=== PATIENT | female | born 1990 | race Caucasian/White ===

== ENCOUNTER 2022-09-14 16:10 | Outpatient (RCR) | payer OTHER, SELFPAY | END 2022-11-04 12:27 | disposition home or self-care (01) | LOC: PT 16:10 | PROVIDERS: PCP Nurse Practitioner; Visit Provider Personal Emergency Response Attendant | DX: M25.511 Pain in right shoulder (principal); Z98.890 Other specified postprocedural states | CPT/HCPCS: 97110; 97161 ==

== ENCOUNTER 2022-09-17 13:29 | Outpatient (OUT) | payer OTHER, SELFPAY | END 2022-09-17 13:30 | disposition home or self-care (01) | PROVIDERS: PCP Nurse Practitioner; Visit Provider Obstetrics & Gynecology | DX: Z01.818 Encounter for other preprocedural examination (principal); N83.209 Unspecified ovarian cyst, unspecified side; R10.2 Pelvic and perineal pain; N94.10 Unspecified dyspareunia ==

== ENCOUNTER 2022-09-25 08:33 | Day surgery (SDC) | payer OTHER, SELFPAY ==
[2022-09-17 14:04] VITALS: BP 115/75; PULSE 69; RESP 14; TEMP 36.8; O2SAT 98; BMI 29.7
[2022-09-25] VITALS (11 sets, daily range): BP systolic 111–135; BP diastolic 73–90; PULSE 68–102; RESP 15–23; TEMP 36.2–36.3; O2SAT 96–100; BMI 29.9
[2022-09-25 06:18] LABS: Basophils Percent Auto 0.8 % (0.2-2.0); Eosinophils Absolute Auto 0.1 10^3/uL (0.0-0.7); Eosinophils Percent Auto 1.8 % (0.9-7.0); Hematocrit 40.6 % (36.0-48.0); Hemoglobin 13.9 g/dL (12.0-16.0); Lymphocytes Absolute Auto 1.4 10^3/uL (1.2-3.8); Mean Corpuscular HGB Conc 34.2 g/dL (29.9-35.2); Mean Corpuscular Hemoglobin 30.7 pg (26.7-34.0); Mean Corpuscular Volume 89.6 fL (81.0-99.0); Mean Platelet Volume 11.3 fL (9.5-13.5); Monocytes Absolute Auto 0.2 10^3/uL (0.3-0.8); Monocytes Percent Auto 5.8 % (1.7-12.0); Neutrophils Percent Auto 53.6 % (43.0-75.0); Platelet Count 273 10^3/uL (150-450); Red Blood Count 4.53 10^6/uL (4.20-5.40); Red Cell Distribution Width 12.9 % (11.0-15.0); White Blood Count 3.8 10^3/uL (4.0-11.0)
[2022-09-25] MEDS: LACTATED RINGER'S SOLUTION 1,000 ML 50 ML IV ×2 (07:30→08:34)
[2022-09-25] MEDS: SCOPOLAMINE 1 EACH PATCH.TD.3 1 PATCH TD (07:30)
--- NOTE | 2022-09-25 08:40 | P.ON_ITS ---
Brief Operative Note Date of procedure: 09/25/22 Pre-op diagnosis: pelvic pain Post-op diagnosis: same as pre-op Procedure: NAME OF PROCEDURE: [diagnostic laparoscopy with lt ovarian cystotomy ] PROCEDURE: The patient was taken back to the Operating Room where she was placed in dorsal lithotomy position after given general anesthesia. The patient was prepped and draped in normal sterile fashion. A sponge stick was placed into the patient's vagina. Attention was turned to the patient's abdomen, where a small umbilical incision was made. The fascia was tented using Julia clamps and the fascia was entered sharply. Confirmation of intraabdominal placement of the 10 mm port was confirmed under direct visualization using a laparoscope. The patient's abdomen was then insufflated using CO2 gas with approximately 4 liters. A second port was placed left laterally, this was done under direct visualization with a 5 mm port. Survey of the patient's abdomen demonstrated normal liver and gallbladder. Survey of the patient's pelvic anatomy demonstrated abscent rt ovary and lt and rt and uterus. sm lt ovarian cyst No endometrial implants could be noted, no evidence of any pelvic disease was seen, normal appearing pelvic cavity. All instruments were removed from the patient's abdomen. Lt ovarian cystotomy performed using monopolar scissors. The patient's abdomen was deinsufflated of CO2 gas. The patient tolerated the procedure well. Sponge stick was removed from the patient's vagina. The patient's infraumbilical fascia was closed using #0 Vicryl on a GI needle. The patient's skin was closed laterally and infraumbilically using 4-0 Vicryl. The patient tolerated the procedure well. Sponge, lap and needle counts were correct x 2. The patient was taken to Recovery Room in stable condition.Clips from prior surgery noted adhered to bladder, the clips were grasped and gently removed Anesthesia: [facility] Surgeon: Marcos Moreno Photographs Curator: Malka Carbajal Estimated blood loss (mL): 5 Pathology: none sent Condition: stable Disposition: PACU
[2022-09-25] MEDS: HYDROMORPHONE HCL 0.5 MG/0.5 ML SYRINGE IV (09:02)
[2022-09-25] MEDS: HYDROCODONE/ACETAMINOPHEN 5-325 MG TABLET 1 TAB PO (09:22)
== END 2022-09-25 11:35 | disposition home or self-care (01) ==
LOC: SURGOUT 09-28 08:33
PROVIDERS: PCP Nurse Practitioner; Visit Provider Obstetrics & Gynecology
PROC: (CPT 58662; principal; 2022-09-25 07:30)
DX: N83.202 Unspecified ovarian cyst, left side (principal); R10.2 Pelvic and perineal pain; G47.33 Obstructive sleep apnea (adult) (pediatric); I10 Essential (primary) hypertension; Z98.84 Bariatric surgery status; K21.9 Gastro-esophageal reflux disease without esophagitis; M19.90 Unspecified osteoarthritis, unspecified site; E61.1 Iron deficiency; Z87.442 Personal history of urinary calculi; Z90.49 Acquired absence of other specified parts of digestive tract; Z90.710 Acquired absence of both cervix and uterus; E07.9 Disorder of thyroid, unspecified; Z79.899 Other long term (current) 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; Z79.890 Hormone replacement therapy
CPT/HCPCS: 58662; 36415; 85025; J1170

== ENCOUNTER 2022-11-16 10:49 | Outpatient (OUT) | payer OTHER, SELFPAY ==
--- NOTE | 2022-11-16 12:02 | PM.CN ---
Consult Note: HPI Data of Consult Patient: new to practice Consult date: 11/16/22 Requesting Physician: Michelle Minor MD Primary Care Provider: JAQUAN MORROW Consult Narrative Reason for consult: low back pain Narrative: 32yof who presents for evaluation. worsening axial low back pain, worsened with standing and ambulation. imaging reviewed, which is significant for spondylosis of the lumbar spine. engaged in >6 weeks of provider directed home exercises, with limited relief. utilizes topamax. denies adverse med side effects. cc:: CC: Michelle Minor MD Review of Systems ROS Status of ROS 10 or more systems reviewed and unremarkable except as noted in history and below [facility] Medical History Anemia ?D64.9 - Anemia, unspecified (ICD-10) Anxiety ?F41.9 - Anxiety disorder, unspecified (ICD-10) Asthma ?J45.909 - Unspecified asthma, uncomplicated (ICD-10) COVID-19 (~02/2020) ?U07.1 - COVID-19 (ICD-10) Depression ?F32.A - Depression, unspecified (ICD-10) Dyspareunia Fibromyalgia ?M79.7 - Fibromyalgia (ICD-10) GERD (gastroesophageal reflux disease) ?K21.9 - Gastro-esophageal reflux disease without esophagitis (ICD-10) Headache ?R51.9 - Headache, unspecified (ICD-10) Hypothyroidism (acquired) ?E03.9 - Hypothyroidism, unspecified (ICD-10) Kidney stones ?N20.0 - Calculus of kidney (ICD-10) Mechanical ileus (01/31/20) ?K56.609 - Unspecified intestinal obstruction, unspecified as to partial versus complete obstruction (ICD-10) Migraine ?G43.909 - Migraine, unspecified, not intractable, without status migrainosus (ICD-10) Ovarian cyst ?N83.209 - Unspecified ovarian cyst, unspecified side (ICD-10) PCOS (polycystic ovarian syndrome) ?E28.2 - Polycystic ovarian syndrome (ICD-10) Pelvic pain ?R10.2 - Pelvic and perineal pain (ICD-10) PONV (postoperative nausea and vomiting) ?R11.2 - Nausea with vomiting, unspecified (ICD-10) ?Z98.890 - Other specified postprocedural states (ICD-10) Shingles ?B02.9 - Zoster without complications (ICD-10) Sleep apnea ?G47.30 - Sleep apnea, unspecified (ICD-10) Syncope (07/07/13) ?R55 - Syncope and collapse (ICD-10) Surgical History Delivery by section (06/19/19) Delivery by section (01/17/18) Delivery by section (~2016) H/O arthroscopy of right knee (08/07/20) ?Z98.890 - Other specified postprocedural states (ICD-10) H/O colonoscopy (~2018) ?Z98.890 - Other specified postprocedural states (ICD-10) H/O laparoscopy (07/18/20) ?Z98.890 - Other specified postprocedural states (ICD-10) H/O laparoscopy (11/10/19) ?Z98.890 - Other specified postprocedural states (ICD-10) H/O shoulder surgery (2022) ?Z98.890 - Other specified postprocedural states (ICD-10) H/O: hysterectomy (11/12/20) ?Z90.710 - Acquired absence of both cervix and uterus (ICD-10) History of appendectomy (09/25/19) ?Z90.49 - Acquired absence of other specified parts of digestive tract (ICD-10) History of cholecystectomy (10/06/13) ?Z90.49 - Acquired absence of other specified parts of digestive tract (ICD-10) History of esophagogastroduodenoscopy (EGD) (10/04/13) ?Z98.890 - Other specified postprocedural states (ICD-10) History of hernia repair (03/20/21) ?Z98.890 - Other specified postprocedural states (ICD-10) ?Z87.19 - Personal history of other diseases of the digestive system (ICD-10) History of hip surgery ?Z98.890 - Other specified postprocedural states (ICD-10) History of liver biopsy (~04/2020) ?Z98.890 - Other specified postprocedural states (ICD-10) History of thoracic surgery (~2021) ?Z98.890 - Other specified postprocedural states (ICD-10) Hx of tonsillectomy ?Z90.89 - Acquired absence of other organs (ICD-10) S/P laparoscopic sleeve gastrectomy (09/03/20) ?Z98.84 - Bariatric surgery status (ICD-10) S/P left knee arthroscopy ?Z98.890 - Other specified postprocedural states (ICD-10) S/P right knee arthroscopy (07/21/18) ?Z98.890 - Other specified postprocedural states (ICD-10) S/P right knee arthroscopy ?Z98.890 - Other specified postprocedural states (ICD-10) Family History Other Family history of cancer Family history of diabetes mellitus Family history of hypertension Family history of myocardial infarction PONV (postoperative nausea and vomiting) Social History Within the past year, how often did you have a drink containing alcohol: never Score interpretation: A score less than 3 is consistent with normal alcohol consumption. Smoking status: Never smoker Highest level of school completed/degree received: Master's degree Meds Home Medications and Allergies Home Medications Medication Instructions Recorded Confirmed Type escitalopram oxalate 10 mg tablet 20 mg PO QDAY 09/17/22 09/25/22 History estradiol 1 mg tablet 0.5 mg PO QDAY 09/17/22 09/25/22 History hydroxyzine HCl 25 mg tablet 25 mg PO Q6H PRN anxiety 09/17/22 09/25/22 History levothyroxine 125 mcg tablet 125 mcg PO QDAY 09/17/22 09/25/22 History linaclotide 145 mcg capsule 145 mcg PO QDAY 09/17/22 09/25/22 History (Linzess) liothyronine 5 mcg tablet 5 mcg PO QDAY 09/17/22 09/25/22 History mirtazapine 15 mg tablet 15 mg PO Q12H 09/17/22 09/25/22 History topiramate 100 mg tablet 100 mg PO QDAY 09/17/22 09/25/22 History hydrocodone 5 mg-acetaminophen 325 1 tab PO Q4H PRN pain 4 days #16 09/25/22 Rx mg tablet tabs Allergies Allergy/AdvReac Type Severity Reaction Status Date / Time adhesive Allergy Rash Verified 09/17/22 13:49 codeine Allergy Vomiting Verified 09/17/22 13:19 NSAIDS (Non-Steroidal Allergy intolerance Verified 09/17/22 13:49 Anti-Inflamma Exam Narrative Exam Narrative: Psych-alert and oriented x 3. Attentive and appropriate, constitutionally normal, displays normal mood and affect per situation.? There are no obvious deficits in memory, reasoning, or intellect.? Skin-no obvious rashes, bruising, erythema noted to the patient's area of pain. Extremities- extremities are warm with minimal edema and palpable pulses. Lumbar-no significant tenderness to palpation noted in the lumbar spine and paraspinal musculature.? Pain is elicited with extension, and lateral rotation of the lumbar spine. Range of motion is slightly diminished with these motions due to pain. Facet loading maneuvers are positive bilaterally and do appear to be concordant with the patient's normal complaints of pain.? Coordination remains intact.? Gait remains non-antalgic. Assessment and Plan Assessment and Plan (1) Lumbar spondylosis: Plan 32yof who presents for evaluation. failed conservative measures, as noted. imaging reviewed. given symptoms and imaging, prudent to attempt diagnostic bilateral l4-5, l5-s1 medial branch block under fluoroscopic guidance with intention of proceeding to radiofrequency ablation. she is in agreement. medications reviewed, no changes at this time. follow up after procedure
== END 2022-11-16 10:50 | disposition home or self-care (01) ==
LOC: PM 10:50
PROVIDERS: PCP Nurse Practitioner; Visit Provider Anesthesiology
DX: M47.816 Spondylosis without myelopathy or radiculopathy, lumbar region (principal)
CPT/HCPCS: G0463

== ENCOUNTER 2022-12-05 12:24 | Outpatient (REF) | payer OTHER, SELFPAY ==
[2022-12-05 12:54] LABS: Basophils Percent Auto 1.1 % (0.2-2.0); Eosinophils Absolute Auto 0.1 10^3/uL (0.0-0.7); Eosinophils Percent Auto 3.4 % (0.9-7.0); Hematocrit 33.1 % (36.0-48.0); Hemoglobin 11.3 g/dL (12.0-16.0); Immature Granulocytes Abs Auto 0.01 10^3/uL (0.00-0.03); Immature Granulocytes Pct Auto 0.3 % (0.0-0.5); Lymphocytes Absolute Auto 1.4 10^3/uL (1.2-3.8); Lymphocytes Percent Auto 38.5 % (20.5-60.0); Mean Corpuscular HGB Conc 34.1 g/dL (29.9-35.2); Mean Corpuscular Volume 90.9 fL (81.0-99.0); Mean Platelet Volume 13.1 fL (9.5-13.5); Monocytes Absolute Auto 0.3 10^3/uL (0.3-0.8); Monocytes Percent Auto 9.3 % (1.7-12.0); Neutrophils Absolute Auto 1.7 10^3/uL (1.4-6.5); Neutrophils Percent Auto 47.4 % (43.0-75.0); Platelet Count 190 10^3/uL (150-450); Red Blood Count 3.64 10^6/uL (4.20-5.40); Red Cell Distribution Width 13.2 % (11.0-15.0); White Blood Count 3.6 10^3/uL (4.0-11.0)
[2022-12-05 13:05] LABS: Alanine Aminotransferase 23 U/L (14-59); Albumin Globulin Ratio 1.4; Albumin Level 3.4 g/dL (3.4-5.0); Alkaline Phosphatase 66 U/L (46-116); Anion Gap 12.9; Aspartate Amino Transferase 24 U/L (15-37); BUN Creatinine Ratio 29.2; Bilirubin Total 0.3 mg/dL (0.2-1.0); Carbon Dioxide 25.9 mmol/L (21.0-32.0); Chloride 106 mmol/L (98-107); Estimated GFR (African America >60 (>=60); Estimated GFR (Non-African Ame >60 (>=60); Globulin 2.5 g/dL; Glucose 82 mg/dL (74-106); Magnesium 1.6 mg/dL (1.8-2.4); Phosphorus 3.9 mg/dL (2.6-4.7); Potassium 3.8 mmol/L (3.5-5.1); Sodium 141 mmol/L (136-145); Total Protein 5.9 g/dL (6.4-8.2); Triglycerides 70 mg/dL (<=150)
== END 2022-12-05 12:25 | disposition home or self-care (01) ==
LOC: LAB 12:24
PROVIDERS: PCP Nurse Practitioner
DX: Z79.899 Other long term (current) 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 (principal)
CPT/HCPCS: 36415; 80053; 83735; 84100; 84478; 85025

== ENCOUNTER 2022-12-22 15:26 | Outpatient (REF) | payer OTHER, SELFPAY ==
[2022-12-22 15:55] LABS: Basophils Absolute Auto 0.1 10^3/uL (0.0-0.1); Basophils Percent Auto 1.1 % (0.2-2.0); Eosinophils Absolute Auto 0.2 10^3/uL (0.0-0.7); Eosinophils Percent Auto 3.3 % (0.9-7.0); Hematocrit 34.1 % (36.0-48.0); Hemoglobin 11.6 g/dL (12.0-16.0); Immature Granulocytes Abs Auto 0.01 10^3/uL (0.00-0.03); Immature Granulocytes Pct Auto 0.2 % (0.0-0.5); Lymphocytes Absolute Auto 1.9 10^3/uL (1.2-3.8); Lymphocytes Percent Auto 41.6 % (20.5-60.0); Mean Corpuscular Hemoglobin 31.1 pg (26.7-34.0); Mean Corpuscular Volume 91.4 fL (81.0-99.0); Mean Platelet Volume 13.1 fL (9.5-13.5); Monocytes Absolute Auto 0.4 10^3/uL (0.3-0.8); Monocytes Percent Auto 9.4 % (1.7-12.0); Neutrophils Percent Auto 44.4 % (43.0-75.0); Platelet Count 187 10^3/uL (150-450); Red Blood Count 3.73 10^6/uL (4.20-5.40); Red Cell Distribution Width 13.1 % (11.0-15.0); White Blood Count 4.6 10^3/uL (4.0-11.0)
[2022-12-22 16:17] LABS: Alanine Aminotransferase 24 U/L (14-59); Albumin Globulin Ratio 1.1; Albumin Level 3.3 g/dL (3.4-5.0); Alkaline Phosphatase 61 U/L (46-116); Anion Gap 9.6; Aspartate Amino Transferase 31 U/L (15-37); BUN Creatinine Ratio 19.3; Bilirubin Total 0.3 mg/dL (0.2-1.0); Calcium 8.6 mg/dL (8.5-10.1); Carbon Dioxide 29.2 mmol/L (21.0-32.0); Chloride 103 mmol/L (98-107); Estimated GFR (African America >60 (>=60); Estimated GFR (Non-African Ame >60 (>=60); Glucose 78 mg/dL (74-106); Magnesium 1.9 mg/dL (1.8-2.4); Phosphorus 4.9 mg/dL (2.6-4.7); Potassium 3.8 mmol/L (3.5-5.1); Sodium 138 mmol/L (136-145); Total Protein 6.3 g/dL (6.4-8.2); Triglycerides 47 mg/dL (<=150)
== END 2022-12-22 15:27 | disposition home or self-care (01) ==
LOC: LAB 15:26
PROVIDERS: PCP Nurse Practitioner
DX: Z79.899 Other long term (current) 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 (principal)
CPT/HCPCS: 36415; 80053; 83735; 84100; 84478; 85025

== ENCOUNTER 2022-12-29 10:15 | Outpatient (REF) | payer OTHER, SELFPAY ==
[2022-12-29 10:39] LABS: Basophils Percent Auto 1.1 % (0.2-2.0); Eosinophils Percent Auto 0.8 % (0.9-7.0); Hematocrit 34.3 % (36.0-48.0); Hemoglobin 11.9 g/dL (12.0-16.0); Lymphocytes Absolute Auto 1.3 10^3/uL (1.2-3.8); Mean Corpuscular HGB Conc 34.7 g/dL (29.9-35.2); Mean Corpuscular Hemoglobin 31.7 pg (26.7-34.0); Mean Corpuscular Volume 91.5 fL (81.0-99.0); Mean Platelet Volume 12.8 fL (9.5-13.5); Monocytes Absolute Auto 0.5 10^3/uL (0.3-0.8); Monocytes Percent Auto 13.5 % (1.7-12.0); Neutrophils Absolute Auto 1.8 10^3/uL (1.4-6.5); Neutrophils Percent Auto 48.6 % (43.0-75.0); Platelet Count 169 10^3/uL (150-450); Red Blood Count 3.75 10^6/uL (4.20-5.40); White Blood Count 3.6 10^3/uL (4.0-11.0)
[2022-12-29 11:05] LABS: Calcium 8.5 mg/dL (8.5-10.1); Carbon Dioxide 23.6 mmol/L (21.0-32.0); Chloride 105 mmol/L (98-107); Estimated GFR (African America >60 (>=60); Estimated GFR (Non-African Ame >60 (>=60); Glucose 78 mg/dL (74-106); Potassium 3.6 mmol/L (3.5-5.1); Sodium 137 mmol/L (136-145)
[2022-12-29 11:06] LABS: Magnesium 1.8 mg/dL (1.8-2.4); Phosphorus 4.1 mg/dL (2.6-4.7); Triglycerides 70 mg/dL (<=150)
== END 2022-12-29 10:16 | disposition home or self-care (01) ==
LOC: LAB 10:15
PROVIDERS: PCP Nurse Practitioner
DX: I77.4 Celiac artery compression syndrome (principal)
CPT/HCPCS: 36415; 80048; 83735; 84100; 84478; 85025

== ENCOUNTER 2023-01-05 09:49 | Outpatient (REF) | payer OTHER, SELFPAY ==
[2023-01-05 10:20] LABS: Basophils Percent Auto 0.6 % (0.2-2.0); Eosinophils Absolute Auto 0.1 10^3/uL (0.0-0.7); Eosinophils Percent Auto 1.9 % (0.9-7.0); Hematocrit 35.1 % (36.0-48.0); Immature Granulocytes Abs Auto 0.01 10^3/uL (0.00-0.03); Immature Granulocytes Pct Auto 0.2 % (0.0-0.5); Lymphocytes Absolute Auto 1.3 10^3/uL (1.2-3.8); Lymphocytes Percent Auto 27.9 % (20.5-60.0); Mean Corpuscular HGB Conc 34.2 g/dL (29.9-35.2); Mean Corpuscular Hemoglobin 31.5 pg (26.7-34.0); Mean Corpuscular Volume 92.1 fL (81.0-99.0); Mean Platelet Volume 12.2 fL (9.5-13.5); Monocytes Absolute Auto 0.3 10^3/uL (0.3-0.8); Monocytes Percent Auto 6.3 % (1.7-12.0); Neutrophils Percent Auto 63.1 % (43.0-75.0); Platelet Count 198 10^3/uL (150-450); Red Blood Count 3.81 10^6/uL (4.20-5.40); Red Cell Distribution Width 12.8 % (11.0-15.0); White Blood Count 4.8 10^3/uL (4.0-11.0)
[2023-01-05 12:01] LABS: Anion Gap 13.8; BUN Creatinine Ratio 12.5; Calcium 8.5 mg/dL (8.5-10.1); Carbon Dioxide 23.5 mmol/L (21.0-32.0); Chloride 107 mmol/L (98-107); Estimated GFR (African America >60 (>=60); Estimated GFR (Non-African Ame >60 (>=60); Glucose 99 mg/dL (74-106); Phosphorus 3.7 mg/dL (2.6-4.7); Potassium 3.3 mmol/L (3.5-5.1); Sodium 141 mmol/L (136-145); Triglycerides 80 mg/dL (<=150)
== END 2023-01-05 09:50 | disposition home or self-care (01) ==
LOC: LAB 09:49
PROVIDERS: PCP Nurse Practitioner
DX: Z79.899 Other long term (current) 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 (principal)
CPT/HCPCS: 36415; 80048; 83735; 84100; 84478; 85025

== ENCOUNTER 2023-01-12 18:09 | Outpatient (REF) | payer OTHER, SELFPAY ==
[2023-01-12 19:17] LABS: Alanine Aminotransferase 18 U/L (14-59); Albumin Globulin Ratio 1.2; Albumin Level 2.7 g/dL (3.4-5.0); Alkaline Phosphatase 54 U/L (46-116); Aspartate Amino Transferase 14 U/L (15-37); BUN Creatinine Ratio 15.4; Basophils Percent Auto 0.6 % (0.2-2.0); Bilirubin Total 0.5 mg/dL (0.2-1.0); Calcium 6.7 mg/dL (8.5-10.1); Carbon Dioxide 20.8 mmol/L (21.0-32.0); Chloride 113 mmol/L (98-107); Eosinophils Absolute Auto 0.1 10^3/uL (0.0-0.7); Eosinophils Percent Auto 0.8 % (0.9-7.0); Estimated GFR (African America >60 (>=60); Estimated GFR (Non-African Ame >60 (>=60); Globulin 2.2 g/dL; Glucose 68 mg/dL (74-106); Hematocrit 32.2 % (36.0-48.0); Hemoglobin 11.3 g/dL (12.0-16.0); Immature Granulocytes Abs Auto 0.01 10^3/uL (0.00-0.03); Immature Granulocytes Pct Auto 0.2 % (0.0-0.5); Lymphocytes Absolute Auto 2.2 10^3/uL (1.2-3.8); Lymphocytes Percent Auto 34.7 % (20.5-60.0); Magnesium 1.4 mg/dL (1.8-2.4); Mean Corpuscular HGB Conc 35.1 g/dL (29.9-35.2); Mean Corpuscular Hemoglobin 31.6 pg (26.7-34.0); Mean Corpuscular Volume 89.9 fL (81.0-99.0); Monocytes Absolute Auto 0.4 10^3/uL (0.3-0.8); Monocytes Percent Auto 6.6 % (1.7-12.0); Neutrophils Absolute Auto 3.6 10^3/uL (1.4-6.5); Neutrophils Percent Auto 57.1 % (43.0-75.0); Phosphorus 3.3 mg/dL (2.6-4.7); Platelet Count 200 10^3/uL (150-450); Red Blood Count 3.58 10^6/uL (4.20-5.40); Red Cell Distribution Width 12.1 % (11.0-15.0); Sodium 145 mmol/L (136-145); Total Protein 4.9 g/dL (6.4-8.2); Triglycerides 48 mg/dL (<=150); White Blood Count 6.4 10^3/uL (4.0-11.0)
[2023-01-12 19:25] LABS: Potassium 2.8 mmol/L (3.5-5.1)
== END 2023-01-12 18:10 | disposition home or self-care (01) ==
LOC: LAB 18:09
PROVIDERS: PCP Nurse Practitioner
DX: I77.4 Celiac artery compression syndrome (principal)
CPT/HCPCS: 36415; 80053; 83735; 84100; 84478; 85025

== ENCOUNTER 2023-01-19 17:35 | Outpatient (REF) | payer OTHER, SELFPAY ==
[2023-01-19 19:06] LABS: Basophils Percent Auto 0.6 % (0.2-2.0); Eosinophils Absolute Auto 0.1 10^3/uL (0.0-0.7); Eosinophils Percent Auto 1.4 % (0.9-7.0); Hematocrit 32.2 % (36.0-48.0); Hemoglobin 11.1 g/dL (12.0-16.0); Immature Granulocytes Abs Auto 0.01 10^3/uL (0.00-0.03); Immature Granulocytes Pct Auto 0.2 % (0.0-0.5); Lymphocytes Absolute Auto 2.1 10^3/uL (1.2-3.8); Lymphocytes Percent Auto 42.1 % (20.5-60.0); Mean Corpuscular HGB Conc 34.5 g/dL (29.9-35.2); Mean Corpuscular Hemoglobin 31.4 pg (26.7-34.0); Mean Platelet Volume 12.2 fL (9.5-13.5); Monocytes Absolute Auto 0.4 10^3/uL (0.3-0.8); Monocytes Percent Auto 8.9 % (1.7-12.0); Neutrophils Absolute Auto 2.3 10^3/uL (1.4-6.5); Neutrophils Percent Auto 46.8 % (43.0-75.0); Platelet Count 255 10^3/uL (150-450); Red Blood Count 3.54 10^6/uL (4.20-5.40)
[2023-01-19 19:53] LABS: Alanine Aminotransferase 18 U/L (14-59); Albumin Globulin Ratio 1.3; Albumin Level 3.6 g/dL (3.4-5.0); Alkaline Phosphatase 67 U/L (46-116); Anion Gap 12.7; Aspartate Amino Transferase 21 U/L (15-37); Bilirubin Total 0.4 mg/dL (0.2-1.0); Calcium 8.7 mg/dL (8.5-10.1); Carbon Dioxide 26.7 mmol/L (21.0-32.0); Chloride 104 mmol/L (98-107); Estimated GFR (African America >60 (>=60); Estimated GFR (Non-African Ame >60 (>=60); Globulin 2.8 g/dL; Glucose 99 mg/dL (74-106); Magnesium 1.7 mg/dL (1.8-2.4); Phosphorus 3.9 mg/dL (2.6-4.7); Potassium 3.4 mmol/L (3.5-5.1); Sodium 140 mmol/L (136-145); Total Protein 6.4 g/dL (6.4-8.2); Triglycerides 43 mg/dL (<=150)
== END 2023-01-19 17:36 | disposition home or self-care (01) ==
LOC: LAB 17:35
PROVIDERS: PCP Nurse Practitioner
DX: I77.4 Celiac artery compression syndrome (principal)
CPT/HCPCS: 36415; 80053; 83735; 84100; 84478; 85025

== ENCOUNTER 2023-01-26 17:41 | Outpatient (REF) | payer OTHER, SELFPAY ==
[2023-01-26 18:45] LABS: Basophils Percent Auto 0.8 % (0.2-2.0); Eosinophils Percent Auto 0.8 % (0.9-7.0); Hematocrit 30.6 % (36.0-48.0); Hemoglobin 10.4 g/dL (12.0-16.0); Immature Granulocytes Abs Auto 0.01 10^3/uL (0.00-0.03); Immature Granulocytes Pct Auto 0.3 % (0.0-0.5); Lymphocytes Absolute Auto 1.4 10^3/uL (1.2-3.8); Lymphocytes Percent Auto 35.1 % (20.5-60.0); Mean Corpuscular Hemoglobin 31.1 pg (26.7-34.0); Mean Corpuscular Volume 91.6 fL (81.0-99.0); Mean Platelet Volume 12.2 fL (9.5-13.5); Monocytes Absolute Auto 0.2 10^3/uL (0.3-0.8); Monocytes Percent Auto 6.2 % (1.7-12.0); Neutrophils Absolute Auto 2.2 10^3/uL (1.4-6.5); Neutrophils Percent Auto 56.8 % (43.0-75.0); Platelet Count 179 10^3/uL (150-450); Red Blood Count 3.34 10^6/uL (4.20-5.40); Red Cell Distribution Width 12.6 % (11.0-15.0); White Blood Count 3.9 10^3/uL (4.0-11.0)
[2023-01-26 18:56] LABS: Alanine Aminotransferase 19 U/L (14-59); Albumin Globulin Ratio 1.2; Albumin Level 3.3 g/dL (3.4-5.0); Alkaline Phosphatase 61 U/L (46-116); Anion Gap 9.4; Aspartate Amino Transferase 26 U/L (15-37); BUN Creatinine Ratio 9.8; Bilirubin Total 0.6 mg/dL (0.2-1.0); Calcium 8.3 mg/dL (8.5-10.1); Carbon Dioxide 26.7 mmol/L (21.0-32.0); Chloride 106 mmol/L (98-107); Estimated GFR (African America >60 (>=60); Estimated GFR (Non-African Ame >60 (>=60); Globulin 2.8 g/dL; Glucose 117 mg/dL (74-106); Magnesium 1.9 mg/dL (1.8-2.4); Phosphorus 3.5 mg/dL (2.6-4.7); Potassium 3.1 mmol/L (3.5-5.1); Sodium 139 mmol/L (136-145); Total Protein 6.1 g/dL (6.4-8.2); Triglycerides 33 mg/dL (<=150)
== END 2023-01-26 17:42 | disposition home or self-care (01) ==
LOC: LAB 17:41
PROVIDERS: PCP Nurse Practitioner
DX: I77.4 Celiac artery compression syndrome (principal)
CPT/HCPCS: 36415; 80053; 83735; 84100; 84478; 85025

== ENCOUNTER 2023-02-01 20:26 | Outpatient (REF) | payer OTHER, SELFPAY ==
[2023-02-01 21:17] LABS: Basophils Percent Auto 0.7 % (0.2-2.0); Eosinophils Percent Auto 0.4 % (0.9-7.0); Hematocrit 31.1 % (36.0-48.0); Hemoglobin 10.5 g/dL (12.0-16.0); Lymphocytes Absolute Auto 0.5 10^3/uL (1.2-3.8); Lymphocytes Percent Auto 18.6 % (20.5-60.0); Mean Corpuscular HGB Conc 33.8 g/dL (29.9-35.2); Mean Corpuscular Hemoglobin 31.4 pg (26.7-34.0); Mean Corpuscular Volume 93.1 fL (81.0-99.0); Mean Platelet Volume 12.2 fL (9.5-13.5); Monocytes Absolute Auto 0.3 10^3/uL (0.3-0.8); Monocytes Percent Auto 9.3 % (1.7-12.0); Platelet Count 178 10^3/uL (150-450); Red Blood Count 3.34 10^6/uL (4.20-5.40); Red Cell Distribution Width 12.8 % (11.0-15.0); White Blood Count 2.8 10^3/uL (4.0-11.0)
[2023-02-01 21:21] LABS: Alanine Aminotransferase 12 U/L (14-59); Albumin Level 3.2 g/dL (3.4-5.0); Alkaline Phosphatase 59 U/L (46-116); Aspartate Amino Transferase 23 U/L (15-37); BUN Creatinine Ratio 12.5; Bilirubin Total 0.4 mg/dL (0.2-1.0); Calcium 8.5 mg/dL (8.5-10.1); Carbon Dioxide 27.5 mmol/L (21.0-32.0); Chloride 102 mmol/L (98-107); Estimated GFR (African America >60 (>=60); Estimated GFR (Non-African Ame >60 (>=60); Globulin 3.1 g/dL; Glucose 75 mg/dL (74-106); Magnesium 1.8 mg/dL (1.8-2.4); Potassium 3.5 mmol/L (3.5-5.1); Sodium 137 mmol/L (136-145); Total Protein 6.3 g/dL (6.4-8.2); Triglycerides 41 mg/dL (<=150)
== END 2023-02-01 20:27 | disposition home or self-care (01) ==
LOC: LAB 20:26
PROVIDERS: PCP Nurse Practitioner
DX: I77.4 Celiac artery compression syndrome (principal)
CPT/HCPCS: 36415; 80053; 83735; 84100; 84478; 85025

== ENCOUNTER 2023-02-10 09:40 | Outpatient (REF) | payer OTHER, SELFPAY ==
[2023-02-10 10:22] LABS: Eosinophils Absolute Auto 0.1 10^3/uL (0.0-0.7); Eosinophils Percent Auto 2.4 % (0.9-7.0); Hematocrit 37.3 % (36.0-48.0); Hemoglobin 12.6 g/dL (12.0-16.0); Immature Granulocytes Abs Auto 0.01 10^3/uL (0.00-0.03); Immature Granulocytes Pct Auto 0.2 % (0.0-0.5); Lymphocytes Absolute Auto 1.3 10^3/uL (1.2-3.8); Lymphocytes Percent Auto 31.5 % (20.5-60.0); Mean Corpuscular HGB Conc 33.8 g/dL (29.9-35.2); Mean Corpuscular Hemoglobin 31.1 pg (26.7-34.0); Mean Corpuscular Volume 92.1 fL (81.0-99.0); Mean Platelet Volume 11.7 fL (9.5-13.5); Monocytes Absolute Auto 0.3 10^3/uL (0.3-0.8); Monocytes Percent Auto 7.6 % (1.7-12.0); Neutrophils Absolute Auto 2.4 10^3/uL (1.4-6.5); Neutrophils Percent Auto 57.3 % (43.0-75.0); Platelet Count 313 10^3/uL (150-450); Red Blood Count 4.05 10^6/uL (4.20-5.40); Red Cell Distribution Width 12.2 % (11.0-15.0); White Blood Count 4.1 10^3/uL (4.0-11.0)
[2023-02-10 10:57] LABS: Alanine Aminotransferase 23 U/L (14-59); Albumin Level 3.6 g/dL (3.4-5.0); Alkaline Phosphatase 70 U/L (46-116); Anion Gap 15.4; Aspartate Amino Transferase 19 U/L (15-37); BUN Creatinine Ratio 11.8; Bilirubin Total 0.4 mg/dL (0.2-1.0); Calcium 8.8 mg/dL (8.5-10.1); Carbon Dioxide 23.7 mmol/L (21.0-32.0); Chloride 107 mmol/L (98-107); Estimated GFR (African America >60 (>=60); Estimated GFR (Non-African Ame >60 (>=60); Globulin 0.3 g/dL; Glucose 72 mg/dL (74-106); Phosphorus 3.7 mg/dL (2.6-4.7); Potassium 4.1 mmol/L (3.5-5.1); Sodium 142 mmol/L (136-145); Total Protein 3.9 g/dL (6.4-8.2); Triglycerides 105 mg/dL (<=150)
== END 2023-02-10 09:41 | disposition home or self-care (01) ==
LOC: LAB 09:40
PROVIDERS: PCP Nurse Practitioner
DX: I77.4 Celiac artery compression syndrome (principal)
CPT/HCPCS: 36415; 80053; 83735; 84100; 84478; 85025

== ENCOUNTER 2023-02-23 17:22 | Outpatient (REF) | payer OTHER, SELFPAY ==
--- OUTSIDE RECORDS SUMMARY | 2023-02-23 17:36 | XMS_ITS | CCD ---
Author Name Unknown Address [address] [place] [address] Organization [facility] Care Team Providers Care Chocolate Molder Name Role Phone PHYSICIAN, DEFAULT Unavailable Unavailable PHYSICIAN, DEFAULT Unavailable Unavailable Shanna June Primary Care Provider Unavail able Slade MONTESSORI PROGRAM DIRECTOR, Shanna Primary Care Provider Mona vailable Slade ROVING WEIGHT GAUGER - TACTICAL DECEPTION PLANS OFFICER, Shanna Primary Care Provid er LUCIE MORA Attending Unavailable SHANNA JUNE Primary Care Unavailable SHANNA JUNE Referring Unavailable LUCIE MORA Attending Unavailable SHANNA JUNE Primary Care Unavailable SELF, SELF Referring Unavailable Antelmo Davey Unavailable [phone] Deacon Kat MD Unavailable Shanna June CNP Unavailable Shanna June CNP Primary Care Provider Antelmo Davey MD Unavailable Wally Foley Primary Care Provider Shanna June Unavailable Wally Foley Primary Care Provider [phone] Antelmo Davey MD Unavailable Deacon Kat MD Unavailable Shanna June CNP Unavailable [phone] Shanna June CNP Primary Care Provider Antelmo Davey MD Unavailable Deacon Kat MD Unavailable [phone] Shanna June CNP Unavailable Shanna June CNP Primary Care Provider Slade OBGYN HOSPITALIST PHYSICIAN, Shanna Unavailable [phone] Slade OBGYN HOSPITALIST PHYSICIAN, Shanna Primary Care Provider Tamica JOHNSON Edcharles nUger Unavailable Jacquelyn JOHNSON Deacon Gregory Unavailable Slade OBGYN HOSPITALIST PHYSICIAN, Shanna Unavailable Slade OBGYN HOSPITALIST PHYSICIAN, Shanna Primary Care Provider Wally Foley MD Primary Care Provider Jaquan Morrow Primary Care Physician [phone] Agustin Valentino Unavailable Jaquan Morrow Primary Care Provider [phone] FOLEY ., DR WALLY Graf Primary Care Unavailable FOLEY ., DR WALLY Graf Consulting Unavailable FOLEY ., DR WALLY Graf Attending Unavailable FOLEY ., DR WALLY Graf Admitting Unavailable ZIEBER, DR ALVERTO [place] Consulting Unavailable FOLEY ., DR WALLY Graf Primary Care Unavailable FOLEY ., DR WALLY Graf Consulting Unavailable FOLEY ., DR WALLY Graf Attending Unavailable FOLEY ., DR WALLY Graf Admitting Unavailable ZIEBER, DR ALVERTO [place] Consulting Unavailable FOLEY ., DR WALLY Graf Primary Care Unavailable SLADE, SHANNA Attending Unavailable SLADE, SHANNA Admitting Unavailable ZURDO ., DR BURCH Consulting Unavailable ZURDO ., DR BURCH Attending Unavailable ZURDO ., DR BURCH Admitting Unavailable FOLEY ., DR WALLY Graf Primary Care Unavailable FOLEY ., DR WALLY Graf Primary Care Unavailable VALENTINO ., MR AGUSTIN Consulting Unavailable VALENTINO ., MR AGUSTIN Attending Unavailable VALENTINO ., MR AGUSTIN Admitting Unavailable FOLEY ., DR WALLY Graf Primary Care Unavailable ZURDO ., DR BURCH Attending Unavailable ZURDO ., DR BURCH Admitting Unavailable HENDRICKS, DR BALDOMERO Campos Consulting Unavailable ZURDO ., DR BURCH Consulting Unavailable FOLEY ., DR WALLY Graf Primary Care Unavailable FOLEY ., DR WALLY Graf Consulting Unavailable FOLEY ., DR WALLY Graf Attending Unavailable FOLEY ., DR WALLY Graf Admitting Unavailable FOLEY ., DR WALLY Graf Primary Care Unavailable FOLEY ., DR WALLY Graf Consulting Unavailable FOLEY ., DR WALLY Graf Attending Unavailable FOLEY ., DR WALLY Graf Admitting Unavailable FOLEY ., DR WALLY Graf Primary Care Unavailable FOLEY ., DR WALLY Graf Consulting Unavailable FOLEY ., DR WALLY Graf Attending Unavailable FOLEY ., DR WALLY Graf Admitting Unavailable ZIEBER, DR ALVERTO [place] Consulting Unavailable MISC, DR CONTRERAS Attending Unavailable FOLEY ., DR WALLY Graf Primary Care Unavailable MISC, DR CONTRERAS Admitting Unavailable MISC, DR CONTRERAS Primary Care Unavailable DAREK ., BRUNA Attending Unavailable DAREK ., BRUNA Admitting Unavailable ZIEBER, DR ALVERTO [place] Consulting Unavailable DAREK ., BRUNA Consulting Unavailable FOLEY ., DR WALLY Graf Primary Care Unavailable ZURDO ., DR BURCH Referring Unavailable GIEDRAITIS, MILI Attending Unavailable GIEDRAITIS, ANDRIUS Admitting Unavailable Agustin Valentino Unavailable Agustin Bautista Unavailable Wally Foley Primary Care Provider WALLY FOLEY Primary Care Unavailable EMMY WATSON~[id number] Attending Unavailable WALLY FOLEY Primary Care Unavailable JD RAINEY Attending Unavailable WALLY FOLEY Primary Care Unavailable Shanna Roberts Primary Care Provider Mona DIMITRI Ace Attending Unavailable SLADE SHANNA Primary Care Unavailable CRISTHIAN, JAQUAN Primary Care Unavailable PABLO LEBRON Attending Unavailable PABLO LEBRON Attending Unavailable CRISTHIAN, JAQUAN Primary Care Unavailable PABLO LEBRON Referring Unavailable PABLO LEBRON Attending Unavailable CRISTHIAN, JAQUAN Primary Care Unavailable Mili Minor MD Attending Unavailable DEACON KAT Referring Unavailable CRISTHIAN, JAQUAN Primary Care Unavailable IOANA HOGAN Referring Unavailable WALLY FOLEY Primary Care Unavailable DEACON KAT Referring Unavailable WALLY FOLEY Primary Care Unavailable KEESHA SNIDER Attending Unavailable CRISTHIAN, JAQUAN Primary Care Unavailable ANN ANDERSON Referring Unavailab le CRISTHIAN, JAQUAN Primary Care Unavailable ALIDA GALORAN Attending Unavailable MOIRA FAIR Consulting Unavailable BEATRICE, RASHMI Admitting Unavailable STEVE GALO Admitting Unavailable CRISTHIAN, JAQUAN Primary Care Unavailable XOCHILT MURILLO Attending Unavailable ALBERT HUBBARD Consulting Unavailable GONZALEZ, CORIE H Attending Unavailable CRISTHIAN, JAQUAN Primary Care Unavailable RAYNA COYLE Attending Unavailable CRISTHIAN, JAQUAN Primary Care Unavailable SIMA ROBINS Consulting Unavailable JOHANA GARRIDO Admitting Unavailable WALLY FOLEY EDCHARLES Primary Care Unavailable GUTNICK, DEACON R Attending Unavailable BREANNA STERN Referring Unavailable GUTNICK, DEACON R Referring Unavailable CRISTHIAN, JAQUAN Primary Care Unavailable CRISTHIAN, JAQUAN Primary Care Unavailable SHANNA JUNE Primary Care Unavailable GUTNICK, DEACON R Admitting Unavailable GUTNICK, DEACON R Attending Unavailable GUTNICK, DEACON R Admitting Unavailable GUTNICK, DEACON R Attending Unavailable CRISTHIAN, JAQUAN Primary Care Unavailable CRISTHIAN, JAQUAN Primary Care Unavailable CRISTHIAN, JAQUAN Primary Care Unavailable CRISTHIAN, JAQUAN Primary Care Unavailable RODRIGUEZ Attending Unavailable CAMDEN GOODRICH Admitting Unavailable CRISTHIAN, JAQUAN Primary Care Unavailable JAMI WHEAT Consulting Unavailable CORIE HENDRICKSON Attending Unavailable Cristhian ROVING WEIGHT GAUGER.BETH, Jaquan Johnson Primary Care Provider [phone] Cristhian, MONTESSORI PROGRAM DIRECTOR Jaquan L Attending Unavailable Cristhian, MONTESSORI PROGRAM DIRECTOR Jaquan L Attending Unavailable Cristhian, MONTESSORI PROGRAM DIRECTOR Jaquan L Attending Unavailable Cristhian, MONTESSORI PROGRAM DIRECTOR Jaquan L Attending Unavailable Cristhian, MONTESSORI PROGRAM DIRECTOR Jaquan L Admitting Unavailable Cristhian, MONTESSORI PROGRAM DIRECTOR Jaquan L Attending Unavailable Cristhian, MONTESSORI PROGRAM DIRECTOR Jaquan L Admitting Unavailable Cristhian, MONTESSORI PROGRAM DIRECTOR Jaquan L Attending Unavailable Cristhian, MONTESSORI PROGRAM DIRECTOR Jaquan L Attending Unavailable Cristhian, MONTESSORI PROGRAM DIRECTOR Jaquan L Attending Unavailable Cristhian, MONTESSORI PROGRAM DIRECTOR Jaquan L Attending Unavailable Cristhian, MONTESSORI PROGRAM DIRECTOR Jaquan L Attending Unavailable Cristhian, MONTESSORI PROGRAM DIRECTOR Jaquan L Attending Unavailable Cristhian, MONTESSORI PROGRAM DIRECTOR Jaquan L Attending Unavailable Rajni Rouse Attending Unavailable Cristhian, MONTESSORI PROGRAM DIRECTOR Jaquan L Referring Unavailable Rajni Rouse Attending Unavailable Hajdari, Astrit H Attending Unavailable Cristhian, MONTESSORI PROGRAM DIRECTOR Jaquan L Attending Unavailable Cristhian, MONTESSORI PROGRAM DIRECTOR Jaquan L Attending Unavailable Cristhian, MONTESSORI PROGRAM DIRECTOR Jaquan L Attending Unavailable Cristhian, MONTESSORI PROGRAM DIRECTOR Jaquan L Attending Unavailable MD Lokesh Terry Attending Unavailable Mateusz Garcia Attending Unavailable Earnest Jett Attending Unavailable Earnest Jett Attending Unavailable Hajdari, Astrit H Attending Unavailable Cristhian, MONTESSORI PROGRAM DIRECTOR Jaquan L Admitting Unavailable Cristhian, MONTESSORI PROGRAM DIRECTOR Jaquan L Attending Unavailable Cristhian, MONTESSORI PROGRAM DIRECTOR Jaquan L Attending Unavailable Cristhian, MONTESSORI PROGRAM DIRECTOR Jaquan L Attending Unavailable CRISTHIAN, JAQUAN L Primary Care Unavailable VIC RAMOS Attending Unavailable VIC RAMOS Admitting Unavailable Cristhian, TACTICAL DECEPTION PLANS OFFICER-C Jaquan Ortega Primary Care Provider DO Claus Obrien Emergency Provider Claus Obrien Attending Unavailable Claus Obrien Admitting Unavailable Cristhian, Jaquan Ortega Primary Care Unavailable GENERIC PROVIDER, NO ASSIGNED PCP Primary Care Unavailable KASIE AVALOS Attending Unavailable CRISTHIAN, JAQUAN L Primary Care Unavailable DEACON KAT Referring Unavailable DEACON KAT Attending Unavailable CRISTHIAN, JAQUAN L Primary Care Unavailable CRISTHIAN, JAQUAN L Primary Care Unavailable CRISTHIAN, JAQUAN L Primary Care Unavailable BREANNA STERN Referring Unavailable ELIAS MUNOZ Attending Mona vailable CRISTHIAN, JAQUAN L Primary Care Unavailable MARCEL HARRY Admitting Unavailable CRISTHIAN, JAQUAN L Primary Care Unavailable CIARA BELLO Attending Unavailable CRISTHIAN, JAQUAN L Primary Care Unavailable RYLEE THACKER Attending Unavailable XIOMARA MARTINEZ Attending Unavailable CRISTHIAN, JAQUAN L Primary Care Unavailable JOSEDYELIAS Referring Mona vailable CRISTHIAN, JAQUAN L Primary Care Unavailable MARICRUZ GARCIA Attending Unavailable RYLEE THACKER Attending Unavailable WALLY FOLEY Primary Care Unavailable CRISTHIAN, JAQUAN L Primary Care Unavailable RYLEE THACKER Referring Unavailable RYLEE THACKER Attending Unavailable DEACON KAT Referring Unavailable BREANNA STERN Attending Unavailable WALLY FOLEY Primary Care Unavailable SERENA BREEN Attending Unavailable CRISTHIAN, JAQUAN L Primary Care Unavailable CIARA BELLO Referring Unavailable WALLY FOLEY Primary Care Unavailable CRISTHIAN, JAQUAN L Primary Care Unavailable CRISTHIAN, JAQUAN L Primary Care Unavailable BERNARDO BRENNER Attending Unava ilable CRISTHIAN, JAQUAN L Primary Care Unavailable BREANNA STERN Attending Unavailable WALLY FOLEY Referring Unavailable CIARA BELLO Attending Unavailable WALLY FOLEY Primary Care Unavailable AGUSTIN VALENTINO Referring Unavailable AGUSTIN ZAMORANO Attending Unavailable CRISTHIAN, JAQUAN Johnson Primary Care Unavailable DEACON KAT Attending Unavailable CRISTHIAN, JAQUAN Johnson Primary Care Unavailable CRISTHIAN, JAQUAN L Primary Care Unavailable VIC RAMOS Attending Unavailable CRISTHIAN, JAQUAN L Primary Care Unavailable SHANNA WOODS Attending Unavailable ROMIE HAIRSTON Admitting Unavailable PARK, WOOSUP M Attending Unavailable GENERIC PROVIDER, NO ASSIGNED PCP Primary Care Unavailable FENOFF, XIOMARA N Attending Unavailable PARK, WOOSUP M Referring Unavailable GENERIC PROVIDER, NO ASSIGNED PCP Primary Care Unavailable PARK, WOOSUP M Attending Unavailable GENERIC PROVIDER, NO ASSIGNED PCP Primary Care Unavailable FENOFF, XIOMARA N Referring Unavailable GENERIC PROVIDER, NO ASSIGNED PCP Primary Care Unavailable PARK, WOOSUP M Admitting Unavailable PARK, WOOSUP M Attending Unavailable GENERIC PROVIDER, NO ASSIGNED PCP Primary Care Unavailable Allergies Allergy Classification Reported Allergen(s) Allergy Type Date of Onset Reaction(s) Facility (5 sources) Codeine And Related Propensity to adverse reactions to drug 07-08-19 14 Other (See Comments), Nausea And Vomiting [facility] (20 sources) Codeine; Translations: [codeine] Drug Allergy 10-04-19 20 GI Upset [facility] (3 sources) Propofol Drug Allergy 06-19-19 Other: See Comments [facility] (20 sources) Adhesive Tape-Silicones; Translations: [ADHESIVE TAPE-SILICONES] Drug Intolerance 02-07-20 20 Intolerance [facility] (2 sources) Morphine And Related Propensity to adverse reactions to drug 07-08-19 14 Other (See Comments), Nausea And Vomiting [facility] (7 sources) Codeine Drug Allergy vomiting [facility] Other (4 sources) Acetaminophen / oxyCODONE Drug Allergy anaphylaxis [employer] Other (20 sources) Non-steroidal anti-inflammator y agent; Translations: [NSAIDS (NON-STEROIDAL ANTI-INFLAMMATOR Y DRUG)] Propensity to adverse reactions to drug 01-30-20 22 Contraindicati on-Medical Surgical [facility] Work Phone: (1 source) Codeine Drug Allergy 07-08-19 14 [facility] (1 source) Anastia Drug allergy (disorder) [facility] (6 sources) Non-steroidal anti-inflammator y agent; Translations: [NSAIDs] Drug allergy Unknown (qualifier value) [facility] (1 source) Codeine Drug Allergy 02-14-20 [facility] Medications Current Medications Medication Drug Class(es) Dates Sig (Normalized) Sig (Original) minipill Birthcontrol (2 sources) Start: 03-07-2018 minipill Birthcontrol minipill Birthcontrol, Daily Start Date: 03/07/18 Status: Ordered acetaminophen 300 mg / codeine phosphate 15 mg oral tablet (5 sources) Opioid Agonist Start: 05-05-2022 acetaminophen-codei ne 300 mg-15 mg oral tablet 1 tab(s), Oral, BID, 30 tab(s), Refill(s) 0, [id number], 167.2, cm, 05/05/22 13:30:00 EDT, Height/Length Dosing, 84.5, kg, 05/05/22 13:30:00 EDT, Weight Dosing Start Date: 05/05/22 Status: Ordered Start: 2021 take 1 tablet by robinson th every six hours Acetaminophen-Codeine #3 300-30 MG 1 tablet as needed Orally every 6 hrs for 4 days Mar, Active acetaminophen 325 mg / HYDROcodone bitartrate 5 mg oral tablet (7 sources) Opioid Agonist Start: 07-02-2020 hydroCODone-ac etaminophen (NORCO) 5-325 MG per tablet 2 tablet Start: 07-02-2020 End: 06-02-2021 take 1 tablet by mouth every six hours as needed hydroCODone-acetaminophen 5-325 MG table t Indications: Complex ovarian cyst , Uterine leiomyoma, unspecified location Take 1 tablet by mouth every 6 hours as needed for up to 4 days. 12 tablet 0 07/02/2020 06/02/2021 Discontinued (Therapy completed) Start: 04-10-2020 End: 02-13-2023 take 1 tablet by mouth every four to six hours Hydrocodone-Acetaminophen Discontinued 1 TAB PO EVERY 4-6 HOURS 12 3 April 10, 2020 February 13, 2023 1:59pm Start: 01-30-2020 End: 07-02-2020 take 1 tablet by mouth every four hours as needed hydroCODone-acetaminophen 5-325 MG table t Indications: Complex ovarian cyst , Uterine leiomyoma, unspecified location Take 1 tablet by mouth every 4 hours as needed for up to 4 days. 12 tablet 0 07/02/2020 07/02/2020 Discontinued (Reorder) acetaminophen 325 mg / oxyCODONE hydrochloride 5 mg oral tablet (8 sources) Opioid Agonist Start: 02-13-2023 take 1 tablet by mouth once daily Oxycodone-Acetaminophen (Percocet) 5-325 mg tablet Active 1 TAB PO Daily 2 February 13, 2023 Start: 10-19-2022 End: 10-22-2022 Percocet 5 mg-325 mg oral ta blet 1 tab(s), Oral, q6hr for 3 day(s), 10 tab(s), Refill(s) 0, [id number], 168, cm, 10/19/22 8:44:00 EDT, Height/Length Dosing, 85.6, kg, 10/19/22 8:44:00 EDT, Weight Dosing Start Date: 10/19/22 Stop Date: 10/22/22 Status: Ordered Start: 06-07-2022 acetaminophen- oxycodone 325 mg-5 mg Tab 1 tab(s), Oral, q4hr for pain, 12 tab(s), Refill(s) 0, [id number], 168, cm, 06/07/22 10:23:00 EDT, Height/Length Dosing, 83, kg, 06/07/22 10:23:00 EDT, Weight Dosing Start Date: 06/07/22 Status: Ordered acyclovir 400 mg oral tablet (2 sources) Herpesvirus Nucleoside Analog DNA Polymerase Inhibitor, Herpes Simplex Virus Nucleoside Analog DNA Polymerase Inhibitor, Herpes Zoster Virus Nucleoside Analog DNA Polymerase Inhibitor Start: 06-17-2022 End: 07-01-2022 take 1 tablet by mouth twice daily acyclovir 400 mg Tab 400 mg = 1 tab(s), Oral, BID, X 14 day(s), # 28 tab(s), Refills(s) 0, Pharmacy: [id number], 168, cm, 06/17/22 10:54:00 EDT, Height/Length Dosing, 83.1, kg, 06/17/22 10:54:00 EDT, Weight Dosing Start Date: 06/17/22 Stop Date: 07/01/22 Status: Ordered Start: 06-16-2022 End: 06-23-2022 take 1 tablet by mouth five times daily acyclovir (ZOVIRAX) 800 mg tablet Take 1 tablet by mouth five times daily for 7 days. 35 tablet 0 06/16/2022 06/23/2022 Active Comment on above: Take 1 tablet by robinson five times daily for 7 days. [id number] 200 actuat albuterol 0.09 mg/actuat metered dose inhaler (20 sources) beta2-Adrenergic Agonist Start: 02-13-2023 take 1 puff(s) by inhalation every six hours Albuterol Sulfate Active 2 PUFF INHALATION Q6H February 13, 2023 12:00am Start: 03-31-2021 take 2 puff(s) by in halation every four hours as needed Albuterol Sulfate HFA 108 (90 Base) MCG/ACT 2 puffs as needed Inhalation every 4 hrs Mar, Active Start: 03-31-2021 take 2 puff(s) by in halation every four hours as needed Albuterol Sulfate HFA 108 (90 Base) MCG/ACT 2 puffs as needed Inhalation every 4 hrs Mar, Active take 2 puff(s) by in halation every four hours as needed for wheezing albuterol HFA (PROVENTIL HFA, VENTOLIN HFA) 90 mcg/actuation inhaler Inhale 2 Puffs as instructed every 4 hours as needed for wheezing/shortness of breath. 0 Active End: 12-08-2022 ALBUTEROL INHALATION Inhale as instructed. 0 12/08/2022 Discontinued (Erroneous entry) ALBUTEROL INHALA TION Inhale as instructed. 0 Suspended ALBUTEROL INHALA TION Inhale as instructed. 0 Active Comment on above: Inhale as instructed . Inhale 2 Puffs as in structed every 4 hours as needed for wheezing/shortness of breath. Albuterol (Eqv-Ventolin HFA) 90 mcg/inh inhalation aerosol (1 source) Start: take 2 puff(s) by inhalation every six hours Albuterol (Eqv-Ventolin HFA) 90 mcg/inh inhalation aerosol 2 puff(s), Inhalation, q6hr, 18 gm, Refill(s) 0, [id number], 168, cm, 12/29/22 15:01:00 EST, Height/Length Dosing, 83.8, kg, 12/29/22 15:01:00 EST, Weight Dosing Start Date: 12/30/22 Status: Ordered amitriptyline hydrochloride 10 mg oral tablet (1 source) Tricyclic Antidepressant Start: End: take 1 tablet by mouth once daily at bedtime amitriptyline (ELAVIL) 10 mg tablet Take 1 tablet by mouth daily at bedtime. 30 tablet 0 11/08/2022 12/08/2022 Active Comment on above: Take 1 tablet by robinson daily at bedtime. azithromycin 250 mg oral tablet (1 source) Macrolide Antimicrobial Start: End: azithromycin 250 mg Tab = 1 packet(s), Oral, As Directed, as directed on package labeling, X 5 day(s), # 6 tab(s), Refills(s) 0, Pharmacy: [id number], 168, cm, 12/29/22 15:01:00 EST, Height/Length Dosing, 83.8, kg, 12/29/22 15:01:00 EST, Weight Dosing Start Date: 12/29/22 Stop Date: 01/03/23 Status: Ordered baclofen 5 mg oral tablet (8 sources) gamma-Aminobutyric Acid-ergic Agonist Start: End: take 2 tablets by mouth three times daily as needed, then take 1 tablet by mouth three times daily as needed, then take 1 tablet by mouth twice daily as needed, then take 1 tablet by mouth once daily as needed baclofen 5 mg tablet Take 2 tablets by mouth three times a day as needed for 14 days, THEN 1 tablet three times a day as needed for 7 days, THEN 1 tablet two times a day as needed for 7 days, THEN 1 tablet once daily as needed for up to 7 days. 126 tablet 0 12/09/2022 01/13/2023 Active Comment on above: Take 2 tablets by mo [facility] three times a day as needed for 14 days, THEN 1 tablet three times a day as needed for 7 days, THEN 1 tablet two times a day as needed for 7 days, THEN 1 tablet once daily as needed for up to 7 days. benzonatate 200 mg oral capsule (1 source) Non-narcotic Antitussive Start: End: take 1 capsule by mouth three times daily benzonatate 200 mg oral capsule 200 mg = 1 cap(s), Oral, TID, X 7 day(s), # 21 cap(s), Refills(s) 0, Pharmacy: [id number], 168, cm, 12/29/22 15:01:00 EST, Height/Length Dosing, 83.8, kg, 12/29/22 15:01:00 EST, Weight Dosing Start Date: 12/29/22 Stop Date: 01/05/23 Status: Ordered Blood Glucose Monitoring Suppl Supplies (2 sources) Start: Blood Glucose Monitoring Suppl Supplies as directed SQ bid for 30 day(s) Aug, Active Blood Glucose Monitoring Suppl w/Device (2 sources) Blood Glucose Monitoring Suppl w/Device as directed for 30 day(s) Active busPIRone hydrochloride 15 mg oral tablet (20 sources) Start: take 1 tablet by mouth twice daily Buspirone (Buspar) 15 mg Tablet Active 15 MG PO Twice daily February 13, 2023 12:00am Start: 11-03-2022 End: 05-09-2023 take 1 tablet by mouth twice daily busPIRone (BUSPAR) 10 mg tablet Indications: Generalized anxiety disorder Take 1 tablet by mouth twice daily. 180 tablet 1 11/10/2022 05/09/2023 Active Start: 10-29-2022 busPIRone (BUS PAR) 10 mg tablet Indications: Generalized anxiety disorder Take 5 mg (half tablet) twice daily for three days, then increase to 10 mg (full tablet) in the morning and 5 mg in the afternoon, then increase to 10 mg twice daily from there on 60 tablet 2 10/29/2022 Suspended Comment on above: Take 5 mg (half tabl et) twice daily for three days, then increase to 10 mg (full tablet) in the morning and 5 mg in the afternoon, then increase to 10 mg twice daily from there on Take 1 tablet by robinson th twice daily. Calcium (7 sources) Phosphate Binder, Calcium Calciu m Active ciprofloxacin 500 mg oral tablet (1 source) Quinolone Antimicrobial Start: 06-17-2022 End: 06-27-2022 take 1 tablet by mouth every twelve hours ciprofloxacin 500 mg Tab 500 mg = 1 tab(s), Oral, q12hr, X 10 day(s), # 20 tab(s), Refills(s) 0, Pharmacy: [id number], 168, cm, 06/17/22 10:54:00 EDT, Height/Length Dosing, 83.1, kg, 06/17/22 10:54:00 EDT, Weight Dosing Start Date: 06/17/22 Stop Date: 06/27/22 Status: Ordered clindamycin 150 mg oral capsule (2 sources) Lincosamide Antibacterial Start: 08-30-2021 End: 09-06-2021 clindamycin (CLEOCIN) 150 MG capsule Take 3 capsules by mouth in the morning and 3 capsules at noon and 3 capsules before bedtime. Do all this for 7 days. 63 capsule 0 08/30/2021 09/06/2021 Active Start: 08-30-2021 End: 08-30-2021 clindamycin (CLEOCIN) capsul e 450 mg cyclobenzaprine hydrochloride 10 mg oral tablet (1 source) Muscle Relaxant Start: 10-31-2022 End: 11-07-2022 take 1 tablet by mouth three times daily as needed for muscle spasms cyclobenzaprine (FLEXERIL) 10 MG tablet Take 1 tablet by mouth 3 times daily as needed for Muscle spasms 21 tablet 0 10/31/2022 11/07/2022 Active dicyclomine hydrochloride 10 mg oral capsule (7 sources) Anticholinergic Start: 06-05-2022 End: 06-15-2022 take 1 capsule by mouth four times daily Bentyl 10 mg Cap 10 mg = 1 cap(s), Oral, QID, X 10 day(s), # 40 cap(s), Refills(s) 0, Pharmacy: [id number], 167.2, cm, 05/05/22 13:30:00 EDT, Height/Length Dosing, 84.5, kg, 05/05/22 13:30:00 EDT, Weight Dosing Start Date: 06/05/22 Stop Date: 06/15/22 Status: Ordered Start: 12-20-[address] [facility] four times daily Bentyl 10 mg Cap 20 mg = 2 cap(s), Oral, QID, # 20 cap(s), Refills(s) 0, Pharmacy: [id number], 167, cm, 12/20/20 9:30:00 EDT, Height/Length Dosing, 90, kg, 12/20/20 9:30:00 EDT, Weight Dosing Start Date: 12/20/20 Status: Ordered Start: 07-02-2020 End: 07-02-2020 dicyclomine (BENTYL) injecti on 20 mg doxycycline hyclate 100 mg oral capsule (9 sources) Tetracycline-class Drug Start: 05-29-2022 take 1 capsule by mouth twice daily doxycycline hyclate 100 mg Cap 100 mg = 1 cap(s), Oral, BID, # 20 cap(s), Refills(s) 0, [id number], 167.2, cm, 05/05/22 13:30:00 EDT, Height/Length Dosing, 84.5, kg, 05/05/22 13:30:00 EDT, Weight Dosing Start Date: 05/29/22 Status: Ordered Start: 03-31-2021 take 1 capsule by [facility] every twelve hours Doxycycline Monohydrate 100 MG 1 capsule Orally every 12 hrs for 7 days Mar, Active DULoxetine 60 mg oral capsule (15 sources) Serotonin and Norepinephrine Reuptake Inhibitor Start: 01-16-2021 take 60 mg by mouth twice daily Cymbalta 60 mg, Oral, BID, Refills(s) 0 Start Date: 01/16/21 Status: Ordered Start: 10-14-2019 take 1 capsule by [facility] every twelve hours DULoxetine HCl 60 MG 1 capsule Orally Twice a day for 90 days Sep, Active take 1 capsule by [facility] twice daily DULoxetine (CYMBALTA) 30 MG extended release capsule Take 30 mg by mouth 2 times daily 0 Active End: 06-02-2021 DULoxetine (Cymbalta) [address] Particles capsule DR 2 capsules 0 06/02/2021 Discontinued (Therapy completed) escitalopram 20 mg oral tablet (20 sources) Serotonin Reuptake Inhibitor Start: 09-16-2022 End: 04-11-2023 take 20 mg by mouth once daily Escitalopram Oxalate Active 20 MG PO Daily February 13, 2023 12:00am Start: 05-05-2022 End: 09-12-2022 take 1 tablet by mouth once daily escitalopram oxalate (LEXAPRO) 10 mg tablet Indications: Generalized anxiety disorder , Major depressive disorder, recurrent episode, moderate (HCC) Take 1 tablet by mouth once daily. 90 tablet 0 06/14/2022 09/12/2022 Active Start: 05-05-2022 End: 09-12-2022 take 1 tablet by mouth once daily escitalopram oxalate (LEXAPRO) 5 mg tablet Indications: Generalized anxiety disorder , Major depressive disorder, recurrent episode, moderate (HCC) Take 1 tablet by mouth once daily. Take with 10 mg tablet. 90 tablet 0 06/14/2022 09/12/2022 Active Start: 12-17-2021 take 1 tablet by [facility] once daily escitalopram oxalate (LEXAPRO) 10 mg tablet Indications: Generalized anxiety disorder , Major depressive disorder, recurrent episode, moderate (HCC) TAKE 1 TABLET BY MOUTH EVERY DAY 90 tablet 1 12/17/2021 Active Start: 09-09-2021 End: 04-04-2022 take 1 tablet by mouth once daily Lexapro 5 mg oral tablet 5 mg = 1 tab(s), Oral, Daily, Refills(s) 0 Start Date: 05/05/22 Status: Ordered Start: 09-09-2021 take 1 tablet by [facility] once daily escitalopram oxalate (LEXAPRO) 10 mg tablet Indications: Generalized anxiety disorder , Major depressive disorder, recurrent episode, moderate (HCC) Take 1 tablet by mouth once daily. 30 tablet 3 09/09/2021 Active Start: 07-04-2021 take 1 tablet by [facility] once daily escitalopram oxalate (LEXAPRO) 10 mg tablet Indications: Generalized anxiety disorder , Major depressive disorder, recurrent episode, moderate (HCC) Take 1 tablet by mouth once daily. 30 tablet 3 07/04/2021 Active Start: 06-04-2021 take 1 tablet by [facility] once daily escitalopram oxalate (LEXAPRO) 10 mg tablet Indications: Generalized anxiety disorder , Major depressive disorder, recurrent episode, moderate (HCC) Take 1 tablet by mouth once daily. 30 tablet 3 06/04/2021 Active Comment on above: Take 1 tablet by [facility] once daily. Take 1 tablet by [facility] once daily. Take with 10 mg tablet. TAKE 1 TABLET BY [facility] EVERY DAY Etonogestrel (7 sources) Progestin Nexplanon Active Fluticasone-Salmeterol 100-50 MCG/DOSE (2 sources) Start: 03-31-2021 take 1 puff(s) by inhalation twice daily Fluticasone-Salmeterol 100-50 MCG/DOSE 1 puff Inhalation Twice a day for 30 day(s) Mar, Active gabapentin 100 mg oral capsule (17 sources) Anti-epi leptic Agent Start: 01-08-2023 End: 01-05-2024 take 1 tablet by mouth twice daily, then take 2 tablets by mouth twice daily, then take 2 tablets by mouth three times daily gabapentin (NEURONTIN) 100 mg capsule Indications: Median arcuate ligament syndrome (HCC) , Neuralgia and neuritis take 1 tab PO BID x 7 days, then increase to 2 tabs PO BID x 7 days, then increase to 2 tabs PO TID if tolerated. 180 capsule 5 01/08/2023 01/05/2024 Active Start: 01-20-2021 take 1 capsule by [facility] once daily, then take 1 capsule by mouth twice daily, then take 1 capsule by mouth three times daily gabapentin 300 mg Cap See Instructions, 1 cap(s) Oral daily x 1 day, 1 tab BID x 1 day, then 1 tab TID thereafter., # 90 cap(s), Refills(s) 0, Pharmacy: [facility]/pharmacy #[id number], 167, cm, 01/16/21 13:32:00 EST, Height/Length Dosing, 91.9, kg, 01/16/21 13:32:00 EST, Weight Dosing Start Date: 01/20/21 Status: Ordered Gabapentin Activ e Comment on above: take 1 tab PO BID x 7 days, then increase to 2 tabs PO BID x 7 days, then increase to 2 tabs PO TID if tolerated. levothyroxine sodium 0.1 mg oral tablet (20 sources) l-Thyroxine Start: take 100 ug by mouth once daily Levothyroxine Active 100 MCG PO Daily February 13, 2023 12:00am Start: 10-05-2022 take 1 tablet by [facility] once daily levothyroxine 100 mcg (0.1 mg) Tab 100 mcg = 1 tab(s), Oral, Daily, # 30 tab(s), Refills(s) 1, Pharmacy: [id number], 168, cm, 07/29/22 8:44:00 EDT, Height/Length Dosing, 81, kg, 07/29/22 8:44:00 EDT, Weight Dosing Start Date: 10/05/22 Status: Ordered Start: 07-22-2022 take 1 tablet by [facility] once daily levothyroxine 125 mcg (0.125 mg) Tab See Instructions, TAKE 1 TABLET BY MOUTH EVERY DAY, # 30 tab(s), Refills(s) 2, Pharmacy: [facility] [id number], 168, cm, 07/20/22 10:48:00 EDT, Height/Length Dosing, 81.1, kg, 07/20/22 10:48:00 EDT, Weight Dosing Start Date: 07/22/22 Status: Ordered Start: 04-23-2022 take 1 tablet by [facility] once daily levothyroxine 125 mcg (0.125 mg) Tab 125 mcg = 1 tab(s), Oral, Daily, # 90 tab(s), Refills(s) 0, Pharmacy: [id number], 167.6, cm, 04/15/21 22:31:00 EST, Height/Length Dosing, 93.2, kg, 04/15/21 22:31:00 EST, Weight Dosing Start Date: 04/23/22 Status: Ordered Start: 04-07-2021 take 1 tablet by [facility] once daily levothyroxine (SYNTHROID) 100 mcg tablet Indications: Hypothyroidism, unspecified type Take 1 tablet by mouth once daily. 90 tablet 3 04/07/2021 Active Start: 03-04-2018 take 75 ug by mouth once daily levothyroxine 75 mcg, Oral, Daily, Refills(s) 0, Thyroid Start Date: 03/04/18 Status: Ordered take 1 tablet by [facility] once daily levothyroxine (SYNTHROID) 75 MCG tablet Take 1 tablet by mouth Daily 0 Active Levothyroxine So dium Active Comment on above: Take 1 tablet by [facility] once daily. linaclotide 0.145 mg oral capsule (20 sources) Guanylate Cyclase-C Agonist Start: 3 End: 3 take 1 capsule by mouth once daily Linaclotide (Linzess) 145 mcg capsule Active 145 MCG PO Daily February 13, 2023 12:00am Comment on above: Take 1 capsule by [facility] DAILY (6 AM). Take 1 capsule by [facility] daily at 6 am. liothyronine sodium 0.005 mg oral tablet (20 sources) l-Triiodothyronine Start: 3 take 5 ug by mouth once daily Liothyronine Active 5 MCG PO Daily February 13, 2023 12:00am Start: 11-25-2022 take 1 tablet by [facility] once daily liothyronine 5 mcg Tab 5 mcg, Oral, Daily, # 90 tab(s), Refills(s) 3, Pharmacy: [facility]/pharmacy #[id number], 168, cm, 11/25/22 11:03:00 EDT, Height/Length Dosing, 82.5, kg, 11/25/22 11:03:00 EDT, Weight Dosing Start Date: 11/25/22 Status: Ordered Start: 05-21-2022 take 1 tablet by [facility] once daily liothyronine 5 mcg Tab 5 mcg, Oral, Daily, # 90 tab(s), Refills(s) 1, Pharmacy: [facility]/pharmacy #[id number], 167.2, cm, 05/05/22 13:30:00 EDT, Height/Length Dosing, 84.5, kg, 05/05/22 13:30:00 EDT, Weight Dosing Start Date: 05/21/22 Status: Ordered Start: 09-11-2019 take 1 tablet by [facility] once daily liothyronine (CYTOMEL) 5 mcg tablet Take 5 mcg by mouth once daily. 0 09/11/2019 Active take 1 tablet by [facility] every twenty-four hours Liothyronine Sodium 5 MCG 1 tablet on an empty stomach Orally Once a day for 90 day(s) Active Liothyronine Sod ium (CYTOMEL PO) Take by mouth. 0 Active Comment on above: Take 5 mcg by mouth once daily. Magnesium (7 sources) Magnesium Active meclizine hydrochloride 12.5 mg oral tablet (7 sources) Antiemetic Start: 06-10-2022 take 1 tablet by mouth three times daily as needed for dizziness Antivert 12.5 mg Tab 12.5 mg = 1 tab(s), Oral, TID, PRN for dizziness, # 30 tab(s), Refills(s) 0, Pharmacy: [facility]/pharmacy #[id number], 168, cm, 06/10/22 10:57:00 EDT, Height/Length Dosing, 83.7, kg, 06/10/22 10:57:00 EDT, Weight Dosing Start Date: 06/10/22 Status: Ordered metFORMIN hydrochloride 1000 mg oral tablet (6 sources) Biguanide Start: 03-04-2018 take 1000 mg by mouth twice daily metformin 1,000 mg, Oral, BID, Refills(s) 0, Blood glucose Start Date: 03/04/18 Status: Ordered take 2 tablets by mo ut twice daily at mealtime metformin 500 MG Tab tablet Take 1,000 m g by mouth 2 times daily with meals. 0 Active methylPREDNISolone 4 mg oral tablet (5 sources) Corticosteroid Start: 12-29-2022 End: 01-04-2023 Medrol 4 mg Tab = 1 packet(s), Oral, As Directed, as directed on package labeling, X 6 day(s), # 21 tab(s), Refills(s) 0, Pharmacy: [id number], 168, cm, 12/29/22 15:01:00 EST, Height/Length Dosing, 83.8, kg, 12/29/22 15:01:00 EST, Weight Dosing Start Date: 12/29/22 Stop Date: 01/04/23 Status: Ordered Start: 07-20-2022 End: 07-26-2022 Medrol 4 mg Tab = 1 packet(s ), Oral, As Directed, as directed on package labeling, X 6 day(s), # 21 tab(s), Refills(s) 0, Pharmacy: [facility]/pharmacy #[id number], 168, cm, 07/20/22 10:48:00 EDT, Height/Length Dosing, 81.1, kg, 07/20/22 10:48:00 EDT, Weight Dosing Start Date: 07/20/22 Stop Date: 07/26/22 Status: Ordered Start: 08-17-2021 methylPREDNISo lone 4 MG as directed Orally Once a day for 6 days Aug, Active metoclopramide 5 mg oral tablet (20 sources) Dopamine-2 Receptor Antagonist Start: 11-02-2022 End: 11-02-2022 Metoclopramide (REGLAN) injection 10 mg Start: 10-28-2022 End: 11-27-2022 take 1 tablet by mouth at bedtime metoclopramide HCl (REGLAN) 5 mg tablet Take 1 tablet by mouth before meals and at bedtime. 120 tablet 0 10/28/2022 11/27/2022 Active Comment on above: Take 1 tablet by [facility] before meals and at bedtime. Take 5 mg by mouth b efore meals and at bedtime. Metoprolol & Diet Manage Prod (7 sources) Metoprolol & t Manage Prod Active metroNIDAZOLE 500 mg oral tablet (1 source) Nitroimidazole Antimicrobial Start: 06-17-2022 End: 06-27-2022 take 1 tablet by mouth every eight hours MetroNIDAZOLE 500 mg Tab 500 mg = 1 tab(s), Oral, q8hr, X 10 day(s), # 30 tab(s), Refills(s) 0, Pharmacy: [facility]/pharmacy #[id number], 168, cm, 06/17/22 10:54:00 EDT, Height/Length Dosing, 83.1, kg, 06/17/22 10:54:00 EDT, Weight Dosing Start Date: 06/17/22 Stop Date: 06/27/22 Status: Ordered mirtazapine 15 mg oral tablet (20 sources) Start: 09-09-2021 End: 05-09-2023 take 15 mg by mouth once daily Mirtazapine Active 15 MG PO Daily February 13, 2023 12:00am Start: 06-27-2021 take 1 tablet by [facility] once daily at bedtime mirtazapine (REMERON) 30 mg tablet Indications: Generalized anxiety disorder TAKE 1 TABLET BY MOUTH DAILY AT BEDTIME 30 tablet 2 06/27/2021 Active Start: 03-24-2021 take 1 tablet by [facility] once daily at bedtime mirtazapine (REMERON) 30 mg tablet Indications: Generalized anxiety disorder Take 1 tablet by mouth daily at bedtime. 30 tablet 2 03/24/2021 Active Remeron Active Comment on above: Take 1 tablet by [facility] daily at bedtime. TAKE 1 TABLET BY [facility] DAILY AT BEDTIME Multi Vitamins oral tablet (4 sources) Start: 05-05-2022 Multi Vitamins oral tablet 1 tab(s), Oral, Daily, 30 tab(s), Refill(s) 0 Start Date: 05/05/22 Status: Ordered ondansetron 4 mg oral tablet (20 sources) Serotonin-3 Receptor Antagonist Start: 02-13-2023 take 4 mg by mouth every eight hours Ondansetron Hcl Active 4 MG PO Q8H February 13, 2023 12:00am Start: 11-19-2022 End: 12-19-2022 take 1 tablet by mouth every eight hours as needed ondansetron (ZOFRAN) 4 mg tablet Take 1 tablet by mouth every 8 hours as needed for nausea/vomiting. 40 tablet 1 11/19/2022 12/19/2022 Active Start: 11-02-2022 take 1 tablet by [facility] every eight hours as needed Ondansetron 4 MG Tab Dispersible tablet Take 1 tablet by mouth every 8 hours as needed for Nausea. Place on tongue 10 tablet 0 11/02/2022 Active Start: 11-02-2022 End: 11-02-2022 Ondansetron 4mg/2ml (ZOFRAN) injection 4 mg Start: 10-23-2022 take 1 tablet by [facility] every eight hours as needed for nausea ondansetron (ZOFRAN) 4 MG tablet Take 1 tablet by mouth every 8 hours as needed for Nausea 20 tablet 0 10/23/2022 Active Start: 10-19-2022 take 1 tablet by [facility] every six hours as needed for nausea Zofran 4 mg Tab 4 mg = 1 tab(s), Oral, q6hr, PRN Nausea, Take one tab by mouth every six hours as needed for nausea, # 10 tab(s), Refills(s) 0, Pharmacy: [facility]/pharmacy #[id number], 168, cm, 10/19/22 8:44:00 EDT, Height/Length Dosing, 85.6, kg, 10/19/22 8:44:00 EDT, Weight Dosing Start Date: 10/19/22 Status: Ordered Start: 06-07-2022 take 1 tablet by [facility] every six hours ondansetron 4 mg Dis Tab 4 mg = 1 tab(s), Oral, q6hr, # 12 tab(s), Refills(s) 0, Pharmacy: [facility]/pharmacy #[id number], 168, cm, 06/07/22 10:23:00 EDT, Height/Length Dosing, 83, kg, 06/07/22 10:23:00 EDT, Weight Dosing Start Date: 06/07/22 Status: Ordered Start: 07-27-2021 End: 07-27-2021 ondansetron (ZOFRAN) injecti on 4 mg Start: 12-28-2020 take 1 tablet by [facility] three times daily Zofran ODT 4 mg Tab 4 mg = 1 tab(s), Oral, TID, # 10 tab(s), Refills(s) 0, Pharmacy: [id number], 167, cm, 12/20/20 9:30:00 EDT, Height/Length Dosing, 91.6, kg, 12/28/20 3:26:00 EST, Weight Dosing Start Date: 12/28/20 Status: Ordered Start: 07-02-2020 End: 07-02-2020 ondansetron 4mg/2ml (ZOFRAN) injection 4 mg Start: 07-02-2020 End: 06-02-2021 take 1 tablet by mouth every four hours as needed ondansetron 4 MG Tab Dispersible tablet Take 1 tablet by mouth every [address] on tongue 15 tablet 0 07/02/2020 06/02/2021 Discontinued (Therapy completed) Start: 07-02-2020 End: 07-02-2020 ondansetron 4mg/2ml (ZOFRAN) injection 4 mg Start: 01-30-2020 End: 01-30-2020 ondansetron 4mg/2ml (ZOFRAN) injection 4 mg Start: 01-30-2020 End: 01-30-2020 ondansetron 4mg/2ml (ZOFRAN) injection 4 mg Start: 01-30-2020 End: 06-02-2021 take 1 tablet by mouth every eight hours as needed ondansetron 4 MG Tab Dispersible tablet Take 1 tablet by mouth every 8 hours as needed for Nausea for up to [address] on tongue 12 tablet 0 01/30/2020 06/02/2021 Discontinued (Therapy completed) Comment on above: Take 1 tablet by [facility] every 8 hours as needed for nausea/vomiting. pantoprazole 40 mg delayed release oral tablet (14 sources) Proton Pump Inhibitor Start: take 1 tablet by mouth twice daily Protonix 40 mg Tab-DR 40 mg = 1 tab(s), Oral, BID, # 30 tab(s), Refills(s) 0 Start Date: 01/16/21 Status: Ordered take 40 mg by mouth once daily before breakfast pantoprazole (PROTONIX) 40 mg grps Take 40 mg by mouth daily before breakfast. 0 Active Comment on above: Take 40 mg by mouth daily before breakfast. potassium bicarbonate 25 meq effervescent oral tablet (1 source) Start: 10-24-19 take 1 tablet by mouth once daily potassium bicarbonate (EFFER-K) 25 MEQ disintegrating tablet Take 1 tablet by mouth daily 3 tablet 0 10/23/2022 Active predniSONE 20 mg oral tablet (1 source) Start: 11-01-19 End: 11-06-19 take 2 tablets by mouth once daily predniSONE (DELTASONE) 20 MG tablet Take 2 tablets by mouth daily for 5 days 10 tablet 0 10/31/2022 11/05/2022 Active ProFe (4 sources) Start: 03-04-19 take 180 mg by mouth once daily ProFe 180 mg, Oral, Daily, Refills(s) 0, Prophylaxis Start Date: 03/04/18 Status: Ordered prucalopride 2 mg oral tablet (7 sources) Start: 07-23-19 End: 08-22-19 take 1 tablet by mouth once daily prucalopride (MOTEGRITY) 2 mg tab tablet Take 1 tablet (2 mg) by mouth once daily. 30 tablet 0 07/22/2022 08/21/2022 Active Comment on above: Take 1 tablet (2 mg) by mouth once daily. sertraline 100 mg oral tablet (2 sources) Serotonin Reuptake Inhibitor Start: 03-04-19 take 100 mg by mouth once daily sertraline 100 mg, Oral, Daily, Refills(s) 0, Depression Start Date: 03/04/18 Status: Ordered 1000 ml sodium chloride 9 mg/ml injection (10 sources) Start: 11-27-19 End: 11-27-19 NaCl 0.9% 2,000 mL iv bolus Start: 11-19-2022 End: 11-19-2022 NaCl 0.9% 2,000 mL iv bolus Start: 11-04-2022 End: 11-04-2022 NaCl 0.9% 2,000 mL iv bolus Start: 11-02-2022 End: 11-02-2022 Sodium chloride 0.9% IV solu tion 2,000 mL Start: 07-27-2021 End: 07-27-2021 0.9 % sodium chloride bolus Start: 07-02-2020 End: 07-02-2020 sodium chloride 0.9% IV solu tion 1,000 mL Start: 01-30-2020 End: 01-30-2020 sodium chloride 0.9% IV solu tion 75 mL Start: 01-30-2020 End: 01-30-2020 sodium chloride 0.9% IV solu tion 1,000 mL tamsulosin hydrochloride 0.4 mg oral capsule (1 source) alpha-Adrenergic Blanka Start: 06-17-2022 take 1 capsule by mouth once daily Flomax 0.4 mg Cap 0.4 mg = 1 cap(s), Oral, Daily, # 10 cap(s), Refills(s) 0, Pharmacy: [facility]/pharmacy #[id number], 168, cm, 06/17/22 10:54:00 EDT, Height/Length Dosing, 83.1, kg, 06/17/22 10:54:00 EDT, Weight Dosing Start Date: 06/17/22 Status: Ordered topiramate 100 mg oral tablet (20 sources) Start: 02-13-2023 take 100 mg by mouth twice daily Topiramate Active 100 MG PO Twice daily February 13, 2023 12:00am Start: 07-29-2022 take 1 mg by mouth twice daily Topamax 100 mg Tab mg tab(s), Oral, BID, Refills(s) 0 Start Date: 07/29/22 Status: Ordered Start: 10-14-2019 End: 01-02-2022 take 1 tablet by mouth every twelve hours Topiramate 100 MG 1 tablet Orally twice a day for 90 days Sep, Active Start: 10-14-2019 topiramate 50 MG tablet take 1 tablet by [facility] twice daily topiramate 25 MG tablet Take 25 mg by mouth 2 times daily. 0 Active take 0.5 tablet by m out twice daily topiramate (TOPAMAX) 100 MG tablet Take 0.5 tablets by mouth 2 times daily 0 Active topiramate (TOPA MAX) 100 MG tablet Take 50 mg by mouth 2 times daily 0 Active Comment on above: Take 100 mg by mouth twice daily. traMADol hydrochloride 50 mg oral tablet (18 sources) Opioid Agonist Start: 12-09-2022 End: 12-16-2022 take 1 tablet by mouth every six hours as needed for pain traMADol (ULTRAM) 50 mg tablet Indications: Pain of upper abdomen Take 1 tablet by mouth every 6 hours as needed for pain for up to 7 days. 28 tablet 0 12/09/2022 12/16/2022 Active Start: 11-23-2022 End: 11-26-2022 take 1 tablet by mouth every twelve hours as needed traMADol (ULTRAM) 50 mg tablet Indications: Intractable abdominal pain , Epigastric pain Take 1 tablet by mouth every 12 hours as needed for up to 3 days. 6 tablet 0 11/23/2022 11/26/2022 Active Start: 11-16-2022 take 1 tablet by [facility] every eight hours as needed for pain traMADol (ULTRAM) 50 mg tablet Indications: Post-operative pain Take 1 tablet by mouth every 8 hours as needed for pain. 10 tablet 0 11/16/2022 Suspended Start: 11-08-2022 End: 11-11-2022 take 1 tablet by mouth every six hours as needed for pain traMADol (ULTRAM) 50 mg tablet Indications: Dysfunction of sphincter of Oddi , Pain of upper abdomen Take 1 tablet by mouth every 6 hours as needed for pain for up to 3 days. 10 tablet 0 11/08/2022 11/11/2022 Active Start: 06-26-2022 take 1 tablet by [facility] every twelve hours as needed for pain traMADOL 50 mg Tab 50 mg = 1 tab(s), Oral, q12hr, PRN for pain, # 30 tab(s), Refills(s) 0, Pharmacy: [facility]/pharmacy #[id number], 168, cm, 06/26/22 14:12:00 EDT, Height/Length Dosing, 82.5, kg, 06/26/22 14:12:00 EDT, Weight Dosing Start Date: 06/26/22 Status: Ordered Start: 06-23-2022 End: 09-18-2022 take 1 tablet by mouth every eight hours as needed for pain traMADol (ULTRAM) 50 mg tablet Indications: Chronic bilateral low back pain without sciatica Take 1 tablet by mouth every 8 hours as needed for pain (if pain is there after useage of tylenol/ gabapentin and robaxin). 10 tablet 0 06/23/2022 09/18/2022 Discontinued (Course of therapy completed) Comment on above: Take 1 tablet by [facility] every 8 hours as needed for pain (if pain is there after useage of tylenol/ gabapentin and robaxin). Take 1 tablet by [facility] every 6 hours as needed for pain for up to 3 days. Take 1 tablet by [facility] every 8 hours as needed for pain. Take 1 tablet by [facility] every 12 hours as needed for up to 3 days. Take 1 tablet by [facility] every 6 hours as needed for pain for up to 7 days. Vitamin D (7 sources) Vitamin D Active Completed/Discontinued Medications Medication Drug Class(es) Dates Sig (Normalized) Sig (Original) acetaminophen 500 mg oral tablet (20 sources) Start: 06-23-2022 take 2 tablets by mouth every six hours as needed acetaminophen (TYLENOL) 500 mg tablet Take 2 tablets by mouth every 6 hours as needed for pain or fever (specify). 0 06/23/2022 Active Start: 01-30-2022 End: 02-06-2022 take 2 tablets by mouth every six hours as needed acetaminophen (TYLENOL) 325 mg tablet Take 2 tablets by mouth every 6 hours as needed for headache for up to 7 days. 28 tablet 0 01/30/2022 02/06/2022 Start: 07-09-2021 End: 08-01-2021 take 1 tablet by mouth every six hours as needed acetaminophen (ACETAMINOPHEN EXTRA STRENGTH) 500 mg tablet Take 1 tablet by mouth every 6 hours as needed for pain. 40 tablet 0 07/09/2021 08/01/2021 Discontinued (Course of therapy completed) Comment on above: Take 1 tablet by [facility] every 6 hours as needed for pain. Take 2 tablets by mo uth every 6 hours as needed for headache for up to 7 days. Take 2 tablets by [facility] every 6 hours as needed for pain or fever (specify). 3 ml bupivacaine hydrochloride 5 mg/ml / EPINEPHrine 0.005 mg/ml injection (1 source) alpha-Adrenergic Agonist, beta-Adrenergic Agonist, Catecholamine, Amide Local Anesthetic Start: End: bupivacaine-EPINEPHrin e PF (MARCAINE-w/EPINEPHRIN E) 0.5% [id number] injection 10 mL cholecalciferol 0.05 mg oral tablet (9 sources) Vitamin D Start: End: take 1 tablet by mouth once daily cholecalciferol (VITAMIN D-3) 50 mcg (2,000 unit) tablet Indications: Vitamin D deficiency Take 1 tablet by mouth once daily. 0 11/10/2022 12/08/2022 Discontinued (Erroneous entry) Comment on above: Take 1 tablet by [facility] once daily. 1 ml diphenhydrAMINE hydrochloride 50 mg/ml cartridge (1 source) Histamine-1 Receptor Antagonist Start: End: diphenhydrAMINE (BENADRYL) injection 50 mg docusate sodium 100 mg oral capsule (20 sources) Start: take 1 capsule by mouth three times daily for diarrhea docusate sodium (COLACE) 100 mg capsule Take 1 capsule by mouth three times daily. decrease the dose or stop for diarrhea 90 capsule 0 06/23/2022 Active Comment on above: Take 1 capsule by [facility] three times daily. decrease the dose or stop for diarrhea famotidine 40 mg oral tablet (20 sources) Histamine-2 Receptor Antagonist Start: take 1 tablet by mouth once daily famotidine (PEPCID) 40 mg tablet Take 1 tablet by mouth once daily. 90 tablet 1 04/02/2021 Active Comment on above: Take 1 tablet by [facility] once daily. famotidine (PEPCID) 20 mg in sodium chloride (PF) 10 mL injection (1 source) Start: End: famotidine (PEPCID) 20 mg in sodium chloride (PF) 10 mL injection 2 ml fentaNYL 0.05 mg/ml injection (3 sources) Opioid Agonist Start: 022 End: 022 fentaNYL (SUBLIMAZE) injection 25 mcg Start: 01-30-2020 End: 01-30-2020 fentaNYL (SUBLIMAZE) injecti on 50 mcg fluticasone / salmeterol (13 sources) Corticosteroid, beta2-Adrenergic Agonist Start: 12-30-2022 take 1 puff(s) by inhalation once daily Advair Diskus 100 mcg-50 mcg inhalation powder See Instructions, 60 blister(s), Refill(s) 0, Take 1 puff 2x daily., [facility]/pharmacy #[id number], 168, cm, 12/29/22 15:01:00 EST, Height/Length Dosing, 83.8, kg, 12/29/22 15:01:00 EST, Weight Dosing Start Date: 12/30/22 Status: Ordered Start: 03-31-2021 take 1 puff(s) by in halation every twelve hours fluticasone-salmeterol (ADVAIR DISKUS) 100-50 mcg/dose inhaler Inhale 1 Puff as instructed every 12 hours. 0 03/31/2021 Active Start: 03-31-2021 take 1 puff(s) by in halation twice daily Fluticasone-Salmeterol 100-50 MCG/DOSE 1 puff Inhalation Twice a day for 30 day(s) Mar, Active Comment on above: Inhale 1 Puff as ins tructed every 12 hours. fluticasone propion/salmeterol (ADVAIR HFA INHALATION) (20 sources) End: 12-08-2022 fluticasone propion/salmeterol (ADVAIR HFA INHALATION) Inhale as instructed. 0 12/08/2022 Discontinued fluticasone prop ion/salmeterol (ADVAIR HFA INHALATION) Inhale as instructed. 0 Suspended fluticasone prop ion/salmeterol (ADVAIR HFA INHALATION) Inhale as instructed. 0 Active Comment on above: Inhale as instructed . hydrocortisone 25 mg/ml topical cream (1 source) Corticosteroid Start: 023 End: 023 hydrocortisone 2.5 % cream Apply on affected areas (face and ear only) twice a day. Wednesday through Wednesday until clear. Take a break on the weekends. Avoid armpits, face an groin. Overuse can lead to skin thinning, dyspigmentation, and stretch aguilar. 28 g 3 07/28/2022 07/28/2022 Comment on above: Apply on affected ar eas (face and ear only) twice a day. Wednesday through Wednesday until clear. Take a break on the weekends. Avoid armpits, face an groin. Overuse can lead to skin thinning, dyspigmentation, and stretch aguilar. hydrOXYzine hydrochloride 25 mg oral tablet (20 sources) Antihistamine Start: 023 End: 023 take 1 tablet by mouth twice daily as needed for anxiety hydrOXYzine HCl (ATARAX) 25 mg tablet Indications: Generalized anxiety disorder , Major depressive disorder, recurrent episode, moderate (HCC) TAKE 1 TABLET BY MOUTH TWICE A DAY NEEDED FOR ANXIETY /INSOMNIA 60 tablet 2 09/15/2022 12/08/2022 Discontinued (Erroneous entry) Start: 06-08-2022 take 1 tablet by robinson th twice daily as needed for anxiety hydrOXYzine HCl (ATARAX) 25 mg tablet Indications: Generalized anxiety disorder , Major depressive disorder, recurrent episode, moderate (HCC) TAKE 1 TABLET BY MOUTH TWICE A DAY NEEDED FOR ANXIETY/INSOMNIA 180 tablet 0 06/08/2022 Active Start: 09-09-2021 End: 12-08-2021 take 1 tablet by mouth twice daily as needed for anxiety hydrOXYzine HCl (ATARAX) 25 mg tablet Indications: Generalized anxiety disorder , Major depressive disorder, recurrent episode, moderate (HCC) TAKE 1 TABLET BY MOUTH TWICE A DAY NEEDED FOR ANXIETY/INSOMNIA 180 tablet 0 11/17/2021 Active hydrOXYzine HCl 10 MG 1 tablet as needed Orally at bedtime for 90 days Active Comment on above: Take 1 tablet by robinson th twice daily as needed for anxiety (or insomnia). TAKE 1 TABLET BY ROBINSON TH TWICE A DAY NEEDED FOR ANXIETY/INSOMNIA TAKE 1 TABLET BY ROBINSON TH TWICE A DAY NEEDED FOR ANXIETY /INSOMNIA iohexol (OMNIPAQUE) 350 MG/ML injection 75 mL (1 source) Start: 2019 End: 2019 iohexol (OMNIPAQUE) 350 MG/ML injection 75 mL iopamidol (ISOVUE-370) 76 % injection 75 mL (1 source) Start: 2021 End: 2021 iopamidol (ISOVUE-370) 76 % injection 75 mL iv contrast (will be provided with radiology test) (1 source) Start: 2022 End: 2022 inject 1 dose intravenously once iv contrast (will be provided with radiology test) CTA ABD/PEL - No IV access, insert saline lock prior to the sedation, infusion, injection for imaging exam. Discontinue saline lock post exam. If Pt. has a central line or IVAD, may access for administration according to line specific nursing protocol. Once exam is complete flush line and de-access according to line specific nursing protocol in the CT contrast administration guidelines link. 1 Each 0 12/04/2022 12/05/2022 Comment on above: CTA ABD/PEL - No IV access, insert saline lock prior to the sedation, infusion, injection for imaging exam. Discontinue saline lock post exam. If Pt. has a central line or IVAD, may access for administration according to line specific nursing protocol. Once exam is complete flush line and de-access according to line specific nursing protocol in the CT contrast administration guidelines link. 1 ml ketorolac tromethamine 30 mg/ml cartridge (5 sources) Nonsteroidal Anti-inflammatory Drug, Cyclooxygenase Inhibitor Start: 2022 End: 2022 ketorolac (TORADOL) injection 30 mg Start: 08-30-2021 End: 08-30-2021 ketorolac (TORADOL) injectio n 30 mg Start: 07-02-2020 End: 07-02-2020 ketorolac (TORADOL) injectio n 15 mg Start: 09-07-2019 Toradol per 15 mg Aug, 60 mg labetalol hydrochloride 100 mg oral tablet (3 sources) beta-Adrenergic Blanka End: 06-02-2021 take 1 tablet by mouth twice daily labetalol 100 MG Tab tablet Take 100 mg by mouth 2 times daily. 0 06/02/2021 Discontinued (Therapy completed) magnesium gluconate 500 mg oral tablet (20 sources) magnesium gluconate (MAGONATE) 27 mg (500 mg) tab Take 500 mg by mouth once daily. 0 Active Comment on above: Take 500 mg by mouth once daily. Methocarbamol (20 sources) Muscle Relaxant Start: 11-19-2022 End: 12-06-2022 take 1 tablet by mouth every eight hours as needed methocarbamol 1,000 mg tablet Take 1 tablet by mouth three times a day as needed. 15 tablet 0 11/19/2022 12/06/2022 Discontinued Start: 11-19-2022 take 1 tablet by robinson th every eight hours as needed methocarbamol 1,000 mg tablet Take 1 tablet by mouth three times a day as needed. 15 tablet 0 11/19/2022 Active Start: 02-02-2022 take 1 tablet by robinson th every six hours as needed methocarbamol (ROBAXIN) 500 mg tablet Take 1 tablet by mouth four times daily as needed. 100 tablet 0 02/02/2022 Active Start: 08-01-2021 End: 01-02-2022 take 500-1000 mg by mouth every eight hours as needed methocarbamol (ROBAXIN) 500 mg tablet Take 1-2 tablets by mouth three times daily as needed (for muscle spasms or pain). 40 tablet 0 08/01/2021 01/02/2022 Discontinued (Discontinued by Patient) Start: 07-09-2021 End: 08-01-2021 take 500-1000 mg by mouth every six hours as needed methocarbamol (ROBAXIN) 500 mg tablet Take 1-2 tablets by mouth four times daily as needed (for muscle spasms or pain). 50 tablet 0 07/09/2021 08/01/2021 Discontinued Comment on above: Take 1-2 tablets by mouth four times daily as needed (for muscle spasms or pain). Take 1-2 tablets by mouth three times daily as needed (for muscle spasms or pain). Take 1 tablet by robinson th four times daily as needed. Take 1 tablet by robinson th three times a day as needed. multivitamin tablet (20 sources) End: 12-08-2022 take 1 tablet by mouth once daily multivitamin tablet Take 1 tablet by mouth. Bariatric chewable 2 a day 0 12/08/2022 Discontinued (Erroneous entry) take 1 tablet by mouth once jerome y multivitamin tablet Take 1 tablet by mouth. Bariatric chewable 2 a day 0 Suspended take 1 tablet by mouth once jerome y multivitamin tablet Take 1 tablet by mouth. Bariatric chewable 2 a day 0 Active Comment on above: Take 1 tablet by robinson th. Bariatric chewable 2 a day naproxen 500 mg oral tablet (20 sources) Nonsteroidal Anti-inflammatory Drug Start: 08-02-19 End: 01-03-20 take 1 tablet by mouth every twelve hours as needed naproxen (NAPROSYN) 500 mg tablet Take 1 tablet by mouth twice daily as needed for pain. for pain. Take with food. 60 tablet 0 08/01/2021 01/02/2022 Discontinued (Discontinued by Patient) Comment on above: Take 1 tablet by robinson twice daily as needed for pain. for pain. Take with food. 24 hr NIFEdipine 30 mg extended release oral tablet (10 sources) Dihydropyridine Calcium Channel Blanka Start: 11-10-19 End: 12-10-19 take 1 tablet by mouth once daily NIFEdipine XL (ADALAT CC) 30 mg 24 hr tablet Take 1 tablet by mouth once daily. 30 tablet 0 11/09/2022 12/06/2022 Discontinued (Erroneous entry) Comment on above: Take 1 tablet by robinson once daily. omeprazole 40 mg delayed release oral capsule (20 sources) Proton Pump Inhibitor Start: 11-03-19 End: 12-09-19 omeprazole (PRILOSEC) 40 mg capsule Indications: Gastroesophageal reflux disease, unspecified whether esophagitis present TAKE 1 CAPSULE BY MOUTH NEEDED 30 capsule 0 11/02/2022 12/08/2022 Discontinued (Erroneous entry) Start: 10-19-2022 End: 09-22-2022 take 1 capsule by mouth once daily omeprazole (PRILOSEC) 20 mg capsule Indications: Gastroesophageal reflux disease, unspecified whether esophagitis present Take 1 capsule by mouth once daily. 30 capsule 4 10/19/2022 09/22/2022 Discontinued Start: 10-19-2022 take 1 capsule by mo [facility] once daily omeprazole (PRILOSEC) 20 mg capsule Indications: Gastroesophageal reflux disease, unspecified whether esophagitis present Take 1 capsule by mouth once daily. 30 capsule 4 10/19/2022 Active Start: 06-23-2022 End: 10-18-2022 omeprazole (PRILOSEC) 40 mg capsule Indications: Gastroesophageal reflux disease, unspecified whether esophagitis present Take 1 capsule by mouth as needed. 30 capsule 0 09/18/2022 Active Start: 03-06-2022 End: 06-04-2022 take 1 capsule by mouth twice daily omeprazole (PRILOSEC) 40 mg capsule Indications: S/P bariatric surgery Take 1 capsule by mouth twice daily. 60 capsule 2 03/06/2022 Active Start: 02-03-2022 End: 05-04-2022 take 1 capsule by mouth once daily omeprazole (PRILOSEC) 40 mg capsule Indications: S/P bariatric surgery Take 1 capsule by mouth once daily. 30 capsule 2 02/03/2022 03/06/2022 Discontinued Start: 07-27-2021 take 1 capsule by mo ut twice daily before mealtime omeprazole (PRILOSEC) 20 MG delayed release capsule Take 1 capsule by mouth 2 times daily (before meals) 60 capsule 0 07/27/2021 Active Start: 07-21-2021 End: 08-29-2021 take 1 capsule by mouth twice daily omeprazole (PRILOSEC) 40 mg capsule Take 1 capsule by mouth twice daily. 60 capsule 0 08/22/2021 08/29/2021 Discontinued Start: 01-15-2021 take 1 capsule by mo [facility] twice daily omeprazole (PRILOSEC) 40 mg capsule Take 1 capsule by mouth twice daily. 60 capsule 0 01/15/2021 Active Comment on above: Take 1 capsule by mo ut twice daily. Take 1 capsule by mo [facility] once daily. Take 1 capsule by mo [facility] as needed. TAKE 1 CAPSULE BY MO UT NEEDED oxyCODONE hydrochloride 5 mg oral tablet (12 sources) Opioid Agonist Start: 01-30-2022 End: 03-05-2022 oxyCODONE IR (ROXICODONE) 5 mg immediate release tablet Indications: Postoperative pain Take 1 tablet by mouth every 6 hours as needed for pain for up to 5 doses. 15 tablet 0 02/05/2022 03/05/2022 Discontinued (Course of therapy completed) Start: 03-20-2021 oxyCODONE IR ( ROXICODONE) 5 mg immediate release tablet Indications: Acute post-operative pain Take 1 tablet by mouth every 6 hours as needed for pain for up to 5 doses. 5 tablet 0 03/20/2021 Active Comment on above: [facility] needed for pain for up to 5 doses. polyethylene glycol 3350 42191 mg powder for oral solution (20 sources) Osmotic Laxative Start: 06-23-2022 polyethylene glycol 3350 (MIRALAX) 17 gram/dose powder Take 17 g by mouth twice daily. reduced the dose or stop if you get diarrhea and restart after 48 hours to maintain 'at least' once a day bowel movement. Dissolve dose in 4 - 8 ounces of liquid and take as directed. 507 g 1 06/23/2022 Active Start: 01-30-2022 polyethylene g lycol 3350 (MIRALAX) 17 gram/dose powder Take 17 g by mouth once daily as needed for constipation. Dissolve dose in 4 - 8 ounces of liquid and take as directed. 0 01/30/2022 Active Comment on above: Take 17 g by mouth o nce daily as needed for constipation. Dissolve dose in 4 - 8 ounces of liquid and take as directed. Take 17 g by mouth t wice daily. reduced the dose or stop if you get diarrhea and restart after 48 hours to maintain 'at least' once a day bowel movement. Dissolve dose in 4 - 8 ounces of liquid and take as directed. prochlorperazine 5 mg/ml injectable solution (16 sources) Phenothiazine Start: 3 End: 3 prochlorperazine (COMPAZINE) injection 10 mg Start: 01-30-2022 take 2 tablets by mo [facility] every six hours as needed prochlorperazine (COMPAZINE) 5 mg tablet Take 2 tablets by mouth every 6 hours as needed. 28 tablet 1 01/30/2022 Active Start: 04-10-2020 End: 02-13-2023 take 1 tablet by mouth three times daily Prochlorperazine Maleate (Compazine) 10 mg tablet Discontinued 10 MG PO Three times daily 15 April 10, 2020 12:00am February 13, 2023 1:59pm Comment on above: Take 2 tablets by mo [facility] every 6 hours as needed. promethazine hydrochloride 25 mg oral tablet (20 sources) Phenothiazine Start: 12-10-19 take 1 tablet by mouth every six hours as needed promethazine (PHENERGAN) 25 mg tablet Take 1 tablet by mouth every 6 hours as needed. 45 tablet 0 12/09/2022 Active Start: 11-02-2022 take 1 tablet by robinson th every four hours as needed Promethazine 25 MG tablet Take 1 tablet by mouth every 4 hours as needed (Nausea/Vomiting). 15 tablet 0 11/02/2022 Active Start: 10-20-2022 take 1 tablet by robinson th three times daily promethazine 25 mg Tab 25 mg = 1 tab(s), Oral, TID, # 15 tab(s), Refills(s) 0, Pharmacy: [facility]/pharmacy #[id number], 168, cm, 10/20/22 8:21:00 EDT, Height/Length Dosing, 85.6, kg, 10/20/22 8:21:00 EDT, Weight Dosing Start Date: 10/20/22 Status: Ordered Start: 06-10-2022 take 1 tablet by robinson every four hours promethazine 12.5 mg oral tablet 12.5 mg = 1 tab(s), Oral, q4hr, # 60 tab(s), Refills(s) 0, Pharmacy: [facility]/pharmacy #[id number], 168, cm, 06/10/22 12:37:00 EDT, Height/Length Dosing, 83.7, kg, 06/10/22 12:37:00 EDT, Weight Dosing Start Date: 06/10/22 Status: Ordered Start: 12-20-2020 take 1 tablet by robinson every six hours as needed for nausea promethazine 25 mg Tab 25 mg = 1 tab(s), Oral, q6hr, PRN as needed for nausea/vomiting, # 12 tab(s), Refills(s) 0, Pharmacy: [facility]/pharmacy #[id number], 167, cm, 12/20/20 9:30:00 EDT, Height/Length Dosing, 90, kg, 12/20/20 9:30:00 EDT, Weight Dosing Start Date: 12/20/20 Status: Ordered Comment on above: Take 1 tablet by robinson every 6 hours as needed. 72 hr scopolamine 0.0139 mg/hr transdermal system (9 sources) Anticholinergic Start: 01-31-20 End: 03-05-19 scopolamine (TRANSDERM-SCOP) patch 1.5 mg/72 hr (delivers 1 mg over 3 days) Apply one patch behind the ear at least 4 hours prior to exposure and every 3 days as needed. 3 Patch 0 01/30/2022 03/05/2022 Discontinued (Course of therapy completed) Comment on above: Apply one patch behi nd the ear at least 4 hours prior to exposure and every 3 days as needed. sennosides, longterm 8.6 mg oral tablet (9 sources) Start: 06-24-19 End: 09-23-19 take 2 tablets by mouth once daily at bedtime for diarrhea Senna 8.6 mg tab Take 2 tablets by mouth daily at bedtime. decrease the dose or stop for diarrhea 60 tablet 0 06/23/2022 09/22/2022 Discontinued Comment on above: Take 2 tablets by mo uth daily at bedtime. decrease the dose or stop for diarrhea simethicone 80 mg chewable tablet (9 sources) Start: 06-24-19 End: 09-23-19 take 2 tablets by mouth every six hours as needed simethicone, chewable (MYLICON) 80 mg chewable tablet Take 2 tablets by mouth four times daily as needed. 120 tablet 1 06/23/2022 09/22/2022 Discontinued Comment on above: Take 2 tablets by mo uth four times daily as needed. sucralfate 1000 mg oral tablet (20 sources) Aluminum Complex Start: 10-21-19 End: 01-19-20 take 1 tablet by mouth four times daily sucralfate (CARAFATE) 1 gram tablet Take 1 tablet by mouth four times daily. 120 tablet 2 10/20/2022 12/06/2022 Discontinued (Erroneous entry) Start: 10-19-2022 take 1 g by mouth fo ur times daily Carafate 1 g/10 mL Susp-Oral 1 gram = 10 mL, Oral, QID, # 280 mL, Refills(s) 0, Pharmacy: [facility]/pharmacy #[id number], 168, cm, 10/19/22 8:44:00 EDT, Height/Length Dosing, 85.6, kg, 10/19/22 8:44:00 EDT, Weight Dosing Start Date: 10/19/22 Status: Ordered Start: 01-16-2021 take 1 tablet by robinson four times daily Carafate Tab 1 gm = 1 tab(s), Oral, QID, # 120 tab(s), Refills(s) 0 Start Date: 01/16/21 Status: Ordered Start: 12-25-2020 End: 06-23-2021 take 1 tablet by mouth four times daily sucralfate (CARAFATE) 1 gram tablet Take 1 tablet by mouth four times daily. 360 tablet 1 12/25/2020 06/23/2021 Active Carafate Active Comment on above: Take 1 tablet by robinson th four times daily. triamcinolone acetonide 0.001 mg/mg topical ointment (4 sources) Corticosteroid Start: 07-29-19 End: 08-04-19 triamcinolone acetonide (KENALOG) 0.1 % ointment Apply on affected areas twice a day. Wednesday through Wednesday until clear. Take a break on the weekends. Avoid armpits, face and groin. Overuse can lead to skin thinning, dyspigmentation, and stretch aguilar. 80 g 5 07/28/2022 09/22/2022 Discontinued Comment on above: Apply on affected ar eas twice a day. Wednesday through Wednesday until clear. Take a break on the weekends. Avoid armpits, face and groin. Overuse can lead to skin thinning, dyspigmentation, and stretch aguilar. zinc gluconate 50 mg oral tablet (9 sources) Start: 11-11-19 End: 12-07-19 take 1 tablet by mouth once daily Zinc Gluconate 50 mg tablet Indications: Dietary zinc deficiency Take 1 tablet by mouth once daily. 0 11/10/2022 12/06/2022 Discontinued (Erroneous entry) Comment on above: Take 1 tablet by robinson once daily. Problems Active Problems Problem Classification Problem Date Documented Da te Episodic/Chronic Abdominal pain (20 sources) Lower abdominal pain; Translations: [Right upper quadrant pain] Onset: 0 Resolved: 2 01-31-2020 Episodic Administrative/social admission (16 sources) Patient encounter status; Translations: [Dietary counseling and surveillance] Onset: 3 Episodic Anxiety disorders (20 sources) Posttraumatic stress disorder; Translations: [Reaction to severe stress, unspecified] Onset: 0 11-21-2019 Chronic Anxiety disorders (20 sources) Panic disorder without agoraphobia; Translations: [Panic disorder [episodic paroxysmal anxiety]] Onset: 0 Resolved: 2 04-08-2020 Chronic Asthma (20 sources) Asthma; Translations: [Unspecified asthma, uncomplicated] Onset: 1 Resolved: 2 08-21-2020 Chronic Benign neoplasm of uterus (1 source) Uterine leiomyoma; Translations: [Leiomyoma of uterus, unspecified] Episodic Biliary tract disease (20 sources) Dysfunction of sphincter of Oddi; Translations: [Spasm of sphincter of Oddi] Onset: 3 11-06-2022 Chronic Biliary tract disease (5 sources) Gallstone 07-29-2022 Episodic Chronic obstructive pulmonary disease and bronchiectasis (1 source) Bronchitis 12-29-2022 Episodic Complications of surgical procedures or medical care (2 sources) Post-surgical malabsorption; Translations: [Postsurgical malabsorption, not elsewhere classified] Chronic Conditions associated with dizziness or vertigo (20 sources) Vertigo; Translations: [Dizziness and giddiness] Onset: 0 10-06-2019 Episodic Deficiency and other anemia (20 sources) Anemia; Translations: [Anemia, unspecified] 10-06-2019 Episodic Deficiency and other anemia (7 sources) Iron deficiency anemia; Translations: [Iron deficiency anemia, unspecified] Episodic Disorders of teeth and jaw (1 source) Infection of tooth; Translations: [Periapical abscess without sinus] Episodic Diverticulosis and diverticulitis (1 source) Diverticulosis of intestine, part unspecified, without perforation or abscess without bleeding; Translations: [Diverticulosis] Onset: 3 Chronic Esophageal disorders (20 sources) Gastroesophageal reflux disease; Translations: [Gastro-esophageal reflux disease without esophagitis] Onset: 0 10-06-2019 Chronic Essential hypertension (20 sources) Benign essential hypertension; Translations: [Essential (primary) hypertension] Onset: 0 03-13-2021 Chronic Fluid and electrolyte disorders (19 sources) Hypokalemia; Translations: [Dehydration] Onset: 3 11-04-2022 Episodic Gastritis and duodenitis (1 source) Gastritis; Translations: [Gastritis, unspecified, without bleeding] Onset: 3 Episodic Gastroduodenal ulcer (except hemorrhage) (20 sources) Gastric ulcer; Translations: [Gastric ulcer, unspecified as acute or chronic, without hemorrhage or perforation] Onset: 4 03-13-2021 Chronic Genitourinary symptoms and ill-defined conditions (6 sources) Mixed incontinence; Translations: [Incontinence] Onset: 3 Chronic Headache; including migraine (7 sources) Migraine with aura; Translations: [Migraine with aura, not intractable, without status migrainosus] Chronic Headache; including migraine (1 source) Headache; Translations: [Headache] 01-27-2023 Episodic Inflammation; infection of eye (except that caused by tuberculosis or sexually transmitteddisease) (1 source) Vernal conjunctivitis of bilateral eyes; Translations: [Vernal conjunctivitis] Chronic Joint disorders and dislocations; trauma-related (1 source) Articular cartilage disorder of knee; Translations: [Unspecified internal derangement of right knee] Chronic Malaise and fatigue (7 sources) Fatigue; Translations: [Chronic fatigue, unspecified] Chronic Miscellaneous mental health disorders (15 sources) Primary insomnia; Translations: [Primary insomnia] Onset: 1 Resolved: 1 Chronic Mood disorders (20 sources) Depressive disorder; Translations: [Depression, controlled] Onset: 0 01-03-2020 Chronic Nausea and vomiting (20 sources) Nausea; Translations: [Nausea] Onset: 0 09-25-2019 Episodic Nonspecific chest pain (1 source) Chest pain; Translations: [Chest pain, unspecified] Onset: 3 Episodic Nutritional deficiencies (20 sources) Deficiency of macronutrients; Translations: [Mild protein-calorie malnutrition] Onset: 1 04-08-2020 Chronic Osteoarthritis (6 sources) Degenerative joint disease involving multiple joints; Translations: [Polyosteoarthritis, unspecified] Chronic Other aftercare (1 source) 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; Translations: [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] Onset: 3 Episodic Other aftercare (1 source) Surgical follow-up; Translations: [Encounter for surgical aftercare following surgery on the digestive system] 09-18-2022 Episodic Other circulatory disease (3 sources) Celiac artery compression syndrome; 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] 11-25-2022 Chronic Other circulatory disease (3 sources) Celiac artery compression syndrome; 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)] Onset: 3 Chronic Other connective tissue disease (1 source) Neuropathy; Translations: [Neuralgia and neuritis, unspecified] 01-08-2023 Episodic Other diseases of kidney and ureters (1 source) Acquired renal cyst without neoplastic change; Translations: [Cyst of kidney, acquired] Onset: 3 Episodic Other diseases of kidney and ureters (10 sources) Cyst of kidney 07-29-2022 Episodic Other endocrine disorders (20 sources) Polycystic ovary syndrome; Translations: [Polycystic ovarian syndrome] 01-31-2020 Chronic Other endocrine disorders (8 sources) Polycystic ovaries; Translations: [Polycystic ovarian syndrome] Chronic Other endocrine disorders (2 sources) Reactive hypoglycemia; Translations: [Other hypoglycemia] Chronic Other endocrine disorders (1 source) Other hypoglycemia Onset: 2 Resolved: 2 Chronic Other endocrine disorders (2 sources) Polycystic ovarian syndrome; Translations: [POLYCYSTIC OVARIAN SYNDROME] Onset: 0 Chronic Other eye disorders (1 source) Pain in eye; Translations: [Ocular pain, unspecified eye] Episodic Other gastrointestinal disorders (1 source) Abnormal intestinal absorption; Translations: [Intestinal malabsorption, unspecified] 09-18-2022 Chronic Other gastrointestinal disorders (1 source) Intestinal malabsorption, unspecified; Translations: [Impaired intestinal absorption] Onset: 3 Chronic Other gastrointestinal disorders (16 sources) History of bariatric surgical procedure; Translations: [Bariatric surgery status] Onset: 3 Episodic Other gastrointestinal disorders (3 sources) Esophageal dysphagia; Translations: [Other dysphagia] Episodic Other gastrointestinal disorders (20 sources) History of bypass of stomach; Translations: [Bariatric surgery status] Onset: 3 Episodic Other gastrointestinal disorders (5 sources) Diarrhea, unspecified; Translations: [DIARRHEA UNSPECIFIED] Onset: 3 Episodic Other gastrointestinal disorders (1 source) Diarrhea; Translations: [Diarrhea, unspecified] Onset: 3 Episodic Other liver diseases (1 source) Enzyme level - finding; Translations: [Abnormal levels of other serum enzymes] Onset: 3 Episodic Other nervous system disorders (1 source) Chronic pain syndrome; Translations: [Chronic pain syndrome] 01-11-2023 Chronic Other nervous system disorders (1 source) Other chronic pain; Translations: [Chronic bilateral low back pain without sciatica] Onset: 0 Chronic Other nervous system disorders (3 sources) Postoperative pain ; Translations: [Other acute postprocedural pain] Episodic Other nervous system disorders (2 sources) Other acute postprocedural pain; Translations: [Post-op pain] Onset: 2 Episodic Other non-traumatic joint disorders (1 source) Multiple joint pain; Translations: [Pain in unspecified joint] Episodic Other non-traumatic joint disorders (1 source) Pain in right knee; Translations: [Pain in joint, lower leg] 11-04-2022 Episodic Other nutritional; endocrine; and metabolic disorders (2 sources) Obese class II; Translations: [Obesity, unspecified] Onset: 1 12-09-2020 Chronic Other nutritional; endocrine; and metabolic disorders (20 sources) Obesity; Translations: [Obesity, unspecified] Onset: 0 11-29-2020 Chronic Other nutritional; endocrine; and metabolic disorders (1 source) Obese class I; Translations: [Obesity, unspecified] Chronic Other nutritional; endocrine; and metabolic disorders (9 sources) Body mass index 30+ - obesity 05-05-2022 Chronic Other nutritional; endocrine; and metabolic disorders (9 sources) Metabolic syndrome X 04-22-2022 Chronic Other nutritional; endocrine; and metabolic disorders (1 source) Metabolic syndrome; Translations: [METABOLIC SYNDROME] Onset: 3 Chronic Other nutritional; endocrine; and metabolic disorders (1 source) Hypomagnesemia; Translations: [HYPOMAGNESEMIA] Onset: 3 Chronic Other nutritional; endocrine; and metabolic disorders (2 sources) Obesity, unspecified; Translations: [Class 1 obesity without serious comorbidity with body mass index (BMI) of 33.0 to 33.9 in adult, unspecified obesity type] Onset: 1 Chronic Other nutritional; endocrine; and metabolic disorders (2 sources) Body mass index (BMI) 33.0-33.9, adult; Translations: [Class 1 obesity without serious comorbidity with body mass index (BMI) of 33.0 to 33.9 in adult, unspecified obesity type] Onset: 1 Chronic Other nutritional; endocrine; and metabolic disorders (2 sources) Body weight problem; Translations: [Other symptoms and signs concerning food and fluid intake] Episodic Other nutritional; endocrine; and metabolic disorders (1 source) H/O: endocrine disorder; Translations: [Personal history of other endocrine, nutritional and metabolic disease] Episodic Other nutritional; endocrine; and metabolic disorders (1 source) Body mass index 25-29 - overweight; Translations: [Overweight] 09-28-2022 Episodic Other nutritional; endocrine; and metabolic disorders (20 sources) Feeding problem; Translations: [Feeding difficulties] Onset: 3 12-09-2022 Episodic Other nutritional; endocrine; and metabolic disorders (1 source) Abnormal weight loss; Translations: [Weight loss] Onset: 3 Episodic Other skin disorders (4 sources) Hirsutism; Translations: [Hirsutism] Episodic Other upper respiratory disease (9 sources) Allergic rhinitis 04-22-2022 Chronic Other upper respiratory infections (5 sources) Other chronic sinusitis; Translations: [Chronic sinusitis, unspecified] Onset: 2 Chronic Residual codes; unclassified (20 sources) Obstructive sleep apnea syndrome; Translations: [Obstructive sleep apnea (adult) (pediatric)] 10-06-2019 Chronic Residual codes; unclassified (2 sources) Obstructive sleep apnea (adult) (pediatric); Translations: [RICHAR on CPAP] Onset: 0 Chronic Residual codes; unclassified (2 sources) Dependence on other enabling machines and devices; Translations: [RICHAR on CPAP] Onset: 0 Chronic Residual codes; unclassified (1 source) History of syncope; Translations: [Personal history of other specified conditions] Episodic Residual codes; unclassified (1 source) Edema of face ; Translations: [Localized edema] Episodic Sprains and strains (12 sources) Acetabular labrum tear; Translations: [Other sprain of right hip, initial encounter] Onset: 2 Episodic Superficial injury; contusion (1 source) Contusion of right thumb; Translations: [Contusion of right thumb without damage to nail, initial encounter] Episodic Syncope (2 sources) Syncope and collapse; Translations: [Syncope and collapse] Onset: 3 Episodic Thyroid disorders (20 sources) Hypothyroidism; Translations: [Hypothyroidism, unspecified] Onset: 1 Resolved: 1 04-08-2020 Chronic Unclassified (1 source) NO SHOW Unclassified (1 source) Chronic bilateral low back pain without sciatica; Translations: [Chronic bilateral low back pain without sciatica] Onset: 0 Unclassified (2 sources) refferal Onset: 3 Past or Other Problems Problem Classification Problem Date Documented Da te Episodic/Chronic Abdominal hernia (20 sources) Hernia of anterior abdominal wall; Translations: [Ventral hernia without obstruction or gangrene] Onset: 01-28-2021 Resolved: 01-28-2021 03-13-2021 Episodic Allergic reactions (1 source) Allergic contact dermatitis, unspecified cause Onset: 08-17-2021 Resolved: 08-17-2021 Episodic Calculus of urinary tract (20 sources) Kidney stone; Translations: [Calculus of kidney] Onset: 06-20-2022 06-24-2022 Episodic Deficiency and other anemia (1 source) Other iron deficiency anemias; Translations: [OTHER IRON DEFICIENCY ANEMIAS] Onset: 11-01-2021 Episodic Deficiency and other anemia (1 source) Anemia, unspecified; Translations: [Anemia, unspecified type] Onset: 10-06-2019 Episodic Fever of unknown origin (6 sources) Feeling feverish; Translations: [Fever, unspecified] Onset: 10-04-2021 Episodic Immunizations and screening for infectious disease (4 sources) Encounter for screening for infections with a predominantly sexual mode of transmission; Translations: [ENC SCREEN INFECTIONS SEXL TRANSMS] Onset: 07-30-2021 Episodic Lymphadenitis (3 sources) Lymphadenopathy; Translations: [Enlarged lymph nodes, unspecified] Onset: 07-22-2022 Episodic Malaise and fatigue (20 sources) Malaise and fatigue; Translations: [Other malaise] Onset: 10-06-2019 10-06-2019 Episodic Other connective tissue disease (1 source) Myalgia, unspecified site; Translations: [MYALGIA UNSPECIFIED SITE] Onset: 02-20-2022 Episodic Other eye disorders (1 source) Ocular pain, unspecified eye; Translations: [Pain in eye, unspecified laterality] Onset: 07-28-2022 Episodic Other eye disorders (1 source) Other specified disorders of eye and adnexa; Translations: [Eye irritation] Onset: 07-22-2022 Episodic Other female genital disorders (1 source) Other specified noninflammatory disorders of vagina; Translations: [OTH SPEC NONINFLAMMATORY D/O VAGINA] Onset: 07-31-2021 Episodic Other female genital disorders (20 sources) History of gynecological disorder; Translations: [Personal history of other diseases of the female genital tract] Onset: 06-24-2022 06-24-2022 Episodic Other gastrointestinal disorders (20 sources) Heartburn; Translations: [Heartburn] Onset: 09-25-2019 09-25-2019 Episodic Other gastrointestinal disorders (20 sources) History of sleeve gastrectomy; Translations: [Bariatric surgery status] Onset: 09-05-2020 11-29-2020 Episodic Other gastrointestinal disorders (20 sources) Slow transit constipation; Translations: [Slow transit constipation] Onset: 06-21-2022 06-23-2022 Episodic Other gastrointestinal disorders (7 sources) Bariatric surgery status; Translations: [BARIATRIC SURGERY STATUS] Onset: 03-06-2022 Episodic Other gastrointestinal disorders (20 sources) Constipation; Translations: [Constipation, unspecified] Onset: 06-21-2022 Episodic Other gastrointestinal disorders (20 sources) H/O: GIT by-pass; Translations: [Bariatric surgery status] Onset: 06-24-2022 06-24-2022 Episodic Other gastrointestinal disorders (1 source) Other dysphagia; Translations: [Esophageal dysphagia] Onset: 03-06-2022 Episodic Other gastrointestinal disorders (1 source) Constipation, unspecified; Translations: [Constipation, unspecified constipation type] Onset: 07-22-2022 Episodic Other inflammatory condition of skin (1 source) Pruritus, unspecified; Translations: [Pruritus] Onset: 07-22-2022 Episodic Other lower respiratory disease (1 source) Shortness of breath Onset: 03-31-2021 Resolved: 03-31-2021 Episodic Other nervous system disorders (1 source) Tremor, unspecified Onset: 08-17-2021 Resolved: 08-17-2021 Episodic Other nervous system disorders (20 sources) H/O: respiratory disease; Translations: [Personal history of other diseases of the nervous system and sense organs] Onset: 06-24-2022 06-24-2022 Episodic Other non-traumatic joint disorders (5 sources) Pain in unspecified joint; Translations: [PAIN IN UNSPECIFIED JOINT] Onset: 05-22-2022 Episodic Other nutritional; endocrine; and metabolic disorders (1 source) Personal history of other endocrine, nutritional and metabolic disease; Translations: [History of adrenal insufficiency] Onset: 06-12-2022 Episodic Other screening for suspected conditions (not mental disorders or infectious disease) (20 sources) Imaging of liver abnormal; Translations: [Abnormal findings on diagnostic imaging of liver and biliary tract] Onset: 04-07-2020 04-08-2020 Episodic Other skin disorders (20 sources) Eruption; Translations: [Rash and other nonspecific skin eruption] Onset: 07-22-2022 Episodic Other skin disorders (3 sources) Rash and other nonspecific skin eruption; Translations: [Rash and nonspecific skin eruption] Onset: 07-22-2022 Episodic Ovarian cyst (5 sources) Complex ovarian cyst; Translations: [Other ovarian cyst, unspecified side] Onset: 03-02-2022 Episodic Pneumonia (except that caused by tuberculosis or sexually transmitted disease) (1 source) Pneumonia, unspecified organism Onset: 03-31-2021 Resolved: 03-31-2021 Episodic Residual codes; unclassified (1 source) Other specified postprocedural states; Translations: [OTH SPECIFIED POSTPROCEDURAL STATES] Onset: 07-15-2021 Episodic Residual codes; unclassified (2 sources) Acquired absence of other specified parts of digestive tract; Translations: [History of cholecystectomy] Onset: 11-04-2022 Episodic Residual codes; unclassified (1 source) Localized edema; Translations: [Facial edema] Onset: 07-28-2022 Episodic Residual codes; unclassified (1 source) Personal history of other specified conditions; Translations: [History of syncope] Onset: 06-12-2022 Episodic Spondylosis; intervertebral disc disorders; other back problems (20 sources) Chronic low back pain; Translations: [Chronic bilateral low back pain without sciatica] Onset: 10-06-2019 10-06-2019 Episodic Results Test Name Value Interpretation Reference Range Facility Alanine aminotransferase [En zymatic activity/volume] in Serum or PlasmaOrdered By: Roseline Mejia on 02-13-2023 ALT [Catalytic activity/Vol] 11 U/L 7-52 [facility] Albumin [Mass/volume] in Ser um or Plasma by Bromocresol green (BCG) dye binding methoOrdered By: Roseline Mejia on 02-13-2023 Albumin BCG dye [Mass/Vol] 4.0 g/dL 3.5-5.7 [facility] Alkaline phosphatase [Enzyma tic activity/volume] in Serum or PlasmaOrdered By: Roseline Mejia on 02-13-2023 ALP [Catalytic activity/Vol] 55 U/L 34-104 [facility] Aspartate aminotransferase [ Enzymatic activity/volume] in Serum or PlasmaOrdered By: Roseline Mejia on 02-13-2023 AST [Catalytic activity/Vol] 20 U/L 13-39 [facility] Basic Metabolic Panelon 01-17 Anion gap [Moles/Vol] 10.5 mmol/L Normal 6.0-15.0 [facility] Comment on above: Performed By: #### H EPATIC, BMP, LIPASE, CBC #### [facility] [address] [place] [address] [place] Calcium [Mass/Vol] 8.8 mg/dL Normal 8.6-10.3 [facility] Comment on above: Performed By: #### H EPATIC, BMP, LIPASE, CBC #### [facility] [address] [place] [address] [place] Chloride [Moles/Vol] 109 mmol/L High 98-107 [facility] Comment on above: Performed By: #### H EPATIC, BMP, LIPASE, CBC #### [facility] [address] [place] [id number] [place] CO2 [Moles/Vol] 21.2 mmol/L Normal 21.0-31.0 [facility] Comment on above: Performed By: #### H EPATIC, BMP, LIPASE, CBC #### [facility] [address] [place] [id number] [place] Creatinine [Mass/Vol] 0.73 mg/dL Normal 0.60-1.20 [facility] Comment on above: Performed By: #### H EPATIC, BMP, LIPASE, CBC #### [facility] [address] Creatinine Clr Calc Pharmacy 119.02 [facility] Comment on above: Performed By: #### H EPATIC, BMP, LIPASE, CBC #### [facility] [address] [place] [address] [place] GFR/1.73 sq M.predicted MDRD (S/P/Bld) [Vol rate/Area] mL/min/{1.73_m2} [facility] Comment on above: Performed By: #### H EPATIC, BMP, LIPASE, CBC #### [facility] [address] Glucose [Mass/Vol] 85 mg/dL Normal 70-100 [facility] Comment on above: Result Comment: [facility] Glucose Reference Range is dependent on time and content of last meal. Glucose of more than 200 mg/dL in a nonstressed, ambulatory subject supports the diagnosis of Diabetes Mellitus. ADA recommended reference range Performed By: #### H EPATIC, BMP, LIPASE, CBC #### [facility] [address] Potassium [Moles/Vol] 3.7 mmol/L Normal 3.5-5.1 [facility] Comment on above: Performed By: #### H EPATIC, BMP, LIPASE, CBC #### [facility] [address] Sodium [Moles/Vol] 137 mmol/L Normal 136-145 [facility] Comment on above: Performed By: #### H EPATIC, BMP, LIPASE, CBC #### [facility] [address] Urea nitrogen [Mass/Vol] 10 mg/dL Normal 7-25 [facility] Comment on above: Performed By: #### H EPATIC, BMP, LIPASE, CBC #### [facility] [address] Basophils Auto (Bld) [#/Vol] Ordered By: Roseline Mejia on 02-13-2023 Basophils (Bld) [#/Vol] 0.1 10*3/uL 0.0-0.2 [facility] Basophils/100 WBC Auto (Bld) Ordered By: Roseline Mejia on 02-13-2023 Basophils/100 WBC (Bld) 1.2 % . [facility] Bilirubin Test strip Ql (U)O rdered By: Roseline Mejia on 02-13-2023 Bilirubin Ql (U) Negative Negative [facility] Bilirubin.direct [Mass/volum e] in Serum or PlasmaOrdered By: Roseline Mejia on 02-13-2023 Bilirubin.direct [Mass/Vol] 0.10 mg/dL 0.03-0.18 [facility] Bilirubin.total [Mass/volume ] in Serum or PlasmaOrdered By: Roseline Mejia on 02-13-2023 Bilirubin [Mass/Vol] 0.5 mg/dL 0.3-1.[address] [facility] [address] abdomen pelvis w conon CT abdomen pelvis w con [facility] [place] [address] CT Scan Report Signed Patient: Abbey Garcia MR#: [id number] : 1990 Acct:[id number] Age/Sex: 32 / F ADM Date: 02/13/23 Loc: ER Room: Type: [facility] ER Attending Dr: Copies to: DO Roseline Forman DO, RES Ordering Provider: Roseline Mejia DO, RES Date of Service: 02/13/23 CT/CT abdomen pelvis w con: Abdominal Pain CT Abdomen and Pelvis withcontrast TECHNIQUE: Axial imaging with 2-D reconstruction.90 cc of Isovue-300. The CT exam was performed using one or more the following dose reduction techniques: Automated exposure control, adjustment of the MA and/or Kv according to patient size, or use of the iterative reconstruction technique. COMPARISON: 04/10/2020 History: Epigastric pain. Nausea and vomiting. Diarrhea. LIMITATIONS: None LOWER THORAX Unremarkable LIVER: Redemonstration of multiple hepatic cysts. GALLBLADDER: Cholecystectomy clips identified. BILE DUCTS: No dilatation SPLEEN: Similar splenomegaly. PANCREAS: Unremarkable ADRENAL GLANDS: Unremarkable KIDNEYS:Unremarkable AORTA: No abdominal aortic aneurysm identified. RETROPERITONEUM: No significant retroperitoneal abnormalities identified. MESENTERY:Unremarkable SMALL BOWEL: The small bowel loops are nondistended. The gastric bypass changes APPENDIX: Appendectomy changes identified. COLON: Unremarkable URINARY BLADDER: Urinary bladder is unremarkable. REPRODUCTIVE SYSTEM: Uterus not well seen. PNEUMOPERITONEUM: None PERITONEAL FLUID:None BONY STRUCTURES: Unremarkable ABDOMINAL WALL: Unremarkable CT/CT abdomen pelvis w con IMPRESSION: No acute findings. Nondistended small bowel. Impression dictated by: Jason Soto M.D.02/13/2023 3:42 PM Dictation Location: [place] [address] Transcribed By: [facility] 02/13/23 1542 Dictated By: Jason Soto DO 02/13/23 1537 Signed By: 02/13/23 1542 Normal [facility] Calcium [Mass/volume] in Ser um or PlasmaOrdered By: Roseline Mejia on 02-13-2023 Calcium [Mass/Vol] 8.8 mg/dL 8.6-10.3 [facility] Carbon dioxide, total [Moles /volume] in Serum or PlasmaOrdered By: Roseline Mejia on 02-13-2023 CO2 [Moles/Vol] 21.2 mmol/L 21.0-31.0 [facility] Chloride [Moles/volume] in S elder or PlasmaOrdered By: Roseline Mejia on 02-13-2023 Chloride [Moles/Vol] 109 mmol/L 98-107 [facility] Color Auto (U)Ordered By: Harry Mejia on 02-13-2023 Color (U) Yellow Yellow [facility] Complete Blood Count Auto Di ffon 02-13-2023 Basophils (Bld) [#/Vol] 0.1 10*3/uL Normal 0.0-0.2 [facility] Comment on above: Result Comment: PERF ORMED BY: [facility] [address] [place] [address] PATHOLOGIST [employer] TECHNICIAN BAUTISTA BAKER M.D. Performed By: #### H EPATIC, BMP, LIPASE, CBC #### [address] Basophils/100 WBC (Bld) 1.2 % Normal . [facility] Comment on above: Performed By: #### H EPATIC, BMP, LIPASE, CBC #### [address] Eosinophils (Bld) [#/Vol] 0.1 10*3/uL Normal 0.0-0.45 [facility] Comment on above: Performed By: #### H EPATIC, BMP, LIPASE, CBC #### [address] Eosinophils/100 WBC (Bld) 1.7 % Normal . [facility] Comment on above: Performed By: #### H EPATIC, BMP, LIPASE, CBC #### [address] Erythrocyte distribution width (RBC) [Ratio] 13.0 % Normal 11.9-15.3 [facility] Comment on above: Performed By: #### H EPATIC, BMP, LIPASE, CBC #### [address] Hematocrit (Bld) [Volume fraction] 36.3 % Normal 34.0-46.4 [facility] Comment on above: Performed By: #### H EPATIC, BMP, LIPASE, CBC #### [address] Hemoglobin (Bld) [Mass/Vol] 12.7 g/dL Normal 11.8-15.4 [facility] Comment on above: Performed By: #### H EPATIC, BMP, LIPASE, CBC #### [place] [address] [place] Lymphocytes (Bld) [#/Vol] 1.7 10*3/uL Normal 1.00-4.8 [facility] Comment on above: Performed By: #### H EPATIC, BMP, LIPASE, CBC #### [address] Lymphocytes/100 WBC (Bld) 40.8 % Normal . [facility] Comment on above: Performed By: #### H EPATIC, BMP, LIPASE, CBC #### [address] MCH (RBC) [Entitic mass] 31.1 pg Normal 24.7-34.3 [facility] Comment on above: Performed By: #### H EPATIC, BMP, LIPASE, CBC #### [address] MCV (RBC) [Entitic vol] 89.2 fL Normal 80-100 [facility] Comment on above: Performed By: #### H EPATIC, BMP, LIPASE, CBC #### [address] Mean Corpuscular HGB Conc 34.9 g/dL Normal 32.0-35.0 [facility] Comment on above: Performed By: #### H EPATIC, BMP, LIPASE, CBC #### [address] Monocytes (Bld) [#/Vol] 0.3 10*3/uL Normal 0.0-0.8 [facility] Comment on above: Performed By: #### H EPATIC, BMP, LIPASE, CBC #### [address] Monocytes/100 WBC (Bld) 17.39 % Normal 0.00-20.00 [facility] Comment on above: Performed By: #### H EPATIC, BMP, LIPASE, CBC #### [address] Monocytes/100 WBC (Bld) 7.3 % Normal . [facility] Comment on above: Performed By: #### H EPATIC, BMP, LIPASE, CBC #### [address] Neutrophils (Bld) [#/Vol] 2.0 10*3/uL Normal 1.8-7.7 [facility] Comment on above: Performed By: #### H EPATIC, BMP, LIPASE, CBC #### [address] Neutrophils/100 WBC (Bld) 49.0 % Normal . [facility] Comment on above: Performed By: #### H EPATIC, BMP, LIPASE, CBC #### [address] NRBC% 0.2 /100{WBC} Normal 0-0.5 [facility] Comment on above: Performed By: #### H EPATIC, BMP, LIPASE, CBC #### [address] Platelet mean volume (Bld) [Entitic vol] 8.8 fL Normal 6.3-10.7 [facility] Comment on above: Performed By: #### H EPATIC, BMP, LIPASE, CBC #### [address] Platelets (Bld) [#/Vol] 288 10*3/uL Normal 150-450 [facility] Comment on above: Performed By: #### H EPATIC, BMP, LIPASE, CBC #### [address] RBC (Bld) [#/Vol] 4.07 10*6/uL Normal 3.60-5.00 [facility] Comment on above: Performed By: #### H EPATIC, BMP, LIPASE, CBC #### [address] WBC (Bld) [#/Vol] 4.2 10*3/uL Normal 3.8-11.6 [facility] Comment on above: Performed By: #### H EPATIC, BMP, LIPASE, CBC #### [address] Creatinine [Mass/volume] in Serum or PlasmaOrdered By: Roseline Mejia on 02-13-2023 Creatinine [Mass/Vol] 0.73 mg/dL 0.60-1.20 [facility] Eosinophils Auto (Bld) [#/Vo l]Ordered By: Roseline Mejia on 02-13-2023 Eosinophils (Bld) [#/Vol] 0.1 10*3/uL 0.0-0.45 [facility] Eosinophils/100 WBC Auto (Bl d)Ordered By: Roseline Mejia on 02-13-2023 Eosinophils/100 WBC (Bld) 1.7 % . [facility] Erythrocyte distribution wid th Auto (RBC) [Ratio]Ordered By: Roseline Mejia on 02-13-2023 Erythrocyte distribution width (RBC) [Ratio] 13.0 % 11.9-15.3 [facility] Globulin Calc (S) [Mass/Vol] Ordered By: Roseline Mejia on 02-13-2023 Globulin (S) [Mass/Vol] 2.9 g/dL [facility] Glucose [Mass/volume] in Ser um or PlasmaOrdered By: Roseline Mejia on 02-13-2023 Glucose [Mass/Vol] 85 mg/dL 70-100 [facility] Comment on above: ADA recommended refe rence rangeRandom Glucose Reference Range is dependent on time and content of last meal. Glucose of more than 200 mg/dL in a nonstressed, ambulatory subject supports the diagnosis of Diabetes Mellitus. HCG ( test) IA.rapi d Ql (U)Ordered By: Roseline Mejia on 02-13-2023 HCG ( test) Ql (U) Negative [facility] HCG,Urineon 02-13-2023 Beta HCG ( test) Ql (U) Negative Normal [facility] Comment on above: Order Comment: Name Collection Type:: Clean-Voided Midstream Result Comment: PERF ORMED BY: [place] [address] PATHOLOGIST W[employer]LL[employer] CONTROL TECHNICIAN BAUTISTA BAKER M.D. Performed By: #### [facility], [facility] #### [address] Hematocrit Auto (Bld) [Volum e fraction]Ordered By: Roseline Mejia on 02-13-2023 Hematocrit (Bld) [Volume fraction] 36.3 % 34.0-46.4 [facility] Hemoglobin [Mass/volume] in BloodOrdered By: Roseline Mejia on 02-13-2023 Hemoglobin (Bld) [Mass/Vol] 12.7 g/dL 11.8-15.4 [facility] Hepatic Panelon 02-13-2023 Albumin [Mass/Vol] 4.0 g/dL Normal 3.5-5.7 [facility] Comment on above: Performed By: #### H EPATIC, BMP, LIPASE, CBC #### [facility] [address] Albumin/Globulin [Mass ratio] 1.4 {ratio} Normal [facility] Comment on above: Performed By: #### H EPATIC, BMP, LIPASE, CBC #### [facility] [address] ALP [Catalytic activity/Vol] 55 U/L Normal 34-104 [facility] Comment on above: Performed By: #### H EPATIC, BMP, LIPASE, CBC #### [facility] [address] [place] [address] ALT [Catalytic activity/Vol] 11 U/L Normal 7-52 [facility] Comment on above: Performed By: #### H EPATIC, BMP, LIPASE, CBC #### [facility] [address] [place] [address] AST [Catalytic activity/Vol] 20 U/L Normal 13-39 [facility] Comment on above: Performed By: #### H EPATIC, BMP, LIPASE, CBC #### [facility] [address] [place] [address] Bilirubin [Mass/Vol] 0.5 mg/dL Normal 0.3-1.0 [facility] Comment on above: Performed By: #### H EPATIC, BMP, LIPASE, CBC #### [facility] [address] [place] [address] Bilirubin,Indirect 0.4 mg/dL Normal [facility] Comment on above: Performed By: #### H EPATIC, BMP, LIPASE, CBC #### [facility] [address] [place] [address] Bilirubin.indirect [Mass/Vol] 0.10 mg/dL Normal 0.03-0.18 [facility] Comment on above: Performed By: #### H EPATIC, BMP, LIPASE, CBC #### [facility] [address] [place] [address] Globulin (S) [Mass/Vol] 2.9 g/dL Normal [facility] Comment on above: Performed By: #### H EPATIC, BMP, LIPASE, CBC #### [facility] [address] [place] [address] Protein [Mass/Vol] 6.9 g/dL Normal 6.4-8.9 [facility] Comment on above: Performed By: #### H EPATIC, BMP, LIPASE, CBC #### [address] Ketones Auto test strip (U) [Mass/Vol]Ordered By: Roseline Mejia on 02-13-2023 Ketones (U) [Mass/Vol] Trace Negative [facility] Leukocytes [#/volume] correc darvin for nucleated erythrocytes in Blood by Automated counOrdered By: Roseline Mejia on 02-13-2023 WBC corrected for nucl RBC Auto (Bld) [#/Vol] 4.2 10*3/uL 3.8-11.6 [facility] Lipaseon 02-13-2023 Lipase [Catalytic activity/Vol] 42.0 U/L Normal 11.0-82.0 [facility] Comment on above: Result Comment: PERF ORMED BY: [address] [place] [address] PATHOLOGIST WATER [employer]LL[employer] CONTROL TECHNICIAN BAUTISTA BAKER M.D. Performed By: #### H EPATIC, BMP, LIPASE, CBC #### [facility] [address] [place] [address] Lipase [Enzymatic activity/v olume] in Serum or PlasmaOrdered By: Roseline Mejia on 02-13-2023 Lipase [Catalytic activity/Vol] 42.0 U/L 11.0-82.0 [facility] Lymphocytes Auto (Bld) [#/Vo l]Ordered By: Roseline Mejia on 02-13-2023 Lymphocytes (Bld) [#/Vol] 1.7 10*3/uL 1.00-4.8 [facility] Lymphocytes/100 WBC Auto (Bl d)Ordered By: Roseline Mejia on 02-13-2023 Lymphocytes/100 WBC (Bld) 40.8 % . [facility] MCH Auto (RBC) [Entitic mass ]Ordered By: Roseline Mejia on 02-13-2023 MCH (RBC) [Entitic mass] 31.1 pg 24.7-34.3 [facility] MCHC Auto (RBC) [Mass/Vol]Or dered By: Roseline Mejia on 02-13-2023 MCHC (RBC) [Mass/Vol] 34.9 g/dL 32.0-35.0 [facility] MCV Auto (RBC) [Entitic vol] Ordered By: Roseline Mejia on 02-13-2023 MCV (RBC) [Entitic vol] 89.2 fL 80-100 [facility] Monocyte distribution width [Entitic volume] in Blood by AutomatedOrdered By: Roseline Mejia on 02-13-2023 Monocyte distribution width Auto (Bld) [Entitic vol] 17.39 % 0.00-20.00 [facility] Monocytes Auto (Bld) [#/Vol] Ordered By: Roseline Mejia on 02-13-2023 Monocytes (Bld) [#/Vol] 0.3 10*3/uL 0.0-0.8 [facility] Monocytes/100 WBC Auto (Bld) Ordered By: Roseline Mejia on 02-13-2023 Monocytes/100 WBC (Bld) 7.3 % . [facility] Neutrophils Auto (Bld) [#/Vo l]Ordered By: Roseline Mejia on 02-13-2023 Neutrophils (Bld) [#/Vol] 2.0 10*3/uL 1.8-7.7 [facility] Neutrophils/100 WBC Auto (Bl d)Ordered By: oRseline Mejia on 02-13-2023 Neutrophils/100 WBC (Bld) 49.0 % . [facility] Nitrite Test strip Ql (U)Ord ered By: Roseline Mejia on 02-13-2023 Nitrite Ql (U) Negative Negative [facility] No Panel InformationOrdered By: Roseline Mejia on 02-13-2023 Estimated GFR (CKD-EPI) > 60.0 mL/Min [facility] Creatinine Clearance (Chem 119.02 [facility] Nucleated erythrocytes [Pres ence] in Blood by Automated countOrdered By: Roseline Mejia on 02-13-2023 Nucleated RBC Auto Ql (Bld) 0.2 /100{WBC} 0-0.5 [facility] Platelet mean volume Auto (B ld) [Entitic vol]Ordered By: Roseline Mejia on 02-13-2023 Platelet mean volume (Bld) [Entitic vol] 8.8 fL 6.3-10.7 [facility] Platelets Auto (Bld) [#/Vol] Ordered By: Roseline Mejia on 02-13-2023 Platelets (Bld) [#/Vol] 288 10*3/uL 150-450 [facility] Potassium [Moles/volume] in Serum or PlasmaOrdered By: Roseline Mejia on 02-13-2023 Potassium [Moles/Vol] 3.7 mmol/L 3.5-5.1 [facility] Protein Auto test strip (U) [Mass/Vol]Ordered By: Roseline Mejia on 02-13-2023 Protein (U) [Mass/Vol] Negative Negative [facility] Protein [Mass/volume] in Ser um or PlasmaOrdered By: Roseline Mejia on 02-13-2023 Protein [Mass/Vol] 6.9 g/dL 6.4-8.9 [facility] RBC Auto (Bld) [#/Vol]Ordere d By: Roseline Mejia on 02-13-2023 RBC (Bld) [#/Vol] 4.07 10*6/uL 3.60-5.00 [facility] Serum or plasma albumin/glob ulin mass ratioOrdered By: Roseline Mejia on 02-13-2023 Albumin/Globulin [Mass ratio] 1.4 {ratio} [facility] Serum or plasma anion gap de terminationOrdered By: Roseline Mejia on 02-13-2023 Anion gap [Moles/Vol] 10.5 mmol/L 6.0-15.0 [facility] Serum or plasma non-glucuron idated bilirubin measurement (mass/volume)Ordered By: Roseline Mejia on 02-13-2023 Bilirubin.indirect [Mass/Vol] 0.4 mg/dL [facility] Sodium [Moles/volume] in Ser um or PlasmaOrdered By: Roseline Mejia on 02-13-2023 Sodium [Moles/Vol] 137 mmol/L 136-145 [facility] Specific gravity Auto test s trip (U) [Rel density]Ordered By: Roseline Mejia on 02-13-2023 Specific gravity (U) [Rel density] 1.017 1.001-1.030 [facility] Urea nitrogen [Mass/volume] in Serum or PlasmaOrdered By: Roseline Mejia on 02-13-2023 Urea nitrogen [Mass/Vol] 10 mg/dL 7-25 [facility] Urinalysison 02-13-2023 Appearance (U) Clear Normal Clear [facility] Comment on above: Order Comment: Name Collection Type:: Clean-Voided Midstream Performed By: #### U A, UHCG #### [facility] [address] [place] [address] [place] Bilirubin,Urine Negative Normal Negative [facility] Comment on above: Order Comment: Name Collection Type:: Clean-Voided Midstream Performed By: #### U A, UHCG #### [facility] [address] [place] [id number] [place] Color (U) Yellow Normal Yellow [facility] Comment on above: Order Comment: Name Collection Type:: Clean-Voided Midstream Performed By: #### U A, UHCG #### [facility] [address] [place] [id number] [place] Glucose Ql (U) Normal Normal Normal [facility] Comment on above: Order Comment: Name Collection Type:: Clean-Voided Midstream Performed By: #### U A, UHCG #### [address] Ketones Ql (U) Trace High Negative [facility] Comment on above: Order Comment: Name Collection Type:: Clean-Voided Midstream Performed By: #### U A, UHCG #### [address] Leukocyte esterase Test strip Ql (U) Negative Normal Negative [facility] Comment on above: Order Comment: Name Collection Type:: Clean-Voided Midstream Performed By: #### U A, UHCG #### [address] Nitrite,Urine Negative Normal Negative [facility] Comment on above: Order Comment: Name Collection Type:: Clean-Voided Midstream Performed By: #### U A, UHCG #### [address] Occult Blood,Urine Negative Normal Negative [facility] Comment on above: Order Comment: Name Collection Type:: Clean-Voided Midstream Performed By: #### U A, UHCG #### [address] pH (U) 5.5 [pH] Normal 5.0-9.0 [facility] Comment on above: Order Comment: Name Collection Type:: Clean-Voided Midstream Performed By: #### U A, UHCG #### [place] [address] [place] Protein,Urine Negative Normal Negative [facility] Comment on above: Order Comment: Name Collection Type:: Clean-Voided Midstream Performed By: #### U A, UHCG #### [address] Specificy [place],Urine 1.017 Normal 1.001-1.030 [facility] Comment on above: Order Comment: Name Collection Type:: Clean-Voided Midstream Performed By: #### U A, UHCG #### [facility] [address] Urobilinogen,Urine Normal Normal Normal [facility] Comment on above: Order Comment: Name Collection Type:: Clean-Voided Midstream Performed By: #### U A [facility] #### [facility] [address] Urine clarity by refractomet ry automatedOrdered By: Roseline Mejia on 02-13-2023 Clarity Refractometry automated (U) Clear Clear [facility] Urine glucose measurement by automated test strip (mass/volume)Ordered By: Roseline Mejia on 02-13-2023 Glucose Auto test strip (U) [Mass/Vol] Normal mg/dL Normal [facility] Urine hemoglobin detection b y automated test stripOrdered By: Roseline Mejia on 02-13-2023 Hemoglobin Auto test strip Ql (U) Negative Negative [facility] Urine leukocyte esterase det ection by automated test stripOrdered By: Roseline Mejia on 02-13-2023 Leukocyte esterase Auto test strip Ql (U) Negative Negative [facility] Urobilinogen Auto test strip (U) [Mass/Vol]Ordered By: Roseline Mejia on 02-13-2023 Urobilinogen (U) [Mass/Vol] Normal mg/dL Normal [facility] WBC Auto (Bld) [#/Vol]Ordere d By: Roseline Mejia on 02-13-2023 WBC (Bld) [#/Vol] 4.2 10*3/uL 3.8-11.6 [facility] pH Auto test strip (U)Ordere d By: Roseline Mejia on 02-13-2023 pH (U) 5.5 [pH] 5.0-9.0 [facility] CBC W Auto Differential pane l (Bld)on 02-12-2023 Basophils (Bld) [#/Vol] 0.02 x10*3/uL Normal 0.00-0.10 [facility] Comment on above: Performed By: #### 5 7021-8 #### OUMAR BRICEÑO ([id number]) [facility] ([facility] [address] [place] [address] Basophils/100 WBC (Bld) 0.5 % Normal 0.0-2.0 [facility] Comment on above: Performed By: #### 5 7021-8 #### OUMAR BRICEÑO ([id number]) [facility] ([facility]) [address] [place] [address] Eosinophils (Bld) [#/Vol] 0.06 x10*3/uL Normal 0.00-0.70 [facility] Comment on above: Performed By: #### 5 7021-8 #### OUMAR BRICEÑO ([id number]) [facility] ([facility]) [address] [place] [address] Eosinophils/100 WBC (Bld) 1.4 % Normal 0.0-6.0 [facility] Comment on above: Performed By: #### 5 7021-8 #### OUMAR BRICEÑO ([id number]) [facility] ([facility]) [address] [place] [address] Erythrocyte distribution width (RBC) [Ratio] 12.1 % Normal 11.5-14.5 [facility] Comment on above: Performed By: #### 5 7021-8 #### OUMAR BRICEÑO ([id number]) [facility] ([facility]) [address] [place] [address] Hematocrit (Bld) [Volume fraction] 37.9 % Normal 36.0-46.0 [facility] Comment on above: Performed By: #### 5 7021-8 #### OUMAR BRICEÑO ([id number]) [facility] ([facility]) [address] [place] [address] Hemoglobin (Bld) [Mass/Vol] 12.8 g/dL Normal 12.0-16.0 [facility] Comment on above: Performed By: #### 5 7021-8 #### OUMAR BRICEÑO ([id number]) [facility] ([facility]) [address] [place] [address] Immature granulocytes (Bld) [#/Vol] 0.01 x10*3/uL Normal 0.00-0.70 [facility] Comment on above: Performed By: #### 5 7021-8 #### OUMAR BRICEÑO ([id number]) [facility] ([facility]) [address] [place] [address] Immature granulocytes/100 WBC (Bld) 0.2 % Normal 0.0-0.9 [facility] Comment on above: Result Comment: Janny ture Granulocyte Count (IG) includes promyelocytes, myelocytes and metamyelocytes but does not include bands. Percent differential counts (%) should be interpreted in the context of the absolute cell counts (cells/UL). Performed By: #### 5 7021-8 #### OUMAR BRICEÑO ([id number]) [facility] ([facility]) [address] [place] [address] Lymphocytes (Bld) [#/Vol] 1.63 x10*3/uL Normal 1.20-4.80 [facility] Comment on above: Performed By: #### 5 7021-8 #### OUMAR BRICEÑO ([id number]) [facility] ([facility]) [address] [place] [address] Lymphocytes/100 WBC (Bld) 38.9 % Normal 13.0-44.0 [facility] Comment on above: Performed By: #### 5 7021-8 #### OUMAR BRICEÑO ([id number]) [facility] ([facility]) [address] [place] [address] MCH (RBC) [Entitic mass] 30.5 pg Normal 26.0-34.0 [facility] Comment on above: Performed By: #### 5 7021-8 #### OUMAR BRICEÑO ([id number]) [facility] ([facility]) [address] [place] [address] MCHC (RBC) [Mass/Vol] 33.8 g/dL Normal 32.0-36.0 [facility] Comment on above: Performed By: #### 5 7021-8 #### OUMAR BRICEÑO ([id number]) [facility] ([facility]) [address] [place] [address] MCV (RBC) [Entitic vol] 91 fL Normal 80-100 [facility] Comment on above: Performed By: #### 5 7021-8 #### OUMAR BRICEÑO ([id number]) [facility] ([facility]) [address] [place] [address] Monocytes (Bld) [#/Vol] 0.26 x10*3/uL Normal 0.10-1.00 [facility] Comment on above: Performed By: #### 5 7021-8 #### OUMAR BRICEÑO ([id number]) [facility] ([facility]) [address] [place] [address] Monocytes/100 WBC (Bld) 6.2 % Normal 2.0-10.0 [facility] Comment on above: Performed By: #### 5 7021-8 #### OUMAR BRICEÑO ([id number]) [facility] ([facility]) [address] [place] [address] Neutrophils (Bld) [#/Vol] 2.21 x10*3/uL Normal 1.20-7.70 [facility] Comment on above: Result Comment: Perc ent differential counts (%) should be interpreted in the context of the absolute cell counts (cells/uL). Performed By: #### 5 7021-8 #### OUMAR BRICEÑO ([id number]) [facility] ([facility]) [address] [place] [address] Neutrophils/100 WBC (Bld) 52.8 % Normal 40.0-80.0 [facility] Comment on above: Performed By: #### 5 7021-8 #### OUMAR BRICEÑO ([id number]) [facility] ([facility]) [address] [place] [address] Nucleated RBC/100 WBC (Bld) [Ratio] 0.0 /100 WBCs Normal 0.0-0.0 [facility] Comment on above: Performed By: #### 5 7021-8 #### OUMAR BRICEÑO ([id number]) [facility] ([facility]) [address] [place] [address] Platelets (Bld) [#/Vol] 291 x10*3/uL Normal 150-450 [facility] Comment on above: Performed By: #### 5 7021-8 #### OUMAR BRICEÑO ([id number]) [facility] ([facility]) [address] [place] [address] RBC (Bld) [#/Vol] 4.19 x10*6/uL Normal 4.00-5.20 [facility] Comment on above: Performed By: #### 5 7021-8 #### OUMAR BRICEÑO ([id number]) [facility] ([facility]) [address] [place] [address] WBC (Bld) [#/Vol] 4.2 x10*3/uL Low 4.4-11.3 [facility] Comment on above: Performed By: #### 5 7021-8 #### OUMAR BRICEÑO ([id number]) [facility] ([facility]) [address] [place] [address] Comprehensive metabolic 2000 panelon 02-12-2023 Albumin BCP dye [Mass/Vol] 4.2 g/dL Normal 3.4-5.0 [facility] Comment on above: Performed By: #### 2 4323-8 #### OUMAR BRICEÑO ([id number]) [facility] ([facility]) [address] [place] [address] ALP [Catalytic activity/Vol] 55 U/L Normal 33-110 [facility] Comment on above: Performed By: #### 2 4323-8 #### OUMAR BRICEÑO ([id number]) [facility] ([facility]) [address] [place] [address] ALT With P-5'-P [Catalytic activity/Vol] 13 U/L Normal 7-45 [facility] Comment on above: Result Comment: Umm ents treated with Sulfasalazine may generate falsely decreased results for ALT. Performed By: #### 2 4323-8 #### OUMAR BRICEÑO ([id number]) [facility] ([facility]) [address] [place] [address] Anion gap [Moles/Vol] 13 mmol/L Normal 10-20 [facility] Comment on above: Performed By: #### 2 4323-8 #### OUMAR BRICEÑO ([id number]) [facility] ([facility]) [address] [place] [address] AST With P-5'-P [Catalytic activity/Vol] 21 U/L Normal 9-39 [facility] Comment on above: Performed By: #### 2 4323-8 #### OUMAR BRICEÑO ([id number]) [facility] ([facility]) [address] [place] [address] Bilirubin [Mass/Vol] 0.5 mg/dL Normal 0.0-1.2 [facility] Comment on above: Performed By: #### 2 4323-8 #### OUMAR BRICEÑO (60525) [facility] ([facility]) [address] [place] [address] Calcium [Mass/Vol] 8.9 mg/dL Normal 8.6-10.3 [facility] Comment on above: Performed By: #### 2 4323-8 #### OUMAR BRICEÑO ([id number]) [facility] ([facility]) [address] [place] [address] Chloride [Moles/Vol] 107 mmol/L Normal 98-107 [facility] Comment on above: Performed By: #### 2 4323-8 #### OUMAR BRICEÑO ([id number]) [facility] ([facility]) [address] [place] [address] CO2 [Moles/Vol] 23 mmol/L Normal 21-32 [facility] Comment on above: Performed By: #### 2 4323-8 #### OUMAR BRICEÑO ([id number]) [facility] ([facility]) [address] [place] [address] Creatinine [Mass/Vol] 0.73 mg/dL Normal 0.50-1.05 [facility] Comment on above: Performed By: #### 2 4323-8 #### OUMAR BRICEÑO ([id number]) [facility] ([facility]) [address] [place] [address] GFR/1.73 sq M.predicted MDRD (S/P/Bld) [Vol rate/Area] mL/min/{1.73_m2} Normal >60 [facility] Comment on above: Result Comment: Calc ulations of estimated GFR are performed using the 2020 CKD-EPI Study Refit equation without the race variable for the IDMS-Traceable creatinine methods. https://jasn.asnjournals.org/content/early/ASN.888616 1333 Performed By: #### 2 4323-8 #### OUMAR BRICEÑO ([id number]) [facility] ([facility]) [address] [place] [address] Glucose [Mass/Vol] 84 mg/dL Normal 74-99 [facility] Comment on above: Performed By: #### 2 4323-8 #### OUMAR BRICEÑO ([id number]) [facility] ([facility]) [address] [place] [address] Potassium [Moles/Vol] 3.6 mmol/L Normal 3.5-5.3 [facility] Comment on above: Performed By: #### 2 4323-8 #### OUMAR BRICEÑO ([id number]) [facility] ([facility]) [address] [place] [address] Protein [Mass/Vol] 7.0 g/dL Normal 6.4-8.2 [facility] Comment on above: Performed By: #### 2 4323-8 #### OUMAR BRICEÑO ([id number]) [facility] ([facility]) [address] [place] [address] Sodium [Moles/Vol] 139 mmol/L Normal 136-145 [facility] Comment on above: Performed By: #### 2 4323-8 #### OUMAR BRICEÑO ([id number]) [facility] ([facility]) [address] [place] [address] Urea nitrogen [Mass/Vol] 9 mg/dL Normal 6-23 [facility] Comment on above: Performed By: #### 2 4323-8 #### OUMAR BRICEÑO ([id number]) [facility] ([facility]) [address] [place] [address] Lactateon 02-12-2023 Lactate [Moles/Vol] 0.6 mmol/L Normal 0.4-2.0 [facility] Comment on above: Order Comment: Venip uncture immediately after or during the administration of Metamizole may lead to falsely low results. Testing should be performed immediately prior to Metamizole dosing. Performed By: #### 2 524-7 #### OUMAR BRICEÑO ([id number]) [facility] ([facility]) [address] [place] [address] Triacylglycerol lipaseon Lipase [Catalytic activity/Vol] 43 U/L Normal 9-82 [facility] Comment on above: Order Comment: Venip uncture immediately after or during the administration of Metamizole may lead to falsely low results. Testing should be performed immediately prior to Metamizole dosing. Performed By: #### 3 040-3 #### OUMAR BRICEÑO ([id number]) [facility] ([facility]) [address] [place] [address] Urinalysis complete panel (U )on 02-12-2023 Appearance (U) Clear Normal Clear [facility] Comment on above: Performed By: #### 2 4356-8 #### OUMAR BRICEÑO ([id number]) [facility] ([facility]) [address] [place] [address] Bilirubin (U) [Mass/Vol] Negative Normal NEGATIVE [facility] Comment on above: Performed By: #### 2 4356-8 #### OUMAR BRICEÑO ([id number]) [facility] ([facility]) [address] [place] [address] Color (U) Yellow Normal Straw, Yellow [facility] Comment on above: Performed By: #### 2 4356-8 #### OUMAR BRICEÑO ([id number]) [facility] ([facility]) [address] [place] [address] Glucose Auto test strip (U) [Mass/Vol] Negative Normal NEGATIVE [facility] Comment on above: Performed By: #### 2 4356-8 #### OUMAR BRICEÑO ([id number]) [facility] ([facility]) [address] [place] [address], [place] [address] Ketones (U) [Mass/Vol] Negative Normal NEGATIVE [facility] Comment on above: Performed By: #### 2 4356-8 #### OUMAR BRICEÑO ([id number]) [facility] ([facility]) [address] [place] [address] Leukocyte esterase Auto test strip Ql (U) Negative Normal NEGATIVE [facility] Comment on above: Performed By: #### 2 4356-8 #### OUMAR BRICEÑO ([id number]) [facility] ([facility]) [address] [place] [address] Nitrite Auto test strip Ql (U) Negative Normal NEGATIVE [facility] Comment on above: Performed By: #### 2 4356-8 #### OUMAR BRICEÑO ([id number]) [facility] ([facility]) [address] [place] [address] pH (U) 6.0 [pH] Normal 5.0, 5.5, 6.0, 6.5, 7.0, 7.5, 8.0 [facility] Comment on above: Performed By: #### 2 4356-8 #### OUMAR BRICEÑO ([id number]) [facility] ([facility]) [address] [place] [address] Protein (U) [Mass/Vol] Negative Normal NEGATIVE [facility] Comment on above: Performed By: #### 2 4356-8 #### OUMAR BRICEÑO ([id number]) [facility] ([facility]) [address] [place] [address] RBC (U) [#/Vol] Negative Normal NEGATIVE [facility] Comment on above: Performed By: #### 2 4356-8 #### OUMAR BRICEÑO ([id number]) [facility] ([facility]) [address] [place] [address] Specific gravity (U) [Rel density] 1.021 Normal 1.005-1.035 [facility] Comment on above: Performed By: #### 2 4356-8 #### OUMAR BRICEÑO ([id number]) [facility] ([facility]) [address] [place] [address] Urobilinogen (U) [Mass/Vol] mg/dL Normal <2.0 [facility] Comment on above: Performed By: #### 2 4356-8 #### OUMAR BRICEÑO ([id number]) [facility] ([facility]) [address] [place] [address] CNPNon 02-11-2023 CNPN Normal [facility] HISTORY PHYSICALon HISTORY PHYSICAL HNO ID: [id number] Author: Vic Ramos MD Service: Pain Management Author Type: Anesthesiologist Type: HANDP Filed: 02/10/2023 2:42 PM Note Text: UPDATED HISTORY AND PHYSICAL EXAMINATION PATIENT NAME: Abbey Garcia SERVICE DATE: February 10, 2023 SERVICE TIME: 2:00 PM PHYSICAL EXAM MUST BE COMPLETED ON ADMISSION The History and Physical (completed in the past 30 days) has been reviewed and the patient has been examined. The contents accurately reflect the patient's condition with the following additions or revisions since the HANDP was completed: Examination indicates no changes from previous. This previous HANDP can be found in the Electronic Medical Record. No current facility-administered medications on file prior to encounter. Current Outpatient Medications on File Prior to Encounter Medication Sig gabapentin (NEURONTIN) 100 mg capsule take 1 tab PO BID x 7 days, then increase to 2 tabs PO BID x 7 days, then increase to 2 tabs PO TID if tolerated. escitalopram oxalate (LEXAPRO) 20 mg tablet Take 1 tablet by mouth once daily. promethazine (PHENERGAN) 25 mg tablet Take 1 tablet by mouth every 6 hours as needed. pantoprazole (PROTONIX) 40 mg grps Take 40 mg by mouth daily before breakfast. mirtazapine (REMERON) 15 mg tablet Take 1 tablet by mouth daily at bedtime. busPIRone (BUSPAR) 10 mg tablet Take 1 tablet by mouth twice daily. docusate sodium (COLACE) 100 mg capsule Take 1 capsule by mouth three times daily. decrease the dose or stop for diarrhea polyethylene glycol 3350 (MIRALAX) 17 gram/dose powder Take 17 g by mouth twice daily. reduced the dose or stop if you get diarrhea and restart after 48 hours to maintain 'at least' once a day bowel movement. Dissolve dose in 4 - 8 ounces of liquid and take as directed. levothyroxine (SYNTHROID) 100 mcg tablet Take 1 tablet by mouth once daily. liothyronine (CYTOMEL) 5 mcg tablet Take 5 mcg by mouth once daily. linaclotide (LINZESS) 145 mcg capsule Take 1 capsule by mouth daily at 6 am. albuterol HFA (PROVENTIL HFA, VENTOLIN HFA) 90 mcg/actuation inhaler Inhale 2 Puffs as instructed every 4 hours as needed for wheezing/shortness of breath. fluticasone-salmeterol (ADVAIR DISKUS) 100-50 mcg/dose inhaler Inhale 1 Puff as instructed every 12 hours. metoclopramide HCl (REGLAN) 5 mg tablet Take 5 mg by mouth before meals and at bedtime. acetaminophen (TYLENOL) 500 mg tablet Take 2 tablets by mouth every 6 hours as needed for pain or fever (specify). topiramate (TOPAMAX) 100 mg tablet Take 100 mg by mouth twice daily. ASA Class: III AIRWAY: Airway Visualization of Uvula: Yes Mouth opening greater than 2 fingerbreadths: Yes Neck Full Range of Motion: Yes LUNGS: Lungs clear to auscultation. CARDIAC: regular When using SEDATION, goal is moderate As detailed in the consent form, I have personally reviewed the risks, benefits, alternatives, expectations and personnel with the patient and have answered their questions. We are ready to proceed with the procedure as planned. SIGNATURE: Vic Ramos MD DATE: February 10, 2023 TIME: 2:00 PM [facility] HISTORY PHYSICAL HNO ID: [id number] Author: Aisha Carter APRN.OBGYN HOSPITALIST PHYSICIAN Service: General Internal Medicine Author Type: Nurse Practitioner Type: HANDP Filed: 02/10/2023 2:04 PM Note Text: Abbey Garcia returns to [facility] for the treatment of her abdominal pain. States having abdominal pain all the time but pain is worse after eating and drinking. Cannot sleep flat due to pain, has to be upright in a recliner. Has constant nausea and gets intermittent vomiting after eating. Has lost 10-15#. Receives TPN daily. PAIN LOCATION: as above PAIN SCALE: 6 on a scale of 0-10 PAIN CHARACTER: sharp DURATION: 4 months FREQUENCY: occurs constantly, intensity varies NOTHING TO EAT OR DRINK: Yes. Last meal was 02/08/23. Had sips of water this AM with meds. ANTICOAGULATION: no Allergies: Adhesive Tape-Silicones, Codeine, and Nsaids (Non-Steroidal Anti-Inflammatory Drug) Current Outpatient Medications: gabapentin (NEURONTIN) 100 mg capsuletake 1 tab PO BID x 7 days, then increase to 2 tabs PO BID x 7 days, then increase to 2 tabs PO TID if tolerated.Disp: 180 capsuleRfl: 5 escitalopram oxalate (LEXAPRO) 20 mg tabletTake 1 tablet by mouth once daily.Disp: 90 tabletRfl: 0 linaclotide (LINZESS) 145 mcg capsuleTake 1 capsule by mouth daily at 6 am.Disp: 30 capsuleRfl: 1 promethazine (PHENERGAN) 25 mg tabletTake 1 tablet by mouth every 6 hours as needed.Disp: 45 tabletRfl: 0 albuterol HFA (PROVENTIL HFA, VENTOLIN HFA) 90 mcg/actuation inhalerInhale 2 Puffs as instructed every 4 hours as needed for wheezing/shortness of breath.Disp: Rfl: fluticasone-salmeterol (ADVAIR DISKUS) 100-50 mcg/dose inhalerInhale 1 Puff as instructed every 12 hours.Disp: Rfl: pantoprazole (PROTONIX) 40 mg grpsTake 40 mg by mouth daily before breakfast.Disp: Rfl: metoclopramide HCl (REGLAN) 5 mg tabletTake 5 mg by mouth before meals and at bedtime.Disp: Rfl: mirtazapine (REMERON) 15 mg tabletTake 1 tablet by mouth daily at bedtime.Disp: 90 tabletRfl: 1 busPIRone (BUSPAR) 10 mg tabletTake 1 tablet by mouth twice daily.Disp: 180 tabletRfl: 1 acetaminophen (TYLENOL) 500 mg tabletTake 2 tablets by mouth every 6 hours as needed for pain or fever (specify).Disp: Rfl: docusate sodium (COLACE) 100 mg capsuleTake 1 capsule by mouth three times daily. decrease the dose or stop for diarrheaDisp: 90 capsuleRfl: 0 polyethylene glycol 3350 (MIRALAX) 17 gram/dose powderTake 17 g by mouth twice daily. reduced the dose or stop if you get diarrhea and restart after 48 hours to maintain 'at least' once a day bowel movement. Dissolve dose in 4 - 8 ounces of liquid and take as directed.Disp: 507 gRfl: 1 topiramate (TOPAMAX) 100 mg tabletTake 100 mg by mouth twice daily.Disp: Rfl: levothyroxine (SYNTHROID) 100 mcg tabletTake 1 tablet by mouth once daily.Disp: 90 tabletRfl: 3 liothyronine (CYTOMEL) 5 mcg tabletTake 5 mcg by mouth once daily.Disp: Rfl: VITAL SIGNS: BP 120/86 Pulse 71 Temp (Src) 97 (Temporal) Resp 18 SpO2 99% LMP 08/19/2020 LAST COAG: PT INR 1.0 04/05/2020 PT Sec 11.0 04/05/2020 PAST MEDICAL HISTORY Diagnosis Date Anemia Takes Pro FE daily. Arthritis Asthma Class 1 obesity without serious comorbidity with body mass index (BMI) of 33.0 to 33.9 in adult 09/25/2019 Gastric ulcer 2014 GERD (gastroesophageal reflux disease) History of IBS Hypertension Hypothyroid RICHAR on CPAP wears mask every night PCOS (polycystic ovarian syndrome) PONV (postoperative nausea and vomiting) 01/29/2022 Ventral hernia without obstruction or gangrene PHYSICAL EXAMINATION General appearance: Well appearing, alert, in no acute distress, well-hydrated, well nourished. Airway: uvula partially visualized Neck: good ROM. Lungs: Lungs clear to auscultation Heart: Regular rate and rhythm Abdomen: soft, +BS, tenderness noted in epigastric area Assessment I77.4 median arcuate ligament syndrome Plan: Block celiac plexus Aisha Carter APRN.[facility] OPERATIVE NOon 02-10-2023 OPERATIVE NO HNO ID: [id number] Author: Vic Ramos MD Service: Pain Management Author Type: Anesthesiologist Type: Operative Report Filed: 02/10/2023 2:41 PM Note Text: [facility] Pre-Procedure Note Patient Name: Abbey Garcia SUBJECTIVE: Abbey Garcia is a 32 year old female who presents to [facility]. This is her 1st. Patient denies any contraindications to the procedure including . 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 OBJECTIVE: BP 121/74 Pulse 75 Temp 36.1 ?C (97 ?F) (Temporal) Resp 16 LMP 08/19/2020 SpO2 99% Significant changes in the patients condition since the History and Physical: No INFORMED CONSENT: The procedure, risks, benefits and options were discussed with patient. There are no contraindications to the procedure. The patient expressed understanding and agreed to proceed. The personnel performing the procedure was discussed. I verify that I personally obtained Abbey Garcia's consent prior to the start of the procedure and the signed consent can be found on the patient's chart. Vic Ramos MD February 10, 2023 PROCEDURE: CELIAC PLEXUS BLOCKADE: diagnostic DESCRIPTION OF PROCEDURE: The patient was brought to the fluoroscopy suite. IV access was obtained prior to the procedure. The patient was positioned prone on the fluoroscopy table. Continuous hemodynamic monitoring was initiated including blood pressure, EKG, and pulse oximetry. IV sedation was administered incrementally to allow the patient to remain comfortable and conversant throughout the procedure. The skin was prepped with duraprep and draped in a sterile fashion. The L1 vertebral body was identified by fluoroscopy. The skin and subcutaneous tissues overlying the left L1 transverse process was anesthetized using 5 cc of Lidocaine 0.5%. Using an air-free system, under fluoroscopic guidance, a 22 gauge 7 spinal needle was slowly advanced to the anterolateral border of the L1 vertebral body. The needle was then advanced further anterior to the L1 vertebral body using continuous aspiration until beginning to aspirate heme, suggesting intra-aortic needle position. The needle was advanced until a change in resistance of the needle was felt and aspiration of heme was no longer possible. 2 cc of Omnipaque 300 contrast was injected through the needle, confirming contrast spread anterior to and along the aorta. There was no evidence of vascular uptake. The position of the needle and contrast was confirmed using oblique, AP and lateral fluoroscopic imaging. Negative aspiration for blood was confirmed. A solution of 5 mL of Ropivacaine 0.5% was injected incrementally in aliquots through the needle. The needle was removed and bleeding was nil. A sterile dressing was applied. Abbey Garcia was taken to the Post-block Recovery Area for further observation. Sedation: see nsg notes. mild sedation anxiolysis. Dr. Ramos was present during the entire procedure. Vic Ramos MD February 10, 2023 [facility] Post-Procedure Note Patient name: Abbey Garcia ASSESSMENT: Pre Procedure diagnosis: R10.9 abdominal pain I77.4 median arcuate ligament syndrome Post-Procedure diagnosis: same Post Procedure Pain Level: 1 on a scale of 0-10. Postoperative Nausea/Vomiting (PONV): absent Postoperative hydration status: adequate no specimen, no ebl Incision/Procedure Start Time: 2:24 PM Incision Close/Procedure End Time: 2:34 PM PLAN: -Call with % relief x #hrs - RTC prn - The treatment plan was discussed with the patient. Post procedure instructions were reviewed and the patient voiced understanding. Abbey Garcia was discharged to Home. Condition at the time of discharge was Good Vic Ramos MD February 10, 2023 day of surgery [facility] Family Medicine Office/Clini c Noteon 02-03-2023 Family Medicine Office/Clinic Note HPI Staff Abbey is a 32 year old female presenting for acute visit onset: 2-3 days ago Fevers: no Sinus congestion: yes left side Sneezing: Ear pain: left side Ear itching, popping, fullness, ringing, muffled hearing: pressure Ear drainage: yes, yellow/brown Swollen nodes: no Sore throat: yes started today Ear pain worse with chewing: Difficulty hearing: yes History of Present Illness pt presents today with ear pain and left sided sinus pressure Review of Systems PHQ Score Initial Depression Screen Score: 0 SCORE ROS - Provider Constitutional: no fever, no chills, no sweats, no fatigue Respiratory: no shortness of breath, no cough, no orthopnea, no wheezing., ear pain left sided sinus pressure Cardiovascular: no chest pain, no palpitations, no edema. Neurologic: no headache, no dizziness, no numbness, no weakness. Physical Exam Vitals & Measurements T: 36.5 ?C(Tympanic) HR: 60(Peripheral) RR: 16 BP: 118/84 SpO2: 97% HT: 66 in HT: 168 cm WT: 85.45 kg WT: 187.99 lb BMI: 30.28 General: alert, no acute distress ENMT: oral mucosa moist, no pharyngeal erythema or exudate, left TM and canal red and bulging with clear fluid, left sinus tenderness Cardiovascular: regular rate and rhythm, normal peripheral perfusion Respiratory: Lungs CTA, respirations non labored Extremities: no deformity, no trauma Neurological: oriented x 4, LOC appropriate for age, CN II-XII intact, motor strength equal & normal bilaterally, speech normal Assessment/Plan 1. Otitis media of left ear (H66.92: Otitis media, unspecified, left ear) pt presents today with ear pain and left sided sinus pressure. Left OM noted on exam. will treat with augmenting. all questions answered. Pt is scheduled for MAL block in 2 days. then will proceed to surgery to fix it. Ordered: amoxicillin-clavulanat e, = 1 tab(s), Oral, q12hr, X 7 day(s), # 14 tab(s), Refills(s) 0, Pharmacy: [facility]/pharmacy #[id number], 168, cm, 02/03/23 14:52:00 EST, Height/Length Dosing, 85.5, kg, 02/03/23 14:52:00 EST, Weight Dosing 2. BMI 30.0-30.9,adult (Z68.30: Body mass index [BMI] 30.0-30.9, adult) bmi education complete Ordered: amoxicillin-clavulanat e, = 1 tab(s), Oral, q12hr, X 7 day(s), # 14 tab(s), Refills(s) 0, Pharmacy: [facility]/pharmacy #[id number], 168, cm, 02/03/23 14:52:00 EST, Height/Length Dosing, 85.5, kg, 02/03/23 14:52:00 EST, Weight Dosing 3. Non-smoker (Z78.9: Other specified health status) continue not smoking Ordered: amoxicillin-clavulanat e, = 1 tab(s), Oral, q12hr, X 7 day(s), # 14 tab(s), Refills(s) 0, [id number] 168, cm, 02/03/23 14:52:00 EST, Height/Length Dosing, 85.5, kg, 02/03/23 14:52:00 EST, Weight Dosing Follow-up No qualifying data available Problem List/Past Medical History Ongoing Abnormal thyroid blood test Arthritis Asthma BMI 30.0-30.9,adult Bronchitis Depression Dysfunction of sphincter of Oddi Fatigue Gall stone Hyperthyroidism Hypothyroid Kidney cysts Kidney stone LUQ pain Malnourished Median arcuate ligament syndrome Mixed incontinence urge and stress Nausea Otitis media of left ear Rash of body Renal cyst Right flank pain Status post surgery Historical Allergic rhinitis Anemia Hypothyroidism Metabolic syndrome PCOS- polycystic ovary syndrome Procedure/Surgical History Endoscopic retrograde cholangiopancreatograp hy (ERCP); diagnostic, including collection of specimen(s) by brushing or washing, when performed (separate procedure) (11/11/2022), Laparoscopy, abdomen, peritoneum, and omentum, diagnostic, with or without collection of specimen(s) by brushing or washing (separate procedure) (11/11/2022), Esophagogastroduodenos copy, flexible, transoral; diagnostic, including collection of specimen(s) by brushing or washing, when performed (separate procedure) (10/27/2022), Revision (01/29/2022), Gastric sleeve (02/15/2021), Esophagogastroduodenos copy (01/20/2021), Hysterectomy (11/04/2020), Appendectomy, Cholecystectomy, Colonoscopy. Medications Advair Diskus 100 mcg-50 mcg inhalation powder, See Instructions Albuterol (Eqv-Ventolin HFA) 90 mcg/inh inhalation aerosol, 2 puff(s), Inhalation, q6hr Augmentin 875 mg oral tablet, 1 tab(s), Oral, q12hr busPIRone 10 mg Tab, 10 mg= 1 tab(s), Oral, BID escitalopram 20 mg Tab, 20 mg= 1 tab(s), Oral, Daily levothyroxine 100 mcg (0.1 mg) Tab, 100 mcg= 1 tab(s), Oral, Daily, 1 refills liothyronine 5 mcg Tab, 5 mcg, Oral, Daily, 3 refills mirtazapine 15 mg Tab, 15 mg= 1 tab(s), Oral, Once a day (at bedtime) promethazine 25 mg Tab, 25 mg= 1 tab(s), Oral, TID topiramate 100 mg Tab, See Instructions, 3 refills Zofran 4 mg Tab, 4 mg= 1 tab(s), Oral, q6hr, PRN Allergies NSAIDs (Unknown) codeine (unknown) Social History Alcohol - Denies Alcohol Use, 12/20/2020 Substance Abuse - Denies Substance Abuse, 12/20/2020 Tobacco - Denies Tobacco Use, 12/20/2020 Never (less than 100 in lifetime) Tobacco Use:. Never Smokeless (more content not included)... Normal [facility] Comment on above: Result Comment: Elec tronically Signed By: Jaquan Paula\.rene\Date and Time Signed: 02/03/23 15:18 EST Reminderson 01-18-2023 Reminders - From: Debbie Peacock To: JENNIFER - Recallnancy Rouse; Sent: 07/29/2022 09:17:48 EDT Show up: 12/29/2022 08:17:00 EST Subject: Schedule GREY Due Date/Time: 01/28/2023 08:17:00 EST Please schedule 6 mos GREY for pt. She will also need KUB for her appt. Called pt and left VM to see where she would like imaging for upcoming appointment Called pt and left VM to return our call and let us know where she would like imaging Called pt and left VM to return our call unable to know where she would like imaging done and appointment is on 01/20/23. Patient is having other health issues and has to have surgery at [facility]. Patient asked to push appointment out to July and is now scheduled for 08/04/[address] Rouse in [place]. Normal [facility] CNPNon 01-15-2023 CNPN Normal [facility] US MESENTERIC ARTERY DU PLEX COMPLETEon 01-14-2023 VAS US [place]ENTER[place] [address] Vascular Lab Report [facility] US MESENTERIC ARTERY DUPLEX COMPLETE Patient Name: ABBEY FLORES Reading Physician: [id number] Jaquelin Boggs MD, RPVI Study Date: 01/14/2023 Ordering Provider: [id number] JERAD MAGAÑA MRN/PID: [id number] Fellow: Technologist: Aisha Du RVT Date of /Age: 2 1990 / years Technologist 2: Gender: F Admission Status: Outpatient Location Performed: [facility] 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 History of gastric bypass with revision. CONCLUSIONS: Mesenteric: SMA demonstrates no evidence of hemodynamically significant stenosis and Splenic artery appears widely patent. Celiac artery velocities increase from 154 cm/s to 223 cm/s with expiration; cannot rule out possible element of median arcuate ligament compression physiology. Visualization is difficult due to color aliasing from overlying bowel gas; unable to adequately evaluate mid to distal celiac artery, hepatic or inferior mesenteric arteries. Additional Findings: Technically difficult exam due to body habitus and significant overlying bowel gas. Imaging & Doppler Findings: Aorta PSV 93 cm/s Celiac Origin PSV 71 cm/s Celiac Prox PSV 223 cm/s SMA Origin PSV 163 cm/s SMA Prox PSV 202 cm/s SMA Mid PSV 70 cm/s SMA Dist PSV 77 cm/s KEELY PSV 116 cm/s Splenic PSV 77 cm/s [id number] Jaquelin Boggs MD, RPBENNETT Final Normal [facility] CBC W Auto Differential pane l (Bld)on 01-13-2023 Basophils (Bld) [#/Vol] 0.04 x10*3/uL Normal 0.00-0.10 [facility] Comment on above: Performed By: #### 5 7021-8 #### MELISA Galvan ([id number]) [facility] () [address] [place] [address] Basophils/100 WBC (Bld) 0.7 % Normal 0.0-2.0 [facility] Comment on above: Performed By: #### 5 7021-8 #### MELISA Galvan ([id number]) [facility] () [address] [place] [address] Eosinophils (Bld) [#/Vol] 0.13 x10*3/uL Normal 0.00-0.70 [facility] Comment on above: Performed By: #### 5 7021-8 #### MELISA Galvan ([id number]) [facility] () [address] [place] [address] Eosinophils/100 WBC (Bld) 2.2 % Normal 0.0-6.0 [facility] Comment on above: Performed By: #### 5 7021-8 #### MELISA Galvan ([id number]) [facility] () [address] [place] [address] Erythrocyte distribution width (RBC) [Ratio] 12.4 % Normal 11.5-14.5 [facility] Comment on above: Performed By: #### 5 7021-8 #### MELISA Galvan ([id number]) [facility] () [address] [place] [address] Hematocrit (Bld) [Volume fraction] 36.6 % Normal 36.0-46.0 [facility] Comment on above: Performed By: #### 5 7021-8 #### MELISA Galvan (94035) [facility] () [address] [place] [address] Hemoglobin (Bld) [Mass/Vol] 12.6 g/dL Normal 12.0-16.0 [facility] Comment on above: Performed By: #### 5 7021-8 #### MELISA Galvan ([id number]) [facility] () [address] [place] [address] Immature granulocytes (Bld) [#/Vol] 0.01 x10*3/uL Normal 0.00-0.70 [facility] Comment on above: Performed By: #### 5 7021-8 #### MELISA Galvan ([id number]) [facility] () [address] [place] [address] Immature granulocytes/100 WBC (Bld) 0.2 % Normal 0.0-0.9 [facility] Comment on above: Result Comment: Janny ture Granulocyte Count (IG) includes promyelocytes, myelocytes and metamyelocytes but does not include bands. Percent differential counts (%) should be interpreted in the context of the absolute cell counts (cells/UL). Performed By: #### 5 7021-8 #### MELISA Galvan ([id number]) [facility] () [address] [place] [address] Lymphocytes (Bld) [#/Vol] 2.26 x10*3/uL Normal 1.20-4.80 [facility] Comment on above: Performed By: #### 5 7021-8 #### MELISA Galvan (53852) [facility] () [address] [place] [address] Lymphocytes/100 WBC (Bld) 39.0 % Normal 13.0-44.0 [facility] Comment on above: Performed By: #### 5 7021-8 #### MELISA Galvan (08067) [facility] () [address] [place] [address] MCH (RBC) [Entitic mass] 30.7 pg Normal 26.0-34.0 [facility] Comment on above: Performed By: #### 5 7021-8 #### MELISA Galvan ([id number]) [facility] () [address] [place] [address] MCHC (RBC) [Mass/Vol] 34.4 g/dL Normal 32.0-36.0 [facility] Comment on above: Performed By: #### 5 7021-8 #### MELISA Galvan ([id number]) [facility] () [address] [place] [address] MCV (RBC) [Entitic vol] 89 fL Normal 80-100 [facility] Comment on above: Performed By: #### 5 7021-8 #### MELISA Galvan (68000) [facility] () [address] [place] [address] Monocytes (Bld) [#/Vol] 0.41 x10*3/uL Normal 0.10-1.00 [facility] Comment on above: Performed By: #### 5 7021-8 #### MELISA Galvan (48554) [facility] () [address] [place] [address] Monocytes/100 WBC (Bld) 7.1 % Normal 2.0-10.0 [facility] Comment on above: Performed By: #### 5 7021-8 #### MELISA Galvan (69361) [facility] () [address] [place] [address] Neutrophils (Bld) [#/Vol] 2.95 x10*3/uL Normal 1.20-7.70 [facility] Comment on above: Result Comment: Perc ent differential counts (%) should be interpreted in the context of the absolute cell counts (cells/uL). Performed By: #### 5 7021-8 #### MELISA Galvan ([id number]) [facility] () [address] [place] [address] Neutrophils/100 WBC (Bld) 50.8 % Normal 40.0-80.0 [facility] Comment on above: Performed By: #### 5 7021-8 #### MELISA Galvan (74887) [facility] () [address] [place] [address] Nucleated RBC/100 WBC (Bld) [Ratio] 0.0 /100 WBCs Normal 0.0-0.0 [facility] Comment on above: Performed By: #### 5 7021-8 #### MELISA Galvan (26927) [facility] () [address] [place] [address] Platelets (Bld) [#/Vol] 222 x10*3/uL Normal 150-450 [facility] Comment on above: Performed By: #### 5 7021-8 #### MELISA Galvan (62719) [facility] () [address] [place] [address] RBC (Bld) [#/Vol] 4.11 x10*6/uL Normal 4.00-5.20 [facility] Comment on above: Performed By: #### 5 7021-8 #### MELISA Galvan ([id number]) [facility] () [address] [place] [address] WBC (Bld) [#/Vol] 5.8 x10*3/uL Normal 4.4-11.3 [facility] Comment on above: Performed By: #### 5 7021-8 #### MELISA Galvan (69866) [facility] () [address] [place] [address] Comprehensive metabolic 2000 panelon 01-13-2023 Albumin [Mass/Vol] 4.2 g/dL Normal 3.5-5.0 [facility] Comment on above: Performed By: #### 2 4323-8 #### MELISA Galvan (58852) [facility] () [address] [place] [address] ALP (Bld) [Catalytic activity/Vol] 74 U/L Normal 35-125 [facility] Comment on above: Performed By: #### 2 4323-8 #### MELISA Galvan (34756) [facility] () [address] [place] [address] ALT [Catalytic activity/Vol] 15 U/L Normal 5-40 [facility] Comment on above: Performed By: #### 2 432-8 #### MELISA Galvan (41100) [facility] () [address] [place] [address] Anion gap [Moles/Vol] 10 mmol/L Normal <=19 [facility] Comment on above: Performed By: #### 2 432-8 #### MELISA Galvan (04507) [facility] () [address] [place] [address] AST [Catalytic activity/Vol] 26 U/L Normal 5-40 [facility] Comment on above: Performed By: #### 2 4323-8 #### MELISA Galvan ([id number]) [facility] () [address] [place] [address] Bilirubin [Mass/Vol] 0.5 mg/dL Normal 0.1-1.2 [facility] Comment on above: Performed By: #### 2 4323-8 #### MELISA Galvan (35749) [facility] () [address] [place] [address] Calcium [Mass/Vol] 9.1 mg/dL Normal 8.5-10.4 [facility] Comment on above: Performed By: #### 2 4323-8 #### MELISA Galvan (22637) [facility] () [address] [place] [address] Chloride [Moles/Vol] 103 mmol/L Normal 97-107 [facility] Comment on above: Performed By: #### 2 4323-8 #### MELISA Galvan (41595) [facility] () [address] [place] [address] CO2 [Moles/Vol] 23 mmol/L Low 24-31 [facility] Comment on above: Performed By: #### 2 432-8 #### MELISA Galvan (82787) [facility] () [address] [place] [address] Creatinine [Mass/Vol] 0.70 mg/dL Normal 0.40-1.60 [facility] Comment on above: Performed By: #### 2 4323-8 #### MELISA Galvan (33652) [facility] () [address] [place] [address] GFR/1.73 sq M.predicted MDRD (S/P/Bld) [Vol rate/Area] mL/min/{1.73_m2} Normal >60 [facility] Comment on above: Result Comment: Calc ulations of estimated GFR are performed using the 2020 CKD-EPI Study Refit equation without the race variable for the IDMS-Traceable creatinine methods. https://jasn.asnjournals.org/content/early//ASN.851076 2905 Performed By: #### 2 4323-8 #### MELISA Galvan ([id number]) [facility] () [address] [place] [address] Glucose [Mass/Vol] 89 mg/dL Normal 65-99 [facility] Comment on above: Performed By: #### 2 4323-8 #### MELISA Galvan ([id number]) [facility] () [address] [place] [address] Potassium [Moles/Vol] 3.5 mmol/L Normal 3.4-5.1 [facility] Comment on above: Performed By: #### 2 4323-8 #### MELISA Galvan ([id number]) [facility] () [address] [place] [address] Protein [Mass/Vol] 6.9 g/dL Normal 5.9-7.9 [facility] Comment on above: Performed By: #### 2 4323-8 #### MELISA Galvan () [facility] () [address] [place] [address] Sodium [Moles/Vol] 136 mmol/L Normal 133-145 [facility] Comment on above: Performed By: #### 2 4323-8 #### MELISA Galvan () [facility] () [address] [place] [address] Urea nitrogen [Mass/Vol] 13 mg/dL Normal 8-25 [facility] Comment on above: Performed By: #### 2 4323-8 #### MELISA Galvan () [facility] () [address] [place] [address] HCG ( test) IA.rapi d Ql (U)on 01-13-2023 HCG ( test) Ql (U) Negative Normal NEGATIVE [facility] Comment on above: Performed By: #### 8 0384-1 #### MELISA Galvan () [facility] () [address] [place] [address] Urinalysis complete panel (U )on 01-13-2023 Appearance (U) Clear Normal Clear [facility] Comment on above: Performed By: #### 2 4356-8 #### MELISA Galvan () [facility] () [address] [place] [address] Bilirubin (U) [Mass/Vol] Negative Normal NEGATIVE [facility] Comment on above: Performed By: #### 2 4356-8 #### MELISA Galvan () [facility] () [address] [place] [address] Color (U) Light-Yellow Normal Light-Yellow, Yellow, Dark-Yellow [facility] Comment on above: Performed By: #### 2 4356-8 #### MELISA Galvan ([id number]) [facility] () [address] [place] [address] Glucose Auto test strip (U) [Mass/Vol] Normal Normal Normal [facility] Comment on above: Performed By: #### 2 4356-8 #### MELISA Galvan ([id number]) [facility] () [address] [place] [address] Ketones (U) [Mass/Vol] Negative Normal NEGATIVE [facility] Comment on above: Performed By: #### 2 4356-8 #### MELISA Galvan ([id number]) [facility] () [address] [place] [address] Leukocyte esterase Auto test strip Ql (U) Negative Normal NEGATIVE [facility] Comment on above: Performed By: #### 2 4356-8 #### MELISA Galvan ([id number]) [facility] () [address] [place] [address] Nitrite Auto test strip Ql (U) Negative Normal NEGATIVE [facility] Comment on above: Performed By: #### 2 4356-8 #### MELISA Galvan ([id number]) [facility] () [address] [place] [address] pH (U) 7.0 [pH] Normal 5.0, 5.5, 6.0, 6.5, 7.0, 7.5, 8.0 [facility] Comment on above: Performed By: #### 2 4356-8 #### MELISA Galvan ([id number]) [facility] () [address] [place] [address] Protein (U) [Mass/Vol] Negative Normal NEGATIVE, 10 (TRACE), 20 (TRACE) [facility] Comment on above: Performed By: #### 2 4356-8 #### MELISA Galvan ([id number]) [facility] () [address] [place] [address] RBC (U) [#/Vol] Negative Normal NEGATIVE [facility] Comment on above: Performed By: #### 2 4356-8 #### MELISA Galvan ([id number]) [facility] () [address] [place] [address] Specific gravity (U) [Rel density] 1.010 Normal 1.005-1.035 [facility] Comment on above: Performed By: #### 2 4356-8 #### MELISA Galvan ([id number]) [facility] () [address] [place] [address] Urobilinogen (U) [Mass/Vol] Normal Normal Normal [facility] Comment on above: Performed By: #### 2 4356-8 #### MELISA Galvan ([id number]) [facility] () [address] [place] [address] CNPNon 01-11-2023 CNPN Normal [facility] Heart and Vascular Office/Cl inic Noteon 01-09-2023 Heart and Vascular Office/Clinic Note Review of Systems Constitutional: no fever, no sweats, no weakness Skin: no rash, no lesions, nobruising/petechiae ENMT: no sore throat, no congestion, no hoarseness Respiratory: no shortness of breath, no cough, no orthopnea, no wheezing Cardiovascular: no chest pain, no palpitations, no edema Gastrointestinal: no nausea, no vomiting, no diarrhea, no GI bleeding Genitourinary: no anuria/oliguria no hematuria Musculoskeletal: no back pain, no trauma Neurologic: no headache, no dizziness, no numbness, no weakness Psychiatric: no sleeping problems, no irritability, no anxiety/depression. Heme/Lymph: no bleeding tendency, no bruising tendency Allergy/Immunologic: no recurrent infections, no impaired immunity Additional ROS info: Except as noted in the above Review of Systems and in the History of Present Illness all other systems have been reviewed and are negative or noncontributory. Physical Exam General: alert, no acute distress Skin: warm, dry intact Head: atraumatic, normocephalic Neck: Trachea midline, no JVD, no bruit Eye: normal conjunctiva, sclera clear ENMT: oral mucosa moist Cardiovascular: regular rate and rhythm, nomurmur normal peripheral perfusion Respiratory: Lungs CTA, respirations non labored Chest wall: no deformity. Gastrointestinal: soft, non distended, no tenderness, no guarding. Back: No tenderness, Normal ROM, Normal alignment. Extremities: no edema, no deformity, no trauma Neurological: oriented x 4, LOC appropriate for agesensation equal & normal bilaterally, speech normal Psychiatric: cooperative, affect appropriate for age, normal judgement, normal psychiatric thoughts. Follow-up No qualifying data available Problem List/Past Medical History Ongoing BMI 30.0-30.9,adult LUQ pain Nausea Historical Allergic rhinitis Anemia Hypothyroidism Metabolic syndrome PCOS- polycystic ovary syndrome Procedure/Surgical History Revision (01/29/2022), Gastric sleeve (02/15/2021), Esophagogastroduodenos copy (01/20/2021), Hysterectomy (11/04/2020). Medications minipill Birthcontrol, 0, Daily, Not taking acetaminophen-codeine 300 mg-15 mg oral tablet, 1 tab(s), Oral, BID, Not taking acetaminophen-oxycodon e 325 mg-5 mg Tab, 1 tab(s), Oral, q4hr, PRN, Not taking Antivert 12.5 mg Tab, 12.5 mg= 1 tab(s), Oral, TID, PRN Bentyl 10 mg Cap, 10 mg= 1 cap(s), Oral, QID, Not taking Bentyl 10 mg Cap, 20 mg= 2 cap(s), Oral, QID, Not taking Carafate Tab, 1 gm= 1 tab(s), Oral, QID, Not taking Cymbalta, 60 mg, Oral, BID, Not taking doxycycline hyclate 100 mg Cap, 100 mg= 1 cap(s), Oral, BID, Not taking gabapentin 300 mg Cap, See Instructions, Not taking levothyroxine, 75 mcg, Oral, Daily, Not taking levothyroxine 125 mcg (0.125 mg) Tab, 125 mcg= 1 tab(s), Oral, Daily Lexapro 10 mg Tab, 10 mg= 1 tab(s), Oral, Daily Lexapro 5 mg oral tablet, 5 mg= 1 tab(s), Oral, Daily liothyronine 5 mcg Tab, 5 mcg, Oral, Daily, 1 refills metformin, 1000 mg, Oral, BID, Not taking mirtazapine 15 mg Tab, Not taking mirtazapine 15 mg Tab, 15 mg= 1 tab(s), Oral, Once a day (at bedtime) Multi Vitamins oral tablet, 1 tab(s), Oral, Daily ondansetron 4 mg Dis Tab, 4 mg= 1 tab(s), Oral, q6hr ProFe, 180 mg, Oral, Daily, Not taking promethazine 12.5 mg oral tablet, 12.5 mg= 1 tab(s), Oral, q4hr promethazine 25 mg Tab, 25 mg= 1 tab(s), Oral, q6hr, PRN, Not taking promethazine 25 mg Tab, 25 mg= 1 tab(s), Oral, q6hr, PRN, Not taking Protonix 40 mg Tab-DR, 40 mg= 1 tab(s), Oral, BID, Not taking sertraline, 100 mg, Oral, Daily, Not taking Zofran ODT 4 mg Tab, 4 mg= 1 tab(s), Oral, TID, Not taking Allergies codeine (unknown) Social History Alcohol - Denies Alcohol Use, 12/20/2020 Substance Abuse - Denies Substance Abuse, 12/20/2020 Tobacco - Denies Tobacco Use, 12/20/2020 Never (less than 100 in lifetime) Tobacco Use:. Never Smokeless Tobacco Use:. Ready to change: No. Household tobacco concerns: No., 06/10/2022 Family History Family history is unknown Immunizations Vaccine Date Status Comments influenza virus vaccine, inactivated 11/16/2021 Recorded SARS-CoV-2 (COVID-19) mRNA BNT-162b2 vax 02/18/2021 Recorded 2022-05-05: TPVALL influenza virus vaccine, inactivated 01/01/2021 Recorded influenza virus vaccine, inactivated 12/25/2020 Recorded SARS-CoV-2 (COVID-19) Ad26 vaccine 06/23/2020 Recorded 2022-05-05: TPVAL influenza virus vaccine, inactivated 11/28/2018 Recorded Normal [facility] Comment on above: Result Comment: Elec tronically Signed By: Guero JOHNSON, Raulito Galvan Other Comment: Proba breann no-show. CNPNon 01-06-2023 CNPN Normal [facility] Kim Auto Diffon 12-31-2022 Basophils/100 WBC (Bld) 0.6 % Normal 0.0-2.0 [facility] Comment on above: Order Comment: Order Added by Discern Expert. Performed By: #### 2 997882, 5109303, 97605113, 0079595, 87840685, 2558128, 8666702 ####[address] [place] [address] Basophils/Leukocytes Auto (Bld) [Pure # fraction] 0.0 E9/L Normal 0.0-0.2 [facility] Comment on above: Order Comment: Order Added by Discern Expert. Performed By: #### 2 136839, 1990616, 96931197, 9757192, 76753064, 3254968, 5754194 ####[address] [address] Eosinophils/100 WBC (Bld) 0.4 % Normal 0.0-8.0 [facility] Comment on above: Order Comment: Order Added by Discern Expert. Performed By: #### 2 048393, 0650619, 41653430, 4299720, 73154635, 4870187, 1038685 ####[address] [place] [address] Eosinophils/Leukocyte s Auto (Bld) [Pure # fraction] 0.0 E9/L Normal 0.0-0.5 [facility] Comment on above: Order Comment: Order Added by Discern Expert. Performed By: #### 2 436428, 9108890, 98995388, 0966758, 07647530, 9701237, 5972400 ####[address] [place] [address] Lymphocytes/100 WBC (Bld) 42.3 % Normal 14.0-50.0 [facility] Comment on above: Order Comment: Order Added by Discern Expert. Performed By: #### 2 464038, 6157643, 04136673, 0797554, 39383927, 7548797, 3415669 ####[address] [place] [address] Lymphocytes/Leukocyte s Auto (Bld) [Pure # fraction] 1.9 E9/L Normal 1.0-4.0 [facility] Comment on above: Order Comment: Order Added by Discern Expert. Performed By: #### 2 797573, 2318986, 08091057, 8522964, 83810293, 7333393, 3714696 ####[address] [place] [address] Monocytes/100 WBC (Bld) 7.9 % Normal 4.0-14.0 [facility] Comment on above: Order Comment: Order Added by Discern Expert. Performed By: #### 2 398655, 9854135, 60473974, 2404690, 03884021, 3980537, 8564279 ####[address] [address] Monocytes/Leukocytes Auto (Bld) [Pure # fraction] 0.4 E9/L Normal 0.2-1.0 [facility] Comment on above: Order Comment: Order Added by Discern Expert. Performed By: #### 2 196517, 3279448, 76182471, 9938168, 64886803, 9908864, 8949442 ####[address] [place] [address] Neutrophils/100 WBC (Bld) 48.8 % Normal 36.0-75.0 [facility] Comment on above: Order Comment: Order Added by Discern Expert. Performed By: #### 2 906637, 1319110, 54696005, 6346645, 69593495, 1319727, 7236096 ####[address] [place] [address] Neutrophils/Leukocyte s Auto (Bld) [Pure # fraction] 2.2 E9/L Normal 2.0-7.5 [facility] Comment on above: Order Comment: Order Added by Discern Expert. Performed By: #### 2 452018, 0759824, 77129610, 9332976, 62687450, 0813288, 1391800 ####[facility] [address] [place] [address] B hCG Qualon 12-31-2022 Beta HCG ( test) Ql Negative Normal [facility] Comment on above: Performed By: #### 2 374511, 3634342, 83840823, 3503995, 72787952, 3210882, 3616320 ####[facility] [address] [place] [address] BMPon 12-31-2022 Creatinine [Mass/Vol] 0.8 mg/dL Normal 0.5-1.3 [facility] Comment on above: Performed By: #### 2 829194, 2519330, 68396628, 2234105, 54186004, 7173715, 7901483 ####[facility] [address] [place] [address] Urea nitrogen [Mass/Vol] 16 mg/dL Normal 5-21 [facility] Comment on above: Performed By: #### 2 401036, 8488437, 78046167, 5707333, 59239736, 6049442, 7728778 ####[facility] [address] [place] [address] Urea nitrogen/Creatinine [Mass ratio] 20 No Units Normal 10-20 [facility] Comment on above: Performed By: #### 2 256648, 3592809, 02496355, 5520046, 51950135, 1013195, 3565161 ####[facility] [address] [place] [address] Anion gap [Moles/Vol] 10 mmol/L Normal 6-16 [facility] Comment on above: Performed By: #### 2 171444, 1921133, 46983119, 9241288, 38644232, 5845773, 6868712 ####[facility] [address] [place] [address] Calcium [Mass/Vol] 8.6 mg/dL Low 8.9-11.1 [facility] Comment on above: Performed By: #### 2 070827, 6612315, 68533871, 5744154, 97381463, 1642111, 0152314 ####[facility] [address] [place] [address] Chloride [Moles/Vol] 110 mmol/L Normal 101-111 [facility] Comment on above: Performed By: #### 2 524331, 8086925, 93318549, 3268203, 29187392, 1771580, 9233838 ####[facility] [address] [place] [address] CO2 [Moles/Vol] 20 mmol/L Low 21-31 [facility] Comment on above: Performed By: #### 2 209555, 0609171, 70969559, 8265205, 40517023, 9857373, 2893163 ####[facility] [address] [place] [address] Glucose [Mass/Vol] 87 mg/dL Normal 55-199 [facility] Comment on above: Result Comment: If t his glucose result represents a fasting glucose, interpretation should refer to the following reference range: 55-99 mg/dL Performed By: #### 2 820159, 8034656, 69905460, 4295839, 37874729, 3652835, 0362366 ####[facility] [address] [place] [address] Potassium [Moles/Vol] 3.2 mmol/L Low 3.5-5.3 [facility] Comment on above: Performed By: #### 2 931585, 2100125, 86514846, 4337096, 43202424, 2107352, 4468624 ####[facility] [address] [place] [address] Sodium [Moles/Vol] 137 mmol/L Normal 135-145 [facility] Comment on above: Performed By: #### 2 833715, 8745145, 58145850, 4252968, 59765564, 8481195, 8113120 ####[address] [place] [address] CBC w/ Auto Diffon 3 Erythrocyte distribution width (RBC) [Ratio] 13.9 % Normal 10.9-14.2 [facility] Comment on above: Performed By: #### 2 654537, 7012176, 45252919, 1620615, 76318676, 9395238, 9375323 ####[address] [address] Hematocrit (Bld) [Volume fraction] 35.5 % Normal 34.0-46.0 [facility] Comment on above: Performed By: #### 2 020936, 1864255, 59331818, 6852140, 01821001, 2101431, 2640119 ####[address] [address] Hemoglobin (Bld) [Mass/Vol] 12.2 g/dL Normal 12.0-16.0 [facility] Comment on above: Performed By: #### 2 452456, 3819234, 50868788, 8937974, 35565341, 8624025, 6609432 ####[address] [address] MCH (RBC) [Entitic mass] 30.8 pg Normal 27.0-34.0 [facility] Comment on above: Performed By: #### 2 666465, 4160777, 33530825, 5443521, 43225319, 0215813, 4810214 ####[address] [address] MCHC (RBC) [Mass/Vol] 34.4 g/dL Normal 31.4-36.0 [facility] Comment on above: Performed By: #### 2 153372, 4711609, 86013937, 5189606, 44773228, 6981487, 1862422 ####[address] [address] MCV (RBC) [Entitic vol] 89.5 fL Normal 80.0-100.0 [facility] Comment on above: Performed By: #### 2 874022, 7692092, 66914818, 3069561, 36191452, 8636006, 9274118 ####[facility] [address] [place] [address] Platelet mean volume (Bld) [Entitic vol] 9.5 fL Normal 6.4-10.8 [facility] Comment on above: Performed By: #### 2 509930, 1006968, 67794764, 2908267, 62227021, 2757182, 4153437 ####[facility] [address] [place] [address] Platelets (Bld) [#/Vol] 177.0 E9/L Normal 150.0-500.0 [facility] Comment on above: Performed By: #### 2 056471, 5371790, 04300112, 8559051, 79430107, 1588241, 6180669 ####[address] [address] RBC (Bld) [#/Vol] 4.0 E12/L Low 4.3-5.9 [facility] Comment on above: Performed By: #### 2 244011, 0025076, 99243990, 9492617, 12082301, 1599340, 7462087 ####[address] [place] [address] WBC corrected for nucl RBC Auto (Bld) [#/Vol] 4.4 E9/L Normal 4.0-11.0 [facility] Comment on above: Performed By: #### 2 964951, 2799055, 78760525, 8933938, 21450511, 4977947, 9998193 ####[address] [address] CHEMISTRYOrdered By: SYSTEM SYSTEM on 12-31-2022 Albumin [Mass/Vol] 3.9 g/dL Normal 3.3 - 5.0 gm/dL [facility] Remisol Albumin/Globulin [Mass ratio] 1.3 {ratio} Normal 1.1 - 2.2 [facility] Remisol ALP [Catalytic activity/Vol] 51 [iU]/d Normal 21 - 98 Int._Unit/L [facility] Remisol ALT No additional P-5'-P [Catalytic activity/Vol] 21 [iU]/d Normal 6 - 46 Int._Unit/L [facility] Remisol Anion gap [Moles/Vol] 10 mmol/L Normal 6 - 16 mEq/L [facility] Remisol AST [Catalytic activity/Vol] 32 [iU]/d Normal 5 - 43 Int._Unit/L [facility] Bilirubin [Mass/Vol] 0.5 mg/dL Normal 0.0 - 1 .1 mg/dL [facility] Bilirubin.direct [Mass/Vol] 0.1 mg/dL Normal 0.1 - 0.4 mg/dL [facility] Bilirubin.indirect [Mass or moles/Vol] 0.4 mg/dL Normal 0.1 - 0.9 mg/dL [facility] Calcium [Mass/Vol] 8.6 mg/dL Low 8.9 - 11. 1 mg/dL [facility] Chloride [Moles/Vol] 110 mmol/L Normal 101 - 1 11 mmol/L [facility] CO2 [Moles/Vol] 20 mmol/L Low 21 - 31 mmol/L [facility] Creatinine [Mass/Vol] 0.8 mg/dL Normal 0.5 - 1.3 mg/dL [facility] GFR/1.73 sq M.predicted among non-blacks MDRD (S/P/Bld) [Vol rate/Area] 100 mL/min/1.73 m2 Normal >=59mL/min/1.7 3 m2 [facility] Chem S Comment on above: Interpretive Data: C hronic kidney disease could be indicated at eGFR's of less than 60 mL/min/1.73m2. Kidney failure is indicated at less than 15 mL/min/1.73m2. Globulin (S) [Mass/Vol] 2.9 g/dL Normal 1.4 - 4.0 gm/dL [facility] Glucose [Mass/Vol] 87 mg/dL Normal 55 - 199 mg/dL [facility] Comment on above: Interpretive Data: I f this glucose result represents a fasting glucose, interpretation should refer to the following reference range: 55-99 mg/dL Lipase [Catalytic activity/Vol] 49 U/L Normal 13 - 58 unit/L [facility] Potassium [Moles/Vol] 3.2 mmol/L Low 3.5 - 5.3 mmol/L [facility] Protein [Mass/Vol] 6.8 g/dL Normal 6.0 - 7.8 gm/dL [facility] Sodium [Moles/Vol] 137 mmol/L Normal 135 - 145 mmol/L [facility] Urea nitrogen [Mass/Vol] 16 mg/dL Normal 5 - 21 mg/dL [facility] Remisol Urea nitrogen/Creatinine [Mass ratio] 20 mg/mg Normal 10 - 20 [facility] Remisol Consent for Treatmenton 12-16 Consent for Treatment [id number] [facility] Discharge Instructionson Discharge Instructions [id number] [facility] ED Clinical Summaryon 2022 ED Clinical Summary [id number] ED Clinical Summary Person Information Name: ABBEY GARCIA Terrell/[facility] Age: 32 Years : 1990 Sex: Female Language: Burmese PCP: Jaquan Paula Marital Status: Visit Id: Visit Reason: Blood in stool; Abdominal pain; DR SENT OVER, BLOODY STOOL, NAUSOUS, PAIN IN STOMACH Speciality: Acuity: 3 Enc Type: Emergency Med Service: Emergency Arrival: 12/31/2022 12:30:51 Discharge: 12/31/2022 16:02:52 LOS: 000 03:32 Checkin: 12/31/2022 12:30:51 Checkout: 12/31/2022 16:02:52 Dispo Type: Home (Routine DC) EVENTS: Event Name Event Status Request Date/Time Start Date/Time Complete Date/Time Arrive Complete 12/31/2022 12:30:51 12/31/2022 12:30:51 12/31/2022 12:30:51 Document Home Meds Request 12/31/2022 12:30:51 Triage Complete 12/31/2022 12:30:51 12/31/2022 12:44:32 12/31/2022 12:44:32 Bed Assign Complete 12/31/2022 12:45:16 12/31/2022 12:45:16 12/31/2022 12:45:16 Dr Exam Complete 12/31/2022 12:45:16 12/31/2022 12:50:23 12/31/2022 12:50:23 RN Exam Complete 12/31/2022 12:45:16 12/31/2022 13:29:32 12/31/2022 13:29:32 Registration Complete 12/31/2022 12:50:23 12/31/2022 12:59:39 12/31/2022 12:59:39 Dr Exam Complete 12/31/2022 12:51:25 12/31/2022 12:51:25 12/31/2022 12:51:25 Meds Admin Complete 12/31/2022 12:56:39 12/31/2022 13:04:31 Pending Labs Complete 12/31/2022 12:56:39 12/31/2022 13:52:27 Lab Complete 12/31/2022 12:56:39 12/31/2022 13:42:44 Urine Collect Complete 12/31/2022 12:56:39 12/31/2022 13:42:41 Reg Complete Request 12/31/2022 12:59:39 Reg Bed Request Complete 12/31/2022 12:59:39 12/31/2022 12:59:39 12/31/2022 12:59:39 Pending Labs Complete 12/31/2022 13:21:41 12/31/2022 13:21:41 12/31/2022 13:42:45 Lab Complete 12/31/2022 13:21:41 12/31/2022 13:21:41 12/31/2022 13:42:45 Pending Labs Complete 12/31/2022 13:25:57 12/31/2022 13:25:57 12/31/2022 13:26:05 Lab Complete 12/31/2022 13:25:57 12/31/2022 13:25:57 12/31/2022 13:26:05 Meds Admin Complete 12/31/2022 13:43:52 12/31/2022 14:24:09 Meds Admin Complete 12/31/2022 14:54:18 12/31/2022 15:25:49 Meds Admin Complete 12/31/2022 15:23:34 12/31/2022 15:32:56 Meds Admin Complete 12/31/2022 15:27:27 12/31/2022 15:32:56 Discharge Complete 12/31/2022 15:35:20 12/31/2022 16:02:59 12/31/2022 16:02:59 Meds Admin Complete 12/31/2022 15:44:10 12/31/2022 15:53:36 Meds Admin Complete 12/31/2022 15:45:02 12/31/2022 15:53:37 Transfer Complete 12/31/2022 16:02:59 12/31/2022 16:02:59 12/31/2022 16:02:59 ADDRESS: [address] [place] [id number] PHYS DOC NOTES: MEDICAL INFORMATION: Prescriptions Given: Medications to Continue with No Changes Other Medications ondansetron (Zofran 4 mg Tab) 1 Tablets By Mouth every 6 hours as needed Nausea. Take one tab by mouth every six hours as needed for nausea. Refills: 0. promethazine (promethazine 25 mg Tab) 1 Tablets By Mouth 3 times a day. Refills: 0. PATIENT EDUCATION INFORMATION: Instructions: Diarrhea, Adult; Abdominal Pain, Adult Follow up: With: Address: When: Jaquan Morrow [address] [place] [id number] Business (1) In 3 days 01/03/2023 DIAGNOSIS: Abdominal pain; Diarrhea Normal [facility] ED Note-Physicianon 01-01-20 ED Note-Physician Basic Information Time Seen: Lonnie Rios PA-C 12/31/2022 12:50 Chief Complaint pt c\o abd pain and dark\red stools since last night History of Present Illness 32-year-old female comes to the ED for evaluation abdominal pain. For the last few days she has had diarrhea. She now has noted some red streaking in her stool. Associate abdominal cramping, left greater than right. No fever, chills, nausea or vomiting. She does have an extensive abdominal history with multiple abdominal surgeries including hysterectomy, appendectomy and gastric sleeve. She receives majority of her nutrition via right PICC line and TPN. She does state that she was recently started on antibiotics for sinus infection and is questioning if that is contributory to her diarrhea. Review of Systems A 10 point review of systems is negative except as noted above. Medical and Surgical History: Reviewed and noted Social history: Lives at home Tobacco: Denies Physical Exam Vitals & Measurements T: 36.5 ?C(Oral) HR: 81(Monitored) RR: 16 BP: 124/82 SpO2: 100% HT: 168 cm WT: 83.1 kg BMI: 29.44 Nurses notes and vital signs reviewed and patient is not hypoxic. General: The patient appears well, resting comfortably. Skin: Warm, dry. Head: Atraumatic. Neck: No JVD. Eye: Normal conjunctiva. Ears, Nose, Mouth, and Throat: Moist mucous membranes. Cardiovascular: Strong distal pulses. Chest wall: Respiratory: Respirations are nonlabored. Back: Normal range of motion. Musculoskeletal: Normal ROM with no gross deformity. Gastrointestinal: Mild lower abdominal tenderness, left greater than right. No guarding, rebound or rigidity. No distention Urological: Neurological: Awake and alert. No focal deficits. Follows commands. Psychiatric: Cooperative. Medical Decision Making Laboratory studies reviewed and noted. No leukocytosis. Renal function is preserved. There is a slight hypokalemia that was replaced orally. She is given IV fluids as well. On serial examination she is feeling much improved. Remains afebrile. No vomiting. No diarrhea here in the ED. She is discharged home to follow-up with her PCP. Patient was encouraged to return to the ED if symptoms worsen or change. Assessment/Plan Abdominal pain (R10.9: Unspecified abdominal pain) Diarrhea (R19.7: Diarrhea, unspecified) Orders: atropine-diphenoxylate , 1 tab(s), Tab, Oral, Once, Stop date 12/31/22 14:54:00 EST, STAT, Start date 12/31/22 14:54:00 EST heparin flush, 500 unit(s) = 5 mL, Soln-IV, IV Push, Once, Stop date 12/31/22 15:44:00 EST, STAT, Start date 12/31/22 15:44:00 EST, 12/31/22 15:44:00 EST heparin flush, 500 unit(s) = 5 mL, Soln-IV, IV Push, Once, Stop date 12/31/22 15:43:00 EST, STAT, Start date 12/31/22 15:43:00 EST, 12/31/22 15:43:00 EST morphine, 4 mg = 1 mL, Injection, IV Push, Once, Stop date 12/31/22 13:43:00 EST, STAT, Start date 12/31/22 13:43:00 EST, 12/31/22 13:43:00 EST ondansetron, 4 mg = 2 mL, Injection, IV Push, Once, Stop date 12/31/22 13:43:00 EST, STAT, Start date 12/31/22 13:43:00 EST, 12/31/22 13:43:00 EST potassium bicarbonate, 50 mEq = 2 tab(s), Tab-Eff, Oral, Once, Stop date 12/31/22 15:27:00 EST, STAT, Start date 12/31/22 15:27:00 EST, 12/31/22 15:27:00 EST potassium chloride, 40 mEq = 2 tab(s), Tab-ER, Oral, Once, Stop date 12/31/22 15:23:00 EST, STAT, Start date 12/31/22 15:23:00 EST, 12/31/22 15:23:00 EST Sodium Chloride 0.9% intravenous solution, 1,000 mL, Soln-IV, IV, Once, Stop date 12/31/22 12:56:00 EST, STAT, Start date 12/31/22 12:56:00 EST, Infuse over 61, minute(s) Automated Diff Basic Metabolic Panel Beta hCG Qual CBC w/ Auto Diff eGFR Hepatic Function Panel Lipase Level UA With Cult Reflex Medications Administered Given heparin flush 100 units/mL Soln 5 mL, 500 unit(s), IV Push heparin flush 100 units/mL Soln 5 mL, 500 unit(s), IV Push Lomotil 0.025 mg-2.5 mg Tab, 1 tab(s), Oral morphine 4 mg/mL Inj, 4 mg, IV Push NS 1000 ml Bolus, 1000 mL, IV potassium bicarbonate 25 mEq Tab (K-LYTE), 50 mEq, Oral Zofran 4 mg/2 mL Injection, 4 mg, IV Push Disposition Plan Patient Discharge Condition Disposition: Discharged home Condition: Improved and stable Counseled: Patient and/or family were counseled to workup, results, treatment plan and follow-up recommendations Discharge Prescription List Prescriptions No active prescription medications Follow-up With When Contact Information Jaquan Morrow In 3 days 01/03/[address] [facility] (1) Additional Instructions: Patient Education Diarrhea, Adult Abdominal Pain, Adult Attestation Patient seen and evaluated by the physician phlebotomy lab assistant. Attending physician was present in the emergency department and supervised care. This visit was performed by both the physician and an APC. I performed all aspects of the MDM as documented. This report was transcribed using voice recognition software. Every effort was made to ens (more content not included)... Normal [facility] Comment on above: Result Comment: Elec tronically Signed By: Lonnie Rios PA-C\.br\Date and Time Signed: 12/31/22 19:15 EST\.br\Electronically Co-Signed By: Mateusz Garcia DO\.br\Date and Time Co-Signed: 12/31/22 19:25 EST ED Patient Education Noteon 12-31-2022 ED Patient Education Note Gastroenterology Abdominal Pain, Adult Pain in the abdomen (abdominal pain) can be caused by many things. Often, abdominal pain is not serious and it gets better with no treatment or by being treated at home. However, sometimes abdominal pain is serious. Your health care provider will ask questions about your medical history and do a physical exam to try to determine the cause of your abdominal pain. Follow these instructions at home: Medicines ? Take lrsw-xpz-gzqidup and prescription medicines only as told by your health care provider. ? Do not take a laxative unless told by your health care provider. General instructions ? Watch your condition for any changes. ? Drink enough fluid to keep your urine pale yellow. ? Keep all follow-up visits as told by your health care provider. This is important. Contact a health care provider if: ? Your abdominal pain changes or gets worse. ? You are not hungry or you lose weight without trying. ? You are constipated or have diarrhea for more than 2?3 days. ? You have pain when you urinate or have a bowel movement. ? Your abdominal pain wakes you up at night. ? Your pain gets worse with meals, after eating, or with certain foods. ? You are vomiting and cannot keep anything down. ? You have a fever. ? You have blood in your urine. Get help right away if: ? Your pain does not go away as soon as your health care provider told you to expect. ? You cannot stop vomiting. ? Your pain is only in areas of the abdomen, such as the right side or the left lower portion of the abdomen. Pain on the right side could be caused by appendicitis. ? You have bloody or black stools, or stools that look like tar. ? You have severe pain, cramping, or bloating in your abdomen. ? You have signs of dehydration, such as: ? Dark urine, very little urine, or no urine. ? Cracked lips. ? Dry mouth. ? Sunken eyes. ? Sleepiness. ? Weakness. ? You have trouble breathing or chest pain. Summary ? Often, abdominal pain is not serious and it gets better with no treatment or by being treated at home. However, sometimes abdominal pain is serious. ? Watch your condition for any changes. ? Take tazs-nhf-asrnkci and prescription medicines only as told by your health care provider. ? Contact a health care provider if your abdominal pain changes or gets worse. ? Get help right away if you have severe pain, cramping, or bloating in your abdomen. This information is not intended to replace advice given to you by your health care provider. Make sure you discuss any questions you have with your health care provider. Document Revised: 03/22/2020 Document Reviewed: 06/12/2019 [employer] Patient Education ? 2022 [employer] Infectious Disease Diarrhea, Adult Diarrhea is frequent loose and watery bowel movements. Diarrhea can make you feel weak and cause you to become dehydrated. Dehydration can make you tired and thirsty, cause you to have a dry mouth, and decrease how often you urinate. Diarrhea typically lasts 2?3 days. However, it can last longer if it is a sign of something more serious. It is important to treat your diarrhea as told by your health care provider. Follow these instructions at home: Eating and drinking Follow these recommendations as told by your health care provider: ? Take an oral rehydration solution (ORS). This is an lbcf-mtw-wtnvtib medicine that helps return your body to its normal balance of nutrients and water. It is found at pharmacies and retail stores. ? Drink plenty of fluids, such as water, ice chips, diluted fruit juice, and low-calorie sports drinks. You can drink milk also, if desired. ? Avoid drinking fluids that contain a lot of sugar or caffeine, such as energy drinks, sports drinks, and soda. ? Eat bland, teth-ci-infgge foods in small amounts as you are able. These foods include bananas, applesauce, rice, lean meats, toast, and crackers. ? Avoid alcohol. ? Avoid spicy or fatty foods. Medicines ? Take ziiu-pwd-lcrgnps and prescription medicines only as told by your health care provider. ? If you were prescribed an antibiotic medicine, take it as told by your health care provider. Do not stop using the antibiotic even if you start to feel better. General instructions ? Wash your hands often using soap and water. If soap and water are not available, use a hand amplifier mechanic. Others in the household should wash their hands as well. Hands should be washed: ? After using the toilet or changing a diaper. ? Before preparing, cooking, or serving food. ? While caring for a sick person or while visiting someone in a hospital. ? Drink enough fluid to keep your urine pale yellow. ? Rest at home while you recover. ? Watch your condition for any changes. ? Take a warm bath to relieve any burning or pain from frequent prashant (more content not included)... Normal [facility] ED Patient Summaryon 023 ED Patient Summary [place] [id number] Patient Discharge Instructions Person Information Name: ABBEY GARCIA Age: 32 Years Arrival Date: 12/31/2022 12:30:51 Discharge Diagnosis: Abdominal pain; Diarrhea Primary Care Physician: Jaquan Paula Provider Information Primary Provider: Mateusz Garcia DO Advanced Casting Director:Lonnie Rios PA-C The exam and treatment you received in the Emergency Department were for an urgent problem and are not intended as complete care. It is important that you follow up with a doctor, nurse practitioner, or physician?s phlebotomy lab assistant for ongoing care. If your symptoms become worse or you do not improve as expected and you are unable to reach your usual health care provider, you should return to the Emergency Department. We are available 24 hours a day. ABBEY GARCIA has been given the following list of patient education materials, prescriptions and follow-up instructions: Follow-up Instructions: With: Address: When: Jaquan Morrow [address] [place] [address] [facility] () In 3 days 01/03/2023 In the event that this physician does not participate in your insurance network, please consult with your insurance company to find a nearby participating provider. Patient Education Materials: Diarrhea, Adult; Abdominal Pain, Adult A MESSAGE TO ALL PATIENTS REGARDING OPIOIDS PRESCRIPTION OPIOIDS: WHAT YOU NEED TO KNOW Prescription opioids can be used to help relieve clymixug-om-mlmubu pain and are often prescribed following a surgery or injury, or for certain health conditions. These medications can be an important part of the treatment but also come with serious risks. It is important to work with your healthcare provider to make sure you are getting the safest, most effective care. WHAT ARE THE RISKS AND SIDE EFFECTS OF OPIOID USE? Prescription opioids carry serious risks of addiction and overdose, especially with prolonged use. An opioid overdose, often marked by slowed breathing, can cause sudden . The use of prescription opioids can have a number of side effects as well, even when taken as directed: ? Tolerance?meaning you might need to take more of the medication for the same pain relief ? Physical dependence?meaning you have symptoms of withdrawal when a medication is stopped ? Increased sensitivity to pain ? Constipation ? Nausea, vomiting, and dry mouth ? Sleepiness and dizziness ? Confusion ? Depression ? Low levels of testosterone that can result in lower sex drive, energy, and strength ? Itching and sweating RISKS ARE GREATER WITH: ? History of drug misuse, substance use disorder, or overdose ? Mental health conditions (such as depression or anxiety) ? Sleep apnea ? Older age (65 years and older) ? Avoid alcohol while taking prescription opioids. Also, unless specifically advised by your health care provider, medications to avoid include: ? Benzodiazepines (such as Xanax or Valium) ? Muscle relaxants (such as Soma or Flexeril) ? Hypnotics (such as Ambien or Lunesta) ? Other prescription opioids KNOW YOUR OPTIONS Talk to your health care provider about ways to manage your pain that don?t involve prescription opioids. Some of these options may actually work better and have fewer risks and side effects. Options may include: ? Pain relievers such as acetaminophen, ibuprofen, and naproxen ? Some medication that are also used for depression or seizures ? Physical therapy and exercise ? Cognitive behavioral therapy, a psychological, goal-directed approach, in which patients learn how to modify physical, behavioral, and emotional triggers of pain and stress. IF YOU ARE PRESCRIBED OPIOIDS FOR PAIN: ? Never take opioids in greater amounts or more often than prescribed. ? Follow up with your primary health care provider. o Work together to create a plan on how to manage your pain. o Talk about ways to help manage your pain that don?t involve prescription opioids. o Talk about any and all concerns and side effects. ? Help prevent misuse and abuse o Never sell or share prescription opioids. o Never use another person?s prescription opioids. ? Store prescription opioids in a secure place and out of reach of others (this may include visitors, children, friends, and family). ? Safely dispose of unused prescription opioids: Find your community drug take-back program or your pharmacy mail-back program, or flush them down the toilet, following guidance from the Food and Drug Administration (www.fda.gov/Drugs/Res ourcesForYou). ? Visit www.cdc.gov/drugoverdo se to learn about the risks of opioids abuse and overdose. ? If you believe you may be struggling with addiction, tell your health healthcare associate and ask for guidance or call SAMHSA?S National Helpline at 7-620-345-EEDA. (more content not included)... Normal [facility] HEMATOLOGYOrdered By: SYSTEM SYSTEM on 12-31-2022 Basophils/100 WBC (Bld) 0.6 % Normal 0.0 - 2.0 % [facility] HemeAutoSS Basophils/Leukocytes Auto (Bld) [Pure # fraction] 0.0 E9/L Normal 0.0 - 0.2 E9/L [facility] HemeAutoSS Eosinophils/100 WBC (Bld) 0.4 % Normal 0.0 - 8.0 % [facility] HemeAutoSS Eosinophils/Leukocyte s Auto (Bld) [Pure # fraction] 0.0 E9/L Normal 0.0 - 0.5 E9/L [facility] HemeAutoSS Lymphocytes/100 WBC (Bld) 42.3 % Normal 14.0 - 50.0 % [facility] HemeAutoSS Lymphocytes/Leukocyte s Auto (Bld) [Pure # fraction] 1.9 E9/L Normal 1.0 - 4.0 E9/L [facility] HemeAutoSS Monocytes/100 WBC (Bld) 7.9 % Normal 4.0 - 14.0 % [facility] HemeAutoSS Monocytes/Leukocytes Auto (Bld) [Pure # fraction] 0.4 E9/L Normal 0.2 - 1.0 E9/L [facility] HemeAutoSS Neutrophils/100 WBC (Bld) 48.8 % Normal 36.0 - 75.0 % [facility] HemeAutoSS Neutrophils/Leukocyte s Auto (Bld) [Pure # fraction] 2.2 E9/L Normal 2.0 - 7.5 E9/L [facility] HemeAutoSS HEMATOLOGYOrdered By: Shannon osei on 12-31-2022 Erythrocyte distribution width (RBC) [Ratio] 13.9 % Normal 10.9 - 14.2 % [facility] HemeAutoSS Hematocrit (Bld) [Volume fraction] 35.5 % Normal 34.0 - 46.0 % [facility] HemeAutoSS Hemoglobin (Bld) [Mass/Vol] 12.2 g/dL Normal 12.0 - 16.0 gm/dL [facility] HemeAutoSS MCH (RBC) [Entitic mass] 30.8 pg Normal 27.0 - 34.0 pg [facility] HemeAutoSS MCHC (RBC) [Mass/Vol] 34.4 g/dL Normal 31.4 - 36.0 gm/dL [facility] HemeAutoSS MCV (RBC) [Entitic vol] 89.5 fL Normal 80.0 - 100.0 fL [facility] HemeAutoSS Platelet mean volume (Bld) [Entitic vol] 9.5 fL Normal 6.4 - 10.8 fL [facility] HemeAutoSS Platelets (Bld) [#/Vol] 177.0 E9/L Normal 150.0 - 500.0 E9/L [facility] HemeAutoSS RBC (Bld) [#/Vol] 4.0 E12/L Low 4.3 - 5.9 E12/L [facility] HemeAutoSS WBC corrected for nucl RBC Auto (Bld) [#/Vol] 4.4 E9/L Normal 4.0 - 11.0 E9/L [facility] HemeAutoSS Hep Func Panelon 12-31-2022 Albumin [Mass/Vol] 3.9 g/dL Normal 3.3-5.0 [facility] Comment on above: Performed By: #### 2 308639, 5779620, 72146338, 9457551, 19985122, 2508382, 0783894 ####[facility] [address] [place] [address] Albumin/Globulin (S) [Mass conc ratio] 1.3 Normal 1.1-2.2 [facility] Comment on above: Performed By: #### 2 066252, 4168590, 50520224, 1543041, 30920582, 4213753, 2682752 ####[facility] [address] [place] [address] ALP [Catalytic activity/Vol] 51 Int._Unit/L Normal 21-98 [facility] Comment on above: Performed By: #### 2 721456, 8315902, 39310895, 1093491, 30494514, 1045709, 5147629 ####[facility] [address] [place] [address] ALT No additional P-5'-P [Catalytic activity/Vol] 21 Int._Unit/L Normal 6-46 [facility] Comment on above: Performed By: #### 2 814984, 5553491, 32504332, 8895177, 14829643, 4180841, 3584149 ####[facility] [address] [place] [address] AST [Catalytic activity/Vol] 32 Int._Unit/L Normal 5-43 [facility] Comment on above: Performed By: #### 2 530951, 7116166, 49499395, 2376874, 99780497, 3639934, 1319566 ####[facility] [address] [place] [address] Bilirubin [Mass/Vol] 0.5 mg/dL Normal 0.0-1.1 [facility] Comment on above: Performed By: #### 2 827860, 0414850, 06913051, 7410459, 09618691, 0720760, 1946929 ####[facility] [address] [place] [address] Bilirubin.direct [Mass/Vol] 0.1 mg/dL Normal 0.1-0.4 [facility] Comment on above: Performed By: #### 2 942812, 4864496, 39315717, 0748497, 02079230, 3235291, 8515802 ####[address] [address] Bilirubin.indirect [Mass or moles/Vol] 0.4 mg/dL Normal 0.1-0.9 [facility] Comment on above: Performed By: #### 2 691033, 1548399, 79757500, 8851012, 22394974, 9847862, 8266475 ####[address] [address] Globulin (S) [Mass/Vol] 2.9 g/dL Normal 1.4-4.0 [facility] Comment on above: Performed By: #### 2 265440, 8430389, 14564717, 8928548, 51142669, 3731177, 6145101 ####[facility] [address] [place] [address] Protein [Mass/Vol] 6.8 g/dL Normal 6.0-7.8 [facility] Comment on above: Performed By: #### 2 082520, 6458233, 34518611, 5309505, 35949938, 7854023, 2154386 ####[facility] [address] [place] [address] Lipase Levelon 12-31-2022 Lipase [Catalytic activity/Vol] 49 U/L Normal 13-58 [facility] Comment on above: Performed By: #### 2 878121, 7125544, 96561958, 7451179, 34703149, 5722555, 0031070 ####[facility] [address] [place] [address] SEROLOGYOrdered By: Stacia Blair on 12-31-2022 Beta HCG ( test) Ql Negative (12/31/22 1:16 PM) Normal [facility] Man Sero UA With Cult Reflexon 2022 Bilirubin Ql (U) Negative Normal Negative [facility] Comment on above: Performed By: #### 1 3557415 ####[address] [address] Clarity (U) CLEAR Normal Clear [facility] Comment on above: Performed By: #### 1 [id number] ####[facility] [address] [place] [address] Color (U) YELLOW Normal Yellow [facility] Comment on above: Performed By: #### 1 6886616 ####[address] [address] Epithelial cells.squamous LM.HPF (Urine sed) [#/Area] 0-2 Normal 0-2 [facility] Comment on above: Performed By: #### 1 3059015 ####[facility] [address] [place] [address] Glucose Test strip (U) [Mass/Vol] Negative Normal Negative [facility] Comment on above: Performed By: #### 1 1972121 ####[address] [address] Hemoglobin Ql (U) Negative Normal Negative [facility] Comment on above: Performed By: #### 1 4813814 ####[facility] [address] [place] [address] [place] [address] Ketones (U) [Mass/Vol] Negative Normal Negative [facility] Comment on above: Performed By: #### 1 3161015 ####[address] [address] Aneth.plasma/Lithiu m.RBC (Bld) [Mass ratio] 0-3 Normal 0-3 [facility] Comment on above: Performed By: #### 1 1504725 ####[address] [address] Mucus Ql (Urine sed) TRACE Normal [facility] Comment on above: Performed By: #### 1 0725135 ####[address] [address] Nitrite Ql (U) Negative Normal Negative [facility] Comment on above: Performed By: #### 1 7878187 ####[address] [address] pH (U) 6.0 [pH] Invalid Interpretation Code 5.0-9.0 [facility] Comment on above: Performed By: #### 1 2903754 ####[address] [address] Protein (U) [Mass/Vol] Negative Normal Negative [facility] Comment on above: Performed By: #### 1 9298709 ####[address] [address] Specific gravity (U) [Rel density] 1.015 Invalid Interpretation Code 1.005-1.030 [facility] Comment on above: Performed By: #### 1 1428450 ####[address] [address] Type of Urine collection method Clean Catch Normal [facility] Comment on above: Performed By: #### 1 6763998 ####[address] [address] Urobilinogen Qn (U) 0.2 {Munir'U}/dL Normal 0.0-1.0 [facility] Comment on above: Performed By: #### 1 0384834 ####[facility] [address] [place] [address] WBC Auto Ql (U) Negative Normal Negative [facility] Comment on above: Performed By: #### 1 8659740 ####[facility] [address] [place] [address] WBC LM.HPF (Urine sed) [#/Area] 0-5 Normal 0-5 [facility] Comment on above: Performed By: #### 1 1066617 ####[facility] [address] [place] [address] URINALYSISOrdered By: Marlene Blair on 12-31-2022 Bilirubin Ql (U) Negative (12/31/22 1:16 PM) Normal Negative [facility] UA Auto SS Clarity (U) Clear (12/31/22 1:16 PM) Normal Clear [facility] UA Auto SS Color (U) Yellow (12/31/22 1:16 PM) Normal Yellow [facility] UA Auto SS Epithelial cells.squamous LM.HPF (Urine sed) [#/Area] 0-2 /HPF Normal 0-2/HPF [facility] UA Aut o SS Glucose Test strip (U) [Mass/Vol] Negative (12/31/22 1:16 PM) Normal Negative [facility] UA Auto SS Hemoglobin Ql (U) Negative (12/31/22 1:16 PM) Normal Negative [facility] UA Auto SS Ketones (U) [Mass/Vol] Negative (12/31/22 1:16 PM) Normal Negative [facility] UA Auto SS Aneth.plasma/Lithiu m.RBC (Bld) [Mass ratio] 0-3 /HPF Normal 0-3/HPF [facility] UA Auto SS Mucus Ql (Urine sed) Trace (12/31/22 1:16 PM) Normal [facility] UA Auto SS Nitrite Ql (U) Negative (12/31/22 1:16 PM) Normal Negative [facility] UA Auto SS pH (U) 6.0 *NA* (12/31/22 1:16 PM) Invalid Interpretation Code 5.0 - 9.0 [facility] UA Auto SS Protein (U) [Mass/Vol] Negative (12/31/22 1:16 PM) Normal Negative [facility] UA Auto SS Specific gravity (U) [Rel density] 1.015 *NA* (12/31/22 1:16 PM) Invalid Interpretation Code 1.005 - 1.030 [facility] UA Auto SS UA Spec Desc Clean Catch (12/31/22 1:16 PM) Normal [facility] UA Auto SS Urobilinogen Qn (U) 0.2371340 {Munir'U}/dL Normal 0.0 - 1.0 EU/dL [facility] UA Auto SS WBC Auto Ql (U) Negative (12/31/22 1:16 PM) Normal Negative [facility] UA Auto SS WBC LM.HPF (Urine sed) [#/Area] 0-5 /HPF Normal 0-5/HPF [facility] UA Auto SS eGFRon 12-31-2022 GFR/1.73 sq M.predicted among non-blacks MDRD (S/P/Bld) [Vol rate/Area] 100 mL/min/1.73 m2 Normal >=59 [facility] Comment on above: Order Comment: Order added by Discern Expert. Result Comment: Electromechanical Inspector yrn kidney disease could be indicated at eGFR's of less than 60 mL/min/1.73m2. Kidney failure is indicated at less than 15 mL/min/1.73m2. Performed By: #### 2 957347, 7335241, 70679580, 1738180, 23897911, 3974218, 6541357 ####[facility] [address] [place] [address] Family Medicine Office/Clini c Noteon 12-29-2022 Family Medicine Office/Clinic Note HPI Staff Abbey is a 32 year old female presenting for acute visit Respiratory C/O: Onset: 4 days Body aches: no Chest congestion: yes Chills: no Cough: yes Sputum production: yes thick white Sore throat: no Ear complaints: no pressure Eye itching/watering: no Fever: no Headache: no Nasal congestion: yes Nasal discharge: no Poor appetite: no Reduced activity: no Sinus pain/pressure: no Sneezing: no Wheezing: no Ill contacts: no Remedies tried: Completed Tramadol no longer taking Questions/Concerns: had body aches Wednesday/Wednesday History of Present Illness pt presents today with cough and congestion. Review of Systems PHQ Score Initial Depression Screen Score: 0 SCORE ROS - Provider Constitutional: no fever, no chills, no sweats, no fatigue Respiratory: no shortness of breath, yes cough, no orthopnea, no wheezing. Cardiovascular: no chest pain, no palpitations, no edema. Neurologic: no headache, no dizziness, no numbness, no weakness. Physical Exam Vitals & Measurements T: 37.3 ?C(Tympanic) HR: 88(Peripheral) RR: 18 BP: 140/98 HT: 66 in HT: 168 cm WT: 83.8 kg WT: 184.36 lb BMI: 29.69 General: alert, no acute distress ENMT: oral mucosa moist, no pharyngeal erythema or exudate Cardiovascular: regular rate and rhythm, normal peripheral perfusion Respiratory: Lungs CTA, respirations non labored Extremities: no deformity, no trauma Neurological: oriented x 4, LOC appropriate for age, CN II-XII intact, motor strength equal & normal bilaterally, speech normal Assessment/Plan 1. Bronchitis (J40: Bronchitis, not specified as acute or chronic) pt presents today with c/o worsening cough. pt states she gets this once a year. nasal congestion. fatigue. will treat with medrol dose pack, z lalito and tessalon pearls. right ear is also red in office today. all questions answered. pt is scheduled for nerve block for MAL in January. 2. BMI 29.0-29.9,adult (Z68.29: Body mass index [BMI] 29.0-29.9, adult) bmi education complete Ordered: azithromycin, = 1 packet(s), Oral, As Directed, as directed on package labeling, X 5 day(s), # 6 tab(s), Refills(s) 0, Pharmacy: [facility]/pharmacy #[id number], 168, cm, 12/29/22 15:01:00 EST, Height/Length Dosing, 83.8, kg, 12/29/22 15:01:00 EST, Weight Dosing benzonatate, 200 mg = 1 cap(s), Oral, TID, X 7 day(s), # 21 cap(s), Refills(s) 0, Pharmacy: [facility]/pharmacy #[id number], 168, cm, 12/29/22 15:01:00 EST, Height/Length Dosing, 83.8, kg, 12/29/22 15:01:00 EST, Weight Dosing methylPREDNISolone, = 1 packet(s), Oral, As Directed, as directed on package labeling, X 6 day(s), # 21 tab(s), Refills(s) 0, [id number], 168, cm, 12/29/22 15:01:00 EST, Height/Length Dosing, 83.8, kg, 12/29/22 15:01:00 EST, Weight Dosing 3. Non-smoker (Z78.9: Other specified health status) continue not smoking Ordered: azithromycin, = 1 packet(s), Oral, As Directed, as directed on package labeling, X 5 day(s), # 6 tab(s), Refills(s) 0, [id number], 168, cm, 12/29/22 15:01:00 EST, Height/Length Dosing, 83.8, kg, 12/29/22 15:01:00 EST, Weight Dosing benzonatate, 200 mg = 1 cap(s), Oral, TID, X 7 day(s), # 21 cap(s), Refills(s) 0, [id number], 168, cm, 12/29/22 15:01:00 EST, Height/Length Dosing, 83.8, kg, 12/29/22 15:01:00 EST, Weight Dosing methylPREDNISolone, = 1 packet(s), Oral, As Directed, as directed on package labeling, X 6 day(s), # 21 tab(s), Refills(s) 0, [id number], 168, cm, 12/29/22 15:01:00 EST, Height/Length Dosing, 83.8, kg, 12/29/22 15:01:00 EST, Weight Dosing Orders: tramadol, 50 mg = 1 tab(s), Oral, q8hr, PRN Pain, # 30 tab(s), Refills(s) 0, [id number], 168, cm, 11/25/22 11:03:00 EDT, Height/Length Dosing, 82.5, kg, 11/25/22 11:03:00 EDT, Weight Dosing Follow-up No qualifying data available Problem List/Past Medical History Ongoing Abnormal thyroid blood test Arthritis Asthma BMI 30.0-30.9,adult Bronchitis Depression Dysfunction of sphincter of Oddi Fatigue Gall stone Hyperthyroidism Hypothyroid Kidney cysts Kidney stone LUQ pain Malnourished Median arcuate ligament syndrome Mixed incontinence urge and stress Nausea Rash of body Renal cyst Right flank pain Status post surgery Historical Allergic rhinitis Anemia Hypothyroidism Metabolic syndrome PCOS- polycystic ovary syndrome Procedure/Surgical History Endoscopic retrograde cholangiopancreatograp hy (ERCP); diagnostic, including collection of specimen(s) by brushing or washing, when performed (separate procedure) (11/11/2022), Laparoscopy, abdomen, peritoneum, and omentum, diagnostic, with or without collection of specimen(s) by brushing or washing (separate procedure) (11/11/2022), Esophagogastroduodenos copy, flexible, transoral; diagnostic, including collection of specimen(s) by brushing or washing, when performed (separate procedure) (10/27/2022), Revision (01/29/2022), Gastric sleeve ( (more content not included)... [facility] Comment on above: Result Comment: Elec tronically Signed By: Jaquan Paula\.br\Date and Time Signed: 12/29/22 15:35 EST Provider Letteron 12-29-2022 Provider Letter December 29, 2022 [address] [place] [phone] : 1990 To Whom It May Concern, Please excuse above patient from work due to doctors appt. with AGA Diehl @ 2:40 p.m. Date of Illness: From: _ To: _ May Return to Work On:12-30-22 Restrictions: _ Comments: _ Sincerely, [place] [address] [facility] CNCOon 12-28-2022 CNCO Letter Text [facility] CNPNon 12-28-2022 CNPN [facility] CNCOon 12-25-2022 CNCO Letter Text [facility] CNPNon 11-08-2023 CNPN [facility] CBC With Platelet and Differ entialon 12-14-2022 Basophils (Bld) [#/Vol] 0.0 10*3/uL Normal 0.0-0.2 [facility] Comment on above: Performed By: #### L IPAS #### [facility] [address] [place] [address] Basophils/100 WBC (Bld) 0.9 % Normal [facility] Comment on above: Performed By: #### L IPAS #### [facility] [address] [place] [address] Eosinophils (Bld) [#/Vol] 0.2 10*3/uL Normal 0.0-0.7 [facility] Comment on above: Performed By: #### L IPAS #### [facility] [address] [place] [address] Eosinophils/100 WBC (Bld) 4.0 % Normal [facility] Comment on above: Performed By: #### L IPAS #### [facility] [address] [place] [address] Erythrocyte distribution width (RBC) [Ratio] 13.2 % Normal 11.5-14.5 [facility] Comment on above: Performed By: #### L IPAS #### [facility] [address] [place] [address] Hematocrit (Bld) [Volume fraction] 36.5 % Low 37.0-47.0 [facility] Comment on above: Performed By: #### L IPAS #### [facility] [address] [place] [address] Hemoglobin (Bld) [Mass/Vol] 12.4 g/dL Normal 12.0-16.0 [facility] Comment on above: Performed By: #### L IPAS #### [facility] [address] [place] [address] Lymphocytes (Bld) [#/Vol] 1.7 10*3/uL Normal 1.0-4.8 [facility] Comment on above: Performed By: #### L IPAS #### [facility] [address] [place] [address] Lymphocytes/100 WBC (Bld) 40.7 % Normal [facility] Comment on above: Performed By: #### L IPAS #### [facility] [address] [place] [address] MCH (RBC) [Entitic mass] 31.0 pg Normal 27.0-31.3 [facility] Comment on above: Performed By: #### L IPAS #### [facility] [address] [place] [address] MCHC 34.0 % Normal 33.0-37.0 [facility] Comment on above: Performed By: #### L IPAS #### [facility] [address] [place] [address] MCV (RBC) [Entitic vol] 91.3 fL Normal 79.4-94.8 [facility] Comment on above: Performed By: #### L IPAS #### [facility] [address] [place] [address] Monocytes (Bld) [#/Vol] 0.3 10*3/uL Normal 0.2-0.8 [facility] Comment on above: Performed By: #### L IPAS #### [facility] [address] [place] [address] Monocytes/100 WBC (Bld) 7.7 % Normal [facility] Comment on above: Performed By: #### L IPAS #### [facility] [address] [place] [address] Neutrophils (Bld) [#/Vol] 2.0 10*3/uL Normal 1.4-6.5 [facility] Comment on above: Performed By: #### L IPAS #### [facility] [address] [place] [address] Neutrophils/100 WBC (Bld) 46.5 % Normal [facility] Comment on above: Performed By: #### L IPAS #### [facility] [address] [place] [address] Platelets (Bld) [#/Vol] 187 10*3/uL Normal 130-400 [facility] Comment on above: Performed By: #### L IPAS #### [facility] [address] [place] [address] RBC (Bld) [#/Vol] 4.00 10*6/uL Low 4.20-5.40 [facility] Comment on above: Performed By: #### L IPAS #### [facility] [address] [place] [address] WBC (Bld) [#/Vol] 4.3 10*3/uL Low 4.8-10.8 [facility] Comment on above: Performed By: #### L IPAS #### [facility] [address] [place] [address] CTA ABDOMEN PELVIS W WO CONT RASTon 12-14-2022 CTA ABDOMEN PELVIS W WO CONTRAST EXAMINATION: CTA OF THE ABDOMEN AND PELVIS WITH AND WITHOUT CONTRAST 12/14/2022 1:08 pm: TECHNIQUE: CTA of the abdomen and pelvis was performed without and with the administration of intravenous contrast. Multiplanar reformatted images are provided for review. MIP images are provided for review. Automated exposure control, iterative reconstruction, and/or weight based adjustment of the mA/kV was utilized to reduce the radiation dose to as low as reasonably achievable. COMPARISON: 11/27/2022 HISTORY: ORDERING SYSTEM PROVIDED HISTORY: intractable vomoting, celiac artery hx? TECHNOLOGIST PROVIDED HISTORY: Reason for exam:->intractable vomoting, celiac artery hx? Decision Support Exception - unselect if not a suspected or confirmed emergency medical condition->Emergency Medical Condition (MA) What reading provider will be dictating this exam?->CRC FINDINGS: No acute or concerning findings in the lower chest. No pneumoperitoneum. Few scattered small hypodensities in the liver too small to further characterize but statistically benign in the absence of a known malignancy. Fatty liver suspected. Cholecystectomy. Spleen, pancreas, adrenal glands, kidneys unremarkable. Nonobstructive bowel gas pattern. Appendix not definitively seen but no evidence of appendicitis. Previous bariatric procedure. Nonaneurysmal aorta. Major visceral arterial structures widely patent and unremarkable. Hysterectomy. Pelvis otherwise unremarkable. No acute osseous findings or destructive bone lesions. IMPRESSION: No acute process identified. Interpreted by: Addison Lorenzo MD Signed by: Addison Lorenzo MD 12/14/22 Final result Normal [facility] Comprehensive Metabolic Pane nestor 12-14-2022 Albumin [Mass/Vol] 4.0 g/dL Normal 3.5-4.6 [facility] Comment on above: Performed By: #### L IPAS #### [facility] [address] [place] [address] ALP [Catalytic activity/Vol] 70 U/L Normal 40-130 [facility] Comment on above: Performed By: #### L IPAS #### [facility] [address] [place] [address] ALT [Catalytic activity/Vol] 20 U/L Normal 0-33 [facility] Comment on above: Performed By: #### L IPAS #### [facility] [address] [place] [address] Anion gap [Moles/Vol] 16 mmol/L Critically high 9-15 [facility] Comment on above: Performed By: #### L IPAS #### [facility] [address] [place] [address] AST [Catalytic activity/Vol] 33 U/L Normal 0-35 [facility] Comment on above: Performed By: #### L IPAS #### [facility] [address] [place] [address] Bilirubin [Mass/Vol] 0.3 mg/dL Normal 0.2-0.7 [facility] Comment on above: Performed By: #### L IPAS #### [facility] [address] [place] [address] Calcium [Mass/Vol] 8.8 mg/dL Normal 8.5-9.9 [facility] Comment on above: Performed By: #### L IPAS #### [facility] [address] [place] [address] Chloride [Moles/Vol] 107 mmol/L Normal 95-107 [facility] Comment on above: Performed By: #### L IPAS #### [facility] [address] [place] [address] CO2 [Moles/Vol] 20 mmol/L Normal 20-31 [facility] Comment on above: Performed By: #### L IPAS #### [facility] [address] [place] [address] Creatinine [Mass/Vol] 0.75 mg/dL Normal 0.50-0.90 [facility] Comment on above: Performed By: #### L IPAS #### [facility] [address] [place] [address] GFR >60.0 Normal >60 [facility] Comment on above: Result Comment: Pedi atric calculator link https://www.kidney.org/professionals/kdoqi/gfr_calculatorped Effective Nov 17, 2021 These results are not intended for use in patients <18 years of age. eGFR results are calculated without a race factor using the 2020 CKD-EPI equation. Careful clinical correlation is recommended, particularly when comparing to results calculated using previous equations. The CKD-EPI equation is less accurate in patients with extremes of muscle mass, extra-renal metabolism of creatinine, excessive creatinine ingestion, or following therapy that affects renal tubular secretion. Performed By: #### L IPAS #### [facility] [address] [place] [address] Globulin (S) [Mass/Vol] 2.5 g/dL Normal 2.3-3.5 [facility] Comment on above: Performed By: #### L IPAS #### [facility] [address] [place] [address] Glucose [Mass/Vol] 88 mg/dL Normal 70-99 [facility] Comment on above: Performed By: #### L IPAS #### [facility] [address] [place] [address] Potassium [Moles/Vol] 3.8 mmol/L Normal 3.4-4.9 [facility] Comment on above: Performed By: #### L IPAS #### [facility] [address] [place] [address] Protein [Mass/Vol] 6.5 g/dL Normal 6.3-8.0 [facility] Comment on above: Performed By: #### L IPAS #### [facility] [address] [place] [address] Sodium [Moles/Vol] 143 mmol/L Normal 135-144 [facility] Comment on above: Performed By: #### L IPAS #### [facility] [address] [place] [address] Urea nitrogen [Mass/Vol] 11 mg/dL Normal 6-20 [facility] Comment on above: Performed By: #### L IPAS #### [facility] [address] [place] [address] Lipaseon 12-14-2022 Lipase [Catalytic activity/Vol] 39 U/L Normal 12-95 [facility] Comment on above: Performed By: #### L IPAS #### [facility] [address] [place] [address] POCT Venouson 12-14-2022 Creatinine [Mass/Vol] 0.8 mg/dL Normal 0.6-1.2 [facility] Comment on above: Performed By: #### P GLU #### [facility] [address] [place] [address] GFR >60 Normal >60 [facility] Comment on above: Result Comment: Adán atric calculator link https://www.kidney.org/professionals/kdoqi/gfr_calculatorped Effective Nov 17, 2021 These results are not intended for use in patients <18 years of age. eGFR results are calculated without a race factor using the 2020 CKD-EPI equation. Careful clinical correlation is recommended, particularly when comparing to results calculated using previous equations. The CKD-EPI equation is less accurate in patients with extremes of muscle mass, extra-renal metabolism of creatinine, excessive creatinine ingestion, or following therapy that affects renal tubular secretion. Performed By: #### P GLU #### [facility] [address] [place] [address] POC Performed on SEE BELOW Normal [facility] Comment on above: Result Comment: Perf ormed on POC Performed By: #### P GLU #### [facility] [address] [place] [address] POC Sample Type KIRA Normal [facility] Comment on above: Performed By: #### P GLU #### [facility] [address] [place] [address] CNCOon 12-10-2022 CNCO Letter Text Normal [facility] ALLIED HEALTHon 12-09-2022 ALLIED HEALTH Normal [facility] CASE MANAGEMon 12-09-2022 CASE MANAGEM Normal [facility] CBC panel Auto (Bld)on 12-09 Erythrocyte distribution width (RBC) [Ratio] 13.5 % Normal 11.5-15.0 [facility] Comment on above: Order Comment: Speci men Type: BLOOD SPECIMENOrdering Facility: [facility] Address: [address] [place] [address] Performed By: #### 5 8410-2 ####[facility] LABCLIA [id number] [place] [address] [place] Hematocrit (Bld) [Volume fraction] 34.9 % Low 36.0-46.0 [facility] Comment on above: Order Comment: Speci men Type: BLOOD SPECIMENOrdering Facility: [facility] Address: [address] [place] [address] Performed By: #### 5 8410-2 ####[facility] LABCLIA [id number] [place] [address] [place] Hemoglobin (Bld) [Mass/Vol] 11.7 g/dL Normal 11.5-15.5 [facility] Comment on above: Order Comment: Speci men Type: BLOOD SPECIMENOrdering Facility: [facility] Address: [address] [place] [address] Performed By: #### 5 8410-2 ####[facility] LABCLIA [id number] [place] [address] [place] MCH (RBC) [Entitic mass] 31.0 pg Normal 26.0-34.0 [facility] Comment on above: Order Comment: Speci men Type: BLOOD SPECIMENOrdering Facility: [facility] Address: [address] [place] [address] Performed By: #### 5 8410-2 ####[facility] LABIA [id number] [place] [address] [place] MCHC (RBC) [Mass/Vol] 33.5 g/dL Normal 30.5-36.0 [facility] Comment on above: Order Comment: Speci men Type: BLOOD SPECIMENOrdering Facility: [facility] Address: [address] [place] [address] Performed By: #### 5 8410-2 ####[facility] LABIA [id number] [place] [address] [place] MCV (RBC) [Entitic vol] 92.3 fL Normal 80.0-100.0 [facility] Comment on above: Order Comment: Speci men Type: BLOOD SPECIMENOrdering Facility: [facility] Address: [address] [place] [address] Performed By: #### 5 8410-2 ####[facility] LABIA [id number] [place] [address] [place] Nucleated RBC (Bld) [#/Vol] 10*3/uL Normal <0.01 [facility] Comment on above: Order Comment: Speci men Type: BLOOD SPECIMENOrdering Facility: [facility] Address: [address] [place] [address] Performed By: #### 5 8410-2 ####[facility] LABCLIA [id number] [place] [address] [place] Platelet mean volume (Bld) [Entitic vol] 12.6 fL Normal 9.0-12.7 [facility] Comment on above: Order Comment: Speci men Type: BLOOD SPECIMENOrdering Facility: [facility] Address: [address] [place] [address] Performed By: #### 5 8410-2 ####[facility] LABIA [id number] [place] [address] [place] Platelets (Bld) [#/Vol] 172 10*3/uL Normal 150-400 [facility] Comment on above: Order Comment: Speci men Type: BLOOD SPECIMENOrdering Facility: [facility] Address: [address] [place] [address] Performed By: #### 5 8410-2 ####[facility] LABIA [id number] [place] [address] [place] RBC (Bld) [#/Vol] 3.78 10*6/uL Low 3.90-5.20 [facility] Comment on above: Order Comment: Speci men Type: BLOOD SPECIMENOrdering Facility: [facility] Address: [address] [place] [address] Performed By: #### 5 8410-2 ####[facility] LABIA [id number] [place] [address] [place] WBC (Bld) [#/Vol] 3.25 10*3/uL Low 3.70-11.00 [facility] Comment on above: Order Comment: Speci men Type: BLOOD SPECIMENOrdering Facility: [facility] Address: [address] [place] [address] Performed By: #### 5 8410-2 ####[facility] LABIA [id number] [place] [address] [place] CNDSon 12-09-2022 CNDS Normal [facility] CNPNon 12-09-2022 CNPN Normal [facility] CONSULT PROGon 12-09-2022 CONSULT PROG Normal [facility] Comprehensive metabolic 2000 panelon 12-09-2022 Albumin [Mass/Vol] 3.6 g/dL Low 3.9-4.9 [facility] Comment on above: Order Comment: Speci men Type: BLOOD SPECIMENOrdering Facility: [facility] Address: [address] [place] [address] Performed By: #### 2 4323-8, , 2776-02 ####[facility] LABCLIA [id number] [place] [address] [place] ALP [Catalytic activity/Vol] 59 U/L Normal 34-123 [facility] Comment on above: Order Comment: Speci men Type: BLOOD SPECIMENOrdering Facility: [facility] Address: [address] [place] [address] Performed By: #### 2 4323-8, , 2776-02 ####[facility] LABCLIA [id number] [place] [address] [place] ALT [Catalytic activity/Vol] 13 U/L Normal 7-38 [facility] Comment on above: Order Comment: Speci men Type: BLOOD SPECIMENOrdering Facility: [facility] Address: [address] [place] [address] Performed By: #### 2 4323-8, , 2776-02 ####[facility] LABCLIA [id number] [address] [address] [place] Anion gap [Moles/Vol] 9 mmol/L Normal 9-18 [facility] Comment on above: Order Comment: Speci men Type: BLOOD SPECIMENOrdering Facility: [facility] Address: [address] [place] [address] Performed By: #### 2 4323-8, , 2776- ####[facility] LABCLIA [id number] [address] [address] [place] AST [Catalytic activity/Vol] 22 U/L Normal 13-35 [facility] Comment on above: Order Comment: Speci men Type: BLOOD SPECIMENOrdering Facility: [facility] Address: [address] [place] [address] Performed By: #### 2 4323-8, , 2776-02 ####[facility] LABCLIA [id number] [place] [address] [place] Bilirubin [Mass/Vol] 0.2 mg/dL Normal 0.2-1.3 [facility] Comment on above: Order Comment: Speci men Type: BLOOD SPECIMENOrdering Facility: [facility] Address: [address] [place] [address] Performed By: #### 2 4323-8, , 2776-02 ####[facility] LABIA [id number] [place] [address] [place] Calcium [Mass/Vol] 8.7 mg/dL Normal 8.5-10.2 [facility] Comment on above: Order Comment: Speci men Type: BLOOD SPECIMENOrdering Facility: [facility] Address: [address] [place] [address] Performed By: #### 2 4323-8, , 2776-02 ####[facility] LABCLIA [id number] [place] [id number] [place] Chloride [Moles/Vol] 108 mmol/L High 97-105 [facility] Comment on above: Order Comment: Speci men Type: BLOOD SPECIMENOrdering Facility: [facility] Address: [address] [place] [address] Performed By: #### 2 4323-8, , 2776-02 ####[facility] LABCLIA [id number] [place] [address] [place] CO2 [Moles/Vol] 23 mmol/L Normal 22-30 [facility] Comment on above: Order Comment: Speci men Type: BLOOD SPECIMENOrdering Facility: [facility] Address: [address] [place] [address] Performed By: #### 2 4323-8, , 2776-02 ####[facility] LABCLIA [id number] [place] [address] [place] Creatinine [Mass/Vol] 0.61 mg/dL Normal 0.58-0.96 [facility] Comment on above: Order Comment: Speci men Type: BLOOD SPECIMENOrdering Facility: [facility] Address: [address] [place] [address] Performed By: #### 2 4323-8, , 2776-02 ####[facility] LABIA [id number] [place] [address] [place] Creatinine and Glomerular filtration rate.predicted panel (S/P/Bld) 121 mL/min/1.73m??? Normal >=60 [facility] Comment on above: Order Comment: Geraldo marrero Type: BLOOD SPECIMENOrdering Facility: [facility] Address: [address] [place] [address] Result Comment: Rashmi mated Glomerular Filtration Rate (eGFR) is calculated using the 2020 CKD-EPI creatinine equation. This equation utilizes serum creatinine, sex, and age as parameters. The creatinine assay has traceable calibration to isotope dilution-mass spectrometry. Refer to KDIGO guidelines for clinical interpretation. In patients with unstable renal function, e.g. those with acute kidney injury, the eGFR may not accurately reflect actual GFR. Performed By: #### 2 4323-8, , 2776-02 ####[facility] LABCLIA [id number] [place] [id number] [place] Glucose [Mass/Vol] 79 mg/dL Normal 74-99 [facility] Comment on above: Order Comment: Speci men Type: BLOOD SPECIMENOrdering Facility: [facility] Address: [address] [facility] [place] [id number] Result Comment: The [place] [employer] (ADA) provides guidance for cutoff values for fasting glucose and random glucose. The ADA defines fasting as no caloric intake for at least 8 hours. Fasting plasma glucose results between 100 to 125 mg/dL indicate increased risk for diabetes (prediabetes).Fasting plasma glucose results greater than or equal to 126 mg/dL meet the criteria for diagnosis of diabetes. In the absence of unequivocal hyperglycemia, results should be confirmed by repeat testing. In a patient with classic symptoms of hyperglycemia or hyperglycemic crisis, random plasma glucose results greater than or equal to 200 mg/dL meet the criteria for diagnosis of diabetes.Reference: Standards of Medical Care in Diabetes 2016, [place] [employer]. Diabetes Care. 2016.39(Suppl 1). Performed By: #### 2 4323-8, , 2776-02 ####[facility] LABCLIA [id number] [place] [address] [place] Potassium [Moles/Vol] 4.2 mmol/L Normal 3.7-5.1 [facility] Comment on above: Order Comment: Speci men Type: BLOOD SPECIMENOrdering Facility: [facility] Address: [place] [id number] Performed By: #### 2 4323-8, , 2776-02 ####[facility] LABCLIA [id number] [place] [address] [place] Protein [Mass/Vol] 5.8 g/dL Low 6.3-8.0 [facility] Comment on above: Order Comment: Speci men Type: BLOOD SPECIMENOrdering Facility: [facility] Address: [address] [place] [phone] Performed By: #### 2 4323-8, , 2776-02 ####[facility] LABCLIA [id number] [address] [address] [place] Sodium [Moles/Vol] 140 mmol/L Normal 136-144 [facility] Comment on above: Order Comment: Speci men Type: BLOOD SPECIMENOrdering Facility: [facility] Address: [address] [place] [address] Performed By: #### 2 4323-8, , 2776-02 ####[facility] LABCLIA [id number] [address] [address] [place] Urea nitrogen [Mass/Vol] 16 mg/dL Normal 7-21 [facility] Comment on above: Order Comment: Speci men Type: BLOOD SPECIMENOrdering Facility: [facility] Address: [address] [place] [address] Performed By: #### 2 4323-8, , 2776-02 ####[facility] LABCLIA [id number] [place] [address] [place] Magnesium SerPl-ncon 12-09 Magnesium [Mass/Vol] 2.0 mg/dL Normal 1.7-2.3 [facility] Comment on above: Order Comment: Speci men Type: BLOOD SPECIMENOrdering Facility: [facility] Address: [address] [place] [address] Performed By: #### 2 4323-8, , 2776-02 ####[facility] LABCLIA [id number] [place] [id number] [place] NURSING PROGon 12-09-2022 NURSING PROG Normal [facility] PT EDon 12-09-2022 PT ED Normal [facility] Phosphate SerPl-mCncon 12-09 Phosphate [Mass/Vol] 1.8 mg/dL Low 2.7-4.8 [facility] Comment on above: Order Comment: Speci men Type: BLOOD SPECIMENOrdering Facility: [facility] Address: [address] [place] [phone] Result Comment: Resu lt rechecked. Performed By: #### 2 4323-8, , 2776-02 ####[facility] LABCLIA [id number] [place] [address] [place] ALLIED HEALTHon 12-08-2022 ALLIED HEALTH Normal [facility] CBC panel Auto (Bld)on 12-08 Erythrocyte distribution width (RBC) [Ratio] 13.4 % Normal 11.5-15.0 [facility] Comment on above: Order Comment: Speci men Type: BLOOD SPECIMENOrdering Facility: [facility] Address: [address] [place] [address] Performed By: #### 5 8410-2 ####[facility] LABIA [id number] [place] [address] [place] Hematocrit (Bld) [Volume fraction] 32.5 % Low 36.0-46.0 [facility] Comment on above: Order Comment: Speci men Type: BLOOD SPECIMENOrdering Facility: [facility] Address: [address] [place] [address] Performed By: #### 5 8410-2 ####[facility] LABIA [id number] [place] [address] [place] Hemoglobin (Bld) [Mass/Vol] 11.1 g/dL Low 11.5-15.5 [facility] Comment on above: Order Comment: Speci men Type: BLOOD SPECIMENOrdering Facility: [facility] Address: [address] [place] [address] Performed By: #### 5 8410-2 ####[facility] LABIA [id number] [place] [address] [place] MCH (RBC) [Entitic mass] 31.2 pg Normal 26.0-34.0 [facility] Comment on above: Order Comment: Speci men Type: BLOOD SPECIMENOrdering Facility: [facility] Address: [address] [place] [address] Performed By: #### 5 8410-2 ####[facility] LABIA [id number] [place] [address] [place] MCHC (RBC) [Mass/Vol] 34.2 g/dL Normal 30.5-36.0 [facility] Comment on above: Order Comment: Speci men Type: BLOOD SPECIMENOrdering Facility: [facility] Address: [address] [place] [address] Performed By: #### 5 8410-2 ####[facility] LABCLIA [id number] [place] [address] [place] MCV (RBC) [Entitic vol] 91.3 fL Normal 80.0-100.0 [facility] Comment on above: Order Comment: Speci men Type: BLOOD SPECIMENOrdering Facility: [facility] Address: [address] [place] [address] Performed By: #### 5 8410-2 ####[facility] LABCLIA [id number] [place] [address] [place] Nucleated RBC (Bld) [#/Vol] 10*3/uL Normal <0.01 [facility] Comment on above: Order Comment: Speci men Type: BLOOD SPECIMENOrdering Facility: [facility] Address: [address] [place] [address] Performed By: #### 5 8410-2 ####[facility] LABCLIA [id number] [place] [address] [place] Platelet mean volume (Bld) [Entitic vol] 12.4 fL Normal 9.0-12.7 [facility] Comment on above: Order Comment: Speci men Type: BLOOD SPECIMENOrdering Facility: [facility] Address: [address] [place] [address] Performed By: #### 5 8410-2 ####[facility] LABCLIA [id number] [place] [address] [place] Platelets (Bld) [#/Vol] 161 10*3/uL Normal 150-400 [facility] Comment on above: Order Comment: Speci men Type: BLOOD SPECIMENOrdering Facility: [facility] Address: [address] [place] [address] Performed By: #### 5 8410-2 ####[facility] LABCLIA [id number] [place] [address] [place] RBC (Bld) [#/Vol] 3.56 10*6/uL Low 3.90-5.20 [facility] Comment on above: Order Comment: Speci men Type: BLOOD SPECIMENOrdering Facility: [facility] Address: [address] [place] [address] Performed By: #### 5 8410-2 ####[facility] LABCLIA [id number] [place] [address] [place] WBC (Bld) [#/Vol] 2.94 10*3/uL Low 3.70-11.00 [facility] Comment on above: Order Comment: Speci men Type: BLOOD SPECIMENOrdering Facility: [facility] Address: [address] [place] [address] Performed By: #### 5 8410-2 ####[facility] LABIA [id number] [place] [address] [place] CNPNon 12-08-2022 CNPN Normal [facility] CONSULT PROGon 12-08-2022 CONSULT PROG Normal [facility] Comprehensive metabolic 2000 panelon 12-08-2022 Albumin [Mass/Vol] 3.1 g/dL Low 3.9-4.9 [facility] Comment on above: Order Comment: Speci men Type: BLOOD SPECIMENOrdering Facility: [facility] Address: [address] [place] [address] Performed By: #### 2 4323-8, 2777-1, 41722-4 ####[facility] LABCLIA [id number] [place] [address] [place] ALP [Catalytic activity/Vol] 57 U/L Normal 34-123 [facility] Comment on above: Order Comment: Speci men Type: BLOOD SPECIMENOrdering Facility: [facility] Address: [address] [place] [address] Performed By: #### 2 4323-8, 2776-02, ####[facility] LABCLIA [id number] [place] [address] [place] ALT [Catalytic activity/Vol] 16 U/L Normal 7-38 [facility] Comment on above: Order Comment: Speci men Type: BLOOD SPECIMENOrdering Facility: [facility] Address: [address] [place] [address] Performed By: #### 2 4323-8, 2776-02, ####[facility] LABCLIA [id number] [place] [address] [place] Anion gap [Moles/Vol] 9 mmol/L Normal 9-18 [facility] Comment on above: Order Comment: Speci men Type: BLOOD SPECIMENOrdering Facility: [facility] Address: [address] [place] [address] Performed By: #### 2 4323-8, 2776-02, ####[facility] LABIA [id number] [place] [address] [place] AST [Catalytic activity/Vol] 26 U/L Normal 13-35 [facility] Comment on above: Order Comment: Speci men Type: BLOOD SPECIMENOrdering Facility: [facility] Address: [address] [place] [address] Performed By: #### 2 4323-8, 2776-02, ####[facility] LABCLIA [id number] [place] [address] [place] Bilirubin [Mass/Vol] 0.2 mg/dL Normal 0.2-1.3 [facility] Comment on above: Order Comment: Speci men Type: BLOOD SPECIMENOrdering Facility: [facility] Address: [address] [place] [address] Performed By: #### 2 4323-8, 2777, ####[facility] LABCLIA [id number] [place] [address] [place] Calcium [Mass/Vol] 8.2 mg/dL Low 8.5-10.2 [facility] Comment on above: Order Comment: Speci men Type: BLOOD SPECIMENOrdering Facility: [facility] Address: [address] [place] [address] Performed By: #### 2 4323-8, 27708-15, ####[facility] LABCLIA [id number] [place] [address] [place] Chloride [Moles/Vol] 109 mmol/L High 97-105 [facility] Comment on above: Order Comment: Speci men Type: BLOOD SPECIMENOrdering Facility: [facility] Address: [address] [place] [address] Performed By: #### 2 4323-8, 27708-15, ####[facility] LABIA [id number] [place] [address] [place] CO2 [Moles/Vol] 23 mmol/L Normal 22-30 [facility] Comment on above: Order Comment: Speci men Type: BLOOD SPECIMENOrdering Facility: [facility] Address: [address] [place] [address] Performed By: #### 2 4323-8, 27708-15, ####[facility] LABCLIA [id number] [place] [id number] [place] Creatinine [Mass/Vol] 0.73 mg/dL Normal 0.58-0.96 [facility] Comment on above: Order Comment: Speci men Type: BLOOD SPECIMENOrdering Facility: [facility] Address: [address] [place] [address] Performed By: #### 2 4323-8, 277-1, 95788-8 ####[facility] LABIA [id number] [place] [address] [place] Creatinine and Glomerular filtration rate.predicted panel (S/P/Bld) 112 mL/min/1.73m??? Normal >=60 [facility] Comment on above: Order Comment: Geraldo marrero Type: BLOOD SPECIMENOrdering Facility: [facility] Address: [address] [place] [address] Result Comment: Rashmi mated Glomerular Filtration Rate (eGFR) is calculated using the 2020 CKD-EPI creatinine equation. This equation utilizes serum creatinine, sex, and age as parameters. The creatinine assay has traceable calibration to isotope dilution-mass spectrometry. Refer to KDIGO guidelines for clinical interpretation. In patients with unstable renal function, e.g. those with acute kidney injury, the eGFR may not accurately reflect actual GFR. Performed By: #### 2 4323-8, 2777-, 96127-4 ####[facility] LABIA [id number] [place] [address] [place] Glucose [Mass/Vol] 119 mg/dL High 74-99 [facility] Comment on above: Order Comment: Geraldo marrero Type: BLOOD SPECIMENOrdering Facility: [facility] Address: [address] [place] [address] Result Comment: The [place] [employer] (ADA) provides guidance for cutoff values for fasting glucose and random glucose. The ADA defines fasting as no caloric intake for at least 8 hours. Fasting plasma glucose results between 100 to 125 mg/dL indicate increased risk for diabetes (prediabetes).Fasting plasma glucose results greater than or equal to 126 mg/dL meet the criteria for diagnosis of diabetes. In the absence of unequivocal hyperglycemia, results should be confirmed by repeat testing. In a patient with classic symptoms of hyperglycemia or hyperglycemic crisis, random plasma glucose results greater than or equal to 200 mg/dL meet the criteria for diagnosis of diabetes.Reference: Standards of Medical Care in Diabetes 2016, [place] [employer]. Diabetes Care. 2016.39(Suppl 1). Performed By: #### 2 4323-8, 2777-, ####[facility] LABCLIA [id number] [address] [address] [place] Potassium [Moles/Vol] 3.5 mmol/L Low 3.7-5.1 [facility] Comment on above: Order Comment: Speci men Type: BLOOD SPECIMENOrdering Facility: [facility] Address: [address] [place] [address] Performed By: #### 2 4323-8, 2776-02, ####[facility] LABCLIA [id number] [address] [address] [place] Protein [Mass/Vol] 5.2 g/dL Low 6.3-8.0 [facility] Comment on above: Order Comment: Speci men Type: BLOOD SPECIMENOrdering Facility: [facility] Address: [address] [place] [address] Performed By: #### 2 4323-8, 2776-02, ####[facility] LABCLIA [id number] [address] [address] [place] Sodium [Moles/Vol] 141 mmol/L Normal 136-144 [facility] Comment on above: Order Comment: Speci men Type: BLOOD SPECIMENOrdering Facility: [facility] Address: [address] [place] [phone] Performed By: #### 2 4323-8, 2776-02, ####[facility] LABCLIA [id number] [facility] [address] [address] [place] Urea nitrogen [Mass/Vol] 10 mg/dL Normal 7-21 [facility] Comment on above: Order Comment: Speci men Type: BLOOD SPECIMENOrdering Facility: [facility] Address: [address] [place] [phone] Performed By: #### 2 4323-8, 2776-02, ####[facility] LABCLIA [id number] [place] [id number] [place] Magnesium SerPl-mCncon 12-08 Magnesium [Mass/Vol] 2.1 mg/dL Normal 1.7-2.3 [facility] Comment on above: Order Comment: Speci men Type: BLOOD SPECIMENOrdering Facility: [facility] Address: [address] [place] [address] Performed By: #### 2 4323-8, 2777-, ####[facility] LABCLIA [id number] [place] [id number] [place] Phosphate SerPl-mCncon 12-08 Phosphate [Mass/Vol] 4.7 mg/dL Normal 2.7-4.8 [facility] Comment on above: Order Comment: Speci men Type: BLOOD SPECIMENOrdering Facility: [facility] Address: [address] [place] [address] Performed By: #### 2 4323-8, 2777, ####[facility] LABCLIA [id number] [place] [address] [place] CBC panel Auto (Bld)on 12-07 Erythrocyte distribution width (RBC) [Ratio] 13.2 % Normal 11.5-15.0 [facility] Comment on above: Order Comment: Speci men Type: BLOOD SPECIMENOrdering Facility: [facility] Address: [address] [place] [address] Performed By: #### 5 8410-2 ####[facility] LABCLIA [id number] [place] [id number] [place] Hematocrit (Bld) [Volume fraction] 33.9 % Low 36.0-46.0 [facility] Comment on above: Order Comment: Speci men Type: BLOOD SPECIMENOrdering Facility: [facility] Address: [address] [place] [address] Performed By: #### 5 8410-2 ####[facility] LABCLIA [id number] [place] [address] [place] Hemoglobin (Bld) [Mass/Vol] 11.6 g/dL Normal 11.5-15.5 [facility] Comment on above: Order Comment: Speci men Type: BLOOD SPECIMENOrdering Facility: [facility] Address: [address] [place] [address] Performed By: #### 5 8410-2 ####[facility] [id number] [place] [address] [place] MCH (RBC) [Entitic mass] 30.9 pg Normal 26.0-34.0 [facility] Comment on above: Order Comment: Speci men Type: BLOOD SPECIMENOrdering Facility: [facility] Address: [address] [place] [address] Performed By: #### 5 8410-2 ####[facility] [id number] [place] [address] [place] MCHC (RBC) [Mass/Vol] 34.2 g/dL Normal 30.5-36.0 [facility] Comment on above: Order Comment: Speci men Type: BLOOD SPECIMENOrdering Facility: [facility] Address: [address] [place] [address] Performed By: #### 5 8410-2 ####[facility] [id number] [place] [address] [place] MCV (RBC) [Entitic vol] 90.4 fL Normal 80.0-100.0 [facility] Comment on above: Order Comment: Speci men Type: BLOOD SPECIMENOrdering Facility: [facility] Address: [address] [place] [address] Performed By: #### 5 8410-2 ####[facility] [id number] [place] [address] [place] Nucleated RBC (Bld) [#/Vol] 10*3/uL Normal <0.01 [facility] Comment on above: Order Comment: Speci men Type: BLOOD SPECIMENOrdering Facility: [facility] Address: [address] [place] [address] Performed By: #### 5 8410-2 ####[facility] LABCLIA [id number] [place] [address] [place] Platelet mean volume (Bld) [Entitic vol] 12.5 fL Normal 9.0-12.7 [facility] Comment on above: Order Comment: Speci men Type: BLOOD SPECIMENOrdering Facility: [facility] Address: [address] [place] [address] Performed By: #### 5 8410-2 ####[facility] LABIA [id number] [place] [address] [place] Platelets (Bld) [#/Vol] 175 10*3/uL Normal 150-400 [facility] Comment on above: Order Comment: Speci men Type: BLOOD SPECIMENOrdering Facility: [facility] Address: [address] [place] [address] Performed By: #### 5 8410-2 ####[facility] LABIA [id number] [place] [address] [place] RBC (Bld) [#/Vol] 3.75 10*6/uL Low 3.90-5.20 [facility] Comment on above: Order Comment: Speci men Type: BLOOD SPECIMENOrdering Facility: [facility] Address: [address] [place] [address] Performed By: #### 5 8410-2 ####[facility] LABIA [id number] [place] [address] [place] WBC (Bld) [#/Vol] 2.61 10*3/uL Low 3.70-11.00 [facility] Comment on above: Order Comment: Speci men Type: BLOOD SPECIMENOrdering Facility: [facility] Address: [address] [place] [address] Performed By: #### 5 8410-2 ####[facility] LABCLIA [id number] [place] [address] [place] CONSULTon 12-07-2022 CONSULT Normal [facility] CONSULT PROGon 12-07-2022 CONSULT PROG Normal [facility] Comprehensive metabolic 2000 panelon 12-07-2022 Albumin [Mass/Vol] 3.4 g/dL Low 3.9-4.9 [facility] Comment on above: Order Comment: Speci men Type: BLOOD SPECIMENOrdering Facility: [facility] Address: [address] [place] [address] Performed By: #### 2 4323-8 ####[facility] LABCLIA [id number] [place] [address] [place] ALP [Catalytic activity/Vol] 62 U/L Normal 34-123 [facility] Comment on above: Order Comment: Speci men Type: BLOOD SPECIMENOrdering Facility: [facility] Address: [address] [place] [address] Performed By: #### 2 4323-8 ####[facility] LABCLIA [id number] [place] [address] [place] ALT [Catalytic activity/Vol] 19 U/L Normal 7-38 [facility] [facility] Comment on above: Order Comment: Speci men Type: BLOOD SPECIMENOrdering Facility: [facility] Address: [address] [place] [address] Performed By: #### 2 4323-8 ####[facility] LABCLIA [id number] [place] [address] [place] Anion gap [Moles/Vol] 9 mmol/L Normal 9-18 [facility] Comment on above: Order Comment: Speci men Type: BLOOD SPECIMENOrdering Facility: [facility] Address: [address] [place] [address] Performed By: #### 2 4323-8 ####[facility] LABCLIA [id number] [place] [address] [place] AST [Catalytic activity/Vol] 31 U/L Normal 13-35 [facility] Comment on above: Order Comment: Speci men Type: BLOOD SPECIMENOrdering Facility: [facility] Address: [address] [place] [address] Performed By: #### 2 4323-8 ####[facility] LABCLIA [id number] [place] [address] [place] Bilirubin [Mass/Vol] 0.3 mg/dL Normal 0.2-1.3 [facility] Comment on above: Order Comment: Speci men Type: BLOOD SPECIMENOrdering Facility: [facility] Address: [address] [place] [address] Performed By: #### 2 4323-8 ####[facility] LABCLIA [id number] [place] [address] [place] Calcium [Mass/Vol] 8.6 mg/dL Normal 8.5-10.2 [facility] Comment on above: Order Comment: Speci men Type: BLOOD SPECIMENOrdering Facility: [facility] Address: [address] [place] [address] Performed By: #### 2 4323-8 ####[facility] LABCLIA [id number] [place] [address] [place] Chloride [Moles/Vol] 108 mmol/L High 97-105 [facility] Comment on above: Order Comment: Speci men Type: BLOOD SPECIMENOrdering Facility: [facility] Address: [address] [place] [address] Performed By: #### 2 4323-8 ####[facility] LABCLIA [id number] [place] [address] [place] CO2 [Moles/Vol] 22 mmol/L Normal 22-30 [facility] Comment on above: Order Comment: Speci men Type: BLOOD SPECIMENOrdering Facility: [facility] Address: [address] [place] [address] Performed By: #### 2 4323-8 ####[facility] [id number] [place] [address] [place] Creatinine [Mass/Vol] 0.85 mg/dL Normal 0.58-0.96 [facility] Comment on above: Order Comment: Speci men Type: BLOOD SPECIMENOrdering Facility: [facility] Address: [address] [place] [address] Performed By: #### 2 4323-8 ####[facility] [id number] [place] [address] [place] Creatinine and Glomerular filtration rate.predicted panel (S/P/Bld) 93 mL/min/1.73m??? Normal >=60 [facility] Comment on above: Order Comment: Geraldo men Type: BLOOD SPECIMENOrdering Facility: [facility] Address: [address] [place] [address] Result Comment: Rashmi mated Glomerular Filtration Rate (eGFR) is calculated using the 2020 CKD-EPI creatinine equation. This equation utilizes serum creatinine, sex, and age as parameters. The creatinine assay has traceable calibration to isotope dilution-mass spectrometry. Refer to KDIGO guidelines for clinical interpretation. In patients with unstable renal function, e.g. those with acute kidney injury, the eGFR may not accurately reflect actual GFR. Performed By: #### 2 4323-8 ####[facility] LABIA [id number] [place] [address] [place] Glucose [Mass/Vol] 80 mg/dL Normal 74-99 [facility] Comment on above: Order Comment: Speci men Type: BLOOD SPECIMENOrdering Facility: [facility] Address: [address] [place] [address] Result Comment: The [place] [employer] (ADA) provides guidance for cutoff values for fasting glucose and random glucose. The ADA defines fasting as no caloric intake for at least 8 hours. Fasting plasma glucose results between 100 to 125 mg/dL indicate increased risk for diabetes (prediabetes).Fasting plasma glucose results greater than or equal to 126 mg/dL meet the criteria for diagnosis of diabetes. In the absence of unequivocal hyperglycemia, results should be confirmed by repeat testing. In a patient with classic symptoms of hyperglycemia or hyperglycemic crisis, random plasma glucose results greater than or equal to 200 mg/dL meet the criteria for diagnosis of diabetes.Reference: Standards of Medical Care in Diabetes 2016, [place] [employer]. Diabetes Care. 2016.39(Suppl 1). Performed By: #### 2 4323-8 ####[facility] LABCLIA [id number] [place] [address] [place] Potassium [Moles/Vol] 3.7 mmol/L Normal 3.7-5.1 [facility] Comment on above: Order Comment: Speci men Type: BLOOD SPECIMENOrdering Facility: [facility] Address: [address] [place] [address] Performed By: #### 2 4323-8 ####[facility] LABCLIA [id number] [place] [address] [place] Protein [Mass/Vol] 5.5 g/dL Low 6.3-8.0 [facility] Comment on above: Order Comment: Lyssai men Type: BLOOD SPECIMENOrdering Facility: [facility] Address: [address] [place] [address] Performed By: #### 2 4323-8 ####[facility] LABCLIA [id number] [place] [address] [place] Sodium [Moles/Vol] 139 mmol/L Normal 136-144 [facility] Comment on above: Order Comment: Speci men Type: BLOOD SPECIMENOrdering Facility: [facility] Address: [address] [place] [address] Performed By: #### 2 4323-8 ####[facility] LABCLIA [id number] [place] [address] [place] Urea nitrogen [Mass/Vol] 12 mg/dL Normal 7-21 [facility] Comment on above: Order Comment: Speci men Type: BLOOD SPECIMENOrdering Facility: [facility] Address: [address] [place] [address] Performed By: #### 2 4323-8 ####[facility] LABCLIA [id number] [place] [address] [place] ED NOTEon 12-07-2022 ED NOTE HNO ID: [id number] Author: Michelle Regalado RN Service: Emergency Medicine Author Type: Registered Nurse Type: ED Notes Filed: 12/06/2022 10:09 PM Note Text: Report called to DEE Argueta. Normal [facility] NURSING PROGon 12-07-2022 NURSING PROG Normal [facility] XR CHEST 1V PORT POST PICC - NBon 12-07-2022 XR CHEST 1V PORT POST PICC -NB Normal [facility] CASE MGT INIT ASSESon 2022 CASE MGT INIT ASSES Normal [facility] CBC W Auto Differential pane l (Bld)on 12-06-2022 Basophils (Bld) [#/Vol] 10*3/uL Normal <0.11 [facility] Comment on above: Order Comment: Speci men Type: BLOOD SPECIMENOrdering Facility: [facility] Address: [address] [place] [address] Performed By: #### 5 7021-8 ####[facility] LABCLIA [id number] [place] [address] [place] Basophils/100 WBC (Bld) 0.7 % Normal [facility] Comment on above: Order Comment: Speci men Type: BLOOD SPECIMENOrdering Facility: [facility] Address: [address] [place] [address] Performed By: #### 5 7021-8 ####[facility] LABCLIA [id number] [place] [address] [place] Differential cell count method Nom (Bld) Auto Normal [facility] Comment on above: Order Comment: Speci men Type: BLOOD SPECIMENOrdering Facility: [facility] Address: [address] [place] [address] Performed By: #### 5 7021-8 ####[facility] LABCLIA [id number] [place] [address] [place] Eosinophils (Bld) [#/Vol] 0.09 10*3/uL Normal <0.46 [facility] Comment on above: Order Comment: Speci men Type: BLOOD SPECIMENOrdering Facility: [facility] Address: [address] [place] [address] Performed By: #### 5 7021-8 ####[facility] LABCLIA [id number] [place] [address] [place] Eosinophils/100 WBC (Bld) 2.9 % Normal [facility] Comment on above: Order Comment: Speci men Type: BLOOD SPECIMENOrdering Facility: [facility] Address: [address] [place] [address] Performed By: #### 5 7021-8 ####[facility] LABCLIA [id number] [place] [address] [place] Erythrocyte distribution width (RBC) [Ratio] 13.2 % Normal 11.5-15.0 [facility] Comment on above: Order Comment: Speci men Type: BLOOD SPECIMENOrdering Facility: [facility] Address: [address] [place] [address] Performed By: #### 5 7021-8 ####[facility] LABCLIA [id number] [place] [address] [place] Hematocrit (Bld) [Volume fraction] 33.7 % Low 36.0-46.0 [facility] Comment on above: Order Comment: Speci men Type: BLOOD SPECIMENOrdering Facility: [facility] Address: [address] [place] [address] Performed By: #### 5 7021-8 ####[facility] LABCLIA [id number] [place] [address] [place] Hemoglobin (Bld) [Mass/Vol] 11.6 g/dL Normal 11.5-15.5 [facility] Comment on above: Order Comment: Speci men Type: BLOOD SPECIMENOrdering Facility: [facility] Address: [address] [place] [address] Performed By: #### 5 7021-8 ####[facility] LABCLIA [id number] [place] [address] [place] Immature granulocytes (Bld) [#/Vol] 10*3/uL Normal <0.10 [facility] Comment on above: Order Comment: Speci men Type: BLOOD SPECIMENOrdering Facility: [facility] Address: [address] [place] [address] Performed By: #### 5 7021-8 ####[facility] LABCLIA [id number] [place] [address] [place] Immature granulocytes/100 WBC (Bld) 0.3 % Normal [facility] Comment on above: Order Comment: Speci men Type: BLOOD SPECIMENOrdering Facility: [facility] Address: [address] [place] [address] Performed By: #### 5 7021-8 ####[facility] LABCLIA [id number] [place] [address] [place] Lymphocytes (Bld) [#/Vol] 1.31 10*3/uL Normal 1.00-4.00 [facility] Comment on above: Order Comment: Speci men Type: BLOOD SPECIMENOrdering Facility: [facility] Address: [address] [place] [address] Performed By: #### 5 7021-8 ####[facility] LABCLIA [id number] [place] [address] [place] Lymphocytes/100 WBC (Bld) 42.8 % Normal [facility] Comment on above: Order Comment: Speci men Type: BLOOD SPECIMENOrdering Facility: [facility] Address: [address] [place] [address] Performed By: #### 5 7021-8 ####[facility] LABIA [id number] [place] [address] [place] MCH (RBC) [Entitic mass] 30.8 pg Normal 26.0-34.0 [facility] Comment on above: Order Comment: Speci men Type: BLOOD SPECIMENOrdering Facility: [facility] Address: [address] [place] [address] Performed By: #### 5 7021-8 ####[facility] [id number] [place] [address] [place] MCHC (RBC) [Mass/Vol] 34.4 g/dL Normal 30.5-36.0 [facility] Comment on above: Order Comment: Speci men Type: BLOOD SPECIMENOrdering Facility: [facility] Address: [address] [place] [address] Performed By: #### 5 7021-8 ####[facility] LABIA [id number] [place] [address] [place] MCV (RBC) [Entitic vol] 89.4 fL Normal 80.0-100.0 [facility] Comment on above: Order Comment: Speci men Type: BLOOD SPECIMENOrdering Facility: [facility] Address: [address] [place] [address] Performed By: #### 5 7021-8 ####[facility] LABS[facility] [id number] [place] [address] [place] Monocytes (Bld) [#/Vol] 0.24 10*3/uL Normal <0.87 [facility] Comment on above: Order Comment: Speci men Type: BLOOD SPECIMENOrdering Facility: [facility] Address: [address] [place] [address] Performed By: #### 5 7021-8 ####[facility] LABCLIA [id number] [place] [address] [place] Monocytes/100 WBC (Bld) 7.8 % Normal [facility] Comment on above: Order Comment: Speci men Type: BLOOD SPECIMENOrdering Facility: [facility] Address: [address] [place] [address] Performed By: #### 5 7021-8 ####[facility] LABCLIA [id number] [place] [address] [place] Neutrophils (Bld) [#/Vol] 1.39 10*3/uL Low 1.45-7.50 [facility] Comment on above: Order Comment: Speci men Type: BLOOD SPECIMENOrdering Facility: [facility] Address: [address] [place] [address] Performed By: #### 5 7021-8 ####[facility] LABCLIA [id number] [place] [address] [place] Neutrophils/100 WBC (Bld) 45.5 % Normal [facility] Comment on above: Order Comment: Speci men Type: BLOOD SPECIMENOrdering Facility: [facility] Address: [address] [place] [address] Performed By: #### 5 7021-8 ####[facility] LABCLIA [id number] [place] [address] [place] Nucleated RBC (Bld) [#/Vol] 10*3/uL Normal <0.01 [facility] Comment on above: Order Comment: Speci men Type: BLOOD SPECIMENOrdering Facility: [facility] Address: [address] [place] [address] Performed By: #### 5 7021-8 ####[facility] LABCLIA [id number] [place] [address] [place] Nucleated RBC/100 WBC (Bld) [Ratio] 0.0 /100 WBC Normal [facility] Comment on above: Order Comment: Speci men Type: BLOOD SPECIMENOrdering Facility: [facility] Address: [address] [place] [address] Performed By: #### 5 7021-8 ####[facility] LABIA [id number] [place] [address] [place] Platelet mean volume (Bld) [Entitic vol] 11.9 fL Normal 9.0-12.7 [facility] Comment on above: Order Comment: Speci men Type: BLOOD SPECIMENOrdering Facility: [facility] Address: [address] [place] [address] Performed By: #### 5 7021-8 ####[facility] LABIA [id number] [place] [address] [place] Platelets (Bld) [#/Vol] 163 10*3/uL Normal 150-400 [facility] Comment on above: Order Comment: Speci men Type: BLOOD SPECIMENOrdering Facility: [facility] Address: [address] [place] [address] Performed By: #### 5 7021-8 ####[facility] LABIA [id number] [place] [address] [place] RBC (Bld) [#/Vol] 3.77 10*6/uL Low 3.90-5.20 [facility] Comment on above: Order Comment: Speci men Type: BLOOD SPECIMENOrdering Facility: [facility] Address: [address] [place] [address] Performed By: #### 5 7021-8 ####[facility] LABCLIA [id number] [place] [address] [place] WBC (Bld) [#/Vol] 3.06 10*3/uL Low 3.70-11.00 [facility] Comment on above: Order Comment: Speci men Type: BLOOD SPECIMENOrdering Facility: [facility] Address: [address] [place] [address] Performed By: #### 5 7021-8 ####[facility] LABCLIA [id number] [place] [address] [place] CTA ABD/PELV W IVCONon 12-06 CTA ABD/PELV W IVCON Normal [facility] metabolic 2000 panelon 12-06-2022 Albumin [Mass/Vol] 3.6 g/dL Low 3.9-4.9 [facility] Comment on above: Order Comment: Speci men Type: BLOOD SPECIMENOrdering Facility: [facility] Address: [address] [place] [address] Performed By: #### 3 040-3, 24908-5, 86842-8, 2777-1 ####[facility] LABCLIA [id number] [place] [address] [place] ALP [Catalytic activity/Vol] 61 U/L Normal 34-123 [facility] Comment on above: Order Comment: Speci men Type: BLOOD SPECIMENOrdering Facility: [facility] Address: [address] [place] [address] Performed By: #### 3 040-3, 28735-0, 92030-4, 2777-1 ####[facility] LABCLIA [id number] [place] [address] [place] ALT [Catalytic activity/Vol] 16 U/L Normal 7-38 [facility] Comment on above: Order Comment: Speci men Type: BLOOD SPECIMENOrdering Facility: [facility] Address: [address] [place] [address] Performed By: #### 3 040-3, 67855-7, 91578-9, 2777-1 ####[facility] LABCLIA [id number] [place] [address] [place] Anion gap [Moles/Vol] 10 mmol/L Normal 9-18 [facility] Comment on above: Order Comment: Speci men Type: BLOOD SPECIMENOrdering Facility: [facility] Address: [address] [place] [address] Performed By: #### 3 040-3, 67001-6, 74467-1, 2777-1 ####[facility] LABCLIA [id number] [place] [address] [place] AST [Catalytic activity/Vol] 29 U/L Normal 13-35 [facility] Comment on above: Order Comment: Speci men Type: BLOOD SPECIMENOrdering Facility: [facility] Address: [address] [place] [address] Performed By: #### 3 040-3, 04667-4, 82386-3, 2777- ####[facility] LABIA [id number] [place] [address] [place] Bilirubin [Mass/Vol] 0.2 mg/dL Normal 0.2-1.3 [facility] Comment on above: Order Comment: Speci men Type: BLOOD SPECIMENOrdering Facility: [facility] Address: [address] [place] [address] Performed By: #### 3 040-3, 84472-4, 53722-8, 2777-1 ####[facility] LABCLIA [id number] [place] [address] [place] Calcium [Mass/Vol] 8.2 mg/dL Low 8.5-10.2 [facility] Comment on above: Order Comment: Speci men Type: BLOOD SPECIMENOrdering Facility: [facility] Address: [address] [place] [address] Performed By: #### 3 040-3, 06444-8, 51694-0, 2777-1 ####[facility] LABIA [id number] [place] [address] [place] Chloride [Moles/Vol] 109 mmol/L High 97-105 [facility] Comment on above: Order Comment: Speci men Type: BLOOD SPECIMENOrdering Facility: [facility] Address: [address] [place] [address] Performed By: #### 3 040-3, 38743-3, 26609-6, 2777- ####[facility] [id number] [place] [address] [place] CO2 [Moles/Vol] 21 mmol/L Low 22-30 [facility] Comment on above: Order Comment: Speci men Type: BLOOD SPECIMENOrdering Facility: [facility] Address: [address] [place] [address] Performed By: #### 3 040-3, 25596-7, 37703-0, 2776- ####[facility] [id number] [place] [address] [place] Creatinine [Mass/Vol] 0.66 mg/dL Normal 0.58-0.96 [facility] Comment on above: Order Comment: Speci men Type: BLOOD SPECIMENOrdering Facility: [facility] Address: [address] [place] [address] Performed By: #### 3 040-3, 21911-4, 42242-8, 27708-15 ####[facility] [id number] [place] [address] [place] Creatinine and Glomerular filtration rate.predicted panel (S/P/Bld) 119 mL/min/1.73m??? Normal >=60 [facility] Comment on above: Order Comment: Speci men Type: BLOOD SPECIMENOrdering Facility: [facility] Address: [address] [place] [address] Result Comment: Rashmi mated Glomerular Filtration Rate (eGFR) is calculated using the 2020 CKD-EPI creatinine equation. This equation utilizes serum creatinine, sex, and age as parameters. The creatinine assay has traceable calibration to isotope dilution-mass spectrometry. Refer to KDIGO guidelines for clinical interpretation. In patients with unstable renal function, e.g. those with acute kidney injury, the eGFR may not accurately reflect actual GFR. Performed By: #### 3 040-3, 00835-3, 82761-5, 277-1 ####[facility] LABCLIA [id number] [place] [id number] [place] Glucose [Mass/Vol] 83 mg/dL Normal 74-99 [facility] Comment on above: Order Comment: Speci men Type: BLOOD SPECIMENOrdering Facility: [facility] Address: [address] [place] [address] Result Comment: The [place] [employer] (ADA) provides guidance for cutoff values for fasting glucose and random glucose. The ADA defines fasting as no caloric intake for at least 8 hours. Fasting plasma glucose results between 100 to 125 mg/dL indicate increased risk for diabetes (prediabetes).Fasting plasma glucose results greater than or equal to 126 mg/dL meet the criteria for diagnosis of diabetes. In the absence of unequivocal hyperglycemia, results should be confirmed by repeat testing. In a patient with classic symptoms of hyperglycemia or hyperglycemic crisis, random plasma glucose results greater than or equal to 200 mg/dL meet the criteria for diagnosis of diabetes.Reference: Standards of Medical Care in Diabetes 2016, [place] [employer]. Diabetes Care. 2016.39(Suppl 1). Performed By: #### 3 040-3, 46255-1, 49475-3, 2777-1 ####[facility] LABIA [id number] [place] [address] [place] Potassium [Moles/Vol] 3.7 mmol/L Normal 3.7-5.1 [facility] Comment on above: Order Comment: Speci men Type: BLOOD SPECIMENOrdering Facility: [facility] Address: [address] [place] [address] Performed By: #### 3 040-3, 13548-2, 16547-2, 2777-1 ####[facility] LABIA [id number] [place] [address] [place] Protein [Mass/Vol] 5.9 g/dL Low 6.3-8.0 [facility] Comment on above: Order Comment: Speci men Type: BLOOD SPECIMENOrdering Facility: [facility] Address: [address] [place] [address] Performed By: #### 3 040-3, 36170-8, 63101-8, 2777- ####[facility] LABCLIA [id number] [address] [address] [place] Sodium [Moles/Vol] 140 mmol/L Normal 136-144 [facility] Comment on above: Order Comment: Speci men Type: BLOOD SPECIMENOrdering Facility: [facility] Address: [address] [place] [address] Performed By: #### 3 040-3, 18999-7, 44146-2, 277- ####[facility] LABIA [id number] [address] [address] [place] Urea nitrogen [Mass/Vol] 13 mg/dL Normal 7-21 [facility] Comment on above: Order Comment: Speci men Type: BLOOD SPECIMENOrdering Facility: [facility] Address: [address] [address] Performed By: #### 3 040-3, 09136-5, 85376-3, 2777 ####[facility] LABIA [id number] [address] [address] [place] ED NOTEon 12-06-2022 ED NOTE HNO ID: [id number] Author: Maia Mosher RN Service: Emergency Medicine Author Type: Registered Nurse Type: ED Notes Filed: 12/06/2022 3:19 PM Note Text: Nurse handoff given to DEE Carreon Normal [facility] ED PROV NOTEon 12-06-2022 ED PROV NOTE Normal [facility] HISTORY PHYSICALon HISTORY PHYSICAL Normal [facility] Lipase SerPl-cCncon 12-07-19 23 Lipase [Catalytic activity/Vol] 40 U/L Normal 16-61 [facility] Comment on above: Order Comment: Speci men Type: BLOOD SPECIMENOrdering Facility: [facility] Address: [address] [place] [address] Performed By: #### 3 040-3, , , 2776-02 ####[facility] LABCLIA [id number] [place] [address] [place] Magnesium SerPl-nc 12-06 Magnesium [Mass/Vol] 2.0 mg/dL Normal 1.7-2.3 [facility] Comment on above: Order Comment: Speci men Type: BLOOD SPECIMENOrdering Facility: [facility] Address: [address] [place] [address] Performed By: #### 3 040-3, , , 2776-02 ####[facility] LABIA [id number] [place] [address] [place] Phosphate SerPl-mCncon 12-06 Phosphate [Mass/Vol] 2.7 mg/dL Normal 2.7-4.8 [facility] Comment on above: Order Comment: Speci men Type: BLOOD SPECIMENOrdering Facility: [facility] Address: [address] [place] [address] Performed By: #### 3 040-3, , , 2776-02 ####[facility] LABIA [id number] [place] [address] [place] Urinalysis complete panel (U )on 12-06-2022 Bacteria LM.HPF (Urine sed) [#/Area] Negative Normal Negative [facility] Comment on above: Order Comment: Speci men Type: URINE SPECIMENOrdering Facility: [facility] Address: [address] [place] [address] Performed By: #### 2 4356-8 ####[facility] LABIA [id number] [place] [address] [place] Bilirubin Ql (U) Negative Normal Negative [facility] Comment on above: Order Comment: Speci men Type: URINE SPECIMENOrdering Facility: [facility] Address: [address] [place] [address] Performed By: #### 2 4356-8 ####[facility] LABCLIA [id number] [place] [address] [place] Clarity (Unsp spec) Clear Normal [facility] Comment on above: Order Comment: Speci men Type: URINE SPECIMENOrdering Facility: [facility] Address: [address] [place] [address] Performed By: #### 2 4356-8 ####[facility] LABCLIA [id number] [place] [address] [place] Color (U) Yellow Normal Yellow [facility] Comment on above: Order Comment: Speci men Type: URINE SPECIMENOrdering Facility: [facility] Address: [address] [place] [address] Performed By: #### 2 4356-8 ####[facility] LABIA [id number] [place] [address] [place] Epithelial cells LM.HPF (Urine sed) [#/Area] Moderate Normal [facility] Comment on above: Order Comment: Speci men Type: URINE SPECIMENOrdering Facility: [facility] Address: [address] [place] [address] Performed By: #### 2 4356-8 ####[facility] LABIA [id number] [place] [address] [place] Glucose Test strip (U) [Mass/Vol] Negative Normal Negative [facility] Comment on above: Order Comment: Speci men Type: URINE SPECIMENOrdering Facility: [facility] Address: [address] [place] [address] Performed By: #### 2 4356-8 ####[facility] LABIA [id number] [place] [address] [place] Hemoglobin Ql (U) Negative Normal Negative [facility] Comment on above: Order Comment: Speci men Type: URINE SPECIMENOrdering Facility: [facility] Address: [address] [place] [address] Performed By: #### 2 4356-8 ####[facility] LABCLIA [id number] [place] [address] [place] Hyaline casts (Urine sed) [#/Area] 0 /[LPF] Normal 0 /LPF [facility] Comment on above: Order Comment: Speci men Type: URINE SPECIMENOrdering Facility: [facility] Address: [address] [place] [address] Performed By: #### 2 4356-8 ####[facility] LABCLIA [id number] [place] [address] [place] Ketones Ql (U) Negative Normal Negative [facility] Comment on above: Order Comment: Speci men Type: URINE SPECIMENOrdering Facility: [facility] Address: [address] [place] [address] Performed By: #### 2 4356-8 ####[facility] LABCLIA [id number] [place] [address] [place] Leukocyte esterase Test strip Ql (U) Negative Normal Negative [facility] Comment on above: Order Comment: Speci men Type: URINE SPECIMENOrdering Facility: [facility] Address: [address] [place] [address] Performed By: #### 2 4356-8 ####[facility] LABCLIA [id number] [place] [address] [place] Nitrite Ql (U) Negative Normal Negative [facility] Comment on above: Order Comment: Speci men Type: URINE SPECIMENOrdering Facility: [facility] Address: [address] [place] [address] Performed By: #### 2 4356-8 ####[facility] LABCLIA [id number] [place] [address] [place] pH (U) 7.0 [pH] Normal <8.5 [facility] Comment on above: Order Comment: Speci men Type: URINE SPECIMENOrdering Facility: [facility] Address: [address] [place] [address] Performed By: #### 2 4356-8 ####[facility] LABCLIA [id number] [place] [address] [place] Protein (U) [Mass/Vol] Negative Normal Negative [facility] Comment on above: Order Comment: Speci men Type: URINE SPECIMENOrdering Facility: [facility] Address: [address] [place] [address] Performed By: #### 2 4356-8 ####[facility] LABIA [id number] [place] [address] [place] RBC LM.HPF (Urine sed) [#/Area] 0-2 /HPF Normal 0-2 /HPF [facility] Comment on above: Order Comment: Speci men Type: URINE SPECIMENOrdering Facility: [facility] Address: [address] [place] [address] Performed By: #### 2 4356-8 ####[facility] LABIA [id number] [place] [address] [place] Specific gravity (U) [Rel density] 1.014 Normal 1.005-1.030 [facility] Comment on above: Order Comment: Speci men Type: URINE SPECIMENOrdering Facility: [facility] Address: [address] [place] [address] Performed By: #### 2 4356-8 ####[facility] LABCLIA [id number] [place] [address] [place] Urobilinogen Ql (U) 0.2 EU/dL Normal 0.2-1.0 EU/dL [facility] Comment on above: Order Comment: Speci men Type: URINE SPECIMENOrdering Facility: [facility] Address: [address] [place] [address] Performed By: #### 2 4356-8 ####[facility] LABCLIA [id number] [address] [address] [place] WBC LM.HPF (Urine sed) [#/Area] 0-5 /HPF Normal 0-5 /HPF [facility] Comment on above: Order Comment: Speci men Type: URINE SPECIMENOrdering Facility: [facility] Address: [address] [place] [address] Performed By: #### 2 4356-8 ####[facility] LABCLIA [id number] [place] [id number] [place] CNOVon 12-04-2022 CNOV Normal [facility] HISTORY PHYSICALon HISTORY PHYSICAL Normal [facility] Basic Metabolic Panelon 11-15 Anion gap [Moles/Vol] 10 mmol/L Normal 9-15 [facility] Comment on above: Performed By: #### L IPAS #### [facility] [address] [place] [address] Calcium [Mass/Vol] 8.4 mg/dL Low 8.5-9.9 [facility] Comment on above: Performed By: #### L IPAS #### [facility] [address] [place] [address] Chloride [Moles/Vol] 108 mmol/L Critically high 95-107 [facility] Comment on above: Performed By: #### L IPAS #### [facility] [address] [place] [address] CO2 [Moles/Vol] 23 mmol/L Normal 20-31 [facility] Comment on above: Performed By: #### L IPAS #### [facility] [address] [place] [address] Creatinine [Mass/Vol] 0.64 mg/dL Normal 0.50-0.90 [facility] Comment on above: Performed By: #### L IPAS #### [facility] [address] [place] [address] GFR >60.0 Normal >60 [facility] Comment on above: Result Comment: Adán atric calculator link https://www.kidney.org/professionals/kdoqi/gfr_calculatorped Effective Nov 17, 2021 These results are not intended for use in patients <18 years of age. eGFR results are calculated without a race factor using the 2020 CKD-EPI equation. Careful clinical correlation is recommended, particularly when comparing to results calculated using previous equations. The CKD-EPI equation is less accurate in patients with extremes of muscle mass, extra-renal metabolism of creatinine, excessive creatinine ingestion, or following therapy that affects renal tubular secretion. Performed By: #### L IPAS #### [facility] [address] [place] [address] Glucose [Mass/Vol] 86 mg/dL Normal 70-99 [facility] Comment on above: Performed By: #### L IPAS #### [facility] [address] [place] [address] Potassium [Moles/Vol] 3.9 mmol/L Normal 3.4-4.9 [facility] Comment on above: Performed By: #### L IPAS #### [facility] [address] [place] [address] Sodium [Moles/Vol] 141 mmol/L Normal 135-144 [facility] Comment on above: Performed By: #### L IPAS #### [facility] [address] [place] [address] Urea nitrogen [Mass/Vol] 14 mg/dL Normal 6-20 [facility] Comment on above: Performed By: #### L IPAS #### [facility] [address] [place] [address] CBC With Platelet and Differ entialon 12-03-2022 Basophils (Bld) [#/Vol] 0.0 10*3/uL Normal 0.0-0.2 [facility] Comment on above: Performed By: #### C BCWD #### [facility] [address] [place] [address] Basophils/100 WBC (Bld) 0.9 % Normal [facility] Comment on above: Performed By: #### C BCWD #### [facility] [address] [place] [address] Eosinophils (Bld) [#/Vol] 0.2 10*3/uL Normal 0.0-0.7 [facility] Comment on above: Performed By: #### C BCWD #### [facility] [address] [place] [address] Eosinophils/100 WBC (Bld) 5.2 % Normal [facility] Comment on above: Performed By: #### C BCWD #### [facility] [address] [place] [address] Erythrocyte distribution width (RBC) [Ratio] 13.2 % Normal 11.5-14.5 [facility] Comment on above: Performed By: #### C BCWD #### [facility] [address] [place] [address] Hematocrit (Bld) [Volume fraction] 35.9 % Low 37.0-47.0 [facility] Comment on above: Performed By: #### C BCWD #### [facility] [address] [place] [address] Hemoglobin (Bld) [Mass/Vol] 12.3 g/dL Normal 12.0-16.0 [facility] Comment on above: Performed By: #### C BCWD #### [facility] [address] [place] [address] Lymphocytes (Bld) [#/Vol] 1.3 10*3/uL Normal 1.0-4.8 [facility] Comment on above: Performed By: #### C BCWD #### [facility] [address] [place] [address] Lymphocytes/100 WBC (Bld) 38.2 % Normal [facility] Comment on above: Performed By: #### C BCWD #### [facility] [address] [place] [address] MCH (RBC) [Entitic mass] 30.8 pg Normal 27.0-31.3 [facility] Comment on above: Performed By: #### C BCWD #### [facility] [address] [place] [address] MCHC 34.3 % Normal 33.0-37.0 [facility] Comment on above: Performed By: #### C BCWD #### [facility] [address] [place] [address] MCV (RBC) [Entitic vol] 89.8 fL Normal 79.4-94.8 [facility] Comment on above: Performed By: #### C BCWD #### [facility] [address] [place] [address] Monocytes (Bld) [#/Vol] 0.4 10*3/uL Normal 0.2-0.8 [facility] Comment on above: Performed By: #### C BCWD #### [facility] [address] [place] [address] Monocytes/100 WBC (Bld) 10.9 % Normal [facility] Comment on above: Performed By: #### C BCWD #### [facility] [address] [place] [address] Neutrophils (Bld) [#/Vol] 1.5 10*3/uL Normal 1.4-6.5 [facility] Comment on above: Performed By: #### C BCWD #### [facility] [address] [place] [address] Neutrophils/100 WBC (Bld) 44.5 % Normal [facility] Comment on above: Performed By: #### C BCWD #### [facility] [address] [place] [address] Platelets (Bld) [#/Vol] 204 10*3/uL Normal 130-400 [facility] Comment on above: Performed By: #### C BCWD #### [facility] [address] [place] [address] RBC (Bld) [#/Vol] 4.00 10*6/uL Low 4.20-5.40 [facility] Comment on above: Performed By: #### C BCWD #### [facility] [address] [place] [address] WBC (Bld) [#/Vol] 3.3 10*3/uL Low 4.8-10.8 [facility] Comment on above: Performed By: #### C BCWD #### [facility] [address] [place] [address] Basophils (Bld) [#/Vol] 0.0 10*3/uL Normal 0.0-0.2 [facility] Comment on above: Performed By: #### P GLU #### [facility] [address] [place] [address] Basophils/100 WBC (Bld) 0.7 % Normal [facility] Comment on above: Performed By: #### P GLU #### [facility] [address] [place] [address] Eosinophils (Bld) [#/Vol] 0.2 10*3/uL Normal 0.0-0.7 [facility] Comment on above: Performed By: #### P GLU #### [facility] [address] [place] [address] Eosinophils/100 WBC (Bld) 5.9 % Normal [facility] Comment on above: Performed By: #### P GLU #### [facility] [address] [place] [address] Erythrocyte distribution width (RBC) [Ratio] 13.5 % Normal 11.5-14.5 [facility] Comment on above: Performed By: #### P GLU #### [facility] [address] [place] [address] Hematocrit (Bld) [Volume fraction] 33.2 % Low 37.0-47.0 [facility] Comment on above: Performed By: #### P GLU #### [facility] [address] [place] [address] Hemoglobin (Bld) [Mass/Vol] 11.8 g/dL Low 12.0-16.0 [facility] Comment on above: Performed By: #### P GLU #### [facility] [address] [place] [address] Lymphocytes (Bld) [#/Vol] 1.1 10*3/uL Normal 1.0-4.8 [facility] Comment on above: Performed By: #### P GLU #### [facility] [address] [place] [address] Lymphocytes/100 WBC (Bld) 39.5 % Normal [facility] Comment on above: Performed By: #### P GLU #### [facility] [address] [place] [address] MCH (RBC) [Entitic mass] 34.0 pg Critically high 27.0-31.3 [facility] Comment on above: Performed By: #### P GLU #### [facility] [address] [place] [address] MCHC 35.5 % Normal 33.0-37.0 [facility] Comment on above: Performed By: #### P GLU #### [facility] [address] [place] [address] MCV (RBC) [Entitic vol] 95.7 fL Critically high 79.4-94.8 [facility] Comment on above: Performed By: #### P GLU #### [facility] [address] [place] [address] Monocytes (Bld) [#/Vol] 0.3 10*3/uL Normal 0.2-0.8 [facility] Comment on above: Performed By: #### P GLU #### [facility] [address] [place] [address] Monocytes/100 WBC (Bld) 9.1 % Normal [facility] Comment on above: Performed By: #### P GLU #### [facility] [address] [place] [address] Neutrophils (Bld) [#/Vol] 1.3 10*3/uL Low 1.4-6.5 [facility] Comment on above: Performed By: #### P GLU #### [facility] [address] [place] [address] Neutrophils/100 WBC (Bld) 44.5 % Normal [facility] Comment on above: Performed By: #### P GLU #### [facility] [address] [place] [address] Platelets (Bld) [#/Vol] 186 10*3/uL Normal 130-400 [facility] Comment on above: Performed By: #### P GLU #### [facility] [address] [place] [address] RBC (Bld) [#/Vol] 3.47 10*6/uL Low 4.20-5.40 [facility] Comment on above: Performed By: #### P GLU #### [facility] [address] [place] [address] WBC (Bld) [#/Vol] 2.9 10*3/uL Low 4.8-10.8 [facility] Comment on above: Performed By: #### P GLU #### [facility] [address] [place] [address] CNPNon 12-03-2022 [facility]N [facility] Magn[facility]on 12-03-2022 Magnesium [Mass/Vol] 1.8 mg/dL Normal 1.7-2.4 [facility] Comment on above: Performed By: #### L IPAS #### [facility] [address] [place] [address] POCT Glucoseon 12-03-2022 Glucose [Mass/Vol] 90 mg/dL Normal 70-99 [facility] Comment on above: Performed By: #### P GLU #### [facility] [address] [place] [address] POC Performed on ACCU-CHEK Normal [facility] Comment on above: Performed By: #### P GLU #### [facility] [address] [place] [address] Glucose [Mass/Vol] 101 mg/dL Critically high 70-99 [facility] Comment on above: Performed By: #### L IPAS #### [facility] [address] [place] [address] POC Performed on ACCU-CHEK Normal [facility] Comment on above: Performed By: #### L IPAS #### [facility] [address] [place] [address] Phosphoruson 12-03-2022 Phosphate [Mass/Vol] 3.6 mg/dL Normal 2.3-4.8 [facility] Comment on above: Performed By: #### L IPAS #### [facility] [address] [place] [address] Basic Metabolic Panelon 10- Anion gap [Moles/Vol] 6 mmol/L Low 9-15 [facility] Comment on above: Performed By: #### C BCWD #### [facility] [address] [place] [address] Calcium [Mass/Vol] 8.4 mg/dL Low 8.5-9.9 [facility] Comment on above: Performed By: #### C BCWD #### [facility] [address] [place] [address] Chloride [Moles/Vol] 107 mmol/L Normal 95-107 [facility] Comment on above: Performed By: #### C BCWD #### [facility] [address] [place] [address] CO2 [Moles/Vol] 25 mmol/L Normal 20-31 [facility] Comment on above: Performed By: #### C BCWD #### [facility] [address] [place] [address] Creatinine [Mass/Vol] 0.57 mg/dL Normal 0.50-0.90 [facility] Comment on above: Performed By: #### C BCWD #### [facility] [address] [place] [address] GFR >60.0 Normal >60 [facility] Comment on above: Result Comment: Adán atric calculator link https://www.kidney.org/professionals/kdoqi/gfr_calculatorped Effective Nov 17, 2021 These results are not intended for use in patients <18 years of age. eGFR results are calculated without a race factor using the 2020 CKD-EPI equation. Careful clinical correlation is recommended, particularly when comparing to results calculated using previous equations. The CKD-EPI equation is less accurate in patients with extremes of muscle mass, extra-renal metabolism of creatinine, excessive creatinine ingestion, or following therapy that affects renal tubular secretion. Performed By: #### C BCWD #### [facility] [address] [place] [address] Glucose [Mass/Vol] 104 mg/dL Critically high 70-99 [facility] Comment on above: Performed By: #### C BCWD #### [facility] [address] [place] [address] Potassium [Moles/Vol] 4.0 mmol/L Normal 3.4-4.9 [facility] Comment on above: Performed By: #### C BCWD #### [facility] [address] [place] [address] Sodium [Moles/Vol] 138 mmol/L Normal 135-144 [facility] Comment on above: Performed By: #### C BCWD #### [facility] [address] [place] [address] Urea nitrogen [Mass/Vol] 12 mg/dL Normal 6-20 [facility] Comment on above: Performed By: #### C BCWD #### [facility] [address] [place] [address] CBC With Platelet and Differ entialon 12-02-2022 Anisocytosis Ql (Bld) 1+ Normal [facility] Comment on above: Performed By: #### C BCWD #### [facility] [address] [place] [address] Basophils (Bld) [#/Vol] 0.0 10*3/uL Normal 0.0-0.2 [facility] Comment on above: Performed By: #### C BCWD #### [facility] [address] [place] [address] Basophils/100 WBC (Bld) 1.0 % Normal [facility] Comment on above: Performed By: #### C BCWD #### [facility] [address] [place] [address] Eosinophils (Bld) [#/Vol] 0.2 10*3/uL Normal 0.0-0.7 [facility] Comment on above: Performed By: #### C BCWD #### [facility] [address] [place] [address] Eosinophils/100 WBC (Bld) 9.0 % Normal [facility] Comment on above: Performed By: #### C BCWD #### [facility] [address] [place] [address] Lymphocytes (Bld) [#/Vol] 0.9 10*3/uL Low 1.0-4.8 [facility] Comment on above: Performed By: #### C BCWD #### [facility] [address] [place] [address] Lymphocytes/100 WBC (Bld) 35.0 % Normal [facility] Comment on above: Performed By: #### C BCWD #### [facility] [address] [place] [address] Monocytes (Bld) [#/Vol] 0.1 10*3/uL Low 0.2-0.8 [facility] Comment on above: Performed By: #### C BCWD #### [facility] [address] [place] [address] Monocytes/100 WBC (Bld) 4.6 % Normal [facility] Comment on above: Performed By: #### C BCWD #### [facility] [address] [place] [address] Neutrophils (Bld) [#/Vol] 1.4 10*3/uL Normal 1.4-6.5 [facility] Comment on above: Performed By: #### C BCWD #### [facility] [address] [place] [address] Neutrophils/100 WBC (Bld) 50.0 % Normal [facility] Comment on above: Performed By: #### C BCWD #### [facility] [address] [place] [address] Ovalocytes 1+ Normal [facility] Comment on above: Performed By: #### C BCWD #### [facility] [address] [place] [address] Poikilocytosis 1+ Normal [facility] Comment on above: Performed By: #### C BCWD #### [facility] [address] [place] [address] Erythrocyte distribution width (RBC) [Ratio] 13.3 % Normal 11.5-14.5 [facility] Comment on above: Performed By: #### C BCWD #### [facility] [address] [place] [address] Hematocrit (Bld) [Volume fraction] 34.0 % Low 37.0-47.0 [facility] Comment on above: Performed By: #### C BCWD #### [facility] [address] [place] [address] Hemoglobin (Bld) [Mass/Vol] 11.8 g/dL Low 12.0-16.0 [facility] Comment on above: Performed By: #### C BCWD #### [facility] [address] [place] [address] MCH (RBC) [Entitic mass] 31.3 pg Normal 27.0-31.3 [facility] Comment on above: Performed By: #### C BCWD #### [facility] [address] [place] [address] MCHC 34.7 % Normal 33.0-37.0 [facility] Comment on above: Performed By: #### C BCWD #### [facility] [address] [place] [address] MCV (RBC) [Entitic vol] 90.2 fL Normal 79.4-94.8 [facility] Comment on above: Performed By: #### C BCWD #### [facility] [address] [place] [address] Platelets (Bld) [#/Vol] 201 10*3/uL Normal 130-400 [facility] Comment on above: Performed By: #### C BCWD #### [facility] [address] [place] [address] RBC (Bld) [#/Vol] 3.77 10*6/uL Low 4.20-5.40 [facility] Comment on above: Performed By: #### C BCWD #### [facility] [address] [place] [address] WBC (Bld) [#/Vol] 2.7 10*3/uL Low 4.8-10.8 [facility] Comment on above: Performed By: #### C BCWD #### [facility] [address] [place] [address] Magnesiumon 12-02-2022 Magnesium [Mass/Vol] 1.9 mg/dL Normal 1.7-2.4 [facility] Comment on above: Performed By: #### C BCWD #### [facility] [address] [place] [address] POCT Glucoseon 12-02-2022 Glucose [Mass/Vol] 115 mg/dL Critically high 70-99 [facility] Comment on above: Performed By: #### P GLU #### [facility] [address] [place] [address] POC Performed on ACCU-CHEK Normal [facility] Comment on above: Performed By: #### P GLU #### [facility] [address] [place] [address] Glucose [Mass/Vol] 94 mg/dL Normal 70-99 [facility] Comment on above: Performed By: #### P GLU #### [facility] [address] [place] [address] POC Performed on ACCU-CHEK Normal [facility] Comment on above: Performed By: #### P GLU #### [facility] [address] [place] [address] Glucose [Mass/Vol] 94 mg/dL Normal 70-99 [facility] Comment on above: Performed By: #### P GLU #### [facility] [address] [place] [address] POC Performed on ACCU-CHEK Normal [facility] Comment on above: Performed By: #### P GLU #### [facility] [address] [place] [address] Phosphoruson 12-02-2022 Phosphate [Mass/Vol] 3.7 mg/dL Normal 2.3-4.8 [facility] Comment on above: Performed By: #### P GLU #### [facility] [address] [place] [address] CNPNon 12-01-2022 CNPN Normal [facility] Metabolic Pane nestor 12-01-2022 Albumin [Mass/Vol] 3.7 g/dL Normal 3.5-4.6 [facility] Comment on above: Performed By: #### C BCWD #### [facility] [address] [place] [address] ALP [Catalytic activity/Vol] 62 U/L Normal 40-130 [facility] Comment on above: Performed By: #### C BCWD #### [facility] [address] [place] [address] ALT [Catalytic activity/Vol] 16 U/L Normal 0-33 [facility] Comment on above: Performed By: #### C BCWD #### [facility] [address] [place] [address] Anion gap [Moles/Vol] 7 mmol/L Low 9-15 [facility] Comment on above: Performed By: #### C BCWD #### [facility] [address] [place] [address] AST [Catalytic activity/Vol] 30 U/L Normal 0-35 [facility] Comment on above: Performed By: #### C BCWD #### [facility] [address] [place] [address] Bilirubin [Mass/Vol] 0.3 mg/dL Normal 0.2-0.7 [facility] Comment on above: Performed By: #### C BCWD #### [facility] [address] [place] [address] Calcium [Mass/Vol] 8.3 mg/dL Low 8.5-9.9 [facility] Comment on above: Performed By: #### C BCWD #### [facility] [address] [place] [address] Chloride [Moles/Vol] 106 mmol/L Normal 95-107 [facility] Comment on above: Performed By: #### C BCWD #### [facility] [address] [place] [address] CO2 [Moles/Vol] 23 mmol/L Normal 20-31 [facility] Comment on above: Performed By: #### C BCWD #### [facility] [address] [place] [address] Creatinine [Mass/Vol] 0.66 mg/dL Normal 0.50-0.90 [facility] Comment on above: Performed By: #### C BCWD #### [facility] [address] [place] [address] GFR >60.0 Normal >60 [facility] Comment on above: Result Comment: Adán atric calculator link https://www.kidney.org/professionals/kdoqi/gfr_calculatorped Effective Nov 17, 2021 These results are not intended for use in patients <18 years of age. eGFR results are calculated without a race factor using the 2020 CKD-EPI equation. Careful clinical correlation is recommended, particularly when comparing to results calculated using previous equations. The CKD-EPI equation is less accurate in patients with extremes of muscle mass, extra-renal metabolism of creatinine, excessive creatinine ingestion, or following therapy that affects renal tubular secretion. Performed By: #### C BCWD #### [facility] [address] [place] [address] Globulin (S) [Mass/Vol] 2.1 g/dL Low 2.3-3.5 [facility] Comment on above: Performed By: #### C BCWD #### [facility] [address] [place] [address] Glucose [Mass/Vol] 104 mg/dL Critically high 70-99 M [facility] Comment on above: Performed By: #### C BCWD #### [facility] [address] [place] [address] Potassium [Moles/Vol] 3.9 mmol/L Normal 3.4-4.9 [facility] Comment on above: Performed By: #### C BCWD #### [facility] [address] [place] [address] Protein [Mass/Vol] 5.8 g/dL Low 6.3-8.0 [facility] Comment on above: Performed By: #### C BCWD #### [facility] [address] [place] [address] Sodium [Moles/Vol] 136 mmol/L Normal 135-144 [facility] Comment on above: Performed By: #### C BCWD #### [facility] [address] [place] [address] Urea nitrogen [Mass/Vol] 6 mg/dL Normal 6-20 [facility] Comment on above: Performed By: #### C BCWD #### [facility] [address] [place] [address] Magnesiumon 12-01-2022 Magnesium [Mass/Vol] 2.0 mg/dL Normal 1.7-2.4 [facility] Comment on above: Performed By: #### C BCWD #### [facility] [address] [place] [address] POCT Glucoseon 12-01-2022 Glucose [Mass/Vol] 113 mg/dL Critically high 70-99 M [facility] Comment on above: Performed By: #### P GLU #### [facility] [address] [place] [address] POC Performed on ACCU-CHEK Normal [facility] Comment on above: Result Comment: Robby meneses RN or MD Performed By: #### P GLU #### [facility] [address] [place] [address] Phosphoruson 12-01-2022 Phosphate [Mass/Vol] 3.7 mg/dL Normal 2.3-4.8 [facility] Comment on above: Performed By: #### P GLU #### [facility] [address] [place] [address] Triglycerideson 12-01-2022 Triglyceride [Mass/Vol] 111 mg/dL Normal 0-150 [facility] Comment on above: Result Comment: ATP III Triglycerides Classification is Normal. Performed By: #### T RIG #### [facility] [address] [place] [address] Comprehensive Metabolic Pane nestor 11-30-2022 Albumin [Mass/Vol] 3.5 g/dL Normal 3.5-4.6 [facility] Comment on above: Performed By: #### C BCWD #### [facility] [address] [place] [address] ALP [Catalytic activity/Vol] 45 U/L Normal 40-130 [facility] Comment on above: Performed By: #### C BCWD #### [facility] [address] [place] [address] ALT [Catalytic activity/Vol] 15 U/L Normal 0-33 [facility] Comment on above: Result Comment: Spec imen hemolysis has exceeded the interference as defined by Kamran. Result may be affected. Suggest recollection if clinically indicated. Performed By: #### C BCWD #### [facility] [address] [place] [address] Anion gap [Moles/Vol] 6 mmol/L Low 9-15 [facility] Comment on above: Performed By: #### C BCWD #### [facility] [address] [place] [address] AST [Catalytic activity/Vol] 40 U/L Critically high 0-35 [facility] Comment on above: Result Comment: Spec imen hemolysis has exceeded the interference as defined by Kamran. Value may be falsely increased. Suggest recollection if clinically indicated. Performed By: #### C BCWD #### [facility] [address] [place] [address] Bilirubin [Mass/Vol] 0.3 mg/dL Normal 0.2-0.7 [facility] Comment on above: Performed By: #### C BCWD #### [facility] [address] [place] [address] Calcium [Mass/Vol] 8.3 mg/dL Low 8.5-9.9 [facility] Comment on above: Performed By: #### C BCWD #### [facility] [address] [place] [address] Chloride [Moles/Vol] 107 mmol/L Normal 95-107 [facility] Comment on above: Performed By: #### C BCWD #### [facility] [address] [place] [address] CO2 [Moles/Vol] 23 mmol/L Normal 20-31 [facility] Comment on above: Performed By: #### C BCWD #### [facility] [address] [place] [address] Creatinine [Mass/Vol] 0.69 mg/dL Normal 0.50-0.90 [facility] Comment on above: Performed By: #### C BCWD #### [facility] [address] [place] [address] GFR >60.0 Normal >60 [facility] Comment on above: Result Comment: Adán atric calculator link https://www.kidney.org/professionals/kdoqi/gfr_calculatorped Effective Nov 17, 2021 These results are not intended for use in patients <18 years of age. eGFR results are calculated without a race factor using the 2020 CKD-EPI equation. Careful clinical correlation is recommended, particularly when comparing to results calculated using previous equations. The CKD-EPI equation is less accurate in patients with extremes of muscle mass, extra-renal metabolism of creatinine, excessive creatinine ingestion, or following therapy that affects renal tubular secretion. Performed By: #### C BCWD #### [facility] [address] [place] [address] Globulin (S) [Mass/Vol] 1.9 g/dL Low 2.3-3.5 [facility] Comment on above: Performed By: #### C BCWD #### [facility] [address] [place] [address] Glucose [Mass/Vol] 86 mg/dL Normal 70-99 [facility] Comment on above: Performed By: #### C BCWD #### [facility] [address] [place] [address] Potassium [Moles/Vol] 4.6 mmol/L Normal 3.4-4.9 [facility] Comment on above: Result Comment: Spec imen hemolysis has exceeded the interference as defined by Kamran. Value may be falsely increased. Suggest recollection if clinically indicated. Performed By: #### C BCWD #### [facility] [address] [place] [address] Protein [Mass/Vol] 5.4 g/dL Low 6.3-8.0 [facility] Comment on above: Performed By: #### C BCWD #### [facility] [address] [place] [address] Sodium [Moles/Vol] 136 mmol/L Normal 135-144 [facility] Comment on above: Performed By: #### C BCWD #### [facility] [address] [place] [address] Urea nitrogen [Mass/Vol] 4 mg/dL Low 6-20 [facility] Comment on above: Performed By: #### C BCWD #### [facility] [address] [place] [address] IR PICC WO SQ PORT/PUMP > 5 YEARSon 11-30-2022 IR PICC WO SQ PORT/PUMP > 5 YEARS EXAMINATION: IR PICC WO SQ PORT/PUMP > 5 YEARS DATE AND TIME:11/30/2022 8:13 AM CLINICAL HISTORY: R10.9 Intractable abdominal pain ICD10 home iv nutrition COMPARISON: None available. Radiation dose: 2.73 mGy. After discussing the procedure and possible complications with the patient, informed consent was obtained. The patient was placed on the Special Procedures table. The right upper extremity was sterilely prepared using 2% chlorhexidine and then draped with sterile towels and a body-sized sterile drape. All personnel in the Special Procedures Room donned caps and surgical masks. In addition, the divider operator and cutting table operator first donned sterile gowns and gloves after proper hand cleansing. A pre-procedure time out was performed in order to assure the correct patient and procedure. Local anesthetic was administered. A peripheral vein was accessed with sonographic guidance. A sonographic spot image was obtained for documentation. A guidewire was advanced into the vein with fluoroscopic guidance and a sheath was placed over the guidewire. A 5-Nigerien dual-lumen PICC was advanced through the sheath, into the basilic vein, up the arm and into the central vasculature. It was positioned appropriately. The sheath was removed. The catheter was shown to aspirate and infuse properly. The flange of the catheter was affixed to the arm using a PICC securement device. A spot image of the chest showed the tip of the PICC line to lie in the right atrium. The patient tolerated the procedure well and without complications. CONCLUSION: SUCCESSFUL PICC PLACEMENT WITHOUT IMMEDIATE COMPLICATIONS. Interpreted by: Cedrick Billings MD Signed by: Cedrick Billings MD 11/30/22 Final result Normal [facility] Magnesiumon 11-30-2022 Magnesium [Mass/Vol] 1.9 mg/dL Normal 1.7-2.4 [facility] Comment on above: Performed By: #### P GLU #### [facility] [address] [place] [address] Phosphoruson 11-30-2022 Phosphate [Mass/Vol] 3.2 mg/dL Normal 2.3-4.8 [facility] Comment on above: Performed By: #### C BCWD #### [facility] [address] [place] [address] CBC With Platelet and Differ entialon 11-29-2022 Basophils (Bld) [#/Vol] 0.0 10*3/uL Normal 0.0-0.2 [facility] Comment on above: Performed By: #### P GLU #### [facility] [address] [place] [address] Basophils/100 WBC (Bld) 0.6 % Normal [facility] Comment on above: Performed By: #### P GLU #### [facility] [address] [place] [address] Eosinophils (Bld) [#/Vol] 0.1 10*3/uL Normal 0.0-0.7 [facility] Comment on above: Performed By: #### P GLU #### [facility] [address] [place] [address] Eosinophils/100 WBC (Bld) 4.4 % Normal [facility] Comment on above: Performed By: #### P GLU #### [facility] [address] [place] [address] Erythrocyte distribution width (RBC) [Ratio] 13.6 % Normal 11.5-14.5 [facility] Comment on above: Performed By: #### P GLU #### [facility] [address] [place] [address] Hematocrit (Bld) [Volume fraction] 36.4 % Low 37.0-47.0 [facility] Comment on above: Performed By: #### P GLU #### [facility] [address] [place] [address] Hemoglobin (Bld) [Mass/Vol] 12.2 g/dL Normal 12.0-16.0 [facility] Comment on above: Performed By: #### P GLU #### [facility] [address] [place] [address] Lymphocytes (Bld) [#/Vol] 1.3 10*3/uL Normal 1.0-4.8 [facility] Comment on above: Performed By: #### P GLU #### [facility] [address] [place] [address] Lymphocytes/100 WBC (Bld) 41.0 % Normal [facility] Comment on above: Performed By: #### P GLU #### [facility] [address] [place] [address] MCH (RBC) [Entitic mass] 30.9 pg Normal 27.0-31.3 [facility] Comment on above: Performed By: #### P GLU #### [facility] [address] [place] [address] MCHC 33.5 % Normal 33.0-37.0 [facility] Comment on above: Performed By: #### P GLU #### [facility] [address] [place] [address] MCV (RBC) [Entitic vol] 92.2 fL Normal 79.4-94.8 [facility] Comment on above: Performed By: #### P GLU #### [facility] [address] [place] [address] Monocytes (Bld) [#/Vol] 0.3 10*3/uL Normal 0.2-0.8 [facility] Comment on above: Performed By: #### P GLU #### [facility] [address] [place] [address] Monocytes/100 WBC (Bld) 9.8 % Normal [facility] Comment on above: Performed By: #### P GLU #### [facility] [address] [place] [address] Neutrophils (Bld) [#/Vol] 1.4 10*3/uL Normal 1.4-6.5 [facility] Comment on above: Performed By: #### P GLU #### [facility] [address] [place] [address] Neutrophils/100 WBC (Bld) 44.2 % Normal [facility] Comment on above: Performed By: #### P GLU #### [facility] [address] [place] [address] Platelets (Bld) [#/Vol] 242 10*3/uL Normal 130-400 [facility] Comment on above: Performed By: #### P GLU #### [facility] [address] [place] [address] RBC (Bld) [#/Vol] 3.95 10*6/uL Low 4.20-5.40 [facility] Comment on above: Performed By: #### P GLU #### [facility] [address] [place] [address] WBC (Bld) [#/Vol] 3.2 10*3/uL Low 4.8-10.8 [facility] Comment on above: Performed By: #### P GLU #### [facility] [address] [place] [address] Comprehensive Metabolic Pane nestor 11-29-2022 Albumin [Mass/Vol] 3.5 g/dL Normal 3.5-4.6 [facility] Comment on above: Performed By: #### P GLU #### [facility] [address] [place] [address] ALP [Catalytic activity/Vol] 60 U/L Normal 40-130 [facility] Comment on above: Performed By: #### P GLU #### [facility] [address] [place] [address] ALT [Catalytic activity/Vol] 15 U/L Normal 0-33 [facility] Comment on above: Performed By: #### P GLU #### [facility] [address] [place] [address] Anion gap [Moles/Vol] 8 mmol/L Low 9-15 [facility] Comment on above: Performed By: #### P GLU #### [facility] [address] [place] [address] AST [Catalytic activity/Vol] 28 U/L Normal 0-35 [facility] Comment on above: Performed By: #### P GLU #### [facility] [address] [place] [address] Bilirubin [Mass/Vol] mg/dL Normal 0.2-0.7 [facility] Comment on above: Performed By: #### P GLU #### [facility] [address] [place] [address] Calcium [Mass/Vol] 8.4 mg/dL Low 8.5-9.9 [facility] Comment on above: Performed By: #### P GLU #### [facility] [address] [place] [address] Chloride [Moles/Vol] 113 mmol/L Critically high 95-107 [facility] Comment on above: Performed By: #### P GLU #### [facility] [address] [place] [address] CO2 [Moles/Vol] 23 mmol/L Normal 20-31 [facility] Comment on above: Performed By: #### P GLU #### [facility] [address] [place] [address] Creatinine [Mass/Vol] 0.71 mg/dL Normal 0.50-0.90 [facility] Comment on above: Performed By: #### P GLU #### [facility] [address] [place] [address] GFR >60.0 Normal >60 [facility] Comment on above: Result Comment: Adán kennyelroy calculator link https://www.kidney.org/professionals/kdoqi/gfr_calculatorped Effective Nov 17, 2021 These results are not intended for use in patients <18 years of age. eGFR results are calculated without a race factor using the 2020 CKD-EPI equation. Careful clinical correlation is recommended, particularly when comparing to results calculated using previous equations. The CKD-EPI equation is less accurate in patients with extremes of muscle mass, extra-renal metabolism of creatinine, excessive creatinine ingestion, or following therapy that affects renal tubular secretion. Performed By: #### P GLU #### [facility] [address] [place] [address] Globulin (S) [Mass/Vol] 2.2 g/dL Low 2.3-3.5 [facility] Comment on above: Performed By: #### P GLU #### [facility] [address] [place] [address] Glucose [Mass/Vol] 85 mg/dL Normal 70-99 [facility] Comment on above: Performed By: #### P GLU #### [facility] [address] [place] [address] Potassium [Moles/Vol] 4.2 mmol/L Normal 3.4-4.9 [facility] Comment on above: Performed By: #### P GLU #### [facility] [address] [place] [address] Protein [Mass/Vol] 5.7 g/dL Low 6.3-8.0 [facility] Comment on above: Performed By: #### P GLU #### [facility] [address] [place] [address] Sodium [Moles/Vol] 144 mmol/L Normal 135-144 [facility] Comment on above: Performed By: #### P GLU #### [facility] [address] [place] [address] Urea nitrogen [Mass/Vol] 5 mg/dL Low 6-20 [facility] Comment on above: Performed By: #### P GLU #### [facility] [address] [place] [address] Lactic Acidon 11-29-2022 Lactate [Moles/Vol] 0.9 mmol/L Normal 0.5-2.2 [facility] Comment on above: Performed By: #### L IPAS #### [facility] [address] [place] [address] Lipaseon 11-29-2022 Lipase [Catalytic activity/Vol] 48 U/L Normal 12-95 [facility] Comment on above: Performed By: #### L IPAS #### [facility] [address] [place] [address] Magnesiumon 11-29-2022 Magnesium [Mass/Vol] 1.9 mg/dL Normal 1.7-2.4 [facility] Comment on above: Performed By: #### P GLU #### [facility] [address] [place] [address] Partial Thromboplastin Timeo n 11-29-2022 aPTT Coag (Bld) [Time] 33.0 s Normal 24.4-36.8 [facility] Comment on above: Result Comment: Effe ctive 12/20/2019: Heparin Therapeutic Range: 64.0 ? 98.0 seconds. Performed By: #### C BCWD #### [facility] [address] [place] [address] Phosphoruson 11-29-2022 Phosphate [Mass/Vol] 3.3 mg/dL Normal 2.3-4.8 [facility] Comment on above: Performed By: #### C BCWD #### [facility] [address] [place] [address] Prothrombin Timeon INR Coag (PPP) [Relative time] 1.2 {INR} Normal [facility] Comment on above: Performed By: #### P T #### [facility] [address] [place] [address] PT Coag (PPP) [Time] 15.6 s Critically high 12.3-14.9 [facility] Comment on above: Performed By: #### P T #### [facility] [address] [place] [address] Prealbuminon 11-28-2022 Prealbumin [Mass/Vol] 15.0 mg/dL Low 20.0-40.0 [facility] Comment on above: Order Comment: Colle ction has been rescheduled by DUEAS at 11/28/2022 18:15 Reason:Failed attempt at venipuncture Performed By: #### L IPAS #### [facility] [address] [place] [address] Amylaseon 11-27-2022 Amylase [Catalytic activity/Vol] 44 U/L Normal 22-93 [facility] Comment on above: Performed By: #### P GLU #### [facility] [address] [place] [address] CBC With Platelet and Differ entialon 11-27-2022 Basophils (Bld) [#/Vol] 0.0 10*3/uL Normal 0.0-0.2 [facility] Comment on above: Performed By: #### P GLU #### [facility] [address] [place] [address] Basophils/100 WBC (Bld) 0.7 % Normal [facility] Comment on above: Performed By: #### P GLU #### [facility] [address] [place] [address] Eosinophils (Bld) [#/Vol] 0.1 10*3/uL Normal 0.0-0.7 [facility] Comment on above: Performed By: #### P GLU #### [facility] [address] [place] [address] Eosinophils/100 WBC (Bld) 1.4 % Normal [facility] Comment on above: Performed By: #### P GLU #### [facility] [address] [place] [address] Erythrocyte distribution width (RBC) [Ratio] 13.3 % Normal 11.5-14.5 [facility] Comment on above: Performed By: #### P GLU #### [facility] [address] [place] [address] Hematocrit (Bld) [Volume fraction] 38.0 % Normal 37.0-47.0 [facility] Comment on above: Performed By: #### P GLU #### [facility] [address] [place] [address] Hemoglobin (Bld) [Mass/Vol] 12.7 g/dL Normal 12.0-16.0 [facility] Comment on above: Performed By: #### P GLU #### [facility] [address] [place] [address] Lymphocytes (Bld) [#/Vol] 1.4 10*3/uL Normal 1.0-4.8 [facility] Comment on above: Performed By: #### P GLU #### [facility] [address] [place] [address] Lymphocytes/100 WBC (Bld) 32.1 % Normal [facility] Comment on above: Performed By: #### P GLU #### [facility] [address] [place] [address] MCH (RBC) [Entitic mass] 30.6 pg Normal 27.0-31.3 [facility] Comment on above: Performed By: #### P GLU #### [facility] [address] [place] [address] MCHC 33.4 % Normal 33.0-37.0 [facility] Comment on above: Performed By: #### P GLU #### [facility] [address] [place] [address] MCV (RBC) [Entitic vol] 91.6 fL Normal 79.4-94.8 [facility] Comment on above: Performed By: #### P GLU #### [facility] [address] [place] [address] Monocytes (Bld) [#/Vol] 0.3 10*3/uL Normal 0.2-0.8 [facility] Comment on above: Performed By: #### P GLU #### [facility] [address] [place] [address] Monocytes/100 WBC (Bld) 6.0 % Normal [facility] Comment on above: Performed By: #### P GLU #### [facility] [address] [place] [address] Neutrophils (Bld) [#/Vol] 2.6 10*3/uL Normal 1.4-6.5 [facility] Comment on above: Performed By: #### P GLU #### [facility] [address] [place] [address] Neutrophils/100 WBC (Bld) 59.6 % Normal [facility] Comment on above: Performed By: #### P GLU #### [facility] [address] [place] [address] Platelets (Bld) [#/Vol] 238 10*3/uL Normal 130-400 [facility] Comment on above: Performed By: #### P GLU #### [facility] [address] [place] [address] RBC (Bld) [#/Vol] 4.15 10*6/uL Low 4.20-5.40 [facility] Comment on above: Performed By: #### P GLU #### [facility] [address] [place] [address] WBC (Bld) [#/Vol] 4.4 10*3/uL Low 4.8-10.8 [facility] Comment on above: Performed By: #### P GLU #### [facility] [address] [place] [address] CT ABDOMEN PELVIS W IV CONTR Daljit 11-27-2022 CT ABDOMEN PELVIS W IV CONTRAST EXAMINATION: CT OF THE ABDOMEN AND PELVIS WITH CONTRAST 11/27/2022 11:35 am TECHNIQUE: CT of the abdomen and pelvis was performed with the administration of intravenous contrast. Multiplanar reformatted images are provided for review. Automated exposure control, iterative reconstruction, and/or weight based adjustment of the mA/kV was utilized to reduce the radiation dose to as low as reasonably achievable. COMPARISON: None. HISTORY: ORDERING SYSTEM PROVIDED HISTORY: gastric bypass history. recent surgery epi/luq pain TECHNOLOGIST PROVIDED HISTORY: Additional Contrast?->Oral Reason for exam:->gastric bypass history. recent surgery epi/luq pain Decision Support Exception - unselect if not a suspected or confirmed emergency medical condition->Emergency Medical Condition (MA) What reading provider will be dictating this exam?->CRC FINDINGS: Clinical informed: Previous gastric bypass procedure in January 2022. Also had previous cholecystectomy, appendectomy, hysterectomy previous gastric sleeve partial gastrectomy. Status post gastric bypass procedure. The gastrojejunal anastomosis is patent. The secluded segment of the stomach appears unremarkable. Oral contrast was given and has reached the proximal/mid jejunum. The oral contrast not head reached the ileum or of the. There are no acute inflammatory changes in the omental/mesenteric free intraperitoneal air ascites or indication for bowel obstruction. Some fluid contents seen in the right-sided colon and in the transverse colon and semi solid fecal contents seen in the left-sided colon can indicate a impending or mild diarrhea condition to be correlated clinically. The sigmoid colon/rectum is most decompressed the time present study. There normal size and portal venous contrast enhancement for the liver. Multifocal hypodense/no enhancing/hypoenhancin g lesions are present in the liver, they are scattered throughout liver parenchyma, they have variable size, the largest lesion measures up to 1.8 cm. They are simple density cysts. These more lesions cannot be proper evaluate due partial volume of relation but most likely the also represent simple cysts. There is no previous studies available for comparison to determine baseline Patient had previous cholecystectomy. The intrahepatic biliary radicles are mildly distended. The common hepatic duct is mild dilated but the common bile duct has normal diameter and appearance in the head of the pancreas to the level of the papilla. There are normal size and uniform contrast enhancement for the pancreas. Peripancreatic fat planes are preserved. The pancreatic duct is not dilated. The spleen has unremarkable appearance. Adrenal glands are not enlarged. Kidneys are preserved size and cortical thickness. There is no renal calculus. There is normal cortical/parenchymal enhancement for the kidneys. The bladder is moderate distended, it appears unremarkable. Patient had previous hysterectomy. There appears to be minimal fluid accumulation in the cul-de-sac. Cannot conspicuously identified the ovaries on this study or separate the ovaries from adjacent bowel segments. Aorta and IVC appear unremarkable. There is no midline retro peritoneal adenopathy. Lower lung bases appear unremarkable. Visualized bone structures have unremarkable appearance. IMPRESSION: 1. Status post gastric bypass procedure. Patent gastrojejunal anastomosis. 2. Semi solid fluid contents in the left-sided colon and fluid contents in the right-sided colon and transverse colon can impending diarrhea like condition to be correlate clinically. No pericolonic inflammatory process or signs of colitis are seen. 3. No free intraperitoneal air. 4. Status post cholecystectomy, no dilatation the distal bile or of the ductal system. 5. No obstructive uropathy. Interpreted by: Iker Ayala MD Signed by: Iker Ayala MD 11/27/22 Final result Normal [facility] CTA CHEST W WO CONTRASTon CTA CHEST W WO CONTRAST EXAMINATION: CTA OF THE CHEST WITH AND WITHOUT CONTRAST 11/27/2022 11:35 am TECHNIQUE: CTA of the chest was performed before and after the administration of intravenous contrast. Multiplanar reformatted images are provided for review. MIP images are provided for review. Automated exposure control, iterative reconstruction, and/or weight based adjustment of the mA/kV was utilized to reduce the radiation dose to as low as reasonably achievable. COMPARISON: None. HISTORY: ORDERING SYSTEM PROVIDED HISTORY: PE TECHNOLOGIST PROVIDED HISTORY: Reason for exam:->PE Decision Support Exception - unselect if not a suspected or confirmed emergency medical condition->Emergency Medical Condition ([place]) What reading provider will be dictating this exam?->CRC FINDINGS: The right lung parenchyma shows no focal parenchymal abnormalities no pleural effusions. No pneumothoraces. The left lung parenchyma shows no focal parenchymal abnormalities no pleural. No pneumothoraces The heart great vessels are intact. No aortic dissection. No significant periaortic, pretracheal, parahilar or subcarinal adenopathy. No gross central, proximal or proximal-subsegmental pulmonary emboli. In the field of view the abdomen there are multiple areas of low attenuation within the right left lobes of liver. The largest measures approximately 1.7 cm. The gallbladder surgically absent. Prior bariatric surgery noted. Correlate with patient's surgical history. Visualized osseous structures are intact IMPRESSION: NO FINDINGS OF CENTRAL, PROXIMAL PROXIMAL-SEGMENTAL PULMONARY EMBOLI. MULTIPLE AREAS OF LOW ATTENUATION IN THE LIVER LIVER. LIKELY HEPATIC CYSTS. CLINICALLY INDICATED CONSIDER FOLLOW-UP ULTRASOUND TO FURTHER EVALUATE Interpreted by: Jason Mcrae MD Signed by: Jason Mcrae MD 11/27/22 Final result Normal [facility] Comprehensive Metabolic Pane nestor 11-27-2022 Albumin [Mass/Vol] 4.0 g/dL Normal 3.5-4.6 [facility] Comment on above: Performed By: #### P GLU #### [facility] [address] [place] [address] ALP [Catalytic activity/Vol] 60 U/L Normal 40-130 [facility] Comment on above: Performed By: #### P GLU #### [facility] [address] [place] [address] ALT [Catalytic activity/Vol] 20 U/L Normal 0-33 [facility] Comment on above: Performed By: #### P GLU #### [facility] [address] [place] [address] Anion gap [Moles/Vol] 10 mmol/L Normal 9-15 [facility] Comment on above: Performed By: #### P GLU #### [facility] [address] [place] [address] AST [Catalytic activity/Vol] 34 U/L Normal 0-35 [facility] Comment on above: Performed By: #### P GLU #### [facility] [address] [place] [address] Bilirubin [Mass/Vol] 0.4 mg/dL Normal 0.2-0.7 [facility] Comment on above: Performed By: #### P GLU #### [facility] [address] [place] [address] Calcium [Mass/Vol] 8.4 mg/dL Low 8.5-9.9 [facility] Comment on above: Performed By: #### P GLU #### [facility] [address] [place] [address] Chloride [Moles/Vol] 108 mmol/L Critically high 95-107 [facility] Comment on above: Performed By: #### P GLU #### [facility] [address] [place] [address] CO2 [Moles/Vol] 20 mmol/L Normal 20-31 [facility] Comment on above: Performed By: #### P GLU #### [facility] [address] [place] [address] Creatinine [Mass/Vol] 0.68 mg/dL Normal 0.50-0.90 [facility] Comment on above: Performed By: #### P GLU #### [facility] [address] [place] [address] GFR >60.0 Normal >60 [facility] Comment on above: Result Comment: Pedi atric calculator link https://www.kidney.org/professionals/kdoqi/gfr_calculatorped Effective Nov 17, 2021 These results are not intended for use in patients <18 years of age. eGFR results are calculated without a race factor using the 2020 CKD-EPI equation. Careful clinical correlation is recommended, particularly when comparing to results calculated using previous equations. The CKD-EPI equation is less accurate in patients with extremes of muscle mass, extra-renal metabolism of creatinine, excessive creatinine ingestion, or following therapy that affects renal tubular secretion. Performed By: #### P GLU #### [facility] [address] [place] [address] Globulin (S) [Mass/Vol] 2.3 g/dL Normal 2.3-3.5 [facility] Comment on above: Performed By: #### P GLU #### [facility] [address] [place] [address] Glucose [Mass/Vol] 82 mg/dL Normal 70-99 [facility] Comment on above: Performed By: #### P GLU #### [facility] [address] [place] [address] Potassium [Moles/Vol] 3.7 mmol/L Normal 3.4-4.9 [facility] Comment on above: Performed By: #### P GLU #### [facility] [address] [place] [address] Protein [Mass/Vol] 6.3 g/dL Normal 6.3-8.0 [facility] Comment on above: Performed By: #### P GLU #### [facility] [address] [place] [address] Sodium [Moles/Vol] 138 mmol/L Normal 135-144 [facility] Comment on above: Performed By: #### P GLU #### [facility] [address] [place] [address] Urea nitrogen [Mass/Vol] 8 mg/dL Normal 6-20 [facility] Comment on above: Performed By: #### P GLU #### [facility] [address] [place] [address] High Sensitivity Troponin To n 11-27-2022 High Sensitivity Troponin T <6 Normal 0-19 [facility] Comment on above: Result Comment: High Sensitivity Troponin values cannot be compared with other Troponin methodologies. Performed By: #### T RP5 #### [facility] [address] [place] [address] High Sensitivity Troponin T <6 Normal 0-19 [facility] Comment on above: Result Comment: High Sensitivity Troponin values cannot be compared with other Troponin methodologies. Performed By: #### P GLU #### [facility] [address] [place] [address] Lactic Acidon 11-27-2022 Lactate [Moles/Vol] 1.0 mmol/L Normal 0.5-2.2 [facility] Comment on above: Performed By: #### P GLU #### [facility] [address] [place] [address] Lipaseon 11-27-2022 Lipase [Catalytic activity/Vol] 37 U/L Normal 12-95 [facility] Comment on above: Performed By: #### P GLU #### [facility] [address] [place] [address] Magnesiumon 11-27-2022 Magnesium [Mass/Vol] 1.9 mg/dL Normal 1.7-2.4 [facility] Comment on above: Performed By: #### P GLU #### [facility] [address] [place] [address] POCT Venouson 11-27-2022 Creatinine [Mass/Vol] 0.9 mg/dL Normal 0.6-1.2 [facility] Comment on above: Performed By: #### L IPAS #### [facility] [address] [place] [address] GFR >60 Normal >60 [facility] Comment on above: Result Comment: Huberi atric calculator link https://www.kidney.org/professionals/kdoqi/gfr_calculatorped Effective Nov 17, 2021 These results are not intended for use in patients <18 years of age. eGFR results are calculated without a race factor using the 2020 CKD-EPI equation. Careful clinical correlation is recommended, particularly when comparing to results calculated using previous equations. The CKD-EPI equation is less accurate in patients with extremes of muscle mass, extra-renal metabolism of creatinine, excessive creatinine ingestion, or following therapy that affects renal tubular secretion. Performed By: #### L IPAS #### [facility] [address] [place] [address] POC Performed on SEE BELOW Normal [facility] Comment on above: Result Comment: Perf ormed on POC Performed By: #### L IPAS #### [facility] [address] [place] [address] POC Sample Type KIRA Normal [facility] Comment on above: Performed By: #### L IPAS #### [facility] [address] [place] [address] Urinalysis, reflex to cultur ryder 11-27-2022 Bilirubin Ql (U) Negative Normal Negative [facility] Comment on above: Performed By: #### P GLU #### [facility] [address] [place] [address] Clarity (U) Clear Normal Clear [facility] Comment on above: Performed By: #### P GLU #### [facility] [address] [place] [address] Color (U) Yellow Normal Straw/Major [facility] Comment on above: Performed By: #### P GLU #### [facility] [address] [place] [address] Glucose Ql (U) Negative Normal Negative [facility] Comment on above: Performed By: #### P GLU #### [facility] [address] [place] [address] Hemoglobin Ql (U) Negative Normal Negative [facility] Comment on above: Performed By: #### P GLU #### [facility] [address] [place] [address] Ketones Ql (U) Negative Normal Negative [facility] Comment on above: Performed By: #### P GLU #### [facility] [address] [place] [address] Leukocyte esterase Test strip Ql (U) Negative Normal Negative [facility] Comment on above: Performed By: #### P GLU #### [facility] [address] [place] [address] Nitrite Ql (U) Negative Normal Negative [facility] Comment on above: Performed By: #### P GLU #### [facility] [address] [place] [address] pH (U) 7.5 [pH] Normal 5.0-9.0 [facility] Comment on above: Performed By: #### P GLU #### [facility] [address] [place] [address] Protein Ql (U) Negative Normal Negative [facility] Comment on above: Performed By: #### P GLU #### [facility] [address] [place] [address] Specific gravity (U) [Rel density] 1.026 Normal 1.005-1.03 [facility] Comment on above: Performed By: #### P GLU #### [facility] [address] [place] [address] Urine Reflexed to Culture Not Indicated Normal [facility] Comment on above: Performed By: #### P GLU #### [facility] [address] [place] [address] Urobilinogen Qn (U) 0.2 {Munir'U}/dL Normal < 2.0 [facility] Comment on above: Performed By: #### P GLU #### [facility] [address] [place] [address] CNNURSEon 11-26-2022 CNNURSE Nurse Visit ([facility]) ABBEY GARCIA ([id number]) 1990 Jania SMALLS Date Time Provider Department 11/26/22 7:00 AM JENNIFER GILLESPIE [facility] During your visit today, we recorded the following information about you: Temperature Pulse Blood pressure 96.1 degrees 60/minute 126/72 Jennifer Gillespie RN 11/26/2022 10:37 AM Signed Patient in office for hydration infusion. Patient tolerated infusion well. Allergies As of Date: 11/26/2022 Noted Allergy Reaction ADHESIVE TAPE-SILICONES 02/07/2020 5 - Intolerance Comments: Sensitive to certain adhesive tapes. Redness and itchy. CODEINE 10/04/2019 8 - GI Upset NSAIDS (NON-STEROIDAL ANTI-INFLAM*01/29/2022 15 - Contraindication-Medic al Nance* Comments: S/p RYGB Date Reviewed: 11/26/2022 Reviewed by: Jennifer Gillespie, DEE - Fully Assessed Reason for Visit: Dehydration [812] Primary Visit Diagnosis:Dehydration [E86.0] Prescriptions as of 11/26/2022 - acetaminophen (TYLENOL) 500 mg tablet Take 2 tablets by mouth every 6 hours as needed for pain or fever (specify). - ALBUTEROL INHALATION Inhale as instructed. - busPIRone (BUSPAR) 10 mg tablet Take 1 tablet by mouth twice daily. - cholecalciferol (VITAMIN D-3) 50 mcg (2,000 unit) tablet Take 1 tablet by mouth once daily. - docusate sodium (COLACE) 100 mg capsule Take 1 capsule by mouth three times daily. decrease the dose or stop for diarrhea - escitalopram oxalate (LEXAPRO) 20 mg tablet Take 1 tablet by mouth once daily. - fluticasone propion/salmeterol (ADVAIR HFA INHALATION) Inhale as instructed. - hydrOXYzine HCl (ATARAX) 25 mg tablet TAKE 1 TABLET BY MOUTH TWICE A DAY NEEDED FOR ANXIETY /INSOMNIA - levothyroxine (SYNTHROID) 100 mcg tablet Take 1 tablet by mouth once daily. - linaclotide (LINZESS) 145 mcg capsule Take 1 capsule by mouth DAILY (6 AM). - liothyronine (CYTOMEL) 5 mcg tablet Take 5 mcg by mouth once daily. - methocarbamol 1,000 mg tablet Take 1 tablet by mouth three times a day as needed. - metoclopramide HCl (REGLAN) 5 mg tablet Take 1 tablet by mouth before meals and at bedtime. - mirtazapine (REMERON) 15 mg tablet Take 1 tablet by mouth daily at bedtime. - multivitamin tablet Take 1 tablet by mouth. Bariatric chewable 2 a day - NIFEdipine XL (ADALAT CC) 30 mg 24 hr tablet Take 1 tablet by mouth once daily. - omeprazole (PRILOSEC) 40 mg capsule TAKE 1 CAPSULE BY MOUTH NEEDED - ondansetron (ZOFRAN) 4 mg tablet Take 1 tablet by mouth every 8 hours as needed for nausea/vomiting. - polyethylene glycol 3350 (MIRALAX) 17 gram/dose powder Take 17 g by mouth twice daily. reduced the dose or stop if you get diarrhea and restart after 48 hours to maintain 'at least' once a day bowel movement. Dissolve dose in 4 - 8 ounces of liquid and take as directed. - sucralfate (CARAFATE) 1 gram tablet Take 1 tablet by mouth four times daily. - topiramate (TOPAMAX) 100 mg tablet Take 100 mg by mouth twice daily. - traMADol (ULTRAM) 50 mg tablet Take 1 tablet by mouth every 12 hours as needed for up to 3 days. - Zinc Gluconate 50 mg tablet Take 1 tablet by mouth once daily. Problem List As Of Date 11/26/2022 Noted Resolved Chronic nausea [R11.0] 09/25/2019 Regurgitation of food [R11.10] 09/25/2019 Heartburn [R12] 09/25/2019 Preoperative examination [Z01.818] 09/25/2019 Class 1 obesity without serious comorbidity wit*09/25/2019 Benign essential HTN [I10] 09/25/2019 GERD (gastroesophageal reflux disease) [K21.9] Hypothyroid [E03.9] RICHAR on CPAP [G47.33] PCOS (polycystic ovarian syndrome) [E28.2] Anemia [D64.9] Malaise and fatigue [R53.81, R53.83] 10/06/2019 Chronic bilateral low back pain without sciatic*10/06/2019 Vertigo [R42] 10/06/2019 Obesity, Class II, BMI 35-39.9 [E66.9] 10/13/2019 11/29/2020 Back pain [M54.9] 10/15/2019 Duodenogastric reflux of bile [K21.9] 11/16/2019 Moderate episode of recurrent major depressive *11/21/2019 01/03/2020 Panic disorder without agoraphobia [F41.0] 11/21/2019 Trauma and stressor-related disorder [F43.9] 11/21/2019 ARSALAN (generalized anxiety disorder) [F41.1] 01/03/2020 Moderate recurrent major depression (HCC) [F33.*01/03/2020 Situational stress [F43.9] 01/03/2020 Right upper quadrant abdominal pain [R10.11] 01/31/2020 Abdominal pain [R10.9] 02/01/2020 04/08/2020 Intractable upper abdominal pain [R10.10] 04/05/2020 Malnutrition of mild degree (HCC) [E44.1] 04/06/2020 Abnormal finding on imaging of liver [R93.2] 04/07/2020 Asthma [J45.909] 08/21/2020 Obesity [E66.9] 09/03/2020 11/29/2020 History of sleeve gastrectomy [Z90.3] 09/05/2020 Acute abdominal pain [R10.9] 12/21/2020 06/23/2022 Gastric ulcer [K25.9] 2014 Ventral hernia without obstruction or gangrene *03/13/2021 Gastric reflux [K21.9] 01/29/2022 PONV (postoperative nausea and vomiting) [R11.2*01/29/2022 Intractable nausea and vomiting [R11.2] 06/20/2022 06/23/2022 Cons (more content not included)... Normal [facility] US MESENTERIC ARTERY CMPLT V LABon 11-26-2022 US MESENTERIC ARTERY CMPLT VAS LAB Non-Invasive Vascular Laboratory [facility] Renal or Mesenteric Duplex Bilateral/Complete Date of service/time: 11/26/2022 9:56:51 AM Name: MRS. ABBEY GARCIA Date of : 1990 Age: 32 years Gender: F Clinical Indication Abdominal pain. TECHNIQUE -------- A visceral duplex ultrasound examination was performed, including grayscale imaging and color Doppler and spectral Doppler examination of the below mentioned arteries and veins. FINDINGS -------- Celiac origin PSV: 308 cm/s. EDV: 115 cm/s. Celiac proximal PSV: 229 cm/s. EDV: 52 cm/s. Celiac mid PSV: 225 cm/s. EDV: 65 cm/s. Hepatic proximal PSV: 96 cm/s. EDV: 26 cm/s. Superior mesenteric artery origin PSV: 145 cm/s. EDV: 18 cm/s. Superior mesenteric artery proximal PSV: 201 cm/s. EDV: 21 cm/s. Superior mesenteric artery mid PSV: 239 cm/s. EDV: 36 cm/s. Superior mesenteric artery distal PSV: 129 cm/s. EDV: 22 cm/s. Inferior mesenteric artery origin PSV: 122 cm/s. EDV: 22 cm/s. Inferior mesenteric artery proximal PSV: 120 cm/s. EDV: 25 cm/s. Inferior mesenteric artery mid PSV: 149 cm/s. EDV: 34 cm/s. IMPRESSION MESENTERIC VESSELS Celiac: 70-99% stenosis. Splenic: Unable to visualize. Superior mesenteric artery: 0-69% stenosis. No evidence of hemodynamically significant stenosis. Inferior mesenteric artery: 0-69% stenosis. No evidence of hemodynamically significant stenosis. Technologist: Edilia Lerner RVS Ordering physician: DEACON KAT Interpreting physician: Emmy Martinez MD, RPBENNETT Final CC [employer] [facility] Image : [id number] [id number] See Link below for Image Normal [facility] Ambulatory Visit Summaryon 1 Ambulatory Visit Summary ABBEY GARCIA :1990 Visit Date:11/25/2022 Ambulatory Visit Instructions Your Diagnosis BMI 29.0-29.9,adult Non-smoker Your Care Team Attending Physician - Jaquan Paula Primary Care Physician - Jaquan Paula This Is Your Medications List busPIRone (busPIRone 10 mg Tab) escitalopram (escitalopram 20 mg Tab) levothyroxine (levothyroxine 100 mcg (0.1 mg) Tab) liothyronine (liothyronine 5 mcg Tab) mirtazapine (mirtazapine 15 mg Tab) ondansetron (Zofran 4 mg Tab) promethazine (promethazine 25 mg Tab) topiramate (Topamax 100 mg Tab) tramadol (traMADOL 50 mg Tab) Procedures Performed Endoscopic retrograde cholangiopancreatograp hy (ERCP); diagnostic, including collection of specimen(s) by brushing or washing, when performed (separate procedure) (11/11/2022), Laparoscopy, abdomen, peritoneum, and omentum, diagnostic, with or without collection of specimen(s) by brushing or washing (separate procedure) (11/11/2022), Esophagogastroduodenos copy, flexible, transoral; diagnostic, including collection of specimen(s) by brushing or washing, when performed (separate procedure) (10/27/2022), Revision (01/29/2022), Gastric sleeve (02/15/2021), Esophagogastroduodenos copy (01/20/2021), Hysterectomy (11/04/2020), Appendectomy, Cholecystectomy, Colonoscopy. Discharge Vitals Heart Rate (Peripheral) 76 Respiratory Rate 18 Blood Pressure 124/80 Height 168 cm Height 66 in Weight 82.55 kg Weight 181.61 lb BMI 29.25 What to do next Scheduled Follow-Up Appointments Wednesday 1:40 PM EDT With: Harrison JOHNSON, [place] [address] Where: [facility] Normal [address] [place] [address]- \.br\ Medications\.b r\ What How Much When Why Instructions\. br\ Unchanged busPIRone (busPIRone 10 mg Tab) 1 Tablets By Mouth 2 times a day\.br\ Unchanged escitalopram (escitalopram 20 mg Tab) 1 Tablets By Mouth Every day\.br\ Unchanged levothyroxine (levothyroxine 100 mcg (0.1 mg) Tab) 1 Tablets By Mouth Every day Thyroid disorder\.br\ Unchanged liothyronine (liothyronine 5 mcg Tab) 5 Microgram By Mouth Every day\.br\ Unchanged mirtazapine (mirtazapine 15 mg Tab) 1 Tablets By Mouth Once a day (at bedtime)\.br\ Unchanged ondansetron (Zofran 4 mg Tab) 1 Tablets By Mouth Every 6 hours as needed for Nausea Take one tab by mouth every six hours as needed for nausea \.br\ Unchanged promethazine (promethazine 25 mg Tab) 1 Tablets By Mouth 3 times a day\.br\ Unchanged topiramate (Topamax 100 mg Tab) By Mouth 2 times a day\.br\ Unchanged tramadol (traMADOL 50 mg Tab) 1 Tablets By Mouth Every 8 hours as needed for Pain Pickup at [id number]\.br\ Pharmacy Information\.b r\ [id number]: [address], [place] [phone]\.br\ Allergies\.br\ NSAIDs (Unknown)\.br\ codeine (unknown)\.br\ Problems\.br\ Ongoing - Any problem that you are currently receiving treatment for.\.br\ Abnormal thyroid blood test\.br\ Arthritis\.br\ Asthma\.br\ BMI 30.0-30.9,adul t\.br\ Depression\.br \ Dysfunction of sphincter of Oddi\.br\ Fatigue\.br\ Gall stone\.br\ Hyperthyroidis m\.br\ Hypothyroid\.b r\ Kidney cysts\.br\ Kidney stone\.br\ LUQ pain\.br\ Malnourished\. br\ Mixed incontinence urge and stress\.br\ Nausea\.br\ Rash of body\.br\ Renal cyst\.br\ Right flank pain\.br\ Status post surgery\.br\ Historical - Any problem that you are no longer receiving treatment for.\.br\ Allergic rhinitis\.br\ Anemia\.br\ Hypothyroidism \.br\ Metabolic syndrome\.br\ PCOS- polycystic ovary syndrome\.br\ \.br\ Salvador [facility] CNPRadha 11-25-2022 CNPN Telephone (CCFVO) ABBEY GARCIA ([id number]) 1990 F CHT Date Time Provider Department 11/25/22 [facility] During your visit today, we recorded the following information about you: Kristin Hu RN 11/25/2022 12:56 PM Signed Left message confirming pts appt tomorrow in the chronic care clinic for hydration. Allergies As of Date: 11/25/2022 Noted Allergy Reaction ADHESIVE TAPE-SILICONES 02/07/2020 5 - Intolerance Comments: Sensitive to certain adhesive tapes. Redness and itchy. CODEINE 10/04/2019 8 - GI Upset NSAIDS (NON-STEROIDAL ANTI-INFLAM*01/29/2022 15 - Contraindication-Medic al Nance* Comments: S/p RYGB Date Reviewed: 11/23/2022 Reviewed by: Steve Galo MD - Fully Assessed Prescriptions as of 11/25/2022 - acetaminophen (TYLENOL) 500 mg tablet Take 2 tablets by mouth every 6 hours as needed for pain or fever (specify). - ALBUTEROL INHALATION Inhale as instructed. - busPIRone (BUSPAR) 10 mg tablet Take 1 tablet by mouth twice daily. - cholecalciferol (VITAMIN D-3) 50 mcg (2,000 unit) tablet Take 1 tablet by mouth once daily. - docusate sodium (COLACE) 100 mg capsule Take 1 capsule by mouth three times daily. decrease the dose or stop for diarrhea - escitalopram oxalate (LEXAPRO) 20 mg tablet Take 1 tablet by mouth once daily. - fluticasone propion/salmeterol (ADVAIR HFA INHALATION) Inhale as instructed. - hydrOXYzine HCl (ATARAX) 25 mg tablet TAKE 1 TABLET BY MOUTH TWICE A DAY NEEDED FOR ANXIETY /INSOMNIA - levothyroxine (SYNTHROID) 100 mcg tablet Take 1 tablet by mouth once daily. - linaclotide (LINZESS) 145 mcg capsule Take 1 capsule by mouth DAILY (6 AM). - liothyronine (CYTOMEL) 5 mcg tablet Take 5 mcg by mouth once daily. - methocarbamol 1,000 mg tablet Take 1 tablet by mouth three times a day as needed. - metoclopramide HCl (REGLAN) 5 mg tablet Take 1 tablet by mouth before meals and at bedtime. - mirtazapine (REMERON) 15 mg tablet Take 1 tablet by mouth daily at bedtime. - multivitamin tablet Take 1 tablet by mouth. Bariatric chewable 2 a day - NIFEdipine XL (ADALAT CC) 30 mg 24 hr tablet Take 1 tablet by mouth once daily. - omeprazole (PRILOSEC) 40 mg capsule TAKE 1 CAPSULE BY MOUTH NEEDED - ondansetron (ZOFRAN) 4 mg tablet Take 1 tablet by mouth every 8 hours as needed for nausea/vomiting. - polyethylene glycol 3350 (MIRALAX) 17 gram/dose powder Take 17 g by mouth twice daily. reduced the dose or stop if you get diarrhea and restart after 48 hours to maintain 'at least' once a day bowel movement. Dissolve dose in 4 - 8 ounces of liquid and take as directed. - sucralfate (CARAFATE) 1 gram tablet Take 1 tablet by mouth four times daily. - topiramate (TOPAMAX) 100 mg tablet Take 100 mg by mouth twice daily. - traMADol (ULTRAM) 50 mg tablet Take 1 tablet by mouth every 12 hours as needed for up to 3 days. - Zinc Gluconate 50 mg tablet Take 1 tablet by mouth once daily. Facility-Administered Medications as of 11/25/2022 - NaCl 0.9% 2,000 mL iv bolus Problem List As Of Date 11/25/2022 Noted Resolved Chronic nausea [R11.0] 09/25/2019 Regurgitation of food [R11.10] 09/25/2019 Heartburn [R12] 09/25/2019 Preoperative examination [Z01.818] 09/25/2019 Class 1 obesity without serious comorbidity wit*09/25/2019 Benign essential HTN [I10] 09/25/2019 GERD (gastroesophageal reflux disease) [K21.9] Hypothyroid [E03.9] RICHAR on CPAP [G47.33] PCOS (polycystic ovarian syndrome) [E28.2] Anemia [D64.9] Malaise and fatigue [R53.81, R53.83] 10/06/2019 Chronic bilateral low back pain without sciatic*10/06/2019 Vertigo [R42] 10/06/2019 Obesity, Class II, BMI 35-39.9 [E66.9] 10/13/2019 11/29/2020 Back pain [M54.9] 10/15/2019 Duodenogastric reflux of bile [K21.9] 11/16/2019 Moderate episode of recurrent major depressive *11/21/2019 01/03/2020 Panic disorder without agoraphobia [F41.0] 11/21/2019 Trauma and stressor-related disorder [F43.9] 11/21/2019 ARSALAN (generalized anxiety disorder) [F41.1] 01/03/2020 Moderate recurrent major depression (HCC) [F33.*01/03/2020 Situational stress [F43.9] 01/03/2020 Right upper quadrant abdominal pain [R10.11] 01/31/2020 Abdominal pain [R10.9] 02/01/2020 04/08/2020 Intractable upper abdominal pain [R10.10] 04/05/2020 Malnutrition of mild degree (HCC) [E44.1] 04/06/2020 Abnormal finding on imaging of liver [R93.2] 04/07/2020 Asthma [J45.909] 08/21/2020 Obesity [E66.9] 09/03/2020 11/29/2020 History of sleeve gastrectomy [Z90.3] 09/05/2020 Acute abdominal pain [R10.9] 12/21/2020 06/23/2022 Gastric ulcer [K25.9] 2014 Ventral hernia without obstruction or gangrene *03/13/2021 Gastric reflux [K21.9] 01/29/2022 PONV (postoperative nausea and vomiting) [R11.2*01/29/2022 Intractable nausea and vomiting [R11.2] 06/20/2022 06/23/2022 Constipation [K59.00] 06/21/2022 Bipolar disor (more content not included)... 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 They are hoping for her to have surgery tomorrow. Surgeon has advised her to come today to get refill on tramadol and once she has surgery he will take back over the rx for tramadol. pt is only eating Jello and pudding. Going for infusion tomorrow before procedure. History of Present Illness pt is scheduled with surgeon tomorrow for diagnostic testing for MAL syndrome. Review of Systems PHQ Score Initial Depression Screen Score: 0 ROS - Provider Constitutional: no fever, no chills, no sweats, no fatigue Respiratory: no shortness of breath, no cough, no orthopnea, no wheezing. Cardiovascular: no chest pain, no palpitations, no edema. Neurologic: no headache, no dizziness, no numbness, no weakness. abdominal pain, bloating, nausea, Physical Exam Vitals & Measurements HR: 76(Peripheral) RR: 18 BP: 124/80 SpO2: 98% HT: 66 in HT: 168 cm WT: 82.55 kg WT: 181.61 lb BMI: 29.25 General: alert, no acute distress ENMT: oral mucosa moist, no pharyngeal erythema or exudate Cardiovascular: regular rate and rhythm, normal peripheral perfusion Respiratory: Lungs CTA, respirations non labored Extremities: no deformity, no trauma Neurological: oriented x 4, LOC appropriate for age, CN II-XII intact, motor strength equal & normal bilaterally, speech normal pt is pale and weak Assessment/Plan 1. 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 pt will get more information tomorrow. will send trazadone. surgeon states he will take over pain management after surgery. all questions answered. RTC as needed 2. BMI 29.0-29.9,adult (Z68.29: Body mass index [BMI] 29.0-29.9, adult) bmi education complete 3. Non-smoker (Z78.9: Other specified health status) continue not smoking Orders: tramadol, 50 mg = 1 tab(s), Oral, q8hr, PRN Pain, # 30 tab(s), Refills(s) 0, [id number], 168, cm, 11/25/22 11:03:00 EDT, Height/Length Dosing, 82.5, kg, 11/25/22 11:03:00 EDT, Weight Dosing Follow-up No qualifying data available Problem List/Past Medical History Ongoing Abnormal thyroid blood test Arthritis Asthma BMI 30.0-30.9,adult Depression Dysfunction of sphincter of Oddi Fatigue Gall stone Hyperthyroidism Hypothyroid Kidney cysts Kidney stone LUQ pain Malnourished Median arcuate ligament syndrome Mixed incontinence urge and stress Nausea Rash of body Renal cyst Right flank pain Status post surgery Historical Allergic rhinitis Anemia Hypothyroidism Metabolic syndrome PCOS- polycystic ovary syndrome Procedure/Surgical History Endoscopic retrograde cholangiopancreatograp hy (ERCP); diagnostic, including collection of specimen(s) by brushing or washing, when performed (separate procedure) (11/11/2022), Laparoscopy, abdomen, peritoneum, and omentum, diagnostic, with or without collection of specimen(s) by brushing or washing (separate procedure) (11/11/2022), Esophagogastroduodenos copy, flexible, transoral; diagnostic, including collection of specimen(s) by brushing or washing, when performed (separate procedure) (10/27/2022), Revision (01/29/2022), Gastric sleeve (02/15/2021), Esophagogastroduodenos copy (01/20/2021), Hysterectomy (11/04/2020), Appendectomy, Cholecystectomy, Colonoscopy. Medications busPIRone 10 mg Tab, 10 mg= 1 tab(s), Oral, BID escitalopram 20 mg Tab, 20 mg= 1 tab(s), Oral, Daily levothyroxine 100 mcg (0.1 mg) Tab, 100 mcg= 1 tab(s), Oral, Daily, 1 refills liothyronine 5 mcg Tab, 5 mcg, Oral, Daily, 1 refills mirtazapine 15 mg Tab, 15 mg= 1 tab(s), Oral, Once a day (at bedtime) promethazine 25 mg Tab, 25 mg= 1 tab(s), Oral, TID Topamax 100 mg Tab, Oral, BID traMADOL 50 mg Tab, 50 mg= 1 tab(s), Oral, q8hr, PRN Zofran 4 mg Tab, 4 mg= 1 tab(s), Oral, q6hr, PRN Allergies NSAIDs (Unknown) codeine (unknown) Social History Alcohol - Denies Alcohol Use, 12/20/2020 Substance Abuse - Denies Substance Abuse, 12/20/2020 Tobacco - Denies Tobacco Use, 12/20/2020 Never (less than 100 in lifetime) Tobacco Use:. Never Smokeless Tobacco Use:. Ready to change: No. Household tobacco concerns: No., 11/25/2022 Family History Alcoholism: Brother. Asthma: Brother. Diabetes clinic: Father. Diabetes mellitus type 2: Mother. High cholesterol: Mother. Hypertension: Mother, F (more content not included)... Normal [facility] Comment on above: Result Comment: Elec tronically Signed By: Jaquan Paula\.br\Date and Time Signed: 11/25/22 13:56 EDT [facility] 11-25-19 [facility] Case Information Case Priority: None Programs: -- Referral Source: [facility] [place] Referral Reason: Care coordination Case Type: Transition Care Management Risk Score: -- Case Status: Enrolled (October 29, 2022) Date Assigned: October 29, 2022 Assigned By: Raegan Felder Date Enrolled: October 29, 2022 Assigned Primary Personnel: Raegan Felder Assigned Secondary Personnel: Robin Dunn RN, Gita Case Physician: Jaquan Paula Problems Ongoing Abnormal thyroid blood test Arthritis Asthma BMI 30.0-30.9,adult Depression Dysfunction of sphincter of Oddi Fatigue Gall stone Hyperthyroidism Hypothyroid Kidney cysts Kidney stone LUQ pain Malnourished Mixed incontinence urge and stress Nausea Rash of body Renal cyst Right flank pain Status post surgery Historical Allergic rhinitis Anemia Hypothyroidism Metabolic syndrome PCOS- polycystic ovary syndrome Procedure/Surgical History Endoscopic retrograde cholangiopancreatograp hy (ERCP); diagnostic, including collection of specimen(s) by brushing or washing, when performed (separate procedure) (11/11/2022), Laparoscopy, abdomen, peritoneum, and omentum, diagnostic, with or without collection of specimen(s) by brushing or washing (separate procedure) (11/11/2022), Esophagogastroduodenos copy, flexible, transoral; diagnostic, including collection of specimen(s) by brushing or washing, when performed (separate procedure) (10/27/2022), Revision (01/29/2022), Gastric sleeve (02/15/2021), Esophagogastroduodenos copy (01/20/2021), Hysterectomy (11/04/2020), Appendectomy, Cholecystectomy, Colonoscopy. Home Medications busPIRone 10 mg Tab, 10 mg= 1 tab(s), Oral, BID escitalopram 20 mg Tab, 20 mg= 1 tab(s), Oral, Daily levothyroxine 100 mcg (0.1 mg) Tab, 100 mcg= 1 tab(s), Oral, Daily, 1 refills liothyronine 5 mcg Tab, 5 mcg, Oral, Daily, 1 refills mirtazapine 15 mg Tab, 15 mg= 1 tab(s), Oral, Once a day (at bedtime) promethazine 25 mg Tab, 25 mg= 1 tab(s), Oral, TID Topamax 100 mg Tab, Oral, BID Zofran 4 mg Tab, 4 mg= 1 tab(s), Oral, q6hr, PRN Allergies NSAIDs (Unknown) codeine (unknown) Social History Alcohol - Denies Alcohol Use, 12/20/2020 Substance Abuse - Denies Substance Abuse, 12/20/2020 Tobacco - Denies Tobacco Use, 12/20/2020 Never (less than 100 in lifetime) Tobacco Use:. Never Smokeless Tobacco Use:. Ready to change: No. Household tobacco concerns: No., 11/16/2022 Family History Alcoholism: Brother. Asthma: Brother. Diabetes clinic: Father. Diabetes mellitus type 2: Mother. High cholesterol: Mother. Hypertension: Mother, Father and Brother. Hypothyroidism: Father. Kidney stone: Brother. Mitral valve disorder: Negative: Father. Screenings and Assessments 10/29/22 10:40:00 Result Name Value Comment Phone Call Monitoring Consent Agreed to continue call Phone Verification Patient Information Full name, street address and date of verified CM Program Enrollment Provides verbal consent for enrollment Goals and Interventions Care Plan Progress Note TCM#3- Patient states she has been having kind of a tough week. 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 She has follow up US on to confirm, if positive she may proceed with surgery ([facility]). Patient continues to receive fluids/vitamins via IV on weekly at [place]. Notes she is trying to eat smaller more frequent meals, 5-6 through out the day, noted so far so good today. Notes she is sleeping okay. No issues or concerns with bowels or urinary system. Surgeon instructed pt to follow up with PCP for pain medication management. She has an ER visits f/u with PCP on 12/01, she is requesting s sooner appointment with Jaquan. Appt. made for 11/25. Patient denies further questions or concerns at this time. Communication Events Date: November 24, 2022 Method: Phone call Type: Outbound Duration (min): 7 Outcome: Case discussion Contact Type: care transition coordinator Contact Name: Robin Dunn Notes: TCM#3- Spoke with patient for tcm program call status update, see case summary note. Created By: Robin Dunn Date: November 09, 2022 Method: Phone call Type: Inbound Duration (min): 5 Outcome: Case discussion Contact Type: Patient Contact Name: JOSEABBEY Bray Notes: TCM#2- Spoke with patient for TCM program call status update, see case summary note. Created By: Robin Dunn Date: November 09, 2022 Method: Phone call Type: Outbound Duration (min): 1 Outcome: Left message-voicemail Contact Type: care transition coordinator Contact Name: -- Notes: TCM#2- Attemtped to reach patient for TCM program call status update, left VM for return call. Created By: Robin Dunn Date: October 29, 2022 Method: Phone call Type: Outbound Duration (min): 11 Outcome: Case discussion Contact Type: care transition coordinator Contact Name: Myesha Felder (more content not included)... Normal [facility] Basic metabolic 2000 panelon 11-23-2022 Anion gap [Moles/Vol] 12 mmol/L Normal 9-18 [facility] Comment on above: Order Comment: Speci men Type: BLOOD SPECIMENOrdering Facility: [facility] Address: [address] [place] [address] Performed By: #### 2 4321-2, , 80221-8 ####[facility] LABORATORYCLIA [id number] [facility] [place] [address] [place] Calcium [Mass/Vol] 8.4 mg/dL Low 8.5-10.2 [facility] Comment on above: Order Comment: Speci men Type: BLOOD SPECIMENOrdering Facility: [facility] Address: [address] [address] Performed By: #### 2 4321-2, , 93552-8 ####[facility] LABORATORYCLIA [id number] [place] [address] [place] Chloride [Moles/Vol] 107 mmol/L High 97-105 [facility] Comment on above: Order Comment: Speci men Type: BLOOD SPECIMENOrdering Facility: [facility] Address: [address] [place] [address] Performed By: #### 2 4321-2, 20150-7, 42987-6 ####[facility] LABORATORYCLIA [id number] [place] [address] [place] CO2 [Moles/Vol] 19 mmol/L Low 22-30 [facility] Comment on above: Order Comment: Speci men Type: BLOOD SPECIMENOrdering Facility: [facility] Address: [address] [place] [address] Performed By: #### 2 4321-2, , 37286-5 ####[facility] LABORATORYSOUTHWEST[facility] [id number] [place] [id number] [place] Creatinine [Mass/Vol] 0.71 mg/dL Normal 0.58-0.96 [facility] Comment on above: Order Comment: Speci men Type: BLOOD SPECIMENOrdering Facility: [facility] Address: [address] [place] [address] Performed By: #### 2 4321-2, , 41722-2 ####[facility] LABORATORYIA [id number] [place] [address] [facility] [facility] Creatinine and Glomerular filtration rate.predicted panel (S/P/Bld) 115 mL/min/1.73m??? Normal >=60 [facility] l Comment on above: Order Comment: Speci men Type: BLOOD SPECIMENOrdering Facility: [facility] Address: [address] [place] [address] Result Comment: Rashmi mated Glomerular Filtration Rate (eGFR) is calculated using the 2020 CKD-EPI creatinine equation. This equation utilizes serum creatinine, sex, and age as parameters. The creatinine assay has traceable calibration to isotope dilution-mass spectrometry. Refer to KDIGO guidelines for clinical interpretation. In patients with unstable renal function, e.g. those with acute kidney injury, the eGFR may not accurately reflect actual GFR. Performed By: #### 2 4321-2, , 17922-3 ####[facility]ENTERIA [id number] [place] [address] [place] Glucose [Mass/Vol] 105 mg/dL High 74-99 [facility] Comment on above: Order Comment: Geraldo marrero Type: BLOOD SPECIMENOrdering Facility: [facility] Address: [address] [place] [address] Result Comment: The [place] Diabetes Association (ADA) provides guidance for cutoff values for fasting glucose and random glucose. The ADA defines fasting as no caloric intake for at least 8 hours. Fasting plasma glucose results between 100 to 125 mg/dL indicate increased risk for diabetes (prediabetes). Fasting plasma glucose results greater than or equal to 126 mg/dL meet the criteria for diagnosis of diabetes. In the absence of unequivocal hyperglycemia, results should be confirmed by repeat testing. In a patient with classic symptoms of hyperglycemia or hyperglycemic crisis, random plasma glucose results greater than or equal to 200 mg/dL meet the criteria for diagnosis of diabetes. Reference: Standards of Medical Care in Diabetes 2016, [place] Diabetes Association. Diabetes Care. 2016.39(Suppl 1). Performed By: #### 2 4321-2, , 31106-4 ####[facility]ENTERIA [id number] [place] [address] [place] Potassium [Moles/Vol] 3.8 mmol/L Normal 3.7-5.1 [facility] Comment on above: Order Comment: Geraldo [facility] Type: BLOOD SPECIMENOrdering Facility: [facility] Address: [address] [place] [address] Performed By: #### 2 4321-2, , 08781-3 ####[facility]IA [id number] [place] [address] [place] Sodium [Moles/Vol] 138 mmol/L Normal 136-144 [facility] Comment on above: Order Comment: Geraldo [facility] Type: BLOOD SPECIMENOrdering Facility: [facility] Address: [address] [place], [place] [address] [address] Performed By: #### 2 4321-2, 99786-6, 16409-3 ####[facility] LABORATORYCLIA [id number] [place] [address] [facility] Urea nitrogen [Mass/Vol] 7 mg/dL Normal 7-21 [facility] Comment on above: Order Comment: Speci men Type: BLOOD SPECIMENOrdering Facility: [facility] Address: [address] [place] [address] Performed By: #### 2 4321-2, , 99676-4 ####[facility] LABORATORYCLIA [id number] [place] [address] [facility] CASE MGT INIT ASSESon 2022 CASE MGT INIT ASSES HNO ID: [id number] Author: Alina Cueva RN Service: ? Author Type: Registered Nurse Type: Care Mgt Initial Assessment Filed: 11/23/2022 9:34 AM Note Text: CARE MANAGEMENT: ASSESSMENT AND DISCHARGE PLAN SERVICE DATE: November 23, 2022 SERVICE TIME: 9:00 am PCP: Jaquan Morrow Primary Contact: Extended Emergency Contact Information Primary Emergency Contact: JoseMelisa bray Address: [address] [place] Relation: Spouse Admission Status: Observation Insurance Provider: [employer] SUPER[employer] PPO Discharge Planning requested by: Per Department Practice Potential Transition Plans Home;No Services Indicated Advance Directives Current Advance Directive: Health Care Power of Supervisor Title In Chart: Yes Up To Date and Valid: Yes Current Living Arrangements and Support Lives with: Spouse/significant other Type of Residence: Private Residence (House) Does the patient have to climb stairs at home?: Yes Support: Spouse/significant other How do you manage to accomplish the following: Independent: Ambulation;Bathe/Showe r;Dress;Meals/Meal Prep;Going to the bathroom;Medication Management;Transportat ion to appointments/community Current Services/Equipment Current Post-Acute Service(s): None Discharge Planning Patient Goal(s): General wellness Jackson of Choice Explained: Jackson of Choice Given: No Reason Not Given: No placements necessary Are you interested in bedside delivery of your medications? Yes Discharge Planning Participant(s): Patient Patient/Family Comments: I've been having a really hard time lately Caregiver Assessment: Caregiver is ready, willing and able to meet the patient's needs as recommended by the inter-professional team: No Caregiver needed Transport at Discharge: Transportation Arrangements: Car Destination: home Needs Prior to Discharge: Needs Prior to Discharge: None Post-Acute Discharge Plan: Introduced self to pt and explained CM role. Pt states she has had quite a difficult time recently and been in and out of the hospital with abdominal pain. Pt lives with her who she states is supportive. Pt shared with this CM she has not been able to work due to her medical issues and they have been experiencing financial strain stating they could not make their house payment this past month. Pt agreeable to receiving resources for assistance, SW has been notified and will provide pt with financial resources. Pt denies any other needs at this time, is independent with ADL's. CM/SW will continue to follow. SIGNATURE: Alina Cueva RN PATIENT NAME: Abbey Garcia DATE: November 23, 2022 TIME: 9:32 AM CONTACT #: [phone] Normal [facility] CBC panel Auto (Bld)on 11-23 Erythrocyte distribution width (RBC) [Ratio] 13.6 % Normal 11.5-15.0 [facility] Comment on above: Order Comment: Geraldo marrero Type: BLOOD SPECIMENOrdering Facility: [facility] Address: [address] [place] [address] Performed By: #### 5 8410-2 ####[facility] LABORATORYCLIA [id number] [place] [address] [place] Hematocrit (Bld) [Volume fraction] 36.4 % Normal 36.0-46.0 [facility] Comment on above: Order Comment: Geraldo marrero Type: BLOOD SPECIMENOrdering Facility: [facility] Address: [address] [place] [address] Performed By: #### 5 8410-2 ####[facility] LABORATORYCLIA [id number] [place] [address] [place] Hemoglobin (Bld) [Mass/Vol] 11.8 g/dL Normal 11.5-15.5 [facility] Comment on above: Order Comment: Speci men Type: BLOOD SPECIMENOrdering Facility: [facility] Address: [address] [place] [address] Performed By: #### 5 8410-2 ####[facility] LABORATORYIA [id number] [address] [place] MCH (RBC) [Entitic mass] 30.4 pg Normal 26.0-34.0 [facility] Comment on above: Order Comment: Speci men Type: BLOOD SPECIMENOrdering Facility: [facility] Address: [address] [place] [address] Performed By: #### 5 8410-2 ####[facility]IA [id number] [address] [place] MCHC (RBC) [Mass/Vol] 32.4 g/dL Normal 30.5-36.0 [facility] Comment on above: Order Comment: Speci men Type: BLOOD SPECIMENOrdering Facility: [facility] Address: [address] [place] [address] Performed By: #### 5 8410-2 ####[facility] [id number] [address] [place] MCV (RBC) [Entitic vol] 93.8 fL Normal 80.0-100.0 [facility] Comment on above: Order Comment: Speci men Type: BLOOD SPECIMENOrdering Facility: [facility] Address: [address] [place] [address] Performed By: #### 5 8410-2 ####[facility] [id number] [address] [place] Nucleated RBC (Bld) [#/Vol] 10*3/uL Normal <0.01 [facility] Comment on above: Order Comment: Speci men Type: BLOOD SPECIMENOrdering Facility: [facility] Address: [address] [place] [address] Performed By: #### 5 8410-2 ####[facility] LABORATORYIA [id number] [place] [address] [place] Platelet mean volume (Bld) [Entitic vol] 10.9 fL Normal 9.0-12.7 [facility] Comment on above: Order Comment: Speci men Type: BLOOD SPECIMENOrdering Facility: [facility] Address: [address] [place] [address] Performed By: #### 5 8410-2 ####[facility] [id number] [place] [address] [place] Platelets (Bld) [#/Vol] 217 10*3/uL Normal 150-400 [facility] Comment on above: Order Comment: Speci men Type: BLOOD SPECIMENOrdering Facility: [facility] Address: [address] [place] [address] Performed By: #### 5 8410-2 ####[facility] [id number] [place] [address] [place] RBC (Bld) [#/Vol] 3.88 10*6/uL Low 3.90-5.20 [facility] Comment on above: Order Comment: Speci men Type: BLOOD SPECIMENOrdering Facility: [facility] Address: [address] [place] [address] Performed By: #### 5 8410-2 ####[facility]ENTERIA [id number] [place] [address] [place] WBC (Bld) [#/Vol] 3.45 10*3/uL Low 3.70-11.00 [facility] Comment on above: Order Comment: Speci men Type: BLOOD SPECIMENOrdering Facility: [facility] Address: [address] [place] [address] Performed By: #### 5 8410-2 ####[facility]ENTERIA [id number] [place] [address] [facility] [place] CNDSon 11-23-2022 CNDS HNO ID: [id number] Author: Steve Galo MD Service: Hospital Medicine Author Type: Physician Type: Discharge Summary Filed: 11/23/2022 11:50 AM Note Text: DISCHARGE SUMMARY PATIENT NAME: Abbey Garcia ADMISSION DATE: 11/22/2022 DISCHARGE DATE: 11/23/2022 ATTENDING PHYSICIAN: Steve Galo MD Code Status: Full Code PCP: Jaquan Morrow Highest Readmission Risk Score: 20 The 30 day readmissions risk score is derived from an internally validated risk model which evaluates patient level characteristics, utilization history, medication orders and lab results up until the day of discharge. Patients with a score of 40 or above are considered highest risk for readmission. Specific patient level drivers will be listed at the bottom of the summary. TRANSITIONS OF CARE CRITICAL ISSUES: PAULA MEDICATION CHANGES: N/A LAB MONITORING NEEDED: Not applicable IMAGING FOLLOW-UP: Not applicable LABS AND PROCEDURES PENDING AT DISCHARGE: No pending results. FOLLOW UP: Primary care physician and pain management REASON FOR HOSPITALIZATION: Right upper quadrant pain PRINCIPAL DIAGNOSIS: Right upper quadrant pain SECONDARY DIAGNOSIS: Principal Problem: Intractable upper abdominal pain (POA: Yes) Active Problems: Chronic nausea (POA: Yes) GERD (gastroesophageal reflux disease) (POA: Yes) RICHAR on CPAP (POA: Yes) Duodenogastric reflux of bile (POA: Yes) ARSALAN (generalized anxiety disorder) (POA: Yes) Moderate recurrent major depression (HCC) (POA: Yes) History of sleeve gastrectomy (POA: Yes) Gastric ulcer (POA: Yes) Ventral hernia without obstruction or gangrene (POA: Yes) Constipation (POA: Yes) 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 * HOSPITAL COURSE: Abbey Garcia is a 32 year old female presented with past medical history of HTN, BMI > 30 s/p gastric sleeve, 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 She represented at on 11/17-07/07 with uncontrolled epigastric pain and nausea, labs and CT overall not significant for an acute process and was admitted for pain controlled, pt was Rx with IVF and seen by [facility] and thought to be MSK related. Pt presents at [place] today for similar symptoms of intermittent upper abd pain (RUQ and epigastric) with mild nausea and decrease appetite for the last 3-4 days, and worsen with sharp pain after eating, describes as pressure sensation, associated with N/V and unable to eat. Patient was placed on pain medication and GI consulted. GI evaluated the patient and stated that all of her work-up is already done and there is no new finding. GI cleared patient for discharge and signed off. Patient discharged home to follow-up with her primary care physician and pain management patient basis. OPERATIONS/PROCEDURE DURING THIS HOSPITALIZATION: * No surgery found * No other procedures CONSULTS DURING HOSPITALIZATION: Treatment Team: Attending Provider: Steve Galo MD Consulting: Moira Fair MD Orders Placed This Encounter Smoking Cessation Education Physician Consult MU FOLLOW UP PROVIDER FOR SUMMARY OF CARE - MU MEASURE PATIENT CONDITION AT DISCHARGE: Stable ADVANCE CARE PLANNING DISCUSSION (if applicable): N/A DISCHARGE DISPOSITION: Home with Self Care Discharge Physical Exam: VITAL SIGNS: BP 110/61 Pulse 63 Temp 36.5 ?C (97.7 ?F) (Oral) Resp 19 Ht 167.6 cm (5' 6 ) Wt 82.4 kg (181 lb 10.5 oz) LMP 08/19/2020 SpO2 100% BMI 29.32 kg/m? Physical Exam Performed: General appearance: Well appearing, alert and orientedx3, in no acute distress. Skin: color, texture, turgor normal Head: Normocephalic, no masses, lesions Eyes: PERRLA. Neck: Supple, no bruits Lungs: Clear to auscultation. No wheezing, rhonchi, rales. Cardiac: RRR, no murmur, gallop, or rubs Abdomen: Healed surgical scars present. Mild right upper quadrant tenderness, no rebound tenderness. Bowel sounds normal Extremities: No deformities, edema, skin discoloration Musculoskeletal: No joint swelling, deformity, or tenderness Neuro: No focal neurologic deficit WOUND/SURGICAL SITE CARE: None SUPPLIES OR EQUIPMENT: None DIET: Resume pre-hospital diet Low-fat diet ACTIVITY AND EXERCISE: Resume pre-hospital activity as tolerated ADDITIONAL INFORMATION: FOLLOW UP APPOINTMENTS: Future Appointments Date Time Provider Department Center 11/24/2022 11:00 AM [facility]Marie Mitchell [facility]/30/[facility]22 11:30 AM [facility] 12/22/2022 1:30 PM Miguel Young MD [facility] 01/01/2023 3:00 PM Rylee Thacker APRN.OBGYN HOSPITALIST PHYSICIAN [facility] 02/05/2023 8:30 AM Deacon Kat MD [facility] 02/09/2023 10:00 AM [facility] 02/22/2023 7:00 AM Ronaldo Nichole MD [facility] ALLERGIES Allergen Reactions Adhesive Tape-Silic* Intolerance Sen (more content not included)... Normal [facility] CNPNon 11-23-2022 CNPN Normal [facility] CONSULTon 11-23-2022 CONSULT HNO ID: [id number] Author: Ann Anderson APRN.BETH Service: Gastroenterology Author Type: Nurse Practitioner Type: Consults Filed: 11/23/2022 11:47 AM Note Text: GI INITIAL CONSULT NOTE SERVICE DATE: 11/23/2022 SERVICE TIME: 1059 REASON FOR CONSULT: intractable upper abd pain REQUESTING PHYSICIAN: Suellen Lamb CNP PRIMARY CARE PHYSICIAN: Jaquan Morrow ASSESSMENT/PLAN 1.) Right upper quadrant abdominal pain (POA: Yes) 2.) N/V - nothing since admission 3.) Chronic issues with constipation - on linzess Assessment AND Plan: 32 year old female with h/o MDD, ARSALAN, PTSD, obesity s/p gastric bypass, GERD, PCOS, RICHAR who presented for ongoing right sided abdominal pain along with N/V. Please see detailed report per HPI No leukocytosis Hgb 11.8 LFTs/Lipase wnl Multiple abdominal imagining, CT yesterday no acute process - Stool burden noted on CT Abd exam exam benign - as long as talking throughout assessment Of note, patient has had 8+ ER visits over the past month at multiple hospitals including [facility], [place], [place] ED, and [facility] PDMP/Narx score 460: 31 prescriptions for narcotics filled over the past 9-10 months with 19 different prescribers at 3 different pharmacies Plan: -colon flush (can be done at home), narcotics likely contributing to symptoms. Discussed with pt - continue PPI, Reglan, anti-emetics - can consider GES as OP, normal 2020 but with recent EGD findings would repeat No urgent GI needs, has had extensive GI workup. OP follow up with Dr. Kat 11/[address] Hu Active Problems: Nausea (POA: Yes) GERD (gastroesophageal reflux disease) (POA: Yes) Hypothyroid (POA: Yes) ARSALAN (generalized anxiety disorder) (POA: Yes) Moderate recurrent major depression (HCC) (POA: Yes) H/O gastric bypass (POA: Yes) Subjective Ms. Garcia is a 32 year old female with PMHx of MDD, ARSALAN, PTSD, obesity s/p gastric bypass, GERD, PCOS, RICHAR, reports biceps tear s/p repair 08/25/22 who presented with abdominal pain for which GI is being consulted. Pt well known to our service from recently. Hx of gastric bypass, follows with Dr. Kat. EGD 10/27 unremarkable with some ?hypomotility. ERCP 11/[address] Santiago - felt good for short period after and then stated started to advance diet and RUQ pain returned. States some N/V prior to admission but nothing since. Chronic issues with constipation, on linzess stopped taking Wednesday or Wednesday because she was starting to have pain. Anytime she tries to advance diet she starts having this pain. Denies black or blood stools. Denies hematemesis or coffee ground emesis. OV 11/04/22 Dr. Kat, bariatric surgery Abbey Garcia is a 32 year old female with RUQ pain INTERVAL HPI: Multiple ED visits for nausea, vomiting, back pain Admitted 10/25/2022-10/28/2022 for possible hypomotility . In my discussion with her she describes abdominal pain that is on the right-hand side only with a slight extension to the epigastrium. It is severe and spasmodic and is mostly occurring after she eats although there is some persistence when she is not eating. It has not been caused by or relieved by bowel function. It does radiate to the tip of her shoulder blade on the right-hand side. For the most part her bowel functions been normal over the last day she has had slightly looser bowel movements. She does feel dehydrated with decreased frequency of urination and severe fatigue from her nausea and vomiting. She had an upper endoscopy as described below which was normal as well as a CT abdomen pelvis which demonstrated some mild biliary dilation status post cholecystectomy. She has a remote cholecystectomy more than 5 years ago. On my personal review of her CT abdomen pelvis from oct 25 images her JJ anastomosis in the normal location I do not see any inflammation around the GJ or around the right upper quadrant there are clips and evidence of prior cholecystectomy and there is mild CBD dilation, not a typical postcholecystectomy. IMAGING UPDATE: 10/25/2022 CT ABD/PEL W IVCON IMPRESSION: No acute abdominal or pelvic process is identified. Multiple hepatic cysts. Subcentimeter, low-attenuation lesion seen within liver are too small to characterize but statistically relate to subcentimeter cysts. Evidence of prior gastric bypass surgery. No bowel obstruction. Moderate stool burden. Incidentally noted is a 3.4 cm left adnexal cyst RESULT: Liver: There are multiple hepatic cysts again seen. Additionally, there are subcentimeter, low-attenuation lesions again seen within the liver, which are too small to characterize but statistically relate to subcentimeter cysts. Biliary: The patient is status post cholecystectomy. Again seen is mild biliary dilation, likely related to the cholecystectomy. Spleen: No mass. No splenomegaly. Pancreas: There is no obvious foc (more content not included)... Normal [facility] Hepatic function 2000 panelo n 11-23-2022 Albumin [Mass/Vol] 3.5 g/dL Low 3.9-4.9 [facility] osfaisal Comment on above: Order Comment: Geraldo marrero Type: BLOOD SPECIMENOrdering Facility: [facility] Address: [address] [place] [address] Performed By: #### 2 4321-2, , 73274-5 ####[facility] LABORATORYCLIA [id number] [place] [address] [place] ALP [Catalytic activity/Vol] 58 U/L Normal 34-123 [facility] Comment on above: Order Comment: Geraldo marrero Type: BLOOD SPECIMENOrdering Facility: [facility] Address: [address] [place] [address] Performed By: #### 2 4321-2, , 03842-4 ####[facility] LABORATORYCLIA [id number] [place] [address] [place] ALT [Catalytic activity/Vol] 17 U/L Normal 7-38 [facility] Comment on above: Order Comment: Speci men Type: BLOOD SPECIMENOrdering Facility: [facility] Address: [address] [place] [address] Performed By: #### 2 4321-2, , 68536-4 ####[facility] LABORATORYCLIA [id number] [place] [address] [place] AST [Catalytic activity/Vol] 34 U/L Normal 13-35 [facility] Comment on above: Order Comment: Speci men Type: BLOOD SPECIMENOrdering Facility: [facility] Address: [address] [place] [address] Performed By: #### 2 4321-2, , ####[facility] [id number] [place] [address] [place] Bilirubin [Mass/Vol] 0.4 mg/dL Normal 0.2-1.3 [facility] Comment on above: Order Comment: Speci men Type: BLOOD SPECIMENOrdering Facility: [facility] Address: [address] [place] [address] Performed By: #### 2 4321-2, , ####[facility] LABORATORYIA [id number] [place] [address] [place] Bilirubin.conjugated [Mass/Vol] mg/dL Normal <0.2 [facility] Comment on above: Order Comment: Speci men Type: BLOOD SPECIMENOrdering Facility: [facility] Address: [address] [place] [address] Performed By: #### 2 4321-2, , 73222-3 ####[facility] LABORATORYIA [id number] [place] [address] [place] Protein [Mass/Vol] 5.9 g/dL Low 6.3-8.0 [facility] ospital Comment on above: Order Comment: Speci men Type: BLOOD SPECIMENOrdering Facility: [facility] Address: [address] [place] [address] Performed By: #### 2 4321-2, , 70646-1 ####[facility]ENTERIA [id number] [place] [address] [place] Magnesium SerPl-mCncon 11-23 Magnesium [Mass/Vol] 1.8 mg/dL Normal 1.7-2.3 [facility] Comment on above: Order Comment: Speci men Type: BLOOD SPECIMENOrdering Facility: [facility] Address: [address] [place] [address] Performed By: #### 2 4321-2, , ####[facility]ENTERIA [id number] [place] [address] [place] CBC W Auto Differential pane l (Bld)on 11-22-2022 Basophils (Bld) [#/Vol] 0.03 10*3/uL Normal <0.11 [facility] Comment on above: Order Comment: Speci men Type: BLOOD SPECIMENOrdering Facility: [facility] Address: [address] [place] [address] Performed By: #### 5 7021-8 ####[facility]ENTERIA [id number] [place] [address] [place] Basophils/100 WBC (Bld) 0.6 % Normal [facility] Comment on above: Order Comment: Speci men Type: BLOOD SPECIMENOrdering Facility: [facility] Address: [address] [place] [address] Performed By: #### 5 7021-8 ####[facility]ENTERIA [id number] [place] [address] [place] Differential cell count method Nom (Bld) Auto Normal [facility] Comment on above: Order Comment: Speci men Type: BLOOD SPECIMENOrdering Facility: [facility] [facility] Address: [address] [place] [address] Performed By: #### 5 7021-8 ####[facility] LABORATORYCLIA [id number] [facility] [place] [address] [place] Eosinophils (Bld) [#/Vol] 0.08 10*3/uL Normal <0.46 [facility] Comment on above: Order Comment: Speci men Type: BLOOD SPECIMENOrdering Facility: [facility] Address: [address] [place] [address] Performed By: #### 5 7021-8 ####[facility] LABORATORYIA [id number] [facility] [place] [address] [place] Eosinophils/100 WBC (Bld) 1.7 % Normal [facility] Comment on above: Order Comment: Speci men Type: BLOOD SPECIMENOrdering Facility: [facility] Address: [address] [place] [address] Performed By: #### 5 7021-8 ####[facility]ENTERIA [id number] [place] [address] [place] Erythrocyte distribution width (RBC) [Ratio] 13.4 % Normal 11.5-15.0 [facility] Comment on above: Order Comment: Speci men Type: BLOOD SPECIMENOrdering Facility: [facility] Address: [address] [place] [address] Performed By: #### 5 7021-8 ####[facility] CENTERIA [id number] [place] [address] [place] Hematocrit (Bld) [Volume fraction] 40.4 % Normal 36.0-46.0 [facility] Comment on above: Order Comment: Speci men Type: BLOOD SPECIMENOrdering Facility: [facility] Address: [address] [place] [address] Performed By: #### 5 7021-8 ####[facility] LABORATORYIA [id number] [place] [address] [place] Hemoglobin (Bld) [Mass/Vol] 13.8 g/dL Normal 11.5-15.5 [facility] Comment on above: Order Comment: Speci men Type: BLOOD SPECIMENOrdering Facility: [facility] Address: [address] [place] [address] Performed By: #### 5 7021-8 ####[facility] LABORATORYCLIA [id number] [place] [address] [place] Immature granulocytes (Bld) [#/Vol] 10*3/uL Normal <0.10 [facility] Comment on above: Order Comment: Speci men Type: BLOOD SPECIMENOrdering Facility: [facility] Address: [address] [place] [address] Performed By: #### 5 7021-8 ####[facility] LABORATORYCLIA [id number] [place] [id number] [place] Immature granulocytes/100 WBC (Bld) 0.2 % Normal [facility] Comment on above: Order Comment: Speci men Type: BLOOD SPECIMENOrdering Facility: [facility] Address: [address] [place] [address] Performed By: #### 5 7021-8 ####[facility]ENTERIA [id number] [place] [address] [place] Lymphocytes (Bld) [#/Vol] 2.01 10*3/uL Normal 1.00-4.00 [facility] Comment on above: Order Comment: Speci men Type: BLOOD SPECIMENOrdering Facility: [facility] Address: [address] [place] [address] Performed By: #### 5 7021-8 ####[facility] LABORATORYIA [id number] [place] [address] [place] Lymphocytes/100 WBC (Bld) 42.2 % Normal [facility] Comment on above: Order Comment: Speci men Type: BLOOD SPECIMENOrdering Facility: [facility] Address: [address] [place] [address] Performed By: #### 5 7021-8 ####[facility] LABORATORYIA [id number] [place] [address] [place] MCH (RBC) [Entitic mass] 31.2 pg Normal 26.0-34.0 [facility] Comment on above: Order Comment: Speci men Type: BLOOD SPECIMENOrdering Facility: [facility] Address: [address] [place] [address] Performed By: #### 5 7021-8 ####[facility]ENTERIA [id number] [place] [address] [place] MCHC (RBC) [Mass/Vol] 34.2 g/dL Normal 30.5-36.0 [facility] Comment on above: Order Comment: Speci men Type: BLOOD SPECIMENOrdering Facility: [facility] Address: [address] [place] [address] Performed By: #### 5 7021-8 ####[facility]ENTERIA [id number] [address] [place] MCV (RBC) [Entitic vol] 91.4 fL Normal 80.0-100.0 [facility] Comment on above: Order Comment: Speci men Type: BLOOD SPECIMENOrdering Facility: [facility] Address: [address] [place] [address] Performed By: #### 5 7021-8 ####[facility] [id number] [place] [address] [place] Monocytes (Bld) [#/Vol] 0.25 10*3/uL Normal <0.87 [facility] Comment on above: Order Comment: Speci men Type: BLOOD SPECIMENOrdering Facility: [facility] Address: [address] [place] [address] Performed By: #### 5 7021-8 ####[facility] LABORATORYIA [id number] [place], [place] [id number] [place] [address] [place] Monocytes/100 WBC (Bld) 5.3 % Normal [facility] Comment on above: Order Comment: Speci men Type: BLOOD SPECIMENOrdering Facility: [facility] Address: [address] [place] [address] Performed By: #### 5 7021-8 ####[facility] LABORATORYIA [id number] [place] [address] [place] Neutrophils (Bld) [#/Vol] 2.38 10*3/uL Normal 1.45-7.50 [facility] Comment on above: Order Comment: Speci men Type: BLOOD SPECIMENOrdering Facility: [facility] Address: [address] [place] [address] Performed By: #### 5 7021-8 ####[facility] LABORATORYIA [id number] [place] [address] [place] Neutrophils/100 WBC (Bld) 50.0 % Normal [facility] Comment on above: Order Comment: Speci men Type: BLOOD SPECIMENOrdering Facility: [facility] Address: [address] [place] [address] Performed By: #### 5 7021-8 ####[facility]ENTERIA [id number] [place] [address] [place] Nucleated RBC (Bld) [#/Vol] 10*3/uL Normal <0.01 [facility] Comment on above: Order Comment: Speci men Type: BLOOD SPECIMENOrdering Facility: [facility] Address: [address] [place] [address] Performed By: #### 5 7021-8 ####[facility]ENTERIA [id number] [place] [id number] [place] Nucleated RBC/100 WBC (Bld) [Ratio] 0.0 /100 WBC Normal [facility] Comment on above: Order Comment: Speci men Type: BLOOD SPECIMENOrdering Facility: [facility] Address: [address] [place] [address] Performed By: #### 5 7021-8 ####[facility]ENTERIA [id number] [place] [id number] [place] Platelet mean volume (Bld) [Entitic vol] 11.1 fL Normal 9.0-12.7 [facility] Comment on above: Order Comment: Speci men Type: BLOOD SPECIMENOrdering Facility: [facility] Address: [address] [place] [address] Performed By: #### 5 7021-8 ####[facility] LABORATORYCLIA [id number] [place] [address] [place] Platelets (Bld) [#/Vol] 282 10*3/uL Normal 150-400 [facility] Comment on above: Order Comment: Speci men Type: BLOOD SPECIMENOrdering Facility: [facility] Address: [address] [place] [address] Performed By: #### 5 7021-8 ####[facility]ENTERIA [id number] [place] [address] [place] RBC (Bld) [#/Vol] 4.42 10*6/uL Normal 3.90-5.20 [facility] Comment on above: Order Comment: Speci men Type: BLOOD SPECIMENOrdering Facility: [facility] Address: [address] [place] [address] Performed By: #### 5 7021-8 ####[facility]ENTERIA [id number] [place] [address] [place] WBC (Bld) [#/Vol] 4.76 10*3/uL Normal 3.70-11.00 [facility] Comment on above: Order Comment: Speci men Type: BLOOD SPECIMENOrdering Facility: [facility] Address: [address] [place] [address] Performed By: #### 5 7021-8 ####[facility]ENTERIA [id number] [place] [address] [place] [address] ABD/PEL W IVCONon 023 CT ABD/PEL W IVCON * * *Final Report* * * DATE OF EXAM: Nov 22 2022 4:50PM [facility] 0530 - CT ABD/PEL W IVCON / PROCEDURE REASON: Nausea/vomiting * * * * Physician Interpretation * * * * EXAMINATION: CT ABD/PEL W IVCON Exam Date/Time: 11/22/2022 4:50 PM CLINICAL HISTORY: Nausea/vomiting Ruq pain TECHNIQUE: CT of the abdomen and pelvis was performed using standard technique, scanning from just above the dome of the diaphragm to the symphysis pubis. Contrast: IV: 100 ml of Omnipaque 350 : ml of Dose-Length Product (DLP): 268 mGy*cm CT Dose Reduction Employed: Automated exposure control(AEC) and iterative recon COMPARISON: 11/17/2022 RESULT: Lower thorax: Unremarkable. Liver: Small stable hepatic hypodensities, likely cysts. Biliary: Normal caliber postcholecystectomy biliary tree. Spleen: Unremarkable. Pancreas: Unremarkable. Adrenal glands: Unremarkable. Kidneys: No solid, enhancing mass or hydronephrosis in either kidney. Vascular: Normal caliber abdominal aorta . GI tract: Surgical changes of gastric bypass. No dilation or wall thickening. No right lower quadrant or pericolonic inflammatory changes. Pelvis: Small amount of free fluid, likely physiologic.. Unremarkable urinary bladder . The uterus is surgically absent. Lymph nodes: No abdominal or pelvic lymphadenopathy, by size criteria. Mesentery/Peritoneum/R etroperitoneum: No ascites, pneumoperitoneum or suspicious mass. Soft Tissues/Bones: No acute finding.. Improving soft tissue emphysema in the periumbilical ventral body wall. IMPRESSION: No acute abnormality. Resolution of previously seen pneumoperitoneum. Resolution of mild stranding of the bypassed stomach. Minimal subcutaneous emphysema in the periumbilical ventral body wall, improving Special Investigator: PSCB Transcribe Date/Time: Nov 22 2022 5:14P Dictated by : KADEEM BERRIOS MD This examination was interpreted and the report reviewed and electronically signed by: KADEEM BERRIOS MD on Nov 22 2022 5:18PM EST [id number] Normal [facility] Comprehensive metabolic 2000 panelon 11-22-2022 Albumin [Mass/Vol] 4.4 g/dL Normal 3.9-4.9 [facility] Comment on above: Order Comment: Speci men Type: BLOOD SPECIMENOrdering Facility: [facility] Address: [address] [place] [address] Performed By: #### 2 4323-8, 3040-3, 41476-1 ####[facility] LABORATORYCLIA [id number] [place] [address] [place] ALP [Catalytic activity/Vol] 73 U/L Normal 34-123 [facility] Comment on above: Order Comment: Speci men Type: BLOOD SPECIMENOrdering Facility: [facility] Address: [address] [place] [address] Performed By: #### 2 4323-8, 3, ####[facility] LABORATORYCLIA [id number] [place] [address] [place] ALT [Catalytic activity/Vol] 21 U/L Normal 7-38 [facility] Comment on above: Order Comment: Speci men Type: BLOOD SPECIMENOrdering Facility: [facility] Address: [address] [place] [address] Performed By: #### 2 4323-8, 3, ####[facility] LABORATORYCLIA [id number] [place] [address] [place] Anion gap [Moles/Vol] 11 mmol/L Normal 9-18 [facility] Comment on above: Order Comment: Speci men Type: BLOOD SPECIMENOrdering Facility: [facility] Address: [address] [place] [address] Performed By: #### 2 4323-8, 3, ####[facility] LABORATORYCLIA [id number] [place] [address] [place] AST [Catalytic activity/Vol] 39 U/L High 13-35 [facility] Comment on above: Order Comment: Speci men Type: BLOOD SPECIMENOrdering Facility: [facility] Address: [address] [place] [address] Performed By: #### 2 4323-8, 3, ####[facility] LABORATORYCLIA [id number] [place] [address] [place] Bilirubin [Mass/Vol] 0.3 mg/dL Normal 0.2-1.3 [facility] Comment on above: Order Comment: Speci men Type: BLOOD SPECIMENOrdering Facility: [facility] Address: [address] [place] [address] Performed By: #### 2 4323-8, 3, ####[facility] LABORATORYIA [id number] [place] [address] [place] Calcium [Mass/Vol] 8.7 mg/dL Normal 8.5-10.2 [facility] Comment on above: Order Comment: Speci men Type: BLOOD SPECIMENOrdering Facility: [facility] Address: [address] [place] [address] Performed By: #### 2 4323-8, 3, ####[facility]ENTERIA [id number] [place] [address] [place] Chloride [Moles/Vol] 106 mmol/L High 97-105 [facility] Comment on above: Order Comment: Speci men Type: BLOOD SPECIMENOrdering Facility: [facility] Address: [address] [place] [address] Performed By: #### 2 4323-8, 3039-04, ####[facility]ENTERIA [id number] [place] [address] [place] CO2 [Moles/Vol] 22 mmol/L Normal 22-30 [facility] Comment on above: Order Comment: Speci men Type: BLOOD SPECIMENOrdering Facility: [facility] Address: [address] [place] [address] Performed By: #### 2 4323-8, 3, ####[facility] LABORATORYIA [id number] [place] [address] [place] Creatinine [Mass/Vol] 0.80 mg/dL Normal 0.58-0.96 [facility] Comment on above: Order Comment: Speci men Type: BLOOD SPECIMENOrdering Facility: [facility] Address: [address] [place] [address] Performed By: #### 2 4323-8, 0-3, ####[facility] LABORATORYIA [id number] [place] [address] [place] Creatinine and Glomerular filtration rate.predicted panel (S/P/Bld) 100 mL/min/1.73m??? Normal >=60 [facility] Comment on above: Order Comment: Geraldo marrero Type: BLOOD SPECIMENOrdering Facility: [facility] Address: [address] [place] [address] Result Comment: Rashmi mated Glomerular Filtration Rate (eGFR) is calculated using the 2020 CKD-EPI creatinine equation. This equation utilizes serum creatinine, sex, and age as parameters. The creatinine assay has traceable calibration to isotope dilution-mass spectrometry. Refer to KDIGO guidelines for clinical interpretation. In patients with unstable renal function, e.g. those with acute kidney injury, the eGFR may not accurately reflect actual GFR. Performed By: #### 2 4323-8, 3040-3, ####[facility] LABORATORYCLIA [id number] [place] [address] [place] Glucose [Mass/Vol] 88 mg/dL Normal 74-99 [facility] Comment on above: Order Comment: Geraldo marrero Type: BLOOD SPECIMENOrdering Facility: [facility] Address: [address] [place] [address] Result Comment: The [place] Diabetes Association (ADA) provides guidance for cutoff values for fasting glucose and random glucose. The ADA defines fasting as no caloric intake for at least 8 hours. Fasting plasma glucose results between 100 to 125 mg/dL indicate increased risk for diabetes (prediabetes). Fasting plasma glucose results greater than or equal to 126 mg/dL meet the criteria for diagnosis of diabetes. In the absence of unequivocal hyperglycemia, results should be confirmed by repeat testing. In a patient with classic symptoms of hyperglycemia or hyperglycemic crisis, random plasma glucose results greater than or equal to 200 mg/dL meet the criteria for diagnosis of diabetes. Reference: Standards of Medical Care in Diabetes 2016, [place] [employer] Association. Diabetes Care. 2016.39(Suppl 1). Performed By: #### 2 4323-8, 3040-3, 79980-6 ####[facility] LABORATORYCLIA [id number] [place] [address] [place] Potassium [Moles/Vol] 3.9 mmol/L Normal 3.7-5.1 [facility] Comment on above: Order Comment: Speci men Type: BLOOD SPECIMENOrdering Facility: [facility] Address: [address] [place] [id number] Performed By: #### 2 4323-8, 0-3, ####[facility] LABORATORYCLIA [id number] [place] [address] [place] Protein [Mass/Vol] 7.1 g/dL Normal 6.3-8.0 [facility] Comment on above: Order Comment: Speci men Type: BLOOD SPECIMENOrdering Facility: [facility] Address: [address] [place] [id number] Performed By: #### 2 4323-8, 3, ####[facility]ENTERIA [id number] [place] [address] [place] Sodium [Moles/Vol] 139 mmol/L Normal 136-144 [facility] Comment on above: Order Comment: Speci men Type: BLOOD SPECIMENOrdering Facility: [facility] Address: [address] [place] [id number] Performed By: #### 2 4323-8, 3, ####[facility]ENTERIA [id number] [place] [address] [place] Urea nitrogen [Mass/Vol] 8 mg/dL Normal 7-21 [facility] Comment on above: Order Comment: Speci men Type: BLOOD SPECIMENOrdering Facility: [facility] Address: [address] [place] [address] Performed By: #### 2 4323-8, 3, ####[facility] LABORATORYCLIA [id number] [place] [address] [place] ECG COMPLETEon 11-22-2022 ECG COMPLETE Ventricular Rate : 6 7 BPM Atrial Rate : 67 BPM P-R Interval : 149 ms QRS Duration : 88 ms Q-T Interval : 424 ms QTC Calculation(Bazett) : 448 ms Calculated P [place] : 79 degrees Calculated R [place] : 55 degrees Calculated T [place] : 30 degrees Sinus rhythm Ventricular premature complex Otherwise Normal ECG Confirmed by PATTISAPU, MD, JOSÉ MIGUEL ([id number]) on 11/23/2022 10:01:52 AM NAME : ABBEY GARCIA PID : [id number] : 1990 Gender : Female Race : ORD : [id number] Procedure Date : Nov 22 2022 21:38:35 Edit Date : Nov 23 2022 10:01:59 Diagnosis: Sinus rhythm Ventricular premature complex Otherwise Normal ECG Confirmed by MD HWANG ANISH ([id number]) on 11/23/2022 10:01:52 AM Test Reason : Check QT Location : 300 : EKG 404 Overread By : MD HWANG ANISH Edited By : MD HWANG ANISH Referred By : , Acquired by : [id number], [facility] ED NOTEon 11-22-2022 ED NOTE HNO ID: [id number] Author: Lady Garza RN Service: Emergency Medicine Author Type: Registered Nurse Type: ED Notes Filed: 11/22/2022 3:21 PM Note Text: Report to [facility] PRICE [facility] ED PROV NOTEon 11-22-2022 ED PROV NOTE HNO ID: [id number] Author: Jami Patel DO Service: Emergency Medicine Author Type: Physician Type: ED Provider Notes Filed: 11/22/2022 10:06 PM Note Text: ED Provider Note Patient Name: Abbey Garcia : 1990 SERVICE DATE: 11/22/22 History Patient presents with: Abdominal Pain: Bile duct repair on 11/11, pt woke up this AM with n/v and abd pain (RUQ, radiates to right flank). Symptoms unrelieved with meds at home. The patient is a 32-year-old female who presents to the ED for abdominal pain and vomiting. 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 She subsequently was admitted on November 16 to the hospital for intractable nausea and vomiting, as well as pain. She was treated with muscle relaxers, pain control and antiemetics and felt improved was able to tolerate p.o. She states that she started to not really feel well last night. Started having right upper quadrant abdominal pain. She states that it significantly worsened this morning after she took a drink of water. She states she has been vomiting throughout the day and has not been able to keep anything down including oral medications. She describes pain in her right upper quadrant that feels like a pressure sensation. It is also pleuritic in nature and radiates to her right arm. She denies actual chest pain or shortness of breath. She denies fevers but has had body aches and chills. She denies hematuria or dysuria. PAST MEDICAL HISTORY Diagnosis Date Anemia Takes Pro FE daily. Arthritis Asthma Class 1 obesity without serious comorbidity with body mass index (BMI) of 33.0 to 33.9 in adult 09/25/2019 Gastric ulcer 2013 GERD (gastroesophageal reflux disease) History of IBS Hypertension Hypothyroid RICHAR on CPAP wears mask every night PCOS (polycystic ovarian syndrome) PONV (postoperative nausea and vomiting) 01/29/2022 Ventral hernia without obstruction or gangrene PAST SURGICAL HISTORY Procedure Laterality Date APPENDECTOMY 08/2019 ARTHROSCOPY, SHOULDER, SURGI Right 08/2022 SLAP REPAIR and Subacromial Decompression CHOLECYSTECTOMY COLONOSCOPY GEN ANES EGD F TOTAL ABDOMINAL HYSTERECTOMY PAST SURGICAL HISTORY OF Bilateral arthroscopic knee surgery- was catcher in college PAST SURGICAL HISTORY OF 08/2020 gastric sleeve PICC LINE INSERT/CONSULT 12/24/2020 VAGINAL DELIVERY AFTER DELIVERY Three C-sections FAMILY HISTORY Problem Relation Age of Onset Diabetes Mother Hypertension Mother Obesity Mother Hypertension Father Hypertension Brother Obesity Brother Hypertension Brother Obesity Brother Social History Tobacco Use Smoking status: Never Smokeless tobacco: Never Substance and Sexual Activity Alcohol use: Not Currently Drug use: Never Comment: denies tx for drug/alcohol abuse in the past. Sexual activity: Yes Partners: Male Comment: Nexplanon impact ALLERGIES Allergen Reactions Adhesive Tape-Silic* Intolerance Sensitive to certain adhesive tapes. Redness and itchy. Codeine GI Upset Nsaids (Non-Steroid* Contraindication-Medic al Surgical S/p RYGB Review of Systems Constitutional: Positive for activity change and fatigue. Negative for fever. Eyes: Negative for redness and visual disturbance. Respiratory: Negative for shortness of breath and stridor. Cardiovascular: Negative for chest pain and palpitations. Gastrointestinal: Positive for abdominal pain, nausea and vomiting. Negative for diarrhea. Skin: Negative for pallor and rash. Neurological: Negative for speech difficulty, weakness, light-headedness and numbness. Psychiatric/Behavioral : Negative for agitation and suicidal ideas. Physical Exam Vitals [11/22/22 1211] BP Pulse Temp Temp src Resp SpO2 Weight Height 138/62 (!) 101 36.7 ?C (98.1 ?F) Oral 18 100 % -- -- Physical Exam Vitals and nursing note reviewed. Constitutional: General: She is not in acute distress. Appearance: She is well-developed. She is ill-appearing. She is not diaphoretic. HENT: Head: Normocephalic and atraumatic. No Lakhani's sign. Right Ear: External ear normal. No hemotympanum. Left Ear: External ear normal. No hemotympanum. Nose: Nose normal. Mouth/Throat: Pharynx: No oropharyngeal exudate. Comments: Dry mucous membranes Eyes: General: No scleral icterus. Right eye: No discharge. Left eye: No discharge. Conjunctiva/sclera: Conjunctivae normal. Pupils: Pupils are equal, round, and reactive to light. Neck: Vascular: No JVD. Trachea: No tracheal deviation. Cardiovascular: Rate and Rhythm: Normal rate and regular rhythm. Heart sounds: Normal heart sounds. No murmur heard. No friction rub. No gallop. Pulmonary: Effort: Pulmonary effort is normal. No respiratory distress. (more content not included)... Normal [facility] HISTORY PHYSICALon HISTORY PHYSICAL HNO ID: [id number] Author: Suellen Lamb APRN.CNP Service: Hospital Medicine Author Type: Nurse Practitioner Type: HANDP Filed: 11/22/2022 11:17 PM Note Text: DEPARTMENT OF HOSPITAL MEDICINE HISTORY AND PHYSICAL EXAM SERVICE DATE: 11/22/2022 Code Status: Not on file SERVICE TIME: 7:29 PM Primary Care Physician: Jaquan Morrow NIGHT AND WEEKEND COVERAGE: [employer] COVERAGE: Days: [phone], please contact via [facility] Nights: [phone] - 3rd floor: please page Hospitalist night cover [phone] - 4th floor: please page Hospitalist night cover [phone] - 5th floor: please page CC Hospitalist night cover [phone] Subjective CHIEF COMPLAINT: worsen abd pain AND N/D and not able to eat HPI: This is a 32 year old female w PMH of HTN, BMI > 30 s/p gastric sleeve, 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 She represented at on 11/17-07/07 with uncontrolled epigastric pain and nausea, labs and CT overall not significant for an acute process and was admitted for pain controlled, pt was Rx with IVF and seen by GenSurg and thought to be MSK related. Pt presents at [place] today for similar symptoms of intermittent upper abd pain (RUQ and epigastric) with mild nausea and decrease appetite for the last 3-4 days, and worsen with sharp pain after eating, describes as pressure sensation, associated with N/V and unable to eat (fullness fleeing) since last night. Also, noted of some lightheaded and palpitation and feeling dry dehydrated with vomiting all day and decreased void today. Denies fever, chills, or other physical abnormal complaints. ED work up: Lab CBC HANDh 13.8AND 40.4/WBC 4.76 CMP: bunANDcr 8AND0.80 Na 139 k 3.9 BS 88 Mg 1.9 LFTs wnl Lipase 45 UA: neg EKG: pending CXR: NO ACUTE RADIOGRAPHIC ABNORMALITY. CT abd/pel: No acute abnormality. Resolution of previously seen pneumoperitoneum. Resolution of mild stranding of the bypassed stomach. Minimal subcutaneous emphysema in the periumbilical ventral body wall, improving Pt received IVF NSS 1L bolus, and multiple pain control ( Inapsine, compazine, IV Fentanyl and Toradol) in ED PAST MEDICAL HISTORY Diagnosis Date Anemia Takes Pro FE daily. Arthritis Asthma Class 1 obesity without serious comorbidity with body mass index (BMI) of 33.0 to 33.9 in adult 09/25/2019 Gastric ulcer 2013 GERD (gastroesophageal reflux disease) History of IBS Hypertension Hypothyroid RICHAR on CPAP wears mask every night PCOS (polycystic ovarian syndrome) PONV (postoperative nausea and vomiting) 01/29/2022 Ventral hernia without obstruction or gangrene PAST SURGICAL HISTORY Procedure Laterality Date APPENDECTOMY 08/2019 ARTHROSCOPY, SHOULDER, SURGI Right 08/2022 SLAP REPAIR and Subacromial Decompression CHOLECYSTECTOMY COLONOSCOPY GEN ANES EGD F TOTAL ABDOMINAL HYSTERECTOMY PAST SURGICAL HISTORY OF Bilateral arthroscopic knee surgery- was catcher in [employer] PAST SURGICAL HISTORY OF 08/2020 gastric sleeve PICC LINE INSERT/CONSULT 12/24/2020 VAGINAL DELIVERY AFTER DELIVERY Three C-sections FAMILY HISTORY Problem Relation Age of Onset Diabetes Mother Hypertension Mother Obesity Mother Hypertension Father Hypertension Brother Obesity Brother Hypertension Brother Obesity Brother Social History Tobacco Use Smoking status: Never Smokeless tobacco: Never Substance Use Topics Alcohol use: Not Currently Drug use: Never Comment: denies tx for drug/alcohol abuse in the past. PRIOR TO ADMISSION MEDICATIONS: Current Facility-Administered Medications: [COMPLETED] CT ABD/PEL W IVCON AND iv contrast (radiology procedure) sucralfate 1 g tab(s) (CARAFATE) mirtazapine 15 mg (REMERON) busPIRone 10 mg tab(s) (BUSPAR) metoclopramide HCl 10 mg tab(s) (REGLAN) docusate sodium 100 mg cap(s) (COLACE) traMADol 50 mg tab(s) (ULTRAM) escitalopram oxalate 20 mg tab(s) (LEXAPRO) [START ON 11/23/2022] levothyroxine (SYNTHROID) tab(s) 100 mcg [START ON 11/23/2022] liothyronine 5 mcg tab(s) (CYTOMEL) dextrose 15 gram/32 mL 15 g (TRUEPLUS) OR glucagon 1 mg injection OR dextrose 10% iv bolus NaCl 0.9% iv flush bag dextrose 5% in NaCl 0.45% iv infusion ondansetron 4 mg tab(s) (ZOFRAN) OR ondansetron (PF) 4 mg injection (ZOFRAN) polyethylene glycol 3350 17 g packet acetaminophen 500-1,000 mg tab(s) (TYLENOL) hyoscyamine sublingual 0.25 mg tab(s) (LEVSIN SL) prochlorperazine 10 mg injection (COMPAZINE) [START ON 11/23/2022] pantoprazole 40 mg injection (PROTONIX) [START ON 11/24/2022] pantoprazole DR 40 mg tab(s) (PROTONIX) keTORolac 15 mg injection (Toradol) Current Outpatient Medications: ondansetron (ZOFRAN) 4 mg tablet traMADol (ULTRAM) 50 mg tablet methocarbamol 1,000 mg tablet cholecalciferol (VITAMIN D-3) 50 mcg (2,000 unit) tablet Zinc Gluconate 50 mg tablet mirtazapine (REMERON) (more content not included)... Normal [facility] Lipase SerPl-cCncon 11-23-19 23 Lipase [Catalytic activity/Vol] 45 U/L Normal 16-61 [facility] Comment on above: Order Comment: Speci men Type: BLOOD SPECIMENOrdering Facility: [facility] Address: [address] [place] [address] Performed By: #### 2 4323-8, 3040-3, 71164-9 ####[facility] LABORATORYCLIA [id number] [place] [address] [facility] Magnesium [facility] 11-22 Magnesium [Mass/Vol] 1.9 mg/dL Normal 1.7-2.3 [facility] Comment on above: Order Comment: Speci men Type: BLOOD SPECIMENOrdering Facility: [facility] Address: [address] [place] [address] Performed By: #### 2 4323-8, 3040-3, ####[facility] LABORATORYCLIA [id number] [place] [address] [place] NURSING PROGon 11-22-2022 NURSING PROG HNO ID: [id number] Author: Monica Maldonado RN Service: ? Author Type: Registered Nurse Type: Nursing Progress Note Filed: 11/22/2022 8:37 PM Note Text: Transfer Note: PATIENT NAME: Abbey Garcia [facility] in stable condition. Patient oriented to unit, room, and call light. Bed low and locked, call light within reach. Actions taken: No futher actions taken at this time. Normal [facility] Urinalysis complete panel (U )on 11-22-2022 Bilirubin Ql (U) Negative Normal Negative [facility] Comment on above: Order Comment: Speci men Type: URINE SPECIMENOrdering Facility: [facility] Address: [address] [place] [address] Performed By: #### 2 4356-8 ####[facility] [id number] [place] [address] [place] Clarity (Unsp spec) Clear Normal Clear [facility] Comment on above: Order Comment: Speci men Type: URINE SPECIMENOrdering Facility: [facility] Address: [address] [place] [address] Performed By: #### 2 4356-8 ####[facility] [id number] [place] [address] [place] Color (U) Light Yellow Normal yellow [facility] l Comment on above: Order Comment: Speci men Type: URINE SPECIMENOrdering Facility: [facility] Address: [address] [place] [address] Performed By: #### 2 4356-8 ####[facility] [id number] [place] [address] [place] Epithelial cells LM.HPF (Urine sed) [#/Area] Few Normal [facility] Comment on above: Order Comment: Speci men Type: URINE SPECIMENOrdering Facility: [facility] Address: [address] [place] [address] Performed By: #### 2 4356-8 ####[facility] [id number] [place] [address] [place] Glucose Test strip (U) [Mass/Vol] Negative Normal Trace, Negative [facility] Comment on above: Order Comment: Speci men Type: URINE SPECIMENOrdering Facility: [facility] Address: [address] [place] [address] Performed By: #### 2 4356-8 ####[facility] [id number] [place] [address] [place] Hemoglobin Ql (U) Negative Normal Negative, Trace [facility] Comment on above: Order Comment: Speci men Type: URINE SPECIMENOrdering Facility: [facility] Address: [address] [place] [address] Performed By: #### 2 4356-8 ####[facility] [id number] [place] [address] [place] Ketones Ql (U) Negative Normal Negative, Trace [facility] Comment on above: Order Comment: Speci men Type: URINE SPECIMENOrdering Facility: [facility] Address: [address] [place] [address] Performed By: #### 2 4356-8 ####[facility] [id number] [place] [address] [place] Leukocyte esterase Test strip Ql (U) Negative Normal Negative, 25 Patito/uL [facility] Comment on above: Order Comment: Speci men Type: URINE SPECIMENOrdering Facility: [facility] Address: [address] [place] [address] Performed By: #### 2 4356-8 ####[facility] [id number] [place] [address] [place] Nitrite Ql (U) Negative Normal Negative [facility] Comment on above: Order Comment: Speci men Type: URINE SPECIMENOrdering Facility: [facility] Address: [address] [place] [address] Performed By: #### 2 4356-8 ####[facility] [id number] [place] [address] [place] pH (U) 7.0 [pH] Normal 5.0-8.0 [facility] Comment on above: Order Comment: Speci men Type: URINE SPECIMENOrdering Facility: [facility] Address: [address] [place] [address] Performed By: #### 2 4356-8 ####[facility]ENTER[facility] [id number] [place] [address] [place] Protein (U) [Mass/Vol] Negative Normal Trace, Negative [facility] Comment on above: Order Comment: Speci men Type: URINE SPECIMENOrdering Facility: [facility] Address: [address] [place] [address] Performed By: #### 2 4356-8 ####[facility] [id number] [place] [id number] [place] RBC LM.HPF (Urine sed) [#/Area] 0-3 /HPF Normal 0-3 /HPF [facility] Comment on above: Order Comment: Speci men Type: URINE SPECIMENOrdering Facility: [facility] Address: [address] [place] [address] Performed By: #### 2 4356-8 ####[facility] [id number] [place] [id number] [place] Specific gravity (U) [Rel density] 1.020 Normal 1.005-1.030 [facility] Comment on above: Order Comment: Speci men Type: URINE SPECIMENOrdering Facility: [facility] Address: [address] [place] [address] Performed By: #### 2 4356-8 ####[facility] [id number] [place] [id number] [place] Urobilinogen Ql (U) Normal Normal Negative [facility] Comment on above: Order Comment: Speci men Type: URINE SPECIMENOrdering Facility: [facility] Address: [address] [place] [address] Performed By: #### 2 4356-8 ####[facility] [id number] [place] [id number] [place] WBC LM.HPF (Urine sed) [#/Area] 0-5 /HPF Normal 0-5 /HPF [facility] Comment on above: Order Comment: Speci men Type: URINE SPECIMENOrdering Facility: [facility] Address: [address] [place] [address] Performed By: #### 2 4356-8 ####[facility] [id number] [place] [address] [place] XR CHEST 2V FRONTAL/LATon XR CHEST 2V FRONTAL/LAT * * *Final Report* * * DATE OF EXAM: Nov 22 2022 4:10PM VHX [id number] - XR CHEST 2V FRONTAL/LAT / PROCEDURE REASON: Shortness of breath * * * * Physician Interpretation * * * * EXAMINATION: CHEST RADIOGRAPH (2 VIEW FRONTAL and LATERAL) CLINICAL HISTORY: Shortness of breath MQ: XC2_6 EXAM DATE/TIME: 11/22/2022 4:10 PM COMPARISON: Chest x-rays dated 07/22/2022, 12/31/2020, 07/2020 RESULT: Lines, tubes, and devices: None. Lungs and pleura: No consolidation. No lung mass. No pleural effusion. No pneumothorax. Cardiomediastinal silhouette: Normal cardiomediastinal silhouette. Bones and soft tissues: Unremarkable. IMPRESSION: NO ACUTE RADIOGRAPHIC ABNORMALITY. NO SIGNIFICANT INTERVAL CHANGE SINCE 07/22/2022. Special Investigator: JUANCARLOS Transcribe Date/Time: Nov 22 2022 4:12P Dictated by : SOUMYA PADILLA MD This examination was interpreted and the report reviewed and electronically signed by: SOUMYA PADILLA MD on Nov 22 2022 4:12PM EST [id number] Normal [facility] 11-20-2022 CNPN Normal [facility] Basic metabolic 2000 panelon 11-19-2022 Anion gap [Moles/Vol] 11 mmol/L Normal 9-18 [facility] Comment on above: Order Comment: Speci men Type: BLOOD SPECIMENOrdering Facility: [facility] Address: [address] [place] [address] Performed By: #### 2 4321-2, , 2776-02 ####[facility] LABORATORYCLIA [id number] [place] [address] [place] Calcium [Mass/Vol] 8.9 mg/dL Normal 8.5-10.2 [facility] Comment on above: Order Comment: Speci men Type: BLOOD SPECIMENOrdering Facility: [facility] Address: [address] [place] [address] Performed By: #### 2 4321-2, , 2776-02 ####[facility] LABORATORYCLIA [id number] [place] [address] [place] Chloride [Moles/Vol] 104 mmol/L Normal 97-105 [facility] Comment on above: Order Comment: Speci men Type: BLOOD SPECIMENOrdering Facility: [facility] Address: [address] [place] [address] Performed By: #### 2 4321-2, , 2776-02 ####[facility] LABORATORYCLIA [id number] [place] [id number] [place] CO2 [Moles/Vol] 25 mmol/L Normal 22-30 [facility] Comment on above: Order Comment: Speci men Type: BLOOD SPECIMENOrdering Facility: [facility] Address: [address] [place] [address] Performed By: #### 2 4321-2, , 2776-02 ####[facility] LABORATORYCLIA [id number] [place] [id number] [place] Creatinine [Mass/Vol] 0.82 mg/dL Normal 0.58-0.96 [facility] Comment on above: Order Comment: Speci men Type: BLOOD SPECIMENOrdering Facility: [facility] Address: [address] [place] [address] Performed By: #### 2 4321-2, , 2776-02 ####[facility] LABORATORYCLIA [id number] [place] [id number] [place] [facility] Creatinine and Glomerular filtration rate.predicted panel (S/P/Bld) 97 mL/min/1.73m??? Normal >=60 [facility] Comment on above: Order Comment: Speci men Type: BLOOD SPECIMENOrdering Facility: [facility] Address: [address] [place] [address] Result Comment: Rashmi mated Glomerular Filtration Rate (eGFR) is calculated using the 2020 CKD-EPI creatinine equation. This equation utilizes serum creatinine, sex, and age as parameters. The creatinine assay has traceable calibration to isotope dilution-mass spectrometry. Refer to KDIGO guidelines for clinical interpretation. In patients with unstable renal function, e.g. those with acute kidney injury, the eGFR may not accurately reflect actual GFR. Performed By: #### 2 4321-2, , 2776-02 ####[facility] LABORATORYCLIA [id number] [place] [id number] [place] Glucose [Mass/Vol] 80 mg/dL Normal 74-99 [facility] Comment on above: Order Comment: Speci men Type: BLOOD SPECIMENOrdering Facility: [facility] Address: [address] [place] [address] Result Comment: The [place] Diabetes Association (ADA) provides guidance for cutoff values for fasting glucose and random glucose. The ADA defines fasting as no caloric intake for at least 8 hours. Fasting plasma glucose results between 100 to 125 mg/dL indicate increased risk for diabetes (prediabetes). Fasting plasma glucose results greater than or equal to 126 mg/dL meet the criteria for diagnosis of diabetes. In the absence of unequivocal hyperglycemia, results should be confirmed by repeat testing. In a patient with classic symptoms of hyperglycemia or hyperglycemic crisis, random plasma glucose results greater than or equal to 200 mg/dL meet the criteria for diagnosis of diabetes. Reference: Standards of Medical Care in Diabetes 2016, [place] [employer] Association. Diabetes Care. 2016.39(Suppl 1). Performed By: #### 2 4321-2, , 2776-02 ####[facility] LABORATORYCLIA [id number] [place] [id number] [place] Potassium [Moles/Vol] 4.2 mmol/L Normal 3.7-5.1 [facility] Comment on above: Order Comment: Speci men Type: BLOOD SPECIMENOrdering Facility: [facility] Address: [address] [place] [address] Performed By: #### 2 4321-2, , 2776-02 ####[facility] LABORATORYCLIA [id number] [place] [id number] [place] Sodium [Moles/Vol] 140 mmol/L Normal 136-144 [facility] Comment on above: Order Comment: Speci men Type: BLOOD SPECIMENOrdering Facility: [facility] Address: [address] [place] [address] Performed By: #### 2 4321-2, 73314-0, 2776-02 ####[facility] LABORATORYCLIA [id number] [place] [id number] [place] Urea nitrogen [Mass/Vol] 6 mg/dL Low 7-21 [facility] Comment on above: Order Comment: Speci men Type: BLOOD SPECIMENOrdering Facility: [facility] Address: [address] [place] [address] Performed By: #### 2 4321-2, , 2776-02 ####[facility] LABORATORYCLIA [id number] [place] [id number] [place] CBC panel Auto (Bld)on 11-19 Erythrocyte distribution width (RBC) [Ratio] 13.2 % Normal 11.5-15.0 [facility] Comment on above: Order Comment: Speci men Type: BLOOD SPECIMENOrdering Facility: [facility] Address: [address] [place] [address] Performed By: #### 5 8410-2 ####[facility] LABORATORYCLIA [id number] [address] [place] Hematocrit (Bld) [Volume fraction] 36.3 % Normal 36.0-46.0 [facility] Comment on above: Order Comment: Speci men Type: BLOOD SPECIMENOrdering Facility: [facility] Address: [address] [place] [address] Performed By: #### 5 8410-2 ####[facility] LABORATORYCLIA [id number] [place] [id number] [place] Hemoglobin (Bld) [Mass/Vol] 12.4 g/dL Normal 11.5-15.5 [facility] Comment on above: Order Comment: Speci men Type: BLOOD SPECIMENOrdering Facility: [facility] Address: [address] [place] [address] Performed By: #### 5 8410-2 ####[facility] LABORATORYCLIA [id number] [place] [id number] [place] MCH (RBC) [Entitic mass] 30.4 pg Normal 26.0-34.0 [facility] Comment on above: Order Comment: Speci men Type: BLOOD SPECIMENOrdering Facility: [facility] Address: [address] [place] [address] Performed By: #### 5 8410-2 ####[facility] LABORATORYCLIA [id number] [place] [address] [place] MCHC (RBC) [Mass/Vol] 34.2 g/dL Normal 30.5-36.0 [facility] Comment on above: Order Comment: Speci men Type: BLOOD SPECIMENOrdering Facility: [facility] Address: [address] [place] [address] Performed By: #### 5 8410-2 ####[facility] LABORATORYCLIA [id number] [place] [address] [place] MCV (RBC) [Entitic vol] 89.0 fL Normal 80.0-100.0 [facility] Comment on above: Order Comment: Speci men Type: BLOOD SPECIMENOrdering Facility: [facility] Address: [address] [place] [address] Performed By: #### 5 8410-2 ####[facility]ORATORYCLIA [id number] [place] [address] [place] Nucleated RBC (Bld) [#/Vol] 10*3/uL Normal <0.01 [facility] Comment on above: Order Comment: Speci men Type: BLOOD SPECIMENOrdering Facility: [facility] Address: [address] [place] [address] Performed By: #### 5 8410-2 ####[facility] LABORATORYCLIA [id number] [address] [place] Platelet mean volume (Bld) [Entitic vol] 11.3 fL Normal 9.0-12.7 [facility] Comment on above: Order Comment: Speci men Type: BLOOD SPECIMENOrdering Facility: [facility] Address: [address] [place] [address] Performed By: #### 5 8410-2 ####[facility] LABORATORYCLIA [id number] [place] [address] [place] Platelets (Bld) [#/Vol] 239 10*3/uL Normal 150-400 [facility] Comment on above: Order Comment: Speci men Type: BLOOD SPECIMENOrdering Facility: [facility] Address: [address] [place] [address] Performed By: #### 5 8410-2 ####[facility]ORATORYCLIA [id number] [place] [id number] [place] RBC (Bld) [#/Vol] 4.08 10*6/uL Normal 3.90-5.20 [facility] Comment on above: Order Comment: Speci men Type: BLOOD SPECIMENOrdering Facility: [facility] Address: [place] [address] Performed By: #### 5 8410-2 ####[facility]ORATORYCLIA [id number] [place] [address] [place] WBC (Bld) [#/Vol] 2.99 10*3/uL Low 3.70-11.00 [facility] Comment on above: Order Comment: Speci men Type: BLOOD SPECIMENOrdering Facility: [facility] Address: [address] [place] [address] Performed By: #### 5 8410-2 ####[facility]ORATORYCLIA [id number] [place] [id number] [facility] [place] CNDSon 11-19-2022 CNDS HNO ID: [id number] Author: Pallavi Harris MD Service: General Surgery Author Type: Resident Type: Discharge Summary Filed: 11/19/2022 11:37 AM Note Text: Attestation signed by Deacon Kat MD at 11/26/2022 4:29 PM I saw and evaluated the patient. Discussed with the resident and agree with resident's findings and plan as documented in the resident's note. Deacon Kat MD GENERAL SURGERY DISCHARGE SUMMARY PATIENT NAME: Abbey Garcia ADMISSION DATE: 11/17/2022 DISCHARGE DATE: 11/19/2022 ATTENDING PHYSICIAN: Deacon Kat MD Code Status: Not on file Highest Readmission Risk Score: 21 The 30 day readmissions risk score is derived from an internally validated risk model which evaluates patient level characteristics, utilization history, medication orders and lab results up until the day of discharge. Patients with a score of 40 or above are considered highest risk for readmission. Specific patient level drivers will be listed at the bottom of the summary. 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 She represented on 11/17 with uncontrolled epigastric pain and nausea, labs and CT overall not significant for an acute process. She was admitted to [facility] for symptomatic control. Nausea improved with IV hydration and zofran. She tolerated diet advancement to full liquids. Pain control was improved with addition of scheduled robaxin and PRN tramadol for breakthrough pain. She was stable for discharge on 11/19 and discharged home on Full liquid diet. Follow up in office is scheduled for 11/30/[address] Kat. Active Hospital Problems Diagnosis Date Noted Pain, abdominal 11/17/2022 Resolved Hospital Problems No resolved problems to display. Transitions of Care Critical Issues: SPECIALIST FOLLOW-UP: General Surgery LABS AND PROCEDURES PENDING AT DISCHARGE: No pending results. CONSULTING TEAMS DURING HOSPITALIZATION: None Treatment Team: Attending Provider: Deacon Kat MD PATIENT CONDITION AT DISCHARGE: Stable DISCHARGE DISPOSITION: Home with Self Care INFORMATION PROVIDED TO PATIENT: see discharge instructions DIET: Resume pre-hospital diet Full Liquid Diet: Includes clear liquids plus cream soup, puddings, and milk ACTIVITY: Resume pre-hospital activity WOUND/SURGICAL SITE CARE: Leave open to air ALLERGIES Allergen Reactions Adhesive Tape-Silic* Intolerance Sensitive to certain adhesive tapes. Redness and itchy. Codeine GI Upset Nsaids (Non-Steroid* Contraindication-Medic al Surgical S/p RYGB DISCHARGE MEDICATION: Medication List START taking these medications methocarbamol 1,000 mg tablet Take 1 tablet by mouth three times a day as needed. ondansetron 4 mg tablet Commonly known as: ZOFRAN Take 1 tablet by mouth every 8 hours as needed for nausea/vomiting. CHANGE how you take these medications traMADol 50 mg tablet Commonly known as: ULTRAM Take 1 tablet by mouth every 8 hours as needed. What changed: reasons to take this CONTINUE taking these medications acetaminophen 500 mg tablet Commonly known as: TYLENOL Take 2 tablets by mouth every 6 hours as needed for pain or fever (specify). ADVAIR HFA INHALATION ALBUTEROL INHALATION busPIRone 10 mg tablet Commonly known as: BUSPAR Take 1 tablet by mouth twice daily. cholecalciferol 50 mcg (2,000 unit) tablet Commonly known as: Vitamin D-3 Take 1 tablet by mouth once daily. docusate sodium 100 mg capsule Commonly known as: COLACE Take 1 capsule by mouth three times daily. decrease the dose or stop for diarrhea escitalopram oxalate 20 mg tablet Commonly known as: LEXAPRO Take 1 tablet by mouth once daily. hydrOXYzine HCl 25 mg tablet Commonly known as: ATARAX TAKE 1 TABLET BY MOUTH TWICE A DAY NEEDED FOR ANXIETY /INSOMNIA levothyroxine 100 mcg tablet Commonly known as: SYNTHROID Take 1 tablet by mouth once daily. linaclotide 145 mcg capsule Commonly known as: LINZESS Take 1 capsule by mouth DAILY (6 AM). liothyronine 5 mcg tablet Commonly known as: CYTOMEL metoclopramide HCl 5 mg tablet Commonly known as: REGLAN Take 1 tablet by mouth before meals and at bedtime. mirtazapine 1 (more content not included)... Normal [facility] Magnesium [Mass/Vol] 1.9 mg/dL Normal 1.7-2.3 [facility] Comment on above: Order Comment: Speci men Type: BLOOD SPECIMENOrdering Facility: [facility] Address: [address] [place] [address] Performed By: #### 2 4321-2, , 2776-02 ####[facility] LABORATORYCLIA [id number] [place] [address] [facility] [place] NURSING PROGon 11-19-2022 NURSING PROG HNO ID: [id number] Author: Vicky Lincoln RN Service: Nursing Author Type: Registered Nurse Type: Nursing Progress Note Filed: 11/19/2022 11:29 AM Note Text: Other: 1047- page to orange team- pt wanting meds filled at [facility]. also pt's will be here at noon if being discharged today. making aware. 1129- second page to surgery Normal [facility] Phosphate [facility] 11-19 Phosphate [Mass/Vol] 4.1 mg/dL Normal 2.7-4.8 [facility] Comment on above: Order Comment: Speci men Type: BLOOD SPECIMENOrdering Facility: [facility] Address: [address] [place] [address] Performed By: #### 2 4321-2, , 2776-02 ####[facility] LABORATORYCLIA [id number] [place] [address] [place] Basic metabolic 2000 panelon 11-18-2022 Anion gap [Moles/Vol] 10 mmol/L Normal 9-18 [facility] Comment on above: Order Comment: Speci men Type: BLOOD SPECIMENOrdering Facility: [facility] Address: [address] [place] [phone] Performed By: #### 2 4321-2 ####[facility] LABORATORYCLIA [id number] [place] [address] [place] Calcium [Mass/Vol] 8.8 mg/dL Normal 8.5-10.2 [facility] Comment on above: Order Comment: Speci men Type: BLOOD SPECIMENOrdering Facility: [facility] Address: [address] [address] Performed By: #### 2 4321-2 ####[facility] LABORATORYCLIA [id number] [place] [address] [place] Chloride [Moles/Vol] 105 mmol/L Normal 97-105 [facility] Comment on above: Order Comment: Speci men Type: BLOOD SPECIMENOrdering Facility: [facility] Address: [address] [address] Performed By: #### 2 4321-2 ####[facility] LABORATORYCLIA [id number] [place] [address] [place] CO2 [Moles/Vol] 22 mmol/L Normal 22-30 [facility] Comment on above: Order Comment: Speci men Type: BLOOD SPECIMENOrdering Facility: [facility] Address: [address] [address] Performed By: #### 2 4321-2 ####[facility] LABORATORYCLIA [id number] [place] [address] [place] Creatinine [Mass/Vol] 0.61 mg/dL Normal 0.58-0.96 [facility] Comment on above: Order Comment: Speci men Type: BLOOD SPECIMENOrdering Facility: [facility] Address: [address] [address] Performed By: #### 2 4321-2 ####[facility] LABORATORYCLIA [id number] [place] [address] [place] Creatinine and Glomerular filtration rate.predicted panel (S/P/Bld) 121 mL/min/1.73m??? Normal >=60 [facility] Comment on above: Order Comment: Speci men Type: BLOOD SPECIMENOrdering Facility: [facility] Address: [address] [address] Result Comment: Rashmi mated Glomerular Filtration Rate (eGFR) is calculated using the 2020 CKD-EPI creatinine equation. This equation utilizes serum creatinine, sex, and age as parameters. The creatinine assay has traceable calibration to isotope dilution-mass spectrometry. Refer to KDIGO guidelines for clinical interpretation. In patients with unstable renal function, e.g. those with acute kidney injury, the eGFR may not accurately reflect actual GFR. Performed By: #### 2 4321-2 ####[facility] LABORATORYCLIA [id number] [place] [id number] [place] Glucose [Mass/Vol] 115 mg/dL High 74-99 [facility] Comment on above: Order Comment: Specmichael marrero Type: BLOOD SPECIMENOrdering Facility: [facility] Address: [address] [address] Result Comment: The [place] [employer] (ADA) provides guidance for cutoff values for fasting glucose and random glucose. The ADA defines fasting as no caloric intake for at least 8 hours. Fasting plasma glucose results between 100 to 125 mg/dL indicate increased risk for diabetes (prediabetes). Fasting plasma glucose results greater than or equal to 126 mg/dL meet the criteria for diagnosis of diabetes. In the absence of unequivocal hyperglycemia, results should be confirmed by repeat testing. In a patient with classic symptoms of hyperglycemia or hyperglycemic crisis, random plasma glucose results greater than or equal to 200 mg/dL meet the criteria for diagnosis of diabetes. Reference: Standards of Medical Care in Diabetes 2016, [place] [employer]. Diabetes Care. 2016.39(Suppl 1). Performed By: #### 2 4321-2 ####[facility] LABORATORYCLIA [id number] [place] [id number] [place] Potassium [Moles/Vol] 4.2 mmol/L Normal 3.7-5.1 [facility] Comment on above: Order Comment: Geradlo marrero Type: BLOOD SPECIMENOrdering Facility: [facility] Address: [address] [phone] Performed By: #### 2 4321-2 ####[facility] LABORATORYCLIA [id number] [place] [id number] [place] Sodium [Moles/Vol] 137 mmol/L Normal 136-144 [facility] Comment on above: Order Comment: Speci men Type: BLOOD SPECIMENOrdering Facility: [facility] Address: [address] [address] Performed By: #### 2 4321-2 ####[facility] LABORATORYCLIA [id number] [place] [address] [place] Urea nitrogen [Mass/Vol] 6 mg/dL Low 7-21 [facility] Comment on above: Order Comment: Speci men Type: BLOOD SPECIMENOrdering Facility: [facility] Address: [address] [address] Performed By: #### 2 4321-2 ####[facility] LABORATORYCLIA [id number] [place] [address] [place] CBC panel Auto (Bld)on 11-18 Erythrocyte distribution width (RBC) [Ratio] 13.0 % Normal 11.5-15.0 [facility] Comment on above: Order Comment: Speci men Type: BLOOD SPECIMENOrdering Facility: [facility] Address: [address] [address] Performed By: #### 5 8410-2 ####[facility] LABORATORYCLIA [id number] [address] [place] Hematocrit (Bld) [Volume fraction] 35.7 % Low 36.0-46.0 [facility] Comment on above: Order Comment: Speci men Type: BLOOD SPECIMENOrdering Facility: [facility] Address: [address] [address] Performed By: #### 5 8410-2 ####[facility] LABORATORYCLIA [id number] [place] [address] [place] Hemoglobin (Bld) [Mass/Vol] 12.3 g/dL Normal 11.5-15.5 [facility] Comment on above: Order Comment: Speci men Type: BLOOD SPECIMENOrdering Facility: [facility] Address: [address] [address] Performed By: #### 5 8410-2 ####[facility] LABORATORYCLIA [id number] [address] [place] [facility] MCH (RBC) [Entitic mass] 31.1 pg Normal 26.0-34.0 [facility] Comment on above: Order Comment: Speci men Type: BLOOD SPECIMENOrdering Facility: [facility] Address: [address] [place] [address] Performed By: #### 5 8410-2 ####[facility] LABORATORYCLIA [id number] [place] [address] [place] MCHC (RBC) [Mass/Vol] 34.5 g/dL Normal 30.5-36.0 [facility] Comment on above: Order Comment: Speci men Type: BLOOD SPECIMENOrdering Facility: [facility] Address: [address] [place] [address] Performed By: #### 5 8410-2 ####[facility] LABORATORYCLIA [id number] [address] [place] MCV (RBC) [Entitic vol] 90.2 fL Normal 80.0-100.0 [facility] Comment on above: Order Comment: Speci men Type: BLOOD SPECIMENOrdering Facility: [facility] Address: [address] [place] [address] Performed By: #### 5 8410-2 ####[facility] LABORATORYCLIA [id number] [address] [place] Nucleated RBC (Bld) [#/Vol] 10*3/uL Normal <0.01 [facility] Comment on above: Order Comment: Speci men Type: BLOOD SPECIMENOrdering Facility: [facility] Address: [address] [place] [address] Performed By: #### 5 8410-2 ####[facility] LABORATORYCLIA [id number] [address] Platelet mean volume (Bld) [Entitic vol] 11.2 fL Normal 9.0-12.7 [facility] Comment on above: Order Comment: Speci men Type: BLOOD SPECIMENOrdering Facility: [facility] Address: [address] [place] [address] Performed By: #### 5 8410-2 ####[facility] LABORATORYCLIA [id number] [place] [id number] [facility] Platelets (Bld) [#/Vol] 214 10*3/uL Normal 150-400 [facility] Comment on above: Order Comment: Speci men Type: BLOOD SPECIMENOrdering Facility: [facility] Address: [address] [place] [address] Performed By: #### 5 8410-2 ####[facility] LABORATORYCLIA [id number] [place] [address] [facility] [place] RBC (Bld) [#/Vol] 3.96 10*6/uL Normal 3.90-5.20 [facility] Comment on above: Order Comment: Speci men Type: BLOOD SPECIMENOrdering Facility: [facility] Address: [address] [place] [address] Performed By: #### 5 8410-2 ####[facility] LABORATORYCLIA [id number] [place] [id number] [facility] WBC (Bld) [#/Vol] 3.48 10*3/uL Low 3.70-11.00 [facility] Comment on above: Order Comment: Speci men Type: BLOOD SPECIMENOrdering Facility: [facility] Address: [address] [place] [address] Performed By: #### 5 8410-2 ####[facility] LABORATORYCLIA [id number] [place] [id number] [facility] NURSING PROGon 11-18-2022 NURSING PROG HNO ID: [id number] Author: Rajni Walsh RN Service: ? Author Type: Registered Nurse Type: Nursing Progress Note Filed: 11/18/2022 10:12 AM Note Text: Other: IV infusing as ordered.Remains NPO.Took oral medications without any difficulties.C/o nausea-zofran was given as ordered.Also,having some pain-ultram given Normal [facility] Urinalysis complete panel (U )on 11-18-2022 Bacteria LM.HPF (Urine sed) [#/Area] Rare Abnormal None Seen [facility] Comment on above: Order Comment: Speci men Type: URINE SPECIMENOrdering Facility: [facility] Address: [address] [place] [address] Performed By: #### 2 4356-8 ####[facility] LABORATORYCLIA [id number] [place] [address] [place] Bilirubin Ql (U) Negative Normal Negative [facility] Comment on above: Order Comment: Speci men Type: URINE SPECIMENOrdering Facility: [facility] Address: [address] [place] [address] Performed By: #### 2 4355-8 ####[facility] LABORATORYCLIA [id number] [place] [address] [place] Clarity (Unsp spec) Clear Normal Clear [facility] Comment on above: Order Comment: Speci men Type: URINE SPECIMENOrdering Facility: [facility] Address: [address] [place] [address] Performed By: #### 2 6-8 ####[facility] LABORATORYCLIA [id number] [place] [address] [place] Color (U) Colorless Normal Yellow [facility] Comment on above: Order Comment: Speci men Type: URINE SPECIMENOrdering Facility: [facility] Address: [address] [place] [address] Performed By: #### 2 6-8 ####[facility] LABORATORYCLIA [id number] [address] [place] Epithelial cells LM.HPF (Urine sed) [#/Area] Few Normal [facility] Comment on above: Order Comment: Speci men Type: URINE SPECIMENOrdering Facility: [facility] Address: [address] [place] [address] Performed By: #### 2 4356-8 ####[facility] LABORATORYCLIA [id number] [address] [place] Glucose Test strip (U) [Mass/Vol] Negative Normal Trace, Negative [facility] Comment on above: Order Comment: Speci men Type: URINE SPECIMENOrdering Facility: [facility] Address: [address] [address] Performed By: #### 2 4356-8 ####[facility] LABORATORYCLIA [id number] [place] [address] [place] Hemoglobin Ql (U) Negative Normal Negative, Trace [facility] Comment on above: Order Comment: Speci men Type: URINE SPECIMENOrdering Facility: [facility] Address: [address] [address] Performed By: #### 2 4356-8 ####[facility] LABORATORYCLIA [id number] [place] [address] [place] Ketones Ql (U) Negative Normal Negative, Trace [facility] Comment on above: Order Comment: Speci men Type: URINE SPECIMENOrdering Facility: [facility] Address: [address] [place] [address] Performed By: #### 2 4356-8 ####[facility] LABORATORYCLIA [id number] [place] [address] [place] Leukocyte esterase Test strip Ql (U) Negative Normal Negative, 25 Patito/uL [facility] Comment on above: Order Comment: Speci men Type: URINE SPECIMENOrdering Facility: [facility] Address: [address] [place] [address] Performed By: #### 2 4356-8 ####[facility] LABORATORYCLIA [id number] [place] [address] [place] Nitrite Ql (U) Negative Normal Negative [facility] Comment on above: Order Comment: Speci men Type: URINE SPECIMENOrdering Facility: [facility] Address: [address] [place] [address] Performed By: #### 2 4356-8 ####[facility] LABORATORYCLIA [id number] [address] [place] pH (U) 7.5 [pH] Normal 5.0-8.0 [facility] Comment on above: Order Comment: Speci men Type: URINE SPECIMENOrdering Facility: [facility] Address: [address] [address] Performed By: #### 2 4356-8 ####[facility] LABORATORYCLIA [id number] [place] [address] [place] Protein (U) [Mass/Vol] Negative Normal Trace, Negative [facility] Comment on above: Order Comment: Speci men Type: URINE SPECIMENOrdering Facility: [facility] Address: [address] [place] [address] Performed By: #### 2 4356-8 ####[facility] LABORATORYCLIA [id number] [place] [address] [place] RBC LM.HPF (Urine sed) [#/Area] 0-3 /HPF Normal 0-3 /HPF [facility] Comment on above: Order Comment: Speci men Type: URINE SPECIMENOrdering Facility: [facility] Address: [address] [place] [address] Performed By: #### 2 4356-8 ####[facility] LABORATORYCLIA [id number] [place] [address] [place] Specific gravity (U) [Rel density] 1.007 Normal 1.005-1.030 [facility] Comment on above: Order Comment: Speci men Type: URINE SPECIMENOrdering Facility: [facility] Address: [address] [place] [address] Performed By: #### 2 4356-8 ####[facility] LABORATORYCLIA [id number] [place] [address] [place] Urobilinogen Ql (U) Negative Normal Negative [facility] Comment on above: Order Comment: Speci men Type: URINE SPECIMENOrdering Facility: [facility] Address: [address] [place] [address] Performed By: #### 2 4356-8 ####[facility] LABORATORYCLIA [id number] [place] [address] [place] WBC LM.HPF (Urine sed) [#/Area] 0-5 /HPF Normal 0-5 /HPF [facility] Comment on above: Order Comment: Speci men Type: URINE SPECIMENOrdering Facility: [facility] Address: [address] [place] [address] Performed By: #### 2 4356-8 ####[facility] LABORATORYCLIA [id number] [place] [address] [place] Bilirubin Ql (U) Negative Normal Negative [facility] Comment on above: Order Comment: Speci men Type: URINE SPECIMENOrdering Facility: [facility] Address: [address] [address] Performed By: #### 2 4356-8 ####[facility] LABORATORYCLIA [id number] [place] [address] [place] Clarity (Unsp spec) Clear Normal Clear [facility] Comment on above: Order Comment: Speci men Type: URINE SPECIMENOrdering Facility: [facility] Address: [address] [place] [address] Performed By: #### 2 4356-8 ####[facility] LABORATORYCLIA [id number] [place] [address] [place] Color (U) Colorless Normal Yellow [facility] Comment on above: Order Comment: Speci men Type: URINE SPECIMENOrdering Facility: [facility] Address: [address] [place] [address] Performed By: #### 2 4356-8 ####[facility] LABORATORYCLIA [id number] [place] [address] [place] Epithelial cells LM.HPF (Urine sed) [#/Area] Few Normal [facility] Comment on above: Order Comment: Speci men Type: URINE SPECIMENOrdering Facility: [facility] Address: [address] [place] [address] Performed By: #### 2 4356-8 ####[facility] LABORATORYCLIA [id number] [address] [place] Glucose Test strip (U) [Mass/Vol] Negative Normal Trace, Negative [facility] Comment on above: Order Comment: Speci men Type: URINE SPECIMENOrdering Facility: [facility] Address: [address] [place], [place] [id number] Performed By: #### 2 4356-8 ####[facility] LABORATORYCLIA [id number] [address] [place] Hemoglobin Ql (U) Negative Normal Negative, Trace [facility] Comment on above: Order Comment: Speci men Type: URINE SPECIMENOrdering Facility: [facility] Address: [address] [address] Performed By: #### 2 4356-8 ####[facility] LABORATORYCLIA [id number] [place] [address] [place] Ketones Ql (U) Negative Normal Negative, Trace [facility] Comment on above: Order Comment: Speci men Type: URINE SPECIMENOrdering Facility: [facility] Address: [address] [address] Performed By: #### 2 4356-8 ####[facility] LABORATORYCLIA [id number] [address] [place] Leukocyte esterase Test strip Ql (U) Negative Normal Negative, 25 Patito/uL [facility] Comment on above: Order Comment: Speci men Type: URINE SPECIMENOrdering Facility: [facility] Address: [address] [address] Performed By: #### 2 4356-8 ####[facility] LABORATORYCLIA [id number] [address] [place] Nitrite Ql (U) Negative Normal Negative [facility] Comment on above: Order Comment: Speci men Type: URINE SPECIMENOrdering Facility: [facility] Address: [address] [address] Performed By: #### 2 4356-8 ####[facility] LABORATORYCLIA [id number] [address] [place] pH (U) 7.5 [pH] Normal 5.0-8.0 [facility] Comment on above: Order Comment: Speci men Type: URINE SPECIMENOrdering Facility: [facility] Address: [address] [address] Performed By: #### 2 4356-8 ####[facility] LABORATORYCLIA [id number] [place] [address] [place] Protein (U) [Mass/Vol] Negative Normal Trace, Negative [facility] Comment on above: Order Comment: Speci men Type: URINE SPECIMENOrdering Facility: [facility] Address: [address] [place] [address] Performed By: #### 2 4356-8 ####[facility] LABORATORYCLIA [id number] [place] [address] [place] RBC LM.HPF (Urine sed) [#/Area] 0-3 /HPF Normal 0-3 /HPF [facility] Comment on above: Order Comment: Speci men Type: URINE SPECIMENOrdering Facility: [facility] Address: [address] [place] [address] Performed By: #### 2 4356-8 ####[facility] LABORATORYCLIA [id number] [address] [place] Specific gravity (U) [Rel density] 1.006 Normal 1.005-1.030 [facility] Comment on above: Order Comment: Speci men Type: URINE SPECIMENOrdering Facility: [facility] Address: [address] [place] [address] Performed By: #### 2 4356-8 ####[facility] LABORATORYCLIA [id number] [address] [place] Urobilinogen Ql (U) Negative Normal Negative [facility] Comment on above: Order Comment: Speci men Type: URINE SPECIMENOrdering Facility: [facility] Address: [address] [place] [address] Performed By: #### 2 4356-8 ####[facility] LABORATORYCLIA [id number] [place] [address] [place] WBC LM.HPF (Urine sed) [#/Area] 0-5 /HPF Normal 0-5 /HPF [facility] Comment on above: Order Comment: Speci men Type: URINE SPECIMENOrdering Facility: [facility] Address: [address] [place], [place] [address] Performed By: #### 2 4356-8 ####OSVALDO LABORATORYCLIA [id number] [place] [id number] [place] ALLIED HEALTHon 11-17-2022 ALLIED HEALTH HNO ID: [id number] Author: Keesha Nice RT(R) Service: ? Author Type: Technologist Type: Allied Health Filed: 11/17/2022 4:44 PM Note Text: Radiology Service Progress Note PATIENT NAME: Abbey Garcia DATE OF SERVICE: November 17, 2022 TIME: 4:44 PM PATIENT IDENTITY VERIFICATION COMPLETED USING TWO (2) IDENTIFIERS: Name and Date of confirmed by patient verbally and Name and Date of confirmed by identification band. FALL SCREENING: Has the patient had 2 falls in the last year or 1 fall with injury or currently using an Ambulatory Assistive Device (Walker, Cane, Wheelchair, Crutches, etc.)? Emergency Room Patient: Screened in ED PATIENT GENDER DATA: Female. status: : No status: NO. PATIENT RELEVANT IMPLANT DATA REVIEWED: Not Applicable RADIOLOGY DEPARTMENT: CT; Exam(s) Completed: Abdomen/Pelvis PERIPHERAL IV DATA: Inpatient: see LDA documentation SIGNED BY: RT Tena(R) November 17, 2022 4:44 PM Normal [facility] CBC W Auto Differential pane l (Bld)on 11-17-2022 Basophils (Bld) [#/Vol] 0.03 10*3/uL Normal <0.11 [facility] Comment on above: Order Comment: Speci men Type: BLOOD SPECIMENOrdering Facility: [facility] Address: [address] [address] Performed By: #### 5 7021-8 ####OSVALDO LABORATORYCLIA [id number] [address] [place] Basophils/100 WBC (Bld) 0.7 % Normal [facility] Comment on above: Order Comment: Speci men Type: BLOOD SPECIMENOrdering Facility: [facility] Address: [address] [address] Performed By: #### 5 7021-8 ####OSVALDO LABORATORYCLIA [id number] [address] [place] Differential cell count method Nom (Bld) Auto Normal [facility] Comment on above: Order Comment: Speci men Type: BLOOD SPECIMENOrdering Facility: [facility] Address: [address] [address] Performed By: #### 5 7021-8 ####OSVALDO LABORATORYCLIA [id number] [place] [address] [place] Eosinophils (Bld) [#/Vol] 0.07 10*3/uL Normal <0.46 [facility] Comment on above: Order Comment: Speci men Type: BLOOD SPECIMENOrdering Facility: [facility] Address: [address] [place] [address] Performed By: #### 5 7021-8 ####[facility] LABORATORYCLIA [id number] [address] [place] Eosinophils/100 WBC (Bld) 1.7 % Normal [facility] Comment on above: Order Comment: Speci men Type: BLOOD SPECIMENOrdering Facility: [facility] Address: [address] [place] [address] Performed By: #### 5 7021-8 ####OSVALDO LABORATORYCLIA [id number] [address] [place] Erythrocyte distribution width (RBC) [Ratio] 13.2 % Normal 11.5-15.0 [facility] Comment on above: Order Comment: Speci men Type: BLOOD SPECIMENOrdering Facility: [facility] Address: [address] [place] [address] Performed By: #### 5 7021-8 ####[facility] LABORATORYCLIA [id number] [address] [place] Hematocrit (Bld) [Volume fraction] 37.2 % Normal 36.0-46.0 [facility] Comment on above: Order Comment: Speci men Type: BLOOD SPECIMENOrdering Facility: [facility] Address: [address] [place] [address] Performed By: #### 5 7021-8 ####[facility] LABORATORYCLIA [id number] [place] [address] [place] Hemoglobin (Bld) [Mass/Vol] 12.9 g/dL Normal 11.5-15.5 [facility] Comment on above: Order Comment: Speci men Type: BLOOD SPECIMENOrdering Facility: [facility] Address: [address] [address] Performed By: #### 5 7021-8 ####[facility] LABORATORYCLIA [id number] [place] [address] [place] Immature granulocytes (Bld) [#/Vol] 10*3/uL Normal <0.10 [facility] Comment on above: Order Comment: Speci men Type: BLOOD SPECIMENOrdering Facility: [facility] Address: [address] [place] [address] Performed By: #### 5 7021-8 ####OSVALDO LABORATORYCLIA [id number] [place] [address] [place] Immature granulocytes/100 WBC (Bld) 0.2 % Normal [facility] Comment on above: Order Comment: Speci men Type: BLOOD SPECIMENOrdering Facility: [facility] Address: [address] [place] [address] Performed By: #### 5 7021-8 ####[facility] LABORATORYCLIA [id number] [place] [address] [place] Lymphocytes (Bld) [#/Vol] 1.81 10*3/uL Normal 1.00-4.00 [facility] Comment on above: Order Comment: Speci men Type: BLOOD SPECIMENOrdering Facility: [facility] Address: [address] [address] Performed By: #### 5 7021-8 ####[facility] LABORATORYCLIA [id number] [place] [address] [place] Lymphocytes/100 WBC (Bld) 44.6 % Normal [facility] Comment on above: Order Comment: Speci men Type: BLOOD SPECIMENOrdering Facility: [facility] Address: [address] [address] Performed By: #### 5 7021-8 ####[facility] LABORATORYCLIA [id number] [address] [facility] MCH (RBC) [Entitic mass] 31.1 pg Normal 26.0-34.0 [facility] Comment on above: Order Comment: Speci men Type: BLOOD SPECIMENOrdering Facility: [facility] Address: [address] [place] [address] Performed By: #### 5 7021-8 ####[facility] LABORATORYCLIA [id number] [address] [place] MCHC (RBC) [Mass/Vol] 34.7 g/dL Normal 30.5-36.0 [facility] Comment on above: Order Comment: Speci men Type: BLOOD SPECIMENOrdering Facility: [facility] Address: [address] [place] [address] Performed By: #### 5 7021-8 ####[facility] LABORATORYCLIA [id number] [address] STATES OF [facility] MCV (RBC) [Entitic vol] 89.6 fL Normal 80.0-100.0 [facility] Comment on above: Order Comment: Speci men Type: BLOOD SPECIMENOrdering Facility: [facility] Address: [address] [place] [address] Performed By: #### 5 7021-8 ####[facility] LABORATORYCLIA [id number] [address] [place] Monocytes (Bld) [#/Vol] 0.21 10*3/uL Normal <0.87 [facility] Comment on above: Order Comment: Speci men Type: BLOOD SPECIMENOrdering Facility: [facility] Address: [address] [place] [address] Performed By: #### 5 7021-8 ####[facility] LABORATORYCLIA [id number] [address] Monocytes/100 WBC (Bld) 5.2 % Normal [facility] Comment on above: Order Comment: Speci men Type: BLOOD SPECIMENOrdering Facility: [facility] Address: [address] [address] Performed By: #### 5 7021-8 ####OSVALDO LABORATORYCLIA [id number] [place] [id number] [place] Neutrophils (Bld) [#/Vol] 1.93 10*3/uL Normal 1.45-7.50 [facility] Comment on above: Order Comment: Speci men Type: BLOOD SPECIMENOrdering Facility: [facility] Address: [address] [address] Performed By: #### 5 7021-8 ####OSVALDO LABORATORYCLIA [id number] [place] [address] [place] Neutrophils/100 WBC (Bld) 47.6 % Normal [facility] Comment on above: Order Comment: Speci men Type: BLOOD SPECIMENOrdering Facility: [facility] Address: [address] [address] Performed By: #### 5 7021-8 ####OSVALDO LABORATORYCLIA [id number] [place] [address] [place] Nucleated RBC (Bld) [#/Vol] 10*3/uL Normal <0.01 [facility] Comment on above: Order Comment: Speci men Type: BLOOD SPECIMENOrdering Facility: [facility] Address: [address] [address] Performed By: #### 5 7021-8 ####OSVALDO LABORATORYCLIA [id number] [place] [id number] [place] Nucleated RBC/100 WBC (Bld) [Ratio] 0.0 /100 WBC Normal [facility] Comment on above: Order Comment: Speci men Type: BLOOD SPECIMENOrdering Facility: [facility] Address: [address] [place] [address] Performed By: #### 5 7021-8 ####OSVALDO LABORATORYCLIA [id number] [place] [address] [place] Platelet mean volume (Bld) [Entitic vol] 11.9 fL Normal 9.0-12.7 [facility] Comment on above: Order Comment: Speci men Type: BLOOD SPECIMENOrdering Facility: [facility] Address: [address] [place] [address] Performed By: #### 5 7021-8 ####[facility] LABORATORYCLIA [id number] [place] [address] [place] Platelets (Bld) [#/Vol] 85 10*3/uL Low 150-400 [facility] Comment on above: Order Comment: Speci men Type: BLOOD SPECIMENOrdering Facility: [facility] Address: [address] [place] [address] Result Comment: Resu lts may be inaccurate due to the presence of microclots. Performed By: #### 5 7021-8 ####[facility] LABORATORYCLIA [id number] [place] [address] [place] RBC (Bld) [#/Vol] 4.15 10*6/uL Normal 3.90-5.20 [facility] Comment on above: Order Comment: Speci men Type: BLOOD SPECIMENOrdering Facility: [facility] Address: [address] [place] [address] Performed By: #### 5 7021-8 ####[facility] LABORATORYCLIA [id number] [place] [address] [place] WBC (Bld) [#/Vol] 4.06 10*3/uL Normal 3.70-11.00 [facility] Comment on above: Order Comment: Speci men Type: BLOOD SPECIMENOrdering Facility: [facility] Address: [address] [place] [address] Result Comment: Resu lts may be inaccurate due to the presence of microclots. Performed By: #### 5 7021-8 ####[facility] LABORATORYCLIA [id number] [place] [id number] [facility] CONSULTon 11-17-2022 CONSULT HNO ID: [id number] Author: Adenike Rendon MD Service: General Surgery Author Type: Resident Type: Consults Filed: 11/17/2022 7:53 PM Note Text: Attestation signed by Jonelle Santizo MD at 11/18/2022 6:13 AM Attending Note I evaluated the patient and personally participated in the paula components. I agree with the resident's findings and plan as documented and have discussed the case and management of the patient's care with the resident. Signature: Jonelle Santizo MD Date: 11/18/2022 Time: 6:13 AM GENERAL SURGERY NOTE Abbey Garcia [id number] Subjective CHIEF COMPLAINT: Abdominal pain HISTORY OF PRESENT ILLNESS: Ms. Garcia is a 32 year old female with history of HTN, HTN, BMI > 30 s/p gastric sleeve, 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 Presenting to the ED today with one day history of epigastric pain with dry heaves. She has been on a full diet since discharge and had been tolerating till yesterday. Reports diarrhea, has subjective chills, no fevers. Lab work today is unremarkable, CT scan revealed non-specific perigastric fat stranding that is likely expected post-op finding. General surgery was consulted for further evaluation PAST MEDICAL HISTORY Diagnosis Date Anemia Takes Pro FE daily. Arthritis Asthma Class 1 obesity without serious comorbidity with body mass index (BMI) of 33.0 to 33.9 in adult 09/25/2019 Gastric ulcer 2014 GERD (gastroesophageal reflux disease) History of IBS Hypertension Hypothyroid RICHAR on CPAP wears mask every night PCOS (polycystic ovarian syndrome) PONV (postoperative nausea and vomiting) 01/29/2022 Ventral hernia without obstruction or gangrene PAST SURGICAL HISTORY Procedure Laterality Date APPENDECTOMY 08/2019 ARTHROSCOPY, SHOULDER, SURGI Right 08/2022 SLAP REPAIR and Subacromial Decompression CHOLECYSTECTOMY COLONOSCOPY GEN ANES EGD F TOTAL ABDOMINAL HYSTERECTOMY PAST SURGICAL HISTORY OF Bilateral arthroscopic knee surgery- was catcher in college PAST SURGICAL HISTORY OF 08/2020 gastric sleeve PICC LINE INSERT/CONSULT 12/24/2020 VAGINAL DELIVERY AFTER DELIVERY Three C-sections FAMILY HISTORY Problem Relation Age of Onset Diabetes Mother Hypertension Mother Obesity Mother Hypertension Father Hypertension Brother Obesity Brother Hypertension Brother Obesity Brother Social History Tobacco Use Smoking status: Never Smokeless tobacco: Never Substance Use Topics Alcohol use: Not Currently Drug use: Never Comment: denies tx for drug/alcohol abuse in the past. (Not in a hospital admission) Current Facility-Administered Medications Medication Dose Route Frequency [START ON 11/19/2022] NaCl 0.9% 2,000 mL iv bolus 2,000 mL INTRAVENOUS ONCE iv contrast (radiology procedure) INTRAVENOUS DIRECTED PRN ALLERGIES Allergen Reactions Adhesive Tape-Silic* Intolerance Sensitive to certain adhesive tapes. Redness and itchy. Codeine GI Upset Nsaids (Non-Steroid* Contraindication-Medic al Surgical S/p RYGB Medication and Non-Pharmacologic VTE Prophylaxis/Anticoagul ants VTE Prophylaxis: VTE prophylaxis appropriate COMPLETE REVIEW OF SYSTEMS: CONSTITUTIONAL: No weight loss, malaise or fevers. HEENT: No changes in hearing or vision, no nose bleeds or other nasal problems. RESPIRATORY: Negative for cough, wheezing, or shortness of breath CARDIOVASCULAR: Negative for chest pain, leg swelling or palpitations GI: + abdominal pain and dry heaves, diarrhea, no melena, hematochezia : No history of dysuria, frequency, or hematuria MUSCULOSKELETAL: Negative for joint pain or swelling ENDOCRINE: Negative for cold or heat intolerance HEMATOLOGIC/LYMPHATIC: Negative for prolonged bleeding, or bruising easily. NEUROLOGIC: No history of syncope, paralysis, seizures or tremors. INTEGUMENTARY: Negative for lesions, rash, and itching. Objective PHYSICAL EXAM: Patient Vitals for the past 24 hrs: BP Temp Temp src Pulse Resp SpO2 11/17/22 1931 119/101 -- -- 81 16 97 % 11/17/22 1800 118/72 -- -- 90 16 98 % 11/17/22 1700 113/76 -- -- 86 16 100 % 11/17/22 1401 138/95 -- -- 85 -- 100 % 11/17/22 0708 152/101 36.4 ?C (97.6 ?F) Oral 89 20 100 % No intake or output data in the 24 hours ending 11/17/221942 CONSTITUTIONAL: Laying in bed in no acute distress NEUROLOGIC/PSYCHIATRIC : Alert, Oriented x3 HEENT: Sclera non-icteric LUNGS: Clear to auscultation bilaterally, no increased work of breathing on room air HEART: Regular rate and rhythm ABDOMEN: Soft, not distended, moderate epigastric tenderness to palpation, no rebound tenderness INTEGUMENTARY: No appreciable rashes or lesions MUSCULOSKELETAL: No deformities DATA: Diagnos (more content not included)... Normal [facility] CT ABD/PEL W IVCONon 023 CT ABD/PEL W IVCON * * *Final Report* * * DATE OF EXAM: Nov 17 2022 4:46PM FVC 0530 - CT ABD/PEL W IVCON / PROCEDURE REASON: Nausea/vomiting * * * * Physician Interpretation * * * * EXAMINATION: CT ABDOMEN AND PELVIS WITH IV CONTRAST CLINICAL HISTORY: Nausea and vomiting, endoscopic biliary sphincterotomy repair of jejunal jejunal mesenteric defect closed with suture TECHNIQUE: CT of the abdomen and pelvis was performed using standard technique, scanning from just above the dome of the diaphragm to the symphysis pubis. MQ: CTAP_3 Contrast: IV: 100 ml of Omnipaque 350 : ml of CT Radiation dose: Integrated Dose-length product (DLP) for this visit = 850 mGy*cm. CT Dose Reduction Employed: Automated exposure control (AEC) COMPARISON: 10/25/2022. RESULT: Liver: Multiple hepatic cysts again noted, similar to prior. Subcentimeter hypodensities are too small to characterize. Biliary: No bile duct dilation. Gallbladder is absent. Spleen: No mass. No splenomegaly. Pancreas: No mass or duct dilation. Adrenals: No mass. Kidneys: No mass, calculus or hydronephrosis. GI tract: No dilation or wall thickening. Postsurgical changes of Tan-en-Y gastric bypass surgery. There is some stranding located in the upper abdomen near the proximal aspect of the bypassed stomach. Lymph nodes: No abdominal or pelvic lymphadenopathy. Mesentery/Peritoneum: Small volume of ascites. Small volume of pneumoperitoneum. There is some fat stranding in the right lower quadrant. Retroperitoneum: No mass. Vasculature: - Abdominal aorta and iliac arteries: No aneurysm. - Celiac and SMA: Patent without stenosis. - Portal venous system (SMV, splenic vein, portal vein and branches): Patent. - Hepatic veins: Patent. Pelvis: Left adnexal cyst measuring up to 4 cm. Hysterectomy. Small volume of free fluid. Bones/Soft Tissues: Postsurgical changes noted in the ventral abdominal wall related to recent laparoscopic surgery including soft tissue stranding and gas. Lower thorax: Unremarkable. Crop Scout (topogram) images: No additional findings. IMPRESSION: 1. Inflammatory stranding noted in the upper abdomen, predominantly located along the proximal aspect of the bypassed stomach. There is also some mild fat stranding in the right lower quadrant. Findings are somewhat nonspecific, but may be postoperative in nature. 2. There is a small volume of pneumoperitoneum and ascites, findings which may be related to recent surgery. Bowel perforation is also a consideration, but considered less likely. Special Investigator: JUANCARLOS Transcribe Date/Time: Nov 17 2022 4:50P Dictated by : AINSLEY العراقي MD This examination was interpreted and the report reviewed and electronically signed by: AINSLEY العراقي MD on Nov 17 2022 5:09PM EST [id number] Normal [facility] Comprehensive metabolic 2000 panelon 11-17-2022 Albumin [Mass/Vol] 4.2 g/dL Normal 3.9-4.9 [facility] Comment on above: Order Comment: Speci men Type: BLOOD SPECIMENOrdering Facility: [facility] Address: [address] [address] Performed By: #### 3 040-3, 19360-5 ####[facility] LABORATORYCLIA [id number] [place] [address] [place] ALP [Catalytic activity/Vol] 69 U/L Normal 34-123 [facility] Comment on above: Order Comment: Speci men Type: BLOOD SPECIMENOrdering Facility: [facility] Address: [address] [place] [address] Performed By: #### 3 -3, ####OSVALDO LABORATORYCLIA [id number] [place] [address] [place] ALT [Catalytic activity/Vol] 22 U/L Normal 7-38 [facility] Comment on above: Order Comment: Speci men Type: BLOOD SPECIMENOrdering Facility: [facility] Address: [address] [address] Performed By: #### 3 -3, ####OSVAL[facility] LABORATORYCLIA [id number] [place] [address] [place] Anion gap [Moles/Vol] 9 mmol/L Normal 9-18 [facility] Comment on above: Order Comment: Speci men Type: BLOOD SPECIMENOrdering Facility: [facility] Address: [address] [address] Performed By: #### 3 -3, ####OS[facility] LABORATORYCLIA [id number] [place] [address] [place] AST [Catalytic activity/Vol] 40 U/L High 13-35 [facility] Comment on above: Order Comment: Speci men Type: BLOOD SPECIMENOrdering Facility: [facility] Address: [address] [place] [place] [address] Performed By: #### 3 -3, ####OSVAL[facility] LABORATORYCLIA [id number] [place] [address] [place] Bilirubin [Mass/Vol] 0.4 mg/dL Normal 0.2-1.3 [facility] Comment on above: Order Comment: Speci men Type: BLOOD SPECIMENOrdering Facility: [facility] Address: [address] [address] Performed By: #### 3 040-3, ####OSVAL[facility] LABORATORYCLIA [id number] [place] [id number] [place] Calcium [Mass/Vol] 8.8 mg/dL Normal 8.5-10.2 [facility] Comment on above: Order Comment: Speci men Type: BLOOD SPECIMENOrdering Facility: [facility] Address: [address] Performed By: #### 3 040-3, 57711-2 ####OSVAL[facility] LABORATORYCLIA [id number] [place] [address] [place] Chloride [Moles/Vol] 107 mmol/L High 97-105 [facility] Comment on above: Order Comment: Speci men Type: BLOOD SPECIMENOrdering Facility: [facility] Address: [address] [address] Performed By: #### 3 040-3, ####[facility] LABORATORYCLIA [id number] [place] [address] [place] CO2 [Moles/Vol] 23 mmol/L Normal 22-30 [facility] Comment on above: Order Comment: Speci men Type: BLOOD SPECIMENOrdering Facility: [facility] Address: [address] Performed By: #### 3 040-3, ####[facility] LABORATORYCLIA [id number] [place] [address] [place] Creatinine [Mass/Vol] 0.75 mg/dL Normal 0.58-0.96 [facility] Comment on above: Order Comment: Speci men Type: BLOOD SPECIMENOrdering Facility: [facility] Address: [address] Performed By: #### 3 040-3, 62278-5 ####[facility] LABORATORYCLIA [id number] [place] [address] [place] Creatinine and Glomerular filtration rate.predicted panel (S/P/Bld) 108 mL/min/1.73m??? Normal >=60 [facility] Comment on above: Order Comment: Speci men Type: BLOOD SPECIMENOrdering Facility: [facility] Address: [address] [place] [address] Result Comment: Rashmi mated Glomerular Filtration Rate (eGFR) is calculated using the 2020 CKD-EPI creatinine equation. This equation utilizes serum creatinine, sex, and age as parameters. The creatinine assay has traceable calibration to isotope dilution-mass spectrometry. Refer to KDIGO guidelines for clinical interpretation. In patients with unstable renal function, e.g. those with acute kidney injury, the eGFR may not accurately reflect actual GFR. Performed By: #### 3 040-3, 03020-2 ####OS[facility] LABORATORYCLIA [id number] [place] [address] [place] Glucose [Mass/Vol] 80 mg/dL Normal 74-99 [facility] Comment on above: Order Comment: [facility] Type: BLOOD SPECIMENOrdering Facility: [facility] Address: [place] [address] Result Comment: The [place] Diabetes [employer] (ADA) provides guidance for cutoff values for fasting glucose and random glucose. The ADA defines fasting as no caloric intake for at least 8 hours. Fasting plasma glucose results between 100 to 125 mg/dL indicate increased risk for diabetes (prediabetes). Fasting plasma glucose results greater than or equal to 126 mg/dL meet the criteria for diagnosis of diabetes. In the absence of unequivocal hyperglycemia, results should be confirmed by repeat testing. In a patient with classic symptoms of hyperglycemia or hyperglycemic crisis, random plasma glucose results greater than or equal to 200 mg/dL meet the criteria for diagnosis of diabetes. Reference: Standards of Medical Care in Diabetes 2016, [place] [employer]. Diabetes Care. 2016.39(Suppl 1). Performed By: #### 3 040-3, 06604-0 ####[facility] LABORATORYCLIA [id number] [place] [id number] [place] Potassium [Moles/Vol] 4.3 mmol/L Normal 3.7-5.1 [facility] Comment on above: Order Comment: Lyssa elida Type: BLOOD SPECIMENOrdering Facility: [facility] Address: [address] [place] [address] Performed By: #### 3 040-3, 31792-9 ####[facility] LABORATORYCLIA [id number] [place] [address] [place] Protein [Mass/Vol] 6.9 g/dL Normal 6.3-8.0 [facility] Comment on above: Order Comment: Speci men Type: BLOOD SPECIMENOrdering Facility: [facility] Address: [address] [address] Performed By: #### 3 040-3, ####[facility] LABORATORYCLIA [id number] [address] [place] Sodium [Moles/Vol] 139 mmol/L Normal 136-144 [facility] Comment on above: Order Comment: Speci men Type: BLOOD SPECIMENOrdering Facility: [facility] Address: [address] [address] Performed By: #### 3 040-3, ####[facility] LABORATORYCLIA [id number] [address] [place] Urea nitrogen [Mass/Vol] 8 mg/dL Normal 7-21 [facility] Comment on above: Order Comment: Speci men Type: BLOOD SPECIMENOrdering Facility: [facility] Address: [address] [place] [address] Performed By: #### 3 040-3, ####[facility] LABORATORYCLIA [id number] [address] OF [facility] ED NOTEon 11-17-2022 ED NOTE HNO ID: [id number] Author: Jayla Jean RN Service: ? Author Type: Registered Nurse Type: ED Notes Filed: 11/17/2022 2:00 PM Note Text: Pt sts symptoms she feels like she is going to pass out in WR. Vitals rechecked and DS done Normal [facility] ED PROV NOTEon 11-17-2022 ED PROV NOTE HNO ID: [id number] Author: Xiomara Waters MD Service: ? Author Type: Physician Type: ED Provider Notes Filed: 11/17/2022 6:48 PM Note Text: ED CONTINUATION OF CARE NOTE Code Status: Full Code Assumed care from: Dr. Hamm Presentation / Findings / Interventions / Plan / Items to Follow Up: General surgery consult Patient was evaluated in ED and plan will be admission under Dr. Kat for IV hydration and symptom management. Ok to eat - NPO after midnight. ED Course as of 11/17/221846 Others' Documentation Tue Nov 17, 2022 1600 On reevaluation, reporting improvement in her abdominal pain though persistent nausea. We will administer droperidol and reevaluate [MB] 9624 Attending Note I have personally performed a face to face assessment of the patient and have reviewed the PA/RADIO ELECTRICIAN note. I performed a substantive portion of the visit including all aspects of the following. My paula findings include: History: Left upper quadrant abdominal pain. Recent abdominal surgery and ERCP. Exam: Tenderness in epigastric and left upper quadrant area. Assessment/Plan: Intractable abdominal pain and nausea. General surgery consult pending. Other additions or changes: As edited Signature: Serena Hamm DO Date: 11/17/2022 Time: 5:59 PM [CM] ED Course User Index [CM] Serena Hamm DO [MB] Elizabeth Kaplan PA-C Clinical Impressions as of 11/17/221846 Left upper quadrant abdominal pain Sphincter of Oddi dysfunction Intractable pain Intractable nausea and vomiting Medical Decision Making SIGNATURE: Xiomara Waters MD PATIENT NAME: Abbey Garcia DATE: November 17, 2022 TIME: 6:47 PM PAGER/CONTACT #: XIOMARA WATERS 11/17/221847 [facility] ED PROV NOTE HNO ID: [id number] Author: Serena Hamm DO Service: Emergency Medicine Author Type: Physician Type: ED Provider Notes Filed: 11/20/2022 8:16 AM Note Text: ED Provider Note Patient Name: Abbey Garcia : 1990 SERVICE DATE: 11/17/22 History Patient presents with: Abdominal Pain: LUQ abdominal pain that radiates towards patient's belly button and to her back, pt states she had abdominal surgery last Wednesday Dizziness: Pt states that she has had worsening dizziness this morning, nausea and vomiting, pt hasn't been able to keep anything down in 8 hours Patient is a 32-year-old female with a history of GERD, PCOS, RICHAR, sphincter of Oddi dysfunction, history of Tan-en-Y gastric bypass who presents emergency department with left-sided abdominal pain onset yesterday. States that she is status post a laparoscopic procedure with repair of jejunal mesenteric defect, endoscopic biliary sphincterotomy for sphincter of Oddi dysfunction on 11/11. Reports that starting yesterday, she began to have a sharp and stabbing pain in the mid abdomen. She called her surgeon who advised her to take tramadol and to call the on-call surgeon should her symptoms worsen. Then last night, the pain became significantly worse and she was unable to eat or drink anything due to the pain. States that anytime she would try to eat or drink anything, she would have an episode of emesis. Denies any hematemesis. Did have diarrhea yesterday but no hematochezia. No constipation. Reports that the pain is a constant dull sensation though there is sharp and stabbing and more severe every few minutes. Denies any alleviating factors. Reports chills though no fevers. No dysuria or hematuria. PAST MEDICAL HISTORY Diagnosis Date Anemia Takes Pro FE daily. Arthritis Asthma Class 1 obesity without serious comorbidity with body mass index (BMI) of 33.0 to 33.9 in adult 09/25/2019 Gastric ulcer 2013 GERD (gastroesophageal reflux disease) History of IBS Hypertension Hypothyroid RICHAR on CPAP wears mask every night PCOS (polycystic ovarian syndrome) PONV (postoperative nausea and vomiting) 01/29/2022 Ventral hernia without obstruction or gangrene PAST SURGICAL HISTORY Procedure Laterality Date APPENDECTOMY 08/2019 ARTHROSCOPY, SHOULDER, SURGI Right 08/2022 SLAP REPAIR and Subacromial Decompression CHOLECYSTECTOMY COLONOSCOPY GEN ANES EGD F TOTAL ABDOMINAL HYSTERECTOMY PAST SURGICAL HISTORY OF Bilateral arthroscopic knee surgery- was catcher in college PAST SURGICAL HISTORY OF 08/2020 gastric sleeve PICC LINE INSERT/CONSULT 12/24/2020 VAGINAL DELIVERY AFTER DELIVERY Three C-sections FAMILY HISTORY Problem Relation Age of Onset Diabetes Mother Hypertension Mother Obesity Mother Hypertension Father Hypertension Brother Obesity Brother Hypertension Brother Obesity Brother Social History Tobacco Use Smoking status: Never Smokeless tobacco: Never Substance and Sexual Activity Alcohol use: Not Currently Drug use: Never Comment: denies tx for drug/alcohol abuse in the past. Sexual activity: Yes Partners: Male Comment: Nexplanon impact ALLERGIES Allergen Reactions Adhesive Tape-Silic* Intolerance Sensitive to certain adhesive tapes. Redness and itchy. Codeine GI Upset Nsaids (Non-Steroid* Contraindication-Medic al Surgical S/p RYGB Review of Systems Constitutional: Positive for chills. Respiratory: Negative for shortness of breath. Cardiovascular: Negative for chest pain. Gastrointestinal: Positive for abdominal pain, diarrhea, nausea and vomiting. Negative for blood in stool and constipation. Genitourinary: Negative for dysuria and hematuria. Skin: Negative for color change. Allergic/Immunologic: Negative for immunocompromised state. Hematological: Does not bruise/bleed easily. Physical Exam Vitals BP Pulse Temp Temp src Resp SpO2 Weight Height 11/17/22 0708 11/17/22 0708 11/17/22 0708 11/17/22 0708 11/17/22 0708 11/17/22 0708 11/17/22211311/17/222113 152/101 89 36.4 ?C (97.6 ?F) Oral 20 100 % 84.3 kg (185 lb 14.4 oz) 1.676 m (5' 6 ) Physical Exam Constitutional: General: She is not in acute distress. Appearance: She is not ill-appearing or toxic-appearing. HENT: Head: Normocephalic and atraumatic. Eyes: General: No scleral icterus. Cardiovascular: Rate and Rhythm: Normal rate and regular rhythm. Heart sounds: No murmur heard. No friction rub. No gallop. Pulmonary: Effort: Pulmonary effort is normal. Breath sounds: No wheezing, rhonchi or rales. Abdominal: General: Abdomen is flat. Bowel sounds are normal. There is no distension. Palpations: Abdomen is soft. Tenderness: There is abdominal tenderness (There is tenderness to palpation in the left upper to mid abdomen just above the level of the umbilicus) in the left upper quadrant. There is no right CVA tenderness, left (more content not included)... Normal [facility] ED Triage Noteon 11-17-2022 ED Triage Note HNO ID: [id number] Author: Kuldip Pereyra MD Service: ? Author Type: Physician Type: ED Triage Notes Filed: 11/17/2022 11:49 AM Note Text: ED INTAKE NOTE Patient Name: Abbey Garcia Service Date: 11/17/22 BRIEF HPI: Patient is a 32-year-old female 1 week post surgery who presents complaining of abdominal cramping and pain primarily in the left upper quadrant. No fever at home but did have chills. Patient did communicate with her surgeon who advised that she come in for work-up. BRIEF EXAM: Awake and Alert RRR CTAB Abd soft/ND; no rebound/guarding, mild tenderness in the left upper quadrant INTAKE WORKUP: Bloodwork: CBC, CMP, UA Diagnosis: Abdominal pain post surgery SIGNATURE: Kuldip Pereyra MD Normal [facility] Lipase SerPl-cCncon 11-18-19 Lipase [Catalytic activity/Vol] 26 U/L Normal [facility] Comment on above: Order Comment: Speci men Type: BLOOD SPECIMENOrdering Facility: [facility] Address: [address] [place] [address] Performed By: #### 3 040-3, 42961-7 ####[facility] LABORATORYCLIA [id number] [address] NURSING PROGon 11-17-2022 NURSING PROG HNO ID: [id number] Author: Thuy Branch RN Service: ? Author Type: Registered Nurse Type: Nursing Progress Note Filed: 11/17/2022 9:27 PM Note Text: Transfer Note: PATIENT NAME: Abbey Garcia Patient Location: [address] [place] [address] [address] Room: [place] [address] Patient transferred into room/unit PK3 C35 in stable condition. Actions taken: No futher actions taken at this time. Will continue to monitor and check with patient. Normal [facility] NURSING PROG HNO ID: [id number] Author: Michaela Anguiano RN Service: Nursing Author Type: Registered Nurse Type: Nursing Progress Note Filed: 11/17/2022 9:21 PM Note Text: Transfer Note: PATIENT NAME: Abbey Garcia Patient Location: [address] [place] [address] [address] Room: [place] [address] Patient transferred into room/unit PK335 in stable condition. Actions taken: No futher actions taken at this time. Will continue to monitor and check with patient. Normal [facility] Ambulatory Visit Summaryon 1 Ambulatory Visit Summary ABBEY GARCIA :1990 Visit Date:11/16/2022 Ambulatory Visit Instructions Your Diagnosis Hypothyroid Status post surgery Fatigue Malnourished BMI 29.0-29.9,adult Non-smoker Your Care Team Attending Physician - Jaquan Paula Primary Care Physician - Jaquan Paula This Is Your Medications List busPIRone (busPIRone 10 mg Tab) escitalopram (escitalopram 20 mg Tab) levothyroxine (levothyroxine 100 mcg (0.1 mg) Tab) liothyronine (liothyronine 5 mcg Tab) mirtazapine (mirtazapine 15 mg Tab) ondansetron (Zofran 4 mg Tab) promethazine (promethazine 25 mg Tab) topiramate (Topamax 100 mg Tab) Procedures Performed Endoscopic retrograde cholangiopancreatograp hy (ERCP); diagnostic, including collection of specimen(s) by brushing or washing, when performed (separate procedure) (11/11/2022), Laparoscopy, abdomen, peritoneum, and omentum, diagnostic, with or without collection of specimen(s) by brushing or washing (separate procedure) (11/11/2022), Esophagogastroduodenos copy, flexible, transoral; diagnostic, including collection of specimen(s) by brushing or washing, when performed (separate procedure) (10/27/2022), Revision (01/29/2022), Gastric sleeve (02/15/2021), Esophagogastroduodenos copy (01/20/2021), Hysterectomy (11/04/2020), Appendectomy, Cholecystectomy, Colonoscopy. Discharge Vitals Heart Rate (Peripheral) 76 Respiratory Rate 18 Blood Pressure 110/82 Height 168.0 cm Height 66 in Weight 83.73 kg Weight 184.206 lb BMI 29.67 What to do next Scheduled Follow-Up Appointments 2022 2:30 PM EDT With: Alie JOHNSON, Odilon Rosario Where: [facility] [place] Wednesday 10:00 AM EST With: Nasim JOHNSON, Rajni Ballesteros Where: [facility] Family Medicine Office/Clini c Noteon 11-16-2022 [facility] Medicine Office/Clinic Note HPI Staff Abbey is a 32 year old female presenting for visit Pain characteristics: Pain location: 6/10 Intensity:_ Onset: Medication used: no Pt had surgery on 11/11/22 [facility] found whole bottom of stomach and bile duct was closing Questions/Concerns: pt continues to have nausea, no vomiting feels very weak still, pt states going back to [facility] for IV fluids/vitamins History of Present Illness pt presents today for post op follow up Review of Systems PHQ Score Initial Depression Screen Score: 0 ROS - Provider Constitutional: no fever, no chills, no sweats, no fatigue Respiratory: no shortness of breath, no cough, no orthopnea, no wheezing. Cardiovascular: no chest pain, no palpitations, no edema. Neurologic: no headache, no dizziness, no numbness, no weakness. nausea, no desire to eat solid food. healing surgical incisions Physical Exam Vitals & Measurements HR: 76(Peripheral) RR: 18 BP: 110/82 SpO2: 98% HT: 66 in HT: 168.0 cm WT: 83.73 kg WT: 184.206 lb BMI: 29.67 General: alert, no acute distress ENMT: oral mucosa moist, no pharyngeal erythema or exudate Cardiovascular: regular rate and rhythm, normal peripheral perfusion Respiratory: Lungs CTA, respirations non labored Extremities: no deformity, no trauma Neurological: oriented x 4, LOC appropriate for age, CN II-XII intact, motor strength equal & normal bilaterally, speech normal abdominal surgical incisions are healing well. no redness or drainage noted Assessment/Plan 1. Hypothyroid (E03.9: Hypothyroidism, unspecified) TSH drawn in office today. will adjust dose if needed. pt sates she feels it is off because she is always cold. had difficulty drawing labs in office today. pt was given paper order to have labs drawn tomorrow when she goes for IV hydration. Ordered: CBC w/ Auto Diff Comprehensive Metabolic Panel Thyroid Stimulating Hormone 2. Status post surgery (Z98.890: Other specified postprocedural states) pt had surgery 11/11. She had a hole in stomach (from bariatric surgery) that was leaking and also had issue with bile duct that was also fixed. all incision are healing well. bruising is also starting to heal Ordered: CBC w/ Auto Diff Comprehensive Metabolic Panel Thyroid Stimulating Hormone 3. Fatigue (R53.83: Other fatigue) will check labs today. pt is scheduled in [place] for IV hydration tomorrow Ordered: CBC w/ Auto Diff Comprehensive Metabolic Panel Thyroid Stimulating Hormone 4. Malnourished (E46: Unspecified protein-calorie malnutrition) pt is working on increasing food intake but is still having nausea Ordered: CBC w/ Auto Diff Comprehensive Metabolic Panel Thyroid Stimulating Hormone 5. BMI 29.0-29.9,adult (Z68.29: Body mass index [BMI] 29.0-29.9, adult) BMI education complete Ordered: CBC w/ Auto Diff Comprehensive Metabolic Panel Thyroid Stimulating Hormone 6. Non-smoker (Z78.9: Other specified health status) continue not smoking Ordered: CBC w/ Auto Diff Comprehensive Metabolic Panel Thyroid Stimulating Hormone Follow-up No qualifying data available Problem List/Past Medical History Ongoing Abnormal thyroid blood test Arthritis Asthma BMI 30.0-30.9,adult Depression Dysfunction of sphincter of Oddi Fatigue Gall stone Hyperthyroidism Hypothyroid Kidney cysts Kidney stone LUQ pain Malnourished Mixed incontinence urge and stress Nausea Rash of body Renal cyst Right flank pain Status post surgery Historical Allergic rhinitis Anemia Hypothyroidism Metabolic syndrome PCOS- polycystic ovary syndrome Procedure/Surgical History Endoscopic retrograde cholangiopancreatograp hy (ERCP); diagnostic, including collection of specimen(s) by brushing or washing, when performed (separate procedure) (11/11/2022), Laparoscopy, abdomen, peritoneum, and omentum, diagnostic, with or without collection of specimen(s) by brushing or washing (separate procedure) (11/11/2022), Esophagogastroduodenos copy, flexible, transoral; diagnostic, including collection of specimen(s) by brushing or washing, when performed (separate procedure) (10/27/2022), Revision (01/29/2022), Gastric sleeve (02/15/2021), Esophagogastroduodenos copy (01/20/2021), Hysterectomy (11/04/2020), Appendectomy, Cholecystectomy, Colonoscopy. Medications busPIRone 10 mg Tab, 10 mg= 1 tab(s), Oral, BID escitalopram 20 mg Tab, 20 mg= 1 tab(s), Oral, Daily levothyroxine 100 mcg (0.1 mg) Tab, 100 mcg= 1 tab(s), Oral, Daily, 1 refills liothyronine 5 mcg Tab, 5 mcg, Oral, Daily, 1 refills mirtazapine 15 mg Tab, 15 mg= 1 tab(s), Oral, Once a day (at bedtime) promethazine 25 mg Tab, 25 mg= 1 tab(s), Oral, TID Topamax 100 mg Tab, Oral, BID Zofran 4 mg Tab, 4 mg= 1 tab(s), Oral, q6hr, PRN Allergies NSAIDs (Unknown) codeine (unknown) Social History Alcohol - Denies Alcohol Use, 12/20/2020 Substance Abuse - Denies Substance Abuse, 12/20/2020 Tobacco - Denies Tobac (more content not included)... Normal [facility] Comment on above: Result Comment: Elec tronically Signed By: Jaquan Paula\.br\Date and Time Signed: 11/16/22 10:42 EDT Basic metabolic 2000 panelon 11-12-2022 Anion gap [Moles/Vol] 12 mmol/L Normal 9-18 [facility] Comment on above: Order Comment: Speci men Type: BLOOD SPECIMENOrdering Facility: [facility] Address: [address] [address] Performed By: #### 2 4321-2 ####[facility] LABORATORYCLIA [id number] [place] [address] [place] Calcium [Mass/Vol] 8.8 mg/dL Normal 8.5-10.2 [facility] Comment on above: Order Comment: Speci men Type: BLOOD SPECIMENOrdering Facility: [facility] Address: [address] [address] Performed By: #### 2 4321-2 ####[facility] LABORATORYCLIA [id number] [place] [address] [place] Chloride [Moles/Vol] 104 mmol/L Normal 97-105 [facility] Comment on above: Order Comment: Speci men Type: BLOOD SPECIMENOrdering Facility: [facility] Address: [address] [address] Performed By: #### 2 4321-2 ####[facility] LABORATORYCLIA [id number] [place] [address] [place] CO2 [Moles/Vol] 20 mmol/L Low 22-30 [facility] Comment on above: Order Comment: Speci men Type: BLOOD SPECIMENOrdering Facility: [facility] Address: [address] [address] Performed By: #### 2 4321-2 ####[facility] LABORATORYCLIA [id number] [address] Creatinine [Mass/Vol] 0.62 mg/dL Normal 0.58-0.96 [facility] Comment on above: Order Comment: Speci men Type: BLOOD SPECIMENOrdering Facility: [facility] Address: [address] [place] [address] Performed By: #### 2 4321-2 ####[facility] LABORATORYCLIA [id number] [address] Creatinine and Glomerular filtration rate.predicted panel (S/P/Bld) 121 mL/min/1.73m??? Normal >=60 [facility] Comment on above: Order Comment: Speci men Type: BLOOD SPECIMENOrdering Facility: [facility] Address: [address] [place] [address] Result Comment: Rashmi mated Glomerular Filtration Rate (eGFR) is calculated using the 2020 CKD-EPI creatinine equation. This equation utilizes serum creatinine, sex, and age as parameters. The creatinine assay has traceable calibration to isotope dilution-mass spectrometry. Refer to KDIGO guidelines for clinical interpretation. In patients with unstable renal function, e.g. those with acute kidney injury, the eGFR may not accurately reflect actual GFR. Performed By: #### 2 4321-2 ####[facility] LABORATORYCLIA [id number] [address] [place] Glucose [Mass/Vol] 102 mg/dL High 74-99 [facility] Comment on above: Order Comment: Speci men Type: BLOOD SPECIMENOrdering Facility: [facility] Address: [address] [address] Result Comment: The [place] Diabetes [employer] (ADA) provides guidance for cutoff values for fasting glucose and random glucose. The ADA defines fasting as no caloric intake for at least 8 hours. Fasting plasma glucose results between 100 to 125 mg/dL indicate increased risk for diabetes (prediabetes). Fasting plasma glucose results greater than or equal to 126 mg/dL meet the criteria for diagnosis of diabetes. In the absence of unequivocal hyperglycemia, results should be confirmed by repeat testing. In a patient with classic symptoms of hyperglycemia or hyperglycemic crisis, random plasma glucose results greater than or equal to 200 mg/dL meet the criteria for diagnosis of diabetes. Reference: Standards of Medical Care in Diabetes 2016, [place] [employer]. Diabetes Care. 2016.39(Suppl 1). Performed By: #### 2 4321-2 ####[facility] LABORATORYCLIA [id number] [place] [address] [place] Potassium [Moles/Vol] 4.2 mmol/L Normal 3.7-5.1 [facility] Comment on above: Order Comment: Speci men Type: BLOOD SPECIMENOrdering Facility: [facility] Address: [address] [address] Performed By: #### 2 4321-2 ####[facility] LABORATORYCLIA [id number] [place] [address] [place] Sodium [Moles/Vol] 136 mmol/L Normal 136-144 [facility] Comment on above: Order Comment: Speci men Type: BLOOD SPECIMENOrdering Facility: [facility] Address: [address] [address] Performed By: #### 2 4321-2 ####[facility] LABORATORYCLIA [id number] [place] [address] [place] Urea nitrogen [Mass/Vol] 8 mg/dL Normal 7-21 [facility] Comment on above: Order Comment: Speci men Type: BLOOD SPECIMENOrdering Facility: [facility] Address: [address] [address] Performed By: #### 2 4321-2 ####[facility] LABORATORYCLIA [id number] [place] [address] [place] CBC W Auto Differential pane l (Bld)on 11-12-2022 Basophils (Bld) [#/Vol] 10*3/uL Normal <0.11 [facility] Comment on above: Order Comment: Speci men Type: BLOOD SPECIMENOrdering Facility: [facility] Address: [address] [address] Performed By: #### 5 7021-8 ####[facility] LABORATORYCLIA [id number] [place] [address] [place] Basophils/100 WBC (Bld) 0.2 % Normal [facility] Comment on above: Order Comment: Speci men Type: BLOOD SPECIMENOrdering Facility: [facility] Address: [address] [place] [address] Performed By: #### 5 7021-8 ####[facility] LABORATORYCLIA [id number] [address] [place] Differential cell count method Nom (Bld) Auto Normal [facility] Comment on above: Order Comment: Speci men Type: BLOOD SPECIMENOrdering Facility: [facility] Address: [address] [place] [address] Performed By: #### 5 7021-8 ####[facility] LABORATORYCLIA [id number] [address] [place] Eosinophils (Bld) [#/Vol] 10*3/uL Normal <0.46 [facility] Comment on above: Order Comment: Speci men Type: BLOOD SPECIMENOrdering Facility: [facility] Address: [address] [place] [address] Performed By: #### 5 7021-8 ####[facility] LABORATORYCLIA [id number] [address] [place] Eosinophils/100 WBC (Bld) 0.0 % Normal [facility] Comment on above: Order Comment: Speci men Type: BLOOD SPECIMENOrdering Facility: [facility] Address: [address] [place] [address] Performed By: #### 5 7021-8 ####[facility] LABORATORYCLIA [id number] [place] [address] [place] Erythrocyte distribution width (RBC) [Ratio] 12.6 % Normal 11.5-15.0 [facility] Comment on above: Order Comment: Speci men Type: BLOOD SPECIMENOrdering Facility: [facility] Address: [address] [address] Performed By: #### 5 7021-8 ####[facility] LABORATORYCLIA [id number] [place] [address] [place] Hematocrit (Bld) [Volume fraction] 36.9 % Normal 36.0-46.0 [facility] Comment on above: Order Comment: Speci men Type: BLOOD SPECIMENOrdering Facility: [facility] Address: [address] [place] [address] Performed By: #### 5 7021-8 ####[facility] LABORATORYCLIA [id number] [place] [address] [place] Hemoglobin (Bld) [Mass/Vol] 12.8 g/dL Normal 11.5-15.5 [facility] Comment on above: Order Comment: Speci men Type: BLOOD SPECIMENOrdering Facility: [facility] Address: [address] [place] [address] Performed By: #### 5 7021-8 ####[facility] LABORATORYCLIA [id number] [address] [place] Immature granulocytes (Bld) [#/Vol] 0.08 10*3/uL Normal <0.10 [facility] Comment on above: Order Comment: Speci men Type: BLOOD SPECIMENOrdering Facility: [facility] Address: [address] [place] [address] Performed By: #### 5 7021-8 ####[facility] LABORATORYCLIA [id number] [address] [place] Immature granulocytes/100 WBC (Bld) 0.8 % Normal [facility] Comment on above: Order Comment: Speci men Type: BLOOD SPECIMENOrdering Facility: [facility] Address: [address] [place] [address] Performed By: #### 5 7021-8 ####[place] LABORATORYCLIA [id number] [address] [place] [facility] Lymphocytes (Bld) [#/Vol] 1.23 10*3/uL Normal 1.00-4.00 [facility] Comment on above: Order Comment: Speci men Type: BLOOD SPECIMENOrdering Facility: [facility] Address: [address] [place] [address] Performed By: #### 5 7021-8 ####[place] LABORATORYCLIA [id number] [address] Lymphocytes/100 WBC (Bld) 12.8 % Normal [facility] Comment on above: Order Comment: Speci men Type: BLOOD SPECIMENOrdering Facility: [facility] Address: [address] [place] [address] Performed By: #### 5 7021-8 ####[facility] LABORATORYCLIA [id number] [address] [facility] MCH (RBC) [Entitic mass] 30.4 pg Normal 26.0-34.0 [facility] Comment on above: Order Comment: Speci men Type: BLOOD SPECIMENOrdering Facility: [facility] Address: [address] [place] [address] Performed By: #### 5 7021-8 ####[facility] LABORATORYCLIA [id number] [address] [place] MCHC (RBC) [Mass/Vol] 34.7 g/dL Normal 30.5-36.0 [facility] Comment on above: Order Comment: Speci men Type: BLOOD SPECIMENOrdering Facility: [facility] Address: [address] [place] [address] Performed By: #### 5 7021-8 ####[facility] LABORATORYCLIA [id number] [address] STATES OF [facility] MCV (RBC) [Entitic vol] 87.6 fL Normal 80.0-100.0 [facility] Comment on above: Order Comment: Speci men Type: BLOOD SPECIMENOrdering Facility: [facility] Address: [address] [address] Performed By: #### 5 7021-8 ####[facility] LABORATORYCLIA [id number] [place] [address] [place] Monocytes (Bld) [#/Vol] 0.42 10*3/uL Normal <0.87 [facility] Comment on above: Order Comment: Speci men Type: BLOOD SPECIMENOrdering Facility: [facility] Address: [address] [address] Performed By: #### 5 7021-8 ####[facility] LABORATORYCLIA [id number] [place] [address] [place] Monocytes/100 WBC (Bld) 4.4 % Normal [facility] Comment on above: Order Comment: Speci men Type: BLOOD SPECIMENOrdering Facility: [facility] Address: [address] [address] Performed By: #### 5 7021-8 ####[facility] LABORATORYCLIA [id number] [place] [address] [place] Neutrophils (Bld) [#/Vol] 7.84 10*3/uL High 1.45-7.50 [facility] Comment on above: Order Comment: Speci men Type: BLOOD SPECIMENOrdering Facility: [facility] Address: [address] [place] [address] Performed By: #### 5 7021-8 ####[facility] LABORATORYCLIA [id number] [place] [address] [place] Neutrophils/100 WBC (Bld) 81.8 % Normal [facility] Comment on above: Order Comment: Speci men Type: BLOOD SPECIMENOrdering Facility: [facility] Address: [address] [place] [address] Performed By: #### 5 7021-8 ####[facility] LABORATORYCLIA [id number] [place] [address] [place] Nucleated RBC (Bld) [#/Vol] 10*3/uL Normal <0.01 [facility] Comment on above: Order Comment: Speci men Type: BLOOD SPECIMENOrdering Facility: [facility] Address: [address] [address] Performed By: #### 5 7021-8 ####[facility] LABORATORYCLIA [id number] [place] [address] [place] Nucleated RBC/100 WBC (Bld) [Ratio] 0.0 /100 WBC Normal [facility] Comment on above: Order Comment: Speci men Type: BLOOD SPECIMENOrdering Facility: [facility] Address: [address] [address] Performed By: #### 5 7021-8 ####[facility] LABORATORYCLIA [id number] [place] [address] [place] Platelet mean volume (Bld) [Entitic vol] 11.3 fL Normal 9.0-12.7 [facility] Comment on above: Order Comment: Speci men Type: BLOOD SPECIMENOrdering Facility: [facility] Address: [address] [address] Performed By: #### 5 7021-8 ####[facility] LABORATORYCLIA [id number] [place] [address] [place] Platelets (Bld) [#/Vol] 253 10*3/uL Normal 150-400 [facility] Comment on above: Order Comment: Speci men Type: BLOOD SPECIMENOrdering Facility: [facility] Address: [address] [address] Performed By: #### 5 7021-8 ####[facility] LABORATORYCLIA [id number] [place] [address] [place] RBC (Bld) [#/Vol] 4.21 10*6/uL Normal 3.90-5.20 [facility] Comment on above: Order Comment: Speci men Type: BLOOD SPECIMENOrdering Facility: [facility] Address: [address] [place] [address] Performed By: #### 5 7021-8 ####[facility] LABORATORYCLIA [id number] [place] [address] [place] WBC (Bld) [#/Vol] 9.59 10*3/uL Normal 3.70-11.00 [facility] Comment on above: Order Comment: Geraldo marrero Type: BLOOD SPECIMENOrdering Facility: [facility] Address: [facility] [address] [id number] Performed By: #### 5 7021-8 ####[facility] LABORATORYCLIA [id number] [address] [place] [id number] [facility] [place] CNDSon 11-12-2022 CNDS HNO ID: [id number] Author: Vicky Miranda PA-C Service: General Surgery Author Type: Physician Enrollment Representative Type: Discharge Summary Filed: 11/12/2022 4:27 PM Note Text: Attestation signed by Deacon Kat MD at 11/13/2022 11:38 AM I saw and evaluated the patient. Discussed with the resident and agree with resident's findings and plan as documented in the resident's note. Deacon Kat MD DISCHARGE SUMMARY PATIENT NAME: Abbey Garcia ADMISSION DATE: 11/11/2022 DISCHARGE DATE: 11/12/2022 ATTENDING PHYSICIAN: Deacon Kat MD Code Status: Not on file Highest Readmission Risk Score: 18 The 30 day readmissions risk score is derived from an internally validated risk model which evaluates patient level characteristics, utilization history, medication orders and lab results up until the day of discharge. Patients with a score of 40 or above are considered highest risk for readmission. Specific patient level drivers will be listed at the bottom of the summary. CONSULTING TEAMS DURING HOSPITALIZATION: None Treatment Team: Attending Provider: Deacon Kat MD REASON FOR HOSPITALIZATION: Sphincter of Oddi Dysfunction DIAGNOSIS: -Malnutrition of mild degree (HCC) (POA: Yes), diet advancement with the return of bowel function OPERATIONS DURING HOSPITALIZATION: 1. Laparoscopic gastric exploration (to facilitate ERCP with sphincterotomy). 2. Diagnostic laparoscopy with closure of jejunojejunostomy defect. PROCEDURES DURING HOSPITALIZATION: Intubation HOSPITAL COURSE: Ms. Garcia was admitted following the above described operation, which was performed without complication. Post operatively she was admitted to a regular nursing floor for further recovery. She was encouraged to ambulate to minimize her risk for developing a DVT, and to promote bowel function. Her diet was advanced, and her medications were converted to oral and tolerated. On November 12, 2022 her vital signs were normal, she had satisfactory toleration of a PO diet, and adequate pain control on oral medications. She was given instructions to follow up in the clinic on an outpatient basis. PATIENT CONDITION AT DISCHARGE: Stable DISCHARGE DISPOSITION: Home with Self Care INFORMATION PROVIDED TO PATIENT: Home Going Instructions After an Abdominal Operation Symptoms or health problems to watch for after I leave the hospital: -Increasing abdominal pain or swelling -Vomiting -Dark or no urine -Fever greater than 101.5?F (38.6?C) or chills -Unable to take in liquids or solid foods for greater than 24 hours -Shortness of breath -Chest pain -Racing heartbeat -Difficulty urinating -Bloody, dark, or tarry stool from rectum For these or any other concerning symptom, please call immediately for advice A restricted diet should be followed for the next 2 weeks (please refer below for recommendations). After 2 weeks of diet restrictions, you may resume a normal diet by adding one new food at a time. A GI soft diet is soft in texture, low in fiber and easy to digest. When eating a GI soft diet it is important to chew all foods slowly and thoroughly. Try to drink at least 8 cups of fluid every day. Fluids could be in the form of liquid, pudding, ice cream, sherbet, popsicles, soups, gelatin, or yogurt. Don?t try to eat the following foods: Tough, fibrous meats with casings, such as sausage or kielbasa. Potter peanut butter. Nuts. Beans. Dried fruits. Fresh fruits with peals Raw vegetables. Potato skins. Popcorn. The following foods are good for your GI diet: Chicken, turkey, fish and tender beef or pork. Eggs. Creamy nut butters. Avocado. Applesauce. Canned peaches and pears. Well-cooked vegetables. Cereals with less than 2 grams fiber per serving. White rice, pasta, or bread. Milk, cheese, yogurt, milkshakes, pudding, cottage cheese, ice cream, sherbet. Marshmallows. Soft cookies or pretzels. 2 Activity: Walking is encouraged, and climbing stairs is acceptable, but strenuous activity (e.g., lifting objects weighing over 15 lbs, sit-ups, press-ups) should be avoided for 2-4 weeks after laparoscopic surgery. Avoid sitting or lying in bed for more than 2 hours at a time while you are awake to reduce your risk of blood clots. 3. Pain Medication: - It is recommended that you take scheduled Tylenol for the first several days you are home. If you are given a narcotic medication take this for severe breakthrough pain only. -You may use an ice pack for 20 minute three times a day for pain relief -Do not drive a motor vehicle, or operate power tools and machinery while taking narcotic pain reliever. It is important to keep stronger pain medication safely stored, as it is at great ris (more content not included)... Normal [facility] Zachary 11-12-2022 [facility] NURSING PROGon 11-12-2022 NURSING PROG HNO ID: [id number] Author: Crystal Atwood, RN Service: ? Author Type: Registered Nurse Type: Nursing Progress Note Filed: 11/12/2022 12:25 PM Note Text: Daily Note: 0834-Pt sitting up in chair at this time. Reports abdominal cramping and tightness. Reports mild nausea as well, currently eating breakfast. Medicated with prn zofran. Abdomen is soft, bowel sounds hypoactive. Lap sites HOSPITAL WELLNESS COORDINATOR with glue, no drainage present. Gauze dressing over pack lap site CDI. Denies flatus. Lungs are clear. Equal push/pulls bilaterally. Safety maintained. Will continue to monitor. 0900-Pt requesting gas-x. Encouraged to ambulate, pt ambulated POD with RN. Text page sent to orange team pager for gas-x request. 1015-Pt reports feeling tightness in chest, like with my asthma when I need a breathing treatment. All vitals stable, pt not in any respiratory distress. Text page sent to orange team pager requesting order for breathing treatment. 1047-Pt reports feeling nauseated, appears flushed. Cool washcloth placed on forehead. Medicated with prn compazine. 1210-Pt observed sleeping in bed. Safety maintained. [facility] NUTRITIONon 11-12-2022 NUTRITION HNO ID: [id number] Author: Tomasa Franklin RD Service: NST-Nutrition Support Team Author Type: Registered Dietitian Type: Nutrition Filed: 11/12/2022 2:41 PM Note Text: NUTRITION THERAPY INITIAL ASSESSMENT SERVICE DATE: 11/12/2022 SERVICE TIME: 2:39 PM Nutrition Assessment: Recommended Malnutrition Diagnosis: Mild Protein-Calorie Malnutrition In the context of: Acute Illness or Injury Based on: Insufficient Energy Intake Nutrition Diagnosis: Problem: Suboptimal oral intake Related to: Inability to consume sufficient nutrients As evidenced by: Anorexia, Patient/family self-report, Medical condition, Procedure/surgery, Intake records, Nausea, Pain, Food/nutrition related history, Imaging studies Estimated kilocalorie needs: 1256-9696 Calorie Calculation Method: 15-20 kcals/kg Estimated protein needs (grams): 85-102 Grams protein determined by: 1.0 - 1.2 g/kg Care Plan: Continue current diet Supplements: Ensure Max Vitamins and Minerals: Vitamin D, Zinc (Need for increase in Vitamin D - vit D level 29 and zinc 51 - Pt taking her bariatric vitamins at home) Medications: Appetite stimulants, Pro-motility agents, Anti-emetics Monitor and Evaluation: Meet greater than 75% of estimated needs, Monitor fluid/electrolyte balance, Monitor labs, I/Os, vital signs, weight, Monitor bowel function HPI: per note 11/12 Pallavi Harris MD 32 year old female with PMH of IBS, generalized anxiety disorder, hypothyroidism and past surgical history of cholecystectomy, appendectomy, Tan-en-Y bariatric surgery in 01/2022 s/p lap assisted ERCP Intake History: Nutrition Intake Prior to Admission: Less than 75% estimated energy needs greater than or equal to 5 days Current Nutrition Intake: Less than 50% estimated energy needs (x 1 day) Current Intake Over time: (x 1 day) Pt with poor po intakes Supplements to be provided and discussed recent labs of Low vitamin D and ZInc - MD aware and Vitamin D to be increased Takes her mvi and minerals at home Diet Orders (From admission, onward) Start Ordered 11/11/222029 DIET GASTRO INTESTINAL START NOW Question: Gastro Intestinal Answer: FIBER CONTROLLED 11/11/222021 Anthropometrics: Height: 167.6 cm (5' 6 ) Weight: 85.8 kg (189 lb 3.2 oz) Dosing Weight: 85 kg (187 lb 6.3 oz) Usual Weight: 81.6 kg (180 lb) 10/18/22 Usual Weight Obtained From: Patient Body mass index is 30.54 kg/m?. Weight change percentage over time: Pt now at 180# and goal to lose 20# more - Pt sees RD for outpatient follow up - Pt had Bariatric surgery 2021 Physical Exam: Subcutaneous fat loss: No fat loss Muscle loss: No muscle loss Potential micronutrient deficiency: No deficiency identified Edema/Ascites: No edema GI Symptoms: Anorexia, Nausea Functional Status: Unable to assess Potential Signs of Inflammation: Acute post-operative, Chronic condition, Imaging studies IBS, generalized anxiety disorder, hypothyroidism and past surgical history of cholecystectomy, appendectomy, Tan-en-Y bariatric surgery MNT Billing: $ Initial Assessment: 1-15 minutes SIGNATURE: Tomasa Franklin RD PATIENT NAME: Abbey Garcia DATE: November 12, 2022 TIME: 2:38 PM [facility] ANES POSTPROC EVALon 023 ANES POSTPROC EVAL HNO ID: [id number] Author: Earnest Garcia DO Service: Anesthesiology Author Type: Anesthesiologist Type: Anesthesia Postprocedure Evaluation Filed: 11/11/2022 6:51 PM Note Text: POST ANESTHESIA EVALUATION NOTE : 1990 Procedure Summary Date: 11/11/22 Room / Location: [facility]04 / [facility] Anesthesia Start: 1508 Anesthesia Stop: 175 Procedures: LAPAROSCOPY DIAGNOSTIC (Abdomen) ERCP WITH SPHINCTEROTOMY Diagnosis: Sphincter of Oddi dysfunction RUQ pain (Sphincter of Oddi dysfunction [K83.4]) (RUQ pain [R10.11]) Surgeons: Deacon Kat MD; Liat Santiago MD Responsible Provider: Earnest Garcia DO Anesthesia Type: general ASA Status: 3 Anesthesia Type: general Airway Type: ETT Last Vitals Vitals Value Taken Time BP 127/72 11/11/22 1845 Temp 36.5 ?C (97.7 ?F) 11/11/22 1751 Pulse 79 11/11/22 1851 Resp 13 11/11/22 1851 SpO2 100 % 11/11/22 1851 Vitals shown include unvalidated device data. Post Anesthesia Patient Status Patient Evaluation: PACU. PACU/ICU Patient Condition: stable. Anticipated Disposition: inpatient floor planned admission. Neurological Status: aware and responsive. Pulmonary Status: breathing comfortably on supplemental oxygen Airway Control: returned to baseline unsupported. Cardiovascular Status: stable. Pain Management: clinically adequate - multimodal analgesia pain management approach Postoperative Hydration: acceptable. Intraoperative Events: no significant anesthesia events Post Operative Nausea/Vomiting Status: no significant post operative nausea or vomiting Recommendation: continue current plan of care. Anesthesia Observations No Documentation SIGNATURE: Earnest Garcia DO PATIENT NAME: Abbey Garcia DATE: November 11, 2022 TIME: 6:51 PM CSN: [id number] [facility] ANES PRE-OPon 11-11-2022 ANES PRE-OP HNO ID: [id number] Author: Natalie Blanco MD Service: ? Author Type: Physician Type: Anesthesia Preprocedure Evaluation Filed: 11/11/2022 1:21 PM Note Text: ANESTHESIOLOGY DAY OF SURGERY NOTE : 1990 Procedure Information Date/Time: 11/11/22 1345 Procedures: LAPAROSCOPY DIAGNOSTIC (Abdomen) ERCP WITH SPHINCTEROTOMY - with Endo staff Location: OR / OR Surgeons: Deacon Kat MD; Liat Santiago MD Estimated body mass index is 30.39 kg/m? as calculated from the following: Height as of 11/05/22: 167.6 cm (5' 6 ). Weight as of 11/05/22: 85.4 kg (188 lb 4.4 oz). Most recent hematocrit and potassium results: Hematocrit 34.5 11/06/2022 Hematocrit (POCT) 36 02/03/2020 Potassium 3.9 11/06/2022 Potassium (POCT) 3.6 02/03/2020 RICHAR on CPAP Asthma -- well controlled GERD -- well controlled Difficult IV access Relevant Problems ANESTHESIA (+) RICHAR on CPAP (+) PONV (postoperative nausea and vomiting) CARDIO (+) Benign essential HTN ENDO (+) Acquired hypothyroidism (+) Hypothyroid GI (+) GERD (gastroesophageal reflux disease) (+) Gastric ulcer (+) Peptic ulcer disease -RENAL (+) Renal stone NEURO-PSYCH (+) History of PCOS (+) History of sleep apnea PULMONARY (+) Asthma (+) RICHAR on CPAP I - PHYSICAL EVALUATION AIRWAY Patient intubated: No. Tracheostomy tube not present Mallampati: III. TM distance: >3 FB. Neck ROM: full ROM without neurological symptoms. Mouth opening: adequate. Short neck: no. Thick neck: no DENTAL Dental findings: teeth intact. II - ANESTHESIA PLAN ASA Score: 3 Anesthetic Plan: general Airway type: ETT The patient is not a current smoker. NPO Status: adequate Beta Blanka Monitoring Plan Monitoring plan: standard ASA. Post Procedure Analgesic Plan Postoperative analgesic plan: multimodal analgesia. Informed Consent Anesthetic risks, benefits, alternatives, personnel and consent discussed: yes. Patient / Responsible Alliance Party agrees to proceed: yes Patient / Surrogate agrees to blood products: Yes DNR status not reviewed with patient and/or family prior to surgery. Potential Anesthesia issues that may suggest increased risk of complications or contraindication to planned procedure: none. Vitals Value Taken Time BP 124/77 11/11/22 1252 Pulse 76 11/11/22 1252 Resp 20 11/11/22 1252 Temp 36.4 ?C (97.5 ?F) 11/11/22 1252 SpO2 99 % 11/11/22 1252 Facility-Administered Medications as of 11/11/2022 Medication Dose Route Frequency - lidocaine (PF) 10 mg/mL (1 %) 1-2 mg injection (XYLOCAINE) 0.1-0.2 mL INTRADERMAL PRN - lactated ringers iv infusion 5-30 mL/hr INTRAVENOUS CONTINUOUS - NaCl 0.9% iv flush bag 20 mL INTRAVENOUS PRN - heparin 5,000 Units injection 5,000 Units SUBCUTANEOUS ONCE - ceFAZolin iv piggyback 2 g in D5W (iso-osmotic) 100 mL (ANCEF) 2 g INTRAVENOUS Pre-Op Once - pantoprazole DR 40 mg tab(s) (PROTONIX) 40 mg ORAL Pre-Op Once - acetaminophen 1,000 mg tab(s) (TYLENOL) 1,000 mg ORAL Pre-Op Once - lactated ringers iv infusion 30 mL/hr INTRAVENOUS CONTINUOUS - lidocaine (PF) 10 mg/mL (1 %) 1-2 mg injection (XYLOCAINE) 0.1-0.2 mL INTRADERMAL ONCE - [COMPLETED] ondansetron 4 mg tab(s) (ZOFRAN) 4 mg ORAL ONCE - [] lactated ringers iv infusion 75 mL/hr INTRAVENOUS CONTINUOUS - [COMPLETED] scopolamine 1 mg over 3 days 1 Patch (TRANSDERM-SCOP) 1 Patch TRANSDERMAL ONCE And - [] scopolamine - REMOVE PATCH OTHER ONCE And - [] scopolamine - VERIFY patch OTHER q 8 H - [COMPLETED] traMADol 50 mg tab(s) (ULTRAM) 50 mg ORAL ONCE Outpatient Medications as of 11/11/2022 Medication Sig - NIFEdipine XL (ADALAT CC) 30 mg 24 hr tablet Take 1 tablet by mouth once daily. - traMADol (ULTRAM) 50 mg tablet Take 1 tablet by mouth every 6 hours as needed for pain for up to 3 days. I have interviewed and examined the patient. I have reviewed the medical record and/or the pre-anesthesia evaluation, pertinent labs, and test results. This contains updated information obtained within 48 hours of Surgery/Procedure. SIGNATURE: Natalie Blanco MD PATIENT NAME: Abbey Garcia DATE: November 11, 2022 TIME: 1:19 PM CSN: [id number] [facility] BRIEF OP NOTon 11-11-2022 BRIEF OP NOT HNO ID: [id number] Author: Deacon Kat MD Service: General Surgery Author Type: Physician Type: Brief Op Note Filed: 11/11/2022 5:49 PM Note Text: GENERAL SURGERY BRIEF OP NOTE LOG ID: [id number] Surgery/Procedure Date: 11/11/2022 Incision/Procedure Start Time: 3:48 PM Incision Close/Procedure End Time: 5:45 PM Surgeon(s) and Enrollment Representative(s): Surgeon(s) and Role: Panel 1: * Deacon Kat MD - Primary * Deacon Hummel MD - Resident - Assisting Panel 2: * Liat Santiago MD - Primary No Additional Staff Procedure(s): Laparoscopic-assisted ERCP Closure of JJ-mesenteric defect Wedge gastrectomy Anesthesia: Choice - Anesthesia Consult Findings: ERCP performed by GI (Pamela) gastrotomy, mesenteric defect at JJ-closed with silk; gastrotomies closed via wedge gastrectomy; please see operative report for full details Tubes/Drains: None Estimated Blood Loss: 30 cc Specimens: * No specimens in log * Implant: * No implants in log * Wound Classification: Class 3, operative wound contaminated with gross spillage from the gastrointestinal tract and entrance into the biliary tract Complications: None Pre-Op/Pre-Procedure Diagnosis: Pre-Op Diagnosis Codes: * Sphincter of Oddi dysfunction [K83.4] * RUQ pain [R10.11] Post-Op/Post-Procedure Diagnosis: Same SIGNATURE: Deacon Hummel MD PATIENT NAME: Abbey Garcia DATE: November 11, 2022 TIME: 5:46 PM PAGER/CONTACT #: [phone] [id number] Deacon Kat MD Normal [facility] ERCPon 11-11-2022 ERCP [facility] Gastrointestinal Endoscopy Patient Name: Abbey Garcia Procedure Date: 11/11/2022 4:31 PM Date of : 1990 Admit Type: Inpatient Age: 32 Room: [facility] OR-Travel Gender: Female Note Status: Hospital Cleaning Specialist Override Attending MD: Liat Santiago MD Procedure: ERCP Indications: Bile duct stricture Providers: Liat Santiago MD, Marsha Hope RN (Assisting Nurse) Referring Physician: Medicines: General Anesthesia Complications: No immediate complications. Procedure: Pre-Anesthesia Assessment: - ASA Grade Assessment: I - A normal, healthy patient. After obtaining informed consent, the scope was passed under direct vision. Throughout the procedure, the patient's blood pressure, pulse, and oxygen saturations were monitored continuously. The Duodenoscope was introduced through the mouth, and advanced to the duodenum and used to inject contrast into the bile duct. The Endoscope was introduced through the mouth, and advanced to the duodenum and used to inject contrast into the bile duct. The ERCP was accomplished without difficulty. The patient tolerated the procedure well. Moderate Sedation: Gen Anesthesia Total Procedure Duration: 0 hours 16 minutes 55 seconds Findings: The major papilla was normal. The bile duct was deeply cannulated with the short-nosed traction sphincterotome and guidewire. Contrast was injected. I personally interpreted the bile duct images. There was brisk flow of contrast through the ducts. Image quality was excellent. Contrast extended to the main bile duct. Contrast extended to the bifurcation. Contrast extended to the hepatic ducts. The biliary orifice was stenotic. This appeared benign. A 5 mm biliary sphincterotomy was made with a monofilament traction (standard) sphincterotome using ERBE electrocautery. There was no post-sphincterotomy bleeding. To discover objects, the biliary tree was swept with an 11.5 mm balloon starting at the bifurcation. Nothing was found. Impression: - The major papilla appeared normal. - Biliary papillary stenosis, benign. - A biliary sphincterotomy was performed. - The biliary tree was swept and nothing was found. Recommendation: - Patient has a contact number available for emergencies. The signs and symptoms of potential delayed complications were discussed with the patient. Return to normal activities tomorrow. Written discharge instructions were provided to the patient. - Resume previous diet. - Continue present medications. Procedure Code(s): --- Professional --- 25643 35340 Diagnosis Code(s): --- Professional --- K83.1 CPT copyright 2020 [employer]. All rights reserved. The codes documented in this report are preliminary and upon certified professional coder review may be revised to meet current compliance requirements. Attending Participation: I personally performed the entire procedure. Scope In: 4:46:30 PM Scope Out: 5:03:25 PM MD Liat Carter MD 11/11/2022 5:07:46 PM This report has been signed electronically by Liat Santiago MD Number of Addenda: 0 Note Initiated On: 11/11/2022 4:31 PM Estimated Blood Loss: Estimated blood loss: none. Normal [facility] NURSING PROGon 11-11-2022 NURSING PROG HNO ID: [id number] Author: Summer Bowen RN Service: ? Author Type: Registered Nurse Type: Nursing Progress Note Filed: 11/11/2022 8:23 PM Note Text: Transfer Note: PATIENT NAME: Abbey Garcia Patient Location: [place] [address]/[id number] Room: [place] [address] Patient transferred into room/unit PK321 in stable condition. Actions taken: No futher actions taken at this time. Will continue to monitor and check with patient. Normal [facility] OPERATIVE NOon 11-11-2022 OPERATIVE NO HNO ID: [id number] Author: Deacon Kat MD Service: General Surgery Author Type: Physician Type: Operative Report Filed: 11/12/2022 8:00 AM Note Text: [facility] - Operative Report ABBEY GARCIA : 1990 AGE: 32. SEX: F PATIENT TYPE: I HOSP SVC: Surgical LOCATION: [facility] ATTENDING PHYSICIAN: Deacon Kat M.D. CSN NUMBER: [id number] DATE OF SURGERY/PROCEDURE: 11/11/2022 INCISION/PROCEDURE START TIME: 3:48 PM INCISION CLOSE/PROCEDURE END TIME: 5:45 PM PREOPERATIVE DIAGNOSIS: 1. Sphincter of Oddi dysfunction. 2. History of bypass gastrojejunostomy. POSTOPERATIVE DIAGNOSIS: 1. Sphincter of Oddi dysfunction. 2. History of bypass gastrojejunostomy. SURGEON: Deacon Kat M.D. ANCILLARY SERVICES MANAGER THERAPY: Daecon Hummel M.D. SURGERY/PROCEDURE: 1. Laparoscopic gastric exploration (to facilitate ERCP with sphincterotomy). 2. Diagnostic laparoscopy with closure of jejunojejunostomy defect. ANESTHESIA: General OPERATIVE INDICATIONS: This 32-year-old woman with a history of cholecystectomy and history of bypass gastrojejunostomy, presented with right upper quadrant symptoms postprandially that were identical to her symptoms prior to her cholecystectomy many years ago. Right upper quadrant ultrasound showed a mildly dilated common bile duct and HIDA scan was consistent with sphincter of Oddi dysfunction. The operative plan was for a laparoscopic gastrotomy for exploring the stomach, providing accessed for the duodenoscope. OPERATIVE FINDINGS: She had an open jejunojejunal mesenteric defect without any bowel herniated through it. This was closed with silk suture. Her Tan limb and transverse mesocolic defect was not open. Successful gastric access was obtained and Dr. Santiago of Gastroenterology was able to perform an endoscopic sphincterotomy via this access. DESCRIPTION OF PROCEDURE: The patient was positioned supine with her arms out. Her abdomen was prepped and draped. Her abdomen was insufflated with a Veress needle in the left subcostal space. The abdomen was entered with a 5 mm laparoscope with a 5 mm optical trocar in the supraumbilical space. There was no trauma from the Veress needle and it was removed. After pre-injection with local anesthesia, additional 5 mm ports were placed in the right upper quadrant, right mid abdomen. The initial entry port was changed out for a 12 mm port and the 5 mm port was placed in the left abdomen. The Tan limb was traced downwards and the pseudo-Gama space was inspected. Then the jejunojejunal space was inspected and since it was open, it was closed with a 3-0 silk suture in a running fashion. The prior gastric antrum remnant was inspected and adhesions were mobilized off the staple line. Two stay sutures were placed along the staple line of the gastric remnant and these were grasped percutaneously and brought up to the anterior abdominal wall. The ideal location for the gastric access was then obtained with a 15 mm VersaStep port first inserting the sheath in the stomach transfacially and then the 15 mm port. The laparoscope was then advanced through the 15 mm port into the stomach showing normal mucosa, a small amount of blood from the port entry without mucosal injury, and excellent trajectory directly toward the pylorus from the site of entry. The laparoscopic bowel clamp was then placed across the biliopancreatic limb. I created a new sterile field on top of the prior sterile field and the case was turned over to Dr. Santiago of Gastroenterology. He successfully performed an endoscopic biliary sphincterotomy, which is documented separately by him. Once he had completed this procedure, I removed the new extra sterile field. The bowel clamp was removed. The 15 mm port was withdrawn from the gastrotomy. The gastrotomy was closed with two 60 mm firings of reinforced purple staple loads. Inspection was made for hemostasis, which was complete. The 15 mm port was removed. That operative site was irrigated. The fascia was closed with a 0 Vicryl suture. Final inspection was made. The abdomen was desufflated. The remaining ports were removed. The skin was injected with local anesthesia. The skin was closed with 4-0 Monocryl, except the 15 mm port site which was packed. Dressing of Exofin was applied. DRAINS: None. COMPLICATIONS: None. SPECIMEN: None. ESTIMATED BLOOD LOSS: 30 mL. ATTESTATION: I performed the procedure with assistance. Deacon Kat M.D. G:[id number] /[id number] [facility] PT EDon 11-11-2022 PT ED HNO ID: [id number] Author: Doris Chowdhury, RN Service: Nursing Author Type: Registered Nurse Type: Patient Education Filed: 11/11/2022 1:01 PM Note Text: PATIENT EDUCATION TOPIC: PROCEDURE / SURGERY: Pre-op Teaching: Surgical Safety Principles PATIENT NAME: Abbey Garcia PATIENT LOCATION: [facility] OR POOL/[facility] OR POOL READINESS TO LEARN COGNITIVE ABILITY: Alert and oriented MOTIVATION TO LEARN: Eager FAMILY SUPPORT: None - Unavailable/disinteres darvin INSTRUCTION PROVIDED TO: Patient PATIENT LEARNS BEST BY: Individual Instruction FACTORS AFFECTING LEARNING: None PHYSICAL LIMITATIONS AFFECTING LEARNING: None LEARNING RESPONSE DIAGNOSIS: PATIENT/FAMILY RESPONSE: Verbalizes understanding of: PRE-OPERATIVE INSTRUCTIONS-Correct action to take to follow pre-operative instructions Information received as demonstrated by interest and questions METHOD OF INSTRUCTION: Verbal instruction FOLLOW-UP PLAN: Complete - No need for follow-up INSTRUCTIONAL AIDS USED: NA SUPPLEMENTAL MATERIAL PROVIDED TO PATIENT: None REFERRAL (RECOMMENDATION): None Electronically Signed By: Doris Chowdhury [facility] TYPE + SCREENon 11-11-2022 ABO O [facility] Comment on above: Order Comment: Geraldo marrero Type: BLOOD SPECIMENOrdering Facility: [facility] Address: [address] [phone] Performed By: #### T SCR ####[facility]ANKCL[facility] [id number] [address] HISTORICAL AB SCR STATUS Negative [facility] Comment on above: Order Comment: Speci men Type: BLOOD SPECIMENOrdering Facility: [facility] Address: [address] [address] Performed By: #### T SCR ####[facility] BANKCLIA [id number] [place] [id number] [facility] Rh Nom (Bld) Positive Normal [facility] Comment on above: Order Comment: Speci men Type: BLOOD SPECIMENOrdering Facility: [facility] Address: [address] Performed By: #### T SCR ####[facility] BANKCLIA [id number] [place] [id number] [facility] TYPE AND SCREEN EXPIRATION 11/14/2022 23:59 Normal [facility] Comment on above: Order Comment: Speci men Type: BLOOD SPECIMENOrdering Facility: [facility] Address: [address] [place] [place] [address] Performed By: #### T SCR ####[facility] [facility] BANKCLIA [id number] [place] [id number] [facility] XR ERCP READ ONLYon 11-12-19 XR ERCP READ ONLY * * *Final Report* * * DATE OF EXAM: Nov 11 2022 5:00PM FVO [id number] - XR ERCP READ ONLY / PROCEDURE REASON: abd pain- intra op ercp * * * * Physician Interpretation * * * * XR ERCP READ ONLY PROVIDED HISTORY: abd pain- intra op ercp COMPARISON: No previous similar exams are available for comparison TECHNIQUE: Fluoroscopic Radiation Summary: Plane A, Air Kerma: 16.1 mGy Dose Area Product (DAP): Fluoro time: 1:42 min:sec RESULT: 7 spot images were obtained of the abdomen. Images demonstrate cannulation of the common bile duct with retrograde administration contrast in the common bile duct. A balloon was inflated in the common bile duct. IMPRESSION: Fluoroscopic assistance for ERCP procedure Special Investigator: JUANCARLOS Transcribe Date/Time: Nov 12 2022 7:12A Dictated by : DEENA ALSTON MD This examination was interpreted and the report reviewed and electronically signed by: DEENA ALSTON MD on Nov 12 2022 7:13AM EST [id number] Normal [facility] CNCOon 11-10-2022 CNCO Letter Text Normal [facility] CNPNon 11-10-2022 CNPN Normal [facility] CNPNon 11-09-2022 CNPN Normal [facility] Population Health 11-10-19 Population Health Case Information Case Priority: None Programs: -- Referral Source: [facility] [place]ker Referral Reason: Care coordination Case Type: Transition Care Management Risk Score: -- Case Status: Enrolled (October 29, 2022) Date Assigned: October 29, 2022 Assigned By: Raegan Felder Date Enrolled: October 29, 2022 Assigned Primary Personnel: Raegan Felder Assigned Secondary Personnel: Araceli PRICE, Gita Das Physician: Jaquan Paula Problems Ongoing Abnormal thyroid blood test Arthritis Asthma BMI 30.0-30.9,adult Depression Gall stone Hyperthyroidism Kidney cysts Kidney stone LUQ pain Mixed incontinence urge and stress Nausea Rash of body Renal cyst Right flank pain Historical Allergic rhinitis Anemia Hypothyroidism Metabolic syndrome PCOS- polycystic ovary syndrome Procedure/Surgical History Esophagogastroduodenos copy, flexible, transoral; diagnostic, including collection of specimen(s) by brushing or washing, when performed (separate procedure) (10/27/2022), Revision (01/29/2022), Gastric sleeve (02/15/2021), Esophagogastroduodenos copy (01/20/2021), Hysterectomy (11/04/2020), Appendectomy, Cholecystectomy, Colonoscopy. Home Medications busPIRone 10 mg Tab, 10 mg= 1 tab(s), Oral, BID Carafate 1 g/10 mL Susp-Oral, 1 gm= 10 mL, Oral, QID escitalopram 20 mg Tab, 20 mg= 1 tab(s), Oral, Daily levothyroxine 100 mcg (0.1 mg) Tab, 100 mcg= 1 tab(s), Oral, Daily, 1 refills liothyronine 5 mcg Tab, 5 mcg, Oral, Daily, 1 refills mirtazapine 15 mg Tab, 15 mg= 1 tab(s), Oral, Once a day (at bedtime) predniSONE 20 mg Tab, See Instructions promethazine 25 mg Tab, 25 mg= 1 tab(s), Oral, TID Topamax 100 mg Tab, Oral, BID Zofran 4 mg Tab, 4 mg= 1 tab(s), Oral, q6hr, PRN Allergies NSAIDs (Unknown) codeine (unknown) Social History Alcohol - Denies Alcohol Use, 12/20/2020 Substance Abuse - Denies Substance Abuse, 12/20/2020 Tobacco - Denies Tobacco Use, 12/20/2020 Never (less than 100 in lifetime) Tobacco Use:. Never Smokeless Tobacco Use:. Ready to change: No. Household tobacco concerns: No., 11/03/2022 Family History Alcoholism: Brother. Asthma: Brother. Diabetes clinic: Father. Diabetes mellitus type 2: Mother. High cholesterol: Mother. Hypertension: Mother, Father and Brother. Hypothyroidism: Father. Kidney stone: Brother. Mitral valve disorder: Negative: Father. Screenings and Assessments 10/29/22 10:40:00 Result Name Value Comment Phone Call Monitoring Consent Agreed to continue call Phone Verification Patient Information Full name, street address and date of verified CM Program Enrollment Provides verbal consent for enrollment Goals and Interventions Care Plan Progress Note TCM#2- Patient states she is doing 'lolita rough.' States she is having sx tomorrow, 11/10 at [facility] for, she believes, Sphincter of Oddi Dysfunction. She thinks they may be placing a stent. Patient had a follow up appointment with her surgeon last week, 11/04, and was ordered IV nutrition. Upon getting home she she declined and headed to [facility] ER, she was admitted 11/05 and d/c 11/08. States she has been doing clear liquid diet today. Notes loose stools. Notes the best thing for her at this point is to do nothing and await sx. She states nothing has helped with nausea. States she remains weak and would like to get through tomorrow. Patient denies any further questions or concerns at this time. Communication Events Date: November 09, 2022 Method: Phone call Type: Inbound Duration (min): 5 Outcome: Case discussion Contact Type: Patient Contact Name: TIFF GARCIAHECTOR Flores Notes: TCM#2- Spoke with patient for TCM program call status update, see case summary note. Created By: Robin Dunn Date: November 09, 2022 Method: Phone call Type: Outbound Duration (min): 1 Outcome: Left message-voicemail Contact Type: care transition coordinator Contact Name: -- Notes: TCM#2- Attemtped to reach patient for TCM program call status update, left VM for return call. Created By: Robin Dunn Date: October 29, 2022 Method: Phone call Type: Outbound Duration (min): 11 Outcome: Case discussion Contact Type: care transition coordinator Contact Name: Raegan Felder Notes: TCM-#1. see FT summary Created By: Raegan Felder Date: October 29, 2022 Method: Phone call Type: Outbound Duration (min): 1 Outcome: Left message-voicemail Contact Type: care transition coordinator Contact Name: Raegan Felder Notes: TCM #1 Left message with instructions to call cack. Created By: Raegan Felder [facility] 11-08-2022 [facility] HNO ID: [id number] Author: Dina Pablo APRN.OBGYN HOSPITALIST PHYSICIAN Service: Hospital Medicine Author Type: Nurse Practitioner Type: Discharge Summary Filed: 11/08/2022 11:42 AM Note Text: Attestation signed by Xochilt Murillo MD at 11/08/2022 4:48 PM Seen by on 11/06/2022 Did not personally see the patient during this admission but discussed the case with BRE Agree with documentation provided by Ms. Jayrhys GI team has recommended following up with Dr. Kat to discuss plan of care moving forward, i.e. lap-assisted ERCP given h/o Ruex-en-Y if he feels appropriate Xochilt Murillo MD 11/08/2022 4:47 PM DISCHARGE SUMMARY PATIENT NAME: Abbey Garcia ADMISSION DATE: 11/05/2022 DISCHARGE DATE: 11/08/2022 ATTENDING PHYSICIAN: Xochilt Murillo MD Code Status: Not on file PCP: Jaquan Morrow Highest Readmission Risk Score: 12 The 30 day readmissions risk score is derived from an internally validated risk model which evaluates patient level characteristics, utilization history, medication orders and lab results up until the day of discharge. Patients with a score of 40 or above are considered highest risk for readmission. Specific patient level drivers will be listed at the bottom of the summary. TRANSITIONS OF CARE CRITICAL ISSUES: PAULA MEDICATION CHANGES: Stop remeron, start amitriptyline Start nifedipine PRN tramadol for breakthrough pain #10 tablets LAB MONITORING NEEDED: Not applicable IMAGING FOLLOW-UP: Not applicable LABS AND PROCEDURES PENDING AT DISCHARGE: No pending results. FOLLOW UP: PCP, General surgery 11/11 REASON FOR HOSPITALIZATION: abdominal pain PRINCIPAL DIAGNOSIS: Dysfunction of sphincter of Oddi SECONDARY DIAGNOSIS: Principal Problem: Dysfunction of sphincter of Oddi (POA: Yes) Active Problems: Nausea (POA: Yes) GERD (gastroesophageal reflux disease) (POA: Yes) Hypothyroid (POA: Yes) ARSALAN (generalized anxiety disorder) (POA: Yes) Moderate recurrent major depression (HCC) (POA: Yes) Right upper quadrant abdominal pain (POA: Yes) H/O gastric bypass (POA: Yes) Resolved Problems: * No resolved hospital problems. * HOSPITAL COURSE: Abbey Garcia is a 32 year old female with past medical history of IBS, generalized anxiety disorder, hypothyroidism and past surgical history of cholecystectomy, appendectomy, and Tan-en-Y bariatric surgery in January 2022 who presented to the ED with intractable right upper quadrant pain, nausea, and vomiting. GI consulted. Labs unremarkable. HIDA found to have Oddi sphincter dysfunction. Pain management was consulted and started on tramadol with improvement. Discussed discharge plan with patient and tentative surgery 11/11 for further evaluation with Dr. Kat. Educated on s/s of when to return. Stable for discharge. PCP follow up requested. Researched EBP-- to Remeron was switched to elavil and nifedipine added to help relax the sphincter of oddi. OPERATIONS/PROCEDURE DURING THIS HOSPITALIZATION: * No surgery found * CONSULTS DURING HOSPITALIZATION: Treatment Team: Attending Provider: Xochilt Murillo MD Primary Service: Ramona Stoddard APRN.BETH Primary Service: Dina Pablo APRN.BETH Orders Placed This Encounter Smoking Cessation Education Consult GI (PHYSICIAN CONSULT) CONSULT TO PAIN MANAGEMENT (AK,AV,EU,FV,STEPAN,MM,MR, SP) MU FOLLOW UP PROVIDER FOR SUMMARY OF CARE - MU MEASURE PATIENT CONDITION AT DISCHARGE: Stable ADVANCE CARE PLANNING DISCUSSION (if applicable): N/A DISCHARGE DISPOSITION: Home with Self Care Discharge Physical Exam: VITAL SIGNS: BP 119/79 Pulse 77 Temp 36.3 ?C (97.3 ?F) (Oral) Resp 14 Ht 167.6 cm (5' 6 ) Wt 85.4 kg (188 lb 4.4 oz) LMP 08/19/2020 SpO2 100% BMI 30.39 kg/m? GENERAL: Alert and oriented x 3, no acute distress, cooperative. SKIN: Skin color, texture, turgor normal. No rashes or lesions. HEENT: Normocephalic, atraumatic. EOMI, mucus membranes moist, tongue is pink and midline. NECK: No jugulovenous distention, no carotid bruits, carotid pulses normal, supple. LUNGS: Lungs clear to auscultation, good diaphragmatic excursion. CARDIAC: Normal S1 and S2; no rubs, murmurs, or gallops ABDOMEN: Abdomen soft, TTP RUQ without guarding, BS active EXTREMITIES: No deformities, edema, clubbing or skin discoloration. Good capillary refill. No ulcers. NEURO: A AND O x 3. Moves all extremities, no tremors, no gross motor deficit, normal speech. Sensation grossly intact. PULSES: 2+ radial, 2+ dorsalis pedis. WOUND/SURGICAL SITE CARE: None SUPPLIES OR EQUIPMENT: None DIET: Clear Liquid Diet: Includes tea, black coffee, juice, gelatin, and broth Full Liquid Diet: Includes clear liquids plus cream soup, puddings, and milk ACTIVITY AND EXERCISE: Resume pre-hosp (more content not included)... Normal [facility] Basic metabolic 2000 panelon 11-06-2022 Anion gap [Moles/Vol] 8 mmol/L Low 9-18 [facility] Comment on above: Order Comment: Speci men Type: BLOOD SPECIMENOrdering Facility: [facility] Address: [address] [address] Performed By: #### 2 4321-2 ####[facility] [id number] [place] [address] [place] Calcium [Mass/Vol] 8.6 mg/dL Normal 8.5-10.2 [facility] Comment on above: Order Comment: Speci men Type: BLOOD SPECIMENOrdering Facility: [facility] Address: [address] [address] Performed By: #### 2 4321-2 ####[facility] [id number] [place] [id number] [place] Chloride [Moles/Vol] 108 mmol/L High 97-105 [facility] Comment on above: Order Comment: Speci men Type: BLOOD SPECIMENOrdering Facility: [facility] Address: [address] [place] [address] Performed By: #### 2 4321-2 ####[facility] [id number] [place] [address] [place] CO2 [Moles/Vol] 24 mmol/L Normal 22-30 [facility] Comment on above: Order Comment: Speci men Type: BLOOD SPECIMENOrdering Facility: [facility] Address: [address] [address] Performed By: #### 2 4321-2 ####[facility] [id number] [place] [address] [place] Creatinine [Mass/Vol] 0.74 mg/dL Normal 0.58-0.96 [facility] Comment on above: Order Comment: Speci men Type: BLOOD SPECIMENOrdering Facility: [facility] Address: [address] [place] [address] Performed By: #### 2 4321-2 ####[facility] LABORATORYIA [id number] [place] [address] [place] Creatinine and Glomerular filtration rate.predicted panel (S/P/Bld) 110 mL/min/1.73m??? Normal >=60 [facility] Comment on above: Order Comment: Geraldo marrero Type: BLOOD SPECIMENOrdering Facility: [facility] Address: [address] [place] [address] Result Comment: Rashmi mated Glomerular Filtration Rate (eGFR) is calculated using the 2020 CKD-EPI creatinine equation. This equation utilizes serum creatinine, sex, and age as parameters. The creatinine assay has traceable calibration to isotope dilution-mass spectrometry. Refer to KDIGO guidelines for clinical interpretation. In patients with unstable renal function, e.g. those with acute kidney injury, the eGFR may not accurately reflect actual GFR. Performed By: #### 2 4321-2 ####[facility] LABORATORYCLIA [id number] [place] [address] [place] Glucose [Mass/Vol] 82 mg/dL Normal 74-99 [facility] Comment on above: Order Comment: Geraldo marrero Type: BLOOD SPECIMENOrdering Facility: [facility] Address: [address] [place] [address] Result Comment: The [place] [employer] (ADA) provides guidance for cutoff values for fasting glucose and random glucose. The ADA defines fasting as no caloric intake for at least 8 hours. Fasting plasma glucose results between 100 to 125 mg/dL indicate increased risk for diabetes (prediabetes). Fasting plasma glucose results greater than or equal to 126 mg/dL meet the criteria for diagnosis of diabetes. In the absence of unequivocal hyperglycemia, results should be confirmed by repeat testing. In a patient with classic symptoms of hyperglycemia or hyperglycemic crisis, random plasma glucose results greater than or equal to 200 mg/dL meet the criteria for diagnosis of diabetes. Reference: Standards of Medical Care in Diabetes 2016, [place] [employer]. Diabetes Care. 2016.39(Suppl 1). Performed By: #### 2 4321-2 ####[facility] LABORATORYCLIA [id number] [place] [address] [place] Potassium [Moles/Vol] 3.9 mmol/L Normal 3.7-5.1 [facility] Comment on above: Order Comment: Geraldo marrero Type: BLOOD SPECIMENOrdering Facility: [facility] Address: [address] [id number] Performed By: #### 2 4321-2 ####[facility] LABORATORYCLIA [id number] [place] [address] [facility] Sodium [Moles/Vol] 140 mmol/L Normal 136-144 [facility] ospital Comment on above: Order Comment: Speci men Type: BLOOD SPECIMENOrdering Facility: [facility] Address: [address] [place] [address] Performed By: #### 2 4321-2 ####[facility] LABORATORYCLIA [id number] [place] [address] [place] Urea nitrogen [Mass/Vol] 8 mg/dL Normal 7-21 [facility] Comment on above: Order Comment: Speci men Type: BLOOD SPECIMENOrdering Facility: [facility] Address: [address] [place] [address] Performed By: #### 2 4321-2 ####[facility] LABORATORYCLIA [id number] [place] [address] [place] CASE MGT INIT ASSESon 2022 CASE MGT INIT ASSES HNO ID: [id number] Author: Alina Cueva, RN Service: ? Author Type: Registered Nurse Type: Care Mgt Initial Assessment Filed: 11/06/2022 9:29 AM Note Text: CARE MANAGEMENT: ASSESSMENT AND DISCHARGE PLAN SERVICE DATE: November 06, 2022 SERVICE TIME: 9:20 am PCP: Jaquan Morrow Primary Contact: Extended Emergency Contact Information Primary Emergency Contact: Melisa Garcia Address: [address] OF [facility] Mobile Relation: Spouse Admission Status: Observation Insurance Provider: MMO SUPERMED PPO Discharge Planning requested by: Per Department Practice Potential Transition Plans Advance Directives Current Advance Directive: Health Care Power of Supervisor Title In Chart: Yes Up To Date and Valid: Yes Current Living Arrangements and Support Lives with: Spouse/significant other Type of Residence: Private Residence (House) Does the patient have to climb stairs at home?: Yes Support: Spouse/significant other, Family members How do you manage to accomplish the following: Independent: Ambulation;Bathe/Showe r;Dress;Meals/Meal Prep;Medication Management;Going to the bathroom;Transportatio n to appointments/community Current Services/Equipment Current Post-Acute Service(s): None Discharge Planning Patient Goal(s): Less pain, General wellness, Be able to go home Jackson of Choice Explained: Jackson of Choice Given: No Reason Not Given: No placements necessary Are you interested in bedside delivery of your medications? No Discharge Planning Participant(s): Patient Patient/Family Comments: I haven't been able to eat or drink Caregiver Assessment: Caregiver is ready, willing and able to meet the patient's needs as recommended by the inter-professional team: No Caregiver needed Transport at Discharge: Transportation Arrangements: Car Destination: home Needs Prior to Discharge: Needs Prior to Discharge: None Post-Acute Discharge Plan: Introduced self to pt and explained CM role. Pt readmitted with abdominal pain and inability to eat or drink. 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 She would like a return to work note at time of discharge otherwise she denies any home going needs. Family will provide transportation home. SIGNATURE: Alina Cueva RN PATIENT NAME: Abbey Garcia DATE: November 06, 2022 TIME: 9:27 AM CONTACT #: [phone] Normal [facility] CBC panel Auto (Bld)on 11-06 Erythrocyte distribution width (RBC) [Ratio] 13.3 % Normal 11.5-15.0 [facility] Comment on above: Order Comment: Geraldo marrero Type: BLOOD SPECIMENOrdering Facility: [facility] Address: [address] [place] [address] Performed By: #### 5 8410-2 ####[facility] LABORATORYCLIA [id number] [place] [address] [place] Hematocrit (Bld) [Volume fraction] 34.5 % Low 36.0-46.0 [facility] Comment on above: Order Comment: Geraldo marrero Type: BLOOD SPECIMENOrdering Facility: [facility] Address: [address] Performed By: #### 5 8410-2 ####[facility] [id number] [place] [address] [place] Hemoglobin (Bld) [Mass/Vol] 11.4 g/dL Low 11.5-15.5 [facility] Comment on above: Order Comment: Speci men Type: BLOOD SPECIMENOrdering Facility: [facility] Address: [address] [address] Performed By: #### 5 8410-2 ####[facility]ENTERIA [id number] [place] [address] [place] MCH (RBC) [Entitic mass] 30.8 pg Normal 26.0-34.0 [facility] Comment on above: Order Comment: Speci men Type: BLOOD SPECIMENOrdering Facility: [facility] Address: [address] [address] Performed By: #### 5 8410-2 ####[facility]ENTERIA [id number] [address] [place] MCHC (RBC) [Mass/Vol] 33.0 g/dL Normal 30.5-36.0 [facility] Comment on above: Order Comment: Speci men Type: BLOOD SPECIMENOrdering Facility: [facility] Address: [address] [address] Performed By: #### 5 8410-2 ####[facility] [id number] [address] [place] MCV (RBC) [Entitic vol] 93.2 fL Normal 80.0-100.0 [facility] Comment on above: Order Comment: Speci men Type: BLOOD SPECIMENOrdering Facility: [facility] Address: [address] [place] [address] Performed By: #### 5 8410-2 ####[facility]ENTERIA [id number] [place] [address] [place] Nucleated RBC (Bld) [#/Vol] 10*3/uL Normal <0.01 [facility] Comment on above: Order Comment: Speci men Type: BLOOD SPECIMENOrdering Facility: [facility] Address: [address] Performed By: #### 5 8410-2 ####[facility] LABORATORYCLIA [id number] [place] [address] [place] Platelet mean volume (Bld) [Entitic vol] 11.3 fL Normal 9.0-12.7 [facility] Comment on above: Order Comment: Speci men Type: BLOOD SPECIMENOrdering Facility: [facility] Address: [address] Performed By: #### 5 8410-2 ####[facility]ENTERIA [id number] [place] [address] [place] Platelets (Bld) [#/Vol] 225 10*3/uL Normal 150-400 [facility] Comment on above: Order Comment: Speci men Type: BLOOD SPECIMENOrdering Facility: [facility] Address: [address] Performed By: #### 5 8410-2 ####[facility]ENTERIA [id number] [place] [address] [place] RBC (Bld) [#/Vol] 3.70 10*6/uL Low 3.90-5.20 [facility] Comment on above: Order Comment: Speci men Type: BLOOD SPECIMENOrdering Facility: [facility] Address: [address] Performed By: #### 5 8410-2 ####[facility] LABORATORYIA [id number] [place] [address] [place] WBC (Bld) [#/Vol] 3.98 10*3/uL Normal 3.70-11.00 [facility] Comment on above: Order Comment: Speci men Type: BLOOD SPECIMENOrdering Facility: [facility] Address: [address] Performed By: #### 5 8410-2 ####[facility] LABORATORYCLIA [id number] [place] [address] [place] CNPNon 11-06-2022 CNPN Normal [facility] CONSULT PROGon 11-06-2022 CONSULT PROG HNO ID: [id number] Author: Lisa Wright APRN.OBGYN HOSPITALIST PHYSICIAN Service: Gastroenterology Author Type: Nurse Practitioner Type: Consult Progress Note Filed: 11/06/2022 12:55 PM Note Text: Brief GI consult note: HIDA scanned obtain this am showed: IMPRESSION: ABNORMAL STUDY, EVIDENCE OF SPHINCTER OF ODDI DYSFUNCTION. Patient requested food per primary team and diet was advanced. Advised for follow up with Dr. Kat to discuss plan of care moving forward, i.e. lap-assisted ERCP given h/o Ruex-en-Y if he deems appropriate. Will send staff message to notify him of the results. Patient suitable for discharge from GI standpoint today if tolerates diet. Case discussed with Dr. Hu. [facility] CONSULT PROG HNO ID: [id number] Author: Saad Gama PA-C Service: Pain Management Author Type: Physician Enrollment Representative Type: Consult Progress Note Filed: 11/09/2022 9:09 AM Note Text: Pain Management - Progress Note Name: Abbey Garcia Date: November 06, 2022 Time: 11:05 AM Attempted to see patient at time above -- patient off floor for HIDA scan. KVNG Landry PA-C November 06, 2022 11:07 AM [facility] [place] HEPATOBILI[facility] W EF AND/OR RXon 11-06-2022 [facility] EF AND/OR RX * * *Final Report* * * DATE OF EXAM: Nov 06 2022 11:57AM [facility]21 - [facility] EF AND/OR RX / PROCEDURE REASON: Nausea/vomiting * * * * Physician Interpretation * * * * SPHINCTER OF ODDI DYSFUNCTION TEST CLINICAL INDICATION: Persistent abdominal pain after cholecystectomy. TECHNIQUE: 1.71 ml Kinevac IV followed by 5.6 mCi Tc 99m Choletec IV. Imaging at 60 sec intervals. The patient's medications and allergies were reviewed in electronic medical record and reconciled to the proposed procedure/treatment. RESULTS: There is prompt uptake of tracer by the liver. Time to peak for hepatic tracer uptake is more than 10 minutes (1 point). Time of biliary visualization is less than 15 minutes (0 points). The biliary tree is not prominent (0 point). The small bowel is visualized between 15 to 30 minutes (1 point). The common bile duct emptied by less than 50 percent (1 point). The EIW-ui-Bzehn ratio: CBD60 > Liver60, but =Liver15 (2 points). Total Points: 6 (Normal: <4 points) IMPRESSION: ABNORMAL STUDY, EVIDENCE OF SPHINCTER OF ODDI DYSFUNCTION. Special Investigator: JUANCARLOS Transcribe Date/Time: Nov 06 2022 11:59A Dictated by : TATUM LUNA MD This examination was interpreted and the report reviewed and electronically signed by: TATUM LUNA MD on Nov 06 2022 12:04PM EST [id number] Normal [facility] NURSING PROGon 11-06-2022 NURSING PROG HNO ID: [id number] Author: Fern Ponce RN Service: ? Author Type: Registered Nurse Type: Nursing Progress Note Filed: 11/05/2022 11:44 PM Note Text: Assumed care of this pt at 2300 from Danielle Marcelo RN. Pt sleeping, no distress at bedside. Call light within reach. Normal [facility] CBC W Auto Differential pane l (Bld)on 11-05-2022 Basophils (Bld) [#/Vol] 0.03 10*3/uL Normal <0.11 [facility] Comment on above: Order Comment: Speci men Type: BLOOD SPECIMENOrdering Facility: [facility] Address: [address] [address] Performed By: #### 5 7021-8 ####[facility] LABORATORYCLIA [id number] [place] [address] [place] Basophils/100 WBC (Bld) 0.6 % Normal [facility] Comment on above: Order Comment: Speci men Type: BLOOD SPECIMENOrdering Facility: [facility] Address: [address] [address] Performed By: #### 5 7021-8 ####[facility] LABORATORYCLIA [id number] [facility] [place] Differential cell count method Nom (Bld) Auto Normal [facility] Comment on above: Order Comment: Speci men Type: BLOOD SPECIMENOrdering Facility: [facility] Address: [address] [address] Performed By: #### 5 7021-8 ####[facility] LABORATORYIA [id number] [place] [address] [place] Eosinophils (Bld) [#/Vol] 0.08 10*3/uL Normal <0.46 [facility] Comment on above: Order Comment: Speci men Type: BLOOD SPECIMENOrdering Facility: [facility] Address: [address] [address] Performed By: #### 5 7021-8 ####[facility] LABORATORYIA [id number] [address] [place] Eosinophils/100 WBC (Bld) 1.5 % Normal [facility] Comment on above: Order Comment: Speci men Type: BLOOD SPECIMENOrdering Facility: [facility] Address: [address] [place] [address] Performed By: #### 5 7021-8 ####[facility] LABORATORYIA [id number] [address] [place] Erythrocyte distribution width (RBC) [Ratio] 13.3 % Normal 11.5-15.0 [facility] Comment on above: Order Comment: Speci men Type: BLOOD SPECIMENOrdering Facility: [facility] Address: [address] [place] [address] Performed By: #### 5 7021-8 ####[facility] LABORATORYIA [id number] [address] [place] Hematocrit (Bld) [Volume fraction] 40.5 % Normal 36.0-46.0 [facility] Comment on above: Order Comment: Speci men Type: BLOOD SPECIMENOrdering Facility: [facility] Address: [address] [address] Performed By: #### 5 7021-8 ####[facility]IA [id number] [place] [address] [place] Hemoglobin (Bld) [Mass/Vol] 13.3 g/dL Normal 11.5-15.5 [facility] Comment on above: Order Comment: Speci men Type: BLOOD SPECIMENOrdering Facility: [facility] Address: [address] [address] Performed By: #### 5 7021-8 ####[facility] LABORATORYIA [id number] [place] [address] [place] Immature granulocytes (Bld) [#/Vol] 10*3/uL Normal <0.10 [facility] Comment on above: Order Comment: Speci men Type: BLOOD SPECIMENOrdering Facility: [facility] Address: [address] [address] Performed By: #### 5 7021-8 ####[facility] LABORATORYIA [id number] [place] [address] [place] Immature granulocytes/100 WBC (Bld) 0.4 % Normal [facility] Comment on above: Order Comment: Speci men Type: BLOOD SPECIMENOrdering Facility: [facility] Address: [address] [address] Performed By: #### 5 7021-8 ####[facility] LABORATORYIA [id number] [place] [address] [place] Lymphocytes (Bld) [#/Vol] 2.53 10*3/uL Normal 1.00-4.00 [facility] Comment on above: Order Comment: Speci men Type: BLOOD SPECIMENOrdering Facility: [facility] Address: [address] [address] Performed By: #### 5 7021-8 ####[facility] LABORATORYIA [id number] [place] [address] [place] Lymphocytes/100 WBC (Bld) 48.5 % Normal [facility] Comment on above: Order Comment: Speci men Type: BLOOD SPECIMENOrdering Facility: [facility] Address: [address] [address] Performed By: #### 5 7021-8 ####[facility] LABORATORYIA [id number] [address] [place] MCH (RBC) [Entitic mass] 30.4 pg Normal 26.0-34.0 [facility] Comment on above: Order Comment: Speci men Type: BLOOD SPECIMENOrdering Facility: [facility] Address: [address] [address] Performed By: #### 5 7021-8 ####[facility]ENTERIA [id number] [address] [place] MCHC (RBC) [Mass/Vol] 32.8 g/dL Normal 30.5-36.0 [facility] Comment on above: Order Comment: Speci men Type: BLOOD SPECIMENOrdering Facility: [facility] Address: [address] [address] Performed By: #### 5 7021-8 ####[facility] [id number] [address] [place] MCV (RBC) [Entitic vol] 92.7 fL Normal 80.0-100.0 [facility] Comment on above: Order Comment: Speci men Type: BLOOD SPECIMENOrdering Facility: [facility] Address: [address] Performed By: #### 5 7021-8 ####[facility]ENTERIA [id number] [address] [place] Monocytes (Bld) [#/Vol] 0.30 10*3/uL Normal <0.87 [facility] Comment on above: Order Comment: Speci men Type: BLOOD SPECIMENOrdering Facility: [facility] Address: [address] Performed By: #### 5 7021-8 ####[facility] LABORATORYIA [id number] [place] [address] [place] Monocytes/100 WBC (Bld) 5.7 % Normal [facility] Comment on above: Order Comment: Speci men Type: BLOOD SPECIMENOrdering Facility: [facility] Address: [address] [address] Performed By: #### 5 7021-8 ####[facility]ENTERIA [id number] [place] [address] [place] Neutrophils (Bld) [#/Vol] 2.26 10*3/uL Normal 1.45-7.50 [facility] Comment on above: Order Comment: Speci men Type: BLOOD SPECIMENOrdering Facility: [facility] Address: [address] [place] [address] Performed By: #### 5 7021-8 ####[facility]ENTERIA [id number] [place] [address] [place] Neutrophils/100 WBC (Bld) 43.3 % Normal [facility] Comment on above: Order Comment: Speci men Type: BLOOD SPECIMENOrdering Facility: [facility] Address: [address] [place] [address] Performed By: #### 5 7021-8 ####[facility]ENTERIA [id number] [place] [address] [place] Nucleated RBC (Bld) [#/Vol] 10*3/uL Normal <0.01 [facility] Comment on above: Order Comment: Speci men Type: BLOOD SPECIMENOrdering Facility: [facility] Address: [address] [place] [address] Performed By: #### 5 7021-8 ####[facility]ENTERIA [id number] [place] [address] [place] Nucleated RBC/100 WBC (Bld) [Ratio] 0.0 /100 WBC Normal [facility] Comment on above: Order Comment: Speci men Type: BLOOD SPECIMENOrdering Facility: [facility] Address: [address] Performed By: #### 5 7021-8 ####[facility] LABORATORYCLIA [id number] [place] [address] [place] Platelet mean volume (Bld) [Entitic vol] 11.4 fL Normal 9.0-12.7 [facility] Comment on above: Order Comment: Speci men Type: BLOOD SPECIMENOrdering Facility: [facility] Address: [address] Performed By: #### 5 7021-8 ####[facility]ENTERIA [id number] [place] [address] [place] Platelets (Bld) [#/Vol] 207 10*3/uL Normal 150-400 [facility] Comment on above: Order Comment: Speci men Type: BLOOD SPECIMENOrdering Facility: [facility] Address: [address] Performed By: #### 5 7021-8 ####[facility]ENTERIA [id number] [place] [address] [place] RBC (Bld) [#/Vol] 4.37 10*6/uL Normal 3.90-5.20 [facility] Comment on above: Order Comment: Speci men Type: BLOOD SPECIMENOrdering Facility: [facility] Address: [address] Performed By: #### 5 7021-8 ####[facility] LABORATORYCLIA [id number] [place] [address] [place] WBC (Bld) [#/Vol] 5.22 10*3/uL Normal 3.70-11.00 [facility] Comment on above: Order Comment: Speci men Type: BLOOD SPECIMENOrdering Facility: [facility] Address: [address] Performed By: #### 5 7021-8 ####[facility] LABORATORYCLIA [id number] [place] [address] [place] CNPNon 11-05-2022 CNPN Normal [facility] CONSULTon 11-05-2022 CONSULT HNO ID: [id number] Author: Saad Gama PA-C Service: Pain Management Author Type: Physician Enrollment Representative Type: Consults Filed: 11/05/2022 4:25 PM Note Text: PAIN MANAGEMENT CONSULT -- [facility] PATIENT NAME: Abbey Garcia DATE of SERVICE: November 05, 2022 TIME of SERVICE:3:21 PM ATTENDING PROVIDER: Steve Galo MD PAIN MANAGEMENT SUMMARY: Mrs. Garcia is a 32 year old female with recurrent right upper quadrant pain radiating to the right shoulder for the past 2 months. She complains of sharp, spasming pain in the RUQ, especially with eating acidic foods. Plan is as follows: No acute findings on imaging necessitating IV Dilaudid. Continued use of IV Dilaudid may exacerbate symptoms. D/C IV Dilaudid. Tramadol 50 mg PO q4h PRN moderate-severe pain. Will follow as inpatient. DIAGNOSES: Right upper quadrant abdominal pain. Active Hospital Problems Diagnosis Date Noted Right upper quadrant abdominal pain 01/31/2020 H/O gastric bypass 10/26/2022 ARSALAN (generalized anxiety disorder) 01/03/2020 Moderate recurrent major depression (HCC) 01/03/2020 GERD (gastroesophageal reflux disease) Hypothyroid Nausea 09/25/2019 CHIEF COMPLAINT: RUQ pain radiating to the right shoulder x 2 months. HPI: Abbey Garcia is a 32 year old year old female admitted on 11/05/2022 with RUQ pain. Consultation requested by Dr. Steve Galo for an opinion regarding RUQ pain. My final recommendations will be communicated back to the requesting provider by way of shared medical record. Mrs. Garcia reports the onset of this pain approximately 2 months ago. No particular inciting event is identified. She initially suspected that might of been a kidney stone. She describes a sharp, spasming pain in the right upper quadrant that radiates to the right shoulder. It is exacerbated with eating, especially acidic foods. She has tried stretching in the past to see if that would alleviate her symptoms without much success. No other particular aggravating or alleviating factors are identified. She reports that, at rest, her pain is approximately 5/10. It becomes 7-8/10 when exacerbated. Accompanying symptoms include nausea and vomiting that often accompany these exacerbations of pain. She has a history of her previous gastric bypass in January 2022 and reports a history of issues with alternating diarrhea and constipation. The patient's current inpatient analgesic regimen includes Tylenol 650 mg PO q6h PRN mild-moderate pain, Dilaudid 0.2 mg IV q4h PRN severe/breakthrough pain. OARRS Report was reviewed. The patient has received 28 controlled substance prescriptions from 17 different providers in the past 2 years. The patient's most recent prescription was dispensed on 10/23/22 (tramadol 50 mg, 30 tabs/15 days). Overdose Risk Score: 450. Current outpatient MME/day: 20 mg. PAST MEDICAL HISTORY: PAST MEDICAL HISTORY Diagnosis Date Anemia Takes Pro FE daily. Arthritis Asthma Class 1 obesity without serious comorbidity with body mass index (BMI) of 33.0 to 33.9 in adult 09/25/2019 Gastric ulcer 2013 GERD (gastroesophageal reflux disease) History of IBS Hypertension Hypothyroid RICHAR on CPAP wears mask every night PCOS (polycystic ovarian syndrome) PONV (postoperative nausea and vomiting) 01/29/2022 Ventral hernia without obstruction or gangrene PAST SURGICAL HISTORY: PAST SURGICAL HISTORY Procedure Laterality Date APPENDECTOMY 08/2019 ARTHROSCOPY, SHOULDER, SURGI Right 08/2022 SLAP REPAIR and Subacromial Decompression CHOLECYSTECTOMY COLONOSCOPY GEN ANES EGD F TOTAL ABDOMINAL HYSTERECTOMY PAST SURGICAL HISTORY OF Bilateral arthroscopic knee surgery- 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 Redness and itchy. Codeine GI Upset Nsaids (Non-Steroid* Contraindication-Medic al Surgical S/p RYGB CURRENT MEDICATIONS: Current Facility-Administered Medications: mirtazapine 15 mg (REMERON) sucralfate 1 g tab(s) (CARAFATE) metoclopramide HCl 5 mg (REGLAN) [START ON 11/06/2022] pantoprazole DR 40 mg tab(s) (PROTONIX) levothyroxine 100 mcg tab(s) (SYNTHROID) escitalopram oxalate 20 mg tab(s) (LEXAPRO) NaCl 0.9% iv flush bag lactated ringers iv infusion ondansetron 4 mg tab(s) (ZOFRAN) OR ondansetron (PF) 4 mg injection (ZOFRAN) acetaminophen 650 mg tab(s) (TYLENOL) HYDROmorphone 0.2 mg injection (DILAUDID) busPIRone 10 mg tab(s) (BUSPAR) [START ON 11/06/2022] liothyronine 5 mcg tab(s) (CYTOMEL) FAMILY HISTORY: FAMILY HISTORY Problem Relation Age of Onset Diabetes Mother Hypertension Mother Obesity Mother Hypertension Father Hypertension Brother Obesity Brother Hypertension Brother Obesi (more content not included)... [facility] CONSULT HNO ID: [id number] Author: Lisa Wright APRN.BETH Service: Gastroenterology Author Type: Nurse Practitioner Type: Consults Filed: 11/05/2022 4:00 PM Note Text: CONSULT: GI SERVICE SERVICE DATE: 11/05/2022 SERVICE TIME: 1:53 PM REASON FOR CONSULT: intractable RUQ pain, status post cholecystectomy and gastric bypass surgery REQUESTING PHYSICIAN: Dr. Galo PRIMARY CARE PHYSICIAN: Jaquan Ayala Ms. Garcia is a 32 year old female with h/o MDD, ARSALAN, PTSD, obesity s/p gastric bypass, GERD, PCOS, RICHAR, reports biceps tear s/p repair 08/25/22 who presents for ongoing right sided abdominal pain along with N/V. Admits she initially started to notice symptoms getting worse (predominately GERD) when she started taking oral pain meds post op. Saw ortho and started taking PPI which helped somewhat initially but no longer appears to help her. Last seen by our GI service 10 days ago and underwent EGD with small amount of residual food (? Hypomotility) found in stomach and was referred to bariatric surgery whom patient saw yesterday (see below). She was also treated for constipation last admission with colon flush which remains an issue for her despite taking miralax TID, senna at home. Previously on linzess, can no longer afford and not covered by insurance. Last BM was diarrhea this morning. Denies any black or bloody stools. Patient pain got worse and she could not keep any food or liquids down over the past 3 days and decided to come to the ED for further evaluation and management. She last tried to eat a piece of bread yesterday and states she was unable to tolerate.Her bariatric surgeon prescribed supplemental IVFs and she states she received 2L yesterday. Anytime she attempts po intake she says she feels RUQ pain and At ED no imaging was done due to multiple imaging already done in the past. Labs overall unremarkable except for mild hypokalemia of 3.5. Patient admitted for further evaluation and pain management. OV 11/04/22 Dr. Kat, bariatric surgery Abbey Garcia is a 32 year old female with RUQ pain INTERVAL HPI: Multiple ED visits for nausea, vomiting, back pain Admitted 10/25/2022-10/28/2022 for possible hypomotility . In my discussion with her she describes abdominal pain that is on the right-hand side only with a slight extension to the epigastrium. It is severe and spasmodic and is mostly occurring after she eats although there is some persistence when she is not eating. It has not been caused by or relieved by bowel function. It does radiate to the tip of her shoulder blade on the right-hand side. For the most part her bowel functions been normal over the last day she has had slightly looser bowel movements. She does feel dehydrated with decreased frequency of urination and severe fatigue from her nausea and vomiting. She had an upper endoscopy as described below which was normal as well as a CT abdomen pelvis which demonstrated some mild biliary dilation status post cholecystectomy. She has a remote cholecystectomy more than 5 years ago. On my personal review of her CT abdomen pelvis from oct 25 images her JJ anastomosis in the normal location I do not see any inflammation around the GJ or around the right upper quadrant there are clips and evidence of prior cholecystectomy and there is mild CBD dilation, not a typical postcholecystectomy. IMAGING UPDATE: 10/25/2022 CT ABD/PEL W IVCON IMPRESSION: No acute abdominal or pelvic process is identified. Multiple hepatic cysts. Subcentimeter, low-attenuation lesion seen within liver are too small to characterize but statistically relate to subcentimeter cysts. Evidence of prior gastric bypass surgery. No bowel obstruction. Moderate stool burden. Incidentally noted is a 3.4 cm left adnexal cyst RESULT: Liver: There are multiple hepatic cysts again seen. Additionally, there are subcentimeter, low-attenuation lesions again seen within the liver, which are too small to characterize but statistically relate to subcentimeter cysts. Biliary: The patient is status post cholecystectomy. Again seen is mild biliary dilation, likely related to the cholecystectomy. Spleen: No mass. No splenomegaly. Pancreas: There is no obvious focal discrete pancreatic mass or pancreatic ductal dilation. Adrenals: No mass. Kidneys: There is no hydronephrosis or perinephric fluid collection. GI tract: The patient is status post gastric bypass surgery. There are no dilated loops of bowel to suggest obstruction. Status post appendectomy. Moderate stool burden. Lymph nodes: There is no abdominal lymphadenopathy. Mesentery/Peritoneum: No abdominal ascites. Retroperitoneum: No mass. Vasculature: There is no abdominal aortic aneurysm. Pelvis: Urinary bladder is distended. Multiple phleboliths are seen within the pelvis. Patient is status post hysterectomy. There is an approximately 3.4 x 2.9 cm left adnexal (more content not included)... Normal [facility] Comprehensive metabolic 2000 panelon 11-05-2022 Albumin [Mass/Vol] 4.2 g/dL Normal 3.9-4.9 [facility] ospital Comment on above: Order Comment: Speci men Type: BLOOD SPECIMENOrdering Facility: [facility] Address: [address] [address] Performed By: #### 2 4323-8, 0-3 ####[facility] LABORATORYCLIA [id number] [place] [address] [place] ALP [Catalytic activity/Vol] 71 U/L Normal 34-123 [facility] Comment on above: Order Comment: Speci men Type: BLOOD SPECIMENOrdering Facility: [facility] Address: [address] [address] Performed By: #### 2 4323-8, 3040-3 ####[facility] LABORATORYCLIA [id number] [address] STATES OF [facility] ALT [Catalytic activity/Vol] 15 U/L Normal 7-38 [facility] Comment on above: Order Comment: Speci men Type: BLOOD SPECIMENOrdering Facility: [facility] Address: [address] [address] Performed By: #### 2 4323-8, 3039-3 ####[facility] LABORATORYCLIA [id number] [place] [address] [place] Anion gap [Moles/Vol] 12 mmol/L Normal 9-18 [facility] Comment on above: Order Comment: Speci men Type: BLOOD SPECIMENOrdering Facility: [facility] Address: [address] [place] [address] Performed By: #### 2 4323-8, 3039-3 ####[facility] LABORATORYCLIA [id number] [place] [address] [place] AST [Catalytic activity/Vol] 26 U/L Normal 13-35 [facility] Comment on above: Order Comment: Speci men Type: BLOOD SPECIMENOrdering Facility: [facility] Address: [address] [place] [address] Performed By: #### 2 4323-8, 3039-3 ####[facility]ENTER[facility] [id number] [place] [address] [place] Bilirubin [Mass/Vol] 0.4 mg/dL Normal 0.2-1.3 [facility] Comment on above: Order Comment: Speci men Type: BLOOD SPECIMENOrdering Facility: [facility] Address: [address] [place] [address] Performed By: #### 2 4323-8, 3039-3 ####[facility] LABORATORYCLIA [id number] [place] [address] [place] Calcium [Mass/Vol] 8.6 mg/dL Normal 8.5-10.2 [facility] Comment on above: Order Comment: Speci men Type: BLOOD SPECIMENOrdering Facility: [facility] Address: [address] [place] [address] Performed By: #### 2 4323-8, 3039-3 ####[facility] LABORATORYCLIA [id number] [place] [address] [place] Chloride [Moles/Vol] 107 mmol/L High 97-105 [facility] Comment on above: Order Comment: Speci men Type: BLOOD SPECIMENOrdering Facility: [facility] Address: [address] Performed By: #### 2 4323-8, 3039-3 ####[facility] LABORATORYCLIA [id number] [place] [address] [place] CO2 [Moles/Vol] 22 mmol/L Normal 22-30 [facility] Comment on above: Order Comment: Speci men Type: BLOOD SPECIMENOrdering Facility: [facility] Address: [address] Performed By: #### 2 [address], 3 ####[facility] LABORATORYIA [id number] [place] [address] [place] Creatinine [Mass/Vol] 0.87 mg/dL Normal 0.58-0.96 [facility] Comment on above: Order Comment: Speci men Type: BLOOD SPECIMENOrdering Facility: [facility] Address: [address] Performed By: #### 2 4323-8, 3 ####[facility] LABORATORYIA [id number] [place] [address] [place] [facility] Creatinine and Glomerular filtration rate.predicted panel (S/P/Bld) 90 mL/min/1.73m??? Normal >=60 [facility] Comment on above: Order Comment: Speci [facility] Type: BLOOD SPECIMENOrdering Facility: [facility] Address: [address] [address] Result Comment: Rashmi mated Glomerular Filtration Rate (eGFR) is calculated using the 2020 CKD-EPI creatinine equation. This equation utilizes serum creatinine, sex, and age as parameters. The creatinine assay has traceable calibration to isotope dilution-mass spectrometry. Refer to KDIGO guidelines for clinical interpretation. In patients with unstable renal function, e.g. those with acute kidney injury, the eGFR may not accurately reflect actual GFR. Performed By: #### 2 4323-8, 3039-3 ####[facility]ENTERIA [id number] [place] [address] [place] Glucose [Mass/Vol] 87 mg/dL Normal 74-99 [facility] Comment on above: Order Comment: Speci men Type: BLOOD SPECIMENOrdering Facility: [facility] Address: [address] [place] [address] Result Comment: The [place] Diabetes Association (ADA) provides guidance for cutoff values for fasting glucose and random glucose. The ADA defines fasting as no caloric intake for at least 8 hours. Fasting plasma glucose results between 100 to 125 mg/dL indicate increased risk for diabetes (prediabetes). Fasting plasma glucose results greater than or equal to 126 mg/dL meet the criteria for diagnosis of diabetes. In the absence of unequivocal hyperglycemia, results should be confirmed by repeat testing. In a patient with classic symptoms of hyperglycemia or hyperglycemic crisis, random plasma glucose results greater than or equal to 200 mg/dL meet the criteria for diagnosis of diabetes. Reference: Standards of Medical Care in Diabetes 2016, [place] Diabetes Association. Diabetes Care. 2016.39(Suppl 1). Performed By: #### 2 4323-8, 3 ####[facility]ENTERIA [id number] [place] [address] [place] Potassium [Moles/Vol] 3.5 mmol/L Low 3.7-5.1 [facility] Comment on above: Order Comment: Speci men Type: BLOOD SPECIMENOrdering Facility: [facility] Address: [address] [address] Performed By: #### 2 4323-8, 3039-3 ####[facility]ENTERIA [id number] [place] [address] [place] Protein [Mass/Vol] 6.6 g/dL Normal 6.3-8.0 [facility] Comment on above: Order Comment: Speci men Type: BLOOD SPECIMENOrdering Facility: [facility] Address: [address] [place] [address] Performed By: #### 2 4323-8, 3039-3 ####[facility]ENTERIA [id number] [place] [address] [place] Sodium [Moles/Vol] 141 mmol/L Normal 136-144 [facility] Comment on above: Order Comment: Speci men Type: BLOOD SPECIMENOrdering Facility: [facility] Address: [address] [id number] Performed By: #### 2 4323-8, 3040-3 ####[facility] LABORATORYIA [id number] [place] [address] [place] Urea nitrogen [Mass/Vol] 9 mg/dL Normal 7-21 [facility] Comment on above: Order Comment: Speci men Type: BLOOD SPECIMENOrdering Facility: [facility] Address: [address] [address] Performed By: #### 2 4323-8, 3040-3 ####[facility] LABORATORYIA [id number] [place] [address] [place] ECG COMPLETEon 11-05-2022 ECG COMPLETE Ventricular Rate : 6 9 BPM Atrial Rate : 69 BPM P-R Interval : 147 ms QRS Duration : 87 ms Q-T Interval : 396 ms QTC Calculation(Bazett) : 425 ms Calculated P [place] : 67 degrees Calculated R [place] : 60 degrees Calculated T [place] : 41 degrees Sinus rhythm Normal ECG no stemi 1409 Confirmed by CRISELDA QUILES M.D. ([id number]), scientific publications editor Beatrice Valladares ([id number]) on 11/06/2022 10:50:37 AM NAME : ABBEY GARCIA PID : [id number] : 1990 Gender : Female Race : ORD : [id number] Procedure Date : Nov 05 2022 14:03:59 Edit Date : Nov 06 2022 10:50:37 Diagnosis: Sinus rhythm Normal ECG no stemi 1409 Confirmed by CRISELDA QUILES M.D. ([id number]), scientific publications editor Beatrice Valladares ([id number]) on 11/06/2022 10:50:37 AM Test Reason : Chest Pain Location : 302 : ED AVED-3 Overread By : CRISELDA QUILES M.D. Edited By : Beatrice Valladares Referred By : , Acquired by : , [facility] ED NOTEon 11-05-2022 ED NOTE HNO ID: [id number] Author: Joanne Mario RN Service: ? Author Type: Registered Nurse Type: ED Notes Filed: 11/05/2022 1:56 PM Note Text: Attempt to call report, Nurse taking patient is ROHIT. Will return call when nurse available. [facility] ED NOTE HNO ID: [id number] Author: Joanne Mario RN Service: ? Author Type: Registered Nurse Type: ED Notes Filed: 11/05/2022 1:28 PM Note Text: Patient refused all daily meds but reglan due to nausea. [facility] ED PROV NOTEon 11-05-2022 ED PROV NOTE HNO ID: [id number] Author: Criselda Quiles MD Service: Emergency Medicine Author Type: Physician Type: ED Provider Notes Filed: 11/05/2022 12:47 PM Note Text: ED Provider Note Patient Name: Abbey Garcia : 1990 SERVICE DATE: 11/05/22 History Patient presents with: Abdominal Pain: URQ abd pain x2.5 weeks hx of gallstones. NANDV worsening x1 week along with diarrhea. Cough: Dry cough and wheezing since this AM. Hx of Asthma Nausea AND Vomiting Diarrhea HPI 32-year-old female here with right upper quadrant pain for the past 2 and half weeks. Has been continuous over the last several days, radiating to right shoulder. Nauseous and occasional emesis that is nonbloody and nonbilious. Patient reports diarrhea that is hospital wellness coordinator in color than normal. No dysuria or frequency. Past surgical history significant for prior cholecystectomy, appendectomy, hysterectomy, gastric bypass. Patient also reports a history of asthma complains of shortness of breath today with nonproductive cough. Use albuterol MDI with minimal improvement. PAST MEDICAL HISTORY Diagnosis Date Anemia Takes Pro FE daily. Arthritis Asthma Class 1 obesity without serious comorbidity with body mass index (BMI) of 33.0 to 33.9 in adult 09/25/2019 Gastric ulcer 2013 GERD (gastroesophageal reflux disease) History of IBS Hypertension Hypothyroid RICHAR on CPAP wears mask every night PCOS (polycystic ovarian syndrome) PONV (postoperative nausea and vomiting) 01/29/2022 Ventral hernia without obstruction or gangrene PAST SURGICAL HISTORY Procedure Laterality Date APPENDECTOMY 08/2019 ARTHROSCOPY, SHOULDER, SURGI Right 08/2022 SLAP REPAIR and Subacromial Decompression CHOLECYSTECTOMY COLONOSCOPY GEN ANES EGD F TOTAL ABDOMINAL HYSTERECTOMY PAST SURGICAL HISTORY OF Bilateral arthroscopic knee surgery- was catcher in [employer] PAST SURGICAL HISTORY OF 08/2020 gastric sleeve PICC LINE INSERT/CONSULT 12/24/2020 VAGINAL DELIVERY AFTER DELIVERY Three C-sections FAMILY HISTORY Problem Relation Age of Onset Diabetes Mother Hypertension Mother Obesity Mother Hypertension Father Hypertension Brother Obesity Brother Hypertension Brother Obesity Brother Social History Tobacco Use Smoking status: Never Smokeless tobacco: Never Substance and Sexual Activity Alcohol use: Not Currently Drug use: Never Comment: denies tx for drug/alcohol abuse in the past. Sexual activity: Yes Partners: Male Comment: Nexplanon impact ALLERGIES Allergen Reactions Adhesive Tape-Silic* Intolerance Sensitive to certain adhesive tapes. Redness and itchy. Codeine GI Upset Nsaids (Non-Steroid* Contraindication-Medic al Surgical S/p RYGB Review of Systems Constitutional: Negative for chills and fever. HENT: Negative for congestion. Respiratory: Positive for cough, shortness of breath and wheezing. Cardiovascular: Negative for chest pain. Gastrointestinal: Positive for abdominal pain, diarrhea, nausea and vomiting. Genitourinary: Negative for dysuria and frequency. All other systems reviewed and are negative. Physical Exam Vitals BP Pulse Temp Temp src Resp SpO2 Weight Height 11/05/22 0938 11/05/22 0938 11/05/22 0938 11/05/22 0938 11/05/22 0938 11/05/22 0938 11/05/22 0938 -- 131/76 89 36.6 ?C (97.9 ?F) Oral 20 100 % 83.9 kg (185 lb) Physical Exam Vitals and nursing note reviewed. Constitutional: General: She is in acute distress. Comments: Appears in pain. HENT: Head: Normocephalic and atraumatic. Nose: Nose normal. Mouth/Throat: Mouth: Mucous membranes are dry. Pharynx: Oropharynx is clear. No oropharyngeal exudate or posterior oropharyngeal erythema. Eyes: Extraocular Movements: Extraocular movements intact. Pupils: Pupils are equal, round, and reactive to light. Cardiovascular: Rate and Rhythm: Normal rate. Pulses: Normal pulses. Heart sounds: Normal heart sounds. Pulmonary: Effort: Pulmonary effort is normal. No respiratory distress. Breath sounds: Normal breath sounds. No stridor. No wheezing, rhonchi or rales. Abdominal: Comments: Abdomen is soft. There is right upper quadrant and epigastric tenderness to palpation. No rebound or guarding. Musculoskeletal: General: Normal range of motion. Cervical back: Normal range of motion and neck supple. Skin: General: Skin is warm. Neurological: General: No focal deficit present. Mental Status: She is alert and oriented to person, place, and time. Psychiatric: Mood and Affect: Mood normal. Behavior: Behavior normal. Diagnostic Testing ED Labs Ordered and Reviewed - No data to display Procedures ED Course / Clinical Impression Clinical Impressions as of 11/05/22 1008 RUQ pain Nausea and vomiting, unspecified vomiting type Diarrhea, unspecified type Mild intermittent asthma without complication Dehydration MDM / Disposition / Plan CT abd (more content not included)... Normal [facility] HISTORY PHYSICALon HISTORY PHYSICAL HNO ID: [id number] Author: Steve Galo MD Service: Hospital Medicine Author Type: Physician Type: HANDP Filed: 11/05/2022 1:28 PM Note Text: DEPARTMENT OF HOSPITAL MEDICINE HISTORY AND PHYSICAL EXAM SERVICE DATE: 11/05/2022 Code Status: Not on file SERVICE TIME: 1:03 PM Primary Care Physician: Jaquan Morrow NIGHT AND WEEKEND COVERAGE: GALLATIN COVERAGE: Days: [phone], please contact via Can[employer] Nights: - floor: please page Hospitalist night cover [phone] - 4th floor: please page Hospitalist night cover [phone] - 5th floor: please page Hospitalist night cover [phone] Subjective CHIEF COMPLAINT: Intractable right upper quadrant pain, nausea/vomiting HPI: This is a 32 year old female with past medical history of IBS, generalized anxiety disorder, hypothyroidism and past surgical history of cholecystectomy, appendectomy, Tan-en-Y bariatric surgery in January 2022 who presented to the ED with intractable right upper quadrant pain, nausea/vomiting. Patient states that her symptoms started about 2 weeks ago when she was getting right upper quadrant pain radiating to right shoulder after food which gradually gets worse to the point that right now the pain is constant and whenever she eats or drinks it gets much worse. Patient presented to her bariatric surgeon and CT abdomen pelvis was done on 10/25/2022 which did not show any significant finding. She again presented to them and an ultrasound of right upper quadrant was done which was unremarkable. HIDA scan was ordered for future which is not done yet. Patient pain got worse and she could not keep any food or liquids down and decided to come to the ED for further evaluation and management. At ED no imaging was done due to multiple imaging already done in the past. Labs overall unremarkable except for mild hypokalemia of 3.5. Patient admitted for further evaluation and pain management. PAST MEDICAL HISTORY Diagnosis Date Anemia Takes Pro FE daily. Arthritis Asthma Class 1 obesity without serious comorbidity with body mass index (BMI) of 33.0 to 33.9 in adult 09/25/2019 Gastric ulcer 2013 GERD (gastroesophageal reflux disease) History of IBS Hypertension Hypothyroid RICHAR on CPAP wears mask every night PCOS (polycystic ovarian syndrome) PONV (postoperative nausea and vomiting) 01/29/2022 Ventral hernia without obstruction or gangrene PAST SURGICAL HISTORY Procedure Laterality Date APPENDECTOMY 08/2019 ARTHROSCOPY, SHOULDER, SURGI Right 08/2022 SLAP REPAIR and Subacromial Decompression CHOLECYSTECTOMY COLONOSCOPY GEN ANES EGD F TOTAL ABDOMINAL HYSTERECTOMY PAST SURGICAL HISTORY OF Bilateral arthroscopic knee surgery- was catcher in college PAST SURGICAL HISTORY OF 08/2020 gastric sleeve PICC LINE INSERT/CONSULT 12/24/2020 VAGINAL DELIVERY AFTER DELIVERY Three C-sections FAMILY HISTORY Problem Relation Age of Onset Diabetes Mother Hypertension Mother Obesity Mother Hypertension Father Hypertension Brother Obesity Brother Hypertension Brother Obesity Brother Social History Tobacco Use Smoking status: Never Smokeless tobacco: Never Substance Use Topics Alcohol use: Not Currently Drug use: Never Comment: denies tx for drug/alcohol abuse in the past. PRIOR TO ADMISSION MEDICATIONS: No current facility-administered medications on file prior to encounter. Current Outpatient Medications on File Prior to Encounter Medication Sig omeprazole (PRILOSEC) 40 mg capsule TAKE 1 CAPSULE BY MOUTH NEEDED escitalopram oxalate (LEXAPRO) 20 mg tablet Take 1 tablet by mouth once daily. mirtazapine (REMERON) 15 mg tablet Take 1 tablet by mouth daily at bedtime. busPIRone (BUSPAR) 10 mg tablet Take 5 mg (half tablet) twice daily for three days, then increase to 10 mg (full tablet) in the morning and 5 mg in the afternoon, then increase to 10 mg twice daily from there on metoclopramide HCl (REGLAN) 5 mg tablet Take 1 tablet by mouth before meals and at bedtime. sucralfate (CARAFATE) 1 gram tablet Take 1 tablet by mouth four times daily. linaclotide (LINZESS) 145 mcg capsule Take 1 capsule by mouth DAILY (6 AM). hydrOXYzine HCl (ATARAX) 25 mg tablet TAKE 1 TABLET BY MOUTH TWICE A DAY NEEDED FOR ANXIETY /INSOMNIA acetaminophen (TYLENOL) 500 mg tablet Take 2 tablets by mouth every 6 hours as needed for pain or fever (specify). docusate sodium (COLACE) 100 mg capsule Take 1 capsule by mouth three times daily. decrease the dose or stop for diarrhea polyethylene glycol 3350 (MIRALAX) 17 gram/dose powder Take 17 g by mouth twice daily. reduced the dose or stop if you get diarrhea and restart after 48 hours to maintain 'at least' once a day bowel movement. Dissolve dose in 4 - 8 ounces of liquid and take as directed. topiramate (TOPAMAX) 100 mg tablet Take 100 mg by mouth twice daily. multivitamin tablet Take 1 tablet by mouth. Bar (more content not included)... Normal [facility] Lipase SerPl-cCncon 11-06-19 23 Lipase [Catalytic activity/Vol] 38 U/L Normal [facility] Comment on above: Order Comment: Speci men Type: BLOOD SPECIMENOrdering Facility: [facility] Address: [address] [place], [place] [address] Performed By: #### 2 4323-8, 3040-3 ####[facility] LABORATORYCLIA [id number] [place] [address] [place] NURSING PROGon 11-05-2022 NURSING PROG HNO ID: [id number] Author: Sabina Marcelo RN Service: Nursing Author Type: Registered Nurse Type: Nursing Progress Note Filed: 11/05/2022 11:02 PM Note Text: Other: Pt declining enema at this time. States she is too nauseous . Scheduled Reglan given. Per pt she will notify RN when she is ready for enema. Normal [facility] NURSING PROG HNO ID: [id number] Author: Diamond Ragland, DEE Service: Nursing Author Type: Registered Nurse Type: Nursing Progress Note Filed: 11/05/2022 5:56 PM Note Text: Cross coverage returned page and stated based on HANDP, patient should remain NPO overnight. Educated patient on NPO diet for procedure at 10:30 AM tomorrow. Patient verbalized understanding. [facility] NURSING PROG HNO ID: [id number] Author: Diamond Ragland RN Service: Nursing Author Type: Registered Nurse Type: Nursing Progress Note Filed: 11/05/2022 7:24 PM Note Text: Patient was due for enema 1 hour post suppository. Patient stated that she was too nauseous and would like to attempt later. Multiple attempts were made after. Patient stated that she is now in too much pain and would like to wait. power and recovery shift engineer RN aware. [facility] NURSING PROG HNO ID: [id number] Author: Barbie Noel RN Service: Nursing Author Type: Registered Nurse Type: Nursing Progress Note Filed: 11/05/2022 5:27 PM Note Text: Other: Message to cross coverage, per request from Denise Moore that patient be able to drink ensure this evening, to change diet to clear liquids until midnight as patient needs to be NPO after midnight for HIDA tomorrow. [facility] NURSING PROG HNO ID: [id number] Author: Diamond Ragland RN Service: Nursing Author Type: Registered Nurse Type: Nursing Progress Note Filed: 11/05/2022 2:27 PM Note Text: Transfer Note: PATIENT NAME: Abbey Garcia Patient Location: [place] [address] [address] Room: [place] [address] Patient transferred into room/unit 408 in stable condition. Actions taken: Patient oriented to room. Call light within reach. No futher actions taken at this time. Will continue to monitor and check with patient. [facility] XR ABD 2V SUPINE W UPR/DECUB /CTLon 11-05-2022 XR ABD 2V SUPINE W UPR/DECUB/CTL * * *Final Report* * * DATE OF EXAM: Nov 05 2022 1:24PM VHX [id number] - XR ABD 2V SUPINE W UPR/DECUB/CTL / PROCEDURE REASON: Abdominal pain, acute * * * * Physician Interpretation * * * * XR ABD 2V SUPINE W UPR/DECUB/CTL PROVIDED HISTORY: Abdominal pain, acute COMPARISON: 06/22/2022 TECHNIQUE: Supine and upright abdomen RESULT: Mild gaseous distention of small and large intestinal loops without free air seen. No renal stones are visualized. Osseous structures appear grossly unremarkable IMPRESSION: Nonspecific bowel gas pattern. Special Investigator: JUANCARLOS Transcribe Date/Time: Nov 05 2022 1:35P Dictated by : DEENA ALSTON MD This examination was interpreted and the report reviewed and electronically signed by: DEENA ALSTON MD on Nov 05 2022 1:35PM EST [id number] Normal [facility] 25([place])D3 SerPl-mCncon 2022 25-hydroxyvitamin D3 [Mass/Vol] 29.0 ng/mL Low 31.0-80.0 [facility] Comment on above: Order Comment: Specmichael marrero Type: BLOOD SPECIMENOrdering Facility: [facility] Address: [address] [address] Result Comment: Clas sification of 25 [place] Vitamin D status:Deficiency/Insufficiency: < or = 30 ng/ml.Sufficiency/Optimal Levels: 31-80 ng/mLToxicity: > 100 ng/mL.Test performed by chemiluminescent immunoassay. Performed By: #### 1 989-3 ####[facility] LABCLIA [id number] [place] [address] [place] Amylase SerPl-cCncon 023 Amylase [Catalytic activity/Vol] 40 U/L Normal 30-104 [facility] Comment on above: Order Comment: Geraldo marrero Type: BLOOD SPECIMENOrdering Facility: [facility] Address: [address] [place] [address] Performed By: #### 2 731-8, 1798-8, 2284-8, 2132-9 ####[facility] LABCLIA [id number] [place] [address] [place] CBC panel Auto (Bld)on 11-04 Erythrocyte distribution width (RBC) [Ratio] 13.2 % Normal 11.5-15.0 [facility] Comment on above: Order Comment: Speci men Type: BLOOD SPECIMENOrdering Facility: [facility] Address: [address] [place] [address] Performed By: #### 5 8410-2 ####[facility] LABCLIA [id number] [place] [address] [place] [facility] Hematocrit (Bld) [Volume fraction] 40.5 % Normal 36.0-46.0 [facility] Comment on above: Order Comment: Speci men Type: BLOOD SPECIMENOrdering Facility: [facility] Address: [address] [place] [address] Performed By: #### 5 8410-2 ####[facility] LABIA [id number] [address] [place] Hemoglobin (Bld) [Mass/Vol] 13.6 g/dL Normal 11.5-15.5 [facility] Comment on above: Order Comment: Speci men Type: BLOOD SPECIMENOrdering Facility: [facility] Address: [address] [place] [address] Performed By: #### 5 8410-2 ####[facility] LABIA [id number] [place] [address] [place] MCH (RBC) [Entitic mass] 30.7 pg Normal 26.0-34.0 [facility] Comment on above: Order Comment: Speci men Type: BLOOD SPECIMENOrdering Facility: [facility] Address: [address] [place], [place] [address] Performed By: #### 5 8410-2 ####[facility] LABCLIA [id number] [place] [address] [place] MCHC (RBC) [Mass/Vol] 33.6 g/dL Normal 30.5-36.0 [facility] Comment on above: Order Comment: Speci men Type: BLOOD SPECIMENOrdering Facility: [facility] Address: [address] Performed By: #### 5 8410-2 ####[facility] LABSOU[facility] [id number] [address] [place] MCV (RBC) [Entitic vol] 91.4 fL Normal 80.0-100.0 [facility] Comment on above: Order Comment: Speci men Type: BLOOD SPECIMENOrdering Facility: [facility] Address: [address] Performed By: #### 5 8410-2 ####[facility] LABSOUTHWE[facility] [id number] [place] [address] [place] Nucleated RBC (Bld) [#/Vol] 10*3/uL Normal <0.01 [facility] Comment on above: Order Comment: Speci men Type: BLOOD SPECIMENOrdering Facility: [facility] Address: [address] Performed By: #### 5 8410-2 ####[facility] [id number] [place] [address] [place] Platelet mean volume (Bld) [Entitic vol] 12.1 fL Normal 9.0-12.7 [facility] Comment on above: Order Comment: Speci men Type: BLOOD SPECIMENOrdering Facility: [facility] Address: [address] [place] [address] Performed By: #### 5 8410-2 ####[facility] LABIA [id number] [place] [address] [place] Platelets (Bld) [#/Vol] 313 10*3/uL Normal 150-400 [facility] Comment on above: Order Comment: Speci men Type: BLOOD SPECIMENOrdering Facility: [facility] Address: [address] [place] [address] Performed By: #### 5 8410-2 ####[facility] LABIA [id number] [place] [address] [place] RBC (Bld) [#/Vol] 4.43 10*6/uL Normal 3.90-5.20 [facility] Comment on above: Order Comment: Speci men Type: BLOOD SPECIMENOrdering Facility: [facility] Address: [address] [place] [address] Performed By: #### 5 8410-2 ####[facility] SYSTEM[facility] [id number] [place] [address] [place] WBC (Bld) [#/Vol] 6.69 10*3/uL Normal 3.70-11.00 [facility] Comment on above: Order Comment: Speci men Type: BLOOD SPECIMENOrdering Facility: [facility] Address: [address] [place] [address] Performed By: #### 5 8410-2 ####[facility] [id number] [place] [address] [place] CNCOon 11-04-2022 CNCO Letter Text Normal [facility] CNOVon 11-04-2022 CNOV Normal [facility] Comprehensive metabolic 2000 panelon 11-04-2022 Albumin [Mass/Vol] 4.3 g/dL Normal 3.9-4.9 [facility] Comment on above: Order Comment: Speci men Type: BLOOD SPECIMENOrdering Facility: [facility] Address: [address] [place], [place] [address] Performed By: #### 2 4323-8, 42940-9, 3040-3, 2276-4 ####[facility] LABSOU[facility]WE[facility] [id number] [place] [address] [place] ALP [Catalytic activity/Vol] 69 U/L Normal 34-123 [facility] Comment on above: Order Comment: Speci men Type: BLOOD SPECIMENOrdering Facility: [facility] Address: [address] [place] [address] Performed By: #### 2 4323-8, 90403-5, 3040-3, 6-4 ####[facility] LABCLIA [id number] [place] [address] [place] ALT [Catalytic activity/Vol] 16 U/L Normal 7-38 [facility] Comment on above: Order Comment: Speci men Type: BLOOD SPECIMENOrdering Facility: [facility] Address: [address] [place] [address] Performed By: #### 2 4323-8, 71258-5, 0-3, 2275-4 ####[facility] LABCLIA [id number] [place] [address] [place] Anion gap [Moles/Vol] 13 mmol/L Normal 9-18 [facility] Comment on above: Order Comment: Speci men Type: BLOOD SPECIMENOrdering Facility: [facility] Address: [address] [place] [address] Performed By: #### 2 4323-8, 03147-6, 0-3, 2275-4 ####[facility] LABIA [id number] [place] [address] [place] AST [Catalytic activity/Vol] 25 U/L Normal 13-35 [facility] Comment on above: Order Comment: Speci men Type: BLOOD SPECIMENOrdering Facility: [facility] Address: [address] [place], [place] [address] Performed By: #### 2 4323-8, 12229-0, 3040-3, 2275-4 ####[facility] LABCLIA [id number] [place] [address] [place] Bilirubin [Mass/Vol] 0.3 mg/dL Normal 0.2-1.3 [facility] Comment on above: Order Comment: Speci men Type: BLOOD SPECIMENOrdering Facility: [facility] Address: [address] [place], [place] [address] Performed By: #### 2 4323-8, 91253-5, 3040-3, 2275-4 ####[facility] LABCLIA [id number] [place] [address] [place] Calcium [Mass/Vol] 9.1 mg/dL Normal 8.5-10.2 [facility] Comment on above: Order Comment: Speci men Type: BLOOD SPECIMENOrdering Facility: [facility] Address: [address] [place], [place] [address] Performed By: #### 2 4323-8, 60315-0, 0-3, 2275-4 ####[facility] LABIA [id number] [place] [address] [place] Chloride [Moles/Vol] 105 mmol/L Normal 97-105 [facility] Comment on above: Order Comment: Speci men Type: BLOOD SPECIMENOrdering Facility: [facility] Address: [address] [place] [address] Performed By: #### 2 4323-8, 32252-6, 304-3, 2275-4 ####[facility] LABIA [id number] [place] [address] [place] CO2 [Moles/Vol] 19 mmol/L Low 22-30 [facility] Comment on above: Order Comment: Speci men Type: BLOOD SPECIMENOrdering Facility: [facility] Address: [address] [place], [place] [address] Performed By: #### 2 4323-8, 24922-5, 3040-3, 2275-4 ####[facility] LABCLIA [id number] [place] [address] [place] Creatinine [Mass/Vol] 0.77 mg/dL Normal 0.58-0.96 [facility] Comment on above: Order Comment: Speci men Type: BLOOD SPECIMENOrdering Facility: [facility] Address: [address] [address] Performed By: #### 2 4323-8, 58635-3, 3040-3, 2276-4 ####[facility] LABCLIA [id number] [address] Creatinine and Glomerular filtration rate.predicted panel (S/P/Bld) 105 mL/min/1.73m??? Normal >=60 [facility] Comment on above: Order Comment: Geraldo marrero Type: BLOOD SPECIMENOrdering Facility: [facility] Address: [address] Result Comment: Rashmi mated Glomerular Filtration Rate (eGFR) is calculated using the 2020 CKD-EPI creatinine equation. This equation utilizes serum creatinine, sex, and age as parameters. The creatinine assay has traceable calibration to isotope dilution-mass spectrometry. Refer to KDIGO guidelines for clinical interpretation. In patients with unstable renal function, e.g. those with acute kidney injury, the eGFR may not accurately reflect actual GFR. Performed By: #### 2 4323-8, 93522-7, 3040-3, 2276-4 ####[facility] LABIA [id number] [place] [address] [place] Glucose [Mass/Vol] 224 mg/dL High 74-99 [facility] Comment on above: Order Comment: Geraldo marrero Type: BLOOD SPECIMENOrdering Facility: [facility] Address: [address] [place], [place] [address] Result Comment: The [place] Diabetes Association (ADA) provides guidance for cutoff values for fasting glucose and random glucose. The ADA defines fasting as no caloric intake for at least 8 hours. Fasting plasma glucose results between 100 to 125 mg/dL indicate increased risk for diabetes (prediabetes).Fasting plasma glucose results greater than or equal to 126 mg/dL meet the criteria for diagnosis of diabetes. In the absence of unequivocal hyperglycemia, results should be confirmed by repeat testing. In a patient with classic symptoms of hyperglycemia or hyperglycemic crisis, random plasma glucose results greater than or equal to 200 mg/dL meet the criteria for diagnosis of diabetes.Reference: Standards of Medical Care in Diabetes 2016, [place] [employer] Association. Diabetes Care. 2016.39(Suppl 1). Performed By: #### 2 4323-8, 91126-3, 0-3, 2275-4 ####[facility] LABCLIA [id number] [address] [address] [place] Potassium [Moles/Vol] 3.7 mmol/L Normal 3.7-5.1 [facility] Comment on above: Order Comment: Speci men Type: BLOOD SPECIMENOrdering Facility: [facility] Address: [address] [place] [address] Performed By: #### 2 4323-8, 59325-7, 0-3, 2275-4 ####[facility] LABIA [id number] [place] [address] [place] Protein [Mass/Vol] 6.9 g/dL Normal 6.3-8.0 [facility] Comment on above: Order Comment: Speci men Type: BLOOD SPECIMENOrdering Facility: [facility] Address: [address] [place] [address] Performed By: #### 2 4323-8, 87570-3, 3039-3, 2275-4 ####[facility] LABIA [id number] [place] [id number] [place] Sodium [Moles/Vol] 137 mmol/L Normal 136-144 [facility] Comment on above: Order Comment: Speci men Type: BLOOD SPECIMENOrdering Facility: [facility] Address: [address] Performed By: #### 2 4323-8, 77421-0, 3040-3, 2275-4 ####[facility] LABCLIA [id number] [address] [address] [place] Urea nitrogen [Mass/Vol] 9 mg/dL Normal 7-21 [facility] Comment on above: Order Comment: Speci men Type: BLOOD SPECIMENOrdering Facility: [facility] Address: [address] [place] [address] Performed By: #### 2 4323-8, 54852-4, 3040-3, 2275-4 ####[facility] LABCLIA [id number] [place] [address] [place] Fer[facility] Ferritin [Mass/Vol] 13.2 ng/mL Low 14.7-205.1 [facility] Comment on above: Order Comment: Speci men Type: BLOOD SPECIMENOrdering Facility: [facility] Address: [address] [place] [address] Performed By: #### 2 4323-8, 93775-7, 0-3, 2275-4 ####[facility] LABCLIA [id number] [place] [address] [place] Folate SerPl-ncon 11-05-19 Folate [Mass/Vol] 9.3 ng/mL Normal >4.7 [facility] Comment on above: Order Comment: Speci men Type: BLOOD SPECIMENOrdering Facility: [facility] Address: [address] [place] [address] Performed By: #### 2 731-8, 1798-8, 2284-8, 2132-9 ####[facility] LABCLIA [id number] [place] [address] [place] Iron and Iron binding capaci ty panelon 11-04-2022 Iron [Mass/Vol] 52 ug/dL Normal 41-186 [facility] Comment on above: Order Comment: Speci men Type: BLOOD SPECIMENOrdering Facility: [facility] Address: [address] [place] [address] Performed By: #### 2 4323-8, 89936-0, 0-3, 6-4 ####[facility] LABCLIA [id number] [place] Iron binding capacity [Mass/Vol] 348 ug/dL Normal 232-386 [facility] Comment on above: Order Comment: Speci men Type: BLOOD SPECIMENOrdering Facility: [facility] Address: [address] [place] [address] Performed By: #### 2 4323-8, 55511-2, 3040-3, 6-4 ####[facility] LABIA [id number] [place] [address] [place] Iron/TIBC [Molar ratio] 14.9 % Low 15.0-57.0 [facility] Comment on above: Order Comment: Speci men Type: BLOOD SPECIMENOrdering Facility: [facility] Address: [address] [place] [address] Performed By: #### 2 4323-8, 36316-3, 3040-3, 6-4 ####[facility] LABIA [id number] [place] [address] [place] Lipase SerPl-cCncon 11-05-19 23 Lipase [Catalytic activity/Vol] 35 U/L Normal 16-61 [facility] Comment on above: Order Comment: Speci men Type: BLOOD SPECIMENOrdering Facility: [facility] Address: [address] [place] [address] Performed By: #### 2 4323-8, 49201-0, 3040-3, 6-4 ####[facility] LABIA [id number] [place] [address] [place] PTH-Intact SerPl-mCncon 09-2 0-2022 Parathyrin.intact [Mass/Vol] 27 pg/mL Normal 15-65 [facility] Comment on above: Order Comment: Speci men Type: BLOOD SPECIMENOrdering Facility: [facility] Address: [address] [place] [address] Performed By: #### 2 731-8, 1798-8, 2284-8, 2132-9 ####[facility] LABCLIA [id number] [place] [address] [place] US ABD RIGHT UPPER QUADRANTo n 11-04-2022 US ABD RIGHT UPPER QUADRANT * * *Final Report* * * DATE OF EXAM: Nov 04 2022 11:15AM VHU 1032 - US ABD RIGHT UPPER QUADRANT / PROCEDURE REASON: multiple diagnoses * * * * Physician Interpretation * * * * EXAMINATION: RIGHT UPPER QUADRANT ULTRASOUND CLINICAL HISTORY: Nausea. Right upper quadrant pain TECHNIQUE: Sonography of the right upper quadrant was performed. Images were obtained and stored in a permanent archive. MQ: [id number] COMPARISON: 10/25/2022 RESULT: Pancreas: Obscured by bowel gas Liver: Echotexture: Normal, homogeneous. Echogenicity: Normal Surface contour: Smooth Lesions: Multiple hepatic cysts are seen. These measure up to 2.1 cm and 1.3 cm in size. Biliary: No intrahepatic biliary duct dilation. CBD: 0.5 cm at the hilum. Gallbladder: Prior cholecystectomy Right Kidney: No hydronephrosis. The right kidney measures approximately 11.8 cm in length Ascites: None. IMPRESSION: Hepatic cysts are noted with no biliary dilatation seen Special Investigator: [facility] FLORENCEOfelia Transcribe Date/Time: Nov 04 2022 11:05P Dictated by : DEENA ALSTON MD This examination was interpreted and the report reviewed and electronically signed by: DEENA ALSTON MD on Nov 04 2022 11:07PM EST [id number] Normal [facility] VITAMIN B1 (THIAMINE), WHOLE BLOODon 11-04-2022 Thiamine (Bld) [Moles/Vol] 165.0 nmol/L Normal 84.3-213.3 [facility] Comment on above: Order Comment: Speci men Type: BLOOD SPECIMENOrdering Facility: [facility] Address: [address] [place] [address] Result Comment: This assay measures the concentration of thiamine diphosphate (TDP), the primary active form of vitamin B1. Approximately 90 percent of vitamin B1 present in whole blood is TDP. Thiamine and thiamine monophosphate, which comprise the remaining 10 percent, are not measured.This test was developed and its performance characteristics determined by [facility] [place] ([facility] It has not been cleared or approved by the FDA. [facility] is regulated under CLIA as qualified to perform high-complexity testing. This test is used for clinical purposes. It should not be regarded as investigational or for research. Performed By: #### B 1WB ####[facility] LABIA [id number] [place] [address] [place] Vit A SerPl-mCncon 3 Retinol [Mass/Vol] 0.44 mg/L Normal 0.30-1.20 [facility] Comment on above: Order Comment: Speci men Type: BLOOD SPECIMENOrdering Facility: [facility] Address: [address] [place] [address] Result Comment: This test was developed and its performance characteristics determined by [facility] [place] ([facility]). It has not been cleared or approved by the FDA. [facility] is regulated under CLIA as qualified to perform high-complexity testing. This test is used for clinical purposes. It should not be regarded as investigational or for research. Performed By: #### 2 923-1 ####[facility] [id number] [address] [place] Vit B12 SerPl-mCncon 023 Cobalamin (Vitamin B12) [Mass/Vol] 1018 pg/mL Normal 232-1245 [facility] Comment on above: Order Comment: Speci men Type: BLOOD SPECIMENOrdering Facility: [facility] Address: [address] [place], [place] [id number] Performed By: #### 2 731-8, 1798-8, 2284-8, 2132-9 ####[facility] LABIA [id number] [place] [address] [place] Zinc SerPl-mCncon 11-04-2022 Zinc [Mass/Vol] 51 ug/dL Low 60-120 [facility] Comment on above: Order Comment: Speci men Type: BLOOD SPECIMENOrdering Facility: [facility] Address: [address] [facility] [place] [address] Result Comment: This test was developed and its performance characteristics determined by [facility]'s [facility] [place] ([facility]). It has not been cleared or approved by the FDA. -[facility] is regulated under CLIA as qualified to perform high-complexity testing. This test is used for clinical purposes. It should not be regarded as investigational or for research. Performed By: #### 5 763-8 ####[facility] LABCLIA [id number] [facility] [id number] [place] Ambulatory Visit Summaryon 0 11-03-2022 Ambulatory Visit Summary ABBEY GARCIA :1990 Visit Date:11/03/2022 Ambulatory Visit Instructions Your Diagnosis BMI 30.0-30.9,adult Non-smoker Your Care Team Attending Physician - Jaquan Paula Primary Care Physician - Jaquan Paula This Is Your Medications List busPIRone (busPIRone 10 mg Tab) escitalopram (escitalopram 20 mg Tab) levothyroxine (levothyroxine 100 mcg (0.1 mg) Tab) liothyronine (liothyronine 5 mcg Tab) mirtazapine (mirtazapine 15 mg Tab) ondansetron (Zofran 4 mg Tab) predniSONE (predniSONE 20 mg Tab) promethazine (promethazine 25 mg Tab) sucralfate (Carafate 1 g/10 mL Susp-Oral) topiramate (Topamax 100 mg Tab) Procedures Performed Esophagogastroduodenos copy, flexible, transoral; diagnostic, including collection of specimen(s) by brushing or washing, when performed (separate procedure) (10/27/2022), Revision (01/29/2022), Gastric sleeve (02/15/2021), Esophagogastroduodenos copy (01/20/2021), Hysterectomy (11/04/2020), Appendectomy, Cholecystectomy, Colonoscopy. Discharge Vitals Heart Rate (Peripheral) 70 Respiratory Rate 18 Blood Pressure 122/84 Height 168 cm Height 66 in Weight 85.5 kg Weight 188.1 lb BMI 30.29 What to do next Scheduled Follow-Up Appointments Wednesday 2:40 PM EDT [facility]: [facility] [address] [place] [address]- \.br\ Medications\.b r\ What How Much When Why Instructions\. br\ Unchanged busPIRone (busPIRone 10 mg Tab) 1 Tablets By Mouth 2 times a day\.br\ Unchanged escitalopram (escitalopram 20 mg Tab) 1 Tablets By Mouth Every day\.br\ Unchanged levothyroxine (levothyroxine 100 mcg (0.1 mg) Tab) 1 Tablets By Mouth Every day Thyroid disorder\.br\ Unchanged liothyronine (liothyronine 5 mcg Tab) 5 Microgram By Mouth Every day\.br\ Unchanged mirtazapine (mirtazapine 15 mg Tab) 1 Tablets By Mouth Once a day (at bedtime)\.br\ Unchanged ondansetron (Zofran 4 mg Tab) 1 Tablets By Mouth Every 6 hours as needed for Nausea Take one tab by mouth every six hours as needed for nausea \.br\ Unchanged predniSONE (predniSONE 20 mg Tab) See instructions pt has one dose left \.br\ Unchanged promethazine (promethazine 25 mg Tab) 1 Tablets By Mouth 3 times a day\.br\ Unchanged sucralfate (Carafate 1 g/ 10 mL Susp-Oral) 10 Milliliter By Mouth 4 times a day\.br\ Unchanged topiramate (Topamax 100 mg Tab) By Mouth 2 times a day\.br\ Allergies\.br\ NSAIDs (Unknown)\.br\ codeine (unknown)\.br\ Problems\.br\ Ongoing - Any problem that you are currently receiving treatment for.\.br\ Abnormal thyroid blood test\.br\ Arthritis\.br\ Asthma\.br\ BMI 30.0-30.9,adul t\.br\ Depression\.br \ Gall stone\.br\ Hyperthyroidis m\.br\ Kidney cysts\.br\ Kidney stone\.br\ LUQ pain\.br\ Mixed incontinence urge and stress\.br\ Nausea\.br\ Rash of body\.br\ Renal cyst\.br\ Right flank pain\.br\ Historical - Any problem that you are no longer receiving treatment for.\.br\ Allergic rhinitis\.br\ Anemia\.br\ Hypothyroidism \.br\ Metabolic syndrome\.br\ PCOS- polycystic ovary syndrome\.br\ \.br\ [facility] Medicine Office/Clini c Noteon 11-03-2022 Family Medicine Office/Clinic Note HPI Staff Abbey is a 32 year old female presenting TCM follow up TCM followup: Hospital: [facility](records requested 10/28/22) Admit date: 10/25/22 Discharge Date: 10/28/22 Symptoms the patient presented with: Abdominal pain/Kidney pain Symptom onset/injury onset: Testing Performed: New medications: Reglan 5mg TID and AC/HS New specialist involved Therapy ordered: Next appointment date: Current concerns: Pt has [employer] appointment 11/19/22 Pt states seeing Ingrid Kat tomorrow did pt sleeve and Gastric bypass unable to keep anything down. Feeling weak, unable to eat or drink anything for past 1.5 weeks History of Present Illness pt presents today for follow up on admission Review of Systems PHQ Score Initial Depression Screen Score: 0 ROS - Provider Constitutional: no fever, no chills, no sweats, no fatigue Respiratory: no shortness of breath, no cough, no orthopnea, no wheezing. Cardiovascular: no chest pain, no palpitations, no edema. Neurologic: no headache, no dizziness, no numbness, no weakness. nausea, abdominal pain Physical Exam Vitals & Measurements HR: 70(Peripheral) RR: 18 BP: 122/84 SpO2: 96% HT: 66 in HT: 168 cm WT: 85.5 kg WT: 188.1 lb BMI: 30.29 General: alert, no acute distress ENMT: oral mucosa moist, no pharyngeal erythema or exudate Cardiovascular: regular rate and rhythm, normal peripheral perfusion Respiratory: Lungs CTA, respirations non labored Extremities: no deformity, no trauma Neurological: oriented x 4, LOC appropriate for age, CN II-XII intact, motor strength equal & normal bilaterally, speech normal Assessment/Plan 1. Nausea (R11.0: Nausea) pt presents today for follow up from Admission to [facility] for abdominal pain, dehydration and severe nausea. pt is still very nauseated and unable to keep even ice chips down. she has an appointment with bariatric surgeon tomorrow. They are going to decide what next steps are. possibly going back into surgery. pt will update provider. all questions answered. RTC as needed 3. BMI 30.0-30.9,adult (Z68.30: Body mass index [BMI] 30.0-30.9, adult) BMI eduction complete 4. Non-smoker (Z78.9: Other specified health status) continue not smoking Orders: meclizine, 12.5 mg = 1 tab(s), Oral, TID, PRN for dizziness, # 30 tab(s), Refills(s) 0, [id number], 168, cm, 06/10/22 10:57:00 EDT, Height/Length Dosing, 83.7, kg, 06/10/22 10:57:00 EDT, Weight Dosing nitrofurantoin, 100 mg = 1 cap(s), Oral, BID, X 10 day(s), # 20 cap(s), Refills(s) 0, Pharmacy: [facility]/pharmacy #[id number], 168, cm, 10/20/22 8:21:00 EDT, Height/Length Dosing, 85.6, kg, 10/20/22 8:21:00 EDT, Weight Dosing tamsulosin, 0.4 mg = 1 cap(s), Oral, Daily, # 30 cap(s), Refills(s) 0, Pharmacy: [facility]/pharmacy #[id number], 168, cm, 10/20/22 8:21:00 EDT, Height/Length Dosing, 85.6, kg, 10/20/22 8:21:00 EDT, Weight Dosing tramadol, 50 mg = 1 tab(s), Oral, q12hr, PRN for pain, # 30 tab(s), Refills(s) 0, Pharmacy: [facility]/pharmacy #[id number], 168, cm, 10/20/22 8:21:00 EDT, Height/Length Dosing, 85.6, kg, 10/20/22 8:21:00 EDT, Weight Dosing Follow-up No qualifying data available Problem List/Past Medical History Ongoing Abnormal thyroid blood test Arthritis Asthma BMI 30.0-30.9,adult Depression Gall stone Hyperthyroidism Kidney cysts Kidney stone LUQ pain Mixed incontinence urge and stress Nausea Rash of body Renal cyst Right flank pain Historical Allergic rhinitis Anemia Hypothyroidism Metabolic syndrome PCOS- polycystic ovary syndrome Procedure/Surgical History Esophagogastroduodenos copy, flexible, transoral; diagnostic, including collection of specimen(s) by brushing or washing, when performed (separate procedure) (10/27/2022), Revision (01/29/2022), Gastric sleeve (02/15/2021), Esophagogastroduodenos copy (01/20/2021), Hysterectomy (11/04/2020), Appendectomy, Cholecystectomy, Colonoscopy. Medications busPIRone 10 mg Tab, 10 mg= 1 tab(s), Oral, BID Carafate 1 g/10 mL Susp-Oral, 1 gm= 10 mL, Oral, QID escitalopram 20 mg Tab, 20 mg= 1 tab(s), Oral, Daily levothyroxine 100 mcg (0.1 mg) Tab, 100 mcg= 1 tab(s), Oral, Daily, 1 refills liothyronine 5 mcg Tab, 5 mcg, Oral, Daily, 1 refills mirtazapine 15 mg Tab, 15 mg= 1 tab(s), Oral, Once a day (at bedtime) predniSONE 20 mg Tab, See Instructions promethazine 25 mg Tab, 25 mg= 1 tab(s), Oral, TID Topamax 100 mg Tab, Oral, BID Zofran 4 mg Tab, 4 mg= 1 tab(s), Oral, q6hr, PRN Allergies NSAIDs (Unknown) codeine (unknown) Social History Alcohol - Denies Alcohol Use, 12/20/2020 Substance Abuse - Denies Substance Abuse, 12/20/2020 Tobacco - Denies Tobacco Use, 12/20/2020 Never (less than 100 in lifetime) Tobacco Use:. Never Smokeless Tobacco Use:. Ready to change: No. Household tobacco concerns: No., 11/03/2022 Family History Alcoholism: Brother. Asthma: Brother. Diabetes clinic: Father. Diabetes mellitus type 2: Mother. High cholesterol: Mother. (more content not included)... Normal [facility] Comment on above: Result Comment: Elec tronically Signed By: Jaquan Paula\Date and Time Signed: 11/03/22 11:43 EDT Provider Letteron 11-03-2022 Provider Letter November 03, 2022 ABBEY GARCIA [id number] [place] [id number] : 1990 To Whom It May Concern, Please excuse above patient from work Oct 26 through Nov 04, 2022 Date of Illness: From: _ 10-26-22 To: _ 11-04-22 May Return to Work On: 11-05-22 Restrictions: _ none Comments: _ Sincerely, [address] [facility] CBCon 11-02-2022 ABSOLUTE BAS 0.0 10*3/uL Normal 0.0-0.2 [facility] Comment on above: Performed By: #### A CBC, LIPA2, CMPF #### Testing performed at [address] [address] ABSOLUTE EOS 0.0 10*3/uL Normal 0.0-0.7 [facility] Comment on above: Performed By: #### A CBC, LIPA2, CMPF #### Testing performed at [address] [address] ABSOLUTE NEUTROPHIL COUNT 3.6 10*3/uL Normal 1.4-6.5 [facility] Comment on above: Performed By: #### A CBC, LIPA2, CMPF #### Testing performed at [address] [address] Basophils/100 WBC (Bld) 0.3 % Normal 0.0-2.0 [facility] Comment on above: Performed By: #### A CBC, LIPA2, CMPF #### Testing performed at [address] [address] DTYPE AUTO DIFF Normal [facility] Comment on above: Performed By: #### A CBC, LIPA2, CMPF #### Testing performed at [address] [address] Eosinophils/100 WBC (Bld) 0.1 % Normal 0.0-11.0 [facility] Comment on above: Performed By: #### A CBC, LIPA2, CMPF #### Testing performed at [address] [address] Lymphocytes (Bld) [#/Vol] 0.8 10*3/uL Low 1.2-3.4 [facility] Comment on above: Performed By: #### A CBC, LIPA2, CMPF #### Testing performed at [address] [address] Lymphocytes/100 WBC (Bld) 17.9 % Low 20.0-55.0 [facility] Comment on above: Performed By: #### A CBC, LIPA2, CMPF #### Testing performed at [address] [address] Monocytes (Bld) [#/Vol] 0.1 10*3/uL Normal 0.0-0.7 [facility] Comment on above: Performed By: #### A CBC, LIPA2, CMPF #### Testing performed at [address] [address] Monocytes/100 WBC (Bld) 2.3 % Normal 0.0-10.0 [facility] Comment on above: Performed By: #### A CBC, LIPA2, CMPF #### Testing performed at [address] [address] Neutrophils/100 WBC (Bld) 79.4 % High 37.0-75.0 [facility] Comment on above: Performed By: #### A CBC, LIPA2, CMPF #### Testing performed at [address] [address] Erythrocyte distribution width (RBC) [Ratio] 14.8 % High 11.5-14.5 [facility] Comment on above: Performed By: #### A CBC, LIPA2, CMPF #### Testing performed at [address] [address] Hematocrit (Bld) [Volume fraction] 38.8 % Normal 36.0-48.0 [facility] Comment on above: Performed By: #### A CBC, LIPA2, CMPF #### Testing performed at [address] [address] Hemoglobin (Bld) [Mass/Vol] 13.0 g/dL Normal 12.0-16.0 [facility] Comment on above: Performed By: #### A CBC, LIPA2, CMPF #### Testing performed at [address] [address] MCH (RBC) [Entitic mass] 30.6 pg Normal 26.0-35.0 [facility] Comment on above: Performed By: #### A CBC, LIPA2, CMPF #### Testing performed at [address] [address] MCHC (RBC) [Mass/Vol] 33.5 g/dL Normal 27.0-37.0 [facility] Comment on above: Performed By: #### A CBC, LIPA2, CMPF #### Testing performed at [address] [address] MCV (RBC) [Entitic vol] 91.2 fL Normal 80.0-100.0 [facility] Comment on above: Performed By: #### A CBC, LIPA2, CMPF #### Testing performed at [address] [address] Platelet mean volume (Bld) [Entitic vol] 9.9 fL Normal 7.4-11.0 [facility] Comment on above: Performed By: #### A CBC, LIPA2, CMPF #### Testing performed at [address] [address] Platelets (Bld) [#/Vol] 234 10*3/uL Normal 130-400 [facility] Comment on above: Performed By: #### A CBC, LIPA2, CMPF #### Testing performed at [address] [address] RBC (Bld) [#/Vol] 4.25 10*6/uL Normal 4.0-5.4 [facility] Comment on above: Performed By: #### A CBC, LIPA2, CMPF #### Testing performed at [address] [address] WBC (Bld) [#/Vol] 4.5 10*3/uL Normal 3.6-11.0 [facility] Comment on above: Performed By: #### A CBC, LIPA2, CMPF #### Testing performed at [facility] [address] [facility] [place] [address] CBC, EDIF, PLATELETon 2022 ABSOLUTE BASOPHIL COUNT 0.0 10*3/uL 0.0 - 0.2 10*3/uL [facility] Basophils/100 WBC (Bld) 0.3 % 0.0 - 2.0 % [facility] Differential cell count method Nom (Bld) AUTO DIFF % [facility] Eosinophils (Bld) [#/Vol] 0.0 10*3/uL 0.0 - 0.7 10*3/uL [facility] Eosinophils/100 WBC (Bld) 0.1 % 0.0 - 11.0 % [facility] Erythrocyte distribution width (RBC) [Ratio] 14.8 % High 11.5 - 14.5 % [facility] Hematocrit (Bld) [Volume fraction] 38.8 % 36.0 - 48.0 % [facility] Hemoglobin (Bld) [Mass/Vol] 13.0 g/dL [facility] Interpretation and review of laboratory results Abnormal [facility] Lymphocytes (Bld) [#/Vol] 0.8 10*3/uL Low 1.2 - 3.4 10*3/uL [facility] Lymphocytes/100 WBC (Bld) 17.9 % Low 20.0 - 55.0 % [facility] MCH (RBC) [Entitic mass] 30.6 pg 26.0 - 35.0 PG [facility] MCHC (RBC) [Mass/Vol] 33.5 g/dL [facility] MCV (RBC) [Entitic vol] 91.2 fL [facility] Monocytes (Bld) [#/Vol] 0.1 10*3/uL 0.0 - 0.7 10*3/uL [facility] Monocytes/100 WBC (Bld) 2.3 % 0.0 - 10.0 % [facility] Neutrophils (Bld) [#/Vol] 3.6 10*3/uL 1.4 - 6.5 10*3/uL [facility] Neutrophils/100 WBC (Bld) 79.4 % High 37.0 - 75.0 % [facility] Platelet mean volume (Bld) [Entitic vol] 9.9 fL [facility] Platelets (Bld) [#/Vol] 234 10*3/uL 130 - 400 10*3/uL [facility] RBC (Bld) [#/Vol] 4.25 10*6/uL 4.0 - 5.4 10*6/uL [facility] WBC (Bld) [#/Vol] 4.5 10*3/uL 3.6 - 11.0 10*3/uL [facility] CMP FASTINGon 11-02-2022 A:G RATIO 1.5 RATIO Normal [facility] Comment on above: Performed By: #### A CBC, LIPA2, CMPF #### Testing performed at [address] [address] ALBUMIN 4.4 G/dl Normal 3.5-5.0 [facility] Comment on above: Performed By: #### A CBC, LIPA2, CMPF #### Testing performed at [address] [address] ALP [Catalytic activity/Vol] 87 U/L Normal 38-126 [facility] Comment on above: Performed By: #### A CBC, LIPA2, CMPF #### Testing performed at [address] [address] ALT [Catalytic activity/Vol] 22 U/L Normal <35 [facility] Comment on above: Performed By: #### A CBC, LIPA2, CMPF #### Testing performed at [address] [address] AST [Catalytic activity/Vol] 34 U/L Normal 14-36 [facility] Comment on above: Performed By: #### A CBC, LIPA2, CMPF #### Testing performed at [address] [address] Bilirubin [Mass/Vol] 0.4 mg/dL Normal 0.2-1.3 [facility] Comment on above: Performed By: #### A CBC, LIPA2, CMPF #### Testing performed at [address] [address] Calcium [Mass/Vol] 9.0 mg/dL Normal 8.4-10.2 [facility] Comment on above: Performed By: #### A CBC, LIPA2, CMPF #### Testing performed at [address] [address] Chloride [Moles/Vol] 106 mmol/L Normal 98-107 [facility] Comment on above: Result Comment: Yessy plascencia note: Triglyceride levels of 600mg/dL or higher may positively bias chloride results by approximately 2.1 mmol Performed By: #### A CBC, LIPA2, CMPF #### Testing performed at [address] [address] CO2 [Moles/Vol] 22 mmol/L Normal 22-30 [facility] Comment on above: Performed By: #### A CBC, LIPA2, CMPF #### Testing performed at [address] [address] Creatinine [Mass/Vol] 0.80 mg/dL Normal 0.70-1.20 [facility] Comment on above: Performed By: #### A CBC, LIPA2, CMPF #### Testing performed at [address] [address] EST. GFR, 106 ml/min/1.73sq.m [facility] Comment on above: Performed By: #### A CBC, LIPA2, CMPF #### Testing performed at [address] [address] EST. GFR,Non 88 ml/min/1.73sq.m [facility] Comment on above: Performed By: #### A CBC, LIPA2, CMPF #### Testing performed at [address] [address] GFR Information Average GFR for 30-3 9 years old = 107. Normal [facility] Comment on above: Result Comment: Electromechanical Inspector yrn Kidney disease, GFR = <60. Kidney failure, GFR = <15. The GFR estimate is not adjusted for extreme body surface area or acute process, nor has it been validated for women or ethnic groups other than and . Performed By: #### A CBC, LIPA2, CMPF #### Testing performed at [address] [address] Glucose [Mass/Vol] 119 mg/dL High 70-100 [facility] Comment on above: Result Comment: NORMAL <100 mg/dL PREDIABETES 101-126 mg/dL DIABETES 126 mg/dL or higher Performed By: #### A CBC, LIPA2, CMPF #### Testing performed at [address] [address] Potassium [Moles/Vol] 4.2 mmol/L Normal 3.5-5.1 [facility] Comment on above: Performed By: #### A CBC, LIPA2, CMPF #### Testing performed at [address] [address] Protein [Mass/Vol] 7.3 g/dL Normal 6.3-8.2 [facility] Comment on above: Performed By: #### A CBC, LIPA2, CMPF #### Testing performed at [address] [address] Sodium [Moles/Vol] 138 mmol/L Normal 137-145 [facility] Comment on above: Performed By: #### A CBC, LIPA2, CMPF #### Testing performed at [address] [address] Urea nitrogen [Mass/Vol] 8 mg/dL Normal 7-20 [facility] Comment on above: Performed By: #### A CBC, LIPA2, CMPF #### Testing performed at [address] [address] CNPNon 11-02-2022 CNPN Normal [facility] METABOLIC PANE Nestor 11-02-2022 Albumin [Mass/Vol] 4.4 G/dl 3.5 - 5.0 G/dl [facility] Albumin/Globulin [Mass ratio] 1.5 {ratio} RATIO [facility] ALP [Catalytic activity/Vol] 87 U/L [facility] ALT [Catalytic activity/Vol] 22 U/L NINF [facility] AST [Catalytic activity/Vol] 34 U/L [facility] Bilirubin [Mass/Vol] 0.4 mg/dL [facility] Calcium [Mass/Vol] 9.0 mg/dL [facility] Chloride [Moles/Vol] 106 mmol/L [facility] Comment on above: Please note: Triglyc eride levels of 600mg/dL or higher may positively bias chloride results by approximately 2.1 mmol CO2 [Moles/Vol] 22 mmol/L [facility] Creatinine [Mass/Vol] 0.80 mg/dL [facility] GFR COMMENT Average GFR for 30-3 9 years old = 107. [facility] Comment on above: Chronic Kidney disea se, GFR = <60. Kidney failure, GFR = <15. The GFR estimate is not adjusted for extreme body surface area or acute process, nor has it been validated for women or ethnic groups other than and . GFR/1.73 sq M.predicted among blacks MDRD (S/P/Bld) [Vol rate/Area] 106 mL/min/{1.73_m2} ml/min/1.73sq. m [facility] GFR/1.73 sq M.predicted among non-blacks MDRD (S/P/Bld) [Vol rate/Area] 88 mL/min/{1.73_m2} ml/min/1.73sq. m [facility] Glucose post fast [Mass/Vol] 119 mg/dL High [facility] Comment on above: NORMAL <100 mg/dL PREDIABETES 101-126 mg/dL DIABETES 126 mg/dL or higher Interpretation and review of laboratory results Abnormal [facility] Potassium [Moles/Vol] 4.2 mmol/L [facility] Protein [Mass/Vol] 7.3 g/dL [facility] Sodium [Moles/Vol] 138 mmol/L [facility] Urea nitrogen [Mass/Vol] 8 mg/dL [facility] HCG ( test) Ql (U)o n 11-02-2022 [facility] HCG QUALITATIVE, URINEon HCG ( test) Ql (U) Negative NEGATIVE [facility] LACTATE, BLOODon 11-02-2022 Lactate [Moles/Vol] 1.3 mmol/L 0.7 - 2. 0 mmol/L [facility] LACTATE,BLOODon 11-02-2022 Lactate [Moles/Vol] 1.3 mmol/L Normal 0.7-2.0 [facility] Comment on above: Performed By: #### L ACTAC #### Testing performed at [address] [address] LIPASEon 11-02-2022 Lipase [Catalytic activity/Vol] 105 U/L 23 - 300 U/L [facility] LIPASE,SERUMon 11-02-2022 LIPASE,SERUM 105 U/L Normal 23-300 [facility] Comment on above: Performed By: #### A CBC, LIPA2, CMPF #### Testing performed at [address] [address] No Panel Informationon 11-02 [facility] RAD - MISCon 11-02-2022 RAD - MISC [id number] [facility] URINALYSIS, MACROon 11-03-19 23 Bilirubin Ql (U) Negative NEGATIVE [facility] Clarity (U) CLEAR CLEAR [facility] Color (U) YELLOW YELLOW [facility] Glucose Test strip (U) [Mass/Vol] Negative NEGATIVE mg/dl [facility] Hemoglobin Ql (U) Negative NEGATIVE [facility] Interpretation and review of laboratory results Abnormal [facility] Ketones (U) [Mass/Vol] Negative NEGATIVE mg/dl [facility] Leukocyte esterase Test strip Ql (U) Negative NEGATIVE [facility] Nitrite Ql (U) Negative NEGATIVE [facility] pH (U) 8.5 [pH] High 5.0 - 7.0 [facility] Protein Ql (U) Negative NEGATIVE mg/dl [facility] Specific gravity (U) [Rel density] 1.020 1.010 - 1.025 [facility] Urobilinogen (U) [Mass/Vol] 1.0 mg/dL [facility] URINE HCG QUALon 11-02-2022 Beta HCG ( test) Ql (U) Negative Normal NEGATIVE [facility] Comment on above: Performed By: #### U HCGT, UMAC #### Testing performed at [address] [address] URINE MACROSCOPICon 11-03-19 23 Bilirubin Ql (U) Negative Normal NEGATIVE [facility] Comment on above: Performed By: #### U HCGT, UMAC #### Testing performed at [address] [address] Clarity (U) CLEAR Normal CLEAR [facility] Comment on above: Performed By: #### U HCGT, UMAC #### Testing performed at [address] [place] [address] Color (U) YELLOW Normal YELLOW [facility] [facility] Comment on above: Performed By: #### U HCGT, UMAC #### Testing performed at [address] [place] [address] Glucose Ql (U) Negative Normal NEGATIVE [facility] Comment on above: Performed By: #### U HCGT, UMAC #### Testing performed at [address] [place] [address] pH (U) 8.5 [pH] High 5.0-7.0 [facility] Comment on above: Performed By: #### U HCGT, UMAC #### Testing performed at [address] [place] [address] URINE HEMOGLOBIN Negative Normal NEGATIVE [facility] Comment on above: Performed By: #### U HCGT, UMAC #### Testing performed at [address] [place] [address] URINE KETONE Negative Normal NEGATIVE [facility] Comment on above: Performed By: #### U HCGT, UMAC #### Testing performed at [address] [place] [address] URINE LEUKOTEST Negative Normal NEGATIVE [facility] Comment on above: Performed By: #### U HCGT, UMAC #### Testing performed at [address] [address] URINE NITRATES Negative Normal NEGATIVE [facility] Comment on above: Performed By: #### U HCGT, UMAC #### Testing performed at [address] [place] [address] URINE SPEC GRAVITY 1.020 Normal 1.010-1.025 [facility] Comment on above: Performed By: #### U HCGT, UMAC #### Testing performed at [address] [address] URINE TOTAL PROTEIN Negative Normal NEGATIVE [facility] Comment on above: Performed By: #### U HCGT, UMAC #### Testing performed at [address] [address] Urobilinogen Qn (U) 1.0 {Munir'U}/dL Normal 0.2-1.0 [facility] Comment on above: Performed By: #### U HCGT, UMAC #### Testing performed at [address] [address] CBC with Auto Differentialon 10-31-2022 Basophils (Bld) [#/Vol] [facility] Basophils/100 WBC (Bld) 0 % 0 - 2 % [facility] Eosinophils (Bld) [#/Vol] 0.03 10*3/uL [facility] Eosinophils/100 WBC (Bld) 0 % Low 1 - 4 % [facility] Erythrocyte distribution width (RBC) [Ratio] 12.8 % 11.8 - 14.4 % [facility] Hematocrit (Bld) [Volume fraction] 38.9 % 36.3 - 47.1 % [facility] Hemoglobin (Bld) [Mass/Vol] 13.3 g/dL 11.9 - 15.1 g/dL [facility] Immature granulocytes (Bld) [#/Vol] [facility] Immature granulocytes/100 WBC (Bld) 0 % 0 [facility] Interpretation and review of laboratory results Abnormal [facility] Lymphocytes/100 WBC (Bld) 19 % Low 24 - 43 % [facility] Lymphocytes/100 WBC (Bld) 1.46 % [facility] MCH (RBC) [Entitic mass] 30.6 pg 25.2 - 33.5 pg [facility] MCHC (RBC) [Mass/Vol] 34.2 g/dL 28.4 - 34.8 g/dL [facility] MCV (RBC) [Entitic vol] 89.4 fL 82.6 - 102.9 fL [facility] Monocytes/100 WBC (Bld) 5 % 3 - 12 % [facility] Monocytes/100 WBC (Bld) 0.41 % [facility] Neutrophils/100 WBC (Bld) 76 % High 36 - 65 % [facility] Nucleated RBC/100 WBC (Bld) [Ratio] 0.0 % 0.0 per 100 WBC [facility] Platelet mean volume (Bld) [Entitic vol] 12.0 fL 8.1 - 13.5 fL [facility] Platelets (Bld) [#/Vol] 246 10*3/uL [facility] RBC (Bld) [#/Vol] 4.35 10*6/uL 3.95 - 5.1 1 m/uL [facility] Segmented neutrophils/100 WBC (Bld) 5.66 % [facility] WBC other (Bld) [#/Vol] 7.6 [facility] CBC with Diffon 10-31-2022 Abs. Basophil <0.03 Normal 0.00-0.20 [facility] Comment on above: Performed By: #### L JUDITH BROWN, CDP #### [facility] [address] [place] [address] [place] [address] Otr Driver: Baldomero Espinoza MD Abs.Imm.Granulocyte <0.03 Normal 0.00-0.30 [facility] Comment on above: Performed By: #### L KEVIN CP, CDP #### [address] [place] [phone] Otr Driver: Baldomero Espinoza MD Abs.Neutrophil (Seg) 5.66 k/uL Normal 1.50-8.10 [facility] Comment on above: Performed By: #### L KEVIN CP, CDP #### [address] [place] [phone] Otr Driver: Baldomero Espinoza MD Basophils/100 WBC (Bld) 0 % Normal 0-2 [facility] Comment on above: Performed By: #### L KEVIN CP, CDP #### [address] [place], [facility]83 Otr Driver: Baldomero Espinoza MD Eosinophils (Bld) [#/Vol] 0.03 10*3/uL Normal 0.00-0.44 [facility] Comment on above: Performed By: #### L IP, CP, CDP #### [facility] [address] [place] [address] Dr. [place], [facility]83 Otr Driver: Baldomero Espinoza MD Eosinophils/100 WBC (Bld) 0 % Low 1-4 [facility] Comment on above: Performed By: #### L IP, CP, CDP #### [address] [place] [address] Otr Driver: Baldomero Espinoza MD Erythrocyte distribution width (RBC) [Ratio] 12.8 % Normal 11.8-14.4 [facility] Comment on above: Performed By: #### L IP, CP, CDP #### [address] [place], [place] [address] Otr Driver: Baldomero Espinoza MD Hematocrit (Bld) [Volume fraction] 38.9 % Normal 36.3-47.1 [facility] Comment on above: Performed By: #### L IP, CP, CDP #### [address] [place], [facility]83 Otr Driver: Baldomero Espinoza MD Hemoglobin (Bld) [Mass/Vol] 13.3 g/dL Normal 11.9-15.1 [facility] Comment on above: Performed By: #### L IP, CP, CDP #### [address] [place], [facility]83 Otr Driver: Baldomero Espinoza MD Immature granulocytes/100 WBC (Bld) 0 % Normal 0 [facility] Comment on above: Performed By: #### L IP, CP, CDP #### [address] [place] [phone] Otr Driver: Baldomero Espinoza MD Lymphocytes (Bld) [#/Vol] 1.46 10*3/uL Normal 1.10-3.70 [facility] Comment on above: Performed By: #### L IP, CP, CDP #### [facility] [address] [place], [place] [phone] Otr Driver: Baldomero Espinoza MD Lymphocytes/100 WBC (Bld) 19 % Low 24-43 [facility] Comment on above: Performed By: #### L IP, CP, CDP #### [facility] [address] [place] [address] Otr Driver: Baldomero Espinoza MD MCH (RBC) [Entitic mass] 30.6 pg Normal 25.2-33.5 [facility] Comment on above: Performed By: #### L IP, CP, CDP #### [address] [place], [facility]73 ( Otr Driver: Baldomero Espinoza MD MCHC (RBC) [Mass/Vol] 34.2 g/dL Normal 28.4-34.8 [facility] Comment on above: Performed By: #### L IP, CP, CDP #### [address] [place], [place] [phone] Otr Driver: Baldomero Espinoza MD MCV (RBC) [Entitic vol] 89.4 fL Normal 82.6-102.9 [facility] Comment on above: Performed By: #### L IP, CP, CDP #### [facility] [address] [place] [address] [place] [address] Otr Driver: Baldomero Espinoza MD Monocytes (Bld) [#/Vol] 0.41 10*3/uL Normal 0.10-1.20 [facility] Comment on above: Performed By: #### L IP, CP, CDP #### [facility] [address] [place] [address] [place], [place] [phone] Otr Driver: Baldomero Espinoza MD Monocytes/100 WBC (Bld) 5 % Normal 3-12 [facility] Comment on above: Performed By: #### L KEVIN CP, CDP #### [facility] [address] [place], [place] [phone] Otr Driver: Baldomero Espinoza MD Neutrophil (Seg) 76 % High 36-65 [facility] Comment on above: Performed By: #### L KEVIN CP, CDP #### [facility] [address] [place], [place] [phone] Otr Driver: Baldomero Espinoza MD NRBC Automated 0.0 per 100 WBC Normal 0.0 [facility] Comment on above: Performed By: #### L KEVIN CP, CDP #### [facility] [address] [place], [place] [phone] Otr Driver: Baldomero Espinoza MD Platelet mean volume (Bld) [Entitic vol] 12.0 fL Normal 8.1-13.5 [facility] Comment on above: Performed By: #### L JUDITH BROWN, CDP #### [address] [place], [place] [phone] Otr Driver: Baldomero Espinoza MD Platelets (Bld) [#/Vol] 246 10*3/uL Normal 138-453 [facility] Comment on above: Performed By: #### L KEVIN CP, CDP #### [facility] [address] [place] [address] [place] [address] Otr Driver: Baldomero Espinoza MD RBC (Bld) [#/Vol] 4.35 10*6/uL Normal 3.95-5.11 [facility] Comment on above: Performed By: #### L KEVIN CP, CDP #### [facility] [address] [place] [address] Otr Driver: Baldomero Espinoza MD WBC (Bld) [#/Vol] 7.6 10*3/uL Normal 3.5-11.3 [facility] Comment on above: Performed By: #### L IP, CP, CDP #### [facility] [address] [place] [address] Otr Driver: Baldomero Espinoza MD [facility] 10-31-2022 Albumin [Mass/Vol] 4.5 g/dL 3.5 - 5.2 g/dL [facility] Albumin/Globulin [Mass ratio] 1.7 {ratio} 1.0 - 2.5 [facility] ALP [Catalytic activity/Vol] 76 U/L 35 - 104 U/L [facility] ALT [Catalytic activity/Vol] 14 U/L 5 - 33 U/L [facility] Anion gap [Moles/Vol] 12 mmol/L 9 - 17 mmol/L [facility] AST [Catalytic activity/Vol] 24 U/L NINF - 32 U/L [facility] Bilirubin [Mass/Vol] 0.3 mg/dL 0.3 - 1 .2 mg/dL [facility] Calcium [Mass/Vol] 9.1 mg/dL 8.6 - 10. 4 mg/dL [facility] Chloride [Moles/Vol] 106 mmol/L 98 - 10 7 mmol/L [facility] CO2 [Moles/Vol] 18 mmol/L Low 20 - 31 mmol/L [facility] Creatinine [Mass/Vol] 0.7 mg/dL 0.5 - 0.9 mg/dL [facility] GFR/1.73 sq M.predicted MDRD (S/P/Bld) [Vol rate/Area] - PINF [facility] Comment on above: These results are not intended for use in patients <18 years of age. eGFR results are calculated without a race factor using the 2020 CKD-EPI equation. Careful clinical correlation is recommended, particularly when comparing to results calculated using previous equations. The CKD-EPI equation is less accurate in patients with extremes of muscle mass, extra-renal metabolism of creatine, excessive creatine ingestion, or following therapy that affects renal tubular secretion. Glucose [Mass/Vol] 87 mg/dL 70 - 99 mg/dL [facility] Interpretation and review of laboratory results Abnormal [facility] Potassium [Moles/Vol] 3.8 mmol/L 3.7 - 5.3 mmol/L [facility] Protein [Mass/Vol] 7.2 g/dL 6.4 - 8.3 g/dL [facility] Sodium [Moles/Vol] 136 mmol/L 135 - 144 mmol/L [facility] Urea nitrogen [Mass/Vol] 7 mg/dL 6 - 20 mg/dL [facility] Urea nitrogen/Creatinine [Mass ratio] 10 mg/mg 9 - 20 [facility] Comp Metabolic Profon 2022 Albumin [Mass/Vol] 4.5 g/dL Normal 3.5-5.2 [facility] Comment on above: Performed By: #### L IP CP, CDP #### [facility] [address] [place] [address] [place] [address] Otr Driver: Baldomero Espinoza MD Albumin/Glob Ratio 1.7 Normal 1.0-2.5 [facility] Comment on above: Performed By: #### L KEVIN CP, CDP #### [address] [place] [address] Otr Driver: Baldomero Espinoza MD Alkaline Phos 76 U/L Normal 35-104 [facility] Comment on above: Performed By: #### L KEVIN CP, CDP #### [facility] [address] [place] [address] [place] [address] Otr Driver: Baldomero Espinoza MD ALT [Catalytic activity/Vol] 14 U/L Normal 5-33 [facility] Comment on above: Performed By: #### L KEVIN CP, CDP #### [address] [place] [address] Otr Driver: Baldomero Espinoza MD Anion gap [Moles/Vol] 12 mmol/L Normal 9-17 [facility] Comment on above: Performed By: #### L IP CP, CDP #### [facility] [address] [place], [place] [phone] Otr Driver: Baldomero Espinoza MD AST [Catalytic activity/Vol] 24 U/L Normal <32 [facility] Comment on above: Performed By: #### L IP, CP, CDP #### [facility] [address] [place] [address] [place], [place] [phone] Otr Driver: Baldomero Espinoza MD Bilirubin [Mass/Vol] 0.3 mg/dL Normal 0.3-1.2 [facility] Comment on above: Performed By: #### L IP, CP, CDP #### [address] [place], [place] [phone] Otr Driver: Baldomero Espinoza MD BUN/CRE Ratio 10 Normal 9-20 [facility] Comment on above: Performed By: #### L IP, CP, CDP #### [facility] [address] [place] [address] [place], [place] [phone] Otr Driver: Baldomero Espinoza MD Calcium [Mass/Vol] 9.1 mg/dL Normal 8.6-10.4 [facility] Comment on above: Performed By: #### L IP, CP, CDP #### [address] [place], [place] [phone] Otr Driver: Baldomero Espinoza MD Chloride [Moles/Vol] 106 mmol/L Normal 98-107 [facility] Comment on above: Performed By: #### L IP, CP, CDP #### [facility] [address] [place] [address] [place], [place] [phone] Otr Driver: Baldomero Espinoza MD CO2 [Moles/Vol] 18 mmol/L Low 20-31 [facility] Comment on above: Performed By: #### L IP, CP, CDP #### [facility] [address] [place] [address] [place], [place] [phone] Otr Driver: Baldomero Espinoza MD Creatinine [Mass/Vol] 0.7 mg/dL Normal 0.5-0.9 [facility] Comment on above: Performed By: #### L IP CP, CDP #### [address] [place] [address] Otr Driver: Baldomero Espinoza MD GFR/1.73 sq M.predicted among non-blacks MDRD (S/P/Bld) [Vol rate/Area] mL/min/{1.73_m2} Normal >60 [facility] Comment on above: Result Comment: These results are not intended for use in patients <18 years of age. eGFR results are calculated without a race factor using the 2020 CKD-EPI equation. Careful clinical correlation is recommended, particularly when comparing to results calculated using previous equations. The CKD-EPI equation is less accurate in patients with extremes of muscle mass, extra-renal metabolism of creatine, excessive creatine ingestion, or following therapy that affects renal tubular secretion. Performed By: #### L KEVIN CP, CDP #### [address] [place] [address] Otr Driver: Baldomero Espinoza MD Glucose [Mass/Vol] 87 mg/dL Normal 70-99 [facility] Comment on above: Performed By: #### L KEVIN CP, CDP #### [address] [place] [address] Otr Driver: Baldomero Espinoza MD Potassium [Moles/Vol] 3.8 mmol/L Normal 3.7-5.3 [facility] Comment on above: Performed By: #### L IP CP, CDP #### [address] [place] [address] Otr Driver: Baldomero Espinoza MD Protein [Mass/Vol] 7.2 g/dL Normal 6.4-8.3 [facility] Comment on above: Performed By: #### L IP CP, CDP #### [address] [place] [address] Otr Driver: Baldomero Espinoza MD Sodium [Moles/Vol] 136 mmol/L Normal 135-144 [facility] Comment on above: Performed By: #### L JUDITH BROWN, CDP #### [facility] [address] [place] [address] Otr Driver: Baldomero Espinoza MD Urea nitrogen [Mass/Vol] 7 mg/dL Normal 6-20 [facility] Comment on above: Performed By: #### L JUDITH BRONW, CDP #### [facility] [address] [place] [address] Otr Driver: Baldomero Espinoza MD Lipaseon 10-31-2022 Lipase [Catalytic activity/Vol] 43 U/L Normal 13-60 [facility] Comment on above: Performed By: #### L JUDITH BROWN, CDP #### [facility] [address] [place] [address] Otr Driver: Baldomero Espinoza MD Lipase [Catalytic activity/Vol] 43 U/L 13 - 60 U/L [facility] Microscopic Urinalysison Bacteria LM Ql (Urine sed) 1+ Abnormal None [facility] Epithelial cells LM.HPF (Urine sed) [#/Area] 2 TO 5 [facility] Interpretation and review of laboratory results Abnormal [facility] RBC LM.HPF (Urine sed) [#/Area] None [facility] WBC LM.HPF (Urine sed) [#/Area] None [facility] No Panel Informationon 10-31 [facility] UA w/Reflex Cultureon 2022 Bilirubin, SemiQt,Ur Negative Normal NEG [facility] Comment on above: Performed By: #### U LAURENO UAX ####[facility] [place] [address] Lab Director: Baldomero Espinoza MD Blood, Urine Negative Normal NEG [facility] Comment on above: Performed By: #### U LAURENO UAX ####[address] [place] [address] Lab Director: Baldomero Espinoza MD Clarity (U) Clear Normal CLEAR [facility] Comment on above: Performed By: #### U MICAO, UAX ####[address] [place] [address] Lab Director: Baldomero Espinoza MD Color (U) Yellow Normal YEL [facility] Comment on above: Performed By: #### U MICAO, UAX ####[address] [place] [address] Lab Director: Baldomero Espinoza MD Glucose Ql (U) Negative Normal NEG [facility] Hospital Comment on above: Performed By: #### U MICAO, UAX ####[address] [place] [address] Lab Director: Baldomero Espinoza MD Ketones Ql (U) Negative Normal NEG [facility] Comment on above: Performed By: #### U MICAO, UAX ####[address] [place] [address] Lab Director: Baldomero Espinoza MD Leukocyte esterase Test strip Ql (U) Negative Normal NEG [facility] Comment on above: Performed By: #### U MICAO, UAX ####[address] [place] [address] Lab Director: Baldomero Espinoza MD Nitrite,Ur Negative Normal NEG [facility] Comment on above: Performed By: #### U MICAO, UAX ####[address] , [place] [id number] Lab Director: Baldomero Espinoza MD PH,Ur 7.0 Normal 5.0-9.0 [facility] Comment on above: Performed By: #### U MICAO, UAX ####[address] , [place] [phone] [facility] Director: Baldomero Espinoza MD Protein Ql (U) Negative Normal NEG [facility] Comment on above: Performed By: #### U MICAO, UAX ####[facility] , [place] [phone] lab Director: Baldomero Espinoza MD Spec. [place],Ur 1.015 Normal 1.010-1.020 [facility] Comment on above: Performed By: #### U MICAO, UAX ####[address] , [place] [phone] lab Director: Baldomero Espinoza MD Urobilinogen,Ur Normal Normal 0.0-1.0 [facility] Comment on above: Performed By: #### U MICAO, UAX ####[address] , [place] [id number] lab Director: Baldomero Espinoza MD Urinalysis with Reflex to Cu ltureon 10-31-2022 Bilirubin Ql (U) Negative NEGATIVE [facility] Clarity (U) Clear Clear [facility] Color (U) Yellow Yellow [facility] Glucose Test strip (U) [Mass/Vol] Negative NEGATIVE mg/dL [facility] Hemoglobin Auto test strip Ql (U) Negative NEGATIVE [facility] Ketones (U) [Mass/Vol] Negative NEGATIVE mg/dL [facility] Leukocyte esterase Test strip Ql (U) Negative NEGATIVE [facility] Nitrite Ql (U) Negative NEGATIVE [facility] pH (U) 7.0 [pH] 5.0 - 9.0 [facility] Protein (U) [Mass/Vol] Negative NEGATIVE mg/dL [facility] Specific gravity (U) [Rel density] 1.015 1.010 - 1.020 [facility] Urobilinogen Qn (U) Normal 0.0 - 1. 0 EU/dL [facility] Urinalysis,Microon 3 Bacteria 1+ Abnormal NONE [facility] Comment on above: Performed By: #### U MICAO, UAX ####[facility] [place] [address] Lab Director: Baldomero Espinoza MD Epithelial cells LM Ql (Urine sed) 2 TO 5 Normal 0-25 [facility] Comment on above: Performed By: #### U MICAO, UAX ####[facility] [place] [address] lab Director: Baldomero Espinoza MD Urine RBC's None Normal 0-2 [facility] Comment on above: Performed By: #### U MICAO, UAX ####[address] [place] [address] lab Director: Baldomero Espinoza MD Urine WBC's None Normal 0-5 [facility] Comment on above: Performed By: #### U MICAO, UAX ####[address] [place] [address] lab Director: Baldomero Espinoza MD XR LUMBAR SPINE (MIN 4 VIEWS )on 10-31-2022 XR LUMBAR SPINE (MIN 4 VIEWS) EXAMINATION: 5 XRAY VIEWS OF THE LUMBAR SPINE 10/31/2022 7:36 am COMPARISON: CT abdomen pelvis from 07/27/2021 HISTORY: ORDERING SYSTEM PROVIDED HISTORY: Back pain TECHNOLOGIST PROVIDED HISTORY: Back pain 32-year-old female with lower back pain FINDINGS: Lumbar spine is imaged from superior endplate of T9 to the lower coccyx on the lateral views. Mild anterior wedging of lower thoracic vertebral bodies, similar to the previous study. No acute vertebral body height loss or malalignment. Prior cholecystectomy. Moderate stool burden. No obvious pars defects. No obvious coccygeal deformity. Pedicles symmetric in appearance. Bilateral SI joints appear patent. Visualized sacral arcuate lines appear intact. Pelvic phleboliths. IMPRESSION: 1. No acute vertebral body height loss or malalignment within the lumbar spine. 2. Mild anterior wedging of lower thoracic vertebral bodies, similar to the prior CT of 07/27/2021. 3. Prior cholecystectomy. Moderate stool burden. Interpreted by: Luis E Regalado MD Signed by: Luis E Regalado MD 10/31/22 Final result Normal [facility] 1. No acute vertebra l body height loss or malalignment within the lumbar spine. 2. Mild anterior wedging of lower thoracic vertebral bodies, similar to the prior CT of 07/27/2021. 3. Prior cholecystectomy. Moderate stool burden. [facility] EXAMINATION: 5 XRAY VIEWS OF THE LUMBAR SPINE 10/31/2022 7:36 am COMPARISON: CT abdomen pelvis from 07/27/2021 HISTORY: ORDERING SYSTEM PROVIDED HISTORY: Back pain TECHNOLOGIST PROVIDED HISTORY: Back pain 32-year-old female with lower back pain FINDINGS: Lumbar spine is imaged from superior endplate of T9 to the lower coccyx on the lateral views. Mild anterior wedging of lower thoracic vertebral bodies, similar to the previous study. No acute vertebral body height loss or malalignment. Prior cholecystectomy. Moderate stool burden. No obvious pars defects. No obvious coccygeal deformity. Pedicles symmetric in appearance. Bilateral SI joints appear patent. Visualized sacral arcuate lines appear intact. Pelvic phleboliths. [facility] Luis E Regalado MD - 10/31/2022 EXAMINATION: 5 XRAY VIEWS OF THE LUMBAR SPINE 10/31/2022 7:36 am COMPARISON: CT abdomen pelvis from 07/27/2021 HISTORY: ORDERING SYSTEM PROVIDED HISTORY: Back pain TECHNOLOGIST PROVIDED HISTORY: Back pain 32-year-old female with lower back pain FINDINGS: Lumbar spine is imaged from superior endplate of T9 to the lower coccyx on the lateral views. Mild anterior wedging of lower thoracic vertebral bodies, similar to the previous study. No acute vertebral body height loss or malalignment. Prior cholecystectomy. Moderate stool burden. No obvious pars defects. No obvious coccygeal deformity. Pedicles symmetric in appearance. Bilateral SI joints appear patent. Visualized sacral arcuate lines appear intact. Pelvic phleboliths. IMPRESSION: 1. No acute vertebral body height loss or malalignment within the lumbar spine. 2. Mild anterior wedging of lower thoracic vertebral bodies, similar to the prior CT of 07/27/2021. 3. Prior cholecystectomy. Moderate stool burden. [facility] Radiology Study observation (narrative) [facility] XR LUMBAR SPINE (MIN 4 VIEWS )Ordered By: Luis E Regalado on 10-31-2022 [facility] Work Phone: Transfer Inon 10-30-2022 Transfer In [id number] CD:127 [address] [facility] Discharge Instructionson Discharge Instructions [id number]#1. 00CD:[address] [facility] Comment on above: Other Comment: wrong folder Population Healthon 10-30-19 Population Health Case Information Case Priority: None Programs: -- Referral Source: [place] Referral Reason: Care coordination Case Type: Transition Care Management Risk Score: -- Case Status: Enrolled (October 29, 2022) Date Assigned: October 29, 2022 Assigned By: Raegan Felder Date Enrolled: October 29, 2022 Assigned Primary Personnel: Raegan Felder Assigned Secondary Personnel: Araceli PRICE, Gita Case Physician: Jaquan Paula Problems Ongoing Abnormal thyroid blood test Arthritis Asthma BMI 30.0-30.9,adult Depression Gall stone Hyperthyroidism Kidney cysts Kidney stone LUQ pain Mixed incontinence urge and stress Nausea Rash of body Renal cyst Right flank pain Historical Allergic rhinitis Anemia Hypothyroidism Metabolic syndrome PCOS- polycystic ovary syndrome Procedure/Surgical History Revision (01/29/2022), Gastric sleeve (02/15/2021), Esophagogastroduodenos copy (01/20/2021), Hysterectomy (11/04/2020), Appendectomy, Cholecystectomy, Colonoscopy. Home Medications Antivert 12.5 mg Tab, 12.5 mg= 1 tab(s), Oral, TID, PRN Carafate 1 g/10 mL Susp-Oral, 1 gm= 10 mL, Oral, QID escitalopram 20 mg Tab, 20 mg= 1 tab(s), Oral, Daily levothyroxine 100 mcg (0.1 mg) Tab, 100 mcg= 1 tab(s), Oral, Daily, 1 refills liothyronine 5 mcg Tab, 5 mcg, Oral, Daily, 1 refills mirtazapine 15 mg Tab, 15 mg= 1 tab(s), Oral, Once a day (at bedtime) nitrofurantoin macrocrystals-monohydr ate 100 mg Cap, 100 mg= 1 cap(s), Oral, BID ondansetron 4 mg Dis Tab, 4 mg= 1 tab(s), Oral, q6hr promethazine 25 mg Tab, 25 mg= 1 tab(s), Oral, TID tamsulosin 0.4 mg Cap, 0.4 mg= 1 cap(s), Oral, Daily Topamax 100 mg Tab, Oral, BID traMADOL 50 mg Tab, 50 mg= 1 tab(s), Oral, q12hr, PRN Zofran 4 mg Tab, 4 mg= 1 tab(s), Oral, q6hr, PRN Allergies NSAIDs (Unknown) codeine (unknown) Social History Alcohol - Denies Alcohol Use, 12/20/2020 Substance Abuse - Denies Substance Abuse, 12/20/2020 Tobacco - Denies Tobacco Use, 12/20/2020 Never (less than 100 in lifetime) Tobacco Use:. Never Smokeless Tobacco Use:. Ready to change: No. Household tobacco concerns: No., 10/07/2022 Family History Alcoholism: Brother. Asthma: Brother. Diabetes clinic: Father. Diabetes mellitus type 2: Mother. High cholesterol: Mother. Hypertension: Mother, Father and Brother. Hypothyroidism: Father. Kidney stone: Brother. Mitral valve disorder: Negative: Father. Screenings and Assessments 10/29/22 10:40:00 Result Name Value Comment Phone Call Monitoring Consent Agreed to continue call Phone Verification Patient Information Full name, street address and date of verified CM Program Enrollment Provides verbal consent for enrollment Goals and Interventions Care Plan Progress Note Admit Date: 10/25/2022 Date of Discharge: 10/28/2022 Follow-up appointment scheduled? 11/03/2022 @1100 Did you understand your discharge instructions? yes Are you able to follow them? yes Did you receive new medications? Reglan 5mg TID AC/, QHS Have you filled the Rx's? yes Are you taking them as prescribed? yes Are you having difficulty eating or swallowing your pills? no Are you having any stomach upset, diarrhea or constipation? no How are you sleeping? no Are you having any pain? 7/10 kidney stones Do you have everything you need at home to care for yourself? yes Do you have Home Health? no Called patient for Transitional Care Management following hospitalization for kidney/abdominal pain, N/V . Patient is risk for readmission. Reviewed discharge instructions and medications reconciled with patient, discharge list and EHR. Reviewed purpose and side effects of new medications. Patient states that she is doing alright.' is currently having heart palpations. States that activity makes these worse and that the only time she experiences any relief is by sitting n a chair with legs drawn up yo chest. States has a follow up with Dr. Strange on 11/19 but is going to get that moved up after appt. with Olinda Morrow. Patient also has a kidney stone which is causing her pain 08/24. Currently taking Tramadol and Flomax as directed to relieve symptom. Denies problems eating, drinking, or with bowels or bladder. endorses difficulty sleeping d/t heart palpitations which wake her up. Pt has the following f/u appts. scheduled: 11/03/2022 @ 11Albert Morrow, 11/04/2022 @ [address] @1420, estela Thacker @0830, Carito Revelesian 1030, [facility] [place] 0830, Wong Duran @ 0700. Denes other needs or concerns at this time. TCM services explained and direct phone number given. Communication Events Date: October 29, 2022 Method: Phone call Type: Outbound Duration (min): 11 Outcome: Case discussion Contact Type: care transition coordinator Contact Name: Raegan Felder Notes: TCM-#1. see FT summary Created By: Raegan Felder Date: October 29, 2022 Method: Phone call Type: Outbound Duration (min): 1 (more content not included)... Normal [facility] Auth for Release of Medical Recordson 10-28-2022 Auth for Release of Medical Records [id number]#1.00 CD:[address] [facility] CBC panel Auto (Bld)on 10-28 Erythrocyte distribution width (RBC) [Ratio] 13.2 % Normal 11.5-15.0 [facility] Comment on above: Order Comment: Speci men Type: BLOOD SPECIMENOrdering Facility: [facility] Address: [address] [address] Performed By: #### 5 8410-2 ####[facility] [id number] [place] [address] [place] Hematocrit (Bld) [Volume fraction] 33.4 % Low 36.0-46.0 [facility] Comment on above: Order Comment: Speci men Type: BLOOD SPECIMENOrdering Facility: [facility] Address: [address] [address] Performed By: #### 5 8410-2 ####[facility] [id number] [address] [place] Hemoglobin (Bld) [Mass/Vol] 10.9 g/dL Low 11.5-15.5 [facility] Comment on above: Order Comment: Speci men Type: BLOOD SPECIMENOrdering Facility: [facility] Address: [address] [address] Performed By: #### 5 8410-2 ####[facility] [id number] [address] [place] MCH (RBC) [Entitic mass] 30.4 pg Normal 26.0-34.0 [facility] Comment on above: Order Comment: Speci men Type: BLOOD SPECIMENOrdering Facility: [facility] Address: [address] [address] Performed By: #### 5 8410-2 ####[facility] [id number] [place] [address] [place] MCHC (RBC) [Mass/Vol] 32.6 g/dL Normal 30.5-36.0 [facility] Comment on above: Order Comment: Speci men Type: BLOOD SPECIMENOrdering Facility: [facility] Address: [address] [address] Performed By: #### 5 8410-2 ####[facility] [id number] [place] [address] [place] MCV (RBC) [Entitic vol] 93.3 fL Normal 80.0-100.0 [facility] Comment on above: Order Comment: Speci men Type: BLOOD SPECIMENOrdering Facility: [facility] Address: [address] Performed By: #### 5 8410-2 ####[facility] LABORATORYIA [id number] [place] [address] [place] Nucleated RBC (Bld) [#/Vol] 10*3/uL Normal <0.01 [facility] Comment on above: Order Comment: Speci men Type: BLOOD SPECIMENOrdering Facility: [facility] Address: [address] Performed By: #### 5 8410-2 ####[facility] [id number] [place] [address] [place] Platelet mean volume (Bld) [Entitic vol] 11.7 fL Normal 9.0-12.7 [facility] Comment on above: Order Comment: Speci men Type: BLOOD SPECIMENOrdering Facility: [facility] Address: [address] [address] Performed By: #### 5 8410-2 ####[facility] [id number] [address] [place] Platelets (Bld) [#/Vol] 174 10*3/uL Normal 150-400 [facility] Comment on above: Order Comment: Speci men Type: BLOOD SPECIMENOrdering Facility: [facility] Address: [address] Performed By: #### 5 8410-2 ####[facility] [id number] [place] [address] [place] RBC (Bld) [#/Vol] 3.58 10*6/uL Low 3.90-5.20 [facility] Comment on above: Order Comment: Speci men Type: BLOOD SPECIMENOrdering Facility: [facility] Address: [address] Performed By: #### 5 8410-2 ####[facility] LABORATORYCLIA [id number] [place] [address] [facility] WBC (Bld) [#/Vol] 4.62 10*3/uL Normal 3.70-11.00 [facility] Comment on above: Order Comment: Speci men Type: BLOOD SPECIMENOrdering Facility: [facility] Address: [address] [place] [address] Performed By: #### 5 8410-2 ####[facility] LABORATORYCLIA [id number] [place] [address] [facility] CNDSon 10-28-2022 CNDS HNO ID: [id number] Author: Rayna Coyle MD Service: Hospital Medicine Author Type: Physician Type: Discharge Summary Filed: 10/28/2022 4:45 PM Note Text: DISCHARGE SUMMARY PATIENT NAME: Abbey Garcia ADMISSION DATE: 10/25/2022 DISCHARGE DATE: 10/28/2022 ATTENDING PHYSICIAN: No att. providers found Code Status: Not on file PCP: Jaquan Morrow Highest Readmission Risk Score: 17 The 30 day readmissions risk score is derived from an internally validated risk model which evaluates patient level characteristics, utilization history, medication orders and lab results up until the day of discharge. Patients with a score of 40 or above are considered highest risk for readmission. Specific patient level drivers will be listed at the bottom of the summary. TRANSITIONS OF CARE CRITICAL ISSUES: PAULA MEDICATION CHANGES: start reglan LAB MONITORING NEEDED: Not applicable IMAGING FOLLOW-UP: Not applicable LABS AND PROCEDURES PENDING AT DISCHARGE: No pending results. FOLLOW UP: PCP and bariatric surgery f/u to be scheduled REASON FOR HOSPITALIZATION: abdominal pain PRINCIPAL DIAGNOSIS: possible hypomotility SECONDARY DIAGNOSIS: Principal Problem: Abdominal pain (POA: Yes) Active Problems: GERD (gastroesophageal reflux disease) (POA: Yes) PCOS (polycystic ovarian syndrome) (POA: Yes) Asthma (POA: Yes) Constipation (POA: Yes) Acquired hypothyroidism (POA: Unknown) Essential hypertension (POA: Unknown) Peptic ulcer disease (POA: Unknown) H/O gastric bypass (POA: Unknown) Resolved Problems: Nausea and vomiting (POA: Unknown) HOSPITAL COURSE: You were admitted to the hospital for worsening abdominal pain as well as nausea and vomiting. You were seen by GI who recommended several medications as well as performing an EGD which showed some retained food products but otherwise normal results. They recommended starting Reglan due to possible hypomotility as well as follow-up with bariatric surgery. The Reglan was started with significant improvement in your symptoms. You are being discharged on October 28 with follow-up with your PCP as well as bariatric surgery to be scheduled. OPERATIONS/PROCEDURE DURING THIS HOSPITALIZATION: * No surgery found * EGD CONSULTS DURING HOSPITALIZATION: Orders Placed This Encounter Smoking Cessation Education Consult GI (PHYSICIAN CONSULT) MU FOLLOW UP PROVIDER FOR SUMMARY OF CARE - MU MEASURE PATIENT CONDITION AT DISCHARGE: Stable ADVANCE CARE PLANNING DISCUSSION (if applicable): N/A DISCHARGE DISPOSITION: Home with Self Care Discharge Physical Exam: VITAL SIGNS: BP 124/59 Pulse 84 Temp 36.5 ?C (97.7 ?F) (Oral) Resp 18 Ht 167.6 cm (5' 6 ) Wt 86.5 kg (190 lb 11.2 oz) LMP 08/19/2020 SpO2 100% BMI 30.78 kg/m? GENERAL: Alert, no distress, cooperative SKIN: Skin color, texture, turgor normal. No rashes or lesions. HEAD/SINUSES: No significant findings EYES: PERRLA, EOMI LUNGS: Lungs clear to auscultation, Good diaphragmatic excursion CARDIAC: Normal S1 and S2; no rubs, murmurs, or gallops ABDOMEN: Abdomen soft, non-tender, BS normal, No masses or organomegaly EXTREMITIES: Extremities normal, no deformities, edema, clubbing or skin discoloration. Good capillary refill., No ulcers WOUND/SURGICAL SITE CARE: None SUPPLIES OR EQUIPMENT: None DIET: Resume pre-hospital diet ACTIVITY AND EXERCISE: Resume pre-hospital activity ADDITIONAL INFORMATION: Hospital Course You were admitted to the hospital for worsening abdominal pain as well as nausea and vomiting. You were seen by GI who recommended several medications as well as performing an EGD which showed some retained food products but otherwise normal results. They recommended starting Reglan due to possible hypomotility as well as follow-up with bariatric surgery. The Reglan was started with significant improvement in your symptoms. You are being discharged on October 28 with follow-up with your PCP as well as bariatric surgery to be scheduled. FOLLOW UP APPOINTMENTS: Future Appointments Date Time Provider Department Center 10/30/2022 10:30 AM Sima Robins MD AVPROC [facility] 11/04/2022 2:20 PM Aminata Gandara MD INMAVN [facility] 11/10/2022 8:30 PM Rylee Thacker APRN.OBGYN HOSPITALIST PHYSICIAN [facility] 11/18/2022 10:30 AM Braxton Noel MD GENBMI [facility] 11/27/2022 9:30 AM [facility] [place] [facility] 02/22/2023 7:00 AM Ronaldo Nichole MD ENDOSO [facility] Solo ALLERGIES Allergen Reactions Adhesive Tape-Silic* Intolerance Sensitive to certain adhesive tapes. Redness and itchy. Codeine GI Upset Nsaids (Non-Steroid* Contraindication-Medic al Surgical S/p RYGB DISCHARGE MEDICATION: Medication List START taking these medications metoclopramide HCl 5 mg tablet Commonly known as: REGLAN Take 1 tablet by mouth before meals and at bedtime. CONTINUE taking these medications acetaminophen 500 mg tablet Commonly known as: TYLENOL Take 2 (more content not included)... Normal [facility] Comprehensive metabolic 2000 panelon 10-28-2022 Albumin [Mass/Vol] 3.2 g/dL Low 3.9-4.9 [facility] Comment on above: Order Comment: Speci men Type: BLOOD SPECIMENOrdering Facility: [facility] Address: [address] [place] [address] Performed By: #### 1 9123-9, 2777, ####[facility] LABORATORYCLIA [id number] [place] [address] [place] ALP [Catalytic activity/Vol] 54 U/L Normal 34-123 [facility] Comment on above: Order Comment: Speci men Type: BLOOD SPECIMENOrdering Facility: [facility] Address: [address] [place] [address] Performed By: #### 1 9123-9, 2777-, 92160-6 ####[facility] LABORATORYCLIA [id number] [place] [address] [place] ALT [Catalytic activity/Vol] 11 U/L Normal 7-38 [facility] Comment on above: Order Comment: Speci men Type: BLOOD SPECIMENOrdering Facility: [facility] Address: [address] [place] [address] Performed By: #### 1 9123-9, 27708-15, 45184-4 ####[facility] LABORATORYCLIA [id number] [place] [address] [place] Anion gap [Moles/Vol] 9 mmol/L Normal 9-18 [facility] Comment on above: Order Comment: Speci men Type: BLOOD SPECIMENOrdering Facility: [facility] Address: [address] [place] [address] Performed By: #### 1 9123-9, 27708-15, 40220-2 ####[facility] [id number] [place] [address] [place] AST [Catalytic activity/Vol] 23 U/L Normal 13-35 [facility] Comment on above: Order Comment: Speci men Type: BLOOD SPECIMENOrdering Facility: [facility] Address: [address] [place] [address] Performed By: #### 1 9123-9, 27708-15, 37062-3 ####[facility] [id number] [place] [address] [place] Bilirubin [Mass/Vol] 0.3 mg/dL Normal 0.2-1.3 [facility] Comment on above: Order Comment: Speci men Type: BLOOD SPECIMENOrdering Facility: [facility] Address: [address] [place] [address] Performed By: #### 1 9123-9, 27708-15, 65563-9 ####[facility] LABORATORYIA [id number] [place] [address] [place] Calcium [Mass/Vol] 8.3 mg/dL Low 8.5-10.2 [facility] ospital Comment on above: Order Comment: Speci men Type: BLOOD SPECIMENOrdering Facility: [facility] Address: [address] Performed By: #### 1 9123-9, 2776-02, ####[facility] [id number] [place] [address] [place] Chloride [Moles/Vol] 108 mmol/L High 97-105 [facility] Comment on above: Order Comment: Speci men Type: BLOOD SPECIMENOrdering Facility: [facility] Address: [address] Performed By: #### 1 9123-9, 2776-02, ####[facility] [id number] [place] [address] [place] CO2 [Moles/Vol] 21 mmol/L Low 22-[address] Comment on above: Order Comment: Speci men Type: BLOOD SPECIMENOrdering Facility: [facility] Address: [address] [place], [place] [address] Performed By: #### 1 9123-9, 2776-02, ####[facility] [id number] [place] [address] [place] Creatinine [Mass/Vol] 0.76 mg/dL Normal 0.58-0.96 [facility] Comment on above: Order Comment: Speci men Type: BLOOD SPECIMENOrdering Facility: [facility] Address: [address] Performed By: #### 1 9123-9, 2776-02, ####[facility] [id number] [place] [address] [place] Creatinine and Glomerular filtration rate.predicted panel (S/P/Bld) 106 mL/min/1.73m??? Normal >=60 [facility] Comment on above: Order Comment: Speci men Type: BLOOD SPECIMENOrdering Facility: [facility] Address: [address] [place] [address] Result Comment: Rashmi mated Glomerular Filtration Rate (eGFR) is calculated using the 2020 CKD-EPI creatinine equation. This equation utilizes serum creatinine, sex, and age as parameters. The creatinine assay has traceable calibration to isotope dilution-mass spectrometry. Refer to KDIGO guidelines for clinical interpretation. In patients with unstable renal function, e.g. those with acute kidney injury, the eGFR may not accurately reflect actual GFR. Performed By: #### 1 9123-9, 2777, ####[facility] LABORATORYCLIA [id number] [place] [address] [place] Glucose [Mass/Vol] 84 mg/dL Normal 74-99 [facility] Comment on above: Order Comment: Geraldo marrero Type: BLOOD SPECIMENOrdering Facility: [facility] Address: [address] Result Comment: The [place] Diabetes Association (ADA) provides guidance for cutoff values for fasting glucose and random glucose. The ADA defines fasting as no caloric intake for at least 8 hours. Fasting plasma glucose results between 100 to 125 mg/dL indicate increased risk for diabetes (prediabetes). Fasting plasma glucose results greater than or equal to 126 mg/dL meet the criteria for diagnosis of diabetes. In the absence of unequivocal hyperglycemia, results should be confirmed by repeat testing. In a patient with classic symptoms of hyperglycemia or hyperglycemic crisis, random plasma glucose results greater than or equal to 200 mg/dL meet the criteria for diagnosis of diabetes. Reference: Standards of Medical Care in Diabetes 2016, [place] [employer] Association. Diabetes Care. 2016.39(Suppl 1). Performed By: #### 1 9123-9, 27708-15, ####[facility] LABORATORYCLIA [id number] [place] [address] [place] Potassium [Moles/Vol] 4.1 mmol/L Normal 3.7-5.1 [facility] Comment on above: Order Comment: Specmichael men Type: BLOOD SPECIMENOrdering Facility: [facility] Address: [address] [id number] Performed By: #### 1 9123-9, 27708-15, 59323-9 ####[facility] [id number] [place] [address] [place] Protein [Mass/Vol] 5.2 g/dL Low 6.3-8.0 [facility] Comment on above: Order Comment: Speci men Type: BLOOD SPECIMENOrdering Facility: [facility] Address: [address] [place] [address] Performed By: #### 1 9123-9, 2777, ####[facility] [id number] [place] [address] [place] Sodium [Moles/Vol] 138 mmol/L Normal 136-144 [facility] Comment on above: Order Comment: Speci men Type: BLOOD SPECIMENOrdering Facility: [facility] Address: [address] [place] [address] Performed By: #### 1 9123-9, 2777, ####[facility] [id number] [place] [address] [place] Urea nitrogen [Mass/Vol] 7 mg/dL Normal 7-21 [facility] Comment on above: Order Comment: Speci men Type: BLOOD SPECIMENOrdering Facility: [facility] Address: [address] [place] [address] Performed By: #### 1 9123-9, 277, 43769-0 ####[facility] [id number] [place] [address] [place] Formson 10-28-2022 Forms [id number] 0CD:[address] [facility] Magnesium [facility] 10[facility]28 Magnesium [Mass/Vol] 1.9 mg/dL Normal 1.7-2.3 [facility] Comment on above: Order Comment: Speci men Type: BLOOD SPECIMENOrdering Facility: [facility] Address: [address] [place], [place] [address] Performed By: #### 1 9123-9, 2777-1, 63993-2 ####[facility] [id number] [place] [address] [facility] Phosphate SerPl-mCncon 10-28 Phosphate [Mass/Vol] 3.2 mg/dL Normal 2.7-4.8 [facility] Comment on above: Order Comment: Speci men Type: BLOOD SPECIMENOrdering Facility: [facility] Address: [address] [place] [address] Performed By: #### 1 9123-9, 2777-1, 79364-5 ####[facility]ENTER[facility] [id number] [place] [address] [facility] ANES POSTPROC EVALon 023 ANES POSTPROC EVAL HNO ID: [id number] Author: Jade Simental MD Service: Critical Care Author Type: Anesthesiologist Type: Anesthesia Postprocedure Evaluation Filed: 10/27/2022 1:07 PM Note Text: POST ANESTHESIA EVALUATION NOTE : 1990 Procedure Summary Date: 10/27/22 Room / Location: Procedures Anesthesia Start: 1143 Anesthesia Stop: 1157 Procedure: EGD DIAGNOSTIC Diagnosis: (Abdominal pain) Scheduled Providers: Raulito Hu MD; Jade Simental MD; Keesha Snider APRN.[employer]ION EXAMINER; Roseline Alonzo RN Responsible Provider: Jade Simental MD Anesthesia Type: MAC ASA Status: 3 Anesthesia Type: MAC Last Vitals Vitals Value Taken Time BP 101/61 10/27/22 1220 Temp 37.2 ?C (98.9 ?F) 10/27/22 1200 Pulse 60 10/27/22 1220 Resp 16 10/27/22 1220 SpO2 96 % 10/27/22 1220 Post Anesthesia Patient Status Patient Evaluation: PACU. PACU/ICU Patient Condition: stable. Anticipated Disposition: inpatient floor planned admission. Neurological Status: aware and responsive. Pulmonary Status: breathing comfortably on room air Airway Control: returned to baseline unsupported. Cardiovascular Status: stable. Pain Management: clinically adequate Postoperative Hydration: acceptable. Intraoperative Events: no significant anesthesia events Post Operative Nausea/Vomiting Status: no significant post operative nausea or vomiting Recommendation: continue current plan of care. Anesthesia Observations No Documentation SIGNATURE: Jade Simental MD PATIENT NAME: Abbey Garcia DATE: October 27, 2022 TIME: 1:07 PM CSN: [id number] [facility] ANES PRE-OPon 10-27-2022 ANES PRE-OP HNO ID: [id number] Author: Jade Simental MD Service: Critical Care Author Type: Anesthesiologist Type: Anesthesia Preprocedure Evaluation Filed: 10/27/2022 11:43 AM Note Text: ANESTHESIOLOGY DAY OF SURGERY NOTE : 1990 Procedure Information Date/Time: 10/27/22 1145 Scheduled providers: Raulito Hu MD; Jade Simental MD; Keesha Snider APRN.CREDIT UNION EXAMINER; Roseline Alonzo RN Procedure: EGD DIAGNOSTIC Location: Procedures Estimated body mass index is 31.38 kg/m? as calculated from the following: Height as of this encounter: 167.6 cm (5' 6 ). Weight as of this encounter: 88.2 kg (194 lb 7.1 oz). Most recent hematocrit and potassium results: Hematocrit 33.6 10/27/2022 Hematocrit (POCT) 36 02/03/2020 Potassium 4.1 10/27/2022 Potassium (POCT) 3.6 02/03/2020 Relevant Problems ANESTHESIA (+) RICHAR on CPAP (+) PONV (postoperative nausea and vomiting) CARDIO (+) Benign essential HTN (+) Essential hypertension ENDO (+) Acquired hypothyroidism (+) Hypothyroid GI (+) GERD (gastroesophageal reflux disease) (+) Gastric ulcer (+) Peptic ulcer disease -RENAL (+) Renal stone NEURO-PSYCH (+) History of PCOS (+) History of sleep apnea PULMONARY (+) Asthma (+) RICHAR on CPAP I - PHYSICAL EVALUATION AIRWAY Patient intubated: No. Tracheostomy tube not present Mallampati: III. TM distance: >3 FB. Neck ROM: full ROM without neurological symptoms. Mouth opening: adequate. Short neck: no. Thick neck: no DENTAL Dental findings: teeth intact. Additional exam findings: no II - ANESTHESIA PLAN ASA Score: 3 Anesthetic Plan: MAC The patient is not a current smoker. NPO Status: adequate Beta Blanka Monitoring Plan Monitoring plan: standard ASA. Post Procedure Analgesic Plan Postoperative analgesic plan: multimodal analgesia. Informed Consent Anesthetic risks, benefits, alternatives, personnel and consent discussed: yes. Patient / Responsible Alliance Party agrees to proceed: yes Patient / Surrogate agrees to blood products: blood products not planned Significant changes in the patient condition since the History and Physical, not otherwise documented in primary service progress note: no. Potential Anesthesia issues that may suggest increased risk of complications or contraindication to planned procedure: other. Risk of aspiration with current N/V Discussed the possibility of lip / dental damage: yes Vitals Value Taken Time BP 133/82 10/27/22 1140 Pulse 74 10/27/22 1140 Resp 16 10/27/22 1140 Temp 36.2 ?C (97.1 ?F) 10/27/22 1140 SpO2 100 % 10/27/22 1140 Facility-Administered Medications as of 10/27/2022 Medication Dose Route Frequency - [Held on Transfer] pantoprazole 40 mg injection (PROTONIX) 40 mg INTRAVENOUS BID AC (0600/1600) - [Held on Transfer] polyethylene glycol 3350 34 g packet 34 g ORAL BID - [Held on Transfer] senna-docusate 8.6-50 mg 1 tablet (SENNA-S) 1 tablet ORAL BID - [COMPLETED] aluminum-magnesium hydroxide-simethicone 200-200-20 mg/5 mL 30 mL 30 mL ORAL ONCE - [Held on Transfer] ondansetron (PF) 4 mg injection (ZOFRAN) 4 mg INTRAVENOUS q 6 H PRN - [Held on Transfer] morphine 1 mg injection 1 mg INTRAVENOUS q 4 H PRN - [COMPLETED] NaCl 0.9% 1,000 mL iv bolus 1,000 mL INTRAVENOUS ONCE - [COMPLETED] famotidine 20 mg injection (PEPCID) 20 mg INTRAVENOUS ONCE - [COMPLETED] aluminum-magnesium hydroxide-simethicone 200-200-20 mg/5 mL 30 mL 30 mL ORAL ONCE - [COMPLETED] ondansetron (PF) 4 mg injection (ZOFRAN) 4 mg INTRAVENOUS ONCE - [COMPLETED] morphine 4 mg injection 4 mg INTRAVENOUS ONCE - [COMPLETED] prochlorperazine 10 mg injection (COMPAZINE) 10 mg INTRAVENOUS ONCE - [Held on Transfer] liothyronine 5 mcg tab(s) (CYTOMEL) 5 mcg ORAL DAILY - [Held on Transfer] levothyroxine 100 mcg tab(s) (SYNTHROID) 100 mcg ORAL DAILY - [Held on Transfer] topiramate 100 mg tab(s) (TOPAMAX) 100 mg ORAL BID - [Held on Transfer] mirtazapine 15 mg (REMERON) 15 mg ORAL AT BEDTIME - [Held on Transfer] escitalopram oxalate 20 mg tab(s) (LEXAPRO) 20 mg ORAL DAILY - [Held on Transfer] sucralfate 1 g tab(s) (CARAFATE) 1 g ORAL QID - [Held on Transfer] acetaminophen 1,000 mg tab(s) (TYLENOL) 1,000 mg ORAL q 8 H - [Held on Transfer] hydrOXYzine HCl 25 mg tab(s) (ATARAX) 25 mg ORAL BID PRN - [Held on Transfer] ipratropium-albuterol 3 mL nebulizer solution (DUONEB) 3 mL INHALATION q 4 H PRN - [Held on Transfer] therapeutic multivitamin-minerals tablet (THERA-M PLUS) 1 tablet ORAL DAILY - [Held on Transfer] aluminum-magnesium hydroxide-simethicone 200-200-20 mg/5 mL 30 mL 30 mL ORAL q 6 H PRN - [Held on Transfer] NaCl 0.9% iv flush bag 20 mL INTRAVENOUS PRN - [Held on Transfer] NaCl 0.9% iv infusion 125 mL/hr INTRAVENOUS CONTINUOUS - [Held on Transfer] prochlorperazine 10 mg injection (COMPAZINE) 10 mg INTRAVENOUS q 6 H PRN - [Held on Transfer] albuterol 2.5 mg /3 mL (0.083 %) 2.5 mg (PROVENTIL) 2.5 mg INHALATION (more content not included)... Normal [facility] CBC panel Auto (Bld)on 10-27 Erythrocyte distribution width (RBC) [Ratio] 13.3 % Normal 11.5-15.0 [facility] Comment on above: Order Comment: Speci men Type: BLOOD SPECIMENOrdering Facility: [facility] Address: [address] [place] [address] [place] [address] Performed By: #### 5 8410-2 ####[facility] LABORATORYCLIA [id number] [address] [place] Hematocrit (Bld) [Volume fraction] 33.6 % Low 36.0-46.0 [facility] Comment on above: Order Comment: Speci men Type: BLOOD SPECIMENOrdering Facility: [facility] Address: [address] [place] [address] Performed By: #### 5 8410-2 ####[facility] [id number] [address] [place] Hemoglobin (Bld) [Mass/Vol] 10.9 g/dL Low 11.5-15.5 [facility] Comment on above: Order Comment: Speci men Type: BLOOD SPECIMENOrdering Facility: [facility] Address: [address] [place] [address] Performed By: #### 5 8410-2 ####[facility] [id number] [address] STATES OF [facility] MCH (RBC) [Entitic mass] 30.5 pg Normal 26.0-34.0 [facility] Comment on above: Order Comment: Speci men Type: BLOOD SPECIMENOrdering Facility: [facility] Address: [address] [place] [address] Performed By: #### 5 8410-2 ####[facility] [id number] [address] [place] MCHC (RBC) [Mass/Vol] 32.4 g/dL Normal 30.5-36.0 [facility] Comment on above: Order Comment: Speci men Type: BLOOD SPECIMENOrdering Facility: [facility] Address: [address] [place] [address] Performed By: #### 5 8410-2 ####[facility] [id number] [address] [place] MCV (RBC) [Entitic vol] 94.1 fL Normal 80.0-100.0 [facility] Comment on above: Order Comment: Speci men Type: BLOOD SPECIMENOrdering Facility: [facility] Address: [address] [address] Performed By: #### 5 8410-2 ####[facility]ENTERIA [id number] [place] [address] [place] Nucleated RBC (Bld) [#/Vol] 10*3/uL Normal <0.01 [facility] Comment on above: Order Comment: Speci men Type: BLOOD SPECIMENOrdering Facility: [facility] Address: [address] [address] Performed By: #### 5 8410-2 ####[facility] [id number] [place] [address] [place] Platelet mean volume (Bld) [Entitic vol] 11.7 fL Normal 9.0-12.7 [facility] Comment on above: Order Comment: Speci men Type: BLOOD SPECIMENOrdering Facility: [facility] Address: [address] [address] Performed By: #### 5 8410-2 ####[facility]ENTERIA [id number] [place] [address] [place] Platelets (Bld) [#/Vol] 160 10*3/uL Normal 150-400 [facility] Comment on above: Order Comment: Speci men Type: BLOOD SPECIMENOrdering Facility: [facility] Address: [address] Performed By: #### 5 8410-2 ####[facility] LABORATORYIA [id number] [place] [address] [place] RBC (Bld) [#/Vol] 3.57 10*6/uL Low 3.90-5.20 [facility] Comment on above: Order Comment: Speci men Type: BLOOD SPECIMENOrdering Facility: [facility] Address: [address] [address] Performed By: #### 5 8410-2 ####[facility] LABORATORYIA [id number] [place] [address] [facility] WBC (Bld) [#/Vol] 3.53 10*3/uL Low 3.70-11.00 [facility] Comment on above: Order Comment: Speci men Type: BLOOD SPECIMENOrdering Facility: [facility] Address: [address] [place] [address] Performed By: #### 5 8410-2 ####[facility] LABORATORYCLIA [id number] [facility] [address] [facility] CONSULT PROGon 10-27-2022 CONSULT PROG HNO ID: [id number] Author: Raulito Hu MD Service: Gastroenterology Author Type: Physician Type: Consult Progress Note Filed: 10/27/2022 3:55 PM Note Text: GI Update EGD 10/27/22 Impression: - Normal examined jejunum. - Tan-en-Y gastrojejunostomy with gastrojejunal anastomosis characterized by healthy appearing mucosa. - A small amount of food (residue) in the stomach. - Z-line regular, 36 cm from the incisors. - Normal esophagus. - No specimens collected. - Consider hypomotility due to finding of food residue in stomach and jejunum. Otherwise, no findings to explain symptoms Recommendation: - Return patient to hospital [facility] for ongoing care. - Resume previous diet. - Continue present medications. - The patient is not currently taking anticoagulant or antiplatelet agents. Assessment and Plan Abbey Garcia is a 32 F with a PMH significant for HTN, asthma, GERD, PUD, hypothyroidism, PCOS, obesity s/p Tan-en-Y surgery 01/2022, presenting for intractable abdominal pain, N/V, poor PO intake. -OK to continue prior meds, though carafate often has minimal benefit. -Food residue in gastric pouch raises possibility of gastric hypomotility (potentially due to post-surgical vagal nerve injury) -DC prochlorperazine and initiate Reglan 5mg PO TID and HS. The risks of extrapyramidal symptoms were discussed with the patient and she accepts these risks -At this time, would defer further inquiries to bariatric surgery team -GI will sign off Normal [facility] CONSULT PROG HNO ID: [id number] Author: Ann Anderson APRN.CNP Service: Gastroenterology Author Type: Nurse Practitioner Type: Consult Progress Note Filed: 10/27/2022 9:24 AM Note Text: Brief GI progress note Interval HPI: Pt had 4 stools yesterday, initially with some relief of symptoms but then tried piece chicken and bite of rice and felt nauseated. Some improvement with PPI and GI cocktail as well. Denies black or bloody stools 1.) Upper abdominal pain 2.) N/V 3.) Gastric bypass 4.) GERD 5.) Constipation Symptoms persist Hgb stable - no visible bleeding LFTs continue to be normal Continue PPI and carafate along with bowel regimen. NPO at this time for procedure Plan for EGD today for further evaluation, if unremarkable may consider GES Discussed case with Dr. Mayte Radford [facility] Comprehensive metabolic 2000 panelon 10-27-2022 Albumin [Mass/Vol] 3.3 g/dL Low 3.9-4.9 [facility] ospital Comment on above: Order Comment: Geraldo marrero Type: BLOOD SPECIMENOrdering Facility: [facility] Address: [address] [place] [address] Performed By: #### 2 4323-8, , 2776-02 ####[facility]ITALCLIA [id number] [place] [address] [place] ALP [Catalytic activity/Vol] 52 U/L Normal 34-123 [facility] Comment on above: Order Comment: Geraldo marrero Type: BLOOD SPECIMENOrdering Facility: [facility] Address: [address] [address] Performed By: #### 2 4323-8, , 2776-02 ####[facility] LABORATORYCLIA [id number] [place] [address] [place] ALT [Catalytic activity/Vol] 14 U/L Normal 7-38 [facility] Comment on above: Order Comment: Geraldo marrero Type: BLOOD SPECIMENOrdering Facility: [facility] Address: [address] [address] Performed By: #### 2 4323-8, , 2776-02 ####[facility] LABORATORYCLIA [id number] [place] [address] [place] Anion gap [Moles/Vol] 8 mmol/L Low 9-18 [facility] Comment on above: Order Comment: Speci men Type: BLOOD SPECIMENOrdering Facility: [facility] Address: [address] [place] [address] Performed By: #### 2 4323-8, , 2776-02 ####[facility] LABORATORYCLIA [id number] [place] [address] [place] AST [Catalytic activity/Vol] 28 U/L Normal 13-35 [facility] Comment on above: Order Comment: Speci men Type: BLOOD SPECIMENOrdering Facility: [facility] Address: [address] [place] [address] Performed By: #### 2 4323-8, , 2776-02 ####[facility]ENTERIA [id number] [place] [address] [place] Bilirubin [Mass/Vol] 0.2 mg/dL Normal 0.2-1.3 [facility] Comment on above: Order Comment: Speci men Type: BLOOD SPECIMENOrdering Facility: [facility] Address: [address] [place] [address] Performed By: #### 2 4323-8, , 2776-02 ####[facility] LABORATORYIA [id number] [place] [address] [place] Calcium [Mass/Vol] 8.1 mg/dL Low 8.5-10.2 [facility] Comment on above: Order Comment: Speci men Type: BLOOD SPECIMENOrdering Facility: [facility] Address: [address] [place] [address] Performed By: #### 2 4323-8, , 2776-02 ####[facility] LABORATORYCLIA [id number] [place] [address] [place] Chloride [Moles/Vol] 110 mmol/L High 97-105 [facility] Comment on above: Order Comment: Speci men Type: BLOOD SPECIMENOrdering Facility: [facility] Address: [address] [id number] Performed By: #### 2 4323-8, , 2776-02 ####[facility] LABORATORYCLIA [id number] [place] [address] [place] CO2 [Moles/Vol] 22 mmol/L Normal 22-30 [facility] Comment on above: Order Comment: Speci men Type: BLOOD SPECIMENOrdering Facility: [facility] Address: [address] [id number] Performed By: #### 2 4323-8, , 2776-02 ####[facility] LABORATORYCLIA [id number] [place] [address] [place] Creatinine [Mass/Vol] 0.70 mg/dL Normal 0.58-0.96 [facility] Comment on above: Order Comment: Speci men Type: BLOOD SPECIMENOrdering Facility: [facility] Address: [address] [id number] Performed By: #### 2 4323-8, , 2776-02 ####[facility] LABORATORYCLIA [id number] [place] [address] [place] Creatinine and Glomerular filtration rate.predicted panel (S/P/Bld) 117 mL/min/1.73m??? Normal >=60 [facility] l Comment on above: Order Comment: Speci men Type: BLOOD SPECIMENOrdering Facility: [facility] Address: [address] [id number] Result Comment: Rashmi mated Glomerular Filtration Rate (eGFR) is calculated using the 2020 CKD-EPI creatinine equation. This equation utilizes serum creatinine, sex, and age as parameters. The creatinine assay has traceable calibration to isotope dilution-mass spectrometry. Refer to KDIGO guidelines for clinical interpretation. In patients with unstable renal function, e.g. those with acute kidney injury, the eGFR may not accurately reflect actual GFR. Performed By: #### 2 4323-8, 29770-0, 2776-02 ####[facility] CENTERIA [id number] [place] [address] [place] Glucose [Mass/Vol] 89 mg/dL Normal 74-99 [facility] Comment on above: Order Comment: Speci men Type: BLOOD SPECIMENOrdering Facility: [facility] Address: [address] [place], [place] [phone] Result Comment: The [place] Diabetes Association (ADA) provides guidance for cutoff values for fasting glucose and random glucose. The ADA defines fasting as no caloric intake for at least 8 hours. Fasting plasma glucose results between 100 to 125 mg/dL indicate increased risk for diabetes (prediabetes). Fasting plasma glucose results greater than or equal to 126 mg/dL meet the criteria for diagnosis of diabetes. In the absence of unequivocal hyperglycemia, results should be confirmed by repeat testing. In a patient with classic symptoms of hyperglycemia or hyperglycemic crisis, random plasma glucose results greater than or equal to 200 mg/dL meet the criteria for diagnosis of diabetes. Reference: Standards of Medical Care in Diabetes 2016, [place] [employer] Association. Diabetes Care. 2016.39(Suppl 1). Performed By: #### 2 4323-8, , 2776-02 ####[facility] CENTERIA [id number] [place] [address] [place] Potassium [Moles/Vol] 4.1 mmol/L Normal 3.7-5.1 [facility] Comment on above: Order Comment: Speci men Type: BLOOD SPECIMENOrdering Facility: [facility] Address: [address] [id number] Performed By: #### 2 4323-8, , 2776-02 ####[facility]ENTERIA [id number] [place] [address] [place] Protein [Mass/Vol] 5.0 g/dL Low 6.3-8.0 [facility] Comment on above: Order Comment: Speci men Type: BLOOD SPECIMENOrdering Facility: [facility] Address: [address] [place], [place] [phone] Performed By: #### 2 4323-8, 65937-5, 277- ####[facility] CENTERIA [id number] [place] [address] [place] Sodium [Moles/Vol] 140 mmol/L Normal 136-144 [facility] Comment on above: Order Comment: Speci men Type: BLOOD SPECIMENOrdering Facility: [facility] Address: [place] [address] Performed By: #### 2 4323-8, , 2776- ####[facility] CENTERIA [id number] [place] [address] [place] Urea nitrogen [Mass/Vol] 5 mg/dL Low 7-21 [facility] Comment on above: Order Comment: Speci men Type: BLOOD SPECIMENOrdering Facility: [facility] Address: [place] [address] Performed By: #### 2 4323-8, , 2776-02 ####[facility] CENTERIA [id number] [place] [address] [place] Magnesium SerPl-ncon 10-27 Magnesium [Mass/Vol] 1.9 mg/dL Normal 1.7-2.3 [facility] Comment on above: Order Comment: Speci [facility] Type: BLOOD SPECIMENOrdering Facility: [facility] Address: [place] [address] Performed By: #### 2 4323-8, , 27708-15 ####[facility]ENTERIA [id number] [place] [address] [place] NUTRITIONon 10-27-2022 NUTRITION HNO ID: [id number] Author: Ana Cristina Maza RD Service: Nutrition Therapy Author Type: Registered Dietitian Type: Nutrition Filed: 10/27/2022 11:48 AM Note Text: NUTRITION THERAPY INITIAL ASSESSMENT SERVICE DATE: 10/27/2022 SERVICE TIME: 922 Nutrition Assessment: Recommended Malnutrition Diagnosis: No Malnutrition Identified Nutrition Diagnosis: Problem: Suboptimal protein/energy intake Related to: Altered GI function As evidenced by: Food/nutrition related history, Patient/family self-report Estimated kilocalorie needs: 2382-3803 Calorie Calculation Method: (per OP bariatric) Estimated protein needs (grams): 75-100 Grams protein determined by: (per bariatric outpatient RD) Care Plan: Continue current diet Supplements: Ensure Max Vitamins and Minerals: Multivitamin with minerals, Vitamin D, Thiamine Monitor and Evaluation: Meet greater than 75% of estimated needs, Monitor fluid/electrolyte balance, Monitor labs, I/Os, vital signs, weight, Monitor bowel function Discharge Recommendations: Diet;Oral Supplements Diet: Phase V Bariatric Oral Supplements: Premier HPI: I have confirmed and edited as necessary the HPI obtained by Johana Garrido MD on 10/25 and all reflect current status. This is a 32 F with a PMH significant for HTN, asthma, GERD, PUD, hypothyroidism, PCOS, obesity s/p Tan-en-Y surgery 01/2022, presenting for intractable abdominal pain, N/V, poor PO intake. Patient has had these symptoms on an ongoing basis ever since she had her gallbladder removed years ago, but it was intermittent and she could go for many months symptom free. Over the past 2 weeks the symptoms have gotten acutely worse and more persistent. She has been evaluated the emergency department at least 5 times for the same complaint within the last 10 days, undergoing multiple laboratory evaluations and CT scanning without acute abnormality. No diarrhea but does state that she has been constipated. She has not had a fever. No urinary complaints. No falls or trauma. No chest pain or shortness of breath. In the ED, she was HDS on RA. No major concerning findings on blood work. UA negative. CT abdomen and pelvis: No acute abdominal or pelvic process is identified. Multiple hepatic cysts. Subcentimeter, low-attenuation lesion seen within liver are too small to characterize but statistically relate to subcentimeter cysts. Evidence of prior gastric bypass surgery. No bowel obstruction. Moderate stool burden. Incidentally noted is a 3.4 cm left adnexal cyst. Given IVF, maalox, pepcid, zofran, compazine, morphine with some relief. Admitted to medicine RNF for further evaluation and management. Clinically stable on arrival. PAST MEDICAL HISTORY Diagnosis Date Anemia Takes Pro FE daily. Arthritis Asthma Class 1 obesity without serious comorbidity with body mass index (BMI) of 33.0 to 33.9 in adult 09/25/2019 Gastric ulcer 2013 GERD (gastroesophageal reflux disease) History of IBS Hypertension Hypothyroid RICHAR on CPAP wears mask every night PCOS (polycystic ovarian syndrome) PONV (postoperative nausea and vomiting) 01/29/2022 Ventral hernia without obstruction or gangrene Patient seen this morning for consult. Patient had bariatric surgery 01/2022. She has been overall tolerating diet until recently with increased N/V over the past week with constipation. Feels dizzy and flushed when she eats and has identified that it happens with more complex carb foods, sweet potatoes. Discussed dumping syndrome and avoiding added sugars, fats, complex carbs. Discussed potentially cutting out sweet potatoes and other complex foods for now and reviewing again with bariatric RD. Intake History: Nutrition Intake Prior to Admission: Less than 75% estimated energy needs greater than 7 days Current Nutrition Intake: Unable to determine Current Intake Over time: (1 day) Diet Orders (From admission, onward) Start Ordered 10/27/22914 DIET NPO START NOW 10/27/22 0914 Anthropometrics: Height: 167.6 cm (5' 6 ) Weight: 88.2 kg (194 lb 7.1 oz) Dosing Weight: 88.2 kg (194 lb 7.1 oz) Usual Weight: (185-190lb) [employer], fluctuates Usual Weight Obtained From: Patient Body mass index is 31.38 kg/m?. Weight change percentage over time: -7.2% over 9 mos Physical Exam: Subcutaneous fat loss: No fat loss Muscle loss: No muscle loss Potential micronutrient deficiency: Hair Edema/Ascites: No edema, No ascites GI Symptoms: Constipation, Nausea, Early satiety (symptoms of dumping) Stool Amount: Decreased Functional Status: Regressed Potential Signs of Inflammation: Chronic condition s/p tan en y 01/2022 MNT Billing: $ Initial Assessment: 1-15 minutes SIGNATURE: Ana Cristina Maza RD, LD PATIENT NAME: Abbey Garcia DATE: October 27, 2022 TIME: 11:34 AM Normal [facility] Phosphate SerPl-mCncon 10-27 Phosphate [Mass/Vol] 3.1 mg/dL Normal 2.7-4.8 [facility] Comment on above: Order Comment: Speci men Type: BLOOD SPECIMENOrdering Facility: [facility] Address: [address] [place] [address] Performed By: #### 2 4323-8, 61221-0, 2777-1 ####[facility] LABORATORYCLIA [id number] [place] [address] [place] Upper GI endoscopyon 023 Upper GI endoscopy [facility] Gastrointestinal Endoscopy Patient Name: Abbey Garcia Procedure Date: 10/27/2022 11:32 AM Date of : 1990 Admit Type: Inpatient Age: 32 Room: Endo 2 Gender: Female Note Status: Finalized Attending MD: Raulito Hu MD Procedure: Upper GI endoscopy Indications: Abdominal pain Providers: Raulito Hu MD Patient Profile: This is a 32 year old female with PMHx of HTN, asthma, GERD, PUD, hypothyroidism, PCOS, obesity s/p Tan-en-Y surgery 01/2022 who presented with abdominal pain. Refer to note in patient chart for documentation of history and physical. Referring Physician: Medicines: Monitored Anesthesia Care Complications: No immediate complications. Requesting Provider: Procedure: Pre-Anesthesia Assessment: - Prior to the procedure, a History and Physical was performed, and patient medications and allergies were reviewed. The patient's tolerance of previous anesthesia was also reviewed. The risks and benefits of the procedure and the sedation options and risks were discussed with the patient. All questions were answered, and informed consent was obtained. Prior Anticoagulants: The patient has taken no anticoagulant or antiplatelet agents. ASA Grade Assessment: II - A patient with mild systemic disease. After reviewing the risks and benefits, the patient was deemed in satisfactory condition to undergo the procedure. After obtaining informed consent, the endoscope was passed under direct vision. Throughout the procedure, the patient's blood pressure, pulse, and oxygen saturations were monitored continuously. The 3031 was introduced through the mouth, and advanced to the jejunum. The upper GI endoscopy was accomplished without difficulty. The patient tolerated the procedure well. Moderate Sedation: MAC anesthesia was administered by the anesthesia team. Total Procedure Duration: 0 hours 3 minutes 17 seconds Findings: The examined jejunum was normal. 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 The gastrojejunal anastomosis was characterized by healthy appearing mucosa. This was traversed. The tmaoh-st-beykykf limb was characterized by healthy appearing mucosa. A small amount of food (residue) was found in the stomach and jejunum. The exam of the stomach was otherwise normal. The Z-line was regular and was found 36 cm from the incisors. The examined esophagus was normal. Impression: - Normal examined jejunum. - Tan-en-Y gastrojejunostomy with gastrojejunal anastomosis characterized by healthy appearing mucosa. - A small amount of food (residue) in the stomach. - Z-line regular, 36 cm from the incisors. - Normal esophagus. - No specimens collected. - Consider hypomotility due to finding of food residue in stomach adn jejunum. Otherwise, no findings to explain symptoms Recommendation: - Return patient to hospital [facility] for ongoing care. - Resume previous diet. - Continue present medications. - The patient is not currently taking anticoagulant or antiplatelet agents. Procedure Code(s): --- Professional --- 84041, Esophagogastroduodenos copy, flexible, transoral; diagnostic, including collection of specimen(s) by brushing or washing, when performed (separate procedure) Diagnosis Code(s): --- Professional --- Z98.0, Intestinal bypass and anastomosis status R10.9, Unspecified abdominal pain CPT copyright 2020 [employer]. All rights reserved. The codes documented in this report are preliminary and upon certified professional coder review may be revised to meet current compliance requirements. Attending Participation: I personally performed the entire procedure. Scope In: 11:52:08 AM Scope Out: 11:55:25 AM MD Raulito Fong MD 10/27/2022 12:04:57 PM This report has been signed electronically by Raulito Hu MD Number of Addenda: 0 Note Initiated On: 10/27/2022 11:32 AM Estimated Blood Loss: Estimated blood loss: none. Normal [facility] CBC panel Auto (Bld)on 10-26 Erythrocyte distribution width (RBC) [Ratio] 13.2 % Normal 11.5-15.0 [facility] Comment on above: Order Comment: Speci men Type: BLOOD SPECIMENOrdering Facility: [facility] Address: [address] [address] Performed By: #### 5 8410-2 ####[facility] [id number] [address] [place] Hematocrit (Bld) [Volume fraction] 34.9 % Low 36.0-46.0 [facility] Comment on above: Order Comment: Speci men Type: BLOOD SPECIMENOrdering Facility: [facility] Address: [address] [address] Performed By: #### 5 8410-2 ####[facility]ENTERIA [id number] [place] [address] [place] Hemoglobin (Bld) [Mass/Vol] 11.1 g/dL Low 11.5-15.5 [facility] Comment on above: Order Comment: Speci men Type: BLOOD SPECIMENOrdering Facility: [facility] Address: [address] [address] Performed By: #### 5 8410-2 ####[facility]ENTERIA [id number] [address] [place] MCH (RBC) [Entitic mass] 30.9 pg Normal 26.0-34.0 [facility] Comment on above: Order Comment: Speci men Type: BLOOD SPECIMENOrdering Facility: [facility] Address: [address] [address] Performed By: #### 5 8410-2 ####[facility]IA [id number] [address] [place] MCHC (RBC) [Mass/Vol] 31.8 g/dL Normal 30.5-36.0 [facility] Comment on above: Order Comment: Speci men Type: BLOOD SPECIMENOrdering Facility: [facility] Address: [address] [address] Performed By: #### 5 8410-2 ####[facility] LABORATORYIA [id number] [place] [address] [place] MCV (RBC) [Entitic vol] 97.2 fL Normal 80.0-100.0 [facility] Comment on above: Order Comment: Speci men Type: BLOOD SPECIMENOrdering Facility: [facility] Address: [address] Performed By: #### 5 8410-2 ####[facility] LABORATORYIA [id number] [place] [address] [place] Nucleated RBC (Bld) [#/Vol] 10*3/uL Normal <0.01 [facility] Comment on above: Order Comment: Speci men Type: BLOOD SPECIMENOrdering Facility: [facility] Address: [address] Performed By: #### 5 8410-2 ####[facility]IA [id number] [place] [address] [place] Platelet mean volume (Bld) [Entitic vol] 11.9 fL Normal 9.0-12.7 [facility] Comment on above: Order Comment: Speci men Type: BLOOD SPECIMENOrdering Facility: [facility] Address: [address] Performed By: #### 5 8410-2 ####[facility] [id number] [place] [address] [place] Platelets (Bld) [#/Vol] 181 10*3/uL Normal 150-400 [facility] Comment on above: Order Comment: Speci men Type: BLOOD SPECIMENOrdering Facility: [facility] Address: [address] Performed By: #### 5 8410-2 ####[facility]IA [id number] [place] [id number] [place] RBC (Bld) [#/Vol] 3.59 10*6/uL Low 3.90-5.20 [facility] Comment on above: Order Comment: Speci men Type: BLOOD SPECIMENOrdering Facility: [facility] Address: [address] Performed By: #### 5 8410-2 ####[facility] LABORATORYCLIA [id number] [facility] [place] [address] [facility] WBC (Bld) [#/Vol] 3.44 10*3/uL Low 3.70-11.00 [facility] Comment on above: Order Comment: Speci men Type: BLOOD SPECIMENOrdering Facility: [facility] Address: [address] [place] [address] Performed By: #### 5 8410-2 ####[facility] LABORATORYCLIA [id number] [facility] [place] [address] [facility] CONSULTon 10-26-2022 CONSULT HNO ID: [id number] Author: Ann Anderson APRN.CNP Service: Gastroenterology Author Type: Nurse Practitioner Type: Consults Filed: 10/26/2022 4:27 PM Note Text: GI INITIAL CONSULT NOTE SERVICE DATE: 10/26/2022 SERVICE TIME: 909 REASON FOR CONSULT: abdominal pain REQUESTING PHYSICIAN: Dr. Garrido PRIMARY CARE PHYSICIAN: Jaquan Morrow ASSESSMENT/PLAN 1.) Upper abdominal pain 2.) N/V 3.) Gastric bypass 4.) GERD 5.) Constipation Labs unremarkable Abd exam: soft, non-distended, mild-moderate upper abdominal tenderness on palpation, hypoactive bowel sounds CTAP yesterday with no acute process. Multiple hepatic cysts. Sub centimeter, low attenuation lesion seen within liver too small to characterize but statistically relate to sub centimeter cysts. Evidence of prior gastric bypass. No bowel obstruction. Moderate stool burden. Incidentally noted is a 3.4 cm left adnexal cyst. EGD 06/23/22 showed tan-en-Y with healthy appearing mucosa. No ulceration or stenosis. Normal Jejunum EGD 03/06/22 with anastomosis characterized by congestion, edema, erosion, erythema, friable mucosa and no stomal ulceration. Dilated. - Flush colon. On linzess at home (issues with insurance covering recently) start with enema, increased miralax 34g BM and added senna/colace BID - PPI IV BID, will give one time GI cocktail for pain. Educated on limiting narcotics as much as possible given constipation which will likely worsen symptoms Will decide on Upper GI series vs EGD pending clinical course and discussion with Dr. Hu Will continue to monitor ADDENDUM 1600: Discussed case with Dr. Hu - agrees with above POC. Per RN has had 2 BMs since enema, still with some pain but better. Will order GI series for tomorrow, no urgent need for EGD. Subjective Ms. Garcia is a 32 year old female with PMHx of HTN, asthma, GERD, PUD, hypothyroidism, PCOS, obesity s/p Tan-en-Y surgery 01/2022 who presented with abdominal pain for which GI is being consulted for. Pt states pain has been going on for about 10 days now. Started with upper abdominal pain and then N/V. She vomited food initially she ate but recently just bile. Denies hematemesis or coffee ground emesis. Has been having thin stools and constipation. Last emesis yesterday morning. Last stool Wednesday. Has been on linzess for 3 months was feeling better, issues with insurance covering now states will cost her 500 dollars. Denies heavy/daily NSAID use. Denies heavy alcohol use. Labs: WBC 3.44, Hgb 11.1, Hct 34.9, Plt 181, MCV 97.2, BUN 5, Cr 0.73, tbili 0.4, ALP 52, ALT 15, AST 30, Lipase 29 Follows with GI at [facility] main, recent OV 07/22/22 Interval Events: - She underwent SG to RYGB conversion in 01/2022, and that helped with the hearburn and the nausea. No longer using Omeprazole. Overall she has been doing pretty well and quality of life has been much better. Has lost more weight. - She has a rash on her face and upper extremities. Also feels tired, nauseated, has a sore throat, a dry cough and pain upon swallowing --> advised urgent care visit vs ER for eval ---> parvovirus? EBV? - She is now having issues with constipation. She has always had constipation but it got much worse the past 2 months. She is on Miralax daily and on that she has a BM once every 2-3 days and her BM is hard and lumpy and difficult to pass with associated pain on the left side. He also tried senna with no excellent outcomes. Colace also does not help. She tried Mg without much help. She does have trouble emptying her rectum. - She was admitted in June 2022 for intractable nausea and vomiting. CT scan with some constipation. EGD in June 2022 with healthy appearing anastomoses and normal gastric remnant. She was treated for constipation and felt better. Currently, no longer having nausea but has it here and there. - Previously tried to get off the Topamax and this did not help much with the nausea, now back on it.No abdominal pain. - She had an empiric dilation of her GJ anastomosis in Feb [address] Kat for nausea and vomiting right after eating. She tells me the dilaiton helped TEST RESULTS SINCE LAST VISIT XR ABD 06/22/22 Findings: GAS CONTAINING LOOPS OF NORMAL CALIBER LARGE AND SMALL BOWEL ARE SEEN. RIGHT UPPER QUADRANT SURGICAL CLIPS. CT ABD/PEL 06/20/22 Results: Liver: Bilobar hepatic cysts and subcentimeter hypoattenuating lesions which are too small to characterize. Biliary: Mild intrahepatic and extrahepatic biliary dilation, likely postcholecystectomy change. Spleen: No mass. No splenomegaly. Pancreas: No mass or duct dilation. Adrenals: No mass. Kidneys: Punctate 2 mm right lower pole nonobstructive calculus (2:55). No hydronephrosis. Bilateral subcentimeter hypoattenuating lesions are present that are too small to characterize. GI tract: Status post gastric bypass. No bowel dilation or wall thickening. Lymph nodes: (more content not included)... Normal [facility] Comprehensive metabolic 2000 panelon 10-26-2022 Albumin [Mass/Vol] 3.3 g/dL Low 3.9-4.9 [facility]ital Comment on above: Order Comment: Geraldo marrero Type: BLOOD SPECIMENOrdering Facility: [facility] Address: [address] [place] [address] Performed By: #### 3 016-3, 51638-4, 69806-7, 2777-1 ####[facility] LABORATORYCLIA [id number] [place] [address] [place] ALP [Catalytic activity/Vol] 52 U/L Normal 34-123 [facility] Comment on above: Order Comment: Geraldo marrero Type: BLOOD SPECIMENOrdering Facility: [facility] Address: [address] [address] Performed By: #### 3 016-3, 06811-1, 36096-9, 2776- ####[facility] [id number] [place] [address] [place] ALT [Catalytic activity/Vol] 15 U/L Normal 7-38 [facility] Comment on above: Order Comment: Speci men Type: BLOOD SPECIMENOrdering Facility: [facility] Address: [address] [address] Performed By: #### 3 016-3, 36751-1, 28216-9, 2776-02 ####[facility] [id number] [place] [address] [place] Anion gap [Moles/Vol] 9 mmol/L Normal 9-18 [facility] Comment on above: Order Comment: Speci men Type: BLOOD SPECIMENOrdering Facility: [facility] Address: [address] [place] [address] Performed By: #### 3 016-3, 04581-5, 63333-1, 2776-02 ####[facility]ENTERIA [id number] [place] [address] [place] AST [Catalytic activity/Vol] 30 U/L Normal 13-35 [facility] Comment on above: Order Comment: Speci men Type: BLOOD SPECIMENOrdering Facility: [facility] Address: [address] [address] Performed By: #### 3 016-3, 00168-6, 20080-2, 2776-02 ####[facility]ENTERIA [id number] [place] [address] [place] Bilirubin [Mass/Vol] 0.4 mg/dL Normal 0.2-1.3 [facility] Comment on above: Order Comment: Speci men Type: BLOOD SPECIMENOrdering Facility: [facility] Address: [address] [address] Performed By: #### 3 016-3, 27822-0, , 2776-02 ####[facility] LABORATORYCLIA [id number] [place] [address] [place] Calcium [Mass/Vol] 8.3 mg/dL Low 8.5-10.2 [facility] Comment on above: Order Comment: Speci men Type: BLOOD SPECIMENOrdering Facility: [facility] Address: [address] [place] [address] Performed By: #### 3 016-3, 35303-6, , 2776-02 ####[facility] LABORATORYCLIA [id number] [place] [address] [place] Chloride [Moles/Vol] 110 mmol/L High 97-105 [facility] Comment on above: Order Comment: Speci men Type: BLOOD SPECIMENOrdering Facility: [facility] Address: [address] [place] [address] Performed By: #### 3 016-3, 62407-7, , 2776-02 ####[facility] [id number] [place] [address] [place] CO2 [Moles/Vol] 20 mmol/L Low 22-30 [facility] Comment on above: Order Comment: Speci men Type: BLOOD SPECIMENOrdering Facility: [facility] Address: [address] [place] [address] Performed By: #### 3 016-3, 05682-9, , 2776-02 ####[facility]ENTERIA [id number] [place] [address] [place] Creatinine [Mass/Vol] 0.73 mg/dL Normal 0.58-0.96 [facility] Comment on above: Order Comment: Speci men Type: BLOOD SPECIMENOrdering Facility: [facility] Address: [address] [place] [address] Performed By: #### 3 016-3, 96279-6, , 2776-02 ####[facility] LABORATORYCLIA [id number] [place] [address] [place] Creatinine and Glomerular filtration rate.predicted panel (S/P/Bld) 112 mL/min/1.73m??? Normal >=60 [facility] Comment on above: Order Comment: Geraldo marrero Type: BLOOD SPECIMENOrdering Facility: [facility] Address: [address] [place] [address] Result Comment: Rashmi mated Glomerular Filtration Rate (eGFR) is calculated using the 2020 CKD-EPI creatinine equation. This equation utilizes serum creatinine, sex, and age as parameters. The creatinine assay has traceable calibration to isotope dilution-mass spectrometry. Refer to KDIGO guidelines for clinical interpretation. In patients with unstable renal function, e.g. those with acute kidney injury, the eGFR may not accurately reflect actual GFR. Performed By: #### 3 016-3, 25595-9, , 2776- ####[facility]IA [id number] [place] [address] [place] Glucose [Mass/Vol] 83 mg/dL Normal 74-99 [facility] Comment on above: Order Comment: Geraldo marrero Type: BLOOD SPECIMENOrdering Facility: [facility] Address: [address] [place] [address] Result Comment: The [place] [employer] (ADA) provides guidance for cutoff values for fasting glucose and random glucose. The ADA defines fasting as no caloric intake for at least 8 hours. Fasting plasma glucose results between 100 to 125 mg/dL indicate increased risk for diabetes (prediabetes). Fasting plasma glucose results greater than or equal to 126 mg/dL meet the criteria for diagnosis of diabetes. In the absence of unequivocal hyperglycemia, results should be confirmed by repeat testing. In a patient with classic symptoms of hyperglycemia or hyperglycemic crisis, random plasma glucose results greater than or equal to 200 mg/dL meet the criteria for diagnosis of diabetes. Reference: Standards of Medical Care in Diabetes 2016, [place] [employer]. Diabetes Care. 2016.39(Suppl 1). Performed By: #### 3 016-3, 16277-8, 47515-2, 2776- ####[facility] LABORATORYIA [id number] [place] [address] [place] Potassium [Moles/Vol] 4.2 mmol/L Normal 3.7-5.1 [facility] Comment on above: Order Comment: Speci men Type: BLOOD SPECIMENOrdering Facility: [facility] Address: [address] [address] Performed By: #### 3 016-3, 71164-1, 51325-6, 2776- ####[facility] LABORATORYCLIA [id number] [place] [address] [place] Protein [Mass/Vol] 5.0 g/dL Low 6.3-8.0 [facility] Comment on above: Order Comment: Speci men Type: BLOOD SPECIMENOrdering Facility: [facility] Address: [address] [place] [address] Performed By: #### 3 016-3, 89785-0, , 2776-02 ####[facility] LABORATORYCLIA [id number] [place] [address] [place] Sodium [Moles/Vol] 139 mmol/L Normal 136-144 [facility] Comment on above: Order Comment: Speci men Type: BLOOD SPECIMENOrdering Facility: [facility] Address: [address] [place] [address] Performed By: #### 3 016-3, 31624-4, 18845-2, 2776-02 ####[facility] LABORATORYCLIA [id number] [place] [address] [place] Urea nitrogen [Mass/Vol] 5 mg/dL Low 7-21 [facility] Comment on above: Order Comment: Speci men Type: BLOOD SPECIMENOrdering Facility: [facility] Address: [address] [place] [address] Performed By: #### 3 016-3, 72705-5, 61488-4, 2776- ####[facility] LABORATORYCLIA [id number] [place] [address] [place] ED Note-Physicianon 10-27-19 23 ED Note-Physician Basic Information Time Seen: Earnest Jett DO 10/20/2022 08:08 Chief Complaint pt reports to ed for worsening abd and back pain. pt was seen here yesterday. pain associated with n/v. pt reports no bowel movement in three days. History of Present Illness 32-year-old female comes to the ED for evaluation of abdominal pain. This has been a waxing waning issue for the last several days. She was initially seen in outside ED with negative work-up. She was then seen in this ED yesterday and again had negative work-up. She states that she was told was probably gastritis. She does have a history of gastritis as well as peptic ulcer disease. She has had multiple previous abdominal surgery including cholecystectomy, hysterectomy, appendectomy and gastric sleeve. She complains of nausea vomiting and diarrhea. No fever or chills. No cough, chest pain or shortness of breath. She is very tearful. She states she is taking the medications that were prescribed without any relief. Review of Systems A 10 point review of systems is negative except as noted above. Medical and Surgical History: Reviewed and noted Social history: Lives at home Tobacco: Denies Physical Exam Vitals & Measurements T: 36.6 ?C(Oral) HR: 75(Peripheral) RR: 15 BP: 141/86 SpO2: 99% HT: 168 cm WT: 85.6 kg BMI: 30.33 Nurses notes and vital signs reviewed and patient is not hypoxic. General: Awake and alert, appears uncomfortable Skin: Warm, dry, no pallor noted. Head: Atraumatic. Neck: No JVD. Eye: Normal conjunctiva. Ears, Nose, Mouth, and Throat: Moist mucous membranes Cardiovascular: Strong distal pulses. Chest wall: Respiratory: Respirations are nonlabored. Back: Normal range of motion, no CVA tenderness. Musculoskeletal: Normal ROM with no gross deformity. Gastrointestinal: Abdomen is soft throughout. There is mild tenderness of the epigastric area. No guarding, rebound or rigidity. No distention Urological: Neurological: Awake and alert. No focal deficits. Follows commands. GCS 15. Psychiatric: Cooperative. Medical Decision Making Patient presents with epigastric abdominal pain. This has been a waxing waning issue for quite some time. Her previous ED and hospital notes have been reviewed. She had negative EGD in the past. Reportedly she had negative CT scan several days ago in outside facility. She was seen in this ED yesterday where she had stable blood work with the exception of a mildly elevated lipase. Her exam today is relatively stable. She does have some abdominal tenderness but no peritoneal signs. She is stable vital signs. Repeat laboratory studies were reviewed and are improved from previous. However, she has required multiple doses of medications for symptom control. Given the need for both medications and multiple ED visits, CT scans were obtained today. Initially the scans were to be obtained with IV contrast, however there are significant difficulty establishing IV access in this patient, and her IV blew when they attempted to give IV contrast. Therefore scans were obtained without contrast, reviewed by radiologist, and there is no acute intra-abdominal findings. She is now feeling improved after multiple medications and is taking oral hydration. She is discharged home to continue with her multiple medications prescribed yesterday to follow-up with her PCP and GI. Patient was encouraged to return to the ED if symptoms worsen or change. Assessment/Plan Abdominal pain (R10.9: Unspecified abdominal pain) Nausea and vomiting (R11.2: Nausea with vomiting, unspecified) Orders: chlorproMAZINE, 25 mg = 1 mL, Injection, IntraMuscular, Once, Stop date 10/20/22 8:20:00 EDT, STAT, Start date 10/20/22 8:20:00 EDT, 10/20/22 8:20:00 EDT morphine, 8 mg = 4 mL, Injection, IntraMuscular, Once, Stop date 10/20/22 11:22:00 EDT, STAT, Start date 10/20/22 11:22:00 EDT, 10/20/22 11:22:00 EDT promethazine, 25 mg = 1 tab(s), Oral, TID, # 15 tab(s), Refills(s) 0, Pharmacy: [facility]/pharmacy #[id number], 168, cm, 10/20/22 8:21:00 EDT, Height/Length Dosing, 85.6, kg, 10/20/22 8:21:00 EDT, Weight Dosing CT Abdomen/Pelvis w/o Contrast CT Chest w/o Contrast UA With Cult Reflex Medications Administered Given chlorproMAZINE 25 mg/mL Inj, 25 mg, IntraMuscular morphine 2 mg/mL Inj, 8 mg, IntraMuscular Disposition Plan Patient Discharge Condition Disposition: Discharged home Condition: Improved and stable Counseled: Patient and/or family were counseled to workup, results, treatment plan and follow-up recommendations Discharge Prescription List Prescriptions promethazine 25 mg Tab, 25 mg= 1 tab(s), Oral, TID Follow-up With When Contact Information Jaquan Morrow In 3 days 10/23/[address] [place] [address] Business (1) Additional Instructions: Patient Education Gastritis, Adult Abdominal Pain, Adult Attestation Patient seen and evaluated by the physician phlebotomy lab assistant. Attending physician was present in the emergency department (more content not included)... Normal [facility] Comment on above: Result Comment: Elec tronically Signed By: Lonnie Rios PA-C\.br\Date and Time Signed: 10/20/22 13:50 EDT\.br\Electronically Co-Signed By: Earnest Jett DO\.br\Date and Time Co-Signed: 10/26/22 07:01 EDT Magnesium SerPl-mCncon 10-26 Magnesium [Mass/Vol] 1.9 mg/dL Normal 1.7-2.3 [facility] Comment on above: Order Comment: Speci men Type: BLOOD SPECIMENOrdering Facility: [facility] Address: [address] [place], [place] [address] Performed By: #### 3 016-3, 78265-3, 50578-1, 2776-02 ####[facility] LABORATORYCLIA [id number] [place] [address] [place] Phosphate SerPl-mCncon 10-26 Phosphate [Mass/Vol] 4.3 mg/dL Normal 2.7-4.8 [facility] Comment on above: Order Comment: Speci men Type: BLOOD SPECIMENOrdering Facility: [facility] Address: [address] [phone] Performed By: #### 3 016-3, 86182-0, 47210-8, 27708-15 ####[facility] LABORATORYCLIA [id number] [place] [address] [place] TSH SerPl-aCncon 10-26-2022 TSH Qn 0.712 m[IU]/L Normal 0.270-4.200 [place] [facility] Comment on above: Order Comment: Geraldo marrero Type: BLOOD SPECIMENOrdering Facility: [facility] Address: [address] [place] [address] Result Comment: If t he patient is , TSH reference range varies by gestational period: First Trimester (weeks 9-12): 0.180-2.990 mIU/L Second Trimester: 0.110-3.980 mIU/L Third Trimester: 0.480-4.710 mIU/L Robby Johnson et al. A Practical Approach for the Verifications and Determination of Site- and Trimester-Specific Reference Intervals for Thyroid Function tests in . Thyroid, 2019:29:3:412-420. Claus Graf, et al. 2017 Guidelines of the [place] Thyroid Association for the Diagnosis and Management of Thyroid Disease during and the . Thyroid, 2017:27:3:315-389. Performed By: #### 3 016-3, 00373-4, 74541-8, 2777-1 ####[facility] LABORATORYCLIA [id number] [facility] [place] CBC W Auto Differential pane l (Bld)on 10-25-2022 Basophils (Bld) [#/Vol] 0.04 10*3/uL Normal <0.11 [facility] Comment on above: Order Comment: Geraldo marrero Type: BLOOD SPECIMENOrdering Facility: [facility] Address: [address] [place] [address] Performed By: #### 5 7021-8 ####[facility] LABORATORYCLIA [id number] [facility] STATES OF [facility] Basophils/100 WBC (Bld) 1.1 % Normal [facility] Comment on above: Order Comment: Geraldo marrero Type: BLOOD SPECIMENOrdering Facility: [facility] Address: [address] [place] [address] Performed By: #### 5 7021-8 ####[facility] LABORATORYCLIA [id number] [facility].[address] [place] Differential cell count method Nom (Bld) Auto Normal [facility] Comment on above: Order Comment: Speci men Type: BLOOD SPECIMENOrdering Facility: [facility] Address: [address] [address] Performed By: #### 5 7021-8 ####[facility] LABORATORYCLIA [id number] [place] [address] [place] Eosinophils (Bld) [#/Vol] 0.07 10*3/uL Normal <0.46 [facility] Comment on above: Order Comment: Speci men Type: BLOOD SPECIMENOrdering Facility: [facility] Address: [address] [place] [address] Performed By: #### 5 7021-8 ####[facility] LABORATORYCLIA [id number] [place] [address] [place] Eosinophils/100 WBC (Bld) 1.9 % Normal [facility] Comment on above: Order Comment: Speci men Type: BLOOD SPECIMENOrdering Facility: [facility] Address: [address] [place] [address] Performed By: #### 5 7021-8 ####[facility] LABORATORYIA [id number] [address] [place] Erythrocyte distribution width (RBC) [Ratio] 13.0 % Normal 11.5-15.0 [facility] Comment on above: Order Comment: Speci men Type: BLOOD SPECIMENOrdering Facility: [facility] Address: [address] [address] Performed By: #### 5 7021-8 ####[facility] LABORATORYIA [id number] [address] [place] Hematocrit (Bld) [Volume fraction] 39.5 % Normal 36.0-46.0 [facility] Comment on above: Order Comment: Speci men Type: BLOOD SPECIMENOrdering Facility: [facility] Address: [address] [place] [address] Performed By: #### 5 7021-8 ####[facility] LABORATORYCLIA [id number] [place] [address] [place] Hemoglobin (Bld) [Mass/Vol] 13.1 g/dL Normal 11.5-15.5 [facility] Comment on above: Order Comment: Speci men Type: BLOOD SPECIMENOrdering Facility: [facility] Address: [address] [place] [address] Performed By: #### 5 7021-8 ####[facility] LABORATORYCLIA [id number] [place] [address] [place] Immature granulocytes (Bld) [#/Vol] 10*3/uL Normal <0.10 [facility] Comment on above: Order Comment: Speci men Type: BLOOD SPECIMENOrdering Facility: [facility] Address: [address] [place] [address] Performed By: #### 5 7021-8 ####[facility] CENTERIA [id number] [place] [address] [place] Immature granulocytes/100 WBC (Bld) 0.3 % Normal [facility] Comment on above: Order Comment: Speci men Type: BLOOD SPECIMENOrdering Facility: [facility] Address: [address] [place] [address] Performed By: #### 5 7021-8 ####[facility] LABORATORYIA [id number] [place] [address] [place] Lymphocytes (Bld) [#/Vol] 1.11 10*3/uL Normal 1.00-4.00 [facility] Comment on above: Order Comment: Speci men Type: BLOOD SPECIMENOrdering Facility: [facility] Address: [address] [place], [place] [address] Performed By: #### 5 7021-8 ####[facility] LABORATORYIA [id number] [place] [address] [place] Lymphocytes/100 WBC (Bld) 29.4 % Normal [facility] Comment on above: Order Comment: Speci men Type: BLOOD SPECIMENOrdering Facility: [facility] Address: [address] [address] Performed By: #### 5 7021-8 ####[facility] [id number] [address] [place] MCH (RBC) [Entitic mass] 30.5 pg Normal 26.0-34.0 [facility] Comment on above: Order Comment: Speci men Type: BLOOD SPECIMENOrdering Facility: [facility] Address: [address] [address] Performed By: #### 5 7021-8 ####[facility] [id number] [place] [address] [place] MCHC (RBC) [Mass/Vol] 33.2 g/dL Normal 30.5-36.0 [facility] Comment on above: Order Comment: Speci men Type: BLOOD SPECIMENOrdering Facility: [facility] Address: [address] [address] Performed By: #### 5 7021-8 ####[facility] [id number] [place] [address] [place] MCV (RBC) [Entitic vol] 92.1 fL Normal 80.0-100.0 [facility] Comment on above: Order Comment: Speci men Type: BLOOD SPECIMENOrdering Facility: [facility] Address: [address] [address] Performed By: #### 5 7021-8 ####[facility] CENTERIA [id number] [address] [place] Monocytes (Bld) [#/Vol] 0.27 10*3/uL Normal <0.87 [facility] Comment on above: Order Comment: Speci men Type: BLOOD SPECIMENOrdering Facility: [facility] Address: [address] [address] Performed By: #### 5 7021-8 ####[facility] LABORATORYIA [id number] [place] [address] [place] Monocytes/100 WBC (Bld) 7.1 % Normal [facility] Comment on above: Order Comment: Speci men Type: BLOOD SPECIMENOrdering Facility: [facility] Address: [address] [address] Performed By: #### 5 7021-8 ####[facility] LABORATORYCLIA [id number] [place] [address] [place] Neutrophils (Bld) [#/Vol] 2.28 10*3/uL Normal 1.45-7.50 [facility] Comment on above: Order Comment: Speci men Type: BLOOD SPECIMENOrdering Facility: [facility] Address: [address] [address] Performed By: #### 5 7021-8 ####[facility] LABORATORYCLIA [id number] [place] [address] [place] Neutrophils/100 WBC (Bld) 60.2 % Normal [facility] Comment on above: Order Comment: Speci men Type: BLOOD SPECIMENOrdering Facility: [facility] Address: [address] [address] Performed By: #### 5 7021-8 ####[facility] LABORATORYCLIA [id number] [place] [address] [place] Nucleated RBC (Bld) [#/Vol] 10*3/uL Normal <0.01 [facility] Comment on above: Order Comment: Speci men Type: BLOOD SPECIMENOrdering Facility: [facility] Address: [address] [address] Performed By: #### 5 7021-8 ####[facility] LABORATORYCLIA [id number] [place] [address] [place] Nucleated RBC/100 WBC (Bld) [Ratio] 0.0 /100 WBC Normal [facility] Comment on above: Order Comment: Speci men Type: BLOOD SPECIMENOrdering Facility: [facility] Address: [address] Performed By: #### 5 7021-8 ####[facility] CENTERIA [id number] [place] [address] [place] Platelet mean volume (Bld) [Entitic vol] 11.4 fL Normal 9.0-12.7 [facility] Comment on above: Order Comment: Speci men Type: BLOOD SPECIMENOrdering Facility: [facility] Address: [address] [place] [address] Performed By: #### 5 7021-8 ####[facility] CENTERIA [id number] [place] [id number] [place] Platelets (Bld) [#/Vol] 208 10*3/uL Normal 150-400 [facility] Comment on above: Order Comment: Speci men Type: BLOOD SPECIMENOrdering Facility: [facility] Address: [address] [place] [address] Performed By: #### 5 7021-8 ####[facility] [id number] [place] [address] [place] RBC (Bld) [#/Vol] 4.29 10*6/uL Normal 3.90-5.20 [facility] Comment on above: Order Comment: Speci men Type: BLOOD SPECIMENOrdering Facility: [facility] Address: [address] [place] [address] Performed By: #### 5 7021-8 ####[facility] [id number] [facility] [id number] [place] WBC (Bld) [#/Vol] 3.78 10*3/uL Normal 3.70-11.00 [facility] Comment on above: Order Comment: Speci men Type: BLOOD SPECIMENOrdering Facility: [facility] Address: [address] [place] [address] Performed By: #### 5 7021-8 ####[facility] [id number] [place] [address] [place] CT ABD/PEL W IVCONon 023 CT ABD/PEL W IVCON * * *Final Report* * * DATE OF EXAM: Oct 25 2022 9:40AM [facility] 0530 - CT ABD/PEL W IVCON / PROCEDURE REASON: Abdominal pain, acute, nonlocalized * * * * Physician Interpretation * * * * EXAMINATION: CT ABDOMEN AND PELVIS WITH IV CONTRAST CLINICAL HISTORY: Right-sided flank pain, nausea, and vomiting. TECHNIQUE: CT of the abdomen and pelvis was performed using standard technique, scanning from just above the dome of the diaphragm to the symphysis pubis. MQ: CTAP_3 Contrast: IV: 100 ml of Omnipaque 350 Oral: None CT Radiation dose: Integrated Dose-length product (DLP) for this visit = 269 mGy*cm. CT Dose Reduction Employed: Automated exposure control(AEC) and iterative recon COMPARISON: 10/18/2022. RESULT: Liver: There are multiple hepatic cysts again seen. Additionally, there are subcentimeter, low-attenuation lesions again seen within the liver, which are too small to characterize but statistically relate to subcentimeter cysts. Biliary: The patient is status post cholecystectomy. Again seen is mild biliary dilation, likely related to the cholecystectomy. Spleen: No mass. No splenomegaly. Pancreas: There is no obvious focal discrete pancreatic mass or pancreatic ductal dilation. Adrenals: No mass. Kidneys: There is no hydronephrosis or perinephric fluid collection. GI tract: The patient is status post gastric bypass surgery. There are no dilated loops of bowel to suggest obstruction. Status post appendectomy. Moderate stool burden. Lymph nodes: There is no abdominal lymphadenopathy. Mesentery/Peritoneum: No abdominal ascites. Retroperitoneum: No mass. Vasculature: There is no abdominal aortic aneurysm. Pelvis: Urinary bladder is distended. Multiple phleboliths are seen within the pelvis. Patient is status post hysterectomy. There is an approximately 3.4 x 2.9 cm left adnexal cyst (series 301, image #86). Prominent, less than 1 cm pelvic lymph nodes are likely reactive. Bones/Soft Tissues: There is no destructive bony lesion. Lower thorax: Mild dependent atelectasis. IMPRESSION: No acute abdominal or pelvic process is identified. Multiple hepatic cysts. Subcentimeter, low-attenuation lesion seen within liver are too small to characterize but statistically relate to subcentimeter cysts. Evidence of prior gastric bypass surgery. No bowel obstruction. Moderate stool burden. Incidentally noted is a 3.4 cm left adnexal cyst. Special Investigator: PSCB Transcribe Date/Time: Oct 25 2022 9:41A Dictated by : ANABELLE JAFFE MD This examination was interpreted and the report reviewed and electronically signed by: ANABELLE JAFFE MD on Oct 25 2022 9:48AM EST [id number] Normal [facility] Comprehensive metabolic 2000 panelon 10-25-2022 Albumin [Mass/Vol] 4.2 g/dL Normal 3.9-4.9 [facility] Comment on above: Order Comment: Speci men Type: BLOOD SPECIMENOrdering Facility: [facility] Address: [address] [address] Performed By: #### 2 4323-8, 3039-3, ####[facility] LABORATORYCLIA [id number] [place] [address] [place] ALP [Catalytic activity/Vol] 70 U/L Normal 34-123 [facility] Comment on above: Order Comment: Speci men Type: BLOOD SPECIMENOrdering Facility: [facility] Address: [address] [address] Performed By: #### 2 4323-8, 3, ####[facility] LABORATORYCLIA [id number] [place] [address] [place] [facility] ALT [Catalytic activity/Vol] 21 U/L Normal 7-38 [facility] Comment on above: Order Comment: Speci men Type: BLOOD SPECIMENOrdering Facility: [facility] Address: [address] [address] Performed By: #### 2 4323-8, 3, ####[facility] LABORATORYCLIA [id number] [place] [address] [place] Anion gap [Moles/Vol] 10 mmol/L Normal 9-18 [facility] Comment on above: Order Comment: Speci men Type: BLOOD SPECIMENOrdering Facility: [facility] Address: [address] [address] Performed By: #### 2 4323-8, 0-3, ####[facility]ENTERIA [id number] [place] [address] [place] AST [Catalytic activity/Vol] 38 U/L High 13-35 [facility] Comment on above: Order Comment: Speci men Type: BLOOD SPECIMENOrdering Facility: [facility] Address: [address] [address] Performed By: #### 2 4323-8, 3, ####[facility] CENTERIA [id number] [place] [id number] [place] Bilirubin [Mass/Vol] 0.3 mg/dL Normal 0.2-1.3 [facility] Comment on above: Order Comment: Speci men Type: BLOOD SPECIMENOrdering Facility: [facility] Address: [address] [place] [address] Performed By: #### 2 4323-8, 3, ####[facility] [id number] [place] [address] [place] Calcium [Mass/Vol] 8.8 mg/dL Normal 8.5-10.2 [facility] Comment on above: Order Comment: Speci men Type: BLOOD SPECIMENOrdering Facility: [facility] Address: [address] [address] Performed By: #### 2 4323-8, 3, ####[facility]ENTERIA [id number] [place] [address] [place] Chloride [Moles/Vol] 106 mmol/L High 97-105 [facility] Comment on above: Order Comment: Speci men Type: BLOOD SPECIMENOrdering Facility: [facility] Address: [address] [address] Performed By: #### 2 4323-8, ####[facility] LABORATORYIA [id number] [place] [address] [place] CO2 [Moles/Vol] 22 mmol/L Normal 22-30 [facility] Comment on above: Order Comment: Speci men Type: BLOOD SPECIMENOrdering Facility: [facility] Address: [address] [place] [address] Performed By: #### 2 4323-8, 3039-3, ####[facility] LABORATORYIA [id number] [place] [address] [place] Creatinine [Mass/Vol] 0.82 mg/dL Normal 0.58-0.96 [facility] Comment on above: Order Comment: Speci men Type: BLOOD SPECIMENOrdering Facility: [facility] Address: [address] [place] [address] Performed By: #### 2 4323-8, 3039-04, ####[facility]ENTERIA [id number] [place] [address] [place] Creatinine and Glomerular filtration rate.predicted panel (S/P/Bld) 97 mL/min/1.73m??? Normal >=60 [facility] Comment on above: Order Comment: Speci men Type: BLOOD SPECIMENOrdering Facility: [facility] Address: [address] [place] [address] Result Comment: Rashmi mated Glomerular Filtration Rate (eGFR) is calculated using the 2020 CKD-EPI creatinine equation. This equation utilizes serum creatinine, sex, and age as parameters. The creatinine assay has traceable calibration to isotope dilution-mass spectrometry. Refer to KDIGO guidelines for clinical interpretation. In patients with unstable renal function, e.g. those with acute kidney injury, the eGFR may not accurately reflect actual GFR. Performed By: #### 2 4323-8, 3039-3, ####[facility] LABORATORYIA [id number] [place] [address] [place] Glucose [Mass/Vol] 85 mg/dL Normal 74-99 [facility] Comment on above: Order Comment: Geraldo marrero Type: BLOOD SPECIMENOrdering Facility: [facility] Address: [address] [id number] Result Comment: The [place] Diabetes Association (ADA) provides guidance for cutoff values for fasting glucose and random glucose. The ADA defines fasting as no caloric intake for at least 8 hours. Fasting plasma glucose results between 100 to 125 mg/dL indicate increased risk for diabetes (prediabetes). Fasting plasma glucose results greater than or equal to 126 mg/dL meet the criteria for diagnosis of diabetes. In the absence of unequivocal hyperglycemia, results should be confirmed by repeat testing. In a patient with classic symptoms of hyperglycemia or hyperglycemic crisis, random plasma glucose results greater than or equal to 200 mg/dL meet the criteria for diagnosis of diabetes. Reference: Standards of Medical Care in Diabetes 2016, [place] Diabetes Association. Diabetes Care. 2016.39(Suppl 1). Performed By: #### 2 4323-8, 0-3, ####[facility] LABORATORYCLIA [id number] [place] [address] [place] Potassium [Moles/Vol] 3.8 mmol/L Normal 3.7-5.1 [facility] Comment on above: Order Comment: Geraldo marrero Type: BLOOD SPECIMENOrdering Facility: [facility] Address: [address] [address] Performed By: #### 2 4323-8, 0-3, ####[facility]ENTERIA [id number] [place] [address] [place] Protein [Mass/Vol] 6.5 g/dL Normal 6.3-8.0 [facility] Comment on above: Order Comment: Geraldo marrero Type: BLOOD SPECIMENOrdering Facility: [facility] Address: [address] Performed By: #### 2 4323-8, 0-3, ####[facility] LABORATORYIA [id number] [place] [address] [place] Sodium [Moles/Vol] 138 mmol/L Normal 136-144 [facility] Comment on above: Order Comment: Speci men Type: BLOOD SPECIMENOrdering Facility: [facility] Address: [address] [place] [address] Performed By: #### 2 4323-8, 3040-3, 26763-5 ####[facility] LABORATORYIA [id number] [place] [address] [place] [facility] Urea nitrogen [Mass/Vol] 7 mg/dL Normal 7-21 [facility] Comment on above: Order Comment: Speci men Type: BLOOD SPECIMENOrdering Facility: [facility] Address: [address] Performed By: #### 2 4323-8, 3040-3, ####[facility] LABORATORYIA [id number] [place] [address] [place] D dimer FEU PPP-mCncon 10-25 Fibrin D-dimer FEU (PPP) [Mass/Vol] <190 Normal <500 [facility] Comment on above: Order Comment: Speci men Type: BLOOD SPECIMENOrdering Facility: [facility] Address: [address] [place] [address] Performed By: #### 4 8065-7 ####[facility]ENTERIA [id number] [place] [address] [place] ECG COMPLETEon 10-25-2022 ECG COMPLETE Ventricular Rate : 9 3 BPM Atrial Rate : 93 BPM P-R Interval : 142 ms QRS Duration : 80 ms Q-T Interval : 384 ms QTC Calculation(Bazett) : 477 ms Calculated P [place] : 87 degrees Calculated R [place] : 86 degrees Calculated T [place] : 53 degrees Normal sinus rhythm Normal ECG 0632 no STEMI Confirmed by DO YANG CATHERINE ANNA ([id number]), scientific publications editor JAMI RIBEIRO ([id number]) on 10/25/2022 4:24:51 PM NAME : ABBEY GARCIA PID : [id number] : 1990 Gender : Female Race : ORD : [id number] Procedure Date : Oct 25 2022 06:14:30 Edit Date : Oct 25 2022 16:24:52 Diagnosis: Normal sinus rhythm Normal ECG 0632 no STEMI Confirmed by DO YANG CATHERINE ANNA ([id number]), scientific publications editor JAMI RIBEIRO ([id number]) on 10/25/2022 4:24:51 PM Test Reason : Chest Pain Location : 302 : ED ED Overread By : DO YANG CATHERINE ANNA Edited By : JAMI RIBEIRO Referred By : , Acquired by : [id number], [facility] ED NOTEon 10-25-2022 ED NOTE HNO ID: [id number] Author: Aisha Myers, DEE Service: ? Author Type: Registered Nurse Type: ED Notes Filed: 10/25/2022 8:19 AM Note Text: Pt unable to urinate sat this time. Aware urine sample is needed. [facility] ED NOTE HNO ID: [id number] Author: Hilario Medellin, CT Service: ? 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 Reports kidney stone in right kidney. Reports complications with gastric bypass in January 2022. No other physical complaints at this time. [facility] ED PROV NOTEon 10-25-2022 ED PROV NOTE HNO ID: [id number] Author: Earnest Morales PA-C Service: Emergency Medicine Author Type: Physician Enrollment Representative Type: ED Provider Notes Filed: 10/25/2022 12:02 PM Note Text: Attestation signed by Tino Noel DO at 10/25/2022 12:12 PM Attending Note I have personally performed a face to face assessment of the patient and have reviewed the BRE note. I performed a substantive portion of the visit including all aspects of the following. My paula findings include: 0906 Patient seen and examined. Presents to the ER for evaluation of nausea vomiting and upper abdominal pain. Has been to 6 EGDs in the last 10 days. Is on pain medications. Complaining of nausea vomiting. Feels dizzy lightheaded with getting up and activity. Has not had a bowel movement in 3 days. Does not feel the pain is secondary to constipation. History of gastric bypass and hysterectomy in the past. History of cholecystectomy as well. On my exam she appears uncomfortable, nontoxic, no acute distress. Heart is regular rate rhythm, lungs are clear to auscultation, abdomen is soft nondistended but tender in the right upper quadrant with voluntary guarding and no rebound. ED work-up reviewed. No evidence of sepsis or anemia. No significant dehydration. D-dimer obtained because she had some flank discomfort and this was normal. I reviewed her EKG and it is nonischemic. Lipase is normal, magnesium levels normal. Given fluids antiemetic, Pepcid. Will obtain a CT of the abdomen pelvis with IV contrast. Disposition pending CT and reassessment, will also provide with pain medications. [GA] 0952 CT abdomen and pelvis shows no acute intra-abdominal pathology. Adnexal cyst on the left noted, unlikely to be related to right-sided upper quadrant pain. Stool burden noted with no bowel obstruction. [GA] 1050 Patient continues to have pain so we will admit her for observation, pain control, further evaluation or treatment. [GA] Signature: Tino Noel, Date: 10/25/2022 Time: 12:12 PM ED Provider Note Patient Name: Abbey Garcia : 1990 SERVICE DATE: 10/25/22 History Patient presents with: Palpitations Flank Pain HPI: 32-year-old female history of gastric bypass surgery, gastritis, gastric ulcers, asthma, hypertension, PCOS, presents emergency department with concern for right-sided abdominal pain. States that this abdominal pain has been an ongoing thing ever since she had her gallbladder removed years ago. States she can go 6 to 12 months to feel fine and she has recurrent pain on the right side of the abdomen. She has been evaluated the emergency department at least 5 times for the same complaint within the last 10 days, undergoing multiple laboratory evaluations and CT scanning without acute abnormality. Admits to nausea and vomiting and difficulty tolerating p.o. No diarrhea but does state that she has been constipated. She has not had a fever. No urinary complaints. No falls or trauma. No chest pain or shortness of breath. Past Medical History: Reviewed in hpi Past Surgical History: Appendectomy, cholecystectomy, gastric bypass Social History: No alcohol use Allergies: Reviewed PAST MEDICAL HISTORY Diagnosis Date Anemia Takes Pro FE daily. Arthritis Asthma Class 1 obesity without serious comorbidity with body mass index (BMI) of 33.0 to 33.9 in adult 09/25/2019 Gastric ulcer 2013 GERD (gastroesophageal reflux disease) History of IBS Hypertension Hypothyroid RICHAR on CPAP wears mask every night PCOS (polycystic ovarian syndrome) PONV (postoperative nausea and vomiting) 01/29/2022 Ventral hernia without obstruction or gangrene PAST SURGICAL HISTORY Procedure Laterality Date APPENDECTOMY 08/2019 ARTHROSCOPY, SHOULDER, SURGI Right 08/2022 SLAP REPAIR and Subacromial Decompression CHOLECYSTECTOMY COLONOSCOPY GEN ANES EGD F TOTAL ABDOMINAL HYSTERECTOMY PAST SURGICAL HISTORY OF Bilateral arthroscopic knee surgery- was catcher in college PAST SURGICAL HISTORY OF 08/2020 gastric sleeve PICC LINE INSERT/CONSULT 12/24/2020 VAGINAL DELIVERY AFTER DELIVERY Three C-sections FAMILY HISTORY Problem Relation Age of Onset Diabetes Mother Hypertension Mother Obesity Mother Hypertension Father Hypertension Brother Obesity Brother Hypertension Brother Obesity Brother Social History Tobacco Use Smoking status: Never Smokeless tobacco: Never Substance and Sexual Activity Alcohol use: Not Currently Drug use: Never Comment: denies tx for drug/alcohol abuse in the past. Sexual activity: Yes Partners: Male Comment: Nexplanon impact ALLERGIES Allergen Reactions Adhesive Tape-Silic* Intolerance Sensitive to certain adhesive tapes. Redness and itchy. Codeine GI Ups (more content not included)... Normal [facility] HISTORY PHYSICALon 3 HISTORY PHYSICAL HNO ID: [id number] Author: Johana Garrido MD Service: Hospital Medicine Author Type: Physician Type: HANDP Filed: 10/25/2022 3:25 PM Note Text: SERVICE DATE: 10/25/2022 SERVICE TIME: 3:25 PM HOSPITAL MEDICINE HISTORY AND PHYSICAL PCP: Jaquan Morrow NIGHT AND WEEKEND COVERAGE: EMILIA COVERAGE: Days: [phone], please contact via Can'tWait [employer] Nights: [phone] - 3rd floor: please page CC Hospitalist night cover [phone] - 4th floor: please page CC Hospitalist night cover [phone] - 5th floor: please page CC Hospitalist night cover [phone] SUBJECTIVE Chief Complaint: Abdominal pain HPI: This is a 32 F with a PMH significant for HTN, asthma, GERD, PUD, hypothyroidism, PCOS, obesity s/p Tan-en-Y surgery 01/2022, presenting for intractable abdominal pain, N/V, poor PO intake. Patient has had these symptoms on an ongoing basis ever since she had her gallbladder removed years ago, but it was intermittent and she could go for many months symptom free. Over the past 2 weeks the symptoms have gotten acutely worse and more persistent. She has been evaluated the emergency department at least 5 times for the same complaint within the last 10 days, undergoing multiple laboratory evaluations and CT scanning without acute abnormality. No diarrhea but does state that she has been constipated. She has not had a fever. No urinary complaints. No falls or trauma. No chest pain or shortness of breath. In the ED, she was HDS on RA. No major concerning findings on blood work. UA negative. CT abdomen and pelvis: No acute abdominal or pelvic process is identified. Multiple hepatic cysts. Subcentimeter, low-attenuation lesion seen within liver are too small to characterize but statistically relate to subcentimeter cysts. Evidence of prior gastric bypass surgery. No bowel obstruction. Moderate stool burden. Incidentally noted is a 3.4 cm left adnexal cyst. Given IVF, maalox, pepcid, zofran, compazine, morphine with some relief. Admitted to medicine RNF for further evaluation and management. Clinically stable on arrival. PAST MEDICAL HISTORY Diagnosis Date - Anemia Takes Pro FE daily. - Arthritis - Asthma - Class 1 obesity without serious comorbidity with body mass index (BMI) of 33.0 to 33.9 in adult 09/25/2019 - Gastric ulcer 2013 - GERD (gastroesophageal reflux disease) - History of IBS - Hypertension - Hypothyroid - RICHAR on CPAP wears mask every night - PCOS (polycystic ovarian syndrome) - PONV (postoperative nausea and vomiting) 01/29/2022 - Ventral hernia without obstruction or gangrene PAST SURGICAL HISTORY Procedure Laterality Date - APPENDECTOMY 08/2019 - ARTHROSCOPY, SHOULDER, SURGI Right 08/2022 SLAP REPAIR and Subacromial Decompression - CHOLECYSTECTOMY - COLONOSCOPY GEN ANES - EGD - F TOTAL ABDOMINAL HYSTERECTOMY - PAST SURGICAL HISTORY OF Bilateral arthroscopic knee surgery- was catcher in college - PAST SURGICAL HISTORY OF 08/2020 gastric sleeve - PICC LINE INSERT/CONSULT 12/24/2020 - VAGINAL DELIVERY AFTER DELIVERY Three C-sections FAMILY HISTORY Problem Relation Age of Onset - Diabetes Mother - Hypertension Mother - Obesity Mother - Hypertension Father - Hypertension Brother - Obesity Brother - Hypertension Brother - Obesity Brother Social History Tobacco Use - Smoking status: Never - Smokeless tobacco: Never Substance Use Topics - Alcohol use: Not Currently - Drug use: Never Comment: denies tx for drug/alcohol abuse in the past. Medications: Reviewed Allergies: ALLERGIES Allergen Reactions - Adhesive Tape-Silic* Intolerance Sensitive to certain adhesive tapes. Redness and itchy. - Codeine GI Upset - Nsaids (Non-Steroid* Contraindication-Medic al Surgical S/p RYGB Review of Systems: Constitutional: Positive for appetite change and fatigue. Negative for chills and fever. Respiratory: Negative for cough and shortness of breath. Cardiovascular: Negative for chest pain. Gastrointestinal: Positive for abdominal pain, constipation, nausea and vomiting. Negative for blood in stool and diarrhea. Genitourinary: Negative for difficulty urinating and dysuria. Musculoskeletal: Negative for back pain. Neurological: Positive for dizziness. OBJECTIVE: PHYSICAL EXAM BP 111/76 Pulse 62 Temp (Src) 98.6 (Oral) Resp 16 Ht 5' 6 (1.68m) Wt 178 lb (80.7kg) SpO2 100% LMP 08/19/2020 BMI 28.74 kg/(m2). O2 Therapy: Room Air Physical Exam Performed: General: Alert and oriented, no distress, pleasant and cooperative HEENT: Normocephalic, atraumatic, MMM Neck: No goiter, lymphadenopathy or JVD. Heart: Regular, normal S1 and S2; no murmurs, rubs, or gallops Lungs: Clear to auscultation bilaterally, not using accessory muscles at this time Abdomen: Soft, diffuse right-sided tenderness without guarding or rebound, bowel sounds present Skin: No suspicious lesions Extremities: (more content not included)... Normal [facility] Lipase SerPl-cCncon 10-26-19 23 Lipase [Catalytic activity/Vol] 29 U/L Normal 16-61 [facility] Comment on above: Order Comment: Speci men Type: BLOOD SPECIMENOrdering Facility: [facility] Address: [address] [place], [place] [id number] Performed By: #### 2 4323-8, 3040-3, ####[facility] LABORATORYCLIA [id number] [place] [address] [facility] Magnesium [facility] Magnesium [Mass/Vol] 1.9 mg/dL Normal 1.7-2.3 [facility] Comment on above: [facility] Comment: [facility] Type: BLOOD SPECIMENOrdering Facility: [facility] Address: [address] [place], [place] [id number] Performed By: #### 2 4323-8, 3040-3, ####[facility] LABORATORYCLIA [id number] [place] [id number] [facility] NURSING PROGon 10-25-2022 NURSING PROG HNO ID: [id number] Author: Itzel Mina, DEE Service: Nursing Author Type: Registered Nurse Type: Nursing Progress Note Filed: 10/25/2022 3:34 PM Note Text: Transfer Note: PATIENT NAME: Abbey Garcia [facility] [place] [address] [place] [address] Patient transferred into room/unit 341 in stable condition. Actions taken: Pt oriented to room. Belongings with pt. Normal [facility] Urinalysis complete panel (U )on 10-25-2022 Bilirubin Ql (U) Negative Normal Negative [facility]al Comment on above: Order Comment: Speci men Type: URINE SPECIMENOrdering Facility: [facility] Address: [address] [place], [place] [address] Performed By: #### 2 4356-8 ####[facility] [id number] [place] [address] [place] Clarity (Unsp spec) Clear Normal Clear [facility] Comment on above: Order Comment: Speci men Type: URINE SPECIMENOrdering Facility: [facility] Address: [address] [address] Performed By: #### 2 4356-8 ####[facility] [id number] [place] [address] [place] Color (U) Colorless Normal yellow [facility] Comment on above: Order Comment: Speci men Type: URINE SPECIMENOrdering Facility: [facility] Address: [address] [address] Performed By: #### 2 4356-8 ####[facility] [id number] [place] [address] [place] Epithelial cells LM.HPF (Urine sed) [#/Area] Few Normal [facility] Comment on above: Order Comment: Speci men Type: URINE SPECIMENOrdering Facility: [facility] Address: [address] [address] Performed By: #### 2 4356-8 ####[facility] [id number] [place] [address] [place] Glucose Test strip (U) [Mass/Vol] Negative Normal Trace, Negative [facility] Comment on above: Order Comment: Speci men Type: URINE SPECIMENOrdering Facility: [facility] Address: [address] [address] Performed By: #### 2 4356-8 ####[facility] [id number] [place] [address] [place] Hemoglobin Ql (U) Negative Normal Negative, Trace [facility] Comment on above: Order Comment: Speci men Type: URINE SPECIMENOrdering Facility: [facility] Address: [address] [address] Performed By: #### 2 4356-8 ####[facility] [id number] [place] [address] [place] Ketones Ql (U) Negative Normal Negative, Trace [facility] Comment on above: Order Comment: Speci men Type: URINE SPECIMENOrdering Facility: [facility] Address: [address] [address] Performed By: #### 2 4356-8 ####[facility] [id number] [place] [address] [place] Leukocyte esterase Test strip Ql (U) Negative Normal Negative, 25 Patito/uL [facility] Comment on above: Order Comment: Speci men Type: URINE SPECIMENOrdering Facility: [facility] Address: [address] [place] [address] Performed By: #### 2 4356-8 ####[facility] [id number] [place] [address] [place] Nitrite Ql (U) Negative Normal Negative [facility] Comment on above: Order Comment: Speci men Type: URINE SPECIMENOrdering Facility: [facility] Address: [address] [place] [address] Performed By: #### 2 4356-8 ####[facility] [id number] [place] [address] [place] pH (U) 6.5 [pH] Normal 5.0-8.0 [facility] Comment on above: Order Comment: Speci men Type: URINE SPECIMENOrdering Facility: [facility] Address: [address] [address] Performed By: #### 2 4356-8 ####[facility] [id number] [place] [address] [place] Protein (U) [Mass/Vol] Negative Normal Trace, Negative [facility] Comment on above: Order Comment: Speci men Type: URINE SPECIMENOrdering Facility: [facility] Address: [address] [place] [address] Performed By: #### 2 4356-8 ####[facility] [id number] [place] [address] [place] RBC LM.HPF (Urine sed) [#/Area] 0-3 /HPF Normal 0-3 /HPF [facility] Comment on above: Order Comment: Speci men Type: URINE SPECIMENOrdering Facility: [facility] Address: [address] [place] [address] Performed By: #### 2 4356-8 ####[facility] [id number] [address] [place] Specific gravity (U) [Rel density] 1.041 High 1.005-1.030 [facility] Comment on above: Order Comment: Speci men Type: URINE SPECIMENOrdering Facility: [facility] Address: [address] [place] [address] Performed By: #### 2 4356-8 ####[facility] [id number] [place] [id number] [facility] Urobilinogen Ql (U) Normal Normal Negative [facility] Comment on above: Order Comment: Speci men Type: URINE SPECIMENOrdering Facility: [facility] Address: [address] [place] [address] Performed By: #### 2 4356-8 ####[facility] [id number] [place] [address] [place] WBC LM.HPF (Urine sed) [#/Area] 0-5 /HPF Normal 0-5 /HPF [facility] Comment on above: Order Comment: Speci men Type: URINE SPECIMENOrdering Facility: [facility] Address: [address] [place] [address] Performed By: #### 2 4356-8 ####[facility] [id number] [place] [id number] [place] XR ABDOMEN (2 VIEWS)on 10-24 XR ABDOMEN (2 VIEWS) EXAMINATION: TWO XRAY VIEWS OF THE ABDOMEN 10/23/2022 7:49 pm COMPARISON: CT 07/27/2021. HISTORY: ORDERING SYSTEM PROVIDED HISTORY: abd pain and n/v TECHNOLOGIST PROVIDED HISTORY: abd pain and n/v FINDINGS: There is no free air. No significant air-fluid levels are noted there is no dilated bowel. No radiopaque renal stone is identified. Multiple phleboliths overlie the pelvis. There has been a cholecystectomy. IMPRESSION: No acute findings with no free air or evidence of bowel obstruction. Interpreted by: Kuldip Laughlin MD Signed by: Kuldip Laughlin MD 10/23/22 Final result Normal [facility] CBC with Diffon 10-23-2022 Abs. Basophil 0.03 k/uL Normal 0.00-0.20 [facility] Comment on above: Performed By: #### L JUDITH BROWN, CDP #### [address] [place] [id number] Otr Driver: Baldomero Espinoza MD Abs.Imm.Granulocyte <0.03 Normal 0.00-0.30 [facility] Comment on above: Performed By: #### L JUDITH BROWN, CDP #### [address] [place], [facility]83 Otr Driver: Baldmoero Espinoza MD Abs.Neutrophil (Seg) 3.51 k/uL Normal 1.50-8.10 [facility] Comment on above: Performed By: #### L JUDITH BROWN, CDP #### [address] [place], [facility]83 Otr Driver: Baldomero Espinoza MD Basophils/100 WBC (Bld) 1 % Normal 0-2 [facility] Comment on above: Performed By: #### L JUDITH BROWN, CDP #### [address] [place], [facility]83 Otr Driver: Baldomero Espinoza MD Eosinophils (Bld) [#/Vol] 0.07 10*3/uL Normal 0.00-0.44 [facility] Comment on above: Performed By: #### L JUDITH BROWN, CDP #### [address] [place], [facility]83 Otr Driver: Baldomero Espinoza MD Eosinophils/100 WBC (Bld) 1 % Normal 1-4 [facility] Comment on above: Performed By: #### L IP, CP, CDP #### [address] [place], [place] [address] Otr Driver: Baldomero Espinoza MD Erythrocyte distribution width (RBC) [Ratio] 12.7 % Normal 11.8-14.4 [facility] Comment on above: Performed By: #### L IP, CP, CDP #### [address] [place] [id number] Otr Driver: Baldomero Espinoza MD Hematocrit (Bld) [Volume fraction] 36.0 % Low 36.3-47.1 [facility] Comment on above: Performed By: #### L IP, CP, CDP #### [address] [place], [facility]83 Otr Driver: Baldomero Espinoza MD Hemoglobin (Bld) [Mass/Vol] 12.2 g/dL Normal 11.9-15.1 [facility] Comment on above: Performed By: #### L IP, CP, CDP #### [address] [place], [facility]83 Otr Driver: Baldomero Espinoza MD Immature granulocytes/100 WBC (Bld) 0 % Normal 0 [facility] Comment on above: Performed By: #### L IP, CP, CDP #### [address] [place], [place] [id number] Otr Driver: Baldomero Espinoza MD Lymphocytes (Bld) [#/Vol] 2.05 10*3/uL Normal 1.10-3.70 [facility] Comment on above: Performed By: #### L IP, CP, CDP #### [address] [place], [facility]83 Otr Driver: Baldomero Espinoza MD Lymphocytes/100 WBC (Bld) 34 % Normal 24-43 [facility] Comment on above: Performed By: #### L IP, CP, CDP #### [facility] [address] [place] [address] Otr Driver: Baldomero Espinoza MD MCH (RBC) [Entitic mass] 30.8 pg Normal 25.2-33.5 [facility] Comment on above: Performed By: #### L IP, CP, CDP #### [facility] [address] [place], [place] [address] Otr Driver: Baldomero Espinoza MD MCHC (RBC) [Mass/Vol] 33.9 g/dL Normal 28.4-34.8 [facility] Comment on above: Performed By: #### L IP, CP, CDP #### [address] [place], [place] [address] Otr Driver: Baldomero Espinoza MD MCV (RBC) [Entitic vol] 90.9 fL Normal 82.6-102.9 [facility] Comment on above: Performed By: #### L IP, CP, CDP #### [address] [place], [place] [address] Otr Driver: Baldomero Espinoza MD Monocytes (Bld) [#/Vol] 0.44 10*3/uL Normal 0.10-1.20 [facility] Comment on above: Performed By: #### L IP, CP, CDP #### [facility] [address] [place], [place] [address] Otr Driver: Baldomero Espinoza MD Monocytes/100 WBC (Bld) 7 % Normal 3-12 [facility] Comment on above: Performed By: #### L IP, CP, CDP #### [facility] [address] [place] [address] Otr Driver: Baldomero Espinoza MD Neutrophil (Seg) 57 % Normal 36-65 [facility] Comment on above: Performed By: #### L IP CP, CDP #### [facility] [address] [place], [place] [address] Otr Driver: Baldomero Espinoza MD NRBC Automated 0.0 per 100 WBC Normal 0.0 [facility] Comment on above: Performed By: #### L IP CP, CDP #### [facility] [address] [place] [id number] Otr Driver: Baldomero Espinoza MD Platelet mean volume (Bld) [Entitic vol] 11.1 fL Normal 8.1-13.5 [facility] Comment on above: Performed By: #### L KEVIN CP, CDP #### [address] [place], [place] [address] Otr Driver: Baldomero Espinoza MD Platelets (Bld) [#/Vol] 226 10*3/uL Normal 138-453 [facility] Comment on above: Performed By: #### L KEVIN CP, CDP #### [address] [place], [place] [id number] Otr Driver: Baldomero Espinoza MD RBC (Bld) [#/Vol] 3.96 10*6/uL Normal 3.95-5.11 [facility] Comment on above: Performed By: #### L KEVIN CP, CDP #### [address] [place], [place] [address] Otr Driver: Baldomero Espinoza MD WBC (Bld) [#/Vol] 6.1 10*3/uL Normal 3.5-11.3 [facility] Comment on above: Performed By: #### L IP, CP, CDP #### [address] [place], [place] [address] Otr Driver: Baldomero Espinoza MD CNPNon 10-23-2022 CNPN Normal [facility] Metabolic Profon 2022 Albumin [Mass/Vol] 4.1 g/dL Normal 3.5-5.2 [facility] Comment on above: Performed By: #### L IP, CP, CDP #### [facility] [address] [place] [address] Otr Driver: Baldomero Espinoza MD Albumin/Glob Ratio 1.7 Normal 1.0-2.5 [facility] Comment on above: Performed By: #### L IP, CP, CDP #### [facility] [address] [place], [place] [id number] Otr Driver: Baldomero Espinoza MD Alkaline Phos 64 U/L Normal 35-104 [facility] Comment on above: Performed By: #### L IP, CP, CDP #### [facility] [address] [place], [place] [id number] Otr Driver: Baldomero Espinoza MD ALT [Catalytic activity/Vol] 19 U/L Normal 5-33 [facility] Comment on above: Performed By: #### L IP CP, CDP #### [facility] [address] [place], [place] [id number] Otr Driver: Baldomero Espinoza MD Anion gap [Moles/Vol] 11 mmol/L Normal 9-17 [facility] Comment on above: Performed By: #### L IP CP, CDP #### [facility] [address] [place], [place] 6951083 Otr Driver: Baldomero Espinoza MD AST [Catalytic activity/Vol] 33 U/L High <32 [facility] Comment on above: Performed By: #### L IP, CP, CDP #### [facility] [address] [place] [address] Otr Driver: Baldomero Espinoza MD Bilirubin [Mass/Vol] 0.5 mg/dL Normal 0.3-1.2 [facility] Comment on above: Performed By: #### L IP, CP, CDP #### [facility] [address] [place], [place] [id number] Otr Driver: Baldomero Espinoza MD BUN/CRE Ratio 14 Normal 9-20 [facility] Comment on above: Performed By: #### L IP, CP, CDP #### [facility] [address] [place], [place] 1972483 Otr Driver: Baldomero Espinoza MD Calcium [Mass/Vol] 9.0 mg/dL Normal 8.6-10.4 [facility] Comment on above: Performed By: #### L IP, CP, CDP #### [facility] [address] [place], [place] 587[address]83 Otr Driver: Baldomero Espinoza MD Chloride [Moles/Vol] 103 mmol/L Normal 98-107 [facility] Comment on above: Performed By: #### L IP, CP, CDP #### [facility] [address] [place], [place] 85[address]83 Otr Driver: Baldomero Espinoza MD CO2 [Moles/Vol] 22 mmol/L Normal 20-31 [facility] Comment on above: Performed By: #### L IP, CP, CDP #### [facility] [address] [place], [place] 9318483 Otr Driver: Baldomero Espinoza MD Creatinine [Mass/Vol] 0.7 mg/dL Normal 0.5-0.9 [facility] Comment on above: Performed By: #### L IP, CP, CDP #### [facility] [address] [place] [address] Otr Driver: Baldomero Espinoza MD GFR/1.73 sq M.predicted among non-blacks MDRD (S/P/Bld) [Vol rate/Area] mL/min/{1.73_m2} Normal >60 [facility] Comment on above: Result Comment: These results are not intended for use in patients <18 years of age. eGFR results are calculated without a race factor using the 2020 CKD-EPI equation. Careful clinical correlation is recommended, particularly when comparing to results calculated using previous equations. The CKD-EPI equation is less accurate in patients with extremes of muscle mass, extra-renal metabolism of creatine, excessive creatine ingestion, or following therapy that affects renal tubular secretion. Performed By: #### L IP, CP, CDP #### [facility] [address] [place] [address] Dr[address] [place], [facility] Otr Driver: Baldomero Espinoza MD Glucose [Mass/Vol] 86 mg/dL Normal 70-99 [facility] Comment on above: Performed By: #### L IP, CP, CDP #### [address] [place], [place] 1358483 Otr Driver: Baldomero Espinoza MD Potassium [Moles/Vol] 3.4 mmol/L Low 3.7-5.3 [facility] Comment on above: Performed By: #### L IP, CP, CDP #### [address] [place] [address] Otr Driver: Baldomero Espinoza MD Protein [Mass/Vol] 6.5 g/dL Normal 6.4-8.3 [facility] Comment on above: Performed By: #### L IP, CP, CDP #### [address] [place], [place] 6672283 Otr Driver: Baldomero Espinoza MD Sodium [Moles/Vol] 136 mmol/L Normal 135-144 [facility] Comment on above: Performed By: #### L IP, CP, CDP #### [facility] [address] [place] [address] [place] [address] Otr Driver: Baldomero Espinoza MD Urea nitrogen [Mass/Vol] 10 mg/dL Normal 6-20 [facility] Comment on above: Performed By: #### L IP, CP, CDP #### [address] [place] [address] Otr Driver: Baldomero Espinoza MD HCG, ,Urineon 10-23 Beta HCG ( test) Ql (U) Negative Normal NEG [facility] Comment on above: Result Comment: Spec imens with hCG levels near the threshold of the test (25 mIU/mL) may give a negative or indeterminate result. In such cases, another test should be performed with a new specimen in 48-72 hours. If early is suspected clinically in this setting, correlation with quantitative serum b-hCG level is suggested. [facility] has confirmed the use of plasma for this test. This has not been cleared or approved by the U.S. Food and Drug Administration. The FDA has determined that such clearance is not necessary. Performed By: #### U HCG, UAMIC #### [facility] [address] [place] [address] Otr Driver: Baldomero Espinoza MD Lactic Acidon 10-23-2022 Lactate [Moles/Vol] 0.8 mmol/L Normal 0.5-2.2 [facility] Comment on above: Performed By: #### L ACTIC #### [facility] [address] [place] [address] Otr Driver: Baldomero Espinoza MD Lipaseon 0 Lipase [Catalytic activity/Vol] 32 U/L Normal 13-60 [facility] Comment on above: Performed By: #### L IP, CP, CDP #### [facility] [address] [place] [address] Otr Driver: Baldomero Espinoza MD Urinalysis w/ Microon 2022 Bacteria 1+ Abnormal NONE [facility] Comment on above: Performed By: #### U HCG, UAMIC ####[facility] [place] [address] Lab Director: Baldomero Espinoza MD Bilirubin, SemiQt,Ur Negative Normal NEG [facility] Comment on above: Performed By: #### U HCG, UAMIC ####[address] , [place] [id number] Lab Director: Baldomero Espinoza MD Blood, Urine Negative Normal NEG [facility] Comment on above: Performed By: #### U HCG, UAMIC ####[address] , [place] [id number] lab Director: Baldomero Espinoza MD Clarity (U) Clear Normal CLEAR [facility] Comment on above: Performed By: #### U HCG, UAMIC ####[address] , [place] 7186583 lab Director: Baldomero Espinoza MD Color (U) Yellow Normal YEL [facility] Comment on above: Performed By: #### U HCG, UAMIC ####[address] , [place] [id number] lab Director: Baldomero Espinoza MD Epithelial cells LM Ql (Urine sed) 2 TO 5 Normal 0-25 [facility] Comment on above: Performed By: #### U HCG, UAMIC ####[address] [place] [address] lab Director: Baldomero Espinoza MD Glucose Ql (U) Negative Normal NEG [facility] Comment on above: Performed By: #### U HCG, UAMIC ####[address] , [place] 539[address]83 lab Director: Baldomero Espinoza MD Ketones Ql (U) Negative Normal NEG [facility] Comment on above: Performed By: #### U HCG, UAMIC ####[address] , [place] 5616683 lab Director: Baldomero Espinoza MD Leukocyte esterase Test strip Ql (U) Negative Normal NEG [facility] Comment on above: Performed By: #### U HCG, UAMIC ####[address] [place] [address] lab Director: Baldomero Espinoza MD Mucus Strands TRACE Abnormal NONE [facility] Comment on above: Performed By: #### U HCG, UAMIC ####[address] [place] [address] lab Director: Baldomero Espinoza MD Nitrite,Ur Negative Normal NEG [facility] Comment on above: Performed By: #### U HCG, UAMIC ####[address] [place] [address] lab Director: Baldomero Espinoza MD PH,Ur 6.5 Normal 5.0-9.0 [facility] Comment on above: Performed By: #### U HCG, UAMIC ####[address] [place] [address] lab Director: Baldomero Espinoza MD Protein Ql (U) Negative Normal NEG [facility] Comment on above: Performed By: #### U HCG, UAMIC ####[address] , [place] 8122983 lab Director: Baldomero Espinoza MD Spec. [place],Ur 1.010 Normal 1.010-1.020 [facility] Comment on above: Performed By: #### U HCG, UAMIC ####[address] [place] [address] lab Director: Baldomero Espinoza MD Urine RBC's 0 TO 2 Normal 0-2 [facility] Comment on above: Performed By: #### U HCG, UAMIC ####[address] [place] [address] lab Director: Baldomero Espinoza MD Urine WBC's 0 TO 2 Normal 0-5 [facility] Comment on above: Performed By: #### U HCG, UAMIC ####[address] , [place] 6980383 lab Director: Baldomero Espinoza MD Urobilinogen,Ur Normal Normal 0.0-1.0 [facility] Comment on above: Performed By: #### U HCG, UAMIC ####[facility] [place] [address] lab Director: Baldomero Espinoza MD Auto Diffon 10-20-2022 Basophils/100 WBC (Bld) 1.0 % Normal 0.0-2.0 [facility] Comment on above: Order Comment: Order Added by Discern Expert. Performed By: #### 2 064800, 21963677, 7686132, 3394483, 45260388, 37647077, 19582696, 2993308 #### [facility] [address] [place] [address] Basophils/Leukocytes Auto (Bld) [Pure # fraction] 0.0 E9/L Normal 0.0-0.2 [facility] Comment on above: Order Comment: Order Added by Discern Expert. Performed By: #### 2 389648, 18175229, 1582187, 8051880, 18024782, 17879997, 47084297, 0176821 #### [facility] [address] [place] [address] Eosinophils/100 WBC (Bld) 2.2 % Normal 0.0-8.0 [facility] Comment on above: Order Comment: Order Added by Discern Expert. Performed By: #### 2 352580, 49906873, 5405846, 9699535, 46234746, 27431413, 62246001, 5042266 #### [facility] [address] [place] [address] Eosinophils/Leukocyte s Auto (Bld) [Pure # fraction] 0.1 E9/L Normal 0.0-0.5 [facility] Comment on above: Order Comment: Order Added by Discern Expert. Performed By: #### 2 491172, 31681006, 5728693, 8114491, 59550587, 43857994, 21128092, 9525461 #### [facility] [address] [place] [address] Lymphocytes/100 WBC (Bld) 35.9 % Normal 14.0-50.0 [facility] Comment on above: Order Comment: Order Added by Discern Expert. Performed By: #### 2 712567, 05651285, 2941176, 0245163, 74793115, 01135368, 26669418, 2352419 #### [facility] [address] [place] [address] Lymphocytes/Leukocyte s Auto (Bld) [Pure # fraction] 1.6 E9/L Normal 1.0-4.0 [facility] Comment on above: Order Comment: Order Added by Discern Expert. Performed By: #### 2 871302, 71741670, 6436633, 4815585, 85059302, 84244151, 16684432, 7846435 #### [facility] [address] [place] [address] Monocytes/100 WBC (Bld) 5.9 % Normal 4.0-14.0 [facility] Comment on above: Order Comment: Order Added by Discern Expert. Performed By: #### 2 748359, 30874996, 0263474, 7274433, 91392616, 54153421, 01078727, 6326501 #### [facility] [address] [place] [address] Monocytes/Leukocytes Auto (Bld) [Pure # fraction] 0.3 E9/L Normal 0.2-1.0 [facility] Comment on above: Order Comment: Order Added by Discern Expert. Performed By: #### 2 958700, 53268019, 1700998, 2160395, 07486804, 62613490, 23550011, 0104964 #### [facility] [address] [place] [address] Neutrophils/100 WBC (Bld) 55.0 % Normal 36.0-75.0 [facility] Comment on above: Order Comment: Order Added by Discern Expert. Performed By: #### 2 055596, 57525084, 8620433, 1965623, 31697221, 26470200, 68723477, 7445092 #### [facility] [address] [place] [address] Neutrophils/Leukocyte s Auto (Bld) [Pure # fraction] 2.5 E9/L Normal 2.0-7.5 [facility] Comment on above: Order Comment: Order Added by Discern Expert. Performed By: #### 2 648240, 11122973, 9497150, 0259835, 78506174, 05344735, 20233997, 4351173 #### [facility] [address] [place] [address] CBC w/ Auto Diffon 3 Erythrocyte distribution width (RBC) [Ratio] 14.0 % Normal 10.9-14.2 [facility] Comment on above: Performed By: #### 2 426134, 95763054, 6929310, 2144267, 22259729, 05036164, 19127534, 4022921 #### [facility] [address] [place] [address] Hematocrit (Bld) [Volume fraction] 40.1 % Normal 34.0-46.0 [facility] Comment on above: Performed By: #### 2 324660, 96450095, 7522175, 1051297, 46032811, 13246985, 97471890, 5887754 #### [facility] [address] [place] [address] Hemoglobin (Bld) [Mass/Vol] 13.7 g/dL Normal 12.0-16.0 [facility] Comment on above: Performed By: #### 2 285446, 21028898, 8602031, 8772544, 55991783, 06048371, 90418567, 1895670 #### [facility] [address] [place] [address] MCH (RBC) [Entitic mass] 30.7 pg Normal 27.0-34.0 [facility] Comment on above: Performed By: #### 2 822150, 32418313, 8337165, 1210851, 20049077, 48334256, 64751007, 5089888 #### [facility] [address] [place] [address] MCHC (RBC) [Mass/Vol] 34.2 g/dL Normal 31.4-36.0 [facility] Comment on above: Performed By: #### 2 038065, 49768997, 7844587, 6656443, 99666422, 23720506, 69760807, 9912409 #### [facility] [address] [place] [address] MCV (RBC) [Entitic vol] 89.9 fL Normal 80.0-100.0 [facility] Comment on above: Performed By: #### 2 409776, 54040740, 2966856, 5878362, 00982206, 45524025, 48197298, 3567863 #### [facility] [address] [place] [address] Platelet mean volume (Bld) [Entitic vol] 9.7 fL Normal 6.4-10.8 [facility] Comment on above: Performed By: #### 2 987464, 16065739, 3011162, 2286529, 35079724, 84114173, 46360608, 6113695 #### [facility] [address] [place] [address] Platelets (Bld) [#/Vol] 258.0 E9/L Normal 150.0-500.0 [facility] Comment on above: Performed By: #### 2 843696, 77269007, 6734602, 0469389, 57807026, 44240145, 14801979, 3570412 #### [facility] [address] [place] [address] RBC (Bld) [#/Vol] 4.5 E12/L Normal 4.3-5.9 [facility] Comment on above: Performed By: #### 2 940666, 18830578, 6592297, 7950053, 78661776, 45151947, 55646287, 2116389 #### [facility] [address] [place] [address] WBC corrected for nucl RBC Auto (Bld) [#/Vol] 4.5 E9/L Normal 4.0-11.0 [facility] Comment on above: Performed By: #### 2 351949, 64127600, 8999612, 0735837, 84336692, 06780325, 68632925, 6780585 #### [facility] [address] [place] [address] CHEMISTRYOrdered By: SYSTEM SYSTEM on 10-20-2022 Albumin [Mass/Vol] 4.2 g/dL Normal 3.3 - 5.0 gm/dL FT Remisol ALP [Catalytic activity/Vol] 55 [iU]/d Normal 21 - 98 Int._Unit/L [facility] Remisol ALT No additional P-5'-P [Catalytic activity/Vol] 27 [iU]/d Normal 6 - 46 Int._Unit/L [facility] Remisol AST [Catalytic activity/Vol] 42 [iU]/d Normal 5 - 43 Int._Unit/L [facility] Bilirubin [Mass/Vol] 0.4 mg/dL Normal 0.0 - 1 .1 mg/dL [facility] Calcium [Mass/Vol] 9.0 mg/dL Normal 8.9 - 11. 1 mg/dL [facility] Chloride [Moles/Vol] 108 mmol/L Normal 101 - 1 11 mmol/L [facility] CO2 [Moles/Vol] 24 mmol/L Normal 21 - 31 mmol/L [facility] Creatinine [Mass/Vol] 0.9 mg/dL Normal 0.5 - 1.3 mg/dL [facility] GFR/1.73 sq M.predicted among non-blacks MDRD (S/P/Bld) [Vol rate/Area] 87 mL/min/1.73 m2 Normal >=59mL/min/1.7 3 m2 [facility] Chem S Lipase [Catalytic activity/Vol] 35 U/L Normal 13 - 58 unit/L [facility] Remisol Potassium [Moles/Vol] 3.8 mmol/L Normal 3.5 - 5.3 mmol/L [facility] Remisol Protein [Mass/Vol] 7.2 g/dL Normal 6.0 - 7.8 gm/dL [facility] Remisol Sodium [Moles/Vol] 139 mmol/L Normal 135 - 145 mmol/L [facility] Remisol Urea nitrogen [Mass/Vol] 11 mg/dL Normal 5 - 21 mg/dL [facility] Remisol CHEMISTRYOrdered By: Pranav Meng on 10-20-2022 Albumin/Globulin [Mass ratio] 1.4 {ratio} Normal 1.1 - 2.2 [facility] Chem S Anion gap [Moles/Vol] 11 mmol/L Normal 6 - 16 mEq/L [facility] Chem S Globulin (S) [Mass/Vol] 3.0 g/dL Normal 1.4 - 4.0 gm/dL [facility] Chem S Glucose [Mass/Vol] 86 mg/dL Normal 55 - 199 mg/dL [facility] Chem S Urea nitrogen/Creatinine [Mass ratio] 12 mg/mg Normal 10 - 20 [facility] Chem S CMPon 10-20-2022 Albumin/Globulin (S) [Mass conc ratio] 1.4 Normal 1.1-2.2 [facility] Comment on above: Performed By: #### 2 400701, 55111653, 8169609, 1902795, 66330068, 24112157, 46726818, 5516760 #### [facility] [address] [place] [address] Anion gap [Moles/Vol] 11 mmol/L Normal 6-16 [facility] Comment on above: Performed By: #### 2 973695, 24042801, 2097307, 1255411, 54959735, 64101663, 25355352, 1386340 #### [facility] [address] [place] [address] Globulin (S) [Mass/Vol] 3.0 g/dL Normal 1.4-4.0 [facility] Comment on above: Performed By: #### 2 394646, 99394754, 6395247, 3281378, 28533522, 01433386, 48043771, 9825175 #### [facility] [address] [place] [address] Glucose [Mass/Vol] 86 mg/dL Normal 55-199 [facility] Comment on above: Result Comment: If t his glucose result represents a fasting glucose, interpretation should refer to the following reference range: 55-99 mg/dL Performed By: #### 2 701903, 84619198, 6268422, 4739156, 98451349, 93004904, 48446589, 3307209 #### [facility] [address] [place] [address] Urea nitrogen/Creatinine [Mass ratio] 12 No Units Normal 10-20 [facility] Comment on above: Performed By: #### 2 714956, 18799910, 0756862, 4024802, 58839378, 85381036, 36037398, 0390740 #### [facility] [address] [place] [address] Albumin [Mass/Vol] 4.2 g/dL Normal 3.3-5.0 [facility] Comment on above: Performed By: #### 2 904759, 01953419, 0518736, 8520340, 85591760, 24182228, 98568310, 1171392 #### [facility] [address] [place] [address] ALP [Catalytic activity/Vol] 55 Int._Unit/L Normal 21-98 [facility] Comment on above: Performed By: #### 2 371944, 97938455, 5071385, 4068681, 29246168, 82835006, 79030038, 8219241 #### [facility] [address] [place] [address] ALT No additional P-5'-P [Catalytic activity/Vol] 27 Int._Unit/L Normal 6-46 [facility] Comment on above: Performed By: #### 2 689642, 89925112, 3183457, 8618270, 80995065, 72250984, 26178034, 4423696 #### [facility] [address] [place] [address] AST [Catalytic activity/Vol] 42 Int._Unit/L Normal 5-43 [facility] Comment on above: Performed By: #### 2 506302, 95426311, 0514261, 4930803, 68382297, 24910806, 88499287, 2042979 #### [facility] [address] [place] [address] Bilirubin [Mass/Vol] 0.4 mg/dL Normal 0.0-1.1 [facility] Comment on above: Performed By: #### 2 411529, 79862636, 4600096, 2308826, 28650401, 52877636, 05395830, 4359896 #### [facility] [address] [place] [address] Calcium [Mass/Vol] 9.0 mg/dL Normal 8.9-11.1 [facility] Comment on above: Performed By: #### 2 007541, 59526469, 8590685, 4645783, 10861944, 41931835, 24060336, 8895263 #### [facility] [address] [place] [address] Chloride [Moles/Vol] 108 mmol/L Normal 101-111 [facility] Comment on above: Performed By: #### 2 969092, 05434382, 5517805, 6147648, 57882588, 05486877, 84506388, 4658625 #### [facility] [address] [place] [address] CO2 [Moles/Vol] 24 mmol/L Normal 21-31 [facility] Comment on above: Performed By: #### 2 922175, 94564894, 7245227, 6305879, 65678661, 98653469, 46901159, 4432932 #### [facility] [address] [place] [address] Creatinine [Mass/Vol] 0.9 mg/dL Normal 0.5-1.3 [facility] Comment on above: Performed By: #### 2 642584, 93754037, 9663052, 5527052, 72759618, 66004152, 61196780, 8755340 #### [facility] [address] [place] [address] Potassium [Moles/Vol] 3.8 mmol/L Normal 3.5-5.3 [facility] Comment on above: Performed By: #### 2 468903, 21908842, 1434962, 6730301, 24501445, 44940819, 47472005, 1771780 #### [facility] [address] [place] [address] Protein [Mass/Vol] 7.2 g/dL Normal 6.0-7.8 [facility] Comment on above: Performed By: #### 2 388675, 98821612, 9790761, 0681992, 17042115, 33981378, 23300770, 3858787 #### [facility] [address] [place] [address] Sodium [Moles/Vol] 139 mmol/L Normal 135-145 [facility] Comment on above: Performed By: #### 2 586160, 02077059, 3221951, 7753261, 37954276, 29330040, 34209068, 2191848 #### [facility] [address] [place] [address] Urea nitrogen [Mass/Vol] 11 mg/dL Normal 5-21 [facility] Comment on above: Performed By: #### 2 473215, 86588953, 8258811, 4953482, 98917072, 28343212, 26918700, 5749849 #### [facility] [address] [place] [address] CNPNon 10-20-2022 CNPN Normal [facility] Abdomen/Pelvis w/o Contrcarito french 10-20-2022 CT Abdomen/Pelvis w/o Contrast Exam Date/Time: 10/20/2022 11:03 EDT Reason for Exam: Pain Report IMPRESSION: No acute process in the unenhanced abdomen/pelvis. Punctate nonobstructing right lower pole calculus. EXAMINATION: CT Abdomen/Pelvis w/o Contrast HISTORY: Pain. Worsening abdominal pain. Back pain. History of appendectomy, cholecystectomy, hysterectomy, and gastric sleeve TECHNIQUE: Non-IV contrast imaging of the abdomen and pelvis was performed using standard technique, scanning from just above the dome of the diaphragm to the symphysis pubis. Unenhanced imaging is limited for the evaluation of some intra-abdominal and pelvic pathology. All CT scans at this facility use dose modulation, iterative reconstruction, and/or weight based dosing when appropriate to reduce radiation dose to as low as reasonably achievable. COMPARISON: CT 12/20/2020. MRI 01/17/2021. RESULT: Abdomen / Pelvis: Liver: Multiple low-attenuation lesions throughout the liver with the largest measuring around 2.0 cm, consistent with benign cysts and unchanged from prior studies. Biliary: Cholecystectomy. No bile duct dilation. Pancreas: Unremarkable. Spleen: No splenomegaly. Adrenals: No mass. Kidneys: Punctate calculus right lower pole. Otherwise no distinct calculi. No hydronephrosis. Subcentimeter hyperdense lesion right lower kidney, probably small hyperdense cyst. GI Tract: Postsurgical changes involving the stomach. Appendectomy. No bowel dilation. Scattered colonic feces. Report Lymph Nodes: No lymphadenopathy. Mesentery/peritoneum/r etroperitoneum: No ascites or mass. Vasculature: No abdominal aortic or iliac artery aneurysm. Pelvis: No significant free fluid. Bladder unremarkable. Bones/Soft Tissues: No acute osseous findings. Areas of stranding of the ventral wall likely postsurgical. Lower thorax: A chest CT performed will be reported separately. Ordering Provider: Lonnie Rios FINAL REPORT Dictated: 10/20/2022 11:26 am Raulito Sims MD Signed (Electronic Signature): 10/20/2022 11:26 am Signed by: Raulito Sims MD Transcribed by: CHANEL Technologist: BAM Technical Comments GFR (mL/min/1/73m2) >60 Contrast: None Contrast amount in ml's: 0 Rectal Contrast Given? No Normal [facility] CT Chest w/o Contraston CT Chest w/o Contrast Exam Date/Time: 10/20/2022 11:03 EDT Reason for Exam: Pneumonia Report IMPRESSION: No acute process in the thorax. EXAMINATION: CT Chest w/o Contrast HISTORY: Worsening abdominal pain. Back pain. Nausea and vomiting. TECHNIQUE: Spiral CT acquisition of the chest from the thoracic inlet to the upper abdomen. Dedicated sagittal and coronal reconstructions. Contrast: None. Unable to obtain IV access. All CT scans at this facility use dose modulation, iterative reconstruction, and/or weight based dosing when appropriate to reduce radiation dose to as low as reasonably achievable. COMPARISON: CT chest 12/28/2020. RESULT: Lung parenchyma and pleura: Central airways grossly patent. No focal consolidation. No pleural effusion. No pneumothorax. Dependent atelectasis. Thoracic inlet, heart, and mediastinum: Visualized thyroid unremarkable. No axillary, mediastinal, or hilar lymphadenopathy. Normal thoracic aorta. Normal pulmonary artery size. Normal heart size. No coronary artery calcifications. No pericardial effusion or thickening. Esophagus nondilated. Bones: No acute osseous findings. No destructive osseous lesions. Soft tissues: Unremarkable. Upper abdomen: See concurrently performed and separately dictated CT. Ordering Provider: Lonnie Rios FINAL REPORT Dictated: 10/20/2022 11:20 am Raulito Sims MD Signed (Electronic Signature): 10/20/2022 11:20 am Signed by: Raulito Sims MD Transcribed by: CHANEL Technologist: BAM Technical Comments GFR (mL/min/1/73m2) >60 Contrast: None Contrast amount in ml's: [address] [facility] Consent for Treatmenton Consent for Treatment [id number]#1.0 0CD:[address] [facility] Discharge Instructionson Discharge Instructions [id number]#1. 00CD:[address] [facility] ED Clinical Summaryon 2022 ED Clinical Summary [address] [address] ED Clinical Summary Person Information Name: ABBEY GARCIA[place] Age: 32 Years : 1990 Sex: Female Language: Burmese PCP: Jaquan Paula Marital Status: Visit Id: Visit Reason: Vomiting; Back pain; Abdominal pain; ABDOMINAL PAIN, BACK PAIN, N/V Speciality: Acuity: 3 Enc Type: Emergency Med Service: Emergency Arrival: 10/20/2022 08:05:03 Discharge: 10/20/2022 12:39:57 LOS: 000 04:34 Checkin: 10/20/2022 08:05:03 Checkout: 10/20/2022 12:39:57 Dispo Type: Home (Routine DC) EVENTS: Event Name Event Status Request Date/Time Start Date/Time Complete Date/Time Arrive Complete 10/20/2022 08:05:03 10/20/2022 08:05:03 10/20/2022 08:05:03 Document Home Meds Request 10/20/2022 08:05:03 Triage Complete 10/20/2022 08:05:03 10/20/2022 08:21:52 10/20/2022 08:21:52 Bed Assign Complete 10/20/2022 08:07:27 10/20/2022 08:07:27 10/20/2022 08:07:27 Dr Exam Complete 10/20/2022 08:07:27 10/20/2022 08:08:48 10/20/2022 08:08:48 RN Exam Complete 10/20/2022 08:07:27 10/20/2022 09:20:42 10/20/2022 09:20:42 Registration Complete 10/20/2022 08:08:48 10/20/2022 08:08:55 10/20/2022 08:08:55 Reg Complete Request 10/20/2022 08:08:55 Reg Bed Request Complete 10/20/2022 08:08:55 10/20/2022 08:08:55 10/20/2022 08:08:55 Dr Exam Complete 10/20/2022 08:09:07 10/20/2022 08:09:07 10/20/2022 08:09:07 Registration Request 10/20/2022 08:09:07 Pending Labs Complete 10/20/2022 08:13:57 10/20/2022 09:10:07 Lab Complete 10/20/2022 08:13:57 10/20/2022 09:10:07 Patient Care Request 10/20/2022 08:13:57 Meds Admin Complete 10/20/2022 08:20:44 10/20/2022 08:38:49 Pending Labs Complete 10/20/2022 08:29:05 10/20/2022 08:29:05 10/20/2022 09:02:13 Lab Complete 10/20/2022 08:29:05 10/20/2022 08:29:05 10/20/2022 09:02:13 Pending Labs Complete 10/20/2022 08:37:54 10/20/2022 08:37:54 10/20/2022 08:38:02 Lab Complete 10/20/2022 08:37:54 10/20/2022 08:37:54 10/20/2022 08:38:02 Pending Labs Complete 10/20/2022 08:39:14 10/20/2022 08:39:14 10/20/2022 08:39:14 Pending Labs Complete 10/20/2022 08:39:23 10/20/2022 08:39:23 10/20/2022 08:39:24 CT Cancel 10/20/2022 09:11:16 10/20/2022 09:30:26 10/20/2022 10:58:45 Pending Labs Complete 10/20/2022 10:23:24 10/20/2022 10:46:54 Lab Complete 10/20/2022 10:23:25 10/20/2022 10:46:54 Urine Collect Complete 10/20/2022 10:23:25 10/20/2022 10:46:54 CT Complete 10/20/2022 10:54:03 10/20/2022 10:54:04 10/20/2022 11:03:55 CT Complete 10/20/2022 10:54:24 10/20/2022 10:54:24 10/20/2022 11:03:55 Meds Admin Complete 10/20/2022 11:22:42 10/20/2022 11:35:04 Discharge Complete 10/20/2022 12:04:39 10/20/2022 12:40:06 10/20/2022 12:40:06 Transfer Complete 10/20/2022 12:40:06 10/20/2022 12:40:06 10/20/2022 12:40:06 AD[address]: [id number] [place] [id number] PHYS DOC NOTES: MEDICAL INFORMATION: Prescriptions Given: New Medications [id number], [address], [place] [id number], [phone] promethazine (promethazine 25 mg Tab) 1 Tablets By Mouth 3 times a day. Refills: 0. Medications to Continue with No Changes Other Medications acetaminophen-oxycodon e (Percocet 5 mg-325 mg oral tablet) 1 Tablets By Mouth every 6 hours for 3 Days. Refills: 0. escitalopram (escitalopram 20 mg Tab) 1 Tablets By Mouth every day. levothyroxine (levothyroxine 100 mcg (0.1 mg) Tab) 1 Tablets By Mouth every day. Refills: 1. liothyronine (liothyronine 5 mcg Tab) 5 Microgram By Mouth every day. Refills: 1. meclizine (Antivert 12.5 mg Tab) 1 Tablets By Mouth 3 times a day as needed for dizziness. Refills: 0. mirtazapine (mirtazapine 15 mg Tab) 1 Tablets By Mouth once a day (at bedtime). ondansetron (ondansetron 4 mg Dis Tab) 1 Tablets By Mouth every 6 hours. Refills: 0. ondansetron (Zofran 4 mg Tab) 1 Tablets By Mouth every 6 hours as needed Nausea. Take one tab by mouth every six hours as needed for nausea. Refills: 0. sucralfate (Carafate 1 g/10 mL Susp-Oral) 10 Milliliter By Mouth 4 times a day. Refills: 0. topiramate (Topamax 100 mg Tab) By Mouth 2 times a day. PATIENT EDUCATION INFORMATION: Instructions: Gastritis, Adult; Abdominal Pain, Adult Follow up: With: Address: When: Jaquan Morrow [address] [place], [place] [id number] Business (1) In 3 days 10/23/2022 DIAGNOSIS: Abdominal pain; Nausea and vomiting Normal [facility] ED Patient Education Noteon 10-20-2022 ED Patient Education Note Gastroenterology Abdominal Pain, Adult Pain in the abdomen (abdominal pain) can be caused by many things. Often, abdominal pain is not serious and it gets better with no treatment or by being treated at home. However, sometimes abdominal pain is serious. Your health care provider will ask questions about your medical history and do a physical exam to try to determine the cause of your abdominal pain. Follow these instructions at home: Medicines ? Take xcap-bfw-pimkdxr and prescription medicines only as told by your health care provider. ? Do not take a laxative unless told by your health care provider. General instructions ? Watch your condition for any changes. ? Drink enough fluid to keep your urine pale yellow. ? Keep all follow-up visits as told by your health care provider. This is important. Contact a health care provider if: ? Your abdominal pain changes or gets worse. ? You are not hungry or you lose weight without trying. ? You are constipated or have diarrhea for more than 2?3 days. ? You have pain when you urinate or have a bowel movement. ? Your abdominal pain wakes you up at night. ? Your pain gets worse with meals, after eating, or with certain foods. ? You are vomiting and cannot keep anything down. ? You have a fever. ? You have blood in your urine. Get help right away if: ? Your pain does not go away as soon as your health care provider told you to expect. ? You cannot stop vomiting. ? Your pain is only in areas of the abdomen, such as the right side or the left lower portion of the abdomen. Pain on the right side could be caused by appendicitis. ? You have bloody or black stools, or stools that look like tar. ? You have severe pain, cramping, or bloating in your abdomen. ? You have signs of dehydration, such as: ? Dark urine, very little urine, or no urine. ? Cracked lips. ? Dry mouth. ? Sunken eyes. ? Sleepiness. ? Weakness. ? You have trouble breathing or chest pain. Summary ? Often, abdominal pain is not serious and it gets better with no treatment or by being treated at home. However, sometimes abdominal pain is serious. ? Watch your condition for any changes. ? Take brwm-gig-fkqfswl and prescription medicines only as told by your health care provider. ? Contact a health care provider if your abdominal pain changes or gets worse. ? Get help right away if you have severe pain, cramping, or bloating in your abdomen. This information is not intended to replace advice given to you by your health care provider. Make sure you discuss any questions you have with your health care provider. Document Revised: 03/22/2020 Document Reviewed: 06/12/2019 [employer] Patient Education ? 2022 [employer] Infectious Disease Gastritis, Adult Gastritis is inflammation of the stomach. There are two kinds of gastritis: ? Acute gastritis. This kind develops suddenly. ? Chronic gastritis. This kind is much more common. It develops slowly and lasts for a long time. Gastritis happens when the lining of the stomach becomes weak or gets damaged. Without treatment, gastritis can lead to stomach bleeding and ulcers. What are the causes? This condition may be caused by: ? An infection. ? Drinking too much alcohol. ? Certain medicines. These include steroids, antibiotics, and some buya-fjr-mnxtqan medicines, such as aspirin or ibuprofen. ? Having too much acid in the stomach. ? Having a disease of the stomach. Other causes may include: ? An allergic reaction. ? Some cancer treatments (radiation). ? Smoking cigarettes or the use of products that contain nicotine or tobacco. In some cases, the cause of this condition is not known. What increases the risk? ? Having a disease of the intestines. ? Having a disease in which the body's immune system attacks the body (autoimmune disease), such as Crohn's disease. ? Using aspirin or ibuprofen and other NSAIDs to treat other conditions, such as heart disease or chronic pain. ? Stress. What are the signs or symptoms? Symptoms of this condition include: ? Pain or a burning sensation in the upper abdomen. ? Nausea. ? Vomiting. ? An uncomfortable feeling of fullness after eating. ? Weight loss. ? Bad breath. ? Blood in your vomit or stool (feces). In some cases, there are no symptoms. How is this diagnosed? This condition may be diagnosed based on your medical history, a physical exam, and tests. Tests may include: ? Your medical history and a description of your symptoms. ? A physical exam. ? Tests. These can include: ? Blood tests. ? Stool tests. ? A test in which a thin, flexible instrument with a light and a camera is passed down the esophagus and into the stomach (upper endoscopy). ? A test in which a tissue sample is removed to look at it under a microscope (biopsy). How is this treated? This condition may be treated with medicine (more content not included)... Normal [facility] ED Patient Summaryon 023 ED Patient Summary [address] [address] Patient Discharge Instructions Person Information Name: ABBEY GARCIA Age: 32 Years Arrival Date: 10/20/2022 08:05:03 Discharge Diagnosis: Abdominal pain; Nausea and vomiting Primary Care Physician: Jaquan Paula Provider Information Primary Provider: Earnest Jett DO Advanced Casting Director:Lonnie Rios PA-C The exam and treatment you received in the Emergency Department were for an urgent problem and are not intended as complete care. It is important that you follow up with a doctor, nurse practitioner, or physician?s phlebotomy lab assistant for ongoing care. If your symptoms become worse or you do not improve as expected and you are unable to reach your usual health care provider, you should return to the Emergency Department. We are available 24 hours a day. ABBEY GARCIA has been given the following list of patient education materials, prescriptions and follow-up instructions: Follow-up Instructions: With: Address: When: Jaquan Morrow [address] [place], [place] [address] [facility] (1) In 3 days 10/23/2022 In the event that this physician does not participate in your insurance network, please consult with your insurance company to find a nearby participating provider. Patient Education Materials: Gastritis, Adult; Abdominal Pain, Adult A MESSAGE TO ALL PATIENTS REGARDING OPIOIDS PRESCRIPTION OPIOIDS: WHAT YOU NEED TO KNOW Prescription opioids can be used to help relieve zckqaqpb-qx-pknrew pain and are often prescribed following a surgery or injury, or for certain health conditions. These medications can be an important part of the treatment but also come with serious risks. It is important to work with your healthcare provider to make sure you are getting the safest, most effective care. WHAT ARE THE RISKS AND SIDE EFFECTS OF OPIOID USE? Prescription opioids carry serious risks of addiction and overdose, especially with prolonged use. An opioid overdose, often marked by slowed breathing, can cause sudden . The use of prescription opioids can have a number of side effects as well, even when taken as directed: ? Tolerance?meaning you might need to take more of the medication for the same pain relief ? Physical dependence?meaning you have symptoms of withdrawal when a medication is stopped ? Increased sensitivity to pain ? Constipation ? Nausea, vomiting, and dry mouth ? Sleepiness and dizziness ? Confusion ? Depression ? Low levels of testosterone that can result in lower sex drive, energy, and strength ? Itching and sweating RISKS ARE GREATER WITH: ? History of drug misuse, substance use disorder, or overdose ? Mental health conditions (such as depression or anxiety) ? Sleep apnea ? Older age (65 years and older) ? Avoid alcohol while taking prescription opioids. Also, unless specifically advised by your health care provider, medications to avoid include: ? Benzodiazepines (such as Xanax or Valium) ? Muscle relaxants (such as Soma or Flexeril) ? Hypnotics (such as Ambien or Lunesta) ? Other prescription opioids KNOW YOUR OPTIONS Talk to your health care provider about ways to manage your pain that don?t involve prescription opioids. Some of these options may actually work better and have fewer risks and side effects. Options may include: ? Pain relievers such as acetaminophen, ibuprofen, and naproxen ? Some medication that are also used for depression or seizures ? Physical therapy and exercise ? Cognitive behavioral therapy, a psychological, goal-directed approach, in which patients learn how to modify physical, behavioral, and emotional triggers of pain and stress. IF YOU ARE PRESCRIBED OPIOIDS FOR PAIN: ? Never take opioids in greater amounts or more often than prescribed. ? Follow up with your primary health care provider. o Work together to create a plan on how to manage your pain. o Talk about ways to help manage your pain that don?t involve prescription opioids. o Talk about any and all concerns and side effects. ? Help prevent misuse and abuse o Never sell or share prescription opioids. o Never use another person?s prescription opioids. ? Store prescription opioids in a secure place and out of reach of others (this may include visitors, children, friends, and family). ? Safely dispose of unused prescription opioids: Find your community drug take-back program or your pharmacy mail-back program, or flush them down the toilet, following guidance from the Food and Drug Administration (www.fda.gov/Drugs/Res ourcesForYou). ? Visit www.cdc.gov/drugoverdo se to learn about the risks of opioids abuse and overdose. ? If you believe you may be struggling with addiction, tell your health healthcare associate and ask for guidance or call [facility]?S National Helpline at 3-946-117-MG (more content not included)... Normal [facility] HEMATOLOGYOrdered By: SYSTEM SYSTEM on 10-20-2022 Basophils/100 WBC (Bld) 1.0 % Normal 0.0 - 2.0 % [facility] Basophils/Leukocytes Auto (Bld) [Pure # fraction] 0.0 E9/L Normal 0.0 - 0.2 E9/L [facility] Eosinophils/100 WBC (Bld) 2.2 % Normal 0.0 - 8.0 % [facility] Eosinophils/Leukocyte s Auto (Bld) [Pure # fraction] 0.1 E9/L Normal 0.0 - 0.5 E9/L [facility] Lymphocytes/100 WBC (Bld) 35.9 % Normal 14.0 - 50.0 % [facility] Lymphocytes/Leukocyte s Auto (Bld) [Pure # fraction] 1.6 E9/L Normal 1.0 - 4.0 E9/L [facility] Monocytes/100 WBC (Bld) 5.9 % Normal 4.0 - 14.0 % [facility] Monocytes/Leukocytes Auto (Bld) [Pure # fraction] 0.3 E9/L Normal 0.2 - 1.0 E9/L [facility] Neutrophils/100 WBC (Bld) 55.0 % Normal 36.0 - 75.0 % [facility] Neutrophils/Leukocyte s Auto (Bld) [Pure # fraction] 2.5 E9/L Normal 2.0 - 7.5 E9/L [facility] HEMATOLOGYOrdered By: Ciara Renteria on 10-20-2022 Erythrocyte distribution width (RBC) [Ratio] 14.0 % Normal 10.9 - 14.2 % [facility] Hematocrit (Bld) [Volume fraction] 40.1 % Normal 34.0 - 46.0 % [facility] Hemoglobin (Bld) [Mass/Vol] 13.7 g/dL Normal 12.0 - 16.0 gm/dL [facility] MCH (RBC) [Entitic mass] 30.7 pg Normal 27.0 - 34.0 pg [facility] MCHC (RBC) [Mass/Vol] 34.2 g/dL Normal 31.4 - 36.0 gm/dL [facility] MCV (RBC) [Entitic vol] 89.9 fL Normal 80.0 - 100.0 fL [facility] Platelet mean volume (Bld) [Entitic vol] 9.7 fL Normal 6.4 - 10.8 fL [facility] Platelets (Bld) [#/Vol] 258.0 E9/L Normal 150.0 - 500.0 E9/L [facility] RBC (Bld) [#/Vol] 4.5 E12/L Normal 4.3 - 5.9 E12/L [facility] WBC corrected for nucl RBC Auto (Bld) [#/Vol] 4.5 E9/L Normal 4.0 - 11.0 E9/L [facility] Lipase Levelon 10-20-2022 Lipase [Catalytic activity/Vol] 35 U/L Normal 13-58 [facility] Comment on above: Performed By: #### 2 980413, 02690561, 6792142, 1295935, 96903858, 13582339, 12174218, 0061014 #### [facility] [address] [place] [address] Prescriptions/Work Noteson 0 10-20-2022 Prescriptions/Work Notes [id number]#1. 00CD:[address] [facility] Prescriptions/Work Notes [id number]#1. 00CD:[address] [facility] Comment on above: Other Comment: scann ed in error UA With Cult Reflexon 2022 Bilirubin Ql (U) Negative Normal Negative [facility] Comment on above: Performed By: #### 2 747732, 32115520, 9210943, 8658246, 38937413, 72701316, 92900455, 0809461 #### [facility] [address] [place] [address] Clarity (U) CLEAR Normal Clear [facility] Comment on above: Performed By: #### 2 725402, 42955777, 7592615, 3177318, 04359816, 95975060, 83755059, 2396599 #### [facility] [address] [place] [address] Color (U) YELLOW Normal Yellow [facility] Comment on above: Performed By: #### 2 937905, 27029250, 8783391, 5242899, 41209238, 41562465, 39198910, 2007072 #### [facility] [address] [place] [address] Epithelial cells.squamous LM.HPF (Urine sed) [#/Area] 3-4 Normal 0-2 [facility] Comment on above: Performed By: #### 2 669590, 78113867, 7642896, 5082557, 01657798, 25457014, 16286150, 1710855 #### [facility] [address] [place] [address] Glucose Test strip (U) [Mass/Vol] Negative Normal Negative [facility] Comment on above: Performed By: #### 2 117865, 64652600, 7796902, 9825415, 71458896, 87042377, 88368715, 5288692 #### [facility] [address] [place] [address] Hemoglobin Ql (U) Negative Normal Negative [facility] Comment on above: Performed By: #### 2 375543, 50768773, 0307641, 2940039, 42526239, 46744638, 40352496, 1471053 #### [facility] [address] [place] [address] Ketones (U) [Mass/Vol] Negative Normal Negative [facility] Comment on above: Performed By: #### 2 976487, 05603285, 6897636, 9334772, 80206087, 82517480, 51520751, 5290471 #### [facility] [address] [place] [address] Aneth.plasma/Lithiu m.RBC (Bld) [Mass ratio] 0-3 Normal 0-3 [facility] Comment on above: Performed By: #### 2 604353, 41660286, 2094018, 8539079, 23110490, 35138334, 41768323, 1741922 #### [facility] [address] [place] [address] Nitrite Ql (U) Negative Normal Negative [facility] Comment on above: Performed By: #### 2 273268, 79057932, 0554155, 5840719, 02521742, 77822139, 04832096, 9026239 #### [facility] [address] [place] [address] pH (U) 7.5 [pH] Invalid Interpretation Code 5.0-9.0 [facility] Comment on above: Performed By: #### 2 389856, 97612238, 5041645, 1939664, 75130341, 14231216, 42084589, 5169386 #### [facility] [address] [place] [address] Protein (U) [Mass/Vol] Negative Normal Negative [facility] Comment on above: Performed By: #### 2 556753, 06789981, 5356378, 8917860, 88559002, 14382713, 57147185, 9930028 #### [facility] [address] [place] [address] Specific gravity (U) [Rel density] 1.015 Invalid Interpretation Code 1.005-1.030 [facility] Comment on above: Performed By: #### 2 325386, 03558424, 2230233, 7828595, 45366090, 55811271, 29979727, 2179329 #### [facility] [address] [place] [address] Type of Urine collection method Clean Catch Normal [facility] Comment on above: Performed By: #### 2 193455, 99531540, 3257532, 9358366, 22210568, 39701083, 10315139, 5126854 #### [facility] [address] [address] Urobilinogen Qn (U) 0.2 {Munir'U}/dL Normal 0.0-1.0 [facility] Comment on above: Performed By: #### 2 645768, 99592584, 9802031, 6335871, 86190144, 33997615, 68980767, 0219629 #### [facility] [address] [place] [address] WBC Auto Ql (U) Negative Normal Negative [facility] Comment on above: Performed By: #### 2 480857, 54401900, 4522108, 6020056, 31669562, 11630894, 03348919, 4477528 #### [facility] [address] [place] [address] WBC LM.HPF (Urine sed) [#/Area] 0-5 Normal 0-5 [facility] Comment on above: Performed By: #### 2 866196, 05950840, 8826424, 9657552, 56164456, 92671526, 30339749, 6766197 #### [facility] [address] [place] [address] URINALYSISOrdered By: Edilberto Meng on 10-20-2022 Bilirubin Ql (U) Negative (10/20/22 10:25 AM) Normal Negative [facility] UA Auto SS Clarity (U) Clear (10/20/22 10:25 AM) Normal Clear [facility] UA Auto SS Color (U) Yellow (10/20/22 10:25 AM) Normal Yellow [facility] UA Auto SS Epithelial cells.squamous LM.HPF (Urine sed) [#/Area] 3-4 /HPF Normal 0-2/HPF [facility] UA Aut o SS Glucose Test strip (U) [Mass/Vol] Negative (10/20/22 10:25 AM) Normal Negative [facility] UA Auto SS Hemoglobin Ql (U) Negative (10/20/22 10:25 AM) Normal Negative [facility]A Auto SS Ketones (U) [Mass/Vol] Negative (10/20/22 10:25 AM) Normal Negative [facility] UA Auto SS Aneth.plasma/Lithiu m.RBC (Bld) [Mass ratio] 0-3 /HPF Normal 0-3/HPF [facility] UA Auto SS Nitrite Ql (U) Negative (10/20/22 10:25 AM) Normal Negative [facility] UA Auto SS pH (U) 7.5 *NA* (10/20/22 10:25 AM) Invalid Interpretation Code 5.0 - 9.0 [facility] UA Auto SS Protein (U) [Mass/Vol] Negative (10/20/22 10:25 AM) Normal Negative [facility] UA Auto SS Specific gravity (U) [Rel density] 1.015 *NA* (10/20/22 10:25 AM) Invalid Interpretation Code 1.005 - 1.030 [facility] UA Auto SS UA Spec Desc Clean Catch (10/20/22 10:25 AM) Normal [facility] UA Auto SS Urobilinogen Qn (U) 0.6074949 {Munir'U}/dL Normal 0.0 - 1.0 EU/dL [facility] UA Auto SS WBC Auto Ql (U) Negative (10/20/22 10:25 AM) Normal Negative [facility] UA Auto SS WBC LM.HPF (Urine sed) [#/Area] 0-5 /HPF Normal 0-5/HPF [facility] UA Auto SS eGFRon 10-20-2022 GFR/1.73 sq M.predicted among non-blacks MDRD (S/P/Bld) [Vol rate/Area] 87 mL/min/1.73 m2 Normal >=59 [facility] Comment on above: Order Comment: Order added by Discern Expert. Result Comment: Electromechanical Inspector yrn kidney disease could be indicated at eGFR's of less than 60 mL/min/1.73m2. Kidney failure is indicated at less than 15 mL/min/1.73m2. Performed By: #### 2 697737, 87552584, 2983400, 3722461, 06819692, 12892966, 01081493, 4406343 #### [facility] [address] [place] [address] Auto DiffOrdered By: SYSTEM SYSTEM on 10-19-2022 Basophils/100 WBC (Bld) 0.8 % Normal 0.0-2.0 [facility] Comment on above: Order Comment: Order Added by Discern Expert. Performed By: #### 2 477978, 67936284, 5736115, 8902693, 99830453, 44216588, 26096792, 9744773 #### [facility] [address] [place] [address] Basophils/Leukocytes Auto (Bld) [Pure # fraction] 0.0 E9/L Normal 0.0-0.2 [facility] Comment on above: Order Comment: Order Added by Discern Expert. Performed By: #### 2 502850, 06000876, 0421299, 5191691, 55324661, 80468152, 16582096, 8337447 #### [facility] [address] [place] [address] Eosinophils/100 WBC (Bld) 3.5 % Normal 0.0-8.0 [facility] Comment on above: Order Comment: Order Added by Discern Expert. Performed By: #### 2 831174, 65895297, 5570985, 1597724, 80062613, 33118691, 52320986, 3576139 #### [facility] [address] [place] [address] Eosinophils/Leukocyte s Auto (Bld) [Pure # fraction] 0.2 E9/L Normal 0.0-0.5 [facility] Comment on above: Order Comment: Order Added by Mariela Expert. Performed By: #### 2 889981, 03613863, 0686166, 5919295, 29133575, 64731958, 59335585, 1639765 #### [facility] [address] [place] [address] Lymphocytes/100 WBC (Bld) 47.3 % Normal 14.0-50.0 [facility] Comment on above: Order Comment: Order Added by Discern Expert. Performed By: #### 2 785835, 98552556, 7656164, 4886472, 76535236, 50962134, 66466972, 8567102 #### [facility] [address] [place] [address] Lymphocytes/Leukocyte s Auto (Bld) [Pure # fraction] 2.1 E9/L Normal 1.0-4.0 [facility] Comment on above: Order Comment: Order Added by Mariela Expert. Performed By: #### 2 784414, 50597356, 3792356, 0828020, 51199227, 60007117, 94121440, 4023884 #### [facility] [address] [place] [address] Monocytes/100 WBC (Bld) 6.6 % Normal 4.0-14.0 [facility] Comment on above: Order Comment: Order Added by Mariela Expert. Performed By: #### 2 281456, 01239506, 5333252, 8984740, 70862905, 38296718, 78967864, 2466390 #### [facility] [address] [place] [address] Monocytes/Leukocytes Auto (Bld) [Pure # fraction] 0.3 E9/L Normal 0.2-1.0 [facility] Comment on above: Order Comment: Order Added by Mariela Expert. Performed By: #### 2 513287, 03281575, 2862669, 2143525, 18231657, 45455933, 63712695, 8999619 #### [facility] [address] [place] [address] Neutrophils/100 WBC (Bld) 41.8 % Normal 36.0-75.0 [facility] Comment on above: Order Comment: Order Added by Discern Expert. Performed By: #### 2 806035, 75185115, 2684192, 8597007, 60323977, 42349911, 36835520, 6989504 #### [facility] [address] [place] [address] Neutrophils/Leukocyte s Auto (Bld) [Pure # fraction] 1.8 E9/L Low 2.0-7.5 [facility] Comment on above: Order Comment: Order Added by Discern Expert. Performed By: #### 2 778058, 85288526, 9904552, 7578432, 57153253, 08138665, 87364159, 9562541 #### [facility] [address] [place] [address] BMPOrdered By: SYSTEM SYSTEM on 10-19-2022 Creatinine [Mass/Vol] 0.8 mg/dL Normal 0.5-1.3 [facility] C Remisol Comment on above: Performed By: #### 2 665916, 90800707, 4505922, 0175118, 97168929, 61605426, 33741423, 3382291 #### [facility] [address] [place] [address] Urea nitrogen [Mass/Vol] 9 mg/dL Normal 5-21 [facility] Comment on above: Performed By: #### 2 968278, 57496388, 1676430, 6476864, 42609516, 78670576, 19812196, 9235742 #### [facility] [address] [place] [address] Anion gap [Moles/Vol] 10 mmol/L Normal 6-16 [facility] Remisol Comment on above: Performed By: #### 2 041586, 58213239, 5335632, 9239978, 97081298, 93648343, 52544241, 8186935 #### [facility] [address] [place] [address] Calcium [Mass/Vol] 9.3 mg/dL Normal 8.9-11.1 [facility] R emisol Comment on above: Performed By: #### 2 086017, 11762874, 6715413, 7044562, 66088625, 92388733, 59396989, 4643789 #### [facility] [address] [place] [address] Chloride [Moles/Vol] 108 mmol/L Normal 101-111 [facility] Remisol Comment on above: Performed By: #### 2 852811, 87552105, 3028346, 4152912, 55395924, 62972971, 59440282, 8018942 #### [facility] [address] [place] [address] CO2 [Moles/Vol] 25 mmol/L Normal 21-31 [facility] Jonathan blade Comment on above: Performed By: #### 2 074680, 16965920, 7197940, 2418000, 18706774, 73354564, 23523564, 4311819 #### [facility] [address] [place] [address] Glucose [Mass/Vol] 83 mg/dL Normal 55-199 [facility] R emisol Comment on above: Result Comment: If t his glucose result represents a fasting glucose, interpretation should refer to the following reference range: 55-99 mg/dL Performed By: #### 2 278193, 55837586, 3508578, 9623954, 90219917, 08299546, 47982083, 8339407 #### [facility] [address] [place] [address] Potassium [Moles/Vol] 4.1 mmol/L Normal 3.5-5.3 [facility] C Remisol Comment on above: Performed By: #### 2 308538, 57961834, 7521304, 0440645, 50397852, 39065699, 44329590, 3381357 #### [facility] [address] [place] [address] Sodium [Moles/Vol] 139 mmol/L Normal 135-145 [facility] R emisol Comment on above: Performed By: #### 2 670398, 99005272, 5467315, 7984554, 28274578, 13995732, 20898264, 1498309 #### [facility] [address] [place] [address] BMPon 10-19-2022 Urea nitrogen/Creatinine [Mass ratio] 11 No Units Normal 10-20 [facility] Comment on above: Performed By: #### 2 218520, 34744322, 4255718, 3659266, 35861205, 28927349, 58609960, 3343293 #### [facility] [address] [place] [address] CBC w/ Auto DiffOrdered By: Kaye Das on 10-19-2022 Erythrocyte distribution width (RBC) [Ratio] 13.7 % Normal 10.9-14.2 [facility] Comment on above: Performed By: #### 2 047174, 92603942, 0654180, 2775239, 39200734, 82065428, 12331120, 8715442 #### [facility] [address] [place] [address] Hematocrit (Bld) [Volume fraction] 40.7 % Normal 34.0-46.0 [facility] Comment on above: Performed By: #### 2 080949, 18202845, 0060758, 2327124, 19472856, 55297418, 25005155, 6038680 #### [facility] [address] [place] [address] Hemoglobin (Bld) [Mass/Vol] 14.1 g/dL Normal 12.0-16.0 [facility] Comment on above: Performed By: #### 2 069077, 73780851, 1762723, 2152256, 65433047, 02919581, 24220086, 2765984 #### [facility] [address] [place] [address] MCH (RBC) [Entitic mass] 31.0 pg Normal 27.0-34.0 [facility] Comment on above: Performed By: #### 2 017773, 66198400, 5676388, 3736567, 05222967, 05485422, 72131770, 3801075 #### [facility] [address] [place] [address] MCHC (RBC) [Mass/Vol] 34.5 g/dL Normal 31.4-36.0 [facility] Comment on above: Performed By: #### 2 151871, 72139431, 4043360, 9628996, 74132741, 21875647, 84882219, 9754784 #### [facility] [address] [place] [address] MCV (RBC) [Entitic vol] 89.8 fL Normal 80.0-100.0 [facility] Comment on above: Performed By: #### 2 045972, 38690812, 3720062, 7692886, 29325197, 42940237, 73633640, 4166654 #### [facility] [address] [place] [address] Platelet mean volume (Bld) [Entitic vol] 10.3 fL Normal 6.4-10.8 [facility] Comment on above: Performed By: #### 2 303600, 19232352, 8299744, 3125669, 16512695, 97170773, 84923101, 6687946 #### [facility] [address] [place] [address] Platelets (Bld) [#/Vol] 245.0 E9/L Normal 150.0-500.0 [facility] Comment on above: Performed By: #### 2 917711, 99098853, 0014248, 0525625, 89693501, 16004128, 45184701, 8734902 #### [facility] [address] [place] [address] RBC (Bld) [#/Vol] 4.5 E12/L Normal 4.3-5.9 [facility] Comment on above: Performed By: #### 2 142106, 91770885, 9913072, 0401276, 96884956, 47947188, 53430944, 3759395 #### [facility] [address] [place] [address] WBC corrected for nucl RBC Auto (Bld) [#/Vol] 4.4 E9/L Normal 4.0-11.0 [facility] Comment on above: Performed By: #### 2 920721, 73415139, 5178308, 8637774, 80639564, 91964115, 69224398, 0402724 #### [facility] [address] [place] [address] CHEMISTRYOrdered By: SYSTEM SYSTEM on 10-19-2022 Albumin/Globulin [Mass ratio] 1.5 {ratio} Normal 1.1 - 2.2 [facility] ALP [Catalytic activity/Vol] 63 [iU]/d Normal 21 - 98 Int._Unit/L [facility] ALT No additional P-5'-P [Catalytic activity/Vol] 30 [iU]/d Normal 6 - 46 Int._Unit/L [facility] AST [Catalytic activity/Vol] 47 [iU]/d High 5 - 43 Int._Unit/L [facility] Bilirubin.indirect [Mass or moles/Vol] Unable to Calculate mg/dL Invalid Interpretation Code 0.1 - 0.9 mg/dL [facility] Urea nitrogen/Creatinine [Mass ratio] 11 mg/mg Normal 10 - 20 [facility] Consent for Treatmenton Consent for Treatment [id number] 0CD:[address] [facility] Discharge Instructionson Discharge Instructions [id number] CD:[address] [facility] ED Clinical Summaryon 2022 ED Clinical Summary [address] [address] ED Clinical Summary Person Information Name: ABBEY GARCIA[place] Age: 32 Years : 1990 Sex: Female Language: Burmese PCP: Jaquan Paula Marital Status: Visit Id: Visit Reason: Nausea; Constipation; Flank pain; LOWER BACK AND RIGHT FLANK PAIN, BOWEL ISSUES Speciality: Acuity: 3 Enc Type: Emergency Med Service: Emergency Arrival: 10/19/2022 08:29:35 Discharge: 10/19/2022 14:09:00 LOS: 000 05:40 Checkin: 10/19/2022 08:29:35 Checkout: 10/19/2022 14:09:00 Dispo Type: Home (Routine DC) EVENTS: Event Name Event Status Request Date/Time Start Date/Time Complete Date/Time Arrive Complete 10/19/2022 08:29:35 10/19/2022 08:29:35 10/19/2022 08:29:35 Document Home Meds Request 10/19/2022 08:29:35 Triage Complete 10/19/2022 08:29:35 10/19/2022 08:44:18 10/19/2022 08:44:18 Registration Complete 10/19/2022 08:32:50 10/19/2022 08:32:50 10/19/2022 08:32:50 Reg Complete Request 10/19/2022 08:32:50 Reg Bed Request Complete 10/19/2022 08:32:50 10/19/2022 08:32:50 10/19/2022 08:32:50 Bed Assign Complete 10/19/2022 08:33:40 10/19/2022 08:33:40 10/19/2022 08:33:40 Dr Exam Complete 10/19/2022 08:33:40 10/19/2022 08:35:14 10/19/2022 08:35:14 RN Exam Complete 10/19/2022 08:33:40 10/19/2022 09:41:53 10/19/2022 09:41:53 Registration Request 10/19/2022 08:35:14 Meds Admin Complete 10/19/2022 08:50:32 10/19/2022 09:18:22 Pending Labs Complete 10/19/2022 08:50:32 10/19/2022 09:47:48 Lab Complete 10/19/2022 08:50:32 10/19/2022 09:47:48 Urine Collect Complete 10/19/2022 08:50:32 10/19/2022 09:46:08 Pending Labs Complete 10/19/2022 09:06:33 10/19/2022 09:06:33 10/19/2022 09:37:09 Lab Complete 10/19/2022 09:06:33 10/19/2022 09:06:33 10/19/2022 09:37:09 Pending Labs Complete 10/19/2022 09:28:59 10/19/2022 09:28:59 10/19/2022 09:29:00 Pending Labs Complete 10/19/2022 09:47:48 10/19/2022 09:47:48 10/19/2022 09:47:56 Lab Complete 10/19/2022 09:47:48 10/19/2022 09:47:48 10/19/2022 09:47:56 Meds Admin Complete 10/19/2022 10:13:38 10/19/2022 10:21:43 Pending Labs Complete 10/19/2022 11:01:41 10/19/2022 11:01:41 10/19/2022 11:01:42 X-Ray Complete 10/19/2022 11:19:39 10/19/2022 11:35:55 10/19/2022 12:14:34 Wet Read Complete 10/19/2022 12:14:34 10/19/2022 12:15:10 10/19/2022 12:15:10 Meds Admin Complete 10/19/2022 12:18:18 10/19/2022 12:26:17 Meds Admin Complete 10/19/2022 12:18:38 10/19/2022 12:26:17 Pending Labs Cancel 10/19/2022 12:28:33 10/19/2022 12:30:38 Pending Labs Complete 10/19/2022 12:31:04 10/19/2022 12:31:04 10/19/2022 12:59:39 Meds Admin Complete 10/19/2022 12:34:53 10/19/2022 13:03:19 Meds Admin Complete 10/19/2022 12:36:27 10/19/2022 12:39:23 Discharge Complete 10/19/2022 13:39:48 10/19/2022 14:09:10 10/19/2022 14:09:10 Transfer Complete 10/19/2022 14:09:10 10/19/2022 14:09:10 10/19/2022 14:09:10 ADDRESS: [address] [place] [id number] PHYS DOC NOTES: MEDICAL INFORMATION: Prescriptions Given: New Medications [facility] #[id number], [address] [place] [address] [phone], [phone] acetaminophen-oxycodon e (Percocet 5 mg-325 mg oral tablet) 1 Tablets By Mouth every 6 hours for 3 Days. Refills: 0. sucralfate (Carafate 1 g/10 mL Susp-Oral) 10 Milliliter By Mouth 4 times a day. Refills: 0. Medications to Continue Taking That Have Changed [facility]/pharmacy #[id number], [address] [place] [address] [phone], [phone] START: ondansetron (Zofran 4 mg Tab) 1 Tablets By Mouth every 6 hours as needed Nausea. Take one tab by mouth every six hours as needed for nausea. Refills: 0. Other Medications START: ondansetron (ondansetron 4 mg Dis Tab) 1 Tablets By Mouth every 6 hours. Refills: 0. Medications to Continue with No Changes Other Medications escitalopram (escitalopram 20 mg Tab) 1 Tablets By Mouth every day. levothyroxine (levothyroxine 100 mcg (0.1 mg) Tab) 1 Tablets By Mouth every day. Refills: 1. liothyronine (liothyronine 5 mcg Tab) 5 Microgram By Mouth every day. Refills: 1. meclizine (Antivert 12.5 mg Tab) 1 Tablets By Mouth 3 times a day as needed for dizziness. Refills: 0. mirtazapine (mirtazapine 15 mg Tab) 1 Tablets By Mouth once a day (at bedtime). topiramate (Topamax 100 mg Tab) By Mouth 2 times a day. PATIENT EDUCATION INFORMATION: Instructions: Follow up: With: Address: When: Jon Kishanmicaela La [facility], [address], [address] [address] [phone] Business (1) In 3 days 10/22/2022 With: Address: When: Your GI physician In 3 days 10/22/2022 With: Address: When: Jaquan Morrow [address] [place], [place] [id number] Business (1) In 3 days DIAGNOSIS: Abdominal pain; Abnormal serum lipase level; Gastritis; Vomiting Normal [facility] ED Note-Physicianon 10-20-19 ED Note-Physician Basic Information Time Seen: Earnest Jett DO 10/19/2022 08:35 Chief Complaint Pt states that since wednesday that she has pain in her back. Pt states that she has a known kidney stone. States that she had a scan done at other hospital and states she passed one kidney stone. Pt states that her pain is worse with activity History of Present Illness 32 female presents to the emergency department with right-sided flank pain. Patient states that she had this pain in her back since Wednesday or Wednesday. She was out of town at a wedding in [place] when she went to the emergency department there she believes that she had blood work and a CT scan done at that time. They were concerned that she either passed a stone or she did have a kidney stone but not necessarily ureterolithiasis. Patient states that her pain is now worse and she has intractable nausea and vomiting with this as well. She has had multiple abdominal surgeries including hysterectomy appendectomy cholecystectomy and gastric bypass surgery with revision. Patient did state that she believes that she still has her left ovary but does not have her right ovary and her pain is on the right side. She is also noticed that her stools seem to be long and thin and this was concerning to her as well. She reports no urinary symptoms she just states there is a pressure in her right flank region. No other aggravating or relieving factors no other associated symptoms no other prior treatments or complaints. Family: Reviewed and noncontributory Social: lives at home Review of systems negative unless otherwise specified in the HPI. Physical Exam Vitals & Measurements T: 35.9 ?C(Oral) HR: 73(Peripheral) RR: 20 BP: 149/101 SpO2: 100% HT: 168 cm WT: 85.6 kg BMI: 30.33 General: The patient appears well and in no apparent distress. Patient is resting comfortably on cart. Skin: Warm, dry, mild pallor noted. Head: Normocephalic, atraumatic Neck: No JVD Eye: PERRLA, EOMI ENT: Moist mucus membranes Cardiovascular: Regular rate normal peripheral perfusion Respiratory: No respiratory distress no accessory muscle use no obvious audible wheezing Chest Wall: no deformity Musculoskeletal: normal ROM, no deformity, no swelling GI: Soft no obvious distention. No rebound or rigidity. No guarding. Mild right-sided CVA and right-sided abdominal tenderness. Neurological: A&O moves all extremities equal strength and symmetry Psychiatric: Cooperative and appropriate Medical Decision Making MEDICAL DECISION MAKING Number and Complexity of Problems Differential Diagnosis: MDM Data External documents reviewed: I did review urinalysis labs and CT which were performed yesterday. CT scan did reveal punctate renal calculus but no evidence of ureterolithiasis. There is also a renal cyst identified on this. Urinalysis and labs are otherwise benign. My EKG interpretation: in chart if applicable My CT interpretation: in chart if applicable My X-ray interpretation: in chart if applicable My Ultrasound interpretation: Decision rules/scores evaluated: Discussed with: Treatment and Disposition ED Course: Work-up in the ER has been reviewed and noted. CT scan was not repeated today as she just had one done less than 24 hours ago. I did review records as above. Did have minor elevation of lipase and we did speak about this. Patient may have underlying peptic ulcer disease and she should follow-up with her GI physician. She did experience some relief with the Maalox in addition to the other medications for pain and nausea. Ultimately she will be discharged home to follow-up with GI in the outpatient setting. She is already taking PPI we will add Carafate Zofran as needed for nausea and she is given Percocet for pain and provided with a note for work. She is comfortable being discharged home now. Shared decision making: Code status: Assessment/Plan Abdominal pain (R10.9: Unspecified abdominal pain) Ordered: acetaminophen-oxycodon e, 1 tab(s), Oral, q6hr for 3 day(s), 10 tab(s), Refill(s) 0, [facility]/pharmacy #[id number], 168, cm, 10/19/22 8:44:00 EDT, Height/Length Dosing, 85.6, kg, 10/19/22 8:44:00 EDT, Weight Dosing Abnormal serum lipase level (R74.8: Abnormal levels of other serum enzymes) Gastritis (K29.70: Gastritis, unspecified, without bleeding) Vomiting (R11.10: Vomiting, unspecified) Orders: Al hydroxide/Mg hydroxide/simethicone, 30 mL, Susp-Oral, Oral, Once, Stop date 10/19/22 12:34:00 EDT, STAT, Start date 10/19/22 12:34:00 EDT atropine/hyoscyamine/P B/scopolamine, 10 mL, Elixir, Oral, Once, Stop date 10/19/22 12:34:00 EDT, STAT, Start date 10/19/22 12:34:00 EDT diazepam, 5 mg = 1 mL, Injection, IV Push, Once, Stop date 10/19/22 10:13:00 EDT, STAT, Start date 10/19/22 10:13:00 EDT, 10/19/22 10:13:00 EDT ketorolac, 15 mg = 1 mL, Injection, IV Push, Once, Stop date 10/19/22 12:18:00 EDT, STAT, Start date 10/19/22 12:18:00 EDT, 10/19/22 12:18:00 EDT morphine, 4 mg = 2 mL, Injection, IV Push, Once, (more content not included)... Normal [facility] Comment on above: Result Comment: Elec tronically Signed By: Earnest Jett DO\.br\Date and Time Signed: 10/19/22 13:41 EDT ED Patient Education Noteon 10-19-2022 ED Patient Education Note Normal [facility] ED Patient Summaryon 023 ED Patient Summary [place] [address] Patient Discharge Instructions Person Information Name: ABBEY GARCIA Age: 32 Years [facility]: [id number] Arrival Date: 10/19/2022 08:29:35 Discharge Diagnosis: Abdominal pain; Abnormal serum lipase level; Gastritis; Vomiting Primary Care Physician: Jaquan Paula Provider Information Primary Provider: Earnest Jett DO Advanced Casting Director:None The exam and treatment you received in the Emergency Department were for an urgent problem and are not intended as complete care. It is important that you follow up with a doctor, nurse practitioner, or physician?s phlebotomy lab assistant for ongoing care. If your symptoms become worse or you do not improve as expected and you are unable to reach your usual health care provider, you should return to the Emergency Department. We are available 24 hours a day. ABBEY GARCIA has been given the following list of patient education materials, prescriptions and follow-up instructions: Follow-up Instructions: With: Address: When: Jon Rivera [address] [place] [address] [address] [place] [id number] [phone] [employer] (1) In 3 days 10/22/2022 With: Address: When: Your GI physician In 3 days 10/22/2022 With: Address: When: Jaquan Morrow [address] [place], [place] [id number] [employer] (1) In 3 days In the event that this physician does not participate in your insurance network, please consult with your insurance company to find a nearby participating provider. Patient Education Materials: A MESSAGE TO ALL PATIENTS REGARDING OPIOIDS PRESCRIPTION OPIOIDS: WHAT YOU NEED TO KNOW Prescription opioids can be used to help relieve ynwjrhxk-xx-pnkopr pain and are often prescribed following a surgery or injury, or for certain health conditions. These medications can be an important part of the treatment but also come with serious risks. It is important to work with your healthcare provider to make sure you are getting the safest, most effective care. WHAT ARE THE RISKS AND SIDE EFFECTS OF OPIOID USE? Prescription opioids carry serious risks of addiction and overdose, especially with prolonged use. An opioid overdose, often marked by slowed breathing, can cause sudden . The use of prescription opioids can have a number of side effects as well, even when taken as directed: ? Tolerance?meaning you might need to take more of the medication for the same pain relief ? Physical dependence?meaning you have symptoms of withdrawal when a medication is stopped ? Increased sensitivity to pain ? Constipation ? Nausea, vomiting, and dry mouth ? Sleepiness and dizziness ? Confusion ? Depression ? Low levels of testosterone that can result in lower sex drive, energy, and strength ? Itching and sweating RISKS ARE GREATER WITH: ? History of drug misuse, substance use disorder, or overdose ? Mental health conditions (such as depression or anxiety) ? Sleep apnea ? Older age (65 years and older) ? Avoid alcohol while taking prescription opioids. Also, unless specifically advised by your health care provider, medications to avoid include: ? Benzodiazepines (such as Xanax or Valium) ? Muscle relaxants (such as Soma or Flexeril) ? Hypnotics (such as Ambien or Lunesta) ? Other prescription opioids KNOW YOUR OPTIONS Talk to your health care provider about ways to manage your pain that don?t involve prescription opioids. Some of these options may actually work better and have fewer risks and side effects. Options may include: ? Pain relievers such as acetaminophen, ibuprofen, and naproxen ? Some medication that are also used for depression or seizures ? Physical therapy and exercise ? Cognitive behavioral therapy, a psychological, goal-directed approach, in which patients learn how to modify physical, behavioral, and emotional triggers of pain and stress. IF YOU ARE PRESCRIBED OPIOIDS FOR PAIN: ? Never take opioids in greater amounts or more often than prescribed. ? Follow up with your primary health care provider. o Work together to create a plan on how to manage your pain. o Talk about ways to help manage your pain that don?t involve prescription opioids. o Talk about any and all concerns and side effects. ? Help prevent misuse and abuse o Never sell or share prescription opioids. o Never use another person?s prescription opioids. ? Store prescription opioids in a secure place and out of reach of others (this may include visitors, children, friends, and family). ? Safely dispose of unused prescription opioids: Find your community drug take-back program or your pharmacy mail-back program, or flush them down the toilet, following guidance from the Food and Drug Administration (www.fda.gov/Drugs/Res ourcesForYou). ? Visit www.cdc.gov/drugoverdo se to learn about the risks of opioids abuse and overdo (more content not included)... Normal [facility] Hep Func Panelon 10-19-2022 Bilirubin.indirect [Mass or moles/Vol] UTC Abnormal 0.1-0.9 [facility] Comment on above: Result Comment: Resu lt verified by Discern Rule. Performed result UT (Unable to Calculate) was sent as an Alpha code due the inability to calculate a valid numeric value. Performed By: #### 2 082376, [id number], 4992156, 0105876, 66518331, 84874950, 77924995, 7543642 #### [facility] [address] [place] [address] Albumin/Globulin (S) [Mass conc ratio] 1.5 Normal 1.1-2.2 [facility] Comment on above: Performed By: #### 2 394056, 69261848, 1734491, 5532757, 53236324, 77519658, 96803475, 8030848 #### [facility] [address] [place] [address] ALP [Catalytic activity/Vol] 63 Int._Unit/L Normal 21-98 [facility] Comment on above: Performed By: #### 2 072334, 68889672, 3606749, 9508190, 43297080, 66544681, 10142956, 4758115 #### [facility] [address] [place] [address] ALT No additional P-5'-P [Catalytic activity/Vol] 30 Int._Unit/L Normal 6-46 [facility] Comment on above: Performed By: #### 2 180402, 83439377, 8878003, 6572808, 59234202, 35201326, 15774162, 2840960 #### [facility] [address] [place] [address] AST [Catalytic activity/Vol] 47 Int._Unit/L High 5-43 [facility] Comment on above: Performed By: #### 2 409675, 93551370, 5398821, 9983458, 47851070, 76702838, 67639915, 2052031 #### [facility] [address] [place] [address] Hep Func PanelOrdered By: [employer] SYSTEM on 10-19-2022 Albumin [Mass/Vol] 4.4 g/dL Normal 3.3-5.0 [facility] Comment on above: Performed By: #### 2 963854, 91772414, 9491504, 5045320, 55753297, 60363134, 72634244, 0801758 #### [facility] [address] [place] [address] Bilirubin [Mass/Vol] 0.5 mg/dL Normal 0.0-1.1 [facility] Comment on above: Performed By: #### 2 273761, 71233322, 5956782, 6509771, 08210773, 83036353, 32143111, 8893729 #### [facility] [address] [place] [address] Globulin (S) [Mass/Vol] 3.0 g/dL Normal 1.4-4.0 [facility] Comment on above: Performed By: #### 2 572821, 30990450, 8989479, 6055261, 79885831, 15800301, 63705556, 3682852 #### [facility] [address] [place] [address] Protein [Mass/Vol] 7.4 g/dL Normal 6.0-7.8 [facility] Comment on above: Performed By: #### 2 886192, 36646272, 6120746, 5584877, 94905211, 44092363, 45151008, 1226428 #### [facility] [address] [place] [address] Bilirubin.direct [Mass/Vol] mg/dL Normal 0.1-0.4 [facility] Comment on above: Performed By: #### 2 088388, 12675388, 6558283, 1844048, 53797193, 42920289, 88208359, 9644521 #### [facility] [address] [place] [address] Lipase LevelOrdered By: SYST EM SYSTEM on 10-19-2022 Lipase [Catalytic activity/Vol] 89 U/L High 13-58 [facility] Comment on above: Performed By: #### 2 960594, 15488328, 8779871, 3602746, 37107264, 04898809, 92061188, 4575231 #### [facility] [address] [place] [address] Prescriptions/Work Noteson 0 10-19-2022 Prescriptions/Work Notes [id number]#1.00 CD:[address] [facility] TSH With T4fr ReflexOrdered By: SYSTEM SYSTEM on 10-19-2022 TSH Qn 0.68 m[IU]/L Normal 0.34-5.60 [facility] Comment on above: Performed By: #### 2 033132, 62608880, 1381224, 1276772, 63386590, 32788378, 90053163, 9858675 #### [facility] [address] [place] [address] UA With Cult Reflexon 2022 Bilirubin Ql (U) Negative Normal Negative [facility] Comment on above: Performed By: #### 2 146500, 12100932, 2660831, 1514680, 24075613, 77789647, 42862279, 7405349 #### [facility] [address] [place] [address] Clarity (U) CLEAR Normal Clear [facility] Comment on above: Performed By: #### 2 677571, 92384226, 6012987, 7485888, 09609718, 62974217, 84468536, 9476187 #### [facility] [address] [place] [address] Color (U) YELLOW Normal Yellow [facility] Comment on above: Performed By: #### 2 669064, 71232481, 9056115, 6128756, 99491387, 52816828, 00404588, 1927150 #### [facility] [address] [place] [address] Epithelial cells.squamous LM.HPF (Urine sed) [#/Area] 0-2 Normal 0-2 [facility] Comment on above: Performed By: #### 2 469160, 49356375, 9013152, 3199393, 08212420, 83777301, 16726444, 2515137 #### [facility] [address] [place] [address] Glucose Test strip (U) [Mass/Vol] Negative Normal Negative [facility] Comment on above: Performed By: #### 2 267620, 00056546, 8536043, 1407636, 98577553, 24025578, 41537118, 8620428 #### [facility] [address] [place] [address] Hemoglobin Ql (U) Negative Normal Negative [facility] Comment on above: Performed By: #### 2 945856, 13049178, 2398696, 0899252, 06682995, 86441002, 23382898, 5554636 #### [facility] [address] [place] [address] Ketones (U) [Mass/Vol] Negative Normal Negative [facility] Comment on above: Performed By: #### 2 454274, 42809454, 0103743, 8406698, 88435473, 07659804, 03096283, 8550536 #### [facility] [address] [place] [address] Aneth.plasma/Lithiu m.RBC (Bld) [Mass ratio] 0-3 Normal 0-3 [facility] Comment on above: Performed By: #### 2 279332, 12266092, 6156683, 9965584, 01741403, 28202232, 95788564, 7231859 #### [facility] [address] [place] [address] Nitrite Ql (U) Negative Normal Negative [facility] Comment on above: Performed By: #### 2 795065, 06659776, 8706719, 8145488, 72181903, 72999691, 71403472, 3075178 #### [facility] [address] [place] [address] pH (U) 7.5 [pH] Invalid Interpretation Code 5.0-9.0 [facility] Comment on above: Performed By: #### 2 613192, 21064751, 3861918, 6502885, 37441426, 46684215, 24095584, 8251625 #### [facility] [address] [place] [address] Protein (U) [Mass/Vol] Negative Normal Negative [facility] Comment on above: Performed By: #### 2 324593, 37707767, 0697237, 0689191, 01366297, 70260928, 52735763, 0500040 #### [facility] [address] [place] [address] Specific gravity (U) [Rel density] 1.010 Invalid Interpretation Code 1.005-1.030 [facility] Comment on above: Performed By: #### 2 534460, 19274027, 5189974, 1125889, 22289681, 30582083, 81205854, 5871396 #### [facility] [address] [place] [address] Type of Urine collection method Clean Catch Normal [facility] Comment on above: Performed By: #### 2 560243, 17111274, 5888164, 2608134, 98398825, 11653907, 83328154, 8273817 #### [facility] [address] [place] [address] Urobilinogen Qn (U) 0.2 {Munir'U}/dL Normal 0.0-1.0 [facility] Comment on above: Performed By: #### 2 177622, 32529603, 1271502, 4789652, 25329684, 47799832, 77338372, 0427052 #### [facility] [address] [place] [address] WBC Auto Ql (U) Negative Normal Negative [facility] Comment on above: Performed By: #### 2 875945, 07831141, 5476225, 2393596, 56369931, 53385781, 81358829, 6929265 #### [facility] [address] [place] [address] WBC LM.HPF (Urine sed) [#/Area] 0-5 Normal 0-5 [facility] Comment on above: Performed By: #### 2 523158, 10703058, 4464347, 6521062, 58311256, 44372450, 86160541, 9083302 #### [facility] [address] [place] [address] URINALYSISOrdered By: Kaye brito on 10-19-2022 Bilirubin Ql (U) Negative (10/19/22 9:18 AM) Normal Negative [facility] UA Auto SS Clarity (U) Clear (10/19/22 9:18 AM) Normal Clear [facility] UA Auto SS Color (U) Yellow (10/19/22 9:18 AM) Normal Yellow [facility] UA Auto SS Epithelial cells.squamous LM.HPF (Urine sed) [#/Area] 0-2 /HPF Normal 0-2/HPF [facility] UA Aut o SS Glucose Test strip (U) [Mass/Vol] Negative (10/19/22 9:18 AM) Normal Negative [facility] UA Auto SS Hemoglobin Ql (U) Negative (10/19/22 9:18 AM) Normal Negative [facility] UA Auto SS Ketones (U) [Mass/Vol] Negative (10/19/22 9:18 AM) Normal Negative [facility] UA Auto SS Aneth.plasma/Lithiu m.RBC (Bld) [Mass ratio] 0-3 /HPF Normal 0-3/HPF [facility] UA Auto SS Nitrite Ql (U) Negative (10/19/22 9:18 AM) Normal Negative [facility] UA Auto SS pH (U) 7.5 *NA* (10/19/22 9:18 AM) Invalid Interpretation Code 5.0 - 9.0 [facility] UA Auto SS Protein (U) [Mass/Vol] Negative (10/19/22 9:18 AM) Normal Negative [facility] UA Auto SS Specific gravity (U) [Rel density] 1.010 *NA* (10/19/22 9:18 AM) Invalid Interpretation Code 1.005 - 1.030 [facility] UA Auto SS UA Spec Desc Clean Catch (10/19/22 9:18 AM) Normal [facility] UA Auto SS Urobilinogen Qn (U) 0.4820265 {Munir'U}/dL Normal 0.0 - 1.0 EU/dL [facility] UA Auto SS WBC Auto Ql (U) Negative (10/19/22 9:18 AM) Normal Negative [facility] UA Auto SS WBC LM.HPF (Urine sed) [#/Area] 0-5 /HPF Normal 0-5/HPF [facility] UA Auto SS XR Chest 2 Viewson XR Chest 2 Views Exam Date/Time: 10/19/2022 12:14 EDT Reason for Exam: Difficulty breathing Report IMPRESSION: NO EVIDENCE OF ACTIVE CHEST DISEASE. CLINICAL HISTORY: Difficulty breathing. COMPARISON: 06/10/2022. COMMENT: The heart is normal in size. The mediastinum is unremarkable. The lungs appear clear. No infiltration nor pleural effusion is evident. No significant change is noted when compared to the prior exam. Ordering Provider: Earnest Jett FINAL REPORT Dictated: 10/19/2022 4:35 pm Moncho Pascual M.D. Signed (Electronic Signature): 10/19/2022 4:35 pm Signed by: Moncho Pascual M.D. Transcribed by: CHANEL Technologist: JAYA Technical Comments Radiation Dose: Ka,r in mGy = na DAP = na Normal [facility] eGFROrdered By: PIOTR Flores on 10-19-2022 GFR/1.73 sq M.predicted among non-blacks MDRD (S/P/Bld) [Vol rate/Area] 100 mL/min/1.73 m2 Normal >=59 [facility] Comment on above: Order Comment: Order added by Discern Expert. Result Comment: Electromechanical Inspector yrn kidney disease could be indicated at eGFR's of less than 60 mL/min/1.73m2. Kidney failure is indicated at less than 15 mL/min/1.73m2. Performed By: #### 2 131929, 90256969, 2542256, 2967997, 97589065, 22357695, 22761384, 4036228 #### [facility] [address] [place] [address] ALLIED HEALTHon 10-18-2022 ALLIED HEALTH HNO ID: [id number] Author: Gail Gonzales Tech Service: ? Author Type: Technologist Type: Allied Health Filed: 10/18/2022 10:08 AM Note Text: Radiology Service Progress Note DATE OF SERVICE: October 18, 2022 TIME: 10:07 AM PATIENT IDENTITY VERIFICATION COMPLETED USING TWO (2) STANDARD IDENTIFIERS: Name and Date of confirmed by patient verbally. FALL SCREENING: Has the patient had 2 falls in the last year or 1 fall with injury or currently using an Ambulatory Assistive Device (Walker, Cane, Wheelchair, Crutches, etc.)? Emergency Room Patient: Screened in ED PATIENT GENDER DATA: Female. status: : No status: NO. PATIENT RELEVANT IMPLANT DATA REVIEWED: Not Applicable ALLERGIES: Reviewed and unchanged CONTRAST ALLERGY: NO. EXAM: CT -CONTRAST INDUCED NEPHROPATHY RISK FACTORS: Not applicable CREATININE: Creatinine Date Value Ref Range Status 10/18/2022 0.81 0.58 - 0.96 mg/dL Final 07/22/2022 0.83 0.58 - 0.96 mg/dL Final 06/24/2022 0.85 0.58 - 0.96 mg/dL Final Estimated Glomerular Filtration Rate Date Value Ref Range Status 10/18/2022 98 >=60 mL/min/1.73m? Final Comment: Estimated Glomerular Filtration Rate (eGFR) is calculated using the 2020 CKD-EPI creatinine equation. This equation utilizes serum creatinine, sex, and age as parameters. The creatinine assay has traceable calibration to isotope dilution-mass spectrometry. Refer to KDIGO guidelines for clinical interpretation. In patients with unstable renal function, e.g. those with acute kidney injury, the eGFR may not accurately reflect actual GFR. eGFR- Date Value Ref Range Status 03/18/2021 >60 Final P.O.C.T. RESULTS: POC done: Yes, See Lab Tab October 18, 2022 TREATMENT: N/A PERIPHERAL IV DATA: Inpatient - refer to LDA documentation RADIOLOGY DEPARTMENT: CT; Exam(s) Completed: Abdomen/Pelvis SIGNATURE: Tessa Griffin PATIENT NAME: Abbey Garcia DATE: October 18, 2022 TIME: 10:07 AM Normal [facility] CBC W Auto Differential pane l (Bld)on 10-18-2022 Basophils (Bld) [#/Vol] 0.03 10*3/uL Normal <0.11 [facility] Comment on above: Order Comment: Speci men Type: BLOOD SPECIMEN Ordering Facility: [facility] Address: [address] [place] [address] Performed By: #### 5 7021-8 #### [facility] CLIA [id number] [address] [place] Basophils/100 WBC (Bld) 0.8 % Normal [facility] Comment on above: Order Comment: Speci men Type: BLOOD SPECIMEN Ordering Facility: [facility] Address: [address] [place] [address] Performed By: #### 5 7021-8 #### [facility] CLIA [id number] [address] [place] Differential cell count method Nom (Bld) Auto Normal [facility] Comment on above: Order Comment: Speci men Type: BLOOD SPECIMEN Ordering Facility: [facility] Address: [address] [place] [address] Performed By: #### 5 7021-8 #### [facility] CLIA [id number] [address] [place] Eosinophils (Bld) [#/Vol] 0.14 10*3/uL Normal <0.46 [facility] Comment on above: Order Comment: Speci men Type: BLOOD SPECIMEN Ordering Facility: [facility] Address: [address] [place] [address] Performed By: #### 5 7021-8 #### [facility] CLIA [id number] [address] Eosinophils/100 WBC (Bld) 3.7 % Normal [facility] Comment on above: Order Comment: Speci men Type: BLOOD SPECIMEN Ordering Facility: [facility] Address: [address] [place] [address] Performed By: #### 5 7021-8 #### [facility] CLIA [id number] [address] [facility] Erythrocyte distribution width (RBC) [Ratio] 12.7 % Normal 11.5-15.0 [facility] Comment on above: Order Comment: Speci men Type: BLOOD SPECIMEN Ordering Facility: [facility] Address: [address] [place] [address] Performed By: #### 5 7021-8 #### [facility] CLIA [id number] [address] Hematocrit (Bld) [Volume fraction] 38.5 % Normal 36.0-46.0 [facility] Comment on above: Order Comment: Speci men Type: BLOOD SPECIMEN Ordering Facility: [facility] Address: [address] [place] [address] Performed By: #### 5 7021-8 #### [facility] CLIA [id number] [address] [place] Hemoglobin (Bld) [Mass/Vol] 12.9 g/dL Normal 11.5-15.5 [facility] Comment on above: Order Comment: Speci men Type: BLOOD SPECIMEN Ordering Facility: [facility] Address: [address] [place] [address] Performed By: #### 5 7021-8 #### [facility] CLIA [id number] [address] Immature granulocytes (Bld) [#/Vol] 10*3/uL Normal <0.10 [facility] Comment on above: Order Comment: Speci men Type: BLOOD SPECIMEN Ordering Facility: [facility] Address: [address] [address] Performed By: #### 5 7021-8 #### [facility] CLIA [id number] [address] Immature granulocytes/100 WBC (Bld) 0.3 % Normal [facility] Comment on above: Order Comment: Speci men Type: BLOOD SPECIMEN Ordering Facility: [facility] Address: [address] [place] [address] Performed By: #### 5 7021-8 #### [facility] CLIA [id number] [address] Lymphocytes (Bld) [#/Vol] 1.66 10*3/uL Normal 1.00-4.00 [facility] Comment on above: Order Comment: Speci men Type: BLOOD SPECIMEN Ordering Facility: [facility] Address: [address] [place] [address] Performed By: #### 5 7021-8 #### [facility] CLIA [id number] [address] Lymphocytes/100 WBC (Bld) 43.7 % Normal [facility] Comment on above: Order Comment: Speci men Type: BLOOD SPECIMEN Ordering Facility: [facility] Address: [address] [place] [address] Performed By: #### 5 7021-8 #### [facility] CLIA [id number] [address] MCH (RBC) [Entitic mass] 30.2 pg Normal 26.0-34.0 [facility] Comment on above: Order Comment: Speci men Type: BLOOD SPECIMEN Ordering Facility: [facility] Address: [address] [place] [address] Performed By: #### 5 7021-8 #### [facility] CLIA [id number] [address] MCHC (RBC) [Mass/Vol] 33.5 g/dL Normal 30.5-36.0 [facility] Comment on above: Order Comment: Speci men Type: BLOOD SPECIMEN Ordering Facility: [facility] Address: [address] [place] [address] Performed By: #### 5 7021-8 #### [facility] CLIA [id number] [address] [place] MCV (RBC) [Entitic vol] 90.2 fL Normal 80.0-100.0 [facility] Comment on above: Order Comment: Speci men Type: BLOOD SPECIMEN Ordering Facility: [facility] Address: [address] [address] Performed By: #### 5 7021-8 #### [facility] CLIA [id number] [address] [place] Monocytes (Bld) [#/Vol] 0.28 10*3/uL Normal <0.87 [facility] Comment on above: Order Comment: Speci men Type: BLOOD SPECIMEN Ordering Facility: [facility] Address: [address] [address] Performed By: #### 5 7021-8 #### [facility] CLIA [id number] [address] Monocytes/100 WBC (Bld) 7.4 % Normal [facility] Comment on above: Order Comment: Speci men Type: BLOOD SPECIMEN Ordering Facility: [facility] Address: [address] [address] Performed By: #### 5 7021-8 #### [facility] CLIA [id number] [address] [place] Neutrophils (Bld) [#/Vol] 1.68 10*3/uL Normal 1.45-7.50 [facility] Comment on above: Order Comment: Speci men Type: BLOOD SPECIMEN Ordering Facility: [facility] Address: [address] [place] [address] Performed By: #### 5 7021-8 #### [facility] CLIA [id number] [address] [place] Neutrophils/100 WBC (Bld) 44.1 % Normal [facility] Comment on above: Order Comment: Speci men Type: BLOOD SPECIMEN Ordering Facility: [facility] Address: [address] [address] Performed By: #### 5 7021-8 #### [facility] CLIA [id number] [address] [place] Nucleated RBC (Bld) [#/Vol] 10*3/uL Normal <0.01 [facility] Comment on above: Order Comment: Speci men Type: BLOOD SPECIMEN Ordering Facility: [facility] Address: [address] [place] [address] Performed By: #### 5 7021-8 #### [facility] CLIA [id number] [address] Nucleated RBC/100 WBC (Bld) [Ratio] 0.0 /100 WBC Normal [facility] Comment on above: Order Comment: Speci men Type: BLOOD SPECIMEN Ordering Facility: [facility] Address: [address] [address] Performed By: #### 5 7021-8 #### [facility] CLIA [id number] [address] [place] Platelet mean volume (Bld) [Entitic vol] 11.1 fL Normal 9.0-12.7 [facility] Comment on above: Order Comment: Speci men Type: BLOOD SPECIMEN Ordering Facility: [facility] Address: [address] [address] Performed By: #### 5 7021-8 #### [facility] CLIA [id number] [address] [place] Platelets (Bld) [#/Vol] 231 10*3/uL Normal 150-400 [facility] Comment on above: Order Comment: Speci men Type: BLOOD SPECIMEN Ordering Facility: [facility] Address: [address] [address] Performed By: #### 5 7021-8 #### [facility] CLIA [id number] [address] OF [facility] RBC (Bld) [#/Vol] 4.27 10*6/uL Normal 3.90-5.20 [facility] Comment on above: Order Comment: Speci men Type: BLOOD SPECIMEN Ordering Facility: [facility] Address: [address] [place] [address] Performed By: #### 5 7021-8 #### [facility] CLIA [id number] [address] WBC (Bld) [#/Vol] 3.80 10*3/uL Normal 3.70-11.00 [facility] Comment on above: Order Comment: Speci men Type: BLOOD SPECIMEN Ordering Facility: [facility] Address: [address] [place] [address] Performed By: #### 5 7021-8 #### [facility] CLIA [id number] [address] ABD/PEL WO IVCONon 2022 CT ABD/PEL WO IVCON * * *Final Report* * * DATE OF EXAM: Oct 18 2022 10:07AM [facility] 0531 - CT ABD/PEL WO IVCON / PROCEDURE REASON: Nephrolithiasis, uncomplicated * * * * Physician Interpretation * * * * EXAMINATION: CT ABDOMEN AND PELVIS WITHOUT IV CONTRAST CLINICAL HISTORY: Nephrolithiasis TECHNIQUE: Non-IV contrast imaging of the abdomen and pelvis was performed using standard technique, scanning from just above the dome of the diaphragm to the symphysis pubis. Unenhanced imaging is limited for the evaluation of some intra-abdominal and pelvic pathology. MQ: CTAPWO_3 Contrast: IV: None : ml of CT Radiation dose: Integrated Dose-length product (DLP) for this visit = 610 mGy*cm. CT Dose Reduction Employed: Automated exposure control(AEC) and iterative recon COMPARISON: CT of 06/20/2022. RESULT: Abdomen / Pelvis: Liver: Multiple low-attenuation lesions scattered throughout the liver, too small to fully characterize likely representing small cysts, stable. Biliary: Stable intra and extrahepatic biliary dilatation, likely related to prior cholecystectomy. Spleen: No splenomegaly. Pancreas: Unremarkable. Adrenals: No mass. Kidneys: Punctate nonobstructing calculus within the lower pole the right kidney, 3:53. On the same level there is a hyperechoic density subcentimeter lesion within the lower pole peripherally, likely small hemorrhagic or proteinaceous cyst. No hydronephrosis or further focal lesion.. GI Tract: Prior gastric bypass. No evidence of obstruction or wall thickening.. Lymph Nodes: No lymphadenopathy. Mesentery/peritoneum: No ascites. Retroperitoneum: No mass. Vasculature: No abdominal aortic or iliac artery aneurysm. Pelvis: No mass or ascites. Bones/Soft Tissues: No acute abnormality. Lower thorax: Unremarkable. Crop Scout (topogram) images: No additional findings. IMPRESSION: Stable findings as detailed above. No acute intra-abdominal or pelvic process seen. Special Investigator: JUANCARLOS Transcribe Date/Time: Oct 18 2022 10:14A Dictated by : ADELA FISHER MD This examination was interpreted and the report reviewed and electronically signed by: ADELA FISHER MD on Oct 18 2022 10:21AM EST [id number] Normal [facility] Comprehensive metabolic 2000 panelon 10-18-2022 Albumin [Mass/Vol] 4.3 g/dL Normal 3.9-4.9 [facility] Comment on above: Order Comment: Speci men Type: BLOOD SPECIMEN Ordering Facility: [facility] Address: [address] [place] [address] Performed By: #### 2 4323-8, 0-3 #### [facility] CLIA [id number] [address] [place] [facility] ALP [Catalytic activity/Vol] 73 U/L Normal 34-123 [facility] Comment on above: Order Comment: Speci men Type: BLOOD SPECIMEN Ordering Facility: [facility] Address: [address] [address] Performed By: #### 2 4323-8, 0-3 #### [facility] CLIA [id number] [address] [place] ALT With P-5'-P [Catalytic activity/Vol] 24 U/L Normal 7-38 [facility] Comment on above: Order Comment: Speci men Type: BLOOD SPECIMEN Ordering Facility: [facility] Address: [address] [address] Performed By: #### 2 4323-8, 3040-3 #### [facility] CLIA [id number] [address] Anion gap [Moles/Vol] 8 mmol/L Low 9-18 [facility] [facility] Comment on above: Order Comment: Speci men Type: BLOOD SPECIMEN Ordering Facility: [facility] Address: [address] [address] Performed By: #### 2 4323-8, 0-3 #### [facility] CLIA [id number] [address] STATES OF [facility] AST With P-5'-P [Catalytic activity/Vol] 36 U/L High 13-35 [facility] Comment on above: Order Comment: Speci men Type: BLOOD SPECIMEN Ordering Facility: [facility] Address: [address] [address] Performed By: #### 2 4323-8, 0-3 #### [facility] CLIA [id number] [address] STATES OF [facility] Bilirubin [Mass/Vol] 0.4 mg/dL Normal 0.2-1.3 [facility] Comment on above: Order Comment: Speci men Type: BLOOD SPECIMEN Ordering Facility: [facility] Address: [address] [address] Performed By: #### 2 4323-8, 3040-3 #### [facility] CLIA [id number] [address] OF [facility] Calcium [Mass/Vol] 8.9 mg/dL Normal 8.5-10.2 [facility] Comment on above: Order Comment: Speci men Type: BLOOD SPECIMEN Ordering Facility: [facility] Address: [address] [address] Performed By: #### 2 4323-8, 3040-3 #### [facility] CLIA [id number] [address] Chloride [Moles/Vol] 108 mmol/L High 97-105 [facility] Comment on above: Order Comment: Speci men Type: BLOOD SPECIMEN Ordering Facility: [facility] Address: [address] [place] [address] Performed By: #### 2 4323-8, 3040-3 #### [facility] CLIA [id number] [address] OF [facility] CO2 [Moles/Vol] 26 mmol/L Normal 22-30 [facility] Comment on above: Order Comment: Speci men Type: BLOOD SPECIMEN Ordering Facility: [facility] Address: [address] [place] [address] Performed By: #### 2 4323-8, 0-3 #### [facility] CLIA [id number] [address] Creatinine [Mass/Vol] 0.81 mg/dL Normal 0.58-0.96 [facility] Comment on above: Order Comment: Speci men Type: BLOOD SPECIMEN Ordering Facility: [facility] Address: [address] [place] [address] Performed By: #### 2 4323-8, 3040-3 #### [facility] CLIA [id number] [address] Creatinine and Glomerular filtration rate.predicted panel (S/P/Bld) 98 mL/min/1.73m??? Normal >=60 [facility] Comment on above: Order Comment: Speci men Type: BLOOD SPECIMEN Ordering Facility: [facility] Address: [address] [place] [address] Result Comment: Rashmi mated Glomerular Filtration Rate (eGFR) is calculated using the 2020 CKD-EPI creatinine equation. This equation utilizes serum creatinine, sex, and age as parameters. The creatinine assay has traceable calibration to isotope dilution-mass spectrometry. Refer to KDIGO guidelines for clinical interpretation. In patients with unstable renal function, e.g. those with acute kidney injury, the eGFR may not accurately reflect actual GFR. Performed By: #### 2 4323-8, 3039-3 #### [facility] CLIA [id number] 1 [place] [address] [place] Glucose [Mass/Vol] 85 mg/dL Normal 74-99 [facility] Comment on above: Order Comment: Geraldo marrero Type: BLOOD SPECIMEN Ordering Facility: [facility] Address: [address] [place] [address] Result Comment: The [place] Diabetes Association (ADA) provides guidance for cutoff values for fasting glucose and random glucose. The ADA defines fasting as no caloric intake for at least 8 hours. Fasting plasma glucose results between 100 to 125 mg/dL indicate increased risk for diabetes (prediabetes). Fasting plasma glucose results greater than or equal to 126 mg/dL meet the criteria for diagnosis of diabetes. In the absence of unequivocal hyperglycemia, results should be confirmed by repeat testing. In a patient with classic symptoms of hyperglycemia or hyperglycemic crisis, random plasma glucose results greater than or equal to 200 mg/dL meet the criteria for diagnosis of diabetes. Reference: Standards of Medical Care in Diabetes 2016, [place] [employer] Association. Diabetes Care. 2016.39(Suppl 1). Performed By: #### 2 4323-8, 3039-3 #### [facility] CLIA [id number] [address] [place] Potassium [Moles/Vol] 4.3 mmol/L Normal 3.7-5.1 [facility] Comment on above: Order Comment: Geraldo marrero Type: BLOOD SPECIMEN Ordering Facility: [facility] Address: [address] [address] Performed By: #### 2 4323-8, 0-3 #### [facility] CLIA [id number] 1 [place] [address] [place] Protein [Mass/Vol] 6.4 g/dL Normal 6.3-8.0 [facility] Comment on above: Order Comment: Geraldo marrero Type: BLOOD SPECIMEN Ordering Facility: [facility] Address: [address] [place] [address] Performed By: #### 2 4323-8, 3040-3 #### [facility] CLIA [id number] [address] Sodium [Moles/Vol] 142 mmol/L Normal 136-144 [facility] Comment on above: Order Comment: Speci men Type: BLOOD SPECIMEN Ordering Facility: [facility] Address: [address] [address] Performed By: #### 2 4323-8, 3040-3 #### [facility] CLIA [id number] [address] [place] Urea nitrogen [Mass/Vol] 8 mg/dL Normal 7-21 [facility] Comment on above: Order Comment: Speci men Type: BLOOD SPECIMEN Ordering Facility: [facility] Address: [facility] [address] [place] [address] Performed By: #### 2 4323-8, 0-3 #### [facility] CLIA [id number] [address] ED NOTEon 10-18-2022 ED NOTE HNO ID: [id number] Author: Serafin Curiel RN Service: ? Author Type: Registered Nurse Type: ED Notes Filed: 10/18/2022 10:46 AM Note Text: Provider previously at bedside discussing results/findings. Discharge instructions, follow up recommendations and medications reviewed with patient. Pt advised to return to ED with worsening symptoms. Pt verbalizes understanding. Stable and ambulatory upon d/c Normal [facility] ED NOTE HNO ID: [id number] Author: Alannah Carter RN Service: ? Author Type: Registered Nurse Type: ED Notes Filed: 10/18/2022 7:53 AM Note Text: Bed: 26-ED Expected date: Expected time: Means of arrival: Comments: TRIAGE Normal [facility] ED PROV NOTEon 10-18-2022 ED PROV NOTE HNO ID: [id number] Author: Alverto Barrett MD Service: Emergency Medicine Author Type: Physician Type: ED Provider Notes Filed: 10/30/2022 9:22 AM Note Text: ED Provider Note Patient Name: Abbey Garcia : 1990 SERVICE DATE: 10/18/22 History Patient presents with: Kidney Stones: Pt states she is in town for a wedding and has a known kidney stone. Pt states she's had the kidney stone since june and has not been able to pass it. Pt was up all night in pain. +nausea and Right side flank pain Patient is a 32-year-old female with past medical history of hypertension and gastric bypass that presents today with worsening right-sided abdominal pain. She states that she has been diagnosed with nephrolithiasis in the past and had a 4 mm stone. She states that she thinks that it is moving down the ureter and causing her more pain. She says that the pain has been intermittent in the right flank however over the past couple of days has been more severe causing her nausea as well. She is from out of town and was seen in the emergency department yesterday and given some Vicodin for pain however it is not working. She declined a CAT scan of her abdomen pelvis at that time. PAST MEDICAL HISTORY Diagnosis Date Anemia Takes Pro FE daily. Arthritis Asthma Class 1 obesity without serious comorbidity with body mass index (BMI) of 33.0 to 33.9 in adult 09/25/2019 Gastric ulcer 2013 GERD (gastroesophageal reflux disease) History of IBS Hypertension Hypothyroid RICHAR on CPAP wears mask every night PCOS (polycystic ovarian syndrome) PONV (postoperative nausea and vomiting) 01/29/2022 Ventral hernia without obstruction or gangrene PAST SURGICAL HISTORY Procedure Laterality Date APPENDECTOMY 08/2019 ARTHROSCOPY, SHOULDER, SURGI Right 08/2022 SLAP REPAIR and Subacromial Decompression CHOLECYSTECTOMY COLONOSCOPY GEN ANES EGD F TOTAL ABDOMINAL HYSTERECTOMY PAST SURGICAL HISTORY OF Bilateral arthroscopic knee surgery- was catcher in [employer] PAST SURGICAL HISTORY OF 08/2020 gastric sleeve PICC LINE INSERT/CONSULT 12/24/2020 VAGINAL DELIVERY AFTER DELIVERY Three C-sections FAMILY HISTORY Problem Relation Age of Onset Diabetes Mother Hypertension Mother Obesity Mother Hypertension Father Hypertension Brother Obesity Brother Hypertension Brother Obesity Brother Social History Tobacco Use Smoking status: Never Smokeless tobacco: Never Substance and Sexual Activity Alcohol use: Not Currently Drug use: Never Comment: denies tx for drug/alcohol abuse in the past. Sexual activity: Yes Partners: Male Comment: Nexplanon impact ALLERGIES Allergen Reactions Adhesive Tape-Silic* Intolerance Sensitive to certain adhesive tapes. Redness and itchy. Codeine GI Upset Nsaids (Non-Steroid* Contraindication-Medic al Surgical S/p RYGB Review of Systems Constitutional: Negative for activity change, fatigue and fever. HENT: Negative for congestion and rhinorrhea. Eyes: Negative for pain and visual disturbance. Respiratory: Negative for cough, chest tightness and shortness of breath. Cardiovascular: Negative for chest pain and leg swelling. Gastrointestinal: Positive for abdominal pain, constipation and nausea. Negative for diarrhea and vomiting. Endocrine: Negative. Genitourinary: Positive for flank pain. Negative for difficulty urinating, dysuria, frequency, hematuria and urgency. Skin: Negative for color change and rash. Neurological: Negative for dizziness, numbness and headaches. Psychiatric/Behavioral : Negative for behavioral problems. The patient is not nervous/anxious. Physical Exam Vitals [10/18/22 0752] BP Pulse Temp Temp src Resp SpO2 Weight Height 173/94 64 36.4 ?C (97.5 ?F) Oral 16 100 % 81.6 kg (180 lb) 1.676 m (5' 6 ) Physical Exam Constitutional: General: She is not in acute distress. Appearance: Normal appearance. She is not ill-appearing or diaphoretic. HENT: Head: Normocephalic and atraumatic. Nose: Nose normal. Mouth/Throat: Mouth: Mucous membranes are moist. Pharynx: Oropharynx is clear. No oropharyngeal exudate. Eyes: General: Right eye: No discharge. Left eye: No discharge. Extraocular Movements: Extraocular movements intact. Conjunctiva/sclera: Conjunctivae normal. Cardiovascular: Rate and Rhythm: Normal rate and regular rhythm. Pulses: Normal pulses. Heart sounds: Normal heart sounds. Pulmonary: Effort: Pulmonary effort is normal. No respiratory distress. Breath sounds: Normal breath sounds. No wheezing. Abdominal: General: Abdomen is flat. There is no distension. Palpations: Abdomen is soft. Tenderness: There is abdominal tenderness. There is right CVA tenderness. There is no left CVA tenderness, guarding or rebound. Comments: Right-sided tenderness in upper and lower quadrants, right CVA tenderness. No peritoneal signs Musculoskeletal: Gen (more content not included)... Normal [facility] Lipase SerPl-cCncon 10-19-19 23 Lipase [Catalytic activity/Vol] 34 U/L Normal 16-61 [facility] Comment on above: Order Comment: Speci men Type: BLOOD SPECIMEN Ordering Facility: [facility] Address: [address] [address] Performed By: #### 2 4323-8, 3040-3 #### [facility] CLIA [id number] [address] Urinalysis complete panel (U )on 10-18-2022 Bilirubin Ql (U) Negative Normal Negative [facility] Comment on above: Order Comment: Speci men Type: URINE SPECIMEN Ordering Facility: [facility] Address: [address] [place] [address] Performed By: #### 2 4356-8 #### [facility] CLIA [id number] [address] Clarity (Unsp spec) Clear Normal Clear [facility] Comment on above: Order Comment: Speci men Type: URINE SPECIMEN Ordering Facility: [facility] Address: [address] [place] [address] Performed By: #### 2 4356-8 #### [facility] CLIA [id number] [address] Color (U) Light Yellow Normal yellow [facility] Comment on above: Order Comment: Speci men Type: URINE SPECIMEN Ordering Facility: [facility] Address: [address] [place] [address] Performed By: #### 2 4356-8 #### [facility] CLIA [id number] [address] Epithelial cells LM.HPF (Urine sed) [#/Area] Few Normal [facility] Comment on above: Order Comment: Speci men Type: URINE SPECIMEN Ordering Facility: [facility] Address: [address] [place] [address] Performed By: #### 2 4356-8 #### [facility] CLIA [id number] [address] Glucose Test strip (U) [Mass/Vol] Negative Normal Trace, Negative [facility] Comment on above: Order Comment: Speci men Type: URINE SPECIMEN Ordering Facility: [facility] Address: [address] [place] [address] Performed By: #### 2 4356-8 #### [facility] CLIA [id number] [address] Hemoglobin Ql (U) Negative Normal Negative, Trace [facility] Comment on above: Order Comment: Speci men Type: URINE SPECIMEN Ordering Facility: [facility] Address: [address] [place] [address] Performed By: #### 2 4356-8 #### [facility] CLIA [id number] [address] Ketones Ql (U) Negative Normal Negative, Trace [facility] Comment on above: Order Comment: Speci men Type: URINE SPECIMEN Ordering Facility: [facility] Address: [address] [place] [address] Performed By: #### 2 4356-8 #### [facility] CLIA [id number] [address] Leukocyte esterase Test strip Ql (U) Negative Normal Negative, 25 Patito/uL [facility] Comment on above: Order Comment: Speci men Type: URINE SPECIMEN Ordering Facility: [facility] Address: [address] [place] [address] Performed By: #### 2 4356-8 #### [facility] CLIA [id number] [address] OF [facility] Nitrite Ql (U) Negative Normal Negative [facility] Comment on above: Order Comment: Speci men Type: URINE SPECIMEN Ordering Facility: [facility] Address: [address] [place] [address] Performed By: #### 2 4356-8 #### [facility] CLIA [id number] [address] [place] pH (U) 7.5 [pH] Normal 5.0-8.0 [facility] Comment on above: Order Comment: Speci men Type: URINE SPECIMEN Ordering Facility: [facility] Address: [address] [place] [address] Performed By: #### 2 4356-8 #### [facility] CLIA [id number] [address] Protein (U) [Mass/Vol] Negative Normal Trace, Negative [facility] Comment on above: Order Comment: Speci men Type: URINE SPECIMEN Ordering Facility: [facility] Address: [address] [place] [address] Performed By: #### 2 4356-8 #### [facility] CLIA [id number] [address] RBC LM.HPF (Urine sed) [#/Area] 0-3 /HPF Normal 0-3 /HPF [facility] Comment on above: Order Comment: Speci men Type: URINE SPECIMEN Ordering Facility: [facility] Address: [address] [place] [address] Performed By: #### 2 4356-8 #### [facility] CLIA [id number] [address] Specific gravity (U) [Rel density] 1.008 Normal 1.005-1.030 [facility] Comment on above: Order Comment: Speci men Type: URINE SPECIMEN Ordering Facility: [facility] Address: [address] [place] [address] Performed By: #### 2 4356-8 #### [facility] CLIA [id number] [address] Urobilinogen Ql (U) Normal Normal Negative [facility] Comment on above: Order Comment: Speci men Type: URINE SPECIMEN Ordering Facility: [facility] Address: [address] [place] [address] Performed By: #### 2 4356-8 #### [facility] CLIA [id number] [address] [place] WBC LM.HPF (Urine sed) [#/Area] 0-5 /HPF Normal 0-5 /HPF [facility] Comment on above: Order Comment: Speci men Type: URINE SPECIMEN Ordering Facility: [facility] Address: [place] [address] Performed By: #### 2 4356-8 #### [facility] CLIA [id number] 1 [place], [place] [address] [place] [address] Urinalysis w/ Microon 2022 Bilirubin, SemiQt,Ur Negative Normal NEG [facility] Comment on above: Performed By: #### U AMIC #### [facility] [address] [place] [address] Otr Driver: Baldomero Espinoza MD Blood, Urine Negative Normal NEG [facility] Comment on above: Performed By: #### U AMIC #### [facility] [address] [place] [address] Otr Driver: Baldomero Espinoza MD Clarity (U) Clear Normal CLEAR [facility] Comment on above: Performed By: #### U AMIC #### [facility] [address] [place] [address] Otr Driver: Baldomero Espinoza MD Color (U) Yellow Normal YEL [facility] Comment on above: Performed By: #### U AMIC #### [facility] [address] [place] [id number] Otr Driver: Baldomero Espinoza MD Epithelial cells LM Ql (Urine sed) None Normal 0-25 [facility] Comment on above: Performed By: #### U AMIC #### [facility] [address] [place] [address] Otr Driver: Baldomero Espinoza MD Glucose Ql (U) Negative Normal NEG [facility] Comment on above: Performed By: #### U AMIC #### [facility] [address] [place] [address] [place], [place] [id number] Otr Driver: Baldomero Espinoza MD Ketones Ql (U) Negative Normal NEG [facility] Comment on above: Performed By: #### U AMIC #### [facility] [address] [place], [place] [phone] Otr Driver: Baldomero Espinoza MD Leukocyte esterase Test strip Ql (U) Negative Normal NEG [facility] Comment on above: Performed By: #### U AMIC #### [facility] [address] [place] [address] Otr Driver: Baldomero Espinoza MD Nitrite,Ur Negative Normal NEG [facility] Comment on above: Performed By: #### U AMIC #### [facility] [address] [place] [address] [place], [place] [phone] Otr Driver: Baldomero Espinoza MD PH,Ur 6.5 Normal 5.0-9.0 [facility] Comment on above: Performed By: #### U AMIC #### [facility] [address] [place] [address] [place], [place] [id number] Otr Driver: Baldomero Espinoza MD Protein Ql (U) Negative Normal NEG [facility] Comment on above: Performed By: #### U AMIC #### [facility] [address] [place] [address] [place], [place] [phone] Otr Driver: Baldomero Espinoza MD Spec. [place],Ur 1.020 Normal 1.010-1.020 [facility] Comment on above: Performed By: #### U AMIC #### [facility] [address] [place] [address] [place], [place] [phone] Otr Driver: Baldomero Espinoza MD Urine RBC's None Normal 0-2 [facility] Comment on above: Performed By: #### U AMIC #### [facility] [address] [place], [place] [phone] Otr Driver: Baldomero Espinoza MD Urine WBC's None Normal 0-5 [facility] Comment on above: Performed By: #### U AMIC #### [facility] [address] [place] [address] Otr Driver: Baldomero Espinoza MD Urobilinogen,Ur Normal Normal 0.0-1.0 [facility] Comment on above: Performed By: #### U AMIC #### [facility] [address] [place] [address] Otr Driver: Baldomero Espinoza MD [employer] 10-08-2022 Forms [id number]#[id number] 0CD:[address] [facility] Ambulatory Visit Summaryon 0 10-07-2022 Ambulatory Visit Summary ABBEY GARCIA Estela :1990 Visit Date:10/07/2022 Ambulatory Visit Instructions Your Diagnosis BMI 28.0-28.9,adult Non-smoker Your Care Team Attending Physician - Jaquan Paula Primary Care Physician - Jaquan Paula This Is Your Medications List escitalopram (escitalopram 20 mg Tab) levothyroxine (levothyroxine 100 mcg (0.1 mg) Tab) liothyronine (liothyronine 5 mcg Tab) meclizine (Antivert 12.5 mg Tab) mirtazapine (mirtazapine 15 mg Tab) ondansetron (ondansetron 4 mg Dis Tab) topiramate (Topamax 100 mg Tab) Procedures Performed Revision (01/29/2022), Gastric sleeve (02/15/2021), Esophagogastroduodenos copy (01/20/2021), Hysterectomy (11/04/2020), Appendectomy, Cholecystectomy, Colonoscopy. Discharge Vitals Heart Rate (Peripheral) 76 Respiratory Rate 18 Blood Pressure 126/74 Height 168 cm Height 66 in Weight 84.9 kg Weight 186.78 lb BMI 30.08 What to do next Scheduled Follow-Up Appointments Wednesday 2:40 PM EDT With: Where: [facility] Normal [address] [place] [address]- \.br\ Medications\.b r\ What How Much When Why Instructions\. br\ Unchanged escitalopram (escitalopram 20 mg Tab) 1 Tablets By Mouth Every day\.br\ Unchanged levothyroxine (levothyroxine 100 mcg (0.1 mg) Tab) 1 Tablets By Mouth Every day Thyroid disorder\.br\ Unchanged liothyronine (liothyronine 5 mcg Tab) 5 Microgram By Mouth Every day\.br\ Unchanged meclizine (Antivert 12.5 mg Tab) 1 Tablets By Mouth 3 times a day as needed for for dizziness BMI 29.0-29.9,adul t\.br\ Unchanged mirtazapine (mirtazapine 15 mg Tab) 1 Tablets By Mouth Once a day (at bedtime)\.br\ Unchanged ondansetron (ondansetron 4 mg Dis Tab) 1 Tablets By Mouth Every 6 hours\.br\ Unchanged topiramate (Topamax 100 mg Tab) By Mouth 2 times a day\.br\ Allergies\.br\ NSAIDs (Unknown)\.br\ codeine (unknown)\.br\ Problems\.br\ Ongoing - Any problem that you are currently receiving treatment for.\.br\ Arthritis\.br\ Asthma\.br\ BMI 30.0-30.9,adul t\.br\ Depression\.br \ Gall stone\.br\ Hyperthyroidis m\.br\ Kidney cysts\.br\ Kidney stone\.br\ LUQ pain\.br\ Mixed incontinence urge and stress\.br\ Nausea\.br\ Rash of body\.br\ Renal cyst\.br\ Right flank pain\.br\ Historical - Any problem that you are no longer receiving treatment for.\.br\ Allergic rhinitis\.br\ Anemia\.br\ Hypothyroidism \.br\ Metabolic syndrome\.br\ PCOS- polycystic ovary syndrome\.br\ \.br\ [facility] Medicine Office/Clini c Noteon 10-07-2022 [facility] Medicine Office/Clinic Note HPI Staff Abbey is a 32 years old female presenting to discuss thyroid labs Patient is here for follow up on Thyroid Disease. Do you have any of the following symptoms? Change in energy level? no Weight change? no Heat/cold intolerance? no Hair/skin/nail changes? no Change in bowels? no Last TSH: 10/02/22 0.026 Questions/Concerns: History of Present Illness The patient is a 32-year-old female who is here to discuss her thyroid results. She had her labs done for school. She was having severe anxiety and panic. She thought something was wrong with her. She put in a message to her psychiatrist and told her that something was wrong with her. She was having heart palpitations. Her psychiatrist increased her Lexapro. She was not sure what was triggering her symptoms. She feels better now since the dose was changed. She had diarrhea. She has been going to Dr. Sosa for a long time. She has had 6 surgeries on her knees. Her knee needs to be replaced. She went to Dr. Sosa for her hip. Her hips have been bothering her for a while. They thought it was a cyst on her ovary. Six months later, she went back. She was in tears. She can not walk. She was told the back labrum was a possible tear. She was referred to [facility]. They had to shave the hip bone and re-place it. Her bicep tendon was dangling. She can not lift her arm up. pt is now having right knee pain. she has been told she will need it replaced. Dr. Pennington does not want to replace it at this time. The pain is getting worse It is affecting her everyday life. Looking for second opinion for ortho Review of Systems PHQ Score Initial Depression Screen Score: 0 ROS - Provider Constitutional: no fever, no chills, no sweats, no fatigue Respiratory: no shortness of breath, no cough, no orthopnea, no wheezing. Cardiovascular: no chest pain, no palpitations, no edema. Neurologic: no headache, no dizziness, no numbness, no weakness. right knee pain, low back pain Physical Exam Vitals & Measurements HR: 76(Peripheral) RR: 18 BP: 126/74 SpO2: 98% HT: 66 in HT: 168 cm WT: 84.9 kg WT: 186.78 lb BMI: 30.08 General: alert, no acute distress ENMT: oral mucosa moist, no pharyngeal erythema or exudate Cardiovascular: regular rate and rhythm, normal peripheral perfusion Respiratory: Lungs CTA, respirations non labored Extremities: no deformity, no trauma Neurological: oriented x 4, LOC appropriate for age, CN II-XII intact, motor strength equal & normal bilaterally, speech normal Assessment/Plan 1. Abnormal thyroid blood test (R79.89: Other specified abnormal findings of blood chemistry) Pt presents today to go over lab results. Her TSH was low at 0.026. We will recheck her TSH, T3, and T4 in 6 weeks. pt was having anxiety, diarrhea, increase heart rate. Feeling better now. will recheck labs in 6 weeks Ordered: Free T4 T3 Free Thyroid Stimulating Hormone 2. Arthritis (M19.90: Unspecified osteoarthritis, unspecified site) Pt c/o right knee pain. needs a total knee replacement. We will refer her to Dr. Hurd for a second opinion. Ordered: Free T4 T3 Free Thyroid Stimulating Hormone 3. BMI 28.0-28.9,adult (Z68.28: Body mass index [BMI] 28.0-28.9, adult) BMI education complete Ordered: Free T4 T3 Free Thyroid Stimulating Hormone 4. Non-smoker (Z78.9: Other specified health status) Continue not smoking Ordered: Free T4 T3 Free Thyroid Stimulating Hormone Orders: doxycycline, 100 mg = 1 cap(s), Oral, BID, # 20 cap(s), Refills(s) 0, [facility]acy: [id number], 167.2, cm, 05/05/22 13:30:00 EDT, Height/Length Dosing, 84.5, kg, 05/05/22 13:30:00 EDT, Weight Dosing tramadol, 50 mg = 1 tab(s), Oral, q12hr, PRN for pain, # 30 tab(s), Refills(s) 0, Pharmacy: [id number], 168, cm, 06/26/22 14:12:00 EDT, Height/Length Dosing, 82.5, kg, 06/26/22 14:12:00 EDT, Weight Dosing Follow-up No qualifying data available Problem List/Past Medical History Ongoing Abnormal thyroid blood test Arthritis Asthma BMI 30.0-30.9,adult Depression Gall stone Hyperthyroidism Kidney cysts Kidney stone LUQ pain Mixed incontinence urge and stress Nausea Rash of body Renal cyst Right flank pain Historical Allergic rhinitis Anemia Hypothyroidism Metabolic syndrome PCOS- polycystic ovary syndrome Procedure/Surgical History Revision (01/29/2022), Gastric sleeve (02/15/2021), Esophagogastroduodenos copy (01/20/2021), Hysterectomy (11/04/2020), Appendectomy, Cholecystectomy, Colonoscopy. Medications Antivert 12.5 mg Tab, 12.5 mg= 1 tab(s), Oral, TID, PRN escitalopram 20 mg Tab, 20 mg= 1 tab(s), Oral, Daily levothyroxine 100 mcg (0.1 mg) Tab, 100 mcg= 1 tab(s), Oral, Daily, 1 refills liothyronine 5 mcg Tab, 5 mcg, Oral, Daily, 1 refills mirtazapine 15 mg Tab, 15 mg= 1 tab(s), Oral, Once a day (at bedtime) ondansetron 4 mg Dis Tab, 4 mg= 1 tab(s), Oral, q6hr Topamax 100 mg Tab, Oral, BID Allergies NSAIDs ( (more content not included)... Normal [facility] Comment on above: Result Comment: Elec tronically Signed By: Jaquan Paula\.br\Date and Time Signed: 10/07/22 16:37 EDT Operative Reporton 3 Operative Report [id number] 0CD:127 [facility] CNOVon 09-18-2022 CNOV [facility] CNPNon 09-04-2022 CNPN [facility] Formson 07-29-2022 Forms [id number] 0CD:127 [facility] Patient Educationon 07-30-19 Patient Education Nephrology Dietary Guidelines to Help Prevent Kidney Stones Kidney stones are deposits of minerals and salts that form inside your kidneys. Your risk of developing kidney stones may be greater depending on your diet, your lifestyle, the medicines you take, and whether you have certain medical conditions. Most people can lower their chances of developing kidney stones by following the instructions below. Your dietitian may give you more specific instructions depending on your overall health and the type of kidney stones you tend to develop. What are tips for following this plan? Reading food labels ? Choose foods with no salt added or low-salt labels. Limit your salt (sodium) intake to less than 1,500 mg a day. ? Choose foods with calcium for each meal and snack. Try to eat about 300 mg of calcium at each meal. Foods that contain 200?500 mg of calcium a serving include: ? 8 oz (237 mL) of milk, ibzzyxe-lseiurxxylgx-l airy milk, and calcium-fortifiedfruit juice. Calcium-fortified means that calcium has been added to these drinks. ? 8 oz (237 mL) of kefir, yogurt, and soy yogurt. ? 4 oz (114 g) of tofu. ? 1 oz (28 g) of cheese. ? 1 cup (150 g) of dried figs. ? 1 cup (91 g) of cooked broccoli. ? One 3 oz (85 g) can of sardines or mackerel. Most people need 1,000?1,500 mg of calcium a day. Talk to your dietitian about how much calcium is recommended for you. Shopping ? Buy plenty of fresh fruits and vegetables. Most people do not need to avoid fruits and vegetables, even if these foods contain nutrients that may contribute to kidney stones. ? When shopping for convenience foods, choose: ? Whole pieces of fruit. ? Pre-made salads with dressing on the side. ? Low-fat fruit and yogurt smoothies. ? Avoid buying frozen meals or prepared deli foods. These can be high in sodium. ? Look for foods with live cultures, such as yogurt and kefir. ? Choose high-fiber grains, such as whole-wheat breads, oat bran, and wheat cereals. Cooking ? Do not add salt to food when cooking. Place a salt shaker on the table and allow each person to add his or her own salt to taste. ? Use vegetable protein, such as beans, textured vegetable protein (TVP), or tofu, instead of meat in pasta, casseroles, and soups. Meal planning ? Eat less salt, if told by your dietitian. To do this: ? Avoid eating processed or pre-made food. ? Avoid eating fast food. ? Eat less animal protein, including cheese, meat, poultry, or fish, if told by your dietitian. To do this: ? Limit the number of times you have meat, poultry, fish, or cheese each week. Eat a diet free of meat at least 2 days a week. ? Eat only one serving each day of meat, poultry, fish, or seafood. ? When you prepare animal protein, cut pieces into small portion sizes. For most meat and fish, one serving is about the size of the palm of your hand. ? Eat at least five servings of fresh fruits and vegetables each day. To do this: ? Keep fruits and vegetables on hand for snacks. ? Eat one piece of fruit or a handful of berries with breakfast. ? Have a salad and fruit at lunch. ? Have two kinds of vegetables at dinner. ? Limit foods that are high in a substance called oxalate. These include: ? Spinach (cooked), rhubarb, beets, sweet potatoes, and [place] chard. ? Peanuts. ? Potato chips, macedonian fries, and baked potatoes with skin on. ? Nuts and nut products. ? Chocolate. ? If you regularly take a diuretic medicine, make sure to eat at least 1 or 2 servings of fruits or vegetables that are high in potassium each day. These include: ? Avocado. ? Banana. ? [place], prune, carrot, or tomato juice. ? Baked potato. ? Cabbage. ? Beans and split peas. Lifestyle ? Drink enough fluid to keep your urine pale yellow. This is the most important thing you can do. Spread your fluid intake throughout the day. ? If you drink alcohol: ? Limit how much you use to: ? 0?1 drink a day for women who are not . ? 0?2 drinks a day for men. ? Be aware of how much alcohol is in your drink. In the [place] one drink equals one 12 oz bottle of beer (355 mL), one 5 oz glass of wine (148 mL), or one 1? oz glass of hard liquor (44 mL). ? Lose weight if told by your health care provider. Work with your dietitian to find an eating plan and weight loss strategies that work best for you. General information ? Talk to your health care provider and dietitian about taking daily supplements. You may be told the following depending on your health and the cause of your kidney stones: ? Not to take supplements with vitamin C. ? To take a calcium supplement. ? To take a daily probiotic supplement. ? To take other supplements such as magnesium, fish oil, or vitamin B6. ? Take xyfy-zlq-mnwqewq and prescription medicines only as told by your health care provider. These include supplements. What foods should I limit? Limit your in (more content not included)... Normal [facility] Physician Referralon 023 Physician Referral [id number]:[address] [facility] Urology Office/Clinic Noteon 07-29-2022 Urology Office/Clinic Note Chief Complaint Pt is here for kidney stones HPI Staff Abbey is a 32 y.o. female new patient here for kidney stones. Referred by Jaquan Morrow. Pt stated in June she was admitted to [facility] ER for kidney stones. CT a/p w/o con done on 06/16/22 showed 2mm RT lower pole renal calculus, tiny rt renal cortical hyperdense cyst. UA done 06/24/22 was negative for blood or infection. KUB done on 06/24/22 showed nothing urological. BMP done on 06/22/22 & 07/22/22. CMP done on 06/24/22. Pt states she passed kidney stone a couple years ago. Dysuria: pressure Incomplete bladder emptying: denies Hematuria: denies Frequency: yes Urgency: denies Nocturia: denies Stream: steady stream Leaking: denies Post void dripping: mild Wearing pads/ Depends: yes wears panty liner Urge incontinence: denies Stress incontinence: yes cough sneeze Incontinence without Sensory Awareness: denies Abdominal pain: suprapubic pain Flank pain: RT side flank pain Sexual complaints: _ History of Present Illness Tests reviewed: reviewed UA, referral records including external CT scan, labs and notes I have reviewed the previous health record information and history for this patient from external providers I have reviewed and verified the staff HPI to be accurate for this encounter. There have been no associated fever, chills, or blood in the urine. Denies any urinary infections since last encounter. Review of Systems PHQ Score Initial Depression Screen Score: 0 ROS - Provider Constitutional: denies weight loss, denies hot flashes. Eyes: denies eye problems. Gastrointestinal: denies nausea, denies vomiting. Cardiovascular: denies chest pain or angina. Integumentary: no dryness Musculoskeletal: denies musculoskeletal symptoms. ENMT: denies otolaryngeal symptoms. Respiratory: no shortness of breath. Heme/Lymph: denies easy bleeding tendency, denies easy bruising tendency. Psychiatric: no confusion, no anxiety. Genitourinary: See HPI. Physical Exam Vitals & Measurements HR: 71(Peripheral) BP: 127/86 HT: 66 in HT: 168 cm WT: 81 kg WT: 178.2 lb BMI: 28.7 General Appearance: alert , no acute distress, well nourished, well developed female. Head: normocephalic . Eyes: normal orbit and globe. ENMT: normal examination of external ears. Chest: symmetric chest rise, respirations non labored . Cardiovascular: regular rate and rhythm. Abdomen: soft, non distended, no tenderness Genitourinary: bladder nonpalpable, no flank tenderness. Skin: warm, dry, no bruising. Psychiatric: cooperative, affect appropriate for age, normal judgement, euthymic mood. Rash on right arm. Assessment/Plan Abbey is a 32 y.o. female new patient here for kidney stones. Pt stated in June Hx of 3 c-sections, adhesions. Cholecystectomy. Ovarian cysts. Gastric bypass. 1. Kidney stone (N20.0: Calculus of kidney) CT AP wo con 06/16/22 - punctate 2 mm RT lower pole renal calculus, no hydro KUB 06/24/22 - Nothing urological. UA today negative for blood and infection. Passed kidney stone a couple years ago. Was admitted to [facility] ER for kidney stones. Brother and grandfather have had stones. Pt aware she is at higher stone risk due to hx of gastric bypass. Educated pt on dietary modifications for stone prevention. Discussed metabolic workup including 24 hour urine and blood work for stone prevention. Unlikely source of her R flank pain Follow up 6 mos KUB, GREY or sooner if needed. Pt understands and agrees with plan. -Pt to call if she would like to proceed with met workup. 2. Mixed incontinence urge and stress (N39.46: Mixed incontinence) Has urgency. UUI > EL. EL with coughing/sneezing. 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 Educated pt on Kegels, bladder irritants, timed voids. Discussed options for UUI including Botox vs oral medication. Declined medical tx at this time -Started timed voids q2-3hr. -Kegels for strengthening PF and urgency episodes. -Bowel regimen. 3. Right flank pain (R10.9: Unspecified abdominal pain) Intermittent. R sided. Deep. Radiates to front. Occasionally sharp. Night is worst. Unsure if pain worsens with urination. Pain worsens with movement, pt attributes to adhesions, which she had similar pain for previously. Worsens with constipation. Likely from adhesions due to pt's hx not stone. -Recommend bowel regimen, follow up with General Surgeon if she desires diagnostic laparoscopy, lysis of adhesions. She knows the risk of recurrence and pain, along with intraop complications given complex surgical hx. 4. Renal cyst (N28.1: Cyst of kidney, acquired) CT AP wo con 06/16/22 - Tiny rt renal cortical hyperdense cyst. Simple cysts do not require monitoring. 5. Rash of body (R21: Rash and other nonspecific skin eruption) Two weeks ago, R side of face was swollen/numbness. Went to PCP was given prednisone. Spread towards arm/abdomen, saw supervisor heat treating. Was given Kenalog shot and steroid cream. Neither improved rash. Pt/current workup un (more content not included)... Normal [facility] Comment on above: Result Comment: Elec tronically Signed By: Rajni Rouse MD\.br\Date and Time Signed: 07/29/22 12:09 EDT\.br\Electronically Co-Signed By: Debbie Peacock\.br\Date and Time Co-Signed: 07/29/22 09:20 EDT CNOVon 07-28-2022 CNOV Normal [facility] Heart and Vascular Office/Cl inic Noteon 07-25-2022 Heart and Vascular Office/Clinic Note History of Present Illness Patient is a very pleasant 32-year-old female referred to our office from the emergency room on 06/10/2022 where she presented with lightheadedness, dizziness, and a syncopal episode. She had been diagnosed with Lyme disease 2 weeks prior to her ER visit. Troponins were negative, so possibility of Lyme carditis was low. Patient was referred to our office from the emergency room. Review of Systems Constitutional: no fever, no sweats, no weakness Skin: no rash, no lesions, nobruising/petechiae ENMT: no sore throat, no congestion, no hoarseness Respiratory: no shortness of breath, no cough, no orthopnea, no wheezing Cardiovascular: no chest pain, no palpitations, no edema Gastrointestinal: no nausea, no vomiting, no diarrhea, no GI bleeding Genitourinary: no anuria/oliguria no hematuria Musculoskeletal: no back pain, no trauma Neurologic: no headache, no dizziness, no numbness, no weakness Psychiatric: no sleeping problems, no irritability, no anxiety/depression. Heme/Lymph: no bleeding tendency, no bruising tendency Allergy/Immunologic: no recurrent infections, no impaired immunity Additional ROS info: Except as noted in the above Review of Systems and in the History of Present Illness all other systems have been reviewed and are negative or noncontributory. Physical Exam General: alert, no acute distress Skin: warm, dry intact Head: atraumatic, normocephalic Neck: Trachea midline, no JVD, no bruit Eye: normal conjunctiva, sclera clear ENMT: oral mucosa moist Cardiovascular: regular rate and rhythm, nomurmur normal peripheral perfusion Respiratory: Lungs CTA, respirations non labored Chest wall: no deformity. Gastrointestinal: soft, non distended, no tenderness, no guarding. Back: No tenderness, Normal ROM, Normal alignment. Extremities: no edema, no deformity, no trauma Neurological: oriented x 4, LOC appropriate for agesensation equal & normal bilaterally, speech normal Psychiatric: cooperative, affect appropriate for age, normal judgement, normal psychiatric thoughts. Follow-up No qualifying data available Problem List/Past Medical History Ongoing BMI 30.0-30.9,adult LUQ pain Nausea Historical Allergic rhinitis Anemia Hypothyroidism Metabolic syndrome PCOS- polycystic ovary syndrome Procedure/Surgical History Revision (01/29/2022), Gastric sleeve (02/15/2021), Esophagogastroduodenos copy (01/20/2021), Hysterectomy (11/04/2020). Medications acetaminophen-oxycodon e 325 mg-5 mg Tab, 1 tab(s), Oral, q4hr, PRN, Not taking Antivert 12.5 mg Tab, 12.5 mg= 1 tab(s), Oral, TID, PRN Bentyl 10 mg Cap, 20 mg= 2 cap(s), Oral, QID Carafate Tab, 1 gm= 1 tab(s), Oral, QID, Not taking doxycycline hyclate 100 mg Cap, 100 mg= 1 cap(s), Oral, BID, Not taking Flomax 0.4 mg Cap, 0.4 mg= 1 cap(s), Oral, Daily, Not taking gabapentin 300 mg Cap, See Instructions, Not taking levothyroxine 125 mcg (0.125 mg) Tab, 125 mcg= 1 tab(s), Oral, Daily Lexapro 10 mg Tab, 10 mg= 1 tab(s), Oral, Daily Lexapro 5 mg oral tablet, 5 mg= 1 tab(s), Oral, Daily liothyronine 5 mcg Tab, 5 mcg, Oral, Daily, 1 refills mirtazapine 15 mg Tab, Not taking mirtazapine 15 mg Tab, 15 mg= 1 tab(s), Oral, Once a day (at bedtime) Multi Vitamins oral tablet, 1 tab(s), Oral, Daily ondansetron 4 mg Dis Tab, 4 mg= 1 tab(s), Oral, q6hr ProFe, 180 mg, Oral, Daily, Not taking promethazine 12.5 mg oral tablet, 12.5 mg= 1 tab(s), Oral, q4hr, Not taking promethazine 25 mg Tab, 25 mg= 1 tab(s), Oral, q6hr, PRN, Not taking promethazine 25 mg Tab, 25 mg= 1 tab(s), Oral, q6hr, PRN, Not taking Protonix 40 mg Tab-DR, 40 mg= 1 tab(s), Oral, BID traMADOL 50 mg Tab, 50 mg= 1 tab(s), Oral, q12hr, PRN Zofran ODT 4 mg Tab, 4 mg= 1 tab(s), Oral, TID, Not taking Allergies codeine (unknown) Social History Alcohol - Denies Alcohol Use, 12/20/2020 Substance Abuse - Denies Substance Abuse, 12/20/2020 Tobacco - Denies Tobacco Use, 12/20/2020 Never (less than 100 in lifetime) Tobacco Use:. Never Smokeless Tobacco Use:. Ready to change: No. Household tobacco concerns: No., 06/26/2022 Family History Diabetes mellitus type 2: Mother. Hypertension: Mother and Father. Hypothyroidism: Father. Mitral valve disorder: Negative: Father. Immunizations Vaccine Date Status Comments influenza virus vaccine, inactivated 11/16/2021 Recorded SARS-CoV-2 (COVID-19) mRNA BNT-162b2 vax 02/18/2021 Recorded 2022-05-05: TPVALL influenza virus vaccine, inactivated 01/01/2021 Recorded influenza virus vaccine, inactivated 12/25/2020 Recorded SARS-CoV-2 (COVID-19) Ad26 vaccine 06/23/2020 Recorded 2022-05-05: TPVAL influenza virus vaccine, inactivated 11/28/[address] [facility] Comment on above: Result Comment: Elec tronically Signed By: Guero JOHNSON, Raulito Galvan Other Comment: Proba ble no-show. CNPNon 07-23-2022 CNPN Normal [facility] Basic metabolic 2000 panelon 07-22-2022 Anion gap [Moles/Vol] 13 mmol/L Normal 9-18 [facility] Comment on above: Order Comment: Speci men Type: BLOOD SPECIMENOrdering Facility: [facility] Address: [address] [address] Performed By: #### 2 4321-2 ####[facility] LABCLIA [id number] [place] [address] [place] Calcium [Mass/Vol] 9.3 mg/dL Normal 8.5-10.2 [facility] Comment on above: Order Comment: Speci men Type: BLOOD SPECIMENOrdering Facility: [facility] Address: [address] [address] Performed By: #### 2 4321-2 ####[facility] LABCLIA [id number] [place] [address] [place] Chloride [Moles/Vol] 105 mmol/L Normal 97-105 [facility] Comment on above: Order Comment: Speci men Type: BLOOD SPECIMENOrdering Facility: [facility] Address: [address] [address] Performed By: #### 2 4321-2 ####[facility] LABCLIA [id number] [place] [address] [place] CO2 [Moles/Vol] 22 mmol/L Normal 22-30 [facility] Comment on above: Order Comment: Speci men Type: BLOOD SPECIMENOrdering Facility: [facility] Address: [address] [address] Performed By: #### 2 4321-2 ####[facility] LABIA [id number] [place] [address] [place] Creatinine [Mass/Vol] 0.83 mg/dL Normal 0.58-0.96 [facility] Comment on above: Order Comment: Speci men Type: BLOOD SPECIMENOrdering Facility: [facility] Address: [address] [place] [address] Performed By: #### 2 4321-2 ####[facility] LABIA [id number] [address] [place] ESTIMATED GLOMERULAR FILTRATION RATE 96 mL/min/1.73m??? Normal >=60 [facility] Comment on above: Order Comment: Speci men Type: BLOOD SPECIMENOrdering Facility: [facility] Address: [address] [place] [address] Result Comment: Rashmi mated Glomerular Filtration Rate (eGFR) is calculated using the 2020 CKD-EPI creatinine equation. This equation utilizes serum creatinine, sex, and age as parameters. The creatinine assay has traceable calibration to isotope dilution-mass spectrometry. Refer to KDIGO guidelines for clinical interpretation. In patients with unstable renal function, e.g. those with acute kidney injury, the eGFR may not accurately reflect actual GFR. Performed By: #### 2 4321-2 ####[facility] LABCLIA [id number] [place] [address] [place] Glucose [Mass/Vol] 87 mg/dL Normal 74-99 [facility] Comment on above: Order Comment: Speci men Type: BLOOD SPECIMENOrdering Facility: [facility] Address: [address] [place] [address] Result Comment: The [place] Diabetes Association (ADA) provides guidance for cutoff values for fasting glucose and random glucose. The ADA defines fasting as no caloric intake for at least 8 hours. Fasting plasma glucose results between 100 to 125 mg/dL indicate increased risk for diabetes (prediabetes).Fasting plasma glucose results greater than or equal to 126 mg/dL meet the criteria for diagnosis of diabetes. In the absence of unequivocal hyperglycemia, results should be confirmed by repeat testing. In a patient with classic symptoms of hyperglycemia or hyperglycemic crisis, random plasma glucose results greater than or equal to 200 mg/dL meet the criteria for diagnosis of diabetes.Reference: Standards of Medical Care in Diabetes 2016, [place] [employer] Association. Diabetes Care. 2016.39(Suppl 1). Performed By: #### 2 4321-2 ####[facility] LABCLIA [id number] [place] [address] [place] Potassium [Moles/Vol] 3.4 mmol/L Low 3.7-5.1 [facility] Comment on above: Order Comment: Speci men Type: BLOOD SPECIMENOrdering Facility: [facility] Address: [address] [place] [address] Performed By: #### 2 4321-2 ####[facility] LABCLIA [id number] [place] [address] [place] Sodium [Moles/Vol] 140 mmol/L Normal 136-144 [facility] Comment on above: Order Comment: Speci men Type: BLOOD SPECIMENOrdering Facility: [facility] Address: [address] [address] Performed By: #### 2 4321-2 ####[facility] LABCLIA [id number] [place] [address] [place] Urea nitrogen [Mass/Vol] 12 mg/dL Normal 7-21 [facility] Comment on above: Order Comment: Speci men Type: BLOOD SPECIMENOrdering Facility: [facility] Address: [address] [address] Performed By: #### 2 4321-2 ####[facility] LABCLIA [id number] [place] [address] [place] CBC W Auto Differential pane l (Bld)on 07-22-2022 Basophils (Bld) [#/Vol] 0.04 10*3/uL Normal <0.11 [facility] Comment on above: Order Comment: Speci men Type: BLOOD SPECIMENOrdering Facility: [facility] Address: [address] [place] [address] Performed By: #### 5 7021-8 ####[facility] LABCLIA [id number] [place] [address] [place] Basophils/100 WBC (Bld) 0.6 % Normal [facility] Comment on above: Order Comment: Speci men Type: BLOOD SPECIMENOrdering Facility: [facility] Address: [address] [place] [address] Performed By: #### 5 7021-8 ####[facility] LABCLIA [id number] [place] [address] [place] Differential cell count method Nom (Bld) Auto Normal [facility] Comment on above: Order Comment: Speci men Type: BLOOD SPECIMENOrdering Facility: [facility] Address: [address] Performed By: #### 5 7021-8 ####[facility] LABCLIA [id number] [place] [address] [place] Eosinophils (Bld) [#/Vol] 0.04 10*3/uL Normal <0.46 [facility] Comment on above: Order Comment: Speci men Type: BLOOD SPECIMENOrdering Facility: [facility] Address: [address] Performed By: #### 5 7021-8 ####[facility] LABCLIA [id number] [place] [address] [place] Eosinophils/100 WBC (Bld) 0.6 % Normal [facility] Comment on above: Order Comment: Speci men Type: BLOOD SPECIMENOrdering Facility: [facility] Address: [address] [place] [address] Performed By: #### 5 7021-8 ####[facility] LABIA [id number] [place] [address] [place] Erythrocyte distribution width (RBC) [Ratio] 12.4 % Normal 11.5-15.0 [facility] Comment on above: Order Comment: Speci men Type: BLOOD SPECIMENOrdering Facility: [facility] Address: [address] [place] [address] Performed By: #### 5 7021-8 ####[facility] LABIA [id number] [address] [place] Hematocrit (Bld) [Volume fraction] 39.6 % Normal 36.0-46.0 [facility] Comment on above: Order Comment: Speci men Type: BLOOD SPECIMENOrdering Facility: [facility] Address: [address] [place] [address] Performed By: #### 5 7021-8 ####[facility] LABIA [id number] [place] [address] [place] Hemoglobin (Bld) [Mass/Vol] 13.6 g/dL Normal 11.5-15.5 [facility] Comment on above: Order Comment: Speci men Type: BLOOD SPECIMENOrdering Facility: [facility] Address: [address] [place] [address] Performed By: #### 5 7021-8 ####[facility] LABIA [id number] [place] [address] [place] Immature granulocytes (Bld) [#/Vol] 10*3/uL Normal <0.10 [facility] Comment on above: Order Comment: Speci men Type: BLOOD SPECIMENOrdering Facility: [facility] Address: [address] Performed By: #### 5 7021-8 ####[facility] LABCLIA [id number] [address] [place] Immature granulocytes/100 WBC (Bld) 0.1 % Normal [facility] Comment on above: Order Comment: Speci men Type: BLOOD SPECIMENOrdering Facility: [facility] Address: [address] Performed By: #### 5 7021-8 ####[facility] LABIA [id number] [place] [address] [place] Lymphocytes (Bld) [#/Vol] 1.94 10*3/uL Normal 1.00-4.00 [facility] Comment on above: Order Comment: Speci men Type: BLOOD SPECIMENOrdering Facility: [facility] Address: [address] [place], [place] [address] Performed By: #### 5 7021-8 ####[facility] LABIA [id number] [address] [place] Lymphocytes/100 WBC (Bld) 28.6 % Normal [facility] Comment on above: Order Comment: Speci men Type: BLOOD SPECIMENOrdering Facility: [facility] Address: [address] Performed By: #### 5 7021-8 ####[facility] LABIA [id number] [place] [address] [place] MCH (RBC) [Entitic mass] 31.1 pg Normal 26.0-34.0 [facility] Comment on above: Order Comment: Speci men Type: BLOOD SPECIMENOrdering Facility: [facility] Address: [address] [place], [place] [address] Performed By: #### 5 7021-8 ####[facility] LABCLIA [id number] [place] [address] [place] MCHC (RBC) [Mass/Vol] 34.3 g/dL Normal 30.5-36.0 [facility] Comment on above: Order Comment: Speci men Type: BLOOD SPECIMENOrdering Facility: [facility] Address: [address] Performed By: #### 5 7021-8 ####[facility] LABIA [id number] [place] [address] [place] MCV (RBC) [Entitic vol] 90.6 fL Normal 80.0-100.0 [facility] Comment on above: Order Comment: Speci men Type: BLOOD SPECIMENOrdering Facility: [facility] Address: [address] [place], [place] [address] Performed By: #### 5 7021-8 ####[facility] LABIA [id number] [place] [address] [place] Monocytes (Bld) [#/Vol] 0.40 10*3/uL Normal <0.87 [facility] Comment on above: Order Comment: Speci men Type: BLOOD SPECIMENOrdering Facility: [facility] Address: [address] Performed By: #### 5 7021-8 ####[facility] LABIA [id number] [address] [place] Monocytes/100 WBC (Bld) 5.9 % Normal [facility] Comment on above: Order Comment: Speci men Type: BLOOD SPECIMENOrdering Facility: [facility] Address: [address] Performed By: #### 5 7021-8 ####[facility] LABIA [id number] [place] [address] [place] Neutrophils (Bld) [#/Vol] 4.36 10*3/uL Normal 1.45-7.50 [facility] Comment on above: Order Comment: Speci men Type: BLOOD SPECIMENOrdering Facility: [facility] Address: [address] [place] [address] Performed By: #### 5 7021-8 ####[facility] LABCLIA [id number] [place] [address] [place] Neutrophils/100 WBC (Bld) 64.2 % Normal [facility] Comment on above: Order Comment: Speci men Type: BLOOD SPECIMENOrdering Facility: [facility] Address: [address] [place] [address] Performed By: #### 5 7021-8 ####[facility] LABCLIA [id number] [place] [address] [place] Nucleated RBC (Bld) [#/Vol] 10*3/uL Normal <0.01 [facility] Comment on above: Order Comment: Speci men Type: BLOOD SPECIMENOrdering Facility: [facility] Address: [address] [place], [place] [address] Performed By: #### 5 7021-8 ####[facility] LABIA [id number] [place] [address] [place] Nucleated RBC/100 WBC (Bld) [Ratio] 0.0 /100 WBC Normal [facility] Comment on above: Order Comment: Speci men Type: BLOOD SPECIMENOrdering Facility: [facility] Address: [address] [place], [place] [address] Performed By: #### 5 7021-8 ####[facility] LABCLIA [id number] [place] [address] [place] Platelet mean volume (Bld) [Entitic vol] 11.6 fL Normal 9.0-12.7 [facility] Comment on above: Order Comment: Speci men Type: BLOOD SPECIMENOrdering Facility: [facility] Address: [address] Performed By: #### 5 7021-8 ####[facility] LABIA [id number] [place] [address] [place] Platelets (Bld) [#/Vol] 249 10*3/uL Normal 150-400 [facility] Comment on above: Order Comment: Speci men Type: BLOOD SPECIMENOrdering Facility: [facility] Address: [address] [place], [place] [address] Performed By: #### 5 7021-8 ####[facility] LABIA [id number] [place] [address] [place] RBC (Bld) [#/Vol] 4.37 10*6/uL Normal 3.90-5.20 [facility] Comment on above: Order Comment: Speci men Type: BLOOD SPECIMENOrdering Facility: [facility] Address: [address] [place], [place] [address] Performed By: #### 5 7021-8 ####[facility] LABIA [id number] [place] [address] [place] WBC (Bld) [#/Vol] 6.79 10*3/uL Normal 3.70-11.00 [facility] Comment on above: Order Comment: Speci men Type: BLOOD SPECIMENOrdering Facility: [facility] Address: [address] [place], [place] [address] Performed By: #### 5 7021-8 ####[facility] LABIA [id number] [place] [address] [place] CONSULTon 07-22-2022 CONSULT Normal [facility] ED NOTEon 07-22-2022 ED NOTE Normal [facility] ED NOTE Normal [facility] ED PROV NOTEon 07-22-2022 ED PROV NOTE Normal [facility] Heteroph Ab Ser Ql LAon 06-0 Heterophile Ab LA Ql (S) Negative Normal Negative [facility] Comment on above: Order Comment: Speci men Type: BLOOD SPECIMENOrdering Facility: [facility] Address: [address] [place] [address] Result Comment: Infe ctious Mononucleosis rapid test is used as an aid in diagnosis of acute infection with Prabhakar-Rangel virus (EBV). The antibody levels may occasionally remain elevated up to several months after a primary EBV infection. Final interpretation should be done in conjunction with EBV-specific serology and clinical correlation. False positive results may occasionally be seen with other infectious agents such as Cytomegalovirus, Toxoplasma, and HIV among others as well as non-infectious conditions such as lymphoma. Clinical correlation is required. Performed By: #### 5 213-4 ####[facility] LABCLIA [id number] [facility] [place] [address] [place] XR CHEST 1V FRONTAL PORTon 0 07-22-2022 XR CHEST 1V FRONTAL PORT Normal [facility] Ambulatory Visit Summaryon 0 07-20-2022 Ambulatory Visit Summary ABBEY GARCIA :1990 Visit Date:07/20/2022 Ambulatory Visit Instructions Your Diagnosis Rash of face, Rash of body Fatigue Adult BMI 28.0-28.9 kg/sq m Non-smoker Your Care Team Attending Physician - Jaquan Paula Primary Care Physician - Jaquan Paula This Is Your Medications List acetaminophen-oxycodon e (acetaminophen-oxycodo ne 325 mg-5 mg Tab) dicyclomine (Bentyl 10 mg Cap) doxycycline (doxycycline hyclate 100 mg Cap) escitalopram (Lexapro 10 mg Tab) escitalopram (Lexapro 5 mg oral tablet) gabapentin (gabapentin 300 mg Cap) iron polysaccharide (ProFe) levothyroxine (levothyroxine 125 mcg (0.125 mg) Tab) liothyronine (liothyronine 5 mcg Tab) meclizine (Antivert 12.5 mg Tab) methylPREDNISolone (Medrol 4 mg Tab) mirtazapine (mirtazapine 15 mg Tab) mirtazapine (mirtazapine 15 mg Tab) multivitamin (Multi Vitamins oral tablet) ondansetron (Zofran ODT 4 mg Tab) ondansetron (ondansetron 4 mg Dis Tab) pantoprazole (Protonix 40 mg Tab-DR) promethazine (promethazine 12.5 mg oral tablet) promethazine (promethazine 25 mg Tab) promethazine (promethazine 25 mg Tab) sucralfate (Carafate Tab) tamsulosin (Flomax 0.4 mg Cap) tramadol (traMADOL 50 mg Tab) Procedures Performed Revision (01/29/2022), Gastric sleeve (02/15/2021), Esophagogastroduodenos copy (01/20/2021), Hysterectomy (11/04/2020). Discharge Vitals Heart Rate (Peripheral) 73 Blood Pressure 122/74 Height 168 cm Height 66 in Weight 81.1 kg Weight 178.42 lb BMI 28.73 What to do next Scheduled Follow-Up Appointments 2022 1:00 PM EDT With: Where: [facility] Services Wednesday 11:00 AM EDT With: Nate PRICE MD Where: [facility] Consenton 07-20-2022 Consent [id number]. 00CD:127 [facility] Family Medicine Office/Clini c Noteon 07-20-2022 Family Medicine Office/Clinic Note Chief Complaint pt here today for Rash over face and right arm HPI Staff 32 year old presents with a rash all over right side, ? shingles Onset: started 1 day ago and is getting worse rates pain 6 out of 10 right right side of jaw, Rash to right side of face and right arm characteristics: red, dry, itches, feeling like she has something stuck in her throat on the right side when she swallows what have you tried? Benadryl Q4hrs with no improvement pt is nauseated and intermittent feeling of SOB unknown cause nothing new has been tired Questions or Concerns: none History of Present Illness pt presents today for rash on face, neck arms Review of Systems PHQ Score Initial Depression Screen Score: 0 ROS - Provider Constitutional: no fever, no chills, no sweats, no fatigue Respiratory: no shortness of breath, no cough, no orthopnea, no wheezing. Cardiovascular: no chest pain, no palpitations, no edema. Neurologic: no headache, no dizziness, no numbness, no weakness. skin: red raished ithchy rash on face, neck arms Physical Exam Vitals & Measurements HR: 73(Peripheral) BP: 122/74 SpO2: 99% HT: 66 in HT: 168 cm WT: 81.1 kg WT: 178.42 lb BMI: 28.73 General: alert, no acute distress ENMT: oral mucosa moist, no pharyngeal erythema or exudate Cardiovascular: regular rate and rhythm, normal peripheral perfusion Respiratory: Lungs CTA, respirations non labored Extremities: no deformity, no trauma Neurological: oriented x 4, LOC appropriate for age, CN II-XII intact, motor strength equal & normal bilaterally, speech normal Skin: red raised itchy rash, right upper eye lid swollen Assessment/Plan 1. Rash of face, (R21: Rash and other nonspecific skin eruption)Rash of body pt presents for itchy red raised rash on face, neck arms. started yesterday she took benadryl and woke up with it worse today. right upper eye lid is swollen. kenalog injection given in office today. Ordered: methylPREDNISolone, = 1 packet(s), Oral, As Directed, as directed on package labeling, X 6 day(s), # 21 tab(s), Refills(s) 0, Pharmacy: [facility]/pharmacy #[id number], 168, cm, 07/20/22 10:48:00 EDT, Height/Length Dosing, 81.1, kg, 07/20/22 10:48:00 EDT, Weight Dosing triamcinolone, 40 mg = 1 mL, Injection, IntraMuscular, Once, Stop date 07/20/22 11:10:00 EDT, Routine, Start date 07/20/22 11:10:00 EDT, 07/20/22 11:10:00 EDT Free T4 T3 Free Thyroid Stimulating Hormone 3. Fatigue (R53.83: Other fatigue) will check thyroid levels. 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 Adult BMI 28.0-28.9 kg/sq m (Z68.28: Body mass index [BMI] 28.0-28.9, adult) bmi education complete Ordered: methylPREDNISolone, = 1 packet(s), Oral, As Directed, as directed on package labeling, X 6 day(s), # 21 tab(s), Refills(s) 0, [id number], 168, cm, 07/20/22 10:48:00 EDT, Height/Length Dosing, 81.1, kg, 07/20/22 10:48:00 EDT, Weight Dosing triamcinolone, 40 mg = 1 mL, Injection, IntraMuscular, Once, Stop date 07/20/22 11:10:00 EDT, Routine, Start date 07/20/22 11:10:00 EDT, 07/20/22 11:10:00 EDT Free T4 T3 Free Thyroid Stimulating Hormone 5. Non-smoker (Z78.9: Other specified health status) continue not smoking Ordered: methylPREDNISolone, = 1 packet(s), Oral, As Directed, as directed on package labeling, X 6 day(s), # 21 tab(s), Refills(s) 0, Pharmacy: [facility]/pharmacy #[id number], 168, cm, 07/20/22 10:48:00 EDT, Height/Length Dosing, 81.1, kg, 07/20/22 10:48:00 EDT, Weight Dosing triamcinolone, 40 mg = 1 mL, Injection, IntraMuscular, Once, Stop date 07/20/22 11:10:00 EDT, Routine, Start date 07/20/22 11:10:00 EDT, 07/20/22 11:10:00 EDT Free T4 T3 Free Thyroid Stimulating Hormone Follow-up No qualifying data available Problem List/Past Medical History Ongoing BMI 30.0-30.9,adult LUQ pain Nausea Historical Allergic rhinitis Anemia Hypothyroidism Metabolic syndrome PCOS- polycystic ovary syndrome Procedure/Surgical History Revision (01/29/2022), Gastric sleeve (02/15/2021), Esophagogastroduodenos copy (01/20/2021), Hysterectomy (11/04/2020). Medications acetaminophen-oxycodon e 325 mg-5 mg Tab, 1 tab(s), Oral, q4hr, PRN, Not taking Antivert 12.5 mg Tab, 12.5 mg= 1 tab(s), Oral, TID, PRN Bentyl 10 mg Cap, 20 mg= 2 cap(s), Oral, QID Carafate Tab, 1 gm= 1 tab(s), Oral, QID, Not taking doxycycline hyclate 100 mg Cap, 100 mg= 1 cap(s), Oral, BID, Not taking Flomax 0.4 mg Cap, 0.4 mg= 1 cap(s), Oral, Daily, Not (more content not included)... Normal [facility] Comment on above: Result Comment: Elec tronically Signed By: Jaquan Paula\.br\Date and Time Signed: 07/20/22 11:58 EDT Physician Orderon 07-20-2022 Physician Order [id number] 0CD:127 [facility] CNPNon 07-01-2022 CNPN Normal [facility] CNCOon 06-29-2022 CNCO Letter Text Normal [facility] Physician Referralon 023 Physician Referral [id number]. 00CD:127 [facility] Ambulatory Visit Summaryon 0 06-26-2022 Ambulatory Visit Summary ABBEY GARCIA :1990 Visit Date:06/26/2022 Ambulatory Visit Instructions Your Diagnosis Kidney stones BMI 29.0-29.9,adult Overweight Your Care Team Attending Physician - Jaquan Paula Primary Care Physician - Jaquan Paula This Is Your Medications List acetaminophen-oxycodon e (acetaminophen-oxycodo ne 325 mg-5 mg Tab) acyclovir (acyclovir 400 mg Tab) ciprofloxacin (ciprofloxacin 500 mg Tab) dicyclomine (Bentyl 10 mg Cap) doxycycline (doxycycline hyclate 100 mg Cap) escitalopram (Lexapro 10 mg Tab) escitalopram (Lexapro 5 mg oral tablet) gabapentin (gabapentin 300 mg Cap) iron polysaccharide (ProFe) levothyroxine (levothyroxine 125 mcg (0.125 mg) Tab) liothyronine (liothyronine 5 mcg Tab) meclizine (Antivert 12.5 mg Tab) metronidazole (MetroNIDAZOLE 500 mg Tab) mirtazapine (mirtazapine 15 mg Tab) mirtazapine (mirtazapine 15 mg Tab) multivitamin (Multi Vitamins oral tablet) ondansetron (Zofran ODT 4 mg Tab) ondansetron (ondansetron 4 mg Dis Tab) pantoprazole (Protonix 40 mg Tab-DR) promethazine (promethazine 12.5 mg oral tablet) promethazine (promethazine 25 mg Tab) promethazine (promethazine 25 mg Tab) sucralfate (Carafate Tab) tamsulosin (Flomax 0.4 mg Cap) tramadol (traMADOL 50 mg Tab) [Image Removed: STOP]Stop taking these medications Misc Prescription ( minipill Birthcontrol) acetaminophen-codeine (acetaminophen-codeine 300 mg-15 mg oral tablet) duloxetine (Cymbalta) metformin sertraline Procedures Performed Revision (01/29/2022), Gastric sleeve (02/15/2021), Esophagogastroduodenos copy (01/20/2021), Hysterectomy (11/04/2020). Discharge Vitals Heart Rate (Peripheral) 70 Respiratory Rate 16 Blood Pressure 124/76 Height 168.0 cm Height 66 in Weight 82.55 kg Weight 181.61 lb BMI 29.25 What to do next Scheduled Follow-Up Appointments Wednesday 11:00 AM EDT With: Where: [facility] Wednesday 1:00 PM EDT With: Guero JOHNSON, Raulito Galvan Where: [facility] Medications What How Much When Why Instructions Changed levothyroxine (levothyroxine 125 mcg (0.125 mg) Tab) 1 Tablets By Mouth Every day Unchanged acetaminophen-oxycodon e (acetaminophen-oxycodo ne 325 mg-5 mg Tab) 1 Tablets By Mouth Every 4 hours as needed for for pain Unchanged acyclovir (acyclovir 400 mg Tab) 1 Tablets By Mouth 2 times a day Duration: 14 Days Unchanged ciprofloxacin (ciprofloxacin 500 mg Tab) 1 Tablets By Mouth Every 12 hours Duration: 10 Days Unchanged dicyclomine (Bentyl 10 mg Cap) 2 Capsules By Mouth 4 times a day Unchanged doxycycline (doxycycline hyclate 100 mg Cap) 1 Capsules By Mouth 2 times a day Positive Lyme disease serology Unchanged escitalopram (Lexapro 10 mg Tab) 1 Tablets By Mouth Every day Unchanged escitalopram (Lexapro 5 mg oral tablet) 1 Tablets By Mouth Every day Unchanged gabapentin (gabapentin 300 mg Cap) See instructions Neuropathy 1 cap(s) Oral daily x 1 day, 1 tab BID x 1 day, then 1 tab TID thereafter. Unchanged iron polysaccharide (ProFe) 180 Milligram By Mouth Every day Unchanged liothyronine (liothyronine 5 mcg Tab) 5 Microgram By Mouth Every day Unchanged meclizine (Antivert 12.5 mg Tab) 1 Tablets By Mouth 3 times a day as needed for for dizziness BMI 29.0-29.9,adult Unchanged metronidazole (MetroNIDAZOLE 500 mg Tab) 1 Tablets By Mouth Every 8 hours Duration: 10 Days Unchanged mirtazapine (mirtazapine 15 mg Tab) 1 Tablets By Mouth Once a day (at bedtime) Unchanged mirtazapine (mirtazapine 15 mg Tab) Unchanged multivitamin (Multi Vitamins oral tablet) 1 Tablets By Mouth Every day Unchanged ondansetron (ondansetron 4 mg Dis Tab) 1 Tablets By Mouth Every 6 hours Unchanged ondansetron (Zofran ODT 4 mg Tab) 1 Tablets By Mouth 3 times a day Unchanged pantoprazole (Protonix 40 mg Tab-DR) 1 Tablets By Mouth 2 times a day Unchanged promethazine (promethazine 12.5 mg oral tablet) 1 Tablets By Mouth Every 4 hours Unchanged promethazine (promethazine 25 mg Tab) 1 Tablets By Mouth Every 6 hours as needed for as needed for nausea/vomiting Unchanged promethazine (promethazine 25 mg Tab) 1 Tablets By Mouth Every 6 hours as needed for as needed for nausea/vomiting Unchanged sucralfate (Carafate Tab) 1 Tablets By Mouth 4 times a day Unchanged tamsulosin (Flomax 0.4 mg Cap) 1 Capsules By Mouth Every day Unchanged tramadol (traMADOL 50 mg Tab) 1 Tablets By Mouth Every 12 hours as needed for for pain Pickup at [id number] Pharmacy Information [id number]: [address], [place] [id number] [phone] What How Much When Why Comments Stop Taking acetaminophen-codeine (acetaminophen-codeine 300 mg-15 mg oral tablet) 1 Tablets By Mouth 2 times a day Right shoulder pain Stop Taking duloxetine (Cymbalta) 60 Milligram By Mouth 2 times a day Stop Taking metformin 1,000 Milligram By Mouth 2 times a day Stop Taking Misc (more content not included)... Normal [facility] Family Medicine Office/Clini c Noteon 06-26-2022 Family Medicine Office/Clinic Note Chief Complaint follow up hospital [facility] for bowel obstruction and kidney pain [facility] Staff hospital follow up [facility] for kidney pain and bowel blockage questions/concerns: have her on a regimen for the bowels, senna bid and mirilax tid and another to fill only if things get really bad been okay so far and then the kidney pain is bad, had to go to work today and it was rough getting through History of Present Illness pt presents today for follow up on ER visit at [facility]. She is having kidney pain still. Review of Systems PHQ Score Initial Depression Screen Score: 1 ROS - Provider Constitutional: no fever, no chills, no sweats, no fatigue Respiratory: no shortness of breath, no cough, no orthopnea, no wheezing. Cardiovascular: no chest pain, no palpitations, no edema. Neurologic: no headache, no dizziness, no numbness, no weakness. Physical Exam Vitals & Measurements HR: 70(Peripheral) RR: 16 BP: 124/76 SpO2: 99% HT: 66 in HT: 168.0 cm WT: 82.55 kg WT: 181.61 lb BMI: 29.25 General: alert, no acute distress ENMT: oral mucosa moist, no pharyngeal erythema or exudate Cardiovascular: regular rate and rhythm, normal peripheral perfusion Respiratory: Lungs CTA, respirations non labored Extremities: no deformity, no trauma Neurological: oriented x 4, LOC appropriate for age, CN II-XII intact, motor strength equal & normal bilaterally, speech normal Assessment/Plan 1. Kidney stones (N20.0: Calculus of kidney) pt presents today with kidney stone pain. she was admitted to for 6 days due to bowel blockage. she is now on a regimen to help keep her bowels moving. pt is in need of something for pain. discussed pros and cons of prescribing narcotics. informed her that the narcotic use could be what is causing the constipation to be so bad. offered toradol. but she is afraid to do that again due to have gastric bypass. ER gave her tramadol that she said does take the edge off a little. informed her I am unable to prescribe anymore narcotics to her. Will send tramadol. she has appointment with Dr. Moreno on Wednesday. He is going to figure out if she has adhesions causing this pain. 2. BMI 29.0-29.9,adult (Z68.29: Body mass index [BMI] 29.0-29.9, adult) BMI education complete 3. Overweight (E66.3: Overweight) see above Orders: tramadol, 50 mg = 1 tab(s), Oral, q12hr, PRN for pain, # 30 tab(s), Refills(s) 0, Pharmacy: [id number], 168, cm, 06/26/22 14:12:00 EDT, Height/Length Dosing, 82.5, kg, 06/26/22 14:12:00 EDT, Weight Dosing Follow-up No qualifying data available Problem List/Past Medical History Ongoing BMI 30.0-30.9,adult LUQ pain Nausea Historical Allergic rhinitis Anemia Hypothyroidism Metabolic syndrome PCOS- polycystic ovary syndrome Procedure/Surgical History Revision (01/29/2022), Gastric sleeve (02/15/2021), Esophagogastroduodenos copy (01/20/2021), Hysterectomy (11/04/2020). Medications acetaminophen-oxycodon e 325 mg-5 mg Tab, 1 tab(s), Oral, q4hr, PRN, Not taking acyclovir 400 mg Tab, 400 mg= 1 tab(s), Oral, BID, Not taking Antivert 12.5 mg Tab, 12.5 mg= 1 tab(s), Oral, TID, PRN Bentyl 10 mg Cap, 20 mg= 2 cap(s), Oral, QID Carafate Tab, 1 gm= 1 tab(s), Oral, QID, Not taking ciprofloxacin 500 mg Tab, 500 mg= 1 tab(s), Oral, q12hr, Not taking doxycycline hyclate 100 mg Cap, 100 mg= 1 cap(s), Oral, BID, Not taking Flomax 0.4 mg Cap, 0.4 mg= 1 cap(s), Oral, Daily, Not taking gabapentin 300 mg Cap, See Instructions, Not taking levothyroxine 125 mcg (0.125 mg) Tab, 125 mcg= 1 tab(s), Oral, Daily Lexapro 10 mg Tab, 10 mg= 1 tab(s), Oral, Daily Lexapro 5 mg oral tablet, 5 mg= 1 tab(s), Oral, Daily liothyronine 5 mcg Tab, 5 mcg, Oral, Daily, 1 refills MetroNIDAZOLE 500 mg Tab, 500 mg= 1 tab(s), Oral, q8hr, Not taking mirtazapine 15 mg Tab, Not taking mirtazapine 15 mg Tab, 15 mg= 1 tab(s), Oral, Once a day (at bedtime) Multi Vitamins oral tablet, 1 tab(s), Oral, Daily ondansetron 4 mg Dis Tab, 4 mg= 1 tab(s), Oral, q6hr ProFe, 180 mg, Oral, Daily, Not taking promethazine 12.5 mg oral tablet, 12.5 mg= 1 tab(s), Oral, q4hr, Not taking promethazine 25 mg Tab, 25 mg= 1 tab(s), Oral, q6hr, PRN, Not taking promethazine 25 mg Tab, 25 mg= 1 tab(s), Oral, q6hr, PRN, Not taking Protonix 40 mg Tab-DR, 40 mg= 1 tab(s), Oral, BID traMADOL 50 mg Tab, 50 mg= 1 tab(s), Oral, q12hr, PRN Zofran ODT 4 mg Tab, 4 mg= 1 tab(s), Oral, TID, Not taking Allergies codeine (unknown) Social History Alcohol - Denies Alcohol Use, 12/20/2020 Substance Abuse - Denies Substance Abuse, 12/20/2020 Tobacco - Denies Tobacco Use, 12/20/2020 Never (less than 100 in lifetime) Tobacco Use:. Never Smokeless Tobacco Use:. Ready to change: No. Household tobacco concerns: No., 06/26/2022 Family History Diabetes mellitus type 2: Mother. Hypertension: Mother and Father. Hypothyroidism: Father. Mitral valve disorder: Negative: Father. Immunizations Vaccine Date Status Comments (more content not included)... Normal [facility] Comment on above: Result Comment: Elec tronically Signed By: Jaquan Paula\.br\Date and Time Signed: 06/26/22 15:04 EDT Comprehensive metabolic 2000 panelon 06-24-2022 Albumin [Mass/Vol] 3.8 g/dL Low 3.9-4.9 [facility] Comment on above: Order Comment: Speci men Type: BLOOD SPECIMENOrdering Facility: [facility] Address: [address] [place] [address] Performed By: #### 2 43204-22, ####[facility] LABCLIA [id number] [place] [address] [place] ALP [Catalytic activity/Vol] 59 U/L Normal 34-123 [facility] Comment on above: Order Comment: Speci men Type: BLOOD SPECIMENOrdering Facility: [facility] Address: [address] [place], [place] [address] Performed By: #### 2 43204-22, ####[facility] LABCLIA [id number] [place] [address] [place] ALT [Catalytic activity/Vol] 21 U/L Normal 7-38 [facility] Comment on above: Order Comment: Speci men Type: BLOOD SPECIMENOrdering Facility: [facility] Address: [address] [place] [address] Performed By: #### 2 43204-22, ####[facility] LABCLIA [id number] [place] [address] [place] Anion gap [Moles/Vol] 9 mmol/L Normal 9-18 [facility] Comment on above: Order Comment: Speci men Type: BLOOD SPECIMENOrdering Facility: [facility] Address: [address] [place] [address] Performed By: #### 2 4323-8, ####[facility] LABIA [id number] [place] [address] [place] AST [Catalytic activity/Vol] 35 U/L Normal 13-35 [facility] Comment on above: Order Comment: Speci men Type: BLOOD SPECIMENOrdering Facility: [facility] Address: [address] [place] [address] Result Comment: Resu lts may be falsely increased due to interference from hemolysis. Suggest reorder as clinically indicated. Performed By: #### 2 432-8, ####[facility] LABIA [id number] [place] [address] [place] Bilirubin [Mass/Vol] 0.4 mg/dL Normal 0.2-1.3 [facility] Comment on above: Order Comment: Speci men Type: BLOOD SPECIMENOrdering Facility: [facility] Address: [address] [place] [address] Performed By: #### 2 4323-8, ####[facility] LABIA [id number] [place] [address] [place] Calcium [Mass/Vol] 8.5 mg/dL Normal 8.5-10.2 [facility] Comment on above: Order Comment: Speci men Type: BLOOD SPECIMENOrdering Facility: [facility] Address: [address] [place] [address] Performed By: #### 2 4323-8, ####[facility] LABCLIA [id number] [address] STATES OF [facility] Chloride [Moles/Vol] 108 mmol/L High 97-105 [facility] Comment on above: Order Comment: Speci men Type: BLOOD SPECIMENOrdering Facility: [facility] Address: [address] [place] [address] Performed By: #### 2 4323-8, 38982-5 ####[facility] LABCLIA [id number] [address] [place] CO2 [Moles/Vol] 24 mmol/L Normal 22-30 [facility] Comment on above: Order Comment: Speci men Type: BLOOD SPECIMENOrdering Facility: [facility] Address: [address] [place] [address] Performed By: #### 2 4323-8, 76424-4 ####[facility] LABCLIA [id number] [address] OF [facility] Creatinine [Mass/Vol] 0.85 mg/dL Normal 0.58-0.96 [facility] Comment on above: Order Comment: Speci men Type: BLOOD SPECIMENOrdering Facility: [facility] Address: [address] [place] [address] Performed By: #### 2 4323-8, ####[facility] LABIA [id number] [address] OF [facility] ESTIMATED GLOMERULAR FILTRATION RATE 93 mL/min/1.73m??? Normal >=60 [facility] Comment on above: Order Comment: Speci men Type: BLOOD SPECIMENOrdering Facility: [facility] Address: [address] [place] [address] Result Comment: Rashmi mated Glomerular Filtration Rate (eGFR) is calculated using the 2020 CKD-EPI creatinine equation. This equation utilizes serum creatinine, sex, and age as parameters. The creatinine assay has traceable calibration to isotope dilution-mass spectrometry. Refer to KDIGO guidelines for clinical interpretation. In patients with unstable renal function, e.g. those with acute kidney injury, the eGFR may not accurately reflect actual GFR. Performed By: #### 2 4323-8, ####[facility] LABIA [id number] [place] [address] [place] Glucose [Mass/Vol] 92 mg/dL Normal 74-99 [facility] Comment on above: Order Comment: Geraldo marrero Type: BLOOD SPECIMENOrdering Facility: [facility] Address: [address] [place] [address] Result Comment: The [place] [employer] (ADA) provides guidance for cutoff values for fasting glucose and random glucose. The ADA defines fasting as no caloric intake for at least 8 hours. Fasting plasma glucose results between 100 to 125 mg/dL indicate increased risk for diabetes (prediabetes).Fasting plasma glucose results greater than or equal to 126 mg/dL meet the criteria for diagnosis of diabetes. In the absence of unequivocal hyperglycemia, results should be confirmed by repeat testing. In a patient with classic symptoms of hyperglycemia or hyperglycemic crisis, random plasma glucose results greater than or equal to 200 mg/dL meet the criteria for diagnosis of diabetes.Reference: Standards of Medical Care in Diabetes 2016, [place] [employer]. Diabetes Care. 2016.39(Suppl 1). Performed By: #### 2 4323-8, ####[facility] LABIA [id number] [place] [address] [place] Potassium [Moles/Vol] 4.0 mmol/L Normal 3.7-5.1 [facility] Comment on above: Order Comment: Geraldo marrero Type: BLOOD SPECIMENOrdering Facility: [facility] Address: [address] [place] [address] Performed By: #### 2 4323-8, ####[facility] LABIA [id number] [place] [address] [place] Protein [Mass/Vol] 5.8 g/dL Low 6.3-8.0 [facility] Comment on above: Order Comment: Geraldo marrero Type: BLOOD SPECIMENOrdering Facility: [facility] Address: [address] [id number] Performed By: #### 2 4323-8, ####[facility] LABCLIA [id number] [place] [address] [place] Sodium [Moles/Vol] 141 mmol/L Normal 136-144 [facility] Comment on above: Order Comment: Speci men Type: BLOOD SPECIMENOrdering Facility: [facility] Address: [address] [place] [address] Performed By: #### 2 4323-8, ####[facility] LABCLIA [id number] [place] [address] [place] Urea nitrogen [Mass/Vol] 9 mg/dL Normal 7-21 [facility] Comment on above: Order Comment: Speci men Type: BLOOD SPECIMENOrdering Facility: [facility] Address: [address] [place] [address] Performed By: #### 2 4323-8, ####[facility] LABIA [id number] [place] [address] [place] Magnesium SerPl-mCncon 06-24 Magnesium [Mass/Vol] 1.9 mg/dL Normal 1.7-2.3 [facility] Comment on above: Order Comment: Speci men Type: BLOOD SPECIMENOrdering Facility: [facility] Address: [address] [place] [address] Performed By: #### 2 4323-8, ####[facility] LABCLIA [id number] [place] [address] [place] ANES POSTPROC EVALon 023 ANES POSTPROC EVAL Normal [facility] ANES PRE-OPon 06-23-2022 ANES PRE-OP Normal [facility] CASE MANAGEMon 06-23-2022 CASE MANAGEM Normal [facility] CNDSon 06-23-2022 CNDS Normal [facility] NURSING PROGon 06-23-2022 NURSING PROG Normal [facility] Upper GI endoscopyon 023 Upper GI endoscopy Normal [facility] Basic metabolic 2000 panelon 06-22-2022 Anion gap [Moles/Vol] 12 mmol/L Normal 9-18 [facility] Comment on above: Order Comment: Speci men Type: BLOOD SPECIMENOrdering Facility: [facility] Address: [address] [address] Performed By: #### 1 988-5, 25915-9 ####[facility] LABCLIA [id number] [place] [address] [place] Calcium [Mass/Vol] 9.1 mg/dL Normal 8.5-10.2 [facility] Comment on above: Order Comment: Speci men Type: BLOOD SPECIMENOrdering Facility: [facility] Address: [address] [place] [address] Performed By: #### 1 988-5, 60803-6 ####[facility] LABCLIA [id number] [place] [address] [place] Chloride [Moles/Vol] 106 mmol/L High 97-105 [facility] Comment on above: Order Comment: Speci men Type: BLOOD SPECIMENOrdering Facility: [facility] Address: [address] [place], [place] [address] Performed By: #### 1 988-5, 31585-1 ####[facility] LABCLIA [id number] [place] [address] [place] CO2 [Moles/Vol] 20 mmol/L Low 22-30 [facility] Comment on above: Order Comment: Speci men Type: BLOOD SPECIMENOrdering Facility: [facility] Address: [address] [place] [address] Performed By: #### 1 988-5, 85891-9 ####[facility] LABCLIA [id number] [place] [address] [place] Creatinine [Mass/Vol] 0.87 mg/dL Normal 0.58-0.96 [facility] Comment on above: Order Comment: Geraldo marrero Type: BLOOD SPECIMENOrdering Facility: [facility] Address: [address] [place] [address] Performed By: #### 1 988-5, 42529-5 ####[facility] LABIA [id number] [address] [place] ESTIMATED GLOMERULAR FILTRATION RATE 90 mL/min/1.73m??? Normal >=60 [facility] Comment on above: Order Comment: Geraldo marrero Type: BLOOD SPECIMENOrdering Facility: [facility] Address: [address] [place] [address] Result Comment: Rashmi mated Glomerular Filtration Rate (eGFR) is calculated using the 2020 CKD-EPI creatinine equation. This equation utilizes serum creatinine, sex, and age as parameters. The creatinine assay has traceable calibration to isotope dilution-mass spectrometry. Refer to KDIGO guidelines for clinical interpretation. In patients with unstable renal function, e.g. those with acute kidney injury, the eGFR may not accurately reflect actual GFR. Performed By: #### 1 988-5, 15745-4 ####[facility] LABIA [id number] [place] [address] [place] Glucose [Mass/Vol] 76 mg/dL Normal 74-99 [facility] Comment on above: Order Comment: Geraldo marrero Type: BLOOD SPECIMENOrdering Facility: [facility] Address: [address] [place] [address] Result Comment: The [place] Diabetes [employer] (ADA) provides guidance for cutoff values for fasting glucose and random glucose. The ADA defines fasting as no caloric intake for at least 8 hours. Fasting plasma glucose results between 100 to 125 mg/dL indicate increased risk for diabetes (prediabetes).Fasting plasma glucose results greater than or equal to 126 mg/dL meet the criteria for diagnosis of diabetes. In the absence of unequivocal hyperglycemia, results should be confirmed by repeat testing. In a patient with classic symptoms of hyperglycemia or hyperglycemic crisis, random plasma glucose results greater than or equal to 200 mg/dL meet the criteria for diagnosis of diabetes.Reference: Standards of Medical Care in Diabetes 2016, [place] [employer]. Diabetes Care. 2016.39(Suppl 1). Performed By: #### 1 988-5, 13759-6 ####[facility] LABCLIA [id number] [place] [address] [place] Potassium [Moles/Vol] 3.8 mmol/L Normal 3.7-5.1 [facility] Comment on above: Order Comment: Speci men Type: BLOOD SPECIMENOrdering Facility: [facility] Address: [address] [address] Performed By: #### 1 988-5, 37309-7 ####[facility] LABCLIA [id number] [place] [address] [place] Sodium [Moles/Vol] 138 mmol/L Normal 136-144 [facility] Comment on above: Order Comment: Speci men Type: BLOOD SPECIMENOrdering Facility: [facility] Address: [address] Performed By: #### 1 988-5, 95663-9 ####[facility] LABCLIA [id number] [place] [address] [place] Urea nitrogen [Mass/Vol] 10 mg/dL Normal 7-21 [facility] Comment on above: Order Comment: Speci men Type: BLOOD SPECIMENOrdering Facility: [facility] Address: [address] [place] [address] Performed By: #### 1 988-5, 98220-7 ####[facility] LABCLIA [id number] [place] [address] [place] CBC panel Auto (Bld)on 06-22 Erythrocyte distribution width (RBC) [Ratio] 12.8 % Normal 11.5-15.0 [facility] Comment on above: Order Comment: Speci men Type: BLOOD SPECIMENOrdering Facility: [facility] Address: [address] Performed By: #### 5 8410-2 ####[facility] LABIA [id number] [place] [address] [place] Hematocrit (Bld) [Volume fraction] 38.4 % Normal 36.0-46.0 [facility] Comment on above: Order Comment: Speci men Type: BLOOD SPECIMENOrdering Facility: [facility] Address: [address] Performed By: #### 5 8410-2 ####[facility] LABIA [id number] [address] [place] Hemoglobin (Bld) [Mass/Vol] 13.4 g/dL Normal 11.5-15.5 [facility] Comment on above: Order Comment: Speci men Type: BLOOD SPECIMENOrdering Facility: [facility] Address: [address] [place], [place] [address] Performed By: #### 5 8410-2 ####[facility] LABIA [id number] [place] [address] [place] MCH (RBC) [Entitic mass] 31.2 pg Normal 26.0-34.0 [facility] Comment on above: Order Comment: Speci men Type: BLOOD SPECIMENOrdering Facility: [facility] Address: [address] Performed By: #### 5 8410-2 ####[facility] LABIA [id number] [place] [address] [place] MCHC (RBC) [Mass/Vol] 34.9 g/dL Normal 30.5-36.0 [facility] Comment on above: Order Comment: Speci men Type: BLOOD SPECIMENOrdering Facility: [facility] Address: [address] [place], [place] [phone] Performed By: #### 5 8410-2 ####[facility] LABCLIA [id number] [place] [address] [place] MCV (RBC) [Entitic vol] 89.3 fL Normal 80.0-100.0 [facility] Comment on above: Order Comment: Speci men Type: BLOOD SPECIMENOrdering Facility: [facility] Address: [address] [place] [address] Performed By: #### 5 8410-2 ####[facility] LABIA [id number] [place] [address] [place] Nucleated RBC (Bld) [#/Vol] 10*3/uL Normal <0.01 [facility] Comment on above: Order Comment: Speci men Type: BLOOD SPECIMENOrdering Facility: [facility] Address: [address] Performed By: #### 5 8410-2 ####[facility] LABIA [id number] [place] [address] [place] Platelet mean volume (Bld) [Entitic vol] 11.7 fL Normal 9.0-12.7 [facility] Comment on above: Order Comment: Speci men Type: BLOOD SPECIMENOrdering Facility: [facility] Address: [address] [place] [address] Performed By: #### 5 8410-2 ####[facility] LABIA [id number] [place] [address] [place] Platelets (Bld) [#/Vol] 217 10*3/uL Normal 150-400 [facility] Comment on above: Order Comment: Speci men Type: BLOOD SPECIMENOrdering Facility: [facility] Address: [address] [place] [address] Performed By: #### 5 8410-2 ####[facility] LABCLIA [id number] [place] [address] [place] RBC (Bld) [#/Vol] 4.30 10*6/uL Normal 3.90-5.20 [facility] Comment on above: Order Comment: Speci men Type: BLOOD SPECIMENOrdering Facility: [facility] Address: [address] [place] [address] Performed By: #### 5 8410-2 ####[facility] [facility] LABCLIA [id number] [place] [address] [place] WBC (Bld) [#/Vol] 4.20 10*3/uL Normal 3.70-11.00 [facility] Comment on above: Order Comment: Speci men Type: BLOOD SPECIMENOrdering Facility: [facility] Address: [address] [place] [address] Performed By: #### 5 8410-2 ####[facility] LABCLIA [id number] [place] [address] [place] CRP SerPl-mCncon 06-22-2022 CRP [Mass/Vol] mg/L Normal <0.9 [facility] Comment on above: Order Comment: Speci men Type: BLOOD SPECIMENOrdering Facility: [facility] Address: [address] [place] [address] Performed By: #### 1 988-5, 33876-4 ####[facility] LABCLIA [id number] [place] [address] [place] NURSING PROGon 06-22-2022 NURSING PROG Normal [facility] NUTRITIONon 06-22-2022 NUTRITION Normal [facility] XR ABDOMEN 1V SUPINEon 06-22 XR ABDOMEN 1V SUPINE Normal [facility] Basic metabolic 2000 panelon 06-21-2022 Anion gap [Moles/Vol] 11 mmol/L Normal 9-18 [facility] Comment on above: Order Comment: Speci men Type: BLOOD SPECIMENOrdering Facility: [facility] Address: [address] [place] [address], [place] Performed By: #### 2 4321-2 ####[facility] LABCLIA [id number] [place] [address] [place] Calcium [Mass/Vol] 8.9 mg/dL Normal 8.5-10.2 [facility] Comment on above: Order Comment: Speci men Type: BLOOD SPECIMENOrdering Facility: [facility] Address: [address] Performed By: #### 2 4321-2 ####[facility] LABCLIA [id number] [place] [address] [place] Chloride [Moles/Vol] 107 mmol/L High 97-105 [facility] Comment on above: Order Comment: Speci men Type: BLOOD SPECIMENOrdering Facility: [facility] Address: [address] Performed By: #### 2 4321-2 ####[facility] LABCLIA [id number] [place] [address] [place] CO2 [Moles/Vol] 22 mmol/L Normal 22-30 [facility] Comment on above: Order Comment: Speci men Type: BLOOD SPECIMENOrdering Facility: [facility] Address: [address] Performed By: #### 2 4321-2 ####[facility] LABCLIA [id number] [place] [address] [place] Creatinine [Mass/Vol] 0.93 mg/dL Normal 0.58-0.96 [facility] Comment on above: Order Comment: Speci men Type: BLOOD SPECIMENOrdering Facility: [facility] Address: [address] Performed By: #### 2 4321-2 ####[facility] LABCLIA [id number] [id number] [address] [place] ESTIMATED GLOMERULAR FILTRATION RATE 83 mL/min/1.73m??? Normal >=60 [facility] Comment on above: Order Comment: Geraldo marrero Type: BLOOD SPECIMENOrdering Facility: [facility] Address: [address] [place] [address] Result Comment: Rashmi mated Glomerular Filtration Rate (eGFR) is calculated using the 2020 CKD-EPI creatinine equation. This equation utilizes serum creatinine, sex, and age as parameters. The creatinine assay has traceable calibration to isotope dilution-mass spectrometry. Refer to KDIGO guidelines for clinical interpretation. In patients with unstable renal function, e.g. those with acute kidney injury, the eGFR may not accurately reflect actual GFR. Performed By: #### 2 4321-2 ####[facility] LABCLIA [id number] [place] [address] [place] Glucose [Mass/Vol] 75 mg/dL Normal 74-99 [facility] Comment on above: Order Comment: Geraldo marrero Type: BLOOD SPECIMENOrdering Facility: [facility] Address: [address] [place] [address] Result Comment: The [place] [employer] (ADA) provides guidance for cutoff values for fasting glucose and random glucose. The ADA defines fasting as no caloric intake for at least 8 hours. Fasting plasma glucose results between 100 to 125 mg/dL indicate increased risk for diabetes (prediabetes).Fasting plasma glucose results greater than or equal to 126 mg/dL meet the criteria for diagnosis of diabetes. In the absence of unequivocal hyperglycemia, results should be confirmed by repeat testing. In a patient with classic symptoms of hyperglycemia or hyperglycemic crisis, random plasma glucose results greater than or equal to 200 mg/dL meet the criteria for diagnosis of diabetes.Reference: Standards of Medical Care in Diabetes 2016, [place] [employer]. Diabetes Care. 2016.39(Suppl 1). Performed By: #### 2 4321-2 ####[facility] LABIA [id number] [place] [address] [place] Potassium [Moles/Vol] 3.9 mmol/L Normal 3.7-5.1 [facility] Comment on above: Order Comment: Speci men Type: BLOOD SPECIMENOrdering Facility: [facility] Address: [address] [address] Performed By: #### 2 4321-2 ####[facility] LABIA [id number] [place] [address] [place] Sodium [Moles/Vol] 140 mmol/L Normal 136-144 [facility] Comment on above: Order Comment: Speci men Type: BLOOD SPECIMENOrdering Facility: [facility] Address: [address] [address] Performed By: #### 2 4321-2 ####[facility] LABIA [id number] [place] [address] [place] Urea nitrogen [Mass/Vol] 10 mg/dL Normal 7-21 [facility] Comment on above: Order Comment: Speci men Type: BLOOD SPECIMENOrdering Facility: [facility] Address: [address] [address] Performed By: #### 2 4321-2 ####[facility] LABIA [id number] [place] [address] [place] CBC panel Auto (Bld)on 06-21 Erythrocyte distribution width (RBC) [Ratio] 13.0 % Normal 11.5-15.0 [facility] Comment on above: Order Comment: Speci men Type: BLOOD SPECIMENOrdering Facility: [facility] Address: [address] Performed By: #### 5 8410-2 ####[facility] LABIA [id number] [address] [place] Hematocrit (Bld) [Volume fraction] 37.5 % Normal 36.0-46.0 [facility] Comment on above: Order Comment: Speci men Type: BLOOD SPECIMENOrdering Facility: [facility] Address: [address] [place], [place] [address] Performed By: #### 5 8410-2 ####[facility] LABIA [id number] [place] [address] [place] Hemoglobin (Bld) [Mass/Vol] 12.8 g/dL Normal 11.5-15.5 [facility] Comment on above: Order Comment: Speci men Type: BLOOD SPECIMENOrdering Facility: [facility] Address: [address] [place] [address] Performed By: #### 5 8410-2 ####[facility] [id number] [place] [address] [place] MCH (RBC) [Entitic mass] 31.1 pg Normal 26.0-34.0 [facility] Comment on above: Order Comment: Speci men Type: BLOOD SPECIMENOrdering Facility: [facility] Address: [address] [place] [address] Performed By: #### 5 8410-2 ####[facility] [id number] [address] [place] MCHC (RBC) [Mass/Vol] 34.1 g/dL Normal 30.5-36.0 [facility] Comment on above: Order Comment: Speci men Type: BLOOD SPECIMENOrdering Facility: [facility] Address: [address] [place] [address] Performed By: #### 5 8410-2 ####[facility] [id number] [place] [address] [place] MCV (RBC) [Entitic vol] 91.0 fL Normal 80.0-100.0 [facility] Comment on above: Order Comment: Speci men Type: BLOOD SPECIMENOrdering Facility: [facility] Address: [address] [place] [address] Performed By: #### 5 8410-2 ####[facility] [id number] [address] [id number] [address] [place] Nucleated RBC (Bld) [#/Vol] 10*3/uL Normal <0.01 [facility] Comment on above: Order Comment: Speci men Type: BLOOD SPECIMENOrdering Facility: [facility] Address: [address] [place], [place] [address] Performed By: #### 5 8410-2 ####[facility] LABCLIA [id number] [place] [address] [place] Platelet mean volume (Bld) [Entitic vol] 11.8 fL Normal 9.0-12.7 [facility] Comment on above: Order Comment: Speci men Type: BLOOD SPECIMENOrdering Facility: [facility] Address: [address] [place], [place] [address] Performed By: #### 5 8410-2 ####[facility] LABCLIA [id number] [place] [address] [place] Platelets (Bld) [#/Vol] 212 10*3/uL Normal 150-400 [facility] Comment on above: Order Comment: Speci men Type: BLOOD SPECIMENOrdering Facility: [facility] Address: [address] [place], [place] [address] Performed By: #### 5 8410-2 ####[facility] LABCLIA [id number] [place] [address] [place] RBC (Bld) [#/Vol] 4.12 10*6/uL Normal 3.90-5.20 [facility] Comment on above: Order Comment: Speci men Type: BLOOD SPECIMENOrdering Facility: [facility] Address: [address] [place], [place] [address] Performed By: #### 5 8410-2 ####[facility] LABCLIA [id number] [place] [address] [place] WBC (Bld) [#/Vol] 2.90 10*3/uL Low 3.70-11.00 [facility] Comment on above: Order Comment: Speci men Type: BLOOD SPECIMENOrdering Facility: [facility] Address: [address] [place] [address] Performed By: #### 5 8410-2 ####[facility] LABCLIA [id number] [place] [address] [place] CASE MGT INIT ASSESon 2022 CASE MGT INIT ASSES Normal [facility] CBC W Auto Differential pane l (Bld)on 06-20-2022 Basophils (Bld) [#/Vol] 0.03 10*3/uL Normal <0.11 [facility] Comment on above: Order Comment: Speci men Type: BLOOD SPECIMENOrdering Facility: [facility] Address: [address] [place] [address] Performed By: #### 5 7021-8 ####[facility] LABCLIA [id number] [place] [address] [place] Basophils/100 WBC (Bld) 0.7 % Normal [facility] Comment on above: Order Comment: Speci men Type: BLOOD SPECIMENOrdering Facility: [facility] Address: [address] [place] [address] Performed By: #### 5 7021-8 ####[facility] LABCLIA [id number] [place] [address] [place] Differential cell count method Nom (Bld) Auto Normal [facility] Comment on above: Order Comment: Speci men Type: BLOOD SPECIMENOrdering Facility: [facility] Address: [address] [place] [address] Performed By: #### 5 7021-8 ####[facility] LABCLIA [id number] [place] [address] [place] Eosinophils (Bld) [#/Vol] 0.13 10*3/uL Normal <0.46 [facility] Comment on above: Order Comment: Speci men Type: BLOOD SPECIMENOrdering Facility: [facility] Address: [address] Performed By: #### 5 7021-8 ####[facility] LABCLIA [id number] [place] [address] [place] Eosinophils/100 WBC (Bld) 2.9 % Normal [facility] Comment on above: Order Comment: Speci men Type: BLOOD SPECIMENOrdering Facility: [facility] Address: [address] Performed By: #### 5 7021-8 ####[facility] LABCLIA [id number] [place] [address] [place] Erythrocyte distribution width (RBC) [Ratio] 13.0 % Normal 11.5-15.0 [facility] Comment on above: Order Comment: Speci men Type: BLOOD SPECIMENOrdering Facility: [facility] Address: [address] Performed By: #### 5 7021-8 ####[facility] LABCLIA [id number] [place] [address] [place] Hematocrit (Bld) [Volume fraction] 41.3 % Normal 36.0-46.0 [facility] Comment on above: Order Comment: Speci men Type: BLOOD SPECIMENOrdering Facility: [facility] Address: [address] Performed By: #### 5 7021-8 ####[facility] LABCLIA [id number] [place] [address] [place] Hemoglobin (Bld) [Mass/Vol] 13.8 g/dL Normal 11.5-15.5 [facility] Comment on above: Order Comment: Speci men Type: BLOOD SPECIMENOrdering Facility: [facility] Address: [address] Performed By: #### 5 7021-8 ####[facility] LABCLIA [id number] [place] [address] [place] Immature granulocytes (Bld) [#/Vol] 10*3/uL Normal <0.10 [facility] Comment on above: Order Comment: Speci men Type: BLOOD SPECIMENOrdering Facility: [facility] Address: [address] [place] [address] Performed By: #### 5 7021-8 ####[facility] LABCLIA [id number] [address] [place] Immature granulocytes/100 WBC (Bld) 0.0 % Normal [facility] Comment on above: Order Comment: Speci men Type: BLOOD SPECIMENOrdering Facility: [facility] Address: [address] [place] [address] Performed By: #### 5 7021-8 ####[facility] LABIA [id number] [place] [address] [place] Lymphocytes (Bld) [#/Vol] 1.62 10*3/uL Normal 1.00-4.00 [facility] Comment on above: Order Comment: Speci men Type: BLOOD SPECIMENOrdering Facility: [facility] Address: [address] [place], [place] [address] Performed By: #### 5 7021-8 ####[facility] LABCLIA [id number] [place] [address] [place] Lymphocytes/100 WBC (Bld) 36.5 % Normal [facility] Comment on above: Order Comment: Speci men Type: BLOOD SPECIMENOrdering Facility: [facility] Address: [address] [place], [place] [address] Performed By: #### 5 7021-8 ####[facility] LABCLIA [id number] [place] [address] [place] MCH (RBC) [Entitic mass] 30.8 pg Normal 26.0-34.0 [facility] Comment on above: Order Comment: Speci men Type: BLOOD SPECIMENOrdering Facility: [facility] Address: [address] Performed By: #### 5 7021-8 ####[facility] LABCLIA [id number] [place] [address] [place] MCHC (RBC) [Mass/Vol] 33.4 g/dL Normal 30.5-36.0 [facility] Comment on above: Order Comment: Speci men Type: BLOOD SPECIMENOrdering Facility: [facility] Address: [address] Performed By: #### 5 7021-8 ####[facility] LABIA [id number] [place] [address] [place] MCV (RBC) [Entitic vol] 92.2 fL Normal 80.0-100.0 [facility] Comment on above: Order Comment: Speci men Type: BLOOD SPECIMENOrdering Facility: [facility] Address: [address] Performed By: #### 5 7021-8 ####[facility] LABIA [id number] [place] [address] [place] Monocytes (Bld) [#/Vol] 0.29 10*3/uL Normal <0.87 [facility] Comment on above: Order Comment: Speci men Type: BLOOD SPECIMENOrdering Facility: [facility] Address: [address] Performed By: #### 5 7021-8 ####[facility] LABCLIA [id number] [address] [place] Monocytes/100 WBC (Bld) 6.5 % Normal [facility] Comment on above: Order Comment: Speci men Type: BLOOD SPECIMENOrdering Facility: [facility] Address: [address] Performed By: #### 5 7021-8 ####[facility] LABCLIA [id number] [place] [address] [place] Neutrophils (Bld) [#/Vol] 2.37 10*3/uL Normal 1.45-7.50 [facility] Comment on above: Order Comment: Speci men Type: BLOOD SPECIMENOrdering Facility: [facility] Address: [address] [place] [address] Performed By: #### 5 7021-8 ####[facility] LABCLIA [id number] [place] [address] [place] Neutrophils/100 WBC (Bld) 53.4 % Normal [facility] Comment on above: Order Comment: Speci men Type: BLOOD SPECIMENOrdering Facility: [facility] Address: [address] [place] [address] Performed By: #### 5 7021-8 ####[facility] LABCLIA [id number] [place] [address] [place] Nucleated RBC (Bld) [#/Vol] 10*3/uL Normal <0.01 [facility] Comment on above: Order Comment: Speci men Type: BLOOD SPECIMENOrdering Facility: [facility] Address: [address] [place] [address] Performed By: #### 5 7021-8 ####[facility] LABCLIA [id number] [place] [address] [place] Nucleated RBC/100 WBC (Bld) [Ratio] 0.0 /100 WBC Normal [facility] Comment on above: Order Comment: Speci men Type: BLOOD SPECIMENOrdering Facility: [facility] Address: [address] [place] [address] Performed By: #### 5 7021-8 ####[facility] LABCLIA [id number] [place] [address] [place] Platelet mean volume (Bld) [Entitic vol] 11.4 fL Normal 9.0-12.7 [facility] Comment on above: Order Comment: Speci men Type: BLOOD SPECIMENOrdering Facility: [facility] Address: [address] [place] [phone] Performed By: #### 5 7021-8 ####[facility] LABCLIA [id number] [place] [address] [place] Platelets (Bld) [#/Vol] 252 10*3/uL Normal 150-400 [facility] Comment on above: Order Comment: Speci men Type: BLOOD SPECIMENOrdering Facility: [facility] Address: [address] [place], [place] [address] Performed By: #### 5 7021-8 ####[facility] LABCLIA [id number] [place] [address] [place] RBC (Bld) [#/Vol] 4.48 10*6/uL Normal 3.90-5.20 [facility] Comment on above: Order Comment: Speci men Type: BLOOD SPECIMENOrdering Facility: [facility] Address: [address] [place], [place] [address] Performed By: #### 5 7021-8 ####[facility] LABCLIA [id number] [place] [address] [place] WBC (Bld) [#/Vol] 4.44 10*3/uL Normal 3.70-11.00 [facility] Comment on above: Order Comment: Speci men Type: BLOOD SPECIMENOrdering Facility: [facility] Address: [address] [place] [phone] Performed By: #### 5 7021-8 ####[facility] LABCLIA [id number] [place] [address] [place] CRP SerPl-mCncon 06-20-2022 CRP [Mass/Vol] mg/L Normal <0.9 [facility] Comment on above: Order Comment: Speci men Type: BLOOD SPECIMENOrdering Facility: [facility] Address: [address] [place] [address] Performed By: #### 3 3959-8, 66544-1, 23789-7, 3039-04, 1987-06 ####[facility] LABCLIA [id number] [place] [address] [place] ABD/PEL W IVCONon 023 CT ABD/PEL W IVCON Normal [facility] Comprehensive metabolic 2000 panelon 06-20-2022 Albumin [Mass/Vol] 4.5 g/dL Normal 3.9-4.9 [facility] Comment on above: Order Comment: Speci men Type: BLOOD SPECIMENOrdering Facility: [facility] Address: [address] [place] [address] Performed By: #### 3 3959-8, 55890-0, 95187-6, 3039-04, 1987-06 ####[facility] LABCLIA [id number] [place] [address] [place] ALP [Catalytic activity/Vol] 72 U/L Normal 34-123 [facility] Comment on above: Order Comment: Speci men Type: BLOOD SPECIMENOrdering Facility: [facility] Address: [address] [place] [address] Performed By: #### 3 3959-8, 92926-3, 15787-9, 3039-04, 1987-06 ####[facility] LABCLIA [id number] [place] [address] [place] ALT [Catalytic activity/Vol] 25 U/L Normal 7-38 [facility] Comment on above: Order Comment: Speci men Type: BLOOD SPECIMENOrdering Facility: [facility] Address: [address] [place] [address] Performed By: #### 3 3959-8, 74135-5, 25885-9, 3039-04, 1987-06 ####[facility] LABCLIA [id number] [place] [address] [place] Anion gap [Moles/Vol] 11 mmol/L Normal 9-18 [facility] Comment on above: Order Comment: Speci men Type: BLOOD SPECIMENOrdering Facility: [facility] Address: [address] [place] [address] Performed By: #### 3 3959-8, 93114-2, 90103-6, 3, 1987-06 ####[facility] LABCLIA [id number] [place] [address] [place] AST [Catalytic activity/Vol] 38 U/L High 13-35 [facility] Comment on above: Order Comment: Speci men Type: BLOOD SPECIMENOrdering Facility: [facility] Address: [address] [place] [address] Performed By: #### 3 3959-8, 15819-7, 10346-0, 3039-04, 1987-06 ####[facility] LABIA [id number] [place] [address] [place] Bilirubin [Mass/Vol] 0.4 mg/dL Normal 0.2-1.3 [facility] Comment on above: Order Comment: Speci men Type: BLOOD SPECIMENOrdering Facility: [facility] Address: [address] [place] [address] Performed By: #### 3 3959-8, 11043-2, 52226-8, 3, 1987-06 ####[facility] LABIA [id number] [place] [id number] [place] Calcium [Mass/Vol] 9.2 mg/dL Normal 8.5-10.2 [facility] Comment on above: Order Comment: Speci men Type: BLOOD SPECIMENOrdering Facility: [facility] Address: [address] [place] [address] Performed By: #### 3 3959-8, 96666-8, 84194-8, 3, 1987-06 ####[facility] LABCLIA [id number] [place] [id number] [place] Chloride [Moles/Vol] 107 mmol/L High 97-105 [facility] Comment on above: Order Comment: Speci men Type: BLOOD SPECIMENOrdering Facility: [facility] Address: [address] [place] [address] Performed By: #### 3 3959-8, 19054-5, 97098-2, 3, 1987-06 ####[facility] LABIA [id number] [place] [address] [place] CO2 [Moles/Vol] 21 mmol/L Low 22-30 [facility] Comment on above: Order Comment: Speci men Type: BLOOD SPECIMENOrdering Facility: [facility] Address: [address] [place] [address] Performed By: #### 3 3959-8, 23142-1, 83131-1, 3039-04, 1987-06 ####[facility] LABIA [id number] [place] [address] [place] Creatinine [Mass/Vol] 0.83 mg/dL Normal 0.58-0.96 [facility] Comment on above: Order Comment: Speci men Type: BLOOD SPECIMENOrdering Facility: [facility] Address: [address] [place], [place] [address] Performed By: #### 3 3959-8, 02239-2, 83558-9, 3039-04, 1987-06 ####[facility] LABIA [id number] [place] [id number] [place] ESTIMATED GLOMERULAR FILTRATION RATE 96 mL/min/1.73m??? Normal >=60 [facility] Comment on above: Order Comment: Speci men Type: BLOOD SPECIMENOrdering Facility: [facility] Address: [address] [place] [address] Result Comment: Rashmi mated Glomerular Filtration Rate (eGFR) is calculated using the 2020 CKD-EPI creatinine equation. This equation utilizes serum creatinine, sex, and age as parameters. The creatinine assay has traceable calibration to isotope dilution-mass spectrometry. Refer to KDIGO guidelines for clinical interpretation. In patients with unstable renal function, e.g. those with acute kidney injury, the eGFR may not accurately reflect actual GFR. Performed By: #### 3 3959-8, 08743-3, 85979-5, 3039-04, 1987-06 ####[facility] LABCLIA [id number] [address] [address] [place] Glucose [Mass/Vol] 81 mg/dL Normal 74-99 [facility] Comment on above: Order Comment: Geraldo marrero Type: BLOOD SPECIMENOrdering Facility: [facility] Address: [address] Result Comment: The [place] [employer] (ADA) provides guidance for cutoff values for fasting glucose and random glucose. The ADA defines fasting as no caloric intake for at least 8 hours. Fasting plasma glucose results between 100 to 125 mg/dL indicate increased risk for diabetes (prediabetes).Fasting plasma glucose results greater than or equal to 126 mg/dL meet the criteria for diagnosis of diabetes. In the absence of unequivocal hyperglycemia, results should be confirmed by repeat testing. In a patient with classic symptoms of hyperglycemia or hyperglycemic crisis, random plasma glucose results greater than or equal to 200 mg/dL meet the criteria for diagnosis of diabetes.Reference: Standards of Medical Care in Diabetes 2016, [place] [employer]. Diabetes Care. 2016.39(Suppl 1). Performed By: #### 3 3959-8, 91028-9, 12028-1, 3039-04, 1987-06 ####[facility] LABIA [id number] [address] [address] [place] Potassium [Moles/Vol] 3.7 mmol/L Normal 3.7-5.1 [facility] Comment on above: Order Comment: Specmichael marrero Type: BLOOD SPECIMENOrdering Facility: [facility] Address: [address] [place] [address] Performed By: #### 3 3959-8, 34411-8, 47129-9, 3039-3, 1987-06 ####[facility] LABCLIA [id number] [place] [id number] [place] Protein [Mass/Vol] 7.3 g/dL Normal 6.3-8.0 [facility] Comment on above: Order Comment: Speci men Type: BLOOD SPECIMENOrdering Facility: [facility] Address: [address] [place], [place] [address] Performed By: #### 3 3959-8, 71340-7, 49906-0, 3039-3, 1987-06 ####[facility] LABCLIA [id number] [place] [address] [place] Sodium [Moles/Vol] 139 mmol/L Normal 136-144 [facility] Comment on above: Order Comment: Speci men Type: BLOOD SPECIMENOrdering Facility: [facility] Address: [address] [place] [address] Performed By: #### 3 3959-8, 31665-8, 18679-4, 3, 1987-06 ####[facility] LABCLIA [id number] [place] [address] [place] Urea nitrogen [Mass/Vol] 10 mg/dL Normal 7-21 [facility] Comment on above: Order Comment: Speci men Type: BLOOD SPECIMENOrdering Facility: [facility] Address: [address] [place] [phone] Performed By: #### 3 3959-8, 71524-6, 21603-3, 3039-3, 1987-06 ####[facility] LABCLIA [id number] [place] [id number] [place] ED PROV NOTEon 06-20-2022 ED PROV NOTE Normal [facility] HISTORY PHYSICALon HISTORY PHYSICAL Normal [facility] Lipase SerPl-cCncon 06-21-19 Lipase [Catalytic activity/Vol] 52 U/L Normal 16-61 [facility] Comment on above: Order Comment: Speci men Type: BLOOD SPECIMENOrdering Facility: [facility] Address: [address] [place] [address] Performed By: #### 3 3959-8, 95779-8, 90916-4, 3039-3, 1987-06 ####[facility] LABCLIA [id number] [place] [address] [place] Magnesium SerPl-mCncon 06-20 Magnesium [Mass/Vol] 2.1 mg/dL Normal 1.7-2.3 [facility] Comment on above: Order Comment: Speci men Type: BLOOD SPECIMENOrdering Facility: [facility] Address: [address] [place] [address] Performed By: #### 3 3959-8, 63437-3, 93146-5, 3039-04, 1987-06 ####[facility] LABCLIA [id number] [address] [place] Procalcitonin SerPl-mCncon 0 06-20-2022 Procalcitonin [Mass/Vol] ng/mL Normal <0.09 [facility] Comment on above: Order Comment: Speci men Type: BLOOD SPECIMENOrdering Facility: [facility] Address: [address] [place] [address] Result Comment: For a guided interpretation of test results, please visit the Change in Procalcitonin Calculator, [email or web address]. Performed By: #### 3 3959-8, 54108-7, 75010-5, 3, 1987-06 ####[facility] LABCLIA [id number] [place] [address] [place] Urinalysis complete panel (U )on 06-20-2022 Bacteria LM.HPF (Urine sed) [#/Area] Rare Abnormal None Seen [facility] Comment on above: Order Comment: Speci men Type: URINE SPECIMENOrdering Facility: [facility] Address: [address] [place] [address] Performed By: #### 2 4356-8 ####[facility] LABCLIA [id number] [place] [address] [place] Bilirubin Ql (U) Negative Normal Negative [facility] Comment on above: Order Comment: Speci men Type: URINE SPECIMENOrdering Facility: [facility] Address: [address] [place] [address] Performed By: #### 2 4356-8 ####[facility] LABCLIA [id number] [place] [address] [place] Clarity (Unsp spec) Clear Normal Clear [facility] Comment on above: Order Comment: Speci men Type: URINE SPECIMENOrdering Facility: [facility] Address: [address] [place], [place] [address] Performed By: #### 2 4356-8 ####[facility] LABCLIA [id number] [place] [address] [place] Color (U) Light Yellow Normal Yellow [facility] Comment on above: Order Comment: Speci men Type: URINE SPECIMENOrdering Facility: [facility] Address: [address] Performed By: #### 2 4356-8 ####[facility] LABCLIA [id number] [place] [address] [place] Epithelial cells LM.HPF (Urine sed) [#/Area] Few Normal [facility] Comment on above: Order Comment: Speci men Type: URINE SPECIMENOrdering Facility: [facility] Address: [address] Performed By: #### 2 4356-8 ####[facility] LABCLIA [id number] [place] [address] [place] Glucose Test strip (U) [Mass/Vol] Negative Normal Trace, Negative [facility] Comment on above: Order Comment: Speci men Type: URINE SPECIMENOrdering Facility: [facility] Address: [address] Performed By: #### 2 4356-8 ####[facility] LABCLIA [id number] [place] [address] [place] Hemoglobin Ql (U) Negative Normal Negative, Trace [facility] Comment on above: Order Comment: Speci men Type: URINE SPECIMENOrdering Facility: [facility] Address: [address] [place] [address] Performed By: #### 2 4356-8 ####[facility] LABCLIA [id number] [place] [address] [place] Ketones Ql (U) Negative Normal Trace, Negative [facility] Comment on above: Order Comment: Speci men Type: URINE SPECIMENOrdering Facility: [facility] Address: [address] Performed By: #### 2 4356-8 ####[facility] LABCLIA [id number] [place] [address] [place] Leukocyte esterase Test strip Ql (U) Negative Normal Negative, 25 Patito/uL [facility] Comment on above: Order Comment: Speci men Type: URINE SPECIMENOrdering Facility: [facility] Address: [address] Performed By: #### 2 4356-8 ####[facility] LABCLIA [id number] [place] [address] [place] Nitrite Ql (U) Negative Normal Negative [facility] Comment on above: Order Comment: Speci men Type: URINE SPECIMENOrdering Facility: [facility] Address: [address] Performed By: #### 2 4356-8 ####[facility] LABCLIA [id number] [place] [address] [place] pH (U) 8.0 [pH] Normal 5.0-8.0 [facility] Comment on above: Order Comment: Speci men Type: URINE SPECIMENOrdering Facility: [facility] Address: [address] [place] [address] Performed By: #### 2 4356-8 ####[facility] LABIA [id number] [place] [address] [place] Protein (U) [Mass/Vol] Negative Normal Trace, Negative [facility] Comment on above: Order Comment: Speci men Type: URINE SPECIMENOrdering Facility: [facility] Address: [address] [place] [address] Performed By: #### 2 4356-8 ####[facility] LABIA [id number] [place] [address] [place] RBC LM.HPF (Urine sed) [#/Area] 0-3 /HPF Normal 0-3 /HPF [facility] Comment on above: Order Comment: Speci men Type: URINE SPECIMENOrdering Facility: [facility] Address: [address] [place] [address] Performed By: #### 2 4356-8 ####[facility] LABIA [id number] [place] [address] [place] Specific gravity (U) [Rel density] 1.011 Normal 1.005-1.030 [facility] Comment on above: Order Comment: Speci men Type: URINE SPECIMENOrdering Facility: [facility] Address: [address] [place] [address] Performed By: #### 2 4356-8 ####[facility] LABIA [id number] [place] [address] [place] Urobilinogen Ql (U) Negative Normal Negative [facility] Comment on above: Order Comment: Speci men Type: URINE SPECIMENOrdering Facility: [facility] Address: [address] [place] [address] Performed By: #### 2 4356-8 ####[facility] LABCLIA [id number] [place] [address] [place] WBC LM.HPF (Urine sed) [#/Area] 0-5 /HPF Normal 0-5 /HPF [facility] Comment on above: Order Comment: Speci men Type: URINE SPECIMENOrdering Facility: [facility] Address: [address] [place] [address] Performed By: #### 2 4356-8 ####[facility] LABCLIA [id number] [address] [place] Ambulatory Visit Summaryon 0 06-17-2022 Ambulatory Visit Summary ABBEY GARCIA :1990 Visit Date:06/17/2022 Ambulatory Visit Instructions Your Diagnosis Diverticulitis Right kidney stone Shingles of eyelid BMI 29.0-29.9,adult Your Care Team Attending Physician - Jaquan Paula Primary Care Physician - Jaquan Paula This Is Your Medications List Misc Prescription ( minipill Birthcontrol) acetaminophen-codeine (acetaminophen-codeine 300 mg-15 mg oral tablet) acetaminophen-oxycodon e (acetaminophen-oxycodo ne 325 mg-5 mg Tab) acyclovir (acyclovir 400 mg Tab) ciprofloxacin (ciprofloxacin 500 mg Tab) dicyclomine (Bentyl 10 mg Cap) doxycycline (doxycycline hyclate 100 mg Cap) duloxetine (Cymbalta) escitalopram (Lexapro 10 mg Tab) escitalopram (Lexapro 5 mg oral tablet) gabapentin (gabapentin 300 mg Cap) iron polysaccharide (ProFe) levothyroxine levothyroxine (levothyroxine 125 mcg (0.125 mg) Tab) liothyronine (liothyronine 5 mcg Tab) meclizine (Antivert 12.5 mg Tab) metformin metronidazole (MetroNIDAZOLE 500 mg Tab) mirtazapine (mirtazapine 15 mg Tab) mirtazapine (mirtazapine 15 mg Tab) multivitamin (Multi Vitamins oral tablet) ondansetron (Zofran ODT 4 mg Tab) ondansetron (ondansetron 4 mg Dis Tab) pantoprazole (Protonix 40 mg Tab-DR) promethazine (promethazine 12.5 mg oral tablet) promethazine (promethazine 25 mg Tab) promethazine (promethazine 25 mg Tab) sertraline sucralfate (Carafate Tab) tamsulosin (Flomax 0.4 mg Cap) Procedures Performed Revision (01/29/2022), Gastric sleeve (02/15/2021), Esophagogastroduodenos copy (01/20/2021), Hysterectomy (11/04/2020). Discharge Vitals Heart Rate (Peripheral) 70 Respiratory Rate 18 Blood Pressure 138/88 Height 168 cm Height 66 in Weight 83.1 kg Weight 182.82 lb BMI 29.44 What to do next Scheduled Follow-Up Appointments Wednesday. 2022 2:00 PM EDT With: Where: [facility] Wednesday 11:00 AM EDT With: Where: [facility] Wednesday 1:00 PM EDT With: Guero JOHNSON, Raulito Galvan Where: [facility] Medications What How Much When Why Instructions New acyclovir (acyclovir 400 mg Tab) 1 Tablets By Mouth 2 times a day Duration: 14 Days Pickup at [facility]/pharmacy #6177 New ciprofloxacin (ciprofloxacin 500 mg Tab) 1 Tablets By Mouth Every 12 hours Duration: 10 Days Pickup at [facility]/pharmacy #6177 New metronidazole (MetroNIDAZOLE 500 mg Tab) 1 Tablets By Mouth Every 8 hours Duration: 10 Days Pickup at [facility]/pharmacy #6177 New tamsulosin (Flomax 0.4 mg Cap) 1 Capsules By Mouth Every day Pickup at [facility]/pharmacy #6177 Unchanged acetaminophen-codeine (acetaminophen-codeine 300 mg-15 mg oral tablet) 1 Tablets By Mouth 2 times a day Right shoulder pain Unchanged acetaminophen-oxycodon e (acetaminophen-oxycodo ne 325 mg-5 mg Tab) 1 Tablets By Mouth Every 4 hours as needed for for pain Unchanged dicyclomine (Bentyl 10 mg Cap) 2 Capsules By Mouth 4 times a day Unchanged doxycycline (doxycycline hyclate 100 mg Cap) 1 Capsules By Mouth 2 times a day Positive Lyme disease serology Unchanged duloxetine (Cymbalta) 60 Milligram By Mouth 2 times a day Unchanged escitalopram (Lexapro 10 mg Tab) 1 Tablets By Mouth Every day Unchanged escitalopram (Lexapro 5 mg oral tablet) 1 Tablets By Mouth Every day Unchanged gabapentin (gabapentin 300 mg Cap) See instructions Neuropathy 1 cap(s) Oral daily x 1 day, 1 tab BID x 1 day, then 1 tab TID thereafter. Unchanged iron polysaccharide (ProFe) 180 Milligram By Mouth Every day Unchanged levothyroxine 75 Microgram By Mouth Every day Unchanged levothyroxine (levothyroxine 125 mcg (0.125 mg) Tab) 1 Tablets By Mouth Every day Unchanged liothyronine (liothyronine 5 mcg Tab) 5 Microgram By Mouth Every day Unchanged meclizine (Antivert 12.5 mg Tab) 1 Tablets By Mouth 3 times a day as needed for for dizziness BMI 29.0-29.9,adult Unchanged metformin 1,000 Milligram By Mouth 2 times a day Unchanged mirtazapine (mirtazapine 15 mg Tab) 1 Tablets By Mouth Once a day (at bedtime) Unchanged mirtazapine (mirtazapine 15 mg Tab) Unchanged Misc Prescription ( minipill Birthcontrol) 0 Every day Unchanged multivitamin (Multi Vitamins oral tablet) 1 Tablets By Mouth Every day Unchanged ondansetron (ondansetron 4 mg Dis Tab) 1 Tablets By Mouth Every 6 hours Unchanged ondansetron (Zofran ODT 4 mg Tab) 1 Tablets By Mouth 3 times a day Unchanged pantoprazole (Protonix 40 mg Tab-DR) 1 Tablets By Mouth 2 times a day Unchanged promethazine (promethazine 12.5 mg oral tablet) 1 Tablets By Mouth Every 4 hours Unchanged promethazine (promethazine 25 mg Tab) 1 Tablets By Mouth Every 6 hours as needed for as needed for nausea/vomiting Unchanged promethazine (promethazine 25 mg Tab) 1 Tablets By Mouth Every 6 hours as needed for as needed for nausea/vomiting Unchanged sertraline 100 Milligram By Mouth Every day Unchanged sucralfate (Carafate Tab) 1 Tab (more content not included)... Normal Salvador [facility] [place] 06-17-2022 Consent [id number] Normal Salvador [facility] Medicine Office/Clini c Noteon 06-17-2022 Family Medicine Office/Clinic Note Chief Complaint CC for stones on 06/16 --- Pt was seen in the ER with a couple kidney stones in the right kidney. Pt was told she is having a flare of divierticulosis. Pt is experiencing a shingles fair up on the right side of her face, right chest and arm. Denies visiual History of Present Illness pt presents today for ER follow up from [facility] Review of Systems PHQ Score Initial Depression Screen Score: 0 ROS - Provider Constitutional: no fever, no chills, no sweats, no fatigue Respiratory: no shortness of breath, no cough, no orthopnea, no wheezing. Cardiovascular: no chest pain, no palpitations, no edema. Neurologic: no headache, no dizziness, no numbness, no weakness. : right upper quadrant and back pain GI: left lower quadrant pain, which is worse than the right sided pain skin: shingles rash starting on right eye Physical Exam Vitals & Measurements HR: 70(Peripheral) RR: 18 BP: 138/88 SpO2: 99% HT: 66 in HT: 168 cm WT: 83.1 kg WT: 182.82 lb BMI: 29.44 General: alert, no acute distress ENMT: oral mucosa moist, no pharyngeal erythema or exudate Cardiovascular: regular rate and rhythm, normal peripheral perfusion Respiratory: Lungs CTA, respirations non labored Extremities: no deformity, no trauma Neurological: oriented x 4, LOC appropriate for age, CN II-XII intact, motor strength equal & normal bilaterally, speech normal skin: right eye red and swollen on lid and below eye and one area on right side of face Assessment/Plan 1. Diverticulitis (K57.92: Diverticulitis of intestine, part unspecified, without perforation or abscess without bleeding) pt was seen at [facility] yesterday with c/o left lower quadrant pain. as well as right upper quadrant and right back pain. Was diagnosed with diverticulitis and 2 right kidney stones. She also woke up with shingles flare up of right eye and face. Pt is trying to get schedule with GI doctor at [facility] that did her gastric bypass sleeve. Ordered: ketorolac, 30 mg = 1 mL, Injection, IntraMuscular, Once, Stop date 06/17/22 11:38:00 EDT, Routine, Start date 06/17/22 11:38:00 EDT, 06/17/22 11:38:00 EDT 2. Right kidney stone (N20.0: Calculus of kidney) has 2 kidney stones <3mm. will start flomax and pt to strain urine. if she is able to pass them, we will send them to lab. toradol 30mg IM given in office today. Ordered: ketorolac, 30 mg = 1 mL, Injection, IntraMuscular, Once, Stop date 06/17/22 11:38:00 EDT, Routine, Start date 06/17/22 11:38:00 EDT, 06/17/22 11:38:00 EDT 3. Shingles of eyelid (B02.39: Other herpes zoster eye disease) acyclovir sent to pharmacy Ordered: ketorolac, 30 mg = 1 mL, Injection, IntraMuscular, Once, Stop date 06/17/22 11:38:00 EDT, Routine, Start date 06/17/22 11:38:00 EDT, 06/17/22 11:38:00 EDT 4. BMI 29.0-29.9,adult (Z68.29: Body mass index [BMI] 29.0-29.9, adult) BMI education complete Orders: acyclovir, 400 mg = 1 tab(s), Oral, BID, X 14 day(s), # 28 tab(s), Refills(s) 0, Pharmacy: [facility]/pharmacy #[id number], 168, cm, 06/17/22 10:54:00 EDT, Height/Length Dosing, 83.1, kg, 06/17/22 10:54:00 EDT, Weight Dosing ciprofloxacin, 500 mg = 1 tab(s), Oral, q12hr, X 10 day(s), # 20 tab(s), Refills(s) 0, Pharmacy: [facility]/pharmacy #[id number], 168, cm, 06/17/22 10:54:00 EDT, Height/Length Dosing, 83.1, kg, 06/17/22 10:54:00 EDT, Weight Dosing metronidazole, 500 mg = 1 tab(s), Oral, q8hr, X 10 day(s), # 30 tab(s), Refills(s) 0, Pharmacy: [facility]/pharmacy #[id number], 168, cm, 06/17/22 10:54:00 EDT, Height/Length Dosing, 83.1, kg, 06/17/22 10:54:00 EDT, Weight Dosing tamsulosin, 0.4 mg = 1 cap(s), Oral, Daily, # 10 cap(s), Refills(s) 0, Pharmacy: [facility]/pharmacy #[id number], 168, cm, 06/17/22 10:54:00 EDT, Height/Length Dosing, 83.1, kg, 06/17/22 10:54:00 EDT, Weight Dosing Follow-up No qualifying data available Problem List/Past Medical History Ongoing BMI 30.0-30.9,adult LUQ pain Nausea Historical Allergic rhinitis Anemia Hypothyroidism Metabolic syndrome PCOS- polycystic ovary syndrome Procedure/Surgical History Revision (01/29/2022), Gastric sleeve (02/15/2021), Esophagogastroduodenos copy (01/20/2021), Hysterectomy (11/04/2020). Medications minipill Birthcontrol, 0, Daily, Not taking acetaminophen-codeine 300 mg-15 mg oral tablet, 1 tab(s), Oral, BID, Not taking acetaminophen-oxycodon e 325 mg-5 mg Tab, 1 tab(s), Oral, q4hr, PRN, Not taking acyclovir 400 mg Tab, 400 mg= 1 tab(s), Oral, BID Antivert 12.5 mg Tab, 12.5 mg= 1 tab(s), Oral, TID, PRN Bentyl 10 mg Cap, 20 mg= 2 cap(s), Oral, QID, Not taking Carafate Tab, 1 gm= 1 tab(s), Oral, QID, Not taking ciprofloxacin 500 mg Tab, 500 mg= 1 tab(s), Oral, q12hr Cymbalta, 60 mg, Oral, BID, Not taking doxycycline hyclate 100 mg Cap, 100 mg= 1 cap(s), Oral, BID, Not taking Flomax 0.4 mg Cap, 0.4 mg= 1 cap(s), Oral, Daily gabapentin 300 mg Cap, See Instructions, Not taking levothyroxine, 75 mcg, Oral, Daily, Not taking levothyroxine 125 mcg (0.125 mg) Tab, 125 m (more content not included)... Normal [facility] Comment on above: Result Comment: Elec tronically Signed By: Jaquan Paula\.br\Date and Time Signed: 06/17/22 12:55 EDT Provider Letteron 06-17-2022 Provider Letter June 17, 2022 ABBEY GARCIA [id number] [address] ABBEY GARCIA 1990 To Whom It May Concern, Please excuse above patient from work. Date of Illness: Please excuse Abbey from work half day 06-16-22 and all day 06-17-22, due to medical, if you have any questions please contact my office. From: _ To: _ May Return to Work On: Restrictions: _ Comments: _ Sincerely, [place] [address] [facility] CBC W Auto Differential pane l (Bld)on 06-16-2022 Basophils (Bld) [#/Vol] 0.05 10*3/uL Normal <0.11 [facility] Comment on above: Order Comment: Speci men Type: BLOOD SPECIMENOrdering Facility: [facility] Address: [address] [address] Performed By: #### 5 7021-8 ####[facility] LABORATORYCLIA [id number] [place] [address] [place] Basophils/100 WBC (Bld) 1.0 % Normal [facility] Comment on above: Order Comment: Speci men Type: BLOOD SPECIMENOrdering Facility: [facility] Address: [address] [address] Performed By: #### 5 7021-8 ####[facility] LABORATORYCLIA [id number] [place] [address] [place] Differential cell count method Nom (Bld) Auto Normal [facility] Comment on above: Order Comment: Speci men Type: BLOOD SPECIMENOrdering Facility: [facility] Address: [address] [address] Performed By: #### 5 7021-8 ####[facility] LABORATORYCLIA [id number] [place] [address] [place] Eosinophils (Bld) [#/Vol] 0.08 10*3/uL Normal <0.46 [facility] Comment on above: Order Comment: Speci men Type: BLOOD SPECIMENOrdering Facility: [facility] Address: [address] [address] Performed By: #### 5 7021-8 ####[facility] LABORATORYIA [id number] [place] [address] [place] Eosinophils/100 WBC (Bld) 1.6 % Normal [facility] Comment on above: Order Comment: Speci men Type: BLOOD SPECIMENOrdering Facility: [facility] Address: [address] [address] Performed By: #### 5 7021-8 ####[facility] LABORATORYIA [id number] [place] [address] [place] Erythrocyte distribution width (RBC) [Ratio] 12.9 % Normal 11.5-15.0 [facility] Comment on above: Order Comment: Speci men Type: BLOOD SPECIMENOrdering Facility: [facility] Address: [address] [address] Performed By: #### 5 7021-8 ####[facility] LABORATORYIA [id number] [place] [address] [place] Hematocrit (Bld) [Volume fraction] 38.3 % Normal 36.0-46.0 [facility] Comment on above: Order Comment: Speci men Type: BLOOD SPECIMENOrdering Facility: [facility] Address: [address] [address] Performed By: #### 5 7021-8 ####[facility] LABORATORYCLIA [id number] [facility] [place] [address] [place] Hemoglobin (Bld) [Mass/Vol] 12.9 g/dL Normal 11.5-15.5 [facility] Comment on above: Order Comment: Speci men Type: BLOOD SPECIMENOrdering Facility: [facility] Address: [address] [address] Performed By: #### 5 7021-8 ####[facility] LABORATORYCLIA [id number] [facility] [place] [address] [place] Immature granulocytes (Bld) [#/Vol] 10*3/uL Normal <0.10 [facility] Comment on above: Order Comment: Speci men Type: BLOOD SPECIMENOrdering Facility: [facility] Address: [address] [place] [address] Performed By: #### 5 7021-8 ####[facility] CENTERIA [id number] [facility] [place] [address] [place] Immature granulocytes/100 WBC (Bld) 0.2 % Normal [facility] Comment on above: Order Comment: Speci men Type: BLOOD SPECIMENOrdering Facility: [facility] Address: [address] [place] [address] Performed By: #### 5 7021-8 ####[facility] LABORATORYIA [id number] [place] [address] [place] Lymphocytes (Bld) [#/Vol] 2.12 10*3/uL Normal 1.00-4.00 [facility] Comment on above: Order Comment: Speci men Type: BLOOD SPECIMENOrdering Facility: [facility] Address: [address] [place] [address] Performed By: #### 5 7021-8 ####[facility] LABORATORYIA [id number] [address] [address] [place] Lymphocytes/100 WBC (Bld) 43.6 % Normal [facility] Comment on above: Order Comment: Speci men Type: BLOOD SPECIMENOrdering Facility: [facility] Address: [address] [address] Performed By: #### 5 7021-8 ####[facility] CENTERIA [id number] [address] STATES OF [facility] MCH (RBC) [Entitic mass] 30.9 pg Normal 26.0-34.0 [facility] Comment on above: Order Comment: Speci men Type: BLOOD SPECIMENOrdering Facility: [facility] Address: [address] [address] Performed By: #### 5 7021-8 ####[facility] CENTERIA [id number] [address] [place] MCHC (RBC) [Mass/Vol] 33.7 g/dL Normal 30.5-36.0 [facility] Comment on above: Order Comment: Speci men Type: BLOOD SPECIMENOrdering Facility: [facility] Address: [address] [address] Performed By: #### 5 7021-8 ####[facility] [id number] [address] [place] MCV (RBC) [Entitic vol] 91.8 fL Normal 80.0-100.0 [facility] Comment on above: Order Comment: Speci men Type: BLOOD SPECIMENOrdering Facility: [facility] Address: [address] [address] Performed By: #### 5 7021-8 ####[facility] [id number] [address] [place] Monocytes (Bld) [#/Vol] 0.27 10*3/uL Normal <0.87 [facility] Comment on above: Order Comment: Speci men Type: BLOOD SPECIMENOrdering Facility: [facility] Address: [address] [address] Performed By: #### 5 7021-8 ####[facility] CENTERIA [id number] [address] [place] Monocytes/100 WBC (Bld) 5.6 % Normal [facility] Comment on above: Order Comment: Speci men Type: BLOOD SPECIMENOrdering Facility: [facility] Address: [address] [address] Performed By: #### 5 7021-8 ####[facility] LABORATORYCLIA [id number] [place] [address] [place] Neutrophils (Bld) [#/Vol] 2.33 10*3/uL Normal 1.45-7.50 [facility] Comment on above: Order Comment: Speci men Type: BLOOD SPECIMENOrdering Facility: [facility] Address: [address] [address] Performed By: #### 5 7021-8 ####[facility] LABORATORYCLIA [id number] [place] [address] [place] Neutrophils/100 WBC (Bld) 48.0 % Normal [facility] Comment on above: Order Comment: Speci men Type: BLOOD SPECIMENOrdering Facility: [facility] Address: [address] Performed By: #### 5 7021-8 ####[facility] LABORATORYIA [id number] [address] [id number] [place] Nucleated RBC (Bld) [#/Vol] 10*3/uL Normal <0.01 [facility] Comment on above: Order Comment: Speci men Type: BLOOD SPECIMENOrdering Facility: [facility] Address: [address] Performed By: #### 5 7021-8 ####[facility] LABORATORYCLIA [id number] [place] [address] [place] Nucleated RBC/100 WBC (Bld) [Ratio] 0.0 /100 WBC Normal [facility] Comment on above: Order Comment: Speci men Type: BLOOD SPECIMENOrdering Facility: [facility] Address: [address] Performed By: #### 5 7021-8 ####[facility] LABORATORYIA [id number] [place] [address] [place] Platelet mean volume (Bld) [Entitic vol] 11.3 fL Normal 9.0-12.7 [facility] Comment on above: Order Comment: Speci men Type: BLOOD SPECIMENOrdering Facility: [facility] Address: [address] [address] Performed By: #### 5 7021-8 ####[facility]ENTERIA [id number] [address] [place] Platelets (Bld) [#/Vol] 256 10*3/uL Normal 150-400 [facility] Comment on above: Order Comment: Speci men Type: BLOOD SPECIMENOrdering Facility: [facility] Address: [address] [place] [address] Performed By: #### 5 7021-8 ####[facility] [id number] [place] [address] [place] RBC (Bld) [#/Vol] 4.17 10*6/uL Normal 3.90-5.20 [facility] Comment on above: Order Comment: Speci men Type: BLOOD SPECIMENOrdering Facility: [facility] Address: [address] [place] [address] Performed By: #### 5 7021-8 ####[facility] [id number] [address] [id number] [place] WBC (Bld) [#/Vol] 4.86 10*3/uL Normal 3.70-11.00 [facility] Comment on above: Order Comment: Speci men Type: BLOOD SPECIMENOrdering Facility: [facility] Address: [address] [place] [address] Performed By: #### 5 7021-8 ####[facility] [id number] [place] [id number] [facility] [place] CT ABD/PEL WO IVCONon 2022 CT ABD/PEL WO IVCON * * *Final Report* * * DATE OF EXAM: Jun 16 2022 2:50PM [facility] 0531 - CT ABD/PEL WO IVCON / PROCEDURE REASON: Flank pain, kidney stone suspected * * * * Physician Interpretation * * * * EXAMINATION: CT ABDOMEN AND PELVIS WITHOUT IV CONTRAST CLINICAL HISTORY: Flank pain. Possible renal stone. TECHNIQUE: Non-IV contrast imaging of the abdomen and pelvis was performed using standard technique, scanning from just above the dome of the diaphragm to the symphysis pubis. Unenhanced imaging is limited for the evaluation of some intra-abdominal and pelvic pathology. MQ: CTAPWO_3 Contrast: IV: None : ml of CT Radiation dose: Integrated Dose-length product (DLP) for this visit = 676 mGy*cm. CT Dose Reduction Employed: Automated exposure control(AEC) and iterative recon COMPARISON: CT imaging dated 8 04/04/2020, and 02/02/2020 RESULT: Abdomen / Pelvis: Liver: Multiple hepatic cysts and too small to characterize hepatic hypodense lesions appear stable. Biliary: S/p cholecystectomy. Spleen: No splenomegaly. Pancreas: Unremarkable. Adrenals: No mass. Kidneys: Punctate RIGHT lower pole calculus (2:48). 3 mm RIGHT lateral lower pole cortical hyperdense lesion, likely hyperdense cyst. No LEFT renal calculus or hydronephrosis. GI Tract: Postsurgical changes related to gastric bypass surgery. No bowel dilation. Appendix is surgically absent. There is diverticulosis. No changes of diverticulitis. Lymph Nodes: No lymphadenopathy. Mesentery/peritoneum: No ascites. Retroperitoneum: No mass. Vasculature: No abdominal aortic or iliac artery aneurysm. Pelvis: No mass or ascites. Bones/Soft Tissues: No acute abnormality. Lower thorax: Unremarkable. Crop Scout (topogram) images: No additional findings. IMPRESSION: 2 mm RIGHT lower pole renal calculus. No right-sided hydronephrosis. No LEFT renal calculus or hydronephrosis. Tiny RIGHT renal cortical hyperdense cyst. No other acute process or significant interval change from CT imaging on 02/01/2021. Special Investigator: JUANCARLOS Transcribe Date/Time: Jun 16 2022 3:22P Dictated by : AUDREY WINSLOW MD This examination was interpreted and the report reviewed and electronically signed by: AUDREY WINSLOW MD on Jun 16 2022 3:39PM EST [id number] Normal [facility] Comprehensive metabolic 2000 panelon 06-16-2022 Albumin [Mass/Vol] 4.1 g/dL Normal 3.9-4.9 [facility] Comment on above: Order Comment: Speci men Type: BLOOD SPECIMENOrdering Facility: [facility] Address: [address] [place] [address] Performed By: #### 2 4323-8, ####[facility] LABORATORYCLIA [id number] [place] [address] [place] ALP [Catalytic activity/Vol] 65 U/L Normal 34-123 [facility] Comment on above: Order Comment: Speci men Type: BLOOD SPECIMENOrdering Facility: [facility] Address: [address] [place] [address] Performed By: #### 2 4323-8, ####[facility] LABORATORYCLIA [id number] [place] [address] [place] ALT [Catalytic activity/Vol] 20 U/L Normal 7-38 [facility] Comment on above: Order Comment: Speci men Type: BLOOD SPECIMENOrdering Facility: [facility] Address: [address] [place] [address] Performed By: #### 2 4323-8, ####[facility] LABORATORYCLIA [id number] [place] [address] [place] Anion gap [Moles/Vol] 10 mmol/L Normal 9-18 [facility] Comment on above: Order Comment: Speci men Type: BLOOD SPECIMENOrdering Facility: [facility] Address: [address] [address] Performed By: #### 2 4323-8, ####[facility] LABORATORYCLIA [id number] [place] [address] [place] AST [Catalytic activity/Vol] 34 U/L Normal 13-35 [facility] Comment on above: Order Comment: Speci men Type: BLOOD SPECIMENOrdering Facility: [facility] Address: [address] Performed By: #### 2 43204-22, ####[facility] LABORATORYIA [id number] [place] [address] [place] Bilirubin [Mass/Vol] 0.4 mg/dL Normal 0.2-1.3 [facility] Comment on above: Order Comment: Speci men Type: BLOOD SPECIMENOrdering Facility: [facility] Address: [address] [address] Performed By: #### 2 4322-09, ####[facility] CENTERIA [id number] [place] [address] [place] Calcium [Mass/Vol] 9.0 mg/dL Normal 8.5-10.2 [facility] Comment on above: Order Comment: Speci men Type: BLOOD SPECIMENOrdering Facility: [facility] Address: [address] [place] [address] Performed By: #### 2 43204-22, ####[facility] CENTERIA [id number] [place] [address] [place] Chloride [Moles/Vol] 108 mmol/L High 97-105 [facility] Comment on above: Order Comment: Speci men Type: BLOOD SPECIMENOrdering Facility: [facility] Address: [address] [address] Performed By: #### 2 43204-22, ####[facility] LABORATORYCLIA [id number] [place] [address] [place] CO2 [Moles/Vol] 20 mmol/L Low 22-30 [facility] ital Comment on above: Order Comment: Speci men Type: BLOOD SPECIMENOrdering Facility: [facility] Address: [address] [address] Performed By: #### 2 4328, ####[facility] LABORATORYCLIA [id number] [place] [address] [place] Creatinine [Mass/Vol] 0.73 mg/dL Normal 0.58-0.96 [facility] Comment on above: Order Comment: Geraldo marrero Type: BLOOD SPECIMENOrdering Facility: [facility] Address: [address] [id number] Performed By: #### 2 4323-8, ####[facility] LABORATORYCLIA [id number] [place] [address] [place] ESTIMATED GLOMERULAR FILTRATION RATE 112 mL/min/1.73m??? Normal >=60 [facility] Comment on above: Order Comment: Geraldo marrero Type: BLOOD SPECIMENOrdering Facility: [facility] Address: [address] Result Comment: Rashmi mated Glomerular Filtration Rate (eGFR) is calculated using the 2020 CKD-EPI creatinine equation. This equation utilizes serum creatinine, sex, and age as parameters. The creatinine assay has traceable calibration to isotope dilution-mass spectrometry. Refer to KDIGO guidelines for clinical interpretation. In patients with unstable renal function, e.g. those with acute kidney injury, the eGFR may not accurately reflect actual GFR. Performed By: #### 2 4323-8, ####[facility] LABORATORYCLIA [id number] [place] [id number] [place] Glucose [Mass/Vol] 82 mg/dL Normal 74-99 [facility] Comment on above: Order Comment: Geraldo marrero Type: BLOOD SPECIMENOrdering Facility: [facility] Address: [address] [place], [place] [address] Result Comment: The [place] Diabetes Association (ADA) provides guidance for cutoff values for fasting glucose and random glucose. The ADA defines fasting as no caloric intake for at least 8 hours. Fasting plasma glucose results between 100 to 125 mg/dL indicate increased risk for diabetes (prediabetes). Fasting plasma glucose results greater than or equal to 126 mg/dL meet the criteria for diagnosis of diabetes. In the absence of unequivocal hyperglycemia, results should be confirmed by repeat testing. In a patient with classic symptoms of hyperglycemia or hyperglycemic crisis, random plasma glucose results greater than or equal to 200 mg/dL meet the criteria for diagnosis of diabetes. Reference: Standards of Medical Care in Diabetes 2016, [place] Diabetes Association. Diabetes Care. 2016.39(Suppl 1). Performed By: #### 2 432-8, ####[facility] CENTERIA [id number] [place] [address] [place] Potassium [Moles/Vol] 3.9 mmol/L Normal 3.7-5.1 [facility] Comment on above: Order Comment: Speci men Type: BLOOD SPECIMENOrdering Facility: [facility] Address: [address] Performed By: #### 2 43204-22, ####[facility] CENTERIA [id number] [place] [address] [place] Protein [Mass/Vol] 6.5 g/dL Normal 6.3-8.0 [facility] Comment on above: Order Comment: Speci men Type: BLOOD SPECIMENOrdering Facility: [facility] Address: [address] Performed By: #### 2 4322-09, ####[facility] [id number] [place] [address] [place] Sodium [Moles/Vol] 138 mmol/L Normal 136-144 [facility] Comment on above: Order Comment: Speci men Type: BLOOD SPECIMENOrdering Facility: [facility] Address: [address] Performed By: #### 2 4322-09, ####[facility]ENTERIA [id number] [place] [address] [place] Urea nitrogen [Mass/Vol] 8 mg/dL Normal 7-21 [facility] Comment on above: Order Comment: Speci men Type: BLOOD SPECIMENOrdering Facility: [facility] Address: [address] Performed By: #### 2 4322-09, ####[facility] LABORATORYCLIA [id number] [place] [address] [facility] ECG COMPLETEon 06-16-2022 ECG COMPLETE Ventricular Rate : 5 8 BPM Atrial Rate : 58 BPM P-R Interval : 150 ms QRS Duration : 86 ms Q-T Interval : 420 ms QTC Calculation(Bazett) : 412 ms Calculated P [place] : 66 degrees Calculated R [place] : 81 degrees Calculated T [place] : 47 degrees Sinus bradycardia Otherwise normal ECG no STEMI 1607 Confirmed by MD GONZALEZ MICHAEL ([id number]), scientific publications editor JAMI RIBEIRO ([id number]) on 06/17/2022 8:43:27 AM NAME : ABBEY GARCIA PID : [id number] : 1990 Gender : Female Race : ORD : [id number] Procedure Date : Jun 16 2022 16:06:10 Edit Date : Jun 17 2022 08:43:30 Diagnosis: Sinus bradycardia Otherwise normal ECG no STEMI 1607 Confirmed by MD GONZALEZ MICHAEL ([id number]), scientific publications editor JAMI RIBEIRO ([id number]) on 06/17/2022 8:43:27 AM Test Reason : Chest Pain Location : 302 : ED ED Overread By : MD GONZALEZ MICHAEL Edited By : JAMI RIBEIRO Referred By : , Acquired by : [id number], [facility] ED NOTEon 06-16-2022 ED NOTE HNO ID: [id number] Author: Juan Carter RN Service: ? Author Type: Registered Nurse Type: ED Notes Filed: 06/16/2022 5:14 PM Note Text: Pt provided with discharged instructions. Medications gone over and all questions answered. Pt. Left with steady gait with for a ride. [facility] ED PROV NOTEon 06-16-2022 ED PROV NOTE HNO ID: [id number] Author: Corie Gonzalez MD Service: Emergency Medicine Author Type: Physician Type: ED Provider Notes Filed: 06/16/2022 7:28 PM Note Text: ED Provider Note Patient Name: Abbey Garcia : 1990 SERVICE DATE: 06/16/22 History Patient presents with: Flank Pain: Started in L side progressed into both sides x1 week. Pt has hx of kidney stones. Reports discomfort with urination. Nausea AND Vomiting HPI This is a 32-year-old female with past medical history that includes kidney stones who presents to the ED with bilateral flank pain, worse on the left. She states her symptoms have been ongoing for 1 week. She reports dysuria but no hematuria. She states that her left flank is more painful than her right. She states that the pain goes down into her left lower abdomen. She reports nausea and nonbloody vomiting. She has a history of a hysterectomy. She reports regular bowel movements without blood. PAST MEDICAL HISTORY Diagnosis Date Anemia Takes Pro FE daily. Arthritis Asthma Class 1 obesity without serious comorbidity with body mass index (BMI) of 33.0 to 33.9 in adult 09/25/2019 Gastric ulcer 2013 GERD (gastroesophageal reflux disease) History of IBS Hypertension Hypothyroid RICHAR on CPAP wears mask every night PCOS (polycystic ovarian syndrome) PONV (postoperative nausea and vomiting) 01/29/2022 Ventral hernia without obstruction or gangrene PAST SURGICAL HISTORY Procedure Laterality Date APPENDECTOMY 08/2019 CHOLECYSTECTOMY COLONOSCOPY GEN ANES EGD F TOTAL ABDOMINAL HYSTERECTOMY PAST SURGICAL HISTORY OF Bilateral arthroscopic knee surgery- was catcher in [employer] PAST SURGICAL HISTORY OF 08/2020 gastric sleeve PICC LINE INSERT/CONSULT 12/24/2020 VAGINAL DELIVERY AFTER DELIVERY Three C-sections FAMILY HISTORY Problem Relation Age of Onset Diabetes Mother Hypertension Mother Obesity Mother Hypertension Father Hypertension Brother Obesity Brother Hypertension Brother Obesity Brother Social History Tobacco Use Smoking status: Never Smokeless tobacco: Never Substance and Sexual Activity Alcohol use: Not Currently Drug use: Never Comment: denies tx for drug/alcohol abuse in the past. Sexual activity: Yes Partners: Male Comment: Nexplanon impact ALLERGIES Allergen Reactions Adhesive Tape-Silic* Intolerance Sensitive to certain adhesive tapes. Redness and itchy. Codeine GI Upset Nsaids (Non-Steroid* Contraindication-Medic al Surgical S/p RYGB Review of Systems Constitutional: Negative for chills, diaphoresis and fever. HENT: Negative for congestion, rhinorrhea and sore throat. Eyes: Negative for photophobia and visual disturbance. Respiratory: Negative for cough and shortness of breath. Cardiovascular: Negative for chest pain, palpitations and leg swelling. Gastrointestinal: Positive for nausea and vomiting. Negative for abdominal pain and diarrhea. Genitourinary: Positive for dysuria and flank pain. Negative for hematuria. Musculoskeletal: Negative for back pain, neck pain and neck stiffness. Skin: Negative for rash and wound. Neurological: Negative for dizziness, weakness, light-headedness and headaches. Psychiatric/Behavioral : Negative for behavioral problems and confusion. Physical Exam Vitals BP Pulse Temp Temp src Resp SpO2 Weight Height 06/16/22 1249 06/16/22 1249 06/16/22 1249 06/16/22 1249 06/16/22 1249 06/16/22 1249 06/16/22 1249 -- 133/72 68 36.5 ?C (97.7 ?F) Oral 20 100 % 82.6 kg (182 lb) Physical Exam Vitals and nursing note reviewed. Constitutional: General: She is not in acute distress. Appearance: She is not ill-appearing, toxic-appearing or diaphoretic. HENT: Head: Normocephalic and atraumatic. Eyes: Extraocular Movements: Extraocular movements intact. Conjunctiva/sclera: Conjunctivae normal. Cardiovascular: Rate and Rhythm: Normal rate and regular rhythm. Pulses: Normal pulses. Pulmonary: Effort: Pulmonary effort is normal. No respiratory distress. Breath sounds: Normal breath sounds. Abdominal: General: There is no distension. Palpations: Abdomen is soft. Tenderness: There is abdominal tenderness in the left lower quadrant. There is left CVA tenderness. There is no right CVA tenderness. Musculoskeletal: General: No deformity. Normal range of motion. Cervical back: Normal range of motion and neck supple. Skin: General: Skin is warm and dry. Findings: No rash. Neurological: General: No focal deficit present. Mental Status: She is alert and oriented to person, place, and time. Psychiatric: Behavior: Behavior normal. Thought Content: Thought content normal. Diagnostic Testing ED Labs Ordered and Reviewed COMP METABOLIC PANEL - Abnormal; Notable for the following components: Result Value Ref Range Chloride 108 (*) 97 - 105 mmol/L CO2 20 (*) 22 - 30 mmol/L All other components w (more content not included)... Normal [facility] Magnesium SerPl-mCncon 06-16 Magnesium [Mass/Vol] 2.0 mg/dL Normal 1.7-2.3 [facility] Comment on above: Order Comment: Speci men Type: BLOOD SPECIMENOrdering Facility: [facility] Address: [address] [address] Performed By: #### 2 4323-8, 91820-0 ####[facility] [id number] [place] [address] [place] Urinalysis complete panel (U )on 06-16-2022 Bilirubin Ql (U) Negative Normal Negative [facility] Comment on above: Order Comment: Speci men Type: URINE SPECIMENOrdering Facility: [facility] Address: [address] [place] [address] Performed By: #### 2 4356-8 ####[facility] [id number] [place] [address] [place] Clarity (Unsp spec) Clear Normal Clear [facility] Comment on above: Order Comment: Speci men Type: URINE SPECIMENOrdering Facility: [facility] Address: [address] [place] [address] Performed By: #### 2 4356-8 ####[facility] [id number] [place] [address] [place] Color (U) Colorless Normal yellow [facility] Comment on above: Order Comment: Speci men Type: URINE SPECIMENOrdering Facility: [facility] Address: [address] [place] [address] Performed By: #### 2 4356-8 ####[facility] [id number] [place] [id number] [place] Epithelial cells LM.HPF (Urine sed) [#/Area] Few Normal [facility] Comment on above: Order Comment: Speci men Type: URINE SPECIMENOrdering Facility: [facility] Address: [address] [place] [address] Performed By: #### 2 4356-8 ####[facility] [id number] [place] [address] [place] Glucose Test strip (U) [Mass/Vol] Negative Normal Trace, Negative [facility] Comment on above: Order Comment: Speci men Type: URINE SPECIMENOrdering Facility: [facility] Address: [address] [address] Performed By: #### 2 4356-8 ####[facility] [id number] [place] [address] [place] Hemoglobin Ql (U) Negative Normal Negative, Trace [facility] Comment on above: Order Comment: Speci men Type: URINE SPECIMENOrdering Facility: [facility] Address: [address] [address] Performed By: #### 2 4356-8 ####[facility] [id number] [place] [address] [place] Ketones Ql (U) Negative Normal Negative, Trace [facility] Comment on above: Order Comment: Speci men Type: URINE SPECIMENOrdering Facility: [facility] Address: [address] [address] Performed By: #### 2 4356-8 ####[facility] [id number] [place] [address] [place] Leukocyte esterase Test strip Ql (U) Negative Normal Negative, 25 Patito/uL [facility] Comment on above: Order Comment: Speci men Type: URINE SPECIMENOrdering Facility: [facility] Address: [address] [address] Performed By: #### 2 4356-8 ####[facility] [id number] [place] [address] [place] Nitrite Ql (U) Negative Normal Negative [facility] Comment on above: Order Comment: Speci men Type: URINE SPECIMENOrdering Facility: [facility] Address: [address] [place] [address] Performed By: #### 2 4356-8 ####[facility] LABORATORYIA [id number] [place] [address] [place] pH (U) 7.5 [pH] Normal 5.0-8.0 [facility] Comment on above: Order Comment: Speci men Type: URINE SPECIMENOrdering Facility: [facility] Address: [address] [place] [address] Performed By: #### 2 4356-8 ####[facility] [id number] [place] [address] [place] Protein (U) [Mass/Vol] Negative Normal Trace, Negative [facility] Comment on above: Order Comment: Speci men Type: URINE SPECIMENOrdering Facility: [facility] Address: [address] [place] [address] Performed By: #### 2 4356-8 ####[facility] [id number] [place] [address] [place] RBC LM.HPF (Urine sed) [#/Area] 0-3 /HPF Normal 0-3 /HPF [facility] Comment on above: Order Comment: Speci men Type: URINE SPECIMENOrdering Facility: [facility] Address: [address] [place] [address] Performed By: #### 2 4356-8 ####[facility] [id number] [place] [address] [place] Specific gravity (U) [Rel density] 1.009 Normal 1.005-1.030 [facility] Comment on above: Order Comment: Speci men Type: URINE SPECIMENOrdering Facility: [facility] Address: [address] [place] [address] Performed By: #### 2 4356-8 ####[facility] [id number] [place] [address] [place] Urobilinogen Ql (U) Normal Normal Negative [facility] Comment on above: Order Comment: Speci men Type: URINE SPECIMENOrdering Facility: [facility] Address: [address] [place] [address] Performed By: #### 2 4356-8 ####[facility] [id number] [place] [id number] [place] WBC LM.HPF (Urine sed) [#/Area] 0-5 /HPF Normal 0-5 /HPF [facility] Comment on above: Order Comment: Speci men Type: URINE SPECIMENOrdering Facility: [facility] Address: [address] [place] [address] Performed By: #### 2 4356-8 ####[facility] LABORATORYCLIA [id number] [address] [place] [address] [place] [facility] ED Note-Physicianon 06-14-19 ED Note-Physician Basic Information Time Seen: Ashutosh Albright M.D. 06/10/2022 12:34 Chief Complaint patient c/o Chest pain, lightheadedness and nausea that started yesterday morning. states she had syncopal episode yesteray afternoon (lowered into chair). dx lymes disease two weeks ago- finished ATBX 3 days ago History of Present Illness Patient is a 36-year-old female presents the ED with complaint of chest pain, lightheadedness, nausea as well as a syncopal episode. Patient reports that yesterday afternoon she began to feel lightheaded while at work and that she had a syncopal episode at which time she reports that she lost consciousness but she was able to lower herself into a chair and did not fall. Patient reports that after she woke from this she was not postictal, this was witnessed, no reports in any activity which looked like seizure activity. Patient reports that since that time she has felt alternately lightheaded and nauseous. Patient reports that this morning her symptoms became worse and she also began to have a sensation of chest tightness. Patient does report that after her syncopal episode yesterday she did present to the emergency room at [facility]. At that time, patient was also having a left-sided flank pain, patient was worked up including a CT scan of her abdomen pelvis and ultrasound with negative findings as well as negative findings on labs. Patient reports that she discussed these findings with her PCP this morning as well as her chest pain. Due to the fact the patient chest pain was new, PCP suggest the patient present to the ED. Patient has a recent history of multiple presentations to the ED, including a presentation for left-sided pelvic pain 3 days ago at which time I saw patient and performed work-up including pelvic ultrasound. Patient reports that pain is mostly moved to her left flank at this time. Patient was also seen at beginning of this month for a syncopal episode. Patient does report that she was diagnosed with Lyme disease about a month ago, and just recently finished a course of antibiotics. Review of Systems Full 10 system ROS performed. Pt denies symptoms except as noted above in the HPI. Physical Exam Vitals & Measurements T: 36.5 ?C(Oral) HR: 65(Monitored) RR: 16 BP: 122/74 BP: 132/80(Sitting) BP: 135/111(Standing) BP: 130/86(Supine) SpO2: 100% HT: 168 cm WT: 83.65 kg BMI: 29.64 VITALS: I have reviewed the triage vital signs. GENERAL: Well developed, well appearing adult in no acute distress. NEURO: Alert and oriented. Moves all extremities. Face is symmetric and expressive. EYES: PERRL. No scleral icterus or conjunctival injection. No discharge. HENT: Normocephalic, atraumatic. Hearing is grossly intact. Nares grossly patent and without discharge. Mucous membranes moist. NECK: No JVD. Patient moves neck without restriction. CARDIO: Rhythm regular. Normal rate. No murmur, rub, or gallop. Pulses equal bilaterally in the upper and lower extremity. No lower extremity edema. PULM: Lungs clear to auscultation in all mera. No wheezes, rales, or rhonchi. No conversational dyspnea. No splinting, stridor, or accessory muscle use. GI/: Abdomen is soft and non-tender. Normoactive bowel sounds. EXTREMITIES: Symmetric muscle bulk. No joint swelling. No clubbing, cyanosis, or deformity. SKIN: Warm and dry. Normal turgor. No rash or lesions appreciated. PSYCH: Mood, affect, and interaction is appropriate to the setting. Medical Decision Making MEDICAL DECISION MAKING Number and Complexity of Problems Differential Diagnosis: [] [facility] Data External documents reviewed: Reports from patient visit to [facility] yesterday reviewed as uploaded by patient PCP, showing negative work-up after syncopal episode yesterday My EKG interpretation: No STEMI normal QTc My CT interpretation: [] My X-ray interpretation: No acute radiographic abnormalities on chest x-ray My Ultrasound interpretation: [] Decision rules/scores evaluated: Patient with a heart score of 1 indicating low risk of major adverse cardiac event Heart Score for Major Cardiac Event History: Example factors for history - pattern of chest pain, onset, duration, relation with exercise, stress or cold, localization, concominant symptoms. reaction to sublingual nitrates, [] Highly suspicious +2 [] Moderately suspicious +1 [x] Slightly suspicious 0 EKG: [] Significant ST-Depression +2 [] Non specific repolarization disturbance +1 [x] Normal 0 Age: [] >= 65 +2 [] 45-65 + 1 [x] <45 0 Risk Factors: (HLD, HTN, DM, Cigarette Smoking, Pos Family Hx, Obesity) [] >3 risk factors or hx of atheroslerotic disease + 2 [x] 1-2 risk factors + 1 o(besity) [] No risk factors known 0 Troponin: [] >= 3X normal + 2 [] 1-3X normal + 1 [x] <= Normal 0 Discussed with: Patient discussed with casting tester on-call who reviewed patient labs as well as EKG. Dr. Jack suggested that patient be appropriate for event monitor as we (more content not included)... Normal [facility] Comment on above: Result Comment: Elec tronically Signed By: Rui Joyner PA-C\.br\Date and Time Signed: 06/10/22 19:40 EDT\.br\Electronically Co-Signed By: Ashutosh Albright M.D.\.br\Date and Time Co-Signed: 06/13/22 19:02 EDT MISAEL BY IFA WITH REFLEXon Nuclear Ab IF (S) [Titer] Negative Normal Negative [facility] Comment on above: Order Comment: Speci men Type: BLOOD SPECIMENOrdering Facility: [facility] Address: [address] [phone] Result Comment: Anti -nuclear antibody test is used as an aid in diagnosis of systemic autoimmune diseases. Where positive and clinically warranted, follow-up using disease-specific testing is recommended. Low positive titers are not uncommon with advanced age, certain chronic infections, and malignancies among others.Test methodology: Indirect fluorescence immunoassay (IFA) using HEp-2 cells. Performed By: #### A NAIFR ####[facility] LABCLIA [id number] [place] [address] [place] B. burgdorferi IgG and IgM p jhoan (S)on 06-12-2022 B. burgdorferi IgG+IgM Qn (S) Negative Normal Negative [facility] Comment on above: Order Comment: Speci men Type: BLOOD SPECIMENOrdering Facility: [facility] Address: [address] [place] [address] Result Comment: Rece nt infection with B. burgdorferi sensu lato cannot be excluded if the specimen collected within four weeks after the onset of signs and symptoms or within six weeks after a known tick exposure. Clinical and epidemiological correlation is required. Performed By: #### 3 4942-3 ####[facility] [id number] [place] [address] [place] C3 COMPLEMENT BLDon 06-13-19 23 Complement C3 [Mass/Vol] 140 mg/dL 86 - 166 mg/dL [facility] C3 SerPl-mCncon 06-12-2022 Complement C3 [Mass/Vol] 140 mg/dL Normal 86-166 [facility] Comment on above: Order Comment: Speci men Type: BLOOD SPECIMENOrdering Facility: [facility] Address: [address] [place] [address] Performed By: #### 4 498-2, 79677-6, 02483-3, 4485-9 ####[facility] [id number] [place] [address] [place] C4 COMPLEMENT BLDon 06-13-19 23 Complement C4 [Mass/Vol] 25 mg/dL 13 - 46 mg/dL [facility] C4 SerPl-mCncon 06-12-2022 Complement C4 [Mass/Vol] 25 mg/dL Normal 13-46 [facility] Comment on above: Order Comment: Speci men Type: BLOOD SPECIMENOrdering Facility: [facility] Address: [address] [place] [address] Performed By: #### 4 498-2, 95390-6, 76640-0, 1915-9 ####[facility] LABCLIA [id number] [place] [address] [place] CBC W Auto Differential pane l (Bld)on 06-12-2022 Basophils (Bld) [#/Vol] 0.04 10*3/uL Normal <0.11 [facility] Comment on above: Order Comment: Speci men Type: BLOOD SPECIMENOrdering Facility: [facility] Address: [address] [place] [address] Performed By: #### 5 7021-8 ####[facility] LABCLIA [id number] [place] [address] [place] Basophils/100 WBC (Bld) 0.9 % Normal [facility] Comment on above: Order Comment: Speci men Type: BLOOD SPECIMENOrdering Facility: [facility] Address: [address] [place] [address] Performed By: #### 5 7021-8 ####[facility] LABIA [id number] [place] [address] [place] Differential cell count method Nom (Bld) Auto Normal [facility] Comment on above: Order Comment: Speci men Type: BLOOD SPECIMENOrdering Facility: [facility] Address: [address] [place] [address] Performed By: #### 5 7021-8 ####[facility] LABCLIA [id number] [place] [address] [place] Eosinophils (Bld) [#/Vol] 0.09 10*3/uL Normal <0.46 [facility] Comment on above: Order Comment: Speci men Type: BLOOD SPECIMENOrdering Facility: [facility] Address: [address] [place], [place] [address] Performed By: #### 5 7021-8 ####[facility] LABCLIA [id number] [place] [address] [place] Eosinophils/100 WBC (Bld) 2.0 % Normal [facility] Comment on above: Order Comment: Speci men Type: BLOOD SPECIMENOrdering Facility: [facility] Address: [address] Performed By: #### 5 7021-8 ####[facility] LABIA [id number] [place] [address] [place] Erythrocyte distribution width (RBC) [Ratio] 12.8 % Normal 11.5-15.0 [facility] Comment on above: Order Comment: Speci men Type: BLOOD SPECIMENOrdering Facility: [facility] Address: [address] [address] Performed By: #### 5 7021-8 ####[facility] LABIA [id number] [place] [address] [place] Hematocrit (Bld) [Volume fraction] 40.5 % Normal 36.0-46.0 [facility] Comment on above: Order Comment: Speci men Type: BLOOD SPECIMENOrdering Facility: [facility] Address: [address] [place], [place] [address] Performed By: #### 5 7021-8 ####[facility] LABIA [id number] [place] [address] [place] Hemoglobin (Bld) [Mass/Vol] 13.4 g/dL Normal 11.5-15.5 [facility] Comment on above: Order Comment: Speci men Type: BLOOD SPECIMENOrdering Facility: [facility] Address: [address] Performed By: #### 5 7021-8 ####[facility] LABIA [id number] [place] [address] [place] Immature granulocytes (Bld) [#/Vol] 10*3/uL Normal <0.10 [facility] Comment on above: Order Comment: Speci men Type: BLOOD SPECIMENOrdering Facility: [facility] Address: [address] [phone] Performed By: #### 5 7021-8 ####[facility] LABCLIA [id number] [place] [address] [place] Immature granulocytes/100 WBC (Bld) 0.2 % Normal [facility] Comment on above: Order Comment: Speci men Type: BLOOD SPECIMENOrdering Facility: [facility] Address: [address] [place], [place] [address] Performed By: #### 5 7021-8 ####[facility] LABCLIA [id number] [place] [address] [place] Lymphocytes (Bld) [#/Vol] 1.73 10*3/uL Normal 1.00-4.00 [facility] Comment on above: Order Comment: Speci men Type: BLOOD SPECIMENOrdering Facility: [facility] Address: [address] [place], [place] [address] Performed By: #### 5 7021-8 ####[facility] LABCLIA [id number] [place] [address] [place] Lymphocytes/100 WBC (Bld) 37.9 % Normal [facility] Comment on above: Order Comment: Speci men Type: BLOOD SPECIMENOrdering Facility: [facility] Address: [address] [place], [place] [address] Performed By: #### 5 7021-8 ####[facility] LABCLIA [id number] [place] [address] [place] MCH (RBC) [Entitic mass] 30.0 pg Normal 26.0-34.0 [facility] Comment on above: Order Comment: Speci men Type: BLOOD SPECIMENOrdering Facility: [facility] Address: [address] [place], [place] [address] Performed By: #### 5 7021-8 ####[facility] LABCLIA [id number] [place] [address] [place] MCHC (RBC) [Mass/Vol] 33.1 g/dL Normal 30.5-36.0 [facility] Comment on above: Order Comment: Speci men Type: BLOOD SPECIMENOrdering Facility: [facility] Address: [address] [place] [address] Performed By: #### 5 7021-8 ####[facility] LABCLIA [id number] [place] [address] [place] MCV (RBC) [Entitic vol] 90.8 fL Normal 80.0-100.0 [facility] Comment on above: Order Comment: Speci men Type: BLOOD SPECIMENOrdering Facility: [facility] Address: [address] [place] [address] Performed By: #### 5 7021-8 ####[facility] LABIA [id number] [place] [address] [place] Monocytes (Bld) [#/Vol] 0.23 10*3/uL Normal <0.87 [facility] Comment on above: Order Comment: Speci men Type: BLOOD SPECIMENOrdering Facility: [facility] Address: [address] [place], [place] [address] Performed By: #### 5 7021-8 ####[facility] LABIA [id number] [address] [place] Monocytes/100 WBC (Bld) 5.0 % Normal [facility] Comment on above: Order Comment: Speci men Type: BLOOD SPECIMENOrdering Facility: [facility] Address: [address] [place], [place] [address] Performed By: #### 5 7021-8 ####[facility] LABCLIA [id number] [place] [address] [place] Neutrophils (Bld) [#/Vol] 2.46 10*3/uL Normal 1.45-7.50 [facility] Comment on above: Order Comment: Speci men Type: BLOOD SPECIMENOrdering Facility: [facility] Address: [address] Performed By: #### 5 7021-8 ####[facility] LABCLIA [id number] [address] [place] [facility] Neutrophils/100 WBC (Bld) 54.0 % Normal [facility] Comment on above: Order Comment: Speci men Type: BLOOD SPECIMENOrdering Facility: [facility] Address: [address] Performed By: #### 5 7021-8 ####[facility] LABCLIA [id number] [place] [address] [place] Nucleated RBC (Bld) [#/Vol] 10*3/uL Normal <0.01 [facility] Comment on above: Order Comment: Speci men Type: BLOOD SPECIMENOrdering Facility: [facility] Address: [address] [place], [place] [address] Performed By: #### 5 7021-8 ####[facility] LABCLIA [id number] [place] [address] [place] Nucleated RBC/100 WBC (Bld) [Ratio] 0.0 /100 WBC Normal [facility] Comment on above: Order Comment: Speci men Type: BLOOD SPECIMENOrdering Facility: [facility] Address: [address] Performed By: #### 5 7021-8 ####[facility] LABCLIA [id number] [place] [address] [place] Platelet mean volume (Bld) [Entitic vol] 11.3 fL Normal 9.0-12.7 [facility] Comment on above: Order Comment: Speci men Type: BLOOD SPECIMENOrdering Facility: [facility] Address: [address] [place], [place] [address] Performed By: #### 5 7021-8 ####[facility] LABCLIA [id number] [place] [address] [place] Platelets (Bld) [#/Vol] 292 10*3/uL Normal 150-400 [facility] Comment on above: Order Comment: Speci men Type: BLOOD SPECIMENOrdering Facility: [facility] Address: [address] [place] [address] Performed By: #### 5 7021-8 ####[facility] [id number] [place] [address] [place] RBC (Bld) [#/Vol] 4.46 10*6/uL Normal 3.90-5.20 [facility] Comment on above: Order Comment: Speci men Type: BLOOD SPECIMENOrdering Facility: [facility] Address: [address] [place] [address] Performed By: #### 5 7021-8 ####[facility] [id number] [place] [address] [place] WBC (Bld) [#/Vol] 4.56 10*3/uL Normal 3.70-11.00 [facility] Comment on above: Order Comment: Speci men Type: BLOOD SPECIMENOrdering Facility: [facility] Address: [address] [place] [address] Performed By: #### 5 7021-8 ####[facility] [id number] [place] [address] [place] Basophils (Bld) [#/Vol] 0.04 10*3/uL <0.11 k/uL [facility] Basophils/100 WBC (Bld) 0.9 % [facility] Differential cell count method Nom (Bld) Auto [facility] Eosinophils (Bld) [#/Vol] 0.09 10*3/uL <0.46 k/uL [facility] Eosinophils/100 WBC (Bld) 2.0 % [facility] Erythrocyte distribution width (RBC) [Ratio] 12.8 % 11.5 - 15.0 % [facility] Hematocrit (Bld) [Volume fraction] 40.5 % 36.0 - 46.0 % [facility] Hemoglobin (Bld) [Mass/Vol] 13.4 g/dL 11.5 - 15.5 g/dL [facility] Immature granulocytes (Bld) [#/Vol] <0.10 k/uL [facility] Immature granulocytes/100 WBC (Bld) 0.2 % [facility] Lymphocytes (Bld) [#/Vol] 1.73 10*3/uL 1.00 - 4.00 k/uL [facility] Lymphocytes/100 WBC (Bld) 37.9 % [facility] MCH (RBC) [Entitic mass] 30.0 pg 26.0 - 34.0 pg [facility] MCHC (RBC) [Mass/Vol] 33.1 g/dL 30.5 - 36.0 g/dL [facility] MCV (RBC) [Entitic vol] 90.8 fL 80.0 - 100.0 fL [facility] Monocytes (Bld) [#/Vol] 0.23 10*3/uL <0.87 k/uL [facility] Monocytes/100 WBC (Bld) 5.0 % [facility] Neutrophils (Bld) [#/Vol] 2.46 10*3/uL 1.45 - 7.50 k/uL [facility] Neutrophils/100 WBC (Bld) 54.0 % [facility] Nucleated RBC (Bld) [#/Vol] <0.01 k/uL [facility] Nucleated RBC/100 WBC (Bld) [Ratio] 0.0 /100 WBC [facility] Platelet mean volume (Bld) [Entitic vol] 11.3 fL 9.0 - 12.7 fL [facility] Platelets (Bld) [#/Vol] 292 10*3/uL 150 - 400 k/uL [facility] RBC (Bld) [#/Vol] 4.46 10*6/uL 3.90 - 5.2 0 m/uL [facility] WBC (Bld) [#/Vol] 4.56 10*3/uL 3.70 - 11. 00 k/uL [facility] CK CREATINE KINASEon 023 CK [Catalytic activity/Vol] 44 U/L 42 - 196 U/L [facility] CK SerPl-cCncon 06-12-2022 CK [Catalytic activity/Vol] 44 U/L Normal 42-196 [facility] Comment on above: Order Comment: Speci men Type: BLOOD SPECIMENOrdering Facility: [facility] Address: [address] [place] [address] [place] [id number] Performed By: #### 2 276-4, 2157-6, 21818-7, 62919-7 ####[facility] LABCLIA [id number] [address] [place] CNOVon 06-12-2022 CNOV Normal [facility] Coding Summary.on 06-12-2022 Coding Summary. CD:[id number] Ww +PGhlYWQ+AN7DZUZnJ77mr MEkaO2aA9LLLOeKWitoPAE POGwPQaKopkCxBH7apBDaE XJu IC8+XP8uPLBxFtobkCAxs0 Y1iMC5W67lyc3eGXhisWE6 QYEzFaCjhswxt1tkqTc8HT cuNmluOyBt ZQMdtI07ZRJ1rT41Ao65yA AuwPHsk0pouHe3KwJpJPOl LCN2mXgrDAuph5GxRXHkZ2 5neYFjm6Z1 EZUmpDoezZGpTwJuyOP2sD 7pTIsqtnlwf4lbnuoaXlh1 vg46cNGyc6W6eLC1H4Qxwf U9VQNttJYm GiwomXKTdS5uebtkj0jpnj kyXlHdGBUgZDg2TFu2QGKs sKvzVwNkTW62IBX5IKXdlu XuO2BwMEGs uOsjQoW3i3G6Ok5LD1ZZAw ylW2RGRZJCCGvwiEJ+PC90 vy73Q5LuTpfwWhj3FIXpIY G0rEM1gJ1l FZHkYBkmc1E5cEY9V4Vimb Cuem7nf0nkIPCtQLrqR18x bZSjv1H2ESKmsXG7FIYpvI ewZyAypJ02 Oyc+WTSebNztm4VdViznd4 bds5hfoJy6BrhaPSEcvhDf gZsdTGG7l4GjWt4yXJSeuC I3eEA4kD7o WbYrGsP7EKwkV930UfStpN QhIptkM71vB1VffJI+PHRy Jmn3YLRokWxgLK1zV2ZuAZ RpbmctbGVm sAyaUS1uLSKtymmnQAVjqP 5rLHPsR6q8WqKhPmJ0BIbl O9WoQFXbysrtAd96cW3uOt RmYjA9AKyg J0BzdcY6ROVuoPTjFAxvGC J2W04qc9E0CRNmXKYdGIZ9 bDL4rH7ffSepcykhvIZmbR sgdmVydGlj ZFtrQCzqB789FAVycHgfAy NvZGluZyBEYXRlOiAgMDQv MjgvMjAyMzwvdGQ+PHRkIH W7cStyMUWc xNZvSKygMn6pjBkrbVfjCA 4oJUCoiaslDWAiqD3cQKQi zOVnwChsFM7eQEItmwsct8 66MpBtVUS0 NLLcqRVuU9PisM3pZyIrCX DcNJTzI2GhhGTaCDlhW474 GVvrDuI5JFVulwCoF6VnYR FsaWduOiB0 h5B3Px7Fz8LbudcnW9WyiX CvYfZyTvtqQEp1N7BkLrnp dHI+MW86MTMhGM49PYk4RH K1kYulHXyt WPHfI1NomJ6gTwPvLISsEF RkOyc+PHRhYmxlIHdpZHRo LAqkPOKwSeDngQlfPL1iZv 9yZGVyLWNv pQgayNMbQmJms9apZHBmFK rrNK8yvJmzN1CpwEM4EGFm l1m9Qv01X61qZ9KiyUE+PG HldDB1mTS2 mR1xOmCxWsF7USsqK516Mh GiyYJsEmupp0vgi9byrYv5 CqL2JACjvjBgfExxFXR1q1 JtHg94B49o IHdpZHRoPSIxNSUiIHZhbG nwam7wfF7yOb7+PGNvbCB3 iTK1yH0pKaNqLaP5GYehZ9 49InRvcCIv Wrvzh2jgv9sxlKv7KuNuRS YxzmOrrUutVEE5u8KvQa87 S7JunAoqz7JnIln1rl85aJ Rjp8W6eSC9 C0OuVBZjkiaogQWxeUpeUP 2rVTPgqqimFOUmbF3wMDKe Z0b2XkSkStQ5BHlzE2Ytze R7HCSioKPd CUTksPLTsT2ldeiip9flln zvOxJmIWEqTDf9AQb9TGXy mQjkLsOoMUI0ZgI1AWD2oK XzdT2gtGzd hzmjbV6kFdh+IIF4vHFwdS RAUQ0zNtexuRC+PHRkIHN0 wOlsIGzmXKWfyW3uOWNxO0 y3SbCxQdA5 RAucG5LqgaO2ZXLwuVCkJS JyqDLBsH8gtwiwm6okmuho TuVyXGLnRWb5FXf4EUJceQ duOiBsZWZ0 HqN5JYW3tSHdaN9vwExkfo ybfF2gWwt+QmlydGggRGF0 EIz4Q7HoYzk0AWMovNynEF 0ncGFkZGlu Yv6eeXivbRbkJN1dJVGcub xpd205KdNcb3lwCDTezJZu ZUilKXU2Z21jr3S0JAExJP ChICW2yMN4 sX8nzMlpojxrqDYyvCtoem ErwGmoNIddJTurS845EPQc yNddOjQcUZw0Y8IfFzs1YP BtdHitFN0f eVFzVVjjJx6avLbdxRenOY 0tKBXmchocs350WuIze5jw JQTqzPNlFSfsXNJ8A35xk4 U4XGPoMKCu VAD2hEQ1fF4niZoebtdhmZ VmdDsgdmVydGljYWwtYWxp M083HSKroFxzNjIguCg4L0 SbAyt2QHEl aEtbMW9hwHUeKJpgRo0nvO dwxAyhEJ7rICNidlyke378 EnDnr9wnHXKslDIcVFtnRV L7T44tn6D5 SJBmQSHzLSR7iHU9fL6jjM lnbjogbGVmdDsgdmVydGlj BNdwCCjvC612ZMUxrTpkUz BhdGllbnQg QYoyRKz8F5SaQqfvmCV+PC 96DUNpIK05pSRwnXIsn2dg bLo9AnMbWFHlJXS3jFlnJE kxb5UtVGKw L84wrLQld8F8VRTtrUyeaP FdZiYooZX2hC6nXIxluifj y5oschbdBqqpu1mxdy82qR 96C96aJYvi ZHRoPSIzMCUiIHZhbGlnbj 1vhR3oFx7+LZMxbGB7nZC8 pK7dSVJjKbU4ICsxU159Sj RvcCIvPjxj r9fgv0cbiVc6SbB3MOOqpo FaxSxdTRV2g1QzSp77O93b IHdpZHRoPSIyMCUiIHZhbG kicm3spV5u Ii8+LTIhbRR5oFF4jL3yEp HdQuQ9AWvhV929PwJzxNFs EvknV39kO1BtyGP+PHRyPj t8NMIhaNrw HE6ccRRgWQieQi4cPOU2Rd ShLwLsKLywL0MdXLPriira birykKN2CPMkDQXfhN99Vv 9udDogMTBw eAMOrE2qqxccx3nvnivfJa CrXWNlYMo3SLg3YMOllNwv TdLfFNH2EgJ4ZFU8uKWfqQ 1hbGlnbjog uI7cQ1ErFVMhewofOl88cH 0gNeKnHrE9ZBavXez+R1VZ LCBCRVNTSUUgTTwvdGQ+PH DwCGZ1rXji YAzsALAyqC4kALRvT6p7Dp HpPdR6FEacL7JgWXKzxuaq Ow63eX2eTbBgNdC5NAngR1 OwztG8ETWy pXQzAQmfCEZ6A36dr0Y7BO RxSORiPDV5tYV2fL0qgHwc bjogbGVmdDsgdmVydGljYW yzDAkoN075 ZDXfcUquFyYpRqR7QlT3FX N9X1LxWwq4FNKmaHqoYE0w bLHlSZfsTc8olIvmvVtqBI 4wNTBpbjtw SEOalW9gMKNydZPscIsbTG 3aKGMvytzfm711YkUbKQF6 SECuwYSuC0XbrX0mUjJaDG JkITTvH3Pz kYFvCXuqL305PHcqCyR6PW RakrIaC0FkJFCfrJdyFgQ3 d3H1Hv8jBeLTQSZmblafaL Q+PHRkIHN0 aFneKOjsCHInyW7hALXtQ8 f0ZwIhHeF6VNxcL1DrRDJu jfzvQd81uY5cYqWzJoW4BG jwE6HjxxC9 DALqvGBbNVfnHTH1A90tx5 E4GKEoIEKzIFN6aJS0tK9b bGlnbjogbGVmdDsgdmVydG ljYWwtYWxp Z448PXWljVguGcSkpUFaSA wvdGQ+UFFbTNE9dGwtBSjh NABziB2jLUScX8o7ZxXvKk X4TPaoB4Nf RNNoyzkrRn78gV8eAzLlMc O2JTyzZ1FwlfW0CIPezZYv JTckWUR7N20pv8K9LIKgIF AdELT0aZY0 xY2faVsvrrqdxJWhtVbgcg GjlMdmTKyiEFfdI904WBPp vHlgFpDxEXTbOU7uiRiryB Q+ES27rl04 I9PePjkrXha9ILWjGQZ1kI T6sY0kDOJoYUpce0W4pNB8 E1YxzbNqgo7yt1raMGHlCI ypJ69qjOBu r2S1HKKkbOD1FLKuxLlwBt RofE07Skc+UBDutBzxe9Ud Iheyf4ryc7vjiPx3BgKbVL IgdmFsaWdu QIG7m7IbDj51M10pFNvmRI KwZZZzSMOiBCFziGgudt3q vA8vJn2+OFOxwXM2uYG5tL 0tXqZjAfV7 EPowF046QgQwvXRmUkkxz5 bhm1jdqPi2XzZmHHSkykKa cAsdPFY9b4JdGu63M8MvuN edy1CrPqm5 wo11cTBlw0B6tYT1G0YgEV JxhyabeFQjwTcyRQ5zXVJm edpoQCRxrB0cDMAfK4m8At GiRmE7XQxs F2FxgpT8MDUkvOXpZWOunP EWjS1hxrdil6vkrgprAjTo GFPlSZi0EJz2LKOqvGgfNw GwABF3RtO1 JMO4vUSbjO9vkWjwzdlsoE 9wOyc+ESo2h6yhoYMwSO4l qHI2BN28BO36pARiv7R8fJ Z9Q7WmTSPg jrcfpreduQU0PAMxOHSdqW 56Ez9eeCeoIr0gYTSmWGO7 DCDaqIGmS6NdtQ1oYvNmIH FsIAPrO4Ur hSKnEJvsN202PAacUqG5AN UvveTlK2EzEZWeiQasWfK2 q8R4Yp8FLR78EX78IR00lK Zcr3P1wBY4 X6YnPEXtilzajsrocKP4PT UlHWIyyB70Zl6dxZidQh8m GLJaWDD0ESQaoRFdG7YquG 9yOiAjMDAw KGFoH7SuzZZhLUcxN304JG gzAfL8UCWbejCtW5FdQEIs aOmyAjV9n5Q3Cw9VJw89MI 40OG72bDWp x0O9gMN2R7WdBRPboabqff dgvTR5SRYrADPaoT33Qr9o cRsaLb4yKOMfLTR5NLGjkJ PyL4KiwN5i UdIkMUVvBLBcX2CsqSVwPG nhK639GKqcVzQ7IXXcfoHa A7UhGQXsgMetLjG6p0R8Sc 1IRSoldib3 C5DxNpvqsOL+ZD03VQBwWC 21kFOcnWWxc1rsaRe5EnXu SRXmCBK7fQtwKEdtl8BpNE NfV94njKQm h8V4QEKx (more content not included)... Normal [facility] Comprehensive metabolic 2000 panelon 06-12-2022 Albumin [Mass/Vol] 4.3 g/dL 3.9 - 4.9 g/dL [facility] ALP [Catalytic activity/Vol] 64 U/L 34 - 123 U/L [facility] ALT [Catalytic activity/Vol] 20 U/L 7 - 38 U/L [facility] Anion gap [Moles/Vol] 10 mmol/L 9 - 18 mmol/L [facility] AST [Catalytic activity/Vol] 33 U/L 13 - 35 U/L [facility] Bilirubin [Mass/Vol] 0.4 mg/dL 0.2 - 1 .3 mg/dL [facility] Calcium [Mass/Vol] 9.3 mg/dL 8.5 - 10. 2 mg/dL [facility] Chloride [Moles/Vol] 106 mmol/L High 97 - 10 5 mmol/L [facility] CO2 [Moles/Vol] 23 mmol/L 22 - 30 mmol/L [facility] Creatinine [Mass/Vol] 0.76 mg/dL 0.58 - 0.96 mg/dL [facility] Estimated Glomerular Filtration Rate 106 mL/min/1.73m >=60 mL/min/1.73m [facility] Glucose [Mass/Vol] 79 mg/dL 74 - 99 mg/dL [facility] Potassium [Moles/Vol] 4.0 mmol/L 3.7 - 5.1 mmol/L [facility] Protein [Mass/Vol] 6.9 g/dL 6.3 - 8.0 g/dL [facility] Sodium [Moles/Vol] 139 mmol/L 136 - 144 mmol/L [facility] Urea nitrogen [Mass/Vol] 9 mg/dL 7 - 21 mg/dL [facility] Albumin [Mass/Vol] 4.3 g/dL Normal 3.9-4.9 [facility] Comment on above: Order Comment: Speci men Type: BLOOD SPECIMENOrdering Facility: [facility] Address: [address] [place] [address] Performed By: #### 4 498-2, 12380-6, 09448-0, 4485-9 ####[facility] LABCLIA [id number] [place] [address] [place] ALP [Catalytic activity/Vol] 64 U/L Normal 34-123 [facility] Comment on above: Order Comment: Speci men Type: BLOOD SPECIMENOrdering Facility: [facility] Address: [address] [place] [address] Performed By: #### 4 498-2, 64391-3, 10494-3, 4485-9 ####[facility] LABCLIA [id number] [address] STATES OF [facility] ALT [Catalytic activity/Vol] 20 U/L Normal 7-38 [facility] Comment on above: Order Comment: Speci men Type: BLOOD SPECIMENOrdering Facility: [facility] Address: [address] [place] [address] Performed By: #### 4 498-2, 64434-9, 41588-3, 4485-9 ####[facility] LABCLIA [id number] [place] [address] [place] Anion gap [Moles/Vol] 10 mmol/L Normal 9-18 [facility] Comment on above: Order Comment: Speci men Type: BLOOD SPECIMENOrdering Facility: [facility] Address: [address] [place] [address] Performed By: #### 4 498-2, 14153-8, 89787-6, 4485-9 ####[facility] LABCLIA [id number] [place] [address] [place] AST [Catalytic activity/Vol] 33 U/L Normal 13-35 [facility] Comment on above: Order Comment: Speci men Type: BLOOD SPECIMENOrdering Facility: [facility] Address: [address] [place] [address] Performed By: #### 4 498-2, 68861-7, 44444-8, 4485-9 ####[facility] LABCLIA [id number] [place] [address] [place] Bilirubin [Mass/Vol] 0.4 mg/dL Normal 0.2-1.3 [facility] Comment on above: Order Comment: Speci men Type: BLOOD SPECIMENOrdering Facility: [facility] Address: [address] [place] [address] Performed By: #### 4 498-2, 82333-3, 32835-1, 4485-9 ####[facility] LABCLIA [id number] [place] [address] [place] Calcium [Mass/Vol] 9.3 mg/dL Normal 8.5-10.2 [facility] Comment on above: Order Comment: Speci men Type: BLOOD SPECIMENOrdering Facility: [facility] Address: [address] [place] [address] Performed By: #### 4 498-2, 34997-0, 83249-4, 4485-9 ####[facility] LABCLIA [id number] [place] [address] [place] Chloride [Moles/Vol] 106 mmol/L High 97-105 [facility] Comment on above: Order Comment: Speci men Type: BLOOD SPECIMENOrdering Facility: [facility] Address: [address] [place] [address] Performed By: #### 4 498-2, 04367-6, 13501-1, 4485-9 ####[facility] LABCLIA [id number] [place] [address] [place] CO2 [Moles/Vol] 23 mmol/L Normal 22-30 [facility] Comment on above: Order Comment: Speci men Type: BLOOD SPECIMENOrdering Facility: [facility] Address: [address] [place] [address] Performed By: #### 4 498-2, 30494-4, 43411-1, 4485-9 ####[facility] LABCLIA [id number] [place] [address] [place] Creatinine [Mass/Vol] 0.76 mg/dL Normal 0.58-0.96 [facility] Comment on above: Order Comment: Speci men Type: BLOOD SPECIMENOrdering Facility: [facility] Address: [address] [place] [address] Performed By: #### 4 498-2, 40904-4, 97830-8, 4485-9 ####[facility] LABIA [id number] [place] [address] [place] ESTIMATED GLOMERULAR FILTRATION RATE 106 mL/min/1.73m??? Normal >=60 [facility] Comment on above: Order Comment: Speci men Type: BLOOD SPECIMENOrdering Facility: [facility] Address: [address] [place] [address] Result Comment: Rashmi mated Glomerular Filtration Rate (eGFR) is calculated using the 2020 CKD-EPI creatinine equation. This equation utilizes serum creatinine, sex, and age as parameters. The creatinine assay has traceable calibration to isotope dilution-mass spectrometry. Refer to KDIGO guidelines for clinical interpretation. In patients with unstable renal function, e.g. those with acute kidney injury, the eGFR may not accurately reflect actual GFR. Performed By: #### 4 498-2, 38381-1, 00239-5, 9 ####[facility] LABCLIA [id number] [address] [address] [place] Glucose [Mass/Vol] 79 mg/dL Normal 74-99 [facility] Comment on above: Order Comment: Geraldo marrero Type: BLOOD SPECIMENOrdering Facility: [facility] Address: [address] [place] [id number] Result Comment: The [place] [employer] (ADA) provides guidance for cutoff values for fasting glucose and random glucose. The ADA defines fasting as no caloric intake for at least 8 hours. Fasting plasma glucose results between 100 to 125 mg/dL indicate increased risk for diabetes (prediabetes).Fasting plasma glucose results greater than or equal to 126 mg/dL meet the criteria for diagnosis of diabetes. In the absence of unequivocal hyperglycemia, results should be confirmed by repeat testing. In a patient with classic symptoms of hyperglycemia or hyperglycemic crisis, random plasma glucose results greater than or equal to 200 mg/dL meet the criteria for diagnosis of diabetes.Reference: Standards of Medical Care in Diabetes 2016, [place] [employer]. Diabetes Care. 2016.39(Suppl 1). Performed By: #### 4 498-2, 70103-1, 06017-3, 9 ####[facility] LABCLIA [id number] [address] [address] [place] Potassium [Moles/Vol] 4.0 mmol/L Normal 3.7-5.1 [facility] Comment on above: Order Comment: Geraldo marrero Type: BLOOD SPECIMENOrdering Facility: [facility] Address: [address] [id number] Performed By: #### 4 498-2, 24701-8, 20432-1, 4484-9 ####[facility] LABCLIA [id number] [place] [address] [place] Protein [Mass/Vol] 6.9 g/dL Normal 6.3-8.0 [facility] Comment on above: Order Comment: Speci men Type: BLOOD SPECIMENOrdering Facility: [facility] Address: [address] [place], [place] [address] Performed By: #### 4 498-2, 02676-3, 39334-7, 4485-9 ####[facility] LABCLIA [id number] [place] [address] [place] Sodium [Moles/Vol] 139 mmol/L Normal 136-144 [facility] Comment on above: Order Comment: Speci men Type: BLOOD SPECIMENOrdering Facility: [facility] Address: [address] [place] [address] Performed By: #### 4 498-2, 17156-6, 32971-0, 4485-9 ####[facility] LABCLIA [id number] [place] [address] [place] Urea nitrogen [Mass/Vol] 9 mg/dL Normal 7-21 [facility] Comment on above: Order Comment: Speci men Type: BLOOD SPECIMENOrdering Facility: [facility] Address: [address] [place] [address] Performed By: #### 4 498-2, 43296-5, 71338-9, 4485-9 ####[facility] LABCLIA [id number] [place] [address] [place] Cyclic citrullinated peptide IgG Qnon 06-12-2022 [facility] ANTIBODY IGG QUALITATIVE Negative Normal Negative [facility] Comment on above: Order Comment: Speci men Type: BLOOD SPECIMENOrdering Facility: [facility] Address: [address] [place] [address] Performed By: #### 3 3935-8 ####[facility] LABCLIA [id number] [place] [address] [place] FERRITIN BLDon 06-12-2022 Ferritin [Mass/Vol] 36.6 ng/mL 14.7 - 2 05.1 ng/mL [facility] FOLATE SERUMon 06-12-2022 Folate [Mass/Vol] 6.8 ng/mL >4.7 ng/mL [facility] Ferritin SerPl-mCncon 2022 Ferritin [Mass/Vol] 36.6 ng/mL Normal 14.7-205.1 [facility] Comment on above: Order Comment: Speci men Type: BLOOD SPECIMENOrdering Facility: [facility] Address: [address] [place] [address] Performed By: #### 2 276-4, 2157-6, 05073-6, 91650-8 ####[facility] LABCLIA [id number] [address] Folate SerPl-mCncon 06-13-19 Folate [Mass/Vol] 6.8 ng/mL Normal >4.7 [facility] Comment on above: Order Comment: Speci men Type: BLOOD SPECIMENOrdering Facility: [facility] Address: [address] [place] [address] Performed By: #### 2 284-8, 2885-2, 2132-9 ####[facility] LABIA [id number] [address] IMMUNOFIXATION SCREEN, SERUM on 06-12-2022 MPA RESULT No M protein is identified. Normal No M protein is identified. [facility] Comment on above: Order Comment: Speci men Type: BLOOD SPECIMENOrdering Facility: [facility] Address: [address] [place] [address] Performed By: #### I [facility] ####[facility] LABIA [id number] [address] [place] STAFF REVIEW (MPA) Reviewed by May Cr MD [facility] Comment on above: Order Comment: Speci men Type: BLOOD SPECIMENOrdering Facility: [facility] Address: [address] [address] Performed By: #### I FESC ####[facility] LABCLIA [id number] [place] [address] [place] IMMUNOGLOBULINS GAMon 2022 IgA [Mass/Vol] 99 mg/dL Normal 70-400 [facility] Comment on above: Order Comment: Speci men Type: BLOOD SPECIMENOrdering Facility: [facility] Address: [address] [address] Performed By: #### S ERIMM ####[facility] LABCLIA [id number] [place] [address] [place] IgG [Mass/Vol] 861 mg/dL Normal 700-1600 [facility] Comment on above: Order Comment: Speci men Type: BLOOD SPECIMENOrdering Facility: [facility] Address: [address] [address] Performed By: #### S ERIMM ####[facility] LABCLIA [id number] [place] [address] [place] IgM [Mass/Vol] 140 mg/dL Normal 40-230 [facility] Comment on above: Order Comment: Speci men Type: BLOOD SPECIMENOrdering Facility: [facility] Address: [address] [place] [address] Performed By: #### S ERIMM ####[facility] LABCLIA [id number] [place] [address] [place] Iron and Iron binding capaci ty panelon 06-12-2022 Iron [Mass/Vol] 100 ug/dL 41 - 186 ug/dL [facility] Iron binding capacity [Mass/Vol] 332 ug/dL 232 - 386 ug/dL [facility] Iron/TIBC [Molar ratio] 30.1 % 15.0 - 57.0 % [facility] Iron [Mass/Vol] 100 ug/dL Normal 41-186 [facility] Comment on above: Order Comment: Speci men Type: BLOOD SPECIMENOrdering Facility: [facility] Address: [address] Performed By: #### 4 498-2, 68747-9, 93869-7, 4485-9 ####[facility] LABCLIA [id number] [place] [address] [place] Iron binding capacity [Mass/Vol] 332 ug/dL Normal 232-386 [facility] Comment on above: Order Comment: Speci men Type: BLOOD SPECIMENOrdering Facility: [facility] Address: [address] Performed By: #### 4 498-2, 17117-8, 60362-8, 4485-9 ####[facility] LABCLIA [id number] [place] [address] [place] Iron/TIBC [Molar ratio] 30.1 % Normal 15.0-57.0 [facility] Comment on above: Order Comment: Speci men Type: BLOOD SPECIMENOrdering Facility: [facility] Address: [address] [place], [place] [address] Performed By: #### 4 498-2, 68105-2, 07904-1, 4485-9 ####[facility] LABCLIA [id number] [place] [address] [place] MAGNESIUM BLDon 06-12-2022 Magnesium [Mass/Vol] 2.2 mg/dL 1.7 - 2 .3 mg/dL [facility] Magnesium SerPl-mCncon 06-12 Magnesium [Mass/Vol] 2.2 mg/dL Normal 1.7-2.3 [facility] Comment on above: Order Comment: Speci men Type: BLOOD SPECIMENOrdering Facility: [facility] Address: [address] Performed By: #### 2 276-4, 2157-6, 41247-0, 93837-2 ####[facility] LABCLIA [id number] [place] [address] [place] PROTEIN ELECTROPHORESIS SERU M (P)on 06-12-2022 Albumin [Mass/Vol] 4.06 g/dL Normal 3.43-5.41 [facility] Comment on above: Order Comment: Speci men Type: BLOOD SPECIMENOrdering Facility: [facility] Address: [address] [place] [address] Performed By: #### L [id number] ####[facility] LABIA [id number] [place] [address] [place] Alpha 1 globulin Elph [Mass/Vol] 0.28 g/dL Normal 0.18-0.43 [facility] Comment on above: Order Comment: Speci men Type: BLOOD SPECIMENOrdering Facility: [facility] Address: [address] [place] [address] Performed By: #### L [id number] ####[facility] LABIA [id number] [place] [address] [place] Alpha 2 globulin Elph [Mass/Vol] 0.49 g/dL Normal 0.42-0.98 [facility] Comment on above: Order Comment: Speci men Type: BLOOD SPECIMENOrdering Facility: [facility] Address: [address] [place] [address] Performed By: #### L [id number] ####[facility] LABIA [id number] [place] [address] [place] Beta globulin Elph [Mass/Vol] 0.69 g/dL Normal 0.61-1.17 [facility] Comment on above: Order Comment: Speci men Type: BLOOD SPECIMENOrdering Facility: [facility] Address: [address] [place] [address] Performed By: #### L [id number] ####[facility] LABIA [id number] [place] [address] [place] Gamma globulin Elph [Mass/Vol] 0.78 g/dL Normal 0.53-1.51 [facility] Comment on above: Order Comment: Speci men Type: BLOOD SPECIMENOrdering Facility: [facility] Address: [address] [place] [address] Performed By: #### L [id number] ####[facility] LABCLIA [id number] [address] [place] M-PROTEIN LOCATION Normal [facility] Comment on above: Order Comment: Speci men Type: BLOOD SPECIMENOrdering Facility: [facility] Address: [address] [place] [address] Result Comment: Not Applicable. Performed By: #### L [id number] ####[facility] LABCLIA [id number] [address] [place] Protein Fractions [Interp] No definitive M protein is identified on protein electrophoresis. Normal No definitive M protein is identified on protein electrophoresi s. [facility] Comment on above: Order Comment: Speci men Type: BLOOD SPECIMENOrdering Facility: [facility] Address: [address] [place] [address] Performed By: #### L [id number] ####[facility] LABCLIA [id number] [address] [place] Protein.monoclonal Elph [Mass/Vol] 0.00 g/dL Normal <=0.00 [facility] Comment on above: Order Comment: Speci men Type: BLOOD SPECIMENOrdering Facility: [facility] Address: [address] [place], [place] [address] Performed By: #### L [id number] ####[facility] LABCLIA [id number] [place] [address] [place] SPE STAFF REVIEW Reviewed by May Cr MD Normal [facility] Comment on above: Order Comment: Speci men Type: BLOOD SPECIMENOrdering Facility: [facility] Address: [address] [place], [place] [address] Performed By: #### L [id number] ####[facility] LABCLIA [id number] [place] [address] [place] Prot SerPl-mCncon 06-12-2022 Protein [Mass/Vol] 6.3 g/dL Normal 6.3-8.0 [facility] Comment on above: Order Comment: Speci men Type: BLOOD SPECIMENOrdering Facility: [facility] Address: [address] [place] [address] Performed By: #### 2 284-8, 2885-2, 2132-9 ####[facility] LABIA [id number] [address] [place] RHEUMATOID FACTOR BLon 06-12 Rheumatoid factor Qn <16 IU/mL [facility] Rheumatoid fact SerPl-aCncon 06-12-2022 Rheumatoid factor Qn [IU]/mL Normal <16 [facility] Comment on above: Order Comment: Speci men Type: BLOOD SPECIMENOrdering Facility: [facility] Address: [address] [place] [address] Performed By: #### 2 276-4, 2157-6, 69076-2, 63207-2 ####[facility] LABIA [id number] [address] [place] VITAMIN B1 (THIAMINE), WHOLE BLOODon 06-12-2022 Thiamine (Bld) [Moles/Vol] 195.7 nmol/L Normal 84.3-213.3 [facility] Comment on above: Order Comment: Speci men Type: BLOOD SPECIMENOrdering Facility: [facility] Address: [address] [place], [place] [address] Result Comment: This assay measures the concentration of thiamine diphosphate (TDP), the primary active form of vitamin B1. Approximately 90 percent of vitamin B1 present in whole blood is TDP. Thiamine and thiamine monophosphate, which comprise the remaining 10 percent, are not measured.This test was developed and its performance characteristics determined by [facility]'s [facility] [place] ([facility]). It has not been cleared or approved by the FDA. -[facility] is regulated under CLIA as qualified to perform high-complexity testing. This test is used for clinical purposes. It should not be regarded as investigational or for research. Performed By: #### B 1WB ####[facility] LABCLIA [id number] [facility] [id number] [place] [address] OF [facility] VITAMIN B12 BLOODon 06-13-19 Cobalamin (Vitamin B12) [Mass/Vol] 854 pg/mL 232 - 1,245 pg/mL [facility] VITAMIN B3/NIACIN, PLASMAon 06-12-2022 NICOTINAMIDE 23.0 ng/mL Normal 5.0-48.0 [facility] Comment on above: Order Comment: Speci [facility] Type: BLOOD SPECIMENOrdering Facility: [facility] Address: [address] [place] [address] Performed By: #### B 3VIT ####[facility] LABCLIA [id number] [place] [address] NICOTINIC ACID <5.0 Normal Cutoff:<5.0 [facility] Comment on above: Order Comment: Geraldo marrero Type: BLOOD SPECIMENOrdering Facility: [facility] Address: [address] [address] Performed By: #### B 3VIT ####[facility] LABCLIA [id number] [place] [address] NICOTINURIC ACID <5.0 Normal Cutoff:<5.0 [facility] Comment on above: Order Comment: Geraldo [facility] Type: BLOOD SPECIMENOrdering Facility: [facility] Address: [address] [place] [address] Result Comment: ---- ADDITIONAL INFORMATION Testing performed by Liquid Chromatography-Tandem MassSpectrometry (LC-MS/MS)This test was developed and its performance characteristicsdetermined by [facility] in a manner consistent with CLIArequirements. This test has not been cleared or approved bythe U.S. Food and Drug Administration.Test Performed by:[facility] [id number] [place] [address] Director: Moncho Arreguin M.D. Ph.D.; CLIA# [id number] Performed By: #### B 3VIT ####[facility] LABCLIA [id number] [place] [address] VITAMIN B6/PYRIDOXINon 06-12 VITAMIN B6 97.3 nmol/L Normal 20.0-125.0 [facility] Comment on above: Order Comment: Speci men Type: BLOOD SPECIMENOrdering Facility: [facility] Address: [address] [id number] Result Comment: INTE RPRETIVE INFORMATION: Vitamin B6 (Pyridoxal 5-Phosphate)Pyridoxal 5'-phosphate measured in a specimen collected followingan 8-hour or overnight fast accurately indicates vitamin F0ttztryegtkt status. Non-fasting specimen concentration reflectsrecent vitamin intake.This test was developed and its performance characteristicsdetermined by [facility]. It has not been cleared orapproved by the US Food and Drug Administration. This test wasperformed in a CLIA certified laboratory and is intended forclinical purposes.Performed By: [facility] [place], [place] [id number] Director: Kirt Murphy MD, PhD Performed By: #### V ITB6 ####[facility] LABORATORIESCLIA [id number] [place] [address] Vit B12 SerPl-mCncon 023 Cobalamin (Vitamin B12) [Mass/Vol] 854 pg/mL Normal 232-1245 [facility] Comment on above: Order Comment: Speci men Type: BLOOD SPECIMENOrdering Facility: [facility] Address: [address] [place] [address] Performed By: #### 2 284-8, 2885-2, 2132-9 ####[facility] LABCLIA [id number] [place] [id number] [place] cCP IgG SerPl-aCncon 023 Cyclic citrullinated peptide IgG Qn <15 Normal <20 [facility] Comment on above: Order Comment: Speci men Type: BLOOD SPECIMENOrdering Facility: [facility] Address: [address] [id number] Performed By: #### 3 3935-8 ####[facility] LABCLIA [id number] [address] [address] [place] Physician Orderon 06-11-2022 Physician Order [id number] 0CD:[address] [facility] Physician Order [id number] 0CD:[address] [facility] Ambulatory Visit Summaryon 0 06-10-2022 Ambulatory Visit Summary ABBEY GARCIA :1990 Visit Date:06/10/2022 Ambulatory Visit Instructions Your Diagnosis BMI 29.0-29.9,adult Your Care Team Attending Physician - Jaquan Paula Primary Care Physician - Jaquan Paula This Is Your Medications List [facility] Prescription ( minipill Birthcontrol) acetaminophen-codeine (acetaminophen-codeine 300 mg-15 mg oral tablet) acetaminophen-oxycodon e (acetaminophen-oxycodo ne 325 mg-5 mg Tab) dicyclomine (Bentyl 10 mg Cap) dicyclomine (Bentyl 10 mg Cap) doxycycline (doxycycline hyclate 100 mg Cap) duloxetine (Cymbalta) escitalopram (Lexapro 10 mg Tab) escitalopram (Lexapro 5 mg oral tablet) gabapentin (gabapentin 300 mg Cap) iron polysaccharide (ProFe) levothyroxine levothyroxine (levothyroxine 125 mcg (0.125 mg) Tab) liothyronine (liothyronine 5 mcg Tab) meclizine (Antivert 12.5 mg Tab) metformin mirtazapine (mirtazapine 15 mg Tab) mirtazapine (mirtazapine 15 mg Tab) multivitamin (Multi Vitamins oral tablet) ondansetron (Zofran ODT 4 mg Tab) ondansetron (ondansetron 4 mg Dis Tab) pantoprazole (Protonix 40 mg Tab-DR) promethazine (promethazine 25 mg Tab) promethazine (promethazine 25 mg Tab) sertraline sucralfate (Carafate Tab) Procedures Performed Revision (01/29/2022), Gastric sleeve (02/15/2021), Esophagogastroduodenos copy (01/20/2021), Hysterectomy (11/04/2020). Discharge Vitals Heart Rate (Peripheral) 74 Respiratory Rate 18 Blood Pressure 142/120(Sitting) Blood Pressure 164/120(Standing) Blood Pressure 168/120(Supine) Height 66 in Height 168 cm Weight 184.03 lb Weight 83.65 kg BMI 29.64 What to do next Scheduled Follow-Up Appointments 2022 3:00 PM EDT With: Guero JOHNSON, Raulito Galvan Where: [facility] Medications What How Much When Why Instructions New meclizine (Antivert 12.5 mg Tab) 1 Tablets By Mouth 3 times a day as needed for for dizziness BMI 29.0-29.9,adult Pickup at [facility]/pharmacy #[id number] Unchanged acetaminophen-codeine (acetaminophen-codeine 300 mg-15 mg oral tablet) 1 Tablets By Mouth 2 times a day Right shoulder pain Unchanged acetaminophen-oxycodon e (acetaminophen-oxycodo ne 325 mg-5 mg Tab) 1 Tablets By Mouth Every 4 hours as needed for for pain Unchanged dicyclomine (Bentyl 10 mg Cap) 1 Capsules By Mouth 4 times a day Positive Lyme disease serology Duration: 10 Days Unchanged dicyclomine (Bentyl 10 mg Cap) 2 Capsules By Mouth 4 times a day Unchanged doxycycline (doxycycline hyclate 100 mg Cap) 1 Capsules By Mouth 2 times a day Positive Lyme disease serology Unchanged duloxetine (Cymbalta) 60 Milligram By Mouth 2 times a day Unchanged escitalopram (Lexapro 10 mg Tab) 1 Tablets By Mouth Every day Unchanged escitalopram (Lexapro 5 mg oral tablet) 1 Tablets By Mouth Every day Unchanged gabapentin (gabapentin 300 mg Cap) See instructions Neuropathy 1 cap(s) Oral daily x 1 day, 1 tab BID x 1 day, then 1 tab TID thereafter. Unchanged iron polysaccharide (ProFe) 180 Milligram By Mouth Every day Unchanged levothyroxine 75 Microgram By Mouth Every day Unchanged levothyroxine (levothyroxine 125 mcg (0.125 mg) Tab) 1 Tablets By Mouth Every day Unchanged liothyronine (liothyronine 5 mcg Tab) 5 Microgram By Mouth Every day Unchanged metformin 1,000 Milligram By Mouth 2 times a day Unchanged mirtazapine (mirtazapine 15 mg Tab) 1 Tablets By Mouth Once a day (at bedtime) Unchanged mirtazapine (mirtazapine 15 mg Tab) Unchanged Misc Prescription ( minipill Birthcontrol) 0 Every day Unchanged multivitamin (Multi Vitamins oral tablet) 1 Tablets By Mouth Every day Unchanged ondansetron (ondansetron 4 mg Dis Tab) 1 Tablets By Mouth Every 6 hours Unchanged ondansetron (Zofran ODT 4 mg Tab) 1 Tablets By Mouth 3 times a day Unchanged pantoprazole (Protonix 40 mg Tab-DR) 1 Tablets By Mouth 2 times a day Unchanged promethazine (promethazine 25 mg Tab) 1 Tablets By Mouth Every 6 hours as needed for as needed for nausea/vomiting Unchanged promethazine (promethazine 25 mg Tab) 1 Tablets By Mouth Every 6 hours as needed for as needed for nausea/vomiting Unchanged sertraline 100 Milligram By Mouth Every day Unchanged sucralfate (Carafate Tab) 1 Tablets By Mouth 4 times a day Pharmacy Information [facility]/pharmacy #[id number]: [address] [place], [place] [id number] [phone] Allergies codeine (unknown) Problems Ongoing - Any problem that you are currently receiving treatment for. BMI 30.0-30.9,adult LUQ pain Nausea Historical - Any problem that you are no longer receiving treatment for. Allergic rhinitis Anemia Hypothyroidism Metabolic syndrome PCOS- polycystic ovary syndrome Normal [facility] Auto Diffon 06-10-2022 Basophils/100 WBC (Bld) 0.8 % Normal 0.0-2.0 [facility] Comment on above: Order Comment: Order Added by Discern Expert. Performed By: #### 2 201236, 80053411, 7320571, 7530094, 36118107, 31520121, 63210031, 2955737 #### [facility] [address] [place] [address] Basophils/Leukocytes Auto (Bld) [Pure # fraction] 0.0 E9/L Normal 0.0-0.2 [facility] Comment on above: Order Comment: Order Added by Discern Expert. Performed By: #### 2 737392, 32231244, 4001373, 3640226, 97199428, 56099723, 67809717, 6965755 #### [facility] [address] [place] [address] Eosinophils/100 WBC (Bld) 2.2 % Normal 0.0-8.0 [facility] Comment on above: Order Comment: Order Added by Discern Expert. Performed By: #### 2 489747, 78667385, 6603339, 5847103, 38740620, 16086918, 28202682, 6947884 #### [facility] [address] [place] [address] Eosinophils/Leukocyte s Auto (Bld) [Pure # fraction] 0.1 E9/L Normal 0.0-0.5 [facility] Comment on above: Order Comment: Order Added by Discern Expert. Performed By: #### 2 939021, 20476673, 4793387, 9483052, 73007316, 37721738, 84872555, 8452090 #### [facility] [address] [place] [address] Lymphocytes/100 WBC (Bld) 33.1 % Normal 14.0-50.0 [facility] Comment on above: Order Comment: Order Added by Discern Expert. Performed By: #### 2 173318, 88640909, 0129100, 1323146, 14468524, 85845110, 53613618, 6884847 #### [facility] [address] [place] [address] Lymphocytes/Leukocyte s Auto (Bld) [Pure # fraction] 1.9 E9/L Normal 1.0-4.0 [facility] Comment on above: Order Comment: Order Added by Discern Expert. Performed By: #### 2 518501, 68724075, 4283327, 1147212, 03681366, 48546213, 96478166, 1784375 #### [facility] [address] [place] [address] Monocytes/100 WBC (Bld) 5.4 % Normal 4.0-14.0 [facility] Comment on above: Order Comment: Order Added by Discern Expert. Performed By: #### 2 896284, 92234313, 2920805, 6805577, 53160175, 17707737, 16688967, 8438208 #### [facility] [address] [place] [address] Monocytes/Leukocytes Auto (Bld) [Pure # fraction] 0.3 E9/L Normal 0.2-1.0 [facility] Comment on above: Order Comment: Order Added by Discern Expert. Performed By: #### 2 499955, 72434150, 2180660, 1182240, 50244962, 26480697, 84103256, 4967440 #### [facility] [address] [place] [address] Neutrophils/100 WBC (Bld) 58.5 % Normal 36.0-75.0 [facility] Comment on above: Order Comment: Order Added by Discern Expert. Performed By: #### 2 048058, 41492778, 0942015, 2110812, 09532461, 62504824, 44468493, 0997508 #### [facility] [address] [place] [address] Neutrophils/Leukocyte s Auto (Bld) [Pure # fraction] 3.4 E9/L Normal 2.0-7.5 [facility] Comment on above: Order Comment: Order Added by Discern Expert. Performed By: #### 2 037939, 93867913, 2685482, 8728278, 42241074, 98160333, 05460438, 6671816 #### [facility] [address] [place] [address] BMPon 06-10-2022 Creatinine [Mass/Vol] 0.8 mg/dL Normal 0.5-1.3 [facility] Comment on above: Performed By: #### 2 550809, 64664930, 7008531, 7164848, 66055142, 40619040, 88803813, 1681037 #### [facility] [address] [place] [address] Urea nitrogen [Mass/Vol] 12 mg/dL Normal 5-21 [facility] Comment on above: Performed By: #### 2 575008, 16381003, 7177970, 7166642, 30118355, 76006501, 30401269, 7121499 #### [facility] [address] [place] [address] Urea nitrogen/Creatinine [Mass ratio] 15 No Units Normal 10-20 [facility] Comment on above: Performed By: #### 2 131568, 12395482, 8679079, 6581232, 02121397, 54938622, 03782962, 7746757 #### [facility] [address] [place] [address] Anion gap [Moles/Vol] 13 mmol/L Normal 6-16 [facility] Comment on above: Performed By: #### 2 634300, 46945628, 9142420, 9513847, 65862636, 22493929, 87359986, 2618516 #### [facility] [address] [place] [address] Calcium [Mass/Vol] 9.0 mg/dL Normal 8.9-11.1 [facility] Comment on above: Performed By: #### 2 075698, 43078496, 9015503, 1684858, 02796472, 88795411, 51027661, 2943158 #### [facility] [address] [place] [address] Chloride [Moles/Vol] 105 mmol/L Normal 101-111 [facility] Comment on above: Performed By: #### 2 097700, 69451875, 7203264, 9495739, 59170341, 24190497, 87827157, 2628703 #### [facility] [address] [place] [address] CO2 [Moles/Vol] 20 mmol/L Low 21-31 [facility] Comment on above: Performed By: #### 2 359888, 58187461, 7092763, 2778821, 99272494, 08672994, 41163346, 6808905 #### [facility] [address] [place] [address] Glucose [Mass/Vol] 83 mg/dL Normal 55-199 [facility] Comment on above: Result Comment: If t his glucose result represents a fasting glucose, interpretation should refer to the following reference range: 55-99 mg/dL Performed By: #### 2 051932, 82723755, 4167938, 9061841, 75025477, 70785537, 47726374, 8792070 #### [facility] [address] [place] [address] Potassium [Moles/Vol] 3.4 mmol/L Low 3.5-5.3 [facility] Comment on above: Performed By: #### 2 547690, 48577181, 1866758, 1551787, 36641346, 82033098, 26020547, 5123540 #### [facility] [address] [place] [address] Sodium [Moles/Vol] 135 mmol/L Normal 135-145 [facility] Comment on above: Performed By: #### 2 673769, 59856243, 1196563, 7670490, 20190422, 96078652, 88095458, 6462733 #### [facility] [address] [place] [address] CBC w/ Auto Diffon 3 Erythrocyte distribution width (RBC) [Ratio] 13.9 % Normal 10.9-14.2 [facility] Comment on above: Performed By: #### 2 027018, 35782810, 7426964, 7131269, 28447721, 98614462, 38498030, 1956252 #### [facility] [address] [place] [address] Hematocrit (Bld) [Volume fraction] 40.9 % Normal 34.0-46.0 [facility] Comment on above: Performed By: #### 2 618214, 55214311, 6164566, 4978328, 93382974, 14006127, 76141862, 3224817 #### [facility] [address] [place] [address] Hemoglobin (Bld) [Mass/Vol] 13.9 g/dL Normal 12.0-16.0 [facility] Comment on above: Performed By: #### 2 452808, 36064175, 2258826, 2696902, 10629938, 79389713, 62672393, 3093830 #### [facility] [address] [place] [address] MCH (RBC) [Entitic mass] 30.6 pg Normal 27.0-34.0 [facility] Comment on above: Performed By: #### 2 514462, 16660547, 5481000, 4946295, 68545860, 35112518, 07229661, 1342294 #### [facility] [address] [place] [address] MCHC (RBC) [Mass/Vol] 34.0 g/dL Normal 31.4-36.0 [facility] Comment on above: Performed By: #### 2 016560, 77440996, 3472243, 3432852, 42538346, 42819688, 93018718, 7568364 #### [facility] [address] [place] [address] MCV (RBC) [Entitic vol] 89.9 fL Normal 80.0-100.0 [facility] Comment on above: Performed By: #### 2 358458, 75437192, 7802313, 1672574, 91424796, 86980375, 07011611, 8479982 #### [facility] [address] [place] [address] Platelet mean volume (Bld) [Entitic vol] 9.1 fL Normal 6.4-10.8 [facility] Comment on above: Performed By: #### 2 497001, 66154710, 3485153, 0543317, 59607360, 96885835, 52227260, 2223828 #### [facility] [address] [place] [address] Platelets (Bld) [#/Vol] 249.0 E9/L Normal 150.0-500.0 [facility] Comment on above: Performed By: #### 2 990324, 72955080, 8087109, 0433684, 02903906, 12685284, 71686435, 9011502 #### [facility] [address] [place], [place] [address] RBC (Bld) [#/Vol] 4.6 E12/L Normal 4.3-5.9 [facility] Comment on above: Performed By: #### 2 277544, 85359377, 4199681, 8732710, 41716960, 04750481, 19039658, 9043071 #### [facility] [address] [place] [address] WBC corrected for nucl RBC Auto (Bld) [#/Vol] 5.8 E9/L Normal 4.0-11.0 [facility] Comment on above: Performed By: #### 2 082794, 69497774, 5575932, 8275101, 25217108, 95508783, 31705002, 2965146 #### [facility] [address] [place] [address] CHEMISTRYOrdered By: SYSTEM SYSTEM on 06-10-2022 Troponin I.cardiac [Mass/Vol] pg/mL Low 10.10 - 27.10 pg/mL [facility] Anion gap [Moles/Vol] 13 mmol/L Normal 6 - 16 mEq/L [facility] Calcium [Mass/Vol] 9.0 mg/dL Normal 8.9 - 11. 1 mg/dL [facility] Chloride [Moles/Vol] 105 mmol/L Normal 101 - 1 11 mmol/L [facility] CO2 [Moles/Vol] 20 mmol/L Low 21 - 31 mmol/L [facility] Creatinine [Mass/Vol] 0.8 mg/dL Normal 0.5 - 1.3 mg/dL [facility] CRP [Mass/Vol] 0.6 mg/dL Normal <=1.9mg/dL [facility] ol GFR/1.73 sq M.predicted among non-blacks MDRD (S/P/Bld) [Vol rate/Area] 100 mL/min/1.73 m2 Normal >=59mL/min/1.7 3 m2 [facility] Chem S Glucose [Mass/Vol] 83 mg/dL Normal 55 - 199 mg/dL [facility] Potassium [Moles/Vol] 3.4 mmol/L Low 3.5 - 5.3 mmol/L [facility] Sodium [Moles/Vol] 135 mmol/L Normal 135 - 145 mmol/L [facility] Troponin I.cardiac [Mass/Vol] pg/mL Low 10.10 - 27.10 pg/mL [facility] Urea nitrogen [Mass/Vol] 12 mg/dL Normal 5 - 21 mg/dL FT Remisol Urea nitrogen/Creatinine [Mass ratio] 15 mg/mg Normal 10 - 20 [facility] Remisol COAGULATIONOrdered By: Gladys Blair on 06-10-2022 aPTT Coag (PPP) [Time] 34.8 s Normal 25.1 - 36.5 second(s) [facility] Auto Coag INR Coag (PPP) [Relative time] 1.1 {INR} Invalid Interpretation Code FT Auto Coag PT Coag (PPP) [Time] 12.6 s High 9.4 - 1 2.5 second(s) [facility] Auto Coag CRPon 06-10-2022 CRP [Mass/Vol] 0.6 mg/dL Normal <=1.9 [place] [facility] Comment on above: Performed By: #### 2 [id number] #### [facility] [address] [place] [address] [place] [address] Coding Summary.on 06-10-2022 Coding Summary. CD:[id number] Ww +PGhlYWQ+RG3KHAIhC27bc UJkhO6eK9EUVRtLPqokCWO DRMuLAiXntbUnRJ0ezIPeL XJu IC8+RP2iRFRxJhfwyBVed9 E5qSP8C58pud1jDTiuzNV4 FWRrXmTwlwcxp6byiKc7MT cuNmluOyBt VIOxeM99GFC4uT70Sk08fF ZbtBZty0bmpNq0OfXbRCJa HNY1pGliCElem4FuEYDdZ0 0erEYho5L1 CTNslNbejBNwHkLkbAO2mV 8iVHjgebupy7fuuscbVjk9 me58qCVtp0T0fEO0W9Kmef B8FOKqzGQh IlfnrCIJqP4wwfuzc6ssch gfRtZdYPTkYHn3QDt5JFKi eNhrFkAeLQ71BBC1KZZace YjH7JeVUKp xJtoBmT9t0O8Ok9AF5XVKd umJ6WSHFOHBVgijDM+PC90 lf99S1HwIqikKuq9XJTiJB T2uSI3xQ4c VARoRJuoc3X9mHY5Y5Knak Jhho6nq9cnVNNjJFenU94l cVYft3A3HMXuxZL5PZEsdW jbAgKfbK57 Oyc+CVDstMnyk1SgYfgla3 gwp9ffnSz6PglyPIQeswHr hNgpMWJ7p3PjFw9jTCEtwD X2lCH8wS4y StYbGlW3WFccF815EvNkbU BqNtlhR07tL2SxjEF+PHRy Uum4KOGdeIdpWW6pK5ShGB RpbmctbGVm jEprDM5qAJSuqgglNCSyeV 9jGKJaD7y8QvPfAiW2JJju D5TiEDIczmbvKs46eG8cHu DuBhC5ZDps B5CixlV1GLNjcWAeKBmuSF Z3P40ev7N0GXDqLBNeDIY3 sWQ5pJ5peEzurvqyhXHxxW sgdmVydGlj FIqqYXifI674WPVqeCydKe NvZGluZyBEYXRlOiAgMDQv MjYvMjAyMzwvdGQ+PHRkIH B2sFvtQLFm gIRwAVzsYs7ucFffhUseLX 1lUIYtlusdZORiqG4tCQXv wXCnfEgvOP1bDDXfcviby5 90RcCoJMR6 VJNulHCqV8XvfM9rQbCeSO KsLLXeX0WnwGYoNJlyJ164 XOllYaT0RBHbuiNeO0LdTE FsaWduOiB0 j7L7Kp2Ys0HobpdqK7SsqJ StLzBrWwbxABr3F7EyFiid dHI+KB30KFNjSN78TGa8EJ G5qTyrDBom VLJgY8DobH8rBoDcXVWnHB RkOyc+PHRhYmxlIHdpZHRo DGfrTEMuRrKtoDhjDP2uDj 9yZGVyLWNv iBfdqFVfDjPcz3ihDSBiSZ mrAY0zcJedT5DmaAL5WYOn w2z5Pu08N34xM3FurII+PG AxgCV6hEZ6 mK0nRmUpHmL6GWdeW248Nb IszZZlRfylo4szk7jznLo0 KoQ5QIFwwwRpiXecRHP6a6 FeBz91I64d IHdpZHRoPSIxNSUiIHZhbG iydw7doF9fBm2+PGNvbCB3 gTC0xQ2sGhHnQgM4GHabO6 49InRvcCIv Icisy7skb8bwjFa4LhAuRH FaeoCaxUqpFOT1r7WdQd16 W9PrlEyvm4YbOgh5id85dR Eyz7C6uKX9 O2XoHKUxoytapQAagPkgKQ 5oSQIuiwbdHWEryR4qVLXz V0z4RrCcPkY8LIgyO6Iugx T1RUHzeDYv TOJvnCYKeE5knlhcs3lxzc gfBeOdQPWtACt7WWk2XJCh wJqjLvRqPKZ9SuS8GHR3oR WxhO4zhDgx ogpuaP3eWrd+OZE4bKSzxL WUBJ2dHruseAW+PHRkIHN0 dRzaKZhbUJFfjQ7jTRDfP7 t8KkSmCfA0 OMhwO5PwtoQ5NRTrcBDnEX XibGCViD6rwania3dulruu JbLiLBThLUx1XWs9NCVdbV duOiBsZWZ0 KgN8WJA1sPEpbI5onFvtgp wphC5qJti+QmlydGggRGF0 BOz1N1FnVxe5IEVpcQlvZC 0ncGFkZGlu Wt5ufUrwoRjwVN9dWGXswv igi394HjUxu3mqOBVdiGVx LXjqXMC3K45mm9F7JOIuTB OaKHT7rHI5 fN4mlTruwtxstQLinBrnie TreRsiQGsmOCkyL974PNWp gGpxSbBmDCn3W4LoWhm4NW OyxGnwMN6i yPOiCRujGi1cmQcvrIoxIZ 3aCACdldyrf923GfItt1tr OVZxvMRgJSzjUGV5U91vu2 C4FPXiVDAv YML8sNG0tZ5ycJpfslxlsV VmdDsgdmVydGljYWwtYWxp G937KOHweAblXiHubVz1Z0 XdZxz3FSPg fLbsHW4yiPGyJJwzPo2dkM ldvPklYQ1oDIIpbctoz689 GvCsb8yvLHFbvFZoKNsnSF W5B82eh6S7 WWQsVDJzCZC6bFN1fJ9cgK lnbjogbGVmdDsgdmVydGlj TCnsOEmdW378YJTbzVyyVv BhdGllbnQg TNgiIFg8B1CmQykovQE+PC 95FLWvQM01uNCfyTJdd5jt gKx2VrUkPFWaLSP6wVtoED tho5XiMJZi Q80ezQWmw2Q5XQKgpLbisV HhRwYlmXG1dL4kLKwiigrb c2asoifrHfewh5shbp43uX 37C59iINwu ZHRoPSIzMCUiIHZhbGlnbj 4tzX9qYi3+HYJebFJ5hZQ6 dW1lECTlHlF1KIebW861Gf RvcCIvPjxj l5msh3unxSl8MnL1IGVgcy QhqNtbQZR8y4ZiFf59F24i IHdpZHRoPSIyMCUiIHZhbG alwy2tqR1d Ii8+QPXqlWM2mFZ1uS3cCb ZgEjA2GJngL261BpUpdKRc YvqcE04yP8QdjIP+PHRyPj f3PERzzXpf TI1llJGpSMazYt5oIOP4Zc UoTuZxDEubZ5DjWDLgbsci spqnsXM2FHQnOMFceM93Pc 9udDogMTBw vBMRcC7asgvel4zcrqzfBy HaCGIoCJp1MXf9UDKefFvg CwGlTYS2KnF0HCQ9nKGwmM 1hbGlnbjog oV4nK4WlQOCrlxuvOk33sU 7oByCzDsY5ZKdrSng+R1VZ LCBCRVNTSUUgTTwvdGQ+PH OhKSW1mFud HLwvADGjnV5jLHZoQ9r3Me EvKhU3HYevL7SeXWShjvks Vt30hN5cWjSaZmZ7KIdhS6 SwjxS8TNLh sSJiYOluTZF4C08qp4D9CI SfTICuZYI8cCP7wF9baCyu bjogbGVmdDsgdmVydGljYW meYNrlB930 ZWZrpMzyTxPrXsM6FuM8GP I2A8YgHos9NYGjkKmuEE5r eXJmVXhjMj7weExrrNazIV 4wNTBpbjtw DDGhtU2hSHTlzVYzqZnnBX 4hBXWwnalkn842HvEwRZV6 HLSjpHHlS1HbnI5eUlNpYZ AwARVlM7Tr aTRpXNwrA300LNxcReG8XU MdbhJiD3QpHKUmmIooSzN8 t4F2Fv0sKeWKNWWcejlxaZ Q+PHRkIHN0 oBuaJGpwHPVdwU1xGLWeF8 j4TvIiLuR3MTdgK4EpUBPr pouaZt31iF9wKyWiNwQ3XG ncU5QjxvX5 ZEPmvMDkGHkyXYT1Y88uz1 U9QUSsWEQyTHI1bDW1rU2p bGlnbjogbGVmdDsgdmVydG ljYWwtYWxp V158SVUvbZztFlVvpZGrYO wvdGQ+AHWvGHK5vRpbIZhu JNKblD2aSPKuO2x3OnSaIc V2YDzbB5Nj YDEyhcclJg17qQ2pXrKjSg R4EYroI9RhmxF8OIJpqBTt VYjtPYM8Y70sb9X5QIMsMV DbECW0hEU0 mH3hlDrbtaeulAQyuCfpvi KmqJyhIDhwTWgoN704RHMn mAqtDuQvQDVaEI0wnAectF Q+CS58wr90 C4LwTqmkGek1KZCsLUX7cR C7oG6jCFJuKTjkh6A8zQI3 F2QozlWnux7ma3exVSJiJN dgI76buEUx f3O8WCTdwGX6NQOrnMaxIp DgrY87Faj+HCEtkAisx9Bh Ekzij9fpp6qdpLj8ThZhYJ IgdmFsaWdu QKW6g0SjZw39Z33mGWfyPK HvYWYrUNFoQCAbmWujkp4f xS0oMw9+QDKsiHQ2xNV4oV 6fPaImLtE5 DXkwV198HcSjbNJvLfpgp1 stn9lbgHb4EgTnTLAumwMt aYwvNTD0e7KsMy83Q6PggZ itj3OkHdd3 wu25aCBcj7I3vFL5M1IrOI VekxyviWCtqMnmGR8eVIPk mgcvJGAuzP5vVPTvF4m6Xb CwYdI6RVbj H4GdxkC9BVPzmNXjCOOugW WRoK7kzwrtk4tsunkmRlPc YERlYHo1IVu5VNBxjXdwMv YtORZ9DsZ6 SSC1zWNhyK5ykPhphevjkI 9wOyc+AQl5b4atjAZhIQ6f hYX5TE19BW68jVHyz3L8eW B5T8MrQCBh ebrergudgBB7DJKxKQRgzF 55Ma4tfAebPv7cCOKvIDJ5 RFPfqUQuW7NwuW7jLhCrXC EdPELyM8Pv wAUuVFelD879EHqaKkK0XM FdgwEcW2SjGUXtvNxqDcL4 b9G0Eg0ODM30DF55PC25lK Kkz3M5vVL2 P5WdNKRhurhvdwfhcQO3LI OtEVLraN30Ds6ufUzpGn1a FQYqYUS6HEAmuWDvG6RddQ 9yOiAjMDAw KQPgY4RfhLMfDVvzO752JB pwIgE4BGQwdhWtT5RcOJUy aZhyUnG2s0N2Iu3FEv40XE 23YD74nYSk q4X8eGY5I2VnKIOoshfuqy ppbFL5WULtQDPwdL77Xf9n qRgwFm0wXHZrXLN3OUBttR TbS8NhtK4a OkLwOPSlZYHqU6ZtwBRqYQ vqY338IGqsLcO4YHYcozDs N5AtNJCroQroQwW8t2B0Vb 8TSTisean1 F5MoNigngLR+AW93LESiIM 02kVKurQZgs9seeZw8LcEr BXMzRWG8fAgfOEkzf0TpCQ RiU85veXSk p1F8VFTh (more content not included)... Normal [facility] Consent for Treatmenton 05-17 Consent for Treatment [id number] 0CD:[address] [facility] Discharge Instructionson Discharge Instructions [id number] 0CD:[address] [facility] ED Clinical Summaryon 2022 ED Clinical Summary [place] [id number] ED Clinical Summary Person Information Name: ABBEY GARCIA [facility]rell/[facility] Age: 32 Years : 1990 Sex: Female Language: Burmese PCP: Jaquan Paula Marital Status: Phone: [phone] Visit Id: Visit Reason: Syncope/Near syncope; Nausea; Chest pain; CP, PASSED OUT YESTERDAY, NAUSEA Speciality: Acuity: 3 Enc Type: Emergency Med Service: Emergency Arrival: 06/10/2022 12:29:50 Discharge: 06/10/2022 17:46:58 LOS: 000 05:17 Checkin: 06/10/2022 12:29:50 Checkout: 06/10/2022 17:46:58 Dispo Type: Home (Routine DC) EVENTS: Event Name Event Status Request Date/Time Start Date/Time Complete Date/Time Arrive Complete 06/10/2022 12:29:50 06/10/2022 12:29:50 06/10/2022 12:29:50 Document Home Meds Request 06/10/2022 12:29:50 Triage Complete 06/10/2022 12:29:50 06/10/2022 12:37:32 06/10/2022 12:37:32 Bed Assign Complete 06/10/2022 12:31:43 06/10/2022 12:31:43 06/10/2022 12:31:43 Dr Exam Complete 06/10/2022 12:31:43 06/10/2022 12:34:18 06/10/2022 12:34:18 RN Exam Complete 06/10/2022 12:31:43 06/10/2022 12:55:04 06/10/2022 12:55:04 EKG Complete 06/10/2022 12:32:40 06/10/2022 12:37:45 Registration Complete 06/10/2022 12:34:18 06/10/2022 12:44:43 06/10/2022 12:44:43 Dr Exam Complete 06/10/2022 12:34:31 06/10/2022 12:34:31 06/10/2022 12:34:31 Pending Labs Request 06/10/2022 12:39:50 Lab Complete 06/10/2022 12:39:51 06/10/2022 13:18:38 Meds Admin Complete 06/10/2022 12:39:51 06/10/2022 12:43:55 Patient Care Request 06/10/2022 12:39:51 RT Request 06/10/2022 12:39:51 X-Ray Complete 06/10/2022 12:39:51 06/10/2022 13:04:32 06/10/2022 13:24:39 Reg Complete Request 06/10/2022 12:44:43 Reg Bed Request Complete 06/10/2022 12:44:43 06/10/2022 12:44:43 06/10/2022 12:44:43 Pending Labs Complete 06/10/2022 13:04:13 06/10/2022 13:04:13 06/10/2022 13:18:39 Lab Complete 06/10/2022 13:04:13 06/10/2022 13:04:13 06/10/2022 13:18:39 Pending Labs Complete 06/10/2022 13:09:54 06/10/2022 13:09:54 06/10/2022 13:10:01 Lab Complete 06/10/2022 13:09:55 06/10/2022 13:09:55 06/10/2022 13:10:01 Pending Labs Cancel 06/10/2022 13:11:22 06/10/2022 13:18:57 Lab Cancel 06/10/2022 13:11:22 06/10/2022 13:17:46 Pending Labs Complete 06/10/2022 13:17:57 06/10/2022 13:17:57 06/10/2022 13:55:26 Lab Complete 06/10/2022 13:17:57 06/10/2022 13:17:57 06/10/2022 13:55:26 Pending Labs Complete 06/10/2022 13:19:10 06/10/2022 13:19:10 06/10/2022 13:37:03 Wet Read Request 06/10/2022 13:24:39 Meds Admin Complete 06/10/2022 13:43:16 06/10/2022 14:19:56 Meds Admin Complete 06/10/2022 16:54:31 06/10/2022 17:20:00 Pending Labs Complete 06/10/2022 17:02:34 06/10/2022 17:02:34 06/10/2022 17:02:34 Discharge Complete 06/10/2022 17:05:52 06/10/2022 17:47:06 06/10/2022 17:47:06 Transfer Complete 06/10/2022 17:47:06 06/10/2022 17:47:06 06/10/2022 17:47:06 ADDRESS: [address] [place] [phone] PHYS DOC NOTES: MEDICAL INFORMATION: Prescriptions Given: Medications to Continue Taking That Have Changed [id number], [address], [place] [id number], [phone] START: promethazine (promethazine 12.5 mg oral tablet) 1 Tablets By Mouth every 4 hours. Refills: 0. Other Medications START: promethazine (promethazine 25 mg Tab) 1 Tablets By Mouth every 6 hours as needed as needed for nausea/vomiting. Refills: 0. START: promethazine (promethazine 25 mg Tab) 1 Tablets By Mouth every 6 hours as needed as needed for nausea/vomiting. Refills: 0. Medications to Continue with No Changes Other Medications acetaminophen-codeine (acetaminophen-codeine 300 mg-15 mg oral tablet) 1 Tablets By Mouth 2 times a day. Refills: 0. acetaminophen-oxycodon e (acetaminophen-oxycodo ne 325 mg-5 mg Tab) 1 Tablets By Mouth every 4 hours as needed for pain. Refills: 0. dicyclomine (Bentyl 10 mg Cap) 1 Capsules By Mouth 4 times a day for 10 Days. Refills: 0. dicyclomine (Bentyl 10 mg Cap) 2 Capsules By Mouth 4 times a day. Refills: 0. doxycycline (doxycycline hyclate 100 mg Cap) 1 Capsules By Mouth 2 times a day. Refills: 0. duloxetine (Cymbalta) 60 Milligram By Mouth 2 times a day. escitalopram (Lexapro 10 mg Tab) 1 Tablets By Mouth every day. escitalopram (Lexapro 5 mg oral tablet) 1 Tablets By Mouth every day. gabapentin (gabapentin 300 mg Cap) 1 cap(s) Oral daily x 1 day, 1 tab BID x 1 day, then 1 tab TID thereafter.. Refills: 0. iron polysaccharide (ProFe) 180 Milligram By Mouth every day. levothyroxine 75 Microgram By Mouth every day. levothyroxine (levothyroxine 125 mcg (0.125 mg) Tab) 1 Tablets By Mouth every day. Refills: 0. liothyronine (liothyronine 5 mcg Tab) 5 Microgram By Mouth every day. Refills: 1. meclizine (Antivert 12.5 mg Tab) 1 Tablets By Mouth 3 times a day as needed for dizziness. Refills: 0. metformin 1,000 Milligram By Mouth 2 times a day. mirtazapine (mirtazapine 15 mg Tab) 1 Tablets By Mouth once a day (at bedtime). mirtazapine (mirtazapin (more content not included)... Normal [place] [facility] ED Patient Education Noteon 06-10-2022 ED Patient Education Note Neurology Syncope, Adult Syncope refers to a condition in which a person temporarily loses consciousness. Syncope may also be called fainting or passing out. It is caused by a sudden decrease in blood flow to the brain. This can happen for a variety of reasons. Most causes of syncope are not dangerous. It can be triggered by things such as needle sticks, seeing blood, pain, or intense emotion. However, syncope can also be a sign of a serious medical problem, such as a heart abnormality. Other causes can include dehydration, migraines, or taking medicines that lower blood pressure. Your health care provider may do tests to find the reason why you are having syncope. If you faint, get medical help right away. Call your local emergency services (911 in the [place] Follow these instructions at home: Pay attention to any changes in your symptoms. Take these actions to stay safe and to help relieve your symptoms: Knowing when you may be about to faint ? Signs that you may be about to faint include: ? Feeling dizzy, weak, light-headed, or like the room is spinning. ? Feeling nauseous. ? Seeing spots or seeing all white or all black in your field of vision. ? Having cold, clammy skin or feeling warm and sweaty. ? Hearing ringing in the ears (tinnitus). ? If you start to feel like you might faint, sit or lie down right away. If sitting, put your head down between your legs. If lying down, raise (elevate) your feet above the level of your heart. ? Breathe deeply and steadily. Wait until all the symptoms have passed. ? Have someone stay with you until you feel stable. Medicines ? Take qqfh-qyr-jrwkrpl and prescription medicines only as told by your health care provider. ? If you are taking blood pressure or heart medicine, get up slowly and take several minutes to sit and then stand. This can reduce dizziness and decrease the risk of syncope. Lifestyle ? Do not drive, use machinery, or play sports until your health care provider says it is okay. ? Do not drink alcohol. ? Do not use any products that contain nicotine or tobacco. These products include cigarettes, chewing tobacco, and vaping devices, such as e-cigarettes. If you need help quitting, ask your health care provider. ? Avoid hot tubs and saunas. General instructions ? Talk with your health care provider about your symptoms. You may need to have testing to understand the cause of your syncope. ? Drink enough fluid to keep your urine pale yellow. ? Avoid prolonged standing. If you must stand for a long time, do movements such as: ? Moving your legs. ? Crossing your legs. ? Flexing and stretching your leg muscles. ? Squatting. ? Keep all follow-up visits. This is important. Contact a health care provider if: ? You have episodes of near fainting. Get help right away if: ? You faint. ? You hit your head or are injured after fainting. ? You have any of these symptoms that may indicate trouble with your heart: ? Fast or irregular heartbeats (palpitations). ? Unusual pain in your chest, abdomen, or back. ? Shortness of breath. ? You have a seizure. ? You have a severe headache. ? You are confused. ? You have vision problems. ? You have severe weakness or trouble walking. ? You are bleeding from your mouth or rectum, or you have black or tarry stool. These symptoms may represent a serious problem that is an emergency. Do not wait to see if your symptoms will go away. Get medical help right away. Call your local emergency services (911 in the [place] Do not drive yourself to the hospital. Summary ? Syncope refers to a condition in which a person temporarily loses consciousness. Syncope may also be called fainting or passing out. It is caused by a sudden decrease in blood flow to the brain. ? Signs that you may be about to faint include dizziness, feeling light-headed, feeling nauseous, sudden vision changes, or cold, clammy skin. ? Even though most causes of syncope are not dangerous, syncope can be a sign of a serious medical problem. Get help right away if you faint. ? If you start to feel like you might faint, sit or lie down right away. If sitting, put your head down between your legs. If lying down, raise (elevate) your feet above the level of your heart. This information is not intended to replace advice given to you by your health care provider. Make sure you discuss any questions you have with your health care provider. Document Revised: 06/12/2021 Document Reviewed: 06/12/2021 [employer] Patient Education ? 2022 [employer] Pulmonary Medicine Nonspecific Chest Pain, Adult Chest pain is an uncomfortable, tight, or painful feeling in the chest. The pain can feel like a crushing, aching, or squeezing pressure. A person can feel a burning or tingling sensation. Chest pain can also be felt in your back, neck, jaw, shoulder, or arm. This pain can be worse when you move, sneeze, or take a deep breath. Chest pain (more content not included)... Normal [facility] ED Patient Summaryon 023 ED Patient Summary [address] [address] Patient Discharge Instructions Person Information Name: ABBEY GARCIA Age: 32 Years Arrival Date: 06/10/2022 12:29:50 Discharge Diagnosis: Chest pain; Dizziness; Nausea; Syncope Primary Care Physician: Jaquan Paula Provider Information Primary Provider: Ashutosh Albright M.D. Advanced Casting Director:Rui Joyner PA-C The exam and treatment you received in the Emergency Department were for an urgent problem and are not intended as complete care. It is important that you follow up with a doctor, nurse practitioner, or physician?s phlebotomy lab assistant for ongoing care. If your symptoms become worse or you do not improve as expected and you are unable to reach your usual health care provider, you should return to the Emergency Department. We are available 24 hours a day. ABBEY GARCIA has been given the following list of patient education materials, prescriptions and follow-up instructions: Follow-up Instructions: With: Address: When: Raulito Jack [address] [place] [id number] [phone] Business (1) In 3 days 06/13/2022 Comments: Schedule event loop recorder as well as echocardiogram with central scheduling and then follow-up with casting tester Dr. Jack With: Address: When: Jaquan Morrow [address] [place] [id number] Business (1) In 3 days 06/13/2022 Comments: Call the office of your primary care doctor to arrange for follow-up within the above-stated timeframe. Follow-up with your primary care doctor about this ED visit. You should review your labs, imaging, and diagnoses from this ED visit with your primary care physician. If you were prescribed medications you should discuss possible side-effects and drug interactions with your pharmacist. Call 911 or go to the nearest Emergency Department if you develop any new or worsening symptoms. In the event that this physician does not participate in your insurance network, please consult with your insurance company to find a nearby participating provider. Patient Education Materials: Syncope, Adult; Nonspecific Chest Pain, Adult A MESSAGE TO ALL PATIENTS REGARDING OPIOIDS PRESCRIPTION OPIOIDS: WHAT YOU NEED TO KNOW Prescription opioids can be used to help relieve ygtymvld-cq-chmgsg pain and are often prescribed following a surgery or injury, or for certain health conditions. These medications can be an important part of the treatment but also come with serious risks. It is important to work with your healthcare provider to make sure you are getting the safest, most effective care. WHAT ARE THE RISKS AND SIDE EFFECTS OF OPIOID USE? Prescription opioids carry serious risks of addiction and overdose, especially with prolonged use. An opioid overdose, often marked by slowed breathing, can cause sudden . The use of prescription opioids can have a number of side effects as well, even when taken as directed: ? Tolerance?meaning you might need to take more of the medication for the same pain relief ? Physical dependence?meaning you have symptoms of withdrawal when a medication is stopped ? Increased sensitivity to pain ? Constipation ? Nausea, vomiting, and dry mouth ? Sleepiness and dizziness ? Confusion ? Depression ? Low levels of testosterone that can result in lower sex drive, energy, and strength ? Itching and sweating RISKS ARE GREATER WITH: ? History of drug misuse, substance use disorder, or overdose ? Mental health conditions (such as depression or anxiety) ? Sleep apnea ? Older age (65 years and older) ? Avoid alcohol while taking prescription opioids. Also, unless specifically advised by your health care provider, medications to avoid include: ? Benzodiazepines (such as Xanax or Valium) ? Muscle relaxants (such as Soma or Flexeril) ? Hypnotics (such as Ambien or Lunesta) ? Other prescription opioids KNOW YOUR OPTIONS Talk to your health care provider about ways to manage your pain that don?t involve prescription opioids. Some of these options may actually work better and have fewer risks and side effects. Options may include: ? Pain relievers such as acetaminophen, ibuprofen, and naproxen ? Some medication that are also used for depression or seizures ? Physical therapy and exercise ? Cognitive behavioral therapy, a psychological, goal-directed approach, in which patients learn how to modify physical, behavioral, and emotional triggers of pain and stress. IF YOU ARE PRESCRIBED OPIOIDS FOR PAIN: ? Never take opioids in greater amounts or more often than prescribed. ? Follow up with your primary health care provider. o Work together to create a plan on how to manage your pain. o Talk about ways to help manage your pain that don?t involve prescription opioids. o Talk about any and all concerns and side effec (more content not included)... Normal [facility] Family Medicine Office/Clini c Noteon 06-10-2022 Family Medicine Office/Clinic Note Chief Complaint ER follow up, Passed out at work --- Pt states that she has been having LLQ pain. Pt states tthat the pain had gotten worse after her f/u appointments for the pain. Pt states that she got hot and dizzy at work. Pt is still having pain and is getting worse History of Present Illness pt presents today for ER follow up. She passed out at work yesterday and is very dizzy and short of breath today. she also has severe left lower quadrant pain and left sided mid back pain. Recent diagnosis of lyme disease Review of Systems PHQ Score Initial Depression Screen Score: 0 ROS - Provider Constitutional: no fever, no chills, no sweats, no weakness. Skin: no Jaundice, no rash, no lesions, no petechiae. ENMT: no ear pain, no sore throat, no congestion, no hoarseness,no swelling of lymph nodes Respiratory: yes shortness of breath, no cough, yes orthopnea, no wheezing. Cardiovascular: yes chest pain, no palpitations, no edema. Gastrointestinal: no nausea, no vomiting, yes diarrhea, no GI bleeding. Genitourinary: no dysuria, no hematuria, no discharge, no pain. low left quad pain, left mid back pain Musculoskeletal: yes back pain, no trauma. multiple joint pain Neurologic: no headache, yes dizziness, yes numbness of fingers and toes, yes weakness. Psychiatric: noDepressionno Anxietyno sleeping problems, no Suicidal thoughts or ideationsno mood swings Additional ROS info: Except as noted in the above Review of Systems and in the History of Present Illness all other systems have been reviewed and are negative or noncontributory. Physical Exam Vitals & Measurements HR: 74(Peripheral) RR: 18 BP: 142/120(Sitting) BP: 164/120(Standing) BP: 168/120(Supine) SpO2: 100% HT: 66 in HT: 168 cm WT: 83.65 kg WT: 184.03 lb BMI: 29.64 General: alert, no acute distress Skin: warm, dry Head: no trauma, normocephalic Neck: Trachea midline, thyroid not enlarged Eye: normal conjunctiva, sclera clear ENMT: oral mucosa moist, yes Cardiovascular: regular rate and rhythm, normal Respiratory: respirations non labored short of breath when walking to waiting room Chest wall: no deformity. Gastrointestinal: soft, non distended, no tenderness Back: No tenderness Extremities: no edema, no wound Neurological: awake, alert, oriented, speech normal Psychiatric: cooperative, affect appropriate for age Assessment/Plan 1. Dizziness (R42: Dizziness and giddiness) pt presents today with severe dizziness. She had a syncopal episode at work yesterday and was taken by EMS to [facility]. They gave her IV fluids and CT of Pelvis and sent her home. Her BP is elevated today, she is dizzy, SOB and c/o left sided chest pain. She was recently diagnosed with Lyme disease and treated with doxycycline. Provider is very concerned that the lyme disease has caused carditis. Pt is really not wanting to go to ER because she was treated horribly last night. We called cardiology and scheduled her with Dr. Jack tomorrow. As patient starts to walk out to waiting room she gets severely dizzy and short of breath and needs to sit down. Provider then discussed that it would really be in her best interest if she went to the ER. [facility] [place] nurse was notified of pt symptoms and they are preparing for her arrival. Ordered: [facility] Internal Ambulatory Referral 2. Shortness of breath (R06.02: Shortness of breath) pt becomes short of breath just walking to waiting room Ordered: [facility] Internal Ambulatory Referral 3. Left-sided chest pain (R07.9: Chest pain, unspecified) pt states when she is short of breath she does get left sided chest pain into her shoulder Ordered: [facility] Internal Ambulatory Referral 4. Left lower quadrant pain (R10.32: Left lower quadrant pain) pt has small ovarian cyst and was seen by Dr. Moreno on Wednesday. he is planning to do exploratory lap to look at cyst and for adhesions Ordered: [facility] Internal Ambulatory Referral 5. Mid back pain on left side (M54.9: Dorsalgia, unspecified) severe mid left sided pain over kidney. pt denies urinary symptoms Renal u/s ordered Ordered: [facility] Internal Ambulatory Referral [facility] Internal Ambulatory Referral US Renal 6. Lyme disease (A69.20: Lyme disease, unspecified) recently tested positive for lyme disease on Western Blot test. results scanned into her chart. 7. Syncopal episodes (R55: Syncope and collapse) pt had a syncopal episode at work yesterday. 8. Diarrhea (R19.7: Diarrhea, unspecified) diarrhea started about 6 hours ago Ordered: [facility] Internal Ambulatory Referral 9. Black tarry stools (K92.1: Melena) needs referral to GI. was supposed to follow up with GI at [facility] but did not do so Ordered: [facility] Internal Ambulatory Referral 10. Acid reflux (K21.9: Gastro-esophageal reflux disease without esophagitis) GI referral Ordered: [facility] Internal Ambulatory Referral 11. History of gastric bypass (Z98.84: Bariatric surgery status) GI referral Ordered: [facility] Inte (more content not included)... Normal [facility] Comment on above: Result Comment: Elec tronically Signed By: Jaquan Paula\.br\Date and Time Signed: 06/10/22 13:51 EDT HEMATOLOGYOrdered By: SYSTEM SYSTEM on 06-10-2022 Basophils/100 WBC (Bld) 0.8 % Normal 0.0 - 2.0 % [facility] Basophils/Leukocytes Auto (Bld) [Pure # fraction] 0.0 E9/L Normal 0.0 - 0.2 E9/L [facility] Eosinophils/100 WBC (Bld) 2.2 % Normal 0.0 - 8.0 % [facility] Eosinophils/Leukocyte s Auto (Bld) [Pure # fraction] 0.1 E9/L Normal 0.0 - 0.5 E9/L [facility] Lymphocytes/100 WBC (Bld) 33.1 % Normal 14.0 - 50.0 % [facility] Lymphocytes/Leukocyte s Auto (Bld) [Pure # fraction] 1.9 E9/L Normal 1.0 - 4.0 E9/L [facility] Monocytes/100 WBC (Bld) 5.4 % Normal 4.0 - 14.0 % [facility] Monocytes/Leukocytes Auto (Bld) [Pure # fraction] 0.3 E9/L Normal 0.2 - 1.0 E9/L [facility] Neutrophils/100 WBC (Bld) 58.5 % Normal 36.0 - 75.0 % [facility] Neutrophils/Leukocyte s Auto (Bld) [Pure # fraction] 3.4 E9/L Normal 2.0 - 7.5 E9/L [facility] HEMATOLOGYOrdered By: Edilberto Meng on 06-10-2022 Erythrocyte distribution width (RBC) [Ratio] 13.9 % Normal 10.9 - 14.2 % [facility] Hematocrit (Bld) [Volume fraction] 40.9 % Normal 34.0 - 46.0 % [facility] Hemoglobin (Bld) [Mass/Vol] 13.9 g/dL Normal 12.0 - 16.0 gm/dL [facility] MCH (RBC) [Entitic mass] 30.6 pg Normal 27.0 - 34.0 pg [facility] MCHC (RBC) [Mass/Vol] 34.0 g/dL Normal 31.4 - 36.0 gm/dL [facility] MCV (RBC) [Entitic vol] 89.9 fL Normal 80.0 - 100.0 fL [facility] Platelet mean volume (Bld) [Entitic vol] 9.1 fL Normal 6.4 - 10.8 fL [facility] Platelets (Bld) [#/Vol] 249.0 E9/L Normal 150.0 - 500.0 E9/L [facility] RBC (Bld) [#/Vol] 4.6 E12/L Normal 4.3 - 5.9 E12/L [facility] Sed Rate Automated 8 mm/h Normal 0 - 34 mm/hr [facility] WBC corrected for nucl RBC Auto (Bld) [#/Vol] 5.8 E9/L Normal 4.0 - 11.0 E9/L [facility] Lab Reportson 06-10-2022 Lab Reports [id number]#1. 00CD:[address] [facility] Lab Reports [id number]#1.0 0CD:[address] [facility] PT & PTTon 06-10-2022 aPTT Coag (PPP) [Time] 34.8 second(s) Normal 25.1-36.5 [facility] Comment on above: Result Comment: Para meter 15 days - 4 weeks 1 - 5 months 6 - 11 months 1 - 5 years 6 - 10 years 11 - 17 years PTT Mean: 35.4 (27.6-45.6) Mean: 33.5 (24.8-40.7) Mean: 32.4 (25.1-40.7) Mean: 31.6 (24.0-39.2) Mean: 31.6 (26.9-38.7) Mean: 31.0 (24.6-38.4) Pediatric Reference ranges were obtained from a study by Stanton Lott et al. prepared from 1437 samples obtained at 7 different centers using the same coagulation reagent and instrumentation as [facility]. Currently there are no coagulation studies available worldwide for children to 14 days, and no normal ranges. Heparin therapeutic range (represented by Anti-Factor Xa activity of 0.2 - 0.4 U/mL) corresponds to PTT of 56.6 - 109.0 sec. Performed By: #### 2 [id number], [id number], 5690215, 2721341, 76135694, 91741115, 63843133, [id number] #### [facility] [address] [place] [address] INR Coag (PPP) [Relative time] 1.1 {INR} Invalid Interpretation Code [facility] Comment on above: Result Comment: INR results are specifically intended to assess patients stabilized on long-term Anticoagulation therapy suggested INR?s ?Less Intensive Anticoagulation? 2.0 ? 3.0 Conventional Range 3.0 ? 4.5 Performed By: #### 2 [id number], [id number], 7859113, 5881572, 81063495, 86991467, 39705931, 8526969 #### [facility] [address] [place] [address] PT Coag (PPP) [Time] 12.6 second(s) High 9.4-12.5 [facility] Comment on above: Result Comment: 15 d ays - 4 weeks 1 - 5 months 6 -11 months 1- 5 years 6-10 years 11 -17 years Mean: 11.2 (9.5-12.6) Mean: 11.0 (9.7-12.8) Mean: 11.0 (9.8-13.0) Mean: 11.3 (9.9-13.4) Mean: 11.7 (10.0-14.6) Mean: 11.8 (10.0 - 14.1) Pediatric Reference ranges were obtained from a study by Stanton Lott et al. prepared from 1437 samples obtained at 7 different centers using the same coagulation reagent and instrumentation as [facility]. Currently there are no coagulation studies available worldwide for children to 14 days, and no normal ranges. Performed By: #### 2 [id number], [id number], 1684430, 5791599, 18846720, 31671160, 54176300, 6841912 #### [facility] [address] [place] [address] Physician Orderon 06-10-2022 Physician Order [id number]#1.0 0CD:[address] [facility] Pre-Arrival Noteon 3 Pre-Arrival Note Pre-Arrival Summary Name: Abbey Garcia, Current Date: 06/10/2022 12:31:34 EDT Gender: Female Date of : 1990 Age: 32 years Pre-Arrival Type: EMS ETA: 06/10/2022 12:27:00 EDT Primary Care Physician: Presenting Problem: dizzy, SOB, syncope yesterday Pre-Arrival User: Rocio Lerner RN Referring Source: Location: [place] Completion Date/Time: 06/10/2022 11:58:00 [facility] Emergency Department Pre-Hospital Report Form Vital Signs: Pre-Hospital Report: Treatment in Route: Response to Treatment: Misc. Issues: Normal [facility] Provider Letteron 06-10-2022 Provider Letter June 10, 2022 ABBEY GARCIA [id number] [address] ABBEY GARCIA 1990 To Whom It May Concern, Please excuse above patient from work. Date of Illness: From: 10 June 2022 To: 12 June 2022 May Return to Work On: 16 May 2022 Restrictions: None Comments: Please call the office with any questions Sincerely, [place] [address] [facility] RAD - CT Reporton 06-10-2022 RAD - CT Report [id number]#1. 00CD:[address] [facility] RAD - Ultrasound Reporton RAD - Ultrasound Report [id number]#1.0 0CD:[address] [facility] Sed Rate Automatedon 023 Sed Rate Automated 8 mm/hr Normal 0-34 [facility] Comment on above: Performed By: #### 2 [id number], 71278628, 1549004, 7437841, 70740843, 49956089, 77339663, 1262795 #### [facility] [address] [place] [address] Troponin 0 Hr.on 06-10-2022 Troponin I.cardiac [Mass/Vol] ng/mL Low 10.10-27.10 [facility] Comment on above: Result Comment: The 95% CI (Confidence Interval) PPV (Positive Predictive Value) for myocardial infarction in females is 38 pg/mL, in males 51 pg/mL. The results should be used in conjunction with clinical conditions of myocardial infarction. ([employer] High Sensitivity Troponin I Instructions For Use, [employer], September 2017) Performed By: #### 2 748514, 03058512, 2001996, 6039458, 91811374, 50680133, 46352461, 2070146 #### [facility] [address] [place] [address] Troponin 3 Hr.on 06-10-2022 Troponin I.cardiac [Mass/Vol] ng/mL Low 10.10-27.10 [facility] Comment on above: Result Comment: The 95% CI (Confidence Interval) PPV (Positive Predictive Value) for myocardial infarction in females is 38 pg/mL, in males 51 pg/mL. The results should be used in conjunction with clinical conditions of myocardial infarction. ([employer] High Sensitivity Troponin I Instructions For Use, [employer], September 2017) Performed By: #### 2 057767, 16009037, 3596031, 5773668, 06163648, 75505458, 81764556, 8234924 #### [facility] [address] [place] [address] XR Chest Single Viewon 06-10 XR Chest Single View Exam Date/Time: 06/10/2022 13:24 EDT Reason for Exam: Chest pain Report IMPRESSION: NO EVIDENCE OF ACTIVE CHEST DISEASE. CLINICAL HISTORY: Chest pain. COMMENT: AP portable. The heart is normal in size. The mediastinum is unremarkable. The lungs appear clear. No infiltration nor pleural effusion is evident. Ordering Provider: Rui Joyner FINAL REPORT Dictated: 06/10/2022 1:52 pm Moncho Pascual M.D. Signed (Electronic Signature): 06/10/2022 1:52 pm Signed by: Moncho Pascual M.D. Transcribed by: CHANEL Technologist: EDU Technical Comments Radiation Dose: Ka,r in mGy = na DAP = na Normal [facility] eGFRon 06-10-2022 GFR/1.73 sq M.predicted among non-blacks MDRD (S/P/Bld) [Vol rate/Area] 100 mL/min/1.73 m2 Normal >=59 [facility] Comment on above: Order Comment: Order added by Discern Expert. Result Comment: Electromechanical Inspector yrn kidney disease could be indicated at eGFR's of less than 60 mL/min/1.73m2. Kidney failure is indicated at less than 15 mL/min/1.73m2. Performed By: #### 2 438251, [id number], 7491322, 0814352, 24176564, 37177157, 45753201, 0321054 #### [facility] [address] [place] [address] AMYLASEon 06-09-2022 Amylase [Catalytic activity/Vol] 41 U/L Normal 25-115 [facility] Comment on above: Performed By: #### G RUBIN, LIPID #### [facility] [address] [place] [address] Dr. Stephan Tavares CBC AUTO DIFFon 06-09-2022 BASO # 0.0 103/ul Normal 0.0-0.1 [facility] Comment on above: Performed By: #### G RUBIN, LIPID #### [facility] [address] [place] [address] Dr. Stephan Tavares Basophils/100 WBC (Bld) 0.7 % Normal 0.2-2.0 [facility] Comment on above: Performed By: #### G RUBIN, LIPID #### [facility] [address] [place] [address] Dr. Stephan Tavares EO # 0.1 103/ul Normal 0.0-0.7 [facility] Comment on above: Performed By: #### G RUBIN, LIPID #### [facility] [address] [place] [address] Dr. Stephan Tavares Eosinophils/100 WBC (Bld) 1.5 % Normal 0.9-7.0 [facility] Comment on above: Performed By: #### G RUBIN, LIPID #### [facility] [address] [place] [address] Dr. Stephan Tavares Erythrocyte distribution width (RBC) [Ratio] 13.1 % Normal 11.0-15.0 [facility] Comment on above: Performed By: #### G RUBIN, LIPID #### [facility] [address] [place] [address] Dr. Stephan Tavares Hematocrit (Bld) [Volume fraction] 43.2 % Normal 36.0-48.0 [facility] Comment on above: Performed By: #### G RUBIN, LIPID #### [facility] [address] [place] [address] Dr. Stephan Tavares Hemoglobin (Bld) [Mass/Vol] 14.6 g/dL Normal 12.0-16.0 [facility] Comment on above: Performed By: #### G RUBIN, LIPID #### [facility] [address] [place] [address] Dr. Stephan Tavares IG # 0.01 10e3/ul Normal 0.00-0.03 [facility] Comment on above: Performed By: #### G RUBIN, LIPID #### [facility] [address] [place] [address] Dr. Stephan Tavares IG % 0.2 % Normal 0.0-0.5 [facility] Comment on above: Performed By: #### G RUBIN, LIPID #### [facility] [address] [place] [address] Dr. Stephan Tavares LYMPH # 2.1 103/ul Normal 1.2-3.8 [facility] Comment on above: Performed By: #### G RUBIN, LIPID #### [facility] [address] [place] [address] Dr. Stephan Tavares Lymphocytes/100 WBC (Bld) 39.1 % Normal 20.5-60.0 [facility] Comment on above: Performed By: #### G RUBIN, LIPID #### [facility] [address] [place] [address] Dr. Stephan Tavares MANUAL DIFF REQ NO Normal [facility] Comment on above: Performed By: #### G RUBIN, LIPID #### [facility] [address] [place] [address] Dr. Stephan Tavares MCH (RBC) [Entitic mass] 30.2 pg Normal 26.7-34.0 [facility] Comment on above: Performed By: #### G RUBIN, LIPID #### [facility] [address] [place] [address] Dr. Stephan Tavares MCHC (RBC) [Mass/Vol] 33.8 g/dL Normal 29.9-35.2 [facility] Comment on above: Performed By: #### G RUBIN, LIPID #### [facility] [address] [place] [address] Dr. Stephan Tavares MCV (RBC) [Entitic vol] 89.3 fL Normal 81.0-99.0 [facility] Comment on above: Performed By: #### G RUBIN, LIPID #### [facility] [address] [place] [address] Dr. Stephan Tavares MONO # 0.3 103/ul Normal 0.3-0.8 [facility] Comment on above: Performed By: #### G RUBIN, LIPID #### [facility] [address] [place] [address] Dr. Stephan Tavares Monocytes/100 WBC (Bld) 5.2 % Normal 1.7-12.0 [facility] Comment on above: Performed By: #### G RUBIN, LIPID #### [facility] [address] [place] [address] Dr. Stephan Tavares NEUT # 2.9 103/ul Normal 1.4-6.5 [facility] Comment on above: Performed By: #### G RUBIN, LIPID #### [facility] [address] [place] [address] Dr. Stephan Tavares Neutrophils/100 WBC (Bld) 53.3 % Normal 43.0-75.0 [facility] Comment on above: Performed By: #### G RUBIN, LIPID #### [facility] [address] [place] [address] Dr. Stephan Tavares Platelet mean volume (Bld) [Entitic vol] 10.9 fL Normal 9.5-13.5 [facility] Comment on above: Performed By: #### G RUBIN, LIPID #### [facility] [address] [place], [place] [address] Dr. Stephan Tavares PLT 271 103/ul Normal 150-450 [facility] Comment on above: Performed By: #### G RUBIN, LIPID #### [facility] [address] [place], [place] [address] Dr. Stephan Tavares RBC 4.84 106/ul Normal 4.20-5.40 [facility] Comment on above: Performed By: #### G RUBIN, LIPID #### [facility] [address] [place], [place] [address] Dr. Stephan Tavares WBC 5.4 103/ul Normal 4.0-11.0 [facility] Comment on above: Performed By: #### G RUBIN, LIPID #### [facility] [address] [place], [place] [address] ABD/PELVIS WO CONon 06-09 CT ABD/PELVIS WO CON EXAMINATION: CT ABD/PELVIS WO CON HISTORY: UNSPECIFIED ABDOMINAL PAIN ; left flank pain COMPARISON: No relevant comparison available. TECHNIQUE: Axial, Coronal, and Sagittal images were obtained without and/or with IV contrast as indicated by examination type. Dose reduction techniques were achieved by using automated exposure control and/or adjustment of mA and/or kV according to patient size and/or use of iterative reconstruction technique. FINDINGS: LUNG BASES: No visible pulmonary or pleural disease. LIVER: Stable appearance of several small cysts or hemangiomas. No enlargement, atrophy, suspicious density, or significant focal lesion. BILIARY: Cholecystectomy. PANCREAS: No lesion, fluid collection, or abnormal duct dilatation. SPLEEN: No enlargement or focal lesion. ADRENALS: No mass or enlargement. KIDNEYS: No mass, obstruction, or calcification. BOWEL/MESENTERY: Prior gastric and small bowel surgery. No visible mass, obstruction, or bowel wall thickening. AORTA/VASCULAR: No aneurysm or dissection. RETROPERITONEUM: No mass or adenopathy. LYMPH NODES: No adenopathy. URINARY BLADDER: No visible focal wall thickening, lesion, or calculus. PELVIC ORGANS: No visible mass. Pelvic organs appropriate for patient age. ABDOMINAL WALL: No mass or hernia. BONES: No bony lesion or fracture. OTHER: Negative. IMPRESSION: 1.No acute or suspicious findings to account for patient's symptoms. 2.Prior gastric and small bowel surgery within left upper quadrant, but no obstruction or inflammatory changes. 3. No urinary tract calculi or obstructive uropathy. Electronically authenticated by: ALVERTO PHAM Date: 2022-06-09 16:14 Normal [facility] ER URINE PROFILEon 3 Bilirubin Ql (U) Negative Normal NEGATIVE [facility] Comment on above: Performed By: #### G RUBIN, LIPID #### [facility] [address] [place] [address] [address] Stephan Tavares Clarity (U) CLEAR Normal CLEAR [facility] Comment on above: Performed By: #### G RUBIN, LIPID #### [facility] [address] [place] [address] Dr. Stephan Tavares Color (U) LT. YELLOW Normal YELLOW [facility] Comment on above: Performed By: #### G RUBIN, LIPID #### [facility] [address] [place] [address] Dr. Stephan KUMAR A micrscopic examination will be performed if indicated. Normal [facility] Comment on above: Performed By: #### G RUBIN, LIPID #### [facility] [address] [place] [address] [address] Stephan Tavares Glucose Ql (U) Negative Normal NEGATIVE [facility] Comment on above: Performed By: #### G RUBIN, LIPID #### [facility] [address] [place] [address] [address] Stephan Tavares Hemoglobin Ql (U) Negative Normal NEGATIVE [facility] Comment on above: Performed By: #### G RUBIN, LIPID #### [facility] [address] [place] [address] [address] Stephan Tavares Ketones Ql (U) Negative Normal NEGATIVE [facility] [place] Comment on above: Performed By: #### G RUBIN, LIPID #### [facility] [address] [place] [address] Dr. Stephan Tavares LEUKOCYTES Negative Normal NEGATIVE [facility] Comment on above: Performed By: #### G RUBIN, LIPID #### [facility] [address] [place] [address] [address] Stephan Tavares Nitrite Ql (U) Negative Normal NEGATIVE [facility] [place] [facility] Comment on above: Performed By: #### G RUBIN, LIPID #### [facility] [address] [place] [address] Dr. Stephan Tavares pH (U) 7.5 [pH] Normal 5-9 [facility] Comment on above: Performed By: #### G RUBIN, LIPID #### [facility] [address] [place] [address] Dr. Stephan Tavares SPEC GRAVITY 1.015 Normal 1.005-<=1.025 [facility] Comment on above: Performed By: #### G RUBIN, LIPID #### [facility] [address] [place] [address] Dr. Stephan Tavares UA PROTEIN Negative Normal NEGATIVE/ TRACE [facility] Comment on above: Performed By: #### G RUBIN, LIPID #### [facility] [address] [place] [address] Dr. Stephan Tavares UR MICRO IND NOT INDICATED Normal [facility] Comment on above: Performed By: #### G RUBIN, LIPID #### [facility] [address] [place] [address] Dr. Stephan Tavares Urobilinogen Qn (U) 0.2 {Munir'U}/dL Normal 0.2 - 1. 0 [facility] Comment on above: Performed By: #### G RUBIN, LIPID #### [facility] [address] [place] [address] Dr. Stephan Tavares LIPASEon 06-09-2022 Lipase [Catalytic activity/Vol] 120.0 U/L Normal 73.0-393.0 [facility] Comment on above: Performed By: #### G RUBIN, LIPID #### [facility] [address] [place] [address] Dr. Stephan Tavares PROF 14(COMP METB)on 023 Albumin [Mass/Vol] 4.4 g/dL Normal 3.4-5.0 [facility] Comment on above: Performed By: #### G RUBIN, LIPID #### [facility] [address] [place] [address] Dr. Stephan Tavares Albumin/Globulin [Mass ratio] 1.1 {ratio} Normal [facility] Comment on above: Performed By: #### G RUBIN, LIPID #### [facility] [address] [address] [address] Stephan Tavares ALP [Catalytic activity/Vol] 74 U/L Normal 46-116 [facility] Comment on above: Performed By: #### G RUBIN, LIPID #### [facility] [address] [place] [address] [address] Stephan Tavares ALT [Catalytic activity/Vol] 40 U/L Normal 14-59 [facility] Comment on above: Performed By: #### G RUBIN, LIPID #### [facility] [address] [place] [address] Dr. Stephan Tavares Anion gap [Moles/Vol] 16.5 mmol/L Normal [facility] Comment on above: Performed By: #### G RUBIN, LIPID #### [facility] [address] [place] [address] Dr. Stephan Tavares AST [Catalytic activity/Vol] 45 U/L Critically high 15-37 [facility] Comment on above: Performed By: #### G RUBIN, LIPID #### [facility] [address] [place] [address] Dr. Stephan Tavares Bilirubin [Mass/Vol] 0.5 mg/dL Normal 0.2-1.0 [facility] Comment on above: Performed By: #### G RUBIN, LIPID #### [facility] [address] [address] [address] Stephan Tavares Calcium [Mass/Vol] 9.3 mg/dL Normal 8.5-10.1 [facility] Comment on above: Performed By: #### G RUBIN, LIPID #### [facility] [address] [place] [address] Dr. Stephan Tavares Chloride [Moles/Vol] 103 mmol/L Normal 98-107 [facility] Comment on above: Performed By: #### G RUBIN, LIPID #### [facility] [address] [place] [address] Dr. Stephan Tavares CO2 [Moles/Vol] 24.9 mmol/L Normal 21.0-32.0 [facility] Comment on above: Performed By: #### G RUBIN, LIPID #### [facility] [address] [place] [address] Dr. Stephan Tavares Creatinine [Mass/Vol] 0.88 mg/dL Normal 0.55-1.02 [facility] Comment on above: Performed By: #### G RUBIN, LIPID #### [facility] [address] [address] [address] Stephan Tavares EGFR-AF BERMUDIAN >60 Normal >=60 [facility] Comment on above: Performed By: #### G RUBIN, LIPID #### [facility] [address] [place] [address] Dr. Stephan Tavares EGFR-NON AF BERMUDIAN >60 Normal >=60 [facility] Comment on above: Performed By: #### G RUBIN, LIPID #### [facility] [address] [place] [address] Dr. Stephan Tavares Globulin (S) [Mass/Vol] 3.9 g/dL Normal [facility] Comment on above: Performed By: #### G RUBIN, LIPID #### [facility] [address] [place] [address] Dr. Stephan Tavares Glucose [Mass/Vol] 79 mg/dL Normal 74-106 [facility] Comment on above: Performed By: #### G RUBIN, LIPID #### [facility] [address] [place] [address] Dr. Stephan Tavares Potassium [Moles/Vol] 3.4 mmol/L Critically low 3.5-5.1 [facility] Comment on above: Performed By: #### G RUBIN, LIPID #### [facility] [address] [place] [address] Dr. Stephan Tavares Protein [Mass/Vol] 8.3 g/dL Critically high 6.4-8.2 T [facility] Comment on above: Performed By: #### G RUBIN, LIPID #### [facility] [address] [place] [address] Dr. Stephan Tavares Sodium [Moles/Vol] 141 mmol/L Normal 136-145 [facility] Comment on above: Performed By: #### G RUBIN, LIPID #### [facility] [address], [place] [address] Dr. Stephan Tavares Urea nitrogen [Mass/Vol] 10.0 mg/dL Normal 7.0-18.0 [facility] Comment on above: Performed By: #### G RUBIN, LIPID #### [facility] [address], [place] [address] Dr. Stephan Tavares Urea nitrogen/Creatinine [Mass ratio] 11.4 mg/mg Normal [facility] Comment on above: Performed By: #### G RUBIN, LIPID #### [facility] [address], [place] [address] Dr. Stephan Tavares US PELVIS TRANSVAGon 023 US PELVIS TRANSVAG EXAMINATION: US PELV IS TRANSVAG HISTORY: UNSPECIFIED ABDOMINAL PAIN ; left pelvic pain COMPARISON: CT abdomen pelvis 06/09/2022, Ultrasound pelvis 03/02/2022 TECHNIQUE: Transabdominal and transvaginal sonographic examination. FINDINGS: UTERUS: Hysterectomy. RIGHT OVARY: Oophorectomy. LEFT OVARY: Not seen. Small amount of free fluid within left adnexa. CUL-DE-SAC: Unremarkable. No significant free fluid. BLADDER: Unremarkable. OTHER: None. IMPRESSION: 1. Trace amount of free fluid within left adnexa, likely physiologic. 2. No specific findings to account for patient's symptoms. Electronically authenticated by: ALVERTO PHAM Date: 2022-06-09 17:04 Normal [facility] Auto Diffon 06-07-2022 Basophils/100 WBC (Bld) 0.5 % Normal 0.0-2.0 [facility] Comment on above: Order Comment: Order Added by Discern Expert. Performed By: #### 2 166498, 17848534, 6946854, 9037686, 33526134, 91709321, 45340275, 4299251 #### [facility] [address] [place] [address] Basophils/Leukocytes Auto (Bld) [Pure # fraction] 0.0 E9/L Normal 0.0-0.2 [facility] Comment on above: Order Comment: Order Added by Discern Expert. Performed By: #### 2 730169, 88652044, 6735424, 1019126, 07445468, 62902597, 51585029, 5797757 #### [facility] [address] [place] [address] Eosinophils/100 WBC (Bld) 0.9 % Normal 0.0-8.0 [facility] Comment on above: Order Comment: Order Added by Discern Expert. Performed By: #### 2 326119, 23625153, 3442722, 3540167, 87641825, 46714382, 95422622, 3815355 #### [facility] [address] [place] [address] Eosinophils/Leukocyte s Auto (Bld) [Pure # fraction] 0.0 E9/L Normal 0.0-0.5 [facility] Comment on above: Order Comment: Order Added by Discern Expert. Performed By: #### 2 443207, 20152708, 3291687, 1114702, 97918971, 21185276, 91866249, 3656935 #### [facility] [address] [place] [address] Lymphocytes/100 WBC (Bld) 38.3 % Normal 14.0-50.0 [facility] Comment on above: Order Comment: Order Added by Mariela Expert. Performed By: #### 2 123860, 20497037, 1397408, 8033234, 30208165, 85110374, 15315124, 0605184 #### [facility] [address] [place] [address] Lymphocytes/Leukocyte s Auto (Bld) [Pure # fraction] 2.0 E9/L Normal 1.0-4.0 [facility] Comment on above: Order Comment: Order Added by Mariela Expert. Performed By: #### 2 131619, 53943595, 5099573, 2180723, 53219870, 57131776, 68605355, 0177970 #### [facility] [address] [place] [address] Monocytes/100 WBC (Bld) 7.2 % Normal 4.0-14.0 [facility] Comment on above: Order Comment: Order Added by Discern Expert. Performed By: #### 2 467788, 33072848, 7308784, 1147022, 40194490, 21357025, 51750123, 7389612 #### [facility] [address] [place] [address] Monocytes/Leukocytes Auto (Bld) [Pure # fraction] 0.4 E9/L Normal 0.2-1.0 [facility] Comment on above: Order Comment: Order Added by Discern Expert. Performed By: #### 2 143498, 67149729, 6897303, 3606945, 55253973, 35867429, 36460521, 2610730 #### [facility] [address] [place] [address] Neutrophils/100 WBC (Bld) 53.1 % Normal 36.0-75.0 [facility] Comment on above: Order Comment: Order Added by Discern Expert. Performed By: #### 2 746424, 95737008, 8118245, 2900282, 73614291, 24994855, 87765331, 4095958 #### [facility] [address] [place] [address] Neutrophils/Leukocyte s Auto (Bld) [Pure # fraction] 2.8 E9/L Normal 2.0-7.5 [facility] Comment on above: Order Comment: Order Added by Discern Expert. Performed By: #### 2 076521, 39203646, 5815223, 9405411, 14714703, 20734048, 57729151, 7251523 #### [facility] [address] [place] [address] B hCG Qualon 06-07-2022 Beta hCG Ql Negative Normal [facility] Comment on above: Performed By: #### 2 508959, 53363661, 5949988, 4819157, 08512414, 68477098, 25481741, 6799687 #### [facility] [address] [place] [address] BMPon 06-07-2022 Creatinine [Mass/Vol] 0.8 mg/dL Normal 0.5-1.3 [facility] Comment on above: Performed By: #### 2 644010, 61211520, 4346340, 1639262, 94073333, 61226198, 04970983, 1208683 #### [facility] [address] [place] [address] Urea nitrogen [Mass/Vol] 13 mg/dL Normal 5-21 [facility] Comment on above: Performed By: #### 2 050230, 56251754, 1948030, 1967379, 27441974, 70038579, 14503050, 4464862 #### [facility] [address] [place] [address] Urea nitrogen/Creatinine [Mass ratio] 16 No Units Normal 10-20 [facility] Comment on above: Performed By: #### 2 747291, 85292072, 2333206, 1307530, 76859587, 16764476, 13075161, 5818052 #### [facility] [address] [place] [address] Anion gap [Moles/Vol] 13 mmol/L Normal 6-16 [facility] Comment on above: Performed By: #### 2 771782, 29609190, 3637352, 1341434, 71766490, 55038497, 22367515, 5371940 #### [facility] [address] [place] [address] Calcium [Mass/Vol] 8.9 mg/dL Normal 8.9-11.1 [facility] Comment on above: Performed By: #### 2 971647, 78597562, 4980789, 2414980, 81270309, 98667709, 00940207, 2494930 #### [facility] [address] [place] [address] Chloride [Moles/Vol] 105 mmol/L Normal 101-111 [facility] Comment on above: Performed By: #### 2 915251, 06795325, 7071226, 1449322, 12079230, 30709327, 56962458, 6710510 #### [facility] [address] [place] [address] CO2 [Moles/Vol] 20 mmol/L Low 21-31 [facility] Comment on above: Performed By: #### 2 303467, 58715630, 8531434, 4536152, 22036911, 16665164, 79594554, 0564493 #### [facility] [address] [place] [address] Glucose [Mass/Vol] 82 mg/dL Normal 55-199 [facility] Comment on above: Result Comment: If t his glucose result represents a fasting glucose, interpretation should refer to the following reference range: 55-99 mg/dL Performed By: #### 2 430756, 53054606, 8277298, 9120142, 62000506, 57400200, 52555149, 3707729 #### [facility] [address] [place] [address] Potassium [Moles/Vol] 3.4 mmol/L Low 3.5-5.3 [facility] Comment on above: Performed By: #### 2 308056, 72723158, 0849610, 8498973, 67318437, 63149778, 16142245, 9806538 #### [facility] [address] [place] [address] Sodium [Moles/Vol] 135 mmol/L Normal 135-145 [facility] Comment on above: Performed By: #### 2 550949, 87607946, 4971796, 6360406, 19318281, 10111029, 70897140, 2533194 #### [facility] [address] [place] [address] CBC w/ Auto Diffon 3 Erythrocyte distribution width (RBC) [Ratio] 14.5 % High 10.9-14.2 [facility] Comment on above: Performed By: #### 2 6322445, 0894776, 8854454, 6321011, 3856159, 76338813, 2773267 ####[address] [place] [address] Hematocrit (Bld) [Volume fraction] 43.0 % Normal 34.0-46.0 [facility] Comment on above: Performed By: #### 2 5749760, 9102886, 7537773, 9227066, 8278448, 06710583, 8495569 ####[address] [place] [address] Hemoglobin (Bld) [Mass/Vol] 14.5 g/dL Normal 12.0-16.0 [facility] Comment on above: Performed By: #### 2 9038114, 1428239, 4457202, 4172236, 4763701, 57723625, 4408922 ####[address] [address] MCH (RBC) [Entitic mass] 30.2 pg Normal 27.0-34.0 [facility] Comment on above: Performed By: #### 2 3025733, 0055136, 9112595, 6065335, 8754130, 93598796, 6765687 ####[address] MCHC (RBC) [Mass/Vol] 33.7 g/dL Normal 31.4-36.0 [facility] Comment on above: Performed By: #### 2 3247180, 9210796, 1039547, 2526345, 3189928, 03558358, 4057242 ####[address] [address] MCV (RBC) [Entitic vol] 89.4 fL Normal 80.0-100.0 [facility] Comment on above: Performed By: #### 2 8336320, 9212069, 4375515, 8269842, 1566535, 45659815, 4678777 ####[address] [place] [address] Platelet mean volume (Bld) [Entitic vol] 9.9 fL Normal 6.4-10.8 [facility] Comment on above: Performed By: #### 2 1291533, 2314038, 3567274, 8133680, 0418813, 37681437, 4251543 ####[address] [place] [address] Platelets (Bld) [#/Vol] 250.0 E9/L Normal 150.0-500.0 [facility] Comment on above: Performed By: #### 2 4829882, 3869405, 5610668, 1063721, 3569265, 91780511, 9604601 ####[address] [address] RBC (Bld) [#/Vol] 4.8 E12/L Normal 4.3-5.9 [facility] Comment on above: Performed By: #### 2 7701225, 9624090, 3413640, 6324878, 0628216, 60489428, 2321551 ####[address] [address] WBC corrected for nucl RBC Auto (Bld) [#/Vol] 5.2 E9/L Normal 4.0-11.0 [facility] Comment on above: Performed By: #### 2 6557008, 6322972, 0901917, 8513966, 4954453, 11676483, 3119114 ####[address] [address] Consent for Treatmenton 05-17 Consent for Treatment [id number] 0CD:[address] [facility] Discharge Instructionson Discharge Instructions [id number] CD:[address] [facility] ED Clinical Summaryon 2022 ED Clinical Summary [address] [address] ED Clinical Summary Person Information Name: ABBEY GARCIA [place] Age: 32 Years : 1990 Sex: Female Language: Burmese PCP: Jaquan Paula Marital Status: Phone: [phone] Visit Id: Visit Reason: Abdominal pain; Vomiting; Nausea; NAUSEA, LEFT SIDE OVARY PAIN Speciality: Acuity: 3 Enc Type: Emergency Med Service: Emergency Arrival: 06/07/2022 10:12:18 Discharge: 06/07/2022 12:32:54 LOS: 000 02:20 Checkin: 06/07/2022 10:12:18 Checkout: 06/07/2022 12:32:54 Dispo Type: Home (Routine DC) EVENTS: Event Name Event Status Request Date/Time Start Date/Time Complete Date/Time Arrive Complete 06/07/2022 10:12:18 06/07/2022 10:12:18 06/07/2022 10:12:18 Document Home Meds Request 06/07/2022 10:12:18 Triage Complete 06/07/2022 10:12:18 06/07/2022 10:23:35 06/07/2022 10:23:35 Bed Assign Complete 06/07/2022 10:16:18 06/07/2022 10:16:18 06/07/2022 10:16:18 Dr Exam Complete 06/07/2022 10:16:18 06/07/2022 10:21:58 06/07/2022 10:21:58 RN Exam Complete 06/07/2022 10:16:18 06/07/2022 10:27:55 06/07/2022 10:27:55 Registration Complete 06/07/2022 10:21:58 06/07/2022 10:26:22 06/07/2022 10:26:22 Dr Exam Complete 06/07/2022 10:25:13 06/07/2022 10:25:13 06/07/2022 10:25:13 Reg Complete Request 06/07/2022 10:26:22 Reg Bed Request Complete 06/07/2022 10:26:22 06/07/2022 10:26:22 06/07/2022 10:26:22 US Complete 06/07/2022 10:43:20 06/07/2022 11:08:09 06/07/2022 11:54:53 Meds Admin Complete 06/07/2022 10:43:20 06/07/2022 10:49:26 Pending Labs Complete 06/07/2022 10:43:20 06/07/2022 11:58:53 Lab Complete 06/07/2022 10:43:20 06/07/2022 11:52:07 Urine Collect Complete 06/07/2022 10:43:20 06/07/2022 11:13:56 Pending Labs Complete 06/07/2022 10:58:01 06/07/2022 10:58:01 06/07/2022 11:52:08 Lab Complete 06/07/2022 10:58:01 06/07/2022 10:58:01 06/07/2022 11:52:08 Pending Labs Complete 06/07/2022 11:03:22 06/07/2022 11:03:22 06/07/2022 11:03:29 Lab Complete 06/07/2022 11:03:22 06/07/2022 11:03:22 06/07/2022 11:03:29 US Complete 06/07/2022 11:33:49 06/07/2022 11:34:01 06/07/2022 11:55:27 Discharge Complete 06/07/2022 12:09:14 06/07/2022 12:33:01 06/07/2022 12:33:01 Transfer Complete 06/07/2022 12:33:01 06/07/2022 12:33:01 06/07/2022 12:33:01 ADDRESS: [address] [place] [phone] PHYS DOC NOTES: MEDICAL INFORMATION: Prescriptions Given: New Medications [id number], [address], [place] [id number], [phone] acetaminophen-oxycodon e (acetaminophen-oxycodo ne 325 mg-5 mg Tab) 1 Tablets By Mouth every 4 hours as needed for pain. Refills: 0. Medications to Continue Taking That Have Changed [id number], [address] [place], [place] [id number], [phone] START: ondansetron (ondansetron 4 mg Dis Tab) 1 Tablets By Mouth every 6 hours. Refills: 0. Other Medications START: ondansetron (Zofran ODT 4 mg Tab) 1 Tablets By Mouth 3 times a day. Refills: 0. Medications to Continue with No Changes Other Medications acetaminophen-codeine (acetaminophen-codeine 300 mg-15 mg oral tablet) 1 Tablets By Mouth 2 times a day. Refills: 0. dicyclomine (Bentyl 10 mg Cap) 1 Capsules By Mouth 4 times a day for 10 Days. Refills: 0. dicyclomine (Bentyl 10 mg Cap) 2 Capsules By Mouth 4 times a day. Refills: 0. doxycycline (doxycycline hyclate 100 mg Cap) 1 Capsules By Mouth 2 times a day. Refills: 0. duloxetine (Cymbalta) 60 Milligram By Mouth 2 times a day. escitalopram (Lexapro 10 mg Tab) 1 Tablets By Mouth every day. escitalopram (Lexapro 5 mg oral tablet) 1 Tablets By Mouth every day. gabapentin (gabapentin 300 mg Cap) 1 cap(s) Oral daily x 1 day, 1 tab BID x 1 day, then 1 tab TID thereafter.. Refills: 0. iron polysaccharide (ProFe) 180 Milligram By Mouth every day. levothyroxine 75 Microgram By Mouth every day. levothyroxine (levothyroxine 125 mcg (0.125 mg) Tab) 1 Tablets By Mouth every day. Refills: 0. liothyronine (liothyronine 5 mcg Tab) 5 Microgram By Mouth every day. Refills: 1. metformin 1,000 Milligram By Mouth 2 times a day. mirtazapine (mirtazapine 15 mg Tab) 1 Tablets By Mouth once a day (at bedtime). mirtazapine (mirtazapine 15 mg Tab) [facility] Prescription ( minipill Birthcontrol) 0 every day. multivitamin (Multi Vitamins oral tablet) 1 Tablets By Mouth every day. pantoprazole (Protonix 40 mg Tab-DR) 1 Tablets By Mouth 2 times a day. promethazine (promethazine 25 mg Tab) 1 Tablets By Mouth every 6 hours as needed as needed for nausea/vomiting. Refills: 0. promethazine (promethazine 25 mg Tab) 1 Tablets By Mouth every 6 hours as needed as needed for nausea/vomiting. Refills: 0. sertraline 100 Milligram By Mouth every day. sucralfate (Carafate Tab) 1 Tablets By Mouth 4 times a day. PATIENT EDUCATION INFORMATION: Instructions: Ovarian Cyst Follow up: With: Address: When: WALLY FOLEY [address] [place] [phone] Business (1) In (more content not included)... Normal [facility] ED Note-Physicianon 06-08-19 ED Note-Physician Basic Information Time Seen: Anya QUIROZ, Rui Abbasi 06/07/2022 10:21 Chief Complaint Patient states lower left abd pain, cramping and stabbing pain, patient with partial hysterectomy but still has left ovary. Nausea and vomiting, ongoing for 4 days, denies diarrhea History of Present Illness Patient is a 32-year-old female presents the ED with complaint of cramping and stabbing left lower abdominal pain/pelvic pain as well as nausea and dry heaves. Patient reports a known history of PCOS as well as a known left ovarian cyst which was seen in January and was around 3 cm. Patient states she is been having stabbing cramping pain over the last 4 days. Patient saw her PCP 2 days ago and was given Bentyl and instruction to follow-up with pain got worse. Patient is status post partial hysterectomy, does have intact left ovary. Patient denies any history of ovarian torsion. Patient denies any vomiting, states she has been having dry heaves secondary to pain. Patient is taking Tylenol and Bentyl with no other medications. Patient denies any fever or chills. Patient denies any vaginal discharge. Patient denies any dysuria or hematuria. Patient denies any bowel changes. Review of Systems Full 10 system ROS performed. Pt denies symptoms except as noted above in the HPI. Physical Exam Vitals & Measurements T: 36.5 ?C(Oral) HR: 75(Monitored) RR: 18 BP: 151/88 SpO2: 100% HT: 168 cm WT: 83 kg BMI: 29.41 VITALS: I have reviewed the triage vital signs. GENERAL: Well developed, well appearing adult in no acute distress. NEURO: Alert and oriented. Moves all extremities. Face is symmetric and expressive. EYES: PERRL. No scleral icterus or conjunctival injection. No discharge. HENT: Normocephalic, atraumatic. Hearing is grossly intact. Nares grossly patent and without discharge. Mucous membranes moist. NECK: No JVD. Patient moves neck without restriction. CARDIO: Rhythm regular. Normal rate. No murmur, rub, or gallop. Pulses equal bilaterally in the upper and lower extremity. No lower extremity edema. PULM: Lungs clear to auscultation in all mera. No wheezes, rales, or rhonchi. No conversational dyspnea. No splinting, stridor, or accessory muscle use. GI/: Abdomen is soft tender to palpation worse left pelvic/suprapubic area. Normoactive bowel sounds. EXTREMITIES: Symmetric muscle bulk. No joint swelling. No clubbing, cyanosis, or deformity. SKIN: Warm and dry. Normal turgor. No rash or lesions appreciated. PSYCH: Mood, affect, and interaction is appropriate to the setting. Medical Decision Making MEDICAL DECISION MAKING Number and Complexity of Problems Differential Diagnosis: [] [facility] Data External documents reviewed: [] My EKG interpretation: [] My CT interpretation: [] My X-ray interpretation: [] My Ultrasound interpretation: [] Decision rules/scores evaluated: [] Discussed with: [] Treatment and Disposition ED Course: Patient presents ED for evaluation of left-sided pelvic pain in the context of known left ovarian cyst. Work-up in ED reviewed and noted. Patient without any significant hematologic or abnormalities of chemistry. Ultrasound of pelvis showed a 1.8 cm ovarian cyst, probably hemorrhagic, no free fluid. No evidence of ovarian torsion on pelvic ultrasound. Patient given pain medication antiemetics in the ED with improvement of symptoms. Patient instructed to follow-up with PCP, states that she has scheduled follow-up with OB. Return precautions discussed with patient. Patient questions answered. Patient discharged home. Shared decision making: [] Code status: [] Assessment/Plan Ovarian cyst (N83.209: Unspecified ovarian cyst, unspecified side) Orders: acetaminophen-oxycodon e, 1 tab(s), Oral, q4hr for pain, 12 tab(s), Refill(s) 0, [id number], 168, cm, 06/07/22 10:23:00 EDT, Height/Length Dosing, 83, kg, 06/07/22 10:23:00 EDT, Weight Dosing HYDROmorphone, 1 mg = 1 mL, Injection, IV Push, Once, Stop date 06/07/22 10:42:00 EDT, STAT, Start date 06/07/22 10:42:00 EDT, 06/07/22 10:42:00 EDT ondansetron, 4 mg = 1 tab(s), Oral, q6hr, # 12 tab(s), Refills(s) 0, Pharmacy: [facility] #[id number], 168, cm, 06/07/22 10:23:00 EDT, Height/Length Dosing, 83, kg, 06/07/22 10:23:00 EDT, Weight Dosing ondansetron, 4 mg = 2 mL, Injection, IV Push, Once, Stop date 06/07/22 10:42:00 EDT, STAT, Start date 06/07/22 10:42:00 EDT, 06/07/22 10:42:00 EDT Sodium Chloride 0.9% intravenous solution, 1,000 mL, Soln-IV, IV, Once, Stop date 06/07/22 10:42:00 EDT, STAT, Start date 06/07/22 10:42:00 EDT, Infuse over 61, minute(s) Automated Diff Basic Metabolic Panel Beta hCG Qual CBC w/ Auto Diff eGFR Hepatic Function Panel Lipase Level UA With Cult Reflex US Pelvis Non-OB Complete US Transvaginal Non-OB Medications Administered Given HYDROmorphone 1 mg/mL injectable solution, 1 mg, IV Push NS 1000 ml Bolus, 1000 mL, IV ondansetron 4 mg/2 mL Inj, 4 mg, IV Push Disposition Plan (more content not included)... Normal [facility] Comment on above: Result Comment: Elec tronically Signed By: Rui Joyner PA-C\.br\Date and Time Signed: 06/07/22 13:08 EDT\.br\Electronically Co-Signed By: Ashutosh Albright M.D.\.br\Date and Time Co-Signed: 06/07/22 18:19 EDT ED Patient Education Noteon 06-07-2022 ED Patient Education Note Obstetrics and Gynecology Ovarian Cyst An ovarian cyst is a fluid-filled sac that forms on an ovary. The ovaries are small organs that produce eggs in women. Various types of cysts can form on the ovaries. Some may cause symptoms and require treatment. Most ovarian cysts go away on their own, are not cancerous (are benign), and do not cause problems. What are the causes? Ovarian cysts may be caused by: ? Ovarian hyperstimulation syndrome. This is a condition that can develop from taking fertility medicines. It causes multiple large ovarian cysts to form. ? Polycystic ovarian syndrome (PCOS). This is a common hormonal disorder that can cause ovarian cysts to form, and can cause problems with your period or fertility. ? The normal menstrual cycle. What increases the risk? The following factors may make you more likely to develop this condition: ? Being overweight or obese. ? Taking fertility medicines. ? Taking certain forms of hormonal control. ? Smoking. What are the signs or symptoms? Many ovarian cysts do not cause symptoms. If symptoms are present, they may include: ? Pelvic pain or pressure. ? Pain in the lower abdomen. ? Pain during sex. ? Abdominal swelling. ? Abnormal menstrual periods. ? Increasing pain with menstrual periods. How is this diagnosed? These cysts are commonly found during a routine pelvic exam. You may have tests to find out more about the cyst, such as: ? Ultrasound. ? CT scan. ? MRI. ? Blood tests. How is this treated? Many ovarian cysts go away on their own without treatment. Your health care provider may want to check your cyst regularly for 2?3 months to see if it changes. If you are in menopause, it is especially important to have your cyst monitored closely because menopausal women have a higher rate of ovarian cancer. When treatment is needed, it may include: ? Medicines to help relieve pain. ? A procedure to drain the cyst (aspiration). ? Surgery to remove the whole cyst (cystectomy). ? Hormone treatment or control pills. These methods are sometimes used to help keep cysts from coming back. ? Surgery to remove the ovary (oophorectomy). Follow these instructions at home: ? Take uqrg-oxq-[id number] and prescription medicines only as told by your health care provider. ? Ask your health care provider if any medicine prescribed to you requires you to avoid driving or using machinery. ? Get regular pelvic exams and Pap tests as often as told by your health care provider. ? Return to your normal activities as told by your health care provider. Ask your health care provider what activities are safe for you. ? Do not use any products that contain nicotine or tobacco, such as cigarettes, e-cigarettes, and chewing tobacco. If you need help quitting, ask your health care provider. ? Keep all follow-up visits. This is important. Contact a health care provider if: ? Your periods are late, irregular, painful, or they stop. ? You have pelvic pain that does not go away. ? You have pressure on your bladder or trouble emptying your bladder completely. ? You have any of the following: ? A feeling of fullness. ? You are gaining weight or losing weight without changing your exercise and eating habits. ? Pain, swelling, or bloating in the abdomen. ? Loss of appetite. ? Pain and pressure in your back and pelvis. ? You think you may be . Get help right away if: ? You have abdominal or pelvic pain that is severe or gets worse. ? You cannot eat or drink without vomiting. ? You suddenly develop a fever or chills. ? Your menstrual period is much heavier than usual. Summary ? An ovarian cyst is a fluid-filled sac that forms on an ovary. ? Some ovarian cysts may cause symptoms and require treatment. ? These cysts are commonly found during a routine pelvic exam. ? Many ovarian cysts go away on their own without treatment. This information is not intended to replace advice given to you by your health care provider. Make sure you discuss any questions you have with your health care provider. Document Revised: 07/11/2020 Document Reviewed: 07/11/2020 Elsevier Patient Education ? [address] [employer] [address] [facility] ED Patient Summaryon 023 ED Patient Summary [address] [address] Patient Discharge Instructions Person Information Name: ABBEY GARCIA Age: 32 Years Arrival Date: 06/07/2022 10:12:18 Discharge Diagnosis: Ovarian cyst Primary Care Physician: Jaquan Paula Provider Information Primary Provider: Ashutosh Albright M.D. Advanced Casting Director:Rui Joyner PA-C The exam and treatment you received in the Emergency Department were for an urgent problem and are not intended as complete care. It is important that you follow up with a doctor, nurse practitioner, or physician?s phlebotomy lab assistant for ongoing care. If your symptoms become worse or you do not improve as expected and you are unable to reach your usual health care provider, you should return to the Emergency Department. We are available 24 hours a day. ABBEY GARCIA has been given the following list of patient education materials, prescriptions and follow-up instructions: Follow-up Instructions: With: Address: When: WALLY FOLEY [address] [place] [phone] [facility] (1) In 3 days 06/10/2022 Comments: Follow-up with a PRIMER INSERTING MACHINE ADJUSTER as previously arranged as well as PCP Call the office of your primary care doctor to arrange for follow-up within the above-stated timeframe. Follow-up with your primary care doctor about this ED visit. You should review your labs, imaging, and diagnoses from this ED visit with your primary care physician. If you were prescribed medications you should discuss possible side-effects and drug interactions with your pharmacist. Call 911 or go to the nearest Emergency Department if you develop any new or worsening symptoms. In the event that this physician does not participate in your insurance network, please consult with your insurance company to find a nearby participating provider. Patient Education Materials: Ovarian Cyst A MESSAGE TO ALL PATIENTS REGARDING OPIOIDS PRESCRIPTION OPIOIDS: WHAT YOU NEED TO KNOW Prescription opioids can be used to help relieve qcufmzmt-se-knpctj pain and are often prescribed following a surgery or injury, or for certain health conditions. These medications can be an important part of the treatment but also come with serious risks. It is important to work with your healthcare provider to make sure you are getting the safest, most effective care. WHAT ARE THE RISKS AND SIDE EFFECTS OF OPIOID USE? Prescription opioids carry serious risks of addiction and overdose, especially with prolonged use. An opioid overdose, often marked by slowed breathing, can cause sudden . The use of prescription opioids can have a number of side effects as well, even when taken as directed: ? Tolerance?meaning you might need to take more of the medication for the same pain relief ? Physical dependence?meaning you have symptoms of withdrawal when a medication is stopped ? Increased sensitivity to pain ? Constipation ? Nausea, vomiting, and dry mouth ? Sleepiness and dizziness ? Confusion ? Depression ? Low levels of testosterone that can result in lower sex drive, energy, and strength ? Itching and sweating RISKS ARE GREATER WITH: ? History of drug misuse, substance use disorder, or overdose ? Mental health conditions (such as depression or anxiety) ? Sleep apnea ? Older age (65 years and older) ? Avoid alcohol while taking prescription opioids. Also, unless specifically advised by your health care provider, medications to avoid include: ? Benzodiazepines (such as Xanax or Valium) ? Muscle relaxants (such as Soma or Flexeril) ? Hypnotics (such as Ambien or Lunesta) ? Other prescription opioids KNOW YOUR OPTIONS Talk to your health care provider about ways to manage your pain that don?t involve prescription opioids. Some of these options may actually work better and have fewer risks and side effects. Options may include: ? Pain relievers such as acetaminophen, ibuprofen, and naproxen ? Some medication that are also used for depression or seizures ? Physical therapy and exercise ? Cognitive behavioral therapy, a psychological, goal-directed approach, in which patients learn how to modify physical, behavioral, and emotional triggers of pain and stress. IF YOU ARE PRESCRIBED OPIOIDS FOR PAIN: ? Never take opioids in greater amounts or more often than prescribed. ? Follow up with your primary health care provider. o Work together to create a plan on how to manage your pain. o Talk about ways to help manage your pain that don?t involve prescription opioids. o Talk about any and all concerns and side effects. ? Help prevent misuse and abuse o Never sell or share prescription opioids. o Never use another person?s prescription opioids. ? Store prescription opioids in a secure place and out of reach of others (this may include visitors, children, friends, a (more content not included)... Normal [facility] Hep Fun Panelon 06-07-2022 Albumin [Mass/Vol] 4.5 g/dL Normal 3.3-5.0 [facility] Comment on above: Performed By: #### 2 010977, [id number], 0249015, 1392879, 53759854, 68072774, 89283550, 4507359 #### [facility] [address] [place] [address] Albumin/Globulin (S) [Mass conc ratio] 1.4 Normal 1.1-2.2 [facility] Comment on above: Performed By: #### 2 874344, 25532154, 8018089, 0868294, 78485896, 65710733, 09691637, 6599790 #### [facility] [address] [id number] ALP [Catalytic activity/Vol] 58 Int._Unit/L Normal 21-98 [facility] Comment on above: Performed By: #### 2 795615, 92229724, 5269178, 3128486, 53799594, 91786830, 57730131, 5429624 #### [facility] [address] [place] [address] ALT No additional P-5'-P [Catalytic activity/Vol] 19 Int._Unit/L Normal 6-46 [facility] Comment on above: Performed By: #### 2 432962, 78269856, 7531072, 3765208, 66712932, 66597299, 29527990, 0380777 #### [facility] [address] [place] [address] AST [Catalytic activity/Vol] 31 Int._Unit/L Normal 5-43 [facility] Comment on above: Performed By: #### 2 656508, 39359500, 8514842, 6140312, 10167009, 75471477, 30791920, 2310248 #### [facility] [address] [place] [address] Bilirubin.direct [Mass/Vol] 0.1 mg/dL Normal 0.1-0.4 [facility] Comment on above: Performed By: #### 2 975198, 72474487, 7519610, 0912914, 48216022, 46353388, 61226753, 7781267 #### [facility] [address] [place] [address] Globulin (S) [Mass/Vol] 3.1 g/dL Normal 1.4-4.0 [facility] Comment on above: Performed By: #### 2 303579, 82589527, 2178301, 8311692, 44565817, 13318307, 62173392, 4374625 #### [facility] [address] [place] [address] Protein [Mass/Vol] 7.6 g/dL Normal 6.0-7.8 [facility] Comment on above: Performed By: #### 2 332691, 07858754, 6871552, 6965357, 77778466, 16335282, 66346072, 8297084 #### [facility] [address] [place] [address] Bilirubin [Mass/Vol] 0.6 mg/dL Normal 0.0-1.1 [facility] Comment on above: Performed By: #### 2 541950, 85300603, 7873182, 1239627, 21743317, 05215005, 06936418, 7991205 #### [facility] [address] [place] [address] Bilirubin.indirect [Mass or moles/Vol] 0.5 mg/dL Normal 0.1-0.9 [facility] Comment on above: Performed By: #### 2 064562, 72429301, 2063799, 0058809, 80544890, 97669586, 56302838, 8261519 #### [facility] [address] [place] [address] Lipase Levelon 06-07-2022 Lipase [Catalytic activity/Vol] 49 U/L Normal 13-58 [facility] Comment on above: Performed By: #### 2 796803, 53072058, 4462230, 7060983, 00941320, 39081777, 68976882, 4692223 #### [facility] [address] [place] [address] UA With Cult Reflexon 2022 Bacteria LM Ql (Urine sed) TRACE Normal Trace [facility] Comment on above: Performed By: #### 1 7145708 ####[facility] [address] [place] [address] Bilirubin Ql (U) Negative Normal Negative [facility] Comment on above: Performed By: #### 1 5141485 ####[facility] [address] [place] [address] Clarity (U) CLEAR Normal Clear [facility] Comment on above: Performed By: #### 1 5493004 ####[address] [address] Color (U) YELLOW Normal Yellow [facility] Comment on above: Performed By: #### 1 5930427 ####[facility] [address] [place] [address] Crystals LM Ql (Urine sed) Present Normal [facility] Comment on above: Performed By: #### 1 2406073 ####[facility] [address] [place] [address] Epithelial cells.squamous LM.HPF (Urine sed) [#/Area] 3-4 Normal 0-2 [facility] Comment on above: Performed By: #### 1 0853421 ####[facility] [address] [place] [address] Glucose Test strip (U) [Mass/Vol] Negative Normal Negative [facility] Comment on above: Performed By: #### 1 6682764 ####[facility] [address] [place] [address] Hemoglobin Ql (U) Negative Normal Negative [facility] Comment on above: Performed By: #### 1 9399896 ####[facility] [address] [place] [address] Ketones (U) [Mass/Vol] Negative Normal Negative [facility] Comment on above: Performed By: #### 1 4228182 ####[facility] [address] [place] [address] Aneth.plasma/Lithiu m.RBC (Bld) [Mass ratio] 0-3 Normal 0-3 [facility] Comment on above: Performed By: #### 1 7699070 ####[facility] [address] [place] [address] Mucus Ql (Urine sed) TRACE Normal [facility] Comment on above: Performed By: #### 1 2219971 ####[address] [address] Nitrite Ql (U) Negative Normal Negative [facility] Comment on above: Performed By: #### 1 5872026 ####[address] [address] pH (U) 7.5 [pH] Invalid Interpretation Code 5.0-9.0 [facility] Comment on above: Performed By: #### 1 4980344 ####[address] [address] Protein (U) [Mass/Vol] Negative Normal Negative [facility] Comment on above: Performed By: #### 1 2769103 ####[address] [address] Specific gravity (U) [Rel density] 1.020 Invalid Interpretation Code 1.005-1.030 [facility] Comment on above: Performed By: #### 1 1567919 ####[facility] [address] [place] [address] Type of Urine collection method Clean Catch Normal [facility] Comment on above: Performed By: #### 1 0815419 ####[address] [address] Urobilinogen Qn (U) 0.2 {Munir'U}/dL Normal 0.0-1.0 [facility] Comment on above: Performed By: #### 1 1741009 ####[facility] [address] [place] [address] WBC Auto Ql (U) Negative Normal Negative [facility] Comment on above: Performed By: #### 1 9386497 ####[facility] [address] [place] [address] WBC LM.HPF (Urine sed) [#/Area] 0-5 Normal 0-5 [facility] Comment on above: Performed By: #### 1 9653757 ####[facility] [address] [place] [address] US Pelvis Non-OB Completeon 06-07-2022 US Pelvis Non-OB Complete Exam Date/Time: 06/07/2022 11:54 EDT Reason for Exam: Ovarian cyst Report IMPRESSION: STATUS POST DISCECTOMY AND RIGHT OOPHORECTOMY. THERE IS A 1.8 CM HEMORRHAGIC CYST IN LEFT OVARY. CLINICAL HISTORY: Ovarian cyst. COMPARISON: COMMENT: Transabdominal images were obtained. Status post hysterectomy and right oophorectomy. The left ovary measurements and an estimated volume are: Left Ovary Length: 3.2 cm Left Ovary Width: 1.8 cm Left Ovary Height: 3.0 cm Left Ovary Volume: 9.1 cm3 There is a 1.8 cm cyst in the left ovary with internal echoes which may indicate hemorrhage. No adnexal mass is evident. There is no free fluid in the cul-de-sac. Ordering Provider: Rui Joyner FINAL REPORT Dictated: 06/07/2022 1:57 pm Aaron Adorno MD, V. Signed (Electronic Signature): 06/07/2022 1:57 pm Signed by: Aaron Adorno MD, V. Transcribed by: CHANEL Technologist: ERICA Technical Comments Transabdominal Ultrasound Performed Transvaginal Ultrasound Performed Normal [facility] US Transvaginal Non-OBon US Transvaginal Non-OB Exam Date/Time: 06/07/2022 11:55 EDT Reason for Exam: Pelvic pain Report IMPRESSION: PLEASE SEE PELVIC ULTRASOUND REPORT CLINICAL HISTORY: Pelvic pain COMPARISON: NONE. FINDINGS: Ordering Provider: Rui Joyner FINAL REPORT Dictated: 06/07/2022 1:57 pm Aaron Adorno MD, V. Signed (Electronic Signature): 06/07/2022 1:57 pm Signed by: Aaron Adorno MD, V. Transcribed by: CHANEL Technologist: ERIAC Normal [facility] eGFRon 06-07-2022 GFR/1.73 sq M.predicted among blacks MDRD (S/P/Bld) [Vol rate/Area] mL/min/{1.73_m2} Normal >=59 [facility] Comment on above: Order Comment: Order added by Discern Expert. Result Comment: eGFR is race adjusted. AA=. Performed By: #### 2 076227, 63538398, 5000584, 3073204, 74273508, 37845601, 00830497, 1676558 #### [facility] [address] [place] [address] GFR/1.73 sq M.predicted among non-blacks MDRD (S/P/Bld) [Vol rate/Area] mL/min/{1.73_m2} Normal >=59 [facility] Comment on above: Order Comment: Order added by Discern Expert. Result Comment: Electromechanical Inspector yrn kidney disease could be indicated at eGFR's of less than 60 mL/min/1.73m2. Kidney failure is indicated at less than 15 mL/min/1.73m2. Performed By: #### 2 597182, 33497343, 4460175, 0246111, 67269314, 30847628, 80307911, 5442087 #### [facility] [address] [place] [address] Lab Reportson 06-01-2022 Lab Reports [id number] 0CD:[id number] [facility] HLA B 27on 05-28-2022 HLA-B27 Negative Normal [facility] Comment on above: Result Comment: HLA- B*27 Negative B27 allele interpretation for all loci based on IMGT/HLA database version 3.44 This test was developed and its performance characteristics determined by [employer]. It has not been cleared or approved by the Food and Drug Administration. [facility] CLIA ID Number [id number] . This test was performed using PCR (Polymerase Chain Reaction)/SSOP (Sequence Specific Oligonucleotide Probes) technique. SBT (Sequence Based Typing) and/or SSP (Sequence Specific Primers) may be used as supplemental methods when necessary. Please contact HLA Customer Service at if you have any questions. . Director of HLA Laboratory Dr Tino Sampson, PhD Performed By: #### B MP, MG #### [facility] [address] [place] [address] Dr. Stephan Tavares LYME DISEASE, WESTERN BLOTon 05-27-2022 IgG P18 Ab. Absent [facility] Comment on above: Performed By: #### B MP, MG #### [facility] [address] [place] [address] Dr. Stephan Tavares IgG P23 Ab. Absent [facility] Comment on above: Performed By: #### B MP, MG #### [facility] [address] [place] [address] Dr. Stephan Tavares IgG P28 Ab. Absent [facility] Comment on above: Performed By: #### B MP, MG #### [facility] [address] [place] [address] Dr. Stephan Tavares IgG P30 Ab. Absent [facility] Comment on above: Performed By: #### B MP, MG #### [facility] [address] [place] [address] Dr. Stephan Tavares IgG P39 Ab. Absent [facility] Comment on above: Performed By: #### B MP, MG #### [facility] [address] [place] [address] Dr. Stephan Tavares IgG P41 Ab. Present Abnormal [facility] Comment on above: Performed By: #### B MP, MG #### [facility] [address] [place] [address] Dr. Stephan Tavares IgG P45 Ab. Absent [facility] Comment on above: Performed By: #### B MP, MG #### [facility] [address] [place] [address] Dr. Stephan Tavares IgG P58 Ab. Absent [facility] Comment on above: Performed By: #### B MP, MG #### [facility] [address] [place] [address] Dr. Stephan Tavares IgG P66 Ab. Absent Normal [facility] Comment on above: Performed By: #### B MP, MG #### [facility] [address] [place] [address] Dr. Stephan Tavares IgG P93 Ab. Absent Normal [facility] Comment on above: Performed By: #### B MP, MG #### [facility] [address] [place] [address] Dr. Stephan Tavares IgM P23 Ab. Present Abnormal [facility] Comment on above: Performed By: #### B MP, MG #### [facility] [address] [place] [address] Dr. Stephan Tavares IgM P39 Ab. Absent Normal [facility] Comment on above: Performed By: #### B MP, MG #### [facility] [address] [place] [address] Dr. Stephan Tavares IgM P41 Ab. Present Abnormal [facility] Comment on above: Performed By: #### B MP, MG #### [facility] [address] [place] [address] Dr. Stephan Tavares Lyme IgG WB Interp. Negative Normal [facility] Comment on above: Result Comment: Posi tive: 5 of the following Borrelia-specific bands: 18,23,28,30,39,41,45,58, 66, and 93. Negative: No bands or banding patterns which do not meet positive criteria. Performed By: #### B MP, MG #### [facility] [address] [place] [address] Dr. Stephan Tavares Lyme IgM WB Interp. Positive Abnormal [facility] Comment on above: Result Comment: Note : An equivocal or positive EIA result followed by a negative Line Blot result is considered NEGATIVE. An equivocal or positive EIA result followed by a positive Line Blot is considered POSITIVE by the CDC. . Positive: 2 of the following bands: 23,39 or 41 Negative: No bands or banding patterns which do not meet positive criteria. Criteria for positivity are those recommended by CDC/ASTPHLD. p23=Osp C, g34=pwckrivqg . Note: Sera from individuals with the following may cross react in the Lyme Line Blot assays: other spirochetal diseases (periodontal disease, leptospirosis, relapsing fever, yaws, and pinta); connective autoimmune (Rheumatoid Arthritis and Systemic Lupus Erythematosus and also individuals with Antinuclear Antibody); other infections ([place] Spotted Fever; Prabhakar-Rangel Virus, and Cytomegalovirus). . . Please Note: Lyme immunoblot alone is not recommended for the diagnosis of Lyme disease. Current guidelines recommend the use of a two-tiered approach to Lyme serology testing to improve the sensitivity and specificity of testing. [facility] offers test code 544221 Lyme Disease Serology with Reflex to aid in the diagnosis of Lyme Disease. Performed By: #### B MP, MG #### [facility] [address] [place] [address] Dr. Stephan Tavares MISAEL EIA W/REFLEX 9 BIOMARKER Son 05-25-2022 MISAEL Direct Negative Normal Negative [facility] Comment on above: Performed By: #### A NARF9 #### [facility] [address] [place] [address] Dr. Stephan Tavares SLE PROFILE Aon 05-25-2022 Anti-DNA (DS) Ab Qn 2 IU/mL Normal 0-9 [facility] Comment on above: Result Comment: Nega tive <5 Equivocal 5 - 9 Positive >9 Performed By: #### S RONALDO #### [facility] [address] [place] [address] Dr. Stephan Tavares Antichromatin Antibodies <0.2 Normal 0.0-0.9 [facility] Comment on above: Performed By: #### S RONALDO #### [facility] [address] [place] [address] Dr. Stephan Tavares RA Latex Turbid. <10.0 Normal <14.0 [facility] Comment on above: Performed By: #### S RONALDO #### [facility] [address] [place] [address] Dr. Stephan Tavares FLAGSTONE LAYER Antibodies 0.3 AI Normal 0.0-0.9 [facility] Comment on above: Performed By: #### S RONLADO #### [facility] [address] [place] [address] Dr. Stephan Tavares Sjogrrodolfo'nancy Anti-SS-A <0.2 Normal 0.0-0.9 [facility] Comment on above: Performed By: #### S RONALDO #### [facility] [address] [place] [address] Dr. Stephan Tavares Sjogrrodolfo's Anti-SS-B <0.2 Normal 0.0-0.9 [facility] Comment on above: Performed By: #### S RONALDO #### [facility] [address] [place] [address] Dr. Stephan Tavares Du Antibodies <0.2 Normal 0.0-0.9 [facility] Comment on above: Performed By: #### S RONALDO #### [facility] [address] [place] [address] Dr. Stephan Tavares CBC AUTO DIFFon 05-22-2022 BASO # 0.0 103/ul Normal 0.0-0.1 [facility] Comment on above: Performed By: #### C BC #### [facility] [address] [place] [address] Dr. Stephan Tavares Basophils/100 WBC (Bld) 1.0 % Normal 0.2-2.0 [facility] Comment on above: Performed By: #### C BC #### [facility] [address] [place] [address] Dr. Stephan Tavares EO # 0.1 103/ul Normal 0.0-0.7 [facility] Comment on above: Performed By: #### C BC #### [facility] [address] [place] [address] Dr. Stephan Tavares Eosinophils/100 WBC (Bld) 1.3 % Normal 0.9-7.0 [facility] Comment on above: Performed By: #### C BC #### [facility] [address] [place] [address] Dr. Stephan Tavares Erythrocyte distribution width (RBC) [Ratio] 13.3 % Normal 11.0-15.0 [facility] Comment on above: Performed By: #### C BC #### [facility] [address] [place] [address] Dr. Stephan Tavares Hematocrit (Bld) [Volume fraction] 36.7 % Normal 36.0-48.0 [facility] Comment on above: Performed By: #### C BC #### [facility] [address] [place] [address] Dr. Stephan Tavares Hemoglobin (Bld) [Mass/Vol] 12.6 g/dL Normal 12.0-16.0 [facility] Comment on above: Performed By: #### C BC #### [facility] [address] [place] [address] Dr. Stephan Tavares IG # 0.00 10e3/ul Normal 0.00-0.03 [facility] Comment on above: Performed By: #### C BC #### [facility] [address] [place] [address] Dr. Stephan Tavares IG % 0.0 % Normal 0.0-0.5 [facility] Comment on above: Performed By: #### C BC #### [facility] [address] [place] [address] Dr. Stephan Tavares LYMPH # 1.2 103/ul Normal 1.2-3.8 [facility] Comment on above: Performed By: #### C BC #### [facility] [address] [place] [address] Dr. Stephan Tavares Lymphocytes/100 WBC (Bld) 30.9 % Normal 20.5-60.0 [facility] Comment on above: Performed By: #### C BC #### [facility] [address] [place] [address] Dr. Stephan Tavares MANUAL DIFF REQ NO Normal [facility] Comment on above: Performed By: #### C BC #### [facility] [address] [place] [address] Dr. Stephan Tavares MCH (RBC) [Entitic mass] 30.6 pg Normal 26.7-34.0 [facility] Comment on above: Performed By: #### C BC #### [facility] [address] [place] [address] Dr. Stephan Tavares MCHC (RBC) [Mass/Vol] 34.3 g/dL Normal 29.9-35.2 [facility] Comment on above: Performed By: #### C BC #### [facility] [address] [place] [address] Dr. Stephan Tavares MCV (RBC) [Entitic vol] 89.1 fL Normal 81.0-99.0 [facility] Comment on above: Performed By: #### C BC #### [facility] [address] [place] [address] Dr. Stephan Tavares MONO # 0.2 103/ul Critically low 0.3-0.8 [facility] [facility] Comment on above: Performed By: #### C BC #### [facility] [address] [place] [address] Dr. Stephan Tavares Monocytes/100 WBC (Bld) 5.9 % Normal 1.7-12.0 [facility] Comment on above: Performed By: #### C BC #### [facility] [address] [place] [address] Dr. Stephan Tavares NEUT # 2.4 103/ul Normal 1.4-6.5 [facility] Comment on above: Performed By: #### C BC #### [facility] [address] [place] [address] Dr. Stephan Tavares Neutrophils/100 WBC (Bld) 60.9 % Normal 43.0-75.0 [facility] Comment on above: Performed By: #### C BC #### [facility] [address] [place] [address] Dr. Stephan Tavares Platelet mean volume (Bld) [Entitic vol] 10.9 fL Normal 9.5-13.5 [facility] Comment on above: Performed By: #### C BC #### [facility] [address] [place] [address] Dr. Stephan Tavares PLT 250 103/ul Normal 150-450 [facility] Comment on above: Performed By: #### C BC #### [facility] [address] [address] [address] Stephan Tavares RBC 4.12 106/ul Critically low 4.20-5.40 [facility] Comment on above: Performed By: #### C BC #### [facility] [address] [address] [address] Stephan Tavares WBC 3.9 103/ul Critically low 4.0-11.0 [facility] Comment on above: Performed By: #### C BC #### [facility] [address] [address] [address] Stephan Tavarse CRPon 05-22-2022 CRP [Mass/Vol] mg/L Normal <=1.0 [facility] Comment on above: Performed By: #### G RUBIN, LIPID #### [facility] [address] [place] [address] Dr. Stephan Tavares SED RATE WESTERGRENon 2022 SED RATE 4 mm/hr Normal <=20 [facility] Comment on above: Performed By: #### S EDR #### [facility] [address] [place] [address] Dr. Stephan Tavares URIC ACID SERUMon 05-22-2022 Urate [Mass/Vol] 4.5 mg/dL Normal 2.6-6.0 [facility] Comment on above: Performed By: #### G RUBIN, LIPID #### [facility] [address] [place] [address] Dr. Stephan Tavares Ambulatory Visit Summaryon 0 05-05-2022 Ambulatory Visit Summary ABEBY GARCIA :1990 Visit Date:05/05/2022 Ambulatory Visit Instructions Your Diagnosis Right shoulder pain Class 1 obesity due to excess calories in adult Your Care Team Attending Physician - Jaquan Paula Primary Care Physician - WALLY FOLEY MD This Is Your Medications List Misc Prescription ( minipill Birthcontrol) acetaminophen-codeine (acetaminophen-codeine 300 mg-15 mg oral tablet) cyclobenzaprine (cyclobenzaprine 5 mg Tab) dicyclomine (Bentyl 10 mg Cap) duloxetine (Cymbalta) escitalopram (Lexapro 10 mg Tab) escitalopram (Lexapro 5 mg oral tablet) gabapentin (gabapentin 300 mg Cap) iron polysaccharide (ProFe) levothyroxine levothyroxine (levothyroxine 125 mcg (0.125 mg) Tab) liothyronine metformin mirtazapine (mirtazapine 15 mg Tab) mirtazapine (mirtazapine 15 mg Tab) multivitamin (Multi Vitamins oral tablet) ondansetron (Zofran ODT 4 mg Tab) pantoprazole (Protonix 40 mg Tab-DR) promethazine (promethazine 25 mg Tab) promethazine (promethazine 25 mg Tab) sertraline sucralfate (Carafate Tab) Procedures Performed Revision (01/29/2022), Gastric sleeve (02/15/2021), Esophagogastroduodenos copy (01/20/2021), Hysterectomy (11/04/2020). Discharge Vitals Heart Rate (Peripheral) 84 Respiratory Rate 16 Blood Pressure 134/86 Height 167.24 cm Height 66 in Weight 84.5 kg Weight 185.9 lb BMI 30.21 What to do next Scheduled Follow-Up Appointments Wednesday 8:20 AM EDT With: Jaquan Paula Where: [facility] Family Medicine Office/Clini c Noteon 05-05-2022 Family Medicine Office/Clinic Note Chief Complaint est care with JS. pt also c/o rt shoulder pain d/t reinjury. HPI Staff Establish Care: pt also c/o rt shoulder pain, seen by ortho but referred back to PCP, xray revealed arthritis, MRI scheduled thurs History: Any previous diagnosis: see problem list History of seeing any specialist(s): yes When was your last doctor visit: over a yr ago Last provider: yessica obrien Any recent labs: no Health Maintenence UTD: Colonoscopy: 2020 PSA: Mammogram: no Pelvic/pap: greater than a yr Acute: Current issues/complaints: rt shoulder pain, seen by kaykay obrien, scheduled for MRI thurs History of Present Illness pt presents today with right shoulder pain. she was seen by ortho and has MRI scheduled Review of Systems PHQ Score Initial Depression Screen Score: 0 ROS - Provider Constitutional: no fever, no chills, no sweats, no fatigue Respiratory: no shortness of breath, no cough, no orthopnea, no wheezing. Cardiovascular: no chest pain, no palpitations, no edema. Neurologic: no headache, no dizziness, no numbness, no weakness. Musculoskeletal: right should pain that radiates to axilla and down arm to elbow Physical Exam Vitals & Measurements HR: 84(Peripheral) RR: 16 BP: 134/86 SpO2: 100% HT: 66 in HT: 167.24 cm WT: 84.5 kg WT: 185.9 lb BMI: 30.21 General: alert, no acute distress ENMT: oral mucosa moist, no pharyngeal erythema or exudate Cardiovascular: regular rate and rhythm, normal peripheral perfusion Respiratory: Lungs CTA, respirations non labored Extremities: no deformity, no trauma Neurological: oriented x 4, LOC appropriate for age, CN II-XII intact, motor strength equal & normal bilaterally, speech normal musculoskeletal: discomfort with active and passive ROM Assessment/Plan 1. Right shoulder pain (M25.511: Pain in right shoulder) Pt presents today with severe right shoulder pain. was seen by orth and has MRI scheduled for . She was prescribed medrol dose pack and was told to call PCP for other pain management. pt is very tearful and says I can't even sleep because the pain is so bad. OARRS report reviewed. will order T3 and muscle relaxer to get her through until she meets back with ortho for a plan of care. all questions answered. pt will also return for Well woman exam. c/o dyspareunia since hysterectomy. Will give kenalog in office today to help relieve pain Ordered: acetaminophen-codeine, 1 tab(s), Oral, BID, 30 tab(s), Refill(s) 0, [id number], 167.2, cm, 05/05/22 13:30:00 EDT, Height/Length Dosing, 84.5, kg, 05/05/22 13:30:00 EDT, Weight Dosing cyclobenzaprine, 5 mg = 1 tab(s), Oral, TID, X 7 day(s), # 21 tab(s), Refills(s) 0, Pharmacy: [id number], 167.2, cm, 05/05/22 13:30:00 EDT, Height/Length Dosing, 84.5, kg, 05/05/22 13:30:00 EDT, Weight Dosing triamcinolone, 40 mg = 1 mL, Injection, IntraMuscular, Once, Stop date 05/05/22 14:30:00 EDT, Routine, Start date 05/05/22 14:30:00 EDT, 05/05/22 14:30:00 EDT 2. Class 1 obesity due to excess calories in adult (E66.09: Other obesity due to excess calories) BMI education complete Ordered: triamcinolone, 40 mg = 1 mL, Injection, IntraMuscular, Once, Stop date 05/05/22 14:30:00 EDT, Routine, Start date 05/05/22 14:30:00 EDT, 05/05/22 14:30:00 EDT Follow-up No qualifying data available Problem List/Past Medical History Ongoing BMI 30.0-30.9,adult LUQ pain Nausea Historical Allergic rhinitis Anemia Hypothyroidism Metabolic syndrome PCOS- polycystic ovary syndrome Procedure/Surgical History Revision (01/29/2022), Gastric sleeve (02/15/2021), Esophagogastroduodenos copy (01/20/2021), Hysterectomy (11/04/2020). Medications minipill Birthcontrol, 0, Daily, Not taking acetaminophen-codeine 300 mg-15 mg oral tablet, 1 tab(s), Oral, BID Bentyl 10 mg Cap, 20 mg= 2 cap(s), Oral, QID, Not taking Carafate Tab, 1 gm= 1 tab(s), Oral, QID, Not taking cyclobenzaprine 5 mg Tab, 5 mg= 1 tab(s), Oral, TID Cymbalta, 60 mg, Oral, BID, Not taking gabapentin 300 mg Cap, See Instructions, Not taking levothyroxine, 75 mcg, Oral, Daily, Not taking levothyroxine 125 mcg (0.125 mg) Tab, 125 mcg= 1 tab(s), Oral, Daily Lexapro 10 mg Tab, 10 mg= 1 tab(s), Oral, Daily Lexapro 5 mg oral tablet, 5 mg= 1 tab(s), Oral, Daily liothyronine, 5 mcg, Oral, Daily metformin, 1000 mg, Oral, BID, Not taking mirtazapine 15 mg Tab mirtazapine 15 mg Tab, 15 mg= 1 tab(s), Oral, Once a day (at bedtime) Multi Vitamins oral tablet, 1 tab(s), Oral, Daily ProFe, 180 mg, Oral, Daily, Not taking promethazine 25 mg Tab, 25 mg= 1 tab(s), Oral, q6hr, PRN, Not taking promethazine 25 mg Tab, 25 mg= 1 tab(s), Oral, q6hr, PRN, Not taking Protonix 40 mg Tab-DR, 40 mg= 1 tab(s), Oral, BID, Not taking sertraline, 100 mg, Oral, Daily, Not taking Zofran ODT 4 mg Tab, 4 mg= 1 tab(s), Oral, TID, Not taking Allergies codeine (unknown) Social History Alcohol - Denies Alcohol Use, 12/20/2020 (more content not included)... Normal [facility] Comment on above: Result Comment: Elec tronically Signed By: Jaquan Paula\.br\Date and Time Signed: 05/05/22 15:34 EDT ANES POSTPROC EVALon 023 ANES POSTPROC EVAL HNO ID: [id number] Author: Malka Sequeira MD Service: Anesthesiology Author Type: Anesthesiologist Type: Anesthesia Postprocedure Evaluation Filed: 03/06/2022 3:23 PM Note Text: POST ANESTHESIA EVALUATION NOTE : 1990 Procedure Summary Date: 03/06/22 Room / Location: [facility] - ENDO Anesthesia Start: 1430 Anesthesia Stop: 1453 Procedure: EGD - THERAPEUTIC, EUS, OR TUBE INTERVENTIONS Diagnosis: Esophageal dysphagia S/P gastric bypass (Epigastric abdominal pain) Scheduled Providers: Deacon Kat MD; Malka Sequeira MD Responsible Provider: Malka Sequeira MD Anesthesia Type: MAC ASA Status: 3 Anesthesia Type: MAC Last Vitals Vitals Value Taken Time BP 112/69 03/06/22 1515 Temp 36 03/06/22 1523 Pulse 68 03/06/22 1523 Resp 16 03/06/22 1523 SpO2 100 % 03/06/22 1521 Vitals shown include unvalidated device data. Post Anesthesia Patient Status Patient Evaluation: PACU. PACU/ICU Patient Condition: stable. Anticipated Disposition: phase 2 then home. Neurological Status: aware and responsive. Pulmonary Status: breathing comfortably on room air Airway Control: returned to baseline unsupported. Cardiovascular Status: stable. Pain Management: clinically adequate Postoperative Hydration: acceptable. Intraoperative Events: no significant anesthesia events Recommendation: continue current plan of care. Anesthesia Observations No Documentation SIGNATURE: Malka Sequeira MD PATIENT NAME: Abbey Garcia DATE: March 06, 2022 TIME: 3:23 PM CSN: [id number] Normal [facility] ANES PRE-OPon 03-06-2022 ANES PRE-OP HNO ID: [id number] Author: Malka Sequeira MD Service: Anesthesiology Author Type: Anesthesiologist Type: Anesthesia Preprocedure Evaluation Filed: 03/06/2022 2:07 PM Note Text: ANESTHESIOLOGY DAY OF SURGERY NOTE : 1990 Procedure Information Date/Time: 03/06/22 1415 Scheduled providers: Deacon Kat MD; Malka Sequeira MD Procedure: EGD - THERAPEUTIC, EUS, OR TUBE INTERVENTIONS Location: [facility] - ENDO Estimated body mass index is 31.96 kg/m? as calculated from the following: Height as of 02/04/22: 167.6 cm (5' 6 ). Weight as of 03/05/22: 89.8 kg (198 lb). Most recent hematocrit and potassium results: Hematocrit 33.3 01/30/2022 Hematocrit (POCT) 36 02/03/2020 Potassium 3.7 01/30/2022 Potassium (POCT) 3.6 02/03/2020 Relevant Problems ANESTHESIA (+) RICHAR on CPAP (+) PONV (postoperative nausea and vomiting) CARDIO (+) Benign essential HTN ENDO (+) Hypothyroid GI (+) GERD (gastroesophageal reflux disease) (+) Gastric ulcer PULMONARY (+) Asthma (+) RICHAR on CPAP I - PHYSICAL EVALUATION AIRWAY Patient intubated: No. Tracheostomy tube not present Mallampati: II. TM distance: >3 FB. Neck ROM: full ROM without neurological symptoms. Mouth opening: adequate. Short neck: no. Thick neck: no Blanco present: no DENTAL Normal dental observations. Dental findings: teeth intact. Additional exam findings: yes. CARDIOVASCULAR Normal cardiovascular observations. Rhythm: regular Rate: normal PULMONARY Normal pulmonary observations. Breath sounds clear to auscultation. II - ANESTHESIA PLAN ASA Score: 3 Anesthetic Plan: MAC The patient is not a current smoker. NPO Status: adequate Beta Blanka Monitoring Plan Monitoring plan: standard ASA. Post Procedure Analgesic Plan Postoperative analgesic plan: multimodal analgesia. Informed Consent Anesthetic risks, benefits, alternatives, personnel and consent discussed: yes. Patient / Responsible Alliance Party agrees to proceed: yes Patient / Surrogate agrees to blood products: yes Significant changes in the patient condition since the History and Physical, not otherwise documented in primary service progress note: no. Potential Anesthesia issues that may suggest increased risk of complications or contraindication to planned procedure: none. Vitals Value Taken Time BP 138/68 03/06/22 1300 Pulse 68 03/06/22 1300 Resp 16 03/06/22 1300 Temp 36 ?C (96.8 ?F) 03/06/22 1300 SpO2 98 % 03/06/22 1300 Outpatient Medications as of 03/06/2022 Medication Sig - omeprazole (PRILOSEC) 40 mg capsule Take 1 capsule by mouth once daily. - polyethylene glycol 3350 (MIRALAX) 17 gram/dose powder Take 17 g by mouth once daily as needed for constipation. Dissolve dose in 4 - 8 ounces of liquid and take as directed. - topiramate (TOPAMAX) 100 mg tablet Take 100 mg by mouth twice daily. - mirtazapine (REMERON) 15 mg tablet Take 1 tablet by mouth daily at bedtime. - escitalopram oxalate (LEXAPRO) 10 mg tablet TAKE 1 TABLET BY MOUTH EVERY DAY - escitalopram oxalate (LEXAPRO) 5 mg tablet TAKE 1 TABLET BY MOUTH ONCE DAILY. TAKE WITH 10 MG TABLET. - hydrOXYzine HCl (ATARAX) 25 mg tablet TAKE 1 TABLET BY MOUTH TWICE A DAY NEEDED FOR ANXIETY/INSOMNIA - levothyroxine (SYNTHROID) 100 mcg tablet Take 1 tablet by mouth once daily. - famotidine (PEPCID) 40 mg tablet Take 1 tablet by mouth once daily. - magnesium gluconate (MAGONATE) 27 mg (500 mg) tab Take 500 mg by mouth once daily. - liothyronine (CYTOMEL) 5 mcg tablet Take 5 mcg by mouth once daily. - methocarbamol (ROBAXIN) 500 mg tablet Take 1 tablet by mouth four times daily as needed. - prochlorperazine (COMPAZINE) 5 mg tablet Take 2 tablets by mouth every 6 hours as needed. - multivitamin tablet Take 1 tablet by mouth. Bariatric chewable 2 a day - fluticasone propion/salmeterol (ADVAIR HFA INHALATION) Inhale as instructed. - ALBUTEROL INHALATION Inhale as instructed. No current facility-administered medications on file as of 03/06/2022. I have interviewed and examined the patient. I have reviewed the medical record and/or the pre-anesthesia evaluation, pertinent labs, and test results. This contains updated information obtained within 48 hours of Surgery/Procedure. SIGNATURE: Malka Sequeira MD PATIENT NAME: Abbey Garcia DATE: March 06, 2022 TIME: 2:07 PM CSN: [id number] [facility] EGD - THERAPEUTIC, EUS, OR T UBE INTERVENTIONSon 03-06-2022 [facility] HISTORY PHYSICALon 3 HISTORY PHYSICAL HNO ID: [id number] Author: Tim Reagan MD Service: General Surgery Author Type: Resident Type: HANDP Filed: 03/06/2022 2:14 PM Note Text: Attestation signed by Deacon Kat MD at 03/07/2022 8:18 PM I saw and evaluated the patient. Discussed with the resident and agree with resident's findings and plan as documented in the resident's note. Deacon Kat MD GENERAL SURGERY HISTORY AND PHYSICAL NOTE Abbey Garcia [id number] Subjective HISTORY OF PRESENT ILLNESS: Ms. Garcia is a 31 year old female s/p Tan en Y gastric bypass for EGD today PAST MEDICAL HISTORY Diagnosis Date Anemia Takes Pro FE daily. Arthritis Asthma Class 1 obesity without serious comorbidity with body mass index (BMI) of 33.0 to 33.9 in adult 09/25/2019 Gastric ulcer 2014 GERD (gastroesophageal reflux disease) History of IBS Hypertension Hypothyroid RICHAR on CPAP wears mask every night PCOS (polycystic ovarian syndrome) PONV (postoperative nausea and vomiting) 01/29/2022 Ventral hernia without obstruction or gangrene PAST SURGICAL HISTORY Procedure Laterality Date APPENDECTOMY 08/2019 CHOLECYSTECTOMY COLONOSCOPY GEN ANES EGD F TOTAL ABDOMINAL HYSTERECTOMY PAST SURGICAL HISTORY OF Bilateral arthroscopic knee surgery- was catcher in [employer] PAST SURGICAL HISTORY OF 08/2020 gastric sleeve PICC LINE INSERT/CONSULT 12/24/2020 VAGINAL DELIVERY AFTER DELIVERY Three C-sections FAMILY HISTORY Problem Relation Age of Onset Diabetes Mother Hypertension Mother Obesity Mother Hypertension Father Hypertension Brother Obesity Brother Hypertension Brother Obesity Brother Social History Tobacco Use Smoking status: Never Smokeless tobacco: Never Substance Use Topics Alcohol use: Not Currently Drug use: Never Comment: denies tx for drug/alcohol abuse in the past. (Not in a hospital admission) No current facility-administered medications for this encounter. ALLERGIES Allergen Reactions Adhesive Tape-Silic* Intolerance Sensitive to certain adhesive tapes. Redness and itchy. Codeine GI Upset Nsaids (Non-Steroid* Contraindication-Medic al Surgical S/p RYGB Objective PHYSICAL EXAM: BP 138/68 Pulse 68 Temp (Src) 96.8 (Temporal) Resp 16 SpO2 98% LMP 08/19/2020 O2 Therapy: Room Air Physical Exam Performed General: not in acute distress CV: +S1, S2; RRR; no m/r/g; regular rate Pulm: good respiratory effort; CTA b/l DATA: Diagnostic tests reviewed for today's visit: Most recent labs and imaging results. Results for orders placed or performed in visit on 02/09/22 PT ED PATIENT INFORMATION Result Value Ref Range Director Of Industrial Relations Provider ROBBIE your patient ABBEY GARCIA started their Chandrika on 02-10-2022 and completed it on 02-10-2022 Chandrika program: PATIENT SAFETY AND FALL PREVENTION Assessment/Plan ASSESSMENT AND PLAN Ms. Garcia is a 31 year old female s/p Tan en Y gastric bypass for EGD today [facility] NURSING PROGon 03-06-2022 NURSING PROG HNO ID: [id number] Author: Eli Carter RN Service: Nursing Author Type: Registered Nurse Type: Nursing Progress Note Filed: 03/06/2022 1:00 PM Note Text: PATIENT EDUCATION TOPIC: PROCEDURE / SURGERY: Pre Procedure Teaching: Surgical Safety Principles PATIENT NAME: Abbey Garcia PATIENT LOCATION: Room/bed info not found READINESS TO LEARN COGNITIVE ABILITY: Alert and oriented MOTIVATION TO LEARN: Eager FAMILY SUPPORT: None - Unavailable/disinteres darvin INSTRUCTION PROVIDED TO: Patient PATIENT LEARNS BEST BY: Individual Instruction FACTORS AFFECTING LEARNING: None PHYSICAL LIMITATIONS AFFECTING LEARNING: None LEARNING RESPONSE DIAGNOSIS: ADULT: epigastric pain, n/v PATIENT/FAMILY RESPONSE: Verbalizes understanding of: PRE-PROCEDURE INSTRUCTIONS-Correct action to take to follow pre-procedure instructions METHOD OF INSTRUCTION: Individual instruction FOLLOW-UP PLAN: Complete - No need for follow-up INSTRUCTIONAL AIDS USED: NA SUPPLEMENTAL MATERIAL PROVIDED TO PATIENT: None REFERRAL (RECOMMENDATION): None Electronically Signed By: Eli Carter [facility] Upper GI endoscopyon 023 Upper GI endoscopy [facility] Gastrointestinal Endoscopy Patient Name: Abbey Garcia Procedure Date: 03/06/2022 2:09 PM Date of : 1990 Admit Type: Outpatient Age: 31 Room: [place] [address] Gender: Female Note Status: Finalized Attending MD: Deacon Kat MD Procedure: Upper GI endoscopy Indications: Epigastric abdominal pain Providers: Deacon Kat MD, Ramona Wolfe, DEE, Nahed Woods, DEE (Assisting Nurse) Patient Profile: This is a 31 year old female. Refer to note in patient chart for documentation of history and physical. Patient has symptoms of acute nausea. She is status post gastrectomy within the past three months. Referring Physician: Breanna Stern CNP (Referring MD) Medicines: Monitored Anesthesia Care Complications: No immediate complications. Procedure: Pre-Anesthesia Assessment: - Prior to the procedure, a History and Physical was performed, and patient medications and allergies were reviewed. The patient is competent. The risks and benefits of the procedure and the sedation options and risks were discussed with the patient. All questions were answered and informed consent was obtained. Patient identification and proposed procedure were verified by the physician, the nurse and the brand analyst in the endoscopy suite. Mental Status Examination: alert and oriented. Airway Examination: normal oropharyngeal airway and neck mobility. Respiratory Examination: clear to auscultation. CV Examination: normal. ASA Grade Assessment: II - A patient with mild systemic disease. After reviewing the risks and benefits, the patient was deemed in satisfactory condition to undergo the procedure. The anesthesia plan was to use monitored anesthesia care (MAC). Immediately prior to administration of medications, the patient was re-assessed for adequacy to receive sedatives. The heart rate, respiratory rate, oxygen saturations, blood pressure, adequacy of pulmonary ventilation, and response to care were monitored throughout the procedure. The physical status of the patient was re-assessed after the procedure. After obtaining informed consent, the endoscope was passed under direct vision. Throughout the procedure, the patient's blood pressure, pulse, and oxygen saturations were monitored continuously. The Endoscope was introduced through the mouth, and advanced to the efferent jejunal loop. The upper GI endoscopy was accomplished without difficulty. The patient tolerated the procedure well. Moderate Sedation: MAC anesthesia was administered by the anesthesia team. Total Procedure Duration: 0 hours 9 minutes 26 seconds Findings: The esophagus was normal. 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 The gastrojejunal anastomosis was characterized by congestion, edema, erosion, erythema, friable mucosa and the presence of no stomal ulceration. Anastamosis was approximately 15 mm (created over 40 f bougie). This was traversed. The mcwqc-wl-[id number] limb was characterized by healthy appearing mucosa. A TTS dilator was passed through the scope. Dilation with a 15-16.5-18 mm anastomotic balloon dilator was performed. The dilation site was examined following endoscope reinsertion and showed mild improvement in luminal narrowing. Estimated blood loss was minimal. Impression: - Normal esophagus. - Tan-en-Y gastrojejunostomy with gastrojejunal anastomosis characterized by congestion, edema, erosion, erythema, friable mucosa and no stomal ulceration. Dilated. - No specimens collected. Recommendation: - Discharge patient to home. - Resume previous diet. - Use a proton pump inhibitor PO BID. Procedure Code(s): --- Professional --- 99291, Esophagogastroduodenos copy, flexible, transoral; with dilation of gastric/duodenal stricture(s) (eg, balloon, bougie) Diagnosis Code(s): --- Professional --- Z98.0, Intestinal bypass and anastomosis status R10.13, Epigastric pain CPT copyright 2020 [employer]. All rights reserved. The codes documented in this report are preliminary and upon certified professional coder review may be revised to meet current compliance requirements. Attending Participation: I was present and participated during the entire procedure, including non-paula portions. Scope In: 2:35:44 PM Scope Out: 2:45:10 PM MD Deacon Castañeda MD 03/06/2022 2:50:35 PM This report has been signed electronically by Deacon Kat MD Number of Addenda: 0 Note Initiated On: 03/06/2022 2:09 PM Estimated Blood Loss: Estimated blood loss: none. Normal [facility] CNPNon 03-05-2022 CNPN Normal [facility] US PELVIS AND TRANSVAGon US PELVIS AND TRANSVAG EXAMINATION: US PELVIS AND TRANSVAG HISTORY: Cyst of left ovary COMPARISON: 04/10/2021 FINDINGS: Transabdominal and transvaginal images The uterus is surgically absent The right ovary is surgically absent The left ovary measures 3.5 x 2.0 x 2.7 cm. Normal color and Doppler areas of anechoic echogenicity measuring up to 2.1 x 1.3 cm. IMPRESSION: Left ovarian simple cyst measuring 2.1 cm Electronically authenticated by: BALDOMERO MARCELO Date: 2022-03-03 16:24 Normal [facility] CBC AUTO DIFFon 02-17-2022 BASO # 0.0 103/ul Normal 0.0-0.1 [facility] Comment on above: Performed By: #### G RUBIN, LIPID #### [facility] [address] [address] Dr. Stephan Tavares Basophils/100 WBC (Bld) 0.8 % Normal 0.2-2.0 [facility] Comment on above: Performed By: #### G RUBIN, LIPID #### [facility] [address] [place] [address] Dr. Stephan Tavares EO # 0.1 103/ul Normal 0.0-0.7 [facility] Comment on above: Performed By: #### G RUBIN, LIPID #### [facility] [address] [place] [address] Dr. Stephan Tavares Eosinophils/100 WBC (Bld) 2.0 % Normal 0.9-7.0 [facility] Comment on above: Performed By: #### G RUBIN, LIPID #### [facility] [address] [place] [address] Dr. Stephan Tavares Erythrocyte distribution width (RBC) [Ratio] 13.2 % Normal 11.0-15.0 [facility] Comment on above: Performed By: #### G RUBIN, LIPID #### [facility] [address] [place] [address] Dr. Stephan Tavares Hematocrit (Bld) [Volume fraction] 36.2 % Normal 36.0-48.0 [facility] Comment on above: Performed By: #### G RUBIN, LIPID #### [facility] [address] [place] [address] Dr. Stephan Tavares Hemoglobin (Bld) [Mass/Vol] 12.6 g/dL Normal 12.0-16.0 [facility] Comment on above: Performed By: #### G RUBIN, LIPID #### [facility] [address] [place] [address] Dr. Stephan Tavares IG # 0.00 10e3/ul Normal 0.00-0.03 [facility] Comment on above: Performed By: #### G RUBIN, LIPID #### [facility] [address] [place] [address] Dr. Stephan Tavares IG % 0.0 % Normal 0.0-0.5 [facility] Comment on above: Performed By: #### G RUBIN, LIPID #### [facility] [address] [place] [address] Dr. Stephan Tavares LYMPH # 2.3 103/ul Normal 1.2-3.8 [facility] Comment on above: Performed By: #### G RUBIN, LIPID #### [facility] [address] [address] [address] Stephan Tavares Lymphocytes/100 WBC (Bld) 46.3 % Normal 20.5-60.0 [facility] Comment on above: Performed By: #### G RUBIN, LIPID #### [facility] [address] [address] [address] Stephan Tavares MANUAL DIFF REQ NO Normal [facility] Comment on above: Performed By: #### G RUBIN, LIPID #### [facility] [address] [place] [address] Dr. Stephan Tavares MCH (RBC) [Entitic mass] 29.2 pg Normal 26.7-34.0 [facility] Comment on above: Performed By: #### G RUBIN, LIPID #### [facility] [address] [place] [address] Dr. Stephan Tavares MCHC (RBC) [Mass/Vol] 34.8 g/dL Normal 29.9-35.2 [facility] Comment on above: Performed By: #### G RUBIN, LIPID #### [facility] [address] [place] [address] Dr. Stephan Tavares MCV (RBC) [Entitic vol] 84.0 fL Normal 81.0-99.0 [facility] Comment on above: Performed By: #### G RUBIN, LIPID #### [facility] [address] [place] [address] Dr. Stephan Tavares MONO # 0.4 103/ul Normal 0.3-0.8 [facility] Comment on above: Performed By: #### G RUBIN, LIPID #### [facility] [address] [place] [address] Dr. Stephan Tavares Monocytes/100 WBC (Bld) 8.7 % Normal 1.7-12.0 [facility] Comment on above: Performed By: #### G RUBIN, LIPID #### [facility] [address] [place] [address] Dr. Stephan Tavares NEUT # 2.1 103/ul Normal 1.4-6.5 [facility] Comment on above: Performed By: #### G RUBIN, LIPID #### [facility] [address] [place] [address] Dr. Stephan Tavares Neutrophils/100 WBC (Bld) 42.2 % Critically low 43.0-75.0 [facility] Comment on above: Performed By: #### G RUBIN, LIPID #### [facility] [address] [place] [address] Dr. Stephan Tavares Platelet mean volume (Bld) [Entitic vol] 11.1 fL Normal 9.5-13.5 [facility] Comment on above: Performed By: #### G RUBIN, LIPID #### [facility] [address] [place] [address] Dr. Stephan Tavares PLT 228 103/ul Normal 150-450 [facility] Comment on above: Performed By: #### G RUBIN, LIPID #### [facility] [address] [place] [address] Dr. Stephan Tavares RBC 4.31 106/ul Normal 4.20-5.40 [facility] Comment on above: Performed By: #### G RUBIN, LIPID #### [facility] [address] [place] [address] Dr. Stephan Tavares WBC 5.1 103/ul Normal 4.0-11.0 [facility] Comment on above: Performed By: #### G RUBIN, LIPID #### [facility] [address] [place] [address] Dr. Stephan Tavares MAGNESIUMon 02-17-2022 Magnesium [Mass/Vol] 1.8 mg/dL Normal 1.8-2.4 [facility] Comment on above: Performed By: #### B MP, MG #### [facility] [address] [place] [address] Dr. Stephan Tavares PROF CHEM 8 (BAS METB)on Anion gap [Moles/Vol] 16.1 mmol/L Normal [facility] Comment on above: Performed By: #### B MP, MG #### [facility] [address] [place] [address] Dr. Stephan Tavares Calcium [Mass/Vol] 8.7 mg/dL Normal 8.5-10.1 [facility] [place] [facility] Comment on above: Performed By: #### B MP, MG #### [facility] [address] [place] [address] Dr. Stephan Tavares Chloride [Moles/Vol] 104 mmol/L Normal 98-107 [facility] Comment on above: Performed By: #### B MP, MG #### [facility] [address] [place] [address] Dr. Stephan Tavares CO2 [Moles/Vol] 22.0 mmol/L Normal 21.0-32.0 [facility] [place] [facility] Comment on above: Performed By: #### B MP, MG #### [facility] [address] [place] [address] Dr. Stephan Tavares Creatinine [Mass/Vol] 0.74 mg/dL Normal 0.55-1.02 [facility] Comment on above: Performed By: #### B MP, MG #### [facility] [address] [place] [address] Dr. Stephan Tavares EGFR-AF BERMUDIAN >60 Normal >=60 [facility] [place] [facility] Comment on above: Performed By: #### B MP, MG #### [facility] [address] [place] [address] Dr. Stephan Tavares EGFR-NON AF BERMUDIAN >60 Normal >=60 [facility] Comment on above: Performed By: #### B MP, MG #### [facility] [address] [place] [address] Dr. Stephan Tavares Glucose [Mass/Vol] 88 mg/dL Normal 74-106 [facility] [place] [facility] Comment on above: Performed By: #### B MP, MG #### [facility] [address] [place] [address] Dr. Stephan Tavares Potassium [Moles/Vol] 4.1 mmol/L Normal 3.5-5.1 [facility] Comment on above: Result Comment: spec imen hemolysed. result could be spurious. suggest repeat. Performed By: #### B MP, MG #### [facility] [address] [place], [place] [address] Dr. Stephan Tavares Sodium [Moles/Vol] 138 mmol/L Normal 136-145 [facility] Comment on above: Performed By: #### B MP, MG #### [facility] [address] [address] [address] Stephan Tavares Urea nitrogen [Mass/Vol] 12.0 mg/dL Normal 7.0-18.0 [facility] Comment on above: Performed By: #### B MP, MG #### [facility] [address] [place], [place] [address] Dr. Stephan Tavares Urea nitrogen/Creatinine [Mass ratio] 16.2 mg/mg Normal [facility] Comment on above: Performed By: #### B MP, MG #### [facility] [address] [address] [address] Stephan Tavares Basic metabolic 2000 panelon 01-30-2022 Anion gap [Moles/Vol] 10 mmol/L Normal 9-18 [facility] Comment on above: Order Comment: Speci men Type: BLOOD SPECIMENOrdering Facility: [facility] Address: [address] [address] Performed By: #### 2 4321-2 ####[facility] LABORATORYCLIA [id number] [place] [address] [place] Calcium [Mass/Vol] 8.6 mg/dL Normal 8.5-10.2 [facility] Comment on above: Order Comment: Speci men Type: BLOOD SPECIMENOrdering Facility: [facility] Address: [address] [address] Performed By: #### 2 4321-2 ####OS[facility] LABORATORYCLIA [id number] [place] [id number] [place] Chloride [Moles/Vol] 110 mmol/L High 97-105 [facility] Comment on above: Order Comment: Speci men Type: BLOOD SPECIMENOrdering Facility: [facility] Address: [address] [address] Performed By: #### 2 4321-2 ####[facility] LABORATORYCLIA [id number] [place] [id number] [place] CO2 [Moles/Vol] 20 mmol/L Low 22-30 [facility] Comment on above: Order Comment: Speci men Type: BLOOD SPECIMENOrdering Facility: [facility] Address: [address] [address] Performed By: #### 2 4321-2 ####[facility] LABORATORYCLIA [id number] [place] [address] [place] Creatinine [Mass/Vol] 0.78 mg/dL Normal 0.58-0.96 [facility] Comment on above: Order Comment: Speci men Type: BLOOD SPECIMENOrdering Facility: [facility] Address: [address] [address] Performed By: #### 2 4321-2 ####[facility] LABORATORYCLIA [id number] [address] ESTIMATED GLOMERULAR FILTRATION RATE 104 mL/min/1.73m??? Normal >=60 [facility] Comment on above: Order Comment: Speci men Type: BLOOD SPECIMENOrdering Facility: [facility] Address: [address] [place] [address] Result Comment: Rashmi mated Glomerular Filtration Rate (eGFR) is calculated using the 2020 CKD-EPI creatinine equation. This equation utilizes serum creatinine, sex, and age as parameters. The creatinine assay has traceable calibration to isotope dilution-mass spectrometry. Refer to KDIGO guidelines for clinical interpretation. In patients with unstable renal function, e.g. those with acute kidney injury, the eGFR may not accurately reflect actual GFR. Performed By: #### 2 4321-2 ####[facility] LABORATORYCLIA [id number] [place] [id number] [place] Glucose [Mass/Vol] 105 mg/dL High 74-99 [facility] Comment on above: Order Comment: Speci men Type: BLOOD SPECIMENOrdering Facility: [facility] Address: [address] [address] Result Comment: The [place] [employer] (ADA) provides guidance for cutoff values for fasting glucose and random glucose. The ADA defines fasting as no caloric intake for at least 8 hours. Fasting plasma glucose results between 100 to 125 mg/dL indicate increased risk for diabetes (prediabetes). Fasting plasma glucose results greater than or equal to 126 mg/dL meet the criteria for diagnosis of diabetes. In the absence of unequivocal hyperglycemia, results should be confirmed by repeat testing. In a patient with classic symptoms of hyperglycemia or hyperglycemic crisis, random plasma glucose results greater than or equal to 200 mg/dL meet the criteria for diagnosis of diabetes. Reference: Standards of Medical Care in Diabetes 2016, [place] [employer]. Diabetes Care. 2016.39(Suppl 1). Performed By: #### 2 4321-2 ####[facility] LABORATORYCLIA [id number] [place] [address] [place] Potassium [Moles/Vol] 3.7 mmol/L Normal 3.7-5.1 [facility] Comment on above: Order Comment: Speci men Type: BLOOD SPECIMENOrdering Facility: [facility] Address: [address] [address] Performed By: #### 2 4321-2 ####[facility] LABORATORYCLIA [id number] [place] [address] [place] Sodium [Moles/Vol] 140 mmol/L Normal 136-144 [facility] Comment on above: Order Comment: Speci men Type: BLOOD SPECIMENOrdering Facility: [facility] Address: [address] [address] Performed By: #### 2 4321-2 ####[facility] LABORATORYCLIA [id number] [place] [address] [place] Urea nitrogen [Mass/Vol] 10 mg/dL Normal 7-21 [facility] Comment on above: Order Comment: Speci men Type: BLOOD SPECIMENOrdering Facility: [facility] Address: [address] [address] Performed By: #### 2 4321-2 ####[facility] LABORATORYCLIA [id number] [place] [address] [place] CBC panel Auto (Bld)on 01-30 Erythrocyte distribution width (RBC) [Ratio] 13.7 % Normal 11.5-15.0 [facility] Comment on above: Order Comment: Speci men Type: BLOOD SPECIMENOrdering Facility: [facility] Address: [address] [address] Performed By: #### 5 8410-2 ####OS[facility] LABORATORYCLIA [id number] [address] Hematocrit (Bld) [Volume fraction] 33.3 % Low 36.0-46.0 [facility] Comment on above: Order Comment: Speci men Type: BLOOD SPECIMENOrdering Facility: [facility] Address: [address] [address] Performed By: #### 5 8410-2 ####OS[facility] LABORATORYCLIA [id number] [address] [facility] Hemoglobin (Bld) [Mass/Vol] 11.3 g/dL Low 11.5-15.5 [facility] Comment on above: Order Comment: Speci men Type: BLOOD SPECIMENOrdering Facility: [facility] Address: [address] [address] Performed By: #### 5 8410-2 ####[facility] LABORATORYCLIA [id number] [address] MCH (RBC) [Entitic mass] 29.5 pg Normal 26.0-34.0 [facility] Comment on above: Order Comment: Speci men Type: BLOOD SPECIMENOrdering Facility: [facility] Address: [address] [address] Performed By: #### 5 8410-2 ####OS[facility] LABORATORYCLIA [id number] [address] [place] MCHC (RBC) [Mass/Vol] 33.9 g/dL Normal 30.5-36.0 [facility] Comment on above: Order Comment: Speci men Type: BLOOD SPECIMENOrdering Facility: [facility] Address: [address] [address] Performed By: #### 5 8410-2 ####[facility] LABORATORYCLIA [id number] [place] [id number] [place] MCV (RBC) [Entitic vol] 86.9 fL Normal 80.0-100.0 [facility] Comment on above: Order Comment: Speci men Type: BLOOD SPECIMENOrdering Facility: [facility] Address: [address] [place] [address] Performed By: #### 5 8410-2 ####[facility] LABORATORYCLIA [id number] [place] [address] [place] Nucleated RBC (Bld) [#/Vol] 10*3/uL Normal <0.01 [facility] Comment on above: Order Comment: Speci men Type: BLOOD SPECIMENOrdering Facility: [facility] Address: [address] [place] [address] Performed By: #### 5 8410-2 ####[facility] LABORATORYCLIA [id number] [place] [address] [place] Platelet mean volume (Bld) [Entitic vol] 11.0 fL Normal 9.0-12.7 [facility] Comment on above: Order Comment: Speci men Type: BLOOD SPECIMENOrdering Facility: [facility] Address: [address] [place] [address] Performed By: #### 5 8410-2 ####[facility] LABORATORYCLIA [id number] [place] [address] [place] Platelets (Bld) [#/Vol] 189 10*3/uL Normal 150-400 [facility] Comment on above: Order Comment: Speci men Type: BLOOD SPECIMENOrdering Facility: [facility] Address: [address] [place] [address] Performed By: #### 5 8410-2 ####[facility] LABORATORYCLIA [id number] [place] [address] [place] RBC (Bld) [#/Vol] 3.83 10*6/uL Low 3.90-5.20 [facility] Comment on above: Order Comment: Speci men Type: BLOOD SPECIMENOrdering Facility: [facility] Address: [address] [facility] [address] [id number] Performed By: #### 5 8410-2 ####OS[facility] LABORATORYCLIA [id number] [place] [id number] [place] [facility] WBC (Bld) [#/Vol] 5.40 10*3/uL Normal 3.70-11.00 [facility] Comment on above: Order Comment: Speci men Type: BLOOD SPECIMENOrdering Facility: [facility] Address: [address] Performed By: #### 5 8410-2 ####[facility] LABORATORYCLIA [id number] [place] [id number] [facility] CNDSon 01-30-2022 CNDS HNO ID: [id number] Author: Dayna Lowe MD Service: General Surgery Author Type: Resident Type: Discharge Summary Filed: 01/30/2022 4:17 PM Note Text: Attestation signed by Deacon Kat MD at 01/31/2022 3:51 PM I saw and evaluated the patient. Discussed with the resident and agree with resident's findings and plan as documented in the resident's note. Uncomplicated stay after gastrojejunostomy. Deaocn Kat MD DISCHARGE SUMMARY PATIENT NAME: Abbey Garcia ADMISSION DATE: 01/29/2022 DISCHARGE DATE: 01/30/2022 ATTENDING PHYSICIAN: Deacon Kat MD Code Status: Not on file Highest Readmission Risk Score: 11 The 30 day readmissions risk score is derived from an internally validated risk model which evaluates patient level characteristics, utilization history, medication orders and lab results up until the day of discharge. Patients with a score of 40 or above are considered highest risk for readmission. Specific patient level drivers will be listed at the bottom of the summary. CONSULTING TEAMS DURING HOSPITALIZATION: None Treatment Team: Attending Provider: Deacon Kat MD REASON FOR HOSPITALIZATION: Severe gastroesophageal reflux s/p sleeve gastrectomy DIAGNOSIS: Principal Problem: Gastric reflux POA: Yes Active Problems: PONV (postoperative nausea and vomiting) POA: Unknown Resolved Problems: * No resolved hospital problems. * OPERATIONS DURING HOSPITALIZATION: Laparoscopic gastrojejunostomy without vagotomy PROCEDURES DURING HOSPITALIZATION: None HOSPITAL COURSE: Abbey Garcia presented to the hospital on 01/29/2022 for a planned sleeve to tan-en-y gastric bypass. On 01/29/2022 she was taken to the operating room where a tan-en-y gastric bypass was performed. The surgery was without complication and she tolerated the procedure well. Post-operatively she recovered in PACU before being transferred to a regular nursing floor. Her pain was initially controlled with IV medications and once she was tolerating liquids she was transitioned to po pain medications. Her home medications were restarted when she began eating. On the day of discharge, her pain was controlled, her vitals were stable, she was tolerating a diet and she was deemed stable to be discharged home. LABS AND PROCEDURES PENDING AT DISCHARGE: No pending results. INCIDENTAL OR ACTIONABLE FINDING (Last Refresh 01/30/2022 1035) None PATIENT CONDITION AT DISCHARGE: Stable DISCHARGE DISPOSITION: Home with Self Care Discharge Physical Exam: VITAL SIGNS: BP 121/58 Pulse 69 Temp 36.7 ?C (98.1 ?F) (Oral) Resp 17 Ht 167.6 cm (5' 6 ) Wt 94.8 kg (209 lb) LMP 08/19/2020 SpO2 96% BMI 33.73 kg/m? GENERAL: Alert, no distress, cooperative LUNGS: Lungs clear to auscultation, Good diaphragmatic excursion CARDIAC: Normal S1 and S2; no rubs, murmurs, or gallops ABDOMEN: Abdomen soft, non-tender, BS normal, No masses or organomegaly INFORMATION PROVIDED TO PATIENT: See discharge instructions WOUND/SURGICAL SITE CARE: Leave open to air DIET: Phase 2 bariatric diet ACTIVITY: Resume pre-hospital activity ALLERGIES Allergen Reactions Adhesive Tape-Silic* Intolerance Sensitive to certain adhesive tapes. Redness and itchy. Codeine GI Upset Nsaids (Non-Steroid* Contraindication-Medic al Surgical S/p RYGB DISCHARGE MEDICATION: Current Discharge Medication List START taking these medications acetaminophen (TYLENOL) 650 mg Take 650 mg by mouth every 6 hours as needed (headache). Qty: 28 tablet Refills: 0 prochlorperazine (COMPAZINE) 10 mg Take 10 mg by mouth every 6 hours as needed. Qty: 28 tablet Refills: 1 scopolamine (TRANSDERM-SCOP) patch 1.5 mg/72 hr (delivers 1 mg over 3 days) Apply one patch behind the ear at least 4 hours prior to exposure and every 3 days as needed. Qty: 3 Patch Refills: 0 oxyCODONE IR (ROXICODONE) 5 mg Take 5 mg by mouth every 6 hours as needed for pain. Qty: 5 tablet Refills: 0 Associated Diagnoses:Postoperativ e pain polyethylene glycol 3350 (MIRALAX, GLYCOLAX) 17 g Take 17 g by mouth once daily as needed for constipation. class= HTML_HHS > Dissolve dose in 4 - 8 ounces of liquid and take as directed. CONTINUE these medications which have NOT CHANGED topiramate (TOPAMAX) 100 mg Take 100 mg by mouth twice daily. multivitamin 1 tablet Take 1 tablet by mouth. Bariatric chewable 2 a day mirtazapine (REMERON) 15 mg Take 15 mg by mouth daily at bedtime. Qty: 90 tablet Refills: 1 Associated Diagnoses:Generalized anxiety disorder; Major depressive disorder, recurrent episode, moderate (HCC) !! escitalopram oxalate (LEXAPRO) 10 mg tablet TAKE 1 TABLET BY MOUTH EVERY DAY Qty: 90 tablet Refills: 1 Comments: DX Code Needed . Associated Diag (more content not included)... [facility] PT EDon 01-30-2022 PT ED HNO ID: [id number] Author: Milagros Forde DTR Service: Nutrition Therapy Author Type: Senior Front End Developer Type: Patient Education Filed: 01/30/2022 2:15 PM Note Text: NUTRITION THERAPY PATIENT EDUCATION SERVICE DATE: 01/30/2022 SERVICE TIME: 2:00 PM TOPIC: Diet: bariatric revision Unable to see patient. Added to continuum of care list to follow up in outpatient. Follow-Up Plan: Recommend - Recommend continued instruction and follow up as directed Referral (Recommendation): Nutrition - Outpatient MNT Billing: SIGNATURE: Milagros Forde DTR PATIENT NAME: Abbey Garcia DATE: January 30, 2022 TIME: 2:12 PM PAGER: [facility] ANES POSTPROC EVALon 022 ANES POSTPROC EVAL HNO ID: [id number] Author: Angela Andrade MD Service: Anesthesiology Author Type: Anesthesiologist Type: Anesthesia Postprocedure Evaluation Filed: 01/29/2022 2:51 PM Note Text: POST ANESTHESIA EVALUATION NOTE : 1990 Procedure Summary Date: 01/29/22 Room / Location: OR / OR Anesthesia Start: 733 Anesthesia Stop: 1032 Procedure: LAPAROSCOPIC GASTROJEJUNOSTOMY W/O VAGOTOMY (Abdomen) Diagnosis: Preoperative examination Gastroesophageal reflux disease with esophagitis without hemorrhage (Preoperative examination [Z01.818]) (Gastroesophageal reflux disease with esophagitis without hemorrhage [K21.00]) Surgeons: Deacon Kat MD Responsible Provider: Angela Andrade MD Anesthesia Type: general ASA Status: 2 Anesthesia Type: general Airway Type: ETT Last Vitals Vitals Value Taken Time BP 139/61 01/29/22 1430 Temp 36.2 ?C (97.2 ?F) 01/29/22 1032 Pulse 82 01/29/22 1449 Resp 12 01/29/22 1449 SpO2 96 % 01/29/22 1449 Vitals shown include unvalidated device data. Post Anesthesia Patient Status Patient Evaluation: PACU. PACU/ICU Patient Condition: stable. Anticipated Disposition: inpatient floor planned admission. Neurological Status: aware and responsive. Pulmonary Status: breathing comfortably on room air Airway Control: returned to baseline unsupported. Cardiovascular Status: stable. Pain Management: clinically adequate - multimodal analgesia pain management approach Postoperative Hydration: acceptable. Intraoperative Events: no significant anesthesia events Post Operative Nausea/Vomiting Status: PONV - significant post operative nausea or vomiting with additional medications being ordered/administered. Recommendation: continue current plan of care and further care per PACU/ICU/floor team. Anesthesia Observations No Documentation SIGNATURE: Angela Andrade MD PATIENT NAME: Abbey Garcia DATE: January 29, 2022 TIME: 2:50 PM CSN: [id number] [facility] ANES PRE-OPon 01-29-2022 ANES PRE-OP HNO ID: [id number] Author: Angela Andrade MD Service: Anesthesiology Author Type: Anesthesiologist Type: Anesthesia Preprocedure Evaluation Filed: 01/29/2022 7:13 AM Note Text: ANESTHESIOLOGY DAY OF SURGERY NOTE : 1990 Procedure Information Date/Time: 01/29/22729 Procedure: LAPAROSCOPIC GASTROJEJUNOSTOMY W/O VAGOTOMY (Abdomen) Location: [facility] OR06 / [facility] Surgeons: Deacon Kat MD Estimated body mass index is 33.73 kg/m? as calculated from the following: Height as of 01/28/22: 167.6 cm (5' 6 ). Weight as of 01/28/22: 94.8 kg (209 lb). Most recent hematocrit and potassium results: Hematocrit 42.9 01/28/2022 Hematocrit (POCT) 36 02/03/2020 Potassium 4.3 01/28/2022 Potassium (POCT) 3.6 02/03/2020 Relevant Problems ANESTHESIA (+) RICHAR on CPAP CARDIO (+) Benign essential HTN ENDO (+) Hypothyroid GI (+) GERD (gastroesophageal reflux disease) (+) Gastric ulcer PULMONARY (+) Asthma (+) RICHAR on CPAP I - PHYSICAL EVALUATION AIRWAY Patient intubated: No. Tracheostomy tube not present Mallampati: II. TM distance: >3 FB. Neck ROM: full ROM without neurological symptoms. Mouth opening: adequate. Short neck: no. Thick neck: no Blanco present: no DENTAL Dental findings: teeth intact. II - ANESTHESIA PLAN ASA Score: 2 Anesthetic Plan: general Airway type: ETT The patient is not a current smoker. NPO Status: adequate Beta Blanka Monitoring Plan Monitoring plan: standard ASA. Post Procedure Analgesic Plan Postoperative analgesic plan: parenteral or oral opioids and multimodal analgesia. Informed Consent Anesthetic risks, benefits, alternatives, personnel and consent discussed: yes. Patient / Responsible Alliance Party agrees to proceed: yes Patient / Surrogate agrees to blood products: Yes Significant changes in the patient condition since the History and Physical, not otherwise documented in primary service progress note: no. Potential Anesthesia issues that may suggest increased risk of complications or contraindication to planned procedure: none. Vitals Value Taken Time BP 128/79 01/29/22702 Pulse 65 01/29/22702 Resp 18 01/29/22702 Temp 36.4 ?C (97.5 ?F) 01/29/22702 SpO2 99 % 01/29/22702 Facility-Administered Medications as of 01/29/2022 Medication Dose Route Frequency - lidocaine 10 mg/mL (1 %) 1-2 mg injection (XYLOCAINE) 0.1-0.2 mL INTRADERMAL PRN - lactated ringers iv infusion 5-30 mL/hr INTRAVENOUS CONTINUOUS - NaCl 0.9% iv flush bag 20 mL INTRAVENOUS PRN - heparin 5,000 Units injection 5,000 Units SUBCUTANEOUS ONCE - ceFAZolin iv piggyback 2 g in D5W (iso-osmotic) 100 mL (ANCEF) 2 g INTRAVENOUS Pre-Op Once - acetaminophen 1,000 mg tab(s) (TYLENOL) 1,000 mg ORAL Pre-Op Once - scopolamine 1 mg over 3 days 1 Patch (TRANSDERM-SCOP) 1 Patch TRANSDERMAL q 72 HR And - scopolamine - REMOVE PATCH OTHER q 72 HR And - scopolamine - VERIFY patch OTHER q 8 H Outpatient Medications as of 01/29/2022 Medication Sig - topiramate (TOPAMAX) 100 mg tablet Take 100 mg by mouth twice daily. - mirtazapine (REMERON) 15 mg tablet Take 1 tablet by mouth daily at bedtime. - escitalopram oxalate (LEXAPRO) 10 mg tablet TAKE 1 TABLET BY MOUTH EVERY DAY - escitalopram oxalate (LEXAPRO) 5 mg tablet TAKE 1 TABLET BY MOUTH ONCE DAILY. TAKE WITH 10 MG TABLET. - levothyroxine (SYNTHROID) 100 mcg tablet Take 1 tablet by mouth once daily. - famotidine (PEPCID) 40 mg tablet Take 1 tablet by mouth once daily. - magnesium gluconate (MAGONATE) 27 mg (500 mg) tab Take 500 mg by mouth once daily. - liothyronine (CYTOMEL) 5 mcg tablet Take 5 mcg by mouth once daily. - hydrOXYzine HCl (ATARAX) 25 mg tablet TAKE 1 TABLET BY MOUTH TWICE A DAY NEEDED FOR ANXIETY/INSOMNIA - fluticasone propion/salmeterol (ADVAIR HFA INHALATION) Inhale as instructed. - ALBUTEROL INHALATION Inhale as instructed. I have interviewed and examined the patient. I have reviewed the medical record and/or the pre-anesthesia evaluation, pertinent labs, and test results. This contains updated information obtained within 48 hours of Surgery/Procedure. SIGNATURE: Angela Andrade MD PATIENT NAME: Abbey Garcia DATE: January 29, 2022 TIME: 7:11 AM CSN: [id number] [facility] BRIEF OP NOTon 01-29-2022 BRIEF OP NOT HNO ID: [id number] Author: Tab Oseguera MD, PhD Service: General Surgery Author Type: Resident Type: Brief Op Note Filed: 01/29/2022 10:24 AM Note Text: Attestation signed by Deacno Kat MD at 01/29/2022 11:02 AM [id number] Deacon Kat MD GENERAL SURGERY BRIEF OP NOTE LOG ID: [id number] Surgery/Procedure Date: 01/29/2022 Incision/Procedure Start Time: 8:10 AM Incision Close/Procedure End Time: 10:19 AM Surgeon(s) and Enrollment Representative(s): Surgeon(s) and Role: * Deacon Kat MD - Primary * Tab Oseguera MD, PhD - Resident - Assisting No Additional Staff Procedure(s): Procedure(s): LAPAROSCOPIC GASTROJEJUNOSTOMY W/O VAGOTOMY Anesthesia: General Findings: Gastric sleeve anatomy. RYGB with 120cm Tan limb and 60cm BP limb. Please see operative report for full details Drains: None IV Fluids: Per anesthesia report Estimated Blood Loss: 5 mls Estimated Urine Output: Per anesthesia report Specimens: * No specimens in log * Wound Classification: Class 2, operative wound clean-contaminated, gastrointestinal/bilia ry tract entered without significant spillage Complications: None Pre-Op/Pre-Procedure Diagnosis: Pre-Op Diagnosis Codes: * Preoperative examination [Z01.818] * Gastroesophageal reflux disease with esophagitis without hemorrhage [K21.00] Post-Op/Post-Procedure Diagnosis: Same SIGNATURE: Tab Oseguera MD, PhD PATIENT NAME: Abbey Garcia DATE: January 29, 2022 TIME: 10:24 AM PAGER/CONTACT #: [phone] From 6pm to 6 am and on weekends, please page general surgery on-call [phone] [facility] NURSING PROGon 01-29-2022 NURSING PROG HNO ID: [id number] Author: Camden Espinoza RN Service: Nursing Author Type: Registered Nurse Type: Nursing Progress Note Filed: 01/29/2022 6:10 PM Note Text: Transfer Note: Patient transferred into room/unit [facility] in stable condition. Actions taken: No futher actions taken at this time. Will continue to monitor and check with patient. Normal [facility] OPERATIVE NOon 01-29-2022 OPERATIVE NO HNO ID: [id number] Author: Deacon Kat MD Service: General Surgery Author Type: Physician Type: Operative Report Filed: 01/31/2022 3:37 PM Note Text: [facility] - Operative Report ABBEY GARCIA : 1990 AGE: 31. SEX: F PATIENT TYPE: I HOSP SVC: GENS LOCATION: [facility] ATTENDING PHYSICIAN: Deacon Kat M.D. CSN NUMBER: [id number] DATE OF SURGERY/PROCEDURE: 01/29/2022 INCISION/PROCEDURE START TIME: 8:10 AM INCISION CLOSE/PROCEDURE END TIME: 10:19 AM PREOPERATIVE DIAGNOSIS: 1. Gastroesophageal reflux disease. 2. History of sleeve gastrectomy. POSTOPERATIVE DIAGNOSIS: 1. Gastroesophageal reflux disease. 2. History of sleeve gastrectomy. SURGEON: Deacon Kat M.D. ANCILLARY SERVICES MANAGER THERAPY: Tab Oseguera, PhD. SURGERY/PROCEDURE: Laparoscopic Tan-en-Y gastrojejunostomy without vagotomy. ANESTHESIA: General OPERATIVE INDICATIONS: This 31-year-old woman has a history of sleeve gastrectomy. She has subjectively demonstrated gastroesophageal reflux on pH Huerta testing. The operative plan was a gastrojejunostomy to treat her reflux as she does not have a fundus for a fundoplication procedure. OPERATIVE FINDINGS: Completion upper endoscopy demonstrated the gastric pouch to be approximately 4 cm in length. The gastrojejunostomy was just smaller than the endoscope and was totally hemostatic. There was a negative air bubble leak test. DESCRIPTION OF PROCEDURE: The patient was positioned supine with her arms out. Her abdomen was prepped and draped. The abdomen was insufflated with a Veress needle in the left subcostal space. The abdomen was entered with a 10 mm 0 degree laparoscope and then a 12 mm optical trocar in the left periumbilical space. There was no trauma from the Veress needle and it was removed. After pre-injection with local anesthesia, additional 12 mm ports were placed in the periumbilical space in the right upper quadrant and 5 mm port was placed in left subcostal space. Scarring from prior surgery was already elevating the left lobe of the liver and thus no liver retractor was needed. A perigastric dissection was performed on the lesser curve of the stomach just below the 2nd transverse vascular bundle and the previously sleeve stomach was encircled. The stomach was divided at this location using a renner staple load. Then, the transverse mesocolon was elevated. The jejunum was run beginning at the ligament of Treitz until there was optimal reach up to the gastric pouch which was at approximately 50 cm. A gastrojejunostomy was then created at this location using a hand-sewn technique. Posterior row of 3-0 PDS was placed. A 40-Nigerien bougie was advanced into the pouch and a gastrotomy was created over the bougie. The mirror-image jejunotomy was created. The inner layer was completed with running 3-0 PDS. The bougie was advanced across the anastomosis just before this was tied and then a 2nd anterior outer layer of 3-0 PDS was placed and these were tied over the bougie. The afferent limb was divided with a 60 mm renner staple load. Then, the alimentary limb was run for approximately 110 cm where it was anastomosed to the tip of the biliopancreatic limb with a 45 mm sullivan staple load and the anastomosis was completed with a renner 60 mm staple load. The jejunojejunal mesenteric defect was closed with a running 2-0 silk suture. The Tan limb to transverse mesocolic defect was closed with a 2-0 silk suture in a pursestring fashion. Laparoscopic bowel clamp was placed across the Tan limb. A leak test was performed by insufflating the bougie and there were no bubbles. The bougie was removed. The Olympus adult upper endoscope was passed down the esophagus into the gastric pouch and endoscopic findings were described above. The pouch was desufflated and the endoscope was removed. The bowel clamp was removed. Final inspection was made for hemostasis. The abdomen was desufflated. The ports were removed. The skin was injected with local anesthesia. The skin was closed with 4-0 Monocryl. Dressing of Exofin was applied. DRAINS: None. COMPLICATIONS: None. SPECIMEN: None. ESTIMATED BLOOD LOSS: 10 mL. ATTESTATION: I performed the procedure with assistance. Deacon Kat M.D. ARAMIS:[id number] Normal [facility] SARS-CoV-2 RNA Resp Ql HANK+p robeon 01-29-2022 SARS-CoV-2 (COVID-19) RNA HANK+probe Ql (Resp) COVID 19 RESULT: SARS-CoV-2 (Agent of COVID-19) Not Detected by RT-PCR or equivalent method. This test has been authorized by FDA under an Emergency Use Authorization (EUA). Normal [facility] Comment on above: Performed By: #### 9 4500-6 ####[facility] [id number] [place] [address] [place] Basic metabolic 2000 panelon 01-28-2022 Anion gap [Moles/Vol] 10 mmol/L Normal 9-18 [facility] Comment on above: Order Comment: Speci men Type: BLOOD SPECIMENOrdering Facility: [facility] Address: [address] [address] Performed By: #### 2 4321-2 ####[facility] [id number] [place] [address] [place] Calcium [Mass/Vol] 9.3 mg/dL Normal 8.5-10.2 [facility] Comment on above: Order Comment: Speci men Type: BLOOD SPECIMENOrdering Facility: [facility] Address: [address] [address] Performed By: #### 2 4321-2 ####[facility]ENTER[facility] [id number] [place] [address] [place] Chloride [Moles/Vol] 105 mmol/L Normal 97-105 [facility] Comment on above: Order Comment: Speci men Type: BLOOD SPECIMENOrdering Facility: [facility] Address: [address] [address] Performed By: #### 2 4321-2 ####[facility]ENTERIA [id number] [place] [address] [place] CO2 [Moles/Vol] 22 mmol/L Normal 22-30 [facility] ital Comment on above: Order Comment: Speci men Type: BLOOD SPECIMENOrdering Facility: [facility] Address: [address] [address] Performed By: #### 2 4321-2 ####[facility]ENTER[facility] [id number] [place] [address] [place] Creatinine [Mass/Vol] 0.68 mg/dL Normal 0.58-0.96 [facility] Comment on above: Order Comment: Speci men Type: BLOOD SPECIMENOrdering Facility: [facility] Address: [address] [place] [address] Performed By: #### 2 4321-2 ####[facility] LABORATORYIA [id number] [place] [address] [place] ESTIMATED GLOMERULAR FILTRATION RATE 119 mL/min/1.73m??? Normal >=60 [facility] Comment on above: Order Comment: Geraldo marrero Type: BLOOD SPECIMENOrdering Facility: [facility] Address: [address] [place] [address] Result Comment: Rashmi mated Glomerular Filtration Rate (eGFR) is calculated using the 2020 CKD-EPI creatinine equation. This equation utilizes serum creatinine, sex, and age as parameters. The creatinine assay has traceable calibration to isotope dilution-mass spectrometry. Refer to KDIGO guidelines for clinical interpretation. In patients with unstable renal function, e.g. those with acute kidney injury, the eGFR may not accurately reflect actual GFR. Performed By: #### 2 4321-2 ####[facility] LABORATORYCLIA [id number] [place] [address] [place] Glucose [Mass/Vol] 77 mg/dL Normal 74-99 [facility] Comment on above: Order Comment: Geraldo marrero Type: BLOOD SPECIMENOrdering Facility: [facility] Address: [address] [place] [address] Result Comment: The [place] Diabetes Association (ADA) provides guidance for cutoff values for fasting glucose and random glucose. The ADA defines fasting as no caloric intake for at least 8 hours. Fasting plasma glucose results between 100 to 125 mg/dL indicate increased risk for diabetes (prediabetes). Fasting plasma glucose results greater than or equal to 126 mg/dL meet the criteria for diagnosis of diabetes. In the absence of unequivocal hyperglycemia, results should be confirmed by repeat testing. In a patient with classic symptoms of hyperglycemia or hyperglycemic crisis, random plasma glucose results greater than or equal to 200 mg/dL meet the criteria for diagnosis of diabetes. Reference: Standards of Medical Care in Diabetes 2016, [place] Diabetes Association. Diabetes Care. 2016.39(Suppl 1). Performed By: #### 2 4321-2 ####[facility] LABORATORYCLIA [id number] [place] [address] [place] Potassium [Moles/Vol] 4.3 mmol/L Normal 3.7-5.1 [facility] Comment on above: Order Comment: Geraldo marrero Type: BLOOD SPECIMENOrdering Facility: [facility] Address: [address] [place] [address] Performed By: #### 2 4321-2 ####[facility] LABORATORYIA [id number] [place] [address] [place] Sodium [Moles/Vol] 137 mmol/L Normal 136-144 [facility] Comment on above: Order Comment: Speci men Type: BLOOD SPECIMENOrdering Facility: [facility] Address: [address] [address] Performed By: #### 2 4321-2 ####[facility] LABORATORYCLIA [id number] [place] [address] [place] Urea nitrogen [Mass/Vol] 9 mg/dL Normal 7-21 [facility] Comment on above: Order Comment: Speci men Type: BLOOD SPECIMENOrdering Facility: [facility] Address: [address] [address] Performed By: #### 2 4321-2 ####[facility] LABORATORYCLIA [id number] [place] [address] [place] Anion gap [Moles/Vol] 10 mmol/L 9 - 18 mmol/L [facility] Calcium [Mass/Vol] 9.3 mg/dL 8.5 - 10. 2 mg/dL [facility] Chloride [Moles/Vol] 105 mmol/L 97 - 10 5 mmol/L [facility] CO2 [Moles/Vol] 22 mmol/L 22 - 30 mmol/L [facility] Creatinine [Mass/Vol] 0.68 mg/dL 0.58 - 0.96 mg/dL [facility] Estimated Glomerular Filtration Rate 119 mL/min/1.73m >=60 mL/min/1.73m [facility] Glucose [Mass/Vol] 77 mg/dL 74 - 99 mg/dL [facility] Potassium [Moles/Vol] 4.3 mmol/L 3.7 - 5.1 mmol/L [facility] Sodium [Moles/Vol] 137 mmol/L 136 - 144 mmol/L [facility] Urea nitrogen [Mass/Vol] 9 mg/dL 7 - 21 mg/dL [facility] CBC panel Auto (Bld)on 01-28 Erythrocyte distribution width (RBC) [Ratio] 13.3 % Normal 11.5-15.0 [facility] Comment on above: Order Comment: Speci men Type: BLOOD SPECIMENOrdering Facility: [facility] Address: [address] [place] [address] Performed By: #### 5 8410-2 ####[facility] LABORATORYIA [id number] [address] [place] Hematocrit (Bld) [Volume fraction] 42.9 % Normal 36.0-46.0 [facility] Comment on above: Order Comment: Speci men Type: BLOOD SPECIMENOrdering Facility: [facility] Address: [address] [place] [address] Performed By: #### 5 8410-2 ####[facility] [id number] [place] [address] [place] Hemoglobin (Bld) [Mass/Vol] 14.6 g/dL Normal 11.5-15.5 [facility] Comment on above: Order Comment: Speci men Type: BLOOD SPECIMENOrdering Facility: [facility] Address: [address] [place] [address] Performed By: #### 5 8410-2 ####[facility] [id number] [address] [place] MCH (RBC) [Entitic mass] 29.8 pg Normal 26.0-34.0 [facility] Comment on above: Order Comment: Speci men Type: BLOOD SPECIMENOrdering Facility: [facility] Address: [address] [address] Performed By: #### 5 8410-2 ####[facility]ENTER[facility] [id number] [place] [address] [place] MCHC (RBC) [Mass/Vol] 34.0 g/dL Normal 30.5-36.0 [facility] Comment on above: Order Comment: Speci men Type: BLOOD SPECIMENOrdering Facility: [facility] Address: [address] [place] [address] Performed By: #### 5 8410-2 ####[facility]ENTERIA [id number] [address] [place] MCV (RBC) [Entitic vol] 87.6 fL Normal 80.0-100.0 [facility] Comment on above: Order Comment: Speci men Type: BLOOD SPECIMENOrdering Facility: [facility] Address: [address] Performed By: #### 5 8410-2 ####[facility] [id number] [address] [place] Nucleated RBC (Bld) [#/Vol] 10*3/uL Normal <0.01 [facility] Comment on above: Order Comment: Speci men Type: BLOOD SPECIMENOrdering Facility: [facility] Address: [address] [address] Performed By: #### 5 8410-2 ####[facility] [id number] [place] [address] [place] Platelet mean volume (Bld) [Entitic vol] 11.4 fL Normal 9.0-12.7 [facility] Comment on above: Order Comment: Speci men Type: BLOOD SPECIMENOrdering Facility: [facility] Address: [address] Performed By: #### 5 8410-2 ####[facility] [id number] [place] [address] [place] Platelets (Bld) [#/Vol] 247 10*3/uL Normal 150-400 [facility] Comment on above: Order Comment: Speci men Type: BLOOD SPECIMENOrdering Facility: [facility] Address: [address] Performed By: #### 5 8410-2 ####[facility] LABORATORYIA [id number] [place] [address] [place] RBC (Bld) [#/Vol] 4.90 10*6/uL Normal 3.90-5.20 [facility] Comment on above: Order Comment: Speci men Type: BLOOD SPECIMENOrdering Facility: [facility] Address: [address] [address] Performed By: #### 5 8410-2 ####[facility] LABORATORYCLIA [id number] [facility] [facility] WBC (Bld) [#/Vol] 4.05 10*3/uL Normal 3.70-11.00 [facility] Comment on above: Order Comment: Speci men Type: BLOOD SPECIMENOrdering Facility: [facility] Address: [address] [address] Performed By: #### 5 8410-2 ####[facility] LABORATORYCLIA [id number] [facility] OF [facility] Erythrocyte distribution width (RBC) [Ratio] 13.3 % 11.5 - 15.0 % [facility] Hematocrit (Bld) [Volume fraction] 42.9 % 36.0 - 46.0 % [facility] Hemoglobin (Bld) [Mass/Vol] 14.6 g/dL 11.5 - 15.5 g/dL [facility] MCH (RBC) [Entitic mass] 29.8 pg 26.0 - 34.0 pg [facility] MCHC (RBC) [Mass/Vol] 34.0 g/dL 30.5 - 36.0 g/dL [facility] MCV (RBC) [Entitic vol] 87.6 fL 80.0 - 100.0 fL [facility] Nucleated RBC (Bld) [#/Vol] <0.01 k/uL [facility] Platelet mean volume (Bld) [Entitic vol] 11.4 fL 9.0 - 12.7 fL [facility] Platelets (Bld) [#/Vol] 247 10*3/uL 150 - 400 k/uL [facility] RBC (Bld) [#/Vol] 4.90 10*6/uL 3.90 - 5.2 0 m/uL [facility] WBC (Bld) [#/Vol] 4.05 10*3/uL 3.70 - 11. 00 k/uL [facility] EKGon 01-28-2022 Electrocardiogram Ventricular Rate : 6 1 BPM Atrial Rate : 61 BPM P-R Interval : 144 ms QRS Duration : 86 ms Q-T Interval : 424 ms QTC Calculation(Bazett) : 426 ms Calculated P [place] : 76 degrees Calculated R [place] : 73 degrees Calculated T [place] : 57 degrees Normal sinus rhythm Normal ECG No previous ECGs available Confirmed by SHIKHA JOY M.D. ([id number]) on 01/28/2022 10:41:51 AM NAME : ABBEY GARCIA PID : [id number] : 1990 Gender : Female Race : ORD : Procedure Date : Jan 28 2022 08:49:01 Edit Date : Jan 28 2022 10:41:53 Diagnosis: Normal sinus rhythm Normal ECG No previous ECGs available Confirmed by SHIKHA JOY M.D. ([id number]) on 01/28/2022 10:41:51 AM Test Reason : Location : 301 : PACC Overread By : SHIKHA JOY M.D. Edited By : SHIKHA OJY M.D. Referred By : DEACON KAT Acquired by : [facility] Atrial Rate 61 BPM [facility] Calculated P [place] 76 degrees [facility] Calculated R [place] 73 degrees [facility] Calculated T [place] 57 degrees [facility] P-R Interval 144 ms [facility] QRS Duration 86 ms [facility] QT Interval 424 ms [facility] QTC Calculation (Bazett) 426 ms [facility] Ventricular Rate 61 BPM [facility] HISTORY PHYSICALon HISTORY PHYSICAL HNO ID: [id number] Author: Ioana Hogan PA-C Service: ? Author Type: Physician Enrollment Representative Type: HANDP Filed: 01/28/2022 11:19 AM Note Text: HISTORY AND PHYSICAL EXAMINATION SERVICE DATE: 01/28/2022 SERVICE TIME: 8:35 AM PRIMARY CARE PHYSICIAN: Wally Foley MD REASON FOR VISIT: Abbey Garcia is a 31 year old female who is scheduled for laparoscopic gastrojejunostomy w/o vagotomy at the request of Dr. Deacon Kat for consultation. My final recommendation will be communicated back to the requesting physician by way of shared medical record or letter. 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 Patient is status post laparoscopic sleeve gastrectomy in August 2020. Since that surgery she has been experiencing severe gastroesophageal reflux. She states it is constant throughout the day and can sometimes vomit. She also has been experiencing epigastric and left upper quadrant abdominal pain as well as throat pain. She also has a history of ulcers in the past. She has tried taking oral medications with no relief. She also complains of chronic constipation, but denies any diarrhea, melena, hematochezia. She has been diagnosed with gastroesophageal reflux disease with esophagitis without hemorrhage and has been recommended for the above surgery. PAST MEDICAL HISTORY Diagnosis Date Anemia Takes Pro FE daily. Arthritis Asthma Class 1 obesity without serious comorbidity with body mass index (BMI) of 33.0 to 33.9 in adult 09/25/2019 Gastric ulcer 2014 GERD (gastroesophageal reflux disease) History of IBS Hypertension Hypothyroid RICHAR on CPAP wears mask every night PCOS (polycystic ovarian syndrome) Ventral hernia without obstruction or gangrene PAST SURGICAL HISTORY Procedure Laterality Date APPENDECTOMY 08/2019 CHOLECYSTECTOMY COLONOSCOPY GEN ANES EGD F TOTAL ABDOMINAL HYSTERECTOMY PAST SURGICAL HISTORY OF Bilateral arthroscopic knee surgery- was catcher in college PAST SURGICAL HISTORY OF 08/2020 gastric sleeve PICC LINE INSERT/CONSULT 12/24/2020 VAGINAL DELIVERY AFTER DELIVERY Three C-sections FAMILY HISTORY Problem Relation Age of Onset Diabetes Mother Hypertension Mother Obesity Mother Hypertension Father Hypertension Brother Obesity Brother Hypertension Brother Obesity Brother SOCIAL HISTORY: Social History Tobacco Use Smoking status: Never Smokeless tobacco: Never Substance Use Topics Alcohol use: Not Currently Drug use: Never Comment: denies tx for drug/alcohol abuse in the past. MEDICATIONS: Prior to Admission medications as of 01/28/22 0901 Medication Sig Last Dose Taking multivitamin tablet Take 1 tablet by mouth. Bariatric chewable 2 a day Taking Yes mirtazapine (REMERON) 15 mg tablet Take 1 tablet by mouth daily at bedtime. Taking Yes escitalopram oxalate (LEXAPRO) 10 mg tablet TAKE 1 TABLET BY MOUTH EVERY DAY Taking Yes escitalopram oxalate (LEXAPRO) 5 mg tablet TAKE 1 TABLET BY MOUTH ONCE DAILY. TAKE WITH 10 MG TABLET. Taking Yes hydrOXYzine HCl (ATARAX) 25 mg tablet TAKE 1 TABLET BY MOUTH TWICE A DAY NEEDED FOR ANXIETY/INSOMNIA Taking Yes fluticasone propion/salmeterol (ADVAIR HFA INHALATION) Inhale as instructed. Taking Yes ALBUTEROL INHALATION Inhale as instructed. Taking Yes levothyroxine (SYNTHROID) 100 mcg tablet Take 1 tablet by mouth once daily. Taking Yes famotidine (PEPCID) 40 mg tablet Take 1 tablet by mouth once daily. Taking Yes magnesium gluconate (MAGONATE) 27 mg (500 mg) tab Take 500 mg by mouth once daily. Taking Yes liothyronine (CYTOMEL) 5 mcg tablet Take 5 mcg by mouth once daily. Taking Yes No medication comments found. CURRENT ALLERGIES: ALLERGIES Allergen Reactions Adhesive Tape-Silic* Intolerance Sensitive to certain adhesive tapes. Redness and itchy. Codeine GI Upset COVID VACCINATION STATUS: Fully (more content not included)... [facility] TYPE AND SCREEN,30 DAYon ABO O [facility] Comment on above: Order Comment: Speci men Type: BLOOD SPECIMENOrdering Facility: [facility] Address: [address] [id number] Performed By: #### T [id number] ####EMILIA BLOOD BANKCLIA [id number] [address] [place] HISTORICAL AB SCR STATUS Negative [facility] Comment on above: Order Comment: Speci men Type: BLOOD SPECIMENOrdering Facility: [facility] Address: [address] [place] [address] Performed By: #### T [id number] ####EMILIA BLOOD BANKCLIA [id number] [facility] [place] [address] [place] Rh Nom (Bld) Positive Normal [facility] Comment on above: Order Comment: Speci men Type: BLOOD SPECIMENOrdering Facility: [facility] Address: [place] [address] Performed By: #### T [id number] ####EMILIA BLOOD BANKCLIA [id number] [place] [address] [place] ABO O [facility] HIstorical Ab Scr Status Negative [facility] Rh Nom (Bld) Positive [facility] EGD - THERAPEUTIC, EUS, OR T UBE INTERVENTIONSon 12-25-2021 [facility] METANEPHRINES PLASMA FREEon 11-01-2021 Metanephrine, Pl <10.0 Normal 0.0-88.0 [facility] Comment on above: Performed By: #### G RUBIN, LIPID #### [facility] [address] [address] [address] Stephan Tavares Normetanephrine, Pl 19.4 pg/mL Normal 0.0-210.1 [facility] Comment on above: Performed By: #### G RUBIN, LIPID #### [facility] [address] [address] [address] Stephan Tavares CORTISOLon 10-28-2021 Cortisol 4.6 ug/dL Normal [facility] Comment on above: Result Comment: Wesley isol AM 6.2 - 19.4 Cortisol PM 2.3 - 11.9 Performed By: #### C ORTISO #### [facility] [address] [address] [address] Stephan Tavares CBC AUTO DIFFon 10-27-2021 BASO # 0.0 103/ul Normal 0.0-0.1 [facility] Comment on above: Performed By: #### G RUBIN, LIPID #### [facility] [address] [place] [address] Dr. Stephan Tavares Basophils/100 WBC (Bld) 0.5 % Normal 0.2-2.0 [facility] Comment on above: Performed By: #### G RUBIN, LIPID #### [facility] [address] [place] [address] Dr. Stephan Tavares EO # 0.0 103/ul Normal 0.0-0.7 [facility] Comment on above: Performed By: #### G RUBIN, LIPID #### [facility] [address] [place] [address] Dr. Stephan Tavares Eosinophils/100 WBC (Bld) 0.5 % Critically low 0.9-7.0 [facility] Comment on above: Performed By: #### G RUBIN, LIPID #### [facility] [address] [place] [address] Dr. Stephan Tavares Erythrocyte distribution width (RBC) [Ratio] 12.8 % Normal 11.0-15.0 [facility] Comment on above: Performed By: #### G RUBIN, LIPID #### [facility] [address] [place] [address] Dr. Stephan Tavares Hematocrit (Bld) [Volume fraction] 37.5 % Normal 36.0-48.0 [facility] Comment on above: Performed By: #### G RUBIN, LIPID #### [facility] [address] [place] [address] Dr. Stephan Tavares Hemoglobin (Bld) [Mass/Vol] 12.9 g/dL Normal 12.0-16.0 [facility] Comment on above: Performed By: #### G RUBIN, LIPID #### [facility] [address] [place] [address] Dr. Stephan Tavares IG # 0.01 10e3/ul Normal 0.00-0.03 [facility] Comment on above: Performed By: #### G RUBIN, LIPID #### [facility] [address] [place] [address] Dr. Stephan Tavares IG % 0.2 % Normal 0.0-0.5 [facility] Comment on above: Performed By: #### G RUBIN, LIPID #### [facility] [address] [place] [address] Dr. Stephan Tavares LYMPH # 1.9 103/ul Normal 1.2-3.8 [facility] Comment on above: Performed By: #### G RUBIN, LIPID #### [facility] [address] [place] [address] Dr. Stephan Tavares Lymphocytes/100 WBC (Bld) 34.6 % Normal 20.5-60.0 [facility] Comment on above: Performed By: #### G RUBIN, LIPID #### [facility] [address] [place] [address] Dr. Stephan Tavares MANUAL DIFF REQ NO Normal [facility] Comment on above: Performed By: #### G RUBIN, LIPID #### [facility] [address] [place] [address] Dr. Stephan Tavares MCH (RBC) [Entitic mass] 30.3 pg Normal 26.7-34.0 [facility] Comment on above: Performed By: #### G RUBIN, LIPID #### [facility] [address] [place] [address] Dr. Stephan Tavares MCHC (RBC) [Mass/Vol] 34.4 g/dL Normal 29.9-35.2 [facility] Comment on above: Performed By: #### G RUBIN, LIPID #### [facility] [address] [place] [address] Dr. Stephan Tavares MCV (RBC) [Entitic vol] 88.0 fL Normal 81.0-99.0 [facility] Comment on above: Performed By: #### G RUBIN, LIPID #### [facility] [address] [place] [address] Dr. Stephan Tavares MONO # 0.4 103/ul Normal 0.3-0.8 [facility] Comment on above: Performed By: #### G RUBIN, LIPID #### [facility] [address] [place] [address] Dr. Stephan Tavares Monocytes/100 WBC (Bld) 6.6 % Normal 1.7-12.0 [facility] Comment on above: Performed By: #### G RUBIN, LIPID #### [facility] [address] [place] [address] Dr. Stephan Tavares NEUT # 3.2 103/ul Normal 1.4-6.5 [facility] Comment on above: Performed By: #### G RUBIN, LIPID #### [facility] [address] [address] [address] Stephan Tavares Neutrophils/100 WBC (Bld) 57.6 % Normal 43.0-75.0 [facility] Comment on above: Performed By: #### G RUBIN, LIPID #### [facility] [address] [address] [address] Stephan Tavares Platelet mean volume (Bld) [Entitic vol] 10.6 fL Normal 9.5-13.5 [facility] Comment on above: Performed By: #### G RUBIN, LIPID #### [facility] [address] [address] [address] Stephan Tavraes PLT 249 103/ul Normal 150-450 [facility] Comment on above: Performed By: #### G RUBIN, LIPID #### [facility] [address] [place] [address] Dr. Stephan Tavares RBC 4.26 106/ul Normal 4.20-5.40 [facility] Comment on above: Performed By: #### G RUBIN, LIPID #### [facility] [address] [address] [address] Stephan Tavares WBC 5.6 103/ul Normal 4.0-11.0 [facility] Comment on above: Performed By: #### G RUBIN, LIPID #### [facility] [address] [place] [address] Dr. Stephan Tavares FREE T3on 10-27-2021 FREE T3 3.25 pg/mlL Normal 2.18-3.98 [facility] Comment on above: Performed By: #### G RUBIN, LIPID #### [facility] [address] [place] [address] Dr. Stephan Tavares FREE T4on 10-27-2021 Free T4 [Mass/Vol] 1.45 ng/dL Normal 0.76-1.46 [facility] Comment on above: Performed By: #### G RUBIN, LIPID #### [facility] [address] [address] [address] Stephan Tavares PROF CHEM 8 (BAS METB)on Anion gap [Moles/Vol] 13.1 mmol/L Normal [facility] Comment on above: Performed By: #### T JENI FT3, BMP #### [facility] [address] [address] [address] Stephan Tavares Calcium [Mass/Vol] 8.7 mg/dL Normal 8.5-10.1 [facility] Comment on above: Performed By: #### T JENI FT3, BMP #### [facility] [address] [place] [address] Dr. Stephan Tavares Chloride [Moles/Vol] 104 mmol/L Normal 98-107 [facility] Comment on above: Performed By: #### T JENI FT3, BMP #### [facility] [address] [place] [address] Dr. Stephan Tavares CO2 [Moles/Vol] 25.3 mmol/L Normal 21.0-32.0 [facility] Comment on above: Performed By: #### T JENI FT3, BMP #### [facility] [address] [place] [address] Dr. Stephan Tavares Creatinine [Mass/Vol] 0.69 mg/dL Normal 0.55-1.02 [facility] Comment on above: Performed By: #### T JENI FT3, BMP #### [facility] [address] [place] [address] Dr. Stephan Tavares EGFR-AF BERMUDIAN >60 Normal >=60 [facility] Comment on above: Performed By: #### T JENI FT3, BMP #### [facility] [address] [place] [address] Dr. Stephan Tavares EGFR-NON AF BERMUDIAN >60 Normal >=60 [facility] Comment on above: Performed By: #### T JENI FT3, BMP #### [facility] [address] [place] [address] Dr. Stephan Tavares Glucose [Mass/Vol] 87 mg/dL Normal 74-106 [facility] [place] [facility] Comment on above: Performed By: #### T JENI FT3, BMP #### [facility] [address] [address] [address] Stephan Tavares Potassium [Moles/Vol] 3.4 mmol/L Critically low 3.5-5.1 [facility] Comment on above: Performed By: #### T SH, FT3, BMP #### [facility] [address] [place] [address] Dr. Stephan Tavares Sodium [Moles/Vol] 139 mmol/L Normal 136-145 [facility] Comment on above: Performed By: #### T SH, FT3, BMP #### [facility] [address] [place] [address] Dr. Stephan Tavares Urea nitrogen [Mass/Vol] 9.0 mg/dL Normal 7.0-18.0 [facility] Comment on above: Performed By: #### T SH, FT3, BMP #### [facility] [address] [place] [address] Dr. Stephan Tavares Urea nitrogen/Creatinine [Mass ratio] 13.0 mg/mg Normal [facility] Comment on above: Performed By: #### T , FT3, BMP #### [facility] [address] [place] [address] Dr. Stephan Tavares TSHon 10-27-2021 TSH Qn m[IU]/L Critically low 0.358-3.740 [facility] Comment on above: Performed By: #### G RUBIN, LIPID #### [facility] [address] [place] [address] SINUSES WO CONon 10-07-19 CT SINUSES WO CON EXAMINATION: CT SINUSES WO CON HISTORY: Recurrent sinusitis COMPARISON: No relevant comparison available. TECHNIQUE: Axial and Coronal CT images were created without IV contrast. Dose reduction techniques were achieved by using automated exposure control and/or adjustment of mA and/or kV according to patient size and/or use of iterative reconstruction technique. FINDINGS: MAXILLARY SINUSES: No significant mucosal thickening or fluid. Slight narrowing of left infundibulum secondary to mild mucosal thickening. No significant anomalous inferior orbital ethmoid (Mavis) air cells. ETHMOID SINUSES: No significant mucosal thickening or fluid. Fovea ethmoidali and lamina papyracea are symmetric and intact. SPHENOID SINUSES: No significant mucosal thickening or fluid. Sphenoethmoidal recesses are patent. No bony dehiscence. FRONTAL SINUSES: No significant mucosal thickening or fluid. Frontal recesses are patent. NASAL FOSSA: No significant deviation of the nasal septum. Shira bullosa of the right middle turbinate. Moderate-marked narrowing of the nasal passageway due to mucosal thickening of the inferior and middle turbinates. OTHER: Negative. Limited views of the skull base and orbits are unremarkable. IMPRESSION: 1. No CT evidence of acute or significant chronic sinusitis. 2. Narrowing, with near occlusion, of nasal passageway due to mucosal thickening of the middle and inferior turbinates. Electronically authenticated by: ALVERTO PHAM Date: 2021-10-06 06:19 Normal [facility] Dental Nerve Blockon 022 Pablo Atwood DO 08/30/2021 4:20 AM Dental Nerve Block Date/Time: 08/30/2021 4:19 AM Performed by: Pablo Atwood DO Authorized by: Pablo Atwood DO Consent: Consent obtained: Verbal Consent given by: Patient Risks, benefits, and alternatives were discussed: yes [place] protocol: Patient identity confirmed: Verbally with patient Indications: Indications: dental pain Location: Block type: Posterior superior alveolar Laterality: Left Procedure details: Syringe type: Controlled syringe Needle gauge: 27 G Anesthetic injected: Bupivacaine 0.5% WITH epi Post-procedure details: Outcome: Anesthesia achieved Procedure completion: Tolerated well, no immediate complications [facility] [employer] Work Phone: [facility] [employer] Phone: GLUCOSE BLOODon 08-21-2021 Glucose [Mass/Vol] 79 mg/dL Normal 74-106 [facility] Comment on above: Performed By: #### G RUBIN, LIPID #### [facility] [address] [place] [address] Dr. Stephan Tavares LIPID PROFILEon 08-21-2021 CHOL-HDL RATIO NORM SEE BELOW Normal [facility] Comment on above: Result Comment: 3.3 - 4.4 LOW RISK 4.4 - 7.1 AVERAGE RISK 7.1 - 11.0 MODERATE RISK >11.0 HIGH RISK Performed By: #### G RUBIN, LIPID #### [facility] [address] [address] [address] Stephan Tavares Cholesterol [Mass/Vol] 163 mg/dL Normal <=200 [facility] Comment on above: Performed By: #### G RUBIN, LIPID #### [facility] [address] [address] [address] Stephan Tavares Cholesterol in HDL [Mass/Vol] 71 mg/dL Critically high 40-60 [facility] Comment on above: Performed By: #### G RUBIN, LIPID #### [facility] [address] [address] [address] Stephan Tavares Cholesterol in LDL [Mass/Vol] 67.8 mg/dL Normal [facility] Comment on above: Performed By: #### G RUBIN, LIPID #### [facility] [address] [address] [address] Stephan Tavares Cholesterol.total/Cho lesterol in HDL [Mass ratio] 2.3 {ratio} Normal [facility] Comment on above: Performed By: #### G RUBIN, LIPID #### [facility] [address] [address] [address] Stephan Tavares HDL NORMAL > or = 60 mg/dl - LO W CARDIOVASCULAR RISK <40 mg/dl - HIGH CARDIOVASCULAR RISK Normal [facility] Comment on above: Performed By: #### G RUBIN, LIPID #### [facility] [address] [address] [address] Stephan Tavares LDL CALC NORMAL SEE BELOW Normal [facility] Comment on above: Result Comment: <100 mg/dl OPTIMAL 100 - 129 mg/dl NEAR OR ABOVE OPTIMAL 130 - 159 mg/dl BORDERLINE HIGH 160 - 189 mg/dl HIGH >190 mg/dl VERY HIGH Performed By: #### G RUBIN, LIPID #### [facility] [address] [address] [address] Stephan Tavares Triglyceride [Mass/Vol] 121 mg/dL Normal <=150 [facility] Comment on above: Performed By: #### G RUBIN, LIPID #### [facility] [address] [address] [address] Stephan Tavares VLDL CALC 24.2 mg/dL Normal [facility] Comment on above: Performed By: #### G RUBIN, LIPID #### [facility] [address] [address] [address] Stephan Tavares US SINGLE QUAD RT UPPERon US SINGLE QUAD RT UPPER EXAMINATION: US SINGLE QUAD RT UPPER HISTORY: Right upper quadrant pain ; abdominal pain after eating COMPARISON: No relevant comparison available. TECHNIQUE: Transabdominal evaluation of the right upper quadrant. FINDINGS: LIVER: 2 incidental small hepatic cysts. Normal size and echotexture. Color Doppler demonstrates patent hepatic veins. PORTAL VEIN: Duplex Doppler demonstrates normal hepatopetal flow pattern with flow velocity averaging 32 cm/s. GALLBLADDER: Cholecystectomy. BILIARY: No abnormal dilation or stones. Common bile duct diameter is within normal limits. PANCREASE: No visible mass, abnormal atrophy, or duct dilation. KIDNEY: No hydronephrosis. No visible mass or stones. Size: 12.3 x 6.5 x 5.8 cm IMPRESSION: 1. No suspicious findings to account for patient's symptoms. Electronically authenticated by: ALVERTO PHAM Date: 2021-08-21 17:24 Normal [facility] XR SINUSES 3 VIEWS OR GREATE Dandre 08-20-2021 XR SINUSES 3 VIEWS OR GREATER EXAMINATION: XR SINUSES 3 VIEWS OR GREATER HISTORY: Recurrent sinusitis COMPARISON: No relevant comparison available. FINDINGS: MAXILLARY: No mucosal thickening or fluid level. ETHMOID: No mucosal thickening or fluid level. FRONTAL: No mucosal thickening or fluid level. SPHENOID: No mucosal thickening or fluid level. OTHER: Negative. IMPRESSION: 1. No appreciable significant mucosal thickening within the paranasal sinuses. 2. No fluid levels to suggest acute sinusitis. Electronically authenticated by: AVLERTO PHAM Date: 2021-08-20 13:05 Normal [facility] Glucose - FINGER STICKon Glucose [Mass/Vol] 84 mg/dL [employer] Other VAGINITIS/VAGINOSIS DNA PROB Ryder 08-01-2021 Alea species Positive Abnormal Negative [facility] Comment on above: Performed By: #### G RUBIN, LIPID #### [facility] [address], [place] [address] Dr. Stephan Tavares Gardnerella vaginalis Negative Normal Negative [facility] Comment on above: Performed By: #### G RUBIN, LIPID #### [facility] [address], [place] [address] Dr. Stephan Tavares Trichomonas vaginalis Negative Normal Negative [facility] Comment on above: Performed By: #### G RUBIN, LIPID #### [facility] [address], [place] [address] Dr. Stephan Tavares APTTon 07-27-2021 aPTT Coag (Bld) [Time] 30.9 s [facility] Comment on above: IV Heparin Therapy Range: 62.0-94.0 CBC with Auto Differentialon 07-27-2021 Absolute Eos # 0.06 [facility] Absolute Immature Granulocyte <0.03 [facility] Absolute Lymph # 1.49 [facility] Absolute [place] # 0.27 [facility] Basophils (Bld) [#/Vol] 0.04 10*3/uL [facility] Basophils/100 WBC (Bld) 1 % 0 - 2 % [facility] Eosinophils/100 WBC (Bld) 1 % 1 - 4 % [facility] Hematocrit (Bld) [Volume fraction] 38.8 % 36.3 - 47.1 % [facility] Hemoglobin (Bld) [Mass/Vol] 12.7 g/dL 11.9 - 15.1 g/dL [facility] Immature granulocytes/100 WBC (Bld) 0 % 0 [facility] Interpretation and review of laboratory results Abnormal [facility] Lymphocytes/100 WBC (Bld) 36 % 24 - 43 % [facility] MCH (RBC) [Entitic mass] 28.9 pg 25.2 - 33.5 pg [facility] MCHC (RBC) [Mass/Vol] 32.7 g/dL 28.4 - 34.8 g/dL [facility] MCV (RBC) [Entitic vol] 88.4 fL 82.6 - 102.9 fL [facility] Monocytes/100 WBC (Bld) 6 % 3 - 12 % [facility] NRBC Automated 0.0 0.0 per 100 WBC [facility] Platelet distribution width (Bld) [Ratio] 14.5 % High 11.8 - 14.4 % [facility] Platelet mean volume (Bld) [Entitic vol] 10.8 fL 8.1 - 13.5 fL [facility] Platelets (Bld) [#/Vol] 251 10*3/uL [facility] RBC (Bld) [#/Vol] 4.39 10*6/uL 3.95 - 5.1 1 m/uL [facility] Segmented neutrophils/100 WBC (Bld) 56 % 36 - 65 % [facility] Segs Absolute 2.33 [facility] WBC (Bld) [#/Vol] 4.2 10*3/uL [facility] CT ABDOMEN PELVIS W IV CONTR AST Additional Contrast? Noneon 07-27-2021 No acute abdominal o r pelvic abnormality. [facility] RIS CONSOLIDATED EXAMINATION: CT OF THE ABDOMEN AND PELVIS WITH CONTRAST 07/27/2021 12:26 pm TECHNIQUE: CT of the abdomen and pelvis was performed with the administration of intravenous contrast. Multiplanar reformatted images are provided for review. Automated exposure control, iterative reconstruction, and/or weight based adjustment of the mA/kV was utilized to reduce the radiation dose to as low as reasonably achievable. COMPARISON: None. HISTORY: ORDERING SYSTEM PROVIDED HISTORY: Severe abdominal pain TECHNOLOGIST PROVIDED HISTORY: Severe abdominal pain Decision Support Exception - unselect if not a suspected or confirmed emergency medical condition->Emergency Medical Condition (MA) FINDINGS: Lower Chest: The lung bases are without consolidation or effusion. The visualized cardiac structures are unremarkable. Organs: Multiple cysts are seen throughout the liver. The gallbladder has been removed. Pancreas, spleen, and adrenal glands are unremarkable. The kidneys are without obstructive uropathy. The urinary bladder is unremarkable. GI/Bowel: The stomach is contracted with postsurgical change. Loops of small bowel are normal in caliber without evidence for obstruction. The colon contains air and fecal residue. The appendix has been removed. There is no free air or free fluid. Pelvis: Phleboliths are seen in the pelvis. The uterus has been removed. Peritoneum/Retroperito neum: The psoas muscles are symmetric. The abdominal aorta is normal in caliber. The inferior vena cava is unremarkable. There is no retroperitoneal or mesenteric adenopathy. Bones/Soft Tissues: The extra-abdominal soft tissues are unremarkable. There is no acute osseous abnormality. PN RIS Devon Joseph MD - 07/27/2021 EXAMINATION: CT OF THE ABDOMEN AND PELVIS WITH CONTRAST 07/27/2021 12:26 pm TECHNIQUE: CT of the abdomen and pelvis was performed with the administration of intravenous contrast. Multiplanar reformatted images are provided for review. Automated exposure control, iterative reconstruction, and/or weight based adjustment of the mA/kV was utilized to reduce the radiation dose to as low as reasonably achievable. COMPARISON: None. HISTORY: ORDERING SYSTEM PROVIDED HISTORY: Severe abdominal pain TECHNOLOGIST PROVIDED HISTORY: Severe abdominal pain Decision Support Exception - unselect if not a suspected or confirmed emergency medical condition->Emergency Medical Condition (MA) FINDINGS: Lower Chest: The lung bases are without consolidation or effusion. The visualized cardiac structures are unremarkable. Organs: Multiple cysts are seen throughout the liver. The gallbladder has been removed. Pancreas, spleen, and adrenal glands are unremarkable. The kidneys are without obstructive uropathy. The urinary bladder is unremarkable. GI/Bowel: The stomach is contracted with postsurgical change. Loops of small bowel are normal in caliber without evidence for obstruction. The colon contains air and fecal residue. The appendix has been removed. There is no free air or free fluid. Pelvis: Phleboliths are seen in the pelvis. The uterus has been removed. Peritoneum/Retroperito neum: The psoas muscles are symmetric. The abdominal aorta is normal in caliber. The inferior vena cava is unremarkable. There is no retroperitoneal or mesenteric adenopathy. Bones/Soft Tissues: The extra-abdominal soft tissues are unremarkable. There is no acute osseous abnormality. IMPRESSION: No acute abdominal or pelvic abnormality. [employer] Phone: Radiology Study observation (narrative) [employer] Phone: CT ABDOMEN PELVIS W IV CONTR AST Additional Contrast? NoneOrdered By: Devon Moura on 07-27-2021 [employer] Phone: Comprehensive Metabolic Pane l w/ Reflex to MGon 07-27-2021 Albumin [Mass/Vol] 4.7 g/dL 3.5 - 5.2 g/dL [facility] Albumin/Globulin [Mass ratio] 1.8 {ratio} [facility] ALP (Bld) [Catalytic activity/Vol] 62 U/L 35 - 104 U/L [facility] ALT [Catalytic activity/Vol] 14 U/L 5 - 33 U/L [facility] Anion gap [Moles/Vol] 11 mmol/L 9 - 17 mmol/L [facility] AST [Catalytic activity/Vol] 18 U/L <32 [facility] Bilirubin [Mass/Vol] 0.52 mg/dL 0.3 - 1 .2 mg/dL [facility] Calcium [Mass/Vol] 9.5 mg/dL 8.6 - 10. 4 mg/dL [facility] Chloride [Moles/Vol] 101 mmol/L 98 - 10 7 mmol/L [facility] CO2 [Moles/Vol] 25 mmol/L 20 - 31 mmol/L [facility] Creatinine [Mass/Vol] 0.76 mg/dL 0.50 - 0.90 mg/dL [facility] Free PSA/Total PSA [Mass fraction] 7.3 g/dL 6.4 - 8.3 g/dL [facility] GFR >60 >60 mL/min [facility] GFR Non- >60 >60 mL/min [facility] Glucose [Mass/Vol] 86 mg/dL 70 - 99 mg/dL [facility] Interpretation and review of laboratory results Abnormal [facility] Potassium [Moles/Vol] 4.0 mmol/L 3.7 - 5.3 mmol/L [facility] Sodium [Moles/Vol] 137 mmol/L 135 - 144 mmol/L [facility] Urea nitrogen (BldV) [Mass/Vol] 16 mg/dL 6 - 20 mg/dL [facility] Urea nitrogen/Creatinine (Bld) [Mass ratio] 21 High [facility] Laboratory - Chemistry and C hemistry - challengeon 07-27-2021 GFR/1.73 sq M.predicted MDRD (S/P/Bld) [Vol rate/Area] [facility] Comment on above: Average GFR for 30-3 9 years old: 107 mL/min/1.73sq m Chronic Kidney Disease: <60 mL/min/1.73sq m Kidney failure: <15 mL/min/1.73sq m eGFR calculated using average adult body mass. Additional eGFR calculator available at: http://www.[employer]/multiple_crcl_2012.htm Stage 1: Some kidney damage normal GFR Stage 2: Mild kidney damage GFR 60-89 Stage 3: Moderate kidney damage GFR 30-59 Stage 4: Severe kidney damage GFR 15-29 Stage 5: Severe kidney damage GFR <15 ESRD - chronic treatment by dialysis or transplant Lactic Acidon 07-27-2021 Lactate [Moles/Vol] 1 mmol/L 0.5 - 2. 2 mmol/L [facility] [employer] Lipaseon 07-27-2021 Lipase [Catalytic activity/Vol] 49 U/L 13 - 60 U/L [facility] [employer] App Microscopic Urinalysison - Prepair [facility] [employer] App Epithelial Cells UA 0 TO 2 [facility] [employer] RBC, UA 0 TO 2 [facility] [employer] WBC, UA 0 TO 2 [facility] No Panel Informationon 07-27 [facility] Protime-INRon 07-27-2021 INR Coag (Bld) [Relative time] 1.1 {INR} [facility] Comment on above: Non-therapeutic Range: INR = 0.9-1.2 Therapeutic Range: Moderate Anticoagulant Intensity: INR = 2.0-3.0 High Anticoagulant Intensity: INR = 2.5-3.5 PT Coag (PPP) [Time] 14.2 s [facility] Urinal[facility] with Reflex to Cu ltureon 07-27-2021 Bilirubin Urine Negative NEGATIVE [facility] [employer] App Color, UA Yellow Yellow [facility] [employer] Glucose, Ur Negative NEGATIVE [facility] [employer] Ketones Ql (U) Negative NEGATIVE [facility] [employer] Leukocyte esterase Test strip Ql (U) Negative NEGATIVE [facility] [employer] Nitrite, Urine Negative NEGATIVE [facility] pH, UA 7.5 [facility] Protein, UA Negative NEGATIVE [facility] Specific [place], UA 1.010 [facility] Turbidity UA Clear Clear [facility] Urine Hgb Negative NEGATIVE [facility] Urobilinogen, Urine Normal Normal DIEGO Barber [facility] XR CHEST PORTABLEon 07-28-19 No acute process. [facility] EXAMINATION: ONE XRAY VIEW OF THE CHEST 07/27/2021 10:34 am COMPARISON: April 12, 2013 HISTORY: ORDERING SYSTEM PROVIDED HISTORY: Decreased breath sounds left lower lung base TECHNOLOGIST PROVIDED HISTORY: Decreased breath sounds left lower lung base FINDINGS: The lungs are without acute focal process. There is no effusion or pneumothorax. The cardiomediastinal silhouette is without acute process. The osseous structures are without acute process. [facility] Goldie Grande MD - 07/27/2021 EXAMINATION: ONE XRAY VIEW OF THE CHEST 07/27/2021 10:34 am COMPARISON: April 12, 2013 HISTORY: ORDERING SYSTEM PROVIDED HISTORY: Decreased breath sounds left lower lung base TECHNOLOGIST PROVIDED HISTORY: Decreased breath sounds left lower lung base FINDINGS: The lungs are without acute focal process. There is no effusion or pneumothorax. The cardiomediastinal silhouette is without acute process. The osseous structures are without acute process. IMPRESSION: No acute process. [employer] Work Phone: Radiology Study observation (narrative) [employer] Phone: XR CHEST PORTABLEOrdered By: Goldie Grande on 07-27-2021 [facility] Phone: XR HIP GENERAL 3V PELV/AP/LA T RIGHTon 06-18-2021 [facility] XR chest 2V*on 03-31-2021 XR chest 2V* [facility] [employer] Other XR chest 2V* [facility] [employer] Other XR chest 2V* [address] [place] [address] [employer] Other XR chest 2V* [place] [address] [place] [employer] Other XR chest 2V* XRay Report [employer] Other XR chest 2V* Signed [employer] Other XR chest 2V* Patient: Abbey Garcia MR#: [id number] [place] [employer] Other XR chest 2V* : 1990 Acct:[id number] [employer] Other XR chest 2V* Age/Sex: 30 / F ADM Date: 03/31/21 [place] [employer] Other XR chest 2V* Loc: XDC Room: Typ e: [facility] [employer] Other XR chest 2V* [facility] Dr[facility] [place] [employer] Other XR chest 2V* Ordering Provider: [facility] [employer] Other XR chest 2V* Date of Service: 03/31/21 [employer] Other XR chest 2V* XR/XR chest 2V*: SOB (shortness of breath) [employer] Other XR chest 2V* [facility] [employer] Other XR chest 2V* PA AND LATERAL CHEST: N [employer] Other XR chest 2V* CLINICAL HISTORY: Wheezing and shortness of breath [employer] Other XR chest 2V* COMPARISON: 03/05/2020 N [employer] Other XR chest 2V* There is no focal parenchymal consolidation, effusion or pneumothorax. The cardiac, hilar and [employer] Other XR chest 2V* mediastinal silhouettes are within normal limits. There is no vascular congestion. The [employer] Other XR chest 2V* visualized bony thor ax is intact. [employer] Other XR chest 2V* XR/XR chest 2V* [employer] Other XR chest 2V* IMPRESSION: [employer] Other XR chest 2V* NO ACUTE CARDIOPULMONARY ABNORMALITY. [employer] Other XR chest 2V* Impression dictated by: Maricruz Hutchinson M.D.03/31/2021 11:32 AM [employer] Other XR chest 2V* Dictation Location: [facility] [employer] Other XR chest 2V* Transcribed By: SULEMA 03/31/21 [facility] [employer] Other XR chest 2V* Dictated By: Maricruz Hutchinson MD 03/31/21 [facility] [employer] Other XR chest 2V* Signed By: [employer] Other XR chest 2V* 03/31/21 [facility] [employer] Other Urinalysis - AUTOMATEDon Appearance (U) clear [employer] Other Bilirubin Ql (U) Negative [employer] Other Color (U) yellow [employer] Other Glucose Ql (U) Negative [employer] Other Hemoglobin Ql (U) Negative [employer] Other Ketones Ql (U) Negative [employer] Other Leukocyte esterase Test strip Ql (U) Negative [employer] Other Nitrite Ql (U) Negative [employer] Other pH (U) 7.0 [pH] [employer] Other Protein Ql (U) Negative [employer] Other Specific gravity (U) [Rel density] 1.015 [employer] Other Urobilinogen (U) [Mass/Vol] 0.2 mg/dL [employer] Other XR FINGER RIGHT (MIN 2 VIEWS )Ordered By: Vicky Olmedo on 12-14-2020 No acute osseous abnormality. [employer] Phone: EXAMINATION: THREE XRAY VIEWS OF THE RIGHT FINGERS 12/14/2020 3:26 pm COMPARISON: None. HISTORY: ORDERING SYSTEM PROVIDED HISTORY: shut right thumb in car door TECHNOLOGIST PROVIDED HISTORY: shut right thumb in car door FINDINGS: There is no evidence of acute fracture. There is normal alignment. No acute joint abnormality. No focal osseous lesion. No focal soft tissue abnormality. [employer] Phone: Yusuf, pn Incoming Radiant Results From [employer] - 12/14/2020 3:33 PM EDT EXAMINATION: THREE XRAY VIEWS OF THE RIGHT FINGERS 12/14/2020 3:26 pm COMPARISON: None. HISTORY: ORDERING SYSTEM PROVIDED HISTORY: shut right thumb in car door TECHNOLOGIST PROVIDED HISTORY: shut right thumb in car door FINDINGS: There is no evidence of acute fracture. There is normal alignment. No acute joint abnormality. No focal osseous lesion. No focal soft tissue abnormality. IMPRESSION: No acute osseous abnormality. [employer] Phone: [employer] Phone: CBC, EDIF, PLATELETOrdered B y: Juanito Laird on 07-02-2020 ABSOLUTE BASOPHIL COUNT 0.0 10*3/uL 0.0 - 0.2 10*3/uL [facility] Basophils/100 WBC (Bld) 0.6 % 0.0 - 2.0 % [facility] Differential cell count method Nom (Bld) AUTO DIFF % [facility] Eosinophils (Bld) [#/Vol] 0.10 10*3/uL 0.0 - 0.7 10*3/uL [facility] Eosinophils/100 WBC (Bld) 1.3 % 0.0 - 11.0 % [facility] Erythrocyte distribution width (RBC) [Ratio] 14.1 % 11.5 - 14.5 % [facility] Hematocrit (Bld) [Volume fraction] 36.2 % 36.0 - 48.0 % [facility] Hemoglobin (Bld) [Mass/Vol] 12.1 g/dL [facility] Lymphocytes (Bld) [#/Vol] 1.70 10*3/uL 1.2 - 3.4 10*3/uL [facility] Lymphocytes/100 WBC (Bld) 23.4 % 20.0 - 55.0 % [facility] MCH (RBC) [Entitic mass] 28.1 pg 26.0 - 35.0 PG [facility] MCHC (RBC) [Mass/Vol] 33.4 g/dL [facility] MCV (RBC) [Entitic vol] 84.1 fL [facility] Monocytes (Bld) [#/Vol] 0.5 10*3/uL 0.0 - 0.7 10*3/uL [facility] Monocytes/100 WBC (Bld) 6.4 % 0.0 - 10.0 % [facility] Neutrophils (Bld) [#/Vol] 5.0 10*3/uL 1.4 - 6.5 10*3/uL [facility] Neutrophils/100 WBC (Bld) 68.3 % 37.0 - 75.0 % [facility] Platelet mean volume (Bld) [Entitic vol] 8.9 fL [facility] Platelets (Bld) [#/Vol] 295 10*3/uL 130.0 - 400.0 10*3/uL [facility] RBC (Bld) [#/Vol] 4.31 10*6/uL 4.0 - 5.4 10*6/uL [facility] WBC (Bld) [#/Vol] 7.3 10*3/uL 3.6 - 11.0 10*3/uL [facility] COMPREHENSIVE METABOLIC PANE LOrdered By: Juanito Laird on 07-02-2020 Albumin [Mass/Vol] 4.1 G/dl 3.5 - 5.0 G/dl [facility] Albumin/Globulin [Mass ratio] 1.3 {ratio} [facility] ALP [Catalytic activity/Vol] 52 U/L [facility] ALT [Catalytic activity/Vol] 16 U/L [facility] AST [Catalytic activity/Vol] 29 U/L [facility] Bilirubin [Mass/Vol] 0.5 mg/dL [facility] Calcium [Mass/Vol] 9.2 mg/dL [facility] Chloride [Moles/Vol] 102 mmol/L [facility] CO2 [Moles/Vol] 22 mmol/L [facility] Creatinine [Mass/Vol] 0.59 mg/dL [facility] GFR COMMENT Average GFR for 30-3 9 years old = 109. [facility] Comment on above: Chronic Kidney disea se, GFR = <60. Kidney failure, GFR = <15. The GFR estimate is not adjusted for extreme body surface area or acute process, nor has it been validated for women or ethnic groups other than and . GFR/1.73 sq M.predicted among blacks MDRD (S/P/Bld) [Vol rate/Area] mL/min/{1.73_m2} ml/min/1.73sq. m [facility] GFR/1.73 sq M.predicted among non-blacks MDRD (S/P/Bld) [Vol rate/Area] mL/min/{1.73_m2} ml/min/1.73sq. m [facility] Glucose post fast [Mass/Vol] 84 mg/dL [facility] Comment on above: NORMAL <100 mg/dL PREDIABETES 101-126 mg/dL DIABETES 126 mg/dL or higher Interpretation and review of laboratory results Abnormal [facility] Potassium [Moles/Vol] 4.1 mmol/L [facility] Protein [Mass/Vol] 7.3 g/dL [facility] Sodium [Moles/Vol] 134 mmol/L Low [facility] Urea nitrogen [Mass/Vol] 15 mg/dL [facility] CT ABDOMEN/PELVIS WITHOUT CO NTRASTOrdered By: Juanito Laird on 07-02-2020 IMPRESSION: CT abdom en and CT pelvis studies demonstrate findings compatible with hepatic cysts as described, similar to prior study. Finding is compatible with complex right adnexal cyst as noted. Correlate for mild gastroenteritis. [facility] EXAMINATION: CT ABDOMEN/PELVIS WITHOUT CONTRAST HISTORY: Abdominal pain, vaginal bleeding for the past 2 days COMPARISON: CT abdomen and CT pelvis studies dated 01/30/2020 TECHNIQUE: CT examination of the abdomen and pelvis without IV contrast. Coronal and sagittal reformations were performed. Dose reduction techniques were achieved by using automated exposure control and/or adjustment of mA and/or kV according to patient size and/or use of iterative reconstruction technique. FINDINGS: Abdomen: Visualized lower lung mear appear grossly unremarkable. Views of the liver demonstrate several scattered areas of decreased attenuation similar to prior exam likely representing cysts given the similarity. Largest measures approximately 1.6 cm as previously noted. No obvious splenic mass. Patient is status post cholecystectomy. Pancreas and adrenal glands appear grossly unremarkable. Stomach appears grossly unremarkable. Fluid seen throughout the colon, correlate for mild gastroenteritis. No evidence of bowel obstruction. Visualized vascular structures are grossly intact. No evidence of adenopathy in the retroperitoneum. No obvious renal mass or obstructive uropathy. No evidence of renal or ureteral calculus. Pelvis: No evidence of ureteral or bladder calculus. No evidence of obstructive uropathy. No obvious bladder mass or wall thickening. Uterus appears grossly unremarkable. There is an area of decreased density measuring 5.9 x 3.8 cm in the right adnexal region compatible with complex proteinaceous and/or hemorrhagic cyst. Perirectal fat planes are grossly intact. Retained feces in the sigmoid colon with fluid in the remainder of the colon mixed with a small amount of feces, correlate for mild gastroenteritis. Visualized vascular structures are grossly intact. No evidence of adenopathy. Densities within the cecum likely related to nonspecific bowel content. Bony structures are grossly intact. [facility] User, Interfaces - 07/02/2020 2:22 PM EDT EXAMINATION: CT ABDOMEN/PELVIS WITHOUT CONTRAST HISTORY: Abdominal pain, vaginal bleeding for the past 2 days COMPARISON: CT abdomen and CT pelvis studies dated 01/30/2020 TECHNIQUE: CT examination of the abdomen and pelvis without IV contrast. Coronal and sagittal reformations were performed. Dose reduction techniques were achieved by using automated exposure control and/or adjustment of mA and/or kV according to patient size and/or use of iterative reconstruction technique. FINDINGS: Abdomen: Visualized lower lung mera appear grossly unremarkable. Views of the liver demonstrate several scattered areas of decreased attenuation similar to prior exam likely representing cysts given the similarity. Largest measures approximately 1.6 cm as previously noted. No obvious splenic mass. Patient is status post cholecystectomy. Pancreas and adrenal glands appear grossly unremarkable. Stomach appears grossly unremarkable. Fluid seen throughout the colon, correlate for mild gastroenteritis. No evidence of bowel obstruction. Visualized vascular structures are grossly intact. No evidence of adenopathy in the retroperitoneum. No obvious renal mass or obstructive uropathy. No evidence of renal or ureteral calculus. Pelvis: No evidence of ureteral or bladder calculus. No evidence of obstructive uropathy. No obvious bladder mass or wall thickening. Uterus appears grossly unremarkable. There is an area of decreased density measuring 5.9 x 3.8 cm in the right adnexal region compatible with complex proteinaceous and/or hemorrhagic cyst. Perirectal fat planes are grossly intact. Retained feces in the sigmoid colon with fluid in the remainder of the colon mixed with a small amount of feces, correlate for mild gastroenteritis. Visualized vascular structures are grossly intact. No evidence of adenopathy. Densities within the cecum likely related to nonspecific bowel content. Bony structures are grossly intact. IMPRESSION IMPRESSION: CT abdomen and CT pelvis studies demonstrate findings compatible with hepatic cysts as described, similar to prior study. Finding is compatible with complex right adnexal cyst as noted. Correlate for mild gastroenteritis. [facility] HCG ( test) Ql (U)O rdered By: Vaughn Ceja on 07-02-2020 [facility] HCG QUALITATIVE, URINEOrdere d By: Vaughn Ceja on 07-02-2020 HCG ( test) Ql (U) Negative NEGATIVE [facility] LACTATE, BLOODOrdered By: Catherine Laird on 07-02-2020 Lactate [Moles/Vol] 1.0 mmol/L [facility] LIPASEOrdered By: Juanito rosen on 07-02-2020 Lipase [Catalytic activity/Vol] 32 U/L 23 - 300 U/L [facility] No Panel InformationOrdered By: Juanito Laird on 07-02-2020 [facility] PROTIME-INROrdered By: Gautam Laird on 07-02-2020 INR Coag (PPP) [Relative time] 0.95 {INR} [facility] Comment on above: 2.0-3.0 THERAPEUTIC RANGE 2.5-3.5 MECHANICAL VALVE RANGE PT Coag (PPP) [Time] 12.9 s [facility] TYPE AND SCREEN - POSSIBLE T RANSFUSIONOrdered By: Juanito Laird on 07-02-2020 ABO and Rh group Nom (Bld ) Positive [facility] ARM BAND NUMBER [id number] [facility] Blood group antibody screen Ql Negative [facility] EXPIRATION DATE 07/05/2020,[id number] [facility] URINALYSIS, MACROOrdered By: Vaughn Ceja on 07-02-2020 Bilirubin Ql (U) Negative NEGATIVE [facility] Clarity (U) SLIGHTLY CLOUDY Abnormal CLEAR [facility] Color (U) PINK Abnormal YELLOW [facility] Glucose Test strip (U) [Mass/Vol] Negative NEGATIVE mg/dl [facility] Hemoglobin Ql (U) LARGE Abnormal NEGATIVE [facility] Interpretation and review of laboratory results Abnormal [facility] Ketones (U) [Mass/Vol] Negative NEGATIVE mg/dl [facility] Leukocyte esterase Test strip Ql (U) TRACE Abnormal NEGATIVE [facility] Nitrite Ql (U) Negative NEGATIVE [facility] pH (U) 5.5 [pH] [facility] Protein Ql (U) 100 mg/dl Abnormal NEGATIVE [facility] Specific gravity (U) [Rel density] <1.005 Low [facility] Urobilinogen (U) [Mass/Vol] 0.2 mg/dL [facility] URINE MICROSCOPICOrdered By: Vaughn Ceja on 07-02-2020 Bacteria LM.HPF (Urine sed) [#/Area] TRACE Abnormal NEGATIVE [facility] Casts LM.LPF (Urine sed) [#/Area] NONE NONE /LPF [facility] Crystals LM Nom (Urine sed) NONE NONE [facility] Epithelial cells LM Ql (Urine sed) 10 TO 20 /HPF [facility] Interpretation and review of laboratory results Abnormal [facility] Mucus Ql (Urine sed) Negative NEGATIVE [facility] RBC LM.HPF (Urine sed) [#/Area] TOO NUMEROUS TO COUNT Abnormal NEGATIVE /HPF [facility] Urine sediment comments LM John (Urine sed) POSSIBLY CONTAMINATED SPECIMEN, CULTURE MUST BE ORDERED SEPARATELY IF DEEMED NECESSARY. [facility] WBC LM.HPF (Urine sed) [#/Area] 1 TO 5 NEGATIVE /HPF [facility] US PELVIC WITH TRANSVAGINAL WITH DOPPLEROrdered By: Juanito Laird on 07-02-2020 IMPRESSION: 5.5 cm septated right ovarian cyst No evidence of right ovarian torsion Nonvisualization of the left ovary 4.1 cm myometrial masses, leiomyoma suspected [facility] EXAM: US PELVIC WITH TRANSVAGINAL WITH DOPPLER HISTORY: right ovarian torsion COMPARISON: None. TECHNIQUE: Grayscale, color and Doppler ultrasound. Abdominal and transvaginal images FINDINGS: The uterus is normal in size and contour measuring 8.1 x 4.0 x 5.4 cm. Area of hypoechogenicity in the fundal myometrium measuring 2.1 x 4.1 x 3.9 cm, a leiomyoma is favored. The endometrium measures 8 mm, normal. The right ovary is normal in size, contour and echotexture measuring 6.1 x 5.5 x 4.3 cm. Normal arterial and venous flow. Normal resistive index of 0.8. PSV/EDV: 12.4/6.3 cm/s. Normal venous flow of 3 cm/s Area of anechoic echogenicity measuring 5.5 x 3.1 x 3.5 cm with a single 3 mm septation Left ovary is not visualized Limited exam due to patient body habitus and bowel gas [facility] User, Interfaces - 07/02/2020 4:10 PM EDT EXAM: US PELVIC WITH TRANSVAGINAL WITH DOPPLER HISTORY: right ovarian torsion COMPARISON: None. TECHNIQUE: Grayscale, color and Doppler ultrasound. Abdominal and transvaginal images FINDINGS: The uterus is normal in size and contour measuring 8.1 x 4.0 x 5.4 cm. Area of hypoechogenicity in the fundal myometrium measuring 2.1 x 4.1 x 3.9 cm, a leiomyoma is favored. The endometrium measures 8 mm, normal. The right ovary is normal in size, contour and echotexture measuring 6.1 x 5.5 x 4.3 cm. Normal arterial and venous flow. Normal resistive index of 0.8. PSV/EDV: 12.4/6.3 cm/s. Normal venous flow of 3 cm/s Area of anechoic echogenicity measuring 5.5 x 3.1 x 3.5 cm with a single 3 mm septation Left ovary is not visualized Limited exam due to patient body habitus and bowel gas IMPRESSION IMPRESSION: 5.5 cm septated right ovarian cyst No evidence of right ovarian torsion Nonvisualization of the left ovary 4.1 cm myometrial masses, leiomyoma suspected [facility] CBC, EDIF, PLATE[employer]Ton 2019 ABSOLUTE BASOPHIL COUNT 0.0 10*3/uL 0 - 0.2 10*3/uL [facility] Basophils/100 WBC (Bld) 0.6 % 0 - 2 % [facility] Differential cell count method Nom (Bld) AUTO DIFF % [facility] Eosinophils (Bld) [#/Vol] 0.10 10*3/uL 0 - 0.7 10*3/uL [facility] Eosinophils/100 WBC (Bld) 2.4 % 0 - 11 % [facility] Erythrocyte distribution width (RBC) [Ratio] 15.2 % High 11.5 - 14.5 % [facility] Hematocrit (Bld) [Volume fraction] 39.4 % 36 - 48 % [facility] Hemoglobin (Bld) [Mass/Vol] 12.7 g/dL [facility] Interpretation and review of laboratory results Abnormal [facility] Lymphocytes (Bld) [#/Vol] 1.50 10*3/uL 1.2 - 3.4 10*3/uL [facility] Lymphocytes/100 WBC (Bld) 25.8 % 20 - 55 % [facility] MCH (RBC) [Entitic mass] 28.3 pg 26 - 35 PG [facility] MCHC (RBC) [Mass/Vol] 32.3 g/dL [facility] MCV (RBC) [Entitic vol] 87.6 fL [facility] Monocytes (Bld) [#/Vol] 0.3 10*3/uL 0 - 0.7 10*3/uL [facility] Monocytes/100 WBC (Bld) 5.6 % 0 - 10 % [facility] Neutrophils (Bld) [#/Vol] 3.7 10*3/uL 1.4 - 6.5 10*3/uL [facility] Neutrophils/100 WBC (Bld) 65.6 % 37 - 75 % [facility] Platelet mean volume (Bld) [Entitic vol] 9.2 fL [facility] Platelets (Bld) [#/Vol] 277 10*3/uL 130 - 400 10*3/uL [facility] RBC (Bld) [#/Vol] 4.50 10*6/uL 4 - 5.4 10*6/uL [facility] WBC (Bld) [#/Vol] 5.7 10*3/uL 3.6 - 11 10*3/uL [facility] CHEM 7 (LYTES,BUN,CREA,GLUC) on 01-30-2020 Chloride [Moles/Vol] 106 mmol/L [facility] CO2 [Moles/Vol] 20 mmol/L [facility] Creatinine [Mass/Vol] 0.67 mg/dL [employer] [facility] GFR/1.73 sq M predicted among blacks MDRD (S/P/Bld) [Vol rate/Area] mL/min/{1.73_m2} ml/min/1.73sq. m [facility] GFR/1.73 sq M predicted among non-blacks MDRD (S/P/Bld) [Vol rate/Area] mL/min/{1.73_m2} ml/min/1.73sq. m [facility] GFR/1.73 sq M predicted among non-blacks MDRD (S/P/Bld) [Vol rate/Area] Average GFR for 30-39 years old = 109. [facility] Comment on above: Chronic Kidney disea se, GFR = <60. Kidney failure, GFR = <15. The GFR estimate is not adjusted for extreme body surface area or acute process, nor has it been validated for women or ethnic groups other than and . Glucose post fast [Mass/Vol] 78 mg/dL [facility] Comment on above: NORMAL <100 mg/dL PREDIABETES 101-126 mg/dL DIABETES 126 mg/dL or higher Interpretation and review of laboratory results Abnormal [facility] Potassium [Moles/Vol] 3.8 mmol/L [facility] Sodium [Moles/Vol] 138 mmol/L [facility] Urea nitrogen [Mass/Vol] 8 mg/dL [facility] CT ABDOMEN/PELVIS WITH CONTR Daljit 01-30-2020 User, Interfaces - 01/30/2020 4:11 PM EST EXAMINATION: CT ABDOMEN/PELVIS WITH CONTRAST HISTORY: Right upper quadrant abdominal pain. Treated for bowel adhesions. Evaluate for obstruction. COMPARISON: CT 12/23/2019. TECHNIQUE: CT examination of the abdomen and pelvis following the administration of 75 mL of Omnipaque 350 intravenous contrast. Coronal and sagittal reformations were performed. Dose reduction techniques were achieved by using automated exposure control and/or adjustment of mA and/or kV according to patient size and/or use of iterative reconstruction technique. FINDINGS: LUNG BASES: Minor dependent atelectasis bilaterally. No pleural effusion is seen. ABDOMINAL AORTA: No aortic aneurysm identified. LYMPH NODES: No retroperitoneal, mesenteric or pelvic lymphadenopathy. LIVER: Liver contour appears smooth. Scattered hepatic cysts are seen, measuring up to 1.6 cm, grossly unchanged. BILIARY TREE AND GALLBLADDER: No intrahepatic or extrahepatic bile duct dilatation. Prior cholecystectomy. PANCREAS: Normal in size without masses or ductal dilatation. No peripancreatic inflammatory changes. SPLEEN: Normal in size without focal lesions. ADRENAL GLANDS: Normal bilaterally, without nodules. KIDNEYS/URINARY BLADDER: Kidneys enhance in a symmetric fashion. No parenchymal lesions identified. No KUB stones or hydronephrosis identified. The urinary bladder appears unremarkable. GASTROINTESTINAL TRACT: Scattered fluid is seen throughout nondilated small bowel. No bowel obstruction is identified. The stomach and duodenum appear unremarkable. Prior appendectomy. PERITONEAL CAVITY AND SURFACES: No free fluid. No free intraperitoneal air. REPRODUCTIVE ORGANS: Uterus and right adnexa appear unremarkable. Left ovarian cyst measures 4.7 x 3.8 cm. ABDOMINAL WALL: No abdominal hernias are seen. OSSEOUS STRUCTURES: No aggressive appearing osseous lesions. No compression fracture is identified. IMPRESSION IMPRESSION: 1. Scattered fluid throughout nondilated small bowel may correlate with enteritis or mild ileus pattern. No bowel obstruction. 2. Left ovarian cyst measures 4.7 cm. Pelvic ultrasound could be considered, if clinical symptoms warrant. 3. Hepatic cysts, unchanged. 4. Prior cholecystectomy and appendectomy. 2 [facility] EXAMINATION: CT ABDOMEN/PELVIS WITH CONTRAST HISTORY: Right upper quadrant abdominal pain. Treated for bowel adhesions. Evaluate for obstruction. COMPARISON: CT 12/23/2019. TECHNIQUE: CT examination of the abdomen and pelvis following the administration of 75 mL of Omnipaque 350 intravenous contrast. Coronal and sagittal reformations were performed. Dose reduction techniques were achieved by using automated exposure control and/or adjustment of mA and/or kV according to patient size and/or use of iterative reconstruction technique. FINDINGS: LUNG BASES: Minor dependent atelectasis bilaterally. No pleural effusion is seen. ABDOMINAL AORTA: No aortic aneurysm identified. LYMPH NODES: No retroperitoneal, mesenteric or pelvic lymphadenopathy. LIVER: Liver contour appears smooth. Scattered hepatic cysts are seen, measuring up to 1.6 cm, grossly unchanged. BILIARY TREE AND GALLBLADDER: No intrahepatic or extrahepatic bile duct dilatation. Prior cholecystectomy. PANCREAS: Normal in size without masses or ductal dilatation. No peripancreatic inflammatory changes. SPLEEN: Normal in size without focal lesions. ADRENAL GLANDS: Normal bilaterally, without nodules. KIDNEYS/URINARY BLADDER: Kidneys enhance in a symmetric fashion. No parenchymal lesions identified. No KUB stones or hydronephrosis identified. The urinary bladder appears unremarkable. GASTROINTESTINAL TRACT: Scattered fluid is seen throughout nondilated small bowel. No bowel obstruction is identified. The stomach and duodenum appear unremarkable. Prior appendectomy. PERITONEAL CAVITY AND SURFACES: No free fluid. No free intraperitoneal air. REPRODUCTIVE ORGANS: Uterus and right adnexa appear unremarkable. Left ovarian cyst measures 4.7 x 3.8 cm. ABDOMINAL WALL: No abdominal hernias are seen. OSSEOUS STRUCTURES: No aggressive appearing osseous lesions. No compression fracture is identified. [facility] IMPRESSION: 1. Scattered fluid throughout nondilated small bowel may correlate with enteritis or mild ileus pattern. No bowel obstruction. 2. Left ovarian cyst measures 4.7 cm. Pelvic ultrasound could be considered, if clinical symptoms warrant. 3. Hepatic cysts, unchanged. 4. Prior cholecystectomy and appendectomy. 2 [facility] HCG QUALITATIVE, URINEon HCG ( test) Ql (U) Negative NEGATIVE [facility] HEPATIC FUNCTION PANELon Albumin [Mass/Vol] 4.6 g/dL [facility] ALP [Catalytic activity/Vol] 52 U/L [facility] ALT [Catalytic activity/Vol] 18 U/L [facility] AST [Catalytic activity/Vol] 31 U/L [facility] Bilirubin [Mass/Vol] 0.5 mg/dL [facility] Bilirubin[employer]direct [Mass/Vol] 0.0 mg/dL [facility] Protein [Mass/Vol] 7.7 g/dL [facility] LIPASEon 01-30-2020 Lipase [Catalytic activity/Vol] 33 U/L 23 - 300 U/L [facility] URINALYSIS, MACROon 01-30-20 20 Bilirubin Ql (U) Negative NEGATIVE [facility] Clarity (U) CLEAR CLEAR [facility] Color (U) YELLOW YELLOW [facility] Glucose Test strip (U) [Mass/Vol] Negative NEGATIVE mg/dl [facility] Hemoglobin Ql (U) Negative NEGATIVE [facility] Interpretation and review of laboratory results Abnormal [facility] Ketones (U) [Mass/Vol] Negative NEGATIVE mg/dl [facility] Leukocyte esterase Test strip Ql (U) Negative NEGATIVE [facility] Nitrite Ql (U) Negative NEGATIVE [facility] pH (U) 7.5 [pH] High [facility] Protein Ql (U) Negative NEGATIVE mg/dl [facility] Specific gravity (U) [Rel density] 1.015 [facility] Urobilinogen (U) [Mass/Vol] 0.2 [facility] Vital Signs Date Time Vital Sign Value Performing Clinician Facility 02-13-2023 17:30-0500 Diastolic blood pressure 73 mm[Hg] [employer] OFFICER-C Jaquan Cristhian Work Phone: [facility] 02-13-2023 17:30-0500 Heart rate 61 /min [employer] OFFICER-C Jaquan Cristhian Work Phone: [facility] 02-13-2023 17:30-0500 Respiratory rate 18 /min [employer]ICER-C Jaquan Cristhian Work Phone: [facility] 02-13-2023 17:30-0500 SaO2% (BldA) [Mass fraction] 100 % [employer] OFFICER-C Jaquan Cristhian Work Phone: [facility] 02-13-2023 17:30-0500 Systolic blood pressure 121 mm[Hg] [employer] OFFICER-C Jaquan Cristhian Work Phone: [facility] 02-13-2023 10:43-0500 Body height 167.64 cm [employer] OFFICER-C Jaquan Cristhian Work Phone: [facility] 02-13-2023 10:43-0500 Body weight 83 kg [employer] OFFICER-C Jaquan Cristhian Work Phone: [facility] 02-13-2023 10:42-0500 Body temperature 98.2 [degF] [employer] OFFICER-C Jaquan Cristhian Work Phone: [facility] 12-31-2022 15:49-0500 Diastolic blood pressure 82 mm[Hg] Mateusz Jose [facility] 12-31-2022 15:49-0500 Heart rate 81 /min Mateusz Jose [facility] 12-31-2022 15:49-0500 Mean blood pressure 96 mm[Hg] Mateusz Jose [facility] 12-31-2022 15:49-0500 Respiratory rate 16 /min Mateusz Jose [facility] 12-31-2022 15:49-0500 SaO2% (BldA) [Mass fraction] 100 % Mateusz Jose [facility] 12-31-2022 15:49-0500 Systolic blood pressure 124 mm[Hg] Mateusz Jose [facility] 12-31-2022 15:40-0500 Hourly Rounding Mateusz Jose [facility] 12-31-2022 15:40-0500 Promise to Return Mateusz Jose [facility] 12-31-2022 15:00-0500 Diastolic blood pressure 78 mm[Hg] Mateusz Jose [facility] 12-31-2022 15:00-0500 Heart rate 76 /min Mateusz Jose [facility] 12-31-2022 15:00-0500 Mean blood pressure 91 mm[Hg] Mateusz Jose [facility] 12-31-2022 15:00-0500 Systolic blood pressure 117 mm[Hg] Mateusz Jose [facility] 12-31-2022 14:40-0500 Hourly Rounding Mateusz Jose [facility] 12-31-2022 14:40-0500 Promise to Return Mateusz Jose [facility] 12-31-2022 14:00-0500 Diastolic blood pressure 83 mm[Hg] Mateusz Jose [facility] 12-31-2022 14:00-0500 Heart rate 71 /min Mateusz Jose [facility] 12-31-2022 14:00-0500 Mean blood pressure 99 mm[Hg] Mateusz Jose [facility] 12-31-2022 14:00-0500 Systolic blood pressure 132 mm[Hg] Mateusz Jose [facility] 12-31-2022 13:40-0500 Hourly Rounding Mateusz Jose [facility] 12-31-2022 13:40-0500 Promise to Return Mateusz Jose [facility] 12-31-2022 12:42-0500 Body temperature 97.7 [degF] Mateusz Jose [facility] 12-31-2022 12:42-0500 Heart rate 88 /min Mateusz Jose [facility] 12-04-2022 09:54-0400 Body height 166 cm Agustin Zamorano MD Work Phone: [facility] 12-04-2022 09:54-0400 Body weight 83.78 kg Agustin Zamorano MD Work Phone: [facility] 12-04-2022 09:54-0400 Diastolic blood pressure 62 mm[Hg] Agustin Zamorano MD Work Phone: [facility] 12-04-2022 09:54-0400 Heart rate 91 /min Agustin Zamorano MD Work Phone: [facility] 12-04-2022 09:54-0400 Systolic blood pressure 112 mm[Hg] Agustin Zamorano MD Work Phone: [facility] 11-04-2022 12:00-0400 Body temperature 97.7 [degF] Rheu Jeanne Work Phone: [facility] 11-04-2022 12:00-0400 Diastolic blood pressure 65 mm[Hg] Rheu Jeanne Work Phone: [facility] 11-04-2022 12:00-0400 Heart rate 97 /min Rheu Jeanne Work Phone: [facility] 11-04-2022 09:19-0400 Body height 167.6 cm Decaon Kat MD Work Phone: [facility] 11-04-2022 09:19-0400 Body temperature 97.81 [degF] Deacon Kat MD Work Phone: [facility] 11-04-2022 09:19-0400 Body weight 83.46 kg Deacon Kat MD Work Phone: [facility] 11-04-2022 09:19-0400 Diastolic blood pressure 81 mm[Hg] Deacon Kat MD Work Phone: [facility] 11-04-2022 09:19-0400 Heart rate 82 /min Deacon Kat MD Work Phone: [facility] 11-04-2022 09:19-0400 Respiratory rate 18 /min Deacon Kat MD Work Phone: [facility] 11-04-2022 09:19-0400 SaO2% (BldA) [Mass fraction] 98 % Deacon Kat MD Work Phone: [facility] 11-04-2022 09:19-0400 Systolic blood pressure 125 mm[Hg] Deacon Kat MD Work Phone: [facility] 11-02-2022 13:52-0400 Diastolic blood pressure 82 mm[Hg] Dimitri Walker MD Work Phone: [facility] 11-02-2022 13:52-0400 Heart rate 82 /min Dimitri Walker MD Work Phone: [facility] 11-02-2022 13:52-0400 Respiratory rate 18 /min Dimitri Walker MD Work Phone: [facility] 11-02-2022 13:52-0400 Systolic blood pressure 128 mm[Hg] Dimitri Walker MD Work Phone: [facility] [employer] 11-02-2022 10:35-0400 Body mass index (BMI) [Ratio] 30.18 kg/m2 Dimitri Walker MD Work Phone: [employer] 11-02-2022 10:35-0400 Body weight 84.82 kg Dimitri Walker MD Work Phone: [facility] [employer] Comment on above: stand up scale triage room 11-02-2022 10:34-0400 Body temperature 98.29 [degF] Dimitri Walker MD Work Phone: [employer] [facility] [employer] 11-02-2022 10:34-0400 SaO2% (BldA) [Mass fraction] 98 % Dimitri Walker MD Work Phone: [employer] [facility] 10-31-2022 08:30-0400 Diastolic blood pressure 67 mm[Hg] Jalyn Suresh DO Work Phone: [facility] 10-31-2022 08:30-0400 Systolic blood pressure 120 mm[Hg] Jalyn Suresh DO Work Phone: [facility] 10-31-2022 06:32-0400 Body temperature 97.7 [degF] Jalyn Suresh DO Work Phone: [facility] 10-31-2022 06:32-0400 Heart rate 92 /min Jalyn Suresh DO Work Phone: [facility] 10-31-2022 06:32-0400 Respiratory rate 19 /min Jalyn Suresh DO Work Phone: [facility] [employer] 10-31-2022 06:32-0400 SaO2% (BldA) [Mass fraction] 100 % Jalyn Suresh DO Work Phone: [facility] 10-20-2022 11:52-0400 Diastolic blood pressure 86 mm[Hg] Earnest Jett [facility] 10-20-2022 11:52-0400 Heart rate 75 /min Earnest Blancoe [facility] 10-20-2022 11:52-0400 Respiratory rate 15 /min Earnest Blancoe [facility] 10-20-2022 11:52-0400 SaO2% (BldA) [Mass fraction] 99 % Earnest Blancoe [facility] 10-20-2022 11:52-0400 Systolic blood pressure 141 mm[Hg] Earnest Blancoe [facility] 10-20-2022 10:31-0400 Diastolic blood pressure 70 mm[Hg] Earnest Johnie [facility] 10-20-2022 10:31-0400 Heart rate 70 /min Earnest Blancoe [facility] 10-20-2022 10:31-0400 Mean blood pressure 92 mm[Hg] Earnest Johnie [facility] 10-20-2022 10:31-0400 Respiratory rate 16 /min Earnest Johnie [facility] 10-20-2022 10:31-0400 SaO2% (BldA) [Mass fraction] 100 % Earnest Johnie [facility] 10-20-2022 10:31-0400 Systolic blood pressure 137 mm[Hg] Earnest Johnie [facility] 10-20-2022 09:17-0400 Diastolic blood pressure 63 mm[Hg] Earnest Johnie [facility] 10-20-2022 09:17-0400 Heart rate 77 /min Earnest Johnie [facility] 10-20-2022 09:17-0400 Mean blood pressure 85 mm[Hg] Earnest Johnie [facility] 10-20-2022 09:17-0400 Respiratory rate 18 /min Earnest Johnie [facility] 10-20-2022 09:17-0400 SaO2% (BldA) [Mass fraction] 100 % Earnest Johnie [facility] 10-20-2022 09:17-0400 Systolic blood pressure 128 mm[Hg] Earnest Johnie [facility] 10-20-2022 08:17-0400 Body temperature 97.88 [degF] Earnest Johnie [facility] 10-19-2022 13:30-0400 Diastolic blood pressure 82 mm[Hg] Earnest Johnie [facility] 10-19-2022 13:30-0400 Heart rate 67 /min Earnest Johnie [facility] 10-19-2022 13:30-0400 Mean blood pressure 100 mm[Hg] Earnest Johnie [facility] 10-19-2022 13:30-0400 Respiratory rate 20 /min Earnest Johnie [facility] 10-19-2022 13:30-0400 SaO2% (BldA) [Mass fraction] 100 % Earnest Johnie [facility] 10-19-2022 13:30-0400 Systolic blood pressure 136 mm[Hg] Earnest Johnie [facility] 10-19-2022 13:00-0400 Heart rate 61 /min Earnest Johnie [facility] 10-19-2022 13:00-0400 Respiratory rate 18 /min Earnest Johnie [facility] 10-19-2022 13:00-0400 Systolic blood pressure 127 mm[Hg] Earnest Johnie [facility] 10-19-2022 12:30-0400 Diastolic blood pressure 80 mm[Hg] Earnest Johnie [facility] 10-19-2022 12:30-0400 Heart rate 60 /min Earnest Johnie [facility] 10-19-2022 12:30-0400 Mean blood pressure 97 mm[Hg] Earnest Johnie [facility] 10-19-2022 12:30-0400 Respiratory rate 20 /min Earnest Johnie [facility] 10-19-2022 12:30-0400 SaO2% (BldA) [Mass fraction] 100 % Earnest Johnie [facility] 09-04-2023 12:30-0400 Systolic blood pressure 132 mm[Hg] Earnest Jett [facility] 10-19-2022 08:34-0400 Body temperature 96.62 [degF] Earnest Jett [facility] 10-19-2022 08:34-0400 Heart rate 73 /min Earnest Jett [facility] 09-28-2022 07:54-0400 Body height 167.[address] Work Phone: [facility] 09-28-2022 07:54-0400 Body weight 83.[address] Work Phone: [facility] 09-18-2022 15:12-0400 Body height 167.6 cm Breanna Stern APRN.OBGYN HOSPITALIST PHYSICIAN Work Phone: [facility] 09-18-2022 15:12-0400 Body temperature 97.5 [degF] Breanna Stern APRN.OBGYN HOSPITALIST PHYSICIAN Work Phone: [facility] 09-18-2022 15:12-0400 Body weight 83.46 kg Breanna Stern APRN.OBGYN HOSPITALIST PHYSICIAN Work Phone: [facility] 09-18-2022 15:12-0400 Diastolic blood pressure 88 mm[Hg] Breanna Stern APRN.OBGYN HOSPITALIST PHYSICIAN Work Phone: [facility] 09-18-2022 15:12-0400 Heart rate 65 /min Breanna Stern APRN.OBGYN HOSPITALIST PHYSICIAN Work Phone: [facility] 09-18-2022 15:12-0400 SaO2% (BldA) [Mass fraction] 99 % Breanna Stern APRN.OBGYN HOSPITALIST PHYSICIAN Work Phone: [facility] 09-18-2022 15:12-0400 Systolic blood pressure 118 mm[Hg] Breanna Stern APRN.OBGYN HOSPITALIST PHYSICIAN Work Phone: [facility] 07-29-2022 08:40-0400 Blood Pressure Location Rajni Lue [facility] 07-29-2022 08:40-0400 Diastolic blood pressure 86 mm[Hg] Rajni Lue [facility] 07-29-2022 08:40-0400 Heart rate 71 /min Rajni Lue [facility] 07-29-2022 08:40-0400 Systolic blood pressure 127 mm[Hg] Rajni Lue [facility] 07-22-2022 10:08-0400 Body height 167.6 cm Kasie Avalos MD Work Phone: [facility] 07-22-2022 10:08-0400 Body temperature 98.1 [degF] Kasei Avalos MD Work Phone: [facility] 07-22-2022 10:08-0400 Body weight 79.92 kg Kasie Avalos MD Work Phone: [facility] 07-22-2022 10:08-0400 Diastolic blood pressure 89 mm[Hg] Kasie Avalos MD Work Phone: [facility] 07-22-2022 10:08-0400 Heart rate 72 /min Kasie Avalos MD Work Phone: [facility] 07-22-2022 10:08-0400 SaO2% (BldA) [Mass fraction] 100 % Kasie Avalos MD Work Phone: [facility] 07-22-2022 10:08-0400 Systolic blood pressure 136 mm[Hg] Kasie Avalos MD Work Phone: [facility] 06-12-2022 10:00-0400 Body height 167.6 cm Ciara Bello PA-C Work Phone: [facility] 06-12-2022 10:00-0400 Body temperature 97.5 [degF] Ciara Yinganti PA-C Work Phone: [facility] 06-12-2022 10:00-0400 Body weight 84.37 kg Ciara Mary Carmenti PA-C Work Phone: [facility] 06-12-2022 10:00-0400 Diastolic blood pressure 78 mm[Hg] Ciara Mary Carmenti PA-C Work Phone: [facility] 06-12-2022 10:00-0400 Heart rate 68 /min Ciara Mary Carmenti PA-C Work Phone: [facility] 06-12-2022 10:00-0400 Systolic blood pressure 123 mm[Hg] Ciara Humphreyganti PA-C Work Phone: [facility] 06-10-2022 17:43-0400 Diastolic blood pressure 74 mm[Hg] [facility] 06-10-2022 17:43-0400 Heart rate 65 /min [facility] 06-10-2022 17:43-0400 Mean blood pressure 90 mm[Hg] [facility] 06-10-2022 17:43-0400 Respiratory rate 16 /min [facility] 06-10-2022 17:43-0400 SaO2% (BldA) [Mass fraction] 100 % [facility] 06-10-2022 17:43-0400 Systolic blood pressure 122 mm[Hg] [facility] 06-10-2022 17:00-0400 Diastolic blood pressure 77 mm[Hg] [facility] 06-10-2022 17:00-0400 Heart rate 66 /min [facility] 06-10-2022 17:00-0400 Mean blood pressure 94 mm[Hg] [facility] 06-10-2022 17:00-0400 Systolic blood pressure 129 mm[Hg] [facility] 06-10-2022 16:00-0400 Heart rate 83 /min [facility] 06-10-2022 16:00-0400 Mean blood pressure 93 mm[Hg] [facility] 06-10-2022 16:00-0400 Systolic blood pressure 130 mm[Hg] [facility] 06-10-2022 12:32-0400 Body temperature 97.7 [degF] [facility] 06-10-2022 12:32-0400 Heart rate 88 /min [facility] 06-10-2022 12:32-0400 Respiratory rate 18 /min [facility] 03-06-2022 15:30-0500 Diastolic blood pressure 70 mm[Hg] Deacon Kat MD Work Phone: [facility] 03-06-2022 15:30-0500 Heart rate 67 /min Deacon Kat MD Work Phone: [facility] 03-06-2022 15:30-0500 Respiratory rate 16 /min Deacon Kat MD Work Phone: [facility] 03-06-2022 15:30-0500 SaO2% (BldA) [Mass fraction] 100 % Deacon Kat MD Work Phone: [facility] 03-06-2022 15:30-0500 Systolic blood pressure 105 mm[Hg] Deacon Kat MD Work Phone: [facility] 03-06-2022 13:00-0500 Body temperature 96.8 [degF] Deacon Kat MD Work Phone: [facility] 03-05-2022 09:33-0500 Body weight 89.81 kg Breanna Merlin ANDREWS Work Phone: [facility] 02-04-2022 09:23-0500 Body height 167.[address] Work Phone: [facility] 02-04-2022 09:23-0500 Body weight 93.[address] Work Phone: [facility] 02-03-2022 14:55-0500 Body height 167.6 cm Breanna Stern ROVING WEIGHT GAUGER.OBGYN HOSPITALIST PHYSICIAN Work Phone: [facility] 02-03-2022 14:55-0500 Body temperature 97 [degF] Breanna Stern ROVING WEIGHT GAUGER.OBGYN HOSPITALIST PHYSICIAN Work Phone: [facility] 02-03-2022 14:55-0500 Body weight 93.44 kg Breanna Stern ROVING WEIGHT GAUGER.OBGYN HOSPITALIST PHYSICIAN Work Phone: [facility] 02-03-2022 14:55-0500 Diastolic blood pressure 81 mm[Hg] Breanna Stern ROVING WEIGHT GAUGER.OBGYN HOSPITALIST PHYSICIAN Work Phone: [facility] 02-03-2022 14:55-0500 Heart rate 76 /min Breanna Stern ROVING WEIGHT GAUGER.OBGYN HOSPITALIST PHYSICIAN Work Phone: [facility] 02-03-2022 14:55-0500 SaO2% (BldA) [Mass fraction] 99 % Breanna Stern ROVING WEIGHT GAUGER.OBGYN HOSPITALIST PHYSICIAN Work Phone: [facility] 02-03-2022 14:55-0500 Systolic blood pressure 128 mm[Hg] Breanna Stern ROVING WEIGHT GAUGER.OBGYN HOSPITALIST PHYSICIAN Work Phone: [facility] 01-28-2022 08:41-0500 Body height 167.6 cm Pacc 2 Work Phone: [facility] 01-28-2022 08:41-0500 Body temperature 97.9 [degF] Pacc 2 Work Phone: [facility] 01-28-2022 08:41-0500 Body weight 94.8 kg Pacc 2 Work Phone: [facility] 01-28-2022 08:41-0500 Diastolic blood pressure 85 mm[Hg] Pacc 2 Work Phone: [facility] 01-28-2022 08:41-0500 Heart rate 65 /min Pacc 2 Work Phone: [facility] 01-28-2022 08:41-0500 Respiratory rate 16 /min Pacc 2 Work Phone: [facility] 01-28-2022 08:41-0500 SaO2% (BldA) [Mass fraction] 100 % Pacc 2 Work Phone: [facility] 01-28-2022 08:41-0500 Systolic blood pressure 131 mm[Hg] Pacc 2 Work Phone: [facility] 01-02-2022 11:06-0500 Body weight 92.99 kg Sabina Joy APRN.CNP Work Phone: [facility] 12-25-2021 10:10-0500 Diastolic blood pressure 76 mm[Hg] Britt Cross MD Work Phone: [facility] 12-25-2021 10:10-0500 Heart rate 74 /min Britt Cross MD Work Phone: [facility] 12-25-2021 10:10-0500 Respiratory rate 18 /min Britt Cross MD Work Phone: [facility] 12-25-2021 10:10-0500 SaO2% (BldA) [Mass fraction] 100 % Britt Cross MD Work Phone: [facility] 12-25-2021 10:10-0500 Systolic blood pressure 140 mm[Hg] Britt Cross MD Work Phone: [facility] 12-25-2021 08:26-0500 Body height 167.6 cm Britt Cross MD Work Phone: [facility] 12-25-2021 08:26-0500 Body temperature 98.1 [degF] Britt Cross MD Work Phone: [facility] 12-25-2021 08:26-0500 Body weight 92.99 kg Britt Cross MD Work Phone: [facility] 10-09-2021 15:44-0400 Body height 167.6 cm Sabina Vacco ROVING WEIGHT GAUGER.OBGYN HOSPITALIST PHYSICIAN Work Phone: [facility] 10-09-2021 15:44-0400 Body weight 89.81 kg Sabina Vacco ROVING WEIGHT GAUGER.OBGYN HOSPITALIST PHYSICIAN Work Phone: [facility] 08-30-2021 03:47-0400 Diastolic blood pressure 70 mm[Hg] Pablo Atwood DO Work Phone: [employer] 08-30-2021 03:47-0400 Systolic blood pressure 130 mm[Hg] Pablo Atwood DO Work Phone: [employer] 08-30-2021 03:46-0400 Body temperature 100.4 [degF] Pablo Atwood DO Work Phone: [employer] 08-30-2021 03:46-0400 Heart rate 107 /min Pablo Atwood DO Work Phone: [employer] 08-30-2021 03:46-0400 Respiratory rate 19 /min Pablo Atwood DO Work Phone: [employer] 08-30-2021 03:46-0400 SaO2% (BldA) [Mass fraction] 96 % Pablo Atwood DO Work Phone: [employer] 08-28-2021 07:54-0400 Body height 167.[address] Work Phone: [facility] 08-28-2021 07:54-0400 Body weight 90.[address] Work Phone: [facility] 08-17-2021 12:00-0400 Body height 167.64 cm Shanna June Other [employer] Other 08-17-2021 12:00-0400 Body mass index (BMI) [Ratio] 33.08 kg/m2 Shanna June Other [employer] Other 08-17-2021 12:00-0400 Body temperature 98.1 [degF] Shanna June Other [employer] Other 08-17-2021 12:00-0400 Body weight 92.99 kg Shanna June Other [employer] Other 08-17-2021 12:00-0400 Diastolic blood pressure 80 mm[Hg] Shanna June Other [employer] Other 08-17-2021 12:00-0400 Respiratory rate 18 /min Shanna June Other [employer] Other 08-17-2021 12:00-0400 SaO2% (BldA) [Mass fraction] 99 % Shanna June Other [employer] Other 08-17-2021 12:00-0400 Systolic blood pressure 137 mm[Hg] Shanna June Other [employer] Other 07-27-2021 14:25-0400 Respiratory rate 18 /min Angela Do MD Work Phone: [employer] 07-27-2021 14:03-0400 SaO2% (BldA) [Mass fraction] 98 % Angela Do MD Work Phone: [employer] 07-27-2021 13:27-0400 Diastolic blood pressure 44 mm[Hg] Angela Do MD Work Phone: [employer] 07-27-2021 13:27-0400 Systolic blood pressure 110 mm[Hg] Angela Do MD Work Phone: [employer] 07-27-2021 10:18-0400 Body mass index (BMI) [Ratio] 31.47 kg/m2 Angela Do MD Work Phone: [facility] [employer] 07-27-2021 10:18-0400 Body temperature 98.6 [degF] Angela Do MD Work Phone: [facility] [employer] 07-27-2021 10:18-0400 Body weight 88.45 kg Angela Do MD Work Phone: [facility] [employer] 07-27-2021 10:18-0400 Heart rate 71 /min Angela Do MD Work Phone: [facility] [employer] 03-31-2021 11:00-0500 Body height 167.64 cm Shanna Slade Other [employer] Other 03-31-2021 11:00-0500 Body mass index (BMI) [Ratio] 33.08 kg/m2 Shanna June Other [employer] Other 03-31-2021 11:00-0500 Body temperature 98 [degF] Shanna June Other [employer] Other 03-31-2021 11:00-0500 Body weight 92.99 kg Shanna Slade Other [employer] Other 03-31-2021 11:00-0500 Diastolic blood pressure 91 mm[Hg] Shanna June Other [employer] Other 03-31-2021 11:00-0500 Respiratory rate 18 /min Shanna June Other [employer] Other 03-31-2021 11:00-0500 SaO2% (BldA) [Mass fraction] 100 % Shanna June Other [employer] Other 03-31-2021 11:00-0500 Systolic blood pressure 142 mm[Hg] Shanna June Other [employer] Other 01-28-2021 12:00-0500 Body height 167.64 cm Shanna June Other [employer] Other 01-28-2021 12:00-0500 Body mass index (BMI) [Ratio] 33.08 kg/m2 Shanna June Other [employer] Other 01-28-2021 12:00-0500 Body temperature 98 [degF] Shanna June Other [employer] Other 01-28-2021 12:00-0500 Body weight 92.99 kg Shanna June Other [employer] Other 01-28-2021 12:00-0500 Diastolic blood pressure 92 mm[Hg] Shanna June Other [employer] Other 01-28-2021 12:00-0500 Respiratory rate 18 /min Shanna June Other [employer] Other 01-28-2021 12:00-0500 SaO2% (BldA) [Mass fraction] 100 % Shanna June Other [employer] Other 01-28-2021 12:00-0500 Systolic blood pressure 143 mm[Hg] Shanna Granadosault Other [employer] Other 12-17-2020 17:30-0400 Body height 167.64 cm Shanna Granadosault Other [employer] Other 12-17-2020 17:30-0400 Body mass index (BMI) [Ratio] 32.92 kg/m2 Shnana June Other [employer] Other 12-17-2020 17:30-0400 Body temperature 98.2 [degF] Shanna June Other [employer] Other 12-17-2020 17:30-0400 Body weight 92.53 kg Shanna June Other [employer] Other 12-17-2020 17:30-0400 Diastolic blood pressure 71 mm[Hg] Shanna June Other [employer] Other 12-17-2020 17:30-0400 Respiratory rate 18 /min Shanna June Other [employer] Other 12-17-2020 17:30-0400 SaO2% (BldA) [Mass fraction] 100 % Shanna June Other [employer] Other 12-17-2020 17:30-0400 Systolic blood pressure 117 mm[Hg] Shanna June Other [employer] Other 12-14-2020 15:07-0400 Body height 167.6 cm Shanna Granadosault ROVING WEIGHT GAUGER - TACTICAL DECEPTION PLANS OFFICER Work Phone: [employer] Work Phone: 12-14-2020 15:07-0400 Body mass index (BMI) [Ratio] 32.77 kg/m2 Shanna Granadosault ROVING WEIGHT GAUGER - TACTICAL DECEPTION PLANS OFFICER Work Phone: [employer] Work Phone: 12-14-2020 15:07-0400 Body temperature 98.8 [degF] Shanna June ROVING WEIGHT GAUGER - TACTICAL DECEPTION PLANS OFFICER Work Phone: [employer] Work Phone: 12-14-2020 15:07-0400 Body weight 92.08 kg Shanna June ROVING WEIGHT GAUGER - TACTICAL DECEPTION PLANS OFFICER Work Phone: [employer] Work Phone: 12-14-2020 15:07-0400 Diastolic blood pressure 90 mm[Hg] Shanna June ROVING WEIGHT GAUGER - TACTICAL DECEPTION PLANS OFFICER Work Phone: [employer] Work Phone: 12-14-2020 15:07-0400 Heart rate 85 /min Shanna June ROVING WEIGHT GAUGER - TACTICAL DECEPTION PLANS OFFICER Work Phone: [employer] Work Phone: 12-14-2020 15:07-0400 Respiratory rate 20 /min Shanna June ROVING WEIGHT GAUGER - TACTICAL DECEPTION PLANS OFFICER Work Phone: [employer] Work Phone: 12-14-2020 15:07-0400 SaO2% (BldA) [Mass fraction] 100 % Shanna June ROVING WEIGHT GAUGER - TACTICAL DE[employer]ION PLANS OFFICER Work Phone: [employer] Work Phone: 12-14-2020 15:07-0400 Systolic blood pressure 139 mm[Hg] Shanna June [employer]OVING WEIGHT GAUGER - TACTICAL DE[employer]ION PLANS OFFICER Work Phone: [employer] Work Phone: 07-02-2020 13:16-0400 Diastolic blood pressure 56 mm[Hg] Vaughn Ceja MD Work Phone: [employer] 07-02-2020 13:16-0400 Heart rate 71 /min Vaughn Ceja MD Work Phone: [employer] 07-02-2020 13:16-0400 Respiratory rate 18 /min [facility]n [facility] MD [facility] 07-02-2020 13:16-0400 SaO2% (BldA) [Mass fraction] 99 % Vaughn Ceja MD Work Phone: [facility] 07-02-2020 13:16-0400 Systolic blood pressure 165 mm[Hg] Vaughn Ceja MD Work Phone: [facility] 07-02-2020 12:44-0400 Body temperature 97.39 [degF] Vaughn Ceja MD [facility] 07-02-2020 12:35-0400 Body height 167.6 cm Vaughn Ceja MD Work Phone: [facility] 07-02-2020 12:35-0400 Body mass index (BMI) [Ratio] 37.12 kg/m2 Vaughn Ceja MD [facility] 07-02-2020 12:35-0400 Body weight 104.33 kg Vaughn Ceja MD Work Phone: [facility] 01-30-2020 17:34-0500 BP Diastolic 76 mm[Hg] [facility] 01-30-2020 17:34-0500 BP Systolic 139 mm[Hg] [facility] 01-30-2020 17:34-0500 Pulse (Heart Rate) 87 /min [facility] 01-30-2020 17:34-0500 Pulse Oximetry 100 % [facility] 01-30-2020 17:34-0500 Respiratory Rate 18 /min [facility] 01-30-2020 13:22-0500 Height 167.6 cm [facility] 01-30-2020 13:16-0500 Body Temperature 97.81 [degF] [facility] Encounters Encounter Date Encounter Type Care Provider Facility Start: 02-19-2023 Evaluation and management of inpatient [facility] Start: 02-13-2023 End: 02-13-2023 Emergency department patient visit Claus Obrien Facility:[facility] Start: 02-13-2023 End: 02-13-2023 Emergency department patient visit PAO Morrow Work Phone: [facility] Work Phone: Start: 02-12-2023 End: 02-12-2023 Emergency department patient visit NO ASSIGNED PCP GENERIC PROVIDER [facility] Start: 02-10-2023 End: 02-10-2023 ambulatory JAQUAN L CRISTHIAN Facility:[facility] Start: 02-03-2023 End: 02-04-2023 ambulatory MONTESSORI PROGRAM DIRECTOR Jaquan L Cristhian Facility:[facility] Start: 01-15-2023 Telephone encounter Deacon shahid MD Work Phone: Endocrinology BMI Comment on above: Patient Question; Pa tient Update Start: 01-14-2023 End: 01-15-2023 ambulatory Vic Ramos MD Work Phone: Pain Management Comment on above: Waitlist Start: 01-13-2023 End: 01-13-2023 Emergency department patient visit NO ASSIGNED PCP GENERIC PROVIDER [facility] Start: 01-11-2023 Orders Only Vic Conner am, MD Work Phone: Pain Management Comment on above: Chronic pain syndrom e (Primary Dx) Pain Management Proc edure missed call Start: 01-08-2023 End: 01-08-2023 ambulatory JAQUAN L CRISTHIAN Facility:[facility] Start: 01-08-2023 End: 01-08-2023 ambulatory Vic Ramos MD Work Phone: Pain Management Comment on above: 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); Neuralgia and neuritis Start: 01-08-2023 End: 01-08-2023 Telemedicine consultation with patient Vic Ramos MD Work Phone: [facility] Start: 01-06-2023 Telephone encounter Vic saldana MD Work Phone: Pain Management Comment on above: Appointment Start: 12-31-2022 End: 12-31-2022 Emergency department patient visit Mateusz Garcia Facility[facility] Start: 12-31-2022 End: 12-31-2022 Emergency department patient visit Mateusz Garcia [facility] Start: 12-29-2022 End: 12-30-2022 ambulatory MONTESSORI PROGRAM DIRECTOR Jaquan L Cristhian Facility:[facility] Start: 12-28-2022 Telephone encounter Deacon shahid MD Work Phone: General Surgery Comment on above: Patient Update; Orde rs Start: 12-21-2022 End: 12-21-2022 ambulatory [facility] Start: 12-14-2022 End: 12-14-2022 ambulatory Deacon Kat MD Work Phone: Endocrinology BMI Comment on above: Worsening Symptoms S evere Abdominal pain, unsp ecified abdominal location (Primary Dx) Start: 12-14-2022 End: 12-15-2022 Emergency department patient visit JAQUAN MORROW [facility] Start: 12-14-2022 End: 12-14-2022 Telemedicine consultation with patient Deacon Kat MD Work Phone: [facility] Start: 12-09-2022 ambulatory MONTESSORI PROGRAM DIRECTOR Jaquan L Cristhian Facil ity: [facility] Start: 12-06-2022 End: 12-09-2022 Evaluation and management of inpatient JAQUAN L CRISTHIAN Facility:[facility] Start: 12-04-2022 End: 12-05-2022 ambulatory AGUSTIN ZAMORANO Facility:[facility] Start: 12-04-2022 End: 12-04-2022 Patient encounter procedure Agustin Zamorano MD Work Phone: General Surgery Comment on above: Generalized abdomina l pain (Primary Dx) Start: 12-03-2022 Telephone encounter Oliva Dobbs RN General Surgery Start: 12-01-2022 End: 12-02-2022 ambulatory MD Lokesh Terry Facility:[facility] Start: 12-01-2022 Telephone encounter Deacon shahid MD Work Phone: Endocrinology BMI Comment on above: Patient Update Start: 11-27-2022 End: 12-03-2022 Evaluation and management of inpatient CAMDEN GOODRICH [facility] Start: 11-26-2022 ambulatory DEACON KAT Facilit y:[facility] Start: 11-26-2022 End: 11-26-2022 Subsequent hospital visit by physician Jing/ [facility] Work Phone: CARDIOVASCULAR TESTING Comment on above: Chronic nausea [R11. 0] Start: 11-26-2022 End: 11-26-2022 ambulatory JAQUAN CRISTHIAN Facility:[facility] Start: 11-25-2022 Tele[facility] Work Phone: Chronic Care Start: 11-25-2022 End: 11-26-2022 ambulatory MONTESSORI PROGRAM DIRECTOR Jaquan L Cristhian [facility] Start: 11-23-2022 Telephone encounter Deacon shahid MD Work Phone: Endocrinology BMI Comment on above: Patient Update Start: 11-22-2022 End: 11-23-2022 ambulatory JAQUAN CRISTHIAN [facility] Start: 11-17-2022 End: 11-18-2022 ambulatory Deacon Kat MD Work Phone: Endocrinology BMI Comment on above: On-Call Surgeon - Se nt to ER Start: 11-16-2022 End: 11-17-2022 Refill Deacon Kat MD Work Phone: Endocrinology BMI Start: 11-16-2022 End: 11-16-2022 Lab Drop off Jaquan L Cristhian [facility] Start: 11-14-2022 ambulatory Deacon sousa MD Work Phone: [facility] Start: 11-14-2022 Nutrition therapy Deacon turner MD Work Phone: Endocrinology BMI Comment on above: IV Nutrition Start: 11-13-2022 End: 11-13-2022 ambulatory PABLO HEADLEYLAND Facility:[facility] Start: 11-11-2022 End: 11-12-2022 ambulatory DEACON KAT Facility:[facility] Start: 11-10-2022 End: 11-10-2022 ambulatory JAQUAN L CRISTHIAN Facility:[facility] Start: 11-09-2022 Telephone encounter Deacon shahid MD Work Phone: Endocrinology BMI Comment on above: Surgery Rescheduled Start: 11-06-2022 ambulatory Agustin Sheets RT() [facility] Molecular Comment on above: Radiology NM Start: 11-06-2022 Patient encounter procedure Agustin Sheets RT() [facility] Start: 11-06-2022 Telephone encounter Deacon shahid MD Work Phone: Endocrinology BMI Comment on above: Patient Update Start: 11-05-2022 End: 11-08-2022 ambulatory ST[facility] Start: 11-04-2022 End: 11-04-2022 Patient encounter procedure Deacon Kat MD Work Phone: Endocrinology BMI Comment on above: Nausea (Primary Dx); RUQ pain; History of cholecystectomy Dehydration (Primary Dx); RUQ pain Right knee pain, uns pecified chronicity (Primary Dx) Start: 11-04-2022 End: 11-05-2022 ambulatory JAQUAN L CRISTHIAN Facility:[facility] Start: 11-04-2022 End: 11-04-2022 ambulatory Rheu Chair 5 Jeanne Work Phone: Infusion Start: 11-04-2022 End: 11-04-2022 ambulatory DEACON KAT Facility:[facility] Start: 11-04-2022 End: 11-04-2022 Subsequent hospital visit by physician Trudy [facility] Work Phone: [facility] Ultrasound Comment on above: Nausea [R11.0] Start: 11-03-2022 End: 11-04-2022 ambulatory MONTESSORI PROGRAM DIRECTOR Jaquan L Cristhian Facility:[facility] Start: 11-02-2022 Refill Haroon ahumada APRN.OBGYN HOSPITALIST PHYSICIAN Work Phone: Neurology Start: 11-02-2022 End: 11-02-2022 Emergency department patient visit DIMITRI WALKER [facility] Start: 11-02-2022 End: 11-02-2022 Emergency department patient visit Dimitri Walker MD Work Phone: [facility] Start: 11-01-2022 ambulatory Deacon sousa MD Work Phone: Endocrinology BMI Comment on above: Worsening Symptoms Problem Start: 10-31-2022 Refill Breanna Stern APRN.OBGYN HOSPITALIST PHYSICIAN Work Phone: General Surgery Comment on above: Refill Request Start: 10-31-2022 End: 10-31-2022 Emergency department patient visit [facility] Start: 10-31-2022 End: 10-31-2022 Emergency department patient visit Jalyn Galvan Demetrice VALENZUELA Work Phone: [facility] ED Comment on above: Back strain, initial encounter (Primary Dx) Start: 10-29-2022 End: 11-30-2022 ambulatory MONTESSORI PROGRAM DIRECTOR Jaquan L Cristhian Facility:[id number] Start: 10-27-2022 End: 10-27-2022 ambulatory KEESHA SNIDER [facility] Start: 10-26-2022 End: 10-27-2022 ambulatory MONTESSORI PROGRAM DIRECTOR Jaquan L Cristhian Facility[facility] Start: 10-25-2022 End: 10-28-2022 ambulatory RAYNA COYLE [facility] Start: 10-24-2022 ambulatory Deacon sousa MD Work Phone: Endocrinology BMI Comment on above: Symptoms Start: 10-23-2022 End: 10-23-2022 Emergency department patient visit [facility] Start: 10-21-2022 End: 10-22-2022 ambulatory MONTESSORI PROGRAM DIRECTOR Jaquan L Cristhian Facility[facility] Start: 10-21-2022 End: 10-21-2022 Emergency department patient visit [facility] Facility:[facility] Start: 10-20-2022 Telephone encounter Deacon shahid MD Work Phone: General Surgery Comment on above: Patient Question; Na usea & Vomiting Start: 10-20-2022 End: 10-20-2022 Emergency department patient visit Earnest Jett Facility:[facility] Start: 10-20-2022 End: 10-20-2022 Emergency department patient visit Earnest Jett [facility] Start: 10-19-2022 ambulatory Breanna Stern APRN.CNP Work Phone: General Surgery Comment on above: Worsening Symptoms Start: 10-19-2022 End: 10-19-2022 Emergency department patient visit Earnest Jett Facility:[facility] Start: 10-19-2022 End: 10-19-2022 Emergency department patient visit Earnest Jett [facility] Start: 10-18-2022 Emergency department patient visit [facility] Facility:[facility] Start: 10-17-2022 End: 10-17-2022 Emergency department patient visit WALLY Lesia [facility] Start: 10-15-2022 Refill Kasie Avalos MD Work Phone: Gastroenterology Comment on above: Refill Request Start: 10-07-2022 End: 10-08-2022 ambulatory MONTESSORI PROGRAM DIRECTOR [facility] Facility:[facility] Afsane[facility] suarez Start: 10-05-2022 End: 10-05-2022 [facility] Pablo Lebron PSYD Work Phone: Neurology Comment on above: ARSALAN (generalized anx iety disorder) (Primary Dx); Panic disorder without agoraphobia; Moderate recurrent major depression (HCC) Start: 09-28-2022 End: 09-28-[address] Work Phone: Endocrinology BMI Comment on above: Postoperative malabs orption (Primary Dx); S/P gastric bypass; Overweight (BMI 25.0-29.9); Dietary counseling and surveillance Start: 09-28-2022 End: 09-28-2022 Telemedicine consultation with patient Xiomara Martinez RD Work Phone: [facility] Start: 09-22-2022 End: 09-22-2022 ambulatory JAQUAN L CRISTHIAN Facility:[facility] Start: 09-21-2022 End: 09-21-2022 [facility] Pablo Lebron ROSALBA Work Phone: Neurology Comment on above: ARSALAN (generalized anx iety disorder) (Primary Dx); Panic disorder without agoraphobia; Moderate recurrent major depression (HCC) Start: 09-18-2022 End: 09-18-2022 ambulatory JAQUAN L CRISTHIAN Facility:[facility] Start: 09-18-2022 End: 09-18-2022 Patient encounter procedure Breanna Stern APRN.CNP Work Phone: General Surgery Comment on above: Encounter for surgic al aftercare following surgery of digestive system (Primary Dx); Impaired intestinal absorption; Esophageal dysphagia; Gastroesophageal reflux disease, unspecified whether esophagitis present; S/P bariatric surgery Start: 08-06-2022 ambulatory Kasie Avalos MD Work Phone: Gastroenterology Comment on above: Medication Coverage Start: 07-29-2022 End: 07-30-2022 ambulatory Rajni Rouse Facility:[facility] Start: 07-29-2022 End: 07-29-2022 Patient encounter procedure Rajni Rouse [facility] Start: 07-28-2022 End: 07-29-2022 ambulatory JAQUAN L CRISTHIAN Facility:[facility] Start: 07-28-2022 End: 07-28-2022 Patient encounter procedure Bernardo Brenner MD Work Phone: Dermatology Comment on above: Rash and nonspecific skin eruption (Primary Dx); Pain in eye, unspecified laterality; Facial edema Start: 07-27-[address] WALLY FOLEY . Facil ity:[facility] Start: 07-23-2022 Telephone encounter Kasie jean MD Work Phone: Gastroenterology Comment on above: Medication Problem ( Motegrity ) Start: 07-22-2022 End: 07-22-2022 ambulatory JAQUAN L CRISTHIAN Facility:[facility] Start: 07-22-2022 End: 07-22-2022 Patient encounter procedure [facility] Work Phone: Ophthalmology Comment on above: Vernal conjunctiviti s of both eyes (Primary Dx) Start: 07-22-2022 Refill Kasie Avalos MD Work Phone: Gastroenterology Comment on above: Med Change Request Start: 07-22-2022 End: 07-22-2022 Emergency department patient visit SERENA BREEN Facility:[facility] Start: 07-22-2022 End: 07-23-2022 ambulatory KASIE AVALOS Facility:[facility] Start: 07-22-2022 End: 07-22-2022 Patient encounter procedure Kasie Avalos MD Work Phone: Gastroenterology Comment on above: Constipation, unspec ified constipation type (Primary Dx); Nausea; Rash of face; Enlarged lymph nodes Start: 07-20-2022 End: 07-21-2022 ambulatory MONTESSORI PROGRAM DIRECTOR Jaquan L Cristhian Facility[place] Start: 07-20-2022 End: 07-20-2022 Lab Drop off Jaquan L Cristhian [facility] Start: 06-30-2022 ambulatory MONTESSORI PROGRAM DIRECTOR Jaquan Cristhian Facilit y:JENNIFER Edmondson Start: 06-26-2022 End: 06-27-2022 ambulatory MONTESSORI PROGRAM DIRECTOR Jaquan L Cristhian Facility:[facility] Afsaneh suarez Start: 06-23-2022 End: 06-23-2022 Evaluation and management of inpatient LEIAS CROSS ALLAREDDY Facility:[facility] Start: 06-20-2022 End: 06-24-2022 Evaluation and management of inpatient ELIAS CROSS ALLAREDDY Facility:[facility] Start: 06-18-2022 End: 06-18-2022 ambulatory JAQUAN L CRISTHIAN Facility:[facility] Start: 06-18-2022 End: 06-18-2022 ambulatory Ciara Humphreyritchie GABRIELLA Work Phone: [facility] Comment on above: Encounter to discuss test results (Primary Dx); NO SHOW Start: 06-18-2022 End: 06-18-2022 Telemedicine consultation with patient Ciara Bello GABRIELLA Work Phone: [facility] Start: 06-17-2022 End: 06-18-2022 ambulatory MONTESSORI PROGRAM DIRECTOR Jaquan Morrow Facility:[facility] Afsaneh suarez Start: 06-16-2022 End: 06-16-2022 Emergency department patient visit CORIE Hai GONZALEZ Facility:[facility] Start: 06-12-2022 End: 06-13-2022 ambulatory CIARA BELLO Facility:[facility] Start: 06-12-2022 End: 06-12-2022 Patient encounter procedure Ciara Bello GABRIELLA Work Phone: [facility] Comment on above: Polyarthralgia (Prim reji Dx); Malaise and fatigue; Subjective fever; S/P laparoscopic sleeve gastrectomy; History of syncope; History of adrenal insufficiency; Hypothyroidism, unspecified type Start: 06-11-2022 End: 07-24-2022 Pre-admission assessment Rui Joyner [facility] Start: 06-10-2022 End: 06-10-2022 Emergency department patient visit Ashutosh Albright Facility:[facility] Start: 06-10-2022 End: 06-11-2022 ambulatory MONTESSORI PROGRAM DIRECTOR Jaquan L Cristhian Facility: [facility] Start: 06-10-2022 End: 06-10-2022 [facility] Start: 06-09-2022 End: 06-09-[address] DOCTOR CARRERA Facility: Start: 06-07-2022 End: 06-07-2022 Emergency department patient visit Ashutosh Albright Facility:[facility] Start: 06-05-2022 End: 06-06-2022 ambulatory MONTESSORI PROGRAM DIRECTOR Jaquan L Cristhian Facility:[facility] Laurel erick Start: 05-27-2022 End: 05-28-2022 ambulatory MONTESSORI PROGRAM DIRECTOR Jaquan L Cristhian Facility:[facility] Laurel erick Start: 05-22-2022 End: 05-23-[address] WALLY FOLEY . Facility: Start: 05-05-2022 End: 05-06-2022 ambulatory MONTESSORI PROGRAM DIRECTOR Jaquan L Cristhian Facility:[facility] Laurel erick Start: 04-21-2022 ambulatory MONTESSORI PROGRAM DIRECTOR Jaquan Cristhian Facilit y:[facility] Debo Start: 03-30-2022 ambulatory Breanna Stern APRN.OBGYN HOSPITALIST PHYSICIAN Work Phone: [facility] Start: 03-30-2022 Patient encounter procedure Breanna Stern APRN.OBGYN HOSPITALIST PHYSICIAN Work Phone: General Surgery Comment on above: Cancel Appointment C annot Reach Anyone Start: 03-24-2022 ambulatory RYLEE THACKER Facility: [facility] Start: 03-06-2022 ambulatory WALLY FOLEY Facil ity:[facility] Start: 03-06-2022 End: 03-06-2022 Subsequent hospital visit by physician Deacon Kat MD Work Phone: [facility] Endoscopy - ENDO Comment on above: Esophageal dysphagia [R13.19] Start: 03-05-2022 Telephone encounter Li márquez RN Work Phone: Endocrinology BMI Comment on above: EGD Instructions Start: 03-05-2022 End: 03-05-2022 ambulatory DEACON KAT Facility:[facility] Start: 03-05-2022 End: 03-05-2022 ambulatory Breanna Stern APRN.OBGYN HOSPITALIST PHYSICIAN Work Phone: General Surgery Comment on above: Esophageal dysphagia (Primary Dx); S/P gastric bypass; Postoperative malabsorption Start: 03-05-2022 End: 03-05-2022 Telemedicine consultation with patient Breanna Stern ROVING WEIGHT GAUGER.OBGYN HOSPITALIST PHYSICIAN Work Phone: [facility] Start: 03-02-2022 End: 03-03-[address] WALLY FOLEY . Facility: Start: 02-17-2022 End: 02-18-[address] WALLY FOLEY . Facility: Start: 02-13-2022 End: 02-13-2022 Patient encounter procedure Kuldip Yousif MD Work Phone: [facility] Comment on above: Acetabular labrum te ar, right, subsequent encounter (Primary Dx) Start: 02-05-2022 Orders Only Deacon sousa MD Work Phone: Endocrinology BMI Comment on above: Postoperative pain Start: 02-04-2022 ambulatory Deacon sousa MD Work Phone: [facility] Start: 02-04-2022 Follow-up encounter Deacon shahid MD Work Phone: Endocrinology BMI Comment on above: Surgery Follow-Up Start: 02-04-2022 End: 02-04-2022 Admission to same day surgery center Nahed Carito Dashawn GARLAND Work Phone: Nutrition Therapy Comment on above: S/P gastric surgery (Primary Dx); Dietary counseling Start: 02-04-2022 End: 02-04-2022 Telemedicine consultation with patient Nahed Acevedoleonel GARLAND Work Phone: [facility] Start: 02-03-2022 End: 02-03-2022 Patient encounter procedure Breanna Stern [employer]ING WE[employer] GAUGER.OBGYN HOSPITALIST PHYSICIAN Work Phone: General Surgery Comment on above: S/P bariatric surger y (Primary Dx); Postoperative pain; Primary osteoarthritis involving multiple joints Start: 02-02-2022 Telephone encounter Deacon shahid MD Work Phone: General Surgery Comment on above: Medication Question Start: 01-31-2022 ambulatory Deacon sousa MD Work Phone: Endocrinology BMI Comment on above: Home prescription qu estion Start: 01-29-2022 End: 01-30-2022 ambulatory SHANNA JUNE Facility:[facility] Start: 01-28-2022 Encounter for other preprocedural examination DEACON KAT [facility] Start: 01-28-2022 End: 01-29-2022 ambulatory IOANA HOGAN Facility:[facility] Start: 01-28-2022 End: 01-28-2022 Admission to establishment Pacc Av 2 Work Phone: [facility] Start: 01-28-2022 End: 01-28-2022 ambulatory Pac 2 Work Phone: Pre Anesthesia Comment on above: Pre-op evaluation (P rimary Dx); Benign essential HTN; RICHAR on CPAP; Mild intermittent asthma without complication; Anemia, unspecified type; Class 1 obesity without serious comorbidity with body mass index (BMI) of 33.0 to 33.9 in adult, unspecified obesity type Start: 01-28-2022 End: 01-28-2022 Preprocedural examination done Pac 2 Work Phone: Pre Anesthesia Start: 01-20-2022 Telephone encounter Li márquez RN Work Phone: Endocrinology BMI Comment on above: Surgery Date Start: 01-06-2022 Telephone encounter Li márquez RN Work Phone: Endocrinology BMI Comment on above: Schedule Surgery (La p. GJ revision) Start: 01-02-2022 End: 01-02-2022 [facility] Sabina Joy APRN.OBGYN HOSPITALIST PHYSICIAN Work Phone: General Surgery Comment on above: Gastroesophageal ref lux disease with esophagitis without hemorrhage (Primary Dx); RICHAR (obstructive sleep apnea); Class 1 obesity with serious comorbidity and body mass index (BMI) of 33.0 to 33.9 in adult, unspecified obesity type; S/P laparoscopic sleeve gastrectomy; Weight disorder Start: 01-01-2022 End: 01-01-2022 Nursing evaluation of patient and report Nurse Gi Lab 2 Work Phone: Gastroenterology Comment on above: Gastroesophageal ref lux disease, unspecified whether esophagitis present (Primary Dx) Start: 12-25-2021 ambulatory Deacon sousa MD Work Phone: Endocrinology BMI Comment on above: Revision Question Start: 12-25-2021 Chart abstracting Mateusz Cooley cody Research Coordinator Gastroenterology Comment on above: Informed Consent (IR B [id number]/) Start: 12-25-2021 End: 12-25-2021 Nursing evaluation of patient and report Nurse Gi Lab 2 Work Phone: Gastroenterology Comment on above: Regurgitation of herb d; Gastroesophageal reflux disease, unspecified whether esophagitis present Start: 12-25-2021 End: 12-25-2021 Subsequent hospital visit by physician Britt Cross MD Work Phone: Gastroenterology Comment on above: Gastroesophageal ref lux disease without esophagitis [K21.9] Start: 12-17-2021 Patient Update Deacon sousa MD Work Phone: Endocrinology BMI Comment on above: Orders (Corrected EG D & Huerta orders) Start: 11-19-2021 Patient Msg Li Kimball RN Work Phone: Endocrinology BMI Comment on above: Testing ordered by Du Kat Start: 11-18-2021 Patient Update Breanna Stern APRN.OBGYN HOSPITALIST PHYSICIAN Work Phone: Endocrinology BMI Comment on above: Orders (pH Impedence ) Start: 11-17-2021 End: 11-17-2021 Telemedicine consultation with patient Deacon Kat MD Work Phone: [facility] Start: 11-17-2021 End: 11-17-2021 ambulatory Deacon Kat MD Work Phone: Endocrinology BMI Comment on above: Gastroesophageal ref lux disease without esophagitis (Primary Dx) Refill Request; Refi ll Request Start: 10-27-2021 End: 10-28-[address] WALLY FOLEY . Facility: Start: 10-21-2021 Telephone encounter Kuldip mckeon MD Work Phone: [facility] [place] Comment on above: Appointment Start: 10-09-2021 End: 10-09-2021 [facility] Sabina Joy APRN.OBGYN HOSPITALIST PHYSICIAN Work Phone: General Surgery Comment on above: Gastroesophageal ref lux disease, unspecified whether esophagitis present (Primary Dx); Bariatric surgery status; Weight disorder; Class 1 obesity with serious comorbidity and body mass index (BMI) of 31.0 to 31.9 in adult, unspecified obesity type; S/P laparoscopic sleeve gastrectomy; Dietary counseling and surveillance Start: 10-08-2021 ambulatory Kuldip Yousif MD Work Phone: [facility] Start: 10-08-2021 Patient encounter procedure Kuldip Yousif MD Work Phone: [facility] Comment on above: Appointment Time Tod ay Start: 10-04-2021 End: 10-05-[address] WALLY FOLEY . Facility: Start: 08-30-2021 End: 08-30-2021 Emergency department patient visit Pablo Atwood Work Phone: [facility] Comment on above: Dental infection (Pr imary Dx) Start: 08-29-2021 End: 08-29-2021 ambulatory Justine Shabazz PA-C Work Phone: [facility][Note 3] Comment on above: Tear of right acetab ular labrum, subsequent encounter (Primary Dx) Start: 08-29-2021 End: 08-29-2021 Telemedicine consultation with patient Justine L Mele PA-C Work Phone: [facility] [address] Start: 08-28-2021 Refill Justine ardon PA-C Work Phone: [facility][Note 3] Comment on above: Refill Request Start: 08-28-2021 End: 08-28-[address] Work Phone: General Surgery Comment on above: S/P laparoscopic sle dee dee gastrectomy (Primary Dx); Obesity, Class I, BMI 30-34.9; Dietary counseling and surveillance Start: 08-28-2021 End: 08-28-2021 Telemedicine consultation with patient Xiomara Martinez RD Work Phone: [facility] Start: 08-25-2021 Encounter for genera l adult medical examination without abnormal findings SHANNA GRANADOSAULT [facility] Start: 08-24-2021 ambulatory Deacon sousa MD Work Phone: Endocrinology BMI Comment on above: Possible Revision Di scussion Start: 08-22-2021 End: 08-22-2021 Refill Kasie Avalos MD Work Phone: Gastroenterology Comment on above: Refill Request Start: 08-22-2021 Telephone encounter Shanna Cooper neva [facility] Start: 08-21-2021 End: 08-22-2021 Encounter for general adult medical examination without abnormal findings DR WALLY FOLEY . Facility:[facility] Start: 08-21-2021 End: 08-22-[address] WALLY FOLEY . Facility:[facility] Start: 08-19-2021 End: 08-20-[address] WALLY FOLEY . Facility:[facility] Start: 08-17-2021 End: 08-17-2021 ambulatory Shanna Slade Other [employer] Other Start: 08-17-2021 Office outpatient vi sit 15 minutes Shanna June [facility] Start: 08-14-2021 Refill Justine ardon PA-C Work Phone: [facility][Note 3] Comment on above: Refill Request Start: 08-01-2021 End: 08-01-2021 ambulatory Justinerodolfo Shabazz PA-C Work Phone: [facility][Note 3] Comment on above: Tear of right acetab ular labrum, subsequent encounter (Primary Dx) Start: 08-01-2021 End: 08-01-2021 Telemedicine consultation with patient Justine Alex Shabazz PA-C Work Phone: [facility] [address] Start: 07-30-2021 End: 07-30-[address] KIERSTEN MORENO . Facility:[facility] Start: 07-28-2021 ambulatory Justine Caceres ac PA-C Work Phone: [facility] [address] Start: 07-28-2021 Patient encounter procedure Justine Shabazz PA-C Work Phone: [facility][Note 3] Comment on above: Virtual Appointment Start: 07-27-2021 End: 07-27-2021 Emergency department patient visit Angela Do MD Work Phone: [facility] Comment on above: Generalized abdomina l pain (Primary Dx) Start: 07-14-2021 ambulatory Justine Caceres ac PA-C Work Phone: [facility][Note 3] Comment on above: Medication Start: 07-11-2021 End: 08-26-[address] DOCTOR CARRERA Facility:[facility] Start: 07-04-2021 End: 07-04-2021 ambulatory Justine Johnsonc PA-C Work Phone: [facility][Note 3] Comment on above: Tear of right acetab ular labrum, subsequent encounter (Primary Dx) Start: 07-04-2021 End: 07-04-2021 Telemedicine consultation with patient Justine Johnsonc PA-C Work Phone: [facility] [address] Start: 06-23-2021 Admission to [facility] surgery center Jace Duarte AT Work Phone: [facility][Note 3] Comment on above: Schedule Surgery Start: 06-23-2021 ambulatory Jace solomon AT Work Phone: [facility] [address] Start: 06-18-2021 End: 06-18-2021 Patient encounter procedure Kuldip Yousif MD Work Phone: [facility] Comment on above: Acetabular labrum te ar, right, initial encounter (Primary Dx) Start: 06-02-2021 ambulatory LUCIE MORA Faci lity:[facility] Start: 06-02-2021 End: 06-02-2021 Office outpatient visit 15 minutes Lucie Mora MD Work Phone: [facility] Comment on above: 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) Start: 04-02-2021 End: 04-02-2021 ambulatory Shanna June Other [employer] Other Start: 04-02-2021 Telephone encounter Shanna hooks [facility] Start: 03-31-2021 End: 03-31-2021 ambulatory Shanna June Other [employer] Other Start: 03-31-2021 Office outpatient vi sit 15 minutes Shanan June [facility] Start: 03-10-2021 End: 03-10-2021 ambulatory Shanna June Other [employer] Other Start: 03-10-2021 Telephone encounter Shanna hooks [facility] Start: 01-28-2021 End: 01-28-2021 ambulatory Shanna June Other [employer] Other Start: 01-28-2021 Office outpatient vi sit 15 minutes Shanna June [facility] Start: 12-17-2020 End: 12-17-2020 ambulatory Shanna June Other [employer] Other Start: 12-17-2020 Encounter for genera l adult medical examination without abnormal findings Shanna June [facility] Start: 12-17-2020 Periodic preventive med est patient 18-39 yrs Shanna June [facility] Start: 12-14-2020 End: 12-14-2020 Emergency department patient visit Shanna June [employer] GAUGER - [employer] PLANS OFFICER Work Phone: [facility] Comment on above: Contusion of right t humb without damage to nail, initial encounter (Primary Dx) Start: 12-09-2020 ambulatory LUCIE Foster lity:[facility] Start: 07-02-2020 End: 07-02-2020 Emergency department patient visit Vaughn Ceja MD Work Phone: [facility] Start: 01-30-2020 End: 01-30-2020 Emergency department patient visit Agustin Gustafson Work Phone: [facility] Start: 09-25-2019 Preprocedural examination done Kuldip Yousif MD Work Phone: [facility] Work Phone: Start: 09-10-2017 End: 09-11-2017 Patient encounter DEFAULT PHYSICIAN Facility:[facility] Procedures Date Procedure Procedure Detail Performing Clinician Start: 02-13-2023 Computed tomography of abdomen and pelvis with contrast PAO Morrow Work Phone: Start: 02-12-2023 CBC W Auto Differential panel - Blood NO GENERIC PROVIDER Start: 02-12-2023 Comprehensive metabolic 2000 panel - Serum or Plasma NO GENERIC PROVIDER Start: 02-12-2023 Lactate [Moles/volume] in Serum or Plasma NO GENERIC PROVIDER Start: 02-12-2023 Lipase [Enzymatic activity/volume] in Serum or Plasma NO GENERIC PROVIDER Start: 02-12-2023 URINALYSIS WITH REFLEX MICROSCOPIC NO GENERIC PROVIDER Start: 01-14-2023 ECG 12-LEAD [place] Start: 01-14-2023 VASC US MESENTERIC ARTERY DUPLEX COMPLETE [place] Start: 01-14-2023 Follow-up visit Follow-up JERAD MAGAÑA Start: 01-13-2023 HCG, URINE, QUALITATIVE [place] Start: 01-13-2023 URINALYSIS WITH REFLEX MICROSCOPIC [place] Start: 01-13-2023 CBC W Auto Differential panel - Blood [place] Start: 01-13-2023 Comprehensive metabolic 2000 panel - Serum or Plasma [place] Start: 11-26-2022 Dup-scan artl tiara abdl/pel/scrot&/rpr orgn com Deacon Kat MD Work Phone: Start: 11-11-2022 Antibody screen WALLY FOLEY Comment on above: Order Comment: Specimen Type: BLOOD SPEC IMENOrdering Facility: [facility] Address: [address] [id number] Performed By: #### T SCR ####[place] BLOOD [facility] [id number] [place] [address] [place] Start: 11-11-2022 Ercp dx collection specimen brushing/washing Jaquan Morrow Start: 11-11-2022 Laps abd prtm&omentum dx w/wo spec br/wa spx Jaquan Morrow Start: 11-04-2022 Us abdominal real time w/image limited Deacon Kat MD Work Phone: Start: 11-02-2022 Urinalysis, reagent strip without microscopy Dimitri Walker MD Work Phone: Start: 11-02-2022 Complete blood count with white cell differential, automated Dimitri Walker MD Work Phone: Start: 11-02-2022 End: 11-02-2022 Comprehensive metabolic panel Dimitri Walker MD Work Phone: Start: 10-31-2022 Urinalysis microscopic only Jalyn J Iq bal DO Work Phone: Start: 10-31-2022 Urnls dip stick/tablet rgnt auto w/o microscopy Jalyn J Suresh DO Work Phone: Start: 10-31-2022 Radex spine lumbosacral minimum 4 views Jalyn J Suresh DO Work Phone: Start: 10-31-2022 Comprehensive metabolic panel Jalyn J Suresh DO Work Phone: Start: 10-27-2022 Esophagogastroduodenoscopy transoral diagnostic Jaquan Morrow Start: 06-24-2022 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 Breanna Stern [employer]ING WEIGHT GAUGER.OBGYN HOSPITALIST PHYSICIAN Work Phone: Start: 03-06-2022 Esophagoscp rig transoral hypopharynx crv esoph Breanna Stern [employer]OVING WEIGHT GAUGER.OBGYN HOSPITALIST PHYSICIAN Work Phone: Start: 01-29-2022 Revision - value (qualifier value) Ashutosh Albright Comment on above: gastric sleeve revision Start: 01-28-2022 Antibody screen DEACON KAT Comment on above: Order Comment: Specimen Type: BLOOD SPEC IMENOrdering Facility: [facility] Address: [place] [address] Performed By: #### T [id number] ####[facility]ILIA BLOOD [facility] [id number] [place] [address] [facility] Start: 01-28-2022 Antibody screen Pacc 2 Work Phone: Start: 01-28-2022 Ecg routine ecg w/least 12 lds trcg only w/o i&r [facility] Provider Start: 12-25-2021 Esophagoscp rig transoral hypopharynx crv esoph Deacon Kat MD Work Phone: Start: 08-30-2021 NERVE BLOCK Pablo Atwood DO Work Phone: Start: 07-27-2021 Ct abdomen & pelvis w/contrast material Angela Do MD Work Phone: Start: 07-27-2021 Assay of lactate Angela Do MD Work Phone: Start: 07-27-2021 Radiologic exam chest single view Jesse Do MD Work Phone: Start: 07-27-2021 Urinalysis microscopic only Angela keyes MD Work Phone: Start: 07-27-2021 Urnls dip stick/tablet rgnt auto w/o microscopy Angela Do MD Work Phone: Start: 02-15-2021 Gastric sleeve Ashutosh Albright Comment on above: Date is not exact Start: 01-20-2021 Esophagogastroduodenoscopy Ashutosh Rivera i Start: 12-14-2020 Radex fingr minimum 2 views Vicky Olmedo MD Work Phone: Start: 11-04-2020 Hysterectomy Ashutosh Albright Start: 05-18-2021 Us pelvic nonobstetric real-time image complete Juanito Hai Sisi GONZALEZC Work Phone: Start: 07-02-2020 Blood typing serologic abo Juanito Valles Gustavo INMAN-C Work Phone: Start: 07-02-2020 Complete blood count with white cell differential, automated Juanito Hai Sisi INMAN[facility]C Work Phone: Start: 07-02-2020 Comprehensive metabolic panel Juanito Valles Ofelia [facility] Work Phone: Start: 07-02-2020 Ct abdomen & pelvis w/o contrast material Juanito INMAN-C Work Phone: Start: 07-02-2020 Gonadotropin chorionic qualitative Vaughn Ceja MD Work Phone: Start: 07-02-2020 Urinalysis microscopic only Vaughn gay MD Work Phone: Start: 07-02-2020 Urinalysis, reagent strip without microscopy Vaughn Ceja MD Work Phone: Start: 01-30-2020 Computed tomography of abdomen and pelvis with contrast Agustin Gustafson Work Phone: Start: 01-30-2020 Albumin serum plasma/whole blood Agustin Kitchendamion Work Phone: Start: 01-30-2020 Assay of lipase Agustin Kitchendamion Work Phone: Start: 01-30-2020 Complete blood count with white cell differential, automated Agustin Gustafson Work Phone: Start: 01-30-2020 Creatinine blood Agustin Gustafson Work Phone: Start: 01-30-2020 Choriogonadotropin ( test) [Presence] in Urine Agustin Kitchendamion Work Phone: Start: 01-30-2020 Urinalysis, reagent strip without microscopy Agustin Gustafson Work Phone: Appendectomy Rajni Rouse Cholecystectomy Rajni Rouse Colonoscopy Rajni Rouse H/O: surgery S/P gastric surgery Nahed Tamez RD Work Phone: H/O: surgery Status post surgery Jaquan Baca ck History of cholecystectomy Histo ry of cholecystectomy Deacon Kat MD Work Phone: History of cholecystectomy Histo ry of cholecystectomy [facility] Work Phone: Plan of Treatment Date Care Activity Detail Author Start: 09-21-2026 DTaP/Tdap/Td vaccine (2 - Td or Tdap) DTaP/Tdap/Td vaccine (2 - Td or Tdap) [facility] Start: 09-21-2026 Tetanus vaccination [facility] Start: 09-21-2026 Urine microalbumin profile [facility] Start: 12-05-2023 BP Controlled (<130/80) BP Controlle d (<130/80) [facility] Start: 11-27-2023 BP Controlled (<130/80) BP Controlle d (<130/80) [facility] Start: 08-04-2023 ambulatory Ambulatory Facility:[facility] Start: 06-13-2023 BP CONTROLLED (<130/80) BP CONTROLLE D (<130/80) [facility] Start: 11-23-2022 End: 11-24-2023 US MESENTERIC ARTERY [facility]T [facility] US MESENTERIC ARTERY [facility] Vascular Lab [place] Chronic nausea RUQ pain Expected: 11/23/2022, Expires: 11/24/2023 [facility] Work Phone: Comment on above: Expected: 11/23/2022 , Expires: 11/24/2023 Start: 11-18-2022 End: 01-18-2023 25-hydroxyvitamin D3 [Mass/volume] in Serum or Plasma VITAMIN D 25 HYDROXY Lab Routine S/P bariatric surgery Impaired intestinal absorption Expected: 11/18/2022 (Approximate), Expires: 01/18/2023 [facility] Work Phone: Comment on above: Expected: 11/18/2022 (Approximate), Expires: 01/18/2023 Start: 11-18-2022 End: 01-18-2023 CBC panel - Blood by Automated count CBC Lab Routine S/P bariatric surgery Impaired intestinal absorption Expected: 11/18/2022 (Approximate), Expires: 01/18/2023 [facility] Work Phone: Comment on above: Expected: 11/18/2022 (Approximate), Expires: 01/18/2023 Start: 11-18-2022 End: 01-18-2023 Cobalamin (Vitamin B12) [Mass/volume] in Serum or Plasma VITAMIN B12 BLOOD Lab Routine S/P bariatric surgery Impaired intestinal absorption Expected: 11/18/2022 (Approximate), Expires: 01/18/2023 [facility] Work Phone: Comment on above: Expected: 11/18/2022 (Approximate), Expires: 01/18/2023 Start: 11-18-2022 End: 01-18-2023 Comprehensive metabolic 2000 panel - Serum or Plasma COMP METABOLIC PANEL Lab Routine S/P bariatric surgery Impaired intestinal absorption Expected: 11/18/2022 (Approximate), Expires: 01/18/2023 [facility] Work Phone: Comment on above: Expected: 11/18/2022 (Approximate), Expires: 01/18/2023 Start: 11-18-2022 End: 01-18-2023 Ferritin [Mass/volume] in Serum or Plasma FERRITIN BLD Lab Routine S/P bariatric surgery Impaired intestinal absorption Expected: 11/18/2022 (Approximate), Expires: 01/18/2023 [facility] Work Phone: Comment on above: Expected: 11/18/2022 (Approximate), Expires: 01/18/2023 Start: 11-18-2022 End: 01-18-2023 Folate [Mass/volume] in Serum or Plasma FOLATE SERUM Lab Routine S/P bariatric surgery Impaired intestinal absorption Expected: 11/18/2022 (Approximate), Expires: 01/18/2023 [facility] Work Phone: Comment on above: Expected: 11/18/2022 (Approximate), Expires: 01/18/2023 Start: 11-18-2022 End: 01-18-2023 Iron and Iron binding capacity panel - Serum or Plasma IRON + TIBC Lab Routine S/P bariatric surgery Impaired intestinal absorption Expected: 11/18/2022 (Approximate), Expires: 01/18/2023 [facility] Work Phone: Comment on above: Expected: 11/18/2022 (Approximate), Expires: 01/18/2023 Start: 11-18-2022 End: 01-18-2023 Parathyrin.intact [Mass/volume] in Serum or Plasma PTH INTACT BLD Lab Routine S/P bariatric surgery Impaired intestinal absorption Expected: 11/18/2022 (Approximate), Expires: 01/18/2023 [facility] Work Phone: Comment on above: Expected: 11/18/2022 (Approximate), Expires: 01/18/2023 Start: 11-18-2022 End: 01-18-2023 Retinol [Mass/volume] in Serum or Plasma VITAMIN A/RETINOL Lab Routine S/P bariatric surgery Impaired intestinal absorption Expected: 11/18/2022 (Approximate), Expires: 01/18/2023 [facility] Work Phone: Comment on above: Expected: 11/18/2022 (Approximate), Expires: 01/18/2023 Start: 11-18-2022 End: 01-18-2023 VITAMIN B1 (THIAMINE), WHOLE BLOOD VITAMIN B1 (THIAMINE), WHOLE BLOOD Lab Routine S/P bariatric surgery Impaired intestinal absorption Expected: 11/18/2022 (Approximate), Expires: 01/18/2023 [facility] Work Phone: Comment on above: Expected: 11/18/2022 (Approximate), Expires: 01/18/2023 Start: 11-18-2022 End: 01-18-2023 Zinc [Mass/volume] in Serum or Plasma ZINC BLD Lab Routine S/P bariatric surgery Impaired intestinal absorption Expected: 11/18/2022 (Approximate), Expires: 01/18/2023 [facility] Work Phone: Comment on above: Expected: 11/18/2022 (Approximate), Expires: 01/18/2023 Start: 11-04-2022 End: 01-04-2023 Amylase [Enzymatic activity/volume] in Serum or Plasma [facility] Work Phone: Comment on above: Expected: 11/04/2022 , Expires: 01/04/2023 Start: 11-04-2022 End: 01-04-2023 Lipase [Enzymatic activity/volume] in Serum or Plasma [facility] Work Phone: Comment on above: Expected: 11/04/2022 , Expires: 01/04/2023 Start: 10-16-2022 Covid-19 Vaccine () Covid-19 Vaccine () [facility] Start: 10-16-2022 Influenza vaccination [facility] Start: 09-15-2022 Influenza vaccination Flu vaccine (# 1) [facility] Start: 07-28-2022 End: 09-27-2022 CBC W Auto Differential panel - Blood CBC + DIFF Lab Routine Rash and nonspecific skin eruption Expected: 07/28/2022, Expires: 09/27/2022 [facility] Work Phone: Comment on above: Expected: 07/28/2022 , Expires: 09/27/2022 Start: 07-28-2022 End: 09-27-2022 Comprehensive metabolic 2000 panel - Serum or Plasma COMP METABOLIC PANEL Lab Routine Rash and nonspecific skin eruption Facial edema Expected: 07/28/2022, Expires: 09/27/2022 [facility] Work Phone: Comment on above: Expected: 07/28/2022 , Expires: 09/27/2022 Start: 06-12-2022 End: 08-12-2022 MISAEL BY IFA WITH REFLEX [facility] Work Phone: Comment on above: Expected: 06/12/2022 , Expires: 08/12/2022 Start: 06-12-2022 End: 08-12-2022 Borrelia burgdorferi IgG and IgM panel - Serum [facility] Work Phone: Comment on above: Expected: 06/12/2022 , Expires: 08/12/2022 Start: 06-12-2022 End: 08-12-2022 Cyclic citrullinated peptide IgG Ab [Units/volume] in Serum or Plasma [facility] Work Phone: Comment on above: Expected: 06/12/2022 , Expires: 08/12/2022 Start: 06-12-2022 End: 08-12-2022 MONOCLONAL PROTEIN, SERUM (BLOOD) [facility] Work Phone: Comment on above: Expected: 06/12/2022 , Expires: 08/12/2022 Start: 06-12-2022 End: 08-12-2022 Niacin [Mass/volume] in Serum or Plasma [facility] Work Phone: Comment on above: Expected: 06/12/2022 , Expires: 08/12/2022 Start: 06-12-2022 End: 08-12-2022 PROTEIN ELECTROPHORESIS SERUM W/INTERP [facility] Work Phone: Comment on above: Expected: 06/12/2022 , Expires: 08/12/2022 Start: 06-12-2022 End: 08-12-2022 Pyridoxine [Mass/volume] in Serum or Plasma [facility] Work Phone: Comment on above: Expected: 06/12/2022 , Expires: 08/12/2022 Start: 06-12-2022 End: 08-12-2022 VITAMIN B1 (THIAMINE), WHOLE BLOOD [facility] Work Phone: Comment on above: Expected: 06/12/2022 , Expires: 08/12/2022 Start: 05-03-2022 End: 07-03-2022 25-hydroxyvitamin D3 [Mass/volume] in Serum or Plasma VITAMIN D 25 HYDROXY Lab Routine S/P gastric bypass Postoperative malabsorption Expected: 05/03/2022 (Approximate), Expires: 07/03/2022 [facility] Work Phone: Comment on above: Expected: 05/03/2022 (Approximate), Expires: 07/03/2022 Start: 05-03-2022 End: 07-03-2022 CBC panel - Blood by Automated count CBC Lab Routine S/P gastric bypass Postoperative malabsorption Expected: 05/03/2022 (Approximate), Expires: 07/03/2022 [facility] Work Phone: Comment on above: Expected: 05/03/2022 (Approximate), Expires: 07/03/2022 Start: 05-03-2022 End: 07-03-2022 Cobalamin (Vitamin B12) [Mass/volume] in Serum or Plasma VITAMIN B12 BLOOD Lab Routine S/P gastric bypass Postoperative malabsorption Expected: 05/03/2022 (Approximate), Expires: 07/03/2022 [facility] Work Phone: Comment on above: Expected: 05/03/2022 (Approximate), Expires: 07/03/2022 Start: 05-03-2022 End: 07-03-2022 Comprehensive metabolic 2000 panel - Serum or Plasma COMP METABOLIC PANEL Lab Routine S/P gastric bypass Postoperative malabsorption Expected: 05/03/2022 (Approximate), Expires: 07/03/2022 [facility] Work Phone: Comment on above: Expected: 05/03/2022 (Approximate), Expires: 07/03/2022 Start: 05-03-2022 End: 07-03-2022 Ferritin [Mass/volume] in Serum or Plasma FERRITIN BLD Lab Routine S/P gastric bypass Postoperative malabsorption Expected: 05/03/2022 (Approximate), Expires: 07/03/2022 [facility] Work Phone: Comment on above: Expected: 05/03/2022 (Approximate), Expires: 07/03/2022 Start: 05-03-2022 End: 07-03-2022 Folate [Mass/volume] in Serum or Plasma FOLATE SERUM Lab Routine S/P gastric bypass Postoperative malabsorption Expected: 05/03/2022 (Approximate), Expires: 07/03/2022 [facility] Work Phone: Comment on above: Expected: 05/03/2022 (Approximate), Expires: 07/03/2022 Start: 05-03-2022 End: 07-03-2022 Iron and Iron binding capacity panel - Serum or Plasma IRON + TIBC Lab Routine S/P gastric bypass Postoperative malabsorption Expected: 05/03/2022 (Approximate), Expires: 07/03/2022 [facility] Work Phone: Comment on above: Expected: 05/03/2022 (Approximate), Expires: 07/03/2022 Start: 05-03-2022 End: 07-03-2022 Parathyrin.intact [Mass/volume] in Serum or Plasma PTH INTACT BLD Lab Routine S/P gastric bypass Postoperative malabsorption Expected: 05/03/2022 (Approximate), Expires: 07/03/2022 [facility] Work Phone: Comment on above: Expected: 05/03/2022 (Approximate), Expires: 07/03/2022 Start: 05-03-2022 End: 07-03-2022 Thyrotropin [Units/volume] in Serum or Plasma TSH BLD Lab Routine S/P gastric bypass Postoperative malabsorption Expected: 05/03/2022 (Approximate), Expires: 07/03/2022 [facility] Work Phone: Comment on above: Expected: 05/03/2022 (Approximate), Expires: 07/03/2022 Start: 05-03-2022 End: 07-03-2022 VITAMIN B1 (THIAMINE), WHOLE BLOOD VITAMIN B1 (THIAMINE), WHOLE BLOOD Lab Routine S/P gastric bypass Postoperative malabsorption Expected: 05/03/2022 (Approximate), Expires: 07/03/2022 [facility] Work Phone: Comment on above: Expected: 05/03/2022 (Approximate), Expires: 07/03/2022 Start: 12-25-2021 End: 12-17-2022 PH HUERTA INSERT OFF MEDS PH HUERTA INSERT OFF MEDS Endoscopy Routine Regurgitation of food Gastroesophageal reflux disease, unspecified whether esophagitis present Expected: 12/25/2021, Expires: 12/17/2022 [facility] Work Phone: Comment on above: Expected: 12/25/2021 , Expires: 12/17/2022 Start: 10-16-2021 Influenza vaccination C [facility] Start: 10-09-2021 End: 12-09-2021 25-hydroxyvitamin D3 [Mass/volume] in Serum or Plasma VITAMIN D 25 HYDROXY Lab Routine S/P laparoscopic sleeve gastrectomy Expected: 10/09/2021, Expires: 12/09/2021 [facility] Work Phone: Comment on above: Expected: 10/09/2021 , Expires: 12/09/2021 Start: 10-09-2021 End: 12-09-2021 Cobalamin (Vitamin B12) [Mass/volume] in Serum or Plasma VITAMIN B12 BLOOD Lab Routine S/P laparoscopic sleeve gastrectomy Expected: 10/09/2021, Expires: 12/09/2021 [facility] Work Phone: Comment on above: Expected: 10/09/2021 , Expires: 12/09/2021 Start: 10-09-2021 End: 12-09-2021 Ferritin [Mass/volume] in Serum or Plasma FERRITIN BLD Lab Routine S/P laparoscopic sleeve gastrectomy Expected: 10/09/2021, Expires: 12/09/2021 [facility] Work Phone: Comment on above: Expected: 10/09/2021 , Expires: 12/09/2021 Start: 10-09-2021 End: 12-09-2021 Folate [Mass/volume] in Serum or Plasma FOLATE SERUM Lab Routine S/P laparoscopic sleeve gastrectomy Expected: 10/09/2021, Expires: 12/09/2021 [facility] Work Phone: Comment on above: Expected: 10/09/2021 , Expires: 12/09/2021 Start: 10-09-2021 End: 12-09-2021 Hemoglobin A1c in Blood HGB A1C Lab Routine S/P laparoscopic sleeve gastrectomy Expected: 10/09/2021, Expires: 12/09/2021 [facility] Work Phone: Comment on above: Expected: 10/09/2021 , Expires: 12/09/2021 Start: 10-09-2021 End: 12-09-2021 Iron and Iron binding capacity panel - Serum or Plasma IRON + TIBC Lab Routine S/P laparoscopic sleeve gastrectomy Expected: 10/09/2021, Expires: 12/09/2021 [facility] Work Phone: Comment on above: Expected: 10/09/2021 , Expires: 12/09/2021 Start: 10-09-2021 End: 12-09-2021 Lipid 1996 panel - Serum or Plasma LIPID PANEL BASIC Lab Routine S/P laparoscopic sleeve gastrectomy Expected: 10/09/2021, Expires: 12/09/2021 [facility] Work Phone: Comment on above: Expected: 10/09/2021 , Expires: 12/09/2021 Start: 10-09-2021 End: 12-09-2021 Parathyrin.intact [Mass/volume] in Serum or Plasma PTH INTACT BLD Lab Routine S/P laparoscopic sleeve gastrectomy Expected: 10/09/2021, Expires: 12/09/2021 [facility] Work Phone: Comment on above: Expected: 10/09/2021 , Expires: 12/09/2021 Start: 10-09-2021 End: 12-09-2021 Thyrotropin [Units/volume] in Serum or Plasma TSH BLD Lab Routine S/P laparoscopic sleeve gastrectomy Expected: 10/09/2021, Expires: 12/09/2021 [facility] Work Phone: Comment on above: Expected: 10/09/2021 , Expires: 12/09/2021 Start: 10-09-2021 End: 12-09-2021 VITAMIN B1 (THIAMINE), WHOLE BLOOD VITAMIN B1 (THIAMINE), WHOLE BLOOD Lab Routine S/P laparoscopic sleeve gastrectomy Expected: 10/09/2021, Expires: 12/09/2021 [facility] Work Phone: Comment on above: Expected: 10/09/2021 , Expires: 12/09/2021 Start: 06-23-2021 End: 06-23-2021 Patient encounter procedure 06/23/2021 Office Visit Sports Medicine Belen Stovall MD [address] [place] [address] [facility] Start: 04-15-2021 COVID-19 VACCINE (3 - Booster for Woo series) COVID-19 VACCINE (3 - Booster for Woo series) [facility] Start: 10-16-2020 Influenza vaccination A [facility] Start: 10-17-2019 Influenza vaccination INFLUENZA VACC INE (#1) [facility] Start: 2019 HPV TESTING HPV TESTING [facility] Start: 2019 Screening for malign ant neoplasm of cervix [facility] [employer] Phone: Start: 2010 PAP TESTING PAP TESTING [facility] Start: 2010 Screening for malign ant neoplasm of cervix [facility] Start: 2008 DTaP/Tdap/Td vaccine (1 - Tdap) DTaP/Tdap/Td vaccine (1 - Tdap) [facility] [employer] Phone: Start: 2008 Third diphtheria, tetanus and acellular pertussis (DTaP) vaccination TDAP (ADULT) [facility] Start: 2008 Urine microalbumin profile DTAP,TDAP,TD (1 - Tdap) [facility] Start: 2007 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 Start: 2002 HIV screening HIV SCREENING DISCUSSI ON [facility] Start: 2001 COVID-19 VACCINE (1) COVID-19 VACCIN E (1) [facility] Start: 2001 Depression Screen Depression Screen [facility] Start: 1995 PNEUMOCOCCAL (1 - PCV) PNEUMOCOCCAL (1 - PCV) [facility] Start: 1995 Pneumococcal vaccination Pneum ococcal Vaccine (1 - PCV) [facility] Start: 1990 Varicella vaccine (1 of 2 - 2-dose childhood series) Varicella vaccine (1 of 2 - 2-dose childhood series) [facility] Start: 1989 HEPATITIS B (1 of 3 - 3-dose series) HEPATITIS B (1 of 3 - 3-dose series) [facility] Start: 1989 Hepatitis B Vaccine (1 of 3 - 3-dose series) Hepatitis B Vaccine (1 of 3 - 3-dose series) [facility] Start: 1989 Hepatitis C antibody , confirmatory test HEPATITIS C VIRUS SCREENING [facility] Start: 1989 Hepatitis C screening [facility] Start: 1989 Thyroid stimulating hormone measurement TSH [facility] Start: 1989 TSH Qn TSH [facility] End: 07-23-2023 ADULT [place] [employer] ADULT [place] [employer] Endoscopy Routine Constipation, unspecified constipation type 1 Occurrences starting 07/22/2022 until 07/23/2023 [facility] Work Phone: Comment on above: 1 Occurrences starti ng 07/22/2022 until 07/23/2023 End: 01-03-2024 Ct angio abd&plvis cntrst mtrl w/wo cntrst img CTA ABD/PEL W IVCON Radiology Routine Generalized abdominal pain 1 Occurrences starting 12/04/2022 until 01/03/2024 [facility] Work Phone: Comment on above: 1 Occurrences starti ng 12/04/2022 until 01/03/2024 End: 01-28-2023 ECG COMPLETE ECG COMPLETE ECG Routine Pre-op evaluation 1 Occurrences starting 01/28/2022 until 01/28/2023 [facility] Work Phone: Comment on above: 1 Occurrences starti ng 01/28/2022 until 01/28/2023 End: 11-17-2022 EGD - THERAPEUTIC, EUS, OR TUBE INTERVENTIONS EGD - THERAPEUTIC, EUS, OR TUBE INTERVENTIONS Endoscopy Routine Gastroesophageal reflux disease without esophagitis 1 Occurrences starting 11/17/2021 until 11/17/2022 [facility] Work Phone: Comment on above: 1 Occurrences starti ng 11/17/2021 until 11/17/2022 End: 03-05-2023 EGD - THERAPEUTIC, EUS, OR TUBE INTERVENTIONS EGD - THERAPEUTIC, EUS, OR TUBE INTERVENTIONS Endoscopy Routine Esophageal dysphagia S/P gastric bypass 1 Occurrences starting 03/05/2022 until 03/05/2023 [facility] Work Phone: Comment on above: 1 Occurrences starti ng 03/05/2022 until 03/05/2023 End: 10-09-2022 EGD BARIATRIC EGD BARIATRIC Endoscopy Routine Gastroesophageal reflux disease, unspecified whether esophagitis present Bariatric surgery status Class 1 obesity with serious comorbidity and body mass index (BMI) of 31.0 to 31.9 in adult, unspecified obesity type S/P laparoscopic sleeve gastrectomy 1 Occurrences starting 10/09/2021 until 10/09/2022 [facility] Work Phone: Comment on above: 1 Occurrences starti ng 10/09/2021 until 10/09/2022 End: 10-21-2023 EGD DIAGNOSTIC EGD DIAGNOSTIC Endoscopy Routine Epigastric pain 1 Occurrences starting 10/20/2022 until 10/21/2023 [facility] Work Phone: Comment on above: 1 Occurrences starti ng 10/20/2022 until 10/21/2023 End: 12-04-2023 Hepatobil syst imag inc gb w/pharma intervenj NM HEPATOBILIARY W EF AND/OR RX Radiology Routine Nausea RUQ pain History of cholecystectomy 1 Occurrences starting 11/04/2022 until 12/04/2023 [facility] Work Phone: Comment on above: 1 Occurrences starti ng 11/04/2022 until 12/04/2023 Injx anes celiac ple xus w/wo radiologic monitrng DIAG/THER NRV BLK CELIAC PLEXUS Procedures Routine Chronic pain syndrome Ordered: 01/11/2023 [facility] Work Phone: Comment on above: Ordered: 01/11/2023 Patient Education Abdominal Pain , Adult ED Nausea and Vomiting, Adult ED [facility] Work Phone: Patient referral [facility] Work Phone: End: 11-18-2022 PH IMPEDANCE INSERT OFF MEDS PH IMPEDANCE INSERT OFF MEDS Endoscopy Routine Gastroesophageal reflux disease without esophagitis S/P laparoscopic sleeve gastrectomy 1 Occurrences starting 11/19/2021 until 11/18/2022 [facility] Work Phone: Comment on above: 1 Occurrences starti ng 11/19/2021 until 11/18/2022 End: 10-18-2023 Radiologic exam upr gi trc double contrast study XR UPPER GI ROUTINE DOUBLE CONTRAST/AIR Radiology Routine S/P bariatric surgery Gastroesophageal reflux disease, unspecified whether esophagitis present 1 Occurrences starting 09/18/2022 until 10/18/2023 [facility] Work Phone: Comment on above: 1 Occurrences starti ng 09/18/2022 until 10/18/2023 SURGICAL PATHOLOGY [facility] Work Phone: Comment on above: Release Upon Eberin g for 1 Occurrences starting 12/25/2021, 1 completed End: 12-04-2023 US ABD RIGHT UPPER QUADRANT US ABD RIGHT UPPER QUADRANT Radiology Routine Nausea RUQ pain History of cholecystectomy 1 Occurrences starting 11/04/2022 until 12/04/2023 [facility] Work Phone: Comment on above: 1 Occurrences starti ng 11/04/2022 until 12/04/2023 US ABD RIGHT UPPER QUADRANT US ABD RIGHT UPPER QUADRANT Radiology Routine Nausea RUQ pain History of cholecystectomy 11/04/2022 11:15 AM EDT [facility] Work Phone: End: 12-04-2023 XR KNEE GENERAL 4V AP BOTH/PA BOTH/LAT/MERC RIGHT XR KNEE GENERAL 4V AP BOTH/PA BOTH/LAT/MERC RIGHT Radiology Routine Right knee pain, unspecified chronicity 1 Occurrences starting 11/04/2022 until 12/04/2023 [facility] Work Phone: Comment on above: 1 Occurrences starti ng 11/04/2022 until 12/04/2023 [facility] OR [facility] Immunizations Immunization Date Immunization Notes Care Provider [facility] 11-12-2022 influenza, injectabl e, quadrivalent, preservative free Deacon Kat MD Work Phone: [facility] 11-16-2021 influenza virus vaccine, unspecified formulation Ashutosh Albright [facility] 02-18-2021 SARS-CoV-2 (COVID-19 ) mRNA [id number] vax Ashutosh Albright [facility] Comment on above: Result Comment: 2022: TPVALL 01-01-2021 influenza virus vaccine, unspecified formulation Ashutosh Albright [facility] 01-01-2021 influenza, seasonal, injectable Kuldip Yousif MD Work Phone: [facility] 12-25-2020 influenza virus vaccine, unspecified formulation Ashutosh Albright [facility] 12-25-2020 influenza, injectabl e, quadrivalent, preservative free Kuldip Yousif MD Work Phone: [facility] 06-23-2020 COVID-19 Vaccine Woo - Documentation Purposes Only Shanna June Other [facility] Comment on above: Result Comment: 2022: TPVAL 11-28-2018 influenza, seasonal, injectable Shanna June Other [facility] 11-28-2018 influenza virus vaccine, unspecified formulation Agustin Gustafson [facility] 09-21-2016 tetanus toxoid, redu lauren diphtheria toxoid, and acellular pertussis vaccine, adsorbed Kuldip Yousif MD Work Phone: [facility] Payers Date Payer Category Payer Self-pay [id number] 2020 Private Health Insurance 1.2 .[id number]. 7.3.184696.315 2020 [facility] Health [facility] [id number] 2020-Present [phone] [address] [address] [place] [address] O [id number] 1.2.840.488242.1.13.159.2. 7.3.624138.315 2017 Unknown 2017 Unknown [employer] M [place] [id number] 2017-Present [id number] 1.2.840.873830.1.13.172.2. 7.3.234227.315 1989 Unknown [id number] 2.16.840.1.165756.3.579.2. 594 1989 Unknown [id number] 2.16.840.1.844773.3.579.2. 594 1989 Unknown [id number] 2.16.840.1.893960.3.579.2. 593 1989 Unknown [id number] 2.16.840.1.889370.3.579.2. 593 1989 Unknown [id number] 2.16.840.1.029562.3.579.2. 593 1989 Unknown [id number] 2.16.840.1.468719.3.579.2. 593 1989 Unknown [id number] 2.16.840.1.712546.3.579.2. 593 1989 Unknown [id number] 2.16.840.1.823143.3.579.2. 593 1989 Unknown [id number] 2.16.840.1.020756.3.579.2. 593 1989 Unknown [id number] 2.16.840.1.359163.3.579.2. 593 1989 Unknown [id number] 2.16.840.1.890954.3.579.2. 593 1989 Unknown [id number] 2.16.840.1.958553.3.579.2. 593 1989 Unknown [id number] 2.16.840.1.803580.3.579.2. 593 1989 Unknown [id number] 2.16.840.1.273781.3.579.2. 593 1989 Unknown [id number] 2.16.840.1.868004.3.579.2. 173 1989 Unknown [id number] 2.16.840.1.780773.3.579.2. 173 1989 Unknown [id number] 2.16.840.1.675135.3.579.2. 173 1989 Unknown [id number] 2.16.840.1.827264.3.579.2. 983 1989 Unknown [id number] 2.16.840.1.171941.3.579.2. 196 1989 Unknown [id number] 2.16.840.1.297467.3.579.2. 182 1989 Unknown [id number] 2.16.840.1.676177.3.579.2. 182 1989 Unknown [id number] 2.16.840.1.867689.3.579.2. 72 1989 Unknown [id number] 2.16.840.1.921536.3.579.2. 72 1989 Unknown [id number] 2.16.840.1.939534.3.579.2 1989 Unknown [id number] 2.16.840.1.193131.3.579.2 72 1989 Unknown [id number] 2.16.840.1.522586.3.579.2 1989 Unknown [id number] 2.16.840.1.474883.3.579.2 72 1989 Unknown [id number] 2.16.840.1.157690.3.579.2 72 1989 Unknown [id number] 2.16.840.1.942819.3.579.2. 72 1989 Unknown [id number] 2.16.840.1.077892.3.579.2 1989 Unknown [id number] 2.16.840.1.199005.3.579.2 72 1989 Unknown [id number] 2.16.840.1.848054.3.579.2 1989 Unknown [id number] 2.16.840.1.100589.3.579.2 1989 Unknown [id number] 2.16.840.1.193221.3.579.2 1989 Unknown [id number] 2.16.840.1.640697.3.579.2 1989 Unknown [id number] 2.16.840.1.259484.3.579.2 1989 Unknown [id number] 2..840.1.995507.3.579. 1989 Unknown [id number] 2..840.1.425332.3.579. 1989 Unknown [id number] 2..840.1.901178.3.579. 1989 Unknown [id number] 2..840.1.719324.3.579. 1989 Unknown [id number] 2..840.1.601030.3.579. 1989 Unknown [id number] 2.16.840.1.513599.3.579.2 1989 Unknown [id number] 2.16.840.1.266827.3.579.2 1989 Unknown [id number] 2.16.840.1.992962.3.579.2 1989 Unknown [id number] 2.16.840.1.804829.3.579.2 1989 Unknown [id number] 2.16.840.1.444339.3.579.2 1989 Unknown [id number] 2.16.840.1.293899.3.579.2 1989 Unknown [id number] 2.16.840.1.579049.3.579.27 1989 Unknown [id number] 2.16.840.1.270758.3.579.2. 727 1989 Unknown [id number] 2.16.840.1.657181.3.579.2. 1243 1989 Unknown [id number] 2.16.840.1.228728.3.579.2. 4 1989 Unknown [id number] 2.16.840.1.116309.3.579.2. 1244 1989 Unknown [id number] 2.16.840.1.923497.3.579.2. 4 1989 Unknown [id number] 2.16.840.1.177441.3.579.2. 1244 1989 Unknown [id number] 2.16.840.1.571935.3.579.2. 4 1989 Unknown [id number] 2.16.840.1.555653.3.579.2. 1244 1959 Unknown [id number] 1.2.840.433384.1.13.239.2. 7.3.095711.315 1959 Unknown [id number] Unknown [id number] 2.16.840.1.092883.3.579.2. 531 Social History Date Type Detail Facility Start: 01-30-2020 End: 02-13-2023 Tobacco smoking status AKIS Never smoker [facility] Start: 01-30-2020 End: 01-28-2022 Tobacco use and exposure Never used [facility] Start: 01-30-2020 End: 11-02-2022 Alcohol intake Current non-drinker of alcohol (finding) [facility] Start: 1990 Sex Assigned At Not on file A [facility] Start: 06-08-2021 End: 01-19-2022 Exposure to SARS-CoV-2 (event) Not sure [facility] Start: 05-06-2021 End: 12-04-2022 Alcohol intake Ex-drinker (finding) [facility] Start: 10-16-2019 End: 06-20-2022 History SDOH Financial 5 [facility] Start: 10-16-2019 End: 06-20-2022 History SDOH Food Worry 1 [facility] Start: 10-16-2019 End: 06-20-2022 History SDOH Transport Med 2 [facility] Start: 10-15-2019 Education 18 [facility] Start: 06-17-2022 End: 09-18-2022 Sex Assigned At [facility] Start: 10-04-2021 End: 01-01-2022 Exposure to SARS-CoV-2 (event) Unable to assess [facility] Tobacco smoking status Never [facility] Start: 06-17-2022 End: 09-18-2022 History of Social function [facility] Work Phone: (I/We) worried wheth er (my/our) food would run out before (I/we) got money to buy more. Never true [facility] Work Phone: In the past 12 month s, was there a time when you were not able to pay the mortgage or rent on time? No [facility] Work Phone: Do you belong to any clubs or organizations such as yazidism groups, unions, fraternal or athletic groups, or school groups? Yes [facility] Are you now , , , , never or living with a partner? [facility] How often to you hav e a drink containing alcohol? Never [facility] How hard is it for y ou to pay for the very basics like food, housing, medical care, and heating Somewhat hard [facility] Do you feel stress - tense, restless, nervous, or anxious, or unable to sleep at night because your mind is troubled all the time - these days [OSQ] To some extent [facility] Start: 11-12-2017 Gender identity Identifies as female gender (finding) [facility] How hard is it for y ou to pay for the very basics like food, housing, medical care, and heating Hard [facility] (I/We) worried wheth er (my/our) food would run out before (I/we) got money to buy more. Sometimes true [facility] Start: 1990 Sex Assigned At Female [facility] Medical Equipment Procedure Code Equipment Code Equipment Origin al Text Equipment Identifier Dates Fibertak Hip Yoanna f Bunching Kl [place] 1.8mm [id number] Start: 07-10-2021 Fibertak Hip Yoanna f Bunching Kl [place] 1.8mm [id number] Start: 07-10-2021 Fibertak Hip Yoanna f Bunching Kl [place] 1.8mm [id number] Start: 07-10-2021 Fibertak Hip Yoanna f Bunching Kl [place] 1.8mm [id number] Start: 07-10-2021 Functional Status Date Assessment Result Facility 12-31-2022 Functional Status N/A [facility] 10-20-2022 Functional Status N/A [facility] 10-19-2022 Functional Status N/A [facility] 07-29-2022 Functional Status N/A [facility] 06-10-2022 Functional Status N/A [facility] Clinical Notes 07-09-2019 to 01-28-2023 Telephone Encounter - Laura Rodas RN - 01/18/2023 9:20 AM ESTTelephone Encounter - Dorita Manning - 01/15/2023 11:47 AM ESTTelephone Encounter - Joaquín Garza RN - 01/11/2023 3:40 PM EST Note Date & Type Note Facility 01-28-2023 Note HNO ID: [id number] Author: Rylee Thacker APRN.OBGYN HOSPITALIST PHYSICIAN Service: ? Author Type: Nurse Practitioner Type: Progress Notes Filed: 01/28/2023 3:12 PM Note Text: Appointment cancelled by patient [facility] 01-18-2023 Miscellaneous Notes [facility] placed [facility] to confirm received potassium orders for (K-2.9). No answer and left message for cami Sidhu from [facility]. (Do not feel Dr. Gutnick is managing TPN as well) [facility] called regarding potassium level. Level was 2.9. Patient already on max dose of potassium allowed with her TPN. They are asking for recommendations # [phone] documented in this encounter [facility] 01-11-2023 Miscellaneous Notes The office did not attempt to reach the patient. Pt calling States according to her phone it looks like she missed a call from office No message left per patient Asking if office called, if so ok to call her back [phone] Ok to leave a message documented in this encounter [facility] 01-11-2023 Note HNO ID: [id number] Author: Fern Jonas LPN Service: ? Author Type: LICENSED NURSE Type: Progress Notes Filed: 01/11/2023 10:42 AM Note Text: Please verify and cosign Fern Jonas LPN [facility] 01-11-2023 Miscellaneous Notes Surg request placed, pt aware, instructions given verbally and via mychart, all questions and concerns addressed. documented in this encounter [facility] 01-11-2023 History of Presen t illness Narrative Please verify and cosign Fern Jonas LPN documented in this encounter [facility] 01-08-2023 Note [facility] 01-08-2023 History of Presen t illness Narrative VIRTUAL VISIT Referring Or Consulting Physician: Dr. Magaña CHIEF COMPLAINT: pain in my upper abdomen HPI: This is a 32 year old female here for evaluation of pain that began many years ago following no particular inciting event. At this point, the pain is located in the areas detailed above (see cc). The patient describes the pain as aching and sometimes severe . It is constant The pain is exacerbated by eating anything thicker than pudding In the past, the patient has been treated with amitriptyline, gabapentin. In the past, the patient has been treated with the following interventional pain procedures: none. Relevant [place] records were reviewed. Adverse Reaction to Medication: no Opioid Agreement: no Receiving Disability Income: no Last Date/Time Patient had Opioid Medication: n/a Imaging Studies: US Mesenteric celiac stenosis I personally reviewed the above imaging findings, and discussed them with the patient in detail. Is the patient receiving analgesia/pain relief from the current medications? (-) Has the current medication improved activities of daily living? (-) Have the current medications been associated with any adverse events? (-) Has the patient displayed any aberrant drug-related behaviors? (-) Illicit drug use? (+) [facility] Patient denies loss of bowel or bladder control, unintentional weight loss, h/o malignancy, fevers/chills/night sweats. PAST MEDICAL HISTORY Diagnosis Date Anemia Takes Pro FE daily. Arthritis Asthma Class 1 obesity without serious comorbidity with body mass index (BMI) of 33.0 to 33.9 in adult 09/25/2019 Gastric ulcer 2013 GERD (gastroesophageal reflux disease) History of IBS Hypertension Hypothyroid RICHAR on CPAP wears mask every night PCOS (polycystic ovarian syndrome) PONV (postoperative nausea and vomiting) 01/29/2022 Ventral hernia without obstruction or gangrene PAST SURGICAL HISTORY Procedure Laterality Date APPENDECTOMY 08/2019 ARTHROSCOPY, SHOULDER, SURGI Right 08/2022 SLAP REPAIR and Subacromial Decompression CHOLECYSTECTOMY COLONOSCOPY GEN ANES EGD F TOTAL ABDOMINAL HYSTERECTOMY PAST SURGICAL HISTORY OF Bilateral arthroscopic knee surgery- was catcher in college PAST SURGICAL HISTORY OF 08/2020 gastric sleeve PICC LINE INSERT/CONSULT 12/24/2020 VAGINAL DELIVERY AFTER DELIVERY Three C-sections Social History Tobacco Use Smoking status: Never Smokeless tobacco: Never Substance Use Topics Alcohol use: Not Currently Drug use: Never Comment: denies tx for drug/alcohol abuse in the past. FH: Patient denies a family history of the current chief complaint. ALLERGIES Allergen Reactions Adhesive Tape-Silic* Intolerance Sensitive to certain adhesive tapes. Redness and itchy. Codeine GI Upset Nsaids (Non-Steroid* Contraindication-Medical Surgical S/p RYGB Current Outpatient Medications Medication Sig gabapentin (NEURONTIN) 100 mg capsule take 1 tab PO BID x 7 days, then increase to 2 tabs PO BID x 7 days, then increase to 2 tabs PO TID if tolerated. escitalopram oxalate (LEXAPRO) 20 mg tablet Take 1 tablet by mouth once daily. linaclotide (LINZESS) 145 mcg capsule Take 1 capsule by mouth daily at 6 am. promethazine (PHENERGAN) 25 mg tablet Take 1 tablet by mouth every 6 hours as needed. baclofen 5 mg tablet Take 2 tablets by mouth three times a day as needed for 14 days, THEN 1 tablet three times a day as needed for 7 days, THEN 1 tablet two times a day as needed for 7 days, THEN 1 tablet once daily as needed for up to 7 days. albuterol HFA (PROVENTIL HFA, VENTOLIN HFA) 90 mcg/actuation inhaler Inhale 2 Puffs as instructed every 4 hours as needed for wheezing/shortness of breath. fluticasone-salmeterol (ADVAIR DISKUS) 100-50 mcg/dose inhaler Inhale 1 Puff as instructed every 12 hours. pantoprazole (PROTONIX) 40 mg grps Take 40 mg by mouth daily before breakfast. metoclopramide HCl (REGLAN) 5 mg tablet Take 5 mg by mouth before meals and at bedtime. mirtazapine (REMERON) 15 mg tablet Take 1 tablet by mouth daily at bedtime. busPIRone (BUSPAR) 10 mg tablet Take 1 tablet by mouth twice daily. acetaminophen (TYLENOL) 500 mg tablet Take 2 tablets by mouth every 6 hours as needed for pain or fever (specify). docusate sodium (COLACE) 100 mg capsule Take 1 capsule by mouth three times daily. decrease the dose or stop for diarrhea polyethylene glycol 3350 (MIRALAX) 17 gram/dose powder Take 17 g by mouth twice daily. reduced the dose or stop if you get diarrhea and restart after 48 hours to maintain 'at least' once a day bowel movement. Dissolve dose in 4 - 8 ounces of liquid and take as directed. topiramate (TOPAMAX) 100 mg tablet Take 100 mg by mouth twice daily. levothyroxine (SYNTHROID) 100 mcg tablet Take 1 tablet by mouth once daily. liothyronine (CYTOMEL) 5 mcg tablet Take 5 mcg by mouth once daily. No current facility-administered medications for this visit. REVIEW OF SYSTEMS: GENERAL: weight loss (-), malaise(+), fevers (-) HEENT: thrush(-), epistaxis(-) NECK: Negative for neck swelling. RESPIRATORY: Negative for cough, wheezing or shortness of breath (-). CARDIOVASCULAR: chest pain(-), leg swelling(-) or palpitations(-) GI: abdominal discomfort(+), blood in stools/melena/change in bowel habits(-). MUSCULOSKELETAL: joint pain(-), swelling(-), back pain(-) , muscle pain(-). SKIN: (-) for lesions, rash, and itching. PSYCH: sleep disturbance(-), mood disorder(-), recent psychosocial stressors(-). HEMATOLOGY/LYMPHOLOGY: Negative for prolonged bleeding, easy bruising, or swollen nodes (-) NEURO: headaches(-), syncope(-), paralysis(-), seizures(-), tremors (-) All other reviewed and negative other than HPI. Physician attestation: I, Vic Ramos MD, personally performed the services described in this documentation. Electronically Signed: Vic Ramos MD January 08, 2023 4:05 PM ASSESSMENT AND MEDICAL DECISION MAKING: This is a 32 year old female with abd pain Tried gabapentin, elavil in the past (some small benefit) Patient of Dr. Magaña Dx: Median arcuate ligament syndrome (hcc) (primary encounter diagnosis) Neuralgia and neuritis PLAN: diagnostic celiac plexus blockade gabapentin revisited avoid amitriptyline re: QT 455 I spent a total of 45 minutes on the date of the service which included preparing to see the patient, zebb-gx-mavj patient care, completing clinical documentation, obtaining and/or reviewing separately obtained history, counseling and educating the patient/family/caregiver, ordering medications, tests, or procedures, communicating with other HCPs (not separately reported), independently interpreting results (not separately reported), communicating results to the patient/family/caregiver, and care coordination (not separately reported). Vic Ramos MD January 08, 2023 documented in this encounter [facility] 01-06-2023 Miscellaneous Notes Spoke with patient Virtual visit for upper abdominal pain Diagnostic work up through [facility] Patient states she has digital records that she will bring to appointment on 01/08/23. Cannot bring them in prior to the appointment as we are closed tomorrow. Called patient no answer left vm to call office regarding reason for visit (No diagnosis) To send medical records if possible prior to visit related to pain for visit. documented in this encounter [facility] 12-31-2022 Hospital Discharg e instructions Patient Education 12/31/2022 16:02:59 Diarrhea, Adult Diarrhea, Adult Diarrhea is frequent loose and watery bowel movements. Diarrhea can make you feel weak and cause you to become dehydrated. Dehydration can make you tired and thirsty, cause you to have a dry mouth, and decrease how often you urinate. Diarrhea typically lasts 2 3 days. However, it can last longer if it is a sign of something more serious. It is important to treat your diarrhea as told by your health care provider. Follow these instructions at home: Eating and drinking Follow these recommendations as told by your health care provider: Take an oral rehydration solution (ORS). This is an nzdp-woq-oexcqkf medicine that helps return your body to its normal balance of nutrients and water. It is found at pharmacies and retail stores. Drink plenty of fluids, such as water, ice chips, diluted fruit juice, and low-calorie sports drinks. You can drink milk also, if desired. Avoid drinking fluids that contain a lot of sugar or caffeine, such as energy drinks, sports drinks, and soda. Eat bland, bfct-hn-ixqdxb foods in small amounts as you are able. These foods include bananas, applesauce, rice, lean meats, toast, and crackers. Avoid alcohol. Avoid spicy or fatty foods. Medicines Take xuaj-bzs-qdzepgk and prescription medicines only as told by your health care provider. If you were prescribed an antibiotic medicine, take it as told by your health care provider. Do not stop using the antibiotic even if you start to feel better. General instructions Wash your hands often using soap and water. If soap and water are not available, use a hand amplifier mechanic. Others in the household should wash their hands as well. Hands should be washed: ?After using the toilet or changing a diaper. ?Before preparing, cooking, or serving food. ?While caring for a sick person or while visiting someone in a hospital. Drink enough fluid to keep your urine pale yellow. Rest at home while you recover. Watch your condition for any changes. Take a warm bath to relieve any burning or pain from frequent diarrhea episodes. Keep all follow-up visits as told by your health care provider. This is important. Contact a health care provider if: You have a fever. Your diarrhea gets worse. You have new symptoms. You cannot keep fluids down. You feel light-headed or dizzy. You have a headache. You have muscle cramps. Get help right away if: You have chest pain. You feel extremely weak or you faint. You have bloody or black stools or stools that look like tar. You have severe pain, cramping, or bloating in your abdomen. You have trouble breathing or you are breathing very quickly. Your heart is beating very quickly. Your skin feels cold and clammy. You feel confused. You have signs of dehydration, such as: ?Dark urine, very little urine, or no urine. ?Cracked lips. ?Dry mouth. ?Sunken eyes. ?Sleepiness. ?Weakness. Summary Diarrhea is frequent loose and sometimes watery bowel movements. Diarrhea can make you feel weak and cause you to become dehydrated. Drink enough fluids to keep your urine pale yellow. Make sure that you wash your hands after using the toilet. If soap and water are not available, use hand amplifier mechanic. Contact a health care provider if your diarrhea gets worse or you have new symptoms. Get help right away if you have signs of dehydration. This information is not intended to replace advice given to you by your health care provider. Make sure you discuss any questions you have with your health care provider. Document Revised: 08/13/2021 Document Reviewed: 08/13/2021 [employer] Patient Education 2022 [employer]. 12/31/2022 16:02:59 Abdominal Pain, Adult Abdominal Pain, Adult Pain in the abdomen (abdominal pain) can be caused by many things. Often, abdominal pain is not serious and it gets better with no treatment or by being treated at home. However, sometimes abdominal pain is serious. Your health care provider will ask questions about your medical history and do a physical exam to try to determine the cause of your abdominal pain. Follow these instructions at home: Medicines Take wfga-ika-grfpjgh and prescription medicines only as told by your health care provider. Do not take a laxative unless told by your health care provider. General instructions Watch your condition for any changes. Drink enough fluid to keep your urine pale yellow. Keep all follow-up visits as told by your health care provider. This is important. Contact a health care provider if: Your abdominal pain changes or gets worse. You are not hungry or you lose weight without trying. You are constipated or have diarrhea for more than 2 3 days. You have pain when you urinate or have a bowel movement. Your abdominal pain wakes you up at night. Your pain gets worse with meals, after eating, or with certain foods. You are vomiting and cannot keep anything down. You have a fever. You have blood in your urine. Get help right away if: Your pain does not go away as soon as your health care provider told you to expect. You cannot stop vomiting. Your pain is only in areas of the abdomen, such as the right side or the left lower portion of the abdomen. Pain on the right side could be caused by appendicitis. You have bloody or black stools, or stools that look like tar. You have severe pain, cramping, or bloating in your abdomen. You have signs of dehydration, such as: ?Dark urine, very little urine, or no urine. ?Cracked lips. ?Dry mouth. ?Sunken eyes. ?Sleepiness. ?Weakness. You have trouble breathing or chest pain. Summary Often, abdominal pain is not serious and it gets better with no treatment or by being treated at home. However, sometimes abdominal pain is serious. Watch your condition for any changes. Take aova-cuy-feojujc and prescription medicines only as told by your health care provider. Contact a health care provider if your abdominal pain changes or gets worse. Get help right away if you have severe pain, cramping, or bloating in your abdomen. This information is not intended to replace advice given to you by your health care provider. Make sure you discuss any questions you have with your health care provider. Document Revised: 03/22/2020 Document Reviewed: 06/12/2019 [employer] Patient Education 2022 [employer]. Follow Up Care 12/31/2022 12:31:54 With:Jaquan Morrow Address: [address] [place] [phone] (1) When:01/03/2023 15:35:16 [facility] 12-31-2022 Evaluation + Plan note Extrac darvin from: Title:ED Note Author:Lonnie Rios PA-C te:12/31/22 Abdominal pain (R10.9: Unspe cified abdominal pain) Diarrhea (R19.7: Diarrhea, unspecified) Orders: atropine-diphenoxylate, 1 tab(s), Tab, Oral, Once, Stop date 12/31/22 14:54:00 EST, STAT, Start date 12/31/22 14:54:00 EST heparin flush, 500 unit(s) = 5 mL, Soln-IV, IV Push, Once, Stop date 12/31/22 15:44:00 EST, STAT, Start date 12/31/22 15:44:00 EST, 12/31/22 15:44:00 EST heparin flush, 500 unit(s) = 5 mL, Soln-IV, IV Push, Once, Stop date 12/31/22 15:43:00 EST, STAT, Start date 12/31/22 15:43:00 EST, 12/31/22 15:43:00 EST morphine, 4 mg = 1 mL, Injection, IV Push, Once, Stop date 12/31/22 13:43:00 EST, STAT, Start date 12/31/22 13:43:00 EST, 12/31/22 13:43:00 EST ondansetron, 4 mg = 2 mL, Injection, IV Push, Once, Stop date 12/31/22 13:43:00 EST, STAT, Start date 12/31/22 13:43:00 EST, 12/31/22 13:43:00 EST potassium bicarbonate, 50 mEq = 2 tab(s), Tab-Eff, Oral, Once, Stop date 12/31/22 15:27:00 EST, STAT, Start date 12/31/22 15:27:00 EST, 12/31/22 15:27:00 EST potassium chloride, 40 mEq = 2 tab(s), Tab-ER, Oral, Once, Stop date 12/31/22 15:23:00 EST, STAT, Start date 12/31/22 15:23:00 EST, 12/31/22 15:23:00 EST Sodium Chloride 0.9% intravenous solution, 1,000 mL, Soln-IV, IV, Once, Stop date 12/31/22 12:56:00 EST, STAT, Start date 12/31/22 12:56:00 EST, Infuse over 61, minute(s) Automated Diff Basic Metabolic Panel Beta hCG Qual CBC w/ Auto Diff eGFR Hepatic Function Panel Lipase Level UA With Cult Reflex Future Appointments Appointment Date:01/20/2023 10:00:00 AM Scheduled Provider:Rajni Rouse MD Location:[facility] Appointment Type:URO Office Visit Future Scheduled Tests Radiology* US Renal 06/10/22 [facility]11-13-2023 Miscellaneous Notes* Telephone Encounter - Shanique Manning HUC - 12/28/2022 4:05 PM EST BMI Incoming Patient Nursing Line Call Summary: Situation/Concerns Melisa Potter's called [phone] called and said Abbey needs a RTWletter stating she can return to work with a pick line. 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 Background/Duration of event: TOÑITO Assessment/Subjective symptoms: as noted above. Recommendation/How message sent to provider/nurse:Itzel Hurley RN via Telephone Encounter. CHRIS Katz documented in this encounterOhiohealth O'Blen[facility]10-30-2023 NoteSelect Medical Ohiohealth Rehabilitation Hospital10-30-2023 History of Present illness Narrative* Deacon Kat MD - 12/14/2022 1:40 PM EDT VIRTUAL VISIT PROGRESS NOTE This is a virtual visit using AUDIO ONLY (video did not work for patient). It required patient-provider interaction for the medical decision making as documented below. I have communicated my name and active licensure. The patient's identity and physical location wereverified at the time of this visit. 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 Abbey Garcia is a 32 year old female seen for follow up post op. Recent admission 12/06/2022 - 12/09/2022 for intractable nausea, vomiting and abdominal pain. Patient reports pain is located over pouch are area of intestinal repair after eating, lasts up to 2 hours. Remains on TPN that was started by another provider. IMAGIN12/06/2022 CTA ABD/PEL W IVCON IMPRESSION: No acute abdominal or pelvic abnormality. Specifically, no findings to suggest mesenteric ischemia. No CTA findings to correlate with patient's reported high-grade celiac axis stenosis on ultrasound.Ultrasound images are not available for comparison. Hepatic steatosis LABS: 11/28/2022 Prealbumin : 15mg/dL Component Latest Ref Rng & Units 12/09/2022 Protein, Total 6.3 - 8.0 g/dL 5.8 (L) Albumin 3.9 - 4.9 g/dL 3.6 (L) Calcium 8.5 - 10.2 mg/dL 8.7 Bilirubin, Total 0.2 - 1.3 mg/dL 0.2 Alkaline Phosphatase 34 - 123 U/L 59 AST 13 - 35 U/L 22 ALT 7 - 38 U/L 13 Glucose 74 - 99 mg/dL 79 BUN 7 - 21 mg/dL 16 Creatinine 0.58 - 0.96 mg/dL 0.61 Sodium 136 - 144 mmol/L 140 Potassium 3.7 - 5.1 mmol/L 4.2 Chloride 97 - 105 mmol/L 108 (H) CO2 22 - 30 mmol/L 23 Anion Gap 9 - 18 mmol/L 9 eGFR >=60 mL/min/1.73m 121 WBC 3.70 - 11.00 k/uL 3.25 (L) RBC 3.90 - 5.20 m/uL 3.78 (L) Hemoglobin 11.5 - 15.5 g/dL 11.7 Hematocrit 36.0 - 46.0 % 34.9 (L) MCV 80.0 - 100.0 fL 92.3 MCH 26.0 - 34.0 pg 31.0 MCHC 30.5 - 36.0 g/dL 33.5 RDW-CV 11.5 - 15.0 % 13.5 Platelet Count 150 - 400 k/uL 172 MPV 9.0 - 12.7 fL 12.6 Absolute nRBC <0.01 k/uL <0.01 Magnesium 1.7 - 2.3 mg/dL 2.0 Phosphorus 2.7 - 4.8 mg/dL 1.8 (L) CTA No evidence of celiac compression/ vascular MALS On my personal review, no other issue of mesenteric twist or other issue with her bypass by CT scan. ASSESSMENT: No diagnosis found. PLAN: I don't have a good explanation for her abdominal pain at this time. I do think it is worth seekinga second opinion regarding MALS and she is scheduled to see Dr. Magaña in 1 week, who is a well knownsurgeon for MALS. I would like to see her back after that visit. We discussed that a surgical feeding tube is a possibility, but that I would want to do that only after consideration of the MALS second opinion. Deacon Kat MD documented in this encounterOhiohealth O'Bleness Hospital10-25-2023 NoteSelect Medical Ohiohealth Rehabilitation Hospital10-25-2023 NoteSelect Medical [facility]10-25-2023 NoteSelect Medical [facility]10-24-2023 NoteSelect Medical [facility]10-23-2023 Note [facility]10-23-2023 NoteSelect Medical [facility]10-23-2023 NoteSelect Medical [facility]10-20-2023 History and physical note* Agustin Zamorano MD - 12/04/2022 9:44 AM EDT Consultation requested by Dr. Kat for an opinion regarding MALS. My final recommendations will be communicated back to the requesting physician by way of shared Medical record or letter to requesting physician via US mail. 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 Patient presents for evaluation of chronic abdominal pain. 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 Patient reports chronic epigastric pain. She reports that eating makes the pain worse. She reports mild improvement when she doesn't eat. She reports nausea and occasional vomiting. Patient reports minimal PO intake. She drinks 3 cups of liquids (Gatorade or water). Patient reports that she did have some improvement since Dr. Kat's surgery last month but that was transient. Patient is currently on TPN which was started since her last admission to [facility] last week. Patient's weight has been fluctuating around 181-189 lbs over the past couple of months. Mesenteric US done 11/26 showed: Celiac: 70-99% stenosis. Splenic: Unable to visualize. Superior mesenteric artery: 0-69% stenosis. No evidence of hemodynamically significant stenosis. Inferior mesenteric artery: 0-69% stenosis. No evidence of hemodynamically significant stenosis. FUNCTIONAL STATUS: Independent PAST MEDICAL HISTORY Diagnosis Date Anemia Takes Pro FE daily. Arthritis Asthma Class 1 obesity without serious comorbidity with body mass index (BMI) of 33.0 to 33.9 in adult 09/25/2019 Gastric ulcer 2013 GERD (gastroesophageal reflux disease) History of IBS Hypertension Hypothyroid RICHAR on CPAP wears mask every night PCOS (polycystic ovarian syndrome) PONV (postoperative nausea and vomiting) 01/29/2022 Ventral hernia without obstruction or gangrene PAST SURGICAL HISTORY Procedure Laterality Date APPENDECTOMY 08/2019 ARTHROSCOPY, SHOULDER, SURGI Right 08/2022 SLAP REPAIR and Subacromial Decompression CHOLECYSTECTOMY COLONOSCOPY GEN ANES EGD F TOTAL ABDOMINAL HYSTERECTOMY PAST SURGICAL HISTORY OF Bilateral arthroscopic knee surgery- was catcher in [employer] PAST SURGICAL HISTORY OF 08/2020 gastric sleeve PICC LINE INSERT/CONSULT 12/24/2020 VAGINAL DELIVERY AFTER DELIVERY Three C-sections FAMILY HISTORY Problem Relation Age of Onset Diabetes Mother Hypertension Mother Obesity Mother Hypertension Father Hypertension Brother Obesity Brother Hypertension Brother Obesity Brother Social History Tobacco Use Smoking status: Never Smokeless tobacco: Never Substance Use Topics Alcohol use: Not Currently Drug use: Never Comment: denies tx for drug/alcohol abuse in the past. (Not in a hospital admission) ALLERGIES Allergen Reactions Adhesive Tape-Silic* Intolerance Sensitive to certain adhesive tapes. Redness and itchy. Codeine GI Upset Nsaids (Non-Steroid* Contraindication-Medical Surgical S/p RYGB COMPLETE REVIEW OF SYSTEMS: GENERAL: Unintentional weight loss RESPIRATORY: Negative for cough, hemoptysis, wheezing, COPD, dyspnea or shortness of breath CARDIOVASCULAR: Negative for chest pain, leg swelling, CHF or palpitations GI: nausea, vomiting Objective PHYSICAL EXAM: Physical Exam Performed: GENERAL: Alert, no distress, cooperative LUNGS: Lungs clear to auscultation, Good diaphragmatic excursion CARDIAC: Normal S1 and S2; no rubs, murmurs, or gallops ABDOMEN: Soft, nontender LMP 08/19/2020 DATA: Diagnostic tests reviewed for today's visit: Most recent labs and imaging results. 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 Patient with weight loss requiring TPN, persistent nausea and PO intolerance. - Plan for CTA for further evaluation Medical Decision Making: Medical Decision Making Level: 1 - N/A SIGNATURE: Russ Wakefield MD PATIENT NAME: Abbey Garcia DATE: December 04, 2022 TIME: 9:44 AM Attending Note I evaluated the patient and personally participated in the paula components. I agree with the resident's findings and plan as documented and have discussed the case and management of the patient's carewith the resident. Signature: Agustin Zamorano MD Date: 12/16/2022 Time: 2:19 PM documented in this encounterOhiohealth O'Bleness Hospital10-19-2023 Miscellaneous Notes* Telephone Encounter - Oliva Dobbs RN - 12/03/2022 2:00 AM EDT BMI SPECIALTY CARE COORDINATION TELEPHONE ENCOUNTER Patient hospitalized 11/27 unsure if d/c. Referred to Dr Kat who referred to Dr Zamorano [facility] of hypothyroidism, HTN, gastric ulcer, GERD, asthma, kidney stone, anemia, IBS, obesity (s/p LSG 09/03/20 with conversion to LRYGB for GERD 01/29/[address] Kat), PCOS, anxiety and chronic abdominal pain (see HPI for full details and extensive surgical history) admitted for acute on chronic epigastric pain radiating to the back associated with nausea/ vomiting and anorexia in the setting of new pale steatorrhea (no BM last 2 days). 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 Will r/s if pt still in house. 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 referral to GI specialist , on TPN documented in this encounterOhiohealth O'Bleness Hospital10-17-2023 Miscellaneous Notes* Telephone Encounter - Li Kimball RN - 12/01/2022 2:32 PM EDT Patient remains admitted at [facility]. Patient received a PICC line for home TPN to bridge her to surgery. Patient is scheduled with Dr. Zamorano for virtual consult 12/04/2022. Patient with increasednausea with TPN, [facility] continues to adjust medications. Li Kimball RN documented in this encounterOhiohealth O'Bleness Hospital10-14-2023 NoteHNO ID: [id number] Author: Note, Interface Service: ? Author Type: ? Type: Progress Notes Filed: 11/28/2022 5:10 AM Note Text: Epic Scheduled Downtime: 11/28/2022 1:00:00 AM to 11/28/2022 1:28:00 [facility]10-14-2023 NoteHNO ID: [id number] Author: Note, Interface Service: ? Author Type: ? Type: Progress Notes Filed: 11/28/2022 3:45 AM Note Text: Epic Scheduled Downtime: 11/28/2022 1:00:00 AM to 11/28/2022 1:28:00 [id number] NoteHNO ID: [id number] Author: Note, Interface Service: ? Author Type: ? Type: Progress Notes Filed: 11/28/2022 3:27 AM Note Text: Epic Scheduled Downtime: 11/28/2022 1:00:00 AM to 11/28/2022 1:28:00 [facility]23 NoteHNO ID: [id number] Author: Jennifer Gillespie RN Service: ? Author Type: Registered Nurse Type: Progress Notes Filed: 11/26/2022 10:37 AM Note Text: Patient in office for hydration infusion. Patient tolerated infusion well. [id number] Miscellaneous Notes* Telephone Encounter - Kristin Hu RN - 11/25/2022 12:55 PM EDT Left message confirming pts appt tomorrow in the chronic care clinic for hydration. documented in this encounterOhiohealth O'Bleness Hospital10-09-2023 Miscellaneous Notes* Telephone Encounter - Li Kimball RN - 11/23/2022 2:26 PM EDT Mesenteric [facility], patient notified. Li Kimball RN * Telephone Encounter - Li Kimball RN - 11/23/2022 12:31 PM EDT I spoke to the patient's and advised that I have a request out to [facility] for IV hydration and Dr. Kat has ordered an ultrasounds to check for MALS. Melisa stated understanding and had no further questions. Li Kimball RN * Telephone Encounter - Li Kimball RN - 11/23/2022 12:[address] Kat mesenteric vascular ultrasound to be ordered to assess for possible MALS. Li Kimball RN * Telephone Encounter - Li Kimball RN - 11/23/2022 12:07 PM EDT Patient admitted to the hospital for abdominal pain and spasming. Patient's called and states the hospital ids going to discharge [place] and states she is unable to eat or drink and continues to have pain. Li Foster, RN documented in this encounterOhiohealth O'Bleness Hospital10-08-2023 NoteHNO ID: [id number] Author: Vicky Jean Baptiste RT(R) Service: Radiology Author Type: Technologist Type: Progress Notes Filed: 11/22/2022 4:50 PM Note Text: Radiology Service Progress Note PATIENT NAME: Abbey Garcia DATE OF SERVICE: November 22, 2022 TIME: 4:50 PM PATIENT IDENTITY VERIFICATION COMPLETED USING TWO (2) IDENTIFIERS: Name and Date of confirmed by patient verbally and Name and Date of confirmed by identification band. FALL SCREENING: Has the patient had 2 falls in the last year or 1 fall with injury or currently using an Ambulatory Assistive Device (Walker, Cane, Wheelchair, Crutches, etc.)? Emergency Room Patient: Screened in ED PATIENT GENDER DATA: Female. status: : No status: NO. PATIENT RELEVANT IMPLANT DATA REVIEWED: Not Applicable RADIOLOGY DEPARTMENT: CT; Exam(s) Completed: Abdomen/Pelvis PERIPHERAL IV DATA: Inpatient: see LDA documentation SIGNED BY: Vicky Jean Baptiste RT(R) November 22, 2022 4:50 [facility] [id number] NoteHNO ID: [id number] Author: Toni Quintana II RT(R) Service: Radiology Author Type: Technologist Type: Progress Notes Filed: 11/22/2022 4:10 PM Note Text: Radiology Service Progress Note PATIENT NAME: Abbey Garcia DATE OF SERVICE: November 22, 2022 TIME: 4:10 PM PATIENT IDENTITY VERIFICATION COMPLETED USING TWO (2) IDENTIFIERS: Name and Date of confirmed by patient verbally and Name and Date of confirmed by identification band. FALL SCREENING: Has the patient had 2 falls in the last year or 1 fall with injury or currently using an Ambulatory Assistive Device (Walker, Cane, Wheelchair, Crutches, etc.)? Emergency Room Patient: Screened in ED PATIENT GENDER DATA: Female. status: : No status: NO. PATIENT RELEVANT IMPLANT DATA REVIEWED: Not Applicable RADIOLOGY DEPARTMENT: General X-ray: Exam(s) Completed: Chest X-Ray PERIPHERAL IV DATA: Not applicable SIGNED BY: Toni Valles Quintana II, RT(R) November 22, 2022 4:10 [facility] [id number] NoteHNO ID: [id number] Author: Christy Oliveros MD Service: General Surgery Author Type: Resident Type: Progress Notes Filed: 11/19/2022 7:58 AM Note Text: GENERAL SURGERY SURGERY PROGRESS NOTE Service Date: November 19, 2022 Assessment and Plan: Abbey Garcia is a 32 year old female with history of HTN, HTN, BMI > 30 s/p gastric sleeve, 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 She represented on 11/17 with uncontrolled epigastric pain and nausea, labs and CT overall not significant for an acute process. Pain improving with robaxin use, likely musculoskeletal in origin. Pain control with multimodal regimen PRN. Continue robaxin at current dose Discuss advancement to FLD, HLIV. Zofran anti-emetic PRN. Continue BID protonix and carafate. Continue reglan Daily labs SQH for VTE ppx, mobilize as able Dispo: RNF. Discharge today if symptoms improve Plan discussed with staff Dr Jacquelyn Oliveros M.D. General Surgery Resident For team paging 6AM-6PM during weekdays: [phone] for [facility] Team For team paging after 6PM or on weekend / holidays: [phone] for General Surgery Subjective: - No acute events overnight - Pain control improved with increase in robaxin dosage - Nausea improved - Tolerating clears PHYSICAL EXAM BP 112/72 Pulse 71 Temp 36.4 ?C (97.5 ?F) (Oral) Resp 18 Ht 167.6 cm (5' 6 ) Wt 84.3 kg (185 lb 14.4 oz) LMP 08/19/2020 SpO2 98% BMI 30.01 kg/m? Intake/Output Summary (Last 24 hours) at 11/19/2022 0756 Last data filed at 11/19/2022 0533 Gross per 24 hour Intake 1689 ml Output 600 ml Net 1089 ml Constitutional: well appearing, no acute distress Cardiovascular: regular rate and rhythm, wwp Resp: normal wob GI: Soft, Non-distended, nontender Integumentary: warm and dry Neurological/Psychiatric: alert and oriented Wound/Surgical Site: incisions c/d/i Labs: CBC, BMP, MG, PHOS Recent Labs 11/19/22 0633 11/18/22 0743 11/17/22 1211 11/12/22 0443 11/04/22 1202 10/28/22 0506 10/27/22 0513 10/26/22 0536 WBC 2.99* 3.48* 4.06 9.59 < > 4.62 3.53* 3.44* HB 12.4 12.3 12.9 12.8 < > 10.9* 10.9* 11.1* HCT 36.3 35.7* 37.2 36.9 < > 33.4* 33.6* 34.9* PLT 239 214 85* 253 < > 174 160 181 NA 140 137 139 136 < > 138 140 139 K 4.2 4.2 4.3 4.2 < > 4.1 4.1 4.2 CHLOR 104 105 107* 104 < > 108* 110* 110* CO2 25 22 23 20* < > 21* 22 20* BUN 6* 6* 8 8 < > 7 5* 5* CREAT 0.82 0.61 0.75 0.62 < > 0.76 0.70 0.73 GLUC 80 115* 80 102* < > 84 89 83 CA 8.9 8.8 8.8 8.8 < > 8.3* 8.1* 8.3* MG 1.9 -- -- -- -- 1.9 1.9 1.9 P 4.1 -- -- -- -- 3.2 3.1 4.3 < > = values in this interval not displayed. Liver Function, Amylase, AND Lipase Recent Labs 11/17/22 1211 11/05/22 1052 11/04/22 1202 10/28/22 0506 06/24/22 0858 06/20/22 1222 04/07/20 0527 04/06/20 0536 02/04/20 0725 02/03/20 1458 02/03/20 0032 TPROT 6.9 6.6 6.9 5.2* < > -- < > 6.6 < > 6.5 -- ALB 4.2 4.2 4.3 3.2* < > -- < > 4.1 < > 4.1 -- ALT 22 15 16 11 < > -- < > 20 < > 12 -- AST 40* 26 25 23 < > -- < > 29 < > 21 -- ALKPHOS 69 71 69 54 < > -- < > 59 < > 52 -- TBILI 0.4 0.4 0.3 0.3 < > -- < > 0.4 < > 0.3 -- LACT -- -- -- -- -- 0.9 -- 0.8 -- 0.9 0.83 < > = values in this interval not displayed. Coags Recent Labs 04/05/20 1514 04/05/20 1400 APTT 27.2 -- INR 1.0 1.0 Cardiac EnzymesFall River [id number] NoteHNO ID: [id number] Author: Raegan Mckay RN Service: Care Management Author Type: Registered Nurse Type: Care Mgt Initial Assessment Filed: 11/18/2022 11:07 AM Note Text: CARE MANAGEMENT: ASSESSMENT AND DISCHARGE PLAN SERVICE DATE: November 18, 2022 SERVICE TIME: 11:05am PCP: Jaquan Morrow Primary Contact: Extended Emergency Contact Information Primary Emergency Contact: Melisa Garcia Address: [address] [place] [address] Mobile Relation: Spouse Admission Status: Inpatient Insurance Provider: [employer] PPO Discharge Planning requested by: Per Department Practice Potential Transition Plans No Services Indicated Advance Directives Current Advance Directive: Health Care Power of Supervisor Title In Chart: Yes Up To Date and Valid: Yes Current Living Arrangements and Support Lives with: Spouse/significant other Type of Residence: Private Residence (House) Does the patient have to climb stairs at home?: Yes Support: Spouse/significant other, Family members How do you manage to accomplish the following: Independent: Ambulation;Bathe/Shower;Dress;Meals/Meal Prep;Going to the bathroom;Medication Management;Transportation to appointments/community Current Services/Equipment Current Post-Acute Service(s): None Discharge Planning Patient Goal(s): Increase strength, General wellness, Be able to go home Jackson of Choice Explained: Jackson of Choice Given: No Reason Not Given: No placements necessary Are you interested in bedside delivery of your medications? No Discharge Planning Participant(s): Spouse/significant other;Family Patient/Family Comments: Caregiver Assessment: Caregiver is ready, willing and able to meet the patient's needs as recommended by the inter-professional team: No Caregiver needed Transport at Discharge: Transportation Arrangements: Car Needs Prior to Discharge: Needs Prior to Discharge: None Post-Acute Discharge Plan: Pt admitted for epigastric pain, nausea, diarrhea. S/p gastric sleeve, 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 Pt is independent [employer], drives, works, lives with . No skilled needs noted. CM will follow as needed. SIGNATURE: Ragean Mckay RN PATIENT NAME: Abbey Garcia DATE: November 18, 2022 TIME: 11:04 AM CONTACT #: [phone] [facility] [id number] NoteHNO ID: [id number] Author: Rajni Walsh RN Service: ? Author Type: Registered Nurse Type: Nursing Progress Note Filed: 11/18/2022 10:13 AM Note Text: Other: C/o ultram not working.Will see about another order.Urine was sent to lab.Will reassess.[facility] [id number] NoteHNO ID: [id number] Author: Christy Oliveros MD Service: General Surgery Author Type: Resident Type: Progress Notes Filed: 11/18/2022 8:14 AM Note Text: Attestation signed by Deacon Kat MD at 11/18/2022 8:01 PM I saw and evaluated the patient. Discussed with the resident and agree with resident's findings and plan as documented in the resident's note. Seems to but musculoskeletal as responded well to robaxin (muscle relaxant) and patient reports pain started after she fell at home, no pain on right side (where it was preop) - increase robaxin dose. Deacon Kat MD GENERAL SURGERY SURGERY PROGRESS NOTE Service Date: November 18, 2022 Assessment and Plan: Abbey Garcia is a 32 year old female with history of HTN, HTN, BMI > 30 s/p gastric sleeve, 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 She represented on 11/17 with uncontrolled epigastric pain and nausea, labs and CT overall not significant for an acute process. Pain control with multimodal regimen PRN Potential diet advancement today if nausea improves, IVF. Zofran anti-emetic PRN. Continue BID protonix and carafate. Continue reglan Daily labs SQH for VTE ppx, mobilize as able Dispo: RNF Plan to be discussed with staff Dr Jacquelyn Oliveros M.D. General Surgery Resident For team paging 6AM-6PM during weekdays: [phone] for [facility] Team For team paging after 6PM or on weekend / holidays: [phone] for General Surgery Subjective: - No acute events overnight - Still c/o pain, controlled with PRNs - Nausea slightly improved PHYSICAL EXAM BP 123/78 Pulse 71 Temp 36.4 ?C (97.5 ?F) (Oral) Resp 17 Ht 167.6 cm (5' 6 ) Wt 84.3 kg (185 lb 14.4 oz) LMP 08/19/2020 SpO2 100% BMI 30.01 kg/m? No intake or output data in the 24 hours ending 11/18/22 0808 Constitutional: well appearing, no acute distress Cardiovascular: regular rate and rhythm, wwp Resp: normal wob GI: Soft, Non-distended, and slightly tender in epigastrium Integumentary: warm and dry Neurological/Psychiatric: alert and oriented Wound/Surgical Site: incisions c/d/i Labs: CBC, BMP, MG, PHOS Recent Labs 11/18/22 0743 11/17/22 1211 11/12/22 0443 11/06/22 0557 11/05/22 1052 11/04/22 1202 10/28/22 0506 10/27/22 0513 10/26/22 0536 10/25/22 0806 12/31/20 1440 12/25/20 0356 WBC 3.48* 4.06 9.59 3.98 5.22 < > 4.62 3.53* 3.44* 3.78 < > 4.40 HB 12.3 12.9 12.8 11.4* 13.3 < > 10.9* 10.9* 11.1* 13.1 < > 11.8 HCT 35.7* 37.2 36.9 34.5* 40.5 < > 33.4* 33.6* 34.9* 39.5 < > 36.4 PLT 214 85* 253 225 207 < > 174 160 181 208 < > 282 NA -- 139 136 140 141 < > 138 140 139 138 < > 140 K -- 4.3 4.2 3.9 3.5* < > 4.1 4.1 4.2 3.8 < > 3.6* CHLOR -- 107* 104 108* 107* < > 108* 110* 110* 106* < > 105 CO2 -- 23 20* 24 22 < > 21* 22 20* 22 < > 26 BUN -- 8 8 8 9 < > 7 5* 5* 7 < > 4* CREAT -- 0.75 0.62 0.74 0.87 < > 0.76 0.70 0.73 0.82 < > 0.76 GLUC -- 80 102* 82 87 < > 84 89 83 85 < > 84 CA -- 8.8 8.8 8.6 8.6 < > 8.3* 8.1* 8.3* 8.8 < > 9.1 MG -- -- -- -- -- -- 1.9 1.9 1.9 1.9 < > 1.9 P -- -- -- -- -- -- 3.2 3.1 4.3 -- -- 4.2 < > = values in this interval not displayed. Liver Function, Amylase, AND Lipase Recent Labs 11/17/22 1211 11/05/22 1052 11/04/22 1202 10/28/22 0506 06/24/22 0858 06/20/22 1222 04/07/20 0527 04/06/20 0536 02/04/20 0725 02/03/20 1458 02/03/20 0032 TPROT 6.9 6.6 6.9 5.2* < > -- < > 6.6 < > 6.5 -- ALB 4.2 4.2 4.3 3.2* < > -- < > 4.1 < > 4.1 -- ALT 22 15 16 11 < > -- < > 20 < > 12 -- AST 40* 26 25 23 < > -- < > 29 < > 21 -- ALKPHOS 69 71 69 54 < > -- < > 59 < > 52 -- TBILI 0.4 0.4 0.3 0.3 < > -- < > 0.4 < > 0.3 -- LACT -- -- -- -- -- 0.9 -- 0.8 -- 0.9 0.83 < > = values in this interval not displayed. Coags Recent Labs 04/05/20 1514 04/05/20 1400 APTT 27.2 -- INR 1.0 1.0 Cardiac EnzymesFall River [id number] Miscellaneous Notes* Telephone Encounter - Li Kimball RN - 11/16/2022 11:51 AM EDT Patient called and states she continues to have abdominal pain and is asking for a Tramadol prescription. Patient also asking for IV fluids as her fluid intake is still not normal. Li Kimball RN documented in this encounterOhio[facility] NoteHNO ID: [id number] Author: Pablo Lebron PSYD Service: ? Author Type: Psychologist Type: Progress Notes Filed: 11/13/2022 8:36 AM Note Text: Assessment was conducted over the phone due to pt's technical difficulties. Patient is a resident of [place], and completed the assessment over the phone in [place]. Psychologist is licensed and stationed in [place]. Informed consent was discussed and verbal assent was granted by the patient. GENERAL PSYCHOLOGY Session #: 3 (session count starts after PSYL NEW EVAL visit) SUBJECTIVE: Recovering from surgery this week (stressful process). Heightened anxiety, stress, fatigue. Marital communication/teamwork efforts. Anxiety re being off work; dietary changes. Help from family; time off work. Stress (parenting, financial). Gratitude efforts (daily affirmations, prayer). OBJECTIVE: Utilized cognitive behavioral and solution focused treatment modalities Mental Status Exam Appearance: Well dressed, well groomed and Appears stated age Behavior: Behaves appropriately during the encounter, Pleasant and interactive Social relatedness: Euthymic and Engaging Speech/Language:The patient demonstrates appropriate tone, prosody, christel, phonetics, and syntax Mood: Stressed, anxious, overwhelmed Affect: Full and appropriate to topic Orientation: Person, Place, Time and Situation Associations: Intact and linear Hallucinations: None Delusions: None Suicidal Ideation: No suicidal ideation, intent or plan. Homicidal Ideation: No homicidal ideation, intent or plan. Insight: Appropriate Judgment: Appropriate ASSESSMENT: Pt reports recovering from surgery this week, and identifies sources of anxiety, stress, and fatigue (identifies coping tools). Pt reports marital communication/teamwork efforts during this stressful time, and her appreciation for family help as she recovers. Pt acknowledges her difficult adjustment being off work (recovery) and making dietary changes, and the importance of allowing for time. Pt describes her efforts to prioritize gratitude (daily affirmations, prayer). DIAGNOSIS: PRIMARY: 1: Depression, Controlled Generalized Anxiety Disorder Situational Stress PROVISIONAL: Unspecified trauma and stressor related disorder TREATMENT MODALITIES: Cognitive Behavioral Therapy to behavior modifications, cognitive restructuring, self monitoring and increasing pleasurable activities, Solution Focused Psychotherapy, Supportive Therapy PROGRESS TO DATE: Senior Living Progress: Stable Short Term Condition: Stable GOALS/OBJECTIVES/INTERVENTIONS: To identify and implement tools for effectively managing symptoms of anxiety, stress, and low mood. Approximately 40 minutes were spent with the patient doing therapy. Pablo Lebron, [facility]09-28-2023 NoteHNO ID: [id number] Author: Saad Her Service: ? Author Type: ? Type: Plan of Care Filed: 11/13/2022 10:06 AM Note Text: PHARMACY BEDSIDE DELIVERY SERVICE Patient Name: Abbey Garcia The marked outpatient medications were filled at [facility] pharmacy and picked up at the pharmacy by the pt Melisa Medication List START taking these medications oxyCODONE IR 5 mg immediate release tablet Commonly known as: ROXICODONE Take 1 tablet by mouth every 6 hours as needed for pain for up to 3 days. CONTINUE taking these medications acetaminophen 500 mg tablet Commonly known as: TYLENOL Take 2 tablets by mouth every 6 hours as needed for pain or fever (specify). ADVAIR HFA INHALATION ALBUTEROL INHALATION busPIRone 10 mg tablet Commonly known as: BUSPAR Take 1 tablet by mouth twice daily. cholecalciferol 50 mcg (2,000 unit) tablet Commonly known as: Vitamin D-3 Take 1 tablet by mouth once daily. docusate sodium 100 mg capsule Commonly known as: COLACE Take 1 capsule by mouth three times daily. decrease the dose or stop for diarrhea escitalopram oxalate 20 mg tablet Commonly known as: LEXAPRO Take 1 tablet by mouth once daily. hydrOXYzine HCl 25 mg tablet Commonly known as: ATARAX TAKE 1 TABLET BY MOUTH TWICE A DAY NEEDED FOR ANXIETY /INSOMNIA levothyroxine 100 mcg tablet Commonly known as: SYNTHROID Take 1 tablet by mouth once daily. linaclotide 145 mcg capsule Commonly known as: LINZESS Take 1 capsule by mouth DAILY (6 AM). liothyronine 5 mcg tablet Commonly known as: CYTOMEL metoclopramide HCl 5 mg tablet Commonly known as: REGLAN Take 1 tablet by mouth before meals and at bedtime. mirtazapine 15 mg tablet Commonly known as: REMERON Take 1 tablet by mouth daily at bedtime. multivitamin tablet NIFEdipine XL 30 mg 24 hr tablet Commonly known as: ADALAT CC Take 1 tablet by mouth once daily. omeprazole 40 mg capsule Commonly known as: PriLOSEC TAKE 1 CAPSULE BY MOUTH NEEDED polyethylene glycol 3350 17 gram/dose powder Commonly known as: MIRALAX Take 17 g by mouth twice daily. reduced the dose or stop if you get diarrhea and restart after 48 hours to maintain 'at least' once a day bowel movement. Dissolve dose in 4 - 8 ounces of liquid and take as directed. sucralfate 1 gram tablet Commonly known as: CARAFATE Take 1 tablet by mouth four times daily. topiramate 100 mg tablet Commonly known as: TOPAMAX Zinc Gluconate 50 mg tablet Take 1 tablet by mouth once daily. You might also be taking other medications not listed above. If you have questions about any of your other medications, talk to the person who prescribed them or your Primary Care Provider. STOP taking these medications traMADol 50 mg tablet Commonly known as: MIKE Nsah Arden PAGER: [id number] November 13, 2022 10:05 [facility] NoteHNO ID: [id number] Author: Pallavi Harris MD Service: General Surgery Author Type: Resident Type: Progress Notes Filed: 11/12/2022 8:24 AM Note Text: GENERAL SURGERY PROGRESS NOTE Service Date: November 12, 2022 Subjective: No acute events overnight. Pain well controlled. Mild nausea at baseline no vomiting. No gas/BM Physical Exam: BP 140/80 Pulse 63 Temp (Src) 97.5 (Oral) Resp 16 Ht 5' 6 (1.68m) Wt 189 lb 3.2 oz (85.8kg) SpO2 100% LMP 08/19/2020 BMI 30.55 kg/(m2). O2 Therapy: Room Air GENERAL: awake; alert and oriented; no acute distress LUNGS: non-labored breathing , no shortness of breath CARDIAC: warm and well perfused throughout ABDOMEN: soft, non tender, non distended, incisions dry and clean, packing removed, dressing placed NEURO: no gross focal neurologic deficits EXT: no lower extremity edema Labs: CBC, BMP, MG, PHOS Recent Labs 11/12/22 0443 11/06/22 0557 11/05/22 1052 11/04/22 1202 10/28/22 0506 10/27/22 0513 10/26/22 0536 10/25/22 0806 12/31/20 1440 12/25/20 0356 WBC 9.59 3.98 5.22 6.69 4.62 3.53* 3.44* 3.78 < > 4.40 HB 12.8 11.4* 13.3 13.6 10.9* 10.9* 11.1* 13.1 < > 11.8 HCT 36.9 34.5* 40.5 40.5 33.4* 33.6* 34.9* 39.5 < > 36.4 PLT 253 225 207 313 174 160 181 208 < > 282 NA 136 140 141 137 138 140 139 138 < > 140 K 4.2 3.9 3.5* 3.7 4.1 4.1 4.2 3.8 < > 3.6* CHLOR 104 108* 107* 105 108* 110* 110* 106* < > 105 CO2 20* 24 22 19* 21* 22 20* 22 < > 26 BUN 8 8 9 9 7 5* 5* 7 < > 4* CREAT 0.62 0.74 0.87 0.77 0.76 0.70 0.73 0.82 < > 0.76 GLUC 102* 82 87 224* 84 89 83 85 < > 84 CA 8.8 8.6 8.6 9.1 8.3* 8.1* 8.3* 8.8 < > 9.1 MG -- -- -- -- 1.9 1.9 1.9 1.9 < > 1.9 P -- -- -- -- 3.2 3.1 4.3 -- -- 4.2 < > = values in this interval not displayed. Liver Function, Amylase, AND Lipase Recent Labs 11/05/22 1052 11/04/22 1202 10/28/22 0506 10/27/22 0513 06/24/22 0858 06/20/22 1222 04/07/20 0527 04/06/20 0536 02/04/20 0725 02/03/20 1458 02/03/20 0032 TPROT 6.6 6.9 5.2* 5.0* < > -- < > 6.6 < > 6.5 -- ALB 4.2 4.3 3.2* 3.3* < > -- < > 4.1 < > 4.1 -- ALT 15 16 11 14 < > -- < > 20 < > 12 -- AST 26 25 23 28 < > -- < > 29 < > 21 -- ALKPHOS 71 69 54 52 < > -- < > 59 < > 52 -- TBILI 0.4 0.3 0.3 0.2 < > -- < > 0.4 < > 0.3 -- LACT -- -- -- -- -- 0.9 -- 0.8 -- 0.9 0.83 < > = values in this interval not displayed. Coags Recent Labs 04/05/20 1514 04/05/20 1400 APTT 27.2 -- INR 1.0 1.0 Cardiac Enzymes Intake and Output: Date 11/11/22 0700 - 11/12/22 0659 11/12/22 0700 - 11/13/22 0659 Shift 6438-3213 8234-4606 5297-5819 24 Hour Total 7288-9896 8576-5408 4648-4162 24 Hour Total INTAKE PO 480 480 PO 480 480 IV 5520 719 2936 Volume (mL) (metroNIDAZOLE iv piggyback 500 mg in NaCl (iso-osmotic) 100 mL (FLAGYL)) 100 100 Volume (mL) (magnesium sulfate 2 g in NaCl 0.9% 100 mL) 100 100 Volume (mL) (lactated ringers iv infusion) 1500 1500 Volume (mL) (lactated ringers iv infusion) 406 406 Shift Total 2243 517 3535 OUTPUT Urine 600 600 Void (ml) 600 600 Shift Total 600 600 Weight (kg) 85.8 85.8 85.8 85.8 85.8 85.8 85.8 Current Medications: Current Facility-Administered Medications Medication Dose Route Frequency mirtazapine 15 mg (REMERON) 15 mg ORAL AT BEDTIME busPIRone 10 mg tab(s) (BUSPAR) 10 mg ORAL BID topiramate 100 mg tab(s) (TOPAMAX) 100 mg ORAL BID hydrOXYzine HCl 25 mg tab(s) (ATARAX) 25 mg ORAL q 8 H PRN NIFEdipine ER 30 mg tab(s) (PROCARDIA XL) 30 mg ORAL DAILY linaclotide 145 mcg cap(s) (LINZESS) 145 mcg ORAL DAILY (6 AM) metoclopramide HCl 5 mg tab(s) (REGLAN) 5 mg ORAL AC and HS docusate sodium 100 mg cap(s) (COLACE) 100 mg ORAL BID escitalopram oxalate 20 mg tab(s) (LEXAPRO) 20 mg ORAL DAILY levothyroxine 100 mcg tab(s) (SYNTHROID) 100 mcg ORAL DAILY liothyronine 5 mcg tab(s) (CYTOMEL) 5 mcg ORAL DAILY lactated ringers iv infusion 50 mL/hr INTRAVENOUS CONTINUOUS ondansetron (PF) 4 mg injection (ZOFRAN) 4 mg INTRAVENOUS q 6 H PRN acetaminophen 1,000 mg tab(s) (TYLENOL) 1,000 mg ORAL q 6 H NaCl 0.9% iv flush bag 20 mL INTRAVENOUS PRN oxyCODONE IR 5-10 mg tab(s) (ROXICODONE) 5-10 mg ORAL q 4 H PRN influenza vaccine qs 60 mcg (Patients 6 months to 64 years) 0.5 mL injection (FLUZONE ) 0.5 mL INTRAMUSCULAR ONCE (IMMUNIZATION) pantoprazole DR 40 mg tab(s) (PROTONIX) 40 mg ORAL DAILY (6 AM) prochlorperazine 10 mg injection (COMPAZINE) 10 mg INTRAVENOUS q 6 H PRN Assessment: is a 32 year old female with PMH of IBS, generalized anxiety disorder, hypothyroidism and past surgical history of cholecystectomy, appendectomy, Tan-en-Y bariatric surgery in 01/2022 s/p lap assisted ERCP Plan: -Neuro: Continue multimodal pain management. -CV: monitor vitals; -R: Recommend incentive spirometer and pulmonary hygiene -FEN-GI: GIS. Zofran prn, -Renal: strict I/Os, replete electrolytes prn No indication for antibiotics -Heme: Monitor h/h -End (more content not included)...[id number] NoteHNO ID: [id number] Author: Diana Mott APRN.THOMAS Service: ? Author Type: Nurse Smokehouse Worker Type: Anesthesia Procedure Notes Filed: 11/11/2022 3:25 PM Note Text: ANESTHESIOLOGY PROCEDURE NOTE Airway General Information Procedure Start Time/Medication Administration: 11/11/2022 3:16 PM Patient location during procedure: OR Timeout Performed Pre-procedure: timeout performed Consent Obtained: Yes Patient identity confirmed: arm band Staffing CREDIT UNION EXAMINER: Diana Mott APRN.CREDIT UNION EXAMINER Indications and Patient Condition Indications for airway management: anesthesia Preoxygenated: yes anesthesia circuit Method: sleep Difficult Mask: No Final Airway Details Final airway type: endotracheal airway Final Endotracheal Airway: ETT Cuffed: yes Successful intubation technique: video laryngoscopy Devices used: [employer] Endotracheal tube insertion site: oral Blade size: #3 ETT size (mm): 7.0 Measured from: lips Measurement (cm): 21 Placement verified by: capnometry Cormack-Lehane Classification: grade IIa - partial view of glottis Number of attempts at approach: 1 Airway not difficult SIGNATURE: Diana Mott APRN.CRNA PATIENT NAME: Abbey Garcia DATE: November 11, 2022 TIME: 3:24 PM CSN: [id number] History of Past illness Narrative* Problem Noted Date Diagnosed Date Resolved Date 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 Nausea and vomiting 10/25/2022 10/29/19 Last Assessment & Plan: See above Intractable nausea and vomiting 06/20/2022 06/23/2022 Acute abdominal pain 12/21/2020 023 Obesity 09/03/2020 11/29/2020 Abdominal pain 02/01/2020 04/08/2020 Moderate episode of recurren t major depressive disorder 11/21/2019 01/03/2020 Obesity, Class II, BMI 35-39.9 10/13/2019 11/29/2020 Last Assessment & Plan: Assessment: BMI 38.74 documented as of this encounter (statuses as of 11/17/2022) [facility] History of Past illness Narrative* Problem Noted Date Diagnosed Date Resolved Date 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 Nausea and vomiting 10/25/2022 10/29/19 Last Assessment & Plan: See above Intractable nausea and vomiting 06/20/2022 06/23/2022 Acute abdominal pain 12/21/2020 023 Obesity 09/03/2020 11/29/2020 Abdominal pain 02/01/2020 04/08/2020 Moderate episode of recurren t major depressive disorder 11/21/2019 01/03/2020 Obesity, Class II, BMI 35-39.9 10/13/2019 11/29/2020 Last Assessment & Plan: Assessment: BMI 38.74 documented as of this encounter (statuses as of 11/18/2022) [facility] History of Past illness Narrative* Problem Noted Date Diagnosed Date Resolved Date 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 Nausea and vomiting 10/25/2022 10/29/19 Last Assessment & Plan: See above Intractable nausea and vomiting 06/20/2022 06/23/2022 Acute abdominal pain 12/21/2020 023 Obesity 09/03/2020 11/29/2020 Abdominal pain 02/01/2020 04/08/2020 Moderate episode of recurren t major depressive disorder 11/21/2019 01/03/2020 Obesity, Class II, BMI 35-39.9 10/13/2019 11/29/2020 Last Assessment & Plan: Assessment: BMI 38.74 documented as of this encounter (statuses as of 11/21/2022) [facility] History of Past illness Narrative* Problem Noted Date Diagnosed Date Resolved Date 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 Intractable nausea and vomiting 06/20/2022 06/23/2022 Acute abdominal pain 12/21/2020 023 Obesity 09/03/2020 11/29/2020 Abdominal pain 02/01/2020 04/08/2020 Moderate episode of recurren t major depressive disorder 11/21/2019 01/03/2020 Obesity, Class II, BMI 35-39.9 10/13/2019 11/29/2020 Last Assessment & Plan: Assessment: BMI 38.74 documented as of this encounter (statuses as of 11/24/2022) [facility] History of Past illness Narrative* Problem Noted Date Diagnosed Date Resolved Date 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 Intractable nausea and vomiting 06/20/2022 06/23/2022 Acute abdominal pain 12/21/2020 023 Obesity 09/03/2020 11/29/2020 Abdominal pain 02/01/2020 04/08/2020 Moderate episode of recurren t major depressive disorder 11/21/2019 01/03/2020 Obesity, Class II, BMI 35-39.9 10/13/2019 11/29/2020 Last Assessment & Plan: Assessment: BMI 38.74 documented as of this encounter (statuses as of 11/25/2022) [facility] History of Past illness Narrative* Problem Noted Date Diagnosed Date Resolved Date 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 Intractable nausea and vomiting 06/20/2022 06/23/2022 Acute abdominal pain 12/21/2020 023 Obesity 09/03/2020 11/29/2020 Abdominal pain 02/01/2020 04/08/2020 Moderate episode of recurren t major depressive disorder 11/21/2019 01/03/2020 Obesity, Class II, BMI 35-39.9 10/13/2019 11/29/2020 Last Assessment & Plan: Assessment: BMI 38.74 documented as of this encounter (statuses as of 11/27/2022) [facility] History of Past illness Narrative* Problem Noted Date Diagnosed Date Resolved Date 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 Intractable nausea and vomiting 06/20/2022 06/23/2022 Acute abdominal pain 12/21/2020 023 Obesity 09/03/2020 11/29/2020 Abdominal pain 02/01/2020 04/08/2020 Moderate episode of recurren t major depressive disorder 11/21/2019 01/03/2020 Obesity, Class II, BMI 35-39.9 10/13/2019 11/29/2020 Last Assessment & Plan: Assessment: BMI 38.74 documented as of this encounter (statuses as of 12/02/2022) [facility] History of Past illness Narrative* Problem Noted Date Diagnosed Date Resolved Date 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 Intractable nausea and vomiting 06/20/2022 06/23/2022 Acute abdominal pain 12/21/2020 023 Obesity 09/03/2020 11/29/2020 Abdominal pain 02/01/2020 04/08/2020 Moderate episode of recurren t major depressive disorder 11/21/2019 01/03/2020 Obesity, Class II, BMI 35-39.9 10/13/2019 11/29/2020 Last Assessment & Plan: Assessment: BMI 38.74 documented as of this encounter (statuses as of 12/03/2022) [facility] History of Past illness Narrative* Problem Noted Date Diagnosed Date Resolved Date 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 Intractable nausea and vomiting 06/20/2022 06/23/2022 Acute abdominal pain 12/21/2020 023 Obesity 09/03/2020 11/29/2020 Abdominal pain 02/01/2020 04/08/2020 Moderate episode of recurren t major depressive disorder 11/21/2019 01/03/2020 Obesity, Class II, BMI 35-39.9 10/13/2019 11/29/2020 Last Assessment & Plan: Assessment: BMI 38.74 documented as of this encounter (statuses as of 12/15/2022) [facility] of [facility] illness Narrative* Problem Noted Date Diagnosed Date Resolved Date 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 Intractable nausea and vomiting 06/20/2022 06/23/2022 Acute abdominal pain 12/21/2020 023 Obesity 09/03/2020 11/29/2020 Abdominal pain 02/01/2020 04/08/2020 Moderate episode of recurren t major depressive disorder 11/21/2019 01/03/2020 Obesity, Class II, BMI 35-39.9 10/13/2019 11/29/2020 Last Assessment & Plan: Assessment: BMI 38.74 documented as of this encounter (statuses as of 12/15/2022) [facility] History of Past illness Narrative* Problem Noted Date Diagnosed Date Resolved Date 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 Intractable nausea and vomiting 06/20/2022 06/23/2022 Acute abdominal pain 12/21/2020 023 Obesity 09/03/2020 11/29/2020 Abdominal pain 02/01/2020 04/08/2020 Moderate episode of recurren t major depressive disorder 11/21/2019 01/03/2020 Obesity, Class II, BMI 35-39.9 10/13/2019 11/29/2020 Last Assessment & Plan: Assessment: BMI 38.74 documented as of this encounter (statuses as of 12/17/2022) [facility] History of Past illness Narrative* Problem Noted Date Diagnosed Date Resolved Date 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 Intractable nausea and vomiting 06/20/2022 06/23/2022 Acute abdominal pain 12/21/2020 023 Obesity 09/03/2020 11/29/2020 Abdominal pain 02/01/2020 04/08/2020 Moderate episode of recurren t major depressive disorder 11/21/2019 01/03/2020 Obesity, Class II, BMI 35-39.9 10/13/2019 11/29/2020 Last Assessment & Plan: Assessment: BMI 38.74 documented as of this encounter (statuses as of 12/31/2022) [facility] History of Past illness Narrative* Problem Noted Date Diagnosed Date Resolved Date 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 Intractable nausea and vomiting 06/20/2022 06/23/2022 Acute abdominal pain 12/21/2020 023 Obesity 09/03/2020 11/29/2020 Abdominal pain 02/01/2020 04/08/2020 Moderate episode of recurren t major depressive disorder 11/21/2019 01/03/2020 Obesity, Class II, BMI 35-39.9 10/13/2019 11/29/2020 Last Assessment & Plan: Assessment: BMI 38.74 documented as of this encounter (statuses as of 01/06/2023) [facility] History of Past illness Narrative* Problem Noted Date Diagnosed Date Resolved Date 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 Intractable nausea and vomiting 06/20/2022 06/23/2022 Acute abdominal pain 12/21/2020 023 Obesity 09/03/2020 11/29/2020 Abdominal pain 02/01/2020 04/08/2020 Moderate episode of recurren t major depressive disorder 11/21/2019 01/03/2020 Obesity, Class II, BMI 35-39.9 10/13/2019 11/29/2020 Last Assessment & Plan: Assessment: BMI 38.74 documented as of this encounter (statuses as of 01/08/2023) [facility] History of Past illness Narrative* Problem Noted Date Diagnosed Date Resolved Date 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 Intractable nausea and vomiting 06/20/2022 06/23/2022 Acute abdominal pain 12/21/2020 023 Obesity 09/03/2020 11/29/2020 Abdominal pain 02/01/2020 04/08/2020 Moderate episode of recurren t major depressive disorder 11/21/2019 01/03/2020 Obesity, Class II, BMI 35-39.9 10/13/2019 11/29/2020 Last Assessment & Plan: Assessment: BMI 38.74 documented as of this encounter (statuses as of 01/11/2023) [facility] of Past illness Narrative* Problem Noted Date Diagnosed Date Resolved Date 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 Intractable nausea and vomiting 06/20/2022 06/23/2022 Acute abdominal pain 12/21/2020 023 Obesity 09/03/2020 11/29/2020 Abdominal pain 02/01/2020 04/08/2020 Moderate episode of recurren t major depressive disorder 11/21/2019 01/03/2020 Obesity, Class II, BMI 35-39.9 10/13/2019 11/29/2020 Last Assessment & Plan: Assessment: BMI 38.74 documented as of this encounter (statuses as of 01/11/2023) [facility] of Past illness Narrative* Problem Noted Date Diagnosed Date Resolved Date 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 Intractable nausea and vomiting 06/20/2022 06/23/2022 Acute abdominal pain 12/21/2020 023 Obesity 09/03/2020 11/29/2020 Abdominal pain 02/01/2020 04/08/2020 Moderate episode of recurren t major depressive disorder 11/21/2019 01/03/2020 Obesity, Class II, BMI 35-39.9 10/13/2019 11/29/2020 Last Assessment & Plan: Assessment: BMI 38.74 documented as of this encounter (statuses as of 01/12/2023) [facility] History of Past illness Narrative* Problem Noted Date Diagnosed Date Resolved Date 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 Intractable nausea and vomiting 06/20/2022 06/23/2022 Acute abdominal pain 12/21/2020 023 Obesity 09/03/2020 11/29/2020 Abdominal pain 02/01/2020 04/08/2020 Moderate episode of recurren t major depressive disorder 11/21/2019 01/03/2020 Obesity, Class II, BMI 35-39.9 10/13/2019 11/29/2020 Last Assessment & Plan: Assessment: BMI 38.74 documented as of this encounter (statuses as of 01/18/2023) [facility] History of Past illness Narrative* Problem Noted Date Diagnosed Date Resolved Date 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 Intractable nausea and vomiting 06/20/2022 06/23/2022 Acute abdominal pain 12/21/2020 023 Obesity 09/03/2020 11/29/2020 Abdominal pain 02/01/2020 04/08/2020 Moderate episode of recurren t major depressive disorder 11/21/2019 01/03/2020 Obesity, Class II, BMI 35-39.9 10/13/2019 11/29/2020 Last Assessment & Plan: Assessment: BMI 38.74 documented as of this encounter (statuses as of 01/18/2023) [facility]Select [facility] Miscellaneous Notes* Telephone Encounter - Li Kimball RN - 11/09/2022 4:40 PM EDT Patient notified that surgery has to be moved to Wednesday as gastroenterology is no longer available to assist. I encouraged the patient to come to [place] ED if pain worsens or she develops an newor other concerning symptoms. Patient stated understanding and had no further questions. Li Kimball RN documented in this encounterOhiohealth O'[facility]09-23-2023 NoteHNO ID: [id number] Author: Ramona Stoddard APRN.OBGYN HOSPITALIST PHYSICIAN Service: General Internal Medicine Author Type: Nurse Practitioner Type: Progress Notes Filed: 11/07/2022 11:18 AM Note Text: DEPARTMENT OF HOSPITAL MEDICINE PROGRESS NOTE SERVICE DATE: 11/07/2022 SERVICE TIME: 11:13 AM Hospital Medicine/Primary Attending: Xochilt Murillo MD NIGHT AND WEEKEND COVERAGE: GALLATIN COVERAGE: Days: [phone], please contact via Can'tWait [employer] Nights: [phone] - floor: please page Hospitalist night cover [phone] - 4th floor: please page Hospitalist night cover [phone] - 5th floor: please page Hospitalist night cover [phone] Subjective INTERVAL HPI: pt still not able to tolerate clear liquids, just small amounts. Still having nausea and abd pain. Moving bowels. Current Facility-Administered Medications Medication Dose Route Frequency pantoprazole DR 40 mg tab(s) (PROTONIX) 40 mg ORAL DAILY (6 AM) levothyroxine 100 mcg tab(s) (SYNTHROID) 100 mcg ORAL DAILY escitalopram oxalate 20 mg tab(s) (LEXAPRO) 20 mg ORAL DAILY NaCl 0.9% iv flush bag 20 mL INTRAVENOUS PRN busPIRone 10 mg tab(s) (BUSPAR) 10 mg ORAL BID liothyronine 5 mcg tab(s) (CYTOMEL) 5 mcg ORAL DAILY (7 AM) polyethylene glycol 3350 34 g packet 34 g ORAL DAILY ferric gluconate 125 mg in NaCl 0.9% 100 mL (FERRLECIT) 125 mg INTRAVENOUS DAILY AT 6 PM NIFEdipine XL 30 mg tab(s) (ADALAT CC) 30 mg ORAL DAILY amitriptyline 10 mg tab(s) (ELAVIL) 10 mg ORAL AT BEDTIME scopolamine 1 mg over 3 days 1 Patch (TRANSDERM-SCOP) 1 Patch TRANSDERMAL ONCE And scopolamine - REMOVE PATCH OTHER ONCE And scopolamine - VERIFY patch OTHER q 8 H acetaminophen 650 mg tab(s) (TYLENOL) 650 mg ORAL q 6 H PRN traMADol 50 mg tab(s) (ULTRAM) 50 mg ORAL q 6 H PRN Objective PHYSICAL EXAM: BP 119/67 Pulse 65 Temp (Src) 97.5 (Oral) Resp 13 Ht 5' 6 (1.68m) Wt 188 lb 4.4 oz (85.4kg) SpO2 100% LMP 08/19/2020 BMI 30.40 kg/(m2). O2 Therapy: Room Air Physical Exam Performed GENERAL: Alert, no distress, cooperative SKIN: Skin color, texture, turgor normal. No rashes or lesions. HEAD/SINUSES: No significant findings EYES: PERRLA LUNGS: Lungs clear to auscultation, Good diaphragmatic excursion CARDIAC: Normal S1 and S2; no rubs, murmurs, or gallops ABDOMEN: soft, bs x4, tender to palpation EXTREMITIES: Extremities normal, no deformities, edema, clubbing or skin discoloration. Good capillary refill., No ulcers NEURO: Gait normal. Reflexes normal and symmetric. Sensation grossly intact, Cranial nerves II-XII intact PULSES: 2+ radial, 2+ carotid Lines, Drains, and Airways Line Duration Peripheral 11/06/22 1900 [facility] Right Forearm 20 Gauge <1 day Reviewed lines and needs to be continued: REASONS: Intravenous fluids DATA: Diagnostic tests reviewed for today's visit: Most recent labs Most recent imaging Most recent EKG Assessment/Plan Problem List Dysfunction of sphincter of Oddi (POA: Yes) Nausea (POA: Yes) GERD (gastroesophageal reflux disease) (POA: Yes) Hypothyroid (POA: Yes) ARSALAN (generalized anxiety disorder) (POA: Yes) Moderate recurrent major depression (HCC) (POA: Yes) Right upper quadrant abdominal pain (POA: Yes) H/O gastric bypass (POA: Yes) HOSPITAL COURSE: 32 year old female with past medical history of IBS, generalized anxiety disorder, hypothyroidism and past surgical history of cholecystectomy, appendectomy, Tan-en-Y bariatric surgery in January 2022 who presented to the ED with intractable right upper quadrant pain, nausea/vomiting. Patient states that her symptoms started about 2 weeks ago when she was getting right upper quadrant pain radiating to right shoulder after food which gradually gets worse to the point that right now the pain is constant and whenever she eats or drinks it gets much worse. 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 Here for management. Principal Problem: Oddi sphincter dysfunction Right upper quadrant abdominal pain H/O gastric bypass Nausea IV fluids off, attempting po diet Clear liquids and advance diet Nifedipine to relax sphincter until she sees specialist as outpatient Changed her mirtazapine to amitriptyline as it has shown to improve spasm of the sphincter too. Patient explained of the plan and she agrees. Plan on DC Wednesday if she tolerates clear liquids. GI signed off. Follow up should be with Dr. Kat. Follow up order is in. GERD (gastroesophageal reflux disease) PP on board Hypothyroid Keeping same regimen. ARSALAN (generalized anxiety disorder) Moderate recurrent major depression (HCC) Buspar/lexapro and changing mirtazapine to amitriptyline as above. Iron deficiency IV iron while inpatient Medication and Non-Pharmacologic VTE Prophylaxis/Anticoagulants 11/05/22 1300 activity - mobilize patient (tn,ia) VTE Prophylaxis: VTE prophylaxis appropriate Disposition: Home Plan of care discussed wi (more content not included)...[id number] Miscellaneous Notes* Telephone Encounter - Li Kimball RN - 11/06/2022 5:[address] Kat notified of HIDA scan results and patient current condition. Tentative surgery for 11/11/2022 pending GI availability. Patient notified of possible surgery for next week if nothing is completed over the weekend. Li Kimball RN * Telephone Encounter - Li Kimball RN - 11/06/2022 9:32 AM EDT Patient called and states she is unable to even tolerate ice chips, develops intense pain within 10-15 minutes. Patient remains admitted to [facility] and is scheduled for a HIDA scan at 10:30am today. Patient expressed frustratin that she may be discharged and unable to eat or drink, knowing she will end up in the ER again this weekend. I encouraged the patient to continue to keep open communication with the hospital staff concerning her concerns and symptoms and that is os okay to advocatefor herself. Patient stated understanding and had no further questions. Li Kimball RN documented in this encounterOhiohealth O'[facility]len[facility]09-22-2023 NoteHNO ID: [id number] Author: Jean Valdivia MD Service: Hospital Medicine Author Type: Physician Type: Progress Notes Filed: 11/06/2022 2:13 PM Note Text: DEPARTMENT OF HOSPITAL MEDICINE PROGRESS NOTE SERVICE DATE: 11/06/2022 SERVICE TIME: 12:49 PM Hospital Medicine/Primary Attending: Jean Valdivia MD NIGHT AND WEEKEND COVERAGE: GALLATIN COVERAGE: Days: [phone], please contact via Can'tWait [employer] Nights: [phone] - floor: please page Hospitalist night cover [phone] - 4th floor: please page Hospitalist night cover [phone] - 5th floor: please page Hospitalist night cover [phone] Subjective INTERVAL HPI: patient very symptomatic with abdominal cramping. Came back from [facility] with dx of oddi sphincter dysfunction. Current Facility-Administered Medications Medication Dose Route Frequency mirtazapine 15 mg (REMERON) 15 mg ORAL AT BEDTIME pantoprazole DR 40 mg tab(s) (PROTONIX) 40 mg ORAL DAILY (6 AM) levothyroxine 100 mcg tab(s) (SYNTHROID) 100 mcg ORAL DAILY escitalopram oxalate 20 mg tab(s) (LEXAPRO) 20 mg ORAL DAILY NaCl 0.9% iv flush bag 20 mL INTRAVENOUS PRN lactated ringers iv infusion 100 mL/hr INTRAVENOUS CONTINUOUS busPIRone 10 mg tab(s) (BUSPAR) 10 mg ORAL BID liothyronine 5 mcg tab(s) (CYTOMEL) 5 mcg ORAL DAILY (7 AM) traMADol 50 mg tab(s) (ULTRAM) 50 mg ORAL q 4 H PRN acetaminophen 650 mg tab(s) (TYLENOL) 650 mg ORAL q 6 H PRN metoclopramide HCl 10 mg (REGLAN) 10 mg ORAL AC and HS polyethylene glycol 3350 34 g packet 34 g ORAL DAILY ferric gluconate 125 mg in NaCl 0.9% 100 mL (FERRLECIT) 125 mg INTRAVENOUS DAILY AT 6 PM Objective PHYSICAL EXAM: BP 137/81 Pulse 58 Temp (Src) 97.7 (Oral) Resp 18 Ht 5' 6 (1.68m) Wt 188 lb 4.4 oz (85.4kg) SpO2 100% LMP 08/19/2020 BMI 30.40 kg/(m2). O2 Therapy: Room Air Physical Exam Performed Awake, alert mucosa moist, lungs clear to auscultation cardiac sounds rrr abdomen soft mildly tender not distended bs ok. No rebound. Motor 5/5 upper and lower. No leg edema. Lines, Drains, and Airways Line Duration Peripheral 11/05/22 1512 [facility] Right Forearm 22 Gauge <1 day Peripheral 11/05/22 1513 [facility] Left Forearm 20 Gauge <1 day Reviewed lines and needs to be continued: REASONS: Intravenous fluids DATA: Diagnostic tests reviewed for today's visit: Most recent labs Most recent imaging Assessment/Plan Problem List Right upper quadrant abdominal pain (POA: Yes) Nausea (POA: Yes) GERD (gastroesophageal reflux disease) (POA: Yes) Hypothyroid (POA: Yes) ARSALAN (generalized anxiety disorder) (POA: Yes) Moderate recurrent major depression (HCC) (POA: Yes) H/O gastric bypass (POA: Yes) HOSPITAL COURSE: 32 year old female with past medical history of IBS, generalized anxiety disorder, hypothyroidism and past surgical history of cholecystectomy, appendectomy, Tan-en-Y bariatric surgery in January 2022 who presented to the ED with intractable right upper quadrant pain, nausea/vomiting. Patient states that her symptoms started about 2 weeks ago when she was getting right upper quadrant pain radiating to right shoulder after food which gradually gets worse to the point that right now the pain is constant and whenever she eats or drinks it gets much worse. 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 Here for management. Principal Problem: Oddi sphincter dysfunction Right upper quadrant abdominal pain H/O gastric bypass Nausea IV fluids for now Clear liquids and advance diet Nifedipine to relax sphincter until she sees specialist as outpatient Changed her mirtazapine to amitriptyline as it has shown to improve spasm of the sphincter too. Patient explained of the plan and she agrees. Plan on DC tomorrow if she tolerates clear liquids. GI signed off. Follow up should be with Dr. Kat. Follow up order is in. GERD (gastroesophageal reflux disease) PP on board Hypothyroid Keeping same regimen. ARSALAN (generalized anxiety disorder) Moderate recurrent major depression (HCC) Buspar/lexapro and changing mirtazapine to amitriptyline as above. Iron deficiency IV iron while inpatient. Medication and Non-Pharmacologic VTE Prophylaxis/Anticoagulants 11/05/22 1300 activity - mobilize patient (tn,oh) VTE Prophylaxis: VTE prophylaxis appropriate Disposition: Home/possible dc tomorrow if good oral intake. Plan of care discussed with Provider, RN, Patient Plan communicated to: N/A SIGNATURE: Jean Valdivia MD PATIENT NAME: Abbey Garcia DATE: November 06, 2022 TIME: 12:49 [id number] NoteHNO ID: [id number] Author: Agustin Sheets RT(R) Service: ? Author Type: Technologist Type: Progress Notes Filed: 11/06/2022 10:55 AM Note Text: RADIOLOGY SERVICE PROGRESS NOTE SERVICE DATE: 11/06/2022 SERVICE TIME: 10:54 AM PATIENT IDENTITY VERIFICATION COMPLETED USING TWO (2) STANDARD IDENTIFIERS: Name and Date of confirmed by patient verbally FALL SCREENING: Has the patient had 2 falls in the last year or 1 fall with injury or currently using an Ambulatory Assistive Device (Walker, Cane, Wheelchair, Crutches, etc.)? No PATIENT GENDER DATA: .female : No ALLERGIES: Reviewed and unchanged MEDICATIONS REVIEWED: Yes PATIENT RELEVANT IMPLANT DATA REVIEWED: Not Applicable CREATININE: Creatinine Date Value Ref Range Status 11/06/2022 0.74 0.58 - 0.96 mg/dL Final 11/05/2022 0.87 0.58 - 0.96 mg/dL Final 11/04/2022 0.77 0.58 - 0.96 mg/dL Final Estimated Glomerular Filtration Rate Date Value Ref Range Status 11/06/2022 110 >=60 mL/min/1.73m? Final Comment: Estimated Glomerular Filtration Rate (eGFR) is calculated using the 2020 CKD-EPI creatinine equation. This equation utilizes serum creatinine, sex, and age as parameters. The creatinine assay has traceable calibration to isotope dilution-mass spectrometry. Refer to KDIGO guidelines for clinical interpretation. In patients with unstable renal function, e.g. those with acute kidney injury, the eGFR may not accurately reflect actual GFR. eGFR- Date Value Ref Range Status 03/18/2021 >60 Final P.O.C.T. RESULTS: N/A November 06, [address] PERFORMED: No IV SITE: Inpatient - refer to LDA documentation POST EXAM PIV STATUS: Inpatient see LDA documentation PROCEDURE TYPE: NM INJECT: Sphincter of Oddi study. 5.6 mCi Tc99m CHOLETEC. CCK pretreat 1.71 micrograms intravenous at 10:30. ADMINISTRATION TIME: 10:46 PATIENT DISCHARGED TO: Patient taken to IP transport area for return to RNF/ICU/ED. A Diagnostic radioactive procedure has taken place, with no further precautions necessary other than routine body substance precautions. More information regarding radiation safety can be found using this link: [email or web address] SIGNATURE: RT Oj(R) PATIENT NAME: Abbey Garcia DATE: November 06, 2022 TIME: 10:54 AM PAGER[facility]CONTACT [id number] History of Present illness Narrative* Agustin Sheets RT(R) - 11/06/2022 10:54 AM EDT RADIOLOGY SERVICE PROGRESS NOTE SERVICE DATE: 11/06/2022 SERVICE TIME: 10:54 AM PATIENT IDENTITY VERIFICATION COMPLETED USING TWO (2) STANDARD IDENTIFIERS: Name and Date of confirmed by patient verbally FALL SCREENING: Has the patient had 2 falls in the last year or 1 fall with injury or currently using an Ambulatory Assistive Device (Walker, Cane, Wheelchair, Crutches, etc.)? No PATIENT GENDER DATA: .female : No ALLERGIES: Reviewed and unchanged MEDICATIONS REVIEWED: Yes PATIENT RELEVANT IMPLANT DATA REVIEWED: Not Applicable CREATININE: Creatinine Date Value Ref Range Status 11/06/2022 0.74 0.58 - 0.96 mg/dL Final 11/05/2022 0.87 0.58 - 0.96 mg/dL Final 11/04/2022 0.77 0.58 - 0.96 mg/dL Final Estimated Glomerular Filtration Rate Date Value Ref Range Status 11/06/2022 110 >=60 mL/min/1.73m Final Comment: Estimated Glomerular Filtration Rate (eGFR) is calculated using the 2020 CKD-EPI creatinine equation. This equation utilizes serum creatinine, sex, and age as parameters. The creatinine assay has traceable calibration to isotope dilution- mass spectrometry. Refer to KDIGO guidelines for clinical interpretation. In patients with unstable renal function, e.g. those with acute kidney injury, the eGFRmay not accurately reflect actual GFR. eGFR- Date Value Ref Range Status 03/18/2021 >60 Final P.O.C.T. RESULTS: N/A November 06, [address] PERFORMED: No IV SITE: Inpatient - refer to LDA documentation POST EXAM PIV STATUS: Inpatient see LDA documentation PROCEDURE TYPE: NM INJECT: Sphincter of Oddi study. 5.6 mCi Tc99m CHOLETEC. CCK pretreat 1.71 micrograms intravenous at 10:30. ADMINISTRATION TIME: 10:46 PATIENT DISCHARGED TO: Patient taken to IP transport area for return to RNF/ICU/ED. A Diagnostic radioactive procedure has taken place, with no further precautions necessary other than routine body substance precautions. More information regarding radiation safety can be found usingthis link: [email or web address]%20Nuclear%20Medicine%[email or web address] SIGNATURE: RT Oj(Gregory) PATIENT NAME: Abbey Garcia DATE: November 06, 2022 TIME: 10:54 AM PAGER/CONTACT #: documented in this encounterOhiohealth O'[facility]09-20-2023 NoteSelect Medical [facility]-20-20[facility] History of Present illness Narrative* Deacon Kat MD - 11/04/2022 9:20 AM EDT ESTABLISHED PATIENT Abbey Garcia is a 32 year old female with RUQ pain INTERVAL HPI: Multiple ED visits for nausea, vomiting, back pain Admitted 10/25/2022-10/28/2022 for possible hypomotility . In my discussion with her she describes abdominal pain that is on the right-hand side only with a slight extension to the epigastrium. It is severe and spasmodic and is mostly occurring after she eats although there is some persistence when she is not eating. It has not been caused by or relieved by bowel function. It does radiate to the tip of her shoulder blade on the right- hand side. For the most part her bowel functions been normal over the last day she has had slightly looser bowel movements. She does feel dehydrated with decreased frequency of urination and severe fatigue from her nausea and vomiting. She had an upper endoscopy as described below which was normal as well as a CT abdomen pelvis which demonstrated some mild biliary dilation status post cholecystectomy. She has a remote cholecystectomy more than 5 years ago. On my personal review of her CT abdomen pelvis from oct 25 images her JJ anastomosis in the normallocation I do not see any inflammation around the GJ or around the right upper quadrant there are clips and evidence of prior cholecystectomy and there is mild CBD dilation, not a typical postcholecys tectomy. IMAGING UPDATE: 10/25/2022 CT ABD/PEL W IVCON IMPRESSION: No acute abdominal or pelvic process is identified. Multiple hepatic cysts. Subcentimeter, low-attenuation lesion seen within liver are too small to characterize but statistically relate to subcentimeter cysts. Evidence of prior gastric bypass surgery. No bowel obstruction. Moderate stool burden. Incidentally noted is a 3.4 cm left adnexal cyst RESULT: Liver: There are multiple hepatic cysts again seen. Additionally, there are subcentimeter, low-attenuation lesions again seen within the liver, which are too small to characterize but statistically relate to subcentimeter cysts. Biliary: The patient is status post cholecystectomy. Again seen is mild biliary dilation, likely related to the cholecystectomy. Spleen: No mass. No splenomegaly. Pancreas: There is no obvious focal discrete pancreatic mass or pancreatic ductal dilation. Adrenals: No mass. Kidneys: There is no hydronephrosis or perinephric fluid collection. GI tract: The patient is status post gastric bypass surgery. There are no dilated loops of bowel tosuggest obstruction. Status post appendectomy. Moderate stool burden. Lymph nodes: There is no abdominal lymphadenopathy. Mesentery/Peritoneum: No abdominal ascites. Retroperitoneum: No mass. Vasculature: There is no abdominal aortic aneurysm. Pelvis: Urinary bladder is distended. Multiple phleboliths are seen within the pelvis. Patient is status post hysterectomy. There is an approximately 3.4 x 2.9 cm left adnexal cyst (series 301, image#86). Prominent, less than 1 cm pelvic lymph nodes are likely reactive. Bones/Soft Tissues: There is no destructive bony lesion. Lower thorax: Mild dependent atelectasis. PERTINENT TESTIN10/27/2022 EGD Findings: The examined jejunum was normal. 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 The gastrojejunal anastomosis was characterized by healthy appearing mucosa. This was traversed. The lvjvm-cd-vokezlo limb was characterized by healthy appearing mucosa. A small amount of food (residue) was found in the stomach and jejunum. The exam of the stomach was otherwise normal. The Z-line was regular and was found 36 cm from the incisors. The examined esophagus was normal. Impression: - Normal examined jejunum. - Tan-en-Y gastrojejunostomy with gastrojejunal anastomosis characterized by healthy appearing mucosa. - A small amount of food (residue) in the stomach. - Z-line regular, 36 cm from the incisors. - Normal esophagus. - No specimens collected. - Consider hypomotility due to finding of food residue in stomach adn jejunum. Otherwise, no findings to explain symptoms LABS UPDATE: 11/02/2022 Ref Range & Units 1 d ago WBC (WHITE BLOOD COUNT) 3.6 - 11.0 10*3/uL 4.5 RBC 4.0 - 5.4 10*6/uL 4.25 HEMOGLOBIN (HGB) 12.0 - 16.0 G/DL 13.0 HEMATOCRIT (HCT) 36.0 - 48.0 % 38.8 MEAN CELL VOLUME 80.0 - 100.0 FL 91.2 Mean Cell HGB 26.0 - 35.0 PG 30.6 MEAN CELL HGB CONCENTRATION 27.0 - 37.0 G/DL 33.5 RBC DISTRIBUTION 11.5 - 14.5 % 14.8 High PLATELET COUNT 130 - 400 10*3/uL 234 MEAN PLATELET VOLUME 7.4 - 11.0 FL 9.9 DIFFERENTIAL TYPE % AUTO DIFF NEUTROPHILS 37.0 - 75.0 % 79.4 High LYMPHOCYTE 20.0 - 55.0 % 17.9 Low MONOCYTE % 0.0 - 10.0 % 2.3 EOSINOPHIL % 0.0 - 11.0 % 0.1 BASOPHIL % 0.0 - 2.0 % 0.3 Absolute Neutrophil Count 1.4 - 6.5 10*3/uL 3.6 LYMPHOCYTES, ABSOLUTE 1.2 - 3.4 10*3/uL 0.8 Low MONOCYTES, ABSOLUTE 0.0 - 0.7 10*3/uL 0.1 ABSOLUTE EOSINOPHIL COUNT 0.0 - 0.7 10*3/uL 0.0 ABSOLUTE BASOPHIL COUNT 0.0 - 0.2 10*3/uL 0.0 Ref Range & Units 1 d ago COLOR, URINE YELLOW YELLOW APPEARANCE, URINE CLEAR CLEAR Specific [place], Urine 1.010 - 1.025 1.020 PH URINE 5.0 - 7.0 8.5 High Urine Protein NEGATIVE mg/dl NEGATIVE GLUCOSE, URINE NEGATIVE mg/dl NEGATIVE KETONES, URINE NEGATIVE mg/dl NEGATIVE BILIRUBIN, URINE NEGATIVE NEGATIVE BLOOD, URINE DIPSTICK NEGATIVE NEGATIVE NITRITES, URINE NEGATIVE NEGATIVE UROBILINOGEN, URINE 0.2 - 1.0 E.U./dL 1.0 LEUKOCYTE ESTERASE, URINE NEGATIVE PHYSICAL EXAMINATION: BP 125/81 Pulse 82 Temp 36.6 C (97.8 F) Resp 18 Ht 167.6 cm (5' 5.98 ) Wt 83.5 kg (184 lb) LMP 08/19/2020 SpO2 98% BMI 29.71 kg/m General Appearance: worried, dry skin. Skin: Skin color, texture, turgor normal, no suspicious rashes or lesions, no jaundice Eyes - no jaundice . Abdomen: mild tenderness in RUQ. . IMPRESSION: Her symptoms are very similar to typical gallbladder symptoms and he states that they are exactly the same as the symptoms she had prior to her cholecystectomy that resolved after her cholecystectomy. She does have mild biliary dilation. She has had multiple LFTs that are normal. This somewhat decreases the chance but does not certainly exclude a primary duct stone nursing to review dysfunction. I have low suspicion for other intestinal causes for post gastrectomy causes for her pain given thepain is all on the right-hand side. PLAN: I plan to get a right upper quadrant ultrasound, HIDA with ejection fraction, amylase lipase liver function testing. Also because she is somewhat dehydrated we will try to arrange for some outpatientIV fluid if she does not seem to have a viral illness. I discussed with her that diagnosis of this can sometimes be exclusion and require an ERCP which in her case would need to have a laparoscopic access to be performed. Medical Decision Making: Problems: Moderate: New problem with uncertain prognosis Data: Unique test result(s) reviewed: 3+ Independent interpretation of test from other physician/QHCP Risk: Low: Low risk from testing/treatment Medical Decision Making Level: 4 - Moderate Deacon Kat MD documented in this encounterOhiohealth O'[facility]len[facility]09-18-2023 Miscellaneous Notes* Telephone Encounter - Haroon Seay APRN.CNP - 11/02/2022 3:24 PM EDT The following approved medication requests have been transmitted electronically. Requested Prescriptions Refused Prescriptions Disp Refills busPIRone (BUSPAR) 10 mg tablet 60 tablet 2 Sig: Take 5 mg (half tablet) twice daily for three days, then increase to 10 mg (full tablet) in the morning and 5 mg in the afternoon, then increase to 10 mg twice daily from there on Haroon Seay APRN.CNP documented in this encounterOhiohealth O'[facility]len[facility]09-18-2023 Emergency department Note * Dayanara Montnaa RN - 11/02/2022 11:55 AM EDT Pt states that her pain is getting worse along with her nausea [facility]09-18-2023 Emergency department Note* Dayanara Montana RN - 11/02/2022 11:55 AM EDT Pt states that her pain is getting worse along with her nausea * Dayanara Montana RN - 11/02/2022 11:44 AM EDT Pt requesting to use the restroom and wants assistance. Stand by assist given pt walk with a slow steady gait at this time without difficulty * Dimitri Walker MD - 11/02/2022 10:55 AM EDT DEPARTMENT OF EMERGENCY MEDICINE CHIEF COMPLAINT Abdominal Pain (Reports has been seen a couple of times with CT scans showing possible kidney stones near [facility], here today because hands turned brown) JANINE Garcia is a 32 y.o. female who presents with abdominal pain. Patient has had multiple weeks of abdominal pain. She has had multiple ER visits in [facility]. She had multiple CT scans with no acute findings. I am able to see those records. She had laboratory work performed 2 days ago which was unremarkable. She continues to have abdominal pain. She states she was over here for a family member's ENT appointment and so she decided to check into the emergency department. She has vomiting. No fever. She has had gastric bypass in the past. She has not seen her primary care provider or gastric surgeon. She is awaiting appointments with those providers. She states she did notice some brown spots on her hands this morning in his uncertain of the etiology. REVIEW OF SYSTEMS Review of Systems Constitutional: No fevers, no chills Eyes: No vision change, no drainage ENT: No ear pain, no sore throat Cardiovascular: No chest pain, no edema Respiratory: No shortness of breath, no cough Gastrointestinal: Positive vomiting, no diarrhea Genitourinary: No dysuria, no frequency Musculoskeletal: No joint pain, no joint swelling Integumentary: No rash, no itching Neurologic: No headache, no confusion Psychiatric: No anxiety, no depression PAST MEDICAL HISTORY Past Medical History: Diagnosis Date Hypothyroidism PCOS (polycystic ovarian syndrome) SURGICAL HISTORY Past Surgical History: Procedure Laterality Date HYSTERECTOMY 11/12/2020 GASTRIC BYPASS 09/03/2020 KNEE ARTHROSCOPY Right 08/07/2020 APPENDECTOMY SECTION CHOLECYSTECTOMY CURRENT MEDICATIONS Current Facility-Administered Medications Medication Dose Route Frequency Provider Last Rate Last Admin diphenhydrAMINE (BENADRYL) injection 50 mg 50 mg Intravenous Once Dimitri Walker MD Metoclopramide (REGLAN) injection 10 mg 10 mg Intravenous Once Dimitri Walker MD Sodium chloride 0.9% IV solution 2,000 mL 2,000 mL Intravenous Once Dimitri Walker MD Current Outpatient Medications Medication Sig Dispense Refill escitalopram 20 MG tablet Take 1 tablet by mouth daily. levothyroxine 100 MCG Tab tablet Take 1 tablet by mouth daily. Liothyronine Sodium (CYTOMEL PO) Take by mouth. metformin 500 MG Tab tablet Take 1,000 mg by mouth 2 times daily with meals. topiramate 25 MG tablet Take 25 mg by mouth 2 times daily. topiramate 50 MG tablet ALLERGIES Allergies Allergen Reactions Codeine And Related FAMILY HISTORY No family history on file. SOCIAL HISTORY Social History Socioeconomic History Marital status: Spouse name: Not on file Number of children: Not on file Years of education: Not on file Highest education level: Not on file Occupational History Not on file Tobacco Use Smoking status: Never Smokeless tobacco: Never Substance and Sexual Activity Alcohol use: No Drug use: No Sexual activity: Not on file Other Topics Concern Not on file Social History Narrative Not on file Social Determinants of Health Financial Resource Strain: Not on file Food Insecurity: Not on file Transportation Needs: Not on file Physical Activity: Not on file Stress: Not on file Social Connections: Not on file Intimate Partner Violence: Not on file Housing Stability: Not on file PHYSICAL EXAM BP 137/80 Pulse 88 Temp 98.3 F (36.8 C) (Oral) Resp 16 Wt 84.8 kg (187 lb) Comment: stand up scale triage room SpO2 98% BMI 30.18 kg/m Smoking Status Never Physical Exam The patient is well-developed, well-nourished, and in no acute distress. Head is atraumatic and normocephalic. Pupils are equal and reactive. Face is symmetric. Mucous membranes are moist. Neck is supple. Heart is regular rate and rhythm. Lungs are clear to auscultation. Abdomen is soft, nondistended. Diffuse tenderness. Skin is warm and dry. Patient has a couple small spots on her hands that appears most consistent with staining from an external source such as iodine. Extremities are warm and well perfused and without acute deformity. Neurologically, the patient is awake, alert, and without acute deficit. Psychiatrically, the patient is calm and cooperative. ED COURSE & MEDICAL DECISION MAKING Patient has a fairly extensive O[facility] report with numerous recent opiate prescriptions. Her labs today are unremarkable. I will write her prescriptions for nausea medications. She did receive nausea medications as well as 2 L of IV fluids here in the ER. I advised her to follow up with her gastric bypass surgeon. Dimitri Walker MD 11/02/22 1325 [facility]* Dayanara Montana RN - 11/02/2022 11:44 AM EDT Pt requesting to use the restroom and wants assistance. Stand by assist given pt walk with a slow steady gait at this time without difficulty [facility]09[facility]18[facility]23 Physician Emergency department Note* Dimitri Walker MD - 11/02/2022 10:55 AM EDT DEPARTMENT OF EMERGENCY MEDICINE CHIEF COMPLAINT Abdominal Pain (Reports has been seen a couple of times with CT scans showing possible kidney stones near [facility], here today because hands turned brown) JANINE Garcia is a 32 y.o. female who presents with abdominal pain. Patient has had multiple weeks of abdominal pain. She has had multiple ER visits in [facility]. She had multiple CT scans with no acute findings. I am able to see those records. She had laboratory work performed 2 days ago which was unremarkable. She continues to have abdominal pain. She states she was over here for a family member's ENT appointment and so she decided to check into the emergency department. She has vomiting. No fever. She has had gastric bypass in the past. She has not seen her primary care provider or gastric surgeon. She is awaiting appointments with those providers. She states she did notice some brown spots on her hands this morning in his uncertain of the etiology. REVIEW OF SYSTEMS Review of Systems Constitutional: No fevers, no chills Eyes: No vision change, no drainage ENT: No ear pain, no sore throat Cardiovascular: No chest pain, no edema Respiratory: No shortness of breath, no cough Gastrointestinal: Positive vomiting, no diarrhea Genitourinary: No dysuria, no frequency Musculoskeletal: No joint pain, no joint swelling Integumentary: No rash, no itching Neurologic: No headache, no confusion Psychiatric: No anxiety, no depression PAST MEDICAL HISTORY Past Medical History: Diagnosis Date Hypothyroidism PCOS (polycystic ovarian syndrome) SURGICAL HISTORY Past Surgical History: Procedure Laterality Date HYSTERECTOMY 11/12/2020 GASTRIC BYPASS 09/03/2020 KNEE ARTHROSCOPY Right 08/07/2020 APPENDECTOMY SECTION CHOLECYSTECTOMY CURRENT MEDICATIONS Current Facility-Administered Medications Medication Dose Route Frequency Provider Last Rate Last Admin diphenhydrAMINE (BENADRYL) injection 50 mg 50 mg Intravenous Once Dimitri Walker MD Metoclopramide (REGLAN) injection 10 mg 10 mg Intravenous Once Dimitri Walker MD Sodium chloride 0.9% IV solution 2,000 mL 2,000 mL Intravenous Once Dimitri Walker MD Current Outpatient Medications Medication Sig Dispense Refill escitalopram 20 MG tablet Take 1 tablet by mouth daily. levothyroxine 100 MCG Tab tablet Take 1 tablet by mouth daily. Liothyronine Sodium (CYTOMEL PO) Take by mouth. metformin 500 MG Tab tablet Take 1,000 mg by mouth 2 times daily with meals. topiramate 25 MG tablet Take 25 mg by mouth 2 times daily. topiramate 50 MG tablet ALLERGIES Allergies Allergen Reactions Codeine And Related FAMILY HISTORY No family history on file. SOCIAL HISTORY Social History Socioeconomic History Marital status: Spouse name: Not on file Number of children: Not on file Years of education: Not on file Highest education level: Not on file Occupational History Not on file Tobacco Use Smoking status: Never Smokeless tobacco: Never Substance and Sexual Activity Alcohol use: No Drug use: No Sexual activity: Not on file Other Topics Concern Not on file Social History Narrative Not on file Social Determinants of Health Financial Resource Strain: Not on file Food Insecurity: Not on file Transportation Needs: Not on file Physical Activity: Not on file Stress: Not on file Social Connections: Not on file Intimate Partner Violence: Not on file Housing Stability: Not on file PHYSICAL EXAM BP 137/80 Pulse 88 Temp 98.3 F (36.8 C) (Oral) Resp 16 Wt 84.8 kg (187 lb) Comment: stand up scale triage room SpO2 98% BMI 30.18 kg/m Smoking Status Never Physical Exam The patient is well-developed, well-nourished, and in no acute distress. Head is atraumatic and normocephalic. Pupils are equal and reactive. Face is symmetric. Mucous membranes are moist. Neck is supple. Heart is regular rate and rhythm. Lungs are clear to auscultation. Abdomen is soft, nondistended. Diffuse tenderness. Skin is warm and dry. Patient has a couple small spots on her hands that appears most consistent with staining from an external source such as iodine. Extremities are warm and well perfused and without acute deformity. Neurologically, the patient is awake, alert, and without acute deficit. Psychiatrically, the patient is calm and cooperative. ED COURSE & MEDICAL DECISION MAKING Patient has a fairly extensive OARRS report with numerous recent opiate prescriptions. Her labs today are unremarkable. I will write her prescriptions for nausea medications. She did receive nausea medications as well as 2 L of IV fluids here in the ER. I advised her to follow up with her gastric bypass surgeon. Dimitri Walker MD 11/02/22 1325 [facility] Hospital Discharge instructions* Discharge Instructions* Jalyn Suresh DO - 10/31/2022 8:37 AM EDT Recommend a prednisone and Flexeril as prescribed. Please make sure to take omeprazole along with your prednisone. If you have any stomach upset or burning in her chest taking the prednisone. Also recommend following up with your doctor in the next 3 to 4 days to see if an MRI of your spine might be necessary given your back pain with radiation down the right lower extremity. Also for your constipation I would recommend magnesium citrate or milk of mag. * Attachments The following attachments cannot be sent through Care Everywhere. * Back: Strain (Burmese) [facility] NoteHNO ID: [id number] Author: Rayna Coyle MD Service: Hospital Medicine Author Type: Physician Type: Progress Notes Filed: 10/27/2022 2:25 PM Note Text: DEPARTMENT OF HOSPITAL MEDICINE PROGRESS NOTE SERVICE DATE: 10/27/2022 SERVICE TIME: 1:54 PM Hospital Medicine/Primary Attending: Rayna Coyle MD NIGHT AND WEEKEND COVERAGE: EMILIA COVERAGE: Days: [phone], please contact via [employer] Nights: [phone] - floor: please page Hospitalist night cover [phone] - 4th floor: please page Hospitalist night cover [phone] - 5th floor: please page Hospitalist night cover [phone] Subjective INTERVAL HPI: Seen and examined at bedside. Patient states that she still has severe abdominal pain, stated that she attempted p.o. intake yesterday evening and did not go well. N.p.o. for EGD today Current Facility-Administered Medications Medication Dose Route Frequency liothyronine 5 mcg tab(s) (CYTOMEL) 5 mcg ORAL DAILY levothyroxine 100 mcg tab(s) (SYNTHROID) 100 mcg ORAL DAILY topiramate 100 mg tab(s) (TOPAMAX) 100 mg ORAL BID mirtazapine 15 mg (REMERON) 15 mg ORAL AT BEDTIME escitalopram oxalate 20 mg tab(s) (LEXAPRO) 20 mg ORAL DAILY sucralfate 1 g tab(s) (CARAFATE) 1 g ORAL QID acetaminophen 1,000 mg tab(s) (TYLENOL) 1,000 mg ORAL q 8 H hydrOXYzine HCl 25 mg tab(s) (ATARAX) 25 mg ORAL BID PRN ipratropium-albuterol 3 mL nebulizer solution (DUONEB) 3 mL INHALATION q 4 H PRN therapeutic multivitamin-minerals tablet (THERA-M PLUS) 1 tablet ORAL DAILY aluminum-magnesium hydroxide-simethicone 200-200-20 mg/5 mL 30 mL 30 mL ORAL q 6 H PRN NaCl 0.9% iv flush bag 20 mL INTRAVENOUS PRN NaCl 0.9% iv infusion 125 mL/hr INTRAVENOUS CONTINUOUS prochlorperazine 10 mg injection (COMPAZINE) 10 mg INTRAVENOUS q 6 H PRN albuterol 2.5 mg /3 mL (0.083 %) 2.5 mg (PROVENTIL) 2.5 mg INHALATION QID budesonide 0.5 mg/2 mL 0.5 mg (PULMICORT) 0.5 mg INHALATION BID pantoprazole 40 mg injection (PROTONIX) 40 mg INTRAVENOUS BID AC (0600/1600) polyethylene glycol 3350 34 g packet 34 g ORAL BID senna-docusate 8.6-50 mg 1 tablet (SENNA-S) 1 tablet ORAL BID ondansetron (PF) 4 mg injection (ZOFRAN) 4 mg INTRAVENOUS q 6 H PRN morphine 1 mg injection 1 mg INTRAVENOUS q 4 H PRN Objective PHYSICAL EXAM: BP 101/61 Pulse 60 Temp (Src) 98.9 (Temporal Artery) Resp 16 Ht 5' 6 (1.68m) Wt 194 lb 7.1 oz (88.2kg) SpO2 96% LMP 08/19/2020 BMI 31.40 kg/(m2). O2 Therapy: Room Air Physical Exam Performed GENERAL: Alert, no distress, cooperative, Obese SKIN: Skin color, texture, turgor normal. No rashes or lesions. HEAD/SINUSES: No significant findings LUNGS: Lungs clear to auscultation, Good diaphragmatic excursion CARDIAC: Normal S1 and S2; no rubs, murmurs, or gallops ABDOMEN: right flank tenderness, right sided abdominal tenderness, no guarding or rebound EXTREMITIES: Extremities normal, no deformities, edema, clubbing or skin discoloration. Good capillary refill., No ulcers Lines, Drains, and Airways Line Duration Peripheral 10/25/22 0807 Short Left Forearm 20 Gauge 2 days Reviewed lines and needs to be continued: REASONS: Intravenous fluids DATA: Diagnostic tests reviewed for today's visit: Most recent labs Most recent imaging CBC, Coags, BMP, Mg, Phos Recent Labs 10/27/22 0513 10/26/22 0536 10/25/22 0806 WBC 3.53* 3.44* 3.78 HB 10.9* 11.1* 13.1 HCT 33.6* 34.9* 39.5 PLT 160 181 208 NA 140 139 138 K 4.1 4.2 3.8 CHLOR 110* 110* 106* CO2 22 20* 22 BUN 5* 5* 7 CREAT 0.70 0.73 0.82 GLUC 89 83 85 CA 8.1* 8.3* 8.8 MG 1.9 1.9 1.9 P 3.1 4.3 -- Assessment/Plan Problem List Abdominal pain (POA: Yes) GERD (gastroesophageal reflux disease) (POA: Yes) PCOS (polycystic ovarian syndrome) (POA: Yes) Asthma (POA: Yes) Constipation (POA: Yes) Nausea and vomiting (POA: Status not on file) Acquired hypothyroidism (POA: Status not on file) Essential hypertension (POA: Status not on file) Peptic ulcer disease (POA: Status not on file) H/O gastric bypass (POA: Status not on file) HOSPITAL COURSE: Ms. Garcia is a 32 year old female with PMHx of HTN, asthma, GERD, PUD, hypothyroidism, PCOS, obesity s/p Tan-en-Y surgery 01/2022 who presented with abdominal pain for which GI is being consulted for. Pt states pain has been going on for about 10 days now. Started with upper abdominal pain and then N/V. She vomited food initially she ate but recently just bile. Denies hematemesis or coffee ground emesis. Has been having thin stools and constipation. Last emesis yesterday morning. Last stool Wednesday. Has been on linzess for 3 months was feeling better, issues with insurance covering now states will cost her 500 dollars. Denies heavy/daily NSAID use. Denies heavy alcohol use. Principal Problem: Abdominal pain Assessment AND Plan: -CT without acute pathology - Concerning for gastritis vs PUD vs problem with anastamoses - Patient did (more content not included)...[facility] [id number] NoteHNO ID: [id number] Author: Rayna Coyle MD Service: Hospital Medicine Author Type: Physician Type: Progress Notes Filed: 10/26/2022 3:33 PM Note Text: DEPARTMENT OF HOSPITAL MEDICINE PROGRESS NOTE SERVICE DATE: 10/26/2022 SERVICE TIME: 3:13 PM Hospital Medicine/Primary Attending: Rayna Coyle MD NIGHT AND WEEKEND COVERAGE: GALLATIN COVERAGE: : [phone], please contact via [employer] Nights: [phone] - 3rd floor: please page Hospitalist night cover [phone] - 4th floor: please page Hospitalist night cover [phone] - 5th floor: please page Hospitalist night cover [phone] Subjective INTERVAL HPI: feels ok, states that she has had recurrent episodes of abdominal pain since surgery. Endorses feeling flushed and tachycardic following eating recently. Continues to endorse right sided back and abdominal pain. Current Facility-Administered Medications Medication Dose Route Frequency liothyronine 5 mcg tab(s) (CYTOMEL) 5 mcg ORAL DAILY levothyroxine 100 mcg tab(s) (SYNTHROID) 100 mcg ORAL DAILY topiramate 100 mg tab(s) (TOPAMAX) 100 mg ORAL BID mirtazapine 15 mg (REMERON) 15 mg ORAL AT BEDTIME escitalopram oxalate 20 mg tab(s) (LEXAPRO) 20 mg ORAL DAILY sucralfate 1 g tab(s) (CARAFATE) 1 g ORAL QID acetaminophen 1,000 mg tab(s) (TYLENOL) 1,000 mg ORAL q 8 H hydrOXYzine HCl 25 mg tab(s) (ATARAX) 25 mg ORAL BID PRN ipratropium-albuterol 3 mL nebulizer solution (DUONEB) 3 mL INHALATION q 4 H PRN therapeutic multivitamin-minerals tablet (THERA-M PLUS) 1 tablet ORAL DAILY aluminum-magnesium hydroxide-simethicone 200-200-20 mg/5 mL 30 mL 30 mL ORAL q 6 H PRN NaCl 0.9% iv flush bag 20 mL INTRAVENOUS PRN NaCl 0.9% iv infusion 125 mL/hr INTRAVENOUS CONTINUOUS morphine 2 mg injection 2 mg INTRAVENOUS q 3 H PRN prochlorperazine 10 mg injection (COMPAZINE) 10 mg INTRAVENOUS q 6 H PRN albuterol 2.5 mg /3 mL (0.083 %) 2.5 mg (PROVENTIL) 2.5 mg INHALATION QID budesonide 0.5 mg/2 mL 0.5 mg (PULMICORT) 0.5 mg INHALATION BID pantoprazole 40 mg injection (PROTONIX) 40 mg INTRAVENOUS BID AC (0600/1600) polyethylene glycol 3350 34 g packet 34 g ORAL BID senna-docusate 8.6-50 mg 1 tablet (SENNA-S) 1 tablet ORAL BID Objective PHYSICAL EXAM: BP 109/62 Pulse 72 Temp (Src) 99.5 (Oral) Resp 17 Ht 5' 6 (1.68m) Wt 194 lb 7.1 oz (88.2kg) SpO2 98% LMP 08/19/2020 BMI 31.40 kg/(m2). O2 Therapy: Room Air Physical Exam Performed GENERAL: Alert, no distress, cooperative, Obese SKIN: Skin color, texture, turgor normal. No rashes or lesions. HEAD/SINUSES: No significant findings LUNGS: Lungs clear to auscultation, Good diaphragmatic excursion CARDIAC: Normal S1 and S2; no rubs, murmurs, or gallops ABDOMEN: right flank tenderness, right sided abdominal tenderness, no guarding or rebound EXTREMITIES: Extremities normal, no deformities, edema, clubbing or skin discoloration. Good capillary refill., No ulcers Lines, Drains, and Airways Line Duration Peripheral 10/25/22 0807 Short Left Forearm 20 Gauge 1 day Reviewed lines and needs to be continued: REASONS: Intravenous fluids DATA: Diagnostic tests reviewed for today's visit: Most recent labs Most recent imaging CBC, Coags, BMP, Mg, Phos Recent Labs 10/26/22 0536 10/25/22 0806 WBC 3.44* 3.78 HB 11.1* 13.1 HCT 34.9* 39.5 PLT 181 208 NA 139 138 K 4.2 3.8 CHLOR 110* 106* CO2 20* 22 BUN 5* 7 CREAT 0.73 0.82 GLUC 83 85 CA 8.3* 8.8 MG 1.9 1.9 P 4.3 -- Assessment/Plan Problem List Abdominal pain (POA: Yes) GERD (gastroesophageal reflux disease) (POA: Yes) PCOS (polycystic ovarian syndrome) (POA: Yes) Asthma (POA: Yes) Constipation (POA: Yes) Nausea and vomiting (POA: Status not on file) Acquired hypothyroidism (POA: Status not on file) Essential hypertension (POA: Status not on file) Peptic ulcer disease (POA: Status not on file) H/O gastric bypass (POA: Status not on file) HOSPITAL COURSE: Ms. Garcia is a 32 year old female with PMHx of HTN, asthma, GERD, PUD, hypothyroidism, PCOS, obesity s/p Tan-en-Y surgery 01/2022 who presented with abdominal pain for which GI is being consulted for. Pt states pain has been going on for about 10 days now. Started with upper abdominal pain and then N/V. She vomited food initially she ate but recently just bile. Denies hematemesis or coffee ground emesis. Has been having thin stools and constipation. Last emesis yesterday morning. Last stool Wednesday. Has been on linzess for 3 months was feeling better, issues with insurance covering now states will cost her 500 dollars. Denies heavy/daily NSAID use. Denies heavy alcohol use. Principal Problem: Abdominal pain Assessment AND Plan: -CT without acute pathology - Concerning for gastritis vs PUD vs problem with anastamoses - GI consulted, increase stool softeners to miralax and docc/senna along with enemas, IV PPI BID, and one time GI cocktail - Possible EGD pendi (more content not included)...[place] [facility] [id number] Note HNO ID: [id number] Author: Lu Arguello RN Service: Care Management Author Type: Registered Nurse Type: Care Mgt Initial Assessment Filed: 10/26/2022 1:10 PM Note Text: CARE MANAGEMENT: ASSESSMENT AND DISCHARGE PLAN SERVICE DATE: October 26, 2022 SERVICE TIME: 1:08 PM PCP: Jaquan Morrow Primary Contact: Extended Emergency Contact Information Primary Emergency Contact: Melisa Garcia Address: [address] Mobile Relation: Spouse Admission Status: Observation Insurance Provider: NEETA WESLEY Discharge Planning requested by: Per Department Practice Potential Transition Plans No Services Indicated Advance Directives Current Advance Directive: Health Care Power of Supervisor Title In Chart: Yes Up To Date and Valid: Yes Current Living Arrangements and Support Lives with: Children, Spouse/significant other Type of Residence: Private Residence (House) Does the patient have to climb stairs at home?: Yes;stairs outside the home;stairs within the home (5 steps to enter home and bedroom on the 2nd floor) Support: Children, Friends/neighbors, Family members, Spouse/significant other How do you manage to accomplish the following: Independent: Ambulation;Bathe/Shower;Dress;Meals/Meal Prep;Going to the bathroom;Medication Management;Transportation to appointments/community Current Services/Equipment Current Post-Acute Service(s): DME Current DME Type: Continuous Positive Airway Pressure Discharge Planning Patient Goal(s): General wellness, Increase strength, Be able to go home Jackson of Choice Explained: Jackson of Choice Given: No Reason Not Given: No placements necessary Are you interested in bedside delivery of your medications? Yes Discharge Planning Participant(s): Patient Patient/Family Comments: Caregiver Assessment: Caregiver is ready, willing and able to meet the patient's needs as recommended by the inter-professional team: No Caregiver needed Transport at Discharge: Transportation Arrangements: Car Needs Prior to Discharge: Needs Prior to Discharge: Ready for Discharge;Discharge Prescriptions Post-Acute Discharge Plan: Assessment completed with patient at bedside, explained my role in transitional care planning. Patient denies discharge needs at this time and plans to have her spouse Melisa pick her up when discharged. Care management will continue to follow and assist should any discharge needs arise. SIGNATURE: Lu Arguello RN PATIENT NAME: Abbey Garcia DATE: October 26, 2022 TIME: 1:08 PM CONTACT #: [phone] [id number] History of Past illness Narrative* Problem Noted Date Diagnosed Date Resolved Date Nausea and vomiting 10/25/2022 10/29/19 Last Assessment & Plan: See above Intractable nausea and vomiting 06/20/2022 06/23/2022 Acute abdominal pain 12/21/2020 023 Obesity 09/03/2020 11/29/2020 Abdominal pain 02/01/2020 04/08/2020 Moderate episode of recurren t major depressive disorder 11/21/2019 01/03/2020 Obesity, Class II, BMI 35-39.9 10/13/2019 11/29/2020 Last Assessment & Plan: Assessment: BMI 38.74 documented as of this encounter (statuses as of 10/28/2022) [facility]09-10-2023 History of Past illness Narrative* Problem Noted Date Diagnosed Date Resolved Date Nausea and vomiting 10/25/2022 10/29/19 23 Last Assessment & Plan: See above Intractable nausea and vomiting 06/20/2022 06/23/2022 Acute abdominal pain 12/21/2020 023 Obesity 09/03/2020 11/29/2020 Abdominal pain 02/01/2020 04/08/2020 Moderate episode of recurren t major depressive disorder 11/21/2019 01/03/2020 Obesity, Class II, BMI 35-39.9 10/13/2019 11/29/2020 Last Assessment & Plan: Assessment: BMI 38.74 documented as of this encounter (statuses as of 11/03/2022) [facility]09-10-2023 History of Past illness Narrative* Problem Noted Date Diagnosed Date Resolved Date Nausea and vomiting 10/25/2022 10/29/19 Last Assessment & Plan: See above Intractable nausea and vomiting 06/20/2022 06/23/2022 Acute abdominal pain 12/21/2020 023 Obesity 09/03/2020 11/29/2020 Abdominal pain 02/01/2020 04/08/2020 Moderate episode of recurren t major depressive disorder 11/21/2019 01/03/2020 Obesity, Class II, BMI 35-39.9 10/13/2019 11/29/2020 Last Assessment & Plan: Assessment: BMI 38.74 documented as of this encounter (statuses as of 11/03/2022) [facility]09-10-2023 History of Past illness Narrative* Problem Noted Date Diagnosed Date Resolved Date Nausea and vomiting 10/25/2022 10/29/19 Last Assessment & Plan: See above Intractable nausea and vomiting 06/20/2022 06/23/2022 Acute abdominal pain 12/21/2020 023 Obesity 09/03/2020 11/29/2020 Abdominal pain 02/01/2020 04/08/2020 Moderate episode of recurren t major depressive disorder 11/21/2019 01/03/2020 Obesity, Class II, BMI 35-39.9 10/13/2019 11/29/2020 Last Assessment & Plan: Assessment: BMI 38.74 documented as of this encounter (statuses as of 11/03/2022) [facility]09-10-2023 History of Past illness Narrative* Problem Noted Date Diagnosed Date Resolved Date Nausea and vomiting 10/25/2022 10/29/19 Last Assessment & Plan: See above Intractable nausea and vomiting 06/20/2022 06/23/2022 Acute abdominal pain 12/21/2020 023 Obesity 09/03/2020 11/29/2020 Abdominal pain 02/01/2020 04/08/2020 Moderate episode of recurren t major depressive disorder 11/21/2019 01/03/2020 Obesity, Class II, BMI 35-39.9 10/13/2019 11/29/2020 Last Assessment & Plan: Assessment: BMI 38.74 documented as of this encounter (statuses as of 11/03/2022) [facility]09-10-2023 History of Past illness Narrative* Problem Noted Date Diagnosed Date Resolved Date Nausea and vomiting 10/25/2022 10/29/19 Last Assessment & Plan: See above Intractable nausea and vomiting 06/20/2022 06/23/2022 Acute abdominal pain 12/21/2020 023 Obesity 09/03/2020 11/29/2020 Abdominal pain 02/01/2020 04/08/2020 Moderate episode of recurren t major depressive disorder 11/21/2019 01/03/2020 Obesity, Class II, BMI 35-39.9 10/13/2019 11/29/2020 Last Assessment & Plan: Assessment: BMI 38.74 documented as of this encounter (statuses as of 11/04/2022) [facility]09-10-2023 History of Past illness Narrative* Problem Noted Date Diagnosed Date Resolved Date Nausea and vomiting 10/25/2022 10/29/19 Last Assessment & Plan: See above Intractable nausea and vomiting 06/20/2022 06/23/2022 Acute abdominal pain 12/21/2020 023 Obesity 09/03/2020 11/29/2020 Abdominal pain 02/01/2020 04/08/2020 Moderate episode of recurren t major depressive disorder 11/21/2019 01/03/2020 Obesity, Class II, BMI 35-39.9 10/13/2019 11/29/2020 Last Assessment & Plan: Assessment: BMI 38.74 documented as of this encounter (statuses as of 11/04/2022) [facility]09-10-2023 History of Past illness Narrative* Problem Noted Date Diagnosed Date Resolved Date Nausea and vomiting 10/25/2022 10/29/19 Last Assessment & Plan: See above Intractable nausea and vomiting 06/20/2022 06/23/2022 Acute abdominal pain 12/21/2020 023 Obesity 09/03/2020 11/29/2020 Abdominal pain 02/01/2020 04/08/2020 Moderate episode of recurren t major depressive disorder 11/21/2019 01/03/2020 Obesity, Class II, BMI 35-39.9 10/13/2019 11/29/2020 Last Assessment & Plan: Assessment: BMI 38.74 documented as of this encounter (statuses as of 11/05/2022) [facility]09-10-2023 History of Past illness Narrative* Problem Noted Date Diagnosed Date Resolved Date Nausea and vomiting 10/25/2022 10/29/19 Last Assessment & Plan: See above Intractable nausea and vomiting 06/20/2022 06/23/2022 Acute abdominal pain 12/21/2020 023 Obesity 09/03/2020 11/29/2020 Abdominal pain 02/01/2020 04/08/2020 Moderate episode of recurren t major depressive disorder 11/21/2019 01/03/2020 Obesity, Class II, BMI 35-39.9 10/13/2019 11/29/2020 Last Assessment & Plan: Assessment: BMI 38.74 documented as of this encounter (statuses as of 11/05/2022) [facility] History of Past illness Narrative* Problem Noted Date Diagnosed Date Resolved Date Nausea and vomiting 10/25/2022 10/29/19 Last Assessment & Plan: See above Intractable nausea and vomiting 06/20/2022 06/23/2022 Acute abdominal pain 12/21/2020 023 Obesity 09/03/2020 11/29/2020 Abdominal pain 02/01/2020 04/08/2020 Moderate episode of recurren t major depressive disorder 11/21/2019 01/03/2020 Obesity, Class II, BMI 35-39.9 10/13/2019 11/29/2020 Last Assessment & Plan: Assessment: BMI 38.74 documented as of this encounter (statuses as of 11/06/2022) [facility]-10-20[facility] History of Past illness Narrative* Problem Noted Date Diagnosed Date Resolved Date Nausea and vomiting 10/25/2022 10/29/19 Last Assessment & Plan: See above Intractable nausea and vomiting 06/20/2022 06/23/2022 Acute abdominal pain 12/21/2020 023 Obesity 09/03/2020 11/29/2020 Abdominal pain 02/01/2020 04/08/2020 Moderate episode of recurren t major depressive disorder 11/21/2019 01/03/2020 Obesity, Class II, BMI 35-39.9 10/13/2019 11/29/2020 Last Assessment & Plan: Assessment: BMI 38.74 documented as of this encounter (statuses as of 11/06/2022) [facility]09-10-2023 History of Past illness Narrative* Problem Noted Date Diagnosed Date Resolved Date Nausea and vomiting 10/25/2022 10/29/19 Last Assessment & Plan: See above Intractable nausea and vomiting 06/20/2022 06/23/2022 Acute abdominal pain 12/21/2020 023 Obesity 09/03/2020 11/29/2020 Abdominal pain 02/01/2020 04/08/2020 Moderate episode of recurren t major depressive disorder 11/21/2019 01/03/2020 Obesity, Class II, BMI 35-39.9 10/13/2019 11/29/2020 Last Assessment & Plan: Assessment: BMI 38.74 documented as of this encounter (statuses as of 11/10/2022) [facility]09-10-2023 NoteHNO ID: [id number] Author: Vicky Jean Baptiste RT(R) Service: Radiology Author Type: Technologist Type: Progress Notes Filed: 10/25/2022 9:28 AM Note Text: Radiology Service Progress Note PATIENT NAME: Abbey Garcia DATE OF SERVICE: October 25, 2022 TIME: 9:27 AM PATIENT IDENTITY VERIFICATION COMPLETED USING TWO (2) IDENTIFIERS: Name and Date of confirmed by patient verbally and Name and Date of confirmed by identification band. FALL SCREENING: Has the patient had 2 falls in the last year or 1 fall with injury or currently using an Ambulatory Assistive Device (Walker, Cane, Wheelchair, Crutches, etc.)? Emergency Room Patient: Screened in ED PATIENT GENDER DATA: Female. status: : No status: NO. PATIENT RELEVANT IMPLANT DATA REVIEWED: Not Applicable RADIOLOGY DEPARTMENT: CT; Exam(s) Completed: Abdomen/Pelvis PERIPHERAL IV DATA: Inpatient: see LDA documentation SIGNED BY: RT Esmer(R) October 25, 2022 9:27 AMK[facility] [id number] Miscellaneous Notes* Telephone Encounter - Li Kimball RN - 10/20/2022 2:57 PM EDT I spoke to the patient and reviewed her schedule and testing procedures. I also reviewed the Carafate prescription. Patient stated understanding and had no further questions. Li Kimball RN * Telephone Encounter - Li Kimball RN - 10/20/2022 2:[address] Kat an EGD has been ordered, Carafate was ordered and upper GI series should be move upif at all possible. Li Kimball RN * Telephone Encounter - Li Kimball RN - 10/20/2022 1:44 PM EDT Patient states her GERD, nausea & vomiting have gotten much worse over the past 2-3 days, can barely keep down water. Nausea and vomiting any time she tries to eat or drink. Patient states the pain shoots through to her back. * Telephone Encounter - Cristina Batres - 10/20/2022 1:19 PM EDT Patient called and left message regarding GERD nausea vomiting and pain return call to [phone] documented in [facility] Discharge instructions Patient Education 10/20/2022 12:40:07 Gastritis, Adult Gastritis, Adult Gastritis is inflammation of the stomach. There are two kinds of gastritis: Acute gastritis. This kind develops suddenly. Chronic gastritis. This kind is much more common. It develops slowly and lasts for a long time. Gastritis happens when the lining of the stomach becomes weak or gets damaged. Without treatment, gastritis can lead to stomach bleeding and ulcers. What are the causes? This condition may be caused by: An infection. Drinking too much alcohol. Certain medicines. These include steroids, antibiotics, and some dbjx-ayg-qkmulyj medicines, such as aspirin or ibuprofen. Having too much acid in the stomach. Having a disease of the stomach. Other causes may include: An allergic reaction. Some cancer treatments (radiation). Smoking cigarettes or the use of products that contain nicotine or tobacco. In some cases, the cause of this condition is not known. What increases the risk? Having a disease of the intestines. Having a disease in which the body's immune system attacks the body (autoimmune disease), such as Crohn's disease. Using aspirin or ibuprofen and other NSAIDs to treat other conditions, such as heart disease or chronic pain. Stress. What are the signs or symptoms? Symptoms of this condition include: Pain or a burning sensation in the upper abdomen. Nausea. Vomiting. An uncomfortable feeling of fullness after eating. Weight loss. Bad breath. Blood in your vomit or stool (feces). In some cases, there are no symptoms. How is this diagnosed? This condition may be diagnosed based on your medical history, a physical exam, and tests. Tests may include: Your medical history and a description of your symptoms. A physical exam. Tests. These can include: ?Blood tests. ?Stool tests. ?A test in which a thin, flexible instrument with a light and a camera is passed down the esophagusand into the stomach (upper endoscopy). ?A test in which a tissue sample is removed to look at it under a microscope (biopsy). How is this treated? This condition may be treated with medicines. The medicines that are used vary depending on the cause of the gastritis. If the condition is caused by a bacterial infection, you may be given antibiotic medicines. If the condition is caused by too much acid in the stomach, you may be given medicines called H2 blockers, proton pump inhibitors, or antacids. Treatment may also involve stopping the use of certain medicines such as aspirin or ibuprofen and other NSAIDs. Follow these instructions at home: Medicines Take ndcj-ctb-dlwhvwc and prescription medicines only as told by your health care provider. If you were prescribed an antibiotic medicine, take it as told by your health care provider. Do notstop taking the antibiotic even if you start to feel better. Alcohol use Do not drink alcohol if: ?Your health care provider tells you not to drink. ?You are , may be , or are planning to become . If you drink alcohol: ?Limit your use to: ?0 1 drink a day for women. ?0 2 drinks a day for men. ?Know how much alcohol is in your drink. In the [place] one drink equals one 12 oz bottle of beer (355 mL), one 5 oz glass of wine (148 mL), or one 1 oz glass of hard liquor (44 mL). General instructions Eat small, frequent meals instead of large meals. Avoid foods and drinks that make your symptoms worse. Talk with your health care provider about ways to manage stress, such as getting regular exercise or practicing deep breathing, meditation, or yoga. Do not use any products that contain nicotine or tobacco. These products include cigarettes, chewing tobacco, and vaping devices, such as e-cigarettes. If you need help quitting, ask your health careprovider. Drink enough fluid to keep your urine pale yellow. Keep all follow-up visits. This is important. Contact a health care provider if: Your symptoms get worse. Your abdominal pain gets worse. Your symptoms return after treatment. You have a fever. Get help right away if: You vomit blood or a substance that looks like coffee grounds. You have black or dark red stools. You are unable to keep fluids down. These symptoms may represent a serious problem that is an emergency. Do not wait to see if the symptoms will go away. Get medical help right away. Call your local emergency services (911 in the [place] Do not drive yourself to the hospital. Summary Gastritis is inflammation of the lining of the stomach that can occur suddenly (acute) or develop slowly over time (chronic). This condition is diagnosed with a medical history, a physical exam, or tests. This condition may be treated with medicines to treat infection or medicines to reduce the amount of acid in your stomach. Follow your health care provider's instructions about taking medicines, making changes to your diet, and knowing when to call for help. This information is not intended to replace advice given to you by your health care provider. Make sure you discuss any questions you have with your health care provider. Document Revised: 06/07/2021 Document Reviewed: 06/07/2021 [employer] Patient Education 2022 [employer]. 10/20/2022 12:40:07 Abdominal Pain, Adult Abdominal Pain, Adult Pain in the abdomen (abdominal pain) can be caused by many things. Often, abdominal pain is not serious and it gets better with no treatment or by being treated at home. However, sometimes abdominal pain is serious. Your health care provider will ask questions about your medical history and do a physical exam to try to determine the cause of your abdominal pain. Follow these instructions at home: Medicines Take fgnk-jip-areikbj and prescription medicines only as told by your health care provider. Do not take a laxative unless told by your health care provider. General instructions Watch your condition for any changes. Drink enough fluid to keep your urine pale yellow. Keep all follow-up visits as told by your health care provider. This is important. Contact a health care provider if: Your abdominal pain changes or gets worse. You are not hungry or you lose weight without trying. You are constipated or have diarrhea for more than 2 3 days. You have pain when you urinate or have a bowel movement. Your abdominal pain wakes you up at night. Your pain gets worse with meals, after eating, or with certain foods. You are vomiting and cannot keep anything down. You have a fever. You have blood in your urine. Get help right away if: Your pain does not go away as soon as your health care provider told you to expect. You cannot stop vomiting. Your pain is only in areas of the abdomen, such as the right side or the left lower portion of the abdomen. Pain on the right side could be caused by appendicitis. You have bloody or black stools, or stools that look like tar. You have severe pain, cramping, or bloating in your abdomen. You have signs of dehydration, such as: ?Dark urine, very little urine, or no urine. ?Cracked lips. ?Dry mouth. ?Sunken eyes. ?Sleepiness. ?Weakness. You have trouble breathing or chest pain. Summary Often, abdominal pain is not serious and it gets better with no treatment or by being treated at home. However, sometimes abdominal pain is serious. Watch your condition for any changes. Take oiaw-dav-hmirorc and prescription medicines only as told by your health care provider. Contact a health care provider if your abdominal pain changes or gets worse. Get help right away if you have severe pain, cramping, or bloating in your abdomen. This information is not intended to replace advice given to you by your health care provider. Make sure you discuss any questions you have with your health care provider. Document Revised: 03/22/2020 Document Reviewed: 06/12/2019 [employer] Patient Education 2022 [employer] [facility]. Follow Up Care 10/20/2022 08:06:19 With:Jaquan Morrow Address: [address] [place] [address] Business (1) When:10/23/2022 12:06:27 [facility]09-04-2023 Evaluation + Plan noteExtracted from: Title:ED Note Author:Earnest Jett DO Date:10/19 Abdominal pain (R10.9: Unspe cified abdominal pain) Ordered: acetaminophen-oxycodone, 1 tab(s), Oral, q6hr for 3 day(s), 10 tab(s), Refill(s) 0, [id number], 168, cm, 10/19/22 8:44:00 EDT, Height/Length Dosing, 85.6, kg, 10/19/22 8:44:00 EDT, Weight Dosing Abnormal serum lipase level (R74.8: Abnormal levels of other serum enzymes) Gastritis (K29.70: Gastritis, unspecified, without bleeding) Vomiting (R11.10: Vomiting, unspecified) Orders: Al hydroxide/Mg hydroxide/simethicone, 30 mL, Susp-Oral, Oral, Once, Stop date 10/19/22 12:34:00 EDT, STAT, Start date 10/19/22 12:34:00 EDT atropine/hyoscyamine/PB/scopolamine, 10 mL, Elixir, Oral, Once, Stop date 10/19/22 12:34:00 EDT, STAT, Start date 10/19/22 12:34:00 EDT diazepam, 5 mg = 1 mL, Injection, IV Push, Once, Stop date 10/19/22 10:13:00 EDT, STAT, Start date 10/19/22 10:13:00 EDT, 10/19/22 10:13:00 EDT ketorolac, 15 mg = 1 mL, Injection, IV Push, Once, Stop date 10/19/22 12:18:00 EDT, STAT, Start date 10/19/22 12:18:00 EDT, 10/19/22 12:18:00 EDT morphine, 4 mg = 2 mL, Injection, IV Push, Once, Stop date 10/19/22 10:13:00 EDT, STAT, Start date 10/19/22 10:13:00 EDT, 10/19/22 10:13:00 EDT morphine, 4 mg = 2 mL, Injection, IV Push, Once, Stop date 10/19/22 8:50:00 EDT, STAT, Start date 10/19/22 8:50:00 EDT, 10/19/22 8:50:00 EDT ondansetron, 4 mg = 2 mL, Injection, IV Push, Once, Stop date 10/19/22 8:50:00 EDT, STAT, Start date 10/19/22 8:50:00 EDT, 10/19/22 8:50:00 EDT ondansetron, 4 mg = 2 mL, Injection, IV Push, Once, Stop date 10/19/22 10:13:00 EDT, STAT, Start date 10/19/22 10:13:00 EDT, 10/19/22 10:13:00 EDT ondansetron, 4 mg = 1 tab(s), Oral, q6hr, PRN Nausea, Take one tab by mouth every six hours as needed for nausea, # 10 tab(s), Refills(s) 0, [id number], 168, cm, 10/19/22 8:44:00 EDT, Height/Length Dosing, 85.6, kg, 10/19/22 8:44:00 EDT, Weight D... promethazine, 12.5 mg = 0.5 mL, Injection, IV Push, Once, Stop date 10/19/22 12:18:00 EDT, STAT, Start date 10/19/22 12:18:00 EDT, 10/19/22 12:18:00 EDT promethazine, 25 mg = 1 mL, Injection, IntraMuscular, Once, Stop date 10/19/22 12:36:00 EDT, STAT, Start date 10/19/22 12:36:00 EDT, 10/19/22 12:36:00 EDT Sodium Chloride 0.9% intravenous solution, 1,000 mL, Soln-IV, IV, Once, Stop date 10/19/22 8:50:00 EDT, STAT, Start date 10/19/22 8:50:00 EDT, Infuse over 61, minute(s) sucralfate, 1 gram = 10 mL, Oral, QID, # 280 mL, Refills(s) 0, [id number], 168, cm, 10/19/22 8:44:00 EDT, Height/Length Dosing, 85.6, kg, 10/19/22 8:44:00 EDT, Weight Dosing Automated Diff Basic Metabolic Panel CBC w/ Auto Diff eGFR Extra Blue Tube Extra SST Tube Hepatic Function Panel Lipase Level TSH With T4fr Reflex UA With Cult Reflex XR Chest 2 Views Future Appointments Appointment Date:11/20/2022 02:40:00 PM Scheduled Provider: Location:[facility] Appointment Type: Lab Draw Appointment Date:01/20/2023 10:00:00 AM Scheduled Provider:Rajni Rouse MD Location:[facility] Appointment Type:URO Office Visit Future Scheduled Tests Laboratory* T3 Free 10/07/22 * Thyroid Stimulating Hormone 10/07/22 * Free T4 10/07/22 Radiology* US Renal 06/10/22 [facility]09-04-2023 Hospital Discharge instructions Follow Up Care 10/19/2022 08:31:02 With:Jon Rivera Address: [address] [place] [address], [facility] [address] [phone] Business (1) When:10/22/2022 13:40:06 With:Your GI physician Address:Unknown When:10/22/2022 13:40:01 With:Jaquan Morrow Address: [address] [place] [phone] Business (1) When:Within 3 Day(s) [facility]08-31-2023 Miscellaneous Notes* Telephone Encounter - Ria Roberts MD - 10/15/2022 12:06 PM EDT Refilled Linaclotide in Dr. Avalos's absence. * Telephone Encounter - Grecia Arcos - 10/15/2022 9:16 AM EDT [facility] fax requesting refills for Robbie patient Last seen 07/22/22 Requested Prescriptions Pending Prescriptions Disp Refills linaclotide (LINZESS) 145 mcg capsule 30 capsule 2 Sig: Take 1 capsule by mouth DAILY (6 AM). Please review and advise. Grecia Wallace documented in this encounter[facility] NoteHNO ID: [id number] Author: Pablo Lebron PSYD Service: ? Author Type: Psychologist Type: Progress Notes Filed: 10/05/2022 3:51 PM Note Text: Assessment was conducted over the phone due to pt's technical difficulties. Patient is a resident of [place], and completed the assessment over the phone in [place]. Psychologist is licensed and stationed in [place]. Informed consent was discussed and verbal assent was granted by the patient. GENERAL PSYCHOLOGY Session #: 2 (session count starts after PSYL NEW EVAL visit) SUBJECTIVE: Lexapro increased to 20 mg. Thyroid med (Synthroid) decreased from 125 mg to 100 mg Mood ( I feel a lot better, efforts to laugh). Benefits of daily yoga/stretching (mood, anxiety, stress); efforts to prioritize self-care. Improved marital dynamics (compromise, communication). Start of new school year (8th grade science). Up and down dynamic with mom ( cassi jin ). Hx of depression (three pregnancies); PTSD (third ; able to process?) Heightened anxiety since third . Communication with friend. Body image (neg self-talk). OBJECTIVE: Utilized cognitive behavioral and solution focused treatment modalities Mental Status Exam Appearance: Well dressed, well groomed and Appears stated age Behavior: Behaves appropriately during the encounter, Pleasant and interactive Social relatedness: Euthymic and Engaging Speech/Language:The patient demonstrates appropriate tone, prosody, christel, phonetics, and syntax Mood: Stressed, anxious, overwhelmed Affect: Full and appropriate to topic Orientation: Person, Place, Time and Situation Associations: Intact and linear Hallucinations: None Delusions: None Suicidal Ideation: No suicidal ideation, intent or plan. Homicidal Ideation: No homicidal ideation, intent or plan. Insight: Appropriate Judgment: Appropriate ASSESSMENT: Pt reports Lexapro increased to 20 mg and Synthroid decreased to 100 mg Pt describes her improved mood, and the benefits of self-care on her marriage and overall health. Begin to explore and process pt's hx of depression, PTSD (third ; able to process?), and anxiety (since third ). Pt expresses optimism regarding the start of a new school year (8th grade science). Begin to address pt's hx of poor body image and neg self-talk. DIAGNOSIS: PRIMARY: 1: Depression, Controlled Generalized Anxiety Disorder Situational Stress PROVISIONAL: Unspecified trauma and stressor related disorder TREATMENT MODALITIES: Cognitive Behavioral Therapy to behavior modifications, cognitive restructuring, self monitoring and increasing pleasurable activities, Solution Focused Psychotherapy, Supportive Therapy PROGRESS TO DATE: Senior Living Progress: Stable Short Term Condition: Stable GOALS/OBJECTIVES/INTERVENTIONS: To identify and implement tools for effectively managing symptoms of anxiety, stress, and low mood. Approximately 45 minutes were spent with the patient doing therapy. [facility] of Present illness Narrative* Pablo Lebron, ROSALBA - 10/05/2022 3:07 PM EDT Assessment was conducted over the phone due to pt's technical difficulties. Patient is a resident of [place], and completed the assessment over the phone in [place]. Psychologist is licensed and stationed in [place]. Informed consent was discussed and verbal assent was granted by the patient. GENERAL PSYCHOLOGY Session #: 2 (session count starts after PSYL NEW EVAL visit) SUBJECTIVE: Lexapro increased to 20 mg. Thyroid med (Synthroid) decreased from 125 mg to 100 mg Mood ( I feel a lot better, efforts to laugh). Benefits of daily yoga/stretching (mood, anxiety, stress); efforts to prioritize self-care. Improved marital dynamics (compromise, communication). Start of new school year (8th grade science). Up and down dynamic with mom ( cassi jin ). Hx of depression (three pregnancies); PTSD (third ; able to process?) Heightened anxiety since third . Communication with friend. Body image (neg self-talk). OBJECTIVE: Utilized cognitive behavioral and solution focused treatment modalities Mental Status Exam Appearance: Well dressed, well groomed and Appears stated age Behavior: Behaves appropriately during the encounter, Pleasant and interactive Social relatedness: Euthymic and Engaging Speech/Language:The patient demonstrates appropriate tone, prosody, christel, phonetics, and syntax Mood: Stressed, anxious, overwhelmed Affect: Full and appropriate to topic Orientation: Person, Place, Time and Situation Associations: Intact and linear Hallucinations: None Delusions: None Suicidal Ideation: No suicidal ideation, intent or plan. Homicidal Ideation: No homicidal ideation, intent or plan. Insight: Appropriate Judgment: Appropriate ASSESSMENT: Pt reports Lexapro increased to 20 mg and Synthroid decreased to 100 mg Pt describes her improved mood, and the benefits of self-care on her marriage and overall health. Begin to explore and process pt's hx of depression, PTSD (third ; able to process?), and anxiety (since thirdpregnancy). Pt expresses optimism regarding the start of a new school year (8th grade science). Begin to address pt's hx of poor body image and neg self-talk. DIAGNOSIS: PRIMARY: 1: Depression, Controlled Generalized Anxiety Disorder Situational Stress PROVISIONAL: Unspecified trauma and stressor related disorder TREATMENT MODALITIES: Cognitive Behavioral Therapy to behavior modifications, cognitive restructuring, self monitoring and increasing pleasurable activities, Solution Focused Psychotherapy, Supportive Therapy PROGRESS TO DATE: [employer] Progress: Stable Short Term Condition: Stable GOALS/OBJECTIVES/INTERVENTIONS: To identify and implement tools for effectively managing symptoms of anxiety, stress, and low mood. Approximately 45 minutes were spent with the patient doing therapy. Pablo Lebron PsyD documented in this encounterOhiohealth [facility]08-14-2023 NoteSelect Medical [facility]08-14-2023 Instructions* Patient Instructions* Xiomara Martinez RD - 09/28/2022 8:19 AM EDT 1. Protein: Continue to strive for 85 g protein per day. Eat protein first at all meals. Lean meats, low fat/part skim dairy products, peanut butter, eggs, beans. 2. Eat 4 small meals per day or 3 meals and 1-2 small snacks for additional protein 3. Fluids: 64 oz per day, minimum. No carbonation, no caffeine, no calories, no alcohol. 4. Vitamin/minerals: Take daily Bariatric Fusion multivitamin soft chews and calcium citrate 8904-8232 mg/day(3 soft chews), and continue Probiotic drink 5. Exercise: strive for daily activity - combine strength training and cardio for best workouts. Goal is 30 minutes 5-6x per week. 6. Practice these: Eat in this order protein first, vegetable and fruit second and whole grain carbohydrates last. * Separate eating and drinking by 30 minutes * Chew your food 20-30x per bite * Meals should last 30 minutes. 7. Aim for 6613-8874 calories and 75-100 gm carbs per day Nutrition Monitoring & Evaluation: Maintain BMI < 30 Need for Follow up: 4 months, for conversion anniversary - [phone] documented in this encounterOhiohealth O'[facility]len[facility]08-14-2023 History of Present illness Narrative* Xiomara Martinez, DADA - 09/28/2022 8:00 AM EDT [facility] Nutrition Therapy: Virtual Consult - Re-assessment I have communicated my name and active licensure. The patient s identity and physical location wereverified at the time of this visit. 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 Nutrition Diagnosis: Altered Gastrointestinal Tract Function, related to, S/P bariatric surgery, asevidenced by patient update and PSH RECOMMENDED MALNUTRITION DIAGNOSIS: NO MALNUTRITION IDENTIFIED NUTRITION CARE PLAN: Nutrition Intervention 09/28/2022: Modify type and amount of food and beverage 1. Protein: Continue to strive for 85 g protein per day. Eat protein first at all meals. Lean meats, low fat/part skim dairy products, peanut butter, eggs, beans. 2. Eat 4 small meals per day or 3 meals and 1-2 small snacks for additional protein 3. Fluids: 64 oz per day, minimum. No carbonation, no caffeine, no calories, no alcohol. 4. Vitamin/minerals: Take daily Bariatric Fusion multivitamin soft chews and calcium citrate 6349-0720 mg/day(3 soft chews), and continue Probiotic drink 5. Exercise: strive for daily activity - combine strength training and cardio for best workouts. Goal is 30 minutes 5-6x per week. 6. Practice these: Eat in this order protein first, vegetable and fruit second and whole grain carbohydrates last. * Separate eating and drinking by 30 minutes * Chew your food 20-30x per bite * Meals should last 30 minutes. 7. Aim for 8651-3783 calories and 75-100 gm carbs per day Nutrition Monitoring & Evaluation: Maintain BMI < 30 Need for Follow up: 4 months, for conversion anniversary - [phone] PROGRESS: Interval History: Patient presents for follow up MNT 2 years post-op LSG and now 8 months post op partial Gastrectomy with RY reconstruction, secondary to severe GERD. Patient reports temporarily finding relief from reflux, which has recently returned. Patient also experiencing increased constipation symptoms, currently being treated with Lynzess. Net weight loss 74 pounds (258 lbs initial at Index LSG) 29% TWL Pre-surgery weight: 209 pounds at time of Revision, indicating a loss of 25 pounds (12%) 16 pounds weight loss since last assessment 1+ year ago (200 lbs) Patient reports desired weight of 155-160 pounds Diet recall indicates consistent meal pattern with small, frequent meals throughout the day. Recently started tracking intake on Protagen bre. Consistent, but likely insufficient protein intake. Following Phase 5 diet currently. 0849-3615 calories/day - meeting low-end needs 60-70 gm protein intake/day - falling below recommendations 60-90 oz fluid intake/day - meeting needs Taking all vitamin/minerals, however insufficient calcium citrate. Labs reviewed, unremarkable. Resting Metabolic Rate:1557 Energy needs for weight loss 8491-3647 (15-20 carina/kg current weight) Protein needs: 85 grams protein per day (1.2 - 1.5 g/kg IBW kg) Exercise - limtied due to recent shoulder injury. Consistently working with PT to rehab Nutrition Intervention 08/28/2021: Modify type and amount of food consumed for meals and snacks: 1. Protein: Continue to strive for 75-93 g protein per day. Eat protein first at all meals. Lean meats, low fat/part skim dairy products, peanut butter, eggs, beans. 2. Eat 4 small meals per day or 3 meals and 1-2 small snacks for additional protein 3. Fluids: 64 oz per day, minimum. No carbonation, no caffeine, no calories, no alcohol. 4. Vitamin/minerals: Continue daily Bariatric Fusion One a Day multivitamin capsule PLUS 4655-6107 mg calcium citrate 5. Exercise: strive for daily activity - combine strength training and cardio for best workouts. Goal is 30 minutes 5-6x per week. 6. Practice these: Eat in this order protein first, vegetable and fruit second and whole grain carbohydrates last. * Separate eating and drinking by 30 minutes * Chew your food 20-30x per bite * Meals should last 30 minutes. 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 Resting Metabolic Rate: 1557 Malnutrition Screening Significant unintentional weight loss? No Eating less than 75% of usual intake for more than 2 weeks? No Potential Signs of Inflammation: no identifiable sources Nutritional status: Education Materials Provided: None this visit READINESS TO LEARN Cognitive ability: Alert and oriented Motivation to learn: Interested Family support: Unable to assess - Family not present Instruction provided to: Patient Patient learns best by: Multiple Methods Factors affecting learning: None Physical limitations affecting learning: None Likelihood of Adherence: High Referred by: Jacquelyn FRIAS Billing Type: Re-assess/15 min 2 units SIGNATURE: Xiomara Martinez RD PATIENT NAME: Abbey Garcia DATE: 09/28/2022 TIME: 7:48 AM PAGER: [phone] documented in this encounterOhiohealth O'[facility]08-08-2023 NoteSelect [facility]08-07-2023 NoteHNO ID: [id number] Author: Pablo Lebron PSYD Service: ? Author Type: Psychologist Type: Progress Notes Filed: 09/22/2022 12:47 PM Note Text: Assessment was conducted over the phone due to pt's technical difficulties. Patient is a resident of [place], and completed the assessment over the phone in [place]. Psychologist is licensed and stationed in [place]. Informed consent was discussed and verbal assent was granted by the patient. GENERAL PSYCHOLOGY Session #: 2 (session count starts after PSYL NEW EVAL visit) SUBJECTIVE: Medical conditions Gastric sleeve (August 2020) Two labrum tears in same hip (June 2021) Gastric sleeve revision (January 2022) Bicep tendon repair (July 2022). Two older children diagnosed Autistic (age 5 in 2020 and age 4 six months later) Youngest child (age 2, symptom uncertainty) Financial and familial stress. 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 Animosity from and mom (not enough time at home). Hurt by mom's words wants to communicate, she internalizes. Marital therapy? Appreciative of family help with kids. 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 Lexapro (increased from 15 to 20 mg last week) Remeron 15mg at night Hydroxizine PRN OBJECTIVE: Utilized cognitive behavioral and solution focused treatment modalities Mental Status Exam Appearance: Well dressed, well groomed and Appears stated age Behavior: Behaves appropriately during the encounter, Pleasant and interactive Social relatedness: Euthymic and Engaging Speech/Language:The patient demonstrates appropriate tone, prosody, christel, phonetics, and syntax Mood: Stressed, anxious, overwhelmed Affect: Full and appropriate to topic Orientation: Person, Place, Time and Situation Associations: Intact and linear Hallucinations: None Delusions: None Suicidal Ideation: No suicidal ideation, intent or plan. Homicidal Ideation: No homicidal ideation, intent or plan. Insight: Appropriate Judgment: Appropriate ASSESSMENT: First session since June 2019; begin to reestablish therapeutic rapport. Begin to explore and process pt's symptoms of anxiety, panic, stress, and low mood. Pt describes the stress of medical conditions (self; children), marital and familial dynamics, and finances, respectively. Pt identifies healthy outlets and sources of emotional support, however, acknowledges the need for improved life-work balance. Pt reports taking prescribed Lexapro (increased from 15 to 20 mg last week), Remeron (15 mg at night), and Hydroxizine (PRN). DIAGNOSIS: PRIMARY: 1: Depression, Controlled Generalized Anxiety Disorder Situational Stress PROVISIONAL: Unspecified trauma and stressor related disorder TREATMENT MODALITIES: Cognitive Behavioral Therapy to behavior modifications, cognitive restructuring, self monitoring and increasing pleasurable activities, Solution Focused Psychotherapy, Supportive Therapy PROGRESS TO DATE: Senior Living Progress: Stable Short Term Condition: Stable GOALS/OBJECTIVES/INTERVENTIONS: To identify and implement tools for effectively managing symptoms of anxiety, stress, and low mood. Approximately 45 minutes were spent with the patient doing therapy. Pablo Lebron [facility]08-07-2023 History of Present illness Narrative* Pablo Lebron [facility] - 09/21/2022 2:04 PM EDT Assessment was conducted over the phone due to pt's technical difficulties. Patient is a resident of [place], and completed the assessment over the phone in [place]. Psychologist is licensed and stationed in [place]. Informed consent was discussed and verbal assent was granted by the patient. GENERAL PSYCHOLOGY Session #: 2 (session count starts after PSYL NEW EVAL visit) SUBJECTIVE: Medical conditions Gastric sleeve (August 2020) Two labrum tears in same hip (June 2021) Gastric sleeve revision (January 2022) Bicep tendon repair (July 2022). Two older children diagnosed Autistic (age 4 in 2020 and age 4 six months later) Youngest child (age 2, symptom uncertainty) Financial and familial stress. 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 Animosity from and mom (not enough time at home). Hurt by mom's words wants to communicate, she internalizes. Marital therapy? Appreciative of family help with kids. 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 Lexapro (increased from 15 to 20 mg last week) Remeron 15mg at night Hydroxizine PRN OBJECTIVE: Utilized cognitive behavioral and solution focused treatment modalities Mental Status Exam Appearance: Well dressed, well groomed and Appears stated age Behavior: Behaves appropriately during the encounter, Pleasant and interactive Social relatedness: Euthymic and Engaging Speech/Language:The patient demonstrates appropriate tone, prosody, christel, phonetics, and syntax Mood: Stressed, anxious, overwhelmed Affect: Full and appropriate to topic Orientation: Person, Place, Time and Situation Associations: Intact and linear Hallucinations: None Delusions: None Suicidal Ideation: No suicidal ideation, intent or plan. Homicidal Ideation: No homicidal ideation, intent or plan. Insight: Appropriate Judgment: Appropriate ASSESSMENT: First session since June 2019; begin to reestablish therapeutic rapport. Begin to explore and process pt's symptoms of anxiety, panic, stress, and low mood. Pt describes the stress of medical conditions (self; children), marital and familial dynamics, and finances, respectively. Pt identifies healthy outlets and sources of emotional support, however, acknowledges the need for improved life- work balance. Pt reports taking prescribed Lexapro (increased from 15 to 20 mg last week), Remeron (15 mg at night), and Hydroxizine (PRN). DIAGNOSIS: PRIMARY: 1: Depression, Controlled Generalized Anxiety Disorder Situational Stress PROVISIONAL: Unspecified trauma and stressor related disorder TREATMENT MODALITIES: Cognitive Behavioral Therapy to behavior modifications, cognitive restructuring, self monitoring and increasing pleasurable activities, Solution Focused Psychotherapy, Supportive Therapy PROGRESS TO DATE: [employer] Progress: Stable Short Term Condition: Stable GOALS/OBJECTIVES/INTERVENTIONS: To identify and implement tools for effectively managing symptoms of anxiety, stress, and low mood. Approximately 45 minutes were spent with the patient doing therapy. Pablo Lebron PsyD documented in this encounterOhiohealth O[facility]08-04-2023 NoteSelect Medical [facility]08-04-2023 History of Present illness Narrative* Breanna Stern APRN.OBGYN HOSPITALIST PHYSICIAN - 09/18/2022 3:14 PM EDT BMI SURGERY Post Op Clinic Note September 18, 2022 INTERVAL HISTORY: Abbey Garcia is here for 7 month post op visit. After last visit, her EGD revealed erosion and anastomotic stricture. She was to continue BID PPI. Follow up EGD in June with resolution. She stopped PPI afterwards and noticed return of heartburn symptoms, trouble with regular consistency foods after stopping omeprazole. She returned to soft foods and is tolerating them well. She also tore her bicep tendon and is now post R shoulder surgery 3 1/2 weeks ago. Index Surgery Date of Surgery: 01/29/2022 Surgeon: Deacon Kat MD Surgical Procedure: Revision Pre-surgical weight: 94.8 kg (209 lb) Override Index Surgery Information? No Other Bariatric Surgeries Date of Surgery Surgeon Procedure 10/13/2019 Deacon Kat MD EGD WITH BIOPSY 04/16/2020 Deacon Peña MD LAPAROSCOPY WITH BIOPSY 09/03/2020 Deacon Kat MD LAPAROSCOPIC LONGITUDINAL GASTRECTOMY, GASTRIC RESTRICTIVE PROCEDURE 03/20/2021 Deacon Kat MD LAPAROSCOPY DIAGNOSTIC 01/29/2022 Deacon Kat MD LAPAROSCOPIC ANTECOLIC ANTEGASTRIC GASTRECTOMY,PARTIAL,WITH TAN-EN-Y RECONSTRUCTION Visit: 7 months Today's Visit: Wt 83.5 kg (184 lb) BMI 29.7 kg/m2 BMI 29.70 kg/(m^2) Last Visit: Wt: 79.8 kg (176 lb) BMI: 28.41 kg/(m^2) Total weight loss: 11.3 kg (25 lb) [place] weight: 70.3 kg (154 lb 14.5 oz) Excess weight: 24.5 kg (54 lb 1.5 oz) % of excess body weight lost: 11.3 kg (25 lb) (46.22% of excess weight loss) COMPLICATIONS SINCE LAST VISIT?: NONE EGD 06/23/22 Findings: The examined esophagus was normal. 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 The gastrojejunal anastomosis was characterized by healthy appearing mucosa. This was traversed. The iozsj-et-sknicdc limb was characterized by healthy appearing mucosa. The jejunojejunal anastomosis was characterized by healthy appearing mucosa. The examined jejunum was normal. Impression: - Normal esophagus. - Tan-en-Y gastrojejunostomy with gastrojejunal anastomosis characterized by healthy appearing mucosa. No ulceration or stenosis. - Normal examined jejunum. - No specimens collected. EGD 03/06/22 Findings: The esophagus was normal. 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 The gastrojejunal anastomosis was characterized by congestion, edema, erosion, erythema, friable mucosa and the presence of no stomal ulceration. Anastamosis was approximately 15 mm (created over 40 f bougie). This was traversed. The aasyc-hi-sfvwiae limb was characterized by healthy appearing mucosa. A TTS dilator was passed through the scope. Dilation with a 15-16.5-18 mm anastomotic balloon dilator was performed. The dilation site was examined following endoscope reinsertion and showed mild improvement in luminal narrowing. Estimated blood loss was minimal. Impression: - Normal esophagus. - Tan-en-Y gastrojejunostomy with gastrojejunal anastomosis characterized by congestion, edema, erosion, erythema, friable mucosa and no stomal ulceration. Dilated. - No specimens collected. Recommendation: - Discharge patient to home. - Resume previous diet. - Use a proton pump inhibitor PO BID. DIET INTAKE: Phase V, soft consistency DAILY SUPPLEMENTS: Calcium: included in multivitamin Multivitamin & Minerals: 2 bariatric fusion twice per day Iron Supplement: included in multi-vitamin Vitamin B12: included in multivitamin Vitamin D3: included in multi-vitamin Other: N/A EXERCISE: Limited by recent surgery Rehab for shoulder twice per week Current Outpatient Medications Medication Sig escitalopram oxalate (LEXAPRO) 20 mg tablet Take 1 tablet by mouth once daily. hydrOXYzine HCl (ATARAX) 25 mg tablet TAKE 1 TABLET BY MOUTH TWICE A DAY NEEDED FOR ANXIETY /INSOMNIA linaclotide (LINZESS) 145 mcg capsule Take 1 capsule by mouth DAILY (6 AM). triamcinolone acetonide (KENALOG) 0.1 % ointment Apply on affected areas twice a day. Wednesday through Wednesday until clear. Take a break on the weekends. Avoid armpits, face and groin. Overuse can lead to skin thinning, dyspigmentation, and stretch aguilar. omeprazole (PRILOSEC) 40 mg capsule Take 1 capsule by mouth as needed. acetaminophen (TYLENOL) 500 mg tablet Take 2 tablets by mouth every 6 hours as needed for pain or fever (specify). docusate sodium (COLACE) 100 mg capsule Take 1 capsule by mouth three times daily. decrease the dose or stop for diarrhea simethicone, chewable (MYLICON) 80 mg chewable tablet Take 2 tablets by mouth four times daily as needed. Senna 8.6 mg tab Take 2 tablets by mouth daily at bedtime. decrease the dose or stop for diarrhea polyethylene glycol 3350 (MIRALAX) 17 gram/dose powder Take 17 g by mouth twice daily. reduced the dose or stop if you get diarrhea and restart after 48 hours to maintain 'at least' once a day bowel movement. Dissolve dose in 4 - 8 ounces of liquid and take as directed. topiramate (TOPAMAX) 100 mg tablet Take 100 mg by mouth twice daily. multivitamin tablet Take 1 tablet by mouth. Bariatric chewable 2 a day fluticasone propion/salmeterol (ADVAIR HFA INHALATION) Inhale as instructed. ALBUTEROL INHALATION Inhale as instructed. levothyroxine (SYNTHROID) 100 mcg tablet Take 1 tablet by mouth once daily. liothyronine (CYTOMEL) 5 mcg tablet Take 5 mcg by mouth once daily. traMADol (ULTRAM) 50 mg tablet Take 1 tablet by mouth every 8 hours as needed for pain (if pain is there after useage of tylenol/ gabapentin and robaxin). mirtazapine (REMERON) 15 mg tablet Take 1 tablet by mouth daily at bedtime. No current facility-administered medications for this visit. REVIEW OF SYSTEMS: See HPI + nausea when having GERD sxs Denies nausea, vomiting, dumping syndrome, reactive hypoglycemia, gustatory rhinorrhea, Denies abdominal pain, constipation, diarrhea, melena, hematochezia, Denies paresthesias, gait abnormality, fatigue, weakness, lower extremity edema, and Denies taking NSAIDs PHYSICAL EXAM: BP 118/88 (BP Site: Left Arm, BP Position: Sitting) Pulse 65 Temp 36.4 C (97.5 F) Ht 167.6 cm(5' 6 ) Wt 83.5 kg (184 lb) LMP 08/19/2020 SpO2 99% BMI 29.70 kg/m GENERAL: A&O, pleasant, NAD RESPIRATORY: non labored ABDOMEN: soft, no distention - + tenderness LUQ with palpation NEURO: grossly intact Assessment / PLAN: Abbey Garcia is a 32 year old female who presented today for 7 month post op follow up s/p Revision, sleeve to RYGB for reflux 1. Impaired intestinal absorption - ICD9: 579.9, ICD10: K90.9 (primary diagnosis) - taking recommended vitamins - eating soft diet currently due to worry for dysphagia/pain 2. Esophageal dysphagia - ICD9: 787.29, ICD10: R13.19 / Gastroesophageal reflux disease, unspecified whether esophagitis present - ICD9: 530.81, ICD10: K21.9 - Restart PPI, 40 mg daily to start, if doing well and UGI negative, will try to wean to 20 mg daily - XR UPPER GI ROUTINE DOUBLE CONTRAST/AIR 4. S/P bariatric surgery - ICD9: V45.86, ICD10: Z98.84 - lab check in November DISPOSITION: Return 3-4 months EDUCATION: Encouraged to continue with healthy lifestyle changes and incorporate cardiovascular andresistance training, Discussed weight loss expectations after bariatric and metabolic surgery, Advised PT to avoid NSAIDs, smoking tobacco given increased risk of marginal ulcers, or Discussed importance of protein intake as per the RDN note REFERRALS: N/A LABS: Today: See Epic Orders Breanna Stern APRN.CNP Medical Decision Making: Problems: Low: Stable chronic illness Moderate: 1+ chronic illnesses with change Data: Unique test result(s) reviewed: 2 Unique test(s) ordered: 3+ Risk: Low: Low risk from testing/treatment Medical Decision Making Level: 4 - Moderate documented in this encounterOhiohealth O'[facility]08-04-2023 Nurse Note* Jayla Meza MA - 09/18/2022 3:10 PM EDT What is the reason for your visit today? Patient presents for 7 month post op sleve gastrectomy 01/29/22. Who is your referring physician? Are you having poor oral intake? NO Have you had unintentional weight loss of 15 lbs/7 Kg in the last 3-6 months? Bowels: constipated Wound: n/a Temperature: No Drains: No documented in this encounterOhiohealth O'[facility]06-22-2023 Miscellaneous Notes* Telephone Encounter - Linda Hale RN - 08/06/2022 10:40 AM EDT Thank you, patient notified. * Telephone Encounter - Kasie Avalos MD - 08/06/2022 10:08 AM EDT I agree with Linzess. I signed a prescription for 145mcg per day. Thank you, Kasie Avalos MD * Telephone Encounter - Linda Hale RN - 08/06/2022 8:27 AM EDT Looks like insurance denied the appeal for Mote[employer]. Linzess is pended if you agree with the dosing. Thanks, Linda documented in this encounterOhiohealth O'[facility]06-14-[facility]23 Hospital Discharge instructions Patient Education 07/29/2022 09:09:30 Dietary Guidelines to Help Prevent Kidney Stones Dietary Guidelines to Help Prevent Kidney Stones Kidney stones are deposits of minerals and salts that form inside your kidneys. Your risk of developing kidney stones may be greater depending on your diet, your lifestyle, the medicines you take, and whether you have certain medical conditions. Most people can lower their chances of developing kidney stones by following the instructions below. Your dietitian may give you more specific instructions depending on your overall health and the type of kidney stones you tend to develop. What are tips for following this plan? Reading food labels Choose foods with no salt added or low-salt labels. Limit your salt (sodium) intake to less than 1,500 mg a day. Choose foods with calcium for each meal and snack. Try to eat about 300 mg of calcium at each meal.Foods that contain 200 500 mg of calcium a serving include: ?8 oz (237 mL) of milk, ckzkfkt-itgwtptsvboc-eeapg milk, and calcium- fortifiedfruit juice. Calcium-fortified means that calcium has been added to these drinks. ?8 oz (237 mL) of kefir, yogurt, and soy yogurt. ?4 oz (114 g) of tofu. ?1 oz (28 g) of cheese. ?1 cup (150 g) of dried figs. ?1 cup (91 g) of cooked broccoli. ?One 3 oz (85 g) can of sardines or mackerel. Most people need 1,000 1,500 mg of calcium a day. Talk to your dietitian about how much calcium is recommended for you. Shopping Buy plenty of fresh fruits and vegetables. Most people do not need to avoid fruits and vegetables, even if these foods contain nutrients that may contribute to kidney stones. When shopping for convenience foods, choose: ?Whole pieces of fruit. ?Pre-made salads with dressing on the side. ?Low-fat fruit and yogurt smoothies. Avoid buying frozen meals or prepared deli foods. These can be high in sodium. Look for foods with live cultures, such as yogurt and kefir. Choose high-fiber grains, such as whole-wheat breads, oat bran, and wheat cereals. Cooking Do not add salt to food when cooking. Place a salt shaker on the table and allow each person to addhis or her own salt to taste. Use vegetable protein, such as beans, textured vegetable protein (TVP), or tofu, instead of meat inpasta, casseroles, and soups. Meal planning Eat less salt, if told by your dietitian. To do this: ?Avoid eating processed or pre-made food. ?Avoid eating fast food. Eat less animal protein, including cheese, meat, poultry, or fish, if told by your dietitian. To dothis: ?Limit the number of times you have meat, poultry, fish, or cheese each week. Eat a diet free of meat at least 2 days a week. ?Eat only one serving each day of meat, poultry, fish, or seafood. ?When you prepare animal protein, cut pieces into small portion sizes. For most meat and fish, one serving is about the size of the palm of your hand. Eat at least five servings of fresh fruits and vegetables each day. To do this: ?Keep fruits and vegetables on hand for snacks. ?Eat one piece of fruit or a handful of berries with breakfast. ?Have a salad and fruit at lunch. ?Have two kinds of vegetables at dinner. Limit foods that are high in a substance called oxalate. These include: ?Spinach (cooked), rhubarb, beets, sweet potatoes, and [place] chard. ?Peanuts. ?Potato chips, macedonian fries, and baked potatoes with skin on. ?Nuts and nut products. ?Chocolate. If you regularly take a diuretic medicine, make sure to eat at least 1 or 2 servings of fruits or vegetables that are high in potassium each day. These include: ?Avocado. ?Banana. ?[place], prune, carrot, or tomato juice. ?Baked potato. ?Cabbage. ?Beans and split peas. Lifestyle Drink enough fluid to keep your urine pale yellow. This is the most important thing you can do. Spread your fluid intake throughout the day. If you drink alcohol: ?Limit how much you use to: ?0 1 drink a day for women who are not . ?0 2 drinks a day for men. ?Be aware of how much alcohol is in your drink. In the [place] one drink equals one 12 oz bottle of beer (355 mL), one 5 oz glass of wine (148 mL), or one 1 oz glass of hard liquor (44 mL). Lose weight if told by your health care provider. Work with your dietitian to find an eating plan and weight loss strategies that work best for you. General information Talk to your health care provider and dietitian about taking daily supplements. You may be told thefollowing depending on your health and the cause of your kidney stones: ?Not to take supplements with vitamin C. ?To take a calcium supplement. ?To take a daily probiotic supplement. ?To take other supplements such as magnesium, fish oil, or vitamin B6. Take qntf-uhe-giuizrx and prescription medicines only as told by your health care provider. These include supplements. What foods should I limit? Limit your intake of the following foods, or eat them as told by your dietitian. Vegetables Spinach. Rhubarb. Beets. Canned vegetables. Pickles. Olives. Baked potatoes with skin. Grains Wheat bran. Baked goods. Salted crackers. Cereals high in sugar. Meats and other proteins Nuts. Nut butters. Large portions of meat, poultry, or fish. Salted, precooked, or cured meats, such as sausages, meat loaves, and hot dogs. Dairy Cheese. Beverages Regular soft drinks. Regular vegetable juice. Seasonings and condiments Seasoning blends with salt. Salad dressings. Soy sauce. Ketchup. Barbecue sauce. Other foods Canned soups. Canned pasta sauce. Casseroles. Pizza. Lasagna. Frozen meals. Potato chips. Nigerien fries. The items listed above may not be a complete list of foods and beverages you should limit. Contact a dietitian for more information. What foods should I avoid? Talk to your dietitian about specific foods you should avoid based on the type of kidney stones youhave and your overall health. Fruits Grapefruit. The item listed above may not be a complete list of foods and beverages you should avoid. Contact adietitian for more information. Summary Kidney stones are deposits of minerals and salts that form inside your kidneys. You can lower your risk of kidney stones by making changes to your diet. The most important thing you can do is drink enough fluid. Drink enough fluid to keep your urine pale yellow. Talk to your dietitian about how much calcium you should have each day, and eat less salt and animal protein as told by your dietitian. This information is not intended to replace advice given to you by your health care provider. Make sure you discuss any questions you have with your health care provider. Document Revised: 10/13/2021 Document Reviewed: 10/13/2021 [employer] Patient Education 2022 [facility]. Follow Up Care 06/30/2022 09:39:02 With:Nasim JOHNSON, Rajni Ballesteros, URL, URO Address: When: Unknown [facility] 06-13-2023 NoteSelect Medical [facility]06-13-2023 Instructions* Patient Instructions* Bernardo Brenner MD - 07/28/2022 2:20 PM EDT For rash - Discussed potential etiology, clinical course and management - Given distribution ( areas in direct contact with clothes) favor an eczematous dermatitis such asan allergic contact dermatitis. Given prodromal symptoms, a viral infection is also a possibility. Plan: - Recommend to consult allergy. Referral placed. - Labwork today: CBC with diff and CMP - Start Triamcinolone 0.1% ointment. Apply on affected areas twice a day. Wednesday through Wednesday until clear. Take a break on the weekends. Avoid armpits, face and groin. Overuse can lead to skin thinning, dyspigmentation, and stretch aguilar. - For face - start hydrocortisone 2.5% twice a day. Wednesday through Wednesday until clear. Take a breakon the weekends. Do not get into eyes. - Continue Atarax as prescribed - stop if making you too drowsy - Can use a daily zyrtec in the morning. - Avoid alcohol with antihistamines. - Let us know if rash does not improve or gets worse, we can get you in sooner. - In reserve: skin biopsy Advised to go to ED if you get lip/tongue swelling, difficulty breathing or swallowing. Advised to go to ED if blistering or peeling skin. documented in this encounterOhiohealth O'[facility]len[facility]06-13-2023 History of Present illness Narrative* Bernardo Brenner MD - 07/28/2022 1:00 PM EDT EST PATIENT CHIEF COMPLAINT: Rash HISTORY OF PRESENT ILLNESS: Abbey Garcia is a 32 year old female with a complex medical history including hypothyroidism and asthma and who presents for evaluation/ follow up of facial rash and swelling. Pt most recently seen in ED on 07/22/22 for facial swelling/rash. Symptoms started 07/18/22 with R eye swelling and R facial rash. Took benadryl (helped with itching).The next day (07/19/22) developed generalized pruritus and rash. Was seen 07/20/22 at outside hospital and given a kenalog injection and medrol dose pack (finished 07/24), without improvement in symptoms. Was seen in ED 07/22/22 at which time differential diagnosis was broad - viral vs. Allergic vs. AI. InED pt reported SOB, R sided headache and R eye pain (denied vision changes, eye redness, drainage).Denied new exposures, medications, travel, or sick contacts. Ophthalmology was consulted and eye symptoms treated as allergic conjunctivitis. Currently taking atarax with some improvement. Labwork (CBC, BMP, mono test) were performed a in ED. Patient reports using sensitive skin soaps and detergents. Today she reports: -Still having headaches, - Right eye pain has not resolved, reports it is worse with light - Following up with ophthalmology - using eyedrops for dryness - she is seeing them in 2 weeks -Patient reports she has had shingles three times in the right eye Rash #1 Location: generalized Duration: since July 18 Symptoms: burning, itching, joint pain, aching Current treatment: CeraVe cream, Atarax every 4-6 hours, eyedrops for dry Past treatment: Medrol dose pack, benadryl Personal Dermatologic History History of skin cancer: No History of atypical nevi: No History of chronic skin disease: No History of allergic rhinitis / asthma: Yes asthma Family History History of skin cancer: Yes Brother at 18 years old with melanoma (treated) History of chronic skin disease: No History autoimmune diseases: Yes Paternal grandmother and mother with RA Social History Tobacco use: No EtOh use: No 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 Arthritis Asthma Class 1 obesity without serious comorbidity with body mass index (BMI) of 33.0 to 33.9 in adult 09/25/2019 Gastric ulcer 2013 GERD (gastroesophageal reflux disease) History of IBS Hypertension Hypothyroid RICHAR on CPAP wears mask every night PCOS (polycystic ovarian syndrome) PONV (postoperative nausea and vomiting) 01/29/2022 Ventral hernia without obstruction or gangrene REVIEW OF SYSTEMS: Skin as per HPI Medications Current Outpatient Medications Medication Sig prucalopride (MOTEGRITY) 2 mg tab tablet Take 1 tablet (2 mg) by mouth once daily. omeprazole (PRILOSEC) 40 mg capsule Take 1 capsule by mouth as needed. acetaminophen (TYLENOL) 500 mg tablet Take 2 tablets by mouth every 6 hours as needed for pain or fever (specify). docusate sodium (COLACE) 100 mg capsule Take 1 capsule by mouth three times daily. decrease the dose or stop for diarrhea simethicone, chewable (MYLICON) 80 mg chewable tablet Take 2 tablets by mouth four times daily as needed. Senna 8.6 mg tab Take 2 tablets by mouth daily at bedtime. decrease the dose or stop for diarrhea polyethylene glycol 3350 (MIRALAX) 17 gram/dose powder Take 17 g by mouth twice daily. reduced the dose or stop if you get diarrhea and restart after 48 hours to maintain 'at least' once a day bowel movement. Dissolve dose in 4 - 8 ounces of liquid and take as directed. traMADol (ULTRAM) 50 mg tablet Take 1 tablet by mouth every 8 hours as needed for pain (if pain is there after useage of tylenol/ gabapentin and robaxin). escitalopram oxalate (LEXAPRO) 5 mg tablet Take 1 tablet by mouth once daily. Take with 10 mg tablet. mirtazapine (REMERON) 15 mg tablet Take 1 tablet by mouth daily at bedtime. escitalopram oxalate (LEXAPRO) 10 mg tablet Take 1 tablet by mouth once daily. hydrOXYzine HCl (ATARAX) 25 mg tablet TAKE 1 TABLET BY MOUTH TWICE A DAY NEEDED FOR ANXIETY/INSOMNIA topiramate (TOPAMAX) 100 mg tablet Take 100 mg by mouth twice daily. multivitamin tablet Take 1 tablet by mouth. Bariatric chewable 2 a day fluticasone propion/salmeterol (ADVAIR HFA INHALATION) Inhale as instructed. ALBUTEROL INHALATION Inhale as instructed. levothyroxine (SYNTHROID) 100 mcg tablet Take 1 tablet by mouth once daily. liothyronine (CYTOMEL) 5 mcg tablet Take 5 mcg by mouth once daily. No current facility-administered medications for this visit. PHYSICAL EXAM: General: awake, alert, no acute distress Neuropsych: appropriate mood and affect Skin: Skin exam was performed today including the following: head and face, scalp, neck, chest, abdomen, back, bilateral upper extremities, bilateral lower extremities. Pertinent findings include: -Erythematous thin plaques on the R arm and abdomen -Photos provided by patient with R periocular edema -No active lesion on the fingers/hands ASSESSMENT & PLAN: # Rash and nonspecific skin eruption -Differential diagnosis includes: allergic contact dermatitis vs. Viral exanthem. Less likely eczematous drug reaction or autoimmune connective tissue disease. - Given distribution ( areas in direct contact with clothes) favor an eczematous dermatitis such asan allergic contact dermatitis. Given prodromal symptoms, a viral infection is also a possibility. Plan: - Recommend to consult allergy. Referral placed. - Labwork today: CBC with diff and CMP - For body: Start Triamcinolone 0.1% ointment. Apply on affected areas twice a day. Wednesday through Wednesday until clear. Take a break on the weekends. Avoid armpits, face and groin. Overuse can lead toskin thinning, dyspigmentation, and stretch aguilar. - For face and ears: Start Hydrocortisone 2.5% cream. Apply on affected areas twice a day. Wednesday through Wednesday until clear. Take a break on the weekends. Avoid armpits and groin. Overuse can lead to skin thinning, dyspigmentation, and stretch aguilar. - Continue Atarax as prescribed - stop if making you too drowsy -Can add a daily zyrtec in the morning. -Avoid alcohol use with antihistamines. - Let us know if rash does not improve or gets worse, we can get you in sooner. - In reserve: skin biopsy Advised to go to ED if you get lip/tongue swelling, difficulty breathing or swallowing. Advised to go to ED if blistering or peeling skin. Return to Dermatology clinic in: 2 weeks Raymundo Taylor MD Dermatology Resident The documentation for this note was completed by Dary Murray RN acting as scribe for Bernardo Brenner MD. July 28, 2022 12:53 PM. Dary Murray RN Attestation: I agree with the Chief Complaint, ROS, and Past Histories independently gathered by the clinical underwriting support manager, and the remaining scribed note accurately describes my personal service to the patient. I saw and evaluated Abbey Garcia, as well as developed and discussed the assessment and plan with the Resident. I have reviewed the Resident's note and agree with the history and physical examinationas described, as well as the assessment and plan of care. The resident's note was annotated by me as needed to reflect my direct input. There were no procedures performed during this patient's visit. Bernardo Brenner MD documented in this encounterOhiohealth [facility]06-08-2023 Miscellaneous Notes* Telephone Encounter - Linda Hale RN - 07/23/2022 12:40 PM EDT Spoke to appeals department for another review. Stated we are trying Motegr[employer] to combat both Constipation & Nausea. We are doing this in hopes of reducing frequent ED visits and possible admits.Noted that there were 2 ED visits within two weeks of each other for Intractable nausea in the month of June as well. Will wait for appeals decision. Thanks! * Telephone Encounter - Grecia Wallace - 07/23/2022 11:10 AM EDT Fax received denying [employer] authorization Full letter scanned in Can'tWait for review Grecia Wallace * Telephone Encounter - Linda Hale RN - 07/23/2022 9:58 AM EDT PA started. Office notes attached to include Constipation & nausea. Awaiting response via CMM. If more information is requested or need to speak with someone, will advise that in addition to constipation, this will help for nausea as well and will reduce ED visits & admissions, and go from there. Linda Hale RN * Telephone Encounter - Grecia Wallace - 07/23/2022 8:49 AM EDT Fax received from [facility] to notify M[employer] not covered, will need PA or prescribe alternative: [place], Noreen or Veronique Fax scanned in Can'tWait Grecia Wallace documented in this encounterOhiohealth O[facility]06-07-2023 NoteSelect Medical [facility]06-07-2023 History of Present illness Narrative* Donnie David MD - 07/22/2022 5:41 PM EDT Conjunctivitis, Allergic 4 days ago, developed right sided blanching, confluent red rash on right side of face. Very itchy. No new medications, unusual contact, farmers were sprarying mera Has kids at home - none of them have anything unusual No bug bites No APD, no EOM restirciton, hertels 15/15 at 97, full color plates - no orbital signs She was given a medrol dose-lalito with improvement Also taking benadryl with improvement Over last 3 days it has progressed to the left side of face Lid eversion with papillae and follicles Debris in tear film No corneal staining No cell, vitritis DFE unremarkable Could represent allergic response given papillae, itching, otherwise stable eye exam. Multiple forms of conjunctivitis exist, however, given duration and inciting factors at this time favor allergy Would recommend dermatology input into spreading rash Patanol (olpatadine) BID both eyes If not, ATS are ok. Reviewed drops Follow up in 2 weeks to check response with cornea provider or optom- closer to [place] - Will sendmessage Return precautions were discussed in detail Plan reviewed with the patient who verbalizes understanding Donnie David MD Ophthalmology Resident documented in this encounterOhiohealth O[facility]06-07-2023 NoteSelect Medical [facility]06-07-2023 NoteSelect Medical [facility]06-07-2023 History of Present illness Narrative* Kasie Avalos MD - 07/22/2022 10:20 AM EDT Images from the original note were not included. DEPARTMENT OF GASTROENTEROLOGY - FOLLOW UP VISIT HISTORY OF PRESENT ILLNESS Abbey Garcia is a 32 year old female who presents today for follow up of chronic GI symptoms including nausea, vomiting and now constipation. Last seen by me 04/12/20 Interval Events: - She underwent SG to RYGB conversion in 01/2022, and that helped with the hearburn and the nausea.No longer using Omeprazole. Overall she has been doing pretty well and quality of life has been much better. Has lost more weight. - She has a rash on her face and upper extremities. Also feels tired, nauseated, has a sore throat,a dry cough and pain upon swallowing --> advised urgent care visit vs ER for eval ---> parvovirus? EBV? - She is now having issues with constipation. She has always had constipation but it got much worsethe past 2 months. She is on Miralax daily and on that she has a BM once every 2-3 days and her BM is hard and lumpy and difficult to pass with associated pain on the left side. He also tried senna with no excellent outcomes. Colace also does not help. She tried Mg without much help. She does have trouble emptying her rectum. - She was admitted in June 2022 for intractable nausea and vomiting. CT scan with some constipation.EGD in June 2022 with healthy appearing anastomoses and normal gastric remnant. She was treated for constipation and felt better. Currently, no longer having nausea but has it here and there. - Previously tried to get off the Topamax and this did not help much with the nausea, now back on it.No abdominal pain. - She had an empiric dilation of her GJ anastomosis in Feb [address] Kat for nausea and vomiting right after eating. She tells me the dilaiton helped TEST RESULTS SINCE LAST VISIT XR ABD 06/22/22 Findings: GAS CONTAINING LOOPS OF NORMAL CALIBER LARGE AND SMALL BOWEL ARE SEEN. RIGHT UPPER QUADRANT SURGICAL CLIPS. CT ABD/PEL 06/20/22 Results: Liver: Bilobar hepatic cysts and subcentimeter hypoattenuating lesions which are too small to characterize. Biliary: Mild intrahepatic and extrahepatic biliary dilation, likely postcholecystectomy change. Spleen: No mass. No splenomegaly. Pancreas: No mass or duct dilation. Adrenals: No mass. Kidneys: Punctate 2 mm right lower pole nonobstructive calculus (2:55). No hydronephrosis. Bilateral subcentimeter hypoattenuating lesions are present that are too small to characterize. GI tract: Status post gastric bypass. No bowel dilation or wall thickening. Lymph nodes: No abdominal or pelvic lymphadenopathy. Mesentery/Peritoneum: No ascites or mass. Retroperitoneum: No mass. Vasculature: - Abdominal aorta and iliac arteries: No aneurysm. - Celiac and SMA: Patent without stenosis. - Portal venous system (SMV, splenic vein, portal vein and branches): Patent. - Hepatic veins: Patent. Pelvis: No mass, ascites or fluid collection. Hysterectomy. Bones/Soft Tissues: No destructive osseous lesion. Mild degenerative changes. Lower thorax: Unremarkable. Crop Scout (topogram) images: No additional findings. CT ABD/PEL 06/16/22 Results: Abdomen / Pelvis: Liver: Multiple hepatic cysts and too small to characterize hepatic hypodense lesions appear stable. Biliary: S/p cholecystectomy. Spleen: No splenomegaly. Pancreas: Unremarkable. Adrenals: No mass. Kidneys: Punctate RIGHT lower pole calculus (2:48). 3 mm RIGHT lateral lower pole cortical hyperdense lesion, likely hyperdense cyst. No LEFT renal calculus or hydronephrosis. GI Tract: Postsurgical changes related to gastric bypass surgery. No bowel dilation. Appendix is surgically absent. There is diverticulosis. No changes of diverticulitis. Lymph Nodes: No lymphadenopathy. Mesentery/peritoneum: No ascites. Retroperitoneum: No mass. Vasculature: No abdominal aortic or iliac artery aneurysm. Pelvis: No mass or ascites. Bones/Soft Tissues: No acute abnormality. Lower thorax: Unremarkable. Crop Scout (topogram) images: No additional findings. US ABD 02/01/21 Result: Ultrasound images obtained of the area of bulging along the central supraumbilical abdomen demonstrate probable fat-containing epigastric hernia with an approximately 1.5 cm neck. No evidence of herniated peristalsing bowel loops. XR UPPER GI SINGLE CONTRAST 12/27/20 Results: Caliber: Normal Distal Stricture/Ring: Absent Motility: Normal Hiatal Hernia: Tubularized gastric remnant consistent with sleeve gastrostomy. No demonstrated hiatal hernia. Reflux: Not elicited despite provocative maneuvers. Other Findings: A 13 mm barium tablet passed into the stomach. XR ABD 12/21/20 Result: Multiple air-filled nondilated loops of small and large bowel. Previously noted enteric feeding tube is no longer present. Surgical clips right upper quadrant. No definite pneumoperitoneum. GES 04/30/20 Results: NORMAL RATE OF GASTRIC EMPTYING OF SOLID MEAL. Solid study demonstrates: - 53% gastric retention at 1hr (normal range, 37-90%), - 14% gastric retention at 2hr (normal range, 30-60%), and - 1% gastric retention at 4hr (normal range, 0-10%). There is no evidence of accelerated emptying of gastric contents, with 53% retention at 1hr (rapid emptying is <30% retention at 1hr). CT ABD/PEL 04/11/20 Procedures: EGD 06/23/22 Findings: The examined esophagus was normal. 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 The gastrojejunal anastomosis was characterized by healthy appearing mucosa. This was traversed. The ernfk-ce-pkigvmy limb was characterized by healthy appearing mucosa. The jejunojejunal anastomosis was characterized by healthy appearing mucosa. The examined jejunum was normal. EGD 03/06/22 Findings: The esophagus was normal. 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 The gastrojejunal anastomosis was characterized by congestion, edema, erosion, erythema, friable mucosa and the presence of no stomal ulceration. Anastamosis was approximately 15 mm (created over 40 f bougie). This was traversed. The [id number]-[id number] limb was characterized by healthy appearing mucosa. A TTS dilator was passed through the scope. Dilation with a 15-16.5-18 mm anastomotic balloon dilator was performed. The dilation site was examined following endoscope reinsertion and showed mild improvement in luminal narrowing. Estimated blood loss was minimal. EGD W/HUERTA INSERT OFF MEDS 12/25/21 Findings: LA Grade B (one or more mucosal breaks greater than 5 mm, not extending between the tops of two mucosal folds) esophagitis with no bleeding was found 36 to 37 cm from the incisors. Biopsies were taken with a cold forceps for histology. The HUERTA capsule was activated and then calibrated by submersion into the appropriate buffer solutions. The HUERTA capsule with delivery system was introduced through the mouth and advanced into the esophagus, such that the HUERTA pH capsule was positioned 31 cm from the incisors, which was 6 cm proximal to the GE junction. The HUERTA pH capsule was then deployed and attached to the esophageal mucosa. The delivery system was then withdrawn. Endoscopy was utilized for probe placement and diagnostic evaluation. The scope was reinserted to evaluate placement of the HUERTA capsule. Visualization showed the HUERTA capsule to be in an appropriate position. Evidence of a sleeve gastrectomy was found in the stomach. The examined duodenum was normal. FINAL DIAGNOSIS A. Esophagus, biopsy: - Mildly inflamed squamous mucosa and inflamed gastric mucosa compatible with histologic features of reflux esophagitis; negative for intestinal metaplasia and dysplasia. PH HUERTA OFF MEDS 12/25/21 Interpretations Overall study abnormal. Increase acid exposure in supine position day 2. SI shows positive correlation to heartburn and regurg/reflux/cough reported. Day 1 Period Durations (HH:MM) Total Upright Supine Total Time 24:00 14:51 09:09 Analysis Time 21:40 12:32 09:09 Acid Reflux Analysis Total Upright Supine Acid exposure time (HH:MM) 00:42 00:39 00:03 Acid exposure time (%) 3.2 5.2 0.5 Number of refluxes 35 28 7 Number of long refluxes 4 4 0 Longest reflux (min) 9.0 9.0 1.8 DeMeester Score Score Normal* Ch 1 13.2 <14.7 * 95th percentile Day 2 Period Durations (HH:MM) Total Upright Supine Total Time 23:16 12:34 10:42 Analysis Time 21:51 11:14 10:37 Acid Reflux Analysis Total Upright Supine Acid exposure time (HH:MM) 02:04 00:35 01:29 Acid exposure time (%) 9.4 5.2 13.9 Number of refluxes 41 26 15 Number of long refluxes 4 1 3 Longest reflux (min) 47.9 17.3 47.9 DeMeester Score Score Normal* Ch 1 36.7 <14.7 * 95th percentile PH IMPEDANCE INSERT ON [facility] 01/07/21 Interpretation / Findings : Abnormal study. Increase in total acid exposure due to reflux noted in both upright and supine position. SI shows negative correlation to Heartburn: 0/4 and Chest Pain: 0/4. Esophageal Manometry 01/07/21 Interpretation: Normal LES pressure and relaxation Supine: Normal Peristalsis in 10/10 swallows Sitting: Normal Peristalsis in 2/5 swallows Failed peristalsis in 2/5 swallows Weak peristalsis in 1/5 swallows Impressions Normal High resolution Esophageal Manometry EGD 12/25/20 Findings: The examined esophagus was normal. A medium-sized hiatal hernia was present. Evidence of a sleeve gastrectomy was found in the stomach. Scattered moderate inflammation characterized by erythema, friability and granularity was found in the stomach. Biopsies were taken with a cold forceps for histology. The examined duodenum was normal. CONVERTED FINAL DIAGNOSIS Stomach, biopsy - Erosive reactive gastropathy (see comment). KL/mm 12/27/2020 CONVERTED DIAGNOSIS COMMENT An H. pylori immunostain has been ordered and the results will be reported separately as an addendum Liver Biopsy 04/16/20 CONVERTED FINAL DIAGNOSIS Liver, biopsy Essentially normal hepatic parenchyma; see comment. CONVERTED DIAGNOSIS COMMENT The portal tracts contain a physiologic inflammatory infiltrate composed primarily of rare lymphocytes and ceroid-laden histiocytes. There is no interface activity. [place] bile duct branches are identified in nearly all portal tracts and are appropriately sized relative to the caliber of the accompanying hepatic artery branches. The bile ducts are uninflamed and show no evidence of injury. Within the lobules, less than 5% of hepatocytes are involved by large droplet macrovesicular steatosis (minimal). There is no significant lobular inflammation, cholestasis, stainable hepatocellular iron (iron stain), or PAS/D-positive cytoplasmic globules (PAS/D stain). There is no significant fibrosis (trichrome stain). Collectively, these histologic findings are that of essentially normal hepatic Colonoscopy 04/09/20 Findings: The terminal ileum appeared normal. The entire examined colon appeared normal on direct and retroflexion views. Random biopsies obtained from the right and left colon to assess for collagenous / lymphocytic colitis. CONVERTED FINAL DIAGNOSIS 1. Colon, right, biopsy (A) - Colonic mucosa with no diagnostic alteration. 2. Colon, left biopsy (B) - Colonic mucosa with no diagnostic alteration. KL/dkm 04/10/2020 Hemoglobin (g/dL) Date Value 06/22/2022 13.4 03/18/2021 11.1 Hematocrit (%) Date Value 06/22/2022 38.4 03/18/2021 36.2 WBC (k/uL) Date Value 06/22/2022 4.20 03/18/2021 3.60 Glucose (mg/dL) Date Value 06/24/2022 92 03/18/2021 61 Potassium (mmol/L) Date Value 06/24/2022 4.0 03/18/2021 4.2 Sodium (mmol/L) Date Value 06/24/2022 141 03/18/2021 139 Chloride (mmol/L) Date Value 06/24/2022 108 03/18/2021 105 CO2 (mmol/L) Date Value 06/24/2022 24 03/18/2021 24 Creatinine (mg/dL) Date Value 06/24/2022 0.85 03/18/2021 0.82 BUN (mg/dL) Date Value 06/24/2022 9 03/18/2021 10 Anion Gap (mmol/L) Date Value 06/24/2022 9 03/18/2021 10 Calcium (mg/dL) Date Value 03/18/2021 9.0 Calcium, Total (mg/dL) Date Value 06/24/2022 8.5 Protein, Total (g/dL) Date Value 06/24/2022 5.8 03/18/2021 6.8 Albumin (g/dL) Date Value 06/24/2022 3.8 03/18/2021 4.2 Bilirubin, Total (mg/dL) Date Value 06/24/2022 0.4 03/18/2021 0.3 Alkaline Phosphatase (U/L) Date Value 06/24/2022 59 03/18/2021 61 AST (U/L) Date Value 06/24/2022 35 03/18/2021 26 ALT (U/L) Date Value 06/24/2022 21 03/18/2021 14 Component Latest Ref Rng & Units 06/22/2022 CRP <0.9 mg/dL <0.3 Component Latest Ref Rng & Units 06/12/2022 IgG 700 - 1,600 mg/dL 861 IgA 70 - 400 mg/dL 99 IgM 40 - 230 mg/dL 140 Component Latest Ref Rng & Units 06/12/2022 MISAEL Negative Negative Component Latest Ref Rng & Units 06/12/2022 Folate >4.7 ng/mL 6.8 Component Latest Ref Rng & Units 03/18/2021 TSH 0.270 - 4.200 uU/mL 1.310 Current Outpatient Medications Medication Sig Dispense Refill omeprazole (PRILOSEC) 40 mg capsule Take 1 capsule by mouth as needed. acetaminophen (TYLENOL) 500 mg tablet Take 2 tablets by mouth every 6 hours as needed for pain or fever (specify). docusate sodium (COLACE) 100 mg capsule Take 1 capsule by mouth three times daily. decrease the dose or stop for diarrhea 90 capsule 0 simethicone, chewable (MYLICON) 80 mg chewable tablet Take 2 tablets by mouth four times daily as needed. 120 tablet 1 Senna 8.6 mg tab Take 2 tablets by mouth daily at bedtime. decrease the dose or stop for diarrhea 60 tablet 0 polyethylene glycol 3350 (MIRALAX) 17 gram/dose powder Take 17 g by mouth twice daily. reduced the dose or stop if you get diarrhea and restart after 48 hours to maintain 'at least' once a day bowel movement. Dissolve dose in 4 - 8 ounces of liquid and take as directed. 507 g 1 escitalopram oxalate (LEXAPRO) 5 mg tablet Take 1 tablet by mouth once daily. Take with 10 mg tablet. 90 tablet 0 mirtazapine (REMERON) 15 mg tablet Take 1 tablet by mouth daily at bedtime. 90 tablet 0 escitalopram oxalate (LEXAPRO) 10 mg tablet Take 1 tablet by mouth once daily. 90 tablet 0 hydrOXYzine HCl (ATARAX) 25 mg tablet TAKE 1 TABLET BY MOUTH TWICE A DAY NEEDED FOR ANXIETY/INSOMNIA 180 tablet 0 topiramate (TOPAMAX) 100 mg tablet Take 100 mg by mouth twice daily. multivitamin tablet Take 1 tablet by mouth. Bariatric chewable 2 a day fluticasone propion/salmeterol (ADVAIR HFA INHALATION) Inhale as instructed. ALBUTEROL INHALATION Inhale as instructed. levothyroxine (SYNTHROID) 100 mcg tablet Take 1 tablet by mouth once daily. 90 tablet 3 liothyronine (CYTOMEL) 5 mcg tablet Take 5 mcg by mouth once daily. traMADol (ULTRAM) 50 mg tablet Take 1 tablet by mouth every 8 hours as needed for pain (if pain is there after useage of tylenol/ gabapentin and robaxin). 10 tablet 0 No current facility-administered medications for this visit. ALLERGIES Allergen Reactions Adhesive Tape-Silic* Intolerance Sensitive to certain adhesive tapes. Redness and itchy. Codeine GI Upset Nsaids (Non-Steroid* Contraindication-Medical Surgical S/p RYGB PAST MEDICAL HISTORY Heart Disease: no Lung Disease: asthma Liver problems: no Thyroid disease: yes Kidney stones: yes Depression or other mental illness: yes depression and anxiety PHYSICAL EXAMINATION BP 136/89 Pulse 72 Temp 98.1 Ht 5' 6 (1.68m) Wt 176 lb 3.2 oz (79.9kg) SpO2 100% LMP 08/19/2020 BMI 28.45 kg/(m^2). General Appearance: alert, oriented x 3, pleasant and in no acute distress Eyes: rash on upper eyelid and face Abdomen: not distended, normal bowel sounds, soft and depressible, no guarding or rebound, no palpable mass, no organomegaly, non tender Rectal exam: deferred Extremities: no cyanosis or edema Skin: no jaundice, no spider angiomas, no palmar erythema Neuro: alert, oriented x 3, pleasant and in no acute distress Assessment IMPRESSION Abbey Garcia is a 29 year old female with PMH significant for anxiety and depression, hypothyroidism, PCOS (started on Metformin when she was 14), s/p cholecystectomy in 2013 and recent appendectomy,s/p SG with conversion to RYGB in Jan 2022 for heartburn and N/V. Prior to surgery, she was on TF at one point. N/V all resolved. She would like to address constipation today. Interval Events as follows: - She underwent SG to RYGB conversion in 01/2022, and that helped with the hearburn and the nausea.No longer using Omeprazole. Overall she has been doing pretty well and quality of life has been much better. Has lost more weight. - She has a rash on her face and upper extremities. Also feels tired, nauseated, has a sore throat,a dry cough and pain upon swallowing --> advised urgent care visit vs ER for eval ---> parvovirus? EBV? - She is now having issues with constipation. She has always had constipation but it got much worsethe past 2 months. She is on Miralax daily and on that she has a BM once every 2-3 days and her BM is hard and lumpy and difficult to pass with associated pain on the left side. He also tried senna with no excellent outcomes. Colace also does not help. She tried Mg without much help. She does have trouble emptying her rectum. - She was admitted in June 2022 for intractable nausea and vomiting. CT scan with some constipation.EGD in June 2022 with healthy appearing anastomoses and normal gastric remnant. She was treated for constipation and felt better. Currently, no longer having nausea but has it here and there. - Previously tried to get off the Topamax and this did not help much with the nausea, now back on it.No abdominal pain. - She had an empiric dilation of her GJ anastomosis in Feb [address] Kat for nausea and vomiting right after eating. She tells me the dilaiton helped PLAN (K59.00) Constipation, unspecified constipation type (primary encounter diagnosis) (R11.0) Nausea - Given that she is not responding to OTC laxatives, we will try Motegrity as it will also help with the nausea. If not covered by insurance, will plan on Linzess. - ARM to rule out DD which seems possible given Sx and need to use and stool to help evacuate better (R21) Rash of face (R59.9) Enlarged lymph nodes She has a rash on her face and upper extremities. Also feels tired, nauseated, has a sore throat, ludy cough and pain upon swallowing --> advised urgent care visit vs ER for eval ---> parvovirus? EBV? Plan is to follow up in six months. Kasie Avalos MD July 22, 2022 documented in this encounter[facility] Note[facility] History of Past illness Narrative* Problem Noted Date Resolved Date Intractable nausea and vomiting 06/20/2022 06/23/2022 Acute abdominal pain 12/21/2020 06/23/2022 Obesity 09/03/2020 11/29/2020 Abdominal pain 02/01/2020 04/08/2020 Moderate episode of recurrent major depressive d isorder 11/21/2019 01/03/2020 Obesity, Class II, BMI 35-39.9 10/13/2019 1 Last Assessment & Plan: Assessment: BMI 38.74 documented as of this encounter (statuses as of 07/22/2022) [facility] History of Past illness Narrative* Problem Noted Date Resolved Date Intractable nausea and vomiting 06/20/2022 06/23/2022 Acute abdominal pain 12/21/2020 06/23/2022 Obesity 09/03/2020 11/29/2020 Abdominal pain 02/01/2020 04/08/2020 Moderate episode of recurrent major depressive d isorder 11/21/2019 01/03/2020 Obesity, Class II, BMI 35-39.9 10/13/2019 1 Last Assessment & Plan: Assessment: BMI 38.74 documented as of this encounter (statuses as of 07/22/2022) [facility] of Past illness Narrative* Problem Noted Date Resolved Date Intractable nausea and vomiting 06/20/2022 06/23/2022 Acute abdominal pain 12/21/2020 06/23/2022 Obesity 09/03/2020 11/29/2020 Abdominal pain 02/01/2020 04/08/2020 Moderate episode of recurrent major depressive d isorder 11/21/2019 01/03/2020 Obesity, Class II, BMI 35-39.9 10/13/2019 1 Last Assessment & Plan: Assessment: BMI 38.74 documented as of this encounter (statuses as of 07/23/2022) [facility] of Past illness Narrative* Problem Noted Date Resolved Date Intractable nausea and vomiting 06/20/2022 06/23/2022 Acute abdominal pain 12/21/2020 06/23/2022 Obesity 09/03/2020 11/29/2020 Abdominal pain 02/01/2020 04/08/2020 Moderate episode of recurrent major depressive d isorder 11/21/2019 01/03/2020 Obesity, Class II, BMI 35-39.9 10/13/2019 1 Last Assessment & Plan: Assessment: BMI 38.74 documented as of this encounter (statuses as of 07/23/2022) [facility] of Past illness Narrative* Problem Noted Date Resolved Date Intractable nausea and vomiting 06/20/2022 06/23/2022 Acute abdominal pain 12/21/2020 06/23/2022 Obesity 09/03/2020 11/29/2020 Abdominal pain 02/01/2020 04/08/2020 Moderate episode of recurrent major depressive d isorder 11/21/2019 01/03/2020 Obesity, Class II, BMI 35-39.9 10/13/2019 1 Last Assessment & Plan: Assessment: BMI 38.74 documented as of this encounter (statuses as of 08/03/2022) [facility] of Past illness Narrative* Problem Noted Date Resolved Date Intractable nausea and vomiting 06/20/2022 06/23/2022 Acute abdominal pain 12/21/2020 06/23/2022 Obesity 09/03/2020 11/29/2020 Abdominal pain 02/01/2020 04/08/2020 Moderate episode of recurrent major depressive d isorder 11/21/2019 01/03/2020 Obesity, Class II, BMI 35-39.9 10/13/2019 1 Last Assessment & Plan: Assessment: BMI 38.74 documented as of this encounter (statuses as of 08/06/2022) [facility] of Past illness Narrative* Problem Noted Date Diagnosed Date Resolved Date Intractable nausea and vomiting 06/20/2022 06/23/2022 Acute abdominal pain 12/21/2020 023 Obesity 09/03/2020 11/29/2020 Abdominal pain 02/01/2020 04/08/2020 Moderate episode of recurren t major depressive disorder 11/21/2019 01/03/2020 Obesity, Class II, BMI 35-39.9 10/13/2019 11/29/2020 Last Assessment & Plan: Assessment: BMI 38.74 documented as of this encounter (statuses as of 09/19/2022) [facility] of Past illness Narrative* Problem Noted Date Diagnosed Date Resolved Date Intractable nausea and vomiting 06/20/2022 06/23/2022 Acute abdominal pain 12/21/2020 023 Obesity 09/03/2020 11/29/2020 Abdominal pain 02/01/2020 04/08/2020 Moderate episode of recurren t major depressive disorder 11/21/2019 01/03/2020 Obesity, Class II, BMI 35-39.9 10/13/2019 11/29/2020 Last Assessment & Plan: Assessment: BMI 38.74 documented as of this encounter (statuses as of 09/22/2022) [facility] of Past illness Narrative* Problem Noted Date Diagnosed Date Resolved Date Intractable nausea and vomiting 06/20/2022 06/23/2022 Acute abdominal pain 12/21/2020 023 Obesity 09/03/2020 11/29/2020 Abdominal pain 02/01/2020 04/08/2020 Moderate episode of recurren t major depressive disorder 11/21/2019 01/03/2020 Obesity, Class II, BMI 35-39.9 10/13/2019 11/29/2020 Last Assessment & Plan: Assessment: BMI 38.74 documented as of this encounter (statuses as of 09/28/2022) [facility] of Past illness Narrative* Problem Noted Date Diagnosed Date Resolved Date Intractable nausea and vomiting 06/20/2022 06/23/2022 Acute abdominal pain 12/21/2020 023 Obesity 09/03/2020 11/29/2020 Abdominal pain 02/01/2020 04/08/2020 Moderate episode of recurren t major depressive disorder 11/21/2019 01/03/2020 Obesity, Class II, BMI 35-39.9 10/13/2019 11/29/2020 Last Assessment & Plan: Assessment: BMI 38.74 documented as of this encounter (statuses as of 10/06/2022) [facility] of Past illness Narrative* Problem Noted Date Diagnosed Date Resolved Date Intractable nausea and vomiting 06/20/2022 06/23/2022 Acute abdominal pain 12/21/2020 023 Obesity 09/03/2020 11/29/2020 Abdominal pain 02/01/2020 04/08/2020 Moderate episode of recurren t major depressive disorder 11/21/2019 01/03/2020 Obesity, Class II, BMI 35-39.9 10/13/2019 11/29/2020 Last Assessment & Plan: Assessment: BMI 38.74 documented as of this encounter (statuses as of 10/15/2022) [facility] of Past illness Narrative* Problem Noted Date Diagnosed Date Resolved Date Intractable nausea and vomiting 06/20/2022 06/23/2022 Acute abdominal pain 12/21/2020 023 Obesity 09/03/2020 11/29/2020 Abdominal pain 02/01/2020 04/08/2020 Moderate episode of recurren t major depressive disorder 11/21/2019 01/03/2020 Obesity, Class II, BMI 35-39.9 10/13/2019 11/29/2020 Last Assessment & Plan: Assessment: BMI 38.74 documented as of this encounter (statuses as of 10/21/2022) [facility] of Past illness Narrative* Problem Noted Date Diagnosed Date Resolved Date Intractable nausea and vomiting 06/20/2022 06/23/2022 Acute abdominal pain 12/21/2020 023 Obesity 09/03/2020 11/29/2020 Abdominal pain 02/01/2020 04/08/2020 Moderate episode of recurren t major depressive disorder 11/21/2019 01/03/2020 Obesity, Class II, BMI 35-39.9 10/13/2019 11/29/2020 Last Assessment & Plan: Assessment: BMI 38.74 documented as of this encounter (statuses as of 12/21/2022) [facility] History of Present illness Narrative* Ciara Bello PA-C - 06/18/2022 9:24 AM EDT Interval history since last visit: Autoimmune workup negative. Lyme IgG negative. B Vitamins, iron panel, folate, muscle enzymes WNL. Normal SPEP. Patient with 06/16/22 stating severe flank pain with bladder pressure and bleeding gums. She was advised to seek emergency care given her symptoms soundedsevere and potentially consistent with pyelonephritis. ED visit yielded no pyelonephritis, UTI, or kidney stone on affected side. Though, there was a stone present on the opposite side. It was felt symptoms were muscular in nature and she was discharged. Phone Call: Called patient for specialty telephone visit at 9:24 AM. No answer, received voicemail message indicating voice box belong to patient. Voicemail message left with the following information: Negative autoimmune work-up. All serologies negative. Advised that this provider had reviewed her ED visit note that indicated her symptoms were likely secondary to myofascial pain. Recommend patient establishwith endocrinology as discussed during office visit to ensure there is no endocrine cause for her symptoms. Patient may follow-up as needed. Patient advised she may send a message on [employer] if she has any additional questions. Ciara Bello PA-C [facility] Date: June 18, 2022 Time: 9:26 AM Answers submitted by the patient for this visit: Review of Systems Rheumatology (Submitted on 06/17/2022) Fever : No Recent Unintentional Weight Change: No Eye Pain: Yes Eye Redness: Yes Vision Disturbance: No Eye Dryness: Yes Nose Bleeds: No Sores in your Mouth: No Trouble Swallowing: No Dry Mouth: No Chest Pain: No Leg Swelling: No A Cough: No Shortness of Breath: No Pain with Breathing: No Heartburn: No Abdominal Pain: Yes Diarrhea: No Black Tar[place] Stools: No Blood in Urine: No Pain or Burning with Urination: Yes Joint Pain or Stiffness: Yes Muscle Weakness: No Muscle Aches: Yes Joint Swelling: Yes Morning Stiffness in Joints: Yes A Rash: Yes Do you have sun sensitive rashes?: No Skin Color Changes: No Hair Loss: No Nail Changes: No Headaches: Yes Numbness: No Memory Loss: No Swollen Glands: No documented in this encounterOhio[facility]05-[facility]23 NoteHNO ID: [id number] Author: RT Sarah(R) Service: Radiology Author Type: Divinity Professor Type: Progress Notes Filed: 06/16/2022 2:41 PM Note Text: Radiology Service Progress Note PATIENT NAME: Abbey Garcia DATE OF SERVICE: June 16, 2022 TIME: 2:41 PM PATIENT IDENTITY VERIFICATION COMPLETED USING TWO (2) IDENTIFIERS: Name and Date of confirmed by patient verbally and Name and Date of confirmed by identification band. FALL SCREENING: Has the patient had 2 falls in the last year or 1 fall with injury or currently using an Ambulatory Assistive Device (Walker, Cane, Wheelchair, Crutches, etc.)? Emergency Room Patient: Screened in ED PATIENT GENDER DATA: Female. status: : No status: NO. PATIENT RELEVANT IMPLANT DATA REVIEWED: Not Applicable RADIOLOGY DEPARTMENT: CT; Exam(s) Completed: Abdomen/Pelvis PERIPHERAL IV DATA: Not applicable SIGNED BY: Ioana Corbin, RT(R) June 16, 2022 2:41 [id number]22 History of Present illness Narrative* Ciara Bello PA-C - 06/12/2022 10:26 AM EDT Images from the original note were not included. Rheumatology Outpatient Clinic Date of Service: 06/12/2022 Patient: Abbey Garcia Medical Record: [id number] Primary Care Physician: Wally Foley MD Last [facility] visit: [facility] Referring Provider: HENNY Marcus [address] [facility] [address] [place] [address] Consultation requested by Agustin Valentino for an opinion regarding Joint Pain. My final recommendations will be communicated back to the requesting physician by way of shared Medical record or letterto requesting physician via US mail. History of Present Illness Abbey Garcia is a 32 year old White female who presents on 06/12/2022 for an in-person visit for evaluation of Joint Pain. Abbey is RF negative - 9 (06/12/2022). HISTORY OF PRESENT ILLNESS Abbey Garcia is a 32 year old female with PMH hypothyroidism, PCOS, asthma, iron deficiency, primary osteoathritis, vitamin D deficiency, nephrolithiasis, RICHAR on CPAP, ARSALAN, panic disorder, depression, HTN, right hip acetabular labrum tear (05/2021) and is s/p laparoscopic sleeve gastrectomy (03/06/2022) and right hip arthroscopy with labral repair (07/10/2021). Patient presents today reporting intermittent symptoms since she was 9 or 10. Symptoms characterized by a general feeling of illness. She has fatigue, widespread polyarthralgias, subjective joint swelling of the knees and hips. There is no time of day where pain is worse. Movement does not necessarily hurt or help pain. Reports joint swelling occurs at the joints for which she has had previous surgeries. She will have subjective fevers with her symptoms. She also recently has experienced syncope and associated with her symptoms. Reports an echocardiogram was ordered by her primary care, but this has not yet been completed. She does report a history of potential adrenal insufficiency when she was a teenager and she also has hypothyroidism. 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 She reports symptoms are interrupted by improved almost symptom-free periods. These can last up to 6 months. Reports most recent flaring of symptoms began a couple months ago. She also reports she is often ill. Reports she was sick with pneumonia 3 x 1 year. Reports she has had shingles multiple times. She saw her orthopedic who merrill a significant amount of autoimmune lab work on her. Pleasesee outside studies. Orthopedic also ordered a Western blot on her for unknown reason. She did have2 IgM bands present. However, patient denies any known tick bite. She denies erythema migrans. As we ll as, symptoms have been present since she was age 9. She was treated with 2 weeks of doxycyclinewith no improvement in her symptoms. She does report that at age 14 she was told she has fibromyalgia and chronic fatigue syndrome. She will wake up suddenly from sleep breathing heavily. She feels unrefreshed when waking. She has brain fog. She has RICHAR on CPAP and does report, it has been awhile since settings have been adjusted. She reports symptom flares usually prompt extensive work-ups via various providers that always return negative. She denies personal history of psoriasis, IBD, or inflammatory eye disease. She endorses hair loss,tinnitus, headaches, abdominal discomfort, and intermittent mouth sores. Patient denies current fever, dysphagia, otalgia, sudden hearing loss, sudden visual loss, dactylitis, rash, photosensitivity,dry eyes, dry mouth, nasal/genital ulcers, nail pitting, vaginal symptoms or urinary symptoms. Patient-Entered Data PAIN EVALUATION 05/19/2022 1204 06/11/2022 1240 06/12/2022 0954 Pain Level: 6 7 6 Pain Location: Generalized Generalized -- Pt stated that all joints are hurting Description: Aching;Radiating;Stiffness Aching;Radiating;Sharp;Stiffness Aching Duration Amount of Time: 6 6 -- Duration Units: Days Days -- Frequency: Intermittent Intermittent -- Intervention/Comfort measure: Medication;Aromatherapy to promote a healing environment;Heat;Massage;Positioning;Support surface Medication;Aromatherapy to promote a healing environment;Heat;Massage;Positioning;Support surface -- Comments: Pain is worse where I have injuries/ old injuries/ surgical spots Pain is worse where I have injuries/ old injuries/ surgical spots -- PROMIS Assessments PROMIS Assessments 03/24/2022 05/19/2022 06/11/2022 Physical Health Percentile 15 % - - Mental Health Percentile 13 % - - Pain Score 3 - - Pain Interference Percentile - 5 % 4 % Fatigue Percentile - 8 % 3 % Physical Function Percentile - 10 % 12 % RAPID 3 Paula Activities of Daily Living 06/11/2022 12:40 PM 05/19/2022 12:08 PM Dress self? Without ANY difficulty Without ANY difficulty Get in and out of bed? With SOME difficulty With SOME difficulty Walk outdoors? Without ANY difficulty Without ANY difficulty Wash and dry body? With SOME difficulty With SOME difficulty Get in and out of car? With MUCH difficulty With MUCH difficulty RAPID 3 Disease Activity Weighed Score Levels: 0 - 1: Near Remission 1.3 - 2.0: Low Severity 2.3 - 4.0: Moderate Severity 4.3 - 10.0: High Severity RAPID-3 Weighed Score 05/19/2022 06/11/2022 RAPID 3 Weighed Score 5.94 (High Severity (HS)) 5.94 (High Severity (HS)) Review of Systems Review of Systems CONSTITUTION: Negative for: Fever and Recent weight change HEENT: Positive for: Dry mouth Negative for: Nosebleeds, Mouth sores and Trouble swallowing RESPIRATORY: Positive for: Shortness of breath Negative for: Cough and Pain with breathing GASTROINTESTINAL: Positive for: Heartburn Negative for: Melena, Diarrhea and Abdominal pain MUSCULOSKELETAL: Positive for: Arthralgias, Myalgias, Muscle weakness, Joint swelling and Morning Joint Stiffness NEUROLOGICAL: Positive for: Headaches and Numbness Negative for: Memory loss SKIN: Positive for: Nail changes Negative for: Rash, Skin changes and Hair loss EYES: Positive for: Eye pain and Eye dryness Negative for: Eye redness and visual disturbance CARDIOVASCULAR: Negative for: Leg swelling GENITOURINARY: Negative for: Dysuria and Hematuria HEMATOLOGIC/LYMPHATIC: Negative for: Swollen glands All other reviewed and negative other than HPI. Past Medical History PAST MEDICAL HISTORY Diagnosis Date Anemia Takes Pro FE daily. Arthritis Asthma Class 1 obesity without serious comorbidity with body mass index (BMI) of 33.0 to 33.9 in adult 09/25/2019 Gastric ulcer 2014 GERD (gastroesophageal reflux disease) History of IBS Hypertension Hypothyroid RICHAR on CPAP wears mask every night PCOS (polycystic ovarian syndrome) PONV (postoperative nausea and vomiting) 01/29/2022 Ventral hernia without obstruction or gangrene Past Surgical History PAST SURGICAL HISTORY Procedure Laterality Date APPENDECTOMY 08/2019 CHOLECYSTECTOMY COLONOSCOPY GEN ANES EGD F TOTAL ABDOMINAL HYSTERECTOMY PAST SURGICAL HISTORY OF Bilateral arthroscopic knee surgery- was catcher in college PAST SURGICAL HISTORY OF 08/2020 gastric sleeve PICC LINE INSERT/CONSULT 12/24/2020 VAGINAL DELIVERY AFTER DELIVERY Three C-sections Family History FAMILY HISTORY Problem Relation Age of Onset Diabetes Mother Hypertension Mother Obesity Mother Hypertension Father Hypertension Brother Obesity Brother Hypertension Brother Obesity Brother Social History Social History Tobacco Use Smoking status: Never Smokeless tobacco: Never Substance Use Topics Alcohol use: Not Currently Drug use: Never Comment: denies tx for drug/alcohol abuse in the past. Current Medications Current Outpatient Medications on File Prior to Visit Medication Sig hydrOXYzine HCl (ATARAX) 25 mg tablet TAKE 1 TABLET BY MOUTH TWICE A DAY NEEDED FOR ANXIETY/INSOMNIA escitalopram oxalate (LEXAPRO) 10 mg tablet TAKE 1 TABLET BY MOUTH EVERY DAY omeprazole (PRILOSEC) 40 mg capsule Take 1 capsule by mouth twice daily. (Patient taking differently: Take 40 mg by mouth as needed.) polyethylene glycol 3350 (MIRALAX) 17 gram/dose powder Take 17 g by mouth once daily as needed for constipation. Dissolve dose in 4 - 8 ounces of liquid and take as directed. topiramate (TOPAMAX) 100 mg tablet Take 100 mg by mouth twice daily. multivitamin tablet Take 1 tablet by mouth. Bariatric chewable 2 a day mirtazapine (REMERON) 15 mg tablet Take 1 tablet by mouth daily at bedtime. escitalopram oxalate (LEXAPRO) 5 mg tablet TAKE 1 TABLET BY MOUTH ONCE DAILY. TAKE WITH 10 MG TABLET. fluticasone propion/salmeterol (ADVAIR HFA INHALATION) Inhale as instructed. ALBUTEROL INHALATION Inhale as instructed. levothyroxine (SYNTHROID) 100 mcg tablet Take 1 tablet by mouth once daily. (Patient taking differently: Take 125 mcg by mouth once daily.) liothyronine (CYTOMEL) 5 mcg tablet Take 5 mcg by mouth once daily. methocarbamol (ROBAXIN) 500 mg tablet Take 1 tablet by mouth four times daily as needed. (Patient not taking: Reported on 06/12/2022) prochlorperazine (COMPAZINE) 5 mg tablet Take 2 tablets by mouth every 6 hours as needed. (Patient not taking: Reported on 06/12/2022) famotidine (PEPCID) 40 mg tablet Take 1 tablet by mouth once daily. (Patient not taking: Reported on 06/12/2022) magnesium gluconate (MAGONATE) 27 mg (500 mg) tab Take 500 mg by mouth once daily. (Patient not taking: Reported on 06/12/2022) No current facility-administered medications on file prior to visit. Labs CBC Latest Ref Rng & Units 03/18/2021 01/28/2022 01/30/2022 06/12/2022 WBC 3.70 - 11.00 k/uL 3.60(L) 4.05 5.40 4.56 HEMOGLOBIN 11.5 - 15.5 g/dL 11.1(L) 14.6 11.3(L) 13.4 HEMOGLOBIN (POCT) 11.5 - 15.5 g/dL - - - - HEMATOCRIT 36.0 - 46.0 % 36.2 42.9 33.3(L) 40.5 HEMATOCRIT (POCT) 36 - 46 % - - - - PLATELETS 150 - 400 k/uL 244 247 189 292 ABS NEUT (ANC) 1.45 - 7.50 k/uL 1.63 - - 2.46 ABS LYMPH 1.00 - 4.00 k/uL 1.56 - - 1.73 CMP Latest Ref Rng & Units 03/18/2021 01/28/2022 01/30/2022 06/12/2022 SODIUM 136 - 144 mmol/L 139 137 140 139 SODIUM (POCT) 132 - 148 mmol/L - - - - POTASSIUM 3.7 - 5.1 mmol/L 4.2 4.3 3.7 4.0 POTASSIUM (POCT) 3.5 - 5.0 mmol/L - - - - CHLORIDE 97 - 105 mmol/L 105 105 110(H) 106(H) CO2 22 - 30 mmol/L 24 22 20(L) 23 GLUCOSE 74 - 99 mg/dL 61(L) 77 105(H) 79 GLUCOSE (POCT) 60 - 105 mg/dL - - - - BUN 7 - 21 mg/dL 10 9 10 9 CREATININE 0.58 - 0.96 mg/dL 0.82 0.68 0.78 0.76 CALCIUM, TOTAL 8.5 - 10.2 mg/dL 9.0 9.3 8.6 9.3 AST 13 - 35 U/L 26 - - 33 ALT 7 - 38 U/L 14 - - 20 ALKALINE PHOSPHATASE 34 - 123 U/L 61 - - 64 C3, C4 Latest Ref Rng & Units 06/12/2022 C3 86 - 166 mg/dL 140 C4 13 - 46 mg/dL 25 CK Latest Ref Rng & Units 06/12/2022 CK 42 - 196 U/L 44 RF and CCP Latest Ref Rng & Units 06/12/2022 RHEUMATOID FACTOR <16 IU/mL <10 Antibodies Latest Ref Rng & Units 04/05/2020 04/05/2020 PT SEC 9.7 - 13.0 sec 10.9 11.0 PT INR 0.9 - 1.3 1.0 1.0 PTT 23.0 - 32.4 sec - 27.2 Urinalysis Latest Ref Rng & Units 10/15/2019 01/31/2020 04/04/2020 04/06/2020 PROTEIN, URINE Negative Negative 1+(A) Negative Negative RBC, URINE 0 - 3 /HPF 0-5(A) 0-3 0-3 11-25(A) Imaging Last XR Hand/Finger - Impression Only No resulted procedures found. Last MRI Hand - Impression Only No resulted procedures found. Last XR Chest - Impression Only XR CHEST 2V FRONTAL/LAT Exam End: 12/31/2020 2:19 PM (Final result) Impression: IMPRESSION: No acute radiographic abnormality. ... Last XR Cervical Spine - Impression Only No resulted procedures found. OUTSIDE STUDIES / DATA Ordered by Dr. Stephan Tavares HLA B27 negative 05/28/2022 Western blot 05/27/2022 IgG P18 absent IgG P23 absent IgG P28 absent IgG P30 absent IgG P39 absent IgG P41 present IgG P45 absent IgG P58 absent IgG P66 absent IgG P93 absent IgM P23 present ([facility]sp[facility]) IgM P39 absent IgM P41 present 05/25/2022 MISAEL negative dsDNA negative 2 Antichromatin nega <0.2 RF negative <10 FLAGSTONE LAYER 0.3 SSA <0.2 SSB <0.2 Du <0.2 05/22/22 Esr 4 Health Maintenance HEPATITIS B(1 of 3 - 3-dose series) Never done PNEUMOCOCCAL(1 - PCV) Never done SPIROMETRY Never done ANNUAL PCP TEAM CHRONIC DISEASE VISIT Never done HEPATITIS C SCREENING Never done HIV SCREENING Never done BP CONTROLLED (<130/80) Never done PAP TESTING Never done HPV TESTING Never done COVID-19 VACCINE(3 - Booster for Woo series) due on 04/15/2021 DTAP,TDAP,TD(2 - Td or Tdap) due on 09/21/2026 INFLUENZA Completed Physical Exam GENERAL APPEARANCE: Well groomed. Alert and oriented x 3. In no distress. VITAL SIGNS: BP 123/78 Pulse 68 Temp (Src) 97.5 (Temporal) Ht 5' 6 (1.68m) Wt 186 lb (84.4kg) LMP 08/19/2020 BMI 30.04 kg/(m^2). Physical Exam Constitutional: General: She is not in acute distress. Appearance: Normal appearance. She is not ill-appearing, toxic-appearing or diaphoretic. HENT: Head: Normocephalic and atraumatic. Right Ear: External ear normal. Left Ear: External ear normal. Nose: Nose normal. Mouth/Throat: Mouth: Mucous membranes are moist. Pharynx: Oropharynx is clear. No oropharyngeal exudate or posterior oropharyngeal erythema. Eyes: General: No scleral icterus. Extraocular Movements: Extraocular movements intact. Conjunctiva/sclera: Conjunctivae normal. Pupils: Pupils are equal, round, and reactive to light. Cardiovascular: Rate and Rhythm: Normal rate and regular rhythm. Pulses: Normal pulses. Heart sounds: Normal heart sounds. Pulmonary: Effort: Pulmonary effort is normal. No respiratory distress. Breath sounds: Normal breath sounds. No stridor. No wheezing, rhonchi or rales. Musculoskeletal: Comments: All joints without effusion unless stated. Muscle Strength 5/5 and symmetric unless otherwise specified. Shoulders FROM Elbows FROM Wrists FROM Hands FROM Hand strength is 5/5 and symmetric on resisted finger separation and hand setter molding and coremaking machines Knees FROM Ankles FROM No MTP squeeze tenderness Skin: General: Skin is warm and dry. Coloration: Skin is not jaundiced. Findings: No bruising, erythema, lesion or rash. Neurological: General: No focal deficit present. Mental Status: She is alert and oriented to person, place, and time. Motor: No weakness. Gait: Gait normal. Psychiatric: Mood and Affect: Mood normal. Behavior: Behavior normal. Thought Content: Thought content normal. Judgment: Judgment normal. Impression Diagnoses: (M25.50) Polyarthralgia (primary encounter diagnosis) (R53.81, R53.83) Malaise and fatigue (R50.9) Subjective fever (Z98.84) S/P laparoscopic sleeve gastrectomy (Z87.898) History of syncope (Z86.39) History of adrenal insufficiency (E03.9) Hypothyroidism, unspecified type Abbey Garcia is a 32 year old female with PMH hypothyroidism, PCOS, asthma, iron deficiency, primary osteoathritis, vitamin D deficiency, nephrolithiasis, RICHAR on CPAP, ARSALAN, panic disorder, depression, HTN, right hip acetabular labrum tear (05/2021) and is s/p laparoscopic sleeve gastrectomy (03/06/2022) and right hip arthroscopy with labral repair (07/10/2021). Patient presents for rheumatologic evaluation of prodromal symptoms that occur intermittently sinceage 9 or 10. Currently unclear cause of patient's symptoms. It is quite possible that she does have fibromyalgia and chronic fatigue syndrome. However, the prolonged periods of being symptom-free isunlike those diagnoses. Patient has a outside positive Western blot ordered by an orthopedic provider which showed 2 IgM bands. However, this is likely a false positive as patient does not have any known tick bite, erythema migrans, and symptoms have persisted for many many years. She also endorsesfrequent illness. We will complete rheumatologic work-up with consideration towards a potential immu nodeficiency. Her recent syncope prompts the need for potential cardiac work-up. PCP has ordered anechocardiogram, this is pending. Patient to obtain lab work today. Patient also has a history of reported adrenal insufficiency and hypothyroidism. She has not seen car wash manager. Would like to rule out endocrine causes for her symptoms. Consult to endocrinology placed. She also has a history of laparoscopic sleeve. We will rule out vitamin deficiencies as contributors to her symptoms as well. Follow-up pending results. Plan Orders this visit: Office Visit on 06/12/22 CBC + DIFF COMP METABOLIC PANEL MISAEL BY IFA WITH REFLEX C3 COMPLEMENT BLD C4 COMPLEMENT BLD RHEUMATOID FACTOR BL CCP ANTIBODY IGG PROTEIN ELECTROPHORESIS SERUM W/INTERP MONOCLONAL PROTEIN, SERUM (BLOOD) LYME AB LATE >30 DAYS SYMPTOMS VITAMIN B6/PYRIDOXIN FERRITIN BLD IRON + TIBC VITAMIN B12 BLOOD FOLATE SERUM VITAMIN B3/NIACIN, PLASMA VITAMIN B1 (THIAMINE), WHOLE BLOOD MAGNESIUM BLD CK CREATINE KINASE CONSULT TO ENDOCRINOLOGY (M25.50) Polyarthralgia (primary encounter diagnosis) (R53.81, R53.83) Malaise and fatigue (R50.9) Subjective fever (Z98.84) S/P laparoscopic sleeve gastrectomy (Z87.898) History of syncope Lab work (Z86.39) History of adrenal insufficiency (E03.9) Hypothyroidism, unspecified type Consult to endocrinology Return in about 1 week (around 06/19/2022). I spent a total of 60 minutes on the date of the service which included preparing to see the patient, [id number] patient care, completing clinical documentation, obtaining and/or reviewing separately obtained history, performing a medically appropriate examination, counseling and educating the pat ient/family/caregiver, and ordering medications, tests, or procedures. Ciara Bello PA-C Orthopaedic [facility] Rheumat[facility] Date: June 12, 2022 Time: 10:26 AM documented in this encounterOhio[facility] Discharge instructions Patient Education 06/10/2022 17:05:57 Syncope, Adult Syncope, Adult Syncope refers to a condition in which a person temporarily loses consciousness. Syncope may also be called fainting or passing out. It is caused by a sudden decrease in blood flow to the brain. Thiscan happen for a variety of reasons. Most causes of syncope are not dangerous. It can be triggered by things such as needle sticks, seeing blood, pain, or intense emotion. However, syncope can also be a sign of a serious medical problem, such as a heart abnormality. Other causes can include dehydration, migraines, or taking medicines that lower blood pressure. Your health care provider may do tests to find the reason why you are having syncope. If you faint, get medical help right away. Call your local emergency services (911 in the [place] Follow these instructions at home: Pay attention to any changes in your symptoms. Take these actions to stay safe and to help relieve your symptoms: Knowing when you may be about to faint Signs that you may be about to faint include: ?Feeling dizzy, weak, light-headed, or like the room is spinning. ?Feeling nauseous. ?Seeing spots or seeing all white or all black in your field of vision. ?Having cold, clammy skin or feeling warm and sweaty. ?Hearing ringing in the ears (tinnitus). If you start to feel like you might faint, sit or lie down right away. If sitting, put your head down between your legs. If lying down, raise (elevate) your feet above the level of your heart. ?Breathe deeply and steadily. Wait until all the symptoms have passed. ?Have someone stay with you until you feel stable. Medicines Take [id number] and prescription medicines only as told by your health care provider. If you are taking blood pressure or heart medicine, get up slowly and take several minutes to sit and then stand. This can reduce dizziness and decrease the risk of syncope. Lifestyle Do not drive, use machinery, or play sports until your health care provider says it is okay. Do not drink alcohol. Do not use any products that contain nicotine or tobacco. These products include cigarettes, chewing tobacco, and vaping devices, such as e-cigarettes. If you need help quitting, ask your health careprovider. Avoid hot tubs and saunas. General instructions Talk with your health care provider about your symptoms. You may need to have testing to understandthe cause of your syncope. Drink enough fluid to keep your urine pale yellow. Avoid prolonged standing. If you must stand for a long time, do movements such as: ?Moving your legs. ?Crossing your legs. ?Flexing and stretching your leg muscles. ?Squatting. Keep all follow-up visits. This is important. Contact a health care provider if: You have episodes of near fainting. Get help right away if: You faint. You hit your head or are injured after fainting. You have any of these symptoms that may indicate trouble with your heart: ?Fast or irregular heartbeats (palpitations). ?Unusual pain in your chest, abdomen, or back. ?Shortness of breath. You have a seizure. You have a severe headache. You are confused. You have vision problems. You have severe weakness or trouble walking. You are bleeding from your mouth or rectum, or you have black or tarry stool. These symptoms may represent a serious problem that is an emergency. Do not wait to see if your symptoms will go away. Get medical help right away. Call your local emergency services (911 in the [place] Do not drive yourself to the hospital. Summary Syncope refers to a condition in which a person temporarily loses consciousness. Syncope may also be called fainting or passing out. It is caused by a sudden decrease in blood flow to the brain. Signs that you may be about to faint include dizziness, feeling light-headed, feeling nauseous, sudden vision changes, or cold, clammy skin. Even though most causes of syncope are not dangerous, syncope can be a sign of a serious medical problem. Get help right away if you faint. If you start to feel like you might faint, sit or lie down right away. If sitting, put your head down between your legs. If lying down, raise (elevate) your feet above the level of your heart. This information is not intended to replace advice given to you by your health care provider. Make sure you discuss any questions you have with your health care provider. Document Revised: 06/12/2021 Document Reviewed: 06/12/2021 [employer] Patient Education 2022 [employer] 06/10/2022 17:05:57 Nonspecific Chest Pain, Adult Nonspecific Chest Pain, Adult Chest pain is an uncomfortable, tight, or painful feeling in the chest. The pain can feel like a crushing, aching, or squeezing pressure. A person can feel a burning or tingling sensation. Chest paincan also be felt in your back, neck, jaw, shoulder, or arm. This pain can be worse when you move, sneeze, or take a deep breath. Chest pain can be caused by a condition that is life-threatening. This must be treated right away. It can also be caused by something that is not life- threatening. If you have chest pain, it can be hard to know the difference, so it is important to get help right away to make sure that you do not have a serious condition. Some life-threatening causes of chest pain include: Heart attack. A tear in the body's main blood vessel (aortic dissection). Inflammation around your heart (pericarditis). A problem in the lungs, such as a blood clot (pulmonary embolism) or a collapsed lung (pneumothorax). Some non life-threatening causes of chest pain include: Heartburn. Anxiety or stress. Damage to the bones, muscles, and cartilage that make up your chest wall. Pneumonia or bronchitis. Shingles infection (varicella-zoster virus). Your chest pain may come and go. It may also be constant. Your health care provider will do tests and other studies to find the cause of your pain. Treatment will depend on the cause of your chest pain. Follow these instructions at home: Medicines Take [id number] and prescription medicines only as told by your health care provider. If you were prescribed an antibiotic medicine, take it as told by your health care provider. Do notstop taking the antibiotic even if you start to feel better. Activity Avoid any activities that cause chest pain. Do not lift anything that is heavier than 10 lb (4.5 kg), or the limit that you are told, until your health care provider says that it is safe. Rest as directed by your health care provider. Return to your normal activities only as told by your health care provider. Ask your health care provider what activities are safe for you. Lifestyle Do not use any products that contain nicotine or tobacco, such as cigarettes, e- cigarettes, and chewing tobacco. If you need help quitting, ask your health care provider. Do not drink alcohol. Make healthy lifestyle changes as recommended. These may include: ?Getting regular exercise. Ask your health care provider to suggest some exercises that are safe for you. ?Eating a heart-healthy diet. This includes plenty of fresh fruits and vegetables, whole grains, low-fat (lean) protein, and low-fat dairy products. A dietitian can help you find healthy eating options. ?Maintaining a healthy weight. ?Managing any other health conditions you may have, such as high blood pressure (hypertension) or diabetes. ?Reducing stress, such as with yoga or relaxation techniques. General instructions Pay attention to any changes in your symptoms. It is up to you to get the results of any tests that were done. Ask your health care provider, or the department that is doing the tests, when your results will be ready. Keep all follow-up visits as told by your health care provider. This is important. You may be asked to go for further testing if your chest pain does not go away. Contact a health care provider if: Your chest pain does not go away. You feel depressed. You have a fever. You notice changes in your symptoms or develop new symptoms. Get help right away if: Your chest pain gets worse. You have a cough that gets worse, or you cough up blood. You have severe pain in your abdomen. You faint. You have sudden, unexplained chest discomfort. You have sudden, unexplained discomfort in your arms, back, neck, or jaw. You have shortness of breath at any time. You suddenly start to sweat, or your skin gets clammy. You feel nausea or you vomit. You suddenly feel lightheaded or dizzy. You have severe weakness, or unexplained weakness or fatigue. Your heart begins to beat quickly, or it feels like it is skipping beats. These symptoms may represent a serious problem that is an emergency. Do not wait to see if the symptoms will go away. Get medical help right away. Call your local emergency services (911 in the [place] Do not drive yourself to the hospital. Summary Chest pain can be caused by a condition that is serious and requires urgent treatment. It may also be caused by something that is not life-threatening. Your health care provider may do lab tests and other studies to find the cause of your pain. Follow your health care provider's instructions on taking medicines, making lifestyle changes, and getting emergency treatment if symptoms become worse. Keep all follow-up visits as told by your health care provider. This includes visits for any further testing if your chest pain does not go away. This information is not intended to replace advice given to you by your health care provider. Make sure you discuss any questions you have with your health care provider. Document Revised: 04/17/2021 Document Reviewed: 04/17/2021 [employer] Patient Education 2022 [facility]. Follow Up Care 06/10/2022 12:31:10 With:Raulito Jack Address: [facility] [place] [address] [phone] Business (1) When:06/13/2022 17:03:30 Comments:Schedule event loop recorder as well as echocardiogram with central scheduling and then follow-up with casting tester Dr. Jack With:Jaquan Morrow Address: [address] [place] [phone] Business (1) When:06/13/2022 17:03:46 Comments:Call the office of your primary care doctor to arrange for follow-up within the above-stated timeframe. Follow-up with your primary care doctor about this ED visit. You should review your labs, imaging, and diagnoses from this ED visit with your primary care physician. If you were prescribed medications you should discuss possible side-effects and drug interactions with your pharmacist. Call 911 or go to the nearest Emergency Department if you develop any new or worsening symptoms. [facility]02-07-2023 NoteHNO ID: [id number] Author: Rylee Lopez APRN.OBGYN HOSPITALIST PHYSICIAN Service: ? Author Type: Nurse Practitioner Type: Progress Notes Filed: 03/24/2022 3:37 PM Note Text: [facility] * Eli Carter RN - 03/06/2022 12:59 PM EST PATIENT EDUCATION TOPIC: PROCEDURE / SURGERY: Pre Procedure Teaching: Surgical Safety Principles PATIENT NAME: Abbey Garcia PATIENT LOCATION: Room/bed info not found READINESS TO LEARN COGNITIVE ABILITY: Alert and oriented MOTIVATION TO LEARN: Eager FAMILY SUPPORT: None - Unavailable/disinterested INSTRUCTION PROVIDED TO: Patient PATIENT LEARNS BEST BY: Individual Instruction FACTORS AFFECTING LEARNING: None PHYSICAL LIMITATIONS AFFECTING LEARNING: None LEARNING RESPONSE DIAGNOSIS: ADULT: epigastric pain, n/v PATIENT/FAMILY RESPONSE: Verbalizes understanding of: PRE-PROCEDURE INSTRUCTIONS-Correct action to take to follow pre-procedure instructions METHOD OF INSTRUCTION: Individual instruction FOLLOW-UP PLAN: Complete - No need for follow-up INSTRUCTIONAL AIDS USED: NA SUPPLEMENTAL MATERIAL PROVIDED TO PATIENT: None REFERRAL (RECOMMENDATION): None documented in this encounterOhio[facility]23 Miscellaneous Notes* Telephone Encounter - Victor M Dennis - 03/05/2022 11:54 AM EST Spoke with the patient confirmed 1:45 arrival time for 2:45 appointment at [facility]. Victor M Dennis * Telephone Encounter - Li Kimball RN - 03/05/2022 10:31 AM EST I called patient and left a message with EGD appointment instructions and location. Call back number provided. Li Kimball RN documented in this encounterOhiohealth O[facility]01-19-2023 [facility]01-19-2023 Instructions* Patient Instructions* Breanna Stern APRN.CNP - 03/05/2022 10:18 AM EST I have asked scheduling to add you on for an appointment in 2 months for your regular follow up, we'll check your labs at that time. (I've ordered them, no need to fast) We may need to see you sooner based on results of your EGD documented in this encounterOhiohealth [facility]01-19-2023 History of Present illness Narrative* Breanna Stern APRN.CNP - 03/05/2022 9:31 AM EST BMI SURGERY Post Op Clinic Note - virtual visit Virtual Visit (Audio/Visual) I have discussed the nature of this visit with the patient which will occur via [facility] (Phone, Virtual Visit) and she agrees to proceed with this interaction . March 05, 2022 INTERVAL HISTORY: Abbey Garcia is here for 1 month post op visit. Since last visit she advanced her diet to soft, hasbeen unable to keep soft foods down - yogurts/cottage cheese etc. She has remained on a liquid diet. She feels as though food is getting stuck mid chest then she has to throw it up. No issues with liquids, only with pureed/soft foods. Currently has a cold - nasal congestion Index Surgery Date of Surgery: 09/03/2020 Surgeon: Deacon Kat MD Surgical Procedure: LAPAROSCOPIC LONGITUDINAL GASTRECTOMY, GASTRIC RESTRICTIVE PROCEDURE Pre-surgical weight: 108.9 kg (240 lb) Override Index Surgery Information? Yes Date of Surgery: 2021 Surgical Procedure: Revision Surgeon: Deacon Kat MD Pre-surgical weight: 209 lb Other Bariatric Surgeries Date of Surgery Surgeon Procedure 10/13/2019 Deacon Kat MD EGD WITH BIOPSY 04/16/2020 Deacon Peña MD LAPAROSCOPY WITH BIOPSY 03/20/2021 Deacon Kat MD LAPAROSCOPY DIAGNOSTIC 01/29/2022 Deacon Kat MD LAPAROSCOPIC ANTECOLIC ANTEGASTRIC GASTRECTOMY,PARTIAL,WITH TAN-EN-Y RECONSTRUCTION Visit: 17 months Today's Visit: Wt 89.8 kg (198 lb) BMI 31.96 kg/m2 BMI 31.96 kg/(m^2) Last Visit: Wt: 93.4 kg (206 lb) BMI: 33.25 kg/(m^2) Total weight loss: 19.1 kg (42 lb) [place] weight: 70.3 kg (154 lb 14.5 oz) Excess weight: 38.6 kg (85 lb 1.5 oz) % of excess body weight lost: 19.1 kg (42 lb) (49.36% of excess weight loss) COMPLICATIONS SINCE LAST VISIT?: Nausea / vomiting and Other: dysphagia DIET INTAKE: Liquid, unable to keep soft/solids down DAILY SUPPLEMENTS: None currently due to nausea EXERCISE: Up and moving, working, no exercise currently due to nausea Current Outpatient Medications Medication Sig omeprazole (PRILOSEC) 40 mg capsule Take 1 capsule by mouth once daily. methocarbamol (ROBAXIN) 500 mg tablet Take 1 tablet by mouth four times daily as needed. prochlorperazine (COMPAZINE) 5 mg tablet Take 2 tablets by mouth every 6 hours as needed. polyethylene glycol 3350 (MIRALAX) 17 gram/dose powder Take 17 g by mouth once daily as needed for constipation. Dissolve dose in 4 - 8 ounces of liquid and take as directed. topiramate (TOPAMAX) 100 mg tablet Take 100 mg by mouth twice daily. multivitamin tablet Take 1 tablet by mouth. Bariatric chewable 2 a day mirtazapine (REMERON) 15 mg tablet Take 1 tablet by mouth daily at bedtime. escitalopram oxalate (LEXAPRO) 10 mg tablet TAKE 1 TABLET BY MOUTH EVERY DAY escitalopram oxalate (LEXAPRO) 5 mg tablet TAKE 1 TABLET BY MOUTH ONCE DAILY. TAKE WITH 10 MG TABLET. hydrOXYzine HCl (ATARAX) 25 mg tablet TAKE 1 TABLET BY MOUTH TWICE A DAY NEEDED FOR ANXIETY/INSOMNIA fluticasone propion/salmeterol (ADVAIR HFA INHALATION) Inhale as instructed. ALBUTEROL INHALATION Inhale as instructed. levothyroxine (SYNTHROID) 100 mcg tablet Take 1 tablet by mouth once daily. famotidine (PEPCID) 40 mg tablet Take 1 tablet by mouth once daily. magnesium gluconate (MAGONATE) 27 mg (500 mg) tab Take 500 mg by mouth once daily. liothyronine (CYTOMEL) 5 mcg tablet Take 5 mcg by mouth once daily. No current facility-administered medications for this visit. REVIEW OF SYSTEMS: See HPI Denies dumping syndrome, reactive hypoglycemia, gustatory rhinorrhea, Denies abdominal pain, constipation, diarrhea, melena, hematochezia, Denies paresthesias, gait abnormality, fatigue, weakness, lower extremity edema, and Denies taking NSAIDs PHYSICAL EXAM: Wt 89.8 kg (198 lb) LMP 08/19/2020 BMI 31.96 kg/m GENERAL: A&O, pleasant, NAD RESPIRATORY: non labored, + nasal congestion ABDOMEN: no apparent distention NEURO: no obvious deficits Assessment / PLAN: 31 year old female with Class I obesity who presented today for 1 months. post op s/p revision LAPAROSCOPIC ANTECOLIC ANTEGASTRIC GASTRECTOMY,PARTIAL,WITH TAN-EN-Y RECONSTRUCTION - significant dysphagia with nausea/vomiting - Keeping fluids down, though suspect she is dehydrated - EGD Therapeutic in case of stricture - plan for IV hydration - Pt instructed to start B complex vitamin while she is unable to tolerate her bariatric multivitamins DISPOSITION: Return based on EGD results, if normal, we'll see at 3 months post op LABS: added prior to 3 mo follow up: See Epic Orders Breanna Stern APRN.BETH documented in this encounterOhiohealth [facility]12-30-2022 History of Present illness Narrative* Kuldip Yousif MD - 02/13/2022 10:25 AM EST Images from the original note were not included. DEPARTMENT OF ORTHOPAEDICS Chief Complaint: Right hip pain Patient returns for follow up of right hip pain. Last seen 08-29-21. Patient reports that she has been working with PT. Reports that the last 3 weeksor so she has noticed an increase in hip and knee pain. She also recently started Softball activities. She has been taking tylenol for her pain. PHYSICAL EXAM: [facility] 08/19/2020 General: Appears stated age, well built, in no apparent distress. Psychiatric: Mood and affect appropriate. Alert and oriented x 3 without evidence of abnormal respiratory effort. Musculoskeletal Exam: Gait normal, Posture: erect and normal. Exam: Right Left Single Leg Trendelenburg Positive Positive Hip flexion 100 100 IR 30 0 ER 70 70 Anterior impingement negative negative Dynamic labral stress negative negative JEREMIAS negative positive Posterior Impingement negative negative DANNA negative negative Strength Supine HF 5/5 5/5 Upright HF 5/5 5/5 Adduction 5/5 5/5 Abduction 5-/5 5-/5 Tenderness with Palpation: Right Left Greater Troch Negative Negative Gluteus Medius Negative Negative Piriformis Negative Negative TTP right knee medial and lateral patellar facet. Bilateral PF crepitance IMPRESSION: (S73.419D) Acetabular labrum tear, right, subsequent encounter (primary encounter diagnosis) PLAN: 1. Medication: None. 2. Test(s)/Imaging/Referral(s): None. 3. Intervention: Continue conservative treatment. Objectively, patients hip is doing well post op. She has been dealing with a right knee injury as well (images were uploaded in the system today). She saw a provider in the [place] area who recommended her have an osteotomy. 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 We discussed the option of seeing Dr. Gutierres for a second opinion as patient is eager to see someone through the [facility]. We will help her set up this appointment. From a hip standpoint, discussed her finding activities that work for her and to continue to build up her strength. We will leave follow up open ended but she will contact our office if there are any issues. Patient is on board with the plan and all questions were answered. 4. Follow-up: PRN - follow up with Dr. Gutierres for her knee. Scribe Attestation: By signing my name below, I, DONAVAN Douglas, attest that this documentation has been preparedunder the direction and in the presence of Kuldip Yousif M.D. Electronically Signed:DONAVAN Douglas, February 13, 2022 10:26 AM I agree with the Chief Complaint, ROS, and Past Histories independently gathered by the clinical underwriting support manager and the remaining scribed note accurately describes my personal service to the patient. Kuldip Yousif MD documented in this encounterOhiohealth O'[facility]12-22-2022 Miscellaneous Notes* Telephone Encounter - Li Kimball RN - 02/05/2022 4:[address] Kat updated on continued pain and states he will prescribe pain medication. Li Kimball RN * Telephone Encounter - Li Kimball RN - 02/05/2022 4:01 PM EST The states her left side abdominal pain continues. Patient states the pain is stabbing and is 7/10.Patient states Robaxin and Tylenol have minimal effect on pain. Patient states Prilosec is helping reflux. Patient reports that incisions look good with no redness or drainage. Bowel movements normaltoday but states she was constipated feeling yesterday. Patient states occasional vomiting that occurs without nausea. Li Kimball RN documented in this encounterOhiohealth O'[facility]12-21-2022 History of Present illness Narrative* Nahed Tamez, RD - 02/04/2022 9:24 AM EST [facility] Nutrition Therapy: Virtual Consult - Re-assessment This visit was performed virtually due to the COVID-19 epidemic as an effort to protect patients and minimize exposure. Consent from patient received to conduct visit virtually. This Team Access Model visit is a virtual encounter. It required patient-provider interaction for the medical decision making as documented below. Nutrition Diagnosis: Altered Gastrointestinal Tract Function, related to, S/P bariatric surgery, asevidenced by patient update and PSH with most recent surgery on 01/29/22. RECOMMENDED MALNUTRITION DIAGNOSIS: NO MALNUTRITION IDENTIFIED NUTRITION CARE PLAN: Nutrition Intervention 02/04/2022: 1.Please continue with Phase 2 full liquid diet for a total of two weeks post op. Phase 2 Full liquids consists of protein shakes limited to 1/4c per meal, 1c fluids between meals. Please continue totake small sips of liquids as you are doing throughout the day. Ok to continue to use the Gatorade Zero, water and various protein drinks both clear and regular as discussed. 2. After two weeks of the full liquid diet, you may then progress to diet phase 3, which is soft textured high protein foods. (Please refer to your Guide to bariatric surgery book for complete details of foods allowed during phase 3 with link below). 3. Please restart your daily bariatric fusion and calcium citrate when you start Phase 3 diet. (Bariatric Fusion One a Day multivitamin capsule PLUS 8283-5583 mg calcium citrate daily) 4. Protein goal: 75-93 grams protein/day. 5. Fluid goal: 64oz per day water. (no calories, no caffeine, no carbonation, no alcohol) 6. Call the BMI department at [phone] to schedule your one month post op nutrition visit for February. Link to book as discussed: [email or web address] Nutrition Monitoring & Evaluation: Adherence to above recommendations. Criteria: patient update Need for Follow up: One month post op PROGRESS: 6 days post op revision sleeve to RYGB Net weight loss 3 pounds (209 lbs initial) 1% TWL with pre-surgical weight of 209 lbs Diet recall indicates Phase 2 diet. Pt reports increased nausea 6 days post op and with some vomiting last night. Pt working hard to keep hydrated with intakes of both Gatorade Zero and water. Reports tolerating Gatorade Zero better than water at this time. Inadequate protein intake at this time with no intakes of protein drinks. States she will reintroduce such later this day aftr they are purchased from the store. Has not yet restarted Bariatric Fusion MVI or calcium supplement and still withsome post surgery restrictions with activity. Nutrition Intervention from 08/28/21: 1. Protein: Continue to strive for 75-93 g protein per day. Eat protein first at all meals. Lean meats, low fat/part skim dairy products, peanut butter, eggs, beans. 2. Eat 4 small meals per day or 3 meals and 1-2 small snacks for additional protein 3. Fluids: 64 oz per day, minimum. No carbonation, no caffeine, no calories, no alcohol. 4. Vitamin/minerals: Continue daily Bariatric Fusion One a Day multivitamin capsule PLUS 7069-3477 mg calcium citrate 5. Exercise: strive for daily activity - combine strength training and cardio for best workouts. Goal is 30 minutes 5-6x per week. 6. Practice these: Eat in this order protein first, vegetable and fruit second and whole grain carbohydrates last. * Separate eating and drinking by 30 minutes * Chew your food 20-30x per bite * Meals should last 30 minutes. Actions to implement interventions: Pt provided information: - Pt 6 days s/p bariatric surgery (01/29/22- revision sleeve to tan-en-y gastric bypass). - Reports increased nausea at this time and some vomiting last night. - Trying to stay on top of hydration by report. - Fluids consist of Gatorade Zero (small sips throughout the day), some water but has not been liking the water as much as the Gatorade at this time. - Has not been drinking the protein drinks but planning to try to reintroduce protein drinks this day after her goes to the store to purchase more. - Prior to revision was adherent with daily Bariatric Fusion vitamins and calcium citrate supplements. - Advised by medical staff to restart supplements approximately two weeks post op when likely to better tolerate such. - Activity restrictions still in place with being 6 day post op. 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 Resting Metabolic Rate: 1662 Malnutrition Screening Significant unintentional weight loss? No Eating less than 75% of usual intake for more than 2 weeks? No Potential Signs of Inflammation: no identifiable sources Nutritional status: Education Materials Provided: BMI Nutrition Guidelines READINESS TO LEARN Cognitive ability: Alert and oriented Motivation to learn: Interested Family support: Unable to assess - Family not present Instruction provided to: Patient Patient learns best by: Multiple Methods Factors affecting learning: None Physical limitations affecting learning: None Likelihood of Adherence: Moderate Referred/Supervised by: Jacquelyn/Marlin FRIAS Billing Type: Re-assess/15 min 1 unit SIGNATURE: Nahed Tamez RD PATIENT NAME: Abbey Garcia DATE: 02/04/2022 TIME: 9:24 AM PAGER: [phone] documented in this encounterOhiohealth O'[facility]12-20-2022 Instructions* Patient Instructions* Breanna Stern APRN.CNP - 02/03/2022 3:42 PM EST Start Omeprazole today Call the office if you are unable to maintain good hydration or if you symptoms do not improve - take tylenol and robaxin regularly for the next few days to help control pain Walking is encouraged and going up stairs is perfectly fine. In general, we recommend no lifting more than 10-15 lbs (weight of a milk jug) for the first 4 weeks after surgery. Listen to your body. If an activity hurts, you are doing too much, too early. Avoidthat activity for a few days before trying it again. If you listen to your body and let discomfort be your guide, you can safely advance your activity as tolerated. documented in this encounterOhiohealth O'[facility]12-20-2022 History of Present illness Narrative* Breanna Merlin, ROVING WEIGHT GAUGER.OBGYN HOSPITALIST PHYSICIAN - 02/03/2022 2:58 PM EST Assessment BMI Surgical PostOp Clinic Note February 03, 2022 INTERVAL HISTORY: Abbey Garcia is here for 5 day post op visit. Today c/o pain and nausea, persistent since surgery, but some worsening yesterday and today. Denies constipation She called in yesterday and was given muscle relaxers, she tried 2 so far, with minimal benefit, she is also taking Tylenol Pathology: n/a Index Surgery Date of Surgery: 09/03/2020 Surgeon: Deacon Kat MD Surgical Procedure: LAPAROSCOPIC LONGITUDINAL GASTRECTOMY, GASTRIC RESTRICTIVE PROCEDURE Pre-surgical weight: 108.9 kg (240 lb) Override Index Surgery Information? No Other Bariatric Surgeries Date of Surgery Surgeon Procedure 10/13/2019 Deacon Kat MD EGD WITH BIOPSY 04/16/2020 Deacon Peña MD LAPAROSCOPY WITH BIOPSY 03/20/2021 Deacon Kat MD LAPAROSCOPY DIAGNOSTIC 01/29/2022 Deacon Kat MD LAPAROSCOPIC GASTROJEJUNOSTOMY W/O VAGOTOMY Visit: 17 months Today's Visit: Wt 93.4 kg (206 lb) BMI 33.25 kg/m2 BMI 33.25 kg/(m^2) Last Visit: Wt: 94.8 kg (209 lb) BMI: 33.73 kg/(m^2) Total weight loss: 15.4 kg (34 lb) [place] weight: 70.3 kg (154 lb 14.5 oz) Excess weight: 38.6 kg (85 lb 1.5 oz) % of excess body weight lost: 15.4 kg (34 lb) (39.96% of excess weight loss) COMPLICATIONS SINCE LAST VISIT?: Nausea / vomiting Diet: liquids/protein shakes - mostly water Sugar: Avoiding Dumping syndrome/symptoms: No Wound issues: No Abdominal pain: Yes - middle and L lateral abdomen Nausea or vomiting: + nausea Reflux: No Gallbladder symptoms: No Hydration status: GOOD Meeting fluid recommendations from RD? Yes Do you feel dry/dark urine/progressive fatigue :No Have you had a bowel movement: Yes Symptoms of vitamin deficiency: No Taking PPI No- prescribed today If prescribed homegoing lovenox - are you taking your lovenox? N/a Activity: walking as tolerated PT: YES Current Outpatient Medications Medication Sig methocarbamol (ROBAXIN) 500 mg tablet Take 1 tablet by mouth four times daily as needed. acetaminophen (TYLENOL) 325 mg tablet Take 2 tablets by mouth every 6 hours as needed for headache for up to 7 days. prochlorperazine (COMPAZINE) 5 mg tablet Take 2 tablets by mouth every 6 hours as needed. scopolamine (TRANSDERM-SCOP) patch 1.5 mg/72 hr (delivers 1 mg over 3 days) Apply one patch behind the ear at least 4 hours prior to exposure and every 3 days as needed. oxyCODONE IR (ROXICODONE) 5 mg immediate release tablet Take 1 tablet by mouth every 6 hours as needed for pain for up to 5 doses. polyethylene glycol 3350 (MIRALAX) 17 gram/dose powder Take 17 g by mouth once daily as needed for constipation. Dissolve dose in 4 - 8 ounces of liquid and take as directed. topiramate (TOPAMAX) 100 mg tablet Take 100 mg by mouth twice daily. multivitamin tablet Take 1 tablet by mouth. Bariatric chewable 2 a day mirtazapine (REMERON) 15 mg tablet Take 1 tablet by mouth daily at bedtime. escitalopram oxalate (LEXAPRO) 10 mg tablet TAKE 1 TABLET BY MOUTH EVERY DAY escitalopram oxalate (LEXAPRO) 5 mg tablet TAKE 1 TABLET BY MOUTH ONCE DAILY. TAKE WITH 10 MG TABLET. hydrOXYzine HCl (ATARAX) 25 mg tablet TAKE 1 TABLET BY MOUTH TWICE A DAY NEEDED FOR ANXIETY/INSOMNIA fluticasone propion/salmeterol (ADVAIR HFA INHALATION) Inhale as instructed. ALBUTEROL INHALATION Inhale as instructed. levothyroxine (SYNTHROID) 100 mcg tablet Take 1 tablet by mouth once daily. famotidine (PEPCID) 40 mg tablet Take 1 tablet by mouth once daily. magnesium gluconate (MAGONATE) 27 mg (500 mg) tab Take 500 mg by mouth once daily. liothyronine (CYTOMEL) 5 mcg tablet Take 5 mcg by mouth once daily. No current facility-administered medications for this visit. Patient Active Problem List Gastric reflux PONV (postoperative nausea and vomiting) Ventral hernia without obstruction or gangrene Abdominal pain S/P laparoscopic sleeve gastrectomy Asthma Abnormal finding on imaging of liver Mild protein-calorie malnutrition (HCC) Intractable upper abdominal pain Right upper quadrant abdominal pain ARSALAN (generalized anxiety disorder) Depression, controlled Situational stress Panic disorder without agoraphobia Trauma and stressor-related disorder Duodenogastric reflux of bile Back pain Malaise and fatigue Chronic bilateral low back pain without sciatica Vertigo GERD (gastroesophageal reflux disease) Hypothyroid RICHAR on CPAP PCOS (polycystic ovarian syndrome) Anemia Nausea Regurgitation of food Heartburn Preoperative examination Class 1 obesity without serious comorbidity with body mass index (BMI) of 33.0 to 33.9 in adult Benign essential HTN Gastric ulcer Resolved Hospital Problems No resolved problems to display. REVIEW OF SYSTEMS: See HPI Denies vomiting, dumping syndrome, reactive hypoglycemia, gustatory rhinorrhea, Denies abdominal pain, constipation, diarrhea, melena, hematochezia, Denies paresthesias, gait abnormality, fatigue, weakness, lower extremity edema, and Denies taking NSAIDs PHYSICAL EXAM: BP 128/81 (BP Site: Right Arm, BP Position: Sitting, BP Cuff Size: Large Adult) Pulse 76 Temp 36.1 C (97 F) Ht 167.6 cm (5' 6 ) Wt 93.4 kg (206 lb) LMP 08/19/2020 SpO2 99% BMI 33.25 kg/m A&O, pleasant, NAD Abdomen: Soft, appropriately tender, no distention. All incisions are well approximated, no erythema, drainage or swelling. Impression: 31 year old female with history of sleeve 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, now 5 days post op s/p LAPAROSCOPIC GASTROJEJUNOSTOMY W/O VAGOTOMY, presented for post op follow up. - Nausea - able to keep hydrated, low protein intake - start PPI today, Rx sent to pharmacy - using compazine PRN - keep working on protein shakes/water/fluids - call office if unable to keep up with fluids or for any other concerns - Post op pain - Take tylenol and robaxin regularly - cold packs to incisions - up and walking t/o day Plan: Next visit 1 month post op visit. Breanna Stern APRN.BETH documented in this encounterOhio[facility]12-[facility] Nurse Note* Lucia Ramirez MA - 02/03/2022 2:53 PM EST What is the reason for your visit today? Follow up Who is your referring physician? Are you having poor oral intake? A little Have you had unintentional weight loss of 15 lbs/7 Kg in the last 3-6 months? NO Bowels: regular Wound: Temperature: No Drains: No documented in this encounterOhio[facility]12-20-2022 Miscellaneous Notes* Telephone Encounter - Li Kimball RN - 02/03/2022 10:31 AM EST I spoke to the patient and advised that Robaxin was prescribed for her pain. Patient states she started it this morning and it has only helped a bit. Patient states she is having some nausea after drinking as well. Patient is scheduled for follow up today at 3pm with Breanna Stern CNP. iL Kimball RN * Telephone Encounter - Li Kimball RN - 02/02/2022 9:06 AM EST I spoke to the patient and she states her lower abdominal pain is a 6/10, constant. She states the pain is slowly improving but remain uncomfortable and it is not relieved with Tylenol. Patient states she had pain relief in the hospital with the Robaxin and oxycodone. I scheduled the patient for a post-op follow-up for 02/03/2022. Li Kimball RN documented in this encounterOhio[facility]12-19-2022 Miscellaneous Notes* Telephone Encounter - Li Kimball RN - 02/02/2022 2:39 PM EST See 02/02/2022 MyChart encounter Li Kimball RN * Telephone Encounter - Olga Paul - 02/02/2022 8:46 AM EST Patient called in and will like a refill on pain medication. Patients pharmacy is the [facility] in [place]. Contact# [phone] documented in this encounterOhiohealth O[facility]12-16-2022 NoteHNO ID: [id number] Author: Chely Jurado ([employer]acker) Service: Pharmacy Author Type: ? Type: Plan of Care Filed: 02/04/2022 12:09 PM Note Text: PHARMACY BEDSIDE DELIVERY SERVICE Patient Name: Abbey Garcia The marked outpatient medications were filled and delivered bedside. Medication List START taking these medications acetaminophen 325 mg tabletX Commonly known as: TYLENOL Take 2 tablets by mouth every 6 hours as needed for headache for up to 7 days. oxyCODONE IR 5 mg immediate release tabletX Commonly known as: ROXICODONE Take 1 tablet by mouth every 6 hours as needed for pain for up to 5 doses. polyethylene glycol 3350 17 gram/dose powder Commonly known as: MIRALAX Take 17 g by mouth once daily as needed for constipation. Dissolve dose in 4 - 8 ounces of liquid and take as directed. prochlorperazine 5 mg tabletX Commonly known as: COMPAZINE Take 2 tablets by mouth every 6 hours as needed. scopolamine 1 mg over 3 daysX Commonly known as: TRANSDERM-SCOP Apply one patch behind the ear at least 4 hours prior to exposure and every 3 days as needed. CONTINUE taking these medications ADVAIR HFA INHALATION ALBUTEROL INHALATION * escitalopram oxalate 5 mg tablet Commonly known as: LEXAPRO TAKE 1 TABLET BY MOUTH ONCE DAILY. TAKE WITH 10 MG TABLET. * escitalopram oxalate 10 mg tablet Commonly known as: LEXAPRO TAKE 1 TABLET BY MOUTH EVERY DAY famotidine 40 mg tablet Commonly known as: PEPCID Take 1 tablet by mouth once daily. hydrOXYzine HCl 25 mg tablet Commonly known as: ATARAX TAKE 1 TABLET BY MOUTH TWICE A DAY NEEDED FOR ANXIETY/INSOMNIA levothyroxine 100 mcg tablet Commonly known as: SYNTHROID Take 1 tablet by mouth once daily. liothyronine 5 mcg tablet Commonly known as: CYTOMEL magnesium gluconate 27 mg (500 mg) Tab Commonly known as: MAGONATE mirtazapine 15 mg tablet Commonly known as: REMERON Take 1 tablet by mouth daily at bedtime. multivitamin tablet TOPAMAX 100 mg tablet Generic drug: topiramate * This list has 2 medication(s) that are the same as other medications prescribed for you. Read the directions carefully, and ask your doctor or other care provider to review them with you. You might also be taking other medications not listed above. If you have questions about any of your other medications, talk to the person who prescribed them or your Primary Care Provider. Chely Jurado ([employer]) PAGER: [phone] January 30, 2022 12:08 [facility]12-16-2022 NoteHNO ID: [id number] Author: Asiya Devries MD Service: General Surgery Author Type: Resident Type: Progress Notes Filed: 01/30/2022 9:38 AM Note Text: SURGERY INPATIENT PROGRESS NOTE Patient Name: Abbey Garcia Assessment and Plan: 31 year old female with history of asthma, gastric ulcer, RICHAR, ventral hernia, PCOS, appendectomy, cholecystectomy, MARILEE and severe GERD s/p lap sleeve gastrectomy in August 2020 who was admitted on 01/29/2022 for RYGB. POD 1 s/p RYGB Expectant postoperative course; optimal analgesia. Neuro/Pain: continue multimodal pain regimens Cardioresp: Incentive spirometry FEN/GI: Advance to phase 2, decadron, antiemetics prn Renal: Strict I/Os. Replete lytes prn Heme: no indication for transfusion ID: preop ancef complete Endo: none Prophylaxis: chemoppx, SCDs Dispo: RNF. DC pending PO tolerance Plan to be discussed with Surgery Staff Dr. Jacquelyn Devries MD General Surgery PGY-1 For team paging 6AM-6PM during weekdays: [phone] for [facility] Team For team paging after 6PM or on weekend / holidays: [phone] for General Surgery Subjective: No acute events overnight. Pain well controlled. Had nausea and vomiting while drinking Physical Exam: BP 121/58 Pulse 69 Temp 36.7 ?C (98.1 ?F) (Oral) Resp 17 Ht 167.6 cm (5' 6 ) Wt 94.8 kg (209 lb) LMP 08/19/2020 SpO2 96% BMI 33.73 kg/m? GENERAL: Alert and oriented, no acute distress, cooperative. LUNGS: Non labored breathing ABDOMEN: soft, appropriately tender, non distended. WOUND: clean, dry and intact Labs: CBC, BMP, MG, PHOS Recent Labs 01/30/22 0643 01/28/22 0936 03/18/21 0924 02/01/21 0904 12/31/20 1440 12/25/20 0356 12/24/20 0759 12/23/20 1929 WBC 5.40 4.05 3.60* < > 4.44 4.40 3.57* 4.53 HB 11.3* 14.6 11.1* < > 11.7 11.8 11.3* 10.9* HCT 33.3* 42.9 36.2 < > 36.2 36.4 35.2* 34.7* PLT 189 247 244 < > 239 282 273 319 NA 140 137 139 < > 138 140 141 142 K 3.7 4.3 4.2 < > 3.4* 3.6* 3.5* 3.8 CHLOR 110* 105 105 < > 106* 105 106* 108* CO2 20* 22 24 < > 21* 26 26 26 BUN 10 9 10 < > 9 4* 4* 5* CREAT 0.78 0.68 0.82 < > 0.84 0.76 0.77 0.80 GLUC 105* 77 61* < > 80 84 92 104* CA 8.6 9.3 9.0 < > 8.9 9.1 8.8 8.8 MG -- -- -- -- 2.0 1.9 1.8 1.9 P -- -- -- -- -- 4.2 3.4 3.3 < > = values in this interval not displayed. Liver Function, Amylase, AND Lipase Recent Labs 03/18/21 0924 03/13/21 1032 02/01/21 0904 04/07/20 0527 04/06/20 0536 02/04/20 0725 02/03/20 1458 02/03/20 0032 TPROT 6.8 7.2 7.1 < > 6.6 < > 6.5 -- ALB 4.2 4.4 4.5 < > 4.1 < > 4.1 -- ALT 14 14 11 < > 20 < > 12 -- AST 26 34 23 < > 29 < > 21 -- ALKPHOS 61 65 66 < > 59 < > 52 -- TBILI 0.3 0.3 0.2 < > 0.4 < > 0.3 -- LACT -- -- -- -- 0.8 -- 0.9 0.83 < > = values in this interval not displayed. Coags Recent Labs 04/05/20 1514 04/05/20 1400 APTT 27.2 -- INR 1.0 1.0 Intake and Output: Date 01/29/22 07 - 01/30/22 0659 01/30/22 0700 - 01/31/22 0659 Shift 0145-2177 2878-4138 8997-8327 24 Hour Total 6278-4821 8573-2257 1802-3734 24 Hour Total INTAKE PO 50 50 PO 50 50 IV 2863 534 6888 2397 Volume (mL) (tranexamic acid (CYKLOKAPRON) in NaCl 0.7%) 200 200 Volume (mL) (lactated ringers iv infusion) 800 800 Volume (mL) (lactated ringers iv infusion) 233 1164 1397 Shift Total 3867 275 0166 2447 OUTPUT Urine 600 600 Void (ml) 600 600 Emesis 0 0 Emesis (ml) 0 0 # of BMs Number of BMs 0 x 0 x Blood 10 10 Estimated Blood loss 10 10 Shift Total 10 0 600 610 Weight (kg) 94.8 94.8 94.8 94.8 94.8 94.8 Current Medications: Current Facility-Administered Medications Medication Dose Route Frequency mirtazapine 15 mg (REMERON) 15 mg ORAL AT BEDTIME topiramate 100 mg tab(s) (TOPAMAX) 100 mg ORAL BID escitalopram oxalate 15 mg tab(s) (LEXAPRO) 15 mg ORAL DAILY liothyronine 5 mcg tab(s) (CYTOMEL) 5 mcg ORAL DAILY enoxaparin 40 mg injection (LOVENOX) 40 mg SUBCUTANEOUS q 24 HR NaCl 0.9% iv flush bag 20 mL INTRAVENOUS PRN lactated ringers iv infusion 125 mL/hr INTRAVENOUS CONTINUOUS melatonin 3 mg tab(s) 3 mg ORAL DAILY (8 PM) ondansetron (PF) 4 mg injection (ZOFRAN) 4 mg INTRAVENOUS q 6 H PRN acetaminophen 650 mg tab(s) (TYLENOL) 650 mg ORAL q 6 H PRN oxyCODONE 5-10 mg oral liquid (ROXICODONE) 5-10 mg ORAL q 6 H PRN simethicone, chewable 80 mg tab(s) (MYLICON) 80 mg ORAL PC and HS prochlorperazine 5 mg injection (COMPAZINE) 5 mg INTRAVENOUS q 6 H PRN senna-docusate 8.6-50 mg 1 tablet (SENNA-S) 1 tablet ORAL BID methocarbamol 500 mg tab(s) (ROBAXIN) 500 mg ORAL TID levothyroxine (SYNTHROID) tab(s) 125 mcg 125 mcg ORAL DAILY scopolamine 1 mg over 3 days 1 Patch (TRANSDERM-SCOP) 1 Patch TRANSDERMAL q 72 HR And [START ON 02/02/2022] scopolamine - REMOVE PATCH OTHER q 72 HR And scopolamine - VERIFY patch OTHER q 8 H *A review of daily goals, interventions, and plan of care with the multidisciplinary team and patient has been c (more content not included)... [facility] [id number] NoteHNO ID: [id number] Author: Tab Oseguera MD, PhD Service: General Surgery Author Type: Resident Type: Plan of Care Filed: 01/29/2022 4:00 PM Note Text: Surgery Post-Op Check Abbey Estela Jose [id number] FV OR POOL/FV OR POOL January 29, 2022 S: Still in PACU. Some nausea, improved with IV medication. Pain tolerated. Tolerating clears/ice. O: Current Facility-Administered Medications Medication Dose Route Frequency albuterol 2.5 mg /3 mL (0.083 %) 2.5 mg (PROVENTIL) 2.5 mg INHALATION q 6 H PRN lactated ringers iv infusion 150 mL/hr INTRAVENOUS CONTINUOUS ondansetron 4 mg tab(s) (ZOFRAN) 4 mg ORAL q 6 H PRN Or ondansetron (PF) 4 mg injection (ZOFRAN) 4 mg INTRAVENOUS q 6 H PRN diphenhydrAMINE 50 mg injection (BENADRYL) 50 mg INTRAVENOUS q 4 H PRN scopolamine 1 mg over 3 days 1 Patch (TRANSDERM-SCOP) 1 Patch TRANSDERMAL PRN And scopolamine - VERIFY patch OTHER q 8 H And [START ON 01/30/2022] scopolamine - REMOVE PATCH OTHER ONCE Patient Vitals for the past 24 hrs: BP Temp Temp src Pulse Resp SpO2 01/29/22 1430 139/61 -- -- 70 -- 100 % 01/29/22 1400 133/66 -- -- 65 -- 100 % 01/29/22 1345 -- -- -- 62 -- 100 % 01/29/22 1330 130/71 -- -- 61 -- 98 % 01/29/22 1315 -- -- -- 62 15 100 % 01/29/22 1300 132/70 -- -- 67 14 99 % 01/29/22 1245 -- -- -- 63 13 98 % 01/29/22 1230 136/57 -- -- 80 14 98 % 01/29/22 1215 -- -- -- 66 13 97 % 01/29/22 1200 121/52 -- -- (!) 59 18 96 % 01/29/22 1151 141/63 -- -- 88 14 92 % 01/29/22 1145 141/63 -- -- 61 14 94 % 01/29/22 1130 146/62 -- -- 72 17 94 % 01/29/22 1115 149/70 -- -- 76 27 93 % 01/29/22 1100 148/73 -- -- 85 15 96 % 01/29/22 1058 134/53 -- -- 90 18 99 % 01/29/22 1045 134/53 -- -- (!) 58 15 97 % 01/29/22 1044 -- -- -- 66 16 97 % 01/29/22 1032 155/73 36.2 ?C (97.2 ?F) Temporal 85 20 99 % 01/29/22 0703 128/79 36.4 ?C (97.5 ?F) -- 65 18 99 % 01/28 1500 - 01/29 1459 In: 1000 [IV:1000] Out: 10 Gen: Alert, no NAD CV: RRR, no RMG, no edema Resp: LCTAB, no respiratory distress Abdomen: Soft, nondistended, appropriately tender. Incision intact without erythema, induration or drainage. LABS CBC, Coags, BMP, Mg, Phos Recent Labs 12/14/22 0936 WBC 4.05 HB 14.6 HCT 42.9 PLT 247 NA 137 K 4.3 CHLOR 105 CO2 22 BUN 9 CREAT 0.68 GLUC 77 CA 9.3 ASSESSMENT and PLAN: Abbey Garcia is POD 0 s/p sleeve to RYGB. -overall doing well, expected post op course -Pain controlled -Diet: Phase 1 bariatric -Continue ambulation, activity, incentive spirometry -SCDs for DVT prophylaxis ; lovenox tomorrow -No Costello Present Tab Oseguera MD, PhD General Surgery, PGY5 For team paging 6AM-6PM during weekdays: [phone] for [facility] Team For team paging after 6PM or on weekend / holidays: [phone] for General SurgeryFall River [id number] NoteHNO ID: [id number] Author: SARA Farfan Service: ? Author Type: Hot Top Liner Helper Type: Anesthesia Procedure Notes Filed: 01/29/2022 8:28 AM Note Text: ANESTHESIOLOGY PROCEDURE NOTE Airway General Information Procedure Start Time/Medication Administration: 01/29/2022 7:43 AM Patient location during procedure: OR Staffing Anesthesiologist: Angela Andrade MD CAA: SARA Farfan Performed by: ORLANDO Indications and Patient Condition Indications for airway management: anesthesia Preoxygenated: yes anesthesia circuit Method: rapid sequence Cricoid Pressure: Yes Final Airway Details Final airway type: endotracheal airway Final Endotracheal Airway: ETT Cuffed: yes Successful intubation technique: video laryngoscopy Devices used: [employer] Endotracheal tube insertion site: oral Blade: Cherrie Blade size: #4 ETT size (mm): 7.0 Measured from: lips Measurement (cm): 21 Placement verified by: capnometry Cormack-Lehane Classification: grade IIa - partial view of glottis Number of attempts at approach: 1 Airway not difficult SIGNATURE: SARA Farfan PATIENT NAME: Abbey Garcia DATE: January 29, 2022 TIME: 8:00 AM CSN: [id number] History and physical note* Ioana Hogan PA-C - 01/28/2022 8:35 AM EST HISTORY AND PHYSICAL EXAMINATION SERVICE DATE: 01/28/2022 SERVICE TIME: 8:35 AM PRIMARY CARE PHYSICIAN: Wally Foley MD REASON FOR VISIT: Abbey Garcia is a 31 year old female who is scheduled for laparoscopic gastrojejunostomy w/o vagotomy at the request of Dr. Deacon Kat for consultation. My final recommendation will be communicated back to the requesting physician by way of shared medical record or letter. 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 Patient is status post laparoscopic sleeve gastrectomy in August 2020. Since that surgery she has been experiencing severe gastroesophageal reflux. She states it is constant throughout the day and can sometimes vomit. Shealso has been experiencing epigastric and left upper quadrant abdominal pain as well as throat pain. She also has a history of ulcers in the past. She has tried taking oral medications with no relief. She also complains of chronic constipation, but denies any diarrhea, melena, hematochezia. She hasbeen diagnosed with gastroesophageal reflux disease with esophagitis without hemorrhage and has been recommended for the above surgery. PAST MEDICAL HISTORY Diagnosis Date Anemia Takes Pro FE daily. Arthritis Asthma Class 1 obesity without serious comorbidity with body mass index (BMI) of 33.0 to 33.9 in adult 09/25/2019 Gastric ulcer 2014 GERD (gastroesophageal reflux disease) History of IBS Hypertension Hypothyroid RICHAR on CPAP wears mask every night PCOS (polycystic ovarian syndrome) Ventral hernia without obstruction or gangrene PAST SURGICAL HISTORY Procedure Laterality Date APPENDECTOMY 08/2019 CHOLECYSTECTOMY COLONOSCOPY GEN ANES EGD F TOTAL ABDOMINAL HYSTERECTOMY PAST SURGICAL HISTORY OF Bilateral arthroscopic knee surgery- was catcher in [employer] PAST SURGICAL HISTORY OF 08/2020 gastric sleeve PICC LINE INSERT/CONSULT 12/24/2020 VAGINAL DELIVERY AFTER DELIVERY Three C-sections FAMILY HISTORY Problem Relation Age of Onset Diabetes Mother Hypertension Mother Obesity Mother Hypertension Father Hypertension Brother Obesity Brother Hypertension Brother Obesity Brother SOCIAL HISTORY: Social History Tobacco Use Smoking status: Never Smokeless tobacco: Never Substance Use Topics Alcohol use: Not Currently Drug use: Never Comment: denies tx for drug/alcohol abuse in the past. MEDICATIONS: Prior to Admission medications as of 01/28/22900 Medication Sig Last Dose Taking multivitamin tablet Take 1 tablet by mouth. Bariatric chewable 2 a day Taking Yes mirtazapine (REMERON) 15 mg tablet Take 1 tablet by mouth daily at bedtime. Taking Yes escitalopram oxalate (LEXAPRO) 10 mg tablet TAKE 1 TABLET BY MOUTH EVERY DAY Taking Yes escitalopram oxalate (LEXAPRO) 5 mg tablet TAKE 1 TABLET BY MOUTH ONCE DAILY. TAKE WITH 10 MG TABLET. Taking Yes hydrOXYzine HCl (ATARAX) 25 mg tablet TAKE 1 TABLET BY MOUTH TWICE A DAY NEEDED FOR ANXIETY/INSOMNIA Taking Yes fluticasone propion/salmeterol (ADVAIR HFA INHALATION) Inhale as instructed. Taking Yes ALBUTEROL INHALATION Inhale as instructed. Taking Yes levothyroxine (SYNTHROID) 100 mcg tablet Take 1 tablet by mouth once daily. Taking Yes famotidine (PEPCID) 40 mg tablet Take 1 tablet by mouth once daily. Taking Yes magnesium gluconate (MAGONATE) 27 mg (500 mg) tab Take 500 mg by mouth once daily. Taking Yes liothyronine (CYTOMEL) 5 mcg tablet Take 5 mcg by mouth once daily. Taking Yes No medication comments found. CURRENT ALLERGIES: ALLERGIES Allergen Reactions Adhesive Tape-Silic* Intolerance Sensitive to certain adhesive tapes. Redness and itchy. Codeine GI Upset COVID VACCINATION STATUS: Fully vaccinated REVIEW OF SYSTEMS: PAIN ASSESSMENT: General: No weight loss, malaise or fevers. Neuro: No history of TIA's, stroke, DISTRIBUTOR SALES MANAGER tumor, impaired sensorium, hemiplegia, paraplegia or quadraplegia. No neurological symptoms or problems. Respiratory: +RICHAR, asthma Negative for COPD, Current cough, Dyspnea, Home O2, Pneumonia within 6 weeks (date), Wheezing Cardiovascular: +hx HTN during /post , resolved. Negative for Recent NM, Angina, CAD, Chest Pain, CHF, DVT/PE GI: +GERD, s/p laparoscopic sleeve gastrectomy See HPI : +hx of kidney stones Negative for dysuria, frequency, incontinence, and hematuria Endocrine: +hypothyroidism Denies any history of other endocrine symptoms/problems. Hematology: +anemia, taking iron Denies any history of other hematological symptoms/problems Oncology: No history of CA metastasis, chemo within 30 days, or radiotherapy within 90 days. Has not lost 10% of body wt in 6 months. No history of oncological symptoms or problems. Psych: +ARSALAN Musculoskeletal: Negative for joint pain or swelling, back pain or muscle pain. Skin: Negative for lesions, rash and itching. Objective PHYSICAL EXAM: VITALS: BP 131/85 Pulse 65 Temp (Src) 97.9 (Oral) Resp 16 Ht 5' 6 (1.68m) Wt 209 lb (94.8kg) SpO2 100% LMP 08/19/2020 BMI 33.75 kg/(m^2). General: Alert and oriented Skin: Normal color, no rash, no lesions. HEENT: EOM, pupils equal, round and reactive. Cardiovascular: Normal S1 & S2, no rubs, murmurs or gallops. No JVD. Pulse regular. Lungs: Normal breath sounds, no wheezes or crackles. Abdomen: Soft, non-tender, no rigidity. Extremities: No deformity, no edema or tenderness, no joint swelling or clubbing. Neurological: Normal cognition and motor skills. Pulses: Carotid and radial pulses normal +2. Diagnostic tests reviewed for today's visit: Lab Value Units Date High Low HB 14.6 g/dL 01/28/2022 15.5 11.5 HCT 42.9 % 01/28/2022 46.0 36.0 WBC 4.05 k/uL 01/28/2022 11.00 3.70 PLT 247 k/uL 01/28/2022 400 150 NA 137 mmol/L 01/28/2022 144 136 K 4.3 mmol/L 01/28/2022 5.1 3.7 GLUC 77 mg/dL 01/28/2022 99 74 BUN 9 mg/dL 01/28/2022 21 7 CREAT 0.68 mg/dL 01/28/2022 0.96 0.58 PTSEC No results within date range. INR No results within date range. APTT No results within date range. ALT No results within date range. AST No results within date range. TBILI No results within date range. TSH No results within date range. Lab Value Units Date High Low HCGQT No results within date range. UHCG No results within date range. HCG, BODY* No results within date range. Lab Value Units Date High Low ABORHD No results within date range. ABSCREEN No results within date range. Hemoglobin A1C (%) Date Value 11/08/2019 5.1 EKG- completed today in office- 12/31/20 Normal sinus rhythm Normal ECG EKG- 12/31/20 Diagnosis: NORMAL SINUS RHYTHM NORMAL ECG Assessment/Plan 1. Pre-op evaluation - CBC; Future - BASIC METABOLIC PNL; Future - ECG COMPLETE; Future - TYPE AND SCREEN,30 DAY; Future 2. Benign essential HTN BP 131/85. No RX medications. Denies any CP, dizziness, double vision, or BOLTON. Stable. 3. RICHAR on CPAP Occasionally uses CPAP, but mostly noncompliant. 4. Mild intermittent asthma without complication Uses daily inhalers. Uses the rescue inhaler maybe once a day if needed, symptoms worse in the winter. Denies any BOLTON, SOB, wheezing, or cough. Lungs CTAB today and SpO2 100% RA. 5. Anemia, unspecified type Taking iron supplement. Will get CBC today. 01/28/22 11:19 AM CBC WNL. Stable. 6. Class 1 obesity without serious comorbidity with body mass index (BMI) of 33.0 to 33.9 in adult,unspecified obesity type BMI 33.73 METS: Climb a flight of stairs or walk up a hill (5.50 METs) Patient denies any chest pain or undue shortness of breath with the above physical activity. ASA Class: 3 ANESTHESIA FINDINGS: Intubation History: No history of difficult intubation Significant Anesthesia Considerations: Postop nausea/vomiting Airway Exam: General: Normal appearance Mallampati Score is CLASS II ULBT: Class I - Lower incisors can bite the upper lip above the deborah line Neck: Normal appearance and function, Distance from hyoid to mentum during neck extension is at least 3 finger breaths Mouth: Normal tongue size and Mouth opening greater than 2 finger breaths Dentition: Intact Airway History: No abnormal airway history Sleep Apnea Probability Snores loudly: Yes Tired, fatigued or sleepy in daytime: No Stops breathing or choking/gasping during sleep: Yes High blood pressure: No Sleep Apnea Probability Score 01/21/2022 02/19/2020 Sleep Apnea Screen V2 11 (Sleep study not recommended) 22.1 (Sleep study not recommended) PLAN This patient is optimally prepared for surgery. CONSULTS: Patient does not require consults for optimization at this time. The Following Tests/Procedures Have Been Initiated: Orders Placed This Encounter CBC Standing Status: Future Number of Occurrences: 1 Standing Expiration Date: 03/30/2022 BMP Standing Status: Future Number of Occurrences: 1 Standing Expiration Date: 03/30/2022 Type and Screen, 30 day Standing Status: Future Number of Occurrences: 1 Standing Expiration Date: 03/30/2022 multivitamin tablet Sig: Take 1 tablet by mouth. Bariatric chewable 2 a day ECG COMPLETE Standing Status: Future Standing Expiration Date: 01/28/2023 EKG Order Comments: Ordered by an unspecified provider Planned Anesthetic: Per anesthesia choice Instructions Given to Patient: Instructions located in the after visit summary. Patient given verbal and written preop instructions and voices comprehension and compliance. SIGNATURE: Ioana Hogan PA-C PATIENT NAME: Abbey Garcia DATE: January 28, 2022 TIME: 11:05 AM documented in this encounterOhiohealth O'[facility]12-08-2022 Instructions* Patient Instructions* Ioana Hogan PA-C - 01/22/2022 11:55 AM EST PATIENT PREOPERATIVE INSTRUCTIONS Deacon Kat MD has scheduled you for your procedure at this surgery center: [facility]: [phone] --[id number] [id number]. Please check in on the1st floor at registration desk 6. - Lab work ordered today, recommend completing today Arrival Time for Surgery: - The Surgery Center or hospital where you are having surgery will call the afternoon before surgery (or Wednesday for Wednesday surgery) with a scheduled arrival time. - If you have not heard by 4 pm, please contact the surgery center above. Please be aware that emergency situations arise, which may delay or change your surgical time. If this happens, we will notify you as soon as possible and regret any inconvenience. Please read below carefully for your personalized instructions. Dietary Restrictions: - You may have 12 ounces of clear liquids (water, clear juices such as apple juice or gatorade, carbonated beverages, clear tea, black coffee, jello) until 2 hours before scheduled arrival at facility. Medications: Unless instructed differently below, stay on all of your medications until your surgery. Approved medications to take the morning of surgery with a sip of water: mirtazapine (Remeron), escitalopram oxalate (Lexapro), Levothyroxine (Synthroid), famotidine (Pepcid), liothyronine (Cytomel) If you start any new medications after today's visit, please contact the surgeon's office. Blood Thinning Medications: - Stop NSAIDS (Ibuprofen, Advil, Aleve, Motrin, Celebrex, Mobic, etc.) 7 days before surgery, as directed by your surgeon. - Stop Aspirin 7 days before surgery, as directed by your surgeon. - Stop Vitamin E, ALL multi-vitamins, herbals and dietary supplements 7 days before surgery. - You may take Tylenol (Acetaminophen) or any of your pain medications that do not contain aspirin or NSAIDS as needed. - Stop hydroxyzine (Atarax) 7 days before surgery . Important Reminders: - If you use CPAP/BIPAP, bring the machine with you to the surgery center. - If you are prescribed inhalers for breathing, continue using them. - Candy, mints, and tobacco products are NOT permitted the morning of surgery. - Hearing aids, dentures and glasses may be worn the morning of surgery. - NO jewelry, body piercings, makeup, hairpins or contacts are to be worn the day of surgery. If you develop symptoms such as a fever, cold, or flu, or have other changes to your health within TWO DAYS of scheduled surgery or the morning of surgery, please contact the surgery center above. Personal Belongings: -Please have photo ID and insurance cards. -If you do not have a copy of advance directives on file with us, please bring a copy with you on the day of surgery. - Leave ALL valuables and money at home or with family members. For Outpatient Procedures: - YOU MUST HAVE A RESPONSIBLE CIVIL SERVICE CLERK TAKE YOU HOME. A EDITORIAL ASSISTANT OR LOCK MASTER CANNOT BE MADE A RESPONSIBLE CIVIL SERVICE CLERK. - We recommend that a responsible person stays with you overnight to take care of you. - You cannot stay in a hotel alone after outpatient surgery. You will not be permitted to have yoursurgery, if you do not have someone to take care of you. If you already have an Advance Directive, please fax a copy to [phone] or email to for it to be added to your chart. If you do not have an Advance Directive, you can find the appropriate form and more information at [email or web address]. We recommend that youcomplete the Advance Directive form found on the website and bring it with you the day of your surgery. It can be witnessed and scanned into your chart that day. Ioana Hogan PA-C documented in this encounterOhiohealth O'Blen[facility]12-06-2022 Miscellaneous Notes* Telephone Encounter - Li Kimball RN - 01/20/2022 9:34 AM EST I spoke to patient and she advised that she would like to move her surgery to 01/29/2022. Li Kimball RN * Telephone Encounter - Li Kimball RN - 01/20/2022 8:57 AM EST I called the patient and left a message for her to call back if she is interested in moving her surgery up to 01/29/2022. Call back number provided. Li Kimball RN documented in this encounterOhiohealth O'[facility]len[facility]11-22-2022 Miscellaneous Notes* Telephone Encounter - Li Kimball RN - 01/06/2022 10:05 AM EST I called patient and she would like to schedule her GJ revision for 02/05/2022. Patient states she is drinking 2 protein shakes a day and is eating a small meal and she will continue to keep this diet up to surgery. I advised patient that she needs a PACC appointment and that it may need to be in person. Patient stated understanding and had no further questions. Li Kimball RN documented in this encounterOhiohealth O'[facility]len[facility]11-18-2022 Instructions* Patient Instructions* Sabina Joy APRN.OBGYN HOSPITALIST PHYSICIAN - 01/02/2022 11:29 AM EST Images from the original note were not included. Mutually Agreed Upon Goals Eating Plan: The [employer] Pal BRE - Log intake 2 days per week. Replace skipped meals with a protein supplement. Bariatric Plate Method. Increase fluids to at least 64 oz per day. Miralax for constipation. Activity: Apple Watch or FitBit tracker or Step Counter. Increase as tolerated. Sleep: No electronic for 30 minutes prior to sleep 2 nights per week. Practice Sleep Hygiene. SleepMedicine consult for CPAP mask fitting. Stress: BRE for meditation - Mindful Moments by [facility] [employer]. [employer]. Insight Timer [email or web address] How can I fix my acid reflux after gastric sleeve surgery? Written by Nathalie Emery RD, LDN and medically reviewed by Dr. Dimitri Chance MD If you suffered from acid reflux before gastric sleeve surgery, then you may be unpleasantly surprised that acid reflux is still something you will have to deal with. In this article, we ll talk about why acid reflux still occurs after surgery and what you can do tomake it better. We ve even included a 1-Day meal plan to help you get started with managing your acid reflux. What is acid reflux? A normal stomach without acid reflux and a stomach with acid reflux Acid reflux. GERD. Heartburn. You may see these terms used interchangeably, but they have medicallydifferent definitions. Acid Reflux: A condition in which stomach acid bubbles up into the esophagus. This occurs from a weak sphincter muscle at the junction of the stomach and esophagus. Called the lower esophageal sphincter (LES), its job is to keep food and acid in the stomach. GERD: Chronic and/or severe acid reflux. It s diagnosed when someone has acid reflux at least twiceper week along with confirmation from other exploratory measures. GERD has the potential to cause inflammation Heartburn: A symptom of acid reflux and GERD. It s described as a burning or painful sensation in the chest, esophagus and throat. Causes and risk factors for these conditions include: Weakness in the LES Certain medications like antidepressants and NSAIDs Being overweight or obese* Hiatal hernia Drinking alcohol* Smoking* *Controllable risk factors Risk factors for Acid Reflux GERD and Heartburn There are some acid reflux risk factors that you can t control. However, modifying controllable risk factors (along with our tips below) can help you manage acid reflux. Why is my acid reflux worse after gastric sleeve surgery? While some types of bariatric surgeries are known to improve acid reflux, gastric sleeve may not beone of them. Some research shows that gastric sleeve surgery may increase acid reflux presence. Why? Gastric sleeve procedures can decrease the pressure around the LES, making it weak. Couple that with increased pressure in the stomach when stomach size is reduced during surgery. The possibility of developing acid reflux should be considered before consenting to a gastric sleeve procedure. Gastric sleeve and GERD Management of GERD and acid reflux is a huge focus in the bariatric surgery population. Being overweight or obese may increase your risk of acid reflux, GERD and further complications compared to someone of a healthy weight (3-4). Here are other reasons why acid reflux may be so prevalent in the obese population: Pressure on the stomach due to belly fat Consumption of large meals that lead to stomach distention Diets high in fatty foods (i.e. fast food, fried food) Sedentary lifestyle Presence of hiatal hernia Effects of acid reflux Acid reflux affects quality of life, sleep and may lead to food aversions. It can also cause inflammation in the esophagus. Cell damage in your esophagus can lead to Wiseman s esophagus, ulcers or cancer. When a patient continues to have acid reflux (or gets it post-surgery), this adds undue stress to an already overwhelming time. GERD and acid reflux can be relieved with weight loss, but if weight loss is gradual or never occurs, patients may continue to deal with symptoms months or years after surgery. Some patients even consider gastric sleeve revision with a Tan-en-Y gastric bypass. Another optionis fundoplication surgery where part of the stomach is wrapped around the LES to strengthen it. Fundoplication surgery to alleviate GERD after gastric sleeve surgery It s important that you and your healthcare team explore all bariatric surgery options and the long-term effects of each. Gastric sleeve and hiatal hernia While it may seem that gastric sleeve surgery isn t a reliable way to reduce acid reflux, one smallstudy found that having a gastric sleeve procedure with hiatal hernia repair might be beneficial for GERD. However, other research indicates that having a hiatal hernia repair with gastric sleeve surgery did not provide significant improvements. What s even more important is what happens to the hiatal hernia and GERD relationship after surgery. A 2020 study found that people who experience GERD after a gastric sleeve and hiatal hernia repairmay be at higher risk of getting another hiatal hernia. So, frequent acid reflux symptoms post-surgery should be brought up with your doctor. How to fix acid reflux after gastric sleeve surgery There are 3 main ways to relieve acid reflux: medications, dietary habits and behavioral changes: Medications Dietary habits Behavioral and Lifestyle changes Ways to fix acid reflux after gastric sleeve surgery You may find that one of these methods works great, but you may get more benefit if you include allmethods. Medications for acid reflux Antacids neutralize stomach acid. Ask your doctor which antacids are appropriate for you. H2 blockers work to reduce stomach acid before it forms. Proton pump inhibitors also work to reduce stomach acid but are usually stronger and faster than [id number]. Dietary habits for acid reflux Reduce or avoid common acid reflux trigger foods. These include alcohol, tomato products, chocolate, coffee, spicy food, carbonated drinks, peppermint, greasy foods and fatty foods. Reduce or avoid personal trigger foods that you ve noticed give you trouble. Avoid drinking liquids with meals or snacks. Eat your meal and then wait at least 30 minutes beforeconsuming liquids. Eat small meals, rather than large meals, to prevent stomach distension Avoid eating late at night, especially if you re about to lie down. Behavioral changes for acid reflux Quit smoking. Wear loose clothing. Avoid lying down right after eating. Keep your head raised at least 6 inches when sleeping or lounging. Continue your weight loss eating and exercise plan. Losing weight can help reduce acid reflux. 1-Day meal plan to reduce acid reflux symptoms Your healthcare team may have specific dietary guidelines for you, so do your best to follow them. Size of meals and drinks: You may need to consume meals 1-2 Tbsp at a time and gradually increase. Texture: Ask your doctor or Registered Dietitian if you need to blend, puree or dice your food. Texture will be dependent on how long ago your gastric sleeve surgery occurred. Portions to continue weight loss: Ask for guidance on the exact right portions for your needs. Sample Meal Plan to Try Breakfast: 1 scrambled egg (75 calories) Burmese muffin (67 calories) Calories per meal: 142 AM Snack & Fluids: *Spread out and sipped between meals 2 cups water (0 calories) 1 cup skim milk or unsweetened soy milk (90 calories) Calories per meal: 90 Lunch: 4 oz canned tuna in water (100 calories) 2 Tbsp fat free ortiz (20 calories) 1 slice low fat New Zealander cheese (50 calories) 1 slice whole grain bread (90 calories) 2 tomato slices (5 calories) Calories per meal: 265 PM Snack & Fluids: *Spread out and sipped between meals 2 cups water (0 calories) 1 cup skim milk or unsweetened soy milk (90 calories) 1 ripe peach, small (51 calories) Calories per meal: 141 Dinner: 3 oz 93% lean turkey (128 calories) 1/2 cup vegetable medley, well cooked (15 calories) 1/2 cup cooked pasta (110 calories) 1 cup watermelon (45 calories) Calories per meal: 298 Nighttime Snack & Fluids: *Spread out and sipped between meals 2 cups water (0 calories) cup nonfat cottage cheese (26 calories) 1/2 banana (53 calories) Calories per meal: 79 Total calories: 1015 While this is only one day s worth of eating, you can easily see the types of foods that are chosenand you can use this as a nice template to make alterations as you need. Use the tables we provided in this article to select safe and healthy foods so you can avoid you acid reflux or heartburn symptoms. In summary Acid reflux, heartburn and GERD can happen to anyone after bariatric surgery. It s uncomfortable, frustrating and can cause issues down the road. Luckily it can be managed pretty well WITHOUT surgery. But if surgery is required, it s been proven to help. Avoid the specific foods we outlined and make a few behavior changes and you ll notice a major improvement in your symptoms! How can I fix my acid reflux after gastric sleeve surgery? (Full meal plan) (Pushpay) .kml documented in this encounterOhiohealth O'[facility]11-18-2022 History of Present illness Narrative* Sabina Joy APRN.CNP - 01/02/2022 11:00 AM EST BMI OM PostOp Note - Virtual Visit January 02, 2022 DISTANCE HEALTH VISIT This Team Access Model visit is a virtual encounter. It required patient- provider interaction for the medical decision making as documented below. Index Surgery Date of Surgery: 09/03/2020 Surgeon: Deacon Kat MD Surgical Procedure: LAPAROSCOPIC LONGITUDINAL GASTRECTOMY, GASTRIC RESTRICTIVE PROCEDURE Pre-surgical weight: 108.9 kg (240 lb) Override Index Surgery Information? No Other Bariatric Surgeries Date of Surgery Surgeon Procedure 10/13/2019 Deacon Kat MD EGD WITH BIOPSY 04/16/2020 Deacon Peña MD LAPAROSCOPY WITH BIOPSY 03/20/2021 Deacon Kat MD LAPAROSCOPY DIAGNOSTIC Visit: 15 months Today's Visit: There were no vitals taken for this visit. BMI 33.09 kg/(m^2) Last Visit: Wt: 93 kg (205 lb) BMI: 33.09 kg/(m^2) Total weight loss: 35 lbs or 14.58 % [place] weight: 70.3 kg (154 lb 14.5 oz) Excess weight: 38.6 kg (85 lb 1.5 oz) % of excess body weight lost: 108.9 kg (240 lb) (282.05% of excess weight loss) COMPLICATIONS SINCE LAST VISIT?: Gastroesophageal reflux disease with esophagitis, constipation INTERVAL HISTORY Here for postop visit with c/o of GERD DIET INTAKE: tolerates Phase V diet, eats 1 meals/day & 2 snacks/day, protein intake: 60 grams,and liquid intake: increasing but feels she is not meeting the minimum. DAILY SUPPLEMENTS: Yes Calcium: included in multivitamin Multivitamin & Minerals: 1 per day - bariatric fusion (instructed to increase) Iron Supplement: included in multi-vitamin Vitamin B12: sublingual gtts Vitamin D3: included in multi-vitamin Other: Magnesium EXERCISE: Limited due to hip and knee pain, 3x per week modified 20 to 30 minutes cardio alternating with strength and resistance. SLEEP: RICHAR Yes , CPAP Yes Are you attending any Support Groups? No attendance Current Outpatient Medications Medication Sig mirtazapine (REMERON) 15 mg tablet Take 1 tablet by mouth daily at bedtime. escitalopram oxalate (LEXAPRO) 10 mg tablet TAKE 1 TABLET BY MOUTH EVERY DAY escitalopram oxalate (LEXAPRO) 5 mg tablet TAKE 1 TABLET BY MOUTH ONCE DAILY. TAKE WITH 10 MG TABLET. hydrOXYzine HCl (ATARAX) 25 mg tablet TAKE 1 TABLET BY MOUTH TWICE A DAY NEEDED FOR ANXIETY/INSOMNIA naproxen (NAPROSYN) 500 mg tablet Take 1 tablet by mouth twice daily as needed for pain. for pain. Take with food. methocarbamol (ROBAXIN) 500 mg tablet Take 1-2 tablets by mouth three times daily as needed (for muscle spasms or pain). fluticasone propion/salmeterol (ADVAIR HFA INHALATION) Inhale as instructed. ALBUTEROL INHALATION Inhale as instructed. levothyroxine (SYNTHROID) 100 mcg tablet Take 1 tablet by mouth once daily. famotidine (PEPCID) 40 mg tablet Take 1 tablet by mouth once daily. topiramate (TOPAMAX) 100 mg tablet Take 100 mg by mouth twice daily. magnesium gluconate (MAGONATE) 27 mg (500 mg) tab Take 500 mg by mouth once daily. liothyronine (CYTOMEL) 5 mcg tablet Take 5 mcg by mouth once daily. No current facility-administered medications for this visit. [facility] OBESITY MEDICINE COMORBIDITIES: Obstructive Sleep Apnea Sleep Apnea no use CPAP, Bi-PAP or similar technology and GERD GERD Requiring medication PHYSICAL EXAM: Wt 93 kg (205 lb) LMP 08/19/2020 BMI 33.09 kg/m VIDEO EXAM: (if done, performed via video enabled technology) No exam performed Assessment 31 year old female with Class I obesity 20 months. s/p LAPAROSCOPIC LONGITUDINAL GASTRECTOMY, GASTRIC RESTRICTIVE PROCEDURE, responding fair. She is following with Dr. Kat for possible revision to RYGB given uncontrolled GERD. Patient Active Problem List Ventral hernia without obstruction or gangrene Abdominal pain S/P laparoscopic sleeve gastrectomy Asthma Abnormal finding on imaging of liver Mild protein-calorie malnutrition (HCC) Intractable upper abdominal pain Right upper quadrant abdominal pain ARSALAN (generalized anxiety disorder) Depression, controlled Situational stress Panic disorder without agoraphobia Trauma and stressor-related disorder Duodenogastric reflux of bile Back pain Malaise and fatigue Chronic bilateral low back pain without sciatica Vertigo GERD (gastroesophageal reflux disease) Hypothyroid RICHAR on CPAP PCOS (polycystic ovarian syndrome) Anemia Nausea Regurgitation of food Heartburn Preoperative examination Class 1 obesity without serious comorbidity with body mass index (BMI) of 33.0 to 33.9 in adult Benign essential HTN Gastric ulcer Resolved Hospital Problems No resolved problems to display. Plan -Follow up Dr. Kat for possible revision to RYGB. DISPOSITION: Return 6 month to Post-op follow up/ individual office visit EDUCATION: Encouraged to continue with healthy lifestyle changes and incorporate cardiovascular andresistance training, Discussed weight loss expectations after bariatric and metabolic surgery, Advised PT to avoid NSAIDs, smoking tobacco given increased risk of marginal ulcers, or Discussed importance of protein intake as per the RDN note REFERRALS: Sleep Medicine for CPAP mask fitting. LABS: Today: not needed. Sabina Joy APRN.BETH I spent a total of 30 minutes on the date of the service which included preparing to see the patient, [id number] patient care, completing clinical documentation, obtaining and/or reviewing separately obtained history, performing a medically appropriate examination, counseling and educating the pat ient/family/caregiver, independently interpreting results (not separately reported), and communicating results to the patient/family/caregiver. Follow up in 6 months. This visit was performed virtually due to the COVID-19 epidemic as an effort to protect patients and minimize exposure. documented in this encounterOhiohealth O[facility]11-17-2022 History of Present illness Narrative* Marisabel Lynn LPN - 01/01/2022 2:41 PM EST 2Name: Abbey Garcia [facility]#: [id number] Date: 01/01/2022 HUERTA 48 HR PH FOLLOW-UP The HUERTA monitor was received today via [employer] transport.. Test data from the tool honing machine set up operator was downloaded. Events from the patient diary were inserted into the study for physician review. .Marisabel Lynn LPN documented in this encounterOhiohealth O'[facility]len[facility]11-10-2022 History of Present illness Narrative* Marisabel Lynn LPN - 12/25/2021 11:28 AM EST Name: Abbey Garcia [facility]#: [id number] Date: 12/25/2021 48hr HUERTA PH CAPSULE PLACEMENT Indications: GERD Testing off meds - , Pepcid (famotidine) 20 mg , once daily The SCJ was visualized and verified during endoscopy. A HUERTA pH capsule was attached to the esophagus per protocol by Britt Cross MD. Attachement was confirmed by a 2nd endoscopic view. The patient was taken to the recovery area to be monitored until awake. See sedation record. Patient Education: Instructions regarding the HUERTA pH monitor were reviewed with the patient prior to their endoscopy. The patient was verbally instructed to record events and symptoms on the dairy provided. Written instructions are included with the patient diary along with emergency telephone numbers. The patient was instructed not to undergo any MRI studies within 30 days of the procedure to allow the capsule to detach and pass through the body. Patient will return huerta reciever and patient diary in 48 hours. .Marisabel Lynn LPN documented in this encounterOhiohealth O'[facility]11-10-2022 Nurse Note* Raegan Sood RN - 12/25/2021 10:01 AM EST AMBULATORY PATIENT EDUCATION NOTE TOPIC: GI PROCEDURES: Endoscopic Retrograde CholangioPancreatography(ERCP) with or without biopsy,stenting,dilation and/or treatment READINESS TO LEARN INSTRUCTION PROVIDED TO: Patient and family member COGNITIVE ABILITY: Alert and oriented PTED MOTIVATION TO LEARN: Interested FAMILY SUPPORT: High - Very involved in pt care IPATIENT LEARNS BEST BY: Individual Instruction Written Instruction - Hand-outs Verbal Instruction FACTORS AFFECTING LEARNING: None PHYSICAL LIMITATIONS AFFECTING LEARNING: None LEARNING RESPONSE METHOD OF INSTRUCTION: Individual instruction PATIENT / FAMILY RESPONSE: Verbalizes understanding of: WORSENING CONDITION- Signs and symptoms of aworsening condition that warrant a call to the physician FOLLOW-UP PLAN: Patient instructed to call with any further issues SUPPLEMENTAL MATERIAL: Procedure Discharge Instructions REFERRAL (RECOMMENDATION): None * Kina Ramos RN - 12/25/2021 8:34 AM EST PRE OP LEARNING ASSESSMENT PROCEDURE/SURGERY: GI PROCEDURES: EGD READINESS TO LEARN COGNITIVE ABILITY: Alert and oriented MOTIVATION TO LEARN: Interested FAMILY SUPPORT: None - Unavailable/disinterested PATIENT LEARNS BEST BY: Individual Instruction FACTORS AFFECTING LEARNING: None PHYSICAL LIMITATIONS AFFECTING LEARNING: None Electronically Signed By: Kina Ramos RN In Department: GASTROENTEROLOGY documented in this encounterOhiohealth O'[facility]11-10-2022 History of Present illness Narrative* Mateusz Kraft Research Coordinator - 12/25/2021 9:45 AM ESTSummary: [id number] Study Title: CASE 3207 Genetic and Environmental Determinants of Wiseman's Esophagus and EsophagealAdenocarcinoma IRB# [id number] PI: Britt Cross M.D. Date of Consent: 12/25/2021 Consent obtained by: Giselle Ford MD A copy of the consent form was given to the consenting republican and ample time was provided for review. Extensive overview of the study was presented to the individuals above. Potential risks/benefits were reviewed. Alternatives (non-participation) were explained. All questions were answered and understanding was verbalized. The patient wished to proceed. A signed and dated copy of the informed consent was provided to the consenting republican. Mateusz Kraft Research Coordinator documented in this encounterOhiohealth O'Blen[facility]10-05-2022 Miscellaneous Notes* Telephone Encounter - Li Kimball RN - 11/19/2021 10:57 AM EDT I called the patient and left a message for the patient to call [phone], option [phone] to schedule the pH Impedence testing. Call back number provided for additional questions or concerns. Li Kimball RN documented in this encounterOhiohealth O'Bleness [facility]10-03-2022 History of Present illness Narrative* Deacon Kat MD - 11/17/2021 3:40 PM EDT This is a virtual visit using HIPAA compliant video platform. It required patient-provider interaction for the medical decision making as documented below. Assessment BMI Established Visit Patient seen in follow up for GERD Surgery: Laparoscopic gastric Sleeve Date of Surgery: 09/03/2020 Diagnostic Laparoscopy 03/20/2021 Heartburn symptoms still bothersome, no vomiting, PPI partly helping. No brash water. Multivitamins and supplements: Taking all recommended vitamin/minerals including daily multivitamincomplete, VIt D3 3,000 IU, Vit B12 500 mcg, Iron 45-60 mg and calcium citrate 1189-5902 mg/day PHYSICAL EXAMINATION General appearance: Well appearing, alert, in no acute distress, well-hydrated, well nourished. Impression: Status post laparoscopic bariatric surgery. Heartburn persists. Ph testing showed weak acid ON meds, negative symptoms correlation, UGI nl, manometry normal. Plan: EGD with Huerta ordered - OFF meds - to better see if surgery could help control reflux. Surgical option would be gastrojejunostomy. RTC after above test. I spent a total of 18 minutes on the date of the service which included [id number] patient care, completing clinical documentation, obtaining and/or reviewing separately obtained history, counseling and educating the patient/family/caregiver, and ordering medications, tests, or procedures. Deacon Kat MD documented in this encounterOhiohealth O'Bleness Hospital10-03-2022 Miscellaneous Notes* Telephone Encounter - Grecia Velasquez [facility] - 11/17/2021 11:21 AM EDT Pharmacy fax requesting refills as follows: Patient scheduled for follow up visit Dec 24 Requested Prescriptions Pending Prescriptions Disp Refills famotidine (PEPCID) 40 mg tablet 90 tablet 1 Sig: Take 1 tablet by mouth once daily. Please review and advise. Grecia Velasquez [facility] documented in this encounterOhiohealth O'Bleness Hospital09-06-2022 Miscellaneous Notes* Telephone Encounter - Cornel Conrad - 10/21/2021 11:14 AM EDT Do not schedule on 10/[address] Yousif. Cornel Conrad * Telephone Encounter - Cornel Conrad - 10/21/2021 10:10 AM EDT Called patient to reschedule 10/[address] Yousif will be out of the office in the afternoon that day. Per Dr. Yousif, patient can be rescheduled at [facility] on 10/21 between 4:15-5:30 PM or at [facility] on 10/24 from 8 AM - 12 PM. Do not double book slots. Cornel Conrad documented in this encounterOhiohealth O'Bleness Hospital09-06-2022 Miscellaneous Notes* Telephone Encounter - Slime Crews - 10/21/2021 8:25 AM EDT Called patient to reschedule 10/[address] Yousif will be out of the office in the afternoon that day. Per Dr. Yousif, patient can be rescheduled at [facility] on 10/21 between 4:15-5:30 PM or on 10/22 in [place] between 4-6 PM. Do not double book slots. documented in this [facility]08-25-2022 Instructions* Patient Instructions* Sabina Joy APRN.BETH - 10/09/2021 3:56 PM EDT Images from the original note were not included. Mutually Agreed Upon Goals Eating Plan: The [employer] Pal BRE - Log intake 7 days per week. Replace skipped meals with a protein supplement. Bariatric Plate Method Activity: Walking as tolerated. Chair exercises Sleep: No electronic for 30 minutes prior to sleep 2 nights per week. Practice Sleep Hygiene. CPAP nightly Stress: BRE for meditation - Mindful Moments by [facility]. Insight Timer [email or web address]-[email or web address] ps#our-picks Steps to Follow Bariatric Plate Total Volume of meals: 1 cup max ( every stomach is varied in size so stop eating when you feel full) o Protein: Strive for 20 grams per meal to reach 60-80 grams of protein per day o Vegetables/Low sugar fruits should be second on the plate o Starches should be eaten last (making sure you have had enough protein and vegetables first) - Consider starches to be only a few tablespoons because you will have fullness from protein and vegetables. Fluids should be from all meals by 15 minutes before meals and at least 30-45 minutes after meals. o Strive for 64 oz.sugar free beverages daily to stay hydrated. STAY HYDRATED: Make water your first choice, strive for at least 64 oz. Daily. You may also try beverages from this list: Hint Water, SmartWater, Vitamin Water Zero, Crystal Light, Propel, True, Unsweetened or Diet Tea, Powerade Zero, Gatorade Zero, Flavored Price or Fruit Infused Price. Make your own fruit infused price >> lemon or nightmute with oranges, blackberries, strawberries and fresh mint, sliced cucumbers with fresh trace and mint are a few refreshing flavors! *You may try a sugar substitute such as: Stevia, Truvia or Splenda to replace white or brown sugar. Sleep Hygiene and Good Sleep Habits Establish a regular routine that includes going to bed and getting up at the same time every day, even on weekends. Maintaining a consistent sleep-wake cycle is the paula to better health overall. Get an adequate amount of sleep every night. Determine the amount of sleep you need by keeping track of how long you sleep without using an alarm clock for a week. Maintain this personal sleep requirement. Go to bed when you are sleepy. If you have difficulty falling asleep or wake up shortly after goingto sleep, leave the bedroom and read quietly or do some other relaxing activity. Avoid bright lights as this can cue your wake cycle. Develop sleep rituals before going to bed. Do the same things in the same order before going to bedto cue your body to slow down and relax. Avoid stress and worries at bedtime. Address tomorrow's activities, concerns, or distractions earlier in the day. Certain activities, such as listening to soft music, reading, or taking a warm bath, can help you wind down. Use your bed for sleeping and sex only. Often, doing other activities in bed like watching TV, paying bills, or working only serve to initiate worries and concerns. Let your mind associate the bed with sleeping, relaxing, and pleasure. Avoid heavy meals late in the evening; similarly, avoid going to bed hungry. A light snack, especially dairy foods, can help you sleep. Reduce your intake of caffeine and nicotine 4-6 hours before going to sleep. Stimulants interfere with your ability to fall asleep and progress into deep sleep. 200mg caffeine (a large Starbucks coffee) taken at 8 AM will impair the sleep architecture that night. Avoid alcohol 4-6 hours before bedtime. As a depressant that slows brain activity, alcohol may initially make you tired, but you will end up having fragmented sleep. In addition, being tired intensifies the effects of alcohol. Alcohol also aggravates snoring and sleep apnea particularly in men. Exercise regularly. Regular exercise, even for 20 minutes, 3 times a week, promotes deep sleep. Don't nap for more than 30 minutes or after 3 PM. Avoiding naps all together will ensure that you are tired at night. Longer naps disrupt the body's ability to stay asleep. Maintain a dark, quiet room to sleep in at a temperature with which you are comfortable. Use sleeping aids conservatively, and avoid using them for more than one or two nights per month. Avoid sleeping pills altogether if you have obstructive sleep apnea because it can be a deadly combination. Required Vitamin and Mineral Supplements after Weight Loss Surgery (Gastric Bypass or Gastric Sleeve Surgery) Multi-vitamin with minerals: with 15 mg Zinc and 1-2 mg of copper Vitamin B complex with 75-100 mg of Vitamin B1 (also known as thiamine) Vitamin B 12: 500 mcg Iron: 45-60 mg total every day (this includes the amount in the multivitamin) - DO NOT TAKE WITH CALCIUM. Take with food. Calcium Citrate with Vitamin D 6372-7836 mg calcium - DO NOT TAKE WITH IRON OR MULTIVITAMIN Vitamin D3 - take 3,000 international unit(s) per day from all sources documented in this encounterOhiohealth O'[facility]len[facility]08-25-2022 History of Present illness Narrative* Sabina Joy APRN.CNP - 10/09/2021 3:30 PM EDT BMI OM PostOp Clinic Note October 09, 2021 Virtual Visit (Audio/Visual) I have discussed the nature of this visit with the patient which will occur via [employer] (Phone, Virtual Visit) and she agrees to proceed with this interaction . Index Surgery Date of Surgery: 09/03/2020 Surgeon: Deacon Kat MD Surgical Procedure: LAPAROSCOPIC LONGITUDINAL GASTRECTOMY, GASTRIC RESTRICTIVE PROCEDURE Pre-surgical weight: 108.9 kg (240 lb) Override Index Surgery Information? No Other Bariatric Surgeries Date of Surgery Surgeon Procedure 10/13/2019 Deacon Kat MD EGD WITH BIOPSY 04/16/2020 Deacon Peña MD LAPAROSCOPY WITH BIOPSY 03/20/2021 Deacon Kat MD LAPAROSCOPY DIAGNOSTIC Visit: 13 months Today's Visit: There were no vitals taken for this visit. BMI 31.96 kg/(m^2) Last Visit: Wt: 90.7 kg (200 lb) BMI: 32.28 kg/(m^2) Total weight loss: 42 lbs [place] weight: 70.3 kg (154 lb 14.5 oz) Excess weight: 38.6 kg (85 lb 1.5 oz) % of excess body weight lost: 108.9 kg (240 lb) (282.05% of excess weight loss) COMPLICATIONS SINCE LAST VISIT?: Gastroesophageal reflux disease INTERVAL HISTORY Here for postop visit, 1 year. She has had hip and knee injuries. She has been unable to exercise due to pain. She did get to a kita weight of 187 12/2020 but has had weight increase with decrease exercise and inability to meet protein requirements. DIET INTAKE: eats 1 meals/day & 3 snacks/day, protein intake: 30 grams, liquid intake: less than 64 oz, and not tolerating Phase 4 diet with harder to chew food . DAILY SUPPLEMENTS: Yes Calcium: included in multivitamin Multivitamin & Minerals: 2 per day Iron Supplement: included in multi-vitamin Vitamin B12: sublingual gtts Vitamin D3: included in multi-vitamin Other: Magnesium EXERCISE: Limited due to hip and knee pain SLEEP: RICHAR Yes , CPAP Yes Current Outpatient Medications Medication Sig escitalopram oxalate (LEXAPRO) 5 mg tablet Take 1 tablet by mouth once daily. Take with 10 mg tablet. mirtazapine (REMERON) 15 mg tablet Take 1 tablet by mouth daily at bedtime. hydrOXYzine HCl (ATARAX) 25 mg tablet Take 1 tablet by mouth twice daily as needed for anxiety (or insomnia). escitalopram oxalate (LEXAPRO) 10 mg tablet Take 1 tablet by mouth once daily. naproxen (NAPROSYN) 500 mg tablet Take 1 tablet by mouth twice daily as needed for pain. for pain. Take with food. methocarbamol (ROBAXIN) 500 mg tablet Take 1-2 tablets by mouth three times daily as needed (for muscle spasms or pain). fluticasone propion/salmeterol (ADVAIR HFA INHALATION) Inhale as instructed. ALBUTEROL INHALATION Inhale as instructed. levothyroxine (SYNTHROID) 100 mcg tablet Take 1 tablet by mouth once daily. famotidine (PEPCID) 40 mg tablet Take 1 tablet by mouth once daily. topiramate (TOPAMAX) 100 mg tablet Take 100 mg by mouth twice daily. magnesium gluconate (MAGONATE) 27 mg (500 mg) tab Take 500 mg by mouth once daily. liothyronine (CYTOMEL) 5 mcg tablet Take 5 mcg by mouth once daily. No current facility-administered medications for this visit. REVIEW OF SYSTEMS: Denies abdominal pain, constipation, diarrhea, melena, hematochezia, Denies paresthesias, gait abnormality, fatigue, weakness, lower extremity edema, Denies taking NSAIDs, and hypoglycemia occasionally OBESITY MEDICINE COMORBIDITIES: Obstructive Sleep Apnea Sleep Apnea with use of CPAP, Bi-PAP, or similar technology PHYSICAL EXAM: Ht 167.6 cm (5' 6 ) Wt 89.8 kg (198 lb) LMP 08/19/2020 BMI 31.96 kg/m Deferred, no abdominal issues Assessment 31 year old female with Class I obesity 1 year. s/p LAPAROSCOPIC LONGITUDINAL GASTRECTOMY, GASTRIC RESTRICTIVE PROCEDURE, responding poor. We will plan for EGD, Nutrition follow up, Labs and possible revision to RYGB with Dr. Kat. Patient Active Problem List Ventral hernia without obstruction or gangrene Abdominal pain S/P laparoscopic sleeve gastrectomy Asthma Abnormal finding on imaging of liver Mild protein-calorie malnutrition (HCC) Intractable upper abdominal pain Right upper quadrant abdominal pain ARSALAN (generalized anxiety disorder) Depression, controlled Situational stress Panic disorder without agoraphobia Trauma and stressor-related disorder Duodenogastric reflux of bile Back pain Malaise and fatigue Chronic bilateral low back pain without sciatica Vertigo GERD (gastroesophageal reflux disease) Hypothyroid RICHAR on CPAP PCOS (polycystic ovarian syndrome) Anemia Nausea Regurgitation of food Heartburn Preoperative examination Class 1 obesity without serious comorbidity with body mass index (BMI) of 33.0 to 33.9 in adult Benign essential HTN Gastric ulcer Resolved Hospital Problems No resolved problems to display. Plan n/a DISPOSITION: Return 3 month to EST/Standard office visit EDUCATION: Encouraged to continue with healthy lifestyle changes and incorporate cardiovascular andresistance training, Discussed weight loss expectations after bariatric and metabolic surgery, Advised PT to avoid NSAIDs, smoking tobacco given increased risk of marginal ulcers, or Discussed importance of protein intake as per the RDN note REFERRALS: BMI Nutrition -EGD LABS: Today: See Epic Orders I spent a total of 30 minutes on the date of the service which included preparing to see the patient, [id number] patient care, completing clinical documentation, obtaining and/or reviewing separately obtained history, performing a medically appropriate examination, counseling and educating the pat ient/family/caregiver, ordering medications, tests, or procedures, independently interpreting results (not separately reported), and communicating results to the patient/family/caregiver. Medical Decision Making: Level: 1 - N/A Sabina Joy APRN.CNP documented in this encounterOhiohealth O'[facility]len[facility]07-16-2022 Hospital Discharge instructions* Discharge Instructions* Pablo Atwood DO - 08/30/2021 4:11 AM EDT Please take all medications as prescribed and follow-up with your oral surgeon on Wednesday as scheduled. * Attachments The following attachments cannot be sent through Care Everywhere. * Tooth: Abscessed (Burmese) documented in this encounterBON Calester Phone: [phone] 334-886207-15-2022 Miscellaneous Notes* Telephone Encounter - Justine Shabazz PA-C - 08/29/2021 2:55 PM EDT Pharmacy generated request, refill not appropriate. Justine Shabazz PA-C documented in this encounterOhiohealth O'Bleness [facility]07-15-2022 Instructions* Patient Instructions* Justine Shabazz PA-C - 08/29/2021 2:34 PM EDT Advance activity per PT guidance. Pool per tolerance - NO breast stroke, scissor kick, treading water, flip turns and pushing off thewall Begin/ advance low impact cardio: Upright stationary bike - stay seated and avoid clipping in/ strapping feet to pedals on bike Elliptical avoid inclines/ declines Gentle freestyle or backstroke No impact and explosive/ ballistic activities (running, jumping, forced extremes of motion) No deep (> 90 degrees) squatting Lifting restriction max 30 pounds rarely Upper body lifting - as long feet are not in contact with ground. Do no lift and carry free weights documented in this encounterOhiohealth O'Bleness [facility]07-15-2022 History of Present illness Narrative* Justine Shabazz PA-C - 08/29/2021 2:16 PM EDT POST OP DISTANCE HEALTH VIRTUAL VISIT DOCUMENTATION NOTE This virtual visit was performed via video enabled technology, and the patient provided consent to be evaluated and managed using this virtual visit and video enabled technology. Distance Health Platform: Hobzy Virtual Visit People present : Justine Shabazz PA-C and Patient Time Spent for video encounter, record review and documentation: 6 minutes CHIEF COMPLAINT (CC): Post op right hip HISTORY OF PRESENT ILLNESS (HPI): Abbey presents 6 weeks s/p right hip arthroscopy No systemic complaints. She had to miss physical therapy today secondary to wisdom teeth issues .She is scheduled to see oral surgeon later today. She denies hip pain unless she pivots and her hip moves into external rotation. Reports physical therapy is going well she is working on David and Jeremias stretching, working with [employer]'s. EXAMINATION: There is no height or weight on file to calculate BMI. This examination was performed via video enabled technology. Patient does not appear to be in any acute distress Patient is alert and oriented with normal affect Right Hip Examination Inspection: Incisions healed Range of motion reports symmetric hip flexion and ER, discomfort with IR Palpation (patient localized these landmarks with my instruction via the video enabled technology): No pain to palpation of the hip including the greater trochanter, anterior hip, ischial tuberosity or SI joint Special testing : JEREMIAS: Decreased motion, end range tightness Neurologic: Intact sensation testing of the lower extremities with no dysesthesia Impression: 6 weeks s/p right hip arthroscopy Plan: Discussed Advance PT and activities per protocol. Precautions reinforced. No impact activities Follow-up: [address] Nica Shabazz, MS, PAAlbertC documented in this encounterOhiohealth O'[facility]len[facility]07-14-2022 Instructions* Patient Instructions* Xiomara Martinez, DADA - 08/28/2021 8:28 AM EDT 1. Protein: Continue to strive for 75-93 g protein per day. Eat protein first at all meals. Lean meats, low fat/part skim dairy products, peanut butter, eggs, beans. 2. Eat 4 small meals per day or 3 meals and 1-2 small snacks for additional protein 3. Fluids: 64 oz per day, minimum. No carbonation, no caffeine, no calories, no alcohol. 4. Vitamin/minerals: Continue daily Bariatric Fusion One a Day multivitamin capsule PLUS 6380-5377 mg calcium citrate 5. Exercise: strive for daily activity - combine strength training and cardio for best workouts. Goal is 30 minutes 5-6x per week. 6. Practice these: Eat in this order protein first, vegetable and fruit second and whole grain carbohydrates last. * Separate eating and drinking by 30 minutes * Chew your food 20-30x per bite * Meals should last 30 minutes. Nutrition Monitoring & Evaluation: BMI < 30 AND reduction in reflux symptoms Criteria: patient update and weight check Need for Follow up: 6 months, or sooner if needed documented in this encounterOhiohealth O'[facility]07-14-2022 History of Present illness Narrative* Xiomara Martinez RD - 08/28/2021 7:54 AM EDT [facility] Nutrition Therapy: Virtual Consult Re-assessment This visit was performed virtually due to the COVID-19 epidemic as an effort to protect patients and minimize exposure. Consent from patient received to conduct visit virtually. This Team Access Model visit is a virtual encounter. It required patient-provider interaction for the medical decision making as documented below. PROGRESS: Nutrition Intervention (date of last encounter 01/23/21): 1. Protein: Continue to strive for 75-93 g protein per day. Eat protein first at all meals. Lean meats, low fat/part skim dairy products, peanut butter, eggs, beans. 2. Eat 4 small meals per day or 3 meals and 1-2 small snacks for additional protein 3. Fluids: 64 oz per day, minimum. No carbonation, no caffeine, no calories, no alcohol. 4. Vitamin/minerals: Bariatric Fusion MVI complete soft chew 2x per day, biotin, collagen, liquid zinc, calcium citrate (3x per day) 5. Exercise: strive for daily activity - combine strength training and cardio for best workouts. Goal is 30 minutes 5-6x per week. 6. Practice these: Eat in this order protein first, vegetable and fruit second and whole grain carbohydrates last. * Separate eating and drinking by 30 minutes * Chew your food 20-30x per bite * Meals should last 30 minutes CHANGES IN TREATMENT: Patient met goal(s): Yes Actions to implement interventions: Breakfast: Rx protein bar Morning Snack: none Lunch: protein shake (Premier) Afternoon Snack: SF jello Dinner: Factor Meal (protein and vegetable) Evening Snack: SF popsicles Fluids: water (64 oz), gatorade zero, Body [place] light Exercise: limited to PT due to hip surgery, childcare Vitamins/Minerals: Bariatric Fusion(non-iron) One a Day MVI, Calcium citrate (650mg) CLINICAL IMPRESSIONS: good ANTHROPOMETRICS Height per patient: 66 Weight per patient: 200# Most recent height and weight per EPIC Height: Last 1 Encounter Ht Readings: Date: Ht: 08/28/2021 167.6 cm (5' 6 ) Weight: Last 1 Encounter Wt Readings: Date: Wt: 08/28/2021 0 kg () Body mass index is 32.28 kg/m . RMR can't be calculated - Weight unrecorded in last 120 days. Malnutrition Screening Significant unintentional weight loss? No Eating less than 75% of usual intake for more than 2 weeks? No Potential Signs of Inflammation: no identifiable sources Nutritional status: RECOMMENDED MALNUTRITION DIAGNOSIS: NO MALNUTRITION IDENTIFIED Educational materials provided: None this visit Patient presents for follow up nutrition Virtual Consult 1 year post op LSG - now reports increased/constant reflux and is interested in pursuing a Revision surgery. Net weight loss 58 pounds ( 258 lbs initial) 22% TWL Pre-surgery weight: 240 pounds Kita weight: 193 pounds prior to hip surgery 1 pounds weight gain since last assessment 7 months ago (199 lbs) Diet recall indicates consistent meal pattern with no missed meals. Meals are typically small and low-calorie, which may be limiting desired weight. Now following Weight Watchers. Following Phase 5 diet. 800-1000 calories/day - falling below recommendations 60-70 gm protein intake/day - slightly insufficient 64 oz fluid intake/day - meeting needs Taking all vitamin/minerals. Labs not yet available. Resting Metabolic Rate: 1635 Energy needs for weight loss 1530-2174 (15-20 carina/kg current weight) Protein needs: 75-93 grams protein per day (1.2 - 1.5 g/kg IBW kg) Exercise - not yet cleared for exercise by PT Nutrition Diagnosis: Altered Gastrointestinal Tract Function, related to, S/P bariatric surgery, asevidenced by patient update and PSH. Nutrition Intervention 08/28/2021: Modify type and amount of food consumed for meals and snacks: 1. Protein: Continue to strive for 75-93 g protein per day. Eat protein first at all meals. Lean meats, low fat/part skim dairy products, peanut butter, eggs, beans. 2. Eat 4 small meals per day or 3 meals and 1-2 small snacks for additional protein 3. Fluids: 64 oz per day, minimum. No carbonation, no caffeine, no calories, no alcohol. 4. Vitamin/minerals: Continue daily Bariatric Fusion One a Day multivitamin capsule PLUS 9589-7634 mg calcium citrate 5. Exercise: strive for daily activity - combine strength training and cardio for best workouts. Goal is 30 minutes 5-6x per week. 6. Practice these: Eat in this order protein first, vegetable and fruit second and whole grain carbohydrates last. * Separate eating and drinking by 30 minutes * Chew your food 20-30x per bite * Meals should last 30 minutes. Nutrition Monitoring & Evaluation: BMI < 30 AND reduction in reflux symptoms Criteria: patient update and weight check Need for Follow up: 6 months, or sooner if needed MNT Billing Type: Re-assess/15 min 2 units Signed by: Xiomara Martinez RD documented in this encounterOhiohealth O'[facility]07-08-2022 Evaluation note* Encounter Date Diagnosis Assessment Notes Treatment Notes Treatment Clinical Notes Aug, PTSD (post-traumatic stress disorder) (ICD-10 - F43.10) [place] [employer] Other [id number] Miscellaneous Notes* Telephone Encounter - Grecia Wallace - 08/22/2021 10:40 AM EDT Pharmacy fax requesting refills as follows: patient has a follow up visit 09/24/21 Pending Prescriptions Disp Refills OMEPRAZOLE 40 MG CAPSULE,DELAYED RELEASE 60 capsule 0 Sig: Take 1 capsule by mouth twice daily. ELIJAH: No Please review and advise. Grecia Wallace documented in this encounterOhiohealth O'[facility]07-03-2022 Evaluation note* Encounter Date Diagnosis Assessment Notes Treatment Notes Treatment Clinical Notes Aug, Shakiness (ICD-10 - R25.1) Aug, RUQ pain (ICD-10 - R10.11) Sent over US of abdomen. Results will be able to be shared with gastric bypass physician Aug, Reactive hypoglycemia (ICD-10 - E16.1) Contact gastric bypass surgeon for follow up as discuss and take blood glucose if symptoms occur. Keep journal of food intake, test results and symptoms Aug, Allergic contact dermatitis, unspecified trigger (ICD-10 - L23.9) Unsure of what is causing reaction; it is often the case with rashes and reactions. OTC Zyrtec may help with symptoms. Recommend using unscented sensitive skin products for a few weeks as system will be more sensitive than normal. [employer] Other [phone] Miscellaneous Notes* Telephone Encounter - Justine Shabazz PA-C - 08/14/2021 2:51 PM EDT Pharmacy generated request, refill not appropriate. Justine Shabazz PA-C documented in this encounterOhiohealth O'Blen[facility]06-17-2022 Instructions* Patient Instructions* Justine Shabazz PA-C - 08/01/2021 11:15 AM EDT Wound Care You can get your incisions wet in the shower, by allowing the water to run over them. Avoid scrubbing incisions. Expect stiffness in the morning and soreness at the end of the day. Monitor soreness if increasing daily - sign you are overdoing it. Do not soak or submerge your leg in a hot tub, bath tub or pool until you are at least 4 weeks postop and incisions well healed. Do not apply lotions or ointments to your incisions until you are 3 weeks post op and incisions arewell healed. Medications: Naproxen 500 mg twice daily as needed for pain Over the Counter Tylenol (Acetaminophen) - Max 3000 mg per day as needed for pain Methocarbamol 500 mg as needed for muscle spasms or pain Motion: Hip flex > 90 degrees per tolerance at 2 weeks post op Avoid - hip abduction ( moving hip/ leg away from your midline) past shoulder width, hyperextension(moving leg backward) and letting your feet returns clerk when standing or laying flat- until 3 weeks post op then as tolerated 3 weeks post op no motion restrictions - extremes of motion and quick movements will continue to beuncomfortable It is normal to experience clicks, pops, cracks to varying degrees - as the scar tissue is maturingand you are gaining muscle strength and endurance Activities: Ok to sleep in any comfortable position - either side recommend pillow between your knees It is normal to have morning stiffness and soreness at the end of the day. Monitor soreness if increasing daily - sign you are overdoing it. Physical therapy - not more than twice a week Continue to lay on your stomach for 1 to 2 hours per day to stretch the front of your hip. May do this in 5-10 minute increments. Avoid walking for exercise Upright stationary bike for motion only over the next 3-4 weeks - do not have feet attached to pedals (no strap or clipping in) - can work up to 20 minutes twice a day Pool at 4 weeks post op IF incisions are completely healed: avoid breast stroke, treading water, scissor kick/ motion. Ok to begin gentle freestyle and deep water jog at 5-6 weeks post op Lifting: Nothing greater than a gallon of milk until next office visit Weight Bearing: As tolerated Driving: Once you have good leg control and are able to safely and confidently move from gas to break and slam on brake if necessary to protect yourself and others. Follow-up: 4 weeks documented in this encounterOhiohealth O'Blen[facility]06-17-2022 History of Present illness Narrative* Justine Shabazz PA-C - 08/01/2021 10:55 AM EDT POST OP DISTANCE HEALTH VIRTUAL VISIT DOCUMENTATION NOTE This virtual visit was performed via video enabled technology, and the patient provided consent to be evaluated and managed using this virtual visit and video enabled technology. Distance Health Platform: [employer] Virtual Visit People present : Justine Shabazz PA-C and Patient Time Spent for video encounter, record review and documentation: 15 minutes CHIEF COMPLAINT (CC): Post op right hip HISTORY OF PRESENT ILLNESS (HPI): 3 weeks s/p 1. right hip arthroscopy. 2. Acetabuloplasty CPT 91608 3. Labral repair. CPT 19151 4. Femoroplasty. CPT 21120 5. Capsular Closure DOS: 08/10/21 Denies systemic symptoms or other concerns. Denies calf pain. Reports right hip is doing well. Pain is not an issue Medication completed naproxen and is out of methocarbamol Weight bearing: full with out assistance the past few days Sutures were removed on 07/25 and brace discontinued 07/24 Physical therapy 2 times a week - tolerating well She is inquiring if Dr Yousif will review MRI right knee (uploaded in [employer]). She has been referredto physician in [place] and was recommended to have osteotomy, she is wanting a second opinion. Requested she get a copy of her full length weight bearing films for his review also. EXAMINATION: There is no height or weight on file to calculate BMI. This examination was performed via video enabled technology. Patient does not appear to be in any acute distress Patient is alert and oriented with normal affect Right Hip Examination Inspection: Reports incisions healed. No eschar, or tenderness No obvious calf swelling Range of motion (patient performed these range of motions with my instruction via the video enabledtechnology): Hip flexion 90 degrees, ER 40 Palpation (patient localized these landmarks with my instruction via the video enabled technology): No tenderness with compression bilateral calves Special testing (patient performed these maneuvers on themselves with my instruction via the video enabled technology): Able to raise up on toes and heels Neurologic: Intact sensation testing of the lower extremities with no dysesthesia Impression: 3 weeks s/p right hip scope. No evidence of infection or DVT Plan: Discussed Intra operative and post operative course and expectations discussed. Arthroscopy pictures reviewed. Wound Care You can get your incisions wet in the shower, by allowing the water to run over them. Avoid scrubbing incisions. Expect stiffness in the morning and soreness at the end of the day. Monitor soreness if increasing daily - sign you are overdoing it. Do not soak or submerge your leg in a hot tub, bath tub or pool until you are at least 4 weeks postop and incisions well healed. Do not apply lotions or ointments to your incisions until you are 3 weeks post op and incisions arewell healed. Medications: Naproxen 500 mg twice daily as needed for pain Over the Counter Tylenol (Acetaminophen) - Max 3000 mg per day as needed for pain Methocarbamol 500 mg as needed for muscle spasms or pain Motion: Hip flex > 90 degrees per tolerance at 2 weeks post op Avoid - hip abduction ( moving hip/ leg away from your midline) past shoulder width, hyperextension(moving leg backward) and letting your feet returns clerk when standing or laying flat- until 3 weeks post op then as tolerated 3 weeks post op no motion restrictions - extremes of motion and quick movements will continue to beuncomfortable It is normal to experience clicks, pops, cracks to varying degrees - as the scar tissue is maturingand you are gaining muscle strength and endurance Activities: Ok to sleep in any comfortable position - either side recommend pillow between your knees It is normal to have morning stiffness and soreness at the end of the day. Monitor soreness if increasing daily - sign you are overdoing it. Physical therapy - not more than twice a week Continue to lay on your stomach for 1 to 2 hours per day to stretch the front of your hip. May do this in 5-10 minute increments. Avoid walking for exercise Upright stationary bike for motion only over the next 3-4 weeks - do not have feet attached to pedals (no strap or clipping in) - can work up to 20 minutes twice a day Pool at 4 weeks post op IF incisions are completely healed: avoid breast stroke, treading water, scissor kick/ motion. Ok to begin gentle freestyle and deep water jog at 5-6 weeks post op Lifting: Nothing greater than a gallon of milk until next office visit Weight Bearing: As tolerated Driving: Once you have good leg control and are able to safely and confidently move from gas to break and slam on brake if necessary to protect yourself and others. Follow-up: 4 weeks Justine Shabazz MS, PA-C documented in this encounterOhiohealth O'[facility]05-20-2022 History of Present illness Narrative* Justine Shabazz PA-C - 07/04/2021 10:59 AM EDT AMBULATORY TELEPHONE VISIT Abbey Garcia has consented to this telephone encounter. Persons Present: patient Chief Complaint/Reason: Pre op right hip HPI: 31 y/o female scheduled for right hip arthroscopy with Dr Yousif 07/10/21 at [facility]. Discussion to ensure optimized for surgery Data Reviewed: Procedure: verified - questions answered Consent: in PSYCHIATRIC - not signed Imaging: outside MR an XR in psychiatric with report scanned - views sufficient PACC: completed 06/24/21 Brace fitting: completed Crutches: has a pair and able to use - instructed she can leave in car DOS Medical considerations - laparoscopic sleeve 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 - down 50 lb Anticoagulation medications: no Pharmacy/ scripts: [facility] - advised will be sent 07/09/21 day prior to surgery Post op PT - scheduled locally - updated RX DOS Post op Appts x 3 scheduled - Would prefer 2 w virtual - will check with PCP about stitch removal Assessment: S73.191D Tear of right acetabular labrum, subsequent encounter (primary encounter diagnosis) Plan: Right hip scope 07/10/[address] Yousif Post op RXs to [facility] 07/09/21 PT 07/11/21 Post op follow up 07/30/21 - ideally virtual Total Time Spent: 8 minutes Justine Shabazz PA-C documented in this encounterOhiohealth O'[facility]05-09-2022 History of Present illness Narrative* Justine Shabazz PA-C - 06/23/2021 4:02 PM EDT Surgery scheduling/order review encounter: Jace Duarte, TAMY 06/23/21 patient update encounter for scheduling right hip scope reviewed: Images reviewed: XR No additional views necessary MRI labral tear Consent initiated Orders reviewed and signed. Chart routed to surgery schedulers Justine Shabazz PA-C * Jace Duarte, AT - 06/18/2021 3:12 PM EDT Spoke with patient in the office regarding scheduling surgery for their right hip with Dr. Yousif Procedure: Right hip arthroscopy - labral repair Date: 07-10-21 XR: correct views Yes (if no updated XR must be done in radiology at the [facility] to ensure correct views.) Brace fitting: Yes - ( hip brace fit with [facility] Rep at [facility]) Pre op PT visit required for HIP SCOPES and GLUT MED repairs Crutches/ Walker: Need Training: Yes Need Crutches: Yes PACC: [facility] ([facility] or outside) Medications: escitalopram oxalate (LEXAPRO) 10 mg tablet Take 1 tablet by mouth once daily. levothyroxine (SYNTHROID) 100 mcg tablet Take 1 tablet by mouth once daily. famotidine (PEPCID) 40 mg tablet Take 1 tablet by mouth once daily. mirtazapine (REMERON) 30 mg tablet Take 1 tablet by mouth daily at bedtime. oxyCODONE IR (ROXICODONE) 5 mg immediate release tablet Take 1 tablet by mouth every 6 hours as needed for pain for up to 5 doses. topiramate (TOPAMAX) 100 mg tablet Take 100 mg by mouth twice daily. omeprazole (PRILOSEC) 40 mg capsule Take 1 capsule by mouth twice daily. sucralfate (CARAFATE) 1 gram tablet Take 1 tablet by mouth four times daily. magnesium gluconate (MAGONATE) 27 mg (500 mg) tab Take 500 mg by mouth once daily. liothyronine (CYTOMEL) 5 mcg tablet Take 5 mcg by mouth once daily. Allergies: ALLERGIES Allergen Reactions Adhesive Tape-Silic* Intolerance Sensitive to certain adhesive tapes. Redness and itchy. Codeine GI Upset Anesthesia S/I-40 (* Other: See Comments Nausea Current medical concerns: Any history of the following: Do you have breathing problems, asthma, sleep apnea or other lung issues No. Do you have decreased kidney function or other kidney disease No. Do you have cirrhosis of the liver or other liver disease No. Do you have any heart issues - prior heart attack, stents/surgery, valve issues, implanted cardiac device (ICD, defibrillator, pacemaker) No. Are you a diabetic No. Do you take insulin or other injections for diabetes Are you taking blood thinning medications (coumadin, Xarelto, Plavix, Eliquis etc) other than aspirin No. Have you ever a blood clot, DVT or PE (lungs, legs, arms) if yes when and where No. Do you have a blood clotting disorder or FACTOR deficiency No. Do you take medication for your Thyroid No. Have you had a skin infection (staph, MRSA) No. Have you had a stroke/ seizure or unexplained loss of consciousness No. Do you have a neurological condition like Parkinson's or Multiple Sclerosis (MS) No. Are you under the care of Pain Management, have a opioid contract or currently taking prescription pain medication No. Do you have other implanted devices ( pain pump, deep brain stimulator or spinal cord stimulator) No. Has a blood relative had a life threatening reaction to anesthesia (NOT nausea or slow wake up) No. Pre op instructions sent via [employer]. DONAVAN Douglas documented in this encounterOhiohealth O'[facility]05-04-2022 History of Present illness Narrative* Kuldip Yousif MD - 06/18/2021 11:00 AM EDT x * Kuldip Yousif MD - 06/18/2021 10:23 AM EDT Images from the original note were not included. DEPARTMENT OF ORTHOPAEDICS Consultation as a request of Shanna June NP [address] [facility] [address] Chief Complaint: Right hip pain HISTORY OF PRESENT ILLNESS: This is a pleasant 31 year old female, who presents today with a chief complaint of Right hip pain. Injury/ Trauma: Denies PAIN EVALUATION 06/18/2021 0954 Pain Level: 6 Pain Location: Hip-Right Description: Aching Duration Amount of Time: 6 Duration Units: Months Frequency: Continuous Intervention/Comfort measure: Medication Pain location: anterior along with posterior Duration of pain/ symptoms: 6 months Frequency: intermittent Intensity: mild to moderate Quality: sharp She Denies nocturnal pain. She denies numbness, tingling, or electric shocks. She reports popping. 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 Arthritis Asthma Class 1 obesity without serious comorbidity with body mass index (BMI) of 33.0 to 33.9 in adult 09/25/2019 Gastric ulcer 2013 GERD (gastroesophageal reflux disease) History of IBS Hypertension Hypothyroid RICHAR on CPAP wears mask every night PCOS (polycystic ovarian syndrome) Ventral hernia without obstruction or gangrene PAST SURGICAL HISTORY Procedure Laterality Date APPENDECTOMY 08/2019 CHOLECYSTECTOMY COLONOSCOPY GEN ANES EGD F TOTAL ABDOMINAL HYSTERECTOMY PAST SURGICAL HISTORY OF Bilateral arthroscopic knee surgery- was catcher in [facility] LINE INSERT/CONSULT 12/24/2020 VAGINAL DELIVERY AFTER DELIVERY Three C-sections Current Outpatient Medications Medication Sig Dispense Refill escitalopram oxalate (LEXAPRO) 10 mg tablet Take 1 tablet by mouth once daily. 30 tablet 3 levothyroxine (SYNTHROID) 100 mcg tablet Take 1 tablet by mouth once daily. 90 tablet 3 famotidine (PEPCID) 40 mg tablet Take 1 tablet by mouth once daily. 90 tablet 1 mirtazapine (REMERON) 30 mg tablet Take 1 tablet by mouth daily at bedtime. 30 tablet 2 topiramate (TOPAMAX) 100 mg tablet Take 100 mg by mouth twice daily. omeprazole (PRILOSEC) 40 mg capsule Take 1 capsule by mouth twice daily. 60 capsule 0 magnesium gluconate (MAGONATE) 27 mg (500 mg) tab Take 500 mg by mouth once daily. liothyronine (CYTOMEL) 5 mcg tablet Take 5 mcg by mouth once daily. oxyCODONE IR (ROXICODONE) 5 mg immediate release tablet Take 1 tablet by mouth every 6 hours as needed for pain for up to 5 doses. 5 tablet 0 sucralfate (CARAFATE) 1 gram tablet Take 1 tablet by mouth four times daily. (Patient not taking: Reported on 03/13/2021 ) 360 tablet 1 No current facility-administered medications for this visit. ALLERGIES Allergen Reactions Adhesive Tape-Silic* Intolerance Sensitive to certain adhesive tapes. Redness and itchy. Codeine GI Upset Anesthesia S/I-40 (* Other: See Comments Nausea FAMILY HISTORY Problem Relation Age of Onset Diabetes Mother Hypertension Mother Obesity Mother Hypertension Father Hypertension Brother Obesity Brother Hypertension Brother Obesity Brother Social History Tobacco Use Smoking status: Never Smoker Smokeless tobacco: Never Used Substance Use Topics Alcohol use: Not Currently Drug use: Never Comment: denies tx for drug/alcohol abuse in the past. 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 There is a cam lesion. X-Rays Reviewed and discussed. OTHER STUDIES: Right MRI dated within 1 year revealed no acute processes, fractures, or dislocations. MRI revealedtear of her anterior superior labrum PHYSICAL EXAM: LMP 08/19/2020 General: Appears stated age, well built, in no apparent distress. Psychiatric: Mood and affect appropriate. Alert and oriented x 3 without evidence of abnormal respiratory effort. Musculoskeletal Exam: Gait normal, Posture: erect and normal. Exam: Right Left Single Leg Trendelenburg Positive Positive Hip flexion 100 100 IR 20 20 ER 70 70 Anterior impingement positive negative Dynamic labral stress positive negative JEREMIAS positive negative Posterior Impingement negative negative DANNA negative negative Strength Right Left Supine HF 5/5 5/5 Upright HF 5/5 5/5 Adduction 5/5 5/5 Abduction 5-/5 5/5 Tenderness with Palpation: Right Left Greater Troch Positive Negative Gluteus Medius Negative Negative Piriformis Negative Negative PROCEDURE: none IMPRESSION: (S73.191A) Acetabular labrum tear, right, initial encounter (primary encounter diagnosis) PLAN: 1. Medication: None. 2. Test(s)/Imaging/Referral(s): None. 3. Intervention: Following a disussion of nonoperative and operative treatment options, the risks and benefits of both, expected outcome and rehabilitation the patient elected for surgical intervention. Arthroscopic labral repair will be scheduled following necessary clearance at the patient's convenience. We will work on getting this set up for the near future as our schedules intersect. She will contact the office if there are any issues. All questions answered. 4. Follow-up: Schedule surgery Scribe Attestation: By signing my name below, I, DONAVAN Douglas, attest that this documentation has been preparedunder the direction and in the presence of Kuldip Yousif M.D. Electronically Signed:DONAVAN Douglas, June 18, 2021 10:23 AM I agree with the Chief Complaint, ROS, and Past Histories independently gathered by the clinical underwriting support manager and the remaining scribed note accurately describes my personal service to the patient. Kuldip Yousif MD documented in this encounterOhiohealth O'[facility]len[facility]04-18-2022 History of Present illness Narrative* Lucie Mora MD - 06/02/2021 12:00 PM EDT Sports Medicine Clinic Note CC: Right knee pain Chief Complaint Patient presents with Right Knee - Follow-up Pt presents for fu on rt knee pn, hx of steroid inj 12/09/20, still has swelling and pn, injection seemed to help some for a couple weeks, did PT at home but seemed to get worse, got repeat xrays from ortho surgeon, knee will swell up with any kind of activity and could not progress in PT, no painkillers b/c tylenol and ibu dont help, also worried about torn labrum in rt hip and not sure how it will affect knee History of Present Illness Abbey Garcia is a 31 y.o. female, who presents to clinic for repeat evaluation of the right knee. Patient's symptoms began years ago. She reports that she has a long history of issues with this knee and has had a total of 5 prior surgeries. All have been arthroscopic and have included debridements and what she describes as both a alteral and medial release for patellar tracking. At our last visit, we discussed that she had distal and lateral patellar chondral damage that may be amenable to TTO atsome point. She elected to proceed with a steroid injection then (Nov 2020) and further PT. She notes some improvement in her pain since then although it has begun to hurt a good bit again. Unfortunately she is also having a lot of problems with the right hip (worse than the knee) and things she might need a hip surgery. The pain is currently mostly anterior in the knee, but she also noted medialand lateral knee pain. The pain is moderate, severe. The patient describes the pain as aching, sharp / stabbing and throbbing. There is not night pain. There is not numbness/tingling. The problem is worsened by stairs and prolonged standing and walking and impoved by rest. Previous treatment has included surgery as above, PT after her most recent surgery (July 2020), tylenol, prior NSAIDs (can nolonger take due to ulcer issues, and prior injections (visco 10/2020). Past Medical History: Diagnosis Date Hypothyroidism PCOS (polycystic ovarian syndrome) Past Surgical History: Procedure Laterality Date HYSTERECTOMY 11/12/2020 GASTRIC BYPASS 09/03/2020 KNEE ARTHROSCOPY Right 08/07/2020 APPENDECTOMY SECTION CHOLECYSTECTOMY Allergies Allergen Reactions Codeine And Related Outpatient Medications Prior to Visit Medication Sig Dispense Refill DULoxetine (Cymbalta) [address] Particles capsule DR 2 capsules hydroCODone-acetaminophen 5-325 MG tablet Take 1 tablet by mouth every 6 hours as needed for up to 4 days. 12 tablet 0 labetalol 100 MG Tab tablet Take 100 mg by mouth 2 times daily. levothyroxine 100 MCG Tab tablet Take 100 mcg by mouth daily. Liothyronine Sodium (CYTOMEL PO) Take by mouth. metformin 500 MG Tab tablet Take 1,000 mg by mouth 2 times daily with meals. ondansetron 4 MG Tab Dispersible tablet Take 1 tablet by mouth every 8 hours as needed for Nausea for up to [address] on tongue 12 tablet 0 ondansetron 4 MG Tab Dispersible tablet Take 1 tablet by mouth every [address]. [address] on tongue (Patient not taking: Reported on 12/09/2020) 15 tablet 0 topiramate 25 MG tablet Take 25 mg by mouth 2 times daily. topiramate 50 MG tablet No facility-administered medications prior to visit. Social History Socioeconomic History Marital status: Spouse name: Not on file Number of children: Not on file Years of education: Not on file Highest education level: Not on file Occupational History Not on file Tobacco Use Smoking status: Never Smoker Smokeless tobacco: Never Used Substance and Sexual Activity Alcohol use: No Drug use: No Sexual activity: Not on file Other Topics Concern Not on file Social History Narrative Not on file Social Determinants of Health Financial Resource Strain: Not on file Food Insecurity: Not on file Transportation Needs: Not on file Physical Activity: Not on file Stress: Not on file Social Connections: Not on file Intimate Partner Violence: Not on file Housing Stability: Not on file History reviewed. No pertinent family history. I have reviewed the above past medical history, allergies, medications, social history and family history. Review of Symptoms: Pertinent items are noted in the HPI. General ROS: negative for - chills, fever or night sweats Respiratory ROS: no cough, shortness of breath, or wheezing Cardiovascular ROS: no chest pain or dyspnea on exertion Neurological ROS: no TIA or stroke symptoms Skin/ integumentary ROS: no generalized rashes, no generalized erythema, no open lesions Physical Exam Smoking Status Never Smoker General appearance: Alert and cooperative, appears stated age Constitutional: Well-developed, well-nourished, and in no distress. Head: Normocephalic and atraumatic. Pulmonary/Chest: Effort normal. Neurological: Alert and oriented to person, place, and time. Examination of the left knee reveals range of motion from 0 to 135 and full strength. Examination of the right knee reveals active range of motion from 0 to 130 and passive range of motion from 0 to 130. There is diffuse peripatellar tenderness. There is no tenderness of the patellar tendon or tibial tubercle. There is no patellar apprehension. The patella tracks normally. There is a trace effusion. Palpation of the medial and lateral joint lines reveals no tenderness. Negative Freda's. The ligament exam is stable to varus and valgus stress at full extension and 30 degrees offlexion. Anterior and posterior drawer tests are negative. The Cherie examination reveals a firm endpoint and translation equal to the contralateral side. The pivot-shift is deferred. The patient has full strength with knee flexion and 5/5 strength with knee extension. Laboratory Results None Imaging Review Independent image review was performed today Plain films of the right knee demonstrates mild OA of all three compartments. The CDI is 1.11 MRI of the right knee demonstrates OA - worst I nteh PFJ where there is mostly lateral and distal patellar chondral damage but some relatively diffuse wear. The ACL, PCL, collaterals are intact. There is some lateral meniscus loss and mild degenerative change in the medial and lateral compartments.The TT-TG distance is 12mm Assessment: Right knee patellar chondral damage - mostly lateral and distal Mild tricompartmental OA Plan: We discussed options. Given her location of her chondral damage, she could consider an AMZ osteotomy to offload the distal and lateral patella. We also discussed PRP as an option. Given her possible upcoming hip surgery, we will plan to proceed with PRP and more exercises. She will contact us to let us know how her hip is doing and discuss further options. The patient will call the office with any questions or concerns prior to that time. [facility] * Encounter Date Diagnosis Assessment Notes Treatment Notes Treatment Clinical Notes Mar, SOB (shortness of breath) (ICD-10 - R06.02) Mar, Pneumonia of lower lobe due to infectious organism, unspecified laterality (ICD-10 - J18.9) Take medications as directed. I think symptoms are improving, using medicaiton to continue to help improve them. Call office for follow up if symptoms are not better in the next few weeks Mar, Mild intermittent chronic asthma with acute exacerbation (ICD-10 - J45.21) Take medications as directed with food. Complete all doses of steroids. Use inhaler or nebulizer at least 2-3 times per day for next 48 hours. Increase fluid intake. Mar, Other Asthma material was printed [employer] Other 12-14-2021 Evaluation note* Encounter Date Diagnosis Assessment Notes Treatment Notes Treatment Clinical Notes Jan, ARSALAN (generalized anxiety disorder) (ICD-10 - F41.1) Today during the appointment we discussed depression and emotions. We talked about treatment options that include both counseling and medication interventions. When we first start treatment, it is common to have to be seen more frequently as we figure out the best treatment regimen that fits you as an individual. We will be able to space out appointments more once we find what works for you. If at any time you feel like your symptoms have increased in severity or you want to hurt yourself, please never hesitate to contact us and we will get you in to be seen. Also always know the [facility] Emergency Number is 24 hours a day available, even on holidays there is someone you can reach out to. Also we will check other labs yearly to screen for other health issues. Please remember we are a team and your opinion is very important in all of your healthcare decisions Jan, PTSD (post-traumatic stress disorder) (ICD-10 - F43.10) Jan, Hernia (ICD-10 - K46.9) Referral placed with surgeon after discussing options and treatment locations. [employer] Other 07-20-2021 History of Past illness Narrative* Problem Noted Date Resolved Date Obesity 09/03/2020 11/29/2020 Abdominal pain 02/01/2020 04/08/2020 Moderate episode of recurrent major depressive d isorder 11/21/2019 01/03/2020 Obesity, Class II, BMI 35-39.9 10/13/2019 1 Last Assessment & Plan: Assessment: BMI 38.74 documented as of this encounter (statuses as of 06/18/2021) [facility]07[facility]20[facility]21 History of Past illness Narrative* Problem Noted Date Resolved Date Obesity 09/03/2020 11/29/2020 Abdominal pain 02/01/2020 04/08/2020 Moderate episode of recurrent major depressive d isorder 11/21/2019 01/03/2020 Obesity, Class II, BMI 35-39.9 10/13/2019 1 Last Assessment & Plan: Assessment: BMI 38.74 documented as of this encounter (statuses as of 06/23/2021) [facility] History of Past illness Narrative* Problem Noted Date Resolved Date Obesity 09/03/2020 11/29/2020 Abdominal pain 02/01/2020 04/08/2020 Moderate episode of recurrent major depressive d isorder 11/21/2019 01/03/2020 Obesity, Class II, BMI 35-39.9 10/13/2019 1 Last Assessment & Plan: Assessment: BMI 38.74 documented as of this encounter (statuses as of 07/09/2021) [address]20-2021 History of Past illness Narrative* Problem Noted Date Resolved Date Obesity 09/03/2020 11/29/2020 Abdominal pain 02/01/2020 04/08/2020 Moderate episode of recurrent major depressive d isorder 11/21/2019 01/03/2020 Obesity, Class II, BMI 35-39.9 10/13/2019 1 Last Assessment & Plan: Assessment: BMI 38.74 documented as of this encounter (statuses as of 07/15/2021) [address]20-2021 History of Past illness Narrative* Problem Noted Date Resolved Date Obesity 09/03/2020 11/29/2020 Abdominal pain 02/01/2020 04/08/2020 Moderate episode of recurrent major depressive d isorder 11/21/2019 01/03/2020 Obesity, Class II, BMI 35-39.9 10/13/2019 1 Last Assessment & Plan: Assessment: BMI 38.74 documented as of this encounter (statuses as of 07/28/2021) [address]20-2021 History of Past illness Narrative* Problem Noted Date Resolved Date Obesity 09/03/2020 11/29/2020 Abdominal pain 02/01/2020 04/08/2020 Moderate episode of recurrent major depressive d isorder 11/21/2019 01/03/2020 Obesity, Class II, BMI 35-39.9 10/13/2019 1 Last Assessment & Plan: Assessment: BMI 38.74 documented as of this encounter (statuses as of 08/01/2021) [address]20-2021 History of Past illness Narrative* Problem Noted Date Resolved Date Obesity 09/03/2020 11/29/2020 Abdominal pain 02/01/2020 04/08/2020 Moderate episode of recurrent major depressive d isorder 11/21/2019 01/03/2020 Obesity, Class II, BMI 35-39.9 10/13/2019 1 Last Assessment & Plan: Assessment: BMI 38.74 documented as of this encounter (statuses as of 08/14/2021) [facility] History of Past illness Narrative* Problem Noted Date Resolved Date Obesity 09/03/2020 11/29/2020 Abdominal pain 02/01/2020 04/08/2020 Moderate episode of recurrent major depressive d isorder 11/21/2019 01/03/2020 Obesity, Class II, BMI 35-39.9 10/13/2019 1 Last Assessment & Plan: Assessment: BMI 38.74 documented as of this encounter (statuses as of 08/22/2021) [facility] History of Past illness Narrative* Problem Noted Date Resolved Date Obesity 09/03/2020 11/29/2020 Abdominal pain 02/01/2020 04/08/2020 Moderate episode of recurrent major depressive d isorder 11/21/2019 01/03/2020 Obesity, Class II, BMI 35-39.9 10/13/2019 1 Last Assessment & Plan: Assessment: BMI 38.74 documented as of this encounter (statuses as of 08/28/2021) [facility] History of Past illness Narrative* Problem Noted Date Resolved Date Obesity 09/03/2020 11/29/2020 Abdominal pain 02/01/2020 04/08/2020 Moderate episode of recurrent major depressive d isorder 11/21/2019 01/03/2020 Obesity, Class II, BMI 35-39.9 10/13/2019 1 Last Assessment & Plan: Assessment: BMI 38.74 documented as of this encounter (statuses as of 08/29/2021) [facility] History of Past illness Narrative* Problem Noted Date Resolved Date Obesity 09/03/2020 11/29/2020 Abdominal pain 02/01/2020 04/08/2020 Moderate episode of recurrent major depressive d isorder 11/21/2019 01/03/2020 Obesity, Class II, BMI 35-39.9 10/13/2019 1 Last Assessment & Plan: Assessment: BMI 38.74 documented as of this encounter (statuses as of 08/29/2021) [facility] History of Past illness Narrative* Problem Noted Date Resolved Date Obesity 09/03/2020 11/29/2020 Abdominal pain 02/01/2020 04/08/2020 Moderate episode of recurrent major depressive d isorder 11/21/2019 01/03/2020 Obesity, Class II, BMI 35-39.9 10/13/2019 1 Last Assessment & Plan: Assessment: BMI 38.74 documented as of this encounter (statuses as of 09/02/2021) [facility] History of Past illness Narrative* Problem Noted Date Resolved Date Obesity 09/03/2020 11/29/2020 Abdominal pain 02/01/2020 04/08/2020 Moderate episode of recurrent major depressive d isorder 11/21/2019 01/03/2020 Obesity, Class II, BMI 35-39.9 10/13/2019 1 Last Assessment & Plan: Assessment: BMI 38.74 documented as of this encounter (statuses as of 10/09/2021) [facility] History of Past illness Narrative* Problem Noted Date Resolved Date Obesity 09/03/2020 11/29/2020 Abdominal pain 02/01/2020 04/08/2020 Moderate episode of recurrent major depressive d isorder 11/21/2019 01/03/2020 Obesity, Class II, BMI 35-39.9 10/13/2019 1 Last Assessment & Plan: Assessment: BMI 38.74 documented as of this encounter (statuses as of 10/09/2021) [facility] History of Past illness Narrative* Problem Noted Date Resolved Date Obesity 09/03/2020 11/29/2020 Abdominal pain 02/01/2020 04/08/2020 Moderate episode of recurrent major depressive d isorder 11/21/2019 01/03/2020 Obesity, Class II, BMI 35-39.9 10/13/2019 1 Last Assessment & Plan: Assessment: BMI 38.74 documented as of this encounter (statuses as of 10/21/2021) [facility] History of Past illness Narrative* Problem Noted Date Resolved Date Obesity 09/03/2020 11/29/2020 Abdominal pain 02/01/2020 04/08/2020 Moderate episode of recurrent major depressive d isorder 11/21/2019 01/03/2020 Obesity, Class II, BMI 35-39.9 10/13/2019 1 Last Assessment & Plan: Assessment: BMI 38.74 documented as of this encounter (statuses as of 11/18/2021) [facility] History of Past illness Narrative* Problem Noted Date Resolved Date Obesity 09/03/2020 11/29/2020 Abdominal pain 02/01/2020 04/08/2020 Moderate episode of recurrent major depressive d isorder 11/21/2019 01/03/2020 Obesity, Class II, BMI 35-39.9 10/13/2019 1 Last Assessment & Plan: Assessment: BMI 38.74 documented as of this encounter (statuses as of 11/18/2021) [facility] History of Past illness Narrative* Problem Noted Date Resolved Date Obesity 09/03/2020 11/29/2020 Abdominal pain 02/01/2020 04/08/2020 Moderate episode of recurrent major depressive d isorder 11/21/2019 01/03/2020 Obesity, Class II, BMI 35-39.9 10/13/2019 1 Last Assessment & Plan: Assessment: BMI 38.74 documented as of this encounter (statuses as of 11/19/2021) [facility] History of Past illness Narrative* Problem Noted Date Resolved Date Obesity 09/03/2020 11/29/2020 Abdominal pain 02/01/2020 04/08/2020 Moderate episode of recurrent major depressive d isorder 11/21/2019 01/03/2020 Obesity, Class II, BMI 35-39.9 10/13/2019 1 Last Assessment & Plan: Assessment: BMI 38.74 documented as of this encounter (statuses as of 11/19/2021) [facility] History of Past illness Narrative* Problem Noted Date Resolved Date Obesity 09/03/2020 11/29/2020 Abdominal pain 02/01/2020 04/08/2020 Moderate episode of recurrent major depressive d isorder 11/21/2019 01/03/2020 Obesity, Class II, BMI 35-39.9 10/13/2019 1 Last Assessment & Plan: Assessment: BMI 38.74 documented as of this encounter (statuses as of 12/17/2021) [facility] History of Past illness Narrative* Problem Noted Date Resolved Date Obesity 09/03/2020 11/29/2020 Abdominal pain 02/01/2020 04/08/2020 Moderate episode of recurrent major depressive d isorder 11/21/2019 01/03/2020 Obesity, Class II, BMI 35-39.9 10/13/2019 1 Last Assessment & Plan: Assessment: BMI 38.74 documented as of this encounter (statuses as of 12/25/2021) [facility] History of Past illness Narrative* Problem Noted Date Resolved Date Obesity 09/03/2020 11/29/2020 Abdominal pain 02/01/2020 04/08/2020 Moderate episode of recurrent major depressive d isorder 11/21/2019 01/03/2020 Obesity, Class II, BMI 35-39.9 10/13/2019 1 Last Assessment & Plan: Assessment: BMI 38.74 documented as of this encounter (statuses as of 12/25/2021) [facility] History of Past illness Narrative* Problem Noted Date Resolved Date Obesity 09/03/2020 11/29/2020 Abdominal pain 02/01/2020 04/08/2020 Moderate episode of recurrent major depressive d isorder 11/21/2019 01/03/2020 Obesity, Class II, BMI 35-39.9 10/13/2019 1 Last Assessment & Plan: Assessment: BMI 38.74 documented as of this encounter (statuses as of 12/25/2021) [facility] History of Past illness Narrative* Problem Noted Date Resolved Date Obesity 09/03/2020 11/29/2020 Abdominal pain 02/01/2020 04/08/2020 Moderate episode of recurrent major depressive d isorder 11/21/2019 01/03/2020 Obesity, Class II, BMI 35-39.9 10/13/2019 1 Last Assessment & Plan: Assessment: BMI 38.74 documented as of this encounter (statuses as of 12/26/2021) [facility] History of Past illness Narrative* Problem Noted Date Resolved Date Obesity 09/03/2020 11/29/2020 Abdominal pain 02/01/2020 04/08/2020 Moderate episode of recurrent major depressive d isorder 11/21/2019 01/03/2020 Obesity, Class II, BMI 35-39.9 10/13/2019 1 Last Assessment & Plan: Assessment: BMI 38.74 documented as of this encounter (statuses as of 01/01/2022) [facility] History of Past illness Narrative* Problem Noted Date Resolved Date Obesity 09/03/2020 11/29/2020 Abdominal pain 02/01/2020 04/08/2020 Moderate episode of recurrent major depressive d isorder 11/21/2019 01/03/2020 Obesity, Class II, BMI 35-39.9 10/13/2019 1 Last Assessment & Plan: Assessment: BMI 38.74 documented as of this encounter (statuses as of 01/02/2022) [facility] History of Past illness Narrative* Problem Noted Date Resolved Date Obesity 09/03/2020 11/29/2020 Abdominal pain 02/01/2020 04/08/2020 Moderate episode of recurrent major depressive d isorder 11/21/2019 01/03/2020 Obesity, Class II, BMI 35-39.9 10/13/2019 1 Last Assessment & Plan: Assessment: BMI 38.74 documented as of this encounter (statuses as of 01/06/2022) [address]20-2021 History of Past illness Narrative* Problem Noted Date Resolved Date Obesity 09/03/2020 11/29/2020 Abdominal pain 02/01/2020 04/08/2020 Moderate episode of recurrent major depressive d isorder 11/21/2019 01/03/2020 Obesity, Class II, BMI 35-39.9 10/13/2019 1 Last Assessment & Plan: Assessment: BMI 38.74 documented as of this encounter (statuses as of 01/20/2022) [facility] History of Past illness Narrative* Problem Noted Date Resolved Date Obesity 09/03/2020 11/29/2020 Abdominal pain 02/01/2020 04/08/2020 Moderate episode of recurrent major depressive d isorder 11/21/2019 01/03/2020 Obesity, Class II, BMI 35-39.9 10/13/2019 1 Last Assessment & Plan: Assessment: BMI 38.74 documented as of this encounter (statuses as of 01/28/2022) [facility] History of Past illness Narrative* Problem Noted Date Resolved Date Obesity 09/03/2020 11/29/2020 Abdominal pain 02/01/2020 04/08/2020 Moderate episode of recurrent major depressive d isorder 11/21/2019 01/03/2020 Obesity, Class II, BMI 35-39.9 10/13/2019 1 Last Assessment & Plan: Assessment: BMI 38.74 documented as of this encounter (statuses as of 02/02/2022) [facility] History of Past illness Narrative* Problem Noted Date Resolved Date Obesity 09/03/2020 11/29/2020 Abdominal pain 02/01/2020 04/08/2020 Moderate episode of recurrent major depressive d isorder 11/21/2019 01/03/2020 Obesity, Class II, BMI 35-39.9 10/13/2019 1 Last Assessment & Plan: Assessment: BMI 38.74 documented as of this encounter (statuses as of 02/02/2022) [address]20-2021 History of Past illness Narrative* Problem Noted Date Resolved Date Obesity 09/03/2020 11/29/2020 Abdominal pain 02/01/2020 04/08/2020 Moderate episode of recurrent major depressive d isorder 11/21/2019 01/03/2020 Obesity, Class II, BMI 35-39.9 10/13/2019 1 Last Assessment & Plan: Assessment: BMI 38.74 documented as of this encounter (statuses as of 02/03/2022) [facility] History of Past illness Narrative* Problem Noted Date Resolved Date Obesity 09/03/2020 11/29/2020 Abdominal pain 02/01/2020 04/08/2020 Moderate episode of recurrent major depressive d isorder 11/21/2019 01/03/2020 Obesity, Class II, BMI 35-39.9 10/13/2019 1 Last Assessment & Plan: Assessment: BMI 38.74 documented as of this encounter (statuses as of 02/03/2022) [facility] History of Past illness Narrative* Problem Noted Date Resolved Date Obesity 09/03/2020 11/29/2020 Abdominal pain 02/01/2020 04/08/2020 Moderate episode of recurrent major depressive d isorder 11/21/2019 01/03/2020 Obesity, Class II, BMI 35-39.9 10/13/2019 1 Last Assessment & Plan: Assessment: BMI 38.74 documented as of this encounter (statuses as of 02/04/2022) [address]20-2021 History of Past illness Narrative* Problem Noted Date Resolved Date Obesity 09/03/2020 11/29/2020 Abdominal pain 02/01/2020 04/08/2020 Moderate episode of recurrent major depressive d isorder 11/21/2019 01/03/2020 Obesity, Class II, BMI 35-39.9 10/13/2019 1 Last Assessment & Plan: Assessment: BMI 38.74 documented as of this encounter (statuses as of 02/06/2022) [address]20-2021 History of Past illness Narrative* Problem Noted Date Resolved Date Obesity 09/03/2020 11/29/2020 Abdominal pain 02/01/2020 04/08/2020 Moderate episode of recurrent major depressive d isorder 11/21/2019 01/03/2020 Obesity, Class II, BMI 35-39.9 10/13/2019 1 Last Assessment & Plan: Assessment: BMI 38.74 documented as of this encounter (statuses as of 02/15/2022) [address]20-2021 History of Past illness Narrative* Problem Noted Date Resolved Date Obesity 09/03/2020 11/29/2020 Abdominal pain 02/01/2020 04/08/2020 Moderate episode of recurrent major depressive d isorder 11/21/2019 01/03/2020 Obesity, Class II, BMI 35-39.9 10/13/2019 1 Last Assessment & Plan: Assessment: BMI 38.74 documented as of this encounter (statuses as of 02/18/2022) [address]20-2021 History of Past illness Narrative* Problem Noted Date Resolved Date Obesity 09/03/2020 11/29/2020 Abdominal pain 02/01/2020 04/08/2020 Moderate episode of recurrent major depressive d isorder 11/21/2019 01/03/2020 Obesity, Class II, BMI 35-39.9 10/13/2019 1 Last Assessment & Plan: Assessment: BMI 38.74 documented as of this encounter (statuses as of 03/05/2022) [facility] History of Past illness Narrative* Problem Noted Date Resolved Date Obesity 09/03/2020 11/29/2020 Abdominal pain 02/01/2020 04/08/2020 Moderate episode of recurrent major depressive d isorder 11/21/2019 01/03/2020 Obesity, Class II, BMI 35-39.9 10/13/2019 1 Last Assessment & Plan: Assessment: BMI 38.74 documented as of this encounter (statuses as of 03/05/2022) [facility] History of Past illness Narrative* Problem Noted Date Resolved Date Obesity 09/03/2020 11/29/2020 Abdominal pain 02/01/2020 04/08/2020 Moderate episode of recurrent major depressive d isorder 11/21/2019 01/03/2020 Obesity, Class II, BMI 35-39.9 10/13/2019 1 Last Assessment & Plan: Assessment: BMI 38.74 documented as of this encounter (statuses as of 03/07/2022) [facility] History of Past illness Narrative* Problem Noted Date Resolved Date Obesity 09/03/2020 11/29/2020 Abdominal pain 02/01/2020 04/08/2020 Moderate episode of recurrent major depressive d isorder 11/21/2019 01/03/2020 Obesity, Class II, BMI 35-39.9 10/13/2019 1 Last Assessment & Plan: Assessment: BMI 38.74 documented as of this encounter (statuses as of 03/30/2022) [facility] History of Past illness Narrative* Problem Noted Date Resolved Date Obesity 09/03/2020 11/29/2020 Abdominal pain 02/01/2020 04/08/2020 Moderate episode of recurrent major depressive d isorder 11/21/2019 01/03/2020 Obesity, Class II, BMI 35-39.9 10/13/2019 1 Last Assessment & Plan: Assessment: BMI 38.74 documented as of this encounter (statuses as of 06/14/2022) [facility] History of Past illness Narrative* Problem Noted Date Resolved Date Obesity 09/03/2020 11/29/2020 Abdominal pain 02/01/2020 04/08/2020 Moderate episode of recurrent major depressive d isorder 11/21/2019 01/03/2020 Obesity, Class II, BMI 35-39.9 10/13/2019 1 Last Assessment & Plan: Assessment: BMI 38.74 documented as of this encounter (statuses as of 06/18/2022) [facility] Emergency department Note* Nabila Childs RN - 07/02/2020 4:43 PM EDT Reviewed discharge instructions with pt, all questions and concerns addressed. Pt states that her ride will be here within 45 minutes and will let a nurse know when she is leaving. * Nabila Childs RN - 07/02/2020 3:19 PM EDT Ultrasound at bedside now. * Dayanara Montana RN - 07/02/2020 3:07 PM EDT Pt requesting pain medication. Dandre and Dr Ceja made aware * Gabino Hackett RN - 07/02/2020 2:50 PM EDT Bed: E015 Expected date: Expected time: Means of arrival: Comments: Room #3 * Juanito Laird PA-C - 07/02/2020 2:36 PM EDT Emergency Department Report [facility] EMERGENCY DEPARTMENT Service Date:.07/02/20 PCP: Shanna June Chief Complaint: Chief Complaint Patient presents with Abdominal Pain Vaginal Bleeding HPI Abbey Garcia is a 30 y.o. female presents to the ED today due to right flank pain and right-sided abdominal pain. Is been going on for the past 5 days. It is become more severe over the past 48 hours. Patient has had a history of hemorrhagic ovarian cyst secondary to her PCO S. She does not believe it feels similar. There is no family history or patient history of kidney stones. Patient has had previous cholecystectomy and appendectomy. Patient also states she has been having heavy vaginal bleeding with passing of large clots as well. She denies any syncope or near-syncope. Pain radiate down either leg. Appetite has been diminished fluids have been well. The pain does not cross the midline. It is sharp stabbing crampy in nature. She denies any numbness or tingling extremity's. No falls or trauma. No fever or chills. Review of Systems: Review of Systems Constitutional: Negative. HENT: Negative. Eyes: Negative. Respiratory: Negative. Cardiovascular: Negative. Gastrointestinal: Positive for abdominal pain and nausea. Endocrine: Negative. Genitourinary: Negative. Musculoskeletal: Negative. Allergic/Immunologic: Negative. Neurological: Negative. Hematological: Negative. Past Medical History: Past Medical History: Diagnosis Date Hypothyroidism PCOS (polycystic ovarian syndrome) Past Surgical History: Past Surgical History: Procedure Laterality Date APPENDECTOMY SECTION CHOLECYSTECTOMY Allergies: Allergies Allergen Reactions Codeine And Related Medications: Current Discharge Medication List START taking these medications Details !! ondansetron 4 MG Tab Dispersible tablet Take 1 tablet by mouth every [address] ontongue Qty: 15 tablet, Refills: 0 !! - Potential duplicate medications found. Please discuss with provider. CONTINUE these medications which have CHANGED Details hydroCODone-acetaminophen 5-325 MG tablet Take 1 tablet by mouth every 6 hours as needed for up to 4 days. Qty: 12 tablet, Refills: 0 Associated Diagnoses: Complex ovarian cyst; Uterine leiomyoma, unspecified location CONTINUE these medications which have NOT CHANGED Details DULoxetine (Cymbalta) [address] Particles capsule DR 2 capsules levothyroxine 100 MCG Tab tablet Take 100 mcg by mouth daily. Liothyronine Sodium (CYTOMEL PO) Take by mouth. metformin 500 MG Tab tablet Take 1,000 mg by mouth 2 times daily with meals. labetalol 100 MG Tab tablet Take 100 mg by mouth 2 times daily. !! ondansetron 4 MG Tab Dispersible tablet Take 1 tablet by mouth every 8 hours as needed for Nausea for up to [address] on tongue Qty: 12 tablet, Refills: 0 topiramate 25 MG tablet Take 25 mg by mouth 2 times daily. !! - Potential duplicate medications found. Please discuss with provider. Family History: No family history on file. Social History: Social History Socioeconomic History Marital status: Spouse name: Not on file Number of children: Not on file Years of education: Not on file Highest education level: Not on file Occupational History Not on file Tobacco Use Smoking status: Never Smoker Smokeless tobacco: Never Used Substance and Sexual Activity Alcohol use: No Drug use: No Sexual activity: Not on file Other Topics Concern Not on file Social History Narrative Not on file Social Determinants of Health Financial Resource Strain: Difficulty of Paying Living Expenses: Food Insecurity: Worried About Running Out of Food in the Last Year: Ran Out of Food in the Last Year: Transportation Needs: Lack of Transportation (Medical): Lack of Transportation (Non-Medical): Physical Activity: Days of Exercise per Week: Minutes of Exercise per Session: Stress: Feeling of Stress : Social Connections: Frequency of Communication with Friends and Family: Frequency of Social Gatherings with Friends and Family: Attends [employer] Services: Active Member of Clubs or Organizations: Attends Club or Organization Meetings: Marital Status: Intimate Partner Violence: Fear of Current or Ex-Partner: Emotionally Abused: Physically Abused: Sexually Abused: Physical Exam: Pleasant well-nourished well-developed female in no acute distress and no respiratory distress. She has my questions appropriately follows my commands without difficulty. HEENT normocephalic/atraumatic. Sclerae anicteric no otorrhea no right or. Oral mucosa is moist. Neck supple no ad enopathy trachea is midline. Lungs are clear to auscultation mother no Rales, wheezes or rhonchi. Heart is a regular rate and rhythm. Positive right-sided abdominal pain suppression deep palpation. No right lower right upper quadrant pain. No rash or lesions on the skin. The left upper quadrant of lower quadrant abdominal pain. No better umbilical pain. Negative psoas, obturator heel jar. Patienthas a nonfocal neurologic exam. Vital Signs During ED Visit Patient Vitals for the past 24 hrs: BP Temp Temp src Pulse Resp SpO2 Height Weight 07/02/20 1316 165/56 71 18 99 % 07/02/20 1244 97.4 F (36.3 C) Oral 07/02/20 1235 1.676 m (5' 6 ) 104.3 kg (230 lb) 07/02/20 1232 (!) 189/92 97.9 F (36.6 C) Oral 118 16 95 % Differential Diagnosis: Ovarian cyst, hemorrhagic cyst, ovarian torsion, colitis, kidney stone Orders/Results: Orders Placed This Encounter CT ABDOMEN/PELVIS WITHOUT CONTRAST US PELVIC WITH TRANSVAGINAL WITH DOPPLER CBC, EDIF, PLATELET COMPREHENSIVE METABOLIC PANEL PROTIME-INR LIPASE LACTATE, BLOOD TYPE AND SCREEN - POSSIBLE TRANSFUSION DULoxetine (Cymbalta) [address] Particles capsule DR sodium chloride 0.9% IV solution 1,000 mL dicyclomine (BENTYL) injection 20 mg ondansetron 4mg/2ml (ZOFRAN) injection 4 mg ketorolac (TORADOL) injection 15 mg hydroCODone-acetaminophen (NORCO) 5-325 MG per tablet 2 tablet ondansetron 4mg/2ml (ZOFRAN) injection 4 mg DISCONTD: hydroCODone-acetaminophen 5-325 MG tablet DISCONTD: ondansetron 4 MG Tab Dispersible tablet hydroCODone-acetaminophen 5-325 MG tablet ondansetron 4 MG Tab Dispersible tablet URINALYSIS, MACRO HCG QUALITATIVE, URINE URINE MICROSCOPIC Results for orders placed or performed during the hospital encounter of 07/02/20 CBC, EDIF, PLATELET Result Value Ref Range WBC (WHITE BLOOD COUNT) 7.3 3.6 - 11.0 10*3/uL RBC 4.31 4.0 - 5.4 10*6/uL HEMOGLOBIN (HGB) 12.1 12.0 - 16.0 G/DL HEMATOCRIT (HCT) 36.2 36.0 - 48.0 % MEAN CELL VOLUME 84.1 80.0 - 100.0 FL Mean Cell HGB 28.1 26.0 - 35.0 PG MEAN CELL HGB CONCENTRATION 33.4 27.0 - 37.0 G/DL RBC DISTRIBUTION 14.1 11.5 - 14.5 % PLATELET COUNT 295 130 - 400 10*3/uL MEAN PLATELET VOLUME 8.9 7.4 - 11.0 FL DIFFERENTIAL TYPE AUTO DIFF % NEUTROPHILS 68.3 37.0 - 75.0 % LYMPHOCYTE 23.4 20.0 - 55.0 % MONOCYTE % 6.4 0.0 - 10.0 % EOSINOPHIL % 1.3 0.0 - 11.0 % BASOPHIL % 0.6 0.0 - 2.0 % Absolute Neutrophil Count 5.0 1 - 6 10*3/uL LYMPHOCYTES, ABSOLUTE 1.70 1.2 - 3.4 10*3/uL MONOCYTES, ABSOLUTE 0.5 0.0 - 0.7 10*3/uL ABSOLUTE EOSINOPHIL COUNT 0.10 0 - 0 10*3/uL ABSOLUTE BASOPHIL COUNT 0.0 0 - 0 10*3/uL COMPREHENSIVE METABOLIC PANEL Result Value Ref Range GLUCOSE 84 70 - 100 MG/DL BUN 15 7.0 - 20.0 MG/DL CREATININE SERUM 0.59 0.5 - 1.0 MG/DL SODIUM 134 (L) 136 - 145 MMOL/L POTASSIUM 4.1 3.5 - 5.1 MMOL/L CHLORIDE 102 98 - 107 MMOL/L CALCIUM 9.2 8.4 - 10.2 MG/DL PROTEIN, TOTAL 7.3 6.3 - 8.2 GM/DL ALBUMIN 4.1 3.5 - 5.0 G/dl BILIRUBIN, TOTAL 0.5 0.2 - 1.2 MG/DL AST 29 15 - 41 IU/L ALKALINE PHOSPHATASE 52 38 - 126 IU/L CARBON DIOXIDE (CO2) 22 22 - 30 MMOL/L A/G Ratio 1.3 1.3 - 2.2 RATIO ALT 16 14 - 54 IU/L ESTIMATED GFR, NON AMER >60 ml/min/1.73sq.m ESTIMATED GFR, >60 ml/min/1.73sq.m GFR COMMENT Average GFR for 30-39 years old = 109. PROTIME-INR Result Value Ref Range PT 12.9 11.8 - 14.4 SEC INR 0.95 0.88 - 1.12 LIPASE Result Value Ref Range LIPASE 32 23 - 300 U/L LACTATE, BLOOD Result Value Ref Range LACTATE, PLASMA 1.0 0.5 - 2.0 MMOL/L TYPE AND SCREEN - POSSIBLE TRANSFUSION Result Value Ref Range EXPIRATION DATE 07/05/2020,2359 ABO/RH(D) O POSITIVE ANTIBODY SCREEN NEGATIVE ARM BAND NUMBER [id number] URINALYSIS, MACRO Result Value Ref Range COLOR, URINE PINK (A) YELLOW APPEARANCE, URINE SLIGHTLY CLOUDY (A) CLEAR SPECIFIC GRAVITY, URINE <1.005 (L) 1.010 - 1.025 PH URINE 5.5 5.0 - 7.0 PROTEIN, URINE 100 (A) NEGATIVE mg/dl GLUCOSE, URINE NEGATIVE NEGATIVE mg/dl KETONES, URINE NEGATIVE NEGATIVE mg/dl BILIRUBIN, URINE NEGATIVE NEGATIVE BLOOD, URINE DIPSTICK LARGE (A) NEGATIVE NITRITES, URINE NEGATIVE NEGATIVE UROBILINOGEN, URINE 0.2 0.2 - 1.0 E.U./dL LEUKOCYTE ESTERASE, URINE TRACE (A) NEGATIVE HCG QUALITATIVE, URINE Result Value Ref Range HCG, QUALITATIVE, URINE NEGATIVE NEGATIVE URINE MICROSCOPIC Result Value Ref Range WBC, URINE 1 TO 5 NEGATIVE /HPF RBC, URINE TOO NUMEROUS TO COUNT (A) NEGATIVE /HPF Epithelial Cells UA 10 TO 20 /HPF Mucus NEGATIVE NEGATIVE BACTERIA, URINE TRACE (A) NEGATIVE CRYSTALS, URINE NONE NONE CASTS, URINE NONE NONE /LPF COMMENT, URINE POSSIBLY CONTAMINATED SPECIMEN, CULTURE MUST BE ORDERED SEPARATELY IF DEEMED NECESSARY. Radiographic Imaging US PELVIC WITH TRANSVAGINAL WITH DOPPLER Final Result IMPRESSION: 5.5 cm septated right ovarian cyst No evidence of right ovarian torsion Nonvisualization of the left ovary 4.1 cm myometrial masses, leiomyoma suspected CT ABDOMEN/PELVIS WITHOUT CONTRAST Final Result IMPRESSION: CT abdomen and CT pelvis studies demonstrate findings compatible with hepatic cysts as described, similar to prior study. Finding is compatible with complex right adnexal cyst as noted. Correlate for mild gastroenteritis. Lab/Imaging Results Summary: As above Procedures: None Procedures Progress Notes/Re-evaluation: Sheet given pelvis showed complex right adnexal cyst. 5.9 x 3.8. Mild gastroenteritis vessel structures grossly intact. No evidence of kidney stone. Trace tenderness, redness white cell 15-20 epithelials indicate tones lactic is 1. Sodium [address] as negative. White count 7.3 H&H isstable. Platelet count 295. No left shift. Patient underwent pelvic ultrasound this with the possibility of ovarian torsion. This result showed. Evidence of ovarian torsion. She had a 5.5 similar septated right ovarian cyst. No evidence of torsion. She also had a 4.170 or myometrial mass leiomyoma suspected. His H&H is stable. She was started on Hines and Zofran. Follow up with her ENROLLMENT REPRESENTATIVE. Chart was 5 to the ENROLLMENT REPRESENTATIVE's office. 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 She is discharged satisfactory stable condition. No evidence of ovarian torsion or other acute intra-abdominal emergency. ED Summary: As above Clinical Impression: 1. Complex ovarian cyst 2. Uterine leiomyoma, unspecified location No follow-ups on file. Current Discharge Medication List START taking these medications Details !! ondansetron 4 MG Tab Dispersible tablet Take 1 tablet by mouth every [address] ontongue Qty: 15 tablet, Refills: 0 !! - Potential duplicate medications found. Please discuss with provider. Current Discharge Medication List An After Visit Summary was printed and given to the patient with above information. . Juanito Laird PA-C 07/02/20 1632 * Vaughn Ceja MD - 07/02/2020 12:49 PM EDT Patient was seen by me as well as the PA all medical decision making and course was discussed with me. 30-year-old complaining of right-sided abdominal pain and flank pain. She states movement on for the past 2 days. She has had vaginal bleeding. She states she is not to be on her period. She states she is been passing clots. She states she has had her appendix removed. She states she does not feel that she could be as she does have an implanted. She denies any shaking chills. She states she does get some relief when she urinates. She denies any trauma to the abdomen. She denies any chest pain or palpitations. She denies any bleeding disorders. She denies any cough. She denies any numbness between the legs or pain radiating Exam: Well-nourished well-hydrated nontoxic. Head is atraumatic. Face is symmetric. Mucous membranes are well-hydrated. Abdomen is soft. There is no rebound tenderness. She does complain of tenderness in the right lower abdomen. Negative Hamm sign. Back reveals no CVA tenderness. Skin is warm and dry. Lungs sounds are clear. Mucous membranes are well-hydrated Vaughn Ceja MD 07/02/20 1251 * Sonia Ramirez RN - 07/02/2020 12:38 PM EDT Pt c/o RLQ pain since yesterday. Also having vaginal bleeding with large clots documented in this [facility]07-24-2020 Evaluation + Plan note Future Appointments Appointment Date:07/23/2022 01:00:00 PM Scheduled [facility]: [facility] Type:CV Echo (FT) Appointment Date:09/07/2022 11:00:00 AM Scheduled Provider:Nate PRICE MD Location:[facility] Appointment Type:URO New Patient Future Scheduled Tests Radiology* US Renal 06/10/22 * Echo Transthoracic Complete 07/23/22 [facility]05-24-2020 Evaluation + Plan note Future Appointments Appointment Date:07/07/2022 11:00:00 AM Scheduled Provider: [facility] Type:CV Echo (FT) Appointment Date:07/08/2022 01:00:00 PM Scheduled Provider:Raulito Jack MD [facility] New Patient (FT) Future Scheduled Tests Radiology* US Renal 06/10/22 * [facility] Tran[facility]horacic [facility] App[facility]ments Appointment Date:06/11/2022 03:00:00 PM Scheduled Provider:Raulito Jack MD [facility]:Cardiology New Patient (FT) Future Scheduled Tests Radiology* [facility] App[facility]ments Appointment Date:09/07/2022 11:00:00 AM Scheduled Provider:Nate PRICE MD Location:[facility] Appointment Type:URO New Patient Future Scheduled Tests Radiology* [facility] Future Appointments Appointment Date:01/20/2023 10:00:00 AM Scheduled Provider:Rajni Rouse MD Location:[facility] Appointment Type:URO Office Visit Future Scheduled Tests Radiology* US Renal 06/10/22 [facility] evaluation + Plan note Future Appointments Appointment Date:10/21/2022 02:20:00 PM Scheduled Provider:Jaquan Paula Location:[facility] Appointment Type:FM ER/Hospital Follow Up Appointment Date:11/20/2022 02:40:00 PM Scheduled Provider: Location:[facility] Appointment Type:FM Lab Draw Appointment Date:01/20/2023 10:00:00 AM Scheduled Provider:Rajni Rouse MD Location:[facility] Appointment Type:URO Office Visit Future Scheduled Tests Laboratory* T3 Free 10/07/22 * Thyroid Stimulating Hormone 10/07/22 * Free T4 10/07/22 Radiology* [facility] Future Appointments Appointment Date:11/19/2022 02:30:00 PM Scheduled Provider:Odilon Strange MD [facility] Appointment Type:Cardiology New Patient (FT) Appointment Date:01/20/2023 10:00:00 AM Scheduled Provider:Rajni Rouse MD Location:[facility] Appointment Type:URO Office Visit Future Scheduled Tests Radiology* US Renal 06/10/22 [facility] note* Diagnosis Complex ovarian cyst- Primary Other and unspecified ovarian cyst Uterine leiomyoma, unspecified location [facility] Diagnosis Contusion of right thumb without damage to nail, initial encounter- Primary documented in this encounter [employer] Phone: Evaluation note* Diagnosis 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 Acetabular labrum tear, right, initial encounter- Primary [facility] Diagnosis Tear of right acetabular labrum, subsequent encounter- Primary documented in this encounter [facility] note* Diagnosis Tear of right acetabular labrum, subsequent encounter- Primary Tear of right acetabular labrum, subsequent encounter documented in this encounter [facility] note* Diagnosis Generalized abdominal pain- Primary Abdominal pain, generalized documented in this encounter [facility] [employer] Phone: evaluation note* Diagnosis Tear of right acetabular labrum, subsequent encounter- Primary documented in this encounter [facility] noteNoLily & Strum Other Evaluation noteNo InformationSina Weibo Other Evaluation note* Diagnosis S/P laparoscopic sleeve gastrectomy- Primary Bariatric surgery status Obesity, Class I, BMI 30-34.9 Obesity, unspecified Dietary counseling and surveillance Dietary surveillance and counseling documented in this encounter [facility] note* Diagnosis Tear of right acetabular labrum, subsequent encounter- Primary documented in this [facility]* Diagnosis Dental infection- Primary Acute apical periodontitis of pulpal origin documented in this encounter [employer] Phone: evaluation note* Diagnosis Gastroesophageal reflux disease, unspecified whether esophagitis present- Primary Bariatric surgery status Weight disorder Other symptoms concerning nutrition, metabolism, and development Class 1 obesity with serious comorbidity and body mass index (BMI) of 31.0 to 31.9 in adult, unspecified obesity type S/P laparoscopic sleeve gastrectomy Bariatric surgery status Dietary counseling and surveillance Dietary surveillance and counseling documented in this encounter [facility] note* Diagnosis Gastroesophageal reflux disease without esophagitis- Primary Esophageal reflux documented in this encounter [facility] note* Diagnosis Gastroesophageal reflux disease without esophagitis- Primary Esophageal reflux S/P laparoscopic sleeve gastrectomy Bariatric surgery status documented in this encounter [facility] note* Diagnosis Regurgitation of food- Primary Gastroesophageal reflux disease, unspecified whether esophagitis present documented in this encounter [facility] note* Diagnosis Regurgitation of food Gastroesophageal reflux disease, unspecified whether esophagitis present [facility] Diagnosis Gastroesophageal reflux disease without esophagitis Esophageal reflux documented in this encounter [facility]* Diagnosis Gastroesophageal reflux disease, unspecified whether esophagitis present- Primary documented in this encounter [facility]* Diagnosis Gastroesophageal reflux disease with esophagitis without hemorrhage- Primary RICHAR (obstructive sleep apnea) Obstructive sleep apnea (adult) (pediatric) Class 1 obesity with serious comorbidity and body mass index (BMI) of 33.0 to 33.9 in adult, unspecified obesity type S/P laparoscopic sleeve gastrectomy Bariatric surgery status Weight disorder Other symptoms concerning nutrition, metabolism, and development documented in this encounter [facility]* Diagnosis Pre-op evaluation- Primary Preoperative examination, unspecified Benign essential HTN Essential hypertension, benign RICHAR on CPAP Obstructive sleep apnea (adult) (pediatric) Mild intermittent asthma without complication Unspecified asthma Anemia, unspecified type Class 1 obesity without serious comorbidity with body mass index (BMI) of 33.0 to 33.9 in adult, unspecified obesity type Preoperative examination Preoperative examination, unspecified Gastroesophageal reflux disease with esophagitis without hemorrhage documented in this encounter [facility]* Diagnosis S/P bariatric surgery- Primary Bariatric surgery status Postoperative pain Other acute postoperative pain Primary osteoarthritis involving multiple joints [facility] Diagnosis S/P gastric surgery- Primary Other postprocedural status Dietary counseling Dietary surveillance and counseling [facility] Diagnosis Postoperative pain Other acute postoperative pain [facility] Diagnosis Acetabular labrum tear, right, subsequent encounter- Primary [facility]* Diagnosis Esophageal dysphagia- Primary Dysphagia, pharyngoesophageal phase S/P gastric bypass Bariatric surgery status Postoperative malabsorption Other and unspecified postsurgical nonabsorption [facility]* Diagnosis Esophageal dysphagia Dysphagia, pharyngoesophageal phase S/P gastric bypass Bariatric surgery status S/P bariatric surgery Bariatric surgery status documented in this encounter [facility]* Diagnosis Polyarthralgia- Primary Pain in joint, multiple sites Malaise and fatigue Other malaise and fatigue Subjective fever S/P laparoscopic sleeve gastrectomy Bariatric surgery status History of syncope Other specified personal history presenting hazards to health History of adrenal insufficiency Personal history of other endocrine, metabolic, and immunity disorders Hypothyroidism, unspecified type documented in this encounter [facility] note* Diagnosis Encounter to discuss test results- Primary Other specified counseling NO SHOW documented in this encounter [facility] note* Diagnosis Constipation, unspecified constipation type- Primary Nausea Nausea alone Rash of face Rash and other nonspecific skin eruption Enlarged lymph nodes Enlargement of lymph nodes documented in this encounter [facility] note* Diagnosis Vernal conjunctivitis of both eyes- Primary documented in this encounter [facility] note* Diagnosis Rash and nonspecific skin eruption- Primary Rash and other nonspecific skin eruption Pain in eye, unspecified laterality Facial edema Edema documented in this encounter [facility] note* Diagnosis Encounter for surgical aftercare following surgery of digestive system- Primary Aftercare following surgery of the teeth, oral cavity and digestive system, NEC Impaired intestinal absorption Unspecified intestinal malabsorption Esophageal dysphagia Dysphagia, pharyngoesophageal phase Gastroesophageal reflux disease, unspecified whether esophagitis present S/P bariatric surgery Bariatric surgery status documented in this encounter [facility] note* Diagnosis ARSALAN (generalized anxiety disorder)- Primary Generalized anxiety disorder Panic disorder without agoraphobia Moderate recurrent major depression (HCC) Major depressive disorder, recurrent episode, moderate documented in this encounter [facility] note* Diagnosis Postoperative malabsorption- Primary Other and unspecified postsurgical nonabsorption S/P gastric bypass Bariatric surgery status Overweight (BMI 25.0-29.9) Overweight Dietary counseling and surveillance Dietary surveillance and counseling documented in this encounter [facility] note* Diagnosis ARSALAN (generalized anxiety disorder)- Primary Generalized anxiety disorder Panic disorder without agoraphobia Moderate recurrent major depression (HCC) Major depressive disorder, recurrent episode, moderate documented in this encounter [facility] note* Diagnosis Epigastric pain- Primary Abdominal pain, epigastric documented in this encounter [facility] note* Diagnosis Back strain, initial encounter- Primary documented in this encounter [facility] note* Diagnosis Generalized abdominal pain- Primary Abdominal pain, generalized documented in this encounter [facility] note* Diagnosis Nausea- Primary Nausea alone documented in this encounter [facility] note* Diagnosis Gastroesophageal reflux disease, unspecified whether esophagitis present documented in this encounter [facility] note* Diagnosis Generalized anxiety disorder documented in this encounter [facility] note* Diagnosis Nausea- Primary Nausea alone RUQ pain Abdominal pain, right upper quadrant History of cholecystectomy Other acquired absence of organ documented in this encounter [facility] note* Diagnosis Dehydration- Primary RUQ pain Abdominal pain, right upper quadrant documented in this encounter [facility] note* Diagnosis Right knee pain, unspecified chronicity- Primary documented in this encounter [facility] note* Diagnosis Post-operative pain- Primary Other acute postoperative pain 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 documented in this encounter [facility] note* Diagnosis Dehydration- Primary Nausea Nausea alone RUQ pain Abdominal pain, right upper quadrant documented in this encounter [facility] note* Diagnosis RUQ pain- Primary Abdominal pain, right upper quadrant Chronic nausea Nausea alone documented in this encounter [facility] note* Diagnosis Chronic nausea Nausea alone RUQ pain Abdominal pain, right upper quadrant documented in this encounter [facility] note* Diagnosis Abdominal pain, unspecified abdominal location- Primary documented in this encounter [facility] note* Diagnosis Generalized abdominal pain- Primary Abdominal pain, generalized documented in this encounter [facility] note* Diagnosis Nausea Nausea alone RUQ pain Abdominal pain, right upper quadrant History of cholecystectomy Other acquired absence of organ documented in this encounter [facility] note* Diagnosis Median arcuate ligament syndrome (HCC)- Primary Celiac artery compression syndrome Neuralgia and neuritis Neuralgia, neuritis, and radiculitis, unspecified documented in this encounter [facility] note* Diagnosis Chronic pain syndrome- Primary 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 documented in this encounter [facility] note* Diagnosis Median arcuate ligament syndrome (HCC)- Primary 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 Work Phone: History general Narrative - ReportedNort Lucky Sort Other History general Narrative - Reported* Type Description Date Medical History PCOs Medical History hypothyroidism Medical History anxiety Medical History hashimotos thyroiditis Medical History pre-eclampsia - yes Medical History traumatic child delivery child r ushed to NICU Medical History Gestational Diabetes Medical History PTSD Medical History ARSALAN Surgical History C section x3 Surgical History cholecystectomy Surgical History right knee surgery x4 Surgical History left knee x 1 Surgical History gastric sleeve Surgical History hystectomy 2020 Hospitalization History childbirths Hospitalization History [facility] 2019 Hospitalization History salvador axel-gastritis 1 03/2020 [employer] Other History general Narrative - Reported* Type Description Date Medical History PCOs Medical History hypothyroidism Medical History anxiety Medical History hashimotos thyroiditis Medical History pre-eclampsia - yes Medical History traumatic child delivery child r ushed to NICU Medical History Gestational Diabetes Medical History PTSD Medical History ARSALAN Medical History hypothyroidism Medical History PCOS Surgical History C section x3 Surgical History left knee scope Surgical History 4 knee surgeries Surgical History cholecystectomy Surgical History right knee surgery x4 Surgical History left knee x 1 Surgical History gastric sleeve Surgical History hystectomy 2020 Surgical History hernia repair 03/20/2021 Hospitalization History childbirths Hospitalization History [facility] 2019 Hospitalization History salvador axel-gastritis 1 03/2020 [employer] [facility] Other Hospital course Narrative No data available for this section [facility] Discharge instructions* Attachments The following attachments cannot be sent through Care Everywhere. * Uterine Fibroids (Burmese) * Ovarian Cyst: Hemorrhagic (Burmese) [facility]* Attachments The following attachments cannot be sent through Care Everywhere. * Finger: Bruises (Burmese) * Subungual Hematoma (Burmese) documented in this [facility] Work Phone: Hospital Discharge instructions* Attachments The following attachments cannot be sent through Care Everywhere. * Abdominal Pain (Burmese) documented in this [facility] Work Phone: Hospital Discharge instructions No data available for this section [facility] Discharge instructions* Attachments The following attachments cannot be sent through Care Everywhere. * Abdominal Pain (Burmese) [facility] Additional Instructions Please take medications as prescribed. Return to ER or follow-up with PCP or GI specialist if symptoms worsen. 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.[facility] Work Phone: Progress note No data available for this section [facility] (n[facility])* Consultation (Routine) - New Request Specialty Diagnoses / Procedures Referred By Contac t Referred To Contact [facility] Diagnoses Articular cartilage disorder of right knee Lucie Mora MD [address] [place] [address] Referral ID Status Reason Start Date Expiration Date V isits Requested Visits Authorized [id number] New Request 06/02/2021 06/27/2022 [facility] Diagnostic Procedure Only (Routine) - Closed Specialty Diagnoses / Procedures Referred By Contac t Referred To Contact XR IMAGING Diagnoses Acetabular labrum tear, right, initial encounter Procedures XR HIP GENERAL 3V PELV/AP/LAT RIGHT RADEX HIP UNILATERAL WITH PELVIS 2-3 VIEWS Kuldip Yousif MD [address] [place] [address] Xr Imaging Referral ID Status Reason Start Date Expiration Date V isits Requested Visits Authorized [id number] Closed Auto-Generate d Referral 06/18/2021 07/18/2022 1 1 [facility] for referral (narrative)* Outpatient Procedure (Routine) - Pending Review Specialty Diagnoses / Procedures Referred By Contac t Referred To Contact [facility] Diagnoses Gastroesophageal reflux disease without esophagitis Procedures EGD - THERAPEUTIC, EUS, OR TUBE INTERVENTIONS ESOPHAGOGASTRODUODENOSC [place] [address] [place] [address] [facility] [place] [address] [place] [address] Referral ID Status Reason Start Date Expiration Date Visits Requested Visits Authorized [id number] Pending Review Auto-Generat ed Referral 11/17/2021 11/17/2022 1 1 [facility] for referral (narrative)* Outpatient Procedure (Routine) - Authorized Specialty Diagnoses / Procedures [facility] Diagnoses Gastroesophageal reflux disease without esophagitis S/P laparoscopic sleeve gastrectomy Procedures PH IMPEDANCE INSERT OFF MEDS ESOPHGL FUNCJ G-ESOP RFLX IMPD ELBreanna Balderas APRN.CNP [address] [place] [address] [address] Referral ID Status Reason Start Date Expiration Date Visits Requested Visits Authorized [id number] Authorized Auto-Generat ed Referral 11/19/2021 11/18/2022 1 1 T [facility] for referral (narrative)* Outpatient Procedure (Routine) - Pending Review Specialty Diagnoses / Procedures [facility] Referred To Contact [facility] Diagnoses Regurgitation of food Gastroesophageal reflux disease, unspecified whether esophagitis present Procedures PH HUERTA INSERT OFF MEDS GASTROESOPHAG REFLX TEST W/TELEMTRY PH Breanna Hernandez APRN.OBGYN HOSPITALIST PHYSICIAN [address] [place] [address] [address] Referral ID Status Reason Start Date Expiration Date Visits Requested Visits Authorized [id number] Pending Review Auto-Generat ed Referral 12/17/2022 1 1 T [facility] for referral (narrative)* Outpatient Procedure (Routine) - Closed Specialty Diagnoses / Procedures [facility] Referred To Contact [facility] Diagnoses Gastroesophageal reflux disease without esophagitis Procedures EGD - THERAPEUTIC, EUS, OR TUBE INTERVENTIONS ESOPHAGOGASTRODUODENOSC OPY [place] [address] [place] [address] [address] Referral ID Status Reason Start Date Expiration Date V isits Requested Visits Authorized [id number] Closed Auto-Generate d Referral 11/17/2021 11/17/2022 1 1 [facility] for referral (narrative)* Outpatient Procedure (Routine) - Pending Review Specialty Diagnoses / Procedures Referred By Contac t Referred To [facility] Diagnoses Pre-op evaluation Procedures ECG COMPLETE ECG ROUTINE ECG W/LEAST 12 LDS W/I&R Ioana Hogan PA-C [address] [place] [address] [facility] [address] [address] Referral ID Status Reason Start Date Expiration Date Visits Requested Visits Authorized [id number] Pending Review Auto-Generat ed Referral 01/28/2023 1 1 [facility] for referral (narrative)* Outpatient Procedure (Routine) - Authorized Specialty Diagnoses / Procedures Referred By Contac t Referred To Contact [facility] Diagnoses Esophageal dysphagia S/P gastric bypass Procedures EGD - THERAPEUTIC, EUS, OR TUBE INTERVENTIONS EGD BALLOON DILATION ESOPHAGUS <30 MM DIAM Breanna Stern APRN.CNP [address] [place] [address] [facility] Disease [place] [address] [place] [address] Referral ID Status Reason Start Date Expiration Date Visits Requested Visits Authorized [id number] Authorized Auto-Generat ed Referral 03/05/2022 03/05/2023 1 1 [facility] for referral (narrative)* Outpatient Procedure (Routine) - Closed Specialty Diagnoses / Procedures Referred By Contac t Referred To Contact [facility] Diagnoses Esophageal dysphagia S/P gastric bypass Procedures EGD - THERAPEUTIC, EUS, OR TUBE INTERVENTIONS EGD BALLOON DILATION ESOPHAGUS <30 MM DIAM Breanna Stern APRN.CNP [address] [place] [address] [address] Referral ID Status Reason Start Date Expiration Date V isits Requested Visits Authorized [id number] Closed Auto-Generate d Referral 03/05/2022 03/05/2023 1 1 [facility] for referral (narrative)* Outpatient Procedure (Routine) - Pending Review Specialty Diagnoses / Procedures [facility] Referred To Contact [facility] Diagnoses Constipation, unspecified constipation type Procedures [facility] ANORECTAL MANOMETRY ANORECTAL MANOMETRY Kasie Avalos MD [address] [place] [phone] [place] [phone] Referral ID Status Reason Start Date Expiration Date Visits Requested Visits Authorized [id number] Pending Review Auto-Generat ed Referral 07/22/2022 07/23/2023 1 1 [facility] for referral (narrative)* Diagnostic Procedure Only (Routine) - Pending Review Specialty Diagnoses / Procedures [facility] Referred To Contact XR IMAGING Diagnoses S/P bariatric surgery Gastroesophageal reflux disease, unspecified whether esophagitis present Procedures XR UPPER GI ROUTINE DOUBLE CONTRAST/AIR RADIOLOGIC EXAM UPR GI TRC DOUBLE CONTRAST STUDY Breanna Stern APRN.CNP [address] [place] [address] Xr Imaging Referral ID Status Reason Start Date Expiration Date Visits Requested Visits Authorized [id number] Pending Review Auto-Generat ed Referral 09/18/2022 10/18/2023 1 1 [facility] for referral (narrative)* Outpatient Procedure (Routine) - Authorized Specialty Diagnoses / Procedures [facility] Referred To Contact [facility] Diagnoses Epigastric pain Procedures EGD DIAGNOSTIC ESOPHAGOGASTRODUODENOSC OPY [place] [address] [place] [address] [facility] [place] [address] [place] [address] Referral ID Status Reason Start Date Expiration Date Visits Requested Visits Authorized [id number] Authorized Auto-Generat ed Referral 10/20/2022 10/21/2023 1 1 [facility] for referral (narrative)* Diagnostic Procedure Only (Routine) - Closed Specialty Diagnoses / Procedures Referred By Contac t Referred To Contact US IMAGING Diagnoses Nausea RUQ pain History of cholecystectomy Procedures US ABD RIGHT UPPER QUADRANT US ABDOMINAL REAL TIME W/[place] [address] [place] [phone] [facility] Referral ID Status Reason Start Date Expiration Date V isits Requested Visits Authorized [id number] Closed Auto-Generate d Referral 11/04/2022 12/04/2023 1 1 * Diagnostic Procedure Only (Routine) - Authorized Specialty Diagnoses / Procedures Referred By Contact Referred To Contact [facility] Diagnoses Nausea RUQ pain History of cholecystectomy Procedures NM HEPATOBILIARY W EF AND/OR RX HEPATOBIL SYST IMAG INC GB W/[place] [address] [place] [phone] [facility] [address] [place] [address] Referral ID Status Reason Start Date Expiration Date Visits Requested Visits Authorized [id number] Authorized Auto-Generat ed Referral 11/04/2022 12/04/2023 1 1 [facility] for referral (narrative)* Diagnostic Procedure Only (Routine) - Pending Review Specialty Diagnoses / Procedures Referred By Contac t Referred To Contact XR IMAGING Diagnoses Right knee pain, unspecified chronicity Procedures XR KNEE GENERAL 4V AP BOTH/PA BOTH/LAT/MERC RIGHT RADIOLOGIC EXAM KNEE COMPLETE 4/MORE VIEWS Agustin Salmeron PA-C [address] [place] [address] Xr Imaging [place] [address] Referral ID Status Reason Start Date Expiration Date Visits Requested Visits Authorized [id number] Pending Review Auto-Generat ed Referral 11/04/2022 12/04/2023 1 1 [facility] for referral (narrative)* Outpatient Procedure (Urgent) - Authorized Specialty Diagnoses / Procedures Referred By Contac t Referred To [facility] Diagnoses Chronic nausea RUQ pain Procedures US MESENTERIC ARTERY CMPLT VAS LAB DUP-SCAN ARTL TIARA ABDL/PEL/SCROT&/[place] [address] [place] [address] [facility] [address] [address] Referral ID Status Reason Start Date Expiration Date Visits Requested Visits Authorized [id number] Authorized Auto-Generat ed Referral 11/23/2022 11/23/2023 1 1 [facility] for referral (narrative)* Outpatient Procedure (Urgent) - Closed Specialty Diagnoses / Procedures Referred By Contac t Referred To Contact [facility] Diagnoses Chronic nausea RUQ pain Procedures US MESENTERIC ARTERY CMPLT VAS LAB DUP-SCAN ARTL TIARA ABDL/PEL/SCROT&/[place] [address] [place] [address] [address] Referral ID Status Reason Start Date Expiration Date V isits Requested Visits Authorized [id number] Closed Auto-Generate d Referral 11/23/2022 11/23/2023 1 1 [facility] for referral (narrative)* Diagnostic Procedure Only (Routine) - Closed Specialty Diagnoses / Procedures Referred By Jazmine hooks Referred To Contact US IMAGING Diagnoses Nausea RUQ pain History of cholecystectomy Procedures US ABD RIGHT UPPER QUADRANT US ABDOMINAL REAL [place] W/[place] [address] [place] [address] Us Imaging [facility] Referral ID Status Reason Start Date Expiration Date V isits Requested Visits Authorized [id number] Closed Auto-Generate d Referral 11/04/2022 12/04/2023 1 1 [facility] for visit NarrativeGeneral Surgery Referral UpdateNort Lucky Sort Other Reason for visit Narrative* Outpatient Procedure (Routine) - Closed Specialty Diagnoses / Procedures [facility] Referred To Contact [facility] Diagnoses Gastroesophageal reflux disease without esophagitis Procedures EGD - THERAPEUTIC, EUS, OR TUBE INTERVENTIONS ESOPHAGOGASTRODUODENOSC OPY [place] [address] [place] [phone] [facility] Disease [place] [phone] Referral ID Status Reason Start Date Expiration Date V isits Requested Visits Authorized [id number] Closed Auto-Generate d Referral 11/17/2021 11/17/2022 1 1 [facility] for visit Narrative* Outpatient Procedure (Routine) - Closed Specialty Diagnoses / Procedures [facility] Referred To Contact [facility] Diagnoses Esophageal dysphagia S/P gastric bypass Procedures EGD - THERAPEUTIC, EUS, OR TUBE INTERVENTIONS EGD BALLOON DILATION ESOPHAGUS <30 MM DIAM Breanna Stern, ROVING WEIGHT GAUGER.OBGYN HOSPITALIST PHYSICIAN [address] [place] [address] [facility] Disease [place] [id number] [place] [address] Referral ID Status Reason Start Date Expiration Date V isits Requested Visits Authorized [id number] Closed Auto-Generate d Referral 03/05/2022 03/05/2023 1 1 [facility] for visit Narrative* Outpatient Procedure (Urgent) - Closed Specialty Diagnoses / Procedures Referred By Jazmine hooks Referred [facility] Diagnoses Chronic nausea RUQ pain Procedures US MESENTERIC ARTERY CMPLT VAS LAB DUP-SCAN ARTL TIARA ABDL/PEL/SCROT&/[place] [address] [place] [address] [facility] [place] [address] [place] [address] Referral ID Status Reason Start Date Expiration Date V isits Requested Visits Authorized [id number] Closed Auto-Generate d Referral 11/23/2022 11/23/2023 1 1 [facility] for visit Narrative* Diagnostic Procedure Only (Routine) - Closed Specialty Diagnoses / Procedures Referred By Jazmine hooks Referred To Contact US IMAGING Diagnoses Nausea RUQ pain History of cholecystectomy Procedures US ABD RIGHT UPPER QUADRANT US ABDOMINAL REAL [place] W/[place] [address] [place] [address] [place] [address] Referral ID Status Reason Start Date Expiration Date V isits Requested Visits Authorized [id number] Closed Auto-Generate d Referral 11/04/2022 12/04/2023 1 1 [facility] Summary Purpose Family History No Family History Records FoundNo Family History Records FoundNo Family History Records FoundNo Family History Records FoundNo Family History Records Found No data available for this section No Family History Records FoundNo Family History Records FoundNo Family History Records FoundNo Family History Records FoundNo Family History Records FoundNo Family History Records Found No data available for this section No Family History Records FoundNo Family History Records FoundNo Family History Records FoundNo Family History Records FoundNo Family History Records FoundNo Family History Records Found Advance Directives No Advanced Directives Records FoundDocuments on File Type Date Recorded 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 Advance Directive(s) 03/13/2021 9:49 AM Advance Directive(s) 02/10/2021 12:29 PM Advance Directive(s) 12/31/2020 1:59 PM Advance Directive(s) 12/21/2020 5:27 PM Advance Directive(s) 08/20/2020 3:30 PM Advance Directive(s) 04/04/2020 9:48 AM Advance Directive(s) 04/04/2020 6:51 PM Advance Directive(s) 03/21/2020 3:37 PM Advance Directive(s) 03/12/2020 2:36 PM Advance Directive(s) 02/29/2020 3:15 PM Advance Directive(s) 01/31/2020 7:44 PM Advance Directive(s) 10/15/2019 12:52 PM Advance Directive(s) 10/13/2019 6:50 AM Advance Directive(s) 09/29/2019 3:00 PM Advance Directive(s) 09/28/2019 10:09 AM Documents on File Type Date Recorded 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 Advance Directive(s) 07/04/2021 4:13 PM Advance Directive(s) 03/13/2021 9:49 AM Advance Directive(s) 02/10/2021 12:29 PM Advance Directive(s) 12/31/2020 1:59 PM Advance Directive(s) 12/21/2020 5:27 PM Advance Directive(s) 08/20/2020 3:30 PM Advance Directive(s) 04/04/2020 9:48 AM Advance Directive(s) 04/04/2020 6:51 PM Advance Directive(s) 03/21/2020 3:37 PM Advance Directive(s) 03/12/2020 2:36 PM Advance Directive(s) 02/29/2020 3:15 PM Advance Directive(s) 01/31/2020 7:44 PM Advance Directive(s) 10/15/2019 12:52 PM Advance Directive(s) 10/13/2019 6:50 AM Advance Directive(s) 09/29/2019 3:00 PM Advance Directive(s) 09/28/2019 10:09 AM Documents on File Type Date Recorded 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 Advance Directive(s) 03/13/2021 9:49 AM Documents on File Type Date Recorded 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 Advance Directive(s) 03/13/2021 9:49 AM Latest Code Status on File Code Status Date Activated Date Inactivated Comments Full Code 11/22/2022 8:03 PM 11/23/2022 5:11 PM Question Answer Comments Full Code Order Discussed With: Patient Latest Code Status on File Code Status Date Activated Date Inactivated Comments Full Code 11/22/2022 8:03 PM 11/23/2022 5:11 PM Question Answer Comments Full Code Order Discussed With: Patient Latest Code Status on File Code Status Date Activated Date Inactivated Comments Full Code 11/22/2022 8:03 PM 11/23/2022 5:11 PM Question Answer Comments Full Code Order Discussed With: Patient Latest Code Status on File Code Status Date Activated Date Inactivated Comments Full Code 12/06/2022 9:37 PM 12/09/2022 8:48 PM Question Answer Comments Full Code Order Discussed With: Patient Code Status History Code Status Date Activated Date Inactivated Comments Full Code 11/22/2022 8:03 PM 11/23/2022 5:11 PM Question Answer Comments Full Code Order Discussed With: Patient Latest Code Status on File Code Status Date Activated Date Inactivated Comments Full Code 12/06/2022 9:37 PM 12/09/2022 8:48 PM Question Answer Comments Full Code Order Discussed With: Patient Code Status History Code Status Date Activated Date Inactivated Comments Full Code 11/22/2022 8:03 PM 11/23/2022 5:11 PM Question Answer Comments Full Code Order Discussed With: Patient Latest Code Status on File Code Status Date Activated Date Inactivated Comments Full Code 12/06/2022 9:37 PM 12/09/2022 8:48 PM Question Answer Comments Full Code Order Discussed With: Patient Code Status History Code Status Date Activated Date Inactivated Comments Full Code 11/22/2022 8:03 PM 11/23/2022 5:11 PM Question Answer Comments Full Code Order Discussed With: Patient Advance Directive Response Recorded Date/ Time Advance Directives No October 02, 2019 1:10pm Discharge Instructions * Attachments The following attachments cannot be sent through Care Everywhere. * Abdominal Pain with Follow Up in 24 Hours ([facility]) (Burmese) documented in this encounter Assessments Diagnosis Lower abdominal pain- Primary Abdominal pain, other specified site Reason for Referral Status Reason Specialty Diagnoses / Procedures Referre d By Contact Referred To Contact Closed Procedures US PELVIC WITH TRANSVAGINAL WITH DOPPLER Juanito Laird PA-C [address] [facility] [place] [address] Specialty Diagnoses / Procedures Referred By Contact Referred To Contact [facility] Diagnoses Tear of right acetabular labrum, subsequent encounter Procedures CONSULT TO PHYSICAL THERAPY PHYSICAL THERAPY EVALUATION HIGH COMPLEX 45 MINS Justine Shabazz PA-C [address] [place] [address] [facility] [place] [address] [place] [address] Referral ID Status Reason Start Date Expiration Date Visits Requested Visits Authorized [id number] Pending Review Auto-Generat ed Referral 06/23/2021 06/23/2022 1 1 Reason 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 - Please request Dr. Keven Gomez [phone] Diagnosis 1 Hernia (K46.9) Referral Organization [facility] Priscila Guo Referring Provider First Name Shanna Referring Provider Last Name Slade Referring Provider Specialty Nurse Ramona castañeda Referred Organization [facility] Referred Address [address],[place], [place],[address] Referred Provider Specialty General Surg ammon Referral Priority Routine Specialty Diagnoses / Procedures Referred By Jazmine hooks Referred To Contact Diagnoses S/P laparoscopic sleeve gastrectomy Procedures CONSULT TO BARIATRIC NUTRITION OFFICE/OUTPATIENT [facility] MDM 60-74 MINUTES Sabina Joy APRN.OBGYN HOSPITALIST PHYSICIAN [address] [place] [address] Referral ID Status Reason Start Date Expiration Date Visits Requested Visits Authorized [id number] Pending Review PCP Requested Referral 10/09/2021 10/09/2022 1 1 Specialty Diagnoses / Procedures Referred By Jazmine hooks Referred To Contact [facility] Diagnoses Gastroesophageal reflux disease, unspecified whether esophagitis present Bariatric surgery status Class 1 obesity with serious comorbidity and body mass index (BMI) of 31.0 to 31.9 in adult, unspecified obesity type S/P laparoscopic sleeve gastrectomy Procedures EGD BARIATRIC ESOPHAGOGASTRODUODENOSCO PY TRANSORAL DIAGNOSTIC Sabina Joy APRN.OBGYN HOSPITALIST PHYSICIAN [address] [place] [address] [facility] [address] [place] [address] Referral ID Status Reason Start Date Expiration Date Visits Requested Visits Authorized [id number] Pending Review Auto-Generat ed Referral 10/09/2021 10/09/2022 1 1 Specialty Diagnoses / Procedures Referred By Contac t Referred To Contact Diagnoses RICHAR (obstructive sleep apnea) Procedures CONSULT TO SLEEP MEDICINE - ADULT OFFICE/OUTPATIENT [facility] 60-74 MINUTES Sabina Joy APRN.OBGYN HOSPITALIST PHYSICIAN [address] [id number] Referral ID Status Reason Start Date Expiration Date Visits Requested Visits Authorized [id number] Authorized PCP Requested Referral 2 01/02/2023 1 1 Specialty Diagnoses / Procedures Referred By Contac t Referred To Contact [facility] Diagnoses S/P bariatric surgery Primary osteoarthritis involving multiple joints Procedures CONSULT TO PHYSICAL THERAPY PHYSICAL THERAPY EVALUATION HIGH COMPLEX 45 MINS Breanna Stern APRN.OBGYN HOSPITALIST PHYSICIAN [address] [phone] [facility] [place] [address] Referral ID Status Reason Start Date Expiration Date Visits Requested Visits Authorized [id number] Pending Review Auto-Generat ed Referral 2 02/03/2023 1 1 Specialty Diagnoses / Procedures Referred By Contac t Referred To Contact Endocrinology Diagnoses History of adrenal insufficiency Hypothyroidism, unspecified type Procedures CONSULT TO ENDOCRINOLOGY OFFICE/OUTPATIENT [facility] 60-74 MINUTES Ciara Bello PA-C [address] [place] [address] Referral ID Status Reason Start Date Expiration Date Visits Requested Visits Authorized [id number] Authorized PCP Requested Referral 06/12/2022 06/12/2023 1 1 Specialty Diagnoses / Procedures Referred By Contac t Referred To Contact Allergy Diagnoses Rash and nonspecific skin eruption Pain in eye, unspecified laterality Facial edema Procedures CONSULT TO ALLERGY/IMMUNOLOGY OFFICE/OUTPATIENT [facility] 60-74 MINUTES Bernardo Brenner MD [address] [phone] Referral ID Status Reason Start Date Expiration Date Visits Requested Visits Authorized [id number] Authorized PCP Requested Referral 07/28/2022 07/28/2023 1 1 Specialty Diagnoses / Procedures Referred By Contac t Referred To Contact CT IMAGING Diagnoses Generalized abdominal pain Procedures CTA ABD/PEL W IVCON CT ANGIO ABD&PLVIS CNTRST MTRL W/WO CNTRST Agustin Piper MD [address] [place] [address] [place] [address] Referral ID Status Reason Start Date Expiration Date Visits Requested Visits Authorized [id number] Authorized Auto-Generat ed Referral 3 01/17/2023 1 1 Medications Administered Section Inactive Administered Medications - up to 3 most recent administrations Medication Order MAR Action Action Date Dose Rate Site benzocaine 20% (TOPEX) TOPICAL, X (OR/PROCEDURE) PRN, Starting on Heena 12/25/21 at 0939, Until Heena 12/25/21 at 0939, Intraprocedure Given 12/25/2021 9:39 AM EST 1 [place] Meperidine (PF) injection (DEMEROL) X (OR/PROCEDURE) PRN, Starting on Heena 12/25/21 at 0938, Until Heena 12/25/21 at 0943, Intraprocedure Given 12/25/2021 9:43 AM EST 25 mg Given 12/25/2021 9:38 AM EST 50 mg midazolam (PF) injection (VERSED) INTRAVENOUS, X (OR/PROCEDURE) PRN, Starting on Heena 12/25/21 at 0938, Until Heena 12/25/21 at 0943, Intraprocedure Given 12/25/2021 9:43 AM EST 1 mg Given 12/25/2021 9:38 AM EST 3 mg Inactive Administered Medications - up to 3 most recent administrations Medication Order MAR Action Action Date Dose Rate Site NaCl 0.9% 2,000 mL iv bolus 2,000 mL, INTRAVENOUS, at 999 mL/hr, Administer over 2 Hours, ONCE, 1 dose, On Wed11/04/22 at 1100, Please place IV Please remove IV after infusion complete New Bag/Syringe/Bottle 11/04/2022 12:30 PM EDT 2,000 mL 999 mL/hr Chief Complaint and Reason for Visit Chief Complaint nausea, vomitng Additional Source Comments INFORMATION SOURCE (unrecogn ized section and content) DATE CREATED AUTHOR 09/11/2017 [facility] DATE CREATED AUTHOR AUTHOR'S ORGANIZ ATION 06/03/2021 [facility] DATE CREATED AUTHOR AUTHOR'S ORGANIZ ATION 06/24/2022 [facility] DATE CREATED AUTHOR AUTHOR'S ORGANIZ ATION 11/01/2022 [facility] DATE CREATED AUTHOR AUTHOR'S ORGANIZ ATION 11/07/2022 [facility] DATE CREATED AUTHOR AUTHOR'S ORGANIZ ATION 11/20/2022 [facility] DATE CREATED AUTHOR AUTHOR'S ORGANIZ ATION 11/22/2022 [facility] DATE CREATED AUTHOR AUTHOR'S ORGANIZ ATION 11/29/2022 [facility] DATE CREATED AUTHOR AUTHOR'S ORGANIZ ATION 11/29/2022 [facility] DATE CREATED AUTHOR AUTHOR'S ORGANIZ ATION 11/29/2022 [facility] DATE CREATED AUTHOR AUTHOR'S ORGANIZ ATION 12/16/2022 [facility] DATE CREATED AUTHOR AUTHOR'S ORGANIZ ATION 02/04/2023 [facility] DATE CREATED AUTHOR AUTHOR'S ORGANIZ ATION 02/12/2023 [facility] DATE CREATED AUTHOR AUTHOR'S ORGANIZ ATION 02/14/2023 [facility] DATE CREATED AUTHOR AUTHOR'S ORGANIZ ATION 02/18/2023 [facility] DATE CREATED AUTHOR AUTHOR'S ORGANIZ ATION 02/19/2023 [facility] DATE CREATED AUTHOR AUTHOR'S ORGANIZ ATION 02/21/2023 [facility] Reason for Visit (unrecogniz ed section and content) Reason Comments Abdominal Pain RUQ abdominal pain t hat is spreading across her back and into the left side. pt states that she does not have a gallbladder or appendix and has been treated by [facility] recently for bowel adhesions and it is just getting worse. 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 Reason Comments Follow-up Pt presents for fu o n rt knee pn, hx of steroid inj 12/09/20, still has swelling and pn, injection seemed to help some for a couple weeks, did PT at home but seemed to get worse, got repeat xrays from ortho surgeon, knee will swell up with any kind of activity and could not progress in PT, no painkillers b/c tylenol and ibu dont help, also worried about torn labrum in rt hip and not sure how it will affect knee Reason Comments Pain Reason Comments Schedule Surgery Reason Comments Pre-Op Visit Reason Comments Abdominal Pain LUQ, onset 5 days ag o, worse with eating Reason Comments Post Op Reason Comments Refill Request Reason Onset Date Comments Refill Request 08/22/2021 Reason Comments Reassessment Patient Education Reason Comments Dental Pain Onset few days ago - pt was seen at her dentist for impacted wisdom tooth. Fever 104 at home. Reason Comments Weight Problem Reason Comments Appointment Reason Comments Heartburn Reason Onset Date Comments Refill Request 11/17/2021 Refill Request 11/18/2021 Reason Comments Orders pH Impedence Reason Comments Orders Corrected EGD & Brav o orders Reason Comments Informed Consent IRB [id number] Reason Onset Date Comments Procedure 12/25/2021 HUERTA 48 Hour pH Capsule Placement Specialty Diagnoses / Procedures Referred By Jazmine t Referred To Contact [facility] Diagnoses Regurgitation of food Gastroesophageal reflux disease, unspecified whether esophagitis present Procedures PH HUERTA INSERT OFF MEDS GASTROESOPHAG REFLX TEST W/TELEMTRY PH ELTRD Breanna Stern, SLIM.OBGYN HOSPITALIST PHYSICIAN [address] [place] [address] [facility] [place] [address] Referral ID Status Reason Start Date Expiration Date V isits Requested Visits Authorized [id number] Closed Auto-Generate d Referral 12/25/2021 12/17/2022 1 1 Reason Onset Date Comments Procedure 01/01/2022 48 Hr HUERTA pH D ownload Reason Comments Weight Loss Surgery Reason Comments Schedule Surgery Lap. GJ revision Reason Comments Surgery Date Reason Comments Medication Question Reason Comments Post Op Reason Comments Patient Education Nutrition Counseling Reason Comments Follow Up Reason Comments Post Op Follow Up S/p lap revision sle dee dee to RYGB Reason Comments EGD Instructions Reason Comments Joint Pain Reason Comments Established Patient IBD follow up Reason Comments Med Change Request Reason Comments Eye Itching Both Eyes Reason Comments Medication Problem Motegrity Reason Comments New Patient Reason Comments Post Op 7 month post op slev e gastrectomy 01/29/22 Reason Comments Anxiety Depression Stress Specialty Diagnoses / Procedures Referred By Contac t Referred To Contact Psychology / ADULT PSYCHOLOGY Diagnoses Okay per Dr. Lebron Procedures VIDEO PSYC/PSYL EST Self Pablo Lebron, PSYD [address] [phone] Referral ID Status Reason Start Date Expiration Date V isits Requested Visits Authorized [id number] Outside PCP 09/21/2022 12/20/2022 1 1 Reason Comments Anxiety Stress Specialty Diagnoses / Procedures Referred By Contac t Referred To Contact Psychology / ADULT PSYCHOLOGY Diagnoses Follow up Procedures VIDEO PSYC/PSYL EST Pablo Lebron, PSYD [address] [facility] [address] [place] [address] Pablo Lebron, PSYD [address] [place] [address] Referral ID Status Reason Start Date Expiration Date V isits Requested Visits Authorized [id number] Pending Review 10/05/2022 01/03/2023 1 1 Reason Onset Date Comments Refill Request 10/15/2022 Reason Comments Patient Question Nausea & Vomiting Reason Comments Back Pain Complains of lower b ack pain and right leg pressure. Intermittent vomiting for two weeks, has been seen here a couple times. Reason Comments Abdominal Pain Reports has been see n a couple of times with CT scans showing possible kidney stones near [facility], here today because hands turned brown Reason Comments Follow Up Patient is present t jeyson with trouble eating and drinking x two weeks and has gotten worse Reason Comments Patient Update Reason Comments Radiology NM Reason Comments Surgery Rescheduled Reason Comments Patient Update Reason Comments Abdominal Pain Reason Comments Consult New Patient MAL consult Reason Comments Patient Update Orders Reason Comments Pain Reason Comments Pain Management Procedure Reason Comments missed call Reason Comments Patient Question Patient Update Altagracia Arnett RN - 01/30/2020 5:34 PM Jennifer Barker RN - 01/30/2020 5:15 PM Agustin Flores MD - 01/30/2020 1:37 PM Altagracia Antunez RN - 01/30/2020 1:33 PM EST ED Notes (unrecognized secti on and content) Pt placed on continuous pulse ox Pt with call light on, pt states that her nausea and pain are getting worse. Pt laying supine on cart, no distress noted. Emergency Department Report [facility] EMERGENCY DEPARTMENT Service Date:.01/30/20 PCP: Shanna June Chief Complaint: Chief Complaint Patient presents with Abdominal Pain RUQ abdominal pain that is spreading across her back and into the left side. pt states that she does not have a gallbladder or appendix and has been treated by [facility] recently for bowel adhesions and it is just getting worse. complains of nausea and diarrhea HPI Abbey Garcia is a 29 y.o. female presents to the ED today due to right upper quadrant abdominal pain. The patient has a history of both gallbladder resection and appendectomy with resulting adhesions that caused her trouble since then. She developed upper abdominal pain that radiates around to the right flank yesterday called her primary surgeon who said that she be checked out for partial small bowel obstruction that she has children at home so she went home throughout the night she's had continued nausea and upper quadrant pain that radiates around the right side to the right flank. She's had no fevers no diarrhea. She's been able to tolerate some oral liquids and solids but her appetite is very poor and she feels like the food triggers a spasming and increase in pain. Review of Systems: Review of Systems Constitutional: Negative for activity change, appetite change, fatigue and fever. HENT: Negative for ear pain, hearing loss, rhinorrhea, sneezing and trouble swallowing. Eyes: Negative for photophobia, pain, redness and visual disturbance. Respiratory: Negative for chest tightness, shortness of breath and wheezing. Cardiovascular: Negative for chest pain, palpitations and leg swelling. Gastrointestinal: Positive for abdominal distention and abdominal pain. Negative for anal bleeding, diarrhea and nausea. Endocrine: Negative for polydipsia, polyphagia and polyuria. Genitourinary: Negative for difficulty urinating, flank pain, hematuria and urgency. Musculoskeletal: Negative for back pain, joint swelling, neck pain and neck stiffness. Skin: Negative for color change, pallor and rash. Allergic/Immunologic: Negative for environmental allergies and immunocompromised state. Neurological: Negative for dizziness, seizures, syncope, weakness, numbness and headaches. Hematological: Negative for adenopathy. Does not bruise/bleed easily. Psychiatric/Behavioral: Negative for behavioral problems, confusion, dysphoric mood, hallucinations and self-injury. The patient is not nervous/anxious. Past Medical History: Past Medical History: Diagnosis Date Hypothyroidism PCOS (polycystic ovarian syndrome) Past Surgical History: Past Surgical History: Procedure Laterality Date APPENDECTOMY SECTION CHOLECYSTECTOMY Allergies: Allergies Allergen Reactions Codeine And Related Medications: Patient's Medications New Prescriptions HYDROCODONE-ACETAMINOPHEN 5-325 MG TABLET Take 1 tablet by mouth every 4 hours as needed for Moderate Pain for up to 15 doses. ONDANSETRON 4 MG TAB DISPERSIBLE TABLET Take 1 tablet by mouth every 8 hours as needed for Nausea for up to [address] on tongue Previous Medications LABETALOL 100 MG TAB TABLET Take 100 mg by mouth 2 times daily. LEVOTHYROXINE 100 MCG TAB TABLET Take 100 mcg by mouth daily. LIOTHYRONINE SODIUM (CYTOMEL PO) Take by mouth. METFORMIN 500 MG TAB TABLET Take 1,000 mg by mouth 2 times daily with meals. TOPIRAMATE 25 MG TABLET Take 25 mg by mouth 2 times daily. Modified Medications No medications on file Discontinued Medications No medications on file Family History: No family history on file. Social History: Social History Socioeconomic History Marital status: Spouse name: Not on file Number of children: Not on file Years of education: Not on file Highest education level: Not on file Occupational History Not on file Social Needs Financial resource strain: Not on file Food insecurity Worry: Not on file Inability: Not on file Transportation needs Medical: Not on file Non-medical: Not on file Tobacco Use Smoking status: Never Smoker Smokeless tobacco: Never Used Substance and Sexual Activity Alcohol use: No Drug use: No Sexual activity: Not on file Lifestyle Physical activity Days per week: Not on file Minutes per session: Not on file Stress: Not on file Relationships Social connections Talks on phone: Not on file Gets together: Not on file Attends yarsani service: Not on file Active member of club or organization: Not on file Attends meetings of clubs or organizations: Not on file Relationship status: Not on file Intimate partner violence Fear of current or ex partner: Not on file Emotionally abused: Not on file Physically abused: Not on file Forced sexual activity: Not on file Other Topics Concern Not on file Social History Narrative Not on file Physical Exam: Physical Exam Vitals signs and nursing note reviewed. Constitutional: General: She is not in acute distress. Appearance: She is well-developed. She is not diaphoretic. HENT: Head: Normocephalic and atraumatic. Nose: Nose normal. Mouth/Throat: Pharynx: No oropharyngeal exudate. Eyes: General: No scleral icterus. Right eye: No discharge. Left eye: No discharge. Conjunctiva/sclera: Conjunctivae normal. Pupils: Pupils are equal, round, and reactive to light. Neck: Musculoskeletal: Normal range of motion and neck supple. Thyroid: No thyromegaly. Vascular: No JVD. Cardiovascular: Rate and Rhythm: Normal rate and regular rhythm. Heart sounds: Normal heart sounds. No murmur. No friction rub. No gallop. Pulmonary: Effort: Pulmonary effort is normal. No respiratory distress. Breath sounds: Normal breath sounds. No wheezing or rales. Chest: Chest wall: No tenderness. Abdominal: General: Bowel sounds are normal. There is no distension. Palpations: Abdomen is soft. There is no mass. Tenderness: There is abdominal tenderness in the right upper quadrant. There is no guarding or rebound. Hernia: No hernia is present. Musculoskeletal: Normal range of motion. General: No tenderness or deformity. Skin: General: Skin is warm and dry. Coloration: Skin is not pale. Findings: No erythema or rash. Neurological: Mental Status: She is alert and oriented to person, place, and time. Cranial Nerves: No cranial nerve deficit. Motor: No abnormal muscle tone. Coordination: Coordination normal. Psychiatric: Behavior: Behavior normal. Thought Content: Thought content normal. Judgment: Judgment normal. Vital Signs During ED Visit Patient Vitals for the past 24 hrs: BP Temp Temp src Pulse Resp SpO2 Height 01/30/20 1615 130/62 81 18 100 % 01/30/20 1325 100 % 01/30/20 1322 1.676 m (5' 6 ) 01/30/20 1316 149/83 97.8 F (36.6 C) Oral 98 20 Orders/Results: Orders Placed This Encounter CT ABDOMEN/PELVIS WITH CONTRAST CHEM 7 (LYTES,BUN,CREA,GLUC) HEPATIC FUNCTION PANEL LIPASE CBC, EDIF, PLATELET topiramate 25 MG tablet sodium chloride 0.9% IV solution 1,000 mL ondansetron 4mg/2ml (ZOFRAN) injection 4 mg iohexol (OMNIPAQUE) 350 MG/ML injection 75 mL sodium chloride 0.9% IV solution 75 mL ondansetron 4mg/2ml (ZOFRAN) injection 4 mg fentaNYL (SUBLIMAZE) injection 50 mcg ondansetron 4 MG Tab Dispersible tablet hydroCODone-acetaminophen 5-325 MG tablet URINALYSIS, MACRO HCG QUALITATIVE, URINE Results for orders placed or performed during the hospital encounter of 01/30/20 CHEM 7 (LYTES,BUN,CREA,GLUC) Result Value Ref Range GLUCOSE 78 70 - 100 MG/DL BUN 8 7 - 20 MG/DL CREATININE SERUM 0.67 0.52 - 1.04 MG/DL SODIUM 138 136 - 145 MMOL/L POTASSIUM 3.8 3.5 - 5.1 MMOL/L CHLORIDE 106 98 - 107 MMOL/L CARBON DIOXIDE (CO2) 20 (L) 22 - 30 MMOL/L ESTIMATED GFR, NON AMER >60 ml/min/1.73sq.m ESTIMATED GFR, >60 ml/min/1.73sq.m GFR COMMENT Average GFR for 30-39 years old = 109. HEPATIC FUNCTION PANEL Result Value Ref Range ALBUMIN 4.6 3.5 - 5.0 G/DL BILIRUBIN, TOTAL 0.5 0.2 - 1.2 MG/DL ALKALINE PHOSPHATASE 52 38 - 126 IU/L AST 31 15 - 41 IU/L BILIRUBIN, DIRECT 0.0 0.0 - 0.2 MG/DL PROTEIN, TOTAL 7.7 6.3 - 8.2 GM/DL ALT 18 14 - 54 IU/L LIPASE Result Value Ref Range LIPASE 33 23 - 300 U/L CBC, EDIF, PLATELET Result Value Ref Range WBC (WHITE BLOOD COUNT) 5.7 3.6 - 11.0 10*3/uL RBC 4.50 4.0 - 5.4 10*6/uL HEMOGLOBIN (HGB) 12.7 12.0 - 16.0 G/DL HEMATOCRIT (HCT) 39.4 36.0 - 48.0 % MEAN CELL VOLUME 87.6 80.0 - 100.0 FL Mean Cell HGB 28.3 26.0 - 35.0 PG MEAN CELL HGB CONCENTRATION 32.3 27.0 - 37.0 G/DL RBC DISTRIBUTION 15.2 (H) 11.5 - 14.5 % PLATELET COUNT 277 130.0 - 400.0 10*3/uL MEAN PLATELET VOLUME 9.2 7.4 - 11.0 FL DIFFERENTIAL TYPE AUTO DIFF % NEUTROPHILS 65.6 37.0 - 75.0 % LYMPHOCYTE 25.8 20.0 - 55.0 % MONOCYTE % 5.6 0.0 - 10.0 % EOSINOPHIL % 2.4 0.0 - 11.0 % BASOPHIL % 0.6 0.0 - 2.0 % Absolute Neutrophil Count 3.7 1.4 - 6.5 10*3/uL LYMPHOCYTES, ABSOLUTE 1.50 1.2 - 3.4 10*3/uL MONOCYTES, ABSOLUTE 0.3 0.0 - 0.7 10*3/uL ABSOLUTE EOSINOPHIL COUNT 0.10 0.0 - 0.7 10*3/uL ABSOLUTE BASOPHIL COUNT 0.0 0.0 - 0.2 10*3/uL URINALYSIS, MACRO Result Value Ref Range COLOR, URINE YELLOW YELLOW APPEARANCE, URINE CLEAR CLEAR SPECIFIC GRAVITY, URINE 1.015 1.010 - 1.025 PH URINE 7.5 (H) 5.0 - 7.0 PROTEIN, URINE NEGATIVE NEGATIVE mg/dl GLUCOSE, URINE NEGATIVE NEGATIVE mg/dl KETONES, URINE NEGATIVE NEGATIVE mg/dl BILIRUBIN, URINE NEGATIVE NEGATIVE BLOOD, URINE DIPSTICK NEGATIVE NEGATIVE NITRITES, URINE NEGATIVE NEGATIVE UROBILINOGEN, URINE 0.2 0.2 - 1.0 E.U./dL LEUKOCYTE ESTERASE, URINE NEGATIVE NEGATIVE HCG QUALITATIVE, URINE Result Value Ref Range HCG, QUALITATIVE, URINE NEGATIVE NEGATIVE Radiographic Imaging CT ABDOMEN/PELVIS WITH CONTRAST Final Result IMPRESSION: 1. Scattered fluid throughout nondilated small bowel may correlate with enteritis or mild ileus pattern. No bowel obstruction. 2. Left ovarian cyst measures 4.7 cm. Pelvic ultrasound could be considered, if clinical symptoms warrant. 3. Hepatic cysts, unchanged. 4. Prior cholecystectomy and appendectomy. 2 Moderate Sedation Procedure: No Procedures: Procedures ED Summary/MDM CT scan shows a mild ileus pattern with no signs of obstruction. Patient was observed in the emergency department for couple hours she did not progressed and vomiting. She required a second dose of Zofran and a fluid bolus. She felt stable at that time and I discussed admission versus discharge to home with follow-up with her primary physician within 24 hours and she agreed to go home I provided her with a prescription of Zofran and some Hines to help with some of the discomfort. He instructed her to avoid solid food for the next 48-36 hours and try to get in touch with her surgeon. Recommended she return to emergency department for vomiting or any other increase in pain or fever. CT scan is consistent with ileus and we'll do a trial of bowel rest at home she is given a rest of the week off for work Clinical Impression: 1. Lower abdominal pain No follow-ups on file. New Prescriptions HYDROCODONE-ACETAMINOPHEN 5-325 MG TABLET Take 1 tablet by mouth every 4 hours as needed for Moderate Pain for up to 15 doses. ONDANSETRON 4 MG TAB DISPERSIBLE TABLET Take 1 tablet by mouth every 8 hours as needed for Nausea for up to [address] on tongue Discontinued Medications No medications on file An After Visit Summary was printed and given to the patient with above information. . . Agustin Gustafson MD 01/30/[address] Gustafson at the bedside documented in this encounter Scheduled Active and Recently Administ ered Medications (unrecognized section and content) Medication Order 06/30/2020 07/01/2020 07/02/2020 dicyclomine (BENTYL) injection 20 mg (COMPLETED) 20 mg, Intramuscular, ONCE, 1 dose, On Wed07/02/20 at 1400 1411 (Given - Provid er: Nabila Childs RN) hydroCODone-acetaminophen (NORCO) 5-325 MG per tablet 2 tablet (COMPLETED) 2 tablet, Oral, ONCE, 1 dose, On Wed07/02/20 at 1545, Maximum dose of acetaminophen is 4000 mg from all sources in 24 hours. 1540 (Given - Provid er: Nabila Childs RN) ketorolac (TORADOL) injection 15 mg (COMPLETED) 15 mg, Intravenous, ONCE, 1 dose, On Wed07/02/20 at 1400 1412 (Given - Provid er: Nabila Childs RN) ondansetron 4mg/2ml (ZOFRAN) injection 4 mg (COMPLETED) 4 mg, Intravenous, ONCE, 1 dose, On Wed07/02/20 at 1400 1412 (Given - Provid er: Nabila Childs RN) ondansetron 4mg/2ml (ZOFRAN) injection 4 mg (COMPLETED) 4 mg, Intravenous, ONCE, 1 dose, On Wed07/02/20 at 1615 1548 (Given - Provid er: Nabila Childs RN) sodium chloride 0.9% IV solution 1,000 mL (COMPLETED) 1,000 mL, Intravenous, ONCE, 1 dose, On Wed07/02/20 at 1400 1423 ($$New Bag$$ - Provider: Nabila Childs RN)1644 (Stopped - Provider: Nabila Childs RN) Scheduled Medication Order 07/25/2021 07/26/2021 07/27/2021 0.9 % sodium chloride bolus (COMPLETED) 500 mL (5.65 mL/kg), IntraVENous, at 500 mL/hr, Administer over 1 Hours, ONCE, On Wed07/27/21 at 1030, For 1 dose 1108 (New Bag - Prov ider: Shanna Manning RN)1249 (Stopped - Provider: Shanna Manning RN) famotidine (PEPCID) 20 mg in sodium chloride (PF) 10 mL injection (COMPLETED) 20 mg, IntraVENous, ONCE, 1 dose, On Wed07/27/21 at 1400, IV Push over minimum of 2 minutes - Dilute with 10 mL NS 1405 (Given - Provid er: Shanna Manning RN) fentaNYL (SUBLIMAZE) injection 25 mcg (COMPLETED) 25 mcg, IntraVENous, ONCE, 1 dose, On Wed07/27/21 at 1030, If oral and IV narcotics ordered, use oral first and only use IV if oral is ineffective or cannot take oral. Do Not give oral and IV within 1 hour of each other unless specifically ordered. 1110 (Given - Provid er: Shanna Manning RN) fentaNYL (SUBLIMAZE) injection 25 mcg (COMPLETED) 25 mcg, IntraVENous, ONCE, 1 dose, On 07/27/21 at 1230, If oral and IV narcotics ordered, use oral first and only use IV if oral is ineffective or cannot take oral. Do Not give oral and IV within 1 hour of each other unless specifically ordered. 1249 (Given - Provid er: Shanna Manning RN) ondansetron (ZOFRAN) injection 4 mg (COMPLETED) 4 mg, IntraVENous, ONCE, 1 dose, On 07/27/21 at 1030 1109 (Given - Provid er: Shanna Manning RN) ondansetron (ZOFRAN) injection 4 mg (COMPLETED) 4 mg, IntraVENous, ONCE, 1 dose, On 07/27/21 at 1230 1249 (Given - Provid er: Shanna Manning RN) PRN Medication Order 07/25/2021 07/26/2021 07/27/2021 iopamidol (ISOVUE-370) 76 % injection 75 mL (COMPLETED) 75 mL, IntraVENous, IMG ONCE PRN, 1 dose, Starting on 07/27/21 at 1212, Until 07/27/21 at 1219, Other 1219 (Given - Provid er: Sravani Victoria) Scheduled Medication Order 08/28/2021 08/29/2021 08/30/2021 bupivacaine-EPINEPHrine PF (MARCAINE-w/EPINEPHRINE) 0.5% -1: injection 10 mL (COMPLETED) 10 mL, Dental, ONCE, 1 dose, On 08/30/21 at 0400 0412 (Given by Other - Provider: Devyn Gottlieb RN - Comment: Given by Dr. Atwood.) clindamycin (CLEOCIN) capsule 450 mg (COMPLETED) 450 mg, Oral, ONCE, 1 dose, On 08/30/21 at 0400, Antimicrobial Indications: Other, Other Abx Indication: Dental Infection 0404 (Given - Provid er: Devyn Gottlieb RN) ketorolac (TORADOL) injection 30 mg (COMPLETED) Ketorolac is contraindicated in patients with advanced renal impairment and in patients at risk of renal failure due to volume depletion. For 65 years of age and older OR weight less than 50 kg, use 15 mg IV every 6 hours; MAX dose: 60 mg/day. Dose greater than 30 mg must be administered via intramuscular route. Do not administer for more than 5 days., 30 mg, IntraMUSCular, ONCE, 1 dose, On 08/30/21 at 0400 0405 (Given - Provid er: Devyn Gottlieb RN) Scheduled Medication Order 10/29/2022 10/30/202210/31/2022 ketorolac (TORADOL) injection 30 mg (COMPLETED) 30 mg, IntraVENous, ONCE, 1 dose, On 10/31/22 at 0745, Do not administer for more than 5 days. 0754 (Given - Provid er: Faviola Scott RN) prochlorperazine (COMPAZINE) injection 10 mg (COMPLETED) 10 mg, IntraVENous, ONCE, 1 dose, On 10/31/22 at 0745, If administering IV push, administer at a maximum rate of 5 mg/minute. 0754 (Given - Provid er: Faviola Scott RN) Scheduled Medication Order 10/31/2022 11/01/2022 11/02/2022 diphenhydrAMINE (BENADRYL) injection 50 mg (COMPLETED) 50 mg, Intravenous, ONCE, 1 dose, On 11/02/22 at 1130 1113 (Given - Provid er: Agustin Flores RN) Metoclopramide (REGLAN) injection 10 mg (COMPLETED) 10 mg, Intravenous, ONCE, 1 dose, On 11/02/22 at 1130 1113 (Given - Provid er: Agustin Flores RN) Ondansetron 4mg/2ml (ZOFRAN) injection 4 mg (COMPLETED) 4 mg, Intravenous, ONCE, 1 dose, On 11/02/22 at 1400 1319 (Given - Provid er: Agustin Flores, DEE) Sodium chloride 0.9% IV solution 2,000 mL (COMPLETED) 2,000 mL, Intravenous, ONCE, 1 dose, On 11/02/22 at 1130 1112 ($$New Bag$$ - Provider: Agustin Flores, DEE)1320 (Stopped - Provider: Agustin Flores, DEE) Care Teams (unrecognized sec tion and content) Chocolate Molder Relationship Specialty Start Date End Date Shanna June FNP [address] [place] [address] PCP - General Nurse Practitioner - Family 01/30/20 Chocolate Molder Relationship Specialty Start Date End Date Shanna June CNP [address] [place] [address] PCP - General Family Practice 01/31/20 Antelmo Davey [address] [place] [address] (Fax) 09/25/19 [place] [address] [place] [address] Consulting General Surgery 09/25/19 Shanna June CNP [address] [place] [address] Referring Family Practice 10/19/19 Chocolate Molder Relationship Specialty Start Date End Date Shanna June CNP [address] [place] [address] PCP - General Family Practice 01/31/20 Antelmo Davey MD [address] [place] [facility] [address] (Fax) 09/25/19 [place] [address] [place] [address] Consulting General Surgery 09/25/19 Shanna June CNP [address] [place] [address] Referring Family Practice 10/19/19 Chocolate Molder Relationship Specialty Start Date End Date Shanna June CNP [address] [place] [address] PCP - General Family Practice 01/31/20 Antelmo Davey MD [address] [place] [facility] [address] (Fax) 09/25/19 [place] [address] [place] [address] Consulting General Surgery 09/25/19 Shanna June CNP [address] [place] [address] Referring Family Practice 10/19/19 Chocolate Molder Relationship Specialty Start Date End Date Shanna June CNP [address] [place] [address] PCP - General Family Practice 01/31/20 Antelmo Davey MD [address] [place] [address] (Fax) 09/25/19 [place] [address] [place] [address] Consulting General Surgery 09/25/19 Shanna June CNP [address] [place] [address] Referring Family Practice 10/19/19 Chocolate Molder Relationship Specialty Start Date End Date Wally Foley [address] [place] [address] PCP - General Specialist 07/27/21 Chocolate Molder Relationship Specialty Start Date End Date Shanna June CNP [address] [place] [address] PCP - General Family Practice 01/31/20 Antelom Davey MD [address] [place] [facility] [place] [place] [address] (Fax) 09/25/19 [place] [address] [place] [address] Consulting General Surgery 09/25/19 Shanna June CNP [address] [place] [address] Referring Family Practice 10/19/19 Chocolate Molder Relationship Specialty Start Date End Date Shanna June CNP [address] [place] [address] PCP - General Family Practice 01/31/20 Antelmo Davey MD [address] [place] [address] (Fax) 09/25/19 [place] [address] [place] [address] Consulting General Surgery 09/25/19 Shanna June, [facility] [address] [place] [address] Referring Family Practice 10/19/19 Chocolate Molder Relationship Specialty Start Date End Date Shanna June CNP [address] [place] [address] PCP - General Family Practice 01/31/20 Antelmo Davey MD [address] [place] [place] [address] (Fax) 09/25/[address] [place] [address] [facility] [place] [address] Consulting General Surgery 09/25/19 Shanna June, OBGYN HOSPITALIST PHYSICIAN [address] [place] [address] Referring Family Practice 10/19/19 Chocolate Molder Relationship Specialty Start Date End Date Shanna June CNP [address] [place] [address] PCP - General Family Practice 01/31/20 Antelmo Davey MD [address] [place] [address] (Fax) 09/25/[address] [place] [address] [facility] [place] [address] Consulting General Surgery 09/25/19 Shanna June CNP [address] [place] [address] Referring Family Practice 10/19/19 Chocolate Molder Relationship Specialty Start Date End Date Shanna June CNP [address] [place] [address] PCP - General Family Practice 01/31/20 Antelmo Davey MD [address] [place] [place] [place] [address] (Fax) 09/25/19 [place] [address] [place] [address] Consulting General Surgery 09/25/19 Shanna June CNP [address] [place] [address] Referring Family Practice 10/19/19 Chocolate Molder Relationship Specialty Start Date End Date Shanna June CNP [address] [place] [address] PCP - General Family Practice 01/31/20 Antelmo Davey MD [address] [place] [facility] [place] [address] (Fax) 09/25/19 [place] [address] [facility] [place] [address] Consulting General Surgery 09/25/19 Shanna June, OBGYN HOSPITALIST PHYSICIAN [address] [place] [address] Referring Family Practice 10/19/19 Chocolate Molder Relationship Specialty Start Date End Date Wally Foley [address] [place] [address] PCP - General Specialist 07/27/21 Chocolate Molder Relationship Specialty Start Date End Date SladeShanna OBGYN HOSPITALIST PHYSICIAN [address] [place] [address] PCP - General Family Practice 01/31/20 Antelmo Davey MD [address] [place] [place] [place] [address] (Fax) 09/25/19 [place] [address] [place] [address] Consulting General Surgery 09/25/19 SladeShanna, OBGYN HOSPITALIST PHYSICIAN [address] [place] [address] Referring Family Practice 10/19/19 Chocolate Molder Relationship Specialty Start Date End Date SladeShannaBETH [address] [place] [address] PCP - General Family Practice 01/31/20 Antelmo Davey MD [address] [place] [place] [place] [address] (Fax) 09/25/19 [place] [address] [place] [address] Consulting General Surgery 09/25/19 Shanna June CNP [address] [place] [address] Referring Family Practice 10/19/19 Chocolate Molder Relationship Specialty Start Date End Date SladeDenverSahnnaBETH tomlin [address] [place] [address] PCP - General Family Practice 01/31/20 Antelmo Davey MD [address] [place] [address] (Fax) 09/25/19 [place] [address] [place] [address] Consulting General Surgery 09/25/19 Shanna June CNP [address] [place] [address] Referring Family Practice 10/19/19 Chocolate Molder Relationship Specialty Start Date End Date Shanna June CNP [address] [place] [address] PCP - General Family Practice 01/31/20 Antelmo Davey MD [address] [place] [address] (Fax) 09/25/19 [place] [address] [place] [address] Consulting General Surgery 09/25/19 Shanna June CNP [address] [place] [address] Referring Family Practice 10/19/19 Chocolate Molder Relationship Specialty Start Date End Date Shanna June CNP [address] [place] [address] PCP - General Family Medicine 01/31/20 Antelmo Davey MD [address] [place] [place] [place] [address] (Fax) 09/25/19 [place] [address] [place] [address] Consulting General Surgery 09/25/19 Shanna June CNP [address] [place] [address] Referring Family Medicine 10/19/19 Chocolate Molder Relationship Specialty Start Date End Date Shanna June CNP [address] [place] [address] PCP - General Family Medicine 01/31/20 Antelmo Davey MD [address] [place] [address] (Fax) 09/25/19 [place] [address] [place] [address] Consulting General Surgery 09/25/19 Shanna June, [facility] [address] [place] [address] Referring Family Medicine 10/19/19 Chocolate Molder Relationship Specialty Start Date End Date Shanna June CNP [address] [place] [address] PCP - General Family Medicine 01/31/20 Antelmo Davey MD [address] [place] [address] (Fax) 09/25/[address] [place] [address] [facility] [place] [address] Consulting General Surgery 09/25/19 Shanna June, OBGYN HOSPITALIST PHYSICIAN [address] [place] [address] Referring Family Medicine 10/19/19 Chocolate Molder Relationship Specialty Start Date End Date Shanna June CNP [address] [place] [address] PCP - General Family Medicine 01/31/20 Antelmo Davey MD [address] [place] [address] (Fax) 09/25/19 [place] [address] [place] [address] Consulting General Surgery 09/25/19 Shanna June CNP [address] [place] [address] Referring Family Medicine 10/19/19 Chocolate Molder Relationship Specialty Start Date End Date SladeShanna BETH [address] [place] [address] PCP - General Family Medicine 01/31/20 Antelmo Davey MD [address] [place] [address] (Fax) 09/25/19 [place] [address] [place] [address] Consulting General Surgery 09/25/19 Shanna June CNP [address] [place] [address] Referring Family Medicine 10/19/19 Chocolate Molder Relationship Specialty Start Date End Date Shanna June CNP [address] [place] [address] PCP - General Family Medicine 01/31/20 Antelmo Davey MD [address] [place] [address] (Fax) 09/25/19 [place] [address] [place] [address] Consulting General Surgery 09/25/19 Shanna June CNP [address] [place] [address] Referring Family Medicine 10/19/19 Chocolate Molder Relationship Specialty Start Date End Date Shanna June CNP [address] [place] [address] PCP - General Family Medicine 01/31/20 Antelmo Davey MD [address] [place] [address] (Fax) 09/25/19 [place] [address] [place] [address] Consulting General Surgery 09/25/19 Shanna June, OBGYN HOSPITALIST PHYSICIAN [address] [place] [address] Referring Family Medicine 10/19/19 Chocolate Molder Relationship Specialty Start Date End Date Shanna June, OBGYN HOSPITALIST PHYSICIAN [address] [place] [address] PCP - General Family Medicine 01/31/20 Antelmo Davey MD [address] [place] [facility] [address] (Fax) 09/25/19 [place] [address] [place] [address] Consulting General Surgery 09/25/19 Shanna June, OBGYN HOSPITALIST PHYSICIAN [address] [place] [address] Referring Family Medicine 10/19/19 Chocolate Molder Relationship Specialty Start Date End Date Shanna June, OBGYN HOSPITALIST PHYSICIAN [address] [place] [address] PCP - General Family Medicine 01/31/20 Antelmo Davey MD [address] [place] [facility] [address] (Fax) 09/25/19 [place] [address] [place] [address] Consulting General Surgery 09/25/19 Slade Shanna, OBGYN HOSPITALIST PHYSICIAN [address] [place] [address] Referring Family Medicine 10/19/19 Chocolate Molder Relationship Specialty Start Date End Date Slade Shanna, OBGYN HOSPITALIST PHYSICIAN [address] [place] [address] PCP - General Family Medicine 01/31/20 Antelmo Davey MD [address] [place] [address] (Fax) 09/25/[address] [place] [address] [facility] [place] [address] Consulting General Surgery 09/25/19 Shanna June, OBGYN HOSPITALIST PHYSICIAN [address] [place] [address] Referring Family Medicine 10/19/19 Chocolate Molder Relationship Specialty Start Date End Date Shanna June, OBGYN HOSPITALIST PHYSICIAN [address] [place] [address] PCP - General Family Medicine 01/31/20 Antelmo Davey MD [address] [place] [address] (Fax) 09/25/[address] [place] [address] [facility] [place] [address] Consulting General Surgery 09/25/19 Shanna June, OBGYN HOSPITALIST PHYSICIAN [address] [place] [address] Referring Family Medicine 10/19/19 Chocolate Molder Relationship Specialty Start Date End Date SladeShanna, OBGYN HOSPITALIST PHYSICIAN [address] [place] [address] PCP - General Family Medicine 01/31/20 Antelmo Davey MD [address] [place] [place] [address] 09/25/19 [place] [address] [place] [address] Consulting General Surgery 09/25/19 Shanna June CNP [address] [place] [address] Referring Family Medicine 10/19/19 Chocolate Molder Relationship Specialty Start Date End Date Wally Foley MD [address] [facility] [place] [address] PCP - General Family Medicine 01/19/22 Antelmo Davey MD [address] [place] [place] [place] [address] (Fax) 09/25/19 [place] [address] [place] [address] Consulting General Surgery 09/25/19 Shanna June, OBGYN HOSPITALIST PHYSICIAN [address] [place] [address] Referring Family Medicine 10/19/19 Chocolate Molder Relationship Specialty Start Date End Date Wally Foley MD [address] [place] [address] PCP - General Family Medicine 01/19/22 Antelmo Davey MD [address] [place] [address] (Fax) 09/25/19 [place] [address] [place] [address] Consulting General Surgery 09/25/19 Shanna June, OBGYN HOSPITALIST PHYSICIAN [address] [place] [address] Referring Family Medicine 10/19/19 Chocolate Molder Relationship Specialty Start Date End Date Wally Foley MD [address] [place] [address] PCP - General Family Medicine 01/19/22 Antelmo Davey MD [address] [place] [address] (Fax) 09/25/19 [place] [address] [place] [address] Consulting General Surgery 09/25/19 Shanna June, OBGYN HOSPITALIST PHYSICIAN [address] [place] [address] Referring Family Medicine 10/19/19 Chocolate Molder Relationship Specialty Start Date End Date Wally Foley MD [address] [place] [address] PCP - General Family Medicine 01/19/22 Antemlo Davey MD [address] [place] [address] (Fax) 09/25/19 [place] [address] [place] [address] Consulting General Surgery 09/25/19 Shanna June, OBGYN HOSPITALIST PHYSICIAN [address] [place] [address] Referring Family Medicine 10/19/19 Chocolate Molder Relationship Specialty Start Date End Date Wally Foley MD [address] [place] [address] PCP - General Family Medicine 01/19/22 Antelmo Davey MD [address] [place] [address] (Fax) 09/25/19 [place] [address] [place] [address] Consulting General Surgery 09/25/19 Shanna June, OBGYN HOSPITALIST PHYSICIAN [address] [place] [address] Referring Family Medicine 10/19/19 Chocolate Molder Relationship Specialty Start Date End Date Wally Foley MD [address] [place] [address] PCP - General Family Medicine 01/19/22 Antelmo Davey MD [address] [place] [facility] [address] 09/25/19 [place] [address] [place] [address] Consulting General Surgery 09/25/19 Shanna June, OBGYN HOSPITALIST PHYSICIAN [address] [place] [address] Referring Family Medicine 10/19/19 Chocolate Molder Relationship Specialty Start Date End Date Wally Foley MD [address] [facility] [place] [address] PCP - General Family Medicine 01/19/22 Antelmo Davey MD [address] [place] [facility] [address] (Fax) 09/25/19 [place] [address] [place] [address] Consulting General Surgery 09/25/19 Shanna June, OBGYN HOSPITALIST PHYSICIAN [address] [place] [address] Referring Family Medicine 10/19/19 Chocolate Molder Relationship Specialty Start Date End Date Wally Foley MD [address] [facility] [place] [address] PCP - General Family Medicine 01/19/22 Antelmo Davey MD [address] [place] [facility] [address] (Fax) 09/25/19 [place] [address] [place] [address] Consulting General Surgery 09/25/19 Shanna June, OBGYN HOSPITALIST PHYSICIAN [address] [place] [address] Referring Family Medicine 10/19/19 Chocolate Molder Relationship Specialty Start Date End Date Wally Foley MD [address] [place] [address] PCP - General Family Medicine 01/19/22 Antelmo Davey MD [address] [place] [address] (Fax) 09/25/19 [place] [address] [place] [address] Consulting General Surgery 09/25/19 Shanna June, OBGYN HOSPITALIST PHYSICIAN [address] [place] [address] Referring Family Medicine 10/19/19 Chocolate Molder Relationship Specialty Start Date End Date Wally Foley MD [address] [place] [address] PCP - General Family Medicine 01/19/22 Antelmo Davey MD [address] [place] [address] (Fax) 09/25/19 [place] [address] [place] [address] Consulting General Surgery 09/25/19 Shanna June, OBGYN HOSPITALIST PHYSICIAN [address] [place] [address] Referring Family Medicine 10/19/19 Chocolate Molder Relationship Specialty Start Date End Date Wally Foley MD [address] [place] [address] PCP - General Family Medicine 01/19/22 Antelmo Davey MD [address] [place] [address] 09/25/19 [place] [address] [place] [address] Consulting General Surgery 09/25/19 Shanna June, OBGYN HOSPITALIST PHYSICIAN [address] [place] [address] Referring Family Medicine 10/19/19 Chocolate Molder Relationship Specialty Start Date End Date Wally Foley MD [address] [place] [address] PCP - General Family Medicine 01/19/22 Antelmo Davey MD [address] [place] [facility] [address] (Fax) 09/25/[address] [place] [address] [facility] [place] [address] Consulting General Surgery 09/25/19 Shanna June, OBGYN HOSPITALIST PHYSICIAN [address] [place] [address] Referring Family Medicine 10/19/19 Ag[address] Valentino [address] [place] [address] [address] Referring Family Medicine 05/13/22 Chocolate Molder Relationship Specialty Start Date End Date Jaquan Morrow [address] [place] [address] PCP - General 06/16/22 Antelmo Davey MD [address] [place] [address] (Fax) 09/25/[address] [place] [address] [facility] [place] [address] Consulting General Surgery 09/25/19 Slade Shanna, OBGYN HOSPITALIST PHYSICIAN [address] [place] [address] Referring Family Medicine 10/19/19 Agustin Valentino [address] [facility] [address] [place] [address] Referring Family Medicine 05/13/22 Chocolate Molder Relationship Specialty Start Date End Date Jaquan Morrow [address] [place] [address] PCP - General 06/16/22 Antelmo Davey MD [address] [place] [address] (Fax) 09/25/[address] [place] [address] [facility] [place] [address] Consulting General Surgery 09/25/19 Shanna June, OBGYN HOSPITALIST PHYSICIAN [address] [place] [address] Referring Family Medicine 10/19/19 Agustin Valentino [address] [facility] [address] [place] [address] Referring Family Medicine 05/13/22 Chocolate Molder Relationship Specialty Start Date End Date Jaquan Morrow [address] [place] [address] PCP - General 06/16/22 Antelmo Davey MD [address] [place] [address] (Fax) 09/25/19 [place] [address] [place] [address] Consulting General Surgery 09/25/19 Shanna June, OBGYN HOSPITALIST PHYSICIAN [address] [place] [address] Referring Family Medicine 10/19/19 Agustin Valentino [address] [facility] [address] [place] [address] Referring Family Medicine 05/13/22 Chocolate Molder Relationship Specialty Start Date End Date Jaquan Morrow [address] [place] [address] PCP - General 06/16/22 Antelmo Davey MD [address] [place] [address] (Fax) 09/25/19 [place] [address] [place] [address] Consulting General Surgery 09/25/19 Shanna June, OBGYN HOSPITALIST PHYSICIAN [address] [place] [address] Referring Family Medicine 10/19/19 Agustin Valentino [address] [place] [address] [place] [address] Referring Family Medicine 05/13/22 Chocolate Molder Relationship Specialty Start Date End Date Jaquan Morrow [address] [place] [address] [facility] - General 06/16/22 Atnelmo Davey MD [address] [place] [address] (Fax) 09/25/19 [place] [address] [place] [address] Consulting General Surgery 09/25/19 Shanna June, OBGYN HOSPITALIST PHYSICIAN [address] [place] [address] Referring Family Medicine 10/19/19 Agustin Valentino [address] [place] [address] Referring Family Medicine 05/13/22 Chocolate Molder Relationship Specialty Start Date End Date Jaquan Morrow [address] [place] [address] PCP - General 06/16/22 Antelmo Davey MD [address] [place] [address] (Fax) 09/25/19 [place] [address] [place] [address] Consulting General Surgery 09/25/19 Shanna June, OBGYN HOSPITALIST PHYSICIAN [address] [place] [address] Referring Family Medicine 10/19/19 Agustin Valentino [address] [place] [address] Referring Family Medicine 05/13/22 Chocolate Molder Relationship Specialty Start Date End Date Jaquan Morrow [address] [place] [address] PCP - General 06/16/22 Antelmo Davey MD [address] [place] [address] (Fax) 09/25/19 [place] [address] [place] [address] Consulting General Surgery 09/25/19 Shanna June, OBGYN HOSPITALIST PHYSICIAN [address] [place] [address] Referring Family Medicine 10/19/19 Agustin Valentino [address] [facility] [address] [place] [address] Referring Family Medicine 05/13/22 Chocolate Molder Relationship Specialty Start Date End Date Jaquan Morrow [address] [place] [address] PCP - General 06/16/22 Antelmo Davey MD [address] [place] [address] (Fax) 09/25/[address] [place] [address] [facility] [place] [address] Consulting General Surgery 09/25/19 Shanna June, OBGYN HOSPITALIST PHYSICIAN [address] [place] [address] Referring Family Medicine 10/19/19 Agustin Valentino [address] [facility] [address] [place] [address] Referring Family Medicine 05/13/22 Chocolate Molder Relationship Specialty Start Date End Date Jaquan Morrow [address] [place] [address] PCP - General 06/16/22 Antelmo Davey MD [address] [place] [address] 09/25/19 [place] [address] [place] [address] Consulting General Surgery 09/25/19 Shanna June, OBGYN HOSPITALIST PHYSICIAN [address] [place] [address] Referring Family Medicine 10/19/19 Agustin Valentino [address] [facility] [address] [place] [address] Referring Family Medicine 05/13/22 Chocolate Molder Relationship Specialty Start Date End Date Jaquan Morrow [address] [place] [address] PCP - General 06/16/22 Antelmo Davey MD [address] [place] [address] 09/25/19 [place] [address] [place] [address] Consulting General Surgery 09/25/19 Shanna June, OBGYN HOSPITALIST PHYSICIAN [address] [place] [address] Referring Family Medicine 10/19/19 Agustin Valentino [address] [place] [address] [place] [address] Referring Family Medicine 05/13/22 Chocolate Molder Relationship Specialty Start Date End Date Jaquan Morrow [address] [place] [address] PCP - General 06/16/22 Antelmo Davey MD [address] [facility] [place] [address] (Fax) 09/25/19 [place] [address] [place] [address] Consulting General Surgery 09/25/19 Shanna June, BETH [address] [place] [address] Referring Family Medicine 10/19/19 Agustin Valentino [address] [place] [address] [place] [address] Referring Family Medicine 05/13/22 Chocolate Molder Relationship Specialty Start Date End Date Jaquan Morrow [address] [place] [address] PCP - General 06/16/22 Antelmo Davey MD [address] [place] [address] (Fax) 09/25/19 [place] [address] [place] [address] Consulting General Surgery 09/25/19 Shanna June, BETH [address] [place] [address] Referring Family Medicine 10/19/19 Agustin Valentino [address] [address] Referring Family Medicine 05/13/22 Chocolate Molder Relationship Specialty Start Date End Date Jaquan Morrow [address] [place] [address] PCP - General 06/16/22 Antelmo Davey MD [address] [place] [address] (Fax) 09/25/19 [place] [address] [place] [address] Consulting General Surgery 09/25/19 Shanna June CNP [address] [place] [address] Referring Family Medicine 10/19/19 Agustin Valentino PA [address] [place] [address] Referring Family Medicine 05/13/22 Chocolate Molder Relationship Specialty Start Date End Date Jaquan Morrow [address] [place] [address] PCP - General 06/16/22 Antelmo Davey MD [address] [place] [address] (Fax) 09/25/19 [place] [address] [place] [address] Consulting General Surgery 09/25/19 Shanna June CNP [address] [place] [address] Referring Family Medicine 10/19/19 Agustin Valentino PA [address] [address] [place] [address] Referring Family Medicine 05/13/22 Chocolate Molder Relationship Specialty Start Date End Date Foley Wally Lesia [address] [place] [address] PCP - General Specialist 07/27/21 Chocolate Molder Relationship Specialty Start Date End Date Shanna June FNP [address] [place] [address] PCP - General Nurse Practitioner - Family 01/30/20 Chocolate Molder Relationship Specialty Start Date End Date Jaquan Morrow [address] [place] [address] PCP - General 06/16/22 Antelmo Davey MD [address] [place] [address] 09/25/19 [place] [address] [place] [address] Consulting General Surgery 09/25/19 Shanna June CNP [address] [place] [address] Referring Family Medicine 10/19/19 Agustin Valentino PA [address] [address] [place] [address] Referring Family Medicine 05/13/22 Chocolate Molder Relationship Specialty Start Date End Date Cristhian Jaquan [address] [place] [address] PCP - General 06/16/22 Antelmo Davey MD [address] [place] [address] (Fax) 09/25/19 [place] [address] [place] [address] Consulting General Surgery 09/25/19 Shanna June, BETH [address] [place] [address] Referring Family Medicine 10/19/19 Agustin Valentino PA [address] [place] [address] [place] [address] Referring Family Medicine 05/13/22 Chocolate Molder Relationship Specialty Start Date End Date Jaquan Morrow [address] [place] [address] PCP - General 06/16/22 Antelmo Davey MD [address] [facility] [place] [place] [address] (Fax) 09/25/19 [place] [address] [place] [address] Consulting General Surgery 09/25/19 Shanna June, BETH [address] [place] [address] Referring Family Medicine 10/19/19 Agustin Valentino PA [address] [facility] 150 [place] [address] Referring Family Medicine 05/13/22 Chocolate Molder Relationship Specialty Start Date End Date Jaquan Morrow [address] [place] [address] PCP - General 06/16/22 Antelmo Davey MD [address] [place] [address] (Fax) 09/25/19 [place] [address] [place] [address] Consulting General Surgery 09/25/19 Shanna June CNP [address] [place] [address] Referring Family Medicine 10/19/19 Agustin Valentino PA [address] [address] [place] [address] Referring Family Medicine 05/13/22 Chocolate Molder Relationship Specialty Start Date End Date Jaquan Morrow [address] [place] [address] PCP - General 06/16/22 Antelmo Davey MD [address] [place] [address] (Fax) 09/25/19 [place] [address] [place] [address] Consulting General Surgery 09/25/19 Shanna June, BETH [address] [place] [address] Referring Family Medicine 10/19/19 Agustin Valentino PA [address] [address] [place] [address] Referring Family Medicine 05/13/22 Chocolate Molder Relationship Specialty Start Date End Date Jaquan Morrow [address] [place] [address] PCP - General 06/16/22 Antelmo Davey MD [address] [place] [address] 09/25/19 [place] [address] [place] [address] Consulting General Surgery 09/25/19 Shanna June, OBGYN HOSPITALIST PHYSICIAN [address] [place] [address] Referring Family Medicine 10/19/19 Agustin Valentino PA [address] [address] [place] [address] Referring Family Medicine 05/13/22 Chocolate Molder Relationship Specialty Start Date End Date Jaquan Morrow [address] [place] [address] PCP - General 06/16/22 Antelmo Davey MD [address] [place] [address] (Fax) 09/25/19 [place] [address] [place] [address] Consulting General Surgery 09/25/19 Shanna June, BETH [address] [place] [address] Referring Family Medicine 10/19/19 Agustin Valentino PA [address] [address] [place] [address] Referring Family Medicine 05/13/22 Chocolate Molder Relationship Specialty Start Date End Date Jaquan Morrow [address] [place] [address] PCP - General 06/16/22 Antelmo Davey MD [address] [facility] [place] [place] [address] 09/25/19 [place] [address] [place] [address] Consulting General Surgery 09/25/19 Shanna June, OBGYN HOSPITALIST PHYSICIAN [address] [place] [address] Referring Family Medicine 10/19/19 Agustin Valentino, PA [address] [facility] [facility] [address] [place] [address] Referring Family Medicine 05/13/22 Chocolate Molder Relationship Specialty Start Date End Date Cristhian Jaquan [address] [place] [address] PCP - General 06/16/22 Antelmo Davey MD [address] [place] [address] (Fax) 09/25/19 [place] [address] [place] [address] Consulting General Surgery 09/25/19 Shanna June, BETH [address] [place] [address] Referring Family Medicine 10/19/19 Agustin Valentino PA [address] [place] [address] [place] [address] Referring Family Medicine 05/13/22 Chocolate Molder Relationship Specialty Start Date End Date Jaquan Morrow [address] [place] [address] PCP - General 06/16/22 Antelmo Davey MD [address] [place] [address] (Fax) 09/25/19 [place] [address] [place] [address] Consulting General Surgery 09/25/19 Shanna June, BETH [address] [place] [address] Referring Family Medicine 10/19/19 Agustin Valentino PA [address] [facility] [address] [place] [address] Referring Family Medicine 05/13/22 Chocolate Molder Relationship Specialty Start Date End Date Jaquan Morrow [address] [place] [address] PCP - General 06/16/22 Antelmo Davey MD [address] [place] [address] (Fax) 09/25/19 [place] [address] [place] [address] Consulting General Surgery 09/25/19 Shanna June CNP [address] [place] [address] Referring Family Medicine 10/19/19 Agustin Valentino PA [address] [facility] 150 [place] [address] Referring Family Medicine 05/13/22 Chocolate Molder Relationship Specialty Start Date End Date Jaquan Morrow [address] [place] [address] PCP - General 06/16/22 Antelmo Davey MD [address] [place] [address] (Fax) 09/25/19 [place] [address] [place] [address] Consulting General Surgery 09/25/19 Shanna June, BETH [address] [place] [address] Referring Family Medicine 10/19/19 Agustin Valentino PA [address] [facility] [address] [place] [address] Referring Family Medicine 05/13/22 Chocolate Molder Relationship Specialty Start Date End Date Jaquan Morrow [address] [place] [address] PCP - General 06/16/22 Antelmo Davey MD [address] [place] [address] 09/25/19 [place] [address] [place] [address] Consulting General Surgery 09/25/19 Shanna June, BETH [address] [place] [address] Referring Family Medicine 10/19/19 Agustin Valentino PA [address] [address] [place] [address] Referring Family Medicine 05/13/22 Chocolate Molder Relationship Specialty Start Date End Date Jaquan Morrow [address] [place] [address] PCP - General 06/16/22 Antelmo Davey MD [address] [place] [address] 09/25/19 [place] [address] [place] [address] Consulting General Surgery 09/25/19 Shanna June, OBGYN HOSPITALIST PHYSICIAN [address] [place] [address] Referring Family Medicine 10/19/19 Agustin Valentino PA [address] [facility] [address] [place] [address] Referring Family Medicine 05/13/22 Chocolate Molder Relationship Specialty Start Date End Date Jaquan Morrow [address] [place] [address] PCP - General 06/16/22 Antelmo Davey MD [address] [place] [address] 09/25/19 [place] [address] [place] [address] Consulting General Surgery 09/25/19 Shanna June, OBGYN HOSPITALIST PHYSICIAN [address] [place] [address] Referring Family Medicine 10/19/19 Agustin Valentino PA [address] [facility] 150 [place] [address] Referring Family Medicine 05/13/22 Chocolate Molder Relationship Specialty Start Date End Date Cristhian Jaquan [address] [place] [address] PCP - General 06/16/22 Antelmo Davey MD [address] [place] [address] (Fax) 09/25/19 [place] [address] [place] [address] Consulting General Surgery 09/25/19 Shanna June, BETH [address] [place] [address] Referring Family Medicine 10/19/19 Agustin Valentino PA [address] [place] [address] [place] [address] Referring Family Medicine 05/13/22 Chocolate Molder Relationship Specialty Start Date End Date CristhianLindadi [address] [place] [address] PCP - General 06/16/22 Antelmo Davey MD [address] [place] [address] (Fax) 09/25/19 [place] [address] [place] [address] Consulting General Surgery 09/25/19 Shanna June, BETH [address] [place] [address] Referring Family Medicine 10/19/19 Agustin Valentino PA [address] [facility] [address] [place] [address] Referring Family Medicine 05/13/22 Chocolate Molder Relationship Specialty Start Date End Date Jaquan Morrow [address] [place] [address] PCP - General 06/16/22 Antelmo Davey MD [address] [place] [address] (Fax) 09/25/19 [place] [address] [place] [address] Consulting General Surgery 09/25/19 Shanna June CNP [address] [place] [address] Referring Family Medicine 10/19/19 Agustin Valentino PA [address] [facility] [place] [address] Referring Family Medicine 05/13/22 Chocolate Molder Relationship Specialty Start Date End Date Jaquan Morrow [address] [place] [address] PCP - General 06/16/22 Antelmo Davey MD [address] [place] [address] (Fax) 09/25/19 [place] [address] [place] [address] Consulting General Surgery 09/25/19 Shanna June, BETH [address] [place] [address] Referring Family Medicine 10/19/19 Agustin Valentino PA [address] [address] [place] [address] Referring Family Medicine 05/13/22 Chocolate Molder Relationship Specialty Start Date End Date Jaquan Morrow [address] [place] [address] PCP - General 06/16/22 Antelmo Davey MD [address] [place] [address] 09/25/[address] [place] [address] [address] [place] [address] Consulting General Surgery 09/25/19 Shanna June, BETH [address] [place] [address] Referring Family Medicine 10/19/19 Agustin Valentino PA [address] [facility] [place] [address] Referring Family Medicine 05/13/22 Chocolate Molder Relationship Specialty Start Date End Date Jaquan Morrow APRN.OBGYN HOSPITALIST PHYSICIAN [address] [place] [address] PCP - General 06/16/22 Antelmo Davey MD [address] [place] [address] (Fax) 09/25/19 [place] [address] [place] [address] Consulting General Surgery 09/25/19 Shanna June, OBGYN HOSPITALIST PHYSICIAN [address] [place] [address] Referring Family Medicine 10/19/19 Agustin Valentino PA [address] [facility] [address] [place] [address] Referring Family Medicine 05/13/22 Chocolate Molder Relationship Specialty Start Date End Date Jaquan Morrow APRN.OBGYN HOSPITALIST PHYSICIAN [address] [place] [address] PCP - General 06/16/22 Antelmo Davey MD [address] [place] [address] 09/25/19 [place] [address] [place] [address] Consulting General Surgery 09/25/19 Shanna June, OBGYN HOSPITALIST PHYSICIAN [address] [place] [address] Referring Family Medicine 10/19/19 Agustin Valentino PA [address] [address] Referring Family Medicine 05/13/22 Chocolate Molder Relationship Specialty Start Date End Date Jaquan Morrow ROVING WEIGHT GAUGER.OBGYN HOSPITALIST PHYSICIAN [address] [place] [address] PCP - General 06/16/22 Antelmo Davey MD [address] [place] [address] (Fax) 09/25/19 [place] [address] [place] [address] Consulting General Surgery 09/25/19 Shanna June CNP [address] [place] [address] Referring Family Medicine 10/19/19 Agustin Valentino PA [address] [address] Referring Family Medicine 05/13/22 Chocolate Molder Relationship Specialty Start Date End Date Jaquan Morrow ROVING WEIGHT GAUGER.OBGYN HOSPITALIST PHYSICIAN [address] [place] [place] [address] PCP - General 06/16/22 Antelmo Davey MD [address] [place] [address] (Fax) 09/25/19 [place] [address] [place] [address] Consulting General Surgery 09/25/19 Shanna June, OBGYN HOSPITALIST PHYSICIAN [address] [place] [address] Referring Family Medicine 10/19/19 Agustin Valentino PA [address] [facility] 150 [place] [address] Referring Family Medicine 05/13/22 Chocolate Molder Relationship Specialty Start Date End Date Jaquan Morrow APRN.OBGYN HOSPITALIST PHYSICIAN [address] [place] [address] PCP - General 06/16/22 Antelmo Davey MD [address] [place] [address] 09/25/19 [place] [address] [place] [address] Consulting General Surgery 09/25/19 Shanna June, BETH [address] [place] [address] Referring Family Medicine 10/19/19 Agustin Valentino PA [address] [address] [place] [address] Referring Family Medicine 05/13/22 Team Status: Active Member Role Status Dates Jaquan Morrow , TACTICAL DECEPTION PLANS OFFICER-C Primary Care Provider Active Team Status: Inactive Member Role Status Dates Jaquan Morrow , TACTICAL DECEPTION PLANS OFFICER-C Primary Care Provider Active Claus Obrien DO Emergency Provider Active Roseline Mejia DO RES Active Source Comments (unrecognize d section and content) In the event this informatio n is protected by the Federal Confidentiality of Alcohol and Drug Abuse Patient Records regulations: The Federal rules restrict any use of the information to criminally investigate or prosecute any alcohol or drug abuse patient.[facility] the event this information is protected by the Federal Confidentiality of Alcohol and Drug Abuse Patient Records regulations: The Federal rules restrict any use of the information to criminally investigate or prosecute any alcohol or drug abuse patient.[facility] HospitalIn the event this information is protected by the Federal Confidentiality of Alcohol and Drug Abuse Patient Records regulations: The Federal rules restrict any use of the information to criminally investigate or prosecute any alcohol or drug abuse patient.[facility] HospitalIn the event this information is protected by the Federal Confidentiality of Alcohol and Drug Abuse Patient Records regulations: The Federal rules restrict any use of the information to criminally investigate or prosecute any alcohol or drug abuse patient.[facility] HospitalIn the event this information is protected by the Federal Confidentiality of Alcohol and Drug Abuse Patient Records regulations: The Federal rules restrict any use of the information to criminally investigate or prosecute any alcohol or drug abuse patient.[facility] HospitalIn the event this information is protected by the Federal Confidentiality of Alcohol and Drug Abuse Patient Records regulations: The Federal rules restrict any use of the information to criminally investigate or prosecute any alcohol or drug abuse patient.[facility] HospitalIn the event this information is protected by the Federal Confidentiality of Alcohol and Drug Abuse Patient Records regulations: The Federal rules restrict any use of the information to criminally investigate or prosecute any alcohol or drug abuse patient.[facility] HospitalIn the event this information is protected by the Federal Confidentiality of Alcohol and Drug Abuse Patient Records regulations: The Federal rules restrict any use of the information to criminally investigate or prosecute any alcohol or drug abuse patient.[facility] HospitalIn the event this information is protected by the Federal Confidentiality of Alcohol and Drug Abuse Patient Records regulations: The Federal rules restrict any use of the information to criminally investigate or prosecute any alcohol or drug abuse patient.[facility] HospitalIn the event this information is protected by the Federal Confidentiality of Alcohol and Drug Abuse Patient Records regulations: The Federal rules restrict any use of the information to criminally investigate or prosecute any alcohol or drug abuse patient.[facility] HospitalIn the event this information is protected by the Federal Confidentiality of Alcohol and Drug Abuse Patient Records regulations: The Federal rules restrict any use of the information to criminally investigate or prosecute any alcohol or drug abuse patient.[facility] HospitalIn the event this information is protected by the Federal Confidentiality of Alcohol and Drug Abuse Patient Records regulations: The Federal rules restrict any use of the information to criminally investigate or prosecute any alcohol or drug abuse patient.[facility] HospitalIn the event this information is protected by the Federal Confidentiality of Alcohol and Drug Abuse Patient Records regulations: The Federal rules restrict any use of the information to criminally investigate or prosecute any alcohol or drug abuse patient.[facility] HospitalIn the event this information is protected by the Federal Confidentiality of Alcohol and Drug Abuse Patient Records regulations: The Federal rules restrict any use of the information to criminally investigate or prosecute any alcohol or drug abuse patient.[facility] HospitalIn the event this information is protected by the Federal Confidentiality of Alcohol and Drug Abuse Patient Records regulations: The Federal rules restrict any use of the information to criminally investigate or prosecute any alcohol or drug abuse patient.[facility] HospitalIn the event this information is protected by the Federal Confidentiality of Alcohol and Drug Abuse Patient Records regulations: The Federal rules restrict any use of the information to criminally investigate or prosecute any alcohol or drug abuse patient.[facility] HospitalIn the event this information is protected by the Federal Confidentiality of Alcohol and Drug Abuse Patient Records regulations: The Federal rules restrict any use of the information to criminally investigate or prosecute any alcohol or drug abuse patient.[facility] HospitalIn the event this information is protected by the Federal Confidentiality of Alcohol and Drug Abuse Patient Records regulations: The Federal rules restrict any use of the information to criminally investigate or prosecute any alcohol or drug abuse patient.[facility] HospitalIn the event this information is protected by the Federal Confidentiality of Alcohol and Drug Abuse Patient Records regulations: The Federal rules restrict any use of the information to criminally investigate or prosecute any alcohol or drug abuse patient.[facility] HospitalIn the event this information is protected by the Federal Confidentiality of Alcohol and Drug Abuse Patient Records regulations: The Federal rules restrict any use of the information to criminally investigate or prosecute any alcohol or drug abuse patient.[facility] HospitalIn the event this information is protected by the Federal Confidentiality of Alcohol and Drug Abuse Patient Records regulations: The Federal rules restrict any use of the information to criminally investigate or prosecute any alcohol or drug abuse patient.[facility] HospitalIn the event this information is protected by the Federal Confidentiality of Alcohol and Drug Abuse Patient Records regulations: The Federal rules restrict any use of the information to criminally investigate or prosecute any alcohol or drug abuse patient.[facility] HospitalIn the event this information is protected by the Federal Confidentiality of Alcohol and Drug Abuse Patient Records regulations: The Federal rules restrict any use of the information to criminally investigate or prosecute any alcohol or drug abuse patient.[facility] HospitalIn the event this information is protected by the Federal Confidentiality of Alcohol and Drug Abuse Patient Records regulations: The Federal rules restrict any use of the information to criminally investigate or prosecute any alcohol or drug abuse patient.[facility] HospitalIn the event this information is protected by the Federal Confidentiality of Alcohol and Drug Abuse Patient Records regulations: The Federal rules restrict any use of the information to criminally investigate or prosecute any alcohol or drug abuse patient.[facility] HospitalIn the event this information is protected by the Federal Confidentiality of Alcohol and Drug Abuse Patient Records regulations: The Federal rules restrict any use of the information to criminally investigate or prosecute any alcohol or drug abuse patient.[facility] HospitalIn the event this information is protected by the Federal Confidentiality of Alcohol and Drug Abuse Patient Records regulations: The Federal rules restrict any use of the information to criminally investigate or prosecute any alcohol or drug abuse patient.[facility] HospitalIn the event this information is protected by the Federal Confidentiality of Alcohol and Drug Abuse Patient Records regulations: The Federal rules restrict any use of the information to criminally investigate or prosecute any alcohol or drug abuse patient.[facility] HospitalIn the event this information is protected by the Federal Confidentiality of Alcohol and Drug Abuse Patient Records regulations: The Federal rules restrict any use of the information to criminally investigate or prosecute any alcohol or drug abuse patient.[facility] HospitalIn the event this information is protected by the Federal Confidentiality of Alcohol and Drug Abuse Patient Records regulations: The Federal rules restrict any use of the information to criminally investigate or prosecute any alcohol or drug abuse patient.[facility] HospitalIn the event this information is protected by the Federal Confidentiality of Alcohol and Drug Abuse Patient Records regulations: The Federal rules restrict any use of the information to criminally investigate or prosecute any alcohol or drug abuse patient.[facility] HospitalIn the event this information is protected by the Federal Confidentiality of Alcohol and Drug Abuse Patient Records regulations: The Federal rules restrict any use of the information to criminally investigate or prosecute any alcohol or drug abuse patient.[facility] HospitalIn the event this information is protected by the Federal Confidentiality of Alcohol and Drug Abuse Patient Records regulations: The Federal rules restrict any use of the information to criminally investigate or prosecute any alcohol or drug abuse patient.[facility] HospitalIn the event this information is protected by the Federal Confidentiality of Alcohol and Drug Abuse Patient Records regulations: The Federal rules restrict any use of the information to criminally investigate or prosecute any alcohol or drug abuse patient.[facility] HospitalIn the event this information is protected by the Federal Confidentiality of Alcohol and Drug Abuse Patient Records regulations: The Federal rules restrict any use of the information to criminally investigate or prosecute any alcohol or drug abuse patient.[facility] HospitalIn the event this information is protected by the Federal Confidentiality of Alcohol and Drug Abuse Patient Records regulations: The Federal rules restrict any use of the information to criminally investigate or prosecute any alcohol or drug abuse patient.[facility] HospitalIn the event this information is protected by the Federal Confidentiality of Alcohol and Drug Abuse Patient Records regulations: The Federal rules restrict any use of the information to criminally investigate or prosecute any alcohol or drug abuse patient.[facility] HospitalIn the event this information is protected by the Federal Confidentiality of Alcohol and Drug Abuse Patient Records regulations: The Federal rules restrict any use of the information to criminally investigate or prosecute any alcohol or drug abuse patient.[facility] HospitalIn the event this information is protected by the Federal Confidentiality of Alcohol and Drug Abuse Patient Records regulations: The Federal rules restrict any use of the information to criminally investigate or prosecute any alcohol or drug abuse patient.[facility] HospitalIn the event this information is protected by the Federal Confidentiality of Alcohol and Drug Abuse Patient Records regulations: The Federal rules restrict any use of the information to criminally investigate or prosecute any alcohol or drug abuse patient.[facility] HospitalIn the event this information is protected by the Federal Confidentiality of Alcohol and Drug Abuse Patient Records regulations: The Federal rules restrict any use of the information to criminally investigate or prosecute any alcohol or drug abuse patient.[facility] HospitalIn the event this information is protected by the Federal Confidentiality of Alcohol and Drug Abuse Patient Records regulations: The Federal rules restrict any use of the information to criminally investigate or prosecute any alcohol or drug abuse patient.[facility] HospitalIn the event this information is protected by the Federal Confidentiality of Alcohol and Drug Abuse Patient Records regulations: The Federal rules restrict any use of the information to criminally investigate or prosecute any alcohol or drug abuse patient.[facility] HospitalIn the event this information is protected by the Federal Confidentiality of Alcohol and Drug Abuse Patient Records regulations: The Federal rules restrict any use of the information to criminally investigate or prosecute any alcohol or drug abuse patient.[facility] HospitalIn the event this information is protected by the Federal Confidentiality of Alcohol and Drug Abuse Patient Records regulations: The Federal rules restrict any use of the information to criminally investigate or prosecute any alcohol or drug abuse patient.[facility] HospitalIn the event this information is protected by the Federal Confidentiality of Alcohol and Drug Abuse Patient Records regulations: The Federal rules restrict any use of the information to criminally investigate or prosecute any alcohol or drug abuse patient.[facility] HospitalIn the event this information is protected by the Federal Confidentiality of Alcohol and Drug Abuse Patient Records regulations: The Federal rules restrict any use of the information to criminally investigate or prosecute any alcohol or drug abuse patient.[facility] HospitalIn the event this information is protected by the Federal Confidentiality of Alcohol and Drug Abuse Patient Records regulations: The Federal rules restrict any use of the information to criminally investigate or prosecute any alcohol or drug abuse patient.[facility] HospitalIn the event this information is protected by the Federal Confidentiality of Alcohol and Drug Abuse Patient Records regulations: The Federal rules restrict any use of the information to criminally investigate or prosecute any alcohol or drug abuse patient.[facility] HospitalIn the event this information is protected by the Federal Confidentiality of Alcohol and Drug Abuse Patient Records regulations: The Federal rules restrict any use of the information to criminally investigate or prosecute any alcohol or drug abuse patient.[facility] HospitalIn the event this information is protected by the Federal Confidentiality of Alcohol and Drug Abuse Patient Records regulations: The Federal rules restrict any use of the information to criminally investigate or prosecute any alcohol or drug abuse patient.[facility] HospitalIn the event this information is protected by the Federal Confidentiality of Alcohol and Drug Abuse Patient Records regulations: The Federal rules restrict any use of the information to criminally investigate or prosecute any alcohol or drug abuse patient.[facility] HospitalIn the event this information is protected by the Federal Confidentiality of Alcohol and Drug Abuse Patient Records regulations: The Federal rules restrict any use of the information to criminally investigate or prosecute any alcohol or drug abuse patient.[facility] HospitalIn the event this information is protected by the Federal Confidentiality of Alcohol and Drug Abuse Patient Records regulations: The Federal rules restrict any use of the information to criminally investigate or prosecute any alcohol or drug abuse patient.[facility] HospitalIn the event this information is protected by the Federal Confidentiality of Alcohol and Drug Abuse Patient Records regulations: The Federal rules restrict any use of the information to criminally investigate or prosecute any alcohol or drug abuse patient.[facility] HospitalIn the event this information is protected by the Federal Confidentiality of Alcohol and Drug Abuse Patient Records regulations: The Federal rules restrict any use of the information to criminally investigate or prosecute any alcohol or drug abuse patient.[facility] HospitalIn the event this information is protected by the Federal Confidentiality of Alcohol and Drug Abuse Patient Records regulations: The Federal rules restrict any use of the information to criminally investigate or prosecute any alcohol or drug abuse patient.[facility] HospitalIn the event this information is protected by the Federal Confidentiality of Alcohol and Drug Abuse Patient Records regulations: The Federal rules restrict any use of the information to criminally investigate or prosecute any alcohol or drug abuse patient.[facility] HospitalIn the event this information is protected by the Federal Confidentiality of Alcohol and Drug Abuse Patient Records regulations: The Federal rules restrict any use of the information to criminally investigate or prosecute any alcohol or drug abuse patient.[facility] HospitalIn the event this information is protected by the Federal Confidentiality of Alcohol and Drug Abuse Patient Records regulations: The Federal rules restrict any use of the information to criminally investigate or prosecute any alcohol or drug abuse patient.[facility] HospitalIn the event this information is protected by the Federal Confidentiality of Alcohol and Drug Abuse Patient Records regulations: The Federal rules restrict any use of the information to criminally investigate or prosecute any alcohol or drug abuse patient.[facility] HospitalIn the event this information is protected by the Federal Confidentiality of Alcohol and Drug Abuse Patient Records regulations: The Federal rules restrict any use of the information to criminally investigate or prosecute any alcohol or drug abuse patient.[facility] HospitalIn the event this information is protected by the Federal Confidentiality of Alcohol and Drug Abuse Patient Records regulations: The Federal rules restrict any use of the information to criminally investigate or prosecute any alcohol or drug abuse patient.[facility] HospitalIn the event this information is protected by the Federal Confidentiality of Alcohol and Drug Abuse Patient Records regulations: The Federal rules restrict any use of the information to criminally investigate or prosecute any alcohol or drug abuse patient.[facility] HospitalIn the event this information is protected by the Federal Confidentiality of Alcohol and Drug Abuse Patient Records regulations: The Federal rules restrict any use of the information to criminally investigate or prosecute any alcohol or drug abuse patient.[facility] HospitalIn the event this information is protected by the Federal Confidentiality of Alcohol and Drug Abuse Patient Records regulations: The Federal rules restrict any use of the information to criminally investigate or prosecute any alcohol or drug abuse patient.[facility] HospitalIn the event this information is protected by the Federal Confidentiality of Alcohol and Drug Abuse Patient Records regulations: The Federal rules restrict any use of the information to criminally investigate or prosecute any alcohol or drug abuse patient.[facility] HospitalIn the event this information is protected by the Federal Confidentiality of Alcohol and Drug Abuse Patient Records regulations: The Federal rules restrict any use of the information to criminally investigate or prosecute any alcohol or drug abuse patient.[facility] HospitalIn the event this information is protected by the Federal Confidentiality of Alcohol and Drug Abuse Patient Records regulations: The Federal rules restrict any use of the information to criminally investigate or prosecute any alcohol or drug abuse patient.[facility] HospitalIn the event this information is protected by the Federal Confidentiality of Alcohol and Drug Abuse Patient Records regulations: The Federal rules restrict any use of the information to criminally investigate or prosecute any alcohol or drug abuse patient.[facility] HospitalIn the event this information is protected by the Federal Confidentiality of Alcohol and Drug Abuse Patient Records regulations: The Federal rules restrict any use of the information to criminally investigate or prosecute any alcohol or drug abuse patient.[facility] HospitalIn the event this information is protected by the Federal Confidentiality of Alcohol and Drug Abuse Patient Records regulations: The Federal rules restrict any use of the information to criminally investigate or prosecute any alcohol or drug abuse patient.[facility] HospitalIn the event this information is protected by the Federal Confidentiality of Alcohol and Drug Abuse Patient Records regulations: The Federal rules restrict any use of the information to criminally investigate or prosecute any alcohol or drug abuse patient.[facility] HospitalIn the event this information is protected by the Federal Confidentiality of Alcohol and Drug Abuse Patient Records regulations: The Federal rules restrict any use of the information to criminally investigate or prosecute any alcohol or drug abuse patient.[facility] HospitalIn the event this information is protected by the Federal Confidentiality of Alcohol and Drug Abuse Patient Records regulations: The Federal rules restrict any use of the information to criminally investigate or prosecute any alcohol or drug abuse patient.[facility] HospitalIn the event this information is protected by the Federal Confidentiality of Alcohol and Drug Abuse Patient Records regulations: The Federal rules restrict any use of the information to criminally investigate or prosecute any alcohol or drug abuse patient.[facility] HospitalIn the event this information is protected by the Federal Confidentiality of Alcohol and Drug Abuse Patient Records regulations: The Federal rules restrict any use of the information to criminally investigate or prosecute any alcohol or drug abuse patient.[facility] HospitalIn the event this information is protected by the Federal Confidentiality of Alcohol and Drug Abuse Patient Records regulations: The Federal rules restrict any use of the information to criminally investigate or prosecute any alcohol or drug abuse patient.[facility] HospitalIn the event this information is protected by the Federal Confidentiality of Alcohol and Drug Abuse Patient Records regulations: The Federal rules restrict any use of the information to criminally investigate or prosecute any alcohol or drug abuse patient.[facility] HospitalIn the event this information is protected by the Federal Confidentiality of Alcohol and Drug Abuse Patient Records regulations: The Federal rules restrict any use of the information to criminally investigate or prosecute any alcohol or drug abuse patient.[facility] HospitalIn the event this information is protected by the Federal Confidentiality of Alcohol and Drug Abuse Patient Records regulations: The Federal rules restrict any use of the information to criminally investigate or prosecute any alcohol or drug abuse patient.[facility] HospitalIn the event this information is protected by the Federal Confidentiality of Alcohol and Drug Abuse Patient Records regulations: The Federal rules restrict any use of the information to criminally investigate or prosecute any alcohol or drug abuse patient.[facility] HospitalIn the event this information is protected by the Federal Confidentiality of Alcohol and Drug Abuse Patient Records regulations: The Federal rules restrict any use of the information to criminally investigate or prosecute any alcohol or drug abuse patient.[facility] HospitalIn the event this information is protected by the Federal Confidentiality of Alcohol and Drug Abuse Patient Records regulations: The Federal rules restrict any use of the information to criminally investigate or prosecute any alcohol or drug abuse patient.[facility] HospitalIn the event this information is protected by the Federal Confidentiality of Alcohol and Drug Abuse Patient Records regulations: The Federal rules restrict any use of the information to criminally investigate or prosecute any alcohol or drug abuse patient.[facility] HospitalIn the event this information is protected by the Federal Confidentiality of Alcohol and Drug Abuse Patient Records regulations: The Federal rules restrict any use of the information to criminally investigate or prosecute any alcohol or drug abuse patient.[facility] HospitalIn the event this information is protected by the Federal Confidentiality of Alcohol and Drug Abuse Patient Records regulations: The Federal rules restrict any use of the information to criminally investigate or prosecute any alcohol or drug abuse patient.[facility] HospitalIn the event this information is protected by the Federal Confidentiality of Alcohol and Drug Abuse Patient Records regulations: The Federal rules restrict any use of the information to criminally investigate or prosecute any alcohol or drug abuse patient.[facility] HospitalIn the event this information is protected by the Federal Confidentiality of Alcohol and Drug Abuse Patient Records regulations: The Federal rules restrict any use of the information to criminally investigate or prosecute any alcohol or drug abuse patient.[facility] HospitalIn the event this information is protected by the Federal Confidentiality of Alcohol and Drug Abuse Patient Records regulations: The Federal rules restrict any use of the information to criminally investigate or prosecute any alcohol or drug abuse patient.[facility] Ordered Prescriptions (unrec ognized section and content) Prescription Sig Dispensed Refills Start Date End Da te omeprazole (PRILOSEC) 20 MG delayed release capsule Take 1 capsule by mouth 2 times daily (before meals) 60 capsule 0 07/27/2021 Prescription Sig Dispensed Refills Start Date End Da te clindamycin (CLEOCIN) 150 MG capsule Take 3 capsules by mouth in the morning and 3 capsules at noon and 3 capsules before bedtime. Do all this for 7 days. 63 capsule 0 08/30/2021 09/06/2021 Prescription Sig Dispensed Refills Start Date End Da te predniSONE (DELTASONE) 20 MG tablet Take 2 tablets by mouth daily for 5 days 10 tablet 0 10/31/2022 11/05/2022 cyclobenzaprine (FLEXERIL) 10 MG tablet Take 1 tablet by mouth 3 times daily as needed for Muscle spasms 21 tablet 0 10/31/2022 11/07/2022 Goals (unrecognized section and content) Goals may be documented in a n alternate section FOR RECORDS PERTAINING TO PATIENTS WHO ARE OR HAVE BEEN ENROLLED IN A CHEMICAL DEPENDENCY/SUBSTANCEABUSE PROGRAM, SOME INFORMATION MAY BE OMITTED. This clinical summary was aggregated from multiple sources. Caution should be exercised in using it in the provision of clinical care. This summary normalizes information from multiple sources, and as a consequence, information in this document may materially change the coding, format and clinical context of patient data. In addition, data may be omitted in some cases. CLINICAL DECISIONS SHOULD BE BASED ON THE PRIMARY CLINICAL RECORDS. [facility] [facility]. provides no warranty or guarantee of the accuracy or completeness of information in this document.
[2023-02-23 23:20] LABS: Basophils Percent Auto 0.9 % (0.2-2.0); Eosinophils Absolute Auto 0.1 10^3/uL (0.0-0.7); Eosinophils Percent Auto 1.9 % (0.9-7.0); Hematocrit 33.1 % (36.0-48.0); Hemoglobin 11.1 g/dL (12.0-16.0); Lymphocytes Absolute Auto 1.9 10^3/uL (1.2-3.8); Lymphocytes Percent Auto 40.9 % (20.5-60.0); Mean Corpuscular HGB Conc 33.5 g/dL (29.9-35.2); Mean Corpuscular Hemoglobin 31.3 pg (26.7-34.0); Mean Corpuscular Volume 93.2 fL (81.0-99.0); Mean Platelet Volume 12.7 fL (9.5-13.5); Monocytes Absolute Auto 0.3 10^3/uL (0.3-0.8); Monocytes Percent Auto 5.6 % (1.7-12.0); Neutrophils Absolute Auto 2.4 10^3/uL (1.4-6.5); Neutrophils Percent Auto 50.7 % (43.0-75.0); Platelet Count 192 10^3/uL (150-450); Red Blood Count 3.55 10^6/uL (4.20-5.40); Red Cell Distribution Width 12.4 % (11.0-15.0); White Blood Count 4.6 10^3/uL (4.0-11.0)
[2023-02-23 23:37] LABS: Alanine Aminotransferase 22 U/L (14-59); Albumin Globulin Ratio 1.3; Albumin Level 3.3 g/dL (3.4-5.0); Alkaline Phosphatase 54 U/L (46-116); Anion Gap 12.5; Aspartate Amino Transferase 22 U/L (15-37); BUN Creatinine Ratio 7.5; Bilirubin Total 0.3 mg/dL (0.2-1.0); Calcium 8.2 mg/dL (8.5-10.1); Carbon Dioxide 22.7 mmol/L (21.0-32.0); Chloride 106 mmol/L (98-107); Estimated GFR (African America >60 (>=60); Estimated GFR (Non-African Ame >60 (>=60); Globulin 2.6 g/dL; Glucose 180 mg/dL (74-106); Magnesium 1.8 mg/dL (1.8-2.4); Phosphorus 3.5 mg/dL (2.6-4.7); Potassium 3.2 mmol/L (3.5-5.1); Sodium 138 mmol/L (136-145); Total Protein 5.9 g/dL (6.4-8.2); Triglycerides 63 mg/dL (<=150)
== END 2023-02-23 17:23 | disposition home or self-care (01) ==
LOC: LAB 17:22
PROVIDERS: PCP Nurse Practitioner
DX: I77.4 Celiac artery compression syndrome (principal)
CPT/HCPCS: 36415; 80053; 83735; 84100; 84478; 85025

== ENCOUNTER 2023-06-14 13:16 | Inpatient (IN) | payer OTHER, SELFPAY ==
[2023-06-14] VITALS (7 sets, daily range): BP systolic 112–139; BP diastolic 76–97; PULSE 59–91; TEMP 36.4–37.1; O2SAT 98–100; BMI 27.1; BMI 27.4
--- NOTE | 2023-06-14 13:28 | CT_ITS ---
[address] [address] Patient Name: JUAN KONG MRN: [id number] date: 1990 Sex: F Assigned Patient Location: ER Current Patient Location: [facility] Accession/Order Number: [id number] Exam Date: 06/14/2023 14:13 Report Date: 06/14/2023 14:49 At the request of: JACKSON RAYGOZA Procedure: CT abdomen pelvis w con EXAMINATION: CT abdomen pelvis w con HISTORY: Vomiting, pain in LUQ, hx PEG tube COMPARISON: CT abdomen pelvis 06/09/2022 TECHNIQUE: Axial, Coronal, and Sagittal images were obtained without and/or with IV contrast as indicated by examination type. Dose reduction techniques were achieved by using automated exposure control and/or adjustment of mA and/or kV according to patient size and/or use of iterative reconstruction technique. FINDINGS: LUNG BASES: No visible pulmonary or pleural disease. LIVER: Numerous small rounded hypodensities scattered throughout the liver simple nonspecific but favoring benign cysts. BILIARY: Cholecystectomy. PANCREAS: No lesion, fluid collection, or abnormal duct dilatation. SPLEEN: No enlargement or focal lesion. ADRENALS: No mass or enlargement. KIDNEYS: No mass, obstruction, or calcification. BOWEL/MESENTERY: Prior gastric bypass with PEG tube which appears to be positioned within the stomach. No visible mass, obstruction, or bowel wall thickening. No free air or free fluid. AORTA/VASCULAR: No aneurysm or dissection. RETROPERITONEUM: No mass or adenopathy. LYMPH NODES: No adenopathy. URINARY BLADDER: No visible focal wall thickening, lesion, or calculus. PELVIC ORGANS: Prior hysterectomy. ABDOMINAL WALL: No mass or hernia. BONES: No bony lesion or fracture. OTHER: Negative. CT/CT abdomen pelvis w con IMPRESSION: 1. No appreciable acute findings. 2. Prior gastric bypass. Patient's PEG tube appears to be within a small residual gastric pouch. No free air or free fluid to suggest that the PEG tube has been dislodged. Contrast could be administered through the PEG tube with additional imaging if clinical concern. Electronically authenticated by: ALVERTO PHAM Date: 06/14/2023 14:49
--- NOTE | 2023-06-14 13:31 | ED_ITS ---
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 Patient had a previous gastric bypass years ago, she states she has been hospitalized multiple times for malnutrition and a PEG tube was recently placed at [facility] where she sees a GI doctor and general surgeon. She states the PEG tube has been used to supplement her nutrition but for the past several weeks she has had nausea and difficulty tolerating tube feedings. She states she has had intermittent pain in the left upper quadrant but in the last day the pain seems to be much worse and radiates to the left flank. She has had no fevers, diarrhea, upper respiratory symptoms. She states when she goes to give herself fluids or tube feedings, she starts to retch. She is to have PICC line placement in the next several days, she states today that pain seem much worse and her PCP recommended she come to the ER. She has also had a previous hysterectomy and previous MALS procedure at [facility]. Related Data Home Medications ?Medication ?Instructions ?Recorded ?Confirmed escitalopram oxalate 10 mg tablet 20 mg PO QDAY 09/17/22 11/16/22 hydroxyzine HCl 25 mg tablet 25 mg PO BID PRN anxiety 09/17/22 11/16/22 levothyroxine 125 mcg tablet 125 mcg PO QDAY 09/17/22 11/16/22 liothyronine 5 mcg tablet 5 mcg PO QDAY 09/17/22 11/16/22 topiramate 100 mg tablet 100 mg PO BID 09/17/22 11/16/22 mirtazapine 15 mg tablet (Remeron) 15 mg PO DAILY 11/16/22 11/16/22 Allergies Allergy/AdvReac Type Severity Reaction Status Date / Time adhesive Allergy Rash Verified 06/14/23 13:20 codeine Allergy Vomiting Verified 06/14/23 13:20 NSAIDS (Non-Steroidal Allergy intolerance Verified 06/14/23 13:20 Anti-Inflamma Opioid HPI Opioid Management Most Recent Opioid Data: Last Pain Scale 9 06/14/23 13:58 Last MAR Pain Assessment 06/14/23 13:43 Review of Systems ROS Constitutional Denies: fever or chills Ears, nose, mouth, and throat Denies: throat pain or nasal congestion Cardiovascular Denies: chest pain Respiratory Denies: shortness of breath Gastrointestinal Reports: abdominal pain, nausea and vomiting; Denies: diarrhea Genitourinary Denies: painful urination Musculoskeletal Reports: back pain Integumentary/Breast Denies: rash Neurological Denies: headache Endocrine Denies: excessive urination Hematologic/Lymphatic Denies: easy bruising or easy bleeding [facility] Medical History Anemia ?D64.9 - Anemia, unspecified (ICD-10) Anxiety ?F41.9 - Anxiety disorder, unspecified (ICD-10) Asthma ?J45.909 - Unspecified asthma, uncomplicated (ICD-10) COVID-19 (~02/2020) ?U07.1 - COVID-19 (ICD-10) Depression ?F32.A - Depression, unspecified (ICD-10) Dyspareunia Fibromyalgia ?M79.7 - Fibromyalgia (ICD-10) GERD (gastroesophageal reflux disease) ?K21.9 - Gastro-esophageal reflux disease without esophagitis (ICD-10) Headache ?R51.9 - Headache, unspecified (ICD-10) Hypothyroidism (acquired) ?E03.9 - Hypothyroidism, unspecified (ICD-10) Kidney stones ?N20.0 - Calculus of kidney (ICD-10) Mechanical ileus (01/31/20) ?K56.609 - Unspecified intestinal obstruction, unspecified as to partial versus complete obstruction (ICD-10) Migraine ?G43.909 - Migraine, unspecified, not intractable, without status migrainosus (ICD-10) Ovarian cyst ?N83.209 - Unspecified ovarian cyst, unspecified side (ICD-10) PCOS (polycystic ovarian syndrome) ?E28.2 - Polycystic ovarian syndrome (ICD-10) Pelvic pain ?R10.2 - Pelvic and perineal pain (ICD-10) PONV (postoperative nausea and vomiting) ?R11.2 - Nausea with vomiting, unspecified (ICD-10) ?Z98.890 - Other specified postprocedural states (ICD-10) Shingles ?B02.9 - Zoster without complications (ICD-10) Sleep apnea ?G47.30 - Sleep apnea, unspecified (ICD-10) Syncope (07/07/13) ?R55 - Syncope and collapse (ICD-10) Surgical History Delivery by section (06/19/19) Delivery by section (01/17/18) Delivery by section (~2016) H/O arthroscopy of right knee (08/07/20) ?Z98.890 - Other specified postprocedural states (ICD-10) H/O colonoscopy (~2018) ?Z98.890 - Other specified postprocedural states (ICD-10) H/O laparoscopy (07/18/20) ?Z98.890 - Other specified postprocedural states (ICD-10) H/O laparoscopy (11/10/19) ?Z98.890 - Other specified postprocedural states (ICD-10) H/O shoulder surgery (2022) ?Z98.890 - Other specified postprocedural states (ICD-10) H/O: hysterectomy (11/12/20) ?Z90.710 - Acquired absence of both cervix and uterus (ICD-10) History of appendectomy (09/25/19) ?Z90.49 - Acquired absence of other specified parts of digestive tract (ICD- 10) History of cholecystectomy (10/06/13) ?Z90.49 - Acquired absence of other specified parts of digestive tract (ICD- 10) History of esophagogastroduodenoscopy (EGD) (10/04/13) ?Z98.890 - Other specified postprocedural states (ICD-10) History of hernia repair (03/20/21) ?Z98.890 - Other specified postprocedural states (ICD-10) ?Z87.19 - Personal history of other diseases of the digestive system (ICD-10) History of hip surgery ?Z98.890 - Other specified postprocedural states (ICD-10) History of liver biopsy (~04/2020) ?Z98.890 - Other specified postprocedural states (ICD-10) History of thoracic surgery (~2021) ?Z98.890 - Other specified postprocedural states (ICD-10) Hx of tonsillectomy ?Z90.89 - Acquired absence of other organs (ICD-10) S/P laparoscopic sleeve gastrectomy (09/03/20) ?Z98.84 - Bariatric surgery status (ICD-10) S/P left knee arthroscopy ?Z98.890 - Other specified postprocedural states (ICD-10) S/P right knee arthroscopy (07/21/18) ?Z98.890 - Other specified postprocedural states (ICD-10) S/P right knee arthroscopy ?Z98.890 - Other specified postprocedural states (ICD-10) Family History Other Family history of cancer Family history of diabetes mellitus Family history of hypertension Family history of myocardial infarction PONV (postoperative nausea and vomiting) Social History Within the past year, how often did you have a drink containing alcohol: never Score interpretation: A score less than 3 is consistent with normal alcohol consumption. Smoking status: Never smoker Highest level of school completed/degree received: Master's degree Exam Narrative Exam Narrative: Gen.: Awake, alert, in no distress Head: Normocephalic, atraumatic ENT: Moist mucous membranes Respiratory: No respiratory distress, lungs clear bilaterally Cardio: Regular rate and rhythm Gastrointestinal: Abdomen is soft, nondistended and Tender to palpation in the left upper quadrant at the site of the PEG tube. PEG tube appears appropriately inserted with no drainage or erythema of the abdominal wall. Mild left flank pain with no CVA tenderness Extremities: Moves extremities equally Psych: Normal mood and affect Neuro: No focal neuro deficit Skin: Warm, dry, intact Constitutional Vital Signs, click to edit/add: Last Vital Signs Temp 98.7 F 06/14/23 13:20 Pulse 91 H 06/14/23 13:20 Resp 16 06/14/23 13:20 BP 129/97 H 06/14/23 13:20 Pulse Ox 100 06/14/23 13:20 O2 Del Method Room Air 06/14/23 13:20 Course Vital Signs Vital signs: Vital Signs Temperature 98.7 F 06/14/23 13:20 Pulse Rate 91 H 06/14/23 13:20 Respiratory Rate 16 06/14/23 13:20 Blood Pressure 129/97 H 06/14/23 13:20 Pulse Oximetry 100 06/14/23 13:20 Oxygen Delivery Method Room Air 06/14/23 13:20 Temperature 98.7 F 06/14/23 13:20 Pulse Rate 91 H 06/14/23 13:20 Respiratory Rate 16 06/14/23 13:20 Blood Pressure 129/97 H 06/14/23 13:20 Pulse Oximetry 100 06/14/23 13:20 Oxygen Delivery Method Room Air 06/14/23 13:20 Medical Decision Making MDM Narrative Medical decision making narrative: Ultrasound IV was established, labs obtained and urine was sent. Patient is not significantly dehydrated based on her lab studies, she is hemodynamically stable with appropriate vital signs. Labs do not show any significant abnormalities and CT of the abdomen and pelvis shows PEG tube in gastric pouch without other acute abnormalities. Patient was reevaluated by attending physician after multiple rounds of IV fluids, pain medication, Ativan, GI meds. She continues to state that she has had no pain relief, she does not feel she can go home and continues to have intractable pain and nausea. I discussed the case with [facility] transfer center, Dr. Sumner accepted for the hospitalist service at [facility] although we were made aware by the transfer center that the patient may not have a bed for at least several days. Patient was made aware by attending physician that she will not likely be transferred for least 1 to 2 days at a minimum. Patient states that she came to the emergency department here Instead of driving to [facility] to avoid a lengthy ER wait at [facility]. She Verbalizes understanding that she may not be transferred for several days. She continues to request to transfer to [facility] where she has been seen for surgery previously. I obtained records from [facility] where it appears the patient has been going for her care over the last year since she stopped coming to this facility. In the last 2 months, she has had multiple visits to the emergency department including multiple admissions with EGD done most recently as 1 month ago. These records will be sent with the patient for admission and eventual transfer. Case discussed with Dr. Alas for hospitalist service at this facility and he is agreeable to admitting the patient at this facility for symptom control until she can be transferred to [facility]. Medical Records Medical records reviewed: Yes I reviewed the patient's medical records Lab Data Lab results reviewed: Yes I reviewed the patient's lab results Labs: Lab Results 06/14/23 06/14/23 Range/Units 13:39 13:43 WBC 4.8 (4.0-11.0) 10^3/uL RBC 4.06 L (4.20-5.40) 10^6/uL Hgb 12.4 (12.0-16.0) g/dL Hct 37.2 (36.0-48.0) % MCV 91.6 (81.0-99.0) fL MCH 30.5 (26.7-34.0) pg MCHC 33.3 (29.9-35.2) g/dL RDW 13.4 (11.0-15.0) % Plt Count 239 (150-450) 10^3/uL MPV 11.6 (9.5-13.5) fL Neut % (Auto) 52.5 (43.0-75.0) % Lymph % (Auto) 37.5 (20.5-60.0) % [place] % (Auto) 6.7 (1.7-12.0) % Eos % (Auto) 2.3 (0.9-7.0) % Baso % (Auto) 0.8 (0.2-2.0) % Neut # (Auto) 2.5 (1.4-6.5) 10^3/uL Lymph # (Auto) 1.8 (1.2-3.8) 10^3/uL [place] # (Auto) 0.3 (0.3-0.8) 10^3/uL Eos # (Auto) 0.1 (0.0-0.7) 10^3/uL Baso # (Auto) 0.0 (0.0-0.1) 10^3/uL Abs Immat Gran (auto) 0.01 (0.00-0.03) 10^3/uL Imm/Tot Granulo (auto) 0.2 (0.0-0.5) % Sodium 140 (136-145) mmol/L Potassium 3.4 L (3.5-5.1) mmol/L Chloride 104 (98-107) mmol/L Carbon Dioxide 25.3 (21.0-32.0) mmol/L Anion Gap 14.1 BUN 13.0 (7.0-18.0) mg/dL Creatinine 0.83 (0.55-1.02) mg/dL Est GFR ( Amer) >60 (>=60) Est GFR (Non-Af Amer) >60 (>=60) BUN/Creatinine Ratio 15.7 Glucose 89 (74-106) mg/dL Lactate 0.9 (0.4-2.0) mmol/L Calcium 9.3 (8.5-10.1) mg/dL Total Bilirubin 0.5 (0.2-1.0) mg/dL AST 30 (15-37) U/L ALT 23 (14-59) U/L Alkaline Phosphatase 67 (46-116) U/L Total Protein 7.8 (6.4-8.2) g/dL Albumin 4.0 (3.4-5.0) g/dL Globulin 3.8 g/dL Albumin/Globulin Ratio 1.1 Lipase 49.0 (16.0-77.0) U/L Urine Color Lt. yellow (YELLOW) Urine Clarity Clear (CLEAR) Urine pH 7.5 (5.0-9.0) Ur Specific [place] <=1.005 A (1.005-1.025) Urine Protein Negative (NEG/TRACE) mg/dL Urine Glucose (UA) Negative (NEGATIVE) mg/dL Urine Ketones Negative (NEGATIVE) mg/dL Urine Occult Blood Negative (NEGATIVE) Urine Nitrite Negative (NEGATIVE) Urine Bilirubin Negative (NEGATIVE) Urine Urobilinogen 0.2 (0.2-1.0) EU/dL Ur Leukocyte Esterase Negative (NEGATIVE) Imaging Data CT scan - abdomen: Attestation: I have reviewed the pertinent imaging results. Radiologist's impression: ITS Impressions Abdomen/Pelvis CT 06/14/23 13:28 IMPRESSION: 1. No appreciable acute findings. 2. Prior gastric bypass. Patient's PEG tube appears to be within a small residual gastric pouch. No free air or free fluid to suggest that the PEG tube has been dislodged. Contrast could be administered through the PEG tube with additional imaging if clinical concern. Electronically authenticated by: ALVERTO PHAM Date: 06/14/2023 14:49 Discharge Plan Discharge Chief Complaint: Abdominal Pain Patient Disposition: [facility] Time of Disposition Decision: 16:14 Discharge location: [facility] Mode of Transportation: EMS
[2023-06-14] MEDS: FAMOTIDINE/PF 20 MG/2 ML VIAL IV (13:43)
[2023-06-14] MEDS: PROMETHAZINE HCL 12.5 MG in 0.9 % SODIUM CHLORIDE 50 ML 202 MG IV (13:43)
[2023-06-14] MEDS: 0.9 % SODIUM CHLORIDE 1,000 ML 1000 ML IV (13:43)
[2023-06-14] MEDS: HYDROMORPHONE HCL 1 MG/ML CARTRIDGE IV (13:43)
--- OUTSIDE RECORDS SUMMARY | 2023-06-14 13:51 | XMS_ITS | CCD ---
Author Organization [facility] Care Team Providers Care Dag Coater Name Role Phone Unavailable Primary Care Provider Unavailabl e Generic Provider MD, No Assigned Pcp Primary Car e Provider Unavailable Allergies Allergy Classification Reported Allergen(s) Allergy Type Date of Onset Reaction(s) Facility (5 sources) Codeine Drug Allergy 3 Nausea/vomiting [facility] (5 sources) Non-steroidal anti-inflammato ry agent Propensity to adverse reactions 3 Nausea/vomiting [facility] Work Phone: Medications Current Medications Medication Drug Class(es) Dates Sig (Normalized) Sig (Original) acetaminophen 500 mg oral tablet (5 sources) Start: 06-23-2022 take 2 tablets by mouth every six hours as needed acetaminophen (Tylenol) 500 mg tablet Take 2 tablets (1,000 mg) by mouth every 6 hours if needed. 0 06/23/2022 Active [id number] 200 actuat albuterol 0.09 mg/actuat metered dose inhaler (5 sources) beta2-Adrenergic Agonist take 2 puff(s) by inhalation every four hours albuterol 90 mcg/actuation inhaler Inhale 2 puffs every 4 hours if needed. 0 Active baclofen 5 mg oral tablet (2 sources) gamma-Aminobutyric Acid-ergic Agonist Start: 12-09-2022 End: 01-13-2023 take 1 tablet by mouth twice daily baclofen (Lioresal) 5 mg tablet Take 1 tablet (5 mg) by mouth 2 times a day. 0 12/09/2022 01/13/2023 Active busPIRone hydrochloride 10 mg oral tablet (5 sources) Start: 11-10-2022 take 1 tablet by mouth twice daily busPIRone (Buspar) 10 mg tablet Take 1 tablet (10 mg) by mouth 2 times a day. 0 11/10/2022 Active docusate sodium 100 mg oral capsule (5 sources) Start: 06-23-2022 take 1 capsule by mouth three times daily as needed docusate sodium (Colace) 100 mg capsule Take 1 capsule (100 mg) by mouth 3 times a day as needed. 0 06/23/2022 Active escitalopram 20 mg oral tablet (5 sources) Serotonin Reuptake Inhibitor take 1 tablet by mouth once daily escitalopram (Lexapro) 20 mg tablet Take 1 tablet (20 mg) by mouth once daily. 0 Active estradiol 1 mg oral tablet (5 sources) Estrogen Start: 10-31-2022 take 1 tablet by mouth once daily estradiol (Estrace) 1 mg tablet Take 1 tablet (1 mg) by mouth once daily. 0 10/31/2022 Active famotidine 40 mg oral tablet (5 sources) Histamine-2 Receptor Antagonist Start: 02-03-2022 take 1 tablet by mouth once daily famotidine (Pepcid) 40 mg tablet Take 1 tablet (40 mg) by mouth once daily. 0 02/03/2022 Active ferrous sulfate 325 mg oral tablet (5 sources) take 1 tablet by mouth once daily at mealtime ferrous sulfate 325 (65 Fe) MG tablet Take 1 tablet by mouth once daily with a meal. 0 Active fluticasone / salmeterol (5 sources) Corticosteroid, beta2-Adrenergic Agonist Start: 03-31-2021 take 1 puff(s) by inhalation every twelve hours fluticasone propion-salmeteroL (Advair Diskus) 100-50 mcg/dose diskus inhaler Inhale 1 puff every 12 hours. 0 03/31/2021 Active hydrOXYzine hydrochloride 25 mg oral tablet (5 sources) Antihistamine Start: 11-13-2022 take 1 tablet by mouth three times daily as needed for anxiety hydrOXYzine HCL (Atarax) 25 mg tablet Take 1 tablet (25 mg) by mouth 3 times a day as needed for anxiety. 0 11/13/2022 Active Start: 11-13-2022 take 1 tablet by mouth once hy drOXYzine HCL (Atarax) 25 mg tablet Take 1 tablet (25 mg) by mouth 1 time. 0 11/13/2022 Active levothyroxine sodium 0.1 mg oral tablet (5 sources) l-Thyroxine Start: 04-07-2021 take 1 tablet by mouth once daily levothyroxine (Synthroid, Levoxyl) 100 mcg tablet Take 1 tablet (100 mcg) by mouth once daily. 0 04/07/2021 Active linaclotide 0.145 mg oral capsule (5 sources) Guanylate Cyclase-C Agonist Start: 12-14-2022 End: 02-12-2023 linaCLOtide (Linzess) 145 mcg capsule Take 1 capsule (145 mcg) by mouth. 0 12/14/2022 02/12/2023 Active liothyronine sodium 0.005 mg oral tablet (5 sources) l-Triiodothyronin e Start: 09-11-2019 take 1 tablet by mouth once daily liothyronine (Cytomel) 5 mcg tablet Take 1 tablet (5 mcg) by mouth once daily. 0 09/11/2019 Active magnesium gluconate 500 mg oral tablet (5 sources) magnesium, as gluconate, (Magonate) 27 mg magnesium (500 mg) tablet Take 500 mg by mouth once daily. 0 Active meclizine hydrochloride 12.5 mg oral tablet (5 sources) Antiemetic Start: 06-10-2022 take 1 tablet by mouth three times daily as needed for dizziness meclizine (Antivert) 12.5 mg tablet Take 1 tablet (12.5 mg) by mouth 3 times a day as needed for dizziness. 0 06/10/2022 Active metoclopramide 5 mg oral tablet (5 sources) Dopamine-2 Receptor Antagonist metoclopramide (Reglan) 5 mg tablet Take 1 tablet (5 mg) by mouth. 0 Active mirtazapine 15 mg oral tablet (5 sources) Start: 11-10-2022 take 1 tablet by mouth once daily at bedtime mirtazapine (Remeron) 15 mg tablet Take 1 tablet (15 mg) by mouth once daily at bedtime. 0 11/10/2022 Active pantoprazole 40 mg delayed release oral tablet (5 sources) Proton Pump Inhibitor Start: 12-01-2022 take 1 tablet by mouth once daily before mealtime pantoprazole (ProtoNix) 40 mg EC tablet Take 1 tablet (40 mg) by mouth once daily in the morning. Take before meals. 0 12/01/2022 Active polyethylene glycol 3350 57550 mg powder for oral solution (5 sources) Osmotic Laxative Start: 06-23-2022 take 17 g by mouth every twenty-four hours as needed polyethylene glycol (Glycolax, Miralax) 17 gram/dose powder Take 17 g by mouth once daily as needed. 0 06/23/2022 Active Start: 06-23-2022 polyethylene g lycol (Glycolax, Miralax) 17 gram/dose powder Take 17 g by mouth twice a day. 0 06/23/2022 Active potassium bicarbonate 25 meq effervescent oral tablet (5 sources) Start: 10-24-2022 take 1 tablet by mouth once daily Effer-K 25 mEq effervescent tablet Take 1 tablet (25 mEq) by mouth once daily. 0 10/24/2022 Active topiramate 100 mg oral tablet (5 sources) take 0.5 tablet by mouth twice daily topiramate (Topamax) 100 mg tablet Take 0.5 tablets (50 mg) by mouth 2 times a day. 0 Active Completed/Discontinued Medications Medication Drug Class(es) Dates Sig (Normalized) Sig (Original) 1 ml fentaNYL 0.05 mg/ml injection (1 source) Opioid Agonist Start: 01-13-2023 End: 01-13-2023 fentaNYL PF (Sublimaze) injection 50 mcg 2 ml ondansetron 2 mg/ml injection (6 sources) Serotonin-3 Receptor Antagonist Start: 01-13-2023 End: 01-13-2023 ondansetron (Zofran) injection 4 mg Start: 12-01-2022 take 1 tablet by robinson th every eight hours as needed ondansetron ODT (Zofran-ODT) 4 mg disintegrating tablet Take 1 tablet (4 mg) by mouth every 8 hours if needed for nausea. 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 Past or Other Problems Problem Classification Problem Date Documented Da te Episodic/Chronic Unclassified (3 sources) Onset: 01-14-2023 3 Results Test Name Value Interpretation Reference Range Facil ity ECG 12 leadOrdered By: Leland Zabala on 01-15-2023 Atrial Rate 75 BPM [facility] Work Phone: P [place] 95 degrees [facility] Work Phone: P Offset 200 ms [facility] Work Phone: P Onset 149 ms [facility] Work Phone: PA Interval 144 ms [facility] Work Phone: Q Onset 221 ms [facility] Work Phone: QRS Count 12 beats [facility] Work Phone: QRS Duration 84 ms [facility] Work Phone: QT Interval 420 ms [facility] Work Phone: QTC Calculation(Bazett) 469 [facility] Work Phone: QTC [place]ericia 452 [facility] Work Phone: R [place] 78 degrees [facility] Work Phone: T [place] 36 degrees [facility] Work Phone: T Offset 431 ms [facility] Work Phone: Ventricular Rate 75 BPM [facility] Work Phone: [facility] Work Phone: ECG 12 leadon 01-15-2023 Normal sinus rhythm Normal ECG No previous ECGs available Confirmed by Leland Zabala ([id number]) on 01/15/2023 2:28:35 PM Leland Bryant MD - 01/15/2023 Normal sinus rhythm Normal ECG No previous ECGs available Confirmed by Leland Zabala ([id number]) on 01/15/2023 2:28:35 PM [facility] Work Phone: CBC W Auto Differential pane l (Bld)on 01-13-2023 Basophils (Bld) [#/Vol] 0.04 10*3/uL [facility] Basophils/100 WBC (Bld) 0.7 % 0.0 - 2.0 % [facility] Eosinophils (Bld) [#/Vol] 0.13 10*3/uL [facility] Eosinophils/100 WBC (Bld) 2.2 % 0.0 - 6.0 % [facility] Erythrocyte distribution width (RBC) [Ratio] 12.4 % 11.5 - 14.5 % [facility] Hematocrit (Bld) [Volume fraction] 36.6 % 36.0 - 46.0 % [facility] Hemoglobin (Bld) [Mass/Vol] 12.6 g/dL 12.0 - 16.0 g/dL [facility] Immature granulocytes (Bld) [#/Vol] 0.01 10*3/uL [facility] Immature granulocytes/100 WBC (Bld) 0.2 % 0.0 - 0.9 % [facility] Comment on above: Immature Granulocyte Count (IG) includes promyelocytes, myelocytes and metamyelocytes but does not include bands. Percent differential counts (%) should be interpreted in the context of the absolute cell counts (cells/UL). Lymphocytes (Bld) [#/Vol] 2.26 10*3/uL [facility] Lymphocytes/100 WBC (Bld) 39.0 % 13.0 - 44.0 % [facility] MCH (RBC) [Entitic mass] 30.7 pg 26.0 - 34.0 pg [facility] MCHC (RBC) [Mass/Vol] 34.4 g/dL 32.0 - 36.0 g/dL [facility] MCV (RBC) [Entitic vol] 89 fL 80 - 100 fL [facility] Monocytes (Bld) [#/Vol] 0.41 10*3/uL [facility] Monocytes/100 WBC (Bld) 7.1 % 2.0 - 10.0 % [facility] Neutrophils (Bld) [#/Vol] 2.95 10*3/uL [facility] Comment on above: Percent differential counts (%) should be interpreted in the context of the absolute cell counts (cells/uL). Neutrophils/100 WBC (Bld) 50.8 % 40.0 - 80.0 % [facility] Nucleated RBC/100 WBC (Bld) [Ratio] 0.0 % [facility] Platelets (Bld) [#/Vol] 222 10*3/uL [facility] RBC (Bld) [#/Vol] 4.11 10*6/uL [facility] WBC (Bld) [#/Vol] 5.8 10*3/uL [facility] Comprehensive metabolic 2000 panelon 01-13-2023 Albumin [Mass/Vol] 4.2 g/dL 3.5 - 5.0 g/dL Un [facility] ALP (Bld) [Catalytic activity/Vol] 74 U/L 35 - 125 U/L [facility] ALT [Catalytic activity/Vol] 15 U/L 5 - 40 U/L [facility] Anion gap [Moles/Vol] 10 mmol/L NINF - 19 mmol/L [facility] AST [Catalytic activity/Vol] 26 U/L 5 - 40 U/L [facility] Bilirubin [Mass/Vol] 0.5 mg/dL 0.1 - 1.2 mg/dL [facility] Calcium [Mass/Vol] 9.1 mg/dL 8.5 - 10. 4 mg/dL [facility] Chloride [Moles/Vol] 103 mmol/L 97 - 107 mmol/L [facility] CO2 [Moles/Vol] 23 mmol/L Low 24 - 31 mmol/L [facility] Creatinine [Mass/Vol] 0.70 mg/dL 0.40 - 1.60 mg/dL [facility] GFR/1.73 sq M.predicted MDRD (S/P/Bld) [Vol rate/Area] - PINF [facility] Comment on above: Calculations of jessica mated GFR are performed using the 2020 CKD-EPI Study Refit equation without the race variable for the IDMS-Traceable creatinine methods. https://jasn.asnjournals.org/content/early/ASN.0597514 988 Glucose [Mass/Vol] 89 mg/dL 65 - 99 mg/dL Uni [facility] Interpretation and review of laboratory results Abnormal [facility] Potassium [Moles/Vol] 3.5 mmol/L 3.4 - 5.1 mmol/L [facility] Protein [Mass/Vol] 6.9 g/dL 5.9 - 7.9 g/dL [facility] Sodium [Moles/Vol] 136 mmol/L 133 - 145 mmol/L [facility] Urea nitrogen [Mass/Vol] 13 mg/dL 8 - 25 mg/dL [facility] ECG 12-LEADon 01-13-2023 ECG 12-LEAD Ventricular Rate 75 Atrial Rate 75 P-R Interval 144 QRS Duration 84 Q-T Interval 420 QTC Calculation(Bazett) 469 P [place] 95 R [place] 78 T [place] 36 QRS Count 12 Q Onset 221 P Onset 149 P Offset 200 T Offset 431 QTC Fredericia 452 Diagnosis Normal sinus rhythm Normal ECG No previous ECGs available Confirmed by Leland Zabala ([id number]) on 01/15/2023 2:28:35 PM Normal [facility] HCG ( test) IA.rapi d Ql (U)Ordered By: Gayle Gagnon on 01-13-2023 HCG ( test) Ql (U) Negative NEGATIVE [facility] Interpretation and review of laboratory results Normal [facility] Urinalysis complete panel (U )on 01-13-2023 Appearance (U) Clear Clear [facility] Bilirubin (U) [Mass/Vol] Negative NEGATIVE [facility] Color (U) Light-Yellow Light-Yellow, Yellow, Dark-Yellow [facility] Glucose Auto test strip (U) [Mass/Vol] Normal Normal mg/dL [facility] Interpretation and review of laboratory results Normal [facility] Ketones (U) [Mass/Vol] Negative NEGATIVE mg/dL [facility] Leukocyte esterase Auto test strip Ql (U) Negative NEGATIVE [facility] Nitrite Auto test strip Ql (U) Negative NEGATIVE [facility] pH (U) 7.0 [pH] 5.0, 5.5, 6.0, 6.5, 7.0, 7.5, 8.0 [facility] Protein (U) [Mass/Vol] Negative NEGATIVE, 10 (TRACE), 20 (TRACE) mg/dL [facility] RBC (U) [#/Vol] Negative NEGATIVE [facility] Specific gravity (U) [Rel density] 1.010 1.005 - 1.035 [facility] Urobilinogen (U) [Mass/Vol] Normal Normal mg/dL [facility] Vital Signs Date Time Vital Sign Value Performing Clinician Facility 01-14-2023 10:39-0500 Diastolic blood pressure 58 mm[Hg] Sherry Holley MD Work Phone: [facility] 01-14-2023 10:39-0500 Systolic blood pressure 119 mm[Hg] Sherry Holley MD Work Phone: [facility] 01-13-2023 21:55-0500 Diastolic blood pressure 82 mm[Hg] Xiomara Fenoff DO Work Phone: [facility] 01-13-2023 21:55-0500 Systolic blood pressure 122 mm[Hg] Xiomara Fenoff DO Work Phone: [facility] 01-13-2023 20:46-0500 Heart rate 64 /min Xiomara Fenoff DO Work Phone: [facility] 01-13-2023 20:46-0500 Respiratory rate 16 /min Xiomara Fenoff DO Work Phone: [facility] 01-13-2023 20:46-0500 SaO2% (BldA) [Mass fraction] 98 % Xiomara Fenoff DO Work Phone: [facility] 01-13-2023 18:41-0500 Body height 167.6 cm Xiomara Fenoff DO Work Phone: [facility] 01-13-2023 18:41-0500 Body mass index (BMI) [Ratio] 29.05 kg/m2 Xiomara Fenoff DO Work Phone: [facility] 01-13-2023 18:41-0500 Body temperature 97.3 [degF] Xiomara Fenoff DO Work Phone: [facility] 01-13-2023 18:41-0500 Body weight 81.65 kg Xiomara Fenoff DO Work Phone: [facility] Encounters Encounter Date Encounter Type Care Provider Facility Start: 01-14-2023 End: 01-14-2023 Subsequent hospital visit by physician Ludwin Garciav1 [facility] Comment on above: Arrived Start: 01-14-2023 End: 01-14-2023 Office outpatient new 60 minutes Sherry Holley MD Work Phone: [facility] Comment on above: Median arcuate ligam ent syndrome (CMS/HCC) (Primary Dx) Start: 01-13-2023 End: 01-13-2023 Emergency department patient visit Xiomara N Fenoff DO Work Phone: [facility] Comment on above: Generalized abdomina l pain (Primary Dx); Median arcuate ligament syndrome (CMS/HCC) Start: 12-21-2022 End: 12-21-2022 Office outpatient new 60 minutes Sherry Holley MD Work Phone: [facility] Comment on above: Median arcuate ligam ent syndrome (CMS/HCC) (Primary Dx) Procedures Date Procedure Procedure Detail Performing Clinician Start: 01-14-2023 Ecg routine ecg w/le ast 12 lds trcg only w/o i&r Xiomara N Fenoff DO Work Phone: Start: 01-13-2023 Urnls dip stick/tabl et rgnt auto w/o microscopy Xiomara N Fenoff DO Work Phone: Start: 01-13-2023 Comprehensive metabo lic panel Xiomara N Fenoff DO Work Phone: Start: 10-26-2022 Thyrotropin [Units/v olume] in Serum or Plasma Xiomara Fenoff DO Work Phone: Plan of Treatment Date Care Activity Detail Author Start: 2039 Zoster Vaccines (1 o f 2) Zoster Vaccines (1 of 2) [facility] Start: 09-21-2026 DTaP/Tdap/Td Vaccine s (2 - Td or Tdap) DTaP/Tdap/Td Vaccines (2 - Td or Tdap) [facility] Start: 10-27-2023 Thyroid stimulating hormone measurement TSH Level [facility] Start: 01-14-2023 End: 01-14-2023 Clinical Support [facility] Start: 12-21-2022 End: 12-21-2024 Vascular US mesenteric artery duplex complete Vascular US mesenteric artery duplex complete Vascular Ultrasound Routine Median arcuate ligament syndrome (CMS/HCC) Expected: 12/21/2022 (Approximate), Expires: 12/21/2024 [facility] Service Area Work Phone: Comment on above: Expected: 12/21/2022 (Approximate), Expires: 12/21/2024 Start: 04-15-2021 COVID-19 Vaccine (3 - Booster for Woo series) COVID-19 Vaccine (3 - Booster for Woo series) [facility] Start: 2010 Screening for malign ant neoplasm of cervix [facility] Start: 2007 Hepatitis C screening Hepatitis C [facility] Start: 1990 MMR Vaccines (1 of 1 - Standard series) MMR Vaccines (1 of 1 - Standard series) [facility] Start: 1990 Varicella vaccination Varicell a Vaccines (1 of 2 - 2-dose childhood series) [facility] Start: 1989 Hepatitis B Vaccines (1 of 3 - 3-dose series) Hepatitis B Vaccines (1 of 3 - 3-dose series) [facility] Start: 1989 HIV screening HIV Screening [facility] Start: 1989 Lipid panel Lipid Panel [facility] Start: 1989 Yearly Adult Physical Yearly Adult P hysical [facility] End: 01-13-2023 ECG 12 lead [facility] Service Area Work Phone: Comment on above: Once for 1 Occurrenc es starting 01/13/2023 until 01/13/2023 Payers Date Payer Category Payer Unknown [employer] [facility] [id number] 2022-Present [address] [place] [address] [id number] Social History Date Type Detail Facility Start: 12-21-2022 Tobacco smoking status NHIS Never smoked tobacco [facility] Work Phone: Start: 12-21-2022 Tobacco use and exposure Smokeless tobacco non-user [facility] Work Phone: Start: 12-21-2022 End: 01-14-2023 Alcohol intake Lifetime non-drinker (finding) [facility] Work Phone: Start: 12-21-2022 End: 01-14-2023 History of Social function [facility] Work Phone: Start: 12-21-2022 End: 01-14-2023 Alcohol Use Disorder Identification Test - Consumption [AUDIT-C] [facility] Work Phone: How often to you hav e a drink containing alcohol? Never [facility] Work Phone: How many standard dr inks containing alcohol do you have on a typical day? Patient does not drink [facility] Work Phone: Start: 1990 Sex Assigned At Not on file [facility] Work Phone: Start: 12-11-2022 End: 01-14-2023 Exposure to SARS-CoV-2 (event) Not sure [facility] Medical Equipment Procedure Code Equipment Code Equipment Origin al Text Equipment Identifier Dates One touch Verio strips for One Touch Verio meter; test 4 times a day [id number] Start: 01-16-2019 History of Present illness Narrative 01-14-2023 Sherry Holley MD - 01/14/2023 10:00 AM EST Note Date & Type Note Facility 01-14-2023 History of Present illness Narrative Vascular Surgery Consultation, History, Physical Abbey Phipps is a 32 y.o. year old female patient. History: Patient is a 32-year-old woman who is suffering from chronic midepigastric pain with any oral intake. This began over a decade ago when she had some discomfort postprandially and underwent a cholecystectomy. She was doing otherwise well until she had her 3 children. With her last child in 2019 which she delivered by as with her other earlier to, she was having severe epigastric abdominal pain with eating and this persisted postoperatively. 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 She was seen at [facility] by Dr. Valladares and underwent an appendectomy when she arrived with severe hypertension and abdominal pain. Resecting this did not relieve her pain syndrome and she subsequently underwent a gastric sleeve operation for her weight and then this was revised to a gastric bypass. She did lose some weight and then unintentionally lost another 20 pounds and currently suffers from frequent episodes of hypoglycemia and weakness. She is unable to eat any food currently and gets her nutrition via a PICC line and TPN. She had a CT angiogram recently at [facility] but this is not available for my review. She had a duplex today which shows modest velocity elevations over 200 cm/s with inspiration and reduction in normal with expiration. This was empirically difficult study because of her body habitus mostly from the high takeoff of her celiac axis and depth. The examination did cause her significant pain as well. She is scheduled for a celiac plexus block on February 10, 2023. This is with Dr. Ramos over the [facility]. Currently any oral intake will result in nausea and vomiting. Past Medical History: Diagnosis Date Hypothyroidism Median arcuate ligament syndrome (CMS/HCC) Past Surgical History: Procedure Laterality Date APPENDECTOMY SECTION, CLASSIC x3 CHOLECYSTECTOMY CT ABDOMEN PELVIS ANGIOGRAM W AND/OR WO IV CONTRAST 12/14/2022 CT ABDOMEN PELVIS ANGIOGRAM W AND/OR WO IV CONTRAST 12/14/2022 ERCP W/ SPHINCTEROTOMY AND BALLOON DILATION GASTRIC BYPASS 01/2022 Active Ambulatory Problems Diagnosis Date Noted No Active Ambulatory Problems Resolved Ambulatory Problems Diagnosis Date Noted No Resolved Ambulatory Problems Past Medical History: Diagnosis Date Hypothyroidism Median arcuate ligament syndrome (CMS/HCC) Review of Systems Constitutional: Negative. HENT: Negative. Eyes: Negative. Respiratory: Negative. Cardiovascular: Negative. Gastrointestinal: Negative. Endocrine: Negative. Genitourinary: Negative. Musculoskeletal: Negative. Skin: Negative. Allergic/Immunologic: Negative. Neurological: Negative. Hematological: Negative. Psychiatric/Behavioral: Negative. Allergies Allergen Reactions Codeine Nausea/vomiting Nsaids (Non-Steroidal Anti-Inflammatory Drug) Nausea/vomiting Vitals: Visit Vitals BP 119/58 Physical Exam: Vascular Physical Exam Vitals and nursing note reviewed. Constitutional: General: She is awake. HENT: Head: Normocephalic and atraumatic. Eyes: General: Vision grossly intact. Neck: Comments: Sunken supraclavicular space, loss of fat Cardiovascular: Rate and Rhythm: Normal rate and regular rhythm. Pulses: Radial pulses are 2+ on the right side and 2+ on the left side. Dorsalis pedis pulses are 2+ on the right side and 2+ on the left side. Pulmonary: Effort: Pulmonary effort is normal. Breath sounds: Normal breath sounds. Abdominal: General: Abdomen is flat. Tenderness: There is abdominal tenderness. Musculoskeletal: General: Normal range of motion. Neck: Full passive range of motion without pain. Skin: General: Skin is warm. Neurological: General: No focal deficit present. Mental Status: She is alert. Cranial Nerves: No cranial nerve deficit. Sensory: No sensory deficit. Motor: No weakness. Psychiatric: Mood and Affect: Mood normal. Behavior: Behavior normal. Labs: LABS: CBC with Differential: Lab Results Component Value Date WBC 5.8 01/13/2023 RBC 4.11 01/13/2023 HGB 12.6 01/13/2023 HCT 36.6 01/13/2023 PLT 222 01/13/2023 MCV 89 01/13/2023 MCH 30.7 01/13/2023 MCHC 34.4 01/13/2023 RDW 12.4 01/13/2023 NRBC 0.0 01/13/2023 LYMPHOPCT 39.0 01/13/2023 MONOPCT 7.1 01/13/2023 EOSPCT 2.2 01/13/2023 BASOPCT 0.7 01/13/2023 MONOSABS 0.41 01/13/2023 LYMPHSABS 2.26 01/13/2023 EOSABS 0.13 01/13/2023 BASOSABS 0.04 01/13/2023 CMP: Lab Results Component Value Date NA 136 01/13/2023 K 3.5 01/13/2023 CL 103 01/13/2023 CO2 23 (L) 01/13/2023 BUN 13 01/13/2023 CREATININE 0.70 01/13/2023 GLUCOSE 89 01/13/2023 PROT 6.9 01/13/2023 CALCIUM 9.1 01/13/2023 BILITOT 0.5 01/13/2023 ALKPHOS 74 01/13/2023 AST 26 01/13/2023 ALT 15 01/13/2023 BMP: Lab Results Component Value Date NA 136 01/13/2023 K 3.5 01/13/2023 CL 103 01/13/2023 CO2 23 (L) 01/13/2023 BUN 13 01/13/2023 CREATININE 0.70 01/13/2023 CALCIUM 9.1 01/13/2023 GLUCOSE 89 01/13/2023 Magnesium:No results found for: MG Troponin: No results found for: TROPHS BNP: No results found for: BNP No results found for: PR1 , BMPR1A , INR , PROTIME , PTT , CHOL , LDLF , HDL Imaging: Duplex reviewed -CTA not transferred to our PACS Assessment/Plan Diagnoses and all orders for this visit: Median arcuate ligament syndrome (CMS/HCC) I will need to review the CT angiogram done at [facility]. She is going to undergo a celiac plexus block in the January. I instructed her on eating afterwards to see if the block has worked to relieve her nausea and pain. If this is successful, celiac neurolysis and median arcuate ligament release could potentially relieve her of her discomfort but not of her likely atrophy of her gastric remnant. She may need a feeding tube placed postpyloric at the time of laparotomy. She understands the reasoning behind these recommendations and I will await the results of the celiac plexus block and review of her CT scan. Might get UGIS. Will discuss with Dr. Deacon Valladares. documented in this encounter [facility] Work Phone: Emergency department Note 11-29-2023 Xiomara Luna DO - 01/13/2023 5:58 PM EST Note Date & Type Note Facility 01-13-2023 Emergency department Note EMERGENCY DEPARTMENT ENCOUNTER Pt Name: Abbey Phipps Birthdate 1990 Date of evaluation: 01/13/2023 ED Provider: Xiomara Luna DO CHIEF COMPLAINT Chief Complaint Patient presents with Abdominal Pain Upper Abd Abnormal Lab Low Potassium per Dr. Holley HISTORY OF PRESENT ILLNESS Abbey Phipps is a 32 y.o. who presents to the emergency department with complaints of abdominal pain and low potassium. She has a history of median arcuate ligament syndrome and is currently being worked up by vascular surgery for potential surgical repair. She is on TPN. She had blood work obtained that demonstrated a potassium of 2.8. She had an increase in her abdominal pain she was advised to come to the emergency department for further evaluation. She is scheduled to undergo a mesenteric ultrasound tomorrow. Slight nausea. No other acute complaints. Nursing Notes were reviewed. Outside historians: none REVIEW OF SYSTEMS Focused ROS performed and negative other than as listed in HPI PAST MEDICAL HISTORY Past Medical History: Diagnosis Date Hypothyroidism Median arcuate ligament syndrome (CMS/HCC) SURGICAL HISTORY Past Surgical History: Procedure Laterality Date APPENDECTOMY SECTION, CLASSIC x3 CHOLECYSTECTOMY CT ABDOMEN PELVIS ANGIOGRAM W AND/OR WO IV CONTRAST 12/14/2022 CT ABDOMEN PELVIS ANGIOGRAM W AND/OR WO IV CONTRAST 12/14/2022 ERCP W/ SPHINCTEROTOMY AND BALLOON DILATION GASTRIC BYPASS 01/2022 CURRENT MEDICATIONS Previous Medications ACETAMINOPHEN (TYLENOL) 500 MG TABLET Take 2 tablets (1,000 mg) by mouth every 6 hours if needed. ALBUTEROL 90 MCG/ACTUATION INHALER Inhale 2 puffs every 4 hours if needed. BACLOFEN (LIORESAL) 5 MG TABLET Take 1 tablet (5 mg) by mouth 2 times a day. BLOOD SUGAR DIAGNOSTIC STRIP One touch Verio strips for One Touch Verio meter; test 4 times a day BUSPIRONE (BUSPAR) 10 MG TABLET Take 1 tablet (10 mg) by mouth 2 times a day. DOCUSATE SODIUM (COLACE) 100 MG CAPSULE Take 1 capsule (100 mg) by mouth 3 times a day as needed. EFFER-K 25 MEQ EFFERVESCENT TABLET Take 1 tablet (25 mEq) by mouth once daily. ESCITALOPRAM (LEXAPRO) 20 MG TABLET Take 1 tablet (20 mg) by mouth once daily. ESTRADIOL (ESTRACE) 1 MG TABLET Take 1 tablet (1 mg) by mouth once daily. FAMOTIDINE (PEPCID) 40 MG TABLET Take 1 tablet (40 mg) by mouth once daily. FERROUS SULFATE 325 (65 FE) MG TABLET Take 1 tablet (325 mg) by mouth once daily with a meal. FLUTICASONE PROPION-SALMETEROL (ADVAIR DISKUS) 100-50 MCG/DOSE DISKUS INHALER Inhale 1 puff every 12 hours. HYDROXYZINE HCL (ATARAX) 25 MG TABLET Take 1 tablet (25 mg) by mouth 3 times a day as needed for anxiety. LEVOTHYROXINE (SYNTHROID, LEVOXYL) 100 MCG TABLET Take 1 tablet (100 mcg) by mouth once daily. LINACLOTIDE (LINZESS) 145 MCG CAPSULE Take 1 capsule (145 mcg) by mouth. LIOTHYRONINE (CYTOMEL) 5 MCG TABLET Take 1 tablet (5 mcg) by mouth once daily. MAGNESIUM, GLUCONATE, (MAGONATE) 27 MG MAGNESIUM (500 MG) TABLET Take 500 mg by mouth once daily. MECLIZINE (ANTIVERT) 12.5 MG TABLET Take 1 tablet (12.5 mg) by mouth 3 times a day as needed for dizziness. METOCLOPRAMIDE (REGLAN) 5 MG TABLET Take 1 tablet (5 mg) by mouth. MIRTAZAPINE (REMERON) 15 MG TABLET Take 1 tablet (15 mg) by mouth once daily at bedtime. ONDANSETRON ODT (ZOFRAN-ODT) 4 MG DISINTEGRATING TABLET Take 1 tablet (4 mg) by mouth every 8 hours if needed for nausea. PANTOPRAZOLE (PROTONIX) 40 MG EC TABLET Take 1 tablet (40 mg) by mouth once daily in the morning. Take before meals. POLYETHYLENE GLYCOL (GLYCOLAX, MIRALAX) 17 GRAM/DOSE POWDER Take 17 g by mouth once daily as needed. TOPIRAMATE (TOPAMAX) 100 MG TABLET Take 0.5 tablets (50 mg) by mouth 2 times a day. ALLERGIES Codeine and Nsaids (non-steroidal anti-inflammatory drug) FAMILY HISTORY No family history on file. SOCIAL HISTORY Social History Socioeconomic History Marital status: Single Spouse name: None Number of children: None Years of education: None Highest education level: None Occupational History None Tobacco Use Smoking status: Never Smokeless tobacco: Never Substance and Sexual Activity Alcohol use: Never Drug use: Never Sexual activity: None Other Topics Concern None Social History Narrative None Social Determinants of Health Financial Resource Strain: Not on file Food Insecurity: Not on file Transportation Needs: Not on file Physical Activity: Not on file Stress: Not on file Social Connections: Not on file Intimate Partner Violence: Not on file Housing Stability: Not on file PHYSICAL EXAM ED Triage Vitals [01/13/231840] Temp Heart Rate Resp BP 36.3 C (97.3 F) 79 16 111/81 SpO2 Temp Source Heart Rate Source Patient Position 100 % Temporal Monitor Sitting BP Location FiO2 (%) Left arm -- General: Appears well, no acute distress, alert Head: Head atraumatic; normocephalic Eyes: normal inspection; no icterus ENT: mucosa moist without lesion Neck: Normal inspection, no meningeal signs Resp: Normal breath sounds, no wheeze or crackles; No respiratory distress Chest Wall: no tenderness or deformity Heart: Heart rate and rhythm regular; No Murmurs Abdomen: Soft, mild diffuse abdominal tenderness worse in the epigastric area; No distention, guarding, rigidity, or rebound MSK: Normal appearance; Moves all extremities; No Pedal edema Neuro: Alert; no focal deficits, moves all extremities Psych: Mood and Affect normal Skin: Color appropriate; warm; Dry DIAGNOSTIC RESULTS Lab and radiology results are independently interpreted unless noted below. LABS: Abnormal Labs Reviewed COMPREHENSIVE METABOLIC PANEL - Abnormal; Notable for the following components: Result Value Bicarbonate 23 (*) All other components within normal limits All other labs were within normal range or not returned as of this dictation. EKG: Personally interpreted by Xiomara Lnua DO 184: Normal sinus rhythm with ventricular rate 75 normal axis and intervals no acute ischemic changes EMERGENCY DEPARTMENT COURSE/MDM: Patient was emergency department with complaint of abdominal pain. She has a diagnosis of median arcuate ligament syndrome and is s still undergoing outpatient work-up for definitive care. Lab work was obtained prior to initial evaluation which demonstrated a normal potassium and no other specific acute abnormalities. Vascular surgery was consulted via epic chat and recommended symptomatic relief with antiemetics NSAIDs and fluids. Patient is agreeable with this plan of care. On reevaluation patient states that she is feeling better. Once fluids are completed she is comfortable with plan of discharge. She will follow-up tomorrow for her ultrasound as previously scheduled and return should symptoms change or worsen in any way. She verbalized understanding and agrees with plan of discharge. Discharged in improved condition. Diagnoses as of 01/13/232113 Generalized abdominal pain Median arcuate ligament syndrome (CMS/HCC) Meds Administered: Medications sodium chloride 0.9 % bolus 1,000 mL (1,000 mL intravenous New Bag 01/13/232034) ondansetron (Zofran) injection 4 mg (4 mg intravenous Given 01/13/232034) fentaNYL PF (Sublimaze) injection 50 mcg (50 mcg intravenous Given 01/13/232034) PROCEDURES: Unless otherwise noted below, none Procedures FINAL IMPRESSION 1. Generalized abdominal pain 2. Median arcuate ligament syndrome (CMS/HCC) DISPOSITION Discharge 01/13/2023 09:09:21 PM DISCHARGE PATIENT REFERRED TO: [place] [id number] [facility] [address] In 1 day for previously schedule US DISCHARGE MEDICATIONS: New Prescriptions No medications on file The patient is discharged back to their place of residence. Discharge diagnosis, instructions and plan were discussed and understood. At the time of discharge the patient was comfortable and was in no apparent distress. Patient is aware of diagnostic uncertainty and was notified though testing is negative here, there is a very small chance that pathology may be missed. The patient understands these risks and the patient /family understood to return immediately to the emergency department if the symptoms worsen or if they have any additional concerns. (Comment: Please note this report has been produced using speech recognition software and may contain errors related to that system including errors in grammar, punctuation, and spelling, as well as words and phrases that may be inappropriate. If there are any questions or concerns please feel free to contact the dictating provider for clarification.) Xiomara Luna DO (electronically signed) Emergency Medicine Physician Medical Decision Making Xiomara Luna DO 01/13/232116 documented in this encounter [facility] Work Phone: Physician Emergency department Note 01-13-2023 Xiomara Luna DO - 01/13/2023 5:58 PM EST Note Date & Type Note Facility 01-13-2023 Physician Emergency department Note EMERGENCY DEPARTMENT ENCOUNTER Pt Name: Abbey Phipps Birthdate 1990 Date of evaluation: 01/13/2023 ED Provider: Xiomara Luna DO CHIEF COMPLAINT Chief Complaint Patient presents with Abdominal Pain Upper Abd Abnormal Lab Low Potassium per Dr. Holley HISTORY OF PRESENT ILLNESS Abbey Phipps is a 32 y.o. who presents to the emergency department with complaints of abdominal pain and low potassium. She has a history of median arcuate ligament syndrome and is currently being worked up by vascular surgery for potential surgical repair. She is on TPN. She had blood work obtained that demonstrated a potassium of 2.8. She had an increase in her abdominal pain she was advised to come to the emergency department for further evaluation. She is scheduled to undergo a mesenteric ultrasound tomorrow. Slight nausea. No other acute complaints. Nursing Notes were reviewed. Outside historians: none REVIEW OF SYSTEMS Focused ROS performed and negative other than as listed in HPI PAST MEDICAL HISTORY Past Medical History: Diagnosis Date Hypothyroidism Median arcuate ligament syndrome (CMS/HCC) SURGICAL HISTORY Past Surgical History: Procedure Laterality Date APPENDECTOMY SECTION, CLASSIC x3 CHOLECYSTECTOMY CT ABDOMEN PELVIS ANGIOGRAM W AND/OR WO IV CONTRAST 12/14/2022 CT ABDOMEN PELVIS ANGIOGRAM W AND/OR WO IV CONTRAST 12/14/2022 ERCP W/ SPHINCTEROTOMY AND BALLOON DILATION GASTRIC BYPASS 01/2022 CURRENT MEDICATIONS Previous Medications ACETAMINOPHEN (TYLENOL) 500 MG TABLET Take 2 tablets (1,000 mg) by mouth every 6 hours if needed. ALBUTEROL 90 MCG/ACTUATION INHALER Inhale 2 puffs every 4 hours if needed. BACLOFEN (LIORESAL) 5 MG TABLET Take 1 tablet (5 mg) by mouth 2 times a day. BLOOD SUGAR DIAGNOSTIC STRIP One touch Verio strips for One Touch Verio meter; test 4 times a day BUSPIRONE (BUSPAR) 10 MG TABLET Take 1 tablet (10 mg) by mouth 2 times a day. DOCUSATE SODIUM (COLACE) 100 MG CAPSULE Take 1 capsule (100 mg) by mouth 3 times a day as needed. EFFER-K 25 MEQ EFFERVESCENT TABLET Take 1 tablet (25 mEq) by mouth once daily. ESCITALOPRAM (LEXAPRO) 20 MG TABLET Take 1 tablet (20 mg) by mouth once daily. ESTRADIOL (ESTRACE) 1 MG TABLET Take 1 tablet (1 mg) by mouth once daily. FAMOTIDINE (PEPCID) 40 MG TABLET Take 1 tablet (40 mg) by mouth once daily. FERROUS SULFATE 325 (65 FE) MG TABLET Take 1 tablet (325 mg) by mouth once daily with a meal. FLUTICASONE PROPION-SALMETEROL (ADVAIR DISKUS) 100-50 MCG/DOSE DISKUS INHALER Inhale 1 puff every 12 hours. HYDROXYZINE HCL (ATARAX) 25 MG TABLET Take 1 tablet (25 mg) by mouth 3 times a day as needed for anxiety. LEVOTHYROXINE (SYNTHROID, LEVOXYL) 100 MCG TABLET Take 1 tablet (100 mcg) by mouth once daily. LINACLOTIDE (LINZESS) 145 MCG CAPSULE Take 1 capsule (145 mcg) by mouth. LIOTHYRONINE (CYTOMEL) 5 MCG TABLET Take 1 tablet (5 mcg) by mouth once daily. MAGNESIUM, GLUCONATE, (MAGONATE) 27 MG MAGNESIUM (500 MG) TABLET Take 500 mg by mouth once daily. MECLIZINE (ANTIVERT) 12.5 MG TABLET Take 1 tablet (12.5 mg) by mouth 3 times a day as needed for dizziness. METOCLOPRAMIDE (REGLAN) 5 MG TABLET Take 1 tablet (5 mg) by mouth. MIRTAZAPINE (REMERON) 15 MG TABLET Take 1 tablet (15 mg) by mouth once daily at bedtime. ONDANSETRON ODT (ZOFRAN-ODT) 4 MG DISINTEGRATING TABLET Take 1 tablet (4 mg) by mouth every 8 hours if needed for nausea. PANTOPRAZOLE (PROTONIX) 40 MG EC TABLET Take 1 tablet (40 mg) by mouth once daily in the morning. Take before meals. POLYETHYLENE GLYCOL (GLYCOLAX, MIRALAX) 17 GRAM/DOSE POWDER Take 17 g by mouth once daily as needed. TOPIRAMATE (TOPAMAX) 100 MG TABLET Take 0.5 tablets (50 mg) by mouth 2 times a day. ALLERGIES Codeine and Nsaids (non-steroidal anti-inflammatory drug) FAMILY HISTORY No family history on file. SOCIAL HISTORY Social History Socioeconomic History Marital status: Single Spouse name: None Number of children: None Years of education: None Highest education level: None Occupational History None Tobacco Use Smoking status: Never Smokeless tobacco: Never Substance and Sexual Activity Alcohol use: Never Drug use: Never Sexual activity: None Other Topics Concern None Social History Narrative None Social Determinants of Health Financial Resource Strain: Not on file Food Insecurity: Not on file Transportation Needs: Not on file Physical Activity: Not on file Stress: Not on file Social Connections: Not on file Intimate Partner Violence: Not on file Housing Stability: Not on file PHYSICAL EXAM ED Triage Vitals [01/13/23 184] Temp Heart Rate Resp BP 36.3 C (97.3 F) 79 16 111/81 SpO2 Temp Source Heart Rate Source Patient Position 100 % Temporal Monitor Sitting BP Location FiO2 (%) Left arm -- General: Appears well, no acute distress, alert Head: Head atraumatic; normocephalic Eyes: normal inspection; no icterus ENT: mucosa moist without lesion Neck: Normal inspection, no meningeal signs Resp: Normal breath sounds, no wheeze or crackles; No respiratory distress Chest Wall: no tenderness or deformity Heart: Heart rate and rhythm regular; No Murmurs Abdomen: Soft, mild diffuse abdominal tenderness worse in the epigastric area; No distention, guarding, rigidity, or rebound MSK: Normal appearance; Moves all extremities; No Pedal edema Neuro: Alert; no focal deficits, moves all extremities Psych: Mood and Affect normal Skin: Color appropriate; warm; Dry DIAGNOSTIC RESULTS Lab and radiology results are independently interpreted unless noted below. LABS: Abnormal Labs Reviewed COMPREHENSIVE METABOLIC PANEL - Abnormal; Notable for the following components: Result Value Bicarbonate 23 (*) All other components within normal limits All other labs were within normal range or not returned as of this dictation. EKG: Personally interpreted by Xiomara Luna DO 184: Normal sinus rhythm with ventricular rate 75 normal axis and intervals no acute ischemic changes EMERGENCY DEPARTMENT COURSE/MDM: Patient was emergency department with complaint of abdominal pain. She has a diagnosis of median arcuate ligament syndrome and is s still undergoing outpatient work-up for definitive care. Lab work was obtained prior to initial evaluation which demonstrated a normal potassium and no other specific acute abnormalities. Vascular surgery was consulted via epic chat and recommended symptomatic relief with antiemetics NSAIDs and fluids. Patient is agreeable with this plan of care. On reevaluation patient states that she is feeling better. Once fluids are completed she is comfortable with plan of discharge. She will follow-up tomorrow for her ultrasound as previously scheduled and return should symptoms change or worsen in any way. She verbalized understanding and agrees with plan of discharge. Discharged in improved condition. Diagnoses as of 01/13/232113 Generalized abdominal pain Median arcuate ligament syndrome (CMS/HCC) Meds Administered: Medications sodium chloride 0.9 % bolus 1,000 mL (1,000 mL intravenous New Bag 01/13/232034) ondansetron (Zofran) injection 4 mg (4 mg intravenous Given 01/13/232034) fentaNYL PF (Sublimaze) injection 50 mcg (50 mcg intravenous Given 01/13/232034) PROCEDURES: Unless otherwise noted below, none Procedures FINAL IMPRESSION 1. Generalized abdominal pain 2. Median arcuate ligament syndrome (CMS/HCC) DISPOSITION Discharge 01/13/2023 09:09:21 PM DISCHARGE PATIENT REFERRED TO: [place] [id number] [facility] [address] In 1 day for previously schedule US DISCHARGE MEDICATIONS: New Prescriptions No medications on file The patient is discharged back to their place of residence. Discharge diagnosis, instructions and plan were discussed and understood. At the time of discharge the patient was comfortable and was in no apparent distress. Patient is aware of diagnostic uncertainty and was notified though testing is negative here, there is a very small chance that pathology may be missed. The patient understands these risks and the patient /family understood to return immediately to the emergency department if the symptoms worsen or if they have any additional concerns. (Comment: Please note this report has been produced using speech recognition software and may contain errors related to that system including errors in grammar, punctuation, and spelling, as well as words and phrases that may be inappropriate. If there are any questions or concerns please feel free to contact the dictating provider for clarification.) Xiomara Luna DO (electronically signed) Emergency Medicine Physician Medical Decision Making Xiomara Luna DO 01/13/232116 [facility] Work Phone: History of Present illness Narrative 12-21-2022 Sherry Holley MD - 12/21/2022 10:00 AM EST Note Date & Type Note Facility 12-21-2022 History of Present illness Narrative Vascular Surgery Consultation, History, Physical Abbey Phipps is a 32 y.o. year old female patient with [facility] referred for consultation. History: Patient is a 32-year-old woman who about 10 years ago began having chronic abdominal pain. 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 She underwent gastric bypass surgery by Dr. Deacon Valladares, which required revision. She had a period of good symptoms and was able to eat but now has been unable to eat because of severe epigastric abdominal pain triggered by eating food. No vomiting but severe nausea as well. The pain is in the epigastrium going to the left upper quadrant. 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 She has never had a celiac plexus block. No past medical history on file. Past Surgical History: Procedure Laterality Date CT ABDOMEN PELVIS ANGIOGRAM W AND/OR WO IV CONTRAST 12/14/2022 CT ABDOMEN PELVIS ANGIOGRAM W AND/OR WO IV CONTRAST 12/14/2022 Active Ambulatory Problems Diagnosis Date Noted No Active Ambulatory Problems Resolved Ambulatory Problems Diagnosis Date Noted No Resolved Ambulatory Problems No Additional Past Medical History Review of Systems Constitutional: Negative. HENT: Negative. Eyes: Negative. Respiratory: Negative. Cardiovascular: Negative. Gastrointestinal: Negative. Endocrine: Negative. Genitourinary: Negative. Musculoskeletal: Negative. Skin: Negative. Allergic/Immunologic: Negative. Neurological: Negative. Hematological: Negative. Psychiatric/Behavioral: Negative. ROS Allergies Allergen Reactions Codeine Nausea/vomiting Nsaids (Non-Steroidal Anti-Inflammatory Drug) Nausea/vomiting Vitals: There were no vitals taken for this visit. Physical Exam: Vascular Physical Exam Constitutional: Appearance: Normal appearance. HENT: Head: Normocephalic. Mouth/Throat: Mouth: Mucous membranes are moist. Eyes: Pupils: Pupils are equal, round, and reactive to light. Cardiovascular: Rate and Rhythm: Normal rate. Abdominal: General: Abdomen is flat. Palpations: Abdomen is soft. Musculoskeletal: General: Normal range of motion. Skin: General: Skin is warm. Neurological: General: No focal deficit present. Mental Status: She is alert. Psychiatric: Mood and Affect: Mood normal. Labs: LABS: CBC with Differential: No results found for: WBC , RBC , HGB , HCT , PLT , MCV , MCH , MCHC , RDW , NRBC , SEGSPCT , BANDSPCT , BLASTSPCT , METASPCT , LYMPHOPCT , PROMYELOPCT , MONOPCT , MYELOPCT , EOSPCT , BASOPCT , MONOSABS , LYMPHSABS , EOSABS , BASOSABS , DIFFTYPE CMP: No results found for: NA , K , CL , CO2 , BUN , CREATININE , AGRATIO , GLUCOSE , GLU , PROT , CALCIUM , BILITOT , ALKPHOS , AST , ALT BMP: No results found for: NA , K , CL , CO2 , BUN , CREATININE , CALCIUM , GLUCOSE , GLU Magnesium:No results found for: MG Troponin: No results found for: TROPHS BNP: No results found for: BNP No results found for: PR1 , BMPR1A , INR , PROTIME , PTT , CHOL , LDLF , HDL Imaging: No available on PACS Assessment/Plan Diagnoses and all orders for this visit: Median arcuate ligament syndrome (CMS/HCC) - Vascular US mesenteric artery duplex complete; Future We will repeat her mesenteric duplex here in my lab. I will arrange for a celiac plexus block over the clinic. I will contact Dr. Garcia to coordinate her care. documented in this encounter [facility] Work Phone: Evaluation note Note Date & Type Note Facility Evaluation note Diagnosis Median arcuate ligament syndrome (CMS/HCC)- Primary Celiac artery compression syndrome documented in this encounter [facility] Work Phone: Evaluation note Note Date & Type Note Facility Evaluation note Diagnosis Generalized abdominal pain- Primary Abdominal pain, generalized Median arcuate ligament syndrome (CMS/HCC) Celiac artery compression syndrome documented in this encounter [facility] Work Phone: Evaluation note Note Date & Type Note Facility Evaluation note Diagnosis Median arcuate ligament syndrome (CMS/HCC)- Primary Celiac artery compression syndrome documented in this encounter [facility] Work Phone: Reason for Referral Specialty Diagnoses / Procedures Referred By Contac t Referred To Contact Cardiology Diagnoses Median arcuate ligament syndrome (CMS/HCC) Procedures Vascular [place] [id number] [place] [address] Referral ID Status Reason Start Date Expiration Date Visits Requested Visits Authorized [id number] Pending Review Perform Procedure 12/21/2022 12/21/2023 1 1 Summary Purpose Family History No Family History Records Found Advance Directives No Advanced Directives Records Found Additional Source Comments Reason for Visit (unrecogniz ed section and content) Reason Comments refferal Mals consultation Reason Comments Abdominal Pain Upper Abd Abnormal Lab Low Potassium per Dr Renetta Holley Reason Comments Follow-up Worsening pain/nause a poor food intake Scheduled Active and Recently Administ ered Medications (unrecognized section and content) Medication Order 01/11/2023 01/12/2023 01/13/2023 fentaNYL PF (Sublimaze) injection 50 mcg (COMPLETED) 50 mcg, intravenous, Once, On Wed01/13/23 at 2019, For 1 dose 2034 (Given - Provid er: Oksana Hansen RN) ondansetron (Zofran) injection 4 mg (COMPLETED) 4 mg, intravenous, Once, On Wed01/13/23 at 2019, For 1 dose, When administering via IV Push, administer over 3-5 minutes. 2034 (Given - Provid er: Oksana Hansen RN) sodium chloride 0.9 % bolus 1,000 mL (COMPLETED) 1,000 mL, intravenous, at 1,000 mL/hr, Administer over 1 Hours, Once, On Wed01/13/23 at 2019, For 1 dose 2034 (New Bag - Prov ider: Oksana Hansen RN)2134 (Stopped - Provider: Carla Alejo LPN) Care Teams (unrecognized sec tion and content) Dag Coater Relationship Specialty Start Date End Date Generic Provider, No Assigned PcpMD [address] [place] [address] PCP - General Family Medicine 01/02/23 Dag Coater Relationship Specialty Start Date End Date Generic Provider, No Assigned MD Gabe [address] [place] [address] PCP - General Family Medicine 01/02/23 Dag Coater Relationship Specialty Start Date End Date Generic Provider, No Assigned MD Gabe [address] [place] [address] PCP - General Family Medicine 01/02/23 Dag Coater Relationship Specialty Start Date End Date Generic Provider, No Assigned MD Gabe [address] [place] [address] PCP - General Family Medicine 01/02/23 INFORMATION SOURCE (unrecogn ized section and content) DATE CREATED AUTHOR 01/17/2023 [facility] FOR RECORDS PERTAINING TO PATIENTS WHO ARE [...] BE BASED ON THE PRIMARY CLINICAL RECORDS. [facility] [employer] [facility]. provides no warranty or guarantee of the accuracy or completeness of information in this document.
[2023-06-14 13:58] LABS: Basophils Percent Auto 0.8 % (0.2-2.0); Eosinophils Absolute Auto 0.1 10^3/uL (0.0-0.7); Eosinophils Percent Auto 2.3 % (0.9-7.0); Hematocrit 37.2 % (36.0-48.0); Hemoglobin 12.4 g/dL (12.0-16.0); Immature Granulocytes Abs Auto 0.01 10^3/uL (0.00-0.03); Immature Granulocytes Pct Auto 0.2 % (0.0-0.5); Lymphocytes Absolute Auto 1.8 10^3/uL (1.2-3.8); Lymphocytes Percent Auto 37.5 % (20.5-60.0); Mean Corpuscular HGB Conc 33.3 g/dL (29.9-35.2); Mean Corpuscular Hemoglobin 30.5 pg (26.7-34.0); Mean Corpuscular Volume 91.6 fL (81.0-99.0); Mean Platelet Volume 11.6 fL (9.5-13.5); Monocytes Absolute Auto 0.3 10^3/uL (0.3-0.8); Monocytes Percent Auto 6.7 % (1.7-12.0); Neutrophils Absolute Auto 2.5 10^3/uL (1.4-6.5); Neutrophils Percent Auto 52.5 % (43.0-75.0); Platelet Count 239 10^3/uL (150-450); Red Blood Count 4.06 10^6/uL (4.20-5.40); Red Cell Distribution Width 13.4 % (11.0-15.0); White Blood Count 4.8 10^3/uL (4.0-11.0)
[2023-06-14 14:00] LABS: Bilirubin Urine NEGATIVE (NEGATIVE); Blood Urine NEGATIVE (NEGATIVE); Clarity Urine CLEAR (CLEAR); Color Urine LT. YELLOW (YELLOW); Glucose Urine UA NEGATIVE (NEGATIVE); Ketones Urine NEGATIVE (NEGATIVE); Leukocyte Esterase Urine NEGATIVE (NEGATIVE); Nitrite Urine NEGATIVE (NEGATIVE); Protein Urine NEGATIVE (NEG/TRACE); Specific Gravity Urine <=1.005 (1.005-1.025); Urobilinogen Urine 0.2 EU/dL (0.2-1.0); pH Urine 7.5 (5.0-9.0)
[2023-06-14 14:01] LABS: Urine Microscopic Indicated NO
[2023-06-14] MEDS: LORAZEPAM 2 MG/ML VIAL 0.5 MG IV (14:09)
[2023-06-14 14:13] LABS: Alanine Aminotransferase 23 U/L (14-59); Albumin Globulin Ratio 1.1; Alkaline Phosphatase 67 U/L (46-116); Anion Gap 14.1; Aspartate Amino Transferase 30 U/L (15-37); BUN Creatinine Ratio 15.7; Bilirubin Total 0.5 mg/dL (0.2-1.0); Calcium 9.3 mg/dL (8.5-10.1); Carbon Dioxide 25.3 mmol/L (21.0-32.0); Chloride 104 mmol/L (98-107); Estimated GFR (African America >60 (>=60); Estimated GFR (Non-African Ame >60 (>=60); Globulin 3.8 g/dL; Glucose 89 mg/dL (74-106); Potassium 3.4 mmol/L (3.5-5.1); Sodium 140 mmol/L (136-145); Total Protein 7.8 g/dL (6.4-8.2)
[2023-06-14 14:18] LABS: Lactate/Lactic Acid 0.9 mmol/L (0.4-2.0)
[2023-06-14] MEDS: HYOSCYAMINE SULFATE 0.125 MG TAB.SUBL SL (14:59)
[2023-06-14] MEDS: ORPHENADRINE 60 MG/ 2 ML VIAL IV (14:59)
--- NOTE | 2023-06-14 18:25 | P.HP_ITS ---
HPI H&P: HPI History of Present Illness Chief complaint: Service Officer Issue, Nausea, Intractable Abd Pain Narrative: Patient was seen and evaluated in the emergency room for increasing abdominal pain, nausea vomiting. Patient has extensive history. Status post gastric bypass surgery now with complications. To the point that she was unable to keep her weight up, so a PEG tube was placed has had issues for that period of time as well. Increasing abdominal pain again nausea vomiting is why she presented today. Found to have some dehydration. She does sound like she is having orthostatic symptoms. When I saw patient up on the medical surgical floor, resting with a little bit of painful discomfort. Medicated in ER. Opioid HPI Opioid Management Most Recent Opioid Data: Last Pain Scale 9 06/14/23 13:58 Last MAR Pain Assessment 06/14/23 13:43 Last ORT Total Score 4 06/14/23 17:01 Last ORT Risk Category Moderate Risk 06/14/23 17:01 Review of Systems ROS Status of ROS 10 or more systems reviewed and unremark able except as noted in history and below PFSH PFSH Medical History (Updated 06/14/23 @ 18:32 by Thomas Alas MD) Depression ?F32.A - Depression, unspecified (ICD-10) Asthma ?J45.909 - Unspecified asthma, uncomplicated (ICD-10) Dyspareunia Pelvic pain ?R10.2 - Pelvic and perineal pain (ICD-10) Ovarian cyst ?N83.209 - Unspecified ovarian cyst, unspecified side (ICD-10) PONV (postoperative nausea and vomiting) ?R11.2 - Nausea with vomiting, unspecified (ICD-10) ?Z98.890 - Other specified postprocedural states (ICD-10) PCOS (polycystic ovarian syndrome) ?E28.2 - Polycystic ovarian syndrome (ICD-10) Hypothyroidism (acquired) ?E03.9 - Hypothyroidism, unspecified (ICD-10) Anxiety ?F41.9 - Anxiety disorder, unspecified (ICD-10) GERD (gastroesophageal reflux disease) ?K21.9 - Gastro-esophageal reflux disease without esophagitis (ICD-10) Sleep apnea ?G47.30 - Sleep apnea, unspecified (ICD-10) Anemia ?D64.9 - Anemia, unspecified (ICD-10) Fibromyalgia ?M79.7 - Fibromyalgia (ICD-10) Syncope (07/07/13) ?R55 - Syncope and collapse (ICD-10) Shingles ?B02.9 - Zoster without complications (ICD-10) Headache ?R51.9 - Headache, unspecified (ICD-10) Migraine ?G43.909 - Migraine, unspecified, not intractable, without status migrainosus (ICD-10) Mechanical ileus (01/31/20) ?K56.609 - Unspecified intestinal obstruction, unspecified as to partial versus complete obstruction (ICD-10) COVID-19 (~02/2020) ?U07.1 - COVID-19 (ICD-10) Kidney stones ?N20.0 - Calculus of kidney (ICD-10) Surgical History (Updated 06/14/23 @ 16:55 by Marsha Du) S/P percutaneous endoscopic gastrostomy (PEG) tube placement ?Z93.1 - Gastrostomy status (ICD-10) 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 - Celiac artery compression syndrome (ICD-10) H/O shoulder surgery (2022) ?Z98.890 - Other specified postprocedural states (ICD-10) History of hip surgery ?Z98.890 - Other specified postprocedural states (ICD-10) S/P right knee arthroscopy ?Z98.890 - Other specified postprocedural states (ICD-10) S/P left knee arthroscopy ?Z98.890 - Other specified postprocedural states (ICD-10) Hx of tonsillectomy ?Z90.89 - Acquired absence of other organs (ICD-10) History of thoracic surgery (~2021) ?Z98.890 - Other specified postprocedural states (ICD-10) History of esophagogastroduodenoscopy (EGD) (10/04/13) ?Z98.890 - Other specified postprocedural states (ICD-10) History of cholecystectomy (10/06/13) ?Z90.49 - Acquired absence of other specified parts of digestive tract (ICD- 10) Delivery by section (~2016) Delivery by section (01/17/18) H/O colonoscopy (~2018) ?Z98.890 - Other specified postprocedural states (ICD-10) S/P right knee arthroscopy (06/06/19) ?Z98.890 - Other specified postprocedural states (ICD-10) Delivery by section (06/19/19) History of appendectomy (09/25/19) ?Z90.49 - Acquired absence of other specified parts of digestive tract (ICD- 10) H/O laparoscopy (11/10/19) ?Z98.890 - Other specified postprocedural states (ICD-10) History of liver biopsy (~04/2020) ?Z98.890 - Other specified postprocedural states (ICD-10) H/O laparoscopy (07/18/20) ?Z98.890 - Other specified postprocedural states (ICD-10) H/O arthroscopy of right knee (08/07/20) ?Z98.890 - Other specified postprocedural states (ICD-10) S/P laparoscopic sleeve gastrectomy (09/03/20) ?Z98.84 - Bariatric surgery status (ICD-10) H/O: hysterectomy (11/12/20) ?Z90.710 - Acquired absence of both cervix and uterus (ICD-10) History of hernia repair (03/20/21) ?Z98.890 - Other specified postprocedural states (ICD-10) ?Z87.19 - Personal history of other diseases of the digestive system (ICD-10) Family History (Updated 06/14/23 @ 16:56 by Marsha Du) Other Family history of cancer Family history of diabetes mellitus Family history of hypertension Family history of myocardial infarction PONV (postoperative nausea and vomiting) Social History (Updated 06/14/23 @ 16:57 by Marsha Du) Within the past year, how often did you have a drink containing alcohol: never Score interpretation: A score less than 3 is consistent with normal alcohol consumption. Smoking status: Never smoker Non-prescribed substance use: denies use Highest level of school completed/degree received: Master's degree Are you now , , , , never or living with a partner: In a typical week, how many times do you talk on the telephone with family, friends, or neighbors: 3 or more times per week How often do you get together with friends or relatives: twice per week How often do you attend mormon or yazdanism services: 4 or more times per year Do you belong to any clubs or organizations such as mormon groups unions, fraternal or athletic groups, or school groups: no Total score: 3 Score interpretation: A score of greater than or equal to 2 indicates the lowest level of social isolation. Little interest or pleasure in doing things: not at all Feeling down, depressed, or hopeless: several days Feel stressed/tense/nervous/anxious/difficulty sleeping: to some extent Do you think of yourself as: straight/heterosexual Gender Identity: female Meds Home Medications and Allergies Home Medications ?Medication ?Instructions ?Recorded ?Confirmed ?Type escitalopram oxalate 10 mg tablet 20 mg PO QDAY 09/17/22 06/14/23 History hydroxyzine HCl 25 mg tablet 25 mg PO BID PRN anxiety 09/17/22 06/14/23 History levothyroxine 125 mcg tablet 125 mcg PO QDAY 09/17/22 06/14/23 History liothyronine 5 mcg tablet 5 mcg PO QDAY 09/17/22 06/14/23 History topiramate 100 mg tablet 100 mg PO BID 09/17/22 06/14/23 History mirtazapine 15 mg tablet (Remeron) 30 mg PO BEDTIME 11/16/22 06/14/23 History buspirone 10 mg tablet 10 mg PO TID 06/14/23 06/14/23 History linaclotide 290 mcg capsule 290 mcg PO DAILY 06/14/23 06/14/23 History (Linzess) methocarbamol 750 mg tablet 750 mg PO TID 06/14/23 06/14/23 History metoclopramide HCl 10 mg tablet 10 mg PO AC 06/14/23 06/14/23 History Allergies Allergy/AdvReac Type Severity Reaction Status Date / Time adhesive Allergy Rash Verified 06/14/23 13:20 codeine Allergy Vomiting Verified 06/14/23 13:20 NSAIDS (Non-Steroidal Allergy intolerance Verified 06/14/23 13:20 Anti-Inflamma Exam Constitutional Vital Signs, click to edit/add: Last Vital Signs Temp 97.6 F 06/14/23 17:01 Pulse 82 06/14/23 17:01 Resp 18 06/14/23 17:01 BP 114/76 06/14/23 17:01 Pulse Ox 100 06/14/23 17:01 O2 Del Method Room Air 06/14/23 17:01 Documenting provider has reviewed patient's vital signs: yes Common normals: apparent distress (Mild painful distress) Exam limitations: no altered mental status and no behavioral limitations General appearance: not comfortable HENMT Common normals: oral mucous membranes not moist (Somewhat dry mucous membranes) Chest Common normals: inspection of chest normal and palpation of chest normal Respiratory Common normals: normal respiratory effort and no retractions Cardio Common normals: regular rate, regular rhythm, S1 normal heart sound and no murmurs GI Common normals: negative for Normal to inspection, nondistended, normoactive bowel sounds present (Feeding tube left upper abdomen.) and tender Palpation: tender (Tenderness more left-sided. She does have rebound tenderness. ) and rebound tenderness present (Palpation of right side causing left-sided abdominal pain) Results Labs Labs: Short CBC 06/14/23 Range/Units 13:39 WBC 4.8 (4.0-11.0) 10^3/uL Hgb 12.4 (12.0-16.0) g/dL Hct 37.2 (36.0-48.0) % Plt Count 239 (150-450) 10^3/uL BMP 06/14/23 13:39 Sodium 140 Potassium 3.4 L Chloride 104 Carbon Dioxide 25.3 BUN 13.0 Creatinine 0.83 Glucose 89 Calcium 9.3 Liver Function 06/14/23 Range/Units 13:39 Total Bilirubin 0.5 (0.2-1.0) mg/dL AST 30 (15-37) U/L ALT 23 (14-59) U/L Alkaline Phosphatase 67 (46-116) U/L Albumin 4.0 (3.4-5.0) g/dL Urine 06/14/23 Range/Units 13:43 Urine Color Lt. yellow (YELLOW) Urine Clarity Clear (CLEAR) Urine pH 7.5 (5.0-9.0) Ur Specific [place] <=1.005 A (1.005-1.025) Urine Protein Negative (NEG/TRACE) mg/dL Urine Glucose (UA) Negative (NEGATIVE) mg/dL Assessment and Plan Assessment and Plan (1) Intractable nausea and vomiting: (2) Intractable abdominal pain: (3) Acute abdomen: Plan Patient was a very complicated past history of abdominal surgeries. Now with PEG tube now with increasing nausea vomiting. On exam she does have an acute abdomen with positive rebound tenderness and positive left abdominal pain with palpation of right side. Will start IV antibiotics, check blood cultures, serial labs Dehydration with patient describing orthostatic hypotension with near syncope upon standing. Will check orthostatic vitals every shift here, continue with IV hydration. Severe protein calorie malnutrition requiring tube feeds. Will continue with low-dose tube feeds for 18 hours of the day. Giving her some bowel rest in between times. No evidence for leak on CT scan. Will see if she tolerates th kathleen with IV Reglan and oral Levsin. Generalized anxiety disorder-will need to continue with her current medications of stopping them elicits significant side effects Hypothyroidism-check TSH L Back pain, she uses methocarbamol for that-will do IV Norflex Admission status: Patient is a multiple tries of treating this as an outpatient without success. Now with possible acute abdomen and with abdominal rebound tenderness in abdominal pain and opposite palpation. Starting IV antibiotics. Continue IV fluids. Medically necessary treatment will span 2 midnights.
[2023-06-14] MEDS: HYDROMORPHONE HCL 0.5 MG/0.5 ML SYRINGE IV ×2 (18:51→23:48)
--- NOTE | 2023-06-14 20:23 | PC.NURSE ---
Access here for placement of PICC Line
[2023-06-14] MEDS: BUSPIRONE HCL 10 MG TABLET PO (21:21)
[2023-06-14] MEDS: METOCLOPRAMIDE HCL 10 MG/2 ML VIAL IVP (21:21)
[2023-06-14] MEDS: MIRTAZAPINE 15 MG TABLET 30 MG PO (21:21)
[2023-06-14] MEDS: LACTATED RINGER'S SOLUTION 1,000 ML 100 ML IV (21:21)
[2023-06-14] MEDS: HYOSCYAMINE SULFATE 0.125 MG TAB.SUBL 0.25 MG SL (21:21)
[2023-06-14] MEDS: ACETAMINOPHEN 500 MG TABLET 1000 MG PO (21:22)
[2023-06-14] MEDS: PIPERACILLIN SODIUM/TAZOBACTAM 3.375 GM in 0.9 % SODIUM CHLORIDE 50 ML IV (21:22)
[2023-06-14] MEDS: TOPIRAMATE 100 MG TABLET PO (21:22)
[2023-06-14] MEDS: [UNRECOGNIZED DRUG - OTHER] 45 EACH FEED TUBE ×4 (21:23→23:49)
[2023-06-15] VITALS (7 sets, daily range): BP systolic 117–136; BP diastolic 66–84; PULSE 65–82; TEMP 36.3–36.7; O2SAT 94–100; BMI 27.4
[2023-06-15] MEDS: [UNRECOGNIZED DRUG - OTHER] 45 EACH FEED TUBE ×10 (00:47→09:44)
[2023-06-15] MEDS: HYOSCYAMINE SULFATE 0.125 MG TAB.SUBL 0.25 MG SL ×4 (02:27→21:43)
[2023-06-15] MEDS: ORPHENADRINE 60 MG/ 2 ML VIAL IV ×2 (02:27→14:31)
[2023-06-15] MEDS: METOCLOPRAMIDE HCL 10 MG/2 ML VIAL IVP ×4 (02:27→21:43)
[2023-06-15] MEDS: HYDROMORPHONE HCL 0.5 MG/0.5 ML SYRINGE IV ×4 (04:20→19:44)
[2023-06-15] MEDS: PIPERACILLIN SODIUM/TAZOBACTAM 3.375 GM in 0.9 % SODIUM CHLORIDE 50 ML IV ×3 (04:21→21:42)
[2023-06-15 04:59] LABS: Basophils Percent Auto 1.3 % (0.2-2.0); Eosinophils Absolute Auto 0.2 10^3/uL (0.0-0.7); Eosinophils Percent Auto 4.7 % (0.9-7.0); Hematocrit 31.2 % (36.0-48.0); Hemoglobin 10.1 g/dL (12.0-16.0); Lymphocytes Absolute Auto 1.2 10^3/uL (1.2-3.8); Lymphocytes Percent Auto 36.7 % (20.5-60.0); Mean Corpuscular HGB Conc 32.4 g/dL (29.9-35.2); Mean Corpuscular Hemoglobin 30.1 pg (26.7-34.0); Mean Corpuscular Volume 93.1 fL (81.0-99.0); Mean Platelet Volume 11.9 fL (9.5-13.5); Monocytes Absolute Auto 0.3 10^3/uL (0.3-0.8); Monocytes Percent Auto 9.5 % (1.7-12.0); Neutrophils Absolute Auto 1.5 10^3/uL (1.4-6.5); Neutrophils Percent Auto 47.8 % (43.0-75.0); Platelet Count 192 10^3/uL (150-450); Red Blood Count 3.35 10^6/uL (4.20-5.40); Red Cell Distribution Width 13.7 % (11.0-15.0); White Blood Count 3.2 10^3/uL (4.0-11.0)
[2023-06-15 05:13] LABS: Alanine Aminotransferase 13 U/L (14-59); Albumin Level 2.9 g/dL (3.4-5.0); Alkaline Phosphatase 48 U/L (46-116); Anion Gap 10.4; Aspartate Amino Transferase 20 U/L (15-37); BUN Creatinine Ratio 15.5; Bilirubin Total 0.3 mg/dL (0.2-1.0); Calcium 8.3 mg/dL (8.5-10.1); Carbon Dioxide 27.2 mmol/L (21.0-32.0); Chloride 108 mmol/L (98-107); Estimated GFR (African America >60 (>=60); Estimated GFR (Non-African Ame >60 (>=60); Globulin 2.8 g/dL; Glucose 105 mg/dL (74-106); Magnesium 2.1 mg/dL (1.8-2.4); Potassium 3.6 mmol/L (3.5-5.1); Sodium 142 mmol/L (136-145); Total Protein 5.7 g/dL (6.4-8.2)
[2023-06-15] MEDS: BUSPIRONE HCL 10 MG TABLET PO ×3 (05:39→21:43)
[2023-06-15] MEDS: LEVOTHYROXINE SODIUM 75 MCG TABLET PO (05:40)
[2023-06-15] MEDS: LACTATED RINGER'S SOLUTION 1,000 ML 100 ML IV (07:01)
--- NOTE | 2023-06-15 08:08 | P.PN_ITS ---
Progress Note: Subjective Subjective Interval history: Nausea is somewhat better. Pain persisting but has improved. Not having significant urine output per patient Exam Constitutional Vital Signs, click to edit/add: Last Vital Signs Temp 97.9 F 06/15/23 07:48 Pulse 67 06/15/23 07:48 Resp 18 06/15/23 07:48 BP 126/84 06/15/23 07:48 Pulse Ox 97 06/15/23 07:48 O2 Del Method Room Air 06/15/23 07:48 Documenting provider has reviewed patient's vital signs: yes Common normals: no apparent distress (Does seem more comfortable this morning) Exam limitations: no altered mental status and no behavioral limitations General appearance: not comfortable HENMT Common normals: oral mucous membranes not moist (Somewhat dry mucous membranes) Chest Common normals: inspection of chest normal and palpation of chest normal Respiratory Common normals: normal respiratory effort and no retractions Cardio Common normals: regular rate, regular rhythm, S1 normal heart sound and no murmurs GI Common normals: negative for Normal to inspection, nondistended, normoactive bowel sounds present (Feeding tube left upper abdomen.) and tender Palpation: tender (Last tenderness left-sided. She does have rebound tenderness Persisting ) and rebound tenderness present (Palpation of right side causing left-sided abdominal pain persisting) Progress Note: Objective Labs Labs: Short CBC 06/14/23 06/15/23 Range/Units 13:39 04:30 WBC 4.8 3.2 L (4.0-11.0) 10^3/uL Hgb 12.4 10.1 L (12.0-16.0) g/dL Hct 37.2 31.2 L (36.0-48.0) % Plt Count 239 192 (150-450) 10^3/uL BMP 06/14/23 06/15/23 13:39 04:30 Sodium 140 142 Potassium 3.4 L 3.6 Chloride 104 108 H Carbon Dioxide 25.3 27.2 BUN 13.0 11.0 Creatinine 0.83 0.71 Glucose 89 105 Calcium 9.3 8.3 L Liver Function 06/14/23 06/15/23 Range/Units 13:39 04:30 Total Bilirubin 0.5 0.3 (0.2-1.0) mg/dL AST 30 20 (15-37) U/L ALT 23 13 L (14-59) U/L Alkaline Phosphatase 67 48 (46-116) U/L Albumin 4.0 2.9 L (3.4-5.0) g/dL Urine 06/14/23 Range/Units 13:43 Urine Color Lt. yellow (YELLOW) Urine Clarity Clear (CLEAR) Urine pH 7.5 (5.0-9.0) Ur Specific [place] <=1.005 A (1.005-1.025) Urine Protein Negative (NEG/TRACE) mg/dL Urine Glucose (UA) Negative (NEGATIVE) mg/dL Progress Note: A&P Assessment and Plan (1) Intractable nausea and vomiting: (2) Intractable abdominal pain: (3) Acute abdomen: Plan Admission findings: Patient was a very complicated past history of abdominal surgeries. Now with PEG tube now with increasing nausea vomiting. On exam she does have an acute abdomen with positive rebound tenderness and positive left abdominal pain with palpation of right side, continue with IV antibiotics. Although acute abdominal findings are somewhat improved. Today she states the nausea has improved. But she has not taken anything by mouth. Tolerated tube feeds overnight. Will advance diet to clear liquids today. Discussed case with specialist. Patient denies significant urine output so maintain IV fluid hydr ation. Neutropenia today-May be secondary to the acute abdominal findings as outlined above-continue to monitor Hypokalemia-supplement Iron deficiency anemia-supplement L Dehydration with patient describing orthostatic hypotension with near syncope upon standing. Continue with IV hydration, patient states really not having significant urine output. Moderate (correction from severe in prev document) protein calorie malnutrition requiring tube feeds. Will continue with low-dose tube feeds for 18 hours of the day. Giving her some bowel rest in between times. No evidence for leak on CT scan. Maintain current treatment plan. Plan was to set up for Home TPN, since here, line placed, will start now to ensure no severe hyperglycemia. Consult SS for home tpn arrangements at [place] Generalized anxiety disorder-will need to continue with her current medications of stopping them elicits significant side effects Hypothyroidism-maintain medications Back pain, she uses methocarbamol for that-will do IV Norflex Admission status: Patient is a multiple tries of treating this as an outpatient without success. Now with possible acute abdomen and with abdominal rebound tenderness in abdominal pain and opposite palpation. Starting IV antibiotics. Continue IV fluids. Medically necessary treatment will span 2 midnights. ?
--- NOTE | 2023-06-15 08:08 | CM.NOTE ---
Rounds made with Dr. Alas, will advance pt's diet today to [facility]. Pt denies any further nausea at this time. Pt continues with feedings through PEG tube.
[2023-06-15] MEDS: LIOTHYRONINE SODIUM 5 MCG TABLET PO (08:25)
[2023-06-15] MEDS: TOPIRAMATE 100 MG TABLET PO ×2 (08:25→21:43)
[2023-06-15] MEDS: BUTALB/ACETAMINOPHEN/CAFFEINE 50-325-40MG TABLET 1 TAB PO ×2 (08:25→16:28)
[2023-06-15] MEDS: ESCITALOPRAM 10 MG TABLET 20 MG PO (08:25)
[2023-06-15] MEDS: PANTOPRAZOLE SODIUM 40 MG VIAL IV (08:26)
--- NOTE | 2023-06-15 10:07 | DIETREC ---
TPN recommendation: Clinimix E 5/20 @ 75 mL/hour continuous; 1800 mL TV q24 hours.
--- NOTE | 2023-06-15 10:50 | SWNOTE1 ---
SW received order to work on setting up TPN at home.
[2023-06-15 11:06] LABS: Glucometer 112 mg/dL (74-106)
--- NOTE | 2023-06-15 11:55 | SWNOTE1 ---
SW met with pt to discuss dc needs, TPN. Pt is current with [facility] and provided nurses name and number. Pt also current with [facility] in [place] who provide the tube feeds for at home, pt provided number for them as well. Pt would like to use both for TPN at home. SW to contact both. SW sent updates to [place] ,. Updates included; face sheet, physician notes, PICC line information, medication information and advised them of TPN starting at home.
--- NOTE | 2023-06-15 13:21 | SWNOTE1 ---
SW spoke to person at [facility] and she will need clinical documentation and TPN formula (script) and who will be following doctor. SW sent over what is documented and med list to [facility].
[2023-06-15] MEDS: ONDANSETRON PF 4 MG/2 ML VIAL IV ×2 (14:30→19:44)
[2023-06-15] MEDS: MULTIVIT INFUSN,ADULT 4,VIT K 10 ML in AA 5 %/CALCIUM/LYTES/DEXT 20 % 1,000 ML 75 ML IV (14:44)
--- NOTE | 2023-06-15 15:09 | SWNOTE1 ---
SW received call back from [facility] and they need to know who the following doctor is for TPN, they recommended SW call Dr. Busby at [facility] or her PCP Dr. Melo? They provided SW with numbers. SW attempted Dr. Busby, left message.
--- NOTE | 2023-06-15 15:46 | SWNOTE1 ---
SW spoke to pt's GI doctor marketing secretary, pt has only saw Dr. Kasie Nichole in [address] and she will not follow as she did not order the TPN.
--- NOTE | 2023-06-15 15:49 | SWNOTE1 ---
MIRYAM called pt's PCP, Anna Ozuna, spoke to her nurse and she will send message to Anna to see if she will follow TPN at home. She will call MIRYAM back.
[2023-06-15 16:28] LABS: Glucometer 145 mg/dL (74-106)
[2023-06-15] MEDS: LACTATED RINGER'S SOLUTION 1,000 ML 70 ML IV (16:28)
--- NOTE | 2023-06-15 16:31 | SWNOTE1 ---
If Anna can't follow then pt will switch to Dr. Alas.
[2023-06-15] MEDS: MIRTAZAPINE 15 MG TABLET 30 MG PO (21:43)
[2023-06-15] MEDS: DIPHENHYDRAMINE HCL 25 MG CAPSULE PO (21:43)
[2023-06-16] VITALS (11 sets, daily range): BP systolic 102–127; BP diastolic 63–84; PULSE 63–83; TEMP 36.3–36.7; O2SAT 98–100
[2023-06-16] MEDS: ONDANSETRON PF 4 MG/2 ML VIAL IV ×3 (00:09→12:08)
[2023-06-16] MEDS: HYDROMORPHONE HCL 0.5 MG/0.5 ML SYRINGE IV ×6 (00:09→20:40)
[2023-06-16 01:18] LABS: Glucometer 143 mg/dL (74-106)
[2023-06-16] MEDS: LACTATED RINGER'S SOLUTION 1,000 ML 70 ML IV ×2 (04:16→19:05)
[2023-06-16] MEDS: PIPERACILLIN SODIUM/TAZOBACTAM 3.375 GM in 0.9 % SODIUM CHLORIDE 50 ML IV ×3 (04:16→21:27)
[2023-06-16] MEDS: ORPHENADRINE 60 MG/ 2 ML VIAL IV ×2 (04:17→15:40)
[2023-06-16] MEDS: HYOSCYAMINE SULFATE 0.125 MG TAB.SUBL 0.25 MG SL ×4 (04:17→20:40)
[2023-06-16] MEDS: METOCLOPRAMIDE HCL 10 MG/2 ML VIAL IVP ×4 (04:17→20:40)
[2023-06-16] MEDS: MULTIVIT INFUSN,ADULT 4,VIT K 10 ML in AA 5 %/CALCIUM/LYTES/DEXT 20 % 1,000 ML 75 ML IV ×2 (04:27→18:15)
[2023-06-16] MEDS: DIPHENHYDRAMINE HCL 25 MG CAPSULE PO ×3 (04:31→21:32)
[2023-06-16 04:55] LABS: Eosinophils Absolute Auto 0.2 10^3/uL (0.0-0.7); Eosinophils Percent Auto 6.1 % (0.9-7.0); Hematocrit 33.5 % (36.0-48.0); Immature Granulocytes Abs Auto 0.01 10^3/uL (0.00-0.03); Immature Granulocytes Pct Auto 0.3 % (0.0-0.5); Lymphocytes Absolute Auto 1.2 10^3/uL (1.2-3.8); Lymphocytes Percent Auto 39.2 % (20.5-60.0); Mean Corpuscular HGB Conc 32.8 g/dL (29.9-35.2); Mean Corpuscular Hemoglobin 30.4 pg (26.7-34.0); Mean Corpuscular Volume 92.5 fL (81.0-99.0); Mean Platelet Volume 11.6 fL (9.5-13.5); Monocytes Absolute Auto 0.3 10^3/uL (0.3-0.8); Monocytes Percent Auto 10.5 % (1.7-12.0); Neutrophils Absolute Auto 1.4 10^3/uL (1.4-6.5); Neutrophils Percent Auto 42.9 % (43.0-75.0); Platelet Count 170 10^3/uL (150-450); Red Blood Count 3.62 10^6/uL (4.20-5.40); Red Cell Distribution Width 13.6 % (11.0-15.0); White Blood Count 3.1 10^3/uL (4.0-11.0)
[2023-06-16 05:17] LABS: Alanine Aminotransferase 14 U/L (14-59); Albumin Globulin Ratio 0.9; Albumin Level 2.8 g/dL (3.4-5.0); Alkaline Phosphatase 42 U/L (46-116); Anion Gap 10.7; Aspartate Amino Transferase 17 U/L (15-37); BUN Creatinine Ratio 15.3; Bilirubin Total 0.4 mg/dL (0.2-1.0); Calcium 8.2 mg/dL (8.5-10.1); Carbon Dioxide 25.2 mmol/L (21.0-32.0); Chloride 108 mmol/L (98-107); Estimated GFR (African America >60 (>=60); Estimated GFR (Non-African Ame >60 (>=60); Glucose 71 mg/dL (74-106); Potassium 3.9 mmol/L (3.5-5.1); Sodium 140 mmol/L (136-145); Total Protein 5.8 g/dL (6.4-8.2)
[2023-06-16] MEDS: BUSPIRONE HCL 10 MG TABLET PO ×3 (06:01→21:28)
[2023-06-16] MEDS: LEVOTHYROXINE SODIUM 75 MCG TABLET PO (06:01)
--- NOTE | 2023-06-16 08:11 | CM.NOTE ---
Rounds made with Dr. Alas. Plan for discharge today. Currently has appointments with GI Specialist and General Surgery on Wednesday.
--- NOTE | 2023-06-16 08:17 | P.DS_ITS ---
DS: Providers Provider Date of admission: 06/14/23 17:55 Primary care physician: JAQUAN MORROW Consults: 06/14/23 Consult to Dietitian Routine Reason for consultation: malnutrition 06/14/23 17:55 Consult to Pharmacy Routine Consulting Provider: Reason for consultation: Please [place] me when Med Rec is Updated Has provider been notified: No Occupational Therapy Eval and Treat Routine Reason for consultation: Only if needed for Rehab Has provider been notified: No Physical Therapy Eval and Treat Routine Reason for consultation: Eval and Treat Has provider been notified: No 06/15/23 09:19 Consult to Dietitian Routine Reason for consultation: TPN recommendations Has provider been notified: No 06/15/23 09:24 Consult to Glove Wrapper Routine Reason for consult:: Durable Medical Equipment Other reason:: Home TPN Set up DS: Diagnosis Discharge Diagnosis (1) Intractable nausea and vomiting: (2) Intractable abdominal pain: (3) Acute abdomen: Plan Admission findings: Patient was a very complicated past history of abdominal surgeries. Now with PEG tube now with increasing nausea vomiting. On exam she does have an acute abdomen with positive rebound tenderness and positive left abdominal pain with palpation of right side, continue with IV antibiotics. Although acute abdominal findings are somewhat improved. Improving at the time of discharge Neutropenia today-May be secondary to the acute abdominal findings as outlined a gege-stable at the time of discharge Hypokalemia- Improving at the time of discharge Iron deficiency anemia- Improving at the time of discharge Dehydration with patient describing orthostatic hypotension with near syncope upon standing. Improving at the time of discharge Moderate (correction from severe in prev document) protein calorie malnutrition requiring tube feeds. So far tolerating tube feeds and TPN 18 hours on 6 hours off Generalized anxiety disorder- Improving at the time of discharge Hypothyroidism-stable at the time of discharge Back pain, she uses methocarbamol for that-stable Admission status: Patient is a multiple tries of treating this as an outpatient without success. Now with possible acute abdomen and with abdominal rebound tenderness in abdominal pain and opposite palpation. Starting IV antibiotics. Continue IV fluids. Medically necessary treatment will span 2 midnights. ? ? DS: Summary Hospital Course Hospital Course: Patient with very extensive history of surgeries for her abdomen. Status post gastric bypass surgery, complications and with feeding. She has been placed on a feeding tube. She came into the emergency room with hyperemesis and increasing abdominal pain. She had acute abdominal findings on exam. CT scan did not show any abscess formation but was done without oral contrast. She was maintained on antibiotics while she was here. We advanced her diet yesterday to clear liquids. She is tolerating that well. Just some nausea, mild increase in her pain but no emesis. At this point we will try it at home with the TPN and tube feeds as outlined in the chart. She can maintain clear liquids at home as well. She has a visit with the specialist in 2 days. At this point medically stable for discharge. Medications for this. Follow-up with her PCP within the next week. Time Spent with Patient Time attestation: Total time spent providing and/or coordinating discharge services: Exam Constitutional Vital Signs, click to edit/add: Last Vital Signs Temp 97.6 F 06/16/23 07:59 Pulse 63 06/16/23 07:59 Resp 18 06/16/23 07:59 BP 126/84 06/16/23 07:59 Pulse Ox 99 06/16/23 07:59 O2 Del Method Room Air 06/16/23 07:59 Documenting provider has reviewed patient's vital signs: yes Common normals: no apparent distress (Does seem more comfortable this morning) Exam limitations: no altered mental status and no behavioral limitations General appearance: not comfortable [facility] Common normals: oral mucous membranes not moist (Somewhat dry mucous membranes) Chest Common normals: inspection of chest normal and palpation of chest normal Respiratory Common normals: normal respiratory effort and no retractions Cardio Common normals: regular rate, regular rhythm, S1 normal heart sound and no murmurs GI Common normals: negative for Normal to inspection, nondistended, normoactive bowel sounds present (Feeding tube left upper abdomen.) and tender (Improved) Palpation: tender (Less tenderness) and rebound tenderness present (Tenderness improved) DS: Data Data Completed and Pending Labs on day of discharge: Labs from last 24 hours 06/16/23 06/16/23 06/15/23 04:26 00:04 16:28 WBC 3.1 L RBC 3.62 L Hgb 11.0 L Hct 33.5 L MCV 92.5 MCH 30.4 MCHC 32.8 RDW 13.6 Plt Count 170 MPV 11.6 Neut % (Auto) 42.9 L Lymph % (Auto) 39.2 [place] % (Auto) 10.5 Eos % (Auto) 6.1 Baso % (Auto) 1.0 Neut # (Auto) 1.4 Lymph # (Auto) 1.2 [place] # (Auto) 0.3 Eos # (Auto) 0.2 Baso # (Auto) 0.0 Abs Immat Gran (auto) 0.01 Imm/Tot Granulo (auto) 0.3 Sodium 140 Potassium 3.9 Chloride 108 H Carbon Dioxide 25.2 Anion Gap 10.7 BUN 11.0 Creatinine 0.72 Est GFR ( Amer) >60 Est GFR (Non-Af Amer) >60 BUN/Creatinine Ratio 15.3 Glucose 71 L Calcium 8.2 L Total Bilirubin 0.4 AST 17 ALT 14 Alkaline Phosphatase 42 L Total Protein 5.8 L Albumin 2.8 L Globulin 3.0 Albumin/Globulin Ratio 0.9 POC Glucose 143 H 145 H 06/15/23 11:05 WBC RBC Hgb Hct MCV MCH MCHC RDW Plt Count MPV Neut % (Auto) Lymph % (Auto) [place] % (Auto) Eos % (Auto) Baso % (Auto) Neut # (Auto) Lymph # (Auto) [place] # (Auto) Eos # (Auto) Baso # (Auto) Abs Immat Gran (auto) Imm/Tot Granulo (auto) Sodium Potassium Chloride Carbon Dioxide Anion Gap BUN Creatinine Est GFR ( Amer) Est GFR (Non-Af Amer) BUN/Creatinine Ratio Glucose Calcium Total Bilirubin AST ALT Alkaline Phosphatase Total Protein Albumin Globulin Albumin/Globulin Ratio POC Glucose 112 H Discharge Plan Discharge Disposition: Home, Self-Care Discharge Medications: New jjtoqtatkx-pflhtbcvqcadb-fomk 50-325-40 mg Tablet 1 tab PO Q4H PRN (Reason: Headache) Qty: 20 0RF IV with Additives Amino Acids 5 %/Dextrose 20 % [Clinimix 5%-20% Solution] 1000 ML 30 mls/hr IV Ordered By: Thomas Alas MD Last Taken: Unknown Multivit Infusn,Adult 4,Vit K [Infuvite Adult] 10 ML Amino Acids 5 %/Dextrose 20 % [Clinimix 5%-20% Solution] 1000 ML 30 mls/hr IV Q17H Ordered By: Thomas Alas MD Last Taken: Unknown Nutrin 45 ml feeding tube Q1H Qty: 3000 11RF valacyclovir 500 mg Tablet 1,000 mg PO BID Qty: 14 0RF TPN Electrolytes 35-20-5 mEq/20 mL solution 50 ml IV Q1H 360 Days Rx Instructions: On for 18 hours, off for 6 hours prochlorperazine maleate [Compazine] 10 mg tablet 10 mg PO Q6H PRN (Reason: nausea and vomiting) Qty: 60 3RF tramadol 50 mg tablet 50 mg PO Q6H PRN (Reason: pain) Qty: 28 0RF Continued hydroxyzine HCl 25 mg tablet 25 mg PO BID PRN (Reason: anxiety) liothyronine 5 mcg tablet 5 mcg PO QDAY topiramate 100 mg tablet 100 mg PO BID buspirone 10 mg tablet 10 mg PO TID methocarbamol 750 mg tablet 750 mg PO TID metoclopramide HCl 10 mg tablet 10 mg PO AC Linzess 290 mcg capsule 290 mcg PO DAILY albuterol sulfate 90 mcg/actuation HFA aerosol inhaler 2 puff INHALATION Q6H PRN (Reason: shortness of breath or wheezing) levothyroxine 75 mcg tablet 75 mcg PO .ACB escitalopram oxalate 20 mg tablet 20 mg PO DAILY mirtazapine 30 mg tablet 30 mg PO .HS pantoprazole 40 mg tablet,delayed release (DR/EC) 40 mg PO DAILY Print Language: Albanian Forms: Portal Instructions Follow Up Appointments: Has appt. Wed. 06/17 with her GI surgeon Discharge location: [facility]
--- NOTE | 2023-06-16 09:32 | SWNOTE1 ---
Dr Alas voiced he will follow outpt. MIRYAM did get a call from Anna Ozuna office and she will follow, SW to verify with Dr. Alas that he still wants to follow. MIRYAM received call from [facility] and they need labs from today and the pharmacy formulary. MIRYAM sent over [facility] med rec and labs from today to [facility]. MIRYAM also faxed over script.
[2023-06-16] MEDS: LIOTHYRONINE SODIUM 5 MCG TABLET PO (09:52)
[2023-06-16] MEDS: VALACYCLOVIR HCL 500 MG TABLET 1000 MG PO ×2 (09:52→20:40)
[2023-06-16] MEDS: TOPIRAMATE 100 MG TABLET PO ×2 (09:53→20:40)
[2023-06-16] MEDS: ESCITALOPRAM 10 MG TABLET 20 MG PO (09:53)
--- NOTE | 2023-06-16 09:57 | SWNOTE1 ---
Dr. Alas would like Anna to follow. MIRYAM called [facility] and informed them and provided number to them. MIRYAM called Anna's office and let them know an infusion company will be calling and that Dr. Alas would like her to follow.
[2023-06-16] MEDS: PANTOPRAZOLE SODIUM 40 MG VIAL IV (10:28)
[2023-06-16 11:12] LABS: Phosphorus 4.9 mg/dL (2.6-4.7)
--- NOTE | 2023-06-16 11:20 | SWNOTE1 ---
SW has been back and forth with [facility]. They spoke with our pharmacy with updated orders. SW waiting on phos and mag labs to be in chart and will send to [facility]. MIRYAM left message with [facility] to let them know Anna Mendez is following and SW waiting for [facility] to confirm they are delivering TPN.
[2023-06-16 11:30] LABS: Glucometer 59 mg/dL (74-106)
--- NOTE | 2023-06-16 11:30 | SWNOTE1 ---
labs with phos and mag sent over to specialty clinic.
[2023-06-16 12:04] LABS: Glucometer 80 mg/dL (74-106)
--- NOTE | 2023-06-16 13:24 | SWNOTE1 ---
SW received a call from [facility] and pt's insurance is inactive as of yesterday at 11:59pm. SW spoke to pt and she was on the phone with her . He voiced that pt is active on his insurance as of 12:01am today. MIRYAM asked if they have a card. HE stated no, but he can get some kind of proof through an email he has. MIRYAM requested this as we will need for the home health and infusion company for them to provide services. MIRYAM is not sure this will work, but we can try.
--- NOTE | 2023-06-16 14:30 | SWNOTE1 ---
SW received email with insurance information, SW sent on to Geovanny and Tomasa at [facility]. SW received call back from both places and they need an ID number. SW sent email to pt and she had her reach out to . SW received call from pt and ID number was provided. SW called to [facility] and [facility] with ID number.
--- NOTE | 2023-06-16 14:48 | SWNOTE1 ---
ID number provided by pt's . MIRYAM called this in to infusion [facility] and , also pt's husbands date of . [facility] is able to pull it up but have to confirm with there billing office that this is enough information. Infusion place took down information and has to confirm with billing office as well. [employer] also just received message from the dietary dept and Anna Mendez is NOT following. MIRYAM messaged Dr. Alas and infusion place is now going to call Dr. Alas's office. MIRYAM notified Dr. Alas. At this point pt's discharge will not take place today due to insurance issues.
--- NOTE | 2023-06-16 15:30 | SWNOTE1 ---
[facility] voiced she talked to business dept and they can follow as long as pt and have initiated getting pt on his insurance through his HR. SW does have confirmation that he has been emailing HR and effective 06/16/23 he has PPO family coverage. MIRYAM left Jinny a voicemail at [facility] and did let her know SW can forward on email if needed.
--- NOTE | 2023-06-16 15:45 | SWNOTE1 ---
SW received email from Ruba at [facility] and they can follow.
[2023-06-16 15:57] LABS: Glucometer 92 mg/dL (74-106)
[2023-06-16] MEDS: DIPHENHYDRAMINE HCL 50 MG/ML (1ML) VIAL 25 MG IV (16:44)
[2023-06-16] MEDS: NEOMYCIN/POLYMYXIN B/DEXAMETHA OP SUSP 100 DROP/5 ML BOTTLE OP ×2 (18:14→21:28)
[2023-06-16 18:48] LABS: Glucometer 62 mg/dL (74-106)
[2023-06-16] MEDS: MIRTAZAPINE 15 MG TABLET 30 MG PO (21:27)
[2023-06-17] MEDS: HYDROMORPHONE HCL 0.5 MG/0.5 ML SYRINGE IV ×4 (01:22→15:42)
[2023-06-17] MEDS: HYOSCYAMINE SULFATE 0.125 MG TAB.SUBL 0.25 MG SL ×3 (03:58→14:34)
[2023-06-17] MEDS: METOCLOPRAMIDE HCL 10 MG/2 ML VIAL IVP ×3 (03:58→14:34)
[2023-06-17] MEDS: ORPHENADRINE 60 MG/ 2 ML VIAL IV ×2 (03:58→14:34)
[2023-06-17 04:00] VITALS: BP 109/76; PULSE 83; TEMP 36.3; O2SAT 98
[2023-06-17] MEDS: PIPERACILLIN SODIUM/TAZOBACTAM 3.375 GM in 0.9 % SODIUM CHLORIDE 50 ML IV (04:00)
[2023-06-17 05:01] VITALS: O2SAT 100
[2023-06-17] MEDS: BUSPIRONE HCL 10 MG TABLET PO ×2 (05:22→14:34)
[2023-06-17 05:28] LABS: Basophils Percent Auto 1.1 % (0.2-2.0); Eosinophils Absolute Auto 0.2 10^3/uL (0.0-0.7); Eosinophils Percent Auto 6.2 % (0.9-7.0); Hematocrit 33.2 % (36.0-48.0); Hemoglobin 10.8 g/dL (12.0-16.0); Lymphocytes Absolute Auto 1.4 10^3/uL (1.2-3.8); Lymphocytes Percent Auto 39.9 % (20.5-60.0); Mean Corpuscular HGB Conc 32.5 g/dL (29.9-35.2); Mean Corpuscular Hemoglobin 30.3 pg (26.7-34.0); Mean Corpuscular Volume 93.3 fL (81.0-99.0); Mean Platelet Volume 11.4 fL (9.5-13.5); Monocytes Absolute Auto 0.3 10^3/uL (0.3-0.8); Monocytes Percent Auto 8.8 % (1.7-12.0); Neutrophils Absolute Auto 1.6 10^3/uL (1.4-6.5); Platelet Count 209 10^3/uL (150-450); Red Blood Count 3.56 10^6/uL (4.20-5.40); Red Cell Distribution Width 13.5 % (11.0-15.0); White Blood Count 3.5 10^3/uL (4.0-11.0)
[2023-06-17 05:55] LABS: Alanine Aminotransferase 15 U/L (14-59); Albumin Level 3.2 g/dL (3.4-5.0); Alkaline Phosphatase 45 U/L (46-116); Anion Gap 13.1; Aspartate Amino Transferase 19 U/L (15-37); BUN Creatinine Ratio 18.5; Bilirubin Total 0.4 mg/dL (0.2-1.0); Calcium 8.6 mg/dL (8.5-10.1); Carbon Dioxide 23.6 mmol/L (21.0-32.0); Chloride 106 mmol/L (98-107); Estimated GFR (African America >60 (>=60); Estimated GFR (Non-African Ame >60 (>=60); Globulin 3.2 g/dL; Glucose 96 mg/dL (74-106); Potassium 3.7 mmol/L (3.5-5.1); Sodium 139 mmol/L (136-145); Total Protein 6.4 g/dL (6.4-8.2)
[2023-06-17] MEDS: LEVOTHYROXINE SODIUM 75 MCG TABLET PO (07:52)
[2023-06-17] MEDS: NEOMYCIN/POLYMYXIN B/DEXAMETHA OP SUSP 100 DROP/5 ML BOTTLE OP ×2 (07:52→14:34)
[2023-06-17 08:00] VITALS: BP 113/77; PULSE 60; TEMP 36.3; O2SAT 99
--- NOTE | 2023-06-17 08:36 | P.DS_ITS ---
DS: Providers Provider Date of admission: 06/14/23 17:55 Primary care physician: JAQUAN MORROW Consults: 06/14/23 Consult to Dietitian Routine Reason for consultation: malnutrition 06/14/23 17:55 Consult to Pharmacy Routine Consulting Provider: Reason for consultation: Please [place] me when Med Rec is Updated Has provider been notified: No Occupational Therapy Eval and Treat Routine Reason for consultation: Only if needed for Rehab Has provider been notified: No Physical Therapy Eval and Treat Routine Reason for consultation: Eval and Treat Has provider been notified: No 06/15/23 09:19 Consult to Dietitian Routine Reason for consultation: TPN recommendations Has provider been notified: No 06/15/23 09:24 Consult to Pencil Inspector Routine Reason for consult:: Durable Medical Equipment Other reason:: Home TPN Set up DS: Diagnosis Discharge Diagnosis (1) Intractable nausea and vomiting: (2) Intractable abdominal pain: (3) Acute abdomen: Plan See previous discharge summary DS: Summary Hospital Course Hospital Course: Patient with very extensive history of surgeries for her abdomen. Status post gastric bypass surgery, complications and with feeding. She has been placed on a feeding tube. She came into the emergency room with hyperemesis and increasing abdominal pain. She had acute abdominal findings on exam. CT scan did not show any abscess formation but was done without oral contrast. She was maintained on antibiotics while she was here. We advanced her diet yesterday to clear liquids. She is tolerating that well. Just some nausea, mild increase in her pain but no emesis. At this point we will try it at home with the TPN and tube feeds as outlined in the chart. She can maintain clear liquids at home as well. She has a visit with the specialist in 2 days. At this point medically stable for discharge. Medications for this. Follow-up with her PCP within the next week. She has a visit with her specialist tomorrow. Keep that visit. Home infusion should be set up today and discharged today Time Spent with Patient Time attestation: Total time spent providing and/or coordinating discharge services: Time spent: greater than 30 minutes Exam Constitutional Vital Signs, click to edit/add: Last Vital Signs Temp 97.4 F L 06/17/23 04:00 Pulse 83 06/17/23 04:00 Resp 18 06/17/23 04:00 BP 109/76 06/17/23 04:00 Pulse Ox 100 06/17/23 05:01 O2 Del Method Room Air 06/17/23 05:01 Documenting provider has reviewed patient's vital signs: yes Common normals: no apparent distress (Does seem more comfortable this morning) Exam limitations: no altered mental status and no behavioral limitations General appearance: not comfortable [facility] Common normals: oral mucous membranes not moist (Somewhat dry mucous membranes) Chest Common normals: inspection of chest normal and palpation of chest normal Respiratory Common normals: normal respiratory effort and no retractions Cardio Common normals: regular rate, regular rhythm, S1 normal heart sound and no murmurs GI Common normals: negative for Normal to inspection, nondistended, normoactive bowel sounds present (Feeding tube left upper abdomen.) and tender (Improved) Palpation: tender (Less tenderness) and rebound tenderness present (Tenderness improved) DS: Data Data Completed and Pending Labs on day of discharge: Labs from last 24 hours 06/17/23 06/16/23 06/16/23 05:16 18:47 15:55 WBC 3.5 L RBC 3.56 L Hgb 10.8 L Hct 33.2 L MCV 93.3 MCH 30.3 MCHC 32.5 RDW 13.5 Plt Count 209 MPV 11.4 Neut % (Auto) 44.0 Lymph % (Auto) 39.9 [place] % (Auto) 8.8 Eos % (Auto) 6.2 Baso % (Auto) 1.1 Neut # (Auto) 1.6 Lymph # (Auto) 1.4 [place] # (Auto) 0.3 Eos # (Auto) 0.2 Baso # (Auto) 0.0 Abs Immat Gran (auto) 0.00 Imm/Tot Granulo (auto) 0.0 Sodium 139 Potassium 3.7 Chloride 106 Carbon Dioxide 23.6 Anion Gap 13.1 BUN 15.0 Creatinine 0.81 Est GFR ( Amer) >60 Est GFR (Non-Af Amer) >60 BUN/Creatinine Ratio 18.5 Glucose 96 Calcium 8.6 Phosphorus Magnesium Total Bilirubin 0.4 AST 19 ALT 15 Alkaline Phosphatase 45 L Total Protein 6.4 Albumin 3.2 L Globulin 3.2 Albumin/Globulin Ratio 1.0 POC Glucose 62 L 92 06/16/23 06/16/23 06/16/23 12:01 11:27 04:26 WBC RBC Hgb Hct MCV MCH MCHC RDW Plt Count MPV Neut % (Auto) Lymph % (Auto) [place] % (Auto) Eos % (Auto) Baso % (Auto) Neut # (Auto) Lymph # (Auto) [place] # (Auto) Eos # (Auto) Baso # (Auto) Abs Immat Gran (auto) Imm/Tot Granulo (auto) Sodium Potassium Chloride Carbon Dioxide Anion Gap BUN Creatinine Est GFR ( Amer) Est GFR (Non-Af Amer) BUN/Creatinine Ratio Glucose Calcium Phosphorus 4.9 H Magnesium 2.0 Total Bilirubin AST ALT Alkaline Phosphatase Total Protein Albumin Globulin Albumin/Globulin Ratio POC Glucose 80 59 L Discharge Plan Discharge Disposition: Home, Self-Care Discharge Medications: New soxxgpdscy-cuetbfmffsdfb-haei 50-325-40 mg Tablet 1 tab PO Q4H PRN (Reason: Headache) Qty: 20 0RF IV with Additives Amino Acids 5 %/Dextrose 20 % [Clinimix 5%-20% Solution] 1000 ML 30 mls/hr IV Ordered By: Thomas Alas MD Last Taken: Unknown Multivit Infusn,Adult 4,Vit K [Infuvite Adult] 10 ML Amino Acids 5 %/Dextrose 20 % [Clinimix 5%-20% Solution] 1000 ML 30 mls/hr IV Q17H Ordered By: Thomas Alas MD Last Taken: Unknown Nutrin 45 ml feeding tube Q1H Qty: 3000 11RF valacyclovir 500 mg Tablet 1,000 mg PO BID Qty: 14 0RF TPN Electrolytes 35-20-5 mEq/20 mL solution 50 ml IV Q1H 360 Days Rx Instructions: On for 18 hours, off for 6 hours prochlorperazine maleate [Compazine] 10 mg tablet 10 mg PO Q6H PRN (Reason: nausea and vomiting) Qty: 60 3RF tramadol 50 mg tablet 50 mg PO Q6H PRN (Reason: pain) Qty: 28 0RF Continued hydroxyzine HCl 25 mg tablet 25 mg PO BID PRN (Reason: anxiety) liothyronine 5 mcg tablet 5 mcg PO QDAY topiramate 100 mg tablet 100 mg PO BID buspirone 10 mg tablet 10 mg PO TID methocarbamol 750 mg tablet 750 mg PO TID metoclopramide HCl 10 mg tablet 10 mg PO AC Linzess 290 mcg capsule 290 mcg PO DAILY albuterol sulfate 90 mcg/actuation HFA aerosol inhaler 2 puff INHALATION Q6H PRN (Reason: shortness of breath or wheezing) levothyroxine 75 mcg tablet 75 mcg PO .ACB escitalopram oxalate 20 mg tablet 20 mg PO DAILY mirtazapine 30 mg tablet 30 mg PO .HS pantoprazole 40 mg tablet,delayed release (DR/EC) 40 mg PO DAILY Print Language: P[place]de[place] Sifter [employer] Instructions: Discharge with [facility]. Phone number is [phone]. Plan for start of care on 06/17/23. [facility] will deliver TPN for at home. Phone number is [phone]. Please contact with any questions, they will contact you to coordinate delivery time. Forms: Portal Instructions Follow Up Appointments: Has appt. 06/17 with her GI surgeon Discharge location: [facility]
--- NOTE | 2023-06-17 08:36 | CM.NOTE ---
Rounds made with Dr. Alas, pt will discharge to home today. Pt is set up with [facility] for IV therapy.
[2023-06-17] MEDS: MULTIVIT INFUSN,ADULT 4,VIT K 10 ML in AA 5 %/CALCIUM/LYTES/DEXT 20 % 1,000 ML 75 ML IV (09:07)
[2023-06-17] MEDS: VALACYCLOVIR HCL 500 MG TABLET 1000 MG PO (09:07)
[2023-06-17] MEDS: ESCITALOPRAM 10 MG TABLET 20 MG PO (09:07)
[2023-06-17] MEDS: TOPIRAMATE 100 MG TABLET PO (09:07)
[2023-06-17] MEDS: LIOTHYRONINE SODIUM 5 MCG TABLET PO (09:07)
[2023-06-17] MEDS: PANTOPRAZOLE SODIUM 40 MG VIAL IV (09:11)
[2023-06-17] MEDS: ACETAMINOPHEN 500 MG TABLET 1000 MG PO (09:26)
[2023-06-17] MEDS: TRAMADOL HCL 50 MG TABLET PO (09:26)
[2023-06-17 10:23] VITALS: O2SAT 100
--- NOTE | 2023-06-17 10:41 | SWNOTE1 ---
MIRYAM called Infusion company and they will re-run insurance and they still need approval from Dr. Alas that he will follow. MIRYAM provided them with Dr. Alas's number.
--- NOTE | 2023-06-17 13:24 | SWNOTE1 ---
MIRYAM spoke to [facility] and they will just need labs from today and they should be set. Case managemnt assisted with getting the labs ordered and also with speaking to pharmacy. MIRYAM also asked Tomasa at [facility] what labs they want ordered and the flush order? She did voice that the [employer] pharmacist/manufacturing leader spoke with Dr. Alas and he provided verbal orders. [facility] will deliver the TPN tonight, they will coordinate with pt. MIRYAM has message out to [facility] in regards to the CRF, waiting to hear back.
[2023-06-17 13:45] LABS: Phosphorus 4.5 mg/dL (2.6-4.7)
--- NOTE | 2023-06-17 15:08 | SWNOTE1 ---
Lab work has been sent to [facility] from today. MIRYAM spoke with Tomasa at [facility] [employer] [facility] and she will check for labs and they can't deliver TPN tonight. Tomasa will stay in contact with pt and [facility] to coordinate delivery. At this time she does not need anything further from MIRYAM. MIRYAM has been emailing back and forth with Jinny at [facility]. She voiced she has been in contact with Tomasa at [facility] and she is just waiting on pharmacy order from [facility]. MIRYAM has faxed over dc summary, CRF, PICC line info and labs to [facility]. Jinny voiced she has received and she will reach out to Tomasa again from [employer] [employer]. At this time Jinny does not need anything further from MIRYAM and they will coordinate with pt on time of start of care for tomorrow. Jinny did state they can't start care until TPN is delivered. MIRYAM notified pt of all the above. Pt has follow up with her GI doctor tomorrow morning. MIRYAM notified nursing that pt is ready for dc at this time.
--- NOTE | 2023-06-17 15:26 | SWNOTE1 ---
Jinny at [facility] has to put her chart on hold until they receive the order from [facility]. If Jinny leaves today she will leave a message for her co-worker to contact Tomasa at [facility] tomorrow morning.
--- NOTE | 2023-06-18 14:47 | CM.DCFOLLOWU ---
/- 1st attempt. No answer
--- NOTE | 2023-06-21 15:44 | CM.DCFOLLOWU ---
Person spoke with: Abbey How are you feeling? A little better How is your pain? Tolerable Did you understand your discharge instructions? Yes Do you have any questions about your discharge instructions? No Were you given any prescriptions at discharge? Yes Were you able to get your prescriptions filled? Yes Do you understand how to take your medications as ordered? Yes Do you have any questions about your follow up appointment and do you plan to keep your follow up appointment? I see Dr. Alas on Wed. Yes will go to appt. Is there anything else that you would like to discuss? Home Health has reached out and TPN was delivered. Pt denies questions Questions/Comments/Concerns/Other:
== END 2023-06-17 16:23 | disposition home or self-care (01) | DRG 394 ==
LOC: ER 16:14 → MS 16:44
PROVIDERS: Physician Assistant; Admitting Provider Family Medicine; Emergency Provider Emergency Medicine; PCP Nurse Practitioner; Visit Provider Family Medicine
DX: K95.89 Other complications of other bariatric procedure (principal); E44.0 Moderate protein-calorie malnutrition; R10.0 Acute abdomen; R10.9 Unspecified abdominal pain; R11.2 Nausea with vomiting, unspecified; E86.0 Dehydration; F41.1 Generalized anxiety disorder; E03.9 Hypothyroidism, unspecified; M54.9 Dorsalgia, unspecified; F32.A Depression, unspecified; D70.9 Neutropenia, unspecified; E87.6 Hypokalemia; D50.9 Iron deficiency anemia, unspecified; I95.1 Orthostatic hypotension; M79.7 Fibromyalgia; J45.909 Unspecified asthma, uncomplicated; Z68.27 Body mass index [BMI] 27.0-27.9, adult; E28.2 Polycystic ovarian syndrome; G47.30 Sleep apnea, unspecified; Z98.84 Bariatric surgery status; Z93.1 Gastrostomy status; Z79.899 Other long term (current) 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; Z87.442 Personal history of urinary calculi; Z90.710 Acquired absence of both cervix and uterus; Z79.890 Hormone replacement therapy; Z98.890 Other specified postprocedural states; Z90.49 Acquired absence of other specified parts of digestive tract; Z86.16 Personal history of COVID-19; Y83.9 Surgical procedure, unspecified as the cause of abnormal reaction of the patient, or of later complication, without mention of misadventure at the time of the procedure
CPT/HCPCS: 36415; 36569; 36592; 74177; 80053; 81003; 82948; 83605; 83690; 83735; 84100; 85025; 94761; 96361; 96365; 96366; 96367; 96368; 96375; 96376; 97161; 97165; 99285; C1887; G0328; J1170; Q9967

== ENCOUNTER 2023-06-20 10:13 | Emergency (ER) | payer OTHER, SELFPAY ==
[2023-06-20] VITALS (20 sets, daily range): BP systolic 100–156; BP diastolic 71–99; PULSE 71–81; TEMP 36.7; O2SAT 100; BMI 27.1
--- OUTSIDE RECORDS SUMMARY | 2023-06-20 10:30 | XMS_ITS | CCD ---
Author Organization [facility] Care Team Providers Care Therapeutic Mentor Name Role Phone PHYSICIAN, DEFAULT Unavailable Unavailable PHYSICIAN, DEFAULT Unavailable Unavailable Slade, Shanna Primary Care Provider Unavail able Slade SENIOR PUBLICATIONS SPECIALIST, Shanna Primary Care Provider Mona vailable Slade BRANCH SERVICE ASSOCIATE - TRUCK CAR AND BUS CLEANER, Shanna Primary Care Provid er LUCIE MORA Attending Unavailable SLADE, SHANNA Primary Care Unavailable SLADE, SHANNA Referring Unavailable LUCIE MORA Attending Unavailable SLADE, SHANNA Primary Care Unavailable SELF, SELF Referring Unavailable Antelmo Davey Unavailable Deacon Kat MD Unavailable Slade BETH, Shanna Unavailable [phone] Slade CAMPOS, Shanna Primary Care Provider Antelmo Davey MD Unavailable Wally Foley Primary Care Provider Slade, Shanna Unavailable Wally Foley Primary Care Provider [phone] Antelmo Davey MD Unavailable Deacon Kat MD Unavailable Slade BETH, Shanna Unavailable Slade CAMPOS, Shanna Primary Care Provider Antelmo Davey MD Unavailable Deacon Kat MD Unavailable Slade BETH, Shanna Unavailable Slade CAMPOS, Shanna Primary Care Provider [phone] Slade CAMPOS, Shanna Unavailable Slade APPLICATION SECURITY ARCHITECT, Shanna Primary Care Provider Antelmo Davey MD Unavailable Deacon Kat MD Unavailable [phone] Slade APPLICATION SECURITY ARCHITECT, Shanna Unavailable Slade APPLICATION SECURITY ARCHITECT, Shanna Primary Care Provider Wally Foley MD Primary Care Provider [phone] Jaquan Morrow Primary Care Physician [phone] Agustin Valentino Unavailable Jaquan Morrow Primary Care Provider [phone] FOLEY ., DR WALLY Graf Primary Care [...] Unavailable ZURDO ., DR BURCH Admitting Unavailable REDBY, DR BALDOMERO Campos Consulting Unavailable ZURDO ., [...] Consulting Unavailable DAREK ., BRUNA Consulting Unavailable JOSE ., DR WALLY Graf Primary Care Unavailable ZURDO ., DR BURCH Referring Unavailable GIEDRAITIS, ANDRIUS Attending Unavailable GIEDRAITIS, ANDRIUS Admitting Unavailable Agustin Valentino Unavailable Agustin Bautista Unavailable [phone] Wally Foley Primary Care Provider WALLY FOLEY Primary Care Unavailable EMMY WATSON [id number] Attending Unavailable WALLY FOLEY Primary Care Unavailable JD RAINEY Attending Unavailable WALLY FOLEY Primary Care Unavailable Slade SENIOR PUBLICATIONS SPECIALIST, Shanna Primary Care Provider Mona vailable DIMITRI WALKER Attending Unavailable SLADE, SHANNA Primary Care Unavailable Giedraitis , Michelle Henning Attending Unavailable CRISTHIAN, JAQUAN Primary Care Unavailable CRISTHIAN, JAQUAN Primary Care Unavailable RODRIGUEZ Attending Unavailable CAMDEN GOODRICH Admitting Unavailable CRISTHIAN, JAQUAN Primary Care Unavailable BRUNO WHEAT Consulting Unavailable CORIE HENDRICKSON Attending Unavailable Cristhian BRANCH SERVICE ASSOCIATE.Jaquan CAMPOS Primary Care Provider [phone] JAQUAN MORROW L Primary Care Unavailable VIC RAMOS Attending Unavailable VIC RAMOS Admitting Unavailable Cristhian, TRUCK CAR AND BUS CLEANER-C Jaquan Ortega Primary Care Provider [phone] DO Claus Obrien Emergency Provider GENERIC PROVIDER, NO ASSIGNED PCP Primary Care Unavailable Generic Provider , No Assigned Pcp Primary Car e Provider Unavailable Generic Provider , No Assigned Pcp Primary Car e Provider Unavailable Bullimore, SENIOR PUBLICATIONS SPECIALIST-BC Trace E Emergency Provider Generic Provider , No Assigned Pcp Primary Car e Provider Unavailable PARK, WOOSUP M Attending Unavailable GENERIC PROVIDER, NO ASSIGNED PCP Primary Care Unavailable FENOFF, XIOMARA N Attending Unavailable PARK, WOOSUP M Referring Unavailable GENERIC PROVIDER, NO ASSIGNED PCP Primary Care Unavailable PARK, WOOSUP M Attending Unavailable GENERIC PROVIDER, NO ASSIGNED PCP Primary Care Unavailable FENOFF, XIOMARA N Referring Unavailable GENERIC PROVIDER, NO ASSIGNED PCP Primary Care Unavailable PARK, WOOSUP M Admitting Unavailable DOLORES COX Attending UnavailJIN Venegas Consulting Unavailable SOTO, MIGUEL ANGEL Primary Care Unavailable GENERIC PROVIDER, NO ASSIGNED PCP Primary Care Unavailable SOTO, MIGUEL ANGEL Primary Care Unavailable EVE AGOSTO Consulting Unavailable PARK, WOOSUP M Admitting Unavailable PARK, WOOSUP M Attending Unavailable PARK, WOOSUP M Consulting Unavailable BECKY ROMERO Consulting Unavailable KURT MATOS Consulting Unavailable PARK, WOOSUP M Attending Unavailable PARK, WOOSUP M Attending Unavailable GENERIC PROVIDER, NO ASSIGNED PCP Primary Care Unavailable Cristhian, TRUCK CAR AND BUS CLEANER-C Jaquan Ortega Primary Care Provider Beverley [facility] Trace Graf Emergency Provider SLIM Parker Emergency Provider [phone] GENERIC PROVIDER, NO ASSIGNED PCP Primary Care Unavailable Cristhian BRANCH SERVICE ASSOCIATE.BETH, Jaquan L Primary Care Provider CORIE MEDEL Attending Unavailable CRISTHIAN, JAQUAN L Primary Care Unavailable CRISTHIAN, JAQUAN L Primary Care Unavailable JACOBO LYNCH Admitting Unavailable RAYNA BILLINGSLEY Attending Unavailable CHEYENNE FARNSWORTH Consulting Unavailable CRISTHIAN, JAQUAN L Primary Care Unavailable CRISELDA NO Admitting Unavailable LUCY, MAIDANA Attending Unavailable CHETNA NESS Consulting Unavailable DEACON KAT Referring Unavailable CRISTHIAN, JAQUAN L Primary Care Unavailable KEESHA MOSS Attending Unavailable JACKSON ANDERSON Referring Unavailab le CRISTHIAN, JAQUAN L Primary Care Unavailable CRISTHIAN, JAQUAN L Primary Care Unavailable TSEVE GALO Admitting Unavailable MARIA TERESA MURILLO Attending Unavailable ALBERT HUBBARD Consulting Unavailable CRISTHIAN, JAQUAN L Primary Care Unavailable RASHMI BARRON Admitting Unavailable STEVE GALO Attending Unavailable ELISA VIVEROS Consulting Unavailable PABLO LEBRON Attending Unavailable CRISTHIAN, JAQUAN L Primary Care Unavailable PABLO LEBRON Attending Unavailable PABLO LEBRON Referring Unavailable CRISTHIAN, JAQUAN L Primary Care Unavailable PABLO LEBRON Attending Unavailable CRISTHIAN, JAQUAN L Primary Care Unavailable PABLO LEBRON Attending Unavailable PABLO LEBRON Referring Unavailable CRISTHIAN, JAQUAN L Primary Care Unavailable Cristhian, Jaquan Shannon Primary Care Unavailable Keister, Claus A Admitting Unavailable Keister Claus A Attending Unavailable Cristhian, Jaquan Shannon Primary Care Unavailable Bullimore, Trace E Admitting Unavailable Bullimore, Trace E Attending Unavailable Gabino Parker Attending Unavailable Cristhian, Jaquan Shannon Primary Care Unavailable Gabino Parker Admitting Unavailable THACKERRYLEE Referring Unavailable THACKERRYLEE Attending Unavailable CRISTHIAN, JAQUAN L Primary Care Unavailable JARREDBREANNA Referring Unavailable CRISTHIAN, JAQUAN L Primary Care Unavailable CRISTHIAN, JAQUAN L Primary Care Unavailable CRISTHIAN, JAQUAN L Primary Care Unavailable DEACON KAT Attending Unavailable DEACON KAT Referring Unavailable CRISTHIAN, JAQUAN L Primary Care Unavailable AGUSTIN ZAMORANO Attending Unavailable CRISTHIAN, JAQUAN L Primary Care Unavailable DEACON KAT Attending Unavailable CRISTHIAN, JAQUAN L Primary Care Unavailable CRISTHIAN, JAQUAN L Primary Care Unavailable SERENA BREEN Attending Unavailable XIOMARA MARTINEZ Attending Unavailable CRISTHIAN, JAQUAN L Primary Care Unavailable WALLY FOLEY Referring Unavailable JARREDBREANNA LESLIE Attending Unavailable CRISTHIAN, JAQUAN L Primary Care Unavailable THACKERRYLEE Ahumada Referring Unavailable THACKERRYLEE Attending Unavailable CRISTHIAN, JAQUAN L Primary Care Unavailable VIC RAMOS Attending Unavailable CRISTHIAN, JAQUAN L Primary Care Unavailable CRISTHIAN, JAQUAN L Primary Care Unavailable DEACON KAT Attending Unavailable CRISTHIAN, JAQUAN L Primary Care Unavailable KASIE AVALOS Attending Unavailable ROMIE HAIRSTON Admitting Unavailable SHANNA WOODS Attending Unavailable CRISTHIAN, JAQUAN L Primary Care Unavailable MARCEL HARRY Admitting Unavailable CRISTHIAN, JAQUAN L Primary Care Unavailable ELIAS MUNOZ Attending Mona vailable KASIE AVALOS Attending Unavailable CRISTHIAN, JAQUAN L Primary Care Unavailable SELF Referring Unavailable DEACON KAT Attending Unavailable CRISTHIAN, JAQUAN L Primary Care Unavailable WICKENHEISER, BERNARDO JULIAN Attending Unava ilable CRISTHIAN, JAQUAN L Primary Care Unavailable RYLEE THACKER Attending Unavailable CRISTHIAN, JAQUAN L Primary Care Unavailable CRISTHIAN, JAQUAN L Primary Care Unavailable VIC RAMOS Attending Unavailable MARICRUZ GARCIA Attending Unavailable CRISTHIAN, JAQUAN L Primary Care Unavailable TAMMY, ELIAS CROSS Referring Mona vailable CIARA BELLO Attending Unavailable CRISTHIAN, JAQUAN L Primary Care Unavailable BREANNA STERN Attending Unavailable DEACON KAT Referring Unavailable CRISTHIAN, JAQUAN L Primary Care Unavailable Cristhian, SENIOR PUBLICATIONS SPECIALIST Jaquan L Attending Unavailable Cristhian, SENIOR PUBLICATIONS SPECIALIST Jaquan L Attending Unavailable Cristhian, SENIOR PUBLICATIONS SPECIALIST Jaquan L Attending Unavailable Rajni Rouse Attending Unavailable Cristhian, SENIOR PUBLICATIONS SPECIALIST Jaquan L Referring Unavailable GABRIELLA GATICA Attending Unavailab Rajni Hernandez Attending Unavailable Earnest Jett Attending Unavailable Cristhian, SENIOR PUBLICATIONS SPECIALIST Jaquan L Attending Unavailable Cristhian, SENIOR PUBLICATIONS SPECIALIST Jaquan L Attending Unavailable Cristhian, SENIOR PUBLICATIONS SPECIALIST Jaquan L Attending Unavailable Cristhian, SENIOR PUBLICATIONS SPECIALIST Jaquan L Attending Unavailable Lokesh Terry Attending Unavailable Cristhian, SENIOR PUBLICATIONS SPECIALIST Jaquan L Attending Unavailable Cristhian, SENIOR PUBLICATIONS SPECIALIST Jaquan L Attending Unavailable Cristhian, SENIOR PUBLICATIONS SPECIALIST Jaquan L Attending Unavailable Cristhian, SENIOR PUBLICATIONS SPECIALIST Jaquan L Attending Unavailable Cristhian, SENIOR PUBLICATIONS SPECIALIST Jaquan L Attending Unavailable Cristhian, SENIOR PUBLICATIONS SPECIALIST Jaquan L Attending Unavailable Cristhian, SENIOR PUBLICATIONS SPECIALIST Jaquan L Attending Unavailable Cristhian, SENIOR PUBLICATIONS SPECIALIST Jaquan L Attending Unavailable Cristhian, SENIOR PUBLICATIONS SPECIALIST Jaquan L Attending Unavailable Earnest Jett Attending Unavailable Cristhian, SENIOR PUBLICATIONS SPECIALIST Jaquan L Admitting Unavailable Cristhian, SENIOR PUBLICATIONS SPECIALIST Jaquan L Admitting Unavailable Cristhian, SENIOR PUBLICATIONS SPECIALIST Jaquan L Admitting Unavailable Cristhian, SENIOR PUBLICATIONS SPECIALIST Jaquan L Admitting Unavailable Cristhian, SENIOR PUBLICATIONS SPECIALIST Jaquan L Admitting Unavailable Earnest Jett Attending Unavailable Mateusz Garcia Attending Unavailable Earnest Jett Attending Unavailable Ashutosh Albright Attending Unavailable Cristhian, SENIOR PUBLICATIONS SPECIALIST Jaquan L Attending Unavailable Cristhian, SENIOR PUBLICATIONS SPECIALIST Jaquan L Admitting Unavailable Cristhian, SENIOR PUBLICATIONS SPECIALIST Jaquan L Attending Unavailable Cristhian, SENIOR PUBLICATIONS SPECIALIST Jaquan L Admitting Unavailable Jon Rivera Consulting UnavailMoncho Ma Attending Unavailable Moncho Trejo Admitting Unavailable Sarmini, Webb Talal Consulting Unavaila ble Sarmini, Webb Talal Consulting Unavaila ble Sarmini, Webb Talal Consulting Unavaila ble Adamowicz, Gabino Consulting Unavailable Adamowicz, Gabino Consulting Unavailable Adamowicz, Gabino Consulting Unavailable Adamowicz, Gabino Consulting Unavailable Adamowicz, Gabino Consulting Unavailable Adamowicz, Gabino Consulting Unavailable Adamowicz, Gabino Consulting Unavailable Adamowicz, Gabino Consulting Unavailable Adamowicz, Gabino Consulting Unavailable Mateusz Garcia Attending Unavailable Mateusz Garcia Attending Unavailable Mateusz Garcia Attending Unavailable Ashutosh Albright Attending Unavailable Cristhian, VAHID Johnson Attending Unavailable Cristhian, SENIOR PUBLICATIONS SPECIALIST Jaquan Johnson Attending Unavailable Cristhian, SENIOR PUBLICATIONS SPECIALIST Jaquan Johnson Attending Unavailable SERENA HAMM Attending Unavailabl e CRISTHIANJAQUAN VALENCIA Primary Care Unavailable DEACON KAT Admitting Unavailable CRISTHIAN, JAQUAN L Primary Care Unavailable GUTDEACON MARCANO Referring Unavailable GUTNICKDEACON Attending Unavailable GUTKRYS DEACON R Admitting Unavailable NAFFOUJE, SAMER A Consulting Unavailable CRISTHIAN, JAQUAN L Primary Care Unavailable DEACON KAT Attending Unavailable CRISTHIAN, JAQUAN L Primary Care Unavailable TIFFANIE CATES Attending Unavailabl PETE Colunga Referring Unavailable CRISTHIAN, JAQUAN L Primary Care Unavailable CRISTHIAN, JAQUAN L Primary Care Unavailable GUTRADHA MARCANOE R Referring Unavailable CRISTHIAN, JAQUAN L Primary Care Unavailable DEACON KAT Attending Unavailable CRISTHIAN, JAQUAN L Primary Care Unavailable GUTKRYS DEACON R Admitting Unavailable Allergies Allergy Classification Reported Allergen(s) Allergy Type Date of Onset Reaction(s) Facility (5 sources) Codeine And Related Propensity to adverse reactions to drug 07-08-19 14 Other (See Comments), Nausea And Vomiting [facility] (20 sources) Codeine; Translations: [codeine] Drug Allergy 10-04-19 20 GI Upset, Nausea/vomitin g [facility] (3 sources) Propofol Drug Allergy 06-19-19 22 Other: See Comments [facility] (20 sources) Adhesive Tape-Silicones; Translations: [ADHESIVE TAPE-SILICONES] Drug Intolerance 02-07-20 20 Intolerance [facility] (2 sources) Morphine And Related Propensity to adverse reactions to drug 07-08-19 14 Other (See Comments), Nausea And Vomiting [facility] [employer] (7 sources) Codeine Drug Allergy vomiting [facility] [employer] Other (4 sources) Acetaminophen / oxyCODONE Drug Allergy anaphylaxis [facility] [employer] Other (20 sources) Non-steroidal anti-inflammator y agent; Translations: [NSAIDS (NON-STEROIDAL ANTI-INFLAMMATOR Y DRUG)] Propensity to adverse reactions to drug 01-30-20 22 Contraindicati on-Medical Surgical, Nausea/vomitin g [facility] Work Phone: (1 source) Codeine Drug Allergy 07-08-19 14 [facility] (1 source) Anastia Drug allergy (disorder) [facility] (14 sources) Non-steroidal anti-inflammator y agent; Translations: [NSAIDs] Drug allergy Unknown (qualifier value) [facility] (2 sources) Acetaminophen; Translations: [acetaminophen] Drug Allergy 04-06-19 anaphylaxis [facility] (3 sources) oxyCODONE; Translations: [oxycodone] Drug Allergy 04-06-19 anaphylaxis [facility] (1 source) Codeine Drug Allergy 05-30-19 24 [facility] Rep[facility] Medications Current Medications Medication Drug Class(es) Dates Sig (Normalized) Sig (Original) minipill Birthcontrol (2 sources) Start: 03-07-2018 minipill Birthcontrol minipill Birthcontrol, Daily Start Date: 03/07/18 Status: Ordered acetaminophen 325 mg oral tablet (20 sources) Start: 06-09-2023 End: 09-07-2023 take 2 tablets by mouth every four hours as needed acetaminophen (TYLENOL) 325 mg tablet Take 2 tablets by mouth every 4 hours as needed for pain. 120 tablet 1 06/09/2023 09/07/2023 Active Start: 03-16-2023 take 1 tablet by robinson th every four hours as needed acetaminophen (Tylenol) tablet 650 mg Start: 03-10-2023 take 2 tablets by mo uth every four hours for pain acetaminophen (Tylenol) 325 mg tablet Indications: Median arcuate ligament syndrome (CMS/HCC) Take 2 tablets (650 mg) by mouth every 4 hours if needed for mild pain (1 - 3). 0 03/10/2023 Active Start: 03-05-2023 take 1 tablet by robinson th every four hours as needed acetaminophen (Tylenol) tablet 650 mg Start: 06-23-2022 End: 06-09-2023 take 2 tablets by mouth every six hours as needed acetaminophen (TYLENOL) 500 mg tablet Take 2 tablets by mouth every 6 hours as needed for pain or fever (specify). 0 06/23/2022 06/09/2023 Discontinued Start: 01-30-2022 End: 02-06-2022 take 2 tablets [...] to 7 days. Take 2 tablets by mo uth every 6 hours as needed for pain or fever (specify). acetaminophen 300 mg / codeine phosphate 15 mg oral tablet (5 sources) Opioid Agonist Start: 05-05-2022 acetaminophen-codein e 300 mg-15 mg oral tablet 1 tab(s), Oral, BID, 30 tab(s), Refill(s) 0, [facility]/pharmacy #[id number], 167.2, cm, 05/05/22 13:30:00 EDT, Height/Length Dosing, 84.5, kg, 05/05/22 13:30:00 EDT, Weight Dosing Start Date: 05/05/22 Status: Ordered Start: 2021 take 1 tablet by robinson th every six hours Acetaminophen-Codeine #3 300-30 MG 1 tablet as needed Orally every 6 hrs for 4 days Mar, Active acetaminophen 325 mg / HYDROcodone bitartrate 5 mg oral tablet (9 sources) Opioid Agonist Start: 07-02-2020 hydroCODone-ac etaminophen [...] 1 TAB PO EVERY 4-6 HOURS 12 April 10, 2020 February 13, 2023 2:59pm Start: 01-30-2020 End: 07-02-2020 take 1 tablet by mouth every four hours as needed hydroCODone-acetaminophen 5-325 MG table t Indications: Complex ovarian cyst , Uterine leiomyoma, unspecified location Take 1 tablet by mouth every 4 hours as needed for up to 4 days. 12 tablet 0 07/02/2020 07/02/2020 Discontinued (Reorder) acyclovir 400 mg oral tablet (2 sources) Herpesvirus Nucleoside Analog DNA Polymerase Inhibitor, Herpes Simplex Virus Nucleoside Analog DNA Polymerase Inhibitor, Herpes Zoster Virus Nucleoside Analog DNA Polymerase Inhibitor Start: 06-17-2022 End: 07-01-2022 take 1 tablet by mouth twice daily acyclovir 400 mg Tab 400 mg = 1 tab(s), Oral, BID, X 14 day(s), # 28 tab(s), Refills(s) 0, Pharmacy: [facility]/pharmacy #[id number], 168, cm, 06/17/22 10:54:00 EDT, Height/Length [...] above: Take 1 tablet by robinson th five times daily for 7 days. albuterol 0.83 mg/ml inhalation solution (20 sources) beta2-Adrenergic Agonist Start: 03-16-2023 take 2.5 mg by inhalation every four hours as needed 2.5 mg, nebulization, Every 4 hours PRN, wheezing, shortness of breath, Starting on Wed03/16/23 at 1504 [employer] for inhaler order Start: 03-07-2023 albuterol 2.5 mg /3 mL (0.083 %) nebulizer solution 3 mL Start: 02-13-2023 take 1 puff(s) by in halation every six hours Albuterol Sulfate Active 2 PUFF INHALATION Q6H February 13, 2023 1:00am Start: 03-31-2021 take 2 puff(s) by in [...] Albuterol (Eqv-Ventolin HFA) 90 mcg/inh inhalation aerosol (9 sources) Start: take 2 puff(s) by inhalation every six hours Albuterol (Eqv-Ventolin HFA) 90 mcg/inh inhalation aerosol 2 puff(s), Inhalation, q6hr, 18 gm, Refill(s) 0, [facility]/pharmacy #[id number], 168, cm, 12/29/22 15:01:00 EST, Height/Length [...] above: Take 1 tablet by robinson th daily at bedtime. azithromycin 250 mg oral tablet (1 source) Macrolide Antimicrobial Start: End: azithromycin 250 mg Tab = 1 packet(s), Oral, As Directed, as directed on package labeling, X 5 day(s), # 6 tab(s), Refills(s) 0, Pharmacy: [facility]/pharmacy #[id number], 168, cm, 12/29/22 15:01:00 EST, Height/Length [...] on above: Take 2 tablets by mo [facility] three times a day as needed for [...] day(s), # 21 cap(s), Refills(s) 0, Pharmacy: [facility]/pharmacy #[id number], 168, cm, 12/29/22 15:01:00 EST, Height/Length [...] directed for 30 day(s) Active busPIRone hydrochloride 10 mg oral tablet (20 sources) Start: End: take 1 tablet by mouth three times daily busPIRone (BUSPAR) 10 mg tablet Indications: Generalized anxiety disorder Take 1 tablet by mouth three times a day. 270 tablet 1 06/09/2023 12/06/2023 Active Start: 06-03-2023 End: 06-09-2023 take 1 tablet by mouth twice daily busPIRone (BUSPAR) 10 mg tablet Indications: Generalized anxiety disorder Take 1 tablet by mouth two times a day. 180 tablet 1 06/03/2023 06/09/2023 Discontinued Start: 02-13-2023 take 1 tablet by robinson twice daily Buspirone (Buspar) 15 mg Tablet Active 15 MG PO Twice daily February 13, 2023 1:00am Start: 11-03-2022 End: 05-09-2023 take 1 tablet by mouth twice daily busPIRone 10 mg Tab 10 mg = 1 tab(s), Oral, BID, Refills(s) 0 Start Date: 11/03/22 Status: Ordered Start: 10-29-2022 busPIRone (BUS PAR) 10 mg [...] day(s), # 20 tab(s), Refills(s) 0, Pharmacy: [facility]/pharmacy #[id number], 168, cm, 06/17/22 10:54:00 EDT, Height/Length [...] tablet 0 10/31/2022 11/07/2022 Active dicyclomine hydrochloride 20 mg oral tablet (16 sources) Anticholinergic Start: 05-06-2023 End: 05-13-2023 take 1 tablet by mouth four times daily dicyclomine 20 mg Tab 20 mg = 1 tab(s), Oral, QID, X 7 day(s), # 28 tab(s), Refills(s) 0, [id number], cm, 05/06/23 15:49:00 EDT, Height/Length Dosing, 82.7, kg, 05/06/23 15:49:00 EDT, Weight Dosing Start Date: 05/06/23 Stop Date: 05/13/23 Status: Ordered Start: 04-02-2023 take 2 capsules by m outh four times daily Bentyl 10 mg Cap 20 mg = 2 cap(s), Oral, QID, # 20 cap(s), Refills(s) 0, [id number] 167, cm, 04/02/23 11:01:00 EST, Height/Length Dosing, 82.7, kg, 04/02/23 11:01:00 EST, Weight Dosing Start Date: 04/02/23 Status: Ordered Start: 06-05-2022 End: 06-15-2022 take 1 capsule by mouth four times daily Bentyl 10 mg Cap 10 mg = 1 cap(s), Oral, QID, X 10 day(s), # 40 cap(s), Refills(s) 0, [id number] 167.2, cm, 05/05/22 13:30:00 EDT, Height/Length Dosing, 84.5, kg, 05/05/22 13:30:00 EDT, Weight Dosing Start Date: 06/05/22 Stop Date: 06/15/22 Status: Ordered Start: 12-20-2020 take 2 capsules by m outh four times daily Bentyl 10 mg Cap 20 mg = 2 cap(s), Oral, QID, # 20 cap(s), Refills(s) 0, Pharmacy: [facility]/pharmacy #[id number], 167, cm, 12/20/20 9:30:00 EDT, Height/Length Dosing, 90, kg, 12/20/20 9:30:00 EDT, Weight Dosing Start Date: 12/20/20 Status: Ordered Start: 07-02-2020 End: 07-02-2020 dicyclomine (BENTYL) injecti on 20 mg diphenhydrAMINE hydrochloride 20 mg/ml / zinc acetate 1 mg/ml topical cream (1 source) Histamine-1 Receptor Antagonist Start: 03-08-2023 diphenhydramine-zinc acetate cream docusate sodium 100 mg oral capsule (20 sources) Start: 06-09-2023 take 1 capsule by mouth every twelve hours as needed docusate sodium (COLACE) 100 mg capsule Take 1 capsule by mouth two times a day as needed for constipation. 0 06/09/2023 Active Start: 06-23-2022 End: 06-09-2023 take 1 capsule by mouth three times daily for diarrhea docusate sodium (COLACE) 100 mg capsule Take 1 capsule by mouth three times daily. decrease the dose or stop for diarrhea 90 capsule 0 06/23/2022 06/09/2023 Discontinued Comment on above: Take 1 capsule by mo uth three times daily. decrease the dose or stop for diarrhea doxycycline hyclate 100 mg oral capsule (9 sources) Tetracycline-class Drug Start: 05-29-2022 take 1 capsule by mouth twice daily doxycycline hyclate 100 mg Cap 100 mg = 1 cap(s), Oral, BID, # 20 cap(s), Refills(s) 0, Pharmacy: [facility]/pharmacy #[id number], 167.2, cm, 05/05/22 13:30:00 EDT, Height/Length Dosing, 84.5, kg, 05/05/22 13:30:00 EDT, Weight Dosing Start Date: 05/29/22 Status: Ordered Start: 03-31-2021 take 1 capsule by mo uth every twelve hours Doxycycline Monohydrate 100 MG 1 capsule Orally every 12 hrs for 7 days Mar, Active DULoxetine 60 mg oral capsule (15 sources) Serotonin and Norepinephrine Reuptake Inhibitor Start: 01-16-2021 take 60 mg by mouth twice daily Cymbalta 60 mg, Oral, BID, Refills(s) 0 Start Date: 01/16/21 Status: Ordered Start: 10-14-2019 take 1 capsule by mo uth every twelve hours DULoxetine HCl 60 MG 1 capsule Orally Twice a day for 90 days Sep, Active take 1 capsule by mo [facility] twice daily DULoxetine (CYMBALTA) 30 MG extended release capsule Take 30 mg by mouth 2 times daily 0 Active End: 06-02-2021 DULoxetine (Cymbalta) [address] Particles capsule DR 2 capsules 0 06/02/2021 Discontinued (Therapy completed) 0.4 ml enoxaparin sodium 100 mg/ml prefilled syringe (1 source) Low Molecular Weight Heparin Start: 03-06-2023 enoxaparin (Lovenox) syringe 40 mg escitalopram 20 mg oral tablet (20 sources) Serotonin Reuptake Inhibitor Start: 09-16-2022 End: 04-11-2023 escitalopram oxalate (LEXAPRO) 20 mg tablet Indications: Generalized anxiety disorder , Major depressive disorder, recurrent episode, moderate (HCC) take 1 tablet daily 90 tablet 1 04/06/2023 Active Start: 05-05-2022 End: 09-12-2022 take 1 [...] Start: 12-17-2021 take 1 tablet by robinson once daily escitalopram oxalate (LEXAPRO) 10 mg [...] Start: 09-09-2021 take 1 tablet by robinson once daily escitalopram oxalate (LEXAPRO) 10 mg [...] 1 TABLET BY ROBINSON TH EVERY DAY take 1 tablet daily Etonogestrel (7 sources) Progestin Nexplanon Active famotidine 20 mg oral tablet (20 sources) Histamine-2 Receptor Antagonist Start: 03-10-2023 take 1 tablet by mouth twice daily famotidine (Pepcid) 20 mg tablet Indications: Median arcuate ligament syndrome (CMS/HCC) Take 1 tablet (20 mg) by mouth 2 times a day. 60 tablet 0 03/10/2023 Active Start: 03-05-2023 famotidine (Pe pcid) tablet 20 mg Start: 04-02-2021 End: 03-10-2023 take 1 tablet by mouth once daily famotidine (Pepcid) 40 mg tablet Take 1 tablet (40 mg) by mouth once daily. 0 02/03/2022 03/10/2023 Discontinued (Stop Taking at Discharge) Comment on above: Take 1 tablet by robinson th once daily. ferrous sulfate 325 mg oral tablet (6 sources) Start: 03-06-2023 take 1 tablet by mouth once daily at breakfast 1 tablet, oral, Daily with breakfast, First dose on Wed03/17/23 at 0800 Fluticasone-Salmeter ol 100-50 MCG/DOSE (2 sources) Start: 03-31-2021 take 1 puff(s) by inhalation twice daily Fluticasone-Salmete rol 100-50 MCG/DOSE 1 puff Inhalation Twice a day for 30 day(s) Mar, Active gabapentin 100 mg oral capsule (20 sources) Anti-epileptic Agent Start: 01-08-2023 End: 01-05-2024 take 1 [...] Start: 01-20-2021 take 1 capsule by mo uth once daily, then take 1 capsule by mouth twice daily, then take 1 capsule by mouth three times daily gabapentin 300 mg Cap See Instructions, 1 cap(s) Oral daily x 1 day, 1 tab BID x 1 day, then 1 tab TID thereafter., # 90 cap(s), Refills(s) 0, Pharmacy: [facility]/pharmacy #[id number], 167, cm, 01/16/21 13:32:00 EST, Height/Length Dosing, 91.9, kg, 01/16/21 13:32:00 EST, Weight Dosing Start Date: 01/20/21 Status: Ordered Gabapentin Activ e Comment on above: take 1 tab PO BID x 7 days, then increase to 2 tabs PO BID x 7 days, then increase to 2 tabs PO TID if tolerated. glucagon (rdna) 1 mg injection (1 source) Antihypoglycemic Agent Start: 03-05-2023 glucagon (Glucagen) injection 1 mg 1000 ml glucose 100 mg/ml injection (2 sources) Start: 03-05-2023 dextrose 50 % injection 25 g Start: 03-05-2023 dextrose 10 % in water (D10W) infusion 1 ml heparin sodium, porcine 5000 unt/ml injection (1 source) Unfractionated Heparin, Anti-coagulant Start: 03-16-2023 heparin (porcine) injection 5,000 Units 0.5 ml HYDROmorphone hydrochloride 1 mg/ml prefilled syringe (2 sources) Opioid Agonist Start: 03-05-2023 End: 03-08-2023 take 0.5 mg intravenously every four hours as needed HYDROmorphone (Dilaudid) injection 0.5 mg hydrOXYzine hydrochloride 25 mg oral tablet (20 sources) Antihistamine Start: 06-03-2023 End: 09-01-2023 take 1 tablet by mouth twice daily as needed for anxiety hydrOXYzine HCl (ATARAX) 25 mg tablet Indications: Generalized anxiety disorder Take 1 tablet by mouth two times a day as needed for anxiety. 60 tablet 2 06/03/2023 09/01/2023 Active Start: 11-13-2022 take 1 tablet by robinson th every twenty-four hours as needed hydrOXYzine HCL (Atarax) 25 mg tablet Take 1 tablet (25 mg) by mouth once daily as needed for anxiety. 0 11/13/2022 Active Start: 09-15-2022 End: 12-08-2022 take 1 tablet by mouth twice daily [...] TWICE A DAY NEEDED FOR ANXIETY /INSOMNIA insulin lispro 100 unt/ml injectable solution (1 source) Insulin Analog Start: 03-05-19 insulin lispro (HumaLOG) injection 0-5 Units Ketamine (6 sources) General Anesthetic Start: 06-01-19 End: 05-25-19 ketamine 5% nasal spray solution (CPD) Indications: Gastroesophageal reflux disease without esophagitis , Neuralgia and neuritis , Median arcuate ligament syndrome (HCC) 0.1 mL/spray. Use as directed. 1 spray by nose twice per day x 3 days, then increase to 2 sprays by nose twice per day if tolerated. Added volume to account for dispenser loss. Physician office visit required for refill. 12 mL 0 06/01/2023 05/24/2024 Active Comment on above: 0.1 mL/spray. Use as directed. 1 spray by nose twice per day x 3 days, then increase to 2 sprays by nose twice per day if tolerated. Added volume to account for dispenser loss. Physician office visit required for refill. levothyroxine sodium 0.075 mg oral tablet (20 sources) l-Thyroxine Start: 06-09-19 End: 09-07-19 take 1 tablet by mouth once daily levothyroxine (SYNTHROID) 75 mcg tablet Indications: Hypothyroidism, unspecified type Take 1 tablet by mouth once daily. 90 tablet 0 06/09/2023 09/07/2023 Active Start: 05-03-2023 take 1 tablet by robinson th once daily levothyroxine 75 mcg (0.075 mg) Tab 75 mcg = 1 tab(s), Oral, Daily, # 60 tab(s), Refills(s) 1, Pharmacy: [facility]/pharmacy #[id number], 167, cm, 04/02/23 11:01:00 EST, Height/Length Dosing, 82.7, kg, 04/02/23 11:01:00 EST, Weight Dosing Start Date: 05/03/23 Status: Ordered Start: 03-03-2023 take 1 tablet by robinson th once daily levothyroxine 100 mcg (0.1 mg) Tab 100 mcg = 1 tab(s), Oral, Daily, # 90 tab(s), Refills(s) 0, Pharmacy: [facility], 168, cm, 02/03/23 14:52:00 EST, Height/Length Dosing, 85.5, kg, 02/03/23 14:52:00 EST, Weight Dosing Start Date: 03/03/23 Status: Ordered Start: 10-05-2022 take 1 tablet by robinson th once daily levothyroxine 100 mcg (0.1 mg) Tab 100 mcg = 1 tab(s), Oral, Daily, # 30 tab(s), Refills(s) 1, [id number], cm, 07/29/22 8:44:00 EDT, Height/Length Dosing, 81, kg, 07/29/22 8:44:00 EDT, Weight Dosing Start Date: 10/05/22 Status: Ordered Start: 07-22-2022 take 1 tablet by robinson th once daily levothyroxine 125 mcg (0.125 mg) Tab See Instructions, TAKE 1 TABLET BY MOUTH EVERY DAY, # 30 tab(s), Refills(s) 2, Pharmacy: [id number], 168, cm, 07/20/22 10:48:00 EDT, Height/Length Dosing, 81.1, kg, 07/20/22 10:48:00 EDT, Weight Dosing Start Date: 07/22/22 Status: Ordered Start: 04-23-2022 take 1 tablet by robinson th once daily levothyroxine 125 mcg (0.125 mg) Tab 125 mcg = 1 tab(s), Oral, Daily, # 90 tab(s), Refills(s) 0, [id number] 167.6, cm, 04/15/21 22:31:00 EST, Height/Length Dosing, 93.2, kg, 04/15/21 22:31:00 EST, Weight Dosing Start Date: 04/23/22 Status: Ordered Start: 04-07-2021 End: 06-09-2023 take 1 tablet by mouth once daily levothyroxine (SYNTHROID) 100 mcg tablet Indications: Hypothyroidism, unspecified type Take 1 tablet by mouth once daily. 90 tablet 3 04/07/2021 06/09/2023 Discontinued Start: 03-04-2018 take 75 ug by mouth once daily levothyroxine 75 mcg, Oral, Daily, Refills(s) 0, Thyroid Start Date: 03/04/18 Status: Ordered take 1 tablet by robinson th once daily levothyroxine (SYNTHROID) 75 MCG tablet Take 1 tablet by mouth Daily 0 Active Levothyroxine So dium Active Comment on above: Take 1 tablet by robinson th once daily. liothyronine sodium 0.005 mg oral tablet (20 sources) l-Triiodothyroni ne Start: 03-03-2023 take 1 tablet by mouth once daily liothyronine 5 mcg Tab 5 mcg, Oral, Daily, # 90 tab(s), Refills(s) 3, Pharmacy: [facility], 168, cm, 02/03/23 14:52:00 EST, Height/Length Dosing, 85.5, kg, 02/03/23 14:52:00 EST, Weight Dosing Start Date: 03/03/23 Status: Ordered Start: 11-25-2022 take 1 tablet by robinson th once daily liothyronine 5 mcg Tab 5 mcg, Oral, Daily, # 90 tab(s), Refills(s) 3, [id number] 168, cm, 11/25/22 11:03:00 EDT, Height/Length Dosing, 82.5, kg, 11/25/22 11:03:00 EDT, Weight Dosing Start Date: 11/25/22 Status: Ordered Start: 05-21-2022 take 1 tablet by robinson th once daily liothyronine 5 mcg Tab 5 mcg, Oral, Daily, # 90 tab(s), Refills(s) 1, [id number] 167.2, cm, 05/05/22 13:30:00 EDT, Height/Length Dosing, 84.5, kg, 05/05/22 13:30:00 EDT, Weight Dosing Start Date: 05/21/22 Status: Ordered Start: 09-11-2019 take 1 tablet by robinson th once daily liothyronine (CYTOMEL) 5 mcg tablet Take 5 mcg by mouth once daily. 0 09/11/2019 Active take 1 tablet by robinson th every twenty-four hours Liothyronine Sodium 5 MCG [...] dizziness, # 30 tab(s), Refills(s) 0, Pharmacy: [facility]/pharmacy #[id number], 168, cm, 06/10/22 10:57:00 EDT, Height/Length Dosing, 83.7, kg, 06/10/22 10:57:00 EDT, Weight Dosing Start Date: 06/10/22 Status: Ordered metFORMIN hydrochloride 1000 mg oral tablet (6 sources) Biguanide Start: 03-04-2018 take 1000 mg by mouth twice daily metformin 1,000 mg, Oral, BID, Refills(s) 0, Blood glucose Start Date: 03/04/18 Status: Ordered take 2 tablets by mo [facility] twice daily at mealtime metformin 500 MG Tab tablet Take 1,000 m g by mouth 2 times daily with meals. 0 Active methocarbamol 500 mg oral tablet (20 sources) Muscle Relaxant Start: 05-30-2023 take 500 mg by mouth twice daily Methocarbamol Active 500 MG PO Twice daily May 30, 2023 12:00am Start: 05-28-2023 End: 06-27-2023 take 1.5 tablets by mouth three times daily methocarbamol (ROBAXIN) 500 mg tablet Take 1.5 tablets (750mg) by mouth three times a day. 135 tablet 0 05/28/2023 06/27/2023 Active Start: 05-21-2023 End: 05-29-2023 take 1 tablet by mouth three times daily methocarbamol (ROBAXIN) 500 mg tablet Take 1 tablet by mouth three times a day for 7 days. 21 tablet 0 05/21/2023 05/29/2023 Suspended Start: 11-19-2022 End: 12-06-2022 take 1 tablet by mouth every eight hours as needed methocarbamol 1,000 mg tablet Take 1 tablet by mouth three times a day as needed. 15 tablet 0 11/19/2022 12/06/2022 Discontinued Start: 11-19-2022 [facility] as needed methocarbamol 1,000 [...] th three times a day as needed. Take 1 tablet by robinson th three times a day for 7 days. Take 1.5 tablets by mouth three times a day. Take 1.5 tablets (75 0mg) by mouth three times a day. methylPREDNISolone 4 mg oral tablet (5 sources) Corticosteroid Start: 12-29-2022 End: 01-04-2023 Medrol 4 mg Tab = 1 packet(s), Oral, As Directed, as directed on package labeling, X 6 day(s), # 21 tab(s), Refills(s) 0, Pharmacy: [facility]/pharmacy #[id number], 168, cm, 12/29/22 15:01:00 EST, Height/Length Dosing, 83.8, kg, 12/29/22 15:01:00 EST, Weight Dosing Start Date: 12/29/22 Stop Date: 01/04/23 Status: Ordered Start: 07-20-2022 End: 07-26-2022 Medrol 4 mg Tab = 1 packet(s ), Oral, As Directed, as directed on package labeling, X 6 day(s), # 21 tab(s), Refills(s) 0, [id number] 168, cm, 07/20/22 10:48:00 EDT, Height/Length Dosing, 81.1, kg, 07/20/22 10:48:00 EDT, Weight Dosing Start Date: 07/20/22 Stop Date: 07/26/22 Status: Ordered Start: 08-17-2021 methylPREDNISo lone 4 MG as directed Orally Once a day for 6 days Aug, Active methylPREDNISolone 4 mg tab dosepak (3 sources) Start: 04-20-2023 take 1 tablet by mouth once methylPREDNISolone 4 mg tab dosepak = 1 packet(s), Oral, Once, as directed on package labeling, # 21 tab(s), Refills(s) 0, [id number] 167, cm, 04/02/23 11:01:00 EST, Height/Length Dosing, 82.7, kg, 04/02/23 11:01:00 EST, Weight Dosing Start Date: 04/20/23 Status: Ordered metoclopramide 10 mg oral tablet (20 sources) Dopamine-2 Receptor Antagonist Start: 05-30-2023 take 10 mg by mouth three times daily Metoclopramide Hcl Active 10 MG PO Three times daily May 30, 2023 12:00am Start: 03-24-2023 take 1 tablet by robinson th four times daily metoclopramide 10 mg Tab 10 mg = 1 tab(s), Oral, QID, # 120 tab(s), Refills(s) 0 Start Date: 03/24/23 Status: Ordered Start: 03-20-2023 take 0.5 tablet by m outh three times daily at mealtime metoclopramide (Reglan) 10 mg tablet Indications: Abdominal pain , Nausea and vomiting, unspecified vomiting type Take 0.5 tablets (5 mg) by mouth 3 times a day with meals. 90 tablet 2 03/20/2023 Active Start: 03-20-2023 metoclopramide (Reglan) tablet 5 mg Start: 03-19-2023 take 10 mg intraveno usly every six hours as needed metoclopramide (Reglan) injection 10 mg Start: 11-02-2022 End: 11-02-2022 Metoclopramide (REGLAN) inje ction 10 mg Start: 10-28-2022 End: 11-27-2022 take 1 tablet by mouth at bedtime metoclopramide HCl ( REGLAN) 5 mg tablet Take 1 tablet by [...] day(s), # 30 tab(s), Refills(s) 0, Pharmacy: [facility]/pharmacy #[id number], 168, cm, 06/17/22 10:54:00 EDT, Height/Length Dosing, 83.1, kg, 06/17/22 10:54:00 EDT, Weight Dosing Start Date: 06/17/22 Stop Date: 06/27/22 Status: Ordered mirtazapine 30 mg oral tablet (20 sources) Start: 06-03-2023 End: 11-30-2023 take 1 tablet by mouth once daily at bedtime mirtazapine (REMERON) 30 mg tablet Indications: Generalized anxiety disorder , Major depressive disorder, recurrent episode, moderate (HCC) Take 1 tablet by mouth daily at bedtime. 90 tablet 1 06/03/2023 11/30/2023 Active Start: 09-09-2021 End: 05-09-2023 take 1 tablet by mouth once daily at bedtime mirtazapine (REMERON) 15 mg tablet Indications: Generalized anxiety disorder , Major depressive disorder, recurrent episode, moderate (HCC) Take 1 tablet by mouth daily at bedtime. 90 tablet 1 11/10/2022 Active Start: 06-27-2021 take 1 tablet by robinson [...] above: Take 1 tablet by robinson th daily at bedtime. TAKE 1 TABLET BY ROBINSON TH DAILY AT BEDTIME 1 ml morphine sulfate 2 mg/ml prefilled syringe (3 sources) Opioid Agonist Start: take 2 mg intravenously every four hours as needed morphine injection 2 mg Start: 03-17-2023 End: 03-18-2023 take 4 mg intravenously every four hours as needed morphine injection 4 mg Multi Vitamins oral tablet (4 sources) Start: 05-05-2022 Multi Vitamins oral tablet 1 tab(s), Oral, Daily, 30 tab(s), Refill(s) 0 Start Date: 05/05/22 Status: Ordered nutritional drink (Ensure Hi gh Protein) liquid (4 sources) Start: 03-10-[address] (Ensure High Protein) liquid Indications: Median arcuate ligament syndrome (CMS/HCC) Take 90 bottles by mouth every 30 (thirty) days. Take one 237mL bottles TID with meals for 30 days 237 mL 0 03/10/2023 Active nutritional supplements (NUT PIPO 2.0) 0.08 gram-2 kcal/mL liqd (9 sources) Start: 06-09-2023 End: 12-06-2023 nutritional supplements (NUT PIPO 2.0) 0.08 gram-2 kcal/mL liqd 45 mL/hr by FEEDING TUBE route continuous infusion starting at 6 pm. Plus 180cc q 4h water flushes. 1080 mL 3 06/09/2023 12/06/2023 Active Start: 05-29-2023 End: 06-09-2023 nutritional supplements (NUT PIPO 2.0) 0.08 gram-2 kcal/mL liqd 45 mL/hr by FEEDING TUBE route once daily. Run for 18 hours, off 6 hours. 47233 mL 3 05/29/2023 06/09/2023 Discontinued Start: 05-29-2023 End: 08-27-2023 nutritional supplements (NUT PIPO 2.0) 0.08 gram-2 kcal/mL liqd 45 mL/hr by FEEDING TUBE route once daily. Run for 18 hours, off 6 hours. 67850 mL 3 05/29/2023 08/27/2023 Active Start: 05-28-2023 End: 08-26-2023 nutritional supplements (NUT PIPO 2.0) 0.08 gram-2 kcal/mL liqd 45 mL/hr by FEEDING TUBE route once daily. Run for 18 hours, off 6 hours. 80197 mL 3 05/28/2023 08/26/2023 Active Comment on above: 45 mL/hr by FEEDING TUBE route once daily. Run for 18 hours, off 6 hours. nystatin 038320 unt/ml oral suspension (1 source) Polyene Antifungal Start: 06-09-19 End: 06-15-19 24 take 5 mL by mouth four times daily nystatin (MYCOSTATIN) 100,000 units/mL oral liquid Take 5 mL by mouth four times daily for 23 doses. Swish and swallow. 115 mL 0 06/09/2023 06/15/2023 Active ondansetron 4 mg oral tablet (20 sources) Serotonin-3 Receptor Antagonist Start: 03-17-19 take 4 mg intravenously every six hours as needed ondansetron (Zofran) injection 4 mg Start: 03-05-2023 take 1 tablet by robinson th every eight hours as needed ondansetron (Zofran) tablet 4 mg Start: 03-05-2023 End: 03-05-2023 ondansetron (Zofran) injecti on 4 mg Start: 02-13-2023 End: 06-20-2023 take 1 tablet by mouth every eight hours as needed ondansetron (ZOFRAN) 4 mg tablet Take 1 tablet by mouth every 8 hours as needed for nausea/vomiting. 30 tablet 0 05/21/2023 06/20/2023 Active Start: 12-01-2022 End: 03-17-2023 take 1 tablet by mouth every eight hours for nausea ondansetron ODT (Zofran-ODT) 4 mg disintegrating tablet Indications: Median arcuate ligament syndrome (CMS/HCC) Take 1 tablet (4 mg) by mouth every 8 hours if needed for nausea. 20 tablet 1 03/10/2023 Active Start: 11-19-2022 End: 12-19-2022 take 1 tablet [...] needed for nausea, # 10 tab(s), Refills(s) 0 Start Date: 03/15/23 Status: Ordered Start: 06-07-2022 take 1 tablet by robinson th every six hours ondansetron 4 mg Dis Tab 4 mg = 1 tab(s), Oral, q6hr, # 12 tab(s), Refills(s) 0, Pharmacy: [facility]/pharmacy #[id number], 168, cm, 06/07/22 10:23:00 EDT, Height/Length Dosing, 83, kg, 06/07/22 10:23:00 EDT, Weight Dosing Start Date: 06/07/22 Status: Ordered Start: 07-27-2021 End: 07-27-2021 ondansetron (ZOFRAN) injecti on 4 mg Start: 12-28-2020 take 1 tablet by robinson th three times daily Zofran ODT 4 mg Tab 4 mg = 1 tab(s), Oral, TID, # 10 tab(s), Refills(s) 0, Pharmacy: [facility]/pharmacy #[id number], 167, cm, 12/20/20 9:30:00 EDT, Height/Length [...] every 8 hours as needed for nausea/vomiting. oxyCODONE hydrochloride 5 mg oral capsule (16 sources) Opioid Agonist Start: 05-14-19 take 1 capsule by mouth every six hours as needed for pain oxyCODONE 5 mg Cap 5 mg = 1 cap(s), Oral, q6hr, PRN for pain, # 12 cap(s), Refills(s) 0, Pharmacy: [facility]/pharmacy #[id number], 167, cm, 05/12/23 9:37:00 EDT, Height/Length Dosing, 79.8, kg, 05/12/23 9:37:00 EDT, Weight Dosing Start Date: 05/14/23 Status: Ordered Start: 05-09-2023 End: 05-12-2023 take 1 tablet by mouth every six hours oxyCODONE 5 mg Tab 5 mg = 1 tab(s), Oral, q6hr, X 3 day(s), # 10 tab(s), Refills(s) 0, [id number] 167, cm, 05/09/23 11:51:00 EDT, Height/Length Dosing, 82.7, kg, 05/09/23 11:51:00 EDT, Weight Dosing Start Date: 05/09/23 Stop Date: 05/12/23 Status: Ordered Start: 01-30-2022 End: 03-05-2022 oxyCODONE IR (ROXICODONE) [...] for pain for up to 5 doses. pantoprazole 40 mg delayed release oral tablet (20 sources) Proton Pump Inhibitor Start: take 1 tablet by mouth once daily Pantoprazole [address] Tab 40 mg = 1 tab(s), Oral, Daily, # 30 tab(s), Refills(s) 0, [id number] 167, cm, 05/12/23 9:37:00 EDT, Height/Length Dosing, 79.8, kg, 05/12/23 9:37:00 EDT, Weight Dosing Start Date: 05/14/23 Status: Ordered Start: 04-13-2023 pantoprazole ( ProtoNix) 40 mg EC tablet Indications: Nausea and vomiting, unspecified vomiting type TAKE 1 TAB ONCE DAILY IN THE MORNING. TAKE BEFORE MEALS. DO NOT CRUSH, CHEW, OR SPLIT. 90 tablet 1 04/13/2023 Active Start: 03-20-2023 take 1 tablet by robinson th once daily before mealtime pantoprazole (ProtoNix) 40 mg EC tablet Indications: Nausea and vomiting, unspecified vomiting type Take 1 tablet (40 mg) by mouth once daily in the morning. Take before meals. Do not crush, chew, or split. 30 tablet 2 03/20/2023 Active Start: 03-17-2023 pantoprazole ( ProtoNix) injection 40 mg Start: 01-16-2021 take 1 tablet by robinson th twice daily Protonix 40 mg Tab-DR 40 mg = 1 tab(s), Oral, BID, # 30 tab(s), Refills(s) 0 Start Date: 01/16/21 Status: Ordered take 40 mg by mouth once daily before breakfast pantoprazole (PROTONIX) 40 mg grps Take 40 mg by mouth daily before breakfast. 0 Active Comment on above: Take 40 mg by mouth daily before breakfast. polyethylene glycol 3350 44836 mg powder for oral solution (20 sources) Osmotic Laxative Start: 06-09-2023 End: 09-07-2023 polyethylene glycol 3350 (MIRALAX) 17 gram/dose powder Take 17 g by mouth once daily as needed for constipation. 0 06/09/2023 09/07/2023 Active Start: 05-30-2023 Polyethylene G lycol 3350 (Miralax) 17 gram/dose powder Active 17 GM PO Twice daily 238 May 30, 2023 12:00am mix into 4-8 oz. of any hot/cold/room temp. beverage; use immediately Start: 06-23-2022 End: 06-09-2023 polyethylene glycol 3350 (RI RALAX) 17 gram/dose powder Take 17 g by mouth twice daily. reduced the dose or stop if you get diarrhea and restart after 48 hours to maintain 'at least' once a day bowel movement. Dissolve dose in 4 - 8 ounces of liquid and take as directed. 507 g 1 06/23/2022 06/09/2023 Discontinued Start: 06-23-2022 take 17 g by mouth e very twenty-four hours as needed polyethylene glycol (Glycolax, Miralax) 17 gram/dose powder Take 17 g by mouth once daily as needed. 0 06/23/2022 Active Start: 01-30-2022 polyethylene g lycol [...] ounces of liquid and take as directed. 1000 ml potassium chloride 0.02 meq/ml / sodium chloride 4.5 mg/ml injection (1 source) Start: sodium chloride 0.45 % with KCl 20 mEq/L infusion predniSONE 20 mg oral tablet (1 source) Start: End: take 2 tablets by mouth once daily predniSONE (DELTASONE) 20 MG tablet Take 2 tablets by mouth daily for 5 days 10 tablet 0 10/31/2022 11/05/2022 Active prochlorperazine 10 mg oral tablet (20 sources) Phenothiazine Start: End: take 1 tablet by mouth every six hours prochlorperazine (COMPAZINE) 10 mg tablet Take 1 tablet by mouth every 6 hours for 14 days. 56 tablet 0 05/21/2023 06/05/2023 Active Start: 03-16-2023 End: 03-16-2023 prochlorperazine (Compazine) injection 5 mg Start: 03-06-2023 take 1 tablet by robinson every six hours as needed prochlorperazine (Compazine) tablet 10 mg Start: 10-31-2022 End: 10-31-2022 prochlorperazine (COMPAZINE) injection 10 mg Start: 01-30-2022 take 2 tablets by mo [facility] every six hours as needed prochlorperazine (COMPAZINE) 5 mg tablet Take 2 tablets by mouth every 6 hours as needed. 28 tablet 1 01/30/2022 Active Start: 04-10-2020 End: 02-13-2023 take 1 tablet by mouth three times daily Prochlorperazine Maleate (Compazine) 10 mg tablet Discontinued 10 MG PO Three times daily 15 5 April 10, 2020 1:00am February 13, 2023 2:59pm Comment on above: Take 2 tablets by mo uth every 6 hours as needed. Take 1 tablet by robinson th every 6 hours for 14 days. ProFe (4 sources) Start: 03-04-19 take 180 mg by mouth once daily ProFe 180 mg, Oral, Daily, Refills(s) 0, Prophylaxis Start Date: 03/04/18 Status: Ordered promethazine hydrochloride 25 mg rectal suppository (20 sources) Phenothiazine Start: 04-06-19 take 25 mg rectal route every six hours as needed for nausea Phenergan 25 mg Supp 25 mg = 1 supp, Rectal, q6hr, PRN Nausea/Vomiting, # 6 EA, Refills(s) 0, Pharmacy: [facility]/pharmacy #[id number], 167, cm, 05/06/23 15:49:00 EDT, Height/Length Dosing, 82.7, kg, 05/06/23 15:49:00 EDT, Weight Dosing Start Date: 05/06/23 Status: Ordered Start: 12-09-2022 End: 05-30-2023 take 25 mg by mouth every six hours Promethazine Discontinued 25 MG PO Q6H April 06, 2023 1:00am May 30, 2023 5:49pm Start: 11-02-2022 take 1 tablet by robinson th every four hours as needed Promethazine 25 MG tablet Take 1 tablet by mouth every 4 hours as needed (Nausea/Vomiting). 15 tablet 0 11/02/2022 Active Start: 10-20-2022 take 1 tablet by robinson th three times daily promethazine 25 mg Tab 25 mg = 1 tab(s), Oral, TID, # 15 tab(s), Refills(s) 0, Pharmacy: [facility]/pharmacy #[id number], 168, cm, 10/20/22 8:21:00 EDT, Height/Length Dosing, 85.6, kg, 10/20/22 8:21:00 EDT, Weight Dosing Start Date: 10/20/22 Status: Ordered Start: 06-10-2022 take 1 tablet by robinson th every four hours promethazine 12.5 mg oral tablet 12.5 mg = 1 tab(s), Oral, q4hr, # 60 tab(s), Refills(s) 0, Pharmacy: [facility]/pharmacy #[id number], 168, cm, 06/10/22 12:37:00 EDT, Height/Length Dosing, 83.7, kg, 06/10/22 12:37:00 EDT, Weight Dosing Start Date: 06/10/22 Status: Ordered Start: 12-20-2020 take 1 tablet by robinson th every six hours as needed for nausea promethazine 25 mg Tab 25 mg = 1 tab(s), Oral, q6hr, PRN as needed for nausea/vomiting, # 12 tab(s), Refills(s) 0, Pharmacy: [facility]/pharmacy #[id number], 167, cm, 12/20/20 9:30:00 EDT, Height/Length Dosing, 90, kg, 12/20/20 9:30:00 EDT, Weight Dosing Start Date: 12/20/20 Status: Ordered Comment on above: Take 1 tablet by robinson th every 6 hours as needed. prucalopride 2 mg oral tablet (7 sources) Start: 07-23-19 End: 08-22-19 take 1 tablet by mouth once daily prucalopride (MOTEGRITY) 2 mg tab tablet Take 1 tablet (2 mg) by mouth once daily. 30 tablet 0 07/22/2022 08/21/2022 Active Comment on above: Take 1 tablet (2 mg) by mouth once daily. 72 hr scopolamine 0.0139 mg/hr transdermal system (16 sources) Anticholinergic Start: 05-24-19 End: 06-05-19 scopolamine (TRANSDERM-SCOP) patch 1.5 mg/72 hr (delivers 1 mg over 3 days) Apply 1 Patch as directed every 72 hours for 12 days. 4 Patch 0 05/24/2023 06/05/2023 Active Start: 03-05-2023 End: 03-05-2023 scopolamine (Transderm-Scop) patch 1 patch Start: 01-30-2022 End: 03-05-2022 scopolamine (TRANSDERM-SCOP) patch 1.5 mg/72 hr (delivers [...] exposure and every 3 days as needed. Apply 1 Patch as dir ected every 72 hours for 12 days. sertraline 100 mg oral tablet (2 sources) Serotonin Reuptake Inhibitor Start: 03-04-2018 take 100 mg by mouth once daily sertraline 100 mg, Oral, Daily, Refills(s) 0, Depression Start Date: 03/04/18 Status: Ordered 1000 ml sodium chloride 9 mg/ml injection (10 sources) Start: 11-26-2022 End: 11-26-2022 NaCl 0.9% 2,000 mL iv bolus Start: [...] chloride 0.9% IV solu tion 1,000 mL sucralfate 1000 mg oral tablet (20 sources) Aluminum Complex Start: 05-14-2023 sucralfate 1 g Tab 1 gm = 1 tab(s), Oral, QIDACHS, PRN Nausea, # 20 tab(s), Refills(s) 0, Pharmacy: [facility]/pharmacy #[id number], 167, cm, 05/12/23 9:37:00 EDT, Height/Length Dosing, 79.8, kg, 05/12/23 9:37:00 EDT, Weight Dosing Start Date: 05/14/23 Status: Ordered Start: 04-02-2023 End: 04-16-2023 sucralfate 1 g/10 mL Oral Nance sp 10 mL 1 gm = 10 mL, Oral, QIDACHS, X 14 day(s), # 560 mL, Refills(s) 0, Pharmacy: [facility]/pharmacy #[id number], 167, cm, 04/02/23 11:01:00 EST, Height/Length Dosing, 82.7, kg, 04/02/23 11:01:00 EST, Weight Dosing Start Date: 04/02/23 Stop Date: 04/16/23 Status: Ordered Start: 10-20-2022 End: 01-18-2023 take 1 tablet by mouth four times daily sucralfate (CARAFATE) 1 gram tablet Take 1 tablet by mouth four times daily. 120 tablet 2 10/20/2022 12/06/2022 Discontinued (Erroneous entry) Start: 10-19-2022 take 1 g by mouth fo ur times daily Carafate 1 g/10 mL Susp-Oral 1 gram = 10 mL, Oral, QID, # 280 mL, Refills(s) 0, [id number], cm, 10/19/22 8:44:00 EDT, Height/Length Dosing, 85.6, kg, 10/19/22 8:44:00 EDT, Weight Dosing Start Date: 10/19/22 Status: Ordered Start: 01-16-2021 take 1 tablet by robinson th four times daily Carafate Tab 1 gm [...] tablet by robinson th four times daily. tamsulosin hydrochloride 0.4 mg oral capsule (1 source) alpha-Adrenergic Blanka Start: 06-17-2022 take 1 capsule by mouth once daily Flomax 0.4 mg Cap 0.4 mg = 1 cap(s), Oral, Daily, # 10 cap(s), Refills(s) 0, Pharmacy: [facility]/pharmacy #[id number], 168, cm, 06/17/22 10:54:00 EDT, Height/Length Dosing, 83.1, kg, 06/17/22 10:54:00 EDT, Weight Dosing Start Date: 06/17/22 Status: Ordered topiramate 25 mg oral tablet (20 sources) Start: 03-05-2023 take 50 mg by mouth twice daily 50 mg, oral, 2 times daily, First dose on Wed03/05/23 at 2100 Start: 02-01-2023 End: 05-30-2023 take 100 mg by mouth twice daily Topiramate Discontinued 100 MG PO Twice daily February 13, 2023 1:00am May 30, 2023 5:49pm Start: 07-29-2022 take 1 mg by mouth twice daily Topamax 100 mg Tab mg tab(s), Oral, BID, Refills(s) 0 Start Date: 07/29/22 Status: Ordered Start: 10-14-2019 End: 01-02-2022 take 1 tablet by mouth every twelve hours Topiramate 100 MG 1 tablet Orally twice a day for 90 days Sep, Active Start: 10-14-2019 topiramate 50 MG tablet take 0.5 tablet by m outh twice daily topiramate (Topamax) 100 mg tablet Take 0.5 tablets (50 mg) by mouth 2 times a day. HEADACHES 0 Active take 1 tablet by robinson th twice daily topiramate 25 MG tablet Take 25 mg by mouth 2 times daily. 0 Active topiramate (TOPA MAX) 100 MG tablet Take 50 mg by mouth 2 times daily 0 Active Comment on above: Take 100 mg by mouth twice daily. traMADol hydrochloride 50 mg oral tablet (19 sources) Opioid Agonist Start: 06-09-2023 End: 06-16-2023 take 1 tablet by mouth every four hours as needed for pain traMADol (ULTRAM) 50 mg tablet Indications: Right lower quadrant abdominal pain Take 1 tablet by mouth every 4 hours as needed for pain for up to 7 days. 42 tablet 0 06/09/2023 06/16/2023 Active Start: 12-09-2022 End: 12-16-2022 take 1 tablet [...] pain, # 30 tab(s), Refills(s) 0, Pharmacy: [facility]/pharmacy #[id number], 168, cm, 06/26/22 14:12:00 EDT, Height/Length [...] for pain for up to 7 days. vitamin b12 0.1 mg oral tablet (1 source) Vitamin B12 Start: 03-18-2023 cyanocobalamin (Vitamin B-12) tablet 50 mcg Vitamin D (7 sources) Vitamin D Active Zofran ODT 4 mg Tab-Dis (5 sources) Start: 05-06-2023 take 1 tablet by mouth every eight hours as needed for nausea Zofran ODT 4 mg Tab-Dis 4 mg = 1 tab(s), Oral, q8hr, PRN Nausea/Vomiting, # 12 tab(s), Refills(s) 0, Pharmacy: [facility]/pharmacy #[id number], 167, cm, 05/06/23 15:49:00 EDT, Height/Length Dosing, 82.7, kg, 05/06/23 15:49:00 EDT, Weight Dosing Start Date: 05/06/23 Status: Ordered Completed/Discontinued Medications Medication Drug Class(es) Dates Sig (Normalized) Sig (Original) acetaminophen 325 mg / oxyCODONE hydrochloride 5 mg oral tablet (20 sources) Opioid Agonist Start: 03-20-2023 End: 05-30-2023 take 1 tablet by mouth every six hours Oxycodone-Acetamino phen Discontinued 1 TAB PO Q6H 10 3 April 06, 2023 May 30, 2023 5:49pm Start: 03-15-2023 End: 03-18-2023 take 1 tablet by mouth every six hours for pain oxyCODONE-acetaminophen (Percocet) 5-325 mg tablet Indications: Median arcuate ligament syndrome (CMS/HCC) Take 1 tablet by mouth every 6 hours if needed for severe pain (7 - 10). 10 tablet 0 03/20/2023 Active Start: 03-10-2023 take 1 tablet by robinson th every four hours for pain oxyCODONE-acetaminophen (Percocet) 5-325 mg tablet Indications: Median arcuate ligament syndrome (CMS/HCC) Take 1 tablet by mouth every 4 hours if needed for severe pain (7 - 10) (Advised against taking with edibles). 20 tablet 0 03/10/2023 Active Start: 03-08-2023 take 2 tablets by [facility] every four hours as needed oxyCODONE-acetaminophen (Percocet) 5-325 mg per tablet 2 tablet Start: 02-13-2023 End: 05-30-2023 take 1 tablet by mouth once daily Oxycodone-Acetaminophen (Percocet) 5-325 mg tablet Discontinued 1 TAB PO Daily 2 2 February 13, 2023 May 30, 2023 5:49pm Start: 10-19-2022 End: 10-22-2022 Percocet 5 mg-325 mg oral ta blet 1 tab(s), Oral, q6hr for 3 day(s), 10 tab(s), Refill(s) 0, [facility]/pharmacy #[id number], 168, cm, 10/19/22 8:44:00 EDT, Height/Length Dosing, 85.6, kg, 10/19/22 8:44:00 EDT, Weight Dosing Start Date: 10/19/22 Stop Date: 10/22/22 Status: Ordered Start: 06-07-2022 acetaminophen- oxycodone 325 mg-5 mg Tab 1 tab(s), Oral, q4hr for pain, 12 tab(s), Refill(s) 0, [facility]/pharmacy #[id number], 168, cm, 06/07/22 10:23:00 EDT, Height/Length Dosing, 83, kg, 06/07/22 10:23:00 EDT, Weight Dosing Start Date: 06/07/22 Status: Ordered Adult Multivitamin (Infuvite Adult) 10 mL in sodium chloride 0.9% 1,000 mL IV (1 source) Start: 03-17-2023 End: 03-18-2023 Adult Multivitamin (Infuvite Adult) 10 mL in sodium chloride 0.9% 1,000 mL IV alteplase (Cathflo Activase) injection 1 mg (1 source) Start: 03-09-2023 End: 03-09-2023 alteplase (Cathflo Activase) injection 1 mg 3 ml bupivacaine hydrochloride 5 mg/ml / EPINEPHrine 0.005 mg/ml injection (1 source) alpha-Adrenergic Agonist, beta-Adrenergic Agonist, Catecholamine, Amide Local Anesthetic Start: 08-30-2021 End: 08-30-2021 bupivacaine-EPINEPHr ine PF (MARCAINE-w/EPINEPHR INE) 0.5% -[id number] injection 10 mL calcium chloride 0.001 meq/ml / glucose 50 mg/ml / potassium chloride 0.004 meq/ml / sodium chloride 0.103 meq/ml / sodium lactate 0.028 meq/ml injectable solution (1 source) Start: 03-18-2023 End: 03-19-2023 dextrose 5 % and lactated Ringer's infusion chlorhexidine gluconate 1.2 mg/ml mouthwash (1 source) Start: 03-04-2023 End: 03-10-2023 chlorhexidine (Peridex) 0.12 % solution Indications: Preop testing Use as directed. Do not start before March 04, 2023. 473 mL 0 03/04/2023 03/10/2023 Discontinued (Stop Taking at Discharge) cholecalciferol 0.05 mg oral tablet (9 sources) Vitamin D Start: 11-10-2022 End: 12-08-2022 take 1 tablet by mouth once daily cholecalciferol (VITAMIN D-3) 50 mcg (2,000 unit) tablet Indications: Vitamin D deficiency Take 1 tablet by mouth once daily. 0 11/10/2022 12/08/2022 Discontinued (Erroneous entry) Comment on above: Take 1 tablet by robinson once daily. Custom TPN (1 source) End: 03-10-2023 Custom TPN Infuse 1,440 mL into a venous catheter continuously. START AT 5 PM UNTIL 5 AM 0 03/10/2023 Discontinued (Stop Taking at Discharge) diazePAM 5 mg oral tablet (18 sources) Benzodiazepine Start: 03-20-2023 take 1 tablet by mouth every eight hours for muscle spasms diazepam 5 mg Tab 5 mg = 1 tab(s), Oral, q8hr, TAKE 1 TABLET (5 MG) BY MOUTH EVERY 8 HOURS IF NEEDED FOR MUSCLE SPASMS. Start Date: 03/24/23 Status: Ordered Start: 03-17-2023 take 5 mg intravenou sly every four hours as needed diazePAM (Valium) injection 5 mg Start: 03-15-2023 End: 03-18-2023 take 1 tablet by mouth every eight hours for muscle spasms diazePAM (Valium) 5 mg tablet Indications: Median arcuate ligament syndrome (CMS/HCC) Take 1 tablet (5 mg) by mouth every 8 hours if needed for muscle spasms. 10 tablet 0 03/20/2023 Active Start: 03-10-2023 take 1 tablet by robinson th every six hours for muscle spasms diazePAM (Valium) 5 mg tablet Indications: Median arcuate ligament syndrome (CMS/HCC) Take 1 tablet (5 mg) by mouth every 6 hours if needed for muscle spasms (Advised against taking with edibles). 20 tablet 0 03/10/2023 Active Start: 03-05-2023 take 5 mg intravenou sly every six hours as needed diazePAM (Valium) injection 5 mg 1 ml diphenhydrAMINE hydrochloride 50 mg/ml cartridge (1 source) Histamine-1 Receptor Antagonist Start: 11-02-2022 End: 11-02-2022 diphenhydrAMINE (BENADRYL) injection 50 mg estradiol 1 mg oral tablet (1 source) Estrogen Start: 10-31-2022 End: 03-10-2023 take 1 tablet by mouth once daily estradiol (Estrace) 1 mg tablet Take 1 tablet (1 mg) by mouth once daily. 0 10/31/2022 03/10/2023 Discontinued (Stop Taking at Discharge) famotidine (PEPCID) 20 mg in sodium chloride (PF) 10 mL injection (1 source) Start: 07-27-2021 End: 07-27-2021 famotidine (PEPCID) 20 mg in sodium chloride (PF) 10 mL injection 1 ml fentaNYL 0.05 mg/ml injection (4 sources) Opioid Agonist Start: 03-05-2023 End: 03-05-2023 fentaNYL PF (Sublimaze) injection 50 mcg Start: 07-27-2021 End: 07-27-2021 fentaNYL (SUBLIMAZE) injecti on 25 mcg Start: 01-30-2020 End: 01-30-2020 fentaNYL (SUBLIMAZE) injecti on 50 mcg fluticasone / salmeterol (20 sources) Corticosteroid, beta2-Adrenergic Agonist Start: 12-30-2022 take 1 puff(s) by inhalation once daily Advair Diskus 100 mcg-50 mcg inhalation powder See Instructions, 60 blister(s), Refill(s) 0, Take 1 puff 2x daily., [facility]/pharmacy #[id number], 168, cm, 12/29/22 15:01:00 EST, Height/Length Dosing, 83.8, kg, 12/29/22 15:01:00 EST, Weight Dosing Start Date: 12/30/22 Status: Ordered Start: 03-31-2021 take 1 puff(s) by in halation every twelve hours fluticasone-salmeterol (ADVAIR DISKUS) 100-50 mcg/dose inhaler Inhale 1 Puff as instructed every 12 hours. 0 03/31/2021 Suspended Start: 03-31-2021 End: 03-10-2023 take 1 puff(s) by inhalation every twelve hours fluticasone propion-salmeteroL (Advair Diskus) 100-50 mcg/dose diskus inhaler Inhale 1 puff every 12 hours. 0 03/31/2021 03/10/2023 Discontinued (Stop Taking at Discharge) Start: 03-31-2021 take 1 puff(s) by in [...] Comment on above: Inhale as instructed . 1000 ml glucose 50 mg/ml / potassium chloride 0.02 meq/ml / sodium chloride 9 mg/ml injection (2 sources) Start: 03-17-2023 End: 03-18-2023 dextrose 5 % and sodium chloride 0.9 % with KCl 20 mEq/L infusion Start: 03-05-2023 End: 03-07-2023 dextrose 5 % and sodium chlo ride 0.9 % with KCl 20 mEq/L infusion 250 ml glucose 50 mg/ml / sodium chloride 4.5 mg/ml injection (1 source) Start: 03-16-2023 End: 03-16-2023 dextrose 5%-0.45 % sodium chloride infusion hydrocortisone 25 mg/ml topical cream (1 source) Corticosteroid Start: 07-28-2022 End: 07-28-2022 hydrocortisone 2.5 % cream Apply on affected [...] to skin thinning, dyspigmentation, and stretch aguilar. iohexol (OMNIPaque) 350 mg iodine/mL solution 150 mL (2 sources) Start: 03-17-2023 End: 03-17-2023 iohexol (OMNIPaque) 350 mg iodine/mL solution 150 mL Start: 03-17-2023 End: 03-17-2023 iohexol (OMNIPaque) 350 mg i odine/mL solution 150 mL iohexol (OMNIPaque) 350 mg iodine/mL solution 75 mL (1 source) Start: 03-16-2023 End: 03-16-2023 iohexol (OMNIPaque) 350 mg iodine/mL solution 75 mL iohexol (OMNIPAQUE) 350 MG/ML injection 75 mL (1 source) Start: 01-30-2020 End: 01-30-2020 iohexol (OMNIPAQUE) 350 MG/ML injection 75 mL iopamidol (ISOVUE-370) 76 % injection 75 mL (1 source) Start: 07-27-2021 End: 07-27-2021 iopamidol (ISOVUE-370) 76 % injection 75 mL iv contrast (will be provided with radiology test) (1 source) Start: 12-04-2022 End: 12-05-2022 inject 1 dose intravenously once iv contrast [...] sources) Nonsteroidal Anti-inflammatory Drug, Cyclooxygenase Inhibitor Start: 10-31-2022 End: 10-31-2022 ketorolac (TORADOL) injection 30 mg Start: 08-30-2021 [...] times daily. 0 06/02/2021 Discontinued (Therapy completed) linaclotide 0.29 mg oral capsule (20 sources) Guanylate Cyclase-C Agonist Start: 05-12-2023 take 1 capsule by mouth once daily Linzess 290 mcg oral capsule 290 mcg = 1 cap(s), Daily, Refills(s) 0 Start Date: 05/12/23 Status: Ordered Start: 04-28-2023 End: 08-26-2023 take 1 capsule by mouth once daily in the morning linaCLOtide (LINZESS) 290 mcg capsule Take 1 capsule by mouth daily at 6 am. 90 capsule 0 05/28/2023 06/09/2023 Discontinued Start: 08-06-2022 End: 05-07-2023 take 1 capsule by mouth once daily Linaclotide (Linzess) 145 mcg capsule Active 290 MCG PO Daily February 13, 2023 1:00am Comment on above: Take 1 capsule by [facility] DAILY (6 AM). Take 1 capsule by [facility] daily at 6 am. magnesium gluconate 500 mg oral tablet (20 sources) End: 03-10-2023 magnesium, as gluconate, (Magonate) 27 mg magnesium (500 mg) tablet Take 500 mg by mouth once daily. 0 03/10/2023 Discontinued (Stop Taking at Discharge) Comment on above: Take 500 mg by mouth once daily. 50 ml magnesium sulfate 40 mg/ml injection (1 source) Start: 03-06-2023 End: 03-06-2023 magnesium sulfate IV 2 g multivitamin tablet (20 sources) End: 12-08-2022 take [...] robinson th twice daily as needed for pain. for [...] Take 1 tablet by robinson once daily. nutritional supplements (NUTREN 1.5) 0.07 gram-1.5 kcal/mL liqd (13 sources) Start: 05-26-19 End: 06-09-19 nutritional supplements (NUTREN 1.5) 0.07 gram-1.5 kcal/mL liqd TF for PEG-J Rate: 45cc/hr 60010 mL 1 05/26/2023 06/09/2023 Discontinued Start: 05-26-2023 nutritional nance pplements (NUTREN 1.5) 0.07 gram-1.5 kcal/mL liqd TF for PEG-J Rate: 45cc/hr 03758 mL 1 05/26/2023 Active Start: 05-21-2023 End: 06-09-2023 nutritional supplements (NUT PIPO 1.5) 0.07 gram-1.5 kcal/mL liqd 45 mL/hr by FEEDING TUBE route continuous. 1080 mL 2 05/21/2023 06/09/2023 Discontinued Start: 05-21-2023 End: 06-20-2023 nutritional supplements (NUT PIPO 1.5) 0.07 gram-1.5 kcal/mL liqd 45 mL/hr by FEEDING TUBE route continuous. 1080 mL 2 05/21/2023 06/20/2023 Active Start: 05-21-2023 End: 06-20-2023 nutritional supplements (NUT PIPO 1.5) 0.07 gram-1.5 kcal/mL liqd 45 mL/hr by FEEDING TUBE route continuous. 1080 mL 2 05/21/2023 06/20/2023 Suspended Comment on above: 45 mL/hr by FEEDING TUBE route continuous. TF for PEG-J Rate: 45cc/hr omeprazole 40 mg delayed release oral capsule (20 sources) Proton Pump Inhibitor Start: 11-02-2022 End: 12-08-2022 omeprazole (PRILOSEC) 40 mg capsule Indications: Gastroesophageal [...] Start: 10-19-2022 take 1 capsule by mo uth once daily omeprazole (PRILOSEC) 20 mg capsule [...] Start: 07-27-2021 take 1 capsule by mo uth twice daily before mealtime omeprazole (PRILOSEC) 20 MG delayed release capsule Take 1 capsule by mouth 2 times daily (before meals) 60 capsule 0 07/27/2021 Active Start: 07-21-2021 End: 08-29-2021 take 1 capsule by mouth twice daily omeprazole (PRILOSEC) 40 mg capsule Take 1 capsule by mouth twice daily. 60 capsule 0 08/22/2021 08/29/2021 Discontinued Start: 01-15-2021 take 1 capsule by mo uth twice daily omeprazole (PRILOSEC) 40 mg capsule Take 1 capsule by mouth twice daily. 60 capsule 0 01/15/2021 Active Comment on above: Take 1 capsule by mo uth twice daily. Take 1 capsule by mo uth once daily. Take 1 capsule by mo uth as needed. TAKE 1 CAPSULE BY MO UTH NEEDED oxygen (O2) therapy (1 source) Start: 03-05-2023 End: 03-05-2023 oxygen (O2) therapy potassium bicarbonate 25 meq effervescent oral tablet (2 sources) Start: 10-23-2022 End: 03-10-2023 take 1 tablet by mouth once daily Effer-K 25 mEq effervescent tablet Take 1 tablet (25 mEq) by mouth once daily. 0 10/24/2022 03/10/2023 Discontinued (Stop Taking at Discharge) promethazine (Phenergan) 6.25 mg in sodium chloride 0.9% 50 mL IV (1 source) Start: 03-05-2023 End: 03-05-2023 promethazine (Phenergan) 6.25 mg in sodium chloride 0.9% 50 mL IV sennosides, correction 8.6 mg oral tablet (10 sources) Start: 03-05-2023 End: 03-09-2023 take 1 tablet by mouth twice daily 17.2 mg (2 tablet), oral, 2 times daily, First dose on Wed03/05/23 at 1445 Bowel Regimen - for prevention of constipation Hol d for loose stools Start: 06-23-2022 End: 09-22-2022 take 2 tablets by mouth once daily [...] mo uth four times daily as needed. thiamine hydrochloride 100 mg/ml injectable solution (1 source) Start: 03-17-19 End: 03-19-19 thiamine (Vitamin B1) injection 100 mg triamcinolone acetonide 0.001 mg/mg topical ointment (4 [...] Comment on above: Take 1 tablet by [facility] once daily. Problems Active Problems Problem Classification Problem Date Documented Da te Episodic/Chronic Abdominal pain (20 sources) Lower abdominal pain; Translations: [Right upper quadrant pain] Onset: 0 Resolved: 3 01-31-2020 Episodic Anxiety disorders (20 sources) Posttraumatic stress [...] [Spasm of sphincter of Oddi] Onset: 3 Resolved: 3 11-06-2022 Chronic Biliary tract disease (13 sources) Gallstone 07-29-2022 Episodic Chronic obstructive pulmonary disease and bronchiectasis (9 sources) Bronchitis 12-29-2022 Episodic Complication of device; implant or graft (1 source) Other complications of enterostomy; Translations: [Jejunostomy tube site pain (HCC)] Onset: 4 Chronic Complications of surgical procedures or medical care (2 sources) Post-surgical malabsorption; Translations: [Postsurgical malabsorption, not elsewhere classified] Chronic Deficiency and other anemia (20 sources) Anemia; Translations: [Anemia, unspecified] 10-06-2019 Episodic Deficiency and other anemia (7 sources) Iron deficiency anemia; Translations: [Iron deficiency anemia, unspecified] Episodic Diseases of white blood cells (1 source) Leukopenia; Translations: [Decreased white blood cell count, unspecified] Onset: 4 Chronic Disorders of teeth and jaw (1 source) [...] [Essential (primary) hypertension] Onset: 0 03-13-2021 Chronic Gastritis and duodenitis (1 source) Gastritis; Translations: [Gastritis, unspecified, without bleeding] Onset: 3 Episodic Gastroduodenal ulcer (except hemorrhage) (20 sources) Gastric ulcer; Translations: [Gastric ulcer, unspecified as acute or chronic, without hemorrhage or perforation] Onset: 4 03-13-2021 Chronic Genitourinary symptoms and ill-defined conditions (14 sources) Mixed incontinence; Translations: [Incontinence] Onset: 3 Chronic Genitourinary symptoms and ill-defined conditions (1 source) Retention of urine, unspecified; Translations: [Urinary retention] Onset: 4 Episodic Headache; including migraine (8 sources) Migraine with aura; Translations: [Migraine with aura, not intractable, without status migrainosus] Onset: 4 Chronic Headache; including migraine (3 sources) Headache; Translations: [Headache] 01-27-2023 Episodic Inflammation; infection [...] Depressive disorder; Translations: [Depression, controlled] Onset: 0 Resolved: 0 01-03-2020 Chronic Nausea and vomiting (20 sources) Nausea; Translations: [Nausea] Onset: 0 Resolved: 3 09-25-2019 Episodic Nonspecific chest pain (2 sources) Chest pain; Translations: [Chest pain, unspecified] Onset: 3 Episodic Nutritional deficiencies (20 sources) Deficiency of macronutrients; Translations: [Mild protein-calorie malnutrition] Onset: 1 04-08-2020 Chronic Nutritional deficiencies (1 source) Dietary zinc deficiency; Translations: [Dietary zinc deficiency] 04-07-2023 Episodic Osteoarthritis (19 sources) Degenerative joint disease involving multiple joints; Translations: [Polyosteoarthritis, unspecified] Onset: 4 Chronic Other aftercare (1 source) Other long term care administrator (current) 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; Translations: [OTH RETIREMENT CURRENT DRUG THERAPY] Onset: 3 Episodic Other aftercare (1 source) Surgical follow-up; Translations: [Encounter for surgical aftercare following surgery on the digestive system] 09-18-2022 Episodic Other aftercare (1 source) Encounter for follow-up examination after completed treatment for conditions other than malignant neoplasm; Translations: [S/P gastrostomy tube (G tube) placement, follow-up exam] Onset: 4 Episodic Other circulatory disease (20 sources) Celiac artery compression syndrome; 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] Onset: 4 11-25-2022 Chronic Other circulatory disease (5 sources) Celiac artery compression syndrome; 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)] Onset: 3 Chronic Other connective tissue disease (2 sources) Neuropathy; Translations: [Neuralgia and neuritis, unspecified] 01-08-2023 Episodic Other diseases of kidney and ureters (1 source) Acquired renal cyst without neoplastic change; Translations: [Cyst of kidney, acquired] Onset: 3 Episodic Other diseases of kidney and ureters (20 sources) Cyst of kidney 07-29-2022 Episodic Other disorders of stomach and duodenum (6 sources) Gastroparesis syndrome 03-24-2023 Episodic Other endocrine disorders (20 sources) Polycystic [...] [POLYCYSTIC OVARIAN SYNDROME] Onset: 0 Chronic Other endocrine disorders (1 source) Hypoglycemia, unspecified; Translations: [Hypoglycemia] Onset: 4 Chronic Other eye disorders (1 source) Pain in eye; Translations: [Ocular pain, unspecified eye] Episodic Other gastrointestinal disorders (1 source) Abnormal intestinal absorption; Translations: [Intestinal malabsorption, unspecified] 09-18-2022 Chronic Other gastrointestinal disorders (5 sources) Jejunostomy present; Translations: [Other artificial openings of gastrointestinal tract status] Onset: 4 06-07-2023 Chronic Other gastrointestinal disorders (6 sources) Gastrostomy present; Translations: [Gastrostomy status] Onset: 4 06-07-2023 Chronic Other gastrointestinal disorders (1 source) Intestinal malabsorption, unspecified; Translations: [Impaired intestinal absorption] Onset: 3 Chronic Other gastrointestinal disorders (3 sources) Esophageal dysphagia; Translations: [Other dysphagia] Episodic Other gastrointestinal disorders (20 sources) History of bypass of stomach; Translations: [Bariatric surgery status] Onset: 3 Episodic Other gastrointestinal disorders (8 sources) Bariatric surgery status; Translations: [BARIATRIC SURGERY STATUS] Onset: 3 Episodic Other gastrointestinal disorders (1 source) Diarrhea; Translations: [Diarrhea, unspecified] Onset: 3 Episodic Other liver diseases (1 source) Enzyme level - finding; Translations: [Abnormal levels of other serum enzymes] Onset: 3 Episodic Other nervous system disorders (1 source) Chronic pain syndrome; Translations: [Chronic pain syndrome] 01-11-2023 Chronic Other nervous system disorders (2 sources) Chronic pain; Translations: [Other chronic pain] Onset: 4 Chronic Other nervous system disorders (1 source) Other chronic pain; Translations: [Chronic bilateral low back pain without sciatica] Onset: 0 Chronic Other nervous system disorders (4 sources) Postoperative pain ; Translations: [Other acute postprocedural pain] Onset: 4 Episodic Other non-traumatic joint disorders (1 source) Multiple joint pain; Translations: [Pain in unspecified joint] Episodic Other non-traumatic joint disorders (4 sources) Pain in unspecified joint; Translations: [PAIN IN UNSPECIFIED JOINT] Onset: 3 Episodic Other non-traumatic joint disorders (1 source) Pain in right knee; Translations: [Pain in joint, lower leg] 11-04-2022 Episodic Other nutritional; endocrine; and metabolic disorders (20 sources) Obesity; Translations: [Obesity, unspecified] Onset: 0 Resolved: 1 11-29-2020 Chronic Other nutritional; endocrine; and metabolic disorders (1 source) Obese class I; Translations: [Obesity, unspecified] Chronic Other nutritional; endocrine; and metabolic disorders (17 sources) Body mass index 30+ - obesity 05-05-2022 Chronic Other nutritional; endocrine; and metabolic disorders (17 sources) Metabolic syndrome X 04-22-2022 Chronic Other nutritional; endocrine; and metabolic disorders (1 source) Metabolic syndrome; Translations: [METABOLIC SYNDROME] Onset: 3 Chronic Other nutritional; endocrine; and metabolic disorders (1 source) Hypomagnesemia; Translations: [HYPOMAGNESEMIA] Onset: 3 Chronic Other nutritional; endocrine; and metabolic disorders (1 source) Obesity, unspecified; Translations: [Class 1 obesity without serious comorbidity with body mass index (BMI) of 33.0 to 33.9 in adult, unspecified obesity type] Onset: 1 Chronic Other nutritional; endocrine; and metabolic disorders (1 source) Body mass index (BMI) 33.0-33.9, adult; Translations: [...] Episodic Other nutritional; endocrine; and metabolic disorders (11 sources) Dietary intake finding; Translations: [Other symptoms and signs concerning food and fluid intake] Onset: 4 05-25-2023 Episodic Other skin disorders (4 sources) Hirsutism; Translations: [Hirsutism] Episodic Other upper respiratory disease (17 sources) Allergic rhinitis 04-22-2022 Chronic Other upper respiratory infections (5 sources) Other chronic sinusitis; Translations: [Chronic sinusitis, unspecified] Onset: 2 Chronic Otitis media and related conditions (8 sources) Otitis media of left ear 02-03-2023 Episodic Residual codes; unclassified (20 sources) Obstructive sleep apnea syndrome; Translations: [Obstructive sleep apnea (adult) (pediatric)] Onset: 4 10-06-2019 Chronic Residual codes; unclassified (1 source) Obstructive sleep apnea (adult) (pediatric); Translations: [RICHAR on CPAP] Onset: 0 Chronic Residual codes; unclassified (1 source) Dependence on other enabling machines and devices; Translations: [RICHAR on CPAP] Onset: 0 Chronic Residual codes; unclassified (1 source) History of syncope; Translations: [Personal history of other specified conditions] Episodic Residual codes; unclassified (1 source) Edema of face ; Translations: [Localized edema] Episodic Sprains and strains (12 sources) Acetabular labrum tear; Translations: [Other sprain of right hip, initial encounter] Onset: 2 Episodic Substance-related disorders (1 source) Cannabis misuse; Translations: [Cannabis use, unspecified, uncomplicated] Onset: 4 Episodic Superficial injury; contusion (1 source) Contusion of right thumb; Translations: [Contusion of right thumb without damage to nail, initial encounter] Episodic Syncope (2 sources) Syncope and collapse; Translations: [Syncope and collapse] Onset: 3 Episodic Thyroid disorders (20 sources) Hypothyroidism; Translations: [Hypothyroidism, unspecified] Onset: 1 Resolved: 1 04-08-2020 Chronic Unclassified (1 source) NO SHOW Unclassified (2 sources) refferal Onset: 3 Unclassified (1 source) Chronic bilateral low back pain without sciatica; Translations: [Chronic bilateral low back pain without sciatica] Onset: 0 Unclassified (1 source) Feeding difficulties; Translations: [Feeding difficulties] Onset: 3 Past or Other Problems Problem Classification Problem Date Documented Da te Episodic/Chronic Abdominal hernia (20 sources) Hernia of anterior abdominal wall; Translations: [Ventral hernia without obstruction or gangrene] Onset: 01-28-2021 Resolved: 01-28-2021 03-13-2021 Episodic Administrative/social admission (20 sources) Patient encounter status; Translations: [Dietary counseling and surveillance] Onset: 12-07-2022 Episodic Allergic reactions (1 source) Allergic contact dermatitis, unspecified cause Onset: 08-17-2021 Resolved: 08-17-2021 Episodic Calculus of urinary tract (20 sources) Kidney stone; Translations: [Calculus of kidney] Onset: 06-20-2022 06-24-2022 Episodic Conditions associated with dizziness or vertigo (20 sources) Vertigo; Translations: [Dizziness and giddiness] Onset: 10-06-2019 10-06-2019 Episodic Deficiency and other anemia (1 source) Other iron deficiency anemias; Translations: [OTHER IRON DEFICIENCY ANEMIAS] Onset: 11-01-2021 Episodic Fever of unknown origin (5 sources) Feeling feverish; Translations: [Fever, unspecified] Onset: 10-04-2021 Episodic Fluid and electrolyte disorders (20 sources) Hypokalemia; Translations: [Dehydration] Onset: 10-23-2022 11-04-2022 Episodic Immunizations and screening for infectious disease [...] Onset: 06-21-2022 06-23-2022 Episodic Other gastrointestinal disorders (20 sources) History of bariatric surgical procedure; Translations: [Bariatric surgery status] Onset: 10-26-2022 Episodic Other gastrointestinal disorders (5 sources) Diarrhea, unspecified; Translations: [DIARRHEA UNSPECIFIED] Onset: 02-17-2022 Episodic Other gastrointestinal disorders (20 sources) Constipation; Translations: [Constipation, unspecified] Onset: 06-21-2022 Episodic Other gastrointestinal disorders (20 sources) H/O: GIT by-pass; Translations: [Bariatric surgery status] Onset: 06-24-2022 06-24-2022 Episodic Other gastrointestinal disorders (1 source) Constipation, [...] sense organs] Onset: 06-24-2022 06-24-2022 Episodic Other nervous system disorders (1 source) Other acute postprocedural pain; Translations: [Post-op pain] Onset: 11-11-2022 Episodic Other nutritional; endocrine; and metabolic disorders (7 sources) Obese class II; Translations: [Obesity, unspecified] Onset: 10-13-2019 Resolved: 11-29-2020 12-09-2020 Chronic Other nutritional; endocrine; and metabolic disorders (20 sources) Feeding problem; Translations: [Feeding difficulties] Onset: 12-07-2022 12-09-2022 Episodic Other nutritional; endocrine; and metabolic disorders (1 source) Abnormal weight loss; Translations: [Weight loss] Onset: 12-06-2022 Episodic Other screening for suspected conditions (not [...] digestive tract; Translations: [History of cholecystectomy] Onset: 10-25-2022 Episodic Residual codes; unclassified (1 source) Localized edema; Translations: [Facial edema] Onset: 07-28-2022 Episodic Spondylosis; intervertebral disc disorders; other back problems (20 sources) Chronic low back pain; Translations: [Chronic bilateral low back pain without sciatica] Onset: 10-06-2019 10-06-2019 Episodic Unclassified (4 sources) Onset: 01-14-2023 01-14-2023 Results Test Name Value Interpretation Reference [facility] HNO ID: [id number] Author: RADHA PRICE CT Service: Radiology Author Type: Computational Scientist Type: [facility] Filed: 06/18/2023 14:01 Note Text: Radiology Service Progress Note DATE OF SERVICE: June 18, 2023 TIME: 2:01 PM PATIENT IDENTITY VERIFICATION COMPLETED USING TWO (2) STANDARD IDENTIFIERS: Name and Date of confirmed by patient verbally. FALL SCREENING: Has the patient had 2 falls in the last year or 1 fall with injury or currently using an Ambulatory Assistive Device (Walker, Cane, Wheelchair, Crutches, etc.)? No PATIENT GENDER DATA: Female. status: : No status: NO. PATIENT RELEVANT IMPLANT DATA REVIEWED: Not Applicable PATIENT PRESENTS WITH AN IMPLANTABLE OR ATTACHED THERAPY ASSISTANT: No ALLERGIES: Reviewed and unchanged CONTRAST ALLERGY: NO. EXAM: CT -CONTRAST INDUCED NEPHROPATHY RISK FACTORS: Not applicable CREATININE: Creatinine Date Value Ref Range Status 06/18/2023 0.83 0.58 - 0.96 mg/dL Final 06/09/2023 0.68 0.58 - 0.96 mg/dL Final 06/07/2023 0.68 0.58 - 0.96 mg/dL Final Estimated Glomerular Filtration Rate Date Value Ref Range Status 06/18/2023 95 >=60 mL/min/1.73m? Final Comment: Estimated Glomerular Filtration [...] RESULTS: POC done: Yes, See Lab Tab June 18, 2023 TREATMENT: N/A and No Hydration needed. PERIPHERAL IV DATA: Inpatient - refer to LDA documentation RADIOLOGY DEPARTMENT: CT; Exam(s) Completed: Abdomen/Pelvis SIGNATURE: EDIE Diamond PATIENT NAME: Abbey Garcia DATE: June 18, 2023 TIME: 2:01 PM Normal [facility] CBC W Auto Differential pane l (Bld)on 06-18-2023 Basophils (Bld) [#/Vol] 0.04 10*3/uL Normal <0.11 [facility] Comment on above: Order Comment: Speci men Type: BLOOD SPECIMEN Ordering Facility: [facility] Address: [address] [place] [address] Performed By: #### H CG #### [facility] CLIA [id number] [address] [place] [address] [place] Basophils/100 WBC (Bld) 0.8 % Normal [facility] Comment on above: Order Comment: Geraldo men Type: BLOOD SPECIMEN Ordering Facility: [facility] Address: [address] [place] [address] Performed By: #### H CG #### [facility] CLIA [id number] [address] [place] [address] [place] Differential cell count method Nom (Bld) Auto Normal [facility] Comment on above: Order Comment: Speci men Type: BLOOD SPECIMEN Ordering Facility: [facility] Address: [address] [place] [address] Performed By: #### H CG #### [facility] CLIA [id number] [address] [place] [address] [place] Eosinophils (Bld) [#/Vol] 0.13 10*3/uL Normal <0.46 [facility] Comment on above: Order Comment: Speci men Type: BLOOD SPECIMEN Ordering Facility: [facility] Address: [address] [place] [address] Performed By: #### H CG #### [facility] CLIA [id number] [address] [place] [address] [place] Eosinophils/100 WBC (Bld) 2.8 % Normal [facility] Comment on above: Order Comment: Speci men Type: BLOOD SPECIMEN Ordering Facility: [facility] Address: [address] [place] [address] Performed By: #### H CG #### [facility] CLIA [id number] [address] [place] [address] [place] Erythrocyte distribution width (RBC) [Ratio] 13.3 % Normal 11.5-15.0 [facility] Comment on above: Order Comment: Speci men Type: BLOOD SPECIMEN Ordering Facility: [facility] Address: [address] [place] [address] Performed By: #### H CG #### [facility] CLIA [id number] [address] [place] [address] [place] Hematocrit (Bld) [Volume fraction] 34.6 % Low 36.0-46.0 [facility] Comment on above: Order Comment: Speci men Type: BLOOD SPECIMEN Ordering Facility: [facility] Address: [address] [place] [address] Performed By: #### H CG #### [facility] CLIA [id number] [address] [place] [address] [place] Hemoglobin (Bld) [Mass/Vol] 12.0 g/dL Normal 11.5-15.5 [facility] Comment on above: Order Comment: Speci men Type: BLOOD SPECIMEN Ordering Facility: [facility] Address: [address] [place] [address] Performed By: #### H CG #### [facility] CLIA [id number] [address] [place] [address] [place] Immature granulocytes (Bld) [#/Vol] 10*3/uL Normal <0.10 [facility] Comment on above: Order Comment: Speci men Type: BLOOD SPECIMEN Ordering Facility: [facility] Address: [address] [place] [address] Performed By: #### H CG #### [facility] CLIA [id number] [address] [place] [address] [place] Immature granulocytes/100 WBC (Bld) 0.2 % Normal [facility] Comment on above: Order Comment: Speci men Type: BLOOD SPECIMEN Ordering Facility: [facility] Address: [address] [place] [address] Performed By: #### H CG #### [facility] CLIA [id number] [address] [place] [address] [place] Lymphocytes (Bld) [#/Vol] 1.90 10*3/uL Normal 1.00-4.00 [facility] Comment on above: Order Comment: Speci men Type: BLOOD SPECIMEN Ordering Facility: [facility] Address: [address] [place] [address] Performed By: #### H CG #### [facility] CLIA [id number] [address] [place] [address] [place] Lymphocytes/100 WBC (Bld) 40.3 % Normal [facility] Comment on above: Order Comment: Speci men Type: BLOOD SPECIMEN Ordering Facility: [facility] Address: [address] [place] [address] Performed By: #### H CG #### [facility] CLIA [id number] [address] [place] [address] [place] MCH (RBC) [Entitic mass] 30.9 pg Normal 26.0-34.0 [facility] Comment on above: Order Comment: Speci men Type: BLOOD SPECIMEN Ordering Facility: [facility] Address: [address] [place] [address] Performed By: #### H CG #### [facility] CLIA [id number] [address] [place] [address] [place] MCHC (RBC) [Mass/Vol] 34.7 g/dL Normal 30.5-36.0 [facility] Comment on above: Order Comment: Speci men Type: BLOOD SPECIMEN Ordering Facility: [facility] Address: [address] [place] [address] Performed By: #### H CG #### [facility] CLIA [id number] [address] [place] [address] [place] MCV (RBC) [Entitic vol] 89.2 fL Normal 80.0-100.0 [facility] Comment on above: Order Comment: Speci men Type: BLOOD SPECIMEN Ordering Facility: [facility] Address: [address] [place] [address] Performed By: #### H CG #### [facility] CLIA [id number] [address] [place] [address] [place] Monocytes (Bld) [#/Vol] 0.24 10*3/uL Normal <0.87 [facility] Comment on above: Order Comment: Speci men Type: BLOOD SPECIMEN Ordering Facility: [facility] Address: [address] [place] [address] Performed By: #### H CG #### [facility] CLIA [id number] [address] [place] [address] [place] Monocytes/100 WBC (Bld) 5.1 % Normal [facility] Comment on above: Order Comment: Speci men Type: BLOOD SPECIMEN Ordering Facility: [facility] Address: [address] [place] [address] Performed By: #### H CG #### [facility] CLIA [id number] [address] [place] [address] [place] Neutrophils (Bld) [#/Vol] 2.39 10*3/uL Normal 1.45-7.50 [facility] Comment on above: Order Comment: Speci men Type: BLOOD SPECIMEN Ordering Facility: [facility] Address: [address] [place] [address] Performed By: #### H CG #### [facility] CLIA [id number] [address] [place] [address] [place] Neutrophils/100 WBC (Bld) 50.8 % Normal [facility] Comment on above: Order Comment: Speci men Type: BLOOD SPECIMEN Ordering Facility: [facility] Address: [address] [place] [address] Performed By: #### H CG #### [facility] CLIA [id number] [address] [place] [address] [place] Nucleated RBC (Bld) [#/Vol] 10*3/uL Normal <0.01 [facility] Comment on above: Order Comment: Speci men Type: BLOOD SPECIMEN Ordering Facility: [facility] Address: [address] [place] [address] Performed By: #### H CG #### [facility] CLIA [id number] [address] [place] [address] [place] Nucleated RBC/100 WBC (Bld) [Ratio] 0.0 /100 WBC Normal [facility] Comment on above: Order Comment: Speci men Type: BLOOD SPECIMEN Ordering Facility: [facility] Address: [address] [place] [address] Performed By: #### H CG #### [facility] CLIA [id number] [address] [place] [address] [place] Platelet mean volume (Bld) [Entitic vol] 11.4 fL Normal 9.0-12.7 [facility] Comment on above: Order Comment: Speci men Type: BLOOD SPECIMEN Ordering Facility: [facility] Address: [address] [place] [address] Performed By: #### H CG #### [facility] CLIA [id number] [address] [place] [address] [place] Platelets (Bld) [#/Vol] 233 10*3/uL Normal 150-400 [facility] Comment on above: Order Comment: Speci men Type: BLOOD SPECIMEN Ordering Facility: [facility] Address: [address] [place] [address] Performed By: #### H CG #### [facility] CLIA [id number] [address] [place] [address] [place] RBC (Bld) [#/Vol] 3.88 10*6/uL Low 3.90-5.20 [facility] Comment on above: Order Comment: Speci men Type: BLOOD SPECIMEN Ordering Facility: [facility] Address: [address] [place] [address] Performed By: #### H CG #### [facility] CLIA [id number] [address] [place] [address] [place] WBC (Bld) [#/Vol] 4.71 10*3/uL Normal 3.70-11.00 [facility] Comment on above: Order Comment: Speci men Type: BLOOD SPECIMEN Ordering Facility: [facility] Address: [address] [place] [address] Performed By: #### H CG #### [facility] CLIA [id number] [address] [place] [address] [place] CNOVon 06-18-2023 CNOV Normal [facility] CT ABD/PEL W IVCONon 024 CT ABD/PEL W IVCON * * *Final Report* * * DATE OF EXAM: Jun 18 2023 2:07PM [facility]VC 0530 - CT ABD/PEL W IVCON / PROCEDURE REASON: Nausea/vomiting * * * * Physician Interpretation * * * * EXAMINATION: CT ABDOMEN AND PELVIS WITH IV CONTRAST CLINICAL HISTORY: History of bariatric surgery, cholecystectomy, MALs surgery Persistent left uppe r quadrant abdominal pain. Positive vomiting and vomiting with eating. J-tube. TECHNIQUE: CT of the abdomen and pelvis was performed using standard technique, scanning from just above the dome of the diaphragm to the symphysis pubis. MQ: CTAP_3 Contrast: IV: 100 ml of Omnipaque 350 : ml of CT Radiation dose: Integrated Dose-length product (DLP) for this visit = 786 mGy*cm. CT Dose Reduction Employed: Automated exposure control (AEC) COMPARISON: CT abdomen pelvis with contrast 06/06/2023, 11/22/2022 RESULT: Liver: No change. Numerous cysts Biliary: Cholecystectomy. Nonprogressive mild intrahepatic central biliary ductal dilatation compared to 12/04/2022. Spleen: No mass. Chronic mild splenomegaly, axial dimension today 14 cm compared to 13 cm 12/04/2022 Pancreas: No mass or duct dilation. Adrenals: No mass. Kidneys: No mass, calculus or hydronephrosis. GI tract: Preexistent bariatric surgery and percutaneous jejunostomy. More fluid colonic contents today including semisolid rectosigmoid contents. Unremarkable bowel wall thickness. Appendix not identified. Chronic borderline to mildly distended proximal left upper quadrant jejunal loops about the surgical suture. Pattern does not appear obstructive. Percutaneous jejunostomy balloon in close apposition with the abdominal wall. Lymph nodes: No significant change compared to 11/22/2022, no new or progressive adenopathy Mesentery/Peritoneu m: Trace ascites right lower quadrant adjacent to the overdistended urinary bladder. Trace ascites pelvis also present 06/06/2023. Retroperitoneum: No mass. Vasculature: Patent central vessels Pelvis: Trace simple-appearing ascites also present 06/06/2023, less volume than 11/22/2022. Uterus absent. Severely overdistended urinary bladder, volume approximately 1100 mL. Bones/Soft Tissues: No acute osseous abnormality. Unremarkable laparotomy. Unremarkable left upper abdominal percutaneous jejunostomy site. Lower thorax: No acute findings Localizer images: Frontal and lateral images. Similarly moderately abundant bowel gas including colonic and small bowel and including rectosigmoid. Nonspecific pattern. No evident consolidations imaged chest. Multiple external devices and artifacts. IMPRESSION: 1. Severe overdistention urinary bladder, volume approximately 1100 mL. 2. Preexistent bariatric surgery and percutaneous jejunostomy. Catheter site unremarkable, the jejunostomy balloon in close apposition to the inner abdominal wall 3. No evident bowel obstruction or inflammatory wall thickening. More liquid colonic contents including semisolid contents rectosigmoid may indicate mild enteritis. 4. Chronic mild splenomegaly 5. Trace ascites, also present on previous exams F[facility] Att[facility] Transcribe Date/Time: Jun 18 2023 3:00P Dictated by : KYLE HERNANDEZ MD This examination was interpreted and the report reviewed and electronically signed by: KYLE HERNANDEZ MD on Jun 18 2023 3:30PM EST [id number] Normal [facility] Comprehensive metabolic 2000 panelon 06-18-2023 Albumin [Mass/Vol] 4.5 g/dL Normal 3.9-4.9 [facility] Comment on above: Order Comment: Speci men Type: BLOOD SPECIMENOrdering Facility: [facility] Address: [address] [place] [address] Performed By: #### 3 040-3, , ####[facility] [id number] [place] [address] [place] ALP [Catalytic activity/Vol] 58 U/L Normal 34-123 [facility] Comment on above: Order Comment: Speci men Type: BLOOD SPECIMENOrdering Facility: [facility] Address: [address] [place] [address] Performed By: #### 3 040-3, , ####[facility] [id number] [place] [id number] [place] ALT [Catalytic activity/Vol] 13 U/L Normal 7-38 [facility] Comment on above: Order Comment: Speci men Type: BLOOD SPECIMENOrdering Facility: [facility] Address: [address] [place] [address] Performed By: #### 3 040-3, , ####[facility] [id number] [place] [id number] [place] Anion gap [Moles/Vol] 13 mmol/L Normal 9-18 [facility] Comment on above: Order Comment: Speci men Type: BLOOD SPECIMENOrdering Facility: [facility] Address: [address] [place] [address] Performed By: #### 3 040-3, , ####[facility] [id number] [place] [address] [place] AST [Catalytic activity/Vol] 31 U/L Normal 13-35 [facility] Comment on above: Order Comment: Speci men Type: BLOOD SPECIMENOrdering Facility: [facility] Address: [address] [place] [address] Performed By: #### 3 040-3, , ####[facility] [id number] [place] [address] [place] Bilirubin [Mass/Vol] 0.4 mg/dL Normal 0.2-1.3 [facility] Comment on above: Order Comment: Speci men Type: BLOOD SPECIMENOrdering Facility: [facility] Address: [address] [place] [address] Performed By: #### 3 040-3, , ####[facility] [id number] [place] [id number] [place] Calcium [Mass/Vol] 9.0 mg/dL Normal 8.5-10.2 [facility] Comment on above: Order Comment: Speci men Type: BLOOD SPECIMENOrdering Facility: [facility] Address: [address] [place] [address] Performed By: #### 3 040-3, , ####[facility] [id number] [place] [id number] [place] Chloride [Moles/Vol] 103 mmol/L Normal 97-105 [facility] Comment on above: Order Comment: Speci men Type: BLOOD SPECIMENOrdering Facility: [facility] Address: [address] [place] [address] Performed By: #### 3 040-3, , ####[facility] [id number] [place] [address] [place] CO2 [Moles/Vol] 22 mmol/L Normal 22-30 [facility] Comment on above: Order Comment: Speci men Type: BLOOD SPECIMENOrdering Facility: [facility] Address: [address] [place] [address] Performed By: #### 3 040-3, , ####[facility] [id number] [place] [id number] [place] [facility] Creatinine [Mass/Vol] 0.83 mg/dL Normal 0.58-0.96 [facility] Comment on above: Order Comment: Geraldo marrero Type: BLOOD SPECIMENOrdering Facility: [facility] Address: [address] [place] [address] Performed By: #### 3 040-3, 38658-1, ####ELLIS LABORATORYCLIA [id number] [place] [address] [facility] Creatinine and Glomerular filtration rate.predicted panel (S/P/Bld) 95 mL/min/1.73m??? Normal >=60 [facility] Comment on above: Order Comment: Geraldo marrero Type: BLOOD SPECIMENOrdering Facility: [facility] Address: [address] [place] [address] Result Comment: Jessica mated Glomerular Filtration Rate (eGFR) is calculated [...] actual GFR. Performed By: #### 3 040-3, , ####ELLIS LABORATORYCLIA [id number] [place] [address] [place] Glucose [Mass/Vol] 77 mg/dL Normal 74-99 [facility] Comment on above: Order Comment: Geraldo marrero Type: BLOOD SPECIMENOrdering Facility: [facility] Address: [address] [place] [address] Result Comment: The [place] [employer] Association (ADA) provides guidance for cutoff [...] Standards of Medical Care in Diabetes 2016, [place] [employer]. Diabetes Care. 2016.39(Suppl 1). Performed By: #### 3 040-3, , ####OSVALDO LABORATORYCLIA [id number] [place] [address] [place] Potassium [Moles/Vol] 3.4 mmol/L Low 3.7-5.1 [facility] Comment on above: Order Comment: Speci men Type: BLOOD SPECIMENOrdering Facility: [facility] Address: [address] [place] [address] Performed By: #### 3 040-3, , ####OSVALDO LABORATORYCLIA [id number] [place] [address] [place] Protein [Mass/Vol] 7.6 g/dL Normal 6.3-8.0 [facility] Comment on above: Order Comment: Speci men Type: BLOOD SPECIMENOrdering Facility: [facility] Address: [address] [place] [address] Performed By: #### 3 040-3, , ####OSVALDO LABORATORYCLIA [id number] [place] [address] [place] Sodium [Moles/Vol] 138 mmol/L Normal 136-144 [facility] Comment on above: Order Comment: Speci men Type: BLOOD SPECIMENOrdering Facility: [facility] Address: [address] [place] [address] Performed By: #### 3 040-3, , ####OSVALDO LABORATORYCLIA [id number] [place] [address] [place] Urea nitrogen [Mass/Vol] 12 mg/dL Normal 7-21 [facility] Comment on above: Order Comment: Speci men Type: BLOOD SPECIMENOrdering Facility: [facility] Address: [address] [place] [address] Performed By: #### 3 040-3, 51652-0, 23987-4 ####ELLIS LABORATORYCLIA [id number] [address] ECG COMPLETEon 06-18-2023 ECG COMPLETE Ventricular Rate : 71 BPM Atrial Rate : 71 BPM P-R Interval : 153 ms QRS Duration : 85 ms Q-T Interval : 429 ms QTC Calculation(Bazett) : 467 ms Calculated P Pompeii : 72 degrees Calculated R Pompeii : 73 degrees Calculated T Pompeii : 43 degrees Sinus rhythm Normal ECG 1220 Confirmed by DO HAMM CHRISTOPHER ([id number]), medical transcription editor GILBERT CUELLAR ([id number]) on 06/18/2023 1:37:20 PM NAME : ABBEY GARCIA PID : [id number] : 1990 Gender : Female Race : ORD : [id number] Procedure Date : Jun 18 2023 12:17:53 Edit Date : Jun 18 2023 13:37:22 Diagnosis: Sinus rhythm Normal ECG 1220 Confirmed by DO HAMM CHRISTOPHER ([id number]), medical transcription editor GILBERT CUELLAR ([id number]) on 06/18/2023 1:37:20 PM Test Reason : Chest Pain Location : 402 : [facility] fved20 Overread By : DO HAMM CHRISTOPHER Edited By : GILBERT CUELLAR Referred By : , Acquired by : [id number], [facility] ED NOTEon 06-18-2023 ED NOTE HNO ID: [id number] Author: HIEU HERNANDEZ RN Service: ? Author Type: Registered Nurse Type: ED Notes Filed: 06/18/2023 19:05 Note Text: Patient verbalized understanding of discharge instructions and follow up care. [facility] ED NOTE HNO ID: [id number] Author: HIEU HERNANDEZ RN Service: ? Author Type: Registered Nurse Type: ED Notes Filed: 06/18/2023 18:38 Note Text: Long catheter with leg bag inserted and orange juice given via peg tube given per Earnest INMAN verbal order. [facility] ED PROV NOTEon 06-18-2023 ED PROV NOTE HNO ID: [id number] Author: EARNEST MARTINEZ PA-C Service: Emergency Medicine Author Type: Physician Driver Salesman Type: ED Provider Notes Filed: 06/18/2023 17:55 Note Text: ED Provider Note Patient Name: Abbey Garcia : 1990 SERVICE DATE: 06/18/23 History Patient presents with: Sent By Md: States sent by surgery team d/t to swelling to abd. Hx of peg placement on 05/24. States pain comes and goes around site. Pt reports lower back pain starting three days. +chills at home. +nausea. States had bowl incontinence this morning. Low Blood Sugar: Reports low blood sugar at home. 33-year-old female, history of cholecystectomy, gastric sleeve bariatric surgery (2020), gastric bypass (2021), MALS surgery (2023) - here for persistent, 8/10 in intensity, sharp/stabbing left upper quadrant abdominal pain, worse with eating. Patient states after her surgeries she still had a lot of pain, nausea and vomiting with eating. She then had a J-tube placed May 25, 2023. States she is using the J-tube approximately 18 hours out of the day. Trying to tolerate p.o.'s the rest of the time, but still developing severe epigastric/upper quadrant abdominal pain, nausea and vomiting with eating or drinking fluids. States secondary to unable to tolerate p.o.'s her blood sugars been dropping. Patient was admitted last month, 06/05- for similar abdominal pain. He had a follow-up appointment in surgery clinic, sent here to the ED for evaluation. PAST MEDICAL HISTORY Diagnosis Date Anemia Takes Pro FE daily. Arthritis Asthma Chronic nausea 09/25/2019 Class 1 obesity without serious comorbidity with [...] 08/2020 gastric sleeve PICC LINE INSERT/CONSULT 12/24/2020 UNLISTED PROCEDURE, ABDOMEN, MUSCULOSKELE N/A 03/05/2023 Median arcuate ligament release by LAPAROTOMY VAGINAL DELIVERY AFTER DELIVERY Three C-sections FAMILY [...] and itchy. Codeine GI Upset Nsaids (Non-Steroid* Contraindication-Me dical Surgical S/p RYGB Review of Systems Constitutional: Negative for chills and fever. HENT: Negative for facial swelling. Respiratory: Negative for shortness of breath. Cardiovascular: Negative for chest pain. Gastrointestinal: Positive for abdominal pain, nausea and vomiting. Genitourinary: Negative for dysuria. Musculoskeletal: Negative for myalgias. Skin: Negative for rash. Neurological: Negative for headaches. Psychiatric/Behavio ral: The patient is not nervous/anxious. Physical Exam Vitals BP Pulse Temp Temp src Resp SpO2 Weight Height 06/18/23 1038 06/18/23 1038 06/18/23 1038 06/18/23 1038 06/18/23 1038 06/18/23 1038 06/18/23 1036 06/18/23 1036 156/90 77 37.2 ?C (99 ?F) Oral 16 98 % 77.1 kg (170 lb) 1.651 m (5' 5 ) Physical Exam Vital signs and Nursing notes were reviewed Gen Appearance: Patient is alert and oriented and in minimal acute distress. Neck: Supple, Trach/Thyroid normal EENT: PERRLA, EOMI, Conjunctivae normal. Skin: Warm and dry with no rash. Cardiovascular: Heart RRR, no gallops or rubs, no aorta enlargement or bruit noted. Respiratory: Lungs clear, no wheezing, no rales, normal breath sounds. Gastrointestinal: Positive bowel sounds, soft, flat, left upper quadrant J-tube in place, with some surrounding tenderness, no rebound or guarding. Musculoskeletal: No tenderness to extremities, No back or hip pain. Neurological: Pt is alert and oriented x 3, memory intact, no focal motor or sensory deficits noted. Diagnostic Testing ED Labs Ordered and Reviewed - No data to display Procedures ED Course / Clinical Impression ED Course as of 06/18/23 1750 Others' Documentation Fr (more content not included)... Normal [facility] EKGon 06-18-2023 Electrocardiogram Ventricular Rate : 74 BPM Atrial Rate : 73 BPM P-R Interval : 154 ms QRS Duration : 89 ms Q-T Interval : 420 ms QTC Calculation(Bazett) : 466 ms Calculated P Pompeii : 73 degrees Calculated R Pompeii : 77 degrees Calculated T Pompeii : 48 degrees Sinus rhythm Normal ECG 1315 Confirmed by DO HAMM CHRISTOPHER ([id number]), medical transcription editor GILBERT CUELLAR ([id number]) on 06/18/2023 1:36:54 PM NAME : ABBEY GARCIA PID : [id number] : 1990 Gender : Female Race : ORD : Procedure Date : Jun 18 2023 13:08:24 Edit Date : Jun 18 2023 13:36:56 Diagnosis: Sinus rhythm Normal ECG 1315 Confirmed by DO HAMM CHRISTOPHER ([id number]), medical transcription editor GILBERT CUELLAR ([id number]) on 06/18/2023 1:36:54 PM Test Reason : Location : 402 : [facility] fved20 Overread By : DO HAMM CHRISTOPHER Edited By : GILBERT CUELLAR Referred By : , Acquired by : [id number], Normal [facility] HCG QUALITATIVEon 06-18-2023 HCG, QUALITATIVE Negative Normal Negative [facility] Comment on above: Order Comment: Speci men Type: BLOOD SPECIMEN [facility] Address: [address] [place] [address] Performed By: #### H #### [facility] CLIA [id number] [address] [place] [address] [place] Lipase SerPl-cCncon 06-18-19 24 Lipase [Catalytic activity/Vol] 31 U/L Normal 16-61 [facility] Comment on above: Order Comment: Speci men Type: BLOOD SPECIMENOrdering Facility: [facility] Address: [address] [place] [address] Performed By: #### 3 040-3, 28241-0, 08827-9 ####ELLIS LABORATORYCLIA [id number] [place] [address] [place] Magnesium SerPl-mCncon 06-17 Magnesium [Mass/Vol] 2.0 mg/dL Normal 1.7-2.3 [facility] Comment on above: Order Comment: Speci men Type: BLOOD SPECIMENOrdering Facility: [facility] Address: [address] [place] [address] Performed By: #### 3 040-3, 29920-3, 91289-8 ####ELLIS LABORATORYCLIA [id number] [place] [address] [place] Urinalysis complete panel (U )on 06-18-2023 Bacteria LM.HPF (Urine sed) [#/Area] Rare Abnormal None Seen [facility] Comment on above: Order Comment: Speci men Type: BLOOD SPECIMEN [facility] Address: [address] [place] [address] Performed By: #### 5 7021-8 #### [facility] CLIA [id number] [address] [place] [address] [place] Bilirubin Ql (U) Negative Normal Negative [facility] Comment on above: Order Comment: Speci men Type: BLOOD SPECIMEN [facility] Address: [address] [place] [address] Performed By: #### 5 7021-8 #### [facility] CLIA [id number] [address] [place] [address] [place] Clarity (Unsp spec) Clear Normal Clear [facility] Comment on above: Order Comment: Speci men Type: BLOOD SPECIMEN [facility] Address: [address] [place] [address] Performed By: #### 5 7021-8 #### [facility] CLIA [id number] [address] [place] [address] [place] Color (U) Light Yellow Normal Yellow [facility] Comment on above: Order Comment: Speci men Type: BLOOD SPECIMEN [facility] Address: [address] [place] [address] Performed By: #### 5 7021-8 #### [facility] CLIA [id number] [address] [place] [address] [place] Epithelial cells LM.HPF (Urine sed) [#/Area] Few Normal [facility] Comment on above: Order Comment: Speci men Type: BLOOD SPECIMEN [facility] Address: [address] [place] [address] Performed By: #### 5 7021-8 #### [facility] CLIA [id number] [address] [place] [address] [place] Glucose Test strip (U) [Mass/Vol] Negative Normal Trace, Negative [facility] Comment on above: Order Comment: Speci men Type: BLOOD SPECIMEN [facility] Address: [address] [place] [address] Performed By: #### 5 7021-8 #### [facility] CLIA [id number] [address] [place] [address] [place] Hemoglobin Ql (U) Negative Normal Negative, Trace [facility] Comment on above: Order Comment: Speci men Type: BLOOD SPECIMEN [facility] Address: [address] [place] [address] Performed By: #### 5 7021-8 #### [facility] CLIA [id number] [address] [place] [address] [place] Ketones Ql (U) Negative Normal Negative, Trace [facility] Comment on above: Order Comment: Speci men Type: BLOOD SPECIMEN [facility] Address: [address] [place] [address] Performed By: #### 5 7021-8 #### [facility] CLIA [id number] [address] [place] [address] [place] Leukocyte esterase Test strip Ql (U) Negative Normal Negative, 25 Patito/uL [facility] Comment on above: Order Comment: Speci men Type: BLOOD SPECIMEN [facility] Address: [address] [place] [address] Performed By: #### 5 7021-8 #### [facility] CLIA [id number] [address] [place] [address] [place] Nitrite Ql (U) Negative Normal Negative [facility] Comment on above: Order Comment: Speci men Type: BLOOD SPECIMEN [facility] Address: [address] [place] [address] Performed By: #### 5 7021-8 #### [facility] CLIA [id number] [address] [place] [address] [place] pH (U) 7.5 [pH] Normal 5.0-8.0 [facility] Comment on above: Order Comment: Speci men Type: BLOOD SPECIMEN [facility] Address: [address] [place] [address] Performed By: #### 5 7021-8 #### [facility] CLIA [id number] [address] [place] [address] [place] Protein (U) [Mass/Vol] Negative Normal Trace, Negative [facility] Comment on above: Order Comment: Speci men Type: BLOOD SPECIMEN [facility] Address: [address] [place] [address] Performed By: #### 5 7021-8 #### [facility] CLIA [id number] [address] [place] [address] [place] RBC LM.HPF (Urine sed) [#/Area] 0-3 /HPF Normal 0-3 /HPF [facility] Comment on above: Order Comment: Speci men Type: BLOOD SPECIMEN [facility] Address: [address] [place] [address] Performed By: #### 5 7021-8 #### [facility] CLIA [id number] [address] [place] [address] [place] Specific gravity (U) [Rel density] 1.009 Normal 1.005-1.030 [facility] Comment on above: Order Comment: Speci men Type: BLOOD SPECIMEN [facility] Address: [address] [place] [address] Performed By: #### 5 7021-8 #### [facility] CLIA [id number] [address] [place] [address] [place] Urobilinogen Ql (U) Normal Normal Normal [facility] Comment on above: Order Comment: Speci men Type: BLOOD SPECIMEN [facility] Address: [address] [place] [address] Performed By: #### 5 7021-8 #### [facility] CLIA [id number] [address] [place] [address] [place] WBC LM.HPF (Urine sed) [#/Area] 0-5 /HPF Normal 0-5 /HPF [facility] Comment on above: Order Comment: Speci men Type: BLOOD SPECIMEN [facility] Address: [address] [place] [address] Performed By: #### 5 7021-8 #### [facility] CLIA [id number] [address] [place] [address] [place] CNPNon 06-17-2023 CNPN Normal [facility] Home Health Recordson 2023 Home Health Records [id number] B4#1.00TIFF Normal [facility] Physician Referralon 024 Physician Referral [id number] 101#1.00TIFF Normal [facility] Provider Letteron 06-16-2023 Provider Letter Normal [facility] CNPNon 06-15-2023 CNPN Normal [facility] ED Note-Physicianon 06-15-19 24 ED Note-Physician [id number] D0#1.00TIFF Normal [facility] Outside Hospital Correspo ndenceon 06-15-2023 Outside [facility] Correspondence [id number] A2#1.00TIFF Normal [facility] Physician Referralon 024 Physician Referral [id number] 38#1.00TIFF Normal [facility] RAD - CT Reporton 06-15-2023 RAD - CT Report [id number] F9#1.00TIFF Normal [facility] Transfer Inon 06-15-2023 Transfer In [id number] 80#1.00TIFF Normal [facility] Ambulatory Visit Summaryon 0 06-14-2023 Ambulatory Visit Summary Normal [address] [place] [address]- \.br\ Medications\.br\ What How Much When Why Instructions\.br\ Unchanged acetaminophen 325 Milligram By Mouth Every 4 hours as needed for as needed for pain\.br\ Unchanged albuterol (Albuterol (Eqv-Ventolin HFA) 90 mcg/ inh inhalation aerosol) 2 Puffs Inhalation Every 6 hours\.br\ Unchanged busPIRone 10 Milligram By Mouth 3 times a day\.br\ Unchanged docusate (Colace) 100 Milligram By Mouth 2 times a day as needed for as needed for constipation\.br\ Unchanged escitalopram (escitalopram 20 mg Tab) 1 Tablets By Mouth Every day\.br\ Unchanged fluticasone-salmete rol (Advair Diskus 100 mcg-50 mcg inhalation powder) See instructions Bronchitis Take 1 puff 2x daily. \.br\ Unchanged levothyroxine (levothyroxine 75 mcg (0.075 mg) Tab) 1 Tablets By Mouth Every day\.br\ Unchanged linaclotide (Linzess 290 mcg oral capsule) 1 Capsules Every day\.br\ Unchanged liothyronine (liothyronine 5 mcg Tab) 5 Microgram By Mouth Every day\.br\ Unchanged methocarbamol (Robaxin-750 oral tablet) 1 Tablets By Mouth 2 times a day\.br\ Unchanged metoclopramide (metoclopramide 10 mg Tab) 1 Tablets By Mouth 4 times a day\.br\ Unchanged mirtazapine 30 Milligram By Mouth Once a day (at bedtime)\.br\ Unchanged Misc Prescription 0\.br\ Unchanged nystatin 100,000 Units Oral-Swish &Swallow 4 times a day Duration: 23 Doses\.br\ Unchanged ondansetron (Zofran 4 mg Tab) 1 Tablets By Mouth Every 6 hours as needed for Nausea Take one tab by mouth every six hours as needed for nausea \.br\ Unchanged pantoprazole (Pantoprazole [address] Tab) 1 Tablets By Mouth Every day\.br\ Unchanged topiramate (topiramate 100 mg Tab) See instructions TAKE 1 TABLET BY MOUTH TWICE A DAY \.br\ Unchanged tramadol 50 Milligram By Mouth Every 4 hours as needed for as needed for pain\.br\ Allergies\.br\ NSAIDs (Unknown)\.br\ codeine (unknown)\.br\ Problems\.br\ Ongoing - Any problem that you are currently receiving treatment for.\.br\ Abnormal thyroid blood test\.br\ Arthritis\.br\ Asthma\.br\ BMI 30.0-30.9,adult\.br \ Bronchitis\.br\ Depression\.br\ Dysfunction of sphincter of Oddi\.br\ Fatigue\.br\ Gall stone\.br\ Gastroparesis\.br\ Hyperthyroidism\.br \ Hypothyroid\.br\ Kidney cysts\.br\ Kidney stone\.br\ LUQ pain\.br\ Malnourished\.br\ Median arcuate ligament syndrome\.br\ Mixed incontinence urge and stress\.br\ Nausea\.br\ Otitis media of left ear\.br\ Rash of body\.br\ Renal cyst\.br\ Right flank pain\.br\ S/P percutaneous endoscopic gastrostomy (PEG) tube placement\.br\ Status post surgery\.br\ Historical - Any problem that you are no longer receiving treatment for.\.br\ Allergic rhinitis\.br\ Anemia\.br\ Hypothyroidism\.br\ Median arcuate ligament syndrome\.br\ Metabolic syndrome\.br\ PCOS- polycystic ovary syndrome\.br\ Patient Survey\.br\ You may receive a survey via text or e-mail asking about your office visit. Please share your experience with us by completing your survey. We appreciate your feedback and thank you for choosing us for your care.\.br\ \.br\ Salvador [facility] Auth for Release of Medical Recordson 06-14-2023 Auth for Release of Medical Records [id number] E3#1.00TIFF Prabhakar [facility] CNPNon 06-14-2023 CNPN Telephone (FVPRAD) ---- ABBEY GARCIA ([id number]) 1990 F CHT Date Time Provider Department 06/14/23 STEPHANIE SUMNER FVPRADu During your visit today, we recorded the following information about you: Stephanie Sumner DO 06/14/2023 4:44 PM Signed Hospital Medicine Transfer Received page for transfer request from [facility] to [place]: Wolf Lakelesia Garcia is 33 year old female who presented with nausea, vomiting and worsening LUQ pain. Pt has complicated gastric surgery history and is currently doing TF via PEG for nutrition. Per [place] [facility] pt is HDS and electrolytes are stable. Pt is requesting transfer to because that is where her care team is and states she only went to [facility] because they have short wait times. ED team gave IVF and IV pain meds which improved LUQ pain somewhat. Pts notified Dr Kat that she was going to ED. Reason for transfer: continuity of care Accepted to hospital medicine service at [place] Stephanie Sumner DO 4:39 PM Allergies As of Date: 06/14/2023 Noted Allergy Reaction ADHESIVE TAPE-SILICONES 02/07/2020 5 - Intolerance Comments: Sensitive to certain adhesive tapes. Redness and itchy. CODEINE 10/04/2019 8 - GI Upset NSAIDS (NON-STEROIDAL ANTI-INFLAM* 022 15 - Contraindication-Oh dical Nance* Comments: S/p RYGB Date Reviewed: 06/09/2023 Reviewed by: Nupur Mccall, RN - Fully Assessed Prescriptions as of 06/14/2023 - acetaminophen (TYLENOL) 325 mg tablet Take 2 tablets by mouth every 4 hours as needed for pain. - busPIRone (BUSPAR) 10 mg tablet Take 1 tablet by mouth three times a day. - nystatin (MYCOSTATIN) 100,000 units/mL oral liquid Take 5 mL by mouth four times daily for 23 doses. Swish and swallow. - docusate sodium (COLACE) 100 mg capsule Take 1 capsule by mouth two times a day as needed for constipation. - polyethylene glycol 3350 (MIRALAX) 17 gram/dose powder Take 17 g by mouth once daily as needed for constipation. - traMADol (ULTRAM) 50 mg tablet Take 1 tablet by mouth every 4 hours as needed for pain for up to 7 days. - levothyroxine (SYNTHROID) 75 mcg tablet Take 1 tablet by mouth once daily. - nutritional supplements (NUTREN 2.0) 0.08 gram-2 kcal/mL liqd 45 mL/hr by FEEDING TUBE route continuous infusion starting at 6 pm. Plus 180cc q 4h water flushes. - mirtazapine (REMERON) 30 mg tablet Take 1 tablet by mouth daily at bedtime. - hydrOXYzine HCl (ATARAX) 25 mg tablet Take 1 tablet by mouth two times a day as needed for anxiety. - ketamine 5% nasal spray solution (CPD) 0.1 mL/spray. Use as directed. 1 spray by nose twice per day x 3 days, then increase to 2 sprays by nose twice per day if tolerated. Added volume to account for dispenser loss. Physician office visit required for refill. - methocarbamol (ROBAXIN) 500 mg tablet Take 1.5 tablets (750mg) by mouth three times a day. - ondansetron (ZOFRAN) 4 mg tablet Take 1 tablet by mouth every 8 hours as needed for nausea/vomiting. - escitalopram oxalate (LEXAPRO) 20 mg tablet take 1 tablet daily - albuterol HFA (PROVENTIL HFA, VENTOLIN HFA) 90 mcg/actuation inhaler Inhale 2 Puffs as instructed every 4 hours as needed for wheezing/shortness of breath. - fluticasone-salmete rol (ADVAIR DISKUS) 100-50 mcg/dose inhaler Inhale 1 Puff as instructed every 12 hours. - pantoprazole (PROTONIX) 40 mg grps Take 40 mg by mouth daily before breakfast. - metoclopramide HCl (REGLAN) 5 mg tablet Take 5 mg by mouth before meals and at bedtime. - topiramate (TOPAMAX) 100 mg tablet Take 100 mg by mouth two times a day. - liothyronine (CYTOMEL) 5 mcg tablet Take 5 mcg by mouth once daily. Problem List As Of Date 06/14/2023 Noted Resolved Nausea [R11.0] 09/25/2019 Regurgitation of food [R11.10] 09/25/2019 [...] 02/01/2020 04/08/2020 Intractable upper abdominal pain [R10.10] 0 (more content not included)... Normal [facility] Family Medicine Office/Clini c Noteon 06-14-2023 Family Medicine Office/Clinic Note Normal [facility] Comment on above: Result Comment: Elec tronically Signed By: Jaquan Paula\.br\Date and Time Signed: 06/14/23 13:22 EDT Reminderson 06-14-2023 Reminders Normal [facility] Home Health Recordson 2023 Home Health Records [id number] E4#1.00TIFF Normal [facility] Population Healthon 06-11-19 Population Health Normal [facility] Home Health Recordson 2023 Home Health Records [id number] 22#1.00TIFF Normal [facility] Retail - Clinical Noteon Retail - Clinical Note [id number] F2#1.00TIFF Normal [facility] ALLIED HEALTHon 06-09-2023 ALLIED HEALTH Normal [facility] Basic metabolic 2000 panelon 06-09-2023 Anion gap [Moles/Vol] 7 mmol/L Low 9-18 [facility] Comment on above: Order Comment: Speci men Type: BLOOD SPECIMENOrdering Facility: [facility] Address: [address] [place] [address] Performed By: #### 2 4321-2 ####[facility] LABORATORYCLIA [id number] [place] [address] [place] Calcium [Mass/Vol] 8.6 mg/dL Normal 8.5-10.2 [facility]spital Comment on above: Order Comment: Speci men Type: BLOOD SPECIMENOrdering Facility: [facility] Address: [address] [place] [address] Performed By: #### 2 4321-2 ####[facility] LABORATORYCLIA [id number] [place] [address] [place] Chloride [Moles/Vol] 107 mmol/L High 97-105 [facility] Comment on above: Order Comment: Speci men Type: BLOOD SPECIMENOrdering Facility: [facility] Address: [address] [place] [address] Performed By: #### 2 4321-2 ####[facility] LABORATORYCLIA [id number] [facility] [place] [place] [address] [place] CO2 [Moles/Vol] 24 mmol/L Normal 22-30 [facility] Comment on above: Order Comment: Speci men Type: BLOOD SPECIMENOrdering Facility: [facility] Address: [address] [place] [address] Performed By: #### 2 4321-2 ####[facility] LABORATORYCLIA [id number] [place] [address] [place] Creatinine [Mass/Vol] 0.68 mg/dL Normal 0.58-0.96 [facility] Comment on above: Order Comment: Speci men Type: BLOOD SPECIMENOrdering Facility: [facility] Address: [address] [place] [address] Performed By: #### 2 4321-2 ####[facility] LABORATORYCLIA [id number] [facility] [place] [place] [address] [place] Creatinine and Glomerular filtration rate.predicted panel (S/P/Bld) 117 mL/min/1.73m??? Normal >=60 [facility] Comment on above: Order Comment: Speci men Type: BLOOD SPECIMENOrdering Facility: [facility] Address: [address] [place] [address] Result Comment: Jessica mated Glomerular Filtration Rate (eGFR) is calculated [...] actual GFR. Performed By: #### 2 4321-2 ####[facility] LABORATORYCLIA [id number] [place] [address] [place] Glucose [Mass/Vol] 89 mg/dL Normal 74-99 [facility] Comment on above: Order Comment: Speci men Type: BLOOD SPECIMENOrdering Facility: [facility] Address: [address] [place] [address] Result Comment: The [place] [employer] (ADA) provides guidance for cutoff [...] Standards of Medical Care in Diabetes 2016, [place] [employer]. Diabetes Care. 2016.39(Suppl 1). Performed By: #### 2 4321-2 ####[facility] LABORATORYCLIA [id number] [place] [address] [place] Potassium [Moles/Vol] 4.1 mmol/L Normal 3.7-5.1 [facility] Comment on above: Order Comment: Speci men Type: BLOOD SPECIMENOrdering Facility: [facility] Address: [address] [place] [address] Performed By: #### 2 4321-2 ####[facility]PITALIA [id number] [place] [address] [place] Sodium [Moles/Vol] 138 mmol/L Normal 136-144 [facility] Comment on above: Order Comment: Speci men Type: BLOOD SPECIMENOrdering Facility: [facility] Address: [address] [place] [address] Performed By: #### 2 4321-2 ####[facility] LABORATORYCLIA [id number] [place] [address] [place] Urea nitrogen [Mass/Vol] 10 mg/dL Normal 7-21 [facility] Comment on above: Order Comment: Speci men Type: BLOOD SPECIMENOrdering Facility: [facility] Address: [address] [place] [address] Performed By: #### 2 4321-2 ####[facility]ORATORYCLIA [id number] [place] [address] [place] CASE MANAGEMon 06-09-2023 CASE MANAGEM Normal [facility] CNDSon 06-09-2023 CNDS Normal [facility] CONSULT PROGon 06-08-2023 CONSULT PROG Normal [facility] TOXICOLOGY SCREEN, ROUTINE U RINEon 06-08-2023 Amphetamines Confirm (U) [Mass/Vol] Negative Normal Negative [facility] Comment on above: Order Comment: Speci men Type: URINE SPECIMENOrdering Facility: [facility] Address: [address] [place] [address] Result Comment: Cuto ff threshold at 1000 ng/mL. Performed By: #### U TOX2 ####[facility] LABORATORYCLIA [id number] [place] [address] [place] BARBITURATES, URINE Negative Normal Negative [facility] Comment on above: Order Comment: Speci men Type: URINE SPECIMENOrdering Facility: [facility] Address: [address] [place] [address] Result Comment: Cuto ff threshold at 200 ng/mL. Performed By: #### U TOX2 ####[facility] LABORATORYCLIA [id number] [place] [address] [place] BENZODIAZEPINES, UR Negative Normal Negative [facility] Comment on above: Order Comment: Speci men Type: URINE SPECIMENOrdering Facility: [facility] Address: [address] [place] [address] Result Comment: Cuto ff threshold at 200 ng/mL. Performed By: #### U TOX2 ####[facility] LABORATORYCLIA [id number] [place] [address] [place] Cannabinoids Screen Ql (U) Negative Normal Negative [facility] Comment on above: Order Comment: Speci men Type: URINE SPECIMENOrdering Facility: [facility] Address: [address] [place] [address] Result Comment: Cuto ff threshold at 50 ng/mL. Performed By: #### U TOX2 ####[facility] LABORATORYCLIA [id number] [place] [id number] [place] Cocaine Ql (U) Negative Normal Negative [facility] Comment on above: Order Comment: Speci men Type: URINE SPECIMENOrdering Facility: [facility] Address: [address] [place] [address] Result Comment: Cuto ff threshold at 300 ng/mL. Performed By: #### U TOX2 ####[facility]PITALIA [id number] [place] [address] [place] Ethanol (U) [Mass/Vol] <11 Normal <11 [facility] Comment on above: Order Comment: Speci men Type: URINE SPECIMENOrdering Facility: [facility] Address: [address] [place] [address] Performed By: #### U TOX2 ####[facility]PITALIA [id number] [place] [address] [place] Opiates Screen Ql (U) Negative Normal Negative [facility] Comment on above: Order Comment: Speci men Type: URINE SPECIMENOrdering Facility: [facility] Address: [address] [place] [address] Result Comment: Cuto ff threshold at 300 ng/mL. Performed By: #### U TOX2 ####[facility]PITALIA [id number] [place] [address] [place] oxyCODONE cutoff Screen (U) [Mass/Vol] Negative Normal Negative [facility] Comment on above: Order Comment: Speci men Type: URINE SPECIMENOrdering Facility: [facility] Address: [address] [place] [address] Result Comment: Cuto ff threshold at 100 ng/mL. Performed By: #### U TOX2 ####[facility]OSPITALIA [id number] [place] [address] [place] Phencyclidine Ql (U) Negative Normal Negative [facility] Comment on above: Order Comment: Speci men Type: URINE SPECIMENOrdering Facility: [facility] Address: [address] [place] [address] Result Comment: Cuto ff threshold at 25 ng/mL. Performed By: #### U TOX2 ####[facility]ORATORYCLIA [id number] [place] [address] [place] Basic metabolic 2000 panelon 06-07-2023 Anion gap [Moles/Vol] 9 mmol/L Normal 9-18 [facility] Comment on above: Order Comment: Speci men Type: BLOOD SPECIMENOrdering Facility: [facility] Address: [address] [place] [address] Performed By: #### 2 4321-2 ####[facility] LABORATORYIA [id number] [place] [address] [place] Calcium [Mass/Vol] 8.7 mg/dL Normal 8.5-10.2 [facility] ospital Comment on above: Order Comment: Speci men Type: BLOOD SPECIMENOrdering Facility: [facility] Address: [address] [place] [address] Performed By: #### 2 4321-2 ####[facility]PITALIA [id number] [place] [id number] [place] Chloride [Moles/Vol] 108 mmol/L High 97-105 [facility] Comment on above: Order Comment: Speci men Type: BLOOD SPECIMENOrdering Facility: [facility] Address: [address] [place] [address] Performed By: #### 2 4321-2 ####[facility] LABORATORYIA [id number] [place] [address] [place] CO2 [Moles/Vol] 23 mmol/L Normal 22-30 [facility] ital Comment on above: Order Comment: Speci men Type: BLOOD SPECIMENOrdering Facility: [facility] Address: [address] [place] [address] Performed By: #### 2 4321-2 ####[facility] LABORATORYIA [id number] [place] [address] [place] Creatinine [Mass/Vol] 0.68 mg/dL Normal 0.58-0.96 [facility] Comment on above: Order Comment: Speci men Type: BLOOD SPECIMENOrdering Facility: [facility] Address: [address] [place] [address] Performed By: #### 2 4321-2 ####[facility]PITALIA [id number] [place] [address] [place] Creatinine and Glomerular filtration rate.predicted panel (S/P/Bld) 117 mL/min/1.73m??? Normal >=60 [facility] Comment on above: Order Comment: Geraldo marrero Type: BLOOD SPECIMENOrdering Facility: [facility] Address: [address] [place] [address] Result Comment: Jessica mated Glomerular Filtration Rate (eGFR) is calculated [...] actual GFR. Performed By: #### 2 4321-2 ####[facility]PITALIA [id number] [place] [address] [place] Glucose [Mass/Vol] 98 mg/dL Normal 74-99 [facility] Comment on above: Order Comment: Geraldo marrero Type: BLOOD SPECIMENOrdering Facility: [facility] Address: [address] [place] [address] Result Comment: The [place] Diabetes [employer] (ADA) provides guidance for cutoff [...] Standards of Medical Care in Diabetes 2016, [place] [employer]. Diabetes Care. 2016.39(Suppl 1). Performed By: #### 2 4321-2 ####[facility] LABORATORYIA [id number] [place] [address] [place] Potassium [Moles/Vol] 4.2 mmol/L Normal 3.7-5.1 [facility] Comment on above: Order Comment: Speci men Type: BLOOD SPECIMENOrdering Facility: [facility] Address: [address] [place] [address] Performed By: #### 2 4321-2 ####[facility]ORATORYCLIA [id number] [place] [address] [place] Sodium [Moles/Vol] 140 mmol/L Normal 136-144 [facility]spital Comment on above: Order Comment: Speci men Type: BLOOD SPECIMENOrdering Facility: [facility] Address: [address] [place] [address] Performed By: #### 2 4321-2 ####[facility]ITALIA [id number] [place] [id number] [place] Urea nitrogen [Mass/Vol] 9 mg/dL Normal 7-21 [facility] Comment on above: Order Comment: Speci men Type: BLOOD SPECIMENOrdering Facility: [facility] Address: [address] [place] [address] Performed By: #### 2 4321-2 ####[facility]PITALIA [id number] [place] [address] [place] CASE MGT INIT ASSESon 2023 CASE MGT INIT ASS Normal [facility] CBC panel Auto (Bld)on 06-06 Erythrocyte distribution width (RBC) [Ratio] 13.7 % Normal 11.5-15.0 [facility] Comment on above: Order Comment: Speci men Type: BLOOD SPECIMENOrdering Facility: [facility] Address: [address] [place] [address] Performed By: #### 5 8410-2 ####[facility] LABORATORYIA [id number] [place] [address] [place] Hematocrit (Bld) [Volume fraction] 32.6 % Low 36.0-46.0 [facility] Comment on above: Order Comment: Speci men Type: BLOOD SPECIMENOrdering Facility: [facility] Address: [address] [place] [address] Performed By: #### 5 8410-2 ####[facility]ITALIA [id number] [place] [address] [place] Hemoglobin (Bld) [Mass/Vol] 10.8 g/dL Low 11.5-15.5 [facility] Comment on above: Order Comment: Speci men Type: BLOOD SPECIMENOrdering Facility: [facility] Address: [address] [place] [address] Performed By: #### 5 8410-2 ####[facility]ITALIA [id number] [place] [address] [place] MCH (RBC) [Entitic mass] 29.9 pg Normal 26.0-34.0 [facility] Comment on above: Order Comment: Speci men Type: BLOOD SPECIMENOrdering Facility: [facility] Address: [address] [place] [address] Performed By: #### 5 8410-2 ####[facility] [id number] [place] [address] [place] MCHC (RBC) [Mass/Vol] 33.1 g/dL Normal 30.5-36.0 [facility] Comment on above: Order Comment: Speci men Type: BLOOD SPECIMENOrdering Facility: [facility] Address: [address] [place] [address] Performed By: #### 5 8410-2 ####[facility]ITALIA [id number] [place] [address] [place] MCV (RBC) [Entitic vol] 90.3 fL Normal 80.0-100.0 [facility] Comment on above: Order Comment: Speci men Type: BLOOD SPECIMENOrdering Facility: [facility] Address: [address] [place] [address] Performed By: #### 5 8410-2 ####[facility]ITALIA [id number] [facility] [place] [address] [place] Nucleated RBC (Bld) [#/Vol] 10*3/uL Normal <0.01 [facility] Comment on above: Order Comment: Speci men Type: BLOOD SPECIMENOrdering Facility: [facility] Address: [address] [place] [address] Performed By: #### 5 8410-2 ####[facility] LABORATORYCLIA [id number] [place] [address] [place] Platelet mean volume (Bld) [Entitic vol] 10.5 fL Normal 9.0-12.7 [facility] Comment on above: Order Comment: Speci men Type: BLOOD SPECIMENOrdering Facility: [facility] Address: [address] [place] [address] Performed By: #### 5 8410-2 ####[facility]ORATORYCLIA [id number] [place] [address] [place] Platelets (Bld) [#/Vol] 258 10*3/uL Normal 150-400 [facility] Comment on above: Order Comment: Speci men Type: BLOOD SPECIMENOrdering Facility: [facility] Address: [address] [place] [address] Performed By: #### 5 8410-2 ####[facility]ORATORYCLIA [id number] [place] [address] [place] RBC (Bld) [#/Vol] 3.61 10*6/uL Low 3.90-5.20 [facility] Comment on above: Order Comment: Speci men Type: BLOOD SPECIMENOrdering Facility: [facility] Address: [address] [place] [address] Performed By: #### 5 8410-2 ####[facility]ORATORYCLIA [id number] [place] [address] [place] WBC (Bld) [#/Vol] 3.65 10*3/uL Low 3.70-11.00 [facility] Comment on above: Order Comment: Speci men Type: BLOOD SPECIMENOrdering Facility: [facility] Address: [address] [place] [address] Performed By: #### 5 8410-2 ####[facility]ORATORYIA [id number] [facility] [place] [address] [place] CONSULTon 06-07-2023 CONSULT Normal [facility] CONSULT Normal [facility] HISTORY PHYSICALon HISTORY PHYSICAL Normal [facility] pital NUTRITIONon 06-07-2023 NUTRITION Normal [facility] CBC W Auto Differential pane l (Bld)on 06-06-2023 Basophils (Bld) [#/Vol] 0.05 10*3/uL Normal <0.11 [facility] Comment on above: Order Comment: Speci men Type: BLOOD SPECIMENOrdering Facility: [facility] Address: [address] [place] [address] Performed By: #### 5 7021-8 ####[facility]IA [id number] [place] [address] [place] Basophils/100 WBC (Bld) 1.0 % Normal [facility] Comment on above: Order Comment: Speci men Type: BLOOD SPECIMENOrdering Facility: [facility] Address: [address] [place] [address] Performed By: #### 5 7021-8 ####[facility]ITALIA [id number] [place] [address] [place] Differential cell count method Nom (Bld) Auto Normal [facility] Comment on above: Order Comment: Speci men Type: BLOOD SPECIMENOrdering Facility: [facility] Address: [address] [place] [address] Performed By: #### 5 7021-8 ####[facility]ORATORYIA [id number] [place] [id number] [place] Eosinophils (Bld) [#/Vol] 0.11 10*3/uL Normal <0.46 [facility] Comment on above: Order Comment: Speci men Type: BLOOD SPECIMENOrdering Facility: [facility] Address: [address] [place] [address] Performed By: #### 5 7021-8 ####[facility]ORATORYCLIA [id number] [place] [address] [place] Eosinophils/100 WBC (Bld) 2.2 % Normal [facility] Comment on above: Order Comment: Speci men Type: BLOOD SPECIMENOrdering Facility: [facility] Address: [address] [place] [address] Performed By: #### 5 7021-8 ####[facility]ORATORYIA [id number] [place] [address] [place] Erythrocyte distribution width (RBC) [Ratio] 13.4 % Normal 11.5-15.0 [facility] Comment on above: Order Comment: Speci men Type: BLOOD SPECIMENOrdering Facility: [facility] Address: [address] [place] [address] Performed By: #### 5 7021-8 ####[facility]IA [id number] [place] [address] [place] Hematocrit (Bld) [Volume fraction] 35.9 % Low 36.0-46.0 [facility] Comment on above: Order Comment: Speci men Type: BLOOD SPECIMENOrdering Facility: [facility] Address: [address] [place] [address] Performed By: #### 5 7021-8 ####[facility]ORATORYIA [id number] [place] [address] [place] Hemoglobin (Bld) [Mass/Vol] 12.2 g/dL Normal 11.5-15.5 [facility] Comment on above: Order Comment: Speci men Type: BLOOD SPECIMENOrdering Facility: [facility] Address: [address] [place] [address] Performed By: #### 5 7021-8 ####[facility]ORATORYIA [id number] [place] [id number] [place] Immature granulocytes (Bld) [#/Vol] 10*3/uL Normal <0.10 [facility] Comment on above: Order Comment: Speci men Type: BLOOD SPECIMENOrdering Facility: [facility] Address: [address] [place] [address] Performed By: #### 5 7021-8 ####[facility]IA [id number] [place] [address] [place] Immature granulocytes/100 WBC (Bld) 0.2 % Normal [facility] Comment on above: Order Comment: Speci men Type: BLOOD SPECIMENOrdering Facility: [facility] Address: [address] [place] [address] Performed By: #### 5 7021-8 ####[facility]ORATORYIA [id number] [place] [address] [place] Lymphocytes (Bld) [#/Vol] 1.70 10*3/uL Normal 1.00-4.00 [facility] Comment on above: Order Comment: Speci men Type: BLOOD SPECIMENOrdering Facility: [facility] Address: [address] [place] [address] Performed By: #### 5 7021-8 ####[facility]IA [id number] [place] [address] [place] Lymphocytes/100 WBC (Bld) 33.3 % Normal [facility] Comment on above: Order Comment: Speci men Type: BLOOD SPECIMENOrdering Facility: [facility] Address: [address] [place] [address] Performed By: #### 5 7021-8 ####[facility]ORATORYIA [id number] [place] [id number] [place] MCH (RBC) [Entitic mass] 30.1 pg Normal 26.0-34.0 [facility] Comment on above: Order Comment: Speci men Type: BLOOD SPECIMENOrdering Facility: [facility] Address: [address] [place] [address] Performed By: #### 5 7021-8 ####[facility]ORATORYIA [id number] [place] [address] [place] MCHC (RBC) [Mass/Vol] 34.0 g/dL Normal 30.5-36.0 [facility] Comment on above: Order Comment: Speci men Type: BLOOD SPECIMENOrdering Facility: [facility] Address: [address] [place] [address] Performed By: #### 5 7021-8 ####[facility]ORATORYCLIA [id number] [place] [address] [place] MCV (RBC) [Entitic vol] 88.6 fL Normal 80.0-100.0 [facility] Comment on above: Order Comment: Speci men Type: BLOOD SPECIMENOrdering Facility: [facility] Address: [address] [place] [address] Performed By: #### 5 7021-8 ####[facility]ORATORYCLIA [id number] [place] [address] [place] Monocytes (Bld) [#/Vol] 0.42 10*3/uL Normal <0.87 [facility] Comment on above: Order Comment: Speci men Type: BLOOD SPECIMENOrdering Facility: [facility] Address: [address] [place] [address] Performed By: #### 5 7021-8 ####[facility]ORATORYCLIA [id number] [place] [address] [place] Monocytes/100 WBC (Bld) 8.2 % Normal [facility] Comment on above: Order Comment: Speci men Type: BLOOD SPECIMENOrdering Facility: [facility] Address: [address] [place] [address] Performed By: #### 5 7021-8 ####[facility] LABORATORYCLIA [id number] [facility] [place] [address] [place] Neutrophils (Bld) [#/Vol] 2.81 10*3/uL Normal 1.45-7.50 [facility] Comment on above: Order Comment: Speci men Type: BLOOD SPECIMENOrdering Facility: [facility] Address: [address] [place] [address] Performed By: #### 5 7021-8 ####[facility]ORATORYCLIA [id number] [place] [address] [place] Neutrophils/100 WBC (Bld) 55.1 % Normal [facility] Comment on above: Order Comment: Speci men Type: BLOOD SPECIMENOrdering Facility: [facility] Address: [address] [place] [address] Performed By: #### 5 7021-8 ####[facility]ORATORYCLIA [id number] [place] [address] [place] Nucleated RBC (Bld) [#/Vol] 10*3/uL Normal <0.01 [facility] Comment on above: Order Comment: Speci men Type: BLOOD SPECIMENOrdering Facility: [facility] Address: [address] [place] [address] Performed By: #### 5 7021-8 ####[facility]IA [id number] [place] [id number] [place] Nucleated RBC/100 WBC (Bld) [Ratio] 0.0 /100 WBC Normal [facility] Comment on above: Order Comment: Speci men Type: BLOOD SPECIMENOrdering Facility: [facility] Address: [address] [place] [address] Performed By: #### 5 7021-8 ####[facility]IA [id number] [place] [address] [place] Platelet mean volume (Bld) [Entitic vol] 10.3 fL Normal 9.0-12.7 [facility] Comment on above: Order Comment: Speci men Type: BLOOD SPECIMENOrdering Facility: [facility] Address: [address] [place] [address] Performed By: #### 5 7021-8 ####[facility]IA [id number] [place] [id number] [place] Platelets (Bld) [#/Vol] 323 10*3/uL Normal 150-400 [facility] Comment on above: Order Comment: Speci men Type: BLOOD SPECIMENOrdering Facility: [facility] Address: [address] [place] [address] Performed By: #### 5 7021-8 ####[facility] [id number] [place] [address] [facility] RBC (Bld) [#/Vol] 4.05 10*6/uL Normal 3.90-5.20 [facility] Comment on above: Order Comment: Speci men Type: BLOOD SPECIMENOrdering Facility: [facility] Address: [address] [place] [address] Performed By: #### 5 7021-8 ####[facility] [id number] [place] [address] [facility] WBC (Bld) [#/Vol] 5.10 10*3/uL Normal 3.70-11.00 [facility] Comment on above: Order Comment: Speci men Type: BLOOD SPECIMENOrdering Facility: [facility] Address: [address] [place] [address] Performed By: #### 5 7021-8 ####[facility] [id number] [place] [address] [place] CT ABD/PEL W IVCONon 024 CT ABD/PEL W IVCON Normal [facility] ospital Comprehensive metabolic 2000 panelon 06-06-2023 Albumin [Mass/Vol] 4.3 g/dL Normal 3.9-4.9 [facility] Comment on above: Order Comment: Speci men Type: BLOOD SPECIMENOrdering Facility: [facility] Address: [address] [place], [place] [address] Performed By: #### 3 040-3, 00068-1, 02886-2 ####[facility] [id number] [place] [id number] [place] ALP [Catalytic activity/Vol] 62 U/L Normal 34-123 [facility] Comment on above: Order Comment: Speci men Type: BLOOD SPECIMENOrdering Facility: [facility] Address: [address] [place] [address] Performed By: #### 3 040-3, , ####[facility]ATORYCLIA [id number] [facility] [place] [place] [address] [place] ALT [Catalytic activity/Vol] 16 U/L Normal 7-38 [facility] Comment on above: Order Comment: Speci men Type: BLOOD SPECIMENOrdering Facility: [facility] Address: [address] [place] [address] Performed By: #### 3 040-3, , ####[facility]ORATORYCLIA [id number] [place] [address] [place] Anion gap [Moles/Vol] 10 mmol/L Normal 9-18 [facility] Comment on above: Order Comment: Speci men Type: BLOOD SPECIMENOrdering Facility: [facility] Address: [address] [place] [address] Performed By: #### 3 040-3, , ####[facility] [id number] [place] [address] [place] AST [Catalytic activity/Vol] 28 U/L Normal 13-35 [facility] Comment on above: Order Comment: Speci men Type: BLOOD SPECIMENOrdering Facility: [facility] Address: [address] [place] [address] Performed By: #### 3 040-3, , ####[facility]ORATORYCLIA [id number] [facility] [place] [address] [place] Bilirubin [Mass/Vol] 0.3 mg/dL Normal 0.2-1.3 [facility] Comment on above: Order Comment: Speci men Type: BLOOD SPECIMENOrdering Facility: [facility] Address: [address] [place] [address] Performed By: #### 3 040-3, , ####[facility]ORATORYCLIA [id number] [place] [address] [place] Calcium [Mass/Vol] 9.1 mg/dL Normal 8.5-10.2 [facility] Comment on above: Order Comment: Speci men Type: BLOOD SPECIMENOrdering Facility: [facility] Address: [address] [place] [address] Performed By: #### 3 040-3, , ####[facility]ATORYCLIA [id number] [place] [address] [place] Chloride [Moles/Vol] 103 mmol/L Normal 97-105 [facility] Comment on above: Order Comment: Speci men Type: BLOOD SPECIMENOrdering Facility: [facility] Address: [address] [place] [address] Performed By: #### 3 040-3, , ####[facility]ORATORYCLIA [id number] [place] [address] [place] CO2 [Moles/Vol] 23 mmol/L Normal 22-30 [facility] Comment on above: Order Comment: Speci men Type: BLOOD SPECIMENOrdering Facility: [facility] Address: [address] [place] [address] Performed By: #### 3 040-3, , ####[facility]ORATORYCLIA [id number] [place] [address] [place] Creatinine [Mass/Vol] 0.74 mg/dL Normal 0.58-0.96 [facility] Comment on above: Order Comment: Speci men Type: BLOOD SPECIMENOrdering Facility: [facility] Address: [address] [place] [address] Performed By: #### 3 040-3, , ####[facility]ATORYCLIA [id number] [place] [address] [place] Creatinine and Glomerular filtration rate.predicted panel (S/P/Bld) 109 mL/min/1.73m??? Normal >=60 [facility] Comment on above: Order Comment: Speci men Type: BLOOD SPECIMENOrdering Facility: [facility] Address: [address] [place] [address] Result Comment: Jessica mated Glomerular Filtration Rate (eGFR) is calculated [...] actual GFR. Performed By: #### 3 040-3, , ####[facility]ORATORYCLIA [id number] [facility] [place] [place] [address] [place] Glucose [Mass/Vol] 91 mg/dL Normal 74-99 [facility] Comment on above: Order Comment: Speci men Type: BLOOD SPECIMENOrdering Facility: [facility] Address: [address] [place] [address] Result Comment: The [place] [employer] (ADA) provides guidance for cutoff [...] Standards of Medical Care in Diabetes 2016, [place] [employer]. Diabetes Care. 2016.39(Suppl 1). Performed By: #### 3 040-3, , ####[facility]ORATORYIA [id number] [facility] [place] [address] [place] Potassium [Moles/Vol] 4.0 mmol/L Normal 3.7-5.1 [facility] Comment on above: Order Comment: Speci men Type: BLOOD SPECIMENOrdering Facility: [facility] Address: [address] [place] [id number] Performed By: #### 3 040-3, , ####[facility] [id number] [place] [address] [place] Protein [Mass/Vol] 7.4 g/dL Normal 6.3-8.0 [facility] Comment on above: Order Comment: Speci men Type: BLOOD SPECIMENOrdering Facility: [facility] Address: [address] [place] [address] Performed By: #### 3 040-3, , ####[facility] [id number] [place] [address] [place] Sodium [Moles/Vol] 136 mmol/L Normal 136-144 [facility] Comment on above: Order Comment: Speci men Type: BLOOD SPECIMENOrdering Facility: [facility] Address: [address] [place] [address] Performed By: #### 3 040-3, , ####[facility] [id number] [facility] [place] [place] [address] [place] Urea nitrogen [Mass/Vol] 14 mg/dL Normal 7- [facility] Comment on above: Order Comment: Speci men Type: BLOOD SPECIMENOrdering Facility: [facility] Address: [address] [place] [address] Performed By: #### 3 040-3, , ####[facility] [id number] [facility] [place] [place] [address] [place] ECG COMPLETEon 06-06-2023 ECG COMPLETE Normal [facility] ED NOTEon 06-06-2023 ED NOTE Normal [facility] ED NOTE Normal [facility] ED PROV NOTEon 06-06-2023 ED PROV NOTE Normal [facility] FLUABV+SARS-CoV-2+RSV Pnl Re sp HANK+probeon 06-06-2023 FLUABV+SARS-CoV-2+R SV Pnl Resp HANK+probe Normal [facility] Comment on above: Performed By: #### 9 5941-1 ####[facility] [id number] [place] [address] [place] Lipase SerPl-cCncon 06-06-19 24 Lipase [Catalytic activity/Vol] 75 U/L High 16-61 [facility] Comment on above: Order Comment: Speci men Type: BLOOD SPECIMENOrdering Facility: [facility] Address: [address] [place] [address] Performed By: #### 3 040-3, 03080-9, 56354-5 ####[facility] [id number] [place] [address] [place] Magnesium SerPl-mCncon 06-05 Magnesium [Mass/Vol] 2.1 mg/dL Normal 1.7-2.3 [facility] Comment on above: Order Comment: Speci men Type: BLOOD SPECIMENOrdering Facility: [facility] Address: [address] [place] [address] Performed By: #### 3 040-3, 45867-8, 07434-8 ####[facility] [id number] [place] [address] [place] Urinalysis complete panel (U )on 06-06-2023 Bilirubin Ql (U) Negative Normal Negative [facility] Comment on above: Order Comment: Speci men Type: URINE SPECIMENOrdering Facility: [facility] Address: [address] [place] [address] Performed By: #### 2 4356-8 ####[facility] [id number] [place] [address] [place] Clarity (Unsp spec) Clear Normal Clear [facility] Comment on above: Order Comment: Speci men Type: URINE SPECIMENOrdering Facility: [facility] Address: [address] [place] [address] Performed By: #### 2 4356-8 ####[facility] [id number] [place] [address] [place] Color (U) Light Yellow Normal yellow [facility] Comment on above: Order Comment: Speci men Type: URINE SPECIMENOrdering Facility: [facility] Address: [address] [place] [address] Performed By: #### 2 4356-8 ####[facility] [id number] [place] [address] [place] Epithelial cells LM.HPF (Urine sed) [#/Area] Few Normal [facility] Comment on above: Order Comment: Speci men Type: URINE SPECIMENOrdering Facility: [facility] Address: [address] [place] [address] Performed By: #### 2 4356-8 ####[facility] [id number] [place] [address] [place] Glucose Test strip (U) [Mass/Vol] Negative Normal Trace, Negative [facility] Comment on above: Order Comment: Speci men Type: URINE SPECIMENOrdering Facility: [facility] Address: [address] [place] [address] Performed By: #### 2 4356-8 ####[facility] [id number] [place] [address] [place] Hemoglobin Ql (U) Negative Normal Negative, Trace [facility] Comment on above: Order Comment: Speci men Type: URINE SPECIMENOrdering Facility: [facility] Address: [address] [place] [address] Performed By: #### 2 4356-8 ####[facility]ORATORYIA [id number] [place] [address] [place] Ketones Ql (U) Negative Normal Negative, Trace [facility] Comment on above: Order Comment: Speci men Type: URINE SPECIMENOrdering Facility: [facility] Address: [address] [place] [address] Performed By: #### 2 4356-8 ####[facility]ATORYIA [id number] [place] [address] [place] Leukocyte esterase Test strip Ql (U) Negative Normal Negative, 25 Patito/uL [facility] Comment on above: Order Comment: Speci men Type: URINE SPECIMENOrdering Facility: [facility] Address: [address] [place] [address] Performed By: #### 2 4356-8 ####[facility] [id number] [place] [address] [place] Nitrite Ql (U) Negative Normal Negative [facility] Comment on above: Order Comment: Speci men Type: URINE SPECIMENOrdering Facility: [facility] Address: [address] [place] [address] Performed By: #### 2 4356-8 ####[facility] [id number] [place] [address] [place] pH (U) 7.0 [pH] Normal 5.0-8.0 [facility] Comment on above: Order Comment: Speci men Type: URINE SPECIMENOrdering Facility: [facility] Address: [address] [place] [address] Performed By: #### 2 4356-8 ####[facility] [id number] [place] [address] [place] Protein (U) [Mass/Vol] Trace Normal Trace, Negative [facility] Comment on above: Order Comment: Speci men Type: URINE SPECIMENOrdering Facility: [facility] Address: [address] [place] [address] Performed By: #### 2 4356-8 ####[facility] [id number] [place] [id number] [place] RBC LM.HPF (Urine sed) [#/Area] 3-5 /HPF Abnormal 0-3 /HPF [facility] Comment on above: Order Comment: Speci men Type: URINE SPECIMENOrdering Facility: [facility] Address: [address] [place] [address] Performed By: #### 2 4356-8 ####[facility] [id number] [place] [id number] [place] Specific gravity (U) [Rel density] 1.024 Normal 1.005-1.030 [facility] Comment on above: Order Comment: Speci men Type: URINE SPECIMENOrdering Facility: [facility] Address: [address] [place] [address] Performed By: #### 2 4356-8 ####[facility]ORATORYCLIA [id number] [place] [address] [facility] [place] Urobilinogen Ql (U) Normal Normal Normal [facility] Comment on above: Order Comment: Speci men Type: URINE SPECIMENOrdering Facility: [facility] Address: [address] [place] [address] Performed By: #### 2 4356-8 ####[facility] [id number] [place] [address] [place] WBC LM.HPF (Urine sed) [#/Area] 0-5 /HPF Normal 0-5 /HPF [facility] Comment on above: Order Comment: Speci men Type: URINE SPECIMENOrdering Facility: [facility] Address: [address] [place] [address] Performed By: #### 2 4356-8 ####[facility] [id number] [place] [id number] [place] ED Note-Physicianon 06-04-19 ED Note-Physician [id number] 4B#1.00TIFF Normal [facility] Ambulatory Visit Summaryon 0 06-02-2023 Ambulatory Visit Summary Normal [address] [place] [address]- \.br\ Medications\.br\ What How Much When Why Instructions\.br\ Unchanged albuterol (Albuterol (Eqv-Ventolin HFA) 90 mcg/ inh inhalation aerosol) 2 Puffs Inhalation Every 6 hours\.br\ Unchanged busPIRone (busPIRone 10 mg Tab) 1 Tablets By Mouth 2 times a day\.br\ Unchanged escitalopram (escitalopram 20 mg Tab) 1 Tablets By Mouth Every day\.br\ Unchanged fluticasone-salmete rol (Advair Diskus 100 mcg-50 mcg inhalation powder) See instructions Bronchitis Take 1 puff 2x daily. \.br\ Unchanged levothyroxine (levothyroxine 75 mcg (0.075 mg) Tab) 1 Tablets By Mouth Every day\.br\ Unchanged linaclotide (Linzess 290 mcg oral capsule) 1 Capsules Every day\.br\ Unchanged liothyronine (liothyronine 5 mcg Tab) 5 Microgram By Mouth Every day\.br\ Unchanged methocarbamol (Robaxin-750 oral tablet) 1 Tablets By Mouth 2 times a day\.br\ Unchanged metoclopramide (metoclopramide 10 mg Tab) 1 Tablets By Mouth 4 times a day\.br\ Unchanged mirtazapine (mirtazapine 15 mg Tab) 1 Tablets By Mouth Once a day (at bedtime)\.br\ Unchanged Misc Prescription See instructions peg tube- Nutren 1.5 run for 18 hours and off for 6 hours \.br\ Unchanged ondansetron (Zofran 4 mg Tab) 1 Tablets By Mouth Every 6 hours as needed for Nausea Take one tab by mouth every six hours as needed for nausea \.br\ Unchanged pantoprazole (Pantoprazole [address] Tab) 1 Tablets By Mouth Every day\.br\ Unchanged promethazine (Phenergan 25 mg Supp) 1 Suppositories By rectum Every 6 hours as needed for Nausea/Vomiting\.br \ Unchanged promethazine (promethazine 25 mg Tab) 1 Tablets By Mouth Every 6 hours as needed for as needed for nausea/vomiting\.br \ Unchanged topiramate (topiramate 100 mg Tab) See instructions TAKE 1 TABLET BY MOUTH TWICE A DAY \.br\ Allergies\.br\ NSAIDs (Unknown)\.br\ codeine (unknown)\.br\ Problems\.br\ Ongoing - Any problem that you are currently receiving treatment for.\.br\ Abnormal thyroid blood test\.br\ Arthritis\.br\ Asthma\.br\ BMI 30.0-30.9,adult\.br \ Bronchitis\.br\ Depression\.br\ Dysfunction of sphincter of Oddi\.br\ Fatigue\.br\ Gall stone\.br\ Gastroparesis\.br\ Hyperthyroidism\.br \ Hypothyroid\.br\ Kidney cysts\.br\ Kidney stone\.br\ LUQ pain\.br\ Malnourished\.br\ Median arcuate ligament syndrome\.br\ Mixed incontinence urge and stress\.br\ Nausea\.br\ Otitis media of left ear\.br\ Rash of body\.br\ Renal cyst\.br\ Right flank pain\.br\ Status post surgery\.br\ Historical - Any problem that you are no longer receiving treatment for.\.br\ Allergic rhinitis\.br\ Anemia\.br\ Hypothyroidism\.br\ Median arcuate ligament syndrome\.br\ Metabolic syndrome\.br\ PCOS- polycystic ovary syndrome\.br\ Patient Survey\.br\ You may receive a survey via text or e-mail asking about your office visit. Please share your experience with us by completing your survey. We appreciate your feedback and thank you for choosing us for your care.\.br\ \.br\ [facility] Family Medicine Office/Clini c Noteon 06-02-2023 Family Medicine Office/Clinic Note Normal [facility] Comment on above: Result Comment: Elec tronically Signed By: Jaquan Paula\.br\Date and Time Signed: 06/02/23 12:30 EDT Provider Letteron 06-02-2023 Provider Letter Normal [facility] Provider Letter Normal [facility] Population Healthon 05-31-19 Population Health Normal [facility] Alanine aminotransferase [En zymatic activity/volume] in Serum or PlasmaOrdered By: Gabino Parker on 05-30-2023 ALT [Catalytic activity/Vol] 11 U/L 7-52 [facility] Albumin [Mass/volume] in Ser um or Plasma by Bromocresol green (BCG) dye binding methoOrdered By: Gabino Parker on 05-30-2023 Albumin BCG dye [Mass/Vol] 4.1 g/dL 3.5-5.7 [facility] Alkaline phosphatase [Enzyma tic activity/volume] in Serum or PlasmaOrdered By: Gabino Parker on 05-30-2023 ALP [Catalytic activity/Vol] 56 U/L 34-104 [facility] Aspartate aminotransferase [ Enzymatic activity/volume] in Serum or PlasmaOrdered By: Gabino Parker on 05-30-2023 AST [Catalytic activity/Vol] 22 U/L 13-39 [facility] Automated erythrocytes count in urine sediment (number/area)Ordered By: Gabino Parker on 05-30-2023 RBC Auto (Urine sed) [#/Area] 3-4 [HPF] 0-4 [facility] Automated leukocytes count i n urine sediment (number/area)Ordered By: Gabino Parker on 05-30-2023 WBC Auto (Urine sed) [#/Area] 5-9 [HPF] 0-4 [facility] Basophils Auto (Bld) [#/Vol] Ordered By: Gabino Parker on 05-30-2023 Basophils (Bld) [#/Vol] 0.0 10*3/uL 0.0-0.2 [facility] Basophils/100 WBC Auto (Bld) Ordered By: Gabino Parker on 05-30-2023 Basophils/100 WBC (Bld) 0.4 % . [facility] Bilirubin Test strip Ql (U)O rdered By: Gabino Parker on 05-30-2023 Bilirubin Ql (U) Negative Negative [facility] Bilirubin.direct [Mass/volum e] in Serum or PlasmaOrdered By: Gabino Parker on 05-30-2023 Bilirubin.direct [Mass/Vol] 0.10 mg/dL 0.03-0.18 [facility] Bilirubin.total [Mass/volume ] in Serum or PlasmaOrdered By: Gabino Parker on 05-30-2023 Bilirubin [Mass/Vol] 0.4 mg/dL 0.3-1.0 [facility] CNPNon 05-30-2023 CNPN Normal [facility] CT abdomen pelvis w conon CT abdomen pelvis w con [facility] [place] [address] CT Scan Report Signed Patient: Abbey Garcia MR#: [id number] : 1990 Acct:[id number] Age/Sex: 33 / F ADM Date: 05/30/23 Loc: ER Room: Type: [facility] ER Attending Dr: Copies to: Gabino Parker APRN Ordering Provider: Gabino Parker APRN Date of Service: 05/30/23 CT/CT abdomen pelvis w con: Abdominal Pain CT abdomen pelvis w con 05/30/2023 3:52 PM SIGNS AND SYMPTOMS: Nausea, bloating, difficulty passing gas, material exiting PEG tube TECHNIQUE: Multidetector ct axial images of the abdomen and pelvis were obtained with IV contrast. Multiplanar reformats were performed and reviewed to further define anatomy and possible pathology. CT was performed with one or more of the following dose reduction techniques: Automated exposure control, adjustment of the mA and/or kV according to patient size, or use of iterative reconstruction technique. COMPARISON: 04/06/2023 FINDINGS: Lower Chest: Within normal limits. ABDOMEN: Liver: Multiple simple appearing hepatic cysts are present. Bile Ducts: Normal caliber. Gallbladder: Previously removed Pancreas: Within normal limits. Spleen: Within normal limits. Adrenals: Within normal limits. Kidneys: Within normal limits. Pelvis: Reproductive Organs: No pelvic masses. Ureters: Within normal limits. Bladder: Within normal limits. Bowel: There is a large amount stool within the rectum suggesting fecal impaction. There is a moderate to large amount of stool throughout colon. There is no evidence of bowel obstruction. A PEG tube is present and is in satisfactory position. Mesenteric Lymph Nodes: No enlarged mesenteric lymph nodes. Peritoneum: No ascites or free air, no fluid collection. Vessels: Atherosclerotic changes are noted in the abdominal aorta. Retroperitoneum: Within normal limits. Abdominal Wall: There is evidence of previous midline laparotomy. Bones: Within normal limits. CT/CT abdomen pelvis w con IMPRESSION: No bowel obstruction or obstructive uropathy. There is a large amount of stool in the rectum suggesting fecal impaction. A PEG tube is present. Postoperative changes are noted along the gastric lumen. This is consistent with previous gastric bypass. Impression dictated by: Melisa Hutchinson M.D.05/30/2023 5:49 PM Dictation Location: [place] [address] Transcribed By: [facility] 05/30/231748 Dictated By: Melisa Hutchinson II, MD 05/30/231739 Signed By: 05/30/231748 Normal [facility] Physician [facility] Calcium [Mass/volume] in Ser um or PlasmaOrdered By: Gabino Parker on 05-30-2023 Calcium [Mass/Vol] 9.3 mg/dL 8.6-10.3 [facility] Carbon dioxide, total [Moles /volume] in Serum or PlasmaOrdered By: Gabino Parker on 05-30-2023 CO2 [Moles/Vol] 27.7 mmol/L 21.0-31.0 [facility] Chloride [Moles/volume] in S elder or PlasmaOrdered By: Gabino Parker on 05-30-2023 Chloride [Moles/Vol] 103 mmol/L 98-107 [facility] Color Auto (U)Ordered By: Luis Parker on 05-30-2023 Color (U) Yellow Yellow [facility] Complete Blood Count Auto Di ffon 05-30-2023 Basophils (Bld) [#/Vol] 0.0 10*3/uL Normal 0.0-0.2 [facility] Comment on above: Result Comment: PERF ORMED BY: [place] [address] PATHOLOGIST PACKAGING DESIGNER BAUTISTA BAKER M.D. Performed By: #### H EPATIC, MG, LIPASE, CMP, CBC #### [address] Basophils/100 WBC (Bld) 0.4 % Normal . [facility] Comment on above: Performed By: #### H EPATIC, MG, LIPASE, CMP, CBC #### [place] [address] [place] Eosinophils (Bld) [#/Vol] 0.0 10*3/uL Normal 0.0-0.45 [facility] Comment on above: Performed By: #### H EPATIC, MG, LIPASE, CMP, CBC #### [facility] [address] [place] [address] [place] Eosinophils/100 WBC (Bld) 0.4 % Normal . [facility] Comment on above: Performed By: #### H EPATIC, MG, LIPASE, CMP, CBC #### [address] Erythrocyte distribution width (RBC) [Ratio] 15.5 % High 11.9-15.3 [facility] Comment on above: Performed By: #### H EPATIC, MG, LIPASE, CMP, CBC #### [address] Hematocrit (Bld) [Volume fraction] 34.9 % Normal 34.0-46.4 [facility] Comment on above: Performed By: #### H EPATIC, MG, LIPASE, CMP, CBC #### [address] Hemoglobin (Bld) [Mass/Vol] 11.8 g/dL Normal 11.8-15.4 [facility] Comment on above: Performed By: #### H EPATIC, MG, LIPASE, CMP, CBC #### [address] Lymphocytes (Bld) [#/Vol] 1.4 10*3/uL Normal 1.00-4.8 [facility] Comment on above: Performed By: #### H EPATIC, MG, LIPASE, CMP, CBC #### [address] Lymphocytes/100 WBC (Bld) 15.7 % Normal . [facility] Comment on above: Performed By: #### H EPATIC, MG, LIPASE, CMP, CBC #### [address] MCH (RBC) [Entitic mass] 30.5 pg Normal 24.7-34.3 [facility] Comment on above: Performed By: #### H EPATIC, MG, LIPASE, CMP, CBC #### [address] MCV (RBC) [Entitic vol] 90.3 fL Normal 80-100 [facility] Comment on above: Performed By: #### H EPATIC, MG, LIPASE, CMP, CBC #### [address] Mean Corpuscular HGB Conc 33.8 g/dL Normal 32.0-35.0 [facility] Comment on above: Performed By: #### H EPATIC, MG, LIPASE, CMP, CBC #### [address] Monocytes (Bld) [#/Vol] 0.4 10*3/uL Normal 0.0-0.8 [facility] Comment on above: Performed By: #### H EPATIC, MG, LIPASE, CMP, CBC #### [address] Monocytes/100 WBC (Bld) 16.47 % Normal 0.00-20.00 [facility] Comment on above: Performed By: #### H EPATIC, MG, LIPASE, CMP, CBC #### [address] Monocytes/100 WBC (Bld) 4.5 % Normal . [facility] Comment on above: Performed By: #### H EPATIC, MG, LIPASE, CMP, CBC #### [address] Neutrophils (Bld) [#/Vol] 6.9 10*3/uL Normal 1.8-7.7 [facility] Comment on above: Performed By: #### H EPATIC, MG, LIPASE, CMP, CBC #### [address] Neutrophils/100 WBC (Bld) 79.0 % Normal . [facility] Comment on above: Performed By: #### H EPATIC, MG, LIPASE, CMP, CBC #### [address] NRBC% 0.1 /100{WBC} Normal 0-0.5 [facility] Comment on above: Performed By: #### H EPATIC, MG, LIPASE, CMP, CBC #### [address] Platelet mean volume (Bld) [Entitic vol] 9.5 fL Normal 6.3-10.7 [facility] Comment on above: Performed By: #### H EPATIC, MG, LIPASE, CMP, CBC #### [address] Platelets (Bld) [#/Vol] 270 10*3/uL Normal 150-450 [facility] Comment on above: Performed By: #### H EPATIC, MG, LIPASE, CMP, CBC #### [address] RBC (Bld) [#/Vol] 3.86 10*6/uL Normal 3.60-5.00 [facility] Comment on above: Performed By: #### H EPATIC, MG, LIPASE, CMP, CBC #### [address] WBC (Bld) [#/Vol] 8.8 10*3/uL Normal 3.8-11.6 [facility] Comment on above: Performed By: #### H EPATIC, MG, LIPASE, CMP, CBC #### [address] Comprehensive Metabolic Pane nestor 05-30-2023 Albumin [Mass/Vol] 4.1 g/dL Normal 3.5-5.7 [facility] Comment on above: Performed By: #### H EPATIC, MG, LIPASE, CMP, CBC #### [address] Albumin/Globulin [Mass ratio] 1.3 {ratio} Normal [facility] Comment on above: Performed By: #### H EPATIC, MG, LIPASE, CMP, CBC #### [address] ALP [Catalytic activity/Vol] 56 U/L Normal 34-104 [facility] Comment on above: Performed By: #### H EPATIC, MG, LIPASE, CMP, CBC #### [address] ALT [Catalytic activity/Vol] 11 U/L Normal 7-52 [facility] Comment on above: Performed By: #### H EPATIC, MG, LIPASE, CMP, CBC #### [address] Anion gap [Moles/Vol] 12.3 mmol/L Normal 6.0-15.0 [facility] Comment on above: Performed By: #### H EPATIC, MG, LIPASE, CMP, CBC #### [address] AST [Catalytic activity/Vol] 22 U/L Normal 13-39 [facility] Comment on above: Performed By: #### H EPATIC, MG, LIPASE, CMP, CBC #### [address] Bilirubin [Mass/Vol] 0.4 mg/dL Normal 0.3-1.0 [facility] Comment on above: Performed By: #### H EPATIC, MG, LIPASE, CMP, CBC #### [address] Calcium [Mass/Vol] 9.3 mg/dL Normal 8.6-10.3 [facility] Comment on above: Performed By: #### H EPATIC, MG, LIPASE, CMP, CBC #### [address] Chloride [Moles/Vol] 103 mmol/L Normal 98-107 [facility] Comment on above: Performed By: #### H EPATIC, MG, LIPASE, CMP, CBC #### [address] CO2 [Moles/Vol] 27.7 mmol/L Normal 21.0-31.0 [facility] Comment on above: Performed By: #### H EPATIC, MG, LIPASE, CMP, CBC #### [address] Creatinine [Mass/Vol] 0.70 mg/dL Normal 0.60-1.20 [facility] Comment on above: Performed By: #### H EPATIC, MG, LIPASE, CMP, CBC #### [address] Creatinine Clr Calc Pharmacy 118.42 Normal [facility] Comment on above: Performed By: #### H EPATIC, MG, LIPASE, CMP, CBC #### [facility] [address] [place] [address] [place] GFR/1.73 sq M.predicted MDRD (S/P/Bld) [Vol rate/Area] mL/min/{1.73_m2} Normal [facility] Comment on above: Performed By: #### H EPATIC, MG, LIPASE, CMP, CBC #### [facility] [address] [place] [address] [place] Globulin (S) [Mass/Vol] 3.1 g/dL Normal [facility] Comment on above: Performed By: #### H EPATIC, MG, LIPASE, CMP, CBC #### [facility] [address] Glucose [Mass/Vol] 81 mg/dL Normal 70-100 [facility] Comment on above: Result Comment: [facility] Glucose Reference Range is dependent on time and content of last meal. Glucose of more than 200 mg/dL in a nonstressed, ambulatory subject supports the diagnosis of Diabetes Mellitus. ADA recommended reference range Performed By: #### H EPATIC, MG, LIPASE, CMP, CBC #### [facility] [address] Potassium [Moles/Vol] 4.0 mmol/L Normal 3.5-5.1 [facility] Comment on above: Performed By: #### H EPATIC, MG, LIPASE, CMP, CBC #### [facility] [address] [place] [address] [place] Protein [Mass/Vol] 7.2 g/dL Normal 6.4-8.9 [facility] Comment on above: Performed By: #### H EPATIC, MG, LIPASE, CMP, CBC #### [facility] [address] [place] [address] [place] Sodium [Moles/Vol] 139 mmol/L Normal 136-145 [facility] Comment on above: Performed By: #### H EPATIC, MG, LIPASE, CMP, CBC #### [facility] [address] [place] [address] [place] Urea nitrogen [Mass/Vol] 6 mg/dL Low 7-25 [facility] Comment on above: Performed By: #### H EPATIC, MG, LIPASE, CMP, CBC #### [facility] [address] Creatinine [Mass/volume] in Serum or PlasmaOrdered By: Gabino Parker on 05-30-2023 Creatinine [Mass/Vol] 0.70 mg/dL 0.60-1.20 [facility] Dipstick and Microscopicon 0 05-30-2023 Appearance (U) Clear Normal Clear [facility] Comment on above: Order Comment: Name Collection Type:: Clean-Voided Midstream Performed By: #### U HCG, ADDONUAPLUS, CUU #### [address] Bacteria,Urine None Seen Normal None Seen [facility] Comment on above: Order Comment: Name Collection Type:: Clean-Voided Midstream Performed By: #### U HCG, ADDONUAPLUS, CUU #### [place] [address] [place] Bilirubin,Urine Negative Normal Negative [facility] Comment on above: Order Comment: Name Collection Type:: Clean-Voided Midstream Performed By: #### U HCG, ADDONUAPLUS, CUU #### [address] Color (U) Yellow Normal Yellow [facility] Comment on above: Order Comment: Name Collection Type:: Clean-Voided Midstream Performed By: #### U HCG, ADDONUAPLUS, CUU #### [address] Glucose Ql (U) Normal Normal Normal [facility] Comment on above: Order Comment: Name Collection Type:: Clean-Voided Midstream Performed By: #### U HCG, ADDONUAPLUS, CUU #### [place] [address] [place] Hyaline Casts,Urine 0-8 Normal 0-8 [facility] Comment on above: Order Comment: Name Collection Type:: Clean-Voided Midstream Performed By: #### U HCG, ADDONUAPLUS, CUU #### [address] Ketones Ql (U) Negative Normal Negative [facility] Comment on above: Order Comment: Name Collection Type:: Clean-Voided Midstream Performed By: #### U HCG, ADDONUAPLUS, CUU #### [address] Leukocyte esterase Test strip Ql (U) 1+ High Negative [facility] Comment on above: Order Comment: Name Collection Type:: Clean-Voided Midstream Performed By: #### U HCG, ADDONUAPLUS, CUU #### [place] [address] [place] Nitrite,Urine Negative Normal Negative [facility] Comment on above: Order Comment: Name Collection Type:: Clean-Voided Midstream Performed By: #### U HCG, ADDONUAPLUS, CUU #### [place] [address] [place] Occult Blood,Urine Negative Normal Negative [facility] Comment on above: Order Comment: Name Collection Type:: Clean-Voided Midstream Performed By: #### U HCG, ADDONUAPLUS, CUU #### [address] pH (U) [pH] Normal 5.0-9.0 [facility] Comment on above: Order Comment: Name Collection Type:: Clean-Voided Midstream Performed By: #### U HCG, ADDONUAPLUS, CUU #### [place] [address] [place] Protein,Urine Negative Normal Negative [facility] Comment on above: Order Comment: Name Collection Type:: Clean-Voided Midstream Performed By: #### U HCG, ADDONUAPLUS, CUU #### [place] [address] [place] RBC,Urine 3-4 Normal 0-4 [facility] Comment on above: Order Comment: Name Collection Type:: Clean-Voided Midstream Performed By: #### U HCG, ADDONUAPLUS, CUU #### [facility] [address] [place] [address] Specificy [place],Urine 1.011 Normal 1.001-1.030 [facility] Comment on above: Order Comment: Name Collection Type:: Clean-Voided Midstream Performed By: #### U HCG, ADDONUAPLUS, CUU #### [facility] [address] [place] [address] Squamous Epithelial Cell,Urine 0-1 Normal 0-2 [facility] Comment on above: Order Comment: Name Collection Type:: Clean-Voided Midstream Performed By: #### U HCG, ADDONUAPLUS, CUU #### [address] Urobilinogen,Urine Normal Normal Normal [facility] Comment on above: Order Comment: Name Collection Type:: Clean-Voided Midstream Performed By: #### U HCG, ADDONUAPLUS, CUU #### [address] WBC,Urine 5-9 High 0-4 [facility] Comment on above: Order Comment: Name Collection Type:: Clean-Voided Midstream Performed By: #### U HCG, ADDONUAPLUS, CUU #### [address] Eosinophils Auto (Bld) [#/Vo l]Ordered By: Gabino Parker on 05-30-2023 Eosinophils (Bld) [#/Vol] 0.0 10*3/uL 0.0-0.45 [facility] Eosinophils/100 WBC Auto (Bl d)Ordered By: Gabino Parker on 05-30-2023 Eosinophils/100 WBC (Bld) 0.4 % . [facility] Erythrocyte distribution wid th Auto (RBC) [Ratio]Ordered By: Gabino Parker on 05-30-2023 Erythrocyte distribution width (RBC) [Ratio] 15.5 % 11.9-15.3 [facility] Globulin Calc (S) [Mass/Vol] Ordered By: Gabino Parker on 05-30-2023 Globulin (S) [Mass/Vol] 3.1 g/dL [facility] Glucose [Mass/volume] in Ser um or PlasmaOrdered By: Gabino Parker on 05-30-2023 Glucose [Mass/Vol] 81 mg/dL 70-100 [facility] Comment on above: ADA recommended refe rence rangeRandom Glucose Reference Range is dependent on time and content of last meal. Glucose of more than 200 mg/dL in a nonstressed, ambulatory subject supports the diagnosis of Diabetes Mellitus. HCG ( test) IA.rapi d Ql (U)Ordered By: Gabino Parker on 05-30-2023 HCG ( test) Ql (U) Negative [facility] HCG,Urineon 05-30-2023 Beta HCG ( test) Ql (U) Negative Normal [facility] Comment on above: Order Comment: Name Collection Type:: Clean-Voided Midstream Result Comment: PERF ORMED BY: [place] [address] PATHOLOGIST PACKAGING DESIGNER BAUTISTA BAKER M.D. Performed By: #### U HCG, ADDONUAPLUS, CUU #### [facility] [address] Hematocrit Auto (Bld) [Volum e fraction]Ordered By: Gabino Parker on 05-30-2023 Hematocrit (Bld) [Volume fraction] 34.9 % 34.0-46.4 [facility] Hemoglobin [Mass/volume] in BloodOrdered By: Gabino Parker on 05-30-2023 Hemoglobin (Bld) [Mass/Vol] 11.8 g/dL 11.8-15.4 [facility] Hepatic Panelon 05-30-2023 Bilirubin,Indirect 0.3 mg/dL Normal [facility] Comment on above: Performed By: #### H EPATIC, MG, LIPASE, CMP, CBC #### [facility] [address] Bilirubin.indirect [Mass/Vol] 0.10 mg/dL Normal 0.03-0.18 [facility] Comment on above: Performed By: #### H EPATIC, MG, LIPASE, CMP, CBC #### [facility] [address] [place] [id number] [facility] Ketones Auto test strip (U) [Mass/Vol]Ordered By: Gabino Parker on 05-30-2023 Ketones (U) [Mass/Vol] Negative Negative [facility] Laboratory - UrinalysisOrder ed By: Gabino Parker on 05-30-2023 Hyaline casts LM Ql (Urine sed) 0-8 [LPF] 0-8 [facility] Leukocytes [#/volume] correc darvin for nucleated erythrocytes in Blood by Automated counOrdered By: Gabino Parker on 05-30-2023 WBC corrected for nucl RBC Auto (Bld) [#/Vol] 8.8 10*3/uL 3.8-11.6 [facility] Lipaseon 05-30-2023 Lipase [Catalytic activity/Vol] 37.0 U/L Normal 11.0-82.0 [facility] Comment on above: Result Comment: PERF ORMED BY: [place] [address] PATHOLOGIST PACKAGING DESIGNER BAUTISTA BAKER M.D. Performed By: #### H EPATIC, MG, LIPASE, CMP, CBC #### [facility] [address] [place] [address] Lipase [Enzymatic activity/v olume] in Serum or PlasmaOrdered By: Gabino Parker on 05-30-2023 Lipase [Catalytic activity/Vol] 37.0 U/L 11.0-82.0 [facility] Lymphocytes Auto (Bld) [#/Vo l]Ordered By: Gabino Parker on 05-30-2023 Lymphocytes (Bld) [#/Vol] 1.4 10*3/uL 1.00-4.8 [facility] Lymphocytes/100 WBC Auto (Bl d)Ordered By: Gabino Parker on 05-30-2023 Lymphocytes/100 WBC (Bld) 15.7 % . [facility] MCH Auto (RBC) [Entitic mass ]Ordered By: Gabino Parker on 05-30-2023 MCH (RBC) [Entitic mass] 30.5 pg 24.7-34.3 [facility] MCHC Auto (RBC) [Mass/Vol]Or dered By: Gabino Parker on 05-30-2023 MCHC (RBC) [Mass/Vol] 33.8 g/dL 32.0-35.0 [facility] MCV Auto (RBC) [Entitic vol] Ordered By: Gabino Parker on 05-30-2023 MCV (RBC) [Entitic vol] 90.3 fL 80-100 [facility] Magnesiumon 05-30-2023 Magnesium [Mass/Vol] 2.1 mg/dL Normal 1.9-2.7 [facility] Comment on above: Performed By: #### H EPATIC, MG, LIPASE, CMP, CBC #### [facility] [address] Magnesium [Mass/volume] in S elder or PlasmaOrdered By: Gabino Parker on 05-30-2023 Magnesium [Mass/Vol] 2.1 mg/dL 1.9-2.7 [facility] Monocyte distribution width [Entitic volume] in Blood by AutomatedOrdered By: Gabino Parker on 05-30-2023 Monocyte distribution width Auto (Bld) [Entitic vol] 16.47 % 0.00-20.00 [facility] Monocytes Auto (Bld) [#/Vol] Ordered By: Gabino Parker on 05-30-2023 Monocytes (Bld) [#/Vol] 0.4 10*3/uL 0.0-0.8 [facility] Monocytes/100 WBC Auto (Bld) Ordered By: Gabino Parker on 05-30-2023 Monocytes/100 WBC (Bld) 4.5 % . [facility] Neutrophils Auto (Bld) [#/Vo l]Ordered By: Gabino Parker on 05-30-2023 Neutrophils (Bld) [#/Vol] 6.9 10*3/uL 1.8-7.7 [facility] Neutrophils/100 WBC Auto (Bl d)Ordered By: Gabino Parker on 05-30-2023 Neutrophils/100 WBC (Bld) 79.0 % . [facility] Nitrite Test strip Ql (U)Ord ered By: Gabino Parker on 05-30-2023 Nitrite Ql (U) Negative Negative [facility] No Panel InformationOrdered By: Gabino Parker on 05-30-2023 Estimated GFR (CKD-EPI) > 60.0 mL/Min [facility] Creatinine Clearance (Chem 118.42 [facility] Nucleated erythrocytes [Pres ence] in Blood by Automated countOrdered By: Gabino Parker on 05-30-2023 Nucleated RBC Auto Ql (Bld) 0.1 /100{WBC} 0-0.5 [facility] Platelet mean volume Auto (B ld) [Entitic vol]Ordered By: Gabino Parker on 05-30-2023 Platelet mean volume (Bld) [Entitic vol] 9.5 fL 6.3-10.7 [facility] Platelets Auto (Bld) [#/Vol] Ordered By: Gabino Parker on 05-30-2023 Platelets (Bld) [#/Vol] 270 10*3/uL 150-450 [facility] Potassium [Moles/volume] in Serum or PlasmaOrdered By: Gabino Parker 05-30-2023 Potassium [Moles/Vol] 4.0 mmol/L 3.5-5.1 [facility] Protein Auto test strip (U) [Mass/Vol]Ordered By: Gabino Parker on 05-30-2023 Protein (U) [Mass/Vol] Negative Negative [facility] Protein [Mass/volume] in Ser um or PlasmaOrdered By: Gabino Parker 05-30-2023 Protein [Mass/Vol] 7.2 g/dL 6.4-8.9 [facility] RBC Auto (Bld) [#/Vol]Ordere d By: Gabino Parker on 05-30-2023 RBC (Bld) [#/Vol] 3.86 10*6/uL 3.60-5.00 [facility] Serum or plasma albumin/glob ulin mass ratioOrdered By: Gabino Parker on 05-30-2023 Albumin/Globulin [Mass ratio] 1.3 {ratio} [facility] Serum or plasma anion gap de terminationOrdered By: Gabino Parker 05-30-2023 Anion gap [Moles/Vol] 12.3 mmol/L 6.0-15.0 [facility] Serum or plasma non-glucuron idated bilirubin measurement (mass/volume)Ordered By: Gabino Parker on 05-30-2023 Bilirubin.indirect [Mass/Vol] 0.3 mg/dL [facility] Sodium [Moles/volume] in Ser um or PlasmaOrdered By: Gabino Parker on 05-30-2023 Sodium [Moles/Vol] 139 mmol/L 136-145 [facility] Specific gravity Auto test s trip (U) [Rel density]Ordered By: Gabino Parker on 05-30-2023 Specific gravity (U) [Rel density] 1.011 1.001-1.030 [facility] Squamous epithelial cells de tection in urine sediment by light microscopyOrdered By: Gabino Parker on 05-30-2023 Epithelial cells.squamous LM Ql (Urine sed) 0-1 [HPF] 0-2 [facility] Urea nitrogen [Mass/volume] in Serum or PlasmaOrdered By: Gabino Parker on 05-30-2023 Urea nitrogen [Mass/Vol] 6 mg/dL 7-25 [facility] Urine Cultureon 05-30-2023 Bacteria identified Cx Nom (U) 75,000 colonies/ml mixed bacterial skin contaminants 2 Days PERFORMED BY: [facility] [address] [place] [address] PATHOLOGIST PACKAGING DESIGNER BAUTISTA BAKER M.D. Normal [facility] Comment on above: Performed By: #### U HCG, ADDONUAPLUS, CUU ####[facility] [id number] [place] [address] [facility] Urine bacteria detection by automated methodOrdered By: Gabino Parker on 05-30-2023 Bacteria Auto Ql (U) None seen None Seen [facility] Urine clarity by refractomet ry automatedOrdered By: Gabino Parker on 05-30-2023 Clarity Refractometry automated (U) Clear Clear [facility] Urine glucose measurement by automated test strip (mass/volume)Ordered By: Gabino Parker on 05-30-2023 Glucose Auto test strip (U) [Mass/Vol] Normal mg/dL Normal [facility] Urine hemoglobin detection b y automated test stripOrdered By: Gabino Parker on 05-30-2023 Hemoglobin Auto test strip Ql (U) Negative Negative [facility] Urine leukocyte esterase det ection by automated test stripOrdered By: Gabino Parker on 05-30-2023 Leukocyte esterase Auto test strip Ql (U) 1+ Negative [facility] Urobilinogen Auto test strip (U) [Mass/Vol]Ordered By: Gabino Parker on 05-30-2023 Urobilinogen (U) [Mass/Vol] Normal mg/dL Normal [facility] WBC Auto (Bld) [#/Vol]Ordere d By: Gabino Parker on 05-30-2023 WBC (Bld) [#/Vol] 8.8 10*3/uL 3.8-11.6 [facility] pH Auto test strip (U)Ordere d By: Gabino Parker on 05-30-2023 pH (U) [pH] 5.0-9.0 [facility] Basic metabolic 2000 panelon 05-28-2023 Anion gap [Moles/Vol] 10 mmol/L Normal 9-18 [facility] Comment on above: Order Comment: Speci men Type: BLOOD SPECIMEN Ordering Facility: [facility] Address: [address] [place] [address] Performed By: #### 5 7021-8 #### [facility] CLIA [id number] [address] [place] [address] [place] Calcium [Mass/Vol] 8.5 mg/dL Normal 8.5-10.2 [facility] Comment on above: Order Comment: Speci men Type: BLOOD SPECIMEN Ordering Facility: [facility] Address: [address] [place] [address] Performed By: #### 5 7021-8 #### [facility] CLIA [id number] [address] [place] [address] [place] Chloride [Moles/Vol] 105 mmol/L Normal 97-105 [facility] Comment on above: Order Comment: Speci men Type: BLOOD SPECIMEN Ordering Facility: [facility] Address: [address] [place] [address] Performed By: #### 5 7021-8 #### [facility] CLIA [id number] [address] [place] [address] [place] CO2 [Moles/Vol] 24 mmol/L Normal 22-30 [facility] Comment on above: Order Comment: Lyssai elida Type: BLOOD SPECIMEN Ordering Facility: [facility] Address: [address] [place] [address] Performed By: #### 5 7021-8 #### [facility] CLIA [id number] [address] [place] [address] [place] Creatinine [Mass/Vol] 0.52 mg/dL Low 0.58-0.96 [facility] Comment on above: Order Comment: Speci men Type: BLOOD SPECIMEN Ordering Facility: [facility] Address: [address] [place] [address] Performed By: #### 5 7021-8 #### [facility] CLIA [id number] [address] [place] [address] Creatinine and Glomerular filtration rate.predicted panel (S/P/Bld) 125 mL/min/1.73m??? Normal >=60 [facility] Comment on above: Order Comment: Speci men Type: BLOOD SPECIMEN Ordering Facility: [facility] Address: [address] [place] [address] Result Comment: Jessica mated Glomerular Filtration Rate (eGFR) is calculated using the 2020 CKD-EPI creatinine equation. This equation utilizes serum creatinine, sex, and age as parameters. The creatinine assay has traceable calibration to isotope dilution-mass spectrometry. Refer to KDIGO guidelines for clinical interpretation. In patients with unstable renal function, e.g. those with acute kidney injury, the eGFR may not accurately reflect actual GFR. Performed By: #### 5 7021-8 #### [facility] CLIA [id number] [address] [place] [address] [place] Glucose [Mass/Vol] 77 mg/dL Normal 74-99 [facility] Comment on above: Order Comment: Lyssai men Type: BLOOD SPECIMEN Ordering Facility: [facility] Address: [address] [place] [address] Result Comment: The [place] [employer] (ADA) provides guidance for cutoff [...] Standards of Medical Care in Diabetes 2016, [place] [employer]. Diabetes Care. 2016.39(Suppl 1). Performed By: #### 5 7021-8 #### [facility] CLIA [id number] [address] [place] [address] [place] Potassium [Moles/Vol] 4.2 mmol/L Normal 3.7-5.1 [facility] Comment on above: Order Comment: Geraldo marrero Type: BLOOD SPECIMEN Ordering Facility: [facility] Address: [address] [place] [address] Performed By: #### 5 7021-8 #### [facility] CLIA [id number] [address] [place] [address] [place] Sodium [Moles/Vol] 139 mmol/L Normal 136-144 [facility] Comment on above: Order Comment: Geraldo marrero Type: BLOOD SPECIMEN Ordering Facility: [facility] Address: [address] [place] [address] Performed By: #### 5 7021-8 #### [facility] CLIA [id number] [address] [place] [address] [place] Urea nitrogen [Mass/Vol] 8 mg/dL Normal 7-21 [facility] Comment on above: Order Comment: Geraldo marrero Type: BLOOD SPECIMEN Ordering Facility: [facility] Address: [address] [place] [address] Performed By: #### 5 7021-8 #### [facility] CLIA [id number] [address] [place] [address] [place] CBC panel Auto (Bld)on 05-27 Erythrocyte distribution width (RBC) [Ratio] 13.7 % Normal 11.5-15.0 [facility] Comment on above: Order Comment: Speci men Type: BLOOD SPECIMEN Ordering Facility: [facility] Address: [address] [place] [address] Performed By: #### 5 8410-2 #### [facility] CLIA [id number] [address] [place] [address] [place] Hematocrit (Bld) [Volume fraction] 31.5 % Low 36.0-46.0 [facility] Comment on above: Order Comment: Speci men Type: BLOOD SPECIMEN Ordering Facility: [facility] Address: [address] [place] [address] Performed By: #### 5 8410-2 #### [facility] CLIA [id number] [address] [place] [address] [place] Hemoglobin (Bld) [Mass/Vol] 11.1 g/dL Low 11.5-15.5 [facility] Comment on above: Order Comment: Speci men Type: BLOOD SPECIMEN Ordering Facility: [facility] Address: [address] [place] [address] Performed By: #### 5 8410-2 #### [facility] CLIA [id number] [address] [place] [address] [place] MCH (RBC) [Entitic mass] 31.4 pg Normal 26.0-34.0 [facility] Comment on above: Order Comment: Speci men Type: BLOOD SPECIMEN Ordering Facility: [facility] Address: [address] [place] [address] Performed By: #### 5 8410-2 #### [facility] CLIA [id number] [address] [place] [address] [place] MCHC (RBC) [Mass/Vol] 35.2 g/dL Normal 30.5-36.0 [facility] Comment on above: Order Comment: Speci men Type: BLOOD SPECIMEN Ordering Facility: [facility] Address: [address] [place] [address] Performed By: #### 5 8410-2 #### [facility] CLIA [id number] [address] [place], [place] [address] [place] MCV (RBC) [Entitic vol] 89.2 fL Normal 80.0-100.0 [facility] Comment on above: Order Comment: Speci men Type: BLOOD SPECIMEN Ordering Facility: [facility] Address: [address] [place] [address] Performed By: #### 5 8410-2 #### [facility] CLIA [id number] [address] [place] [address] [place] Nucleated RBC (Bld) [#/Vol] 10*3/uL Normal <0.01 [facility] Comment on above: Order Comment: Speci men Type: BLOOD SPECIMEN Ordering Facility: [facility] Address: [address] [place] [address] Performed By: #### 5 8410-2 #### [facility] CLIA [id number] [address] [place] [address] [place] Platelet mean volume (Bld) [Entitic vol] 11.8 fL Normal 9.0-12.7 [facility] Comment on above: Order Comment: Speci men Type: BLOOD SPECIMEN Ordering Facility: [facility] Address: [address] [place] [address] Performed By: #### 5 8410-2 #### [facility] CLIA [id number] [address] [place] [address] [place] Platelets (Bld) [#/Vol] 199 10*3/uL Normal 150-400 [facility] Comment on above: Order Comment: Speci men Type: BLOOD SPECIMEN Ordering Facility: [facility] Address: [address] [place] [address] Performed By: #### 5 8410-2 #### [facility] CLIA [id number] [address] [place] [address] [place] RBC (Bld) [#/Vol] 3.53 10*6/uL Low 3.90-5.20 [facility] Comment on above: Order Comment: Speci men Type: BLOOD SPECIMEN Ordering Facility: [facility] Address: [address] [place] [address] Performed By: #### 5 8410-2 #### [facility] CLIA [id number] [id number] [place] WBC (Bld) [#/Vol] 6.24 10*3/uL Normal 3.70-11.00 [facility] Comment on above: Order Comment: Speci men Type: BLOOD SPECIMEN Ordering Facility: [facility] Address: [address] [place] [address] Performed By: #### 5 8410-2 #### [facility] CLIA [id number] [place] [id number] [place] CNCOon 05-28-2023 CNCO Letter Text Normal [facility] CNDSon 05-28-2023 CNDS HNO ID: [id number] Author: DEACON KAT MD Service: General Surgery Author Type: Physician Type: Discharge Summary Filed: 05/30/2023 10:12 Note Text: GENERAL SURGERY DISCHARGE SUMMARY PATIENT NAME: Abbey Garcia ADMISSION DATE: 05/25/2023 DISCHARGE DATE: 05/28/2023 ATTENDING PHYSICIAN: Deacon Kat MD Code Status: Full Code Highest Readmission Risk Score: 15 The 30 day readmissions risk score is derived from an internally validated risk model which evaluates patient level characteristics, utilization history, medication orders and lab results up until the day of discharge. Patients with a score of 40 or above are considered highest risk for readmission. Specific patient level drivers will be listed at the bottom of the summary. REASON FOR HOSPITALIZATION: Principal Problem: Decreased oral intake (POA: Yes) Active Problems: Malnutrition of mild degree (HCC) (POA: Yes) Resolved Problems: * No resolved hospital problems. * Labs and Procedures Pending at Discharge: No pending results. Patient Condition at Discharge: Stable Discharge Disposition: Home with Self Care OPERATIONS DURING HOSPITALIZATION: None PROCEDURES DURING HOSPITALIZATION: EGD with PEG-J placement HOSPITAL COURSE: Ms. Garcia, a 33-year-old female with PMH anemia, PCOS, GERD, and chronic abdominal pain. PSH laparoscopic cholecystectomy in 2008, sleeve gastrectomy in 2020, conversion to gastric bypass in 2021, lap assisted ERCP with sphincterotomy in 2022, and MALS surgery in February 2023. She had a Corpak placed on 05/19 and TF started which she tolerated. She was admitted on 05/24 for endoscopic PEG-J feeing tube placement. Procedure went without complications. She was started on tube feeds that were advanced to goal and she tolerated it. Patient was discharged in a stable condition. Active Hospital Problems Diagnosis Date Noted Decreased oral intake 05/25/2023 Malnutrition of mild degree (HCC) 04/06/2020 Resolved Hospital Problems No resolved problems to display. Transitions of Care Critical Issues: none LABS AND PROCEDURES PENDING AT DISCHARGE: No pending results. CONSULTING TEAMS DURING HOSPITALIZATION: None Treatment Team: Attending Provider: Deacon Kat MD PATIENT CONDITION AT DISCHARGE: Stable DISCHARGE DISPOSITION: Home with Home Health Home with Home Health INFORMATION PROVIDED TO PATIENT: Patient given copy of discharge instructions DIET: Tube feeds, GIS diet for comfort ALLERGIES Allergen Reactions Adhesive Tape-Silic* Intolerance Sensitive to certain adhesive tapes. Redness and itchy. Codeine GI Upset Nsaids (Non-Steroid* Contraindication-Me dical Surgical S/p RYGB DISCHARGE MEDICATION: Medication List CHANGE how you take these medications methocarbamol 750 mg tablet Commonly known as: ROBAXIN Take 1 tablet by mouth three times a day. What changed: medication strength how much to take * NUTREN 1.5 0.07 gram-1.5 kcal/mL Liqd Generic drug: nutritional supplements 45 mL/hr by FEEDING TUBE route continuous. What changed: Another medication with the same name was added. Make sure you understand how and when to take each. * NUTREN 1.5 0.07 gram-1.5 kcal/mL Liqd Generic drug: nutritional supplements TF for PEG-J Rate: 45cc/hr What changed: You were already taking a medication with the same name, and this prescription was added. Make sure you understand how and when to take each. * This list has 2 medication(s) that are the same as other medications prescribed for you. Read the directions carefully, and ask your doctor or other care provider to review them with you. CONTINUE taking these medications acetaminophen 500 mg tablet Commonly known as: TYLENOL Take 2 tablets by mouth every 6 hours as needed for pain or fever (specify). albuterol HFA 90 mcg/actuation inhaler Commonly known as: PROVENTIL HFA, VENTOLIN HFA docusate sodium 100 mg capsule Commonly known as: COLACE Take 1 capsule by mouth three times daily. decrease the dose or stop for diarrhea escitalopram oxalate 20 mg tablet Commonly known as: LEXAPRO take 1 tablet daily fluticasone-salmete rol 100-50 mcg/dose inhaler Commonly known as: ADVAIR DISKUS levothyroxine 100 mcg tablet Commonly known as: SYNTHROID Take 1 tablet by mouth once daily. linaCLOtide 290 mcg capsule Commonly known as: LINZESS Take 1 capsule by mouth daily at 6 am. liothyronine 5 mcg tablet Commonly known as: CYTOMEL metoclopramide HCl 5 mg tablet Commonly known as: REGLAN mirtazapine 15 mg tablet Commonly known as: REMERON Take 1 tablet by mouth daily at bedtime. ondansetron 4 mg tablet Commonly known as: ZOFRAN Take 1 tablet by mouth every 8 hours as needed for nausea/vomiting. pantoprazole 40 mg Grps Commonly known as: PROTONIX polyethylene glycol 3350 17 gram/dose powder Commonly known as: MIRALAX Take 17 g by mouth twice daily. reduced the dose or stop if (more content not included)... Normal [facility] 05-28-2023 [facility] Telephone ([facility]) ---- ABBEY GARCIA ([id number]) 1990 F T Date Time Provider Department 05/28/23 DEACON KAT [facility] During your visit today, we recorded the following information about you: Allergies As of Date: 05/28/2023 Noted Allergy Reaction ADHESIVE TAPE-SILICONES 02/07/2020 5 - Intolerance Comments: Sensitive to certain adhesive tapes. Redness and itchy. CODEINE 10/04/2019 8 - GI Upset NSAIDS (NON-STEROIDAL ANTI-INFLAM* 022 15 - Contraindication-Me dical Nance* Comments: S/p RYGB Date Reviewed: 05/28/2023 Reviewed by: Vucek, Montrell, RN - Fully Assessed Order(s):nutritiona l supplements (NUTREN 2.0) 0.08 gram-2 kcal/mL liqd45 mL/hr by FEEDING TUBE route once daily. Run for 18 hours, off 6 hours.Disp: [id number] mLRfl: 3 Prescriptions as of 05/28/2023 - linaCLOtide (LINZESS) 290 mcg capsule Take 1 capsule by mouth daily at 6 am. - methocarbamol (ROBAXIN) 500 mg tablet Take 1.5 tablets (750mg) by mouth three times a day. - nutritional supplements (NUTREN 2.0) 0.08 gram-2 kcal/mL liqd 45 mL/hr by FEEDING TUBE route once daily. Run for 18 hours, off 6 hours. - nutritional supplements (NUTREN 1.5) 0.07 gram-1.5 kcal/mL liqd TF for PEG-J Rate: 45cc/hr - scopolamine (TRANSDERM-SCOP) patch 1.5 mg/72 hr (delivers 1 mg over 3 days) Apply 1 Patch as directed every 72 hours for 12 days. - prochlorperazine (COMPAZINE) 10 mg tablet Take 1 tablet by mouth every 6 hours for 14 days. - ondansetron (ZOFRAN) 4 mg tablet Take 1 tablet by mouth every 8 hours as needed for nausea/vomiting. - nutritional supplements (NUTREN 1.5) 0.07 gram-1.5 kcal/mL liqd 45 mL/hr by FEEDING TUBE route continuous. - escitalopram oxalate (LEXAPRO) 20 mg tablet take 1 tablet daily - albuterol HFA (PROVENTIL HFA, VENTOLIN HFA) 90 mcg/actuation inhaler Inhale 2 Puffs as instructed every 4 hours as needed for wheezing/shortness of breath. - fluticasone-salmete rol (ADVAIR DISKUS) 100-50 mcg/dose inhaler Inhale 1 Puff as instructed every 12 hours. - pantoprazole (PROTONIX) 40 mg grps Take 40 mg by mouth daily before breakfast. - metoclopramide HCl (REGLAN) 5 mg tablet Take 5 mg by mouth before meals and at bedtime. - mirtazapine (REMERON) 15 mg tablet Take 1 tablet by mouth daily at bedtime. - acetaminophen (TYLENOL) 500 mg tablet Take 2 tablets by mouth every 6 hours as needed for pain or fever (specify). - docusate sodium (COLACE) 100 mg capsule Take 1 capsule by mouth three times daily. decrease the dose or stop for diarrhea - polyethylene glycol 3350 (MIRALAX) 17 gram/dose [...] 100 mg by mouth twice daily. - levothyroxine (SYNTHROID) 100 mcg tablet Take 1 tablet by mouth once daily. - liothyronine (CYTOMEL) 5 mcg tablet Take 5 mcg by mouth once daily. Problem List As Of Date 05/28/2023 Noted Resolved Nausea [R11.0] 09/25/2019 Regurgitation of food [R11.10] 09/25/2019 [...] [R11.2] 06/20/2022 06/23/2022 Constipation [K59.00] 06/21/2022 Bipolar disorder (HCC) [F31.9] 06/21/2022 History (more content not included)... Normal [facility] Magnesium SerPl-mCncon 05-27 Magnesium [Mass/Vol] 1.9 mg/dL Normal 1.7-2.3 [facility] Comment on above: Order Comment: Speci men Type: BLOOD SPECIMENOrdering Facility: [facility] Address: [address] [place] [address] Performed By: #### 1 9123-9, 2777-1, 78246-3 ####[facility] [id number] [place] [address] [place] NURSING PROGon 05-28-2023 NURSING PROG HNO ID: [id number] Author: MONTRELL GIORDANO, DEE Service: Nursing Author Type: Registered Nurse Type: Nursing Progress Note Filed: 05/28/2023 12:54 Note Text: Other: 12:55 : Pt d/c in stable condition. Follow-up questions answered. transporting home. Normal [facility] Phosphate SerPl-mCncon 05-27 Phosphate [Mass/Vol] 2.3 mg/dL Low 2.7-4.8 [facility] Comment on above: Order Comment: Speci men Type: BLOOD SPECIMENOrdering Facility: [facility] Address: [address] [place] [address] Performed By: #### 1 9123-9, 2777-1, 91410-4 ####[facility] [id number] [place] [address] [place] Basic metabolic 2000 panelon 05-27-2023 Anion gap [Moles/Vol] 10 mmol/L Normal 9-18 [facility] Comment on above: Order Comment: Speci men Type: BLOOD SPECIMEN Order[facility] Address: [address] [place] [address] Performed By: #### H CG #### [facility] CLIA [id number] [place] [address] [place] Calcium [Mass/Vol] 8.9 mg/dL Normal 8.5-10.2 [facility] Comment on above: Order Comment: Speci men Type: BLOOD SPECIMEN Ordering Facility[facility] Address: [address] [place] [address] Performed By: #### H CG #### [facility] CLIA [id number] [place] [address] [place] Chloride [Moles/Vol] 104 mmol/L Normal 97-105 [facility] Comment on above: Order Comment: Speci men Type: BLOOD SPECIMEN Order[facility] Address: [address] [place] [address] Performed By: #### H CG #### [facility] CLIA [id number] [place] [address] [place] CO2 [Moles/Vol] 25 mmol/L Normal 22-30 [facility] Comment on above: Order Comment: Speci men Type: BLOOD SPECIMEN Order[facility] Facility[facility] Address: [address] [place] [address] Performed By: #### H CG #### [facility] CLIA [id number] [place] [address] [place] Creatinine [Mass/Vol] 0.57 mg/dL Low 0.58-0.96 [facility] Comment on above: Order Comment: Geraldo marrero Type: BLOOD SPECIMEN Ordering Facility: [facility] Address: [address] [place] [address] Performed By: #### H CG #### [facility] CLIA [id number] [address] [place] [address] OF [facility] Creatinine and Glomerular filtration rate.predicted panel (S/P/Bld) 122 mL/min/1.73m??? Normal >=60 [facility] Comment on above: Order Comment: Geraldo marrero Type: BLOOD SPECIMEN Ordering Facility: [facility] Address: [address] [place] [address] Result Comment: Jessica mated Glomerular Filtration Rate (eGFR) is calculated using the 2020 CKD-EPI creatinine equation. This equation utilizes serum creatinine, sex, and age as parameters. The creatinine assay has traceable calibration to isotope dilution-mass spectrometry. Refer to KDIGO guidelines for clinical interpretation. In patients with unstable renal function, e.g. those with acute kidney injury, the eGFR may not accurately reflect actual GFR. Performed By: #### H CG #### [facility] CLIA [id number] [address] [place] [address] [place] Glucose [Mass/Vol] 101 mg/dL High 74-99 [facility] Comment on above: Order Comment: Geraldo marrero Type: BLOOD SPECIMEN Order[facility] Facility[facility] Address: [address] [place] [address] Result Comment: The [place] [employer] (ADA) provides guidance for cutoff [...] Standards of Medical Care in Diabetes 2016, [place] [employer]. Diabetes Care. 2016.39(Suppl 1). Performed By: #### H CG #### [facility] CLIA [id number] [address] [place] [address] [place] Potassium [Moles/Vol] 4.0 mmol/L Normal 3.7-5.1 [facility] Comment on above: Order Comment: Speci men Type: BLOOD SPECIMEN [facility] Address: [address] [place] [address] Performed By: #### H CG #### [facility] CLIA [id number] [address] [place] [address] [place] Sodium [Moles/Vol] 139 mmol/L Normal 136-144 [facility] Comment on above: Order Comment: Speci men Type: BLOOD SPECIMEN [facility] Address: [address] [place] [address] Performed By: #### H CG #### [facility] CLIA [id number] [address] [place] [address] [place] Urea nitrogen [Mass/Vol] 6 mg/dL Low 7-21 [facility] Comment on above: Order Comment: Speci men Type: BLOOD SPECIMEN Order[facility] Facility[facility] Address: [address] [place] [address] Performed By: #### H CG #### [facility] CLIA [id number] [address] [place] [address] [place] CBC panel Auto (Bld)on 05-26 Erythrocyte distribution width (RBC) [Ratio] 13.5 % Normal 11.5-15.0 [facility] Comment on above: Order Comment: Speci men Type: BLOOD SPECIMEN [facility] Address: [address] [place] [address] Performed By: #### 5 8410-2 #### [facility] CLIA [id number] [address] [place] [address] [place] Hematocrit (Bld) [Volume fraction] 36.5 % Normal 36.0-46.0 [facility] Comment on above: Order Comment: Speci men Type: BLOOD SPECIMEN [facility] Address: [address] [place] [address] Performed By: #### 5 8410-2 #### [facility] CLIA [id number] [address] [place] [address] [place] Hemoglobin (Bld) [Mass/Vol] 12.8 g/dL Normal 11.5-15.5 [facility] Comment on above: Order Comment: Speci men Type: BLOOD SPECIMEN [facility] Address: [address] [place] [address] Performed By: #### 5 8410-2 #### [facility] CLIA [id number] [address] [place] [address] [place] MCH (RBC) [Entitic mass] 30.9 pg Normal 26.0-34.0 [facility] Comment on above: Order Comment: Speci men Type: BLOOD SPECIMEN [facility] Address: [address] [place] [address] Performed By: #### 5 8410-2 #### [facility] CLIA [id number] [address] [place] [address] [place] MCHC (RBC) [Mass/Vol] 35.1 g/dL Normal 30.5-36.0 [facility] Comment on above: Order Comment: Speci men Type: BLOOD SPECIMEN [facility] Facility[facility] Address: [address] [place] [address] Performed By: #### 5 8410-2 #### [facility] CLIA [id number] [address] [place] [address] [place] MCV (RBC) [Entitic vol] 88.2 fL Normal 80.0-100.0 [facility] Comment on above: Order Comment: Speci men Type: BLOOD SPECIMEN [facility] Address: [address] [place] [address] Performed By: #### 5 8410-2 #### [facility] CLIA [id number] [address] [place] [address] [place] Nucleated RBC (Bld) [#/Vol] 10*3/uL Normal <0.01 [facility] Comment on above: Order Comment: Speci men Type: BLOOD SPECIMEN [facility] Facility[facility] Address: [address] [place] [address] Performed By: #### 5 8410-2 #### [facility] CLIA [id number] [address] [place] [address] [place] Platelet mean volume (Bld) [Entitic vol] 11.5 fL Normal 9.0-12.7 [facility] Comment on above: Order Comment: Speci men Type: BLOOD SPECIMEN [facility] Facility[facility] Address: [address] [place] [address] Performed By: #### 5 8410-2 #### [facility] CLIA [id number] [address] [place] [address] [place] Platelets (Bld) [#/Vol] 205 10*3/uL Normal 150-400 [facility] Comment on above: Order Comment: Speci men Type: BLOOD SPECIMEN [facility] Facility[facility] Address: [address] [place] [address] Performed By: #### 5 8410-2 #### [facility] CLIA [id number] [address] [place] [address] [place] RBC (Bld) [#/Vol] 4.14 10*6/uL Normal 3.90-5.20 [facility] Comment on above: Order Comment: Speci men Type: BLOOD SPECIMEN [facility] Address: [address] [place] [address] Performed By: #### 5 8410-2 #### [facility] CLIA [id number] [address] [place] [address] [place] WBC (Bld) [#/Vol] 6.24 10*3/uL Normal 3.70-11.00 [facility] Comment on above: Order Comment: Speci men Type: BLOOD SPECIMEN [facility] Address: [address] [place] [address] Performed By: #### 5 8410-2 #### [facility] CLIA [id number] [address] [place] [address] [place] Magnesium SerPl-mCncon 05-26 Magnesium [Mass/Vol] 1.8 mg/dL Normal 1.7-2.3 [facility] Comment on above: Order Comment: Speci men Type: BLOOD SPECIMEN [facility] Address: [address] [place] [address] Performed By: #### H CG #### [facility] CLIA [id number] [address] [place] [id number] [place] NURSING PROGon 05-27-2023 NURSING PROG HNO ID: [id number] Author: EH KIMBALL RN Service: Nursing Author Type: Registered Nurse Type: Nursing Progress Note Filed: 05/27/2023 17:35 Note Text: 1330 TF Nutren 2.0 started at goal rate 45ml/hr. Abdominal binder applied. 1609 Pt tolerating TF. Reporting passing gas but no BM yet. C/o 4/10 abd pain and mild cramps. wctm 1732 Pt c/o 7/10 increased abd sharp pain. Per patient it feels like her abd is ripping apart and she feels stabbing pain whenever she move. Abdominal binder in place. Will medicate per APR. Normal [facility] NUTRITIONon 05-27-2023 NUTRITION HNO ID: [id number] Author: JENI FIERRO RD Service: Nutrition Therapy Author Type: Registered Dietitian Type: Nutrition Filed: 05/27/2023 10:58 Note Text: NUTRITION THERAPY PROGRESS NOTE SERVICE DATE: 05/27/2023 SERVICE TIME: 10:57 AM Nutrition Assessment: Recommended Malnutrition Diagnosis: Mild Protein-Calorie Malnutrition (05/26/23 1454 : Jeni Fierro RD) Estimated kilocalorie needs: 9935-1404 Calorie Calculation Method: 20-25 kcals/kg Estimated protein needs (grams): 75-113 Grams protein determined by: 1.0 - 1.5 g/kg Care Plan: Continue current diet Supplements: Ensure Max Enteral Nutrition Tube Feeding Formula Type: Nutren 2.0 Goal Rate (mL/hr x hours): 45 ml x 18hrs to provide 1620 kcal and 68 g protein Water Flush Volume (mL x frequency: 100 cc Q6H Recommended Enteral Access: PEJ Monitor and Evaluation: Meet greater than 75% of estimated needs, Monitor tolerance to tube feeding, Monitor bowel function, Monitor fluid/electrolyte balance, Monitor labs, I/Os, vital signs, weight Interval History: Received secure chat from RN about pt requesting bolus feeds d/t her lifestyle at home. Pt has PEJ so unable to bolus but able to adjust formula and hours without increasing rate much for tolerance concerns so pt can be unhooked from feedings 6 hrs a day. Reached out to surgery. Anthropometrics: Height: 167.6 cm (5' 6 ) Weight: 74.8 kg (165 lb) Dosing Weight: 74.8 kg (165 lb) Body mass index is 26.63 kg/m?. Intake History: Current Nutrition Intake: Greater than 75% estimated energy needs Current Intake Over time: (1 day via TF) Average Daily Calorie Intake (kcal): 1620 kcal Average Daily Protein Intake (gm): 73 gm Average intake over: (1 day) Diet Orders (From admission, onward) Start Ordered 05/26/23 1515 DIET SUPPLEMENTS START NOW Question Answer Comment Supplement 1 (19 years and up) ENSURE MAX CHOCOLATE Supplement 1 Frequency 5. DINNER 05/26/23 1506 05/26/23 1445 DIET TUBE FEED - CONTIN WITH TRAY START NOW Question Answer Comment TF Product (26 years and up) NUTREN 1.5 [place] Approved Secondary TF Product (Do Not Change) Osmolite 1.5 TF Total mL per 24 hours 1080 Number of Liter Bags 1 TF Goal Rate (mL/hr) 45 TF Route JEJUNOSTOMY TF Initial Rate (mL/hr) 10 TF Advance by (mL/hr) 10 TF Advance every (hrs) 4 TF Water Flush Amount (mL) 50 TF Water Flush Frequency Every 4 Hours Gastro Intestinal FIBER CONTROLLED 05/26/23 1431 MNT Billing: $ Reassessment: 1-15 minutes SIGNATURE: Jeni Fierro, ,RD,LD,[facility] PATIENT NAME: Abbey Garcia DATE: May 27, 2023 TIME: 10:57 AM Normal [facility] Phosphate SerPl-mCncon 05-26 Phosphate [Mass/Vol] 2.4 mg/dL Low 2.7-4.8 [facility] Comment on above: Order Comment: Speci men Type: BLOOD SPECIMEN Ordering Facility: [facility] Address: [address] [place] [address] Performed By: #### H CG #### [facility] CLIA [id number] [address] [place] [address] [place] ALLIED HEALTHon 05-26-2023 ALLIED HEALTH HNO ID: [id number] Author: RAJNI SANTIAGO RT(Gregory) Service: Radiology Author Type: Technologist Type: Allied Health Filed: 05/26/2023 06:58 Note Text: Radiology Service Progress Note PATIENT NAME: Abbey Garcia DATE OF SERVICE: May 26, 2023 TIME: 6:58 AM PATIENT IDENTITY VERIFICATION COMPLETED USING TWO (2) IDENTIFIERS: Name and Date of confirmed by patient verbally and Name and Date of confirmed by identification band. FALL SCREENING: Has the patient had 2 falls in the last year or 1 fall with injury or currently using an Ambulatory Assistive Device (Walker, Cane, Wheelchair, Crutches, etc.)? Inpatient: Screened on floor PATIENT GENDER DATA: Female. status: : No status: NO. PATIENT RELEVANT IMPLANT DATA REVIEWED: Not Applicable PATIENT PRESENTS WITH AN IMPLANTABLE OR ATTACHED THERAPY ASSISTANT: No RADIOLOGY DEPARTMENT: General X-ray: Exam(s) Completed: Abdomen X-Ray: Abdomen PERIPHERAL IV DATA: Not applicable SIGNED BY: RT Aditya(R) May 26, 2023 6:58 AM Normal [facility] Basic metabolic 2000 panelon 05-26-2023 Anion gap [Moles/Vol] 13 mmol/L Normal 9-18 [facility] Comment on above: Order Comment: Speci men Type: BLOOD SPECIMEN Ordering Facility: [facility] Address: [address] [place] [address] Performed By: #### 5 7021-8 #### [facility] CLIA [id number] [address] [place] [address] [place] Calcium [Mass/Vol] 9.0 mg/dL Normal 8.5-10.2 [facility] Comment on above: Order Comment: Speci men Type: BLOOD SPECIMEN Ordering Facility: [facility] Address: [address] [place] [address] Performed By: #### 5 7021-8 #### [facility] CLIA [id number] [address] [place] [address] [place] Chloride [Moles/Vol] 103 mmol/L Normal 97-105 [facility] Comment on above: Order Comment: Speci men Type: BLOOD SPECIMEN Ordering Facility: [facility] Address: [address] [place] [address] Performed By: #### 5 7021-8 #### [facility] CLIA [id number] [address] [place] [address] [place] CO2 [Moles/Vol] 20 mmol/L Low 22-30 [facility] Comment on above: Order Comment: Speci men Type: BLOOD SPECIMEN Ordering Facility: [facility] Address: [address] [place] [address] Performed By: #### 5 7021-8 #### [facility] CLIA [id number] [address] [place] [address] [place] Creatinine [Mass/Vol] 0.68 mg/dL Normal 0.58-0.96 [facility] Comment on above: Order Comment: Speci men Type: BLOOD SPECIMEN Ordering Facility: [facility] Address: [address] [place] [address] Performed By: #### 5 7021-8 #### [facility] CLIA [id number] [address] [place] [address] [place] Creatinine and Glomerular filtration rate.predicted panel (S/P/Bld) 117 mL/min/1.73m??? Normal >=60 [facility] Comment on above: Order Comment: Speci men Type: BLOOD SPECIMEN Ordering Facility: [facility] Address: [address] [place] [address] Result Comment: Jessica mated Glomerular Filtration Rate (eGFR) is calculated using the 2020 CKD-EPI creatinine equation. This equation utilizes serum creatinine, sex, and age as parameters. The creatinine assay has traceable calibration to isotope dilution-mass spectrometry. Refer to KDIGO guidelines for clinical interpretation. In patients with unstable renal function, e.g. those with acute kidney injury, the eGFR may not accurately reflect actual GFR. Performed By: #### 5 7021-8 #### [facility] CLIA [id number] [address] [place] [address] [place] Glucose [Mass/Vol] 71 mg/dL Low 74-99 [facility] Comment on above: Order Comment: Geraldo marrero Type: BLOOD SPECIMEN Ordering Facility: [facility] Address: [address] [place] [address] Result Comment: The [place] Diabetes [employer] (ADA) provides guidance for cutoff [...] Standards of Medical Care in Diabetes 2016, [place] [employer]. Diabetes Care. 2016.39(Suppl 1). Performed By: #### 5 7021-8 #### [facility] CLIA [id number] [address] [place] [address] [place] Potassium [Moles/Vol] 4.3 mmol/L Normal 3.7-5.1 [facility] Comment on above: Order Comment: Geraldo marrero Type: BLOOD SPECIMEN Ordering Facility: [facility] Address: [address] [place] [address] Performed By: #### 5 7021-8 #### [facility] CLIA [id number] [address] [place] [address] [place] Sodium [Moles/Vol] 136 mmol/L Normal 136-144 [facility] Comment on above: Order Comment: Geraldo marrero Type: BLOOD SPECIMEN Ordering Facility: [facility] Address: [address] [place] [address] Performed By: #### 5 7021-8 #### [facility] CLIA [id number] [address] [place] [address] [place] Urea nitrogen [Mass/Vol] 10 mg/dL Normal 7-21 [facility] Comment on above: Order Comment: Speci men Type: BLOOD SPECIMEN Ordering Facility: [facility] Address: [address] [place] [address] Performed By: #### 5 7021-8 #### [facility] CLIA [id number] [address] [place] [address] [place] CBC panel Auto (Bld)on 05-25 Erythrocyte distribution width (RBC) [Ratio] 13.3 % Normal 11.5-15.0 [facility] Comment on above: Order Comment: Speci men Type: BLOOD SPECIMEN Ordering Facility: [facility] Address: [address] [place] [address] Performed By: #### 5 8410-2 #### [facility] CLIA [id number] [address] [place] [address] [place] Hematocrit (Bld) [Volume fraction] 33.8 % Low 36.0-46.0 [facility] Comment on above: Order Comment: Speci men Type: BLOOD SPECIMEN Ordering Facility: [facility] Address: [address] [place] [address] Performed By: #### 5 8410-2 #### [facility] CLIA [id number] [address] [place] [address] [place] Hemoglobin (Bld) [Mass/Vol] 11.5 g/dL Normal 11.5-15.5 [facility] Comment on above: Order Comment: Speci men Type: BLOOD SPECIMEN Ordering Facility: [facility] Address: [address] [place] [address] Performed By: #### 5 8410-2 #### [facility] CLIA [id number] [address] [place] [address] [place] MCH (RBC) [Entitic mass] 30.5 pg Normal 26.0-34.0 [facility] Comment on above: Order Comment: Speci men Type: BLOOD SPECIMEN Ordering Facility: [facility] Address: [address] [place] [address] Performed By: #### 5 8410-2 #### [facility] CLIA [id number] [place] [address] [place] MCHC (RBC) [Mass/Vol] 34.0 g/dL Normal 30.5-36.0 [facility] Comment on above: Order Comment: Speci men Type: BLOOD SPECIMEN Ordering Facility: [facility] Address: [address] [place] [address] Performed By: #### 5 8410-2 #### [facility] CLIA [id number] [address] [place] [address] [place] MCV (RBC) [Entitic vol] 89.7 fL Normal 80.0-100.0 [facility] Comment on above: Order Comment: Speci men Type: BLOOD SPECIMEN Ordering Facility: [facility] Address: [address] [place] [address] Performed By: #### 5 8410-2 #### [facility] CLIA [id number] [address] [place] [address] [place] Nucleated RBC (Bld) [#/Vol] 10*3/uL Normal <0.01 [facility] Comment on above: Order Comment: Speci men Type: BLOOD SPECIMEN Ordering Facility: [facility] Address: [address] [place] [address] Performed By: #### 5 8410-2 #### [facility] CLIA [id number] [address] [place] [address] [place] Platelet mean volume (Bld) [Entitic vol] 11.7 fL Normal 9.0-12.7 [facility] Comment on above: Order Comment: Speci men Type: BLOOD SPECIMEN Ordering Facility: [facility] Address: [address] [place] [address] Performed By: #### 5 8410-2 #### [facility] CLIA [id number] [address] [place] [address] [place] Platelets (Bld) [#/Vol] 181 10*3/uL Normal 150-400 [facility] Comment on above: Order Comment: Speci men Type: BLOOD SPECIMEN Ordering Facility: [facility] Address: [address] [place] [address] Performed By: #### 5 8410-2 #### [facility] CLIA [id number] [address] [place] [address] [place] RBC (Bld) [#/Vol] 3.77 10*6/uL Low 3.90-5.20 [facility] Comment on above: Order Comment: Speci men Type: BLOOD SPECIMEN Ordering Facility: [facility] Address: [address] [place] [address] Performed By: #### 5 8410-2 #### [facility] CLIA [id number] [address] [place] [address] [place] WBC (Bld) [#/Vol] 5.34 10*3/uL Normal 3.70-11.00 [facility] Comment on above: Order Comment: Speci men Type: BLOOD SPECIMEN Ordering Facility: [facility] Address: [address] [place] [address] Performed By: #### 5 8410-2 #### [facility] CLIA [id number] [address] [place] [address] [place] Magnesium SerPl-mCncon 05-25 Magnesium [Mass/Vol] 1.6 mg/dL Low 1.7-2.3 [facility] Comment on above: Order Comment: Speci men Type: BLOOD SPECIMEN Ordering Facility: [facility] Address: [address] [place] [address] Performed By: #### 5 7021-8 #### [facility] CLIA [id number] [address] [place] [address] [place] NUTRITIONon 05-26-2023 NUTRITION HNO ID: [id number] Author: JENI FIERRO RD Service: Nutrition Therapy Author Type: Registered Dietitian Type: Nutrition Filed: 05/26/2023 15:06 Note Text: NUTRITION THERAPY INITIAL ASSESSMENT SERVICE DATE: 05/26/2023 SERVICE TIME: 3:03 PM Nutrition Assessment: Recommended Malnutrition Diagnosis: Mild Protein-Calorie Malnutrition In the context of: Acute Illness or Injury Based on: Muscle Loss Nutrition Diagnosis: Problem: Suboptimal oral intake Related to: Change in GI tract motility As evidenced by: Medical condition, Procedure/surgery, Patient/family self-report, Food/nutrition related history Estimated kilocalorie needs: 5463-7394 Calorie Calculation Method: 20-25 kcals/kg Estimated protein needs (grams): 75-113 Grams protein determined by: 1.0 - 1.5 g/kg Care Plan: Continue current diet Supplements: Ensure Max - jonah Enteral Nutrition Tube Feeding Formula Type: Nutren 1.5 Goal Rate (mL/hr x hours): 45 ml/hr to provide 1620 kcal and 73 g protein Water Flush Volume (mL x frequency: 100 cc Q4H Recommended Enteral Access: PEJ Monitor and Evaluation: Meet greater than 75% of estimated needs, Monitor tolerance to tube feeding, Monitor bowel function, Monitor fluid/electrolyte balance, Monitor labs, I/Os, vital signs, weight HPI: 33 yo female admitted for PEJ placement after trial of corpak with TF. Hx of not tolerating oral diet and gastric bypass. Intake History: Nutrition Intake Prior to Admission: Less than 50% estimated energy needs greater than 7 days (prior to May) Current Nutrition Intake: Greater than 75% estimated energy needs Current Intake Over time: (past couple days via TF- s/p PEJ and TF restarted) Pt tolerating TF at 15 ml/hr so far. Taking a few bites of GI soft diet and agreeable to protein shakes. Discussed wt and does not want to weigh less than 160lbs. Also discussed that TF recs can be adjusted in the future if po intake or fluid intake improves. Pt stated understanding. BM+ yesterday per pt Diet Orders (From admission, onward) Start Ordered 05/26/23 1445 DIET TUBE FEED - CONTIN WITH TRAY START NOW Question Answer Comment TF Product (26 years and up) NUTREN 1.5 [place] Approved Secondary TF Product (Do Not Change) Osmolite 1.5 TF Total mL per 24 hours 1080 Number of Liter Bags 1 TF Goal Rate (mL/hr) 45 TF Route JEJUNOSTOMY TF Initial Rate (mL/hr) 10 TF Advance by (mL/hr) 10 TF Advance every (hrs) 4 TF Water Flush Amount (mL) 50 TF Water Flush Frequency Every 4 Hours Gastro Intestinal FIBER CONTROLLED 05/26/23 1431 Anthropometrics: Height: 167.6 cm (5' 6 ) Weight: 74.8 kg (165 lb) Dosing Weight: 74.8 kg (165 lb) Usual Weight: 83.9 kg (185 lb) Nov Usual Weight Obtained From: Chart Review Body mass index is 26.63 kg/m?. Weight change percentage over time: down 10.8% x past 6 months Weight Change: Clinically signficant weight loss Physical Exam: Subcutaneous fat loss: No fat loss Muscle loss: Mild Potential micronutrient deficiency: No deficiency identified Edema/Ascites: No edema GI Symptoms: None Stool Amount: WNL Functional Status: Unable to assess Potential Signs of Inflammation: Imaging studies, Chronic condition, Acute post-operative PCOS, gastric bypass MNT Billing: $ Initial Assessment: 1-15 minutes SIGNATURE: Jeni Fierro, ,RD,LD,[facility] PATIENT NAME: Abbey Garcia DATE: May 26, 2023 TIME: 3:03 PM Normal [facility] Phosphate SerPl-mCncon 05-25 Phosphate [Mass/Vol] 4.5 mg/dL Normal 2.7-4.8 [facility] Comment on above: Order Comment: Speci men Type: BLOOD SPECIMEN Ordering Facility[facility] Address: [address] [place] [address] Performed By: #### 5 7021-8 #### [facility] [place] [id number] [address] [place] [address] [place] XR ABDOMEN 1V SUPINEon 05-25 XR ABDOMEN 1V SUPINE * * *Final Report* * * DATE OF EXAM: May 26 2023 6:54AM FVX 5289 - XR ABDOMEN 1V SUPINE / PROCEDURE REASON: Nausea/vomiting * * * * Physician Interpretation * * * * EXAMINATION: XR ABDOMEN 1V SUPINE CLINICAL HISTORY: Nausea/vomiting, Nausea/Vomiting Technique: 2 supine frontal views of the abdomen Comparison: Outside hospital abdomen and pelvis CT 05/11/2023 RESULT: There is a percutaneous gastrostomy tube projecting over the LEFT mid abdomen. There is gaseous distention of the colon. Small bowel loops are also gas-filled but nondistended. No pneumatosis or gross pneumoperitoneum. IMPRESSION: There is gaseous distention of the colon. The small bowel is gas-filled but does not appear distended. This may represent a colonic ileus. Obstruction is not excluded. Recommend radiographic and/or clinical follow-up to resolution. Further evaluation with CT can also be considered. Filling Station Attendant: JUANCARLOS Transcribe Date/Time: May 26 2023 6:57A Dictated by : CATHI PENG MD This examination was interpreted and the report reviewed and electronically signed by: CATHI PENG MD on May 26 2023 7:00AM EST [id number] Normal [facility] ANES POSTPROC EVALon 024 ANES POSTPROC EVAL HNO ID: [id number] Author: KELBY QUEZADA MD Service: Anesthesiology Author Type: Anesthesiologist Type: Anesthesia Postprocedure Evaluation Filed: 05/25/2023 14:55 Note Text: POST ANESTHESIA EVALUATION NOTE : 1990 Procedure Summary Date: 05/25/23 Room / Location: [facility] Endoscopy - ENDO Anesthesia Start: 1358 Anesthesia Stop: 1455 Procedure: EGD - THERAPEUTIC, EUS, OR TUBE INTERVENTIONS Diagnosis: Feeding difficulties Intractable nausea and vomiting Decreased oral intake Scheduled Providers: Deacon Kat MD; Kelby Quezada MD Responsible Provider: Kelby Quezada MD Anesthesia Type: general ASA Status: 3 Anesthesia Type: general Airway Type: ETT Last Vitals Vitals Value Taken Time BP 142/89 05/25/23 1448 Temp 05/25/23 1455 Pulse 78 05/25/23 1455 Resp 14 05/25/23 1455 SpO2 100 % 05/25/23 1455 Vitals shown include unfiled device data. Post Anesthesia Patient Status Patient [...] of care. Anesthesia Observations No Documentation SIGNATURE: Kelby Quezada MD PATIENT NAME: Abbey Garcia DATE: May 25, 2023 TIME: 2:55 PM CSN: [id number] Normal [facility] ANES PRE-OPon 05-25-2023 ANES PRE-OP HNO ID: [id number] Author: KELBY QUEZADA MD Service: Anesthesiology Author Type: Anesthesiologist Type: Anesthesia Preprocedure Evaluation Filed: 05/25/2023 12:54 Note Text: ANESTHESIOLOGY DAY OF SURGERY NOTE : 1990 Procedure Information Date/Time: 05/25/23 1300 Scheduled providers: Deacon Kat MD; Kelby Quezada MD Procedure: EGD - THERAPEUTIC, EUS, OR TUBE INTERVENTIONS Location: [facility] Endoscopy - ENDO Estimated body mass index is 27.91 kg/m? as calculated from the following: Height as of 05/18/23: 167.6 cm (5' 6 ). Weight as of 05/18/23: 78.4 kg (172 lb 14.4 oz). Most recent hematocrit and potassium results: Hematocrit 36.0 05/20/2023 Hematocrit (POCT) 36 02/03/2020 Potassium 3.7 05/22/2023 Potassium (POCT) 3.6 02/03/2020 Relevant Problems ANESTHESIA [...] II. TM distance: >3 FB. Neck ROM: full. Mouth opening: adequate. Short neck: no. Thick neck: no DENTAL Normal dental observations. Dental findings: teeth intact. Additional exam findings: yes. CARDIOVASCULAR Normal cardiovascular observations. Rhythm: regular Rate: normal PULMONARY Normal pulmonary observations. Breath sounds clear to auscultation. II - ANESTHESIA PLAN ASA Score: 3 Anesthetic Plan: general Airway type: ETT The patient is not a current smoker. NPO Status: adequate Beta Blanka Monitoring Plan Monitoring plan: Standard ASA. Post Procedure Analgesic Plan Postoperative analgesic plan: multimodal analgesia. Informed Consent Anesthetic risks, benefits, alternatives, personnel and consent discussed: yes. Patient / Responsible Libertarian agrees to proceed: yes Patient / Surrogate agrees to blood products: Yes Significant changes in the patient condition since the History and Physical, not otherwise documented in primary service progress note: no. Potential Anesthesia issues that may suggest increased risk of complications or contraindication to planned procedure: none. Vitals Value Taken Time BP 127/90 05/25/23 1215 Pulse Resp 14 05/25/23 1215 Temp 36.4 ?C (97.5 ?F) 05/25/23 1215 SpO2 100 % 05/25/23 1215 Outpatient Medications as of 05/25/2023 Medication Sig - scopolamine (TRANSDERM-SCOP) patch 1.5 mg/72 hr (delivers 1 mg over 3 days) Apply 1 Patch as directed every 72 hours for 12 days. - prochlorperazine (COMPAZINE) 10 mg tablet Take 1 tablet by mouth every 6 hours for 14 days. - ondansetron (ZOFRAN) 4 mg tablet Take 1 tablet by mouth every 8 hours as needed for nausea/vomiting. - nutritional supplements (NUTREN 1.5) 0.07 gram-1.5 kcal/mL liqd 45 mL/hr by FEEDING TUBE route continuous. - methocarbamol (ROBAXIN) 500 mg tablet Take 1 tablet by mouth three times a day for 7 days. - linaCLOtide (LINZESS) 290 mcg capsule Take 1 capsule by mouth daily at 6 am. - escitalopram oxalate (LEXAPRO) 20 mg tablet take 1 tablet daily - albuterol HFA (PROVENTIL HFA, VENTOLIN HFA) 90 mcg/actuation inhaler Inhale 2 Puffs as instructed every 4 hours as needed for wheezing/shortness of breath. - fluticasone-salmete rol (ADVAIR DISKUS) 100-50 mcg/dose inhaler Inhale 1 Puff as instructed every 12 hours. - pantoprazole (PROTONIX) 40 mg grps Take 40 mg by mouth daily before breakfast. - metoclopramide HCl (REGLAN) 5 mg tablet Take 5 mg by mouth before meals and at bedtime. - mirtazapine (REMERON) 15 mg tablet Take 1 tablet by mouth daily at bedtime. - acetaminophen (TYLENOL) 500 mg tablet Take 2 tablets by mouth every 6 hours as needed for pain or fever (specify). - docusate sodium (COLACE) 100 mg capsule Take 1 capsule by mouth three times daily. decrease the dose or stop for diarrhea - polyethylene glycol 3350 (MIRALAX) 17 gram/dose [...] 100 mg by mouth twice daily. - levothyroxine (SYNTHROID) 100 mcg tablet Take 1 tablet by mouth once daily. - liothyronine (CYTOMEL) 5 mcg tablet Take 5 mcg by mouth once daily. No current facility-administer ed medications on file as of 05/25/2023. I have interviewed and examined the patient. I have reviewed the medical record and/or the pre-anesthesia evaluation, pertinent labs, and test results. This contains updated information obtained within 48 hours of Surgery/Procedure. SIGNATURE: I (more content not included)... Normal [facility] HISTORY PHYSICALon HISTORY PHYSICAL HNO ID: [id number] Author: HOUSTON CRESPO MD Service: General Surgery Author Type: Fellow Type: H&P Filed: 05/25/2023 18:31 Note Text: HISTORY AND PHYSICAL EXAMINATION SERVICE DATE: 05/25/2023 SERVICE TIME: 1600 PRIMARY CARE PHYSICIAN: Jaquan Morrow, SLIM, BETH, SLIM.BETH Subjective CHIEF COMPLAINT: Poor oral intake HPI: Ms. Garcia, a 33-year-old female with PMH anemia, PCOS, GERD, and chronic abdominal pain. PSH laparoscopic cholecystectomy in 2008, sleeve gastrectomy in 2020, conversion to gastric bypass in 2021, lap assisted ERCP with sphincterotomy in 2022, and MALS surgery in February 2023. Despite these surgeries, she continues to experience chronic postprandial pain and nausea. 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 She had a Corpak placed on 05/19 and TF started which she tolerated. She then presented today to endoscopy suit for PEJ placement. Procedure was done without complication and she was admitted for observation. FUNCTIONAL STATUS: Independent PAST MEDICAL HISTORY Diagnosis Date Anemia Takes Pro FE daily. 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 scopolamine (TRANSDERM-SCOP) patch 1.5 mg/72 hr (delivers 1 mg over 3 days), Apply 1 Patch as directed every 72 hours for 12 days., Disp: 4 Patch, Rfl: 0, Past Week prochlorperazine (COMPAZINE) 10 mg tablet, Take 1 tablet by mouth every 6 hours for 14 days., Disp: 56 tablet, Rfl: 0, 05/24/2023 ondansetron (ZOFRAN) 4 mg tablet, Take 1 tablet by mouth every 8 hours as needed for nausea/vomiting., Disp: 30 tablet, Rfl: 0, Past Week nutritional supplements (NUTREN 1.5) 0.07 gram-1.5 kcal/mL liqd, 45 mL/hr by FEEDING TUBE route continuous., Disp: 1080 mL, Rfl: 2, 05/24/2023 methocarbamol (ROBAXIN) 500 mg tablet, Take 1 tablet by mouth three times a day for 7 days., Disp: 21 tablet, Rfl: 0, 05/24/2023 linaCLOtide (LINZESS) 290 mcg capsule, Take 1 capsule by mouth daily at 6 am., Disp: 30 capsule, Rfl: 2, 05/24/2023 escitalopram oxalate (LEXAPRO) 20 mg tablet, take 1 tablet daily, Disp: 90 tablet, Rfl: 1, 05/24/2023 albuterol HFA (PROVENTIL HFA, VENTOLIN HFA) 90 mcg/actuation inhaler, Inhale 2 Puffs as instructed every 4 hours as needed for wheezing/shortness of breath., Disp: , Rfl: , Past Week fluticasone-salmete rol (ADVAIR DISKUS) 100-50 mcg/dose inhaler, Inhale 1 Puff as instructed every 12 hours., Disp: , Rfl: , Past Week pantoprazole (PROTONIX) 40 mg grps, Take 40 mg by mouth daily before breakfast., Disp: , Rfl: , 05/24/2023 metoclopramide HCl (REGLAN) 5 mg tablet, Take 5 mg by mouth before meals and at bedtime., Disp: , Rfl: , 05/24/2023 mirtazapine (REMERON) 15 mg tablet, Take 1 tablet by mouth daily at bedtime., Disp: 90 tablet, Rfl: 1, 05/24/2023 acetaminophen (TYLENOL) 500 mg tablet, Take 2 tablets by mouth every 6 hours as needed for pain or fever (specify)., Disp: , Rfl: , 05/23/2023 docusate sodium (COLACE) 100 mg capsule, Take 1 capsule by mouth three times daily. decrease the dose or stop for diarrhea, Disp: 90 capsule, Rfl: 0, 05/23/2023 polyethylene glycol 3350 (MIRALAX) 17 gram/dose powder, Take 17 g by mouth twice daily. reduced the dose or stop if you get diarrhea and restart after 48 hours to maintain 'at least' once a day bowel movement. Dissolve dose in 4 - 8 ounces of liquid and take as directed., Disp: 507 g, Rfl: 1, Past Week topiramate (TOPAMAX) 100 mg tablet, Take 100 mg by mouth twice daily., Disp: , Rfl: , 05/24/2023 levothyroxine (SYNTHROID) 100 mcg tablet, Take 1 tablet by mouth once daily., Disp: 90 tablet, Rfl: 3, 05/23 (more content not included)... Normal [facility] HISTORY PHYSICAL HNO ID: [id number] Author: DEACON KAT MD Service: General Surgery Author Type: Resident Type: H&P Filed: 06/01/2023 11:55 Note Text: ---- Attestation signed by Deacon Kat MD at 06/01/2023 11:55 AM Deacon Kat MD ---- UPDATED HISTORY AND PHYSICAL EXAMINATION SERVICE DATE: 05/25/2023 SERVICE TIME: 10:44 AM PHYSICAL EXAM MUST BE COMPLETED ON ADMISSION The History and Physical (completed in the past 30 days) has been reviewed and the patient has been examined. The contents accurately reflect the patient's condition with the following additions or revisions since the HANDP was completed. Examination indicates no changes. This HANDP can be found in the Electronic Medical Record dated 05/19. SIGNATURE: Mohit Dinero MD PATIENT NAME: Abbey Garcia DATE: May 25, 2023 TIME: 10:43 AM Normal [facility] NURSING PROGon 05-25-2023 NURSING PROG HNO ID: [id number] Author: EH KIMBALL, RN Service: Nursing Author Type: Registered Nurse Type: Nursing Progress Note Filed: 05/25/2023 18:10 Note Text: Transfer Note: PATIENT NAME: Abbey Garcia Patient Location: [facility] 1 Room: [place] [address] Patient transferred into room/unit PK1 in stable condition. Actions taken: Patient belongings with patient. Oriented to the room. Pt c/o 7/10 abd pain. Does not want to take tylenol and reported oxycodone and morphine helps with her pain. She has no PRN pain med except tylenol. Will let attending know. [facility] NURSING PROG HNO ID: [id number] Author: CECY RUEDA, RN Service: Nursing Author Type: Registered Nurse Type: Nursing Progress Note Filed: 05/25/2023 12:14 Note Text: PATIENT EDUCATION TOPIC: PROCEDURE / SURGERY: Pre Procedure Teaching: EGD PATIENT NAME: Abbey Garcia PATIENT LOCATION: Room/bed info not found READINESS TO LEARN COGNITIVE ABILITY: Alert and oriented MOTIVATION TO LEARN: Interested FAMILY SUPPORT: Unable to assess - Family not present INSTRUCTION PROVIDED TO: Patient PATIENT LEARNS BEST BY: Written Instruction - Hand-outs Verbal Instruction FACTORS AFFECTING LEARNING: None PHYSICAL LIMITATIONS AFFECTING LEARNING: None LEARNING RESPONSE DIAGNOSIS: ADULT: EGD PATIENT/FAMILY RESPONSE: Verbalizes understanding of: PRE-PROCEDURE INSTRUCTIONS-Correc t action to take to follow pre-procedure instructions METHOD OF INSTRUCTION: Verbal instruction FOLLOW-UP PLAN: TBD INSTRUCTIONAL AIDS USED: NA SUPPLEMENTAL MATERIAL PROVIDED TO PATIENT: None REFERRAL (RECOMMENDATION): None Electronically Signed By: Cecy Rueda [facility] Upper GI endoscopyon 024 Upper GI endoscopy [facility] Gastrointestinal Endoscopy Patient Name: Abbey Garcia Procedure Date: 05/25/2023 12:15 PM Date of : 1990 Admit Type: Outpatient Age: 33 Room: [place] [address] Gender: Female Note Status: Finalized Attending MD: Deacon Kat MD, [id number] Procedure: Upper GI endoscopy Indications: Place PEG-J because patient is unable to eat, Assessment following Tan-en-Y gastrojejunostomy, Failure to thrive, Nausea with vomiting Providers: Deacon Kat MD, Montrell Woods, DEE, Serena Scott RN (Assisting Nurse) Patient Profile: This is a 33 year old female. Refer to note in patient chart for documentation of history and physical. Referring Physician: Deacon Kat MD (Referring MD) Medicines: Monitored Anesthesia Care, General Anesthesia Complications: No immediate complications. Procedure: [...] by the physician, the nurse and the outdoor pursuits instructor in the endoscopy suite. Mental Status Examination: alert and oriented. Airway Examination: normal oropharyngeal airway and neck mobility. Respiratory Examination: clear to auscultation. CV Examination: normal. Prophylactic Antibiotics: The patient does not require prophylactic antibiotics. Prior Anticoagulants: The patient has taken no anticoagulant or antiplatelet agents. ASA Grade Assessment: III - A patient with severe systemic disease. After reviewing the risks and [...] and oxygen saturations were monitored continuously. The was introduced through the mouth, and advanced to the efferent jejunal loop. The upper GI endoscopy was accomplished without difficulty. The patient tolerated the procedure well. Moderate Sedation: General anesthesia MAC anesthesia was administered by the anesthesia team. Total Procedure Duration: 0 hours 15 minutes 41 seconds Findings: The examined esophagus was normal. 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 The gastrojejunal anastomosis was characterized by healthy appearing mucosa. This was traversed. The xendi-vt-mmmhyuv limb was characterized by healthy appearing mucosa, corpac in place. The patient was placed in the supine position for PEJ placement. The jejunum was insuflated to appose the jejunum and abdominal eli. A site was located in the efferent limb 20 cm beyond GJ with excellent transillumination and manual external pressure for placement. The abdominal wall was marked and prepped in a sterile manner. The area was anesthetized with 3 mL of 0.5% lidocaine then used for a Safe-Tract test. The trocar needle was introduced through the abdominal wall and into the stomach under direct endoscopic view. A snare was introduced through the endoscope and opened in the gastric lumen. The guide wire was passed through the trocar and into the open snare. The snare was closed around the guide wire. The endoscope and snare were removed, pulling the wire out through the mouth. A skin incision was made at the site of needle insertion. The externally removable 20 Fr EndoVive Safety gastrostomy tube was lubricated. The J-tube was tied to the guide wire and pulled through the mouth and into the stomach. The trocar needle was removed, and the gastrostomy tube was pulled out from the stomach through the skin. The external bumper was attached to the gastrostomy tube, and the tube was cut to remove the guide wire. The final position of the gastrostomy tube was confirmed by relook endoscopy, and skin marking noted to be 5 cm at the external bumper. The final tension and compression of the abdominal wall by the PEJ tube and external bumper were checked and revealed that the bumper was loose and not touching the skin and that the PEJ bumper was loose and lightly touching the stomach. The feeding tube was capped, and the tube site cleaned and dressed. Impression: - Normal e (more content not included)... Normal [facility] CNPNon 05-24-2023 CNPN Normal [facility] Home Health Recordson 2023 Home Health Records [id number] Normal [facility] Basic metabolic 2000 panelon 05-22-2023 Anion gap [Moles/Vol] 10 mmol/L Normal 9-18 [facility] Comment on above: Order Comment: Speci men Type: BLOOD SPECIMEN Ordering Facility: [facility] Address: [address] [place] [address] Performed By: #### 5 8410-2 #### [facility] CLIA [id number] [address] [place] [address] [place] Calcium [Mass/Vol] 8.9 mg/dL Normal 8.5-10.2 [facility] Comment on above: Order Comment: Speci men Type: BLOOD SPECIMEN Ordering Facility: [facility] Address: [address] [place] [address] Performed By: #### 5 8410-2 #### [facility] CLIA [id number] [address] [place] [address] [place] Chloride [Moles/Vol] 110 mmol/L High 97-105 [facility] Comment on above: Order Comment: Speci men Type: BLOOD SPECIMEN Ordering Facility: [facility] Address: [address] [place] [address] Performed By: #### 5 8410-2 #### [facility] CLIA [id number] [address] [place] [address] [place] CO2 [Moles/Vol] 23 mmol/L Normal 22-30 [facility] Comment on above: Order Comment: Speci men Type: BLOOD SPECIMEN Ordering Facility: [facility] Address: [address] [place] [address] Performed By: #### 5 8410-2 #### [facility] CLIA [id number] [address] [place] [address] [place] Creatinine [Mass/Vol] 0.73 mg/dL Normal 0.58-0.96 [facility] Comment on above: Order Comment: Speci men Type: BLOOD SPECIMEN Ordering Facility: [facility] Address: [address] [place] [address] Performed By: #### 5 8410-2 #### [facility] CLIA [id number] [address] [place] [address] Creatinine and Glomerular filtration rate.predicted panel (S/P/Bld) 111 mL/min/1.73m??? Normal >=60 [facility] Comment on above: Order Comment: Speci men Type: BLOOD SPECIMEN Ordering Facility: [facility] Address: [address] [place] [address] Result Comment: Jessica mated Glomerular Filtration Rate (eGFR) is calculated using the 2020 CKD-EPI creatinine equation. This equation utilizes serum creatinine, sex, and age as parameters. The creatinine assay has traceable calibration to isotope dilution-mass spectrometry. Refer to KDIGO guidelines for clinical interpretation. In patients with unstable renal function, e.g. those with acute kidney injury, the eGFR may not accurately reflect actual GFR. Performed By: #### 5 8410-2 #### [facility] CLIA [id number] [address] [place] [address] [place] Glucose [Mass/Vol] 73 mg/dL Low 74-99 [facility] Comment on above: Order Comment: Geraldo marrero Type: BLOOD SPECIMEN Ordering Facility: [facility] Address: [address] [place] [address] Result Comment: The [place] Diabetes Association (ADA) provides guidance for cutoff [...] Standards of Medical Care in Diabetes 2016, [place] [employer]. Diabetes Care. 2016.39(Suppl 1). Performed By: #### 5 8410-2 #### [facility] CLIA [id number] [address] [place] [address] [place] Potassium [Moles/Vol] 3.7 mmol/L Normal 3.7-5.1 [facility] Comment on above: Order Comment: Geraldo marrero Type: BLOOD SPECIMEN Ordering Facility: [facility] Address: [address] [place] [address] Performed By: #### 5 8410-2 #### [facility] CLIA [id number] [address] [place] [address] [place] Sodium [Moles/Vol] 143 mmol/L Normal 136-144 [facility] Comment on above: Order Comment: Geraldo marrero Type: BLOOD SPECIMEN Ordering Facility: [facility] Address: [address] [place] [address] Performed By: #### 5 8410-2 #### [facility] CLIA [id number] [address] [place] [address] [place] Urea nitrogen [Mass/Vol] 6 mg/dL Low 7-21 [facility] Comment on above: Order Comment: Geraldo men Type: BLOOD SPECIMEN Ordering Facility: [facility] Address: [address] [place] [address] Performed By: #### 5 8410-2 #### [facility] CLIA [id number] [address] [place] [address] [place] CASE MANAGEMon 05-22-2023 CASE MANAGEM HNO ID: [id number] Author: NADIYA LOVE RN Service: ? Author Type: Registered Nurse Type: Care Mgt Progress Note Filed: 05/22/2023 11:09 Note Text: CARE MANAGEMENT DISCHARGE NOTE SERVICE DATE: May 22, 2023 SERVICE TIME: 10:57 am Admission Date: 05/18/2023 LOS: 4 days Discharge Arrangement Discharge Arrangement: Home with Home Health Services Arranged N Provider Name: [facility] Phone: [facility] - home infusion. Caregiver Assessment Caregiver is ready, willing and able to meet the patient's needs as recommended by the inter-professional team: Yes Name of Caregiver: [place] [facility]; [facility] infusion for home TF Transportation Arrangements Transportation Arrangements: Car Date of Trip: 05/22/23 Destination: home residence Handoff Communication: Handoff to: Primary Care Physician Primary Care Physician Name/Phone: Jaquan Morrow, trey Twigmore Discharge Information Row Name ED to Hosp-Admission (Current) from 05/18/[address] Home Health Care Agency [facility] Home Infusion [facility] Agency [facility] Phone/ Patient medically cleared for discharge today to home, noted referrals sent to [facility] and [facility] to follow post discharge. Attempted to reach I, re: delivery of the TF, however, unable Call placed to patients Melisa, and informed that the TF was delivered last evening. [facility] updated re: the start of care today, and informed that [facility] needs a confirmed 24hr in advance notice of discharge, and may not be able to send out a nurse today, and needing to know what type of pump was sent to patients home from [facility]. Multiple follow up calls and messages to [facility] were made, to find out the pump type, and was informed that the pump is a Kangaroo Pump, and preprogrammed to 45ml/hr., [facility] updated. Patients Melisa, stated that if the nurse at [facility] could go over the TF and Meds with him, Melisa stated that he has done home TF's before, and feels confident that he will be able to figure out the pump. Nursing and medical team updated. Plan is to discharge today. Will continue to attempt to secure a SOC for today or tomorrow. Melisa to transport patient home today, nursing is aware to provide teaching to patients prior to discharge. Referrals updated with dc orders. SIGNATURE: Nadiya Love RN PATIENT NAME: Abbey Garcia DATE: May 22, 2023 TIME: 10:55 AM CONTACT #: [phone] Normal [facility] CNDSon 05-22-2023 [facility] HNO ID: [id number] Author: DEACON KAT MD Service: General Surgery Author Type: Physician Type: Discharge Summary Filed: 06/01/2023 11:55 Note Text: DISCHARGE SUMMARY PATIENT NAME: Abbey Garcia ADMISSION DATE: 05/18/2023 DISCHARGE DATE: 05/22/2023 Attending: Deacon Kat MD Reason for Hospitalization: Principal Problem: Pain, abdominal (POA: Yes) Active Problems: Nausea (POA: Yes) Malnutrition of mild degree (HCC) (POA: Yes) Resolved Problems: * No resolved hospital problems. * Operations During Hospitalization: None Procedures During Hospitalization: EGD Hospital Course: The patient was admitted to the hospital with a intractable nausea and vomiting The patient was transferred to the endoscopy suite and a EGD with corpak placement was performed. Patient tolerated the procedure well and was transferred back to the regular nursing floor. During the post procedural course, no complications were encountered. After tolerating tube feeds, patient was discharged in a stable condition. Patient has been instructed to come back on Wednesday for PEG tube placement. A referral to neurology has also been arranged for possible POTS syndrome vs meniere's disease. Labs and Procedures Pending at Discharge: No pending results. Patient Condition at Discharge: Stable Discharge Disposition: Home with Self Care Discharge Physical Exam: VITAL SIGNS: BP 112/73 Pulse 71 Temp 36.8 ?C (98.2 ?F) (Oral) Resp 16 Ht 167.6 cm (5' 6 ) Wt 78.4 kg (172 lb 14.4 oz) LMP 08/19/2020 SpO2 100% BMI 27.91 kg/m? GENERAL: Alert, no distress, cooperative, corpak in place LUNGS: Lungs clear to auscultation, Good diaphragmatic excursion CARDIAC: Normal S1 and S2; no rubs, murmurs, or gallops ABDOMEN: Abdomen soft, non-tender, BS normal, No masses or organomegaly EXTREMITIES: Extremities normal, no deformities, edema, clubbing or skin discoloration. Good capillary refill. Information Provided to Patient: Patient given copy of Discharge Instructions Discharge Medications: Medication List START taking these medications methocarbamol 500 mg tablet Commonly known as: ROBAXIN Take 1 tablet by mouth three times a day for 7 days. NUTREN 1.5 0.07 gram-1.5 kcal/mL Liqd Generic drug: nutritional supplements 45 mL/hr by FEEDING TUBE route continuous. ondansetron 4 mg tablet Commonly known as: ZOFRAN Take 1 tablet by mouth every 8 hours as needed for nausea/vomiting. prochlorperazine 10 mg tablet Commonly known as: COMPAZINE Take 1 tablet by mouth every 6 hours for 14 days. scopolamine 1 mg over 3 days Commonly known as: TRANSDERM-SCOP Apply 1 Patch as directed every 72 hours for 12 days. Start taking on: May 24, 2023 CONTINUE taking these medications acetaminophen 500 mg tablet Commonly known as: TYLENOL Take 2 tablets by mouth every 6 hours as needed for pain or fever (specify). albuterol HFA 90 mcg/actuation inhaler Commonly known as: PROVENTIL HFA, VENTOLIN HFA docusate sodium 100 mg capsule Commonly known as: COLACE Take 1 capsule by mouth three times daily. decrease the dose or stop for diarrhea escitalopram oxalate 20 mg tablet Commonly known as: LEXAPRO take 1 tablet daily fluticasone-salmete rol 100-50 mcg/dose inhaler Commonly known as: ADVAIR DISKUS levothyroxine 100 mcg tablet Commonly known as: SYNTHROID Take 1 tablet by mouth once daily. linaCLOtide 290 mcg capsule Commonly known as: LINZESS Take 1 capsule by mouth daily at 6 am. liothyronine 5 mcg tablet Commonly known as: CYTOMEL metoclopramide HCl 5 mg tablet Commonly known as: REGLAN mirtazapine 15 mg tablet Commonly known as: REMERON Take 1 tablet by mouth daily at bedtime. pantoprazole 40 mg Grps Commonly known as: PROTONIX polyethylene glycol 3350 17 gram/dose powder Commonly known as: MIRALAX Take 17 g by mouth twice daily. reduced the dose or stop if you get diarrhea and restart after 48 hours to maintain 'at least' once a day bowel movement. Dissolve dose in 4 - 8 ounces of liquid and take as directed. topiramate 100 mg tablet Commonly known as: TOPAMAX STOP taking these medications promethazine 25 mg tablet Commonly known as: PHENERGAN Where to Get Your Medications These medications were sent to [facility] [address] [place] [address] Hours: Wednesday-Wednesday: 7am-7pm, Sat: 9am-1pm methocarbamol 500 mg tablet ondansetron 4 mg tablet prochlorperazine 10 mg tablet scopolamine 1 mg over 3 days You can get these medications from any pharmacy Bring a paper prescription for each of these medications NUTREN 1.5 0.07 gram-1.5 kcal/mL Liqd Future Appointments Date Time Provider Department Center 06/03/2023 11:00 AM Rylee Thacker APRN.APPLICATION SECURITY ARCHITECT [facility] S Bldg 07/20/2023 1:30 PM Lab, Nurse Gi I GASTMN Mn A dg 07/20/2023 1:30 PM Meka Fischer MD GAPRA3 Mn A [facility] 07/22/2023 8:00 AM Lab, Nurse G (more content not included)... Normal [facility] Magnesium SerPl-mCncon 05-21 Magnesium [Mass/Vol] 1.9 mg/dL Normal 1.7-2.3 [facility] Comment on above: Order Comment: Speci men Type: BLOOD SPECIMEN Ordering Facility: [facility] Address: [address] [place] [address] Performed By: #### 5 8410-2 #### [facility] CLIA [id number] [address] [place] [address] [place] NUTRITIONon 05-22-2023 NUTRITION HNO ID: [id number] Author: MICHAEL FRANKLIN RD Service: NST-Nutrition Support Team Author Type: Registered Dietitian Type: Nutrition Filed: 05/22/2023 13:35 Note Text: NUTRITION THERAPY PROGRESS NOTE SERVICE DATE: 05/22/2023 SERVICE TIME: 1:31 PM Nutrition Assessment: Recommended Malnutrition Diagnosis: Mild Protein-Calorie Malnutrition (05/19/23 1528 : Michael Franklin, DADA) Estimated kilocalorie needs: 9770-4186 Calorie Calculation Method: 20-25 kcals/kg Estimated protein needs (grams): 78-94 Grams protein determined by: 1.0 - 1.2 g/kg Care Plan: Follow for diet advancement to goal Vitamins and Minerals: Multivitamin with minerals;Thiamine Medications: Pro-motility agents;Anti-emetics ;Appetite stimulants Enteral Nutrition Tube Feeding Formula Type: Nutren 1.5 Goal Rate (mL/hr x hours): 45 ml hr x 24 hr = 1080 ml = 1620 kcal and 73 gm protein Water Flush Volume (mL x frequency: 100 ml q 4 Recommended Enteral Access: Small Bore;Nasal;Jejunal TF teaching per nursing and home care Monitor and Evaluation: Meet greater than 75% of estimated needs, Monitor labs, I/Os, vital signs, weight, Monitor fluid/electrolyte balance, Monitor bowel function, Monitor tolerance to tube feeding Anthropometrics: Height: 167.6 cm (5' 6 ) Weight: 78.4 kg (172 lb 14.4 oz) Dosing Weight: 77.1 kg (170 lb) Body mass index is 27.91 kg/m?. Intake History: Current Nutrition Intake: Greater than 75% estimated energy needs Average intake over: (TF tolerated at goal 45 ml hr - Pt to go home today with TF and clears/fulls as tolerated per MD) Diet Orders (From admission, onward) Start Ordered 05/21/23 0730 DIET TUBE FEED - CONTIN (NO TRAY) START NOW Question Answer Comment TF Product (26 years and up) NUTREN 1.5 [place] Approved Secondary TF Product (Do Not Change) Osmolite 1.5 TF Total mL per 24 hours 1080 Number of Liter Bags 1 TF Goal Rate (mL/hr) 45 TF Route NASOJEJUNAL TF Initial Rate (mL/hr) 15 TF Advance by (mL/hr) 10 TF Advance every (hrs) 6 TF Water Flush Amount (mL) 100 TF Water Flush Frequency Every 4 Hours NPO Restrictions EXCEPT ICE CHIPS NPO Restrictions EXCEPT MEDS NPO Restrictions EXCEPT SIPS OF CLEARS 05/21/23 0729 MNT Billing: $ Routine Care : 1-15 minutes SIGNATURE: Michael Franklin RD PATIENT NAME: Abbey Garcia DATE: May 22, 2023 TIME: 1:31 PM Normal [facility] Phosphate SerPl-mCncon 05-21 Phosphate [Mass/Vol] 4.3 mg/dL Normal 2.7-4.8 [facility] Comment on above: Order Comment: Speci men Type: BLOOD SPECIMEN Ordering Facility: [facility] Address: [address] [place] [address] Performed By: #### 5 8410-2 #### [facility] CLIA [id number] [address] [place] [address] [place] Basic metabolic 2000 panelon 05-21-2023 Anion gap [Moles/Vol] 12 mmol/L Normal 9-18 [facility] Comment on above: Order Comment: Speci men Type: BLOOD SPECIMEN Ordering Facility: [facility] Address: [address] [place] [address] Performed By: #### 2 4321-2 #### [facility] CLIA [id number] [address] [place] [address] [place] Calcium [Mass/Vol] 8.8 mg/dL Normal 8.5-10.2 [facility] Comment on above: Order Comment: Speci men Type: BLOOD SPECIMEN Ordering Facility: [facility] Address: [address] [place] [address] Performed By: #### 2 4321-2 #### [facility] CLIA [id number] [address] [place] [address] [place] Chloride [Moles/Vol] 107 mmol/L High 97-105 [facility] Comment on above: Order Comment: Speci men Type: BLOOD SPECIMEN Ordering Facility: [facility] Address: [address] [place] [address] Performed By: #### 2 4321-2 #### [facility] CLIA [id number] [address] [place] [address] [place] CO2 [Moles/Vol] 19 mmol/L Low 22-30 [facility] Comment on above: Order Comment: Geraldo marrero Type: BLOOD SPECIMEN Ordering Facility: [facility] Address: [address] [place] [place] [address] Performed By: #### 2 4321-2 #### [facility] CLIA [id number] [place] [address] STATES OF [facility] Creatinine [Mass/Vol] 0.72 mg/dL Normal 0.58-0.96 [facility] Comment on above: Order Comment: Geraldo elida Type: BLOOD SPECIMEN Ordering Facility: [facility] Address: [address] [address] Performed By: #### 2 4321-2 #### [facility] CLIA [id number] [address] [place] [address] Creatinine and Glomerular filtration rate.predicted panel (S/P/Bld) 113 mL/min/1.73m??? Normal >=60 [facility] Comment on above: Order Comment: Geraldo marrero Type: BLOOD SPECIMEN Ordering Facility: [facility] Address: [address] [address] Result Comment: Jessica mated Glomerular Filtration Rate (eGFR) is calculated [...] actual GFR. Performed By: #### 2 4321-2 #### [facility] CLIA [id number] [address] [place] [address] [place] Glucose [Mass/Vol] 85 mg/dL Normal 74-99 [facility] Comment on above: Order Comment: Geraldo elida Type: BLOOD SPECIMEN Ordering Facility: [facility] Address: [address] [address] Result Comment: The [place] Diabetes [employer] (ADA) provides guidance for cutoff [...] Standards of Medical Care in Diabetes 2016, [place] [employer]. Diabetes Care. 2016.39(Suppl 1). Performed By: #### 2 4321-2 #### [facility] CLIA [id number] [address] [place] [address] [place] Potassium [Moles/Vol] 3.8 mmol/L Normal 3.7-5.1 [facility] Comment on above: Order Comment: Speci elida Type: BLOOD SPECIMEN Ordering Facility: [facility] Address: [address] [place] [address] Performed By: #### 2 4321-2 #### [facility] CLIA [id number] [address] [place] [address] [place] Sodium [Moles/Vol] 138 mmol/L Normal 136-144 [facility] Comment on above: Order Comment: Speci men Type: BLOOD SPECIMEN Ordering Facility: [facility] Address: [address] [place] [address] Performed By: #### 2 4321-2 #### [facility] CLIA [id number] [address] [place] [address] [place] Urea nitrogen [Mass/Vol] 5 mg/dL Low 7-21 [facility] Comment on above: Order Comment: Speci men Type: BLOOD SPECIMEN Ordering Facility[facility] Address: [address] [place] [address] Performed By: #### 2 4321-2 #### [facility] CLIA [id number] [address] [place] [address] [place] Magnesium SerPl-mCncon 05-20 Magnesium [Mass/Vol] 1.9 mg/dL Normal 1.7-2.3 [facility] Comment on above: Order Comment: Speci men Type: BLOOD SPECIMEN Ordering Facility: [facility] Address: [address] [id number] Performed By: #### 2 4321-2 #### [facility] IA [id number] [address] [place], [place] [address] [facility] [place] NURSING PROGon 05-21-2023 NURSING PROG HNO ID: [id number] Author: ASHU PAIGE RN Service: ? Author Type: Registered Nurse Type: Nursing Progress Note Filed: 05/21/2023 01:09 Note Text: Nursing Note: 2332 (late entry): Text page sent to [facility] to make aware pt's TF has been turned off for several hours d/t nausea. Pt remains nauseous. Order placed for ok to continue holding TF overnight. Normal [facility] Phosphate SerPl-mCncon 05-20 Phosphate [Mass/Vol] 4.1 mg/dL Normal 2.7-4.8 [facility] Comment on above: Order Comment: Speci men Type: BLOOD SPECIMEN Ordering Facility: [facility] Address: [address] [phone] Performed By: #### 2 4321-2 #### [facility] IA [id number] [address] [place] [address] OF [place] ALLIED HEALTHon 05-20-2023 ALLIED HEALTH HNO ID: [id number] Author: MELISSA HERBERT RT(R) Service: Radiology Author Type: Technologist Type: Allied Health Filed: 05/20/2023 10:22 Note Text: Radiology Service Progress Note PATIENT NAME: Abbey Garcia DATE OF SERVICE: May 20, 2023 TIME: 10:16 AM PATIENT IDENTITY VERIFICATION COMPLETED USING TWO (2) IDENTIFIERS: Name and Date of confirmed by patient verbally and Name and Date of confirmed by identification band. FALL SCREENING: Has the patient had 2 falls in the last year or 1 fall with injury or currently using an Ambulatory Assistive Device (Walker, Cane, Wheelchair, Crutches, etc.)? Inpatient: Screened on floor PATIENT GENDER DATA: Female. status: : No status: NO. PATIENT RELEVANT IMPLANT DATA REVIEWED: Not Applicable PATIENT PRESENTS WITH AN IMPLANTABLE OR ATTACHED THERAPY ASSISTANT: No RADIOLOGY DEPARTMENT: General X-ray: Exam(s) Completed: GI/ Procedure(s): Esophogram with water soluable contrast PERIPHERAL IV DATA: Not applicable SIGNED BY: RT Jass(R) May 20, 2023 10:16 AM [facility] ANES POSTPROC EVALon 024 ANES POSTPROC EVAL HNO ID: [id number] Author: DAVID BONNER MD Service: Anesthesiology Author Type: Anesthesiologist Type: Anesthesia Postprocedure Evaluation Filed: 05/20/2023 08:19 Note Text: POST ANESTHESIA EVALUATION NOTE : 1990 Procedure Summary Date: 05/20/23 Room / Location: [facility] Endoscopy - ENDO Anesthesia Start: 738 Anesthesia Stop: 808 Procedure: EGD - THERAPEUTIC, EUS, OR TUBE INTERVENTIONS Diagnosis: (Nausea with vomiting) Scheduled Providers: Deacon Kat MD; David Bonner MD; Tiffanie Cates APRN.DIRECTOR OF ACCOUNTING Responsible Provider: David Bonner MD Anesthesia Type: MAC ASA Status: 2 Anesthesia Type: MAC Last Vitals Vitals Value Taken Time BP 116/58 05/20/23 0815 Temp 36.5 ?C (97.7 ?F) 05/20/23 0810 Pulse 87 05/20/23 0818 Resp 21 05/20/23 0818 SpO2 100 % 05/20/23 0810 Vitals shown include unfiled device data. Post Anesthesia Patient Status Patient [...] of care. Anesthesia Observations No Documentation SIGNATURE: David Bonner MD PATIENT NAME: Abbey Garcia DATE: May 20, 2023 TIME: 8:19 AM CSN: [id number] [facility] ANES PRE-OPon 05-20-2023 ANES PRE-OP HNO ID: [id number] Author: DAVID BONNER MD Service: Anesthesiology Author Type: Anesthesiologist Type: Anesthesia Preprocedure Evaluation Filed: 05/20/2023 07:06 Note Text: ANESTHESIOLOGY DAY OF SURGERY NOTE : 1990 Procedure Information Date/Time: 05/20/23 0730 Scheduled providers: Deacon Kat MD; David Bonner MD; Tiffanie Cates APRN.DIRECTOR OF ACCOUNTING Procedure: EGD - THERAPEUTIC, EUS, OR TUBE INTERVENTIONS Location: [facility] Endoscopy - ENDO Estimated body mass index is 27.91 kg/m? as calculated from the following: Height as of this encounter: 167.6 cm (5' 6 ). Weight as of this encounter: 78.4 kg (172 lb 14.4 oz). Most recent hematocrit and potassium results: Hematocrit 33.3 05/19/2023 Hematocrit (POCT) 36 02/03/2020 Potassium 4.1 05/19/2023 Potassium (POCT) 3.6 02/03/2020 Relevant Problems ANESTHESIA [...] adequate. Short neck: no. Thick neck: no Microretrognathia/M icronagthia/Recesse d Chin: Yes DENTAL Dental findings: teeth intact. Additional exam findings: yes. CARDIOVASCULAR Rhythm: regular Rate: normal PULMONARY Breath sounds clear to auscultation. II - ANESTHESIA PLAN ASA Score: 2 Anesthetic Plan: MAC The patient is not a current smoker. NPO Status: adequate Beta Blanka Monitoring Plan Monitoring plan: standard ASA. Post Procedure Analgesic Plan Postoperative analgesic plan: multimodal analgesia. Informed Consent Anesthetic risks, benefits, alternatives, personnel and consent discussed: yes. Patient / Responsible Libertarian agrees to proceed: yes Patient / Surrogate agrees to blood products: Yes Significant changes in the patient condition since the History and Physical, not otherwise documented in primary service progress note: no. Potential Anesthesia issues that may suggest increased risk of complications or contraindication to planned procedure: none. Vitals Value Taken Time BP 103/71 05/20/23 0700 Pulse Resp 15 05/20/23699 Temp 36.3 ?C (97.3 ?F) 05/20/23 07 SpO2 100 % 05/20/23699 Facility-Administer ed Medications as of 05/20/2023 Medication Dose Route Frequency - lactated ringers iv infusion 75 mL/hr INTRAVENOUS CONTINUOUS - [COMPLETED] NaCl 0.9% 1,000 mL iv bolus 1,000 mL INTRAVENOUS ONCE - [COMPLETED] ondansetron (PF) 4 mg injection (ZOFRAN) 4 mg INTRAVENOUS ONCE - [COMPLETED] morphine 4 mg injection 4 mg INTRAVENOUS ONCE - [COMPLETED] metoclopramide HCl 5 mg injection (REGLAN) 5 mg INTRAVENOUS ONCE - [COMPLETED] diphenhydrAMINE 25 mg injection (BENADRYL) 25 mg INTRAVENOUS ONCE - liothyronine 5 mcg tab(s) (CYTOMEL) 5 mcg ORAL DAILY - topiramate 100 mg tab(s) (TOPAMAX) 100 mg ORAL BID - acetaminophen 1,000 mg tab(s) (TYLENOL) 1,000 mg ORAL q 6 H PRN - metoclopramide HCl 5 mg (REGLAN) 5 mg ORAL AC and HS - albuterol HFA 90 mcg/actuation 2 Puff (PROVENTIL HFA, VENTOLIN HFA) 2 Puff INHALATION q 4 H PRN - escitalopram oxalate 20 mg tab(s) (LEXAPRO) 20 mg ORAL DAILY - heparin 5,000 Units injection 5,000 Units SUBCUTANEOUS q 12 H - NaCl 0.9% iv flush bag 20 mL INTRAVENOUS PRN - pantoprazole 40 mg injection (PROTONIX) 40 mg INTRAVENOUS DAILY (6 AM) - adult multivitamin 10 mL, folic acid 1 mg in NaCl 0.9% 1,000 mL INTRAVENOUS q 24 HR - magnesium sulfate iv piggyback in sterile water 2 g 50 mL 2 g INTRAVENOUS q 24 HR - thiamine 100 mg tab(s) (VITAMIN B1) 100 mg ORAL TID - ondansetron (PF) 4 mg injection (ZOFRAN) 4 mg INTRAVENOUS q 6 H PRN - prochlorperazine 5 mg injection (COMPAZINE) 5 mg INTRAVENOUS q 6 H PRN - scopolamine 1 mg over 3 days 1 Patch (TRANSDERM-SCOP) 1 Patch TRANSDERMAL q 72 HR And - [START ON 05/21/2023] scopolamine - REMOVE PATCH OTHER q 72 HR And - scopolamine - VERIFY patch OTHER q 8 H - HYDROmorphone 0.2 mg injection (DILAUDID) 0.2 mg INTRAVENOUS q 4 H PRN - mometasone-formoter ol 100-5 mcg/actuation 2 Puff inhaler (DULERA) 2 Puff INHALATION BID - levothyroxine (SYNTHROID) tab(s) 75 mcg 75 mcg ORAL BEFORE BREAKFAST DAILY - mirtazapine 15 mg (REMERON) 15 mg ORAL AT BEDTIME Outpatient Medications as of 05/20/2023 Medication Sig - linaCLOtide (LINZESS) 290 mcg capsule Take 1 capsule by mouth daily at 6 am. - escitalopram oxalate (LEXAPRO) 20 mg tablet take 1 tablet daily - pantoprazole (PROTONIX) 40 mg grps Take 40 mg by mouth daily before breakfast. - metoclopramide HCl (REGLAN) 5 mg tablet Take (more content not included)... Normal [facility] Bacteria Ur Culton Bacteria identified Cx Nom (U) ORGANISM ID: 1 10,000 -<50,000 CFU/ml Normal urogenital annika Normal [facility] Comment on above: Performed By: #### 6 30-4 ####[facility] [id number] [facility] [id number] [address] [place] Basic metabolic 2000 panelon 05-20-2023 Anion gap [Moles/Vol] 12 mmol/L Normal 9-18 [facility] Comment on above: Order Comment: Speci men Type: BLOOD SPECIMEN Ordering Facility: [facility] Address: [address] [place] [address] Performed By: #### H CG #### [facility] CLIA [id number] [address] [place] [address] [place] Calcium [Mass/Vol] 8.8 mg/dL Normal 8.5-10.2 [facility] Comment on above: Order Comment: Speci men Type: BLOOD SPECIMEN Ordering Facility: [facility] Address: [address] [place] [address] Performed By: #### H CG #### [facility] CLIA [id number] [address] [place] [address] [place] Chloride [Moles/Vol] 109 mmol/L High 97-105 [facility] Comment on above: Order Comment: Speci men Type: BLOOD SPECIMEN Ordering Facility: [facility] Address: [address] [place] [address] Performed By: #### H CG #### [facility] CLIA [id number] [address] [place] [address] [place] CO2 [Moles/Vol] 21 mmol/L Low 22-30 [facility] Comment on above: Order Comment: Speci men Type: BLOOD SPECIMEN Ordering Facility: [facility] Address: [address] [place] [address] Performed By: #### H CG #### [facility] CLIA [id number] [address] [place] [address] [place] Creatinine [Mass/Vol] 0.75 mg/dL Normal 0.58-0.96 [facility] Comment on above: Order Comment: Speci men Type: BLOOD SPECIMEN Ordering Facility: [facility] Address: [address] [place] [address] Performed By: #### H CG #### [facility] CLIA [id number] [address] [place] [address] [place] Creatinine and Glomerular filtration rate.predicted panel (S/P/Bld) 107 mL/min/1.73m??? Normal >=60 [facility] Comment on above: Order Comment: Speci men Type: BLOOD SPECIMEN Ordering Facility: [facility] Address: [address] [place] [address] Result Comment: Jessica mated Glomerular Filtration Rate (eGFR) is calculated using the 2020 CKD-EPI creatinine equation. This equation utilizes serum creatinine, sex, and age as parameters. The creatinine assay has traceable calibration to isotope dilution-mass spectrometry. Refer to KDIGO guidelines for clinical interpretation. In patients with unstable renal function, e.g. those with acute kidney injury, the eGFR may not accurately reflect actual GFR. Performed By: #### H CG #### [facility] CLIA [id number] [address] [place] [address] [place] Glucose [Mass/Vol] 91 mg/dL Normal 74-99 [facility] Comment on above: Order Comment: Geraldo marrero Type: BLOOD SPECIMEN Ordering Facility[facility] Address: [address] [place] [address] Result Comment: The [place] Diabetes Association (ADA) provides guidance for cutoff [...] Standards of Medical Care in Diabetes 2016, [place] [employer]. Diabetes Care. 2016.39(Suppl 1). Performed By: #### H CG #### [facility] CLIA [id number] [address] [place] [address] [place] Potassium [Moles/Vol] 4.1 mmol/L Normal 3.7-5.1 [facility] Comment on above: Order Comment: Geraldo marrero Type: BLOOD SPECIMEN Ordering Facility[facility] Address: [address] [place] [address] Performed By: #### H CG #### [facility] CLIA [id number] [address] [place] [address] [place] Sodium [Moles/Vol] 142 mmol/L Normal 136-144 [facility] Comment on above: Order Comment: Geraldo marrero Type: BLOOD SPECIMEN Ordering Facility[facility] Address: [address] [place] [address] Performed By: #### H CG #### [facility] CLIA [id number] [address] [place] [address] [place] Urea nitrogen [Mass/Vol] 6 mg/dL Low 7-21 [facility] Comment on above: Order Comment: Speci men Type: BLOOD SPECIMEN Ordering Facility[facility] Address: [address] [place] [address] Performed By: #### H CG #### [facility] CLIA [id number] [address] [place] [address] [place] CBC panel Auto (Bld)on 05-19 Erythrocyte distribution width (RBC) [Ratio] 12.9 % Normal 11.5-15.0 [facility] Comment on above: Order Comment: Speci men Type: BLOOD SPECIMEN Ordering Facility: [facility] Address: [address] [place] [address] Performed By: #### H CG #### [facility] CLIA [id number] [address] [place] [address] [place] Hematocrit (Bld) [Volume fraction] 36.0 % Normal 36.0-46.0 [facility] Comment on above: Order Comment: Speci men Type: BLOOD SPECIMEN Ordering Facility[facility] Address: [address] [place] [address] Performed By: #### H CG #### [facility] CLIA [id number] [address] [place] [address] [place] Hemoglobin (Bld) [Mass/Vol] 12.4 g/dL Normal 11.5-15.5 [facility] Comment on above: Order Comment: Speci men Type: BLOOD SPECIMEN Ordering Facility[facility] Address: [address] [place] [address] Performed By: #### H CG #### [facility] CLIA [id number] [address] [place] [address] [place] MCH (RBC) [Entitic mass] 30.8 pg Normal 26.0-34.0 [facility] Comment on above: Order Comment: Speci men Type: BLOOD SPECIMEN Ordering Facility[facility] Address: [address] [place] [address] Performed By: #### H CG #### [facility] CLIA [id number] [address] [place] [address] [place] MCHC (RBC) [Mass/Vol] 34.4 g/dL Normal 30.5-36.0 [facility] Comment on above: Order Comment: Speci men Type: BLOOD SPECIMEN Ordering Facility[facility] Address: [address] [place] [address] Performed By: #### H CG #### [facility] CLIA [id number] [place] [address] [place] MCV (RBC) [Entitic vol] 89.6 fL Normal 80.0-100.0 [facility] Comment on above: Order Comment: Speci men Type: BLOOD SPECIMEN Ordering Facility[facility] Address: [address] [place] [address] Performed By: #### H CG #### [facility] CLIA [id number] [address] [place] [address] [place] Nucleated RBC (Bld) [#/Vol] 10*3/uL Normal <0.01 [facility] Comment on above: Order Comment: Speci men Type: BLOOD SPECIMEN Ordering Facility[facility] Address: [address] [place] [address] Performed By: #### H CG #### [facility] CLIA [id number] [address] [place] [address] [place] Platelet mean volume (Bld) [Entitic vol] 11.4 fL Normal 9.0-12.7 [facility] Comment on above: Order Comment: Speci men Type: BLOOD SPECIMEN Ordering Facility[facility] Address: [address] [place] [address] Performed By: #### H CG #### [facility] CLIA [id number] [address] [place] [address] [place] Platelets (Bld) [#/Vol] 176 10*3/uL Normal 150-400 [facility] Comment on above: Order Comment: Speci men Type: BLOOD SPECIMEN Order[facility] Facility[facility] Address: [address] [place] [address] Performed By: #### H CG #### [facility] CLIA [id number] [address] [place] [address] [place] RBC (Bld) [#/Vol] 4.02 10*6/uL Normal 3.90-5.20 [facility] Comment on above: Order Comment: Speci men Type: BLOOD SPECIMEN Order[facility] Facility[facility] Address: [address] [place] [address] Performed By: #### H CG #### [facility] CLIA [id number] [address] [place] [address] [place] WBC (Bld) [#/Vol] 2.51 10*3/uL Low 3.70-11.00 [facility] Comment on above: Order Comment: Speci men Type: BLOOD SPECIMEN Order[facility] Facility[facility] Address: [address] [place] [address] Performed By: #### H CG #### [facility] CLIA [id number] [address] [place] [address] HISTORY PHYSICALon HISTORY PHYSICAL HNO ID: [id number] Author: DEACON KAT MD Service: General Surgery Author Type: Physician Type: H&P Filed: 05/20/2023 21:04 Note Text: UPDATED HISTORY AND PHYSICAL EXAMINATION SERVICE DATE: 05/20/2023 SERVICE TIME: 7:00 AM PHYSICAL EXAM MUST BE COMPLETED ON ADMISSION The History and Physical (completed in the past 30 days) has been reviewed and the patient has been examined. The contents accurately reflect the patient's condition with the following additions or revisions since the HANDP was completed. Examination indicates no changes. Physical exam: Gen: Alert, awake, oriented. NAD. Resp: Clear breath sounds on auscultation bilaterally. Breathing non labored on RA. Card: Audible heart sounds S1 S2 Abd: Soft, appropriately tender. Non distended This HANDP can be found in the Electronic Medical Record dated 05/18/2023. SIGNATURE: Tramaine Solano MD PATIENT NAME: Abbey Garcia DATE: May 20, 2023 TIME: 6:59 AM I saw and evaluated the patient. Discussed with the resident and agree with resident's findings and plan as documented in the resident's note. Corpac in place. Esophagram shows no hiatal hernia. Slight angulation of pouch may be due to post op adhessions. No clear reason for nausea. If corpac feeds are tolerated, will convert to PEJ. Deacon Kat MD [facility] Magnesium SerPl-mCncon 05-19 Magnesium [Mass/Vol] 1.9 mg/dL Normal 1.7-2.3 [facility] Comment on above: Order Comment: Speci men Type: BLOOD SPECIMEN Ordering [facility] Address: [address] [place] [address] Performed By: #### H CG #### [facility] CLIA [id number] [address] [place] [address] OF [facility] NURSING PROGon 05-20-2023 NURSING PROG HNO ID: [id number] Author: URBANO GUY RN Service: Nursing Author Type: Registered Nurse Type: Nursing Progress Note Filed: 05/20/2023 17:42 Note Text: Daily Note: 1735: pt c/o of nausea. Medicated per APR. Paged primary to make aware. Per primary team hold tube feed. [facility] NURSING PROG HNO ID: [id number] Author: KYUNG PEREZ RN Service: Nursing Author Type: Registered Nurse Type: Nursing Progress Note Filed: 05/20/2023 08:13 Note Text: PATIENT EDUCATION TOPIC: PROCEDURE / SURGERY: Procedure/Surgery: egd with corpak PATIENT NAME: Abbey Garcia PATIENT LOCATION: [facility] POOL/[facility] END[facility] POOL READINESS TO LEARN COGNITIVE ABILITY: Alert and oriented MOTIVATION TO LEARN: Interested FAMILY SUPPORT: None - Unavailable/disinte rested INSTRUCTION PROVIDED TO: Patient PATIENT LEARNS BEST BY: Individual Instruction FACTORS AFFECTING LEARNING: None PHYSICAL LIMITATIONS AFFECTING LEARNING: None LEARNING RESPONSE DIAGNOSIS: ADULT: PHH, corpak placed PATIENT/FAMILY RESPONSE: Verbalizes understanding of: POST-PROCEDURE INSTRUCTIONS-Correc t actions to take to reduce post procedure complications METHOD OF INSTRUCTION: Individual instruction FOLLOW-UP PLAN: Complete - No need for follow-up INSTRUCTIONAL AIDS USED: NA SUPPLEMENTAL MATERIAL PROVIDED TO PATIENT: None REFERRAL (RECOMMENDATION): None Electronically Signed By: [facility]: [id number] Author: CECY RUEDA, RN Service: Nursing Author Type: Registered Nurse Type: Nursing Progress Note Filed: 05/20/2023 07:03 Note Text: PATIENT EDUCATION TOPIC: PROCEDURE / SURGERY: Pre Procedure Teaching: egd corpac PATIENT NAME: Abbey Garcia PATIENT LOCATION: [facility] READINESS TO LEARN COGNITIVE ABILITY: Alert and oriented MOTIVATION TO LEARN: Interested FAMILY SUPPORT: Unable to assess - Family not present INSTRUCTION PROVIDED TO: Patient PATIENT LEARNS BEST BY: Verbal Instruction FACTORS AFFECTING LEARNING: None PHYSICAL LIMITATIONS AFFECTING LEARNING: None LEARNING RESPONSE DIAGNOSIS: ADULT: EGD PATIENT/FAMILY RESPONSE: Verbalizes understanding of: PRE-PROCEDURE INSTRUCTIONS-Correc t action to take to follow pre-procedure instructions METHOD OF INSTRUCTION: Verbal instruction FOLLOW-UP PLAN: TBD INSTRUCTIONAL AIDS USED: NA SUPPLEMENTAL MATERIAL PROVIDED TO PATIENT: None REFERRAL (RECOMMENDATION): TBD Electronically Signed By: Cecy Rueda [facility] NUTRITIONon 05-20-2023 NUTRITION HNO ID: [id number] Author: RAAD JC RD Service: Nutrition Therapy Author Type: Registered Dietitian Type: Nutrition Filed: 05/20/2023 11:10 Note Text: NUTRITION BRIEF NOTE SERVICE DATE: 05/20/2023 Care Plan: Follow for diet advancement to goal Supplements: Ensure Max (when able) Vitamins and Minerals: Multivitamin with minerals;Thiamine Plan for trickle TF today (10 mL/hr) with goal TF recommendations listed below. Enteral Nutrition Tube Feeding Formula Type: Nutren 1.5 Goal Rate (mL/hr x hours): 45 ml hr x 24 hr = 1080 ml = 1620 kcal and 73 gm protein Water Flush Volume (mL x frequency: 100 ml q 4 Recommended Enteral Access: Small Bore;Nasal;Jejunal Orders written and provider collaborated with: Tramaine Solano MD Monitor and Evaluation: Meet greater than 75% of estimated needs, Monitor labs, I/Os, vital signs, weight, Monitor fluid/electrolyte balance, Monitor bowel function, Monitor tolerance to tube feeding Interval History: RD consulted for TF evaluation. TF eval completed yesterday by RD. Collaborated with MD to begin tube feeds as pt is s/p corpak placement via EGD. Tip confirmed in jejunum via esophagram. Decreased PO intakes for 1 week. Will plan for trickle TF today with potential to advance tomorrow pending tolerance as discussed with Tramaine Solano MD. MNT Billing: $ Routine Care : 1-15 minutes SIGNATURE: Raad DADA Jc DATE: 05/20/2023 TIME: 11:04 AM Normal [facility] Phosphate SerPl-mCncon 05-19 Phosphate [Mass/Vol] 3.8 mg/dL Normal 2.7-4.8 [facility] Comment on above: Order Comment: Speci men Type: BLOOD SPECIMEN Ordering Facility: [facility] Address: [address] [place] [address] Performed By: #### H CG #### [facility] CLIA [id number] OF [facility] Upper GI endoscopyon 024 Upper GI endoscopy [facility] Gastrointestinal Endoscopy Patient Name: Abbey Garcia Procedure Date: 05/20/2023 7:18 AM Date of : 1990 Admit Type: Emergency Department Age: 33 Room: [place] [address] Gender: Female Note Status: Finalized Attending MD: Deacon Kat MD, [id number] Procedure: Upper GI endoscopy Indications: Nausea with vomiting, Status post Tan-en-Y Providers: Deacon Kat MD, Roma Walter, DEE, Montrell Woods RN (Assisting Nurse) Patient Profile: This is a 33 year old female. Refer to note in patient chart for documentation of history and physical. Patient has symptoms of chronic nausea. 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 Referring Physician: Pete Nickerson (Referring MD) Medicines: Monitored Anesthesia Care Complications: [...] by the physician, the nurse and the outdoor pursuits instructor in the endoscopy suite. Mental Status Examination: alert and oriented. Airway Examination: normal oropharyngeal airway and neck mobility. Respiratory Examination: clear to auscultation. CV Examination: normal. Prophylactic Antibiotics: The patient does not require prophylactic antibiotics. Prior Anticoagulants: The patient has taken no anticoagulant or antiplatelet agents. ASA Grade Assessment: III - A patient with severe systemic disease. After reviewing the risks and [...] anesthesia was administered by the anesthesia team. MAC anesthesia was administered by the anesthesia team. Total Procedure Duration: 0 hours 12 minutes 28 seconds Findings: The examined esophagus was normal. 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 The gastrojejunal anastomosis was characterized by healthy appearing mucosa. This was traversed. The jzkct-hb-cjmodes limb was characterized by healthy appearing mucosa. The jejunojejunal anastomosis was characterized by healthy appearing mucosa. A guide wire was inserted into the jejunum and the endoscope was removed. A 12 Fr nasojejunal tube was advanced over the guide wire. The endoscope was reinserted along side the feeding tube to the location of the distal end of the tube. The feeding tube was then grasped and guided into the jejunum. The distal end of the tube was secured to the bowel wall using a clip. Placement was confirmed by scope visualization. possible hiatal hernia Impression: - Normal esophagus. - Tan-en-Y gastrojejunostomy with gastrojejunal anastomosis characterized by healthy appearing mucosa. - Feeding tube placement was successfully performed. - No specimens collected. Recommendation: - Discharge patient to home. - Clear liquid diet, start tube feeds. - Continue present medications. - Return patient to hospital [facility] for ongoing care. - Return to Bariatric clinic as previously scheduled. Procedure Code(s): --- Professional --- 51756, Esophagogastroduode noscopy, flexible, transoral; with insertion of intraluminal tube or catheter Diagnosis Code(s): --- Professional --- Z98.0, Intestinal bypass and anastomosis status R11.2, Nausea with vomiting, unspecified CPT copyright 2020 [place]. All rights reserved. The codes documented in this report are preliminary and upon operations staff specialist security review may be revised to meet current compliance requirements. Attending Participation: I was present and participated during the entire procedure, including non-paula portions. Scope In: 7:48:15 AM Scope Out: 8:00:43 AM MD Deacon Castañeda MD 05/20/2023 8:11 (more content not included)... Normal [facility] XR ESOPHAGRAMon 05-20-2023 XR ESOPHAGRAM * * *Final Report* * * DATE OF EXAM: May 20 2023 10:35AM FVX 5378 - XR ESOPHAGRAM / PROCEDURE REASON: Hiatal hernia * * * * Physician Interpretation * * * * WATER-SOLUBLE CONTRAST UPPER GI SERIES: CLINICAL INFORMATION: Postsurgical changes from a Atn-en-Y gastric bypass. There is a questionable hiatal hernia on a recent endoscopy. TECHNIQUE: A water-soluble contrast upper GI was performed. Fluoroscopic Radiation Summary: Plane A, Air Kerma: 79.5 mGy Plane B, Air Kerma: 0.0 mGy Dose Area Product (DAP): Fluoro time: 4:12 min:sec RESULT: There is normal swallowing mechanism. There is no hiatal hernia or reflux identified. There are postsurgical changes from a Tan-en-Y gastric bypass procedure. The opacified small bowel appears unremarkable. The patient has a Corpak type tube with the tip in the jejunum. IMPRESSION: 1. No hiatal hernia identified. 2. Postsurgical changes from a Tan-en-Y gastric bypass procedure. Filling Station Attendant: PSCB Transcribe Date/Time: May 20 2023 10:47A Dictated by : ISABEL ALVARADO MD This examination was interpreted and the report reviewed and electronically signed by: ISABEL ALVARADO MD on May 20 2023 10:51AM EST [id number] Normal [facility] Basic metabolic 2000 panelon 05-19-2023 Anion gap [Moles/Vol] 16 mmol/L Normal 9-18 [facility] Comment on above: Order Comment: Speci men Type: BLOOD SPECIMEN [facility]ing [facility] Address: [address] [place] [address] Performed By: #### 5 8410-2 #### [facility] CLIA [id number] [address] [place] [address] [place] Calcium [Mass/Vol] 8.4 mg/dL Low 8.5-10.2 [facility] Comment on above: Order Comment: Speci men Type: BLOOD SPECIMEN Ordering Facility: [facility] Address: [address] [place] [address] Performed By: #### 5 8410-2 #### [facility] CLIA [id number] [address] [place] [address] [place] Chloride [Moles/Vol] 104 mmol/L Normal 97-105 [facility] Comment on above: Order Comment: Speci men Type: BLOOD SPECIMEN [facility]ing Facility[facility] Address: [address] [place] [address] Performed By: #### 5 8410-2 #### [facility] CLIA [id number] [address] [place] [address] [place] CO2 [Moles/Vol] 15 mmol/L Low 22-30 [facility] Comment on above: Order Comment: Speci men Type: BLOOD SPECIMEN [facility]ing [facility] Address: [address] [place] [address] Performed By: #### 5 8410-2 #### [facility] CLIA [id number] [address] [place] [address] [place] Creatinine [Mass/Vol] 0.71 mg/dL Normal 0.58-0.96 [facility] Comment on above: Order Comment: Speci men Type: BLOOD SPECIMEN Ordering [facility] Address: [address] [place] [address] Performed By: #### 5 8410-2 #### [facility] CLIA [id number] [address] [place] [address] [place] Creatinine and Glomerular filtration rate.predicted panel (S/P/Bld) 115 mL/min/1.73m??? Normal >=60 [facility] Comment on above: Order Comment: Geraldo marrero Type: BLOOD SPECIMEN Ordering [facility] Address: [address] [place] [address] Result Comment: Jessica mated Glomerular Filtration Rate (eGFR) is calculated using the 2020 CKD-EPI creatinine equation. This equation utilizes serum creatinine, sex, and age as parameters. The creatinine assay has traceable calibration to isotope dilution-mass spectrometry. Refer to KDIGO guidelines for clinical interpretation. In patients with unstable renal function, e.g. those with acute kidney injury, the eGFR may not accurately reflect actual GFR. Performed By: #### 5 8410-2 #### [facility] CLIA [id number] [address] [place] [address] [place] Glucose [Mass/Vol] 73 mg/dL Low 74-99 [facility] Comment on above: Order Comment: Geraldo marrero Type: BLOOD SPECIMEN [facility] Address: [address] [place] [address] Result Comment: The [place] [employer] (ADA) provides guidance for cutoff [...] Standards of Medical Care in Diabetes 2016, [place] [employer]. Diabetes Care. 2016.39(Suppl 1). Performed By: #### 5 8410-2 #### [facility] CLIA [id number] [place] [address] [place] Potassium [Moles/Vol] 4.1 mmol/L Normal 3.7-5.1 [facility] Comment on above: Order Comment: Speci men Type: BLOOD SPECIMEN [facility] Address: [address] [place] [address] Performed By: #### 5 8410-2 #### [facility] CLIA [id number] [address] [place] [address] [place] Sodium [Moles/Vol] 135 mmol/L Low 136-144 [facility] Comment on above: Order Comment: Speci men Type: BLOOD SPECIMEN [facility] Address: [address] [place] [address] Performed By: #### 5 8410-2 #### [facility] CLIA [id number] [place] [address] [place] Urea nitrogen [Mass/Vol] 8 mg/dL Normal 7-21 [facility] Comment on above: Order Comment: Speci men Type: BLOOD SPECIMEN [facility] Address: [address] [place] [address] Performed By: #### 5 8410-2 #### [facility] CLIA [id number] [address] [place] [address] [place] CBC panel Auto (Bld)on 05-18 Erythrocyte distribution width (RBC) [Ratio] 12.6 % Normal 11.5-15.0 [facility] Comment on above: Order Comment: Speci men Type: BLOOD SPECIMENOrdering Facility: [facility] Address: [address] [place] [address] Performed By: #### 5 8410-2 ####[facility] [id number] [address] [place] Hematocrit (Bld) [Volume fraction] 33.3 % Low 36.0-46.0 [facility] Comment on above: Order Comment: Speci men Type: BLOOD SPECIMENOrdering Facility: [facility] Address: [address] [place] [address] Performed By: #### 5 8410-2 ####[facility] [id number] [place] [address] [place] Hemoglobin (Bld) [Mass/Vol] 11.2 g/dL Low 11.5-15.5 [facility] Comment on above: Order Comment: Speci men Type: BLOOD SPECIMENOrdering Facility: [facility] Address: [address] [place] [address] Performed By: #### 5 8410-2 ####[facility]ORYCLIA [id number] [address] [place] MCH (RBC) [Entitic mass] 30.5 pg Normal 26.0-34.0 [facility] Comment on above: Order Comment: Speci men Type: BLOOD SPECIMENOrdering Facility: [facility] Address: [address] [place] [address] Performed By: #### 5 8410-2 ####[facility]ORYCLIA [id number] [address] [place] MCHC (RBC) [Mass/Vol] 33.6 g/dL Normal 30.5-36.0 [facility] Comment on above: Order Comment: Speci men Type: BLOOD SPECIMENOrdering Facility: [facility] Address: [address] [place] [address] Performed By: #### 5 8410-2 ####[facility]ORYCLIA [id number] [address] [place] MCV (RBC) [Entitic vol] 90.7 fL Normal 80.0-100.0 [facility] Comment on above: Order Comment: Speci men Type: BLOOD SPECIMENOrdering Facility: [facility] Address: [address] [place] [address] Performed By: #### 5 8410-2 ####[facility]ATORYCLIA [id number] [address] [place] Nucleated RBC (Bld) [#/Vol] 10*3/uL Normal <0.01 [facility] Comment on above: Order Comment: Speci men Type: BLOOD SPECIMENOrdering Facility: [facility] Address: [address] [place] [address] Performed By: #### 5 8410-2 ####[facility] [id number] [place] [address] [place] Platelet mean volume (Bld) [Entitic vol] 11.4 fL Normal 9.0-12.7 [facility] Comment on above: Order Comment: Speci men Type: BLOOD SPECIMENOrdering Facility: [facility] Address: [address] [place] [address] Performed By: #### 5 8410-2 ####[facility] [id number] [place] [address] [place] Platelets (Bld) [#/Vol] 150 10*3/uL Normal 150-400 [facility] Comment on above: Order Comment: Speci men Type: BLOOD SPECIMENOrdering Facility: [facility] Address: [address] [place] [address] Performed By: #### 5 8410-2 ####[facility] [id number] [place] [address] [place] RBC (Bld) [#/Vol] 3.67 10*6/uL Low 3.90-5.20 [facility] Comment on above: Order Comment: Speci men Type: BLOOD SPECIMENOrdering Facility: [facility] Address: [address] [place] [address] Performed By: #### 5 8410-2 ####[facility] [id number] [place] [address] [place] WBC (Bld) [#/Vol] 3.57 10*3/uL Low 3.70-11.00 [facility] Comment on above: Order Comment: Speci men Type: BLOOD SPECIMENOrdering Facility: [facility] Address: [address] [place] [address] Performed By: #### 5 8410-2 ####[facility] [id number] [place] [address] [facility] [place] NURSING PROGon 05-19-2023 NURSING PROG HNO ID: [id number] Author: NORMA OLEA RN Service: Nursing Author Type: Registered Nurse Type: Nursing Progress Note Filed: 05/20/2023 06:49 Note Text: Other: 2100- pt c/o right side back pain and burning with urination. UA sent today resulted positive for leuks.paged [facility] to make aware 0650- pt down to endo Normal [facility] NURSING PROG HNO ID: [id number] Author: KIMBERLY RANGEL, DEE Service: Nursing Author Type: Registered Nurse Type: Nursing Progress Note Filed: 05/19/2023 10:30 Note Text: Other: 1029- page to orange team- lab unsuccessful x2 for this pt today. was told we have to wait for second shift to try again. making aware [facility] NURSING PROG HNO ID: [id number] Author: ERIC LINDSAY, DEE Service: Nursing Author Type: Registered Nurse Type: Nursing Progress Note Filed: 05/19/2023 05:39 Note Text: Daily Note: 0116- pt admitted for IV rehydration and nutrition optimization, has multivitamin bag running, infusion to finish at 0400, no other maintenance fluids ordered for after, paged surgery to inquire about IVF orders. 0539- IVF orders received. [facility] NUTRITIONon 05-19-2023 NUTRITION HNO ID: [id number] Author: MICHAEL FRANKLIN RD Service: NST-Nutrition Support Team Author Type: Registered Dietitian Type: Nutrition Filed: 05/19/2023 16:07 Note Text: NUTRITION THERAPY INITIAL ASSESSMENT SERVICE DATE: 05/19/2023 SERVICE TIME: 3:57 PM Nutrition Assessment: Recommended Malnutrition Diagnosis: Mild Protein-Calorie Malnutrition In the context of: Acute Illness or Injury Based on: Insufficient Energy Intake Nutrition Diagnosis: Problem: Suboptimal oral intake Related to: Altered GI function As evidenced by: Anorexia, Patient/family self-report, Medical condition, Imaging studies, Intake records, Nausea, Vomiting, Pain, Food/nutrition related history Estimated kilocalorie needs: 1159-1684 Calorie Calculation Method: 20-25 kcals/kg Estimated protein needs (grams): 78-94 Grams protein determined by: 1.0 - 1.2 g/kg Care Plan: Follow for diet advancement to goal Supplements: Ensure Max Vitamins and Minerals: Multivitamin with minerals, Thiamine Medications: Pro-motility agents, Anti-emetics, Appetite stimulants, IV Magnesium sulfate 2 gm Enteral Nutrition Tube Feeding Formula Type: Nutren 1.5 Goal Rate (mL/hr x hours): 45 ml hr x 24 hr = 1080 ml = 1620 kcal and 73 gm protein Water Flush Volume (mL x frequency: 100 ml q 4 Recommended Enteral Access: Small Bore, Nasal, Jejunal Monitor and Evaluation: Meet greater than 75% of estimated needs, Monitor labs, I/Os, vital signs, weight, Monitor fluid/electrolyte balance, Monitor bowel function, Monitor tolerance to tube feeding HPI: per note 05/18 Adam Rendon MD 33 year old female with PMHx anemia, PONV, PCOS, GERD and chronic abdominal pain. She is presenting with chronic postprandial pain and nausea. 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 She reports onset of her chronic pain was prior to any surgeries and her pain improves transiently for various periods of time post-op but eventually returns. Now admitted 05/17 (s/p MALS surgery in February) for worsening pain for 2 weeks and inability to tolerate any PO intake. She has had extensive testing including EGD, UGIs and CTs without a clear cause of her symptoms. Pain controlled, no emesis since admission. Receiving IV hydration. Will plan for corpak placement tomorrow.05/19 Intake History: Nutrition Intake Prior to Admission: Less than 50% estimated energy needs greater than 7 days Current Nutrition Intake: NPO Current Intake Over time: (NPO x 1 day) Pt states she has not been able to tolerate food or fluids well x 2 weeks - she was trying to take protein shakes but then was not tolerating those - retching and N/V with abdominal pain after po intakes Pt states she was dehydrated and wt [employer] 169# Pt is NPO and states she is getting a Corpak 05/19 Diet Orders (From admission, onward) Start Ordered 05/18/23 1245 DIET NPO START NOW 05/18/23 1234 Anthropometrics: Height: 167.6 cm (5' 6 ) Weight: 78.4 kg (172 lb 14.4 oz) Dosing Weight: 77.1 kg (170 lb) Usual Weight: 83 kg (183 lb) Nov 2022 Usual Weight Obtained From: Chart Review Body mass index is 27.91 kg/m?. Weight change percentage over time: Wt loss 7 % over the past 3-6 months Weight Change: Not clinically signficant weight loss Physical Exam: Subcutaneous fat loss: No fat loss Muscle loss: No muscle loss Potential micronutrient deficiency: No deficiency identified Edema/Ascites: No edema GI Symptoms: Anorexia, Vomiting, Nausea, Abdominal pain Functional Status: Unable to assess Potential Signs of Inflammation: Chronic condition, Imaging studies PONV, PCOS, GERD and chronic abdominal pain,lap denise in 2008, sleeve gastrectomy in 2020, conversion to gastric bypass in 2021, lap assisted ERCP with sphincterotomy in 2022 and 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 MNT Billing: $ Initial Assessment: 1-15 minutes SIGNATURE: Michael Franklin RD PATIENT NAME: Abbey Garcia DATE: May 19, 2023 TIME: 3:57 PM Normal [facility] Urinalysis complete panel (U )on 05-19-2023 Bacteria LM.HPF (Urine sed) [#/Area] Few Abnormal None Seen [facility] Comment on above: Order Comment: Speci men Type: BLOOD SPECIMEN [facility] Address: [address] [place] [address] Performed By: #### 5 7021-8 #### [facility] CLIA [id number] [address] [place] [address] [place] Bilirubin Ql (U) Negative Normal Negative [facility] Comment on above: Order Comment: Speci men Type: BLOOD SPECIMEN [facility] Address: [address] [place] [address] Performed By: #### 5 7021-8 #### [facility] CLIA [id number] [address] [place] [address] [place] Clarity (Unsp spec) Turbid Abnormal Clear [facility] Comment on above: Order Comment: Speci men Type: BLOOD SPECIMEN [facility] Address: [address] [place] [address] Performed By: #### 5 7021-8 #### [facility] CLIA [id number] [address] [place] [address] [place] Color (U) Yellow Normal Yellow [facility] Comment on above: Order Comment: Speci men Type: BLOOD SPECIMEN [facility] Address: [address] [place] [address] Performed By: #### 5 7021-8 #### [facility] CLIA [id number] [address] [place] [address] [place] Epithelial cells LM.HPF (Urine sed) [#/Area] Moderate Normal [facility] Comment on above: Order Comment: Speci men Type: BLOOD SPECIMEN [facility] Address: [address] [place] [address] Performed By: #### 5 7021-8 #### [facility] CLIA [id number] [address] [place] [address] [place] Glucose Test strip (U) [Mass/Vol] Negative Normal Trace, Negative [facility] Comment on above: Order Comment: Speci men Type: BLOOD SPECIMEN [facility] Address: [address] [place] [address] Performed By: #### 5 7021-8 #### [facility] CLIA [id number] [address] [place] [address] [place] Hemoglobin Ql (U) Trace Normal Negative, Trace [facility] Comment on above: Order Comment: Speci men Type: BLOOD SPECIMEN [facility] Address: [address] [place] [address] Performed By: #### 5 7021-8 #### [facility] CLIA [id number] [address] [place] [address] [place] Ketones Ql (U) 2+ Abnormal Negative, Trace [facility] Comment on above: Order Comment: Speci men Type: BLOOD SPECIMEN [facility] Address: [address] [place] [address] Performed By: #### 5 7021-8 #### [facility] CLIA [id number] [address] [place] [address] [place] Leukocyte esterase Test strip Ql (U) 500 Patito/uL Abnormal Negative, 25 Patito/uL [facility] Comment on above: Order Comment: Speci men Type: BLOOD SPECIMEN [facility] Address: [address] [place] [address] Performed By: #### 5 7021-8 #### [facility] CLIA [id number] [address] [place] [address] [place] Nitrite Ql (U) Negative Normal Negative [facility] Comment on above: Order Comment: Speci men Type: BLOOD SPECIMEN [facility] Address: [address] [place] [address] Performed By: #### 5 7021-8 #### [facility] CLIA [id number] [address] [place] [address] [place] pH (U) 6.0 [pH] Normal 5.0-8.0 [facility] Comment on above: Order Comment: Speci men Type: BLOOD SPECIMEN [facility] Address: [address] [place] [address] Performed By: #### 5 7021-8 #### [facility] CLIA [id number] [address] [place] [address] [place] Protein (U) [Mass/Vol] Negative Normal Trace, Negative [facility] Comment on above: Order Comment: Speci men Type: BLOOD SPECIMEN [facility] Address: [address] [place] [address] Performed By: #### 5 7021-8 #### [facility] CLIA [id number] [address] [place] [address] [place] RBC LM.HPF (Urine sed) [#/Area] /[HPF] Abnormal 0-3 /HPF [facility] Comment on above: Order Comment: Speci men Type: BLOOD SPECIMEN [facility] Address: [address] [place] [address] Performed By: #### 5 7021-8 #### [facility] CLIA [id number] [address] [place] [address] [place] Specific gravity (U) [Rel density] 1.012 Normal 1.005-1.030 [facility] Comment on above: Order Comment: Speci men Type: BLOOD SPECIMEN [facility] Address: [address] [place] [address] Performed By: #### 5 7021-8 #### [facility] CLIA [id number] [address] [place] [address] [place] Urobilinogen Ql (U) Normal Normal Normal [facility] Comment on above: Order Comment: Speci men Type: BLOOD SPECIMEN [facility] Address: [address] [place] [address] Performed By: #### 5 7021-8 #### [facility] CLIA [id number] [address] [place] [address] [place] WBC LM.HPF (Urine sed) [#/Area] /[HPF] Abnormal 0-5 /HPF [facility] Comment on above: Order Comment: Speci men Type: BLOOD SPECIMEN [facility] Address: [address] [place] [address] Performed By: #### 5 7021-8 #### [facility] CLIA [id number] [address] [place] [address] [place] .Interpretation:on HCV Ab IA Ql Comment Invalid Interpretation Code [facility] Comment on above: Result Comment: Not infected with HCV unless early or acute infection issuspected (which may be delayed in an immunocompromisedindividual), or other evidence exists to indicate HCV infection.Performed at: [facility] [address] [id number] PhD Cami Neri Performed By: #### 9 [id number], [id number], 1082510, [id number], 6076335, [id number], 8686395, 1103554, [id number] ####[facility] [address] [place] [address] 25(OH)D3 SrideviAlbertnaseem 2023 25-hydroxyvitamin D3 [Mass/Vol] 36.1 ng/mL Normal 31.0-80.0 [facility] Comment on above: Order Comment: Speci men Type: BLOOD SPECIMENOrdering Facility: [facility] Address: [address] [place] [address] Performed By: #### 1 989-3 ####[facility] LABCLIA [id number] [place] [address] [place] Acute Hepatitis A B C Panelo n 05-18-2023 HAV IgM IA Ql Negative Invalid Interpretation Code Negative [facility] Comment on above: Performed By: #### 9 [id number], [id number], 8685761, [id number], 5273896, [id number], 5507299, 4842598, [id number] ####[facility] [address] [place] [address] HBV core IgM IA Ql Negative Invalid Interpretation Code Negative [facility] Comment on above: Performed By: #### 9 [id number], 74160258, 7347186, [id number], 1425394, [id number], 6032637, 9101782, [id number] ####[facility] [address] [place] [address] HBV surface Ag IA Ql Negative Invalid Interpretation Code Negative [facility] Comment on above: Performed By: #### 9 [id number], 72977116, 0361805, [id number], 6327311, [id number], 5312557, 9073311, [id number] ####[facility] [address] [place] [address] HCV IgG IA Ql Non-Reactive Invalid Interpretation Code Non Reactive [facility] Comment on above: Result Comment: Perf ormed at: [facility] [id number] [place], [place] [id number] PhD Cami Neri Performed By: #### 9 [id number], 00509283, 1448149, [id number], 0496742, [id number], 7816171, 5762381, 97926442 ####[facility] [address] [place] [address] CBC W Auto Differential pane l (Bld)on 05-18-2023 Basophils (Bld) [#/Vol] 0.03 10*3/uL Normal <0.11 [facility] Comment on above: Order Comment: Speci men Type: BLOOD SPECIMEN [facility] Address: [address] [place] [address] Performed By: #### 5 7021-8 #### [facility] CLIA [id number] [address] [place] [address] [place] Basophils/100 WBC (Bld) 0.6 % Normal [facility] Comment on above: Order Comment: Speci men Type: BLOOD SPECIMEN [facility] Address: [address] [place] [address] Performed By: #### 5 7021-8 #### [facility] CLIA [id number] [address] [place] [address] [place] Differential cell count method Nom (Bld) Auto Normal [facility] Comment on above: Order Comment: Speci men Type: BLOOD SPECIMEN [facility] Address: [address] [place] [address] Performed By: #### 5 7021-8 #### [facility] CLIA [id number] [address] [place] [address] [place] Eosinophils (Bld) [#/Vol] 0.06 10*3/uL Normal <0.46 [facility] Comment on above: Order Comment: Speci men Type: BLOOD SPECIMEN [facility] Address: [address] [place] [address] Performed By: #### 5 7021-8 #### [facility] CLIA [id number] [address] [place] [address] [place] Eosinophils/100 WBC (Bld) 1.3 % Normal [facility] Comment on above: Order Comment: Speci men Type: BLOOD SPECIMEN [facility] Address: [address] [place] [address] Performed By: #### 5 7021-8 #### [facility] CLIA [id number] [address] [place] [address] [place] Erythrocyte distribution width (RBC) [Ratio] 13.1 % Normal 11.5-15.0 [facility] Comment on above: Order Comment: Speci men Type: BLOOD SPECIMEN [facility] Address: [address] [place] [address] Performed By: #### 5 7021-8 #### [facility] CLIA [id number] [address] [place] [address] [place] Hematocrit (Bld) [Volume fraction] 43.5 % Normal 36.0-46.0 [facility] Comment on above: Order Comment: Speci men Type: BLOOD SPECIMEN [facility] Address: [address] [place] [address] Performed By: #### 5 7021-8 #### [facility] CLIA [id number] [address] [place] [address] [place] Hemoglobin (Bld) [Mass/Vol] 14.8 g/dL Normal 11.5-15.5 [facility] Comment on above: Order Comment: Speci men Type: BLOOD SPECIMEN [facility] Address: [address] [place] [address] Performed By: #### 5 7021-8 #### [facility] CLIA [id number] [address] [place] [address] [place] Immature granulocytes (Bld) [#/Vol] 10*3/uL Normal <0.10 [facility] Comment on above: Order Comment: Speci men Type: BLOOD SPECIMEN [facility] Address: [address] [place] [address] Performed By: #### 5 7021-8 #### [facility] CLIA [id number] [address] [place] [address] [place] Immature granulocytes/100 WBC (Bld) 0.2 % Normal [facility] Comment on above: Order Comment: Speci men Type: BLOOD SPECIMEN [facility] Address: [address] [place] [address] Performed By: #### 5 7021-8 #### [facility] CLIA [id number] [address] [place] [address] [place] Lymphocytes (Bld) [#/Vol] 1.27 10*3/uL Normal 1.00-4.00 [facility] Comment on above: Order Comment: Speci men Type: BLOOD SPECIMEN [facility] Address: [address] [place] [address] Performed By: #### 5 7021-8 #### [facility] CLIA [id number] [address] [place] [address] [place] Lymphocytes/100 WBC (Bld) 26.5 % Normal [facility] Comment on above: Order Comment: Speci men Type: BLOOD SPECIMEN [facility] Address: [address] [place] [address] Performed By: #### 5 7021-8 #### [facility] CLIA [id number] [address] [place] [address] [place] MCH (RBC) [Entitic mass] 30.4 pg Normal 26.0-34.0 [facility] Comment on above: Order Comment: Speci men Type: BLOOD SPECIMEN [facility] Address: [address] [place] [address] Performed By: #### 5 7021-8 #### [facility] CLIA [id number] [address] [place] [address] [place] MCHC (RBC) [Mass/Vol] 34.0 g/dL Normal 30.5-36.0 [facility] Comment on above: Order Comment: Speci men Type: BLOOD SPECIMEN [facility] Address: [address] [place] [address] Performed By: #### 5 7021-8 #### [facility] CLIA [id number] [address] [place] [address] [place] MCV (RBC) [Entitic vol] 89.3 fL Normal 80.0-100.0 [facility] Comment on above: Order Comment: Speci men Type: BLOOD SPECIMEN [facility] Address: [address] [place] [address] Performed By: #### 5 7021-8 #### [facility] CLIA [id number] [address] [place] [address] [place] Monocytes (Bld) [#/Vol] 0.26 10*3/uL Normal <0.87 [facility] Comment on above: Order Comment: Speci men Type: BLOOD SPECIMEN [facility] Address: [address] [place] [address] Performed By: #### 5 7021-8 #### [facility] CLIA [id number] [address] [place] [address] [place] Monocytes/100 WBC (Bld) 5.4 % Normal [facility] Comment on above: Order Comment: Speci men Type: BLOOD SPECIMEN [facility] Address: [address] [place] [address] Performed By: #### 5 7021-8 #### [facility] CLIA [id number] [address] [place] [address] [place] Neutrophils (Bld) [#/Vol] 3.16 10*3/uL Normal 1.45-7.50 [facility] Comment on above: Order Comment: Speci men Type: BLOOD SPECIMEN [facility] Address: [address] [place] [address] Performed By: #### 5 7021-8 #### [facility] CLIA [id number] [address] [place] [address] [place] Neutrophils/100 WBC (Bld) 66.0 % Normal [facility] Comment on above: Order Comment: Speci men Type: BLOOD SPECIMEN [facility] Address: [address] [place] [address] Performed By: #### 5 7021-8 #### [facility] CLIA [id number] [address] [place] [address] [place] Nucleated RBC (Bld) [#/Vol] 10*3/uL Normal <0.01 [facility] Comment on above: Order Comment: Speci men Type: BLOOD SPECIMEN [facility] Address: [address] [place] [address] Performed By: #### 5 7021-8 #### [facility] CLIA [id number] [address] [place] [address] [place] Nucleated RBC/100 WBC (Bld) [Ratio] 0.0 /100 WBC Normal [facility] Comment on above: Order Comment: Speci men Type: BLOOD SPECIMEN [facility] Address: [address] [place] [address] Performed By: #### 5 7021-8 #### [facility] CLIA [id number] [address] [place] [address] [place] Platelet mean volume (Bld) [Entitic vol] 11.8 fL Normal 9.0-12.7 [facility] Comment on above: Order Comment: Speci men Type: BLOOD SPECIMEN [facility] Address: [address] [place] [address] Performed By: #### 5 7021-8 #### [facility] CLIA [id number] [address] [place] [address] [place] Platelets (Bld) [#/Vol] 226 10*3/uL Normal 150-400 [facility] Comment on above: Order Comment: Speci men Type: BLOOD SPECIMEN [facility] Address: [address] [place] [address] Performed By: #### 5 7021-8 #### [facility] CLIA [id number] [address] [place] [address] [place] RBC (Bld) [#/Vol] 4.87 10*6/uL Normal 3.90-5.20 [facility] Comment on above: Order Comment: Speci men Type: BLOOD SPECIMEN [facility] Address: [address] [place] [address] Performed By: #### 5 7021-8 #### [facility] CLIA [id number] [address] [place] [address] [place] WBC (Bld) [#/Vol] 4.79 10*3/uL Normal 3.70-11.00 [facility] Comment on above: Order Comment: Speci men Type: BLOOD SPECIMEN [facility] Address: [address] [place] [address] Performed By: #### 5 7021-8 #### [facility] [id number] [address] [place] [address] [place] CONSULTon 05-18-2023 CONSULT HNO ID: [id number] Author: DEACON KAT MD Service: General Surgery Author Type: Physician Type: Consults Filed: 05/18/2023 20:33 Note Text: GENERAL SURGERY NOTE Abbey Garcia [id number] Subjective CHIEF COMPLAINT: post prandial nausea and vomiting, PO intolerance HISTORY OF PRESENT ILLNESS: Ms. Garcia is a 33 year old female with PMHx anemia, PONV, PCOS, GERD and chronic abdominal pain. She is presenting with chronic postprandial pain and nausea. 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 She reports onset of her chronic pain was prior to any surgeries and her pain improves transiently for various periods of time post-op but eventually returns. Her current symptoms began about 2 weeks ago, s/p MALS surgery on 03/05. Her pain was mostly improved but she still had some discomfort. Post op UGIS on 03/17 showed Postsurgical changes from gastric bypass. No evidence for Obstruction EGD on 03/19 showed Edematous, granular and hemorrhagic mucosa in the body of the stomach, the jejunum appeared normal . CT in 02/2023 with Patchy ground-glass densities in the bilateral lung bases may represent atelectasis. Multiple cystic lesions scattered throughout both lobes of the liver. Postsurgical changes of Tan-en-Y gastric bypass Patient reports gradually advancing from clear liquids to fulls but in the last 2 weeks, pain has gotten so bad that she is only able to tolerate less than 5cc of water before she develops cramping epigastric pain and emesis. Last drink was 2 days ago. [facility] with repeat EGD showing sharp angled gastric pouch. She had a virtual visit with Dr. Kat who instructed her to come to the ED for evaluation. On evaluation, she is hemodynamically stable. CBC and BMP within normal limits. She reports persistent pain and is burping. PAST MEDICAL HISTORY Diagnosis Date Anemia Takes Pro FE daily. 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 ALLERGIES Allergen Reactions Adhesive Tape-Silic* Intolerance Sensitive to certain adhesive tapes. Redness and itchy. Codeine GI Upset Nsaids (Non-Steroid* Contraindication-Me dical Surgical S/p RYGB Objective PHYSICAL EXAM: BP 142/98 Pulse 73 Temp 36.6 ?C (97.9 ?F) Resp 20 Wt 77.1 kg (170 lb) LMP 08/19/2020 SpO2 100% BMI 27.44 kg/m? No intake or output data in the 24 hours ending 05/18/23 1126 CONSTITUTIONAL: Laying in bed in moderate painful distress and burping NEUROLOGIC/PSYCHIAT LYLY: Alert, Oriented x3 HEENT: Sclera non-icteric LUNGS: no increased work of breathing on room air HEART: Regular rate and rhythm ABDOMEN: Soft, epigastric and LUQ tenderness, no rigidity or rebound tenderness, well healed midline scar INTEGUMENTARY: No appreciable rashes or lesions MUSCULOSKELETAL: No deformities DATA: Diagnostic tests reviewed for today's visit: Recent Labs 05/18/23 0953 WBC 4.79 HB 14.8 HCT 43.5 PLT 226 Recent Labs 05/18/23 0953 NA 141 K 4.3 BUN 7 CREAT 0.82 GLUC 79 MG 2.1 TESTING UGI series from February via care everywhere, images not available: Addendum by Corie Garza MD on 04/01/2023 12:58 PM EST Interpreted By: Corie Garza, ADDENDUM: The exam was a single contrast upper GI with small-bowel follow-through Signed by: Corie Garza 04/01/2023 12:58 PM -------- ORIGINAL REPORT -------- Dictation w (more content not included)... Normal [facility] COPPER BLOODon 05-18-2023 Copper [Mass/Vol] 91 ug/dL Normal 80-155 [facility] Comment on above: Order Comment: Geraldo marrero Type: BLOOD SPECIMENOrdering Facility: [facility] Address: [address] [place] [address] Result Comment: This test was developed and its performance characteristics determined by [facility] Pathology and Laboratory Medicine [place] ([facility]). It has not been cleared or approved by the FDA. [facility] is regulated under CLIA as qualified to perform high-complexity testing. This test is used for clinical purposes. It should not be regarded as investigational or for research. Performed By: #### C OPPER ####[facility] LABCLIA [id number] [place] [address] [place] Comprehensive metabolic 2000 panelon 05-18-2023 Albumin [Mass/Vol] 4.7 g/dL Normal 3.9-4.9 [facility] Comment on above: Order Comment: Geraldo marrero Type: BLOOD SPECIMENOrdering Facility: [facility] Address: [address] [place] [address] Performed By: #### 3 040-3, 56172-4, 83342-6 ####[facility] [id number] [place] [address] [place] ALP [Catalytic activity/Vol] 76 U/L Normal 34-123 [facility] Comment on above: Order Comment: Geraldo marrero Type: BLOOD SPECIMENOrdering Facility: [facility] Address: [address] [place] [address] Performed By: #### 3 040-3, , ####[facility] [id number] [place] [address] [place] ALT [Catalytic activity/Vol] 19 U/L Normal 7-38 [facility] Comment on above: Order Comment: Speci men Type: BLOOD SPECIMENOrdering Facility: [facility] Address: [address] [place] [address] Performed By: #### 3 040-3, , ####[facility]ORYCLIA [id number] [place] [address] [place] Anion gap [Moles/Vol] 14 mmol/L Normal 9-18 [facility] Comment on above: Order Comment: Speci men Type: BLOOD SPECIMENOrdering Facility: [facility] Address: [address] [place] [address] Performed By: #### 3 040-3, , ####[facility]ORATORYCLIA [id number] [place] [id number] [place] AST [Catalytic activity/Vol] 42 U/L High 13-35 [facility] Comment on above: Order Comment: Speci men Type: BLOOD SPECIMENOrdering Facility: [facility] Address: [address] [place] [address] Performed By: #### 3 040-3, , ####[facility]ATORYCLIA [id number] [place] [address] [place] Bilirubin [Mass/Vol] 0.4 mg/dL Normal 0.2-1.3 [facility] Comment on above: Order Comment: Speci men Type: BLOOD SPECIMENOrdering Facility: [facility] Address: [address] [place] [address] Performed By: #### 3 040-3, , ####[facility]ATORYCLIA [id number] [place] [address] [place] Calcium [Mass/Vol] 9.2 mg/dL Normal 8.5-10.2 [facility] Comment on above: Order Comment: Speci men Type: BLOOD SPECIMENOrdering Facility: [facility] Address: [address] [place] [address] Performed By: #### 3 040-3, , ####[facility] [id number] [place] [address] [place] Chloride [Moles/Vol] 106 mmol/L High 97-105 [facility] Comment on above: Order Comment: Speci men Type: BLOOD SPECIMENOrdering Facility: [facility] Address: [address] [place] [address] Performed By: #### 3 040-3, , ####[facility] [id number] [place] [id number] [place] CO2 [Moles/Vol] 21 mmol/L Low 22-30 [facility] Comment on above: Order Comment: Speci men Type: BLOOD SPECIMENOrdering Facility: [facility] Address: [address] [place] [address] Performed By: #### 3 040-3, , ####[facility] [id number] [place] [address] [place] Creatinine [Mass/Vol] 0.82 mg/dL Normal 0.58-0.96 [facility] Comment on above: Order Comment: Speci men Type: BLOOD SPECIMENOrdering Facility: [facility] Address: [address] [place] [address] Performed By: #### 3 040-3, , ####[facility] [id number] [place] [address] [place] Creatinine and Glomerular filtration rate.predicted panel (S/P/Bld) 96 mL/min/1.73m??? Normal >=60 [facility] Comment on above: Order Comment: Speci men Type: BLOOD SPECIMENOrdering Facility: [facility] Address: [address] [place] [address] Result Comment: Jessica mated Glomerular Filtration Rate (eGFR) is calculated [...] actual GFR. Performed By: #### 3 040-3, , ####[facility] [id number] [place] [address] [place] Glucose [Mass/Vol] 79 mg/dL Normal 74-99 [facility] Comment on above: Order Comment: Geraldo marrero Type: BLOOD SPECIMENOrdering Facility: [facility] Address: [address] [place] [address] Result Comment: The [place] Diabetes Association (ADA) provides guidance for cutoff [...] Standards of Medical Care in Diabetes 2016, [place] [employer]. Diabetes Care. 2016.39(Suppl 1). Performed By: #### 3 040-3, , ####[facility] [id number] [place] [address] [place] Potassium [Moles/Vol] 4.3 mmol/L Normal 3.7-5.1 [facility] Comment on above: Order Comment: Geraldo marrero Type: BLOOD SPECIMENOrdering Facility: [facility] Address: [address] [place] [address] Performed By: #### 3 040-3, 97562-0, ####[facility] [id number] [place] [address] [place] Protein [Mass/Vol] 7.4 g/dL Normal 6.3-8.0 [facility] Comment on above: Order Comment: Speci men Type: BLOOD SPECIMENOrdering Facility: [facility] Address: [address] [place] [address] Performed By: #### 3 040-3, , ####[facility] [id number] [place] [address] [place] Sodium [Moles/Vol] 141 mmol/L Normal 136-144 [facility] Comment on above: Order Comment: Speci men Type: BLOOD SPECIMENOrdering Facility: [facility] Address: [address] [place] [address] Performed By: #### 3 040-3, , ####[facility]ORY[facility]IA [id number] [place] [address] [place] Urea nitrogen [Mass/Vol] 7 mg/dL Normal 7-21 [facility] Comment on above: Order Comment: Speci men Type: BLOOD SPECIMENOrdering Facility: [facility] Address: [address] [place] [address] Performed By: #### 3 040-3, , ####[facility]ORY[facility] [id number] [place] [id number] [place] Copper Lvlon 05-18-2023 Copper [Mass/Vol] 90 microgram/dL Invalid Interpretation Code 80-158 [facility] Comment on above: Result Comment: This test was developed and its performance characteristicsdetermined by [facility]. It has not been cleared or approvedby the Food and Drug Administration.Detection Limit = 5Performed at: [address] [id number] MD Jhonathan Dai Performed By: #### 9 [id number], [id number], 9856804, [id number], 7812823, [id number], 8815374, 2367448, [id number] ####[facility] [address] [place] [id number] ED PROV NOTEon 05-18-2023 ED PROV NOTE HNO ID: [id number] Author: PETE NICKERSON MD Service: Emergency Medicine Author Type: Physician Type: ED Provider Notes Filed: 05/18/2023 12:35 Note Text: ED Provider Note Patient Name: Abbey Garcia : 1990 SERVICE DATE: 05/18/23 History Patient presents with: Sent By Md: Sent by for admission due to patient being unable to eat/drink for two weeks, pt states she has extreme pain in her stomach pouch, hx of gastric bypass last year. Patient endorses N/V. Patient states last BM was 2 days ago. Recent admission for malnutrition. Patient presents with abdominal pains, nausea and vomiting. Is status post gastric bypass with Dr. Kat last year, recent open MALS surgery. States she developed left-sided abdominal pains, nausea and vomiting 2 weeks ago, was seen at outside ER where she had CT scan done, also had EGD done, states reports have been sent to her surgeon. States every time she eats or drinks something she develops abdominal pains, vomits about 10 minutes later, has not been able to keep down any food or drink over the past 2 weeks. Has felt very weak and lightheaded. No syncope or falls. No chest pains or dyspnea. No change in bowel movements. Has not been urinating very much which she attributes to dehydration. No fever. PAST MEDICAL HISTORY Diagnosis Date Anemia Takes Pro FE daily. Arthritis Asthma Chronic nausea 09/25/2019 Class 1 obesity without serious comorbidity with [...] and itchy. Codeine GI Upset Nsaids (Non-Steroid* Contraindication-Me dical Surgical S/p RYGB Review of Systems Physical Exam Vitals BP Pulse Temp Temp src Resp SpO2 Weight Height 05/18/23 0659 05/18/23 0659 05/18/23 0702 05/18/23 0659 05/18/23 0659 05/18/23 0659 05/18/23 0702 -- 142/98 (!) 94 36.6 ?C (97.9 ?F) Oral 20 100 % 77.1 kg (170 lb) Physical Exam Vitals and nursing note reviewed. Constitutional: General: She is not in acute distress. HENT: Head: Normocephalic. Nose: Nose normal. Mouth/Throat: Mouth: Mucous membranes are dry. Eyes: Conjunctiva/sclera: Conjunctivae normal. Cardiovascular: Rate and Rhythm: Normal rate and regular rhythm. Pulses: Normal pulses. Heart sounds: Normal heart sounds. Pulmonary: Effort: Pulmonary effort is normal. Breath sounds: Normal breath sounds. Abdominal: Palpations: Abdomen is soft. Comments: Left-sided abdominal tenderness, no peritoneal signs Musculoskeletal: General: No swelling. Cervical back: Neck supple. Skin: General: Skin is warm and dry. Capillary Refill: Capillary refill takes less than 2 seconds. Neurological: Mental Status: She is alert. Comments: Alert, mentating and answering questions appropriately Psychiatric: Mood and Affect: Mood normal. Behavior: Behavior normal. Diagnostic Testing ED Labs Ordered and Reviewed COMP METABOLIC PANEL - Abnormal; Notable for the following components: Result Value Ref Range AST 42 (*) 13 - 35 U/L Chloride 106 (*) 97 - 105 mmol/L CO2 21 (*) 22 - 30 mmol/L All other components within normal limits MAGNESIUM BLD - Normal LIPASE BLD - Normal CBC + DIFF URINALYSIS, WITH MICROSCOPIC Procedures ED Course / Clinical Impression Clinical Impressions as of 05/18/23 1235 Intractable abdominal pain S/P gastric bypass Nausea and vomiting, unspecified vomiting type MDM / Disposition / Plan Patient presents with 2-week history of left-sided abdominal pains, nausea vomiting, not able to keep down any fluids or drink. She arri (more content not included)... Normal [facility] Folate SerPl-mCncon 05-18-19 Folate [Mass/Vol] 10.3 ng/mL Normal >4.7 [facility] Comment on above: Order Comment: Speci men Type: BLOOD SPECIMEN Ordering Facility: [facility] Address: [address] [address] Performed By: #### 2 4321-2 #### [facility] CLIA [id number] [address] [place] [address] [place] HIV Screen 4th Generation wR fxon 05-18-2023 HIV 1+2 Ab+HIV1 p24 Ag IA Ql Non-Reactive Invalid Interpretation Code Non Reactive [facility] Comment on above: Result Comment: HIV NegativeHIV-1/HIV-2 antibodies and HIV-1 p24 antigen were NOT detected.There is no laboratory evidence of HIV infection.Performed at: [facility] [id number] PhD Cami Neri Performed By: #### 9 [id number], 30992590, 1084409, [id number], 6376735, [id number], 5296981, 4770903, 97670259 ####[facility] [address] [id number] Iron and Iron binding capaci ty panelon 05-18-2023 Iron [Mass/Vol] 81 ug/dL Normal 41-186 [facility] Comment on above: Order Comment: Speci men Type: BLOOD SPECIMEN Ordering Facility: [facility] Address: [address] [id number] Performed By: #### 2 4321-2 #### [facility] CLIA [id number] [address] [place] [address] [place] Iron binding capacity [Mass/Vol] 292 ug/dL Normal 232-386 [facility] Comment on above: Order Comment: Speci men Type: BLOOD SPECIMEN Ordering Facility: [facility] Address: [address] [address] Performed By: #### 2 4321-2 #### [facility] CLIA [id number] [place] [address] [place] Iron/TIBC [Molar ratio] 27.7 % Normal 15.0-57.0 [facility] Comment on above: Order Comment: Speci men Type: BLOOD SPECIMEN Ordering Facility: [facility] Address: [address] [address] Performed By: #### 2 4321-2 #### [facility] CLIA [id number] [address] [place] [address] [place] Lipase SerPl-cCncon 05-18-19 24 Lipase [Catalytic activity/Vol] 37 U/L Normal 16-61 [facility] Comment on above: Order Comment: Speci men Type: BLOOD SPECIMENOrdering Facility: [facility] Address: [address] [place] [address] Performed By: #### 3 040-3, 67110-1, 73686-4 ####[facility] [id number] [place] [address] [place] Magnesium SerPl-mCncon 05-17 Magnesium [Mass/Vol] 2.1 mg/dL Normal 1.7-2.3 [facility] Comment on above: Order Comment: Speci men Type: BLOOD SPECIMENOrdering Facility: [facility] Address: [address] [place] [address] Performed By: #### 3 040-3, 45304-7, 79522-6 ####[facility] [id number] [address] [address] [place] NURSING PROGon 05-18-2023 NURSING PROG HNO ID: [id number] Author: MICHAELA ANGUIANO RN Service: Nursing Author Type: Registered Nurse Type: Nursing Progress Note Filed: 05/18/2023 19:30 Note Text: Transfer Note: PATIENT NAME: Abbey Garcia Patient Location: -PK3A10/-PK3A-1 0 Room: -LO1S-08 Patient transferred into room/unit PK310 in stable condition. Actions taken: No futher actions taken at this time. Will continue to monitor and check with patient. Normal [facility] Prealb SerPl-mCncon 05-18-19 24 Prealbumin [Mass/Vol] 13 mg/dL Low 17-36 [facility] Comment on above: Order Comment: Geraldo marrero Type: BLOOD SPECIMEN Ordering Facility[facility] Address: [address] [address] Performed By: #### 2 4321-2 #### [facility] CLIA [id number] [place] [address] [place] Transferrin SerPl-mCncon Transferrin [Mass/Vol] 239 mg/dL Normal 200-360 [facility] Comment on above: Order Comment: Geraldo marrero Type: BLOOD SPECIMEN Ordering Facility: [facility] Address: [address] [address] Performed By: #### 2 4321-2 #### [facility] CLIA [id number] [place] [address] [place] VITAMIN B1 PLASMAon 05-18-19 24 VITAMIN B1, PLASMA 5 nmol/L Normal 4-15 [facility] Comment on above: Order Comment: Geraldo marrero Type: BLOOD SPECIMEN Ordering Facility: [facility] Address: [address] [place] [address] Result Comment: INTE RPRETIVE DATA: Vitamin B1, Plasma Thiamine (vitamin B1) is reported. However, thiamine diphosphate (TDP), the biologically active form of thiamine, is not found in measurable concentrations in plasma, and is best determined in whole blood specimens. Plasma thiamine concentration reflects recent intake rather than body stores. This test was developed and its performance characteristics determined by [facility]. It has not been cleared or approved by the [place] Food and Drug Administration. This test was performed in a CLIA certified laboratory and is intended for clinical purposes. Performed By: [facility] [address] [place] [address] Framing Inspector: Kirt Murphy MD, PhD CLIA Number: [id number] Performed By: #### 5 8410-2 #### [facility] CLIA [id number] [address] [place] [address] [place] VITAMIN B6/PYRIDOXINon 05-17 VITAMIN B6 39.1 nmol/L Normal 20.0-125.0 [facility] Comment on above: Order Comment: Speci men Type: BLOOD SPECIMEN Ordering Facility: [facility] Address: [address] [place] [address] Result Comment: INTE RPRETIVE INFORMATION: Vitamin B6 (Pyridoxal 5-Phosphate) Pyridoxal 5'-phosphate measured in a specimen collected following an 8-hour or overnight fast accurately indicates vitamin B6 nutritional status. Non-fasting specimen concentration reflects recent vitamin intake. This test was developed and its performance characteristics determined by [facility]. It has not been cleared or approved by the US Food and Drug Administration. This test was performed in a CLIA certified laboratory and is intended for clinical purposes. Performed By: [facility] [address] [place] [address] Framing Inspector: Kirt Murphy MD, PhD CLIA Number: [id number] Performed By: #### H CG #### [facility] CLIA [id number] [address] [place] [address] [place] Vit A SerPl-mCncon 4 Retinol [Mass/Vol] 0.17 mg/L Low 0.30-1.20 [facility] Comment on above: Order Comment: Speci men Type: BLOOD SPECIMEN Ordering Facility: [facility] Address: [address] [place] [address] Result Comment: This test was developed and its performance characteristics determined by [facility]'s Lucie JRenetta [facility] [place] ([facility]). It has not been cleared or approved by the FDA. [facility] is regulated under CLIA as qualified to perform high-complexity testing. This test is used for clinical purposes. It should not be regarded as investigational or for research. Performed By: #### 5 8410-2 #### [facility] CLIA [id number] [address] [place] [address] OF [place] Vit B12 SerPl-mCncon 024 Cobalamin (Vitamin B12) [Mass/Vol] 1155 pg/mL Normal 232-1245 [facility] Comment on above: Order Comment: Speci men Type: BLOOD SPECIMEN Ordering Facility: [facility] Address: [address] [place] [address] Performed By: #### 2 4321-2 #### [facility] CLIA [id number] [place] [address] [place] ZINC, WHOLE BLOODon 05-18-19 24 ZINC, WHOLE BLOOD 670.6 ug/dL Normal 440.0-860.0 [facility] Comment on above: Order Comment: Speci men Type: BLOOD SPECIMENOrdering Facility: [facility] Address: [address] [place] [address] Result Comment: INTE RPRETIVE DATA: Zinc Quantitative, Whole Blood Elevated results may be due to skin or collection-related contamination, including the use of a noncertified metal-free collection/transport tube. If contamination concerns exist due to elevated levels of blood zinc, confirmation with a second specimen collected in a certified metal-free tube is recommended. Zinc concentration in blood has not been shown to change significantly in deficiency or with supplementation. This test was developed and its performance characteristics determined by [facility]. It has not been cleared or approved by the US Food and Drug Administration. This test was performed in a CLIA certified laboratory and is intended for clinical purposes. Performed By: [facility] [address] [place] [address] Framing Inspector: Kirt Murphy MD, PhD CLIA Number: [id number] Performed By: #### Z INCWB ####[facility] [id number] [place] [address] CBC w/ Auto Diffon 4 Basophils/100 WBC (Bld) 0.7 % Normal 0.0-2.0 [facility] Comment on above: Performed By: #### 1 3899119, 4451441, 8222513, 1804311 ####[facility] [address] [address] Basophils/Leukocyte s Auto (Bld) [Pure # fraction] 0.0 E9/L Normal 0.0-0.2 [facility] Comment on above: Performed By: #### 1 1646338, 8126223, 4229074, 2410956 ####[facility] [address] [place] [address] Eosinophils (Bld) [#/Vol] 0.1 E9/L Normal 0.0-0.5 [facility] Comment on above: Performed By: #### 1 8513377, 2642298, 0232220, 6015606 ####[address] [address] Eosinophils/100 WBC (Bld) 1.9 % Normal 0.0-8.0 [facility] Comment on above: Performed By: #### 1 4708262, 3139786, 5185845, 1149900 ####[address] [address] Erythrocyte distribution width (RBC) [Ratio] 14.1 % Normal 10.9-14.2 [facility] Comment on above: Performed By: #### 1 2180421, 2179334, 6312280, 7574639 ####[address] [address] Hematocrit (Bld) [Volume fraction] 41.1 % Normal 34.0-46.0 [facility] Comment on above: Performed By: #### 1 1804792, 6075895, 8469502, 8666962 ####[address] [address] Hemoglobin (Bld) [Mass/Vol] 13.7 g/dL Normal 12.0-16.0 [facility] Comment on above: Performed By: #### 1 4738831, 5569237, 1865930, 3848007 ####[address] [address] Lymphocytes (Bld) [#/Vol] 1.4 E9/L Normal 1.0-4.0 [facility] Comment on above: Performed By: #### 1 6723150, 3824958, 6791944, 4294015 ####[address] [address] Lymphocytes/100 WBC (Bld) 38.9 % Normal 14.0-50.0 [facility] Comment on above: Performed By: #### 1 0241399, 0817317, 0847423, 4586967 ####[address] [address] MCH (RBC) [Entitic mass] 29.8 pg Normal 27.0-34.0 [facility] Comment on above: Performed By: #### 1 1432974, 2681680, 2053157, 9560649 ####[address] [address] MCHC (RBC) [Mass/Vol] 33.3 g/dL Normal 31.4-36.0 [facility] Comment on above: Performed By: #### 1 9626742, 6203428, 3076777, 9917850 ####[address] [address] MCV (RBC) [Entitic vol] 89.5 fL Normal 80.0-100.0 [facility] Comment on above: Performed By: #### 1 4992434, 2915674, 9571287, 3154749 ####[address] [place] [address] Monocytes (Bld) [#/Vol] 0.2 E9/L Normal 0.2-1.0 [facility] Comment on above: Performed By: #### 1 3140668, 6561406, 1249975, 3575440 ####[address] [address] Neutrophils (Bld) [#/Vol] 1.9 E9/L Low 2.0-7.5 [facility] Comment on above: Performed By: #### 1 5003160, 3095641, 9069810, 3026722 ####[address] [address] Neutrophils/100 WBC (Bld) 52.6 % Normal 36.0-75.0 [facility] Comment on above: Performed By: #### 1 1914875, 2986857, 6861583, 5169318 ####[facility] [address] [place] [address] Platelet 195.0 E9/L Normal 150.0-500.0 [facility] Comment on above: Performed By: #### 1 2458536, 6874228, 4688857, 0220381 ####[facility] [address] [place] [address] Platelet mean volume (Bld) [Entitic vol] 9.0 fL Normal 6.4-10.8 [facility] Comment on above: Performed By: #### 1 9706644, 6323502, 0257505, 4672164 ####[address] [address] RBC (Bld) [#/Vol] 4.6 E12/L Normal 4.3-5.9 [facility] Comment on above: Performed By: #### 1 9441023, 3548536, 2559720, 8748795 ####[address] [place] [address] WBC corrected for nucl RBC Auto (Bld) [#/Vol] 3.6 E9/L Low 4.0-11.0 [facility] Comment on above: Performed By: #### 1 2969874, 0300279, 4965783, 6013815 ####[address] [address] CHEMISTRYOrdered By: SYSTEM SYSTEM on 05-17-2023 Albumin [Mass/Vol] 4.5 g/dL Normal 3.3 - 5.0 gm/dL R emisol Chem Albumin/Globulin [Mass ratio] 1.6 {ratio} Normal 1.1 - 2.2 [facility] ALP [Catalytic activity/Vol] 61 [iU]/d Normal 21 - 98 Int._Unit/L [facility] ALT No additional P-5'-P [Catalytic activity/Vol] 17 [iU]/d Normal 6 - 46 Int._Unit/L [facility] Anion gap [Moles/Vol] 12 mmol/L Normal 6 - 16 mEq/L [facility] AST [Catalytic activity/Vol] 30 [iU]/d Normal 5 - 43 Int._Unit/L [facility] Bilirubin [Mass/Vol] 0.5 mg/dL Normal 0.0 - 1.1 mg/dL [facility] Calcium [Mass/Vol] 9.2 mg/dL Normal 8.9 - 11.1 mg/dL [facility] Chloride [Moles/Vol] 106 mmol/L Normal 101 - 111 mmol/L [facility] CO2 [Moles/Vol] 24 mmol/L Normal 21 - 31 mmol/L [facility]is ol Chem Creatinine [Mass/Vol] 0.9 mg/dL Normal 0.5 - 1.3 mg/dL [facility] eGFR 86 mL/min/1.73 m2 Normal >=59mL/min/1.73 m2 [facility] Globulin (S) [Mass/Vol] 2.9 g/dL Normal 1.4 - 4.0 gm/dL [facility] Glucose [Mass/Vol] 80 mg/dL Normal 55 - 199 mg/dL Re misol Chem Magnesium [Mass/Vol] 2.1 mg/dL Normal 1.3 - 2.4 mg/dL [facility] Potassium [Moles/Vol] 3.8 mmol/L Normal 3.5 - 5.3 mmol/L [facility] Protein [Mass/Vol] 7.4 g/dL Normal 6.0 - 7.8 gm/dL R emisol Chem Sodium [Moles/Vol] 138 mmol/L Normal 135 - 145 mmol/L [facility] Urea nitrogen [Mass/Vol] 6 mg/dL Normal 5 - 21 mg/dL [facility] Urea nitrogen/Creatinine [Mass ratio] 7 mg/mg Low 10 - 20 [facility] CMPon 05-17-2023 Albumin [Mass/Vol] 4.5 g/dL Normal 3.3-5.0 [facility] Comment on above: Performed By: #### 1 4386478, 7294769, 2382868, 2089925 ####[facility] [address] [place] [address] Albumin/Globulin (S) [Mass conc ratio] 1.6 Normal 1.1-2.2 [facility] Comment on above: Performed By: #### 1 6562509, 9297943, 4648903, 2242469 ####[facility] [address] [place] [address] ALP [Catalytic activity/Vol] 61 Int._Unit/L Normal 21-98 [facility] Comment on above: Performed By: #### 1 5219578, 1043047, 4732251, 9586852 ####[facility] [address] [place] [address] ALT No additional P-5'-P [Catalytic activity/Vol] 17 Int._Unit/L Normal 6-46 [facility] Comment on above: Performed By: #### 1 0070547, 6863658, 6020644, 7883831 ####[facility] [address] [place] [address] Anion gap [Moles/Vol] 12 mmol/L Normal 6-16 [facility] Comment on above: Performed By: #### 1 2786918, 8799807, 2138593, 1080038 ####[facility] [address] [place] [address] AST [Catalytic activity/Vol] 30 Int._Unit/L Normal 5-43 [facility] Comment on above: Performed By: #### 1 1870929, 1982334, 1700844, 6686475 ####[facility] [address] [place] [address] Bilirubin [Mass/Vol] 0.5 mg/dL Normal 0.0-1.1 [facility] Comment on above: Performed By: #### 1 4499704, 2533882, 4269374, 6176661 ####[facility] [address] [place] [address] Calcium [Mass/Vol] 9.2 mg/dL Normal 8.9-11.1 [facility] Comment on above: Performed By: #### 1 8521740, 7844630, 3644695, 4997135 ####[facility] [address] [place] [address] Chloride [Moles/Vol] 106 mmol/L Normal 101-111 [facility] Comment on above: Performed By: #### 1 2421746, 9623274, 0121288, 2370324 ####[facility] [address] [place] [address] CO2 [Moles/Vol] 24 mmol/L Normal 21-31 [facility] Comment on above: Performed By: #### 1 3566598, 4368311, 1922433, 5601335 ####[facility] [address] [place] [address] Creatinine [Mass/Vol] 0.9 mg/dL Normal 0.5-1.3 [facility] Comment on above: Performed By: #### 1 8111447, 8291703, 9577700, 5438693 ####[facility] [address] [place] [address] Globulin (S) [Mass/Vol] 2.9 g/dL Normal 1.4-4.0 [facility] Comment on above: Performed By: #### 1 9591225, 0436915, 3483189, 9825314 ####[facility] [address] [place] [address] Glucose [Mass/Vol] 80 mg/dL Normal 55-199 [facility] Comment on above: Performed By: #### 1 3572704, 1925243, 7670714, 4138529 ####[facility] [address] [place] [address] Potassium [Moles/Vol] 3.8 mmol/L Normal 3.5-5.3 [facility] Comment on above: Performed By: #### 1 2148247, 9206400, 5587113, 9818182 ####[facility] [address] [place] [address] Protein [Mass/Vol] 7.4 g/dL Normal 6.0-7.8 [facility] Comment on above: Performed By: #### 1 0288185, 8679402, 3969448, 8355532 ####[facility] [address] [place] [address] Sodium [Moles/Vol] 138 mmol/L Normal 135-145 [facility] Comment on above: Performed By: #### 1 7689570, 0929082, 0507365, 4484079 ####[facility] [address] [place] [address] Urea nitrogen [Mass/Vol] 6 mg/dL Normal 5-21 [facility] Comment on above: Performed By: #### 1 2247243, 1654956, 9432838, 7941941 ####[facility] [address] [place] [address] Urea nitrogen/Creatinine [Mass ratio] 7 No Units Low 10-20 [facility] Comment on above: Performed By: #### 1 3906396, 0452663, 9750270, 4643649 ####[facility] [address] [place] [address] Consent for Treatmenton Consent for Treatment [id number]#1.00TIFF Normal [facility] Discharge Instructionson Discharge Instructions [id number]#1.00TIFF Normal [facility] ED Clinical Summaryon 2023 ED Clinical Summary Normal [facility] ED Note-Physicianon 05-17-19 ED Note-Physician Normal [facility] Comment on above: Result Comment: Elec tronically Signed By: Tiffani Cunningham PA-C\.br\Date and Time Signed: 05/17/23 15:46 EDT\.br\Electronically Co-Signed By: Ashutosh Albright M.D.\.br\Date and Time Co-Signed: 05/17/23 17:49 EDT ED Patient Education Noteon 05-17-2023 ED Patient Education Note Normal [facility] ED Patient Summaryon 024 ED Patient Summary Normal [facility] HEMATOLOGYOrdered By: SYSTEM SYSTEM on 05-17-2023 Basophils/100 WBC (Bld) 0.7 % Normal 0.0 - 2.0 % [facility] Heme Basophils/Leukocyte s Auto (Bld) [Pure # fraction] 0.0 E9/L Normal 0.0 - 0.2 E9/L [facility] Eosinophils (Bld) [#/Vol] 0.1 E9/L Normal 0.0 - 0.5 E9/L [facility] Eosinophils/100 WBC (Bld) 1.9 % Normal 0.0 - 8.0 % [facility] Erythrocyte distribution width (RBC) [Ratio] 14.1 % Normal 10.9 - 14.2 % [facility] Hematocrit (Bld) [Volume fraction] 41.1 % Normal 34.0 - 46.0 % [facility] Hemoglobin (Bld) [Mass/Vol] 13.7 g/dL Normal 12.0 - 16.0 gm/dL [facility] Lymphocytes (Bld) [#/Vol] 1.4 E9/L Normal 1.0 - 4.0 E9/L [facility] Lymphocytes/100 WBC (Bld) 38.9 % Normal 14.0 - 50.0 % [facility] MCH (RBC) [Entitic mass] 29.8 pg Normal 27.0 - 34.0 pg [facility] MCHC (RBC) [Mass/Vol] 33.3 g/dL Normal 31.4 - 36.0 gm/dL [facility] MCV (RBC) [Entitic vol] 89.5 fL Normal 80.0 - 100.0 fL [facility] Monocytes (Bld) [#/Vol] 0.2 E9/L Normal 0.2 - 1.0 E9/L [facility] Monocytes/100 WBC (Bld) 5.9 % Normal 4.0 - 14.0 % [facility] Neutrophils (Bld) [#/Vol] 1.9 E9/L Low 2.0 - 7.5 E9/L [facility] Neutrophils/100 WBC (Bld) 52.6 % Normal 36.0 - 75.0 % [facility] Platelet 195.0 E9/L Normal 150.0 - 500.0 E9/L Remiso l Heme Platelet mean volume (Bld) [Entitic vol] 9.0 fL Normal 6.4 - 10.8 fL [facility] RBC (Bld) [#/Vol] 4.6 E12/L Normal 4.3 - 5.9 E12/L Re misol Heme WBC corrected for nucl RBC Auto (Bld) [#/Vol] 3.6 E9/L Low 4.0 - 11.0 E9/L [facility] Heme Magnesiumon 05-17-2023 Magnesium [Mass/Vol] 2.1 mg/dL Normal 1.3-2.4 [facility] Comment on above: Performed By: #### 1 5760889, 9266853, 8742924, 9436244 ####[facility] [address] [place] [address] Population Healthon 05-17-19 24 Population Health Normal [facility] Pre-Arrival Noteon Pre-Arrival Note Normal [facility] eGFRon 05-17-2023 eGFR 86 mL/min/1.73 m2 Normal >=59 [facility] Comment on above: Order Comment: Order added by Discern Expert. Performed By: #### 1 2589827, 4268364, 1954929, 6712787 ####[facility] [address] [place] [address] BMPon 05-14-2023 Anion gap [Moles/Vol] 8 mmol/L Normal 6-16 [facility] Comment on above: Performed By: #### 9 29859834, 81679203, 9935166, 5290440444, 9743187, 5000685333, 8090414, 3527711, 91686989 ####[facility] [address] [place] [address] Calcium [Mass/Vol] 8.6 mg/dL Low 8.9-11.1 [facility] Comment on above: Performed By: #### 9 98887581, 14722121, 7762247, 9889727347, 2380979, 3458623184, 4456494, 6568541, 39832837 ####[facility] [address] [place] [address] Chloride [Moles/Vol] 110 mmol/L Normal 101-111 [facility] Comment on above: Performed By: #### 9 61589392, 76348971, 0336116, 6273163273, 2167404, 9141149290, 1268349, 0351304, 90240601 ####[facility] [address] [place] [address] CO2 [Moles/Vol] 26 mmol/L Normal 21-31 [facility] Comment on above: Performed By: #### 9 98887853, 39509051, 6491688, 8137572456, 0283155, [id number], 8231977, 2428220, 67421759 ####[facility] [address] [place] [address] Creatinine [Mass/Vol] 0.9 mg/dL Normal 0.5-1.3 [facility] Comment on above: Performed By: #### 9 98888443, 61523811, 3957878, 3855199633, 0198924, 4387356413, 8046646, 0031040, 11066177 ####[facility] [address] [place] [address] Glucose [Mass/Vol] 96 mg/dL Normal 55-199 [facility] Comment on above: Performed By: #### 9 94347761, 12189404, 2558065, 2726768800, 6772135, 4250482307, 6364086, 9890890, 01477011 ####[facility] [address] [place] [address] Potassium [Moles/Vol] 4.0 mmol/L Normal 3.5-5.3 [facility] Comment on above: Performed By: #### 9 78629970, 52068043, 1844636, 5288872041, 3354986, 7222656399, 4547470, 4605983, 13019015 ####[facility] [address] [place] [address] Sodium [Moles/Vol] 140 mmol/L Normal 135-145 [facility] Comment on above: Performed By: #### 9 11798154, 37801872, 5032711, 1539358752, 5975585, 0952762397, 5647154, 5057849, 90208231 ####[facility] [address] [place] [address] Urea nitrogen [Mass/Vol] 5 mg/dL Normal 5-21 [facility] Comment on above: Performed By: #### 9 83800479, 89277308, 4987154, 0805287662, 2305821, 5140598935, 5995980, 2522517, 92278113 ####[address] [place] [address] Urea nitrogen/Creatinine [Mass ratio] 6 No Units Low 10-20 [facility] Comment on above: Performed By: #### 9 12709386, 75603654, 3656215, 1689832093, 6113567, 3440568690, 9583814, 6881730, 82933651 ####[facility] [address] [place] [address] CBC w/ Auto Diffon 4 Basophils/100 WBC (Bld) 1.4 % Normal 0.0-2.0 [facility] Comment on above: Performed By: #### 9 21521401, 66333338, 4214839, 5835813390, 1217066, 4995805709, 1467051, 9542168, 52508947 ####[address] [place] [address] Basophils/Leukocyte s Auto (Bld) [Pure # fraction] 0.0 E9/L Normal 0.0-0.2 [facility] Comment on above: Performed By: #### 9 48777658, 92164835, 2223198, 8371768866, 9151929, 1452954150, 1422511, 1045750, 91964901 ####[facility] [address] [place] [address] Eosinophils (Bld) [#/Vol] 0.1 E9/L Normal 0.0-0.5 [facility] Comment on above: Performed By: #### 9 97249528, 94057672, 3463559, 5241497226, 8133919, 4960937378, 3532897, 2781228, 48025665 ####[address] [place] [address] Eosinophils/100 WBC (Bld) 6.1 % Normal 0.0-8.0 [facility] Comment on above: Performed By: #### 9 22532474, 83792236, 5876622, 3145317545, 9506742, 9943671571, 2879620, 6475451, 44925636 ####[address] [place] [address] Erythrocyte distribution width (RBC) [Ratio] 14.4 % High 10.9-14.2 [facility] Comment on above: Performed By: #### 9 60925723, 30066539, 0006174, 3222340688, 0831490, 7291184343, 3925387, 5807791, 70913730 ####[address] [place] [address] Hematocrit (Bld) [Volume fraction] 36.1 % Normal 34.0-46.0 [facility] Comment on above: Performed By: #### 9 66921943, 85328454, 7784378, 7906937964, 2375229, 0345376233, 1665693, 5209858, 25669705 ####[address] [address] Hemoglobin (Bld) [Mass/Vol] 12.2 g/dL Normal 12.0-16.0 [facility] Comment on above: Performed By: #### 9 63655545, 09785852, 2515551, 3863757492, 0035239, 9496942715, 4479244, 3319586, 70120710 ####[address] [address] Lymphocytes (Bld) [#/Vol] 1.1 E9/L Normal 1.0-4.0 [facility] Comment on above: Performed By: #### 9 10096050, 80219661, 1722726, 1123586796, 6345648, 7700037208, 6769487, 3326795, 87220060 ####[address] [place] [address] Lymphocytes/100 WBC (Bld) 51.0 % High 14.0-50.0 [facility] Comment on above: Performed By: #### 9 79108883, 07570461, 2550935, 8862411322, 6640496, 4004598173, 4857499, 8995981, 35980328 ####[address] [place] [address] MCH (RBC) [Entitic mass] 30.3 pg Normal 27.0-34.0 [facility] Comment on above: Performed By: #### 9 00607518, 45086209, 9491034, 4149193183, 2416768, 1295841847, 6210619, 8383971, 02069044 ####[address] [address] MCHC (RBC) [Mass/Vol] 33.9 g/dL Normal 31.4-36.0 [facility] Comment on above: Performed By: #### 9 23639849, 04513211, 4714025, 2345534573, 8647023, 1033593595, 0153422, 2712972, 12200809 ####[address] [address] MCV (RBC) [Entitic vol] 89.3 fL Normal 80.0-100.0 [facility] Comment on above: Performed By: #### 9 51653885, 61845630, 5900713, 6042115907, 0747267, 5828820827, 9094264, 1463719, 60482239 ####[address] [address] Monocytes (Bld) [#/Vol] 0.1 E9/L Low 0.2-1.0 [facility] Comment on above: Performed By: #### 9 51450607, 36434039, 4754934, 4722895395, 4058349, 8467411096, 4723937, 8078531, 25125046 ####[address] [place] [address] Neutrophils (Bld) [#/Vol] 0.8 E9/L Low 2.0-7.5 [facility] Comment on above: Performed By: #### 9 91428254, 05210605, 3879783, 4190250912, 4414138, 9673002802, 8962197, 8310795, 51494279 ####[address] [place] [address] Neutrophils/100 WBC (Bld) 36.8 % Normal 36.0-75.0 [facility] Comment on above: Performed By: #### 9 43725352, 41025026, 0776656, 9250480327, 7202880, 3870039693, 8259462, 9323725, 95063317 ####[address] [address] Platelet mean volume (Bld) [Entitic vol] 9.3 fL Normal 6.4-10.8 [facility] Comment on above: Performed By: #### 9 40283697, 00204998, 6016206, 9937910544, 2893187, 5705276431, 5952301, 4889537, 18533103 ####[address] [address] Platelets (Bld) [#/Vol] 167.0 E9/L Normal 150.0-500.0 [facility] Comment on above: Performed By: #### 9 38340220, 92094992, 2067975, 5116445088, 0653964, 1030055806, 3971081, 0721897, 09555871 ####[address] [address] RBC (Bld) [#/Vol] 4.0 E12/L Low 4.3-5.9 [facility] Comment on above: Performed By: #### 9 02221036, 24988207, 2079737, 7825553127, 0399996, 9473131081, 4277722, 6485931, 49726540 ####[facility] [address] [place] [address] WBC corrected for nucl RBC Auto (Bld) [#/Vol] 2.1 E9/L Low 4.0-11.0 [facility] Comment on above: Result Comment: Resu lts consistant with previous path review on 05/13/23, reviewed by [email or web address] Performed By: #### 9 48318307, 46859984, 1742412, 4040532136, 4120413, 3546939663, 5230023, 0352193, 42643804 ####[facility] [address] [place] [address] CHEMISTRYOrdered By: SYSTEM SYSTEM on 05-14-2023 Anion gap [Moles/Vol] 8 mmol/L Normal 6 - 16 mEq/L Remisol Chem Calcium [Mass/Vol] 8.6 mg/dL Low 8.9 - 11.1 mg/dL Remisol Chem Chloride [Moles/Vol] 110 mmol/L Normal 101 - 111 mmol/L Remisol Chem CO2 [Moles/Vol] 26 mmol/L Normal 21 - 31 mmol/L Remis ol Chem Cobalamin (Vitamin B12) [Mass/Vol] 791 pg/mL Normal 50 - 1500 pg/mL Remisol Chem Creatinine [Mass/Vol] 0.9 mg/dL Normal 0.5 - 1.3 mg/dL Remisol Chem eGFR 86 mL/min/1.73 m2 Normal >=59mL/min/1.73 m2 Remisol Chem Folate [Mass/Vol] 10.1 ng/mL Normal >=6.7ng/mL Remisol Chem Glucose [Mass/Vol] 96 mg/dL Normal 55 - 199 mg/dL Re misol Chem Potassium [Moles/Vol] 4.0 mmol/L Normal 3.5 - 5.3 mmol/L Remisol Chem Sodium [Moles/Vol] 140 mmol/L Normal 135 - 145 mmol/L Remisol Chem Urea nitrogen [Mass/Vol] 5 mg/dL Normal 5 - 21 mg/dL Remisol Chem Urea nitrogen/Creatinine [Mass ratio] 6 mg/mg Low 10 - 20 Remisol Chem Consultation Noteon 05-14-19 Consultation Note Normal [facility] Comment on above: Result Comment: Elec tronically Signed By: Miguel JOHNSON, Jon Smith\.br\Date and Time Signed: 05/14/23 11:54 EDT Discharge Note-Nursingon Discharge Note-Nursing Invalid Interpretation Code [address] [place] [address]- \.br\ Wednesday 9:45 AM EDT \.br\ With: Nasim JOHNSON, Rajni Ballesteros\.br\ Where: [facility] Folateon 05-14-2023 Folate [Mass/Vol] 10.1 ng/mL Normal >=6.7 [facility] Comment on above: Performed By: #### 9 [id number], 47388408, 5695062, 8098500363, 1817227, 6243940356, 1183482, 6739757, 43836324 ####[facility] [address] [place] [address] HEMATOLOGYOrdered By: SYSTEM SYSTEM on 05-14-2023 Basophils/100 WBC (Bld) 1.4 % Normal 0.0 - 2.0 % Remisol Heme Basophils/Leukocyte s Auto (Bld) [Pure # fraction] 0.0 E9/L Normal 0.0 - 0.2 E9/L Remisol Heme Eosinophils (Bld) [#/Vol] 0.1 E9/L Normal 0.0 - 0.5 E9/L Remisol Heme Eosinophils/100 WBC (Bld) 6.1 % Normal 0.0 - 8.0 % Remisol Heme Erythrocyte distribution width (RBC) [Ratio] 14.4 % High 10.9 - 14.2 % Remisol Heme Hematocrit (Bld) [Volume fraction] 36.1 % Normal 34.0 - 46.0 % Remisol Heme Hemoglobin (Bld) [Mass/Vol] 12.2 g/dL Normal 12.0 - 16.0 gm/dL Remisol Heme Lymphocytes (Bld) [#/Vol] 1.1 E9/L Normal 1.0 - 4.0 E9/L Remisol Heme Lymphocytes/100 WBC (Bld) 51.0 % High 14.0 - 50.0 % Remisol Heme MCH (RBC) [Entitic mass] 30.3 pg Normal 27.0 - 34.0 pg Remisol Heme MCHC (RBC) [Mass/Vol] 33.9 g/dL Normal 31.4 - 36.0 gm/dL Remisol Heme MCV (RBC) [Entitic vol] 89.3 fL Normal 80.0 - 100.0 fL Remisol Heme Monocytes (Bld) [#/Vol] 0.1 E9/L Low 0.2 - 1.0 E9/L Remisol Heme Monocytes/100 WBC (Bld) 4.7 % Normal 4.0 - 14.0 % Remisol Heme Neutrophils (Bld) [#/Vol] 0.8 E9/L Low 2.0 - 7.5 E9/L Remisol Heme Neutrophils/100 WBC (Bld) 36.8 % Normal 36.0 - 75.0 % Remisol Heme Platelet mean volume (Bld) [Entitic vol] 9.3 fL Normal 6.4 - 10.8 fL Remisol Heme Platelets (Bld) [#/Vol] 167.0 E9/L Normal 150.0 - 500.0 E9/L Remisol Heme RBC (Bld) [#/Vol] 4.0 E12/L Low 4.3 - 5.9 E12/L Re misol Heme WBC corrected for nucl RBC Auto (Bld) [#/Vol] 2.1 E9/L Low 4.0 - 11.0 E9/L Remisol Heme Comment on above: Result Comment: Resu lts consistant with previous path review on 05/13/23, reviewed by [id number] Inpatient Clinical Summaryon 05-14-2023 Inpatient Clinical Summary Normal [facility] Inpatient Patient Summaryon 05-14-2023 Inpatient Patient Summary Normal [facility] Interdisciplinary Note - Taz e Manageron 05-14-2023 Interdisciplinary Note - Industrial Engineering Technologist Normal [facility] Comment on above: Result Comment: Elec tronically Signed By: Kera Diehl\.br\Date and Time Signed: 05/14/23 10:23 EDT IntraOperative Documentson 0 05-14-2023 IntraOperative Documents [id number] Normal [facility] Oncology Progress Noteon Oncology Progress Note Normal [facility] Progress Note-Physicianon Progress Note-Physician Normal [facility] Comment on above: Result Comment: Elec tronically Signed By: Moncho Trejo DO\.br\Date and Time Signed: 05/14/23 10:14 EDT Progress Note-Physician Normal [facility] Comment on above: Result Comment: Elec tronically Signed By: Kuldip Arcos Jr, DO\.br\Date and Time Signed: 05/14/23 07:41 EDT Progress Note-Physician Normal [facility] Comment on above: Result Comment: Elec tronically Signed By: Kuldip Arcos Jr, DO\.br\Date and Time Signed: 05/14/23 07:41 EDT Vit B12on 05-14-2023 Cobalamin (Vitamin B12) [Mass/Vol] 791 pg/mL Normal 50-1500 [facility] Comment on above: Performed By: #### 9 70785394, 40220377, 2158282, 9014691113, 6824041, 1818136905, 6025877, 9827490, 61789727 ####[facility] [address] [place] [address] eGFRon 05-14-2023 eGFR 86 mL/min/1.73 m2 Normal >=59 [facility] Comment on above: Order Comment: Order added by Discern Expert. Performed By: #### 9 98121923, 12963035, 8070562, 0697271861, 3634780, 0842461337, 3347337, 9128303, 66406308 ####[facility] [address] [place] [address] CBC w/ Auto Diffon 4 Basophils/100 WBC (Bld) 1.2 % Normal 0.0-2.0 [facility] Comment on above: Performed By: #### 1 2199421, 18813408, 1387785, 7344805 ####[address] [address] Basophils/Leukocyte s Auto (Bld) [Pure # fraction] 0.0 E9/L Normal 0.0-0.2 [facility] Comment on above: Performed By: #### 1 2758268, 07730932, 4645354, 6835059 ####[address] [address] Eosinophils (Bld) [#/Vol] 0.1 E9/L Normal 0.0-0.5 [facility] Comment on above: Performed By: #### 1 8249219, 55951240, 4556935, 4813959 ####[address] [address] Eosinophils/100 WBC (Bld) 4.7 % Normal 0.0-8.0 [facility] Comment on above: Performed By: #### 1 1865156, 68776674, 7796439, 4281176 ####[address] Erythrocyte distribution width (RBC) [Ratio] 14.3 % High 10.9-14.2 [facility] Comment on above: Performed By: #### 1 5278142, 20637081, 6660312, 5264839 ####[address] [address] Hematocrit (Bld) [Volume fraction] 37.1 % Normal 34.0-46.0 [facility] Comment on above: Performed By: #### 1 9555839, 32306532, 3369573, 5654146 ####[address] [address] Hemoglobin (Bld) [Mass/Vol] 12.5 g/dL Normal 12.0-16.0 [facility] Comment on above: Performed By: #### 1 8314334, 17026793, 4861985, 2292314 ####[address] [place] [address] Lymphocytes (Bld) [#/Vol] 1.1 E9/L Normal 1.0-4.0 [facility] Comment on above: Performed By: #### 1 4771861, 21732557, 4452961, 3070292 ####[address] [address] Lymphocytes/100 WBC (Bld) 53.2 % High 14.0-50.0 [facility] Comment on above: Performed By: #### 1 4534710, 67132824, 1025815, 3926697 ####[address] [address] MCH (RBC) [Entitic mass] 30.1 pg Normal 27.0-34.0 [facility] Comment on above: Performed By: #### 1 8373977, 90805779, 1489662, 9598068 ####[address] [address] MCHC (RBC) [Mass/Vol] 33.6 g/dL Normal 31.4-36.0 [facility] Comment on above: Performed By: #### 1 6072749, 65874060, 3121977, 2584254 ####[address] [address] MCV (RBC) [Entitic vol] 89.4 fL Normal 80.0-100.0 [facility] Comment on above: Performed By: #### 1 1678988, 30367568, 8465818, 4184525 ####[address] [address] Monocytes (Bld) [#/Vol] 0.1 E9/L Low 0.2-1.0 [facility] Comment on above: Performed By: #### 1 2858245, 73137906, 6283678, 8533575 ####[address] [address] Neutrophils (Bld) [#/Vol] 0.7 E9/L Low 2.0-7.5 [facility] Comment on above: Performed By: #### 1 2681081, 73357750, 4218748, 1699083 ####[address] [place] [address] Neutrophils/100 WBC (Bld) 34.6 % Low 36.0-75.0 [facility] Comment on above: Performed By: #### 1 2427729, 27096048, 3334013, 7992997 ####[address] [address] Platelet 168.0 E9/L Normal 150.0-500.0 [facility] Comment on above: Performed By: #### 1 1535078, 80669308, 8441629, 2301707 ####[address] [address] Platelet mean volume (Bld) [Entitic vol] 9.1 fL Normal 6.4-10.8 [facility] Comment on above: Performed By: #### 1 9375474, 47161953, 4224309, 9338833 ####[address] [address] RBC (Bld) [#/Vol] 4.1 E12/L Low 4.3-5.9 [facility] Comment on above: Performed By: #### 1 5387838, 46709138, 3908100, 0035561 ####[address] [address] WBC corrected for nucl RBC Auto (Bld) [#/Vol] 2.0 E9/L Abnormal 4.0-11.0 [facility] Comment on above: Result Comment: Resu lts called to JACKSON MARROQUIN by [place] and read back on 05/13/2023 07:20:49.Critical Result Verified by Repeat AnalysisSlide review performed Performed By: #### 1 4771853, 38753503, 1792846, 6804016 ####[facility] [address] [place] [address] [place] [address] CHEMISTRYOrdered By: SYSTEM SYSTEM on 05-13-2023 Albumin [Mass/Vol] 3.9 g/dL Normal 3.3 - 5.0 gm/dL R emisol Chem Albumin/Globulin [Mass ratio] 1.6 {ratio} Normal 1.1 - 2.2 Remisol Chem ALP [Catalytic activity/Vol] 49 [iU]/d Normal 21 - 98 Int._Unit/L Remisol Chem ALT No additional P-5'-P [Catalytic activity/Vol] 12 [iU]/d Normal 6 - 46 Int._Unit/L Remisol Chem Anion gap [Moles/Vol] 9 mmol/L Normal 6 - 16 mEq/L Remisol Chem AST [Catalytic activity/Vol] 23 [iU]/d Normal 5 - 43 Int._Unit/L Remisol Chem Bilirubin [Mass/Vol] 0.4 mg/dL Normal 0.0 - 1.1 mg/dL Remisol Chem Calcium [Mass/Vol] 8.4 mg/dL Low 8.9 - 11.1 mg/dL Remisol Chem Chloride [Moles/Vol] 111 mmol/L Normal 101 - 111 mmol/L Remisol Chem CO2 [Moles/Vol] 24 mmol/L Normal 21 - 31 mmol/L Remis ol Chem Creatinine [Mass/Vol] 0.7 mg/dL Normal 0.5 - 1.3 mg/dL Remisol Chem eGFR 116 mL/min/1.73 m2 Normal >=59mL/min/1.73 m 2 Remisol Chem Globulin (S) [Mass/Vol] 2.5 g/dL Normal 1.4 - 4.0 gm/dL Remisol Chem Glucose [Mass/Vol] 84 mg/dL Normal 55 - 199 mg/dL Re misol Chem Potassium [Moles/Vol] 3.7 mmol/L Normal 3.5 - 5.3 mmol/L Remisol Chem Protein [Mass/Vol] 6.4 g/dL Normal 6.0 - 7.8 gm/dL R emisol Chem Sodium [Moles/Vol] 140 mmol/L Normal 135 - 145 mmol/L Remisol Chem Urea nitrogen [Mass/Vol] 7 mg/dL Normal 5 - 21 mg/dL Remisol Chem Urea nitrogen/Creatinine [Mass ratio] 10 mg/mg Normal 10 - 20 Remisol Chem CMPon 05-13-2023 Albumin [Mass/Vol] 3.9 g/dL Normal 3.3-5.0 [facility] Comment on above: Performed By: #### 1 5822004, 96234352, 5740979, 8848816 ####[facility] [address] [place] [address] Albumin/Globulin (S) [Mass conc ratio] 1.6 Normal 1.1-2.2 [facility] Comment on above: Performed By: #### 1 0007335, 45964170, 5856907, 5823065 ####[facility] [address] [place] [address] ALP [Catalytic activity/Vol] 49 Int._Unit/L Normal 21-98 [facility] Comment on above: Performed By: #### 1 3264249, 65812108, 4707466, 0329538 ####[facility] [address] [place] [address] ALT No additional P-5'-P [Catalytic activity/Vol] 12 Int._Unit/L Normal 6-46 [facility] Comment on above: Performed By: #### 1 7377904, 32953741, 7882175, 9960817 ####[facility] [address] [place] [address] Anion gap [Moles/Vol] 9 mmol/L Normal 6-16 [facility] Comment on above: Performed By: #### 1 8942440, 79256295, 4008452, 1191953 ####[facility] [address] [place] [address] AST [Catalytic activity/Vol] 23 Int._Unit/L Normal 5-43 [facility] Comment on above: Performed By: #### 1 9071688, 72091429, 1121365, 2164812 ####[facility] [address] [place] [address] Bilirubin [Mass/Vol] 0.4 mg/dL Normal 0.0-1.1 [facility] Comment on above: Performed By: #### 1 5814860, 93722723, 2001315, 5102337 ####[facility] [address] [place] [address] Calcium [Mass/Vol] 8.4 mg/dL Low 8.9-11.1 [facility] Comment on above: Performed By: #### 1 3166963, 32508487, 9178658, 6764071 ####[facility] [address] [place] [address] Chloride [Moles/Vol] 111 mmol/L Normal 101-111 [facility] Comment on above: Performed By: #### 1 8655970, 40103153, 2780989, 6707505 ####[facility] [address] [place] [address] CO2 [Moles/Vol] 24 mmol/L Normal 21-31 [facility] Comment on above: Performed By: #### 1 2845683, 99969776, 8817760, 2779622 ####[facility] [address] [place] [address] Creatinine [Mass/Vol] 0.7 mg/dL Normal 0.5-1.3 [facility] Comment on above: Performed By: #### 1 5131873, 34913624, 1382569, 5427978 ####[facility] [address] [place] [address] Globulin (S) [Mass/Vol] 2.5 g/dL Normal 1.4-4.0 [facility] Comment on above: Performed By: #### 1 1991462, 24305163, 9233577, 5013364 ####[facility] [address] [place] [address] Glucose [Mass/Vol] 84 mg/dL Normal 55-199 [facility] Comment on above: Performed By: #### 1 2280991, 31036232, 2246200, 1225531 ####[facility] [address] [place] [address] Potassium [Moles/Vol] 3.7 mmol/L Normal 3.5-5.3 [facility] Comment on above: Performed By: #### 1 8329683, 98072198, 9388521, 4265826 ####[facility] [address] [place] [address] Protein [Mass/Vol] 6.4 g/dL Normal 6.0-7.8 [facility] Comment on above: Performed By: #### 1 7131573, 50446919, 7706694, 7976846 ####[facility] [address] [place] [address] Sodium [Moles/Vol] 140 mmol/L Normal 135-145 [facility] Comment on above: Performed By: #### 1 4989814, 81352842, 3725722, 9416049 ####[facility] [address] [place] [address] Urea nitrogen [Mass/Vol] 7 mg/dL Normal 5-21 [facility] Comment on above: Performed By: #### 1 4386215, 20579385, 0878099, 6857499 ####[facility] [address] [place] [address] Urea nitrogen/Creatinine [Mass ratio] 10 No Units Normal 10-20 [facility] Comment on above: Performed By: #### 1 9604887, 98711691, 9890181, 9140217 ####[facility] [address] [place] [address] Consenton 05-13-2023 Consent [id number] [id number] Normal [facility] Consultation Noteon 05-13-19 24 Consultation Note Normal [facility] Comment on above: Result Comment: Elec tronically Signed By: Miguel JOHNSON, Jon Smith\.br\Date and Time Signed: 05/13/23 09:32 EDT HEMATOLOGYOrdered By: SYSTEM SYSTEM on 05-13-2023 Basophils/100 WBC (Bld) 1.2 % Normal 0.0 - 2.0 % Remisol Heme Basophils/Leukocyte s Auto (Bld) [Pure # fraction] 0.0 E9/L Normal 0.0 - 0.2 E9/L Remisol Heme Eosinophils (Bld) [#/Vol] 0.1 E9/L Normal 0.0 - 0.5 E9/L Remisol Heme Eosinophils/100 WBC (Bld) 4.7 % Normal 0.0 - 8.0 % Remisol Heme Erythrocyte distribution width (RBC) [Ratio] 14.3 % High 10.9 - 14.2 % Remisol Heme Hematocrit (Bld) [Volume fraction] 37.1 % Normal 34.0 - 46.0 % Remisol Heme Hemoglobin (Bld) [Mass/Vol] 12.5 g/dL Normal 12.0 - 16.0 gm/dL Remisol Heme Lymphocytes (Bld) [#/Vol] 1.1 E9/L Normal 1.0 - 4.0 E9/L Remisol Heme Lymphocytes/100 WBC (Bld) 53.2 % High 14.0 - 50.0 % Remisol Heme MCH (RBC) [Entitic mass] 30.1 pg Normal 27.0 - 34.0 pg Remisol Heme MCHC (RBC) [Mass/Vol] 33.6 g/dL Normal 31.4 - 36.0 gm/dL Remisol Heme MCV (RBC) [Entitic vol] 89.4 fL Normal 80.0 - 100.0 fL Remisol Heme Monocytes (Bld) [#/Vol] 0.1 E9/L Low 0.2 - 1.0 E9/L Remisol Heme Monocytes/100 WBC (Bld) 6.3 % Normal 4.0 - 14.0 % Remisol Heme Neutrophils (Bld) [#/Vol] 0.7 E9/L Low 2.0 - 7.5 E9/L Remisol Heme Neutrophils/100 WBC (Bld) 34.6 % Low 36.0 - 75.0 % Remisol Heme Platelet 168.0 E9/L Normal 150.0 - 500.0 E9/L Remiso l Heme Platelet mean volume (Bld) [Entitic vol] 9.1 fL Normal 6.4 - 10.8 fL Remisol Heme RBC (Bld) [#/Vol] 4.1 E12/L Low 4.3 - 5.9 E12/L Re misol Heme WBC corrected for nucl RBC Auto (Bld) [#/Vol] 2.0 E9/L Invalid Interpretation Code 4.0 - 11.0 E9/L Remisol Heme Comment on above: Result Comment: Resu lts called to JACK[facility] MARROQUIN by AG and read back on 05/13/2023 07:20:49. Critical Result Verified by Repeat Analysis Slide review performed HEMATOLOGYOrdered By: Stephan Tavares on 05-13-2023 Path Review Anemia with no increase of reticulocytes. Leukocytopenia with reactive lymphocytes and monocytes.CPT 22074 Invalid Interpretation Code [facility] [place] HemeManSS Interdisciplinary Note - Taz e Manageron 05-13-2023 Interdisciplinary Note - Industrial Engineering Technologist Normal [facility] Comment on above: Result Comment: Elec tronically Signed By: Kera Diehl\.br\Date and Time Signed: 05/13/23 13:46 EDT Main OR Intraoperative Recor don 05-13-2023 Main OR Intraoperative Record Normal [facility] Path. Reviewon 05-13-2023 Path Review Anemia with no increase of reticulocytes. Leukocytopenia with reactive lymphocytes and monocytes. Invalid Interpretation Code [facility] Comment on above: Order Comment: Order added by Discern Expert Performed By: #### 1 5478876, 62816022, 9242264, 3881580 ####[facility] [address] [place] [address] Progress Note-Physicianon Progress Note-Physician Normal [facility] Comment on above: Result Comment: Elec tronically Signed By: Moncho Trejo DO\.br\Date and Time Signed: 05/13/23 10:43 EDT eGFRon 05-13-2023 eGFR 116 mL/min/1.73 m2 Normal >=59 [facility] Comment on above: Order Comment: Order added by Discern Expert. Performed By: #### 1 9002331, 94614083, 6325149, 4087374 ####[facility] [address] [place] [address] B hCG Qualon 05-12-2023 Beta HCG ( test) Ql Negative Normal [facility] Comment on above: Performed By: #### 2 810199, 86182795, 63208606, 1969994, 8307310, 83861019, 4699317, 71382940 ####[place] [place] [address] BMPOrdered By: SYSTEM SYSTEM on 05-12-2023 Anion gap [Moles/Vol] 11 mmol/L Normal 6-16 [facility] Comment on above: Performed By: #### 2 839828, 43890993, 14853104, 0474934, 2469003, 18009562, 1614801, 43081528 ####[address] [address] Calcium [Mass/Vol] 9.0 mg/dL Normal 8.9-11.1 Remiso l Chem Comment on above: Performed By: #### 2 273854, 00676283, 94999150, 2879340, 3059772, 01907571, 2356474, 06754544 ####[place] [address] [address] Chloride [Moles/Vol] 105 mmol/L Normal 101-111 [facility] Comment on above: Performed By: #### 2 635746, 26826139, 81056223, 8494842, 0441288, 06341508, 4010658, 34066295 ####[place] [address] [address] CO2 [Moles/Vol] 25 mmol/L Normal 21-31 [facility] C hem Comment on above: Performed By: #### 2 499571, 14265820, 67104243, 3056761, 6638732, 43159562, 3662494, 64450464 ####[address] [address] Creatinine [Mass/Vol] 1.0 mg/dL Normal 0.5-1.3 [facility] Comment on above: Performed By: #### 2 459443, 54420654, 29985315, 5087116, 8058245, 24343383, 3946276, 48952980 ####[facility] [address] [place] [address] Glucose [Mass/Vol] 94 mg/dL Normal 55-199 Remiso l Chem Comment on above: Performed By: #### 2 382945, 63511083, 88146250, 9060828, 4393089, 43399433, 8162734, 04697524 ####[facility] [address] [place] [address] Potassium [Moles/Vol] 3.9 mmol/L Normal 3.5-5.3 [facility] Comment on above: Performed By: #### 2 492854, 80852423, 00154001, 5147335, 4323528, 18079570, 5077274, 27160552 ####[facility] [address] [place] [address] Sodium [Moles/Vol] 137 mmol/L Normal 135-145 Remiso l Chem Comment on above: Performed By: #### 2 628569, 49243906, 35733222, 1780705, 6565231, 94735685, 7774180, 83049224 ####[facility] [address] [place] [address] Urea nitrogen [Mass/Vol] 10 mg/dL Normal 5-21 [facility] Comment on above: Performed By: #### 2 512149, 00991570, 07620115, 2345662, 0964226, 22026165, 8014630, 57745124 ####[facility] [address] [place] [address] BMPon 05-12-2023 Urea nitrogen/Creatinine [Mass ratio] 10 No Units Normal 10-20 [facility] Comment on above: Performed By: #### 2 301995, 88453213, 68364171, 2239406, 2165293, 63949276, 5132911, 01871881 ####[facility] [address] [place] [address] CBC w/ Auto DiffOrdered By: SYSTEM SYSTEM on 05-12-2023 Basophils/100 WBC (Bld) 0.9 % Normal 0.0-2.0 [facility]e Comment on above: Performed By: #### 2 687927, 65480643, 95110610, 8030471, 9790158, 89338830, 1758923, 77832797 ####[place] [address] [address] Basophils/Leukocyte s Auto (Bld) [Pure # fraction] 0.0 E9/L Normal 0.0-0.2 [facility] Comment on above: Performed By: #### 2 681617, 85882910, 04170713, 2207598, 5254132, 93740024, 5378947, 07096544 ####[place] [address] [address] Eosinophils (Bld) [#/Vol] 0.1 E9/L Normal 0.0-0.5 [facility] Comment on above: Performed By: #### 2 562713, 04981842, 67944687, 1435683, 6957330, 76984374, 6350393, 81102523 ####[place] [address] [address] Eosinophils/100 WBC (Bld) 2.3 % Normal 0.0-8.0 [facility] Comment on above: Performed By: #### 2 827988, 11439285, 57965161, 9977658, 3566125, 17568682, 6062226, 94208451 ####[place] [address] [address] Erythrocyte distribution width (RBC) [Ratio] 14.3 % High 10.9-14.2 [facility] Comment on above: Performed By: #### 2 146157, 38100320, 19839925, 9673847, 8793446, 72466075, 5242933, 28873650 ####[place] [address] [address] Hematocrit (Bld) [Volume fraction] 39.8 % Normal 34.0-46.0 [facility] Comment on above: Performed By: #### 2 544573, 82497557, 17275928, 5991472, 5252466, 90413408, 2376157, 62927421 ####[place] [address] [address] Hemoglobin (Bld) [Mass/Vol] 13.5 g/dL Normal 12.0-16.0 [facility] Comment on above: Performed By: #### 2 947741, 11426495, 68636070, 6106587, 6218667, 99658898, 1391175, 09573395 ####[place] [address] [address] Lymphocytes (Bld) [#/Vol] 1.3 E9/L Normal 1.0-4.0 [facility] Comment on above: Performed By: #### 2 703829, 37539120, 78133400, 8775728, 7190778, 34365213, 5936299, 37640642 ####[place] [address] [address] Lymphocytes/100 WBC (Bld) 46.0 % Normal 14.0-50.0 [facility] Comment on above: Performed By: #### 2 285112, 57157015, 58633096, 7792442, 6679130, 94606142, 0022545, 27173771 ####[place] [address] [address] MCH (RBC) [Entitic mass] 30.2 pg Normal 27.0-34.0 [facility] Comment on above: Performed By: #### 2 944681, 26683262, 71543837, 6900175, 8325059, 89491231, 2555049, 21805067 ####[place] [address] [address] MCHC (RBC) [Mass/Vol] 34.0 g/dL Normal 31.4-36.0 [facility] Comment on above: Performed By: #### 2 660493, 75768704, 01405016, 2786057, 3916643, 21512578, 2030048, 60454153 ####[place] [address] [address] MCV (RBC) [Entitic vol] 88.8 fL Normal 80.0-100.0 [facility] Comment on above: Performed By: #### 2 692477, 48250103, 50401057, 7311304, 8037565, 78624473, 3789477, 55419970 ####[place] [address] [address] Monocytes (Bld) [#/Vol] 0.2 E9/L Normal 0.2-1.0 [facility] Comment on above: Performed By: #### 2 781529, 62680549, 55942930, 3216788, 2513716, 71235221, 9443933, 63036536 ####[place] [address] [address] Neutrophils (Bld) [#/Vol] 1.2 E9/L Low 2.0-7.5 [facility] Comment on above: Performed By: #### 2 601375, 66001555, 43219745, 2242698, 5236615, 28800535, 8876295, 65516924 ####[place] [address] [address] Neutrophils/100 WBC (Bld) 42.5 % Normal 36.0-75.0 [facility] Comment on above: Performed By: #### 2 804226, 47270101, 39506505, 2846480, 0033391, 64955396, 6706864, 93088775 ####[place] [address] [address] Platelet mean volume (Bld) [Entitic vol] 9.0 fL Normal 6.4-10.8 [facility] Comment on above: Performed By: #### 2 555860, 06205444, 04027610, 8662480, 5978858, 90374672, 9000224, 80108468 ####[place] [facility] [address] [place] [address] Platelets (Bld) [#/Vol] 179.0 E9/L Normal 150.0-500.0 [facility] Comment on above: Performed By: #### 2 577807, 03744561, 38102065, 2217848, 4763934, 01363765, 8110966, 87462636 ####[place] [facility] [address] [place] [address] RBC (Bld) [#/Vol] 4.5 E12/L Normal 4.3-5.9 [facility] Comment on above: Performed By: #### 2 148958, 23244514, 14696021, 5936051, 8341642, 18021159, 8507654, 72343476 ####[place] [facility] [address] [place] [address] WBC corrected for nucl RBC Auto (Bld) [#/Vol] 2.8 E9/L Low 4.0-11.0 [facility] Comment on above: Performed By: #### 2 915626, 08785892, 00441895, 7973250, 5865758, 38514315, 2915843, 60993666 ####[place] [facility] [address] [place] [address] CHEMISTRYOrdered By: SYSTEM SYSTEM on 05-12-2023 Albumin/Globulin [Mass ratio] 1.9 {ratio} Normal 1.1 - 2.2 [facility] ALP [Catalytic activity/Vol] 58 [iU]/d Normal 21 - 98 Int._Unit/L [facility] Chem ALT No additional P-5'-P [Catalytic activity/Vol] 14 [iU]/d Normal 6 - 46 Int._Unit/L [facility] AST [Catalytic activity/Vol] 26 [iU]/d Normal 5 - 43 Int._Unit/L [facility] Troponin pg/mL Low 10.10 - 27.10 pg/mL Remis ol Chem Comment on above: Interpretive Data: T he 95% CI (Confidence Interval) PPV (Positive Predictive Value) for myocardial infarction in females is 38 pg/mL, in males 51 pg/mL. The results should be used in conjunction with clinical conditions of myocardial infarction. (Access High Sensitivity Troponin I Instructions For Use, Alan Choteau, September 2017) Urea nitrogen/Creatinine [Mass ratio] 10 mg/mg Normal 10 - 20 [facility] COAGULATIONOrdered By: Shannon Chappell on 05-12-2023 aPTT Coag (PPP) [Time] 34.7 s Normal 25.1 - 36.5 second(s) [facility] [place] [facility] Comment on above: Interpretive Data: Jonh marsmeter 15 days - 4 weeks 1 - 5 months 6 - 11 months 1 - 5 years 6 - 10 years 11 - 17 years PTT Mean: 35.4 (27.6-45.6) Mean: 33.5 (24.8-40.7) Mean: 32.4 (25.1-40.7) Mean: 31.6 (24.0-39.2) Mean: 31.6 (26.9-38.7) Mean: 31.0 (24.6-38.4) Pediatric Reference ranges were obtained from a study by christelle Thompson. prepared from 1437 samples obtained at 7 different centers using the same coagulation reagent and instrumentation as [facility] [place]. Currently there are no coagulation studies available worldwide for children to 14 days, and no normal ranges. Heparin therapeutic range (represented by Anti-Factor Xa activity of 0.2 - 0.4 U/mL) corresponds to PTT of 56.6 - 109.0 sec. PT Coag (PPP) [Time] 13.1 s High 9.4 - 12.5 second(s) [facility] [place] [facility] Comment on above: Interpretive Data: 1 5 days - 4 weeks 1 - 5 months 6 -11 months 1-5 years 6-10 years 11 -17 years Mean: 11.2 (9.5-12.6) Mean: 11.0 (9.7-12.8) Mean: 11.0 (9.8-13.0) Mean: 11.3 (9.9-13.4) Mean: 11.7 (10.0-14.6) Mean: 11.8 (10.0 - 14.1) Pediatric Reference ranges were obtained from a study by elías Thompson prepared from 1437 samples obtained at 7 different centers using the same coagulation reagent and instrumentation as [facility] [place]. Currently there are no coagulation studies available worldwide for children to 14 days, and no normal ranges. Consent for Treatmenton 04-16 Consent for Treatment [id number]#1.00TIFF Normal [facility] Consultation Noteon 05-12-19 Consultation Note Normal [facility] Comment on above: Result Comment: Elec tronically Signed By: Jon Rivera MD\.br\Date and Time Signed: 05/12/23 15:42 EDT ED Clinical Summaryon 2023 ED Clinical Summary Normal Kirsty ahumada [facility] ED Note-Physicianon 05-12-19 ED Note-Physician Normal [facility] Comment on above: Result Comment: Elec tronically Signed By: Mauricio López PA-C\.br\Date and Time Signed: 05/12/23 12:06 EDT\.br\Electronically Co-Signed By: Mateusz Garcia DO\.br\Date and Time Co-Signed: 05/12/23 12:48 EDT ED Patient Education Noteon 05-12-2023 ED Patient Education Note Normal [facility] ED Patient Summaryon 024 ED Patient Summary Normal [facility] Endoscopic Procedure Report - Otheron 05-12-2023 Endoscopic Procedure Report - Other Normal [facility] Comment on above: Result Comment: Elec tronically Signed By: Jon Rivera MD\.br\Date and Time Signed: 05/12/23 15:48 EDT Other Comment: Ramya jordan Attachment - attachment storage system not supported [id number] Can be viewed in source systemMissing Attachment - attachment storage system not supported [id number] Can be viewed in source systemMissing Attachment - attachment storage system not supported [id number] Can be viewed in source systemMissing Attachment - attachment storage system not supported [id number] Can be viewed in source systemMissing Attachment - attachment storage system not supported [id number] Can be viewed in source systemMissing Attachment - attachment storage system not supported [id number] Can be viewed in source systemMissing Attachment - attachment storage system not supported [id number] Can be viewed in source systemMissing Attachment - attachment storage system not supported [id number] Can be viewed in source systemMissing Attachment - attachment storage system not supported [id number] Can be viewed in source system HEMATOLOGYOrdered By: SYSTEM SYSTEM on 05-12-2023 Monocytes/100 WBC (Bld) 8.3 % Normal 4.0 - 14.0 % [facility] Heme Hep Func PanelOrdered By: SY STEM SYSTEM on 05-12-2023 Albumin [Mass/Vol] 4.3 g/dL Normal 3.3-5.0 Remiso l Chem Comment on above: Performed By: #### 2 740004, 39900543, 64634311, 8666065, 2023226, 98170463, 6298037, 83475245 ####[address] [place] [address] Bilirubin [Mass/Vol] 0.4 mg/dL Normal 0.0-1.1 [facility] Comment on above: Performed By: #### 2 685347, 42418621, 01877355, 9306665, 6507236, 54687664, 1097226, 08897661 ####[address] [place] [address] Bilirubin.direct [Mass/Vol] 0.1 mg/dL Normal 0.0-0.4 [facility] Comment on above: Performed By: #### 2 882268, 21137756, 36649032, 4815824, 7628846, 60249125, 3552898, 05930691 ####[address] [place] [address] Bilirubin.indirect [Mass or moles/Vol] 0.3 mg/dL Normal 0.1-0.9 [facility] Comment on above: Performed By: #### 2 590312, 08426071, 51516689, 5762957, 9107398, 18005189, 1996900, 03493159 ####[facility] [address] [place] [address] Globulin (S) [Mass/Vol] 2.3 g/dL Normal 1.4-4.0 [facility] Comment on above: Performed By: #### 2 604358, 85541012, 97848627, 9792712, 5649869, 63030923, 2869509, 37456716 ####[facility] [address] [place] [address] Protein [Mass/Vol] 6.6 g/dL Normal 6.0-7.8 Remiso l Chem Comment on above: Performed By: #### 2 860546, 61897803, 00954639, 3468605, 6591994, 73241047, 4695578, 12693497 ####[facility] [address] [place] [address] Hep Func Panelon 05-12-2023 Albumin/Globulin (S) [Mass conc ratio] 1.9 Normal 1.1-2.2 [facility] Comment on above: Performed By: #### 2 579813, 60854882, 80548848, 9803183, 0223078, 12104594, 9067549, 58408100 ####[facility] [address] [place] [address] ALP [Catalytic activity/Vol] 58 Int._Unit/L Normal 21-98 [facility] Comment on above: Performed By: #### 2 456883, 59865506, 88161573, 1915278, 5863627, 32623119, 0187751, 06700159 ####[address] [address] ALT No additional P-5'-P [Catalytic activity/Vol] 14 Int._Unit/L Normal 6-46 [facility] Comment on above: Performed By: #### 2 692568, 92508572, 11996012, 4245930, 7041766, 72789129, 3945895, 24445651 ####[facility] [address] [place] [address] AST [Catalytic activity/Vol] 26 Int._Unit/L Normal 5-43 [facility] Comment on above: Performed By: #### 2 049580, 87940941, 20528609, 6538600, 4948667, 03735380, 7759389, 88581829 ####[facility] [address] [place] [address] Interdisciplinary Note - Taz e Manageron 05-12-2023 Interdisciplinary Note - Industrial Engineering Technologist Normal [facility] Comment on above: Result Comment: Elec tronically Signed By: Kera Diehl\.br\Date and Time Signed: 05/12/23 15:40 EDT Lipase LevelOrdered By: AgentPair SYSTEM on 05-12-2023 Lipase [Catalytic activity/Vol] 35 U/L Normal 13-58 [facility] Comment on above: Performed By: #### 2 097960, 34299229, 26408555, 9150007, 4272675, 80173365, 5788889, 13378953 ####[facility] [address] [place] [address] Main OR PACU I Recordon 04-16 Main OR PACU I Record Normal [facility] Main OR Preoperative Recordo n 05-12-2023 Main OR Preoperative Record Normal [facility] Monitor Recordon 05-12-2023 Monitor Record [id number]#1.00TIFF Normal [facility] Monitor Record [id number]#1.00TIFF Normal [facility] Monitor Record [id number]#1.00TIFF Normal [facility] PT & PTTon 05-12-2023 aPTT Coag (PPP) [Time] 34.7 second(s) Normal 25.1-36.5 [facility] Comment on above: Result Comment: Para meter 15 days - 4 weeks 1 - 5 months 6 - 11 months 1 - 5 years 6 - 10 years 11 - 17 years PTT Mean: 35.4 (27.6-45.6) Mean: 33.5 (24.8-40.7) Mean: 32.4 (25.1-40.7) Mean: 31.6 (24.0-39.2) Mean: 31.6 (26.9-38.7) Mean: 31.0 (24.6-38.4) Pediatric Reference ranges were obtained from a study by nara Thompson al. prepared from 1437 samples obtained at 7 different centers using the same coagulation reagent and instrumentation as [facility] [place]. Currently there are no coagulation studies available worldwide for children to 14 days, and no normal ranges. Heparin therapeutic range (represented by Anti-Factor Xa activity of 0.2 - 0.4 U/mL) corresponds to PTT of 56.6 - 109.0 sec. Performed By: #### 2 938266, 29453697, 28149751, 9532361, 0222018, 28284218, 0776520, 03110357 ####[facility] [address] [place] [address] PT Coag (PPP) [Time] 13.1 second(s) High 9.4-12.5 [facility] Comment on above: Result Comment: 15 d ays - 4 weeks 1 - 5 months 6 -11 months 1- 5 years 6-10 years 11 -17 years Mean: 11.2 (9.5-12.6) Mean: 11.0 (9.7-12.8) Mean: 11.0 (9.8-13.0) Mean: 11.3 (9.9-13.4) Mean: 11.7 (10.0-14.6) Mean: 11.8 (10.0 - 14.1) Pediatric Reference ranges were obtained from a study by nara Thompson al. prepared from 1437 samples obtained at 7 different centers using the same coagulation reagent and instrumentation as [facility] [place]. Currently there are no coagulation studies available worldwide for children to 14 days, and no normal ranges. Performed By: #### 2 450953, 36960188, 15857427, 9058049, 7659616, 35929200, 2741542, 94146649 ####[facility] [address] [place] [address] PT & PTTOrdered By: Shannon cutler on 05-12-2023 INR Coag (PPP) [Relative time] 1.17 {INR} Invalid Interpretation Code [facility] [place] [facility] Comment on above: Interpretive Data: I NR results are specifically intended to assess patients stabilized on long-term Anticoagulation therapy suggested INR s Less Intensive Anticoagulation 2.0 3.0 Conventional Range 3.0 4.5 Result Comment: INR results are specifically intended to assess patients stabilized on long-term Anticoagulation therapy suggested INR?s ?Less Intensive Anticoagulation? 2.0 ? 3.0Conventional Range 3.0 ? 4.5 Performed By: #### 2 418581, 88713322, 15642475, 9506241, 2002185, 13140768, 4911118, 02953921 ####[facility] [address] [place] [address] Provider Letteron 05-12-2023 Provider Letter Normal [facility] SEROLOGYOrdered By: Shannon cutler on 05-12-2023 Beta HCG ( test) Ql Negative (05/12/23 10:00 AM) Normal [facility] [place] Man Sero Troponin 0 Hr.on 05-12-2023 Troponin I.cardiac [Mass/Vol] ng/mL Low 10.10-27.10 [facility] Comment on above: Result Comment: The 95% CI (Confidence Interval) PPV (Positive Predictive Value) for myocardial infarction in females is 38 pg/mL, in males 51 pg/mL. The results should be used in conjunction with clinical conditions of myocardial infarction.(Access High Sensitivity Troponin I Instructions For Use, Alan Gordy, September 2017) Performed By: #### 2 346222, 38565856, 41486017, 5044944, 7316239, 87658002, 7005991, 59900993 ####[facility] [address] [place] [address] eGFROrdered By: SYSTEM [employer] on 05-12-2023 eGFR 76 mL/min/1.73 m2 Normal >=59 [facility] Comment on above: Order Comment: Order added by Discern Expert. Performed By: #### 2 402761, 16637446, 64518544, 4770506, 6520452, 31878871, 5235306, 57189757 ####[facility] [address] [place] [address] CBC w/ Auto Diffon 4 Basophils/100 WBC (Bld) 0.7 % Normal 0.0-2.0 [facility] Comment on above: Performed By: #### 2 855912, 2433753, 4313304, 3105205, 83541391, 9274935 ####[address] [address] Basophils/Leukocyte s Auto (Bld) [Pure # fraction] 0.0 E9/L Normal 0.0-0.2 [facility] Comment on above: Performed By: #### 2 397611, 5037952, 0467132, 0177141, 43725445, 5035518 ####[address] [address] Eosinophils (Bld) [#/Vol] 0.0 E9/L Normal 0.0-0.5 [facility] Comment on above: Performed By: #### 2 510610, 1911981, 5242782, 3316873, 35840025, 4545309 ####[address] [address] Eosinophils/100 WBC (Bld) 1.5 % Normal 0.0-8.0 [facility] Comment on above: Performed By: #### 2 624539, 8295646, 5568821, 5745612, 37849374, 2750758 ####[address] [address] Erythrocyte distribution width (RBC) [Ratio] 14.6 % High 10.9-14.2 [facility] Comment on above: Performed By: #### 2 951996, 4476753, 1392431, 1799594, 74544653, 9472790 ####[address] [address] Hematocrit (Bld) [Volume fraction] 38.7 % Normal 34.0-46.0 [facility] Comment on above: Performed By: #### 2 542370, 0888728, 2953491, 1541309, 79688891, 9968768 ####[facility] [address] [place] [address] Hemoglobin (Bld) [Mass/Vol] 13.2 g/dL Normal 12.0-16.0 [facility] Comment on above: Performed By: #### 2 685269, 4803219, 7773131, 5144521, 78336394, 0980675 ####[address] [address] Lymphocytes (Bld) [#/Vol] 1.3 E9/L Normal 1.0-4.0 [facility] Comment on above: Performed By: #### 2 544450, 1792774, 0368516, 7786175, 49445724, 6174128 ####[address] [address] Lymphocytes/100 WBC (Bld) 48.6 % Normal 14.0-50.0 [facility] Comment on above: Performed By: #### 2 657490, 2722971, 8249219, 3828853, 88321110, 8350382 ####[address] [address] MCH (RBC) [Entitic mass] 30.3 pg Normal 27.0-34.0 [facility] Comment on above: Performed By: #### 2 644746, 0943411, 4919320, 7295912, 64550641, 7688430 ####[facility] [address] [place] [address] MCHC (RBC) [Mass/Vol] 34.2 g/dL Normal 31.4-36.0 [facility] Comment on above: Performed By: #### 2 025972, 6991631, 8828675, 6938827, 52874720, 5150499 ####[address] [place] [address] MCV (RBC) [Entitic vol] 88.6 fL Normal 80.0-100.0 [facility] Comment on above: Performed By: #### 2 818634, 2033120, 5270984, 9311553, 84473916, 9315373 ####[address] [address] Monocytes (Bld) [#/Vol] 0.2 E9/L Normal 0.2-1.0 [facility] Comment on above: Performed By: #### 2 430397, 6581940, 2749606, 4821154, 81100787, 9851156 ####[address] [address] Neutrophils (Bld) [#/Vol] 1.1 E9/L Low 2.0-7.5 [facility] Comment on above: Performed By: #### 2 773157, 8889490, 2638469, 6949423, 74083788, 1598894 ####[address] [address] Neutrophils/100 WBC (Bld) 40.2 % Normal 36.0-75.0 [facility] Comment on above: Performed By: #### 2 037231, 3152930, 5941089, 5523224, 47535906, 5717527 ####[address] [address] Platelet mean volume (Bld) [Entitic vol] 9.2 fL Normal 6.4-10.8 [facility] Comment on above: Performed By: #### 2 729302, 4508223, 6538695, 6269333, 52210274, 1964009 ####[address] [place] [address] Platelets (Bld) [#/Vol] 195.0 E9/L Normal 150.0-500.0 [facility] Comment on above: Performed By: #### 2 474260, 2197811, 8876755, 7677238, 50940395, 4861535 ####[address] [address] RBC (Bld) [#/Vol] 4.4 E12/L Normal 4.3-5.9 [facility] Comment on above: Performed By: #### 2 767619, 5946242, 2099677, 2491444, 21286226, 1681343 ####[facility] [address] [place] [address] WBC corrected for nucl RBC Auto (Bld) [#/Vol] 2.7 E9/L Low 4.0-11.0 [facility] Comment on above: Performed By: #### 2 575654, 0010987, 3796654, 0775343, 57884795, 4774468 ####[facility] [address] [place] [address] CHEMISTRYOrdered By: SYSTEM SYSTEM on 05-11-2023 Amphetamines Screen method >1000 ng/mL Ql (U) NEGATIVE 9 (05/11/23 12:41 PM) Normal NEGATIVE [facility] Comment on above: Interpretive Data: N egative Cutoff: <1000 ng/mL Barbiturates Screen Ql (U) NEGATIVE 10 (05/11/23 12:41 PM) Normal NEGATIVE [facility] Comment on above: Interpretive Data: N egative Cutoff: <200 ng/mL Benzodiazepines Ql (U) NEGATIVE 1 (05/11/23 12:41 PM) Normal NEGATIVE [facility] Comment on above: Interpretive Data: N egative Cutoff: <200 ng/mL Cannabinoids Screen Ql (U) POSITIVE 7, 8 *ABN* (05/11/23 12:41 PM) Invalid Interpretation Code NEGATIVE [facility] Comment on above: Result Comment: No C onfirmation Requested by Physician Result Verified by Repeat Analysis Unconfirmed by an Alternate Method called to Maribel Ortega by at [phone] Interpretive Data: N egative Cutoff: <50 ng/mL Cocaine Ql (U) NEGATIVE 2 (05/11/23 12:41 PM) Normal NEGATIVE [facility] Comment on above: Interpretive Data: N egative Cutoff: <300 ng/mL Opiates Screen Ql (U) POSITIVE 4, 5 *ABN* (05/11/23 12:41 PM) Invalid Interpretation Code NEGATIVE [facility] Comment on above: Result Comment: No C onfirmation Requested by Physician Result Verified by Repeat Analysis Unconfirmed by an Alternate Method called to Maribel Ortega by [id number] Interpretive Data: N egative Cutoff: <300 ng/mL Phencyclidine Screen method >25 ng/mL Ql (U) NEGATIVE 6 (05/11/23 12:41 PM) Normal NEGATIVE [facility] Comment on above: Interpretive Data: N egative Cutoff: <25 ng/mL These drug screen results are to be used for medical (i.e., treatment) purposes only. Unconfirmed drug screening results must not be used for non-medical purposes (e.g., employment testing, legal testing). Albumin [Mass/Vol] 4.6 g/dL Normal 3.3 - 5.0 gm/dL R emisol Chem Albumin/Globulin [Mass ratio] 1.8 {ratio} Normal 1.1 - 2.2 [facility] ALP [Catalytic activity/Vol] 60 [iU]/d Normal 21 - 98 Int._Unit/L [facility] ALT No additional P-5'-P [Catalytic activity/Vol] 14 [iU]/d Normal 6 - 46 Int._Unit/L [facility] Anion gap [Moles/Vol] 15 mmol/L Normal 6 - 16 mEq/L [facility] AST [Catalytic activity/Vol] 25 [iU]/d Normal 5 - 43 Int._Unit/L [facility] Bilirubin [Mass/Vol] 0.5 mg/dL Normal 0.0 - 1.1 mg/dL [facility] Calcium [Mass/Vol] 9.4 mg/dL Normal 8.9 - 11.1 mg/dL [facility] Chloride [Moles/Vol] 104 mmol/L Normal 101 - 111 mmol/L [facility] Chem CO2 [Moles/Vol] 23 mmol/L Normal 21 - 31 mmol/L Remis ol Chem Creatinine [Mass/Vol] 0.8 mg/dL Normal 0.5 - 1.3 mg/dL [facility] Chem eGFR 99 mL/min/1.73 m2 Normal >=59mL/min/1.73 m2 [facility] Globulin (S) [Mass/Vol] 2.5 g/dL Normal 1.4 - 4.0 gm/dL [facility] Glucose [Mass/Vol] 80 mg/dL Normal 55 - 199 mg/dL Re misol Chem Lactic Acid Lvl 0.6 mmol/L Normal 0.5 - 2.2 mmol/L Rem isol Chem Lipase [Catalytic activity/Vol] 34 U/L Normal 13 - 58 unit/L [facility] Magnesium [Mass/Vol] 2.1 mg/dL Normal 1.3 - 2.4 mg/dL [facility] Potassium [Moles/Vol] 3.6 mmol/L Normal 3.5 - 5.3 mmol/L [facility] Chem Protein [Mass/Vol] 7.1 g/dL Normal 6.0 - 7.8 gm/dL R emisol Chem Sodium [Moles/Vol] 138 mmol/L Normal 135 - 145 mmol/L [facility] Chem Urea nitrogen [Mass/Vol] 9 mg/dL Normal 5 - 21 mg/dL [facility] Chem Urea nitrogen/Creatinine [Mass ratio] 11 mg/mg Normal 10 - 20 [facility] CMPon 05-11-2023 Albumin [Mass/Vol] 4.6 g/dL Normal 3.3-5.0 [facility] Comment on above: Performed By: #### 2 113887, 8803697, 4793054, 6857437, 04592664, 8614871 ####[facility] [address] [place] [address] Albumin/Globulin (S) [Mass conc ratio] 1.8 Normal 1.1-2.2 [facility] Comment on above: Performed By: #### 2 388085, 7999167, 2225298, 0410764, 71156700, 7105598 ####[facility] [address] [place] [address] ALP [Catalytic activity/Vol] 60 Int._Unit/L Normal 21-98 [facility] Comment on above: Performed By: #### 2 948884, 3779070, 5502748, 0491133, 55121345, 7114315 ####[facility] [address] [place] [address] ALT No additional P-5'-P [Catalytic activity/Vol] 14 Int._Unit/L Normal 6-46 [facility] Comment on above: Performed By: #### 2 763073, 0670794, 7861064, 6983223, 14204719, 8993319 ####[facility] [address] [place] [address] Anion gap [Moles/Vol] 15 mmol/L Normal 6-16 [facility] Comment on above: Performed By: #### 2 870915, 8267520, 5780179, 7167360, 71434144, 4558302 ####[facility] [address] [place] [address] AST [Catalytic activity/Vol] 25 Int._Unit/L Normal 5-43 [facility] Comment on above: Performed By: #### 2 369650, 1285887, 8497157, 7011194, 49181557, 3231692 ####[facility] [address] [place] [address] Bilirubin [Mass/Vol] 0.5 mg/dL Normal 0.0-1.1 [facility] Comment on above: Performed By: #### 2 358800, 5966635, 3841237, 4558040, 49349531, 2207694 ####[facility] [address] [place] [address] Calcium [Mass/Vol] 9.4 mg/dL Normal 8.9-11.1 [facility] Comment on above: Performed By: #### 2 572360, 5672059, 0581120, 2741503, 49588624, 2726280 ####[facility] [address] [place] [address] Chloride [Moles/Vol] 104 mmol/L Normal 101-111 [facility] Comment on above: Performed By: #### 2 351190, 7931851, 8797736, 6582425, 42204479, 7466889 ####[facility] [address] [place] [address] CO2 [Moles/Vol] 23 mmol/L Normal 21-31 [facility] Comment on above: Performed By: #### 2 046625, 1929668, 4867992, 4459517, 87044609, 4611658 ####[facility] [address] [place] [address] Creatinine [Mass/Vol] 0.8 mg/dL Normal 0.5-1.3 [facility] Comment on above: Performed By: #### 2 922463, 9065173, 4900620, 2949789, 34933292, 0128469 ####[facility] [address] [place] [address] Globulin (S) [Mass/Vol] 2.5 g/dL Normal 1.4-4.0 [facility] Comment on above: Performed By: #### 2 829214, 7533183, 8669212, 1008468, 88670409, 0560761 ####[facility] [address] [place] [address] Glucose [Mass/Vol] 80 mg/dL Normal 55-199 [facility] Comment on above: Performed By: #### 2 497023, 2256336, 7217932, 8314205, 47196856, 3958381 ####[facility] [address] [place] [address] Potassium [Moles/Vol] 3.6 mmol/L Normal 3.5-5.3 [facility] Comment on above: Performed By: #### 2 985828, 6964465, 9713943, 3948148, 14654049, 4341935 ####[facility] [address] [place] [address] Protein [Mass/Vol] 7.1 g/dL Normal 6.0-7.8 [facility] Comment on above: Performed By: #### 2 650525, 0351384, 2309751, 0460540, 27137465, 4460504 ####[facility] [address] [place] [address] Sodium [Moles/Vol] 138 mmol/L Normal 135-145 [facility] Comment on above: Performed By: #### 2 481146, 7658804, 4214168, 4756908, 73871138, 3301538 ####[facility] [address] [place] [address] Urea nitrogen [Mass/Vol] 9 mg/dL Normal 5- [facility] Comment on above: Performed By: #### 2 444447, 1341338, 7062835, 2345289, 16465255, 5520875 ####[facility] [address] [place] [address] Urea nitrogen/Creatinine [Mass ratio] 11 No Units Normal - [facility] Comment on above: Performed By: #### 2 471970, 0750208, 8713584, 1516089, 96631935, 3157342 ####[facility] [address] [place] [address] CT Abdomen/Pelvis w/o Contra ston 05-11-2023 CT Abdomen/Pelvis w/o Contrast Normal [facility] Consent for Treatmenton 04-16 Consent for Treatment [id number] 37#1.00TIFF Normal [facility] Discharge Instructionson Discharge Instructions [id number] 81#1.00TIFF Normal [facility] ED Clinical Summaryon 2023 ED Clinical Summary Normal [facility] ED Note-Physicianon 05-11-19 ED Note-Physician Normal [facility] Comment on above: Result Comment: Elec tronically Signed By: Tiffani Cunningham PA-C.br\Date and Time Signed: 05/11/23 17:06 EDT\.br\Electronically Co-Signed By: Mateusz Garcia DO.br\Date and Time Co-Signed: 05/11/23 20:41 EDT ED Patient Education Noteon 05-11-2023 ED Patient Education Note Normal [facility] ED Patient Summaryon 024 ED Patient Summary Normal [facility] HEMATOLOGYOrdered By: SYSTEM SYSTEM on 05-11-2023 Basophils/100 WBC (Bld) 0.7 % Normal 0.0 - 2.0 % [facility] Basophils/Leukocyte s Auto (Bld) [Pure # fraction] 0.0 E9/L Normal 0.0 - 0.2 E9/L [facility] Eosinophils (Bld) [#/Vol] 0.0 E9/L Normal 0.0 - 0.5 E9/L [facility] Eosinophils/100 WBC (Bld) 1.5 % Normal 0.0 - 8.0 % [facility] Erythrocyte distribution width (RBC) [Ratio] 14.6 % High 10.9 - 14.2 % [facility] Hematocrit (Bld) [Volume fraction] 38.7 % Normal 34.0 - 46.0 % [facility] Hemoglobin (Bld) [Mass/Vol] 13.2 g/dL Normal 12.0 - 16.0 gm/dL [facility] Lymphocytes (Bld) [#/Vol] 1.3 E9/L Normal 1.0 - 4.0 E9/L [facility] Lymphocytes/100 WBC (Bld) 48.6 % Normal 14.0 - 50.0 % [facility] MCH (RBC) [Entitic mass] 30.3 pg Normal 27.0 - 34.0 pg [facility] MCHC (RBC) [Mass/Vol] 34.2 g/dL Normal 31.4 - 36.0 gm/dL [facility] MCV (RBC) [Entitic vol] 88.6 fL Normal 80.0 - 100.0 fL [facility] Monocytes (Bld) [#/Vol] 0.2 E9/L Normal 0.2 - 1.0 E9/L [facility] Monocytes/100 WBC (Bld) 9.0 % Normal 4.0 - 14.0 % [facility] Neutrophils (Bld) [#/Vol] 1.1 E9/L Low 2.0 - 7.5 E9/L [facility] Neutrophils/100 WBC (Bld) 40.2 % Normal 36.0 - 75.0 % [facility] Platelet mean volume (Bld) [Entitic vol] 9.2 fL Normal 6.4 - 10.8 fL [facility] Platelets (Bld) [#/Vol] 195.0 E9/L Normal 150.0 - 500.0 E9/L [facility] RBC (Bld) [#/Vol] 4.4 E12/L Normal 4.3 - 5.9 E12/L Re misol Heme WBC corrected for nucl RBC Auto (Bld) [#/Vol] 2.7 E9/L Low 4.0 - 11.0 E9/L [facility] Lactic Acidon 05-11-2023 Lactic Acid Lvl 0.6 mmol/L Normal 0.5-2.2 [facility] Comment on above: Performed By: #### 2 588361, 1761880, 6289513, 5881953, 75430326, 0304150 ####[facility] [address] [place] [address] Lipase Levelon 05-11-2023 Lipase [Catalytic activity/Vol] 34 U/L Normal 13-58 [facility] Comment on above: Performed By: #### 2 701844, 7868053, 2777542, 4375556, 42818101, 9258176 ####[facility] [address] [place] [address] Magnesiumon 05-11-2023 Magnesium [Mass/Vol] 2.1 mg/dL Normal 1.3-2.4 [facility] Comment on above: Performed By: #### 2 697655, 5264313, 5225938, 4546991, 04186239, 7400338 ####[facility] [address] [place] [address] SEROLOGYOrdered By: Olga Meng on 05-11-2023 HCG.beta subunit (U) [Moles/Vol] Negative Normal [facility] [place] Man Sero U BetaHcg Qualon 05-11-2023 HCG.beta subunit (U) [Moles/Vol] Negative Normal [facility] Comment on above: Performed By: #### 2 0740751, [id number] ####[facility] [address] [place] [address] U Drug Screenon 05-11-2023 Amphetamines Screen method >1000 ng/mL Ql (U) Negative Normal NEGATIVE [facility] Comment on above: Result Comment: Nega tive Cutoff: <1000 ng/mL Performed By: #### 2 136638 ####[facility] [address] [place] [address] Barbiturates Screen Ql (U) Negative Normal NEGATIVE [facility] Comment on above: Result Comment: Nega tive Cutoff: <200 ng/mL Performed By: #### 2 175583 ####[facility] [address] [place] [address] Benzodiazepines Ql (U) Negative Normal NEGATIVE [facility] Comment on above: Result Comment: Nega tive Cutoff: <200 ng/mL Performed By: #### 2 747838 ####[facility] [address] [place] [address] Cannabinoids Screen Ql (U) Positive Abnormal NEGATIVE [facility] Comment on above: Result Comment: No C onfirmation Requested by PhysicianResult Verified by Repeat AnalysisUnconfirmed by an Alternate Methodcalled to Maribel Ortega by at [phone] Cutoff: <50 ng/mL Performed By: #### 2 983364 ####[address] [address] Cocaine Ql (U) Negative Normal NEGATIVE [facility] Comment on above: Result Comment: Nega tive Cutoff: <300 ng/mL Performed By: #### 2 277603 ####[facility] [address] [place] [address] Opiates Screen Ql (U) Positive Abnormal NEGATIVE [facility] Comment on above: Result Comment: No C onfirmation Requested by PhysicianResult Verified by Repeat AnalysisUnconfirmed by an Alternate Methodcalled to Maribel Ortega by [id number] Cutoff: <300 ng/mL Performed By: #### 2 742680 ####[address] [address] Phencyclidine Screen method >25 ng/mL Ql (U) Negative Normal NEGATIVE [facility] Comment on above: Result Comment: Nega tive Cutoff: <25 ng/mLThese drug screen results are to be used for medical (i.e., treatment) purposes only. Unconfirmed drug screening results must not be used for non-medical purposes (e.g., employment testing, legal testing). Performed By: #### 2 833910 ####[facility] [address] [place] [address] UA with Cult Rflxon 05-11-19 24 Color (U) Light-Yellow Normal Yellow [facility] Comment on above: Result Comment: Micr oscopic readings are only performed on those samples that meet specific criteria set forth by [facility]. Performed By: #### 2 1453341, [id number] ####[address] [place] [address] Glucose (U) [Mass/Vol] Negative Normal Negative [facility] Comment on above: Performed By: #### 2 4571266, [id number] ####[address] [address] Ketones Ql (U) Negative Normal Negative [facility] Comment on above: Performed By: #### 2 2518274, [id number] ####[address] [place] [address] UA Blood Negative Normal Negative [facility] Comment on above: Performed By: #### 2 8631361, [id number] ####[address] [place] [address] UA Clarity Clear Normal Clear [facility] Comment on above: Performed By: #### 2 6117301, [id number] ####[facility] [address] [place] [address] UA Leuk Est Negative Normal Negative [facility] Comment on above: Performed By: #### 2 1174992, [id number] ####[address] [place] [address] UA Nitrite Negative Normal Negative [facility] Comment on above: Performed By: #### 2 0409045, [id number] ####[address] [place] [address] UA pH 7.5 Invalid Interpretation Code 5.0-9.0 [facility] Comment on above: Performed By: #### 2 9149953, [id number] ####[facility] [address] [place] [address] UA Protein Negative Normal Negative [facility] Comment on above: Performed By: #### 2 3314656, [id number] ####[facility] [address] [place] [address] UA Spec Grav 1.010 Invalid Interpretation Code 1.005-1.030 [facility] Comment on above: Performed By: #### 2 2775487, [id number] ####[address] [address] UA Urobilinogen Negative Normal Negative [facility] Comment on above: Performed By: #### 2 8208932, [id number] ####[address] [address] Urobilinogen (U) [Mass/Vol] Negative Normal Negative [facility] Comment on above: Performed By: #### 2 8550861, [id number] ####[facility] [address] [place] [address] UA Spec Desc Clean Catch Normal [facility] Comment on above: Performed By: #### 2 3286975, [id number] ####[address] [address] URINALYSISOrdered By: SYSTEM SYSTEM on 05-11-2023 Color (U) Light-Yellow 3 (05/11/23 12:41 PM) Normal Yellow FT UA Auto SS Comment on above: Interpretive Data: M icroscopic readings are only performed on those samples that meet specific criteria set forth by [facility]. Glucose (U) [Mass/Vol] Negative Normal Negativemg/dL FT UA Auto SS Ketones Ql (U) Negative Normal Negativemg/dL FT UA Auto SS UA Blood Negative Normal Negativemg/dL FT UA Aut o SS UA Clarity Clear (05/11/23 12:41 PM) Normal Clear FT UA Auto SS UA Leuk Est Negative Normal NegativeLeu/uL [facility] [place] UA A uto SS UA Nitrite Negative Normal Negativemg/dL [facility] [place] UA Aut o SS UA pH 7.5 *NA* (05/11/23 12:41 PM) Invalid Interpretation Code 5.0 - 9.0 [facility] [place] UA Auto SS UA Protein Negative Normal Negativemg/dL FT UA Aut o SS UA Spec Grav 1.010 *NA* (05/11/23 12:41 PM) Invalid Interpretation Code 1.005 - 1.030 [facility] [place] UA Auto SS UA Urobilinogen Negative Normal Negativemg/dL [facility] [place] U A Auto SS Urobilinogen (U) [Mass/Vol] Negative Normal Negativemg/dL [facility] [place] UA Auto SS URINALYSISOrdered By: Tiffani Cunningham on 05-11-2023 UA Spec Desc Clean Catch (05/11/23 12:41 PM) Normal [facility] [place] UA Auto SS eGFRon 05-11-2023 eGFR 99 mL/min/1.73 m2 Normal >=59 [facility] Comment on above: Order Comment: Order added by Discern Expert. Performed By: #### 2 478794, 3681619, 5284678, 6286401, 73607345, 6244699 ####[facility] [address] [place] [address] Ambulatory Visit Summaryon 0 05-10-2023 Ambulatory Visit Summary Normal [address] [place] [address]- \.br\ Medications\.br\ What How Much When Why Instructions\.br\ Unchanged albuterol (Albuterol (Eqv-Ventolin HFA) 90 mcg/ inh inhalation aerosol) 2 Puffs Inhalation Every 6 hours\.br\ Unchanged busPIRone (busPIRone 10 mg Tab) 1 Tablets By Mouth 2 times a day\.br\ Unchanged diazepam (diazepam 5 mg Tab) 1 Tablets By Mouth Every 8 hours TAKE 1 TABLET (5 MG) BY MOUTH EVERY 8 HOURS IF NEEDED FOR MUSCLE SPASMS. \.br\ Unchanged dicyclomine (Bentyl 10 mg Cap) 2 Capsules By Mouth 4 times a day\.br\ Unchanged dicyclomine (dicyclomine 20 mg Tab) 1 Tablets By Mouth 4 times a day Duration: 7 Days\.br\ Unchanged escitalopram (escitalopram 20 mg Tab) 1 Tablets By Mouth Every day\.br\ Unchanged fluticasone-salmete rol (Advair Diskus 100 mcg-50 mcg inhalation powder) See instructions Bronchitis Take 1 puff 2x daily. \.br\ Unchanged levothyroxine (levothyroxine 75 mcg (0.075 mg) Tab) 1 Tablets By Mouth Every day\.br\ Unchanged liothyronine (liothyronine 5 mcg Tab) 5 Microgram By Mouth Every day\.br\ Unchanged methylPREDNISolone (methylPREDNISolone 4 mg tab dosepak) 1 Packets By Mouth Once as directed on package labeling \.br\ Unchanged metoclopramide (metoclopramide 10 mg Tab) 1 Tablets By Mouth 4 times a day\.br\ Unchanged mirtazapine (mirtazapine 15 mg Tab) 1 Tablets By Mouth Once a day (at bedtime)\.br\ Unchanged ondansetron (Zofran 4 mg Tab) 1 Tablets By Mouth Every 6 hours as needed for Nausea Take one tab by mouth every six hours as needed for nausea \.br\ Unchanged ondansetron (Zofran ODT 4 mg Tab-Dis) 1 Tablets By Mouth Every 8 hours as needed for Nausea/Vomiting\.br \ Unchanged oxycodone (oxyCODONE 5 mg Tab) 1 Tablets By Mouth Every 6 hours Chronic abdominal pain Duration: 3 Days\.br\ Unchanged promethazine (Phenergan 25 mg Supp) 1 Suppositories By rectum Every 6 hours as needed for Nausea/Vomiting\.br \ Unchanged promethazine (promethazine 25 mg Tab) 1 Tablets By Mouth 3 times a day\.br\ Unchanged promethazine (promethazine 25 mg Tab) 1 Tablets By Mouth Every 6 hours as needed for as needed for nausea/vomiting\.br \ Unchanged topiramate (topiramate 100 mg Tab) See instructions TAKE 1 TABLET BY MOUTH TWICE A DAY \.br\ Allergies\.br\ NSAIDs (Unknown)\.br\ codeine (unknown)\.br\ Problems\.br\ Ongoing - Any problem that you are currently receiving treatment for.\.br\ Abnormal thyroid blood test\.br\ Arthritis\.br\ Asthma\.br\ BMI 30.0-30.9,adult\.br \ Bronchitis\.br\ Depression\.br\ Dysfunction of sphincter of Oddi\.br\ Fatigue\.br\ Gall stone\.br\ Gastroparesis\.br\ Hyperthyroidism\.br \ Hypothyroid\.br\ Kidney cysts\.br\ Kidney stone\.br\ LUQ pain\.br\ Malnourished\.br\ Median arcuate ligament syndrome\.br\ Mixed incontinence urge and stress\.br\ Nausea\.br\ Otitis media of left ear\.br\ Rash of body\.br\ Renal cyst\.br\ Right flank pain\.br\ Status post surgery\.br\ Historical - Any problem that you are no longer receiving treatment for.\.br\ Allergic rhinitis\.br\ Anemia\.br\ Hypothyroidism\.br\ Median arcuate ligament syndrome\.br\ Metabolic syndrome\.br\ PCOS- polycystic ovary syndrome\.br\ Patient Survey\.br\ You may receive a survey via text or e-mail asking about your office visit. Please share your experience with us by completing your survey. We appreciate your feedback and thank you for choosing us for your care.\.br\ \.br\ [facility] CNPNon 05-10-2023 CNPN Normal [facility] Family Medicine Office/Clini c Noteon 05-10-2023 Family Medicine Office/Clinic Note Normal [facility] Comment on above: Result Comment: Elec tronically Signed By: Jaquan Paula\.br\Date and Time Signed: 05/10/23 14:35 EDT Home Health Recordson 2023 Home Health Records [id number] 80#1.00TIFF Normal [facility] Provider Letteron 05-10-2023 Provider Letter Normal [facility] B hCG Qualon 05-09-2023 Beta HCG ( test) Ql Negative Normal [facility] Comment on above: Performed By: #### 2 282896, 4193804, 7324643, 8251967, 53309238, [id number] ####[facility] [address] [place] [address] BMPon 05-09-2023 Anion gap [Moles/Vol] 12 mmol/L Normal 6-16 [facility] Comment on above: Performed By: #### 2 745251, 4738327, 8698312, 9097415, 85109697, 26803154 ####[facility] [address] [place] [address] Calcium [Mass/Vol] 8.6 mg/dL Low 8.9-11.1 [facility] Comment on above: Performed By: #### 2 208340, 0760720, 2051302, 5283369, 83055242, 11752696 ####[facility] [address] [place] [address] Chloride [Moles/Vol] 109 mmol/L Normal 101-111 [facility] Comment on above: Performed By: #### 2 301754, 3393725, 3563562, 6769227, 89955240, 40872861 ####[facility] [address] [place] [address] CO2 [Moles/Vol] 23 mmol/L Normal 21-31 [facility] Comment on above: Performed By: #### 2 857722, 3538568, 5697476, 1073659, 13851183, 13834871 ####[facility] [address] [place] [address] Creatinine [Mass/Vol] 0.8 mg/dL Normal 0.5-1.3 [facility] Comment on above: Performed By: #### 2 350549, 7274881, 5989650, 3952546, 17530519, 28543075 ####[facility] [address] [place] [address] Glucose [Mass/Vol] 79 mg/dL Normal 55-199 [facility] Comment on above: Performed By: #### 2 120993, 0052595, 8590606, 3666607, 08577257, 56703381 ####[facility] [address] [place] [address] Potassium [Moles/Vol] 3.9 mmol/L Normal 3.5-5.3 [facility] Comment on above: Performed By: #### 2 563300, 9601602, 4918241, 7386265, 38938806, 35543100 ####[facility] [address] [place] [address] Sodium [Moles/Vol] 140 mmol/L Normal 135-145 [facility] Comment on above: Performed By: #### 2 536780, 6869671, 1012635, 2905004, 54204864, 47935162 ####[address] [address] Urea nitrogen [Mass/Vol] 9 mg/dL Normal 5-21 [facility] Comment on above: Performed By: #### 2 751897, 8668017, 4537976, 1132909, 39305641, 75621889 ####[address] [address] Urea nitrogen/Creatinine [Mass ratio] 11 No Units Normal 10-20 [facility] Comment on above: Performed By: #### 2 727988, 2510134, 1162747, 3266032, 04959352, 50584810 ####[address] [address] CBC w/ Auto Diffon 4 Basophils/100 WBC (Bld) 1.1 % Normal 0.0-2.0 [facility] Comment on above: Performed By: #### 2 286126, 5916569, 7774965, 0763318, 51875624, 32955522 ####[address] [address] Basophils/Leukocyte s Auto (Bld) [Pure # fraction] 0.0 E9/L Normal 0.0-0.2 [facility] Comment on above: Performed By: #### 2 688291, 3122512, 1963573, 3078694, 17347628, 58266604 ####[address] [address] Eosinophils (Bld) [#/Vol] 0.1 E9/L Normal 0.0-0.5 [facility] Comment on above: Performed By: #### 2 672218, 0238638, 6768280, 4270883, 39551125, 41542045 ####[address] [address] Eosinophils/100 WBC (Bld) 2.1 % Normal 0.0-8.0 [facility] Comment on above: Performed By: #### 2 620720, 0118813, 5648620, 5083007, 97828504, 02627804 ####[address] [address] Erythrocyte distribution width (RBC) [Ratio] 14.4 % High 10.9-14.2 [facility] Comment on above: Performed By: #### 2 479017, 4094708, 9244662, 7257604, 97980847, 17717542 ####[address] [address] Hematocrit (Bld) [Volume fraction] 36.3 % Normal 34.0-46.0 [facility] Comment on above: Performed By: #### 2 386272, 7150761, 7275693, 9374192, 07253544, 00085162 ####[address] [address] Hemoglobin (Bld) [Mass/Vol] 12.3 g/dL Normal 12.0-16.0 [facility] Comment on above: Performed By: #### 2 687761, 2935675, 9865629, 5755204, 07082975, 25604775 ####[address] [address] Lymphocytes (Bld) [#/Vol] 1.2 E9/L Normal 1.0-4.0 [facility] Comment on above: Performed By: #### 2 150935, 0050754, 8390214, 1607105, 20528789, 87655648 ####[address] [address] Lymphocytes/100 WBC (Bld) 42.2 % Normal 14.0-50.0 [facility] Comment on above: Performed By: #### 2 568888, 2747644, 4383139, 4277037, 14121389, 36087897 ####[address] [place] [address] MCH (RBC) [Entitic mass] 30.2 pg Normal 27.0-34.0 [facility] Comment on above: Performed By: #### 2 844265, 6304162, 1163843, 5422226, 62661300, 10220870 ####[address] [address] MCHC (RBC) [Mass/Vol] 33.9 g/dL Normal 31.4-36.0 [facility] Comment on above: Performed By: #### 2 988756, 0644665, 3734991, 4967722, 82259435, 29950019 ####[address] [address] MCV (RBC) [Entitic vol] 89.2 fL Normal 80.0-100.0 [facility] Comment on above: Performed By: #### 2 350749, 7723390, 0366842, 2301384, 31994088, 79793637 ####[address] [address] Monocytes (Bld) [#/Vol] 0.3 E9/L Normal 0.2-1.0 [facility] Comment on above: Performed By: #### 2 070630, 5984209, 6113025, 2749238, 47259474, 04105951 ####[address] [place] [address] Neutrophils (Bld) [#/Vol] 1.2 E9/L Low 2.0-7.5 [facility] Comment on above: Performed By: #### 2 260026, 3782984, 0155393, 9235435, 19455240, 15798485 ####[address] [address] Neutrophils/100 WBC (Bld) 44.3 % Normal 36.0-75.0 [facility] Comment on above: Performed By: #### 2 424035, 7096627, 6019853, 5335955, 21646041, 60040978 ####[address] [address] Platelet 201.0 E9/L Normal 150.0-500.0 [facility] Comment on above: Performed By: #### 2 671144, 0326672, 7666543, 3794786, 63607941, 15785088 ####[address] [address] Platelet mean volume (Bld) [Entitic vol] 9.8 fL Normal 6.4-10.8 [facility] Comment on above: Performed By: #### 2 116025, 4906255, 7759744, 6815879, 78446217, 29889140 ####[address] [address] RBC (Bld) [#/Vol] 4.1 E12/L Low 4.3-5.9 [facility] Comment on above: Performed By: #### 2 317005, 2796054, 0287151, 5370240, 83106091, 36137967 ####[address] [address] WBC corrected for nucl RBC Auto (Bld) [#/Vol] 2.8 E9/L Low 4.0-11.0 [facility] Comment on above: Performed By: #### 2 398160, 9450686, 4672007, 5960528, 92341367, 71032700 ####[address] [address] CHEMISTRYOrdered By: SYSTEM SYSTEM on 05-09-2023 Albumin [Mass/Vol] 4.3 g/dL Normal 3.3 - 5.0 gm/dL R emisol Chem Albumin/Globulin [Mass ratio] 1.8 {ratio} Normal 1.1 - 2.2 Remisol Chem ALP [Catalytic activity/Vol] 51 [iU]/d Normal 21 - 98 Int._Unit/L Remisol Chem ALT No additional P-5'-P [Catalytic activity/Vol] 15 [iU]/d Normal 6 - 46 Int._Unit/L Remisol Chem Anion gap [Moles/Vol] 12 mmol/L Normal 6 - 16 mEq/L Remisol Chem AST [Catalytic activity/Vol] 26 [iU]/d Normal 5 - 43 Int._Unit/L Remisol Chem Bilirubin [Mass/Vol] 0.3 mg/dL Normal 0.0 - 1.1 mg/dL Remisol Chem Bilirubin.direct [Mass/Vol] 0.1 mg/dL Normal 0.0 - 0.4 mg/dL Remisol Chem Bilirubin.indirect [Mass or moles/Vol] 0.2 mg/dL Normal 0.1 - 0.9 mg/dL Remisol Chem Calcium [Mass/Vol] 8.6 mg/dL Low 8.9 - 11.1 mg/dL Remisol Chem Chloride [Moles/Vol] 109 mmol/L Normal 101 - 111 mmol/L Remisol Chem CO2 [Moles/Vol] 23 mmol/L Normal 21 - 31 mmol/L Remis ol Chem Creatinine [Mass/Vol] 0.8 mg/dL Normal 0.5 - 1.3 mg/dL Remisol Chem eGFR 99 mL/min/1.73 m2 Normal >=59mL/min/1.73 m2 Remisol Chem Globulin (S) [Mass/Vol] 2.4 g/dL Normal 1.4 - 4.0 gm/dL Remisol Chem Glucose [Mass/Vol] 79 mg/dL Normal 55 - 199 mg/dL Re misol Chem Lipase [Catalytic activity/Vol] 68 U/L High 13 - 58 unit/L Remisol Chem Potassium [Moles/Vol] 3.9 mmol/L Normal 3.5 - 5.3 mmol/L Remisol Chem Protein [Mass/Vol] 6.7 g/dL Normal 6.0 - 7.8 gm/dL R emisol Chem Sodium [Moles/Vol] 140 mmol/L Normal 135 - 145 mmol/L Remisol Chem Urea nitrogen [Mass/Vol] 9 mg/dL Normal 5 - 21 mg/dL Remisol Chem Urea nitrogen/Creatinine [Mass ratio] 11 mg/mg Normal 10 - 20 Remisol Chem Consent for Treatmenton 04-16 Consent for Treatment [id number] E0#1.00TIFF Normal [facility] Discharge Instructionson Discharge Instructions [id number] 14#1.00TIFF Normal [facility] ED Clinical Summaryon 2023 ED Clinical Summary Normal [facility] ED Note-Nursingon 05-09-2023 ED Note-Nursing Discharge materials given, wheeled patient out. Home with family care. Normal [facility] ED Note-Physicianon 05-09-19 ED Note-Physician [facility] Comment on above: Result Comment: Elec tronically Signed By: Lonnie Rios PA-C\.br\Date and Time Signed: 05/09/23 15:52 EDT\.br\Electronically Co-Signed By: Mateusz Garcia DO\.br\Date and Time Co-Signed: 05/09/23 17:19 EDT ED Patient Education Noteon 05-09-2023 ED Patient Education Note Normal [facility] ED Patient Summaryon 024 ED Patient Summary Normal [facility] HEMATOLOGYOrdered By: SYSTEM SYSTEM on 05-09-2023 Basophils/100 WBC (Bld) 1.1 % Normal 0.0 - 2.0 % Remisol Heme Basophils/Leukocyte s Auto (Bld) [Pure # fraction] 0.0 E9/L Normal 0.0 - 0.2 E9/L Remisol Heme Eosinophils (Bld) [#/Vol] 0.1 E9/L Normal 0.0 - 0.5 E9/L Remisol Heme Eosinophils/100 WBC (Bld) 2.1 % Normal 0.0 - 8.0 % Remisol Heme Erythrocyte distribution width (RBC) [Ratio] 14.4 % High 10.9 - 14.2 % Remisol Heme Hematocrit (Bld) [Volume fraction] 36.3 % Normal 34.0 - 46.0 % Remisol Heme Hemoglobin (Bld) [Mass/Vol] 12.3 g/dL Normal 12.0 - 16.0 gm/dL Remisol Heme Lymphocytes (Bld) [#/Vol] 1.2 E9/L Normal 1.0 - 4.0 E9/L Remisol Heme Lymphocytes/100 WBC (Bld) 42.2 % Normal 14.0 - 50.0 % Remisol Heme MCH (RBC) [Entitic mass] 30.2 pg Normal 27.0 - 34.0 pg Remisol Heme MCHC (RBC) [Mass/Vol] 33.9 g/dL Normal 31.4 - 36.0 gm/dL Remisol Heme MCV (RBC) [Entitic vol] 89.2 fL Normal 80.0 - 100.0 fL Remisol Heme Monocytes (Bld) [#/Vol] 0.3 E9/L Normal 0.2 - 1.0 E9/L Remisol Heme Monocytes/100 WBC (Bld) 10.3 % Normal 4.0 - 14.0 % Remisol Heme Neutrophils (Bld) [#/Vol] 1.2 E9/L Low 2.0 - 7.5 E9/L Remisol Heme Neutrophils/100 WBC (Bld) 44.3 % Normal 36.0 - 75.0 % Remisol Heme Platelet 201.0 E9/L Normal 150.0 - 500.0 E9/L Remiso l Heme Platelet mean volume (Bld) [Entitic vol] 9.8 fL Normal 6.4 - 10.8 fL Remisol Heme RBC (Bld) [#/Vol] 4.1 E12/L Low 4.3 - 5.9 E12/L Re misol Heme WBC corrected for nucl RBC Auto (Bld) [#/Vol] 2.8 E9/L Low 4.0 - 11.0 E9/L Remisol Heme Hep Func Panelon 05-09-2023 Albumin [Mass/Vol] 4.3 g/dL Normal 3.3-5.0 [facility] Comment on above: Performed By: #### 2 798881, 5781233, 3284524, 1079246, 10695505, 83532064 ####[facility] [address] [place] [address] Albumin/Globulin (S) [Mass conc ratio] 1.8 Normal 1.1-2.2 [facility] Comment on above: Performed By: #### 2 395977, 8900502, 5678389, 7957416, 05353486, 56984090 ####[facility] [address] [place] [address] ALP [Catalytic activity/Vol] 51 Int._Unit/L Normal 21-98 [facility] Comment on above: Performed By: #### 2 158385, 6065749, 1518676, 2435754, 51898429, 67912242 ####[address] [place] [address] ALT No additional P-5'-P [Catalytic activity/Vol] 15 Int._Unit/L Normal 6-46 [facility] Comment on above: Performed By: #### 2 158724, 6333503, 2218246, 9373676, 39153899, 15342103 ####[address] [address] AST [Catalytic activity/Vol] 26 Int._Unit/L Normal 5-43 [facility] Comment on above: Performed By: #### 2 514350, 2018282, 0075998, 6454682, 39296207, 72860495 ####[address] [address] Bilirubin [Mass/Vol] 0.3 mg/dL Normal 0.0-1.1 [facility] Comment on above: Performed By: #### 2 431628, 9857059, 0556824, 4317556, 27008621, 96170740 ####[address] [place] [address] Bilirubin.direct [Mass/Vol] 0.1 mg/dL Normal 0.0-0.4 [facility] Comment on above: Performed By: #### 2 290666, 7257476, 4659686, 8755003, 10455577, 62689675 ####[facility] [address] [place] [address] Bilirubin.indirect [Mass or moles/Vol] 0.2 mg/dL Normal 0.1-0.9 [facility] Comment on above: Performed By: #### 2 607778, 4847464, 0029570, 4828293, 93826387, 70168746 ####[facility] [address] [place] [address] Globulin (S) [Mass/Vol] 2.4 g/dL Normal 1.4-4.0 [facility] Comment on above: Performed By: #### 2 227527, 3537153, 5206897, 8129108, 69824281, 67534615 ####[facility] [address] [place] [address] Protein [Mass/Vol] 6.7 g/dL Normal 6.0-7.8 [facility] Comment on above: Performed By: #### 2 345254, 3365437, 4744556, 1816869, 48621500, 38548031 ####[facility] [address] [place] [address] Lipase Levelon 05-09-2023 Lipase [Catalytic activity/Vol] 68 U/L High 13-58 [facility] Comment on above: Performed By: #### 2 041998, 3957449, 6771732, 1040287, 37092666, 16171775 ####[address] [address] SEROLOGYOrdered By: Stacia Arroyo on 05-09-2023 Beta HCG ( test) Ql Negative (05/09/23 12:12 PM) Normal [facility] [place] Man Sero eGFRon 05-09-2023 eGFR 99 mL/min/1.73 m2 Normal >=59 [facility] Comment on above: Order Comment: Order added by Discern Expert. Performed By: #### 2 987120, 9915550, 4489711, 3651057, 33579157, 61925133 ####[facility] [address] [place] [address] CNPNon 05-07-2023 CNPN Normal [facility] ED Note-Physicianon 05-07-19 24 ED Note-Physician Normal [facility] Comment on above: Result Comment: Elec tronically Signed By: Justine German PA-C\.br\Date and Time Signed: 05/06/23 21:25 EDT\.br\Electronically Co-Signed By: Mateusz Garcia DO\.br\Date and Time Co-Signed: 05/07/23 07:00 EDT Monitor Recordon 05-07-2023 Monitor Record [id number] 932#1.00TIFF Normal [facility] Monitor Record [id number] 260#1.00TIFF Normal [facility] Monitor Record [id number] 669#1.00TIFF Normal [facility] Monitor Record [id number] 349#1.00TIFF Normal [facility] Amylaseon 05-06-2023 Amylase [Catalytic activity/Vol] 40 U/L Normal 25-157 [facility] Comment on above: Order Comment: pt wa s poked once, pt extremely dehydrated and would like to wait for IV start [id number] 05/06/2023 16:33:00 EDT Performed By: #### 2 176373, 9422627, 0063239, 96389109, 1907543, 7003151, 4817092 ####[facility] [address] [place] [address] BMPon 05-06-2023 Anion gap [Moles/Vol] 13 mmol/L Normal 6-16 [facility] Comment on above: Order Comment: pt wa s poked once, pt extremely dehydrated and would like to wait for IV start [id number] 05/06/2023 16:33:00 EDT Performed By: #### 2 441254, 9134015, 1258755, 33651382, 7322911, 6248274, 9950860 ####[facility] [address] [place] [address] Calcium [Mass/Vol] 9.1 mg/dL Normal 8.9-11.1 [facility] Comment on above: Order Comment: pt lillian cruz poked once, pt extremely dehydrated and would like to wait for IV start [id number] 05/06/2023 16:33:00 EDT Performed By: #### 2 927726, 7214140, 2479421, 31386093, 2300085, 0713083, 4376222 ####[facility] [address] [place] [address] Chloride [Moles/Vol] 107 mmol/L Normal 101-111 [facility] Comment on above: Order Comment: pt lillian cruz poked once, pt extremely dehydrated and would like to wait for IV start [id number] 05/06/2023 16:33:00 EDT Performed By: #### 2 572649, 8210574, 8772738, 88437623, 9984705, 4630473, 6609544 ####[facility] [address] [place] [address] CO2 [Moles/Vol] 22 mmol/L Normal 21-31 [facility] Comment on above: Order Comment: pt lillian cruz poked once, pt extremely dehydrated and would like to wait for IV start [id number] 05/06/2023 16:33:00 EDT Performed By: #### 2 028944, 2205656, 9661334, 55074096, 7049882, 0944747, 6419335 ####[facility] [address] [place] [address] Creatinine [Mass/Vol] 0.8 mg/dL Normal 0.5-1.3 [facility] Comment on above: Order Comment: pt lillian cruz poked once, pt extremely dehydrated and would like to wait for IV start [id number] 05/06/2023 16:33:00 EDT Performed By: #### 2 882058, 1601213, 3760990, 94517845, 1129513, 5779455, 5287860 ####[facility] [address] [place] [address] Glucose [Mass/Vol] 80 mg/dL Normal 55-199 [facility] Comment on above: Order Comment: pt lillian cruz poked once, pt extremely dehydrated and would like to wait for IV start [id number] 05/06/2023 16:33:00 EDT Performed By: #### 2 348591, 1025866, 3993580, 78247624, 8944293, 5534354, 5100060 ####[facility] [address] [place] [address] Potassium [Moles/Vol] 3.7 mmol/L Normal 3.5-5.3 [facility] Comment on above: Order Comment: pt lillian cruz poked once, pt extremely dehydrated and would like to wait for IV start [id number] 05/06/2023 16:33:00 EDT Performed By: #### 2 211176, 9454505, 2753872, 97367287, 5488150, 0443652, 1458589 ####[facility] [address] [place] [address] Sodium [Moles/Vol] 138 mmol/L Normal 135-145 [facility] Comment on above: Order Comment: pt lillian cruz poked once, pt extremely dehydrated and would like to wait for IV start [id number] 05/06/2023 16:33:00 EDT Performed By: #### 2 698691, 3278226, 3794617, 19435954, 6598812, 4750198, 2963707 ####[facility] [address] [place] [address] Urea nitrogen [Mass/Vol] 10 mg/dL Normal 5-21 [facility] Comment on above: Order Comment: pt lillian cruz poked once, pt extremely dehydrated and would like to wait for IV start [id number] 05/06/2023 16:33:00 EDT Performed By: #### 2 069784, 3761556, 9187461, 00873426, 2608323, 7815551, 7967422 ####[facility] [address] [place] [address] Urea nitrogen/Creatinine [Mass ratio] 12 No Units Normal 10-20 [facility] Comment on above: Order Comment: pt lillian cruz poked once, pt extremely dehydrated and would like to wait for IV start [id number] 05/06/2023 16:33:00 EDT Performed By: #### 2 214082, 8323652, 4529321, 79884147, 7279783, 1264194, 5160471 ####[facility] [address] [place] [address] CBC w/ Auto Diffon 4 Basophils/100 WBC (Bld) 1.1 % Normal 0.0-2.0 [facility] Comment on above: Order Comment: pt lillian cruz poked once, pt extremely dehydrated and would like to wait for IV start [id number] 05/06/2023 16:33:00 EDT Performed By: #### 2 188930, 2577247, 1672799, 09344025, 4931547, 9562488, 9335776 ####[facility] [address] [place] [address] Basophils/Leukocyte s Auto (Bld) [Pure # fraction] 0.0 E9/L Normal 0.0-0.2 [facility] Comment on above: Order Comment: pt lillian crzu poked once, pt extremely dehydrated and would like to wait for IV start [id number] 05/06/2023 16:33:00 EDT Performed By: #### 2 405120, 5483787, 9939992, 84562956, 0130908, 1539844, 1787885 ####[facility] [address] [place] [address] Eosinophils (Bld) [#/Vol] 0.1 E9/L Normal 0.0-0.5 [facility] Comment on above: Order Comment: pt lillian cruz poked once, pt extremely dehydrated and would like to wait for IV start [id number] 05/06/2023 16:33:00 EDT Performed By: #### 2 962630, 1244020, 1818348, 07515598, 1133404, 6742574, 3809195 ####[facility] [address] [place] [address] Eosinophils/100 WBC (Bld) 1.5 % Normal 0.0-8.0 [facility] Comment on above: Order Comment: pt wa s poked once, pt extremely dehydrated and would like to wait for IV start [id number] 05/06/2023 16:33:00 EDT Performed By: #### 2 458700, 0397436, 8515366, 08264689, 6561830, 6378707, 2351923 ####[facility] [address] [place] [address] Erythrocyte distribution width (RBC) [Ratio] 14.1 % Normal 10.9-14.2 [facility] Comment on above: Order Comment: pt wa s poked once, pt extremely dehydrated and would like to wait for IV start [id number] 05/06/2023 16:33:00 EDT Performed By: #### 2 395543, 7824465, 1835851, 96581088, 1911396, 8203524, 2439912 ####[facility] [address] [place] [address] Hematocrit (Bld) [Volume fraction] 37.9 % Normal 34.0-46.0 [facility] Comment on above: Order Comment: pt wa s poked once, pt extremely dehydrated and would like to wait for IV start [id number] 05/06/2023 16:33:00 EDT Performed By: #### 2 683188, 4657487, 4519761, 29199957, 7582121, 7145997, 2282864 ####[facility] [address] [place] [address] Hemoglobin (Bld) [Mass/Vol] 12.9 g/dL Normal 12.0-16.0 [facility] Comment on above: Order Comment: pt wa s poked once, pt extremely dehydrated and would like to wait for IV start [id number] 05/06/2023 16:33:00 EDT Performed By: #### 2 024852, 2466609, 8341358, 07736838, 2628152, 4572700, 4464136 ####[facility] [address] [place] [address] Lymphocytes (Bld) [#/Vol] 1.4 E9/L Normal 1.0-4.0 [facility] Comment on above: Order Comment: pt wa s poked once, pt extremely dehydrated and would like to wait for IV start [id number] 05/06/2023 16:33:00 EDT Performed By: #### 2 773118, 9381819, 4574683, 92135348, 4988668, 0937429, 9560976 ####[facility] [address] [place] [address] Lymphocytes/100 WBC (Bld) 33.8 % Normal 14.0-50.0 [facility] Comment on above: Order Comment: pt wa s poked once, pt extremely dehydrated and would like to wait for IV start [id number] 05/06/2023 16:33:00 EDT Performed By: #### 2 355811, 1209619, 1587516, 64878206, 8171364, 1960670, 7655462 ####[facility] [address] [place] [address] MCH (RBC) [Entitic mass] 30.3 pg Normal 27.0-34.0 [facility] Comment on above: Order Comment: pt wa s poked once, pt extremely dehydrated and would like to wait for IV start [id number] 05/06/2023 16:33:00 EDT Performed By: #### 2 111222, 6709520, 5749273, 55529800, 3527695, 4461519, 1403657 ####[facility] [address] [place] [address] MCHC (RBC) [Mass/Vol] 34.1 g/dL Normal 31.4-36.0 [facility] Comment on above: Order Comment: pt wa s poked once, pt extremely dehydrated and would like to wait for IV start [id number] 05/06/2023 16:33:00 EDT Performed By: #### 2 782602, 5821799, 0812562, 45663827, 2016075, 5813386, 9905062 ####[facility] [address] [place] [address] MCV (RBC) [Entitic vol] 88.8 fL Normal 80.0-100.0 [facility] Comment on above: Order Comment: pt wa s poked once, pt extremely dehydrated and would like to wait for IV start [id number] 05/06/2023 16:33:00 EDT Performed By: #### 2 831932, 9977237, 9408260, 18715697, 5587128, 4871186, 9283731 ####[facility] [address] [place] [address] Monocytes (Bld) [#/Vol] 0.3 E9/L Normal 0.2-1.0 [facility] Comment on above: Order Comment: pt wa s poked once, pt extremely dehydrated and would like to wait for IV start [id number] 05/06/2023 16:33:00 EDT Performed By: #### 2 269453, 3337125, 2492465, 72262994, 5979314, 9755195, 7941357 ####[facility] [address] [place] [address] Neutrophils (Bld) [#/Vol] 2.3 E9/L Normal 2.0-7.5 [facility] Comment on above: Order Comment: pt wa s poked once, pt extremely dehydrated and would like to wait for IV start [id number] 05/06/2023 16:33:00 EDT Performed By: #### 2 [id number], 5201710, 4483288, 70931016, 3975668, 7873649, 6585436 ####[address] [address] Neutrophils/100 WBC (Bld) 56.4 % Normal 36.0-75.0 [facility] Comment on above: Order Comment: pt wa s poked once, pt extremely dehydrated and would like to wait for IV start [id number] 05/06/2023 16:33:00 EDT Performed By: #### 2 822701, 5394196, 9606202, 12734438, 9035578, 4019462, 7138192 ####[facility] [address] [place] [address] Platelet mean volume (Bld) [Entitic vol] 9.2 fL Normal 6.4-10.8 [facility] Comment on above: Order Comment: pt wa s poked once, pt extremely dehydrated and would like to wait for IV start [id number] 05/06/2023 16:33:00 EDT Performed By: #### 2 814000, 6640861, 2712257, 27199535, 4434498, 7263275, 8949134 ####[address] [address] Platelets (Bld) [#/Vol] 192.0 E9/L Normal 150.0-500.0 [facility] Comment on above: Order Comment: pt wa s poked once, pt extremely dehydrated and would like to wait for IV start [id number] 05/06/2023 16:33:00 EDT Performed By: #### 2 715186, 7166206, 8481870, 46723135, 5417399, 8972781, 4398105 ####[address] [address] RBC (Bld) [#/Vol] 4.3 E12/L Normal 4.3-5.9 [facility] Comment on above: Order Comment: pt wa s poked once, pt extremely dehydrated and would like to wait for IV start [id number] 05/06/2023 16:33:00 EDT Performed By: #### 2 355613, 4285930, 8750707, 88786951, 3570482, 5290011, 8222913 ####[address] [address] WBC corrected for nucl RBC Auto (Bld) [#/Vol] 4.1 E9/L Normal 4.0-11.0 [facility] Comment on above: Order Comment: pt wa s poked once, pt extremely dehydrated and would like to wait for IV start [id number] 05/06/2023 16:33:00 EDT Performed By: #### 2 175751, 1156541, 4818461, 70917198, 5635938, 0812675, 0498338 ####[facility] [address] [place] [address] CHEMISTRYOrdered By: SYSTEM SYSTEM on 05-06-2023 Albumin [Mass/Vol] 4.6 g/dL Normal 3.3 - 5.0 gm/dL R emisol Chem Albumin/Globulin [Mass ratio] 1.8 {ratio} Normal 1.1 - 2.2 Remisol Chem ALP [Catalytic activity/Vol] 56 [iU]/d Normal 21 - 98 Int._Unit/L Remisol Chem ALT No additional P-5'-P [Catalytic activity/Vol] 14 [iU]/d Normal 6 - 46 Int._Unit/L Remisol Chem Amylase [Catalytic activity/Vol] 40 U/L Normal 25 - 157 unit/L Remisol Chem Anion gap [Moles/Vol] 13 mmol/L Normal 6 - 16 mEq/L Remisol Chem AST [Catalytic activity/Vol] 25 [iU]/d Normal 5 - 43 Int._Unit/L Remisol Chem Bilirubin [Mass/Vol] 0.5 mg/dL Normal 0.0 - 1.1 mg/dL Remisol Chem Bilirubin.direct [Mass/Vol] 0.1 mg/dL Normal 0.0 - 0.4 mg/dL Remisol Chem Bilirubin.indirect [Mass or moles/Vol] 0.4 mg/dL Normal 0.1 - 0.9 mg/dL Remisol Chem Calcium [Mass/Vol] 9.1 mg/dL Normal 8.9 - 11.1 mg/dL Remisol Chem Chloride [Moles/Vol] 107 mmol/L Normal 101 - 111 mmol/L Remisol Chem CO2 [Moles/Vol] 22 mmol/L Normal 21 - 31 mmol/L Remis ol Chem Creatinine [Mass/Vol] 0.8 mg/dL Normal 0.5 - 1.3 mg/dL Remisol Chem eGFR 99 mL/min/1.73 m2 Normal >=59mL/min/1.73 m2 Remisol Chem Globulin (S) [Mass/Vol] 2.5 g/dL Normal 1.4 - 4.0 gm/dL Remisol Chem Glucose [Mass/Vol] 80 mg/dL Normal 55 - 199 mg/dL Re misol Chem Lactic Acid Lvl 0.7 mmol/L Normal 0.5 - 2.2 mmol/L Rem isol Chem Lipase [Catalytic activity/Vol] 62 U/L High 13 - 58 unit/L Remisol Chem Potassium [Moles/Vol] 3.7 mmol/L Normal 3.5 - 5.3 mmol/L Remisol Chem Protein [Mass/Vol] 7.1 g/dL Normal 6.0 - 7.8 gm/dL R emisol Chem Sodium [Moles/Vol] 138 mmol/L Normal 135 - 145 mmol/L Remisol Chem Urea nitrogen [Mass/Vol] 10 mg/dL Normal 5 - 21 mg/dL Remisol Chem Urea nitrogen/Creatinine [Mass ratio] 12 mg/mg Normal 10 - 20 Remisol Chem Consent for Treatmenton 04-16 Consent for Treatment [id number] 11#1.00TIFF Normal [facility] Discharge Instructionson Discharge Instructions [id number]#1.00TIFF Normal [facility] ED Clinical Summaryon 2023 ED Clinical Summary Normal [facility] ED Patient Education Noteon 05-06-2023 ED Patient Education Note Normal [facility] ED Patient Summaryon 024 ED Patient Summary Normal [facility] HEMATOLOGYOrdered By: SYSTEM SYSTEM on 05-06-2023 Basophils/100 WBC (Bld) 1.1 % Normal 0.0 - 2.0 % Remisol Heme Basophils/Leukocyte s Auto (Bld) [Pure # fraction] 0.0 E9/L Normal 0.0 - 0.2 E9/L Remisol Heme Eosinophils (Bld) [#/Vol] 0.1 E9/L Normal 0.0 - 0.5 E9/L Remisol Heme Eosinophils/100 WBC (Bld) 1.5 % Normal 0.0 - 8.0 % Remisol Heme Erythrocyte distribution width (RBC) [Ratio] 14.1 % Normal 10.9 - 14.2 % Remisol Heme Hematocrit (Bld) [Volume fraction] 37.9 % Normal 34.0 - 46.0 % Remisol Heme Hemoglobin (Bld) [Mass/Vol] 12.9 g/dL Normal 12.0 - 16.0 gm/dL Remisol Heme Lymphocytes (Bld) [#/Vol] 1.4 E9/L Normal 1.0 - 4.0 E9/L Remisol Heme Lymphocytes/100 WBC (Bld) 33.8 % Normal 14.0 - 50.0 % Remisol Heme MCH (RBC) [Entitic mass] 30.3 pg Normal 27.0 - 34.0 pg Remisol Heme MCHC (RBC) [Mass/Vol] 34.1 g/dL Normal 31.4 - 36.0 gm/dL Remisol Heme MCV (RBC) [Entitic vol] 88.8 fL Normal 80.0 - 100.0 fL Remisol Heme Monocytes (Bld) [#/Vol] 0.3 E9/L Normal 0.2 - 1.0 E9/L Remisol Heme Monocytes/100 WBC (Bld) 7.2 % Normal 4.0 - 14.0 % Remisol Heme Neutrophils (Bld) [#/Vol] 2.3 E9/L Normal 2.0 - 7.5 E9/L Remisol Heme Neutrophils/100 WBC (Bld) 56.4 % Normal 36.0 - 75.0 % Remisol Heme Platelet mean volume (Bld) [Entitic vol] 9.2 fL Normal 6.4 - 10.8 fL Remisol Heme Platelets (Bld) [#/Vol] 192.0 E9/L Normal 150.0 - 500.0 E9/L Remisol Heme RBC (Bld) [#/Vol] 4.3 E12/L Normal 4.3 - 5.9 E12/L Re misol Heme WBC corrected for nucl RBC Auto (Bld) [#/Vol] 4.1 E9/L Normal 4.0 - 11.0 E9/L Remisol Heme Hep Func Panelon 05-06-2023 Albumin [Mass/Vol] 4.6 g/dL Normal 3.3-5.0 [facility] Comment on above: Order Comment: pt wa s poked once, pt extremely dehydrated and would like to wait for IV start [id number] 05/06/2023 16:33:00 EDT Performed By: #### 2 247201, 5821182, 7617031, 68969420, 7757947, 3969085, 3728031 ####[facility] [address] [place] [address] Albumin/Globulin (S) [Mass conc ratio] 1.8 Normal 1.1-2.2 [facility] Comment on above: Order Comment: pt wa s poked once, pt extremely dehydrated and would like to wait for IV start [id number] 05/06/2023 16:33:00 EDT Performed By: #### 2 250994, 9475246, 7649348, 76281436, 1587028, 6477271, 4682779 ####[address] [address] ALP [Catalytic activity/Vol] 56 Int._Unit/L Normal 21-98 [facility] Comment on above: Order Comment: pt wa s poked once, pt extremely dehydrated and would like to wait for IV start [id number] 05/06/2023 16:33:00 EDT Performed By: #### 2 673718, 1243762, 6548297, 45544629, 3406499, 9293064, 1221397 ####[facility] [address] [place] [address] ALT No additional P-5'-P [Catalytic activity/Vol] 14 Int._Unit/L Normal 6-46 [facility] Comment on above: Order Comment: pt wa s poked once, pt extremely dehydrated and would like to wait for IV start [id number] 05/06/2023 16:33:00 EDT Performed By: #### 2 653272, 2746874, 4720596, 39576265, 9671408, 7753802, 2842322 ####[facility] [address] [place] [address] AST [Catalytic activity/Vol] 25 Int._Unit/L Normal 5-43 [facility] Comment on above: Order Comment: pt wa s poked once, pt extremely dehydrated and would like to wait for IV start [id number] 05/06/2023 16:33:00 EDT Performed By: #### 2 977788, 1644484, 9428953, 68249455, 1302606, 9319246, 4229483 ####[facility] [address] [place] [address] Bilirubin [Mass/Vol] 0.5 mg/dL Normal 0.0-1.1 [facility] Comment on above: Order Comment: pt wa s poked once, pt extremely dehydrated and would like to wait for IV start [id number] 05/06/2023 16:33:00 EDT Performed By: #### 2 596689, 6879508, 1541628, 65411153, 8686863, 1495798, 0835560 ####[facility] [address] [place] [address] Bilirubin.direct [Mass/Vol] 0.1 mg/dL Normal 0.0-0.4 [facility] Comment on above: Order Comment: pt wa s poked once, pt extremely dehydrated and would like to wait for IV start [id number] 05/06/2023 16:33:00 EDT Performed By: #### 2 023325, 3331638, 5583923, 64739927, 8191131, 0407625, 9206001 ####[facility] [address] [place] [address] Bilirubin.indirect [Mass or moles/Vol] 0.4 mg/dL Normal 0.1-0.9 [facility] Comment on above: Order Comment: pt wa s poked once, pt extremely dehydrated and would like to wait for IV start [id number] 05/06/2023 16:33:00 EDT Performed By: #### 2 227923, 1331488, 9542278, 24304590, 8524136, 9723355, 4529138 ####[facility] [address] [place] [address] Globulin (S) [Mass/Vol] 2.5 g/dL Normal 1.4-4.0 [facility] Comment on above: Order Comment: pt lillian s poked once, pt extremely dehydrated and would like to wait for IV start [id number] 05/06/2023 16:33:00 EDT Performed By: #### 2 403519, 2101238, 3114462, 00189708, 8390405, 9628549, 7481526 ####[facility] [address] [place] [address] Protein [Mass/Vol] 7.1 g/dL Normal 6.0-7.8 [facility] Comment on above: Order Comment: pt lillian s poked once, pt extremely dehydrated and would like to wait for IV start [id number] 05/06/2023 16:33:00 EDT Performed By: #### 2 911862, 1927761, 2039374, 00163317, 8232033, 0774120, 0787646 ####[facility] [address] [place] [address] Lactic Acidon 05-06-2023 Lactic Acid Lvl 0.7 mmol/L Normal 0.5-2.2 [facility] Comment on above: Order Comment: pt lillian s poked once, pt extremely dehydrated and would like to wait for IV start [id number] 05/06/2023 16:33:00 EDT Performed By: #### 2 367359, 3176207, 4896276, 20685791, 7068322, 7370911, 5964331 ####[facility] [address] [place] [address] Lipase Levelon 05-06-2023 Lipase [Catalytic activity/Vol] 62 U/L High 13-58 [facility] Comment on above: Order Comment: pt lillian s poked once, pt extremely dehydrated and would like to wait for IV start [id number] 05/06/2023 16:33:00 EDT Performed By: #### 2 258783, 8514393, 8750097, 16840662, 4867278, 1279162, 5132037 ####[facility] [address] [place] [address] eGFRon 05-06-2023 eGFR 99 mL/min/1.73 m2 Normal >=59 [facility] Comment on above: Order Comment: Order added by Discern Expert. Performed By: #### 2 435653, 0437641, 5868904, 93970634, 2825534, 8141688, 2699188 ####[facility] [address] [place] [address] ED Note-Physicianon 04-07-19 ED Note-Physician [id number]#1.00TIFF Normal [facility] Alanine aminotransferase [En zymatic activity/volume] in Serum or PlasmaOrdered By: Trace Bullimore on 04-06-2023 ALT [Catalytic activity/Vol] 21 U/L 7-52 [facility] Albumin [Mass/volume] in Ser um or Plasma by Bromocresol green (BCG) dye binding methoOrdered By: Trace Bullimore on 04-06-2023 Albumin BCG dye [Mass/Vol] 4.5 g/dL 3.5-5.7 [facility] Alkaline phosphatase [Enzyma tic activity/volume] in Serum or PlasmaOrdered By: Trace Bullimore on 04-06-2023 ALP [Catalytic activity/Vol] 48 U/L 34-104 [facility] Amylaseon 04-06-2023 Amylase [Catalytic activity/Vol] 48 U/L Normal 29-103 [facility] Comment on above: Performed By: #### A MY, CBC, LIPASE, HEPATIC, BMP ####[facility] [address] [place] [address] [facility] Amylase [Enzymatic activity/ volume] in Serum or PlasmaOrdered By: Trace Bullimore on 04-06-2023 Amylase [Catalytic activity/Vol] 48 U/L 29-103 [facility] Aspartate aminotransferase [ Enzymatic activity/volume] in Serum or PlasmaOrdered By: Trace Bullimore on 04-06-2023 AST [Catalytic activity/Vol] 28 U/L 13-39 [facility] Automated erythrocytes count in urine sediment (number/area)Ordered By: Trace Bullimore on 04-06-2023 RBC Auto (Urine sed) [#/Area] 1-2 [HPF] 0-4 [facility] Automated leukocytes count i n urine sediment (number/area)Ordered By: Trace Solimanlaurel on 04-06-2023 WBC Auto (Urine sed) [#/Area] 3-4 [HPF] 0-4 [facility] Basic Metabolic Panelon 03-19 Anion gap [Moles/Vol] 12.4 mmol/L Normal 6.0-15.0 [facility] Comment on above: Performed By: #### A MY, CBC, LIPASE, HEPATIC, BMP ####[address] Calcium [Mass/Vol] 9.1 mg/dL Normal 8.6-10.3 [facility] Comment on above: Performed By: #### A MY, CBC, LIPASE, HEPATIC, BMP ####[address] Chloride [Moles/Vol] 109 mmol/L High 98-107 [facility] Comment on above: Performed By: #### A MY, CBC, LIPASE, HEPATIC, BMP ####[address] CO2 [Moles/Vol] 23.3 mmol/L Normal 21.0-31.0 [facility] Comment on above: Performed By: #### A MY, CBC, LIPASE, HEPATIC, BMP ####[address] Creatinine [Mass/Vol] 0.86 mg/dL Normal 0.60-1.20 [facility] Comment on above: Performed By: #### A MY, CBC, LIPASE, HEPATIC, BMP ####[address] Creatinine Clr Calc Pharmacy 98.98 Normal [facility] Comment on above: Performed By: #### A MY, CBC, LIPASE, HEPATIC, BMP ####[address] GFR/1.73 sq M.predicted MDRD (S/P/Bld) [Vol rate/Area] mL/min/{1.73_m2} Normal [facility] Comment on above: Performed By: #### A MY, CBC, LIPASE, HEPATIC, BMP ####[place] [address] [address] Glucose [Mass/Vol] 77 mg/dL Normal 70-100 [facility] Comment on above: Result Comment: [place] Glucose Reference Range is dependent on time and content of last meal. Glucose of more than 200 mg/dL in a nonstressed, ambulatory subject supports the diagnosis of Diabetes Mellitus. ADA recommended reference range Performed By: #### A MY, CBC, LIPASE, HEPATIC, BMP ####[place] [address] Potassium [Moles/Vol] 3.7 mmol/L Normal 3.5-5.1 [facility] Comment on above: Performed By: #### A MY, CBC, LIPASE, HEPATIC, BMP ####[address] Sodium [Moles/Vol] 141 mmol/L Normal 136-145 [facility] Comment on above: Performed By: #### A MY, CBC, LIPASE, HEPATIC, BMP ####[address] Urea nitrogen [Mass/Vol] 10 mg/dL Normal 7-25 [facility] Comment on above: Performed By: #### A MY, CBC, LIPASE, HEPATIC, BMP ####[address] Basophils Auto (Bld) [#/Vol] Ordered By: Trace Lowery on 04-06-2023 Basophils (Bld) [#/Vol] 0.0 10*3/uL 0.0-0.2 [facility] Basophils/100 WBC Auto (Bld) Ordered By: Trace Lowery on 04-06-2023 Basophils/100 WBC (Bld) 1.0 % . [facility] Bilirubin Test strip Ql (U)O rdered By: Trace Lowery on 04-06-2023 Bilirubin Ql (U) Negative Negative [facility] Bilirubin.direct [Mass/volum e] in Serum or PlasmaOrdered By: Trace Lowery on 04-06-2023 Bilirubin.direct [Mass/Vol] 0.10 mg/dL 0.03-0.18 [facility] Bilirubin.total [Mass/volume ] in Serum or PlasmaOrdered By: Trace Solimanore on 04-06-2023 Bilirubin [Mass/Vol] 0.4 mg/dL 0.3-1.[address] [facility] [address] abdomen pelvis w conon CT abdomen pelvis w con [facility] [employer] [address] [place] [address] CT Scan Report Signed Patient: Abbey Garcia MR#: [id number] : 1990 Acct:[id number] Age/Sex: 33 / F ADM Date: 04/06/23 Loc: ER Room: Type: [facility] ER Attending Dr: Copies to: AGA Sy Ordering Provider: AGA Sy Date of Service: 04/06/23 CT/CT abdomen pelvis w con: abd pain vomiting CT ABDOMEN AND PELVIS WITH CONTRAST CLINICAL DATA: Abdominal pain and vomiting. COMPARISON: 02/13/2023 Spiral images were obtained through the abdomen and pelvis following 90 mL Isovue-300. This CT exam was performed using one or more following dose reduction techniques: Automated exposure control, adjustment of the mA and/or kV according to patient size, or use of iterative reconstruction technique. Limited cuts through the lung bases show minor atelectasis and/or scarring. The gallbladder is surgically absent. That may be the etiology of intra and extra hepatic biliary dilatation. No common duct stones are identified. There are multiple scattered hepatic cysts which were also seen previously. The spleen, pancreas and adrenal glands show no acute findings. There are symmetric renal nephrograms, without hydronephrosis. The abdominal aorta is normal caliber. No lymphadenopathy or ascites is seen. There are postoperative changes of bariatric surgery. There is no significant small bowel dilatation. There is some loops that contain fluid. There is air and fluid within the ascending and transverse colon. The descending colon is decompressed. The bony structures are intact. Images through the pelvis show prior appendectomy. There is no dilated small bowel however some loops containing fluid.. There is a small amount of fluid within the distal colon. No diverticular disease is seen. No bladder abnormalities are identified for the degree of distention. There is prior hysterectomy. There is a trace amount of free fluid at the posterior cul-de-sac. CT/CT abdomen pelvis w con IMPRESSION: HEPATIC CYSTS. CONTINUED MILD BILIARY PROMINENCE THAT MAY RELATE TO PREVIOUS CHOLECYSTECTOMY. NONSPECIFIC, NONDISTENDED FLUID CONTAINING BOWEL. NO OBSTRUCTIVE UROPATHY. NO OTHER ACUTE FINDINGS. Impression dictated by: Maricruz Hutchinson M.D.04/06/2023 1:50 PM Dictation Location: [place] [address] Transcribed By: [facility] 04/06/23 1350 Dictated By: Maricruz Hutchinson MD 04/06/23 1341 Signed By: 04/06/23 1350 Normal [facility] Calcium [Mass/volume] in Ser um or PlasmaOrdered By: Trace Lowery on 04-06-2023 Calcium [Mass/Vol] 9.1 mg/dL 8.6-10.3 [facility] Carbon dioxide, total [Moles /volume] in Serum or PlasmaOrdered By: Trace Lowery on 04-06-2023 CO2 [Moles/Vol] 23.3 mmol/L 21.0-31.0 [facility] Chloride [Moles/volume] in S elder or PlasmaOrdered By: Trace Lowery on 04-06-2023 Chloride [Moles/Vol] 109 mmol/L 98-107 [facility] Color Auto (U)Ordered By: Rosalina Lowery on 04-06-2023 Color (U) Yellow Yellow [facility] Complete Blood Count Auto Di ffon 04-06-2023 Basophils (Bld) [#/Vol] 0.0 10*3/uL Normal 0.0-0.2 [facility] Comment on above: Result Comment: PERF ORMED BY: [facility] [address] [place] [address] PATHOLOGIST PACKAGING DESIGNER BAUTISTA BAKER M.D. Performed By: #### A MY, CBC, LIPASE, HEPATIC, BMP ####[address] Basophils/100 WBC (Bld) 1.0 % Normal . [facility] Comment on above: Performed By: #### A MY, CBC, LIPASE, HEPATIC, BMP ####[address] Eosinophils (Bld) [#/Vol] 0.1 10*3/uL Normal 0.0-0.45 [facility] Comment on above: Performed By: #### A MY, CBC, LIPASE, HEPATIC, BMP ####[address] Eosinophils/100 WBC (Bld) 3.1 % Normal . [facility] Comment on above: Performed By: #### A MY, CBC, LIPASE, HEPATIC, BMP ####[address] Erythrocyte distribution width (RBC) [Ratio] 13.9 % Normal 11.9-15.3 [facility] Comment on above: Performed By: #### A MY, CBC, LIPASE, HEPATIC, BMP ####[address] Hematocrit (Bld) [Volume fraction] 37.4 % Normal 34.0-46.4 [facility] Comment on above: Performed By: #### A MY, CBC, LIPASE, HEPATIC, BMP ####[address] Hemoglobin (Bld) [Mass/Vol] 12.8 g/dL Normal 11.8-15.4 [facility] Comment on above: Performed By: #### A MY, CBC, LIPASE, HEPATIC, BMP ####[address] Lymphocytes (Bld) [#/Vol] 1.4 10*3/uL Normal 1.00-4.8 [facility] Comment on above: Performed By: #### A MY, CBC, LIPASE, HEPATIC, BMP ####[address] Lymphocytes/100 WBC (Bld) 37.6 % Normal . [facility] Comment on above: Performed By: #### A MY, CBC, LIPASE, HEPATIC, BMP ####[address] MCH (RBC) [Entitic mass] 30.6 pg Normal 24.7-34.3 [facility] Comment on above: Performed By: #### A MY, CBC, LIPASE, HEPATIC, BMP ####[address] MCV (RBC) [Entitic vol] 89.7 fL Normal 80-100 [facility] Comment on above: Performed By: #### A MY, CBC, LIPASE, HEPATIC, BMP ####[address] Mean Corpuscular HGB Conc 34.2 g/dL Normal 32.0-35.0 [facility] Comment on above: Performed By: #### A MY, CBC, LIPASE, HEPATIC, BMP ####[address] Monocytes (Bld) [#/Vol] 0.3 10*3/uL Normal 0.0-0.8 [facility] Comment on above: Performed By: #### A MY, CBC, LIPASE, HEPATIC, BMP ####[address] Monocytes/100 WBC (Bld) 15.98 % Normal 0.00-20.00 [facility] Comment on above: Performed By: #### A MY, CBC, LIPASE, HEPATIC, BMP ####[address] Monocytes/100 WBC (Bld) 6.7 % Normal . [facility] Comment on above: Performed By: #### A MY, CBC, LIPASE, HEPATIC, BMP ####[address] Neutrophils (Bld) [#/Vol] 2.0 10*3/uL Normal 1.8-7.7 [facility] Comment on above: Performed By: #### A MY, CBC, LIPASE, HEPATIC, BMP ####[address] Neutrophils/100 WBC (Bld) 51.6 % Normal . [facility] Comment on above: Performed By: #### A MY, CBC, LIPASE, HEPATIC, BMP ####[address] NRBC% 0.1 /100{WBC} Normal 0-0.5 [facility] Comment on above: Performed By: #### A MY, CBC, LIPASE, HEPATIC, BMP ####[address] Platelet mean volume (Bld) [Entitic vol] 9.7 fL Normal 6.3-10.7 [facility] Comment on above: Performed By: #### A MY, CBC, LIPASE, HEPATIC, BMP ####[address] Platelets (Bld) [#/Vol] 210 10*3/uL Normal 150-450 [facility] Comment on above: Performed By: #### A MY, CBC, LIPASE, HEPATIC, BMP ####[address] RBC (Bld) [#/Vol] 4.17 10*6/uL Normal 3.60-5.00 [facility] Comment on above: Performed By: #### A MY, CBC, LIPASE, HEPATIC, BMP ####[address] WBC (Bld) [#/Vol] 3.8 10*3/uL Normal 3.8-11.6 [facility] Comment on above: Performed By: #### A MY, CBC, LIPASE, HEPATIC, BMP ####[address] Creatinine [Mass/volume] in Serum or PlasmaOrdered By: Trace Lowery on 04-06-2023 Creatinine [Mass/Vol] 0.86 mg/dL 0.60-1.20 [facility] Dipstick and Microscopicon 0 04-06-2023 Appearance (U) Cloudy Critically abnormal Clear [facility] Comment on above: Order Comment: Name Collection Type:: Clean-Voided Midstream Performed By: #### A DDONUAPLUS ####[place] [id number] [place] [address] [facility] Bacteria,Urine None Seen Normal None Seen [facility] Comment on above: Order Comment: Name Collection Type:: Clean-Voided Midstream Performed By: #### A DDONUAPLUS ####[address] [address] [facility] Bilirubin,Urine Negative Normal Negative [facility] Comment on above: Order Comment: Name Collection Type:: Clean-Voided Midstream Performed By: #### A DDONUAPLUS ####[place] [id number] [facility] Color (U) Yellow Normal Yellow [facility] Comment on above: Order Comment: Name Collection Type:: Clean-Voided Midstream Performed By: #### A DDONUAPLUS ####[address] [address] [facility] Glucose Ql (U) Normal Normal Normal [facility] Comment on above: Order Comment: Name Collection Type:: Clean-Voided Midstream Performed By: #### A DDONUAPLUS ####[address] [address] [facility] Hyaline Casts,Urine 0-8 Normal 0-8 [facility] Comment on above: Order Comment: Name Collection Type:: Clean-Voided Midstream Result Comment: PERF ORMED BY: [facility] [address] [place], [place] [id number] PATHOLOGIST PACKAGING DESIGNER BAUTISTA BAKER M.D. Performed By: #### A DDONUAPLUS ####[address] [address] [facility] Ketones Ql (U) Trace High Negative [facility] Comment on above: Order Comment: Name Collection Type:: Clean-Voided Midstream Performed By: #### A DDONUAPLUS ####[address] [address] [facility] Leukocyte esterase Test strip Ql (U) Negative Normal Negative [facility] Comment on above: Order Comment: Name Collection Type:: Clean-Voided Midstream Performed By: #### A DDONUAPLUS ####[address] [address] [facility] Nitrite,Urine Negative Normal Negative [facility] Comment on above: Order Comment: Name Collection Type:: Clean-Voided Midstream Performed By: #### A DDONUAPLUS ####[address] [address] [facility] Occult Blood,Urine Negative Normal Negative [facility] Comment on above: Order Comment: Name Collection Type:: Clean-Voided Midstream Result Comment: PERF ORMED BY: [facility] [address] [facility] [place] [id number] PATHOLOGIST PACKAGING DESIGNER BAUTISTA BAKER M.D. Performed By: #### A DDONUAPLUS ####[address] [address] [facility] pH (U) 7.5 [pH] Normal 5.0-9.0 [facility] Comment on above: Order Comment: Name Collection Type:: Clean-Voided Midstream Performed By: #### A DDONUAPLUS ####[address] [address] [facility] Protein,Urine Negative Normal Negative [facility] Comment on above: Order Comment: Name Collection Type:: Clean-Voided Midstream Performed By: #### A DDONUAPLUS ####[address] [address] [facility] RBC,Urine 1-2 Normal 0-4 [facility] Comment on above: Order Comment: Name Collection Type:: Clean-Voided Midstream Performed By: #### A DDONUAPLUS ####[place] [id number] [facility] Specificy [place],Urine 1.026 Normal 1.001-1.030 [facility] Comment on above: Order Comment: Name Collection Type:: Clean-Voided Midstream Performed By: #### A DDONUAPLUS ####[place] [address] [place] [address] [facility] Squamous Epithelial Cell,Urine 3-4 High 0-2 [facility] Comment on above: Order Comment: Name Collection Type:: Clean-Voided Midstream Performed By: #### A DDONUAPLUS ####[address] [address] [facility] Urobilinogen,Urine Normal Normal Normal [facility] Comment on above: Order Comment: Name Collection Type:: Clean-Voided Midstream Performed By: #### A DDONUAPLUS ####[place] [address] [place] [address] [facility] WBC,Urine 3-4 Normal 0-4 [facility] Comment on above: Order Comment: Name Collection Type:: Clean-Voided Midstream Performed By: #### A DDONUAPLUS ####[address] [address] [facility] Eosinophils Auto (Bld) [#/Vo l]Ordered By: Trace Lowery on 04-06-2023 Eosinophils (Bld) [#/Vol] 0.1 10*3/uL 0.0-0.45 [facility] Eosinophils/100 WBC Auto (Bl d)Ordered By: Trace Lowery on 04-06-2023 Eosinophils/100 WBC (Bld) 3.1 % . [facility] Erythrocyte distribution wid th Auto (RBC) [Ratio]Ordered By: Trace Lowery on 04-06-2023 Erythrocyte distribution width (RBC) [Ratio] 13.9 % 11.9-15.3 [facility] Globulin Calc (S) [Mass/Vol] Ordered By: Trace Lowery on 04-06-2023 Globulin (S) [Mass/Vol] 2.6 g/dL [facility] Glucose [Mass/volume] in Ser um or PlasmaOrdered By: Trace Loewry on 02-20-2024 Glucose [Mass/Vol] 77 mg/dL 70-100 [facility] Comment on above: ADA recommended refe rence rangeRandom Glucose Reference Range is dependent on time and content of last meal. Glucose of more than 200 mg/dL in a nonstressed, ambulatory subject supports the diagnosis of Diabetes Mellitus. HCG ( test) IA.rapi d Ql (U)Ordered By: Trace Bullimore on 04-06-2023 HCG ( test) Ql (U) Negative [facility] HCG,Urineon 04-06-2023 Beta HCG ( test) Ql (U) Negative Normal [facility] Comment on above: Result Comment: PERF ORMED BY: [facility] [address] [place] [id number] PATHOLOGIST PACKAGING DESIGNER BAUTISTA BAKER M.D. Performed By: #### U HCG ####[place] [id number] [facility] Hematocrit Auto (Bld) [Volum e fraction]Ordered By: Trace Leosimlaurel on 04-06-2023 Hematocrit (Bld) [Volume fraction] 37.4 % 34.0-46.4 [facility] Hemoglobin [Mass/volume] in BloodOrdered By: Tracetamiko Lowery on 04-06-2023 Hemoglobin (Bld) [Mass/Vol] 12.8 g/dL 11.8-15.4 [facility] Hepatic Panelon 04-06-2023 Albumin [Mass/Vol] 4.5 g/dL Normal 3.5-5.7 [facility] Comment on above: Performed By: #### A MY, CBC, LIPASE, HEPATIC, BMP ####[address] [address] [facility] Albumin/Globulin [Mass ratio] 1.7 {ratio} Normal [facility] Comment on above: Performed By: #### A MY, CBC, LIPASE, HEPATIC, BMP ####[place] [address] [place] [address] [facility] ALP [Catalytic activity/Vol] 48 U/L Normal 34-104 [facility] Comment on above: Performed By: #### A MY, CBC, LIPASE, HEPATIC, BMP ####[place] [id number] [address] ALT [Catalytic activity/Vol] 21 U/L Normal 7-52 [facility] Comment on above: Performed By: #### A MY, CBC, LIPASE, HEPATIC, BMP ####[address] AST [Catalytic activity/Vol] 28 U/L Normal 13-39 [facility] Comment on above: Performed By: #### A MY, CBC, LIPASE, HEPATIC, BMP ####[address] Bilirubin [Mass/Vol] 0.4 mg/dL Normal 0.3-1.0 [facility] Comment on above: Performed By: #### A MY, CBC, LIPASE, HEPATIC, BMP ####[address] Bilirubin,Indirect 0.3 mg/dL Normal [facility] Comment on above: Performed By: #### A MY, CBC, LIPASE, HEPATIC, BMP ####[address] Bilirubin.indirect [Mass/Vol] 0.10 mg/dL Normal 0.03-0.18 [facility] Comment on above: Performed By: #### A MY, CBC, LIPASE, HEPATIC, BMP ####[address] Globulin (S) [Mass/Vol] 2.6 g/dL Normal [facility] Comment on above: Performed By: #### A MY, CBC, LIPASE, HEPATIC, BMP ####[place] [phone] [facility] Protein [Mass/Vol] 7.1 g/dL Normal 6.4-8.9 [facility] Comment on above: Performed By: #### A MY, CBC, LIPASE, HEPATIC, BMP ####[place] [id number] [facility] Ketones Auto test strip (U) [Mass/Vol]Ordered By: Trace Lowery on 04-06-2023 Ketones (U) [Mass/Vol] Trace Negative [facility] Laboratory - UrinalysisOrder ed By: Trace Bullimore on 04-06-2023 Hyaline casts LM Ql (Urine sed) 0-8 [LPF] 0-8 [facility] Leukocytes [#/volume] correc darvin for nucleated erythrocytes in Blood by Automated counOrdered By: Trace Bullimore on 04-06-2023 WBC corrected for nucl RBC Auto (Bld) [#/Vol] 3.8 10*3/uL 3.8-11.6 [facility] Lipaseon 04-06-2023 Lipase [Catalytic activity/Vol] 86.0 U/L High 11.0-82.0 [facility] Comment on above: Result Comment: PERF ORMED BY: [facility] [address] [place] [address] PATHOLOGIST PACKAGING DESIGNER BAUTISTA BAKER M.D. Performed By: #### A MY, CBC, LIPASE, HEPATIC, BMP ####[facility] [id number] [place] [address] [facility] Lipase [Enzymatic activity/v olume] in Serum or PlasmaOrdered By: Trace Leosimore on 04-06-2023 Lipase [Catalytic activity/Vol] 86.0 U/L 11.0-82.0 [facility] Lymphocytes Auto (Bld) [#/Vo l]Ordered By: Trace Bullimore on 04-06-2023 Lymphocytes (Bld) [#/Vol] 1.4 10*3/uL 1.00-4.8 [facility] Lymphocytes/100 WBC Auto (Bl d)Ordered By: Tracetamiko Leosimore on 04-06-2023 Lymphocytes/100 WBC (Bld) 37.6 % . [facility] MCH Auto (RBC) [Entitic mass ]Ordered By: Trace Bullimore on 04-06-2023 MCH (RBC) [Entitic mass] 30.6 pg 24.7-34.3 [facility] MCHC Auto (RBC) [Mass/Vol]Or dered By: Trace Bullimore on 04-06-2023 MCHC (RBC) [Mass/Vol] 34.2 g/dL 32.0-35.0 [facility] MCV Auto (RBC) [Entitic vol] Ordered By: Trace Lowery on 04-06-2023 MCV (RBC) [Entitic vol] 89.7 fL 80-100 [facility] Monocyte distribution width [Entitic volume] in Blood by AutomatedOrdered By: Trace Leosimore on 04-06-2023 Monocyte distribution width Auto (Bld) [Entitic vol] 15.98 % 0.00-20.00 [facility] Monocytes Auto (Bld) [#/Vol] Ordered By: Trace Leosimore on 04-06-2023 Monocytes (Bld) [#/Vol] 0.3 10*3/uL 0.0-0.8 [facility] Monocytes/100 WBC Auto (Bld) Ordered By: Trace Leosimore on 04-06-2023 Monocytes/100 WBC (Bld) 6.7 % . [facility] Neutrophils Auto (Bld) [#/Vo l]Ordered By: Trace Solimanore on 04-06-2023 Neutrophils (Bld) [#/Vol] 2.0 10*3/uL 1.8-7.7 [facility] Neutrophils/100 WBC Auto (Bl d)Ordered By: Trace Leosimore on 04-06-2023 Neutrophils/100 WBC (Bld) 51.6 % . [facility] Nitrite Test strip Ql (U)Ord ered By: Tracetamiko Lowery on 04-06-2023 Nitrite Ql (U) Negative Negative [facility] No Panel InformationOrdered By: Trace Lowery on 04-06-2023 Estimated GFR (CKD-EPI) > 60.0 mL/Min [facility] Creatinine Clearance (Chem 98.98 [facility] Nucleated erythrocytes [Pres ence] in Blood by Automated countOrdered By: Trace Lowery on 04-06-2023 Nucleated RBC Auto Ql (Bld) 0.1 /100{WBC} 0-0.5 [facility] Platelet mean volume Auto (B ld) [Entitic vol]Ordered By: Trace Leosimore on 04-06-2023 Platelet mean volume (Bld) [Entitic vol] 9.7 fL 6.3-10.7 [facility] Platelets Auto (Bld) [#/Vol] Ordered By: Trace Leosimore on 04-06-2023 Platelets (Bld) [#/Vol] 210 10*3/uL 150-450 [facility] Potassium [Moles/volume] in Serum or PlasmaOrdered By: Trace Bullimore on 04-06-2023 Potassium [Moles/Vol] 3.7 mmol/L 3.5-5.1 [facility] Protein Auto test strip (U) [Mass/Vol]Ordered By: Tracetamiko Leosimore on 04-06-2023 Protein (U) [Mass/Vol] Negative Negative [facility] Protein [Mass/volume] in Ser um or PlasmaOrdered By: Trace Bullimore on 04-06-2023 Protein [Mass/Vol] 7.1 g/dL 6.4-8.9 [facility] RBC Auto (Bld) [#/Vol]Ordere d By: Trace Bullimore on 04-06-2023 RBC (Bld) [#/Vol] 4.17 10*6/uL 3.60-5.00 [facility] Serum or plasma albumin/glob ulin mass ratioOrdered By: Tracetamiko Leosimore on 04-06-2023 Albumin/Globulin [Mass ratio] 1.7 {ratio} [facility] Serum or plasma anion gap de terminationOrdered By: Trace Leosimore on 04-06-2023 Anion gap [Moles/Vol] 12.4 mmol/L 6.0-15.0 [facility] Serum or plasma non-glucuron idated bilirubin measurement (mass/volume)Ordered By: Tracetamiko Leosimore on 04-06-2023 Bilirubin.indirect [Mass/Vol] 0.3 mg/dL [facility] Sodium [Moles/volume] in Ser um or PlasmaOrdered By: Trace Bullimore on 04-06-2023 Sodium [Moles/Vol] 141 mmol/L 136-145 [facility] Specific gravity Auto test s trip (U) [Rel density]Ordered By: Tracetamiko Leosimore on 04-06-2023 Specific gravity (U) [Rel density] 1.026 1.001-1.030 [facility] Squamous epithelial cells de tection in urine sediment by light microscopyOrdered By: Trace Lowery on 04-06-2023 Epithelial cells.squamous LM Ql (Urine sed) 3-4 [HPF] 0-2 [facility] Urea nitrogen [Mass/volume] in Serum or PlasmaOrdered By: Trace Lowery on 04-06-2023 Urea nitrogen [Mass/Vol] 10 mg/dL 7-25 [facility] Urine bacteria detection by automated methodOrdered By: Trace Lowery on 04-06-2023 Bacteria Auto Ql (U) None seen None Seen [facility] Urine clarity by refractomet ry automatedOrdered By: Trace Lowery on 04-06-2023 Clarity Refractometry automated (U) Cloudy Clear [facility] Urine glucose measurement by automated test strip (mass/volume)Ordered By: Trace Lowery on 04-06-2023 Glucose Auto test strip (U) [Mass/Vol] Normal mg/dL Normal [facility] Urine hemoglobin detection b y automated test stripOrdered By: Trace Lowery on 04-06-2023 Hemoglobin Auto test strip Ql (U) Negative Negative [facility] Urine leukocyte esterase det ection by automated test stripOrdered By: Trace Lowery on 04-06-2023 Leukocyte esterase Auto test strip Ql (U) Negative Negative [facility] Urobilinogen Auto test strip (U) [Mass/Vol]Ordered By: Trace Lowery on 04-06-2023 Urobilinogen (U) [Mass/Vol] Normal mg/dL Normal [facility] WBC Auto (Bld) [#/Vol]Ordere d By: Trace Lowery on 04-06-2023 WBC (Bld) [#/Vol] 3.8 10*3/uL 3.8-11.6 [facility] pH Auto test strip (U)Ordere d By: Trace Lowery on 04-06-2023 pH (U) 7.5 [pH] 5.0-9.0 [facility] BMPon 04-02-2023 Anion gap [Moles/Vol] 10 mmol/L Normal 6-16 [facility] Comment on above: Performed By: #### 1 [id number], 2787893, 91795766, 05698369, 82986235, 5799363, 9562759, 8382231 ####[facility] [address] [place] [address] BUN/Creat Ratio 14 No Units Normal 10-20 [facility] Comment on above: Performed By: #### 1 [id number], 1175637, 76017742, 38309859, 83446184, 6188913, 9994273, 9824032 ####[facility] [address] [place] [address] Calcium [Mass/Vol] 8.4 mg/dL Low 8.9-11.1 [facility] Comment on above: Performed By: #### 1 [id number], 4834373, 12636348, 79055254, 42443586, 2672591, 9334789, 6123073 ####[facility] [address] [place] [address] Chloride [Moles/Vol] 111 mmol/L Normal 101-111 [facility] Comment on above: Performed By: #### 1 0736691, 4673197, 37706425, 25762326, 44097246, 7122086, 7653459, 9826042 ####[facility] [address] [place] [address] CO2 [Moles/Vol] 21 mmol/L Normal 21-31 [facility] Comment on above: Performed By: #### 1 3433928, 9257453, 41863362, 57631073, 67605237, 2477641, 3626975, 1507300 ####[facility] [address] [place] [address] Creatinine [Mass/Vol] 0.7 mg/dL Normal 0.5-1.3 [facility] Comment on above: Performed By: #### 1 5578119, 9758533, 30237288, 58528773, 96859501, 9086449, 3180471, 2294254 ####[facility] [address] [place] [address] Glucose [Mass/Vol] 86 mg/dL Normal 55-199 [facility] Comment on above: Performed By: #### 1 9174975, 0884665, 53741440, 27694757, 39882927, 2817318, 2782818, 5277114 ####[facility] [address] [place] [address] Potassium [Moles/Vol] 3.9 mmol/L Normal 3.5-5.3 [facility] Comment on above: Performed By: #### 1 0491745, 2535282, 15403366, 60816359, 38438331, 7981805, 7820082, 6945603 ####[facility] [address] [place] [address] Sodium [Moles/Vol] 138 mmol/L Normal 135-145 [facility] Comment on above: Performed By: #### 1 1273523, 1954628, 29211305, 69258450, 75228221, 9980643, 7618342, 2414239 ####[facility] [address] [place] [address] Urea nitrogen [Mass/Vol] 10 mg/dL Normal 5-21 [facility] Comment on above: Performed By: #### 1 4796852, 5685048, 64754386, 05098606, 46775063, 0652822, 2727035, 1073486 ####[facility] [address] [place] [address] BNPon 04-02-2023 Int Ctr BNP Pass Normal [facility] Comment on above: Order Comment: 2nd d raw rejected due to clotted speciment. Phlebotomists notified of redraw by message. [facility] 04/02/2023 12:28:38 EST Performed By: #### 1 0314173, 5263137, 05290989, 38284286, 52079247, 6849279, 3651950, 9218720 ####[facility] [address] [place] [address] Natriuretic peptide B (Bld) [Mass/Vol] 25 pg/mL Normal 5-80 [facility] Comment on above: Order Comment: 2nd d raw rejected due to clotted speciment. Phlebotomists notified of redraw by message. [facility] 04/02/2023 12:28:38 EST Performed By: #### 1 8411353, 2295100, 81100635, 54243274, 53870621, 9512891, 0980375, 5198608 ####[facility] [address] [place] [address] CBC w/ Auto Diffon 4 Basophil Absolute 0.0 E9/L Normal 0.0-0.2 [facility] Comment on above: Order Comment: speci men rejected due to clot. Phlebotomists notified by message. [facility] 04/02/2023 11:56:19 EST\2nd draw rejected due to clot. Phlebotomists notified by message. [facility] 04/02/2023 12:27:56 EST Performed By: #### 1 5259327, 1494765, 40036125, 68118525, 54016314, 4255471, 1005571, 0597915 ####[facility] [address] [place] [address] Basophils/100 WBC (Bld) 0.8 % Normal 0.0-2.0 [facility] Comment on above: Order Comment: speci men rejected due to clot. Phlebotomists notified by message. [facility] 04/02/2023 11:56:19 EST\2nd draw rejected due to clot. Phlebotomists notified by message. [facility] 04/02/2023 12:27:56 EST Performed By: #### 1 2593313, 8107502, 02980457, 10681688, 73575296, 4291736, 0717911, 4901558 ####[facility] [address] [place] [address] Eos Absolute 0.2 E9/L Normal 0.0-0.5 [facility] Comment on above: Order Comment: speci men rejected due to clot. Phlebotomists notified by message. [facility] 04/02/2023 11:56:19 EST\2nd draw rejected due to clot. Phlebotomists notified by message. [facility] 04/02/2023 12:27:56 EST Performed By: #### 1 1106366, 8900104, 78229032, 64887846, 92514908, 6126562, 0054828, 1423793 ####[facility] [address] [place] [address] Eosinophils/100 WBC (Bld) 3.1 % Normal 0.0-8.0 [facility] Comment on above: Order Comment: speci men rejected due to clot. Phlebotomists notified by message. [facility] 04/02/2023 11:56:19 EST\2nd draw rejected due to clot. Phlebotomists notified by message. [facility] 04/02/2023 12:27:56 EST Performed By: #### 1 1137236, 2340215, 78025105, 79922536, 28329281, 5060376, 2147994, 7685830 ####[facility] [address] [place] [address] Erythrocyte distribution width (RBC) [Ratio] 14.0 % Normal 10.9-14.2 [facility] Comment on above: Order Comment: speci men rejected due to clot. Phlebotomists notified by message. [facility] 04/02/2023 11:56:19 EST\2nd draw rejected due to clot. Phlebotomists notified by message. [facility] 04/02/2023 12:27:56 EST Performed By: #### 1 4283539, 3408590, 58707455, 03466553, 32626107, 4474137, 1660949, 5802154 ####[facility] [address] [place] [address] Hematocrit (Bld) [Volume fraction] 38.0 % Normal 34.0-46.0 [facility] Comment on above: Order Comment: speci men rejected due to clot. Phlebotomists notified by message. [facility] 04/02/2023 11:56:19 EST\2nd draw rejected due to clot. Phlebotomists notified by message. [facility] 04/02/2023 12:27:56 EST Performed By: #### 1 4952890, 4533635, 64267387, 71388283, 33631383, 8006438, 4958628, 8855190 ####[facility] [address] [place] [address] Hemoglobin (Bld) [Mass/Vol] 12.8 g/dL Normal 12.0-16.0 [facility] Comment on above: Order Comment: speci men rejected due to clot. Phlebotomists notified by message. [facility] 04/02/2023 11:56:19 EST\2nd draw rejected due to clot. Phlebotomists notified by message. [facility] 04/02/2023 12:27:56 EST Performed By: #### 1 2315207, 3301978, 20370707, 11508652, 38679551, 0661047, 4403281, 2975303 ####[facility] [address] [place] [address] Lymph Absolute 1.8 E9/L Normal 1.0-4.0 [facility] Comment on above: Order Comment: speci men rejected due to clot. Phlebotomists notified by message. [facility] 04/02/2023 11:56:19 EST\2nd draw rejected due to clot. Phlebotomists notified by message. [facility] 04/02/2023 12:27:56 EST Performed By: #### 1 3055816, 0902842, 34890439, 90570138, 24543625, 0056160, 5359707, 7227515 ####[facility] [address] [place] [address] Lymphocytes/100 WBC (Bld) 34.1 % Normal 14.0-50.0 [facility] Comment on above: Order Comment: speci men rejected due to clot. Phlebotomists notified by message. [facility] 04/02/2023 11:56:19 EST\2nd draw rejected due to clot. Phlebotomists notified by message. [facility] 04/02/2023 12:27:56 EST Performed By: #### 1 8266906, 5257202, 52593657, 29158914, 26542631, 8862017, 0782504, 9176837 ####[facility] [address] [place] [address] MCH (RBC) [Entitic mass] 29.8 pg Normal 27.0-34.0 [facility] Comment on above: Order Comment: speci men rejected due to clot. Phlebotomists notified by message. [facility] 04/02/2023 11:56:19 EST\2nd draw rejected due to clot. Phlebotomists notified by message. [facility] 04/02/2023 12:27:56 EST Performed By: #### 1 [id number], 5299836, 02888361, 53699106, 09346991, 2218140, 5053262, 5570312 ####[address] [address] MCHC (RBC) [Mass/Vol] 33.5 g/dL Normal 31.4-36.0 [facility] Comment on above: Order Comment: speci men rejected due to clot. Phlebotomists notified by message. [facility] 04/02/2023 11:56:19 EST\2nd draw rejected due to clot. Phlebotomists notified by message. [facility] 04/02/2023 12:27:56 EST Performed By: #### 1 8509656, 1139160, 07037418, 18383989, 73490478, 8135690, 6359376, 6851659 ####[facility] [address] [place] [address] MCV (RBC) [Entitic vol] 88.9 fL Normal 80.0-100.0 [facility] Comment on above: Order Comment: speci men rejected due to clot. Phlebotomists notified by message. [facility] 04/02/2023 11:56:19 EST\2nd draw rejected due to clot. Phlebotomists notified by message. [facility] 04/02/2023 12:27:56 EST Performed By: #### 1 [id number], 6263912, 84721384, 90377331, 26382698, [id number], 3736239, 4154508 ####[facility] [address] [place] [address] Lewis Absolute 0.4 E9/L Normal 0.2-1.0 [facility] Comment on above: Order Comment: speci men rejected due to clot. Phlebotomists notified by message. [facility] 04/02/2023 11:56:19 EST\2nd draw rejected due to clot. Phlebotomists notified by message. [facility] 04/02/2023 12:27:56 EST Performed By: #### 1 [id number], 0034584, 53582966, 85551885, 05377993, 3858114, 9361646, 0562412 ####[facility] [address] [place] [address] Monocytes/100 WBC (Bld) 7.4 % Normal 4.0-14.0 [facility] Comment on above: Order Comment: speci men rejected due to clot. Phlebotomists notified by message. [facility] 04/02/2023 11:56:19 EST\2nd draw rejected due to clot. Phlebotomists notified by message. [facility] 04/02/2023 12:27:56 EST Performed By: #### 1 [id number], 8917537, 17673907, 02244307, 09996943, 9159213, 1689033, 1796949 ####[facility] [address] [place] [address] Neutro Absolute 2.9 E9/L Normal 2.0-7.5 [facility] Comment on above: Order Comment: speci men rejected due to clot. Phlebotomists notified by message. [facility] 04/02/2023 11:56:19 EST\2nd draw rejected due to clot. Phlebotomists notified by message. [facility] 04/02/2023 12:27:56 EST Performed By: #### 1 1392796, 0914019, 43125192, 84165856, 38743291, 4812892, 5174490, 6353681 ####[facility] [address] [place] [address] Neutro Auto 54.6 % Normal 36.0-75.0 [facility] Comment on above: Order Comment: speci men rejected due to clot. Phlebotomists notified by message. [facility] 04/02/2023 11:56:19 EST\2nd draw rejected due to clot. Phlebotomists notified by message. [facility] 04/02/2023 12:27:56 EST Performed By: #### 1 0176831, 3719309, 13091106, 09555919, 42692581, 4781159, 3741125, 3562047 ####[address] [place] [address] Platelet 204.0 E9/L Normal 150.0-500.0 [facility] Comment on above: Order Comment: speci men rejected due to clot. Phlebotomists notified by message. [facility] 04/02/2023 11:56:19 EST\2nd draw rejected due to clot. Phlebotomists notified by message. [facility] 04/02/2023 12:27:56 EST Result Comment: Veri fied with slide review Performed By: #### 1 [id number], 7915394, 41512915, 94054003, 16183858, 5507619, 8023568, 2495277 ####[address] [address] Platelet mean volume (Bld) [Entitic vol] 9.8 fL Normal 6.4-10.8 [facility] Comment on above: Order Comment: speci men rejected due to clot. Phlebotomists notified by message. [facility] 04/02/2023 11:56:19 EST\2nd draw rejected due to clot. Phlebotomists notified by message. [facility] 04/02/2023 12:27:56 EST Performed By: #### 1 2829222, 3512402, 98670763, 47982340, 54721864, 8036554, 0165246, 7107806 ####[facility] [address] [place] [address] RBC 4.3 E12/L Normal 4.3-5.9 [facility] Comment on above: Order Comment: speci men rejected due to clot. Phlebotomists notified by message. [facility] 04/02/2023 11:56:19 EST\2nd draw rejected due to clot. Phlebotomists notified by message. [facility] 04/02/2023 12:27:56 EST Performed By: #### 1 2543540, 3206906, 13717586, 59761708, 28518545, 6293638, 8198065, 7380392 ####[facility] [address] [place] [address] WBC 5.3 E9/L Normal 4.0-11.0 [facility] Comment on above: Order Comment: speci men rejected due to clot. Phlebotomists notified by message. [facility] 04/02/2023 11:56:19 EST\2nd draw rejected due to clot. Phlebotomists notified by message. [facility] 04/02/2023 12:27:56 EST Performed By: #### 1 [id number], 9670885, 97147590, 58727934, 75738926, 1370304, 1893897, 9327674 ####[facility] [address] [place] [address] CHEMISTRYOrdered By: SYSTEM SYSTEM on 04-02-2023 Troponin pg/mL Low 10.10 - 27.10 pg/mL Remis ol Chem Comment on above: Interpretive Data: T he 95% CI (Confidence Interval) PPV (Positive Predictive Value) for myocardial infarction in females is 38 pg/mL, in males 51 pg/mL. The results should be used in conjunction with clinical conditions of myocardial infarction. (Access High Sensitivity Troponin I Instructions For Use, Alan Gordy, September 2017) Albumin [Mass/Vol] 3.9 g/dL Normal 3.3 - 5.0 gm/dL R emisol Chem Albumin/Globulin [Mass ratio] 1.6 {ratio} Normal 1.1 - 2.2 Remisol Chem Alk Phos 50 [iU]/d Normal 21 - 98 Int._Unit/L Remis ol Chem ALT 27 [iU]/d Normal 6 - 46 Int._Unit/L Remiso l Chem AST 36 [iU]/d Normal 5 - 43 Int._Unit/L Remiso l Chem Bili Direct 0.0 mg/dL Normal 0.0 - 0.4 mg/dL Remisol Chem Bili Indirect 0.3 mg/dL Normal 0.1 - 0.9 mg/dL Remiso l Chem Bili Total 0.3 mg/dL Normal 0.0 - 1.1 mg/dL Remisol C hem Free T4 [Mass/Vol] 0.75 ng/dL Normal 0.58 - 1.64 ng/dL Remisol Chem Globulin (S) [Mass/Vol] 2.4 g/dL Normal 1.4 - 4.0 gm/dL Remisol Chem Lipase Lvl 124 unit/L High 13 - 58 unit/L Remisol Ch em Protein [Mass/Vol] 6.3 g/dL Normal 6.0 - 7.8 gm/dL R emisol Chem TSH Qn 0.11 m[IU]/L Low 0.34 - 5.60 mcIU/mL Rem isol Chem Troponin 2.40 pg/mL Low 10.10 - 27.10 pg/mL Remis ol [facility] Comment on above: Interpretive Data: T he 95% CI (Confidence Interval) PPV (Positive Predictive Value) for myocardial infarction in females is 38 pg/mL, in males 51 pg/mL. The results should be used in conjunction with clinical conditions of myocardial infarction. (Access High Sensitivity Troponin I Instructions For Use, Alan Choteau, September 2017) Anion gap [Moles/Vol] 10 mmol/L Normal 6 - 16 mEq/L Remisol Chem Calcium [Mass/Vol] 8.4 mg/dL Low 8.9 - 11.1 mg/dL Remisol Chem Chloride [Moles/Vol] 111 mmol/L Normal 101 - 111 mmol/L Remisol Chem CO2 [Moles/Vol] 21 mmol/L Normal 21 - 31 mmol/L Remis ol Chem Creatinine [Mass/Vol] 0.7 mg/dL Normal 0.5 - 1.3 mg/dL Remisol Chem eGFR 116 mL/min/1.73 m2 Normal >=59mL/min/1.73 m 2 Remisol Chem Glucose [Mass/Vol] 86 mg/dL Normal 55 - 199 mg/dL Re misol Chem Magnesium [Mass/Vol] 1.9 mg/dL Normal 1.3 - 2.4 mg/dL Remisol Chem Potassium [Moles/Vol] 3.9 mmol/L Normal 3.5 - 5.3 mmol/L Remisol Chem Sodium [Moles/Vol] 138 mmol/L Normal 135 - 145 mmol/L Remisol Chem Urea nitrogen [Mass/Vol] 10 mg/dL Normal 5 - 21 mg/dL Remisol Chem Urea nitrogen/Creatinine [Mass ratio] 14 mg/mg Normal 10 - 20 Remisol Chem CHEMISTRYOrdered By: Shannon lopez on 04-02-2023 Natriuretic peptide B (Bld) [Mass/Vol] 25 pg/mL Normal 5 - 80 pg/mL [facility] COAGULATIONOrdered By: Gladys Arroyo on 04-02-2023 aPTT Coag (PPP) [Time] 33.2 s Normal 25.1 - 36.5 second(s) [facility] [place] [facility] Comment on above: Interpretive Data: Jonh lamas 15 days - 4 weeks 1 - [...] the same coagulation reagent and instrumentation as [facility] [place]. Currently there are no coagulation studies available worldwide for children to 14 days, and no normal ranges. Heparin therapeutic range (represented by Anti-Factor Xa activity of 0.2 - 0.4 U/mL) corresponds to PTT of 56.6 - 109.0 sec. Fibrin D-dimer FEU (PPP) [Mass/Vol] 541 ng/mL FEU Invalid Interpretation Code 215 - 500 ng/mL FEU [facility] [place] [facility] Comment on above: Result Comment: Resu lts Called To TAMIKO/Mauricio López By And Read Back For Confirmation On 04/02/2023 13:54:20 EST Results Verified By Repeat Analysis Interpretive Data: T his assay is intended for use as an aid in the diagnosis of DVT or PE. These conditions cannot be excluded with certainty solely on the basis of a D-dimer concentration being within the reference range This D-Dimer assay may be used in conjunction with a non-high clinical pretest probability assessment to exclude deep-vein thrombosis(DVT). For exclusion of venous thrombosis or pulmonary embolism the analyte D-Dimer should not be used as an aid in patients with: Therapeutic dose anticoagulant therapy for >24 hours Fibrinolytic therapy within previous 7 days Trauma or surgery within previous 4 weeks Disseminated malignacies Aortic aneurysm Sepsis, severe infections, pneumonia, severe skin infections Liver cirrhosis INR Coag (PPP) [Relative time] 1.14 {INR} Invalid Interpretation Code [facility] [place] [facility] Comment on above: Interpretive Data: I NR results are specifically intended to assess patients stabilized on long-term Anticoagulation therapy suggested INR s Less Intensive Anticoagulation 2.0 3.0 Conventional Range 3.0 4.5 PT Coag (PPP) [Time] 12.7 s High 9.4 - 12.5 second(s) [facility] [place] [facility] Comment on above: Interpretive Data: 1 5 days - 4 weeks 1 - 5 months 6 -11 months 1-5 years 6-10 years 11 -17 years Mean: 11.2 (9.5-12.6) Mean: 11.0 (9.7-12.8) Mean: 11.0 (9.8-13.0) Mean: 11.3 (9.9-13.4) Mean: 11.7 (10.0-14.6) Mean: 11.8 (10.0 - 14.1) Pediatric Reference ranges were obtained from a study by Stanton Lott et al. prepared from 1437 samples obtained at 7 different centers using the same coagulation reagent and instrumentation as [facility] [place]. Currently there are no coagulation studies available worldwide for children to 14 days, and no normal ranges. CTA Abdomen and Pelvison CTA Abdomen and Pelvis Normal [facility] CTA Cheston 04-02-2023 CTA Chest Normal [facility] Consent for Treatmenton 03-18 Consent for Treatment [id number] B5#1.00TIFF Normal [facility] D-Dimeron 04-02-2023 Fibrin D-dimer FEU (PPP) [Mass/Vol] 541 [id number] Abnormal 215-500 [facility] Comment on above: Order Comment: speci men rejected due to clot. Phlebotomists notified by message. [facility] 04/02/2023 12:33:03 EST Result Comment: Resu lts Called To ER/Mauricio López By And Read Back For Confirmation On 04/02/2023 13:54:20 ESTResults Verified By Repeat AnalysisThis assay is intended for use as an aid in the diagnosis of DVT or PE. These conditions cannot be excluded with certainty solely on the basis of a D-dimer concentration being within the reference rangeThis D-Dimer assay may be used in conjunction with a non-high clinical pretest probability assessment to exclude deep-vein thrombosis(DVT). For exclusion of venous thrombosis or pulmonary embolism the analyte D-Dimer should not be used as an aid in patients with:Therapeutic dose anticoagulant therapy for >24 hoursFibrinolytic therapy within previous 7 daysTrauma or surgery within previous 4 weeksDisseminated malignaciesAortic aneurysmSepsis, severe infections, pneumonia, severe skin infectionsLiver cirrhosisPregnancy Performed By: #### 1 [id number], 8177962, 79590088, 98810414, 32905240, 3645425, 7431814, 0962494 ####[facility] [address] [place] [address] Discharge Instructionson Discharge Instructions [id number]#1.00TIFF Normal [facility] ED Clinical Summaryon 2023 [facility] ED Note-Physician Normal [facility] Comment on above: Result Comment: Elec tronically Signed By: Jose Ramon Martinez, Ashutosh Valles\.br\Date and Time Signed: 04/02/23 17:20 EST ED Patient Education Noteon 04-02-2023 ED Patient Education Note Normal [facility] ED Patient Summaryon 024 ED Patient Summary Normal [facility] Free T4on 04-02-2023 Free T4 [Mass/Vol] 0.75 ng/dL Normal 0.58-1.64 [facility] Comment on above: Performed By: #### 2 [id number], 8388197, 16821364, 1783623 ####[facility] [address] [place] [address] HEMATOLOGYOrdered By: SYSTEM SYSTEM on 04-02-2023 Basophil Absolute 0.0 E9/L Normal 0.0 - 0.2 E9/L Rem isol Heme Basophils/100 WBC (Bld) 0.8 % Normal 0.0 - 2.0 % Remisol Heme Eos Absolute 0.2 E9/L Normal 0.0 - 0.5 E9/L Remisol Heme Eosinophils/100 WBC (Bld) 3.1 % Normal 0.0 - 8.0 % Remisol Heme Erythrocyte distribution width (RBC) [Ratio] 14.0 % Normal 10.9 - 14.2 % Remisol Heme Hematocrit (Bld) [Volume fraction] 38.0 % Normal 34.0 - 46.0 % Remisol Heme Hemoglobin (Bld) [Mass/Vol] 12.8 g/dL Normal 12.0 - 16.0 gm/dL Remisol Heme Lymph Absolute 1.8 E9/L Normal 1.0 - 4.0 E9/L Remiso l Heme Lymphocytes/100 WBC (Bld) 34.1 % Normal 14.0 - 50.0 % Remisol Heme MCH (RBC) [Entitic mass] 29.8 pg Normal 27.0 - 34.0 pg Remisol Heme MCHC (RBC) [Mass/Vol] 33.5 g/dL Normal 31.4 - 36.0 gm/dL Remisol Heme MCV (RBC) [Entitic vol] 88.9 fL Normal 80.0 - 100.0 fL Remisol Heme Lewis Absolute 0.4 E9/L Normal 0.2 - 1.0 E9/L Remisol Heme Monocytes/100 WBC (Bld) 7.4 % Normal 4.0 - 14.0 % Remisol Heme Neutro Absolute 2.9 E9/L Normal 2.0 - 7.5 E9/L Remis ol Heme Neutro Auto 54.6 % Normal 36.0 - 75.0 % Remisol He me Platelet 204.0 E9/L Normal 150.0 - 500.0 E9/L Remiso l Heme Comment on above: Result Comment: Demetra meneses with slide review Platelet mean volume (Bld) [Entitic vol] 9.8 fL Normal 6.4 - 10.8 fL Remisol Heme RBC 4.3 E12/L Normal 4.3 - 5.9 E12/L Remisol H helen WBC 5.3 E9/L Normal 4.0 - 11.0 E9/L Remisol H helen Hep Func Panelon 04-02-2023 Albumin [Mass/Vol] 3.9 g/dL Normal 3.3-5.0 [facility] Comment on above: Performed By: #### 2 344375, 0519596, 90255006, 0943198 ####[facility] [address] [place] [address] Albumin/Globulin [Mass ratio] 1.6 {ratio} Normal 1.1-2.2 [facility] Comment on above: Performed By: #### 2 978560, 9958821, 68139657, 1120421 ####[facility] [address] [place] [address] Alk Phos 50 Int._Unit/L Normal 21-98 [facility] Comment on above: Performed By: #### 2 126942, 5088822, 13256374, 5278615 ####[facility] [address] [facility] [place] [address] ALT 27 Int._Unit/L Normal 6-46 [facility] Comment on above: Performed By: #### 2 388730, 5020766, 58410588, 7885972 ####[facility] [address] [place] [address] AST 36 Int._Unit/L Normal 5-43 [facility] Comment on above: Performed By: #### 2 435987, 0246345, 47888660, 6259123 ####[facility] [address] [place] [address] Bili Direct 0.0 mg/dL Normal 0.0-0.4 [facility] Comment on above: Performed By: #### 2 776787, 4785798, 29868563, 9248688 ####[facility] [address] [place] [address] Bili Indirect 0.3 mg/dL Normal 0.1-0.9 [facility] Comment on above: Performed By: #### 2 456726, 8354674, 60927879, 6273659 ####[facility] [address] [place] [address] Bili Total 0.3 mg/dL Normal 0.0-1.1 [facility] Comment on above: Performed By: #### 2 920902, 7671913, 05804335, 4242892 ####[facility] [address] [place] [address] Globulin (S) [Mass/Vol] 2.4 g/dL Normal 1.4-4.0 [facility] Comment on above: Performed By: #### 2 732703, 6798734, 98312163, 7038089 ####[facility] [address] [place] [address] Protein [Mass/Vol] 6.3 g/dL Normal 6.0-7.8 [facility] Comment on above: Performed By: #### 2 207898, 2803666, 28707692, 1064733 ####[facility] [address] [place] [address] Lipase Levelon 04-02-2023 Lipase Lvl 124 unit/L High 13-58 [facility] Comment on above: Performed By: #### 2 219135, 9484150, 15964312, 6652483 ####[facility] [address] [place] [address] Magnesiumon 04-02-2023 Magnesium [Mass/Vol] 1.9 mg/dL Normal 1.3-2.4 [facility] Comment on above: Performed By: #### 1 7496149, 2631213, 87245838, 20331012, 59575801, 4179257, 6869282, 6653142 ####[address] [place] [address] PT & PTTon 04-02-2023 aPTT Coag (PPP) [Time] 33.2 second(s) Normal 25.1-36.5 [facility] Comment on above: Order Comment: speci men rejected due to clot. phlebotomists notified of redraw by message. [facility] 04/02/2023 12:33:39 EST Result Comment: Para meter 15 days - [...] the same coagulation reagent and instrumentation as [facility] [place]. Currently there are no coagulation studies available worldwide for children to 14 days, and no normal ranges. Heparin therapeutic range (represented by Anti-Factor Xa activity of 0.2 - 0.4 U/mL) corresponds to PTT of 56.6 - 109.0 sec. Performed By: #### 1 8311776, 0772345, 01029480, 25827483, 75391126, 7457592, 4372631, 5003195 ####[facility] [address] [place] [address] INR Coag (PPP) [Relative time] 1.14 {INR} Invalid Interpretation Code [facility] Comment on above: Order Comment: speci men rejected due to clot. phlebotomists notified of redraw by message. [facility] 04/02/2023 12:33:39 EST Result Comment: INR results are specifically intended to assess patients stabilized on long-term Anticoagulation therapy suggested INR?s ?Less Intensive Anticoagulation? 2.0 ? 3.0Conventional Range 3.0 ? 4.5 Performed By: #### 1 8145924, 8657064, 13052700, 07258393, 42484358, 8247395, 1409367, 2387341 ####[facility] [address] [place] [address] PT Coag (PPP) [Time] 12.7 second(s) High 9.4-12.5 [facility] Comment on above: Order Comment: speci men rejected due to clot. phlebotomists notified of redraw by message. [facility] 04/02/2023 12:33:39 EST Result Comment: 15 d ays - 4 weeks 1 - 5 months 6 -11 months 1-5 years 6-10 years 11 -17 years Mean: 11.2 (9.5-12.6) Mean: 11.0 (9.7-12.8) Mean: 11.0 (9.8-13.0) Mean: 11.3 (9.9-13.4) Mean: 11.7 (10.0-14.6) Mean: 11.8 (10.0 - 14.1) Pediatric Reference ranges were obtained from a study by Stanton Lott et al. prepared from 1437 samples obtained at 7 different centers using the same coagulation reagent and instrumentation as [facility] [place]. Currently there are no coagulation studies available worldwide for children to 14 days, and no normal ranges. Performed By: #### 1 5850178, 4370017, 59641219, 16622131, 00469030, 6111354, 9908611, 7472433 ####[facility] [address] [place] [address] Pre-Arrival Noteon Pre-Arrival Note Normal [facility] Progress Note-Nurseon 2023 Progress Note-Nurse CT called and verbalized IV infiltrated when attempting to flush. IV removed per this nurse and attempted to place IV with unsuccessful attempts. Dr. Albright and Sabina, RN aware. Normal [facility] TSH With T4fr Reflexon 04-02 TSH Qn 0.11 m[IU]/L Low 0.34-5.60 [facility] Comment on above: Performed By: #### 2 270637, 0548220, 71767107, 1057844 ####[facility] [address] [place] [address] Troponin 0 Hr.on 04-02-2023 Troponin 2.40 pg/mL Low 10.10-27.10 [facility] Comment on above: Result Comment: The 95% CI (Confidence Interval) PPV (Positive Predictive Value) for myocardial infarction in females is 38 pg/mL, in males 51 pg/mL. The results should be used in conjunction with clinical conditions of myocardial infarction.(Access High Sensitivity Troponin I Instructions For Use, Exposed Vocals, September 2017) Performed By: #### 1 2962430, 7314544, 43773931, 00134083, 99233905, 3105481, 0411233, 6625747 ####[address] [place] [address] Troponin 3 Hr.on 04-02-2023 Troponin I.cardiac [Mass/Vol] ng/mL Low 10.10-27.10 [facility] Comment on above: Result Comment: The 95% CI (Confidence Interval) PPV (Positive Predictive Value) for myocardial infarction in females is 38 pg/mL, in males 51 pg/mL. The results should be used in conjunction with clinical conditions of myocardial infarction.(Access High Sensitivity Troponin I Instructions For Use, Exposed Vocals, September 2017) Performed By: #### 1 [id number] ####[address] [place] [address] XR Chest Single Viewon 04-02 XR Chest Single View Normal [facility] eGFRon 04-02-2023 eGFR 116 mL/min/1.73 m2 Normal >=59 [facility] Comment on above: Order Comment: Order added by Discern Expert. Performed By: #### 1 7907019, 5837784, 68356491, 28307473, 45292742, 5505583, 8579904, 7676361 ####[address] [place] [address] Home Health Recordson 2023 Home Health Records [id number] F2#1.00TIFF Normal [facility] Ambulatory Visit Summaryon 0 03-24-2023 Ambulatory Visit Summary Normal [facility] Auth for Release of Medical Recordson 03-24-2023 Auth for Release of Medical Records [id number]#[id number] Normal [facility] Family Medicine Office/Clini c Noteon 03-24-2023 Family Medicine Office/Clinic Note Normal [facility] Comment on above: Result Comment: Elec tronically Signed By: Cirsthian REDDING, Jaquan Johnson\.br\Date and Time Signed: 03/24/23 15:20 EST CBC panel Auto (Bld)on 03-19 Erythrocyte distribution width (RBC) [Ratio] 12.1 % Normal 11.5-14.5 [facility] Comment on above: Performed By: #### V ERAB #### MELISA Galvan ([id number]) [facility] ([facility]) [address] [place] [address] [place] Hematocrit (Bld) [Volume fraction] 33.7 % Low 36.0-46.0 [facility] Comment on above: Performed By: #### V ERAB #### MELISA Galvan ([id number]) [facility] ([facility]) [id number] [place] [address] [place] Hemoglobin (Bld) [Mass/Vol] 11.9 g/dL Low 12.0-16.0 [facility] Comment on above: Performed By: #### V ERAB #### MELISA Galvan ([id number]) [facility] ([facility]) [id number] [place] [address] [place] MCH (RBC) [Entitic mass] 30.1 pg Normal 26.0-34.0 [facility] Comment on above: Performed By: #### V ERAB #### MELISA Galvan ([id number]) [facility] ([facility]) [address] [place] [address] [place] MCHC (RBC) [Mass/Vol] 35.3 g/dL Normal 32.0-36.0 [facility] Comment on above: Performed By: #### V ERAB #### MELISA Galvan ([id number]) [facility] ([facility]) [address] [place] [address] [place] MCV (RBC) [Entitic vol] 85 fL Normal 80-100 [facility] Comment on above: Performed By: #### V ERAB #### MELISA Galvan ([id number]) [facility] ([facility]) [address] [place] [address] [place] Nucleated RBC/100 WBC (Bld) [Ratio] 0.0 /100 WBCs Normal 0.0-0.0 [facility] Comment on above: Performed By: #### V ERAB #### MELISA Galvan ([id number]) [facility] ([facility]) [address] [place] [address] [place] Platelets (Bld) [#/Vol] 285 x10*3/uL Normal 150-450 [facility] Comment on above: Performed By: #### V ERAB #### MELISA Galvan ([id number]) [facility] ([facility]) [address] [place] [address] [place] RBC (Bld) [#/Vol] 3.96 x10*6/uL Low 4.00-5.20 [facility] Comment on above: Performed By: #### V ERAB #### MELISA Galvan ([id number]) [facility] ([facility]) [address] [place] [address] [place] WBC (Bld) [#/Vol] 4.3 x10*3/uL Low 4.4-11.3 [facility] Comment on above: Performed By: #### V ERAB #### MELISA Galvan ([id number]) [facility] [address] [place] [address] [place] Erythrocyte distribution width (RBC) [Ratio] 12.1 % 11.5 - 14.5 % [facility] Hematocrit (Bld) [Volume fraction] 33.7 % Low 36.0 - 46.0 % [facility] Hemoglobin (Bld) [Mass/Vol] 11.9 g/dL Low 12.0 - 16.0 g/dL [facility] Interpretation and review of laboratory results Abnormal [facility] MCH (RBC) [Entitic mass] 30.1 pg 26.0 - 34.0 pg [facility] MCHC (RBC) [Mass/Vol] 35.3 g/dL 32.0 - 36.0 g/dL [facility] MCV (RBC) [Entitic vol] 85 fL 80 - 100 fL [facility] Nucleated RBC/100 WBC (Bld) [Ratio] 0.0 % [facility] Platelets (Bld) [#/Vol] 285 10*3/uL [facility] RBC (Bld) [#/Vol] 3.96 10*6/uL [facility] WBC (Bld) [#/Vol] 4.3 10*3/uL [facility] Comprehensive metabolic 2000 panelon 03-19-2023 Albumin [Mass/Vol] 3.2 g/dL Low 3.5-5.0 [facility] Comment on above: Performed By: #### V ERAB #### MELISA Galvan ([id number]) [facility] ([facility]) [address] [place] [address] [place] ALP (Bld) [Catalytic activity/Vol] 68 U/L Normal 35-125 [facility] Comment on above: Performed By: #### V ERAB #### MELISA Galvan ([id number]) [facility] ([facility]) [address] [place] [address] [place] ALT [Catalytic activity/Vol] 14 U/L Normal 5-40 [facility] Comment on above: Performed By: #### V ERAB #### MELISA Galvan ([id number]) [facility] ([facility]) [address] [place] [address] [place] Anion gap [Moles/Vol] 13 mmol/L Normal <=19 [facility] Comment on above: Performed By: #### V ERAB #### MELISA Galvan ([id number]) [facility] ([facility]) [address] [place] [address] [place] AST [Catalytic activity/Vol] 27 U/L Normal 5-40 [facility] Comment on above: Performed By: #### V ERAB #### MELISA Galvan ([id number]) [facility] ([facility]) [address] [place] [address] [place] Bilirubin [Mass/Vol] 0.4 mg/dL Normal 0.1-1.2 [facility] Comment on above: Performed By: #### V ERAB #### MELISA Galvan ([id number]) [facility] ([facility]) [address] [place] [address] [place] Calcium [Mass/Vol] 8.7 mg/dL Normal 8.5-10.4 [facility] Comment on above: Performed By: #### V ERAB #### MELISA Galvan ([id number]) [facility] ([facility]) [address] [place] [address] [place] Chloride [Moles/Vol] 106 mmol/L Normal 97-107 [facility] Comment on above: Performed By: #### V ERAB #### MELISA Galvan ([id number]) [facility] [address] [place] [address] [place] CO2 [Moles/Vol] 21 mmol/L Low 24-31 [facility] Comment on above: Performed By: #### V ERAB #### MELISA Galvan ([id number]) [facility] ([facility]) [address] [place] [address] [place] Creatinine [Mass/Vol] 0.60 mg/dL Normal 0.40-1.60 [facility] Comment on above: Performed By: #### V ERAB #### MELISA Galvan ([id number]) [facility] ([facility]) [address] [place] [address] [place] GFR/1.73 sq M.predicted MDRD (S/P/Bld) [Vol rate/Area] mL/min/{1.73_m2} Normal >60 [facility] Comment on above: Result Comment: Calc ulations of estimated GFR are performed using the 2020 CKD-EPI Study Refit equation without the race variable for the IDMS-Traceable creatinine methods. https://jasn.asnjournals.org/content//ASN.00096474 88 Performed By: #### V ERAB #### MELISA Galvan ([id number]) [facility] ([facility]) [address] [place] [address] [place] Glucose [Mass/Vol] 98 mg/dL Normal 65-99 [facility] Comment on above: Performed By: #### V ERAB #### MELISA Galvan ([id number]) [facility] ([facility]) [address] [place] [address] [place] Potassium [Moles/Vol] 3.7 mmol/L Normal 3.4-5.1 [facility] Comment on above: Performed By: #### V ERAB #### MELISA Galvan ([id number]) [facility] ([facility]) [address] [place] [address] [place] Protein [Mass/Vol] 5.7 g/dL Low 5.9-7.9 [facility] Comment on above: Performed By: #### V ERAB #### MELISA Galvan ([id number]) [facility] ([facility]) [address] [place] [address] [place] Sodium [Moles/Vol] 140 mmol/L Normal 133-145 [facility] Comment on above: Performed By: #### V ERAB #### MELISA Galvan ([id number]) [facility] ([facility]) [address] [place] [address] [place] Urea nitrogen [Mass/Vol] 5 mg/dL Low 8-25 [facility] Comment on above: Performed By: #### V ERAB #### MELISA Galvan ([id number]) [facility] ([facility]) [address] [place] [address] [place] Albumin [Mass/Vol] 3.2 g/dL Low 3.5 - 5.0 g/dL [facility] ALP (Bld) [Catalytic activity/Vol] 68 U/L 35 - 125 U/L [facility] ALT [Catalytic activity/Vol] 14 U/L 5 - 40 U/L [facility] Anion gap [Moles/Vol] 13 mmol/L NINF - 19 mmol/L [facility] AST [Catalytic activity/Vol] 27 U/L 5 - 40 U/L [facility] Bilirubin [Mass/Vol] 0.4 mg/dL 0.1 - 1.2 mg/dL [facility] Calcium [Mass/Vol] 8.7 mg/dL 8.5 - 10.4 mg/dL [facility] Chloride [Moles/Vol] 106 mmol/L 97 - 107 mmol/L [facility] CO2 [Moles/Vol] 21 mmol/L Low 24 - 31 mmol/L [facility] Creatinine [Mass/Vol] 0.60 mg/dL 0.40 - 1.60 mg/dL [facility] eGFR - PINF [facility] Comment on above: Calculations of jessica mated GFR are performed using the 2020 CKD-EPI Study Refit equation without the race variable for the IDMS-Traceable creatinine methods. https://jasn.asnjournals.org/content//ASN.73360643 88 Glucose [Mass/Vol] 98 mg/dL 65 - 99 mg/dL [facility] Interpretation and review of laboratory results Abnormal [facility] Potassium [Moles/Vol] 3.7 mmol/L 3.4 - 5.1 mmol/L [facility] Protein [Mass/Vol] 5.7 g/dL Low 5.9 - 7.9 g/dL Un [facility] Sodium [Moles/Vol] 140 mmol/L 133 - 145 mmol/L [facility] Urea nitrogen [Mass/Vol] 5 mg/dL Low 8 - 25 mg/dL [facility] EGDon 03-19-2023 Esophagogastroduode noscopy Table formatting from the original result was not included. Normal [facility] EGD Study observation Narrat iveon 03-19-2023 Table formatting from the original result was not included. Impression Edematous, granular and hemorrhagic mucosa in the body of the stomach Performed forceps biopsy in the body of the stomach to rule out H. pylori The upper third of the esophagus, middle third of the esophagus and lower third of the esophagus appeared normal. The jejunum appeared normal. One food bolus in the body of the stomach Small gastric pouch with some retained food.. Findings Edematous, granular and hemorrhagic mucosa in the body of the stomach; Performed single forceps biopsy in the body of the stomach to rule out H. pylori The upper third of the esophagus, middle third of the esophagus and lower third of the esophagus appeared normal. The jejunum appeared normal. One food bolus in the body of the stomach Recommendation Consider the use of low dose reglan (5 mg) before meals. Await biopsy for h pylori... OK for soft diet Indication Abdominal pain, Nausea and vomiting, unspecified vomiting type Staff Staff Role Eve Agosto MD Proceduralist Medications No administrations occurring from 1403 to 1433 on 03/19/23 Preprocedure A history and physical has been performed, and patient medication allergies have been reviewed. The patient's tolerance of previous anesthesia has been reviewed. The risks and benefits of the procedure and the sedation options and risks were discussed with the patient. All questions were answered and informed consent obtained. Details of the Procedure The patient underwent monitored anesthesia care, which was administered by an anesthesia professional. The patient's blood pressure, ECG, ETCO2, heart rate, level of consciousness, oxygen and respirations were monitored throughout the procedure. The scope was introduced through the mouth and advanced to the second part of the duodenum. Retroflexion was performed in the cardia. Prior to the procedure, the patient's H. Pylori status was negative. The patient experienced no blood loss. The procedure was not difficult. The patient tolerated the procedure well. There were no apparent adverse events. Events Procedure Events Event Event Time ENDO SCOPE IN TIME 03/19/2023 2:26 PM ENDO SCOPE OUT TIME 03/19/2023 2:32 PM Specimens ID Type Source Tests Collected by Time 1 : r/o h pylori Tissue STOMACH ANTRUM BIOPSY SURGICAL PATHOLOGY EXAM Michael Keyes RN 03/19/2023 1431 Procedure Location [address] [address] Referring Provider Generic Provider [place] No address on file Procedure Provider No name on file [facility] Work Phone: Radiology Study observation (narrative) [facility] Work Phone: EGD Study observation Narrat iveOrdered By: Eve Agosto on 03-19-2023 [facility] Work Phone: Home Health Recordson 2023 Home Health Records [id number] Normal [facility] Surgical pathology studyon 0 03-19-2023 Surgical pathology study Pathology report.total SEE COMMENT Surgical Pathology Case: [id number] Authorizing Provider: Eve Agosto MD Collected: 03/19/2023 1431 Ordering Location: [facility] Received: 03/19/[address] [place] [address] Pathologist: Melisa Rodriguez MD Specimen: STOMACH ANTRUM BIOPSY, r/o h pylori Path report.final diagnosis SEE COMMENT STOMACH ANTRUM, BIOPSY: 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 Laboratory comment By the signature on this report, the individual or group listed as making the Final Interpretation/Diag nosis certifies that they have reviewed this case. Path report.gross observation SEE COMMENT A: Received in formalin labeled with the patient's name and hospital number and stomach antrum biopsy rule out H. pylori , is 1 irregular and renner-pink soft tissue fragment measuring 0.6 x 0.3 x 0.2 cm. The specimen is submitted in toto in 1 cassette. [facility] Gross dissection performed at: [place] [address] Normal [facility] CBC panel Auto (Bld)on 03-18 Erythrocyte distribution width (RBC) [Ratio] 12.5 % Normal 11.5-14.5 [facility] Comment on above: Performed By: #### 5 8410-2 ####MELISA Galvan ([id number])[facility] ()[address] [place] [address] Hematocrit (Bld) [Volume fraction] 37.2 % Normal 36.0-46.0 [facility] Comment on above: Performed By: #### 5 8410-2 ####MELISA Galvan (24130)[facility] ()[address] [place] [address] Hemoglobin (Bld) [Mass/Vol] 12.1 g/dL Normal 12.0-16.0 [facility] Comment on above: Performed By: #### 5 8410-2 ####MELISA Galvan (08144)[facility] ()[address] [place] [address] MCH (RBC) [Entitic mass] 30.0 pg Normal 26.0-34.0 [facility] Comment on above: Performed By: #### 5 8410-2 ####MELISA Galvan (70707)[facility] ()[address] [place] [address] MCHC (RBC) [Mass/Vol] 32.5 g/dL Normal 32.0-36.0 [facility] Comment on above: Performed By: #### 5 8410-2 ####MELISA Galvan (00843)[facility] ()[address] [place] [address] MCV (RBC) [Entitic vol] 92 fL Normal 80-100 [facility] Comment on above: Performed By: #### 5 8410-2 ####MELISA Galvan (98422)[facility] ()[address] [place] [address] Nucleated RBC/100 WBC (Bld) [Ratio] 0.0 /100 WBCs Normal 0.0-0.0 [facility] Comment on above: Performed By: #### 5 8410-2 ####MELISA Galvan (53746)[facility] ()[address] [place] [address] Platelets (Bld) [#/Vol] 266 x10*3/uL Normal 150-450 [facility] Comment on above: Performed By: #### 5 8410-2 ####MELISA Galvan (82882)[facility] ()[address] [place] [address] RBC (Bld) [#/Vol] 4.03 x10*6/uL Normal 4.00-5.20 [facility] Comment on above: Performed By: #### 5 8410-2 ####MELISA Galvan (25302)[facility] ()[address] [place] [address] WBC (Bld) [#/Vol] 4.0 x10*3/uL Low 4.4-11.3 [facility] Comment on above: Performed By: #### 5 8410-2 ####MELISA Galvan (57232)[facility] ()[address] [place] [address] Erythrocyte distribution width (RBC) [Ratio] 12.5 % 11.5 - 14.5 % [facility] Hematocrit (Bld) [Volume fraction] 37.2 % 36.0 - 46.0 % [facility] Hemoglobin (Bld) [Mass/Vol] 12.1 g/dL 12.0 - 16.0 g/dL [facility] Interpretation and review of laboratory results Abnormal [facility] MCH (RBC) [Entitic mass] 30.0 pg 26.0 - 34.0 pg [facility] MCHC (RBC) [Mass/Vol] 32.5 g/dL 32.0 - 36.0 g/dL [facility] MCV (RBC) [Entitic vol] 92 fL 80 - 100 fL [facility] Nucleated RBC/100 WBC (Bld) [Ratio] 0.0 % [facility] Platelets (Bld) [#/Vol] 266 10*3/uL [facility] RBC (Bld) [#/Vol] 4.03 10*6/uL [facility] WBC (Bld) [#/Vol] 4.0 10*3/uL Low [facility] Comprehensive metabolic 2000 panelon 03-18-2023 Albumin [Mass/Vol] 3.0 g/dL Low 3.5-5.0 [facility] Comment on above: Performed By: #### 2 4323-8 ####MELISA Galvan (24823)[facility] ()[address] [place] [address] ALP (Bld) [Catalytic activity/Vol] 66 U/L Normal 35-125 [facility] Comment on above: Performed By: #### 2 432-8 ####MELISA Galvan (83512)[facility] ()[address] [place] [address] ALT [Catalytic activity/Vol] 17 U/L Normal 5-40 [facility] Comment on above: Performed By: #### 2 432-8 ####MELISA Galvan (50642)[facility] ()[address] [place] [address] Anion gap [Moles/Vol] 10 mmol/L Normal <=19 [facility] Comment on above: Performed By: #### 2 4323-8 ####MELISA Galvan (38659)[facility] ()[address] [place] [address] AST [Catalytic activity/Vol] 33 U/L Normal 5-40 [facility] Comment on above: Performed By: #### 2 4323-8 ####MELISA Galvan (00113)[facility] ()[address] [place] [address] Bilirubin [Mass/Vol] 0.3 mg/dL Normal 0.1-1.2 [facility] Comment on above: Performed By: #### 2 4323-8 ####MELISA Galvan (71177)[facility] ()[address] [place] [address] Calcium [Mass/Vol] 8.4 mg/dL Low 8.5-10.4 [facility] Comment on above: Performed By: #### 2 4323-8 ####MELISA Galvan (02635)[facility] ()[address] [place] [address] Chloride [Moles/Vol] 108 mmol/L High 97-107 [facility] Comment on above: Performed By: #### 2 4323-8 ####MELISA Galvan (54098)[facility] ()[address] [place] [address] CO2 [Moles/Vol] 19 mmol/L Low 24-31 [facility] Comment on above: Performed By: #### 2 4323-8 ####MELISA Galvan (36938)[facility] ()[address] [place] [address] Creatinine [Mass/Vol] 0.80 mg/dL Normal 0.40-1.60 [facility] Comment on above: Performed By: #### 2 4323-8 ####MELISA Galvan (83167)[facility] ()[address] [place] [address] GFR/1.73 sq M.predicted MDRD (S/P/Bld) [Vol rate/Area] mL/min/{1.73_m2} Normal >60 [facility] Comment on above: Result Comment: Calc ulations of estimated GFR are performed using the 2020 CKD-EPI Study Refit equation without the race variable for the IDMS-Traceable creatinine methods. https://jasn.asnjournals.org/content/early//ASN.52211023 88 Performed By: #### 2 4323-8 ####MELISA Galvan (90089)[facility] ()[address] [place] [address] Glucose [Mass/Vol] 79 mg/dL Normal 65-99 [facility] Comment on above: Performed By: #### 2 4323-8 ####MELISA Galvan (40808)[facility] ()[address] [place] [address] Potassium [Moles/Vol] 3.8 mmol/L Normal 3.4-5.1 [facility] Comment on above: Performed By: #### 2 4323-8 ####MELISA Galvan (45636)[facility] ()[address] [place] [address] Protein [Mass/Vol] 5.7 g/dL Low 5.9-7.9 [facility] Comment on above: Performed By: #### 2 4323-8 ####MELISA Galvan (17523)[facility] ()[address] [place] [address] Sodium [Moles/Vol] 137 mmol/L Normal 133-145 [facility] Comment on above: Performed By: #### 2 4323-8 ####MELISA Galvan (60968)[facility] ()[address] [place] [address] Urea nitrogen [Mass/Vol] 5 mg/dL Low 8-25 [facility] Comment on above: Performed By: #### 2 4323-8 ####MELISA Galvan (63771)[facility] ()[address] [place] [address] Albumin [Mass/Vol] 3.0 g/dL Low 3.5 - 5.0 g/dL [facility] ALP (Bld) [Catalytic activity/Vol] 66 U/L 35 - 125 U/L [facility] ALT [Catalytic activity/Vol] 17 U/L 5 - 40 U/L [facility] Anion gap [Moles/Vol] 10 mmol/L NINF - 19 mmol/L [facility] AST [Catalytic activity/Vol] 33 U/L 5 - 40 U/L [facility] Bilirubin [Mass/Vol] 0.3 mg/dL 0.1 - 1.2 mg/dL [facility] Calcium [Mass/Vol] 8.4 mg/dL Low 8.5 - 10.4 mg/dL [facility] Chloride [Moles/Vol] 108 mmol/L High 97 - 107 mmol/L [facility] CO2 [Moles/Vol] 19 mmol/L Low 24 - 31 mmol/L [facility] Creatinine [Mass/Vol] 0.80 mg/dL 0.40 - 1.60 mg/dL [facility] eGFR - PINF [facility] Comment on above: Calculations of jessica mated GFR are performed using the 2020 CKD-EPI Study Refit equation without the race variable for the IDMS-Traceable creatinine methods. https://jasn.asnjournals.org/content/early//ASN.32094546 88 Glucose [Mass/Vol] 79 mg/dL 65 - 99 mg/dL [facility] Interpretation and review of laboratory results Abnormal [facility] Potassium [Moles/Vol] 3.8 mmol/L 3.4 - 5.1 mmol/L [facility] Protein [Mass/Vol] 5.7 g/dL Low 5.9 - 7.9 g/dL [facility] Sodium [Moles/Vol] 137 mmol/L 133 - 145 mmol/L [facility] Urea nitrogen [Mass/Vol] 5 mg/dL Low 8 - 25 mg/dL [facility] CBC panel Auto (Bld)on 03-17 Erythrocyte distribution width (RBC) [Ratio] 12.5 % Normal 11.5-14.5 [facility] Comment on above: Performed By: #### 5 8410-2 ####MELISA Galvan (74661)[facility] ()[address] [place] [address] Hematocrit (Bld) [Volume fraction] 34.9 % Low 36.0-46.0 [facility] Comment on above: Performed By: #### 5 8410-2 ####MELISA Galvan (99093)[facility] ()[address] [place] [address] Hemoglobin (Bld) [Mass/Vol] 11.5 g/dL Low 12.0-16.0 [facility] Comment on above: Performed By: #### 5 8410-2 ####MELISA Galvan (17246)[facility] ()[address] [place] [address] MCH (RBC) [Entitic mass] 30.2 pg Normal 26.0-34.0 [facility] Comment on above: Performed By: #### 5 8410-2 ####MELISA Galvan ()[facility] ()[address] [place] [address] MCHC (RBC) [Mass/Vol] 33.0 g/dL Normal 32.0-36.0 [facility] Comment on above: Performed By: #### 5 8410-2 ####MELISA Galvan ()[facility] ()[address] [place] [address] MCV (RBC) [Entitic vol] 92 fL Normal 80-100 [facility] Comment on above: Performed By: #### 5 8410-2 ####MELSIA Galvan ()[facility] ()[address] [place] [address] Nucleated RBC/100 WBC (Bld) [Ratio] 0.0 /100 WBCs Normal 0.0-0.0 [facility] Comment on above: Performed By: #### 5 8410-2 ####MELISA Galvan (31727)[facility] ()[address] [place] [address] Platelets (Bld) [#/Vol] 268 x10*3/uL Normal 150-450 [facility] Comment on above: Performed By: #### 5 8410-2 ####MELISA Galvan (23713)[facility] ()[address] [place] [address] RBC (Bld) [#/Vol] 3.81 x10*6/uL Low 4.00-5.20 [facility] Comment on above: Performed By: #### 5 8410-2 ####MELISA Galvan ()[facility] ()[address] [place] [address] WBC (Bld) [#/Vol] 5.0 x10*3/uL Normal 4.4-11.3 [facility] Comment on above: Performed By: #### 5 8410-2 ####MELISA Galvan (20632)[facility] ()[address] [place] [address] Erythrocyte distribution width (RBC) [Ratio] 12.5 % 11.5 - 14.5 % [facility] Hematocrit (Bld) [Volume fraction] 34.9 % Low 36.0 - 46.0 % [facility] Hemoglobin (Bld) [Mass/Vol] 11.5 g/dL Low 12.0 - 16.0 g/dL [facility] Interpretation and review of laboratory results Abnormal [facility] MCH (RBC) [Entitic mass] 30.2 pg 26.0 - 34.0 pg [facility] MCHC (RBC) [Mass/Vol] 33.0 g/dL 32.0 - 36.0 g/dL [facility] MCV (RBC) [Entitic vol] 92 fL 80 - 100 fL [facility] Nucleated RBC/100 WBC (Bld) [Ratio] 0.0 % [facility] Platelets (Bld) [#/Vol] 268 10*3/uL [facility] RBC (Bld) [#/Vol] 3.81 10*6/uL Low [facility] WBC (Bld) [#/Vol] 5.0 10*3/uL [facility] Comprehensive metabolic 2000 panelon 03-17-2023 Albumin [Mass/Vol] 3.3 g/dL Low 3.5-5.0 [facility] Comment on above: Performed By: #### 2 4323-8 ####MELISA Galvan (59740)[facility] ()[address] [place] [address] ALP (Bld) [Catalytic activity/Vol] 61 U/L Normal 35-125 [facility] Comment on above: Performed By: #### 2 4323-8 ####MELISA Galvan (77011)[facility] ()[address] [place] [address] ALT [Catalytic activity/Vol] 17 U/L Normal 5-40 [facility] Comment on above: Performed By: #### 2 4323-8 ####MELISA Galvan (10939)[facility] ()[address] [place] [address] Anion gap [Moles/Vol] 10 mmol/L Normal <=19 [facility] Comment on above: Performed By: #### 2 4323-8 ####MELISA Galvan (66739)[facility] ()[address] [place] [address] AST [Catalytic activity/Vol] 31 U/L Normal 5-40 [facility] Comment on above: Performed By: #### 2 432-8 ####MELISA Galvan (45664)[facility] ()[address] [place] [address] Bilirubin [Mass/Vol] 0.2 mg/dL Normal 0.1-1.2 [facility] Comment on above: Performed By: #### 2 4323-8 ####MELISA Galvan (82560)[facility] ()[address] [place] [address] Calcium [Mass/Vol] 8.1 mg/dL Low 8.5-10.4 [facility] Comment on above: Performed By: #### 2 4323-8 ####MELISA Galvan (86758)[facility] ()[address] [place] [address] Chloride [Moles/Vol] 112 mmol/L High 97-107 [facility] Comment on above: Performed By: #### 2 4323-8 ####MELISA Galvan (94739)[facility] ()[address] [place] [address] CO2 [Moles/Vol] 21 mmol/L Low 24-31 [facility] Comment on above: Performed By: #### 2 4323-8 ####MELISA Galvan (91182)[facility] ()[address] [place] [address] Creatinine [Mass/Vol] 0.80 mg/dL Normal 0.40-1.60 [facility] Comment on above: Performed By: #### 2 4323-8 ####MELISA Galvan (40946)[facility] ()[address] [place] [address] GFR/1.73 sq M.predicted MDRD (S/P/Bld) [Vol rate/Area] mL/min/{1.73_m2} Normal >60 [facility] Comment on above: Result Comment: Calc ulations of estimated GFR are performed using the 2020 CKD-EPI Study Refit equation without the race variable for the IDMS-Traceable creatinine methods. https://jasn.asnjournals.org/content/early//ASN.95104845 88 Performed By: #### 2 4323-8 ####MELISA Galvan ([id number])[facility] ()[address] [place] [address] Glucose [Mass/Vol] 122 mg/dL High 65-99 [facility] Comment on above: Performed By: #### 2 4323-8 ####MELISA Galvan (43241)[facility] ()[address] [place] [address] Potassium [Moles/Vol] 4.3 mmol/L Normal 3.4-5.1 [facility] Comment on above: Performed By: #### 2 4323-8 ####MELISA Galvan (98102)[facility] ()[address] [place] [address] Protein [Mass/Vol] 5.7 g/dL Low 5.9-7.9 [facility] Comment on above: Performed By: #### 2 4323-8 ####MELISA Galvan (89083)[facility] ()[address] [place] [facility] [place] [address] Sodium [Moles/Vol] 143 mmol/L Normal 133-145 [facility] Comment on above: Performed By: #### 2 4323-8 ####MELISA Galvan (11312)[facility] ()[address] [place] [facility] [place] [address] Urea nitrogen [Mass/Vol] 5 mg/dL Low 8-25 [facility] Comment on above: Performed By: #### 2 4323-8 ####MELISA Galvan (86275)[facility] ()[address] [place] [facility] [place] [address] Albumin [Mass/Vol] 3.3 g/dL Low 3.5 - 5.0 g/dL [facility] ALP (Bld) [Catalytic activity/Vol] 61 U/L 35 - 125 U/L [facility] ALT [Catalytic activity/Vol] 17 U/L 5 - 40 U/L [facility] Anion gap [Moles/Vol] 10 mmol/L NINF - 19 mmol/L [facility] AST [Catalytic activity/Vol] 31 U/L 5 - 40 U/L [facility] Bilirubin [Mass/Vol] 0.2 mg/dL 0.1 - 1.2 mg/dL [facility] Calcium [Mass/Vol] 8.1 mg/dL Low 8.5 - 10.4 mg/dL [facility] Chloride [Moles/Vol] 112 mmol/L High 97 - 107 mmol/L [facility] CO2 [Moles/Vol] 21 mmol/L Low 24 - 31 mmol/L [facility] Creatinine [Mass/Vol] 0.80 mg/dL 0.40 - 1.60 mg/dL [facility] eGFR - PINF [facility] Comment on above: Calculations of jessica mated GFR are performed using the 2020 CKD-EPI Study Refit equation without the race variable for the IDMS-Traceable creatinine methods. https://genesn.yonatanjournals.org/content//ASN.14933443 88 Glucose [Mass/Vol] 122 mg/dL High 65 - 99 mg/dL [facility] Interpretation and review of laboratory results Abnormal [facility] Potassium [Moles/Vol] 4.3 mmol/L 3.4 - 5.1 mmol/L [facility] Protein [Mass/Vol] 5.7 g/dL Low 5.9 - 7.9 g/dL [facility] Sodium [Moles/Vol] 143 mmol/L 133 - 145 mmol/L [facility] Urea nitrogen [Mass/Vol] 5 mg/dL Low 8 - 25 mg/dL [facility] FL UPPER GI W DOUBLE CONTRAS T W SMALL BOWEL FOLLOW THROUGHon 03-17-2023 FL UPPER GI W DOUBLE CONTRAST W SMALL BOWEL FOLLOW THROUGH Interpreted By: Corie Garza, ADDENDUM: The exam was a single contrast upper GI with small-bowel follow-through Signed by: Corie Garza 04/01/2023 12:58 PM -------- ORIGINAL REPORT -------- Dictation workstation: [id number] Interpreted By: Corie Garza, STUDY: FL UPPER GI W DOUBLE CONTRAST W SMALL BOWEL FOLLOW THROUGH; 03/17/2023 4:40 pm INDICATION: Signs/Symptoms:abdo kerry pain. COMPARISON: None. ACCESSION NUMBER(S): [id number] ORDERING CLINICIAN: TIFFANIE MENDEZ TECHNIQUE: Multiple fluoroscopic spot images were obtained during a single contrast upper GI with KUB. 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 Contrast is seen passing easily from the distal esophagus into the gastric remnant and Tan loop. No evidence for extravasation is noted. No abnormally dilated loops of small bowel are noted. Contrast reaches large bowel within 150 minutes of administration of contrast. IMPRESSION: Postsurgical changes from gastric bypass. No evidence for obstruction.. MACRO: none Signed by: Corie Garza 03/17/2023 5:00 PM Dictation workstation: [id number] [facility] RF Upper gastrointestinal tr act and Small bowel Views W air contrast PO and W barium contrast Mary 03-17-2023 Postsurgical changes from gastric bypass. No evidence for obstruction.. MACRO: none Signed by: Corie Garza 03/17/2023 5:00 PM Dictation workstation: [id number] MMODAL Interpreted By: Corie Garza, STUDY: FL UPPER GI W DOUBLE CONTRAST W SMALL BOWEL FOLLOW THROUGH; 03/17/2023 4:40 pm INDICATION: Signs/Symptoms:abdo kerry pain. COMPARISON: None. ACCESSION NUMBER(S): [id number] ORDERING CLINICIAN: TIFFANIE MENDEZ TECHNIQUE: Multiple fluoroscopic spot images were obtained during a single contrast upper GI with KUB. 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 Contrast is seen passing easily from the distal esophagus into the gastric remnant and Tan loop. No evidence for extravasation is noted. No abnormally dilated loops of small bowel are noted. Contrast reaches large bowel within 150 minutes of administration of contrast. [facility]AL Corie Garza MD - 03/17/2023 Interpreted By: Corie Garza, STUDY: FL UPPER GI W DOUBLE CONTRAST W SMALL BOWEL FOLLOW THROUGH; 03/17/2023 4:40 pm INDICATION: Signs/Symptoms:abdo kerry pain. COMPARISON: None. ACCESSION NUMBER(S): [id number] ORDERING CLINICIAN: TIFFANIE MENDEZ TECHNIQUE: Multiple fluoroscopic spot images were obtained during a single contrast upper GI with KUB. 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 Contrast is seen passing easily from the distal esophagus into the gastric remnant and Tan loop. No evidence for extravasation is noted. No abnormally dilated loops of small bowel are noted. Contrast reaches large bowel within 150 minutes of administration of contrast. IMPRESSION: Postsurgical changes from gastric bypass. No evidence for obstruction.. MACRO: none Signed by: Corie Garza 03/17/2023 5:00 PM Dictation workstation: [id number] [facility] Work Phone: [facility] Work Phone: Radiology Study observation (narrative) [facility] Work Phone: XR CHEST 1 VIEWon 03-17-2023 XR CHEST 1 VIEW Interpreted By: Nya Ahmadi, STUDY: XR CHEST 1 VIEW 03/17/2023 7:09 pm INDICATION: Signs/Symptoms:S/p NG placement COMPARISON: 03/17/2023 done at 2:05 p.m. ACCESSION NUMBER(S): [id number] ORDERING CLINICIAN: TIFFANIE MENDEZ TECHNIQUE: AP erect view of the chest FINDINGS: The nasogastric tube has not changed in placement with the tip seen within the proximal thoracic esophagus. Heart and mediastinum are normally visualized. Lungs are clear. IMPRESSION: Distal tip of nasogastric tube in proximal thoracic esophagus just above the aortic arch. Signed by: Nya Ahmadi 03/17/2023 8:19 PM Dictation workstation: [id number] [facility] XR CHEST 1 VIEW Interpreted By: Corie Garza, STUDY: XR CHEST 1 VIEW; 03/17/2023 12:41 pm INDICATION: Signs/Symptoms:Stat us post NG tube placement. COMPARISON: None available ACCESSION NUMBER(S): [id number] ORDERING CLINICIAN: TIFFANIE MENDEZ FINDINGS: RESULT: Nasogastric tube is noted with tip in the upper esophagus at the level of the clavicular heads. The cardiac silhouette is within normal limits for size. Mediastinal contours are unremarkable. The lungs demonstrate no infiltrate or area of atelectasis. The osseous structures are unremarkable. IMPRESSION: Nasogastric tube tip is noted at the level of the upper esophagus at the level of the clavicular heads. The nasogastric tube removed itself from the patient soon after this exam. Signed by: Corie Garza 03/17/2023 4:19 PM Dictation workstation: [id number] [facility] XR Chest Single viewon 03-17 Distal tip of nasogastric tube in proximal thoracic esophagus just above the aortic arch. Signed by: Nya Ahmadi 03/17/2023 8:19 PM Dictation workstation: [id number] MMODAL Interpreted By: Nya Ahmadi, STUDY: XR CHEST 1 VIEW 03/17/2023 7:09 pm INDICATION: Signs/Symptoms:S/p NG placement COMPARISON: 03/17/2023 done at 2:05 p.m. ACCESSION NUMBER(S): [id number] ORDERING CLINICIAN: TIFFANIE MENDEZ TECHNIQUE: AP erect view of the chest FINDINGS: The nasogastric tube has not changed in placement with the tip seen within the proximal thoracic esophagus. Heart and mediastinum are normally visualized. Lungs are clear. [facility] Nya Ahmadi MD - 03/17/2023 Interpreted By: Nya Ahmadi, STUDY: XR CHEST 1 VIEW 03/17/2023 7:09 pm INDICATION: Signs/Symptoms:S/p NG placement COMPARISON: 03/17/2023 done at 2:05 p.m. ACCESSION NUMBER(S): [id number] ORDERING CLINICIAN: TIFFANIE MENDEZ TECHNIQUE: AP erect view of the chest FINDINGS: The nasogastric tube has not changed in placement with the tip seen within the proximal thoracic esophagus. Heart and mediastinum are normally visualized. Lungs are clear. IMPRESSION: Distal tip of nasogastric tube in proximal thoracic esophagus just above the aortic arch. Signed by: Nya Ahmadi 03/17/2023 8:19 PM Dictation workstation: [id number] [facility] Work Phone: Radiology Study observation (narrative) [facility] Work Phone: Nasogastric tube tip is noted at the level of the upper esophagus at the level of the clavicular heads. The nasogastric tube removed itself from the patient soon after this exam. Signed by: Corie Garza 03/17/2023 4:19 PM Dictation workstation: [id number] MMODAL Interpreted By: Corie Garza, STUDY: XR CHEST 1 VIEW; 03/17/2023 12:41 pm INDICATION: Signs/Symptoms:Stat us post NG tube placement. COMPARISON: None available ACCESSION NUMBER(S): [id number] ORDERING CLINICIAN: TIFFANIE MENDEZ FINDINGS: RESULT: Nasogastric tube is noted with tip in the upper esophagus at the level of the clavicular heads. The cardiac silhouette is within normal limits for size. Mediastinal contours are unremarkable. The lungs demonstrate no infiltrate or area of atelectasis. The osseous structures are unremarkable. [facility] Corie Garza MD - 03/17/2023 Interpreted By: Corie Garza, STUDY: XR CHEST 1 VIEW; 03/17/2023 12:41 pm INDICATION: Signs/Symptoms:Stat us post NG tube placement. COMPARISON: None available ACCESSION NUMBER(S): [id number] ORDERING CLINICIAN: TIFFANIE MENDEZ FINDINGS: RESULT: Nasogastric tube is noted with tip in the upper esophagus at the level of the clavicular heads. The cardiac silhouette is within normal limits for size. Mediastinal contours are unremarkable. The lungs demonstrate no infiltrate or area of atelectasis. The osseous structures are unremarkable. IMPRESSION: Nasogastric tube tip is noted at the level of the upper esophagus at the level of the clavicular heads. The nasogastric tube removed itself from the patient soon after this exam. Signed by: Corie Garza 03/17/2023 4:19 PM Dictation workstation: [id number] [facility] Work Phone: [facility] Work Phone: Radiology Study observation (narrative) [facility] Work Phone: XR Chest Single viewOrdered By: Nya Ahmadi on 03-17-2023 [facility] Work Phone: BMPon 03-16-2023 Anion gap [Moles/Vol] 11 mmol/L Normal 6-16 [facility] Comment on above: Performed By: #### 2 266322, 3669454, 0699296, 6250831, 14344757, 0514563 ####[facility] [address] [place] [address] BUN/Creat Ratio 10 No Units Normal 10-20 [facility] Comment on above: Performed By: #### 2 188659, 8971578, 4218329, 6999117, 81543691, 3748624 ####[facility] [address] [place] [address] Calcium [Mass/Vol] 8.5 mg/dL Low 8.9-11.1 [facility] Comment on above: Performed By: #### 2 141048, 1826007, 0192114, 5816608, 03931146, 4989223 ####[facility] [address] [place] [address] Chloride [Moles/Vol] 109 mmol/L Normal 101-111 [facility] Comment on above: Performed By: #### 2 412111, 7286333, 1250436, 8266444, 28833972, 5345199 ####[facility] [address] [place] [address] CO2 [Moles/Vol] 24 mmol/L Normal 21-31 [facility] Comment on above: Performed By: #### 2 294825, 7150955, 3629697, 6024498, 80175254, 4971425 ####[facility] [address] [place] [address] Creatinine [Mass/Vol] 0.8 mg/dL Normal 0.5-1.3 [facility] Comment on above: Performed By: #### 2 973033, 5973165, 0282928, 7906072, 44686521, 7558790 ####[facility] [address] [place] [address] Glucose [Mass/Vol] 77 mg/dL Normal 55-199 [facility] Comment on above: Performed By: #### 2 147819, 9350307, 1683185, 6709168, 22626178, 9853443 ####[facility] [address] [place] [address] Potassium [Moles/Vol] 3.7 mmol/L Normal 3.5-5.3 [facility] Comment on above: Performed By: #### 2 022967, 2744566, 2176952, 1191524, 46169483, 5930244 ####[facility] [address] [place] [address] Sodium [Moles/Vol] 140 mmol/L Normal 135-145 [facility] Comment on above: Performed By: #### 2 357507, 0227942, 7904499, 5446971, 14939656, 8116930 ####[facility] [address] [place] [address] Urea nitrogen [Mass/Vol] 8 mg/dL Normal 5-21 [facility] Comment on above: Performed By: #### 2 540233, 5995038, 2705672, 0055658, 19463076, 3178333 ####[facility] [address] [place] [address] CBC W Auto Differential pane l (Bld)on 03-16-2023 Basophils (Bld) [#/Vol] 0.07 x10*3/uL Normal 0.00-0.10 [facility] Comment on above: Performed By: #### 5 7021-8 ####MELISA Galvan (99482)[facility] ()[address] [place] [address] Basophils/100 WBC (Bld) 1.4 % Normal 0.0-2.0 [facility] Comment on above: Performed By: #### 5 7021-8 ####MELISA Galvan (04047)[facility] ()[address] [place] [address] Eosinophils (Bld) [#/Vol] 0.50 x10*3/uL Normal 0.00-0.70 [facility] Comment on above: Performed By: #### 5 7021-8 ####MELISA Galvan (02434)[facility] ()[address] [place] [address] Eosinophils/100 WBC (Bld) 9.9 % Normal 0.0-6.0 [facility] Comment on above: Performed By: #### 5 7021-8 ####MELISA Galvan (60672)[facility] ()[address] [place] [address] Erythrocyte distribution width (RBC) [Ratio] 12.3 % Normal 11.5-14.5 [facility] Comment on above: Performed By: #### 5 7021-8 ####MELISA Galvan (23608)[facility] ()[address] [place] [address] Hematocrit (Bld) [Volume fraction] 33.4 % Low 36.0-46.0 [facility] Comment on above: Performed By: #### 5 7021-8 ####MELISA Galvan (43022)[facility] ()[address] [place] [address] Hemoglobin (Bld) [Mass/Vol] 10.8 g/dL Low 12.0-16.0 [facility] Comment on above: Performed By: #### 5 7021-8 ####MELISA Galvan (29870)[facility] ()[address] [place] [address] Immature granulocytes (Bld) [#/Vol] 0.01 x10*3/uL Normal 0.00-0.70 [facility] Comment on above: Performed By: #### 5 7021-8 ####MELISA Galvan (03817)[facility] ()[address] [place] [address] Immature granulocytes/100 WBC (Bld) 0.2 % Normal 0.0-0.9 [facility] Comment on above: Result Comment: Janny ture Granulocyte Count (IG) includes promyelocytes, myelocytes and metamyelocytes but does not include bands. Percent differential counts (%) should be interpreted in the context of the absolute cell counts (cells/UL). Performed By: #### 5 7021-8 ####MELISA Galvan (34733)[facility] ()[address] [place] [address] Lymphocytes (Bld) [#/Vol] 1.70 x10*3/uL Normal 1.20-4.80 [facility] Comment on above: Performed By: #### 5 7021-8 ####MELISA Galvan (26045)[facility] ()[address] [place] [address] Lymphocytes/100 WBC (Bld) 33.7 % Normal 13.0-44.0 [facility] Comment on above: Performed By: #### 5 7021-8 ####MELISA Galvan (43459)[facility] ()[address] [place] [address] MCH (RBC) [Entitic mass] 30.5 pg Normal 26.0-34.0 [facility] Comment on above: Performed By: #### 5 7021-8 ####MELISA Galvan (79736)[facility] ()[address] [place] [address] MCHC (RBC) [Mass/Vol] 32.3 g/dL Normal 32.0-36.0 [facility] Comment on above: Performed By: #### 5 7021-8 ####MELISA Galvan (59810)[facility] ()[address] [place] [address] MCV (RBC) [Entitic vol] 94 fL Normal 80-100 [facility] Comment on above: Performed By: #### 5 7021-8 ####MELISA Galvan (14635)[facility] ()[address] [place] [address] Monocytes (Bld) [#/Vol] 0.31 x10*3/uL Normal 0.10-1.00 [facility] Comment on above: Performed By: #### 5 7021-8 ####MELISA Galvan (10293)[facility] ()[address] [place] [address] Monocytes/100 WBC (Bld) 6.2 % Normal 2.0-10.0 [facility] Comment on above: Performed By: #### 5 7021-8 ####MELISA Galvan (43636)[facility] ()[address] [place] [address] Neutrophils (Bld) [#/Vol] 2.45 x10*3/uL Normal 1.20-7.70 [facility] Comment on above: Result Comment: Perc ent differential counts (%) should be interpreted in the context of the absolute cell counts (cells/uL). Performed By: #### 5 7021-8 ####MELISA Galvan (16032)[facility] ()[address] [place] [address] Neutrophils/100 WBC (Bld) 48.6 % Normal 40.0-80.0 [facility] Comment on above: Performed By: #### 5 7021-8 ####MELISA Galvan (49978)[facility] ()[address] [place] [address] Nucleated RBC/100 WBC (Bld) [Ratio] 0.0 /100 WBCs Normal 0.0-0.0 [facility] Comment on above: Performed By: #### 5 7021-8 ####MELISA Galvan (59306)[facility] ()[address] [place] [address] Platelets (Bld) [#/Vol] 273 x10*3/uL Normal 150-450 [facility] Comment on above: Performed By: #### 5 7021-8 ####MELISA Galvan (88303)[facility] ()[address] [place] [address] RBC (Bld) [#/Vol] 3.54 x10*6/uL Low 4.00-5.20 [facility] Comment on above: Performed By: #### 5 7021-8 ####MELISA Galvan (45878)[facility] ()[address] [place] [address] WBC (Bld) [#/Vol] 5.0 x10*3/uL Normal 4.4-11.3 [facility] Comment on above: Performed By: #### 5 7021-8 ####MELISA Galvan (75614)[facility] (MW)[address] [place] [address] Basophils (Bld) [#/Vol] 0.07 10*3/uL [facility] Basophils/100 WBC (Bld) 1.4 % 0.0 - 2.0 % [facility] Eosinophils (Bld) [#/Vol] 0.50 10*3/uL [facility] Eosinophils/100 WBC (Bld) 9.9 % 0.0 - 6.0 % [facility] Erythrocyte distribution width (RBC) [Ratio] 12.3 % 11.5 - 14.5 % [facility] Hematocrit (Bld) [Volume fraction] 33.4 % Low 36.0 - 46.0 % [facility] Hemoglobin (Bld) [Mass/Vol] 10.8 g/dL Low 12.0 - 16.0 g/dL [facility] Immature granulocytes (Bld) [#/Vol] 0.01 10*3/uL [facility] Immature granulocytes/100 WBC (Bld) 0.2 % 0.0 - 0.9 % [facility] Comment on above: Immature Granulocyte Count (IG) includes promyelocytes, myelocytes and metamyelocytes but does not include bands. Percent differential counts (%) should be interpreted in the context of the absolute cell counts (cells/UL). Interpretation and review of laboratory results Abnormal [facility] Lymphocytes (Bld) [#/Vol] 1.70 10*3/uL [facility] Lymphocytes/100 WBC (Bld) 33.7 % 13.0 - 44.0 % [facility] MCH (RBC) [Entitic mass] 30.5 pg 26.0 - 34.0 pg [facility] MCHC (RBC) [Mass/Vol] 32.3 g/dL 32.0 - 36.0 g/dL [facility] MCV (RBC) [Entitic vol] 94 fL 80 - 100 fL [facility] Monocytes (Bld) [#/Vol] 0.31 10*3/uL [facility] Monocytes/100 WBC (Bld) 6.2 % 2.0 - 10.0 % [facility] Neutrophils (Bld) [#/Vol] 2.45 10*3/uL [facility] Comment on above: Percent differential counts (%) should be interpreted in the context of the absolute cell counts (cells/uL). Neutrophils/100 WBC (Bld) 48.6 % 40.0 - 80.0 % [facility] Nucleated RBC/100 WBC (Bld) [Ratio] 0.0 % [facility] Platelets (Bld) [#/Vol] 273 10*3/uL [facility] RBC (Bld) [#/Vol] 3.54 10*6/uL Low [facility] WBC (Bld) [#/Vol] 5.0 10*3/uL [facility] CBC w/ Auto Diffon 4 Basophil Absolute 0.1 E9/L Normal 0.0-0.2 [facility] Comment on above: Performed By: #### 2 825373, 5398066, 2349123, 3362191, 86695456, 3661974 ####[facility] [address] [place] [address] Basophils/100 WBC (Bld) 2.3 % High 0.0-2.0 [facility] Comment on above: Performed By: #### 2 343102, 8408524, 2784695, 7443879, 77728595, 3982984 ####[facility] [address] [place] [address] Eos Absolute 0.5 E9/L Normal 0.0-0.5 [facility] Comment on above: Performed By: #### 2 173723, 5349137, 6943352, 3102737, 97336689, 0828574 ####[facility] [address] [place] [address] Eosinophils/100 WBC (Bld) 10.3 % High 0.0-8.0 [facility] Comment on above: Performed By: #### 2 573678, 4085464, 1896091, 7901633, 55344264, 3398700 ####[address] [place] [address] Erythrocyte distribution width (RBC) [Ratio] 13.2 % Normal 10.9-14.2 [facility] Comment on above: Performed By: #### 2 067035, 3450048, 9998453, 3491100, 34408867, 5052630 ####[address] [address] Hematocrit (Bld) [Volume fraction] 38.0 % Normal 34.0-46.0 [facility] Comment on above: Performed By: #### 2 656959, 3798883, 3427143, 2622116, 06058881, 9555153 ####[address] [address] Hemoglobin (Bld) [Mass/Vol] 12.5 g/dL Normal 12.0-16.0 [facility] Comment on above: Performed By: #### 2 114099, 3855891, 1542927, 9052831, 97172708, 2584530 ####[address] [address] Lymph Absolute 1.5 E9/L Normal 1.0-4.0 [facility] Comment on above: Performed By: #### 2 533409, 4225679, 4646366, 5363370, 29718150, 0451323 ####[address] [address] Lymphocytes/100 WBC (Bld) 32.0 % Normal 14.0-50.0 [facility] Comment on above: Performed By: #### 2 713113, 6677895, 5419074, 0510353, 63182667, 7245255 ####[address] [address] MCH (RBC) [Entitic mass] 29.7 pg Normal 27.0-34.0 [facility] Comment on above: Performed By: #### 2 621901, 3195299, 2972168, 3894842, 91872205, 3921858 ####[facility] [address] [place] [address] MCHC (RBC) [Mass/Vol] 33.0 g/dL Normal 31.4-36.0 [facility] Comment on above: Performed By: #### 2 994852, 9201380, 4629049, 1729058, 84495771, 2356127 ####[address] [address] MCV (RBC) [Entitic vol] 89.8 fL Normal 80.0-100.0 [facility] Comment on above: Performed By: #### 2 135419, 5519969, 9016191, 3719134, 09559568, 9113062 ####[address] [address] [place] Absolute 0.3 E9/L Normal 0.2-1.0 [facility] Comment on above: Performed By: #### 2 041045, 5955887, 4542158, 1158702, [id number], [id number] ####[address] [address] Monocytes/100 WBC (Bld) 6.4 % Normal 4.0-14.0 [facility] Comment on above: Performed By: #### 2 079654, 9763469, 5811260, 4157991, 64257072, 5059601 ####[address] [address] Neutro Absolute 2.3 E9/L Normal 2.0-7.5 [facility] Comment on above: Performed By: #### 2 384983, 8794183, 2230773, 0217884, 80272434, 2612626 ####[address] [address] Neutro Auto 49.0 % Normal 36.0-75.0 [facility] Comment on above: Performed By: #### 2 363729, 8173254, 9049159, 7014448, 63399608, 7128007 ####[facility] [address] [place] [address] Platelet 313.0 E9/L Normal 150.0-500.0 [facility] Comment on above: Performed By: #### 2 248659, 9705400, 7045016, 2066931, 75416338, 9546107 ####[facility] [address] [place] [address] Platelet mean volume (Bld) [Entitic vol] 8.7 fL Normal 6.4-10.8 [facility] Comment on above: Performed By: #### 2 726348, 2620892, 6483366, 7419992, 19919590, 4790723 ####[facility] [address] [place] [address] RBC 4.2 E12/L Low 4.3-5.9 [facility] Comment on above: Performed By: #### 2 230902, 2483974, 6760645, 3055110, 33201777, 8834208 ####[facility] [address] [place] [address] WBC 4.8 E9/L Normal 4.0-11.0 [facility] Comment on above: Performed By: #### 2 365979, 7135425, 6130406, 1184581, 05684463, 1034123 ####[facility] [address] [place] [address] CHEMISTRYOrdered By: SYSTEM SYSTEM on 03-16-2023 Albumin [Mass/Vol] 3.8 g/dL Normal 3.3 - 5.0 gm/dL R emisol Chem Albumin/Globulin [Mass ratio] 1.5 {ratio} Normal 1.1 - 2.2 Remisol Chem Alk Phos 62 [iU]/d Normal 21 - 98 Int._Unit/L Remis ol Chem ALT 21 [iU]/d Normal 6 - 46 Int._Unit/L Remiso l Chem Anion gap [Moles/Vol] 11 mmol/L Normal 6 - 16 mEq/L Remisol Chem AST 37 [iU]/d Normal 5 - 43 Int._Unit/L Remiso l Chem Bili Direct 0.1 mg/dL Normal 0.0 - 0.4 mg/dL Remisol Chem Bili Indirect 0.2 mg/dL Normal 0.1 - 0.9 mg/dL Remiso l Chem Bili Total 0.3 mg/dL Normal 0.0 - 1.1 mg/dL Remisol C hem Calcium [Mass/Vol] 8.5 mg/dL Low 8.9 - 11.1 mg/dL Remisol Chem Chloride [Moles/Vol] 109 mmol/L Normal 101 - 111 mmol/L Remisol Chem CO2 [Moles/Vol] 24 mmol/L Normal 21 - 31 mmol/L Remis ol Chem Creatinine [Mass/Vol] 0.8 mg/dL Normal 0.5 - 1.3 mg/dL Remisol Chem eGFR 99 mL/min/1.73 m2 Normal >=59mL/min/1.73 m2 Remisol Chem Globulin (S) [Mass/Vol] 2.6 g/dL Normal 1.4 - 4.0 gm/dL Remisol Chem Glucose [Mass/Vol] 77 mg/dL Normal 55 - 199 mg/dL Re misol Chem Lactic Acid Lvl 0.6 mmol/L Normal 0.5 - 2.2 mmol/L Rem isol Chem Lipase Lvl 95 unit/L High 13 - 58 unit/L Remisol Ch em Potassium [Moles/Vol] 3.7 mmol/L Normal 3.5 - 5.3 mmol/L Remisol Chem Protein [Mass/Vol] 6.4 g/dL Normal 6.0 - 7.8 gm/dL R emisol Chem Sodium [Moles/Vol] 140 mmol/L Normal 135 - 145 mmol/L Remisol Chem Urea nitrogen [Mass/Vol] 8 mg/dL Normal 5 - 21 mg/dL Remisol Chem Urea nitrogen/Creatinine [Mass ratio] 10 mg/mg Normal 10 - [address] ABDOMEN PELVIS W IV CONTR Daljit 03-16-2023 CT ABDOMEN PELVIS W IV CONTRAST Interpreted By: Corie Garza, STUDY: CT ABDOMEN PELVIS W IV CONTRAST; 03/16/2023 5:27 pm INDICATION: Signs/Symptoms:abdo kerry pain - with oral and IV contrast. COMPARISON: None.. ACCESSION NUMBER(S): [id number] ORDERING CLINICIAN: TIFFANIE MENDEZ TECHNIQUE: Oral contrast was not administered. 75 ml Omnipaque [address] of the Abdomen and Pelvis with intravenous contrast was performed. Axial, sagittal and coronal reformatted images were reviewed. All CT examinations are performed with 1 or more of the following dose reduction techniques: Automated exposure control, adjustment of mA and/or kv according to patient's size, or use of iterative reconstruction techniques. FINDINGS: Lower Chest: Ground-glass densities are noted in the bilateral lung bases dependently. Abdomen: Liver: Multiple well-circumscribed cystic lesions are noted involving both lobes of the liver, the largest on the right measuring approximately 2.0 cm Bile Ducts: Normal caliber. Gallbladder: Surgically absent Pancreas: Unremarkable. Spleen: Unremarkable. Adrenals: Normal. Kidneys: Normal. 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 Pelvis: No pelvic masses. Bladder: Unremarkable. Bowel: No bowel wall thickening or abnormal distention to suggest bowel obstruction. Mesenteric Lymph Nodes: No enlarged mesenteric lymph nodes. Peritoneum: Small amount of free fluid is noted adjacent to the spleen and within the pelvis. Vessels: Unremarkable Retroperitoneum: No retroperitoneal adenopathy. Abdominal Wall: Unremarkable. Bones: No acute bony abnormalities. IMPRESSION: Patchy ground-glass densities in the bilateral lung bases may represent atelectasis. Multiple cystic lesions scattered throughout both lobes of the liver. Postsurgical changes of Tan-en-Y gastric bypass. MACRO: none Signed by: Corie Garza 03/16/2023 5:46 PM Dictation workstation: [id number] [facility] CT Abdomen and Pelvis W cont rast Brenden 03-16-2023 Patchy ground-glass densities in the bilateral lung bases may represent atelectasis. Multiple cystic lesions scattered throughout both lobes of the liver. Postsurgical changes of Tan-en-Y gastric bypass. MACRO: none Signed by: Corie Garza 03/16/2023 5:46 PM Dictation workstation: [id number] MMODAL Interpreted By: Corie Garza, STUDY: CT ABDOMEN PELVIS W IV CONTRAST; 03/16/2023 5:27 pm INDICATION: Signs/Symptoms:abdo kerry pain - with oral and IV contrast. COMPARISON: None.. ACCESSION NUMBER(S): [id number] ORDERING CLINICIAN: TIFFANIE SMALL TECHNIQUE: Oral contrast was not administered. 75 ml Omnipaque [address] of the Abdomen and Pelvis with intravenous contrast was performed. Axial, sagittal and coronal reformatted images were reviewed. All CT examinations are performed with 1 or more of the following dose reduction techniques: Automated exposure control, adjustment of mA and/or kv according to patient's size, or use of iterative reconstruction techniques. FINDINGS: Lower Chest: Ground-glass densities are noted in the bilateral lung bases dependently. Abdomen: Liver: Multiple well-circumscribed cystic lesions are noted involving both lobes of the liver, the largest on the right measuring approximately 2.0 cm Bile Ducts: Normal caliber. Gallbladder: Surgically absent Pancreas: Unremarkable. Spleen: Unremarkable. Adrenals: Normal. Kidneys: Normal. 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 Pelvis: No pelvic masses. Bladder: Unremarkable. Bowel: No bowel wall thickening or abnormal distention to suggest bowel obstruction. Mesenteric Lymph Nodes: No enlarged mesenteric lymph nodes. Peritoneum: Small amount of free fluid is noted adjacent to the spleen and within the pelvis. Vessels: Unremarkable Retroperitoneum: No retroperitoneal adenopathy. Abdominal Wall: Unremarkable. Bones: No acute bony abnormalities. [facility] MMODAL Corie Garza MD - 03/16/2023 Interpreted By: Corie Garza, STUDY: CT ABDOMEN PELVIS W IV CONTRAST; 03/16/2023 5:27 pm INDICATION: Signs/Symptoms:abdo kerry pain - with oral and IV contrast. COMPARISON: None.. ACCESSION NUMBER(S): [id number] ORDERING CLINICIAN: TIFFANIE MENDEZ TECHNIQUE: Oral contrast was not administered. 75 ml Omnipaque [address] of the Abdomen and Pelvis with intravenous contrast was performed. Axial, sagittal and coronal reformatted images were reviewed. All CT examinations are performed with 1 or more of the following dose reduction techniques: Automated exposure control, adjustment of mA and/or kv according to patient's size, or use of iterative reconstruction techniques. FINDINGS: Lower Chest: Ground-glass densities are noted in the bilateral lung bases dependently. Abdomen: Liver: Multiple well-circumscribed cystic lesions are noted involving both lobes of the liver, the largest on the right measuring approximately 2.0 cm Bile Ducts: Normal caliber. Gallbladder: Surgically absent Pancreas: Unremarkable. Spleen: Unremarkable. Adrenals: Normal. Kidneys: Normal. 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 Pelvis: No pelvic masses. Bladder: Unremarkable. Bowel: No bowel wall thickening or abnormal distention to suggest bowel obstruction. Mesenteric Lymph Nodes: No enlarged mesenteric lymph nodes. Peritoneum: Small amount of free fluid is noted adjacent to the spleen and within the pelvis. Vessels: Unremarkable Retroperitoneum: No retroperitoneal adenopathy. Abdominal Wall: Unremarkable. Bones: No acute bony abnormalities. IMPRESSION: Patchy ground-glass densities in the bilateral lung bases may represent atelectasis. Multiple cystic lesions scattered throughout both lobes of the liver. Postsurgical changes of Tan-en-Y gastric bypass. MACRO: none Signed by: Corie Garza 03/16/2023 5:46 PM Dictation workstation: [id number] [facility] Work Phone: Radiology Study observation (narrative) [facility] Work Phone: CT Abdomen and Pelvis W cont rast IVOrdered By: Corie Garza on 03-16-2023 [facility] Work Phone: Comprehensive metabolic 2000 panelon 03-16-2023 Albumin [Mass/Vol] 3.0 g/dL Low 3.5-5.0 [facility] Comment on above: Performed By: #### 2 4323-8 ####MELISA Galvan ([id number])[facility] ()[address] [place] [address] ALP (Bld) [Catalytic activity/Vol] 58 U/L Normal 35-125 [facility] Comment on above: Performed By: #### 2 4323-8 ####MELISA Galvan ([id number])[facility] ()[address] [address] ALT [Catalytic activity/Vol] 13 U/L Normal 5-40 [facility] Comment on above: Performed By: #### 2 4323-8 ####MELISA Galvan ([id number])[facility] ()[address] [place] [address] Anion gap [Moles/Vol] 10 mmol/L Normal <=19 [facility] Comment on above: Performed By: #### 2 432-8 ####MELISA Galvan ([id number])[facility] ()[address] [place] [address] AST [Catalytic activity/Vol] 32 U/L Normal 5-40 [facility] Comment on above: Performed By: #### 2 432-8 ####MELISA Galvan ([id number])[facility] ()[address] [place] [address] Bilirubin [Mass/Vol] mg/dL Normal 0.1-1.2 [facility] Comment on above: Performed By: #### 2 4322-8 ####MELISA Galvan ([id number])[facility] ()[address] [place] [address] Calcium [Mass/Vol] 7.9 mg/dL Low 8.5-10.4 [facility] Comment on above: Performed By: #### 2 432-8 ####MELISA Galvan (79592)[facility] ()[address] [place] [address] Chloride [Moles/Vol] 110 mmol/L High 97-107 [facility] Comment on above: Performed By: #### 2 432-8 ####MELISA Galvan (37913)[facility] ()[address] [place] [address] CO2 [Moles/Vol] 21 mmol/L Low 24-31 [facility] Comment on above: Performed By: #### 2 432-8 ####MELISA Galvan (95814)[facility] ()[address] [place] [address] Creatinine [Mass/Vol] 0.80 mg/dL Normal 0.40-1.60 [facility] Comment on above: Performed By: #### 2 432-8 ####MELISA Galvan (04877)[facility] ()[address] [place] [address] GFR/1.73 sq M.predicted MDRD (S/P/Bld) [Vol rate/Area] mL/min/{1.73_m2} Normal >60 [facility] Comment on above: Result Comment: Calc ulations of estimated GFR are performed using the 2020 CKD-EPI Study Refit equation without the race variable for the IDMS-Traceable creatinine methods. https://jasn.asnjournals.org/content/early//ASN.55305424 88 Performed By: #### 2 4323-8 ####MEILSA Galvan (50323)[facility] ()[address] [place] [address] Glucose [Mass/Vol] 82 mg/dL Normal 65-99 [facility] Comment on above: Performed By: #### 2 4323-8 ####MELISA Galvan (02234)[facility] ()[address] [place] [address] Potassium [Moles/Vol] 3.7 mmol/L Normal 3.4-5.1 [facility] Comment on above: Performed By: #### 2 4323-8 ####MELISA Galvan (86472)[facility] ()[address] [place] [address] Protein [Mass/Vol] 5.5 g/dL Low 5.9-7.9 [facility] Comment on above: Performed By: #### 2 4323-8 ####MELISA Galvan (41965)[facility] ()[address] [place] [address] Sodium [Moles/Vol] 141 mmol/L Normal 133-145 [facility] Comment on above: Performed By: #### 2 4323-8 ####MELISA Galvan (87714)[facility] ()[address] [place] [address] Urea nitrogen [Mass/Vol] 8 mg/dL Normal 8-25 [facility] Comment on above: Performed By: #### 2 4323-8 ####MELISA Galvan ([id number])[facility] (MW)[address] [place] [address] Albumin [Mass/Vol] 3.0 g/dL Low 3.5 - 5.0 g/dL [facility] ALP (Bld) [Catalytic activity/Vol] 58 U/L 35 - 125 U/L [facility] ALT [Catalytic activity/Vol] 13 U/L 5 - 40 U/L [facility] Anion gap [Moles/Vol] 10 mmol/L NINF - 19 mmol/L [facility] AST [Catalytic activity/Vol] 32 U/L 5 - 40 U/L [facility] Bilirubin [Mass/Vol] mg/dL 0.1 - 1.2 mg/dL [facility] Calcium [Mass/Vol] 7.9 mg/dL Low 8.5 - 10.4 mg/dL [facility] Chloride [Moles/Vol] 110 mmol/L High 97 - 107 mmol/L [facility] CO2 [Moles/Vol] 21 mmol/L Low 24 - 31 mmol/L [facility] Creatinine [Mass/Vol] 0.80 mg/dL 0.40 - 1.60 mg/dL [facility] eGFR - PINF [facility] Comment on above: Calculations of jessica mated GFR are performed using the 2020 CKD-EPI Study Refit equation without the race variable for the IDMS-Traceable creatinine methods. https://jasn.asnjournals.org/content/early/ASN.30558626 88 Glucose [Mass/Vol] 82 mg/dL 65 - 99 mg/dL [facility] Interpretation and review of laboratory results Abnormal [facility] Potassium [Moles/Vol] 3.7 mmol/L 3.4 - 5.1 mmol/L [facility] Protein [Mass/Vol] 5.5 g/dL Low 5.9 - 7.9 g/dL [facility] Sodium [Moles/Vol] 141 mmol/L 133 - 145 mmol/L [facility] Urea nitrogen [Mass/Vol] 8 mg/dL 8 - 25 mg/dL [facility] Consent for Treatmenton 02-17 Consent for Treatment [id number] 972#1.00TIFF Normal [facility] Discharge Instructionson Discharge Instructions [id number] 21#1.00TIFF Normal [facility] Comment on above: Other Comment: wrong folder ED Clinical Summaryon 2023 ED Clinical Summary Normal [facility] ED Note-Nursingon 03-16-2023 ED Note-Nursing called report to Thu PRICE, . Normal [facility] ED Note-Physicianon 03-16-19 ED Note-Physician Normal [facility] Comment on above: Result Comment: Elec tronically Signed By: Earnest Jett DO\.br\Date and Time Signed: 03/16/23 11:17 EST ED Patient Education Noteon 03-16-2023 ED Patient Education Note Normal [facility] ED Patient Summaryon 024 ED Patient Summary Normal [facility] EMS Documentationon 03-16-19 EMS Documentation Please click on link to see report Normal [facility] Comment on above: Result Comment: Miss ing Attachment - attachment exceeds size limitation [id number] Can be viewed in source system HEMATOLOGYOrdered By: SYSTEM SYSTEM on 03-16-2023 Basophil Absolute 0.1 E9/L Normal 0.0 - 0.2 E9/L Rem isol Heme Basophils/100 WBC (Bld) 2.3 % High 0.0 - 2.0 % Remisol Heme Eos Absolute 0.5 E9/L Normal 0.0 - 0.5 E9/L Remisol Heme Eosinophils/100 WBC (Bld) 10.3 % High 0.0 - 8.0 % Remisol Heme Erythrocyte distribution width (RBC) [Ratio] 13.2 % Normal 10.9 - 14.2 % Remisol Heme Hematocrit (Bld) [Volume fraction] 38.0 % Normal 34.0 - 46.0 % Remisol Heme Hemoglobin (Bld) [Mass/Vol] 12.5 g/dL Normal 12.0 - 16.0 gm/dL Remisol Heme Lymph Absolute 1.5 E9/L Normal 1.0 - 4.0 E9/L Remiso l Heme Lymphocytes/100 WBC (Bld) 32.0 % Normal 14.0 - 50.0 % Remisol Heme MCH (RBC) [Entitic mass] 29.7 pg Normal 27.0 - 34.0 pg Remisol Heme MCHC (RBC) [Mass/Vol] 33.0 g/dL Normal 31.4 - 36.0 gm/dL Remisol Heme MCV (RBC) [Entitic vol] 89.8 fL Normal 80.0 - 100.0 fL Remisol Heme Lewis Absolute 0.3 E9/L Normal 0.2 - 1.0 E9/L Remisol Heme Monocytes/100 WBC (Bld) 6.4 % Normal 4.0 - 14.0 % Remisol Heme Neutro Absolute 2.3 E9/L Normal 2.0 - 7.5 E9/L Remis ol Heme Neutro Auto 49.0 % Normal 36.0 - 75.0 % Remisol He me Platelet 313.0 E9/L Normal 150.0 - 500.0 E9/L Remiso l Heme Platelet mean volume (Bld) [Entitic vol] 8.7 fL Normal 6.4 - 10.8 fL Remisol Heme RBC 4.2 E12/L Low 4.3 - 5.9 E12/L Remisol H helen WBC 4.8 E9/L Normal 4.0 - 11.0 E9/L Remisol H helen Hep Func Panelon 03-16-2023 Albumin [Mass/Vol] 3.8 g/dL Normal 3.3-5.0 [facility] Comment on above: Performed By: #### 2 185586, 4042485, 9742762, 8352044, 20848451, 2625955 ####[facility] [address] [place] [address] Albumin/Globulin [Mass ratio] 1.5 {ratio} Normal 1.1-2.2 [facility] Comment on above: Performed By: #### 2 755528, 9544240, 5139822, 8027379, 41360686, 7646008 ####[facility] [address] [place] [address] Alk Phos 62 Int._Unit/L Normal 21-98 [facility] Comment on above: Performed By: #### 2 215553, 5257030, 7943353, 4359717, 80591028, 9886049 ####[facility] [address] [place] [address] ALT 21 Int._Unit/L Normal 6-46 [facility] Comment on above: Performed By: #### 2 793829, 1567056, 0789438, 5640895, 35361798, 0930747 ####[facility] [address] [place] [address] AST 37 Int._Unit/L Normal 5-43 [facility] Comment on above: Performed By: #### 2 339898, 6795101, 4576737, 0346320, 44324345, 6880373 ####[facility] [address] [place] [address] Bili Direct 0.1 mg/dL Normal 0.0-0.4 [facility] Comment on above: Performed By: #### 2 566011, 1264168, 9951397, 2926727, 42322741, 5026136 ####[facility] [address] [place] [address] Bili Indirect 0.2 mg/dL Normal 0.1-0.9 [facility] Comment on above: Performed By: #### 2 946229, 9701973, 2382081, 8841866, 67591554, 9848072 ####[facility] [address] [place] [address] Bili Total 0.3 mg/dL Normal 0.0-1.1 [facility] Comment on above: Performed By: #### 2 675053, 3862227, 3347412, 5342227, 77735278, 1902013 ####[facility] [address] [place] [address] Globulin (S) [Mass/Vol] 2.6 g/dL Normal 1.4-4.0 [facility] Comment on above: Performed By: #### 2 026903, 4023340, 2235476, 3079290, 54564484, 8066671 ####[facility] [address] [place] [address] Protein [Mass/Vol] 6.4 g/dL Normal 6.0-7.8 [facility] Comment on above: Performed By: #### 2 420649, 4433242, 3523561, 8862344, 44139911, 6199339 ####[facility] [address] [place] [address] Influenza virus A and B and SARS-CoV-2 (COVID-19) identified HANK+probe Nom (Resp)on 03-16-2023 FLUAV RNA HANK+probe Ql (Resp) Not detected Normal Not Detected [facility] Comment on above: Order Comment: This assay has received FDA Emergency Use Authorization (EUA) and is only authorized for the duration of time that circumstances exist to justify the authorization of the emergency use of in vitro diagnostic tests for the detection of SARS-CoV-2 virus and/or diagnosis of COVID-19 infection under section 564(b)(1) of the Act, 21 U.S.C. 360bbb-3(b)(1). Testing for SARS-CoV-2 is only recommended for patients who meet current clinical and/or epidemiological criteria as defined by federal, state, or local public health directives. This assay is an in vitro diagnostic nucleic acid amplification test for the qualitative detection of SARS-CoV-2, Influenza A, and Influenza B from nasopharyngeal specimens and has been validated for use at [facility]. Negative results do not preclude COVID-19 infections or Influenza A/B infections, and should not be used as the sole basis for diagnosis, treatment, or other management decisions. If Influenza A/B and RSV PCR results are negative, testing for Parainfluenza virus, Adenovirus and Metapneumovirus is routinely performed for [facility] pediatric oncology and intensive care inpatients, and is available on other patients by placing an add-on request. Performed By: #### 5 2969-3 #### ALON Johnson ([id number]) [facility] ([facility]) [address] [place] [address] FLUBV RNA HANK+probe Ql (Resp) Not detected Normal Not Detected [facility] Comment on above: Order Comment: This assay has received FDA Emergency Use Authorization (EUA) and is only authorized for the duration of time that circumstances exist to justify the authorization of the emergency use of in vitro diagnostic tests for the detection of SARS-CoV-2 virus and/or diagnosis of COVID-19 infection under section 564(b)(1) of the Act, 21 U.S.C. 360bbb-3(b)(1). Testing for SARS-CoV-2 is only recommended for patients who meet current clinical and/or epidemiological criteria as defined by federal, state, or local public health directives. This assay is an in vitro diagnostic nucleic acid amplification test for the qualitative detection of SARS-CoV-2, Influenza A, and Influenza B from nasopharyngeal specimens and has been validated for use at [facility]. Negative results do not preclude COVID-19 infections or Influenza A/B infections, and should not be used as the sole basis for diagnosis, treatment, or other management decisions. If Influenza A/B and RSV PCR results are negative, testing for Parainfluenza virus, Adenovirus and Metapneumovirus is routinely performed for [facility] pediatric oncology and intensive care inpatients, and is available on other patients by placing an add-on request. Performed By: #### 5 2969-3 #### ALON Johnson ([id number]) [facility] ([facility]) [address] [place] [address] SARS-CoV-2 (COVID-19) RNA HANK+probe Ql (Resp) Not detected Normal Not Detected [facility] Comment on above: Order Comment: This assay has received FDA Emergency Use Authorization (EUA) and is only authorized for the duration of time that circumstances exist to justify the authorization of the emergency use of in vitro diagnostic tests for the detection of SARS-CoV-2 virus and/or diagnosis of COVID-19 infection under section 564(b)(1) of the Act, 21 U.S.C. 360bbb-3(b)(1). Testing for SARS-CoV-2 is only recommended for patients who meet current clinical and/or epidemiological criteria as defined by federal, state, or local public health directives. This assay is an in vitro diagnostic nucleic acid amplification test for the qualitative detection of SARS-CoV-2, Influenza A, and Influenza B from nasopharyngeal specimens and has been validated for use at [facility]. Negative results do not preclude COVID-19 infections or Influenza A/B infections, and should not be used as the sole basis for diagnosis, treatment, or other management decisions. If Influenza A/B and RSV PCR results are negative, testing for Parainfluenza virus, Adenovirus and Metapneumovirus is routinely performed for [facility] pediatric oncology and intensive care inpatients, and is available on other patients by placing an add-on request. Performed By: #### 5 2969-3 #### ALON Johnson ([id number]) [facility] ([facility]) [address] [place] [address] FLUAV RNA HANK+probe Ql (Resp) Not detected Not Detected [facility] FLUBV RNA HANK+probe Ql (Resp) Not detected Not Detected [facility] Interpretation and review of laboratory results Normal [facility] SARS-CoV-2 (COVID-19) RNA HANK+probe Ql (Resp) Not detected Not Detected [facility] This assay has received FDA Emergency Use Authorization (EUA) and is only authorized for the duration of time that circumstances exist to justify the authorization of the emergency use of in vitro diagnostic tests for the detection of SARS-CoV-2 virus and/or diagnosis of COVID-19 infection under section 564(b)(1) of the Act, 21 U.S.C. 360bbb-3(b)(1). Testing for SARS-CoV-2 is only recommended for patients who meet current clinical and/or epidemiological criteria as defined by federal, state, or local public health directives. This assay is an in vitro diagnostic nucleic acid amplification test for the qualitative detection of SARS-CoV-2, Influenza A, and Influenza B from nasopharyngeal specimens and has been validated for use at [facility]. Negative results do not preclude COVID-19 infections or Influenza A/B infections, and should not be used as the sole basis for diagnosis, treatment, or other management decisions. If Influenza A/B and RSV PCR results are negative, testing for Parainfluenza virus, Adenovirus and Metapneumovirus is routinely performed for [facility] pediatric oncology and intensive care inpatients, and is available on other patients by placing an add-on request. [facility] Lactic Acidon 03-16-2023 Lactic Acid Lvl 0.6 mmol/L Normal 0.5-2.2 [facility] Comment on above: Performed By: #### 2 901618, 4796704, 1965743, 4725706, 92826286, 3471804 ####[facility] [address] [place] [address] Lipase Levelon 03-16-2023 Lipase Lvl 95 unit/L High 13-58 [facility] Comment on above: Performed By: #### 2 748351, 0490745, 5596933, 8056343, 44295829, 8420850 ####[facility] [address] [place] [address] Pre-Arrival Noteon Pre-Arrival Note Normal [facility] Transfer Documentson 024 Transfer Documents [id number] 04#1.00TIFF Normal [facility] eGFRon 03-16-2023 eGFR 99 mL/min/1.73 m2 Normal >=59 [facility] Comment on above: Order Comment: Order added by Discern Expert. Performed By: #### 2 361239, 7300198, 6865632, 5453737, 50202284, 2322022 ####[facility] [address] [place] [address] BB Draw & Holdon 03-15-2023 BB D&H Sample drawn for Blood Ba Normal [facility] Comment on above: Performed By: #### 2 804904, 59898521, 8900341, 66230924, 7272742, 6725589, 4933488, 54592092, 44506229 ####[facility] [address] [place] [address] BMPon 03-15-2023 Anion gap [Moles/Vol] 12 mmol/L Normal 6-16 [facility] Comment on above: Performed By: #### 2 962362, 61291005, 4353394, 65706183, 3942817, 8660370, 6100462, 38220556, 01799906 ####[facility] [address] [place] [address] BUN/Creat Ratio 10 No Units Normal 10-20 [facility] Comment on above: Performed By: #### 2 228003, 87165940, 0162953, 55408065, 2778678, 2859250, 1636861, 12980208, 66096557 ####[facility] [address] [place] [address] Calcium [Mass/Vol] 8.5 mg/dL Low 8.9-11.1 [facility] Comment on above: Performed By: #### 2 346305, 62085793, 3875862, 38830823, 8392506, 3811265, 1298188, 45785736, 07027650 ####[facility] [address] [place] [address] Chloride [Moles/Vol] 110 mmol/L Normal 101-111 [facility] Comment on above: Performed By: #### 2 027397, 63554815, 1701057, 87451591, 7683512, 1660615, 7669338, 17429452, 51823618 ####[facility] [address] [place] [address] CO2 [Moles/Vol] 22 mmol/L Normal 21-31 [facility] Comment on above: Performed By: #### 2 751298, 68769490, 5917949, 68428041, 9402265, 9332288, 8194247, 98399629, 72723847 ####[facility] [address] [place] [address] Creatinine [Mass/Vol] 0.8 mg/dL Normal 0.5-1.3 [facility] Comment on above: Performed By: #### 2 240403, 45200968, 0135183, 52464250, 2177261, 6965865, 3802840, 82039255, 17857051 ####[facility] [address] [place] [address] Glucose [Mass/Vol] 79 mg/dL Normal 55-199 [facility] Comment on above: Performed By: #### 2 532822, 62528862, 1947010, 07778870, 7225644, 6768181, 0295055, 93797921, 97721773 ####[facility] [address] [place] [address] Potassium [Moles/Vol] 3.6 mmol/L Normal 3.5-5.3 [facility] Comment on above: Performed By: #### 2 358569, 27217215, 4785051, 06774617, 3947352, 3487328, 9548681, 66273614, 41482828 ####[facility] [address] [place] [address] Sodium [Moles/Vol] 140 mmol/L Normal 135-145 [facility] Comment on above: Performed By: #### 2 425619, 67882840, 4483271, 20154815, 4860013, 5452538, 1605723, 32382853, 13183586 ####[facility] [address] [place] [address] Urea nitrogen [Mass/Vol] 8 mg/dL Normal 5-21 [facility] Comment on above: Performed By: #### 2 695507, 48209558, 2912937, 25744628, 5278702, 3912252, 7370882, 07828191, 28479838 ####[facility] [address] [place] [address] CBC w/ Auto Diffon 4 Basophil Absolute 0.1 E9/L Normal 0.0-0.2 [facility] Comment on above: Performed By: #### 2 850811, 82001587, 5897398, 60513134, 5735919, 6314368, 8998220, 25383167, 19429258 ####[address] [place] [address] Basophils/100 WBC (Bld) 0.9 % Normal 0.0-2.0 [facility] Comment on above: Performed By: #### 2 872510, 72963582, 7133099, 95552030, 2554209, 7316480, 1448774, 62332554, 54132339 ####[address] [place] [address] Eos Absolute 0.6 E9/L High 0.0-0.5 [facility] Comment on above: Performed By: #### 2 151219, 93536170, 1349543, 14672822, 3718025, 3019650, 8561443, 57790714, 66771112 ####[address] [address] Eosinophils/100 WBC (Bld) 9.6 % High 0.0-8.0 [facility] Comment on above: Performed By: #### 2 326941, 68893408, 0617537, 92981124, 0748135, 3266383, 8643527, 75061222, 05079150 ####[address] [place] [address] Erythrocyte distribution width (RBC) [Ratio] 13.2 % Normal 10.9-14.2 [facility] Comment on above: Performed By: #### 2 357842, 45108068, 9933964, 31287357, 4898753, 4154125, 0480682, 31472438, 34005142 ####[address] [place] [address] Hematocrit (Bld) [Volume fraction] 36.0 % Normal 34.0-46.0 [facility] Comment on above: Performed By: #### 2 276692, 20739092, 2043913, 59269717, 3802746, 5237098, 7980991, 28255387, 69217713 ####[facility] [address] [place] [address] Hemoglobin (Bld) [Mass/Vol] 12.2 g/dL Normal 12.0-16.0 [facility] Comment on above: Performed By: #### 2 861849, 97126883, 5930409, 49149215, 7990279, 8309067, 3942599, 02881444, 08020088 ####[facility] [address] [place] [address] Lymph Absolute 2.0 E9/L Normal 1.0-4.0 [facility] Comment on above: Performed By: #### 2 948887, 97837765, 1771970, 82641455, 0968115, 0555676, 3369322, 63076022, 08672076 ####[address] [address] Lymphocytes/100 WBC (Bld) 32.4 % Normal 14.0-50.0 [facility] Comment on above: Performed By: #### 2 760025, 52685070, 6768056, 25784071, 0085954, 2314373, 9834647, 53079168, 72370378 ####[address] [place] [address] MCH (RBC) [Entitic mass] 30.6 pg Normal 27.0-34.0 [facility] Comment on above: Performed By: #### 2 239730, 35518372, 9197434, 50755919, 3611985, 3559331, 5543200, 06108307, 93494948 ####[address] [place] [address] MCHC (RBC) [Mass/Vol] 34.3 g/dL Normal 31.4-36.0 [facility] Comment on above: Performed By: #### 2 728417, 29531167, 5891598, 62616920, 6830496, 4448575, 5779345, 27998749, 28040305 ####[address] [place] [address] MCV (RBC) [Entitic vol] 89.0 fL Normal 80.0-100.0 [facility] Comment on above: Performed By: #### 2 944698, 71424562, 7138633, 19371407, 2764872, 6930289, 3060058, 64179685, 02037710 ####[address] [place] [address] Lewis Absolute 0.3 E9/L Normal 0.2-1.0 [facility] Comment on above: Performed By: #### 2 317775, 22228857, 0635386, 00087725, 0224741, 2571422, 2109507, 48696871, 42464569 ####[address] [address] Monocytes/100 WBC (Bld) 5.6 % Normal 4.0-14.0 [facility] Comment on above: Performed By: #### 2 898574, 30693726, 0294953, 45162580, 7118482, 1489682, 7700890, 51650631, 99231606 ####[address] [place] [address] Neutro Absolute 3.2 E9/L Normal 2.0-7.5 [facility] Comment on above: Performed By: #### 2 584422, 43074178, 6488152, 61583714, 9337124, 1660532, 2527813, 62697003, 20795337 ####[address] [place] [address] Neutro Auto 51.5 % Normal 36.0-75.0 [facility] Comment on above: Performed By: #### 2 334450, 66906394, 7030653, 86701652, 3293493, 3903918, 0929556, 13390715, 82545573 ####[facility] [address] [place] [address] Platelet 309.0 E9/L Normal 150.0-500.0 [facility] Comment on above: Result Comment: Demetra meneses with slide review Performed By: #### 2 775278, 14309426, 0756699, 81730734, 2420937, 0151167, 2708478, 85292569, 31817274 ####[facility] [address] [place] [address] Platelet mean volume (Bld) [Entitic vol] 9.1 fL Normal 6.4-10.8 [facility] Comment on above: Performed By: #### 2 825576, 59565953, 7772442, 08016070, 2891478, 8798460, 6789396, 05778891, 43268011 ####[facility] [address] [place] [address] RBC 4.0 E12/L Low 4.3-5.9 [facility] Comment on above: Performed By: #### 2 901865, 33975893, 8292823, 48901558, 7276856, 4978962, 6578465, 50151983, 45964500 ####[facility] [address] [place] [address] WBC 6.1 E9/L Normal 4.0-11.0 [facility] Comment on above: Performed By: #### 2 921835, 88782272, 8377504, 44738048, 3063940, 3327869, 3260202, 30522527, 26807065 ####[facility] [address] [place] [address] CHEMISTRYOrdered By: SYSTEM SYSTEM on 03-15-2023 Lactic Acid Lvl 0.7 mmol/L Normal 0.5 - 2.2 mmol/L Rem isol Chem Albumin [Mass/Vol] 3.6 g/dL Normal 3.3 - 5.0 gm/dL R emisol Chem Albumin/Globulin [Mass ratio] 1.4 {ratio} Normal 1.1 - 2.2 Remisol Chem Alk Phos 64 [iU]/d Normal 21 - 98 Int._Unit/L Remis ol Chem ALT 20 [iU]/d Normal 6 - 46 Int._Unit/L Remiso l Chem Anion gap [Moles/Vol] 12 mmol/L Normal 6 - 16 mEq/L Remisol Chem AST 35 [iU]/d Normal 5 - 43 Int._Unit/L Remiso l Chem Bili Direct 0.0 mg/dL Normal 0.0 - 0.4 mg/dL Remisol Chem Bili Indirect 0.2 mg/dL Normal 0.1 - 0.9 mg/dL Remiso l Chem Bili Total 0.2 mg/dL Normal 0.0 - 1.1 mg/dL Remisol C hem Calcium [Mass/Vol] 8.5 mg/dL Low 8.9 - 11.1 mg/dL Remisol Chem Chloride [Moles/Vol] 110 mmol/L Normal 101 - 111 mmol/L Remisol Chem CO2 [Moles/Vol] 22 mmol/L Normal 21 - 31 mmol/L Remis ol Chem Creatinine [Mass/Vol] 0.8 mg/dL Normal 0.5 - 1.3 mg/dL Remisol Chem eGFR 99 mL/min/1.73 m2 Normal >=59mL/min/1.73 m2 Remisol Chem Globulin (S) [Mass/Vol] 2.6 g/dL Normal 1.4 - 4.0 gm/dL Remisol Chem Glucose [Mass/Vol] 79 mg/dL Normal 55 - 199 mg/dL Re misol Chem Lipase Lvl 115 unit/L High 13 - 58 unit/L Remisol Ch em Potassium [Moles/Vol] 3.6 mmol/L Normal 3.5 - 5.3 mmol/L Remisol Chem Protein [Mass/Vol] 6.2 g/dL Normal 6.0 - 7.8 gm/dL R emisol Chem Sodium [Moles/Vol] 140 mmol/L Normal 135 - 145 mmol/L Remisol Chem Troponin pg/mL Low 10.10 - 27.10 pg/mL Remis ol Chem Comment on above: Interpretive Data: T he 95% CI (Confidence Interval) PPV (Positive Predictive Value) for myocardial infarction in females is 38 pg/mL, in males 51 pg/mL. The results should be used in conjunction with clinical conditions of myocardial infarction. (Access High Sensitivity Troponin I Instructions For Use, Alan Gordy, September 2017) Urea nitrogen [Mass/Vol] 8 mg/dL Normal 5 - 21 mg/dL Remisol Chem Urea nitrogen/Creatinine [Mass ratio] 10 mg/mg Normal 10 - 20 Remisol Chem COAGULATIONOrdered By: Storm rashawn Baca on 03-15-2023 aPTT Coag (PPP) [Time] 32.3 s Normal 25.1 - 36.5 second(s) [facility]ag Comment on above: Interpretive Data: P arameter 15 days - 4 weeks 1 - [...] the same coagulation reagent and instrumentation as [facility]. Currently there are no coagulation studies available worldwide for children to 14 days, and no normal ranges. Heparin therapeutic range (represented by Anti-Factor Xa activity of 0.2 - 0.4 U/mL) corresponds to PTT of 56.6 - 109.0 sec. INR Coag (PPP) [Relative time] 1.1 {INR} Invalid Interpretation Code [facility] Comment on above: Interpretive Data: I NR results are specifically intended to assess patients stabilized on long-term Anticoagulation therapy suggested INR s Less Intensive Anticoagulation 2.0 3.0 Conventional Range 3.0 4.5 PT Coag (PPP) [Time] 12.6 s High 9.4 - 12.5 second(s) [facility] Comment on above: Interpretive Data: 1 5 days - 4 weeks 1 - 5 months 6 -11 months 1-5 years 6-10 years 11 -17 years Mean: 11.2 (9.5-12.6) Mean: 11.0 (9.7-12.8) Mean: 11.0 (9.8-13.0) Mean: 11.3 (9.9-13.4) Mean: 11.7 (10.0-14.6) Mean: 11.8 (10.0 - 14.1) Pediatric Reference ranges were obtained from a study by Stanton Lott et al. prepared from 1437 samples obtained at 7 different centers using the same coagulation reagent and instrumentation as [facility]. Currently there are no coagulation studies available worldwide for children to 14 days, and no normal ranges. CT Abdomen/Pelvis w/o Contra ston 03-15-2023 CT Abdomen/Pelvis w/o Contrast Normal [facility] Consent for Treatmenton 02-16 Consent for Treatment [id number] 3B#1.00TIFF Normal [facility] Discharge Instructionson Discharge Instructions [id number] 236#1.00TIFF Normal [facility] ED Clinical Summaryon 2023 ED Clinical Summary Normal [facility] ED Note-Physicianon 03-15-19 24 ED Note-Physician Normal [facility] Comment on above: Result Comment: Elec tronically Signed By: Earnest Jett DO\.br\Date and Time Signed: 03/15/23 17:31 EST ED Patient Education Noteon 03-15-2023 ED Patient Education Note Normal [facility] ED Patient Summaryon 024 ED Patient Summary Normal [facility] HEMATOLOGYOrdered By: SYSTEM SYSTEM on 03-15-2023 Basophil Absolute 0.1 E9/L Normal 0.0 - 0.2 E9/L Rem isol Heme Basophils/100 WBC (Bld) 0.9 % Normal 0.0 - 2.0 % Remisol Heme Eos Absolute 0.6 E9/L High 0.0 - 0.5 E9/L Remisol Heme Eosinophils/100 WBC (Bld) 9.6 % High 0.0 - 8.0 % Remisol Heme Erythrocyte distribution width (RBC) [Ratio] 13.2 % Normal 10.9 - 14.2 % Remisol Heme Hematocrit (Bld) [Volume fraction] 36.0 % Normal 34.0 - 46.0 % Remisol Heme Hemoglobin (Bld) [Mass/Vol] 12.2 g/dL Normal 12.0 - 16.0 gm/dL Remisol Heme Lymph Absolute 2.0 E9/L Normal 1.0 - 4.0 E9/L Remiso l Heme Lymphocytes/100 WBC (Bld) 32.4 % Normal 14.0 - 50.0 % Remisol Heme MCH (RBC) [Entitic mass] 30.6 pg Normal 27.0 - 34.0 pg Remisol Heme MCHC (RBC) [Mass/Vol] 34.3 g/dL Normal 31.4 - 36.0 gm/dL Remisol Heme MCV (RBC) [Entitic vol] 89.0 fL Normal 80.0 - 100.0 fL Remisol Heme Lewis Absolute 0.3 E9/L Normal 0.2 - 1.0 E9/L Remisol Heme Monocytes/100 WBC (Bld) 5.6 % Normal 4.0 - 14.0 % Remisol Heme Neutro Absolute 3.2 E9/L Normal 2.0 - 7.5 E9/L Remis ol Heme Neutro Auto 51.5 % Normal 36.0 - 75.0 % Remisol He me Platelet 309.0 E9/L Normal 150.0 - 500.0 E9/L Remiso l Heme Comment on above: Result Comment: Demetra meneses with slide review Platelet mean volume (Bld) [Entitic vol] 9.1 fL Normal 6.4 - 10.8 fL Remisol Heme RBC 4.0 E12/L Low 4.3 - 5.9 E12/L Remisol H helen WBC 6.1 E9/L Normal 4.0 - 11.0 E9/L Remisol H helen Hep Func Panelon 03-15-2023 Albumin [Mass/Vol] 3.6 g/dL Normal 3.3-5.0 [facility] Comment on above: Performed By: #### 2 626737, 20925523, 0017496, 31255280, 3078936, 8492165, 6454802, 60717801, 95864024 ####[facility] [address] [place] [address] Albumin/Globulin [Mass ratio] 1.4 {ratio} Normal 1.1-2.2 [facility] Comment on above: Performed By: #### 2 850530, 03308683, 0973119, 59334955, 5497406, 9459049, 7216860, 36173342, 96863738 ####[facility] [address] [place] [address] Alk Phos 64 Int._Unit/L Normal 21-98 [facility] Comment on above: Performed By: #### 2 205857, 16546567, 3982267, 38592794, 4827858, 8636922, 7839474, 54151492, 14188318 ####[facility] [address] [place] [address] ALT 20 Int._Unit/L Normal 6-46 [facility] Comment on above: Performed By: #### 2 769452, 70443259, 9954066, 24117712, 1499156, 4249070, 5898620, 77069471, 07570292 ####[facility] [address] [place] [address] AST 35 Int._Unit/L Normal 5-43 [facility] Comment on above: Performed By: #### 2 920144, 11689782, 4726167, 91446507, 6556893, 5731995, 0028744, 33329753, 51429150 ####[facility] [address] [place] [address] Bili Direct 0.0 mg/dL Normal 0.0-0.4 [facility] Comment on above: Performed By: #### 2 662624, 49631918, 6341016, 38350663, 0145655, 1321897, 6271389, 24336265, 95645664 ####[facility] [address] [place] [address] Bili Indirect 0.2 mg/dL Normal 0.1-0.9 [facility] Comment on above: Performed By: #### 2 366379, 23123200, 7849968, 27002328, 1839791, 6559174, 7509714, 91372570, 32465232 ####[facility] [address] [place] [address] Bili Total 0.2 mg/dL Normal 0.0-1.1 [facility] Comment on above: Performed By: #### 2 973995, 86115551, 8549906, 57090686, 0968846, 5233460, 9500589, 61126528, 34909622 ####[facility] [address] [place] [address] Globulin (S) [Mass/Vol] 2.6 g/dL Normal 1.4-4.0 [facility] Comment on above: Performed By: #### 2 469787, 76462220, 0097402, 13648645, 7652021, 7682899, 6743374, 54001943, 07208632 ####[facility] [address] [place] [address] Protein [Mass/Vol] 6.2 g/dL Normal 6.0-7.8 [facility] Comment on above: Performed By: #### 2 064623, 35372112, 3075915, 43637069, 5540403, 4152014, 3493562, 88417075, 00554746 ####[address] [place] [address] Home Health Recordson 2023 Home Health Records [id number] 1#1.00TIFF Normal [facility] Lactic Acidon 03-15-2023 Lactic Acid Lvl 0.7 mmol/L Normal 0.5-2.2 [facility] Comment on above: Performed By: #### 2 435256, 96000376, 7373561, 05316278, 7943699, 5837162, 9378828, 96640201, 80125095 ####[address] [place] [address] Lipase Levelon 03-15-2023 Lipase Lvl 115 unit/L High 13-58 [facility] Comment on above: Performed By: #### 2 522434, 95245533, 4243496, 85376906, 3706898, 5650029, 4765303, 42248883, 74607931 ####[facility] [address] [place] [address] PT & PTTon 03-15-2023 aPTT Coag (PPP) [Time] 32.3 second(s) Normal 25.1-36.5 [facility] Comment on above: Result Comment: Para [...] the same coagulation reagent and instrumentation as [facility] [place]. Currently there are no coagulation studies available worldwide for children to 14 days, and no normal ranges. Heparin therapeutic range (represented by Anti-Factor Xa activity of 0.2 - 0.4 U/mL) corresponds to PTT of 56.6 - 109.0 sec. Performed By: #### 2 373405, 31181884, 8329863, 18086384, 7591234, 6064855, 1748897, 31274137, 24792975 ####[facility] [address] [place] [address] INR Coag (PPP) [Relative time] 1.1 {INR} Invalid Interpretation Code [facility] Comment on above: Result Comment: INR results are specifically intended to assess patients stabilized on long-term Anticoagulation therapy suggested INR?s ?Less Intensive Anticoagulation? 2.0 ? 3.0Conventional Range 3.0 ? 4.5 Performed By: #### 2 320234, 58638511, 5648043, 03860344, 0464379, 1453844, 0321645, 30042340, 07137028 ####[facility] [address] [place] [address] PT Coag (PPP) [Time] 12.6 second(s) High 9.4-12.5 [facility] Comment on above: Result Comment: 15 [...] the same coagulation reagent and instrumentation as [facility] [place]. Currently there are no coagulation studies available worldwide for children to 14 days, and no normal ranges. Performed By: #### 2 131103, 86151362, 2584582, 69622292, 4712964, 9156733, 9887047, 02388302, 56072711 ####[facility] [address] [place] [address] Pre-Arrival Noteon Pre-Arrival Note Normal [facility] Troponin 0 Hr.on 03-15-2023 Troponin I.cardiac [Mass/Vol] ng/mL Low 10.10-27.10 [facility] Comment on above: Result Comment: The 95% CI (Confidence Interval) PPV (Positive Predictive Value) for myocardial infarction in females is 38 pg/mL, in males 51 pg/mL. The results should be used in conjunction with clinical conditions of myocardial infarction.(Access High Sensitivity Troponin I Instructions For Use, Alan Choteau, September 2017) Performed By: #### 2 364751, 19851592, 0590717, 93317426, 7239414, 0707712, 9164227, 19549463, 59821306 ####[facility] [address] [place] [address] UA With Cult Reflexon 2023 Bilirubin Ql (U) Negative Normal Negative [facility] Comment on above: Performed By: #### 1 1962235 ####[facility] [address] [place] [address] Clarity (U) CLEAR Normal Clear [facility] Comment on above: Performed By: #### 1 7151743 ####[facility] [address] [place] [address] Color (U) ORANGE Abnormal Yellow [facility] Comment on above: Performed By: #### 1 2786830 ####[facility] [address] [place] [address] Crystals LM Ql (Urine sed) Present Normal [facility] Comment on above: Performed By: #### 1 1430079 ####[address] [address] Epithelial cells.squamous LM.HPF (Urine sed) [#/Area] 0-2 Normal 0-2 [facility] Comment on above: Performed By: #### 1 [id number] ####[facility] [address] [place] [address] 39536 Glucose Test strip (U) [Mass/Vol] TRACE Abnormal Negative [facility] Comment on above: Performed By: #### 1 [id number] ####[facility] [address] [place] [address] 33274 Hemoglobin Ql (U) Negative Normal Negative [facility] Comment on above: Performed By: #### 1 [id number] ####[facility] [address] [place] [address] 81350 Ketones (U) [Mass/Vol] Negative Normal Negative [facility] Comment on above: Performed By: #### 1 [id number] ####[facility] [address] [place] [address] 54706 Sauget.plasma/Lith ium.RBC (Bld) [Mass ratio] 0-3 Normal 0-3 [facility] Comment on above: Performed By: #### 1 [id number] ####[facility] [address] [place] [address] Nitrite Ql (U) See Comment Normal Negative [facility] Comment on above: Result Comment: Test Not Performed Due To Interfering Substance Performed By: #### 1 [id number] ####[facility] [address] [place] [address] pH (U) 7.0 [pH] Invalid Interpretation Code 5.0-9.0 [facility] Comment on above: Performed By: #### 1 [id number] ####[address] [address] Protein (U) [Mass/Vol] 1+ Abnormal Negative [facility] Comment on above: Performed By: #### 1 [id number] ####[address] [address] Specific gravity (U) [Rel density] 1.010 Invalid Interpretation Code 1.005-1.030 [facility] Comment on above: Performed By: #### 1 [id number] ####[facility] [address] [place] [address] 18793 Type of Urine collection method Clean Catch Normal [facility] Comment on above: Performed By: #### 1 [id number] ####[facility] [address] [place] [address]35 Urobilinogen Qn (U) See Comment Normal 0.0-1.0 [facility] Comment on above: Result Comment: Test Not Performed Due To Interfering Substance Performed By: #### 1 [id number] ####[facility] [address] [place] [address] WBC Auto Ql (U) Negative Normal Negative [facility] Comment on above: Performed By: #### 1 [id number] ####[facility] [address] [place] [address] WBC LM.HPF (Urine sed) [#/Area] 0-5 Normal 0-5 [facility] Comment on above: Performed By: #### 1 [id number] ####[facility] [address] [place] [address] URINALYSISOrdered By: Alcira Lee on 03-15-2023 Bilirubin Ql (U) Negative (03/15/23 2:43 PM) Normal Negative [facility] UA Auto SS Clarity (U) Clear (03/15/23 2:43 PM) Normal Clear [facility] UA Auto SS Color (U) [place] *ABN* (03/15/23 2:43 PM) Invalid Interpretation Code Yellow [facility] UA Auto SS Crystals LM Ql (Urine sed) Present (03/15/23 2:43 PM) Normal [facility] UA Auto SS Epithelial cells.squamous LM.HPF (Urine sed) [#/Area] 0-2 /HPF Normal 0-2/HPF [facility] UA Auto SS Glucose Test strip (U) [Mass/Vol] Trace *ABN* (03/15/23 2:43 PM) Invalid Interpretation Code Negative [facility] UA Auto SS Hemoglobin Ql (U) Negative (03/15/23 2:43 PM) Normal Negative [facility] UA Auto SS Ketones (U) [Mass/Vol] Negative (03/15/23 2:43 PM) Normal Negative [facility] UA Auto SS [place].plasma/Lith ium.RBC (Bld) [Mass ratio] 0-3 /HPF Normal 0-3/HPF [facility] UA Auto SS Nitrite Ql (U) See Comment 1 (03/15/23 2:43 PM) Normal Negative [facility] UA Auto SS Comment on above: Result Comment: Test Not Performed Due To Interfering Substance pH (U) 7.0 *NA* (03/15/23 2:43 PM) Invalid Interpretation Code 5.0 - 9.0 [facility] UA Auto SS Protein (U) [Mass/Vol] 1+ *ABN* (03/15/23 2:43 PM) Invalid Interpretation Code Negative [facility] UA Auto SS Specific gravity (U) [Rel density] 1.010 *NA* (03/15/23 2:43 PM) Invalid Interpretation Code 1.005 - 1.030 [facility] UA Auto SS UA Spec Desc Clean Catch (03/15/23 2:43 PM) Normal [facility] UA Auto SS Urobilinogen Qn (U) See Comment 2 (03/15/23 2:43 PM) Normal 0.0 - 1.0 [facility]A Auto SS Comment on above: Result Comment: Test Not Performed Due To Interfering Substance WBC Auto Ql (U) Negative (03/15/23 2:43 PM) Normal Negative [facility] [place] UA Auto SS WBC LM.HPF (Urine sed) [#/Area] 0-5 /HPF Normal 0-5/HPF [facility] [place] UA Auto SS XR Chest Single Viewon 03-15 XR Chest Single View Normal [facility] eGFRon 03-15-2023 eGFR 99 mL/min/1.73 m2 Normal >=59 [facility] Comment on above: Order Comment: Order added by Discern Expert. Performed By: #### 2 [id number], [id number], [id number], [id number], [id number], [id number], [id number], [id number], [id number] ####[facility] [address] [place] [address] Basic metabolic 2000 panelon 03-10-2023 Anion gap [Moles/Vol] 11 mmol/L Normal <=19 [facility] Comment on above: Performed By: #### 5 2969-3 #### ALON Johnson ([id number]) [facility] ([facility]) [address] [place] [address] 95895 Calcium [Mass/Vol] 8.0 mg/dL Low 8.5-10.4 [facility] Comment on above: Performed By: #### 5 2969-3 #### ALON Johnson ([id number]) [facility]) [address] [place] [address] 49192 Chloride [Moles/Vol] 108 mmol/L High 97-107 [facility] Comment on above: Performed By: #### 5 2969-3 #### ALON Johnson ([id number]) [facility]) [address] [place] [address] 09902 CO2 [Moles/Vol] 22 mmol/L Low 24-31 [facility] Comment on above: Performed By: #### 5 2969-3 #### ALON Johnson ([id number]) [facility] ([facility]) [address] [place] [address] Creatinine [Mass/Vol] 0.60 mg/dL Normal 0.40-1.60 [facility] Comment on above: Performed By: #### 5 2969-3 #### ALON Johnson ([id number]) [facility] ([facility]) [address] [place] [address] 79564 GFR/1.73 sq M.predicted MDRD (S/P/Bld) [Vol rate/Area] mL/min/{1.73_m2} Normal >60 [facility] Comment on above: Result Comment: Calc ulations of estimated GFR are performed using the 2020 CKD-EPI Study Refit equation without the race variable for the IDMS-Traceable creatinine methods. https://jasn.asnjournals.org/content//ASN.16387686 88 Performed By: #### 5 2969-3 #### ALON Johnson ([id number]) [facility] ([facility]) [address] [place] [address] 62851 Glucose [Mass/Vol] 89 mg/dL Normal 65-99 [facility] Comment on above: Performed By: #### 5 2969-3 #### ALON Johnson ([id number]) [facility]) [address] [place] [address] 19050 Potassium [Moles/Vol] 3.7 mmol/L Normal 3.4-5.1 [facility] Comment on above: Performed By: #### 5 2969-3 #### ALON Johnson ([id number]) [facility]) [address] [place] [address] 48925 Sodium [Moles/Vol] 141 mmol/L Normal 133-145 [facility] Comment on above: Performed By: #### 5 2969-3 #### ALON Johnson ([id number]) [facility]) [address] [place] [address] 52597 Urea nitrogen [Mass/Vol] 4 mg/dL Low 8-25 [facility] Comment on above: Performed By: #### 5 2969-3 #### ALON Johnson ([id number]) [facility]) [address] [place] [address] Anion gap [Moles/Vol] 11 mmol/L NINF - 19 mmol/L [facility] Calcium [Mass/Vol] 8.0 mg/dL Low 8.5 - 10.4 mg/dL [facility] Chloride [Moles/Vol] 108 mmol/L High 97 - 107 mmol/L [facility] CO2 [Moles/Vol] 22 mmol/L Low 24 - 31 mmol/L [facility] Creatinine [Mass/Vol] 0.60 mg/dL 0.40 - 1.60 mg/dL [facility] eGFR - PINF [facility] Comment on above: Calculations of jessica mated GFR are performed using the 2020 CKD-EPI Study Refit equation without the race variable for the IDMS-Traceable creatinine methods. https://jasn.asnjournals.org/content/early//ASN.74166004 88 Glucose [Mass/Vol] 89 mg/dL 65 - 99 mg/dL [facility] Interpretation and review of laboratory results Abnormal [facility] Potassium [Moles/Vol] 3.7 mmol/L 3.4 - 5.1 mmol/L [facility] Sodium [Moles/Vol] 141 mmol/L 133 - 145 mmol/L [facility] Urea nitrogen [Mass/Vol] 4 mg/dL Low 8 - 25 mg/dL [facility] CBC panel Auto (Bld)on 03-10 Erythrocyte distribution width (RBC) [Ratio] 12.9 % Normal 11.5-14.5 [facility] Comment on above: Performed By: #### 5 2969-3 #### ALON Johnson ([id number]) [facility]) [address] [place] [address] Hematocrit (Bld) [Volume fraction] 31.3 % Low 36.0-46.0 [facility] Comment on above: Performed By: #### 5 2969-3 #### ALON Johnson ([id number]) [facility]) [address] [place] [address] 41588 Hemoglobin (Bld) [Mass/Vol] 10.6 g/dL Low 12.0-16.0 [facility] Comment on above: Performed By: #### 5 2969-3 #### ALON Johnson ([id number]) [facility]) [address] [place] [address] 12634 MCH (RBC) [Entitic mass] 30.7 pg Normal 26.0-34.0 [facility] Comment on above: Performed By: #### 5 2969-3 #### ALON Johnson ([id number]) [facility]) [address] [place] [address] 84002 MCHC (RBC) [Mass/Vol] 33.9 g/dL Normal 32.0-36.0 [facility] Comment on above: Performed By: #### 5 2969-3 #### ALON Johnson ([id number]) [facility]) [address] [place] [address] 07338 MCV (RBC) [Entitic vol] 91 fL Normal 80-100 [facility] Comment on above: Performed By: #### 5 2969-3 #### ALON Johnson ([id number]) [facility]) [address] [place] [address] 16097 Nucleated RBC/100 WBC (Bld) [Ratio] 0.0 /100 WBCs Normal 0.0-0.0 [facility] Comment on above: Performed By: #### 5 2969-3 #### ALON Johnson ([id number]) [facility]) [address] [place] [address] 21757 Platelets (Bld) [#/Vol] 215 x10*3/uL Normal 150-450 [facility] Comment on above: Performed By: #### 5 2969-3 #### ALON Johnson ([id number]) [facility]) [address] [place] [address] RBC (Bld) [#/Vol] 3.45 x10*6/uL Low 4.00-5.20 [facility] Comment on above: Performed By: #### 5 2969-3 #### ALON Johnson ([id number]) [facility]) [address] [place] [address] WBC (Bld) [#/Vol] 4.0 x10*3/uL Low 4.4-11.3 [facility] Comment on above: Performed By: #### 5 2969-3 #### ALON Johnson ([id number]) [facility]) [address] [place] [address] Erythrocyte distribution width (RBC) [Ratio] 12.9 % 11.5 - 14.5 % [facility] Hematocrit (Bld) [Volume fraction] 31.3 % Low 36.0 - 46.0 % [facility] Hemoglobin (Bld) [Mass/Vol] 10.6 g/dL Low 12.0 - 16.0 g/dL [facility] Interpretation and review of laboratory results Abnormal [facility] MCH (RBC) [Entitic mass] 30.7 pg 26.0 - 34.0 pg [facility] MCHC (RBC) [Mass/Vol] 33.9 g/dL 32.0 - 36.0 g/dL [facility] MCV (RBC) [Entitic vol] 91 fL 80 - 100 fL [facility] Nucleated RBC/100 WBC (Bld) [Ratio] 0.0 % [facility] Platelets (Bld) [#/Vol] 215 10*3/uL [facility] RBC (Bld) [#/Vol] 3.45 10*6/uL Low [facility] WBC (Bld) [#/Vol] 4.0 10*3/uL Low [facility] Gastrointestinal pathogens i dentified HANK+probe Nom (Stl)Ordered By: Edwige Bronson on 03-10-2023 Campylobacter Group Not detected Not Detected [facility] E. coli stx1 gene HANK+probe Ql (Stl) Not detected Not Detected [facility] E. coli stx2 gene HANK+probe Ql (Stl) Not detected Not Detected [facility] Interpretation and review of laboratory results Normal [facility] Norovirus genogroup I and II RNA HANK+probe Nom (Stl) Not detected Not Detected [facility] Rotavirus RNA HANK+probe Nom (Stl) Not detected Not Detected [facility] Salmonella species Not detected Not Detected [facility] Shigella sp DNA HANK+probe Ql (Unsp spec) Not detected Not Detected [facility] [employer] Not detected Not Detected [facility] Y. enterocolitica DNA HANK+probe Ql (Stl) Not detected Not Detected [facility] Glucose Test strip manual (B ld) [Mass/Vol]on 03-10-2023 Glucose [Mass/Vol] 104 mg/dL High 74-99 [facility] Comment on above: Performed By: #### 5 2969-3 #### ALON Johnson ([id number]) [facility]) [address] [place] [address] 01580 Glucose [Mass/Vol] 104 mg/dL High 74 - 99 mg/dL [facility] Interpretation and review of laboratory results Abnormal [facility] Glucose [Mass/Vol] 82 mg/dL 74 - 99 mg/dL [facility] Glucose [Mass/Vol] 109 mg/dL High 74 - 99 mg/dL [facility] Interpretation and review of laboratory results Normal [facility] Interpretation and review of laboratory results Abnormal [facility] Glucose [Mass/Vol] 109 mg/dL High 74-99 [facility] Comment on above: Performed By: #### 5 2969-3 #### ALON Johnson ([id number]) [facility]) [address] [place] [address] 29437 Glucose [Mass/Vol] 84 mg/dL Normal 74-99 [facility] Comment on above: Performed By: #### 5 2969-3 #### ALON Johnson ([id number]) [facility]) [address] [place] [address] Glucose [Mass/Vol] 84 mg/dL 74 - 99 mg/dL [facility] Interpretation and review of laboratory results Normal [facility] Glucose [Mass/Vol] 79 mg/dL Normal 74-99 [facility] Comment on above: Performed By: #### 5 2969-3 #### ALON Johnson ([id number]) [facility]) [address] [place] [address] Glucose [Mass/Vol] 79 mg/dL 74 - 99 mg/dL [facility] Interpretation and review of laboratory results Normal [facility] Basic metabolic 2000 panelon 03-09-2023 Anion gap [Moles/Vol] 10 mmol/L Normal <=19 [facility] Comment on above: Performed By: #### 2 4321-2 ####MELISA Galvan ([id number])[facility] ()[address] [place] [facility] [place] [address] Calcium [Mass/Vol] 8.3 mg/dL Low 8.5-10.4 [facility] Comment on above: Performed By: #### 2 4321-2 ####MELISA Galvan (96991)[facility] ()[address] [place] [address] Chloride [Moles/Vol] 105 mmol/L Normal 97-107 [facility] Comment on above: Performed By: #### 2 4321-2 ####MELISA Galvan (08388)[facility] ()[address] [place] [address] CO2 [Moles/Vol] 20 mmol/L Low 24-31 [facility] Comment on above: Performed By: #### 2 4321-2 ####MELISA Galvan (10295)[facility] ()[address] [place] [address] Creatinine [Mass/Vol] 0.60 mg/dL Normal 0.40-1.60 [facility] Comment on above: Performed By: #### 2 4321-2 ####MELISA Galvan (00138)[facility] ()[address] [place] [address] GFR/1.73 sq M.predicted MDRD (S/P/Bld) [Vol rate/Area] mL/min/{1.73_m2} Normal >60 [facility] Comment on above: Result Comment: Calc ulations of estimated GFR are performed using the 2020 CKD-EPI Study Refit equation without the race variable for the IDMS-Traceable creatinine methods. https://jasn.asnjournals.org/content/early/ASN.91988101 88 Performed By: #### 2 4321-2 ####MELISA Galvan ([id number])[facility] ()[address] [place] [address] Glucose [Mass/Vol] 98 mg/dL Normal 65-99 [facility] Comment on above: Performed By: #### 2 4321-2 ####MELISA Galvan ([id number])[facility] ()[address] [place] [address] Potassium [Moles/Vol] 3.7 mmol/L Normal 3.4-5.1 [facility] Comment on above: Performed By: #### 2 4321-2 ####MELISA Galvan (47299)[facility] ()[address] [place] [address] Sodium [Moles/Vol] 135 mmol/L Normal 133-145 [facility] Comment on above: Performed By: #### 2 432-2 ####MELISA Galvan (38940)[facility] ()[address] [place] [address] Urea nitrogen [Mass/Vol] mg/dL Low 8-25 [facility] Comment on above: Result Comment: Resu lt rechecked Performed By: #### 2 4321-2 ####MELISA Galvan (13930)[facility] (MW)[address] [place] [address] Anion gap [Moles/Vol] 10 mmol/L NINF - 19 mmol/L [facility] Calcium [Mass/Vol] 8.3 mg/dL Low 8.5 - 10.4 mg/dL [facility] Chloride [Moles/Vol] 105 mmol/L 97 - 107 mmol/L [facility] CO2 [Moles/Vol] 20 mmol/L Low 24 - 31 mmol/L [facility] Creatinine [Mass/Vol] 0.60 mg/dL 0.40 - 1.60 mg/dL [facility] eGFR - PINF [facility] Comment on above: Calculations of jessica mated GFR are performed using the 2020 CKD-EPI Study Refit equation without the race variable for the IDMS-Traceable creatinine methods. https://jasn.asnjournals.org/content/early/ASN.23618602 88 Glucose [Mass/Vol] 98 mg/dL 65 - 99 mg/dL [facility] Interpretation and review of laboratory results Abnormal [facility] Potassium [Moles/Vol] 3.7 mmol/L 3.4 - 5.1 mmol/L [facility] Sodium [Moles/Vol] 135 mmol/L 133 - 145 mmol/L [facility] Urea nitrogen [Mass/Vol] mg/dL Low 8 - 25 mg/dL [facility] Comment on above: Result rechecked [facility] C. difficile toxin A+B tcdA+ tcdB genes HANK+probe Ql (Stl)on 03-09-2023 Interpretation and review of laboratory results Normal [facility] This test is an FDA-cleared real-time PCR assay for detection of toxigenic C. difficile DNA from unprocessed liquid or unformed stool specimens that have not undergone nucleic acid extraction in symptomatic patients with potential C. difficile infection (CDI). A positive result may indicate colonization, and clinical assessment is required for the diagnosis of CDI. This test cannot be performed on formed stools or used as a test of cure, and should not be performed more than once per 7 days. [facility] C. difficile, PCRon 03-09-19 C. difficile toxin A+B tcdA+tcdB genes HANK+probe Ql (Stl) Not detected Not Detected [facility] CBC panel Auto (Bld)on 03-09 Erythrocyte distribution width (RBC) [Ratio] 12.7 % Normal 11.5-14.5 [facility] Comment on above: Performed By: #### 5 8410-2 ####MELISA Galvan ([id number])[facility] ()[address] [place] [address] Hematocrit (Bld) [Volume fraction] 34.6 % Low 36.0-46.0 [facility] Comment on above: Performed By: #### 5 8410-2 ####MELISA Galvan (40132)[facility] ()[address] [place] [address] Hemoglobin (Bld) [Mass/Vol] 11.7 g/dL Low 12.0-16.0 [facility] Comment on above: Performed By: #### 5 8410-2 ####MELISA Galvan (43941)[facility] ()[address] [place] [address] MCH (RBC) [Entitic mass] 30.8 pg Normal 26.0-34.0 [facility] Comment on above: Performed By: #### 5 8410-2 ####MELISA Galvan (85940)[facility] ()[address] [place] [address] MCHC (RBC) [Mass/Vol] 33.8 g/dL Normal 32.0-36.0 [facility] Comment on above: Performed By: #### 5 8410-2 ####MELISA Galvan (82042)[facility] ()[address] [place] [address] MCV (RBC) [Entitic vol] 91 fL Normal 80-100 [facility] Comment on above: Performed By: #### 5 8410-2 ####MELISA Galvan (87088)[facility] ()[address] [place] [address] Nucleated RBC/100 WBC (Bld) [Ratio] 0.0 /100 WBCs Normal 0.0-0.0 [facility] Comment on above: Performed By: #### 5 8410-2 ####MELISA Galvan (36798)[facility] ()[address] [place] [address] Platelets (Bld) [#/Vol] 226 x10*3/uL Normal 150-450 [facility] Comment on above: Performed By: #### 5 8410-2 ####MELISA Galvan (25481)[facility] ()[address] [place] [address] RBC (Bld) [#/Vol] 3.80 x10*6/uL Low 4.00-5.20 [facility] Comment on above: Performed By: #### 5 8410-2 ####MELISA Galvan (68067)[facility] ()[address] [place] [address] WBC (Bld) [#/Vol] 6.8 x10*3/uL Normal 4.4-11.3 [facility] Comment on above: Performed By: #### 5 8410-2 ####MELISA Galvan (75666)[facility] ()[address] [place] [address] Erythrocyte distribution width (RBC) [Ratio] 12.7 % 11.5 - 14.5 % [facility] Hematocrit (Bld) [Volume fraction] 34.6 % Low 36.0 - 46.0 % [facility] Hemoglobin (Bld) [Mass/Vol] 11.7 g/dL Low 12.0 - 16.0 g/dL [facility] Interpretation and review of laboratory results Abnormal [facility] MCH (RBC) [Entitic mass] 30.8 pg 26.0 - 34.0 pg [facility] MCHC (RBC) [Mass/Vol] 33.8 g/dL 32.0 - 36.0 g/dL [facility] MCV (RBC) [Entitic vol] 91 fL 80 - 100 fL [facility] Nucleated RBC/100 WBC (Bld) [Ratio] 0.0 % [facility] Platelets (Bld) [#/Vol] 226 10*3/uL [facility] RBC (Bld) [#/Vol] 3.80 10*6/uL [facility] WBC (Bld) [#/Vol] 6.8 10*3/uL [facility] Clostridioides difficile tox in A+B tcdA+tcdB geneson 03-09-2023 C. difficile toxin A+B tcdA+tcdB genes HANK+probe Ql (Stl) Clostridioides difficile toxin A+B tcdA+tcdB genes Not Detected Normal Not Detected [facility] Comment on above: Order Comment: This test is an FDA-cleared real-time PCR assay for detection of toxigenic C. difficile DNA from unprocessed liquid or unformed stool specimens that have not undergone nucleic acid extraction in symptomatic patients with potential C. difficile infection (CDI). A positive result may indicate colonization, and clinical assessment is required for the diagnosis of CDI. This test cannot be performed on formed stools or used as a test of cure, and should not be performed more than once per 7 days. Performed By: #### 8 0685-1 ####MELISA Galvan ([id number])[facility] (MW)[address] [place] [address] Gastrointestinal pathogens i dentifiedon 03-09-2023 Gastrointestinal pathogens identified HANK+probe Nom (Stl) Campylobacter coli+jejuni+upsalie nsis DNA Not Detected Salmonella sp DNA Not Detected Shigella sp DNA Not Detected Vibrio cholerae DNA Not Detected Yersinia enterocolitica DNA Not Detected Escherichia coli Stx1 toxin stx1 gene Not Detected Escherichia coli Stx2 toxin stx2 gene Not Detected Norovirus genogroup I AND II RNA Not Detected Rotavirus RNA Not Detected Normal Not Detected [facility] Comment on above: Performed By: #### 5 2969-3 #### ALON Johnson ([id number]) [facility]) [address] [place] [address] Glucose Test strip manual (B ld) [Mass/Vol]on 03-09-2023 Glucose [Mass/Vol] 82 mg/dL Normal 74-99 [facility] Comment on above: Performed By: #### 5 2969-3 #### ALON Johnson ([id number]) [facility] ([facility]) [address] [place] [address] Glucose [Mass/Vol] 91 mg/dL Normal 74-99 [facility] Comment on above: Performed By: #### 5 2969-3 #### ALON Johnson ([id number]) [facility] ([facility]) [address] [place] [address] Glucose [Mass/Vol] 91 mg/dL 74 - 99 mg/dL [facility] Interpretation and review of laboratory results [facility] Glucose [Mass/Vol] 83 mg/dL Normal 74-99 [facility] Comment on above: Performed By: #### 2 341-6 ####MELISA Galvan (36295)[facility] ()[address] [place] [address] Glucose [Mass/Vol] 83 mg/dL 74 - 99 mg/dL [facility] Interpretation and review of laboratory results Normal [facility] Glucose [Mass/Vol] 82 mg/dL Normal 74-99 [facility] Comment on above: Performed By: #### 2 341-6 ####MELISA Galvan (08154)[facility] ()[address] [place] [address] Glucose [Mass/Vol] 82 mg/dL 74 - 99 mg/dL [facility] Interpretation and review of laboratory results Normal [facility] Glucose [Mass/Vol] 120 mg/dL High 74-99 [facility] Comment on above: Performed By: #### 2 341-6 ####MELISA Galvan (19188)[facility] ()[address] [place] [address] Glucose [Mass/Vol] 62 mg/dL Low 74-99 [facility] Comment on above: Performed By: #### 2 341-6 ####MELISA Galvan (52806)[facility] ()[address] [place] [address] Glucose [Mass/Vol] 120 mg/dL High 74 - 99 mg/dL [facility] Interpretation and review of laboratory results Abnormal [facility] Glucose [Mass/Vol] 62 mg/dL Low 74 - 99 mg/dL [facility] Interpretation and review of laboratory results Abnormal [facility] Glucose [Mass/Vol] 89 mg/dL Normal 74-99 [facility] Comment on above: Performed By: #### 2 341-6 ####MELISA Galvan (26731)[facility] ()[address] [place] [address] Basic metabolic 2000 panelon 03-08-2023 Anion gap [Moles/Vol] 8 mmol/L Normal <=19 [facility] Comment on above: Performed By: #### 2 4323-8 #### MELISA Galvan (94469) [facility] () [address] [place] [address] Calcium [Mass/Vol] 8.2 mg/dL Low 8.5-10.4 [facility] Comment on above: Performed By: #### 2 4323-8 #### MELISA Galvan (98735) [facility] () [address] [place] [address] Chloride [Moles/Vol] 106 mmol/L Normal 97-107 [facility] Comment on above: Performed By: #### 2 4323-8 #### MELISA Galvan (97411) [facility] () [address] [place] [address] CO2 [Moles/Vol] 22 mmol/L Low 24-31 [facility] Comment on above: Performed By: #### 2 4323-8 #### MELISA Galvan (28583) [facility] () [address] [place] [address] Creatinine [Mass/Vol] 0.70 mg/dL Normal 0.40-1.60 [facility] Comment on above: Performed By: #### 2 4323-8 #### MELISA Galvan (54717) [facility] () [address] [place] [address] GFR/1.73 sq M.predicted MDRD (S/P/Bld) [Vol rate/Area] mL/min/{1.73_m2} Normal >60 [facility] Comment on above: Result Comment: Calc ulations of estimated GFR are performed using the 2020 CKD-EPI Study Refit equation without the race variable for the IDMS-Traceable creatinine methods. https://jasn.asnjournals.org/content/early/ASN.58427540 88 Performed By: #### 2 4323-8 #### MELISA Galvan (09511) [facility] () [address] [place] [address] Glucose [Mass/Vol] 91 mg/dL Normal 65-99 [facility] Comment on above: Performed By: #### 2 4323-8 #### MELISA Galvan (13444) [facility] () [address] [place] [address] Potassium [Moles/Vol] 3.7 mmol/L Normal 3.4-5.1 [facility] Comment on above: Performed By: #### 2 4323-8 #### MELISA Galvan (66644) [facility] () [address] [place] [address] Sodium [Moles/Vol] 136 mmol/L Normal 133-145 [facility] Comment on above: Performed By: #### 2 4323-8 #### MELISA Galvan (56694) [facility] () [address] [place] [address] Urea nitrogen [Mass/Vol] 3 mg/dL Low 8-25 [facility] Comment on above: Performed By: #### 2 4323-8 #### MELISA Galvan (42162) [facility] () [address] [place] [address] Anion gap [Moles/Vol] 8 mmol/L NINF - 19 mmol/L [facility] Calcium [Mass/Vol] 8.2 mg/dL Low 8.5 - 10.4 mg/dL [facility] Chloride [Moles/Vol] 106 mmol/L 97 - 107 mmol/L [facility] CO2 [Moles/Vol] 22 mmol/L Low 24 - 31 mmol/L [facility] Creatinine [Mass/Vol] 0.70 mg/dL 0.40 - 1.60 mg/dL [facility] eGFR - PINF [facility] Comment on above: Calculations of jessica mated GFR are performed using the 2020 CKD-EPI Study Refit equation without the race variable for the IDMS-Traceable creatinine methods. https://jasn.asnjournals.org/content//ASN.05619190 88 Glucose [Mass/Vol] 91 mg/dL 65 - 99 mg/dL [facility] Interpretation and review of laboratory results Abnormal [facility] Potassium [Moles/Vol] 3.7 mmol/L 3.4 - 5.1 mmol/L [facility] Sodium [Moles/Vol] 136 mmol/L 133 - 145 mmol/L [facility] Urea nitrogen [Mass/Vol] 3 mg/dL Low 8 - 25 mg/dL [facility] CBC panel Auto (Bld)on 03-08 Erythrocyte distribution width (RBC) [Ratio] 12.8 % Normal 11.5-14.5 [facility] Comment on above: Performed By: #### 2 4323-8 #### MELISA Galvan (48613) [facility] () [address] [place] [address] Hematocrit (Bld) [Volume fraction] 32.2 % Low 36.0-46.0 [facility] Comment on above: Performed By: #### 2 432-8 #### MELISA Galvan (60104) [facility] () [address] [place] [address] Hemoglobin (Bld) [Mass/Vol] 10.9 g/dL Low 12.0-16.0 [facility] Comment on above: Performed By: #### 2 432-8 #### MELISA Galvan (20001) [facility] () [address] [place] [address] MCH (RBC) [Entitic mass] 31.3 pg Normal 26.0-34.0 [facility] Comment on above: Performed By: #### 2 432-8 #### MELISA Galvan (47464) [facility] () [address] [place] [address] MCHC (RBC) [Mass/Vol] 33.9 g/dL Normal 32.0-36.0 [facility] Comment on above: Performed By: #### 2 4323-8 #### MELISA Galvan (30129) [facility] () [address] [place] [address] MCV (RBC) [Entitic vol] 93 fL Normal 80-100 [facility] Comment on above: Performed By: #### 2 432-8 #### MELISA Galvan (24388) [facility] () [address] [place] [address] Nucleated RBC/100 WBC (Bld) [Ratio] 0.0 /100 WBCs Normal 0.0-0.0 [facility] Comment on above: Performed By: #### 2 432-8 #### MELISA Galvan (02581) [facility] () [address] [place] [address] Platelets (Bld) [#/Vol] 171 x10*3/uL Normal 150-450 [facility] Comment on above: Performed By: #### 2 4323-8 #### MELISA Galvan (90233) [facility] () [address] [place] [address] RBC (Bld) [#/Vol] 3.48 x10*6/uL Low 4.00-5.20 [facility] Comment on above: Performed By: #### 2 4323-8 #### MELISA Galvan (08273) [facility] () [address] [place] [address] WBC (Bld) [#/Vol] 4.2 x10*3/uL Low 4.4-11.3 [facility] Comment on above: Performed By: #### 2 4323-8 #### MELISA Galvan (34189) [facility] () [address] [place] [address] Erythrocyte distribution width (RBC) [Ratio] 12.8 % 11.5 - 14.5 % [facility] Hematocrit (Bld) [Volume fraction] 32.2 % Low 36.0 - 46.0 % [facility] Hemoglobin (Bld) [Mass/Vol] 10.9 g/dL Low 12.0 - 16.0 g/dL [facility] Interpretation and review of laboratory results Abnormal [facility] MCH (RBC) [Entitic mass] 31.3 pg 26.0 - 34.0 pg [facility] MCHC (RBC) [Mass/Vol] 33.9 g/dL 32.0 - 36.0 g/dL [facility] MCV (RBC) [Entitic vol] 93 fL 80 - 100 fL [facility] Nucleated RBC/100 WBC (Bld) [Ratio] 0.0 % [facility] Platelets (Bld) [#/Vol] 171 10*3/uL [facility] RBC (Bld) [#/Vol] 3.48 10*6/uL [facility] WBC (Bld) [#/Vol] 4.2 10*3/uL [facility] Glucose Test strip manual (B ld) [Mass/Vol]on 03-08-2023 Glucose [Mass/Vol] 89 mg/dL 74 - 99 mg/dL [facility] Interpretation and review of laboratory results Normal [facility] Glucose [Mass/Vol] 85 mg/dL 74 - 99 mg/dL [facility] Interpretation and review of laboratory results Normal [facility] Glucose [Mass/Vol] 85 mg/dL Normal 74-99 [facility] Comment on above: Performed By: #### 2 341-6 ####MELISA Galvan (46510)[facility] ()[address] [place] [address] Glucose [Mass/Vol] 151 mg/dL High 74-99 [facility] Comment on above: Performed By: #### 2 341-6 ####MELISA Galvan (73098)[facility] ()[address] [place] [address] Glucose [Mass/Vol] 151 mg/dL High 74 - 99 mg/dL [facility] Interpretation and review of laboratory results Abnormal [facility] Glucose [Mass/Vol] 89 mg/dL Normal 74-99 [facility] Comment on above: Performed By: #### 2 4323-8 #### MELISA Galvan (11710) [facility] () [address] [place] [address] Glucose [Mass/Vol] 89 mg/dL 74 - 99 mg/dL [facility] Interpretation and review of laboratory results Normal [facility] Glucose [Mass/Vol] 97 mg/dL Normal 74-99 [facility] Comment on above: Performed By: #### 2 4323-8 #### MELISA Galvan (91932) [facility] () [address] [place] [address] Glucose [Mass/Vol] 97 mg/dL 74 - 99 mg/dL [facility] Interpretation and review of laboratory results Normal [facility] Glucose [Mass/Vol] 102 mg/dL High 74-99 [facility] Comment on above: Performed By: #### 2 4323-8 #### MELISA Galvan (15921) [facility] () [address] [facility] [place] [address] Glucose [Mass/Vol] 102 mg/dL High 74 - 99 mg/dL [facility] Interpretation and review of laboratory results Abnormal [facility] Surgical pathology studyOrde red By: Melisa Rodriguez on 03-08-2023 Laboratory comment John (Report) w5qhnZGtKAMfl1boDUM mbGFuZzEwMzNcZnRuYm pcdWMxIHtccnRmMVxzc 3SnA0ZmVwEjLKonksBp XGRlZmxhbmcxMDMzXGZ 0bmJqXHVjMVxkZWZmMH rjXf3yiZIofPdgZoUuD PLsn9lkkaSSLEadGYZL CHb1a5rkOIRuAvZ3cGG sPLteL8ucqiKceWBiO3 Urk6KrDHb1eV58YZHyw R2poJToHMwssiTsMeZ9 ANuxLQQkPhS5BDNpoOK cPXWxQ8bfDYCmINkgUM HtCMgbvXDoQZV3dJqei 0W5jJGziZXbkIyvFwHj PhXuMgULt3LuRDm5zSv cJ2XhSXHeJsU0xCMiSF CvTBrbLSTxGQWajgW3h I74JAofkjM3eFGua1Hm l55tm432eE3vpSImKHE 3MTIyNDBccGFwZXJoMT F3JVQpmMFfQ2gbQnBne TGnK0KePbOjtVKoM4Zw QtRzmSEaW8GgPnMkvUR uKMYlfJK5NNhwl666GQ K3CqJiCS7yO1Uhg3O6q I5hsKVrUBAjhOFsAaSw JDXodv7vrRAcWWoiw4Q qURQ3paW0vAMwvNDjSU JkTR98Gfgts8EnKlgsO IJ0JPToohQso2Rat9ps HbAgviWmT7dzY1BuGCF oZWFkXHBnYnJkcmZvb3 Gzt5MjwDEqaQn9u0dxH AExEMSprPmnk8bfGJO7 TIReF6R9nJUrb0bbHRp wDNAkkYP6arQ6CMteXP EfmrY1xrY6NKarWWMib TW9uaN6SDxoBWUkZhC2 geX2BYblZOAhAHE6DbA oIPNkq8YlywhoKwQzu2 TwyJBlSQjbQ99oe936K EZykyDkN0rdxZWmgvhl cQMlyyfvSMyvgwN8STU sXHBsYWluXGYxXGZzMj BcbGFuZzEwMzNcaGlja FxmMVxkYmNoXGYxXGxv O3gaWqImZbYdAIZGzVN 3pOReg6cgmmO4oQUmFE 8fGIUloXIzqxLlk7H7K SF7cQKaxK9eqUAtWIPc nZYmqaThqy17jGCvoIS 4FIMqPKYxwSTvaV4cYO UkRNUBaH9msVSUzbKmj eZrOXUjtBtotl7PjFGw nl6soCVuW2OmxKftqVE zIHRoYXQgdGhleSBoYX AjVQJuqazqh5CgPRQyd YPcG8QsUE3wIGRcxo27 [facility] Work Phone: Pathology report Cancer Narrative Surgical Pathology Case: [id number] Authorizing Provider: Sherry Magaña MD Collected: 03/05/2023 1125 Ordering Location: [facility] Received: 03/05/2023 1314 Center OR Pathologist: Melisa Rodriguez MD Specimen: LIGAMENT, Median Arcuate Ligament [facility] Work Phone: Pathology report final diagnosis Narrative o4mxrUGiVYTmpSLoAOY wNFxhbnNpXHNwbHRwZ3 PqicdtLSlyBZ2xYW1eo GxhdHRveWVuXGRlZmYw y8odj814xLFku4ayJTK KSJgmJKRKUAr3p8qvPX ZFcvoikJm6oTypE28jy 6H3AzyrY7fyUYKeWVdc ZDSoYHvncAIvABt4HCI hcGVydzEyMjQwXHBhcG RziLU8TGEwUI3wktmbG AujWXmfOGJxowM7RDWp yJPvN5VrEYPhDU7prgn wUGV7ASedAGCaBAY2Id UaFPFgv2Qylhf3PsVvx Oi0a2byGFRgMXEsqEvi c6ruCWH2OFPcmQSiX7o ykI3jINWkAW0bzczmr1 fqSJkpUEzgDGTxgJE3j uZ8BZVzxRAoP0YybD4j NDQwXHBhcmRccGxhaW5 cZjFcZnMyMlxjZjFccG KtUU2BMGbPBcXYLzABB ALDULmBO0TCQA4TFNOG YEMND5bCBgwceQJmBVE yYsLPyCMwi4BhjEGvr2 MfAW7jjDVygNPvanQrr 30lnLcpJlIvW68ssoVd r5XwuEuomJmogCHgtUl id6LoYCXzl0Z0OTknE6 xpbmljYWxseSBtZWRpY G4rKZZpnFH8XSOtoGou bTNstSFvjG8yqd7xAI8 ccGFyfQ== [facility] Work Phone: Pathology report gross observation Narrative w6duvHWbFRMyxRWAESX 5CLTiLS4irRxgrFx3zA nqFQReliG1dCLsBJawv 4zwDJN7m9nhxbDGXcnd NEIgVC4cADxcKKSyGB5 nZmUwXGRlZmYxXHBhcG VydzEyMjQwXHBhcGVya JD0NWOxWQ8nzmoyOZga SKqzVHCdmeV8KJJneKT jW9JhLEFjFN0papxeNO T3VLMXKiitDy9piTVzz CANCntcZjFcZmNoYXJz BPCwAFFznIjhV2Pud9M fLUn6aN9Ec4tjKvfmC8 yhyfYxrMAqXh9dbUMIi zxeqYa0tW3GUFZxA9Iy RG7Jl2kvBGZweVZyCQV 6SJeyt3crLNboRQD5PK ZaOIMdCWBjOM8JRcEaQ LtaDMVuINQtFBk5PYl4 GLAZPHOgNkR5CQF9HIf 6UGi1KVxgecbyPLq1ZR WbGJakzQEoRR0xtPnrE szdxGkpi9QmpSHiYBKz IFxcaWQgNTEwMDIgXFx nSdNPHmEiCqR6NiAkOB CgStL4ZQz6QVIQGgYhE zLvYJEqFgo2PLTgGOz5 TZo1NGzCVuJ1VxJ7IVq 0JgxfWVP1QxVlFLonuF BcXHQgMiBcXHNzIDMgX FpifQPgMV6czUvfLNCu EK0TWDKfOVjmZUGsjLC PQIU0SI2rJHYAMcfdnU QcUEEpQGfazTEmL3hvA jJcZnMyMCBBOiBSZWNl aXZlZCBmcmVzaCBsYWJ lbGVkIHdpdGggdGhlIH RwjZquwsGzcwJrWQ9wZ HHjFGKnt8QikJVfpKSf hM5jRCPjJF7gYMStCZQ yBZ7zLJFuvPA1ECEufA dhbWVudCIsIGFyZSAyI GlycmVndWxhciBhbmQg dQZgESJfHCXwx1L5MLL oj3Z6VSUiqfGbcRZgrQ GjuECyh5HupU7qABLyV ZUliDS2KLGuUcU6WSUu RyCvlLNoqqZsI7zjPNr jkSNoEYOFvEIro2TgL3 erUF6kjKOyc9FqhKscv mVkIGFuZCBlbnRpcmVs wVYcnJDhjEU0DXYvsM5 vFTZdSRXhCRC0WG4crW BgIB9GNKAYCCRqwmLBY pwkQBKnXRlSxf6wcfHx vKGzAJM7aC3aYFCqqxZ ebt6rHWIzpNlzgVVaML 2ZPI5codJeg7p2dPJHd 3NwaXRhbHMgTGFrZSBX XQG7CW6uDWgwLErxY7M ehPNtQPUiwzGKHhH0XK GyHIG1J1ppZUMRhpMbb BUgjMHuNW4HH1qafD83 A5rxrTimU7rdjsZ2PEE 7MOuqAAQxNNfma6JmXJ xlcGljWHNhMzAgDQpQa E8yWKuiWRX6UZjaSJSm LTYwMjUgIEZheDogKDQ 8SRhjHaJuGDX0ISBEWq qmgRjxUiTtsZNsTlK3H CFxyYZrQQM3DL0lsHnz ONFoX9TnU2BsknR1JTN jxwOCGtreNSAkOI2HJM EqDKnsIS6ZrG== [facility] Work Phone: Pathology report relevant history Narrative e9toxKYvIOYou6prTVJ mbGFuZzEwMzNcZnRuYm x2XWCrbiG1Tjr1SQDsJ AbhcU1rSKCwOMuaM1zf uwVjlHReH2Kpm7LnXEw 3yD9mmNfwrO1iSdChYh UvCDKCysStx0PfDIjeU 81qg2ecIpudYIBcMRJl uLJgBYZtK0EszVHkaYv vMG8xamTeb5tbRYGzxH CcLIRQBs6OJ1UfMJjCZ cwuBN8cuSGkIR2= [facility] Work Phone: [facility] Work Phone: Basic metabolic 2000 panelon 03-07-2023 Anion gap [Moles/Vol] 7 mmol/L Normal <=19 [facility] Comment on above: Performed By: #### 5 7021-8 #### MELISA Galvan ([id number]) [facility] () [address] [place] [address] Calcium [Mass/Vol] 8.0 mg/dL Low 8.5-10.4 [facility] Comment on above: Performed By: #### 5 7021-8 #### MELISA Galvan (39846) [facility] () [address] [place] [address] Chloride [Moles/Vol] 111 mmol/L High 97-107 [facility] Comment on above: Performed By: #### 5 7021-8 #### MELISA Galvan (38032) [facility] () [address] [place] [address] CO2 [Moles/Vol] 21 mmol/L Low 24-31 [facility] Comment on above: Performed By: #### 5 7021-8 #### MELISA Galvan (42298) [facility] () [address] [place] [address] Creatinine [Mass/Vol] 0.70 mg/dL Normal 0.40-1.60 [facility] Comment on above: Performed By: #### 5 7021-8 #### MELISA Galvan (62743) [facility] () [address] [place] [address] GFR/1.73 sq M.predicted MDRD (S/P/Bld) [Vol rate/Area] mL/min/{1.73_m2} Normal >60 [facility] Comment on above: Result Comment: Calc ulations of estimated GFR are performed using the 2020 CKD-EPI Study Refit equation without the race variable for the IDMS-Traceable creatinine methods. https://jasn.asnjournals.org/content//ASN.16824566 88 Performed By: #### 5 7021-8 #### MELISA Galvan ([id number]) [facility] () [address] [place] [address] Glucose [Mass/Vol] 100 mg/dL High 65-99 [facility] Comment on above: Performed By: #### 5 7021-8 #### MELISA Galvan (41483) [facility] () [address] [place] [address] Potassium [Moles/Vol] 3.9 mmol/L Normal 3.4-5.1 [facility] Comment on above: Performed By: #### 5 7021-8 #### MELISA Galvan (96775) [facility] () [address] [place] [address] Sodium [Moles/Vol] 139 mmol/L Normal 133-145 [facility] Comment on above: Performed By: #### 5 7021-8 #### MELISA Galvan (75246) [facility] () [address] [place] [address] Urea nitrogen [Mass/Vol] 4 mg/dL Low 8-25 [facility] Comment on above: Performed By: #### 5 7021-8 #### MELISA Galvan (14729) [facility] () [address] [place] [address] Anion gap [Moles/Vol] 7 mmol/L NINF - 19 mmol/L [facility] Calcium [Mass/Vol] 8.0 mg/dL Low 8.5 - 10.4 mg/dL [facility] Chloride [Moles/Vol] 111 mmol/L High 97 - 107 mmol/L [facility] CO2 [Moles/Vol] 21 mmol/L Low 24 - 31 mmol/L [facility] Creatinine [Mass/Vol] 0.70 mg/dL 0.40 - 1.60 mg/dL [facility] eGFR - PINF [facility] Comment on above: Calculations of jessica mated GFR are performed using the 2020 CKD-EPI Study Refit equation without the race variable for the IDMS-Traceable creatinine methods. https://jasn.asnjournals.org/content//ASN.35582203 88 Glucose [Mass/Vol] 100 mg/dL High 65 - 99 mg/dL [facility] Interpretation and review of laboratory results Abnormal [facility] Potassium [Moles/Vol] 3.9 mmol/L 3.4 - 5.1 mmol/L [facility] Sodium [Moles/Vol] 139 mmol/L 133 - 145 mmol/L [facility] Urea nitrogen [Mass/Vol] 4 mg/dL Low 8 - 25 mg/dL [facility] CBC panel Auto (Bld)on 03-07 Erythrocyte distribution width (RBC) [Ratio] 13.2 % Normal 11.5-14.5 [facility] Comment on above: Performed By: #### 5 7021-8 #### MELISA Galvan (13116) [facility] () [address] [place] [address] Hematocrit (Bld) [Volume fraction] 33.3 % Low 36.0-46.0 [facility] Comment on above: Performed By: #### 5 7021-8 #### MELISA Galvan (14330) [facility] () [address] [place] [address] Hemoglobin (Bld) [Mass/Vol] 11.0 g/dL Low 12.0-16.0 [facility] Comment on above: Performed By: #### 5 7021-8 #### MELISA Galvan (17990) [facility] () [address] [place] [address] MCH (RBC) [Entitic mass] 31.3 pg Normal 26.0-34.0 [facility] Comment on above: Performed By: #### 5 7021-8 #### MELISA Galvan (46228) [facility] () [address] [place] [address] MCHC (RBC) [Mass/Vol] 33.0 g/dL Normal 32.0-36.0 [facility] Comment on above: Performed By: #### 5 7021-8 #### MELISA Galvan (97615) [facility] () [address] [place] [address] MCV (RBC) [Entitic vol] 95 fL Normal 80-100 [facility] Comment on above: Performed By: #### 5 7021-8 #### MELISA Galvan (19447) [facility] () [address] [place] [address] Nucleated RBC/100 WBC (Bld) [Ratio] 0.0 /100 WBCs Normal 0.0-0.0 [facility] Comment on above: Performed By: #### 5 7021-8 #### MELISA Galvan (54370) [facility] () [address] [place] [address] Platelets (Bld) [#/Vol] 155 x10*3/uL Normal 150-450 [facility] Comment on above: Performed By: #### 5 7021-8 #### MELISA Galvan (69125) [facility] () [address] [place] [address] RBC (Bld) [#/Vol] 3.51 x10*6/uL Low 4.00-5.20 [facility] Comment on above: Performed By: #### 5 7021-8 #### MELISA Galvan (27431) [facility] () [address] [place] [address] WBC (Bld) [#/Vol] 5.1 x10*3/uL Normal 4.4-11.3 [facility] Comment on above: Performed By: #### 5 7021-8 #### MELISA Galvan (38038) [facility] () [address] [place] [address] Erythrocyte distribution width (RBC) [Ratio] 13.2 % 11.5 - 14.5 % [facility] Hematocrit (Bld) [Volume fraction] 33.3 % Low 36.0 - 46.0 % [facility] Hemoglobin (Bld) [Mass/Vol] 11.0 g/dL Low 12.0 - 16.0 g/dL [facility] Interpretation and review of laboratory results Abnormal [facility] MCH (RBC) [Entitic mass] 31.3 pg 26.0 - 34.0 pg [facility] MCHC (RBC) [Mass/Vol] 33.0 g/dL 32.0 - 36.0 g/dL [facility] MCV (RBC) [Entitic vol] 95 fL 80 - 100 fL [facility] Nucleated RBC/100 WBC (Bld) [Ratio] 0.0 % [facility] Platelets (Bld) [#/Vol] 155 10*3/uL [facility] RBC (Bld) [#/Vol] 3.51 10*6/uL Low [facility] WBC (Bld) [#/Vol] 5.1 10*3/uL [facility] Glucose Test strip manual (B ld) [Mass/Vol]on 03-07-2023 Glucose [Mass/Vol] 125 mg/dL High 74-99 [facility] Comment on above: Performed By: #### 2 4323-8 #### MELISA Galvan ([id number]) [facility] () [address] [place] [address] Glucose [Mass/Vol] 125 mg/dL High 74 - 99 mg/dL [facility] Interpretation and review of laboratory results Abnormal [facility] Glucose [Mass/Vol] 117 mg/dL High 74-99 [facility] Comment on above: Performed By: #### 2 4323-8 #### MELISA Galvan ([id number]) [facility] () [address] [place] [address] Glucose [Mass/Vol] 117 mg/dL High 74 - 99 mg/dL [facility] Interpretation and review of laboratory results Abnormal [facility] Glucose [Mass/Vol] 98 mg/dL Normal 74-99 [facility] Comment on above: Performed By: #### 2 4323-8 #### MELISA Galvan ([id number]) [facility] () [address] [place] [address] Glucose [Mass/Vol] 98 mg/dL 74 - 99 mg/dL [facility] Interpretation and review of laboratory results Normal [facility] Glucose [Mass/Vol] 98 mg/dL Normal 74-99 [facility] Comment on above: Performed By: #### 2 4323-8 #### MELISA Galvan ([id number]) [facility] () [address] [place] [address] Glucose [Mass/Vol] 98 mg/dL 74 - 99 mg/dL [facility] Interpretation and review of laboratory results Normal [facility] Glucose [Mass/Vol] 108 mg/dL High 74-99 [facility] Comment on above: Performed By: #### 5 7021-8 #### MELISA Galvan ([id number]) [facility] () [address] [place] [address] Glucose [Mass/Vol] 108 mg/dL High 74 - 99 mg/dL [facility] Interpretation and review of laboratory results Abnormal [facility] Glucose [Mass/Vol] 119 mg/dL High 74-99 [facility] Comment on above: Performed By: #### 5 7021-8 #### MELISA Galvan ([id number]) [facility] () [address] [place] [address] Glucose [Mass/Vol] 119 mg/dL High 74 - 99 mg/dL [facility] Interpretation and review of laboratory results Abnormal [facility] Basic metabolic 2000 panelon 03-06-2023 Anion gap [Moles/Vol] 7 mmol/L Normal <=19 [facility] Comment on above: Performed By: #### 5 7021-8 #### MELISA Galvan ([id number]) [facility] () [address] [place] [address] Calcium [Mass/Vol] 8.1 mg/dL Low 8.5-10.4 [facility] Comment on above: Performed By: #### 5 7021-8 #### MELISA Galvan ([id number]) [facility] () [address] [place] [address] Chloride [Moles/Vol] 109 mmol/L High 97-107 [facility] Comment on above: Performed By: #### 5 7021-8 #### MELISA Galvan ([id number]) [facility] () [address] [place] [address] CO2 [Moles/Vol] 21 mmol/L Low 24-31 [place] [facility] Comment on above: Performed By: #### 5 7021-8 #### MELISA Galvan ([id number]) [facility] () [address] [place] [address] Creatinine [Mass/Vol] 0.70 mg/dL Normal 0.40-1.60 [facility] Comment on above: Performed By: #### 5 7021-8 #### MELISA Galvan ([id number]) [facility] () [address] [place] [address] GFR/1.73 sq M.predicted MDRD (S/P/Bld) [Vol rate/Area] mL/min/{1.73_m2} Normal >60 [facility] Comment on above: Result Comment: Calc ulations of estimated GFR are performed using the 2020 CKD-EPI Study Refit equation without the race variable for the IDMS-Traceable creatinine methods. https://jasn.asnjournals.org/content//ASN.76462751 88 Performed By: #### 5 7021-8 #### MELISA Galvan (85268) [facility] () [address] [place] [address] Glucose [Mass/Vol] 149 mg/dL High 65-99 [facility] Comment on above: Performed By: #### 5 7021-8 #### MELISA Galvan ([id number]) [facility] () [address] [place] [address] Potassium [Moles/Vol] 3.7 mmol/L Normal 3.4-5.1 [facility] Comment on above: Performed By: #### 5 7021-8 #### MELISA Galvan (55959) [facility] () [address] [place] [address] Sodium [Moles/Vol] 137 mmol/L Normal 133-145 [facility] Comment on above: Performed By: #### 5 7021-8 #### MELISA Galvan ([id number]) [facility] () [address] [place] [address] Urea nitrogen [Mass/Vol] 5 mg/dL Low 8-25 [facility] Comment on above: Performed By: #### 5 7021-8 #### MELISA Galvan (29984) [facility] () [address] [place] [address] Anion gap [Moles/Vol] 7 mmol/L NINF - 19 mmol/L [facility] Calcium [Mass/Vol] 8.1 mg/dL Low 8.5 - 10.4 mg/dL [facility] Chloride [Moles/Vol] 109 mmol/L High 97 - 107 mmol/L [facility] CO2 [Moles/Vol] 21 mmol/L Low 24 - 31 mmol/L [facility] Creatinine [Mass/Vol] 0.70 mg/dL 0.40 - 1.60 mg/dL [facility] eGFR - PINF [facility] Comment on above: Calculations of jessica mated GFR are performed using the 2020 CKD-EPI Study Refit equation without the race variable for the IDMS-Traceable creatinine methods. https://jasn.asnjournals.org/content//ASN.36211196 88 Glucose [Mass/Vol] 149 mg/dL High 65 - 99 mg/dL [facility] Interpretation and review of laboratory results Abnormal [facility] Potassium [Moles/Vol] 3.7 mmol/L 3.4 - 5.1 mmol/L [facility] Sodium [Moles/Vol] 137 mmol/L 133 - 145 mmol/L [facility] Urea nitrogen [Mass/Vol] 5 mg/dL Low 8 - 25 mg/dL [facility] CBC panel Auto (Bld)on 03-06 Erythrocyte distribution width (RBC) [Ratio] 12.9 % Normal 11.5-14.5 [facility] Comment on above: Performed By: #### 2 4356-8 #### MELISA Galvan (17743) [facility] () [address] [place] [address] Hematocrit (Bld) [Volume fraction] 35.1 % Low 36.0-46.0 [facility] Comment on above: Performed By: #### 2 4356-8 #### MELISA Galvan (87695) [facility] () [address] [place] [address] Hemoglobin (Bld) [Mass/Vol] 11.8 g/dL Low 12.0-16.0 [facility] Comment on above: Performed By: #### 2 4356-8 #### MELISA Galvan (77743) [facility] () [address] [place] [address] MCH (RBC) [Entitic mass] 30.8 pg Normal 26.0-34.0 [facility] Comment on above: Performed By: #### 2 4356-8 #### MELISA Galvan ([id number]) [facility] () [address] [place] [address] MCHC (RBC) [Mass/Vol] 33.6 g/dL Normal 32.0-36.0 [facility] Comment on above: Performed By: #### 2 4356-8 #### MELISA Galvan ([id number]) [facility] () [address] [place] [address] MCV (RBC) [Entitic vol] 92 fL Normal 80-100 [facility] Comment on above: Performed By: #### 2 4356-8 #### MELISA Galvan (23748) [facility] () [address] [place] [address] Nucleated RBC/100 WBC (Bld) [Ratio] 0.0 /100 WBCs Normal 0.0-0.0 [facility] Comment on above: Performed By: #### 2 4356-8 #### MELISA Galvan ([id number]) [facility] () [address] [place] [address] Platelets (Bld) [#/Vol] 179 x10*3/uL Normal 150-450 [facility] Comment on above: Performed By: #### 2 4356-8 #### MELISA Galvan ([id number]) [facility] () [address] [place] [address] RBC (Bld) [#/Vol] 3.83 x10*6/uL Low 4.00-5.20 [facility] Comment on above: Performed By: #### 2 4356-8 #### MELISA Galvan (20785) [facility] () [address] [place] [address] WBC (Bld) [#/Vol] 5.5 x10*3/uL Normal 4.4-11.3 [facility] Comment on above: Performed By: #### 2 4356-8 #### MELISA Galvan (92540) [facility] () [address] [place] [address] Erythrocyte distribution width (RBC) [Ratio] 12.9 % 11.5 - 14.5 % [facility] Hematocrit (Bld) [Volume fraction] 35.1 % Low 36.0 - 46.0 % [facility] Hemoglobin (Bld) [Mass/Vol] 11.8 g/dL Low 12.0 - 16.0 g/dL [facility] Interpretation and review of laboratory results Abnormal [facility] MCH (RBC) [Entitic mass] 30.8 pg 26.0 - 34.0 pg [facility] MCHC (RBC) [Mass/Vol] 33.6 g/dL 32.0 - 36.0 g/dL [facility] MCV (RBC) [Entitic vol] 92 fL 80 - 100 fL [facility] Nucleated RBC/100 WBC (Bld) [Ratio] 0.0 % [facility] Platelets (Bld) [#/Vol] 179 10*3/uL [facility] RBC (Bld) [#/Vol] 3.83 10*6/uL Low [facility] WBC (Bld) [#/Vol] 5.5 10*3/uL [facility] Glucose Test strip manual (B ld) [Mass/Vol]on 03-06-2023 Glucose [Mass/Vol] 103 mg/dL High 74-99 [facility] Comment on above: Performed By: #### 5 7021-8 #### MLEISA Galvan (40806) [facility] () [address] [place] [address] Glucose [Mass/Vol] 103 mg/dL High 74 - 99 mg/dL [facility] Interpretation and review of laboratory results Abnormal [facility] Glucose [Mass/Vol] 119 mg/dL High 74-99 [facility] Comment on above: Performed By: #### 5 7021-8 #### MELISA Galvan ([id number]) [facility] () [address] [place] [address] Glucose [Mass/Vol] 119 mg/dL High 74 - 99 mg/dL [facility] Interpretation and review of laboratory results Abnormal [facility] Glucose [Mass/Vol] 108 mg/dL High 74-99 [facility] Comment on above: Performed By: #### 5 7021-8 #### MELISA Galvan (36771) [facility] () [address] [place] [address] Glucose [Mass/Vol] 108 mg/dL High 74 - 99 mg/dL [facility] Interpretation and review of laboratory results Abnormal [facility] Glucose [Mass/Vol] 113 mg/dL High 74-99 [facility] Comment on above: Performed By: #### 5 7021-8 #### MELISA Galvan (26713) [facility] () [address] [place] [address] Glucose [Mass/Vol] 113 mg/dL High 74 - 99 mg/dL [facility] Interpretation and review of laboratory results Abnormal [facility] Glucose [Mass/Vol] 152 mg/dL High 74-99 [facility] Comment on above: Performed By: #### 2 4356-8 #### MELISA Galvan (70878) [facility] () [address] [place] [address] Glucose [Mass/Vol] 152 mg/dL High 74 - 99 mg/dL [facility] Interpretation and review of laboratory results Abnormal [facility] Glucose [Mass/Vol] 176 mg/dL High 74-99 [facility] Comment on above: Performed By: #### 2 4356-8 #### MELISA Galvan (55364) [facility] () [address] [place] [address] Magnesiumon 03-06-2023 Magnesium [Mass/Vol] 1.70 mg/dL Normal 1.60-3.10 [facility] Comment on above: Performed By: #### 2 4356-8 #### MELISA Galvan (87916) [facility] () [address] [place] [address] Magnesium [Mass/Vol] 1.70 mg/dL 1.60 - 3.10 mg/dL [facility] No Panel Informationon 03-06 Interpretation and review of laboratory results [facility] Phosphateon 03-06-2023 Phosphate [Mass/Vol] 3.0 mg/dL Normal 2.5-4.5 [facility] Comment on above: Performed By: #### 2 4356-8 #### MELISA Galvan ([id number]) [facility] () [address] [place] [address] Phosphoruson 03-06-2023 Phosphate [Mass/Vol] 3.0 mg/dL 2.5 - 4.5 mg/dL [facility] XR CHEST 1 VIEWon 03-06-2023 XR CHEST 1 VIEW Interpreted By: Sara Zarate, STUDY: XR CHEST 1 VIEW; 03/06/2023 7:32 am INDICATION: Signs/Symptoms:post op COMPARISON: None ACCESSION NUMBER(S): [id number] ORDERING CLINICIAN: JASON FOSTER TECHNIQUE: Frontal and lateral chest radiographs. FINDINGS: Enteric tube is seen with the tip overlying the expected location of the stomach. Right upper extremity PICC is seen with the tip overlying the distal SVC. The cardiomediastinal silhouette is unremarkable. The lungs are clear. No pleural effusion is identified. The osseous structures are intact. IMPRESSION: Appliance positioning as noted above. No consolidation. Signed by: Sara Zarate 03/06/2023 1:48 PM Dictation workstation: [id number] Normal [facility] XR Chest Single viewon 03-06 Appliance positioning as noted above. No consolidation. Signed by: Sara Zarate 03/06/2023 1:48 PM Dictation workstation: [id number] MMODAL Interpreted By: Rajdev, Maharshi, STUDY: XR CHEST 1 VIEW; 03/06/2023 7:32 am INDICATION: Signs/Symptoms:post op COMPARISON: None ACCESSION NUMBER(S): [id number] ORDERING CLINICIAN: JASON FOSTER TECHNIQUE: Frontal and lateral chest radiographs. FINDINGS: Enteric tube is seen with the tip overlying the expected location of the stomach. Right upper extremity PICC is seen with the tip overlying the distal SVC. The cardiomediastinal silhouette is unremarkable. The lungs are clear. No pleural effusion is identified. The osseous structures are intact. [facility]arate MD - 03/06/2023 Interpreted By: Sara Zarate, STUDY: XR CHEST 1 VIEW; 03/06/2023 7:32 am INDICATION: Signs/Symptoms:post op COMPARISON: None ACCESSION NUMBER(S): [id number] ORDERING CLINICIAN: JASON FOSTER TECHNIQUE: Frontal and lateral chest radiographs. FINDINGS: Enteric tube is seen with the tip overlying the expected location of the stomach. Right upper extremity PICC is seen with the tip overlying the distal SVC. The cardiomediastinal silhouette is unremarkable. The lungs are clear. No pleural effusion is identified. The osseous structures are intact. IMPRESSION: Appliance positioning as noted above. No consolidation. Signed by: Sara Zarate 03/06/2023 1:48 PM Dictation workstation: [id number] [facility] Work Phone: Radiology Study observation (narrative) [facility] Work Phone: XR Chest Single viewOrdered By: Sara Zarate on 03-06-2023 [facility] Work Phone: Basic metabolic 2000 panelon 03-05-2023 Anion gap [Moles/Vol] 13 mmol/L Normal <=19 [facility] Comment on above: Performed By: #### 2 4356-8 #### MELISA Galvan ([id number]) [facility] ([facility]) [address] [place] [address] Calcium [Mass/Vol] 8.0 mg/dL Low 8.5-10.4 [facility] Comment on above: Performed By: #### 2 4356-8 #### MELISA Galvan (46622) [facility] () [address] [place] [address] Chloride [Moles/Vol] 107 mmol/L Normal 97-107 [facility] Comment on above: Performed By: #### 2 4356-8 #### MELISA Galvan (82093) [facility] () [address] [place] [address] CO2 [Moles/Vol] 18 mmol/L Low 24-31 [facility] Comment on above: Performed By: #### 2 4356-8 #### MELISA Galvan (32587) [facility] () [address] [place] [address] Creatinine [Mass/Vol] 0.70 mg/dL Normal 0.40-1.60 [facility] Comment on above: Performed By: #### 2 4356-8 #### MELISA Galvan (91770) [facility] () [address] [place] [address] GFR/1.73 sq M.predicted MDRD (S/P/Bld) [Vol rate/Area] mL/min/{1.73_m2} Normal >60 [facility] Comment on above: Result Comment: Calc ulations of estimated GFR are performed using the 2020 CKD-EPI Study Refit equation without the race variable for the IDMS-Traceable creatinine methods. https://jasn.asnjournals.org/content/early/ASN.84797005 88 Performed By: #### 2 4356-8 #### MELISA Galvan (78451) [facility] () [address] [place] [address] Glucose [Mass/Vol] 107 mg/dL High 65-99 [facility] Comment on above: Performed By: #### 2 4356-8 #### MELISA Galvan (52394) [facility] () [address] [place] [address] Potassium [Moles/Vol] 3.6 mmol/L Normal 3.4-5.1 [facility] Comment on above: Performed By: #### 2 4356-8 #### MELISA Galvan (30725) [facility] () [address] [place] [address] Sodium [Moles/Vol] 138 mmol/L Normal 133-145 [facility] Comment on above: Performed By: #### 2 4356-8 #### MELISA Galvan (16980) [facility] () [address] [place] [address] Urea nitrogen [Mass/Vol] 10 mg/dL Normal 8-25 [facility] Comment on above: Performed By: #### 2 4356-8 #### MELISA Galvan (80088) [facility] () [address] [place] [address] Anion gap [Moles/Vol] 13 mmol/L NINF - 19 mmol/L [facility] Calcium [Mass/Vol] 8.0 mg/dL Low 8.5 - 10.4 mg/dL [facility] Chloride [Moles/Vol] 107 mmol/L 97 - 107 mmol/L [facility] CO2 [Moles/Vol] 18 mmol/L Low 24 - 31 mmol/L [facility] Creatinine [Mass/Vol] 0.70 mg/dL 0.40 - 1.60 mg/dL [facility] eGFR - PINF [facility] Comment on above: Calculations of jessica mated GFR are performed using the 2020 CKD-EPI Study Refit equation without the race variable for the IDMS-Traceable creatinine methods. https://jasn.asnjournals.org/content//ASN.80109326 88 Glucose [Mass/Vol] 107 mg/dL High 65 - 99 mg/dL [facility] Interpretation and review of laboratory results Abnormal [facility] Potassium [Moles/Vol] 3.6 mmol/L 3.4 - 5.1 mmol/L [facility] Sodium [Moles/Vol] 138 mmol/L 133 - 145 mmol/L [facility] Urea nitrogen [Mass/Vol] 10 mg/dL 8 - 25 mg/dL [facility] CBC panel Auto (Bld)on 03-05 Erythrocyte distribution width (RBC) [Ratio] 12.6 % Normal 11.5-14.5 [facility] Comment on above: Performed By: #### 5 8410-2 #### MELISA Galvan (30048) [facility] () [address] [place] [address] Hematocrit (Bld) [Volume fraction] 34.8 % Low 36.0-46.0 [facility] Comment on above: Performed By: #### 5 8410-2 #### MELISA Galvan (08383) [facility] () [address] [place] [address] Hemoglobin (Bld) [Mass/Vol] 11.9 g/dL Low 12.0-16.0 [facility] Comment on above: Performed By: #### 5 8410-2 #### MELISA Galvan (73258) [facility] () [address] [place] [address] MCH (RBC) [Entitic mass] 31.2 pg Normal 26.0-34.0 [facility] Comment on above: Performed By: #### 5 8410-2 #### MELISA Galvan (41265) [facility] () [address] [place] [address] MCHC (RBC) [Mass/Vol] 34.2 g/dL Normal 32.0-36.0 [facility] Comment on above: Performed By: #### 5 8410-2 #### MELISA Galvan (66860) [facility] () [address] [place] [address] MCV (RBC) [Entitic vol] 91 fL Normal 80-100 [facility] Comment on above: Performed By: #### 5 8410-2 #### MELISA Galvan ([id number]) [facility] () [address] [place] [address] Nucleated RBC/100 WBC (Bld) [Ratio] 0.0 /100 WBCs Normal 0.0-0.0 [facility] Comment on above: Performed By: #### 5 8410-2 #### MELISA Galvan (69844) [facility] () [address] [place] [address] Platelets (Bld) [#/Vol] 182 x10*3/uL Normal 150-450 [facility] Comment on above: Performed By: #### 5 8410-2 #### MELISA Galvan (13326) [facility] () [address] [place] [address] RBC (Bld) [#/Vol] 3.82 x10*6/uL Low 4.00-5.20 [facility] Comment on above: Performed By: #### 5 8410-2 #### MELISA Galvan (45788) [facility] () [address] [place] [address] WBC (Bld) [#/Vol] 8.4 x10*3/uL Normal 4.4-11.3 [facility] Comment on above: Performed By: #### 5 8410-2 #### MEILSA Galvan (12822) [facility] () [address] [place] [address] Erythrocyte distribution width (RBC) [Ratio] 12.6 % 11.5 - 14.5 % [facility] Hematocrit (Bld) [Volume fraction] 34.8 % Low 36.0 - 46.0 % [facility] Hemoglobin (Bld) [Mass/Vol] 11.9 g/dL Low 12.0 - 16.0 g/dL [facility] Interpretation and review of laboratory results Abnormal [facility] MCH (RBC) [Entitic mass] 31.2 pg 26.0 - 34.0 pg [facility] MCHC (RBC) [Mass/Vol] 34.2 g/dL 32.0 - 36.0 g/dL [facility] MCV (RBC) [Entitic vol] 91 fL 80 - 100 fL [facility] Nucleated RBC/100 WBC (Bld) [Ratio] 0.0 % [facility] Platelets (Bld) [#/Vol] 182 10*3/uL [facility] RBC (Bld) [#/Vol] 3.82 10*6/uL Low [facility] WBC (Bld) [#/Vol] 8.4 10*3/uL [facility] Glucose Test strip manual (B ld) [Mass/Vol]on 03-05-2023 Glucose [Mass/Vol] 176 mg/dL High 74 - 99 mg/dL [facility] Interpretation and review of laboratory results Abnormal [facility] Glucose [Mass/Vol] 177 mg/dL High 74-99 [facility] Comment on above: Performed By: #### 2 4356-8 #### MELISA Galvan (57495) [facility] () [address] [place] [address] Glucose [Mass/Vol] 177 mg/dL High 74 - 99 mg/dL [facility] Interpretation and review of laboratory results Abnormal [facility] Glucose [Mass/Vol] 111 mg/dL High 74-99 [facility] Comment on above: Performed By: #### 2 4356-8 #### MELISA Galvan (48217) [facility] () [address] [place] [address] Glucose [Mass/Vol] 111 mg/dL High 74 - 99 mg/dL [facility] Interpretation and review of laboratory results Abnormal [facility] Magnesiumon 03-05-2023 Magnesium [Mass/Vol] 1.70 mg/dL Normal 1.60-3.10 [facility] Comment on above: Performed By: #### 2 4356-8 #### MELISA Galvan (13092) [facility] () [address] [place] [address] Magnesium [Mass/Vol] 1.70 mg/dL 1.60 - 3.10 mg/dL [facility] No Panel Informationon 03-05 Interpretation and review of laboratory results Normal [facility] Phosphateon 03-05-2023 Phosphate [Mass/Vol] 4.3 mg/dL Normal 2.5-4.5 [facility] Comment on above: Performed By: #### 2 4356-8 #### MELISA Galvan (57515) [facility] () [address] [place] [place] [address] Phosphoruson 03-05-2023 Phosphate [Mass/Vol] 4.3 mg/dL 2.5 - 4.5 mg/dL [facility] Surgical pathology studyon 0 03-05-2023 Surgical pathology study Pathology report.total SEE COMMENT Surgical Pathology Case: [id number] Authorizing Provider: Sherry Magaña MD Collected: 03/05/2023 1125 Ordering Location: [facility] Received: 03/05/2023 1314 Center [place] Pathologist: Melisa Rodriguez MD Specimen: LIGAMENT, Median Arcuate Ligament Path report.final diagnosis SEE COMMENT MEDIAN ARCUATE LIGAMENT, EXCISION: Fibroadipose, neural and small fragment of lymphoid tissue tissue, clinically median arcuate ligament syndrome. Laboratory comment By the signature on this report, the individual or group listed as making the Final Interpretation/Diag nosis certifies that they have reviewed this case. 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 The specimen is sectioned and entirely submitted in 1 cassette. [facility] Gross dissection performed at: [facility] [id number] [place] [address] [facility] Comment on above: Order Comment: Pre-o p diagnosis: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] VERAB/VERIFY ABORHon 024 ABO group Nom (Bld) O Normal [facility] Comment on above: Performed By: #### V ERAB #### MELISA Galvan ([id number]) [facility]) [id number] [place] [address] US D Ag Ql (Bld) Positive [facility] Comment on above: Performed By: #### V ERAB #### MELISA Galvan ([id number]) [facility] ([facility]) [address] [place] [address] XR CHEST 1 VIEWon 03-05-2023 XR CHEST 1 VIEW Interpreted By: Baldomero Hendrickson, STUDY: XR CHEST 1 VIEW; 03/05/2023 3:11 pm INDICATION: CLINICAL INFORMATION: Signs/Symptoms:NG tube placement confirmation. COMPARISON: 03/05/2019 at 745 hours ACCESSION NUMBER(S): [id number] ORDERING CLINICIAN: DESMOND TIRADO TECHNIQUE: Portable chest one view. FINDINGS: The cardiac size is indeterminate in view of the AP projection. Nasogastric tube extends into the left upper quadrant. Right-sided PICC line is present with the catheter tip overlying the SVC right atrial junction. No infiltrates or effusions are identified. IMPRESSION: 1. Status post NG tube insertion with the tube extending into the left upper quadrant. 2. Stable appearance of the PICC line. 3. No infiltrates are identified. MACRO: none Signed by: Baldomero Hendrickson 03/05/2023 3:31 PM Dictation workstation: [id number] [facility] XR CHEST 1 VIEW Interpreted By: Nya Ahmadi, STUDY: XR CHEST 1 VIEW 03/05/2023 7:51 am INDICATION: Signs/Symptoms:conf irm line placement COMPARISON: None available. ACCESSION NUMBER(S): [id number] ORDERING CLINICIAN: SERENA GEORGE TECHNIQUE: AP erect view of the chest FINDINGS: Right arm PICC line terminates in the SVC. There is no pneumothorax. The heart, mediastinum, and lungs are normally visualized. IMPRESSION: Right arm PICC line terminating in SVC without pneumothorax. No acute cardiopulmonary disease. Signed by: Nya Ahmadi 03/05/2023 7:54 AM Dictation workstation: [id number] [facility] XR Chest Single viewon 03-05 1. Status post NG tube insertion with the tube extending into the left upper quadrant. 2. Stable appearance of the PICC line. 3. No infiltrates are identified. MACRO: none Signed by: Baldomero Hendrickson 03/05/2023 3:31 PM Dictation workstation: [id number] [facility] MMODAL Interpreted By: Baldomero Hendrickson, STUDY: XR CHEST 1 VIEW; 03/05/2023 3:11 pm INDICATION: CLINICAL INFORMATION: Signs/Symptoms:NG tube placement confirmation. COMPARISON: 03/05/2019 at 745 hours ACCESSION NUMBER(S): [id number] ORDERING CLINICIAN: DESMOND TIRADO TECHNIQUE: Portable chest one view. FINDINGS: The cardiac size is indeterminate in view of the AP projection. Nasogastric tube extends into the left upper quadrant. Right-sided PICC line is present with the catheter tip overlying the SVC right atrial junction. No infiltrates or effusions are identified. [facility] MMODAL Baldomero Hendrcikson MD - 03/05/2023 Interpreted By: Baldomero Hendrickson, STUDY: XR CHEST 1 VIEW; 03/05/2023 3:11 pm INDICATION: CLINICAL INFORMATION: Signs/Symptoms:NG tube placement confirmation. COMPARISON: 03/05/2019 at 745 hours ACCESSION NUMBER(S): [id number] ORDERING CLINICIAN: DESMOND TIRADO TECHNIQUE: Portable chest one view. FINDINGS: The cardiac size is indeterminate in view of the AP projection. Nasogastric tube extends into the left upper quadrant. Right-sided PICC line is present with the catheter tip overlying the SVC right atrial junction. No infiltrates or effusions are identified. IMPRESSION: 1. Status post NG tube insertion with the tube extending into the left upper quadrant. 2. Stable appearance of the PICC line. 3. No infiltrates are identified. MACRO: none Signed by: Baldomero Hendrickson 03/05/2023 3:31 PM Dictation workstation: [id number] [facility] Work Phone: Radiology Study observation (narrative) [facility] Work Phone: Right arm PICC line terminating in SVC without pneumothorax. No acute cardiopulmonary disease. Signed by: Nya Ahmadi 03/05/2023 7:54 AM Dictation workstation: [id number] [facility]ODAL Interpreted By: Nya Ahmadi, STUDY: XR CHEST 1 VIEW 03/05/2023 7:51 am INDICATION: Signs/Symptoms:conf irm line placement COMPARISON: None available. ACCESSION NUMBER(S): [id number] ORDERING CLINICIAN: SERENA GEORGE TECHNIQUE: AP erect view of the chest FINDINGS: Right arm PICC line terminates in the SVC. There is no pneumothorax. The heart, mediastinum, and lungs are normally visualized. [facility] Nya Ahmadi MD - 03/05/2023 Interpreted By: Nya Ahmadi, STUDY: XR CHEST 1 VIEW 03/05/2023 7:51 am INDICATION: Signs/Symptoms:conf irm line placement COMPARISON: None available. ACCESSION NUMBER(S): [id number] ORDERING CLINICIAN: SERENA GEORGE TECHNIQUE: AP erect view of the chest FINDINGS: Right arm PICC line terminates in the SVC. There is no pneumothorax. The heart, mediastinum, and lungs are normally visualized. IMPRESSION: Right arm PICC line terminating in SVC without pneumothorax. No acute cardiopulmonary disease. Signed by: Nya Ahmadi 03/05/2023 7:54 AM Dictation workstation: [id number] [facility] Work Phone: Radiology Study observation (narrative) [facility] Work Phone: XR Chest Single viewOrdered By: Baldomero Hendrickson on 03-05-2023 [facility] Work Phone: XR Chest Single viewOrdered By: Nya Ahmadi on 03-05-2023 [facility] Work Phone: Basic metabolic 2000 panelon 03-02-2023 Anion gap [Moles/Vol] 14 mmol/L Normal <=19 [facility] Comment on above: Performed By: #### 2 4321-2 #### MELISA Galvan ([id number]) [facility] () [address] [place] [address] Calcium [Mass/Vol] 9.0 mg/dL Normal 8.5-10.4 [facility] Comment on above: Performed By: #### 2 4321-2 #### MELISA Galvan ([id number]) [facility] () [address] [place] [address] Chloride [Moles/Vol] 107 mmol/L Normal 97-107 [facility] Comment on above: Performed By: #### 2 4321-2 #### MELISA Galvan ([id number]) [facility] () [address] [place] [address] CO2 [Moles/Vol] 21 mmol/L Low 24-31 [facility] Comment on above: Performed By: #### 2 4321-2 #### MELISA Galvan ([id number]) [facility] () [address] [place] [address] Creatinine [Mass/Vol] 0.80 mg/dL Normal 0.40-1.60 [facility] Comment on above: Performed By: #### 2 4321-2 #### MELISA Galvan ([id number]) [facility] () [address] [place] [address] GFR/1.73 sq M.predicted MDRD (S/P/Bld) [Vol rate/Area] mL/min/{1.73_m2} Normal >60 [facility] Comment on above: Result Comment: Calc ulations of estimated GFR are performed using the 2020 CKD-EPI Study Refit equation without the race variable for the IDMS-Traceable creatinine methods. https://jasn.asnjournals.org/content//ASN.17436952 88 Performed By: #### 2 4321-2 #### MELISA Galvan ([id number]) [facility] () [address] [place] [address] Glucose [Mass/Vol] 68 mg/dL Normal 65-99 [facility] Comment on above: Performed By: #### 2 4321-2 #### MELISA Galvan ([id number]) [facility] () [address] [place] [address] Potassium [Moles/Vol] 4.0 mmol/L Normal 3.4-5.1 [facility] Comment on above: Performed By: #### 2 4321-2 #### MELISA Galvan ([id number]) [facility] () [address] [place] [address] Sodium [Moles/Vol] 142 mmol/L Normal 133-145 [facility] Comment on above: Performed By: #### 2 4321-2 #### MELISA Galvan ([id number]) [facility] () [address] [place] [address] Urea nitrogen [Mass/Vol] 8 mg/dL Normal 8-25 [facility] Comment on above: Performed By: #### 2 4321-2 #### MELISA Galvan ([id number]) [facility] () [address] [place] [address] Blood type and Indirect anti body screen panel (Bld)on 03-02-2023 ABO group Nom (Bld) O Normal [facility] Comment on above: Performed By: #### 3 4532-2 #### MELISA Galvan ([id number]) [facility] ([facility]) [address] [place] [address] [place] Blood group antibody screen Ql Negative [facility] Comment on above: Performed By: #### 3 4532-2 #### MELISA Galvan ([id number]) [facility] ([facility]) [address] [place] [address] [place] D Ag Ql (Bld) Positive [facility] Comment on above: Performed By: #### 3 4532-2 #### MELISA Galvan ([id number]) [facility] ([facility]) [address] Staphylococcus aureus.methic illin resistant isolateon 03-02-2023 MRSA isol Org specific cx Ql (Nose) Test: Staphylococcus aureus/MRSA colonization, Culture Specimen Source: Anterior Nares Specimen Type: Swab Specimen Date: 03/02/2023 3:17 PM Result Date: 03/04/2023 7:55 AM Result Status: Final result Abnormal: No Resulting Lab: [facility] [address] [facility] [address] CULTURE No Staphylococcus aureus isolated Normal [facility] Comment on above: Performed By: #### 5 2969-3 #### ALON Johnson ([id number]) [facility] ([facility]) [id number] [place] [address] Alanine aminotransferase [En zymatic activity/volume] in Serum or PlasmaOrdered By: Roseline Mejia on 02-13-2023 ALT [Catalytic activity/Vol] 11 U/L 7-52 [facility] Albumin [Mass/volume] in Ser um or Plasma by Bromocresol green (BCG) dye binding methoOrdered By: Roseline Mejia on 02-13-2023 Albumin BCG dye [Mass/Vol] 4.0 g/dL 3.5-5.7 [facility] Alkaline phosphatase [Enzyma tic activity/volume] in Serum or PlasmaOrdered By: Roseline Mejia on 02-13-2023 ALP [Catalytic activity/Vol] 55 U/L 34-104 [facility] Aspartate aminotransferase [ Enzymatic activity/volume] in Serum or PlasmaOrdered By: Roseline Mejia on 02-13-2023 AST [Catalytic activity/Vol] 20 U/L 13-39 [facility] Basic Metabolic Panelon 01-17 Anion gap [Moles/Vol] 10.5 mmol/L Normal 6.0-15.0 [facility] Comment on above: Performed By: #### L IPASE, CBC, HEPATIC, BMP ####[place] [address] [place] [address] [facility] Calcium [Mass/Vol] 8.8 mg/dL Normal 8.6-10.3 [facility] Comment on above: Performed By: #### L IPASE, CBC, HEPATIC, BMP ####[place] [id number] [facility] Chloride [Moles/Vol] 109 mmol/L High 98-107 [facility] Comment on above: Performed By: #### L IPASE, CBC, HEPATIC, BMP ####[address] [address] [facility] CO2 [Moles/Vol] 21.2 mmol/L Normal 21.0-31.0 [facility] Comment on above: Performed By: #### L IPASE, CBC, HEPATIC, BMP ####[place] [id number] [facility] Creatinine [Mass/Vol] 0.73 mg/dL Normal 0.60-1.20 [facility] Comment on above: Performed By: #### L IPASE, CBC, HEPATIC, BMP ####[place] [id number] [facility] Creatinine Clr Calc Pharmacy 119.02 Normal [facility] Comment on above: Performed By: #### L IPASE, CBC, HEPATIC, BMP ####[place] [address] [facility] GFR/1.73 sq M.predicted MDRD (S/P/Bld) [Vol rate/Area] mL/min/{1.73_m2} Normal [facility] Comment on above: Performed By: #### L IPASE, CBC, HEPATIC, BMP ####[place] [id number] [facility] Glucose [Mass/Vol] 85 mg/dL Normal 70-100 [facility] Comment on above: Result Comment: [place] Glucose Reference Range is dependent on time and content of last meal. Glucose of more than 200 mg/dL in a nonstressed, ambulatory subject supports the diagnosis of Diabetes Mellitus. ADA recommended reference range Performed By: #### L IPASE, CBC, HEPATIC, BMP ####[facility] [address] Potassium [Moles/Vol] 3.7 mmol/L Normal 3.5-5.1 [facility] Comment on above: Performed By: #### L IPASE, CBC, HEPATIC, BMP ####[facility] [address] Sodium [Moles/Vol] 137 mmol/L Normal 136-145 [facility] Comment on above: Performed By: #### L IPASE, CBC, HEPATIC, BMP ####[facility] Jgu[address] Urea nitrogen [Mass/Vol] 10 mg/dL Normal 7-25 [facility] Comment on above: Performed By: #### L IPASE, CBC, HEPATIC, BMP ####[place] [address] Basophils Auto (Bld) [#/Vol] Ordered By: Roseline Mejia on 02-13-2023 Basophils (Bld) [#/Vol] 0.1 10*3/uL 0.0-0.2 [facility] Basophils/100 WBC Auto (Bld) Ordered By: Roseline Mejia on 02-13-2023 Basophils/100 WBC (Bld) 1.2 % . [facility] Bilirubin Test strip Ql (U)O rdered By: Roseline Mejia on 02-13-2023 Bilirubin Ql (U) Negative Negative [facility] Bilirubin.direct [Mass/volum e] in Serum or PlasmaOrdered By: Roseline Mejia on 02-13-2023 Bilirubin.direct [Mass/Vol] 0.10 mg/dL 0.03-0.18 [facility] Bilirubin.total [Mass/volume ] in Serum or PlasmaOrdered By: Roseline Mejia on 02-13-2023 Bilirubin [Mass/Vol] 0.5 mg/dL 0.3-1.[address] [facility] [address] abdomen pelvis w conon CT abdomen pelvis w con [facility] [employer] [address] [place] [address] CT Scan Report Signed Patient: Abbey Garcia MR#: [id number] : 1990 Acct:[id number] Age/Sex: 32 / F ADM Date: 02/13/23 Loc: ER Room: Type: [facility] ER Attending Dr: Copies to: DO Roseline [...] Similar splenomegaly. PANCREAS: Unremarkable ADRENAL GLANDS: Unremarkable KIDNEYS:Unremarkabl e AORTA: No abdominal aortic aneurysm identified. RETROPERITONEUM: No significant retroperitoneal abnormalities identified. MESENTERY:Unremarka ble SMALL BOWEL: The small bowel loops are nondistended. The gastric bypass changes APPENDIX: Appendectomy changes identified. COLON: Unremarkable URINARY BLADDER: Urinary bladder is unremarkable. REPRODUCTIVE SYSTEM: Uterus not well seen. PNEUMOPERITONEUM: None PERITONEAL FLUID:None BONY STRUCTURES: Unremarkable ABDOMINAL WALL: Unremarkable CT/CT abdomen pelvis w con IMPRESSION: No acute findings. Nondistended small bowel. Impression dictated by: Jason Soto M.D.02/13/2023 3:42 PM Dictation Location: [place] [address] Transcribed By: [facility] 02/13/23 1542 Dictated By: Jason Soto DO 02/13/23 1537 Signed By: 02/13/23 1542 Normal [facility] Calcium [Mass/volume] in Ser um or PlasmaOrdered By: Roseline Mejia on 02-13-2023 Calcium [Mass/Vol] 8.8 mg/dL 8.6-10.3 [facility] Carbon dioxide, total [Moles /volume] in Serum or PlasmaOrdered By: Roseline Mejia on 02-13-2023 CO2 [Moles/Vol] 21.2 mmol/L 21.0-31.0 [facility] Chloride [Moles/volume] in S elder or PlasmaOrdered By: Roseline Mejia on 02-13-2023 Chloride [Moles/Vol] 109 mmol/L 98-107 [facility] Color Auto (U)Ordered By: Harry Mejia on 02-13-2023 Color (U) Yellow Yellow [facility] Complete Blood Count Auto Di ffon 02-13-2023 Basophils (Bld) [#/Vol] 0.1 10*3/uL Normal 0.0-0.2 [facility] Comment on above: Result Comment: PERF ORMED BY: [facility] [address] [facility] [place] [address] PATHOLOGIST PACKAGING DESIGNER BAUTISTA BAKER M.D. Performed By: #### L IPASE, CBC, HEPATIC, BMP ####[address] Basophils/100 WBC (Bld) 1.2 % Normal . [facility] Comment on above: Performed By: #### L IPASE, CBC, HEPATIC, BMP ####[address] Eosinophils (Bld) [#/Vol] 0.1 10*3/uL Normal 0.0-0.45 [facility] Comment on above: Performed By: #### L IPASE, CBC, HEPATIC, BMP ####[address] Eosinophils/100 WBC (Bld) 1.7 % Normal . [facility] Comment on above: Performed By: #### L IPASE, CBC, HEPATIC, BMP ####[address] Erythrocyte distribution width (RBC) [Ratio] 13.0 % Normal 11.9-15.3 [facility] Comment on above: Performed By: #### L IPASE, CBC, HEPATIC, BMP ####[address] Hematocrit (Bld) [Volume fraction] 36.3 % Normal 34.0-46.4 [facility] Comment on above: Performed By: #### L IPASE, CBC, HEPATIC, BMP ####[address] Hemoglobin (Bld) [Mass/Vol] 12.7 g/dL Normal 11.8-15.4 [facility] Comment on above: Performed By: #### L IPASE, CBC, HEPATIC, BMP ####[address] Lymphocytes (Bld) [#/Vol] 1.7 10*3/uL Normal 1.00-4.8 [facility] Comment on above: Performed By: #### L IPASE, CBC, HEPATIC, BMP ####[address] Lymphocytes/100 WBC (Bld) 40.8 % Normal . [facility] Comment on above: Performed By: #### L IPASE, CBC, HEPATIC, BMP ####[address] MCH (RBC) [Entitic mass] 31.1 pg Normal 24.7-34.3 [facility] Comment on above: Performed By: #### L IPASE, CBC, HEPATIC, BMP ####[address] MCV (RBC) [Entitic vol] 89.2 fL Normal 80-100 [facility] Comment on above: Performed By: #### L IPASE, CBC, HEPATIC, BMP ####[address] Mean Corpuscular HGB Conc 34.9 g/dL Normal 32.0-35.0 [facility] Comment on above: Performed By: #### L IPASE, CBC, HEPATIC, BMP ####[address] Monocytes (Bld) [#/Vol] 0.3 10*3/uL Normal 0.0-0.8 [facility] Comment on above: Performed By: #### L IPASE, CBC, HEPATIC, BMP ####[address] Monocytes/100 WBC (Bld) 17.39 % Normal 0.00-20.00 [facility] Comment on above: Performed By: #### L IPASE, CBC, HEPATIC, BMP ####[address] Monocytes/100 WBC (Bld) 7.3 % Normal . [facility] Comment on above: Performed By: #### L IPASE, CBC, HEPATIC, BMP ####[address] Neutrophils (Bld) [#/Vol] 2.0 10*3/uL Normal 1.8-7.7 [facility] Comment on above: Performed By: #### L IPASE, CBC, HEPATIC, BMP ####[address] Neutrophils/100 WBC (Bld) 49.0 % Normal . [facility] Comment on above: Performed By: #### L IPASE, CBC, HEPATIC, BMP ####[address] NRBC% 0.2 /100{WBC} Normal 0-0.5 [facility] Comment on above: Performed By: #### L IPASE, CBC, HEPATIC, BMP ####[address] Platelet mean volume (Bld) [Entitic vol] 8.8 fL Normal 6.3-10.7 [facility] Comment on above: Performed By: #### L IPASE, CBC, HEPATIC, BMP ####[address] Platelets (Bld) [#/Vol] 288 10*3/uL Normal 150-450 [facility] Comment on above: Performed By: #### L IPASE, CBC, HEPATIC, BMP ####[facility] RBC (Bld) [#/Vol] 4.07 10*6/uL Normal 3.60-5.00 [facility] Comment on above: Performed By: #### L IPASE, CBC, HEPATIC, BMP ####[facility] WBC (Bld) [#/Vol] 4.2 10*3/uL Normal 3.8-11.6 [facility] Comment on above: Performed By: #### L IPASE, CBC, HEPATIC, BMP ####[place] [address] Creatinine [Mass/volume] in Serum or PlasmaOrdered By: Roseline Mejia on 02-13-2023 Creatinine [Mass/Vol] 0.73 mg/dL 0.60-1.20 [facility] Eosinophils Auto (Bld) [#/Vo l]Ordered By: Roseline Mejia on 02-13-2023 Eosinophils (Bld) [#/Vol] 0.1 10*3/uL 0.0-0.45 [facility] Eosinophils/100 WBC Auto (Bl d)Ordered By: Roseline Mejia on 02-13-2023 Eosinophils/100 WBC (Bld) 1.7 % . [facility] Erythrocyte distribution wid th Auto (RBC) [Ratio]Ordered By: Roseline Mejia on 02-13-2023 Erythrocyte distribution width (RBC) [Ratio] 13.0 % 11.9-15.3 [facility] Globulin Calc (S) [Mass/Vol] Ordered By: Roseline Mejia on 02-13-2023 Globulin (S) [Mass/Vol] 2.9 g/dL [facility] Glucose [Mass/volume] in Ser um or PlasmaOrdered By: Roseline Mejia on 02-13-2023 Glucose [Mass/Vol] 85 mg/dL 70-100 [facility] Comment on above: ADA recommended refe rence rangeRandom Glucose Reference Range is dependent on time and content of last meal. Glucose of more than 200 mg/dL in a nonstressed, ambulatory subject supports the diagnosis of Diabetes Mellitus. HCG ( test) IA.rapi d Ql (U)Ordered By: Roseline Mejia on 02-13-2023 HCG ( test) Ql (U) Negative [facility] HCG,Urineon 02-13-2023 Beta HCG ( test) Ql (U) Negative Normal [facility] Comment on above: Order Comment: Name Collection Type:: Clean-Voided Midstream Result Comment: PERF ORMED BY: [facility] [address] [place] [id number] PATHOLOGIST PACKAGING DESIGNER BAUTISTA BAKER M.D. Performed By: #### U HCG, UA ####[place] [id number] [facility] Hematocrit Auto (Bld) [Volum e fraction]Ordered By: Roseline Mejia on 02-13-2023 Hematocrit (Bld) [Volume fraction] 36.3 % 34.0-46.4 [facility] Hemoglobin [Mass/volume] in BloodOrdered By: Roseline Mejia on 02-13-2023 Hemoglobin (Bld) [Mass/Vol] 12.7 g/dL 11.8-15.4 [facility] Hepatic Panelon 02-13-2023 Albumin [Mass/Vol] 4.0 g/dL Normal 3.5-5.7 [facility] Comment on above: Performed By: #### L IPASE, CBC, HEPATIC, BMP ####[place] [address] [place] [id number] [facility] Albumin/Globulin [Mass ratio] 1.4 {ratio} Normal [facility] Comment on above: Performed By: #### L IPASE, CBC, HEPATIC, BMP ####[place] [address] [place] [id number] [facility] ALP [Catalytic activity/Vol] 55 U/L Normal 34-104 [facility] Comment on above: Performed By: #### L IPASE, CBC, HEPATIC, BMP ####[address] ALT [Catalytic activity/Vol] 11 U/L Normal 7-52 [facility] Comment on above: Performed By: #### L IPASE, CBC, HEPATIC, BMP ####[address] AST [Catalytic activity/Vol] 20 U/L Normal 13-39 [facility] Comment on above: Performed By: #### L IPASE, CBC, HEPATIC, BMP ####[address] Bilirubin [Mass/Vol] 0.5 mg/dL Normal 0.3-1.0 [facility] Comment on above: Performed By: #### L IPASE, CBC, HEPATIC, BMP ####[address] Bilirubin,Indirect 0.4 mg/dL Normal [facility] Comment on above: Performed By: #### L IPASE, CBC, HEPATIC, BMP ####[address] Bilirubin.indirect [Mass/Vol] 0.10 mg/dL Normal 0.03-0.18 [facility] Comment on above: Performed By: #### L IPASE, CBC, HEPATIC, BMP ####[address] Globulin (S) [Mass/Vol] 2.9 g/dL Normal [facility] Comment on above: Performed By: #### L IPASE, CBC, HEPATIC, BMP ####[place] [id number] [facility] Protein [Mass/Vol] 6.9 g/dL Normal 6.4-8.9 [facility] Comment on above: Performed By: #### L IPASE, CBC, HEPATIC, BMP ####[address] Ketones Auto test strip (U) [Mass/Vol]Ordered By: Roseline Mejia on 02-13-2023 Ketones (U) [Mass/Vol] Trace Negative [facility] Leukocytes [#/volume] correc darvin for nucleated erythrocytes in Blood by Automated counOrdered By: Roseline Mejia on 02-13-2023 WBC corrected for nucl RBC Auto (Bld) [#/Vol] 4.2 10*3/uL 3.8-11.6 [facility] Lipaseon 02-13-2023 Lipase [Catalytic activity/Vol] 42.0 U/L Normal 11.0-82.0 [facility] Comment on above: Result Comment: PERF ORMED BY: [facility] [address] [place] [address] PATHOLOGIST PACKAGING DESIGNER BAUTISTA BAKER M.D. Performed By: #### L IPASE, CBC, HEPATIC, BMP ####[facility] [address] [place] [address] [facility] Lipase [Enzymatic activity/v olume] in Serum or PlasmaOrdered By: Roseline Mejia on 02-13-2023 Lipase [Catalytic activity/Vol] 42.0 U/L 11.0-82.0 [facility] Lymphocytes Auto (Bld) [#/Vo l]Ordered By: Roseline Mejia on 02-13-2023 Lymphocytes (Bld) [#/Vol] 1.7 10*3/uL 1.00-4.8 [facility] Lymphocytes/100 WBC Auto (Bl d)Ordered By: Roseline Mejia on 02-13-2023 Lymphocytes/100 WBC (Bld) 40.8 % . [facility] MCH Auto (RBC) [Entitic mass ]Ordered By: Roseline Mejia on 02-13-2023 MCH (RBC) [Entitic mass] 31.1 pg 24.7-34.3 [facility] MCHC Auto (RBC) [Mass/Vol]Or dered By: Roseline Mejia on 02-13-2023 MCHC (RBC) [Mass/Vol] 34.9 g/dL 32.0-35.0 [facility] MCV Auto (RBC) [Entitic vol] Ordered By: Roseline Mejia on 02-13-2023 MCV (RBC) [Entitic vol] 89.2 fL 80-100 [facility] Monocyte distribution width [Entitic volume] in Blood by AutomatedOrdered By: Roseline Mejia on 02-13-2023 Monocyte distribution width Auto (Bld) [Entitic vol] 17.39 % 0.00-20.00 [facility] Monocytes Auto (Bld) [#/Vol] Ordered By: Roseline Mejia on 02-13-2023 Monocytes (Bld) [#/Vol] 0.3 10*3/uL 0.0-0.8 [facility] Monocytes/100 WBC Auto (Bld) Ordered By: Roseline Mejia on 02-13-2023 Monocytes/100 WBC (Bld) 7.3 % . [facility] Neutrophils Auto (Bld) [#/Vo l]Ordered By: Roseline Mejia on 02-13-2023 Neutrophils (Bld) [#/Vol] 2.0 10*3/uL 1.8-7.7 [facility] Neutrophils/100 WBC Auto (Bl d)Ordered By: Roseline Mejia on 02-13-2023 Neutrophils/100 WBC (Bld) 49.0 % . [facility] Nitrite Test strip Ql (U)Ord ered By: Roseline Mejia on 02-13-2023 Nitrite Ql (U) Negative Negative [facility] No Panel InformationOrdered By: Roseline Mejia on 02-13-2023 Estimated GFR (CKD-EPI) > 60.0 mL/Min [facility] Creatinine Clearance (Chem 119.02 [facility] Nucleated erythrocytes [Pres ence] in Blood by Automated countOrdered By: Roseline Mejia on 02-13-2023 Nucleated RBC Auto Ql (Bld) 0.2 /100{WBC} 0-0.5 [facility] Platelet mean volume Auto (B ld) [Entitic vol]Ordered By: Roseline Mejia on 02-13-2023 Platelet mean volume (Bld) [Entitic vol] 8.8 fL 6.3-10.7 [facility] Platelets Auto (Bld) [#/Vol] Ordered By: Roseline Mejia on 02-13-2023 Platelets (Bld) [#/Vol] 288 10*3/uL 150-450 [facility] Potassium [Moles/volume] in Serum or PlasmaOrdered By: Roseline Mejia on 02-13-2023 Potassium [Moles/Vol] 3.7 mmol/L 3.5-5.1 [facility] Protein Auto test strip (U) [Mass/Vol]Ordered By: Roseline Mejia on 02-13-2023 Protein (U) [Mass/Vol] Negative Negative [facility] Protein [Mass/volume] in Ser um or PlasmaOrdered By: Roseline Mejia on 02-13-2023 Protein [Mass/Vol] 6.9 g/dL 6.4-8.9 [facility] RBC Auto (Bld) [#/Vol]Ordere d By: Roseline Mejia on 02-13-2023 RBC (Bld) [#/Vol] 4.07 10*6/uL 3.60-5.00 [facility] Serum or plasma albumin/glob ulin mass ratioOrdered By: Roseline Mejia on 02-13-2023 Albumin/Globulin [Mass ratio] 1.4 {ratio} [facility] Serum or plasma anion gap de terminationOrdered By: Roseline Mejia on 02-13-2023 Anion gap [Moles/Vol] 10.5 mmol/L 6.0-15.0 [facility] Serum or plasma non-glucuron idated bilirubin measurement (mass/volume)Ordered By: Roseline Mejia on 02-13-2023 Bilirubin.indirect [Mass/Vol] 0.4 mg/dL [facility] Sodium [Moles/volume] in Ser um or PlasmaOrdered By: Roseline Mejia on 02-13-2023 Sodium [Moles/Vol] 137 mmol/L 136-145 [facility] Specific gravity Auto test s trip (U) [Rel density]Ordered By: Roseline Mejia on 02-13-2023 Specific gravity (U) [Rel density] 1.017 1.001-1.030 [facility] Urea nitrogen [Mass/volume] in Serum or PlasmaOrdered By: Roseline Mejia on 02-13-2023 Urea nitrogen [Mass/Vol] 10 mg/dL 09-08 [facility] Urinalysison 02-13-2023 Appearance (U) Clear Normal Clear [facility] Comment on above: Order Comment: Name Collection Type:: Clean-Voided Midstream Performed By: #### U HCG, UA ####[address] [address] [facility] Bilirubin,Urine Negative Normal Negative [facility] Comment on above: Order Comment: Name Collection Type:: Clean-Voided Midstream Performed By: #### U HCG, UA ####[address] [address] [facility] Color (U) Yellow Normal Yellow [facility] Comment on above: Order Comment: Name Collection Type:: Clean-Voided Midstream Performed By: #### U HCG, UA ####[address] [address] [facility] Glucose Ql (U) Normal Normal Normal [facility] Comment on above: Order Comment: Name Collection Type:: Clean-Voided Midstream Performed By: #### U HCG, UA ####[address] [address] [facility] Ketones Ql (U) Trace High Negative [facility] Comment on above: Order Comment: Name Collection Type:: Clean-Voided Midstream Performed By: #### U HCG, UA ####[address] [address] [facility] Leukocyte esterase Test strip Ql (U) Negative Normal Negative [facility] Comment on above: Order Comment: Name Collection Type:: Clean-Voided Midstream Performed By: #### U HCG, UA ####[address] [address] [facility] Nitrite,Urine Negative Normal Negative [facility] Comment on above: Order Comment: Name Collection Type:: Clean-Voided Midstream Performed By: #### U HCG, UA ####[address] [address] [facility] Occult Blood,Urine Negative Normal Negative [facility] Comment on above: Order Comment: Name Collection Type:: Clean-Voided Midstream Performed By: #### U HCG, UA ####[place] [id number] [facility] pH (U) 5.5 [pH] Normal 5.0-9.0 [facility] Comment on above: Order Comment: Name Collection Type:: Clean-Voided Midstream Performed By: #### U HCG, UA ####[place] [id number] [facility] Protein,Urine Negative Normal Negative [facility] Comment on above: Order Comment: Name Collection Type:: Clean-Voided Midstream Performed By: #### U HCG, UA ####[address] [address] [facility] Specificy [place],Urine 1.017 Normal 1.001-1.030 [facility] Comment on above: Order Comment: Name Collection Type:: Clean-Voided Midstream Performed By: #### U HCG, UA ####[address] [address] [facility] Urobilinogen,Urine Normal Normal Normal [facility] Comment on above: Order Comment: Name Collection Type:: Clean-Voided Midstream Performed By: #### U HCG, UA ####[place] [id number] [facility] Urine clarity by refractomet ry automatedOrdered By: Roseline Mejia on 02-13-2023 Clarity Refractometry automated (U) Clear Clear [facility] Urine glucose measurement by automated test strip (mass/volume)Ordered By: Roseline Mejia on 02-13-2023 Glucose Auto test strip (U) [Mass/Vol] Normal mg/dL Normal [facility] Urine hemoglobin detection b y automated test stripOrdered By: Roseline Mejia on 02-13-2023 Hemoglobin Auto test strip Ql (U) Negative Negative [facility] Urine leukocyte esterase det ection by automated test stripOrdered By: Roseline Mejia on 02-13-2023 Leukocyte esterase Auto test strip Ql (U) Negative Negative [facility] Urobilinogen Auto test strip (U) [Mass/Vol]Ordered By: Roseline Mejia on 02-13-2023 Urobilinogen (U) [Mass/Vol] Normal mg/dL Normal [facility] WBC Auto (Bld) [#/Vol]Ordere d By: Roseline Mejia on 02-13-2023 WBC (Bld) [#/Vol] 4.2 10*3/uL 3.8-11.6 [facility] pH Auto test strip (U)Ordere d By: Roseline Mejia on 02-13-2023 pH (U) 5.5 [pH] 5.0-9.0 [facility] CBC W Auto Differential pane l (Bld)on 02-12-2023 Basophils (Bld) [#/Vol] 0.02 x10*3/uL Normal 0.00-0.10 [facility] Comment on above: Performed By: #### 5 7021-8 #### OUMAR BRICEÑO ([id number]) [facility] ([facility]) [address] [place] [address] Basophils/100 WBC (Bld) 0.5 % Normal 0.0-2.0 [facility] Comment on above: Performed By: #### 5 7021-8 #### OUMAR BRICEÑO (46837) [facility] ([facility]) [address] [place] [address] Eosinophils (Bld) [#/Vol] 0.06 x10*3/uL Normal 0.00-0.70 [facility] Comment on above: Performed By: #### 5 7021-8 #### OUMAR BRICEÑO (06381) [facility] ([facility]) [address] [place] [address] Eosinophils/100 WBC (Bld) 1.4 % Normal 0.0-6.0 [facility] Comment on above: Performed By: #### 5 7021-8 #### OUMAR BRICEÑO ([id number]) [facility] ([facility]) [address] [place] [address] Erythrocyte distribution width (RBC) [Ratio] 12.1 % Normal 11.5-14.5 [facility] Comment on above: Performed By: #### 5 7021-8 #### OUMAR BRICEÑO (47009) [facility] ([facility]) [address] [place] [address] Hematocrit (Bld) [Volume fraction] 37.9 % Normal 36.0-46.0 [facility] Comment on above: Performed By: #### 5 7021-8 #### OUMAR BRICEÑO (71473) [facility] ([facility]) [id number] [place] [address] Hemoglobin (Bld) [Mass/Vol] 12.8 g/dL Normal 12.0-16.0 [facility] Comment on above: Performed By: #### 5 7021-8 #### OUMAR BRICEÑO (75698) [facility] ([facility]) [id number] [place] [address] Immature granulocytes (Bld) [#/Vol] 0.01 x10*3/uL Normal 0.00-0.70 [facility] Comment on above: Performed By: #### 5 7021-8 #### OUMAR BRICEÑO (18005) [facility] ([facility]) [address] [place] [address] Immature granulocytes/100 WBC (Bld) 0.2 % Normal 0.0-0.9 [facility] Comment on above: Result Comment: Janny ture Granulocyte Count (IG) includes promyelocytes, myelocytes and metamyelocytes but does not include bands. Percent differential counts (%) should be interpreted in the context of the absolute cell counts (cells/UL). Performed By: #### 5 7021-8 #### OUMAR BRICEÑO ([id number]) [facility] ([facility]) [address] [place] [address] Lymphocytes (Bld) [#/Vol] 1.63 x10*3/uL Normal 1.20-4.80 [facility] Comment on above: Performed By: #### 5 7021-8 #### OUMAR BRICEÑO (68551) [facility] ([facility]) [address] [place] [address] Lymphocytes/100 WBC (Bld) 38.9 % Normal 13.0-44.0 [facility] Comment on above: Performed By: #### 5 7021-8 #### OUMAR BRICEÑO (57495) [facility] ([facility]) [address] [place] [address] MCH (RBC) [Entitic mass] 30.5 pg Normal 26.0-34.0 [facility] Comment on above: Performed By: #### 5 7021-8 #### OUMAR BRICEÑO (74685) [facility] ([facility]) [address] [place] [address] MCHC (RBC) [Mass/Vol] 33.8 g/dL Normal 32.0-36.0 [facility] Comment on above: Performed By: #### 5 7021-8 #### OUMAR BRICEÑO (93345) [facility] ([facility] [place]) [address] [place] [address] MCV (RBC) [Entitic vol] 91 fL Normal 80-100 [facility] Comment on above: Performed By: #### 5 7021-8 #### OUMAR BRICEÑO (51684) [facility] ([facility]) [address] [place] [address] Monocytes (Bld) [#/Vol] 0.26 x10*3/uL Normal 0.10-1.00 [facility] Comment on above: Performed By: #### 5 7021-8 #### OUMAR BRICEÑO (66204) [facility] ([facility] [place]) [address] [place] [address] Monocytes/100 WBC (Bld) 6.2 % Normal 2.0-10.0 [facility] Comment on above: Performed By: #### 5 7021-8 #### OUMAR BRICEÑO (81841) [facility] ([facility]) [address] [place] [address] Neutrophils (Bld) [#/Vol] 2.21 x10*3/uL Normal 1.20-7.70 [facility] Comment on above: Result Comment: Perc ent differential counts (%) should be interpreted in the context of the absolute cell counts (cells/uL). Performed By: #### 5 7021-8 #### OUMAR BRICEÑO (18512) [facility] ([facility]) [address] [place] [address] Neutrophils/100 WBC (Bld) 52.8 % Normal 40.0-80.0 [facility] Comment on above: Performed By: #### 5 7021-8 #### OUMAR BRICEÑO (17602) [facility] ([facility] [place]) [address] [place] [address] Nucleated RBC/100 WBC (Bld) [Ratio] 0.0 /100 WBCs Normal 0.0-0.0 [facility] Comment on above: Performed By: #### 5 7021-8 #### OUMAR BRICEÑO (11458) [facility] ([facility] [place]) [address] [place] [address] Platelets (Bld) [#/Vol] 291 x10*3/uL Normal 150-450 [facility] Comment on above: Performed By: #### 5 7021-8 #### OUMAR BRICEÑO (77410) [facility] ([facility]) [address] [place] [address] RBC (Bld) [#/Vol] 4.19 x10*6/uL Normal 4.00-5.20 [facility] Comment on above: Performed By: #### 5 7021-8 #### OUMAR BRICEÑO (41013) [facility] ([facility]) [address] [place] [address] WBC (Bld) [#/Vol] 4.2 x10*3/uL Low 4.4-11.3 [facility] Comment on above: Performed By: #### 5 7021-8 #### OUMAR BRICEÑO ([id number]) [facility] ([facility]) [address] [place] [address] Comprehensive metabolic 2000 panelon 02-12-2023 Albumin BCP dye [Mass/Vol] 4.2 g/dL Normal 3.4-5.0 [facility] Comment on above: Performed By: #### 2 4323-8 #### OUMAR BIRCEÑO ([id number]) [facility] ([facility]) [address] [place] [address] ALP [Catalytic activity/Vol] 55 U/L Normal 33-110 [facility] Comment on above: Performed By: #### 2 4323-8 #### OUMAR BRICEÑO ([id number]) [facility] ([facility]) [address] [place] [address] ALT With P-5'-P [Catalytic activity/Vol] 13 U/L Normal 7-45 [facility] Comment on above: Result Comment: Umm ents treated with Sulfasalazine may generate falsely decreased results for ALT. Performed By: #### 2 4323-8 #### OUMAR BRICEÑO (16704) [facility] ([facility]) [address] [place] [address] Anion gap [Moles/Vol] 13 mmol/L Normal 10-20 [facility] Comment on above: Performed By: #### 2 4323-8 #### OUMAR BRICEÑO (55431) [facility] ([facility]) [address] [place] [address] AST With P-5'-P [Catalytic activity/Vol] 21 U/L Normal 9-39 [facility] Comment on above: Performed By: #### 2 4323-8 #### OUMAR BRICEÑO (42621) [facility] ([facility]) [address] [place] [address] Bilirubin [Mass/Vol] 0.5 mg/dL Normal 0.0-1.2 [facility] Comment on above: Performed By: #### 2 4323-8 #### OUMAR BRICEÑO (15482) [facility] ([facility]) [address] [place] [address] Calcium [Mass/Vol] 8.9 mg/dL Normal 8.6-10.3 [facility] Comment on above: Performed By: #### 2 4323-8 #### OUMAR BRICEÑO (82745) [facility] ([facility]) [address] [place] [address] Chloride [Moles/Vol] 107 mmol/L Normal 98-107 [facility] Comment on above: Performed By: #### 2 4323-8 #### OUMAR BRICEÑO (88626) [facility] ([facility]) [address] [place] [address] CO2 [Moles/Vol] 23 mmol/L Normal 21-32 [facility] Comment on above: Performed By: #### 2 4323-8 #### OUMAR BRICEÑO (67872) [facility] ([facility]) [address] [place] [address] Creatinine [Mass/Vol] 0.73 mg/dL Normal 0.50-1.05 [facility] Comment on above: Performed By: #### 2 4323-8 #### OUMAR BRICEÑO (01959) [facility] ([facility] [place]) [address] [place] [address] GFR/1.73 sq M.predicted MDRD (S/P/Bld) [Vol rate/Area] mL/min/{1.73_m2} Normal >60 [facility] Comment on above: Result Comment: Calc ulations of estimated GFR are performed using the 2020 CKD-EPI Study Refit equation without the race variable for the IDMS-Traceable creatinine methods. https://jasn.asnjournals.org/content/early//ASN.90627269 88 Performed By: #### 2 4323-8 #### OUMAR BRICEÑO (03024) [facility] ([facility]) [address] [facility] [place] [address] Glucose [Mass/Vol] 84 mg/dL Normal 74-99 [facility] Comment on above: Performed By: #### 2 4323-8 #### OUMAR BRICEÑO (07972) [facility] ([facility]) [address] [facility] [place] [address] Potassium [Moles/Vol] 3.6 mmol/L Normal 3.5-5.3 [facility] Comment on above: Performed By: #### 2 4323-8 #### OUMAR BRICEÑO (68753) [facility] ([facility]) [address] [place] [address] Protein [Mass/Vol] 7.0 g/dL Normal 6.4-8.2 [facility] Comment on above: Performed By: #### 2 4323-8 #### OUMAR BRICEÑO (49339) [facility] ([facility]) [address] [facility] [place] [address] Sodium [Moles/Vol] 139 mmol/L Normal 136-145 [facility] Comment on above: Performed By: #### 2 4323-8 #### OUMAR BRICEÑO (08559) [facility] ([facility]) [address] [facility] [place] [address] Urea nitrogen [Mass/Vol] 9 mg/dL Normal 6-23 [facility] Comment on above: Performed By: #### 2 4323-8 #### OUMAR BRICEÑO (24422) [facility] ([facility]) [address] [place] [address] Lactateon 02-12-2023 Lactate [Moles/Vol] 0.6 mmol/L Normal 0.4-2.0 [facility] Comment on above: Order Comment: Venip uncture immediately after or during the administration of Metamizole may lead to falsely low results. Testing should be performed immediately prior to Metamizole dosing. Performed By: #### 2 524-7 #### OUMAR BRICEÑO (13244) [facility] ([facility] [place]) [address] [place] [address] Triacylglycerol lipaseon Lipase [Catalytic activity/Vol] 43 U/L Normal 9-82 [facility] Comment on above: Order Comment: Venip uncture immediately after or during the administration of Metamizole may lead to falsely low results. Testing should be performed immediately prior to Metamizole dosing. Performed By: #### 3 040-3 #### OUMAR BRICEÑO (78276) [facility] ([facility]) [address] [place] [address] Urinalysis complete panel (U )on 02-12-2023 Appearance (U) Clear Normal Clear [facility] Comment on above: Performed By: #### 2 4356-8 #### OUMAR BRICEÑO (82385) [facility] ([facility]) [address] [place] [address] Bilirubin (U) [Mass/Vol] Negative Normal NEGATIVE [facility] Comment on above: Performed By: #### 2 4356-8 #### OUMAR BRICEÑO (69446) [facility] ([facility] [place]) [address] [place] [address] Color (U) Yellow Normal Straw, Yellow [facility] Comment on above: Performed By: #### 2 4356-8 #### OUMAR BRICEÑO (39365) [facility] ([facility]) [address] [place] [address] Glucose Auto test strip (U) [Mass/Vol] Negative Normal NEGATIVE [facility] Comment on above: Performed By: #### 2 4356-8 #### OUMAR BRICEÑO (06959) [facility] ([facility]) [address] [place] [address] Ketones (U) [Mass/Vol] Negative Normal NEGATIVE [facility] Comment on above: Performed By: #### 2 4356-8 #### OUMAR BRICEÑO (46976) [facility] ([facility]) [address] [place] [address] Leukocyte esterase Auto test strip Ql (U) Negative Normal NEGATIVE [facility] Comment on above: Performed By: #### 2 4356-8 #### OUMAR BRICEÑO (87192) [facility] ([facility]) [address] [place] [address] Nitrite Auto test strip Ql (U) Negative Normal NEGATIVE [facility] Comment on above: Performed By: #### 2 4356-8 #### OUMAR BRICEÑO ([id number]) [facility] ([facility]) [address] [place] [address] pH (U) 6.0 [pH] Normal 5.0, 5.5, 6.0, 6.5, 7.0, 7.5, 8.0 [facility] Comment on above: Performed By: #### 2 4356-8 #### OUMAR BRICEÑO (56137) [facility] ([facility]) [address] [place] [address] Protein (U) [Mass/Vol] Negative Normal NEGATIVE [facility] Comment on above: Performed By: #### 2 4356-8 #### OUMAR BRICEÑO (92363) [facility] ([facility]) [address] [place] [address] RBC (U) [#/Vol] Negative Normal NEGATIVE [facility] Comment on above: Performed By: #### 2 4356-8 #### OUMAR BRICEÑO ([id number]) [facility] ([facility] [place]) [address] [place] [address] Specific gravity (U) [Rel density] 1.021 Normal 1.005-1.035 [facility] Comment on above: Performed By: #### 2 4356-8 #### OUMAR BRICEÑO (95498) [facility] ([facility]) [address] [place] [address] Urobilinogen (U) [Mass/Vol] mg/dL Normal <2.0 [facility] Comment on above: Performed By: #### 2 4356-8 #### OUMAR BRICEÑO ([id number]) [facility] ([facility]) [address] [place] [address] CNPNon 02-11-2023 CNPN Normal [facility] HISTORY PHYSICALon HISTORY PHYSICAL HNO ID: [id number] Author: Vic Ramos MD Service: Pain Management [...] in the Electronic Medical Record. No current facility-administer ed medications on file prior to encounter. Current [...] hours as needed for wheezing/shortness of breath. fluticasone-salmete rol (ADVAIR DISKUS) 100-50 mcg/dose inhaler Inhale 1 [...] DATE: February 10, 2023 TIME: 2:00 PM [facility] HISTORY PHYSICAL HNO ID: [id number] Author: Aisha Carter APRN.BETH Service: General Internal Medicine Author Type: Nurse Practitioner Type: HANDP Filed: 02/10/2023 2:04 PM Note Text: Abbey Garcia returns to [facility] for the treatment of [...] as needed for wheezing/shortness of breath.Disp: Rfl: fluticasone-salmete rol (ADVAIR DISKUS) 100-50 mcg/dose inhalerInhale 1 Puff [...] syndrome Plan: Block celiac plexus Aisha Carter APRN.[facility] OPERATIVE NOon 02-10-2023 OPERATIVE NO HNO ID: [id number] Author: Vic Ramos MD Service: Pain Management Author Type: Anesthesiologist Type: Operative Report Filed: 02/10/2023 2:41 PM Note Text: [facility] Pre-Procedure Note Patient Name: Abbey Garcia SUBJECTIVE: Abbey Garcia is a 32 year old female who presents to [facility]. This is her [...] procedure. Vic Ramos MD February 10, 2023 [facility] Post-Procedure Note Patient [...] MD February 10, 2023 day of surgery Normal [facility] Family Medicine Office/Clini c Noteon 02-03-2023 Family Medicine Office/Clinic Note Normal [facility] Comment on above: Result Comment: Elec tronically Signed By: Jaquan Paula\.rene\Date and Time Signed: 02/03/23 15:18 EST CNPNon 01-15-2023 CNPN Normal [facility] VASC US MESENTERIC ARTERY DU PLEX COMPLETEon 01-14-2023 VASC US MESENTERIC [place]ERY [place] [address] Vascular Lab Report VASC US MESENTERIC ARTERY DUPLEX COMPLETE Patient Name: ABBEY GALEASRICHARD Reading Physician: [id number] Jaquelin Boggs MD, RPVI Study Date: 01/14/2023 Ordering Provider: [id number] SHERRY MAGAÑA MRN/PID: [id number] Fellow: Technologist: Aisha Du RVT Date of /Age: 2 1990 / 32 years Technologist 2: Gender: F Admission Status: Outpatient Location Performed: [facility] 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 History of gastric bypass with [...] PSV 116 cm/s Splenic PSV 77 cm/s 63884 Jaquelin Boggs MD, RPVI Final Normal [facility] CBC W Auto Differential pane l (Bld)on 01-13-2023 Basophils (Bld) [#/Vol] 0.04 x10*3/uL Normal 0.00-0.10 [facility] Comment on above: Performed By: #### 5 7021-8 #### MELISA Galvan ([id number]) [facility] () [address] [place] [address] Basophils/100 WBC (Bld) 0.7 % Normal 0.0-2.0 [facility] Comment on above: Performed By: #### 5 7021-8 #### MELISA Galvan (69306) [facility] () [address] [place] [address] Eosinophils (Bld) [#/Vol] 0.13 x10*3/uL Normal 0.00-0.70 [facility] Comment on above: Performed By: #### 5 7021-8 #### MELISA Galvan (49402) [facility] () [address] [place] [address] Eosinophils/100 WBC (Bld) 2.2 % Normal 0.0-6.0 [facility] Comment on above: Performed By: #### 5 7021-8 #### MELISA Galvan (33396) [facility] () [address] [place] [address] Erythrocyte distribution width (RBC) [Ratio] 12.4 % Normal 11.5-14.5 [facility] Comment on above: Performed By: #### 5 7021-8 #### MELISA Galvan (18839) [facility] () [address] [place] [address] Hematocrit (Bld) [Volume fraction] 36.6 % Normal 36.0-46.0 [facility] Comment on above: Performed By: #### 5 7021-8 #### MELISA Galvan (98251) [facility] () [address] [place] [address] Hemoglobin (Bld) [Mass/Vol] 12.6 g/dL Normal 12.0-16.0 [facility] Comment on above: Performed By: #### 5 7021-8 #### MELISA Galvan (42242) [facility] () [address] [place] [address] Immature granulocytes (Bld) [#/Vol] 0.01 x10*3/uL Normal 0.00-0.70 [facility] Comment on above: Performed By: #### 5 7021-8 #### MELISA Galvan (50861) [facility] () [address] [place] [address] Immature granulocytes/100 WBC (Bld) 0.2 % Normal 0.0-0.9 [facility] Comment on above: Result Comment: Janny ture Granulocyte Count (IG) includes promyelocytes, myelocytes and metamyelocytes but does not include bands. Percent differential counts (%) should be interpreted in the context of the absolute cell counts (cells/UL). Performed By: #### 5 7021-8 #### MELISA Galvan (31621) [facility] () [address] [place] [address] Lymphocytes (Bld) [#/Vol] 2.26 x10*3/uL Normal 1.20-4.80 [facility] Comment on above: Performed By: #### 5 7021-8 #### MELISA Galvan (79401) [facility] () [address] [place] [address] Lymphocytes/100 WBC (Bld) 39.0 % Normal 13.0-44.0 [facility] Comment on above: Performed By: #### 5 7021-8 #### MELISA Galvan (02812) [facility] () [address] [place] [address] MCH (RBC) [Entitic mass] 30.7 pg Normal 26.0-34.0 [facility] Comment on above: Performed By: #### 5 7021-8 #### MELISA Galvan (07817) [facility] () [address] [place] [address] MCHC (RBC) [Mass/Vol] 34.4 g/dL Normal 32.0-36.0 [facility] Comment on above: Performed By: #### 5 7021-8 #### MELISA Galvan (68430) [facility] () [address] [place] [address] MCV (RBC) [Entitic vol] 89 fL Normal 80-100 [facility] Comment on above: Performed By: #### 5 7021-8 #### MELISA Galvan (47873) [facility] () [address] [place] [address] Monocytes (Bld) [#/Vol] 0.41 x10*3/uL Normal 0.10-1.00 [facility] Comment on above: Performed By: #### 5 7021-8 #### MELISA Galvan (59669) [facility] () [address] [place] [address] Monocytes/100 WBC (Bld) 7.1 % Normal 2.0-10.0 [facility] Comment on above: Performed By: #### 5 7021-8 #### MELISA Galvan (20915) [facility] () [address] [place] [address] Neutrophils (Bld) [#/Vol] 2.95 x10*3/uL Normal 1.20-7.70 [facility] Comment on above: Result Comment: Perc ent differential counts (%) should be interpreted in the context of the absolute cell counts (cells/uL). Performed By: #### 5 7021-8 #### MELISA Galvan (95564) [facility] () [address] [place] [address] Neutrophils/100 WBC (Bld) 50.8 % Normal 40.0-80.0 [facility] Comment on above: Performed By: #### 5 7021-8 #### MELISA Galvan (11506) [facility] () [address] [place] [address] Nucleated RBC/100 WBC (Bld) [Ratio] 0.0 /100 WBCs Normal 0.0-0.0 [facility] Comment on above: Performed By: #### 5 7021-8 #### MELISA Galvan (00169) [facility] () [address] [place] [address] Platelets (Bld) [#/Vol] 222 x10*3/uL Normal 150-450 [facility] Comment on above: Performed By: #### 5 7021-8 #### MELISA Galvan (62834) [facility] () [address] [place] [address] RBC (Bld) [#/Vol] 4.11 x10*6/uL Normal 4.00-5.20 [facility] Comment on above: Performed By: #### 5 7021-8 #### MELISA Galvan (33048) [facility] () [address] [place] [address] WBC (Bld) [#/Vol] 5.8 x10*3/uL Normal 4.4-11.3 [facility] Comment on above: Performed By: #### 5 7021-8 #### MELISA Galvan (84978) [facility] () [address] [place] [address] Comprehensive metabolic 2000 panelon 01-13-2023 Albumin [Mass/Vol] 4.2 g/dL Normal 3.5-5.0 [facility] Comment on above: Performed By: #### 2 4323-8 #### MELISA Galvan (19317) [facility] () [address] [place] [address] ALP (Bld) [Catalytic activity/Vol] 74 U/L Normal 35-125 [facility] Comment on above: Performed By: #### 2 4323-8 #### MELISA Galvan (61084) [facility] () [address] [place] [address] ALT [Catalytic activity/Vol] 15 U/L Normal 5-40 [facility] Comment on above: Performed By: #### 2 4323-8 #### MELISA Galvan (30460) [facility] () [address] [place] [address] Anion gap [Moles/Vol] 10 mmol/L Normal <=19 [facility] Comment on above: Performed By: #### 2 4323-8 #### MELISA Galvan (89718) [facility] () [address] [place] [address] AST [Catalytic activity/Vol] 26 U/L Normal 5-40 [facility] Comment on above: Performed By: #### 2 4323-8 #### MELISA Galvan (03108) [facility] () [address] [place] [address] Bilirubin [Mass/Vol] 0.5 mg/dL Normal 0.1-1.2 [facility] Comment on above: Performed By: #### 2 4323-8 #### MELISA Galvan (98018) [facility] () [address] [place] [address] Calcium [Mass/Vol] 9.1 mg/dL Normal 8.5-10.4 [facility] Comment on above: Performed By: #### 2 4323-8 #### MELISA Galvan (30411) [facility] () [address] [place] [address] Chloride [Moles/Vol] 103 mmol/L Normal 97-107 [facility] Comment on above: Performed By: #### 2 4323-8 #### MELISA Galvan (87683) [facility] () [address] [place] [address] CO2 [Moles/Vol] 23 mmol/L Low 24-31 [facility] Comment on above: Performed By: #### 2 4323-8 #### MELISA Galvan (94235) [facility] () [address] [place] [address] Creatinine [Mass/Vol] 0.70 mg/dL Normal 0.40-1.60 [facility] Comment on above: Performed By: #### 2 4323-8 #### MELISA Galvan (48447) [facility] () [address] [place] [address] GFR/1.73 sq M.predicted MDRD (S/P/Bld) [Vol rate/Area] mL/min/{1.73_m2} Normal >60 [facility] Comment on above: Result Comment: Calc ulations of estimated GFR are performed using the 2020 CKD-EPI Study Refit equation without the race variable for the IDMS-Traceable creatinine methods. https://jasn.asnjournals.org/content//ASN.44607530 88 Performed By: #### 2 4323-8 #### MELISA Galvan (91998) [facility] () [address] [place] [address] Glucose [Mass/Vol] 89 mg/dL Normal 65-99 [facility] Comment on above: Performed By: #### 2 4323-8 #### MELISA Galvan (00186) [facility] () [address] [place] [address] Potassium [Moles/Vol] 3.5 mmol/L Normal 3.4-5.1 [facility] Comment on above: Performed By: #### 2 4323-8 #### MELISA Galvan (60355) [facility] () [address] [place] [address] Protein [Mass/Vol] 6.9 g/dL Normal 5.9-7.9 [facility] Comment on above: Performed By: #### 2 4323-8 #### MELISA Galvan (85593) [facility] () [address] [place] [address] Sodium [Moles/Vol] 136 mmol/L Normal 133-145 [facility] Comment on above: Performed By: #### 2 4323-8 #### MELISA Galvan (68190) [facility] () [address] [place] [address] Urea nitrogen [Mass/Vol] 13 mg/dL Normal 8-25 [facility] Comment on above: Performed By: #### 2 4323-8 #### MELISA Galvan (08532) [facility] () [address] [place] [address] HCG ( test) IA.rapi d Ql (U)on 01-13-2023 HCG ( test) Ql (U) Negative Normal NEGATIVE [facility] Comment on above: Performed By: #### 8 0384-1 #### MELISA Galvan (49413) [facility] () [address] [place] [address] Urinalysis complete panel (U )on 01-13-2023 Appearance (U) Clear Normal Clear [facility] Comment on above: Performed By: #### 2 4356-8 #### MELISA Galvan () [facility] () [address] [place] [address] Bilirubin (U) [Mass/Vol] Negative Normal NEGATIVE [facility] Comment on above: Performed By: #### 2 4356-8 #### MELISA Galvan () [facility] () [address] [place] [address] Color (U) Light-Yellow Normal Light-Yellow, Yellow, Dark-Yellow [facility] Comment on above: Performed By: #### 2 4356-8 #### MELISA Galvan (14529) [facility] () [address] [place] [address] Glucose Auto test strip (U) [Mass/Vol] Normal Normal Normal [facility] Comment on above: Performed By: #### 2 4356-8 #### MELISA Galvan (15717) [facility] () [address] [place] [address] Ketones (U) [Mass/Vol] Negative Normal NEGATIVE [facility] Comment on above: Performed By: #### 2 4356-8 #### MELISA Galvan (05730) [facility] () [address] [place] [address] Leukocyte esterase Auto test strip Ql (U) Negative Normal NEGATIVE [facility] Comment on above: Performed By: #### 2 4356-8 #### MELISA Galvan (25233) [facility] () [address] [place] [address] Nitrite Auto test strip Ql (U) Negative Normal NEGATIVE [facility] Comment on above: Performed By: #### 2 4356-8 #### MELISA Galvan (09770) [facility] () [address] [place] [address] pH (U) 7.0 [pH] Normal 5.0, 5.5, 6.0, 6.5, 7.0, 7.5, 8.0 [facility] Comment on above: Performed By: #### 2 4356-8 #### MELISA Galvan (62956) [facility] () [address] [place] [address] Protein (U) [Mass/Vol] Negative Normal NEGATIVE, 10 (TRACE), 20 (TRACE) [facility] Comment on above: Performed By: #### 2 4356-8 #### MELISA Galvan (58846) [facility] () [address] [place] [address] RBC (U) [#/Vol] Negative Normal NEGATIVE [facility] Comment on above: Performed By: #### 2 4356-8 #### MELISA Galvan (98679) [facility] () [address] [place] [address] Specific gravity (U) [Rel density] 1.010 Normal 1.005-1.035 [facility] Comment on above: Performed By: #### 2 4356-8 #### MELISA Galvan (06820) [facility] () [address] [place] [address] Urobilinogen (U) [Mass/Vol] Normal Normal Normal [facility] Comment on above: Performed By: #### 2 4356-8 #### MELISA Galvan (68792) [facility] () [address] [place] [address] CNPNon 01-11-2023 CNPN Normal [facility] CNPNon 01-06-2023 CNPN Normal [facility] Auto Diffon 12-31-2022 Basophils/100 WBC (Bld) 0.6 % Normal 0.0-2.0 [facility] Comment on above: Order Comment: Order Added by Discern Expert. Performed By: #### 2 155670, 02904108, 4901400, 3316816, 61035877, 3522714, 9837091 ####[facility] [address] [place] [address] Basophils/Leukocyte s Auto (Bld) [Pure # fraction] 0.0 E9/L Normal 0.0-0.2 [facility] Comment on above: Order Comment: Order Added by Discern Expert. Performed By: #### 2 785421, 84938412, 5959501, 9189642, 64920551, 4958148, 0346477 ####[address] [address] Eosinophils/100 WBC (Bld) 0.4 % Normal 0.0-8.0 [facility] Comment on above: Order Comment: Order Added by Discern Expert. Performed By: #### 2 654782, 89454625, 1156282, 9250045, 49800415, 5841724, 6381617 ####[address] [address] Eosinophils/Leukocy stevan Auto (Bld) [Pure # fraction] 0.0 E9/L Normal 0.0-0.5 [facility] Comment on above: Order Comment: Order Added by Discern Expert. Performed By: #### 2 872760, 94149372, 7782384, 1210827, 75449737, 3429575, 2009500 ####[address] [place] [address] Lymphocytes/100 WBC (Bld) 42.3 % Normal 14.0-50.0 [facility] Comment on above: Order Comment: Order Added by Discern Expert. Performed By: #### 2 390485, 06547644, 1898849, 4763857, 75247261, 9207236, 5212111 ####[address] [address] Lymphocytes/Leukocy stevan Auto (Bld) [Pure # fraction] 1.9 E9/L Normal 1.0-4.0 [facility] Comment on above: Order Comment: Order Added by Discern Expert. Performed By: #### 2 180841, 40182959, 8104341, 4924744, 75454380, 1855100, 5046396 ####[facility] [address] [place] [address] Monocytes/100 WBC (Bld) 7.9 % Normal 4.0-14.0 [facility] Comment on above: Order Comment: Order Added by Discern Expert. Performed By: #### 2 365917, 25636264, 4820756, 5931580, 20388338, 9177326, 1748209 ####[address] [place] [address] Monocytes/Leukocyte s Auto (Bld) [Pure # fraction] 0.4 E9/L Normal 0.2-1.0 [facility] Comment on above: Order Comment: Order Added by Discern Expert. Performed By: #### 2 113429, 04691661, 3586985, 0282009, 02115333, 7051426, 5737682 ####[address] [address] Neutrophils/100 WBC (Bld) 48.8 % Normal 36.0-75.0 [facility] Comment on above: Order Comment: Order Added by Discern Expert. Performed By: #### 2 335381, 29141140, 3412892, 7132286, 04572534, 0531975, 8293350 ####[facility] [address] [place] [address] Neutrophils/Leukocy stevan Auto (Bld) [Pure # fraction] 2.2 E9/L Normal 2.0-7.5 [facility] Comment on above: Order Comment: Order Added by Discern Expert. Performed By: #### 2 265514, 38134393, 4553553, 1722424, 89403275, 7598399, 0967407 ####[address] [place] [address] B hCG Qualon 11-16-2023 Beta HCG ( test) Ql Negative Normal [facility] Comment on above: Performed By: #### 2 385120, 44913986, 6274667, 5681390, 93445665, 5911667, 7268222 ####[facility] [address] [place] [address] BMPon 12-31-2022 Creatinine [Mass/Vol] 0.8 mg/dL Normal 0.5-1.3 [facility] Comment on above: Performed By: #### 2 487406, 26759200, 5777452, 3960399, 34744179, 9422363, 9981506 ####[facility] [address] [place] [address] Urea nitrogen [Mass/Vol] 16 mg/dL Normal 5-21 [facility] Comment on above: Performed By: #### 2 125419, 99820282, 7641359, 5209368, 94011480, 1128774, 6234111 ####[facility] [address] [place] [address] Urea nitrogen/Creatinine [Mass ratio] 20 No Units Normal 10-20 [facility] Comment on above: Performed By: #### 2 683573, 76300881, 8406288, 4465980, 48871626, 6735622, 0096937 ####[facility] [address] [place] [address] Anion gap [Moles/Vol] 10 mmol/L Normal -16 [facility] Comment on above: Performed By: #### 2 101060, 74264807, 4496511, 4269555, 63894266, 6707453, 9035478 ####[facility] [address] [place] [address] Calcium [Mass/Vol] 8.6 mg/dL Low 8.9-11.1 [facility] Comment on above: Performed By: #### 2 858088, 91704380, 4449339, 4459754, 63706923, 3237217, 5888888 ####[facility] [address] [place] [address] Chloride [Moles/Vol] 110 mmol/L Normal 101-111 [facility] Comment on above: Performed By: #### 2 577579, 49554171, 3736969, 0428146, 52655660, 7006342, 6082224 ####[facility] [address] [place] [address] CO2 [Moles/Vol] 20 mmol/L Low 21-31 [facility] Comment on above: Performed By: #### 2 039225, 90552295, 5359719, 6587636, 94020274, 6448560, 9539178 ####[facility] [address] [place] [address] Glucose [Mass/Vol] 87 mg/dL Normal 55-199 [facility] Comment on above: Result Comment: If t his glucose result represents a fasting glucose, interpretation should refer to the following reference range: 55-99 mg/dL Performed By: #### 2 474774, 66337261, 9912114, 0346339, 39783565, 5196681, 9301198 ####[facility] [address] [place] [address] Potassium [Moles/Vol] 3.2 mmol/L Low 3.5-5.3 [facility] Comment on above: Performed By: #### 2 005960, 57321826, 8799512, 7572021, 03732379, 8773897, 4201699 ####[facility] [address] [place] [address] Sodium [Moles/Vol] 137 mmol/L Normal 135-145 [facility] Comment on above: Performed By: #### 2 108523, 81342982, 5569471, 5706222, 06515248, 8015855, 6352239 ####[facility] [address] [place] [address] CBC w/ Auto Diffon 3 Erythrocyte distribution width (RBC) [Ratio] 13.9 % Normal 10.9-14.2 [facility] Comment on above: Performed By: #### 2 043708, 17858244, 7962778, 5314130, 10948847, 3030485, 1553088 ####[facility] [address] [place] [address] Hematocrit (Bld) [Volume fraction] 35.5 % Normal 34.0-46.0 [facility] Comment on above: Performed By: #### 2 880599, 09192104, 6006880, 8967330, 40585338, 5145778, 7719311 ####[facility] [address] [place] [address] Hemoglobin (Bld) [Mass/Vol] 12.2 g/dL Normal 12.0-16.0 [facility] Comment on above: Performed By: #### 2 671067, 40613139, 5516815, 0301236, 36547772, 5399959, 7058232 ####[address] [address] MCH (RBC) [Entitic mass] 30.8 pg Normal 27.0-34.0 [facility] Comment on above: Performed By: #### 2 296678, 81349909, 2955712, 5130223, 07195179, 1113035, 8940773 ####[address] [address] MCHC (RBC) [Mass/Vol] 34.4 g/dL Normal 31.4-36.0 [facility] Comment on above: Performed By: #### 2 575873, 32626518, 0597541, 9669637, 96417372, 7349767, 2148173 ####[address] [address] MCV (RBC) [Entitic vol] 89.5 fL Normal 80.0-100.0 [facility] Comment on above: Performed By: #### 2 798346, 51295910, 8162130, 9289549, 68028784, 2153118, 8395358 ####[facility] [address] [place] [address] Platelet mean volume (Bld) [Entitic vol] 9.5 fL Normal 6.4-10.8 [facility] Comment on above: Performed By: #### 2 926931, 68391097, 3187582, 4471416, 52944860, 3022212, 9918448 ####[facility] [address] [place] [address] Platelets (Bld) [#/Vol] 177.0 E9/L Normal 150.0-500.0 [facility] Comment on above: Performed By: #### 2 508891, 88333656, 6437760, 7098663, 27433523, 5777675, 6618242 ####[facility] [address] [place] [address] RBC (Bld) [#/Vol] 4.0 E12/L Low 4.3-5.9 [facility] Comment on above: Performed By: #### 2 644471, 29915916, 7166055, 1513602, 40209039, 2230347, 2539663 ####[facility] [address] [place] [address] WBC corrected for nucl RBC Auto (Bld) [#/Vol] 4.4 E9/L Normal 4.0-11.0 [facility] Comment on above: Performed By: #### 2 282601, 45623161, 3956514, 5376577, 33943779, 9487226, 3318297 ####[facility] [address] [place] [address] CHEMISTRYOrdered By: SYSTEM SYSTEM on 12-31-2022 Albumin [Mass/Vol] 3.9 g/dL Normal 3.3 - 5.0 gm/dL [facility] Albumin/Globulin [Mass ratio] 1.3 {ratio} Normal 1.1 - 2.2 [facility] ALP [Catalytic activity/Vol] 51 [iU]/d Normal 21 - 98 Int._Unit/L [facility] ALT No additional P-5'-P [Catalytic activity/Vol] 21 [iU]/d Normal 6 - 46 Int._Unit/L [facility] Anion gap [Moles/Vol] 10 mmol/L Normal 6 - 16 mEq/L [facility] AST [Catalytic activity/Vol] 32 [iU]/d Normal 5 - 43 Int._Unit/L [facility] Bilirubin [Mass/Vol] 0.5 mg/dL Normal 0.0 - 1.1 mg/dL [facility] Bilirubin.direct [Mass/Vol] 0.1 mg/dL Normal 0.1 - 0.4 mg/dL [facility] Bilirubin.indirect [Mass or moles/Vol] 0.4 mg/dL Normal 0.1 - 0.9 mg/dL [facility] Calcium [Mass/Vol] 8.6 mg/dL Low 8.9 - 11.1 mg/dL [facility] Chloride [Moles/Vol] 110 mmol/L Normal 101 - 111 mmol/L [facility] CO2 [Moles/Vol] 20 mmol/L Low 21 - 31 mmol/L [facility] Creatinine [Mass/Vol] 0.8 mg/dL Normal 0.5 - 1.3 mg/dL [facility] GFR/1.73 sq M.predicted among non-blacks MDRD (S/P/Bld) [Vol rate/Area] 100 mL/min/1.73 m2 Normal >=59mL/min/1.73 m2 [facility] [place] [facility] Comment on above: Interpretive Data: C hronic kidney disease could be indicated at eGFR's of less than 60 mL/min/1.73m2. Kidney failure is indicated at less than 15 mL/min/1.73m2. Globulin (S) [Mass/Vol] 2.9 g/dL Normal 1.4 - 4.0 gm/dL [facility] Glucose [Mass/Vol] 87 mg/dL Normal 55 [...] 6.8 g/dL Normal 6.0 - 7.8 gm/dL [facility] Remisol Sodium [Moles/Vol] 137 mmol/L Normal 135 - 145 mmol/L [facility] Urea nitrogen [Mass/Vol] 16 mg/dL Normal 5 - 21 mg/dL [facility] Urea nitrogen/Creatinine [Mass ratio] 20 mg/mg Normal 10 - 20 [facility] Consent for Treatmenton 12-16 Consent for Treatment [id number] 34#[id number] Normal [facility] Discharge Instructionson Discharge Instructions [id number] 93#1.00TIFF Normal [facility] ED Clinical Summaryon 2022 ED Clinical Summary Normal [facility] ED Note-Physicianon 01-01-20 ED Note-Physician Normal [facility] Comment on above: Result Comment: Elec tronically Signed By: Lonnie Rios PA-C\.br\Date and Time Signed: 12/31/22 19:15 EST\.br\Electronically Co-Signed By: Mateusz Garcia DO\.br\Date and Time Co-Signed: 12/31/22 19:25 EST ED Patient Education Noteon 12-31-2022 ED Patient Education Note Normal [facility] ED Patient Summaryon 023 ED Patient Summary Normal [facility] HEMATOLOGYOrdered By: SYSTEM SYSTEM on 12-31-2022 Basophils/100 WBC (Bld) 0.6 % Normal 0.0 - 2.0 % [facility] HemeAutoSS Basophils/Leukocyte s Auto (Bld) [Pure # fraction] 0.0 E9/L Normal 0.0 - 0.2 E9/L [facility] HemeAutoSS Eosinophils/100 WBC (Bld) 0.4 % Normal 0.0 - 8.0 % [facility] HemeAutoSS Eosinophils/Leukocy stevan Auto (Bld) [Pure # fraction] 0.0 E9/L Normal 0.0 - 0.5 E9/L [facility] Lymphocytes/100 WBC (Bld) 42.3 % Normal 14.0 - 50.0 % [facility] Lymphocytes/Leukocy stevan Auto (Bld) [Pure # fraction] 1.9 E9/L Normal 1.0 - 4.0 E9/L [facility] Monocytes/100 WBC (Bld) 7.9 % Normal 4.0 - 14.0 % [facility] Monocytes/Leukocyte s Auto (Bld) [Pure # fraction] 0.4 E9/L Normal 0.2 - 1.0 E9/L [facility] Neutrophils/100 WBC (Bld) 48.8 % Normal 36.0 - 75.0 % [facility] Neutrophils/Leukocy stevan Auto (Bld) [Pure # fraction] 2.2 E9/L Normal 2.0 - 7.5 E9/L [facility] HEMATOLOGYOrdered By: Shannon osei on 12-31-2022 Erythrocyte distribution width (RBC) [Ratio] 13.9 % Normal 10.9 - 14.2 % [facility] Hematocrit (Bld) [Volume fraction] 35.5 % Normal 34.0 - 46.0 % [facility] Hemoglobin (Bld) [Mass/Vol] 12.2 g/dL Normal 12.0 - 16.0 gm/dL [facility] MCH (RBC) [Entitic mass] 30.8 pg Normal 27.0 - 34.0 pg [facility] MCHC (RBC) [Mass/Vol] 34.4 g/dL Normal 31.4 - 36.0 gm/dL [facility] MCV (RBC) [Entitic vol] 89.5 fL Normal 80.0 - 100.0 fL [facility] Platelet mean volume (Bld) [Entitic vol] 9.5 fL Normal 6.4 - 10.8 fL [facility] Platelets (Bld) [#/Vol] 177.0 E9/L Normal 150.0 - 500.0 E9/L [facility] RBC (Bld) [#/Vol] 4.0 E12/L Low 4.3 - 5.9 E12/L [facility] WBC corrected for nucl RBC Auto (Bld) [#/Vol] 4.4 E9/L Normal 4.0 - 11.0 E9/L [facility] [place] [facility] Hep Func Panelon 12-31-2022 Albumin [Mass/Vol] 3.9 g/dL Normal 3.3-5.0 [facility] Comment on above: Performed By: #### 2 367393, 86877677, 0995035, 9172997, 79534915, 4086164, 9338268 ####[facility] [address] [place] [address] Albumin/Globulin (S) [Mass conc ratio] 1.3 Normal 1.1-2.2 [facility] Comment on above: Performed By: #### 2 848303, 42026315, 6549766, 6063958, 20265276, 9883038, 8572710 ####[facility] [address] [place] [address] ALP [Catalytic activity/Vol] 51 Int._Unit/L Normal 21-98 [facility] Comment on above: Performed By: #### 2 504529, 76341618, 7967454, 0482916, 28971875, 1660993, 3949936 ####[facility] [address] [place] [address] ALT No additional P-5'-P [Catalytic activity/Vol] 21 Int._Unit/L Normal 6-46 [facility] Comment on above: Performed By: #### 2 799452, 33684382, 2992767, 8894139, 15001743, 7766528, 7872819 ####[facility] [address] [place] [address] AST [Catalytic activity/Vol] 32 Int._Unit/L Normal 5-43 [facility] Comment on above: Performed By: #### 2 908714, 86735644, 2388222, 1387067, 87104436, 3474331, 4424733 ####[facility] [address] [place] [address] Bilirubin [Mass/Vol] 0.5 mg/dL Normal 0.0-1.1 [facility] Comment on above: Performed By: #### 2 856676, 84714609, 0442685, 0018153, 62023642, 8866169, 7407578 ####[facility] [address] [place] [address] Bilirubin.direct [Mass/Vol] 0.1 mg/dL Normal 0.1-0.4 [facility] Comment on above: Performed By: #### 2 872208, 19705585, 5739210, 3521278, 51148872, 6476293, 5595857 ####[address] [place] [address] Bilirubin.indirect [Mass or moles/Vol] 0.4 mg/dL Normal 0.1-0.9 [facility] Comment on above: Performed By: #### 2 959761, 31304215, 6128301, 4279173, 25965507, 3857536, 5292831 ####[address] [address] Globulin (S) [Mass/Vol] 2.9 g/dL Normal 1.4-4.0 [facility] Comment on above: Performed By: #### 2 637009, 87405871, 0261541, 0467032, 35356787, 7795714, 4502855 ####[address] [place] [address] Protein [Mass/Vol] 6.8 g/dL Normal 6.0-7.8 [facility] Comment on above: Performed By: #### 2 957548, 86492431, 9296759, 6979356, 78019255, 8516522, 9326617 ####[address] [place] [address] Lipase Levelon 12-31-2022 Lipase [Catalytic activity/Vol] 49 U/L Normal 13-58 [facility] Comment on above: Performed By: #### 2 731677, 67057785, 1481654, 6249787, 26697938, 7298006, 3315780 ####[facility] [address] [place] [address] SEROLOGYOrdered By: Stacia Blair on 12-31-2022 Beta HCG ( test) Ql Negative (12/31/22 1:16 PM) Normal [facility] [place] Man Sero UA With Cult Reflexon 2022 Bilirubin Ql (U) Negative Normal Negative [facility] Comment on above: Performed By: #### 1 9342400 ####[facility] [address] [place] [address] Clarity (U) CLEAR Normal Clear [facility] Comment on above: Performed By: #### 1 0490780 ####[address] [address] Color (U) YELLOW Normal Yellow [facility] Comment on above: Performed By: #### 1 7587071 ####[address] [address] Epithelial cells.squamous LM.HPF (Urine sed) [#/Area] 0-2 Normal 0-2 [facility] Comment on above: Performed By: #### 1 8315438 ####[address] [address] Glucose Test strip (U) [Mass/Vol] Negative Normal Negative [facility] Comment on above: Performed By: #### 1 1170420 ####[address] [address] Hemoglobin Ql (U) Negative Normal Negative [facility] Comment on above: Performed By: #### 1 7288641 ####[address] [address] Ketones (U) [Mass/Vol] Negative Normal Negative [facility] Comment on above: Performed By: #### 1 3749801 ####[address] [address] Sauget.plasma/Lith ium.RBC (Bld) [Mass ratio] 0-3 Normal 0-3 [facility] Comment on above: Performed By: #### 1 5334903 ####[address] [place] [address] Mucus Ql (Urine sed) TRACE Normal [facility] Comment on above: Performed By: #### 1 7301019 ####[address] [address] Nitrite Ql (U) Negative Normal Negative [facility] Comment on above: Performed By: #### 1 9344006 ####[address] [address] pH (U) 6.0 [pH] Invalid Interpretation Code 5.0-9.0 [facility] Comment on above: Performed By: #### 1 2484815 ####[address] [address] Protein (U) [Mass/Vol] Negative Normal Negative [facility] Comment on above: Performed By: #### 1 8234880 ####[address] [address] Specific gravity (U) [Rel density] 1.015 Invalid Interpretation Code 1.005-1.030 [facility] Comment on above: Performed By: #### 1 7827004 ####[address] [address] Type of Urine collection method Clean Catch Normal [facility] Comment on above: Performed By: #### 1 2190769 ####[address] [address] Urobilinogen Qn (U) 0.2 {Munir'U}/dL Normal 0.0-1.0 [facility] Comment on above: Performed By: #### 1 7386622 ####[address] [address] WBC Auto Ql (U) Negative Normal Negative [facility] Comment on above: Performed By: #### 1 7876689 ####[address] [address] WBC LM.HPF (Urine sed) [#/Area] 0-5 Normal 0-5 [facility] Comment on above: Performed By: #### 1 6508309 ####[facility] [address] [place] [address] URINALYSISOrdered By: Marlene Blair on 12-31-2022 Bilirubin Ql (U) Negative (12/31/22 1:16 PM) Normal Negative [facility] UA Auto SS Clarity (U) Clear (12/31/22 1:16 PM) Normal Clear [facility] UA Auto SS Color (U) Yellow (12/31/22 1:16 PM) Normal Yellow [facility] UA Auto SS Epithelial cells.squamous LM.HPF (Urine sed) [#/Area] 0-2 /HPF Normal 0-2/HPF [facility] UA Auto SS Glucose Test strip (U) [Mass/Vol] Negative (12/31/22 1:16 PM) Normal Negative [facility] UA Auto SS Hemoglobin Ql (U) Negative (12/31/22 1:16 PM) Normal Negative [facility] UA Auto SS Ketones (U) [Mass/Vol] Negative (12/31/22 1:16 PM) Normal Negative [facility] UA Auto SS Sauget.plasma/Lith ium.RBC (Bld) [Mass ratio] 0-3 /HPF Normal 0-3/HPF [...] PM) Invalid Interpretation Code 1.005 - 1.030 [facility] UA Auto SS UA Spec Desc Clean Catch (12/31/22 1:16 PM) Normal [facility] UA Auto SS Urobilinogen Qn (U) 0.8546806 {Munir'U}/dL Normal 0.0 - 1.0 EU/dL [facility] UA Auto SS WBC Auto Ql (U) Negative (12/31/22 1:16 PM) Normal Negative [facility] UA Auto SS WBC LM.HPF (Urine sed) [#/Area] 0-5 /HPF Normal 0-5/HPF [facility] [place] UA Auto SS eGFRon 12-31-2022 GFR/1.73 sq M.predicted among non-blacks MDRD (S/P/Bld) [Vol rate/Area] 100 mL/min/1.73 m2 Normal >=59 [facility] Comment on above: Order Comment: Order added by Discern Expert. Result Comment: Director Foundation alejandra kidney disease could be indicated at eGFR's of less than 60 mL/min/1.73m2. Kidney failure is indicated at less than 15 mL/min/1.73m2. Performed By: #### 2 823931, 73598374, 6552389, 6733370, 48333061, 0614315, 6005256 ####[facility] [address] [place] [address] Family Medicine Office/Clini c Noteon 12-29-2022 Family Medicine Office/Clinic Note Normal [facility] Comment on above: Result Comment: Elec tronically Signed By: Jaquan Paula\.br\Date and Time Signed: 12/29/22 15:35 EST Provider Letteron 12-29-2022 Provider Letter Normal [facility] CNCOon 12-28-2022 CNCO Letter Text Normal [facility] CNPNon 12-28-2022 CNPN Normal [facility] CNCOon 12-25-2022 CNCO Letter Text Normal [facility] CNPNon 12-23-2022 CNPN Normal [facility] CBC With Platelet and Differ entialon 12-14-2022 Basophils (Bld) [#/Vol] 0.0 10*3/uL Normal 0.0-0.2 [facility] Comment on above: Performed By: #### L IPAS #### [facility] [address] [place] [address] Basophils/100 WBC (Bld) 0.9 % Normal [facility] Comment on above: Performed By: #### L IPAS #### [facility] [address] [place] [address] Eosinophils (Bld) [#/Vol] 0.2 10*3/uL Normal 0.0-0.7 [facility] Comment on above: Performed By: #### L IPAS #### [facility] [address] [place] [address] Eosinophils/100 WBC (Bld) 4.0 % Normal [facility] Comment on above: Performed By: #### L IPAS #### [facility] [address] [place] [address] Erythrocyte distribution width (RBC) [Ratio] 13.2 % Normal 11.5-14.5 [facility] Comment on above: Performed By: #### L IPAS #### [facility] [address] [place] [address] Hematocrit (Bld) [Volume fraction] 36.5 % Low 37.0-47.0 [facility] Comment on above: Performed By: #### L IPAS #### [facility] [address] [place] [address] Hemoglobin (Bld) [Mass/Vol] 12.4 g/dL Normal 12.0-16.0 [facility] Comment on above: Performed By: #### L IPAS #### [facility] [address] [place] [address] Lymphocytes (Bld) [#/Vol] 1.7 10*3/uL Normal 1.0-4.8 [facility] Comment on above: Performed By: #### L IPAS #### [facility] [address] [place] [address] Lymphocytes/100 WBC (Bld) 40.7 % Normal [facility] Comment on above: Performed By: #### L IPAS #### [facility] [address] [place] [address] MCH (RBC) [Entitic mass] 31.0 pg Normal 27.0-31.3 [facility] Comment on above: Performed By: #### L IPAS #### [facility] [address] [place] [address] MCHC 34.0 % Normal 33.0-37.0 [facility] Comment on above: Performed By: #### L IPAS #### [facility] [address] [place] [address] MCV (RBC) [Entitic vol] 91.3 fL Normal 79.4-94.8 [facility] Comment on above: Performed By: #### L IPAS #### [facility] [address] [place] [address] Monocytes (Bld) [#/Vol] 0.3 10*3/uL Normal 0.2-0.8 [facility] Comment on above: Performed By: #### L IPAS #### [facility] [address] [place] [address] Monocytes/100 WBC (Bld) 7.7 % Normal [facility] Comment on above: Performed By: #### L IPAS #### [facility] [address] [place] [address] Neutrophils (Bld) [#/Vol] 2.0 10*3/uL Normal 1.4-6.5 [facility] Comment on above: Performed By: #### L IPAS #### [facility] [address] [place] [address] Neutrophils/100 WBC (Bld) 46.5 % Normal [facility] Comment on above: Performed By: #### L IPAS #### [facility] [address] [place] [address] Platelets (Bld) [#/Vol] 187 10*3/uL Normal 130-400 [facility] Comment on above: Performed By: #### L IPAS #### [facility] [address] [place] [address] RBC (Bld) [#/Vol] 4.00 10*6/uL Low 4.20-5.40 [facility] Comment on above: Performed By: #### L IPAS #### [facility] [address] [place] [address] WBC (Bld) [#/Vol] 4.3 10*3/uL Low 4.8-10.8 [facility] Comment on above: Performed By: #### L IPAS #### [facility] [address] [place] [address] CTA ABDOMEN PELVIS W WO CONT RASTon [...] not a suspected or confirmed emergency medical condition->Emergenc y Medical Condition (MA) What reading provider will [...] Addison Lorenzo MD 12/14/22 Final result Normal [facility] Comprehensive Metabolic Pane nestor 12-14-2022 Albumin [Mass/Vol] 4.0 g/dL Normal 3.5-4.6 [facility] Comment on above: Performed By: #### L IPAS #### [facility] [address] [place] [address] ALP [Catalytic activity/Vol] 70 U/L Normal 40-130 [facility] Comment on above: Performed By: #### L IPAS #### [facility] [address] [place] [address] ALT [Catalytic activity/Vol] 20 U/L Normal 0-33 [facility] Comment on above: Performed By: #### L IPAS #### [facility] [address] [place] [address] Anion gap [Moles/Vol] 16 mmol/L Critically high 9-15 [facility] Comment on above: Performed By: #### L IPAS #### [facility] [address] [place] [address] AST [Catalytic activity/Vol] 33 U/L Normal 0-35 [facility] Comment on above: Performed By: #### L IPAS #### [facility] [address] [place] [address] Bilirubin [Mass/Vol] 0.3 mg/dL Normal 0.2-0.7 [facility] Comment on above: Performed By: #### L IPAS #### [facility] [address] [place] [address] Calcium [Mass/Vol] 8.8 mg/dL Normal 8.5-9.9 [facility] Comment on above: Performed By: #### L IPAS #### [facility] [address] [place] [address] Chloride [Moles/Vol] 107 mmol/L Normal 95-107 [facility] Comment on above: Performed By: #### L IPAS #### [facility] [address] [place] [address] CO2 [Moles/Vol] 20 mmol/L Normal 20-31 [facility] Comment on above: Performed By: #### L IPAS #### [facility] [address] [place] [address] Creatinine [Mass/Vol] 0.75 mg/dL Normal 0.50-0.90 [facility] Comment on above: Performed By: #### L IPAS #### [facility] [address] [place] [address] GFR >60.0 Normal >60 [facility] Comment on above: Result Comment: Adán atric [...] secretion. Performed By: #### L IPAS #### [facility] [address] [place] [address] Globulin (S) [Mass/Vol] 2.5 g/dL Normal 2.3-3.5 [facility] Comment on above: Performed By: #### L IPAS #### [facility] [address] [place] [address] Glucose [Mass/Vol] 88 mg/dL Normal 70-99 [facility] Comment on above: Performed By: #### L IPAS #### [facility] [address] [place] [address] Potassium [Moles/Vol] 3.8 mmol/L Normal 3.4-4.9 [facility] Comment on above: Performed By: #### L IPAS #### [facility] [address] [place] [address] Protein [Mass/Vol] 6.5 g/dL Normal 6.3-8.0 [facility] Comment on above: Performed By: #### L IPAS #### [facility] [address] [place] [address] Sodium [Moles/Vol] 143 mmol/L Normal 135-144 [facility] Comment on above: Performed By: #### L IPAS #### [facility] [address] [place] [address] Urea nitrogen [Mass/Vol] 11 mg/dL Normal 6-20 [facility] Comment on above: Performed By: #### L IPAS #### [facility] [address] [place] [address] Lipaseon 12-14-2022 Lipase [Catalytic activity/Vol] 39 U/L Normal 12-95 [facility] Comment on above: Performed By: #### L IPAS #### [facility] [address] [place] [address] POCT Venouson 12-14-2022 Creatinine [Mass/Vol] 0.8 mg/dL Normal 0.6-1.2 [facility] Comment on above: Performed By: #### P GLU #### [facility] [address] [place] [address] GFR >60 Normal >60 [facility] Comment on above: Result Comment: Pedi atric [...] secretion. Performed By: #### P GLU #### [facility] [address] [place] [address] POC Performed on SEE BELOW [facility] Comment on above: Result Comment: Perf ormed on POC Performed By: #### P GLU #### [facility] [address] [place] [address] POC Sample Type KIRA [facility] Comment on above: Performed By: #### P GLU #### [facility] [address] [place] [address] CNCOon 12-10-2022 CNCO Letter Text Normal [facility] ALLIED HEALTHon 12-09-2022 ALLIED HEALTH Normal [facility] CASE MANAGEMon 12-09-2022 CASE MANAGEM Normal [facility] CBC panel Auto (Bld)on 12-09 Erythrocyte distribution width (RBC) [Ratio] 13.5 % Normal 11.5-15.0 [facility] Comment on above: Order Comment: Speci men Type: BLOOD SPECIMENOrdering Facility: [facility] Address: [address] [place] [address] Performed By: #### 5 8410-2 ####[facility] LABIA [id number] [place] [address] [place] Hematocrit (Bld) [Volume fraction] 34.9 % Low 36.0-46.0 [facility] Comment on above: Order Comment: Speci men Type: BLOOD SPECIMENOrdering Facility: [facility] Address: [address] [place] [address] Performed By: #### 5 8410-2 ####[facility] LABIA [id number] [place] [address] [place] Hemoglobin (Bld) [Mass/Vol] 11.7 g/dL Normal 11.5-15.5 [facility] Comment on above: Order Comment: Speci men Type: BLOOD SPECIMENOrdering Facility: [facility] Address: [address] [place] [address] Performed By: #### 5 8410-2 ####[facility] LABIA [id number] [place] [address] [place] MCH (RBC) [Entitic mass] 31.0 pg Normal 26.0-34.0 [facility] Comment on above: Order Comment: Speci men Type: BLOOD SPECIMENOrdering Facility: [facility] Address: [address] [place] [address] Performed By: #### 5 8410-2 ####[facility] LABCLIA [id number] [place] [address] [place] MCHC (RBC) [Mass/Vol] 33.5 g/dL Normal 30.5-36.0 [facility] Comment on above: Order Comment: Speci men Type: BLOOD SPECIMENOrdering Facility: [facility] Address: [address] [place] [address] Performed By: #### 5 8410-2 ####[facility] LABIA [id number] [place] [address] [place] MCV (RBC) [Entitic vol] 92.3 fL Normal 80.0-100.0 [facility] Comment on above: Order Comment: Speci men Type: BLOOD SPECIMENOrdering Facility: [facility] Address: [address] [place] [address] Performed By: #### 5 8410-2 ####[facility] LABIA [id number] [place] [address] [place] Nucleated RBC (Bld) [#/Vol] 10*3/uL Normal <0.01 [facility] Comment on above: Order Comment: Speci men Type: BLOOD SPECIMENOrdering Facility: [facility] Address: [address] [place] [address] Performed By: #### 5 8410-2 ####[facility] LABIA [id number] [place] [address] [place] Platelet mean volume (Bld) [Entitic vol] 12.6 fL Normal 9.0-12.7 [facility] Comment on above: Order Comment: Speci men Type: BLOOD SPECIMENOrdering Facility: [facility] Address: [address] [place] [address] Performed By: #### 5 8410-2 ####[facility] LABIA [id number] [place] [address] [place] Platelets (Bld) [#/Vol] 172 10*3/uL Normal 150-400 [facility] Comment on above: Order Comment: Speci men Type: BLOOD SPECIMENOrdering Facility: [facility] Address: [address] [place] [address] Performed By: #### 5 8410-2 ####[facility] LABCLIA [id number] [place] [address] [place] RBC (Bld) [#/Vol] 3.78 10*6/uL Low 3.90-5.20 [facility] Comment on above: Order Comment: Speci men Type: BLOOD SPECIMENOrdering Facility: [facility] Address: [address] [place] [address] Performed By: #### 5 8410-2 ####[facility] LABCLIA [id number] [place] [address] [place] WBC (Bld) [#/Vol] 3.25 10*3/uL Low 3.70-11.00 [facility] Comment on above: Order Comment: Speci men Type: BLOOD SPECIMENOrdering Facility: [facility] Address: [address] [place] [address] Performed By: #### 5 8410-2 ####[facility] LABIA [id number] [place] [address] [place] CNDSon 12-09-2022 CNDS Normal [facility] CNPNon 12-09-2022 CNPN Normal [facility] CONSULT PROGon 12-09-2022 CONSULT PROG Normal [facility] Comprehensive metabolic 2000 panelon 12-09-2022 Albumin [Mass/Vol] 3.6 g/dL Low 3.9-4.9 [facility] Comment on above: Order Comment: Speci men Type: BLOOD SPECIMENOrdering Facility: [facility] Address: [address] [place] [address] Performed By: #### 2 4323-8, 83086-8, 2776-02 ####[facility] LABCLIA [id number] [address] [address] [place] ALP [Catalytic activity/Vol] 59 U/L Normal 34-123 [facility] Comment on above: Order Comment: Speci men Type: BLOOD SPECIMENOrdering Facility: [facility] Address: [address] [place] [address] Performed By: #### 2 4323-8, , 2776-02 ####[facility] LABCLIA [id number] [place] [address] [place] ALT [Catalytic activity/Vol] 13 U/L Normal 7-38 [facility] Comment on above: Order Comment: Speci men Type: BLOOD SPECIMENOrdering Facility: [facility] Address: [address] [place] [address] Performed By: #### 2 4323-8, , 2776-02 ####[facility] LABIA [id number] [place] [address] [place] Anion gap [Moles/Vol] 9 mmol/L Normal 9-18 [facility] Comment on above: Order Comment: Speci men Type: BLOOD SPECIMENOrdering Facility: [facility] Address: [address] [place] [address] Performed By: #### 2 4323-8, , 2776-02 ####[facility] LABCLIA [id number] [place] [address] [place] AST [Catalytic activity/Vol] 22 U/L Normal 13-35 [facility] Comment on above: Order Comment: Speci men Type: BLOOD SPECIMENOrdering Facility: [facility] Address: [address] [place] [address] Performed By: #### 2 4323-8, , 2776-02 ####[facility] LABCLIA [id number] [place] [id number] [place] Bilirubin [Mass/Vol] 0.2 mg/dL Normal 0.2-1.3 [facility] [facility] Comment on above: Order Comment: Speci men Type: BLOOD SPECIMENOrdering Facility: [facility] Address: [address] [place] [address] Performed By: #### 2 4323-8, , 2776-02 ####[facility] LABCLIA [id number] [place] [address] [place] Calcium [Mass/Vol] 8.7 mg/dL Normal 8.5-10.2 [facility] Comment on above: Order Comment: Speci men Type: BLOOD SPECIMENOrdering Facility: [facility] Address: [address] [place] [address] Performed By: #### 2 4323-8, , 2776-02 ####[facility] LABCLIA [id number] [place] [address] [place] Chloride [Moles/Vol] 108 mmol/L High 97-105 [facility] Comment on above: Order Comment: Speci men Type: BLOOD SPECIMENOrdering Facility: [facility] Address: [address] [place] [address] Performed By: #### 2 4323-8, , 2776-02 ####[facility] LABCLIA [id number] [place] [address] [place] CO2 [Moles/Vol] 23 mmol/L Normal 22-30 [facility] Comment on above: Order Comment: Speci men Type: BLOOD SPECIMENOrdering Facility: [facility] Address: [address] [place] [address] Performed By: #### 2 4323-8, , 2776-02 ####[facility] LABCLIA [id number] [place] [id number] [place] Creatinine [Mass/Vol] 0.61 mg/dL Normal 0.58-0.96 [facility] Comment on above: Order Comment: Geraldo marrero Type: BLOOD SPECIMENOrdering Facility: [facility] Address: [address] [place] [address] Performed By: #### 2 4323-8, 87678-3, 2776-02 ####[facility] LABCLIA [id number] [place] [address] [place] Creatinine and Glomerular filtration rate.predicted panel (S/P/Bld) 121 mL/min/1.73m??? Normal >=60 [facility] Comment on above: Order Comment: Geraldo marrero Type: BLOOD SPECIMENOrdering Facility: [facility] Address: [address] [place] [address] Result Comment: Jessica mated Glomerular Filtration Rate (eGFR) is calculated [...] Performed By: #### 2 4323-8, , 2776-02 ####[facility] LABCLIA [id number] [place] [address] [place] Glucose [Mass/Vol] 79 mg/dL Normal 74-99 [facility] Comment on above: Order Comment: Geraldo marrero Type: BLOOD SPECIMENOrdering Facility: [facility] Address: [address] [place] [address] Result Comment: The [place] [employer] (ADA) provides guidance for cutoff [...] Standards of Medical Care in Diabetes 2016, [place] [employer]. Diabetes Care. 2016.39(Suppl 1). Performed By: #### 2 4323-8, , 2776-02 ####[facility] LABCLIA [id number] [address] [address] [place] Potassium [Moles/Vol] 4.2 mmol/L Normal 3.7-5.1 [facility] Comment on above: Order Comment: Speci men Type: BLOOD SPECIMENOrdering Facility: [facility] Address: [address] [place] [id number] Performed By: #### 2 4323-8, , 2776-02 ####[facility] LABCLIA [id number] [address] [address] [place] Protein [Mass/Vol] 5.8 g/dL Low 6.3-8.0 [facility] Comment on above: Order Comment: Speci men Type: BLOOD SPECIMENOrdering Facility: [facility] Address: [address] [place] [address] Performed By: #### 2 4323-8, , 2776-02 ####[facility] LABIA [id number] [address] [address] [place] Sodium [Moles/Vol] 140 mmol/L Normal 136-144 [facility] Comment on above: Order Comment: Speci men Type: BLOOD SPECIMENOrdering Facility: [facility] Address: [address] [place] [address] Performed By: #### 2 4323-8, , 2776-02 ####[facility] LABIA [id number] [address] [address] [place] Urea nitrogen [Mass/Vol] 16 mg/dL Normal 7-21 [facility] Comment on above: Order Comment: Speci men Type: BLOOD SPECIMENOrdering Facility: [facility] Address: [address] [place] [id number] Performed By: #### 2 4323-8, 93729-2, 2776-02 ####[facility] LABCLIA [id number] [place] [address] [place] Magnesium SerPl-mCncon 12-09 Magnesium [Mass/Vol] 2.0 mg/dL Normal 1.7-2.3 [facility] Comment on above: Order Comment: Speci men Type: BLOOD SPECIMENOrdering Facility: [facility] Address: [address] [place] [address] Performed By: #### 2 4323-8, 64827-1, 2776-02 ####[facility] LABCLIA [id number] [place] [address] [place] NURSING PROGon 12-09-2022 NURSING PROG Normal [facility] PT EDon 12-09-2022 PT ED Normal [facility] Phosphate SerPl-mCncon 12-09 Phosphate [Mass/Vol] 1.8 mg/dL Low 2.7-4.8 [facility] Comment on above: Order Comment: Speci men Type: BLOOD SPECIMENOrdering Facility: [facility] Address: [address] [place] [address] Result Comment: Resu lt rechecked. Performed By: #### 2 4323-8, , 2776-02 ####[facility] LABIA [id number] [place] [address] [place] ALLIED HEALTHon 12-08-2022 ALLIED HEALTH Normal [facility] CBC panel Auto (Bld)on 12-08 Erythrocyte distribution width (RBC) [Ratio] 13.4 % Normal 11.5-15.0 [facility] Comment on above: Order Comment: Speci men Type: BLOOD SPECIMENOrdering Facility: [facility] Address: [address] [place] [address] Performed By: #### 5 8410-2 ####[facility] LABCLIA [id number] [place] [address] [place] Hematocrit (Bld) [Volume fraction] 32.5 % Low 36.0-46.0 [facility] Comment on above: Order Comment: Speci men Type: BLOOD SPECIMENOrdering Facility: [facility] Address: [address] [place] [address] Performed By: #### 5 8410-2 ####[facility] LABIA [id number] [place] [address] [place] Hemoglobin (Bld) [Mass/Vol] 11.1 g/dL Low 11.5-15.5 [facility] Comment on above: Order Comment: Speci men Type: BLOOD SPECIMENOrdering Facility: [facility] Address: [address] [place] [address] Performed By: #### 5 8410-2 ####[facility] LABIA [id number] [place] [address] [place] MCH (RBC) [Entitic mass] 31.2 pg Normal 26.0-34.0 [facility] Comment on above: Order Comment: Speci men Type: BLOOD SPECIMENOrdering Facility: [facility] Address: [address] [place] [address] Performed By: #### 5 8410-2 ####[facility] LABIA [id number] [place] [address] [place] MCHC (RBC) [Mass/Vol] 34.2 g/dL Normal 30.5-36.0 [facility] Comment on above: Order Comment: Speci men Type: BLOOD SPECIMENOrdering Facility: [facility] Address: [address] [place] [address] Performed By: #### 5 8410-2 ####[facility] LABCLIA [id number] [place] [address] [place] MCV (RBC) [Entitic vol] 91.3 fL Normal 80.0-100.0 [facility] Comment on above: Order Comment: Speci men Type: BLOOD SPECIMENOrdering Facility: [facility] Address: [address] [place] [address] Performed By: #### 5 8410-2 ####[facility] LABIA [id number] [place] [address] [place] Nucleated RBC (Bld) [#/Vol] 10*3/uL Normal <0.01 [facility] Comment on above: Order Comment: Speci men Type: BLOOD SPECIMENOrdering Facility: [facility] Address: [address] [place] [address] Performed By: #### 5 8410-2 ####[facility] LABIA [id number] [place] [address] [place] Platelet mean volume (Bld) [Entitic vol] 12.4 fL Normal 9.0-12.7 [facility] Comment on above: Order Comment: Speci men Type: BLOOD SPECIMENOrdering Facility: [facility] Address: [address] [place] [address] Performed By: #### 5 8410-2 ####[facility] LABIA [id number] [place] [address] [place] Platelets (Bld) [#/Vol] 161 10*3/uL Normal 150-400 [facility] Comment on above: Order Comment: Speci men Type: BLOOD SPECIMENOrdering Facility: [facility] Address: [address] [place] [address] Performed By: #### 5 8410-2 ####[facility] LABIA [id number] [place] [address] [place] RBC (Bld) [#/Vol] 3.56 10*6/uL Low 3.90-5.20 [facility] Comment on above: Order Comment: Speci men Type: BLOOD SPECIMENOrdering Facility: [facility] Address: [address] [place] [address] Performed By: #### 5 8410-2 ####[facility] LABCLIA [id number] [place] [address] [place] WBC (Bld) [#/Vol] 2.94 10*3/uL Low 3.70-11.00 [facility] Comment on above: Order Comment: Speci men Type: BLOOD SPECIMENOrdering Facility: [facility] Address: [address] [place] [address] Performed By: #### 5 8410-2 ####[facility] LABCLIA [id number] [place] [address] [place] CNPNon 12-08-2022 CNPN Normal [facility] CONSULT PROGon 12-08-2022 CONSULT PROG Normal [facility] Comprehensive metabolic 2000 panelon 12-08-2022 Albumin [Mass/Vol] 3.1 g/dL Low 3.9-4.9 [facility] Comment on above: Order Comment: Speci men Type: BLOOD SPECIMENOrdering Facility: [facility] Address: [address] [place] [address] Performed By: #### 1 9123-9, 44910-3, 2777-1 ####[facility] LABIA [id number] [place] [address] [place] ALP [Catalytic activity/Vol] 57 U/L Normal 34-123 [facility] Comment on above: Order Comment: Speci men Type: BLOOD SPECIMENOrdering Facility: [facility] Address: [address] [place] [address] Performed By: #### 1 9123-9, 21546-8, 2777-1 ####[facility] LABIA [id number] [place] [address] [place] ALT [Catalytic activity/Vol] 16 U/L Normal 7-38 [facility] Comment on above: Order Comment: Speci men Type: BLOOD SPECIMENOrdering Facility: [facility] Address: [address] [place] [address] Performed By: #### 1 9123-9, 99417-3, 2776- ####[facility] LABCLIA [id number] [place] [address] [place] Anion gap [Moles/Vol] 9 mmol/L Normal 9-18 [facility] Comment on above: Order Comment: Speci men Type: BLOOD SPECIMENOrdering Facility: [facility] Address: [address] [place] [address] Performed By: #### 1 9123-9, 73365-5, 2776-02 ####[facility] LABCLIA [id number] [place] [address] [place] AST [Catalytic activity/Vol] 26 U/L Normal 13-35 [facility] Comment on above: Order Comment: Speci men Type: BLOOD SPECIMENOrdering Facility: [facility] Address: [address] [place] [address] Performed By: #### 1 9123-9, , 2776-02 ####[facility] LABIA [id number] [place] [address] [place] Bilirubin [Mass/Vol] 0.2 mg/dL Normal 0.2-1.3 [facility] Comment on above: Order Comment: Speci men Type: BLOOD SPECIMENOrdering Facility: [facility] Address: [address] [place] [address] Performed By: #### 1 9123-9, 16846-1, 2776-02 ####[facility] LABCLIA [id number] [place] [address] [place] Calcium [Mass/Vol] 8.2 mg/dL Low 8.5-10.2 [facility] Comment on above: Order Comment: Speci men Type: BLOOD SPECIMENOrdering Facility: [facility] Address: [address] [place] [address] Performed By: #### 1 9123-9, 78888-8, 2776- ####[facility] LABIA [id number] [place] [address] [place] Chloride [Moles/Vol] 109 mmol/L High 97-105 [facility] Comment on above: Order Comment: Speci men Type: BLOOD SPECIMENOrdering Facility: [facility] Address: [address] [place] [address] Performed By: #### 1 9123-9, 29840-8, 2777-1 ####[facility] LABIA [id number] [place] [address] [place] CO2 [Moles/Vol] 23 mmol/L Normal 22-30 [facility] Comment on above: Order Comment: Speci men Type: BLOOD SPECIMENOrdering Facility: [facility] Address: [address] [place] [address] Performed By: #### 1 9123-9, 07096-8, 2777- ####[facility] LABIA [id number] [place] [address] [place] Creatinine [Mass/Vol] 0.73 mg/dL Normal 0.58-0.96 [facility] Comment on above: Order Comment: Speci men Type: BLOOD SPECIMENOrdering Facility: [facility] Address: [address] [place] [address] Performed By: #### 1 9123-9, 46084-9, 2777-1 ####[facility] [id number] [place] [address] [place] Creatinine and Glomerular filtration rate.predicted panel (S/P/Bld) 112 mL/min/1.73m??? Normal >=60 [facility] Comment on above: Order Comment: Speci men Type: BLOOD SPECIMENOrdering Facility: [facility] Address: [address] [place] [address] Result Comment: Jessica mated Glomerular Filtration Rate (eGFR) is calculated [...] actual GFR. Performed By: #### 1 9123-9, 24879-4, 2776-02 ####[facility] LABCLIA [id number] [address] [address] [place] Glucose [Mass/Vol] 119 mg/dL High 74-99 [facility] Comment on above: Order Comment: Geraldo marrero Type: BLOOD SPECIMENOrdering Facility: [facility] Address: [address] [place] [address] Result Comment: The [place] [employer] (ADA) provides guidance for cutoff [...] Standards of Medical Care in Diabetes 2016, [place] [employer]. Diabetes Care. 2016.39(Suppl 1). Performed By: #### 1 9123-9, , 2776-02 ####[facility] LABCLIA [id number] [address] [address] [place] Potassium [Moles/Vol] 3.5 mmol/L Low 3.7-5.1 [facility] Comment on above: Order Comment: Geraldo marrero Type: BLOOD SPECIMENOrdering Facility: [facility] Address: [address] [place] [address] Performed By: #### 1 9123-9, , 2776-02 ####[facility] LABCLIA [id number] [address] [address] [place] Protein [Mass/Vol] 5.2 g/dL Low 6.3-8.0 [facility] Comment on above: Order Comment: Speci men Type: BLOOD SPECIMENOrdering Facility: [facility] Address: [address] [place] [address] Performed By: #### 1 9123-9, 57196-2, 2777-1 ####[facility] LABCLIA [id number] [place] [address] [place] Sodium [Moles/Vol] 141 mmol/L Normal 136-144 [facility] Comment on above: Order Comment: Speci men Type: BLOOD SPECIMENOrdering Facility: [facility] Address: [address] [place] [address] Performed By: #### 1 9123-9, 90719-9, 2777- ####[facility] LABCLIA [id number] [place] [address] [place] Urea nitrogen [Mass/Vol] 10 mg/dL Normal 7-21 [facility] Comment on above: Order Comment: Speci men Type: BLOOD SPECIMENOrdering Facility: [facility] Address: [address] [place] [address] Performed By: #### 1 9123-9, 34582-9, 2777- ####[facility] LABCLIA [id number] [place] [address] [place] Magnesium SerPl-mCncon 12-08 Magnesium [Mass/Vol] 2.1 mg/dL Normal 1.7-2.3 [facility] Comment on above: Order Comment: Speci men Type: BLOOD SPECIMENOrdering Facility: [facility] Address: [address] [place] [address] Performed By: #### 1 9123-9, 08077-6, 2777-1 ####[facility] LABCLIA [id number] [place] [address] [place] Phosphate SerPl-mCncon 12-08 Phosphate [Mass/Vol] 4.7 mg/dL Normal 2.7-4.8 [facility] Comment on above: Order Comment: Speci men Type: BLOOD SPECIMENOrdering Facility: [facility] Address: [address] [place] [address] Performed By: #### 1 9123-9, 17706-0, 2777-1 ####[facility] LABCLIA [id number] [place] [address] [place] CBC panel Auto (Bld)on 12-07 Erythrocyte distribution width (RBC) [Ratio] 13.2 % Normal 11.5-15.0 [facility] Comment on above: Order Comment: Speci men Type: BLOOD SPECIMENOrdering Facility: [facility] Address: [address] [place] [address] Performed By: #### 5 8410-2 ####[facility] LABCLIA [id number] [place] [address] [place] Hematocrit (Bld) [Volume fraction] 33.9 % Low 36.0-46.0 [facility] Comment on above: Order Comment: Speci men Type: BLOOD SPECIMENOrdering Facility: [facility] Address: [address] [place] [address] Performed By: #### 5 8410-2 ####[facility] LABCLIA [id number] [place] [address] [place] Hemoglobin (Bld) [Mass/Vol] 11.6 g/dL Normal 11.5-15.5 [facility] Comment on above: Order Comment: Speci men Type: BLOOD SPECIMENOrdering Facility: [facility] Address: [address] [place] [address] Performed By: #### 5 8410-2 ####[facility] LABCLIA [id number] [place] [address] [place] MCH (RBC) [Entitic mass] 30.9 pg Normal 26.0-34.0 [facility] Comment on above: Order Comment: Speci men Type: BLOOD SPECIMENOrdering Facility: [facility] Address: [address] [place] [address] Performed By: #### 5 8410-2 ####[facility]UN[facility] [id number] [place] [address] [place] MCHC (RBC) [Mass/Vol] 34.2 g/dL Normal 30.5-36.0 [facility] Comment on above: Order Comment: Speci men Type: BLOOD SPECIMENOrdering Facility: [facility] Address: [address] [place] [address] Performed By: #### 5 8410-2 ####[facility] [id number] [place] [address] [place] MCV (RBC) [Entitic vol] 90.4 fL Normal 80.0-100.0 [facility] Comment on above: Order Comment: Speci men Type: BLOOD SPECIMENOrdering Facility: [facility] Address: [address] [place] [address] Performed By: #### 5 8410-2 ####[facility] [id number] [place] [address] [place] Nucleated RBC (Bld) [#/Vol] 10*3/uL Normal <0.01 [facility] Comment on above: Order Comment: Speci men Type: BLOOD SPECIMENOrdering Facility: [facility] Address: [address] [place] [address] Performed By: #### 5 8410-2 ####[facility]UN[facility] [id number] [place] [address] [place] Platelet mean volume (Bld) [Entitic vol] 12.5 fL Normal 9.0-12.7 [facility] Comment on above: Order Comment: Speci men Type: BLOOD SPECIMENOrdering Facility: [facility] Address: [address] [place] [address] Performed By: #### 5 8410-2 ####[facility] LABCLIA [id number] [place] [address] [place] Platelets (Bld) [#/Vol] 175 10*3/uL Normal 150-400 [facility] Comment on above: Order Comment: Speci men Type: BLOOD SPECIMENOrdering Facility: [facility] Address: [address] [place] [address] Performed By: #### 5 8410-2 ####[facility] LABIA [id number] [place] [address] [place] RBC (Bld) [#/Vol] 3.75 10*6/uL Low 3.90-5.20 [facility] Comment on above: Order Comment: Speci men Type: BLOOD SPECIMENOrdering Facility: [facility] Address: [address] [place] [address] Performed By: #### 5 8410-2 ####[facility] LABIA [id number] [place] [address] [place] WBC (Bld) [#/Vol] 2.61 10*3/uL Low 3.70-11.00 [facility] Comment on above: Order Comment: Speci men Type: BLOOD SPECIMENOrdering Facility: [facility] Address: [address] [place] [address] Performed By: #### 5 8410-2 ####[facility] LABIA [id number] [place] [address] [place] CONSULTon 12-07-2022 CONSULT Normal [facility] CONSULT PROGon 12-07-2022 CONSULT PROG Normal [facility] Comprehensive metabolic 2000 panelon 12-07-2022 Albumin [Mass/Vol] 3.4 g/dL Low 3.9-4.9 [facility] Comment on above: Order Comment: Speci men Type: BLOOD SPECIMENOrdering Facility: [facility] Address: [address] [place] [address] Performed By: #### 2 4323-8 ####[facility] LABCLIA [id number] [place] [address] [place] ALP [Catalytic activity/Vol] 62 U/L Normal 34-123 [facility] Comment on above: Order Comment: Speci men Type: BLOOD SPECIMENOrdering Facility: [facility] Address: [address] [place] [address] Performed By: #### 2 4323-8 ####[facility] LABCLIA [id number] [place] [address] [place] ALT [Catalytic activity/Vol] 19 U/L Normal 7-38 [facility] Comment on above: Order Comment: Speci men Type: BLOOD SPECIMENOrdering Facility: [facility] Address: [address] [place] [address] Performed By: #### 2 4323-8 ####[facility] LABCLIA [id number] [place] [address] [place] Anion gap [Moles/Vol] 9 mmol/L Normal 9-18 [facility] Comment on above: Order Comment: Speci men Type: BLOOD SPECIMENOrdering Facility: [facility] Address: [address] [place] [address] Performed By: #### 2 4323-8 ####[facility] LABCLIA [id number] [place] [address] [place] AST [Catalytic activity/Vol] 31 U/L Normal 13-35 [facility] Comment on above: Order Comment: Speci men Type: BLOOD SPECIMENOrdering Facility: [facility] Address: [address] [place] [address] Performed By: #### 2 4323-8 ####[facility] LABCLIA [id number] [place] [id number] [place] Bilirubin [Mass/Vol] 0.3 mg/dL Normal 0.2-1.3 [facility] Comment on above: Order Comment: Speci men Type: BLOOD SPECIMENOrdering Facility: [facility] Address: [address] [place] [address] Performed By: #### 2 4323-8 ####[facility] LABCLIA [id number] [place] [address] [place] Calcium [Mass/Vol] 8.6 mg/dL Normal 8.5-10.2 [facility] Comment on above: Order Comment: Speci men Type: BLOOD SPECIMENOrdering Facility: [facility] Address: [address] [place] [address] Performed By: #### 2 4323-8 ####[facility] LABCLIA [id number] [place] [address] [place] Chloride [Moles/Vol] 108 mmol/L High 97-105 [facility] Comment on above: Order Comment: Speci men Type: BLOOD SPECIMENOrdering Facility: [facility] Address: [address] [place] [address] Performed By: #### 2 4323-8 ####[facility] LABCLIA [id number] [place] [address] [place] CO2 [Moles/Vol] 22 mmol/L Normal 22-30 [facility] Comment on above: Order Comment: Speci men Type: BLOOD SPECIMENOrdering Facility: [facility] Address: [address] [place] [address] Performed By: #### 2 4323-8 ####[facility] LABCLIA [id number] [place] [address] [place] Creatinine [Mass/Vol] 0.85 mg/dL Normal 0.58-0.96 [facility] Comment on above: Order Comment: Speci men Type: BLOOD SPECIMENOrdering Facility: [facility] Address: [address] [place] [address] Performed By: #### 2 4323-8 ####[facility] LABCLIA [id number] [place] [address] [place] Creatinine and Glomerular filtration rate.predicted panel (S/P/Bld) 93 mL/min/1.73m??? Normal >=60 [facility] Comment on above: Order Comment: Geraldo elida Type: BLOOD SPECIMENOrdering Facility: [facility] Address: [address] [place] [address] Result Comment: Jessica mated Glomerular Filtration Rate (eGFR) is calculated [...] actual GFR. Performed By: #### 2 4323-8 ####[facility] LABCLIA [id number] [place] [address] [place] Glucose [Mass/Vol] 80 mg/dL Normal 74-99 [facility] Comment on above: Order Comment: Geraldo marrero Type: BLOOD SPECIMENOrdering Facility: [facility] Address: [address] [place] [address] Result Comment: The [place] [employer] (ADA) provides guidance for cutoff [...] Standards of Medical Care in Diabetes 2016, [place] [employer]. Diabetes Care. 2016.39(Suppl 1). Performed By: #### 2 4323-8 ####[facility] LABCLIA [id number] [place] [address] [place] Potassium [Moles/Vol] 3.7 mmol/L Normal 3.7-5.1 [facility] Comment on above: Order Comment: Speci men Type: BLOOD SPECIMENOrdering Facility: [facility] Address: [address] [place] [address] Performed By: #### 2 4323-8 ####[facility] LABCLIA [id number] [place] [address] [place] Protein [Mass/Vol] 5.5 g/dL Low 6.3-8.0 [facility] Comment on above: Order Comment: Speci men Type: BLOOD SPECIMENOrdering Facility: [facility] Address: [address] [place] [address] Performed By: #### 2 4323-8 ####[facility] LABCLIA [id number] [place] [address] [place] Sodium [Moles/Vol] 139 mmol/L Normal 136-144 [facility] Comment on above: Order Comment: Speci men Type: BLOOD SPECIMENOrdering Facility: [facility] Address: [address] [place] [address] Performed By: #### 2 4323-8 ####[facility] LABCLIA [id number] [place] [address] [place] Urea nitrogen [Mass/Vol] 12 mg/dL Normal 7-21 [facility] Comment on above: Order Comment: Speci men Type: BLOOD SPECIMENOrdering Facility: [facility] Address: [address] [place] [address] Performed By: #### 2 4323-8 ####[facility] LABCLIA [id number] [place] [address] [place] ED NOTEon 12-07-2022 ED NOTE HNO ID: [id number] Author: Michelle Regalado RN Service: Emergency Medicine Author Type: Registered Nurse Type: ED Notes Filed: 12/06/2022 10:09 PM Note Text: Report called to DEE Argueta. Normal [facility] NURSING PROGon 12-07-2022 NURSING PROG Normal [facility] XR CHEST 1V PORT POST PICC - NBon 12-07-2022 XR CHEST 1V PORT POST PICC -NB Normal [facility] CASE MGT INIT ASSESon 2022 CASE MGT INIT ASSES Normal [facility] CBC W Auto Differential pane l (Bld)on 12-06-2022 Basophils (Bld) [#/Vol] 10*3/uL Normal <0.11 [facility] Comment on above: Order Comment: Speci men Type: BLOOD SPECIMENOrdering Facility: [facility] Address: [address] [place] [address] Performed By: #### 5 7021-8 ####[facility] LABCLIA [id number] [place] [address] [place] Basophils/100 WBC (Bld) 0.7 % Normal [facility] Comment on above: Order Comment: Speci men Type: BLOOD SPECIMENOrdering Facility: [facility] Address: [address] [place] [address] Performed By: #### 5 7021-8 ####[facility] LABCLIA [id number] [place] [address] [place] Differential cell count method Nom (Bld) Auto Normal [facility] Comment on above: Order Comment: Speci men Type: BLOOD SPECIMENOrdering Facility: [facility] Address: [address] [place] [address] Performed By: #### 5 7021-8 ####[facility] LABCLIA [id number] [place] [address] [place] Eosinophils (Bld) [#/Vol] 0.09 10*3/uL Normal <0.46 [facility] Comment on above: Order Comment: Speci men Type: BLOOD SPECIMENOrdering Facility: [facility] Address: [address] [place] [address] Performed By: #### 5 7021-8 ####[facility] LABCLIA [id number] [place] [address] [place] Eosinophils/100 WBC (Bld) 2.9 % Normal [facility] Comment on above: Order Comment: Speci men Type: BLOOD SPECIMENOrdering Facility: [facility] Address: [address] [place] [address] Performed By: #### 5 7021-8 ####[facility] LABCLIA [id number] [place] [address] [place] Erythrocyte distribution width (RBC) [Ratio] 13.2 % Normal 11.5-15.0 [facility] Comment on above: Order Comment: Speci men Type: BLOOD SPECIMENOrdering Facility: [facility] Address: [address] [place] [address] Performed By: #### 5 7021-8 ####[facility] LABCLIA [id number] [place] [address] [place] Hematocrit (Bld) [Volume fraction] 33.7 % Low 36.0-46.0 [facility] Comment on above: Order Comment: Speci men Type: BLOOD SPECIMENOrdering Facility: [facility] Address: [address] [place] [address] Performed By: #### 5 7021-8 ####[facility] LABCLIA [id number] [place] [address] [place] Hemoglobin (Bld) [Mass/Vol] 11.6 g/dL Normal 11.5-15.5 [facility] Comment on above: Order Comment: Speci men Type: BLOOD SPECIMENOrdering Facility: [facility] Address: [address] [place] [address] Performed By: #### 5 7021-8 ####[facility] LABCLIA [id number] [place] [address] [place] Immature granulocytes (Bld) [#/Vol] 10*3/uL Normal <0.10 [facility] Comment on above: Order Comment: Speci men Type: BLOOD SPECIMENOrdering Facility: [facility] Address: [address] [place] [address] Performed By: #### 5 7021-8 ####[facility] LABCLIA [id number] [place] [address] [place] Immature granulocytes/100 WBC (Bld) 0.3 % Normal [facility] Comment on above: Order Comment: Speci men Type: BLOOD SPECIMENOrdering Facility: [facility] Address: [address] [place] [address] Performed By: #### 5 7021-8 ####[facility] LABCLIA [id number] [place] [address] [place] Lymphocytes (Bld) [#/Vol] 1.31 10*3/uL Normal 1.00-4.00 [facility] Comment on above: Order Comment: Speci men Type: BLOOD SPECIMENOrdering Facility: [facility] Address: [address] [place] [address] Performed By: #### 5 7021-8 ####[facility] LABCLIA [id number] [place] [address] [place] Lymphocytes/100 WBC (Bld) 42.8 % Normal [facility] Comment on above: Order Comment: Speci men Type: BLOOD SPECIMENOrdering Facility: [facility] Address: [address] [place] [address] Performed By: #### 5 7021-8 ####[facility] LABCLIA [id number] [place] [address] [place] MCH (RBC) [Entitic mass] 30.8 pg Normal 26.0-34.0 [facility] Comment on above: Order Comment: Speci men Type: BLOOD SPECIMENOrdering Facility: [facility] Address: [address] [place] [address] Performed By: #### 5 7021-8 ####[facility] LABCLIA [id number] [place] [address] [place] MCHC (RBC) [Mass/Vol] 34.4 g/dL Normal 30.5-36.0 [facility] Comment on above: Order Comment: Speci men Type: BLOOD SPECIMENOrdering Facility: [facility] Address: [address] [place] [address] Performed By: #### 5 7021-8 ####[facility] LABCLIA [id number] [place] [address] [place] MCV (RBC) [Entitic vol] 89.4 fL Normal 80.0-100.0 [facility] Comment on above: Order Comment: Speci men Type: BLOOD SPECIMENOrdering Facility: [facility] Address: [address] [place] [address] Performed By: #### 5 7021-8 ####[facility] LABCLIA [id number] [place] [address] [place] Monocytes (Bld) [#/Vol] 0.24 10*3/uL Normal <0.87 [facility] Comment on above: Order Comment: Speci men Type: BLOOD SPECIMENOrdering Facility: [facility] Address: [address] [place] [address] Performed By: #### 5 7021-8 ####[facility] LABCLIA [id number] [place] [address] [place] Monocytes/100 WBC (Bld) 7.8 % Normal [facility] Comment on above: Order Comment: Speci men Type: BLOOD SPECIMENOrdering Facility: [facility] Address: [address] [place] [address] Performed By: #### 5 7021-8 ####[facility] LABCLIA [id number] [place] [address] [place] Neutrophils (Bld) [#/Vol] 1.39 10*3/uL Low 1.45-7.50 [facility] Comment on above: Order Comment: Speci men Type: BLOOD SPECIMENOrdering Facility: [facility] Address: [address] [place] [address] Performed By: #### 5 7021-8 ####[facility] LABCLIA [id number] [place] [address] [place] Neutrophils/100 WBC (Bld) 45.5 % Normal [facility] Comment on above: Order Comment: Speci men Type: BLOOD SPECIMENOrdering Facility: [facility] Address: [address] [place] [address] Performed By: #### 5 7021-8 ####[facility] LABCLIA [id number] [place] [address] [place] Nucleated RBC (Bld) [#/Vol] 10*3/uL Normal <0.01 [facility] Comment on above: Order Comment: Speci men Type: BLOOD SPECIMENOrdering Facility: [facility] Address: [address] [place] [address] Performed By: #### 5 7021-8 ####[facility] LABCLIA [id number] [place] [address] [place] Nucleated RBC/100 WBC (Bld) [Ratio] 0.0 /100 WBC Normal [facility] Comment on above: Order Comment: Speci men Type: BLOOD SPECIMENOrdering Facility: [facility] Address: [address] [place] [address] Performed By: #### 5 7021-8 ####[facility] LABCLIA [id number] [place] [address] [place] Platelet mean volume (Bld) [Entitic vol] 11.9 fL Normal 9.0-12.7 [facility] Comment on above: Order Comment: Speci men Type: BLOOD SPECIMENOrdering Facility: [facility] Address: [address] [place] [address] Performed By: #### 5 7021-8 ####[facility] LABCLIA [id number] [place] [address] [place] Platelets (Bld) [#/Vol] 163 10*3/uL Normal 150-400 [facility] Comment on above: Order Comment: Speci men Type: BLOOD SPECIMENOrdering Facility: [facility] Address: [address] [place] [address] Performed By: #### 5 7021-8 ####[facility] LABIA [id number] [place] [address] [place] RBC (Bld) [#/Vol] 3.77 10*6/uL Low 3.90-5.20 [facility] Comment on above: Order Comment: Speci men Type: BLOOD SPECIMENOrdering Facility: [facility] Address: [address] [place] [address] Performed By: #### 5 7021-8 ####[facility] LABIA [id number] [place] [address] [place] WBC (Bld) [#/Vol] 3.06 10*3/uL Low 3.70-11.00 [facility] Comment on above: Order Comment: Speci men Type: BLOOD SPECIMENOrdering Facility: [facility] Address: [address] [place] [address] Performed By: #### 5 7021-8 ####[facility] LABIA [id number] [place] [address] [place] CTA ABD/PELV W IVCONon 12-06 CTA ABD/PELV W IVCON Normal [facility] Comprehensive metabolic 2000 panelon 12-06-2022 Albumin [Mass/Vol] 3.6 g/dL Low 3.9-4.9 [facility] Comment on above: Order Comment: Speci men Type: BLOOD SPECIMENOrdering Facility: [facility] Address: [address] [place] [address] Performed By: #### 2 4323-8, 3040-3, 27707-7, 2776-02 ####[facility] LABCLIA [id number] [address] [address] [place] ALP [Catalytic activity/Vol] 61 U/L Normal 34-123 [facility] Comment on above: Order Comment: Speci men Type: BLOOD SPECIMENOrdering Facility: [facility] Address: [address] [place] [address] Performed By: #### 2 4323-8, 0-3, , 2776-02 ####[facility] LABCLIA [id number] [place] [id number] [place] ALT [Catalytic activity/Vol] 16 U/L Normal 7-38 [facility] Comment on above: Order Comment: Speci men Type: BLOOD SPECIMENOrdering Facility: [facility] Address: [address] [place] [address] Performed By: #### 2 4323-8, 3039-3, , 2776-02 ####[facility] LABCLIA [id number] [place] [address] [place] Anion gap [Moles/Vol] 10 mmol/L Normal 9-18 [facility] Comment on above: Order Comment: Speci men Type: BLOOD SPECIMENOrdering Facility: [facility] Address: [address] [place] [address] Performed By: #### 2 4323-8, 3039-3, , 2776-02 ####[facility] LABCLIA [id number] [place] [id number] [place] AST [Catalytic activity/Vol] 29 U/L Normal 13-35 [facility] Comment on above: Order Comment: Speci men Type: BLOOD SPECIMENOrdering Facility: [facility] Address: [address] [place] [address] Performed By: #### 2 4323-8, 0-3, , 2776-02 ####[facility] LABCLIA [id number] [place] [address] [place] Bilirubin [Mass/Vol] 0.2 mg/dL Normal 0.2-1.3 [facility] Comment on above: Order Comment: Speci men Type: BLOOD SPECIMENOrdering Facility: [facility] Address: [address] [place] [address] Performed By: #### 2 4323-8, 3040-3, , 2776- ####[facility] LABCLIA [id number] [place] [address] [place] Calcium [Mass/Vol] 8.2 mg/dL Low 8.5-10.2 [facility] Comment on above: Order Comment: Speci men Type: BLOOD SPECIMENOrdering Facility: [facility] Address: [address] [place] [address] Performed By: #### 2 4323-8, 3040-3, , 2776-02 ####[facility] LABCLIA [id number] [place] [address] [place] Chloride [Moles/Vol] 109 mmol/L High 97-105 [facility] Comment on above: Order Comment: Speci men Type: BLOOD SPECIMENOrdering Facility: [facility] Address: [address] [place] [address] Performed By: #### 2 4323-8, 3040-3, , 2776-02 ####[facility] LABCLIA [id number] [place] [id number] [place] CO2 [Moles/Vol] 21 mmol/L Low 22-30 [facility] Comment on above: Order Comment: Speci men Type: BLOOD SPECIMENOrdering Facility: [facility] Address: [address] [place] [address] Performed By: #### 2 4323-8, 3040-3, , 2776-02 ####[facility] LABCLIA [id number] [place] [address] [place] Creatinine [Mass/Vol] 0.66 mg/dL Normal 0.58-0.96 [facility] Comment on above: Order Comment: Geraldo marrero Type: BLOOD SPECIMENOrdering Facility: [facility] Address: [address] [place] [address] Performed By: #### 2 4323-8, 3040-3, 74034-0, 2776-02 ####[facility] LABIA [id number] [place] [address] [place] Creatinine and Glomerular filtration rate.predicted panel (S/P/Bld) 119 mL/min/1.73m??? Normal >=60 [facility] Comment on above: Order Comment: Geraldo marrero Type: BLOOD SPECIMENOrdering Facility: [facility] Address: [address] [place] [address] Result Comment: Jessica mated Glomerular Filtration Rate (eGFR) is calculated [...] GFR. Performed By: #### 2 4323-8, 3040-3, , 2776-02 ####[facility] LABIA [id number] [place] [id number] [place] Glucose [Mass/Vol] 83 mg/dL Normal 74-99 [facility] Comment on above: Order Comment: Geraldo elida Type: BLOOD SPECIMENOrdering Facility: [facility] Address: [address] [place] [address] Result Comment: The [place] [employer] (ADA) provides guidance for cutoff [...] Standards of Medical Care in Diabetes 2016, [place] [employer]. Diabetes Care. 2016.39(Suppl 1). Performed By: #### 2 4323-8, 3040-3, , 2776- ####[facility] LABCLIA [id number] [place] [address] [place] Potassium [Moles/Vol] 3.7 mmol/L Normal 3.7-5.1 [facility] Comment on above: Order Comment: Speci men Type: BLOOD SPECIMENOrdering Facility: [facility] Address: [address] [place] [address] Performed By: #### 2 4323-8, 3040-3, , 2776-02 ####[facility] LABIA [id number] [place] [address] [place] Protein [Mass/Vol] 5.9 g/dL Low 6.3-8.0 [facility] Comment on above: Order Comment: Speci men Type: BLOOD SPECIMENOrdering Facility: [facility] Address: [address] [place] [address] Performed By: #### 2 4323-8, 3040-3, , 2776-02 ####[facility] LABIA [id number] [place] [id number] [place] Sodium [Moles/Vol] 140 mmol/L Normal 136-144 [facility] Comment on above: Order Comment: Speci men Type: BLOOD SPECIMENOrdering Facility: [facility] Address: [address] [place] [address] Performed By: #### 2 4323-8, 3040-3, , 2776-1 ####[facility] LABCLIA [id number] [address] [address] [place] Urea nitrogen [Mass/Vol] 13 mg/dL Normal 7-21 [facility] Comment on above: Order Comment: Speci men Type: BLOOD SPECIMENOrdering Facility: [facility] Address: [address] [place], [place] [address] Performed By: #### 2 4323-8, 3040-3, 13387-4, 7- ####[facility] LABCLIA [id number] [place] [id number] [place] ED NOTEon 12-06-2022 ED NOTE HNO ID: [id number] Author: Maia Mosher RN Service: Emergency Medicine Author Type: Registered Nurse Type: ED Notes Filed: 12/06/2022 3:19 PM Note Text: Nurse handoff given to DEE Carreon Normal [facility] ED PROV NOTEon 12-06-2022 ED PROV NOTE Normal [facility] HISTORY PHYSICALon HISTORY PHYSICAL Normal [facility] Lipase SerPl-cCncon 12-07-19 23 Lipase [Catalytic activity/Vol] 40 U/L Normal 16-61 [facility] Comment on above: Order Comment: Speci men Type: BLOOD SPECIMENOrdering Facility: [facility] Address: [address] [place] [address] Performed By: #### 2 4323-8, 3040-3, , 2776-02 ####[facility] LABCLIA [id number] [place] [id number] [place] Magnesium SerPl-mCncon 12-06 Magnesium [Mass/Vol] 2.0 mg/dL Normal 1.7-2.3 [facility] Comment on above: Order Comment: Speci men Type: BLOOD SPECIMENOrdering Facility: [facility] Address: [address] [place], [place] [address] Performed By: #### 2 4323-8, 3040-3, 37091-9, 2777- ####[facility] LABCLIA [id number] [place] [address] [place] Phosphate SerPl-mCncon 12-06 Phosphate [Mass/Vol] 2.7 mg/dL Normal 2.7-4.8 [facility] Comment on above: Order Comment: Speci men Type: BLOOD SPECIMENOrdering Facility: [facility] Address: [address] [place] [address] Performed By: #### 2 4323-8, 3040-3, 52653-5, 2777-1 ####[facility] LABIA [id number] [place] [address] [place] Urinalysis complete panel (U )on 12-06-2022 Bacteria LM.HPF (Urine sed) [#/Area] Negative Normal Negative [facility] Comment on above: Order Comment: Speci men Type: URINE SPECIMENOrdering Facility: [facility] Address: [address] [place] [address] Performed By: #### 2 4356-8 ####[facility] LABIA [id number] [place] [address] [place] Bilirubin Ql (U) Negative Normal Negative [facility] Comment on above: Order Comment: Speci men Type: URINE SPECIMENOrdering Facility: [facility] Address: [address] [place] [address] Performed By: #### 2 4356-8 ####[facility] LABIA [id number] [place] [address] [place] Clarity (Unsp spec) Clear Normal Clear [facility] Comment on above: Order Comment: Speci men Type: URINE SPECIMENOrdering Facility: [facility] Address: [address] [place] [address] Performed By: #### 2 4356-8 ####[facility] LABCLIA [id number] [place] [address] [place] Color (U) Yellow Normal Yellow [facility] Comment on above: Order Comment: Speci men Type: URINE SPECIMENOrdering Facility: [facility] Address: [address] [place] [address] Performed By: #### 2 4356-8 ####[facility] LABCLIA [id number] [place] [address] [place] Epithelial cells LM.HPF (Urine sed) [#/Area] Moderate Normal [facility] Comment on above: Order Comment: Speci men Type: URINE SPECIMENOrdering Facility: [facility] Address: [address] [place] [address] Performed By: #### 2 4356-8 ####[facility] LABCLIA [id number] [place] [address] [place] Glucose Test strip (U) [Mass/Vol] Negative Normal Negative [facility] Comment on above: Order Comment: Speci men Type: URINE SPECIMENOrdering Facility: [facility] Address: [address] [place] [address] Performed By: #### 2 4356-8 ####[facility] LABCLIA [id number] [place] [address] [place] Hemoglobin Ql (U) Negative Normal Negative [facility] Comment on above: Order Comment: Speci men Type: URINE SPECIMENOrdering Facility: [facility] Address: [address] [place] [address] Performed By: #### 2 4356-8 ####[facility] LABCLIA [id number] [place] [address] [place] Hyaline casts (Urine sed) [#/Area] 0 /[LPF] Normal 0 /LPF [facility] Comment on above: Order Comment: Speci men Type: URINE SPECIMENOrdering Facility: [facility] Address: [address] [place] [address] Performed By: #### 2 4356-8 ####[facility] LABCLIA [id number] [place] [id number] [place] Ketones Ql (U) Negative Normal Negative [facility] Comment on above: Order Comment: Speci men Type: URINE SPECIMENOrdering Facility: [facility] Address: [address] [place] [address] Performed By: #### 2 4356-8 ####[facility] LABCLIA [id number] [place] [address] [place] Leukocyte esterase Test strip Ql (U) Negative Normal Negative [facility] Comment on above: Order Comment: Speci men Type: URINE SPECIMENOrdering Facility: [facility] Address: [address] [place] [address] Performed By: #### 2 4356-8 ####[facility] LABCLIA [id number] [place] [address] [place] Nitrite Ql (U) Negative Normal Negative [facility] Comment on above: Order Comment: Speci men Type: URINE SPECIMENOrdering Facility: [facility] Address: [address] [place] [address] Performed By: #### 2 4356-8 ####[facility] LABCLIA [id number] [place] [address] [place] pH (U) 7.0 [pH] Normal <8.5 [facility] Comment on above: Order Comment: Speci men Type: URINE SPECIMENOrdering Facility: [facility] Address: [address] [place] [address] Performed By: #### 2 4356-8 ####[facility] LABCLIA [id number] [place] [address] [place] Protein (U) [Mass/Vol] Negative Normal Negative [facility] Comment on above: Order Comment: Speci men Type: URINE SPECIMENOrdering Facility: [facility] Address: [address] [place] [address] Performed By: #### 2 4356-8 ####[facility] LABCLIA [id number] [place] [address] [place] RBC LM.HPF (Urine sed) [#/Area] 0-2 /HPF Normal 0-2 /HPF [facility] Comment on above: Order Comment: Speci men Type: URINE SPECIMENOrdering Facility: [facility] Address: [address] [place] [address] Performed By: #### 2 4356-8 ####[facility] LABIA [id number] [place] [address] [place] Specific gravity (U) [Rel density] 1.014 Normal 1.005-1.030 [facility] Comment on above: Order Comment: Speci men Type: URINE SPECIMENOrdering Facility: [facility] Address: [address] [place] [address] Performed By: #### 2 4356-8 ####[facility] LABIA [id number] [place] [address] [place] Urobilinogen Ql (U) 0.2 EU/dL Normal 0.2-1.0 EU/dL [facility] Comment on above: Order Comment: Speci men Type: URINE SPECIMENOrdering Facility: [facility] Address: [address] [place] [address] Performed By: #### 2 4356-8 ####[facility] LABIA [id number] [place] [address] [place] WBC LM.HPF (Urine sed) [#/Area] 0-5 /HPF Normal 0-5 /HPF [facility] Comment on above: Order Comment: Speci men Type: URINE SPECIMENOrdering Facility: [facility] Address: [address] [place] [address] Performed By: #### 2 4356-8 ####[facility] LABIA [id number] [place] [address] [place] CNOVon 12-04-2022 CNOV Normal [facility] HISTORY PHYSICALon HISTORY PHYSICAL Normal [facility] Basic Metabolic Panelon 10- Anion gap [Moles/Vol] 10 mmol/L Normal 9-15 [facility] Comment on above: Performed By: #### L IPAS #### [facility] [address] [place] [address] Calcium [Mass/Vol] 8.4 mg/dL Low 8.5-9.9 [facility] Comment on above: Performed By: #### L IPAS #### [facility] [address] [place] [address] Chloride [Moles/Vol] 108 mmol/L Critically high 95-107 [facility] Comment on above: Performed By: #### L IPAS #### [facility] [address] [place] [address] CO2 [Moles/Vol] 23 mmol/L Normal 20-31 [facility] Comment on above: Performed By: #### L IPAS #### [facility] [address] [place] [address] Creatinine [Mass/Vol] 0.64 mg/dL Normal 0.50-0.90 [facility] Comment on above: Performed By: #### L IPAS #### [facility] [address] [place] [address] GFR >60.0 Normal >60 [facility] Comment on above: Result Comment: Pedi atric [...] secretion. Performed By: #### L IPAS #### [facility] [address] [place] [address] Glucose [Mass/Vol] 86 mg/dL Normal 70-99 [facility] Comment on above: Performed By: #### L IPAS #### [facility] [address] [place] [address] Potassium [Moles/Vol] 3.9 mmol/L Normal 3.4-4.9 [facility] Comment on above: Performed By: #### L IPAS #### [facility] [address] [place] [address] Sodium [Moles/Vol] 141 mmol/L Normal 135-144 [facility] Comment on above: Performed By: #### L IPAS #### [facility] [address] [place] [address] Urea nitrogen [Mass/Vol] 14 mg/dL Normal 6-20 [facility] Comment on above: Performed By: #### L IPAS #### [facility] [address] [place] [address] CBC With Platelet and Differ entialon 12-03-2022 Basophils (Bld) [#/Vol] 0.0 10*3/uL Normal 0.0-0.2 [facility] Comment on above: Performed By: #### C BCWD #### [facility] [address] [place] [address] Basophils/100 WBC (Bld) 0.9 % Normal [facility] Comment on above: Performed By: #### C BCWD #### [facility] [address] [place] [address] Eosinophils (Bld) [#/Vol] 0.2 10*3/uL Normal 0.0-0.7 [facility] Comment on above: Performed By: #### C BCWD #### [facility] [address] [place] [address] Eosinophils/100 WBC (Bld) 5.2 % Normal [facility] Comment on above: Performed By: #### C BCWD #### [facility] [address] [place] [address] Erythrocyte distribution width (RBC) [Ratio] 13.2 % Normal 11.5-14.5 [facility] Comment on above: Performed By: #### C BCWD #### [facility] [address] [place] [address] Hematocrit (Bld) [Volume fraction] 35.9 % Low 37.0-47.0 [facility] Comment on above: Performed By: #### C BCWD #### [facility] [address] [place] [address] Hemoglobin (Bld) [Mass/Vol] 12.3 g/dL Normal 12.0-16.0 [facility] Comment on above: Performed By: #### C BCWD #### [facility] [address] [place] [address] Lymphocytes (Bld) [#/Vol] 1.3 10*3/uL Normal 1.0-4.8 [facility] Comment on above: Performed By: #### C BCWD #### [facility] [address] [place] [address] Lymphocytes/100 WBC (Bld) 38.2 % Normal [facility] Comment on above: Performed By: #### C BCWD #### [facility] [address] [place] [address] MCH (RBC) [Entitic mass] 30.8 pg Normal 27.0-31.3 [facility] Comment on above: Performed By: #### C BCWD #### [facility] [address] [place] [address] MCHC 34.3 % Normal 33.0-37.0 [facility] Comment on above: Performed By: #### C BCWD #### [facility] [address] [place] [address] MCV (RBC) [Entitic vol] 89.8 fL Normal 79.4-94.8 [facility] Comment on above: Performed By: #### C BCWD #### [facility] [address] [place] [address] Monocytes (Bld) [#/Vol] 0.4 10*3/uL Normal 0.2-0.8 [facility] Comment on above: Performed By: #### C BCWD #### [facility] [address] [place] [address] Monocytes/100 WBC (Bld) 10.9 % Normal [facility] Comment on above: Performed By: #### C BCWD #### [facility] [address] [place] [address] Neutrophils (Bld) [#/Vol] 1.5 10*3/uL Normal 1.4-6.5 [facility] Comment on above: Performed By: #### C BCWD #### [facility] [address] [place] [address] Neutrophils/100 WBC (Bld) 44.5 % Normal [facility] Comment on above: Performed By: #### C BCWD #### [facility] [address] [place] [address] Platelets (Bld) [#/Vol] 204 10*3/uL Normal 130-400 [facility] Comment on above: Performed By: #### C BCWD #### [facility] [address] [place] [address] RBC (Bld) [#/Vol] 4.00 10*6/uL Low 4.20-5.40 [facility] Comment on above: Performed By: #### C BCWD #### [facility] [address] [place] [address] WBC (Bld) [#/Vol] 3.3 10*3/uL Low 4.8-10.8 [facility] Comment on above: Performed By: #### C BCWD #### [facility] [address] [place] [address] Basophils (Bld) [#/Vol] 0.0 10*3/uL Normal 0.0-0.2 [facility] Comment on above: Performed By: #### P GLU #### [facility] [address] [place] [address] Basophils/100 WBC (Bld) 0.7 % Normal [facility] Comment on above: Performed By: #### P GLU #### [facility] [address] [place] [address] Eosinophils (Bld) [#/Vol] 0.2 10*3/uL Normal 0.0-0.7 [facility] Comment on above: Performed By: #### P GLU #### [facility] [address] [place] [address] Eosinophils/100 WBC (Bld) 5.9 % Normal [facility] Comment on above: Performed By: #### P GLU #### [facility] [address] [place] [address] Erythrocyte distribution width (RBC) [Ratio] 13.5 % Normal 11.5-14.5 [facility] Comment on above: Performed By: #### P GLU #### [facility] [address] [place] [address] Hematocrit (Bld) [Volume fraction] 33.2 % Low 37.0-47.0 [facility] Comment on above: Performed By: #### P GLU #### [facility] [address] [place] [address] Hemoglobin (Bld) [Mass/Vol] 11.8 g/dL Low 12.0-16.0 [facility] Comment on above: Performed By: #### P GLU #### [facility] [address] [place] [address] Lymphocytes (Bld) [#/Vol] 1.1 10*3/uL Normal 1.0-4.8 [facility] Comment on above: Performed By: #### P GLU #### [facility] [address] [place] [address] Lymphocytes/100 WBC (Bld) 39.5 % Normal [facility] Comment on above: Performed By: #### P GLU #### [facility] [address] [place] [address] MCH (RBC) [Entitic mass] 34.0 pg Critically high 27.0-31.3 [facility] Comment on above: Performed By: #### P GLU #### [facility] [address] [place] [address] MCHC 35.5 % Normal 33.0-37.0 [facility] Comment on above: Performed By: #### P GLU #### [facility] [address] [place] [address] MCV (RBC) [Entitic vol] 95.7 fL Critically high 79.4-94.8 [facility] Comment on above: Performed By: #### P GLU #### [facility] [address] [place] [address] Monocytes (Bld) [#/Vol] 0.3 10*3/uL Normal 0.2-0.8 [facility] Comment on above: Performed By: #### P GLU #### [facility] [address] [place] [address] Monocytes/100 WBC (Bld) 9.1 % Normal [facility] Comment on above: Performed By: #### P GLU #### [facility] [address] [place] [address] Neutrophils (Bld) [#/Vol] 1.3 10*3/uL Low 1.4-6.5 [facility] Comment on above: Performed By: #### P GLU #### [facility] [address] [place] [address] Neutrophils/100 WBC (Bld) 44.5 % Normal [facility] Comment on above: Performed By: #### P GLU #### [facility] [address] [place] [address] Platelets (Bld) [#/Vol] 186 10*3/uL Normal 130-400 [facility] Comment on above: Performed By: #### P GLU #### [facility] [address] [place] [address] RBC (Bld) [#/Vol] 3.47 10*6/uL Low 4.20-5.40 [facility] Comment on above: Performed By: #### P GLU #### [facility] [address] [place] [address] WBC (Bld) [#/Vol] 2.9 10*3/uL Low 4.8-10.8 [facility] Comment on above: Performed By: #### P GLU #### [facility] [address] [place] [address] CNPNon 12-03-2022 CNPN Normal [facility] Magnesiumon 12-03-2022 Magnesium [Mass/Vol] 1.8 mg/dL Normal 1.7-2.4 [facility] Comment on above: Performed By: #### L IPAS #### [facility] [address] [place] [address] POCT Glucoseon 12-03-2022 Glucose [Mass/Vol] 90 mg/dL Normal 70-99 [facility] Comment on above: Performed By: #### P GLU #### [facility] [address] [place] [address] POC Performed on ACCU-CHEK Normal [facility] Comment on above: Performed By: #### P GLU #### [facility] [address] [place] [address] Glucose [Mass/Vol] 101 mg/dL Critically high 70-99 [facility] Comment on above: Performed By: #### L IPAS #### [facility] [address] [place] [address] POC Performed on ACCU-CHEK Normal [facility] Comment on above: Performed By: #### L IPAS #### [facility] [address] [place] [address] Phosphoruson 12-03-2022 Phosphate [Mass/Vol] 3.6 mg/dL Normal 2.3-4.8 [facility] Comment on above: Performed By: #### L IPAS #### [facility] [address] [place] [address] Basic Metabolic Panelon 11-15 Anion gap [Moles/Vol] 6 mmol/L Low 9-15 [facility] Comment on above: Performed By: #### C BCWD #### [facility] [address] [place] [address] Calcium [Mass/Vol] 8.4 mg/dL Low 8.5-9.9 [facility] Comment on above: Performed By: #### C BCWD #### [facility] [address] [place] [address] Chloride [Moles/Vol] 107 mmol/L Normal 95-107 [facility] Comment on above: Performed By: #### C BCWD #### [facility] [address] [place] [address] CO2 [Moles/Vol] 25 mmol/L Normal 20-31 [facility] Comment on above: Performed By: #### C BCWD #### [facility] [address] [place] [address] Creatinine [Mass/Vol] 0.57 mg/dL Normal 0.50-0.90 [facility] Comment on above: Performed By: #### C BCWD #### [facility] [address] [place] [address] GFR >60.0 Normal >60 [facility] Comment on above: Result Comment: Adán atric [...] secretion. Performed By: #### C BCWD #### [facility] [address] [place] [address] Glucose [Mass/Vol] 104 mg/dL Critically high 70-99 [facility] Comment on above: Performed By: #### C BCWD #### [facility] [address] [place] [address] Potassium [Moles/Vol] 4.0 mmol/L Normal 3.4-4.9 [facility] Comment on above: Performed By: #### C BCWD #### [facility] [address] [place] [address] Sodium [Moles/Vol] 138 mmol/L Normal 135-144 [facility] Comment on above: Performed By: #### C BCWD #### [facility] [address] [place] [address] Urea nitrogen [Mass/Vol] 12 mg/dL Normal 6-20 [facility] Comment on above: Performed By: #### C BCWD #### [facility] [address] [place] [address] CBC With Platelet and Differ entialon 12-02-2022 Anisocytosis Ql (Bld) 1+ Normal [facility] Comment on above: Performed By: #### C BCWD #### [facility] [address] [place] [address] Basophils (Bld) [#/Vol] 0.0 10*3/uL Normal 0.0-0.2 [facility] Comment on above: Performed By: #### C BCWD #### [facility] [address] [place] [address] Basophils/100 WBC (Bld) 1.0 % Normal [facility] Comment on above: Performed By: #### C BCWD #### [facility] [address] [place] [address] Eosinophils (Bld) [#/Vol] 0.2 10*3/uL Normal 0.0-0.7 [facility] Comment on above: Performed By: #### C BCWD #### [facility] [address] [place] [address] Eosinophils/100 WBC (Bld) 9.0 % Normal [facility] Comment on above: Performed By: #### C BCWD #### [facility] [address] [place] [address] Lymphocytes (Bld) [#/Vol] 0.9 10*3/uL Low 1.0-4.8 [facility] Comment on above: Performed By: #### C BCWD #### [facility] [address] [place] [address] Lymphocytes/100 WBC (Bld) 35.0 % Normal [facility] Comment on above: Performed By: #### C BCWD #### [facility] [address] [place] [address] Monocytes (Bld) [#/Vol] 0.1 10*3/uL Low 0.2-0.8 [facility] Comment on above: Performed By: #### C BCWD #### [facility] [address] [place] [address] Monocytes/100 WBC (Bld) 4.6 % Normal [facility] Comment on above: Performed By: #### C BCWD #### [facility] [address] [place] [address] Neutrophils (Bld) [#/Vol] 1.4 10*3/uL Normal 1.4-6.5 [facility] Comment on above: Performed By: #### C BCWD #### [facility] [address] [place] [address] Neutrophils/100 WBC (Bld) 50.0 % Normal [facility] Comment on above: Performed By: #### C BCWD #### [facility] [address] [place] [address] Ovalocytes 1+ Normal [facility] Comment on above: Performed By: #### C BCWD #### [facility] [address] [place] [address] Poikilocytosis 1+ Normal [facility] Comment on above: Performed By: #### C BCWD #### [facility] [address] [place] [address] Erythrocyte distribution width (RBC) [Ratio] 13.3 % Normal 11.5-14.5 [facility] Comment on above: Performed By: #### C BCWD #### [facility] [address] [place] [address] Hematocrit (Bld) [Volume fraction] 34.0 % Low 37.0-47.0 [facility] Comment on above: Performed By: #### C BCWD #### [facility] [address] [place] [address] Hemoglobin (Bld) [Mass/Vol] 11.8 g/dL Low 12.0-16.0 [facility] Comment on above: Performed By: #### C BCWD #### [facility] [address] [place] [address] MCH (RBC) [Entitic mass] 31.3 pg Normal 27.0-31.3 [facility] Comment on above: Performed By: #### C BCWD #### [facility] [address] [place] [address] MCHC 34.7 % Normal 33.0-37.0 [facility] Comment on above: Performed By: #### C BCWD #### [facility] [address] [place] [address] MCV (RBC) [Entitic vol] 90.2 fL Normal 79.4-94.8 [facility] Comment on above: Performed By: #### C BCWD #### [facility] [address] [place] [address] Platelets (Bld) [#/Vol] 201 10*3/uL Normal 130-400 [facility] Comment on above: Performed By: #### C BCWD #### [facility] [address] [place] [address] RBC (Bld) [#/Vol] 3.77 10*6/uL Low 4.20-5.40 [facility] Comment on above: Performed By: #### C BCWD #### [facility] [address] [place] [address] WBC (Bld) [#/Vol] 2.7 10*3/uL Low 4.8-10.8 [facility] Comment on above: Performed By: #### C BCWD #### [facility] [address] [place] [address] Magnesiumon 12-02-2022 Magnesium [Mass/Vol] 1.9 mg/dL Normal 1.7-2.4 [facility] Comment on above: Performed By: #### C BCWD #### [facility] [address] [place] [address] POCT Glucoseon 12-02-2022 Glucose [Mass/Vol] 115 mg/dL Critically high 70-99 [facility] Comment on above: Performed By: #### P GLU #### [facility] [address] [place] [address] POC Performed on ACCU-CHEK Normal [facility] Comment on above: Performed By: #### P GLU #### [facility] [address] [place] [address] Glucose [Mass/Vol] 94 mg/dL Normal 70-99 [facility] Comment on above: Performed By: #### P GLU #### [facility] [address] [place] [address] POC Performed on ACCU-CHEK Normal [facility] Comment on above: Performed By: #### P GLU #### [facility] [address] [place] [address] Glucose [Mass/Vol] 94 mg/dL Normal 70-99 [facility] Comment on above: Performed By: #### P GLU #### [facility] [address] [place] [address] POC Performed on ACCU-CHEK Normal [facility] Comment on above: Performed By: #### P GLU #### [facility] [address] [place] [address] Phosphoruson 12-02-2022 Phosphate [Mass/Vol] 3.7 mg/dL Normal 2.3-4.8 [facility] Comment on above: Performed By: #### P GLU #### [facility] [address] [place] [address] CNPNon 12-01-2022 CNPN Normal [facility] Metabolic Pane nestor 12-01-2022 Albumin [Mass/Vol] 3.7 g/dL Normal 3.5-4.6 [facility] Comment on above: Performed By: #### C BCWD #### [facility] [address] [place] [address] ALP [Catalytic activity/Vol] 62 U/L Normal 40-130 [facility] Comment on above: Performed By: #### C BCWD #### [facility] [address] [place] [address] ALT [Catalytic activity/Vol] 16 U/L Normal 0-33 [facility] Comment on above: Performed By: #### C BCWD #### [facility] [address] [place] [address] Anion gap [Moles/Vol] 7 mmol/L Low 9-15 [facility] Comment on above: Performed By: #### C BCWD #### [facility] [address] [place] [address] AST [Catalytic activity/Vol] 30 U/L Normal 0-35 [facility] Comment on above: Performed By: #### C BCWD #### [facility] [address] [place] [address] Bilirubin [Mass/Vol] 0.3 mg/dL Normal 0.2-0.7 [facility] Comment on above: Performed By: #### C BCWD #### [facility] [address] [place] [address] Calcium [Mass/Vol] 8.3 mg/dL Low 8.5-9.9 [facility] Comment on above: Performed By: #### C BCWD #### [facility] [address] [place] [address] Chloride [Moles/Vol] 106 mmol/L Normal 95-107 [facility] Comment on above: Performed By: #### C BCWD #### [facility] [address] [place] [address] CO2 [Moles/Vol] 23 mmol/L Normal 20-31 [facility] Comment on above: Performed By: #### C BCWD #### [facility] [address] [place] [address] Creatinine [Mass/Vol] 0.66 mg/dL Normal 0.50-0.90 [facility] Comment on above: Performed By: #### C BCWD #### [facility] [address] [place] [address] GFR >60.0 Normal >60 [facility] Comment on above: Result Comment: Pedi atric [...] secretion. Performed By: #### C BCWD #### [facility] [address] [place] [address] Globulin (S) [Mass/Vol] 2.1 g/dL Low 2.3-3.5 [facility] Comment on above: Performed By: #### C BCWD #### [facility] [address] [place] [address] Glucose [Mass/Vol] 104 mg/dL Critically high 70-99 [facility] Comment on above: Performed By: #### C BCWD #### [facility] [address] [place] [address] Potassium [Moles/Vol] 3.9 mmol/L Normal 3.4-4.9 [facility] Comment on above: Performed By: #### C BCWD #### [facility] [address] [place] [address] Protein [Mass/Vol] 5.8 g/dL Low 6.3-8.0 [facility] Comment on above: Performed By: #### C BCWD #### [facility] [address] [place] [address] Sodium [Moles/Vol] 136 mmol/L Normal 135-144 [facility] Comment on above: Performed By: #### C BCWD #### [facility] [address] [place] [address] Urea nitrogen [Mass/Vol] 6 mg/dL Normal 6-20 [facility] Comment on above: Performed By: #### C BCWD #### [facility] [address] [place] [address] Magnesiumon 12-01-2022 Magnesium [Mass/Vol] 2.0 mg/dL Normal 1.7-2.4 [facility] Comment on above: Performed By: #### C BCWD #### [facility] [address] [place] [address] POCT Glucoseon 12-01-2022 Glucose [Mass/Vol] 113 mg/dL Critically high 70-99 [facility] Comment on above: Performed By: #### P GLU #### [facility] [address] [place] [address] POC Performed on ACCU-CHEK Normal [facility] Comment on above: Result Comment: Robby meneses RN or MD Performed By: #### P GLU #### [facility] [address] [place] [address] Phosphoruson 12-01-2022 Phosphate [Mass/Vol] 3.7 mg/dL Normal 2.3-4.8 [facility] Comment on above: Performed By: #### P GLU #### [facility] [address] [place] [address] Triglycerideson 12-01-2022 Triglyceride [Mass/Vol] 111 mg/dL Normal 0-150 [facility] Comment on above: Result Comment: ATP III Triglycerides Classification is Normal. Performed By: #### T RIG #### [facility] [address] [place] [address] Comprehensive Metabolic Pane nestor 11-30-2022 Albumin [Mass/Vol] 3.5 g/dL Normal 3.5-4.6 [facility] Comment on above: Performed By: #### C BCWD #### [facility] [address] [place] [address] ALP [Catalytic activity/Vol] 45 U/L Normal 40-130 [facility] Comment on above: Performed By: #### C BCWD #### [facility] [address] [place] [address] ALT [Catalytic activity/Vol] 15 U/L Normal 0-33 [facility] Comment on above: Result Comment: Spec imen hemolysis has exceeded the interference as defined by Kamran. Result may be affected. Suggest recollection if clinically indicated. Performed By: #### C BCWD #### [facility] [address] [place] [address] Anion gap [Moles/Vol] 6 mmol/L Low 9-15 [facility] Comment on above: Performed By: #### C BCWD #### [facility] [address] [place] [address] AST [Catalytic activity/Vol] 40 U/L Critically high 0-35 [facility] Comment on above: Result Comment: Spec imen hemolysis has exceeded the interference as defined by Kamran. Value may be falsely increased. Suggest recollection if clinically indicated. Performed By: #### C BCWD #### [facility] [address] [place] [address] Bilirubin [Mass/Vol] 0.3 mg/dL Normal 0.2-0.7 [facility] Comment on above: Performed By: #### C BCWD #### [facility] [address] [place] [address] Calcium [Mass/Vol] 8.3 mg/dL Low 8.5-9.9 [facility] Comment on above: Performed By: #### C BCWD #### [facility] [address] [place] [address] Chloride [Moles/Vol] 107 mmol/L Normal 95-107 [facility] Comment on above: Performed By: #### C BCWD #### [facility] [address] [place] [address] CO2 [Moles/Vol] 23 mmol/L Normal 20-31 [facility] Comment on above: Performed By: #### C BCWD #### [facility] [address] [place] [address] Creatinine [Mass/Vol] 0.69 mg/dL Normal 0.50-0.90 [facility] Comment on above: Performed By: #### C BCWD #### [facility] [address] [place] [address] GFR >60.0 Normal >60 [facility] Comment on above: Result Comment: Adán atric [...] secretion. Performed By: #### C BCWD #### [facility] [address] [place] [address] Globulin (S) [Mass/Vol] 1.9 g/dL Low 2.3-3.5 [facility] Comment on above: Performed By: #### C BCWD #### [facility] [address] [place] [address] Glucose [Mass/Vol] 86 mg/dL Normal 70-99 [facility] Comment on above: Performed By: #### C BCWD #### [facility] [address] [place] [address] Potassium [Moles/Vol] 4.6 mmol/L Normal 3.4-4.9 [facility] Comment on above: Result Comment: Spec imen hemolysis has exceeded the interference as defined by Kamran. Value may be falsely increased. Suggest recollection if clinically indicated. Performed By: #### C BCWD #### [facility] [address] [place] [address] Protein [Mass/Vol] 5.4 g/dL Low 6.3-8.0 [facility] Comment on above: Performed By: #### C BCWD #### [facility] [address] [place] [address] Sodium [Moles/Vol] 136 mmol/L Normal 135-144 [facility] Comment on above: Performed By: #### C BCWD #### [facility] [address] [place] [address] Urea nitrogen [Mass/Vol] 4 mg/dL Low 6-20 [facility] Comment on above: Performed By: #### C BCWD #### [facility] [address] [place] [address] IR PICC WO SQ PORT/PUMP > 5 [...] caps and surgical masks. In addition, the gear grinding machine operator and project assistant donned sterile gowns and gloves after proper hand cleansing. A pre-procedure time out was performed in order to assure the correct patient and procedure. Local anesthetic was administered. A peripheral vein was accessed with sonographic guidance. A sonographic spot image was obtained for documentation. A guidewire was advanced into the vein with fluoroscopic guidance and a sheath was placed over the guidewire. A 5-Green[place]ic dual-lumen PICC was advanced through the sheath, [...] Cedrick Billings MD 11/30/22 Final result Normal [facility] Magnesiumon 11-30-2022 Magnesium [Mass/Vol] 1.9 mg/dL Normal 1.7-2.4 [facility] Comment on above: Performed By: #### P GLU #### [facility] [address] [place] [id number] Phosphoruson 11-30-2022 Phosphate [Mass/Vol] 3.2 mg/dL Normal 2.3-4.8 [facility] Comment on above: Performed By: #### C BCWD #### [facility] [address] [place] [address] CBC With Platelet and Differ entialon 11-29-2022 Basophils (Bld) [#/Vol] 0.0 10*3/uL Normal 0.0-0.2 [facility] Comment on above: Performed By: #### P GLU #### [facility] [address] [place] [address] Basophils/100 WBC (Bld) 0.6 % Normal [facility] Comment on above: Performed By: #### P GLU #### [facility] [address] [place] [address] Eosinophils (Bld) [#/Vol] 0.1 10*3/uL Normal 0.0-0.7 [facility] Comment on above: Performed By: #### P GLU #### [facility] [address] [place] [address] Eosinophils/100 WBC (Bld) 4.4 % Normal [facility] Comment on above: Performed By: #### P GLU #### [facility] [address] [place] [address] Erythrocyte distribution width (RBC) [Ratio] 13.6 % Normal 11.5-14.5 [facility] Comment on above: Performed By: #### P GLU #### [facility] [address] [place] [address] Hematocrit (Bld) [Volume fraction] 36.4 % Low 37.0-47.0 [facility] Comment on above: Performed By: #### P GLU #### [facility] [address] [place] [address] Hemoglobin (Bld) [Mass/Vol] 12.2 g/dL Normal 12.0-16.0 [facility] Comment on above: Performed By: #### P GLU #### [facility] [address] [place] [address] Lymphocytes (Bld) [#/Vol] 1.3 10*3/uL Normal 1.0-4.8 [facility] Comment on above: Performed By: #### P GLU #### [facility] [address] [place] [address] Lymphocytes/100 WBC (Bld) 41.0 % Normal [facility] Comment on above: Performed By: #### P GLU #### [facility] [address] [place] [address] MCH (RBC) [Entitic mass] 30.9 pg Normal 27.0-31.3 [facility] Comment on above: Performed By: #### P GLU #### [facility] [address] [place] [address] MCHC 33.5 % Normal 33.0-37.0 [facility] Comment on above: Performed By: #### P GLU #### [facility] [address] [place] [address] MCV (RBC) [Entitic vol] 92.2 fL Normal 79.4-94.8 [facility] Comment on above: Performed By: #### P GLU #### [facility] [address] [place] [address] Monocytes (Bld) [#/Vol] 0.3 10*3/uL Normal 0.2-0.8 [facility] Comment on above: Performed By: #### P GLU #### [facility] [address] [place] [address] Monocytes/100 WBC (Bld) 9.8 % Normal [facility] Comment on above: Performed By: #### P GLU #### [facility] [address] [place] [address] Neutrophils (Bld) [#/Vol] 1.4 10*3/uL Normal 1.4-6.5 [facility] Comment on above: Performed By: #### P GLU #### [facility] [address] [place] [address] Neutrophils/100 WBC (Bld) 44.2 % Normal [facility] Comment on above: Performed By: #### P GLU #### [facility] [address] [place] [address] Platelets (Bld) [#/Vol] 242 10*3/uL Normal 130-400 [facility] Comment on above: Performed By: #### P GLU #### [facility] [address] [place] [address] RBC (Bld) [#/Vol] 3.95 10*6/uL Low 4.20-5.40 [facility] Comment on above: Performed By: #### P GLU #### [facility] [address] [place] [address] WBC (Bld) [#/Vol] 3.2 10*3/uL Low 4.8-10.8 [facility] Comment on above: Performed By: #### P GLU #### [facility] [address] [place] [address] Comprehensive Metabolic Pane nestor 11-29-2022 Albumin [Mass/Vol] 3.5 g/dL Normal 3.5-4.6 [facility] Comment on above: Performed By: #### P GLU #### [facility] [address] [place] [address] ALP [Catalytic activity/Vol] 60 U/L Normal 40-130 [facility] Comment on above: Performed By: #### P GLU #### [facility] [address] [place] [address] ALT [Catalytic activity/Vol] 15 U/L Normal 0-33 [facility] Comment on above: Performed By: #### P GLU #### [facility] [address] [place] [address] Anion gap [Moles/Vol] 8 mmol/L Low 9-15 [facility] Comment on above: Performed By: #### P GLU #### [facility] [address] [place] [address] AST [Catalytic activity/Vol] 28 U/L Normal 0-35 [facility] Comment on above: Performed By: #### P GLU #### [facility] [address] [place] [address] Bilirubin [Mass/Vol] mg/dL Normal 0.2-0.7 [facility] Comment on above: Performed By: #### P GLU #### [facility] [address] [place] [address] Calcium [Mass/Vol] 8.4 mg/dL Low 8.5-9.9 [facility] Comment on above: Performed By: #### P GLU #### [facility] [address] [place] [address] Chloride [Moles/Vol] 113 mmol/L Critically high 95-107 [facility] Comment on above: Performed By: #### P GLU #### [facility] [address] [place] [address] CO2 [Moles/Vol] 23 mmol/L Normal 20-31 [facility] Comment on above: Performed By: #### P GLU #### [facility] [address] [place] [address] Creatinine [Mass/Vol] 0.71 mg/dL Normal 0.50-0.90 [facility] Comment on above: Performed By: #### P GLU #### [facility] [address] [place] [address] GFR >60.0 Normal >60 [facility] Comment on above: Result Comment: Pedi atric [...] secretion. Performed By: #### P GLU #### [facility] [address] [place] [address] Globulin (S) [Mass/Vol] 2.2 g/dL Low 2.3-3.5 [facility] Comment on above: Performed By: #### P GLU #### [facility] [address] [place] [address] Glucose [Mass/Vol] 85 mg/dL Normal 70-99 [facility] Comment on above: Performed By: #### P GLU #### [facility] [address] [place] [address] Potassium [Moles/Vol] 4.2 mmol/L Normal 3.4-4.9 [facility] Comment on above: Performed By: #### P GLU #### [facility] [address] [place] [address] Protein [Mass/Vol] 5.7 g/dL Low 6.3-8.0 [facility] Comment on above: Performed By: #### P GLU #### [facility] [address] [place] [address] Sodium [Moles/Vol] 144 mmol/L Normal 135-144 [facility] Comment on above: Performed By: #### P GLU #### [facility] [address] [place] [address] Urea nitrogen [Mass/Vol] 5 mg/dL Low 6-20 [facility] Comment on above: Performed By: #### P GLU #### [facility] [address] [place] [address] Lactic Acidon 11-29-2022 Lactate [Moles/Vol] 0.9 mmol/L Normal 0.5-2.2 [facility] Comment on above: Performed By: #### L IPAS #### [facility] [address] [place] [address] Lipaseon 11-29-2022 Lipase [Catalytic activity/Vol] 48 U/L Normal 12-95 [facility] Comment on above: Performed By: #### L IPAS #### [facility] [address] [place] [address] Magnesiumon 11-29-2022 Magnesium [Mass/Vol] 1.9 mg/dL Normal 1.7-2.4 [facility] Comment on above: Performed By: #### P GLU #### [facility] [address] [place] [address] Partial Thromboplastin Timeo n 11-29-2022 aPTT Coag (Bld) [Time] 33.0 s Normal 24.4-36.8 [facility] Comment on above: Result Comment: Effe ctive 12/20/2019: Heparin Therapeutic Range: 64.0 ? 98.0 seconds. Performed By: #### C BCWD #### [facility] [address] [place] [address] Phosphoruson 11-29-2022 Phosphate [Mass/Vol] 3.3 mg/dL Normal 2.3-4.8 [facility] Comment on above: Performed By: #### C BCWD #### [facility] [address] [place] [address] Prothrombin Timeon INR Coag (PPP) [Relative time] 1.2 {INR} Normal [facility] Comment on above: Performed By: #### P T #### [facility] [address] [place] [address] PT Coag (PPP) [Time] 15.6 s Critically high 12.3-14.9 [facility] Comment on above: Performed By: #### P T #### [facility] [address] [place] [address] Prealbuminon 11-28-2022 Prealbumin [Mass/Vol] 15.0 mg/dL Low 20.0-40.0 [facility] Comment on above: Order Comment: Colle ction has been rescheduled by DUEAS at 11/28/2022 18:15 Reason:Failed attempt at venipuncture Performed By: #### L IPAS #### [facility] [address] [place] [address] Amylaseon 11-27-2022 Amylase [Catalytic activity/Vol] 44 U/L Normal 22-93 [facility] Comment on above: Performed By: #### P GLU #### [facility] [address] [place] [address] CBC With Platelet and Differ entialon 11-27-2022 Basophils (Bld) [#/Vol] 0.0 10*3/uL Normal 0.0-0.2 [facility] Comment on above: Performed By: #### P GLU #### [facility] [address] [place] [address] Basophils/100 WBC (Bld) 0.7 % Normal [facility] Comment on above: Performed By: #### P GLU #### [facility] [address] [place] [address] Eosinophils (Bld) [#/Vol] 0.1 10*3/uL Normal 0.0-0.7 [facility] Comment on above: Performed By: #### P GLU #### [facility] [address] [place] [address] Eosinophils/100 WBC (Bld) 1.4 % Normal [facility] Comment on above: Performed By: #### P GLU #### [facility] [address] [place] [address] Erythrocyte distribution width (RBC) [Ratio] 13.3 % Normal 11.5-14.5 [facility] Comment on above: Performed By: #### P GLU #### [facility] [address] [place] [address] Hematocrit (Bld) [Volume fraction] 38.0 % Normal 37.0-47.0 [facility] Comment on above: Performed By: #### P GLU #### [facility] [address] [place] [address] Hemoglobin (Bld) [Mass/Vol] 12.7 g/dL Normal 12.0-16.0 [facility] Comment on above: Performed By: #### P GLU #### [facility] [address] [place] [address] Lymphocytes (Bld) [#/Vol] 1.4 10*3/uL Normal 1.0-4.8 [facility] Comment on above: Performed By: #### P GLU #### [facility] [address] [place] [address] Lymphocytes/100 WBC (Bld) 32.1 % Normal [facility] Comment on above: Performed By: #### P GLU #### [facility] [address] [place] [address] MCH (RBC) [Entitic mass] 30.6 pg Normal 27.0-31.3 [facility] Comment on above: Performed By: #### P GLU #### [facility] [address] [place] [address] MCHC 33.4 % Normal 33.0-37.0 [facility] Comment on above: Performed By: #### P GLU #### [facility] [address] [place] [address] MCV (RBC) [Entitic vol] 91.6 fL Normal 79.4-94.8 [facility] Comment on above: Performed By: #### P GLU #### [facility] [address] [place] [address] Monocytes (Bld) [#/Vol] 0.3 10*3/uL Normal 0.2-0.8 [facility] Comment on above: Performed By: #### P GLU #### [facility] [address] [place] [address] Monocytes/100 WBC (Bld) 6.0 % Normal [facility] Comment on above: Performed By: #### P GLU #### [facility] [address] [place] [address] Neutrophils (Bld) [#/Vol] 2.6 10*3/uL Normal 1.4-6.5 [facility] Comment on above: Performed By: #### P GLU #### [facility] [address] [place] [address] Neutrophils/100 WBC (Bld) 59.6 % Normal [facility] Comment on above: Performed By: #### P GLU #### [facility] [address] [place] [address] Platelets (Bld) [#/Vol] 238 10*3/uL Normal 130-400 [facility] Comment on above: Performed By: #### P GLU #### [facility] [address] [place] [address] RBC (Bld) [#/Vol] 4.15 10*6/uL Low 4.20-5.40 [facility] Comment on above: Performed By: #### P GLU #### [facility] [address] [place] [address] WBC (Bld) [#/Vol] 4.4 10*3/uL Low 4.8-10.8 [facility] Comment on above: Performed By: #### P GLU #### [facility] [address] [place] [address] [address] ABDOMEN PELVIS W IV CONTR Daljit [...] not a suspected or confirmed emergency medical condition->Emergenc y Medical Condition ([place]) What reading provider will [...] contrast enhancement for the liver. Multifocal hypodense/no enhancing/hypoenhan cing lesions are present in the liver, they [...] is no renal calculus. There is normal cortical/parenchyma l enhancement for the kidneys. The bladder is [...] Iker Ayala MD 11/27/22 Final result Normal [facility] CTA CHEST W WO CONTRASTon CTA CHEST [...] not a suspected or confirmed emergency medical condition->Emergenc y Medical Condition ([place]) What reading provider will be dictating this exam?->CRC FINDINGS: The right lung parenchyma shows no focal parenchymal abnormalities no pleural effusions. No pneumothoraces. The left lung parenchyma shows no focal parenchymal abnormalities no pleural. No pneumothoraces The heart great vessels are intact. No aortic dissection. No significant periaortic, pretracheal, parahilar or subcarinal adenopathy. No gross central, proximal or proximal-subsegment al pulmonary emboli. In the field of view [...] Jason Mcrae MD 11/27/22 Final result Normal [facility] Comprehensive Metabolic Pane nestor 11-27-2022 Albumin [Mass/Vol] 4.0 g/dL Normal 3.5-4.6 [facility] Comment on above: Performed By: #### P GLU #### [facility] [address] [place] [address] ALP [Catalytic activity/Vol] 60 U/L Normal 40-130 [facility] Comment on above: Performed By: #### P GLU #### [facility] [address] [place] [address] ALT [Catalytic activity/Vol] 20 U/L Normal 0-33 [facility] Comment on above: Performed By: #### P GLU #### [facility] [address] [place] [address] Anion gap [Moles/Vol] 10 mmol/L Normal 9-15 [facility] Comment on above: Performed By: #### P GLU #### [facility] [address] [place] [address] AST [Catalytic activity/Vol] 34 U/L Normal 0-35 [facility] Comment on above: Performed By: #### P GLU #### [facility] [address] [place] [address] Bilirubin [Mass/Vol] 0.4 mg/dL Normal 0.2-0.7 [facility] Comment on above: Performed By: #### P GLU #### [facility] [address] [place] [address] Calcium [Mass/Vol] 8.4 mg/dL Low 8.5-9.9 [facility] Comment on above: Performed By: #### P GLU #### [facility] [address] [place] [address] Chloride [Moles/Vol] 108 mmol/L Critically high 95-107 [facility] Comment on above: Performed By: #### P GLU #### [facility] [address] [place] [address] CO2 [Moles/Vol] 20 mmol/L Normal 20-31 [facility] Comment on above: Performed By: #### P GLU #### [facility] [address] [place] [address] Creatinine [Mass/Vol] 0.68 mg/dL Normal 0.50-0.90 [facility] Comment on above: Performed By: #### P GLU #### [facility] [address] [place] [address] GFR >60.0 Normal >60 [facility] Comment on above: Result Comment: Adán atric [...] secretion. Performed By: #### P GLU #### [facility] [address] [place] [address] Globulin (S) [Mass/Vol] 2.3 g/dL Normal 2.3-3.5 [facility] Comment on above: Performed By: #### P GLU #### [facility] [address] [place] [address] Glucose [Mass/Vol] 82 mg/dL Normal 70-99 [facility] Comment on above: Performed By: #### P GLU #### [facility] [address] [place] [address] Potassium [Moles/Vol] 3.7 mmol/L Normal 3.4-4.9 [facility] Comment on above: Performed By: #### P GLU #### [facility] [address] [place] [address] Protein [Mass/Vol] 6.3 g/dL Normal 6.3-8.0 [facility] Comment on above: Performed By: #### P GLU #### [facility] [address] [place] [address] Sodium [Moles/Vol] 138 mmol/L Normal 135-144 [facility] Comment on above: Performed By: #### P GLU #### [facility] [address] [place] [address] Urea nitrogen [Mass/Vol] 8 mg/dL Normal 6-20 [facility] Comment on above: Performed By: #### P GLU #### [facility] [address] [place] [address] High Sensitivity Troponin To n 11-27-2022 High Sensitivity Troponin T <6 Normal 0-19 [facility] Comment on above: Result Comment: High Sensitivity Troponin values cannot be compared with other Troponin methodologies. Performed By: #### T RP5 #### [facility] [address] [place] [address] High Sensitivity Troponin T <6 Normal 0-19 [facility] Comment on above: Result Comment: High Sensitivity Troponin values cannot be compared with other Troponin methodologies. Performed By: #### P GLU #### [facility] [address] [place] [address] Lactic Acidon 11-27-2022 Lactate [Moles/Vol] 1.0 mmol/L Normal 0.5-2.2 [facility] Comment on above: Performed By: #### P GLU #### [facility] [address] [place] [address] Lipaseon 11-27-2022 Lipase [Catalytic activity/Vol] 37 U/L Normal 12-95 [facility] Comment on above: Performed By: #### P GLU #### [facility] [address] [place] [address] Magnesiumon 11-27-2022 Magnesium [Mass/Vol] 1.9 mg/dL Normal 1.7-2.4 [facility] Comment on above: Performed By: #### P GLU #### [facility] [address] [place] [address] POCT Venouson 11-27-2022 Creatinine [Mass/Vol] 0.9 mg/dL Normal 0.6-1.2 [facility] Comment on above: Performed By: #### L IPAS #### [facility] [address] [place] [address] GFR >60 Normal >60 [facility] Comment on above: Result Comment: Adán atric [...] secretion. Performed By: #### L IPAS #### [facility] [address] [place] [address] POC Performed on SEE BELOW Normal [facility] Comment on above: Result Comment: Perf ormed on POC Performed By: #### L IPAS #### [facility] [address] [place] [address] POC Sample Type KIRA Normal [facility] Comment on above: Performed By: #### L IPAS #### [facility] [address] [place] [address] Urinalysis, reflex to cultur ryder 11-27-2022 Bilirubin Ql (U) Negative Normal Negative [facility] Comment on above: Performed By: #### P GLU #### [facility] [address] [place] [address] Clarity (U) Clear Normal Clear [facility] Comment on above: Performed By: #### P GLU #### [facility] [address] [place] [address] Color (U) Yellow Normal Straw/Bristol [facility] Comment on above: Performed By: #### P GLU #### [facility] [address] [place] [address] Glucose Ql (U) Negative Normal Negative [facility] Comment on above: Performed By: #### P GLU #### [facility] [address] [place] [address] Hemoglobin Ql (U) Negative Normal Negative [facility] Comment on above: Performed By: #### P GLU #### [facility] [address] [place] [address] Ketones Ql (U) Negative Normal Negative [facility] Comment on above: Performed By: #### P GLU #### [facility] [address] [place] [address] Leukocyte esterase Test strip Ql (U) Negative Normal Negative [facility] Comment on above: Performed By: #### P GLU #### [facility] [address] [place] [address] Nitrite Ql (U) Negative Normal Negative [facility] Comment on above: Performed By: #### P GLU #### [facility] [address] [place] [address] pH (U) 7.5 [pH] Normal 5.0-9.0 [facility] Comment on above: Performed By: #### P GLU #### [facility] [address] [place] [address] Protein Ql (U) Negative Normal Negative [facility] Comment on above: Performed By: #### P GLU #### [facility] [address] [place] [address] Specific gravity (U) [Rel density] 1.026 Normal 1.005-1.03 [facility] Comment on above: Performed By: #### P GLU #### [facility] [address] [place] [address] Urine Reflexed to Culture Not Indicated Normal [facility] Comment on above: Performed By: #### P GLU #### [facility] [address] [place] [address] Urobilinogen Qn (U) 0.2 {Munir'U}/dL Normal < 2.0 [facility] Comment on above: Performed By: #### P GLU #### [facility] [address] [place] [address] CNNURSEon 11-26-2022 CNNURSE Nurse Visit (CCFVO) ---- ABBEY GARCIA ([id number]) 1990 F CHT Date Time Provider Department 11/26/22 7:00 AM JENNIFER GILLESPIE CCFVO During your visit today, we recorded the following information about you: Temperature Pulse Blood pressure 96.1 degrees 60/minute 126/72 Jennifer Gillespie, DEE 11/26/2022 10:37 AM Signed Patient in office for hydration infusion. Patient tolerated infusion well. Allergies As of Date: 11/26/2022 Noted Allergy Reaction ADHESIVE TAPE-SILICONES 02/07/2020 5 - Intolerance Comments: Sensitive to certain adhesive tapes. Redness and itchy. CODEINE 10/04/2019 8 - GI Upset NSAIDS (NON-STEROIDAL ANTI-INFLAM* 022 15 - Contraindication-Me dical Nance* Comments: S/p RYGB Date Reviewed: 11/26/2022 Reviewed by: Jennifer Gillespie, RN - Fully Assessed Reason for Visit: Dehydration [812] Primary Visit Diagnosis:Dehydrati on [E86.0] Prescriptions as of 11/26/2022 - acetaminophen [...] 06/23/2022 Cons (more content not included)... Normal [facility] US MESENTERIC ARTERY CMPLT V LABon 11-26-2022 US MESENTERIC ARTERY CMPLT VAS LAB Non-Invasive Vascular Laboratory [facility] Renal or Mesenteric Duplex Bilateral/Complete Date [...] of hemodynamically significant stenosis. Technologist: Edilia Lerner S Ordering physician: DEACON KAT Interpreting physician: Emmy Martinez MD, DORA Final CC [facility] [facility] Image : [id number] goDynamicsSISUID See Link below for Image Normal [facility] Ambulatory Visit Summaryon 1 Ambulatory Visit Summary Normal [address] [place] [address]- \.br\ Medications\.br\ What How Much When Why Instructions\.br\ Unchanged busPIRone (busPIRone 10 mg Tab) 1 [...] hours as needed for Pain Pickup at [facility]/pharmacy #[id number]\.br\ Pharmacy Information\.br\ [facility]/pharmacy #[id number]: [address] [facility] [place] [id number] [phone]\.br\ Allergies\.br\ NSAIDs (Unknown)\.br\ codeine (unknown)\.br\ Problems\.br\ Ongoing - Any problem that you are currently receiving treatment for.\.br\ Abnormal thyroid blood test\.br\ Arthritis\.br\ Asthma\.br\ BMI 30.0-30.9,adult\.br \ Depression\.br\ Dysfunction of sphincter of Oddi\.br\ Fatigue\.br\ Gall stone\.br\ Hyperthyroidism\.br \ Hypothyroid\.br\ Kidney cysts\.br\ Kidney stone\.br\ LUQ pain\.br\ Malnourished\.br\ Mixed incontinence urge and stress\.br\ Nausea\.br\ Rash of body\.br\ Renal cyst\.br\ Right flank pain\.br\ Status post surgery\.br\ Historical - Any problem that you are no longer receiving treatment for.\.br\ Allergic rhinitis\.br\ Anemia\.br\ Hypothyroidism\.br\ Metabolic syndrome\.br\ PCOS- polycystic ovary syndrome\.br\ \.br\ [facility] CNPNon 11-25-2022 CNPN Telephone (CCFVO) ---- ABBEY GARCIA ([id number]) 1990 F CHT Date Time Provider Department 11/25/22 [facility] During your visit today, we recorded the following information about you: Kristin Hu RN 11/25/2022 12:56 PM Signed Left message confirming pts appt tomorrow in the chronic care clinic for hydration. Allergies As of Date: 11/25/2022 Noted Allergy Reaction ADHESIVE TAPE-SILICONES 02/07/2020 5 - Intolerance Comments: Sensitive to certain adhesive tapes. Redness and itchy. CODEINE 10/04/2019 8 - GI Upset NSAIDS (NON-STEROIDAL ANTI-INFLAM* 022 15 - Contraindication-Me dical Nance* Comments: S/p RYGB Date Reviewed: 11/23/2022 [...] Take 1 tablet by mouth once daily. Facility-Administer ed Medications as of 11/25/2022 - NaCl 0.9% [...] Bipolar disor (more content not included)... Normal [facility] Family Medicine Office/Clini c Noteon 11-25-2022 Family Medicine Office/Clinic Note Normal [facility] Comment on above: Result Comment: Elec tronically Signed By: Cristhian REDDING, Jaquan Johnson\.br\Date and Time Signed: 11/25/22 13:56 EDT Population Healthon 11-25-19 Population Health Normal [facility] Basic metabolic 2000 panelon 11-23-2022 Anion gap [Moles/Vol] 12 mmol/L Normal 9-18 [facility] Comment on above: Order Comment: Speci men Type: BLOOD SPECIMENOrdering Facility: [facility] Address: [address] [place] [address] Performed By: #### 2 4321-2, 31728-7, ####[facility]ORYCLIA [id number] [place] [address] [place] Calcium [Mass/Vol] 8.4 mg/dL Low 8.5-10.2 [facility] Comment on above: Order Comment: Speci men Type: BLOOD SPECIMENOrdering Facility: [facility] Address: [address] [place] [address] Performed By: #### 2 4321-2, 20322-8, ####[facility]ATORYCLIA [id number] [place] [address] [place] Chloride [Moles/Vol] 107 mmol/L High 97-105 [facility] Comment on above: Order Comment: Speci men Type: BLOOD SPECIMENOrdering Facility: [facility] Address: [address] [place] [address] Performed By: #### 2 4321-2, 67326-4, ####[facility] LABORATORYCLIA [id number] [facility] [place] [place] [address] [place] CO2 [Moles/Vol] 19 mmol/L Low 22-30 [facility] Comment on above: Order Comment: Speci men Type: BLOOD SPECIMENOrdering Facility: [facility] Address: [address] [place] [address] Performed By: #### 2 4321-2, 33739-6, ####[facility]ORATORYCLIA [id number] [place] [address] [place] Creatinine [Mass/Vol] 0.71 mg/dL Normal 0.58-0.96 [facility] Comment on above: Order Comment: Speci men Type: BLOOD SPECIMENOrdering Facility: [facility] Address: [address] [place] [address] Performed By: #### 2 4321-2, 60583-6, ####[facility]ATORYCLIA [id number] [place] [address] [facility] [place] Creatinine and Glomerular filtration rate.predicted panel (S/P/Bld) 115 mL/min/1.73m??? Normal >=60 [facility] Comment on above: Order Comment: Speci men Type: BLOOD SPECIMENOrdering Facility: [facility] Address: [address] [place], [place] [address] Result Comment: Jessica mated Glomerular Filtration Rate (eGFR) is calculated [...] actual GFR. Performed By: #### 2 4321-2, 58086-4, ####[facility] [id number] [facility] [place] [address] [place] Glucose [Mass/Vol] 105 mg/dL High 74-99 [facility] Comment on above: Order Comment: Speci men Type: BLOOD SPECIMENOrdering Facility: [facility] Address: [address] [place] [address] Result Comment: The [place] [employer] (ADA) provides guidance for cutoff [...] Standards of Medical Care in Diabetes 2016, [place] [employer]. Diabetes Care. 2016.39(Suppl 1). Performed By: #### 2 4321-2, 39493-6, ####[facility]ITALIA [id number] [place] [address] [place] Potassium [Moles/Vol] 3.8 mmol/L Normal 3.7-5.1 [facility] Comment on above: Order Comment: Speci men Type: BLOOD SPECIMENOrdering Facility: [facility] Address: [address] [place] [address] Performed By: #### 2 4321-2, 34491-0, ####[facility] [id number] [facility] [place] [place] [address] [place] Sodium [Moles/Vol] 138 mmol/L Normal 136-144 [facility] Comment on above: Order Comment: Speci men Type: BLOOD SPECIMENOrdering Facility: [facility] Address: [address] [place] [address] Performed By: #### 2 4321-2, 59509-1, ####[facility] [id number] [facility] [place] [address] [place] Urea nitrogen [Mass/Vol] 7 mg/dL Normal 7-21 [facility] Comment on above: Order Comment: Speci men Type: BLOOD SPECIMENOrdering Facility: [facility] Address: [address] [place] [address] Performed By: #### 2 4321-2, 03474-7, 59370-4 ####[facility] LABORATORYIA [id number] [place] [address] [place] CASE MGT INIT ASSon 2022 CASE MGT INIT [facility] CBC panel Auto (Bld)on 11-23 Erythrocyte distribution width (RBC) [Ratio] 13.6 % Normal 11.5-15.0 [facility] Comment on above: Order Comment: Speci men Type: BLOOD SPECIMENOrdering Facility: [facility] Address: [address] [place] [address] Performed By: #### 5 8410-2 ####[facility] [id number] [place] [address] [place] Hematocrit (Bld) [Volume fraction] 36.4 % Normal 36.0-46.0 [facility] Comment on above: Order Comment: Speci men Type: BLOOD SPECIMENOrdering Facility: [facility] Address: [address] [place] [address] Performed By: #### 5 8410-2 ####[facility] LABORATORYIA [id number] [place] [address] [place] Hemoglobin (Bld) [Mass/Vol] 11.8 g/dL Normal 11.5-15.5 [facility] Comment on above: Order Comment: Speci men Type: BLOOD SPECIMENOrdering Facility: [facility] Address: [address] [place] [address] Performed By: #### 5 8410-2 ####[facility] LABORATORYIA [id number] [place] [address] [place] MCH (RBC) [Entitic mass] 30.4 pg Normal 26.0-34.0 [facility] Comment on above: Order Comment: Speci men Type: BLOOD SPECIMENOrdering Facility: [facility] Address: [address] [place] [address] Performed By: #### 5 8410-2 ####[facility]IA [id number] [place] [address] [place] MCHC (RBC) [Mass/Vol] 32.4 g/dL Normal 30.5-36.0 [facility] Comment on above: Order Comment: Speci men Type: BLOOD SPECIMENOrdering Facility: [facility] Address: [address] [place] [address] Performed By: #### 5 8410-2 ####[facility] [id number] [place] [address] [place] MCV (RBC) [Entitic vol] 93.8 fL Normal 80.0-100.0 [facility] Comment on above: Order Comment: Speci men Type: BLOOD SPECIMENOrdering Facility: [facility] Address: [address] [place] [address] Performed By: #### 5 8410-2 ####[facility] [id number] [place] [address] [place] Nucleated RBC (Bld) [#/Vol] 10*3/uL Normal <0.01 [facility] Comment on above: Order Comment: Speci men Type: BLOOD SPECIMENOrdering Facility: [facility] Address: [address] [place] [address] Performed By: #### 5 8410-2 ####[facility]IA [id number] [place] [address] [place] Platelet mean volume (Bld) [Entitic vol] 10.9 fL Normal 9.0-12.7 [facility] Comment on above: Order Comment: Speci men Type: BLOOD SPECIMENOrdering Facility: [facility] Address: [address] [place] [address] Performed By: #### 5 8410-2 ####[facility] LABORATORYIA [id number] [facility] [place] [address] [place] Platelets (Bld) [#/Vol] 217 10*3/uL Normal 150-400 [facility] Comment on above: Order Comment: Speci men Type: BLOOD SPECIMENOrdering Facility: [facility] Address: [address] [place] [address] Performed By: #### 5 8410-2 ####[facility]IA [id number] [place] [address] [place] RBC (Bld) [#/Vol] 3.88 10*6/uL Low 3.90-5.20 [facility] Comment on above: Order Comment: Speci men Type: BLOOD SPECIMENOrdering Facility: [facility] Address: [address] [place] [address] Performed By: #### 5 8410-2 ####[facility]IA [id number] [facility] [place] [address] [place] WBC (Bld) [#/Vol] 3.45 10*3/uL Low 3.70-11.00 [facility] Comment on above: Order Comment: Speci men Type: BLOOD SPECIMENOrdering Facility: [facility] Address: [address] [place] [address] Performed By: #### 5 8410-2 ####[facility] [id number] [facility] [place] [place] [address] [place] CNDSon 11-23-2022 CNDS Normal [facility] CNPNon 11-23-2022 CNPN Normal [facility] CONSULTon 11-23-2022 CONSULT Normal [facility] Hepatic function 2000 panelo n 11-23-2022 Albumin [Mass/Vol] 3.5 g/dL Low 3.9-4.9 [facility]ital Comment on above: Order Comment: Speci men Type: BLOOD SPECIMENOrdering Facility: [facility] Address: [address] [place] [address] Performed By: #### 2 4321-2, 73469-9, ####[facility]ATORYCLIA [id number] [facility] [place] [place] [address] [place] ALP [Catalytic activity/Vol] 58 U/L Normal 34-123 [facility] Comment on above: Order Comment: Speci men Type: BLOOD SPECIMENOrdering Facility: [facility] Address: [address] [place] [address] Performed By: #### 2 4321-2, 59366-6, ####[facility]ATORYCLIA [id number] [place] [address] [place] ALT [Catalytic activity/Vol] 17 U/L Normal 7-38 [facility] Comment on above: Order Comment: Speci men Type: BLOOD SPECIMENOrdering Facility: [facility] Address: [address] [place] [address] Performed By: #### 2 4321-2, 26039-1, ####[facility]ATORYIA [id number] [place] [address] [place] AST [Catalytic activity/Vol] 34 U/L Normal 13-35 [facility] Comment on above: Order Comment: Speci men Type: BLOOD SPECIMENOrdering Facility: [facility] Address: [address] [place] [address] Performed By: #### 2 4321-2, 59647-3, ####[facility]ORYIA [id number] [facility] [place] [place] [address] [place] Bilirubin [Mass/Vol] 0.4 mg/dL Normal 0.2-1.3 [facility] Comment on above: Order Comment: Speci men Type: BLOOD SPECIMENOrdering Facility: [facility] Address: [address] [place] [address] Performed By: #### 2 4321-2, 91612-1, ####[facility]ORATORYIA [id number] [place] [address] [place] Bilirubin.conjugate d [Mass/Vol] mg/dL Normal <0.2 [facility] Comment on above: Order Comment: Speci men Type: BLOOD SPECIMENOrdering Facility: [facility] Address: [address] [place] [address] Performed By: #### 2 4321-2, 82404-2, ####[facility]ORYCLIA [id number] [facility] [place] [place] [address] [place] Protein [Mass/Vol] 5.9 g/dL Low 6.3-8.0 [facility]spital Comment on above: Order Comment: Speci men Type: BLOOD SPECIMENOrdering Facility: [facility] Address: [address] [place] [address] Performed By: #### 2 4321-2, 27732-6, ####[facility]ATORYCLIA [id number] [place] [address] [place] Magnesium SerPl-mCncon 11-23 Magnesium [Mass/Vol] 1.8 mg/dL Normal 1.7-2.3 [facility] Comment on above: Order Comment: Speci men Type: BLOOD SPECIMENOrdering Facility: [facility] Address: [address] [place] [address] Performed By: #### 2 4321-2, 49402-6, ####[facility]ATORYCLIA [id number] [place] [address] [place] CBC W Auto Differential pane l (Bld)on 11-22-2022 Basophils (Bld) [#/Vol] 0.03 10*3/uL Normal <0.11 [facility] Comment on above: Order Comment: Speci men Type: BLOOD SPECIMENOrdering Facility: [facility] Address: [address] [place] [address] Performed By: #### 5 7021-8 ####[facility]ATORYCLIA [id number] [facility] [place] [place] [address] [place] Basophils/100 WBC (Bld) 0.6 % Normal [facility] Comment on above: Order Comment: Speci men Type: BLOOD SPECIMENOrdering Facility: [facility] Address: [address] [place] [address] Performed By: #### 5 7021-8 ####[facility]ATORYCLIA [id number] [place] [address] [place] Differential cell count method Nom (Bld) Auto Normal [facility] Comment on above: Order Comment: Speci men Type: BLOOD SPECIMENOrdering Facility: [facility] Address: [address] [place] [address] Performed By: #### 5 7021-8 ####[facility]ATORYCLIA [id number] [facility] [place] [place] [address] [place] Eosinophils (Bld) [#/Vol] 0.08 10*3/uL Normal <0.46 [facility] Comment on above: Order Comment: Speci men Type: BLOOD SPECIMENOrdering Facility: [facility] Address: [address] [place] [address] Performed By: #### 5 7021-8 ####[facility]ORATORYIA [id number] [place] [address] [place] Eosinophils/100 WBC (Bld) 1.7 % Normal [facility] Comment on above: Order Comment: Speci men Type: BLOOD SPECIMENOrdering Facility: [facility] Address: [address] [place] [address] Performed By: #### 5 7021-8 ####[facility]ATORYIA [id number] [place] [address] [place] Erythrocyte distribution width (RBC) [Ratio] 13.4 % Normal 11.5-15.0 [facility] Comment on above: Order Comment: Speci men Type: BLOOD SPECIMENOrdering Facility: [facility] Address: [address] [place] [address] Performed By: #### 5 7021-8 ####[facility]ATORYIA [id number] [facility] [place] [address] [place] Hematocrit (Bld) [Volume fraction] 40.4 % Normal 36.0-46.0 [facility] Comment on above: Order Comment: Speci men Type: BLOOD SPECIMENOrdering Facility: [facility] Address: [address] [place] [address] Performed By: #### 5 7021-8 ####[facility] [id number] [place] [address] [place] Hemoglobin (Bld) [Mass/Vol] 13.8 g/dL Normal 11.5-15.5 [facility] Comment on above: Order Comment: Speci men Type: BLOOD SPECIMENOrdering Facility: [facility] Address: [address] [place] [address] Performed By: #### 5 7021-8 ####[facility] [id number] [place] [address] [place] Immature granulocytes (Bld) [#/Vol] 10*3/uL Normal <0.10 [facility] Comment on above: Order Comment: Speci men Type: BLOOD SPECIMENOrdering Facility: [facility] Address: [address] [place] [address] Performed By: #### 5 7021-8 ####[facility]ORYIA [id number] [place] [address] [place] Immature granulocytes/100 WBC (Bld) 0.2 % Normal [facility] Comment on above: Order Comment: Speci men Type: BLOOD SPECIMENOrdering Facility: [facility] Address: [address] [place] [address] Performed By: #### 5 7021-8 ####[facility]ATORYIA [id number] [place] [address] [place] Lymphocytes (Bld) [#/Vol] 2.01 10*3/uL Normal 1.00-4.00 [facility] Comment on above: Order Comment: Speci men Type: BLOOD SPECIMENOrdering Facility: [facility] Address: [address] [place] [address] Performed By: #### 5 7021-8 ####[facility]ATORYIA [id number] [place] [address] [place] Lymphocytes/100 WBC (Bld) 42.2 % Normal [facility] Comment on above: Order Comment: Speci men Type: BLOOD SPECIMENOrdering Facility: [facility] Address: [address] [place] [address] Performed By: #### 5 7021-8 ####[facility]ATORYCLIA [id number] [place], [place] [address] [place] [address] [place] MCH (RBC) [Entitic mass] 31.2 pg Normal 26.0-34.0 [facility] Comment on above: Order Comment: Speci men Type: BLOOD SPECIMENOrdering Facility: [facility] Address: [address] [place] [address] Performed By: #### 5 7021-8 ####[facility] [id number] [place] [address] [place] MCHC (RBC) [Mass/Vol] 34.2 g/dL Normal 30.5-36.0 [facility] Comment on above: Order Comment: Speci men Type: BLOOD SPECIMENOrdering Facility: [facility] Address: [address] [place] [address] Performed By: #### 5 7021-8 ####[facility]ORYIA [id number] [address] [place] MCV (RBC) [Entitic vol] 91.4 fL Normal 80.0-100.0 [facility] Comment on above: Order Comment: Speci men Type: BLOOD SPECIMENOrdering Facility: [facility] Address: [address] [place] [address] Performed By: #### 5 7021-8 ####[facility]ATORYCLIA [id number] [address] [place] Monocytes (Bld) [#/Vol] 0.25 10*3/uL Normal <0.87 [facility] Comment on above: Order Comment: Speci men Type: BLOOD SPECIMENOrdering Facility: [facility] Address: [address] [place] [address] Performed By: #### 5 7021-8 ####[facility]ATORYCLIA [id number] [place] [address] [place] Monocytes/100 WBC (Bld) 5.3 % Normal [facility] Comment on above: Order Comment: Speci men Type: BLOOD SPECIMENOrdering Facility: [facility] Address: [address] [place] [address] Performed By: #### 5 7021-8 ####[facility]ORATORYIA [id number] [place] [address] [place] Neutrophils (Bld) [#/Vol] 2.38 10*3/uL Normal 1.45-7.50 [facility] Comment on above: Order Comment: Speci men Type: BLOOD SPECIMENOrdering Facility: [facility] Address: [address] [place] [address] Performed By: #### 5 7021-8 ####[facility] [id number] [place] [address] [place] Neutrophils/100 WBC (Bld) 50.0 % Normal [facility] Comment on above: Order Comment: Speci men Type: BLOOD SPECIMENOrdering Facility: [facility] Address: [address] [place] [address] Performed By: #### 5 7021-8 ####[facility] [id number] [place] [address] [place] Nucleated RBC (Bld) [#/Vol] 10*3/uL Normal <0.01 [facility] Comment on above: Order Comment: Speci men Type: BLOOD SPECIMENOrdering Facility: [facility] Address: [address] [place] [address] Performed By: #### 5 7021-8 ####[facility] [id number] [place] [address] [place] Nucleated RBC/100 WBC (Bld) [Ratio] 0.0 /100 WBC Normal [facility] Comment on above: Order Comment: Speci men Type: BLOOD SPECIMENOrdering Facility: [facility] Address: [address] [place] [address] Performed By: #### 5 7021-8 ####[facility] [id number] [place] [address] [place] Platelet mean volume (Bld) [Entitic vol] 11.1 fL Normal 9.0-12.7 [facility] Comment on above: Order Comment: Speci men Type: BLOOD SPECIMENOrdering Facility: [facility] Address: [address] [place] [address] Performed By: #### 5 7021-8 ####[facility] [id number] [place] [address] [facility] Platelets (Bld) [#/Vol] 282 10*3/uL Normal 150-400 [facility] Comment on above: Order Comment: Speci men Type: BLOOD SPECIMENOrdering Facility: [facility] Address: [address] [place] [address] Performed By: #### 5 7021-8 ####[facility] [id number] [place] [address] [place] RBC (Bld) [#/Vol] 4.42 10*6/uL Normal 3.90-5.20 [facility] Comment on above: Order Comment: Speci men Type: BLOOD SPECIMENOrdering Facility: [facility] Address: [address] [place] [address] Performed By: #### 5 7021-8 ####[facility] [id number] [place] [address] [place] WBC (Bld) [#/Vol] 4.76 10*3/uL Normal 3.70-11.00 [facility] Comment on above: Order Comment: Speci men Type: BLOOD SPECIMENOrdering Facility: [facility] Address: [address] [place] [address] Performed By: #### 5 7021-8 ####[facility] [id number] [place] [address] [place] CT ABD/PEL W IVCONon 023 CT ABD/PEL W IVCON Normal [facility] Comprehensive metabolic 2000 panelon 11-22-2022 Albumin [Mass/Vol] 4.4 g/dL Normal 3.9-4.9 [facility] Comment on above: Order Comment: Speci men Type: BLOOD SPECIMENOrdering Facility: [facility] Address: [address] [place] [address] Performed By: #### 2 4323-8, 3040-3, ####[facility]ATORYCLIA [id number] [place] [address] [place] ALP [Catalytic activity/Vol] 73 U/L Normal 34-123 [facility] Comment on above: Order Comment: Speci men Type: BLOOD SPECIMENOrdering Facility: [facility] Address: [address] [place] [address] Performed By: #### 2 4323-8, 3039-3, ####[facility]ORATORYCLIA [id number] [place] [address] [place] ALT [Catalytic activity/Vol] 21 U/L Normal 7-38 [facility] Comment on above: Order Comment: Speci men Type: BLOOD SPECIMENOrdering Facility: [facility] Address: [address] [place] [address] Performed By: #### 2 4323-8, 3039-3, ####[facility] [id number] [place] [address] [place] Anion gap [Moles/Vol] 11 mmol/L Normal 9-18 [facility] Comment on above: Order Comment: Speci men Type: BLOOD SPECIMENOrdering Facility: [facility] Address: [address] [place] [address] Performed By: #### 2 4323-8, 0-3, ####[facility]ATORYCLIA [id number] [place] [address] [place] AST [Catalytic activity/Vol] 39 U/L High 13-35 [facility] Comment on above: Order Comment: Speci men Type: BLOOD SPECIMENOrdering Facility: [facility] Address: [address] [place] [address] Performed By: #### 2 4323-8, 3, ####[facility] [id number] [place] [address] [place] Bilirubin [Mass/Vol] 0.3 mg/dL Normal 0.2-1.3 [facility] Comment on above: Order Comment: Speci men Type: BLOOD SPECIMENOrdering Facility: [facility] Address: [address] [place] [address] Performed By: #### 2 4323-8, 3039-04, ####[facility] [id number] [place] [address] [place] Calcium [Mass/Vol] 8.7 mg/dL Normal 8.5-10.2 [facility] Comment on above: Order Comment: Speci men Type: BLOOD SPECIMENOrdering Facility: [facility] Address: [address] [place] [address] Performed By: #### 2 4323-8, 3039-04, ####[facility] [id number] [place] [address] [place] Chloride [Moles/Vol] 106 mmol/L High 97-105 [facility] Comment on above: Order Comment: Speci men Type: BLOOD SPECIMENOrdering Facility: [facility] Address: [address] [place] [address] Performed By: #### 2 4323-8, 3039-04, ####[facility] [id number] [place] [address] [place] CO2 [Moles/Vol] 22 mmol/L Normal 22-30 [facility] Comment on above: Order Comment: Speci men Type: BLOOD SPECIMENOrdering Facility: [facility] Address: [address] [place] [address] Performed By: #### 2 4323-8, 3, ####[facility]ATORYCLIA [id number] [facility] [place] [address] [place] Creatinine [Mass/Vol] 0.80 mg/dL Normal 0.58-0.96 [facility] Comment on above: Order Comment: [facility] Type: BLOOD SPECIMENOrdering Facility: [facility] Address: [address] [place] [address] Performed By: #### 2 4323-8, 0-3, ####[facility] [id number] [facility] [place] [address] [place] Creatinine and Glomerular filtration rate.predicted panel (S/P/Bld) 100 mL/min/1.73m??? Normal >=60 [facility] Comment on above: Order Comment: [facility] Type: BLOOD SPECIMENOrdering Facility: [facility] Address: [address] [place] [address] Result Comment: Jessica mated Glomerular Filtration Rate (eGFR) is calculated [...] actual GFR. Performed By: #### 2 4323-8, 0-3, ####[facility]ORYIA [id number] [facility] [place] [address] [place] Glucose [Mass/Vol] 88 mg/dL Normal 74-99 [facility] Comment on above: Order Comment: [facility] Type: BLOOD SPECIMENOrdering Facility: [facility] Address: [address] [place] [address] Result Comment: The [place] [employer] (ADA) provides guidance for cutoff [...] Standards of Medical Care in Diabetes 2016, [place] [employer]. Diabetes Care. 2016.39(Suppl 1). Performed By: #### 2 4323-8, 0-3, ####[facility]ATORYCLIA [id number] [place] [address] [place] Potassium [Moles/Vol] 3.9 mmol/L Normal 3.7-5.1 [facility] Comment on above: Order Comment: Speci men Type: BLOOD SPECIMENOrdering Facility: [facility] Address: [address] [place] [address] Performed By: #### 2 4323-8, 3, ####[facility]ITALCLIA [id number] [place] [address] [place] Protein [Mass/Vol] 7.1 g/dL Normal 6.3-8.0 [facility] Comment on above: Order Comment: Speci men Type: BLOOD SPECIMENOrdering Facility: [facility] Address: [address] [place] [address] Performed By: #### 2 4323-8, 3, ####[facility] [id number] [place] [address] [place] Sodium [Moles/Vol] 139 mmol/L Normal 136-144 [facility] Comment on above: Order Comment: Speci men Type: BLOOD SPECIMENOrdering Facility: [facility] Address: [address] [place] [address] Performed By: #### 2 4323-8, 3, ####[facility]IA [id number] [place] [address] [place] Urea nitrogen [Mass/Vol] 8 mg/dL Normal 7-21 [facility] Comment on above: Order Comment: Speci men Type: BLOOD SPECIMENOrdering Facility: [facility] Address: [place] [address] Performed By: #### 2 4323-8, 3039-3, ####[facility]ORATORYCLIA [id number] [facility] [place] [place] [address] [place] ECG COMPLETEon 11-22-2022 ECG COMPLETE Normal [facility] ED NOTEon 11-22-2022 ED NOTE HNO ID: [id number] Author: Lady Garza, DEE Service: Emergency Medicine Author Type: Registered Nurse Type: ED Notes Filed: 11/22/2022 3:21 PM Note Text: Report to [employer] PRICE Normal [facility] ED PROV NOTEon 11-22-2022 ED PROV NOTE Normal [facility] HISTORY PHYSICALon HISTORY PHYSICAL Normal [facility] Lipase SerPl-cCncon 11-23-19 23 Lipase [Catalytic activity/Vol] 45 U/L Normal 16- [facility] Comment on above: Order Comment: Speci men Type: BLOOD SPECIMENOrdering Facility: [facility] Address: [place] [address] Performed By: #### 2 4323-8, 3039-3, ####[facility]ORATORYCLIA [id number] [place] [address] [place] Magnesium SerPl-mCncon 11-22 Magnesium [Mass/Vol] 1.9 mg/dL Normal 1.7-2.3 [facility] Comment on above: Order Comment: Speci men Type: BLOOD SPECIMENOrdering Facility: [facility] Address: [place] [address] Performed By: #### 2 4323-8, 0-3, ####[facility]ORATORYCLIA [id number] [place] [address] [place] NURSING PROGon 11-22-2022 NURSING PROG Normal [facility] Urinalysis complete panel (U )on 11-22-2022 Bilirubin Ql (U) Negative Normal Negative [facility] Comment on above: Order Comment: Speci men Type: URINE SPECIMENOrdering Facility: [facility] Address: [address] [place] [address] Performed By: #### 2 4356-8 ####[facility]IA [id number] [place] [address] [place] Clarity (Unsp spec) Clear Normal Clear [facility] Comment on above: Order Comment: Speci men Type: URINE SPECIMENOrdering Facility: [facility] Address: [address] [place] [address] Performed By: #### 2 4356-8 ####[facility] [id number] [place] [address] [place] Color (U) Light Yellow Normal yellow [facility] Comment on above: Order Comment: Speci men Type: URINE SPECIMENOrdering Facility: [facility] Address: [address] [place] [address] Performed By: #### 2 4356-8 ####[facility] [id number] [place] [address] [place] Epithelial cells LM.HPF (Urine sed) [#/Area] Few Normal [facility] Comment on above: Order Comment: Speci men Type: URINE SPECIMENOrdering Facility: [facility] Address: [address] [place] [address] Performed By: #### 2 4356-8 ####[facility] [id number] [place] [address] [place] Glucose Test strip (U) [Mass/Vol] Negative Normal Trace, Negative [facility] Comment on above: Order Comment: Speci men Type: URINE SPECIMENOrdering Facility: [facility] Address: [address] [place] [address] Performed By: #### 2 4356-8 ####[facility] [id number] [place] [address] [place] Hemoglobin Ql (U) Negative Normal Negative, Trace Av [facility] Comment on above: Order Comment: Speci men Type: URINE SPECIMENOrdering Facility: [facility] Address: [address] [place] [address] Performed By: #### 2 4356-8 ####[facility] [id number] [place] [address] [place] Ketones Ql (U) Negative Normal Negative, Trace [facility] Comment on above: Order Comment: Speci men Type: URINE SPECIMENOrdering Facility: [facility] Address: [address] [place] [address] Performed By: #### 2 4356-8 ####[facility] [id number] [address] [place] Leukocyte esterase Test strip Ql (U) Negative Normal Negative, 25 Patito/uL [facility] Comment on above: Order Comment: Speci men Type: URINE SPECIMENOrdering Facility: [facility] Address: [address] [place] [address] Performed By: #### 2 4356-8 ####[facility] [id number] [place] [address] [place] Nitrite Ql (U) Negative Normal Negative [facility] Comment on above: Order Comment: Speci men Type: URINE SPECIMENOrdering Facility: [facility] Address: [address] [place] [address] Performed By: #### 2 4356-8 ####[facility] [id number] [place] [address] [place] pH (U) 7.0 [pH] Normal 5.0-8.0 [facility] Comment on above: Order Comment: Speci men Type: URINE SPECIMENOrdering Facility: [facility] Address: [address] [place] [address] Performed By: #### 2 4356-8 ####[facility] [id number] [place] [address] [place] Protein (U) [Mass/Vol] Negative Normal Trace, Negative [facility] Comment on above: Order Comment: Speci men Type: URINE SPECIMENOrdering Facility: [facility] Address: [address] [place] [address] Performed By: #### 2 4356-8 ####[facility] [id number] [place] [id number] [place] RBC LM.HPF (Urine sed) [#/Area] 0-3 /HPF Normal 0-3 /HPF [facility] Comment on above: Order Comment: Speci men Type: URINE SPECIMENOrdering Facility: [facility] Address: [address] [place] [address] Performed By: #### 2 4356-8 ####[facility] [id number] [place] [id number] [place] Specific gravity (U) [Rel density] 1.020 Normal 1.005-1.030 [facility] Comment on above: Order Comment: Speci men Type: URINE SPECIMENOrdering Facility: [facility] Address: [address] [place] [address] Performed By: #### 2 4356-8 ####[facility] [id number] [place] [id number] [place] Urobilinogen Ql (U) Normal Normal Negative [facility] Comment on above: Order Comment: Speci men Type: URINE SPECIMENOrdering Facility: [facility] Address: [address] [place] [address] Performed By: #### 2 4356-8 ####[facility] [id number] [place] [id number] [place] WBC LM.HPF (Urine sed) [#/Area] 0-5 /HPF Normal 0-5 /HPF [facility] Comment on above: Order Comment: Speci men Type: URINE SPECIMENOrdering Facility: [facility] Address: [address] [place] [address] Performed By: #### 2 4356-8 ####[facility] [id number] [place] [address] [place] XR CHEST 2V FRONTAL/LATon XR CHEST 2V FRONTAL/LAT Normal [facility] CNPNon 11-20-2022 CNPN Normal [facility] Basic metabolic 2000 panelon 11-19-2022 Anion gap [Moles/Vol] 11 mmol/L Normal 9-18 [facility] Comment on above: Order Comment: Speci men Type: BLOOD SPECIMEN [facility] Address: [address] [place] [address] Performed By: #### 2 4321-2, , 2776-02 #### [facility] CLIA [id number] [address] [place] [address] [place] Calcium [Mass/Vol] 8.9 mg/dL Normal 8.5-10.2 [facility] Comment on above: Order Comment: Speci men Type: BLOOD SPECIMEN [facility] Address: [address] [place] [address] Performed By: #### 2 4321-2, , 2776-02 #### [facility] CLIA [id number] [address] [place] [address] [place] Chloride [Moles/Vol] 104 mmol/L Normal 97-105 [facility] Comment on above: Order Comment: Speci men Type: BLOOD SPECIMEN [facility] Address: [address] [place] [address] Performed By: #### 2 4321-2, , 2776-02 #### [facility] CLIA [id number] [address] [place] [address] [place] CO2 [Moles/Vol] 25 mmol/L Normal 22-30 [facility] Comment on above: Order Comment: Speci men Type: BLOOD SPECIMEN [facility] Address: [address] [place] [address] Performed By: #### 2 4321-2, , 2776-02 #### [facility] CLIA [id number] [address] [place] [address] [place] Creatinine [Mass/Vol] 0.82 mg/dL Normal 0.58-0.96 [facility] Comment on above: Order Comment: Speci men Type: BLOOD SPECIMEN [facility] Address: [address] [place] [address] Performed By: #### 2 4321-2, 28068-5, 7 #### [facility] CLIA [id number] [place] [address] [place] Creatinine and Glomerular filtration rate.predicted panel (S/P/Bld) 97 mL/min/1.73m??? Normal >=60 [facility] Comment on above: Order Comment: Geraldo marrero Type: BLOOD SPECIMEN [facility] Address: [address] [place] [address] Result Comment: Jessica mated Glomerular Filtration Rate (eGFR) is calculated [...] actual GFR. Performed By: #### 2 4321-2, 19843-6, 2777 #### [facility] CLIA [id number] [place] [address] [place] Glucose [Mass/Vol] 80 mg/dL Normal 74-99 [facility] Comment on above: Order Comment: Geraldo marrero Type: BLOOD SPECIMEN [facility] Address: [address] [place] [address] Result Comment: The [place] [employer] (ADA) provides guidance for cutoff [...] Standards of Medical Care in Diabetes 2016, [place] [employer]. Diabetes Care. 2016.39(Suppl 1). Performed By: #### 2 4321-2, , 2776-02 #### [facility] CLIA [id number] [address] [place] [address] [place] Potassium [Moles/Vol] 4.2 mmol/L Normal 3.7-5.1 [facility] Comment on above: Order Comment: Speci men Type: BLOOD SPECIMEN [facility] Address: [address] [place] [address] Performed By: #### 2 4321-2, , 2776-02 #### [facility] CLIA [id number] [address] [place] [address] [place] Sodium [Moles/Vol] 140 mmol/L Normal 136-144 [facility] Comment on above: Order Comment: Speci men Type: BLOOD SPECIMEN [facility] Address: [address] [place] [address] Performed By: #### 2 4321-2, , 2776-02 #### [facility] CLIA [id number] [address] [place] [address] [place] Urea nitrogen [Mass/Vol] 6 mg/dL Low 7-21 [facility] Comment on above: Order Comment: Speci men Type: BLOOD SPECIMEN [facility] Address: [address] [place] [address] Performed By: #### 2 4321-2, , 2776-02 #### [facility] CLIA [id number] [address] [place] [address] [place] CBC panel Auto (Bld)on 11-19 Erythrocyte distribution width (RBC) [Ratio] 13.2 % Normal 11.5-15.0 [facility] Comment on above: Order Comment: Speci men Type: BLOOD SPECIMEN [facility] Address: [address] [place] [address] Performed By: #### 5 8410-2 #### [facility] CLIA [id number] [address] [place] [address] [place] Hematocrit (Bld) [Volume fraction] 36.3 % Normal 36.0-46.0 [facility] Comment on above: Order Comment: Speci men Type: BLOOD SPECIMEN [facility] Address: [address] [place] [address] Performed By: #### 5 8410-2 #### [facility] CLIA [id number] [address] [place] [address] [place] Hemoglobin (Bld) [Mass/Vol] 12.4 g/dL Normal 11.5-15.5 [facility] Comment on above: Order Comment: Speci men Type: BLOOD SPECIMEN [facility] Address: [address] [place] [address] Performed By: #### 5 8410-2 #### [facility] CLIA [id number] [address] [place] [address] [place] MCH (RBC) [Entitic mass] 30.4 pg Normal 26.0-34.0 [facility] Comment on above: Order Comment: Speci men Type: BLOOD SPECIMEN [facility] Address: [address] [place] [address] Performed By: #### 5 8410-2 #### [facility] CLIA [id number] [address] [place] [address] [place] MCHC (RBC) [Mass/Vol] 34.2 g/dL Normal 30.5-36.0 [facility] Comment on above: Order Comment: Speci men Type: BLOOD SPECIMEN [facility] Address: [address] [place] [address] Performed By: #### 5 8410-2 #### [facility] CLIA [id number] [address] [place] [address] [place] MCV (RBC) [Entitic vol] 89.0 fL Normal 80.0-100.0 [facility] Comment on above: Order Comment: Speci men Type: BLOOD SPECIMEN [facility] Address: [address] [place] [address] Performed By: #### 5 8410-2 #### [facility] CLIA [id number] [place] [address] [place] Nucleated RBC (Bld) [#/Vol] 10*3/uL Normal <0.01 [facility] Comment on above: Order Comment: Speci men Type: BLOOD SPECIMEN [facility] Address: [address] [place] [address] Performed By: #### 5 8410-2 #### [facility] CLIA [id number] [address] [place] [address] [place] Platelet mean volume (Bld) [Entitic vol] 11.3 fL Normal 9.0-12.7 [facility] Comment on above: Order Comment: Speci men Type: BLOOD SPECIMEN [facility] Address: [address] [place] [address] Performed By: #### 5 8410-2 #### [facility] CLIA [id number] [address] [place] [address] [place] Platelets (Bld) [#/Vol] 239 10*3/uL Normal 150-400 [facility] Comment on above: Order Comment: Speci men Type: BLOOD SPECIMEN [facility] Address: [address] [place] [address] Performed By: #### 5 8410-2 #### [facility] CLIA [id number] [address] [place] [address] [place] RBC (Bld) [#/Vol] 4.08 10*6/uL Normal 3.90-5.20 [facility] Comment on above: Order Comment: Speci men Type: BLOOD SPECIMEN [facility] Address: [address] [place] [address] Performed By: #### 5 8410-2 #### [facility] CLIA [id number] [address] [place] [address] [place] WBC (Bld) [#/Vol] 2.99 10*3/uL Low 3.70-11.00 [facility] Comment on above: Order Comment: Speci men Type: BLOOD SPECIMEN [facility] Address: [address] [place] [address] Performed By: #### 5 8410-2 #### [facility] [id number] [place] [id number] [facility] CNDSon 11-19-2022 CNDS HNO ID: [id number] Author: Pallavi Harris MD Service: General Surgery Author Type: Resident Type: Discharge Summary Filed: 11/19/2022 11:37 AM Note Text: ---- Attestation signed by Deacon Kat MD at 11/26/2022 4:29 PM I saw and evaluated the patient. Discussed with the resident and agree with resident's findings and plan as documented in the resident's note. Deacon Kat MD ---- GENERAL SURGERY DISCHARGE SUMMARY PATIENT NAME: Abbey [...] an acute process. She was admitted to [facility] for symptomatic control. Nausea improved with IV [...] and itchy. Codeine GI Upset Nsaids (Non-Steroid* Contraindication-Me dical Surgical S/p RYGB DISCHARGE MEDICATION: Medication List [...] mirtazapine 1 (more content not included)... Normal [facility] Magnesium [facility] 11-19 Magnesium [Mass/Vol] 1.9 mg/dL Normal 1.7-2.3 [facility] Comment on above: Order Comment: Speci men Type: BLOOD SPECIMEN Ordering Facility: [facility] Address: [address] [place] [address] Performed By: #### 2 4321-2, 73867-5, 2777-1 #### [facility] CLIA [id number] [address] [place] [address] [place] NURSING PROGon 11-19-2022 NURSING PROG HNO ID: [id number] Author: Kimberly Rangel RN Service: Nursing Author Type: Registered Nurse Type: Nursing Progress Note Filed: 11/19/2022 11:29 AM Note Text: Other: 1047- page to orange team- pt wanting meds filled at [facility]. also pt's will be here at noon if being discharged today. making aware. 1129- second page to surgery Normal [facility] Phosphate SerPl-mCncon 11-19 Phosphate [Mass/Vol] 4.1 mg/dL Normal 2.7-4.8 [facility] Comment on above: Order Comment: Speci men Type: BLOOD SPECIMEN Ordering Facility: [facility] Address: [address] [place] [address] Performed By: #### 2 4321-2, 07328-8, 2777-1 #### [facility] CLIA [id number] [address] [place] [address] [place] Basic metabolic 2000 panelon 11-18-2022 Anion gap [Moles/Vol] 10 mmol/L Normal 9-18 [facility] Comment on above: Order Comment: Speci men Type: BLOOD SPECIMEN Ordering Facility: [facility] Address: [address] [place] [address] Performed By: #### 2 4321-2 #### [facility] CLIA [id number] [address] [place] [address] [place] Calcium [Mass/Vol] 8.8 mg/dL Normal 8.5-10.2 [facility] Comment on above: Order Comment: Speci men Type: BLOOD SPECIMEN Ordering Facility: [facility] Address: [address] [place] [address] Performed By: #### 2 4321-2 #### [facility] CLIA [id number] [address] [place] [address] [place] Chloride [Moles/Vol] 105 mmol/L Normal 97-105 [facility] Comment on above: Order Comment: Speci men Type: BLOOD SPECIMEN Ordering Facility: [facility] Address: [address] [place] [address] Performed By: #### 2 4321-2 #### [facility] CLIA [id number] [address] [place] [address] [place] CO2 [Moles/Vol] 22 mmol/L Normal 22-30 [facility] Comment on above: Order Comment: Speci men Type: BLOOD SPECIMEN Ordering Facility: [facility] Address: [address] [place] [address] Performed By: #### 2 4321-2 #### [facility] CLIA [id number] [address] [place] [address] [place] Creatinine [Mass/Vol] 0.61 mg/dL Normal 0.58-0.96 [facility] Comment on above: Order Comment: Geraldo marrero Type: BLOOD SPECIMEN Ordering Facility: [facility] Address: [address] [place] [address] Performed By: #### 2 4321-2 #### [facility] CLIA [id number] [address] [place] [address] Creatinine and Glomerular filtration rate.predicted panel (S/P/Bld) 121 mL/min/1.73m??? Normal >=60 [facility] Comment on above: Order Comment: Geraldo marrero Type: BLOOD SPECIMEN Ordering Facility: [facility] Address: [address] [place] [address] Result Comment: Jessica mated Glomerular Filtration Rate (eGFR) is calculated [...] actual GFR. Performed By: #### 2 4321-2 #### [facility] CLIA [id number] [place] [address] [place] Glucose [Mass/Vol] 115 mg/dL High 74-99 [facility] Comment on above: Order Comment: Geraldo marrero Type: BLOOD SPECIMEN Ordering Facility: [facility] Address: [address] [place] [address] Result Comment: The [place] [employer] (ADA) provides guidance for cutoff [...] Standards of Medical Care in Diabetes 2016, [place] [employer]. Diabetes Care. 2016.39(Suppl 1). Performed By: #### 2 4321-2 #### [facility] CLIA [id number] [address] [place] [address] [place] OF [facility] Potassium [Moles/Vol] 4.2 mmol/L Normal 3.7-5.1 [facility] Comment on above: Order Comment: Speci men Type: BLOOD SPECIMEN Ordering Facility: [facility] Address: [address] [address] Performed By: #### 2 4321-2 #### [facility] CLIA [id number] [address] [place] [address] [place] [facility] Sodium [Moles/Vol] 137 mmol/L Normal 136-144 [facility] Comment on above: Order Comment: Speci men Type: BLOOD SPECIMEN Ordering Facility: [facility] Address: [address] [address] Performed By: #### 2 4321-2 #### [facility] CLIA [id number] [address] [place] [address] [place] Urea nitrogen [Mass/Vol] 6 mg/dL Low 7-21 [facility] Comment on above: Order Comment: Speci men Type: BLOOD SPECIMEN Ordering Facility: [facility] Address: [address] [place] [address] Performed By: #### 2 4321-2 #### [facility] CLIA [id number] [address] [place] [address] [place] CBC panel Auto (Bld)on 11-18 Erythrocyte distribution width (RBC) [Ratio] 13.0 % Normal 11.5-15.0 [facility] Comment on above: Order Comment: Speci men Type: BLOOD SPECIMEN Ordering Facility: [facility] Address: [address] [address] Performed By: #### 2 4321-2 #### [facility] CLIA [id number] [address] [place] [address] [place] Hematocrit (Bld) [Volume fraction] 35.7 % Low 36.0-46.0 [facility] Comment on above: Order Comment: Speci men Type: BLOOD SPECIMEN Ordering Facility: [facility] Address: [address] [place] [address] Performed By: #### 2 4321-2 #### [facility] CLIA [id number] [address] [place] [address] Hemoglobin (Bld) [Mass/Vol] 12.3 g/dL Normal 11.5-15.5 [facility] Comment on above: Order Comment: Speci men Type: BLOOD SPECIMEN Ordering Facility: [facility] Address: [address] [place] [address] Performed By: #### 2 4321-2 #### [facility] CLIA [id number] [address] [place] [address] MCH (RBC) [Entitic mass] 31.1 pg Normal 26.0-34.0 [facility] Comment on above: Order Comment: Speci men Type: BLOOD SPECIMEN Ordering Facility[facility] Address: [address] [place] [address] Performed By: #### 2 4321-2 #### [facility] CLIA [id number] [address] [place] [address] MCHC (RBC) [Mass/Vol] 34.5 g/dL Normal 30.5-36.0 [facility] Comment on above: Order Comment: Speci men Type: BLOOD SPECIMEN Ordering Facility[facility] Address: [address] [place] [address] Performed By: #### 2 4321-2 #### [facility] CLIA [id number] [address] [place] [address] MCV (RBC) [Entitic vol] 90.2 fL Normal 80.0-100.0 [facility] Comment on above: Order Comment: Speci men Type: BLOOD SPECIMEN Ordering Facility[facility] Address: [address] [place] [address] Performed By: #### 2 4321-2 #### [facility] CLIA [id number] [address] [place] [address] [place] Nucleated RBC (Bld) [#/Vol] 10*3/uL Normal <0.01 [facility] Comment on above: Order Comment: Speci men Type: BLOOD SPECIMEN Ordering Facility[facility] Address: [address] [place] [address] Performed By: #### 2 4321-2 #### [facility] CLIA [id number] [address] [place] [address] [place] Platelet mean volume (Bld) [Entitic vol] 11.2 fL Normal 9.0-12.7 [facility] Comment on above: Order Comment: Speci men Type: BLOOD SPECIMEN Ordering Facility[facility] Address: [address] [place] [address] Performed By: #### 2 4321-2 #### [facility] CLIA [id number] [address] [place] [address] [place] Platelets (Bld) [#/Vol] 214 10*3/uL Normal 150-400 [facility] Comment on above: Order Comment: Speci men Type: BLOOD SPECIMEN Ordering Facility[facility] Address: [address] [place] [address] Performed By: #### 2 4321-2 #### [facility] CLIA [id number] [address] [place] [address] [place] RBC (Bld) [#/Vol] 3.96 10*6/uL Normal 3.90-5.20 [facility] Comment on above: Order Comment: Speci men Type: BLOOD SPECIMEN Ordering Facility[facility] Address: [address] [place] [address] Performed By: #### 2 4321-2 #### [facility] CLIA [id number] [address] [place] [address] [place] WBC (Bld) [#/Vol] 3.48 10*3/uL Low 3.70-11.00 [facility] Comment on above: Order Comment: Speci men Type: BLOOD SPECIMEN Ordering Facility[facility] Address: [address] [place] [address] Performed By: #### 2 4321-2 #### [facility] CLIA [id number] OF [facility] NURSING PROGon 11-18-2022 NURSING PROG HNO ID: [id number] Author: Rajni Walsh RN Service: ? Author Type: Registered Nurse Type: Nursing Progress Note Filed: 11/18/2022 10:12 AM Note Text: Other: IV infusing as ordered.Remains NPO.Took oral medications without any difficulties.C/o nausea-zofran was given as ordered.Also,having some pain-ultram given Normal [facility] Urinalysis complete panel (U )on 11-18-2022 Bacteria LM.HPF (Urine sed) [#/Area] Rare Abnormal None Seen [facility] Comment on above: Order Comment: Speci men Type: URINE SPECIMENOrdering Facility: [facility] Address: [address] [place] [address] Performed By: #### 2 4356-8 ####[facility] [id number] [place] [address] [place] Bilirubin Ql (U) Negative Normal Negative [facility] Comment on above: Order Comment: Speci men Type: URINE SPECIMENOrdering Facility: [facility] Address: [address] [place] [address] Performed By: #### 2 4356-8 ####[facility] [id number] [address] [place] Clarity (Unsp spec) Clear Normal Clear [facility] Comment on above: Order Comment: Speci men Type: URINE SPECIMENOrdering Facility: [facility] Address: [address] [place] [address] Performed By: #### 2 4356-8 ####[facility] [id number] [address] [place] Color (U) Colorless Normal Yellow [facility] Comment on above: Order Comment: Speci men Type: URINE SPECIMENOrdering Facility: [facility] Address: [address] [address] Performed By: #### 2 4356-8 ####[facility]IA [id number] [place] [address] [place] Epithelial cells LM.HPF (Urine sed) [#/Area] Few Normal [facility] Comment on above: Order Comment: Speci men Type: URINE SPECIMENOrdering Facility: [facility] Address: [address] [place] [address] Performed By: #### 2 4356-8 ####[facility]IA [id number] [place] [address] [place] Glucose Test strip (U) [Mass/Vol] Negative Normal Trace, Negative [facility] Comment on above: Order Comment: Speci men Type: URINE SPECIMENOrdering Facility: [facility] Address: [address] [place] [address] Performed By: #### 2 4356-8 ####[facility]ORYCLIA [id number] [place] [address] [place] Hemoglobin Ql (U) Negative Normal Negative, Trace [facility] Comment on above: Order Comment: Speci men Type: URINE SPECIMENOrdering Facility: [facility] Address: [address] [place] [address] Performed By: #### 2 4356-8 ####[facility] [id number] [place] [address] [place] Ketones Ql (U) Negative Normal Negative, Trace [facility] Comment on above: Order Comment: Speci men Type: URINE SPECIMENOrdering Facility: [facility] Address: [address] [place] [address] Performed By: #### 2 4356-8 ####[facility]ORYCLIA [id number] [address] [place] Leukocyte esterase Test strip Ql (U) Negative Normal Negative, 25 Patito/uL [facility] Comment on above: Order Comment: Speci men Type: URINE SPECIMENOrdering Facility: [facility] Address: [address] [place] [address] Performed By: #### 2 4356-8 ####[facility] [id number] [place] [address] [place] Nitrite Ql (U) Negative Normal Negative [facility] Comment on above: Order Comment: Speci men Type: URINE SPECIMENOrdering Facility: [facility] Address: [address] [place] [address] Performed By: #### 2 4356-8 ####[facility] [id number] [place] [address] [place] pH (U) 7.5 [pH] Normal 5.0-8.0 [facility] Comment on above: Order Comment: Speci men Type: URINE SPECIMENOrdering Facility: [facility] Address: [address] [place] [address] Performed By: #### 2 4356-8 ####[facility] [id number] [address] Protein (U) [Mass/Vol] Negative Normal Trace, Negative [facility] Comment on above: Order Comment: Speci men Type: URINE SPECIMENOrdering Facility: [facility] Address: [address] [place] [address] Performed By: #### 2 4356-8 ####[facility] [id number] [place] [address] [place] RBC LM.HPF (Urine sed) [#/Area] 0-3 /HPF Normal 0-3 /HPF [facility] Comment on above: Order Comment: Speci men Type: URINE SPECIMENOrdering Facility: [facility] Address: [address] [place] [address] Performed By: #### 2 4356-8 ####[facility] [id number] [address] Specific gravity (U) [Rel density] 1.007 Normal 1.005-1.030 [facility] Comment on above: Order Comment: Speci men Type: URINE SPECIMENOrdering Facility: [facility] Address: [address] [address] Performed By: #### 2 4356-8 ####[facility] [id number] [address] [place] Urobilinogen Ql (U) Negative Normal Negative [facility] Comment on above: Order Comment: Speci men Type: URINE SPECIMENOrdering Facility: [facility] Address: [address] [address] Performed By: #### 2 4356-8 ####[facility] [id number] [place] [address] [place] WBC LM.HPF (Urine sed) [#/Area] 0-5 /HPF Normal 0-5 /HPF [facility] Comment on above: Order Comment: Speci men Type: URINE SPECIMENOrdering Facility: [facility] Address: [address] [address] Performed By: #### 2 4356-8 ####[facility] [id number] [place] [address] [place] Bilirubin Ql (U) Negative Normal Negative [facility] Comment on above: Order Comment: Speci men Type: BLOOD SPECIMEN [facility] Address: [address] [place] [address] Performed By: #### H CG #### [facility] CLIA [id number] [address] [place] [address] [place] Clarity (Unsp spec) Clear Normal Clear [facility] Comment on above: Order Comment: Speci men Type: BLOOD SPECIMEN [facility] Address: [address] [place] [address] Performed By: #### H CG #### [facility] CLIA [id number] [address] [place] [address] [place] Color (U) Colorless Normal Yellow [facility] Comment on above: Order Comment: Speci men Type: BLOOD SPECIMEN [facility] Address: [address] [place] [address] Performed By: #### H CG #### [facility] CLIA [id number] [address] [place] [address] [place] Epithelial cells LM.HPF (Urine sed) [#/Area] Few Normal [facility] Comment on above: Order Comment: Speci men Type: BLOOD SPECIMEN [facility] Address: [address] [place] [address] Performed By: #### H CG #### [facility] CLIA [id number] [address] [place] [address] [place] Glucose Test strip (U) [Mass/Vol] Negative Normal Trace, Negative [facility] Comment on above: Order Comment: Speci men Type: BLOOD SPECIMEN [facility] Address: [address] [place] [address] Performed By: #### H CG #### [facility] CLIA [id number] [address] [place] [address] [place] Hemoglobin Ql (U) Negative Normal Negative, Trace [facility] Comment on above: Order Comment: Speci men Type: BLOOD SPECIMEN [facility] Address: [address] [place] [address] Performed By: #### H CG #### [facility] CLIA [id number] [address] [place] [address] [place] Ketones Ql (U) Negative Normal Negative, Trace [facility] Comment on above: Order Comment: Speci men Type: BLOOD SPECIMEN [facility] Address: [address] [place] [address] Performed By: #### H CG #### [facility] CLIA [id number] [address] [place] [address] [place] Leukocyte esterase Test strip Ql (U) Negative Normal Negative, 25 Patito/uL [facility] Comment on above: Order Comment: Speci men Type: BLOOD SPECIMEN [facility] Address: [address] [place] [address] Performed By: #### H CG #### [facility] CLIA [id number] [address] [place] [address] [place] Nitrite Ql (U) Negative Normal Negative [facility] Comment on above: Order Comment: Speci men Type: BLOOD SPECIMEN [facility] Address: [address] [place] [address] Performed By: #### H CG #### [facility] CLIA [id number] [address] [place] [address] [place] pH (U) 7.5 [pH] Normal 5.0-8.0 [facility] Comment on above: Order Comment: Speci men Type: BLOOD SPECIMEN [facility] Address: [address] [place] [address] Performed By: #### H CG #### [facility] CLIA [id number] [address] [place] [address] [place] Protein (U) [Mass/Vol] Negative Normal Trace, Negative [facility] Comment on above: Order Comment: Speci men Type: BLOOD SPECIMEN [facility] Address: [address] [place] [address] Performed By: #### H CG #### [facility] CLIA [id number] [address] [place] [address] [place] RBC LM.HPF (Urine sed) [#/Area] 0-3 /HPF Normal 0-3 /HPF [facility] Comment on above: Order Comment: Speci men Type: BLOOD SPECIMEN [facility] Address: [address] [place] [address] Performed By: #### H CG #### [facility] CLIA [id number] [address] [place] [address] [place] Specific gravity (U) [Rel density] 1.006 Normal 1.005-1.030 [facility] Comment on above: Order Comment: Speci men Type: BLOOD SPECIMEN [facility] Address: [address] [place] [address] Performed By: #### H CG #### [facility] CLIA [id number] [address] [place] [address] [place] Urobilinogen Ql (U) Negative Normal Negative [facility] Comment on above: Order Comment: Speci men Type: BLOOD SPECIMEN [facility] Address: [address] [place] [address] Performed By: #### H CG #### [facility] CLIA [id number] [address] [place] [address] WBC LM.HPF (Urine sed) [#/Area] 0-5 /HPF Normal 0-5 /HPF [facility] Comment on above: Order Comment: Speci men Type: BLOOD SPECIMEN [facility] Address: [address] [place] [address] Performed By: #### H CG #### [facility] CLIA [id number] [address] [place] [address] ALLIED HEALTHon 11-17-2022 ALLIED HEALTH HNO ID: [id number] Author: Keesha Nice RT(R) Service: ? Author [...] Tena(R) November 17, 2022 4:44 PM Normal [facility] CBC W Auto Differential pane l (Bld)on 11-17-2022 Basophils (Bld) [#/Vol] 0.03 10*3/uL Normal <0.11 [facility] Comment on above: Order Comment: Speci men Type: BLOOD SPECIMEN [facility] Address: [address] [place] [address] Performed By: #### 5 7021-8 #### [facility] CLIA [id number] [address] [place] [address] [place] Basophils/100 WBC (Bld) 0.7 % Normal [facility] Comment on above: Order Comment: Speci men Type: BLOOD SPECIMEN [facility] Address: [address] [place] [address] Performed By: #### 5 7021-8 #### [facility] CLIA [id number] [address] [place] [address] [place] Differential cell count method Nom (Bld) Auto Normal [facility] Comment on above: Order Comment: Speci men Type: BLOOD SPECIMEN [facility] Address: [address] [place] [address] Performed By: #### 5 7021-8 #### [facility] CLIA [id number] [address] [place] [address] [place] Eosinophils (Bld) [#/Vol] 0.07 10*3/uL Normal <0.46 [facility] Comment on above: Order Comment: Speci men Type: BLOOD SPECIMEN [facility] Address: [address] [place] [address] Performed By: #### 5 7021-8 #### [facility] CLIA [id number] [address] [place] [address] [place] Eosinophils/100 WBC (Bld) 1.7 % Normal [facility] Comment on above: Order Comment: Speci men Type: BLOOD SPECIMEN [facility] Address: [address] [place] [address] Performed By: #### 5 7021-8 #### [facility] CLIA [id number] [address] [place] [address] [place] Erythrocyte distribution width (RBC) [Ratio] 13.2 % Normal 11.5-15.0 [facility] Comment on above: Order Comment: Speci men Type: BLOOD SPECIMEN [facility] Address: [address] [place] [address] Performed By: #### 5 7021-8 #### [facility] CLIA [id number] [address] [place] [address] [place] Hematocrit (Bld) [Volume fraction] 37.2 % Normal 36.0-46.0 [facility] Comment on above: Order Comment: Speci men Type: BLOOD SPECIMEN [facility] Address: [address] [place] [address] Performed By: #### 5 7021-8 #### [facility] CLIA [id number] [address] [place] [address] [place] Hemoglobin (Bld) [Mass/Vol] 12.9 g/dL Normal 11.5-15.5 [facility] Comment on above: Order Comment: Speci men Type: BLOOD SPECIMEN [facility] Address: [address] [place] [address] Performed By: #### 5 7021-8 #### [facility] CLIA [id number] [address] [place] [address] [place] Immature granulocytes (Bld) [#/Vol] 10*3/uL Normal <0.10 [facility] Comment on above: Order Comment: Speci men Type: BLOOD SPECIMEN [facility] Address: [address] [place] [address] Performed By: #### 5 7021-8 #### [facility] CLIA [id number] [address] [place] [address] [place] Immature granulocytes/100 WBC (Bld) 0.2 % Normal [facility] Comment on above: Order Comment: Speci men Type: BLOOD SPECIMEN [facility] Address: [address] [place] [address] Performed By: #### 5 7021-8 #### [facility] CLIA [id number] [address] [place] [address] [place] Lymphocytes (Bld) [#/Vol] 1.81 10*3/uL Normal 1.00-4.00 [facility] Comment on above: Order Comment: Speci men Type: BLOOD SPECIMEN [facility] Facility[facility] Address: [address] [place] [address] Performed By: #### 5 7021-8 #### [facility] CLIA [id number] [address] [place] [address] [place] Lymphocytes/100 WBC (Bld) 44.6 % Normal [facility] [facility] Comment on above: Order Comment: Speci men Type: BLOOD SPECIMEN Ordering Facility: [facility] Address: [address] [place] [address] Performed By: #### 5 7021-8 #### [facility] CLIA [id number] [address] [place] [address] [place] MCH (RBC) [Entitic mass] 31.1 pg Normal 26.0-34.0 [facility] Comment on above: Order Comment: Speci men Type: BLOOD SPECIMEN Ordering Facility: [facility] Address: [address] [place] [address] Performed By: #### 5 7021-8 #### [facility] CLIA [id number] [address] [place] [address] [place] MCHC (RBC) [Mass/Vol] 34.7 g/dL Normal 30.5-36.0 [facility] Comment on above: Order Comment: Speci men Type: BLOOD SPECIMEN Ordering Facility: [facility] Address: [address] [place] [address] Performed By: #### 5 7021-8 #### [facility] CLIA [id number] [address] [place] [address] [place] MCV (RBC) [Entitic vol] 89.6 fL Normal 80.0-100.0 [facility] Comment on above: Order Comment: Speci men Type: BLOOD SPECIMEN Ordering Facility: [facility] Address: [address] [place] [address] Performed By: #### 5 7021-8 #### [facility] CLIA [id number] [address] [place] [address] [place] Monocytes (Bld) [#/Vol] 0.21 10*3/uL Normal <0.87 [facility] Comment on above: Order Comment: Speci men Type: BLOOD SPECIMEN Ordering Facility: [facility] Address: [address] [place] [address] Performed By: #### 5 7021-8 #### [facility] CLIA [id number] [address] [place] [address] [place] Monocytes/100 WBC (Bld) 5.2 % Normal [facility] Comment on above: Order Comment: Speci men Type: BLOOD SPECIMEN Ordering Facility: [facility] Address: [address] [place] [address] Performed By: #### 5 7021-8 #### [facility] CLIA [id number] [address] [place] [address] [place] Neutrophils (Bld) [#/Vol] 1.93 10*3/uL Normal 1.45-7.50 [facility] Comment on above: Order Comment: Speci men Type: BLOOD SPECIMEN Ordering Facility: [facility] Address: [address] [place] [address] Performed By: #### 5 7021-8 #### [facility] CLIA [id number] [address] [place] [address] [place] Neutrophils/100 WBC (Bld) 47.6 % Normal [facility] Comment on above: Order Comment: Speci men Type: BLOOD SPECIMEN Ordering Facility: [facility] Address: [address] [place] [address] Performed By: #### 5 7021-8 #### [facility] CLIA [id number] [address] [place] [address] [place] Nucleated RBC (Bld) [#/Vol] 10*3/uL Normal <0.01 [facility] Comment on above: Order Comment: Speci men Type: BLOOD SPECIMEN Ordering Facility: [facility] Address: [address] [place] [address] Performed By: #### 5 7021-8 #### [facility] CLIA [id number] [address] [place] [address] [place] Nucleated RBC/100 WBC (Bld) [Ratio] 0.0 /100 WBC Normal [facility] Comment on above: Order Comment: Speci men Type: BLOOD SPECIMEN Ordering Facility: [facility] Address: [address] [place] [address] Performed By: #### 5 7021-8 #### [facility] CLIA [id number] [address] [place] [address] [place] Platelet mean volume (Bld) [Entitic vol] 11.9 fL Normal 9.0-12.7 [facility] Comment on above: Order Comment: Speci men Type: BLOOD SPECIMEN Ordering Facility: [facility] Address: [address] [place] [address] Performed By: #### 5 7021-8 #### [facility] CLIA [id number] [address] [place] [address] [place] Platelets (Bld) [#/Vol] 85 10*3/uL Low 150-400 [facility] Comment on above: Order Comment: Speci men Type: BLOOD SPECIMEN Ordering Facility: [facility] Address: [address] [place] [address] Result Comment: Resu lts may be inaccurate due to the presence of microclots. Performed By: #### 5 7021-8 #### [facility] CLIA [id number] [address] [place] [address] [place] RBC (Bld) [#/Vol] 4.15 10*6/uL Normal 3.90-5.20 [facility] Comment on above: Order Comment: Speci men Type: BLOOD SPECIMEN Ordering Facility: [facility] Address: [address] [place] [address] Performed By: #### 5 7021-8 #### [facility] CLIA [id number] [address] [place] [address] [place] WBC (Bld) [#/Vol] 4.06 10*3/uL Normal 3.70-11.00 [facility] Comment on above: Order Comment: Speci men Type: BLOOD SPECIMEN Ordering Facility: [facility] Address: [address] [place] [address] Result Comment: Resu lts may be inaccurate due to the presence of microclots. Performed By: #### 5 7021-8 #### [facility] [id number] [address] [place] CONSULTon 11-17-2022 CONSULT HNO ID: [id number] Author: Adam Rendon MD Service: General Surgery Author Type: Resident Type: Consults Filed: 11/17/2022 7:53 PM Note Text: ---- Attestation signed by Jonelle Santizo MD at 11/18/2022 6:13 AM Attending Note I evaluated the patient and personally participated in the paula components. I agree with the resident's findings and plan as documented and have discussed the case and management of the patient's care with the resident. Signature: Jonelle Santizo MD Date: 11/18/2022 Time: 6:13 AM ---- GENERAL SURGERY NOTE Abbey Garcia [id number] Subjective CHIEF COMPLAINT: Abdominal pain HISTORY OF [...] past. (Not in a hospital admission) Current Facility-Administer ed Medications Medication Dose Route Frequency [START ON 11/19/2022] NaCl 0.9% 2,000 mL iv bolus 2,000 mL INTRAVENOUS ONCE iv contrast (radiology procedure) INTRAVENOUS DIRECTED PRN ALLERGIES Allergen Reactions Adhesive Tape-Silic* Intolerance Sensitive to certain adhesive tapes. Redness and itchy. Codeine GI Upset Nsaids (Non-Steroid* Contraindication-Me dical Surgical S/p RYGB Medication and Non-Pharmacologic VTE Prophylaxis/Anticoa gulants VTE Prophylaxis: VTE prophylaxis appropriate COMPLETE REVIEW [...] ENDOCRINE: Negative for cold or heat intolerance HEMATOLOGIC/LYMPHAT IC: Negative for prolonged bleeding, or bruising easily. [...] Laying in bed in no acute distress NEUROLOGIC/PSYCHIAT LYLY: Alert, Oriented x3 HEENT: Sclera non-icteric LUNGS: Clear to auscultation bilaterally, no increased work of breathing on room air HEART: Regular rate and rhythm ABDOMEN: Soft, not distended, moderate epigastric tenderness to palpation, no rebound tenderness INTEGUMENTARY: No appreciable rashes or lesions MUSCULOSKELETAL: No deformities DATA: Diagnos (more content not included)... Normal [facility] CT ABD/PEL W IVCONon 023 CT [...] Lymph nodes: No abdominal or pelvic lymphadenopathy. Mesentery/Peritoneu m: Small volume of ascites. Small volume of [...] tissue stranding and gas. Lower thorax: Unremarkable. Checkout Supervisor (topogram) images: No additional findings. IMPRESSION: 1. [...] also a consideration, but considered less likely. Filling Station Attendant: [facility] Transcribe Date/Time: Nov 17 2022 4:50P Dictated by : AINSLEY العراقي MD This examination was interpreted and the report reviewed and electronically signed by: AINSLEY العراقي MD on Nov 17 2022 5:09PM EST [id number] ACN Normal [facility] Comprehensive metabolic 2000 panelon 11-17-2022 Albumin [Mass/Vol] 4.2 g/dL Normal 3.9-4.9 [facility] Comment on above: Order Comment: Speci men Type: BLOOD SPECIMEN Ordering Facility: [facility] Address: [address] [place] [address] Performed By: #### 5 8410-2 #### [facility] CLIA [id number] [address] [place] [address] [place] ALP [Catalytic activity/Vol] 69 U/L Normal 34-123 [facility] Comment on above: Order Comment: Speci men Type: BLOOD SPECIMEN Ordering Facility: [facility] Address: [address] [place] [address] Performed By: #### 5 8410-2 #### [facility] CLIA [id number] [place] [address] [place] ALT [Catalytic activity/Vol] 22 U/L Normal 7-38 [facility] Comment on above: Order Comment: Speci men Type: BLOOD SPECIMEN Ordering Facility: [facility] Address: [address] [place] [address] Performed By: #### 5 8410-2 #### [facility] CLIA [id number] [address] [place] [address] [place] Anion gap [Moles/Vol] 9 mmol/L Normal 9-18 [facility] Comment on above: Order Comment: Speci men Type: BLOOD SPECIMEN Ordering Facility: [facility] Address: [address] [place] [address] Performed By: #### 5 8410-2 #### [facility] CLIA [id number] [address] [place] [address] [place] AST [Catalytic activity/Vol] 40 U/L High 13-35 [facility] Comment on above: Order Comment: Speci men Type: BLOOD SPECIMEN Ordering Facility: [facility] Address: [address] [place] [address] Performed By: #### 5 8410-2 #### [facility] CLIA [id number] [address] [place] [address] [place] Bilirubin [Mass/Vol] 0.4 mg/dL Normal 0.2-1.3 [facility] Comment on above: Order Comment: Speci men Type: BLOOD SPECIMEN Ordering Facility: [facility] Address: [address] [place] [address] Performed By: #### 5 8410-2 #### [facility] CLIA [id number] [address] [place] [address] [place] Calcium [Mass/Vol] 8.8 mg/dL Normal 8.5-10.2 [facility] Comment on above: Order Comment: Speci men Type: BLOOD SPECIMEN Ordering Facility: [facility] Address: [address] [place] [address] Performed By: #### 5 8410-2 #### [facility] CLIA [id number] [address] [place] [address] [place] Chloride [Moles/Vol] 107 mmol/L High 97-105 [facility] Comment on above: Order Comment: Speci men Type: BLOOD SPECIMEN Ordering Facility: [facility] Address: [address] [place] [address] Performed By: #### 5 8410-2 #### [facility] CLIA [id number] [address] [place] [address] [place] CO2 [Moles/Vol] 23 mmol/L Normal 22-30 [facility] Comment on above: Order Comment: Speci men Type: BLOOD SPECIMEN Ordering Facility: [facility] Address: [address] [place] [address] Performed By: #### 5 8410-2 #### [facility] CLIA [id number] [address] [place] [address] [place] Creatinine [Mass/Vol] 0.75 mg/dL Normal 0.58-0.96 [facility] Comment on above: Order Comment: Speci men Type: BLOOD SPECIMEN Ordering Facility: [facility] Address: [address] [place] [address] Performed By: #### 5 8410-2 #### [facility] CLIA [id number] [address] [place] [address] [place] Creatinine and Glomerular filtration rate.predicted panel (S/P/Bld) 108 mL/min/1.73m??? Normal >=60 [facility] Comment on above: Order Comment: Speci men Type: BLOOD SPECIMEN Ordering Facility: [facility] Address: [address] [place] [address] Result Comment: Jessica mated Glomerular Filtration Rate (eGFR) is calculated using the 2020 CKD-EPI creatinine equation. This equation utilizes serum creatinine, sex, and age as parameters. The creatinine assay has traceable calibration to isotope dilution-mass spectrometry. Refer to KDIGO guidelines for clinical interpretation. In patients with unstable renal function, e.g. those with acute kidney injury, the eGFR may not accurately reflect actual GFR. Performed By: #### 5 8410-2 #### [facility] CLIA [id number] [place] [address] [place] Glucose [Mass/Vol] 80 mg/dL Normal 74-99 [facility] Comment on above: Order Comment: Geraldo marrero Type: BLOOD SPECIMEN Ordering Facility: [facility] Address: [address] [place] [address] Result Comment: The [place] Diabetes Association (ADA) provides guidance for cutoff [...] Standards of Medical Care in Diabetes 2016, [place] [employer]. Diabetes Care. 2016.39(Suppl 1). Performed By: #### 5 8410-2 #### [facility] CLIA [id number] [address] [place] [address] [place] Potassium [Moles/Vol] 4.3 mmol/L Normal 3.7-5.1 [facility] Comment on above: Order Comment: Geraldo marrero Type: BLOOD SPECIMEN Ordering Facility[facility] Address: [address] [place] [address] Performed By: #### 5 8410-2 #### [facility] CLIA [id number] [place] [address] [place] Protein [Mass/Vol] 6.9 g/dL Normal 6.3-8.0 [facility] Comment on above: Order Comment: Speci men Type: BLOOD SPECIMEN Ordering Facility[facility] Address: [address] [place] [address] Performed By: #### 5 8410-2 #### [facility] CLIA [id number] [address] [place] [id number] [place] Sodium [Moles/Vol] 139 mmol/L Normal 136-144 [facility] Comment on above: Order Comment: Speci men Type: BLOOD SPECIMEN Ordering Facility[facility] Address: [address] [place] [address] Performed By: #### 5 8410-2 #### [facility] CLIA [id number] [address] [place] [address] [place] Urea nitrogen [Mass/Vol] 8 mg/dL Normal 7-21 [facility] Comment on above: Order Comment: Speci men Type: BLOOD SPECIMEN Ordering Facility[facility] Address: [address] [place] [address] Performed By: #### 5 8410-2 #### [facility] CLIA [id number] [address] [place] ED NOTEon 11-17-2022 ED NOTE HNO ID: [id number] Author: Jayla Jean RN Service: ? Author Type: Registered Nurse Type: ED Notes Filed: 11/17/2022 2:00 PM Note Text: Pt sts symptoms she feels like she is going to pass out in WR. Vitals rechecked and DS done Normal [facility] ED PROV NOTEon 11-17-2022 ED PROV NOTE HNO ID: [id number] Author: Xiomara Waters MD Service: ? Author [...] NPO after midnight. ED Course as of 11/17/22 1847 Others' Documentation WedNov 17, 2022 1600 On reevaluation, reporting improvement in her abdominal pain though persistent nausea. We will administer droperidol and reevaluate [MB] 1753 Attending Note I have personally performed a face to face assessment of the patient and have reviewed the PA/PRESSER ALL AROUND note. I performed a substantive portion of [...] TIME: 6:47 PM PAGER/CONTACT #: [email or web address] WATERS 11/17/22 1848 [facility] ED PROV NOTE HNO ID: [id number] Author: Serena Hamm DO Service: Emergency Medicine [...] and itchy. Codeine GI Upset Nsaids (Non-Steroid* Contraindication-Me dical Surgical S/p RYGB Review of Systems Constitutional: Positive for chills. Respiratory: Negative for shortness of breath. Cardiovascular: Negative for chest pain. Gastrointestinal: Positive for abdominal pain, diarrhea, nausea and vomiting. Negative for blood in stool and constipation. Genitourinary: Negative for dysuria and hematuria. Skin: Negative for color change. Allergic/Immunologi c: Negative for immunocompromised state. Hematological: Does not [...] tenderness, left (more content not included)... Normal [facility] ED Triage Noteon 11-17-2022 ED Triage Note HNO ID: [id number] Author: Kuldip Pereyra MD Service: ? Author [...] post surgery SIGNATURE: Kuldip Pereyra MD Normal [facility] Lipase SerPl-cCncon 11-18-19 23 Lipase [Catalytic activity/Vol] 26 U/L Normal 16- [facility] Comment on above: Order Comment: Speci men Type: BLOOD SPECIMEN Order[facility] Address: [address] [place] [address] Performed By: #### 5 8410-2 #### [facility] CLIA [id number] [place] [address] [place] NURSING PROGon 11-17-2022 NURSING PROG HNO ID: [id number] Author: Thuy Branch RN Service: ? Author Type: Registered Nurse Type: Nursing Progress Note Filed: 11/17/2022 9:27 PM Note Text: Transfer Note: PATIENT NAME: Abbey Garcia Patient Location: [place] [address] [address] 5 Room: [place] [address] Patient transferred into room/unit 3 C35 in stable condition. Actions taken: No futher actions taken at this time. Will continue to monitor and check with patient. Normal [facility] NURSING PROG HNO ID: [id number] Author: Michaela Anguiano RN Service: Nursing Author Type: Registered Nurse Type: Nursing Progress Note Filed: 11/17/2022 9:21 PM Note Text: Transfer Note: PATIENT NAME: Abbey Garcia Patient Location: [place] [address]/[address] 5 Room: [place] [address] Patient transferred into room/unit PK335 in stable condition. Actions taken: No futher actions taken at this time. Will continue to monitor and check with patient. Normal [facility] Ambulatory Visit Summaryon 1 Ambulatory Visit Summary Normal [facility] Family Medicine Office/Clini c Noteon 11-16-2022 Family Medicine Office/Clinic Note Normal [facility] Comment on above: Result Comment: Elec tronically Signed By: Jaquan Paula.rene\Date and Time Signed: 11/16/22 10:42 EDT Basic metabolic 2000 panelon 11-12-2022 Anion gap [Moles/Vol] 12 mmol/L Normal 9-18 [facility] Comment on above: Order Comment: Speci men Type: BLOOD SPECIMEN Order[facility] Facility[facility] Address: [address] [place] [address] Performed By: #### 2 4321-2 #### [facility] CLIA [id number] [address] [place] [address] [place] Calcium [Mass/Vol] 8.8 mg/dL Normal 8.5-10.2 [facility] Comment on above: Order Comment: Speci men Type: BLOOD SPECIMEN Order[facility] Facility[facility] Address: [address] [place] [address] Performed By: #### 2 4321-2 #### [facility] CLIA [id number] [address] [place] [address] [place] Chloride [Moles/Vol] 104 mmol/L Normal 97-105 [facility] Comment on above: Order Comment: Speci men Type: BLOOD SPECIMEN Order[facility] Facility[facility] Address: [address] [place] [address] Performed By: #### 2 4321-2 #### [facility] CLIA [id number] [address] [place] [address] [place] CO2 [Moles/Vol] 20 mmol/L Low 22-30 [facility] Comment on above: Order Comment: Speci men Type: BLOOD SPECIMEN Ordering Facility[facility] Address: [address] [place] [address] Performed By: #### 2 4321-2 #### [facility] CLIA [id number] [address] [place] [address] [place] Creatinine [Mass/Vol] 0.62 mg/dL Normal 0.58-0.96 [facility] Comment on above: Order Comment: Speci men Type: BLOOD SPECIMEN Ordering Facility[facility] Address: [address] [place], [place] [id number] Performed By: #### 2 4321-2 #### [facility] CLIA [id number] [address] [place] [address] [place] Creatinine and Glomerular filtration rate.predicted panel (S/P/Bld) 121 mL/min/1.73m??? Normal >=60 [facility] Comment on above: Order Comment: Geraldo marrero Type: BLOOD SPECIMEN Ordering Facility: [facility] Address: [place] Result Comment: Jessica mated Glomerular Filtration Rate (eGFR) is calculated [...] actual GFR. Performed By: #### 2 4321-2 #### [facility] CLIA [id number] [place] [address] [place] Glucose [Mass/Vol] 102 mg/dL High 74-99 [facility] Comment on above: Order Comment: Geraldo marrero Type: BLOOD SPECIMEN Ordering Facility[facility] Address: [place] [address] Result Comment: The [place] Diabetes Association (ADA) provides guidance for cutoff [...] Standards of Medical Care in Diabetes 2016, [place] [employer]. Diabetes Care. 2016.39(Suppl 1). Performed By: #### 2 4321-2 #### [facility] CLIA [id number] [address] [place] [address] [place] Potassium [Moles/Vol] 4.2 mmol/L Normal 3.7-5.1 [facility] Comment on above: Order Comment: Speci men Type: BLOOD SPECIMEN Ordering Facility[facility] Address: [address] [place] [address] Performed By: #### 2 4321-2 #### [facility] CLIA [id number] [address] [place] [address] [place] Sodium [Moles/Vol] 136 mmol/L Normal 136-144 [facility] Comment on above: Order Comment: Speci men Type: BLOOD SPECIMEN Ordering Facility[facility] Address: [address] [place] [address] Performed By: #### 2 4321-2 #### [facility] CLIA [id number] [address] [place] [address] [place] Urea nitrogen [Mass/Vol] 8 mg/dL Normal 7-21 [facility] Comment on above: Order Comment: Speci men Type: BLOOD SPECIMEN Ordering Facility: [facility] Address: [address] Performed By: #### 2 4321-2 #### [facility] CLIA [id number] [address] [place] [address] [place] CBC W Auto Differential pane l (Bld)on 11-12-2022 Basophils (Bld) [#/Vol] 10*3/uL Normal <0.11 [facility] Comment on above: Order Comment: Speci men Type: BLOOD SPECIMEN Ordering Facility: [facility] Address: [address] [place] [address] Performed By: #### 5 8410-2 #### [facility] CLIA [id number] [address] [place] [address] [place] Basophils/100 WBC (Bld) 0.2 % Normal [facility] Comment on above: Order Comment: Speci men Type: BLOOD SPECIMEN Ordering Facility: [facility] Address: [address] [place] [address] Performed By: #### 5 8410-2 #### [facility] CLIA [id number] [address] [place] [address] [place] Differential cell count method Nom (Bld) Auto Normal [facility] Comment on above: Order Comment: Speci men Type: BLOOD SPECIMEN Ordering Facility: [facility] Address: [address] [place] [address] Performed By: #### 5 8410-2 #### [facility] CLIA [id number] [address] [place] [address] [place] Eosinophils (Bld) [#/Vol] 10*3/uL Normal <0.46 [facility] Comment on above: Order Comment: Speci men Type: BLOOD SPECIMEN Ordering Facility: [facility] Address: [address] [place] [address] Performed By: #### 5 8410-2 #### [facility] CLIA [id number] [address] [place] [address] [place] Eosinophils/100 WBC (Bld) 0.0 % Normal [facility] Comment on above: Order Comment: Speci men Type: BLOOD SPECIMEN Ordering Facility: [facility] Address: [address] [place] [address] Performed By: #### 5 8410-2 #### [facility] CLIA [id number] [address] [place] [address] [place] Erythrocyte distribution width (RBC) [Ratio] 12.6 % Normal 11.5-15.0 [facility] Comment on above: Order Comment: Speci men Type: BLOOD SPECIMEN Ordering Facility: [facility] Address: [address] [place] [address] Performed By: #### 5 8410-2 #### [facility] CLIA [id number] [address] [place] [address] [place] Hematocrit (Bld) [Volume fraction] 36.9 % Normal 36.0-46.0 [facility] Comment on above: Order Comment: Speci men Type: BLOOD SPECIMEN Ordering Facility: [facility] Address: [address] [place] [address] Performed By: #### 5 8410-2 #### [facility] CLIA [id number] [address] [place] [address] [place] Hemoglobin (Bld) [Mass/Vol] 12.8 g/dL Normal 11.5-15.5 [facility] Comment on above: Order Comment: Speci men Type: BLOOD SPECIMEN Ordering Facility: [facility] Address: [address] [place] [address] Performed By: #### 5 8410-2 #### [facility] CLIA [id number] [address] [place] [address] [place] Immature granulocytes (Bld) [#/Vol] 0.08 10*3/uL Normal <0.10 [facility] Comment on above: Order Comment: Speci men Type: BLOOD SPECIMEN Ordering Facility: [facility] Address: [address] [place] [address] Performed By: #### 5 8410-2 #### [facility] CLIA [id number] [address] [place] [address] [place] Immature granulocytes/100 WBC (Bld) 0.8 % Normal [facility] Comment on above: Order Comment: Speci men Type: BLOOD SPECIMEN [facility] Facility[facility] Address: [address] [place] [address] Performed By: #### 5 8410-2 #### [facility] CLIA [id number] [address] [place] [address] [place] Lymphocytes (Bld) [#/Vol] 1.23 10*3/uL Normal 1.00-4.00 [facility] Comment on above: Order Comment: Speci men Type: BLOOD SPECIMEN [facility] Facility[facility] Address: [address] [place] [address] Performed By: #### 5 8410-2 #### [facility] CLIA [id number] [address] [place] [address] [place] Lymphocytes/100 WBC (Bld) 12.8 % Normal [facility] Comment on above: Order Comment: Speci men Type: BLOOD SPECIMEN [facility] Facility[facility] Address: [address] [place] [address] Performed By: #### 5 8410-2 #### [facility] CLIA [id number] [address] [place] [address] [place] MCH (RBC) [Entitic mass] 30.4 pg Normal 26.0-34.0 [facility] Comment on above: Order Comment: Speci men Type: BLOOD SPECIMEN [facility] Address: [address] [place] [address] Performed By: #### 5 8410-2 #### [facility] CLIA [id number] [address] [place] [address] [place] MCHC (RBC) [Mass/Vol] 34.7 g/dL Normal 30.5-36.0 [facility] Comment on above: Order Comment: Speci men Type: BLOOD SPECIMEN [facility] Address: [address] [place] [address] Performed By: #### 5 8410-2 #### [facility] CLIA [id number] [address] [place] [address] [place] MCV (RBC) [Entitic vol] 87.6 fL Normal 80.0-100.0 [facility] Comment on above: Order Comment: Speci men Type: BLOOD SPECIMEN [facility] Address: [address] [place] [address] Performed By: #### 5 8410-2 #### [facility] CLIA [id number] [address] [place] [address] [place] Monocytes (Bld) [#/Vol] 0.42 10*3/uL Normal <0.87 [facility] Comment on above: Order Comment: Speci men Type: BLOOD SPECIMEN [facility] Address: [address] [place] [address] Performed By: #### 5 8410-2 #### [facility] CLIA [id number] [address] [place] [address] Monocytes/100 WBC (Bld) 4.4 % Normal [facility] Comment on above: Order Comment: Speci men Type: BLOOD SPECIMEN [facility] Address: [address] [place] [address] Performed By: #### 5 8410-2 #### [facility] CLIA [id number] [address] [place] [address] [place] Neutrophils (Bld) [#/Vol] 7.84 10*3/uL High 1.45-7.50 [facility] Comment on above: Order Comment: Speci men Type: BLOOD SPECIMEN [facility] Address: [address] [place] [address] Performed By: #### 5 8410-2 #### [facility] CLIA [id number] [address] [place] [address] [place] Neutrophils/100 WBC (Bld) 81.8 % Normal [facility] Comment on above: Order Comment: Speci men Type: BLOOD SPECIMEN [facility] Address: [address] [place] [address] Performed By: #### 5 8410-2 #### [facility] CLIA [id number] [address] [place] [address] [place] Nucleated RBC (Bld) [#/Vol] 10*3/uL Normal <0.01 [facility] Comment on above: Order Comment: Speci men Type: BLOOD SPECIMEN [facility] Address: [address] [place] [address] Performed By: #### 5 8410-2 #### [facility] CLIA [id number] [address] [place] [address] [place] Nucleated RBC/100 WBC (Bld) [Ratio] 0.0 /100 WBC Normal [facility] Comment on above: Order Comment: Speci men Type: BLOOD SPECIMEN [facility] Address: [address] [place] [address] Performed By: #### 5 8410-2 #### [facility] CLIA [id number] [address] [place] [address] [place] Platelet mean volume (Bld) [Entitic vol] 11.3 fL Normal 9.0-12.7 [facility] Comment on above: Order Comment: Speci men Type: BLOOD SPECIMEN Ordering Facility[facility] Address: [address] [place] [address] Performed By: #### 5 8410-2 #### [facility] CLIA [id number] [address] [place] [address] [facility] [place] Platelets (Bld) [#/Vol] 253 10*3/uL Normal 150-400 [facility] Comment on above: Order Comment: Speci men Type: BLOOD SPECIMEN [facility] Address: [address] [place] [address] Performed By: #### 5 8410-2 #### [facility] CLIA [id number] [place] [address] [place] RBC (Bld) [#/Vol] 4.21 10*6/uL Normal 3.90-5.20 [facility] Comment on above: Order Comment: Speci men Type: BLOOD SPECIMEN [facility] Address: [address] [place] [address] Performed By: #### 5 8410-2 #### [facility] CLIA [id number] [address] [place] [address] [place] WBC (Bld) [#/Vol] 9.59 10*3/uL Normal 3.70-11.00 [facility] Comment on above: Order Comment: Speci men Type: BLOOD SPECIMEN [facility] Address: [address] [place] [address] Performed By: #### 5 8410-2 #### [facility] CLIA [id number] [place] CNDSon 11-12-2022 CNDS HNO ID: [id number] Author: Kimberly Miranda PA-C Service: General Surgery Author Type: Physician Driver Salesman Type: Discharge Summary Filed: 11/12/2022 4:27 PM Note Text: ---- Attestation signed by Deacon Kat MD at 11/13/2022 11:38 AM I saw and evaluated the patient. Discussed with the resident and agree with resident's findings and plan as documented in the resident's note. Deacon Kat MD ---- DISCHARGE SUMMARY PATIENT NAME: Abbey Garcia ADMISSION [...] with casings, such as sausage or kielbasa. Phelps peanut butter. Nuts. Beans. Dried fruits. Fresh [...] at great ris (more content not included)... [facility] CNPNon 11-12-2022 CNPN [facility] NURSING PROGon 11-12-2022 NURSING PROG HNO ID: [id number] Author: Crystal Atwood RN Service: ? Author Type: Registered Nurse Type: Nursing Progress Note Filed: 11/12/2022 12:25 PM Note Text: Daily Note: 0834-Pt sitting up in chair at this time. Reports abdominal cramping and tightness. Reports mild nausea as well, currently eating breakfast. Medicated with prn zofran. Abdomen is soft, bowel sounds hypoactive. Lap sites FLAQUITO with glue, no drainage present. Gauze dressing [...] 1210-Pt observed sleeping in bed. Safety maintained. [facility] NUTRITIONon 11-12-2022 NUTRITION HNO ID: [id number] Author: Michael Franklin RD Service: NST-Nutrition Support Team Author [...] related history, Imaging studies Estimated kilocalorie needs: 5994-3090 Calorie Calculation Method: 15-20 kcals/kg Estimated protein [...] of Low vitamin D and [employer] - aware and Vitamin D to be increased [...] Billing: $ Initial Assessment: 1-15 minutes SIGNATURE: Michael Franklin RD PATIENT NAME: Abbey Garcia DATE: November 12, 2022 TIME: 2:38 PM [facility] ANES POSTPROC EVALon 023 ANES POSTPROC EVAL HNO ID: [id number] Author: Earnest Garcia DO Service: Anesthesiology Author Type: Anesthesiologist Type: Anesthesia Postprocedure Evaluation Filed: 11/11/2022 6:51 PM Note Text: POST ANESTHESIA EVALUATION NOTE : 1990 Procedure Summary Date: 11/11/22 Room / Location: OR / OR Anesthesia Start: 1508 Anesthesia Stop: 175 [...] November 11, 2022 TIME: 6:51 PM CSN: [id number] [facility] ANES PRE-OPon 11-11-2022 ANES PRE-OP HNO ID: [id number] Author: Natalie Blanco MD Service: ? Author [...] and consent discussed: yes. Patient / Responsible Libertarian agrees to proceed: yes Patient / Surrogate [...] 11/11/22 1252 SpO2 99 % 11/11/22 1252 Facility-Administer ed Medications as of 11/11/2022 Medication Dose Route [...] November 11, 2022 TIME: 1:19 PM CSN: [id number] [facility] BRIEF OP NOTon 11-11-2022 BRIEF OP NOT HNO ID: [id number] Author: Deacon Kat MD Service: General Surgery Author Type: Physician Type: Brief Op Note Filed: 11/11/2022 5:49 PM Note Text: GENERAL SURGERY BRIEF OP NOTE LOG ID: [id number] Surgery/Procedure Date: 11/11/2022 Incision/Procedure Start Time: 3:48 PM Incision Close/Procedure End Time: 5:45 PM Surgeon(s) and Driver Salesman(s): Surgeon(s) and Role: Panel 1: * Deacon Kat MD - Primary * Deacon Hummel MD - Resident - Assisting Panel 2: * Liat Santiago MD - Primary No Additional Staff Procedure(s): Laparoscopic-assist ed ERCP Closure of JJ-mesenteric defect Wedge gastrectomy [...] entrance into the biliary tract Complications: None Pre-Op/Pre-Procedur e Diagnosis: Pre-Op Diagnosis Codes: * 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 Procedure Code(s): --- Professional --- 91701 72397 Diagnosis Code(s): --- Professional --- K83.1 CPT copyright 2020 [place]. All rights reserved. The codes documented in this report are preliminary and upon operations staff specialist security review may be revised to meet current compliance requirements. Attending Participation: I personally performed the entire procedure. Scope In: 4:46:30 PM Scope Out: 5:03:25 PM MD Liat Carter MD 11/11/2022 5:07:46 PM This report has been signed electronically by Liat Santiago MD Number of Addenda: 0 Note Initiated On: 11/11/2022 4:31 PM Estimated Blood Loss: Estimated blood loss: none. Normal [facility] NURSING PROGon 11-11-2022 NURSING PROG HNO ID: [id number] Author: Summer Bowen RN Service: ? Author Type: Registered Nurse Type: Nursing Progress Note Filed: 11/11/2022 8:23 PM Note Text: Transfer Note: PATIENT NAME: Abbey Garcia Patient Location: [place] [address] [address] 1 Room: [place] [address] [facility]. Actions taken: No futher actions taken at this time. Will continue to monitor and check with patient. Normal [facility] OPERATIVE NOon 11-11-2022 OPERATIVE NO HNO ID: [id number] Author: Deacon Kat MD Service: General Surgery Author Type: Physician Type: Operative Report Filed: 11/12/2022 8:00 AM Note Text: [facility] - Operative Report ABBEY GARCIA : 1990 AGE: 32. SEX: F PATIENT TYPE: I HOSP SVC: Surgical LOCATION: [facility] ATTENDING PHYSICIAN: Deacon Kat M.D. CSN NUMBER: [id number] DATE OF SURGERY/PROCEDURE: 11/11/2022 INCISION/PROCEDURE START TIME: 3:48 PM INCISION CLOSE/PROCEDURE END TIME: 5:45 PM PREOPERATIVE DIAGNOSIS: 1. Sphincter of Oddi dysfunction. 2. History of bypass gastrojejunostomy. POSTOPERATIVE DIAGNOSIS: 1. Sphincter of Oddi dysfunction. 2. History of bypass gastrojejunostomy. SURGEON: Deacon Kat M.D. FHA UNDERWRITER: Deacon Hummel M.D. SURGERY/PROCEDURE: 1. Laparoscopic gastric exploration [...] the procedure with assistance. Deacon Kat M.D. ARAMIS:[id number] [phone] [facility] PT EDon 11-11-2022 PT ED HNO ID: [id number] Author: Nadiya Chowdhury, RN Service: Nursing Author Type: Registered Nurse Type: Patient Education Filed: 11/11/2022 1:01 PM Note Text: PATIENT EDUCATION TOPIC: PROCEDURE / SURGERY: Pre-op Teaching: Surgical Safety Principles PATIENT NAME: Abbey Garcia PATIENT LOCATION: [facility] OR POOL/[facility] OR POOL READINESS TO LEARN COGNITIVE ABILITY: Alert and oriented MOTIVATION TO LEARN: Eager FAMILY SUPPORT: None - Unavailable/disinte rested INSTRUCTION PROVIDED TO: Patient PATIENT LEARNS BEST BY: Individual Instruction FACTORS AFFECTING LEARNING: None PHYSICAL LIMITATIONS AFFECTING LEARNING: None LEARNING RESPONSE DIAGNOSIS: PATIENT/FAMILY RESPONSE: Verbalizes understanding of: PRE-OPERATIVE INSTRUCTIONS-Correc t action to take to follow pre-operative instructions Information received as demonstrated by interest and questions METHOD OF INSTRUCTION: Verbal instruction FOLLOW-UP PLAN: Complete - No need for follow-up INSTRUCTIONAL AIDS USED: NA SUPPLEMENTAL MATERIAL PROVIDED TO PATIENT: None REFERRAL (RECOMMENDATION): None Electronically Signed By: Nadiya Chowdhury [facility] TYPE + SCREENon 11-11-2022 ABO O [facility] Comment on above: Order Comment: Speci men Type: BLOOD SPECIMENOrdering Facility: [facility] Address: [address] [place] [address] Performed By: #### T SCR ####[facility] [id number] [address] HISTORICAL AB SCR STATUS Negative [facility] Comment on above: Order Comment: Speci men Type: BLOOD SPECIMENOrdering Facility: [facility] Address: [address] [place] [address] Performed By: #### T SCR ####[facility] [id number] [address] Rh Nom (Bld) Positive [facility] Comment on above: Order Comment: Speci men Type: BLOOD SPECIMENOrdering Facility: [facility] Address: [address] [place] [address] Performed By: #### T SCR ####[facility] [id number] [address] TYPE AND SCREEN EXPIRATION 11/14/2022 23:59 [facility] Comment on above: Order Comment: Speci men Type: BLOOD SPECIMENOrdering Facility: [facility] Address: [address] [place] [address] Performed By: #### T SCR ####[facility] [id number] [place] [address] [place] XR ERCP READ ONLYon 11-12-19 23 XR ERCP READ ONLY * * *Final [...] duct. IMPRESSION: Fluoroscopic assistance for ERCP procedure Filling Station Attendant: JUANCARLOS Transcribe Date/Time: Nov 12 2022 7:12A Dictated by : DEENA ALSTON MD This examination was interpreted and the report reviewed and electronically signed by: DEENA ALSTON MD on Nov 12 2022 7:13AM EST [id number] ACN Normal [facility] CNCOon 11-10-2022 CNCO Letter Text Normal [facility]22 CNPN Normal [facility] 11-09-2022 CNPN Normal [facility] Population Health 11-10-19 23 Population Health Normal [facility] CNDSon 11-08-2022 CNDS Normal [facility] Basic metabolic 2000 panelon 11-06-2022 Anion gap [Moles/Vol] 8 mmol/L Low -18 [facility] Comment on above: Order Comment: Speci men Type: BLOOD SPECIMENOrdering Facility: [facility] Address: [address] [place] [id number] Performed By: #### 2 4321-2 ####[facility]ORYCLIA [id number] [facility] [place] [address] [place] Calcium [Mass/Vol] 8.6 mg/dL Normal 8.5-10.2 [facility] Comment on above: Order Comment: Speci men Type: BLOOD SPECIMENOrdering Facility: [facility] Address: [address] [place] [address] Performed By: #### 2 4321-2 ####[facility]ORYCLIA [id number] [place] [address] [place] Chloride [Moles/Vol] 108 mmol/L High 97-105 [facility] Comment on above: Order Comment: Speci men Type: BLOOD SPECIMENOrdering Facility: [facility] Address: [address] [place] [address] Performed By: #### 2 4321-2 ####[facility]ORYCLIA [id number] [place] [id number] [place] CO2 [Moles/Vol] 24 mmol/L Normal 22-30 [facility] Comment on above: Order Comment: Speci men Type: BLOOD SPECIMENOrdering Facility: [facility] Address: [address] [place] [address] Performed By: #### 2 4321-2 ####[facility] [id number] [place] [address] [place] Creatinine [Mass/Vol] 0.74 mg/dL Normal 0.58-0.96 [facility] Comment on above: Order Comment: Speci men Type: BLOOD SPECIMENOrdering Facility: [facility] Address: [address] [place] [address] Performed By: #### 2 4321-2 ####[facility] LABORATORYIA [id number] [place] [address] [place] Creatinine and Glomerular filtration rate.predicted panel (S/P/Bld) 110 mL/min/1.73m??? Normal >=60 [facility] l Comment on above: Order Comment: Speci men Type: BLOOD SPECIMENOrdering Facility: [facility] Address: [address] [place] [address] Result Comment: Jessica mated Glomerular Filtration Rate (eGFR) is calculated [...] actual GFR. Performed By: #### 2 4321-2 ####[facility]ATORYIA [id number] [place] [address] [place] Glucose [Mass/Vol] 82 mg/dL Normal 74-99 [facility] Comment on above: Order Comment: Geraldo men Type: BLOOD SPECIMENOrdering Facility: [facility] Address: [address] [place] [id number] Result Comment: The [place] [employer] (ADA) provides guidance for cutoff [...] Standards of Medical Care in Diabetes 2016, [place] [employer]. Diabetes Care. 2016.39(Suppl 1). Performed By: #### 2 4321-2 ####[facility]ATORYIA [id number] [place] [address] [place] Potassium [Moles/Vol] 3.9 mmol/L Normal 3.7-5.1 [facility] Comment on above: Order Comment: Geraldo marrero Type: BLOOD SPECIMENOrdering Facility: [facility] Address: [address] [place] [id number] Performed By: #### 2 4321-2 ####[facility] LABORATORYIA [id number] [place] [address] [place] Sodium [Moles/Vol] 140 mmol/L Normal 136-144 [facility] Comment on above: Order Comment: Geraldo men Type: BLOOD SPECIMENOrdering Facility: [facility] Address: [address] [place] [address] Performed By: #### 2 4321-2 ####[facility]ORATORYCLIA [id number] [place] [address] [place] Urea nitrogen [Mass/Vol] 8 mg/dL Normal 7-21 [facility] Comment on above: Order Comment: Speci men Type: BLOOD SPECIMENOrdering Facility: [facility] Address: [address] [place] [place] [address] Performed By: #### 2 4321-2 ####[facility]ORATORYCLIA [id number] [address] [place] CASE MGT INIT [facility] 2022 CASE MGT INIT [facility] CBC panel Auto (Bld)on 11-06 Erythrocyte distribution width (RBC) [Ratio] 13.3 % Normal 11.5-15.0 [facility] Comment on above: Order Comment: Speci men Type: BLOOD SPECIMENOrdering Facility: [facility] Address: [address] [place] [place] [address] Performed By: #### 5 8410-2 ####[facility] LABORATORYCLIA [id number] [place] [address] [place] Hematocrit (Bld) [Volume fraction] 34.5 % Low 36.0-46.0 [facility] Comment on above: Order Comment: Speci men Type: BLOOD SPECIMENOrdering Facility: [facility] Address: [address] Performed By: #### 5 8410-2 ####[facility] LABORATORYCLIA [id number] [place] [address] [place] Hemoglobin (Bld) [Mass/Vol] 11.4 g/dL Low 11.5-15.5 [facility] Comment on above: Order Comment: Speci men Type: BLOOD SPECIMENOrdering Facility: [facility] Address: [address] [place] [place] [address] Performed By: #### 5 8410-2 ####[facility] [id number] [address] [place] MCH (RBC) [Entitic mass] 30.8 pg Normal 26.0-34.0 [facility] Comment on above: Order Comment: Speci men Type: BLOOD SPECIMENOrdering Facility: [facility] Address: [address] [place] [address] Performed By: #### 5 8410-2 ####[facility] [id number] [address] [place] MCHC (RBC) [Mass/Vol] 33.0 g/dL Normal 30.5-36.0 [facility] Comment on above: Order Comment: Speci men Type: BLOOD SPECIMENOrdering Facility: [facility] Address: [address] [place] [address] Performed By: #### 5 8410-2 ####[facility] [id number] [address] [place] MCV (RBC) [Entitic vol] 93.2 fL Normal 80.0-100.0 [facility] Comment on above: Order Comment: Speci men Type: BLOOD SPECIMENOrdering Facility: [facility] Address: [address] [place] [address] Performed By: #### 5 8410-2 ####[facility] [id number] [address] [place] Nucleated RBC (Bld) [#/Vol] 10*3/uL Normal <0.01 [facility] Comment on above: Order Comment: Speci men Type: BLOOD SPECIMENOrdering Facility: [facility] Address: [address] [place] [address] Performed By: #### 5 8410-2 ####[facility] [id number] [address] [place] Platelet mean volume (Bld) [Entitic vol] 11.3 fL Normal 9.0-12.7 [facility] Comment on above: Order Comment: Speci men Type: BLOOD SPECIMENOrdering Facility: [facility] Address: [address] [place] [address] Performed By: #### 5 8410-2 ####[facility] [id number] [place] [id number] [place] Platelets (Bld) [#/Vol] 225 10*3/uL Normal 150-400 [facility] Comment on above: Order Comment: Speci men Type: BLOOD SPECIMENOrdering Facility: [facility] Address: [address] [place] [address] Performed By: #### 5 8410-2 ####[facility] [id number] [place] [address] [place] RBC (Bld) [#/Vol] 3.70 10*6/uL Low 3.90-5.20 [facility] Comment on above: Order Comment: Speci men Type: BLOOD SPECIMENOrdering Facility: [facility] Address: [address] [place] [address] Performed By: #### 5 8410-2 ####[facility] [id number] [place] [address] [place] WBC (Bld) [#/Vol] 3.98 10*3/uL Normal 3.70-11.00 [facility] Comment on above: Order Comment: Speci men Type: BLOOD SPECIMENOrdering Facility: [facility] Address: [address] [place] [address] Performed By: #### 5 8410-2 ####[facility] [id number] [place] [id number] [place] CNPNon 11-06-2022 CNPN Normal [facility] CONSULT PROGon 11-06-2022 CONSULT PROG Normal [facility] CON[facility] Normal [facility] NM HEPATOBILIARY W EF AND/OR RXon 11-06-2022 NM HEPATOBILIARY W EF AND/OR RX Normal [facility] CBC W Auto Differential pane l (Bld)on 11-05-2022 Basophils (Bld) [#/Vol] 0.03 10*3/uL Normal <0.11 [facility] Comment on above: Order Comment: Speci men Type: BLOOD SPECIMENOrdering Facility: [facility] Address: [address] [place] [place] [address] Performed By: #### 5 7021-8 ####[facility] LABORATORYCLIA [id number] [facility] [place] [address] [place] Basophils/100 WBC (Bld) 0.6 % Normal [facility] Comment on above: Order Comment: Speci men Type: BLOOD SPECIMENOrdering Facility: [facility] Address: [address] [place] [address] Performed By: #### 5 7021-8 ####[facility]ORATORYCLIA [id number] [place] [address] [place] Differential cell count method Nom (Bld) Auto Normal [facility] Comment on above: Order Comment: Speci men Type: BLOOD SPECIMENOrdering Facility: [facility] [facility] Address: [address] [address] Performed By: #### 5 7021-8 ####[facility] LABORATORYIA [id number] [place] [address] [place] Eosinophils (Bld) [#/Vol] 0.08 10*3/uL Normal <0.46 [facility] Comment on above: Order Comment: Speci men Type: BLOOD SPECIMENOrdering Facility: [facility] Address: [address] [address] Performed By: #### 5 7021-8 ####[facility] LABORATORYCLIA [id number] [facility] [place] [address] [place] Eosinophils/100 WBC (Bld) 1.5 % Normal [facility] Comment on above: Order Comment: Speci men Type: BLOOD SPECIMENOrdering Facility: [facility] Address: [address] [address] Performed By: #### 5 7021-8 ####[facility] LABORATORYCLIA [id number] [place] [address] [place] Erythrocyte distribution width (RBC) [Ratio] 13.3 % Normal 11.5-15.0 [facility] Comment on above: Order Comment: Speci men Type: BLOOD SPECIMENOrdering Facility: [facility] Address: [address] [address] Performed By: #### 5 7021-8 ####[facility]ORATORYCLIA [id number] [place] [address] [place] Hematocrit (Bld) [Volume fraction] 40.5 % Normal 36.0-46.0 [facility] Comment on above: Order Comment: Speci men Type: BLOOD SPECIMENOrdering Facility: [facility] Address: [address] [address] Performed By: #### 5 7021-8 ####[facility]ORYIA [id number] [place] [address] [place] Hemoglobin (Bld) [Mass/Vol] 13.3 g/dL Normal 11.5-15.5 [facility] Comment on above: Order Comment: Speci men Type: BLOOD SPECIMENOrdering Facility: [facility] Address: [address] [place] [address] Performed By: #### 5 7021-8 ####[facility]ATORYIA [id number] [place] [address] [place] Immature granulocytes (Bld) [#/Vol] 10*3/uL Normal <0.10 [facility] Comment on above: Order Comment: Speci men Type: BLOOD SPECIMENOrdering Facility: [facility] Address: [address] [address] Performed By: #### 5 7021-8 ####[facility]ORYIA [id number] [address] [place] Immature granulocytes/100 WBC (Bld) 0.4 % Normal [facility] Comment on above: Order Comment: Speci men Type: BLOOD SPECIMENOrdering Facility: [facility] Address: [address] [place], [place] [address] Performed By: #### 5 7021-8 ####[facility]ORYIA [id number] [place] [address] [place] Lymphocytes (Bld) [#/Vol] 2.53 10*3/uL Normal 1.00-4.00 [facility] Comment on above: Order Comment: Speci men Type: BLOOD SPECIMENOrdering Facility: [facility] Address: [address] [address] Performed By: #### 5 7021-8 ####[facility] [id number] [address] [place] Lymphocytes/100 WBC (Bld) 48.5 % Normal [facility] Comment on above: Order Comment: Speci men Type: BLOOD SPECIMENOrdering Facility: [facility] Address: [address] [address] Performed By: #### 5 7021-8 ####[facility]ITALIA [id number] [place] [address] [place] MCH (RBC) [Entitic mass] 30.4 pg Normal 26.0-34.0 [facility] Comment on above: Order Comment: Speci men Type: BLOOD SPECIMENOrdering Facility: [facility] Address: [address] [address] Performed By: #### 5 7021-8 ####[facility]PITALIA [id number] [place] [address] [place] MCHC (RBC) [Mass/Vol] 32.8 g/dL Normal 30.5-36.0 [facility] Comment on above: Order Comment: Speci men Type: BLOOD SPECIMENOrdering Facility: [facility] Address: [address] Performed By: #### 5 7021-8 ####[facility]ATORYIA [id number] [place] [id number] [place] MCV (RBC) [Entitic vol] 92.7 fL Normal 80.0-100.0 [facility] Comment on above: Order Comment: Speci men Type: BLOOD SPECIMENOrdering Facility: [facility] Address: [address] [address] Performed By: #### 5 7021-8 ####[facility]ORATORYCLIA [id number] [place] [address] [place] Monocytes (Bld) [#/Vol] 0.30 10*3/uL Normal <0.87 [facility] Comment on above: Order Comment: Speci men Type: BLOOD SPECIMENOrdering Facility: [facility] Address: [address] [address] Performed By: #### 5 7021-8 ####[facility]ITALIA [id number] [place] [address] [place] Monocytes/100 WBC (Bld) 5.7 % Normal [facility] Comment on above: Order Comment: Speci men Type: BLOOD SPECIMENOrdering Facility: [facility] Address: [address] [address] Performed By: #### 5 7021-8 ####[facility]ITALIA [id number] [place] [address] [place] Neutrophils (Bld) [#/Vol] 2.26 10*3/uL Normal 1.45-7.50 [facility] Comment on above: Order Comment: Speci men Type: BLOOD SPECIMENOrdering Facility: [facility] Address: [address] [address] Performed By: #### 5 7021-8 ####[facility]ORATORYCLIA [id number] [place] [address] [place] Neutrophils/100 WBC (Bld) 43.3 % Normal [facility] Comment on above: Order Comment: Speci men Type: BLOOD SPECIMENOrdering Facility: [facility] Address: [address] [address] Performed By: #### 5 7021-8 ####[facility]ORATORYCLIA [id number] [place] [address] [place] Nucleated RBC (Bld) [#/Vol] 10*3/uL Normal <0.01 [facility] Comment on above: Order Comment: Speci men Type: BLOOD SPECIMENOrdering Facility: [facility] Address: [address] [address] Performed By: #### 5 7021-8 ####[facility]ORATORYCLIA [id number] [place] [id number] [place] Nucleated RBC/100 WBC (Bld) [Ratio] 0.0 /100 WBC Normal [facility] Comment on above: Order Comment: Speci men Type: BLOOD SPECIMENOrdering Facility: [facility] Address: [address] [place] [address] Performed By: #### 5 7021-8 ####[facility]ORYIA [id number] [place] [address] [place] Platelet mean volume (Bld) [Entitic vol] 11.4 fL Normal 9.0-12.7 [facility] Comment on above: Order Comment: Speci men Type: BLOOD SPECIMENOrdering Facility: [facility] Address: [address] [place] [address] Performed By: #### 5 7021-8 ####[facility]ORYIA [id number] [place] [address] [place] Platelets (Bld) [#/Vol] 207 10*3/uL Normal 150-400 [facility] Comment on above: Order Comment: Speci men Type: BLOOD SPECIMENOrdering Facility: [facility] Address: [address] [address] Performed By: #### 5 7021-8 ####[facility]ORYIA [id number] [place] [address] [place] RBC (Bld) [#/Vol] 4.37 10*6/uL Normal 3.90-5.20 [facility] Comment on above: Order Comment: Speci men Type: BLOOD SPECIMENOrdering Facility: [facility] Address: [address] Performed By: #### 5 7021-8 ####[facility]ORATORYCLIA [id number] [place] [address] [place] WBC (Bld) [#/Vol] 5.22 10*3/uL Normal 3.70-11.00 [facility] Comment on above: Order Comment: Speci men Type: BLOOD SPECIMENOrdering Facility: [facility] Address: [address] Performed By: #### 5 7021-8 ####[facility]ORATORYCLIA [id number] [place] [address] [place] CNPNon 11-05-2022 CNPN Normal [facility] CONSULTon 11-05-2022 CONSULT Normal [facility] CONSULT Normal [facility] Comprehensive metabolic 2000 panelon 11-05-2022 Albumin [Mass/Vol] 4.2 g/dL Normal 3.9-4.9 [facility] Comment on above: Order Comment: Speci men Type: BLOOD SPECIMENOrdering Facility: [facility] Address: [address] Performed By: #### 3 040-3, 74210-7 ####[facility]ITALIA [id number] [place] [address] [place] ALP [Catalytic activity/Vol] 71 U/L Normal 34-123 [facility] Comment on above: Order Comment: Speci men Type: BLOOD SPECIMENOrdering Facility: [facility] Address: [address] Performed By: #### 3 040-3, 40329-4 ####[facility]ORYIA [id number] [place] [address] [place] ALT [Catalytic activity/Vol] 15 U/L Normal 7-38 [facility] Comment on above: Order Comment: Speci men Type: BLOOD SPECIMENOrdering Facility: [facility] Address: [address] Performed By: #### 3 040-3, 02025-9 ####[facility]ORATORYCLIA [id number] [facility] [place] [place] [address] [place] Anion gap [Moles/Vol] 12 mmol/L Normal 9-18 [facility] Comment on above: Order Comment: Speci men Type: BLOOD SPECIMENOrdering Facility: [facility] Address: [address] Performed By: #### 3 -3, 65325-2 ####[facility]ORATORYCLIA [id number] [place] [address] [place] AST [Catalytic activity/Vol] 26 U/L Normal 13-35 [facility] Comment on above: Order Comment: Speci men Type: BLOOD SPECIMENOrdering Facility: [facility] Address: [address] [place] [address] Performed By: #### 3 -3, 96974-1 ####[facility]ORYIA [id number] [place] [address] [place] Bilirubin [Mass/Vol] 0.4 mg/dL Normal 0.2-1.3 [facility] Comment on above: Order Comment: Speci men Type: BLOOD SPECIMENOrdering Facility: [facility] Address: [address] [place] [address] Performed By: #### 3 040-3, 00321-2 ####[facility]ORATORYCLIA [id number] [facility] [place] [place] [address] [place] Calcium [Mass/Vol] 8.6 mg/dL Normal 8.5-10.2 [facility]ital Comment on above: Order Comment: Speci men Type: BLOOD SPECIMENOrdering Facility: [facility] Address: [address] [place], [place] [address] Performed By: #### 3 040-3, 34372-3 ####[facility]ORATORYCLIA [id number] [facility] [place] [address] [place] Chloride [Moles/Vol] 107 mmol/L High 97-105 [facility] Comment on above: Order Comment: Speci men Type: BLOOD SPECIMENOrdering Facility: [facility] Address: [address] [address] Performed By: #### 3 040-3, 22410-2 ####[facility]ORATORYCLIA [id number] [place], [place] [address] [place] [address] [place] CO2 [Moles/Vol] 22 mmol/L Normal 22-30 [facility] Comment on above: Order Comment: Speci men Type: BLOOD SPECIMENOrdering Facility: [facility] Address: [address] [address] Performed By: #### 3 040-3, ####[facility]ORYIA [id number] [address] [facility] Creatinine [Mass/Vol] 0.87 mg/dL Normal 0.58-0.96 [facility] Comment on above: Order Comment: Speci men Type: BLOOD SPECIMENOrdering Facility: [facility] Address: [address] [address] Performed By: #### 3 040-3, ####[facility]ORYIA [id number] [address] Creatinine and Glomerular filtration rate.predicted panel (S/P/Bld) 90 mL/min/1.73m??? Normal >=60 [facility] Comment on above: Order Comment: Speci men Type: BLOOD SPECIMENOrdering Facility: [facility] Address: [address] [place] [address] Result Comment: Jessica mated Glomerular Filtration Rate (eGFR) is calculated [...] actual GFR. Performed By: #### 3 040-3, 49905-4 ####[facility]ORATORYCLIA [id number] [place] [address] [place] Glucose [Mass/Vol] 87 mg/dL Normal 74-99 [facility] Comment on above: Order Comment: Speci men Type: BLOOD SPECIMENOrdering Facility: [facility] Address: [address] [place] [address] Result Comment: The [place] [employer] (ADA) provides guidance for cutoff [...] Standards of Medical Care in Diabetes 2016, [place] [employer]. Diabetes Care. 2016.39(Suppl 1). Performed By: #### 3 040-3, 42498-5 ####[facility]ITALIA [id number] [place] [address] [place] Potassium [Moles/Vol] 3.5 mmol/L Low 3.7-5.1 [facility] Comment on above: Order Comment: [place] men Type: BLOOD SPECIMENOrdering Facility: [facility] Address: [address] [place] [address] Performed By: #### 3 040-3, 20377-0 ####[facility]ORATORYCLIA [id number] [place] [address] [place] Protein [Mass/Vol] 6.6 g/dL Normal 6.3-8.0 [facility] Comment on above: Order Comment: Speci men Type: BLOOD SPECIMENOrdering Facility: [facility] Address: [address] [place] [address] Performed By: #### 3 040-3, 19138-2 ####[facility]ATORYIA [id number] [place] [address] [place] Sodium [Moles/Vol] 141 mmol/L Normal 136-144 [facility] Comment on above: Order Comment: Speci men Type: BLOOD SPECIMENOrdering Facility: [facility] Address: [place] [address] Performed By: #### 3 040-3, 49143-6 ####[facility]ORATORYCLIA [id number] [facility] [place] [place] [address] [place] Urea nitrogen [Mass/Vol] 9 mg/dL Normal 7- [facility] Comment on above: Order Comment: Speci men Type: BLOOD SPECIMENOrdering Facility: [facility] Address: [address] [place] [address] Performed By: #### 3 040-3, 02109-5 ####[facility]ORATORYCLIA [id number] [place] [address] [place] ECG COMPLETEon 11-05-2022 ECG COMPLETE Normal [facility] ED NOTEon 11-05-2022 ED NOTE HNO ID: [id number] Author: Joanne Mario RN Service: ? Author Type: Registered Nurse Type: ED Notes Filed: 11/05/2022 1:56 PM Note Text: Attempt to call report, Nurse taking patient is ROHIT. Will return call when nurse available. Normal [facility] ED NOTE HNO ID: [id number] Author: Joanne Mario RN Service: ? Author Type: Registered Nurse Type: ED Notes Filed: 11/05/2022 1:28 PM Note Text: Patient refused all daily meds but reglan due to nausea. Normal [facility] ED PROV NOTEon 11-05-2022 ED PROV NOTE Normal [facility] HISTORY PHYSICALon HISTORY PHYSICAL Normal [facility] pital Lipase SerPl-cCncon 11-06-19 23 Lipase [Catalytic activity/Vol] 38 U/L Normal 16-61 [facility] Comment on above: Order Comment: Speci men Type: BLOOD SPECIMENOrdering Facility: [facility] Address: [place] [address] Performed By: #### 3 040-3, 08332-2 ####[facility]ORATORYCLIA [id number] [facility] [place] [address] [place] NURSING PROGon 11-05-2022 NURSING PROG Normal [facility] XR ABD 2V SUPINE W UPR/DECUB /CTLon 11-05-2022 XR ABD 2V SUPINE W UPR/DECUB/CTL Normal [facility] 25(OH)D3 SerPl-ncon 2022 25-hydroxyvitamin D3 [Mass/Vol] 29.0 ng/mL Low 31.0-80.0 [facility] Comment on above: Order Comment: Speci men Type: BLOOD SPECIMENOrdering Facility: [facility] Address: [address] [place] [address] Result Comment: Clas sification of 25 [place] Vitamin D status:Deficiency/Insufficiency: < or = 30 ng/ml.Sufficiency/Optimal Levels: 31-80 ng/mLToxicity: > 100 ng/mL.Test performed by chemiluminescent immunoassay. Performed By: #### 1 989-3 ####[facility] LABCLIA [id number] [address] [place] Amylase SerPl-cCncon 023 Amylase [Catalytic activity/Vol] 40 U/L Normal 30-104 [facility] Comment on above: Order Comment: Speci men Type: BLOOD SPECIMENOrdering Facility: [facility] Address: [address] [place] [address] Performed By: #### 1 798-8, 2731-8, 2132-9, 2284-8 ####[facility] LABIA [id number] [place] [address] [place] CBC panel Auto (Bld)on 11-04 Erythrocyte distribution width (RBC) [Ratio] 13.2 % Normal 11.5-15.0 [facility] Comment on above: Order Comment: Speci men Type: BLOOD SPECIMENOrdering Facility: [facility] Address: [address] [place] [address] Performed By: #### 5 8410-2 ####[facility] LABIA [id number] [address] [place] Hematocrit (Bld) [Volume fraction] 40.5 % Normal 36.0-46.0 [facility] Comment on above: Order Comment: Speci men Type: BLOOD SPECIMENOrdering Facility: [facility] Address: [address] [place] [address] Performed By: #### 5 8410-2 ####[facility] LABIA [id number] [place] [address] [place] Hemoglobin (Bld) [Mass/Vol] 13.6 g/dL Normal 11.5-15.5 [facility] Comment on above: Order Comment: Speci men Type: BLOOD SPECIMENOrdering Facility: [facility] Address: [address] [place] [address] Performed By: #### 5 8410-2 ####[facility] [id number] [address] [place] MCH (RBC) [Entitic mass] 30.7 pg Normal 26.0-34.0 [facility] Comment on above: Order Comment: Speci men Type: BLOOD SPECIMENOrdering Facility: [facility] Address: [address] [place] [address] Performed By: #### 5 8410-2 ####[facility] LABIA [id number] [place] [address] [place] MCHC (RBC) [Mass/Vol] 33.6 g/dL Normal 30.5-36.0 [facility] Comment on above: Order Comment: Speci men Type: BLOOD SPECIMENOrdering Facility: [facility] Address: [address] [place] [address] Performed By: #### 5 8410-2 ####[facility] LABUNIV[facility] [id number] [address] [place] MCV (RBC) [Entitic vol] 91.4 fL Normal 80.0-100.0 [facility] Comment on above: Order Comment: Speci men Type: BLOOD SPECIMENOrdering Facility: [facility] Address: [address] [place], [place] [address] Performed By: #### 5 8410-2 ####[facility] LABIA [id number] [place] [address] [place] Nucleated RBC (Bld) [#/Vol] 10*3/uL Normal <0.01 [facility] Comment on above: Order Comment: Speci men Type: BLOOD SPECIMENOrdering Facility: [facility] Address: [address] [place], [place] [address] Performed By: #### 5 8410-2 ####[facility] LABIA [id number] [place] [address] [place] Platelet mean volume (Bld) [Entitic vol] 12.1 fL Normal 9.0-12.7 [facility] Comment on above: Order Comment: Speci men Type: BLOOD SPECIMENOrdering Facility: [facility] Address: [address] [place], [place] [address] Performed By: #### 5 8410-2 ####[facility] LABIA [id number] [place] [address] [place] Platelets (Bld) [#/Vol] 313 10*3/uL Normal 150-400 [facility] Comment on above: Order Comment: Speci men Type: BLOOD SPECIMENOrdering Facility: [facility] Address: [address] [place], [place] [address] Performed By: #### 5 8410-2 ####[facility] LABIA [id number] [place] [address] [place] RBC (Bld) [#/Vol] 4.43 10*6/uL Normal 3.90-5.20 [facility] Comment on above: Order Comment: Speci men Type: BLOOD SPECIMENOrdering Facility: [facility] Address: [address] [place], [place] [address] Performed By: #### 5 8410-2 ####[facility] LABCLIA [id number] [place] [address] [place] WBC (Bld) [#/Vol] 6.69 10*3/uL Normal 3.70-11.00 [facility] Comment on above: Order Comment: Speci men Type: BLOOD SPECIMENOrdering Facility: [facility] Address: [address] [place], [place] [address] Performed By: #### 5 8410-2 ####[facility] LABCLIA [id number] [place] [address] [place] CNCOon 11-04-2022 CNCO Letter Text Normal [facility] CNOVon 11-04-2022 CNOV Normal [facility] Comprehensive metabolic 2000 panelon 11-04-2022 Albumin [Mass/Vol] 4.3 g/dL Normal 3.9-4.9 [facility] Comment on above: Order Comment: Speci men Type: BLOOD SPECIMENOrdering Facility: [facility] Address: [address] [place], [place] [address] Performed By: #### 5 0190-8, 3040-3, 2276-4, 01415-2 ####[facility] LABCLIA [id number] [place] [address] [place] ALP [Catalytic activity/Vol] 69 U/L Normal 34-123 [facility] Comment on above: Order Comment: Speci men Type: BLOOD SPECIMENOrdering Facility: [facility] Address: [address] [place], [place] [address] Performed By: #### 5 0190-8, 3040-3, 2276-4, 40571-6 ####[facility] LABCLIA [id number] [place] [address] [place] ALT [Catalytic activity/Vol] 16 U/L Normal 7-38 [facility] Comment on above: Order Comment: Speci men Type: BLOOD SPECIMENOrdering Facility: [facility] Address: [address] [place], [place] [address] Performed By: #### 5 0190-8, 3040-3, 2276-4, 85110-6 ####[facility] LABIA [id number] [place] [address] [place] Anion gap [Moles/Vol] 13 mmol/L Normal 9-18 [facility] Comment on above: Order Comment: Speci men Type: BLOOD SPECIMENOrdering Facility: [facility] Address: [address] [place] [address] Performed By: #### 5 0190-8, 3040-3, 2275-4, 90628-8 ####[facility] LABIA [id number] [address] [place] AST [Catalytic activity/Vol] 25 U/L Normal 13-35 [facility] Comment on above: Order Comment: Speci men Type: BLOOD SPECIMENOrdering Facility: [facility] Address: [address] [place], [place] [address] Performed By: #### 5 0190-8, 3040-3, 2275-4, 01788-8 ####[facility] LABIA [id number] [place] [address] [place] Bilirubin [Mass/Vol] 0.3 mg/dL Normal 0.2-1.3 [facility] Comment on above: Order Comment: Speci men Type: BLOOD SPECIMENOrdering Facility: [facility] Address: [address] [place], [place] [address] Performed By: #### 5 0190-8, 3040-3, 6-4, 36923-8 ####[facility] LABIA [id number] [place] [address] [place] Calcium [Mass/Vol] 9.1 mg/dL Normal 8.5-10.2 [facility] Comment on above: Order Comment: Speci men Type: BLOOD SPECIMENOrdering Facility: [facility] Address: [address] [place] [address] Performed By: #### 5 0190-8, 3040-3, 2276-4, 68380-7 ####[facility] LABCLIA [id number] [place] [address] [place] Chloride [Moles/Vol] 105 mmol/L Normal 97-105 [facility] Comment on above: Order Comment: Speci men Type: BLOOD SPECIMENOrdering Facility: [facility] Address: [address] [place] [address] Performed By: #### 5 0190-8, 3040-3, 2275-4, 03174-5 ####[facility] LABCLIA [id number] [place] [address] [place] CO2 [Moles/Vol] 19 mmol/L Low 22-30 [facility] Comment on above: Order Comment: Speci men Type: BLOOD SPECIMENOrdering Facility: [facility] Address: [address] [place] [address] Performed By: #### 5 0190-8, 3040-3, 2275-4, 03053-3 ####[facility] LABIA [id number] [place] [address] [place] Creatinine [Mass/Vol] 0.77 mg/dL Normal 0.58-0.96 [facility] Comment on above: Order Comment: Speci men Type: BLOOD SPECIMENOrdering Facility: [facility] Address: [address] [place], [place] [id number] Performed By: #### 5 0190-8, 3040-3, 6-4, 01294-5 ####[facility] LABCLIA [id number] [address] [id number] Creatinine and Glomerular filtration rate.predicted panel (S/P/Bld) 105 mL/min/1.73m??? Normal >=60 [facility] Comment on above: Order Comment: Geraldo marrero Type: BLOOD SPECIMENOrdering Facility: [facility] Address: [address] [address] Result Comment: Jessica mated Glomerular Filtration Rate (eGFR) is calculated using the 2020 CKD-EPI creatinine equation. This equation utilizes serum creatinine, sex, and age as parameters. The creatinine assay has traceable calibration to isotope dilution-mass spectrometry. Refer to KDIGO guidelines for clinical interpretation. In patients with unstable renal function, e.g. those with acute kidney injury, the eGFR may not accurately reflect actual GFR. Performed By: #### 5 0190-8, 3040-3, 6-4, 50319-2 ####[facility] LABCLIA [id number] [address] [place] Glucose [Mass/Vol] 224 mg/dL High 74-99 [facility] Comment on above: Order Comment: Geraldo marrero Type: BLOOD SPECIMENOrdering Facility: [facility] Address: [address] [place] [address] Result Comment: The [place] Diabetes Association (ADA) provides guidance for cutoff [...] Standards of Medical Care in Diabetes 2016, [place] [employer]. Diabetes Care. 2016.39(Suppl 1). Performed By: #### 5 0190-8, 3040-3, 2276-4, 23418-6 ####[facility] LABCLIA [id number] [address] [id number] [facility] [place] Potassium [Moles/Vol] 3.7 mmol/L Normal 3.7-5.1 [facility] Comment on above: Order Comment: Speci men Type: BLOOD SPECIMENOrdering Facility: [facility] Address: [address] [place] [address] Performed By: #### 5 0190-8, 3040-3, 6-4, 66078-9 ####[facility] LABCLIA [id number] [place] [address] [place] Protein [Mass/Vol] 6.9 g/dL Normal 6.3-8.0 [facility] Comment on above: Order Comment: Speci men Type: BLOOD SPECIMENOrdering Facility: [facility] Address: [address] [place] [address] Performed By: #### 5 0190-8, 3040-3, 2275-4, 88034-8 ####[facility] LABCLIA [id number] [place] [address] [place] Sodium [Moles/Vol] 137 mmol/L Normal 136-144 [facility] Comment on above: Order Comment: Speci men Type: BLOOD SPECIMENOrdering Facility: [facility] Address: [address] [place] [address] Performed By: #### 5 0190-8, 3040-3, 2275-4, 26095-3 ####[facility] LABCLIA [id number] [place] [address] [place] Urea nitrogen [Mass/Vol] 9 mg/dL Normal 7-21 [facility] Comment on above: Order Comment: Speci men Type: BLOOD SPECIMENOrdering Facility: [facility] Address: [address] [place] [address] Performed By: #### 5 0190-8, 3040-3, 6-4, 17520-0 ####[facility] LABCLIA [id number] [place] [address] [place] Fer[facility]in [facility] Ferritin [Mass/Vol] 13.2 ng/mL Low 14.7-205.1 [facility] Comment on above: Order Comment: Speci men Type: BLOOD SPECIMENOrdering Facility: [facility] Address: [address] [place] [address] Performed By: #### 5 0190-8, 3040-3, 6-4, 10400-1 ####[facility] LABCLIA [id number] [place] [address] [place] Folate SerPl-mCncon 11-05-19 Folate [Mass/Vol] 9.3 ng/mL Normal >4.7 [facility] Comment on above: Order Comment: Speci men Type: BLOOD SPECIMENOrdering Facility: [facility] Address: [address] [place] [address] Performed By: #### 1 798-8, 2731-8, 2132-9, 2284-8 ####[facility] LABIA [id number] [place] [address] [place] Iron and Iron binding capaci panelon 11-04-2022 Iron [Mass/Vol] 52 ug/dL Normal 41-186 [facility] Comment on above: Order Comment: Speci men Type: BLOOD SPECIMENOrdering Facility: [facility] Address: [address] [place] [address] Performed By: #### 5 0190-8, 3040-3, 6-4, 88571-8 ####[facility] LABIA [id number] [place] [address] [place] Iron binding capacity [Mass/Vol] 348 ug/dL Normal 232-386 [facility] Comment on above: Order Comment: Speci men Type: BLOOD SPECIMENOrdering Facility: [facility] Address: [address] [place] [address] Performed By: #### 5 0190-8, 3040-3, 2276-4, 73968-1 ####[facility] LABIA [id number] [place] [address] [place] Iron/TIBC [Molar ratio] 14.9 % Low 15.0-57.0 [facility] Comment on above: Order Comment: Speci men Type: BLOOD SPECIMENOrdering Facility: [facility] Address: [address] [address] Performed By: #### 5 0190-8, 3040-3, 2276-4, 44254-5 ####[facility] LABIA [id number] [place] [address] [place] Lipase SerPl-cCncon 11-05-19 23 Lipase [Catalytic activity/Vol] 35 U/L Normal 16-61 [facility] Comment on above: Order Comment: Speci men Type: BLOOD SPECIMENOrdering Facility: [facility] Address: [address] [address] Performed By: #### 5 0190-8, 3040-3, 2276-4, 49516-4 ####[facility] LABIA [id number] [address] [place] PTH-Intact [facility]-ncon - Parathyrin.intact [Mass/Vol] 27 pg/mL Normal 15-65 [facility] Comment on above: Order Comment: Speci men Type: BLOOD SPECIMENOrdering Facility: [facility] Address: [address] [address] Performed By: #### 1 798-8, 2731-8, 2132-9, 2284-8 ####[facility] LABIA [id number] [place] [address] [place] US ABD RIGHT UPPER QUADRANTo n 11-04-2022 US ABD RIGHT UPPER QUADRANT Normal [facility] VITAMIN B1 (THIAMINE), WHOLE BLOODon 11-04-2022 Thiamine (Bld) [Moles/Vol] 165.0 nmol/L Normal 84.3-213.3 [facility] Comment on above: Order Comment: Geraldo marrero Type: BLOOD SPECIMENOrdering Facility: [facility] Address: [address] [place] [address] Result Comment: This assay measures the concentration of thiamine diphosphate (TDP), the primary active form of vitamin B1. Approximately 90 percent of vitamin B1 present in whole blood is TDP. Thiamine and thiamine monophosphate, which comprise the remaining 10 percent, are not measured.This test was developed and its performance characteristics determined by [facility] [place] ([facility]). It has not been cleared or approved by the FDA. [facility] is regulated under CLIA as qualified to perform high-complexity testing. This test is used for clinical purposes. It should not be regarded as investigational or for research. Performed By: #### B 1WB ####[facility] LABCLIA [id number] [place] [address] [place] Vit A SerPl-mCncon 3 Retinol [Mass/Vol] 0.44 mg/L Normal 0.30-1.20 [facility] Comment on above: Order Comment: Geraldo marrero Type: BLOOD SPECIMENOrdering Facility: [facility] Address: [address] [place] [address] Result Comment: This test was developed and its performance characteristics determined by [facility] [place] ([facility]). It has not been cleared or approved by the FDA. [facility] is regulated under CLIA as qualified to perform high-complexity testing. This test is used for clinical purposes. It should not be regarded as investigational or for research. Performed By: #### 2 923-1 ####[facility] LABCLIA [id number] [place] [address] [place] Vit B12 SerPl-mCncon 023 Cobalamin (Vitamin B12) [Mass/Vol] 1018 pg/mL Normal 232-1245 [facility] Comment on above: Order Comment: Speci men Type: BLOOD SPECIMENOrdering Facility: [facility] Address: [place] [address] Performed By: #### 1 798-8, 2731-8, 2132-9, 2284-8 ####[facility] LABCLIA [id number] [address] [place] [id number] [place] Zinc SerPl-mCncon 11-04-2022 Zinc [Mass/Vol] 51 ug/dL Low 60-120 [facility] Comment on above: Order Comment: Speci men Type: BLOOD SPECIMENOrdering Facility: [facility] Address: [address] [facility] [place] [id number] Result Comment: This test was developed and its performance characteristics determined by [facility]'s Lucie Harmon [facility] [place] ([facility] It has not been cleared or approved by the FDA. [facility] is regulated under CLIA as qualified to perform high-complexity testing. This test is used for clinical purposes. It should not be regarded as investigational or for research. Performed By: #### 5 763-8 ####[facility] LABCLIA [id number] [place] [address] [place] Ambulatory Visit Summaryon 0 11-03-2022 Ambulatory Visit Summary Normal [address] [place] [address]- \.br\ Medications\.br\ What How Much When Why Instructions\.br\ Unchanged busPIRone (busPIRone 10 mg Tab) 1 [...] Abnormal thyroid blood test\.br\ Arthritis\.br\ Asthma\.br\ BMI 30.0-30.9,adult\.br \ Depression\.br\ Gall stone\.br\ Hyperthyroidism\.br \ Kidney cysts\.br\ Kidney stone\.br\ LUQ pain\.br\ Mixed incontinence urge and stress\.br\ Nausea\.br\ Rash of body\.br\ Renal cyst\.br\ Right flank pain\.br\ Historical - Any problem that you are no longer receiving treatment for.\.br\ Allergic rhinitis\.br\ Anemia\.br\ Hypothyroidism\.br\ Metabolic syndrome\.br\ PCOS- polycystic ovary syndrome\.br\ \.br\ [facility] Family Medicine Office/Clini c Noteon 11-03-2022 Family Medicine Office/Clinic Note Normal [facility] Comment on above: Result Comment: Elec tronically Signed By: Jaquan Paula\.br\Date and Time Signed: 11/03/22 11:43 EDT Provider Letteron 11-03-2022 Provider Letter [facility] CBCon 11-02-2022 ABSOLUTE BAS 0.0 10*3/uL Normal 0.0-0.2 [facility] Comment on above: Performed By: #### A CBC, LIPA2, CMPF #### [place] [address] ABSOLUTE EOS 0.0 10*3/uL Normal 0.0-0.7 [facility] Comment on above: Performed By: #### A CBC, LIPA2, CMPF #### Testing performed at [address] [address] ABSOLUTE NEUTROPHIL COUNT 3.6 10*3/uL Normal 1.4-6.5 [facility] Comment on above: Performed By: #### A CBC, LIPA2, CMPF #### Testing performed at [address] [address] Basophils/100 WBC (Bld) 0.3 % Normal 0.0-2.0 [facility] Comment on above: Performed By: #### A CBC, LIPA2, CMPF #### Testing performed at [address] [address] DTYPE AUTO DIFF Normal [facility] Comment on above: Performed By: #### A CBC, LIPA2, CMPF #### Testing performed at [address] [address] Eosinophils/100 WBC (Bld) 0.1 % Normal 0.0-11.0 [facility] Comment on above: Performed By: #### A CBC, LIPA2, CMPF #### Testing performed at [address] [address] Lymphocytes (Bld) [#/Vol] 0.8 10*3/uL Low 1.2-3.4 [facility] Comment on above: Performed By: #### A CBC, LIPA2, CMPF #### Testing performed at [address] [address] Lymphocytes/100 WBC (Bld) 17.9 % Low 20.0-55.0 [facility] Comment on above: Performed By: #### A CBC, LIPA2, CMPF #### Testing performed at [address] [address] Monocytes (Bld) [#/Vol] 0.1 10*3/uL Normal 0.0-0.7 [facility] Comment on above: Performed By: #### A CBC, LIPA2, CMPF #### Testing performed at [address] [address] Monocytes/100 WBC (Bld) 2.3 % Normal 0.0-10.0 [facility] Comment on above: Performed By: #### A CBC, LIPA2, CMPF #### Testing performed at [address] [address] Neutrophils/100 WBC (Bld) 79.4 % High 37.0-75.0 [facility] Comment on above: Performed By: #### A CBC, LIPA2, CMPF #### Testing performed at [address] [address] Erythrocyte distribution width (RBC) [Ratio] 14.8 % High 11.5-14.5 [facility] Comment on above: Performed By: #### A CBC, LIPA2, CMPF #### Testing performed at [address] [address] Hematocrit (Bld) [Volume fraction] 38.8 % Normal 36.0-48.0 [facility] Comment on above: Performed By: #### A CBC, LIPA2, CMPF #### Testing performed at [address] [address] Hemoglobin (Bld) [Mass/Vol] 13.0 g/dL Normal 12.0-16.0 [facility] Comment on above: Performed By: #### A CBC, LIPA2, CMPF #### Testing performed at [address] [address] MCH (RBC) [Entitic mass] 30.6 pg Normal 26.0-35.0 [facility] Comment on above: Performed By: #### A CBC, LIPA2, CMPF #### Testing performed at [address] [address] MCHC (RBC) [Mass/Vol] 33.5 g/dL Normal 27.0-37.0 [facility] Comment on above: Performed By: #### A CBC, LIPA2, CMPF #### Testing performed at [address] [address] MCV (RBC) [Entitic vol] 91.2 fL Normal 80.0-100.0 [facility] Comment on above: Performed By: #### A CBC, LIPA2, CMPF #### Testing performed at [address] [address] Platelet mean volume (Bld) [Entitic vol] 9.9 fL Normal 7.4-11.0 [facility] Comment on above: Performed By: #### A CBC, LIPA2, CMPF #### Testing performed at [address] [address] Platelets (Bld) [#/Vol] 234 10*3/uL Normal 130-400 [facility] Comment on above: Performed By: #### A CBC, LIPA2, CMPF #### Testing performed at [address] [address] RBC (Bld) [#/Vol] 4.25 10*6/uL Normal 4.0-5.4 [facility] Comment on above: Performed By: #### A CBC, LIPA2, CMPF #### Testing performed at [address] [address] WBC (Bld) [#/Vol] 4.5 10*3/uL Normal 3.6-11.0 [facility] Comment on above: Performed By: #### A CBC, LIPA2, CMPF #### Testing performed at [address] [address] CBC, EDIF, PLATELETon 2022 ABSOLUTE BASOPHIL COUNT 0.0 10*3/uL 0.0 - 0.2 10*3/uL [facility] Basophils/100 WBC (Bld) 0.3 % 0.0 - 2.0 % [facility] Differential cell count method Nom (Bld) AUTO DIFF % [facility] Eosinophils (Bld) [#/Vol] 0.0 10*3/uL 0.0 - 0.7 10*3/uL [facility] Eosinophils/100 WBC (Bld) 0.1 % 0.0 - 11.0 % [facility] Erythrocyte distribution width (RBC) [Ratio] 14.8 % High 11.5 - 14.5 % [facility] Hematocrit (Bld) [Volume fraction] 38.8 % 36.0 - 48.0 % [facility] Hemoglobin (Bld) [Mass/Vol] 13.0 g/dL [facility] Interpretation and review of laboratory results Abnormal [facility] Lymphocytes (Bld) [#/Vol] 0.8 10*3/uL Low 1.2 - 3.4 10*3/uL [facility] Lymphocytes/100 WBC (Bld) 17.9 % Low 20.0 - 55.0 % [facility] MCH (RBC) [Entitic mass] 30.6 pg 26.0 - 35.0 PG [facility] MCHC (RBC) [Mass/Vol] 33.5 g/dL [facility] MCV (RBC) [Entitic vol] 91.2 fL [facility] Monocytes (Bld) [#/Vol] 0.1 10*3/uL 0.0 - 0.7 10*3/uL [facility] Monocytes/100 WBC (Bld) 2.3 % 0.0 - 10.0 % [facility] Neutrophils (Bld) [#/Vol] 3.6 10*3/uL 1.4 - 6.5 10*3/uL [facility] Neutrophils/100 WBC (Bld) 79.4 % High 37.0 - 75.0 % [facility] Platelet mean volume (Bld) [Entitic vol] 9.9 fL [facility] Platelets (Bld) [#/Vol] 234 10*3/uL 130 - 400 10*3/uL [facility] RBC (Bld) [#/Vol] 4.25 10*6/uL 4.0 - 5.4 10*6/u L [facility] WBC (Bld) [#/Vol] 4.5 10*3/uL 3.6 - 11.0 10*3/u L [facility] CMP FASTINGon 11-02-2022 A:G RATIO 1.5 RATIO Normal [facility] Comment on above: Performed By: #### A CBC, LIPA2, CMPF #### Testing performed at [address] [address] ALBUMIN 4.4 G/dl Normal 3.5-5.0 [facility] Comment on above: Performed By: #### A CBC, LIPA2, CMPF #### Testing performed at [address] [address] ALP [Catalytic activity/Vol] 87 U/L Normal 38-126 [facility] Comment on above: Performed By: #### A CBC, LIPA2, CMPF #### Testing performed at [address] [address] ALT [Catalytic activity/Vol] 22 U/L Normal <35 [facility] Comment on above: Performed By: #### A CBC, LIPA2, CMPF #### Testing performed at [address] [address] AST [Catalytic activity/Vol] 34 U/L Normal 14-36 [facility] Comment on above: Performed By: #### A CBC, LIPA2, CMPF #### Testing performed at [address] [address] Bilirubin [Mass/Vol] 0.4 mg/dL Normal 0.2-1.3 [facility] Comment on above: Performed By: #### A CBC, LIPA2, CMPF #### Testing performed at [address] [address] Calcium [Mass/Vol] 9.0 mg/dL Normal 8.4-10.2 [facility] Comment on above: Performed By: #### A CBC, LIPA2, CMPF #### Testing performed at [address] [address] Chloride [Moles/Vol] 106 mmol/L Normal 98-107 [facility] Comment on above: Result Comment: Plea note: Triglyceride levels of 600mg/dL or higher may positively bias chloride results by approximately 2.1 mmol Performed By: #### A CBC, LIPA2, CMPF #### Testing performed at [address] [address] CO2 [Moles/Vol] 22 mmol/L Normal 22-30 [facility] Comment on above: Performed By: #### A CBC, LIPA2, CMPF #### Testing performed at [address] [address] Creatinine [Mass/Vol] 0.80 mg/dL Normal 0.70-1.20 [facility] Comment on above: Performed By: #### A CBC, LIPA2, CMPF #### Testing performed at [address] [address] EST. GFR, 106 ml/min/1.73sq.m [facility] Comment on above: Performed By: #### A CBC, LIPA2, CMPF #### Testing performed at [address] [address] EST. GFR,Non 88 ml/min/1.73sq.m [facility] Comment on above: Performed By: #### A CBC, LIPA2, CMPF #### Testing performed at [address] [address] GFR Information Average GFR for 30-39 years old = 107. Normal [facility] Comment on above: Result Comment: Director Foundation alejandra Kidney disease, GFR = <60. Kidney failure, GFR = <15. The GFR estimate is not adjusted for extreme body surface area or acute process, nor has it been validated for women or ethnic groups other than and . Performed By: #### A CBC, LIPA2, CMPF #### Testing performed at [address] [address] Glucose [Mass/Vol] 119 mg/dL High 70-100 [facility] Comment on above: Result Comment: NORMAL <100 mg/dL PREDIABETES 101-126 mg/dL DIABETES 126 mg/dL or higher Performed By: #### A CBC, LIPA2, CMPF #### Testing performed at [address] [address] Potassium [Moles/Vol] 4.2 mmol/L Normal 3.5-5.1 [facility] Comment on above: Performed By: #### A CBC, LIPA2, CMPF #### Testing performed at [address] [address] Protein [Mass/Vol] 7.3 g/dL Normal 6.3-8.2 [facility] Comment on above: Performed By: #### A CBC, LIPA2, CMPF #### Testing performed at [address] [address] Sodium [Moles/Vol] 138 mmol/L Normal 137-145 [facility] Comment on above: Performed By: #### A CBC, LIPA2, CMPF #### Testing performed at [facility] [address] [place] [address] Urea nitrogen [Mass/Vol] 8 mg/dL Normal 7-20 [facility] Comment on above: Performed By: #### A CBC, LIPA2, CMPF #### Testing performed at [facility] [address] [place] [address] CNPNon 11-02-2022 CNPN Normal [facility] METABOLIC PANE Nestor 11-02-2022 Albumin [Mass/Vol] 4.4 G/dl 3.5 - 5.0 G/dl [facility] Albumin/Globulin [Mass ratio] 1.5 {ratio} RATIO [facility] ALP [Catalytic activity/Vol] 87 U/L [facility] ALT [Catalytic activity/Vol] 22 U/L NINF [facility] AST [Catalytic activity/Vol] 34 U/L [facility] Bilirubin [Mass/Vol] 0.4 mg/dL [facility] Calcium [Mass/Vol] 9.0 mg/dL [facility] Chloride [Moles/Vol] 106 mmol/L [facility] Comment on above: Please note: Triglyc eride levels of 600mg/dL or higher may positively bias chloride results by approximately 2.1 mmol CO2 [Moles/Vol] 22 mmol/L [facility] Creatinine [Mass/Vol] 0.80 mg/dL [facility] GFR COMMENT Average GFR for 30-39 years old = 107. [facility] Comment on above: Chronic Kidney disea se, GFR = <60. Kidney failure, GFR = <15. The GFR estimate is not adjusted for extreme body surface area or acute process, nor has it been validated for women or ethnic groups other than and . GFR/1.73 sq M.predicted among blacks MDRD (S/P/Bld) [Vol rate/Area] 106 mL/min/{1.73_m2} ml/min/1.73sq.m [facility] GFR/1.73 sq M.predicted among non-blacks MDRD (S/P/Bld) [Vol rate/Area] 88 mL/min/{1.73_m2} ml/min/1.73sq.m [facility] Glucose post fast [Mass/Vol] 119 mg/dL High [facility] Comment on above: NORMAL <100 mg/dL PREDIABETES 101-126 mg/dL DIABETES 126 mg/dL or higher Interpretation and review of laboratory results Abnormal [facility] Potassium [Moles/Vol] 4.2 mmol/L [facility] Protein [Mass/Vol] 7.3 g/dL [facility] Sodium [Moles/Vol] 138 mmol/L [facility] Urea nitrogen [Mass/Vol] 8 mg/dL [facility] HCG ( test) Ql (U)o n 11-02-2022 [facility] HCG QUALITATIVE, URINEon HCG ( test) Ql (U) Negative NEGATIVE [facility] LACTATE, BLOODon 11-02-2022 Lactate [Moles/Vol] 1.3 mmol/L 0.7 - 2.0 mmol/L [facility] LACTATE,BLOODon 11-02-2022 Lactate [Moles/Vol] 1.3 mmol/L Normal 0.7-2.0 [facility] Comment on above: Performed By: #### L ACTAC #### Testing performed at [place] [id number] LIPASEon 11-02-2022 Lipase [Catalytic activity/Vol] 105 U/L 23 - 300 U/L [facility] LIPASE,SERUMon 11-02-2022 LIPASE,SERUM 105 U/L Normal 23-300 [facility] Comment on above: Performed By: #### A CBC, LIPA2, CMPF #### Testing performed at [place] [id number] No Panel Informationon 11-02 [facility] RAD - MISCon 11-02-2022 RAD - MISC [id number] [id number]:[id number] Normal [facility] URINALYSIS, MACROon 11-03-19 23 Bilirubin Ql (U) Negative [facility]GATIVE [facility] Clarity (U) CLEAR CLEAR [facility] Color (U) YELLOW YELLOW [facility] Glucose Test strip (U) [Mass/Vol] Negative NEGATIVE mg/dl [facility] Hemoglobin Ql (U) Negative NEGATIVE [facility] Interpretation and review of laboratory results Abnormal [facility] Ketones (U) [Mass/Vol] Negative NEGATIVE mg/dl [facility] Leukocyte esterase Test strip Ql (U) Negative NEGATIVE [facility] Nitrite Ql (U) Negative NEGATIVE [facility] pH (U) 8.5 [pH] High 5.0 - 7.0 [facility] [facility] Protein Ql (U) Negative NEGATIVE mg/dl [facility] Specific gravity (U) [Rel density] 1.020 1.010 - 1.025 [facility] Urobilinogen (U) [Mass/Vol] 1.0 mg/dL [facility] URINE HCG QUALon 11-02-2022 Beta HCG ( test) Ql (U) Negative Normal NEGATIVE [facility] Comment on above: Performed By: #### U HCGT, UMAC #### Testing performed at [address] [address] URINE MACROSCOPICon 11-03-19 23 Bilirubin Ql (U) Negative Normal NEGATIVE [facility] Comment on above: Performed By: #### U HCGT, UMAC #### Testing performed at [address] [address] Clarity (U) CLEAR Normal CLEAR [facility] Comment on above: Performed By: #### U HCGT, UMAC #### Testing performed at [address] [place] [address] Color (U) YELLOW Normal YELLOW [facility] Comment on above: Performed By: #### U HCGT, UMAC #### Testing performed at [address] [place] [address] Glucose Ql (U) Negative Normal NEGATIVE [facility] Comment on above: Performed By: #### U HCGT, UMAC #### Testing performed at [address] [address] pH (U) 8.5 [pH] High 5.0-7.0 [facility] Comment on above: Performed By: #### U HCGT, UMAC #### Testing performed at [address] [address] URINE HEMOGLOBIN Negative Normal NEGATIVE [facility] Comment on above: Performed By: #### U HCGT, UMAC #### Testing performed at [address] [place] [address] URINE KETONE Negative Normal NEGATIVE [facility] Comment on above: Performed By: #### U HCGT, UMAC #### Testing performed at [address] [address] URINE LEUKOTEST Negative Normal NEGATIVE [facility] Comment on above: Performed By: #### U HCGT, UMAC #### Testing performed at [address] [address] URINE NITRATES Negative Normal NEGATIVE [facility] Comment on above: Performed By: #### U HCGT, UMAC #### Testing performed at [address] [address] URINE SPEC GRAVITY 1.020 Normal 1.010-1.025 [facility] Comment on above: Performed By: #### U HCGT, UMAC #### Testing performed at [address] [address] URINE TOTAL PROTEIN Negative Normal NEGATIVE [facility] Comment on above: Performed By: #### U HCGT, UMAC #### Testing performed at [address] [address] Urobilinogen Qn (U) 1.0 {Munir'U}/dL Normal 0.2-1.0 [facility] Comment on above: Performed By: #### U HCGT, UMAC #### Testing performed at [address] [address] CBC with Auto Differentialon 10-31-2022 Basophils (Bld) [#/Vol] [facility] Basophils/100 WBC (Bld) 0 % 0 - 2 % [facility] Eosinophils (Bld) [#/Vol] 0.03 10*3/uL [facility] Eosinophils/100 WBC (Bld) 0 % Low 1 - 4 % [facility] Erythrocyte distribution width (RBC) [Ratio] 12.8 % 11.8 - 14.4 % [facility] Hematocrit (Bld) [Volume fraction] 38.9 % 36.3 - 47.1 % [facility] Hemoglobin (Bld) [Mass/Vol] 13.3 g/dL 11.9 - 15.1 g/dL [facility] Immature granulocytes (Bld) [#/Vol] [facility] Immature granulocytes/100 WBC (Bld) 0 % 0 [facility] Interpretation and review of laboratory results Abnormal [facility] Lymphocytes/100 WBC (Bld) 19 % Low 24 - 43 % [facility] Lymphocytes/100 WBC (Bld) 1.46 % [facility] MCH (RBC) [Entitic mass] 30.6 pg 25.2 - 33.5 pg [facility] MCHC (RBC) [Mass/Vol] 34.2 g/dL 28.4 - 34.8 g/dL [facility] MCV (RBC) [Entitic vol] 89.4 fL 82.6 - 102.9 fL [facility] Monocytes/100 WBC (Bld) 5 % 3 - 12 % [facility] Monocytes/100 WBC (Bld) 0.41 % [facility] Neutrophils/100 WBC (Bld) 76 % High 36 - 65 % [facility] Nucleated RBC/100 WBC (Bld) [Ratio] 0.0 % 0.0 per 100 WBC [facility] Platelet mean volume (Bld) [Entitic vol] 12.0 fL 8.1 - 13.5 fL [facility] Platelets (Bld) [#/Vol] 246 10*3/uL [facility] RBC (Bld) [#/Vol] 4.35 10*6/uL 3.95 - 5.11 m/uL [facility] Segmented neutrophils/100 WBC (Bld) 5.66 % [facility] WBC other (Bld) [#/Vol] 7.6 [facility] CBC with Diffon 10-31-2022 Abs. Basophil <0.03 Normal 0.00-0.20 [facility] Comment on above: Performed By: #### L IP, CP, CDP #### [facility] [address] [place] [address] Warehouse Person: Baldomero Espinoza MD Abs.Imm.Granulocyte <0.03 Normal 0.00-0.30 [facility] Comment on above: Performed By: #### L IP, CP, CDP #### [address] [place], [place] [address] Warehouse Person: Baldomero Espinoza MD Abs.Neutrophil (Seg) 5.66 k/uL Normal 1.50-8.10 [facility] Comment on above: Performed By: #### L IP, CP, CDP #### [address] [place] [id number] Warehouse Person: Baldomero Espinoza MD Basophils/100 WBC (Bld) 0 % Normal 0-2 [facility] Comment on above: Performed By: #### L IP, CP, CDP #### [address] [place], [facility] Warehouse Person: Baldomero Espinoza MD Eosinophils (Bld) [#/Vol] 0.03 10*3/uL Normal 0.00-0.44 [facility] Comment on above: Performed By: #### L IP, CP, CDP #### [address] [place], [facility] Warehouse Person: Baldomero Espinoza MD Eosinophils/100 WBC (Bld) 0 % Low 1-4 [facility] Comment on above: Performed By: #### L IP, CP, CDP #### [address] [place], [facility] Warehouse Person: Baldomero Espinoza MD Erythrocyte distribution width (RBC) [Ratio] 12.8 % Normal 11.8-14.4 [facility] Comment on above: Performed By: #### L IP, CP, CDP #### [address] [place], [facility] Warehouse Person: Baldomero Espinoza MD Hematocrit (Bld) [Volume fraction] 38.9 % Normal 36.3-47.1 [facility] Comment on above: Performed By: #### L JUDITH BROWN, CDP #### [facility] [address] [place], [place] [phone] Warehouse Person: Baldomero Espinoza MD Hemoglobin (Bld) [Mass/Vol] 13.3 g/dL Normal 11.9-15.1 [facility] Comment on above: Performed By: #### L JUDITH BROWN, CDP #### [facility] [address] [place], [place] [phone] Warehouse Person: Baldomero Espinoza MD Immature granulocytes/100 WBC (Bld) 0 % Normal 0 [facility] Comment on above: Performed By: #### L JUDITH BROWN, CDP #### [facility] [address] [place], [place] [phone] Warehouse Person: Baldomero Espinoza MD Lymphocytes (Bld) [#/Vol] 1.46 10*3/uL Normal 1.10-3.70 [facility] Comment on above: Performed By: #### L JUDITH BROWN, CDP #### [address] [place], [place] [phone] Warehouse Person: Baldomero Espinoza MD Lymphocytes/100 WBC (Bld) 19 % Low 24-43 [facility] Comment on above: Performed By: #### L JUDITH BROWN, CDP #### [facility] [address] [place], [place] [phone] Warehouse Person: Baldomero Espinoza MD MCH (RBC) [Entitic mass] 30.6 pg Normal 25.2-33.5 [facility] Comment on above: Performed By: #### L JUDITH BROWN, CDP #### [facility] [address] [place], [place] [phone] Warehouse Person: Baldomero Espinoza MD MCHC (RBC) [Mass/Vol] 34.2 g/dL Normal 28.4-34.8 [facility] Comment on above: Performed By: #### L IP, CP, CDP #### [address] [place], [place] [address] Warehouse Person: Baldomero Espinoza MD MCV (RBC) [Entitic vol] 89.4 fL Normal 82.6-102.9 [facility] Comment on above: Performed By: #### L IP, CP, CDP #### [address] [place], [place] [address] Warehouse Person: Baldomero Espinoza MD Monocytes (Bld) [#/Vol] 0.41 10*3/uL Normal 0.10-1.20 [facility] Comment on above: Performed By: #### L IP, CP, CDP #### [address] [place], [place] [address] Warehouse Person: Baldomero Espinoza MD Monocytes/100 WBC (Bld) 5 % Normal 3-12 [facility] Comment on above: Performed By: #### L IP, CP, CDP #### [address] [place], [place] [address] Warehouse Person: Baldomero Espinoza MD Neutrophil (Seg) 76 % High 36-65 [facility] Comment on above: Performed By: #### L IP, CP, CDP #### [address] [place], [facility] Warehouse Person: Baldomero Espinoza MD NRBC Automated 0.0 per 100 WBC Normal 0.0 [facility] Comment on above: Performed By: #### L IP, CP, CDP #### [address] [place], [facility] Warehouse Person: Baldomero Espinoza MD Platelet mean volume (Bld) [Entitic vol] 12.0 fL Normal 8.1-13.5 [facility] Comment on above: Performed By: #### L IP, CP, CDP #### [facility] [address] [place], [place] [phone] Warehouse Person: Baldomero Espinoza MD Platelets (Bld) [#/Vol] 246 10*3/uL Normal 138-453 [facility] Comment on above: Performed By: #### L IP, CP, CDP #### [facility] [address] [place], [place] [phone] Warehouse Person: Baldomero Espinoza MD RBC (Bld) [#/Vol] 4.35 10*6/uL Normal 3.95-5.11 [facility] Comment on above: Performed By: #### L KEVIN CP, CDP #### [facility] [address] [place], [place] [phone] Warehouse Person: Baldomero Espinoza MD WBC (Bld) [#/Vol] 7.6 10*3/uL Normal 3.5-11.3 [facility] Comment on above: Performed By: #### L KEVIN CP, CDP #### [facility] [address] [place], [place] [phone] Warehouse Person: Baldomero Espinoza MD [facility] 10-31-2022 Albumin [Mass/Vol] 4.5 g/dL 3.5 - 5.2 g/dL [facility] Albumin/Globulin [Mass ratio] 1.7 {ratio} 1.0 - 2.5 [facility] ALP [Catalytic activity/Vol] 76 U/L 35 - 104 U/L [facility] ALT [Catalytic activity/Vol] 14 U/L 5 - 33 U/L [facility] Anion gap [Moles/Vol] 12 mmol/L 9 - 17 mmol/L [facility] AST [Catalytic activity/Vol] 24 U/L NINF - 32 U/L [facility] Bilirubin [Mass/Vol] 0.3 mg/dL 0.3 - 1.2 mg/dL [facility] Calcium [Mass/Vol] 9.1 mg/dL 8.6 - 10.4 mg/dL [facility] Chloride [Moles/Vol] 106 mmol/L 98 - 107 mmol/L [facility] CO2 [Moles/Vol] 18 mmol/L Low 20 - 31 mmol/L [facility] Creatinine [Mass/Vol] 0.7 mg/dL 0.5 - 0.9 mg/dL [facility] GFR/1.73 sq M.predicted MDRD (S/P/Bld) [Vol rate/Area] - PINF [facility] Comment on above: These results are not [...] [Mass/Vol] 87 mg/dL 70 - 99 mg/dL [facility] Interpretation and review of laboratory results Abnormal [facility] Potassium [Moles/Vol] 3.8 mmol/L 3.7 - 5.3 mmol/L [facility] Protein [Mass/Vol] 7.2 g/dL 6.4 - 8.3 g/dL [facility] Sodium [Moles/Vol] 136 mmol/L 135 - 144 mmol/L [facility] Urea nitrogen [Mass/Vol] 7 mg/dL 6 - 20 mg/dL [facility] Urea nitrogen/Creatinine [Mass ratio] 10 mg/mg 9 - 20 [facility] Comp Metabolic Profon 2022 Albumin [Mass/Vol] 4.5 g/dL Normal 3.5-5.2 [facility] Comment on above: Performed By: #### L JUDITH BROWN, CDP #### [facility] [address] [place] [address] Warehouse Person: Baldomero Espinoza MD Albumin/Glob Ratio 1.7 Normal 1.0-2.5 [facility] Comment on above: Performed By: #### L IP, CP, CDP #### [facility] [address] [place], [place] [phone] Warehouse Person: Baldomero Espinoza MD Alkaline Phos 76 U/L Normal 35-104 [facility] Comment on above: Performed By: #### L IP, CP, CDP #### [facility] [address] [place], [place] [phone] Warehouse Person: Baldomero Espinoza MD ALT [Catalytic activity/Vol] 14 U/L Normal 5-33 [facility] Comment on above: Performed By: #### L IP, CP, CDP #### [facility] [address] [place], [place] [phone] Warehouse Person: Baldomero Espinoza MD Anion gap [Moles/Vol] 12 mmol/L Normal 9-17 [facility] Comment on above: Performed By: #### L IP, CP, CDP #### [facility] [address] [place], [place] [phone] Warehouse Person: Baldomero Espinoza MD AST [Catalytic activity/Vol] 24 U/L Normal <32 [facility] Comment on above: Performed By: #### L IP, CP, CDP #### [facility] [address] [place], [place] [phone] Warehouse Person: Baldomero Espinoza MD Bilirubin [Mass/Vol] 0.3 mg/dL Normal 0.3-1.2 [facility] Comment on above: Performed By: #### L IP, CP, CDP #### [facility] [address] [place], [place] 1632983 Warehouse Person: Baldomero Espinoza MD BUN/CRE Ratio 10 Normal 9-20 [facility] Comment on above: Performed By: #### L IP, CP, CDP #### [facility] [address] [place], [place] [address]3 Warehouse Person: Baldomero Espinoza MD Calcium [Mass/Vol] 9.1 mg/dL Normal 8.6-10.4 [facility] Comment on above: Performed By: #### L IP, CP, CDP #### [facility] [address] [place] [address] Warehouse Person: Baldomero Espinoza MD Chloride [Moles/Vol] 106 mmol/L Normal 98-107 [facility] Comment on above: Performed By: #### L IP, CP, CDP #### [facility] [address] [place], [place] [phone] Warehouse Person: Baldomero Espinoza MD CO2 [Moles/Vol] 18 mmol/L Low 20-31 [facility] Comment on above: Performed By: #### L IP, CP, CDP #### [facility] [address] [place], [place] [phone] Warehouse Person: Baldomero Espinoza MD Creatinine [Mass/Vol] 0.7 mg/dL Normal 0.5-0.9 [facility] Comment on above: Performed By: #### L IP, CP, CDP #### [facility] [address] [place] [address] Warehouse Person: Baldomero Espinoza MD GFR/1.73 sq M.predicted among non-blacks MDRD (S/P/Bld) [Vol rate/Area] mL/min/{1.73_m2} Normal >60 [facility] Comment on above: Result Comment: These [...] By: #### L IP, CP, CDP #### [facility] [address] [place] [address] Warehouse Person: Baldomero Espinoza MD Glucose [Mass/Vol] 87 mg/dL Normal 70-99 [facility] Comment on above: Performed By: #### L IP, CP, CDP #### [facility] [address] [place], [place] [phone] Warehouse Person: Baldomero Espinoza MD Potassium [Moles/Vol] 3.8 mmol/L Normal 3.7-5.3 [facility] Comment on above: Performed By: #### L IP, CP, CDP #### [facility] [address] [place], [place] [phone] Warehouse Person: Baldomero Espinoza MD Protein [Mass/Vol] 7.2 g/dL Normal 6.4-8.3 [facility] Comment on above: Performed By: #### L IP, CP, CDP #### [address] [place], [place] [phone] Warehouse Person: Baldomero sEpinoza MD Sodium [Moles/Vol] 136 mmol/L Normal 135-144 [facility] Comment on above: Performed By: #### L IP, CP, CDP #### [address] [place], [place] [phone] Warehouse Person: Baldomero Espinoza MD Urea nitrogen [Mass/Vol] 7 mg/dL Normal 6-20 [facility] Comment on above: Performed By: #### L IP, CP, CDP #### [facility] [address] [place] [address] Dr[place], [place] [phone] Warehouse Person: Baldomero Espinoza MD Lipaseon 10-31-2022 Lipase [Catalytic activity/Vol] 43 U/L Normal 13-60 [facility] Comment on above: Performed By: #### L IP, CP, CDP #### [facility] [address] [place] [address] Warehouse Person: Baldomero Espinoza MD Lipase [Catalytic activity/Vol] 43 U/L 13 - 60 U/L [facility] Microscopic Urinalysison Bacteria LM Ql (Urine sed) 1+ Abnormal None [facility] Epithelial cells LM.HPF (Urine sed) [#/Area] 2 TO 5 [facility] Interpretation and review of laboratory results Abnormal [facility] RBC LM.HPF (Urine sed) [#/Area] None [facility] WBC LM.HPF (Urine sed) [#/Area] None [facility] No Panel Informationon 10-31 [facility] UA w/Reflex Cultureon 2022 Bilirubin, SemiQt,Ur Negative Normal NEG [facility] Comment on above: Performed By: #### U LAURENO, UAX ####[address] , [place] [id number] Lab Director: Baldomero Espinoza MD Blood, Urine Negative Normal NEG [facility] Comment on above: Performed By: #### U LAURENO, UAX ####[address] [place] [address] Lab Director: Baldomero Espinoza MD Clarity (U) Clear Normal CLEAR [facility] Comment on above: Performed By: #### U LAURENO, UAX ####[address] , [place] [phone] Lab Director: Baldomero Espinoza MD Color (U) Yellow Normal YEL [facility] Comment on above: Performed By: #### U LAURENO, UAX ####[address] [place] [address] Lab Director: Baldomero Espinoza MD Glucose Ql (U) Negative Normal NEG [facility] Comment on above: Performed By: #### U MICAO, UAX ####[address] , [place] [phone] Lab Director: Baldomero Espinoza MD Ketones Ql (U) Negative Normal NEG [facility] Comment on above: Performed By: #### U LAURENO, UAX ####[address] , [place] [phone] Lab Director: Baldomero Espinoza MD Leukocyte esterase Test strip Ql (U) Negative Normal NEG [facility] Comment on above: Performed By: #### U MICAO, UAX ####[address] , [place] [address] lab Director: Baldomero Espinoza MD Nitrite,Ur Negative Normal NEG [facility] Comment on above: Performed By: #### U MICAO, UAX ####[address] [place] [address] lab Director: Baldomero Espinoza MD PH,Ur 7.0 Normal 5.0-9.0 [facility] Comment on above: Performed By: #### U MICAO, UAX ####[address] [place] [address] [facility] Director: Baldomero Espinoza MD Protein Ql (U) Negative Normal NEG [facility] Comment on above: Performed By: #### U MICAO, UAX ####[address] [place] [address] lab Director: Baldomero Espinoza MD Spec. [place],Ur 1.015 Normal 1.010-1.020 [facility] Comment on above: Performed By: #### U MICAO, UAX ####[address] [place] [address] lab Director: Baldomero Espinoza MD Urobilinogen,Ur Normal Normal 0.0-1.0 [facility] Comment on above: Performed By: #### U MICAO, UAX ####[address] [place] [address] lab Director: Baldomero Espinoza MD Urinalysis with Reflex to Cu ltureon 10-31-2022 Bilirubin Ql (U) Negative NEGATIVE [facility] Clarity (U) Clear Clear [facility] Color (U) Yellow Yellow [facility] Glucose Test strip (U) [Mass/Vol] Negative NEGATIVE mg/dL [facility] Hemoglobin Auto test strip Ql (U) Negative NEGATIVE [facility] Ketones (U) [Mass/Vol] Negative NEGATIVE mg/dL [facility] Leukocyte esterase Test strip Ql (U) Negative NEGATIVE [facility] Nitrite Ql (U) Negative NEGATIVE [facility] pH (U) 7.0 [pH] 5.0 - 9.0 [facility] Protein (U) [Mass/Vol] Negative NEGATIVE mg/dL [facility] Specific gravity (U) [Rel density] 1.015 1.010 - 1.020 [facility] Urobilinogen Qn (U) Normal 0.0 - 1.0 EU/dL [facility] Urinalysis,Microon 3 Bacteria 1+ Abnormal NONE [facility] Comment on above: Performed By: #### U MICAO, UAX ####[address] [place] [address] [facility] Director: Baldomero Espinoza MD Epithelial cells LM Ql (Urine sed) 2 TO 5 Normal 0-25 [facility] Comment on above: Performed By: #### U MICAO, UAX ####[facility] , [facility] Director: Baldomero Espinoza MD Urine RBC's None Normal 0-2 [facility] Comment on above: Performed By: #### U MICAO, UAX ####[address] [place] [address] lab Director: Baldomero Espinoza MD Urine WBC's None Normal 0-5 [facility] Comment on above: Performed By: #### U MICAO, UAX ####[facility] [place] [address] Lab Director: Baldomero Espinoza MD XR LUMBAR SPINE [...] E Regalado MD 10/31/22 Final result Normal [facility] 1. No acute vertebral body height loss or malalignment within the lumbar spine. 2. Mild anterior wedging of lower thoracic vertebral bodies, similar to the prior CT of 07/27/2021. 3. Prior cholecystectomy. Moderate stool burden. [facility] RIS CONSOLIDATED EXAMINATION: 5 XRAY VIEWS OF THE [...] sacral arcuate lines appear intact. Pelvic phleboliths. [facility] RIS CONSOLIDATED Luis E Regalado MD - 10/31/2022 [...] 07/27/2021. 3. Prior cholecystectomy. Moderate stool burden. [facility] Radiology Study observation (narrative) [facility] XR LUMBAR SPINE (MIN 4 VIEWS )Ordered By: Luis E Regalado on 10-31-2022 [facility] Work Phone: Transfer Inon 10-30-2022 Transfer In [id number] 6#1.00CD:127 [facility] Discharge Instructionson Discharge Instructions [id number] 183#1.00CD:127 [facility] Comment on above: Other Comment: wrong folder Population Healthon 10-30-19 23 Population Health [facility] Auth for Release of Medical Recordson 10-28-2022 Auth for Release of Medical Records [id number] 7#1.00CD:127 [facility] CBC panel Auto (Bld)on 10-28 Erythrocyte distribution width (RBC) [Ratio] 13.2 % Normal 11.5-15.0 [facility] Comment on above: Order Comment: Speci men Type: BLOOD SPECIMENOrdering Facility: [facility] Address: [address] [place] [address] Performed By: #### 5 8410-2 ####[facility] [id number] [address] [place] Hematocrit (Bld) [Volume fraction] 33.4 % Low 36.0-46.0 [facility] Comment on above: Order Comment: Speci men Type: BLOOD SPECIMENOrdering Facility: [facility] Address: [address] [address] Performed By: #### 5 8410-2 ####[facility] [id number] [place] [address] [place] Hemoglobin (Bld) [Mass/Vol] 10.9 g/dL Low 11.5-15.5 [facility] Comment on above: Order Comment: Speci men Type: BLOOD SPECIMENOrdering Facility: [facility] Address: [address] [address] Performed By: #### 5 8410-2 ####[facility] [id number] [address] [place] MCH (RBC) [Entitic mass] 30.4 pg Normal 26.0-34.0 [facility] Comment on above: Order Comment: Speci men Type: BLOOD SPECIMENOrdering Facility: [facility] Address: [address] [address] Performed By: #### 5 8410-2 ####[facility] [id number] [address] [place] MCHC (RBC) [Mass/Vol] 32.6 g/dL Normal 30.5-36.0 [facility] Comment on above: Order Comment: Speci men Type: BLOOD SPECIMENOrdering Facility: [facility] Address: [address] [address] Performed By: #### 5 8410-2 ####[facility] [id number] [place] MCV (RBC) [Entitic vol] 93.3 fL Normal 80.0-100.0 [facility] Comment on above: Order Comment: Speci men Type: BLOOD SPECIMENOrdering Facility: [facility] Address: [address] [address] Performed By: #### 5 8410-2 ####[facility] [id number] [place] [address] [place] Nucleated RBC (Bld) [#/Vol] 10*3/uL Normal <0.01 [facility] Comment on above: Order Comment: Speci men Type: BLOOD SPECIMENOrdering Facility: [facility] Address: [address] [address] Performed By: #### 5 8410-2 ####[facility] [id number] [place] [address] [place] Platelet mean volume (Bld) [Entitic vol] 11.7 fL Normal 9.0-12.7 [facility] Comment on above: Order Comment: Speci men Type: BLOOD SPECIMENOrdering Facility: [facility] Address: [address] [address] Performed By: #### 5 8410-2 ####[facility] [id number] [place] [place] [address] [place] Platelets (Bld) [#/Vol] 174 10*3/uL Normal 150-400 [facility] Comment on above: Order Comment: Speci men Type: BLOOD SPECIMENOrdering Facility: [facility] Address: [address] [address] Performed By: #### 5 8410-2 ####[facility]ORATORYIA [id number] [place] [address] [place] RBC (Bld) [#/Vol] 3.58 10*6/uL Low 3.90-5.20 [facility] Comment on above: Order Comment: Speci men Type: BLOOD SPECIMENOrdering Facility: [facility] Address: [address] Performed By: #### 5 8410-2 ####[facility]ITALIA [id number] [place] [address] [place] WBC (Bld) [#/Vol] 4.62 10*3/uL Normal 3.70-11.00 [facility] Comment on above: Order Comment: Speci men Type: BLOOD SPECIMENOrdering Facility: [facility] Address: [address] [address] Performed By: #### 5 8410-2 ####[facility] [id number] [place] [id number] [place] CNDSon 10-28-2022 CNDS Normal [facility] Comprehensive metabolic 2000 panelon 10-28-2022 Albumin [Mass/Vol] 3.2 g/dL Low 3.9-4.9 [facility] Comment on above: Order Comment: Speci men Type: BLOOD SPECIMENOrdering Facility: [facility] Address: [address] Performed By: #### 2 777-1, , ####[facility] [id number] [place] [id number] [place] ALP [Catalytic activity/Vol] 54 U/L Normal 34-123 [facility] Comment on above: Order Comment: Speci men Type: BLOOD SPECIMENOrdering Facility: [facility] Address: [address] Performed By: #### 2 777-1, , 71577-8 ####[facility] [id number] [place] [id number] [place] ALT [Catalytic activity/Vol] 11 U/L Normal 7-38 [facility] Comment on above: Order Comment: Speci men Type: BLOOD SPECIMENOrdering Facility: [facility] Address: [address] [address] Performed By: #### 2 777-1, , ####[facility] LABORATORYCLIA [id number] [facility] [place] [address] [place] Anion gap [Moles/Vol] 9 mmol/L Normal 9-18 [facility] Comment on above: Order Comment: Speci men Type: BLOOD SPECIMENOrdering Facility: [facility] Address: [address] [place] [address] Performed By: #### 2 777-1, , ####[facility]ITALCLIA [id number] [place] [address] [place] AST [Catalytic activity/Vol] 23 U/L Normal 13-35 [facility] Comment on above: Order Comment: Speci men Type: BLOOD SPECIMENOrdering Facility: [facility] Address: [address] [place] [address] Performed By: #### 2 777-1, , ####[facility] [id number] [place] [address] [place] Bilirubin [Mass/Vol] 0.3 mg/dL Normal 0.2-1.3 [facility] Comment on above: Order Comment: Speci men Type: BLOOD SPECIMENOrdering Facility: [facility] Address: [address] [place] [address] Performed By: #### 2 777-1, , ####[facility] [id number] [facility] [place] [address] [place] Calcium [Mass/Vol] 8.3 mg/dL Low 8.5-10.2 [facility] Comment on above: Order Comment: Speci men Type: BLOOD SPECIMENOrdering Facility: [facility] Address: [address] [place] [address] Performed By: #### 2 777-1, , ####[facility]IA [id number] [facility] [place] [address] [place] Chloride [Moles/Vol] 108 mmol/L High 97-105 [facility] Comment on above: Order Comment: Speci men Type: BLOOD SPECIMENOrdering Facility: [facility] Address: [address] [place] [address] Performed By: #### 2 777-1, , ####[facility]ORATORYCLIA [id number] [place] [address] [place] CO2 [Moles/Vol] 21 mmol/L Low 22-30 [facility] Comment on above: Order Comment: Speci men Type: BLOOD SPECIMENOrdering Facility: [facility] Address: [address] [id number] Performed By: #### 2 777-1, , ####[facility] LABORATORYCLIA [id number] [place] [address] [place] Creatinine [Mass/Vol] 0.76 mg/dL Normal 0.58-0.96 [facility] Comment on above: Order Comment: Speci men Type: BLOOD SPECIMENOrdering Facility: [facility] Address: [place] [address] Performed By: #### 2 777-1, , ####[facility]IA [id number] [place] [address] [place] Creatinine and Glomerular filtration rate.predicted panel (S/P/Bld) 106 mL/min/1.73m??? Normal >=60 [facility] l Comment on above: Order Comment: Speci men Type: BLOOD SPECIMENOrdering Facility: [facility] Address: [address] [place], [place] [address] Result Comment: Jessica mated Glomerular Filtration Rate (eGFR) is calculated [...] reflect actual GFR. Performed By: #### 2 777-1, , ####[facility]IA [id number] [place] [address] [place] Glucose [Mass/Vol] 84 mg/dL Normal 74-99 [facility] Comment on above: Order Comment: Speci men Type: BLOOD SPECIMENOrdering Facility: [facility] Address: [address] [place], [place] [address] Result Comment: The [place] [employer] (ADA) provides guidance for cutoff [...] Standards of Medical Care in Diabetes 2016, [place] [employer]. Diabetes Care. 2016.39(Suppl 1). Performed By: #### 2 777-1, , ####[facility]IA [id number] [place] [address] [place] Potassium [Moles/Vol] 4.1 mmol/L Normal 3.7-5.1 [facility] Comment on above: Order Comment: Speci men Type: BLOOD SPECIMENOrdering Facility: [facility] Address: [address] [place] [address] Performed By: #### 2 777-1, , ####[facility] [id number] [facility] [place] [address] [place] Protein [Mass/Vol] 5.2 g/dL Low 6.3-8.0 [facility] Comment on above: Order Comment: Speci men Type: BLOOD SPECIMENOrdering Facility: [facility] Address: [address] [place] [address] Performed By: #### 2 777-1, , ####[facility]IA [id number] [place] [address] [place] [facility] Sodium [Moles/Vol] 138 mmol/L Normal 136-144 [facility] Comment on above: Order Comment: Speci men Type: BLOOD SPECIMENOrdering Facility: [facility] Address: [address] [facility] [address] Performed By: #### 2 777-1, , ####[facility] [id number] [place] [id number] [place] Urea nitrogen [Mass/Vol] 7 mg/dL Normal 7-21 [facility] Comment on above: Order Comment: Speci men Type: BLOOD SPECIMENOrdering Facility: [facility] Address: [address] Performed By: #### 2 777-1, , ####[facility] [id number] [place] [id number] [place] Formson 10-28-2022 Forms [id number] E6#1.00CD:127 Normal [facility] Magnesium [facility]28 Magnesium [Mass/Vol] 1.9 mg/dL Normal 1.7-2.3 [facility] Comment on above: Order Comment: Speci men Type: BLOOD SPECIMENOrdering Facility: [facility] Address: [address] [place] [address] Performed By: #### 2 777-1, , ####[facility]IA [id number] [place] [address] [place] Phosphate SerPl-mCncon 10-28 Phosphate [Mass/Vol] 3.2 mg/dL Normal 2.7-4.8 [facility] Comment on above: Order Comment: Speci men Type: BLOOD SPECIMENOrdering Facility: [facility] Address: [address] [place] [address] Performed By: #### 2 777-1, 02051-5, 20243-1 ####[facility]ORYIA [id number] [place] [address] [place] ANES POSTPROC EVALon 023 ANES POSTPROC EVAL Normal [facility] ANES PRE-OPon 10-27-2022 ANES PRE-OP Normal [facility] CBC panel Auto (Bld)on 10-27 Erythrocyte distribution width (RBC) [Ratio] 13.3 % Normal 11.5-15.0 [facility] Comment on above: Order Comment: Speci men Type: BLOOD SPECIMENOrdering Facility: [facility] Address: [address] [place] [address] Performed By: #### 5 8410-2 ####[facility] [id number] [place] [address] [place] Hematocrit (Bld) [Volume fraction] 33.6 % Low 36.0-46.0 [facility] Comment on above: Order Comment: Speci men Type: BLOOD SPECIMENOrdering Facility: [facility] Address: [address] [place] [address] Performed By: #### 5 8410-2 ####[facility]ORYIA [id number] [place] [address] [place] Hemoglobin (Bld) [Mass/Vol] 10.9 g/dL Low 11.5-15.5 [facility] Comment on above: Order Comment: Speci men Type: BLOOD SPECIMENOrdering Facility: [facility] Address: [address] [place] [address] Performed By: #### 5 8410-2 ####[facility]ORYIA [id number] [place] [address] [place] MCH (RBC) [Entitic mass] 30.5 pg Normal 26.0-34.0 [facility] Comment on above: Order Comment: Speci men Type: BLOOD SPECIMENOrdering Facility: [facility] Address: [address] [address] Performed By: #### 5 8410-2 ####[facility]ORATORYCLIA [id number] [address] [place] MCHC (RBC) [Mass/Vol] 32.4 g/dL Normal 30.5-36.0 [facility] Comment on above: Order Comment: Speci men Type: BLOOD SPECIMENOrdering Facility: [facility] Address: [address] [address] Performed By: #### 5 8410-2 ####[facility]PITALCLIA [id number] [place] [address] [place] MCV (RBC) [Entitic vol] 94.1 fL Normal 80.0-100.0 [facility] Comment on above: Order Comment: Speci men Type: BLOOD SPECIMENOrdering Facility: [facility] Address: [address] [address] Performed By: #### 5 8410-2 ####[facility]ORATORYCLIA [id number] [address] [place] Nucleated RBC (Bld) [#/Vol] 10*3/uL Normal <0.01 [facility] Comment on above: Order Comment: Speci men Type: BLOOD SPECIMENOrdering Facility: [facility] Address: [address] [address] Performed By: #### 5 8410-2 ####[facility]ORATORYCLIA [id number] [address] [place] Platelet mean volume (Bld) [Entitic vol] 11.7 fL Normal 9.0-12.7 [facility] Comment on above: Order Comment: Speci men Type: BLOOD SPECIMENOrdering Facility: [facility] Address: [address] [address] Performed By: #### 5 8410-2 ####[facility]ORATORYCLIA [id number] [facility] [place] [address] [place] Platelets (Bld) [#/Vol] 160 10*3/uL Normal 150-400 [facility] Comment on above: Order Comment: Speci men Type: BLOOD SPECIMENOrdering Facility: [facility] Address: [address] [place] [address] Performed By: #### 5 8410-2 ####[facility] [id number] [place] [id number] [place] RBC (Bld) [#/Vol] 3.57 10*6/uL Low 3.90-5.20 [facility] Comment on above: Order Comment: Speci men Type: BLOOD SPECIMENOrdering Facility: [facility] Address: [address] [place] [address] Performed By: #### 5 8410-2 ####[facility] [id number] [address] [place] WBC (Bld) [#/Vol] 3.53 10*3/uL Low 3.70-11.00 [facility] Comment on above: Order Comment: Speci men Type: BLOOD SPECIMENOrdering Facility: [facility] Address: [address] [place] [address] Performed By: #### 5 8410-2 ####[facility] [id number] [place] [id number] [place] CONSULT PROGon 10-27-2022 CONSULT PROG Normal [facility] CONSULT PROG Normal [facility] Comprehensive metabolic 2000 panelon 10-27-2022 Albumin [Mass/Vol] 3.3 g/dL Low 3.9-4.9 [facility] Comment on above: Order Comment: Speci men Type: BLOOD SPECIMENOrdering Facility: [facility] Address: [address] [place] [address] Performed By: #### 2 4323-8, 2777-1, 70638-9 ####[facility]ORATORYCLIA [id number] [place] [address] [place] ALP [Catalytic activity/Vol] 52 U/L Normal 34-123 [facility] Comment on above: Order Comment: Speci men Type: BLOOD SPECIMENOrdering Facility: [facility] Address: [address] [place] [address] Performed By: #### 2 4323-8, 2776-02, ####[facility]ORATORYCLIA [id number] [place] [address] [place] ALT [Catalytic activity/Vol] 14 U/L Normal 7-38 [facility] Comment on above: Order Comment: Speci men Type: BLOOD SPECIMENOrdering Facility: [facility] Address: [address] [place] [address] Performed By: #### 2 4323-8, 2776-02, ####[facility]ORATORYCLIA [id number] [place] [address] [place] Anion gap [Moles/Vol] 8 mmol/L Low 9-18 [facility] Comment on above: Order Comment: Speci men Type: BLOOD SPECIMENOrdering Facility: [facility] Address: [address] [place] [address] Performed By: #### 2 4323-8, 2776-02, ####[facility]ORATORYCLIA [id number] [place] [address] [place] AST [Catalytic activity/Vol] 28 U/L Normal 13-35 [facility] Comment on above: Order Comment: Speci men Type: BLOOD SPECIMENOrdering Facility: [facility] Address: [address] [place] [address] Performed By: #### 2 4323-8, 2776-02, ####[facility]ORATORYCLIA [id number] [place] [address] [place] Bilirubin [Mass/Vol] 0.2 mg/dL Normal 0.2-1.3 [facility] Comment on above: Order Comment: Speci men Type: BLOOD SPECIMENOrdering Facility: [facility] Address: [address] [place] [address] Performed By: #### 2 4323-8, 2776-02, ####[facility]IA [id number] [place] [address] [place] Calcium [Mass/Vol] 8.1 mg/dL Low 8.5-10.2 [facility] Comment on above: Order Comment: Speci men Type: BLOOD SPECIMENOrdering Facility: [facility] Address: [address] [place], [place] [address] Performed By: #### 2 4323-8, 2776-02, ####[facility]IA [id number] [place] [address] [place] Chloride [Moles/Vol] 110 mmol/L High 97-105 [facility] Comment on above: Order Comment: Speci men Type: BLOOD SPECIMENOrdering Facility: [facility] Address: [address] [place], [place] [address] Performed By: #### 2 4323-8, 2776-02, ####[facility]IA [id number] [place] [address] [place] CO2 [Moles/Vol] 22 mmol/L Normal 22-30 [facility] Comment on above: Order Comment: Speci men Type: BLOOD SPECIMENOrdering Facility: [facility] Address: [address] [place], [place] [address] Performed By: #### 2 4323-8, 2776-02, ####[facility]ORYIA [id number] [place] [address] [place] Creatinine [Mass/Vol] 0.70 mg/dL Normal 0.58-0.96 [facility] Comment on above: Order Comment: Speci men Type: BLOOD SPECIMENOrdering Facility: [facility] Address: [address] [place], [place] [address] Performed By: #### 2 4323-8, 2777-, ####[facility]ORATORYCLIA [id number] [place] [address] [place] Creatinine and Glomerular filtration rate.predicted panel (S/P/Bld) 117 mL/min/1.73m??? Normal >=60 [facility] Comment on above: Order Comment: Geraldo marrero Type: BLOOD SPECIMENOrdering Facility: [facility] Address: [address] [place] [address] Result Comment: Jessica mated Glomerular Filtration Rate (eGFR) is calculated [...] GFR. Performed By: #### 2 4323-8, 2777-, ####[facility]ORATORYCLIA [id number] [facility] [place] [address] [place] Glucose [Mass/Vol] 89 mg/dL Normal 74-99 [facility] Comment on above: Order Comment: Geraldo marrero Type: BLOOD SPECIMENOrdering Facility: [facility] Address: [address] [place] [address] Result Comment: The [place] Diabetes [employer] (ADA) provides guidance for cutoff [...] Standards of Medical Care in Diabetes 2016, [place] [employer]. Diabetes Care. 2016.39(Suppl 1). Performed By: #### 2 4323-8, 2777- ####[facility]IA [id number] [place] [address] [place] Potassium [Moles/Vol] 4.1 mmol/L Normal 3.7-5.1 [facility] Comment on above: Order Comment: Speci men Type: BLOOD SPECIMENOrdering Facility: [facility] Address: [address] [place] [address] Performed By: #### 2 4323-8, 2776-02, ####[facility] [id number] [place] [address] [place] Protein [Mass/Vol] 5.0 g/dL Low 6.3-8.0 [facility] Comment on above: Order Comment: Speci men Type: BLOOD SPECIMENOrdering Facility: [facility] Address: [address] [place] [address] Performed By: #### 2 4323-8, 2776-02, ####[facility]IA [id number] [place] [address] [place] Sodium [Moles/Vol] 140 mmol/L Normal 136-144 [facility] Comment on above: Order Comment: Speci men Type: BLOOD SPECIMENOrdering Facility: [facility] Address: [address] [place] [address] Performed By: #### 2 4323-8, 2776-02, ####[facility] [id number] [place] [address] [place] Urea nitrogen [Mass/Vol] 5 mg/dL Low 7-21 [facility] Comment on above: Order Comment: Speci men Type: BLOOD SPECIMENOrdering Facility: [facility] Address: [address] [place] [address] Performed By: #### 2 4323-8, 2776-02, ####[facility]ORYIA [id number] [place] [address] [place] Magnesium SerPl-mCncon 10-27 Magnesium [Mass/Vol] 1.9 mg/dL Normal 1.7-2.3 [facility] Comment on above: Order Comment: Speci men Type: BLOOD SPECIMENOrdering Facility: [facility] Address: [address] [place] [address] Performed By: #### 2 4323-8, 2777-1, ####[facility]ORATORYCLIA [id number] [facility] [place] [place] [address] [place] NUTRITIONon 10-27-2022 NUTRITION Normal [facility] Phosphate [facility]27 Phosphate [Mass/Vol] 3.1 mg/dL Normal 2.7-4.8 [facility] Comment on above: Order Comment: Speci men Type: BLOOD SPECIMENOrdering Facility: [facility] Address: [address] [place] [address] Performed By: #### 2 4323-8, 27708-15, ####[facility]ORYIA [id number] [facility] [place] [place] [address] [place] Upper GI endoscopyon 023 Upper GI endoscopy Normal [facility] CASE MGT INIT ASSESon 2022 CASE MGT INIT [facility] CBC panel Auto (Bld)on 10-26 Erythrocyte distribution width (RBC) [Ratio] 13.2 % Normal 11.5-15.0 [facility] Comment on above: Order Comment: Speci men Type: BLOOD SPECIMENOrdering Facility: [facility] Address: [address] Performed By: #### 5 8410-2 ####[facility]ORYIA [id number] [place] [id number] [place] Hematocrit (Bld) [Volume fraction] 34.9 % Low 36.0-46.0 [facility] Comment on above: Order Comment: Speci men Type: BLOOD SPECIMENOrdering Facility: [facility] Address: [address] [place] [address] Performed By: #### 5 8410-2 ####[facility]IA [id number] [address] [place] Hemoglobin (Bld) [Mass/Vol] 11.1 g/dL Low 11.5-15.5 [facility] Comment on above: Order Comment: Speci men Type: BLOOD SPECIMENOrdering Facility: [facility] Address: [address] [place] [address] Performed By: #### 5 8410-2 ####[facility]IA [id number] [address] [place] MCH (RBC) [Entitic mass] 30.9 pg Normal 26.0-34.0 [facility] Comment on above: Order Comment: Speci men Type: BLOOD SPECIMENOrdering Facility: [facility] Address: [address] [place] [address] Performed By: #### 5 8410-2 ####[facility] [id number] [address] [place] MCHC (RBC) [Mass/Vol] 31.8 g/dL Normal 30.5-36.0 [facility] Comment on above: Order Comment: Speci men Type: BLOOD SPECIMENOrdering Facility: [facility] Address: [address] [place] [address] Performed By: #### 5 8410-2 ####[facility] [id number] [address] [place] MCV (RBC) [Entitic vol] 97.2 fL Normal 80.0-100.0 [facility] Comment on above: Order Comment: Speci men Type: BLOOD SPECIMENOrdering Facility: [facility] Address: [address] [place] [address] Performed By: #### 5 8410-2 ####[facility]ORYIA [id number] [address] [place] Nucleated RBC (Bld) [#/Vol] 10*3/uL Normal <0.01 [facility] Comment on above: Order Comment: Speci men Type: BLOOD SPECIMENOrdering Facility: [facility] Address: [address] [address] Performed By: #### 5 8410-2 ####[facility]ATORYCLIA [id number] [place] [address] [place] Platelet mean volume (Bld) [Entitic vol] 11.9 fL Normal 9.0-12.7 [facility] Comment on above: Order Comment: Speci men Type: BLOOD SPECIMENOrdering Facility: [facility] Address: [address] [address] Performed By: #### 5 8410-2 ####[facility]IA [id number] [place] [address] [place] Platelets (Bld) [#/Vol] 181 10*3/uL Normal 150-400 [facility] Comment on above: Order Comment: Speci men Type: BLOOD SPECIMENOrdering Facility: [facility] Address: [address] Performed By: #### 5 8410-2 ####[facility]IA [id number] [place] [address] [place] RBC (Bld) [#/Vol] 3.59 10*6/uL Low 3.90-5.20 [facility] Comment on above: Order Comment: Speci men Type: BLOOD SPECIMENOrdering Facility: [facility] Address: [address] Performed By: #### 5 8410-2 ####[facility]ORYIA [id number] [place] [id number] [place] WBC (Bld) [#/Vol] 3.44 10*3/uL Low 3.70-11.00 [facility] Comment on above: Order Comment: Speci men Type: BLOOD SPECIMENOrdering Facility: [facility] Address: [address] Performed By: #### 5 8410-2 ####[facility]ORATORYCLIA [id number] [facility] [place] [address] [place] CONSULTon 10-26-2022 CONSULT Normal [facility] Comprehensive metabolic 2000 panelon 10-26-2022 Albumin [Mass/Vol] 3.3 g/dL Low 3.9-4.9 [facility] Comment on above: Order Comment: Speci men Type: BLOOD SPECIMENOrdering Facility: [facility] Address: [address] Performed By: #### 2 777-1, 20895-1, 13786-2, 6-3 ####[facility] LABORATORYCLIA [id number] [place] [address] [place] ALP [Catalytic activity/Vol] 52 U/L Normal 34-123 [facility] Comment on above: Order Comment: Speci men Type: BLOOD SPECIMENOrdering Facility: [facility] Address: [address] [address] Performed By: #### 2 777-1, 27317-6, 98925-1, 6-3 ####[facility]ITALCLIA [id number] [place] [address] [place] ALT [Catalytic activity/Vol] 15 U/L Normal 7-38 [facility] Comment on above: Order Comment: Speci men Type: BLOOD SPECIMENOrdering Facility: [facility] Address: [address] [place], [place] [id number] Performed By: #### 2 777-1, 27666-0, 31377-2, 6-3 ####[facility] LABORATORYCLIA [id number] [facility] [place] [place] [address] [place] Anion gap [Moles/Vol] 9 mmol/L Normal 9-18 [facility] Comment on above: Order Comment: Speci men Type: BLOOD SPECIMENOrdering Facility: [facility] Address: [address] [address] Performed By: #### 2 777-1, 15962-8, , 3016-3 ####[facility] LABORATORYCLIA [id number] [place] [address] [place] AST [Catalytic activity/Vol] 30 U/L Normal 13-35 [facility] Comment on above: Order Comment: Speci men Type: BLOOD SPECIMENOrdering Facility: [facility] Address: [address] [address] Performed By: #### 2 777-1, 53876-8, , 3 ####[facility] LABORATORYCLIA [id number] [place] [address] [place] Bilirubin [Mass/Vol] 0.4 mg/dL Normal 0.2-1.3 [facility] Comment on above: Order Comment: Speci men Type: BLOOD SPECIMENOrdering Facility: [facility] Address: [address] [address] Performed By: #### 2 777-1, 85150-3, , 3015-04 ####[facility]OSPITALCLIA [id number] [place] [address] [place] Calcium [Mass/Vol] 8.3 mg/dL Low 8.5-10.2 [facility] Comment on above: Order Comment: Speci men Type: BLOOD SPECIMENOrdering Facility: [facility] Address: [address] [place] [address] Performed By: #### 2 777-1, 12385-8, , 3015-04 ####[facility] LABORATORYCLIA [id number] [facility] [place] [address] [place] Chloride [Moles/Vol] 110 mmol/L High 97-105 [facility] Comment on above: Order Comment: Speci men Type: BLOOD SPECIMENOrdering Facility: [facility] Address: [address] Performed By: #### 2 777-1, 72454-4, , 3 ####[facility] LABORATORYCLIA [id number] [facility] [place] [place] [address] [place] CO2 [Moles/Vol] 20 mmol/L Low 22-30 [facility] Comment on above: Order Comment: Geraldo marrero Type: BLOOD SPECIMENOrdering Facility: [facility] Address: [address] [place] [address] Performed By: #### 2 777-1, 71488-8, 62110-5, 3015-3 ####[facility] LABORATORYCLIA [id number] [facility] [place] [place] [address] [place] Creatinine [Mass/Vol] 0.73 mg/dL Normal 0.58-0.96 [facility] Comment on above: Order Comment: Lyssai elida Type: BLOOD SPECIMENOrdering Facility: [facility] Address: [address] [place] [address] Performed By: #### 2 777-1, 45144-1, , 3015-3 ####[facility] LABORATORYCLIA [id number] [facility] [place] [place] [address] [place] Creatinine and Glomerular filtration rate.predicted panel (S/P/Bld) 112 mL/min/1.73m??? Normal >=60 [facility] Comment on above: Order Comment: Geraldo marrero Type: BLOOD SPECIMENOrdering Facility: [facility] Address: [address] [place] [address] Result Comment: Jessica mated Glomerular Filtration Rate (eGFR) is calculated [...] reflect actual GFR. Performed By: #### 2 777-1, 73247-8, 48428-0, 3015-3 ####[facility] LABORATORYCLIA [id number] [facility] [place] [place] [address] [place] Glucose [Mass/Vol] 83 mg/dL Normal 74-99 [facility] Comment on above: Order Comment: Geraldo marrero Type: BLOOD SPECIMENOrdering Facility: [facility] Address: [address] [place], [place] [address] Result Comment: The [place] Diabetes Association (ADA) provides guidance for cutoff [...] Standards of Medical Care in Diabetes 2016, [place] [employer]. Diabetes Care. 2016.39(Suppl 1). Performed By: #### 2 777-1, 18160-7, 74486-2, 6-3 ####[facility] HOSPITALCLIA [id number] [facility] [place] [place] [address] [place] Potassium [Moles/Vol] 4.2 mmol/L Normal 3.7-5.1 [facility] Comment on above: Order Comment: Geraldo [facility] Type: BLOOD SPECIMENOrdering Facility: [facility] Address: [address] [place], [place] [address] Performed By: #### 2 777-1, 93260-3, 58287-4, 6-3 ####[facility]OSPITALIA [id number] [facility] [place] [place] [address] [place] Protein [Mass/Vol] 5.0 g/dL Low 6.3-8.0 [facility] Comment on above: Order Comment: Geraldo marrero Type: BLOOD SPECIMENOrdering Facility: [facility] Address: [address] [place], [place] [address] Performed By: #### 2 777-1, 14284-6, 08391-0, 3016-3 ####[facility] HOSPITALIA [id number] [place] [address] [place] Sodium [Moles/Vol] 139 mmol/L Normal 136-144 [facility] Comment on above: Order Comment: Speci men Type: BLOOD SPECIMENOrdering Facility: [facility] Address: [address] [place] [address] Performed By: #### 2 777-1, 78403-3, 45933-1, 3015-3 ####[facility] LABORATORYCLIA [id number] [place] [address] [place] Urea nitrogen [Mass/Vol] 5 mg/dL Low 7-21 [facility] Comment on above: Order Comment: Speci men Type: BLOOD SPECIMENOrdering Facility: [facility] Address: [place] [address] Performed By: #### 2 777-1, 61191-9, , 3 ####[facility] LABORATORYCLIA [id number] [place] [address] [place] ED Note-Physicianon 10-27-19 ED Note-Physician Normal [facility] Comment on above: Result Comment: Elec tronically Signed By: Lonnie Rios PA-C\.br\Date and Time Signed: 10/20/22 13:50 EDT\.br\Electronically Co-Signed By: Earnest Jett DO\.br\Date and Time Co-Signed: 10/26/22 07:01 EDT Magnesium SerPl-mCncon 10-26 Magnesium [Mass/Vol] 1.9 mg/dL Normal 1.7-2.3 [facility] Comment on above: Order Comment: Speci men Type: BLOOD SPECIMENOrdering Facility: [facility] Address: [place] [address] Performed By: #### 2 777-1, 01331-8, , 3 ####[facility] LABORATORYCLIA [id number] [place] [address] [place] Phosphate SerPl-mCncon 10-26 Phosphate [Mass/Vol] 4.3 mg/dL Normal 2.7-4.8 [facility] Comment on above: Order Comment: Speci [facility] Type: BLOOD SPECIMENOrdering Facility: [facility] Address: [address] [address] Performed By: #### 2 777-1, 08771-8, 39447-4, 3015-3 ####[facility]ORATORYCLIA [id number] [facility] [place] [place] [address] [place] TSH SerPl-aCncon 10-26-2022 TSH Qn 0.712 m[IU]/L Normal 0.270-4.200 [facility] Comment on above: Order Comment: [facility] Type: BLOOD SPECIMENOrdering Facility: [facility] Address: [address] [address] Result Comment: If t he patient is , TSH reference range varies by gestational period:First Trimester (weeks 9-12): 0.180-2.990 mIU/LSecond Trimester: 0.110-3.980 mIU/LThird Trimester: 0.480-4.710 mIU/Lisa Johnson et al. A Practical Approach for the Verifications and Determination of Site- and Trimester-Specific Reference Intervals for Thyroid Function tests in . Thyroid, 2019:29:3:412-420. Claus Graf, et al. 2017 Guidelines of the [place] Thyroid Association for the Diagnosis and Management of Thyroid Disease during and the . Thyroid, 2017:27:3:315-389. Performed By: #### 2 777-1, 29595-6, , 3015-3 ####[facility]ORATORYCLIA [id number] [facility] [place] [place] [address] [place] CBC W Auto Differential pane l (Bld)on 10-25-2022 Basophils (Bld) [#/Vol] 0.04 10*3/uL Normal <0.11 [facility] Comment on above: Order Comment: Speci elida Type: BLOOD SPECIMENOrdering Facility: [facility] Address: [address] [address] Performed By: #### 5 7021-8 ####[facility] LABORATORYCLIA [id number] [facility] [place] [address] [place] Basophils/100 WBC (Bld) 1.1 % Normal [facility] Comment on above: Order Comment: Speci men Type: BLOOD SPECIMENOrdering Facility: [facility] Address: [address] [address] Performed By: #### 5 7021-8 ####[facility] LABORATORYIA [id number] [place] [address] [place] Differential cell count method Nom (Bld) Auto Normal [facility] Comment on above: Order Comment: Speci men Type: BLOOD SPECIMENOrdering Facility: [facility] Address: [address] [address] Performed By: #### 5 7021-8 ####[facility] [id number] [place] [address] [place] Eosinophils (Bld) [#/Vol] 0.07 10*3/uL Normal <0.46 [facility] Comment on above: Order Comment: Speci men Type: BLOOD SPECIMENOrdering Facility: [facility] Address: [address] [address] Performed By: #### 5 7021-8 ####[facility] HOSPITALIA [id number] [address] [place] Eosinophils/100 WBC (Bld) 1.9 % Normal [facility] Comment on above: Order Comment: Speci men Type: BLOOD SPECIMENOrdering Facility: [facility] Address: [address] [address] Performed By: #### 5 7021-8 ####[facility] [id number] [address] [place] Erythrocyte distribution width (RBC) [Ratio] 13.0 % Normal 11.5-15.0 [facility] Comment on above: Order Comment: Speci men Type: BLOOD SPECIMENOrdering Facility: [facility] Address: [address] [address] Performed By: #### 5 7021-8 ####[facility] LABORATORYCLIA [id number] [facility] [place] [address] [place] Hematocrit (Bld) [Volume fraction] 39.5 % Normal 36.0-46.0 [facility] Comment on above: Order Comment: Speci men Type: BLOOD SPECIMENOrdering Facility: [facility] Address: [address] [place] [address] Performed By: #### 5 7021-8 ####[facility] LABORATORYIA [id number] [facility] [place] [place] [address] [place] Hemoglobin (Bld) [Mass/Vol] 13.1 g/dL Normal 11.5-15.5 [facility] Comment on above: Order Comment: Speci men Type: BLOOD SPECIMENOrdering Facility: [facility] Address: [address] [place] [address] Performed By: #### 5 7021-8 ####[facility] HOSPITALIA [id number] [facility] [place] [address] [place] Immature granulocytes (Bld) [#/Vol] 10*3/uL Normal <0.10 [facility] Comment on above: Order Comment: Speci men Type: BLOOD SPECIMENOrdering Facility: [facility] Address: [address] [place] [address] Performed By: #### 5 7021-8 ####[facility] LABORATORYIA [id number] [facility] [place] [address] [place] Immature granulocytes/100 WBC (Bld) 0.3 % Normal [facility] Comment on above: Order Comment: Speci men Type: BLOOD SPECIMENOrdering Facility: [facility] Address: [address] [place] [address] Performed By: #### 5 7021-8 ####[facility] LABORATORYIA [id number] [facility] [id number] [place] Lymphocytes (Bld) [#/Vol] 1.11 10*3/uL Normal 1.00-4.00 [facility] Comment on above: Order Comment: Speci men Type: BLOOD SPECIMENOrdering Facility: [facility] Address: [address] [address] Performed By: #### 5 7021-8 ####[facility]OS[facility]ITALIA [id number] [address] [place] Lymphocytes/100 WBC (Bld) 29.4 % Normal [facility] Comment on above: Order Comment: Speci men Type: BLOOD SPECIMENOrdering Facility: [facility] Address: [address] [address] Performed By: #### 5 7021-8 ####[facility] HOSPITALIA [id number] [place] [address] [place] MCH (RBC) [Entitic mass] 30.5 pg Normal 26.0-34.0 [facility] Comment on above: Order Comment: Speci men Type: BLOOD SPECIMENOrdering Facility: [facility] Address: [address] [address] Performed By: #### 5 7021-8 ####[facility]PITALIA [id number] [address] [place] MCHC (RBC) [Mass/Vol] 33.2 g/dL Normal 30.5-36.0 [facility] Comment on above: Order Comment: Speci men Type: BLOOD SPECIMENOrdering Facility: [facility] Address: [address] [address] Performed By: #### 5 7021-8 ####[facility] LABORATORYIA [id number] [address] [place] MCV (RBC) [Entitic vol] 92.1 fL Normal 80.0-100.0 [facility] Comment on above: Order Comment: Speci men Type: BLOOD SPECIMENOrdering Facility: [facility] Address: [address] [address] Performed By: #### 5 7021-8 ####[facility] LABORATORYIA [id number] [place] [address] [place] Monocytes (Bld) [#/Vol] 0.27 10*3/uL Normal <0.87 [facility] Comment on above: Order Comment: Speci men Type: BLOOD SPECIMENOrdering Facility: [facility] Address: [address] [address] Performed By: #### 5 7021-8 ####[facility] LABORATORYCLIA [id number] [place] [address] [place] Monocytes/100 WBC (Bld) 7.1 % Normal [facility] Comment on above: Order Comment: Speci men Type: BLOOD SPECIMENOrdering Facility: [facility] Address: [address] [address] Performed By: #### 5 7021-8 ####[facility]OSPITALIA [id number] [place] [address] [place] Neutrophils (Bld) [#/Vol] 2.28 10*3/uL Normal 1.45-7.50 [facility] Comment on above: Order Comment: Speci men Type: BLOOD SPECIMENOrdering Facility: [facility] Address: [address] [address] Performed By: #### 5 7021-8 ####[facility]ITALIA [id number] [place] [address] [place] Neutrophils/100 WBC (Bld) 60.2 % Normal [facility] Comment on above: Order Comment: Speci men Type: BLOOD SPECIMENOrdering Facility: [facility] Address: [address] Performed By: #### 5 7021-8 ####[facility] LABORATORYIA [id number] [place] [address] [place] Nucleated RBC (Bld) [#/Vol] 10*3/uL Normal <0.01 [facility] Comment on above: Order Comment: Speci men Type: BLOOD SPECIMENOrdering Facility: [facility] Address: [address] Performed By: #### 5 7021-8 ####[facility] LABORATORYCLIA [id number] [facility] [place] [address] [place] Nucleated RBC/100 WBC (Bld) [Ratio] 0.0 /100 WBC Normal [facility] Comment on above: Order Comment: Speci men Type: BLOOD SPECIMENOrdering Facility: [facility] Address: [address] [place] [address] Performed By: #### 5 7021-8 ####[facility] LABORATORYIA [id number] [place] [address] [place] Platelet mean volume (Bld) [Entitic vol] 11.4 fL Normal 9.0-12.7 [facility] Comment on above: Order Comment: Speci men Type: BLOOD SPECIMENOrdering Facility: [facility] Address: [address] [place] [address] Performed By: #### 5 7021-8 ####[facility]ITALIA [id number] [place] [address] [place] Platelets (Bld) [#/Vol] 208 10*3/uL Normal 150-400 [facility] Comment on above: Order Comment: Speci men Type: BLOOD SPECIMENOrdering Facility: [facility] Address: [address] [place] [address] Performed By: #### 5 7021-8 ####[facility] LABORATORYIA [id number] [facility].[place] [id number] [place] RBC (Bld) [#/Vol] 4.29 10*6/uL Normal 3.90-5.20 [facility] Comment on above: Order Comment: Speci men Type: BLOOD SPECIMENOrdering Facility: [facility] Address: [address] [place] [address] Performed By: #### 5 7021-8 ####[facility] LABORATORYIA [id number] [place] [address] [place] WBC (Bld) [#/Vol] 3.78 10*3/uL Normal 3.70-11.00 [facility] Comment on above: Order Comment: Speci men Type: BLOOD SPECIMENOrdering Facility: [facility] Address: [address] [place] [address] Performed By: #### 5 7021-8 ####[facility] LABORATORYCLIA [id number] [place] [address] [place] ABD/PEL W IVCONon 023 CT ABD/PEL W IVCON Normal [facility]ital Comprehensive metabolic 2000 panelon 10-25-2022 Albumin [Mass/Vol] 4.2 g/dL Normal 3.9-4.9 [facility] Comment on above: Order Comment: Speci men Type: BLOOD SPECIMENOrdering Facility: [facility] Address: [address] [place] [address] Performed By: #### 1 9123-9, 24866-7, 3040-3 ####[facility] LABORATORYCLIA [id number] [place] [address] [place] ALP [Catalytic activity/Vol] 70 U/L Normal 34-123 [facility] Comment on above: Order Comment: Speci men Type: BLOOD SPECIMENOrdering Facility: [facility] Address: [address] [place] [address] Performed By: #### 1 9123-9, 51592-5, 3040-3 ####[facility]ORATORYCLIA [id number] [place] [address] [place] ALT [Catalytic activity/Vol] 21 U/L Normal 7-38 [facility] Comment on above: Order Comment: Speci men Type: BLOOD SPECIMENOrdering Facility: [facility] Address: [address] [place] [address] Performed By: #### 1 9123-9, 44744-9, 3040-3 ####[facility]ORATORYCLIA [id number] [place] [address] [place] Anion gap [Moles/Vol] 10 mmol/L Normal 9-18 [facility] Comment on above: Order Comment: Speci men Type: BLOOD SPECIMENOrdering Facility: [facility] Address: [address] Performed By: #### 1 9123-9, 51971-5, 0-3 ####[facility]PITALIA [id number] [place] [address] [place] AST [Catalytic activity/Vol] 38 U/L High 13-35 [facility] Comment on above: Order Comment: Speci men Type: BLOOD SPECIMENOrdering Facility: [facility] Address: [address] [address] Performed By: #### 1 9123-9, 71390-8, 0-3 ####[facility] H[facility]PITALIA [id number] [place] [address] [place] Bilirubin [Mass/Vol] 0.3 mg/dL Normal 0.2-1.3 [facility] Comment on above: Order Comment: Speci men Type: BLOOD SPECIMENOrdering Facility: [facility] Address: [address] [address] Performed By: #### 1 9123-9, 52187-7, 0-3 ####[facility]PITALIA [id number] [place] [address] [place] Calcium [Mass/Vol] 8.8 mg/dL Normal 8.5-10.2 [facility] Comment on above: Order Comment: Speci men Type: BLOOD SPECIMENOrdering Facility: [facility] Address: [address] [address] Performed By: #### 1 9123-9, 24508-5, 3040-3 ####[facility] H[facility]PITALIA [id number] [place] [address] [place] Chloride [Moles/Vol] 106 mmol/L High 97-105 [facility] Comment on above: Order Comment: Speci men Type: BLOOD SPECIMENOrdering Facility: [facility] Address: [address] [address] Performed By: #### 1 9123-9, 96467-6, 0-3 ####[facility] LABORATORYCLIA [id number] [facility] [place] [place] [address] [place] CO2 [Moles/Vol] 22 mmol/L Normal 22-30 [facility] Comment on above: Order Comment: Speci men Type: BLOOD SPECIMENOrdering Facility: [facility] Address: [address] [place] [address] Performed By: #### 1 9123-9, 38252-4, 3039-3 ####[facility]ITALIA [id number] [place] [address] [place] Creatinine [Mass/Vol] 0.82 mg/dL Normal 0.58-0.96 [facility] Comment on above: Order Comment: Speci men Type: BLOOD SPECIMENOrdering Facility: [facility] Address: [address] [place] [address] Performed By: #### 1 9123-9, , 3 ####[facility]PITALIA [id number] [place] [address] [place] Creatinine and Glomerular filtration rate.predicted panel (S/P/Bld) 97 mL/min/1.73m??? Normal >=60 [facility] Comment on above: Order Comment: Speci men Type: BLOOD SPECIMENOrdering Facility: [facility] Address: [address] [place] [address] Result Comment: Jessica mated Glomerular Filtration Rate (eGFR) is calculated [...] actual GFR. Performed By: #### 1 9123-9, 73694-6, 0-3 ####[facility]ORATORYIA [id number] [facility] [place] [place] [address] [place] Glucose [Mass/Vol] 85 mg/dL Normal 74-99 [facility] Comment on above: Order Comment: Lyssai men Type: BLOOD SPECIMENOrdering Facility: [facility] Address: [address] [place] [address] Result Comment: The [place] Diabetes [employer] (ADA) provides guidance for cutoff [...] Standards of Medical Care in Diabetes 2016, [place] [employer]. Diabetes Care. 2016.39(Suppl 1). Performed By: #### 1 9123-9, 25444-3, 3040-3 ####[facility]PITALCLIA [id number] [place] [address] [place] Potassium [Moles/Vol] 3.8 mmol/L Normal 3.7-5.1 [facility] Comment on above: Order Comment: Geraldo marrero Type: BLOOD SPECIMENOrdering Facility: [facility] Address: [address] [place] [address] Performed By: #### 1 9123-9, 13593-1, 3040-3 ####[facility] HOSPITALCLIA [id number] [facility] [place] [place] [address] [place] Protein [Mass/Vol] 6.5 g/dL Normal 6.3-8.0 [facility] Comment on above: Order Comment: Geraldo marrero Type: BLOOD SPECIMENOrdering Facility: [facility] Address: [address] [place] [address] Performed By: #### 1 9123-9, 55411-6, 3040-3 ####[facility] LABORATORYCLIA [id number] [place] [address] [place] Sodium [Moles/Vol] 138 mmol/L Normal 136-144 [facility]ital Comment on above: Order Comment: Speci men Type: BLOOD SPECIMENOrdering Facility: [facility] Address: [address] [place] [id number] Performed By: #### 1 9123-9, 10990-9, 3040-3 ####[facility] LABORATORYCLIA [id number] [place] [address] [place] [facility] Urea nitrogen [Mass/Vol] 7 mg/dL Normal 7-21 [facility] Comment on above: Order Comment: Speci men Type: BLOOD SPECIMENOrdering Facility: [facility] Address: [address] [facility] [address] Performed By: #### 1 9123-9, 32690-9, 3040-3 ####[facility] LABORATORYCLIA [id number] [place] [address] [place] D dimer FEU PPP-mCncon 10-25 Fibrin D-dimer FEU (PPP) [Mass/Vol] <190 Normal <500 [facility] Comment on above: Order Comment: Speci men Type: BLOOD SPECIMENOrdering Facility: [facility] Address: [address] [facility] [place] [address] Performed By: #### 4 8065-7 ####[facility] LABORATORYCLIA [id number] [place] [address] [place] ECG COMPLETEon 10-25-2022 ECG COMPLETE Normal [facility] ED NOTEon 10-25-2022 ED NOTE HNO ID: [id number] Author: Aisha Myers, DEE Service: ? Author Type: Registered Nurse Type: ED Notes Filed: 10/25/2022 8:19 AM Note Text: Pt unable to urinate sat this time. Aware urine sample is needed. Normal [facility] ED NOTE Normal [facility] ED PROV NOTEon 10-25-2022 ED PROV NOTE Normal [facility] HISTORY PHYSICALon HISTORY PHYSICAL Normal [facility] Lipase SerPl-cCncon 10-26-19 23 Lipase [Catalytic activity/Vol] 29 U/L Normal 16-61 [facility] Comment on above: Order Comment: Speci men Type: BLOOD SPECIMENOrdering Facility: [facility] Address: [address] [place] [address] Performed By: #### 1 9123-9, 58426-1, 3040-3 ####[facility] LABORATORYIA [id number] [place] [address] [facility] Magnesium SerPl-mCncon 10-25 Magnesium [Mass/Vol] 1.9 mg/dL Normal 1.7-2.3 [facility] Comment on above: Order Comment: Speci men Type: BLOOD SPECIMENOrdering Facility: [facility] Address: [address] [place], [place] [id number] Performed By: #### 1 9123-9, 74332-6, 0-3 ####[facility] [id number] [place] [address] [place] NURSING PROGon 10-25-2022 NURSING PROG Normal [facility] l Urinalysis complete panel (U )on 10-25-2022 Bilirubin Ql (U) Negative Normal Negative [facility] Comment on above: Order Comment: Speci men Type: URINE SPECIMENOrdering Facility: [facility] Address: [address] [place], [place] [id number] Performed By: #### 2 4356-8 ####[facility] [id number] [place] [address] [place] Clarity (Unsp spec) Clear Normal Clear [facility] Comment on above: Order Comment: Speci men Type: URINE SPECIMENOrdering Facility: [facility] Address: [address] [place] [address] Performed By: #### 2 4356-8 ####[facility] [id number] [place] [address] [place] Color (U) Colorless Normal yellow [facility] Comment on above: Order Comment: Speci men Type: URINE SPECIMENOrdering Facility: [facility] Address: [address] [place], [place] [id number] Performed By: #### 2 4356-8 ####[facility] [id number] [place] [address] [place] Epithelial cells LM.HPF (Urine sed) [#/Area] Few Normal [facility] Comment on above: Order Comment: Speci men Type: URINE SPECIMENOrdering Facility: [facility] Address: [address] [place] [address] Performed By: #### 2 4356-8 ####[facility] [id number] [place] [address] [place] Glucose Test strip (U) [Mass/Vol] Negative Normal Trace, Negative [facility] Comment on above: Order Comment: Speci men Type: URINE SPECIMENOrdering Facility: [facility] Address: [address] [place] [address] Performed By: #### 2 4356-8 ####[facility] [id number] [place] [address] [place] Hemoglobin Ql (U) Negative Normal Negative, Trace [facility] Comment on above: Order Comment: Speci men Type: URINE SPECIMENOrdering Facility: [facility] Address: [address] [place] [address] Performed By: #### 2 4356-8 ####[facility] [id number] [place] [address] [place] Ketones Ql (U) Negative Normal Negative, Trace [facility] Comment on above: Order Comment: Speci men Type: URINE SPECIMENOrdering Facility: [facility] Address: [address] [address] Performed By: #### 2 4356-8 ####[facility] [id number] [place] [address] [place] Leukocyte esterase Test strip Ql (U) Negative Normal Negative, 25 Patito/uL [facility] Comment on above: Order Comment: Speci men Type: URINE SPECIMENOrdering Facility: [facility] Address: [address] [address] Performed By: #### 2 4356-8 ####[facility] [id number] [place] [id number] [place] Nitrite Ql (U) Negative Normal Negative [facility] Comment on above: Order Comment: Speci men Type: URINE SPECIMENOrdering Facility: [facility] Address: [address] [place] [address] Performed By: #### 2 4356-8 ####[facility] [id number] [place] [address] [place] pH (U) 6.5 [pH] Normal 5.0-8.0 [facility] Comment on above: Order Comment: Speci men Type: URINE SPECIMENOrdering Facility: [facility] Address: [address] [place] [address] Performed By: #### 2 4356-8 ####[facility] [id number] [place] [address] [place] Protein (U) [Mass/Vol] Negative Normal Trace, Negative [facility] Comment on above: Order Comment: Speci men Type: URINE SPECIMENOrdering Facility: [facility] Address: [address] [place] [address] Performed By: #### 2 4356-8 ####[facility] [id number] [place] [id number] [place] RBC LM.HPF (Urine sed) [#/Area] 0-3 /HPF Normal 0-3 /HPF [facility] Comment on above: Order Comment: Speci men Type: URINE SPECIMENOrdering Facility: [facility] Address: [address] [place] [address] Performed By: #### 2 4356-8 ####[facility] [id number] [place] [address] [place] Specific gravity (U) [Rel density] 1.041 High 1.005-1.030 [facility] Comment on above: Order Comment: Speci men Type: URINE SPECIMENOrdering Facility: [facility] Address: [address] [address] Performed By: #### 2 4356-8 ####[facility] [id number] [place] [address] [facility] Urobilinogen Ql (U) Normal Normal Negative [facility] Comment on above: Order Comment: Speci men Type: URINE SPECIMENOrdering Facility: [facility] Address: [address] [address] Performed By: #### 2 4356-8 ####[facility] [id number] [address] [place] WBC LM.HPF (Urine sed) [#/Area] 0-5 /HPF Normal 0-5 /HPF [facility] Comment on above: Order Comment: Speci men Type: URINE SPECIMENOrdering Facility: [facility] Address: [address] [address] Performed By: #### 2 4356-8 ####[facility] [id number] [place] [address] [place] XR ABDOMEN (2 VIEWS)on [...] Kuldip Laughlin MD 10/23/22 Final result Normal [facility] CBC with Diffon 10-23-2022 Abs. Basophil 0.03 k/uL Normal 0.00-0.20 [facility] Comment on above: Performed By: #### L IP, CP, CDP #### [address] [place], [facility] Warehouse Person: Baldomero Espinoza MD Abs.Imm.Granulocyte <0.03 Normal 0.00-0.30 [facility] Comment on above: Performed By: #### L IP, CP, CDP #### [address] [place], [facility] Warehouse Person: Baldomero Espinoza MD Abs.Neutrophil (Seg) 3.51 k/uL Normal 1.50-8.10 [facility] Comment on above: Performed By: #### L IP, CP, CDP #### [address] [place] [address] Warehouse Person: Baldomero Espinoza MD Basophils/100 WBC (Bld) 1 % Normal 0-2 [facility] Comment on above: Performed By: #### L IP, CP, CDP #### [address] [place], [facility] Warehouse Person: Baldomero Espinoza MD Eosinophils (Bld) [#/Vol] 0.07 10*3/uL Normal 0.00-0.44 [facility] Comment on above: Performed By: #### L IP, CP, CDP #### [address] [place], [facility] Warehouse Person: Baldomero Espinoza MD Eosinophils/100 WBC (Bld) 1 % Normal 1-4 [facility] Comment on above: Performed By: #### L IP, CP, CDP #### [address] [place] [address] Warehouse Person: Baldomero Espinoza MD Erythrocyte distribution width (RBC) [Ratio] 12.7 % Normal 11.8-14.4 [facility] Comment on above: Performed By: #### L IP, CP, CDP #### [address] [place] [address] Warehouse Person: Baldomero Espinoza MD Hematocrit (Bld) [Volume fraction] 36.0 % Low 36.3-47.1 [facility] Comment on above: Performed By: #### L IP, CP, CDP #### [facility] [address] [place] [facility] Warehouse Person: Baldomero Espinoza MD Hemoglobin (Bld) [Mass/Vol] 12.2 g/dL Normal 11.9-15.1 [facility] Comment on above: Performed By: #### L IP, CP, CDP #### [address] [place] [address] Warehouse Person: Baldomero Espinoza MD Immature granulocytes/100 WBC (Bld) 0 % Normal 0 [facility] Comment on above: Performed By: #### L IP, CP, CDP #### [address] [place], [place] [address] Warehouse Person: Baldomero Espinoza MD Lymphocytes (Bld) [#/Vol] 2.05 10*3/uL Normal 1.10-3.70 [facility] Comment on above: Performed By: #### L IP, CP, CDP #### [address] [place] [address] Warehouse Person: Baldomero Espinoza MD Lymphocytes/100 WBC (Bld) 34 % Normal 24-43 [facility] Comment on above: Performed By: #### L IP, CP, CDP #### [address] [place], [facility]83 Warehouse Person: Baldomero Espinoza MD MCH (RBC) [Entitic mass] 30.8 pg Normal 25.2-33.5 [facility] Comment on above: Performed By: #### L IP, CP, CDP #### [facility] [address] [place] [address] [place] [facility]83 Warehouse Person: Baldomero Espinoza MD MCHC (RBC) [Mass/Vol] 33.9 g/dL Normal 28.4-34.8 [facility] Comment on above: Performed By: #### L JUDITH BROWN, CDP #### [facility] [address] [place], [place] [address] Warehouse Person: Baldomero Espinoza MD MCV (RBC) [Entitic vol] 90.9 fL Normal 82.6-102.9 [facility] Comment on above: Performed By: #### L JUDITH BROWN, CDP #### [address] [place], [place] [address] Warehouse Person: Baldomero Espinoza MD Monocytes (Bld) [#/Vol] 0.44 10*3/uL Normal 0.10-1.20 [facility] Comment on above: Performed By: #### L JUDITH RBOWN, CDP #### [address] [place], [place] [address] Warehouse Person: Baldomero Espinoza MD Monocytes/100 WBC (Bld) 7 % Normal 3-12 [facility] Comment on above: Performed By: #### L JUDITH BROWN, CDP #### [address] [place], [place] [address] Warehouse Person: Baldomero Espinoza MD Neutrophil (Seg) 57 % Normal 36-65 [facility] Comment on above: Performed By: #### L JUDITH BROWN, CDP #### [address] [place], [place] [address] Warehouse Person: Baldomero Espinoza MD NRBC Automated 0.0 per 100 WBC Normal 0.0 [facility] Comment on above: Performed By: #### L JUDITH BROWN, CDP #### [facility] [address] [place], [place] [address] Warehouse Person: Baldomero Espinoza MD Platelet mean volume (Bld) [Entitic vol] 11.1 fL Normal 8.1-13.5 [facility] Comment on above: Performed By: #### L IP, CP, CDP #### [facility] [address] [place], [place] [phone] Warehouse Person: Baldomero Espinoza MD Platelets (Bld) [#/Vol] 226 10*3/uL Normal 138-453 [facility] Comment on above: Performed By: #### L IP, CP, CDP #### [facility] [address] [place], [place] [address] Warehouse Person: Baldomero Espinoza MD RBC (Bld) [#/Vol] 3.96 10*6/uL Normal 3.95-5.11 [facility] Comment on above: Performed By: #### L IP, CP, CDP #### [facility] [address] [place], [place] 12[address] Warehouse Person: Baldomero Espinoza MD WBC (Bld) [#/Vol] 6.1 10*3/uL Normal 3.5-11.3 [facility] Comment on above: Performed By: #### L IP, CP, CDP #### [facility] [address] [place] [address] Warehouse Person: Baldomero Espinoza MD CNPNon 10-23-2022 CNPN Normal [facility] Comp Metabolic Profon 2022 Albumin [Mass/Vol] 4.1 g/dL Normal 3.5-5.2 [facility] Comment on above: Performed By: #### L IP, CP, CDP #### [facility] [address] [place] [address] Warehouse Person: Baldomero Espinoza MD Albumin/Glob Ratio 1.7 Normal 1.0-2.5 [facility] Comment on above: Performed By: #### L IP, CP, CDP #### [facility] [address] [place] [address] Warehouse Person: Baldomero Espinoza MD Alkaline Phos 64 U/L Normal 35-104 [facility] Comment on above: Performed By: #### L IP, CP, CDP #### [facility] [address] [place] [address] Warehouse Person: Baldomero Espinoza MD ALT [Catalytic activity/Vol] 19 U/L Normal 5-33 [facility] Comment on above: Performed By: #### L IP, CP, CDP #### [facility] [address] [place], [place] [address] Warehouse Person: Baldomero Espinoza MD Anion gap [Moles/Vol] 11 mmol/L Normal 9-17 [facility] Comment on above: Performed By: #### L IP, CP, CDP #### [facility] [address] [place], [place] [address] Warehouse Person: Baldomero Espinoza MD AST [Catalytic activity/Vol] 33 U/L High <32 [facility] Comment on above: Performed By: #### L IP, CP, CDP #### [facility] [address] [place], [place] [address] Warehouse Person: Baldomero Espinoza MD Bilirubin [Mass/Vol] 0.5 mg/dL Normal 0.3-1.2 [facility] Comment on above: Performed By: #### L IP, CP, CDP #### [facility] [address] [place], [place] [address] Warehouse Person: Baldomero Espinoza MD BUN/CRE Ratio 14 Normal 9-20 [facility] Comment on above: Performed By: #### L IP, CP, CDP #### [facility] [address] [place] [address] Warehouse Person: Baldomero Espinoza MD Calcium [Mass/Vol] 9.0 mg/dL Normal 8.6-10.4 [facility] Comment on above: Performed By: #### L IP, CP, CDP #### [facility] [address] [place] [address] Warehouse Person: Baldomero Espinoza MD Chloride [Moles/Vol] 103 mmol/L Normal 98-107 [facility] Comment on above: Performed By: #### L IP, CP, CDP #### [facility] [address] [place] [address] Warehouse Person: Baldomero Espinoza MD CO2 [Moles/Vol] 22 mmol/L Normal 20-31 [facility] Comment on above: Performed By: #### L IP, CP, CDP #### [facility] [address] [place], [place] [address] Warehouse Person: Baldomero Espinoza MD Creatinine [Mass/Vol] 0.7 mg/dL Normal 0.5-0.9 [facility] Comment on above: Performed By: #### L KEVIN CP, CDP #### [facility] [address] [place] [address] Warehouse Person: Baldomero Espinoza MD GFR/1.73 sq M.predicted among non-blacks MDRD (S/P/Bld) [Vol rate/Area] mL/min/{1.73_m2} Normal >60 [facility] Comment on above: Result Comment: These [...] By: #### L IP, CP, CDP #### [facility] [address] [place] [address] Warehouse Person: Baldomero Espinoza MD Glucose [Mass/Vol] 86 mg/dL Normal 70-99 [facility] Comment on above: Performed By: #### L IP, CP, CDP #### [facility] [address] [place] [address] Warehouse Person: Baldomero Espinoza MD Potassium [Moles/Vol] 3.4 mmol/L Low 3.7-5.3 [facility] Comment on above: Performed By: #### L IP, CP, CDP #### [facility] [address] [place] [address] Warehouse Person: Baldomero Espinoza MD Protein [Mass/Vol] 6.5 g/dL Normal 6.4-8.3 [facility] Comment on above: Performed By: #### L IP CP, CDP #### [facility] [address] [place] [address] Warehouse Person: Baldomero Espinoza MD Sodium [Moles/Vol] 136 mmol/L Normal 135-144 [facility] Comment on above: Performed By: #### L JUDITH BROWN, CDP #### [facility] [address] [place] [address] Warehouse Person: Baldomero Espinoza MD Urea nitrogen [Mass/Vol] 10 mg/dL Normal 6-20 [facility] Comment on above: Performed By: #### L KEVIN CP, CDP #### [facility] [address] [place] [address] Warehouse Person: Baldomero Espinoza MD HCG, ,Urineon 10-23 Beta HCG ( test) Ql (U) Negative Normal NEG [facility] Comment on above: Result Comment: Spec imens with hCG levels near the threshold of the test (25 mIU/mL) may give a negative or indeterminate result. In such cases, another test should be performed with a new specimen in 48-72 hours. If early is suspected clinically in this setting, correlation with quantitative serum b-hCG level is suggested. [employer] has confirmed the use of plasma for this test. This has not been cleared or approved by the U.S. Food and Drug Administration. The FDA has determined that such clearance is not necessary. Performed By: #### U HCG, UAMIC #### [facility] [address] [place], [place] [address] Warehouse Person: Baldomero Espinoza MD Lactic Acidon 10-23-2022 Lactate [Moles/Vol] 0.8 mmol/L Normal 0.5-2.2 [facility] Comment on above: Performed By: #### L ACTIC #### [facility] [address] [place], [place] [address] Warehouse Person: Baldomero Espinoza MD Lipaseon 10-23-2022 Lipase [Catalytic activity/Vol] 32 U/L Normal 13-60 [facility] Comment on above: Performed By: #### L IP, CP, CDP #### [facility] [address] [place], [facility]83 Warehouse Person: Baldomero Espinoza MD Urinalysis w/ Microon 2022 Bacteria 1+ Abnormal NONE [facility] Comment on above: Performed By: #### U HCG, UAMIC ####[facility] , [place] [address]83 [facility] Director: Baldomero Espinoza MD Bilirubin, SemiQt,Ur Negative Normal NEG [facility] Comment on above: Performed By: #### U HCG, UAMIC ####[facility] , [facility] Lab Director: Baldomero Espinoza MD Blood, Urine Negative Normal NEG [facility] Comment on above: Performed By: #### U HCG, UAMIC ####[facility] , [place] 14[address] Lab Director: Baldomero Espinoza MD Clarity (U) Clear Normal CLEAR [facility] Comment on above: Performed By: #### U HCG, UAMIC ####[facility] , [place] [address] Lab Director: Baldomero Espinoza MD Color (U) Yellow Normal YEL [facility] Comment on above: Performed By: #### U HCG, UAMIC ####[facility] [place] [address] Lab Director: Baldomero Espinoza MD Epithelial cells LM Ql (Urine sed) 2 TO 5 Normal 0-25 [facility] Comment on above: Performed By: #### U HCG, UAMIC ####[facility] [place] [address] Lab Director: Baldomero Espinoza MD Glucose Ql (U) Negative Normal NEG [facility] Comment on above: Performed By: #### U HCG, UAMIC ####[address] , [place] [id number] Lab Director: Baldomero Espinoza MD Ketones Ql (U) Negative Normal NEG [facility] Comment on above: Performed By: #### U HCG, UAMIC ####[address] [place] [address] Lab Director: Baldomero Espinoza MD Leukocyte esterase Test strip Ql (U) Negative Normal NEG [facility] Comment on above: Performed By: #### U HCG, UAMIC ####[address] [place] [address] Lab Director: Baldomero Espinoza MD Mucus Strands TRACE Abnormal NONE [facility] Comment on above: Performed By: #### U HCG, UAMIC ####[facility] [place] [address] Lab Director: Baldomero Espinoza MD Nitrite,Ur Negative Normal NEG [facility] Comment on above: Performed By: #### U HCG, UAMIC ####[facility] [place] [address] Lab Director: Baldomero Espinoza MD PH,Ur 6.5 Normal 5.0-9.0 [facility] Comment on above: Performed By: #### U HCG, UAMIC ####[address] , [place] 09[address] Lab Director: Baldomero Espinoza MD Protein Ql (U) Negative Normal NEG [facility] Comment on above: Performed By: #### U HCG, UAMIC ####[address] , [place] 424[address]83 Lab Director: Baldomero Espinoza MD Spec. [place],Ur 1.010 Normal 1.010-1.020 [facility] Comment on above: Performed By: #### U HCG, UAMIC ####[address] , [place] [address] lab Director: Baldomero Espinoza MD Urine RBC's 0 TO 2 Normal 0-2 [facility] Comment on above: Performed By: #### U HCG, UAMIC ####[address] [place] [address] lab Director: Baldomero Espinoza MD Urine WBC's 0 TO 2 Normal 0-5 [facility] Comment on above: Performed By: #### U HCG, UAMIC ####[address] , [place] 482[address] lab Director: Baldomero Espinoza MD Urobilinogen,Ur Normal Normal 0.0-1.0 [facility] Comment on above: Performed By: #### U HCG, UAMIC ####[address] , [place] 0[address]83 Lab Director: Baldomero Espinoza MD Auto Diffon 10-20-2022 Basophils/100 WBC (Bld) 1.0 % Normal 0.0-2.0 [facility] Comment on above: Order Comment: Order Added by Discern Expert. Performed By: #### 2 536042, [id number], 8364576, 5511086, 8545539 ####[address] [place] [address] Basophils/Leukocyte s Auto (Bld) [Pure # fraction] 0.0 E9/L Normal 0.0-0.2 [facility] Comment on above: Order Comment: Order Added by Discern Expert. Performed By: #### 2 354828, [id number], 2381798, 5047419, 2474821 ####[address] [place] [address] Eosinophils/100 WBC (Bld) 2.2 % Normal 0.0-8.0 [facility] Comment on above: Order Comment: Order Added by Discern Expert. Performed By: #### 2 556628, 04491535, 9331696, 2306402, 6413423 ####[address] [address] Eosinophils/Leukocy stevan Auto (Bld) [Pure # fraction] 0.1 E9/L Normal 0.0-0.5 [facility] Comment on above: Order Comment: Order Added by Discern Expert. Performed By: #### 2 687754, 39078007, 5904511, 1056597, 0610383 ####[address] [address] Lymphocytes/100 WBC (Bld) 35.9 % Normal 14.0-50.0 [facility] Comment on above: Order Comment: Order Added by Discern Expert. Performed By: #### 2 376612, 38066437, 8710399, 9114399, 3412196 ####[address] [address] Lymphocytes/Leukocy stevan Auto (Bld) [Pure # fraction] 1.6 E9/L Normal 1.0-4.0 [facility] Comment on above: Order Comment: Order Added by Discern Expert. Performed By: #### 2 992611, 54459721, 5133324, 9950229, 7903076 ####[address] [address] Monocytes/100 WBC (Bld) 5.9 % Normal 4.0-14.0 [facility] Comment on above: Order Comment: Order Added by Discern Expert. Performed By: #### 2 236769, 75591641, 9153953, 4735156, 4139233 ####[address] [place] [address] Monocytes/Leukocyte s Auto (Bld) [Pure # fraction] 0.3 E9/L Normal 0.2-1.0 [facility] Comment on above: Order Comment: Order Added by Discern Expert. Performed By: #### 2 299684, 55812830, 9403595, 7836952, 9555321 ####[address] [place] [address] Neutrophils/100 WBC (Bld) 55.0 % Normal 36.0-75.0 [facility] Comment on above: Order Comment: Order Added by Discern Expert. Performed By: #### 2 049747, 46521702, 0436059, 2466485, 4577644 ####[address] [place] [address] Neutrophils/Leukocy stevan Auto (Bld) [Pure # fraction] 2.5 E9/L Normal 2.0-7.5 [facility] Comment on above: Order Comment: Order Added by Discern Expert. Performed By: #### 2 728478, 81078182, 6674348, 0161493, 1345629 ####[address] [address] CBC w/ Auto Diffon 3 Erythrocyte distribution width (RBC) [Ratio] 14.0 % Normal 10.9-14.2 [facility] Comment on above: Performed By: #### 2 327597, 34141854, 3462352, 9678929, 3681253 ####[address] [place] [address] Hematocrit (Bld) [Volume fraction] 40.1 % Normal 34.0-46.0 [facility] Comment on above: Performed By: #### 2 475060, 47309048, 1520769, 4634767, 5055836 ####[facility] [address] [address] Hemoglobin (Bld) [Mass/Vol] 13.7 g/dL Normal 12.0-16.0 [facility] Comment on above: Performed By: #### 2 015553, 45793724, 5265787, 8020148, 1919103 ####[place] [address] MCH (RBC) [Entitic mass] 30.7 pg Normal 27.0-34.0 [facility] Comment on above: Performed By: #### 2 878243, 46830372, 9075371, 2964818, 7175276 ####[place] [address] MCHC (RBC) [Mass/Vol] 34.2 g/dL Normal 31.4-36.0 [facility] Comment on above: Performed By: #### 2 931486, 65735192, 6213315, 0525724, 9677563 ####[place] [address] MCV (RBC) [Entitic vol] 89.9 fL Normal 80.0-100.0 [facility] Comment on above: Performed By: #### 2 047215, 44047157, 2053488, 5640273, 0727637 ####[address] [address] Platelet mean volume (Bld) [Entitic vol] 9.7 fL Normal 6.4-10.8 [facility] Comment on above: Performed By: #### 2 094994, 73343192, 7989637, 4275487, 7619144 ####[address] [address] Platelets (Bld) [#/Vol] 258.0 E9/L Normal 150.0-500.0 [facility] Comment on above: Performed By: #### 2 943676, 89871144, 6826951, 2295042, 5757469 ####[facility] [address] [place] [address] RBC (Bld) [#/Vol] 4.5 E12/L Normal 4.3-5.9 [facility] Comment on above: Performed By: #### 2 767975, 31530816, 9569049, 3667708, 6991529 ####[facility] [address] [place] [address] WBC corrected for nucl RBC Auto (Bld) [#/Vol] 4.5 E9/L Normal 4.0-11.0 [facility] Comment on above: Performed By: #### 2 461443, 90224152, 2294360, 5002991, 6801925 ####[facility] [address] [place] [address] CHEMISTRYOrdered By: SYSTEM SYSTEM on 10-20-2022 Albumin [Mass/Vol] 4.2 g/dL Normal 3.3 - 5.0 gm/dL F [facility] Remisol ALP [Catalytic activity/Vol] 55 [iU]/d Normal 21 - 98 Int._Unit/L [facility] Remisol ALT No additional P-5'-P [Catalytic activity/Vol] 27 [iU]/d Normal 6 - 46 Int._Unit/L [facility] Remisol AST [Catalytic activity/Vol] 42 [iU]/d Normal 5 - 43 Int._Unit/L [facility] Remisol Bilirubin [Mass/Vol] 0.4 mg/dL Normal 0.0 - 1.1 mg/dL [facility] Remisol Calcium [Mass/Vol] 9.0 mg/dL Normal 8.9 - 11.1 mg/dL [facility] Chloride [Moles/Vol] 108 mmol/L Normal 101 - 111 mmol/L [facility] CO2 [Moles/Vol] 24 mmol/L Normal 21 - 31 mmol/L [facility] Remisol Creatinine [Mass/Vol] 0.9 mg/dL Normal 0.5 - 1.3 mg/dL [facility] Remisol GFR/1.73 sq M.predicted among non-blacks MDRD (S/P/Bld) [Vol rate/Area] 87 mL/min/1.73 m2 Normal >=59mL/min/1.73 m2 [facility] Chem S Lipase [Catalytic activity/Vol] 35 U/L Normal 13 - 58 unit/L [facility] [place] Remisol Potassium [Moles/Vol] 3.8 mmol/L Normal 3.5 - 5.3 mmol/L [facility] [place] Remisol Protein [Mass/Vol] 7.2 g/dL Normal 6.0 - 7.8 gm/dL F [facility] Remisol Sodium [Moles/Vol] 139 mmol/L Normal 135 - 145 mmol/L [facility] [facility] Remisol Urea nitrogen [Mass/Vol] 11 mg/dL Normal 5 - 21 mg/dL [facility] [place] [facility] Remisol CHEMISTRYOrdered By: Pranav Meng on 10-20-2022 Albumin/Globulin [Mass ratio] 1.4 {ratio} Normal 1.1 - 2.2 [facility] [place] [facility] Chem S Anion gap [Moles/Vol] 11 mmol/L Normal 6 - 16 mEq/L [facility] Chem S Globulin (S) [Mass/Vol] 3.0 g/dL Normal 1.4 - 4.0 gm/dL [facility] Chem S Glucose [Mass/Vol] 86 mg/dL Normal 55 - 199 mg/dL [facility] Chem S Urea nitrogen/Creatinine [Mass ratio] 12 mg/mg Normal 10 - 20 [facility] Chem S CMPon 10-20-2022 Albumin/Globulin (S) [Mass conc ratio] 1.4 Normal 1.1-2.2 [facility] Comment on above: Performed By: #### 2 795782, 90807150, 3987927, 9417532, 9914261 ####[facility] [address] [place] [address] Anion gap [Moles/Vol] 11 mmol/L Normal 6-16 [facility] Comment on above: Performed By: #### 2 060728, 34797555, 0196533, 2071654, 5098676 ####[facility] [address] [place] [address] Globulin (S) [Mass/Vol] 3.0 g/dL Normal 1.4-4.0 [facility] Comment on above: Performed By: #### 2 672204, 66442097, 2297239, 1219052, 8160123 ####[facility] [address] [place] [address] Glucose [Mass/Vol] 86 mg/dL Normal 55-199 [facility] Comment on above: Result Comment: If t his glucose result represents a fasting glucose, interpretation should refer to the following reference range: 55-99 mg/dL Performed By: #### 2 358532, 45679984, 8426983, 8566722, 1905490 ####[facility] [address] [place] [address] Urea nitrogen/Creatinine [Mass ratio] 12 No Units Normal 10-20 [facility] Comment on above: Performed By: #### 2 983819, 11234376, 8628808, 0252075, 8111415 ####[facility] [address] [place] [address] Albumin [Mass/Vol] 4.2 g/dL Normal 3.3-5.0 [facility] Comment on above: Performed By: #### 2 600712, 89289938, 4513581, 4231111, 2289772 ####[facility] [address] [place] [address] ALP [Catalytic activity/Vol] 55 Int._Unit/L Normal 21-98 [facility] Comment on above: Performed By: #### 2 453893, 99094261, 5674962, 8196968, 8400522 ####[facility] [address] [place] [address] ALT No additional P-5'-P [Catalytic activity/Vol] 27 Int._Unit/L Normal 6-46 [facility] Comment on above: Performed By: #### 2 424202, 14131502, 3999800, 2488894, 1000410 ####[facility] [address] [place] [address] AST [Catalytic activity/Vol] 42 Int._Unit/L Normal 5-43 [facility] Comment on above: Performed By: #### 2 515998, 84973079, 6951918, 2044490, 3645463 ####[facility] [address] [place] [address] Bilirubin [Mass/Vol] 0.4 mg/dL Normal 0.0-1.1 [facility] Comment on above: Performed By: #### 2 877201, 71870031, 6729782, 7338476, 0339206 ####[facility] [address] [place] [address] Calcium [Mass/Vol] 9.0 mg/dL Normal 8.9-11.1 [facility] Comment on above: Performed By: #### 2 278331, 02187675, 2795295, 9577014, 4491150 ####[facility] [address] [place] [address] Chloride [Moles/Vol] 108 mmol/L Normal 101-111 [facility] Comment on above: Performed By: #### 2 063484, 88561149, 7971847, 6958577, 7514200 ####[facility] [address] [place] [address] CO2 [Moles/Vol] 24 mmol/L Normal 21-31 [facility] Comment on above: Performed By: #### 2 270903, 60421840, 7423509, 2125163, 7157157 ####[facility] [address] [place] [address] Creatinine [Mass/Vol] 0.9 mg/dL Normal 0.5-1.3 [facility] Comment on above: Performed By: #### 2 798762, 10512263, 5490345, 9576922, 1369787 ####[facility] [address] [place] [address] Potassium [Moles/Vol] 3.8 mmol/L Normal 3.5-5.3 [facility] Comment on above: Performed By: #### 2 308149, 51464502, 1514020, 9729307, 0120626 ####[facility] [address] [place] [address] Protein [Mass/Vol] 7.2 g/dL Normal 6.0-7.8 [facility] Comment on above: Performed By: #### 2 917342, 03259380, 7839157, 3228897, 4474344 ####[facility] [address] [place] [address] Sodium [Moles/Vol] 139 mmol/L Normal 135-145 [facility] Comment on above: Performed By: #### 2 224372, 76827610, 2568017, 1571241, 6339842 ####[facility] [address] [place] [address] Urea nitrogen [Mass/Vol] 11 mg/dL Normal 5-21 [facility] Comment on above: Performed By: #### 2 906834, 51147927, 5818660, 9233614, 1926465 ####[facility] [address] [place] [address] CNPNon 10-20-2022 CNPN Normal [facility] CT Abdomen/Pelvis w/o Contra ston 10-20-2022 CT Abdomen/Pelvis w/o Contrast Normal [facility] CT Chest w/o Contraston CT Chest w/o Contrast Normal [facility] Consent for Treatmenton Consent for Treatment [id number] 2D#1.00CD:127 Normal [facility] Discharge Instructionson Discharge Instructions [id number]#1.00CD:127 Normal [facility] ED Clinical Summaryon 2022 ED Clinical Summary Normal [facility] ED Patient Education Noteon 10-20-2022 ED Patient Education Note Normal [facility] ED Patient Summaryon 023 ED Patient Summary Normal [facility] HEMATOLOGYOrdered By: SYSTEM SYSTEM on 10-20-2022 Basophils/100 WBC (Bld) 1.0 % Normal 0.0 - 2.0 % [facility]Auto[facility] Basophils/Leukocyte s Auto (Bld) [Pure # fraction] 0.0 E9/L Normal 0.0 - 0.2 E9/L [facility]Auto[facility] Eosinophils/100 WBC (Bld) 2.2 % Normal 0.0 - 8.0 % [facility]eAuto[facility] Eosinophils/Leukocy stevan Auto (Bld) [Pure # fraction] 0.1 E9/L Normal 0.0 - 0.5 E9/L [facility]Auto[facility] Lymphocytes/100 WBC (Bld) 35.9 % Normal 14.0 - 50.0 % [facility]Auto[facility] Lymphocytes/Leukocy stevan Auto (Bld) [Pure # fraction] 1.6 E9/L Normal 1.0 - 4.0 E9/L [facility] Monocytes/100 WBC (Bld) 5.9 % Normal 4.0 - 14.0 % [facility]Auto[facility] Monocytes/Leukocyte s Auto (Bld) [Pure # fraction] 0.3 E9/L Normal 0.2 - 1.0 E9/L [facility] Neutrophils/100 WBC (Bld) 55.0 % Normal 36.0 - 75.0 % [facility]Auto[facility] Neutrophils/Leukocy stevan Auto (Bld) [Pure # fraction] 2.5 E9/L Normal 2.0 - 7.5 E9/L [facility] HEMATOLOGYOrdered By: Ciara Renteria on 10-20-2022 Erythrocyte distribution width (RBC) [Ratio] 14.0 % Normal 10.9 - 14.2 % [facility] Hematocrit (Bld) [Volume fraction] 40.1 % Normal 34.0 - 46.0 % [facility]Auto[facility] Hemoglobin (Bld) [Mass/Vol] 13.7 g/dL Normal 12.0 - 16.0 gm/dL [facility] MCH (RBC) [Entitic mass] 30.7 pg Normal 27.0 - 34.0 pg [facility] MCHC (RBC) [Mass/Vol] 34.2 g/dL Normal 31.4 - 36.0 gm/dL [facility] MCV (RBC) [Entitic vol] 89.9 fL Normal 80.0 - 100.0 fL [facility] Platelet mean volume (Bld) [Entitic vol] 9.7 fL Normal 6.4 - 10.8 fL [facility]eAutoSS Platelets (Bld) [#/Vol] 258.0 E9/L Normal 150.0 - 500.0 E9/L [facility]eAutoSS RBC (Bld) [#/Vol] 4.5 E12/L Normal 4.3 - 5.9 E12/L [facility] HemeAutoSS WBC corrected for nucl RBC Auto (Bld) [#/Vol] 4.5 E9/L Normal 4.0 - 11.0 E9/L [facility]eAutoSS Lipase Levelon 10-20-2022 Lipase [Catalytic activity/Vol] 35 U/L Normal 13-58 [facility] Comment on above: Performed By: #### 2 371206, 13800450, 6641820, 5621084, 1739901 ####[facility] [address] [place] [address] Prescriptions/Work Noteson 0 10-20-2022 Prescriptions/Work Notes [id number]#1.00CD:127 Normal [facility] Prescriptions/Work Notes [id number]#1.00CD:127 Normal [facility] Comment on above: Other Comment: scann ed in error UA With Cult Reflexon 2022 Bilirubin Ql (U) Negative Normal Negative [facility] Comment on above: Performed By: #### 1 0062549 ####[facility] [address] [place] [address] Clarity (U) CLEAR Normal Clear [facility] Comment on above: Performed By: #### 1 4895537 ####[facility] [address] [place] [address] Color (U) YELLOW Normal Yellow [facility] Comment on above: Performed By: #### 1 2853473 ####[address] [place] [address] Epithelial cells.squamous LM.HPF (Urine sed) [#/Area] 3-4 Normal 0-2 [facility] Comment on above: Performed By: #### 1 8560461 ####[facility] [address] [place] [address] Glucose Test strip (U) [Mass/Vol] Negative Normal Negative [facility] Comment on above: Performed By: #### 1 9290805 ####[address] [address] Hemoglobin Ql (U) Negative Normal Negative [facility] Comment on above: Performed By: #### 1 8239651 ####[address] [address] Ketones (U) [Mass/Vol] Negative Normal Negative [facility] Comment on above: Performed By: #### 1 6522804 ####[address] [address] Sauget.plasma/Lith ium.RBC (Bld) [Mass ratio] 0-3 Normal 0-3 [facility] Comment on above: Performed By: #### 1 4813510 ####[address] [address] Nitrite Ql (U) Negative Normal Negative [facility] Comment on above: Performed By: #### 1 8439937 ####[address] [address] pH (U) 7.5 [pH] Invalid Interpretation Code 5.0-9.0 [facility] Comment on above: Performed By: #### 1 8645042 ####[address] [address] Protein (U) [Mass/Vol] Negative Normal Negative [facility] Comment on above: Performed By: #### 1 2616289 ####[address] [address] Specific gravity (U) [Rel density] 1.015 Invalid Interpretation Code 1.005-1.030 [facility] Comment on above: Performed By: #### 1 0174945 ####[address] [address] Type of Urine collection method Clean Catch Normal [facility] Comment on above: Performed By: #### 1 3942636 ####[facility] [address] [place] [address] Urobilinogen Qn (U) 0.2 {Munir'U}/dL Normal 0.0-1.0 [facility] Comment on above: Performed By: #### 1 5252363 ####[facility] [address] [place] [address] WBC Auto Ql (U) Negative Normal Negative [facility] Comment on above: Performed By: #### 1 7606772 ####[facility] [address] [place] [address] WBC LM.HPF (Urine sed) [#/Area] 0-5 Normal 0-5 [facility] Comment on above: Performed By: #### 1 6372007 ####[facility] [address] [place] [address] URINALYSISOrdered By: Edilberto Meng on 10-20-2022 Bilirubin Ql (U) Negative (10/20/22 10:25 AM) Normal Negative [facility] UA Auto SS Clarity (U) Clear (10/20/22 10:25 AM) Normal Clear [facility] UA Auto SS Color (U) Yellow (10/20/22 10:25 AM) Normal Yellow [facility] UA Auto SS Epithelial cells.squamous LM.HPF (Urine sed) [#/Area] 3-4 /HPF Normal 0-2/HPF [facility] UA Auto SS Glucose Test strip (U) [Mass/Vol] Negative (10/20/22 10:25 AM) Normal Negative [facility] UA Auto SS Hemoglobin Ql (U) Negative (10/20/22 10:25 AM) Normal Negative [facility] UA Auto SS Ketones (U) [Mass/Vol] Negative (10/20/22 10:25 AM) Normal Negative [facility] UA Auto SS Sauget.plasma/Lith ium.RBC (Bld) [Mass ratio] 0-3 /HPF Normal 0-3/HPF [facility] UA Auto SS Nitrite Ql (U) Negative (10/20/22 10:25 AM) Normal Negative [facility] UA Auto SS pH (U) 7.5 *NA* (10/20/22 10:25 AM) Invalid Interpretation Code 5.0 - 9.0 [facility] UA Auto SS Protein (U) [Mass/Vol] Negative (10/20/22 10:25 AM) Normal Negative [facility] UA Auto SS Specific gravity (U) [Rel density] 1.015 *NA* (10/20/22 10:25 AM) Invalid Interpretation Code 1.005 - 1.030 [facility] UA Auto SS UA Spec Desc Clean Catch (10/20/22 10:25 AM) Normal [facility] UA Auto SS Urobilinogen Qn (U) 0.4634676 {Munir'U}/dL Normal 0.0 - 1.0 EU/dL [facility] [facility] UA Auto SS WBC Auto Ql (U) Negative (10/20/22 10:25 AM) Normal Negative [facility] [facility] UA Auto SS WBC LM.HPF (Urine sed) [#/Area] 0-5 /HPF Normal 0-5/HPF [facility] UA Auto SS eGFRon 10-20-2022 GFR/1.73 sq M.predicted among non-blacks MDRD (S/P/Bld) [Vol rate/Area] 87 mL/min/1.73 m2 Normal >=59 [facility] Comment on above: Order Comment: Order added by Discern Expert. Result Comment: Director Foundation alejandra kidney disease could be indicated at eGFR's of less than 60 mL/min/1.73m2. Kidney failure is indicated at less than 15 mL/min/1.73m2. Performed By: #### 2 998775, 50554670, 1693411, 2781043, 7665476 ####[facility] [address] [place] [address] Auto DiffOrdered By: SYSTEM SYSTEM on 10-19-2022 Basophils/100 WBC (Bld) 0.8 % Normal 0.0-2.0 [facility] Comment on above: Order Comment: Order Added by Discern Expert. Performed By: #### 2 721433, 48701088, 2103421, 8442857, 36502548, 8745230, 8776230 ####[facility] [address] [place] [address] Basophils/Leukocyte s Auto (Bld) [Pure # fraction] 0.0 E9/L Normal 0.0-0.2 [facility] Comment on above: Order Comment: Order Added by Discern Expert. Performed By: #### 2 343360, 46376435, 7258007, 5138475, 45020629, 2560691, 5081631 ####[address] [address] Eosinophils/100 WBC (Bld) 3.5 % Normal 0.0-8.0 [facility] Comment on above: Order Comment: Order Added by Discern Expert. Performed By: #### 2 554371, 05727641, 1547229, 0467127, 58285027, 3140122, 8786663 ####[address] [address] Eosinophils/Leukocy stevan Auto (Bld) [Pure # fraction] 0.2 E9/L Normal 0.0-0.5 [facility] Comment on above: Order Comment: Order Added by Mariela Expert. Performed By: #### 2 422222, 70029975, 1231736, 2576299, 61128014, 8441975, 6650868 ####[address] [address] Lymphocytes/100 WBC (Bld) 47.3 % Normal 14.0-50.0 [facility] Comment on above: Order Comment: Order Added by Mariela Expert. Performed By: #### 2 944102, 70134708, 1734390, 9565000, 17366785, 6043484, 8113422 ####[address] [address] Lymphocytes/Leukocy stevan Auto (Bld) [Pure # fraction] 2.1 E9/L Normal 1.0-4.0 [facility] Comment on above: Order Comment: Order Added by Mariela Expert. Performed By: #### 2 673593, 02341381, 9480692, 2561222, 63039553, 0022891, 1602601 ####[address] [address] Monocytes/100 WBC (Bld) 6.6 % Normal 4.0-14.0 [facility] Comment on above: Order Comment: Order Added by Discern Expert. Performed By: #### 2 586767, 75985023, 7957336, 9528745, 98525537, 2271117, 8433918 ####[place] [facility] [address] [place] [address] Monocytes/Leukocyte s Auto (Bld) [Pure # fraction] 0.3 E9/L Normal 0.2-1.0 [facility] Comment on above: Order Comment: Order Added by Discern Expert. Performed By: #### 2 320804, 38130446, 9202305, 5878252, 20375419, 9632657, 6392113 ####[address] [address] Neutrophils/100 WBC (Bld) 41.8 % Normal 36.0-75.0 [facility] Comment on above: Order Comment: Order Added by Discern Expert. Performed By: #### 2 419087, 02216065, 3895546, 2146541, 85177459, 8681335, 7222191 ####[address] [address] Neutrophils/Leukocy stevan Auto (Bld) [Pure # fraction] 1.8 E9/L Low 2.0-7.5 [facility] Comment on above: Order Comment: Order Added by Discern Expert. Performed By: #### 2 395440, 06223947, 9640043, 0787977, 29704459, 8213948, 3108574 ####[place] [facility] [address] [place] [address] BMPOrdered By: SYSTEM SYSTEM on 10-19-2022 Creatinine [Mass/Vol] 0.8 mg/dL Normal 0.5-1.3 [facility] Comment on above: Performed By: #### 2 353239, 05656439, 6386713, 8392302, 80932418, 6597300, 3577132 ####[facility] [address] [place] [address] Urea nitrogen [Mass/Vol] 9 mg/dL Normal 5-21 [facility] Remisol Comment on above: Performed By: #### 2 618333, 29866511, 7551610, 2622743, 72161872, 7419701, 1573404 ####[place] [facility] [address] [place] [address] Anion gap [Moles/Vol] 10 mmol/L Normal 6-16 [facility] Comment on above: Performed By: #### 2 359543, 89394357, 5204277, 2235497, 05708707, 1737385, 3325290 ####[place] [facility] [address] [place] [address] Calcium [Mass/Vol] 9.3 mg/dL Normal 8.9-11.1 [facility] R emisol Comment on above: Performed By: #### 2 830383, 98810451, 4220842, 3994723, 48974588, 5517424, 7375144 ####[place] [facility] [address] [place] [address] Chloride [Moles/Vol] 108 mmol/L Normal 101-111 [facility] Remisol Comment on above: Performed By: #### 2 278189, 31607636, 9591151, 4412324, 67094990, 5282709, 2943393 ####[place] [facility] [address] [place] [address] CO2 [Moles/Vol] 25 mmol/L Normal 21-31 [facility] Jonathan blade Comment on above: Performed By: #### 2 493047, 95074664, 1608778, 4142138, 66671010, 5158978, 4712233 ####[place] [facility] [address] [place] [address] Glucose [Mass/Vol] 83 mg/dL Normal 55-199 [facility] R emisol Comment on above: Result Comment: If t his glucose result represents a fasting glucose, interpretation should refer to the following reference range: 55-99 mg/dL Performed By: #### 2 900263, 78417617, 6037781, 0188460, 40600778, 2228165, 5001938 ####[facility] [address] [place] [address] Potassium [Moles/Vol] 4.1 mmol/L Normal 3.5-5.3 [facility] Remisol Comment on above: Performed By: #### 2 209353, 77491389, 6546790, 6024480, 26204499, 2001434, 9959809 ####[facility] [address] [place] [address] Sodium [Moles/Vol] 139 mmol/L Normal 135-145 [facility] R emisol Comment on above: Performed By: #### 2 546982, 18725255, 0523564, 6645946, 39635763, 9214937, 1918092 ####[facility] [address] [place] [address] BMPon 10-19-2022 Urea nitrogen/Creatinine [Mass ratio] 11 No Units Normal 10-20 [facility] Comment on above: Performed By: #### 2 531632, 16070234, 1580949, 5279140, 81324730, 0871091, 8846955 ####[facility] [address] [place] [address] CBC w/ Auto DiffOrdered By: Kaye Das on 10-19-2022 Erythrocyte distribution width (RBC) [Ratio] 13.7 % Normal 10.9-14.2 [facility] Comment on above: Performed By: #### 2 974318, 57822727, 7668774, 6049503, 71083437, 3851641, 6456668 ####[facility] [address] [place] [address] Hematocrit (Bld) [Volume fraction] 40.7 % Normal 34.0-46.0 [facility] Comment on above: Performed By: #### 2 242033, 76608495, 4184782, 2476076, 29405514, 8173749, 8469893 ####[facility] [address] [place] [address] Hemoglobin (Bld) [Mass/Vol] 14.1 g/dL Normal 12.0-16.0 [facility] Comment on above: Performed By: #### 2 649683, 72821975, 7398004, 3597001, 46833955, 3757644, 2748889 ####[place] [address] [address] MCH (RBC) [Entitic mass] 31.0 pg Normal 27.0-34.0 [facility] Comment on above: Performed By: #### 2 703322, 57893365, 5755092, 6555098, 44726984, 0146964, 2222561 ####[address] [address] MCHC (RBC) [Mass/Vol] 34.5 g/dL Normal 31.4-36.0 [facility] Comment on above: Performed By: #### 2 068669, 68000626, 9701660, 9502561, 78594476, 5675861, 1145341 ####[place] [address] [address] MCV (RBC) [Entitic vol] 89.8 fL Normal 80.0-100.0 [facility] Comment on above: Performed By: #### 2 679541, 38769341, 3443365, [id number], [id number], [id number], [id number] ####[address] [address] Platelet mean volume (Bld) [Entitic vol] 10.3 fL Normal 6.4-10.8 [facility] [employer] Comment on above: Performed By: #### 2 [id number], [id number], [id number], 6531119, [id number], [id number], [id number] ####[address] [address] Platelets (Bld) [#/Vol] 245.0 E9/L Normal 150.0-500.0 FT [employer] Comment on above: Performed By: #### 2 [id number], [id number], 8629403, 4633139, [id number], 9412101, [id number] ####[facility] [address] [place] [address] RBC (Bld) [#/Vol] 4.5 E12/L Normal 4.3-5.9 [facility] [place] [facility] [place] [employer] Comment on above: Performed By: #### 2 [id number], [id number], [id number], [id number], [id number], 8450295, 4685664 ####[facility] [address] [place] [address] WBC corrected for nucl RBC Auto (Bld) [#/Vol] 4.4 E9/L Normal 4.0-11.0 [facility] [place] HemeAutoSS Comment on above: Performed By: #### 2 844305, 37217324, 5215832, 5145318, 56252278, 7766339, 5484469 ####[facility] [address] [place] [address] CHEMISTRYOrdered By: SYSTEM SYSTEM on 10-19-2022 Albumin/Globulin [...] Remisol Consent for Treatmenton Consent for Treatment [id number] C7#1.00CD:127 Normal [facility] Discharge Instructionson Discharge Instructions [id number] 6#1.00CD:127 Normal [facility] ED Clinical Summaryon 2022 ED Clinical Summary Normal Kirsty ahumada [facility] ED Note-Physicianon 10-20-19 ED Note-Physician Normal [facility] Comment on above: Result Comment: Elec tronically Signed By: Earnest Jett DO\.br\Date and Time Signed: 10/19/22 13:41 EDT ED Patient Education Noteon 10-19-2022 ED Patient Education Note Normal [facility] ED Patient Summaryon 023 ED Patient Summary Normal [facility] Hep Func Panelon 10-19-2022 Bilirubin.indirect [Mass or moles/Vol] UTC Abnormal 0.1-0.9 [facility] Comment on above: Result Comment: Resu lt verified by Discern Rule. Performed result UTC (Unable to Calculate) was sent as an Alpha code due the inability to calculate a valid numeric value. Performed By: #### 2 392391, 00033303, 2977530, 4146531, 32175107, 8638420, 2017167 ####[facility] [address] [place] [address] Albumin/Globulin (S) [Mass conc ratio] 1.5 Normal 1.1-2.2 [facility] Comment on above: Performed By: #### 2 050704, 63616156, 8536711, 8375027, 46306058, 6636784, 3641571 ####[facility] [address] [place] [address] ALP [Catalytic activity/Vol] 63 Int._Unit/L Normal 21-98 [facility] Comment on above: Performed By: #### 2 726730, 60632446, 4008914, 3304206, 95994041, 4185865, 2547703 ####[facility] [address] [place] [address] ALT No additional P-5'-P [Catalytic activity/Vol] 30 Int._Unit/L Normal 6-46 [facility] Comment on above: Performed By: #### 2 355815, 43160502, 9773731, 1220238, 32782387, 6677301, 5648656 ####[address] [place] [address] AST [Catalytic activity/Vol] 47 Int._Unit/L High 5-43 [facility] Comment on above: Performed By: #### 2 577474, 71065076, 5189723, 8094507, 62816851, 2539336, 0377085 ####[address] [address] Hep Func PanelOrdered By: ReClaims SYSTEM on 10-19-2022 Albumin [Mass/Vol] 4.4 g/dL Normal 3.3-5.0 [facility] Comment on above: Performed By: #### 2 983718, 43511326, 4860178, 3320184, 20976260, 9361636, 2070859 ####[address] [address] Bilirubin [Mass/Vol] 0.5 mg/dL Normal 0.0-1.1 [facility] Comment on above: Performed By: #### 2 986217, 14176073, 7710481, 4986608, 45442528, 3669952, 8837322 ####[address] [address] Globulin (S) [Mass/Vol] 3.0 g/dL Normal 1.4-4.0 [facility] Comment on above: Performed By: #### 2 787771, 48829003, 2732647, 3916881, 24842173, 7780333, 6561677 ####[address] [address] Protein [Mass/Vol] 7.4 g/dL Normal 6.0-7.8 [facility] R emisol Comment on above: Performed By: #### 2 845044, 77837584, 6679019, 0945041, 17353317, 8048064, 5499948 ####[address] [address] Bilirubin.direct [Mass/Vol] mg/dL Normal 0.1-0.4 [facility] [place] Remisol Comment on above: Performed By: #### 2 201116, 95871569, 6102849, 5041162, 09615079, 6185474, 7817007 ####[address] [address] Lipase LevelOrdered By: SYST EM SYSTEM on 10-19-2022 Lipase [Catalytic activity/Vol] 89 U/L High 13-58 [facility] Comment on above: Performed By: #### 2 726412, 23889679, 7132662, 8882905, 16195014, 5929928, 5348763 ####[address] [address] Prescriptions/Work Noteson 0 10-19-2022 Prescriptions/Work Notes [id number] 7#1.00CD:127 Normal [facility] TSH With T4fr ReflexOrdered By: SYSTEM SYSTEM on 10-19-2022 TSH Qn 0.68 m[IU]/L Normal 0.34-5.60 [facility] [place] Remisol Comment on above: Performed By: #### 2 965382, 16656992, 4418240, 6945943, 26901416, 2840551, 6609270 ####[address] [address] UA With Cult Reflexon 2022 Bilirubin Ql (U) Negative Normal Negative [facility] Comment on above: Performed By: #### 1 5689985 ####[address] [address] Clarity (U) CLEAR Normal Clear [facility] Comment on above: Performed By: #### 1 7949737 ####[address] [address] Color (U) YELLOW Normal Yellow [facility] Comment on above: Performed By: #### 1 3874472 ####[address] [address] Epithelial cells.squamous LM.HPF (Urine sed) [#/Area] 0-2 Normal 0-2 [facility] Comment on above: Performed By: #### 1 4672122 ####[facility] [address] [place] [address] Glucose Test strip (U) [Mass/Vol] Negative Normal Negative [facility] Comment on above: Performed By: #### 1 6930740 ####[facility] [address] [place] [address] Hemoglobin Ql (U) Negative Normal Negative [facility] Comment on above: Performed By: #### 1 9767458 ####[address] [address] Ketones (U) [Mass/Vol] Negative Normal Negative [facility] Comment on above: Performed By: #### 1 9772391 ####[address] [address] Sauget.plasma/Lith ium.RBC (Bld) [Mass ratio] 0-3 Normal 0-3 [facility] Comment on above: Performed By: #### 1 6975490 ####[address] [address] Nitrite Ql (U) Negative Normal Negative [facility] Comment on above: Performed By: #### 1 9666722 ####[address] [address] pH (U) 7.5 [pH] Invalid Interpretation Code 5.0-9.0 [facility] Comment on above: Performed By: #### 1 1405583 ####[address] [address] Protein (U) [Mass/Vol] Negative Normal Negative [facility] Comment on above: Performed By: #### 1 6883897 ####[address] [address] Specific gravity (U) [Rel density] 1.010 Invalid Interpretation Code 1.005-1.030 [facility] Comment on above: Performed By: #### 1 3660155 ####[facility] [address] [place] [address] Type of Urine collection method Clean Catch Normal [facility] Comment on above: Performed By: #### 1 3823665 ####[facility] [address] [place] [address] Urobilinogen Qn (U) 0.2 {Munir'U}/dL Normal 0.0-1.0 [facility] Comment on above: Performed By: #### 1 1348569 ####[facility] [address] [place] [address] WBC Auto Ql (U) Negative Normal Negative [facility] Comment on above: Performed By: #### 1 6688591 ####[facility] [address] [place] [address] WBC LM.HPF (Urine sed) [#/Area] 0-5 Normal 0-5 [facility] Comment on above: Performed By: #### 1 5144368 ####[facility] [address] [place], [place] [address] URINALYSISOrdered By: Kaye brito on 10-19-2022 Bilirubin Ql (U) Negative (10/19/22 9:18 AM) Normal Negative [facility] UA Auto SS Clarity (U) Clear (10/19/22 9:18 AM) Normal Clear [facility] UA Auto SS Color (U) Yellow (10/19/22 9:18 AM) Normal Yellow [facility] UA Auto SS Epithelial cells.squamous LM.HPF (Urine sed) [#/Area] 0-2 /HPF Normal 0-2/HPF [facility] UA Auto SS Glucose Test strip (U) [Mass/Vol] Negative (10/19/22 9:18 AM) Normal Negative [facility] UA Auto SS Hemoglobin Ql (U) Negative (10/19/22 9:18 AM) Normal Negative [facility] UA Auto SS Ketones (U) [Mass/Vol] Negative (10/19/22 9:18 AM) Normal Negative [facility] UA Auto SS Sauget.plasma/Lith ium.RBC (Bld) [Mass ratio] 0-3 /HPF Normal 0-3/HPF [facility] UA Auto SS Nitrite Ql (U) Negative (10/19/22 9:18 AM) Normal Negative [facility] UA Auto SS pH (U) 7.5 *NA* (10/19/22 9:18 AM) Invalid Interpretation Code 5.0 - 9.0 [facility] [place] UA Auto SS Protein (U) [Mass/Vol] Negative (10/19/22 9:18 AM) Normal Negative [facility] UA Auto SS Specific gravity (U) [Rel density] 1.010 *NA* (10/19/22 9:18 AM) Invalid Interpretation Code 1.005 - 1.030 [facility] [place] UA Auto SS UA Spec Desc Clean Catch (10/19/22 9:18 AM) Normal [facility] [place] UA Auto SS Urobilinogen Qn (U) 0.6061639 {Munir'U}/dL Normal 0.0 - 1.0 EU/dL FT UA Auto SS WBC Auto Ql (U) Negative (10/19/22 9:18 AM) Normal Negative [facility] [place] UA Auto SS WBC LM.HPF (Urine sed) [#/Area] 0-5 /HPF Normal 0-5/HPF [facility] [place] UA Auto SS XR Chest 2 Viewson 3 XR Chest 2 Views Normal [facility] eGFROrdered By: SYSTEM SYSTE M on 10-19-2022 GFR/1.73 sq M.predicted among non-blacks MDRD (S/P/Bld) [Vol rate/Area] 100 mL/min/1.73 m2 Normal >=59 [facility] [place] Chem S Comment on above: Order Comment: Order added by Discern Expert. Result Comment: Director Foundation alejandra kidney disease could be indicated at eGFR's of less than 60 mL/min/1.73m2. Kidney failure is indicated at less than 15 mL/min/1.73m2. Performed By: #### 2 527141, 87833762, 4852921, 5363826, 23367269, 2761087, 0926957 ####[facility] [address] [place] [address] ALLIED HEALTHon 10-18-2022 ALLIED HEALTH HNO ID: [id number] Author: Gail Gonzales Tech Service: ? Author [...] October 18, 2022 TIME: 10:07 AM Normal [facility] CBC W Auto Differential pane l (Bld)on 10-18-2022 Basophils (Bld) [#/Vol] 0.03 10*3/uL Normal <0.11 [facility] Comment on above: Order Comment: Speci men Type: BLOOD SPECIMEN Ordering Facility: [facility] Address: [address] [address] Performed By: #### 5 7021-8 #### [facility] CLIA [id number] [address] Basophils/100 WBC (Bld) 0.8 % Normal [facility] Comment on above: Order Comment: Speci men Type: BLOOD SPECIMEN Ordering Facility: [facility] Address: [address] [place] [address] Performed By: #### 5 7021-8 #### [facility] CLIA [id number] [address] Differential cell count method Nom (Bld) Auto Normal [facility] Comment on above: Order Comment: Speci men Type: BLOOD SPECIMEN Ordering Facility: [facility] Address: [address] [place] [address] Performed By: #### 5 7021-8 #### [facility] CLIA [id number] [address] STATES OF [facility] Eosinophils (Bld) [#/Vol] 0.14 10*3/uL Normal <0.46 [facility] Comment on above: Order Comment: Speci men Type: BLOOD SPECIMEN Ordering Facility: [facility] Address: [address] [place] [address] Performed By: #### 5 7021-8 #### [facility] CLIA [id number] [address] Eosinophils/100 WBC (Bld) 3.7 % Normal [facility] Comment on above: Order Comment: Speci men Type: BLOOD SPECIMEN Ordering Facility: [facility] Address: [address] [place] [address] Performed By: #### 5 7021-8 #### [facility] CLIA [id number] [address] [place] Erythrocyte distribution width (RBC) [Ratio] 12.7 % Normal 11.5-15.0 [facility] Comment on above: Order Comment: Speci men Type: BLOOD SPECIMEN Ordering Facility: [facility] Address: [address] [address] Performed By: #### 5 7021-8 #### [facility] CLIA [id number] [address] [place] Hematocrit (Bld) [Volume fraction] 38.5 % Normal 36.0-46.0 [facility] Comment on above: Order Comment: Speci men Type: BLOOD SPECIMEN Ordering Facility: [facility] Address: [address] [address] Performed By: #### 5 7021-8 #### [facility] CLIA [id number] [address] [place] Hemoglobin (Bld) [Mass/Vol] 12.9 g/dL Normal 11.5-15.5 [facility] Comment on above: Order Comment: Speci men Type: BLOOD SPECIMEN Ordering Facility: [facility] Address: [address] [place] [address] Performed By: #### 5 7021-8 #### [facility] CLIA [id number] [address] [place] Immature granulocytes (Bld) [#/Vol] 10*3/uL Normal <0.10 [facility] Comment on above: Order Comment: Speci men Type: BLOOD SPECIMEN Ordering Facility: [facility] Address: [address] [place] [address] Performed By: #### 5 7021-8 #### [facility] CLIA [id number] [address] [place] Immature granulocytes/100 WBC (Bld) 0.3 % Normal [facility] Comment on above: Order Comment: Speci men Type: BLOOD SPECIMEN Ordering Facility: [facility] Address: [address] [place] [address] Performed By: #### 5 7021-8 #### [facility] CLIA [id number] [address] [place] Lymphocytes (Bld) [#/Vol] 1.66 10*3/uL Normal 1.00-4.00 [facility] Comment on above: Order Comment: Speci men Type: BLOOD SPECIMEN Ordering Facility: [facility] Address: [address] [place] [address] Performed By: #### 5 7021-8 #### [facility] CLIA [id number] [address] Lymphocytes/100 WBC (Bld) 43.7 % Normal [facility] Comment on above: Order Comment: Speci men Type: BLOOD SPECIMEN Ordering Facility: [facility] Address: [address] [place] [address] Performed By: #### 5 7021-8 #### [facility] CLIA [id number] [address] STATES OF [facility] MCH (RBC) [Entitic mass] 30.2 pg Normal 26.0-34.0 [facility] Comment on above: Order Comment: Speci men Type: BLOOD SPECIMEN Ordering Facility: [facility] Address: [address] [place] [address] Performed By: #### 5 7021-8 #### [facility] CLIA [id number] [address] [place] [facility] MCHC (RBC) [Mass/Vol] 33.5 g/dL Normal 30.5-36.0 [facility] Comment on above: Order Comment: Speci men Type: BLOOD SPECIMEN Ordering Facility: [facility] Address: [address] [place] [address] Performed By: #### 5 7021-8 #### [facility] CLIA [id number] [address] MCV (RBC) [Entitic vol] 90.2 fL Normal 80.0-100.0 [facility] Comment on above: Order Comment: Speci men Type: BLOOD SPECIMEN Ordering Facility: [facility] Address: [address] [place] [address] Performed By: #### 5 7021-8 #### [facility] CLIA [id number] [address] [place] Monocytes (Bld) [#/Vol] 0.28 10*3/uL Normal <0.87 [facility] Comment on above: Order Comment: Speci men Type: BLOOD SPECIMEN Ordering Facility: [facility] Address: [address] [address] Performed By: #### 5 7021-8 #### [facility] CLIA [id number] [address] [place] Monocytes/100 WBC (Bld) 7.4 % Normal [facility] Comment on above: Order Comment: Speci men Type: BLOOD SPECIMEN Ordering Facility: [facility] Address: [address] [place] [address] Performed By: #### 5 7021-8 #### [facility] CLIA [id number] [address] [place] Neutrophils (Bld) [#/Vol] 1.68 10*3/uL Normal 1.45-7.50 [facility] Comment on above: Order Comment: Speci men Type: BLOOD SPECIMEN Ordering Facility: [facility] Address: [address] [place] [address] Performed By: #### 5 7021-8 #### [facility] CLIA [id number] [address] Neutrophils/100 WBC (Bld) 44.1 % Normal [facility] Comment on above: Order Comment: Speci men Type: BLOOD SPECIMEN Ordering Facility: [facility] Address: [address] [address] Performed By: #### 5 7021-8 #### [facility] CLIA [id number] [address] [place] Nucleated RBC (Bld) [#/Vol] 10*3/uL Normal <0.01 [facility] Comment on above: Order Comment: Speci men Type: BLOOD SPECIMEN Ordering Facility: [facility] Address: [address] [place] [address] Performed By: #### 5 7021-8 #### [facility] CLIA [id number] [address] [place] Nucleated RBC/100 WBC (Bld) [Ratio] 0.0 /100 WBC Normal [facility] Comment on above: Order Comment: Speci men Type: BLOOD SPECIMEN Ordering Facility: [facility] Address: [address] [place] [address] Performed By: #### 5 7021-8 #### [facility] CLIA [id number] [address] [place] Platelet mean volume (Bld) [Entitic vol] 11.1 fL Normal 9.0-12.7 [facility] Comment on above: Order Comment: Speci men Type: BLOOD SPECIMEN Ordering Facility: [facility] Address: [address] [place] [address] Performed By: #### 5 7021-8 #### [facility] CLIA [id number] [address] [place] Platelets (Bld) [#/Vol] 231 10*3/uL Normal 150-400 [facility] Comment on above: Order Comment: Speci men Type: BLOOD SPECIMEN Ordering Facility: [facility] Address: [address] [place] [address] Performed By: #### 5 7021-8 #### [facility] CLIA [id number] [address] [place] RBC (Bld) [#/Vol] 4.27 10*6/uL Normal 3.90-5.20 [facility] Comment on above: Order Comment: Speci men Type: BLOOD SPECIMEN Ordering Facility: [facility] Address: [address] [place] [address] Performed By: #### 5 7021-8 #### [facility] CLIA [id number] [address] [place] WBC (Bld) [#/Vol] 3.80 10*3/uL Normal 3.70-11.00 [facility] Comment on above: Order Comment: Speci men Type: BLOOD SPECIMEN Ordering Facility: [facility] Address: [place] [address] Performed By: #### 5 7021-8 #### [facility] CLIA [id number] 1 [place] [address] [place] ABD/PEL WO IVCONon 2022 CT ABD/PEL WO IVCON * * *Final Report* * * DATE OF EXAM: Oct 18 2022 10:07AM [facility] 0531 - CT ABD/PEL WO [...] or wall thickening.. Lymph Nodes: No lymphadenopathy. Mesentery/peritoneu m: No ascites. Retroperitoneum: No mass. Vasculature: No abdominal aortic or iliac artery aneurysm. Pelvis: No mass or ascites. Bones/Soft Tissues: No acute abnormality. Lower thorax: Unremarkable. Checkout Supervisor (topogram) images: No additional findings. IMPRESSION: Stable findings as detailed above. No acute intra-abdominal or pelvic process seen. Filling Station Attendant: PSCB Transcribe Date/Time: Oct 18 2022 10:14A Dictated by : ADELA FISHER MD This examination was interpreted and the report reviewed and electronically signed by: ADELA FISHER MD on Oct 18 2022 10:21AM EST [id number] Normal [facility] Comprehensive metabolic 2000 panelon 10-18-2022 Albumin [Mass/Vol] 4.3 g/dL Normal 3.9-4.9 [facility] Comment on above: Order Comment: Speci men Type: BLOOD SPECIMEN Ordering Facility: [facility] Address: [address] [place] [address] Performed By: #### 2 4323-8, 0-3 #### [facility] CLIA [id number] [address] [place] ALP [Catalytic activity/Vol] 73 U/L Normal 34-123 [facility] Comment on above: Order Comment: Speci men Type: BLOOD SPECIMEN Ordering Facility: [facility] Address: [address] [address] Performed By: #### 2 4323-8, 0-3 #### [facility] CLIA [id number] [address] [place] ALT With P-5'-P [Catalytic activity/Vol] 24 U/L Normal 7-38 [facility] Comment on above: Order Comment: Speci men Type: BLOOD SPECIMEN Ordering Facility[facility] Address: [address] [address] Performed By: #### 2 4323-8, 3040-3 #### [facility] CLIA [id number] [address] [place] Anion gap [Moles/Vol] 8 mmol/L Low 9-18 [facility] Comment on above: Order Comment: Speci men Type: BLOOD SPECIMEN Ordering Facility: [facility] Address: [address] [address] Performed By: #### 2 4323-8, 3040-3 #### [facility] CLIA [id number] [address] [place] AST With P-5'-P [Catalytic activity/Vol] 36 U/L High 13-35 [facility] Comment on above: Order Comment: Speci men Type: BLOOD SPECIMEN Ordering Facility: [facility] Address: [address] [place] [address] Performed By: #### 2 4323-8, 0-3 #### [facility] CLIA [id number] [address] [place] Bilirubin [Mass/Vol] 0.4 mg/dL Normal 0.2-1.3 [facility] Comment on above: Order Comment: Speci men Type: BLOOD SPECIMEN Ordering Facility: [facility] Address: [address] [place] [address] Performed By: #### 2 4328, 3039-3 #### [facility] CLIA [id number] [address] [place] Calcium [Mass/Vol] 8.9 mg/dL Normal 8.5-10.2 [facility] Comment on above: Order Comment: Speci men Type: BLOOD SPECIMEN Ordering Facility: [facility] Address: [address] [place] [address] Performed By: #### 2 [address], 0-3 #### [facility] CLIA [id number] [address] [place] Chloride [Moles/Vol] 108 mmol/L High 97-105 [facility] Comment on above: Order Comment: Speci men Type: BLOOD SPECIMEN Ordering Facility: [facility] Address: [address] [place] [address] Performed By: #### 2 [address], 3040-3 #### [facility] CLIA [id number] [address] [place] CO2 [Moles/Vol] 26 mmol/L Normal 22-30 [facility] Comment on above: Order Comment: Speci men Type: BLOOD SPECIMEN Ordering Facility[facility] Address: [address] [address] Performed By: #### 2 4323-8, 3040-3 #### [facility] CLIA [id number] [address] OF [facility] Creatinine [Mass/Vol] 0.81 mg/dL Normal 0.58-0.96 [facility] Comment on above: Order Comment: Geraldo men Type: BLOOD SPECIMEN Ordering Facility[facility] Address: [address] [address] Performed By: #### 2 4323-8, 0-3 #### [facility] CLIA [id number] [address] Creatinine and Glomerular filtration rate.predicted panel (S/P/Bld) 98 mL/min/1.73m??? Normal >=60 [facility] Comment on above: Order Comment: Geraldo marrero Type: BLOOD SPECIMEN Ordering Facility: [facility] Address: [address] [place] [address] Result Comment: Jessica mated Glomerular Filtration Rate (eGFR) is calculated [...] Performed By: #### 2 4323-8, 3039-3 #### [facility] CLIA [id number] [address] [place] Glucose [Mass/Vol] 85 mg/dL Normal 74-99 [facility] Comment on above: Order Comment: Geraldo elida Type: BLOOD SPECIMEN Ordering Facility[facility] Address: [address] [address] Result Comment: The [place] [employer] (ADA) provides guidance for cutoff [...] Standards of Medical Care in Diabetes 2016, [place] Diabetes Association. Diabetes Care. 2016.39(Suppl 1). Performed By: #### 2 4323-8, 3040-3 #### [facility] CLIA [id number] 1 [place] [address] [place] Potassium [Moles/Vol] 4.3 mmol/L Normal 3.7-5.1 [facility] Comment on above: Order Comment: Geraldo marrero Type: BLOOD SPECIMEN Ordering Facility: [facility] Address: [address] [place] [address] Performed By: #### 2 43238, 0-3 #### [facility] CLIA [id number] 1 [place] [address] [place] Protein [Mass/Vol] 6.4 g/dL Normal 6.3-8.0 [facility] Comment on above: Order Comment: Geraldo marrero Type: BLOOD SPECIMEN Ordering Facility: [facility] Address: [address] [place] [address] Performed By: #### 2 4323-8, 0-3 #### [facility] CLIA [id number] 1 [place] [address] [place] Sodium [Moles/Vol] 142 mmol/L Normal 136-144 [facility] Comment on above: Order Comment: Lyssai elida Type: BLOOD SPECIMEN Ordering Facility: [facility] Address: [address] [place] [address] Performed By: #### 2 4323-8, 3040-3 #### [facility] CLIA [id number] 1 [place] [address] [place] Urea nitrogen [Mass/Vol] 8 mg/dL Normal 7-21 [facility] Comment on above: Order Comment: Speci men Type: BLOOD SPECIMEN Ordering Facility: [facility] Address: [facility] [place] [address] Performed By: #### 2 4323-8, 3040-3 #### [facility] CLIA [id number] [address] [place] [id number] [facility] ED NOTEon 10-18-2022 ED NOTE HNO ID: [id number] Author: Serafin Curiel RN Service: ? Author Type: Registered Nurse Type: ED Notes Filed: 10/18/2022 10:46 AM Note Text: Provider previously at bedside discussing results/findings. Discharge instructions, follow up recommendations and medications reviewed with patient. Pt advised to return to ED with worsening symptoms. Pt verbalizes understanding. Stable and ambulatory upon d/c Normal [facility] ED NOTE HNO ID: [id number] Author: Alannah Carter RN Service: ? Author Type: Registered Nurse Type: ED Notes Filed: 10/18/2022 7:53 AM Note Text: Bed: 26-ED Expected date: Expected time: Means of arrival: Comments: TRIAGE Normal [facility] ED PROV NOTEon 10-18-2022 ED PROV NOTE HNO ID: [id number] Author: Alverto Barrett MD Service: Emergency Medicine [...] and itchy. Codeine GI Upset Nsaids (Non-Steroid* Contraindication-Me dical Surgical S/p RYGB Review of Systems Constitutional: [...] Neurological: Negative for dizziness, numbness and headaches. Psychiatric/Behavio ral: Negative for behavioral problems. The patient is [...] Musculoskeletal: Gen (more content not included)... Normal [facility] Lipase SerPl-cCncon 10-19-19 23 Lipase [Catalytic activity/Vol] 34 U/L Normal 16-61 [facility] Comment on above: Order Comment: Speci men Type: BLOOD SPECIMEN [facility] Address: [address] [place] [address] Performed By: #### 2 4323-8, 3040-3 #### [facility] CLIA [id number] 1 [place] [address] [place] Urinalysis complete panel (U )on 10-18-2022 Bilirubin Ql (U) Negative Normal Negative [facility] Comment on above: Order Comment: Speci men Type: URINE SPECIMEN Ordering Facility[facility] Address: [address] [place] [address] Performed By: #### 2 4356-8 #### [facility] CLIA [id number] [address] Clarity (Unsp spec) Clear Normal Clear [facility] Comment on above: Order Comment: Speci men Type: URINE SPECIMEN [facility]ing [facility] Address: [address] [place] [address] Performed By: #### 2 4356-8 #### [facility] CLIA [id number] [address] Color (U) Light Yellow Normal yellow [facility] Comment on above: Order Comment: Speci men Type: URINE SPECIMEN Ordering [facility] Address: [address] [place] [address] Performed By: #### 2 4356-8 #### [facility] CLIA [id number] [address] Epithelial cells LM.HPF (Urine sed) [#/Area] Few Normal [facility] Comment on above: Order Comment: Speci men Type: URINE SPECIMEN [facility] Address: [address] [place] [address] Performed By: #### 2 4356-8 #### [facility] CLIA [id number] [address] Glucose Test strip (U) [Mass/Vol] Negative Normal Trace, Negative [facility] Comment on above: Order Comment: Speci men Type: URINE SPECIMEN Ordering [facility] Address: [address] [place] [address] Performed By: #### 2 4356-8 #### [facility] CLIA [id number] [address] Hemoglobin Ql (U) Negative Normal Negative, Trace [facility] Comment on above: Order Comment: Speci men Type: URINE SPECIMEN [facility] Address: [address] [place] [address] Performed By: #### 2 4356-8 #### [facility] CLIA [id number] [address] [facility] Ketones Ql (U) Negative Normal Negative, Trace [facility] Comment on above: Order Comment: Speci men Type: URINE SPECIMEN Ordering [facility] Address: [address] [place] [place] [address] Performed By: #### 2 4356-8 #### [facility] CLIA [id number] [address] Leukocyte esterase Test strip Ql (U) Negative Normal Negative, 25 Patito/uL [facility] Comment on above: Order Comment: Speci men Type: URINE SPECIMEN Ordering [facility] Address: [address] [place] [address] Performed By: #### 2 4356-8 #### [facility] CLIA [id number] [address] Nitrite Ql (U) Negative Normal Negative [facility] Comment on above: Order Comment: Speci men Type: URINE SPECIMEN Ordering [facility] Address: [address] [place] [address] Performed By: #### 2 4356-8 #### [facility] CLIA [id number] [address] pH (U) 7.5 [pH] Normal 5.0-8.0 [facility] Comment on above: Order Comment: Speci men Type: URINE SPECIMEN Ordering [facility] Address: [address] [place] [place] [address] Performed By: #### 2 4356-8 #### [facility] CLIA [id number] [address] Protein (U) [Mass/Vol] Negative Normal Trace, Negative [facility] Comment on above: Order Comment: Speci men Type: URINE SPECIMEN Ordering Facility[facility] Address: [address] [place] [address] Performed By: #### 2 4356-8 #### [facility] CLIA [id number] [address] RBC LM.HPF (Urine sed) [#/Area] 0-3 /HPF Normal 0-3 /HPF [facility] Comment on above: Order Comment: Speci men Type: URINE SPECIMEN Order[facility] Address: [address] [place] [address] Performed By: #### 2 4356-8 #### [facility] CLIA [id number] [address] [place] [address] Specific gravity (U) [Rel density] 1.008 Normal 1.005-1.030 [facility] Comment on above: Order Comment: Speci men Type: URINE SPECIMEN Order[facility] Address: [address] [place] [address] Performed By: #### 2 4356-8 #### [facility] CLIA [id number] [address] [place] [address] Urobilinogen Ql (U) Normal Normal Negative [facility] Comment on above: Order Comment: Speci men Type: URINE SPECIMEN Ordering [facility] Address: [address] [place] [address] Performed By: #### 2 4356-8 #### [facility] CLIA [id number] [address] [place] [address] WBC LM.HPF (Urine sed) [#/Area] 0-5 /HPF Normal 0-5 /HPF [facility] Comment on above: Order Comment: Speci men Type: URINE SPECIMEN Ordering [facility] Address: [address] [place] [address] Performed By: #### 2 4356-8 #### [facility] CLIA [id number] [address] [place] [address] Urinalysis w/ Microon 2022 Bilirubin, SemiQt,Ur Negative Normal NEG [facility] Comment on above: Performed By: #### U AMI #### [facility] [address] [place], [place] [address] Warehouse Person: Baldomero Espinoza MD Blood, Urine Negative Normal NEG [facility] Comment on above: Performed By: #### U AMIC #### [facility] [address] [place], [place] [address] Warehouse Person: Baldomero Espinoza MD Clarity (U) Clear Normal CLEAR [facility] Comment on above: Performed By: #### U AMIC #### [facility] [address] [place], [place] [address] Warehouse Person: Baldomero Espinoza MD Color (U) Yellow Normal YEL [facility] Comment on above: Performed By: #### U AMIC #### [facility] [address] [place], [place] [address] Warehouse Person: Baldomero Espinoza MD Epithelial cells LM Ql (Urine sed) None Normal 0-25 [facility] Comment on above: Performed By: #### U AMIC #### [facility] [address] [place], [place] [address] Warehouse Person: Baldomero Espinoza MD Glucose Ql (U) Negative Normal NEG [facility] Comment on above: Performed By: #### U AMIC #### [facility] [address] [place] [address] [address] [place], [place] [address] Warehouse Person: Baldomero Espinoza MD Ketones Ql (U) Negative Normal NEG [facility] Comment on above: Performed By: #### U AMIC #### [facility] [address] [place], [place] [address] Warehouse Person: Baldomero Espinoza MD Leukocyte esterase Test strip Ql (U) Negative Normal NEG [facility] Comment on above: Performed By: #### U AMIC #### [facility] [address] [place], [place] [address] Warehouse Person: Baldomero Espinoza MD Nitrite,Ur Negative Normal NEG [facility] Comment on above: Performed By: #### U AMIC #### [facility] [address] [place], [place] [address] Warehouse Person: Baldomero Espinoza MD PH,Ur 6.5 Normal 5.0-9.0 [facility] Comment on above: Performed By: #### U AMIC #### [facility] [address] [place] [address] Warehouse Person: Baldomero Espinoza MD Protein Ql (U) Negative Normal NEG [facility] Comment on above: Performed By: #### U AMIC #### [facility] [address] [place], [place] [address] Warehouse Person: Baldomero Espinoza MD Spec. [place],Ur 1.020 Normal 1.010-1.020 [facility] Comment on above: Performed By: #### U AMIC #### [facility] [address] [place] [address] Warehouse Person: Baldomero Espinoza MD Urine RBC's None Normal 0-2 [facility] Comment on above: Performed By: #### U AMIC #### [facility] [address] [place], [place] [address] Warehouse Person: Baldomero Espinoza MD Urine WBC's None Normal 0-5 [facility] Comment on above: Performed By: #### U AMIC #### [facility] [address] [place] [address] Warehouse Person: Baldomero Espinoza MD Urobilinogen,Ur Normal Normal 0.0-1.0 [facility] Comment on above: Performed By: #### U AMIC #### [facility] [address] [place] [address] [address], [place] [address] Warehouse Person: Baldomero Espinoza MD [facility] 10-08-2022 Forms [id number] 26#1.00CD:127 Normal [facility] Ambulatory Visit Summaryon 0 10-07-2022 Ambulatory Visit Summary Normal [address] [place] [address] [place] [address]- \.br\ Medications\.br\ What How Much When Why Instructions\.br\ Unchanged escitalopram (escitalopram 20 mg Tab) 1 Tablets By Mouth Every day\.br\ Unchanged levothyroxine (levothyroxine 100 mcg (0.1 mg) Tab) 1 Tablets By Mouth Every day Thyroid disorder\.br\ Unchanged liothyronine (liothyronine 5 mcg Tab) 5 Microgram By Mouth Every day\.br\ Unchanged meclizine (Antivert 12.5 mg Tab) 1 Tablets By Mouth 3 times a day as needed for for dizziness BMI 29.0-29.9,adult\.br \ Unchanged mirtazapine (mirtazapine 15 mg Tab) 1 Tablets By Mouth Once a day (at bedtime)\.br\ Unchanged ondansetron (ondansetron 4 mg Dis Tab) 1 Tablets By Mouth Every 6 hours\.br\ Unchanged topiramate (Topamax 100 mg Tab) By Mouth 2 times a day\.br\ Allergies\.br\ NSAIDs (Unknown)\.br\ codeine (unknown)\.br\ Problems\.br\ Ongoing - Any problem that you are currently receiving treatment for.\.br\ Arthritis\.br\ Asthma\.br\ BMI 30.0-30.9,adult\.br \ Depression\.br\ Gall stone\.br\ Hyperthyroidism\.br \ Kidney cysts\.br\ Kidney stone\.br\ LUQ pain\.br\ Mixed incontinence urge and stress\.br\ Nausea\.br\ Rash of body\.br\ Renal cyst\.br\ Right flank pain\.br\ Historical - Any problem that you are no longer receiving treatment for.\.br\ Allergic rhinitis\.br\ Anemia\.br\ Hypothyroidism\.br\ Metabolic syndrome\.br\ PCOS- polycystic ovary syndrome\.br\ \.br\ [facility] Family Medicine Office/Clini c Noteon 10-07-2022 Family Medicine Office/Clinic Note Normal [facility] Comment on above: Result Comment: Elec tronically Signed By: Jaquan Paula\.br\Date and Time Signed: 10/07/22 16:37 EDT Operative Reporton 3 Operative Report [id number] 4C#1.00CD:127 Normal [facility] CNOVon 09-18-2022 CNOV Normal [facility] CNPNon 09-04-2022 CNPN Normal [facility] Formson 07-29-2022 Forms [id number] AF#1.00CD:127 Normal [facility] Patient Educationon 07-30-19 Patient Education [facility] Physician Referralon 023 Physician Referral [id number] 202#1.00CD:127 Normal [facility] Urology Office/Clinic Noteon 07-29-2022 Urology Office/Clinic Note Normal [facility] Comment on above: Result Comment: Elec tronically Signed By: Nasim JOHNSON, Rajni Ballesteros\.br\Date and Time Signed: 07/29/22 12:09 EDT\.br\Electronically Co-Signed By: Debbie Peacock\.br\Date and Time Co-Signed: 07/29/22 09:20 EDT CNOVon 07-28-2022 CNOV Normal [facility] Heart and Vascular Office/Cl inic Noteon 07-25-2022 Heart and Vascular Office/Clinic Note Normal [facility] Comment on above: Result Comment: Elec tronically Signed By: Chetna Jack MD Other Comment: Proba ble no-show. CNPNon 07-23-2022 CNPN Normal [facility] Basic metabolic 2000 panelon 07-22-2022 Anion gap [Moles/Vol] 13 mmol/L Normal 9-18 [facility] Comment on above: Order Comment: Speci men Type: BLOOD SPECIMENOrdering Facility: [facility] Address: [address] [place] [address] Performed By: #### 2 4321-2 ####[facility] [id number] [place] [address] [place] Calcium [Mass/Vol] 9.3 mg/dL Normal 8.5-10.2 [facility] Comment on above: Order Comment: Speci men Type: BLOOD SPECIMENOrdering Facility: [facility] Address: [address] [place] [address] Performed By: #### 2 4321-2 ####[facility] [id number] [place] [address] [place] Chloride [Moles/Vol] 105 mmol/L Normal 97-105 [facility] Comment on above: Order Comment: Speci men Type: BLOOD SPECIMENOrdering Facility: [facility] Address: [address] [place] [address] Performed By: #### 2 4321-2 ####[facility] [id number] [place] [address] [place] CO2 [Moles/Vol] 22 mmol/L Normal 22-30 [facility] Comment on above: Order Comment: Speci men Type: BLOOD SPECIMENOrdering Facility: [facility] Address: [address] [place], [place] [address] Performed By: #### 2 4321-2 ####[facility] [id number] [place] [address] [place] Creatinine [Mass/Vol] 0.83 mg/dL Normal 0.58-0.96 [facility] Comment on above: Order Comment: Speci men Type: BLOOD SPECIMENOrdering Facility: [facility] Address: [address] [place], [place] [address] Performed By: #### 2 4321-2 ####[facility] [id number] [place] [address] [place] ESTIMATED GLOMERULAR FILTRATION RATE 96 mL/min/1.73m??? Normal >=60 [facility] Comment on above: Order Comment: Speci men Type: BLOOD SPECIMENOrdering Facility: [facility] Address: [address] [address] Result Comment: Jessica mated Glomerular Filtration Rate (eGFR) is calculated [...] actual GFR. Performed By: #### 2 4321-2 ####[facility] [id number] [place] [address] [place] Glucose [Mass/Vol] 87 mg/dL Normal 74-99 [facility] Comment on above: Order Comment: Geraldo marrero Type: BLOOD SPECIMENOrdering Facility: [facility] Address: [address] [address] Result Comment: The [place] [employer] (ADA) provides guidance for cutoff [...] Standards of Medical Care in Diabetes 2016, [place] [employer]. Diabetes Care. 2016.39(Suppl 1). Performed By: #### 2 4321-2 ####[facility] [id number] [place] [address] [place] Potassium [Moles/Vol] 3.4 mmol/L Low 3.7-5.1 [facility] Comment on above: Order Comment: Geraldo marrero Type: BLOOD SPECIMENOrdering Facility: [facility] Address: [address] [address] Performed By: #### 2 4321-2 ####[facility] [id number] [place] [address] [place] Sodium [Moles/Vol] 140 mmol/L Normal 136-144 [facility] Comment on above: Order Comment: Speci men Type: BLOOD SPECIMENOrdering Facility: [facility] Address: [address] [place] [address] Performed By: #### 2 4321-2 ####[facility]CL[facility] [id number] [place] [address] [place] Urea nitrogen [Mass/Vol] 12 mg/dL Normal 7-21 [facility] Comment on above: Order Comment: Speci men Type: BLOOD SPECIMENOrdering Facility: [facility] Address: [address] [place] [address] Performed By: #### 2 4321-2 ####[facility]IA [id number] [place] [address] [place] CBC W Auto Differential pane l (Bld)on 07-22-2022 Basophils (Bld) [#/Vol] 0.04 10*3/uL Normal <0.11 [facility] Comment on above: Order Comment: Speci men Type: BLOOD SPECIMENOrdering Facility: [facility] Address: [address] [place] [address] Performed By: #### 5 7021-8 ####[facility]CLIA [id number] [address] [place] Basophils/100 WBC (Bld) 0.6 % Normal [facility] Comment on above: Order Comment: Speci men Type: BLOOD SPECIMENOrdering Facility: [facility] Address: [address] [place] [address] Performed By: #### 5 7021-8 ####[facility]IA [id number] [address] [place] Differential cell count method Nom (Bld) Auto Normal [facility] Comment on above: Order Comment: Speci men Type: BLOOD SPECIMENOrdering Facility: [facility] Address: [address] [place], [place] [address] Performed By: #### 5 7021-8 ####[facility]CLIA [id number] [place] [address] [place] Eosinophils (Bld) [#/Vol] 0.04 10*3/uL Normal <0.46 [facility] Comment on above: Order Comment: Speci men Type: BLOOD SPECIMENOrdering Facility: [facility] Address: [address] [place], [place] [address] Performed By: #### 5 7021-8 ####[facility]IA [id number] [place] [address] [place] Eosinophils/100 WBC (Bld) 0.6 % Normal [facility] Comment on above: Order Comment: Speci men Type: BLOOD SPECIMENOrdering Facility: [facility] Address: [address] [place], [place] [address] Performed By: #### 5 7021-8 ####[facility]IA [id number] [place] [address] [place] Erythrocyte distribution width (RBC) [Ratio] 12.4 % Normal 11.5-15.0 [facility] Comment on above: Order Comment: Speci men Type: BLOOD SPECIMENOrdering Facility: [facility] Address: [address] Performed By: #### 5 7021-8 ####[facility]IA [id number] [place] [address] [place] Hematocrit (Bld) [Volume fraction] 39.6 % Normal 36.0-46.0 [facility] Comment on above: Order Comment: Speci men Type: BLOOD SPECIMENOrdering Facility: [facility] Address: [address] [place], [place] [address] Performed By: #### 5 7021-8 ####[facility] LABCLIA [id number] [place] [address] [place] Hemoglobin (Bld) [Mass/Vol] 13.6 g/dL Normal 11.5-15.5 [facility] Comment on above: Order Comment: Speci men Type: BLOOD SPECIMENOrdering Facility: [facility] Address: [address] Performed By: #### 5 7021-8 ####[facility]CLIA [id number] [place] [address] [place] Immature granulocytes (Bld) [#/Vol] 10*3/uL Normal <0.10 [facility] Comment on above: Order Comment: Speci men Type: BLOOD SPECIMENOrdering Facility: [facility] Address: [address] [place], [place] [address] Performed By: #### 5 7021-8 ####[facility] LABIA [id number] [place] [address] [place] Immature granulocytes/100 WBC (Bld) 0.1 % Normal [facility] Comment on above: Order Comment: Speci men Type: BLOOD SPECIMENOrdering Facility: [facility] Address: [address] Performed By: #### 5 7021-8 ####[facility] LABCLIA [id number] [place] [address] [place] Lymphocytes (Bld) [#/Vol] 1.94 10*3/uL Normal 1.00-4.00 [facility] Comment on above: Order Comment: Speci men Type: BLOOD SPECIMENOrdering Facility: [facility] Address: [address] Performed By: #### 5 7021-8 ####[facility] LABIA [id number] [address] [place] [facility] Lymphocytes/100 WBC (Bld) 28.6 % Normal [facility] Comment on above: Order Comment: Speci men Type: BLOOD SPECIMENOrdering Facility: [facility] Address: [address] [place] [address] Performed By: #### 5 7021-8 ####[facility] LABCLIA [id number] [address] [place] [facility] MCH (RBC) [Entitic mass] 31.1 pg Normal 26.0-34.0 [facility] Comment on above: Order Comment: Speci men Type: BLOOD SPECIMENOrdering Facility: [facility] Address: [address] [place] [address] Performed By: #### 5 7021-8 ####[facility] LABIA [id number] [address] [place] MCHC (RBC) [Mass/Vol] 34.3 g/dL Normal 30.5-36.0 [facility] Comment on above: Order Comment: Speci men Type: BLOOD SPECIMENOrdering Facility: [facility] Address: [address] [place], [place] [address] Performed By: #### 5 7021-8 ####[facility] LABIA [id number] 41 [address] [place] MCV (RBC) [Entitic vol] 90.6 fL Normal 80.0-100.0 [facility] Comment on above: Order Comment: Speci men Type: BLOOD SPECIMENOrdering Facility: [facility] Address: [address] [place], [place] [id number] Performed By: #### 5 7021-8 ####[facility] LABCLIA [id number] [place] [address] [place] Monocytes (Bld) [#/Vol] 0.40 10*3/uL Normal <0.87 [facility] Comment on above: Order Comment: Speci men Type: BLOOD SPECIMENOrdering Facility: [facility] Address: [address] Performed By: #### 5 7021-8 ####[facility] LABCLIA [id number] [place] [address] [place] Monocytes/100 WBC (Bld) 5.9 % Normal [facility] Comment on above: Order Comment: Speci men Type: BLOOD SPECIMENOrdering Facility: [facility] Address: [address] Performed By: #### 5 7021-8 ####[facility] LABCLIA [id number] [place] [address] [place] Neutrophils (Bld) [#/Vol] 4.36 10*3/uL Normal 1.45-7.50 [facility] Comment on above: Order Comment: Speci men Type: BLOOD SPECIMENOrdering Facility: [facility] Address: [address] Performed By: #### 5 7021-8 ####[facility] LABCLIA [id number] [place] [address] [place] Neutrophils/100 WBC (Bld) 64.2 % Normal [facility] Comment on above: Order Comment: Speci men Type: BLOOD SPECIMENOrdering Facility: [facility] Address: [address] [place], [place] [id number] Performed By: #### 5 7021-8 ####[facility] LABCLIA [id number] [place] [address] [place] Nucleated RBC (Bld) [#/Vol] 10*3/uL Normal <0.01 [facility] Comment on above: Order Comment: Speci men Type: BLOOD SPECIMENOrdering Facility: [facility] Address: [address] [place], [place] [id number] Performed By: #### 5 7021-8 ####[facility] LABCLIA [id number] [place] [address] [place] Nucleated RBC/100 WBC (Bld) [Ratio] 0.0 /100 WBC Normal [facility] Comment on above: Order Comment: Speci men Type: BLOOD SPECIMENOrdering Facility: [facility] Address: [address] [place] [address] Performed By: #### 5 7021-8 ####[facility] [id number] [place] [address] [place] Platelet mean volume (Bld) [Entitic vol] 11.6 fL Normal 9.0-12.7 [facility] Comment on above: Order Comment: Speci men Type: BLOOD SPECIMENOrdering Facility: [facility] Address: [address] [place] [address] Performed By: #### 5 7021-8 ####[facility] [id number] [place] [address] [place] Platelets (Bld) [#/Vol] 249 10*3/uL Normal 150-400 [facility] Comment on above: Order Comment: Speci men Type: BLOOD SPECIMENOrdering Facility: [facility] Address: [address] [place] [address] Performed By: #### 5 7021-8 ####[facility] [id number] [place] [address] [place] RBC (Bld) [#/Vol] 4.37 10*6/uL Normal 3.90-5.20 [facility] Comment on above: Order Comment: Speci men Type: BLOOD SPECIMENOrdering Facility: [facility] Address: [address] [place], [place] [id number] Performed By: #### 5 7021-8 ####[facility]UN[facility] [id number] [place] [address] [place] WBC (Bld) [#/Vol] 6.79 10*3/uL Normal 3.70-11.00 [facility] Comment on above: Order Comment: Speci men Type: BLOOD SPECIMENOrdering Facility: [facility] Address: [address] [place] [address] Performed By: #### 5 7021-8 ####[facility] LABIA [id number] [address] [place] CONSULTon 07-22-2022 CONSULT Normal [facility] ED NOTEon 07-22-2022 ED NOTE Normal [facility] ED NOTE Normal [facility] ED PROV NOTEon 07-22-2022 ED PROV NOTE Normal [facility] Heteroph Ab Ser Ql LAon Heterophile Ab LA Ql (S) Negative Normal Negative [facility] Comment on above: Order Comment: Speci men Type: BLOOD SPECIMENOrdering Facility: [facility] Address: [address] [place] [address] Result Comment: Infe ctious Mononucleosis rapid test [...] is required. Performed By: #### 5 213-4 ####[facility] LABIA [id number] [address] [place] XR CHEST 1V FRONTAL PORTon 0 07-22-2022 XR CHEST 1V FRONTAL PORT Normal [facility] Ambulatory Visit Summaryon 0 07-20-2022 Ambulatory Visit Summary Normal [facility] Consenton 07-20-2022 Consent [id number]#1.00CD:127 Normal [facility] Family Medicine Office/Clini c Noteon 07-20-2022 Family Medicine Office/Clinic Note Normal [facility] Comment on above: Result Comment: Elec tronically Signed By: Jaquan Paula\.br\Date and Time Signed: 07/20/22 11:58 EDT Physician Orderon 07-20-2022 Physician Order [id number] AA#1.00CD:127 Normal [facility] CNPNon 07-01-2022 CNPN Normal [facility] CNCOon 06-29-2022 CNCO Letter Text Normal [facility] Physician Referralon 023 Physician Referral [id number]#1.00CD:127 Normal [facility] Ambulatory Visit Summaryon 0 06-26-2022 Ambulatory Visit Summary Normal [facility] Family Medicine Office/Clini c Noteon 06-26-2022 Family Medicine Office/Clinic Note Normal [facility] Comment on above: Result Comment: Elec tronically Signed By: Jaquan Paula\.br\Date and Time Signed: 06/26/22 15:04 EDT Comprehensive metabolic 2000 panelon 06-24-2022 Albumin [Mass/Vol] 3.8 g/dL Low 3.9-4.9 [facility] Comment on above: Order Comment: Speci men Type: BLOOD SPECIMENOrdering Facility: [facility] Address: [address] [place] [address] Performed By: #### 2 4323-8, ####[facility] LABCLIA [id number] [place] [address] [place] ALP [Catalytic activity/Vol] 59 U/L Normal 34-123 [facility] Comment on above: Order Comment: Speci men Type: BLOOD SPECIMENOrdering Facility: [facility] Address: [address] [place] [address] Performed By: #### 2 4323-8, ####[facility] LABCLIA [id number] [place] [address] [place] ALT [Catalytic activity/Vol] 21 U/L Normal 7-38 [facility] Comment on above: Order Comment: Speci men Type: BLOOD SPECIMENOrdering Facility: [facility] Address: [address] Performed By: #### 2 4322-09, ####[facility] LABCLIA [id number] [place] [address] [place] Anion gap [Moles/Vol] 9 mmol/L Normal 9-18 [facility] Comment on above: Order Comment: Speci men Type: BLOOD SPECIMENOrdering Facility: [facility] Address: [address] [place] [address] Performed By: #### 2 4322-09, ####[facility] LABCLIA [id number] [place] [address] [place] AST [Catalytic activity/Vol] 35 U/L Normal 13-35 [facility] Comment on above: Order Comment: Speci men Type: BLOOD SPECIMENOrdering Facility: [facility] Address: [address] [place] [address] Result Comment: Resu lts may be falsely increased due to interference from hemolysis. Suggest reorder as clinically indicated. Performed By: #### 2 4322-09, ####[facility] LABCLIA [id number] [place] [address] [place] Bilirubin [Mass/Vol] 0.4 mg/dL Normal 0.2-1.3 [facility] Comment on above: Order Comment: Speci men Type: BLOOD SPECIMENOrdering Facility: [facility] Address: [address] [place], [place] [id number] Performed By: #### 2 4322-09, ####[facility] LABCLIA [id number] [place] [address] [place] Calcium [Mass/Vol] 8.5 mg/dL Normal 8.5-10.2 [facility] Comment on above: Order Comment: Speci men Type: BLOOD SPECIMENOrdering Facility: [facility] Address: [address] Performed By: #### 2 432-8, ####[facility] LABCLIA [id number] [place] [address] [place] Chloride [Moles/Vol] 108 mmol/L High 97-105 [facility] Comment on above: Order Comment: Speci men Type: BLOOD SPECIMENOrdering Facility: [facility] Address: [address] Performed By: #### 2 8, ####[facility] LABCLIA [id number] [place] [address] [place] CO2 [Moles/Vol] 24 mmol/L Normal 22-30 [facility] Comment on above: Order Comment: Speci men Type: BLOOD SPECIMENOrdering Facility: [facility] Address: [address] Performed By: #### 2 8, ####[facility] LABCLIA [id number] [place] [address] [place] Creatinine [Mass/Vol] 0.85 mg/dL Normal 0.58-0.96 [facility] Comment on above: Order Comment: Speci men Type: BLOOD SPECIMENOrdering Facility: [facility] Address: [address] Performed By: #### 2 432-8, ####[facility] LABCLIA [id number] [place] [address] [place] ESTIMATED GLOMERULAR FILTRATION RATE 93 mL/min/1.73m??? Normal >=60 [facility] Comment on above: Order Comment: Speci men Type: BLOOD SPECIMENOrdering Facility: [facility] Address: [address] [place] [address] Result Comment: Jessica mated Glomerular Filtration Rate (eGFR) is calculated [...] actual GFR. Performed By: #### 2 4323-8, ####[facility] LABCLIA [id number] [place] [address] [place] Glucose [Mass/Vol] 92 mg/dL Normal 74-99 [facility] Comment on above: Order Comment: Specmichael men Type: BLOOD SPECIMENOrdering Facility: [facility] Address: [address] [place] [address] Result Comment: The [place] [employer] (ADA) provides guidance for cutoff [...] Standards of Medical Care in Diabetes 2016, [place] [employer]. Diabetes Care. 2016.39(Suppl 1). Performed By: #### 2 4323-8, ####[facility] LABCLIA [id number] [place] [id number] [place] Potassium [Moles/Vol] 4.0 mmol/L Normal 3.7-5.1 [facility] Comment on above: Order Comment: Geraldo marrero Type: BLOOD SPECIMENOrdering Facility: [facility] Address: [address] [place] [address] Performed By: #### 2 4323-8, ####[facility] LABCLIA [id number] [place] [address] [place] Protein [Mass/Vol] 5.8 g/dL Low 6.3-8.0 [facility] Comment on above: Order Comment: Speci men Type: BLOOD SPECIMENOrdering Facility: [facility] Address: [address] [place] [address] Performed By: #### 2 4323-8, ####[facility] LABCLIA [id number] [place] [address] [place] Sodium [Moles/Vol] 141 mmol/L Normal 136-144 [facility] Comment on above: Order Comment: Speci men Type: BLOOD SPECIMENOrdering Facility: [facility] Address: [address] [place] [address] Performed By: #### 2 4323-8, ####[facility] LABCLIA [id number] [place] [address] [place] Urea nitrogen [Mass/Vol] 9 mg/dL Normal 7-21 [facility] Comment on above: Order Comment: Speci men Type: BLOOD SPECIMENOrdering Facility: [facility] Address: [address] [place] [address] Performed By: #### 2 4323-8, 20470-8 ####[facility] LABCLIA [id number] [place] [address] [place] Magnesium SerPl-ncon 06-24 Magnesium [Mass/Vol] 1.9 mg/dL Normal 1.7-2.3 [facility] Comment on above: Order Comment: Speci men Type: BLOOD SPECIMENOrdering Facility: [facility] Address: [address] [place] [address] Performed By: #### 2 4323-8, 17109-0 ####[facility] LABCLIA [id number] [place] [address] [place] ANES POSTPROC EVALon 023 ANES POSTPROC EVAL Normal [facility] ANES PRE-OPon 06-23-2022 ANES PRE-OP Normal [facility] CASE MANAGEMon 06-23-2022 CASE MANAGEM Normal [facility] CNDSon 06-23-2022 CNDS Normal [facility] NURSING PROGon 06-23-2022 NURSING PROG Normal [facility] Upper GI endoscopyon 023 Upper GI endoscopy Normal [facility] Basic metabolic 2000 panelon 06-22-2022 Anion gap [Moles/Vol] 12 mmol/L Normal 9-18 [facility] Comment on above: Order Comment: Speci men Type: BLOOD SPECIMENOrdering Facility: [facility] Address: [address] [place], [place] [id number] Performed By: #### 2 4320-03, 1987-06 ####[facility] LABCLIA [id number] [place] [address] [place] Calcium [Mass/Vol] 9.1 mg/dL Normal 8.5-10.2 [facility] Comment on above: Order Comment: Speci men Type: BLOOD SPECIMENOrdering Facility: [facility] Address: [address] [place], [place] [id number] Performed By: #### 2 4320-03, 1987-06 ####[facility] LABCLIA [id number] [place] [address] [place] Chloride [Moles/Vol] 106 mmol/L High 97-105 [facility] Comment on above: Order Comment: Speci men Type: BLOOD SPECIMENOrdering Facility: [facility] Address: [address] [place], [place] [address] Performed By: #### 2 4320-03, 1987-06 ####[facility] LABCLIA [id number] [place] [address] [place] CO2 [Moles/Vol] 20 mmol/L Low 22-30 [facility] Comment on above: Order Comment: Speci men Type: BLOOD SPECIMENOrdering Facility: [facility] Address: [address] [place] [address] Performed By: #### 2 4320-03, 1987-06 ####[facility] LABCLIA [id number] [place] [address] [place] Creatinine [Mass/Vol] 0.87 mg/dL Normal 0.58-0.96 [facility] Comment on above: Order Comment: Speci men Type: BLOOD SPECIMENOrdering Facility: [facility] Address: [address] [place] [address] Performed By: #### 2 4320-03, 1987-06 ####[facility] LABIA [id number] [place] [address] [place] ESTIMATED GLOMERULAR FILTRATION RATE 90 mL/min/1.73m??? Normal >=60 [facility] Comment on above: Order Comment: Speci men Type: BLOOD SPECIMENOrdering Facility: [facility] Address: [address] [place] [address] Result Comment: Jessica mated Glomerular Filtration Rate (eGFR) is calculated [...] reflect actual GFR. Performed By: #### 2 4320-03, 1987-06 ####[facility] LABIA [id number] [place] [address] [place] Glucose [Mass/Vol] 76 mg/dL Normal 74-99 [facility] Comment on above: Order Comment: Speci men Type: BLOOD SPECIMENOrdering Facility: [facility] Address: [address] [place] [address] Result Comment: The [place] [employer] (ADA) provides guidance for cutoff [...] Standards of Medical Care in Diabetes 2016, [place] [employer]. Diabetes Care. 2016.39(Suppl 1). Performed By: #### 2 4320-03, 1987-06 ####[facility] LABCLIA [id number] [place] [address] [place] Potassium [Moles/Vol] 3.8 mmol/L Normal 3.7-5.1 [facility] Comment on above: Order Comment: Speci men Type: BLOOD SPECIMENOrdering Facility: [facility] Address: [address] [place], [place] [id number] Performed By: #### 2 1987-06 ####[facility] LABCLIA [id number] [place] [address] [place] Sodium [Moles/Vol] 138 mmol/L Normal 136-144 [facility] Comment on above: Order Comment: Speci men Type: BLOOD SPECIMENOrdering Facility: [facility] Address: [address] [place] [address] Performed By: #### 2 1987-06 ####[facility] LABCLIA [id number] [place] [address] [place] Urea nitrogen [Mass/Vol] 10 mg/dL Normal 7-21 [facility] Comment on above: Order Comment: Speci men Type: BLOOD SPECIMENOrdering Facility: [facility] Address: [address] [place] [address] Performed By: #### 2 1987-06 ####[facility] LABCLIA [id number] [address] [place] CBC panel Auto (Bld)on 06-22 Erythrocyte distribution width (RBC) [Ratio] 12.8 % Normal 11.5-15.0 [facility] Comment on above: Order Comment: Speci men Type: BLOOD SPECIMENOrdering Facility: [facility] Address: [address] [place] [address] Performed By: #### 5 8410-2 ####[facility] [id number] [address] [place] Hematocrit (Bld) [Volume fraction] 38.4 % Normal 36.0-46.0 [facility] Comment on above: Order Comment: Speci men Type: BLOOD SPECIMENOrdering Facility: [facility] Address: [address] [place] [address] Performed By: #### 5 8410-2 ####[facility] [id number] [address] [place] Hemoglobin (Bld) [Mass/Vol] 13.4 g/dL Normal 11.5-15.5 [facility] Comment on above: Order Comment: Speci men Type: BLOOD SPECIMENOrdering Facility: [facility] Address: [address] [place] [address] Performed By: #### 5 8410-2 ####[facility] [id number] [address] [place] MCH (RBC) [Entitic mass] 31.2 pg Normal 26.0-34.0 [facility] Comment on above: Order Comment: Speci men Type: BLOOD SPECIMENOrdering Facility: [facility] Address: [address] [place] [address] Performed By: #### 5 8410-2 ####[facility] LABIA [id number] [address] [place] MCHC (RBC) [Mass/Vol] 34.9 g/dL Normal 30.5-36.0 [facility] Comment on above: Order Comment: Speci men Type: BLOOD SPECIMENOrdering Facility: [facility] Address: [address] [place], [place] [id number] Performed By: #### 5 8410-2 ####[facility] LABIA [id number] [place] [address] [place] MCV (RBC) [Entitic vol] 89.3 fL Normal 80.0-100.0 [facility] Comment on above: Order Comment: Speci men Type: BLOOD SPECIMENOrdering Facility: [facility] Address: [address] [place], [place] [id number] Performed By: #### 5 8410-2 ####[facility] LABIA [id number] [place] [address] [place] Nucleated RBC (Bld) [#/Vol] 10*3/uL Normal <0.01 [facility] Comment on above: Order Comment: Speci men Type: BLOOD SPECIMENOrdering Facility: [facility] Address: [address] [place], [place] [address] Performed By: #### 5 8410-2 ####[facility] LABIA [id number] [place] [address] [place] Platelet mean volume (Bld) [Entitic vol] 11.7 fL Normal 9.0-12.7 [facility] Comment on above: Order Comment: Speci men Type: BLOOD SPECIMENOrdering Facility: [facility] Address: [address] [place], [place] [address] Performed By: #### 5 8410-2 ####[facility] LABIA [id number] [place] [address] [place] Platelets (Bld) [#/Vol] 217 10*3/uL Normal 150-400 [facility] Comment on above: Order Comment: Speci men Type: BLOOD SPECIMENOrdering Facility: [facility] Address: [address] Performed By: #### 5 8410-2 ####[facility] LABIA [id number] [place] [address] [place] RBC (Bld) [#/Vol] 4.30 10*6/uL Normal 3.90-5.20 [facility] Comment on above: Order Comment: Speci men Type: BLOOD SPECIMENOrdering Facility: [facility] Address: [address] [place], [place] [id number] Performed By: #### 5 8410-2 ####[facility] [id number] [place] [address] [place] WBC (Bld) [#/Vol] 4.20 10*3/uL Normal 3.70-11.00 [facility] Comment on above: Order Comment: Speci men Type: BLOOD SPECIMENOrdering Facility: [facility] Address: [address] [place] [address] Performed By: #### 5 8410-2 ####[facility] [id number] [place] [address] [place] CRP SerPl-mCncon 06-22-2022 CRP [Mass/Vol] mg/L Normal <0.9 [facility] Comment on above: Order Comment: Speci men Type: BLOOD SPECIMENOrdering Facility: [facility] Address: [address] [place], [place] [id number] Performed By: #### 2 4321-2, 1987- ####[facility] LABIA [id number] [place] [address] [place] NURSING PROGon 06-22-2022 NURSING PROG Normal [facility] NUTRITIONon 06-22-2022 NUTRITION Normal [facility] XR ABDOMEN 1V SUPINEon 06-22 XR ABDOMEN 1V SUPINE Normal [facility] Basic metabolic 2000 panelon 06-21-2022 Anion gap [Moles/Vol] 11 mmol/L Normal 9-18 [facility] Comment on above: Order Comment: Speci men Type: BLOOD SPECIMENOrdering Facility: [facility] Address: [address] [place], [place] [id number] Performed By: #### 2 4321-2 ####[facility] LABCLIA [id number] [place] [address] [place] Calcium [Mass/Vol] 8.9 mg/dL Normal 8.5-10.2 [facility] Comment on above: Order Comment: Speci men Type: BLOOD SPECIMENOrdering Facility: [facility] Address: [address] [place], [place] [address] Performed By: #### 2 4321-2 ####[facility] LABCLIA [id number] [place] [address] [place] Chloride [Moles/Vol] 107 mmol/L High 97-105 [facility] Comment on above: Order Comment: Speci men Type: BLOOD SPECIMENOrdering Facility: [facility] Address: [address] [place], [place] [address] Performed By: #### 2 4321-2 ####[facility] LABCLIA [id number] [place] [address] [place] CO2 [Moles/Vol] 22 mmol/L Normal 22-30 [facility] Comment on above: Order Comment: Speci men Type: BLOOD SPECIMENOrdering Facility: [facility] Address: [address] [place], [place] [address] Performed By: #### 2 4321-2 ####[facility] LABCLIA [id number] [place] [address] [place] Creatinine [Mass/Vol] 0.93 mg/dL Normal 0.58-0.96 [facility] Comment on above: Order Comment: Speci men Type: BLOOD SPECIMENOrdering Facility: [facility] Address: [address] [place], [place] [id number] Performed By: #### 2 4321-2 ####[facility] LABCLIA [id number] [address] OF [facility] ESTIMATED GLOMERULAR FILTRATION RATE 83 mL/min/1.73m??? Normal >=60 [facility] Comment on above: Order Comment: Speci men Type: BLOOD SPECIMENOrdering Facility: [facility] Address: [address] [address] Result Comment: Jessica mated Glomerular Filtration Rate (eGFR) is calculated [...] actual GFR. Performed By: #### 2 4321-2 ####[facility] [id number] [address] [place] Glucose [Mass/Vol] 75 mg/dL Normal 74-99 [facility] Comment on above: Order Comment: Geraldo marrero Type: BLOOD SPECIMENOrdering Facility: [facility] Address: [address] [place] [address] Result Comment: The [place] Diabetes [employer] (ADA) provides guidance for cutoff [...] Standards of Medical Care in Diabetes 2016, [place] [employer]. Diabetes Care. 2016.39(Suppl 1). Performed By: #### 2 4321-2 ####[facility] LABCLIA [id number] [place] [address] [place] Potassium [Moles/Vol] 3.9 mmol/L Normal 3.7-5.1 [facility] Comment on above: Order Comment: Speci men Type: BLOOD SPECIMENOrdering Facility: [facility] Address: [address] [address] Performed By: #### 2 4321-2 ####[facility] LABCLIA [id number] [place] [address] [place] Sodium [Moles/Vol] 140 mmol/L Normal 136-144 [facility] Comment on above: Order Comment: Speci men Type: BLOOD SPECIMENOrdering Facility: [facility] Address: [address] [place] [address] Performed By: #### 2 4321-2 ####[facility] LABCLIA [id number] [place] [address] [place] Urea nitrogen [Mass/Vol] 10 mg/dL Normal 7-21 [facility] Comment on above: Order Comment: Speci men Type: BLOOD SPECIMENOrdering Facility: [facility] Address: [address] [address] Performed By: #### 2 4321-2 ####[facility] LABCLIA [id number] [place] [address] [place] CBC panel Auto (Bld)on 06-21 Erythrocyte distribution width (RBC) [Ratio] 13.0 % Normal 11.5-15.0 [facility] Comment on above: Order Comment: Speci men Type: BLOOD SPECIMENOrdering Facility: [facility] Address: [address] [place], [place] [id number] Performed By: #### 5 8410-2 ####[facility] LABCLIA [id number] [place] [address] [place] Hematocrit (Bld) [Volume fraction] 37.5 % Normal 36.0-46.0 [facility] Comment on above: Order Comment: Speci men Type: BLOOD SPECIMENOrdering Facility: [facility] Address: [address] [address] Performed By: #### 5 8410-2 ####[facility] LABCLIA [id number] [place] [address] [place] Hemoglobin (Bld) [Mass/Vol] 12.8 g/dL Normal 11.5-15.5 [facility] Comment on above: Order Comment: Speci men Type: BLOOD SPECIMENOrdering Facility: [facility] Address: [address] [address] Performed By: #### 5 8410-2 ####[facility] LABCLIA [id number] [address] [place] MCH (RBC) [Entitic mass] 31.1 pg Normal 26.0-34.0 [facility] Comment on above: Order Comment: Speci men Type: BLOOD SPECIMENOrdering Facility: [facility] Address: [address] [place], [place] [id number] Performed By: #### 5 8410-2 ####[facility] LABIA [id number] [address] [place] MCHC (RBC) [Mass/Vol] 34.1 g/dL Normal 30.5-36.0 [facility] Comment on above: Order Comment: Speci men Type: BLOOD SPECIMENOrdering Facility: [facility] Address: [address] Performed By: #### 5 8410-2 ####[facility] LABIA [id number] [place] [address] [place] MCV (RBC) [Entitic vol] 91.0 fL Normal 80.0-100.0 [facility] Comment on above: Order Comment: Speci men Type: BLOOD SPECIMENOrdering Facility: [facility] Address: [address] [place], [place] [id number] Performed By: #### 5 8410-2 ####[facility] LABCLIA [id number] [place] [address] [place] Nucleated RBC (Bld) [#/Vol] 10*3/uL Normal <0.01 [facility] Comment on above: Order Comment: Speci men Type: BLOOD SPECIMENOrdering Facility: [facility] Address: [address] [place], [place] [id number] Performed By: #### 5 8410-2 ####[facility] LABIA [id number] [place] [address] [place] Platelet mean volume (Bld) [Entitic vol] 11.8 fL Normal 9.0-12.7 [facility] Comment on above: Order Comment: Speci men Type: BLOOD SPECIMENOrdering Facility: [facility] Address: [address] [place], [place] [address] Performed By: #### 5 8410-2 ####[facility] LABIA [id number] [place] [address] [place] Platelets (Bld) [#/Vol] 212 10*3/uL Normal 150-400 [facility] Comment on above: Order Comment: Speci men Type: BLOOD SPECIMENOrdering Facility: [facility] Address: [address] [place] [address] Performed By: #### 5 8410-2 ####[facility] LABIA [id number] [place] [address] [place] RBC (Bld) [#/Vol] 4.12 10*6/uL Normal 3.90-5.20 [facility] Comment on above: Order Comment: Speci men Type: BLOOD SPECIMENOrdering Facility: [facility] Address: [address] [place], [place] [address] Performed By: #### 5 8410-2 ####[facility] LABIA [id number] [place] [address] [place] WBC (Bld) [#/Vol] 2.90 10*3/uL Low 3.70-11.00 [facility] Comment on above: Order Comment: Speci men Type: BLOOD SPECIMENOrdering Facility: [facility] Address: [address] [place] [address] Performed By: #### 5 8410-2 ####[facility] LABCLIA [id number] [place] [address] [place] CASE MGT INIT ASSESon 2022 CASE MGT INIT ASSES Normal [facility] CBC W Auto Differential pane l (Bld)on 06-20-2022 Basophils (Bld) [#/Vol] 0.03 10*3/uL Normal <0.11 [facility] Comment on above: Order Comment: Speci men Type: BLOOD SPECIMENOrdering Facility: [facility] Address: [address] [place] [address] Performed By: #### 5 7021-8 ####[facility] LABCLIA [id number] [place] [address] [place] Basophils/100 WBC (Bld) 0.7 % Normal [facility] Comment on above: Order Comment: Speci men Type: BLOOD SPECIMENOrdering Facility: [facility] Address: [address] [place] [address] Performed By: #### 5 7021-8 ####[facility] LABCLIA [id number] [place] [address] [place] Differential cell count method Nom (Bld) Auto Normal [facility] Comment on above: Order Comment: Speci men Type: BLOOD SPECIMENOrdering Facility: [facility] Address: [address] [place] [address] Performed By: #### 5 7021-8 ####[facility] LABCLIA [id number] [place] [address] [place] Eosinophils (Bld) [#/Vol] 0.13 10*3/uL Normal <0.46 [facility] Comment on above: Order Comment: Speci men Type: BLOOD SPECIMENOrdering Facility: [facility] Address: [address] [place] [address] Performed By: #### 5 7021-8 ####[facility] LABCLIA [id number] [place] [address] [place] Eosinophils/100 WBC (Bld) 2.9 % Normal [facility] Comment on above: Order Comment: Speci men Type: BLOOD SPECIMENOrdering Facility: [facility] Address: [address] [place] [address] Performed By: #### 5 7021-8 ####[facility] LABCLIA [id number] [place] [address] [place] Erythrocyte distribution width (RBC) [Ratio] 13.0 % Normal 11.5-15.0 [facility] Comment on above: Order Comment: Speci men Type: BLOOD SPECIMENOrdering Facility: [facility] Address: [address] [place], [place] [id number] Performed By: #### 5 7021-8 ####[facility] LABCLIA [id number] [address] [place] Hematocrit (Bld) [Volume fraction] 41.3 % Normal 36.0-46.0 [facility] Comment on above: Order Comment: Speci men Type: BLOOD SPECIMENOrdering Facility: [facility] Address: [address] [place], [place] [address] Performed By: #### 5 7021-8 ####[facility] LABCLIA [id number] [place] [address] [place] Hemoglobin (Bld) [Mass/Vol] 13.8 g/dL Normal 11.5-15.5 [facility] Comment on above: Order Comment: Speci men Type: BLOOD SPECIMENOrdering Facility: [facility] Address: [address] Performed By: #### 5 7021-8 ####[facility] LABCLIA [id number] [place] [address] [place] Immature granulocytes (Bld) [#/Vol] 10*3/uL Normal <0.10 [facility] Comment on above: Order Comment: Speci men Type: BLOOD SPECIMENOrdering Facility: [facility] Address: [address] Performed By: #### 5 7021-8 ####[facility] LABCLIA [id number] [place] [address] [place] Immature granulocytes/100 WBC (Bld) 0.0 % Normal [facility] Comment on above: Order Comment: Speci men Type: BLOOD SPECIMENOrdering Facility: [facility] Address: [address] [place], [place] [id number] Performed By: #### 5 7021-8 ####[facility] LABCLIA [id number] [place] [address] [place] Lymphocytes (Bld) [#/Vol] 1.62 10*3/uL Normal 1.00-4.00 [facility] Comment on above: Order Comment: Speci men Type: BLOOD SPECIMENOrdering Facility: [facility] Address: [address] [place], [place] [id number] Performed By: #### 5 7021-8 ####[facility] LABCLIA [id number] [place] [address] [place] Lymphocytes/100 WBC (Bld) 36.5 % Normal [facility] Comment on above: Order Comment: Speci men Type: BLOOD SPECIMENOrdering Facility: [facility] Address: [address] [place], [place] [id number] Performed By: #### 5 7021-8 ####[facility] LABCLIA [id number] [address] MCH (RBC) [Entitic mass] 30.8 pg Normal 26.0-34.0 [facility] Comment on above: Order Comment: Speci men Type: BLOOD SPECIMENOrdering Facility: [facility] Address: [address] [place] [address] Performed By: #### 5 7021-8 ####[facility] LABCLIA [id number] [address] MCHC (RBC) [Mass/Vol] 33.4 g/dL Normal 30.5-36.0 [facility] Comment on above: Order Comment: Speci men Type: BLOOD SPECIMENOrdering Facility: [facility] Address: [address] [place] [address] Performed By: #### 5 7021-8 ####[facility] LABCLIA [id number] [address] OF [facility] MCV (RBC) [Entitic vol] 92.2 fL Normal 80.0-100.0 [facility] Comment on above: Order Comment: Speci men Type: BLOOD SPECIMENOrdering Facility: [facility] Address: [address] [place] [address] Performed By: #### 5 7021-8 ####[facility] LABIA [id number] [place] [address] [place] Monocytes (Bld) [#/Vol] 0.29 10*3/uL Normal <0.87 [facility] Comment on above: Order Comment: Speci men Type: BLOOD SPECIMENOrdering Facility: [facility] Address: [address] [place], [place] [id number] Performed By: #### 5 7021-8 ####[facility] LABCLIA [id number] [address] [place] Monocytes/100 WBC (Bld) 6.5 % Normal [facility] Comment on above: Order Comment: Speci men Type: BLOOD SPECIMENOrdering Facility: [facility] Address: [address] Performed By: #### 5 7021-8 ####[facility] LABCLIA [id number] [place] [address] [place] Neutrophils (Bld) [#/Vol] 2.37 10*3/uL Normal 1.45-7.50 [facility] Comment on above: Order Comment: Speci men Type: BLOOD SPECIMENOrdering Facility: [facility] Address: [address] [address] Performed By: #### 5 7021-8 ####[facility] LABCLIA [id number] [place] [address] [place] Neutrophils/100 WBC (Bld) 53.4 % Normal [facility] Comment on above: Order Comment: Speci men Type: BLOOD SPECIMENOrdering Facility: [facility] Address: [address] Performed By: #### 5 7021-8 ####[facility] LABCLIA [id number] [place] [address] [place] Nucleated RBC (Bld) [#/Vol] 10*3/uL Normal <0.01 [facility] Comment on above: Order Comment: Speci men Type: BLOOD SPECIMENOrdering Facility: [facility] Address: [address] Performed By: #### 5 7021-8 ####[facility] LABCLIA [id number] [place] [address] [place] Nucleated RBC/100 WBC (Bld) [Ratio] 0.0 /100 WBC Normal [facility] Comment on above: Order Comment: Speci men Type: BLOOD SPECIMENOrdering Facility: [facility] Address: [address] Performed By: #### 5 7021-8 ####[facility] LABCLIA [id number] [place] [address] [place] Platelet mean volume (Bld) [Entitic vol] 11.4 fL Normal 9.0-12.7 [facility] Comment on above: Order Comment: Speci men Type: BLOOD SPECIMENOrdering Facility: [facility] Address: [address] [place], [place] [id number] Performed By: #### 5 7021-8 ####[facility] LABCLIA [id number] [place] [address] [place] Platelets (Bld) [#/Vol] 252 10*3/uL Normal 150-400 [facility] Comment on above: Order Comment: Speci men Type: BLOOD SPECIMENOrdering Facility: [facility] Address: [address] [place], [place] [address] Performed By: #### 5 7021-8 ####[facility] LABIA [id number] [place] [address] [place] RBC (Bld) [#/Vol] 4.48 10*6/uL Normal 3.90-5.20 [facility] Comment on above: Order Comment: Speci men Type: BLOOD SPECIMENOrdering Facility: [facility] Address: [address] [place], [place] [id number] Performed By: #### 5 7021-8 ####[facility] LABIA [id number] [place] [address] [place] WBC (Bld) [#/Vol] 4.44 10*3/uL Normal 3.70-11.00 [facility] Comment on above: Order Comment: Speci men Type: BLOOD SPECIMENOrdering Facility: [facility] Address: [address] [place], [place] [id number] Performed By: #### 5 7021-8 ####[facility] LABIA [id number] [place] [id number] [place] [address] CRP SerPl-mCncon 06-20-2022 CRP [Mass/Vol] mg/L Normal <0.9 [facility] Comment on above: Order Comment: Speci men Type: BLOOD SPECIMENOrdering Facility: [facility] Address: [address] [address] Performed By: #### 2 4323-8, 93497-1, 3039-04, 1987-06, ####[facility] LABCLIA [id number] [place] [address] [place] CT ABD/PEL W IVCONon 023 CT ABD/PEL W IVCON Normal [facility] Comprehensive metabolic 2000 panelon 06-20-2022 Albumin [Mass/Vol] 4.5 g/dL Normal 3.9-4.9 [facility] Comment on above: Order Comment: Speci men Type: BLOOD SPECIMENOrdering Facility: [facility] Address: [address] [place] [address] Performed By: #### 2 4323-8, 29651-0, 3039-04, 1987-06, ####[facility] LABIA [id number] [address] [place] ALP [Catalytic activity/Vol] 72 U/L Normal 34-123 [facility] Comment on above: Order Comment: Speci men Type: BLOOD SPECIMENOrdering Facility: [facility] Address: [address] [place] [address] Performed By: #### 2 4323-8, 02571-3, 3039-04, 1987-06, ####[facility] LABIA [id number] [address] STATES OF [facility] ALT [Catalytic activity/Vol] 25 U/L Normal 7-38 [facility] Comment on above: Order Comment: Speci men Type: BLOOD SPECIMENOrdering Facility: [facility] Address: [address] [place], [place] [id number] Performed By: #### 2 4323-8, 43314-7, 3039-04, 1987-06, ####[facility] LABCLIA [id number] [address] [place] [id number] [place] Anion gap [Moles/Vol] 11 mmol/L Normal 9-18 [facility] Comment on above: Order Comment: Speci men Type: BLOOD SPECIMENOrdering Facility: [facility] Address: [address] [place] [address] Performed By: #### 2 4323-8, 37013-9, 3039-04, 1987-06, ####[facility] LABIA [id number] [place] [address] [place] AST [Catalytic activity/Vol] 38 U/L High 13-35 [facility] Comment on above: Order Comment: Speci men Type: BLOOD SPECIMENOrdering Facility: [facility] Address: [address] [place] [address] Performed By: #### 2 4323-8, 00384-9, 3039-04, 1987-06, ####[facility] LABIA [id number] [place] [address] [place] Bilirubin [Mass/Vol] 0.4 mg/dL Normal 0.2-1.3 [facility] Comment on above: Order Comment: Speci men Type: BLOOD SPECIMENOrdering Facility: [facility] Address: [address] [place], [place] [id number] Performed By: #### 2 4323-8, 83306-2, 3039-04, 1987-06, ####[facility] LABIA [id number] [address] [id number] [place] Calcium [Mass/Vol] 9.2 mg/dL Normal 8.5-10.2 [facility] Comment on above: Order Comment: Speci men Type: BLOOD SPECIMENOrdering Facility: [facility] Address: [address] [id number] Performed By: #### 2 4323-8, 21337-7, 3039-04, 1987-06, ####[facility] LABCLIA [id number] [place] [address] [place] Chloride [Moles/Vol] 107 mmol/L High 97-105 [facility] Comment on above: Order Comment: Speci men Type: BLOOD SPECIMENOrdering Facility: [facility] Address: [address] [address] Performed By: #### 2 4323-8, 94726-6, 3039-04, 1987-06, ####[facility] LABCLIA [id number] [place] [address] [place] CO2 [Moles/Vol] 21 mmol/L Low 22-30 [facility] Comment on above: Order Comment: Speci men Type: BLOOD SPECIMENOrdering Facility: [facility] Address: [address] [place] [address] Performed By: #### 2 4323-8, 51855-6, 3039-04, 1987-06, ####[facility] LABCLIA [id number] [place] [address] [place] Creatinine [Mass/Vol] 0.83 mg/dL Normal 0.58-0.96 [facility] Comment on above: Order Comment: Speci men Type: BLOOD SPECIMENOrdering Facility: [facility] Address: [address] [phone] Performed By: #### 2 4323-8, 36592-4, 3039-04, 1987-06, ####[facility] LABCLIA [id number] [place] [id number] [place] ESTIMATED GLOMERULAR FILTRATION RATE 96 mL/min/1.73m??? Normal >=60 [facility] Comment on above: Order Comment: Geraldo marrero Type: BLOOD SPECIMENOrdering Facility: [facility] Address: [address] [place], [place] [phone] Result Comment: Jessica mated Glomerular Filtration Rate (eGFR) is calculated [...] actual GFR. Performed By: #### 2 4323-8, 23279-3, 3039-04, 1987-06, ####[facility] LABCLIA [id number] [place] [id number] [place] Glucose [Mass/Vol] 81 mg/dL Normal 74-99 [facility] Comment on above: Order Comment: Geraldo marrero Type: BLOOD SPECIMENOrdering Facility: [facility] Address: [address] [place], [place] [id number] Result Comment: The [place] [employer] (ADA) provides guidance for cutoff [...] Standards of Medical Care in Diabetes 2016, [place] [employer]. Diabetes Care. 2016.39(Suppl 1). Performed By: #### 2 4323-8, 54973-5, 3039-04, 1987-06, ####[facility] LABCLIA [id number] [address] [address] [place] Potassium [Moles/Vol] 3.7 mmol/L Normal 3.7-5.1 [facility] Comment on above: Order Comment: Speci men Type: BLOOD SPECIMENOrdering Facility: [facility] Address: [place] [address] Performed By: #### 2 4323-8, 42708-0, 3039-04, 1987-06, ####[facility] LABCLIA [id number] [address] [address] [place] Protein [Mass/Vol] 7.3 g/dL Normal 6.3-8.0 [facility] Comment on above: Order Comment: Speci men Type: BLOOD SPECIMENOrdering Facility: [facility] Address: [address] [place] [address] Performed By: #### 2 4323-8, 10668-4, 3039-04, 1987-06, ####[facility] LABCLIA [id number] [place] [address] [place] Sodium [Moles/Vol] 139 mmol/L Normal 136-144 [facility] Comment on above: Order Comment: Speci men Type: BLOOD SPECIMENOrdering Facility: [facility] Address: [address] [place] [phone] Performed By: #### 2 4323-8, , 3039-04, 1987-06, ####[facility] LABCLIA [id number] [place] [id number] [place] Urea nitrogen [Mass/Vol] 10 mg/dL Normal 7-21 [facility] Comment on above: Order Comment: Speci men Type: BLOOD SPECIMENOrdering Facility: [facility] Address: [place] [address] Performed By: #### 2 4323-8, 04311-0, 3039-04, 1987-06, ####[facility] LABCLIA [id number] [place] [id number] [place] ED PROV NOTEon 06-20-2022 ED PROV NOTE Normal [facility] HISTORY PHYSICALon HISTORY PHYSICAL [facility] Lipase SerPl-cCncon 06-21-19 23 Lipase [Catalytic activity/Vol] 52 U/L Normal 16-61 [facility] Comment on above: Order Comment: Speci men Type: BLOOD SPECIMENOrdering Facility: [facility] Address: [address] [place] [address] Performed By: #### 2 4323-8, 14741-8, 3039-3, 1987-06, 54755-7 ####[facility] LABCLIA [id number] [place] [address] [place] Magnesium SerPl-mCncon 06-20 Magnesium [Mass/Vol] 2.1 mg/dL Normal 1.7-2.3 [facility] Comment on above: Order Comment: Speci men Type: BLOOD SPECIMENOrdering Facility: [facility] Address: [address] [place] [address] Performed By: #### 2 4323-8, 81113-8, 3039-04, 1987-06, ####[facility] LABCLIA [id number] [place] [address] [place] Procalcitonin SerPl-mCncon 0 06-20-2022 Procalcitonin [Mass/Vol] ng/mL Normal <0.09 [facility] [facility] Comment on above: Order Comment: Speci men Type: BLOOD SPECIMENOrdering Facility: [facility] Address: [address] [place], [place] [id number] Result Comment: For a guided interpretation of test results, please visit the Change in Procalcitonin Calculator, [email or web address]. Performed By: #### 2 4323-8, 50909-5, 3, 1987-06, 84089-6 ####[facility] LABCLIA [id number] [place] [id number] [place] Urinalysis complete panel (U )on 06-20-2022 Bacteria LM.HPF (Urine sed) [#/Area] Rare Abnormal None Seen [facility] Comment on above: Order Comment: Speci men Type: URINE SPECIMENOrdering Facility: [facility] Address: [address] [place] [address] Performed By: #### 2 4356-8 ####[facility] LABCLIA [id number] [place] [address] [place] [facility] Bilirubin Ql (U) Negative Normal Negative [facility] Comment on above: Order Comment: Speci men Type: URINE SPECIMENOrdering Facility: [facility] Address: [address] [place] [address] Performed By: #### 2 4356-8 ####[facility] LABCLIA [id number] [address] Clarity (Unsp spec) Clear Normal Clear [facility] Comment on above: Order Comment: Speci men Type: URINE SPECIMENOrdering Facility: [facility] Address: [address] [place] [address] Performed By: #### 2 4356-8 ####[facility] LABCLIA [id number] [address] Color (U) Light Yellow Normal Yellow [facility] Comment on above: Order Comment: Speci men Type: URINE SPECIMENOrdering Facility: [facility] Address: [address] [place], [place] [id number] Performed By: #### 2 4356-8 ####[facility] LABCLIA [id number] [address] [place] Epithelial cells LM.HPF (Urine sed) [#/Area] Few Normal [facility] Comment on above: Order Comment: Speci men Type: URINE SPECIMENOrdering Facility: [facility] Address: [address] [place], [place] [address] Performed By: #### 2 4356-8 ####[facility] LABCLIA [id number] [place] [address] [place] Glucose Test strip (U) [Mass/Vol] Negative Normal Trace, Negative [facility] Comment on above: Order Comment: Speci men Type: URINE SPECIMENOrdering Facility: [facility] Address: [address] [place] [place] [address] Performed By: #### 2 4356-8 ####[facility] LABCLIA [id number] [place] [address] [place] Hemoglobin Ql (U) Negative Normal Negative, Trace Cl [facility] Comment on above: Order Comment: Speci men Type: URINE SPECIMENOrdering Facility: [facility] Address: [address] [place] [place] [address] Performed By: #### 2 4356-8 ####[facility] LABCLIA [id number] [address] [place] Ketones Ql (U) Negative Normal Trace, Negative [facility] Comment on above: Order Comment: Speci men Type: URINE SPECIMENOrdering Facility: [facility] Address: [address] [place] [address] Performed By: #### 2 4356-8 ####[facility] LABCLIA [id number] [address] [place] Leukocyte esterase Test strip Ql (U) Negative Normal Negative, 25 Patito/uL [facility] Comment on above: Order Comment: Speci men Type: URINE SPECIMENOrdering Facility: [facility] Address: [address] [place] [place] [address] Performed By: #### 2 4356-8 ####[facility] LABCLIA [id number] [place] [address] [place] Nitrite Ql (U) Negative Normal Negative [facility] Comment on above: Order Comment: Speci men Type: URINE SPECIMENOrdering Facility: [facility] Address: [address] Performed By: #### 2 4356-8 ####[facility] LABIA [id number] [place] [address] [facility] pH (U) 8.0 [pH] Normal 5.0-8.0 [facility] Comment on above: Order Comment: Speci men Type: URINE SPECIMENOrdering Facility: [facility] Address: [address] [place], [place] [address] Performed By: #### 2 4356-8 ####[facility] LABIA [id number] [place] [address] [place] Protein (U) [Mass/Vol] Negative Normal Trace, Negative [facility] Comment on above: Order Comment: Speci men Type: URINE SPECIMENOrdering Facility: [facility] Address: [address] [place], [place] [address] Performed By: #### 2 4356-8 ####[facility] [id number] [place] [address] [place] RBC LM.HPF (Urine sed) [#/Area] 0-3 /HPF Normal 0-3 /HPF [facility] Comment on above: Order Comment: Speci men Type: URINE SPECIMENOrdering Facility: [facility] Address: [address] [place], [place] [address] Performed By: #### 2 4356-8 ####[facility] LABIA [id number] [place] [address] [place] Specific gravity (U) [Rel density] 1.011 Normal 1.005-1.030 [facility] Comment on above: Order Comment: Speci men Type: URINE SPECIMENOrdering Facility: [facility] Address: [address] [place], [place] [address] Performed By: #### 2 4356-8 ####[facility] LABIA [id number] [place] [address] [place] Urobilinogen Ql (U) Negative Normal Negative [facility] Comment on above: Order Comment: Speci men Type: URINE SPECIMENOrdering Facility: [facility] Address: [address] [place] [address] Performed By: #### 2 4356-8 ####[facility] LABCLIA [id number] [place] [address] [place] WBC LM.HPF (Urine sed) [#/Area] 0-5 /HPF Normal 0-5 /HPF [facility] Comment on above: Order Comment: Speci men Type: URINE SPECIMENOrdering Facility: [facility] Address: [address] [place] [address] Performed By: #### 2 4356-8 ####[facility] LABCLIA [id number] [place] [address] [place] CBC W Auto Differential pane l (Bld)on 06-16-2022 Basophils (Bld) [#/Vol] 0.05 10*3/uL Normal <0.11 [facility] Comment on above: Order Comment: Speci men Type: BLOOD SPECIMENOrdering Facility: [facility] Address: [address] [place] [address] Performed By: #### 5 7021-8 ####[facility] LABORATORYIA [id number] [place] [address] [place] Basophils/100 WBC (Bld) 1.0 % Normal [facility] Comment on above: Order Comment: Speci men Type: BLOOD SPECIMENOrdering Facility: [facility] Address: [address] [place] [address] Performed By: #### 5 7021-8 ####[facility] LABORATORYIA [id number] [place] [address] [place] Differential cell count method Nom (Bld) Auto Normal [facility] Comment on above: Order Comment: Speci men Type: BLOOD SPECIMENOrdering Facility: [facility] Address: [address] [place] [address] Performed By: #### 5 7021-8 ####[facility] LABORATORYIA [id number] [place] [address] [place] Eosinophils (Bld) [#/Vol] 0.08 10*3/uL Normal <0.46 [facility] Comment on above: Order Comment: Speci men Type: BLOOD SPECIMENOrdering Facility: [facility] Address: [address] [place] [address] Performed By: #### 5 7021-8 ####[facility] LABORATORYIA [id number] [address] [place] Eosinophils/100 WBC (Bld) 1.6 % Normal [facility] Comment on above: Order Comment: Speci men Type: BLOOD SPECIMENOrdering Facility: [facility] Address: [address] [place] [address] Performed By: #### 5 7021-8 ####[facility] [id number] [address] [place] Erythrocyte distribution width (RBC) [Ratio] 12.9 % Normal 11.5-15.0 [facility] Comment on above: Order Comment: Speci men Type: BLOOD SPECIMENOrdering Facility: [facility] Address: [address] [place] [address] Performed By: #### 5 7021-8 ####[facility] [id number] [address] [place] Hematocrit (Bld) [Volume fraction] 38.3 % Normal 36.0-46.0 [facility] Comment on above: Order Comment: Speci men Type: BLOOD SPECIMENOrdering Facility: [facility] Address: [address] [place] [address] Performed By: #### 5 7021-8 ####[facility] LABORATORYIA [id number] [place] [address] [place] Hemoglobin (Bld) [Mass/Vol] 12.9 g/dL Normal 11.5-15.5 [facility] Comment on above: Order Comment: Speci men Type: BLOOD SPECIMENOrdering Facility: [facility] Address: [address] [place] [address] Performed By: #### 5 7021-8 ####[facility] LABORATORYCLIA [id number] [place] [address] [place] Immature granulocytes (Bld) [#/Vol] 10*3/uL Normal <0.10 [facility] Comment on above: Order Comment: Speci men Type: BLOOD SPECIMENOrdering Facility: [facility] Address: [address] [place] [place] [address] Performed By: #### 5 7021-8 ####[facility] LABORATORYCLIA [id number] [place] [address] [place] Immature granulocytes/100 WBC (Bld) 0.2 % Normal [facility] Comment on above: Order Comment: Speci men Type: BLOOD SPECIMENOrdering Facility: [facility] Address: [address] Performed By: #### 5 7021-8 ####[facility] LABORATORYIA [id number] [place] [address] [place] Lymphocytes (Bld) [#/Vol] 2.12 10*3/uL Normal 1.00-4.00 [facility] Comment on above: Order Comment: Speci men Type: BLOOD SPECIMENOrdering Facility: [facility] Address: [address] Performed By: #### 5 7021-8 ####[facility] LABORATORYCLIA [id number] [place] [id number] [place] Lymphocytes/100 WBC (Bld) 43.6 % Normal [facility] Comment on above: Order Comment: Speci men Type: BLOOD SPECIMENOrdering Facility: [facility] Address: [address] [place] [address] Performed By: #### 5 7021-8 ####[facility] LABORATORYCLIA [id number] [place] [address] [place] MCH (RBC) [Entitic mass] 30.9 pg Normal 26.0-34.0 [facility] Comment on above: Order Comment: Speci men Type: BLOOD SPECIMENOrdering Facility: [facility] Address: [address] [place] [address] Performed By: #### 5 7021-8 ####[facility] [id number] [address] [place] MCHC (RBC) [Mass/Vol] 33.7 g/dL Normal 30.5-36.0 [facility] Comment on above: Order Comment: Speci men Type: BLOOD SPECIMENOrdering Facility: [facility] Address: [address] [place] [address] Performed By: #### 5 7021-8 ####[facility] [id number] [address] [place] MCV (RBC) [Entitic vol] 91.8 fL Normal 80.0-100.0 [facility] Comment on above: Order Comment: Speci men Type: BLOOD SPECIMENOrdering Facility: [facility] Address: [address] [place] [address] Performed By: #### 5 7021-8 ####[facility] [id number] [place] [address] [place] Monocytes (Bld) [#/Vol] 0.27 10*3/uL Normal <0.87 [facility] Comment on above: Order Comment: Speci men Type: BLOOD SPECIMENOrdering Facility: [facility] Address: [address] [place] [address] Performed By: #### 5 7021-8 ####[facility] [id number] [address] [place] Monocytes/100 WBC (Bld) 5.6 % Normal [facility] Comment on above: Order Comment: Speci men Type: BLOOD SPECIMENOrdering Facility: [facility] Address: [address] [place] [address] Performed By: #### 5 7021-8 ####[facility] LABORATORYIA [id number] [place] [address] [place] Neutrophils (Bld) [#/Vol] 2.33 10*3/uL Normal 1.45-7.50 [facility] Comment on above: Order Comment: Speci men Type: BLOOD SPECIMENOrdering Facility: [facility] Address: [address] [place] [address] Performed By: #### 5 7021-8 ####[facility] [id number] [place] [address] [place] Neutrophils/100 WBC (Bld) 48.0 % Normal [facility] Comment on above: Order Comment: Speci men Type: BLOOD SPECIMENOrdering Facility: [facility] Address: [address] [place] [address] Performed By: #### 5 7021-8 ####[facility] [id number] [place] [address] [place] Nucleated RBC (Bld) [#/Vol] 10*3/uL Normal <0.01 [facility] Comment on above: Order Comment: Speci men Type: BLOOD SPECIMENOrdering Facility: [facility] Address: [address] [place] [address] Performed By: #### 5 7021-8 ####[facility] [id number] [place] [address] [place] Nucleated RBC/100 WBC (Bld) [Ratio] 0.0 /100 WBC Normal [facility] Comment on above: Order Comment: Speci men Type: BLOOD SPECIMENOrdering Facility: [facility] Address: [address] [place] [place] [address] Performed By: #### 5 7021-8 ####[facility] LABORATORYIA [id number] [place] [id number] [place] Platelet mean volume (Bld) [Entitic vol] 11.3 fL Normal 9.0-12.7 [facility] Comment on above: Order Comment: Speci men Type: BLOOD SPECIMENOrdering Facility: [facility] Address: [address] Performed By: #### 5 7021-8 ####[facility] LABORATORYCLIA [id number] [facility] [place] [place] [address] [place] Platelets (Bld) [#/Vol] 256 10*3/uL Normal 150-400 [facility] Comment on above: Order Comment: Speci men Type: BLOOD SPECIMENOrdering Facility: [facility] Address: [address] Performed By: #### 5 7021-8 ####[facility] [id number] [place] [address] [place] RBC (Bld) [#/Vol] 4.17 10*6/uL Normal 3.90-5.20 [facility] Comment on above: Order Comment: Speci men Type: BLOOD SPECIMENOrdering Facility: [facility] Address: [address] Performed By: #### 5 7021-8 ####[facility] [id number] [place] [id number] [place] WBC (Bld) [#/Vol] 4.86 10*3/uL Normal 3.70-11.00 [facility] Comment on above: Order Comment: Speci men Type: BLOOD SPECIMENOrdering Facility: [facility] Address: [address] Performed By: #### 5 7021-8 ####[facility] LABORATORYIA [id number] [place] [address] [place] CT ABD/PEL WO IVCONon 2022 CT ABD/PEL WO IVCON Normal [facility] Comprehensive metabolic 2000 panelon 06-16-2022 Albumin [Mass/Vol] 4.1 g/dL Normal 3.9-4.9 [facility] Comment on above: Order Comment: Speci men Type: BLOOD SPECIMENOrdering Facility: [facility] Address: [address] [place] [place] [address] Performed By: #### 2 8, ####[facility] LABORATORYCLIA [id number] [facility] [place] [address] [place] ALP [Catalytic activity/Vol] 65 U/L Normal 34-123 [facility] Comment on above: Order Comment: Speci men Type: BLOOD SPECIMENOrdering Facility: [facility] Address: [address] [place] [address] Performed By: #### 2 8, ####[facility] LABORATORYCLIA [id number] [place] [address] [place] ALT [Catalytic activity/Vol] 20 U/L Normal 7-38 [facility] Comment on above: Order Comment: Speci men Type: BLOOD SPECIMENOrdering Facility: [facility] Address: [address] [place] [address] Performed By: #### 2 4322-09, ####[facility] LABORATORYCLIA [id number] [place] [address] [place] Anion gap [Moles/Vol] 10 mmol/L Normal 9-18 [facility] Comment on above: Order Comment: Speci men Type: BLOOD SPECIMENOrdering Facility: [facility] Address: [address] Performed By: #### 2 4322-09, ####[facility] LABORATORYCLIA [id number] [place] [address] [place] AST [Catalytic activity/Vol] 34 U/L Normal 13-35 [facility] Comment on above: Order Comment: Speci men Type: BLOOD SPECIMENOrdering Facility: [facility] Address: [address] [place] [place] [address] Performed By: #### 2 4328, ####[facility] LABORATORYCLIA [id number] [place] [address] [place] Bilirubin [Mass/Vol] 0.4 mg/dL Normal 0.2-1.3 [facility] Comment on above: Order Comment: Speci men Type: BLOOD SPECIMENOrdering Facility: [facility] Address: [address] [place] [address] Performed By: #### 2 4328, ####[facility]ORY[facility] [id number] [place] [address] [place] Calcium [Mass/Vol] 9.0 mg/dL Normal 8.5-10.2 [facility] Comment on above: Order Comment: Speci men Type: BLOOD SPECIMENOrdering Facility: [facility] Address: [address] [place] [address] Performed By: #### 2 4328, ####[facility] [id number] [place] [address] [place] Chloride [Moles/Vol] 108 mmol/L High 97-105 [facility] Comment on above: Order Comment: Speci men Type: BLOOD SPECIMENOrdering Facility: [facility] Address: [address] [place] [address] Performed By: #### 2 4322-09, ####[facility]ORYIA [id number] [place] [address] [place] CO2 [Moles/Vol] 20 mmol/L Low 22-30 [facility] ital Comment on above: Order Comment: Speci men Type: BLOOD SPECIMENOrdering Facility: [facility] Address: [address] [place], [place] [id number] Performed By: #### 2 4328, ####[facility]ORY[facility] [id number] [place] [address] [place] Creatinine [Mass/Vol] 0.73 mg/dL Normal 0.58-0.96 [facility] Comment on above: Order Comment: Speci men Type: BLOOD SPECIMENOrdering Facility: [facility] Address: [address] Performed By: #### 2 4323-8, ####[facility] LABORATORYCLIA [id number] [place] [id number] [place] ESTIMATED GLOMERULAR FILTRATION RATE 112 mL/min/1.73m??? Normal >=60 [facility] Comment on above: Order Comment: Geraldo marrero Type: BLOOD SPECIMENOrdering Facility: [facility] Address: [address] [place] [address] Result Comment: Jessica mated Glomerular Filtration Rate (eGFR) is calculated [...] actual GFR. Performed By: #### 2 4323-8, ####[facility]ORYIA [id number] [place] [address] [place] Glucose [Mass/Vol] 82 mg/dL Normal 74-99 [facility] Comment on above: Order Comment: Geraldo marrero Type: BLOOD SPECIMENOrdering Facility: [facility] Address: [address] [place] [address] Result Comment: The [place] [employer] (ADA) provides guidance for cutoff [...] Standards of Medical Care in Diabetes 2016, [place] [employer]. Diabetes Care. 2016.39(Suppl 1). Performed By: #### 2 4323-8, ####[facility] LABORATORYCLIA [id number] [place] [address] [place] Potassium [Moles/Vol] 3.9 mmol/L Normal 3.7-5.1 [facility] Comment on above: Order Comment: Speci men Type: BLOOD SPECIMENOrdering Facility: [facility] Address: [address] [place] [address] Performed By: #### 2 4323-8, ####[facility] [id number] [place] [address] [place] Protein [Mass/Vol] 6.5 g/dL Normal 6.3-8.0 [facility] Comment on above: Order Comment: Speci men Type: BLOOD SPECIMENOrdering Facility: [facility] Address: [address] [place] [address] Performed By: #### 2 4323-8, ####[facility] [id number] [place] [address] [place] Sodium [Moles/Vol] 138 mmol/L Normal 136-144 [facility] Comment on above: Order Comment: Speci men Type: BLOOD SPECIMENOrdering Facility: [facility] Address: [address] [place] [address] Performed By: #### 2 4323-8, ####[facility] [id number] [facility] [place] [place] [address] [place] Urea nitrogen [Mass/Vol] 8 mg/dL Normal 7-21 [facility] Comment on above: Order Comment: Speci men Type: BLOOD SPECIMENOrdering Facility: [facility] Address: [address] [place] [address] Performed By: #### 2 4323-8, ####[facility]ORYIA [id number] [place] [address] [place] ECG COMPLETEon 06-16-2022 ECG COMPLETE Normal [facility] ED NOTEon 06-16-2022 ED NOTE Normal [facility] ED PROV NOTEon 06-16-2022 ED PROV NOTE Normal [facility] Magnesium SerPl-mCncon 06-16 Magnesium [Mass/Vol] 2.0 mg/dL Normal 1.7-2.3 [facility] Comment on above: Order Comment: Speci men Type: BLOOD SPECIMENOrdering Facility: [facility] Address: [address] [address] Performed By: #### 2 4323-8, 59781-9 ####[facility] [id number] [place] [address] [place] Urinalysis complete panel (U )on 06-16-2022 Bilirubin Ql (U) Negative Normal Negative [facility] Comment on above: Order Comment: Speci men Type: URINE SPECIMENOrdering Facility: [facility] Address: [address] [place] [address] Performed By: #### 2 4356-8 ####[facility] [id number] [place] [address] [place] Clarity (Unsp spec) Clear Normal Clear [facility] Comment on above: Order Comment: Speci men Type: URINE SPECIMENOrdering Facility: [facility] Address: [address] [place] [address] Performed By: #### 2 4356-8 ####[facility] [id number] [place] [address] [place] Color (U) Colorless Normal yellow [facility] Comment on above: Order Comment: Speci men Type: URINE SPECIMENOrdering Facility: [facility] Address: [address] [place] [address] Performed By: #### 2 4356-8 ####[facility] [id number] [place] [id number] [place] Epithelial cells LM.HPF (Urine sed) [#/Area] Few Normal [facility] Comment on above: Order Comment: Speci men Type: URINE SPECIMENOrdering Facility: [facility] Address: [address] [place] [place] [address] Performed By: #### 2 4356-8 ####[facility] [id number] [place] [address] [place] Glucose Test strip (U) [Mass/Vol] Negative Normal Trace, Negative [facility] Comment on above: Order Comment: Speci men Type: URINE SPECIMENOrdering Facility: [facility] Address: [address] [place] [address] Performed By: #### 2 4356-8 ####[facility] [id number] [place] [address] [place] Hemoglobin Ql (U) Negative Normal Negative, Trace [facility] Comment on above: Order Comment: Speci men Type: URINE SPECIMENOrdering Facility: [facility] Address: [address] [place] [address] Performed By: #### 2 4356-8 ####[facility] [id number] [place] [address] [place] Ketones Ql (U) Negative Normal Negative, Trace [facility] Comment on above: Order Comment: Speci men Type: URINE SPECIMENOrdering Facility: [facility] Address: [address] [place] [address] Performed By: #### 2 4356-8 ####[facility] [id number] [place] [address] [place] Leukocyte esterase Test strip Ql (U) Negative Normal Negative, 25 Patito/uL [facility] Comment on above: Order Comment: Speci men Type: URINE SPECIMENOrdering Facility: [facility] Address: [address] [address] Performed By: #### 2 4356-8 ####[facility] [id number] [place] [address] [place] Nitrite Ql (U) Negative Normal Negative [facility] Comment on above: Order Comment: Speci men Type: URINE SPECIMENOrdering Facility: [facility] Address: [address] [address] Performed By: #### 2 4356-8 ####[facility] [id number] [place] [address] [place] pH (U) 7.5 [pH] Normal 5.0-8.0 [facility] Comment on above: Order Comment: Speci men Type: URINE SPECIMENOrdering Facility: [facility] Address: [address] [place] [address] Performed By: #### 2 4356-8 ####[facility] [id number] [place] [address] [place] Protein (U) [Mass/Vol] Negative Normal Trace, Negative [facility] Comment on above: Order Comment: Speci men Type: URINE SPECIMENOrdering Facility: [facility] Address: [address] [place] [address] Performed By: #### 2 4356-8 ####[facility] [id number] [place] [address] [place] RBC LM.HPF (Urine sed) [#/Area] 0-3 /HPF Normal 0-3 /HPF [facility] Comment on above: Order Comment: Speci men Type: URINE SPECIMENOrdering Facility: [facility] Address: [address] [place] [address] Performed By: #### 2 4356-8 ####[facility] [id number] [place] [id number] [place] Specific gravity (U) [Rel density] 1.009 Normal 1.005-1.030 [facility] Comment on above: Order Comment: Speci men Type: URINE SPECIMENOrdering Facility: [facility] Address: [address] [place] [address] Performed By: #### 2 4356-8 ####[facility] [id number] [place] [address] [place] Urobilinogen Ql (U) Normal Normal Negative [facility] Comment on above: Order Comment: Speci men Type: URINE SPECIMENOrdering Facility: [facility] Address: [address] [address] Performed By: #### 2 4356-8 ####[facility] [id number] [place] [address] [place] WBC LM.HPF (Urine sed) [#/Area] 0-5 /HPF Normal 0-5 /HPF [facility] Comment on above: Order Comment: Speci men Type: URINE SPECIMENOrdering Facility: [facility] Address: [address] [address] Performed By: #### 2 4356-8 ####[facility] [id number] [place] [address] [place] C3 COMPLEMENT [facility] 06-13-19 23 Complement C3 [Mass/Vol] 140 mg/dL 86 - 166 mg/dL [facility] C4 COMPLEMENT [facility] 06-13-19 23 Complement C4 [Mass/Vol] 25 mg/dL 13 - 46 mg/dL [facility] CBC W Auto Differential pane l (Bld)on 06-12-2022 Basophils (Bld) [#/Vol] 0.04 10*3/uL <0.11 k/uL [facility] Basophils/100 WBC (Bld) 0.9 % [facility] Differential cell count method Nom (Bld) Auto [facility] Eosinophils (Bld) [#/Vol] 0.09 10*3/uL <0.46 k/uL [facility] Eosinophils/100 WBC (Bld) 2.0 % [facility] Erythrocyte distribution width (RBC) [Ratio] 12.8 % 11.5 - 15.0 % [facility] Hematocrit (Bld) [Volume fraction] 40.5 % 36.0 - 46.0 % [facility] Hemoglobin (Bld) [Mass/Vol] 13.4 g/dL 11.5 - 15.5 g/dL [facility] Immature granulocytes (Bld) [#/Vol] <0.10 k/uL [facility] Immature granulocytes/100 WBC (Bld) 0.2 % [facility] Lymphocytes (Bld) [#/Vol] 1.73 10*3/uL 1.00 - 4.00 k/uL [facility] Lymphocytes/100 WBC (Bld) 37.9 % [facility] MCH (RBC) [Entitic mass] 30.0 pg 26.0 - 34.0 pg [facility] MCHC (RBC) [Mass/Vol] 33.1 g/dL 30.5 - 36.0 g/dL [facility] MCV (RBC) [Entitic vol] 90.8 fL 80.0 - 100.0 fL [facility] Monocytes (Bld) [#/Vol] 0.23 10*3/uL <0.87 k/uL [facility] Monocytes/100 WBC (Bld) 5.0 % [facility] Neutrophils (Bld) [#/Vol] 2.46 10*3/uL 1.45 - 7.50 k/uL [facility] Neutrophils/100 WBC (Bld) 54.0 % [facility] Nucleated RBC (Bld) [#/Vol] <0.01 k/uL [facility] Nucleated RBC/100 WBC (Bld) [Ratio] 0.0 /100 WBC [facility] Platelet mean volume (Bld) [Entitic vol] 11.3 fL 9.0 - 12.7 fL [facility] Platelets (Bld) [#/Vol] 292 10*3/uL 150 - 400 k/uL [facility] RBC (Bld) [#/Vol] 4.46 10*6/uL 3.90 - 5.20 m/uL [facility] WBC (Bld) [#/Vol] 4.56 10*3/uL 3.70 - 11.00 k/u L [facility] CK CREATINE KINASEon 023 CK [Catalytic activity/Vol] 44 U/L 42 - 196 U/L [facility] Comprehensive metabolic 2000 panelon 06-12-2022 Albumin [Mass/Vol] 4.3 g/dL 3.9 - 4.9 g/dL [facility] ALP [Catalytic activity/Vol] 64 U/L 34 - 123 U/L [facility] ALT [Catalytic activity/Vol] 20 U/L 7 - 38 U/L [facility] Anion gap [Moles/Vol] 10 mmol/L 9 - 18 mmol/L [facility] AST [Catalytic activity/Vol] 33 U/L 13 - 35 U/L [facility] Bilirubin [Mass/Vol] 0.4 mg/dL 0.2 - 1.3 mg/dL [facility] Calcium [Mass/Vol] 9.3 mg/dL 8.5 - 10.2 mg/dL [facility] Chloride [Moles/Vol] 106 mmol/L High 97 - 105 mmol/L [facility] CO2 [Moles/Vol] 23 mmol/L 22 - 30 mmol/L [facility] Creatinine [Mass/Vol] 0.76 mg/dL 0.58 - 0.96 mg/dL [facility] Estimated Glomerular Filtration Rate 106 mL/min/1.73m >=60 mL/min/1.73m [facility] Glucose [Mass/Vol] 79 mg/dL 74 - 99 mg/dL [facility] Potassium [Moles/Vol] 4.0 mmol/L 3.7 - 5.1 mmol/L [facility] Protein [Mass/Vol] 6.9 g/dL 6.3 - 8.0 g/dL [facility] Sodium [Moles/Vol] 139 mmol/L 136 - 144 mmol/L [facility] Urea nitrogen [Mass/Vol] 9 mg/dL 7 - 21 mg/dL [facility] FERRITIN BLDon 06-12-2022 Ferritin [Mass/Vol] 36.6 ng/mL 14.7 - 205.1 ng/ mL [facility] FOLATE SERUMon 06-12-2022 Folate [Mass/Vol] 6.8 ng/mL >4.7 ng/mL [facility] Iron and Iron binding capaci ty panelon 06-12-2022 Iron [Mass/Vol] 100 ug/dL 41 - 186 ug/dL [facility] Iron binding capacity [Mass/Vol] 332 ug/dL 232 - 386 ug/dL [facility] Iron/TIBC [Molar ratio] 30.1 % 15.0 - 57.0 % [facility] MAGNESIUM BLDon 06-12-2022 Magnesium [Mass/Vol] 2.2 mg/dL 1.7 - 2.3 mg/dL [facility] RHEUMATOID FACTOR BLon 06-12 Rheumatoid factor Qn <16 IU/mL [facility] VITAMIN B12 BLOODon 06-13-19 Cobalamin (Vitamin B12) [Mass/Vol] 854 pg/mL 232 - 1,245 pg/mL [facility] CHEMISTRYOrdered By: SYSTEM SYSTEM on 06-10-2022 Troponin I.cardiac [Mass/Vol] pg/mL Low 10.10 - 27.10 pg/mL [facility] Anion gap [Moles/Vol] 13 mmol/L Normal 6 - 16 mEq/L [facility] Calcium [Mass/Vol] 9.0 mg/dL Normal 8.9 - 11.1 mg/dL [facility] Chloride [Moles/Vol] 105 mmol/L Normal 101 - 111 mmol/L [facility] CO2 [Moles/Vol] 20 mmol/L Low 21 - 31 mmol/L [facility] Creatinine [Mass/Vol] 0.8 mg/dL Normal 0.5 - 1.3 mg/dL [facility] CRP [Mass/Vol] 0.6 mg/dL Normal <=1.9mg/dL [facility] GFR/1.73 sq M.predicted among non-blacks MDRD (S/P/Bld) [Vol rate/Area] 100 mL/min/1.73 m2 Normal >=59mL/min/1.73 m2 [facility] [place] Chem S Glucose [Mass/Vol] [...] 34.8 s Normal 25.1 - 36.5 second(s) [facility] Auto Coag INR Coag (PPP) [Relative time] 1.1 {INR} Invalid Interpretation Code [facility] Auto Coag PT Coag (PPP) [Time] 12.6 s High 9.4 - 12.5 second(s) [facility] Auto Coag HEMATOLOGYOrdered By: SYSTEM SYSTEM on 06-10-2022 Basophils/100 WBC (Bld) 0.8 % Normal 0.0 - 2.0 % [facility] HemeAutoSS Basophils/Leukocyte s Auto (Bld) [Pure # fraction] 0.0 E9/L Normal 0.0 - 0.2 E9/L [facility] Eosinophils/100 WBC (Bld) 2.2 % Normal 0.0 - 8.0 % [facility] Eosinophils/Leukocy stevan Auto (Bld) [Pure # fraction] 0.1 E9/L Normal 0.0 - 0.5 E9/L [facility] Lymphocytes/100 WBC (Bld) 33.1 % Normal 14.0 - 50.0 % [facility] Lymphocytes/Leukocy stevan Auto (Bld) [Pure # fraction] 1.9 E9/L Normal 1.0 - 4.0 E9/L [facility] Monocytes/100 WBC (Bld) 5.4 % Normal 4.0 - 14.0 % [facility] Monocytes/Leukocyte s Auto (Bld) [Pure # fraction] 0.3 E9/L Normal 0.2 - 1.0 E9/L [facility] Neutrophils/100 WBC (Bld) 58.5 % Normal 36.0 - 75.0 % [facility] Neutrophils/Leukocy stevan Auto (Bld) [Pure # fraction] 3.4 E9/L Normal 2.0 - 7.5 E9/L [facility] HEMATOLOGYOrdered By: Edilberto Meng on 06-10-2022 Erythrocyte distribution width (RBC) [Ratio] 13.9 % Normal 10.9 - 14.2 % [facility] Hematocrit (Bld) [Volume fraction] 40.9 % Normal 34.0 - 46.0 % [facility] Hemoglobin (Bld) [Mass/Vol] 13.9 g/dL Normal 12.0 - 16.0 gm/dL [facility] MCH (RBC) [Entitic mass] 30.6 pg Normal 27.0 - 34.0 pg [facility] MCHC (RBC) [Mass/Vol] 34.0 g/dL Normal 31.4 - 36.0 gm/dL [facility] MCV (RBC) [Entitic vol] 89.9 fL Normal 80.0 - 100.0 fL [facility] Platelet mean volume (Bld) [Entitic vol] 9.1 fL Normal 6.4 - 10.8 fL [facility] Platelets (Bld) [#/Vol] 249.0 E9/L Normal 150.0 - 500.0 E9/L [facility] RBC (Bld) [#/Vol] 4.6 E12/L Normal 4.3 - 5.9 E12/L [facility] Sed Rate Automated 8 mm/h Normal 0 - 34 mm/hr [facility] WBC corrected for nucl RBC Auto (Bld) [#/Vol] 5.8 E9/L Normal 4.0 - 11.0 E9/L [facility] [place] [facility] AMYLASEon 06-09-2022 Amylase [Catalytic activity/Vol] 41 U/L Normal 25-115 [facility] Comment on above: Performed By: #### G RUBIN, LIPID #### [facility] [address] [place] [address] Dr. Stephan Tavares CBC AUTO DIFFon 06-09-2022 BASO # 0.0 103/ul Normal 0.0-0.1 [facility] Comment on above: Performed By: #### G RUBNI, LIPID #### [facility] [address] [place] [address] Dr. Stephan Tavares Basophils/100 WBC (Bld) 0.7 % Normal 0.2-2.0 [facility] Comment on above: Performed By: #### G RUBIN, LIPID #### [facility] [address] [place] [address] Dr. Stephan Tavares EO # 0.1 103/ul Normal 0.0-0.7 [facility] Comment on above: Performed By: #### G RUBIN, LIPID #### [facility] [address] [place] [address] Dr. Stephan Tavares Eosinophils/100 WBC (Bld) 1.5 % Normal 0.9-7.0 [facility] Comment on above: Performed By: #### G RUBIN, LIPID #### [facility] [address] [place] [address] Dr. Stephan Tavares Erythrocyte distribution width (RBC) [Ratio] 13.1 % Normal 11.0-15.0 [facility] Comment on above: Performed By: #### G RUBIN, LIPID #### [facility] [address] [place] [address] Dr. Stephan Tavares Hematocrit (Bld) [Volume fraction] 43.2 % Normal 36.0-48.0 [facility] Comment on above: Performed By: #### G RUBIN, LIPID #### [facility] [address] [place] [address] Dr. Stephan Tavares Hemoglobin (Bld) [Mass/Vol] 14.6 g/dL Normal 12.0-16.0 [facility] Comment on above: Performed By: #### G RUBIN, LIPID #### [facility] [address] [place] [address] Dr. Stephan Tavares IG # 0.01 10e3/ul Normal 0.00-0.03 [facility] Comment on above: Performed By: #### G RUBIN, LIPID #### [facility] [address] [place] [address] Dr. Stephan Tavares IG % 0.2 % Normal 0.0-0.5 [facility] Comment on above: Performed By: #### G RUBIN, LIPID #### [facility] [address] [place] [address] Dr. Stephan Tavares LYMPH # 2.1 103/ul Normal 1.2-3.8 [facility] Comment on above: Performed By: #### G RUBIN, LIPID #### [facility] [address] [place] [address] Dr. Stephan Tavares Lymphocytes/100 WBC (Bld) 39.1 % Normal 20.5-60.0 [facility] Comment on above: Performed By: #### G RUBIN, LIPID #### [facility] [address] [place] [address] Dr. Stephan Tavares MANUAL DIFF REQ NO Normal [facility] Comment on above: Performed By: #### G RUBIN, LIPID #### [facility] [address] [place] [address] Dr. Stephan Tavares MCH (RBC) [Entitic mass] 30.2 pg Normal 26.7-34.0 [facility] Comment on above: Performed By: #### G RUBIN, LIPID #### [facility] [address] [place] [address] Dr. Stephan Tavares MCHC (RBC) [Mass/Vol] 33.8 g/dL Normal 29.9-35.2 [facility] Comment on above: Performed By: #### G RUBIN, LIPID #### [facility] [address] [place] [address] Dr. Stephan Tavares MCV (RBC) [Entitic vol] 89.3 fL Normal 81.0-99.0 [facility] Comment on above: Performed By: #### G RUBIN, LIPID #### [facility] [address] [place] [address] Dr. Stephan Tavares MONO # 0.3 103/ul Normal 0.3-0.8 [facility] Comment on above: Performed By: #### G RUBIN, LIPID #### [facility] [address] [place] [address] Dr. Stephan Tavares Monocytes/100 WBC (Bld) 5.2 % Normal 1.7-12.0 [facility] Comment on above: Performed By: #### G RUBIN, LIPID #### [facility] [address] [place] [address] Dr. Stephan Tavares NEUT # 2.9 103/ul Normal 1.4-6.5 [facility] Comment on above: Performed By: #### G RUBIN, LIPID #### [facility] [address] [place] [address] Dr. Stephan Tavares Neutrophils/100 WBC (Bld) 53.3 % Normal 43.0-75.0 [facility] Comment on above: Performed By: #### G RUBIN, LIPID #### [facility] [address] [place] [address] Dr. Stephan Tavares Platelet mean volume (Bld) [Entitic vol] 10.9 fL Normal 9.5-13.5 [facility] Comment on above: Performed By: #### G RUBIN, LIPID #### [facility] [address] [place] [address] Dr. Stephan Tavares PLT 271 103/ul Normal 150-450 [facility] Comment on above: Performed By: #### G RUBIN, LIPID #### [facility] [address] [address] [address] Stephan Tavares RBC 4.84 106/ul Normal 4.20-5.40 [facility] Comment on above: Performed By: #### G RUBIN, LIPID #### [facility] [address] [address] [address] Stephan Tavares WBC 5.4 103/ul Normal 4.0-11.0 [facility] Comment on above: Performed By: #### G RUBIN, LIPID #### [facility] [address] [address] [address] ABD/PELVIS WO CONon [...] ALVERTO PHAM Date: 2022-06-09 16:14 Normal [facility] ER URINE PROFILEon 3 Bilirubin Ql (U) Negative Normal NEGATIVE [facility] Comment on above: Performed By: #### G RUBIN, LIPID #### [facility] [address] [place] [address] Dr. Stephan Tavares Clarity (U) CLEAR Normal CLEAR [facility] Comment on above: Performed By: #### G RUBIN, LIPID #### [facility] [address] [address] [address] Stephan Tavares Color (U) LT. YELLOW Normal YELLOW [facility] Comment on above: Performed By: #### G RUBIN, LIPID #### [facility] [address] [place] [address] Dr. Stephan KUMAR A micrscopic examination will be performed if indicated. Normal [facility] Comment on above: Performed By: #### G RUBIN, LIPID #### [facility] [address] [address] [address] Stephan Tavares Glucose Ql (U) Negative Normal NEGATIVE [facility] Comment on above: Performed By: #### G RUBIN, LIPID #### [facility] [address] [place] [address] Dr. Stephan Tavares Hemoglobin Ql (U) Negative Normal NEGATIVE [facility] Comment on above: Performed By: #### G RUBIN, LIPID #### [facility] [address] [address] [address] Stephan Tavares Ketones Ql (U) Negative Normal NEGATIVE [facility] Comment on above: Performed By: #### G RUBIN, LIPID #### [facility] [address] [address] [address] Stephan Tavares LEUKOCYTES Negative Normal NEGATIVE [facility] Comment on above: Performed By: #### G RUBIN, LIPID #### [facility] [address] [place] [address] Dr. Stephan Tavares Nitrite Ql (U) Negative Normal NEGATIVE [facility] Comment on above: Performed By: #### G RUBIN, LIPID #### [facility] [address] [place] [address] Dr. Stephan Tavares pH (U) 7.5 [pH] Normal 5-9 [facility] Comment on above: Performed By: #### G RUBIN, LIPID #### [facility] [address] [place] [address] Dr. Stephan Tavares SPEC GRAVITY 1.015 Normal 1.005-<=1.025 [facility] Comment on above: Performed By: #### G RUBIN, LIPID #### [facility] [address] [place] [address] Dr. Stephan Tavares UA PROTEIN Negative Normal NEGATIVE/ TRACE [facility] Comment on above: Performed By: #### G RUBIN, LIPID #### [facility] [address] [place] [address] Dr. Stephan Tavares UR MICRO IND NOT INDICATED Normal [facility] Comment on above: Performed By: #### G RUBIN, LIPID #### [facility] [address] [place] [address] Dr. Stephan Tavares Urobilinogen Qn (U) 0.2 {Munir'U}/dL Normal 0.2 - 1. 0 [facility] Comment on above: Performed By: #### G RUBIN, LIPID #### [facility] [address] [place] [address] Dr. Stephan Tavares LIPASEon 06-09-2022 Lipase [Catalytic activity/Vol] 120.0 U/L Normal 73.0-393.0 [facility] Comment on above: Performed By: #### G RUBIN, LIPID #### [facility] [address] [place] [address] Dr. Stephan Tavares PROF 14(COMP METB)on 023 Albumin [Mass/Vol] 4.4 g/dL Normal 3.4-5.0 [facility] Comment on above: Performed By: #### G RUBIN, LIPID #### [facility] [address] [place] [address] Dr. Stephan Tavares Albumin/Globulin [Mass ratio] 1.1 {ratio} Normal [facility] Comment on above: Performed By: #### G RUBIN, LIPID #### [facility] [address] [address] [address] Stephan Tavares ALP [Catalytic activity/Vol] 74 U/L Normal 46-116 [facility] Comment on above: Performed By: #### G RUBIN, LIPID #### [facility] [address] [address] [address] Stephan Tavares ALT [Catalytic activity/Vol] 40 U/L Normal 14-59 [facility] Comment on above: Performed By: #### G RUBIN, LIPID #### [facility] [address] [address] [address] Stephan Tavares Anion gap [Moles/Vol] 16.5 mmol/L Normal [facility] Comment on above: Performed By: #### G RUBIN, LIPID #### [facility] [address] [address] [address] Stephan Tavares AST [Catalytic activity/Vol] 45 U/L Critically high 15-37 [facility] Comment on above: Performed By: #### G RUBIN, LIPID #### [facility] [address] [address] [address] Stephan Tavares Bilirubin [Mass/Vol] 0.5 mg/dL Normal 0.2-1.0 [facility] Comment on above: Performed By: #### G RUBIN, LIPID #### [facility] [address] [address] [address] Stephan Tavares Calcium [Mass/Vol] 9.3 mg/dL Normal 8.5-10.1 [facility] Comment on above: Performed By: #### G RUBIN, LIPID #### [facility] [address] [address] [address] Stephan Tavares Chloride [Moles/Vol] 103 mmol/L Normal 98-107 [facility] Comment on above: Performed By: #### G RUBIN, LIPID #### [facility] [address] [address] [address] Stephan Tavares CO2 [Moles/Vol] 24.9 mmol/L Normal 21.0-32.0 [facility] Comment on above: Performed By: #### G RUBIN, LIPID #### [facility] [address] [address] [address] Stephan Tavares Creatinine [Mass/Vol] 0.88 mg/dL Normal 0.55-1.02 [facility] Comment on above: Performed By: #### G RUBIN, LIPID #### [facility] [address] [address] [address] Stephan Tavares EGFR-AF TURKS AND CAICOS ISLANDER >60 Normal >=60 [facility] Comment on above: Performed By: #### G RUBIN, LIPID #### [facility] [address] [address] [address] Stephan aTvares EGFR-NON AF TURKS AND CAICOS ISLANDER >60 Normal >=60 [facility] Comment on above: Performed By: #### G RUBIN, LIPID #### [facility] [address] [address] [address] Stephan Tavares Globulin (S) [Mass/Vol] 3.9 g/dL Normal [facility] Comment on above: Performed By: #### G RUBIN, LIPID #### [facility] [address] [address] [address] Stephan Tavares Glucose [Mass/Vol] 79 mg/dL Normal 74-106 [facility] Comment on above: Performed By: #### G RUBIN, LIPID #### [facility] [address] [address] [address] Stephan Tavares Potassium [Moles/Vol] 3.4 mmol/L Critically low 3.5-5.1 [facility] Comment on above: Performed By: #### G RUBIN, LIPID #### [facility] [address] [address] [address] Stephan Tavares Protein [Mass/Vol] 8.3 g/dL Critically high 6.4-8.2 [facility] Comment on above: Performed By: #### G RUBIN, LIPID #### [facility] [address] [address] [address] Stephan Tavares Sodium [Moles/Vol] 141 mmol/L Normal 136-145 [facility] Comment on above: Performed By: #### G RUBIN, LIPID #### [facility] [address] [place], [place] [address] Dr. Setphan Tavares Urea nitrogen [Mass/Vol] 10.0 mg/dL Normal 7.0-18.0 [facility] Comment on above: Performed By: #### G RUBIN, LIPID #### [facility] [address] [place], [place] [address] Dr. Stephan Tavares Urea nitrogen/Creatinine [Mass ratio] 11.4 mg/mg Normal [facility] [facility] Comment on above: Performed By: #### G RUBIN, LIPID #### [facility] [address] [place], [place] [address] Dr. Stephan Tavares US PELVIS TRANSVAGon 023 US PELVIS TRANSVAG EXAMINATION: US PELVIS TRANSVAG HISTORY: UNSPECIFIED ABDOMINAL PAIN ; left [...] by: ALVERTO PHAM Date: 2022-06-09 17:04 Normal [facility] HLA B 27on 05-28-2022 HLA-B27 Negative Normal [facility] Comment on above: Result Comment: HLA- B*27 Negative B27 allele interpretation for all loci based on IMGT/HLA database version 3.44 This test was developed and its performance characteristics determined by [employer]. It has not been cleared or approved by the Food and Drug Administration. [facility] CLIA ID Number [id number] . This test was performed using PCR (Polymerase Chain Reaction)/SSOP (Sequence Specific Oligonucleotide Probes) technique. SBT (Sequence Based Typing) and/or SSP (Sequence Specific Primers) may be used as supplemental methods when necessary. Please contact [facility] Customer Service at if you have any questions. . Director of HLA Laboratory Dr Tino Sampson, PhD Performed By: #### B MP, MG #### [facility] [address] [address] [address] Stephan Tavares LYME DISEASE, WESTERN BLOTon 05-27-2022 IgG P18 Ab. Absent [facility] Comment on above: Performed By: #### B MP, MG #### [facility] [address] [place] [address] Dr. Stephan Tavares IgG P23 Ab. Absent Normal [facility] Comment on above: Performed By: #### B MP, MG #### [facility] [address] [place] [address] Dr. Stephan Tavares IgG P28 Ab. Absent [facility] Comment on above: Performed By: #### B MP, MG #### [facility] [address] [place] [address] Dr. Stephan Tavares IgG P30 Ab. Absent [facility] Comment on above: Performed By: #### B MP, MG #### [facility] [address] [place] [address] Dr. Stephan Tavares IgG P39 Ab. Absent [facility] Comment on above: Performed By: #### B MP, MG #### [facility] [address] [place] [address] Dr. Stephan Tavarse IgG P41 Ab. Present Abnormal [facility] Comment on above: Performed By: #### B MP, MG #### [facility] [address] [place] [address] Dr. Stephan Tavares IgG P45 Ab. Absent [facility] Comment on above: Performed By: #### B MP, MG #### [facility] [address] [place] [address] Dr. Stephan Tavares IgG P58 Ab. Absent [facility] Comment on above: Performed By: #### B MP, MG #### [facility] [address] [place] [address] Dr. Stephan Tavares IgG P66 Ab. Absent [facility] Comment on above: Performed By: #### B MP, MG #### [facility] [address] [address] [address] Stephan Tavares IgG P93 Ab. Absent Normal [facility] Comment on above: Performed By: #### B MP, MG #### [facility] [address] [place] [address] Dr. Stephan Tavares IgM P23 Ab. Present Abnormal [facility] Comment on above: Performed By: #### B MP, MG #### [facility] [address] [address] [address] Stephan Tavares IgM P39 Ab. Absent Normal [facility] Comment on above: Performed By: #### B MP, MG #### [facility] [address] [place] [address] Dr. Stephan Tavares IgM P41 Ab. Present Abnormal [facility] Comment on above: Performed By: #### B MP, MG #### [facility] [address] [place] [address] Dr. Stephan Tavares Lyme IgG WB Interp. Negative Normal [facility] Comment on above: Result Comment: Posi tive: 5 of the following Borrelia-specific bands: 18,23,28,30,39,41,45,58, 66, and 93. Negative: No bands or banding patterns which do not meet positive criteria. Performed By: #### B MP, MG #### [facility] [address] [place] [address] Dr. Stephan Tavares Lyme IgM WB Interp. Positive Abnormal [facility] Comment on above: Result Comment: Note : [...] are those recommended by CDC/ASTPHLD. p23=Osp C, y26=ulbdcnycm . Note: Sera from individuals with the following may cross react in the Lyme Line Blot assays: other spirochetal diseases (periodontal disease, leptospirosis, relapsing fever, yaws, and pinta); connective autoimmune (Rheumatoid Arthritis and Systemic Lupus Erythematosus and also individuals with Antinuclear Antibody); other infections ([place] Spotted Fever; Prabhakar-Rangel Virus, and Cytomegalovirus). . . Please Note: Lyme immunoblot alone is not recommended for the diagnosis of Lyme disease. Current guidelines recommend the use of a two-tiered approach to Lyme serology testing to improve the sensitivity and specificity of testing. [facility] test code 794121 Lyme Disease Serology with Reflex to aid in the diagnosis of Lyme Disease. Performed By: #### B MP, MG #### [facility] [address] [place] [address] Dr. Stephan Tavares MISAEL EIA W/REFLEX 9 BIOMARKER Son 05-25-2022 MISAEL Direct Negative Normal Negative [facility] Comment on above: Performed By: #### A NARF9 #### [facility] [address] [place] [address] Dr. Stephan Tavares SLE PROFILE Aon 05-25-2022 Anti-DNA (DS) Ab Qn 2 IU/mL Normal 0-9 [facility] Comment on above: Result Comment: Nega tive <5 Equivocal 5 - 9 Positive >9 Performed By: #### S RONALDO #### [facility] [address] [place] [address] Dr. Stephan Tavares Antichromatin Antibodies <0.2 Normal 0.0-0.9 [facility] Comment on above: Performed By: #### S RONALDO #### [facility] [address] [place] [address] Dr. Stephan Tavares RA Latex Turbid. <10.0 Normal <14.0 [facility] Comment on above: Performed By: #### S RONALDO #### [facility] [address] [place] [address] Dr. Stephan Tavares PUBLIC RELATIONS COUNSELOR Antibodies 0.3 AI Normal 0.0-0.9 [facility] Comment on above: Performed By: #### S RONALDO #### [facility] [address] [place] [address] Dr. Stephan Tavares Sjogren's Anti-SS-A <0.2 Normal 0.0-0.9 [facility] Comment on above: Performed By: #### S RONALDO #### [facility] [address] [address] [address] Stephan Tavares Sjogren's Anti-SS-B <0.2 Normal 0.0-0.9 [facility] Comment on above: Performed By: #### S RONALDO #### [facility] [address] [place] [address] Dr. Stephan Tavares Du Antibodies <0.2 Normal 0.0-0.9 [facility] Comment on above: Performed By: #### S RONALDO #### [facility] [address] [place] [address] Dr. Stephan Tavares CBC AUTO DIFFon 05-22-2022 BASO # 0.0 103/ul Normal 0.0-0.1 [facility] Comment on above: Performed By: #### C BC #### [facility] [address] [place] [address] Dr. Stephan Tavares Basophils/100 WBC (Bld) 1.0 % Normal 0.2-2.0 [facility] Comment on above: Performed By: #### C BC #### [facility] [address] [place] [address] Dr. Stephan Tavares EO # 0.1 103/ul Normal 0.0-0.7 [facility] Comment on above: Performed By: #### C BC #### [facility] [address] [place] [address] Dr. Stephan Tavares Eosinophils/100 WBC (Bld) 1.3 % Normal 0.9-7.0 [facility] Comment on above: Performed By: #### C BC #### [facility] [address] [place] [address] Dr. Stephan Tavares Erythrocyte distribution width (RBC) [Ratio] 13.3 % Normal 11.0-15.0 [facility] Comment on above: Performed By: #### C BC #### [facility] [address] [place] [address] Dr. Stephan Tavares Hematocrit (Bld) [Volume fraction] 36.7 % Normal 36.0-48.0 [facility] Comment on above: Performed By: #### C BC #### [facility] [address] [place] [address] Dr. Stephan Tavares Hemoglobin (Bld) [Mass/Vol] 12.6 g/dL Normal 12.0-16.0 [facility] Comment on above: Performed By: #### C BC #### [facility] [address] [place] [address] Dr. Stephan Tavares IG # 0.00 10e3/ul Normal 0.00-0.03 [facility] Comment on above: Performed By: #### C BC #### [facility] [address] [place] [address] Dr. Stephan Tavares IG % 0.0 % Normal 0.0-0.5 [facility] Comment on above: Performed By: #### C BC #### [facility] [address] [place] [address] Dr. Stephan Tavares LYMPH # 1.2 103/ul Normal 1.2-3.8 [facility] Comment on above: Performed By: #### C BC #### [facility] [address] [place] [address] Dr. Stephan Tavares Lymphocytes/100 WBC (Bld) 30.9 % Normal 20.5-60.0 [facility] Comment on above: Performed By: #### C BC #### [facility] [address] [place] [address] Dr. Stephan Tavares MANUAL DIFF REQ NO Normal [facility] Comment on above: Performed By: #### C BC #### [facility] [address] [place] [address] Dr. Stephan Tavares MCH (RBC) [Entitic mass] 30.6 pg Normal 26.7-34.0 [facility] Comment on above: Performed By: #### C BC #### [facility] [address] [place] [address] Dr. Stephan Tavares MCHC (RBC) [Mass/Vol] 34.3 g/dL Normal 29.9-35.2 [facility] Comment on above: Performed By: #### C BC #### [facility] [address] [address] [address] Stephan Tavares MCV (RBC) [Entitic vol] 89.1 fL Normal 81.0-99.0 [facility] Comment on above: Performed By: #### C BC #### [facility] [address] [address] [address] Stephan Tavares MONO # 0.2 103/ul Critically low 0.3-0.8 [facility] Comment on above: Performed By: #### C BC #### [facility] [address] [address] [address] Stephan Tavares Monocytes/100 WBC (Bld) 5.9 % Normal 1.7-12.0 [facility] Comment on above: Performed By: #### C BC #### [facility] [address] [address] [address] Stephan Tavares NEUT # 2.4 103/ul Normal 1.4-6.5 [facility] Comment on above: Performed By: #### C BC #### [facility] [address] [address] [address] Stephan Tavares Neutrophils/100 WBC (Bld) 60.9 % Normal 43.0-75.0 [facility] Comment on above: Performed By: #### C BC #### [facility] [address] [address] [address] Stephan Tavares Platelet mean volume (Bld) [Entitic vol] 10.9 fL Normal 9.5-13.5 [facility] Comment on above: Performed By: #### C BC #### [facility] [address] [address] [address] Stephan Tavares PLT 250 103/ul Normal 150-450 [facility] Comment on above: Performed By: #### C BC #### [facility] [address] [address] [address] Stephan Tavares RBC 4.12 106/ul Critically low 4.20-5.40 [facility] Comment on above: Performed By: #### C BC #### [facility] [address] [place] [address] Dr. Stephan Tavares WBC 3.9 103/ul Critically low 4.0-11.0 [facility] Comment on above: Performed By: #### C BC #### [facility] [address] [place] [address] Dr. Stephan Tavares CRPon 05-22-2022 CRP [Mass/Vol] mg/L Normal <=1.0 [facility] Comment on above: Performed By: #### G RUBIN, LIPID #### [facility] [address] [place] [address] Dr. Stephan Tavares SED RATE WESTERGRENon 2022 SED RATE 4 mm/hr Normal <=20 [facility] Comment on above: Performed By: #### S EDR #### [facility] [address] [place] [address] Dr. Stephan Tavares URIC ACID SERUMon 05-22-2022 Urate [Mass/Vol] 4.5 mg/dL Normal 2.6-6.0 [facility] Comment on above: Performed By: #### G RUBIN, LIPID #### [facility] [address] [place] [address] Dr. Stephan Tavares EGD - THERAPEUTIC, EUS, OR T UBE INTERVENTIONSon 03-06-2022 [facility] US PELVIS AND TRANSVAGon US PELVIS [...] BALDOMERO MARCELO Date: 2022-03-03 16:24 Normal [facility] CBC AUTO DIFFon 02-17-2022 BASO # 0.0 103/ul Normal 0.0-0.1 [facility] Comment on above: Performed By: #### G RUBIN, LIPID #### [facility] [address] [place] [address] Dr. Stephan Tavares Basophils/100 WBC (Bld) 0.8 % Normal 0.2-2.0 [facility] Comment on above: Performed By: #### G RUBIN, LIPID #### [facility] [address] [place] [address] Dr. Stephan Tavares EO # 0.1 103/ul Normal 0.0-0.7 [facility] Comment on above: Performed By: #### G RUBIN, LIPID #### [facility] [address] [place] [address] Dr. Stephan Tavares Eosinophils/100 WBC (Bld) 2.0 % Normal 0.9-7.0 [facility] Comment on above: Performed By: #### G RUBIN, LIPID #### [facility] [address] [place] [address] Dr. Stephan Tavares Erythrocyte distribution width (RBC) [Ratio] 13.2 % Normal 11.0-15.0 [facility] Comment on above: Performed By: #### G RUBIN, LIPID #### [facility] [address] [place] [address] Dr. Stephan Tavares Hematocrit (Bld) [Volume fraction] 36.2 % Normal 36.0-48.0 [facility] Comment on above: Performed By: #### G RUBIN, LIPID #### [facility] [address] [place] [address] Dr. Stephan Tavares Hemoglobin (Bld) [Mass/Vol] 12.6 g/dL Normal 12.0-16.0 [facility] Comment on above: Performed By: #### G RUBIN, LIPID #### [facility] [address] [place] [address] Dr. Stephan Tavares IG # 0.00 10e3/ul Normal 0.00-0.03 [facility] Comment on above: Performed By: #### G RUBIN, LIPID #### [facility] [address] [place] [address] Dr. Stephan Tavares IG % 0.0 % Normal 0.0-0.5 [facility] Comment on above: Performed By: #### G RUBIN, LIPID #### [facility] [address] [address] [address] Stephan Tavares LYMPH # 2.3 103/ul Normal 1.2-3.8 [facility] Comment on above: Performed By: #### G RUBIN, LIPID #### [facility] [address] [address] [address] Stephan Tavares Lymphocytes/100 WBC (Bld) 46.3 % Normal 20.5-60.0 [facility] Comment on above: Performed By: #### G RUBNI, LIPID #### [facility] [address] [address] [address] Stephan Tavares MANUAL DIFF REQ NO Normal [facility] Comment on above: Performed By: #### G RUBIN, LIPID #### [facility] [address] [place] [address] Dr. Stephan Tavares MCH (RBC) [Entitic mass] 29.2 pg Normal 26.7-34.0 [facility] Comment on above: Performed By: #### G RUBIN, LIPID #### [facility] [address] [place] [address] Dr. Stephan Tavares MCHC (RBC) [Mass/Vol] 34.8 g/dL Normal 29.9-35.2 [facility] Comment on above: Performed By: #### G RUBIN, LIPID #### [facility] [address] [place] [address] Dr. Stephan Tavares MCV (RBC) [Entitic vol] 84.0 fL Normal 81.0-99.0 [facility] Comment on above: Performed By: #### G RUBIN, LIPID #### [facility] [address] [place] [address] Dr. Stephan Tavares MONO # 0.4 103/ul Normal 0.3-0.8 [facility] Comment on above: Performed By: #### G RUBIN, LIPID #### [facility] [address] [address] [address] Stephan Tavares Monocytes/100 WBC (Bld) 8.7 % Normal 1.7-12.0 [facility] Comment on above: Performed By: #### G RUBIN, LIPID #### [facility] [address] [address] [address] Stephan Tavares NEUT # 2.1 103/ul Normal 1.4-6.5 [facility] Comment on above: Performed By: #### G RUBIN, LIPID #### [facility] [address] [address] [address] Stephan Tavares Neutrophils/100 WBC (Bld) 42.2 % Critically low 43.0-75.0 [facility] Comment on above: Performed By: #### G RUBIN, LIPID #### [facility] [address] [address] [address] Stephan Tavares Platelet mean volume (Bld) [Entitic vol] 11.1 fL Normal 9.5-13.5 [facility] Comment on above: Performed By: #### G RUBIN, LIPID #### [facility] [address] [address] [address] Stephan Tavares PLT 228 103/ul Normal 150-450 [facility] Comment on above: Performed By: #### G RUBIN, LIPID #### [facility] [address] [address] [address] Stephan Tavares RBC 4.31 106/ul Normal 4.20-5.40 [facility] Comment on above: Performed By: #### G RUBIN, LIPID #### [facility] [address] [address] [address] Stephan Tavares WBC 5.1 103/ul Normal 4.0-11.0 [facility] Comment on above: Performed By: #### G RUBIN, LIPID #### [facility] [address] [address] [address] Stephan Tavares MAGNESIUMon 02-17-2022 Magnesium [Mass/Vol] 1.8 mg/dL Normal 1.8-2.4 [facility] Comment on above: Performed By: #### B MP, MG #### [facility] [address] [place] [address] Dr. Stephan Tavares PROF CHEM 8 (BAS METB)on Anion gap [Moles/Vol] 16.1 mmol/L Normal [facility] Comment on above: Performed By: #### B MP, MG #### [facility] [address] [place] [address] Dr. Stephan Tavares Calcium [Mass/Vol] 8.7 mg/dL Normal 8.5-10.1 [facility] Comment on above: Performed By: #### B MP, MG #### [facility] [address] [place] [address] Dr. Stephan Tavares Chloride [Moles/Vol] 104 mmol/L Normal 98-107 [facility] Comment on above: Performed By: #### B MP, MG #### [facility] [address] [place] [address] Dr. Stephan Tavares CO2 [Moles/Vol] 22.0 mmol/L Normal 21.0-32.0 [facility] Comment on above: Performed By: #### B MP, MG #### [facility] [address] [place] [address] Dr. Stephan Tavares Creatinine [Mass/Vol] 0.74 mg/dL Normal 0.55-1.02 [facility] Comment on above: Performed By: #### B MP, MG #### [facility] [address] [place] [address] Dr. Stephan Tavares EGFR-AF TURKS AND CAICOS ISLANDER >60 Normal >=60 [facility] Comment on above: Performed By: #### B MP, MG #### [facility] [address] [place] [address] Dr. Stephan Tavares EGFR-NON AF TURKS AND CAICOS ISLANDER >60 Normal >=60 [facility] Comment on above: Performed By: #### B MP, MG #### [facility] [address] [place] [address] Dr. Stephan Tavares Glucose [Mass/Vol] 88 mg/dL Normal 74-106 [facility] Comment on above: Performed By: #### B MP, MG #### [facility] [address] [place] [address] Dr. Stephan Tavares Potassium [Moles/Vol] 4.1 mmol/L Normal 3.5-5.1 [facility] Comment on above: Result Comment: spec imen hemolysed. result could be spurious. suggest repeat. Performed By: #### B MP, MG #### [facility] [address] [address] [address] Stephan Tavares Sodium [Moles/Vol] 138 mmol/L Normal 136-145 [facility] Comment on above: Performed By: #### B MP, MG #### [facility] [address] [address] [address] Stephan Tavares Urea nitrogen [Mass/Vol] 12.0 mg/dL Normal 7.0-18.0 [facility] Comment on above: Performed By: #### B MP, MG #### [facility] [address] [address] [address] Stephan Tavares Urea nitrogen/Creatinine [Mass ratio] 16.2 mg/mg Normal [facility] Comment on above: Performed By: #### B MP, MG #### [facility] [address] [address] [address] Stephan Tavares Basic metabolic 2000 panelon 01-28-2022 Anion gap [Moles/Vol] 10 mmol/L 9 - 18 mmol/L [facility] Calcium [Mass/Vol] 9.3 mg/dL 8.5 - 10.2 mg/dL [facility] Chloride [Moles/Vol] 105 mmol/L 97 - 105 mmol/L [facility] CO2 [Moles/Vol] 22 mmol/L 22 - 30 mmol/L [facility] Creatinine [Mass/Vol] 0.68 mg/dL 0.58 - 0.96 mg/dL [facility] Estimated Glomerular Filtration Rate 119 mL/min/1.73m >=60 mL/min/1.73m [facility] Glucose [Mass/Vol] 77 mg/dL 74 - 99 mg/dL [facility] Potassium [Moles/Vol] 4.3 mmol/L 3.7 - 5.1 mmol/L [facility] Sodium [Moles/Vol] 137 mmol/L 136 - 144 mmol/L [facility] Urea nitrogen [Mass/Vol] 9 mg/dL 7 - 21 mg/dL [facility] CBC panel Auto (Bld)on 01-28 Erythrocyte distribution width (RBC) [Ratio] 13.3 % 11.5 - 15.0 % [facility] Hematocrit (Bld) [Volume fraction] 42.9 % 36.0 - 46.0 % [facility] Hemoglobin (Bld) [Mass/Vol] 14.6 g/dL 11.5 - 15.5 g/dL [facility] MCH (RBC) [Entitic mass] 29.8 pg 26.0 - 34.0 pg [facility] MCHC (RBC) [Mass/Vol] 34.0 g/dL 30.5 - 36.0 g/dL [facility] MCV (RBC) [Entitic vol] 87.6 fL 80.0 - 100.0 fL [facility] Nucleated RBC (Bld) [#/Vol] <0.01 k/uL [facility] Platelet mean volume (Bld) [Entitic vol] 11.4 fL 9.0 - 12.7 fL [facility] Platelets (Bld) [#/Vol] 247 10*3/uL 150 - 400 k/uL [facility] RBC (Bld) [#/Vol] 4.90 10*6/uL 3.90 - 5.20 m/uL [facility] WBC (Bld) [#/Vol] 4.05 10*3/uL 3.70 - 11.00 k/u L [facility] EKGon 01-28-2022 Atrial Rate 61 BPM [facility] Calculated P Pompeii 76 degrees [facility] Calculated R Pompeii 73 degrees [facility] Calculated T Pompeii 57 degrees [facility] P-R Interval 144 ms [facility] QRS Duration 86 ms [facility] QT Interval 424 ms [facility] QTC Calculation (Bazett) 426 ms [facility] Ventricular Rate [address] [facility] TYPE AND SCREEN,30 DAYon ABO O [facility] HIstorical Ab Scr Status Negative [facility] Rh Nom (Bld) Positive [facility] EGD - THERAPEUTIC, EUS, OR T UBE INTERVENTIONSon 12-25-2021 [facility] METANEPHRINES PLASMA FREEon 11-01-2021 Metanephrine, Pl <10.0 Normal 0.0-88.0 [facility] Comment on above: Performed By: #### G RUBIN, LIPID #### [facility] [address] [place] [address] Dr. Stephan Tavares Normetanephrine, Pl 19.4 pg/mL Normal 0.0-210.1 [facility] Comment on above: Performed By: #### G RUBIN, LIPID #### [facility] [address] [place] [address] Dr. Stephan Tavares CORTISOLon 10-28-2021 Cortisol 4.6 ug/dL Normal [facility] Comment on above: Result Comment: Wesley isol AM 6.2 - 19.4 Cortisol PM 2.3 - 11.9 Performed By: #### C ORTISO #### [facility] [address] [place] [address] Dr. Stephan Tavares CBC AUTO DIFFon 10-27-2021 BASO # 0.0 103/ul Normal 0.0-0.1 [facility] Comment on above: Performed By: #### G RUBIN, LIPID #### [facility] [address] [place] [address] Dr. Stephan Tavares Basophils/100 WBC (Bld) 0.5 % Normal 0.2-2.0 [facility] Comment on above: Performed By: #### G RUBIN, LIPID #### [facility] [address] [place] [address] Dr. Stephan Tavares EO # 0.0 103/ul Normal 0.0-0.7 [facility] Comment on above: Performed By: #### G RUBIN, LIPID #### [facility] [address] [place] [address] Dr. Stephan Tavares Eosinophils/100 WBC (Bld) 0.5 % Critically low 0.9-7.0 [facility] Comment on above: Performed By: #### G RUBIN, LIPID #### [facility] [address] [place] [address] Dr. Stephan Tavares Erythrocyte distribution width (RBC) [Ratio] 12.8 % Normal 11.0-15.0 [facility] Comment on above: Performed By: #### G RUBIN, LIPID #### [facility] [address] [place] [address] Dr. Stephan Tavares Hematocrit (Bld) [Volume fraction] 37.5 % Normal 36.0-48.0 [facility] Comment on above: Performed By: #### G RUBIN, LIPID #### [facility] [address] [place] [address] Dr. Stephan Tavares Hemoglobin (Bld) [Mass/Vol] 12.9 g/dL Normal 12.0-16.0 [facility] Comment on above: Performed By: #### G RUBIN, LIPID #### [facility] [address] [place] [address] Dr. Stephan Tavares IG # 0.01 10e3/ul Normal 0.00-0.03 [facility] Comment on above: Performed By: #### G RUBIN, LIPID #### [facility] [address] [place] [address] Dr. Stephan Tavares IG % 0.2 % Normal 0.0-0.5 [facility] Comment on above: Performed By: #### G RUBIN, LIPID #### [facility] [address] [place] [address] Dr. Stephan Tavares LYMPH # 1.9 103/ul Normal 1.2-3.8 [facility] Comment on above: Performed By: #### G RUBIN, LIPID #### [facility] [address] [place] [address] Dr. Stephan Tavares Lymphocytes/100 WBC (Bld) 34.6 % Normal 20.5-60.0 [facility] Comment on above: Performed By: #### G RUBIN, LIPID #### [facility] [address] [place] [address] Dr. Stephan Tavares MANUAL DIFF REQ NO Normal [facility] Comment on above: Performed By: #### G RUBIN, LIPID #### [facility] [address] [place] [address] Dr. Stephan Tavares MCH (RBC) [Entitic mass] 30.3 pg Normal 26.7-34.0 [facility] Comment on above: Performed By: #### G RUBIN, LIPID #### [facility] [address] [place] [address] Dr. Stephan Tavares MCHC (RBC) [Mass/Vol] 34.4 g/dL Normal 29.9-35.2 [facility] Comment on above: Performed By: #### G RUBIN, LIPID #### [facility] [address] [place] [address] Dr. Stephan Tavares MCV (RBC) [Entitic vol] 88.0 fL Normal 81.0-99.0 [facility] Comment on above: Performed By: #### G RUBIN, LIPID #### [facility] [address] [place] [address] Dr. Stephan Tavares MONO # 0.4 103/ul Normal 0.3-0.8 [facility] Comment on above: Performed By: #### G RUBIN, LIPID #### [facility] [address] [place] [address] Dr. Stephan Tavares Monocytes/100 WBC (Bld) 6.6 % Normal 1.7-12.0 [facility] Comment on above: Performed By: #### G RUBIN, LIPID #### [facility] [address] [place] [address] Dr. Stephan Tavares NEUT # 3.2 103/ul Normal 1.4-6.5 [facility] Comment on above: Performed By: #### G RUBIN, LIPID #### [facility] [address] [place] [address] Dr. Stephan Tavares Neutrophils/100 WBC (Bld) 57.6 % Normal 43.0-75.0 [facility] Comment on above: Performed By: #### G RUBIN, LIPID #### [facility] [address] [place] [address] Dr. Stephan Tavares Platelet mean volume (Bld) [Entitic vol] 10.6 fL Normal 9.5-13.5 [facility] Comment on above: Performed By: #### G RUBIN, LIPID #### [facility] [address] [place] [address] Dr. Stephan Tavares PLT 249 103/ul Normal 150-450 [facility] Comment on above: Performed By: #### G RUBIN, LIPID #### [facility] [address] [place] [address] Dr. Stephan Tavares RBC 4.26 106/ul Normal 4.20-5.40 [facility] Comment on above: Performed By: #### G RUBIN, LIPID #### [facility] [address] [place] [address] Dr. Stephan Tavares WBC 5.6 103/ul Normal 4.0-11.0 [facility] Comment on above: Performed By: #### G RUBIN, LIPID #### [facility] [address] [place] [address] Dr. Stephan Tavares FREE T3on 10-27-2021 FREE T3 3.25 pg/mlL Normal 2.18-3.98 [facility] Comment on above: Performed By: #### G RUBIN, LIPID #### [facility] [address] [place] [address] Dr. Stephan Tavares FREE T4on 10-27-2021 Free T4 [Mass/Vol] 1.45 ng/dL Normal 0.76-1.46 [facility] Comment on above: Performed By: #### G RUBIN, LIPID #### [facility] [address] [place] [address] Dr. Stephan Tavares PROF CHEM 8 (BAS METB)on Anion gap [Moles/Vol] 13.1 mmol/L Normal [facility] Comment on above: Performed By: #### T SH, FT3, BMP #### [facility] [address] [place] [address] Dr. Stephan Tavares Calcium [Mass/Vol] 8.7 mg/dL Normal 8.5-10.1 [facility] Comment on above: Performed By: #### T SH, FT3, BMP #### [facility] [address] [place] [address] Dr. Stephan Tavares Chloride [Moles/Vol] 104 mmol/L Normal 98-107 [facility] Comment on above: Performed By: #### T SH, FT3, BMP #### [facility] [address] [place] [address] Dr. Stephan Tavares CO2 [Moles/Vol] 25.3 mmol/L Normal 21.0-32.0 [facility] Comment on above: Performed By: #### T SH, FT3, BMP #### [facility] [address] [address] [address] Stephan Tavares Creatinine [Mass/Vol] 0.69 mg/dL Normal 0.55-1.02 [facility] Comment on above: Performed By: #### T SH, FT3, BMP #### [facility] [address] [address] [address] Stephan Tavares EGFR-AF TURKS AND CAICOS ISLANDER >60 Normal >=60 [facility] Comment on above: Performed By: #### T SH, FT3, BMP #### [facility] [address] [place] [address] Dr. Stephan Tavares EGFR-NON AF TURKS AND CAICOS ISLANDER >60 Normal >=60 [facility] Comment on above: Performed By: #### T SH, FT3, BMP #### [facility] [address] [place] [address] Dr. Stephan Tavares Glucose [Mass/Vol] 87 mg/dL Normal 74-106 [facility] Comment on above: Performed By: #### T SH, FT3, BMP #### [facility] [address] [place] [address] Dr. Stephan Tavares Potassium [Moles/Vol] 3.4 mmol/L Critically low 3.5-5.1 [facility] Comment on above: Performed By: #### T SH, FT3, BMP #### [facility] [address] [place] [address] Dr. Stephan Tavares Sodium [Moles/Vol] 139 mmol/L Normal 136-145 [facility] Comment on above: Performed By: #### T SH, FT3, BMP #### [facility] [address] [place] [address] Dr. Stephan Tavares Urea nitrogen [Mass/Vol] 9.0 mg/dL Normal 7.0-18.0 [facility] Comment on above: Performed By: #### T SH, FT3, BMP #### [facility] [address] [place] [address] Dr. Stephan Tavares Urea nitrogen/Creatinine [Mass ratio] 13.0 mg/mg Normal [facility] Comment on above: Performed By: #### T SH, FT3, BMP #### [facility] [id number] Stephan Tavares TSHon 10-27-2021 TSH Qn m[IU]/L Critically low 0.358-3.740 [facility] Comment on above: Performed By: #### G RUBIN, LIPID #### [facility] [id number] Stephan Tavares [address] SINUSES WO CONon 10-07-[address] SINUSES WO CON EXAMINATION: CT SINUSES [...] by: ALVERTO PHAM Date: 2021-10-06 06:19 Normal [facility] Dental Nerve Blockon [id number] 022 Pablo Atwood DO 08/30/2021 4:20 AM Dental Nerve Block Date/Time: 08/30/2021 4:19 AM Performed by: Pablo Atwood DO Authorized by: Pablo Atwood DO Consent: Consent obtained: Verbal Consent given by: Patient Risks, benefits, and alternatives were discussed: yes [place] protocol: Patient identity confirmed: Verbally with patient Indications: Indications: dental pain Location: Block type: Posterior superior alveolar Laterality: Left Procedure details: Syringe type: Controlled syringe Needle gauge: 27 G Anesthetic injected: Bupivacaine 0.5% WITH epi Post-procedure details: Outcome: Anesthesia achieved Procedure completion: Tolerated well, no immediate complications Click Quote Save Work Phone: [facility] [employer] Phone: GLUCOSE BLOODon 08-21-2021 Glucose [Mass/Vol] 79 mg/dL Normal 74-106 [facility] Comment on above: Performed By: #### G RUBIN, LIPID #### [facility] [address] [place] [address] Dr. Stephan Tavares LIPID PROFILEon 08-21-2021 CHOL-HDL RATIO NORM SEE BELOW Normal [facility] Comment on above: Result Comment: 3.3 - 4.4 LOW RISK 4.4 - 7.1 AVERAGE RISK 7.1 - 11.0 MODERATE RISK >11.0 HIGH RISK Performed By: #### G RUBIN, LIPID #### [facility] [address] [place] [address] Dr. Stephan Tavares Cholesterol [Mass/Vol] 163 mg/dL Normal <=200 [facility] Comment on above: Performed By: #### G RUBIN, LIPID #### [facility] [address] [address] [address] Stephan Tavares Cholesterol in HDL [Mass/Vol] 71 mg/dL Critically high 40-60 [facility] Comment on above: Performed By: #### G RUBIN, LIPID #### [facility] [address] [address] [address] Stephan Tavares Cholesterol in LDL [Mass/Vol] 67.8 mg/dL Normal [facility] Comment on above: Performed By: #### G RUBIN, LIPID #### [facility] [address] [address] [address] Stephan Tavares Cholesterol.total/C holesterol in HDL [Mass ratio] 2.3 {ratio} Normal [facility] Comment on above: Performed By: #### G RUBIN, LIPID #### [facility] [address] [address] [address] Stephan Tavares HDL NORMAL > or = 60 mg/dl - LOW CARDIOVASCULAR RISK <40 mg/dl - HIGH CARDIOVASCULAR RISK Normal [facility] Comment on above: Performed By: #### G RUBIN, LIPID #### [facility] [address] [address] [address] Stephan Tavares LDL CALC NORMAL SEE BELOW Normal [facility] Comment on above: Result Comment: <100 mg/dl OPTIMAL 100 - 129 mg/dl NEAR OR ABOVE OPTIMAL 130 - 159 mg/dl BORDERLINE HIGH 160 - 189 mg/dl HIGH >190 mg/dl VERY HIGH Performed By: #### G RUBIN, LIPID #### [facility] [address] [place], [place] [address] Dr. Stephan Tavares Triglyceride [Mass/Vol] 121 mg/dL Normal <=150 [facility] Comment on above: Performed By: #### G RUBIN, LIPID #### [facility] [address] [address] [address] Stephan Tavares VLDL CALC 24.2 mg/dL Normal [facility] Comment on above: Performed By: #### G RUBIN, LIPID #### [facility] [address] [place], [place] [address] Dr. Stephan Tavares US SINGLE QUAD RT [...] ALVERTO PHAM Date: 2021-08-21 17:24 Normal [facility] XR SINUSES 3 VIEWS OR GREATE [...] to suggest acute sinusitis. Electronically authenticated by: ALVERTO PHAM Date: 2021-08-20 13:05 Normal [facility] Glucose - FINGER STICKon Glucose [Mass/Vol] 84 mg/dL [employer] Other VAGINITIS/VAGINOSIS DNA PROB Ryder 08-01-2021 Alea species Positive Abnormal Negative [facility] Comment on above: Performed By: #### G RUBIN, LIPID #### [facility] [address] [address] [address] Stephan Tavares Gardnerella vaginalis Negative Normal Negative [facility] Comment on above: Performed By: #### G RUBIN, LIPID #### [facility] [address] [address] [address] Stephan Tavares Trichomonas vaginalis Negative Normal Negative [facility] Comment on above: Performed By: #### G RUBIN, LIPID #### [facility] [address] [address] [address] Stephan Tavares APTTon 07-27-2021 aPTT Coag (Bld) [Time] 30.9 s [facility] [employer] Comment on above: IV Heparin Therapy Range: 62.0-94.0 CBC with Auto Differentialon 07-27-2021 Absolute Eos # 0.06 [facility] [employer] Absolute Immature Granulocyte <0.03 [facility] [employer] Absolute Lymph # 1.49 [facility] [employer] Lewis # 0.27 [facility] [employer] Basophils (Bld) [#/Vol] 0.04 10*3/uL [facility] Basophils/100 WBC (Bld) 1 % 0 - 2 % [facility] Eosinophils/100 WBC (Bld) 1 % 1 - 4 % [facility] Hematocrit (Bld) [Volume fraction] 38.8 % 36.3 - 47.1 % [facility] Hemoglobin (Bld) [Mass/Vol] 12.7 g/dL 11.9 - 15.1 g/dL [facility] Immature granulocytes/100 WBC (Bld) 0 % 0 [facility] Interpretation and review of laboratory results Abnormal [facility] Lymphocytes/100 WBC (Bld) 36 % 24 - 43 % [facility] MCH (RBC) [Entitic mass] 28.9 pg 25.2 - 33.5 pg [facility] MCHC (RBC) [Mass/Vol] 32.7 g/dL 28.4 - 34.8 g/dL [facility] MCV (RBC) [Entitic vol] 88.4 fL 82.6 - 102.9 fL [facility] Monocytes/100 WBC (Bld) 6 % 3 - 12 % [facility] NRBC Automated 0.0 0.0 per 100 WBC [facility] Platelet distribution width (Bld) [Ratio] 14.5 % High 11.8 - 14.4 % [facility] Platelet mean volume (Bld) [Entitic vol] 10.8 fL 8.1 - 13.5 fL [facility] Platelets (Bld) [#/Vol] 251 10*3/uL [facility] RBC (Bld) [#/Vol] 4.39 10*6/uL 3.95 - 5.11 m/uL [facility] Segmented neutrophils/100 WBC (Bld) 56 % 36 - 65 % [facility] Segs Absolute 2.33 [facility] WBC (Bld) [#/Vol] 4.2 10*3/uL [facility] CT ABDOMEN PELVIS W IV CONTR AST Additional Contrast? Noneon 07-27-2021 No acute abdominal or pelvic abnormality. [facility] EXAMINATION: CT [...] not a suspected or confirmed emergency medical condition->Emergenc y Medical Condition (MA) FINDINGS: Lower Chest: The [...] the pelvis. The uterus has been removed. Peritoneum/Retroper itoneum: The psoas muscles are symmetric. The abdominal aorta is normal in caliber. The inferior vena cava is unremarkable. There is no retroperitoneal or mesenteric adenopathy. Bones/Soft Tissues: The extra-abdominal soft tissues are unremarkable. There is no acute osseous abnormality. [facility] Devon Moura MD - 07/27/2021 EXAMINATION: CT OF THE [...] not a suspected or confirmed emergency medical condition->Emergenc y Medical Condition (MA) FINDINGS: Lower Chest: The [...] the pelvis. The uterus has been removed. Peritoneum/Retroper itoneum: The psoas muscles are symmetric. The abdominal aorta is normal in caliber. The inferior vena cava is unremarkable. There is no retroperitoneal or mesenteric adenopathy. Bones/Soft Tissues: The extra-abdominal soft tissues are unremarkable. There is no acute osseous abnormality. IMPRESSION: No acute abdominal or pelvic abnormality. [employer] Save Work Phone: Radiology Study observation (narrative) [employer] Phone: CT ABDOMEN PELVIS W IV CONTR AST Additional Contrast? NoneOrdered By: Devon Moura on 07-27-2021 [employer] Work Phone: Comprehensive Metabolic Pane l w/ Reflex to MGon 07-27-2021 Albumin [Mass/Vol] 4.7 g/dL 3.5 - 5.2 g/dL [facility] [employer] Albumin/Globulin [Mass ratio] 1.8 {ratio} [facility] ALP (Bld) [Catalytic activity/Vol] 62 U/L 35 - 104 U/L [facility] ALT [Catalytic activity/Vol] 14 U/L 5 - 33 U/L [facility] Anion gap [Moles/Vol] 11 mmol/L 9 - 17 mmol/L [facility] AST [Catalytic activity/Vol] 18 U/L <32 [employer] Bilirubin [Mass/Vol] 0.52 mg/dL 0.3 - 1.2 mg/dL [facility] Calcium [Mass/Vol] 9.5 mg/dL 8.6 - 10.4 mg/dL [facility] Chloride [Moles/Vol] 101 mmol/L 98 - 107 mmol/L [facility] CO2 [Moles/Vol] 25 mmol/L 20 - 31 mmol/L [facility] Creatinine [Mass/Vol] 0.76 mg/dL 0.50 - 0.90 mg/dL [facility] Free PSA/Total PSA [Mass fraction] 7.3 g/dL 6.4 - 8.3 g/dL [facility] GFR >60 >60 mL/min [facility] GFR Non- >60 >60 mL/min [facility] Glucose [Mass/Vol] 86 mg/dL 70 - 99 mg/dL [facility] Interpretation and review of laboratory results Abnormal [facility] Potassium [Moles/Vol] 4.0 mmol/L 3.7 - 5.3 mmol/L [facility] Sodium [Moles/Vol] 137 mmol/L 135 - 144 mmol/L [facility] Urea nitrogen (BldV) [Mass/Vol] 16 mg/dL 6 - 20 mg/dL [facility] Urea nitrogen/Creatinine (Bld) [Mass ratio] 21 High [facility] Laboratory - Chemistry and C hemistry - challengeon 07-27-2021 GFR/1.73 sq M.predicted MDRD (S/P/Bld) [Vol rate/Area] [facility] Comment on above: Average GFR for 30-3 9 years old: 107 mL/min/1.73sq m Chronic Kidney Disease: <60 mL/min/1.73sq m Kidney failure: <15 mL/min/1.73sq m eGFR calculated using average adult body mass. Additional eGFR calculator available at: http://www.[employer]/multiple_crcl_2012.htm Stage 1: Some kidney damage normal GFR Stage 2: Mild kidney damage GFR 60-89 Stage 3: Moderate kidney damage GFR 30-59 Stage 4: Severe kidney damage GFR 15-29 Stage 5: Severe kidney damage GFR <15 ESRD - chronic treatment by dialysis or transplant Lactic Acidon 07-27-2021 Lactate [Moles/Vol] 1 mmol/L 0.5 - 2.2 mmol/L [facility] Lipaseon 07-27-2021 Lipase [Catalytic activity/Vol] 49 U/L 13 - 60 U/L [facility] Microscopic Urinalysison - [facility] Epithelial Cells UA 0 TO 2 [facility] RBC, UA 0 TO 2 [facility] WBC, UA 0 TO 2 [facility] No Panel Informationon 07-27 [facility] Protime-INRon 07-27-2021 INR Coag (Bld) [Relative time] 1.1 {INR} [facility] Comment on above: Non-therapeutic Range: INR = 0.9-1.2 Therapeutic Range: Moderate Anticoagulant Intensity: INR = 2.0-3.0 High Anticoagulant Intensity: INR = 2.5-3.5 PT Coag (PPP) [Time] 14.2 s [facility] Urinalysis with Reflex to Cu ltureon 07-27-2021 Bilirubin Urine Negative NEGATIVE [facility] Color, UA Yellow Yellow [facility] Glucose, Ur Negative NEGATIVE [facility] Ketones Ql (U) Negative NEGATIVE [facility] Leukocyte esterase Test strip Ql (U) Negative NEGATIVE [facility] Nitrite, Urine Negative NEGATIVE [facility] pH, UA 7.5 [facility] Protein, UA Negative NEGATIVE [facility] Specific [place], UA 1.010 [facility] Turbidity UA Clear Clear [facility] Urine Hgb Negative NEGATIVE [facility] Urobilinogen, Urine Normal Normal [facility] XR CHEST PORTABLEon 07-28-19 No acute process. [facility] EXAMINATION: ONE XRAY VIEW OF THE [...] The osseous structures are without acute process. [facility] Goldie Grande MD - 07/27/2021 EXAMINATION: [...] without acute process. IMPRESSION: No acute process. [employer] Phone: Radiology Study observation (narrative) [employer] Phone: XR CHEST PORTABLEOrdered By: Goldie Grande on 07-27-2021 [employer] Phone: XR HIP GENERAL 3V PELV/AP/LA T RIGHTon 06-18-2021 [facility] XR chest 2V*on 03-31-2021 XR chest 2V* [facility] [employer] Other XR chest 2V* [facility] [employer] Other XR chest 2V* [address] [place] [address] [employer] Other XR chest 2V* [place] [address] [facility] [employer] Other XR chest 2V* XRay Report [employer] Other XR chest 2V* Signed [employer] Other XR chest 2V* Patient: Abbey Garcia MR#: [id number] [place] [employer] Other XR chest 2V* : 1990 Acct:[id number] [employer] Other XR chest 2V* Age/Sex: 30 / F ADM Date: 03/31/21 [employer] Other XR chest 2V* Loc: XDCLY Room: Type: [facility] [employer] Other XR chest 2V* Attending Dr: Shanna YUNG [employer] Other XR chest 2V* Ordering Provider: SHANNA JUNE [employer] Other XR chest 2V* Date of Service: 03/31/21 [employer] Other XR chest 2V* XR/XR chest 2V*: SOB (shortness of breath) [employer] Other XR chest 2V* Copies to: SHANNA JUNE [facility] [employer] Other XR chest 2V* PA AND LATERAL CHEST: [employer] Other XR chest 2V* CLINICAL HISTORY: Wheezing and shortness of breath [employer] Other XR chest 2V* COMPARISON: 03/05/2020 [employer] Other XR chest 2V* There is no focal parenchymal consolidation, effusion or pneumothorax. The cardiac, hilar and [employer] Other XR chest 2V* mediastinal silhouettes are within normal limits. There is no vascular congestion. The [employer] Other XR chest 2V* visualized bony thorax is intact. [employer] Other XR chest 2V* XR/XR chest 2V* [employer] Other XR chest 2V* IMPRESSION: [employer] Other XR chest 2V* NO ACUTE CARDIOPULMONARY ABNORMALITY. [employer] Other XR chest 2V* Impression dictated by: Maricruz Hutchinson M.D.03/31/2021 11:32 AM [employer] Other XR chest 2V* Dictation Location: [facility]10 [employer] Other XR chest 2V* Transcribed By: PWS 03/31/21 1132 [employer] Other XR chest 2V* Dictated By: Maricruz Hutchinson MD 03/31/21 1131 [employer] Other XR chest 2V* Signed By: [employer] Other XR chest 2V* 03/31/21 1132 [employer] Other Urinalysis - AUTOMATEDon Appearance (U) clear [employer] Other Bilirubin Ql (U) Negative [employer] Other Color (U) yellow [employer] Other Glucose Ql (U) Negative [employer] Other Hemoglobin Ql (U) Negative [email or web address] Other Ketones Ql (U) Negative [employer] Other Leukocyte esterase Test strip Ql (U) Negative [employer] Other Nitrite Ql (U) Negative [employer] Other pH (U) 7.0 [pH] [employer] Other Protein Ql (U) Negative [employer] Other Specific gravity (U) [Rel density] 1.015 [employer] Other Urobilinogen (U) [Mass/Vol] 0.2 mg/dL [employer] Other XR FINGER RIGHT (MIN 2 VIEWS )Ordered By: Kimberly Olmedo on 12-14-2020 No acute osseous abnormality. [employer] Phone: EXAMINATION: THREE XRAY VIEWS OF THE RIGHT FINGERS 12/14/2020 3:26 pm COMPARISON: None. HISTORY: ORDERING SYSTEM PROVIDED HISTORY: shut right thumb in car door TECHNOLOGIST PROVIDED HISTORY: shut right thumb in car door FINDINGS: There is no evidence of acute fracture. There is normal alignment. No acute joint abnormality. No focal osseous lesion. No focal soft tissue abnormality. [employer] Phone: Yusuf, Mhpn Incoming Radiant Results From [employer]/Pacs - 12/14/2020 3:33 PM EDT EXAMINATION: THREE [...] tissue abnormality. IMPRESSION: No acute osseous abnormality. [employer] Phone: [employer] Phone: CBC, EDIF, PLATELETOrdered B y: Juanito Laird on 07-02-2020 ABSOLUTE BASOPHIL COUNT 0.0 10*3/uL 0.0 - 0.2 10*3/uL [facility] Basophils/100 WBC (Bld) 0.6 % 0.0 - 2.0 % [facility] Differential cell count method Nom (Bld) AUTO DIFF % [facility] Eosinophils (Bld) [#/Vol] 0.10 10*3/uL 0.0 - 0.7 10*3/uL [facility] Eosinophils/100 WBC (Bld) 1.3 % 0.0 - 11.0 % [facility] Erythrocyte distribution width (RBC) [Ratio] 14.1 % 11.5 - 14.5 % [facility] Hematocrit (Bld) [Volume fraction] 36.2 % 36.0 - 48.0 % [facility] Hemoglobin (Bld) [Mass/Vol] 12.1 g/dL [facility] Lymphocytes (Bld) [#/Vol] 1.70 10*3/uL 1.2 - 3.4 10*3/uL [facility] Lymphocytes/100 WBC (Bld) 23.4 % 20.0 - 55.0 % [facility] MCH (RBC) [Entitic mass] 28.1 pg 26.0 - 35.0 PG [facility] MCHC (RBC) [Mass/Vol] 33.4 g/dL [facility] MCV (RBC) [Entitic vol] 84.1 fL [facility] Monocytes (Bld) [#/Vol] 0.5 10*3/uL 0.0 - 0.7 10*3/uL [facility] Monocytes/100 WBC (Bld) 6.4 % 0.0 - 10.0 % [facility] Neutrophils (Bld) [#/Vol] 5.0 10*3/uL 1.4 - 6.5 10*3/uL [facility] Neutrophils/100 WBC (Bld) 68.3 % 37.0 - 75.0 % [facility] Platelet mean volume (Bld) [Entitic vol] 8.9 fL [facility] Platelets (Bld) [#/Vol] 295 10*3/uL 130.0 - 400.0 10*3/uL [facility] RBC (Bld) [#/Vol] 4.31 10*6/uL 4.0 - 5.4 10*6/u L [facility] WBC (Bld) [#/Vol] 7.3 10*3/uL 3.6 - 11.0 10*3/u L [facility] COMPREHENSIVE METABOLIC PANE LOrdered By: Juanito Larid on 07-02-2020 Albumin [Mass/Vol] 4.1 G/dl 3.5 - 5.0 G/dl [facility] Albumin/Globulin [Mass ratio] 1.3 {ratio} [facility] ALP [Catalytic activity/Vol] 52 U/L [facility] ALT [Catalytic activity/Vol] 16 U/L [facility] AST [Catalytic activity/Vol] 29 U/L [facility] Bilirubin [Mass/Vol] 0.5 mg/dL [facility] Calcium [Mass/Vol] 9.2 mg/dL [facility] Chloride [Moles/Vol] 102 mmol/L [facility] CO2 [Moles/Vol] 22 mmol/L [facility] Creatinine [Mass/Vol] 0.59 mg/dL [facility] GFR COMMENT Average GFR for 30-39 years old = 109. [facility] Comment on above: Chronic Kidney disea se, GFR = <60. Kidney failure, GFR = <15. The GFR estimate is not adjusted for extreme body surface area or acute process, nor has it been validated for women or ethnic groups other than and . GFR/1.73 sq M.predicted among blacks MDRD (S/P/Bld) [Vol rate/Area] mL/min/{1.73_m2} ml/min/1.73sq.m [facility] GFR/1.73 sq M.predicted among non-blacks MDRD (S/P/Bld) [Vol rate/Area] mL/min/{1.73_m2} ml/min/1.73sq.m [facility] Glucose post fast [Mass/Vol] 84 mg/dL [facility] Comment on above: NORMAL <100 mg/dL PREDIABETES 101-126 mg/dL DIABETES 126 mg/dL or higher Interpretation and review of laboratory results Abnormal [email or web address] Potassium [Moles/Vol] 4.1 mmol/L [employer] Protein [Mass/Vol] 7.3 g/dL [facility] Sodium [Moles/Vol] 134 mmol/L Low [facility] Urea nitrogen [Mass/Vol] 15 mg/dL [facility] Dout[facility] CT ABDOMEN/PELVIS WITHOUT CO NTRASTOrdered By: Juanito Laird on 07-02-2020 IMPRESSION: CT abdomen and CT pelvis studies demonstrate findings compatible with hepatic cysts as described, similar to prior study. Finding is compatible with complex right adnexal cyst as noted. Correlate for mild gastroenteritis. [facility] EXAMINATION: CT ABDOMEN/PELVIS WITHOUT CONTRAST HISTORY: Abdominal [...] bowel content. Bony structures are grossly intact. [employer] User, Interfaces - 07/02/2020 2:22 PM EDT [...] cyst as noted. Correlate for mild gastroenteritis. [facility] HCG ( test) Ql (U)O rdered By: Vaughn Ceja on 07-02-2020 [facility] HCG QUALITATIVE, URINEOrdere d By: Vaughn Ceja on 07-02-2020 HCG ( test) Ql (U) Negative NEGATIVE [facility] LACTATE, BLOODOrdered By: Catherine Laird on 07-02-2020 Lactate [Moles/Vol] 1.0 mmol/L [facility] LIPASEOrdered By: Juanito rosen on 07-02-2020 Lipase [Catalytic activity/Vol] 32 U/L 23 - 300 U/L [facility] No Panel InformationOrdered By: Juanito Laird on 07-02-2020 [facility] PROTIME-INROrdered By: Gautam Laird on 07-02-2020 INR Coag (PPP) [Relative time] 0.95 {INR} [facility] Comment on above: 2.0-3.0 THERAPEUTIC RANGE 2.5-3.5 MECHANICAL VALVE RANGE PT Coag (PPP) [Time] 12.9 s [facility] TYPE AND SCREEN - POSSIBLE T RANSFUSIONOrdered By: Juanito Laird on 07-02-2020 ABO and Rh group Nom (Bld ) Positive [facility] ARM BAND NUMBER [id number] [facility] Blood group antibody screen Ql Negative [facility] EXPIRATION DATE 07/05/2020,3326 [facility] URINALYSIS, MACROOrdered By: Vaughn Ceja on 07-02-2020 Bilirubin Ql (U) Negative NEGATIVE [facility] Clarity (U) SLIGHTLY CLOUDY Abnormal CLEAR [facility] Color (U) PINK Abnormal YELLOW [facility] Glucose Test strip (U) [Mass/Vol] Negative NEGATIVE mg/dl [facility] Hemoglobin Ql (U) LARGE Abnormal NEGATIVE [facility] Interpretation and review of laboratory results Abnormal [facility] Ketones (U) [Mass/Vol] Negative NEGATIVE mg/dl [facility] Leukocyte esterase Test strip Ql (U) TRACE Abnormal NEGATIVE [facility] Nitrite Ql (U) Negative NEGATIVE [facility] pH (U) 5.5 [pH] [facility] Protein Ql (U) 100 mg/dl Abnormal NEGATIVE [facility] Specific gravity (U) [Rel density] <1.005 Low [facility] Urobilinogen (U) [Mass/Vol] 0.2 mg/dL [facility] URINE MICROSCOPICOrdered By: Vaughn Ceja on 07-02-2020 Bacteria LM.HPF (Urine sed) [#/Area] TRACE Abnormal NEGATIVE [facility] Casts LM.LPF (Urine sed) [#/Area] NONE NONE /LPF [facility] Crystals LM Nom (Urine sed) NONE NONE [facility] Epithelial cells LM Ql (Urine sed) 10 TO 20 /HPF [facility] Interpretation and review of laboratory results Abnormal [facility] Mucus Ql (Urine sed) Negative NEGATIVE [facility] RBC LM.HPF (Urine sed) [#/Area] TOO NUMEROUS TO COUNT Abnormal NEGATIVE /HPF [facility] Urine sediment comments LM John (Urine sed) POSSIBLY CONTAMINATED SPECIMEN, CULTURE MUST BE ORDERED SEPARATELY IF DEEMED NECESSARY. [facility] WBC LM.HPF (Urine sed) [#/Area] 1 TO 5 NEGATIVE /HPF [facility] US PELVIC WITH TRANSVAGINAL WITH DOPPLEROrdered By: Juanito Laird on 07-02-2020 IMPRESSION: 5.5 cm septated right ovarian cyst No evidence of right ovarian torsion Nonvisualization of the left ovary 4.1 cm myometrial masses, leiomyoma suspected [facility] EXAM: US PELVIC WITH TRANSVAGINAL WITH DOPPLER [...] to patient body habitus and bowel gas [employer] User, Interfaces - 07/02/2020 4:10 PM EDT [...] ovary 4.1 cm myometrial masses, leiomyoma suspected [employer] [facility] CBC, EDIF, PLATELETon 2019 ABSOLUTE BASOPHIL COUNT 0.0 10*3/uL 0 - 0.2 10*3/uL [facility] Basophils/100 WBC (Bld) 0.6 % 0 - 2 % [facility] Differential cell count method Nom (Bld) AUTO DIFF % [facility] Eosinophils (Bld) [#/Vol] 0.10 10*3/uL 0 - 0.7 10*3/uL [facility] Eosinophils/100 WBC (Bld) 2.4 % 0 - 11 % [facility] Erythrocyte distribution width (RBC) [Ratio] 15.2 % High 11.5 - 14.5 % [facility] Hematocrit (Bld) [Volume fraction] 39.4 % 36 - 48 % [facility] Hemoglobin (Bld) [Mass/Vol] 12.7 g/dL [facility] Interpretation and review of laboratory results Abnormal [facility] Lymphocytes (Bld) [#/Vol] 1.50 10*3/uL 1.2 - 3.4 10*3/uL [facility] Lymphocytes/100 WBC (Bld) 25.8 % 20 - 55 % [facility] MCH (RBC) [Entitic mass] 28.3 pg 26 - 35 PG [facility] MCHC (RBC) [Mass/Vol] 32.3 g/dL [facility] MCV (RBC) [Entitic vol] 87.6 fL [facility] Monocytes (Bld) [#/Vol] 0.3 10*3/uL 0 - 0.7 10*3/uL [facility] Monocytes/100 WBC (Bld) 5.6 % 0 - 10 % [facility] Neutrophils (Bld) [#/Vol] 3.7 10*3/uL 1.4 - 6.5 10*3/uL [facility] Neutrophils/100 WBC (Bld) 65.6 % 37 - 75 % [facility] Platelet mean volume (Bld) [Entitic vol] 9.2 fL [facility] Platelets (Bld) [#/Vol] 277 10*3/uL 130 - 400 10*3/uL [facility] RBC (Bld) [#/Vol] 4.50 10*6/uL 4 - 5.4 10*6/uL [facility] WBC (Bld) [#/Vol] 5.7 10*3/uL 3.6 - 11 10*3/uL [facility] CHEM 7 (LYTES,BUN,CREA,GLUC) on 01-30-2020 Chloride [Moles/Vol] 106 mmol/L [facility] CO2 [Moles/Vol] 20 mmol/L [facility] Creatinine [Mass/Vol] 0.67 mg/dL [facility] GFR/1.73 sq M predicted among blacks MDRD (S/P/Bld) [Vol rate/Area] mL/min/{1.73_m2} ml/min/1.73sq.m [facility] GFR/1.73 sq M predicted among non-blacks MDRD (S/P/Bld) [Vol rate/Area] mL/min/{1.73_m2} ml/min/1.73sq.m [facility] GFR/1.73 sq M predicted among non-blacks MDRD (S/P/Bld) [Vol rate/Area] Average GFR for 30-39 years old = 109. [facility] Comment on above: Chronic Kidney disea se, GFR = <60. Kidney failure, GFR = <15. The GFR estimate is not adjusted for extreme body surface area or acute process, nor has it been validated for women or ethnic groups other than and . Glucose post fast [Mass/Vol] 78 mg/dL [facility] Comment on above: NORMAL <100 mg/dL PREDIABETES 101-126 mg/dL DIABETES 126 mg/dL or higher Interpretation and review of laboratory results Abnormal [facility] Potassium [Moles/Vol] 3.8 mmol/L [facility] Sodium [Moles/Vol] 138 mmol/L [facility] Urea nitrogen [Mass/Vol] 8 mg/dL [facility] CT ABDOMEN/PELVIS WITH CONTR Daljit 01-30-2020 User, [...] unchanged. 4. Prior cholecystectomy and appendectomy. 2 [facility] EXAMINATION: CT ABDOMEN/PELVIS WITH CONTRAST HISTORY: Right [...] osseous lesions. No compression fracture is identified. [facility] IMPRESSION: 1. Scattered fluid throughout nondilated small bowel may correlate with enteritis or mild ileus pattern. No bowel obstruction. 2. Left ovarian cyst measures 4.7 cm. Pelvic ultrasound could be considered, if clinical symptoms warrant. 3. Hepatic cysts, unchanged. 4. Prior cholecystectomy and appendectomy. 2 [facility] HCG QUALITATIVE, URINEon HCG ( test) Ql (U) Negative NEGATIVE [facility] HEPATIC FUNCTION PANELon Albumin [Mass/Vol] 4.6 g/dL [facility] ALP [Catalytic activity/Vol] 52 U/L [facility] ALT [Catalytic activity/Vol] 18 U/L [facility] AST [Catalytic activity/Vol] 31 U/L [facility] Bilirubin [Mass/Vol] 0.5 mg/dL [facility] Bilirubin.direct [Mass/Vol] 0.0 mg/dL [facility] Protein [Mass/Vol] 7.7 g/dL [facility] LIPASEon 01-30-2020 Lipase [Catalytic activity/Vol] 33 U/L 23 - 300 U/L [facility] URINALYSIS, MACROon 01-30-20 20 Bilirubin Ql (U) Negative NEGATIVE [facility] Clarity (U) CLEAR CLEAR [facility] Color (U) YELLOW YELLOW [facility] Glucose Test strip (U) [Mass/Vol] Negative NEGATIVE mg/dl [facility] Hemoglobin Ql (U) Negative NEGATIVE [facility] Interpretation and review of laboratory results Abnormal [facility] Ketones (U) [Mass/Vol] Negative NEGATIVE mg/dl [facility] Leukocyte esterase Test strip Ql (U) Negative NEGATIVE [facility] Nitrite Ql (U) Negative NEGATIVE [facility] pH (U) 7.5 [pH] High [facility] Protein Ql (U) Negative NEGATIVE mg/dl [employer] [facility] Specific gravity (U) [Rel density] 1.015 [facility] Urobilinogen (U) [Mass/Vol] 0.2 [email or web address] Vital Signs Date Time Vital Sign Value Performing Clinician Facility 06-18-2023 09:35-0400 Body height 167.6 cm Breanna Stern APRN.APPLICATION SECURITY ARCHITECT Work Phone: [facility] 06-18-2023 09:35-0400 Body mass index (BMI) [Ratio] 27.29 kg/m2 Breanan Stern APRN.APPLICATION SECURITY ARCHITECT Work Phone: [facility] 06-18-2023 09:35-0400 Body temperature 98.01 [degF] Breanna Stern APRN.APPLICATION SECURITY ARCHITECT Work Phone: [facility] 06-18-2023 09:35-0400 Body weight 76.66 kg Breanna Stern APRN.APPLICATION SECURITY ARCHITECT Work Phone: [facility] 06-18-2023 09:35-0400 Diastolic blood pressure 82 mm[Hg] Breanna Stern APRN.APPLICATION SECURITY ARCHITECT Work Phone: [facility] 06-18-2023 09:35-0400 Heart rate 78 /min Breanna Stenr APRN.APPLICATION SECURITY ARCHITECT Work Phone: [facility] 06-18-2023 09:35-0400 SaO2% (BldA) [Mass fraction] 100 % Breanna Stern APRN.APPLICATION SECURITY ARCHITECT Work Phone: [facility] 06-18-2023 09:35-0400 Systolic blood pressure 142 mm[Hg] Breanna Stern APRN.APPLICATION SECURITY ARCHITECT Work Phone: [facility] 05-31-2023 00:53-0400 Diastolic blood pressure 82 mm[Hg] [employer] Jaquan Morrow Work Phone: [facility] 05-31-2023 00:53-0400 Heart rate 51 /min [employer] Jaquan Cristhian Work Phone: [facility] 05-31-2023 00:53-0400 Respiratory rate 18 /min [employer] Jaquan Cristhian Work Phone: [facility] 05-31-2023 00:53-0400 SaO2% (BldA) [Mass fraction] 91 % [employer] Jaquan Cristhian Work Phone: [facility] 05-31-2023 00:53-0400 Systolic blood pressure 142 mm[Hg] [employer] Jaquan Cristhian Work Phone: [facility] 05-30-2023 15:25-0400 Body height 167.64 cm [employer] Jaquan Cristhian Work Phone: [facility] 05-30-2023 15:25-0400 Body temperature 97.7 [degF] [employer] Jaquan Cristhian Work Phone: [facility] 05-30-2023 15:25-0400 Body weight 76.65 kg [employer] Jaquan Cristhian Work Phone: [facility] 05-17-2023 16:03-0400 Diastolic blood pressure 82 mm[Hg] [facility] 05-17-2023 16:03-0400 Heart rate 72 /min [facility] 05-17-2023 16:03-0400 Mean blood pressure 95 mm[Hg] [facility] 05-17-2023 16:03-0400 Respiratory rate 17 /min [facility] 05-17-2023 16:03-0400 SaO2% (BldA) [Mass fraction] 100 % [facility] 05-17-2023 16:03-0400 Systolic blood pressure 120 mm[Hg] [facility] 05-17-2023 15:30-0400 Diastolic blood pressure 86 mm[Hg] [facility] 05-17-2023 15:30-0400 Heart rate 71 /min [facility] 05-17-2023 15:30-0400 Mean blood pressure 103 mm[Hg] [facility] 05-17-2023 15:30-0400 Respiratory rate 16 /min [facility] 05-17-2023 15:30-0400 SaO2% (BldA) [Mass fraction] 100 % [facility] 05-17-2023 15:30-0400 Systolic blood pressure 136 mm[Hg] [facility] 05-17-2023 15:00-0400 Diastolic blood pressure 78 mm[Hg] [facility] 05-17-2023 15:00-0400 Heart rate 70 /min [facility] 05-17-2023 15:00-0400 Mean blood pressure 97 mm[Hg] [facility] 05-17-2023 15:00-0400 Respiratory rate 15 /min [facility] 05-17-2023 14:16-0400 Body temperature 97.7 [degF] [facility] 05-17-2023 14:16-0400 Heart rate 74 /min [facility] 05-14-2023 13:06-0400 Hourly Rounding [facility] 05-14-2023 13:06-0400 Promise to Return [facility] 05-14-2023 12:06-0400 Hourly Rounding [facility] 05-14-2023 12:06-0400 Promise to Return [facility] 05-14-2023 11:32-0400 Hourly Rounding [facility] 05-14-2023 11:32-0400 Promise to Return [facility] 05-14-2023 10:08-0400 Heart rate 57 /min [facility] 05-14-2023 10:08-0400 SaO2% (BldA) [Mass fraction] 100 % [facility] 05-14-2023 10:08-0400 Diastolic blood pressure 80 mm[Hg] [facility] 05-14-2023 10:08-0400 Mean blood pressure 93 mm[Hg] [facility] 05-14-2023 10:08-0400 Systolic blood pressure 119 mm[Hg] [facility] 05-14-2023 10:08-0400 Body temperature 97.34 [degF] [facility] 05-14-2023 07:32-0400 Heart rate 57 /min [facility] 05-14-2023 07:32-0400 SaO2% (BldA) [Mass fraction] 100 % [facility] 05-14-2023 07:32-0400 Diastolic blood pressure 66 mm[Hg] [facility] 05-14-2023 07:32-0400 Mean blood pressure 77 mm[Hg] [facility] 05-14-2023 07:32-0400 Systolic blood pressure 100 mm[Hg] [facility] 05-14-2023 07:31-0400 Body temperature 97.34 [degF] [facility] 05-14-2023 05:00-0400 Blood Pressure Location [facility] 05-14-2023 05:00-0400 Diastolic blood pressure 77 mm[Hg] [facility] 05-14-2023 05:00-0400 Mean blood pressure 90 mm[Hg] [facility] 05-14-2023 05:00-0400 Systolic blood pressure 116 mm[Hg] [facility] 05-13-2023 23:38-0400 Heart rate 53 /min [facility] 05-13-2023 23:38-0400 SaO2% (BldA) [Mass fraction] 100 % [facility] 05-13-2023 23:38-0400 Respiratory rate 16 /min [facility] 05-13-2023 23:37-0400 Mean blood pressure 92 mm[Hg] [facility] 05-13-2023 23:00-0400 Blood Pressure Location [facility] 05-13-2023 23:00-0400 Body temperature 97.34 [degF] [facility] 05-13-2023 19:33-0400 Body temperature 97.52 [degF] [facility] 05-13-2023 16:00-0400 Body temperature 98.06 [degF] [facility] 05-13-2023 11:00-0400 Body temperature 98.24 [degF] [facility] 05-12-2023 16:17-0400 Blood Pressure Location [facility] 05-12-2023 16:00-0400 Respiratory rate 20 /min [facility] 05-12-2023 15:55-0400 Mean blood pressure 86 mm[Hg] [facility] 05-12-2023 15:55-0400 Respiratory rate 14 /min [facility] 05-12-2023 15:50-0400 Mean blood pressure 87 mm[Hg] [facility] 05-12-2023 15:50-0400 Respiratory rate 18 /min [facility] 05-12-2023 15:36-0400 Body temperature 97.88 [degF] [facility] 05-12-2023 15:30-0400 Respiratory rate 12 /min [facility] 05-12-2023 15:25-0400 Respiratory rate 12 /min [facility] 05-12-2023 13:19-0400 Heart rate 61 /min [facility] 05-12-2023 09:32-0400 Heart rate 77 /min [facility] 05-11-2023 16:43-0400 Diastolic blood pressure 67 mm[Hg] Mateusz Garcia [facility] 05-11-2023 16:43-0400 Heart rate 75 /min Mateusz Garcia [facility] 05-11-2023 16:43-0400 Mean blood pressure 83 mm[Hg] Mateusz Garcia [facility] 05-11-2023 16:43-0400 Respiratory rate 18 /min Mateusz Jose [facility] 05-11-2023 16:43-0400 SaO2% (BldA) [Mass fraction] 100 % Mateusz Jose [facility] 05-11-2023 16:43-0400 Systolic blood pressure 115 mm[Hg] Mateusz Jose [facility] 05-11-2023 15:00-0400 Diastolic blood pressure 79 mm[Hg] Mateusz Jose [facility] 05-11-2023 15:00-0400 Heart rate 65 /min Mateusz Jose [facility] 05-11-2023 15:00-0400 Mean blood pressure 92 mm[Hg] Mateusz Jose [facility] 05-11-2023 15:00-0400 Systolic blood pressure 118 mm[Hg] Mateusz Jose [facility] 05-11-2023 14:30-0400 Heart rate 69 /min Mateusz Jose [facility] 05-11-2023 14:30-0400 Respiratory rate 18 /min Mateusz Jose [facility] 05-11-2023 14:30-0400 SaO2% (BldA) [Mass fraction] 100 % Mateusz Jose [facility] 05-11-2023 12:00-0400 Body temperature 97.7 [degF] Mateusz Jose [facility] 05-11-2023 12:00-0400 Diastolic blood pressure 83 mm[Hg] Mateusz Jose [facility] 05-11-2023 12:00-0400 Heart rate 73 /min Mateusz Jose [facility] 05-11-2023 12:00-0400 Systolic blood pressure 147 mm[Hg] Mateusz Jose [facility] 05-09-2023 16:20-0400 Diastolic blood pressure 67 mm[Hg] Mateusz Jose [facility] 05-09-2023 16:20-0400 Heart rate 75 /min Mateusz Jose [facility] 05-09-2023 16:20-0400 Mean blood pressure 82 mm[Hg] Mateusz Jose [facility] 05-09-2023 16:20-0400 Respiratory rate 16 /min Mateusz Jose [facility] 05-09-2023 16:20-0400 SaO2% (BldA) [Mass fraction] 97 % Mateusz Jose [facility] 05-09-2023 16:20-0400 Systolic blood pressure 112 mm[Hg] Mateusz Jose [facility] 05-09-2023 15:40-0400 Diastolic blood pressure 69 mm[Hg] Mateusz Jose [facility] 05-09-2023 15:40-0400 Heart rate 69 /min Mateusz Jose [facility] 05-09-2023 15:40-0400 Mean blood pressure 84 mm[Hg] Mateusz Jose [facility] 05-09-2023 15:40-0400 Respiratory rate 18 /min Mateusz Jose [facility] 05-09-2023 15:40-0400 SaO2% (BldA) [Mass fraction] 100 % Mateusz Jose [facility] 05-09-2023 15:40-0400 Systolic blood pressure 113 mm[Hg] Mateusz Jose [facility] 05-09-2023 14:00-0400 Diastolic blood pressure 80 mm[Hg] Mateusz Jose [facility] 05-09-2023 14:00-0400 Heart rate 78 /min Mateusz Jose [facility] 05-09-2023 14:00-0400 Mean blood pressure 96 mm[Hg] Matesuz Jose [facility] 05-09-2023 14:00-0400 Respiratory rate 19 /min Mateusz Jose [facility] 05-09-2023 14:00-0400 Systolic blood pressure 129 mm[Hg] Mateusz Jose [facility] 05-09-2023 11:47-0400 Body temperature 97.7 [degF] Mateusz Jose [facility] 05-09-2023 11:47-0400 Heart rate 107 /min Mateusz Jose [facility] 05-06-2023 21:11-0400 Diastolic blood pressure 61 mm[Hg] Mateusz Jose [facility] 05-06-2023 21:11-0400 Heart rate 55 /min Mateusz Jose [facility] 05-06-2023 21:11-0400 Mean blood pressure 74 mm[Hg] Mateusz Ojse [facility] 05-06-2023 21:11-0400 Respiratory rate 16 /min Mateusz Jose [facility] 05-06-2023 21:11-0400 SaO2% (BldA) [Mass fraction] 100 % Mateusz Jose [facility] 05-06-2023 21:11-0400 Systolic blood pressure 100 mm[Hg] Mateusz Jose [facility] 05-06-2023 20:20-0400 Diastolic blood pressure 73 mm[Hg] Mateusz Jose [facility] 05-06-2023 20:20-0400 Heart rate 53 /min Mateusz Jose [facility] 05-06-2023 20:20-0400 Mean blood pressure 89 mm[Hg] Mateusz Jose [facility] 05-06-2023 20:20-0400 Respiratory rate 14 /min Mateusz Jose [facility] 05-06-2023 20:20-0400 SaO2% (BldA) [Mass fraction] 100 % Mateusz Jose [facility] 05-06-2023 20:20-0400 Systolic blood pressure 122 mm[Hg] Mateusz Jose [facility] 05-06-2023 19:30-0400 Diastolic blood pressure 87 mm[Hg] Mateusz Jose [facility] 05-06-2023 19:30-0400 Heart rate 72 /min Mateusz Jose [facility] 05-06-2023 19:30-0400 Mean blood pressure 105 mm[Hg] Mateusz Jose [facility] 05-06-2023 19:30-0400 Respiratory rate 16 /min Mateusz Jose [facility] 05-06-2023 19:30-0400 SaO2% (BldA) [Mass fraction] 100 % Mateusz Jose [facility] 05-06-2023 19:30-0400 Systolic blood pressure 141 mm[Hg] Mateuszdeo Garcia [facility] 05-06-2023 15:45-0400 Body temperature 98.78 [degF] Mateusz Garcia [facility] 05-06-2023 15:45-0400 Heart rate 66 /min Mateusz Garcia [facility] 05-06-2023 15:45-0400 Respiratory rate 18 /min Mateusz Garcia [facility] 04-28-2023 09:49-0400 Body height 167.6 cm Kasie Avalos MD Work Phone: [facility] 04-28-2023 09:49-0400 Body temperature 96.6 [degF] Kasie Avalos MD Work Phone: [facility] 04-28-2023 09:49-0400 Body weight 79.38 kg Kasie Avalos MD Work Phone: [facility] 04-28-2023 09:49-0400 Diastolic blood pressure 75 mm[Hg] Kasie Avalos MD Work Phone: [facility] 04-28-2023 09:49-0400 Heart rate 80 /min Kasie Avalos MD Work Phone: [facility] 04-28-2023 09:49-0400 SaO2% (BldA) [Mass fraction] 100 % Kasie Avalos MD Work Phone: [facility] 04-28-2023 09:49-0400 Systolic blood pressure 106 mm[Hg] Kasie Avalos MD Work Phone: [facility] 04-06-2023 14:00-0500 Diastolic blood pressure 59 mm[Hg] [employer] Jaquan Morrow Work Phone: [facility] 04-06-2023 14:00-0500 Heart rate 59 /min [employer] Jaquan Cristhian Work Phone: [facility] 04-06-2023 14:00-0500 Respiratory rate 16 /min [employer] Jaquan Cristhian Work Phone: [facility] 04-06-2023 14:00-0500 SaO2% (BldA) [Mass fraction] 98 % [employer] Jaquan Cristhian Work Phone: [facility] 04-06-2023 14:00-0500 Systolic blood pressure 113 mm[Hg] [employer] Jaquan Cristhian Work Phone: [facility] 04-06-2023 09:47-0500 Body height 167.64 cm [employer] Jaquan Cristhian Work Phone: [facility] 04-06-2023 09:47-0500 Body temperature 96.7 [degF] [employer] Jaquan Cristhian Work Phone: [facility] 04-06-2023 09:47-0500 Body weight 81.1 kg [employer] Jaquan Cristhian Work Phone: [facility] 04-02-2023 17:00-0500 Diastolic blood pressure 63 mm[Hg] [facility] 04-02-2023 17:00-0500 Heart rate 75 /min [facility] 04-02-2023 17:00-0500 Mean blood pressure 80 mm[Hg] [facility] 04-02-2023 17:00-0500 SaO2% (BldA) [Mass fraction] 99 % [facility] 04-02-2023 17:00-0500 Systolic blood pressure 113 mm[Hg] [facility] 04-02-2023 16:00-0500 Diastolic blood pressure 71 mm[Hg] [facility] 04-02-2023 16:00-0500 Heart rate 71 /min [facility] 04-02-2023 16:00-0500 Mean blood pressure 88 mm[Hg] [facility] 04-02-2023 16:00-0500 Respiratory rate 14 /min [facility] 04-02-2023 16:00-0500 SaO2% (BldA) [Mass fraction] 100 % [facility] 04-02-2023 16:00-0500 Systolic blood pressure 123 mm[Hg] [facility] 04-02-2023 15:00-0500 Diastolic blood pressure 55 mm[Hg] [facility] 04-02-2023 15:00-0500 Heart rate 76 /min [facility] 04-02-2023 15:00-0500 Mean blood pressure 73 mm[Hg] [facility] 04-02-2023 15:00-0500 Respiratory rate 17 /min [facility] 04-02-2023 15:00-0500 Systolic blood pressure 109 mm[Hg] [facility] 04-02-2023 10:54-0500 Body temperature 98.6 [degF] [facility] 04-02-2023 10:54-0500 Heart rate 73 /min [facility] 04-02-2023 10:54-0500 Respiratory rate 16 /min [facility] 03-20-2023 08:41-0500 Body temperature 97.5 [degF] Melisa Barker MD Work Phone: [facility] 03-20-2023 08:41-0500 Diastolic blood pressure 74 mm[Hg] Melisa Barker MD Work Phone: [facility] 03-20-2023 08:41-0500 Heart rate 62 /min Melisa Barker MD Work Phone: [facility] 03-20-2023 08:41-0500 Respiratory rate 18 /min Melisa Barker MD Work Phone: [facility] 03-20-2023 08:41-0500 SaO2% (BldA) [Mass fraction] 98 % Melisa Barker MD Work Phone: [facility] 03-20-2023 08:41-0500 Systolic blood pressure 131 mm[Hg] Melisa Barker MD Work Phone: [facility] 03-16-2023 13:47-0500 Body height 167.6 cm Melisa Barker MD Work Phone: [facility] 03-16-2023 13:47-0500 Body mass index (BMI) [Ratio] 32.99 kg/m2 Melisa Barker MD Work Phone: [facility] 03-16-2023 13:47-0500 Body weight 92.7 kg Melisa Barker MD Work Phone: [facility] 03-16-2023 12:00-0500 Diastolic blood pressure 70 mm[Hg] Earnest Jett [facility] 03-16-2023 12:00-0500 Heart rate 69 /min Earnest Blancoe [facility] 03-16-2023 12:00-0500 Mean blood pressure 84 mm[Hg] Earnset Johnie [facility] 03-16-2023 12:00-0500 Systolic blood pressure 113 mm[Hg] Earnest Johnie [facility] 03-16-2023 11:30-0500 Diastolic blood pressure 86 mm[Hg] Earnest Johnie [facility] 03-16-2023 11:30-0500 Heart rate 61 /min Earnest Johnie [facility] 03-16-2023 11:30-0500 Mean blood pressure 102 mm[Hg] Earnest Johnie [facility] 03-16-2023 11:30-0500 Respiratory rate 16 /min Earnest Johnie [facility] 03-16-2023 11:30-0500 Systolic blood pressure 133 mm[Hg] Earnest Johnie [facility] 03-16-2023 11:07-0500 Diastolic blood pressure 83 mm[Hg] Earnest Johnie [facility] 03-16-2023 11:07-0500 Heart rate 63 /min Earnest Johnie [facility] 03-16-2023 11:07-0500 Mean blood pressure 94 mm[Hg] Earnest Johnie [facility] 03-16-2023 11:07-0500 SaO2% (BldA) [Mass fraction] 100 % Earnest Johnie [facility] 03-16-2023 11:07-0500 Systolic blood pressure 116 mm[Hg] Earnest Johnie [facility] 03-16-2023 10:21-0500 Body temperature 97.52 [degF] Earnest Johnie [facility] 03-16-2023 10:21-0500 Heart rate 70 /min Earnest Johnie [facility] 03-16-2023 10:21-0500 SaO2% (BldA) [Mass fraction] 100 % Earnest Johnie [facility] 03-15-2023 18:00-0500 Diastolic blood pressure 75 mm[Hg] Earnest Johnie [facility] 03-15-2023 18:00-0500 Heart rate 68 /min Earnest Johnie [facility] 03-15-2023 18:00-0500 Mean blood pressure 94 mm[Hg] Earnest Johnie [facility] 03-15-2023 18:00-0500 Respiratory rate 16 /min Earnest Johnie [facility] 03-15-2023 18:00-0500 SaO2% (BldA) [Mass fraction] 98 % Earnest Johnie [facility] 03-15-2023 18:00-0500 Systolic blood pressure 131 mm[Hg] Earnest Johnie [facility] 03-15-2023 17:19-0500 Diastolic blood pressure 66 mm[Hg] Earnest Johnie [facility] 03-15-2023 17:19-0500 Heart rate 56 /min Earnest Johnie [facility] 03-15-2023 17:19-0500 Mean blood pressure 79 mm[Hg] Earnest Johnie [facility] 03-15-2023 17:19-0500 Respiratory rate 18 /min Earnest Johnie [facility] 03-15-2023 17:19-0500 SaO2% (BldA) [Mass fraction] 95 % Earnest Johnie [facility] 03-15-2023 17:19-0500 Systolic blood pressure 104 mm[Hg] Earnest Johnie [facility] 03-15-2023 16:23-0500 Diastolic blood pressure 72 mm[Hg] Earnest Johnie [facility] 03-15-2023 16:23-0500 Heart rate 58 /min Earnest Johnie [facility] 03-15-2023 16:23-0500 Mean blood pressure 90 mm[Hg] Earnest Johnie [facility] 03-15-2023 16:23-0500 Respiratory rate 20 /min Earnest Jett [facility] 03-15-2023 16:23-0500 SaO2% (BldA) [Mass fraction] 99 % Earnest Jett [facility] 03-15-2023 16:23-0500 Systolic blood pressure 126 mm[Hg] Earenst Jett [facility] 03-15-2023 11:41-0500 Body temperature 97.88 [degF] Earnest Jett [facility] 03-15-2023 11:41-0500 Heart rate 71 /min Earnest Jett [facility] 03-15-2023 11:41-0500 Respiratory rate 26 /min Earnest Jett [facility] 03-10-2023 11:50-0500 Body temperature 97.9 [degF] Sherry Magaña MD Work Phone: [facility] 03-10-2023 11:50-0500 Diastolic blood pressure 85 mm[Hg] Sherry Magaña MD Work Phone: [facility] 03-10-2023 11:50-0500 Heart rate 73 /min Sherry Magaña MD Work Phone: [facility] 03-10-2023 11:50-0500 Respiratory rate 18 /min Sherry Magaña MD Work Phone: [facility] 03-10-2023 11:50-0500 SaO2% (BldA) [Mass fraction] 100 % Sherry Magaña MD Work Phone: [facility] 03-10-2023 11:50-0500 Systolic blood pressure 137 mm[Hg] Sherry Magaña MD Work Phone: [facility] 03-10-2023 08:32-0500 Body mass index (BMI) [Ratio] 29.69 kg/m2 Sherry Magaña MD Work Phone: [facility] 03-10-2023 08:32-0500 Body weight 83.4 kg Sherry Magaña MD Work Phone: [facility] 03-05-2023 06:42-0500 Body height 167.6 cm Sherry Magaña MD Work Phone: [facility] 02-13-2023 17:30-0500 Diastolic blood pressure 73 mm[Hg] [employer] Jaquan Cristhian Work Phone: [facility] 02-13-2023 17:30-0500 Heart rate 61 /min [employer] Jaquan Cristhian Work Phone: [facility] 02-13-2023 17:30-0500 Respiratory rate 18 /min [employer] Jaquan Cristhian Work Phone: [facility] 02-13-2023 17:30-0500 SaO2% (BldA) [Mass fraction] 100 % [employer] Jaquan Cristhian Work Phone: [facility] 02-13-2023 17:30-0500 Systolic blood pressure 121 mm[Hg] [employer] Jaquan Cristhian Work Phone: [facility] 02-13-2023 10:43-0500 Body height 167.64 cm [employer] Jaquan Cristhian Work Phone: [facility] 02-13-2023 10:43-0500 Body weight 83 kg [employer] Jaquan Cristhian Work Phone: [facility] 02-13-2023 10:42-0500 Body temperature 98.2 [degF] [employer] Jaquan Cristhian Work Phone: [facility] 12-31-2022 15:49-0500 Diastolic blood pressure 82 mm[Hg] Mateusz Garcia [facility] 12-31-2022 15:49-0500 Heart rate 81 /min Mateusz Jose [facility] 12-31-2022 15:49-0500 Mean blood pressure 96 mm[Hg] Mateusz Jose [facility] 12-31-2022 15:49-0500 Respiratory rate 16 /min Mateusz Jose [facility] 12-31-2022 15:49-0500 SaO2% (BldA) [Mass fraction] 100 % Mateusz Jose [facility] 12-31-2022 15:49-0500 Systolic blood pressure 124 mm[Hg] Mateusz Jose [facility] 12-31-2022 15:40-0500 Hourly Rounding Mateusz Jose [facility] 12-31-2022 15:40-0500 Promise to Return Mateusz Jose [facility] 12-31-2022 15:00-0500 Diastolic blood pressure 78 mm[Hg] Mateusz Jose [facility] 12-31-2022 15:00-0500 Heart rate 76 /min Mateusz Jose [facility] 12-31-2022 15:00-0500 Mean blood pressure 91 mm[Hg] Mateusz Jose [facility] 12-31-2022 15:00-0500 Systolic blood pressure 117 mm[Hg] Mateusz Jose [facility] 12-31-2022 14:40-0500 Hourly Rounding Mateusz Jose [facility] 12-31-2022 14:40-0500 Promise to Return Mateusz Jose [facility] 12-31-2022 14:00-0500 Diastolic blood pressure 83 mm[Hg] Mateusz Garcia [facility] 12-31-2022 14:00-0500 Heart rate 71 /min Mateusz Garcia [facility] 12-31-2022 14:00-0500 Mean blood pressure 99 mm[Hg] Mateusz Garcia [facility] 12-31-2022 14:00-0500 Systolic blood pressure 132 mm[Hg] Mateusz Garcia [facility] 12-31-2022 13:40-0500 Hourly Rounding Mateusz Garcia [facility] 12-31-2022 13:40-0500 Promise to Return Mateusz Garcia [facility] 12-31-2022 12:42-0500 Body temperature 97.7 [degF] Mateusz Garcia [facility] 12-31-2022 12:42-0500 Heart rate 88 /min Mateusz Garcia [facility] 12-04-2022 09:54-0400 Body height 166 cm Agustin Zamorano MD Work Phone: [facility] 12-04-2022 09:54-0400 Body weight 83.78 kg Agustin Zamorano MD Work Phone: [facility] 12-04-2022 09:54-0400 Diastolic blood pressure 62 mm[Hg] Agustin Zamorano MD Work Phone: [facility] 12-04-2022 09:54-0400 Heart rate 91 /min Agustin Zamorano MD Work Phone: [facility] 12-04-2022 09:54-0400 Systolic blood pressure 112 mm[Hg] Agustin Zamorano MD Work Phone: [facility] 11-04-2022 12:00-0400 Body temperature 97.7 [degF] Rheu Jeanne Work Phone: [facility] 11-04-2022 12:00-0400 Diastolic blood pressure 65 mm[Hg] Rheu Jeanne Work Phone: [facility] 11-04-2022 12:00-0400 Heart rate 97 /min Rheu Jeanne Work Phone: [facility] 11-04-2022 09:19-0400 Body height 167.6 cm Deacon Kat MD Work Phone: [facility] 11-04-2022 09:19-0400 Body temperature 97.81 [degF] Deacon Kat MD Work Phone: [facility] 11-04-2022 09:19-0400 Body weight 83.46 kg Deacon Kat MD Work Phone: [facility] 11-04-2022 09:19-0400 Diastolic blood pressure 81 mm[Hg] Deacon Kat MD Work Phone: [facility] 11-04-2022 09:19-0400 Heart rate 82 /min Deacon Kat MD Work Phone: [facility] 11-04-2022 09:19-0400 Respiratory rate 18 /min Deacon Kat MD Work Phone: [facility] 11-04-2022 09:19-0400 SaO2% (BldA) [Mass fraction] 98 % Deacon Kat MD Work Phone: [facility] 11-04-2022 09:19-0400 Systolic blood pressure 125 mm[Hg] Deacon Kat MD Work Phone: [facility] 11-02-2022 13:52-0400 Diastolic blood pressure 82 mm[Hg] Dimitri Walker MD Work Phone: [employer] [facility] 11-02-2022 13:52-0400 Heart rate 82 /min Dimitri Walker MD Work Phone: [employer] 11-02-2022 13:52-0400 Respiratory rate 18 /min Dimitri Walker MD Work Phone: [employer] 11-02-2022 13:52-0400 Systolic blood pressure 128 mm[Hg] Dimitri Walker MD Work Phone: [employer] 11-02-2022 10:35-0400 Body mass index (BMI) [Ratio] 30.18 kg/m2 Dimitri Walker MD Work Phone: [employer] 11-02-2022 10:35-0400 Body weight 84.82 kg Dimitri Walker MD Work Phone: [employer] Comment on above: stand up scale triage room 11-02-2022 10:34-0400 Body temperature 98.29 [degF] Dimitri Walker MD Work Phone: [employer] 11-02-2022 10:34-0400 SaO2% (BldA) [Mass fraction] 98 % Dimitri Walker MD Work Phone: [employer] 10-31-2022 08:30-0400 Diastolic blood pressure 67 mm[Hg] Jalyn Suresh DO Work Phone: [employer] 10-31-2022 08:30-0400 Systolic blood pressure 120 mm[Hg] Jalyn Suresh DO Work Phone: [employer] 10-31-2022 06:32-0400 Body temperature 97.7 [degF] Jalyn Suresh DO Work Phone: [employer] 10-31-2022 06:32-0400 Heart rate 92 /min Jalyn Suresh DO Work Phone: [employer] 10-31-2022 06:32-0400 Respiratory rate 19 /min Jalyn Suresh DO Work Phone: [employer] 10-31-2022 06:32-0400 SaO2% (BldA) [Mass fraction] 100 % Jalyn Suresh DO Work Phone: [facility] 10-20-2022 11:52-0400 Diastolic blood pressure 86 mm[Hg] Earnest Johnie [facility] 10-20-2022 11:52-0400 Heart rate 75 /min Earnest Johnie [facility] 10-20-2022 11:52-0400 Respiratory rate 15 /min Earnest Johnie [facility] 10-20-2022 11:52-0400 SaO2% (BldA) [Mass fraction] 99 % Earnest Johnie [facility] 10-20-2022 11:52-0400 Systolic blood pressure 141 mm[Hg] Earnest Johnie [facility] 10-20-2022 10:31-0400 Diastolic blood pressure 70 mm[Hg] Earnest Johnie [facility] 10-20-2022 10:31-0400 Heart rate 70 /min Earnest Johnie [facility] 10-20-2022 10:31-0400 Mean blood pressure 92 mm[Hg] Earnest Johnie [facility] 10-20-2022 10:31-0400 Respiratory rate 16 /min Earnest Johnie [facility] 10-20-2022 10:31-0400 SaO2% (BldA) [Mass fraction] 100 % Earnest Johnie [facility] 10-20-2022 10:31-0400 Systolic blood pressure 137 mm[Hg] Earnest Johnie [facility] 10-20-2022 09:17-0400 Diastolic blood pressure 63 mm[Hg] Earnest Johnie [facility] 10-20-2022 09:17-0400 Heart rate 77 /min Earnest Johnie [facility] 10-20-2022 09:17-0400 Mean blood pressure 85 mm[Hg] Earnest Johnie [facility] 10-20-2022 09:17-0400 Respiratory rate 18 /min Earnest Johnie [facility] 10-20-2022 09:17-0400 SaO2% (BldA) [Mass fraction] 100 % Earnest Johnie [facility] 10-20-2022 09:17-0400 Systolic blood pressure 128 mm[Hg] Earnest Johnie [facility] 10-20-2022 08:17-0400 Body temperature 97.88 [degF] Earnest Johnie [facility] 10-19-2022 13:30-0400 Diastolic blood pressure 82 mm[Hg] Earnest Johnie [facility] 10-19-2022 13:30-0400 Heart rate 67 /min Earnest Johnie [facility] 10-19-2022 13:30-0400 Mean blood pressure 100 mm[Hg] Earnest Johnie [facility] 10-19-2022 13:30-0400 Respiratory rate 20 /min Earnest Johnie [facility] 10-19-2022 13:30-0400 SaO2% (BldA) [Mass fraction] 100 % Earnest Johnie [facility] 10-19-2022 13:30-0400 Systolic blood pressure 136 mm[Hg] Earnest Johnie [facility] 09-04-2023 13:00-0400 Heart rate 61 /min Earnest Jett [facility] 10-19-2022 13:00-0400 Respiratory rate 18 /min Earnest Jett [facility] 10-19-2022 13:00-0400 Systolic blood pressure 127 mm[Hg] Earnest Jett [facility] 10-19-2022 12:30-0400 Diastolic blood pressure 80 mm[Hg] Earnest Blancoe [facility] 10-19-2022 12:30-0400 Heart rate 60 /min Earnest Jett [facility] 10-19-2022 12:30-0400 Mean blood pressure 97 mm[Hg] Earnest Jett [facility] 10-19-2022 12:30-0400 Respiratory rate 20 /min Earnest Jett [facility] 10-19-2022 12:30-0400 SaO2% (BldA) [Mass fraction] 100 % Earnest Jett [facility] 10-19-2022 12:30-0400 Systolic blood pressure 132 mm[Hg] Earnest Jett [facility] 10-19-2022 08:34-0400 Body temperature 96.62 [degF] Earnest Jett [facility] 10-19-2022 08:34-0400 Heart rate 73 /min Earnest Jett [facility] 09-28-2022 07:54-0400 Body height 167.[address] Work Phone: [facility] 09-28-2022 07:54-0400 Body weight 83.[address] Work Phone: [facility] 09-18-2022 15:12-0400 Body height 167.6 cm Breanna Jarred BRANCH SERVICE ASSOCIATE.APPLICATION SECURITY ARCHITECT Work Phone: [facility] 09-18-2022 15:12-0400 Body temperature 97.5 [degF] Breanna Shaikhyd BRANCH SERVICE ASSOCIATE.APPLICATION SECURITY ARCHITECT Work Phone: [facility] 09-18-2022 15:12-0400 Body weight 83.46 kg Breanna Jarred BRANCH SERVICE ASSOCIATE.APPLICATION SECURITY ARCHITECT Work Phone: [facility] 09-18-2022 15:12-0400 Diastolic blood pressure 88 mm[Hg] Breanna Jarred BRANCH SERVICE ASSOCIATE.APPLICATION SECURITY ARCHITECT Work Phone: [facility] 09-18-2022 15:12-0400 Heart rate 65 /min Breanna Jarred BRANCH SERVICE ASSOCIATE.APPLICATION SECURITY ARCHITECT Work Phone: [facility] 09-18-2022 15:12-0400 SaO2% (BldA) [Mass fraction] 99 % Breanna Jarred BRANCH SERVICE ASSOCIATE.APPLICATION SECURITY ARCHITECT Work Phone: [facility] 09-18-2022 15:12-0400 Systolic blood pressure 118 mm[Hg] Breanna Jarred BRANCH SERVICE ASSOCIATE.APPLICATION SECURITY ARCHITECT Work Phone: [facility] 07-29-2022 08:40-0400 Blood Pressure Location Rajni Lue [facility] 07-29-2022 08:40-0400 Diastolic blood pressure 86 mm[Hg] Rajni Lue [facility] 07-29-2022 08:40-0400 Heart rate 71 /min Rajni Lue [facility] 07-29-2022 08:40-0400 Systolic blood pressure 127 mm[Hg] Rajni Lue [facility] 07-22-2022 10:08-0400 Body height 167.6 cm Kasie Avalos MD Work Phone: [facility] 07-22-2022 10:08-0400 Body temperature 98.1 [degF] Kasie Avalos MD Work Phone: [facility] 07-22-2022 10:08-0400 Body weight 79.92 kg Kasie Avalos MD Work Phone: [facility] 07-22-2022 10:08-0400 Diastolic blood pressure 89 mm[Hg] Kasie Avalos MD Work Phone: [facility] 07-22-2022 10:08-0400 Heart rate 72 /min Kasie Avalos MD Work Phone: [facility] 07-22-2022 10:08-0400 SaO2% (BldA) [Mass fraction] 100 % Kasie Avalos MD Work Phone: [facility] 07-22-2022 10:08-0400 Systolic blood pressure 136 mm[Hg] Kasie Avalos MD Work Phone: [facility] 06-12-2022 10:00-0400 Body height 167.6 cm Ciara Ziganti PA-C Work Phone: [facility] 06-12-2022 10:00-0400 Body temperature 97.5 [degF] Ciara Ziganti PA-C Work Phone: [facility] 06-12-2022 10:00-0400 Body weight 84.37 kg Ciara Ziganti PA-C Work Phone: [facility] 06-12-2022 10:00-0400 Diastolic blood pressure 78 mm[Hg] Ciara Ziganti PA-C Work Phone: [facility] 06-12-2022 10:00-0400 Heart rate 68 /min Ciara Ziganti PA-C Work Phone: [facility] 06-12-2022 10:00-0400 Systolic blood pressure 123 mm[Hg] Ciara Ziganti PA-C Work Phone: [facility] 06-10-2022 17:43-0400 Diastolic blood pressure 74 mm[Hg] [facility] 06-10-2022 17:43-0400 Heart rate 65 /min [facility] 06-10-2022 17:43-0400 Mean blood pressure 90 mm[Hg] [facility] 06-10-2022 17:43-0400 Respiratory rate 16 /min [facility] 06-10-2022 17:43-0400 SaO2% (BldA) [Mass fraction] 100 % [facility] 06-10-2022 17:43-0400 Systolic blood pressure 122 mm[Hg] [facility] 06-10-2022 17:00-0400 Diastolic blood pressure 77 mm[Hg] [facility] 06-10-2022 17:00-0400 Heart rate 66 /min [facility] 06-10-2022 17:00-0400 Mean blood pressure 94 mm[Hg] [facility] 06-10-2022 17:00-0400 Systolic blood pressure 129 mm[Hg] [facility] 06-10-2022 16:00-0400 Heart rate 83 /min [facility] 06-10-2022 16:00-0400 Mean blood pressure 93 mm[Hg] [facility] 06-10-2022 16:00-0400 Systolic blood pressure 130 mm[Hg] [facility] 06-10-2022 12:32-0400 Body temperature 97.7 [degF] [facility] 06-10-2022 12:32-0400 Heart rate 88 /min [facility] 06-10-2022 12:32-0400 Respiratory rate 18 /min [facility] 03-06-2022 15:30-0500 Diastolic blood pressure 70 mm[Hg] Deacon Kat MD Work Phone: [facility] 03-06-2022 15:30-0500 Heart rate 67 /min Deacon Kat MD Work Phone: [facility] 03-06-2022 15:30-0500 Respiratory rate 16 /min Deacon Kat MD Work Phone: [facility] 03-06-2022 15:30-0500 SaO2% (BldA) [Mass fraction] 100 % Deacon Kat MD Work Phone: [facility] 03-06-2022 15:30-0500 Systolic blood pressure 105 mm[Hg] Deacon Kat MD Work Phone: [facility] 03-06-2022 13:00-0500 Body temperature 96.8 [degF] Deacon Kat MD Work Phone: [facility] 03-05-2022 09:33-0500 Body weight 89.81 kg Breanna Stern BRANCH SERVICE ASSOCIATE.APPLICATION SECURITY ARCHITECT Work Phone: [facility] 02-04-2022 09:23-0500 Body height 167.[address] Work Phone: [facility] 02-04-2022 09:23-0500 Body weight 93.[address] Work Phone: [facility] 02-03-2022 14:55-0500 Body height 167.6 cm Breanna Stern BRANCH SERVICE ASSOCIATE.APPLICATION SECURITY ARCHITECT Work Phone: [facility] 02-03-2022 14:55-0500 Body temperature 97 [degF] Breanna Stern BRANCH SERVICE ASSOCIATE.APPLICATION SECURITY ARCHITECT Work Phone: [facility] 02-03-2022 14:55-0500 Body weight 93.44 kg Breanna Stern BRANCH SERVICE ASSOCIATE.APPLICATION SECURITY ARCHITECT Work Phone: [facility] 02-03-2022 14:55-0500 Diastolic blood pressure 81 mm[Hg] Breanna Stenr BRANCH SERVICE ASSOCIATE.APPLICATION SECURITY ARCHITECT Work Phone: [facility] 02-03-2022 14:55-0500 Heart rate 76 /min Breanna Jarred BRANCH SERVICE ASSOCIATE.APPLICATION SECURITY ARCHITECT Work Phone: [facility] 02-03-2022 14:55-0500 SaO2% (BldA) [Mass fraction] 99 % Breanna Jarred BRANCH SERVICE ASSOCIATE.APPLICATION SECURITY ARCHITECT Work Phone: [facility] 02-03-2022 14:55-0500 Systolic blood pressure 128 mm[Hg] Breanna Jarred BRANCH SERVICE ASSOCIATE.APPLICATION SECURITY ARCHITECT Work Phone: [facility] 01-28-2022 08:41-0500 Body height 167.6 cm Pacc 2 Work Phone: [facility] 01-28-2022 08:41-0500 Body temperature 97.9 [degF] Pacc 2 Work Phone: [facility] 01-28-2022 08:41-0500 Body weight 94.8 kg Pacc 2 Work Phone: [facility] 01-28-2022 08:41-0500 Diastolic blood pressure 85 mm[Hg] Pacc 2 Work Phone: [facility] 01-28-2022 08:41-0500 Heart rate 65 /min Pacc 2 Work Phone: [facility] 01-28-2022 08:41-0500 Respiratory rate 16 /min Pacc 2 Work Phone: [facility] 01-28-2022 08:41-0500 SaO2% (BldA) [Mass fraction] 100 % Pacc 2 Work Phone: [facility] 01-28-2022 08:41-0500 Systolic blood pressure 131 mm[Hg] Pacc 2 Work Phone: [facility] 01-02-2022 11:06-0500 Body weight 92.99 kg Sabina Joy BRANCH SERVICE ASSOCIATE.APPLICATION SECURITY ARCHITECT Work Phone: [facility] 12-25-2021 10:10-0500 Diastolic blood pressure 76 mm[Hg] Britt America MD Work Phone: [facility] 12-25-2021 10:10-0500 Heart rate 74 /min Britt Cross MD Work Phone: [facility] 12-25-2021 10:10-0500 Respiratory rate 18 /min Britt Cross MD Work Phone: [facility] 12-25-2021 10:10-0500 SaO2% (BldA) [Mass fraction] 100 % Britt Cross MD Work Phone: [facility] 12-25-2021 10:10-0500 Systolic blood pressure 140 mm[Hg] Britt Cross MD Work Phone: [facility] 12-25-2021 08:26-0500 Body height 167.6 cm Britt Cross MD Work Phone: [facility] 12-25-2021 08:26-0500 Body temperature 98.1 [degF] Britt Cross MD Work Phone: [facility] 12-25-2021 08:26-0500 Body weight 92.99 kg Britt Cross MD Work Phone: [facility] 10-09-2021 15:44-0400 Body height 167.6 cm Sabina Vacco BRANCH SERVICE ASSOCIATE.APPLICATION SECURITY ARCHITECT Work Phone: [facility] 10-09-2021 15:44-0400 Body weight 89.81 kg Sabina Vacco BRANCH SERVICE ASSOCIATE.APPLICATION SECURITY ARCHITECT Work Phone: [facility] 08-30-2021 03:47-0400 Diastolic blood pressure 70 mm[Hg] Pablo Atwood DO Work Phone: [employer] 08-30-2021 03:47-0400 Systolic blood pressure 130 mm[Hg] Pabol Atwood DO Work Phone: [employer] 08-30-2021 03:46-0400 Body temperature 100.4 [degF] Pablo Atwood DO Work Phone: [employer] 08-30-2021 03:46-0400 Heart rate 107 /min Pablo Atwood DO Work Phone: [employer] 08-30-2021 03:46-0400 Respiratory rate 19 /min Pablo Atwood DO Work Phone: [employer] 08-30-2021 03:46-0400 SaO2% (BldA) [Mass fraction] 96 % Pablo Atwood DO Work Phone: [facility] [employer] 08-28-2021 07:54-0400 Body height 167.[address] Work Phone: [facility] 08-28-2021 07:54-0400 Body weight 90.[address] Work Phone: [facility] 08-17-2021 12:00-0400 Body height 167.64 cm Shanna June Other [employer] Other 08-17-2021 12:00-0400 Body mass index (BMI) [Ratio] 33.08 kg/m2 Shanna June Other [employer] Other 08-17-2021 12:00-0400 Body temperature 98.1 [degF] Shanna June Other [employer] Other 08-17-2021 12:00-0400 Body weight 92.99 kg Shanna June Other [employer] Other 08-17-2021 12:00-0400 Diastolic blood pressure 80 mm[Hg] Shanna June Other [employer] Other 08-17-2021 12:00-0400 Respiratory rate 18 /min Shanna June Other [employer] Other 08-17-2021 12:00-0400 SaO2% (BldA) [Mass fraction] 99 % Shanna June Other [employer] Other 08-17-2021 12:00-0400 Systolic blood pressure 137 mm[Hg] Shanna Granadosault Other [employer] Other 07-27-2021 14:25-0400 Respiratory rate 18 /min Angela Do MD Work Phone: [employer] 07-27-2021 14:03-0400 SaO2% (BldA) [Mass fraction] 98 % Angela Do MD Work Phone: [employer] 07-27-2021 13:27-0400 Diastolic blood pressure 44 mm[Hg] Angela Do MD Work Phone: [employer] 07-27-2021 13:27-0400 Systolic blood pressure 110 mm[Hg] Angela Do MD Work Phone: [employer] 07-27-2021 10:18-0400 Body mass index (BMI) [Ratio] 31.47 kg/m2 Angela Do MD Work Phone: [employer] 07-27-2021 10:18-0400 Body temperature 98.6 [degF] Angela Do MD Work Phone: [employer] 07-27-2021 10:18-0400 Body weight 88.45 kg Angela Do MD Work Phone: [employer] 07-27-2021 10:18-0400 Heart rate 71 /min Angela Do MD Work Phone: [employer] 03-31-2021 11:00-0500 Body height 167.64 cm Shanna Granadosault Other [employer] Other 03-31-2021 11:00-0500 Body mass index (BMI) [Ratio] 33.08 kg/m2 Shanna Granadosault Other [employer] Other 03-31-2021 11:00-0500 Body temperature 98 [degF] Shanna Granadosault Other [employer] Other 03-31-2021 11:00-0500 Body weight 92.99 kg Shanna June Other [employer] Other 03-31-2021 11:00-0500 Diastolic blood pressure 91 mm[Hg] Shanna Granadosault Other [employer] Other 03-31-2021 11:00-0500 Respiratory rate 18 /min Shanna Granadosault Other [employer] Other 03-31-2021 11:00-0500 SaO2% (BldA) [Mass fraction] 100 % Shanna Granadosault Other [employer] Other 03-31-2021 11:00-0500 Systolic blood pressure 142 mm[Hg] Shanna Granadosault Other [employer] Other 01-28-2021 12:00-0500 Body height 167.64 cm Shanna Granadosault Other [employer] Other 01-28-2021 12:00-0500 Body mass index (BMI) [Ratio] 33.08 kg/m2 Shanna Granadosault Other [employer] Other 01-28-2021 12:00-0500 Body temperature 98 [degF] Shanna June Other [employer] Other 01-28-2021 12:00-0500 Body weight 92.99 kg Shanna June Other [employer] Other 01-28-2021 12:00-0500 Diastolic blood pressure 92 mm[Hg] Shanna June Other [employer] Other 01-28-2021 12:00-0500 Respiratory rate 18 /min Shanna June Other [employer] Other 01-28-2021 12:00-0500 SaO2% (BldA) [Mass fraction] 100 % Shanna June Other [employer] Other 01-28-2021 12:00-0500 Systolic blood pressure 143 mm[Hg] Shanna June Other [employer] Other 12-17-2020 17:30-0400 Body height 167.64 cm Shanna June Other [employer] Other 12-17-2020 17:30-0400 Body mass index (BMI) [Ratio] 32.92 kg/m2 Shanna June Other [employer] Other 12-17-2020 17:30-0400 Body temperature 98.2 [degF] Shanna June Other [employer] Other 12-17-2020 17:30-0400 Body weight 92.53 kg Shanna June Other [employer] Other 12-17-2020 17:30-0400 Diastolic blood pressure 71 mm[Hg] Shanna June Other [employer] Other 12-17-2020 17:30-0400 Respiratory rate 18 /min Shanna June Other [employer] Other 12-17-2020 17:30-0400 SaO2% (BldA) [Mass fraction] 100 % Shanna June Other [employer] Other 12-17-2020 17:30-0400 Systolic blood pressure 117 mm[Hg] Shanna June Other [employer] Other 12-14-2020 15:07-0400 Body height 167.6 cm Shanna June BRANCH SERVICE ASSOCIATE - TRUCK CAR AND BUS CLEANER Work Phone: [employer] Work Phone: 12-14-2020 15:07-0400 Body mass index (BMI) [Ratio] 32.77 kg/m2 Shanna June BRANCH SERVICE ASSOCIATE - TRUCK CAR AND BUS CLEANER Work Phone: [employer] Work Phone: 12-14-2020 15:07-0400 Body temperature 98.8 [degF] Shanna June BRANCH SERVICE ASSOCIATE - TRUCK CAR AND BUS CLEANER Work Phone: [employer] Work Phone: 12-14-2020 15:07-0400 Body weight 92.08 kg Shanna June BRANCH SERVICE ASSOCIATE - TRUCK CAR AND BUS CLEANER Work Phone: [employer] Phone: 12-14-2020 15:07-0400 Diastolic blood pressure 90 mm[Hg] Shanna June BRANCH SERVICE ASSOCIATE - TRUCK CAR AND BUS CLEANER Work Phone: [employer] Phone: 12-14-2020 15:07-0400 Heart rate 85 /min Shanna June BRANCH SERVICE ASSOCIATE - TRUCK CAR AND BUS CLEANER Work Phone: [employer] Work Phone: 12-14-2020 15:07-0400 Respiratory rate 20 /min Shanna June BRANCH SERVICE ASSOCIATE - TRUCK CAR AND BUS CLEANER Work Phone: [employer] Work Phone: 12-14-2020 15:07-0400 SaO2% (BldA) [Mass fraction] 100 % Shanna June BRANCH SERVICE ASSOCIATE - TRUCK CAR AND BUS CLEANER Work Phone: [employer] Work Phone: 12-14-2020 15:07-0400 Systolic blood pressure 139 mm[Hg] Shanna June BRANCH SERVICE ASSOCIATE - TRUCK CAR AND BUS CLEANER Work Phone: [employer] Work Phone: 07-02-2020 13:16-0400 Diastolic blood pressure 56 mm[Hg] Vaughn Ceja MD Work Phone: [employer] 07-02-2020 13:16-0400 Heart rate 71 /min Vaughn Ceja MD Work Phone: [employer] 07-02-2020 13:16-0400 Respiratory rate 18 /min Vaughn Ceja MD Work Phone: [employer] 07-02-2020 13:16-0400 SaO2% (BldA) [Mass fraction] 99 % Vaughn Ceja MD Work Phone: [employer] 07-02-2020 13:16-0400 Systolic blood pressure 165 mm[Hg] Vaughn Ceja MD Work Phone: [employer] 07-02-2020 12:44-0400 Body temperature 97.39 [degF] Vaughn Ceja MD Work Phone: [employer] 07-02-2020 12:35-0400 Body height 167.6 cm Vaughn Ceja MD Work Phone: [facility] 07-02-2020 12:35-0400 Body mass index (BMI) [Ratio] 37.12 kg/m2 Vaughn Ceja MD Work Phone: [facility] 07-02-2020 12:35-0400 Body weight 104.33 kg Vaughn Ceja MD Work Phone: [facility] 01-30-2020 17:34-0500 BP Di[facility] 76 mm[Hg] [facility] 01-30-2020 17:34-0500 BP Systolic 139 mm[Hg] [facility] 01-30-2020 17:34-0500 Pulse (Heart Rate) 87 /min [facility] 01-30-2020 17:34-0500 Pulse Oximetry 100 % [facility] 01-30-2020 17:34-0500 Respiratory Rate 18 /min [facility] 01-30-2020 13:22-0500 Height 167.6 cm [facility] 01-30-2020 13:16-0500 Body Temperature 97.81 [degF] [facility] Encounters Encounter Date Encounter Type Care Provider Facility Start: 08-04-2023 ambulatory Rajni Rouse [facility] [place] Start: 07-13-2023 ambulatory GABRIELLA GATICA [facility] [place] Start: 06-18-2023 End: 06-18-2023 Emergency department patient visit SERENA HAMM Facility:[facility] Start: 06-18-2023 End: 06-18-2023 ambulatory BREANNA STERN Facility:[facility] Start: 06-18-2023 End: 06-18-2023 Patient encounter procedure Breanna Stern APRN.APPLICATION SECURITY ARCHITECT Work Phone: General Surgery Comment on above: Sudden onset of sharon re abdominal pain (Primary Dx); Nausea and vomiting, unspecified vomiting type; PEG (percutaneous endoscopic gastrostomy) status (HCC) Start: 06-17-2023 Telephone encounter Rajni Ramey APRN.APPLICATION SECURITY ARCHITECT Work Phone: Pain Management Comment on above: Appointment Start: 06-17-2023 ambulatory SENIOR PUBLICATIONS SPECIALIST Jaquan L Cristhian Facil ity:[id number] Start: 06-15-2023 Telephone encounter Deacon shahid MD Work Phone: General Surgery Comment on above: Patient Update; Umm ent Question Start: 06-14-2023 Telephone encounter Stephanie pressley Burak DO Work Phone: [facility] Start: 06-14-2023 End: 06-15-2023 ambulatory SENIOR PUBLICATIONS SPECIALIST Jaquan L Cristhian Facility:[facility] Afsaneh cárdenase Start: 06-10-2023 End: 06-15-2023 ambulatory SENIOR PUBLICATIONS SPECIALIST Jaquan L Cristhian Facility:[id number] Start: 06-09-2023 End: 06-09-2023 [facility] Pablo Lebron PSYD Work Phone: Neurology Comment on above: ARSALAN (generalized anx iety disorder) (Primary Dx); Panic disorder without agoraphobia; Moderate recurrent major depression (HCC) Start: 06-06-2023 End: 06-09-2023 Evaluation and management of inpatient JAQUAN L CRISTHIAN Facility:[facility] Start: 06-03-2023 End: 06-03-2023 ambulatory [facility] Facility:[facility] Start: 06-02-2023 End: 06-03-2023 ambulatory SENIOR PUBLICATIONS SPECIALIST Jaquan L Cristhian Facility:[facility] Afsaneh suarez Start: 06-01-2023 End: 06-01-2023 ambulatory Vic Ramos MD Work Phone: Pain Management Comment on above: Neuralgia and neurit is (Primary Dx); Gastroesophageal reflux disease without esophagitis; Median arcuate ligament syndrome (HCC); S/P gastric bypass Start: 06-01-2023 End: 06-01-2023 Telemedicine consultation with patient Vic Ramos MD Work Phone: [facility] Start: 05-31-2023 End: 06-09-2023 ambulatory SENIOR PUBLICATIONS SPECIALIST Jaquan L Cristhian Facility:[id number] Start: 05-30-2023 End: 05-31-2023 Emergency department patient visit Gabino Parker Facility:[facility] Start: 05-30-2023 End: 05-31-2023 Emergency department patient visit [employer]ER-C Jaquan Morrow Work Phone: [facility] Work Phone: Start: 05-30-2023 Telephone encounter Deacon shahid MD Work Phone: General Surgery Start: 05-28-2023 End: 05-29-2023 Refill Kasie Avalos MD Work Phone: Gastroenterology Comment on above: Refill Request Medication Problem Start: 05-25-2023 End: 05-28-2023 Evaluation and management of inpatient DEACON KAT Facility:[facility] Start: 05-24-2023 Telephone encounter Deacon shahid MD Work Phone: General Surgery Comment on above: Patient Education; C are Coordinator - Other Start: 05-24-2023 End: 05-26-2023 ambulatory SENIOR PUBLICATIONS SPECIALIST Jaquan Cristhian Facility:[id number] Start: 05-20-2023 End: 05-20-2023 Emergency department patient visit TIFFANIE BELLA KEITH Facility:[facility] Start: 05-19-2023 End: 05-20-2023 ambulatory SENIOR PUBLICATIONS SPECIALIST Jaquan L Cristhian Facility:[facility] Afsaneh suarez Start: 05-18-2023 End: 05-22-2023 Evaluation and management of inpatient DEACON KAT Facility:[facility] Start: 05-17-2023 End: 05-17-2023 ambulatory JAQUAN L CRISTHIAN Facility:[facility] Start: 05-17-2023 End: 05-17-2023 Emergency department patient visit Ashutosh Hai Jose Ramon Facility[place] Start: 05-17-2023 End: 05-17-2023 ambulatory Deacon Kat MD Work Phone: General Surgery Comment on above: Nausea and vomiting, unspecified vomiting type (Primary Dx) Start: 05-17-2023 End: 05-17-2023 Telemedicine consultation with patient Daecon Kat MD Work Phone[facility] Start: 05-17-2023 End: 05-17-2023 Emergency department patient visit Ashutosh Albright [facility] Start: 05-17-2023 End: 05-19-2023 ambulatory SENIOR PUBLICATIONS SPECIALIST Jaquan L Cristhian Facility:[id number] Start: 05-12-2023 End: 05-14-2023 ambulatory Jon Rivera Facility:[facility] [place] Start: 05-12-2023 End: 05-14-2023 Observation Moncho Trejo [facility] Start: 05-11-2023 End: 05-11-2023 Emergency department patient visit Mateusz Garcia Facility:[facility] [place] Start: 05-11-2023 End: 05-11-2023 Emergency department patient visit Mateusz Garcia [facility] Start: 05-10-2023 End: 05-11-2023 ambulatory SENIOR PUBLICATIONS SPECIALIST Jaquan L Cristhian Facility:[facility] Afsaneh suarez Start: 05-10-2023 Telephone encounter Deacon shahid MD Work Phone: General Surgery Comment on above: Patient Question Start: 05-09-2023 End: 05-09-2023 Emergency department patient visit Mateusz Garcia Facility:[facility] [place] Start: 05-09-2023 End: 05-09-2023 Emergency department patient visit Mateusz Garcia [facility] Start: 05-07-2023 Telephone encounter Santa Hart RN Ambulatory Surgery Comment on above: Appointment (Cancel EGD) Start: 05-06-2023 End: 05-06-2023 Emergency department patient visit Mateusz Garcia Facility:[facility] [place] Start: 05-06-2023 End: 05-06-2023 Emergency department patient visit Mateusz Garcia [facility] Start: 04-30-2023 End: 05-01-2023 ambulatory SENIOR PUBLICATIONS SPECIALIST Jaquan Morrow Facility:[facility] Afsaneh suarez Start: 04-28-2023 End: 04-28-2023 ambulatory KASIE AVALOS Facility:[facility] Start: 04-28-2023 End: 04-28-2023 Patient encounter procedure Kasie Avalos MD Work Phone: Gastroenterology Comment on above: Gastroesophageal ref lux disease, unspecified whether esophagitis present (Primary Dx); Constipation, unspecified constipation type Start: 04-20-2023 End: 04-20-2023 ambulatory SHERRY [facility] Start: 04-20-2023 End: 04-20-2023 Office outpatient visit 10 minutes Sherry Magaña MD Work Phone: [facility] Comment on above: Median arcuate ligam ent syndrome (CMS/HCC) (Primary Dx) Start: 04-07-2023 End: 04-07-2023 ambulatory [facility] Start: 04-07-2023 End: 04-07-2023 ambulatory SELF Facility:[facility] Start: 04-07-2023 End: 04-07-2023 Postop follow up visit related to original px Sherry Magaña MD Work Phone: [facility] Comment on above: Median arcuate ligam ent syndrome (CMS/HCC) (Primary Dx) Start: 04-07-2023 End: 04-07-2023 Admission to same day surgery center Deacon Kat MD Work Phone: Endocrinology BMI Comment on above: Bariatric surgery st atus (Primary Dx); Dietary zinc deficiency; Vitamin D deficiency Start: 04-07-2023 End: 04-07-2023 Telemedicine consultation with patient Deacon Kat MD Work Phone: [facility] Start: 04-06-2023 End: 04-06-2023 Emergency department patient visit Jaquan Morrow Facility:[facility] Start: 04-06-2023 End: 04-06-2023 Emergency department patient visit TRUCK CAR AND BUS CLEANER-C Jaquan Morrow Work Phone: [facility] Work Phone: Start: 04-02-2023 End: 04-02-2023 Emergency department patient visit Ashutosh Albright Facility[place] [place] Start: 04-02-2023 End: 04-02-2023 Emergency department patient visit Ashutosh Albright [facility] Start: 03-24-2023 End: 03-25-2023 ambulatory SENIOR PUBLICATIONS SPECIALIST Jaquan Morrow Facility:[facility] Afsaneh suarez Start: 03-16-2023 End: 03-20-2023 [facility] Start: 03-16-2023 End: 03-20-2023 Evaluation and management of inpatient Melisa Barker MD Work Phone: [facility] Comment on above: Abdominal pain (Prim reji Dx); Nausea and vomiting, unspecified vomiting type; History of gastric bypass; Median arcuate ligament syndrome (CMS/HCC) Start: 03-16-2023 End: 03-16-2023 Emergency department patient visit Earnest Jett Facility:[facility] [place] Start: 03-16-2023 End: 03-16-2023 Emergency department patient visit Earnest Jett [facility] Start: 03-15-2023 End: 03-15-2023 Emergency department patient visit Earnest eJtt Facility:[facility] [place] Start: 03-15-2023 End: 03-15-2023 Emergency department patient visit Earnest Jett [facility] Start: 03-05-2023 End: 03-10-2023 Evaluation and management of inpatient [place] Sandra MAGAÑA [facility] Start: 03-05-2023 End: 03-10-2023 Evaluation and management of inpatient Sherry Magaña MD Work Phone: [facility] Comment on above: Median arcuate ligam ent syndrome (CMS/HCC) (Primary Dx) Start: 03-02-2023 End: 03-03-2023 ambulatory NO ASSIGNED PCP GENERIC PROVIDER [facility] Start: 03-02-2023 End: 03-03-2023 Encounter for other preprocedural examination NO ASSIGNED PCP GENERIC PROVIDER [facility] Start: 02-13-2023 End: 02-13-2023 Emergency department patient visit Jaquan Morrow Facility:[facility] Start: 02-13-2023 End: 02-13-2023 Emergency department patient visit TRUCK CAR AND BUS CLEANER-C Jaquan Cristhian Work Phone: [facility] Work Phone: Start: 02-12-2023 End: 02-12-2023 Emergency department patient visit NO ASSIGNED PCP GENERIC PROVIDER [facility] Start: 02-10-2023 End: 02-10-2023 ambulatory JAQUAN L CRISTHIAN Facility:[facility] Start: 02-03-2023 End: 02-04-2023 ambulatory SENIOR PUBLICATIONS SPECIALIST Jaquan L Cristhian Facility:[facility] Afsaneh suarez Start: 01-15-2023 Telephone encounter Deacon shahid MD Work Phone: Endocrinology BMI Comment on above: Patient Question; Pa tient Update Start: 01-14-2023 End: 01-15-2023 ambulatory Vic Ramos MD Work Phone: Pain Management Comment on above: Waitlist Start: 01-13-2023 End: 01-13-2023 Emergency department patient visit NO ASSIGNED PCP GENERIC PROVIDER [facility] Start: 01-11-2023 Orders Only Vic Conner am, MD Work Phone: Pain Management Comment on above: Chronic pain syndrom e (Primary Dx) Pain Management Proc edure missed call Start: 01-08-2023 End: 01-08-2023 ambulatory JAQUAN L CRISTHIAN Facility:[facility] Start: 01-08-2023 End: 01-08-2023 ambulatory Vic Ramos MD Work Phone: Pain Management Comment on above: 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); Neuralgia and neuritis Start: 01-08-2023 End: 01-08-2023 Telemedicine consultation with patient Vic Ramos MD Work Phone: [facility] Start: 01-06-2023 Telephone encounter Vic saldana MD Work Phone: Pain Management Comment on above: Appointment Start: 12-31-2022 End: 12-31-2022 Emergency department patient visit Mateusz Garcia Facility:[facility] [place] Start: 12-31-2022 End: 12-31-2022 Emergency department patient visit Mateusz Garcia [facility] Start: 12-29-2022 End: 12-30-2022 ambulatory SENIOR PUBLICATIONS SPECIALIST Jaquan L Cristhian Facility:[facility] Afsaneh erick Start: 12-28-2022 Telephone encounter Deacon shahid MD Work Phone: General Surgery Comment on above: Patient Update; Orde rs Start: 12-21-2022 End: 12-21-2022 ambulatory [facility] Start: 12-14-2022 End: 12-14-2022 ambulatory Deacon Kat MD Work Phone: Endocrinology BMI Comment on above: Worsening Symptoms S evere Abdominal pain, unsp ecified abdominal location (Primary Dx) Start: 12-14-2022 End: 12-15-2022 Emergency department patient visit JAQUAN MORROW [facility] Start: 12-14-2022 End: 12-14-2022 Telemedicine consultation with patient Deacon Kat MD Work Phone: [facility] Start: 12-09-2022 ambulatory SENIOR PUBLICATIONS SPECIALIST Jaquan L Cristhian Facil ity:[facility] Debo Start: 12-06-2022 End: 12-09-2022 Evaluation and management of inpatient ROMIE HAIRSTON Facility:[facility] Start: 12-04-2022 End: 12-05-2022 ambulatory JAQUAN L CRISTHIAN Facility:[facility] Start: 12-04-2022 End: 12-04-2022 Patient encounter procedure Agustin Zamorano MD Work Phone: General Surgery Comment on above: Generalized abdomina l pain (Primary Dx) Start: 12-03-2022 Telephone encounter Oliva Dobbs RN General Surgery Start: 12-01-2022 End: 12-02-2022 ambulatory Lokesh Maile Harrison Facility:[facility] Afsaneh suarez Start: 12-01-2022 Telephone encounter Deacon shahid MD Work Phone: Endocrinology BMI Comment on above: Patient Update Start: 11-27-2022 End: 12-03-2022 Evaluation and management of inpatient CAMDEN Ahumada KP [facility] Start: 11-26-2022 ambulatory JAQUAN L CRISTHIAN Facility: [facility] Start: 11-26-2022 End: 11-26-2022 Subsequent hospital visit by physician Jing/ [facility] Work Phone: CARDIOVASCULAR TESTING Comment on above: Chronic nausea [R11. 0] Start: 11-26-2022 End: 11-26-2022 ambulatory JAQUAN L CRISTHIAN Facility:[facility] Start: 11-25-2022 Telephone encounter [facility] Work Phone: Chronic Care Start: 11-25-2022 End: 11-26-2022 ambulatory SENIOR PUBLICATIONS SPECIALIST Jaquan L Cristhian Facility:[facility] Afsaneh cárdenase Start: 11-23-2022 Telephone encounter Deacon shahid MD Work Phone: Endocrinology BMI Comment on above: Patient Update Start: 11-22-2022 End: 11-23-2022 ambulatory JAQUAN L CRISTHIAN [facility] Start: 11-17-2022 End: 11-18-2022 ambulatory Deacon Kat MD Work Phone: Endocrinology BMI Comment on above: On-Call Surgeon - Se nt to ER Start: 11-16-2022 End: 11-17-2022 Refill Deacon Kat MD Work Phone: Endocrinology BMI Start: 11-16-2022 End: 11-16-2022 Lab Drop off Jaquan L Cristhian [facility] Start: 11-14-2022 ambulatory Deacon sousa MD Work Phone: [facility] Start: 11-14-2022 Nutrition therapy Deacon turner MD Work Phone: Endocrinology BMI Comment on above: IV Nutrition Start: 11-13-2022 End: 11-13-2022 ambulatory PABLO LEBRON Facility:[facility] Start: 11-11-2022 End: 11-12-2022 ambulatory DEACON KAT Facility:[facility] Start: 11-10-2022 End: 11-10-2022 ambulatory RYLEE THACKER Facility:[facility] Start: 11-09-2022 Telephone encounter Deacon shahid MD Work Phone: Endocrinology BMI Comment on above: Surgery Rescheduled Start: 11-06-2022 ambulatory [facility] RT(R) [facility] Radiology Molecular Comment on above: Radiology NM Start: 11-06-2022 Patient encounter procedure [facility] RT() [facility] Start: 11-06-2022 Telephone encounter Deacon shahid MD Work Phone: Endocrinology BMI Comment on above: Patient Update Start: 11-05-2022 End: 11-08-2022 ambulatory JAQUAN L CRISTHIAN Facility:[facility] Start: 11-04-2022 End: 11-04-2022 Patient encounter procedure Deacon Kat MD Work Phone: Endocrinology BMI Comment on above: Nausea (Primary Dx); RUQ pain; History of cholecystectomy Dehydration (Primary Dx); RUQ pain Right knee pain, uns pecified chronicity (Primary Dx) Start: 11-04-2022 End: 11-05-2022 ambulatory BREANNA STERN Facility:[facility] Start: 11-04-2022 End: 11-04-2022 ambulatory Jacklyn Mccain 5 Jenane Work Phone: Infusion Start: 11-04-2022 End: 11-04-2022 ambulatory JAQUAN L CRISTHIAN Facility:[facility] Start: 11-04-2022 End: 11-04-2022 Subsequent hospital visit by physician Trudy Johnson Work Phone: [facility] Radiology Ultrasound Comment on above: Nausea [R11.0] Start: 11-03-2022 End: 11-04-2022 ambulatory SENIOR PUBLICATIONS SPECIALIST Jaquan L Cristhian Facility:[facility] Start: 11-02-2022 Refill Haroon ahumada BRANCH SERVICE ASSOCIATE.APPLICATION SECURITY ARCHITECT Work Phone: Neurology Start: 11-02-2022 End: 11-02-2022 Emergency department patient visit DIMITRI WALKER [facility] Start: 11-02-2022 End: 11-02-2022 Emergency department patient visit Dimitri Walker MD Work Phone: [facility] Emergency Department Start: 11-01-2022 ambulatory Deacon sousa MD Work Phone: Endocrinology BMI Comment on above: Worsening Symptoms Problem Start: 10-31-2022 Refill Breanna Stern APRN.APPLICATION SECURITY ARCHITECT Work Phone: General Surgery Comment on above: Refill Request Start: 10-31-2022 End: 10-31-2022 Emergency department patient visit WALLY Graf FOLEY [facility] Start: 10-31-2022 End: 10-31-2022 Emergency department patient visit Jalyn Galvan Demetrice VALENZUELA Work Phone: [facility] ED Comment on above: Back strain, initial encounter (Primary Dx) Start: 10-29-2022 End: 11-30-2022 ambulatory SENIOR PUBLICATIONS SPECIALIST Jaquan L Cristhian Facility:CD:[id number] Start: 10-27-2022 End: 10-27-2022 ambulatory KEESHA MOSS [facility] Start: 10-26-2022 End: 10-27-2022 ambulatory SENIOR PUBLICATIONS SPECIALIST Jaquan L Cristhian Facility:[facility] Afsaneh erick Start: 10-25-2022 End: 10-28-2022 ambulatory JAQUAN L CRISTHIAN [facility] Start: 10-24-2022 ambulatory Deacon sousa MD Work Phone: Endocrinology BMI Comment on above: Symptoms Start: 10-23-2022 End: 10-23-2022 Emergency department patient visit [facility] Start: 10-21-2022 End: 10-22-2022 ambulatory SENIOR PUBLICATIONS SPECIALIST [facility] Facility[facility] Start: 10-21-2022 End: 10-21-2022 Emergency department patient visit [facility] Facility:[facility] Start: 10-20-2022 Telephone encounter Deacon shahid MD Work Phone: General Surgery Comment on above: Patient Question; Na usea & Vomiting Start: 10-20-2022 End: 10-20-2022 Emergency department patient visit Earnest Jett Facility:[facility] [place] Start: 10-20-2022 End: 10-20-2022 Emergency department patient visit Earnest Jett [facility] Start: 10-19-2022 ambulatory Breanna Stern APRN.CNP Work Phone: General Surgery Comment on above: Worsening Symptoms Start: 10-19-2022 End: 10-19-2022 Emergency department patient visit Earnest Jett Facility:[facility] [place] Start: 10-19-2022 End: 10-19-2022 Emergency department patient visit Earnest Jett [facility] Start: 10-18-2022 Emergency department patient visit [facility] Facility:[facility] Start: 10-17-2022 End: 10-17-2022 Emergency department patient visit [facility] Start: 10-15-2022 Refill Kasie Avalos MD Work Phone: Gastroenterology Comment on above: Refill Request Start: 10-07-2022 End: 10-08-2022 ambulatory SENIOR PUBLICATIONS SPECIALIST [facility] Facility:[facility] Start: 10-05-2022 End: 10-05-2022 [facility] Pablo Lebron PSYD Work Phone: Neurology [...] Xiomara Martinez RD Work Phone: [facility] Start: 09-22-2022 End: 09-22-2022 ambulatory RYLEE TAHCKER Facility:[facility] Start: 09-21-2022 End: 09-21-2022 [facility] Pablo Lebron PSYD Work Phone: Neurology Comment on above: ARSALAN (generalized anx iety disorder) (Primary Dx); Panic disorder without agoraphobia; Moderate recurrent major depression (HCC) Start: 09-18-2022 End: 09-18-2022 ambulatory WALLY FOLEY Facility:[facility] Start: 09-18-2022 End: 09-18-2022 Patient [...] Start: 07-29-2022 End: 07-30-2022 ambulatory Rajni Rouse Facility:[facility] Start: 07-29-2022 End: 07-29-2022 Patient encounter procedure Rajni Rouse [facility] Start: 07-28-2022 End: 07-29-2022 ambulatory BERNARDO BRENNER Facility:[facility] Start: 07-28-2022 End: 07-28-2022 Patient [...] 07-22-2022 End: 07-22-2022 ambulatory JAQUAN L CRISTHIAN Facility:[facility] Start: 07-22-2022 End: 07-22-2022 Patient encounter [facility] Work Phone: Ophthalmology Comment on above: Vernal conjunctiviti s of both eyes (Primary Dx) Start: 07-22-2022 Refill Kasie Avalos MD Work Phone: Gastroenterology Comment on above: Med Change Request Start: 07-22-2022 End: 07-22-2022 Emergency department patient visit JAQUAN L CRISTHIAN Facility:[facility] Start: 07-22-2022 End: 07-23-2022 ambulatory JAQUAN L CRISTHIAN Facility:[facility] Start: 07-22-2022 End: 07-22-2022 Patient encounter procedure Kasie Avalos MD Work Phone: Gastroenterology Comment on above: Constipation, unspec ified constipation type (Primary Dx); Nausea; Rash of face; Enlarged lymph nodes Start: 07-20-2022 End: 07-21-2022 ambulatory SENIOR PUBLICATIONS SPECIALIST Jaquan L Cristhian Facility:[facility] [place] Start: 07-20-2022 End: 07-20-2022 Lab Drop off Jaquan L Cristhian [facility] Start: 06-30-2022 ambulatory SENIOR PUBLICATIONS SPECIALIST Jaquan Cristhian Facilit y:[facility] Start: 06-26-2022 End: 06-27-2022 ambulatory SENIOR PUBLICATIONS SPECIALIST Jaquan L Cristhian Facility:[facility] Afsaneh suarez Start: 06-23-2022 End: 06-23-2022 Evaluation and management of inpatient MARICRUZ GARCIA Facility:[facility] Start: 06-20-2022 End: 06-24-2022 Evaluation and management of inpatient MARCEL HARRY Facility:[facility] Start: 06-18-2022 End: 06-18-2022 ambulatory CIARA BELLO Facility:[facility] Start: 06-18-2022 End: 06-18-2022 ambulatory Ciara Wu QUIROZ Work Phone: [facility] Comment on above: Encounter to discuss test results (Primary Dx); NO SHOW Start: 06-18-2022 End: 06-18-2022 Telemedicine consultation with patient Ciara Lentzluis QUIROZ Work Phone: [facility] Start: 06-16-2022 End: 06-16-2022 Emergency department patient visit CORIE MEDEL Facility:[facility] Start: 06-12-2022 End: 06-12-2022 Patient encounter procedure Ciara Bello GABRIELLA Work Phone: [facility] Comment on above: Polyarthralgia (Prim reji Dx); Malaise and fatigue; Subjective fever; S/P laparoscopic sleeve gastrectomy; History of syncope; History of adrenal insufficiency; Hypothyroidism, unspecified type Start: 06-11-2022 End: 07-24-2022 Pre-admission assessment Rui Joyner [facility] Start: 06-10-2022 End: 06-10-2022 Emergency department patient visit Sanchojessenia Valles Jose Ramon [facility] Start: 06-09-2022 End: 06-09-[address] DOCTOR CARRERA Facility:[facility] Start: 05-22-2022 End: 05-23-[address] WALLY FOLEY . Facility:[facility] Start: 03-30-2022 ambulatory Breanna Stern APRN.CNP Work Phone: [facility] Start: 03-30-2022 Patient encounter procedure Breanna Stern APRN.APPLICATION SECURITY ARCHITECT Work Phone: General Surgery Comment on above: Cancel Appointment C annot Reach Anyone Start: 03-06-2022 End: 03-06-2022 Subsequent hospital visit by physician Deacon Kat MD Work Phone: [facility] Endoscopy - ENDO Comment on above: Esophageal dysphagia [R13.19] Start: 03-05-2022 Telephone encounter Li márquez RN Work Phone: Endocrinology BMI Comment on above: EGD Instructions Start: 03-05-2022 End: 03-05-2022 ambulatory Breanna Stern BRANCH SERVICE ASSOCIATE.APPLICATION SECURITY ARCHITECT Work Phone: General Surgery Comment on above: Esophageal dysphagia (Primary Dx); S/P gastric bypass; Postoperative malabsorption Start: 03-05-2022 End: 03-05-2022 Telemedicine consultation with patient Breanna Stern APRN.APPLICATION SECURITY ARCHITECT Work Phone: [facility] Start: 03-02-2022 End: 03-03-[address] WALLY FOLEY . Facility: Start: 02-17-2022 End: 02-18-[address] WALLY FOLEY . Facility: Start: 02-13-2022 End: 02-13-2022 Patient encounter procedure Kuldip Yousif MD Work Phone: [facility] Comment on above: Acetabular labrum te ar, right, subsequent encounter (Primary Dx) Start: 02-05-2022 Orders Only Deacon sousa MD Work Phone: Endocrinology BMI Comment on above: Postoperative pain Start: 02-04-2022 ambulatory Deacon sousa MD Work Phone: [facility] Start: 02-04-2022 Follow-up encounter Deacon shahid MD Work Phone: Endocrinology BMI Comment on above: Surgery Follow-Up Start: 02-04-2022 End: 02-04-2022 Admission to same day surgery center Montrell Tamez RD Work Phone: Nutrition Therapy Comment on above: S/P gastric surgery (Primary Dx); Dietary counseling Start: 02-04-2022 End: 02-04-2022 Telemedicine consultation with patient Montrell Tamez RD Work Phone: [facility] Start: 02-03-2022 End: 02-03-2022 Patient encounter procedure Breanna Stern BRANCH SERVICE ASSOCIATE.APPLICATION SECURITY ARCHITECT Work Phone: General Surgery Comment on above: S/P bariatric surger y (Primary Dx); Postoperative pain; Primary osteoarthritis involving multiple joints Start: 02-02-2022 Telephone encounter Deacon shahid MD Work Phone: General Surgery Comment on above: Medication Question Start: 01-31-2022 ambulatory Deacon sousa MD Work Phone: Endocrinology BMI Comment on above: Home prescription qu estion Start: 01-28-2022 End: 01-28-2022 [facility] Work Phone: [facility] Start: 01-28-2022 End: 01-28-2022 ambulatory Pac 2 [...] p. GJ revision) Start: 01-02-2022 End: 01-02-2022 [facility] Sabina Joy BRANCH SERVICE ASSOCIATE.APPLICATION SECURITY ARCHITECT Work Phone: General Surgery Comment on above: [...] Revision Question Start: 12-25-2021 Chart abstracting Mateusz ross Research Coordinator Gastroenterology Comment on above: Informed [...] Kat Start: 11-18-2021 Patient Update Breanna Stern APRN.APPLICATION SECURITY ARCHITECT Work Phone: Endocrinology BMI Comment on above: Orders (pH Impedence ) Start: 11-17-2021 End: 11-17-2021 Telemedicine consultation with patient Deacon Kat MD Work Phone: [facility] Start: 11-17-2021 End: 11-17-2021 ambulatory Deacon Kat MD Work Phone: Endocrinology BMI Comment on above: Gastroesophageal ref lux disease without esophagitis (Primary Dx) Refill Request; Refi ll Request Start: 10-27-2021 End: 10-28-[address] WALLY FOLEY . Facility: Start: 10-21-2021 Telephone encounter Kuldip mckeon MD Work Phone: [facility] Comment on above: Appointment Start: 10-09-2021 End: 10-09-2021 [facility] Sabina Benita MSALLS.APPLICATION SECURITY ARCHITECT Work Phone: General Surgery Comment on above: Gastroesophageal ref lux disease, unspecified whether esophagitis present (Primary Dx); Bariatric surgery status; Weight disorder; Class 1 obesity with serious comorbidity and body mass index (BMI) of 31.0 to 31.9 in adult, unspecified obesity type; S/P laparoscopic sleeve gastrectomy; Dietary counseling and surveillance Start: 10-08-2021 ambulatory Kuldip Yousif MD Work Phone: [facility] Start: 10-08-2021 Patient encounter procedure Kuldip Yousif MD Work Phone: [facility] Comment on above: Appointment Time Tod ay Start: 10-04-2021 End: 10-05-[address] WALLY FOLEY . Facility: Start: 08-30-2021 End: 08-30-2021 Emergency department patient visit Pablo Atwood DO Work Phone: [facility] Comment on above: Dental infection (Pr imary Dx) Start: 08-29-2021 End: 08-29-2021 ambulatory Justine Shabazz PA-C Work Phone: [facility] Comment on above: Tear of right acetab ular labrum, subsequent encounter (Primary Dx) Start: 08-29-2021 End: 08-29-2021 Telemedicine consultation with patient Justine Shabazz PA-C Work Phone: [facility] [address] Start: 08-28-2021 Refill Justine ardon PA-C Work Phone: [facility] Comment on above: Refill Request Start: 08-28-2021 End: 08-28-2021 ambulatory Xiomara Martinez DADA Work Phone: General Surgery Comment on above: S/P laparoscopic sle dee dee gastrectomy (Primary Dx); Obesity, Class I, BMI 30-34.9; Dietary counseling and surveillance Start: 08-28-2021 End: 08-28-2021 Telemedicine consultation with patient Xiomara Martinez RD Work Phone: [facility] Start: 08-25-2021 Encounter for genera l adult medical examination without abnormal findings SHANNA JUNE [facility] Start: 08-24-2021 ambulatory Deacon sousa MD Work Phone: Endocrinology BMI Comment on above: Possible Revision Di scussion Start: 08-22-2021 End: 08-22-2021 Refill Kasie Avalos MD Work Phone: Gastroenterology Comment on above: Refill Request Start: 08-22-2021 Telephone encounter Shanna hooks [facility] Start: 08-21-2021 End: 08-22-2021 Encounter for general adult medical examination without abnormal findings DR WALLY FOLEY . Facility:[facility] Start: 08-21-2021 End: 08-22-[address] WALLY FOLEY . Facility:[facility] Start: 08-19-2021 End: 08-20-[address] WALLY FOLEY . Facility:[facility] Start: 08-17-2021 End: 08-17-2021 ambulatory Shanna June Other [employer] Other Start: 08-17-2021 Office outpatient vi sit 15 minutes Shanna June [facility] Start: 08-14-2021 Refill Justine ardon PA-C Work Phone: [facility] Comment on above: Refill Request Start: 08-01-2021 End: 08-01-2021 ambulatory Justine Shabazz PA-C Work Phone: [facility] Comment on above: Tear of right acetab ular labrum, subsequent encounter (Primary Dx) Start: 08-01-2021 End: 08-01-2021 Telemedicine consultation with patient Justine Johnsonc PA-C Work Phone: [facility] [address] Start: 07-30-2021 End: 07-30-[address] KIERSTEN RENNER . Facility:[facility] Start: 07-28-2021 ambulatory Justine Johnson Banj ac PA-C Work Phone: [facility] [address] Start: 07-28-2021 Patient encounter procedure Justine Johnson Banjac PA-C Work Phone: [facility] Comment on above: Virtual Appointment Start: 07-27-2021 End: 07-27-2021 Emergency department patient visit Angela Do MD Work Phone: [facility] Comment on above: Generalized abdomina l pain (Primary Dx) Start: 07-14-2021 ambulatory Justine Johnson Banj ac PA-C Work Phone: [facility] [place] Comment on above: Medication Start: 07-11-2021 End: 08-26-[address] DOCTOR CARRERA Facility:[facility] Start: 07-04-2021 End: 07-04-2021 ambulatory Justine Johnson Banjac PA-C Work Phone: [facility] [place] Comment on above: Tear of right acetab ular labrum, subsequent encounter (Primary Dx) Start: 07-04-2021 End: 07-04-2021 Telemedicine consultation with patient Justine Johnsonc PA-C Work Phone: [facility] [address] Start: 06-23-2021 Admission to [facility] Jace Duarte AT Work Phone: [facility] [place] Comment on above: Schedule Surgery Start: 06-23-2021 ambulatory Jace solomon AT Work Phone: [facility] [address] Start: 06-18-2021 End: 06-18-2021 Patient encounter procedure Kuldip Yousif MD Work Phone: [employer] [facility] Comment on above: Acetabular labrum te ar, right, initial encounter (Primary Dx) Start: 06-02-2021 ambulatory LUCIE Foster lity:[facility] LOC Start: 06-02-2021 End: 06-02-2021 Office outpatient visit 15 minutes Lucie Mora MD Work Phone: [facility] Comment on above: 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) Start: 04-02-2021 End: 04-02-2021 ambulatory Shanna June Other [employer] Other Start: 04-02-2021 Telephone encounter Shanna hooks [facility] Start: 03-31-2021 End: 03-31-2021 ambulatory Shanna June Other [employer] Other Start: 03-31-2021 Office outpatient vi sit 15 minutes Shanna June [facility] Start: 03-10-2021 End: 03-10-2021 ambulatory Shanna June Other [employer] Other Start: 03-10-2021 Telephone encounter Shanna hooks [facility] Start: 01-28-2021 End: 01-28-2021 ambulatory Shanna June Other [employer] Other Start: 01-28-2021 Office outpatient vi sit 15 minutes Shanna June [facility] Start: 12-17-2020 End: 12-17-2020 ambulatory Shanna June Other [employer] Other Start: 12-17-2020 Encounter for genera l adult medical examination without abnormal findings Shanna June [facility] Start: 12-17-2020 Periodic preventive med est patient 18-39 yrs Shanna June [facility] Start: 12-14-2020 End: 12-14-2020 Emergency department patient visit Shanna June BRANCH SERVICE ASSOCIATE - [employer] Work Phone: [facility] Comment on above: Contusion of right t humb without damage to nail, initial encounter (Primary Dx) Start: 12-09-2020 ambulatory LUCIE Carito MORA Faci lity:[facility] LOC Start: 07-02-2020 End: 07-02-2020 Emergency department patient visit Vaughn Ceja MD Work Phone: [facility] Emergency Department Start: 01-30-2020 End: 01-30-2020 Emergency department patient visit Agustin Hai Gustafson Work Phone: [facility] Emergency Department Start: 09-25-2019 Preprocedural examination done Kuldip Yousif MD Work Phone: [facility] Work Phone: Start: 09-10-2017 End: 09-11-2017 Patient encounter DEFAULT PHYSICIAN Facility:[facility] Procedures Date Procedure Procedure Detail Performing Clinician Start: 05-30-2023 Computed tomography of abdomen and pelvis with contrast PAO Morrow Work Phone: Start: 05-12-2023 Esophagogastroduodenoscopy Moncho ahumada Start: 04-06-2023 Computed tomography of abdomen and pelvis with contrast PAO Morrow Work Phone: Start: 03-20-2023 DISCHARGE PATIENT [facility] Start: 03-19-2023 DISCHARGE PATIENT [facility] Start: 03-19-2023 Esophagogastroduodenoscopy [facility] Start: 03-19-2023 SURGICAL PATHOLOGY EXAM [facility] Start: 03-19-2023 Egd transoral biopsy single/multiple Deepika Roy BRANCH SERVICE ASSOCIATE-APPLICATION SECURITY ARCHITECT Work Phone: Start: 03-19-2023 CBC panel - Blood by Automated count [employer] Start: 03-19-2023 Comprehensive metabolic 2000 panel - Serum or Plasma [facility] Start: 03-19-2023 Comprehensive metabolic panel Tiffanie Cruz all BRANCH SERVICE ASSOCIATE-APPLICATION SECURITY ARCHITECT Work Phone: Start: 03-18-2023 CBC panel - Blood by Automated count [facility] Start: 03-18-2023 Comprehensive metabolic 2000 panel - Serum or Plasma [facility] Start: 03-18-2023 Comprehensive metabolic panel Tiffanie Cruz all BRANCH SERVICE ASSOCIATE-APPLICATION SECURITY ARCHITECT Work Phone: Start: 03-17-2023 XR CHEST 1 VIEW [facility] Start: 03-17-2023 Radiologic exam chest single view Tiffanie Mendez BRANCH SERVICE ASSOCIATE-APPLICATION SECURITY ARCHITECT Work Phone: Start: 03-17-2023 FL UPPER GI W DOUBLE CONTRAST W SMALL BOWEL FOLLOW THROUGH [facility] Start: 03-17-2023 Radiologic exam upr gi trc double contrast study Tiffanie Mendez BRANCH SERVICE ASSOCIATE-APPLICATION SECURITY ARCHITECT Work Phone: Start: 03-17-2023 XR CHEST 1 VIEW [facility] [employer] Start: 03-17-2023 Radiologic exam chest single view Tiffanie Mendez BRANCH SERVICE ASSOCIATE-APPLICATION SECURITY ARCHITECT Work Phone: Start: 03-17-2023 CBC panel - Blood by Automated count [employer] Start: 03-17-2023 Comprehensive metabolic 2000 panel - Serum or Plasma [facility] Start: 03-17-2023 ECG 12-LEAD [facility] Start: 03-17-2023 Comprehensive metabolic panel Tiffanie Cruz all BRANCH SERVICE ASSOCIATE-APPLICATION SECURITY ARCHITECT Work Phone: Start: 03-16-2023 CT ABDOMEN PELVIS W IV CONTRAST [facility] Start: 03-16-2023 Ct abdomen & pelvis w/contrast material Tiffanie Mendez BRANCH SERVICE ASSOCIATE-APPLICATION SECURITY ARCHITECT Work Phone: Start: 03-16-2023 ED TO FLOOR BED REQUEST [facility] [employer] Start: 03-16-2023 PULSE OXIMETRY, CONTINUOUS [facility] Start: 03-16-2023 TELEMETRY MONITORING [facility] [employer] Start: 03-16-2023 MEASURE HEIGHT [facility] Start: 03-16-2023 ORTHOSTATIC BLOOD PRESSURE [facility] Start: 03-16-2023 WEIGH PATIENT [facility] [employer] Start: 03-16-2023 ADMIT TO INPATIENT [facility] Start: 03-16-2023 CBC W Auto Differential panel - Blood [facility] Start: 03-16-2023 Comprehensive metabolic 2000 panel - Serum or Plasma [facility] Start: 03-16-2023 SARS-COV-2 AND INFLUENZA A/B PCR [facility] Start: 03-16-2023 PULSE OXIMETRY, CONTINUOUS Tiffanie Mendez BRANCH SERVICE ASSOCIATE-[facility] Work Phone: Start: 03-16-2023 Comprehensive metabolic panel Melisa lipscomb MD Work Phone: Start: 03-16-2023 Influenza virus A and B and SARS-CoV-2 (COVID-19) identified in Respiratory specimen by HANK with probe detection Melisa Barker MD Work Phone: Start: 03-10-2023 DISCHARGE PATIENT [facility] Start: 03-10-2023 DISCHARGE INSTRUCTIONS [facility] Start: 03-10-2023 Glucose [Mass/volume] in Serum or Plasma [facility] Start: 03-10-2023 Glucose quantitative blood xcpt reagent strip Dolores Cox MD Work Phone: Start: 03-10-2023 Glucose [Mass/volume] in Serum or Plasma [facility] Start: 03-10-2023 Glucose quantitative blood xcpt reagent strip Dolores Cox MD Work Phone: Start: 03-10-2023 Basic metabolic 2000 panel - Serum or Plasma [facility] Start: 03-10-2023 CBC panel - Blood by Automated count [facility] Start: 03-10-2023 Glucose [Mass/volume] in Serum or Plasma [facility] Start: 03-10-2023 End: 03-10-2023 Basic metabolic panel calcium total Alicia Toro BRANCH SERVICE ASSOCIATE-APPLICATION SECURITY ARCHITECT Work Phone: Start: 03-10-2023 POCT GLUCOSE METER [facility] Start: 03-10-2023 Glucose [Mass/volume] in Serum or Plasma [facility] Start: 03-10-2023 Glucose quantitative blood xcpt reagent strip Dolores Cox MD Work Phone: Start: 03-09-2023 Glucose [Mass/volume] in Serum or Plasma [facility] Start: 03-09-2023 Glucose quantitative blood xcpt reagent strip Dolores Cox MD Work Phone: Start: 03-09-2023 Glucose [Mass/volume] in Serum or Plasma [facility] Start: 03-09-2023 Glucose quantitative blood xcpt reagent strip Dolores Cox MD Work Phone: Start: 03-09-2023 C. DIFFICILE, PCR [facility] Start: 03-09-2023 STOOL PATHOGEN PANEL, PCR [facility] Start: 03-09-2023 Glucose [Mass/volume] in Serum or Plasma [facility] Start: 03-09-2023 Iadna-dna/rna gi pthgn multiplex probe tq 6-11 Alicia Toro BRANCH SERVICE ASSOCIATE-APPLICATION SECURITY ARCHITECT Work Phone: Start: 03-09-2023 Inf agent det nucleic acid clostridium amp probe Alicia Toro BRANCH SERVICE ASSOCIATE-APPLICATION SECURITY ARCHITECT Work Phone: Start: 03-09-2023 IP CONSULT TO NUTRITION SERVICES [facility] Start: 03-09-2023 Glucose quantitative blood xcpt reagent strip Dolores Cox MD Work Phone: Start: 03-09-2023 Glucose [Mass/volume] in Serum or Plasma [facility] Start: 03-09-2023 ECG 12-LEAD [facility] Start: 03-09-2023 Basic metabolic 2000 panel - Serum or Plasma [facility] Start: 03-09-2023 CBC panel - Blood by Automated [facility] Start: 03-09-2023 Glucose quantitative blood xcpt reagent strip Dolores Cox MD Work Phone: Start: 03-09-2023 Glucose [Mass/volume] in Serum or Plasma [facility] Start: 03-09-2023 Basic metabolic panel calcium total Alicia Toro BRANCH SERVICE ASSOCIATE-APPLICATION SECURITY ARCHITECT Work Phone: Start: 03-09-2023 Glucose [Mass/volume] in Serum or Plasma [facility] Start: 03-09-2023 Glucose quantitative blood xcpt reagent strip Dolores Cox MD Work Phone: Start: 03-09-2023 Glucose quantitative blood xcpt reagent strip Dolores Cox MD Work Phone: Start: 03-09-2023 POCT GLUCOSE METER [facility]AÑA Start: 03-09-2023 Glucose [Mass/volume] in Serum or Plasma [facility] Start: 03-08-2023 Glucose quantitative blood xcpt reagent strip Dolores Cox MD Work Phone: Start: 03-08-2023 Glucose [Mass/volume] in Serum or Plasma [facility] Start: 03-08-2023 Glucose quantitative blood xcpt reagent strip Dolores Cox MD Work Phone: Start: 03-08-2023 Glucose [Mass/volume] in Serum or Plasma [facility] Start: 03-08-2023 Glucose quantitative blood xcpt reagent strip Dolores Cox MD Work Phone: Start: 03-08-2023 ECG 12-LEAD [facility] Start: 03-08-2023 Glucose [Mass/volume] in Serum or Plasma [facility] GÓMEZ Start: 03-08-2023 Glucose quantitative blood xcpt reagent strip Dolores Cox MD Work Phone: Start: 03-08-2023 Basic metabolic 2000 panel - Serum or Plasma [facility] MAGAÑA Start: 03-08-2023 CBC panel - Blood by Automated count [employer] [facility] Start: 03-08-2023 Glucose [Mass/volume] in Serum or Plasma [employer] [facility] Start: 03-08-2023 End: 03-08-2023 Basic metabolic panel calcium total Chrissy OGNZALEZC Work Phone: Start: 03-08-2023 INSERT URETHRAL CATHETER [facility] Start: 03-08-2023 POCT GLUCOSE METER [facility]ME[facility] Start: 03-08-2023 Glucose [Mass/volume] in Serum or [facility] Start: 03-08-2023 Glucose quantitative blood xcpt reagent strip Karma Sharpe MD Work Phone: Start: 03-07-2023 Glucose [Mass/volume] in Serum or Plasma [facility] Start: 03-07-2023 Glucose quantitative blood xcpt reagent strip Karma Sharpe MD Work Phone: Start: 03-07-2023 Glucose [Mass/volume] in Serum or Plasma [facility] Start: 03-07-2023 Glucose quantitative blood xcpt reagent strip Karma Sharpe MD Work Phone: Start: 03-07-2023 Glucose [Mass/volume] in Serum or Plasma [facility] Start: 03-07-2023 Glucose quantitative blood xcpt reagent strip Karma Sharpe MD Work Phone: Start: 03-07-2023 Glucose [Mass/volume] in Serum or Plasma [facility] Start: 03-07-2023 Glucose quantitative blood xcpt reagent strip Karma Sharpe MD Work Phone: Start: 03-07-2023 Basic metabolic 2000 panel - Serum or [facility] Start: 03-07-2023 CBC panel - Blood by Automated count [facility] Start: 03-07-2023 Glucose [Mass/volume] in Serum or Plasma [facility] Start: 03-07-2023 Basic metabolic panel calcium total Chrissy Harris PA-C Work Phone: Start: 03-07-2023 RESPIRATORY CARE EVALUATION ONLY ANA MARIA GÓMEZ Start: 03-07-2023 Glucose quantitative blood xcpt reagent strip Karma Sharpe MD Work Phone: Start: 03-07-2023 POCT GLUCOSE METER [facility] Start: 03-07-2023 RESPIRATORY CARE EVALUATION ONLY Karma siegel MD Work Phone: Start: 03-07-2023 Glucose [Mass/volume] in Serum or Plasma PHANI GÓMEZ Start: 03-06-2023 Glucose quantitative blood xcpt reagent strip Karma Sharpe MD Work Phone: Start: 03-06-2023 Glucose [Mass/volume] in Serum or Plasma [facility] Start: 03-06-2023 TELEMETRY MONITORING [facility] Start: 03-06-2023 Glucose quantitative blood xcpt reagent strip Karma Sharpe MD Work Phone: Start: 03-06-2023 TRANSFER PATIENT TO NEW UNIT [facility] Start: 03-06-2023 Glucose [Mass/volume] in Serum or Plasma [facility] Start: 03-06-2023 Glucose quantitative blood xcpt reagent strip Karma Sharpe MD Work Phone: Start: 03-06-2023 Glucose [Mass/volume] in Serum or Plasma [facility] Start: 03-06-2023 Glucose quantitative blood xcpt reagent strip Corie Head MD Work Phone: Start: 03-06-2023 Glucose [Mass/volume] in Serum or Plasma [facility] Start: 03-06-2023 XR CHEST 1 VIEW [facility] Start: 03-06-2023 Glucose quantitative blood xcpt reagent strip Corie Head MD Work Phone: Start: 03-06-2023 Radiologic exam chest single view Shona Foster BRANCH SERVICE ASSOCIATE-APPLICATION SECURITY ARCHITECT Work Phone: Start: 03-06-2023 Basic metabolic 2000 panel - Serum or Plasma [facility] Start: 03-06-2023 CBC panel - Blood by Automated count [facility] Start: 03-06-2023 Magnesium [Mass/volume] in Serum or Plasma [facility] Start: 03-06-2023 Phosphate [Mass/volume] in Serum or Plasma [facility] Start: 03-06-2023 Glucose [Mass/volume] in Serum or Plasma [facility] Start: 03-06-2023 Basic metabolic panel calcium total Chrissy Harris PA-C Work Phone: Start: 03-06-2023 Glucose quantitative blood xcpt reagent strip Corie Head MD Work Phone: Start: 03-06-2023 POCT GLUCOSE METER [facility] Start: 03-06-2023 PT EVAL AND TREAT [facility] Start: 03-06-2023 Glucose [Mass/volume] in Serum or Plasma [facility] Start: 03-05-2023 Glucose quantitative blood xcpt reagent strip Corie Head MD Work Phone: Start: 03-05-2023 Glucose [Mass/volume] in Serum or Plasma [facility] Start: 03-05-2023 Glucose quantitative blood xcpt reagent strip Corie Head MD Work Phone: Start: 03-05-2023 Glucose [Mass/volume] in Serum or Plasma [facility] Start: 03-05-2023 Basic metabolic 2000 panel - Serum or Plasma [facility] Start: 03-05-2023 CBC panel - Blood by Automated count [facility] Start: 03-05-2023 Magnesium [Mass/volume] in Serum or Plasma [facility] Start: 03-05-2023 Phosphate [Mass/volume] in Serum or Plasma [facility] Start: 03-05-2023 XR CHEST 1 VIEW [facility] Start: 03-05-2023 POCT GLUCOSE METER [facility] Start: 03-05-2023 MEASURE HEIGHT [facility] Start: 03-05-2023 WEIGH PATIENT [facility] Start: 03-05-2023 FULL CODE [facility] Start: 03-05-2023 Glucose quantitative blood xcpt reagent strip Corie Head MD Work Phone: Start: 03-05-2023 ADMIT TO INPATIENT [facility] Start: 03-05-2023 TRANSFER PATIENT TO NEW UNIT [facility] Start: 03-05-2023 Basic metabolic panel calcium total Desmond Tirado PA-C Work Phone: Start: 03-05-2023 Radiologic exam chest single view Desmond Tirado PA-C Work Phone: Start: 03-05-2023 PULSE OXIMETRY, CONTINUOUS [facility] Start: 03-05-2023 [facility] Start: 03-05-2023 PULSE OXIMETRY, CONTINUOUS Serena George DO Work Phone: Start: 03-05-2023 Level iii surg pathology gross&microscopic exam Sherry Magaña MD Work Phone: Start: 03-05-2023 End: 03-05-2023 Unlisted px abdomen musculoskeletal system Sherry Magaña MD Work Phone: Start: 03-05-2023 VERAB/VERIFY BRADH [facility]AÑA Start: 03-05-2023 XR CHEST 1 VIEW [facility] Start: 03-05-2023 VERAB/VERIFY SHAYY Magaña MD Work Phone: Start: 03-05-2023 Radiologic exam chest single view Edmund George DO Work Phone: Start: 03-02-2023 Basic metabolic 2000 panel - Serum or Plasma NO GENERIC PROVIDER Start: 03-02-2023 TYPE AND SCREEN NO GENERIC PROVIDER Start: 03-02-2023 STAPHYLOCOCCUS AUREUS/MRSA COLONIZATION, CULTURE [facility] Start: 02-13-2023 Computed tomography of abdomen and [...] GENERIC PROVIDER Start: 01-14-2023 ECG 12-LEAD [facility] Start: 01-14-2023 VASC US MESENTERIC ARTERY DUPLEX COMPLETE [facility] Start: 01-14-2023 Follow-up visit Follow-up [facility]AÑ[facility] Start: 01-13-2023 HCG, URINE, QUALITATIVE [facility] Start: 01-13-2023 URINALYSIS WITH REFLEX MICROSCOPIC [facility] Start: 01-13-2023 CBC W Auto Differential panel - Blood [facility] Start: 01-13-2023 Comprehensive metabolic 2000 panel - Serum or Plasma [facility] Start: 11-26-2022 Dup-scan artl tiara abdl/pel/scrot&/rpr orgn com Deacon R Gutnick MD Work Phone: Start: 11-11-2022 Antibody screen SERENA HAMM Comment on above: Order Comment: Specimen Type: BLOOD SPEC IMENOrdering Facility: [facility] Address: [address] [place], [place] [address] [address] Performed By: #### T SCR ####OSVALDO BLOOD BANKIA [id number] [place] [address] [place] Start: 11-11-2022 Ercp [...] 10-27-2022 Esophagogastroduodenoscopy transoral diagnostic Jaquan Morrow Start: 10-26-2022 Thyrotropin [Units/volume] in Serum or Plasma Sherry Magaña MD Work Phone: Start: 06-24-2022 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 Breanna Jarred BRANCH SERVICE ASSOCIATE.APPLICATION SECURITY ARCHITECT Work Phone: Start: 03-06-2022 Esophagoscp rig transoral hypopharynx crv esoph Breanna Stern BRANCH SERVICE ASSOCIATE.APPLICATION SECURITY ARCHITECT Work Phone: Start: 01-29-2022 Revision - value (qualifier value) Ashutosh Albright Comment on above: gastric sleeve revision Start: 01-28-2022 Antibody screen Pacc 2 Work Phone: Start: 01-28-2022 Ecg routine ecg w/least 12 lds trcg only w/o i&r [facility] Provider Start: 12-25-2021 Esophagoscp rig transoral hypopharynx crv rene Kat MD Work Phone: Start: 08-30-2021 NERVE [...] Start: 12-14-2020 Radex fingr minimum 2 views Kimberly Olmedo MD Work Phone: Start: 11-04-2020 Hysterectomy Sanchoit Jose Ramon Start: 07-02-2020 Us pelvic nonobstetric real-time image complete Juanito Hai Sisi PA-C Work Phone: Start: 07-02-2020 Blood typing serologic abo Juanito Taborryan aguilar PA-C Work Phone: Start: 07-02-2020 Complete blood count with white cell differential, automated Juanito Valles Sisi PA-C Work Phone: Start: 07-02-2020 Comprehensive metabolic panel Juanito Valles Ofelia richards PA-C Work Phone: Start: 07-02-2020 Ct abdomen & pelvis w/o contrast material Juanito Hai Sisi PA-C Work Phone: Start: 07-02-2020 Gonadotropin chorionic qualitative Vaughn Ceja MD Work Phone: Start: 07-02-2020 Urinalysis microscopic only Vaughn gay MD Work Phone: Start: 07-02-2020 Urinalysis, reagent strip without microscopy Vaughn Ceja MD Work Phone: Start: 01-30-2020 Computed tomography of abdomen and pelvis with contrast Agustinyuli Kitchendamion Work Phone: Start: 01-30-2020 Albumin serum plasma/whole blood Agustin Valles Sj Work Phone: Start: 01-30-2020 Assay of lipase Agustin Kitchendamion Work Phone: Start: 01-30-2020 Complete blood count with white cell differential, automated Agustin Kitchendamion Work Phone: Start: 01-30-2020 Creatinine blood Agustin Kitchendamion Work Phone: Start: 01-30-2020 Choriogonadotropin ( test) [Presence] in Urine Agustinyuli Kitchendamion Work Phone: Start: 01-30-2020 Urinalysis, reagent strip without microscopy Agustinyuli Kitchendamion Work Phone: Appendectomy Rajni Rouse Cholecystectomy Rajni Rouse Colonoscopy Rajni Rouse H/O: surgery S/P gastric surgery Montrell Acevedop RD Work Phone: H/O: surgery Status post surgery Jaquan stover History of cholecystectomy Histo ry of cholecystectomy Deacon Kat MD Work Phone: History of cholecystectomy Histo ry of cholecystectomy [facility] Work Phone: Plan of Treatment Date Care Activity Detail Author Start: 2039 Zoster Vaccines (1 of 2) Zoster Vaccines (1 of 2) [facility] Start: 09-21-2026 DTaP/Tdap/Td vaccine (2 - Td or Tdap) DTaP/Tdap/Td vaccine (2 - Td or Tdap) [facility] Start: 09-21-2026 DTaP/Tdap/Td Vaccines (2 - Td or Tdap) DTaP/Tdap/Td Vaccines (2 - Td or Tdap) [facility] Start: 09-21-2026 Tetanus vaccination [facility] Start: 09-21-2026 Urine microalbumin profile [facility] Start: 04-27-2024 BP Controlled (<130/80) BP Controlled (<130/80) [facility] Start: 03-10-2024 Diabetes mellitus screening Diabetes Screening [facility] Start: 12-05-2023 BP Controlled (<130/80) BP Controlled (<130/80) [facility] Start: 11-27-2023 BP Controlled (<130/80) BP Controlled (<130/80) [facility] Start: 10-27-2023 Thyroid stimulating hormone measurement TSH Level [facility] Start: 08-09-2023 End: 08-09-2023 Follow-up encounter 08/09/2023 9:00 AM EDT [facility] [address] [place] [address] Pablo Lebron, PSYD [address] [place] [address] follow up Neurology Comment on above: follow up Start: 07-28-2023 End: 07-28-2023 Patient encounter procedure 07/28/2023 10:00 AM EDT Office Visit Gastroenterology [address] [address] Kasie Avalos MD [address] [place], [place] [id number] 3 month f/u Gastroenterology Comment on above: 3 month f/u Start: 07-22-2023 End: 07-22-2023 Nursing evaluation of patient and report 07/22/2023 8:00 AM EDT Nurse Visit Gastroenterology [address] [address] Lab, Nurse Gi I [address] [place] [address] Gastroesophageal reflux disease, unspecified whether esophagitis present [K21.9] Gastroenterology Comment on above: Gastroesophageal reflux disease, unspeci fied whether esophagitis present [K21.9] Start: 07-20-2023 End: 07-20-2023 Nursing evaluation of patient and report 07/20/2023 1:30 PM EDT Nurse Visit Gastroenterology [address] [address] Lab, Nurse Gi I [address] [place] [address] Gastroesophageal reflux disease, unspecified whether esophagitis present [K21.9] Gastroenterology Comment on above: Gastroesophageal reflux disease, unspeci fied whether esophagitis present [K21.9] Start: 07-20-2023 End: 07-20-2023 Patient encounter procedure 07/20/2023 1:30 PM EDT Appointment Gastroenterology [address] [address] Meka Fischer MD [address] [place] [address] Gastroesophageal reflux disease, unspecified whether esophagitis present [K21.9] Gastroenterology Comment on above: Gastroesophageal reflux disease, unspeci fied whether esophagitis present [K21.9] Start: 07-15-2023 End: 07-15-2023 Patient encounter procedure 07/15/2023 3:15 PM EDT Office Visit Pain Management [address] [place] [address] Vic Ramos MD [address] [place] [address] est Pain Management Comment on above: est Start: 07-09-2023 End: 07-09-2023 Follow-up encounter 07/09/2023 9:00 AM EDT [facility] [address] [facility] [address] [place] [address] Pablo Lebron, [facility] [address] [place], [place] [id number] follow up Neurology Comment on above: follow up Start: 06-23-2023 End: 06-23-2023 Patient encounter procedure 06/23/2023 9:00 AM EDT Office Visit Plastic Surgery [address] [address] Juana Padilla, SLIM.APPLICATION SECURITY ARCHITECT [address] [place] [address] CONSULT FOR SKIN REMOVAL WEIGHT LOSS SURGERY PROVIDER LISSET KAT FV 01/2022 @ [facility] Plastic Surgery Comment on above: CONSULT FOR SKIN REMOVAL WEIGHT LOSS RED [place] PROVIDER LISSET KAT FV 01/2022 @ [facility] Start: 06-18-2023 End: 06-18-2023 Follow-up encounter 06/18/2023 4:00 PM EDT [facility] [address] [place] [address] Vic Ramos MD [address] [place] [address] [place] [address] Hospital Follow Up chronic pain Pain Management Comment on above: Hospital Follow Up chronic pain Start: 06-18-2023 End: 06-18-2023 Patient encounter procedure 06/18/2023 10:00 AM EDT Office Visit General Surgery [id number] [facility] [address] [place] [address] Breanna Stern, SLIM.APPLICATION SECURITY ARCHITECT [address] [place] [address] Post PEG-J placement General Surgery Comment on above: Post PEG-J placement Start: 06-15-2023 End: 06-15-2023 Patient encounter procedure 06/15/2023 11:00 AM EDT Office Visit General Surgery [id number] [place] [address] Breanna Stern, BRANCH SERVICE ASSOCIATE.APPLICATION SECURITY ARCHITECT [address] [place] [address] Post PEG-J placement General Surgery Comment on above: Post PEG-J placement Start: 06-13-2023 BP CONTROLLED (<130/80) BP CONTROLLED (<130/80) [facility] Start: 05-30-2023 Bacteria identified in Urine by Culture [facility] Start: 04-12-2023 End: 04-12-2023 Telemedicine consultation with patient 04/12/2023 9:00 AM EST Telemedicine [facility] [address] [facility] [address] [place] [address] [place] [address] [place] [address] [facility] Start: 11-23-2022 End: 11-24-2023 US MESENTERIC ARTERY CMPLT VAS LAB US MESENTERIC ARTERY CMPLT VAS LAB Vascular Lab [place] Chronic nausea RUQ pain Expected: 11/23/2022, Expires: 11/24/2023 [facility] Work Phone: Comment on above: Expected: 11/23/2022, Expires: Start: 11-18-2022 End: 01-18-2023 25-hydroxyvitamin D3 [Mass/volume] in Serum or Plasma VITAMIN D 25 HYDROXY Lab Routine S/P bariatric surgery Impaired intestinal absorption Expected: 11/18/2022 (Approximate), Expires: 01/18/2023 [facility] Work Phone: Comment on above: Expected: 11/18/2022 (Approximate), Expi res: 01/18/2023 Start: 11-18-2022 End: 01-18-2023 CBC panel - Blood by Automated count CBC Lab Routine S/P bariatric surgery Impaired intestinal absorption Expected: 11/18/2022 (Approximate), Expires: 01/18/2023 [facility] Work Phone: Comment on above: Expected: 11/18/2022 (Approximate), Expi res: 01/18/2023 Start: 11-18-2022 End: 01-18-2023 Cobalamin (Vitamin B12) [Mass/volume] in Serum or Plasma VITAMIN B12 BLOOD Lab Routine S/P bariatric surgery Impaired intestinal absorption Expected: 11/18/2022 (Approximate), Expires: 01/18/2023 [facility] Work Phone: Comment on above: Expected: 11/18/2022 (Approximate), Expi res: 01/18/2023 Start: 11-18-2022 End: 01-18-2023 Comprehensive metabolic 2000 panel - Serum or Plasma COMP METABOLIC PANEL Lab Routine S/P bariatric surgery Impaired intestinal absorption Expected: 11/18/2022 (Approximate), Expires: 01/18/2023 [facility] Work Phone: Comment on above: Expected: 11/18/2022 (Approximate), Expi res: 01/18/2023 Start: 11-18-2022 End: 01-18-2023 Ferritin [Mass/volume] in Serum or Plasma FERRITIN BLD Lab Routine S/P bariatric surgery Impaired intestinal absorption Expected: 11/18/2022 (Approximate), Expires: 01/18/2023 [facility] Work Phone: Comment on above: Expected: 11/18/2022 (Approximate), Expi res: 01/18/2023 Start: 11-18-2022 End: 01-18-2023 Folate [Mass/volume] in Serum or Plasma FOLATE SERUM Lab Routine S/P bariatric surgery Impaired intestinal absorption Expected: 11/18/2022 (Approximate), Expires: 01/18/2023 [facility] Work Phone: Comment on above: Expected: 11/18/2022 (Approximate), Expi res: 01/18/2023 Start: 11-18-2022 End: 01-18-2023 Iron and Iron binding capacity panel - Serum or Plasma IRON + TIBC Lab Routine S/P bariatric surgery Impaired intestinal absorption Expected: 11/18/2022 (Approximate), Expires: 01/18/2023 [facility] Work Phone: Comment on above: Expected: 11/18/2022 (Approximate), Expi res: 01/18/2023 Start: 11-18-2022 End: 01-18-2023 Parathyrin.intact [Mass/volume] in Serum or Plasma PTH INTACT BLD Lab Routine S/P bariatric surgery Impaired intestinal absorption Expected: 11/18/2022 (Approximate), Expires: 01/18/2023 [facility] Work Phone: Comment on above: Expected: 11/18/2022 (Approximate), Expi res: 01/18/2023 Start: 11-18-2022 End: 01-18-2023 Retinol [Mass/volume] in Serum or Plasma VITAMIN A/RETINOL Lab Routine S/P bariatric surgery Impaired intestinal absorption Expected: 11/18/2022 (Approximate), Expires: 01/18/2023 [facility] Work Phone: Comment on above: Expected: 11/18/2022 (Approximate), Expi res: 01/18/2023 Start: 11-18-2022 End: 01-18-2023 VITAMIN B1 (THIAMINE), WHOLE BLOOD VITAMIN B1 (THIAMINE), WHOLE BLOOD Lab Routine S/P bariatric surgery Impaired intestinal absorption Expected: 11/18/2022 (Approximate), Expires: 01/18/2023 [facility] Work Phone: Comment on above: Expected: 11/18/2022 (Approximate), Expi res: 01/18/2023 Start: 11-18-2022 End: 01-18-2023 Zinc [Mass/volume] in Serum or Plasma ZINC BLD Lab Routine S/P bariatric surgery Impaired intestinal absorption Expected: 11/18/2022 (Approximate), Expires: 01/18/2023 [facility] Work Phone: Comment on above: Expected: 11/18/2022 (Approximate), Expi res: 01/18/2023 Start: 11-04-2022 End: 01-04-2023 Amylase [Enzymatic activity/volume] in Serum or Plasma [facility] Work Phone: Comment on above: Expected: 11/04/2022, Expires: 3 Start: 11-04-2022 End: 01-04-2023 Lipase [Enzymatic activity/volume] in Serum or Plasma [facility] Work Phone: Comment on above: Expected: 11/04/2022, Expires: 3 Start: 10-16-2022 Covid-19 Vaccine (2022-) Covid-19 Vaccine () [facility] Start: 10-16-2022 Influenza vaccination [facility] Start: 09-15-2022 Influenza vaccination Flu vaccine (#1) [facility] Start: 07-28-2022 End: 09-27-2022 CBC W Auto Differential panel - Blood CBC + DIFF Lab Routine Rash and nonspecific skin eruption Expected: 07/28/2022, Expires: 09/27/2022 [facility] Work Phone: Comment on above: Expected: 07/28/2022, Expires: 3 Start: 07-28-2022 End: 09-27-2022 Comprehensive metabolic 2000 panel - Serum or Plasma COMP METABOLIC PANEL Lab Routine Rash and nonspecific skin eruption Facial edema Expected: 07/28/2022, Expires: 09/27/2022 [facility] Work Phone: Comment on above: Expected: 07/28/2022, Expires: 3 Start: 06-12-2022 End: 08-12-2022 MISAEL BY IFA WITH REFLEX [facility] Work Phone: Comment on above: Expected: 06/12/2022, Expires: 3 Start: 06-12-2022 End: 08-12-2022 Borrelia burgdorferi IgG and IgM panel - Serum [facility] Work Phone: Comment on above: Expected: 06/12/2022, Expires: 3 Start: 06-12-2022 End: 08-12-2022 Cyclic citrullinated peptide IgG Ab [Units/volume] in Serum or Plasma [facility] Work Phone: Comment on above: Expected: 06/12/2022, Expires: 3 Start: 06-12-2022 End: 08-12-2022 MONOCLONAL PROTEIN, SERUM (BLOOD) [facility] Work Phone: Comment on above: Expected: 06/12/2022, Expires: 3 Start: 06-12-2022 End: 08-12-2022 Niacin [Mass/volume] in Serum or Plasma [facility] Work Phone: Comment on above: Expected: 06/12/2022, Expires: 3 Start: 06-12-2022 End: 08-12-2022 PROTEIN ELECTROPHORESIS SERUM W/INTERP [facility] Work Phone: Comment on above: Expected: 06/12/2022, Expires: 3 Start: 06-12-2022 End: 08-12-2022 Pyridoxine [Mass/volume] in Serum or Plasma [facility] Work Phone: Comment on above: Expected: 06/12/2022, Expires: 3 Start: 06-12-2022 End: 08-12-2022 VITAMIN B1 (THIAMINE), WHOLE BLOOD [facility] Work Phone: Comment on above: Expected: 06/12/2022, Expires: 3 Start: 05-03-2022 End: 07-03-2022 25-hydroxyvitamin D3 [Mass/volume] in Serum or Plasma VITAMIN D 25 HYDROXY Lab Routine S/P gastric bypass Postoperative malabsorption Expected: 05/03/2022 (Approximate), Expires: 07/03/2022 [facility] Work Phone: Comment on above: Expected: 05/03/2022 (Approximate), Expi res: 07/03/2022 Start: 05-03-2022 End: 07-03-2022 CBC panel - Blood by Automated count CBC Lab Routine S/P gastric bypass Postoperative malabsorption Expected: 05/03/2022 (Approximate), Expires: 07/03/2022 [facility] Work Phone: Comment on above: Expected: 05/03/2022 (Approximate), Expi res: 07/03/2022 Start: 05-03-2022 End: 07-03-2022 Cobalamin (Vitamin B12) [Mass/volume] in Serum or Plasma VITAMIN B12 BLOOD Lab Routine S/P gastric bypass Postoperative malabsorption Expected: 05/03/2022 (Approximate), Expires: 07/03/2022 [facility] Work Phone: Comment on above: Expected: 05/03/2022 (Approximate), Expi res: 07/03/2022 Start: 05-03-2022 End: 07-03-2022 Comprehensive metabolic 2000 panel - Serum or Plasma COMP METABOLIC PANEL Lab Routine S/P gastric bypass Postoperative malabsorption Expected: 05/03/2022 (Approximate), Expires: 07/03/2022 [facility] Work Phone: Comment on above: Expected: 05/03/2022 (Approximate), Expi res: 07/03/2022 Start: 05-03-2022 End: 07-03-2022 Ferritin [Mass/volume] in Serum or Plasma FERRITIN BLD Lab Routine S/P gastric bypass Postoperative malabsorption Expected: 05/03/2022 (Approximate), Expires: 07/03/2022 [facility] Work Phone: Comment on above: Expected: 05/03/2022 (Approximate), Expi res: 07/03/2022 Start: 05-03-2022 End: 07-03-2022 Folate [Mass/volume] in Serum or Plasma FOLATE SERUM Lab Routine S/P gastric bypass Postoperative malabsorption Expected: 05/03/2022 (Approximate), Expires: 07/03/2022 [facility] Work Phone: Comment on above: Expected: 05/03/2022 (Approximate), Expi res: 07/03/2022 Start: 05-03-2022 End: 07-03-2022 Iron and Iron binding capacity panel - Serum or Plasma IRON + TIBC Lab Routine S/P gastric bypass Postoperative malabsorption Expected: 05/03/2022 (Approximate), Expires: 07/03/2022 [facility] Work Phone: Comment on above: Expected: 05/03/2022 (Approximate), Expi res: 07/03/2022 Start: 05-03-2022 End: 07-03-2022 Parathyrin.intact [Mass/volume] in Serum or Plasma PTH INTACT BLD Lab Routine S/P gastric bypass Postoperative malabsorption Expected: 05/03/2022 (Approximate), Expires: 07/03/2022 [facility] Work Phone: Comment on above: Expected: 05/03/2022 (Approximate), Expi res: 07/03/2022 Start: 05-03-2022 End: 07-03-2022 Thyrotropin [Units/volume] in Serum or Plasma TSH BLD Lab Routine S/P gastric bypass Postoperative malabsorption Expected: 05/03/2022 (Approximate), Expires: 07/03/2022 [facility] Work Phone: Comment on above: Expected: 05/03/2022 (Approximate), Expi res: 07/03/2022 Start: 05-03-2022 End: 07-03-2022 VITAMIN B1 (THIAMINE), WHOLE BLOOD VITAMIN B1 (THIAMINE), WHOLE BLOOD Lab Routine S/P gastric bypass Postoperative malabsorption Expected: 05/03/2022 (Approximate), Expires: 07/03/2022 [facility] Work Phone: Comment on above: Expected: 05/03/2022 (Approximate), Expi res: 07/03/2022 Start: 12-25-2021 End: 12-17-2022 PH HUERTA INSERT OFF MEDS PH HUERTA INSERT OFF MEDS Endoscopy Routine Regurgitation of food Gastroesophageal reflux disease, unspecified whether esophagitis present Expected: 12/25/2021, Expires: 12/17/2022 [facility] Work Phone: Comment on above: Expected: 12/25/2021, Expires: 3 Start: 10-16-2021 Influenza vaccination [facility] Start: 10-09-2021 End: 12-09-2021 25-hydroxyvitamin D3 [Mass/volume] in Serum or Plasma VITAMIN D 25 HYDROXY Lab Routine S/P laparoscopic sleeve gastrectomy Expected: 10/09/2021, Expires: 12/09/2021 [facility] Work Phone: Comment on above: Expected: 10/09/2021, Expires: 2 Start: 10-09-2021 End: 12-09-2021 Cobalamin (Vitamin B12) [Mass/volume] in Serum or Plasma VITAMIN B12 BLOOD Lab Routine S/P laparoscopic sleeve gastrectomy Expected: 10/09/2021, Expires: 12/09/2021 [facility] Work Phone: Comment on above: Expected: 10/09/2021, Expires: 2 Start: 10-09-2021 End: 12-09-2021 Ferritin [Mass/volume] in Serum or Plasma FERRITIN BLD Lab Routine S/P laparoscopic sleeve gastrectomy Expected: 10/09/2021, Expires: 12/09/2021 [facility] Work Phone: Comment on above: Expected: 10/09/2021, Expires: 2 Start: 10-09-2021 End: 12-09-2021 Folate [Mass/volume] in Serum or Plasma FOLATE SERUM Lab Routine S/P laparoscopic sleeve gastrectomy Expected: 10/09/2021, Expires: 12/09/2021 [facility] Work Phone: Comment on above: Expected: 10/09/2021, Expires: 2 Start: 10-09-2021 End: 12-09-2021 Hemoglobin A1c in Blood HGB A1C Lab Routine S/P laparoscopic sleeve gastrectomy Expected: 10/09/2021, Expires: 12/09/2021 [facility] Work Phone: Comment on above: Expected: 10/09/2021, Expires: 2 Start: 10-09-2021 End: 12-09-2021 Iron and Iron binding capacity panel - Serum or Plasma IRON + TIBC Lab Routine S/P laparoscopic sleeve gastrectomy Expected: 10/09/2021, Expires: 12/09/2021 [facility] Work Phone: Comment on above: Expected: 10/09/2021, Expires: 2 Start: 10-09-2021 End: 12-09-2021 Lipid 1996 panel - Serum or Plasma LIPID PANEL BASIC Lab Routine S/P laparoscopic sleeve gastrectomy Expected: 10/09/2021, Expires: 12/09/2021 [facility] Work Phone: Comment on above: Expected: 10/09/2021, Expires: 2 Start: 10-09-2021 End: 12-09-2021 Parathyrin.intact [Mass/volume] in Serum or Plasma PTH INTACT BLD Lab Routine S/P laparoscopic sleeve gastrectomy Expected: 10/09/2021, Expires: 12/09/2021 [facility] Work Phone: Comment on above: Expected: 10/09/2021, Expires: 2 Start: 10-09-2021 End: 12-09-2021 Thyrotropin [Units/volume] in Serum or Plasma TSH BLD Lab Routine S/P laparoscopic sleeve gastrectomy Expected: 10/09/2021, Expires: 12/09/2021 [facility] Work Phone: Comment on above: Expected: 10/09/2021, Expires: 2 Start: 10-09-2021 End: 12-09-2021 VITAMIN B1 (THIAMINE), WHOLE BLOOD VITAMIN B1 (THIAMINE), WHOLE BLOOD Lab Routine S/P laparoscopic sleeve gastrectomy Expected: 10/09/2021, Expires: 12/09/2021 [facility] Work Phone: Comment on above: Expected: 10/09/2021, Expires: Start: 06-23-2021 End: 06-23-2021 Patient encounter procedure 06/23/2021 Office Visit Sports Medicine Belen Stovall MD [address] [place] [id number] [facility] Start: 04-15-2021 COVID-19 VACCINE (3 - Booster for Woo series) COVID-19 VACCINE (3 - Booster for Woo series) [facility] Start: 10-16-2020 Influenza vaccination [facility] Start: 10-17-2019 Influenza vaccination INFLUENZA VACCINE (#1) [facility] Start: 2019 HPV TESTING HPV TESTING [facility] Start: 2019 Screening for malignant neoplasm of cervix [facility] Start: 2010 PAP TESTING PAP TESTING [facility] Start: 2010 Screening for malignant neoplasm of cervix [facility] Start: 2008 DTaP/Tdap/Td vaccine (1 - Tdap) DTaP/Tdap/Td vaccine (1 - Tdap) [facility] Work Phone: Start: 2008 Hepatitis B Vaccine (1 of 3 - 19+ 3-dose series) Hepatitis B Vaccine (1 of 3 - 19+ 3-dose series) [facility] Start: 2008 Third diphtheria, tetanus and acellular pertussis (DTaP) vaccination TDAP (ADULT) [facility] Start: 2008 Urine microalbumin profile DTAP,TDAP,TD (1 - Tdap) [facility] Start: 2007 ANNUAL PCP TEAM CHRONIC DISEASE VISIT ANNUAL PCP TEAM CHRONIC DISEASE VISIT [facility] Start: 2007 BP CONTROLLED (<130/80) BP CONTROLLED (<130/80) [facility] Start: 2007 HEPATITIS C SCREENING HEPATITIS C SCREENING [facility] Start: 2007 Hepatitis C screening [facility] Start: 2007 HIV SCREENING HIV SCREENING [facility] Start: 2007 HIV screening HIV Screening [facility] Start: 2007 SPIROMETRY SPIROMETRY [facility] Start: 2007 Tetanus vaccination TETANUS [facility] Start: 2004 HIV screening [facility] Start: 2002 HIV screening HIV SCREENING DISCUSSION [facility] Start: 2001 COVID-19 VACCINE (1) [facility]: 2001 Depression Screen Depression Screen [facility] Start: 1995 PNEUMOCOCCAL (1 - PCV) PNEUMOCOCCAL (1 - PCV) [facility] Start: 1995 Pneumococcal vaccination Pneumococcal Vaccine (1 - PCV) [facility] Start: 1990 MMR Vaccines (1 of 1 - Standard series) MMR Vaccines (1 of 1 - Standard series) [facility] Start: 1990 Varicella vaccination Varicella Vaccines (1 of 2 - 2-dose childhood series) [facility] Start: 1990 Varicella vaccine (1 of 2 - 2-dose childhood series) Varicella vaccine (1 of 2 - 2-dose childhood series) [facility] Start: 1989 HEPATITIS B (1 of 3 - 3-dose series) HEPATITIS B (1 of 3 - 3-dose series) [facility] Start: 1989 Hepatitis B Vaccine (1 of 3 - 3-dose series) Hepatitis B Vaccine (1 of 3 - 3-dose series) [facility] Start: 1989 Hepatitis B Vaccines (1 of 3 - 3-dose series) Hepatitis B Vaccines (1 of 3 - 3-dose series) [facility] Start: 1989 Hepatitis C antibody, confirmatory test HEPATITIS C VIRUS SCREENING [facility] Start: 1989 Hepatitis C screening [facility] Start: 1989 HIV screening HIV Screening [facility] Start: 1989 Lipid panel Lipid Panel [facility] Start: 1989 Thyroid stimulating hormone measurement TSH [facility] Start: 1989 TSH Qn TSH [facility] Start: 1989 Yearly Adult Physical Yearly Adult Physical [facility] End: 07-23-2023 ADULT [employer] ADULT [place] [employer] Endoscopy Routine Constipation, unspecified constipation type 1 Occurrences starting 07/22/2022 until 07/23/2023 [facility] Work Phone: Comment on above: 1 Occurrences starting 07/22/2022 until 07/23/2023 End: 03-23-2023 Basic metabolic 2000 panel - Serum or Plasma Basic Metabolic Panel Lab Routine Morning draw (Lab) for 3 Occurrences starting 03/21/2023 until 03/23/2023 [facility] Work Phone: Comment on above: Morning draw (Lab) for 3 Occurrences sta rting 03/21/2023 until 03/23/2023 End: 03-12-2023 CBC panel - Blood by Automated count CBC Lab Routine Morning draw (Lab) for 3 Occurrences starting 03/10/2023 until 03/12/2023, 1 completed [facility] Work Phone: Comment on above: Morning draw (Lab) for 3 Occurrences sta rting 03/10/2023 until 03/12/2023, 1 completed End: 03-23-2023 CBC panel - Blood by Automated count CBC Lab Routine Morning draw (Lab) for 3 Occurrences starting 03/21/2023 until 03/23/2023 [facility] Work Phone: Comment on above: Morning draw (Lab) for 3 Occurrences sta rting 03/21/2023 until 03/23/2023 End: 03-16-2023 CBC W Auto Differential panel - Blood CBC and Auto Differential Lab STAT Once (Lab) for 1 Occurrences starting 03/16/2023 until 03/16/2023 [facility] Work Phone: Comment on above: Once (Lab) for 1 Occurrences starting until 03/16/2023 End: 03-16-2023 Comprehensive metabolic 2000 panel - Serum or Plasma Comprehensive metabolic panel Lab STAT STAT (Lab) for 1 Occurrences starting 03/16/2023 until 03/16/2023 [facility] Work Phone: Comment on above: STAT (Lab) for 1 Occurrences starting until 03/16/2023 End: 01-03-2024 Ct angio abd&plvis cntrst mtrl w/wo cntrst img CTA ABD/PEL W IVCON Radiology Routine Generalized abdominal pain 1 Occurrences starting 12/04/2022 until 01/03/2024 [facility] Work Phone: Comment on above: 1 Occurrences starting 12/04/2022 until 01/03/2024 End: 01-28-2023 ECG COMPLETE ECG COMPLETE ECG Routine Pre-op evaluation 1 Occurrences starting 01/28/2022 until 01/28/2023 [facility] Work Phone: Comment on above: 1 Occurrences starting 01/28/2022 until 01/28/2023 End: 11-17-2022 EGD - THERAPEUTIC, EUS, OR TUBE INTERVENTIONS EGD - THERAPEUTIC, EUS, OR TUBE INTERVENTIONS Endoscopy Routine Gastroesophageal reflux disease without esophagitis 1 Occurrences starting 11/17/2021 until 11/17/2022 [facility] Work Phone: Comment on above: 1 Occurrences starting 11/17/2021 until 11/17/2022 End: 03-05-2023 EGD - THERAPEUTIC, EUS, OR TUBE INTERVENTIONS EGD - THERAPEUTIC, EUS, OR TUBE INTERVENTIONS Endoscopy Routine Esophageal dysphagia S/P gastric bypass 1 Occurrences starting 03/05/2022 until 03/05/2023 [facility] Work Phone: Comment on above: 1 Occurrences starting 03/05/2022 until 03/05/2023 End: 04-27-2024 EGD - THERAPEUTIC, EUS, OR TUBE INTERVENTIONS EGD - THERAPEUTIC, EUS, OR TUBE INTERVENTIONS Endoscopy Routine Gastroesophageal reflux disease, unspecified whether esophagitis present 1 Occurrences starting 04/28/2023 until 04/27/2024 [facility] Work Phone: Comment on above: 1 Occurrences starting 04/28/2023 until 04/27/2024 End: 10-09-2022 EGD BARIATRIC EGD BARIATRIC Endoscopy Routine Gastroesophageal reflux disease, unspecified whether esophagitis present Bariatric surgery status Class 1 obesity with serious comorbidity and body mass index (BMI) of 31.0 to 31.9 in adult, unspecified obesity type S/P laparoscopic sleeve gastrectomy 1 Occurrences starting 10/09/2021 until 10/09/2022 [facility] Work Phone: Comment on above: 1 Occurrences starting 10/09/2021 until 10/09/2022 End: 10-21-2023 EGD DIAGNOSTIC EGD DIAGNOSTIC Endoscopy Routine Epigastric pain 1 Occurrences starting 10/20/2022 until 10/21/2023 [facility] Work Phone: Comment on above: 1 Occurrences starting 10/20/2022 until 10/21/2023 Electrocardiogram, 12-lead PRN ACS symptoms Electrocardiogram, 12-lead PRN ACS symptoms ECG Routine As needed until discontinued starting 03/05/2023 [facility] Work Phone: Comment on above: As needed until discontinued starting Electrocardiogram, 12-lead PRN ACS symptoms Electrocardiogram, 12-lead PRN ACS symptoms ECG Routine 03/08/2023 10:45 AM EST [facility] Work Phone: Electrocardiogram, 12-lead PRN ACS symptoms Electrocardiogram, 12-lead PRN ACS symptoms ECG Routine As needed until discontinued starting 03/16/2023 [facility] Work Phone: Comment on above: As needed until discontinued starting Glucose [Mass/volume ] in Serum or Plasma POCT Glucose Point of Care Testing - Docked Device Routine Every 4 hours (Lab) until discontinued starting 03/05/2023, 30 completed [facility] Work Phone: Comment on above: Every 4 hours (Lab) until discontinued s tarting 03/05/2023, 30 completed End: 12-04-2023 Hepatobil syst imag inc gb w/pharma intervenj NM HEPATOBILIARY W EF AND/OR RX Radiology Routine Nausea RUQ pain History of cholecystectomy 1 Occurrences starting 11/04/2022 until 12/04/2023 [facility] Work Phone: Comment on above: 1 Occurrences starting 11/04/2022 until 12/04/2023 End: 03-18-2023 Incentive spirometry Instruct Incentive spirometry Instruct Respiratory Care Routine Once for 1 Occurrences starting 03/18/2023 until 03/18/2023 [facility] Work Phone: Comment on above: Once for 1 Occurrences starting 03/18/19 24 until 03/18/2023 Injx anes celiac ple xus w/wo radiologic monitrng DIAG/THER NRV BLK CELIAC PLEXUS Procedures Routine Chronic pain syndrome Ordered: 01/11/2023 [facility] Work Phone: Comment on above: Ordered: 01/11/2023 Patient Education [facility] Work Phone: Patient referral [facility] Work Phone: End: 04-27-2024 PH HUERTA INSERT ON MEDS PH HUERTA INSERT ON MEDS Endoscopy Routine Gastroesophageal reflux disease, unspecified whether esophagitis present 1 Occurrences starting 04/28/2023 until 04/27/2024 [facility] Work Phone: Comment on above: 1 Occurrences starting 04/28/2023 until 04/27/2024 End: 11-18-2022 PH IMPEDANCE INSERT OFF MEDS PH IMPEDANCE INSERT OFF MEDS Endoscopy Routine Gastroesophageal reflux disease without esophagitis S/P laparoscopic sleeve gastrectomy 1 Occurrences starting 11/19/2021 until 11/18/2022 [facility] Work Phone: Comment on above: 1 Occurrences starting 11/19/2021 until 11/18/2022 End: 03-05-2023 Pulse oximetry, continuous Pulse oximetry, continuous Respiratory Care Routine Continuous until discontinued starting 03/05/2023 [facility] Work Phone: Comment on above: Continuous until discontinued starting 0 03/05/2023 End: 10-18-2023 Radiologic exam upr gi trc double contrast study XR UPPER GI ROUTINE DOUBLE CONTRAST/AIR Radiology Routine S/P bariatric surgery Gastroesophageal reflux disease, unspecified whether esophagitis present 1 Occurrences starting 09/18/2022 until 10/18/2023 [facility] Work Phone: Comment on above: 1 Occurrences starting 09/18/2022 until 10/18/2023 SURGICAL PATHOLOGY [facility] Work Phone: Comment on above: Release Upon Ordering for 1 Occurrences starting 12/25/2021, 1 completed Surgical pathology study [facility] Work Phone: Comment on above: Release Upon Ordering for 1 Occurrences starting 03/19/2023, 1 completed End: 03-10-2023 Urethral Catheter Removal Urethral Catheter Removal Procedures Routine Once for 1 Occurrences starting 03/10/2023 until 03/10/2023 [facility] Work Phone: Comment on above: Once for 1 Occurrences starting 03/10/19 until 03/10/2023 End: 12-04-2023 US ABD RIGHT UPPER QUADRANT US ABD RIGHT UPPER QUADRANT Radiology Routine Nausea RUQ pain History of cholecystectomy 1 Occurrences starting 11/04/2022 until 12/04/2023 [facility] Work Phone: Comment on above: 1 Occurrences starting 11/04/2022 until 12/04/2023 US ABD RIGHT UPPER QUADRANT US ABD RIGHT UPPER QUADRANT Radiology Routine Nausea RUQ pain History of cholecystectomy 11/04/2022 11:15 AM EDT [facility] Work Phone: End: 12-04-2023 XR KNEE GENERAL 4V AP BOTH/PA BOTH/LAT/MERC RIGHT XR KNEE GENERAL 4V AP BOTH/PA BOTH/LAT/MERC RIGHT Radiology Routine Right knee pain, unspecified chronicity 1 Occurrences starting 11/04/2022 until 12/04/2023 [facility] Work Phone: Comment on above: 1 Occurrences starting 11/04/2022 until 12/04/2023 [facility] [place] [facility] Immunizations Immunization Date Immunization Notes Care Provider [facility] 11-12-2022 influenza, injectabl e, quadrivalent, preservative free Deacon Kat MD Work Phone: [facility] 11-16-2021 influenza virus vaccine, unspecified formulation [facility] 02-18-2021 SARS-CoV-2 (COVID-19 ) mRNA BNT-162b2 vax [facility] Comment on above: Result Comment: 2022: TPVALL 01-01-2021 influenza virus vaccine, unspecified formulation [facility] 01-01-2021 influenza, seasonal, injectable Kuldip Yousif MD Work Phone: [facility] 12-25-2020 influenza virus [facility], [facility] 12-25-2020 influenza, injectabl e, quadrivalent, preservative free Kuldip Yousif MD Work Phone: [facility] 06-23-2020 COVID-19 Vaccine Woo - Documentation Purposes Only Shanna June Other [facility] Comment on above: Result Comment: 2022: TPVAL 11-28-2018 influenza, seasonal, injectable Shanna June Other [facility] 11-28-2018 influenza virus vaccine, unspecified formulation [facility] 09-21-2016 tetanus toxoid, redu lauren diphtheria toxoid, and acellular pertussis vaccine, adsorbed Kuldip Yousif MD Work Phone: [facility] Payers Date Payer Category Payer Unknown [id number] 2023 Self-pay [id number] 2020 Private Health Insurance [id number] 2020 Private Health Insurance [facility] [employer] [id number] 2020-Present [phone] [address] [address] [place] [address] O [id number]. [id number] 2017 Unknown 2017 Unknown [employer] M MO [id number] 2017-Present [id number] 1.2.840.804022.1.13.172.2. 7.3.351132.315 1989 Unknown [id number] 2.16.840.1.193869.3.579.2. 594 1989 Unknown [id number] 2.16.840.1.703645.3.579.2. 594 1989 Unknown [id number] 2.16.840.1.016910.3.579.2. 593 1989 Unknown [id number] 2.16.840.1.096664.3.579.2. 593 1989 Unknown [id number] 2.16.840.1.614572.3.579.2. 593 1989 Unknown [id number] 2.16.840.1.381767.3.579.2. 593 1989 Unknown [id number] 2.16.840.1.660264.3.579.2. 593 1989 Unknown [id number] 2.16.840.1.923535.3.579.2. 593 1989 Unknown [id number] 2.16.840.1.061374.3.579.2. 593 1989 Unknown [id number] 2.16.840.1.671909.3.579.2. 593 1989 Unknown [id number] 2.16.840.1.044295.3.579.2. 593 1989 Unknown [id number] 2.16.840.1.589030.3.579.2. 593 1989 Unknown [id number] 2.16.840.1.488512.3.579.2. 593 1989 Unknown [id number] 2.16.840.1.980318.3.579.2. 593 1989 Unknown [id number] 2.16.840.1.101458.3.579.2. 173 1989 Unknown [id number] 2.16.840.1.282946.3.579.2. 173 1989 Unknown [id number] 2.16.840.1.379652.3.579.2. 173 1989 Unknown [id number] 2.16.840.1.516750.3.579.2. 983 1989 Unknown [id number] 2.16.840.1.983701.3.579.2. 196 1989 Unknown [id number] 2.16.840.1.537748.3.579.2. 182 1989 Unknown [id number] 2.16.840.1.895995.3.579.2. 182 1989 Unknown [id number] 2.16.840.1.962251.3.579.2. 1242 1989 Unknown [id number] 2.16.840.1.831610.3.579.2. 1243 1989 Unknown [id number] 2.16.840.1.530979.3.579.2. 1243 1989 Unknown [id number] 2.16840.1.820392.3.579.2. 1243 1989 Unknown [id number] 2.16.840.1.663929.3.579.2. 1243 1989 Unknown [id number] 2.16840.1.139276.3.579.2. 1243 1989 Unknown [id number] 2.16840.1.215939.3.579.2. 1243 1989 Unknown [id number] 2.0.1.124238.3.579.2. 1243 1989 Unknown [id number] 2.840.1.599001.3.579.2. 1243 1989 Unknown [id number] 2.840.1.074666.3.579.2. 1243 1989 Unknown [id number] 2.840.1.990917.3.579.2. 1243 1989 Unknown [id number] 2.840.1.497867.3.579.2. 1244 1989 Unknown [id number] 2.16840.1.220312.3.579.2. 1989 Unknown [id number] 2.16.840.1.232624.3.579.2. 1989 Unknown [id number] 2.16.840.1.402833.3.579.2. 1989 Unknown [id number] 2.840.1.963745.3.579.2 1989 Unknown [id number] 2.16.840.1.130423.3.579.2 1989 Unknown [id number] 2.16.840.1.747213.3.579.2 1989 Unknown [id number] 2.16.840.1.589902.3.579.2 1989 Unknown [id number] 2.16.840.1.759631.3.579.2 1989 Unknown [id number] 2.16.840.1.056320.3.579.2 1989 Unknown [id number] 2.16.840.1.024513.3.579. 1989 Unknown [id number] 2.16.840.1.519244.3.579. 1989 Unknown [id number] 2.16.840.1.535795.3.579.2 1989 Unknown [id number] 2.16.840.1.639696.3.579.2 1989 Unknown [id number] 2.16.840.1.361565.3.579.2 1989 Unknown [id number] 2.16.840.1.983093.3.579.2 1989 Unknown [id number] 2.16.840.1.005269.3.579.2 1989 Unknown [id number] 2.16.840.1.361096.3.579.2 1989 Unknown [id number] 2.16.840.1.489130.3.579.2 1989 Unknown [id number] 2.16.840.1.418291.3.579.2 1989 Unknown [id number] 2.16.840.1.790606.3.579.2 1989 Unknown [id number] 2.16.840.1.057176.3.579.2 1989 Unknown [id number] 2.16.840.1.621909.3.579.2 1989 Unknown [id number] 2.16.840.1.047428.3.579.2 1989 Unknown [id number] 2.16.840.1.690764.3.579.2 1989 Unknown [id number] 2.16.840.1.641428.3.579.2 1989 Unknown [id number] 2.16.840.1.722622.3.579.2 1989 Unknown [id number] 2.16.840.1.726609.3.579.2 1989 Unknown [id number] 2.16.840.1.417687.3.579.2 1989 Unknown [id number] 2.16.840.1.646537.3.579.2 1989 Unknown [id number] 2.16.840.1.955335.3.579.2 1989 Unknown [id number] 2.16.840.1.475860.3.579.2 1989 Unknown [id number] 2.16.840.1.723798.3.579.2 1989 Unknown [id number] 2.16.840.1.484949.3.579.2 1989 Unknown [id number] 2.16.840.1.995886.3.579.2 1989 Unknown [id number] 2.16.840.1.206207.3.579.2 1989 Unknown [id number] 2.16.840.1.406304.3.579.2 1959 Unknown [id number] 1.2.840.259046.1.13.239.2. 7.3.059676.315 1959 Unknown [id number] Unknown [id number] 2.16.840.1.609747.3.579.2. 531 Unknown [id number] 2.16.840.1.255302.3.579.2. 531 Unknown [id number] 2.16.840.1.357270.3.579.2. 531 Social History Date Type Detail Facility Start: 01-30-2020 End: 01-28-2022 Tobacco smoking status KYIS Never smoker [facility] Start: 01-30-2020 End: 01-28-2022 Tobacco use and exposure Never used [facility] Start: 01-30-2020 End: 11-02-2022 Alcohol intake Current non-drinker of alcohol (finding) [facility] Start: 1990 Sex Assigned At Not on file [facility] Start: 06-08-2021 End: 04-20-2023 Exposure to SARS-CoV-2 (event) Not sure [facility] Start: 05-06-2021 End: 06-18-2023 Alcohol intake Ex-drinker (finding) [facility] Start: 10-16-2019 End: 06-20-2022 History SDOH Financial 5 [facility] Start: 10-16-2019 End: 06-20-2022 History SDOH Food Worry 1 [facility] Start: 10-16-2019 End: 06-20-2022 History SDOH Transport Med 2 [facility] Start: 10-15-2019 Education 18 [facility] Start: 06-17-2022 End: 09-18-2022 Sex Assigned At [facility] Start: 10-04-2021 End: 01-01-2022 Exposure to SARS-CoV-2 (event) Unable to assess [facility] Tobacco smoking status Never [facility] Start: 06-17-2022 End: 09-18-2022 History of Social function [facility] Work Phone: (I/We) worried law er (my/our) food would run out before (I/we) got money to buy more. Never true [facility] Work Phone: In the past 12 month s, was there a time when you were not able to pay the mortgage or rent on time? No [facility] Work Phone: Do you belong to any clubs or organizations such as lutheran groups, unions, fraternal or athletic groups, or school groups? Yes [facility] Are you now , , , , never or living with a partner? [facility] How often to you hav e a drink containing alcohol? Never [facility] How hard is it for y ou to pay for the very basics like food, housing, medical care, and heating Somewhat hard [facility] Do you feel stress - tense, restless, nervous, or anxious, or unable to sleep at night because your mind is troubled all the time - these days [OSQ] To some extent [facility] Start: 11-12-2017 Gender identity Identifies as female gender (finding) [facility] How hard is it for y ou to pay for the very basics like food, housing, medical care, and heating Hard [facility] (I/We) worried wheth er (my/our) food would run out before (I/we) got money to buy more. Sometimes true [facility] Start: 1990 Sex Assigned At Female F [facility] How hard is it for y ou to pay for the very basics like food, housing, medical care, and heating Not very hard [facility] Work Phone: Start: 03-02-2023 Sexual orientation Heterosexual (graham rosado) [facility] Work Phone: Tobacco [facility] Comment on above: denies Tobacco smoking status No Smokin g Status Entered [facility] NEGATED: Highlighted row [facility] Medical Equipment Procedure Code Equipment Code Equipment Origin al Text Equipment Identifier Dates Fibertak Hip Yoanna f [place] 1.8mm [id number] Start: 07-10-2021 Fibertak Hip Yoanna f [place] 1.8mm [id number] Start: 07-10-2021 Fibertak Hip Yoanna f [place] 1.8mm [id number] Start: 07-10-2021 Fibertak Hip Yoanna f [place] 1.8mm [id number] Start: 07-10-2021 Membrane, Sepraf ilm, 5 X 6 In - [id number] Start: 03-05-2023 One touch Verio strips for One Touch Verio meter; test 4 times a day [id number] Start: 01-16-2019 End: 03-10-2023 Functional Status Date Assessment Result Facility 05-17-2023 Functional Status N/A [facility] 05-12-2023 Functional Status No [facility] 05-12-2023 Functional Status [facility] 05-11-2023 Functional Status N/A [facility] 05-09-2023 Functional Status N/A [facility] 05-06-2023 Functional Status N/A [facility] 04-02-2023 Functional Status N/A [facility] 03-16-2023 Functional Status N/A [facility] 03-15-2023 Functional Status N/A [facility] 12-31-2022 Functional Status N/A [facility] 10-20-2022 Functional Status N/A [facility] 10-19-2022 Functional Status N/A [facility] 07-29-2022 Functional Status N/A [facility] 06-10-2022 Functional Status N/A [facility] Clinical Notes 07-09-2019 to 06-18-2023 Breanna Stern APRN.APPLICATION SECURITY ARCHITECT - 06/18/2023 10:00 AM Yaneth Wilcox MA - 06/18/2023 9:35 AM Yaneth Wilcox MA - 06/18/2023 9:35 AM Pablo Burris PSYD - 06/09/2023 8:59 AM EDT Note Date & Type Note Facility 06-18-2023 Note [id number] [facility] 06-18-2023 Note [facility] 06-18-2023 History of Presen t illness Narrative Assessment Postoperative Visit HPI: Post op diagnostic lap, re-admitted 9 days post discharge for abdominal pain with tube feeds. Today c/o severe, Sharp pain coming in waves - about every min or less), started yesterday, stool and urinary incontinence last night (has never happened to her before), BS 50-60, intially did ok with Nutren TF's, then pain began again few days ago + signficiantly worsened over night. Described strong stabbing pain. + Nausea. Taking only fluids PO right now, no foods From discharge summaries: Admit 06/06/23-06/09/23 HOSPITAL COURSE: 33 year old female with past medical history of PCOS, GERD, Chronic Abdominal pain and past surgical history of laparoscopic cholecystectomy in 2008, sleeve gastrectomy in 2020, conversion to gastric bypass in 2021, lap assisted ERCP with sphincterotomy in 2022, and MALS surgery in February 2023 who presents to the ED with Abdominal Pain with Tube Feed. Pain mx, in IV fluids due to vomiting and poor oral intake. Patient was in NPO and IV fluids initially, she was then resumed in her tube feeds, which she is tolerating at 45 cc/h, she was resumed in liquid diet 24 hours prior to DC with good tolerance and no vomiting. She is tolerating the use of reglan prior to each meal. As she has chronic abdominal pain she was seen by pain management and recommendations are in place, she will follow outpatient with them as she has chronic pain. Anxiety was not controlled and buspar was increased from bid to tid. She will follow up with PCP in case we need to increase mirtazapine or change the SSRI. Dc in stable condition with tube feeds and oral intake. Admit 05/25/23-05/28/23 HOSPITAL COURSE: Ms. Garcia, a 33-year-old female with PMH anemia, PCOS, GERD, and chronic abdominal pain. PSH laparoscopic cholecystectomy in 2008, sleeve gastrectomy in 2020, conversion to gastric bypass in 2021, lap assisted ERCP with sphincterotomy in 2022, and MALS surgery in February 2023. She had a Corpak placed on 05/19 and TF started which she tolerated. She was admitted on 05/24 for endoscopic PEG-J feeing tube placement. Procedure went without complications. She was started on tube feeds that were advanced to goal and she tolerated it. Patient was discharged in a stable condition. Date of Surgery: 11/11/22 Surgery: 1. Laparoscopic gastric exploration (to facilitate ERCP with sphincterotomy). 2. Diagnostic laparoscopy with closure of jejunojejunostomy defect Post Op Diagnosis: 1. Sphincter of Oddi dysfunction. 2. History of bypass gastrojejunostomy. Physical examination: BP 142/82 Pulse 78 Temp (Src) 98 (Temporal) Ht 5' 5.984 (1.68m) Wt 169 lb (76.7kg) SpO2 100% LMP 08/19/2020 BMI 27.29 kg/(m^2). A&O, in distress, discomfort, diaphoretic Increased pain with standing, bending Abdomen: soft, no distention. + area of fluctuant swelling above feeding tube LE's: No edema Impression and plan: Abbey Garcia is a 33 year old yo pleasant woman, s/p Laparoscopic gastric exploration (to facilitate ERCP with sphincterotomy), Diagnostic laparoscopy with closure of jejunojejunostomy defect. PEG-J feeding tube placed. Readmit 06/05/-06/08 for abdominal pain r/t tube feeds. Presented today for follow up. -Pt is in obvious distress, discomfort having severe/sharp abdominal pain, hypoglycemia and nausea Pt taken to ER for evaluation D/W Dr Kat Follow up with Dr Jacquelyn Stern APRN.APPLICATION SECURITY ARCHITECT documented in this encounter [facility] 06-18-2023 Nurse Note What is the reason for your visit today? Post op PEG-J placement Who is your referring physician? Are you having poor oral intake? YES Have you had unintentional weight loss of 15 lbs/7 Kg in the last 3-6 months? NO Bowels: diarrhea Wound: Temperature: No Drains: No [facility] 06-18-2023 Nurse Note What is the reason for your visit today? Post op PEG-J placement Who is your referring physician? Are you having poor oral intake? YES Have you had unintentional weight loss of 15 lbs/7 Kg in the last 3-6 months? NO Bowels: diarrhea Wound: Temperature: No Drains: No documented in this encounter [facility] 06-17-2023 Telephone encounter Note Called patient aware 5/3 appt cancelled provider unavailable Patient aware ketamine spray is controlled medication office visit every 3 months (12 weeks) required. Patient states she has availability next week please call anytime for in person appt she is available after 12pm. Please assist patient with scheduling provider for ketamine refill appt. [facility] 06-17-2023 Miscellaneous Notes Called patient aware 5/3 appt cancelled provider unavailable Patient aware ketamine spray is controlled medication office visit every 3 months (12 weeks) required. Patient states she has availability next week please call anytime for in person appt she is available after 12pm. Please assist patient with scheduling provider for ketamine refill appt. documented in this encounter [facility] 06-17-2023 Telephone encounter Note Phoned Malka back with Dr. Kat's response. He will not be managing patient's TPN. Malka advised that she arranged for hospitalist to manage. Serena Neff HEALTH AND WELLNESS COORDINATOR History Department Chair for Dr. Kat [facility] 06-17-2023 Miscellaneous Notes Phoned Malka back with Dr. Kat's response. He will not be managing patient's TPN. Malka advised that she arranged for hospitalist to manage. Serena Neff HEALTH AND WELLNESS COORDINATOR History Department Chair for Dr. Kat Malka from [facility] calling asking if Dr Kat will follow patient for TPN. Physician there is discharging patient on TPN. CB# [phone] ext [phone] documented in this encounter [facility] 06-15-2023 Telephone encounter Note Malka from [facility] calling asking if Dr Kat will follow patient for TPN. Physician there is discharging patient on TPN. CB# [phone] ext [phone] [facility] 06-15-2023 Note [id number] [facility] 06-14-2023 Telephone encounter Note Hospital Medicine Transfer Received page for transfer request from [facility] to [place]: Abbey Garcia is 33 year old female who presented with nausea, vomiting and worsening LUQ pain. Pt has complicated gastric surgery history and is currently doing TF via PEG for nutrition. Per [facility] pt is HDS and electrolytes are stable. Pt is requesting transfer to because that is where her care team is and states she only went to [facility] because they have short wait times. ED team gave IVF and IV pain meds which improved LUQ pain somewhat. Pts notified Dr Kat that she was going to ED. Reason for transfer: continuity of care Accepted to hospital medicine service at [facility] Stephanie Sumner DO 4:39 PM [facility] Work Phone: 06-14-2023 Miscellaneous Notes Hospital Medicine Transfer Received page for transfer request from [facility] to [place]: Abbey Garcia is 33 year old female who presented with nausea, vomiting and worsening LUQ pain. Pt has complicated gastric surgery history and is currently doing TF via PEG for nutrition. Per [facility] pt is HDS and electrolytes are stable. Pt is requesting transfer to because that is where her care team is and states she only went to [facility] because they have short wait times. ED team gave IVF and IV pain meds which improved LUQ pain somewhat. Pts notified Dr Kat that she was going to ED. Reason for transfer: continuity of care Accepted to hospital medicine service at [facility] Stephanie Sumner DO 4:39 PM documented in this encounter [facility] 06-11-2023 Note [id number] [facility] 06-09-2023 Note HNO ID: [id number] Author: PABLO LEBRON PSYD Service: ? Author Type: Psychologist Type: Progress Notes Filed: 06/09/2023 09:52 Note Text: Assessment was conducted virtually. Patient is a resident of [place], and completed the assessment virtually in [place]. Psychologist is licensed and stationed in [place]. Informed consent was discussed and verbal assent was granted by the patient. GENERAL PSYCHOLOGY Session #: 4 (session count starts after PSYL NEW EVAL visit) SUBJECTIVE: Major surgery February 2023 (difficult recovery; in and out of hospital due to malnutrition and dehydration, home health aid). Currently in hospital (difficulty with feeding tube) --- feeling better from med tx. 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 Appreciative of supportive and family members. Attending to needs of three children. Feeling overwhelmed and anxious (needing to focus on one task at a time; daily goals; focusing on what I can control ). Self-care (reading, gradually returning to walking, time outdoors). Difficult relationship with mom (critical, controlling, demanding, and mean ); It's like she's the child and I'm the mom ( it makes my anxiety worse, importance of assertiveness). Importance of boundaries and communication with and brothers. Efforts to secure care for children (not just mom). OBJECTIVE: Utilized cognitive behavioral and solution focused [...] plan. Insight: Appropriate Judgment: Appropriate ASSESSMENT: First therapy session since October 2022. Explore and process pt's difficult recovery following major surgery in February 2023, and her efforts to manage anxiety and episodes of low mood. Pt identifies sources of support and the importance of self-care and attending to daily goals. Pt reiterates the importance of attending to the needs of her three children, and her efforts to improve marital communication and teamwork. Continue to explore and process pt's difficult relationship with her mother, and the importance of boundaries and assertiveness. Pt expresses her appreciation for clinician's feedback and support. DIAGNOSIS: PRIMARY: 1: Depression, Controlled Generalized Anxiety Disorder Situational Stress PROVISIONAL: Unspecified trauma and stressor related disorder TREATMENT MODALITIES: Cognitive Behavioral Therapy to behavior modifications, cognitive restructuring, self monitoring and increasing pleasurable activities, Solution Focused Psychotherapy, Supportive Therapy PROGRESS TO DATE: Intermediate Progress: Stable Short Term Condition: Stable GOALS/OBJECTIVES/INTERVENTIONS: To identify and implement tools for effectively managing symptoms of anxiety, stress, and low mood. Approximately 45 minutes were spent with the patient doing therapy. Pablo Lebron [facility] 06-09-2023 History of Presen t illness Narrative Assessment was conducted virtually. Patient is a resident of [place], and completed the assessment virtually in [place]. Psychologist is licensed and stationed in [place]. Informed consent was discussed and verbal assent was granted by the patient. GENERAL PSYCHOLOGY Session #: 4 (session count starts after PSYL NEW EVAL visit) SUBJECTIVE: Major surgery February 2023 (difficult recovery; in and out of hospital due to malnutrition and dehydration, home health aid). Currently in hospital (difficulty with feeding tube) --- feeling better from med tx. 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 Appreciative of supportive and family members. Attending to needs of three children. Feeling overwhelmed and anxious (needing to focus on one task at a time; daily goals; focusing on what I can control ). Self-care (reading, gradually returning to walking, time outdoors). Difficult relationship with mom (critical, controlling, demanding, and mean ); It's like she's the child and I'm the mom ( it makes my anxiety worse, importance of assertiveness). Importance of boundaries and communication with and brothers. Efforts to secure care for children (not just mom). OBJECTIVE: Utilized cognitive behavioral and solution focused [...] plan. Insight: Appropriate Judgment: Appropriate ASSESSMENT: First therapy session since October 2022. Explore and process pt's difficult recovery following major surgery in February 2023, and her efforts to manage anxiety and episodes of low mood. Pt identifies sources of support and the importance of self-care and attending to daily goals. Pt reiterates the importance of attending to the needs of her three children, and her efforts to improve marital communication and teamwork. Continue to explore and process pt's difficult relationship with her mother, and the importance of boundaries and assertiveness. Pt expresses her appreciation for clinician's feedback and support. DIAGNOSIS: PRIMARY: 1: Depression, Controlled Generalized Anxiety Disorder Situational Stress PROVISIONAL: Unspecified trauma and stressor related disorder TREATMENT MODALITIES: Cognitive Behavioral Therapy to behavior modifications, cognitive restructuring, self monitoring and increasing pleasurable activities, Solution Focused Psychotherapy, Supportive Therapy PROGRESS TO DATE: Bailing Machine Operator Progress: Stable Short Term Condition: Stable GOALS/OBJECTIVES/INTERVENTIONS: To identify and implement tools for effectively managing symptoms of anxiety, stress, and low mood. Approximately 45 minutes were spent with the patient doing therapy. Pablo Lebron PsyD documented in this encounter [facility] 06-08-2023 Note [facility] 06-07-2023 Note [facility] 06-03-2023 Note [facility] 06-01-2023 Note [facility] 06-01-2023 History of Presen t illness Narrative TELEMEDICINE VISIT Modified Protocol for treatment of other conditions supportive of goal to minimize vulnerable patient exposure to Covid-19 [facility] Emergency Consented for encounter Patient verified by name and Abbey Garcia [id number] 1990 Patient consents to virtual visit Patient located at home Dr. Ramos located at [facility] office SUBJECTIVE: The patient presents to [facility] Pain Management Department for pain in the abdomen. It is described as: aching(+) burning(+) stabbing(-) The patient rates it as a sometimes severe . The pain is worse when the patient performs the following actions: eating FH: patient denies any family history of the chief complaint for this visit SH: denies illicit drug use Is the patient receiving analgesia/pain relief from the current medications? (+) Has the current medication improved activities of daily living? (+) Have the current medications been associated with any adverse events? (-) Has the patient displayed any aberrant drug-related behaviors? (-) Relevant [place] records were reviewed. ASSEMMENT AND MEDICAL DECISION MAKING The patient is a 33 year old female with epigastric abdominal pain markedly improved after MAL release surgery (Feb 2023 at , Dr. magaña) Post prandial nausea currently limiting caloric intake. I did advise her about the usual expected post operative course, including the gradual improvement in Sx over time. Dx: Gastroesophageal reflux disease without esophagitis Neuralgia and neuritis (primary encounter diagnosis) Median arcuate ligament syndrome (hcc) S/p gastric bypass PLAN 1) agree with tracking of macro/micronutrient intake 2) trial of Ketamine nasal spray 3) Otherwise, return to the office in person, ~4 weeks, for refill I spent a total of 30 minutes on the date of the service which included preparing to see the patient, [id number] patient care, completing clinical documentation, obtaining and/or reviewing separately obtained history, counseling and educating the patient/family/caregiver, ordering medications, tests, or procedures, communicating with other HCPs (not separately reported), independently interpreting results (not separately reported), communicating results to the patient/family/caregiver, and care coordination (not separately reported). Of this, greater than 50% of this was spent for purposes of education and counseling regarding the diagnosis and treatment of pain. Patient is aware that any diagnostic testing is best discussed in person or by telemedicine visit to fully explain the significance and resulting treatment plan. Patient agrees with above. Vic Ramos MD June 01, 2023 documented in this encounter [facility] 05-31-2023 Note [id number] Miscellaneous Notes Significant constipation - no bm since Wednesday, a lot of rectal pressure. Tried her linzess, miralax. Recommended enema OTC + dulcolax suppository. Contact me if not improved. Deacon Kat MD documented in this encounter [facility] 05-28-2023 Miscellaneous Notes ERx for Nutren sent to [facility] today. These orders are unable to be processed here, but may be eligible to fill using [facility] Home [facility]fusion [facility] at [facility]. Please review and if appropriate, send forward for processing. Thank you! [facility] [phone] documented in this encounter [facility] 05-28-2023 Note HNO ID: [id number] Author: ?, ?, ? Service: ? Author Type: ? Type: Plan of Care Filed: 05/31/2023 12:57 Note Text: PHARMACY BEDSIDE DELIVERY SERVICE Patient Name: Abbey Garcia The marked outpatient medications were Filled at: [facility] and delivered to the patient's bedside to [facility]21 Medication List CHANGE how you take these medications methocarbamol 500 mg tablet Commonly known as: ROBAXIN Take 1.5 tablets (750mg) by mouth three times a day. What changed: how much to take * NUTREN 1.5 0.07 gram-1.5 kcal/mL Liqd Generic drug: nutritional supplements 45 mL/hr by FEEDING TUBE route continuous. What changed: Another medication with the same name was added. Make sure you understand how and when to take each. * NUTREN 1.5 0.07 gram-1.5 kcal/mL Liqd Generic drug: nutritional supplements TF for PEG-J Rate: 45cc/hr What changed: You were already taking a medication with the same name, and this prescription was added. Make sure you understand how and when to take each. * This list has 2 medication(s) that are the same as other medications prescribed for you. Read the directions carefully, and ask your doctor or other care provider to review them with you. CONTINUE taking these medications acetaminophen 500 mg tablet Commonly known as: TYLENOL Take 2 tablets by mouth every 6 hours as needed for pain or fever (specify). albuterol HFA 90 mcg/actuation inhaler Commonly known as: PROVENTIL HFA, VENTOLIN HFA docusate sodium 100 mg capsule Commonly known as: COLACE Take 1 capsule by mouth three times daily. decrease the dose or stop for diarrhea escitalopram oxalate 20 mg tablet Commonly known as: LEXAPRO take 1 tablet daily fluticasone-salmeterol 100-50 mcg/dose inhaler Commonly known as: ADVAIR DISKUS levothyroxine 100 mcg tablet Commonly known as: SYNTHROID Take 1 tablet by mouth once daily. linaCLOtide 290 mcg capsule Commonly known as: LINZESS Take 1 capsule by mouth daily at 6 am. liothyronine 5 mcg tablet Commonly known as: CYTOMEL metoclopramide HCl 5 mg tablet Commonly known as: REGLAN mirtazapine 15 mg tablet Commonly known as: REMERON Take 1 tablet by mouth daily at bedtime. ondansetron 4 mg tablet Commonly known as: ZOFRAN Take 1 tablet by mouth every 8 hours as needed for nausea/vomiting. pantoprazole 40 mg Grps Commonly known as: PROTONIX polyethylene glycol 3350 17 gram/dose powder Commonly known as: MIRALAX Take 17 g by mouth twice daily. reduced the dose or stop if you get diarrhea and restart after 48 hours to maintain 'at least' once a day bowel movement. Dissolve dose in 4 - 8 ounces of liquid and take as directed. prochlorperazine 10 mg tablet Commonly known as: COMPAZINE Take 1 tablet by mouth every 6 hours for 14 days. scopolamine 1 mg over 3 days Commonly known as: TRANSDERM-SCOP Apply 1 Patch as directed every 72 hours for 12 days. topiramate 100 mg tablet Commonly known as: TOPAMAX You might also be taking other medications not listed above. If you have questions about any of your other medications, talk to the person who prescribed them or your Primary Care Provider. Xiomara Hernandez PAGER: [phone] May 31, 2023 12:57 PM [facility] 05-28-2023 Miscellaneous Notes [facility] requesting 90-day refills as follows: Patient being discharged today; on review of her discharge meds, Linzess dosage remains the same as below Requested Prescriptions Pending Prescriptions Disp Refills linaCLOtide (LINZESS) 290 mcg capsule 90 capsule 1 Sig: Take 1 capsule by mouth daily at 6 am. Please review and advise. Grecia Wallace documented in this encounter [facility] 05-28-2023 Note HNO ID: [id number] Author: MOHIT DINERO MD Service: General Surgery Author Type: Resident Type: Progress Notes Filed: 05/28/2023 07:49 Note Text: Abbey Sandra Garcia [id number] ASSESSMENT AND PLAN Ms. Garcia, a 33-year-old female with PMH anemia, PCOS, GERD, and chronic abdominal pain. PSH laparoscopic cholecystectomy in 2008, sleeve gastrectomy in 2020, conversion to gastric bypass in 2021, lap assisted ERCP with sphincterotomy in 2022, and MALS surgery in February 2023. Despite these surgeries, she continues to experience chronic postprandial pain and nausea. 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 She had a Corpak placed on 05/19 and TF started which she tolerated. She then presented 05/24 to endoscopy suit for PEJ placement. Procedure was done without complication and she was admitted for observation. Plan - Neuro/pain: multimodal pain regimen, Robxin for ms cramps, continue lexapro - Cardiac:No cardiac needs - Lung: on RA - Endo: continue home Synthroid and cytomel - Renal: replete lytes prn, monitor I/Os - FEN-GI: on GI soft and TF (advanced to goal), has a scopolamine patch, shceduled Reglan. Senna s. PPI - ID: completed periop abx - DVT Prophylaxis or AC: hep 5000 bid, SCDs - Drains/lines: PIV - Activity: OOB, encourage ambulation - Dispo: d/c home today Mohit Dinero MD General Surgery Resident Service Pager: [phone] After 6PM + Weekends: [phone] Patient Active Hospital Problem List: Decreased oral intake (05/25/2023) Malnutrition of mild degree (HCC) (04/06/2020) SUBJECTIVE: NAEON TF at goal - tolerating OBJECTIVE: BP 114/70 Pulse 73 Temp 36.8 ?C (98.2 ?F) (Oral) Resp 16 Ht 167.6 cm (5' 6 ) Wt 74.8 kg (165 lb) LMP 08/19/2020 SpO2 100% BMI 26.63 kg/m? Body mass index is 26.63 kg/m?. GENERAL: Alert and oriented, no acute distress, cooperative. CARDIAC: regular rate LUNGS: Non labored breathing ABDOMEN: soft, mildly tender around the tube, mildly distended, PEGJ tube in place WOUND: clean, dry and intact Labs: CBC, Coags, BMP, Mg, Phos Recent Labs 05/28/23 0644 05/27/23 0844 05/26/23 0604 WBC 6.24 6.24 5.34 HB 11.1* 12.8 11.5 HCT 31.5* 36.5 33.8* PLT 199 205 181 NA -- 139 136 K -- 4.0 4.3 CHLOR -- 104 103 CO2 -- 25 20* BUN -- 6* 10 CREAT -- 0.57* 0.68 GLUC -- 101* 71* CA -- 8.9 9.0 MG -- 1.8 1.6* P -- 2.4* 4.5 Liver Function, Amylase, AND Lipase I/O past 24h: Intake/Output Summary (Last 24 hours) at 05/28/2023 0749 Last data filed at 05/28/2023 0030 Gross per 24 hour Intake 1203 ml Output -- Net 1203 ml LDA: Lines, Drains, and Airways Line Duration Peripheral 05/28/23 0030 Left Forearm 22 Gauge <1 day Drain Duration GI/ Feeding 05/25/23 1448 [facility] Gastric Left Abdomen 2 days SURGERY/PROCEDURE: * No surgeons found in log * [facility] 05-27-2023 Note HNO ID: [id number] Author: YVETTE CAPUTO LSW Service: Care Management Author Type: Cooperative Education Coordinator Type: Care Mgt Progress Note Filed: 05/27/2023 12:41 Note Text: CARE MANAGEMENT DISCHARGE NOTE SERVICE DATE: May 27, 2023 SERVICE TIME: 12:41 PM Admission Date: 05/25/2023 LOS: 1 day Discharge Arrangement Discharge Arrangement: Home with Home Health Services Arranged Medical Services: Skilled Home Health Care Type: Long-Term Provider Name: SEE BELOW Caregiver Assessment Caregiver is ready, willing and able to meet the patient's needs as recommended by the inter-professional team: No Caregiver needed Transportation Arrangements Transportation Arrangements: Car Handoff Communication: Handoff to: Primary Care Physician Additional Information: Discharge Information Row Name Admission (Current) from EGD from 05/25/2023 in [facility] Agency [facility] Phone/ Pt will dc home and resume TF with [facility]- and [facility]. will provide DC transport. SIGNATURE: LIA Viveros PATIENT NAME: Abbey Garcia DATE: May 27, 2023 TIME: 12:41 PM CONTACT #: [phone] [facility] 05-27-2023 Note HNO ID: [id number] Author: EH KIMBALL, DEE Service: Nursing Author Type: Registered Nurse Type: Nursing Progress Note Filed: 05/27/2023 09:20 Note Text: Other: 0900 Pt verbalizes interest about bolus feeding. Shopping Investigator made aware. [facility] 05-27-2023 Note HNO ID: [id number] Author: MOHIT DINERO MD Service: General Surgery Author Type: Resident Type: Progress Notes Filed: 05/27/2023 10:20 Note Text: Abbey Garcia [id number] ASSESSMENT AND PLAN Ms. Garcia, a 33-year-old female with PMH anemia, PCOS, GERD, and chronic abdominal pain. PSH laparoscopic cholecystectomy in 2008, sleeve gastrectomy in 2020, conversion to gastric bypass in 2021, lap assisted ERCP with sphincterotomy in 2022, and MALS surgery in February 2023. Despite these surgeries, she continues to experience chronic postprandial pain and nausea. 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 She had a Corpak placed on 05/19 and TF started which she tolerated. She then presented 05/24 to endoscopy suit for PEJ placement. Procedure was done without complication and she was admitted for observation. Plan - Neuro/pain: multimodal pain regimen, Robxin for ms cramps, continue lexapro - Cardiac:No cardiac needs - Lung: on RA - Endo: restarted home Synthroid and cytomel - Renal: replete lytes prn, monitor I/Os - FEN-GI: on GI soft and TF (advance to goal), has a scopolamine patch, shceduled Reglan. Senna s. PPI - ID: completed periop abx - DVT Prophylaxis or AC: hep 5000 bid, SCDs - Drains/lines: PIV - Activity: OOB, encourage ambulation - Dispo: d/c home today Mohit Dinero MD General Surgery Resident Service Pager: [phone] After 6PM + Weekends: [phone] Patient Active Hospital Problem List: Decreased oral intake (05/25/2023) Malnutrition of mild degree (HCC) (04/06/2020) SUBJECTIVE: NAEON TF at goal - tolerating OBJECTIVE: BP 127/67 Pulse 76 Temp 36.4 ?C (97.5 ?F) (Oral) Resp 18 Ht 167.6 cm (5' 6 ) Wt 74.8 kg (165 lb) LMP 08/19/2020 SpO2 99% BMI 26.63 kg/m? Body mass index is 26.63 kg/m?. GENERAL: Alert and oriented, no acute distress, cooperative. CARDIAC: regular rate LUNGS: Non labored breathing ABDOMEN: soft, mildly tender around the tube, mildly distended, PEGJ tube in place WOUND: clean, dry and intact Labs: CBC, Coags, BMP, Mg, Phos Recent Labs 05/26/23 0604 WBC 5.34 HB 11.5 HCT 33.8* PLT 181 NA 136 K 4.3 CHLOR 103 CO2 20* BUN 10 CREAT 0.68 GLUC 71* CA 9.0 MG 1.6* P 4.5 Liver Function, Amylase, AND Lipase I/O past 24h: Intake/Output Summary (Last 24 hours) at 05/27/2023 0623 Last data filed at 05/27/2023 0215 Gross per 24 hour Intake 1087 ml Output -- Net 1087 ml LDA: Lines, Drains, and Airways Line Duration Peripheral 05/25/23 1448 [facility] Right Antecubital 20 Gauge 1 day Drain Duration GI/ Feeding 05/25/23 1448 [facility] Gastric Left Abdomen 1 day SURGERY/PROCEDURE: * No surgeons found in log * [facility] 05-26-2023 Note HNO ID: [id number] Author: YVETTE CAUPTO LSW Service: Care Management Author Type: Cooperative Education Coordinator Type: Care Mgt Initial Assessment Filed: 05/26/2023 11:13 Note Text: CARE MANAGEMENT: ASSESSMENT AND DISCHARGE PLAN SERVICE DATE: May 26, 2023 SERVICE TIME: 11:10 AM PCP: Jaquan Morrow APRN, CNP, APRN.CNP Primary Contact: Extended Emergency Contact Information Primary Emergency Contact: Melisa Garcia Address: [id number] [place] [address] Mobile Relation: Spouse Admission Status: Observation Insurance Provider: [employer] PPO Discharge Planning requested by: Per Department Practice Potential Transition Plans Home Care Advance Directives Current Advance Directive: Health Care Power of Survey Instrument Operator In Chart: Yes Up To Date and Valid: Yes Current Living Arrangements and Support Lives with: Children, Spouse/significant other Type of Residence: Private Residence (House) Does the patient have to climb stairs at home?: Yes;stairs outside the home;stairs within the home Support: Family members, Spouse/significant other How do you manage to accomplish the following: Independent: Ambulation;Bathe/Shower;Dress;Me als/Meal Prep;Going to the bathroom;Medication Management;Transportation to appointments/community Current Services/Equipment Current Post-Acute Service(s): DME Current DME Type: Feeding tube and supplies Discharge Planning Patient Goal(s): Be able to go home, General wellness [place] of Choice Explained: [place] of Choice Given: Yes (resume [facility]) Level of Care Discussed: Home Care Are you interested in bedside delivery of your medications? No Discharge Planning Participant(s): Patient Patient/Family Comments: none Caregiver Assessment: Caregiver is ready, willing and able to meet the patient's needs as recommended by the inter-professional team: Yes Name of Caregiver: [facility] Transport at Discharge: Transportation Arrangements: Car Needs Prior to Discharge: Needs Prior to Discharge: Home Care Order;Nutrition Enteral Arrangements Advance Care Planning HCPOA paper[place]ok on file within [employer] and verified to be current as of date/time of this note: Yes Legal Next of Kin Hierarchy per [place] Revised Code: Healthcare Power of Survey Instrument Operator-Melisa Jose [phone] Legal Spouse Majority of Adult Children (consensus if possible) Parents Majority of Adult Siblings (consensus if possible) Nearest Blood Relative LIA Viveros May 26, 2023 Post-Acute Discharge Plan: Pt admitted under OBS s/p PEJ placement. PMHx gastric bypass 2021, chronic abd pain. Independent of ADLS and iADLS, from home, lives with and 3 kids age 3, 5, 6, employed, drives. Active with [facility] for TF, will NEED HHC ORDER and TF script to resume. DC transportation will be provided by Melisa [phone]. SIGNATURE: LIA Viveros PATIENT NAME: Abbey Garcia DATE: May 26, 2023 TIME: 11:10 AM CONTACT #: [phone] [facility] 05-26-2023 Note HNO ID: [id number] Author: DEACON KAT MD Service: General Surgery Author Type: Physician Type: Progress Notes Filed: 05/26/2023 15:56 Note Text: Abbey Garcia [id number] ASSESSMENT AND PLAN Ms. Garcia, a 33-year-old female with PMH anemia, PCOS, GERD, and chronic abdominal pain. PSH laparoscopic cholecystectomy in 2008, sleeve gastrectomy in 2020, conversion to gastric bypass in 2021, lap assisted ERCP with sphincterotomy in 2022, and MALS surgery in February 2023. Despite these surgeries, she continues to experience chronic postprandial pain and nausea. 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 She had a Corpak placed on 05/19 and TF started which she tolerated. She then presented 05/24 to endoscopy suit for PEJ placement. Procedure was done without complication and she was admitted for observation. Plan - Neuro/pain: multimodal pain regimen, Robxin for ms cramps, restarted lexapro - Cardiac:No cardiac needs - Lung: on RA - Endo: restarted home Synthroid and cytomel - Renal: replete lytes prn, monitor I/Os - FEN-GI: on GI soft and TF (advance to goal), has a scopolamine patch, ordered compazine and Reglan. Senna s. PPI - ID: completed periop abx - DVT Prophylaxis or AC: hep 5000 bid, SCDs - Drains/lines: PIV - Activity: OOB, encourage ambulation - Dispo: Houston Crespo MD General Surgery PGY1 [id number] Patient Active Hospital Problem List: Decreased oral intake (05/25/2023) SUBJECTIVE: Was nauseated and vomited overnight OBJECTIVE: BP 120/65 Pulse 73 Temp 36.8 ?C (98.2 ?F) (Oral) Resp 16 Ht 167.6 cm (5' 6 ) Wt 74.8 kg (165 lb) LMP 08/19/2020 SpO2 98% BMI 26.63 kg/m? Body mass index is 26.63 kg/m?. GENERAL: Alert and oriented, no acute distress, cooperative. CARDIAC: regular rate LUNGS: Non labored breathing ABDOMEN: soft, mildly tender around the tube , mildly distended, J tube in place WOUND: clean, dry and intact Labs: CBC, Coags, BMP, Mg, Phos Recent Labs 05/26/23 0604 WBC 5.34 HB 11.5 HCT 33.8* PLT 181 NA 136 K 4.3 CHLOR 103 CO2 20* BUN 10 CREAT 0.68 GLUC 71* CA 9.0 MG 1.6* P 4.5 Liver Function, Amylase, AND Lipase I/O past 24h: Intake/Output Summary (Last 24 hours) at 05/26/2023 0828 Last data filed at 05/25/2023 2120 Gross per 24 hour Intake 550 ml Output 100 ml Net 450 ml LDA: Lines, Drains, and Airways Line Duration Peripheral 05/25/23 1448 [facility] Right Antecubital 20 Gauge <1 day Drain Duration GI/ Feeding 05/25/23 1448 [facility] Gastric Left Abdomen <1 day SURGERY/PROCEDURE: * No surgeons found in log * I saw and evaluated the patient. Discussed with the resident and agree with resident's findings and plan as documented in the resident's note. Start tube feeds today, home when she is tolerating. 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 Staffing Anesthesiologist: Kelby Quezada MD DIRECTOR OF ACCOUNTING: Marlen Slade APRN.DIRECTOR OF ACCOUNTING Performed by: DIRECTOR OF ACCOUNTING Indications and Patient Condition Indications for airway management: anesthesia Preoxygenated: yes anesthesia circuit Patient position: sniffing Method: asleep Difficult Mask: No Final Airway Details Final airway type: endotracheal airway Final Endotracheal Airway: ETT Cuffed: yes Successful intubation technique: direct laryngoscopy Endotracheal tube insertion site: oral Blade: Cherrie Blade size: #4 ETT size (mm): 7.0 Measured from: lips Measurement (cm): 21 Placement verified by: chest auscultation and capnometry Cormack-Lehane Classification: grade I - full view of glottis Number of attempts at approach: 1 Airway not difficult Comments Atraumatic; pre-anesthetic condition of lips and teeth intact. SIGNATURE: Marlen Slade APRN.CRNA PATIENT NAME: Abbey Garcia DATE: May 25, 2023 TIME: 2:11 PM CSN: [id number] [facility] 05-24-2023 Note [id number] [facility] 05-22-2023 Note HNO ID: [id number] Author: ?, ?, ? Service: ? Author Type: ? Type: Plan of Care Filed: 05/24/2023 10:43 Note Text: PHARMACY BEDSIDE DELIVERY SERVICE Patient Name: Abbey aGrcia The marked outpatient medications were Filled at: [facility] and delivered to the patient's bedside to [id number] Medication List START taking these medications methocarbamol 500 mg tablet Commonly known as: ROBAXIN Take 1 tablet by mouth three times a day for 7 days. NUTREN 1.5 0.07 gram-1.5 kcal/mL Liqd Generic drug: nutritional supplements 45 mL/hr by FEEDING TUBE route continuous. ondansetron 4 mg tablet Commonly known as: ZOFRAN Take 1 tablet by mouth every 8 hours as needed for nausea/vomiting. prochlorperazine 10 mg tablet Commonly known as: COMPAZINE Take 1 tablet by mouth every 6 hours for 14 days. scopolamine 1 mg over 3 days Commonly known as: TRANSDERM-SCOP Apply 1 Patch as directed every 72 hours for 12 days. CONTINUE taking these medications acetaminophen 500 mg tablet Commonly known as: TYLENOL Take 2 tablets by mouth every 6 hours as needed for pain or fever (specify). albuterol HFA 90 mcg/actuation inhaler Commonly known as: PROVENTIL HFA, VENTOLIN HFA docusate sodium 100 mg capsule Commonly known as: COLACE Take 1 capsule by mouth three times daily. decrease the dose or stop for diarrhea escitalopram oxalate 20 mg tablet Commonly known as: LEXAPRO take 1 tablet daily fluticasone-salmeterol 100-50 mcg/dose inhaler Commonly known as: ADVAIR DISKUS levothyroxine 100 mcg tablet Commonly known as: SYNTHROID Take 1 tablet by mouth once daily. linaCLOtide 290 mcg capsule Commonly known as: LINZESS Take 1 capsule by mouth daily at 6 am. liothyronine 5 mcg tablet Commonly known as: CYTOMEL metoclopramide HCl 5 mg tablet Commonly known as: REGLAN mirtazapine 15 mg tablet Commonly known as: REMERON Take 1 tablet by mouth daily at bedtime. pantoprazole 40 mg Grps Commonly known as: PROTONIX polyethylene glycol 3350 17 gram/dose powder Commonly known as: MIRALAX Take 17 g by mouth twice daily. reduced the dose or stop if you get diarrhea and restart after 48 hours to maintain 'at least' once a day bowel movement. Dissolve dose in 4 - 8 ounces of liquid and take as directed. topiramate 100 mg tablet Commonly known as: TOPAMAX You might also be taking other medications not listed above. If you have questions about any of your other medications, talk to the person who prescribed them or your Primary Care Provider. STOP taking these medications promethazine 25 mg tablet Commonly known as: PHENERGAN Xiomara Hernandez PAGER: [phone] May 24, 2023 10:42 AM [facility] 05-21-2023 Note HNO ID: [id number] Author: AUDELIA CHRISTY RN Service: Care Management Author Type: Registered Nurse Type: Care Mgt Progress Note Filed: 05/21/2023 15:04 Note Text: CARE MANAGEMENT WEEKEND PLANNING NOTE DISCHARGE OR POSSIBLE DISCHARGE Date/Time: 3:01 PM Disposition: [facility] for TF and supplies Transport: pt will arrange, Melisa Other Concerns: Weekend Industrial Engineering Technologist Pager #: Nadiya Love [phone] or Pablo Gaitan [phone] SIGNATURE: Audelia Christy RN PATIENT NAME: Abbey Garcia DATE: May 21, 2023 TIME: 3:01 PM PAGER/CONTACT #: [phone] [facility] 05-21-2023 Note HNO ID: [id number] Author: JAIME NAVAS MD Service: General Surgery Author Type: Physician Type: Progress Notes Filed: 05/21/2023 11:59 Note Text: Documentation Query Based on your medical judgment of the clinical indicators outlined below, please clarify the condition: (Please type X next to your response and sign) Clinical Indicators: / ED notes: Patient presents with abdominal pains, nausea and vomiting States every time she eats or drinks something she develops abdominal pains, vomits about 10 minutes later, has not been able to keep down any food or drink over the past 2 weeks. Recent admission for malnutrition. 05/18 Nutrition Therapy notes: Nutrition Assessment:Recommended Malnutrition Diagnosis: Mild Protein-Calorie Malnutrition In the context of: Acute Illness or Injury Based on: Insufficient Energy Intake Intake History: Nutrition Intake Prior to Admission: Less than 50% estimated energy needs greater than 7 days Current Nutrition Intake: NPO Current Intake Over time: (NPO x 1 day) Body mass index is 27.91 kg/m?. Weight change percentage over time: Wt loss 7 % over the past 3-6 months Care Plan: Follow for diet advancement to goal Supplements: Ensure Max Vitamins and Minerals: Multivitamin with minerals, Thiamine Medications: Pro-motility agents, Anti-emetics, Appetite stimulants, IV Magnesium sulfate 2 gm Enteral Nutrition Tube Feeding Formula Type: Nutren 1.5 Goal Rate (mL/hr x hours): 45 ml hr x 24 hr = 1080 ml = 1620 kcal and 73 gm protein Water Flush Volume (mL x frequency: 100 ml q 4 Recommended Enteral Access: Small Bore, Nasal, Jejunal Monitor and Evaluation: Meet greater than 75% of estimated needs, Monitor labs, I/Os, vital signs, weight, Monitor fluid/electrolyte balance, Monitor bowel function, Monitor tolerance to tube feeding Treatment: 05/19 Corpak placement Please clarify the Patient's Nutritional Status x Mild Protein Calorie Malnutrition based on the above assessment, plan, and treatment Other, please specify [facility] 05-21-2023 Note HNO ID: [id number] Author: AUDELIA CHRISTY RN Service: Care Management Author Type: Registered Nurse Type: Care Mgt Initial Assessment Filed: 05/21/2023 15:01 Note Text: CARE MANAGEMENT: ASSESSMENT AND DISCHARGE PLAN SERVICE DATE: May 21, 2023 SERVICE TIME: 11:23 AM PCP: Jaquan Morrow APRN, [facility] Primary Contact: Extended Emergency Contact Information Primary Emergency Contact: Jose, Melisa Address: [id number] [place] [address] Mobile Relation: Spouse Admission Status: Inpatient Insurance Provider: [employer] PPO Discharge Planning requested by: Per Department Practice Potential Transition Plans Home Care Advance Directives Current Advance Directive: Health Care Power of Survey Instrument Operator In Chart: Yes Up To Date and Valid: Yes Current Living Arrangements and Support Lives with: Spouse/significant other Type of Residence: Private Residence (House) Support: Spouse/significant other How do you manage to accomplish the following: Independent: Ambulation;Bathe/Shower;Dress;Me als/Meal Prep;Going to the bathroom;Medication Management;Transportation to appointments/community Current Services/Equipment Current Post-Acute Service(s): Skilled Home Care ([facility] in the past) Discharge Planning Patient Goal(s): General wellness, Be able to go home [place] of Choice Explained: [place] of Choice Given: Yes Level of Care Discussed: Home Care Are you interested in bedside delivery of your medications? No Discharge Planning Participant(s): Patient Patient/Family Comments: Caregiver Assessment: Caregiver is ready, willing and able to meet the patient's needs as recommended by the inter-professional team: Yes Name of Caregiver: [facility] TBD Transport at Discharge: Transportation Arrangements: Car Needs Prior to Discharge: Needs Prior to Discharge: Nutrition Enteral Arrangements Post-Acute Discharge Plan: This CM met with the pt at the bedside for assessment. Pt is alert and oriented x3. Pt lives with her . Pt states she had [facility] in the past for TPN, she will now need TF at dc A STEF referral was sent to [facility]. TF script is needed be 12 noon today. [facility]. Referrals were sent for the TF and supplies. Anticipate Pt will arrange own transportation at dc, her can assist. CM remains available to assist if further skilled dc needs arise. SIGNATURE: Audelia Christy RN PATIENT NAME: Abbey Garcia DATE: May 21, 2023 TIME: 11:23 AM CONTACT #: [phone] [facility] 05-21-2023 Note HNO ID: [id number] Author: AUDELIA CHRISTY RN Service: Care Management Author Type: Registered Nurse Type: Care Mgt Progress Note Filed: 05/21/2023 11:02 Note Text: 11:01 AM pt needs home TF, script is needed by 12noon [facility] is needed, had [facility] in the past [facility] 05-21-2023 Note HNO ID: [id number] Author: JAIME NAVAS MD Service: General Surgery Author Type: Physician Type: Progress Notes Filed: 05/21/2023 08:59 Note Text: SURGERY PROGRESS NOTE Abbey Garcia [id number] ASSESSMENT AND PLAN Ms. Garcia is a 33 year old female with PMHx anemia, PONV, PCOS, GERD and chronic abdominal pain. She is presenting with chronic postprandial pain and nausea. 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 She reports onset of her chronic pain was prior to any surgeries and her pain improves transiently for various periods of time post-op but eventually returns. Now admitted 05/17 (s/p MALS surgery in February) for worsening pain for 2 weeks and inability to tolerate any PO intake. She has had extensive testing including EGD, UGIs and CTs without a clear cause of her symptoms. Pain controlled, no emesis since admission. S/p corpak placement on 05/19, patient was nauseous overnight and TF were held. Patient mentioned being nauseated, dizzy and sometimes lightheaded whenever she moves a lot, stand up or move her head. Based on those symptoms we suspect possible neurological pathology such as POTS vs meniere's disease. We plan on advancing TF to goal, plan for outpatient PEG on Wednesday 05/24, and outpatient neurology referral. Plan Neuro/Pain: Continue current pain control regimen Cardio/Resp: Incentive spirometry FEN/GI: mIVF. Replete Lytes prn. Diet: TF with sips of clears. Zofran prn. Renal: Strict I/Os. Heme/DVT PPx: ICDs, SQH Wound/ID: No evidence of infection; no indication for antibiotics Heme: No evidence of bleeding; no indication for transfusion Lines/drains: corpak Activity: Out of Bed, ambulate as able. Dispo: RNF Plan discussed with staff Tramaine Solano MD General Surgery, PGY1 General Surgery [place] Service Pager: [phone] General Surgery Colorectal Surgery On-Call Pager: [phone] SUBJECTIVE: Pain well controlled. Patient was nauseated overnight so TF were held OBJECTIVE: BP 108/66 Pulse 64 Temp 36.7 ?C (98.1 ?F) (Oral) Resp 16 Ht 167.6 cm (5' 6 ) Wt 78.4 kg (172 lb 14.4 oz) LMP 08/19/2020 SpO2 100% BMI 27.91 kg/m? GENERAL: Alert and oriented, no acute distress NEUROLOGIC/PSYCHIATRIC: Alert, Oriented x3 HEENT: Sclera non-icteric; corpak in place LUNGS: no increased work of breathing on room air HEART: Regular rate and rhythm ABDOMEN: Soft, non-tender, no rigidity or rebound tenderness, well healed midline scar INTEGUMENTARY: No appreciable rashes or lesions MUSCULOSKELETAL: No deformities Labs: CBC, Coags, BMP, Mg, Phos Recent Labs 05/21/23 0604 05/20/23 0914 05/19/23 1559 05/18/23 0953 WBC -- 2.51* 3.57* 4.79 HB -- 12.4 11.2* 14.8 HCT -- 36.0 33.3* 43.5 PLT -- 176 150 226 NA 138 142 135* 141 K 3.8 4.1 4.1 4.3 CHLOR 107* 109* 104 106* CO2 19* 21* 15* 21* BUN 5* 6* 8 7 CREAT 0.72 0.75 0.71 0.82 GLUC 85 91 73* 79 CA 8.8 8.8 8.4* 9.2 MG 1.9 1.9 -- 2.1 P 4.1 3.8 -- -- Liver Function, Amylase, AND Lipase Recent Labs 05/18/23 0953 TPROT 7.4 ALB 4.7 ALT 19 AST 42* ALKPHOS 76 TBILI 0.4 LIPASE 37 I/O past 24h: Intake/Output Summary (Last 24 hours) at 05/21/2023 0823 Last data filed at 05/21/2023 0542 Gross per 24 hour Intake 1358 ml Output 550 ml Net 808 ml LDA: Lines, Drains, and Airways Line Duration Peripheral 05/20/23 1144 [facility] Short Left Antecubital 20 Gauge <1 day Drain Duration GI/ Feeding 05/20/23 0922 [facility] Left Naris 12 Fr <1 day I saw and evaluated the patient. Discussed with the resident and agree with resident's findings and plan as documented in the resident's note. Danay Navas MD [facility] 05-19-2023 Note HNO ID: [id number] Author: ADAM RENDON MD Service: General Surgery Author Type: Resident Type: Progress Notes Filed: 05/19/2023 12:35 Note Text: SURGERY PROGRESS NOTE Abbey Garcia [id number] ASSESSMENT AND PLAN Ms. Garcia is a 33 year old female with PMHx anemia, PONV, PCOS, GERD and chronic abdominal pain. She is presenting with chronic postprandial pain and nausea. 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 She reports onset of her chronic pain was prior to any surgeries and her pain improves transiently for various periods of time post-op but eventually returns. Now admitted 05/17 (s/p MALS surgery in February) for worsening pain for 2 weeks and inability to tolerate any PO intake. She has had extensive testing including EGD, UGIs and CTs without a clear cause of her symptoms. Pain controlled, no emesis since admission. Receiving IV hydration. Will plan for corpak placement tomorrow. Plan Keep NPO Pain and nausea management Follow up nutrition labs Corpak placement tomorrow Plan discussed with staff, Dr. Kat Adam Rendon M.D. General Surgery PGY2 [id number] SUBJECTIVE: No acute events overnight. Pain well controlled. No nausea or vomiting. NPO, no bowel movement overnight OBJECTIVE: BP 110/52 Pulse (!) 54 Temp 36.5 ?C (97.7 ?F) (Oral) Resp 20 Ht 167.6 cm (5' 6 ) Wt 78.4 kg (172 lb 14.4 oz) LMP 08/19/2020 SpO2 100% BMI 27.91 kg/m? GENERAL: Alert and oriented, no acute distress NEUROLOGIC/PSYCHIATRIC: Alert, Oriented x3 HEENT: Sclera non-icteric LUNGS: no increased work of breathing on room air HEART: Regular rate and rhythm ABDOMEN: Soft, epigastric and LUQ tenderness, no rigidity or rebound tenderness, well healed midline scar INTEGUMENTARY: No appreciable rashes or lesions MUSCULOSKELETAL: No deformities Labs: CBC, Coags, BMP, Mg, Phos Recent Labs 05/18/23 0953 WBC 4.79 HB 14.8 HCT 43.5 PLT 226 NA 141 K 4.3 CHLOR 106* CO2 21* BUN 7 CREAT 0.82 GLUC 79 CA 9.2 MG 2.1 Liver Function, Amylase, AND Lipase Recent Labs 05/18/23 0953 TPROT 7.4 ALB 4.7 ALT 19 AST 42* ALKPHOS 76 TBILI 0.4 LIPASE 37 I/O past 24h: Intake/Output Summary (Last 24 hours) at 05/19/2023 1231 Last data filed at 05/19/2023 0852 Gross per 24 hour Intake 650 ml Output 0 ml Net 650 ml LDA: Lines, Drains, and Airways Line Duration Peripheral 05/18/23 0953 [facility] Short Left Arm 20 Gauge 1 day SURGERY/PROCEDURE: * Surgery not found * [facility] 05-17-2023 Hospital Discharg e instructions Patient Education 05/17/2023 15:06:10 Vomiting, Adult Vomiting, Adult Vomiting is when stomach contents forcefully come out of the mouth. Many people notice nausea before vomiting. Vomiting can make you feel weak and cause you to become dehydrated. Dehydration can make you feel tired and thirsty, cause you to have a dry mouth, and decrease how often you urinate. Older adults and people who have other diseases or a weak body defense system (immune system) are at higher risk for dehydration. It is important to treat vomiting as told by your health care provider. Follow these instructions at home: Watch your symptoms for any changes. Tell your health care provider about them. Eating and drinking Follow these recommendations as told by your health care provider: Take an oral rehydration solution (ORS). This is a drink that is sold at pharmacies and retail stores. Eat bland, uizc-fl-mugpyh foods in small amounts as you are able. These foods include bananas, applesauce, rice, lean meats, toast, and crackers. Drink clear fluids slowly and in small amounts as you are able. Clear fluids include water, ice chips, low-calorie sports drinks, and fruit juice that has water added (diluted fruit juice). Avoid drinking fluids that contain a lot of sugar or caffeine, such as energy drinks, sports drinks, and soda. Avoid alcohol. Avoid spicy or fatty foods. General instructions Wash your hands often using soap and water for at least 20 seconds. If soap and water are not available, use hand coil winding machines set up mechanic. Make sure that everyone in your household washes their hands frequently. Take gidq-hpf-nmewwpg and prescription medicines only as told by your health care provider. Rest at home while you recover. Watch your condition for any changes. Keep all follow-up visits. This is important. Contact a health care provider if: Your vomiting gets worse. You have new symptoms. You have a fever. You cannot drink fluids without vomiting. You feel light-headed or dizzy. You have a headache. You have muscle cramps. You have a rash. You have pain while urinating. Get help right away if: You have pain in your chest, neck, arm, or jaw. Your heart is beating very quickly. You have trouble breathing or you are breathing very quickly. You feel extremely weak or you faint. Your skin feels cold and clammy. You feel confused. You have persistent vomiting. You have vomit that is bright red or looks like black coffee grounds. You have stools (feces) that are bloody or black, or stools that look like tar. You have a severe headache, a stiff neck, or both. You have severe pain, cramping, or bloating in your abdomen. You have signs of dehydration, such as: ?Dark urine, very little urine, or no urine. ?Cracked lips. ?Dry mouth. ?Sunken eyes. ?Sleepiness. ?Weakness. These symptoms may be an emergency. Get help right away. Call 911. Do not wait to see if the symptoms will go away. Do not drive yourself to the hospital. Summary Vomiting is when stomach contents forcefully come out of the mouth. Vomiting can cause you to become dehydrated. It is important to treat vomiting as told by your health care provider. Follow your health care provider's instructions about eating and drinking. Wash your hands often using soap and water for at least 20 seconds. If soap and water are not available, use hand coil winding machines set up mechanic. Watch your condition for any changes and for signs of dehydration. Keep all follow-up visits. This is important. This information is not intended to replace advice given to you by your health care provider. Make sure you discuss any questions you have with your health care provider. Document Revised: 08/08/2021 Document Reviewed: 08/08/2021 [employer] Patient Education 2022 [employer]. Follow Up Care 05/17/2023 14:15:17 With:Jaquan Paula FAM, [facility] Address: When:05/20/2023 [facility] 05-17-2023 Note [facility] 05-17-2023 History of Presen t illness Narrative VIRTUAL VISIT PROGRESS NOTE This is a virtual visit using Nay[employer] Zoom Video Visit. It required patient-provider interaction for the medical decision making as documented below. I have communicated my name and active licensure. The patient's identity and physical location were verified at the time of this visit. Either the patient or their legal kiosk sales representative has been informed of the risks and benefits of -- and alternatives to -- treatment through a remote evaluation and consents to proceed with the evaluation remotely. Patient in the waiting room of another hospital's ER. Abbey Garcia is a 33 year old female seen for nausea/vomiting/abdominal pain. Had open MALS surgery 2.5 months ago, felt good for 1-1.5 months, now feels worse. Had EGD and CTs last week that I don't have access to. Post prandial nausea, LUQ pain, even with liquids. also on the call, concerned her pouch is too small . PHYSICAL EXAMINATION: VIDEO EXAM: (if completed, performed via video enabled technology) GENERAL: well-hydrated, well nourished and appears tired TESTING UGI series from February via care everywhere, images not available: Addendum by Corie Garza MD on 04/01/2023 12:58 PM EST Interpreted By: Corie Garza, ADDENDUM: The exam was a single contrast upper GI with small-bowel follow-through Signed by: Corie Garza 04/01/2023 12:58 PM -------- ORIGINAL REPORT -------- Dictation workstation: [id number] Impression Postsurgical changes from gastric bypass. No evidence for obstruction.. MACRO: none Signed by: Corie Garza 03/17/2023 5:00 PM Dictation workstation: [id number] Narrative Interpreted By: Corie Garza, STUDY: FL UPPER GI W DOUBLE CONTRAST W SMALL BOWEL FOLLOW THROUGH; 03/17/2023 4:40 pm INDICATION: Signs/Symptoms:abdominal pain. COMPARISON: None. ACCESSION NUMBER(S): [id number] ORDERING CLINICIAN: TIFFANIE MENDEZ TECHNIQUE: Multiple fluoroscopic spot images were obtained during a single contrast upper GI with KUB. 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 Contrast is seen passing easily from the distal esophagus into the gastric remnant and Tan loop. No evidence for extravasation is noted. No abnormally dilated loops of small bowel are noted. Contrast reaches large bowel within 150 minutes of administration of contrast. CT from February post surgery: Impression Patchy ground-glass densities in the bilateral lung bases may represent atelectasis. Multiple cystic lesions scattered throughout both lobes of the liver. Postsurgical changes of Tan-en-Y gastric bypass. MACRO: none Signed by: Corie Garza 03/16/2023 5:46 PM Dictation workstation: [id number] Narrative Interpreted By: Corie Garza, STUDY: CT ABDOMEN PELVIS W IV CONTRAST; 03/16/2023 5:27 pm INDICATION: Signs/Symptoms:abdominal pain - with oral and IV contrast. COMPARISON: None.. ACCESSION NUMBER(S): [id number] ORDERING CLINICIAN: TIFFANIE MENDEZ TECHNIQUE: Oral contrast was not administered. 75 ml Omnipaque [address] of the Abdomen and Pelvis with intravenous contrast was performed. Axial, sagittal and coronal reformatted images were reviewed. All CT examinations are performed with 1 or more of the following dose reduction techniques: Automated exposure control, adjustment of mA and/or kv according to patient's size, or use of iterative reconstruction techniques. FINDINGS: Lower Chest: Ground-glass densities are noted in the bilateral lung bases dependently. Abdomen: Liver: Multiple well-circumscribed cystic lesions are noted involving both lobes of the liver, the largest on the right measuring approximately 2.0 cm Bile Ducts: Normal caliber. Gallbladder: Surgically absent Pancreas: Unremarkable. Spleen: Unremarkable. Adrenals: Normal. Kidneys: Normal. 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 Pelvis: No pelvic masses. Bladder: Unremarkable. Bowel: No bowel wall thickening or abnormal distention to suggest bowel obstruction. Mesenteric Lymph Nodes: No enlarged mesenteric lymph nodes. Peritoneum: Small amount of free fluid is noted adjacent to the spleen and within the pelvis. Vessels: Unremarkable Retroperitoneum: No retroperitoneal adenopathy. Abdominal Wall: Unremarkable. Bones: No acute bony abnormalities. EGD Table formatting from the original result was not included. Impression Edematous, granular and hemorrhagic mucosa in the body of the stomach Performed forceps biopsy in the body of the stomach to rule out H. pylori The upper third of the esophagus, middle third of the esophagus and lower third of the esophagus appeared normal. The jejunum appeared normal. One food bolus in the body of the stomach Small gastric pouch with some retained food.. Findings Edematous, granular and hemorrhagic mucosa in the body of the stomach; Performed single forceps biopsy in the body of the stomach to rule out H. pylori The upper third of the esophagus, middle third of the esophagus and lower third of the esophagus appeared normal. The jejunum appeared normal. One food bolus in the body of the stomach Recommendation Consider the use of low dose reglan (5 mg) before meals. Await biopsy for h pylori... OK for soft diet Indication Abdominal pain, Nausea and vomiting, unspecified vomiting type Staff Staff Role Eve Agotso MD Proceduralist Medications No administrations occurring from 1403 to 1433 on 03/19/23 Preprocedure A history and physical has been performed, and patient medication allergies have been reviewed. The patient's tolerance of previous anesthesia has been reviewed. The risks and benefits of the procedure and the sedation options and risks were discussed with the patient. All questions were answered and informed consent obtained. Details of the Procedure The patient underwent monitored anesthesia care, which was administered by an anesthesia professional. The patient's blood pressure, ECG, ETCO2, heart rate, level of consciousness, oxygen and respirations were monitored throughout the procedure. The scope was introduced through the mouth and advanced to the second part of the duodenum. Retroflexion was performed in the cardia. Prior to the procedure, the patient's H. Pylori status was negative. The patient experienced no blood loss. The procedure was not difficult. The patient tolerated the procedure well. There were no apparent adverse events. Events Procedure Events Event Event Time ENDO SCOPE IN TIME 03/19/2023 2:26 PM ENDO SCOPE OUT TIME 03/19/2023 2:32 PM Specimens ID Type Source Tests Collected by Time 1 : r/o h pylori Tissue STOMACH ANTRUM BIOPSY SURGICAL PATHOLOGY EXAM Michael Keyes, DEE 03/19/2023 1431 Pathology STOMACH ANTRUM, BIOPSY: 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 ASSESSMENT: (R11.2) Nausea and vomiting, unspecified vomiting type (primary encounter diagnosis) PLAN: I don't have a clear idea why she is feeling this way from her history or the testing I have available. I would like to get her more recent testing (EGD, CT scan) reports and images. Plans pending that testing and any thing that is found at that ER. Deacon Kat MD documented in this encounter [facility] 05-17-2023 Evaluation + Plan note Extrac darvin from: Title:ED Note Author:Tiffani Cunningham PA-C Date :05/17/23 1. Vomiting (R11.10: Vomitin g, unspecified) Orders: dicyclomine, 20 mg = 2 mL, Injection, IntraMuscular, Once, Stop date 05/17/23 15:16:00 EDT, STAT, Start date 05/17/23 15:16:00 EDT, 05/17/23 15:16:00 EDT diphenhydrAMINE, 25 mg = 0.5 mL, Injection, IV Push, Once, Stop date 05/17/23 14:54:00 EDT, STAT, Start date 05/17/23 14:54:00 EDT, 05/17/23 14:54:00 EDT metoclopramide, 10 mg = 2 mL, Injection, IV Push, Once, Stop date 05/17/23 14:55:00 EDT, STAT, Start date 05/17/23 14:55:00 EDT, 05/17/23 14:55:00 EDT Sodium Chloride 0.9% intravenous solution, 1,000 mL, IV, Stop date 05/17/23 15:08:00 EDT, Start date 05/17/23 15:08:00 EDT CBC w/ Auto Diff Comprehensive Metabolic Panel Drug Screen Urine eGFR Magnesium Level U Beta Hcg Qual UA with Cult Rflx Future Appointments Appointment Date:05/19/2023 10:40:00 AM Scheduled Provider:Jaquan Paula Location:[facility] Appointment Type: Hospital Follow Up w/TCM Appointment Date:07/13/2023 08:20:00 AM Scheduled Provider:OLGA GATICA PA-C Location:[facility] Appointment Type:URO Office Visit Appointment Date:08/04/2023 09:45:00 AM Scheduled Provider:Rajni Rouse MD Location:[facility] Appointment Type:URO Office Visit Diagnostic Tests Pending * Drug Screen Urine 05/17/23 Future Scheduled Tests Radiology* US Renal 06/10/22 [facility]:Result Comment: Electronically Signed By: Moncho Trejo DO\.br\Date and Time Signed: 05/14/23 12:06 [id number] Evaluation + Plan note Extracted from: Title:Discharge Note Author:Moncho Trejo DO Date:05/14/23 Discharge To, Anticipated II - Home with home health Prescriptions Advair Diskus 100 mcg-50 mcg inhalation powder, See Instructions, Self Directed Albuterol (Eqv-Ventolin HFA) 90 mcg/inh inhalation aerosol, 2 puff(s), Inhalation, q6hr Bentyl 10 mg Cap, 20 mg= 2 cap(s), Oral, QID, Not taking levothyroxine 75 mcg (0.075 mg) Tab, 75 mcg= 1 tab(s), Oral, Daily, 1 refills liothyronine 5 mcg Tab, 5 mcg, Oral, Daily, 3 refills oxyCODONE 5 mg Cap, 5 mg= 1 cap(s), Oral, q6hr, PRN Pantoprazole [address] Tab, 40 mg= 1 tab(s), Oral, Daily Phenergan 25 mg Supp, 25 mg= 1 supp, Rectal, q6hr, PRN, Self Directed promethazine 25 mg Tab, 25 mg= 1 tab(s), Oral, TID, Self Directed promethazine 25 mg Tab, 25 mg= 1 tab(s), Oral, q6hr, PRN, Self Directed sucralfate 1 g Tab, 1 gm= 1 tab(s), Oral, QIDACHS, PRN topiramate 100 mg Tab, See Instructions, 3 refills Zofran 4 mg Tab, 4 mg= 1 tab(s), Oral, q6hr, PRN, Self Directed Zofran ODT 4 mg Tab-Dis, 4 mg= 1 tab(s), Oral, q8hr, PRN, Self Directed Home busPIRone 10 mg Tab, 10 mg= 1 tab(s), Oral, BID escitalopram 20 mg Tab, 20 mg= 1 tab(s), Oral, Daily Linzess 290 mcg oral capsule, 290 mcg= 1 cap(s), Daily metoclopramide 10 mg Tab, 10 mg= 1 tab(s), Oral, QID mirtazapine 15 mg Tab, 15 mg= 1 tab(s), Oral, Once a day (at bedtime) With When Contact Information Cristhian REDDING, Jaquan Johnson, FAM, MED Additional Instructions: Follow up with surgeon Additional Instructions: Appointment has already been scheduled Cannabinoid Hyperemesis Syndrome Nausea and Vomiting, Adult, [id number] Extracted from: Title:Progress Note * Author:Rosalia Rivera MD Date:05/14/23 Impression and Plan This is a 33-year-old lady with past medical history of gastric sleeve surgery in July 2020, complicated by significant reflux switch to Tan-en-Y January 2022 at [facility], [facility] surgery February 2023 which reported helped her abdominal pain significantly. She presented to the hospital multiple times recently with significant intolerance to food even water. She reports if she drinks anything she will vomit right back. Also reported significant epigastric abdominal pain. She reports she has been having diarrhea associated with the pain, although she is on Linzess at home, 4-5 bowel movements a day, gradually improving in the past week EGD was done May 11, no anastomotic ulcer or obstruction, but significantly small gastric pouch likely secondary to gastric bypass on top of the sleeve surgery Recommendations Advance diet as tolerated, high-protein liquids like Ensure as much as tolerated multiple times a day, can sip on it slowly Continue antiemetic medications Okay for discharge, follow-up with general surgery at post MALS procedure as recommended, can also follow-up with GI there Extracted from: Title:APSO Note Author:Moncho Trejo DO e:05/14/2305/12-very mild increase in p .o. intake. Patient states little fluid still causes pain. 05/13 patient able to handle p.o. fluids and keep down. Will advance diet. will attempt to speak with surgeon. 1. Intractable nausea and vomiting (R11.2: Nausea with vomiting, unspecified) GI consulted and following Mildly improved Strict I's and O's IV fluids As needed Zofran and Phenergan Status post EGD 05/11 Bentyl, Carafate, PPI twice daily Ordered: Home Health Orders Sbsq Hospital Care/Day Moderate 35 Minutes [id number] 2. Intractable abdominal pain (R10.9: Unspecified abdominal pain) Treatment as above improved, pt was laying in bed working on laptop Ordered: Home Health Orders 3. Depression (F32.A: Depression, unspecified) buspirone 10mg bid escitalopram 20mg daily Ordered: Home Health Orders 4. Hypothyroid (E03.9: Hypothyroidism, unspecified) synthroid 5. Migraines (G43.909: Migraine, unspecified, not intractable, without status migrainosus) Topiramate 100 mg twice daily 6. Marijuana use (F12.90: Cannabis use, unspecified, uncomplicated) In ER patient had urine drug screen done that showed positive for cannabis. Denies use. 7. Leukopenia (D72.819: Decreased white blood cell count, unspecified) Afebrile No signs of infection hematology following suspect 2/[address] of abd/pelvic with contrast negative for acute findings Orders: busPIRone, 10 mg = 1 tab(s), Tab, Oral, BID, Routine, Start date 05/13/23 21:00:00 EDT, 05/13/23 17:22:00 EDT escitalopram, 20 mg = 2 tab(s), Tab, Oral, Daily, Routine, Start date 05/14/23 9:00:00 EDT, 05/13/23 17:22:00 EDT liothyronine, 5 mcg = 1 tab(s), Tab, Oral, Daily, Routine, Start date 05/14/23 9:00:00 EDT, 05/13/23 17:22:00 EDT Basic Metabolic Panel Basic Metabolic Panel CBC w/ Auto Diff CBC w/ Auto Diff Consult to Hematology/Oncology eGFR Path. Review Extracted from: Title:APSO Note Author:Moncho Trejo DO Eugenio e:05/13/23 1. Intractable nausea and vo miting (R11.2: Nausea with vomiting, unspecified) GI consulted and following Mildly improved Strict I's and O's IV fluids As needed Zofran and Phenergan Status post EGD 05/11 Bentyl, Carafate, PPI twice daily Ordered: [facility] Hospital Care/Day Moderate 35 Minutes [id number] 2. Intractable abdominal pain (R10.9: Unspecified abdominal pain) Treatment as above improved, pt was laying in bed working on laptop 3. Depression (F32.A: Depression, unspecified) buspirone 10mg bid escitalopram 20mg daily 4. Hypothyroid (E03.9: Hypothyroidism, unspecified) synthroid 5. Migraines (G43.909: Migraine, unspecified, not intractable, without status migrainosus) Topiramate 100 mg twice daily 6. Marijuana use (F12.90: Cannabis use, unspecified, uncomplicated) In ER patient had urine drug screen done that showed positive for cannabis. Denies use. 7. Leukopenia (D72.819: Decreased white blood cell count, unspecified) Afebrile No signs of infection Consult hematology Orders: acetaminophen, 650 mg = 2 tab(s), Tab, Oral, q6hr PRN Pain, Routine, Start date 05/12/23 12:38:00 EDT dicyclomine, 10 mg = 1 cap(s), Cap, Oral, QIDACHS PRN Nausea, Routine, Start date 05/12/23 12:55:00 EDT diphenhydrAMINE, 12.5 mg = 0.25 mL, Injection, IV Push, Once PRN Nausea, Routine, Start date 05/12/23 14:32:00 EDT, 05/12/23 14:32:00 EDT heparin, 5,000 unit(s) = 1 mL, Injection, SubCutaneous, BID for 30 day(s), Stop date 06/11/23 20:59:00 EDT, Routine, Start date 05/12/23 21:00:00 EDT hydrALAZINE, 10 mg = 0.5 mL, Injection, IV Push, q6hr PRN Other (see comment), Routine, Start date 05/12/23 12:38:00 EDT levothyroxine, 75 mcg = 1 tab(s), Tab, Oral, Daily, NOW, Start date 05/13/23 9:19:00 EDT metoclopramide, 5 mg = 1 mL, Injection, IV Push, Once PRN Nausea, Routine, Start date 05/12/23 14:33:00 EDT, 05/12/23 14:33:00 EDT morphine, 2 mg = 1 mL, Injection, IV Push, q4hr PRN Pain for 5 day(s), Stop date 05/17/23 12:37:00 EDT, Routine, Start date 05/12/23 12:38:00 EDT ondansetron, 4 mg = 2 mL, Injection, IV Push, q6hr PRN Nausea, Routine, Start date 05/12/23 12:38:00 EDT pantoprazole, 40 mg = 10 mL, Injection, IV Push, BID, Routine, Start date 05/12/23 21:00:00 EDT Patient Specific Meds, Linzess 290 mcg, Normal Patient Dose, Each, Oral, Daily, Routine, Start date 05/13/23 9:00:00 EDT Sodium Chloride 0.9% intravenous solution 1,000 mL, 1,000 mL, IV, 75 mL/hr, Routine, Start date 05/12/23 12:57:00 EDT, 13.3 hour(s), Total volume (mL): 1,000, 79.8 kg, 1.92, m2 sucralfate, 1 gram = 1 tab(s), Tab, Oral, QIDACHS PRN Nausea, Routine, Start date 05/12/23 12:56:00 EDT Basic Metabolic Panel Below the Knee Intermittent Pneumatic Compression Device CBC w/ Auto Diff CBC w/ Auto Diff Clear Liquid Diet Communication Order Comprehensive Metabolic Panel Consult to Gastroenterology Consult to Hematology/Oncology eGFR Extra SST Tube Intake and Output Path. Review Pulse Oximetry Referral to Resource Center Resuscitation Status - Full Vital Signs Weight Extracted from: Title:Progress Note * Author:Rosalia Rivera MD Date:05/13/23 Impression and Plan This is a 33-year-old lady with past medical history of gastric sleeve surgery in July 2020, complicated by significant reflux switch to Tan-en-Y January 2022 at [facility], MALS surgery February 2023 which reported helped her abdominal pain significantly. She presented to the hospital multiple times recently with significant intolerance to food even water. She reports if she drinks anything she will vomit right back. Also reported significant epigastric abdominal pain. She reports she has been having diarrhea associated with the pain, although she is on Linzess at home, 4-5 bowel movements a day, gradually improving in the past week EGD was done May 11, no anastomotic ulcer or obstruction, but significantly small gastric pouch likely secondary to gastric bypass on top of the sleeve surgery Recommendations Advance diet as tolerated Continue antiemetic medications Follow-up with general surgery at post MALS procedure as recommended Extracted from: Title:ANES Post-operative Note---General Author: Kuldip Arcos Jr, DO Date:05/12/23 Plan Transfer/Discharge: Transfer/Discharge Discharge when meets criteria ( To home ). Extracted from: Title:Inpatient Consultation -Floor Code* Author:Jon Rivera MD Date:05/12/23 Impression and Plan This is a 33-year-old lady with past medical history of gastric sleeve surgery in July 2020, complicated by significant reflux switch to Tan-en-Y January 2022 at [facility], MALS surgery February 2023 which reported helped her abdominal pain significantly. She presented to the hospital multiple times recently with significant intolerance to food even water. She reports if she drinks anything she will vomit right back. Also reported significant epigastric abdominal pain. She reports she has been having diarrhea associated with the pain, although she is on Linzess at home, 4-5 bowel movements a day, gradually improving in the past week Differential diagnosis includes post gastroenteritis nausea vomiting and diarrhea, postsurgical adhesions/related nausea vomiting She is already taking PPI twice a day open capsule Her labs are within normal limits Plan -Will proceed with EGD -Schedule Zofran 4 mg before meals -Can also try Phenergan or Reglan as needed Extracted from: Title:ANES Pre-operative Note 2022 Author:Kuldip Arcos Jr, DO Date:05/12/23 Plan [place] [employer] (ASA) physical status classification: Class II. Anesthetic Preoperative Plan: Anesthesia General. Extracted from: Title:Admission H & P Author:Moncho Trejo DO Date:05/12/23 Patient will be admitted und er observation status due to estimated length of stay less than 2 midnights. All images, labs, EKGs were reviewed DVT PPx heparin twice daily, PAS bilaterally Diet clear liquid diet CODE STATUS full code 1. Intractable nausea and vomiting (R11.2: Nausea with vomiting, unspecified) Consult GI Clear liquid diet Strict I's and O's IV fluids Zofran and for breakthrough Phenergan EGD tomorrow Bentyl, Carafate, PPI twice daily Ordered: Initial Hospital Care/Day Moderate [address] in Status 2. Intractable abdominal pain (R10.9: Unspecified abdominal pain) Treatment as above 3. Depression (F32.A: Depression, unspecified) buspirone 10mg bid escitalopram 20mg daily 4. Hypothyroid (E03.9: Hypothyroidism, unspecified) Synthroid 75 mcg daily 5. Migraines (G43.909: Migraine, unspecified, not intractable, without status migrainosus) Topiramate 100 mg twice daily 6. Marijuana use (F12.90: Cannabis use, unspecified, uncomplicated) In ER patient had urine drug screen done that showed positive for cannabis. Denies use. Orders: acetaminophen, 650 mg = 2 tab(s), Tab, Oral, q6hr PRN Pain, Routine, Start date 05/12/23 12:38:00 EDT, 05/12/23 12:38:00 EDT dicyclomine, 10 mg = 1 cap(s), Cap, Oral, QIDACHS PRN Nausea, Routine, Start date 05/12/23 12:55:00 EDT, 05/12/23 12:55:00 EDT heparin, 5,000 unit(s) = 1 mL, Injection, SubCutaneous, BID for 30 day(s), Stop date 06/11/23 20:59:00 EDT, Routine, Start date 05/12/23 21:00:00 EDT, 05/12/23 12:38:00 EDT hydrALAZINE, 10 mg = 0.5 mL, Injection, IV Push, q6hr PRN Other (see comment), Routine, Start date 05/12/23 12:38:00 EDT, 05/12/23 12:38:00 EDT morphine, 2 mg = 1 mL, Injection, IV Push, q4hr PRN Pain for 5 day(s), Stop date 05/17/23 12:37:00 EDT, Routine, Start date 05/12/23 12:38:00 EDT, 05/12/23 12:38:00 EDT ondansetron, 4 mg = 2 mL, Injection, IV Push, q6hr PRN Nausea, Routine, Start date 05/12/23 12:38:00 EDT, 05/12/23 12:38:00 EDT pantoprazole, 40 mg = 10 mL, Injection, IV Push, BID, Routine, Start date 05/12/23 21:00:00 EDT, 05/12/23 12:56:00 EDT Sodium Chloride 0.9% intravenous solution 1,000 mL, 1,000 mL, IV, 75 mL/hr, Routine, Start date 05/12/23 12:57:00 EDT, 13.3 hour(s), Total volume (mL): 1,000, 79.8 kg, 1.92, m2 sucralfate, 1 gram = 1 tab(s), Tab, Oral, QIDACHS PRN Nausea, Routine, Start date 05/12/23 12:56:00 EDT, 05/12/23 12:56:00 EDT Basic Metabolic Panel Below the Knee Intermittent Pneumatic Compression Device CBC w/ Auto Diff CBC w/ Auto Diff Clear Liquid Diet Comprehensive Metabolic Panel Consult to Gastroenterology Intake and Output NPO Diet Pulse Oximetry Resuscitation Status - Full Vital Signs Weight Extracted from: Title:ED Note Author:Rene QUIROZ, Mauricio Arroyo te:05/12/23 Intractable abdominal pain ( R10.9: Unspecified abdominal pain) Intractable nausea and vomiting, (R11.2: Nausea with vomiting, unspecified)Nausea and vomiting Orders: morphine, 4 mg = 1 mL, Injection, IV Push, Once, Stop date 05/12/23 10:03:00 EDT, STAT, Start date 05/12/23 10:03:00 EDT, 05/12/23 10:03:00 EDT ondansetron, 4 mg = 2 mL, Injection, IV Push, Once, Stop date 05/12/23 9:47:00 EDT, STAT, Start date 05/12/23 9:47:00 EDT, 05/12/23 9:47:00 EDT promethazine 25 mg + Sodium Chloride 0.9% intravenous solution 50 mL, Injection, IV Piggyback, Once, Stop date 05/12/23 10:30:00 EDT, STAT, Start date 05/12/23 10:30:00 EDT, 153 mL/hr, Infuse over 20 minute(s) Sodium Chloride 0.9% intravenous solution, 1,000 mL, Soln-IV, IV, Once, Stop date 05/12/23 9:47:00 EDT, STAT, Start date 05/12/23 9:47:00 EDT, Infuse over 61, minute(s) Basic Metabolic Panel Beta hCG Qual CBC w/ Auto Diff ED Physician consult Hospitalist for continued care eGFR Hepatic Function Panel Lipase Level PT & PTT Troponin 0 Hr. UA with Cult Rflx Future Appointments Appointment Date:05/19/2023 10:40:00 AM Scheduled Provider:Jaquan Paula Location:[facility] Appointment Type: Hospital Follow Up w/TCM Appointment Date:07/13/2023 08:20:00 AM Scheduled Provider:OLGA GATICA PA-C Location:[facility] Appointment Type:URO Office Visit Appointment Date:08/04/2023 09:45:00 AM Scheduled Provider:Rajni Rouse MD Location:[facility] Appointment Type:URO Office Visit Diagnostic Tests Pending * Copper Level 05/14/23 * HIV Screen 4th Generation wRfx 05/14/23 * Acute Hepatitis A B C Panel 05/14/23 Future Scheduled Tests Radiology* US Renal 06/10/22 [facility]03-29-2024 Hospital Discharge instructions Patient Education 05/14/2023 11:56:34 Cannabinoid Hyperemesis Syndrome Cannabinoid Hyperemesis Syndrome Cannabinoid hyperemesis syndrome (CHS) is a condition that causes repeated nausea, vomiting, and abdominal pain after long-term use of marijuana (cannabis). People with CHS typically use marijuana 3 5 times a day for many years before they have symptoms, although it is possible to develop CHS with far less daily use. Symptoms of CHS may be mild at first but can get worse and more frequent. In some cases, CHS may cause severe daily vomiting, which can lead to weight loss and dehydration. What are the causes? The exact cause of CHS is not known. Long-term use of marijuana may overstimulate certain proteins in the brain and digestive tract that react with chemicals in marijuana (cannabinoid receptors). This overstimulation may cause CHS. What are the signs or symptoms? Symptoms of CHS are often mild during the first few episodes, but they can get worse over time. Symptoms may include: Frequent nausea, especially early in the morning. Vomiting. This can become severe. Abdominal pain. Feeling very tired (lethargic). Headaches. CHS may go away and come back many times (recur). People may not have symptoms or may otherwise be healthy in between CHS episodes. Taking hot showers can relieve the symptoms of CHS, so feeling the need to take several hot showers throughout the day can be a sign of this condition. How is this diagnosed? CHS may be diagnosed based on: Your symptoms and medical history, including any drug use. A physical exam. You may have tests done to rule out other problems that could cause your symptoms. These tests may include: Blood tests. Urine tests. Imaging tests, such as an X-ray or a CT scan. How is this treated? Treatment for this condition involves stopping marijuana use. Treatment may include: A drug rehab program, if you have trouble stopping marijuana use. Medicines for nausea. These may be given at the hospital through an IV inserted into one of your veins, or they may be medicines that you take by mouth (orally). Certain creams that contain a substance called capsaicin. These may improve symptoms when applied to the abdomen. Hot showers to help relieve symptoms. In severe cases, you may need treatment at a hospital. You may be given IV fluids to prevent or treat dehydration as well as medicines to treat nausea, vomiting, and pain. Follow these instructions at home: During an episode of CHS Stay in bed and rest in a dark, quiet room. Take anti-nausea medicine as told by your health care provider. Try taking hot showers to relieve your symptoms. After an episode of CHS Drink small amounts of clear fluids. Slowly add more if you can keep the fluids down without vomiting. Once you are able to eat without vomiting, eat soft foods in small amounts every 3 4 hours. General instructions Do not use any products that contain marijuana.If you need help quitting, ask your health care provider for resources and treatment options. Drink enough fluid to keep your urine pale yellow. Avoid drinking fluids that have a lot of sugar or caffeine, such as coffee and soda. Take and apply ohei-gyo-nqtetxn and prescription medicines only as told by your health care provider. Ask your health care provider before starting any new medicines or treatments. Keep all follow-up visits. This includes any recommended programs for substance use disorders. Contact a health care provider if: Your symptoms get worse. You cannot drink fluids without vomiting or severe pain. You have pain and trouble swallowing after an episode. Get help right away if: You cannot stop vomiting. You have blood in your vomit or your vomit looks like coffee grounds. You have severe abdominal pain. You have stools that are bloody or black, or stools that look like tar. You have symptoms of dehydration, such as: ?Sunken eyes. ?Inability to make tears. ?Cracked lips or dry mouth. ?Decreased urine production. ?Weakness. ?Sleepiness. ?Dizziness, light-headedness, or fainting. These symptoms may be an emergency. Get help right away. Call 911. Do not wait to see if the symptoms will go away. Do not drive yourself to the hospital. Summary Cannabinoid hyperemesis syndrome (CHS) is a condition that causes repeated nausea, vomiting, and abdominal pain after long-term use of marijuana. Treatment for this condition involves stopping marijuana use. Hot showers and capsaicin creams may also help relieve symptoms. Your health care provider may prescribe medicines to help with nausea. Ask your health care provider before starting any medicines or other treatments. This information is not intended to replace advice given to you by your health care provider. Make sure you discuss any questions you have with your health care provider. Document Revised: 06/01/2022 Document Reviewed: 06/01/2022 Elsevier Patient Education 2022 [employer]. 05/14/2023 11:56:24 Nausea and Vomiting, Adult, Uovs-qk-Fyji Nausea and Vomiting, Adult Nausea is feeling that you have an upset stomach and that you are about to vomit. Vomiting is when food in your stomach forcefully comes out of your mouth. Vomiting can make you feel weak. If you vomit, or if you are not able to drink enough fluids, you may not have enough water in your body (get dehydrated). If you do not have enough water in your body, you may: Feel tired. Feel thirsty. Have a dry mouth. Have cracked lips. Pee (urinate) less often. Older adults and people with other diseases or a weak body defense system (immune system) are at higher risk for not having enough water in the body. If you feel like you may vomit or you vomit, it is important to follow instructions from your doctor about how to take care of yourself. Follow these instructions at home: Watch your symptoms for any changes. Tell your doctor about them. Eating and drinking Take an ORS (oral rehydration solution). This is a drink that is sold at pharmacies and stores. Drink clear fluids in small amounts as you are able, such as: ?Water. ?Ice chips. ?Fruit juice that has water added (diluted fruit juice). ?Low-calorie sports drinks. Eat bland, xmsw-ga-pwphey foods in small amounts as you are able, such as: ?Bananas. ?Applesauce. ?Rice. ?Low-fat (lean) meats. ?[place]. ?Crackers. Avoid drinking fluids that have a lot of sugar or caffeine in them. This includes energy drinks, sports drinks, and soda. Avoid alcohol. Avoid spicy or fatty foods. General instructions Take cxtw-moh-mrarpas and prescription medicines only as told by your doctor. Drink enough fluid to keep your pee (urine) pale yellow. Wash your hands often with soap and water for at least 20 seconds. If you cannot use soap and water, use hand coil winding machines set up mechanic. Make sure that everyone in your home washes their hands well and often. Rest at home until you feel better. Watch your condition for any changes. Take slow and deep breaths when you feel like you may vomit. Keep all follow-up visits. Contact a doctor if: Your symptoms get worse. You have new symptoms. You have a fever. You cannot drink fluids without vomiting. You feel like you may vomit for more than 2 days. You feel light-headed or dizzy. You have a headache. You have muscle cramps. You have a rash. You have pain while peeing. Get help right away if: You have pain in your chest, neck, arm, or jaw. You feel very weak or you faint. You vomit again and again. You have vomit that is bright red or looks like black coffee grounds. You have bloody or black poop (stools) or poop that looks like tar. You have a very bad headache, a stiff neck, or both. You have very bad pain, cramping, or bloating in your belly (abdomen). You have trouble breathing. You are breathing very quickly. Your heart is beating very quickly. Your skin feels cold and clammy. You feel confused. You have signs of losing too much water in your body, such as: ?Dark pee, very little pee, or no pee. ?Cracked lips. ?Dry mouth. ?Sunken eyes. ?Sleepiness. ?Weakness. These symptoms may be an emergency. Get help right away. Call 911. Do not wait to see if the symptoms will go away. Do not drive yourself to the hospital. Summary Nausea is feeling that you have an upset stomach and that you are about to vomit. Vomiting is when food in your stomach comes out of your mouth. Follow instructions from your doctor about eating and drinking. Take nmqz-fnz-jdqiupe and prescription medicines only as told by your doctor. Contact your doctor if your symptoms get worse or you have new symptoms. Keep all follow-up visits. This information is not intended to replace advice given to you by your health care provider. Make sure you discuss any questions you have with your health care provider. Document Revised: 08/08/2021 Document Reviewed: 08/08/2021 [employer] Patient Education 2022 [employer] Follow Up Care 05/12/2023 09:23:09 With:Patient has [facility] Home Health in place Address:Unknown When: Unknown With:Jaquan Paula, [facility], [facility] Address: [address] [place] [address] Business (1) When: Unknown With:Follow up with surgeon Address: When: Unknown Comments:Appointment has already been scheduled [facility]03-27-2024 [facility] HospitalComment on above:Result Comment: Electronically Signed By: Moncho Trejo DO.br\Date and Time Signed: 05/12/23 12:59 [id number] Hospital Discharge instructions Patient Education 05/11/2023 16:46:23 Abdominal Pain, Adult, Jrds-ya-Qdtu Abdominal Pain, Adult Many things can cause belly (abdominal) pain. Most times, belly pain is not dangerous. Many cases of belly pain can be watched and treated at home. Sometimes, though, belly pain is serious. Your doctor will try to find the cause of your belly pain. Follow these instructions at home: Medicines Take wiry-wkf-esfpjxj and prescription medicines only as told by your doctor. Do not take medicines that help you poop (laxatives) unless told by your doctor. General instructions Watch your belly pain for any changes. Drink enough fluid to keep your pee (urine) pale yellow. Keep all follow-up visits as told by your doctor. This is important. Contact a doctor if: Your belly pain changes or gets worse. You are not hungry, or you lose weight without trying. You are having trouble pooping (constipated) or have watery poop (diarrhea) for more than 2 3 days. You have pain when you pee or poop. Your belly pain wakes you up at night. Your pain gets worse with meals, after eating, or with certain foods. You are vomiting and cannot keep anything down. You have a fever. You have blood in your pee. Get help right away if: Your pain does not go away as soon as your doctor says it should. You cannot stop vomiting. Your pain is only in areas of your belly, such as the right side or the left lower part of the belly. You have bloody or black poop, or poop that looks like tar. You have very bad pain, cramping, or bloating in your belly. You have signs of not having enough fluid or water in your body (dehydration), such as: ?Dark pee, very little pee, or no pee. ?Cracked lips. ?Dry mouth. ?Sunken eyes. ?Sleepiness. ?Weakness. You have trouble breathing or chest pain. Summary Many cases of belly pain can be watched and treated at home. Watch your belly pain for any changes. Take gbfq-vlf-rdaclbf and prescription medicines only as told by your doctor. Contact a doctor if your belly pain changes or gets worse. Get help right away if you have very bad pain, cramping, or bloating in your belly. This information is not intended to replace advice given to you by your health care provider. Make sure you discuss any questions you have with your health care provider. Document Revised: 06/12/2019 Document Reviewed: 06/12/2019 [employer] Patient Education 2022 [employer]. Follow Up Care 05/11/2023 11:48:15 With:Miguel JOHNSON, APRYL Bean, [facility] Address: [address] [place] [address], [address] [address] [phone] When:2 to 4 days Comments:Call today to schedule your follow upReturn to ED if symptoms worsen [facility]03-26-2024 Evaluation + Plan noteExtracted from: Title:ED Note Author:Tiffani Cunningham PA-C Date :05/11/23 1. Chronic abdominal pain (R 10.9: Unspecified abdominal pain) Other chronic pain (G89.29: Other chronic pain) Orders: dicyclomine, 20 mg = 2 mL, Injection, IntraMuscular, Once, Stop date 05/11/23 14:31:00 EDT, STAT, Start date 05/11/23 14:31:00 EDT, 05/11/23 14:31:00 EDT diphenhydrAMINE, 25 mg = 0.5 mL, Injection, IntraMuscular, Once, Stop date 05/11/23 14:30:00 EDT, STAT, Start date 05/11/23 14:30:00 EDT, 05/11/23 14:30:00 EDT metoclopramide, 10 mg = 2 mL, Injection, IntraMuscular, Once, Stop date 05/11/23 14:30:00 EDT, STAT, Start date 05/11/23 14:30:00 EDT, 05/11/23 14:30:00 EDT ondansetron, 4 mg = 1 tab(s), Tab-Dis, Oral, Once, Stop date 05/11/23 12:07:00 EDT, STAT, Start date 05/11/23 12:07:00 EDT, 05/11/23 12:07:00 EDT CBC w/ Auto Diff Comprehensive Metabolic Panel CT Abdomen/Pelvis w/o Contrast Drug Screen Urine eGFR Extra Blue Tube Extra SST Tube Lactic Acid Lipase Level Magnesium Level Saline Lock Insert U Beta Hcg Qual UA with Cult Rflx Future Appointments Appointment Date:07/13/2023 08:20:00 AM Scheduled Provider:OLGA GATICA PA-C Location:[facility] Appointment Type:URO Office Visit Appointment Date:08/04/2023 09:45:00 AM Scheduled Provider:Nasim JOHNSON, Rajni Ballesteros Location:[facility] Appointment Type:URO Office Visit Future Scheduled Tests Radiology* US Renal 06/10/22 [facility]03-25-2024 Miscellaneous Notes* Telephone Encounter - Serena Neff - 05/10/2023 2:51 PM EDT Patient scheduled with Dr. Kat on 05/11. Serena Neff HEALTH AND WELLNESS COORDINATOR History Department Chair for Dr. Kat * Telephone Encounter - Serena Neff - 05/10/2023 11:16 AM EDT Returned patient's phone call. S/P multiple previous abdominal surgeries following bariatric surgery Chief Complaint: Severe abdominal pain, unable to tolerate oral intake Spoke with patient over the phone. States she has been to the ED multiple times within the last 4 days with 9/10 sharp abdominal pain which starts at the umbilicus and wraps around the left side of her abdomen to her back. States she gets spasms when ingesting food or fluids and begins vomiting within 5-10 minutes after oral intake. Patient states she has been taking protonix, but that she has been having reflux symptoms for 1-2 months. The abdominal pain and vomiting has been worsening for about 2 weeks. Requesting to be seen by Dr. Kat. Christopher Neff HEALTH AND WELLNESS COORDINATOR History Department Chair for Dr. Kat * Telephone Encounter - Kerri Dorita - 05/10/2023 10:44 AM EDT Patients calling concerned about [place]. She has been in the ER 2 times in the last 4 days. She was told to speak to DR who originally put her on TPN to discuss getting back on it. CB# [phone] [facility] Hospital Discharge instructions Patient Education 05/09/2023 16:21:11 Abdominal Pain, Adult Abdominal Pain, Adult Pain [...] Follow these instructions at home: Medicines Take mbqt-xzi-mlbzwch and prescription medicines only as told by [...] Watch your condition for any changes. Take hxbq-frn-uluihud and prescription medicines only as told by [...] provider. Document Revised: 03/22/2020 Document Reviewed: 06/12/2019 [employer] Patient Education 2022 [employer]. Follow Up Care 05/09/2023 11:38:04 With:Earnest Oakes Address: [facility] Alhaji Lozano, [facility] [address] [address]- [phone] Business (1) When:05/12/2023 15:51:27 With:Jon Rivera Address: [facility] Alhaji Lozano, [facility] [address] [phone] [phone] Business (1) When:05/12/2023 15:51:00 With:Jaquan Morrow Address: [address] [place] [phone] Business (1) When:05/12/2023 15:50:53 [facility]03-24-2024 Evaluation + Plan noteExtracted from: Title:ED Note Author:Lonnie Rios PA-C te:05/09/23 Chronic abdominal pain (R10. 9: Unspecified abdominal pain) Other chronic pain (G89.29: Other chronic pain) Orders: diphenhydrAMINE, 25 mg = 0.5 mL, Injection, IV Push, Once, Stop date 05/09/23 13:52:00 EDT, STAT, Start date 05/09/23 13:52:00 EDT, 05/09/23 13:52:00 EDT HYDROmorphone, 1 mg = 1 mL, Injection, IV Push, Once, Stop date 05/09/23 15:10:00 EDT, STAT, Start date 05/09/23 15:10:00 EDT, 05/09/23 15:10:00 EDT morphine, 4 mg = 1 mL, Injection, IV Push, Once, Stop date 05/09/23 12:37:00 EDT, STAT, Start date 05/09/23 12:37:00 EDT, 05/09/23 12:37:00 EDT morphine, 4 mg = 1 mL, Injection, IV Push, Once, Stop date 05/09/23 13:52:00 EDT, STAT, Start date 05/09/23 13:52:00 EDT, 05/09/23 13:52:00 EDT pantoprazole, 40 mg = 10 mL, Injection, IV Push, Once, Stop date 05/09/23 15:27:00 EDT, STAT, Start date 05/09/23 15:27:00 EDT, 05/09/23 15:27:00 EDT promethazine 25 mg + Sodium Chloride 0.9% intravenous solution 50 mL, Injection, IV Piggyback, Once, Stop date 05/09/23 12:37:00 EDT, STAT, Start date 05/09/23 12:37:00 EDT, 153 mL/hr, Infuse over 20 minute(s) Sodium Chloride 0.9% intravenous solution, 1,000 mL, Soln-IV, IV, Once, Stop date 05/09/23 11:57:00 EDT, STAT, Start date 05/09/23 11:57:00 EDT, Infuse over 61, minute(s) Basic Metabolic Panel Beta hCG Qual CBC w/ Auto Diff eGFR Hepatic Function Panel Lipase Level UA with Cult Rflx Future Appointments Appointment Date:07/13/2023 08:20:00 AM Scheduled Provider:OLGA GATICA PA-C Location:[facility] Appointment Type:URO Office Visit Appointment Date:08/04/2023 09:45:00 AM Scheduled Provider:Rajni Rouse MD Location:[facility] Appointment Type:URO Office Visit Future Scheduled Tests Radiology* US Renal 06/10/22 [facility]03-22-2024 Miscellaneous Notes* Telephone Encounter - Yvette Morgan - 05/07/2023 11:07 AM EDT Procedure canceled * Telephone Encounter - Santa Hart RN - 05/07/2023 10:47 AM EDT Patient is keeping 07/20/2023 Upper endoscopy appointment and wishes to cancel 05/14/2023 EGD appointment. Scheduling notified. [facility] Hospital Discharge instructions Patient Education 05/06/2023 21:19:23 Abdominal Pain, Adult Abdominal Pain, Adult Pain [...] Follow these instructions at home: Medicines Take btpr-phn-rkymotp and prescription medicines only as told by [...] Watch your condition for any changes. Take ptqj-zew-ouyzuwc and prescription medicines only as told by [...] provider. Document Revised: 03/22/2020 Document Reviewed: 06/12/2019 [employer] Patient Education 2022 [employer]. Follow Up Care 05/06/2023 15:41:48 With:Follow-up with your surgeon at soon as possible, call the office tomorrow to schedule an appointment. Return to the ER with any new or worsening symptoms. Address:Unknown When: Unknown With:Jaquan Morrow Address:Unknown When:Within 3 Day(s) [facility]03[facility]13-[facility] History of Present illness Narrative* Kasie Avalos MD - 04/28/2023 10:00 AM EDT DEPARTMENT OF GASTROENTEROLOGY - FOLLOW UP VISIT HISTORY OF PRESENT ILLNESS Abbey Garcia is a 33 year old female who presents today for follow up of reflux and constipation. Last seen 07/22/22. She has a PMH significant for anxiety and depression, hypothyroidism, PCOS, s/p cholecystectomy in 2013 and recent appendectomy, s/p SG with conversion to RYGB in Jan 2022 for heartburn and N/V. Prior to surgery, she was on TF at one point. N/V all resolved. When I last saw her weaddressed constipation and started Linzess 145mcg daily. She did well on it but now dealing with urgency and inability to expel stool. 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 Today, she would like to address the following: - Reflux - Urgency and inability to let all the stool out. She has not taken Linzess for the past 2 weeks Linzess works well for her but she still feels backed up. Bowel urgency started a month post MALS surgery. She eats and then has to go within an hour or two. Some other days it is more BMs. With urgency, stool is long and thin and is unable to let it out. Having urinary incontinence and a lot of pressure in there pelvic floor. Gets bad regurgitation and heartburn constantly. Last time I saw her it was much better. TEST RESULTS SINCE LAST VISIT 03/19/23 WBC 4.4 - 11.3 x10*3/uL 4.3 Low nRBC 0.0 - 0.0 /100 WBCs 0.0 RBC 4.00 - 5.20 x10*6/uL 3.96 Low Hemoglobin 12.0 - 16.0 g/dL 11.9 Low Hematocrit 36.0 - 46.0 % 33.7 Low MCV 80 - 100 fL 85 MCH 26.0 - 34.0 pg 30.1 MCHC 32.0 - 36.0 g/dL 35.3 RDW 11.5 - 14.5 % 12.1 Platelets 150 - 450 x10*3/uL 285 Glucose 65 - 99 mg/dL 98 Sodium 133 - 145 mmol/L 140 Potassium 3.4 - 5.1 mmol/L 3.7 Chloride 97 - 107 mmol/L 106 Bicarbonate 24 - 31 mmol/L 21 Low Urea Nitrogen 8 - 25 mg/dL 5 Low Creatinine 0.40 - 1.60 mg/dL 0.60 eGFR >60 mL/min/1.73m*2 >90 Comment: Calculations of estimated GFR are performed using the 2020 CKD-EPI Study Refit equation without the race variable for the IDMS-Traceable creatinine methods. https://jasn.asnjournals.org/content//ASN.2901838098 Calcium 8.5 - 10.4 mg/dL 8.7 Albumin 3.5 - 5.0 g/dL 3.2 Low Alkaline Phosphatase 35 - 125 U/L 68 Total Protein 5.9 - 7.9 g/dL 5.7 Low AST 5 - 40 U/L 27 Bilirubin, Total 0.1 - 1.2 mg/dL 0.4 ALT 5 - 40 U/L 14 Anion Gap <=19 mmol/L 13 EGD 03/19/23 Impression Edematous, granular and hemorrhagic mucosa in the body of the stomach Performed forceps biopsy in the body of the stomach to rule out H. pylori The upper third of the esophagus, middle third of the esophagus and lower third of the esophagus appeared normal. The jejunum appeared normal. One food bolus in the body of the stomach Small gastric pouch with some retained food.. Findings Edematous, granular and hemorrhagic mucosa in the body of the stomach; Performed single forceps biopsy in the body of the stomach to rule out H. pylori The upper third of the esophagus, middle third of the esophagus and lower third of the esophagus appeared normal. The jejunum appeared normal. One food bolus in the body of the stomach FINAL DIAGNOSIS [facility] STOMACH ANTRUM, BIOPSY: 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 ERCP 11/11/22 Findings: The major papilla was normal. The [...] tree was swept and nothing was found. EGD 10/27/22 Findings: The examined jejunum was normal. 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 The gastrojejunal anastomosis was characterized by healthy appearing mucosa. This was traversed. The yrvcl-yw-kvzpatp limb was characterized by healthy appearing mucosa. [...] jejunum. Otherwise, no findings to explain symptoms EGD 06/23/22 Findings: The examined esophagus was normal. 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 The gastrojejunal anastomosis was characterized by healthy appearing mucosa. This was traversed. The lwcfo-zt-nxubujh limb was characterized by healthy appearing mucosa. The jejunojejunal anastomosis was characterized by healthy appearing mucosa. The examined jejunum was normal. Impression: - Normal esophagus. - Tan-en-Y gastrojejunostomy with gastrojejunal anastomosis characterized by healthy appearing mucosa. No ulceration or stenosis. - Normal examined jejunum. - No specimens collected. 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 Contrast is seen passing easily from the distal esophagus into the gastric remnant and Tan loop. No evidence for extravasation is noted. No abnormally dilated loops of small bowel are noted. Contrast reaches large bowel within 150 minutes of administration of contrast. CT ABD/PEL 03/16/23 FINDINGS: Lower Chest: Ground-glass densities are noted in the bilateral lung bases dependently. Abdomen: Liver: Multiple well-circumscribed cystic lesions are noted involving both lobes of the liver, the largest on the right measuring approximately 2.0 cm Bile Ducts: Normal caliber. Gallbladder: Surgically absent Pancreas: Unremarkable. Spleen: Unremarkable. Adrenals: Normal. Kidneys: Normal. 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 Pelvis: No pelvic masses. Bladder: Unremarkable. Bowel: No bowel wall thickening or abnormal distention to suggest bowel obstruction. Mesenteric Lymph Nodes: No enlarged mesenteric lymph nodes. Peritoneum: Small amount of free fluid is noted adjacent to the spleen and within the pelvis. Vessels: Unremarkable Retroperitoneum: No retroperitoneal adenopathy. Abdominal Wall: Unremarkable. Bones: No acute bony abnormalities. CT ABD/PEL 12/14/22 FINDINGS: No acute or concerning findings in [...] acute osseous findings or destructive bone lesions. CT ABD/PEL 12/06/22 ABDOMEN: Checkout Supervisor (topogram) images: No additional findings. Images of the aorta demonstrate normal caliber vessel with no significant focal stenosis or aneurysm formation. Juxtarenal Abdominal Aorta: Normal size Infrarenal Abdominal Aorta: Normal size Celiac artery demonstrates no significant focal stenosis. Superior mesenteric artery demonstrates no significant focal stenosis. Inferior mesenteric artery demonstrates no significant focal stenosis. There are two right renal arteries. Right renal artery demonstrates no significant focal stenosis. There is a single renal vein which is patent. There is a single left renal artery. Left renal artery demonstrates no significant focal stenosis. There is a single renal vein which is patent. RIGHT LEG: Right common iliac artery is patent with no significant stenosis. Right external iliac artery is patent with no significant stenosis. Right internal iliac artery is patent with no significant stenosis. Right common femoral artery is patent with no significant stenosis. Visualized right profunda femoris artery is patent with no significant stenosis. Visualized right superficial femoral artery is patent with no significant stenosis. LEFT LEG: Left common iliac artery is patent with no significant stenosis. Left external iliac artery is patent with no significant stenosis. Left internal iliac artery is patent with no significant stenosis. Left common femoral artery is patent with no significant stenosis. Visualized left profunda femoris artery is patent with no significant stenosis. Visualized left superficial femoral artery is patent with no significant stenosis. NONVASCULAR FINDINGS: Lower thorax: Unremarkable. Liver: Hepatic steatosis. Scattered hepatic cysts. Stable additional subcentimeter hypoattenuating lesions, which are too small to characterize. Biliary: Stable borderline dilated CBD in the setting of prior cholecystectomy. Spleen: No mass. No splenomegaly. Pancreas: No mass or duct dilation. Adrenals: No mass. Kidneys: No mass, calculus or hydronephrosis. Retroperitoneum: Unremarkable GI tract: Status post Tan-en-Y gastric bypass. No bowel dilation or wall thickening. Status post appendectomy. Lymph nodes: Prominent, though nonenlarged mesenteric lymph nodes. Mesentery/Peritoneum: No ascites or mass. Pelvis: No mass, ascites or fluid collection. Status post hysterectomy. Bones/Soft Tissues: No acute osseous abnormality. Midline ventral surgical changes. Right lower quadrant injection granuloma. IMPRESSION: No acute abdominal or pelvic abnormality. Specifically, no findings to suggest mesenteric ischemia. 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 Ultrasound images are not available for comparison. Hepatic steatosis. CT ABD/PEL 11/27/22 Impression 1. Status post gastric bypass procedure. Patent [...] the ductal system. 5. No obstructive uropathy. FINDINGS: Clinical informed: Previous gastric bypass procedure [...] contrast enhancement for the liver. Multifocal hypodense/no enhancing/hypoenhancing lesions are present in the liver, they [...] peritoneal adenopathy. Lower lung bases appear unremarkable. US MESENTERIC ARTERY 11/26/22 FINDINGS -------- Celiac origin PSV: 308 cm/s. [...] stenosis. No evidence of hemodynamically significant stenosis. Current Outpatient Medications Medication Sig Dispense Refill escitalopram oxalate (LEXAPRO) 20 mg tablet take 1 tablet daily 90 tablet 1 linaclotide (LINZESS) 145 mcg capsule Take 1 capsule by mouth daily at 6 am. 60 capsule 0 gabapentin (NEURONTIN) 100 mg capsule take 1 tab PO BID x 7 days, then increase to 2 tabs PO BID x 7 days, then increase to 2 tabs PO TID if tolerated. 180 capsule 5 promethazine (PHENERGAN) 25 mg tablet Take 1 tablet by mouth every 6 hours as needed. 45 tablet 0 albuterol HFA (PROVENTIL HFA, VENTOLIN HFA) 90 mcg/actuation inhaler Inhale 2 Puffs as instructed every 4 hours as needed for wheezing/shortness of breath. fluticasone-salmeterol (ADVAIR DISKUS) 100-50 mcg/dose inhaler Inhale 1 Puff as instructed every 12hours. pantoprazole (PROTONIX) 40 mg grps Take 40 mg by mouth daily before breakfast. metoclopramide HCl (REGLAN) 5 mg tablet Take 5 mg by mouth before meals and at bedtime. mirtazapine (REMERON) 15 mg tablet Take 1 tablet by mouth daily at bedtime. 90 tablet 1 busPIRone (BUSPAR) 10 mg tablet Take 1 tablet by mouth twice daily. 180 tablet 1 acetaminophen (TYLENOL) 500 mg tablet Take 2 tablets by mouth every 6 hours as needed for pain or fever (specify). docusate sodium (COLACE) 100 mg capsule Take 1 capsule by mouth three times daily. decrease the dose or stop for diarrhea 90 capsule 0 polyethylene glycol 3350 (MIRALAX) 17 gram/dose powder Take 17 g by mouth twice daily. reduced the dose or stop if you get diarrhea and restart after 48 hours to maintain 'at least' once a day bowel movement. Dissolve dose in 4 - 8 ounces of liquid and take as directed. 507 g 1 topiramate (TOPAMAX) 100 mg tablet Take 100 [...] Contraindication-Medical Surgical S/p RYGB PAST MEDICAL HISTORY See hpi PHYSICAL EXAMINATION BP 106/75 Pulse 80 Temp (Src) 96.6 (Temporal) Ht 5' 6 (1.68m) Wt 175 lb (79.4kg) SpO2 100% LMP 08/19/2020 BMI 28.26 kg/(m^2). General Appearance: alert, oriented x 3, pleasant and in no acute distress Eyes: Negative for significant chage in vision, and significant vision problems Abdomen: not distended, normal bowel sounds, soft and depressible, no guarding or rebound, no palpable mass, no organomegaly Rectal exam: deferred Extremities: no cyanosis or edema Skin: no jaundice, no spider angiomas, no palmar erythema Neuro: alert, oriented x 3, pleasant and in no acute distress Assessment IMPRESSION Abbey Garcia is a 33 year old female who presents today for follow up of reflux and constipation. Last seen 07/22/22. She has a PMH significant for anxiety and depression, hypothyroidism, PCOS, s/p cholecystectomy in 2013 and recent appendectomy, s/p SG with conversion to RYGB in Jan 2022 for heartburn and N/V. Prior to surgery, she was on TF at one point. N/V all resolved. When I last saw her weaddressed constipation and started Linzess 145mcg daily. She did well on it but now dealing with urgency and inability to expel stool. 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 PLAN (K21.9) Gastroesophageal reflux disease, unspecified whether esophagitis present (primary encounterdiagnosis) Discussed unclear if true GERD or not. Previous pH study OFF meds was abnormal. Will proceed with Huerta ON meds (K59.00) Constipation, unspecified constipation type Encouraged to proceed with ARM. Increase Linzess to 290mcg daily Plan is to follow up in three months. I spent a total of 30 minutes on the date of the service which included preparing to see the patient, [id number] patient care, completing clinical documentation, obtaining and/or reviewing separately obtained history, performing a medically appropriate examination, counseling and educating the pat ient/family/caregiver, and ordering medications, tests, or procedures. Kasie Avalos MD April 22, 2023 2:06 PM documented in [facility] History of Present illness Narrative* Sherry Magaña MD - 04/07/2023 3:30 PM EST Patient has been struggling since discharge. She has difficulty taking in fluids because of her recent gastric bypass with small pouch restricting her intake and also the gastritis that was found during her hospitalization. She is on Protonix. She reports that her preoperative mid abdominal pain isimproved but she now has left-sided abdominal pain and this restricts her oral intake particularly liquid intake and this resulted in several visits to the emergency room where she was found to be dehydrated. She did not have a pancreatitis but her lipase was elevated due to the dehydration. She ishaving a good day today and is able to take an small months of food and water. Her surgical wound is intact. I asked that she connect with her bariatric surgeon at [facility]. I will follow-up with her in 2 weeks by telephone. [facility] [place] Work Phone: 1(809) 706-165902-21-2024 History of Present illness Narrative* Deacon Kat MD - 04/07/2023 1:48 PM EST VIRTUAL VISIT PROGRESS NOTE This is a virtual visit using [employer] Zoom Video Visit. It required patient- provider interaction for the medical decision making as documented below. I have communicated my name and active licensure. The patient's identity and physical location wereverified at the time of this visit. Either the patient or their legal kiosk sales representative has been informed of the risks and benefits of -- and alternatives to -- treatment through a remote evaluation andconsents to proceed with the evaluation remotely. Abbey Garcia is a 33 year old female seen for follow-up visit for long-term abdominal issues after prior bariatric surgery. She recently underwent a median arcuate ligament release surgery with Dr. Magaña. She has had a slow recovery from that but overall is feeling much improved. She had a recent EGD through the system which I was able to obtain and review through [facility] Everywhere and I demonstrated a little bit of food in her pouch but no stenosis or ulcer was noted.. VIDEO EXAM: (if completed, performed via video enabled technology) GENERAL: alert and appropriate, in no distress, well-hydrated, well nourished, and happy, smiling, interactive ASSESSMENT: (Z98.84) Bariatric surgery status (primary encounter diagnosis) (E60) Dietary zinc deficiency (E55.9) Vitamin D deficiency PLAN: She previously had zinc and vitamin D deficiency which she has not been actively completing of either 1. She has labs that are pending for this and were ordered by my nurse practitioner Breanna Stern. I have asked for her to fulfill those labs and we will plan on replacing them as they be replaced.She should follow-up in October of this year with Breanna for 1 year laboratory evaluation. She ca n always follow-up with me sooner as needed for abdominal issues that she has. Medical Decision Making: Problems: Low: Stable chronic illness Data: Unique test result(s) reviewed: 3+ Risk: Minimal: Minimal risk from testing/treatment Medical Decision Making Level: 3 - Low Deacon Kat MD documented in this encounterC[facility] Hospital Discharge instructions Patient Education 04/02/2023 17:02:34 Nonspecific Chest Pain, Adult Nonspecific Chest Pain, [...] Follow these instructions at home: Medicines Take qohr-xbw-[id number] and prescription medicines only as told by [...] provider. Document Revised: 04/17/2021 Document Reviewed: 04/17/2021 [employer] Patient Education 2022 [employer] 04/02/2023 17:02:34 Abdominal Pain, Adult Abdominal Pain, Adult Pain [...] Follow these instructions at home: Medicines Take ieja-mgy-[id number] and prescription medicines only as told by [...] Watch your condition for any changes. Take qtbk-gdv-[id number] and prescription medicines only as told by [...] provider. Document Revised: 03/22/2020 Document Reviewed: 06/12/2019 [employer] Patient Education 2022 [employer]. Follow Up Care 04/02/2023 10:53:50 With:Jon Rivera Address: [address], [address] [phone] Business (1) When:04/05/2023 16:23:56 Comments:Make sure to follow-up with your primary doctor and your surgeon. Follow-up with Dr. Rivera for the GI. Return to the emergency room if your pain gets worse or any new symptoms. With:Jaquan Morrow Address:Unknown When:Within 3 Day(s) [facility]02-16-2024 Evaluation + Plan noteExtracted from: Title:ED Note Author:Jose Ramon Martinez, Ashutosh Arroyo te:04/02/23 1. Chest pain (R07.9: Chest pain, unspecified) 2. Abdominal pain (R10.9: Unspecified abdominal pain) Orders: dicyclomine, 20 mg = 2 cap(s), Oral, QID, # 20 cap(s), Refills(s) 0, Pharmacy: [facility]/pharmacy #[id number], 167, cm, 04/02/23 11:01:00 EST, Height/Length Dosing, 82.7, kg, 04/02/23 11:01:00 EST, Weight Dosing lorazepam, 1 mg = 1 tab(s), Tab, Oral, Once, Stop date 04/02/23 11:16:00 EST, STAT, Start date 04/02/23 11:16:00 EST, 04/02/23 11:16:00 EST morphine, 6 mg = 3 mL, Injection, IV Push, Once, Stop date 04/02/23 15:34:00 EST, STAT, Start date 04/02/23 15:34:00 EST, 04/02/23 15:34:00 EST morphine, 4 mg = 2 mL, Injection, IV Push, Once, Stop date 04/02/23 12:29:00 EST, STAT, Start date 04/02/23 12:29:00 EST, 04/02/23 12:29:00 EST ondansetron, 4 mg = 2 mL, Injection, IV Push, Once, Stop date 04/02/23 12:29:00 EST, STAT, Start date 04/02/23 12:29:00 EST, 04/02/23 12:29:00 EST promethazine, 25 mg = 1 tab(s), Oral, q6hr, PRN as needed for nausea/vomiting, # 16 tab(s), Refills(s) 0, [id number], cm, 04/02/23 11:01:00 EST, Height/Length Dosing, 82.7, kg, 04/02/23 11:01:00 EST, Weight Dosing promethazine 25 mg + Sodium Chloride 0.9% intravenous solution 50 mL, Injection, IV Piggyback, Once, Stop date 04/02/23 15:34:00 EST, STAT, Start date 04/02/23 15:34:00 EST, 153 mL/hr, Infuse over 20 minute(s) Sodium Chloride 0.9% intravenous solution 1,000 mL, 1,000 mL, IV, 999 mL/hr, STAT, Start date 04/02/23 12:16:00 EST, 1 hour(s), Total volume (mL): 1,000, 82.7 kg, 1.96, m2 sucralfate, 1 gm = 10 mL, Oral, QIDACHS, X 14 day(s), # 560 mL, Refills(s) 0, [id number], 167, cm, 04/02/23 11:01:00 EST, Height/Length Dosing, 82.7, kg, 04/02/23 11:01:00 EST, Weight Dosing B-Type Natriuretic Peptide Basic Metabolic Panel CBC w/ Auto Diff CTA Abdomen and Pelvis CTA Chest D-Dimer ED Cardiac Monitoring eGFR Extra Lav Tube Extra Lav Tube Free T4 Hepatic Function Panel Lipase Level Magnesium Level Orthostatic Vitals Signs Oxygen Saturation Oxygen Therapy PT & PTT Saline Lock Insert Troponin 0 Hr. Troponin 3 Hr. Troponin 6 Hr. Troponin 9 Hr. TSH With T4fr Reflex XR Chest Single View Future Appointments Appointment Date:08/04/2023 09:45:00 AM Scheduled Provider:Rajni Rouse MD Location:[facility] Appointment Type:URO Office Visit Future Scheduled Tests Radiology* US Renal 06/10/22 [facility]02-03-2024 Nurse Note* Stacie Blanco RN - 03/20/2023 4:41 PM EST Patient discharged home to care of self and . Patient transported to front entrance via wheelchair. No injuries, bleeding or distress noted. [facility] Nurse Note* Stacie Blanco RN - 03/20/2023 4:41 PM EST Patient discharged home to care of self and . Patient transported to front entrance via wheelchair. No injuries, bleeding or distress noted. * Stacie Blanco RN - 03/20/2023 4:01 PM EST Provided/explained discharge instructions and summary. Provided opportunity for questions and discussion. No complaints or concerns communicated. * Andie Lugo RN - 03/18/2023 4:47 PM EST Pt resting quietly in bed, no distres noted * Andie Lugo RN - 03/18/2023 3:17 PM EST Pt given IS and instructed how to use, pt verbalized understanding * Andie Lugo RN - 03/18/2023 2:50 PM EST Ronnie foster, beth into see pt * Andie Lugo RN - 03/18/2023 7:27 AM EST Assumed care of pt, pt resting quietly in bed, ng to liws , will monitor * Cathy Madera RN - 03/17/2023 6:05 PM EST NG tube re inserted per order. Patient tolerated well. No complications. This nurse requested orderfor xray for placement of NG tube. Order received. Waiting on computer field technician to verify placement per order. Will continue to monitor patient to ensure patient safety. * Cathy Madera RN - 03/17/2023 3:10 PM EST This nurse notified Rosa YUN and that patient returned to unit from xray reportsbeing left down at xray by herself throwing up and throwing up NG tube. Patient does not have NG tube upon arriving back to unit. I gave patient zofran before she left unit for xray. Dr. Wong at bedside. This nurse was given orders per to re insert NG tube and supervisor wet end to low suction. Will re attempt with patients consent. * Cathy Madera RN - 03/17/2023 12:06 PM EST Patient transported to Xray for placement of NG. Patient off unit. * Cathy Madera RN - 03/17/2023 11:44 AM EST This nurse notified all source intelligence technician that patient had NG tube placed and needed Xray for placement verification. This nurse messaged Rosa YNU to notify her that NG tube was placed and needed separate order for NG tube placement per all source intelligence technician. Order received. Will continue to monitor patient to ensure patient safety. * Cathy Madera RN - 03/17/2023 10:58 AM EST Patient is ordered NPO this nurse received verbal orders with readback to administer oral medication per Rosa YUN at bedside. Will continue to monitor patient to ensure patient safety. * Cathy Madera RN - 03/17/2023 10:44 AM EST This nurse called Lizz YUN for order clairification for Valium 5 MG IV. This nurse notified Lizz YUN that patient received Valium 5 MG PO at 613 per MAR and nurse to nurse. This nurse was given telephone orders with read back to administer Valium 5 MG IV once. Will continue to monitor patient to ensure patient safety. * Cathy Madera RN - 03/17/2023 9:15 AM EST Patient arrived to unit with and father at bedside. Patient is new admission in 437B. Patient alert and oriented x 4. Patient assessed at this time. Patient has diminished lung sounds upon auscultation. Patient is on room air. Patient is on TELE. Patient has sutures down midline of abdomen.Patient report MALS surgery on February,. Sutures are intact, clean, dry and intact. No redness, or drainage noted. Patient denies any nausea, vomiting or diarrhea at this time. Patient denies any pain at this time. Patient does not appear to be in any distress. Fall precautions reviewed and implemented. Bed brakes locked, bed in lowest position, call light within reach, bed alarm activa darvin. Will continue to monitor patient to ensure patient safety. documented in this [facility] Work Phone: 1(655) 918-894002-03-2024 Nurse Note* Stacie Blanco RN - 03/20/2023 4:01 PM EST Provided/explained discharge instructions and summary. Provided opportunity for questions and discussion. No complaints or concerns communicated. [facility] Work Phone: 1(741) 763-213402-03-2024 History of Present illness Narrative* Eric Tyler RN - 03/20/2023 3:35 PM EST Patient is medically ready for discharge. Per previous resident care coordinator, plan for home with home health care. Message to provider that external home care referral is needed. UPDATE 1549: Discharging provider indicates no continued skilled needs for home care. Per bedside nurse May, patient is in agreement that she no longer needs home health care services. Referral to [facility] updated and closed. Patient will discharge no with no reported skilled needs. * Lizz Brunson APRN-APPLICATION SECURITY ARCHITECT - 03/20/2023 11:40 AM EST Abbey Garcia is a 32 y.o. female on day 4 of admission presenting with Abdominal pain. Subjective Seen and examined. Status post EGD yesterday, findings suggesting gastroparesis. NG tube has been removed. Reports intermittent nausea, 1 episode of vomiting last night after EGD, possibly related toanesthesia. Denies chest pain, shortness of breath. No acute distress. Is asking when she can go home. Objective Last Recorded Vitals BP 131/74 (BP Location: Right arm, Patient Position: Lying) Pulse 62 Temp 36.4 C (97.5 F) (Oral) Resp 18 Wt 92.7 kg (204 lb 5.9 oz) SpO2 98% Intake/Output last 3 Shifts: No intake or output data in the 24 hours ending 03/20/23 1140 Admission Weight Weight: 92.7 kg (204 lb 5.9 oz) (03/16/23 1347) Daily Weight 03/16/23 : 92.7 kg (204 lb 5.9 oz) Image Results EGD Table formatting from the original result was not included. Impression Edematous, granular and hemorrhagic mucosa in the body of the stomach Performed forceps biopsy in the body of the stomach to rule out H. pylori The upper third of the esophagus, middle third of the esophagus and lower third of the esophagus appeared normal. The jejunum appeared normal. One food bolus in the body of the stomach Small gastric pouch with some retained food.. Findings Edematous, granular and hemorrhagic mucosa in the body of the stomach; Performed single forceps biopsy in the body of the stomach to rule out H. pylori The upper third of the esophagus, middle third of the esophagus and lower third of the esophagus appeared normal. The jejunum appeared normal. One food bolus in the body of the stomach Recommendation Consider the use of low dose reglan (5 mg) before meals. Await biopsy for h pylori... OK for soft diet Indication Abdominal pain, Nausea and vomiting, unspecified vomiting type Staff Staff Role Eve Agosto MD Proceduralist Medications No administrations occurring from 1403 to 1433 on 03/19/23 Preprocedure A history and physical has been performed, and patient medication allergies have been reviewed. The patient's tolerance of previous anesthesia has been reviewed. The risks and benefits of the procedure and the sedation options and risks were discussed with the patient. All questions were answered and informed consent obtained. Details of the Procedure The patient underwent monitored anesthesia care, which was administered by an anesthesia professional. The patient's blood pressure, ECG, ETCO2, heart rate, level of consciousness, oxygen and respirations were monitored throughout the procedure. The scope was introduced through the mouth and advanced to the second part of the duodenum. Retroflexion was performed in the cardia. Prior to the procedure, the patient's H. Pylori status was negative. The patient experienced no blood loss. The procedure was not difficult. The patient tolerated the procedure well. There were no apparent adverse events. Events Procedure Events Event Event Time ENDO SCOPE IN TIME 03/19/2023 2:26 PM ENDO SCOPE OUT TIME 03/19/2023 2:32 PM Specimens ID Type Source Tests Collected by Time 1 : r/o h pylori Tissue STOMACH ANTRUM BIOPSY SURGICAL PATHOLOGY EXAM Michael Keyes RN 03/19/2023 1431 Procedure Location [address] [id number] Referring Provider Generic Provider [place] No address on file Procedure Provider No name on file Physical Exam Vitals and nursing note reviewed. Constitutional: Appearance: Normal appearance. HENT: Head: Normocephalic and atraumatic. Nose: Comments: NG tube to low intermittent wall suction Mouth/Throat: Mouth: Mucous membranes are moist. Eyes: Extraocular Movements: Extraocular movements intact. Pupils: Pupils are equal, round, and reactive to light. Cardiovascular: Rate and Rhythm: Normal rate. Pulses: Normal pulses. Pulmonary: Effort: Pulmonary effort is normal. Abdominal: General: Bowel sounds are normal. Palpations: Abdomen is soft. Musculoskeletal: General: Normal range of motion. Cervical back: Normal range of motion and neck supple. Skin: Capillary Refill: Capillary refill takes less than 2 seconds. Neurological: Mental Status: She is alert and oriented to person, place, and time. Psychiatric: Mood and Affect: Mood normal. Relevant Results Assessment/Plan Principal Problem: Abdominal pain Postop abdominal pain, nausea, vomiting As managed by primary service-vascular N.p.o., NG tube placed 03/17/2023, removed 03/19/2023 Status post EGD, findings suggesting gastroparesis, patient started on Reglan Antiemetics, as needed pain medicine Hypothyroidism Continue home Synthroid, Cytomel Anxiety, depression Continue home Valium, BuSpar, Lexapro, Remeron, Atarax Asthma Continue home as needed nebulizer treatments History of headaches Hold home Topamax for now Monitor headaches Anemia Continue home iron supplementation GERD Continue home Pepcid 03/19/2023: No acute events overnight. Scheduled for EGD today. 03/20/2023: Patient states that she vomited 1 time yesterday after EGD, patient states that she is frequently nauseous after anesthesia. Overall clinically improving. JAMA Smith * JAMA Lynn - 03/20/2023 11:17 AM EST Abbye Garcia is a 32 y.o. female on day 4 of admission presenting with Abdominal pain. Subjective Patient seen and examined. She underwent EGD yesterday with Dr. Agosto. Dr. Tato Darnell was also present during the procedure. Patient's prior surgery site appears normal. There was some retained food in the stomach suggesting possible gastroparesis. Patient was initiated on Reglan. Objective Physical Exam General: Pt is alert and oriented x 3. Pleasant, conversive HEENT: Head is atraumatic, normocephalic. NG tube has been removed. Abdomen: Soft, nondistended, nontender. Bowel sounds x4 quadrants. Midline abdominal incisio is well-approximated with Steri-Strips in place. Pulse exam: Palpable brachial and radial pulses bilaterall. femoral, popliteal, pedal pulses are palpable bilaterally. Extremities: No significant edema noted. Extremities are warm to the touch and normal in color. No open wounds or sores. Neuro: Moves all extremities spontaneously. No focal deficits. Psych: Appropriate affect. Answers questions appropriately. Last Recorded Vitals Blood pressure 131/74, pulse 62, temperature 36.4 C (97.5 F), temperature source Oral, resp. rate 18, height 1.676 m (5' 6 ), weight 92.7 kg (204 lb 5.9 oz), SpO2 98 %. Intake/Output last 3 Shifts: I/O last 3 completed shifts: In: 83.3 (0.9 mL/kg) [I.V.:83.3 (0.9 mL/kg)] Out: - (0 mL/kg) Weight: 92.7 kg Relevant Results Scheduled medications busPIRone, 10 mg, oral, BID cyanocobalamin, 50 mcg, oral, Daily escitalopram, 20 mg, oral, Daily famotidine, 20 mg, oral, BID ferrous sulfate (325 mg ferrous sulfate), 1 tablet, oral, Daily with breakfast heparin (porcine), 5,000 Units, subcutaneous, q8h TANIA levothyroxine, 100 mcg, oral, Daily lidocaine, 1 Application, Topical, Once liothyronine, 5 mcg, oral, Daily metoclopramide, 5 mg, oral, TID AC mirtazapine, 15 mg, oral, Nightly pantoprazole, 40 mg, intravenous, BID Continuous medications PRN medications PRN medications: acetaminophen OR acetaminophen OR acetaminophen, albuterol, diazePAM, hydrOXYzine HCL, metoclopramide OR metoclopramide, morphine, ondansetron, oxyCODONE-acetaminophen, polyethylene glycol Results for orders placed or performed during the hospital encounter of 03/16/23 (from the past 96 hour(s)) Sars-CoV-2 and Influenza A/B PCR Result Value Ref Range Flu A Result Not Detected Not Detected Flu B Result Not Detected Not Detected Coronavirus 2018, PCR Not Detected Not Detected CBC and Auto Differential Result Value Ref Range WBC 5.0 4.4 - 11.3 x10*3/uL nRBC 0.0 0.0 - 0.0 /100 WBCs RBC 3.54 (L) 4.00 - 5.20 x10*6/uL Hemoglobin 10.8 (L) 12.0 - 16.0 g/dL Hematocrit 33.4 (L) 36.0 - 46.0 % MCV 94 80 - 100 fL MCH 30.5 26.0 - 34.0 pg MCHC 32.3 32.0 - 36.0 g/dL RDW 12.3 11.5 - 14.5 % Platelets 273 150 - 450 x10*3/uL Neutrophils % 48.6 40.0 - 80.0 % Immature Granulocytes %, Automated 0.2 0.0 - 0.9 % Lymphocytes % 33.7 13.0 - 44.0 % Monocytes % 6.2 2.0 - 10.0 % Eosinophils % 9.9 0.0 - 6.0 % Basophils % 1.4 0.0 - 2.0 % Neutrophils Absolute 2.45 1.20 - 7.70 x10*3/uL Immature Granulocytes Absolute, Automated 0.01 0.00 - 0.70 x10*3/uL Lymphocytes Absolute 1.70 1.20 - 4.80 x10*3/uL Monocytes Absolute 0.31 0.10 - 1.00 x10*3/uL Eosinophils Absolute 0.50 0.00 - 0.70 x10*3/uL Basophils Absolute 0.07 0.00 - 0.10 x10*3/uL Comprehensive metabolic panel Result Value Ref Range Glucose 82 65 - 99 mg/dL Sodium 141 133 - 145 mmol/L Potassium 3.7 3.4 - 5.1 mmol/L Chloride 110 (H) 97 - 107 mmol/L Bicarbonate 21 (L) 24 - 31 mmol/L Urea Nitrogen 8 8 - 25 mg/dL Creatinine 0.80 0.40 - 1.60 mg/dL eGFR >90 >60 mL/min/1.73m*2 Calcium 7.9 (L) 8.5 - 10.4 mg/dL Albumin 3.0 (L) 3.5 - 5.0 g/dL Alkaline Phosphatase 58 35 - 125 U/L Total Protein 5.5 (L) 5.9 - 7.9 g/dL AST 32 5 - 40 U/L Bilirubin, Total <0.2 0.1 - 1.2 mg/dL ALT 13 5 - 40 U/L Anion Gap 10 <=19 mmol/L CBC Result Value Ref Range WBC 5.0 4.4 - 11.3 x10*3/uL nRBC 0.0 0.0 - 0.0 /100 WBCs RBC 3.81 (L) 4.00 - 5.20 x10*6/uL Hemoglobin 11.5 (L) 12.0 - 16.0 g/dL Hematocrit 34.9 (L) 36.0 - 46.0 % MCV 92 80 - 100 fL MCH 30.2 26.0 - 34.0 pg MCHC 33.0 32.0 - 36.0 g/dL RDW 12.5 11.5 - 14.5 % Platelets 268 150 - 450 x10*3/uL Comprehensive metabolic panel Result Value Ref Range Glucose 122 (H) 65 - 99 mg/dL Sodium 143 133 - 145 mmol/L Potassium 4.3 3.4 - 5.1 mmol/L Chloride 112 (H) 97 - 107 mmol/L Bicarbonate 21 (L) 24 - 31 mmol/L Urea Nitrogen 5 (L) 8 - 25 mg/dL Creatinine 0.80 0.40 - 1.60 mg/dL eGFR >90 >60 mL/min/1.73m*2 Calcium 8.1 (L) 8.5 - 10.4 mg/dL Albumin 3.3 (L) 3.5 - 5.0 g/dL Alkaline Phosphatase 61 35 - 125 U/L Total Protein 5.7 (L) 5.9 - 7.9 g/dL AST 31 5 - 40 U/L Bilirubin, Total 0.2 0.1 - 1.2 mg/dL ALT 17 5 - 40 U/L Anion Gap 10 <=19 mmol/L CBC Result Value Ref Range WBC 4.0 (L) 4.4 - 11.3 x10*3/uL nRBC 0.0 0.0 - 0.0 /100 WBCs RBC 4.03 4.00 - 5.20 x10*6/uL Hemoglobin 12.1 12.0 - 16.0 g/dL Hematocrit 37.2 36.0 - 46.0 % MCV 92 80 - 100 fL MCH 30.0 26.0 - 34.0 pg MCHC 32.5 32.0 - 36.0 g/dL RDW 12.5 11.5 - 14.5 % Platelets 266 150 - 450 x10*3/uL Comprehensive metabolic panel Result Value Ref Range Glucose 79 65 - 99 mg/dL Sodium 137 133 - 145 mmol/L Potassium 3.8 3.4 - 5.1 mmol/L Chloride 108 (H) 97 - 107 mmol/L Bicarbonate 19 (L) 24 - 31 mmol/L Urea Nitrogen 5 (L) 8 - 25 mg/dL Creatinine 0.80 0.40 - 1.60 mg/dL eGFR >90 >60 mL/min/1.73m*2 Calcium 8.4 (L) 8.5 - 10.4 mg/dL Albumin 3.0 (L) 3.5 - 5.0 g/dL Alkaline Phosphatase 66 35 - 125 U/L Total Protein 5.7 (L) 5.9 - 7.9 g/dL AST 33 5 - 40 U/L Bilirubin, Total 0.3 0.1 - 1.2 mg/dL ALT 17 5 - 40 U/L Anion Gap 10 <=19 mmol/L CBC Result Value Ref Range WBC 4.3 (L) 4.4 - 11.3 x10*3/uL nRBC 0.0 0.0 - 0.0 /100 WBCs RBC 3.96 (L) 4.00 - 5.20 x10*6/uL Hemoglobin 11.9 (L) 12.0 - 16.0 g/dL Hematocrit 33.7 (L) 36.0 - 46.0 % MCV 85 80 - 100 fL MCH 30.1 26.0 - 34.0 pg MCHC 35.3 32.0 - 36.0 g/dL RDW 12.1 11.5 - 14.5 % Platelets 285 150 - 450 x10*3/uL Comprehensive metabolic panel Result Value Ref Range Glucose 98 65 - 99 mg/dL Sodium 140 133 - 145 mmol/L Potassium 3.7 3.4 - 5.1 mmol/L Chloride 106 97 - 107 mmol/L Bicarbonate 21 (L) 24 - 31 mmol/L Urea Nitrogen 5 (L) 8 - 25 mg/dL Creatinine 0.60 0.40 - 1.60 mg/dL eGFR >90 >60 mL/min/1.73m*2 Calcium 8.7 8.5 - 10.4 mg/dL Albumin 3.2 (L) 3.5 - 5.0 g/dL Alkaline Phosphatase 68 35 - 125 U/L Total Protein 5.7 (L) 5.9 - 7.9 g/dL AST 27 5 - 40 U/L Bilirubin, Total 0.4 0.1 - 1.2 mg/dL ALT 14 5 - 40 U/L Anion Gap 13 <=19 mmol/L Assessment/Plan -Abdominal pain/nausea, resolving -Median arcuate ligament syndrome, status post ligament release on 03/05/2023 -Obesity: status post laparoscopic sleeve gastrectomy in August [address] Ku and Tan-en-Y gastric bypass 01/29/[address] Kat 1. Abdominal pain/nausea: CT abdomen pelvis with IV contrast reviewed by Dr. Magaña. -EGD report reviewed, appreciate Dr. Agosto and Dr. Tato Darnell input. Component of gastroparesis, Reglan started. - NG tube discontinued post EGD - Advance diet as tolerated - Potential discharge later this afternoon or possibly 03/21/2023. Would like to see how she tolerates increase diet - Zofran IV for nausea - Percocet p.o. for pain - Appreciate GI/Bariatric surggery input -Hospitalist on consult for medical comanagement Asthma: Continue home medications Hypothyroidism: On Synthroid and Cytomel Anemia: Continue home iron supplementation GERD: Continue Pepcid I spent 35 minutes in the professional and overall care of this patient. JAMA Lynn * JAMA Petersen - 03/20/2023 9:17 AM EST Abbey Garcia is a 32 y.o. female on day 4 of admission presenting with Abdominal pain. Subjective Patient denies abdominal pain. She is inquiring about discharge today and diet Objective Physical Exam HENT: Head: Normocephalic. Right Ear: Tympanic membrane normal. Nose: Nose normal. Mouth/Throat: Mouth: Mucous membranes are moist. Eyes: Pupils: Pupils are equal, round, and reactive to light. Cardiovascular: Rate and Rhythm: Normal rate. Pulmonary: Effort: Pulmonary effort is normal. Abdominal: Palpations: Abdomen is soft. Tenderness: There is abdominal tenderness. Musculoskeletal: General: Normal range of motion. Cervical back: Normal range of motion. Skin: General: Skin is warm. Neurological: General: No focal deficit present. Mental Status: She is alert. Psychiatric: Mood and Affect: Mood normal. Last Recorded Vitals Blood pressure 131/74, pulse 62, temperature 36.4 C (97.5 F), temperature source Oral, resp. rate 18, height 1.676 m (5' 6 ), weight 92.7 kg (204 lb 5.9 oz), SpO2 98 %. Intake/Output last 3 Shifts: I/O last 3 completed shifts: In: 83.3 (0.9 mL/kg) [I.V.:83.3 (0.9 mL/kg)] Out: - (0 mL/kg) Weight: 92.7 kg Relevant Results No results found for this or any previous visit (from the past 24 hour(s)). XR chest 1 view Result Date: 03/17/2023 Interpreted By: Nya Ahmadi, STUDY: XR CHEST 1 VIEW 03/17/2023 7:09 pm INDICATION: Signs/Symptoms:S/p NG placement COMPARISON: 03/17/2023 done at 2:05 p.m. ACCESSION NUMBER(S): [id number] ORDERING CLINICIAN: TIFFANIE MENDEZ TECHNIQUE: AP erect view of the chest FINDINGS: The nasogastric tube has not ch anged in placement with the tip seen within the proximal thoracic esophagus. Heart and mediastinum are normally visualized. Lungs are clear. Distal tip of nasogastric tube in proximal thoracic esophagus just above the aortic arch. Signed by: Nya Ahmadi 03/17/2023 8:19 PM Dictation workstation: [id number] FL upper GI w double contrast w small bowel follow through Result Date: 03/17/2023 Interpreted By: Corie Garza, STUDY: FL UPPER GI W DOUBLE CONTRAST W SMALL BOWEL FOLLOW THROUGH; 03/17/2023 4:40 pm INDICATION: Signs/Symptoms:abdominal pain. COMPARISON: None. ACCESSION NUMBER(S): [id number] ORDERING CLINICIAN: TIFFANIE MENDEZ TECHNIQUE: Multiple fluoroscopic spot images were obtained during a single contrast upper GI with KUB. Total fluoroscopy time: 1 minute 32 seconds Radiation exposure (Reference Air Kerma): 99.36 mGy Images: 2 spot images 7 series and 2 delayed AP viewsof the abdomen FINDINGS: Checkout Supervisor images demonstrate postsurgical changes from previous Tan-en-Y gastric bypass. Contrast is seen passing easily from the distal esophagus into the gastric remnant and Tan loop. No evidence for extravasation is noted. No abnormally dilated loops of small bowel are noted. Contrast reaches large bowel within 150 minutes of administration of contrast. Postsurgical changes from gastric bypass. No evidence for obstruction.. MACRO: none Signed by: Corie Garza 03/17/2023 5:00 PM Dictation workstation: [id number] XR chest 1 view Result Date: 03/17/2023 Interpreted By: Corie Garza, STUDY: XR CHEST 1 VIEW; 03/17/2023 12:41 pm INDICATION: Signs/Symptoms:Status post NG tube placement. COMPARISON: None available ACCESSION NUMBER(S): [id number] ORDERING CLINICIAN: TIFFANIE MENDEZ FINDINGS: RESULT: Nasogastric tube is noted with tip in the upper esophagus at the level of the clavicular heads. The cardiac silhouette is within normal limits for size.Mediastinal contours are unremarkable. The lungs demonstrate no infiltrate or area of atelectasis. The osseous structures are unremarkable. Nasogastric tube tip is noted at the level of the upper esophagus at the level of the clavicular heads. The nasogastric tube removed itself from the patient soon after this exam. Signed by: Corie Garza 03/17/2023 4:19 PM Dictation workstation: [id number] CT abdomen pelvis w IV contrast Result Date: 03/16/2023 Interpreted By: Corie Garza, STUDY: CT ABDOMEN PELVIS W IV CONTRAST; 03/16/2023 5:27 pm INDICATION: Signs/Symptoms:abdominal pain - with oral and IV contrast. COMPARISON: None.. ACCESSION NUMBER(S): [id number] ORDERING CLINICIAN: TIFFANIE MENDEZ TECHNIQUE: Oral contrast was not administered. 75 ml Omnipaque [address] of the Abdomen and Pelvis with intravenous contrast was performed. Axial, sagittal and coronal reformatted images were reviewed. All CT examinations areperformed with 1 or more of the following dose reduction techniques: Automated exposure control, adjustment of mA and/or kv according to patient's size, or use of iterative reconstruction techniques.FINDINGS: Lower Chest: Ground-glass densities are noted in the bilateral lung bases dependently. Abdomen: Liver: Multiple well-circumscribed cystic lesions are noted involving both lobes of the liver, the largest on the right measuring approximately 2.0 cm Bile Ducts: Normal caliber. Gallbladder: Nance rgically absent Pancreas: Unremarkable. Spleen: Unremarkable. Adrenals: Normal. Kidneys: Normal. 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 Pelvis: No pelvic masses. Bladder: Unremarkable. Bowel: No bowel wall thickening or abnormal distention to suggest bowel obstruction. Mesenteric Lymph Nodes: No enlarged mesenteric lymph nodes. Peritoneum: Small amount of free fluid is noted adjacent to the spleen and within the pelvis. Vessels: Unremarkable Retroperitoneum: No retroperitoneal adenopathy. Abdominal Wall: Unremarkable. Bones: No acute bony abnormalities. Patchy ground-glass densities in the bilateral lung bases may represent atelectasis. Multiple cystic lesions scattered throughout both lobes of the liver. Postsurgical changes of Tan-en-Y gastric bypass. MACRO: none Signed by: Corie Garza 03/16/2023 5:46 PM Dictation workstation: [id number] XR chest 1 view Result Date: 03/06/2023 Interpreted By: Sara Zarate, STUDY: XR CHEST 1 VIEW; 03/06/2023 7:32 am INDICATION: Signs/Symptoms:post op COMPARISON: None ACCESSION NUMBER(S): [id number] ORDERING CLINICIAN: JASON FOSTER TECHNIQUE: Frontal and lateral chest radiographs. FINDINGS: Enteric tube is seen with the tip overlying the expected location of the stomach. Right upper extremity PICC is seen with the tip overlying the distal SVC. The cardiomediastinal silhouette is unremarkable. The lungs are clear. No pleural effusion is identified. The osseous structures are intact. Appliance positioning as noted above. No consolidation. Signed by: Sara Zarate 03/06/2023 1:48 PM Dictation workstation: [id number] XR chest 1 view Result Date: 03/05/2023 Interpreted By: Baldomero Hendrickson, STUDY: XR CHEST 1 VIEW; 03/05/2023 3:11 pm INDICATION: CLINICAL INFORMATION: Signs/Symptoms:NG tube placement confirmation. COMPARISON: 03/05/2019 at 745 hours ACCESSION NUMBER(S): [id number] ORDERING CLINICIAN: DESMOND TIRADO TECHNIQUE: Portable chest one view. FINDINGS: The cardiac size is indeterminate in view of the AP projection. Nasogastric tube extends into the left upper quadrant. Right-sided PICC line is present with the catheter tip overlying the SVC right atrial junction. No infiltrates or effusions are identified. 1. Status post NG tube insertion with the tube extending into the left upper quadrant. 2. Stable appearance of the PICC line. 3. No infiltrates are identified. MACRO: none Signed by: Baldomero Hendrickson 03/05/2023 3:31 PM Dictation workstation: [id number] XR chest 1 view Result Date: 03/05/2023 Interpreted By: Nya Ahmadi, STUDY: XR CHEST 1 VIEW 03/05/2023 7:51 am INDICATION: Signs/Symptoms:confirm line placement COMPARISON: None available. ACCESSION NUMBER(S): [id number] ORDERING CLINICIAN: SERENA GEORGE TECHNIQUE: AP erect view of the chest FINDINGS: Right arm PICC line terminates in the SVC. There is no pneumothorax. The heart, mediastinum, and lungs are normally visualized. Right arm PICC line terminating in SVC without pneumothorax. No acute cardiopulmonary disease. Signed by: Nya Ahmadi 03/05/2023 7:54 AM Dictation workstation: [id number] Assessment/Plan Principal Problem: Abdominal pain NV, Epigastric Pain (LFTs are normal. CT a/p normal) -EGD 2/[address] Agosto with gastric erythema; however, prior surgery site/bypass was normal in appearance. Recommend PPI daily. Appreciate Dr Rosendo Nguyen input -There was also some retained food within stomach suggestive of gastroparesis. Recommend Reglan 5mgbefore meals at home. Monitor for side effects of TD -Advance diet as tolerated -No barriers to DC from GI standpoint. Please call us with questions or concerns JAMA Petersen * JAMA Lynn - 03/19/2023 3:58 PM EST Abbey Garcia is a 32 y.o. female on day 3 of admission presenting with Abdominal pain. Subjective Patient seen and examined. She is going for EGD later today with Dr. Agosto. Dr. Tato Darnell to observe EGD and make recommendations. He reports some episodic nausea but overall her initial symptoms have decreased. She reports that the post prandial band like pain that was associated with her MALS is resolved Objective Physical Exam General: Pt is alert and oriented x 3. Pleasant, conversive HEENT: Head is atraumatic, normocephalic. Has NG tube Abdomen: Soft, nondistended, nontender. Bowel sounds x4 quadrants. Midline abdominal incisio is well-approximated with Steri-Strips in place. Pulse exam: Palpable brachial and radial pulses bilaterall. femoral, popliteal, pedal pulses are palpable bilaterally. Extremities: No significant edema noted. Extremities are warm to the touch and normal in color. No open wounds or sores. Neuro: Moves all extremities spontaneously. No focal deficits. Psych: Appropriate affect. Answers questions appropriately. Last Recorded Vitals Blood pressure 119/64, pulse 66, temperature 36.2 C (97.2 F), temperature source Temporal, resp. rate 13, height 1.676 m (5' 6 ), weight 92.7 kg (204 lb 5.9 oz), SpO2 99 %. Intake/Output last 3 Shifts: I/O last 3 completed shifts: In: 1203.7 (13 mL/kg) [P.O.:100; I.V.:1093.7 (11.8 mL/kg); IV Piggyback:10] Out: 0 (0 mL/kg) Weight: 92.7 kg Relevant Results Scheduled medications busPIRone, 10 mg, oral, BID cyanocobalamin, 50 mcg, oral, Daily escitalopram, 20 mg, oral, Daily famotidine, 20 mg, oral, BID ferrous sulfate (325 mg ferrous sulfate), 1 tablet, oral, Daily with breakfast heparin (porcine), 5,000 Units, subcutaneous, q8h TANIA levothyroxine, 100 mcg, oral, Daily lidocaine, 1 Application, Topical, Once liothyronine, 5 mcg, oral, Daily mirtazapine, 15 mg, oral, Nightly pantoprazole, 40 mg, intravenous, BID Continuous medications dextrose 5 % and lactated Ringer's, 100 mL/hr, Last Rate: 100 mL/hr (03/19/23 0735) PRN medications PRN medications: acetaminophen OR acetaminophen OR acetaminophen, albuterol, diazePAM, hydrOXYzine HCL, metoclopramide OR metoclopramide, morphine, ondansetron, oxyCODONE-acetaminophen, polyethylene glycol Results for orders placed or performed during the hospital encounter of 03/16/23 (from the past 24 hour(s)) CBC Result Value Ref Range WBC 4.3 (L) 4.4 - 11.3 x10*3/uL nRBC 0.0 0.0 - 0.0 /100 WBCs RBC 3.96 (L) 4.00 - 5.20 x10*6/uL Hemoglobin 11.9 (L) 12.0 - 16.0 g/dL Hematocrit 33.7 (L) 36.0 - 46.0 % MCV 85 80 - 100 fL MCH 30.1 26.0 - 34.0 pg MCHC 35.3 32.0 - 36.0 g/dL RDW 12.1 11.5 - 14.5 % Platelets 285 150 - 450 x10*3/uL Comprehensive metabolic panel Result Value Ref Range Glucose 98 65 - 99 mg/dL Sodium 140 133 - 145 mmol/L Potassium 3.7 3.4 - 5.1 mmol/L Chloride 106 97 - 107 mmol/L Bicarbonate 21 (L) 24 - 31 mmol/L Urea Nitrogen 5 (L) 8 - 25 mg/dL Creatinine 0.60 0.40 - 1.60 mg/dL eGFR >90 >60 mL/min/1.73m*2 Calcium 8.7 8.5 - 10.4 mg/dL Albumin 3.2 (L) 3.5 - 5.0 g/dL Alkaline Phosphatase 68 35 - 125 U/L Total Protein 5.7 (L) 5.9 - 7.9 g/dL AST 27 5 - 40 U/L Bilirubin, Total 0.4 0.1 - 1.2 mg/dL ALT 14 5 - 40 U/L Anion Gap 13 <=19 mmol/L EGD Result Date: 03/19/2023 Table formatting from the original result was not included. Impression Edematous, granular and hemorrhagic mucosa in the body of the stomach Performed forceps biopsy in the body of the stomach to rule out H. pylori The upper third of the esophagus, middle third of the esophagus and lower third of the esophagus appeared normal. The jejunum appeared normal. One food bolus in the body of the stomachSmall gastric pouch with some retained food.. Findings Edematous, granular and hemorrhagic mucosa in the body of the stomach; Performed single forceps biopsy in the body of the stomach to rule out H.pylori The upper third of the esophagus, middle third of the esophagus and lower third of the esophagus appeared normal. The jejunum appeared normal. One food bolus in the body of the stomach Recommendation Consider the use of low dose reglan (5 mg) before meals. Await biopsy for h pylori... OK forsoft diet Indication Abdominal pain, Nausea and vomiting, unspecified vomiting type Staff Staff Role Eve Agosto MD Proceduralist Medications No administrations occurring from 1403 to 1433 on 04/10 Preprocedure A history and physical has been performed, and patient medication allergies have been reviewed. The patient's tolerance of previous anesthesia has been reviewed. The risks and benefits of the procedure and the sedation options and risks were discussed with the patient. All questions were answered and informed consent obtained. Details of the Procedure The patient underwent monitored anesthesia care, which was administered by an anesthesia professional. The patient's blood pressure, ECG, ETCO2, heart rate, level of consciousness, oxygen and respirations were monitored throughout the procedure. The scope was introduced through the mouth and advanced to the second part of theduodenum. Retroflexion was performed in the cardia. Prior to the procedure, the patient's H. Pyloristatus was negative. The patient experienced no blood loss. The procedure was not difficult. The patient tolerated the procedure well. There were no apparent adverse events. Events Procedure Events Event Event Time ENDO SCOPE IN TIME 03/19/2023 2:26 PM ENDO SCOPE OUT TIME 03/19/2023 2:32 PM Specimens ID Type Source Tests Collected by Time 1 : r/o h pylori Tissue STOMACH ANTRUM BIOPSY SURGICAL PATHOLOGY EXAM Michael Keyes RN 03/19/2023 1431 Procedure Location [address] [id number] Referring Provider Generic Provider [place] No address on file Procedure Provider No name on file XR chest 1 view Result Date: 03/17/2023 Interpreted By: Nya Ahmadi, STUDY: XR CHEST 1 VIEW 03/17/2023 7:09 pm INDICATION: Signs/Symptoms:S/p NG placement COMPARISON: 03/17/2023 done at 2:05 p.m. ACCESSION NUMBER(S): [id number] ORDERING CLINICIAN: TIFFANIE MENDEZ TECHNIQUE: AP erect view of the chest FINDINGS: The nasogastric tube has not ch anged in placement with the tip seen within the proximal thoracic esophagus. Heart and mediastinum are normally visualized. Lungs are clear. Distal tip of nasogastric tube in proximal thoracic esophagus just above the aortic arch. Signed by: Nya Ahmadi 03/17/2023 8:19 PM Dictation workstation: [id number] FL upper GI w double contrast w small bowel follow through Result Date: 03/17/2023 Interpreted By: Corie Garza, STUDY: FL UPPER GI W DOUBLE CONTRAST W SMALL BOWEL FOLLOW THROUGH; 03/17/2023 4:40 pm INDICATION: Signs/Symptoms:abdominal pain. COMPARISON: None. ACCESSION NUMBER(S): [id number] ORDERING CLINICIAN: TIFFANIE MENDEZ TECHNIQUE: Multiple fluoroscopic spot images were obtained during a single contrast upper GI with KUB. Total fluoroscopy time: 1 minute 32 seconds Radiation exposure (Reference Air Kerma): 99.36 mGy Images: 2 spot images 7 series and 2 delayed AP viewsof the abdomen FINDINGS: Checkout Supervisor images demonstrate postsurgical changes from previous Tan-en-Y gastric bypass. Contrast is seen passing easily from the distal esophagus into the gastric remnant and Tan loop. No evidence for extravasation is noted. No abnormally dilated loops of small bowel are noted. Contrast reaches large bowel within 150 minutes of administration of contrast. Postsurgical changes from gastric bypass. No evidence for obstruction.. MACRO: none Signed by: Corie Garza 03/17/2023 5:00 PM Dictation workstation: [id number] XR chest 1 view Result Date: 03/17/2023 Interpreted By: Corie Garza, STUDY: XR CHEST 1 VIEW; 03/17/2023 12:41 pm INDICATION: Signs/Symptoms:Status post NG tube placement. COMPARISON: None available ACCESSION NUMBER(S): [id number] ORDERING CLINICIAN: TIFFANIE MENDEZ FINDINGS: RESULT: Nasogastric tube is noted with tip in the upper esophagus at the level of the clavicular heads. The cardiac silhouette is within normal limits for size.Mediastinal contours are unremarkable. The lungs demonstrate no infiltrate or area of atelectasis. The osseous structures are unremarkable. Nasogastric tube tip is noted at the level of the upper esophagus at the level of the clavicular heads. The nasogastric tube removed itself from the patient soon after this exam. Signed by: Corie Garza 03/17/2023 4:19 PM Dictation workstation: [id number] CT abdomen pelvis w IV contrast Result Date: 03/16/2023 Interpreted By: Corie Garza, STUDY: CT ABDOMEN PELVIS W IV CONTRAST; 03/16/2023 5:27 pm INDICATION: Signs/Symptoms:abdominal pain - with oral and IV contrast. COMPARISON: None.. ACCESSION NUMBER(S): [id number] ORDERING CLINICIAN: TIFFANIE MENDEZ TECHNIQUE: Oral contrast was not administered. 75 ml Omnipaque [address] of the Abdomen and Pelvis with intravenous contrast was performed. Axial, sagittal and coronal reformatted images were reviewed. All CT examinations areperformed with 1 or more of the following dose reduction techniques: Automated exposure control, adjustment of mA and/or kv according to patient's size, or use of iterative reconstruction techniques.FINDINGS: Lower Chest: Ground-glass densities are noted in the bilateral lung bases dependently. Abdomen: Liver: Multiple well-circumscribed cystic lesions are noted involving both lobes of the liver, the largest on the right measuring approximately 2.0 cm Bile Ducts: Normal caliber. Gallbladder: Nance rgically absent Pancreas: Unremarkable. Spleen: Unremarkable. Adrenals: Normal. Kidneys: Normal. 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 Pelvis: No pelvic masses. Bladder: Unremarkable. Bowel: No bowel wall thickening or abnormal distention to suggest bowel obstruction. Mesenteric Lymph Nodes: No enlarged mesenteric lymph nodes. Peritoneum: Small amount of free fluid is noted adjacent to the spleen and within the pelvis. Vessels: Unremarkable Retroperitoneum: No retroperitoneal adenopathy. Abdominal Wall: Unremarkable. Bones: No acute bony abnormalities. Patchy ground-glass densities in the bilateral lung bases may represent atelectasis. Multiple cystic lesions scattered throughout both lobes of the liver. Postsurgical changes of Tan-en-Y gastric bypass. MACRO: none Signed by: Corie Garza 03/16/2023 5:46 PM Dictation workstation: [id number] XR chest 1 view Result Date: 03/06/2023 Interpreted By: Sara Zarate, STUDY: XR CHEST 1 VIEW; 03/06/2023 7:32 am INDICATION: Signs/Symptoms:post op COMPARISON: None ACCESSION NUMBER(S): [id number] ORDERING CLINICIAN: JASON FOSTER TECHNIQUE: Frontal and lateral chest radiographs. FINDINGS: Enteric tube is seen with the tip overlying the expected location of the stomach. Right upper extremity PICC is seen with the tip overlying the distal SVC. The cardiomediastinal silhouette is unremarkable. The lungs are clear. No pleural effusion is identified. The osseous structures are intact. Appliance positioning as noted above. No consolidation. Signed by: Sara Zarate 03/06/2023 1:48 PM Dictation workstation: [id number] XR chest 1 view Result Date: 03/05/2023 Interpreted By: Baldomero Hendrickson, STUDY: XR CHEST 1 VIEW; 03/05/2023 3:11 pm INDICATION: CLINICAL INFORMATION: Signs/Symptoms:NG tube placement confirmation. COMPARISON: 03/05/2019 at 745 hours ACCESSION NUMBER(S): [id number] ORDERING CLINICIAN: DESMOND TIRADO TECHNIQUE: Portable chest one view. FINDINGS: The cardiac size is indeterminate in view of the AP projection. Nasogastric tube extends into the left upper quadrant. Right-sided PICC line is present with the catheter tip overlying the SVC right atrial junction. No infiltrates or effusions are identified. 1. Status post NG tube insertion with the tube extending into the left upper quadrant. 2. Stable appearance of the PICC line. 3. No infiltrates are identified. MACRO: none Signed by: Baldomero Hendrickson 03/05/2023 3:31 PM Dictation workstation: [id number] XR chest 1 view Result Date: 03/05/2023 Interpreted By: Nya Ahmadi, STUDY: XR CHEST 1 VIEW 03/05/2023 7:51 am INDICATION: Signs/Symptoms:confirm line placement COMPARISON: None available. ACCESSION NUMBER(S): [id number] ORDERING CLINICIAN: SERENA GEORGE TECHNIQUE: AP erect view of the chest FINDINGS: Right arm PICC line terminates in the SVC. There is no pneumothorax. The heart, mediastinum, and lungs are normally visualized. Right arm PICC line terminating in SVC without pneumothorax. No acute cardiopulmonary disease. Signed by: Nya Ahmadi 03/05/2023 7:54 AM Dictation workstation: [id number] Assessment/Plan -Abdominal pain/nausea -Median arcuate ligament syndrome, status post ligament release on 03/05/2023 -Obesity: status post laparoscopic sleeve gastrectomy in August [address] Ku and Tan-en-Y gastric bypass 01/29/[address] Kat 1. Abdominal pain/nausea: CT abdomen pelvis with IV contrast reviewed by Dr. Magaña. -Pt for EGD today with GI and Bariatric surgery input - NG tube placement - Continue n.p.o. - Morning labs - Zofran IV for nausea - Percocet p.o. for pain - Appreciate GI/Bariatric surggery input -Hospitalist on consult for medical comanagement Asthma: Continue home medications Hypothyroidism: On Synthroid and Cytomel Anemia: Continue home iron supplementation GERD: Continue Pepcid I spent 45 minutes in the professional and overall care of this patient. I spent 25 minutes in the professional and overall care of this patient. JAMA Lynn * Kurt Matos MD - 03/19/2023 3:26 PM EST Abbey Garcia is a 32 y.o. female on day 3 of admission presenting with Abdominal pain. Subjective Patient in endoscopy suite ready for pre-endoscopy huddle Last Recorded Vitals Blood pressure 119/64, pulse 66, temperature 36.2 C (97.2 F), temperature source Temporal, resp. rate 13, height 1.676 m (5' 6 ), weight 92.7 kg (204 lb 5.9 oz), SpO2 99 %. Intake/Output last 3 Shifts: I/O last 3 completed shifts: In: 1203.7 (13 mL/kg) [P.O.:100; I.V.:1093.7 (11.8 mL/kg); IV Piggyback:10] Out: 0 (0 mL/kg) Weight: 92.7 kg Assessment/Plan Principal Problem: Abdominal pain EGD performed by Dr. Agosto observed. Normal appearing gastric pouch. Of note, there was retainedgastric secretions in gastric pouch which was not expected. No ulcer, no stricture, no bile in rouxlimb, short candycane. No evidence of abnormal post-gastric bypass anatomy based on endoscopic or radiographic findings. Patient may have element of poor gastric empyting. After discussion with Dr. Agosto, she may benefit from trial on low dose reglan with meals if no contraindication. Will deferto her bariatric surgeon, Dr. Morel, at [place]. Will sign off. Kurt Matos MD * Aisha Davila RN - 03/19/2023 3:11 PM EST Abbey Garcia is a 32 y.o. female on day 3 of admission presenting with Abdominal pain. Met with patient at bedside. Patient states she has been active with [facility] in [place] . Patient would like to continue HHC with [facility]. Referral was sent. EGD scheduled today. Has NG in place. [facility] is able to accept for STEF. NG discontinued. On clear liquids. WILL NEED AND EXTERNAL REFERRAL FOR RESUMPTION OF HHC. Aisha Davila RN * Shelley Nash APRN-APPLICATION SECURITY ARCHITECT - 03/19/2023 12:32 PM EST Abbey Garcia is a 32 y.o. female on day 3 of admission presenting with Abdominal pain. Subjective Feeling the same. Persistent nausea. +abdominal pain. No new issues or events. No fever or chils. States that her abdominal pain is localized to left upper abdominal area. Objective Physical Exam Constitutional: Appearance: Normal appearance. HENT: Head: Normocephalic and atraumatic. Right Ear: Tympanic membrane normal. Nose: Nose normal. Mouth/Throat: Mouth: Mucous membranes are moist. Eyes: Pupils: Pupils are equal, round, and reactive to light. Cardiovascular: Rate and Rhythm: Normal rate and regular rhythm. Pulses: Normal pulses. Pulmonary: Effort: Pulmonary effort is normal. Breath sounds: Normal breath sounds. Abdominal: General: Bowel sounds are normal. Tenderness: There is abdominal tenderness. There is no guarding. Hernia: No hernia is present. Comments: Healing midline abdominal incision. Diffuse abdominal tenderness. Genitourinary: Rectum: Normal. Musculoskeletal: General: Normal range of motion. Skin: General: Skin is warm and dry. Neurological: General: No focal deficit present. Mental Status: She is alert. Psychiatric: Mood and Affect: Mood normal. Behavior: Behavior normal. Last Recorded Vitals Blood pressure 121/72, pulse 69, temperature 37 C (98.6 F), temperature source Oral, resp. rate 17,height 1.676 m (5' 6 ), weight 92.7 kg (204 lb 5.9 oz), SpO2 97 %. Intake/Output last 3 Shifts: I/O last 3 completed shifts: In: 1203.7 (13 mL/kg) [P.O.:100; I.V.:1093.7 (11.8 mL/kg); IV Piggyback:10] Out: 0 (0 mL/kg) Weight: 92.7 kg Relevant Results Lab Results Component Value Date GLUCOSE 98 03/19/2023 CALCIUM 8.7 03/19/2023 NA 140 03/19/2023 K 3.7 03/19/2023 CO2 21 (L) 03/19/2023 CL 106 03/19/2023 BUN 5 (L) 03/19/2023 CREATININE 0.60 03/19/2023 Lab Results Component Value Date WBC 4.3 (L) 03/19/2023 HGB 11.9 (L) 03/19/2023 HCT 33.7 (L) 03/19/2023 MCV 85 03/19/2023 PLT 285 03/19/2023 Assessment/Plan Principal Problem: Abdominal pain 03/19/23: continue to monitor peripherally. Outpatient follow up with [facility] colorectal team. 03/18/23: No planned surgical intervention here. Would recommend pt to follow up with her usual [facility] surgeons after DC. Acid bingo checker. MVI, B12. I spent 15 minutes in the professional and overall care of this patient. Shelley Nash, SLIM-APPLICATION SECURITY ARCHITECT * Lizz Brunson, BRANCH SERVICE ASSOCIATE-APPLICATION SECURITY ARCHITECT - 03/19/2023 10:09 AM EST Abbey Garcia is a 32 y.o. female on day 3 of admission presenting with Abdominal pain. Subjective Seen and examined. NG tube to low intermittent wall suction. Continues to report some mild abdominal pain, slightly improving. Reports intermittent nausea, denies vomiting. Denies chest pain, shortness of breath. No acute distress. Objective Last Recorded Vitals BP 121/72 (BP Location: Left arm, Patient Position: Lying) Pulse 69 Temp 37 C (98.6 F) (Oral) Resp 17 Wt 92.7 kg (204 lb 5.9 oz) SpO2 97% Intake/Output last 3 Shifts: Intake/Output Summary (Last 24 hours) at 03/19/2023 1009 Last data filed at 03/18/2023 2120 Gross per 24 hour Intake 183.33 ml Output 0 ml Net 183.33 ml Admission Weight Weight: 92.7 kg (204 lb 5.9 oz) (03/16/23 1347) Daily Weight 03/16/23 : 92.7 kg (204 lb 5.9 oz) Image Results XR chest 1 view Narrative: Interpreted By: Nya Ahmadi, STUDY: XR CHEST 1 VIEW 03/17/2023 7:09 pm INDICATION: Signs/Symptoms:S/p NG placement COMPARISON: 03/17/2023 done at 2:05 p.m. ACCESSION NUMBER(S): [id number] ORDERING CLINICIAN: TIFFANIE MENDEZ TECHNIQUE: AP erect view of the chest FINDINGS: The nasogastric tube has not changed in placement with the tip seen within the proximal thoracic esophagus. Heart and mediastinum are normally visualized. Lungs are clear. Impression: Distal tip of nasogastric tube in proximal thoracic esophagus just above the aortic arch. Signed by: Nya Ahmadi 03/17/2023 8:19 PM Dictation workstation: [id number] FL upper GI w double contrast w small bowel follow through Narrative: Interpreted By: Corie Garza, STUDY: FL UPPER GI W DOUBLE CONTRAST W SMALL BOWEL FOLLOW THROUGH; 03/17/2023 4:40 pm INDICATION: Signs/Symptoms:abdominal pain. COMPARISON: None. ACCESSION NUMBER(S): [id number] ORDERING CLINICIAN: TIFFANIE MENDEZ TECHNIQUE: Multiple fluoroscopic spot images were obtained during a single contrast upper GI with KUB. 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 Contrast is seen passing easily from the distal esophagus into the gastric remnant and Tan loop. No evidence for extravasation is noted. No abnormally dilated loops of small bowel are noted. Contrast reaches large bowel within 150 minutes of administration of contrast. Impression: Postsurgical changes from gastric bypass. No evidence for obstruction.. MACRO: none Signed by: Corie Garza 03/17/2023 5:00 PM Dictation workstation: [id number] XR chest 1 view Narrative: Interpreted By: Corie Garza, STUDY: XR CHEST 1 VIEW; 03/17/2023 12:41 pm INDICATION: Signs/Symptoms:Status post NG tube placement. COMPARISON: None available ACCESSION NUMBER(S): [id number] ORDERING CLINICIAN: TIFFANIE MENDEZ FINDINGS: RESULT: Nasogastric tube is noted with tip in the upper esophagus at the level of the clavicular heads. The cardiac silhouette is within normal limits for size. Mediastinal contours are unremarkable. The lungs demonstrate no infiltrate or area of atelectasis. The osseous structures are unremarkable. Impression: Nasogastric tube tip is noted at the level of the upper esophagus at the level of the clavicular heads. The nasogastric tube removed itself from the patient soon after this exam. Signed by: Corie Garza 03/17/2023 4:19 PM Dictation workstation: [id number] Physical Exam Vitals and nursing note reviewed. Constitutional: Appearance: Normal appearance. HENT: Head: Normocephalic and atraumatic. Nose: Comments: NG tube to low intermittent wall suction Mouth/Throat: Mouth: Mucous membranes are moist. Eyes: Extraocular Movements: Extraocular movements intact. Pupils: Pupils are equal, round, and reactive to light. Cardiovascular: Rate and Rhythm: Normal rate. Pulses: Normal pulses. Pulmonary: Effort: Pulmonary effort is normal. Abdominal: General: Bowel sounds are normal. Palpations: Abdomen is soft. Musculoskeletal: General: Normal range of motion. Cervical back: Normal range of motion and neck supple. Skin: Capillary Refill: Capillary refill takes less than 2 seconds. Neurological: Mental Status: She is alert and oriented to person, place, and time. Psychiatric: Mood and Affect: Mood normal. Relevant Results Assessment/Plan Principal Problem: Abdominal pain Postop abdominal pain, nausea, vomiting As managed by primary service-vascular N.p.o., NG tube placed 03/17/2023 Antiemetics, as needed pain medicine Hypothyroidism Continue home Synthroid, Cytomel Anxiety, depression Continue home Valium, BuSpar, Lexapro, Remeron, Atarax Asthma Continue home as needed nebulizer treatments History of headaches Hold home Topamax for now Monitor headaches Anemia Continue home iron supplementation GERD Continue home Pepcid 03/19/2023: No acute events overnight. Scheduled for EGD today. JAMA Smith * JAMA Greenberg - 03/18/2023 3:55 PM EST Abbey Garcia is a 32 y.o. female on day 2 of admission presenting with Abdominal pain. Subjective Feeling the same. Persistent nausea. +abdominal pain. Small bms. No fever or chils. States that herabdominal pain is localized to left upper abdominal area. Objective Physical Exam Constitutional: Appearance: Normal appearance. HENT: Head: Normocephalic and atraumatic. Right Ear: Tympanic membrane normal. Nose: Nose normal. Mouth/Throat: Mouth: Mucous membranes are moist. Eyes: Pupils: Pupils are equal, round, and reactive to light. Cardiovascular: Rate and Rhythm: Normal rate and regular rhythm. Pulses: Normal pulses. Pulmonary: Effort: Pulmonary effort is normal. Breath sounds: Normal breath sounds. Abdominal: General: Bowel sounds are normal. Tenderness: There is abdominal tenderness. There is no guarding. Hernia: No hernia is present. Comments: Healing midline abdominal incision. Diffuse abdominal tenderness. Genitourinary: Rectum: Normal. Musculoskeletal: General: Normal range of motion. Skin: General: Skin is warm and dry. Neurological: General: No focal deficit present. Mental Status: She is alert. Psychiatric: Mood and Affect: Mood normal. Behavior: Behavior normal. Last Recorded Vitals Blood pressure 115/74, pulse 65, temperature 36.8 C (98.2 F), temperature source Oral, resp. rate 18, height 1.676 m (5' 6 ), weight 92.7 kg (204 lb 5.9 oz), SpO2 100 %. Intake/Output last 3 Shifts: I/O last 3 completed shifts: In: 1020.4 (11 mL/kg) [I.V.:1010.4 (10.9 mL/kg); IV Piggyback:10] Out: - (0 mL/kg) Weight: 92.7 kg Relevant Results Assessment/Plan Principal Problem: Abdominal pain 03/18/23: No planned surgical intervention here. Would recommend pt to follow up with her usual [facility] surgeons after DC. Acid bingo checker. MVI, B12. I spent 15 minutes in the professional and overall care of this patient. Shelley Nash APRN-BETH * JAMA Lynn - 03/18/2023 3:11 PM EST Abbey Garcia is a 32 y.o. female on day 2 of admission presenting with Abdominal pain. Subjective Patient seen and examined. She states she is feeling better overall. She has an NG tube with low intermittent wall suction. Objective Physical Exam General: Pt is alert and oriented x 3. Pleasant, conversive HEENT: Head is atraumatic, normocephalic Abdomen: Soft, nondistended, nontender. Bowel sounds x4 quadrants. Midline abdominal incision well-approximated. No surrounding tissue erythema or induration. Pulse exam: Palpable pedal pulses bilaterally. Extremities: No significant edema noted. Extremities are warm to the touch and normal in color. No open wounds or sores. Neuro: Moves all extremities spontaneously. No focal deficits. Psych: Appropriate affect. Answers questions appropriately. Last Recorded Vitals Blood pressure 115/74, pulse 65, temperature 36.8 C (98.2 F), temperature source Oral, resp. rate 18, height 1.676 m (5' 6 ), weight 92.7 kg (204 lb 5.9 oz), SpO2 100 %. Intake/Output last 3 Shifts: I/O last 3 completed shifts: In: 1020.4 (11 mL/kg) [I.V.:1010.4 (10.9 mL/kg); IV Piggyback:10] Out: - (0 mL/kg) Weight: 92.7 kg Relevant Results Scheduled medications busPIRone, 10 mg, oral, BID cyanocobalamin, 50 mcg, oral, Daily escitalopram, 20 mg, oral, Daily famotidine, 20 mg, oral, BID ferrous sulfate (325 mg ferrous sulfate), 1 tablet, oral, Daily with breakfast heparin (porcine), 5,000 Units, subcutaneous, q8h TANIA levothyroxine, 100 mcg, oral, Daily lidocaine, 1 Application, Topical, Once liothyronine, 5 mcg, oral, Daily mirtazapine, 15 mg, oral, Nightly pantoprazole, 40 mg, intravenous, BID Continuous medications dextrose 5 % and lactated Ringer's, 100 mL/hr, Last Rate: 100 mL/hr (03/19/23 0735) PRN medications PRN medications: acetaminophen OR acetaminophen OR acetaminophen, albuterol, diazePAM, hydrOXYzine HCL, morphine, ondansetron, oxyCODONE- acetaminophen, polyethylene glycol Assessment/Plan -Abdominal pain/nausea -Median arcuate ligament syndrome, status post ligament release on 03/05/2023 -Obesity: status post laparoscopic sleeve gastrectomy in August [address] Ku and Tan-en-Y gastric bypass 01/29/[address] Kat 1. Abdominal pain/nausea: CT abdomen pelvis with IV contrast reviewed by Dr. Magaña. Plan for upper GI series. - NG tube placement - Continue n.p.o. - Morning labs - Zofran IV for nausea - Percocet p.o. for pain - Patient going for EGD tomorrow 03/19/2023. - Consult Dr. Tato Nguyen for further evaluation and input -Hospitalist on consult for medical comanagement Asthma: Continue home medications Hypothyroidism: On Synthroid and Cytomel Anemia: Continue home iron supplementation GERD: Continue Pepcid I spent 45 minutes in the professional and overall care of this patient. JAMA Lynn * EVERTON Mark - 03/18/2023 1:10 PM EST Pt lives in a house with her and 3 kids in two story house with first floor setup. 5 steps to enter the house. Pt drives, works, independent for mobility. Pt wears glasses. Pts PCP is Dr Marino with [facility], prescriptions filled through [facility] in [place]. Uncertain if pt will have dc needs. Her last admit she went home with [facility]. TCC to follow ongoing medical workup. Safe dc plan not secured-TCC to follow Sabina [facility] [employer], [employer] * Lizz Brunson APRN-APPLICATION SECURITY ARCHITECT - 03/18/2023 10:57 AM EST Abbey Garcia is a 32 y.o. female on day 2 of admission presenting with Abdominal pain. Subjective Seen and examined. NG tube to low intermittent wall suction. Continues to report some mild abdominal pain. Reports some nausea, denies vomiting. Denies chest pain, shortness of breath. No acute distress. Objective Last Recorded Vitals BP 115/74 (BP Location: Left arm, Patient Position: Lying) Pulse 65 Temp 36.8 C (98.2 F) (Oral) Resp 18 Wt 92.7 kg (204 lb 5.9 oz) SpO2 100% Intake/Output last 3 Shifts: Intake/Output Summary (Last 24 hours) at 03/18/2023 1057 Last data filed at 03/18/2023 0657 Gross per 24 hour Intake 1020.41 ml Output -- Net 1020.41 ml Admission Weight Weight: 92.7 kg (204 lb 5.9 oz) (03/16/23 1347) Daily Weight 03/16/23 : 92.7 kg (204 lb 5.9 oz) Image Results XR chest 1 view Narrative: Interpreted By: Nya Ahmadi, STUDY: XR CHEST 1 VIEW 03/17/2023 7:09 pm INDICATION: Signs/Symptoms:S/p NG placement COMPARISON: 03/17/2023 done at 2:05 p.m. ACCESSION NUMBER(S): [id number] ORDERING CLINICIAN: TIFFANIE MENDEZ TECHNIQUE: AP erect view of the chest FINDINGS: The nasogastric tube has not changed in placement with the tip seen within the proximal thoracic esophagus. Heart and mediastinum are normally visualized. Lungs are clear. Impression: Distal tip of nasogastric tube in proximal thoracic esophagus just above the aortic arch. Signed by: Nya Ahmadi 03/17/2023 8:19 PM Dictation workstation: [id number] FL upper GI w double contrast w small bowel follow through Narrative: Interpreted By: Corie Garza, STUDY: FL UPPER GI W DOUBLE CONTRAST W SMALL BOWEL FOLLOW THROUGH; 03/17/2023 4:40 pm INDICATION: Signs/Symptoms:abdominal pain. COMPARISON: None. ACCESSION NUMBER(S): [id number] ORDERING CLINICIAN: TIFFANIE MENDEZ TECHNIQUE: Multiple fluoroscopic spot images were obtained during a single contrast upper GI with KUB. 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 Contrast is seen passing easily from the distal esophagus into the gastric remnant and Tan loop. No evidence for extravasation is noted. No abnormally dilated loops of small bowel are noted. Contrast reaches large bowel within 150 minutes of administration of contrast. Impression: Postsurgical changes from gastric bypass. No evidence for obstruction.. MACRO: none Signed by: Corie Garza 03/17/2023 5:00 PM Dictation workstation: [id number] XR chest 1 view Narrative: Interpreted By: Corie Garza, STUDY: XR CHEST 1 VIEW; 03/17/2023 12:41 pm INDICATION: Signs/Symptoms:Status post NG tube placement. COMPARISON: None available ACCESSION NUMBER(S): [id number] ORDERING CLINICIAN: TIFFANIE MENDEZ FINDINGS: RESULT: Nasogastric tube is noted with tip in the upper esophagus at the level of the clavicular heads. The cardiac silhouette is within normal limits for size. Mediastinal contours are unremarkable. The lungs demonstrate no infiltrate or area of atelectasis. The osseous structures are unremarkable. Impression: Nasogastric tube tip is noted at the level of the upper esophagus at the level of the clavicular heads. The nasogastric tube removed itself from the patient soon after this exam. Signed by: Corie Garza 03/17/2023 4:19 PM Dictation workstation: [id number] Physical Exam Vitals and nursing note reviewed. Constitutional: Appearance: Normal appearance. HENT: Head: Normocephalic and atraumatic. Nose: Comments: NG tube to low intermittent wall suction Mouth/Throat: Mouth: Mucous membranes are moist. Eyes: Extraocular Movements: Extraocular movements intact. Pupils: Pupils are equal, round, and reactive to light. Cardiovascular: Rate and Rhythm: Normal rate. Pulses: Normal pulses. Pulmonary: Effort: Pulmonary effort is normal. Abdominal: General: Bowel sounds are normal. Palpations: Abdomen is soft. Musculoskeletal: General: Normal range of motion. Cervical back: Normal range of motion and neck supple. Skin: Capillary Refill: Capillary refill takes less than 2 seconds. Neurological: Mental Status: She is alert and oriented to person, place, and time. Psychiatric: Mood and Affect: Mood normal. Relevant Results Assessment/Plan Principal Problem: Abdominal pain Postop abdominal pain, nausea, vomiting As managed by primary service-vascular N.p.o., NG tube placed yesterday. Antiemetics, as needed pain medicine Hypothyroidism Continue home Synthroid, Cytomel Anxiety, depression Continue home Valium, BuSpar, Lexapro, Remeron, Atarax Asthma Continue home as needed nebulizer treatments History of headaches Hold home Topamax for now Monitor headaches Anemia Continue home iron supplementation GERD Continue home Pepcid JAMA Smith * Keesha Jack - 03/18/2023 10:50 AM EST Spiritual Care Visit Clinical Encounter Type Visited With: Patient Routine Visit: Introduction Continue Visiting: Yes Values/Beliefs Spiritual Requests During Hospitalization: Anointed today NPO Sacramental Encounters Communion: Patient wants communion Communion Given Indicator: Yes Sacrament of Sick-Anointing: Anointed Keesha Jack * Kurt Matos MD - 03/18/2023 9:08 AM EST Abbey Garcia is a 32 y.o. female on day 2 of admission presenting with Abdominal pain. Subjective Feels okay and a little better than yesterday. Since seen yesterday has had the same only epigastric and left upper quadrant abdominal pain that is the same as yesterday and currently rates a 7. Has a little bit of nausea today that is better than yesterday. Passing gas. Since seen yesterday had 4 loose bowel movements without blood. Feels full and bloated. Does not feel empty or hungry. Denies any angina, shortness of breath, calf pain, bleeding, cough, sputum. Getting out of bed. Does not have an I-S-will order one. Objective Vital signs in last 24 hours: Temp: [35.9 C (96.6 F)-36.8 C (98.2 F)] 36.8 C (98.2 F) Heart Rate: [65-70] 65 Resp: [17-18] 18 BP: (115-121)/(74-84) 115/74 Heart Rate: [65-70] Temp: [35.9 C (96.6 F)-36.8 C (98.2 F)] Resp: [17-18] BP: (115-121)/(74-84) SpO2: [97 %-100 %] Intake/Output last 3 Shifts: I/O last 3 completed shifts: In: 1020.4 (11 mL/kg) [I.V.:1010.4 (10.9 mL/kg); IV Piggyback:10] Out: - (0 mL/kg) Weight: 92.7 kg Physical Exam No acute distress Nonseptic appearing Looks fine and comfortable Alert and oriented Heart regular Lungs clear No edema Abdomen soft, positive bowel sounds, nondistended, nontender except for only left upper quadrant patient rates a 7 and epigastric patient rates a 6-both with no guarding/rebound, no obvious hernias, it does not cause the patient any abdominal pain when I shake her bed a little bit, midline incisionis healing nicely without any issues NG is currently with the suction off secondary to being given meds and there is nothing really in the canister Scheduled medications busPIRone, 10 mg, oral, BID escitalopram, 20 mg, oral, Daily famotidine, 20 mg, oral, BID ferrous sulfate (325 mg ferrous sulfate), 1 tablet, oral, Daily with breakfast heparin (porcine), 5,000 Units, subcutaneous, q8h TANIA levothyroxine, 100 mcg, oral, Daily lidocaine, 1 Application, Topical, Once liothyronine, 5 mcg, oral, Daily mirtazapine, 15 mg, oral, Nightly pantoprazole, 40 mg, intravenous, BID thiamine, 100 mg, intravenous, Daily Continuous medications PRN medications PRN medications: acetaminophen OR acetaminophen OR acetaminophen, albuterol, diazePAM, hydrOXYzine HCL, morphine, ondansetron, oxyCODONE- acetaminophen, polyethylene glycol Relevant Results Results from last 7 days Lab Units 03/18/23 0636 03/17/23 0704 03/16/23 1357 WBC AUTO x10*3/uL 4.0* 5.0 5.0 HEMOGLOBIN g/dL 12.1 11.5* 10.8* HEMATOCRIT % 37.2 34.9* 33.4* PLATELETS AUTO x10*3/uL 266 268 273 Results from last 7 days Lab Units 03/18/23 0636 03/17/23 0704 03/16/23 1357 SODIUM mmol/L 137 143 141 POTASSIUM mmol/L 3.8 4.3 3.7 CHLORIDE mmol/L 108* 112* 110* CO2 mmol/L 19* 21* 21* BUN mg/dL 5* 5* 8 CREATININE mg/dL 0.80 0.80 0.80 GLUCOSE mg/dL 79 122* 82 CALCIUM mg/dL 8.4* 8.1* 7.9* XR chest 1 view Result Date: 03/17/2023 Interpreted By: Nya Ahmadi, STUDY: XR CHEST 1 VIEW 03/17/2023 7:09 pm INDICATION: Signs/Symptoms:S/p NG placement COMPARISON: 03/17/2023 done at 2:05 p.m. ACCESSION NUMBER(S): [id number] ORDERING CLINICIAN: TIFFANIE MENDEZ TECHNIQUE: AP erect view of the chest FINDINGS: The nasogastric tube has not ch anged in placement with the tip seen within the proximal thoracic esophagus. Heart and mediastinum are normally visualized. Lungs are clear. Distal tip of nasogastric tube in proximal thoracic esophagus just above the aortic arch. Signed by: Nya Ahmadi 03/17/2023 8:19 PM Dictation workstation: [id number] FL upper GI w double contrast w small bowel follow through Result Date: 03/17/2023 Interpreted By: Corie Garza, STUDY: FL UPPER GI W DOUBLE CONTRAST W SMALL BOWEL FOLLOW THROUGH; 03/17/2023 4:40 pm INDICATION: Signs/Symptoms:abdominal pain. COMPARISON: None. ACCESSION NUMBER(S): [id number] ORDERING CLINICIAN: TIFFANIE MENDEZ TECHNIQUE: Multiple fluoroscopic spot images were obtained during a single contrast upper GI with KUB. Total fluoroscopy time: 1 minute 32 seconds Radiation exposure (Reference Air Kerma): 99.36 mGy Images: 2 spot images 7 series and 2 delayed AP viewsof the abdomen FINDINGS: Checkout Supervisor images demonstrate postsurgical changes from previous Tan-en-Y gastric bypass. Contrast is seen passing easily from the distal esophagus into the gastric remnant and Tan loop. No evidence for extravasation is noted. No abnormally dilated loops of small bowel are noted. Contrast reaches large bowel within 150 minutes of administration of contrast. Postsurgical changes from gastric bypass. No evidence for obstruction.. MACRO: none Signed by: Corie Garza 03/17/2023 5:00 PM Dictation workstation: [id number] XR chest 1 view Result Date: 03/17/2023 Interpreted By: Corie Garza, STUDY: XR CHEST 1 VIEW; 03/17/2023 12:41 pm INDICATION: Signs/Symptoms:Status post NG tube placement. COMPARISON: None available ACCESSION NUMBER(S): [id number] ORDERING CLINICIAN: TIFFANIE MENDEZ FINDINGS: RESULT: Nasogastric tube is noted with tip in the upper esophagus at the level of the clavicular heads. The cardiac silhouette is within normal limits for size.Mediastinal contours are unremarkable. The lungs demonstrate no infiltrate or area of atelectasis. The osseous structures are unremarkable. Nasogastric tube tip is noted at the level of the upper esophagus at the level of the clavicular heads. The nasogastric tube removed itself from the patient soon after this exam. Signed by: Corie Garza 03/17/2023 4:19 PM Dictation workstation: [id number] CT abdomen pelvis w IV contrast Result Date: 03/16/2023 Interpreted By: Corie Garza, STUDY: CT ABDOMEN PELVIS W IV CONTRAST; 03/16/2023 5:27 pm INDICATION: Signs/Symptoms:abdominal pain - with oral and IV contrast. COMPARISON: None.. ACCESSION NUMBER(S): [id number] ORDERING CLINICIAN: TIFFANIE MENDEZ TECHNIQUE: Oral contrast was not administered. 75 ml Omnipaque [address] of the Abdomen and Pelvis with intravenous contrast was performed. Axial, sagittal and coronal reformatted images were reviewed. All CT examinations areperformed with 1 or more of the following dose reduction techniques: Automated exposure control, adjustment of mA and/or kv according to patient's size, or use of iterative reconstruction techniques.FINDINGS: Lower Chest: Ground-glass densities are noted in the bilateral lung bases dependently. Abdomen: Liver: Multiple well-circumscribed cystic lesions are noted involving both lobes of the liver, the largest on the right measuring approximately 2.0 cm Bile Ducts: Normal caliber. Gallbladder: Nance rgically absent Pancreas: Unremarkable. Spleen: Unremarkable. Adrenals: Normal. Kidneys: Normal. 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 Pelvis: No pelvic masses. Bladder: Unremarkable. Bowel: No bowel wall thickening or abnormal distention to suggest bowel obstruction. Mesenteric Lymph Nodes: No enlarged mesenteric lymph nodes. Peritoneum: Small amount of free fluid is noted adjacent to the spleen and within the pelvis. Vessels: Unremarkable Retroperitoneum: No retroperitoneal adenopathy. Abdominal Wall: Unremarkable. Bones: No acute bony abnormalities. Patchy ground-glass densities in the bilateral lung bases may represent atelectasis. Multiple cystic lesions scattered throughout both lobes of the liver. Postsurgical changes of Tan-en-Y gastric bypass. MACRO: none Signed by: Corie Garza 03/16/2023 5:46 PM Dictation workstation: [id number] Assessment/Plan Abdominal pain, nausea, chronic intolerance to oral intake. History of gastric bypass Imaging as above UGI appeared to have normal radiographic Tan-en-Y anatomy but was notable for the entire colon being air filled. Recommendations are ppi bid Add mvi to daily routine-either oral or if not tolerated by IV Continue with thiamine daily Continue with B12 daily Agree with EGD by GI service-scheduled for 2/2 N.p.o. IV fluids per primary NG not indicated in patient with Tan-en-Y gastric bypass without a bowel obstruction No acute bariatric urgical indications at present Will discuss EGD with Dr. Agosto tomorrow. Daisy Montero, SLIM-BETH * Deepika Roy, SLIM-BETH - 03/18/2023 8:50 AM EST Abbey Garcia is a 32 y.o. female on day 2 of admission presenting with Abdominal pain. Subjective Patient still complains of some nausea, abdominal pain has improved. NG tube in place Objective Physical Exam HENT: Head: Normocephalic. Right Ear: Tympanic membrane normal. Nose: Nose normal. Mouth/Throat: Mouth: Mucous membranes are moist. Eyes: Pupils: Pupils are equal, round, and reactive to light. Cardiovascular: Rate and Rhythm: Normal rate. Pulmonary: Effort: Pulmonary effort is normal. Abdominal: Palpations: Abdomen is soft. Tenderness: There is abdominal tenderness. Musculoskeletal: General: Normal range of motion. Cervical back: Normal range of motion. Skin: General: Skin is warm. Neurological: General: No focal deficit present. Mental Status: She is alert. Psychiatric: Mood and Affect: Mood normal. Last Recorded Vitals Blood pressure 115/74, pulse 65, temperature 36.8 C (98.2 F), temperature source Oral, resp. rate 18, height 1.676 m (5' 6 ), weight 92.7 kg (204 lb 5.9 oz), SpO2 100 %. Intake/Output last 3 Shifts: I/O last 3 completed shifts: In: 1020.4 (11 mL/kg) [I.V.:1010.4 (10.9 mL/kg); IV Piggyback:10] Out: - (0 mL/kg) Weight: 92.7 kg Relevant Results Results for orders placed or performed during the hospital encounter of 03/16/23 (from the past 24 hour(s)) CBC Result Value Ref Range WBC 4.0 (L) 4.4 - 11.3 x10*3/uL nRBC 0.0 0.0 - 0.0 /100 WBCs RBC 4.03 4.00 - 5.20 x10*6/uL Hemoglobin 12.1 12.0 - 16.0 g/dL Hematocrit 37.2 36.0 - 46.0 % MCV 92 80 - 100 fL MCH 30.0 26.0 - 34.0 pg MCHC 32.5 32.0 - 36.0 g/dL RDW 12.5 11.5 - 14.5 % Platelets 266 150 - 450 x10*3/uL Comprehensive metabolic panel Result Value Ref Range Glucose 79 65 - 99 mg/dL Sodium 137 133 - 145 mmol/L Potassium 3.8 3.4 - 5.1 mmol/L Chloride 108 (H) 97 - 107 mmol/L Bicarbonate 19 (L) 24 - 31 mmol/L Urea Nitrogen 5 (L) 8 - 25 mg/dL Creatinine 0.80 0.40 - 1.60 mg/dL eGFR >90 >60 mL/min/1.73m*2 Calcium 8.4 (L) 8.5 - 10.4 mg/dL Albumin 3.0 (L) 3.5 - 5.0 g/dL Alkaline Phosphatase 66 35 - 125 U/L Total Protein 5.7 (L) 5.9 - 7.9 g/dL AST 33 5 - 40 U/L Bilirubin, Total 0.3 0.1 - 1.2 mg/dL ALT 17 5 - 40 U/L Anion Gap 10 <=19 mmol/L XR chest 1 view Result Date: 03/17/2023 Interpreted By: Nya Ahmadi, STUDY: XR CHEST 1 VIEW 03/17/2023 7:09 pm INDICATION: Signs/Symptoms:S/p NG placement COMPARISON: 03/17/2023 done at 2:05 p.m. ACCESSION NUMBER(S): [id number] ORDERING CLINICIAN: TIFFANIE MENDEZ TECHNIQUE: AP erect view of the chest FINDINGS: The nasogastric tube has not ch anged in placement with the tip seen within the proximal thoracic esophagus. Heart and mediastinum are normally visualized. Lungs are clear. Distal tip of nasogastric tube in proximal thoracic esophagus just above the aortic arch. Signed by: Nya Ahmadi 03/17/2023 8:19 PM Dictation workstation: [id number] FL upper GI w double contrast w small bowel follow through Result Date: 03/17/2023 Interpreted By: Corie Garza, STUDY: FL UPPER GI W DOUBLE CONTRAST W SMALL BOWEL FOLLOW THROUGH; 03/17/2023 4:40 pm INDICATION: Signs/Symptoms:abdominal pain. COMPARISON: None. ACCESSION NUMBER(S): [id number] ORDERING CLINICIAN: TIFFANIE MENDEZ TECHNIQUE: Multiple fluoroscopic spot images were obtained during a single contrast upper GI with KUB. Total fluoroscopy time: 1 minute 32 seconds Radiation exposure (Reference Air Kerma): 99.36 mGy Images: 2 spot images 7 series and 2 delayed AP viewsof the abdomen FINDINGS: Checkout Supervisor images demonstrate postsurgical changes from previous Tan-en-Y gastric bypass. Contrast is seen passing easily from the distal esophagus into the gastric remnant and Tan loop. No evidence for extravasation is noted. No abnormally dilated loops of small bowel are noted. Contrast reaches large bowel within 150 minutes of administration of contrast. Postsurgical changes from gastric bypass. No evidence for obstruction.. MACRO: none Signed by: Corie Garza 03/17/2023 5:00 PM Dictation workstation: [id number] XR chest 1 view Result Date: 03/17/2023 Interpreted By: Corie Garza, STUDY: XR CHEST 1 VIEW; 03/17/2023 12:41 pm INDICATION: Signs/Symptoms:Status post NG tube placement. COMPARISON: None available ACCESSION NUMBER(S): [id number] ORDERING CLINICIAN: TIFFANIE MENDEZ FINDINGS: RESULT: Nasogastric tube is noted with tip in the upper esophagus at the level of the clavicular heads. The cardiac silhouette is within normal limits for size.Mediastinal contours are unremarkable. The lungs demonstrate no infiltrate or area of atelectasis. The osseous structures are unremarkable. Nasogastric tube tip is noted at the level of the upper esophagus at the level of the clavicular heads. The nasogastric tube removed itself from the patient soon after this exam. Signed by: Corie Garza 03/17/2023 4:19 PM Dictation workstation: [id number] CT abdomen pelvis w IV contrast Result Date: 03/16/2023 Interpreted By: Corie Garza, STUDY: CT ABDOMEN PELVIS W IV CONTRAST; 03/16/2023 5:27 pm INDICATION: Signs/Symptoms:abdominal pain - with oral and IV contrast. COMPARISON: None.. ACCESSION NUMBER(S): [id number] ORDERING CLINICIAN: TIFFANIE MENDEZ TECHNIQUE: Oral contrast was not administered. 75 ml Omnipaque [address] of the Abdomen and Pelvis with intravenous contrast was performed. Axial, sagittal and coronal reformatted images were reviewed. All CT examinations areperformed with 1 or more of the following dose reduction techniques: Automated exposure control, adjustment of mA and/or kv according to patient's size, or use of iterative reconstruction techniques.FINDINGS: Lower Chest: Ground-glass densities are noted in the bilateral lung bases dependently. Abdomen: Liver: Multiple well-circumscribed cystic lesions are noted involving both lobes of the liver, the largest on the right measuring approximately 2.0 cm Bile Ducts: Normal caliber. Gallbladder: Nance rgically absent Pancreas: Unremarkable. Spleen: Unremarkable. Adrenals: Normal. Kidneys: Normal. 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 Pelvis: No pelvic masses. Bladder: Unremarkable. Bowel: No bowel wall thickening or abnormal distention to suggest bowel obstruction. Mesenteric Lymph Nodes: No enlarged mesenteric lymph nodes. Peritoneum: Small amount of free fluid is noted adjacent to the spleen and within the pelvis. Vessels: Unremarkable Retroperitoneum: No retroperitoneal adenopathy. Abdominal Wall: Unremarkable. Bones: No acute bony abnormalities. Patchy ground-glass densities in the bilateral lung bases may represent atelectasis. Multiple cystic lesions scattered throughout both lobes of the liver. Postsurgical changes of Tan-en-Y gastric bypass. MACRO: none Signed by: Corie Garza 03/16/2023 5:46 PM Dictation workstation: [id number] XR chest 1 view Result Date: 03/06/2023 Interpreted By: Sara Zarate, STUDY: XR CHEST 1 VIEW; 03/06/2023 7:32 am INDICATION: Signs/Symptoms:post op COMPARISON: None ACCESSION NUMBER(S): [id number] ORDERING CLINICIAN: JASON FOSTER TECHNIQUE: Frontal and lateral chest radiographs. FINDINGS: Enteric tube is seen with the tip overlying the expected location of the stomach. Right upper extremity PICC is seen with the tip overlying the distal SVC. The cardiomediastinal silhouette is unremarkable. The lungs are clear. No pleural effusion is identified. The osseous structures are intact. Appliance positioning as noted above. No consolidation. Signed by: Sara Zarate 03/06/2023 1:48 PM Dictation workstation: [id number] XR chest 1 view Result Date: 03/05/2023 Interpreted By: Baldomero Hendrickson, STUDY: XR CHEST 1 VIEW; 03/05/2023 3:11 pm INDICATION: CLINICAL INFORMATION: Signs/Symptoms:NG tube placement confirmation. COMPARISON: 03/05/2019 at 745 hours ACCESSION NUMBER(S): [id number] ORDERING CLINICIAN: DESMOND TIRADO TECHNIQUE: Portable chest one view. FINDINGS: The cardiac size is indeterminate in view of the AP projection. Nasogastric tube extends into the left upper quadrant. Right-sided PICC line is present with the catheter tip overlying the SVC right atrial junction. No infiltrates or effusions are identified. 1. Status post NG tube insertion with the tube extending into the left upper quadrant. 2. Stable appearance of the PICC line. 3. No infiltrates are identified. MACRO: none Signed by: Baldomero Hendrickson 03/05/2023 3:31 PM Dictation workstation: [id number] XR chest 1 view Result Date: 03/05/2023 Interpreted By: Nya Ahmadi, STUDY: XR CHEST 1 VIEW 03/05/2023 7:51 am INDICATION: Signs/Symptoms:confirm line placement COMPARISON: None available. ACCESSION NUMBER(S): [id number] ORDERING CLINICIAN: SERENA EGORGE TECHNIQUE: AP erect view of the chest FINDINGS: Right arm PICC line terminates in the SVC. There is no pneumothorax. The heart, mediastinum, and lungs are normally visualized. Right arm PICC line terminating in SVC without pneumothorax. No acute cardiopulmonary disease. Signed by: Nya Ahmadi 03/05/2023 7:54 AM Dictation workstation: [id number] Assessment/Plan Principal Problem: Abdominal pain NV, Epigastric Pain (LFTs are normal. CT a/p normal) -Complicated recent surgical hx with tan en y and gastric sleeve followed by MALS and vascular intervention earlier this month. She was having a post op ileus at that time. Still on narcotics -with proceed with EGD for symptomatic treatment in the presence of Dr. Tato Nguyen. -EGD order placed, tentative plan for tomorrow -Increase PPI to twice daily Deepika Roy APRN-APPLICATION SECURITY ARCHITECT Associated attestation - Yani Wong MD - 03/18/2023 11:13 PM EST Seen and examined . I agree with assessment. Labs reviewed. Surgical notes reviewed. Overall after recent vascular surgery abdominal pain is better but is still not able to eat. Proceed with EGD tomorrow continue PPI twice daily and antiemetic as needed. * Lizz Brunson, BRANCH SERVICE ASSOCIATE-APPLICATION SECURITY ARCHITECT - 03/17/2023 11:30 AM EST Abbey Garcia is a 32 y.o. female on day 1 of admission presenting with Abdominal pain. Subjective Seen and examined. Denies acute events overnight. Resting grandfather in room. Reports some nausea,denies vomiting. Denies chest pain, shortness of breath. No acute distress. NG tube has been ordered. Objective Last Recorded Vitals BP 116/67 (BP Location: Left arm, Patient Position: Lying) Pulse 66 Temp 36.4 C (97.5 F) (Oral) Resp 16 Wt 92.7 kg (204 lb 5.9 oz) SpO2 100% Intake/Output last 3 Shifts: No intake or output data in the 24 hours ending 03/17/23 1130 Admission Weight Weight: 92.7 kg (204 lb 5.9 oz) (03/16/23 1347) Daily Weight 03/16/23 : 92.7 kg (204 lb 5.9 oz) Image Results CT abdomen pelvis w IV contrast Narrative: Interpreted By: Corie Garza, STUDY: CT ABDOMEN PELVIS W IV CONTRAST; 03/16/2023 5:27 pm INDICATION: Signs/Symptoms:abdominal pain - with oral and IV contrast. COMPARISON: None.. ACCESSION NUMBER(S): [id number] ORDERING CLINICIAN: TIFFANIE MENDEZ TECHNIQUE: Oral contrast was not administered. 75 ml Omnipaque [address] of the Abdomen and Pelvis with intravenous contrast was performed. Axial, sagittal and coronal reformatted images were reviewed. All CT examinations are performed with 1 or more of the following dose reduction techniques: Automated exposure control, adjustment of mA and/or kv according to patient's size, or use of iterative reconstruction techniques. FINDINGS: Lower Chest: Ground-glass densities are noted in the bilateral lung bases dependently. Abdomen: Liver: Multiple well-circumscribed cystic lesions are noted involving both lobes of the liver, the largest on the right measuring approximately 2.0 cm Bile Ducts: Normal caliber. Gallbladder: Surgically absent Pancreas: Unremarkable. Spleen: Unremarkable. Adrenals: Normal. Kidneys: Normal. 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 Pelvis: No pelvic masses. Bladder: Unremarkable. Bowel: No bowel wall thickening or abnormal distention to suggest bowel obstruction. Mesenteric Lymph Nodes: No enlarged mesenteric lymph nodes. Peritoneum: Small amount of free fluid is noted adjacent to the spleen and within the pelvis. Vessels: Unremarkable Retroperitoneum: No retroperitoneal adenopathy. Abdominal Wall: Unremarkable. Bones: No acute bony abnormalities. Impression: Patchy ground-glass densities in the bilateral lung bases may represent atelectasis. Multiple cystic lesions scattered throughout both lobes of the liver. Postsurgical changes of Tan-en-Y gastric bypass. MACRO: none Signed by: Corie Garza 03/16/2023 5:46 PM Dictation workstation: [id number] Physical Exam Vitals and nursing note reviewed. Constitutional: Appearance: Normal appearance. HENT: Head: Normocephalic and atraumatic. Nose: Nose normal. Mouth/Throat: Mouth: Mucous membranes are moist. Eyes: Extraocular Movements: Extraocular movements intact. Pupils: Pupils are equal, round, and reactive to light. Cardiovascular: Rate and Rhythm: Normal rate. Pulses: Normal pulses. Pulmonary: Effort: Pulmonary effort is normal. Abdominal: General: Bowel sounds are normal. Palpations: Abdomen is soft. Musculoskeletal: General: Normal range of motion. Cervical back: Normal range of motion and neck supple. Skin: Capillary Refill: Capillary refill takes less than 2 seconds. Neurological: Mental Status: She is alert and oriented to person, place, and time. Psychiatric: Mood and Affect: Mood normal. Relevant Results Assessment/Plan Principal Problem: Abdominal pain Postop abdominal pain, nausea, vomiting As managed by primary service-vascular N.p.o., antiemetics, as needed Percocet Hypothyroidism Continue home Synthroid, Cytomel Anxiety, depression Continue home Valium, BuSpar, Lexapro, Remeron, Atarax Asthma Continue home as needed nebulizer treatments History of headaches Hold home Topamax for now Monitor headaches Anemia Continue home iron supplementation GERD Continue home Pepcid 03/17/2023: Abdominal pain and nausea has been subsiding. NG tube placement has been ordered by vascular. Will continue to follow. Lizz Brunson APRN-APPLICATION SECURITY ARCHITECT * Sherry Magaña MD - 03/16/2023 4:59 PM EST Images from the original note were not included. 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 She responded to a celiac plexus block which allowed her to eat a normal meal but the pain recurred after the block wore off. I performed the operation via laparotomy because of her recent operations and was able to free heavily matted fibrotic tissues off of the celiac axis and resected significantamount of nerve tissue to free the celiac axis completely. This typically results in 2 kinds of pain. There is pain from the dissection and resection in the posterior diaphragm that recapitulate the original pain associated with median arcuate ligament syndrome which takes about a week to 2 weeks to resolve before recurring in some patients when significant inflammation occurs during the healing process. The second kind of pain is muscle spasm of the abdominal wall muscles particularly the rectus abdominis muscles which typically occurs in younger patients that is quite uncomfortable and is treated with both opiates and Valium. Given her gastric sleeve she may have a very small gastric reservoir and the use of opiate analgesics probably has resulted in significant gastric ileus as well as a small bowel ileus. These along with her symptoms of severe nausea and left upper quadrant abdominal discomfort. She has not been vomiting but has retched due to the nausea. She was seen in her local emergency room out in [place]. She was discharged after her nausea was relieved last night but this nausea recurred and she was transferred here. I suspect given adequate pain control and control of her nausea that once the inflammation of her surgery resolves she will feel much better. Pancreatitis and bowel ischemia have been ruled out through lab testing and noncontrast CT done yesterday in [place]. I am going to get a CT scan with IV andoral contrast today and start IV fluids and antiemetics as well as analgesics. Unless she starts taking p.o.'s well I will likely place a feeding tube and start enteral feedings during this hospitalization. She will be getting a gastroenterology consultation as well as a foregut surgery consultation. [facility] [place] [facility] Phone: 1(439) 673-993902-03-2024 Hospital Discharge instructions* Discharge Instructions* JAMA Lynn - 03/20/2023 3:21 PM EST What to expect: -Avoid heaving lifting of more than 10-15 lbs. or abdominal straining for 6 weeks. -Fatigue is common when you go home. Walking and going up and down stairs is fine, but don t overdo it. No strenuous activity for 4-6 weeks. You should be up and out of bed everyday. -Lack of appetite is common. Try to eat small, frequent meals and drink plenty of uncaffeinated fluids. If you are unable to eat much, a nutrition supplement such as Boost or Ensure may be added. If you are unable to keep any fluids down for a 24 hr period, notify our office. -You may shower normally. Avoid tub baths for 4 weeks. Keep the incision clean and dry. -You may drive when you feel ready and are no longer taking narcotic pain medications. This is usually one to two weeks after discharge. A prescription for pain medicine will be given to you at discharge. Ibuprofen (Advil or Motrin) may also be useful for pain control in addition to the narcotic medicine. A heating pad on your abdomen may help with gas pain. Notify our office if you experience any of the following: -Painful swelling, increasing redness, copious or thick drainage from the incision -Fever greater than 100.4 -Persistent nausea or vomiting -Worsening abdominal pain -Calf pain or one sided swelling in your leg -Shortness of breath Please follow up with Dr. Kat who did your gastric sleeve for further management. Follow up in 1-2 weeks documented [facility] [place] Work Phone: 1(357) 258-251302-02-2024 Plan of care note* Care Plan - Eric Campos RN - 03/19/2023 9:37 PM EST The patient's goals for the shift include Free from pain The clinical goals for the shift include pain control Problem: Skin Goal: Decreased wound size/increased tissue granulation at next dressing change Outcome: Progressing Goal: Participates in plan/prevention/treatment measures Outcome: Progressing Goal: Prevent/manage excess moisture Outcome: Progressing Goal: Prevent/minimize sheer/friction injuries Outcome: Progressing Goal: Promote/optimize nutrition Outcome: Progressing Goal: Promote skin healing Outcome: Progressing Problem: Pain Goal: Takes deep breaths with improved pain control throughout the shift Outcome: Progressing Goal: Turns in bed with improved pain control throughout the shift Outcome: Progressing Goal: Walks with improved pain control throughout the shift Outcome: Progressing Goal: Performs ADL's with improved pain control throughout shift Outcome: Progressing Goal: Participates in PT with improved pain control throughout the shift Outcome: Progressing Goal: Free from opioid side effects throughout the shift Outcome: Progressing Goal: Free from acute confusion related to pain meds throughout the shift Outcome: Progressing [facility]02-02-2024 Miscellaneous Notes* Care Plan - Eric Campos RN - 03/19/2023 9:37 PM EST The patient's goals for the shift include Free from pain The clinical goals for the shift include pain control Problem: Skin Goal: Decreased wound size/increased tissue granulation at next dressing change Outcome: Progressing Goal: Participates in plan/prevention/treatment measures Outcome: Progressing Goal: Prevent/manage excess moisture Outcome: Progressing Goal: Prevent/minimize sheer/friction injuries Outcome: Progressing Goal: Promote/optimize nutrition Outcome: Progressing Goal: Promote skin healing Outcome: Progressing Problem: Pain Goal: Takes deep breaths with improved pain control throughout the shift Outcome: Progressing Goal: Turns in bed with improved pain control throughout the shift Outcome: Progressing Goal: Walks with improved pain control throughout the shift Outcome: Progressing Goal: Performs ADL's with improved pain control throughout shift Outcome: Progressing Goal: Participates in PT with improved pain control throughout the shift Outcome: Progressing Goal: Free from opioid side effects throughout the shift Outcome: Progressing Goal: Free from acute confusion related to pain meds throughout the shift Outcome: Progressing * Care Plan - Christina Lazo RN - 03/19/2023 2:58 PM EST Problem: Skin Goal: Decreased wound size/increased tissue granulation at next dressing change Outcome: Progressing Goal: Participates in plan/prevention/treatment measures Outcome: Progressing Goal: Prevent/manage excess moisture Outcome: Progressing Goal: Prevent/minimize sheer/friction injuries Outcome: Progressing Goal: Promote/optimize nutrition Outcome: Progressing Goal: Promote skin healing Outcome: Progressing Problem: Pain Goal: Takes deep breaths with improved pain control throughout the shift Outcome: Progressing Goal: Turns in bed with improved pain control throughout the shift Outcome: Progressing Goal: Walks with improved pain control throughout the shift Outcome: Progressing Goal: Performs ADL's with improved pain control throughout shift Outcome: Progressing Goal: Participates in PT with improved pain control throughout the shift Outcome: Progressing Goal: Free from opioid side effects throughout the shift Outcome: Progressing Goal: Free from acute confusion related to pain meds throughout the shift Outcome: Progressing The patient's goals for the shift include Free from pain The clinical goals for the shift include pain control Over the shift, the patient did not make progress toward the following goals. Barriers to progression include. Recommendations to address these barriers include. * Care Plan - Eric Campos RN - 03/18/2023 9:20 PM EST The patient's goals for the shift include Free from pain The clinical goals for the shift include pain control Problem: Skin Goal: Decreased wound size/increased tissue granulation at next dressing change Outcome: Progressing Goal: Participates in plan/prevention/treatment measures Outcome: Progressing Goal: Prevent/manage excess moisture Outcome: Progressing Goal: Prevent/minimize sheer/friction injuries Outcome: Progressing Goal: Promote/optimize nutrition Outcome: Progressing Goal: Promote skin healing Outcome: Progressing Problem: Pain Goal: Takes deep breaths with improved pain control throughout the shift Outcome: Progressing Goal: Turns in bed with improved pain control throughout the shift Outcome: Progressing Goal: Walks with improved pain control throughout the shift Outcome: Progressing Goal: Performs ADL's with improved pain control throughout shift Outcome: Progressing Goal: Participates in PT with improved pain control throughout the shift Outcome: Progressing Goal: Free from opioid side effects throughout the shift Outcome: Progressing Goal: Free from acute confusion related to pain meds throughout the shift Outcome: Progressing * Care Plan - Andie Lugo RN - 03/18/2023 11:05 AM EST The patient's goals for the shift include Free from pain The clinical goals for the shift include decrease nausea * Care Plan - Eric Campos RN - 03/17/2023 10:17 PM EST The patient's goals for the shift include Free from pain The clinical goals for the shift include decrease nausea Problem: Skin Goal: Decreased wound size/increased tissue granulation at next dressing change Outcome: Progressing Goal: Participates in plan/prevention/treatment measures Outcome: Progressing Goal: Prevent/manage excess moisture Outcome: Progressing Goal: Prevent/minimize sheer/friction injuries Outcome: Progressing Goal: Promote/optimize nutrition Outcome: Progressing Goal: Promote skin healing Outcome: Progressing Problem: Pain Goal: Takes deep breaths with improved pain control throughout the shift Outcome: Progressing Goal: Turns in bed with improved pain control throughout the shift Outcome: Progressing Goal: Walks with improved pain control throughout the shift Outcome: Progressing Goal: Performs ADL's with improved pain control throughout shift Outcome: Progressing Goal: Participates in PT with improved pain control throughout the shift Outcome: Progressing Goal: Free from opioid side effects throughout the shift Outcome: Progressing Goal: Free from acute confusion related to pain meds throughout the shift Outcome: Progressing * Care Plan - Cathy Madera RN - 03/17/2023 5:07 PM EST Problem: Skin Goal: Decreased wound size/increased tissue granulation at next dressing change Outcome: Progressing Goal: Participates in plan/prevention/treatment measures Outcome: Progressing Goal: Prevent/manage excess moisture Outcome: Progressing Goal: Prevent/minimize sheer/friction injuries Outcome: Progressing Goal: Promote/optimize nutrition Outcome: Progressing Goal: Promote skin healing Outcome: Progressing Problem: Pain Goal: Takes deep breaths with improved pain control throughout the shift Outcome: Progressing Goal: Turns in bed with improved pain control throughout the shift Outcome: Progressing Goal: Walks with improved pain control throughout the shift Outcome: Progressing Goal: Performs ADL's with improved pain control throughout shift Outcome: Progressing Goal: Participates in PT with improved pain control throughout the shift Outcome: Progressing Goal: Free from opioid side effects throughout the shift Outcome: Progressing Goal: Free from acute confusion related to pain meds throughout the shift Outcome: Progressing The patient's goals for the shift include no pain The clinical goals for the shift include to improve pain control, maintain and ensure patient safety. * Significant Event - Channing Oconnor DO - 03/16/2023 3:02 PM EST Called to admit this patient for abdominal pain. Going to review, this patient has a ongoing history since 2019 of abdominal pain with considerable notes from [facility], and has a history gastric bypass, cholecystectomy, sphincterectomy, and recent median arcuate ligament release on March 05 with vascular surgery. [facility] and sent home, again presenting today and apparently CT without contrast was done which was unremarkable; I am confused with this, but the ER apparently at that facility discussedwith vascular surgery here and ER to ER transfer was done. No lab work has been done at this facility. No imaging recent done at this facility. Ultimately, this is a patient with no active emesis per my discussion with ER staff, and feel that in this patient has either an acute worsening of her chronic issue which will be best done at [facility] either as inpatient or outpatient, where she has ongoing work, or is a postoperative situation that has been discussed multiple times with the primary operating service (and I have discussed with Tiffanie Mendez CNP with their service and there appears to be a good plan for imaging studies), and can ba admitted by their service). documented in this [facility] Work Phone: 1(976) 804-473902-02-2024 Plan of care note* Care Plan - Christina Lazo RN - 03/19/2023 2:58 PM EST Problem: Skin Goal: Decreased wound size/increased tissue granulation at next dressing change Outcome: Progressing Goal: Participates in plan/prevention/treatment measures Outcome: Progressing Goal: Prevent/manage excess moisture Outcome: Progressing Goal: Prevent/minimize sheer/friction injuries Outcome: Progressing Goal: Promote/optimize nutrition Outcome: Progressing Goal: Promote skin healing Outcome: Progressing Problem: Pain Goal: Takes deep breaths with improved pain control throughout the shift Outcome: Progressing Goal: Turns in bed with improved pain control throughout the shift Outcome: Progressing Goal: Walks with improved pain control throughout the shift Outcome: Progressing Goal: Performs ADL's with improved pain control throughout shift Outcome: Progressing Goal: Participates in PT with improved pain control throughout the shift Outcome: Progressing Goal: Free from opioid side effects throughout the shift Outcome: Progressing Goal: Free from acute confusion related to pain meds throughout the shift Outcome: Progressing The patient's goals for the shift include Free from pain The clinical goals for the shift include pain control Over the shift, the patient did not make progress toward the following goals. Barriers to progression include. Recommendations to address these barriers include. [facility]02-01-2024 Plan of care note* Care Plan - Eric Campos RN - 03/18/2023 9:20 PM EST The patient's goals for the shift include Free from pain The clinical goals for the shift include pain control Problem: Skin Goal: Decreased wound size/increased tissue granulation at next dressing change Outcome: Progressing Goal: Participates in plan/prevention/treatment measures Outcome: Progressing Goal: Prevent/manage excess moisture Outcome: Progressing Goal: Prevent/minimize sheer/friction injuries Outcome: Progressing Goal: Promote/optimize nutrition Outcome: Progressing Goal: Promote skin healing Outcome: Progressing Problem: Pain Goal: Takes deep breaths with improved pain control throughout the shift Outcome: Progressing Goal: Turns in bed with improved pain control throughout the shift Outcome: Progressing Goal: Walks with improved pain control throughout the shift Outcome: Progressing Goal: Performs ADL's with improved pain control throughout shift Outcome: Progressing Goal: Participates in PT with improved pain control throughout the shift Outcome: Progressing Goal: Free from opioid side effects throughout the shift Outcome: Progressing Goal: Free from acute confusion related to pain meds throughout the shift Outcome: Progressing [facility] Work Phone: 1(492) 342-588302-01-2024 Nurse Note* Andie Lugo RN - 03/18/2023 4:47 PM EST Pt resting quietly in bed, no distres noted [facility]02-01-2024 Nurse Note* Andie Lugo RN - 03/18/2023 3:17 PM EST Pt given IS and instructed how to use, pt verbalized understanding [facility] Work Phone: 1(289) 807-111102-01-2024 Nurse Note* Andie Lugo RN - 03/18/2023 2:50 PM EST Ronnie foster cnp into see pt [facility] Work Phone: 1(113) 700-912002-01-2024 Consult note* Nabila Moore RDN, [place] - 03/18/2023 2:31 PM EST Nutrition Assessement Note Nutrition Assessment Reason for Assessment: Admission nursing screening (MST 2) Reason for Hospital Admission: Abbey Garcia is a 32 y.o. female who is admitted for abdominal pain. Pt recently seen by Nutrition this month from previous admission. Pt s/p median release via laparotomy (03/05/23). Pt with Hx of receiving her nutrition with TPN via a PICC line for extended period of time at least 3-4 months, GERD, IBS-C, PCOS, PUD, and bariatric surgery. Pt seen for MST 2. NG placed yesterday. Pt currently NPO w/o tube feed orders. When ready to initiate tube feeding, recommendations provided below. Nutrition History: Food and Nutrient History: Pt currently NPO. 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 Pt now off TPN. Pt states that she last tried eating 3 days ago and proceeded to throw the food up. She reports that if she sips on a protein shake and doesn't take too much of it all at once, she is able to tolerate it. Pt reported that she had tried enteral feeds through an NG in the past, but doesn't recall which formula it was. Pt endorses discomfort with the current NG tube. Energy Intake: Poor < 50 % Food Allergies/Intolerances: None GI Symptoms: Diarrhea and Nausea Oral Problems: Swallowing difficulty Anthropometrics: Ht: 167.6 cm (5' 6 ), Wt: 92.7 kg (204 lb 5.9 oz), BMI: 33 IBW/kg (Dietitian Calculated): 59.1 kg Adjusted Body Weight (kg): 67.5 kg Weight Change: Daily Weight 03/16/23 : 92.7 kg (204 lb 5.9 oz) 03/10/23 : 83.4 kg (183 lb 13.8 oz) 03/02/23 : 83.5 kg (184 lb 1.4 oz) 01/13/23 : 81.6 kg (180 lb) Weight History / % Weight Change: usual wt 185-190# Nutrition Focused Physical Exam Findings: defer: Pt not appropriate at this time. Nutrition Significant Labs: Lab Results Component Value Date WBC 4.0 (L) 03/18/2023 HGB 12.1 03/18/2023 HCT 37.2 03/18/2023 PLT 266 03/18/2023 ALT 17 03/18/2023 AST 33 03/18/2023 NA 137 03/18/2023 K 3.8 03/18/2023 CL 108 (H) 03/18/2023 CREATININE 0.80 03/18/2023 BUN 5 (L) 03/18/2023 CO2 19 (L) 03/18/2023 HGBA1C 5.1 11/08/2019 Current Facility-Administered Medications: acetaminophen (Tylenol) tablet 650 mg, 650 mg, oral, q4h PRN OR acetaminophen (Tylenol) oral liquid 650 mg, 650 mg, nasogastric tube, q4h PRN, 650 mg at 03/16/23 1755 OR acetaminophen (Tylenol) suppository 650 mg, 650 mg, rectal, q4h PRN, JAMA Judd albuterol 2.5 mg /3 mL (0.083 %) nebulizer solution 2.5 mg, 2.5 mg, nebulization, q4h PRN, JAMA Judd busPIRone (Buspar) tablet 10 mg, 10 mg, oral, BID, JAMA Judd, 10 mg at 03/18/23 0811 diazePAM (Valium) tablet 5 mg, 5 mg, oral, q8h PRN, JAMA Judd, 5 mg at 03/18/23 1221 escitalopram (Lexapro) tablet 20 mg, 20 mg, oral, Daily, JORGITO Judd CNP, 20 mg at 811 famotidine (Pepcid) tablet 20 mg, 20 mg, oral, BID, JAMA Judd, 20 mg at 03/18/23 0811 ferrous sulfate (325 mg ferrous sulfate) tablet 1 tablet, 1 tablet, oral, Daily with breakfast, JAMA Judd, 1 tablet at 03/18/23 0811 heparin (porcine) injection 5,000 Units, 5,000 Units, subcutaneous, q8h TANIA, JAMA Judd, 5,000 Units at 03/18/23 1401 hydrOXYzine HCL (Atarax) tablet 25 mg, 25 mg, oral, Daily PRN, JAMA Judd levothyroxine (Synthroid, Levoxyl) tablet 100 mcg, 100 mcg, oral, Daily, JAMA Judd, 100 mcg at 03/18/23 0609 lidocaine (Uro-Jet) 2 % jelly 1 Application, 1 Application, Topical, Once, JAMA Judd liothyronine (Cytomel) tablet 5 mcg, 5 mcg, oral, Daily, JORGITO Judd CNP, 5 mcg at 609 mirtazapine (Remeron) tablet 15 mg, 15 mg, oral, Nightly, JORGITO Judd CNP, 15 mg at 03/17/23 195 morphine injection 2 mg, 2 mg, intravenous, q4h PRN, JAMA Smith, 2 mg at 03/18/23 1407 ondansetron (Zofran) injection 4 mg, 4 mg, intravenous, q6h PRN, JAMA Judd, 4 mg at 03/17/231954 oxyCODONE-acetaminophen (Percocet) 5-325 mg per tablet 1 tablet, 1 tablet, oral, q6h PRN, JAMA Judd, 1 tablet at 03/17/23 0803 pantoprazole (ProtoNix) injection 40 mg, 40 mg, intravenous, BID, Kurt Matos MD, 40 mg at 03/18/23 0811 polyethylene glycol (Glycolax, Miralax) packet 17 g, 17 g, oral, Daily PRN, JAMA Judd thiamine (Vitamin B1) injection 100 mg, 100 mg, intravenous, Daily, Kurt Nguyen MD, 100 mg at 03/18/23 0811 Dietary Orders (From admission, onward) Start Ordered 03/16/23 1508 NPO Diet; Effective now Diet effective now 03/16/23 1509 Estimated Needs: Estimated Energy Needs Total Energy Estimated Needs (kCal): (1899-0869 kcals) Total Estimated Energy Need per Day (kCal/kg): (25-30 kcals/kg) Method for Estimating Needs: adjusted IBW Estimated Protein Needs Total Protein Estimated Needs (g): (68-81g Protein) Total Protein Estimated Needs (g/kg): (1-1.2 g/kg) Method for Estimating Needs: adjusted IBW Estimated Fluid Needs Total Fluid Estimated Needs (mL): (5286-6128 mL fluid) Method for Estimating Needs: 1 mL/kcal Nutrition Diagnosis Nutrition Diagnosis: Nutrition Diagnosis Patient has Nutrition Diagnosis: Yes Diagnosis Status (1): New Nutrition Diagnosis 1: Inadequate oral intake Related to (1): decreased ability to consume sufficient energy As Evidenced by (1): conditions associated with dx and need for NG tube Nutrition Interventions/Recommendations Nutrition Interventions and Recommendations: Nutrition Prescription: Individualized Nutrition Prescription Provided for : 5526-5163 kcals, 68-81g Protein, 3210-0127 mL fluid, provided via PO/NG, once diet advanced. Nutrition Interventions: Food and/or Nutrient Delivery Interventions Interventions: Enteral intake Enteral Intake: Modify composition of enteral nutrition, Modify rate of enteral nutrition Goal: When able to initiate Tube feeding, recommend Osmolite 1.5 @ goal rate of 45 mL/hr to [id number] kcals, 68g Protein, and 823 mL free water. Provide 135 mL water flushes q4hrs to provide adequate hydration. If initiated, start at 10 mL/hr and increase by 10 mL/hr q 8 hrs until goal rate met. Education Documentation No documentation found. Nutrition Monitoring and Evaluation Monitoring/Evaluation: Food/Nutrient Related History Monitoring Monitoring and Evaluation Plan: Enteral and parenteral nutrition intake Enteral and Parenteral Nutrition Intake: Enteral nutrition formula/solution, Enteral nutrition intake Criteria: Monitor for Tube Feeding initiation __ Time Spent/Follow-up: Follow Up Time Spent (min): 45 minutes Last Date of Nutrition Visit: 03/18/23 Nutrition Follow-Up Needed?: 3-5 days Follow up Comment: 03/22/23 [facility]02-01-2024 Consult note* Nabila Moore RDN, LD - 03/18/2023 2:31 PM EST Nutrition Assessement Note Nutrition Assessment Reason for Assessment: Admission nursing screening (MST 2) Reason for Hospital Admission: Abbey Garcia is a 32 y.o. female who is admitted for abdominal pain. Pt recently seen by Nutrition this month from previous admission. Pt s/p median release via laparotomy (03/05/23). Pt with Hx of receiving her nutrition with TPN via a PICC line for extended period of time at least 3-4 months, GERD, IBS-C, PCOS, PUD, and bariatric surgery. Pt seen for MST 2. NG placed yesterday. Pt currently NPO w/o tube feed orders. When ready to initiate tube feeding, recommendations provided below. Nutrition History: Food and Nutrient History: Pt currently NPO. 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 Pt now off TPN. Pt states that she last tried eating 3 days ago and proceeded to throw the food up. She reports that if she sips on a protein shake and doesn't take too much of it all at once, she is able to tolerate it. Pt reported that she had tried enteral feeds through an NG in the past, but doesn't recall which formula it was. Pt endorses discomfort with the current NG tube. Energy Intake: Poor < 50 % Food Allergies/Intolerances: None GI Symptoms: Diarrhea and Nausea Oral Problems: Swallowing difficulty Anthropometrics: Ht: 167.6 cm (5' 6 ), Wt: 92.7 kg (204 lb 5.9 oz), BMI: 33 IBW/kg (Dietitian Calculated): 59.1 kg Adjusted Body Weight (kg): 67.5 kg Weight Change: Daily Weight 03/16/23 : 92.7 kg (204 lb 5.9 oz) 03/10/23 : 83.4 kg (183 lb 13.8 oz) 03/02/23 : 83.5 kg (184 lb 1.4 oz) 01/13/23 : 81.6 kg (180 lb) Weight History / % Weight Change: usual wt 185-190# Nutrition Focused Physical Exam Findings: defer: Pt not appropriate at this time. Nutrition Significant Labs: Lab Results Component Value Date WBC 4.0 (L) 03/18/2023 HGB 12.1 03/18/2023 HCT 37.2 03/18/2023 PLT 266 03/18/2023 ALT 17 03/18/2023 AST 33 03/18/2023 NA 137 03/18/2023 K 3.8 03/18/2023 CL 108 (H) 03/18/2023 CREATININE 0.80 03/18/2023 BUN 5 (L) 03/18/2023 CO2 19 (L) 03/18/2023 HGBA1C 5.1 11/08/2019 Current Facility-Administered Medications: acetaminophen (Tylenol) tablet 650 mg, 650 mg, oral, q4h PRN OR acetaminophen (Tylenol) oral liquid 650 mg, 650 mg, nasogastric tube, q4h PRN, 650 mg at 03/16/23 1755 OR acetaminophen (Tylenol) suppository 650 mg, 650 mg, rectal, q4h PRN, JAMA Judd albuterol 2.5 mg /3 mL (0.083 %) nebulizer solution 2.5 mg, 2.5 mg, nebulization, q4h PRN, JAMA Judd busPIRone (Buspar) tablet 10 mg, 10 mg, oral, BID, JAMA Judd, 10 mg at 03/18/23 0811 diazePAM (Valium) tablet 5 mg, 5 mg, oral, q8h PRN, JAMA Judd, 5 mg at 03/18/23 1221 escitalopram (Lexapro) tablet 20 mg, 20 mg, oral, Daily, JORGITO Judd CNP, 20 mg at 811 famotidine (Pepcid) tablet 20 mg, 20 mg, oral, BID, JAMA Judd, 20 mg at 03/18/23 0811 ferrous sulfate (325 mg ferrous sulfate) tablet 1 tablet, 1 tablet, oral, Daily with breakfast, JAMA Judd, 1 tablet at 03/18/23 0811 heparin (porcine) injection 5,000 Units, 5,000 Units, subcutaneous, q8h TANIA, JAMA Judd, 5,000 Units at 03/18/23 1401 hydrOXYzine HCL (Atarax) tablet 25 mg, 25 mg, oral, Daily PRN, JAMA Judd levothyroxine (Synthroid, Levoxyl) tablet 100 mcg, 100 mcg, oral, Daily, JAMA Judd, 100 mcg at 03/18/23 0609 lidocaine (Uro-Jet) 2 % jelly 1 Application, 1 Application, Topical, Once, JAMA Judd liothyronine (Cytomel) tablet 5 mcg, 5 mcg, oral, Daily, JORGITO Judd CNP, 5 mcg at mirtazapine (Remeron) tablet 15 mg, 15 mg, oral, Nightly, Tiffanie Mendez APRN- BETH, 15 mg at 03/17/231955 morphine injection 2 mg, 2 mg, intravenous, q4h PRN, Lizz Brunson APRN-APPLICATION SECURITY ARCHITECT, 2 mg at 03/18/23 140 ondansetron (Zofran) injection 4 mg, 4 mg, intravenous, q6h PRN, JAMA Judd, 4 mg at 03/17/231954 oxyCODONE-acetaminophen (Percocet) 5-325 mg per tablet 1 tablet, 1 tablet, oral, q6h PRN, JAMA Judd, 1 tablet at 03/17/23 0803 pantoprazole (ProtoNix) injection 40 mg, 40 mg, intravenous, BID, Kurt Matos MD, 40 mg at 03/18/23 0811 polyethylene glycol (Glycolax, Miralax) packet 17 g, 17 g, oral, Daily PRN, JAMA Judd thiamine (Vitamin B1) injection 100 mg, 100 mg, intravenous, Daily, Kurt Nguyen MD, 100 mg at 03/18/23 0811 Dietary Orders (From admission, onward) Start Ordered 03/16/23 1508 NPO Diet; Effective now Diet effective now 03/16/23 1509 Estimated Needs: Estimated Energy Needs Total Energy Estimated Needs (kCal): (4175-3996 kcals) Total Estimated Energy Need per Day (kCal/kg): (25-30 kcals/kg) Method for Estimating Needs: adjusted IBW Estimated Protein Needs Total Protein Estimated Needs (g): (68-81g Protein) Total Protein Estimated Needs (g/kg): (1-1.2 g/kg) Method for Estimating Needs: adjusted IBW Estimated Fluid Needs Total Fluid Estimated Needs (mL): (0348-1149 mL fluid) Method for Estimating Needs: 1 mL/kcal Nutrition Diagnosis Nutrition Diagnosis: Nutrition Diagnosis Patient has Nutrition Diagnosis: Yes Diagnosis Status (1): New Nutrition Diagnosis 1: Inadequate oral intake Related to (1): decreased ability to consume sufficient energy As Evidenced by (1): conditions associated with dx and need for NG tube Nutrition Interventions/Recommendations Nutrition Interventions and Recommendations: Nutrition Prescription: Individualized Nutrition Prescription Provided for : 5468-0323 kcals, 68-81g Protein, 5107-5058 mL fluid, provided via PO/NG, once diet advanced. Nutrition Interventions: Food and/or Nutrient Delivery Interventions Interventions: Enteral intake Enteral Intake: Modify composition of enteral nutrition, Modify rate of enteral nutrition Goal: When able to initiate Tube feeding, recommend Osmolite 1.5 @ goal rate of 45 mL/hr to [id number] kcals, 68g Protein, and 823 mL free water. Provide 135 mL water flushes q4hrs to provide adequate hydration. If initiated, start at 10 mL/hr and increase by 10 mL/hr q 8 hrs until goal rate met. Education Documentation No documentation found. Nutrition Monitoring and Evaluation Monitoring/Evaluation: Food/Nutrient Related History Monitoring Monitoring and Evaluation Plan: Enteral and parenteral nutrition intake Enteral and Parenteral Nutrition Intake: Enteral nutrition formula/solution, Enteral nutrition intake Criteria: Monitor for Tube Feeding initiation __ Time Spent/Follow-up: Follow Up Time Spent (min): 45 minutes Last Date of Nutrition Visit: 03/18/23 Nutrition Follow-Up Needed?: 3-5 days Follow up Comment: 03/22/23 * Kurt Matos MD - 03/17/2023 6:13 PM EST Reason For Consult Abdominal pain History Of Present Illness Abbey Garcia is a 32 y.o. woman with a complex medical and surgical history. On review of her Epicavailable medical records as well as questioning Abbey, has had many years of abdominal pain and intolerance to oral intake. She has multiple hospital admissions dating back many years with chronic constipation, evaluation by gastroenterology, and need for nutritional supplementation. She had a diagnostic laparoscopy with liver biopsy in April 2020 at [facility] in evaluation of her chronic abdominal pain and intermittent food intolerance. She had a vertical sleeve gastrectomy at [facility] on September 03, 2020 for morbid obesity. She had a diagnostic laparoscopy on March 20, 2021 at [facility] for chronic pain thought to be secondary to an abdominal wall hernia. No hernia was seen at laparoscopy. She complained of gastroesophageal reflux disease and had her vertical sleeve gastrectomy converted to Tan-en-Y gastric bypass at [facility] on January 29, 2022. On March 06, 2022 she had an upper endoscopy at [facility] for epigastric abdominal pain. Her gastrojejunostomy was congested, edematous, with erosions and friable mucosa. The anastomosis was dilated and she was discharged on twice daily PPI. She had an upper endoscopy at [facility] onJune 23, 2022 for epigastric pain. At that time her gastrojejunostomy appeared normal. She continued to complain of abdominal pain and had an upper endoscopy at the [facility] on October 27, 2022. She was found to have food in her stomach and jejunum. There was no evidence of gastrojejunal ulcer. On November 11, 2022 she had laparoscopic closure of internal hernia at the jejunojejunostomy and ERCP through her gastric remnant for her abdominal pain. She was hospitalized at the [facility] on December 06, 2022 for abdominal pain. She was evaluated by general surgery and was referred to functional medicine. She was referred to Dr. Magaña for median arcuate ligament syndrome. He referred her to Dr. Ramos in pain management for celiac plexus block to evaluate her symptoms. She reported resolution of her food intolerance and was offered a median arcuate ligament release. She underwent successful release of her median arcuate ligament by laparotomy on March 05, 2023 at [facility]. She was discharged to home on March 10, 2023. She reported to me that on Wednesday, March 13, 2023 she began having difficulty tolerating her protein shakes. She tells me that in the last several months of 2022 she did not tolerate oral intake and was getting her nutrition via TPN through a PICC line. In the emergency room she complained of epigastric pain with oral intake. She complained of left upper quadrant pain and was admitted to the hospital. Past Medical History She has a past medical history of Anxiety, Arthritis, Asthma, CPAP (continuous positive airway pressure) dependence, Depression, Dizziness, GERD (gastroesophageal reflux disease), Hypothyroidism, Irritable bowel syndrome, Median arcuate ligament syndrome (CMS/HCC), PCOS (polycystic ovarian syndrome), PONV (postoperative nausea and vomiting), PUD (peptic ulcer disease), and Shortness of breath. She has no past medical history of MASRHAL (acute kidney injury) (CMS/HCC), Autoimmune disorder (CMS/HCC), Bipolar disorder (CMS/HCC), BPH (benign prostatic hyperplasia), Cerebral aneurysm, Cervical cancer ([facility]/HCC), Cervical disc disease, Chronic kidney disease, CKD (chronic kidney disease), Cognitivedecline, Crohn's disease ([facility]/HCC), Dementia ([facility]/HCC), Dysphagia, Endometrial cancer ([facility]/HCC), Esophageal cancer ([facility]/HCC), Esophageal disease, ESRD (end stage renal disease) ([facility]/HCC), Fibromyalgia, primary, Fractures, Gastric cancer ([facility]/HCC), Gender dysphoria, GI (gastrointestinal bleed), Hemodialysis status ([facility]), Hernia, internal, History of peritoneal dialysis, HIV disease ([facility]/HCC), Immunocompromised ([facility]/HCC), Liver disease, Lumbar disc disease, Mastocytosis, MS (multiple sclerosis) ([facility]/HCC), Muscular dystrophy ([facility]/HCC), Myasthenia gravis ([facility]/HCC), Neuromuscular disorder ([facility]/HCC), Ovarian cancer ([facility]/HCC), Pancreatitis, Peptic ulcer disease, Prematurity, PTSD (post-traumatic stress disorder), Schizophrenia ([facility]), Seizure disorder ([facility]), Spinal stenosis, Substanceaddiction ([facility]), Syncope, TIA (transient ischemic attack), Ulcerative colitis ([facility]/HCC), Urinary tract infection, Uterine cancer ([facility]), or Vertigo. Surgical History She has a past surgical history that includes CT angio abdomen pelvis w and or wo IV IV contrast (12/14/2022); Gastric bypass; section, classic; ERCP w/ sphincterotomy and balloon dilation; Appendectomy; and Cholecystectomy. Social History She reports that she has never smoked. She has never used smokeless tobacco. She reports that she does not currently use alcohol. She reports that she does not use drugs. Family History Family History Problem Relation Name Age of Onset Diabetes Mother Jessica Artino Hypertension Mother Jessica Artino Cancer Maternal Grandfather Cedrick Kraus COPD Maternal Grandfather Cedrick Kraus Heart disease Maternal Grandfather Cedrick Kraus Kidney disease Maternal Grandfather Cedrick Kraus Hypertension Maternal Grandmother Grandpa Anesthesia problems Paternal Grandfather Elan Artino Arthritis Paternal Grandfather Elan Artino Hypertension Paternal Grandfather Elan Artino Anesthesia related problems Paternal Grandfather Elan Artino COPD Paternal Grandmother Grandmother Diabetes Paternal Grandmother Grandmother Asthma Brother Adán Artino Allergies Codeine and Nsaids (non-steroidal anti-inflammatory drug) Review of Systems Abbey reports having a normal bowel movement this afternoon. She states that she had been moving her bowels at home since discharge. She denies any nausea without oral intake. Physical Exam General Examination: GENERAL APPEARANCE: alert and oriented x 3, Pleasant and cooperative, No Acute Distress. HEENT: PERRLA. CHEST: normal shape and expansion. ABDOMEN: upper midline scar from prev laparotomy, no hernias present, soft, tender left upper abdomen, no guarding, no CVA tenderness. Last Recorded Vitals Blood pressure 117/77, pulse 60, temperature 36.7 C (98.1 F), temperature source Oral, resp. rate 16, height 1.676 m (5' 6 ), weight 92.7 kg (204 lb 5.9 oz), SpO2 99 %. Relevant Results Interpreted By: Corie Garza, STUDY: FL UPPER GI W DOUBLE CONTRAST W SMALL BOWEL FOLLOW THROUGH; 03/17/2023 4:40 pm INDICATION: Signs/Symptoms:abdominal pain. COMPARISON: None. ACCESSION NUMBER(S): [id number] ORDERING CLINICIAN: TIFFANIE MENDEZ TECHNIQUE: Multiple fluoroscopic spot images were obtained during a single contrast upper GI with KUB. 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 Contrast is seen passing easily from the distal esophagus into the gastric remnant and Tan loop. No evidence for extravasation is noted. No abnormally dilated loops of small bowel are noted. Contrast reaches large bowel within 150 minutes of administration of contrast. IMPRESSION: Postsurgical changes from gastric bypass. No evidence for obstruction.. MACRO: none Signed by: Corie Garza 03/17/2023 5:00 PM Dictation workstation: [id number] Latest Reference Range & Units 03/17/23 07:04 GLUCOSE 65 - 99 mg/dL 122 (H) SODIUM 133 - 145 mmol/L 143 POTASSIUM 3.4 - 5.1 mmol/L 4.3 CHLORIDE 97 - 107 mmol/L 112 (H) Bicarbonate 24 - 31 mmol/L 21 (L) Anion Gap <=19 mmol/L 10 Blood Urea Nitrogen 8 - 25 mg/dL 5 (L) Creatinine 0.40 - 1.60 mg/dL 0.80 EGFR >60 mL/min/1.73m*2 >90 Calcium 8.5 - 10.4 mg/dL 8.1 (L) Albumin 3.5 - 5.0 g/dL 3.3 (L) Alkaline Phosphatase 35 - 125 U/L 61 ALT 5 - 40 U/L 17 AST 5 - 40 U/L 31 Bilirubin Total 0.1 - 1.2 mg/dL 0.2 Total Protein 5.9 - 7.9 g/dL 5.7 (L) WBC 4.4 - 11.3 x10*3/uL 5.0 nRBC 0.0 - 0.0 /100 WBCs 0.0 RBC 4.00 - 5.20 x10*6/uL 3.81 (L) HEMOGLOBIN 12.0 - 16.0 g/dL 11.5 (L) HEMATOCRIT 36.0 - 46.0 % 34.9 (L) MCV 80 - 100 fL 92 MCH 26.0 - 34.0 pg 30.2 MCHC 32.0 - 36.0 g/dL 33.0 RED CELL DISTRIBUTION WIDTH 11.5 - 14.5 % 12.5 Platelets 150 - 450 x10*3/uL 268 (H): Data is abnormally high (L): Data is abnormally low Assessment/Plan Abdominal pain, nausea, chronic intolerance to oral intake. UGI appeared to have normal radiographic Tan-en-Y anatomy but was notable for the entire colon being air filled. Recommendations are to increase ppi to bid. Add mvi to daily routine-either oral or if not tolerated by IV Thiamine daily B12 Agree with EGD by GI service. I spent 90 minutes in the professional and overall care of this patient involving 20 minutes face to face with patient obtaining a history and exam, one hour reviewing her extensive medical records and discussion Dr. Magaña regarding my evaluation and recommendations. Kurt Matos MD * Cheyenne Jansen, SLIM-APPLICATION SECURITY ARCHITECT - 03/17/2023 10:29 AM EST Consults Reason For Consult [place] History Of Present Illness Abbey Garcia is a 32 y.o. female presenting with abdominal pain, nausea, vomiting. Patient has past medical history of gastric bypass that was revised with gastric sleeve. She also has a history of median arcuate ligament release with [facility] was completed per Dr Magaña. Following procedure she did have an ileus and nausea/vomiting. CT a/p yesterday with no acute findings. LFTs are normal. She denies recent endoscopy Past Medical History She has a past medical history of Anxiety, Arthritis, Asthma, CPAP (continuous positive airway pressure) dependence, Depression, Dizziness, GERD (gastroesophageal reflux disease), Hypothyroidism, Irritable bowel syndrome, Median arcuate ligament syndrome (CMS/HCC), PCOS (polycystic ovarian syndrome), PONV (postoperative nausea and vomiting), PUD (peptic ulcer disease), and Shortness of breath. She has no past medical history of MARSHAL (acute kidney injury) (CMS/HCC), Autoimmune disorder (CMS/HCC), Bipolar disorder (CMS/HCC), BPH (benign prostatic hyperplasia), Cerebral aneurysm, Cervical cancer (CMS/HCC), Cervical disc disease, Chronic kidney disease, CKD (chronic kidney disease), Cognitivedecline, Crohn's disease (CMS/HCC), Dementia (CMS/HCC), Dysphagia, Endometrial cancer (CMS/HCC), Esophageal cancer (CMS/HCC), Esophageal disease, ESRD (end stage renal disease) (CMS/HCC), Fibromyalgia, primary, Fractures, Gastric cancer (CMS/HCC), Gender dysphoria, GI (gastrointestinal bleed), Hemodialysis status ([facility]/HCC), Hernia, internal, History of peritoneal dialysis, HIV disease (CMS/HCC), Immunocompromised ([facility]/HCC), Liver disease, Lumbar disc disease, Mastocytosis, MS (multiple sclerosis) (CMS/HCC), Muscular dystrophy (CMS/HCC), Myasthenia gravis (CMS/HCC), Neuromuscular disorder (CMS/HCC), Ovarian cancer (CMS/HCC), Pancreatitis, Peptic ulcer disease, Prematurity, PTSD (post-traumatic stress disorder), Schizophrenia (CMS/HCC), Seizure disorder (CMS/HCC), Spinal stenosis, Substanceaddiction (CMS/HCC), Syncope, TIA (transient ischemic attack), Ulcerative colitis (CMS/HCC), Urinary tract infection, Uterine cancer (CMS/HCC), or Vertigo. Surgical History She has a past surgical history that includes CT angio abdomen pelvis w and or wo IV IV contrast (12/14/2022); Gastric bypass; section, classic; ERCP w/ sphincterotomy and balloon dilation; Appendectomy; and Cholecystectomy. Social History She reports that she has never smoked. She has never used smokeless tobacco. She reports that she does not currently use alcohol. She reports that she does not use drugs. Family History Family History Problem Relation Name Age of Onset Diabetes Mother Jessica Artino Hypertension Mother Jessica Artino Cancer Maternal Grandfather Cedrick Kraus COPD Maternal Grandfather Cedrick Kraus Heart disease Maternal Grandfather Cedrick Kraus Kidney disease Maternal Grandfather Cedrick Kraus Hypertension Maternal Grandmother Grandpa Anesthesia problems Paternal Grandfather Elan Artino Arthritis Paternal Grandfather Elan Artino Hypertension Paternal Grandfather Elan Artino Anesthesia related problems Paternal Grandfather Elan Artino COPD Paternal Grandmother Grandmother Diabetes Paternal Grandmother Grandmother Asthma Brother Adán Artino Allergies Codeine and Nsaids (non-steroidal anti-inflammatory drug) Review of Systems Constitutional: Positive for fatigue and unexpected weight change. Gastrointestinal: Positive for abdominal pain and nausea. Negative for vomiting. Physical Exam Constitutional: Appearance: Normal appearance. HENT: Head: Normocephalic and atraumatic. Mouth/Throat: Mouth: Mucous membranes are moist. Pulmonary: Effort: Pulmonary effort is normal. Abdominal: General: There is no distension. Palpations: Abdomen is soft. Tenderness: There is abdominal tenderness. There is no guarding. Musculoskeletal: General: Normal range of motion. Cervical back: Normal range of motion. Skin: General: Skin is warm and dry. Neurological: General: No focal deficit present. Mental Status: She is alert. Mental status is at baseline. Psychiatric: Mood and Affect: Mood normal. Last Recorded Vitals Blood pressure 116/67, pulse 66, temperature 36.4 C (97.5 F), temperature source Oral, resp. rate 16, height 1.676 m (5' 6 ), weight 92.7 kg (204 lb 5.9 oz), SpO2 100 %. Relevant Results Results for orders placed or performed during the hospital encounter of 03/16/23 (from the past 24 hour(s)) Sars-CoV-2 and Influenza A/B PCR Result Value Ref Range Flu A Result Not Detected Not Detected Flu B Result Not Detected Not Detected Coronavirus 2018, PCR Not Detected Not Detected CBC and Auto Differential Result Value Ref Range WBC 5.0 4.4 - 11.3 x10*3/uL nRBC 0.0 0.0 - 0.0 /100 WBCs RBC 3.54 (L) 4.00 - 5.20 x10*6/uL Hemoglobin 10.8 (L) 12.0 - 16.0 g/dL Hematocrit 33.4 (L) 36.0 - 46.0 % MCV 94 80 - 100 fL MCH 30.5 26.0 - 34.0 pg MCHC 32.3 32.0 - 36.0 g/dL RDW 12.3 11.5 - 14.5 % Platelets 273 150 - 450 x10*3/uL Neutrophils % 48.6 40.0 - 80.0 % Immature Granulocytes %, Automated 0.2 0.0 - 0.9 % Lymphocytes % 33.7 13.0 - 44.0 % Monocytes % 6.2 2.0 - 10.0 % Eosinophils % 9.9 0.0 - 6.0 % Basophils % 1.4 0.0 - 2.0 % Neutrophils Absolute 2.45 1.20 - 7.70 x10*3/uL Immature Granulocytes Absolute, Automated 0.01 0.00 - 0.70 x10*3/uL Lymphocytes Absolute 1.70 1.20 - 4.80 x10*3/uL Monocytes Absolute 0.31 0.10 - 1.00 x10*3/uL Eosinophils Absolute 0.50 0.00 - 0.70 x10*3/uL Basophils Absolute 0.07 0.00 - 0.10 x10*3/uL Comprehensive metabolic panel Result Value Ref Range Glucose 82 65 - 99 mg/dL Sodium 141 133 - 145 mmol/L Potassium 3.7 3.4 - 5.1 mmol/L Chloride 110 (H) 97 - 107 mmol/L Bicarbonate 21 (L) 24 - 31 mmol/L Urea Nitrogen 8 8 - 25 mg/dL Creatinine 0.80 0.40 - 1.60 mg/dL eGFR >90 >60 mL/min/1.73m*2 Calcium 7.9 (L) 8.5 - 10.4 mg/dL Albumin 3.0 (L) 3.5 - 5.0 g/dL Alkaline Phosphatase 58 35 - 125 U/L Total Protein 5.5 (L) 5.9 - 7.9 g/dL AST 32 5 - 40 U/L Bilirubin, Total <0.2 0.1 - 1.2 mg/dL ALT 13 5 - 40 U/L Anion Gap 10 <=19 mmol/L CBC Result Value Ref Range WBC 5.0 4.4 - 11.3 x10*3/uL nRBC 0.0 0.0 - 0.0 /100 WBCs RBC 3.81 (L) 4.00 - 5.20 x10*6/uL Hemoglobin 11.5 (L) 12.0 - 16.0 g/dL Hematocrit 34.9 (L) 36.0 - 46.0 % MCV 92 80 - 100 fL MCH 30.2 26.0 - 34.0 pg MCHC 33.0 32.0 - 36.0 g/dL RDW 12.5 11.5 - 14.5 % Platelets 268 150 - 450 x10*3/uL Comprehensive metabolic panel Result Value Ref Range Glucose 122 (H) 65 - 99 mg/dL Sodium 143 133 - 145 mmol/L Potassium 4.3 3.4 - 5.1 mmol/L Chloride 112 (H) 97 - 107 mmol/L Bicarbonate 21 (L) 24 - 31 mmol/L Urea Nitrogen 5 (L) 8 - 25 mg/dL Creatinine 0.80 0.40 - 1.60 mg/dL eGFR >90 >60 mL/min/1.73m*2 Calcium 8.1 (L) 8.5 - 10.4 mg/dL Albumin 3.3 (L) 3.5 - 5.0 g/dL Alkaline Phosphatase 61 35 - 125 U/L Total Protein 5.7 (L) 5.9 - 7.9 g/dL AST 31 5 - 40 U/L Bilirubin, Total 0.2 0.1 - 1.2 mg/dL ALT 17 5 - 40 U/L Anion Gap 10 <=19 mmol/L CT abdomen pelvis w IV contrast Result Date: 03/16/2023 Interpreted By: Corie Garza, STUDY: CT ABDOMEN PELVIS W IV CONTRAST; 03/16/2023 5:27 pm INDICATION: Signs/Symptoms:abdominal pain - with oral and IV contrast. COMPARISON: None.. ACCESSION NUMBER(S): [id number] ORDERING CLINICIAN: TIFFANIE MENDEZ TECHNIQUE: Oral contrast was not administered. 75 ml Omnipaque [address] of the Abdomen and Pelvis with intravenous contrast was performed. Axial, sagittal and coronal reformatted images were reviewed. All CT examinations areperformed with 1 or more of the following dose reduction techniques: Automated exposure control, adjustment of mA and/or kv according to patient's size, or use of iterative reconstruction techniques.FINDINGS: Lower Chest: Ground-glass densities are noted in the bilateral lung bases dependently. Abdomen: Liver: Multiple well-circumscribed cystic lesions are noted involving both lobes of the liver, the largest on the right measuring approximately 2.0 cm Bile Ducts: Normal caliber. Gallbladder: Nance rgically absent Pancreas: Unremarkable. Spleen: Unremarkable. Adrenals: Normal. Kidneys: Normal. 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 Pelvis: No pelvic masses. Bladder: Unremarkable. Bowel: No bowel wall thickening or abnormal distention to suggest bowel obstruction. Mesenteric Lymph Nodes: No enlarged mesenteric lymph nodes. Peritoneum: Small amount of free fluid is noted adjacent to the spleen and within the pelvis. Vessels: Unremarkable Retroperitoneum: No retroperitoneal adenopathy. Abdominal Wall: Unremarkable. Bones: No acute bony abnormalities. Patchy ground-glass densities in the bilateral lung bases may represent atelectasis. Multiple cystic lesions scattered throughout both lobes of the liver. Postsurgical changes of Tan-en-Y gastric bypass. MACRO: none Signed by: Corie Garza 03/16/2023 5:46 PM Dictation workstation: [id number] XR chest 1 view Result Date: 03/06/2023 Interpreted By: Sara Zarate, STUDY: XR CHEST 1 VIEW; 03/06/2023 7:32 am INDICATION: Signs/Symptoms:post op COMPARISON: None ACCESSION NUMBER(S): [id number] ORDERING CLINICIAN: JASON FOSTER TECHNIQUE: Frontal and lateral chest radiographs. FINDINGS: Enteric tube is seen with the tip overlying the expected location of the stomach. Right upper extremity PICC is seen with the tip overlying the distal SVC. The cardiomediastinal silhouette is unremarkable. The lungs are clear. No pleural effusion is identified. The osseous structures are intact. Appliance positioning as noted above. No consolidation. Signed by: Sara Zarate 03/06/2023 1:48 PM Dictation workstation: [id number] XR chest 1 view Result Date: 03/05/2023 Interpreted By: Baldomero Hendrickson, STUDY: XR CHEST 1 VIEW; 03/05/2023 3:11 pm INDICATION: CLINICAL INFORMATION: Signs/Symptoms:NG tube placement confirmation. COMPARISON: 03/05/2019 at 745 hours ACCESSION NUMBER(S): [id number] ORDERING CLINICIAN: DESMOND TIRADO TECHNIQUE: Portable chest one view. FINDINGS: The cardiac size is indeterminate in view of the AP projection. Nasogastric tube extends into the left upper quadrant. Right-sided PICC line is present with the catheter tip overlying the SVC right atrial junction. No infiltrates or effusions are identified. 1. Status post NG tube insertion with the tube extending into the left upper quadrant. 2. Stable appearance of the PICC line. 3. No infiltrates are identified. MACRO: none Signed by: Baldomero Hendrickson 03/05/2023 3:31 PM Dictation workstation: [id number] XR chest 1 view Result Date: 03/05/2023 Interpreted By: Nya Ahmadi, STUDY: XR CHEST 1 VIEW 03/05/2023 7:51 am INDICATION: Signs/Symptoms:confirm line placement COMPARISON: None available. ACCESSION NUMBER(S): [id number] ORDERING CLINICIAN: SERENA GEORGE TECHNIQUE: AP erect view of the chest FINDINGS: Right arm PICC line terminates in the SVC. There is no pneumothorax. The heart, mediastinum, and lungs are normally visualized. Right arm PICC line terminating in SVC without pneumothorax. No acute cardiopulmonary disease. Signed by: Nya Ahmadi 03/05/2023 7:54 AM Dictation workstation: [id number] Assessment/Plan NV, Epigastric Pain (LFTs are normal. CT a/p normal) -Complicated recent surgical hx with tan en y and gastric sleeve followed by [facility] and vascular intervention earlier this month. She was having a post op ileus at that time. Still on narcotics -Pending Dr Shawna jo. We could consider EGD if symptoms are not improving. Dr Araiza mentions feeding tube, Feeding tube placement would be difficult as well, this would need to be placed surgically given abnormal anatomy -Recommend PPI daily I spent 30 minutes in the professional and overall care of this patient. Associated attestation - Yani Wong MD - 03/17/2023 11:20 PM EST Seen and examined. Agree with assessment and plan. Labs reviewed. Note from Dr. Tato Caceres reviewed later. 32-year-old with complicated past medical history including multiple abdominal surgeries. At this time her nausea seems to be improving. Agree with symptomatic treatment and if not better proceed with EGD in the presence of Dr. Tato Nguyen. * JAMA Smith - 03/16/2023 5:09 PM EST Consults Reason For Consult Medical management History Of Present Illness Abbey Garcia is a 32 y.o. female presenting with abdominal pain. 32-year-old female presents to [facility] for chief complaint of abdominal pain, nausea. Patient has past medical history of gastric bypass that was revised with gastric sleeve. She also has a history of median arcuate ligament release with vascular surgery 03/05/2023. She was discharged on 03/11/2023. She states that 2 days after being discharged she noted experiencing abdominal pain, nausea and could not keep any p.o. intake down. She returned to emergency room close to her home near [place], [place] for further evaluation and was promptly transferred to [facility] for further evaluation and treatment. The hospitalist service is being consulted for medical management of hypothyroidism, asthma, GERD. Past Medical History She has a past medical history of Anxiety, Arthritis, Asthma, CPAP (continuous positive airway pressure) dependence, Depression, Dizziness, GERD (gastroesophageal reflux disease), Hypothyroidism, Irritable bowel syndrome, Median arcuate ligament syndrome (CMS/HCC), PCOS (polycystic ovarian syndrome), PONV (postoperative nausea and vomiting), PUD (peptic ulcer disease), and Shortness of breath. She has no past medical history of MARSHAL (acute kidney injury) (CMS/HCC), Autoimmune disorder (CMS/HCC), Bipolar disorder (CMS/HCC), BPH (benign prostatic hyperplasia), Cerebral aneurysm, Cervical cancer (CMS/HCC), Cervical disc disease, Chronic kidney disease, CKD (chronic kidney disease), Cognitivedecline, Crohn's disease (CMS/HCC), Dementia (CMS/HCC), Dysphagia, Endometrial cancer (CMS/HCC), Esophageal cancer (CMS/HCC), Esophageal disease, ESRD (end stage renal disease) ([facility]/HCC), Fibromyalgia, primary, Fractures, Gastric cancer (CMS/HCC), Gender dysphoria, GI (gastrointestinal bleed), Hemodialysis status ([facility]/HCC), Hernia, internal, History of peritoneal dialysis, HIV disease (CMS/HCC), Immunocompromised ([facility]/HCC), Liver disease, Lumbar disc disease, Mastocytosis, MS (multiple sclerosis) ([facility]/HCC), Muscular dystrophy ([facility]/HCC), Myasthenia gravis ([facility]/HCC), Neuromuscular disorder ([facility]/HCC), Ovarian cancer (CMS/HCC), Pancreatitis, Peptic ulcer disease, Prematurity, PTSD (post-traumatic stress disorder), Schizophrenia (CMS/HCC), Seizure disorder ([facility]/HCC), Spinal stenosis, Substanceaddiction ([facility]/HCC), Syncope, TIA (transient ischemic attack), Ulcerative colitis ([facility]/HCC), Urinary tract infection, Uterine cancer ([facility]/HCC), or Vertigo. Surgical History She has a past surgical history that includes CT angio abdomen pelvis w and or wo IV IV contrast (12/14/2022); Gastric bypass; section, classic; ERCP w/ sphincterotomy and balloon dilation; Appendectomy; and Cholecystectomy. Social History She reports that she has never smoked. She has never used smokeless tobacco. She reports that she does not currently use alcohol. She reports that she does not use drugs. Family History Family History Problem Relation Name Age of Onset Diabetes Mother Jessica Artino Hypertension Mother Jessica Artino Cancer Maternal Grandfather Cedrick Kraus COPD Maternal Grandfather Cedrick Kraus Heart disease Maternal Grandfather Cedrick Kraus Kidney disease Maternal Grandfather Cedrick Kraus Hypertension Maternal Grandmother Grandpa Anesthesia problems Paternal Grandfather Elan Artino Arthritis Paternal Grandfather Elan Artino Hypertension Paternal Grandfather Elan Artino Anesthesia related problems Paternal Grandfather Elan Artino COPD Paternal Grandmother Grandmother Diabetes Paternal Grandmother Grandmother Asthma Brother Adán Artino Allergies Codeine and Nsaids (non-steroidal anti-inflammatory drug) Review of Systems Review of Systems Constitutional: Positive for activity change, appetite change and fatigue. HENT: Negative. Eyes: Negative. Respiratory: Negative. Cardiovascular: Negative. Gastrointestinal: Positive for abdominal pain, nausea and vomiting. Endocrine: Negative. Genitourinary: Negative. Musculoskeletal: Negative. Skin: Negative. Allergic/Immunologic: Negative. Neurological: Negative. All other systems reviewed and are negative. Physical Exam Physical Exam Vitals reviewed. Constitutional: Appearance: She is ill-appearing. HENT: Head: Normocephalic. Nose: Nose normal. Mouth/Throat: Mouth: Mucous membranes are moist. Eyes: Extraocular Movements: Extraocular movements intact. Pupils: Pupils are equal, round, and reactive to light. Cardiovascular: Rate and Rhythm: Normal rate and regular rhythm. Pulses: Normal pulses. Heart sounds: Normal heart sounds. Pulmonary: Effort: Pulmonary effort is normal. Breath sounds: Normal breath sounds. Abdominal: General: Bowel sounds are normal. Palpations: Abdomen is soft. Musculoskeletal: General: Normal range of motion. Cervical back: Normal range of motion. Skin: General: Skin is dry. Capillary Refill: Capillary refill takes less than 2 seconds. Comments: Mid abdominal incision clean and dry intact Neurological: General: No focal deficit present. Mental Status: She is alert. Last Recorded Vitals BP 122/76 Pulse 76 Temp 37 C (98.6 F) (Oral) Resp 17 Wt 92.7 kg (204 lb 5.9 oz) SpO2 99% Relevant Results Results for orders placed or performed during the hospital encounter of 03/16/23 (from the past 24 hour(s)) Sars-CoV-2 and Influenza A/B PCR Result Value Ref Range Flu A Result Not Detected Not Detected Flu B Result Not Detected Not Detected Coronavirus 2018, PCR Not Detected Not Detected CBC and Auto Differential Result Value Ref Range WBC 5.0 4.4 - 11.3 x10*3/uL nRBC 0.0 0.0 - 0.0 /100 WBCs RBC 3.54 (L) 4.00 - 5.20 x10*6/uL Hemoglobin 10.8 (L) 12.0 - 16.0 g/dL Hematocrit 33.4 (L) 36.0 - 46.0 % MCV 94 80 - 100 fL MCH 30.5 26.0 - 34.0 pg MCHC 32.3 32.0 - 36.0 g/dL RDW 12.3 11.5 - 14.5 % Platelets 273 150 - 450 x10*3/uL Neutrophils % 48.6 40.0 - 80.0 % Immature Granulocytes %, Automated 0.2 0.0 - 0.9 % Lymphocytes % 33.7 13.0 - 44.0 % Monocytes % 6.2 2.0 - 10.0 % Eosinophils % 9.9 0.0 - 6.0 % Basophils % 1.4 0.0 - 2.0 % Neutrophils Absolute 2.45 1.20 - 7.70 x10*3/uL Immature Granulocytes Absolute, Automated 0.01 0.00 - 0.70 x10*3/uL Lymphocytes Absolute 1.70 1.20 - 4.80 x10*3/uL Monocytes Absolute 0.31 0.10 - 1.00 x10*3/uL Eosinophils Absolute 0.50 0.00 - 0.70 x10*3/uL Basophils Absolute 0.07 0.00 - 0.10 x10*3/uL Comprehensive metabolic panel Result Value Ref Range Glucose 82 65 - 99 mg/dL Sodium 141 133 - 145 mmol/L Potassium 3.7 3.4 - 5.1 mmol/L Chloride 110 (H) 97 - 107 mmol/L Bicarbonate 21 (L) 24 - 31 mmol/L Urea Nitrogen 8 8 - 25 mg/dL Creatinine 0.80 0.40 - 1.60 mg/dL eGFR >90 >60 mL/min/1.73m*2 Calcium 7.9 (L) 8.5 - 10.4 mg/dL Albumin 3.0 (L) 3.5 - 5.0 g/dL Alkaline Phosphatase 58 35 - 125 U/L Total Protein 5.5 (L) 5.9 - 7.9 g/dL AST 32 5 - 40 U/L Bilirubin, Total <0.2 0.1 - 1.2 mg/dL ALT 13 5 - 40 U/L Anion Gap 10 <=19 mmol/L Assessment/Plan Postop abdominal pain, nausea, vomiting As managed by primary service-vascular N.p.o., antiemetics, as needed Percocet Hypothyroidism Continue home Synthroid, Cytomel Anxiety, depression Continue home Valium, BuSpar, Lexapro, Remeron, Atarax Asthma Continue home as needed nebulizer treatments History of headaches Hold home Topamax for now Monitor headaches Anemia Continue home iron supplementation GERD Continue home Pepcid Thank you for this consult. Will continue to follow. JAMA Smith [facility] Work Phone: [phone]) 984-820402-01-2024 Plan of care note* Care Plan - Andie Lugo RN - 03/18/2023 11:05 AM EST The patient's goals for the shift include Free from pain The clinical goals for the shift include decrease nausea [facility] Work Phone: [phone] 513-333502-01-2024 Nurse Note* Andie Lugo RN - 03/18/2023 7:27 AM EST Assumed care of pt, pt resting quietly in bed, ng to liws , will monitor [facility] Work Phone: [phone] Plan of care note* Care Plan - Eric Campos RN - 03/17/2023 10:17 PM EST The patient's goals for the shift include Free from pain The clinical goals for the shift include decrease nausea Problem: Skin Goal: Decreased wound size/increased tissue granulation at next dressing change Outcome: Progressing Goal: Participates in plan/prevention/treatment measures Outcome: Progressing Goal: Prevent/manage excess moisture Outcome: Progressing Goal: Prevent/minimize sheer/friction injuries Outcome: Progressing Goal: Promote/optimize nutrition Outcome: Progressing Goal: Promote skin healing Outcome: Progressing Problem: Pain Goal: Takes deep breaths with improved pain control throughout the shift Outcome: Progressing Goal: Turns in bed with improved pain control throughout the shift Outcome: Progressing Goal: Walks with improved pain control throughout the shift Outcome: Progressing Goal: Performs ADL's with improved pain control throughout shift Outcome: Progressing Goal: Participates in PT with improved pain control throughout the shift Outcome: Progressing Goal: Free from opioid side effects throughout the shift Outcome: Progressing Goal: Free from acute confusion related to pain meds throughout the shift Outcome: Progressing [facility] Work Phone: [phone] Consult note* Kurt Matos MD - 03/17/2023 6:13 PM EST Reason For Consult Abdominal pain History Of Present Illness Abbey Garcia is a 32 y.o. woman with a complex medical and surgical history. On review of her Epicavailable medical records as well as questioning Abbey, has had many years of abdominal pain and intolerance to oral intake. She has multiple hospital admissions dating back many years with chronic constipation, evaluation by gastroenterology, and need for nutritional supplementation. She had a diagnostic laparoscopy with liver biopsy in April 2020 at [facility] in evaluation of her chronic abdominal pain and intermittent food intolerance. She had a vertical sleeve gastrectomy at [facility] on September 03, 2020 for morbid obesity. She had a diagnostic laparoscopy on March 20, 2021 at [facility] for chronic pain thought to be secondary to an abdominal wall hernia. No hernia was seen at laparoscopy. She complained of gastroesophageal reflux disease and had her vertical sleeve gastrectomy converted to Tan-en-Y gastric bypass at [facility] on January 29, 2022. On March 06, 2022 she had an upper endoscopy at [facility] for epigastric abdominal pain. Her gastrojejunostomy was congested, edematous, with erosions and friable mucosa. The anastomosis was dilated and she was discharged on twice daily PPI. She had an upper endoscopy at [facility] onJune 23, 2022 for epigastric pain. At that time her gastrojejunostomy appeared normal. She continued to complain of abdominal pain and had an upper endoscopy at the [facility] on October 27, 2022. She was found to have food in her stomach and jejunum. There was no evidence of gastrojejunal ulcer. On November 11, 2022 she had laparoscopic closure of internal hernia at the jejunojejunostomy and ERCP through her gastric remnant for her abdominal pain. She was hospitalized at the [facility] on December 06, 2022 for abdominal pain. She was evaluated by general surgery and was referred to functional medicine. She was referred to Dr. Magaña for median arcuate ligament syndrome. He referred her to Dr. Ramos in pain management for celiac plexus block to evaluate her symptoms. She reported resolution of her food intolerance and was offered a median arcuate ligament release. She underwent successful release of her median arcuate ligament by laparotomy on March 05, 2023 at [facility]. She was discharged to home on March 10, 2023. She reported to me that on Wednesday, March 13, 2023 she began having difficulty tolerating her protein shakes. She tells me that in the last several months of 2022 she did not tolerate oral intake and was getting her nutrition via TPN through a PICC line. In the emergency room she complained of epigastric pain with oral intake. She complained of left upper quadrant pain and was admitted to the hospital. Past Medical History She has a past medical history of Anxiety, Arthritis, Asthma, CPAP (continuous positive airway pressure) dependence, Depression, Dizziness, GERD (gastroesophageal reflux disease), Hypothyroidism, Irritable bowel syndrome, Median arcuate ligament syndrome (CMS/HCC), PCOS (polycystic ovarian syndrome), PONV (postoperative nausea and vomiting), PUD (peptic ulcer disease), and Shortness of breath. She has no past medical history of MARSHAL (acute kidney injury) ([facility]), Autoimmune disorder ([facility]/HCC), Bipolar disorder ([facility]/HCC), BPH (benign prostatic hyperplasia), Cerebral aneurysm, Cervical cancer ([facility]/HCC), Cervical disc disease, Chronic kidney disease, CKD (chronic kidney disease), Cognitivedecline, Crohn's disease ([facility]/HCC), Dementia ([facility]/HCC), Dysphagia, Endometrial cancer ([facility]/HCC), Esophageal cancer ([facility]/HCC), Esophageal disease, ESRD (end stage renal disease) ([facility]), Fibromyalgia, primary, Fractures, Gastric cancer ([facility]/HCC), Gender dysphoria, GI (gastrointestinal bleed), Hemodialysis status ([facility]), Hernia, internal, History of peritoneal dialysis, HIV disease ([facility]/HCC), Immunocompromised ([facility]), Liver disease, Lumbar disc disease, Mastocytosis, MS (multiple sclerosis) ([facility]), Muscular dystrophy ([facility]/HCC), Myasthenia gravis ([facility]/HCC), Neuromuscular disorder ([facility]), Ovarian cancer ([facility]), Pancreatitis, Peptic ulcer disease, Prematurity, PTSD (post-traumatic stress disorder), Schizophrenia ([facility]), Seizure disorder ([facility]), Spinal stenosis, Substanceaddiction (CMS/HCC), Syncope, TIA (transient ischemic attack), Ulcerative colitis (CMS/HCC), Urinary tract infection, Uterine cancer (CMS/HCC), or Vertigo. Surgical History She has a past surgical history that includes CT angio abdomen pelvis w and or wo IV IV contrast (12/14/2022); Gastric bypass; section, classic; ERCP w/ sphincterotomy and balloon dilation; Appendectomy; and Cholecystectomy. Social History She reports that she has never smoked. She has never used smokeless tobacco. She reports that she does not currently use alcohol. She reports that she does not use drugs. Family History Family History Problem Relation Name Age of Onset Diabetes Mother Jessica Artino Hypertension Mother Jessica Artino Cancer Maternal Grandfather Cedrick Kraus COPD Maternal Grandfather Cedrick Kraus Heart disease Maternal Grandfather Cedrick Kraus Kidney disease Maternal Grandfather Cedrick Kraus Hypertension Maternal Grandmother Grandpa Anesthesia problems Paternal Grandfather Elan Artino Arthritis Paternal Grandfather Elan Artino Hypertension Paternal Grandfather Elan Artino Anesthesia related problems Paternal Grandfather Elan Artino COPD Paternal Grandmother Grandmother Diabetes Paternal Grandmother Grandmother Asthma Brother Adán Moise Allergies Codeine and Nsaids (non-steroidal anti-inflammatory drug) Review of Systems [place] reports having a normal bowel movement this afternoon. She states that she had been moving her bowels at home since discharge. She denies any nausea without oral intake. Physical Exam General Examination: GENERAL APPEARANCE: alert and oriented x 3, Pleasant and cooperative, No Acute Distress. HEENT: PERRLA. CHEST: normal shape and expansion. ABDOMEN: upper midline scar from prev laparotomy, no hernias present, soft, tender left upper abdomen, no guarding, no CVA tenderness. Last Recorded Vitals Blood pressure 117/77, pulse 60, temperature 36.7 C (98.1 F), temperature source Oral, resp. rate 16, height 1.676 m (5' 6 ), weight 92.7 kg (204 lb 5.9 oz), SpO2 99 %. Relevant Results Interpreted By: Corie Garza, STUDY: FL UPPER GI W DOUBLE CONTRAST W SMALL BOWEL FOLLOW THROUGH; 03/17/2023 4:40 pm INDICATION: Signs/Symptoms:abdominal pain. COMPARISON: None. ACCESSION NUMBER(S): [id number] ORDERING CLINICIAN: TIFFANIE MENDEZ TECHNIQUE: Multiple fluoroscopic spot images were obtained during a single contrast upper GI with KUB. 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 Contrast is seen passing easily from the distal esophagus into the gastric remnant and Tan loop. No evidence for extravasation is noted. No abnormally dilated loops of small bowel are noted. Contrast reaches large bowel within 150 minutes of administration of contrast. IMPRESSION: Postsurgical changes from gastric bypass. No evidence for obstruction.. MACRO: none Signed by: Corie Garza 03/17/2023 5:00 PM Dictation workstation: [id number] Latest Reference Range & Units 03/17/23 07:04 GLUCOSE 65 - 99 mg/dL 122 (H) SODIUM 133 - 145 mmol/L 143 POTASSIUM 3.4 - 5.1 mmol/L 4.3 CHLORIDE 97 - 107 mmol/L 112 (H) Bicarbonate 24 - 31 mmol/L 21 (L) Anion Gap <=19 mmol/L 10 Blood Urea Nitrogen 8 - 25 mg/dL 5 (L) Creatinine 0.40 - 1.60 mg/dL 0.80 EGFR >60 mL/min/1.73m*2 >90 Calcium 8.5 - 10.4 mg/dL 8.1 (L) Albumin 3.5 - 5.0 g/dL 3.3 (L) Alkaline Phosphatase 35 - 125 U/L 61 ALT 5 - 40 U/L 17 AST 5 - 40 U/L 31 Bilirubin Total 0.1 - 1.2 mg/dL 0.2 Total Protein 5.9 - 7.9 g/dL 5.7 (L) WBC 4.4 - 11.3 x10*3/uL 5.0 nRBC 0.0 - 0.0 /100 WBCs 0.0 RBC 4.00 - 5.20 x10*6/uL 3.81 (L) HEMOGLOBIN 12.0 - 16.0 g/dL 11.5 (L) HEMATOCRIT 36.0 - 46.0 % 34.9 (L) MCV 80 - 100 fL 92 MCH 26.0 - 34.0 pg 30.2 MCHC 32.0 - 36.0 g/dL 33.0 RED CELL DISTRIBUTION WIDTH 11.5 - 14.5 % 12.5 Platelets 150 - 450 x10*3/uL 268 (H): Data is abnormally high (L): Data is abnormally low Assessment/Plan Abdominal pain, nausea, chronic intolerance to oral intake. UGI appeared to have normal radiographic Tan-en-Y anatomy but was notable for the entire colon being air filled. Recommendations are to increase ppi to bid. Add mvi to daily routine-either oral or if not tolerated by IV Thiamine daily B12 Agree with EGD by GI service. I spent 90 minutes in the professional and overall care of this patient involving 20 minutes face to face with patient obtaining a history and exam, one hour reviewing her extensive medical records and discussion Dr. Magaña regarding my evaluation and recommendations. Kurt Matos MD [facility] Work Phone: [phone] Nurse Note* Cathy Madera RN - 03/17/2023 6:05 PM EST NG tube re inserted per order. Patient tolerated well. No complications. This nurse requested orderfor xray for placement of NG tube. Order received. Waiting on computer field technician to verify placement per order. Will continue to monitor patient to ensure patient safety. [facility] Work Phone: [phone] Plan of care note* Care Plan - Cathy Madera RN - 03/17/2023 5:07 PM EST Problem: Skin Goal: Decreased wound size/increased tissue granulation at next dressing change Outcome: Progressing Goal: Participates in plan/prevention/treatment measures Outcome: Progressing Goal: Prevent/manage excess moisture Outcome: Progressing Goal: Prevent/minimize sheer/friction injuries Outcome: Progressing Goal: Promote/optimize nutrition Outcome: Progressing Goal: Promote skin healing Outcome: Progressing Problem: Pain Goal: Takes deep breaths with improved pain control throughout the shift Outcome: Progressing Goal: Turns in bed with improved pain control throughout the shift Outcome: Progressing Goal: Walks with improved pain control throughout the shift Outcome: Progressing Goal: Performs ADL's with improved pain control throughout shift Outcome: Progressing Goal: Participates in PT with improved pain control throughout the shift Outcome: Progressing Goal: Free from opioid side effects throughout the shift Outcome: Progressing Goal: Free from acute confusion related to pain meds throughout the shift Outcome: Progressing The patient's goals for the shift include no pain The clinical goals for the shift include to improve pain control, maintain and ensure patient safety. [facility] Work Phone: [phone] Nurse Note* Cathy Madera RN - 03/17/2023 3:10 PM EST This nurse notified Rosa YUN and that patient returned to unit from xray reportsbeing left down at xr by herself throwing up and throwing up NG tube. Patient does not have NG tube upon arriving back to unit. I gave patient zofran before she left unit for xray. Dr. Wong at bedside. This nurse was given orders per to re insert NG tube and supervisor wet end to low suction. Will re attempt with patients consent. [facility] Work Phone: [phone] Nurse Note* Cathy Madera RN - 03/17/2023 12:06 PM EST Patient transported to [facility] for placement of NG. Patient off unit. [facility] Work Phone: [phone] Nurse Note* Cathy Madera RN - 03/17/2023 11:44 AM EST This nurse notified all source intelligence technician that patient had NG tube placed and needed Xray for placement verification. This nurse messaged Rosa YUN to notify her that NG tube was placed and needed separate order for NG tube placement per all source intelligence technician. Order received. Will continue to monitor patient to ensure patient safety. [facility] Work Phone: [phone] History and physical note* Tiffanie Galvan [place], JAMA - 03/17/2023 11:03 AM EST History Of Present Illness This is a 32-year-old female with past medical history of chronic abdominal pain, PCOS, PUD, depression, GERD, IBS, obesity (status post laparoscopic sleeve gastrectomy in August [address] Ku [id number] gastric bypass 01/29/[address] Kat) and median arcuate ligament syndrome who presented to the emergency department for further evaluation of epigastric abdominal pain and nausea. Patie nt follows with GI and has previously been on TPN but tolerated diet after recent surgery. Patient underwent median arcuate ligament release on March 05, [address] Magaña, she was discharged on March 11. She began developing severe abdominal pain and nausea on March 15 and was taken by EMS toher local hospital. She underwent further workup and was discharged home in stable condition from the emergency department, labs and imaging were negative. She then developed similar symptoms on March 09 represented to her local hospital and was transferred to [facility] per Dr. Magaña's request. Patient has longstanding history of abdominal pain, nausea, vomiting and poor oral intake over the last several years requiring admissions. Patient was seen by Dr. Magaña on 03/16/2023, please see his note. She underwent CT chest abdomen pelvis yesterday but was unable to tolerate oral contrast, CT was reviewed by Dr. Magaña. He ordered an upper GI study which we are awaiting to be completed. NG tube was placed today by nursing. Patient remains NPO. On bedside exam, her family is present. She endorses continued mid epigastric pain which ra diates to her left flank. States her nausea has improved with Zofran. Endorses dry heaving at home which lasted 15 to 20 minutes.. Also states when she swallows anything more than clear liquid diet it feels like something is getting stuck. We have consulted GI and are planning to consult Dr. Tato Nguyen for further evaluation. WBC 5.0 on admission H&H 11.5/34.9 BUN 5. Albumin 3.3 Past Medical History Past Medical History: Diagnosis Date Anxiety Arthritis Asthma CPAP (continuous positive airway pressure) dependence Depression Dizziness GERD (gastroesophageal reflux disease) Hypothyroidism Irritable bowel syndrome with constipation Median arcuate ligament syndrome (CMS/HCC) PCOS (polycystic ovarian syndrome) PONV (postoperative nausea and vomiting) PUD (peptic ulcer disease) Shortness of breath Surgical History Past Surgical History: Procedure Laterality Date APPENDECTOMY SECTION, CLASSIC x3 CHOLECYSTECTOMY CT ABDOMEN PELVIS ANGIOGRAM W AND/OR WO IV CONTRAST 12/14/2022 CT ABDOMEN PELVIS ANGIOGRAM W AND/OR WO IV CONTRAST 12/14/2022 ERCP W/ SPHINCTEROTOMY AND BALLOON DILATION GASTRIC BYPASS 01/2022 Social History Social History Socioeconomic History Marital status: Spouse name: Not on file Number of children: Not on file Years of education: Not on file Highest education level: Not on file Occupational History Not on file Tobacco Use Smoking status: Never Smokeless tobacco: Never Substance and Sexual Activity Alcohol use: Not Currently Drug use: Never Sexual activity: Yes Partners: Male control/protection: Female Sterilization Other Topics Concern Not on file Social History Narrative Not on file Social Determinants of Health Financial Resource Strain: Low Risk (03/05/2023) Overall Financial Resource Strain (CARDIA) Difficulty of Paying Living Expenses: Not very hard Food Insecurity: Not on file Transportation Needs: No Transportation Needs (03/05/2023) PRAPARE - Transportation Lack of Transportation (Medical): No Lack of Transportation (Non-Medical): No Physical Activity: Not on file Stress: Not on file Social Connections: Not on file Intimate Partner Violence: Not on file Housing Stability: High Risk (03/08/2023) Housing Stability Vital Sign Unable to Pay for Housing in the Last Year: Yes Number of Places Lived in the Last Year: 1 Unstable Housing in the Last Year: No Family History Family History Problem Relation Name Age of Onset Diabetes Mother Jessica Artino Hypertension Mother Jessica Artino Cancer Maternal Grandfather Cedrick Kraus COPD Maternal Grandfather Cedrick Kraus Heart disease Maternal Grandfather Cedrick Efra Kidney disease Maternal Grandfather Cedrick Efra Hypertension Maternal Grandmother Grandpa Anesthesia problems Paternal Grandfather Elan Artino Arthritis Paternal Grandfather Elan Artino Hypertension Paternal Grandfather Elan Artino Anesthesia related problems Paternal Grandfather Elan Phipps COPD Paternal Grandmother Grandmother Diabetes Paternal Grandmother Grandmother Asthma Brother Adán Phipps Allergies Allergies Allergen Reactions Codeine Nausea/vomiting Nsaids (Non-Steroidal Anti-Inflammatory Drug) Nausea/vomiting Physical exam Constitutional: Alert and oriented to person, place, date/time in no acute distress. HEENT: Atraumatic, normocephalic. PERRL. EOMI. Nares patent. Mucous membranes moist. Neck: Trachea midline. Respiratory: Clear to auscultation. Cardiac: Regular rate and rhythm. No murmurs. Cardiovascular: No edema of the extremities. Pulse exam: Radial and femoral pulses palpable bilateral. Abdominal: Soft, mid epigastric tenderness to palpation, nondistended, bowel sounds present. Musculoskeletal: Moves extremities freely. Dermatological: Clean and dry. Abdominal incision site intact and well coapted/healing, no erythema. Tender upon palpation. No increased calor. Neurological: Alert and oriented to person, place, date/time Psych: Calm, cooperative Relevant Results Results for orders placed or performed during the hospital encounter of 03/16/23 (from the past 24 hour(s)) Sars-CoV-2 and Influenza A/B PCR Result Value Ref Range Flu A Result Not Detected Not Detected Flu B Result Not Detected Not Detected Coronavirus 2018, PCR Not Detected Not Detected CBC and Auto Differential Result Value Ref Range WBC 5.0 4.4 - 11.3 x10*3/uL nRBC 0.0 0.0 - 0.0 /100 WBCs RBC 3.54 (L) 4.00 - 5.20 x10*6/uL Hemoglobin 10.8 (L) 12.0 - 16.0 g/dL Hematocrit 33.4 (L) 36.0 - 46.0 % MCV 94 80 - 100 fL MCH 30.5 26.0 - 34.0 pg MCHC 32.3 32.0 - 36.0 g/dL RDW 12.3 11.5 - 14.5 % Platelets 273 150 - 450 x10*3/uL Neutrophils % 48.6 40.0 - 80.0 % Immature Granulocytes %, Automated 0.2 0.0 - 0.9 % Lymphocytes % 33.7 13.0 - 44.0 % Monocytes % 6.2 2.0 - 10.0 % Eosinophils % 9.9 0.0 - 6.0 % Basophils % 1.4 0.0 - 2.0 % Neutrophils Absolute 2.45 1.20 - 7.70 x10*3/uL Immature Granulocytes Absolute, Automated 0.01 0.00 - 0.70 x10*3/uL Lymphocytes Absolute 1.70 1.20 - 4.80 x10*3/uL Monocytes Absolute 0.31 0.10 - 1.00 x10*3/uL Eosinophils Absolute 0.50 0.00 - 0.70 x10*3/uL Basophils Absolute 0.07 0.00 - 0.10 x10*3/uL Comprehensive metabolic panel Result Value Ref Range Glucose 82 65 - 99 mg/dL Sodium 141 133 - 145 mmol/L Potassium 3.7 3.4 - 5.1 mmol/L Chloride 110 (H) 97 - 107 mmol/L Bicarbonate 21 (L) 24 - 31 mmol/L Urea Nitrogen 8 8 - 25 mg/dL Creatinine 0.80 0.40 - 1.60 mg/dL eGFR >90 >60 mL/min/1.73m*2 Calcium 7.9 (L) 8.5 - 10.4 mg/dL Albumin 3.0 (L) 3.5 - 5.0 g/dL Alkaline Phosphatase 58 35 - 125 U/L Total Protein 5.5 (L) 5.9 - 7.9 g/dL AST 32 5 - 40 U/L Bilirubin, Total <0.2 0.1 - 1.2 mg/dL ALT 13 5 - 40 U/L Anion Gap 10 <=19 mmol/L CBC Result Value Ref Range WBC 5.0 4.4 - 11.3 x10*3/uL nRBC 0.0 0.0 - 0.0 /100 WBCs RBC 3.81 (L) 4.00 - 5.20 x10*6/uL Hemoglobin 11.5 (L) 12.0 - 16.0 g/dL Hematocrit 34.9 (L) 36.0 - 46.0 % MCV 92 80 - 100 fL MCH 30.2 26.0 - 34.0 pg MCHC 33.0 32.0 - 36.0 g/dL RDW 12.5 11.5 - 14.5 % Platelets 268 150 - 450 x10*3/uL Comprehensive metabolic panel Result Value Ref Range Glucose 122 (H) 65 - 99 mg/dL Sodium 143 133 - 145 mmol/L Potassium 4.3 3.4 - 5.1 mmol/L Chloride 112 (H) 97 - 107 mmol/L Bicarbonate 21 (L) 24 - 31 mmol/L Urea Nitrogen 5 (L) 8 - 25 mg/dL Creatinine 0.80 0.40 - 1.60 mg/dL eGFR >90 >60 mL/min/1.73m*2 Calcium 8.1 (L) 8.5 - 10.4 mg/dL Albumin 3.3 (L) 3.5 - 5.0 g/dL Alkaline Phosphatase 61 35 - 125 U/L Total Protein 5.7 (L) 5.9 - 7.9 g/dL AST 31 5 - 40 U/L Bilirubin, Total 0.2 0.1 - 1.2 mg/dL ALT 17 5 - 40 U/L Anion Gap 10 <=19 mmol/L CT abdomen pelvis w IV contrast Result Date: 03/16/2023 Interpreted By: Corie Garza, STUDY: CT ABDOMEN PELVIS W IV CONTRAST; 03/16/2023 5:27 pm INDICATION: Signs/Symptoms:abdominal pain - with oral and IV contrast. COMPARISON: None.. ACCESSION NUMBER(S): [id number] ORDERING CLINICIAN: TIFFANIE MENDEZ TECHNIQUE: Oral contrast was not administered. 75 ml Omnipaque [address] of the Abdomen and Pelvis with intravenous contrast was performed. Axial, sagittal and coronal reformatted images were reviewed. All CT examinations areperformed with 1 or more of the following dose reduction techniques: Automated exposure control, adjustment of mA and/or kv according to patient's size, or use of iterative reconstruction techniques.FINDINGS: Lower Chest: Ground-glass densities are noted in the bilateral lung bases dependently. Abdomen: Liver: Multiple well-circumscribed cystic lesions are noted involving both lobes of the liver, the largest on the right measuring approximately 2.0 cm Bile Ducts: Normal caliber. Gallbladder: Nance rgically absent Pancreas: Unremarkable. Spleen: Unremarkable. Adrenals: Normal. Kidneys: Normal. 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 Pelvis: No pelvic masses. Bladder: Unremarkable. Bowel: No bowel wall thickening or abnormal distention to suggest bowel obstruction. Mesenteric Lymph Nodes: No enlarged mesenteric lymph nodes. Peritoneum: Small amount of free fluid is noted adjacent to the spleen and within the pelvis. Vessels: Unremarkable Retroperitoneum: No retroperitoneal adenopathy. Abdominal Wall: Unremarkable. Bones: No acute bony abnormalities. Patchy ground-glass densities in the bilateral lung bases may represent atelectasis. Multiple cystic lesions scattered throughout both lobes of the liver. Postsurgical changes of Tan-en-Y gastric bypass. MACRO: none Signed by: Corie Garza 03/16/2023 5:46 PM Dictation workstation: [id number] XR chest 1 view Result Date: 03/06/2023 Interpreted By: Sara Zarate, STUDY: XR CHEST 1 VIEW; 03/06/2023 7:32 am INDICATION: Signs/Symptoms:post op COMPARISON: None ACCESSION NUMBER(S): [id number] ORDERING CLINICIAN: JASON FOSTER TECHNIQUE: Frontal and lateral chest radiographs. FINDINGS: Enteric tube is seen with the tip overlying the expected location of the stomach. Right upper extremity PICC is seen with the tip overlying the distal SVC. The cardiomediastinal silhouette is unremarkable. The lungs are clear. No pleural effusion is identified. The osseous structures are intact. Appliance positioning as noted above. No consolidation. Signed by: Sara Zarate 03/06/2023 1:48 PM Dictation workstation: [id number] XR chest 1 view Result Date: 03/05/2023 Interpreted By: Baldomero Hendrickson, STUDY: XR CHEST 1 VIEW; 03/05/2023 3:11 pm INDICATION: CLINICAL INFORMATION: Signs/Symptoms:NG tube placement confirmation. COMPARISON: 03/05/2019 at 745 hours ACCESSION NUMBER(S): [id number] ORDERING CLINICIAN: DESMOND TIRADO TECHNIQUE: Portable chest one view. FINDINGS: The cardiac size is indeterminate in view of the AP projection. Nasogastric tube extends into the left upper quadrant. Right-sided PICC line is present with the catheter tip overlying the SVC right atrial junction. No infiltrates or effusions are identified. 1. Status post NG tube insertion with the tube extending into the left upper quadrant. 2. Stable appearance of the PICC line. 3. No infiltrates are identified. MACRO: none Signed by: Baldomero Hendrickson 03/05/2023 3:31 PM Dictation workstation: [id number] XR chest 1 view Result Date: 03/05/2023 Interpreted By: Nya Ahmadi, STUDY: XR CHEST 1 VIEW 03/05/2023 7:51 am INDICATION: Signs/Symptoms:confirm line placement COMPARISON: None available. ACCESSION NUMBER(S): [id number] ORDERING CLINICIAN: SERENA GEORGE TECHNIQUE: AP erect view of the chest FINDINGS: Right arm PICC line terminates in the SVC. There is no pneumothorax. The heart, mediastinum, and lungs are normally visualized. Right arm PICC line terminating in SVC without pneumothorax. No acute cardiopulmonary disease. Signed by: Nya Ahmadi 03/05/2023 7:54 AM Dictation workstation: [id number] Assessment and Plan -Abdominal pain/nausea -Median arcuate ligament syndrome, status post ligament release on 03/05/2023 -Obesity: status post laparoscopic sleeve gastrectomy in August [address] Ku and Tan-en-Y gastric bypass 01/29/[address] Kat 1. Abdominal pain/nausea: CT abdomen pelvis with IV contrast reviewed by Dr. Magaña. Plan for upper GI series. - NG tube placement - Continue n.p.o. - Morning labs - Zofran IV for nausea - Percocet p.o. for pain - GI consult, recommend possible EGD if symptoms do not improve. - Consult Dr. Tato Nguyen for further evaluation and input -Hospitalist on consult for medical comanagement Asthma: Continue home medications Hypothyroidism: On Synthroid and Cytomel Anemia: Continue home iron supplementation GERD: Continue Pepcid [facility] Work Phone: [phone] History and physical note* JAMA Judd - 03/17/2023 11:03 AM EST History Of Present Illness This is a 32-year-old female with past medical history of chronic abdominal pain, PCOS, PUD, depression, GERD, IBS, obesity (status post laparoscopic sleeve gastrectomy in August [address] Ku [id number] gastric bypass 01/29/[address] Kat) and median arcuate ligament syndrome who presented to the emergency department for further evaluation of epigastric abdominal pain and nausea. Patie nt follows with GI and has previously been on TPN but tolerated diet after recent surgery. Patient underwent median arcuate ligament release on March 05, [address] Magaña, she was discharged on March 11. She began developing severe abdominal pain and nausea on March 15 and was taken by EMS toher local hospital. She underwent further workup and was discharged home in stable condition from the emergency department, labs and imaging were negative. She then developed similar symptoms on March 09 represented to her local hospital and was transferred to [facility] per Dr. Magaña's request. Patient has longstanding history of abdominal pain, nausea, vomiting and poor oral intake over the last several years requiring admissions. Patient was seen by Dr. Magaña on 03/16/2023, please see his note. She underwent CT chest abdomen pelvis yesterday but was unable to tolerate oral contrast, CT was reviewed by Dr. Magaña. He ordered an upper GI study which we are awaiting to be completed. NG tube was placed today by nursing. Patient remains NPO. On bedside exam, her family is present. She endorses continued mid epigastric pain which ra diates to her left flank. States her nausea has improved with Zofran. Endorses dry heaving at home which lasted 15 to 20 minutes.. Also states when she swallows anything more than clear liquid diet it feels like something is getting stuck. We have consulted GI and are planning to consult Dr. Tato Nguyen for further evaluation. WBC 5.0 on admission H&H 11.5/34.9 BUN 5. Albumin 3.3 Past Medical History Past Medical History: Diagnosis Date Anxiety Arthritis Asthma CPAP (continuous positive airway pressure) dependence Depression Dizziness GERD (gastroesophageal reflux disease) Hypothyroidism Irritable bowel syndrome with constipation Median arcuate ligament syndrome (CMS/HCC) PCOS (polycystic ovarian syndrome) PONV (postoperative nausea and vomiting) PUD (peptic ulcer disease) Shortness of breath Surgical History Past Surgical History: Procedure Laterality Date APPENDECTOMY SECTION, CLASSIC x3 CHOLECYSTECTOMY CT ABDOMEN PELVIS ANGIOGRAM W AND/OR WO IV CONTRAST 12/14/2022 CT ABDOMEN PELVIS ANGIOGRAM W AND/OR WO IV CONTRAST 12/14/2022 ERCP W/ SPHINCTEROTOMY AND BALLOON DILATION GASTRIC BYPASS 01/2022 Social History Social History Socioeconomic History Marital status: Spouse name: Not on file Number of children: Not on file Years of education: Not on file Highest education level: Not on file Occupational History Not on file Tobacco Use Smoking status: Never Smokeless tobacco: Never Substance and Sexual Activity Alcohol use: Not Currently Drug use: Never Sexual activity: Yes Partners: Male control/protection: Female Sterilization Other Topics Concern Not on file Social History Narrative Not on file Social Determinants of Health Financial Resource Strain: Low Risk (03/05/2023) Overall Financial Resource Strain (CARDIA) Difficulty of Paying Living Expenses: Not very hard Food Insecurity: Not on file Transportation Needs: No Transportation Needs (03/05/2023) PRAPARE - Transportation Lack of Transportation (Medical): No Lack of Transportation (Non-Medical): No Physical Activity: Not on file Stress: Not on file Social Connections: Not on file Intimate Partner Violence: Not on file Housing Stability: High Risk (03/08/2023) Housing Stability Vital Sign Unable to Pay for Housing in the Last Year: Yes Number of Places Lived in the Last Year: 1 Unstable Housing in the Last Year: No Family History Family History Problem Relation Name Age of Onset Diabetes Mother Jessica Artino Hypertension Mother Jessica Artino Cancer Maternal Grandfather Cedrick Kraus COPD Maternal Grandfather Cedrick Kraus Heart disease Maternal Grandfather Cedrick Kraus Kidney disease Maternal Grandfather Cedrick Kraus Hypertension Maternal Grandmother Grandpa Anesthesia problems Paternal Grandfather Elan Artino Arthritis Paternal Grandfather Elan Artino Hypertension Paternal Grandfather Elan Artino Anesthesia related problems Paternal Grandfather Elan Artino COPD Paternal Grandmother Grandmother Diabetes Paternal Grandmother Grandmother Asthma Brother Adán Artino Allergies Allergies Allergen Reactions Codeine Nausea/vomiting Nsaids (Non-Steroidal Anti-Inflammatory Drug) Nausea/vomiting Physical exam Constitutional: Alert and oriented to person, place, date/time in no acute distress. HEENT: Atraumatic, normocephalic. PERRL. EOMI. Nares patent. Mucous membranes moist. Neck: Trachea midline. Respiratory: Clear to auscultation. Cardiac: Regular rate and rhythm. No murmurs. Cardiovascular: No edema of the extremities. Pulse exam: Radial and femoral pulses palpable bilateral. Abdominal: Soft, mid epigastric tenderness to palpation, nondistended, bowel sounds present. Musculoskeletal: Moves extremities freely. Dermatological: Clean and dry. Abdominal incision site intact and well coapted/healing, no erythema. Tender upon palpation. No increased calor. Neurological: Alert and oriented to person, place, date/time Psych: Calm, cooperative Relevant Results Results for orders placed or performed during the hospital encounter of 03/16/23 (from the past 24 hour(s)) Sars-CoV-2 and Influenza A/B PCR Result Value Ref Range Flu A Result Not Detected Not Detected Flu B Result Not Detected Not Detected Coronavirus 2019, PCR Not Detected Not Detected CBC and Auto Differential Result Value Ref Range WBC 5.0 4.4 - 11.3 x10*3/uL nRBC 0.0 0.0 - 0.0 /100 WBCs RBC 3.54 (L) 4.00 - 5.20 x10*6/uL Hemoglobin 10.8 (L) 12.0 - 16.0 g/dL Hematocrit 33.4 (L) 36.0 - 46.0 % MCV 94 80 - 100 fL MCH 30.5 26.0 - 34.0 pg MCHC 32.3 32.0 - 36.0 g/dL RDW 12.3 11.5 - 14.5 % Platelets 273 150 - 450 x10*3/uL Neutrophils % 48.6 40.0 - 80.0 % Immature Granulocytes %, Automated 0.2 0.0 - 0.9 % Lymphocytes % 33.7 13.0 - 44.0 % Monocytes % 6.2 2.0 - 10.0 % Eosinophils % 9.9 0.0 - 6.0 % Basophils % 1.4 0.0 - 2.0 % Neutrophils Absolute 2.45 1.20 - 7.70 x10*3/uL Immature Granulocytes Absolute, Automated 0.01 0.00 - 0.70 x10*3/uL Lymphocytes Absolute 1.70 1.20 - 4.80 x10*3/uL Monocytes Absolute 0.31 0.10 - 1.00 x10*3/uL Eosinophils Absolute 0.50 0.00 - 0.70 x10*3/uL Basophils Absolute 0.07 0.00 - 0.10 x10*3/uL Comprehensive metabolic panel Result Value Ref Range Glucose 82 65 - 99 mg/dL Sodium 141 133 - 145 mmol/L Potassium 3.7 3.4 - 5.1 mmol/L Chloride 110 (H) 97 - 107 mmol/L Bicarbonate 21 (L) 24 - 31 mmol/L Urea Nitrogen 8 8 - 25 mg/dL Creatinine 0.80 0.40 - 1.60 mg/dL eGFR >90 >60 mL/min/1.73m*2 Calcium 7.9 (L) 8.5 - 10.4 mg/dL Albumin 3.0 (L) 3.5 - 5.0 g/dL Alkaline Phosphatase 58 35 - 125 U/L Total Protein 5.5 (L) 5.9 - 7.9 g/dL AST 32 5 - 40 U/L Bilirubin, Total <0.2 0.1 - 1.2 mg/dL ALT 13 5 - 40 U/L Anion Gap 10 <=19 mmol/L CBC Result Value Ref Range WBC 5.0 4.4 - 11.3 x10*3/uL nRBC 0.0 0.0 - 0.0 /100 WBCs RBC 3.81 (L) 4.00 - 5.20 x10*6/uL Hemoglobin 11.5 (L) 12.0 - 16.0 g/dL Hematocrit 34.9 (L) 36.0 - 46.0 % MCV 92 80 - 100 fL MCH 30.2 26.0 - 34.0 pg MCHC 33.0 32.0 - 36.0 g/dL RDW 12.5 11.5 - 14.5 % Platelets 268 150 - 450 x10*3/uL Comprehensive metabolic panel Result Value Ref Range Glucose 122 (H) 65 - 99 mg/dL Sodium 143 133 - 145 mmol/L Potassium 4.3 3.4 - 5.1 mmol/L Chloride 112 (H) 97 - 107 mmol/L Bicarbonate 21 (L) 24 - 31 mmol/L Urea Nitrogen 5 (L) 8 - 25 mg/dL Creatinine 0.80 0.40 - 1.60 mg/dL eGFR >90 >60 mL/min/1.73m*2 Calcium 8.1 (L) 8.5 - 10.4 mg/dL Albumin 3.3 (L) 3.5 - 5.0 g/dL Alkaline Phosphatase 61 35 - 125 U/L Total Protein 5.7 (L) 5.9 - 7.9 g/dL AST 31 5 - 40 U/L Bilirubin, Total 0.2 0.1 - 1.2 mg/dL ALT 17 5 - 40 U/L Anion Gap 10 <=19 mmol/L CT abdomen pelvis w IV contrast Result Date: 03/16/2023 Interpreted By: Corie Garza, STUDY: CT ABDOMEN PELVIS W IV CONTRAST; 03/16/2023 5:27 pm INDICATION: Signs/Symptoms:abdominal pain - with oral and IV contrast. COMPARISON: None.. ACCESSION NUMBER(S): [id number] ORDERING CLINICIAN: TIFFANIE MENDEZ TECHNIQUE: Oral contrast was not administered. 75 ml Omnipaque [address] of the Abdomen and Pelvis with intravenous contrast was performed. Axial, sagittal and coronal reformatted images were reviewed. All CT examinations areperformed with 1 or more of the following dose reduction techniques: Automated exposure control, adjustment of mA and/or kv according to patient's size, or use of iterative reconstruction techniques.FINDINGS: Lower Chest: Ground-glass densities are noted in the bilateral lung bases dependently. Abdomen: Liver: Multiple well-circumscribed cystic lesions are noted involving both lobes of the liver, the largest on the right measuring approximately 2.0 cm Bile Ducts: Normal caliber. Gallbladder: Nance rgically absent Pancreas: Unremarkable. Spleen: Unremarkable. Adrenals: Normal. Kidneys: Normal. 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 Pelvis: No pelvic masses. Bladder: Unremarkable. Bowel: No bowel wall thickening or abnormal distention to suggest bowel obstruction. Mesenteric Lymph Nodes: No enlarged mesenteric lymph nodes. Peritoneum: Small amount of free fluid is noted adjacent to the spleen and within the pelvis. Vessels: Unremarkable Retroperitoneum: No retroperitoneal adenopathy. Abdominal Wall: Unremarkable. Bones: No acute bony abnormalities. Patchy ground-glass densities in the bilateral lung bases may represent atelectasis. Multiple cystic lesions scattered throughout both lobes of the liver. Postsurgical changes of Tan-en-Y gastric bypass. MACRO: none Signed by: Corie Garza 03/16/2023 5:46 PM Dictation workstation: [id number] XR chest 1 view Result Date: 03/06/2023 Interpreted By: Sara Zarate, STUDY: XR CHEST 1 VIEW; 03/06/2023 7:32 am INDICATION: Signs/Symptoms:post op COMPARISON: None ACCESSION NUMBER(S): [id number] ORDERING CLINICIAN: JASON FOSTER TECHNIQUE: Frontal and lateral chest radiographs. FINDINGS: Enteric tube is seen with the tip overlying the expected location of the stomach. Right upper extremity PICC is seen with the tip overlying the distal SVC. The cardiomediastinal silhouette is unremarkable. The lungs are clear. No pleural effusion is identified. The osseous structures are intact. Appliance positioning as noted above. No consolidation. Signed by: Sara Zarate 03/06/2023 1:48 PM Dictation workstation: [id number] XR chest 1 view Result Date: 03/05/2023 Interpreted By: Baldomero Hendrickson, STUDY: XR CHEST 1 VIEW; 03/05/2023 3:11 pm INDICATION: CLINICAL INFORMATION: Signs/Symptoms:NG tube placement confirmation. COMPARISON: 03/05/2019 at 745 hours ACCESSION NUMBER(S): [id number] ORDERING CLINICIAN: DESMOND TIRADO TECHNIQUE: Portable chest one view. FINDINGS: The cardiac size is indeterminate in view of the AP projection. Nasogastric tube extends into the left upper quadrant. Right-sided PICC line is present with the catheter tip overlying the SVC right atrial junction. No infiltrates or effusions are identified. 1. Status post NG tube insertion with the tube extending into the left upper quadrant. 2. Stable appearance of the PICC line. 3. No infiltrates are identified. MACRO: none Signed by: Baldomero Hendrickson 03/05/2023 3:31 PM Dictation workstation: [id number] XR chest 1 view Result Date: 03/05/2023 Interpreted By: Nya Ahmadi, STUDY: XR CHEST 1 VIEW 03/05/2023 7:51 am INDICATION: Signs/Symptoms:confirm line placement COMPARISON: None available. ACCESSION NUMBER(S): [id number] ORDERING CLINICIAN: SERENA GEORGE TECHNIQUE: AP erect view of the chest FINDINGS: Right arm PICC line terminates in the SVC. There is no pneumothorax. The heart, mediastinum, and lungs are normally visualized. Right arm PICC line terminating in SVC without pneumothorax. No acute cardiopulmonary disease. Signed by: Nya Ahmadi 03/05/2023 7:54 AM Dictation workstation: [id number] Assessment and Plan -Abdominal pain/nausea -Median arcuate ligament syndrome, status post ligament release on 03/05/2023 -Obesity: status post laparoscopic sleeve gastrectomy in August [address] Ku and Tan-en-Y gastric bypass 01/29/[address] Kat 1. Abdominal pain/nausea: CT abdomen pelvis with IV contrast reviewed by Dr. Magaña. Plan for upper GI series. - NG tube placement - Continue n.p.o. - Morning labs - Zofran IV for nausea - Percocet p.o. for pain - GI consult, recommend possible EGD if symptoms do not improve. - Consult Dr. Tato Nguyen for further evaluation and input -Hospitalist on consult for medical comanagement Asthma: Continue home medications Hypothyroidism: On Synthroid and Cytomel Anemia: Continue home iron supplementation GERD: Continue Pepcid documented in this [facility] Work Phone: 1(154) 585-107901-31-2024 Nurse Note* Cathy Madera RN - 03/17/2023 10:58 AM EST Patient is ordered NPO this nurse received verbal orders with readback to administer oral medication per Rosa YUN at bedside. Will continue to monitor patient to ensure patient safety. [facility] Work Phone: 1(277) 265-257601-31-2024 Nurse Note* Cathy Madera RN - 03/17/2023 10:44 AM EST This nurse called Lizz YUN for order clairification for Valium 5 MG IV. This nurse notified Lizz YUN that patient received Valium 5 MG PO at 613 per MAR and nurse to nurse. This nurse was given telephone orders with read back to administer Valium 5 MG IV once. Will continue to monitor patient to ensure patient safety. [facility] Work Phone: [phone]) 882-512701-31-2024 Consult note* JAMA Petersen - 03/17/2023 10:29 AM EST Consults Reason For Consult [place] History Of Present Illness Abbey Garcia is a 32 y.o. female presenting with abdominal pain, nausea, vomiting. Patient has past medical history of gastric bypass that was revised with gastric sleeve. She also has a history of median arcuate ligament release with vascular surgery 03/05/2023, [facility]. This was completed per Dr Magaña. Following procedure she did have an ileus and nausea/vomiting. CT a/p yesterday with no acute findings. LFTs are normal. She denies recent endoscopy Past Medical History She has a past medical history of Anxiety, Arthritis, Asthma, CPAP (continuous positive airway pressure) dependence, Depression, Dizziness, GERD (gastroesophageal reflux disease), Hypothyroidism, Irritable bowel syndrome, Median arcuate ligament syndrome (CMS/HCC), PCOS (polycystic ovarian syndrome), PONV (postoperative nausea and vomiting), PUD (peptic ulcer disease), and Shortness of breath. She has no past medical history of MARSHAL (acute kidney injury) (CMS/HCC), Autoimmune disorder (CMS/HCC), Bipolar disorder (CMS/HCC), BPH (benign prostatic hyperplasia), Cerebral aneurysm, Cervical cancer (CMS/HCC), Cervical disc disease, Chronic kidney disease, CKD (chronic kidney disease), Cognitivedecline, Crohn's disease (CMS/HCC), Dementia (CMS/HCC), Dysphagia, Endometrial cancer (CMS/HCC), Esophageal cancer (CMS/HCC), Esophageal disease, ESRD (end stage renal disease) (CMS/HCC), Fibromyalgia, primary, Fractures, Gastric cancer (CMS/HCC), Gender dysphoria, GI (gastrointestinal bleed), Hemodialysis status ([facility]/HCC), Hernia, internal, History of peritoneal dialysis, HIV disease (CMS/HCC), Immunocompromised (CMS/HCC), Liver disease, Lumbar disc disease, Mastocytosis, MS (multiple sclerosis) (CMS/HCC), Muscular dystrophy (CMS/HCC), Myasthenia gravis (CMS/HCC), Neuromuscular disorder (CMS/HCC), Ovarian cancer (CMS/HCC), Pancreatitis, Peptic ulcer disease, Prematurity, PTSD (post-traumatic stress disorder), Schizophrenia (CMS/HCC), Seizure disorder (CMS/HCC), Spinal stenosis, Substanceaddiction (CMS/HCC), Syncope, TIA (transient ischemic attack), Ulcerative colitis (CMS/HCC), Urinary tract infection, Uterine cancer (CMS/HCC), or Vertigo. Surgical History She has a past surgical history that includes CT angio abdomen pelvis w and or wo IV IV contrast (12/14/2022); Gastric bypass; section, classic; ERCP w/ sphincterotomy and balloon dilation; Appendectomy; and Cholecystectomy. Social History She reports that she has never smoked. She has never used smokeless tobacco. She reports that she does not currently use alcohol. She reports that she does not use drugs. Family History Family History Problem Relation Name Age of Onset Diabetes Mother Jessica Phipps Hypertension Mother Jessica Galeasino Cancer Maternal Grandfather Cedrick Kraus COPD Maternal Grandfather Cedrick Kraus Heart disease Maternal Grandfather Cedrick Kraus Kidney disease Maternal Grandfather Cedrick Kraus Hypertension Maternal Grandmother Grandpa Anesthesia problems Paternal Grandfather Elan Artino Arthritis Paternal Grandfather Elan Artino Hypertension Paternal Grandfather Elan Artino Anesthesia related problems Paternal Grandfather Elan Artino COPD Paternal Grandmother Grandmother Diabetes Paternal Grandmother Grandmother Asthma Brother Adán Artino Allergies Codeine and Nsaids (non-steroidal anti-inflammatory drug) Review of Systems Constitutional: Positive for fatigue and unexpected weight change. Gastrointestinal: Positive for abdominal pain and nausea. Negative for vomiting. Physical Exam Constitutional: Appearance: Normal appearance. HENT: Head: Normocephalic and atraumatic. Mouth/Throat: Mouth: Mucous membranes are moist. Pulmonary: Effort: Pulmonary effort is normal. Abdominal: General: There is no distension. Palpations: Abdomen is soft. Tenderness: There is abdominal tenderness. There is no guarding. Musculoskeletal: General: Normal range of motion. Cervical back: Normal range of motion. Skin: General: Skin is warm and dry. Neurological: General: No focal deficit present. Mental Status: She is alert. Mental status is at baseline. Psychiatric: Mood and Affect: Mood normal. Last Recorded Vitals Blood pressure 116/67, pulse 66, temperature 36.4 C (97.5 F), temperature source Oral, resp. rate 16, height 1.676 m (5' 6 ), weight 92.7 kg (204 lb 5.9 oz), SpO2 100 %. Relevant Results Results for orders placed or performed during the hospital encounter of 03/16/23 (from the past 24 hour(s)) Sars-CoV-2 and Influenza A/B PCR Result Value Ref Range Flu A Result Not Detected Not Detected Flu B Result Not Detected Not Detected Coronavirus 2019, PCR Not Detected Not Detected CBC and Auto Differential Result Value Ref Range WBC 5.0 4.4 - 11.3 x10*3/uL nRBC 0.0 0.0 - 0.0 /100 WBCs RBC 3.54 (L) 4.00 - 5.20 x10*6/uL Hemoglobin 10.8 (L) 12.0 - 16.0 g/dL Hematocrit 33.4 (L) 36.0 - 46.0 % MCV 94 80 - 100 fL MCH 30.5 26.0 - 34.0 pg MCHC 32.3 32.0 - 36.0 g/dL RDW 12.3 11.5 - 14.5 % Platelets 273 150 - 450 x10*3/uL Neutrophils % 48.6 40.0 - 80.0 % Immature Granulocytes %, Automated 0.2 0.0 - 0.9 % Lymphocytes % 33.7 13.0 - 44.0 % Monocytes % 6.2 2.0 - 10.0 % Eosinophils % 9.9 0.0 - 6.0 % Basophils % 1.4 0.0 - 2.0 % Neutrophils Absolute 2.45 1.20 - 7.70 x10*3/uL Immature Granulocytes Absolute, Automated 0.01 0.00 - 0.70 x10*3/uL Lymphocytes Absolute 1.70 1.20 - 4.80 x10*3/uL Monocytes Absolute 0.31 0.10 - 1.00 x10*3/uL Eosinophils Absolute 0.50 0.00 - 0.70 x10*3/uL Basophils Absolute 0.07 0.00 - 0.10 x10*3/uL Comprehensive metabolic panel Result Value Ref Range Glucose 82 65 - 99 mg/dL Sodium 141 133 - 145 mmol/L Potassium 3.7 3.4 - 5.1 mmol/L Chloride 110 (H) 97 - 107 mmol/L Bicarbonate 21 (L) 24 - 31 mmol/L Urea Nitrogen 8 8 - 25 mg/dL Creatinine 0.80 0.40 - 1.60 mg/dL eGFR >90 >60 mL/min/1.73m*2 Calcium 7.9 (L) 8.5 - 10.4 mg/dL Albumin 3.0 (L) 3.5 - 5.0 g/dL Alkaline Phosphatase 58 35 - 125 U/L Total Protein 5.5 (L) 5.9 - 7.9 g/dL AST 32 5 - 40 U/L Bilirubin, Total <0.2 0.1 - 1.2 mg/dL ALT 13 5 - 40 U/L Anion Gap 10 <=19 mmol/L CBC Result Value Ref Range WBC 5.0 4.4 - 11.3 x10*3/uL nRBC 0.0 0.0 - 0.0 /100 WBCs RBC 3.81 (L) 4.00 - 5.20 x10*6/uL Hemoglobin 11.5 (L) 12.0 - 16.0 g/dL Hematocrit 34.9 (L) 36.0 - 46.0 % MCV 92 80 - 100 fL MCH 30.2 26.0 - 34.0 pg MCHC 33.0 32.0 - 36.0 g/dL RDW 12.5 11.5 - 14.5 % Platelets 268 150 - 450 x10*3/uL Comprehensive metabolic panel Result Value Ref Range Glucose 122 (H) 65 - 99 mg/dL Sodium 143 133 - 145 mmol/L Potassium 4.3 3.4 - 5.1 mmol/L Chloride 112 (H) 97 - 107 mmol/L Bicarbonate 21 (L) 24 - 31 mmol/L Urea Nitrogen 5 (L) 8 - 25 mg/dL Creatinine 0.80 0.40 - 1.60 mg/dL eGFR >90 >60 mL/min/1.73m*2 Calcium 8.1 (L) 8.5 - 10.4 mg/dL Albumin 3.3 (L) 3.5 - 5.0 g/dL Alkaline Phosphatase 61 35 - 125 U/L Total Protein 5.7 (L) 5.9 - 7.9 g/dL AST 31 5 - 40 U/L Bilirubin, Total 0.2 0.1 - 1.2 mg/dL ALT 17 5 - 40 U/L Anion Gap 10 <=19 mmol/L CT abdomen pelvis w IV contrast Result Date: 03/16/2023 Interpreted By: Corie Garza, STUDY: CT ABDOMEN PELVIS W IV CONTRAST; 03/16/2023 5:27 pm INDICATION: Signs/Symptoms:abdominal pain - with oral and IV contrast. COMPARISON: None.. ACCESSION NUMBER(S): [id number] ORDERING CLINICIAN: TIFFANIE MENDEZ TECHNIQUE: Oral contrast was not administered. 75 ml Omnipaque [address] of the Abdomen and Pelvis with intravenous contrast was performed. Axial, sagittal and coronal reformatted images were reviewed. All CT examinations areperformed with 1 or more of the following dose reduction techniques: Automated exposure control, adjustment of mA and/or kv according to patient's size, or use of iterative reconstruction techniques.FINDINGS: Lower Chest: Ground-glass densities are noted in the bilateral lung bases dependently. Abdomen: Liver: Multiple well-circumscribed cystic lesions are noted involving both lobes of the liver, the largest on the right measuring approximately 2.0 cm Bile Ducts: Normal caliber. Gallbladder: Nance rgically absent Pancreas: Unremarkable. Spleen: Unremarkable. Adrenals: Normal. Kidneys: Normal. 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 Pelvis: No pelvic masses. Bladder: Unremarkable. Bowel: No bowel wall thickening or abnormal distention to suggest bowel obstruction. Mesenteric Lymph Nodes: No enlarged mesenteric lymph nodes. Peritoneum: Small amount of free fluid is noted adjacent to the spleen and within the pelvis. Vessels: Unremarkable Retroperitoneum: No retroperitoneal adenopathy. Abdominal Wall: Unremarkable. Bones: No acute bony abnormalities. Patchy ground-glass densities in the bilateral lung bases may represent atelectasis. Multiple cystic lesions scattered throughout both lobes of the liver. Postsurgical changes of Tan-en-Y gastric bypass. MACRO: none Signed by: Corie Garza 03/16/2023 5:46 PM Dictation workstation: [id number] XR chest 1 view Result Date: 03/06/2023 Interpreted By: Sara Zarate, STUDY: XR CHEST 1 VIEW; 03/06/2023 7:32 am INDICATION: Signs/Symptoms:post op COMPARISON: None ACCESSION NUMBER(S): [id number] ORDERING CLINICIAN: JASON FOSTER TECHNIQUE: Frontal and lateral chest radiographs. FINDINGS: Enteric tube is seen with the tip overlying the expected location of the stomach. Right upper extremity PICC is seen with the tip overlying the distal SVC. The cardiomediastinal silhouette is unremarkable. The lungs are clear. No pleural effusion is identified. The osseous structures are intact. Appliance positioning as noted above. No consolidation. Signed by: Sara Zaraet 03/06/2023 1:48 PM Dictation workstation: [id number] XR chest 1 view Result Date: 03/05/2023 Interpreted By: Baldomero Hendrickson, STUDY: XR CHEST 1 VIEW; 03/05/2023 3:11 pm INDICATION: CLINICAL INFORMATION: Signs/Symptoms:NG tube placement confirmation. COMPARISON: 03/05/2019 at 745 hours ACCESSION NUMBER(S): [id number] ORDERING CLINICIAN: DESMOND TIRADO TECHNIQUE: Portable chest one view. FINDINGS: The cardiac size is indeterminate in view of the AP projection. Nasogastric tube extends into the left upper quadrant. Right-sided PICC line is present with the catheter tip overlying the SVC right atrial junction. No infiltrates or effusions are identified. 1. Status post NG tube insertion with the tube extending into the left upper quadrant. 2. Stable appearance of the PICC line. 3. No infiltrates are identified. MACRO: none Signed by: Baldomero Hendrickson 03/05/2023 3:31 PM Dictation workstation: [id number] XR chest 1 view Result Date: 03/05/2023 Interpreted By: Nya Ahmadi, STUDY: XR CHEST 1 VIEW 03/05/2023 7:51 am INDICATION: Signs/Symptoms:confirm line placement COMPARISON: None available. ACCESSION NUMBER(S): [id number] ORDERING CLINICIAN: SERENA GEORGE TECHNIQUE: AP erect view of the chest FINDINGS: Right arm PICC line terminates in the SVC. There is no pneumothorax. The heart, mediastinum, and lungs are normally visualized. Right arm PICC line terminating in SVC without pneumothorax. No acute cardiopulmonary disease. Signed by: Nya Ahmadi 03/05/2023 7:54 AM Dictation workstation: [id number] Assessment/Plan NV, Epigastric Pain (LFTs are normal. CT a/p normal) -Complicated recent surgical hx with tan en y and gastric sleeve followed by [facility] and vascular intervention earlier this month. She was having a post op ileus at that time. Still on narcotics -Pending Dr Shawna jo. We could consider EGD if symptoms are not improving. Dr Araiza mentions feeding tube, Feeding tube placement would be difficult as well, this would need to be placed surgically given abnormal anatomy -Recommend PPI daily I spent 30 minutes in the professional and overall care of this patient. Associated attestation - Yani Wong MD - 03/17/2023 11:20 PM EST Seen and examined. Agree with assessment and plan. Labs reviewed. Note from Dr. Tato Caceres reviewed later. 32-year-old with complicated past medical history including multiple abdominal surgeries. At this time her nausea seems to be improving. Agree with symptomatic treatment and if not better proceed with EGD in the presence of Dr. Tato Nguyen. [facility] Work Phone: [phone]) 158-283201-31-2024 Nurse Note* Cathy Madera RN - 03/17/2023 9:15 AM EST Patient arrived to unit with and father at bedside. Patient is new admission in 437[facility]. Patient alert and oriented x 4. Patient assessed at this time. Patient has diminished lung sounds upon auscultation. Patient is on room air. Patient is on TELE. Patient has sutures down midline of abdomen.Patient report MALS surgery on February,. Sutures are intact, clean, dry and intact. No redness, or drainage noted. Patient denies any nausea, vomiting or diarrhea at this time. Patient denies any pain at this time. Patient does not appear to be in any distress. Fall precautions reviewed and implemented. Bed brakes locked, bed in lowest position, call light within reach, bed alarm activa darvin. Will continue to monitor patient to ensure patient safety. [facility] Work Phone: [phone]) 880-476801-30-2024 Consult note* Lizz Brunson APRN-BETH - 03/16/2023 5:09 PM EST Consults Reason For Consult Medical management History Of Present Illness Abbey Garcia is a 32 y.o. female presenting with abdominal pain. 32-year-old female presents to [facility] for chief complaint of abdominal pain, nausea. Patient has past medical history of gastric bypass that was revised with gastric sleeve. She also has a history of median arcuate ligament release with vascular surgery 03/05/2023. She was discharged on 03/11/2023. She states that 2 days after being discharged she noted experiencing abdominal pain, nausea and could not keep any p.o. intake down. She returned to emergency room close to her home near [place], [place] for further evaluation and was promptly transferred to [facility] for further evaluation and treatment. The hospitalist service is being consulted for medical management of hypothyroidism, asthma, GERD. Past Medical History She has a past medical history of Anxiety, Arthritis, Asthma, CPAP (continuous positive airway pressure) dependence, Depression, Dizziness, GERD (gastroesophageal reflux disease), Hypothyroidism, Irritable bowel syndrome, Median arcuate ligament syndrome (CMS/HCC), PCOS (polycystic ovarian syndrome), PONV (postoperative nausea and vomiting), PUD (peptic ulcer disease), and Shortness of breath. She has no past medical history of MARSHAL (acute kidney injury) ([facility]/HCC), Autoimmune disorder ([facility]/HCC), Bipolar disorder ([facility]/HCC), BPH (benign prostatic hyperplasia), Cerebral aneurysm, Cervical cancer ([facility]/HCC), Cervical disc disease, Chronic kidney disease, CKD (chronic kidney disease), Cognitivedecline, Crohn's disease ([facility]/HCC), Dementia ([facility]/HCC), Dysphagia, Endometrial cancer ([facility]/HCC), Esophageal cancer ([facility]/HCC), Esophageal disease, ESRD (end stage renal disease) ([facility]/HCC), Fibromyalgia, primary, Fractures, Gastric cancer ([facility]/HCC), Gender dysphoria, GI (gastrointestinal bleed), Hemodialysis status ([facility]), Hernia, internal, History of peritoneal dialysis, HIV disease ([facility]/HCC), Immunocompromised ([facility]/HCC), Liver disease, Lumbar disc disease, Mastocytosis, MS (multiple sclerosis) ([facility]/HCC), Muscular dystrophy ([facility]/HCC), Myasthenia gravis ([facility]/HCC), Neuromuscular disorder ([facility]/HCC), Ovarian cancer (CMS/HCC), Pancreatitis, Peptic ulcer disease, Prematurity, PTSD (post-traumatic stress disorder), Schizophrenia ([facility]/HCC), Seizure disorder (CMS/HCC), Spinal stenosis, Substanceaddiction (CMS/HCC), Syncope, TIA (transient ischemic attack), Ulcerative colitis (CMS/HCC), Urinary tract infection, Uterine cancer (CMS/HCC), or Vertigo. Surgical History She has a past surgical history that includes CT angio abdomen pelvis w and or wo IV IV contrast (12/14/2022); Gastric bypass; section, classic; ERCP w/ sphincterotomy and balloon dilation; Appendectomy; and Cholecystectomy. Social History She reports that she has never smoked. She has never used smokeless tobacco. She reports that she does not currently use alcohol. She reports that she does not use drugs. Family History Family History Problem Relation Name Age of Onset Diabetes Mother Jessica Phipps Hypertension Mother Jessica Galeasino Cancer Maternal Grandfather Cedrick Kraus COPD Maternal Grandfather Cedrick Kraus Heart disease Maternal Grandfather Cedrick Kraus Kidney disease Maternal Grandfather Cedrick Kraus Hypertension Maternal Grandmother Grandpa Anesthesia problems Paternal Grandfather Elan Artino Arthritis Paternal Grandfather Elan Artino Hypertension Paternal Grandfather Elan Artino Anesthesia related problems Paternal Grandfather Elan Artino COPD Paternal Grandmother Grandmother Diabetes Paternal Grandmother Grandmother Asthma Brother Adán Moise Allergies Codeine and Nsaids (non-steroidal anti-inflammatory drug) Review of Systems Review of Systems Constitutional: Positive for activity change, appetite change and fatigue. HENT: Negative. Eyes: Negative. Respiratory: Negative. Cardiovascular: Negative. Gastrointestinal: Positive for abdominal pain, nausea and vomiting. Endocrine: Negative. Genitourinary: Negative. Musculoskeletal: Negative. Skin: Negative. Allergic/Immunologic: Negative. Neurological: Negative. All other systems reviewed and are negative. Physical Exam Physical Exam Vitals reviewed. Constitutional: Appearance: She is ill-appearing. HENT: Head: Normocephalic. Nose: Nose normal. Mouth/Throat: Mouth: Mucous membranes are moist. Eyes: Extraocular Movements: Extraocular movements intact. Pupils: Pupils are equal, round, and reactive to light. Cardiovascular: Rate and Rhythm: Normal rate and regular rhythm. Pulses: Normal pulses. Heart sounds: Normal heart sounds. Pulmonary: Effort: Pulmonary effort is normal. Breath sounds: Normal breath sounds. Abdominal: General: Bowel sounds are normal. Palpations: Abdomen is soft. Musculoskeletal: General: Normal range of motion. Cervical back: Normal range of motion. Skin: General: Skin is dry. Capillary Refill: Capillary refill takes less than 2 seconds. Comments: Mid abdominal incision clean and dry intact Neurological: General: No focal deficit present. Mental Status: She is alert. Last Recorded Vitals BP 122/76 Pulse 76 Temp 37 C (98.6 F) (Oral) Resp 17 Wt 92.7 kg (204 lb 5.9 oz) SpO2 99% Relevant Results Results for orders placed or performed during the hospital encounter of 03/16/23 (from the past 24 hour(s)) Sars-CoV-2 and Influenza A/B PCR Result Value Ref Range Flu A Result Not Detected Not Detected Flu B Result Not Detected Not Detected Coronavirus 2018, PCR Not Detected Not Detected CBC and Auto Differential Result Value Ref Range WBC 5.0 4.4 - 11.3 x10*3/uL nRBC 0.0 0.0 - 0.0 /100 WBCs RBC 3.54 (L) 4.00 - 5.20 x10*6/uL Hemoglobin 10.8 (L) 12.0 - 16.0 g/dL Hematocrit 33.4 (L) 36.0 - 46.0 % MCV 94 80 - 100 fL MCH 30.5 26.0 - 34.0 pg MCHC 32.3 32.0 - 36.0 g/dL RDW 12.3 11.5 - 14.5 % Platelets 273 150 - 450 x10*3/uL Neutrophils % 48.6 40.0 - 80.0 % Immature Granulocytes %, Automated 0.2 0.0 - 0.9 % Lymphocytes % 33.7 13.0 - 44.0 % Monocytes % 6.2 2.0 - 10.0 % Eosinophils % 9.9 0.0 - 6.0 % Basophils % 1.4 0.0 - 2.0 % Neutrophils Absolute 2.45 1.20 - 7.70 x10*3/uL Immature Granulocytes Absolute, Automated 0.01 0.00 - 0.70 x10*3/uL Lymphocytes Absolute 1.70 1.20 - 4.80 x10*3/uL Monocytes Absolute 0.31 0.10 - 1.00 x10*3/uL Eosinophils Absolute 0.50 0.00 - 0.70 x10*3/uL Basophils Absolute 0.07 0.00 - 0.10 x10*3/uL Comprehensive metabolic panel Result Value Ref Range Glucose 82 65 - 99 mg/dL Sodium 141 133 - 145 mmol/L Potassium 3.7 3.4 - 5.1 mmol/L Chloride 110 (H) 97 - 107 mmol/L Bicarbonate 21 (L) 24 - 31 mmol/L Urea Nitrogen 8 8 - 25 mg/dL Creatinine 0.80 0.40 - 1.60 mg/dL eGFR >90 >60 mL/min/1.73m*2 Calcium 7.9 (L) 8.5 - 10.4 mg/dL Albumin 3.0 (L) 3.5 - 5.0 g/dL Alkaline Phosphatase 58 35 - 125 U/L Total Protein 5.5 (L) 5.9 - 7.9 g/dL AST 32 5 - 40 U/L Bilirubin, Total <0.2 0.1 - 1.2 mg/dL ALT 13 5 - 40 U/L Anion Gap 10 <=19 mmol/L Assessment/Plan Postop abdominal pain, nausea, vomiting As managed by primary service-vascular N.p.o., antiemetics, as needed Percocet Hypothyroidism Continue home Synthroid, Cytomel Anxiety, depression Continue home Valium, BuSpar, Lexapro, Remeron, Atarax Asthma Continue home as needed nebulizer treatments History of headaches Hold home Topamax for now Monitor headaches Anemia Continue home iron supplementation GERD Continue home Pepcid Thank you for this consult. Will continue to follow. [facility] Work Phone: [phone]) 754-432601-30-2024 Emergency department Note* Grecia Oates RN - 03/16/2023 5:00 PM EST Pt is requesting pain medication. MD Barker notified. Grecia Oates RN 03/16/231700 [facility] Work Phone: [phone] Emergency department Note* Grecia Oates RN - 03/16/2023 5:00 PM EST Pt is requesting pain medication. MD Barker notified. Grecia Oates RN 03/16/231700 * Grecia Oates RN - 03/16/2023 3:54 PM EST Pt has not been able to sustain orthostatic VS. She is not able to stand at this time. 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 [place] Pt is A&O x3. States terrible pain in abdomen that doesn't go away. C/O nausea, vomiting, headaches, body chills. * Melisa Barker MD - 03/16/2023 1:37 PM EST Supervisory note: Patient seen in conjunction with HENNY Miller. Patient presents with abdominal pain. The pain has been worsening. It occurs primarily when she takes anything by mouth. It is located in the epigastric region. Patient questions whether could be related to her stomach pouch. She had recent median arcuate ligament syndrome surgery performed by Dr. Magaña. On examination, there is epigastric and left upper quadrant tenderness to palpation. Patient accepted to vascular surgery service for further management. I personally saw the patient and made/approved the management plan and take responsiblity for the patient management. Parts of this chart were completed with dictation software, please excuse any errors in real estate legal assistant. Melisa Barker MD 03/16/23 1920 * Leatha Paul PA-C - 03/16/2023 1:37 PM EST HPI Chief Complaint Patient presents with Abdominal Pain Patient is a 32-year-old female history of gastric bypass surgery, median arcuate ligament syndromewith vascular surgery performed on March 05 transferred [facility] from [facility] in [place] for abdominal pain and nausea vomiting. Patient states the abdominal pain is mid abdominal, no signs of surgical scar infection, states she has been unable to tolerate p.o. intake for 2 days now. She states she feels a burning cramping sensation around where her gastric pouch was placed. ER spoke with Dr. Magaña vascular surgeon who requested for patient to be sent to [facility] for further evaluation. Patient denies recent fever or chills. No other acute complaints at this time. Kris Coma Scale Score: 15 Patient History Past Medical History: Diagnosis Date Anxiety Arthritis Asthma CPAP (continuous positive airway pressure) dependence Depression Dizziness GERD (gastroesophageal reflux disease) Hypothyroidism Irritable bowel syndrome with constipation Median arcuate ligament syndrome (CMS/HCC) PCOS (polycystic ovarian syndrome) PONV (postoperative nausea and vomiting) PUD (peptic ulcer disease) Shortness of breath Past Surgical History: Procedure Laterality Date APPENDECTOMY SECTION, CLASSIC x3 CHOLECYSTECTOMY CT ABDOMEN PELVIS ANGIOGRAM W AND/OR WO IV CONTRAST 12/14/2022 CT ABDOMEN PELVIS ANGIOGRAM W AND/OR WO IV CONTRAST 12/14/2022 ERCP W/ SPHINCTEROTOMY AND BALLOON DILATION GASTRIC BYPASS 01/2022 Family History Problem Relation Name Age of Onset Diabetes Mother Jessica Artino Hypertension Mother Jessica Artino Cancer Maternal Grandfather Cedrick Kraus COPD Maternal Grandfather Cedrick Kraus Heart disease Maternal Grandfather Cedrick Kraus Kidney disease Maternal Grandfather Cedrick Kraus Hypertension Maternal Grandmother Grandpa Anesthesia problems Paternal Grandfather Elan Artino Arthritis Paternal Grandfather Elan Artino Hypertension Paternal Grandfather Elan Artino Anesthesia related problems Paternal Grandfather Elan Artino COPD Paternal Grandmother Grandmother Diabetes Paternal Grandmother Grandmother Asthma Brother Adán Phipps Social History Tobacco Use Smoking status: Never Smokeless tobacco: Never Substance Use Topics Alcohol use: Not Currently Drug use: Never Physical Exam ED Triage Vitals [03/16/23 1347] Temperature Heart Rate Respirations BP 37 C (98.6 F) 66 18 112/60 Pulse Ox Temp Source Heart Rate Source Patient Position 99 % Oral Monitor Lying BP Location FiO2 (%) Right arm -- Physical Exam Vitals and nursing note reviewed. Constitutional: General: She is not in acute distress. Appearance: She is well-developed. HENT: Head: Normocephalic and atraumatic. Cardiovascular: Rate and Rhythm: Normal rate and regular rhythm. Heart sounds: Normal heart sounds. Pulmonary: Effort: Pulmonary effort is normal. Breath sounds: Normal breath sounds. Abdominal: Comments: Abdomen is flat and nondistended. There is a midline surgical abdominal scar that appearsto be healing well without signs of surrounding erythema or exudate. Mid abdominal pain and tenderness to palpation. Skin: Comments: Skin is warm and dry but patient does appear slightly pale. Neurological: Mental Status: She is alert and oriented to person, place, and time. Psychiatric: Mood and Affect: Mood normal. Behavior: Behavior normal. ED Course & MDM ED Course as of 03/16/23 1640 Tue Mar 16, 2023 142 Vascular surgery [employer] wanted to put in the imaging study herself so she is the one who ordered the CT abdomen pelvis with IV contrast for this patient. All other orders were placed via the recommendations of Dr. Magaña vascular surgeon at his request. [JJ] 1421 Requested disposition is medical admission with consult to vascular and GI [JJ] 1501 I spoke with hospitalist on-call Dr. Green. He expressed his concern over admitting thispatient under his service at this time. He spoke with Tiffanie [employer] for vascular surgery. He epic chatted me stating that they would except the patient for admission under vascular surgery. [JJ] ED Course User Index [JJ] Leatha Paul PA-C Diagnoses as of 03/16/23 1640 Abdominal pain Nausea and vomiting, unspecified vomiting type History of gastric bypass Medical Decision Making Parts of this chart have been completed using voice recognition software. Please excuse any errors of real estate legal assistant. My thought process and reason for plan has been formulated from the time that I saw the patient until the time of disposition and is not specific to one specific moment during their visit and furthermore my MDM encompasses this entire chart and not only this text box. HPI: Detailed above. Exam: A medically appropriate exam performed, outlined above, given the known history and presentation. History obtained from: Patient, EMS, attending ER physician at [facility] Social Determinants of Health considered during this visit: Lives independently Medications given during visit: Medications dextrose 5%-0.45 % sodium chloride infusion (150 mL/hr intravenous New Bag 03/16/23 9162) albuterol 2.5 mg /3 mL (0.083 %) nebulizer solution 2.5 mg (has no administration in time range) busPIRone (Buspar) tablet 10 mg (has no administration in time range) diazePAM (Valium) tablet 5 mg (has no administration in time range) escitalopram (Lexapro) tablet 20 mg (has no administration in time range) famotidine (Pepcid) tablet 20 mg (has no administration in time range) ferrous sulfate (325 mg ferrous sulfate) tablet 1 tablet (has no administration in time range) hydrOXYzine HCL (Atarax) tablet 25 mg (has no administration in time range) levothyroxine (Synthroid, Levoxyl) tablet 100 mcg (has no administration in time range) liothyronine (Cytomel) tablet 5 mcg (has no administration in time range) mirtazapine (Remeron) tablet 15 mg (has no administration in time range) ondansetron ODT (Zofran-ODT) disintegrating tablet 4 mg (has no administration in time range) oxyCODONE-acetaminophen (Percocet) 5-325 mg per tablet 1 tablet (has no administration in time range) polyethylene glycol (Glycolax, Miralax) packet 17 g (has no administration in time range) heparin (porcine) injection 5,000 Units (has no administration in time range) acetaminophen (Tylenol) tablet 650 mg (has no administration in time range) Or acetaminophen (Tylenol) oral liquid 650 mg (has no administration in time range) Or acetaminophen (Tylenol) suppository 650 mg (has no administration in time range) prochlorperazine (Compazine) injection 5 mg (5 mg intravenous Given 03/16/23 3978) Diagnostic/tests Labs Reviewed CBC WITH AUTO DIFFERENTIAL - Abnormal Result Value WBC 5.0 nRBC 0.0 RBC 3.54 (*) Hemoglobin 10.8 (*) Hematocrit 33.4 (*) MCV 94 MCH 30.5 MCHC 32.3 RDW 12.3 Platelets 273 Neutrophils % 48.6 Immature Granulocytes %, Automated 0.2 Lymphocytes % 33.7 Monocytes % 6.2 Eosinophils % 9.9 Basophils % 1.4 Neutrophils Absolute 2.45 Immature Granulocytes Absolute, Automated 0.01 Lymphocytes Absolute 1.70 Monocytes Absolute 0.31 Eosinophils Absolute 0.50 Basophils Absolute 0.07 COMPREHENSIVE METABOLIC PANEL - Abnormal Glucose 82 Sodium 141 Potassium 3.7 Chloride 110 (*) Bicarbonate 21 (*) Urea Nitrogen 8 Creatinine 0.80 eGFR >90 Calcium 7.9 (*) Albumin 3.0 (*) Alkaline Phosphatase 58 Total Protein 5.5 (*) AST 32 Bilirubin, Total <0.2 ALT 13 Anion Gap 10 SARS-COV-2 AND INFLUENZA A/B PCR - Normal Flu A Result Not Detected Flu B Result Not Detected Coronavirus 2019, PCR Not Detected Narrative: This assay has received FDA Emergency Use Authorization (EUA) and is only authorized for the duration of time that circumstances exist to justify the authorization of the emergency use of in vitro diagnostic tests for the detection of SARS-CoV-2 virus and/or diagnosis of COVID-19 infection under sec tion 564(b)(1) of the Act, 21 U.S.C. 360bbb-3(b)(1). Testing for SARS-CoV-2 is only recommended forpatients who meet current clinical and/or epidemiological criteria as defined by federal, state, orlocal public health directives. This assay is an in vitro diagnostic nucleic acid amplification test for the qualitative detection of SARS-CoV-2, Influenza A, and Influenza B from nasopharyngeal specimens and has been validated for use at [facility]. Negative results do not preclude COVID-19 infections or Influenza A/B infections, and should not be used as the sole basis for diagnosis, treatment, or other management decisions. If Influenza A/B and RSV PCR results are negative, testing for Parainfluenza virus, Adenovirus and Metapneumovirus is routinely performed for [facility] pediatric oncology and intensive care inpatients, and is available on other patients by placing anadd-on request. CBC WITH AUTO DIFFERENTIAL COMPREHENSIVE METABOLIC PANEL CT abdomen pelvis w IV contrast (Results Pending) FL upper GI single contrast w small bowel follow through (Results Pending) Considerations/further MDM: Patient is a 32-year-old female with history of gastric bypass, recent vascular surgery with Dr. Magaña transferred ER to ER from [place] for further evaluation of her abdominal pain and nausea and vomiting. Patient was stable upon arrival to the ER alert and oriented able to provide adequate history. Her vital signs were within normal limits. She was given Compazine and started on fluids as directed by a vascular surgeon. Orders were placed by vascular surgery and myself as directed by their request. She remained stable during the ER visit. She was admitted to vascular surgery with GI consult for further treatment and care of her abdominal pain and intractable nausea and vomiting. I spoke with Dr. Magaña. We thoroughly discussed the history, physical exam, laboratory and imaging studies, as well as, emergency department course. Based upon that discussion, we've decided to admit for further observation and evaluation of their abdominal pain. As I have deemed necessary from their history, physical and studies, I have considered and evaluated for the following diagnoses: ACUTE APPENDICITIS, BOWEL OBSTRUCTION, CHOLECYSTITIS, DIVERTICULITIS, INCARCERATED HERNIA, MESENTERIC ISCHEMIA, PANCREATITIS, or PERFORATED BOWEL or ULCER, ACUTE ABDOMEN, SPLENIC INJURY, INTERNAL BLEEDING. Procedure Procedures Leatha Paul PA-C 03/16/23 1643 * Linda Ngo RN - 03/16/2023 1:37 PM EST Into assess patient. Patient awake and A&OX4. Patient complains of incisional pain and requested Percocet for relief, rates pain 7/10. Assessed incisional wound on abdomen, incision well approximated, dry and scabbed, no drainage noted. Patient admits to surgery On 03/05/23 for MALS. Medicated with percocet as requested. Linda Ngo RN 03/17/23 0801 * Linda Ngo RN - 03/16/2023 1:37 PM EST Report called to DEE Ortiz updated on patient's status. Linda Ngo RN 03/17/23 0826 documented in this [facility] Work Phone: 1(547) 768-574101-30-2024 Emergency department Note* Grecai Oates RN - 03/16/2023 3:54 PM EST Pt has not been able to sustain orthostatic VS. She is not able to stand at this time. Grecia Oates RN 03/16/23 5307 [facility] Work Phone: [phone]) 120-142201-30-2024 Note* Significant Event - Channing Oconnor DO - 03/16/2023 3:02 PM EST Called to admit this patient for abdominal pain. Going to review, this patient has a ongoing history since 2019 of abdominal pain with considerable notes from [facility], and has a history gastric bypass, cholecystectomy, sphincterectomy, and recent median arcuate ligament release on March 05 with vascular surgery. [facility] and sent home, again presenting today and apparently CT without contrast was done which was unremarkable; I am confused with this, but the ER apparently at that facility discussedwith vascular surgery here and ER to ER transfer was done. No lab work has been done at this facilit y. No imaging recent done at this facility. Ultimately, this is a patient with no active emesis per my discussion with ER staff, and feel that in this patient has either an acute worsening of her chronic issue which will be best done at [facility] either as inpatient or outpatient, where she has ongoing work, or is a postoperative situation that has been discussed multiple times with the primary operating service (and I have discussed with Tiffanie Mendez CNP with their service and there appears to be a good plan for imaging studies), and can ba admitted by their service). [facility] Work Phone: [phone] 364-333801-30-2024 Evaluation + Plan noteExtracted from: Title:ED Note Author:Earnest Jett DO Date:02/17 Abdominal pain (R10.9: Unspe cified abdominal pain) Ordered: acetaminophen-oxycodone, 1 tab(s), Oral, q6hr for 3 day(s), 10 tab(s), Refill(s) 0 Post-operative pain (G89.18: Other acute postprocedural pain) Vomiting (R11.10: Vomiting, unspecified) Orders: Al hydroxide/Mg hydroxide/simethicone, 30 mL, Susp-Oral, Oral, Once, Stop date 03/15/23 16:19:00 EST, STAT, Start date 03/15/23 16:19:00 EST atropine/hyoscyamine/PB/scopolamine, 10 mL, Elixir, Oral, Once, Stop date 03/15/23 16:19:00 EST, STAT, Start date 03/15/23 16:19:00 EST diazepam, 5 mg = 1 tab(s), Oral, q8hr, PRN Muscle pain, X 3 day(s), # 10 tab(s), Refills(s) 0 HYDROmorphone, 1 mg = 1 mL, Injection, IV Push, Once, Stop date 03/16/23 10:32:00 EST, STAT, Start date 03/16/23 10:32:00 EST, 03/16/23 10:32:00 EST HYDROmorphone, 1 mg = 1 mL, Injection, IV Push, Once, Stop date 03/15/23 16:19:00 EST, STAT, Start date 03/15/23 16:19:00 EST, 03/15/23 16:19:00 EST metoclopramide, 10 mg = 2 mL, Injection, IV Push, Once, Stop date 03/15/23 16:34:00 EST, STAT, Start date 03/15/23 16:34:00 EST, 03/15/23 16:34:00 EST morphine, 4 mg = 1 mL, Injection, IV Push, Once, Stop date 03/15/23 14:44:00 EST, STAT, Start date 03/15/23 14:44:00 EST, 03/15/23 14:44:00 EST morphine, 8 mg = 2 mL, Injection, IntraMuscular, Once, Stop date 03/15/23 13:01:00 EST, STAT, Start date 03/15/23 13:01:00 EST, 03/15/23 13:01:00 EST ondansetron, 4 mg = 1 tab(s), Oral, q6hr, PRN Nausea, Take one tab by mouth every six hours as needed for nausea, # 10 tab(s), Refills(s) 0 ondansetron, 4 mg = 1 tab(s), Tab-Dis, Oral, Once, Stop date 03/16/23 10:32:00 EST, STAT, Start date 03/16/23 10:32:00 EST, 03/16/23 10:32:00 EST ondansetron, 4 mg = 2 mL, Injection, IV Push, Once, Stop date 03/15/23 14:44:00 EST, STAT, Start date 03/15/23 14:44:00 EST, 03/15/23 14:44:00 EST ondansetron, 4 mg = 2 mL, Injection, IV Push, Once, Stop date 03/15/23 12:08:00 EST, STAT, Start date 03/15/23 12:08:00 EST, 03/15/23 12:08:00 EST pantoprazole, 40 mg = 10 mL, Injection, IV Push, Once, Stop date 03/16/23 10:32:00 EST, STAT, Start date 03/16/23 10:32:00 EST, 03/16/23 10:32:00 EST pantoprazole, 40 mg = 10 mL, Injection, IV Push, Once, Stop date 03/15/23 16:10:00 EST, STAT, Start date 03/15/23 16:10:00 EST, 03/15/23 16:10:00 EST Sodium Chloride 0.9% intravenous solution, 1,000 mL, Soln-IV, IV, Once, Stop date 03/16/23 10:32:00 EST, STAT, Start date 03/16/23 10:32:00 EST, Infuse over 61, minute(s) Sodium Chloride 0.9% intravenous solution, 1,000 mL, Soln-IV, IV, Once, Stop date 03/15/23 12:08:00 EST, STAT, Start date 03/15/23 12:08:00 EST, Infuse over 61, minute(s) Basic Metabolic Panel Basic Metabolic Panel BB Draw & Hold CBC w/ Auto Diff CBC w/ Auto Diff CT Abdomen/Pelvis w/o Contrast ECG 12 Lead Adult eGFR Extra Green Li Tube Extra Lav Tube Hepatic Function Panel Hepatic Function Panel Lactic Acid Lactic Acid Lipase Level Lipase Level PT & PTT Troponin 0 Hr. UA With Cult Reflex XR Chest Single View Future Appointments Appointment Date:08/04/2023 09:45:00 AM Scheduled Provider:Rajni Rouse MD Location: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 [place]? Pt is A&O x3. States terrible pain in abdomen that doesn't go away. C/O nausea, vomiting, headaches, body chills. [facility] Work Phone: [phone] 543-186801-30-2024 Emergency department Note* Linda Ngo RN - 03/16/2023 1:37 PM EST Into assess patient. Patient awake and A&OX4. Patient complains of incisional pain and requested Percocet for relief, rates pain 7/10. Assessed incisional wound on abdomen, incision well approximated, dry and scabbed, no drainage noted. Patient admits to surgery On 03/05/23 for MALS. Medicated with percocet as requested. Linda Ngo RN 03/17/23 08 [facility]01-30-2024 Emergency department Note* Linda Ngo RN - 03/16/2023 1:37 PM EST Report called to DEE Ortiz updated on patient's status. Linda Ngo RN 03/17/23825 [facility] Work Phone: [phone] 258-714401-30-2024 Physician Emergency department Note* Melisa Barker MD - 03/16/2023 1:37 PM EST Supervisory note: Patient seen in conjunction with HENNY Miller. Patient presents with abdominal pain. The pain has been worsening. It occurs primarily when she takes anything by mouth. It is located in the epigastric region. Patient questions whether could be related to her stomach pouch. She had recent median arcuate ligament syndrome surgery performed by Dr. Magaña. On examination, there is epigastric and left upper quadrant tenderness to palpation. Patient accepted to vascular surgery service for further management. I personally saw the patient and made/approved the management plan and take responsiblity for the patient management. Parts of this chart were completed with dictation software, please excuse any errors in real estate legal assistant. Melisa Barker MD 03/16/231919 [facility] Work Phone: [phone] Physician Emergency department Note* HENNY Miller-Elroy - 03/16/2023 1:37 PM EST HPI Chief Complaint Patient presents with Abdominal Pain Patient is a 32-year-old female history of gastric bypass surgery, median arcuate ligament syndromewith vascular surgery performed on March 05 transferred to [facility] from [facility] in [place] for abdominal pain and nausea vomiting. Patient states the abdominal pain is mid abdominal, no signs of surgical scar infection, states she has been unable to tolerate p.o. intake for 2 days now. She states she feels a burning cramping sensation around where her gastric pouch was placed. ER spoke with Dr. Magaña vascular surgeon who requested for patient to be sent to [facility] ER for further evaluation. Patient denies recent fever or chills. No other acute complaints at this time. Kris Coma Scale Score: 15 Patient History Past Medical History: Diagnosis Date Anxiety Arthritis Asthma CPAP (continuous positive airway pressure) dependence Depression Dizziness GERD (gastroesophageal reflux disease) Hypothyroidism Irritable bowel syndrome with constipation Median arcuate ligament syndrome (CMS/HCC) PCOS (polycystic ovarian syndrome) PONV (postoperative nausea and vomiting) PUD (peptic ulcer disease) Shortness of breath Past Surgical History: Procedure Laterality Date APPENDECTOMY SECTION, CLASSIC x3 CHOLECYSTECTOMY CT ABDOMEN PELVIS ANGIOGRAM W AND/OR WO IV CONTRAST 12/14/2022 CT ABDOMEN PELVIS ANGIOGRAM W AND/OR WO IV CONTRAST 12/14/2022 ERCP W/ SPHINCTEROTOMY AND BALLOON DILATION GASTRIC BYPASS 01/2022 Family History Problem Relation Name Age of Onset Diabetes Mother Jessica Phipps Hypertension Mother Jessica Galeasino Cancer Maternal Grandfather Cedrick Kraus COPD Maternal Grandfather Cedrick Kraus Heart disease Maternal Grandfather Cedrick Kraus Kidney disease Maternal Grandfather Cedrick Kraus Hypertension Maternal Grandmother Grandpa Anesthesia problems Paternal Grandfather Elan Artino Arthritis Paternal Grandfather Elan Artino Hypertension Paternal Grandfather Elan Artino Anesthesia related problems Paternal Grandfather Elan Artino COPD Paternal Grandmother Grandmother Diabetes Paternal Grandmother Grandmother Asthma Brother Adán Phipps Social History Tobacco Use Smoking status: Never Smokeless tobacco: Never Substance Use Topics Alcohol use: Not Currently Drug use: Never Physical Exam ED Triage Vitals [03/16/23 1347] Temperature Heart Rate Respirations BP 37 C (98.6 F) 66 18 112/60 Pulse Ox Temp Source Heart Rate Source Patient Position 99 % Oral Monitor Lying BP Location FiO2 (%) Right arm -- Physical Exam Vitals and nursing note reviewed. Constitutional: General: She is not in acute distress. Appearance: She is well-developed. HENT: Head: Normocephalic and atraumatic. Cardiovascular: Rate and Rhythm: Normal rate and regular rhythm. Heart sounds: Normal heart sounds. Pulmonary: Effort: Pulmonary effort is normal. Breath sounds: Normal breath sounds. Abdominal: Comments: Abdomen is flat and nondistended. There is a midline surgical abdominal scar that appearsto be healing well without signs of surrounding erythema or exudate. Mid abdominal pain and tenderness to palpation. Skin: Comments: Skin is warm and dry but patient does appear slightly pale. Neurological: Mental Status: She is alert and oriented to person, place, and time. Psychiatric: Mood and Affect: Mood normal. Behavior: Behavior normal. ED Course & MDM ED Course as of 03/16/23 1640 Tue Mar 16, 2023 1421 Vascular surgery [employer] wanted to put in the imaging study herself so she is the one who ordered the CT abdomen pelvis with IV contrast for this patient. All other orders were placed via the recommendations of Dr. Magaña vascular surgeon at his request. [JJ] 1421 Requested disposition is medical admission with consult to vascular and GI [JJ] 1501 I spoke with hospitalist on-call Dr. Green. He expressed his concern over admitting thispatient under his service at this time. He spoke with Tiffanie JEFFERS for vascular surgery. He epic chatted me stating that they would except the patient for admission under vascular surgery. [JJ] ED Course User Index [JJ] Leatha Paul PA-C Diagnoses as of 03/16/23 1640 Abdominal pain Nausea and vomiting, unspecified vomiting type History of gastric bypass Medical Decision Making Parts of this chart have been completed using voice recognition software. Please excuse any errors of real estate legal assistant. My thought process and reason for plan has been formulated from the time that I saw the patient until the time of disposition and is not specific to one specific moment during their visit and furthermore my MDM encompasses this entire chart and not only this text box. HPI: Detailed above. Exam: A medically appropriate exam performed, outlined above, given the known history and presentation. History obtained from: Patient, EMS, attending ER physician at [facility] Social Determinants of Health considered during this visit: Lives independently Medications given during visit: Medications dextrose 5%-0.45 % sodium chloride infusion (150 mL/hr intravenous New Bag 03/16/23 1438) albuterol 2.5 mg /3 mL (0.083 %) nebulizer solution 2.5 mg (has no administration in time range) busPIRone (Buspar) tablet 10 mg (has no administration in time range) diazePAM (Valium) tablet 5 mg (has no administration in time range) escitalopram (Lexapro) tablet 20 mg (has no administration in time range) famotidine (Pepcid) tablet 20 mg (has no administration in time range) ferrous sulfate (325 mg ferrous sulfate) tablet 1 tablet (has no administration in time range) hydrOXYzine HCL (Atarax) tablet 25 mg (has no administration in time range) levothyroxine (Synthroid, Levoxyl) tablet 100 mcg (has no administration in time range) liothyronine (Cytomel) tablet 5 mcg (has no administration in time range) mirtazapine (Remeron) tablet 15 mg (has no administration in time range) ondansetron ODT (Zofran-ODT) disintegrating tablet 4 mg (has no administration in time range) oxyCODONE-acetaminophen (Percocet) 5-325 mg per tablet 1 tablet (has no administration in time range) polyethylene glycol (Glycolax, Miralax) packet 17 g (has no administration in time range) heparin (porcine) injection 5,000 Units (has no administration in time range) acetaminophen (Tylenol) tablet 650 mg (has no administration in time range) Or acetaminophen (Tylenol) oral liquid 650 mg (has no administration in time range) Or acetaminophen (Tylenol) suppository 650 mg (has no administration in time range) prochlorperazine (Compazine) injection 5 mg (5 mg intravenous Given 03/16/23 7970) Diagnostic/tests Labs Reviewed CBC WITH AUTO DIFFERENTIAL - Abnormal Result Value WBC 5.0 nRBC 0.0 RBC 3.54 (*) Hemoglobin 10.8 (*) Hematocrit 33.4 (*) MCV 94 MCH 30.5 MCHC 32.3 RDW 12.3 Platelets 273 Neutrophils % 48.6 Immature Granulocytes %, Automated 0.2 Lymphocytes % 33.7 Monocytes % 6.2 Eosinophils % 9.9 Basophils % 1.4 Neutrophils Absolute 2.45 Immature Granulocytes Absolute, Automated 0.01 Lymphocytes Absolute 1.70 Monocytes Absolute 0.31 Eosinophils Absolute 0.50 Basophils Absolute 0.07 COMPREHENSIVE METABOLIC PANEL - Abnormal Glucose 82 Sodium 141 Potassium 3.7 Chloride 110 (*) Bicarbonate 21 (*) Urea Nitrogen 8 Creatinine 0.80 eGFR >90 Calcium 7.9 (*) Albumin 3.0 (*) Alkaline Phosphatase 58 Total Protein 5.5 (*) AST 32 Bilirubin, Total <0.2 ALT 13 Anion Gap 10 SARS-COV-2 AND INFLUENZA A/B PCR - Normal Flu A Result Not Detected Flu B Result Not Detected Coronavirus 2018, PCR Not Detected Narrative: This assay has received FDA Emergency Use Authorization (EUA) and is only authorized for the duration of time that circumstances exist to justify the authorization of the emergency use of in vitro diagnostic tests for the detection of SARS-CoV-2 virus and/or diagnosis of COVID-19 infection under sec tion 564(b)(1) of the Act, 21 U.S.C. 360bbb-3(b)(1). Testing for SARS-CoV-2 is only recommended forpatients who meet current clinical and/or epidemiological criteria as defined by federal, state, orlocal public health directives. This assay is an in vitro diagnostic nucleic acid amplification test for the qualitative detection of SARS-CoV-2, Influenza A, and Influenza B from nasopharyngeal specimens and has been validated for use at [facility]. Negative results do not preclude COVID-19 infections or Influenza A/B infections, and should not be used as the sole basis for diagnosis, treatment, or other management decisions. If Influenza A/B and RSV PCR results are negative, testing for Parainfluenza virus, Adenovirus and Metapneumovirus is routinely performed for [facility] pediatric oncology and intensive care inpatients, and is available on other patients by placing anadd-on request. CBC WITH AUTO DIFFERENTIAL COMPREHENSIVE METABOLIC PANEL CT abdomen pelvis w IV contrast (Results Pending) FL upper GI single contrast w small bowel follow through (Results Pending) Considerations/further MDM: Patient is a 32-year-old female with history of gastric bypass, recent vascular surgery with Dr. Magaña transferred ER to ER from [place] for further evaluation of her abdominal pain and nausea and vomiting. Patient was stable upon arrival to the ER alert and oriented able to provide adequate history. Her vital signs were within normal limits. She was given Compazine and started on fluids as directed by a vascular surgeon. Orders were placed by vascular surgery and myself as directed by their request. She remained stable during the ER visit. She was admitted to vascular surgery with GI consult for further treatment and care of her abdominal pain and intractable nausea and vomiting. I spoke with Dr. Magaña. We thoroughly discussed the history, physical exam, laboratory and imaging studies, as well as, emergency department course. Based upon that discussion, we've decided to admit for further observation and evaluation of their abdominal pain. As I have deemed necessary from their history, physical and studies, I have considered and evaluated for the following diagnoses: ACUTE APPENDICITIS, BOWEL OBSTRUCTION, CHOLECYSTITIS, DIVERTICULITIS, INCARCERATED HERNIA, MESENTERIC ISCHEMIA, PANCREATITIS, or PERFORATED BOWEL or ULCER, ACUTE ABDOMEN, SPLENIC INJURY, INTERNAL BLEEDING. Procedure Procedures Leatha Paul PA-C 03/16/23 7[facility] Work Phone: [phone] 657-802201-29-2024 Hospital Discharge instructions Patient Education 03/15/2023 18:18:58 Abdominal Pain, Adult Abdominal Pain, Adult Pain [...] Follow these instructions at home: Medicines Take oleg-fyi-fjmyova and prescription medicines only as told by [...] Watch your condition for any changes. Take bvlz-ema-yktwzgr and prescription medicines only as told by [...] provider. Document Revised: 03/22/2020 Document Reviewed: 06/12/2019 [employer] Patient Education 2022 [employer]. Follow Up Care 03/15/2023 11:45:15 With:Your surgeon Dr. Magaña Address:Unknown When:03/16/2023 17:30:59 [facility]01-29-2024 Evaluation + Plan noteExtracted from: Title:ED Note Author:Earnest Jett DO Date:02/16 11/08 Abdominal pain (R10.9: Unspe cified abdominal pain) Ordered: acetaminophen-oxycodone, 1 tab(s), Oral, q6hr for 3 day(s), 10 tab(s), Refill(s) 0 Nausea (R11.0: Nausea) Orders: Al hydroxide/Mg hydroxide/simethicone, 30 mL, Susp-Oral, Oral, Once, Stop date 03/15/23 16:19:00 EST, STAT, Start date 03/15/23 16:19:00 EST atropine/hyoscyamine/PB/scopolamine, 10 mL, Elixir, Oral, Once, Stop date 03/15/23 16:19:00 EST, STAT, Start date 03/15/23 16:19:00 EST HYDROmorphone, 1 mg = 1 mL, Injection, IV Push, Once, Stop date 03/15/23 16:19:00 EST, STAT, Start date 03/15/23 16:19:00 EST, 03/15/23 16:19:00 EST metoclopramide, 10 mg = 2 mL, Injection, IV Push, Once, Stop date 03/15/23 16:34:00 EST, STAT, Start date 03/15/23 16:34:00 EST, 03/15/23 16:34:00 EST morphine, 4 mg = 1 mL, Injection, IV Push, Once, Stop date 03/15/23 14:44:00 EST, STAT, Start date 03/15/23 14:44:00 EST, 03/15/23 14:44:00 EST morphine, 8 mg = 2 mL, Injection, IntraMuscular, Once, Stop date 03/15/23 13:01:00 EST, STAT, Start date 03/15/23 13:01:00 EST, 03/15/23 13:01:00 EST ondansetron, 4 mg = 1 tab(s), Oral, q6hr, PRN Nausea, Take one tab by mouth every six hours as needed for nausea, # 10 tab(s), Refills(s) 0 ondansetron, 4 mg = 2 mL, Injection, IV Push, Once, Stop date 03/15/23 14:44:00 EST, STAT, Start date 03/15/23 14:44:00 EST, 03/15/23 14:44:00 EST ondansetron, 4 mg = 2 mL, Injection, IV Push, Once, Stop date 03/15/23 12:08:00 EST, STAT, Start date 03/15/23 12:08:00 EST, 03/15/23 12:08:00 EST pantoprazole, 40 mg = 10 mL, Injection, IV Push, Once, Stop date 03/15/23 16:10:00 EST, STAT, Start date 03/15/23 16:10:00 EST, 03/15/23 16:10:00 EST Sodium Chloride 0.9% intravenous solution, 1,000 mL, Soln-IV, IV, Once, Stop date 03/15/23 12:08:00 EST, STAT, Start date 03/15/23 12:08:00 EST, Infuse over 61, minute(s) Sodium Chloride 0.9% intravenous solution 1,000 mL, 1,000 mL, IV, 1,000 mL/hr, STAT, Start date 03/15/23 16:10:00 EST, 1 hour(s), Total volume (mL): 1,000, 85 kg, 1.99, m2 Basic Metabolic Panel BB Draw & Hold CBC w/ Auto Diff CT Abdomen/Pelvis w/o Contrast ECG 12 Lead Adult ED Cardiac Monitoring eGFR Extra Green Li Tube Extra Lav Tube Hepatic Function Panel Lactic Acid Lipase Level PT & PTT Troponin 0 Hr. UA With Cult Reflex XR Chest Single View Future Appointments Appointment Date:08/04/2023 09:45:00 AM Scheduled Provider:Nasim JOHNSON, Rajni Ballesteros Location:[facility] Appointment Type:URO Office Visit Future Scheduled Tests Radiology* US Renal 06/10/22 [facility]01-24-2024 Hospital Discharge instructions* Discharge Instr - Diet* Yue German, RN - 03/10/2023 3:19 PM EST Regular [facility]: [phone] History of Present illness Narrative* Keesha Jack - 03/10/2023 2:30 PM EST Spiritual Care Visit Clinical Encounter Type Visited With: Patient Routine Visit: Introduction Continue Visiting: No Values/Beliefs Spiritual Requests During Hospitalization: Blesssing. Going home today Sacramental Encounters Communion: Does not want communion Communion Given Indicator: No Sacrament of Sick-Anointing: Patient declined anointing Keesha Jack * ILIANA Morrell - 03/10/2023 1:58 PM EST Pt has been cleared by vascular. Update: Pt cleared for dc. Updates ent to [facility] who the pt has already been active with, F2F, dc summary and AVS sent via [employer], [facility] in 1-2 days. Pt ok to dc. 03/10/23 6718 Discharge Planning Patient expects to be discharged to: [facility] * Tiffanie Mendez APRN-BETH - 03/10/2023 11:32 AM EST Images from the original note were not included. Abbey Garcia is a 32 y.o. female on day 5 of admission presenting with Median arcuate ligament syndrome (CMS/HCC). Subjective Patient in no acute distress on bedside exam Abdominal incision site well coapted with subcutaneous sutures and surgical glue. No erythema, mildly tender Diet has been advanced, she is tolerating fruits, cottage cheese and liquids. Passing flatus Ambulating the halls Objective Last Recorded Vitals 03/09/2023 7:22 AM 03/09/2023 11:00 AM 03/09/2023 3:54 PM 03/09/2023 7:32 PM 03/09/2023 11:59 PM 03/10/2023 3:29 AM 03/10/2023 9:04 AM Vitals Systolic 121 130 129 124 134 131 126 Diastolic 72 69 79 83 92 89 87 Heart Rate 79 76 68 68 66 80 67 Temp 36.9 C (98.4 F) 36.8 C (98.2 F) 36.6 C (97.9 F) 36.7 C (98.1 F) 36.5 C (97.7 F) 36.4 C (97.5 F) 36.9 C (98.4 F) Resp 18 18 18 16 17 17 17 Relevant Results Results for orders placed or performed during the hospital encounter of 03/05/23 (from the past 24 hour(s)) POCT GLUCOSE Result Value Ref Range POCT Glucose 83 74 - 99 mg/dL Stool Pathogen Panel, PCR Specimen: Stool Result Value Ref Range Campylobacter Group Not Detected Not Detected Salmonella species Not Detected Not Detected Shigella species Not Detected Not Detected Vibrio Group Not Detected Not Detected Yersinia Enterocolitica Not Detected Not Detected Shiga Toxin 1 Not Detected Not Detected Shiga Toxin 2 Not Detected Not Detected Norovirus GI/GII Not Detected Not Detected Rotavirus A Not Detected Not Detected C. difficile, PCR Specimen: Stool Result Value Ref Range C. difficile, PCR Not Detected Not Detected POCT GLUCOSE Result Value Ref Range POCT Glucose 91 74 - 99 mg/dL POCT GLUCOSE Result Value Ref Range POCT Glucose 82 74 - 99 mg/dL POCT GLUCOSE Result Value Ref Range POCT Glucose 79 74 - 99 mg/dL POCT GLUCOSE Result Value Ref Range POCT Glucose 84 74 - 99 mg/dL CBC Result Value Ref Range WBC 4.0 (L) 4.4 - 11.3 x10*3/uL nRBC 0.0 0.0 - 0.0 /100 WBCs RBC 3.45 (L) 4.00 - 5.20 x10*6/uL Hemoglobin 10.6 (L) 12.0 - 16.0 g/dL Hematocrit 31.3 (L) 36.0 - 46.0 % MCV 91 80 - 100 fL MCH 30.7 26.0 - 34.0 pg MCHC 33.9 32.0 - 36.0 g/dL RDW 12.9 11.5 - 14.5 % Platelets 215 150 - 450 x10*3/uL Basic Metabolic Panel Result Value Ref Range Glucose 89 65 - 99 mg/dL Sodium 141 133 - 145 mmol/L Potassium 3.7 3.4 - 5.1 mmol/L Chloride 108 (H) 97 - 107 mmol/L Bicarbonate 22 (L) 24 - 31 mmol/L Urea Nitrogen 4 (L) 8 - 25 mg/dL Creatinine 0.60 0.40 - 1.60 mg/dL eGFR >90 >60 mL/min/1.73m*2 Calcium 8.0 (L) 8.5 - 10.4 mg/dL Anion Gap 11 <=19 mmol/L POCT GLUCOSE Result Value Ref Range POCT Glucose 109 (H) 74 - 99 mg/dL Physical Exam General: Pt is alert and oriented x 3. Pleasant, conversive HEENT: Head is atraumatic, normocephalic. Cardiac: Normal S1-S2. Regular rate and rhythm. No murmurs. Respiratory: Lungs clear to auscultation. No adventitious sounds. Abdomen: Soft, nondistended, nontender. Bowel sounds x4 quadrants. Midline abdominal incision well-approximated. No surrounding tissue erythema or induration. Pulse exam: Palpable brachial and radial pulses bilaterall. Palpable femoral pulses bilaterally. Extremities: No significant edema noted. Extremities are warm to the touch and normal in color. No open wounds or sores. Neuro: Moves all extremities spontaneously. No focal deficits. Psych: Appropriate affect. Answers questions appropriately. Assessment/Plan Median arcuate ligament syndrome Postoperative pain Muscle spasm Post operative nausea Urinary retention Median arcuate ligament syndrome-patient status post release via laparotomy yesterday by Dr. Magaña. -Advised to continue ambulating her room in the halls -Continue IV Valium, discontinue -Continue oral pain medication -Diet advanced to regular, tolerating -IV fluids to continue maintenance fluid at a lower rate of 75 cc an hour. D5 half-normal saline with 20 of potassium. -Seen by urology for urinary retention. Advised Long discontinued morning of discharge and voidingtrial. -Seen by dietary, recommend protein drinks - Patient advised to see her GI doctor after discharge. Continue nightly TPN as previously prescribed - Prescription for p.o. Valium and Percocet sent to [facility] pharmacy - Follow-up orders placed for 1 month virtual appoint with Dr. Magaña - Work note faxed to her work as well as uploaded into [employer] - Cleared for discharge from vascular standpoint. * FLAQUITO Knight - 03/10/2023 9:54 AM EST Occupational Therapy OT Treatment Patient Name: Abbey Garcia Today's Date: 03/10/2023 Time Calculation Start Time: 848 Stop Time: 911 Time Calculation (min): 23 min Assessment: OT Assessment: Pt tolerated session well, expressing gratitude for new learned ADL adaptations for home going tasks. Pt meeting all goals at this time End of Session Communication: Bedside nurse End of Session Patient Position: Bed, 2 rail up (seated EOB with PCNA present) OT Assessment Results: Decreased ADL status, Decreased endurance, Decreased functional mobility, Decreased IADLs, Decreased trunk control for functional activities Plan: Treatment Interventions: ADL retraining, Functional transfer training, Endurance training, Patient/family training, Equipment evaluation/education, Neuromuscular reeducation, Compensatory technique education OT Frequency: 5 times per week OT Discharge Recommendations: Moderate intensity level of continued care, Other (Comment) OT - OK to Discharge: Yes Treatment Interventions: ADL retraining, Functional transfer training, Endurance training, Patient/family training, Equipment evaluation/education, Neuromuscular reeducation, Compensatory technique education Subjective Previous Visit Info: OT Last Visit OT Received On: 03/10/23 General: General Prior to Session Communication: Bedside nurse Patient Position Received: Bed, 3 rail up General Comment: cleared for therapy per RN. Pt supine in bed and agreeable for tx session Precautions: Medical Precautions: Fall precautions, Abdominal precautions Post-Surgical Precautions: Abdominal surgery precautions Vital Signs: Pain: Pain Assessment Pain Assessment: FLACC (Face, Legs, Activity, Cry, Consolability) Pain Score: 4 Pain Type: Acute pain, Surgical pain Pain Location: Abdomen Objective Activities of Daily Living: Grooming Grooming Level of Assistance: Setup, Distant supervision Grooming Where Assessed: Standing sinkside Grooming Comments: oral hygiene, hair and face washing standing sinkside with increased time required UE Dressing UE Dressing Level of Assistance: Setup UE Dressing Comments: s/u to don/doff gown with tele management LE Dressing LE Dressing: Yes LE Dressing Adaptive Equipment: Glove Pairer, Sock aide Pants Level of Assistance: Setup, Minimum assistance Sock Level of Assistance: Setup, Close supervision Shoe Level of Assistance: Independent LE Dressing Where Assessed: Chair LE Dressing Comments: min A to don pants with use of AE with assist to bring long throughout pant leg. Don/doff socks with use of AE following education with pt demonstrating good carryover of skills. Increased time required for education + carryover Functional Standing Tolerance: Time: 16 min Functional Standing Tolerance Comments: tolerated standing throughout ADL tasks in restroom Bed Mobility/Transfers: Bed Mobility Bed Mobility: Yes Bed Mobility 1 Bed Mobility 1: Supine to sitting Level of Assistance 1: Independent Bed Mobility Comments 1: increased time required d/t abdominal pain/fatigue Transfers Transfer: Yes Transfer 1 Transfer From 1: Sit to Transfer to 1: Stand Technique 1: Sit to stand, Stand to sit Transfer Device 1: Walker Transfer Level of Assistance 1: Independent Trials/Comments 1: independent transfers Shower Transfers Shower Transfer Type: To and from Shower Transfer to: Standing Shower Transfers: Supervision Shower Transfers Comments: pt educated on proper shower transfer technique for homegoing and educated on potential DME to utilize for shower tasks at home (grab bar, shower chair). Standing Balance: Static Standing Balance Static Standing-Level of Assistance: Independent Static Standing-Comment/Number of Minutes: good Dynamic Standing Balance Dynamic Standing-Balance: Forward lean, Reaching for objects, Reaching across midline Dynamic Standing-Comments: fair+/good Therapy/Activity: Therapeutic Activity Therapeutic Activity Performed: Yes Therapeutic Activity 1: participated in functional mobility a short household distance at [facility] for safety with close S. Pt demonstrating fair+/good standing balance with increased fatigue noted throughout task Outcome Measures:[facility] Daily Activity Putting on and taking off regular lower body clothing: A little Bathing (including washing, rinsing, drying): A little Putting on and taking off regular upper body clothing: A little Toileting, which includes using toilet, bedpan or urinal: None Taking care of personal grooming such as brushing teeth: None Eating Meals: None Daily Activity - Total Score: 21 Education Documentation Precautions, taught by FLAQUITO Knight at 03/10/2023 9:54 AM. Learner: Patient Readiness: Acceptance Method: Explanation Response: Verbalizes Understanding, Demonstrated Understanding ADL Training, taught by FLAQUITO Knight at 03/10/2023 9:54 AM. Learner: Patient Readiness: Acceptance Method: Explanation Response: Verbalizes Understanding, Demonstrated Understanding Precautions, taught by FLAQUITO Knight at 03/09/2023 3:01 PM. Learner: Patient Readiness: Acceptance Method: Explanation Response: Verbalizes Understanding, Demonstrated Understanding ADL Training, taught by FLAQUITO Knight at 03/09/2023 3:01 PM. Learner: Patient Readiness: Acceptance Method: Explanation Response: Verbalizes Understanding, Demonstrated Understanding Education Comments No comments found. Problem: OT Goals Goal: Pt will complete all ADL's with mod indep/indep using AE as needed for abdominal precautions. Outcome: Met Goal: Pt will tolerate functional mobility for a household distance using a device or no device with mod indep. Outcome: Met Goal: Pt will verbalize/demonstrate understanding of abdominal precautions during all functional tasks by discharge. Outcome: Met * Nabila Moore RDN, LD - 03/09/2023 3:11 PM EST Nutrition Follow up Note Nutrition Assessment Pt s/p median release via laparotomy (03/05). Spoke with RN and APPLICATION SECURITY ARCHITECT regarding plans for consult. Theplan is for Pt to continue a trial with Oral intake. Recommend initiating Ensure High Protein as this is the lowest osmolality ONS that might be easiest for Pt to tolerate. If Pt unable to tolerate PO intake, recommend trial of enteral feeding. Recommendations provided below. Will continue to follow and monitor for tolerance. Nutrition History: Food and Nutrient History: NPO. on home TPN x 12 daily. she is unsure of TPN formula she recieves. Anthropometrics: Ht: 167.6 cm (5' 5.98 ), Wt: 84.2 kg (185 lb 10 oz), BMI: 29.98 IBW/kg (Dietitian Calculated): 59.09 kg Percent of IBW: 142 % Weight Change: Weight History / % Weight Change: usual wt 185-190# Nutrition Focused Physical Exam Findings: Subcutaneous Fat Loss Orbital Fat Pads: Well nourshed (slightly bulging fat pads) Buccal Fat Pads: Well nourished (full, rounded cheeks) Muscle Wasting Temporalis: Well nourished (well-defined muscle) Pectoralis (Clavicular Region): Well nourished (clavicle not visible) Deltoid/Trapezius: Well nourished (rounded appearance at arm, shoulder, neck) Interosseous: Well nourished (muscle bulges) Physical Findings (Nutrition Deficiency/Toxicity) Skin: Positive (abd surgical incision) Nutrition Significant Labs: Lab Results Component Value Date WBC 6.8 03/09/2023 HGB 11.7 (L) 03/09/2023 HCT 34.6 (L) 03/09/2023 PLT 226 03/09/2023 ALT 13 02/12/2023 AST 21 02/12/2023 NA 135 03/09/2023 K 3.7 03/09/2023 CL 105 03/09/2023 CREATININE 0.60 03/09/2023 BUN <3 (L) 03/09/2023 CO2 20 (L) 03/09/2023 HGBA1C 5.1 11/08/2019 Current Facility-Administered Medications: acetaminophen (Tylenol) tablet 650 mg, 650 mg, oral, q4h PRN OR acetaminophen (Tylenol) oral liquid 650 mg, 650 mg, oral, q4h PRN OR acetaminophen (Tylenol) suppository 650 mg, 650 mg, rectal, q4h PRN, Chrissy Harris PA-C albuterol 2.5 mg /3 mL (0.083 %) nebulizer solution 3 mL, 3 mL, nebulization, q2h PRN, Karma Sharpe MD busPIRone (Buspar) tablet 10 mg, 10 mg, oral, BID, Chrissy Harris PA-C, 10 mg at 03/09/23 0821 dextrose 10 % in water (D10W) infusion, 0.3 g/kg/hr, intravenous, Once PRN, Chrissy Harris PA-C dextrose 50 % injection 25 g, 25 g, intravenous, q15 min PRN, Chrissy Harris PA-C diazePAM (Valium) injection 5 mg, 5 mg, intravenous, q6h PRN, Chrissy Harris PA-C, 5 mg at 03/09/23 1012 diphenhydramine-zinc acetate cream, , Topical, TID PRN, JAMA Granger enoxaparin (Lovenox) syringe 40 mg, 40 mg, subcutaneous, Daily, Chrissy Harris PA-C, 40 mg at 03/09/23 0821 escitalopram (Lexapro) tablet 20 mg, 20 mg, oral, Daily, Chrissy Harris PA-C, 20 mg at 03/09/23 0821 famotidine (Pepcid) tablet 20 mg, 20 mg, oral, BID, 20 mg at 03/09/23 0821 OR famotidine PF (Pepcid) injection 20 mg, 20 mg, intravenous, BID, Chrissy Harris PA-C, 20 mg at 03/06/23 0854 ferrous sulfate (325 mg ferrous sulfate) tablet 1 tablet, 1 tablet, oral, Daily with breakfast, Chrissy Harris PA-C, 1 tablet at 03/09/23 0820 glucagon (Glucagen) injection 1 mg, 1 mg, intramuscular, q15 min PRN, Chrissy Harris PA-C HYDROmorphone (Dilaudid) injection 0.5 mg, 0.5 mg, intravenous, q4h PRN, JAMA Judd, 0.5 mg at 03/09/23 1338 hydrOXYzine HCL (Atarax) tablet 25 mg, 25 mg, oral, Daily PRN, Chrissy Harris PA-C hydrOXYzine HCL (Atarax) tablet 25 mg, 25 mg, oral, q6h PRN, JAMA Granger, 25 mg at 03/08/23 1306 insulin lispro (HumaLOG) injection 0-5 Units, 0-5 Units, subcutaneous, q4h, Chrissy Harris PA-C, 1Units at 03/08/23 1716 levothyroxine (Synthroid, Levoxyl) tablet 100 mcg, 100 mcg, oral, Daily, Chrissy Harris PA-C, 100 mcg at 03/09/23 0544 liothyronine (Cytomel) tablet 5 mcg, 5 mcg, oral, Daily, Chrissy Harris PA-C, 5 mcg at 03/09/23 0823 mirtazapine (Remeron) tablet 15 mg, 15 mg, oral, Nightly, Chrissy Harris PA-C, 15 mg at 03/08/23 2122 ondansetron (Zofran) tablet 4 mg, 4 mg, oral, q8h PRN OR ondansetron (Zofran) injection 4 mg, 4mg, intravenous, q8h PRN, Chrissy Harris PA-C, 4 mg at 03/09/23 0544 oxyCODONE-acetaminophen (Percocet) 5-325 mg per tablet 1 tablet, 1 tablet, oral, q4h PRN, JAMA Judd oxyCODONE-acetaminophen (Percocet) 5-325 mg per tablet 2 tablet, 2 tablet, oral, q4h PRN, JAMA Judd, 2 tablet at 03/09/23 1102 polyethylene glycol (Glycolax, Miralax) packet 17 g, 17 g, oral, Daily PRN, Chrissy Harris PA-C prochlorperazine (Compazine) tablet 10 mg, 10 mg, oral, q6h PRN, 10 mg at 03/08/23 1119 OR prochlorperazine (Compazine) injection 10 mg, 10 mg, intravenous, q6h PRN, 10 mg at 03/07/23 1934 ORprochlorperazine (Compazine) suppository 25 mg, 25 mg, rectal, q12h PRN, Chrissy Harris PA-C sodium chloride 0.45 % with KCl 20 mEq/L infusion, 75 mL/hr, intravenous, Continuous, JAMA Lynn, Last Rate: 75 mL/hr at 03/09/23 0145, 75 mL/hr at 03/09/23 0145 topiramate (Topamax) tablet 50 mg, 50 mg, oral, BID, Chrissy Harris PA-C, 50 mg at 03/09/23 0821 Dietary Orders (From admission, onward) Start Ordered 03/08/23 1018 Adult diet Regular Diet effective now Question: Diet type Answer: Regular 03/08/23 1017 Estimated Needs: Estimated Energy Needs Total Energy Estimated Needs (kCal): 1773 kCal Total Estimated Energy Need per Day (kCal/kg): 30 kCal/kg Method for Estimating Needs: IBW Estimated Protein Needs Total Protein Estimated Needs (g): 71 g Total Protein Estimated Needs (g/kg): 1.2 g/kg Method for Estimating Needs: IBW Estimated Fluid Needs Total Fluid Estimated Needs (mL): 1773 mL Method for Estimating Needs: 1 ml/kcal Nutrition Diagnosis Nutrition Diagnosis: Malnutrition Diagnosis Patient has Malnutrition Diagnosis: No Nutrition Diagnosis Patient has Nutrition Diagnosis: Yes Diagnosis Status (1): Ongoing Nutrition Diagnosis 1: Inadequate oral intake Related to (1): decreased ability to consume sufficient energy As Evidenced by (1): conditions associated with dx Nutrition Interventions/Recommendations Nutrition Interventions and Recommendations: Recommend Ensure High Protein TID, Provides 160 kcals and 16g Protein per carton. If not tolerated,please see recommendations for tube feeding and TPN highlighted below. Nutrition Prescription: Individualized Nutrition Prescription Provided for : 1773 kcals and 71g protein to be provided via diet or via alternate nutrition Nutrition Interventions: Food and/or Nutrient Delivery Interventions Interventions: Meals and snacks, Parenteral nutrition/ IV fluids, Enteral intake, Medical food supplement Meals and Snacks: General healthful diet Goal: Provide diet as ordered Enteral Intake: Other (Comment) (Recommend trying Enteral nutrition, if PO intake of Oral nutritionsupplements isn't tolerated.) Goal: Recommend trial of Enteral nutrition, if PO intake of Oral nutrition supplements isn't tolerated. Osmolite 1.5 @ goal rate of 45 mL/hr to provide 1620 kcals, 68g Protein, and 823 mL free water.Provide 135 mL water flushes q4hrs to provide adequate hydration. If initiated, start at 10 mL/hr and increase by 10 mL/hr q 8 hrs until goal rate met. Parenteral Nutrition/IV Fluids: Modify composition of parenteral nutrition, Modify rate of parenteral nutrition Formula: Custom (if unable to tolerate oral diet or tubefeeding, provide Clinimix 5/20 @ rate of 83ml/hr x 24 hrs to provide 1760 kcals and 100g protein in total volume of 2000 ml/day. GIR: 3.3 mg/kg/min.) Medical Food Supplement: Commercial beverage Goal: Ensure High Protein TID, Provides 160 kcals and 16g Protein per carton Education Documentation No documentation found. Nutrition Monitoring and Evaluation Monitoring/Evaluation: Food/Nutrient Related History Monitoring Monitoring and Evaluation Plan: Energy intake, Enteral and parenteral nutrition intake Energy Intake: Estimated energy intake Criteria: Patient to meet >/= 50% of needs via Oral feeds, if Pt tolerates Enteral and Parenteral Nutrition Intake: Enteral nutrition formula/solution, Parenteral nutrition formula/solution Criteria: Monitor for changes in diet Additional Plans: Monitor for tolerance of PO intake Body Composition/Growth/Weight History Monitoring and Evaluation Plan: Weight Weight: Measured weight Criteria: Pt will maintain wt during hospitalization __ Time Spent/Follow-up: Follow Up Time Spent (min): 60 minutes Last Date of Nutrition Visit: 03/09/23 Nutrition Follow-Up Needed?: 3-5 days Follow up Comment: 03/12/23 * FLAQUITO Knight - 03/09/2023 3:02 PM EST Occupational Therapy OT Treatment Patient Name: Abbey Garcia Today's Date: 03/09/2023 Time Calculation Start Time: 1421 Stop Time: 1444 Time Calculation (min): 23 min Assessment: OT Assessment: pt tolerated session well, 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 Pt would benefit from continued skilled OT to address these needs End of Session Communication: Bedside nurse End of Session Patient Position: Up in chair OT Assessment Results: Decreased ADL status, Decreased endurance, Decreased functional mobility, Decreased IADLs, Decreased trunk control for functional activities Plan: Treatment Interventions: ADL retraining, Functional transfer training, Endurance training, Patient/family training, Equipment evaluation/education, Neuromuscular reeducation, Compensatory technique education OT Frequency: 5 times per week OT Discharge Recommendations: Moderate intensity level of continued care, Other (Comment) OT - OK to Discharge: Yes Treatment Interventions: ADL retraining, Functional transfer training, Endurance training, Patient/family training, Equipment evaluation/education, Neuromuscular reeducation, Compensatory technique education Subjective Previous Visit Info: OT Last Visit OT Received On: 03/09/23 General: General Prior to Session Communication: Bedside nurse Patient Position Received: Up in chair General Comment: cleared for therapy per RN. Pt seated in chair upon arrival, agreeable to tx session Precautions: Medical Precautions: Fall precautions, Abdominal precautions Pain: Pain Assessment Pain Assessment: 0-10 Pain Score: 6 Pain Type: Acute pain, Surgical pain Pain Location: Abdomen Objective Activities of Daily Living: LE Dressing LE Dressing: Yes LE Dressing Adaptive Equipment: Glove Pairer, Sock aide Pants Level of Assistance: Setup, Minimum assistance Sock Level of Assistance: Setup, Close supervision Shoe Level of Assistance: Independent LE Dressing Where Assessed: Chair LE Dressing Comments: min A to don pants with use of AE with assist to bring long throughout pant leg. Don/doff socks with use of AE following education with pt demonstrating good carryover of skills. Increased time required for education + carryover Bed Mobility/Transfers: Transfers Transfer: Yes Transfer 1 Transfer From 1: Sit to Transfer to 1: Stand Technique 1: Sit to stand Transfer Level of Assistance 1: Independent Trials/Comments 1: sit>stand from chair to don pants over hips Standing Balance: Static Standing Balance Static Standing-Level of Assistance: Independent Static Standing-Comment/Number of Minutes: good IADL's: [employer] Community Re-entry: pt expressing concern for return to home and work activities d/t precautions, pain, and fatigue. Homegoing advice provided to abside by precautions Outcome Measures:[facility] Daily Activity Putting on and taking off regular lower body clothing: A little Bathing (including washing, rinsing, drying): A little Putting on and taking off regular upper body clothing: A little Toileting, which includes using toilet, bedpan or urinal: A little Taking care of personal grooming such as brushing teeth: None Eating Meals: None Daily Activity - Total Score: 20 Education Documentation Precautions, taught by FLAQUITO Knight at 03/09/2023 3:01 PM. Learner: Patient Readiness: Acceptance Method: Explanation Response: Verbalizes Understanding, Demonstrated Understanding ADL Training, taught by FLAQUITO Knight at 03/09/2023 3:01 PM. Learner: Patient Readiness: Acceptance Method: Explanation Response: Verbalizes Understanding, Demonstrated Understanding Education Comments No comments found. Problem: OT Goals Goal: Pt will complete all functional transfers and mobility with mod indep/indep using a device orno device. Outcome: Met Problem: OT Goals Goal: Pt will complete all ADL's with mod indep/indep using AE as needed for abdominal precautions. Outcome: Progressing Goal: Pt will tolerate functional mobility for a household distance using a device or no device with mod indep. Outcome: Progressing Goal: Pt will verbalize/demonstrate understanding of abdominal precautions during all functional tasks by discharge. Outcome: Progressing * Alicia Toro APRN-APPLICATION SECURITY ARCHITECT - 03/09/2023 10:50 AM EST Abbey Garcia is a 32 y.o. female on day 4 of admission presenting with Median arcuate ligament syndrome (CMS/HCC). Subjective Patient seen and examined. Awake/alert/oriented. Resting in bed. Denies chest pain, shortness of breath, fevers, or chills. Still having nausea and dry heaves. Reports over ten episodes of diarrhea throughout the night, orders placed for stool studies and stop Senakot. Objective Last Recorded Vitals BP 121/72 (BP Location: Left arm, Patient Position: Sitting) Pulse 79 Temp 36.9 C (98.4 F) (Oral) Resp 18 Wt 84.2 kg (185 lb 10 oz) SpO2 97% Intake/Output last 3 Shifts: Intake/Output Summary (Last 24 hours) at 03/09/2023 1050 Last data filed at 03/09/2023 0900 Gross per 24 hour Intake 1336 ml Output 2900 ml Net -1564 ml Admission Weight Weight: 82.1 kg (181 lb) (03/05/23 0642) Daily Weight 03/09/23 : 84.2 kg (185 lb 10 oz) Image Results XR chest 1 view Narrative: Interpreted By: Sara Zarate, STUDY: XR CHEST 1 VIEW; 03/06/2023 7:32 am INDICATION: Signs/Symptoms:post op COMPARISON: None ACCESSION NUMBER(S): [id number] ORDERING CLINICIAN: JASON FOSTER TECHNIQUE: Frontal and lateral chest radiographs. FINDINGS: Enteric tube is seen with the tip overlying the expected location of the stomach. Right upper extremity PICC is seen with the tip overlying the distal SVC. The cardiomediastinal silhouette is unremarkable. The lungs are clear. No pleural effusion is identified. The osseous structures are intact. Impression: Appliance positioning as noted above. No consolidation. Signed by: Sara Zarate 03/06/2023 1:48 PM Dictation workstation: [id number] Physical Exam Constitutional: Appearance: Normal appearance. HENT: Head: Normocephalic and atraumatic. Cardiovascular: Rate and Rhythm: Normal rate and regular rhythm. Pulses: Normal pulses. Heart sounds: Normal heart sounds. Pulmonary: Effort: Pulmonary effort is normal. Breath sounds: Normal breath sounds. Abdominal: General: Bowel sounds are normal. Palpations: Abdomen is soft. Tenderness: There is abdominal tenderness. Skin: General: Skin is warm and dry. Comments: Surgical ABD with incision well approximated, no erythema or drainage Neurological: General: No focal deficit present. Mental Status: She is alert and oriented to person, place, and time. Results Lab Results Component Value Date GLUCOSE 98 03/09/2023 CALCIUM 8.3 (L) 03/09/2023 NA 135 03/09/2023 K 3.7 03/09/2023 CO2 20 (L) 03/09/2023 CL 105 03/09/2023 BUN <3 (L) 03/09/2023 CREATININE 0.60 03/09/2023 Lab Results Component Value Date WBC 6.8 03/09/2023 HGB 11.7 (L) 03/09/2023 HCT 34.6 (L) 03/09/2023 MCV 91 03/09/2023 PLT 226 03/09/2023 Assessment/Plan Median arcuate ligament syndrome s/p surgery Hypothyroidism, GERD, PUD, IBS Depression, anxiety, asthma Median arcuate ligament syndrome S/p median release via laparotomy by Dr. Magaña Postop management per vascular team Antiemetics as needed, advance diet as tolerated Pain management Incentive spirometer Bowel regimen DVT prophylaxis Diarrhea Over 10 episodes Check for C diff, precautions Stool studies Stop Senakot Urinary retention Long replaced Consult urology, appreciate recs Hypothyroidism Resume home medication GERD/PUD Pepcid IBS Bowel regimen Depression Home medications resumed Plan Pain management/bowel regimen Out of bed as tolerated Antiemetics Incentive spirometer Vascular surgery following, appreciate recs Urology consulted, appreciate recs DVT prophylaxis: Lovenox CBC and BMP in AM Vascular note reviewed, dietary consulted and concern that she may need TPN on discharge JAMA Granger * Malka Manning PTA - 03/09/2023 10:45 AM EST Physical Therapy Physical Therapy Treatment Patient Name: Abbey Garcia Today's Date: 03/09/2023 Time Calculation Start Time: 929 Stop Time: 952 Time Calculation (min): 23 min Assessment/Plan PT Assessment End of Session Communication: Bedside nurse End of Session Patient Position: Bed, 3 rail up PT Plan Inpatient/Swing Bed or Outpatient: Inpatient PT Plan Treatment/Interventions: Bed mobility, Transfer training, Gait training, Stair training, Balance training, Strengthening, Therapeutic exercise, Therapeutic activity PT Plan: Skilled PT PT Frequency: 6 times per week PT Discharge Recommendations: Low intensity level of continued care Equipment Recommended upon Discharge: Wheeled walker PT Recommended Transfer Status: Contact guard PT - OK to Discharge: Yes General Visit Information: PT Visit PT Received On: 03/09/23 General Prior to Session Communication: Bedside nurse Patient Position Received: Bed, 3 rail up General Comment: Cleared by nursing to be seen for therapy, pt agreeable with tx, supine in bed upon arrival. Subjective Precautions: Precautions Post-Surgical Precautions: Abdominal surgery precautions Precautions Comment: Pt able to recall abdominal precautions Objective Pain: Pain Assessment Pain Assessment: 0-10 Pain Score: 4 Pain Type: Surgical pain Pain Location: Abdomen Treatments: Therapeutic Exercise Therapeutic Exercise Performed: No Therapeutic Activity Therapeutic Activity Performed: No Balance/Neuromuscular Re-Education Balance/Neuromuscular Re-Education Activity Performed: No Bed Mobility Bed Mobility: Yes Bed Mobility 1 Bed Mobility 1: Supine to sitting, Sitting to supine Level of Assistance 1: Independent Bed Mobility Comments 1: Good ability to perform log roll in/out of bed. Ambulation/Gait Training Ambulation/Gait Training Performed: Yes Ambulation/Gait Training 1 Surface 1: Level tile Device 1: Rolling walker Assistance 1: Modified independent Comments/Distance (ft) 1: 200' with wheeled walker, good christel speed, no LOB/gait abnormalities noted. Transfers Transfer: Yes Transfer 1 Transfer From 1: Sit to Transfer to 1: Stand Transfer Level of Assistance 1: Independent Stairs Stairs: Yes Stairs Rails 1: Left Assistance 1: Modified independent Comment/Number of Steps 1: Ascend/Descend 5 steps, 1 rail, non-reciprocating pattern. Outcome Measures: [facility] Basic Mobility Turning from your back to your side while in a flat bed without using bedrails: None Moving from lying on your back to sitting on the side of a flat bed without using bedrails: None Moving to and from bed to chair (including a wheelchair): None Standing up from a chair using your arms (e.g. wheelchair or bedside chair): None To walk in hospital room: None Climbing 3-5 steps with railing: A little Basic Mobility - Total Score: 23 Encounter Problems Encounter Problems (Active) Pain - Adult Encounter Problems (Resolved) Mobility STG - Patient will ambulate 150' x 1 using rolling walker MOD INDEPENDENT (Met) Start: 03/06/23 Expected End: 03/20/23 Resolved: 03/09/23 STG - Patient will negotiate 4 stairs using B railings MOD INDEPENDENT (Met) Start: 03/06/23 Expected End: 03/20/23 Resolved: 03/09/23 Transfers STG - Patient to transfer to and from sit to supine SUPERVISION (Met) Start: 03/06/23 Expected End: 03/20/23 Resolved: 03/09/23 STG - Patient will transfer sit to and from stand SUPERVISION (Met) Start: 03/06/23 Expected End: 03/20/23 Resolved: 03/09/23 * Jason Foster APRN-BETH - 03/09/2023 10:24 AM EST Abbey Garcia is a 32 y.o. female on day 4 of admission presenting with Median arcuate ligament syndrome (CMS/HCC). Subjective Patient seen and examined. She is complaining of some diarrhea that started last evening. Her sennahas been discontinued. She is eating bits of food . She was on TPN previously since November 2022. Objective Physical Exam General: Pt is alert and oriented x 3. Pleasant, conversive HEENT: Head is atraumatic, normocephalic. Cardiac: Normal S1-S2. Regular rate and rhythm. No murmurs. Respiratory: Lungs clear to auscultation. No adventitious sounds. Abdomen: Soft, nondistended, nontender. Bowel sounds x4 quadrants. Midline abdominal incision well-approximated. No surrounding tissue erythema or induration. Pulse exam: Palpable brachial and radial pulses bilaterall. Palpable femoral pulses bilaterally. Extremities: No significant edema noted. Extremities are warm to the touch and normal in color. No open wounds or sores. Neuro: Moves all extremities spontaneously. No focal deficits. Psych: Appropriate affect. Answers questions appropriately. Last Recorded Vitals Blood pressure 121/72, pulse 79, temperature 36.9 C (98.4 F), temperature source Oral, resp. rate 18, height 1.676 m (5' 5.98 ), weight 84.2 kg (185 lb 10 oz), SpO2 97 %. Intake/Output last 3 Shifts: I/O last 3 completed shifts: In: 1913.5 (22.7 mL/kg) [P.O.:1346; I.V.:567.5 (6.7 mL/kg)] Out: 4550 (54 mL/kg) [Urine:4550 (1.5 mL/kg/hr)] Weight: 84.2 kg Relevant Results This patient has a central line Reason for the central line remaining today? Parenteral nutrition Assessment/Plan Median arcuate ligament syndrome Postoperative pain Muscle spasm Post operative nausea Urinary retention Median arcuate ligament syndrome-patient status post release via laparotomy yesterday by Dr. Magaña. She is experiencing some spasm type pain on the left side of abdomen with oral intake. Decreasing opioid intake -Advised to continue ambulating her room in the [place] -Senna discontinued due to patient's diarrhea. -Continue IV Valium, discontinue IV opioids -Encouraged oral pain medication -Diet advanced to regular -IV fluids were discontinued, however, patient is not taking in much in the way of oral intake. Will continue maintenance fluid at a lower rate of 75 cc an hour. D5 half-normal saline with 20 of potassium. -Continues to have issues with urinary retention. Will attempt Long removal today. Hopefully with decreasing opioid intake, this will resolve. -Will obtain dietary consult this patient's oral intake is inadequate. I suspect she will continue to need TPN postdischarge. I spent minutes in the professional and overall care of this patient. JAMA Lynn * ILIANA Morrell - 03/09/2023 9:24 AM EST [facility] state pt is already active with them and are able to continue to provide Rn for tpn and added PT. 03/09/23 0923 Discharge Planning Patient expects to be discharged to: [facility] * ILIANA Morrell - 03/08/2023 2:52 PM EST [facility]. Pt lives in a house with her and 3 kids in two story house with first floor setup. 5 steps to enter the house. Pt drives, works, independent for mobility. Pt wears glasses. Only other medical supplies at home are for TPN. Pts PCP is Dr Jaquan Morrow with [facility], prescriptions filled through [facility] in [place]. Discussion around dc planning needs with the pt stating she will probably benefit from home health PT. Referrals sent to homecare agencies that service where she lives, these agencies include [facility], [place], [address], [facility], [facility], [facility], await responses. 03/08/23 1452 Discharge Planning Patient expects to be discharged to: Home with [facility] * Aisha Khoury, PT - 03/08/2023 1:16 PM EST Physical Therapy Physical Therapy Treatment Patient Name: Abbey Garcia Today's Date: 03/08/2023 Time Calculation Start Time: 1215 Stop Time: 1245 Time Calculation (min): 30 min Assessment/Plan PT Assessment End of Session Communication: Bedside nurse Assessment Comment: pt demonstrating improved functional mobility tolerance and ease; Does well with use of FWW at this time End of Session Patient Position: Up in chair PT Plan Inpatient/Swing Bed or Outpatient: Inpatient PT Plan Treatment/Interventions: Bed mobility, Transfer training, Gait training, Stair training, Balance training, Strengthening, Therapeutic exercise, Therapeutic activity PT Plan: Skilled PT PT Frequency: 6 times per week PT Discharge Recommendations: Low intensity level of continued care Equipment Recommended upon Discharge: Wheeled walker PT Recommended Transfer Status: Contact guard PT - OK to Discharge: Yes General Visit Information: PT Visit PT Received On: 03/08/23 General Prior to Session Communication: Bedside nurse Patient Position Received: Up in chair Preferred Learning Style: visual, verbal General Comment: (cleared by nurse for therapy; pt agreeable to therapy; on room air.) Subjective Precautions: Precautions Hearing/Visual Limitations: wears glasses Medical Precautions: Fall precautions Post-Surgical Precautions: Abdominal surgery precautions Precautions Comment: (PT educated pt in post-op abdominal precautions) Vital Signs: Vital Signs Heart Rate: (!) 112 SpO2: 96 % Patient Position: Sitting Objective Pain: Pain Assessment Pain Assessment: 0-10 Pain Score: 6 Pain Location: Abdomen Pain Orientation: Upper Pain Interventions: (pain meds per nurse, abdominal binder PRN, splinting technique, positioning) Cognition: Cognition Orientation Level: Oriented X4 Postural Control: Extremity/Trunk Assessments: Activity Tolerance: Activity Tolerance Endurance: Decreased tolerance for upright activites Activity Tolerance Comments: amb with FWW tolerance improving Treatments: Therapeutic Exercise Therapeutic Exercise Performed: Yes Therapeutic Exercise Activity 1: seated joahnny AP/heel raises x 20 reps Therapeutic Exercise Activity 2: seated johanny LAQ's x 15 reps Therapeutic Exercise Activity 3: seated johanny marching x 15 reps Therapeutic Exercise Activity 4: seated johanny hip abd/add x 15 reps Therapeutic Exercise Activity 5: seated deep breathing exercises 2 sets of 5 to 7 reps Therapeutic Activity Therapeutic Activity Performed: Yes (see transfers, amb with FWW comments) Ambulation/Gait Training Ambulation/Gait Training Performed: Yes Ambulation/Gait Training 1 Surface 1: Level tile Device 1: Rolling walker Gait Support Devices: Other (Comment) (+ abdominal binder) Assistance 1: Contact guard Quality of Gait 1: (sow christel) Comments/Distance (ft) 1: pt amb 150 ft x 2 with FWW, + turns, contact guard of 1 for safety, verbal cues for erect posture and staying close to FWW at all times; O2 sat 98% with HR 108 bpm Transfers Transfer: Yes Transfer 1 Transfer From 1: Sit to Transfer to 1: Stand Technique 1: Sit to stand Transfer Level of Assistance 1: Contact guard, Minimal verbal cues Trials/Comments 1: contact guard of 1 for trunk up, verbal cues for proper johanny hand placement Transfers 2 Transfer From 2: Stand to Transfer to 2: Sit Technique 2: Stand to sit Transfer Level of Assistance 2: Contact guard, Minimal verbal cues Trials/Comments 2: contact guard of 1 for trunk down, verbal cues for reaching back with both handsfor arms of chair/grabbars by commode prior to attempting to sit Outcome Measures: [facility] Basic Mobility Turning from your back to your side while in a flat bed without using bedrails: A little Moving from lying on your back to sitting on the side of a flat bed without using bedrails: A little Moving to and from bed to chair (including a wheelchair): A little Standing up from a chair using your arms (e.g. wheelchair or bedside chair): A little To walk in hospital room: A little Climbing 3-5 steps with railing: A lot Basic Mobility - Total Score: 17 Education Documentation No documentation found. Education Comments No comments found. OP EDUCATION: Encounter Problems Encounter Problems (Active) Mobility STG - Patient will ambulate 150' x 1 using rolling walker MOD INDEPENDENT (Progressing) Start: 03/06/23 Expected End: 03/20/23 STG - Patient will negotiate 4 stairs using B railings MOD INDEPENDENT (Progressing) Start: 03/06/23 Expected End: 03/20/23 Pain - Adult Transfers STG - Patient to transfer to and from sit to supine SUPERVISION (Progressing) Start: 03/06/23 Expected End: 03/20/23 STG - Patient will transfer sit to and from stand SUPERVISION (Progressing) Start: 03/06/23 Expected End: 03/20/23 * FLAQUITO Knight - 03/08/2023 12:47 PM EST Occupational Therapy OT Treatment Patient Name: Abbey Garcia Today's Date: 03/08/2023 Time Calculation Start Time: 1208 Stop Time: 1232 Time Calculation (min): 24 min Assessment: OT Assessment: pt tolerated session well with increased abdominal pain with movement. Pt would benefit from continued skilled OT services to improve strength and functional tolerance to increase independence with ADL tasks and transfers End of Session Communication: Bedside nurse End of Session Patient Position: Bed, 2 rail up (pt seated at EOB awaiting arrival of PT) OT Assessment Results: Decreased ADL status, Decreased endurance, Decreased functional mobility, Decreased IADLs, Decreased trunk control for functional activities Plan: Treatment Interventions: ADL retraining, Functional transfer training, Endurance training, Patient/family training, Equipment evaluation/education, Neuromuscular reeducation, Compensatory technique education OT Frequency: 5 times per week OT Discharge Recommendations: Moderate intensity level of continued care, Other (Comment) OT - OK to Discharge: Yes Treatment Interventions: ADL retraining, Functional transfer training, Endurance training, Patient/family training, Equipment evaluation/education, Neuromuscular reeducation, Compensatory technique education Subjective Previous Visit Info: OT Last Visit OT Received On: 03/08/23 General: General Prior to Session Communication: Bedside nurse Patient Position Received: Bed, 2 rail up General Comment: cleared for therapy per RN. Pt seated in bed upon arrival, agreeable to tx session Precautions: Medical Precautions: Fall precautions, Abdominal precautions Post-Surgical Precautions: Abdominal surgery precautions Pain: Pain Assessment Pain Assessment: 0-10 Pain Score: 5 - Moderate pain Pain Location: Abdomen Objective Cognition: Cognition Overall Cognitive Status: Within Functional Limits Activities of Daily Living: Grooming Grooming Level of Assistance: Minimum assistance Grooming Comments: min A for hair washing and brushing task with use of shower cap with assist required d/t limited ROM d/t increased pain. S/u for oral hygiene task standing sinkside with close S UE Bathing UE Bathing Level of Assistance: Setup UE Bathing Comments: s/u for UB bathing task seated at EOB UE Dressing UE Dressing Level of Assistance: Minimum assistance UE Dressing Comments: min A to don gown over shoulders LE Dressing LE Dressing: No (pt verbally introduced to AE for LB dressing, will demonstrate tomorrow) Functional Standing Tolerance: Time: 3 min Functional Standing Tolerance Comments: tolerated standing during oral hygiene task standing sinkside Bed Mobility/Transfers: Bed Mobility Bed Mobility: Yes Bed Mobility 1 Bed Mobility 1: Supine to sitting Level of Assistance 1: Minimum assistance Bed Mobility Comments 1: min A supine>sit with use of log roll technique with pt demonstrating good carryover, requiring increased time at EOB d/t dizziness Transfers Transfer: Yes Transfer 1 Transfer From 1: Sit to Transfer to 1: Stand Technique 1: Sit to stand, Stand to sit Transfer Level of Assistance 1: Contact guard Trials/Comments 1: CGA sit<>stand from EOB with VC for proper hand placement Standing Balance: Static Standing Balance Static Standing-Level of Assistance: Close supervision Static Standing-Comment/Number of Minutes: fair+ Therapy/Activity: Therapeutic Activity Therapeutic Activity Performed: Yes Therapeutic Activity 1: participated in functional mobility a short household distance with CGA with increased time required d/t increase pain and fatigue Outcome Measures:[facility] Daily Activity Putting on and taking off regular lower body clothing: Total Bathing (including washing, rinsing, drying): A lot Putting on and taking off regular upper body clothing: A little Toileting, which includes using toilet, bedpan or urinal: A little Taking care of personal grooming such as brushing teeth: A little Eating Meals: None Daily Activity - Total Score: 16 Education Documentation Precautions, taught by FLAQUITO Knight at 03/08/2023 12:46 PM. Learner: Patient Readiness: Acceptance Method: Explanation Response: Verbalizes Understanding, Demonstrated Understanding ADL Training, taught by FLAQUITO Knight at 03/08/2023 12:46 PM. Learner: Patient Readiness: Acceptance Method: Explanation Response: Verbalizes Understanding, Demonstrated Understanding Education Comments No comments found. Problem: OT Goals Goal: Pt will complete all functional transfers and mobility with mod indep/indep using a device orno device. Outcome: Progressing Goal: Pt will complete all ADL's with mod indep/indep using AE as needed for abdominal precautions. Outcome: Progressing Goal: Pt will tolerate functional mobility for a household distance using a device or no device with mod indep. Outcome: Progressing Goal: Pt will verbalize/demonstrate understanding of abdominal precautions during all functional tasks by discharge. Outcome: Progressing * Alicia Toro APRN-APPLICATION SECURITY ARCHITECT - 03/08/2023 11:04 AM EST bAbey Garcia is a 32 y.o. female on day 3 of admission presenting with Median arcuate ligament syndrome (CMS/HCC). Subjective Patient seen and examined. Awake/alert/oriented. Resting in bed. Reports increased pain today that she attributes to moving around more this morning. She did have urinary retention and long was replaced. Denies chest pain, shortness of breath, fevers, or chills. Still having nausea and dry heaves. Objective Last Recorded Vitals BP 141/87 (BP Location: Left arm, Patient Position: Sitting) Pulse 69 Temp 36.9 C (98.4 F) (Oral) Resp 20 Wt 84.3 kg (185 lb 13.6 oz) SpO2 99% Intake/Output last 3 Shifts: Intake/Output Summary (Last 24 hours) at 03/08/2023 1104 Last data filed at 03/08/2023 0547 Gross per 24 hour Intake 1017.5 ml Output 1660 ml Net -642.5 ml Admission Weight Weight: 82.1 kg (181 lb) (03/05/23 0642) Daily Weight 03/08/23 : 84.3 kg (185 lb 13.6 oz) Image Results XR chest 1 view Narrative: Interpreted By: Sara Zarate, STUDY: XR CHEST 1 VIEW; 03/06/2023 7:32 am INDICATION: Signs/Symptoms:post op COMPARISON: None ACCESSION NUMBER(S): [id number] ORDERING CLINICIAN: JASON FOSTER TECHNIQUE: Frontal and lateral chest radiographs. FINDINGS: Enteric tube is seen with the tip overlying the expected location of the stomach. Right upper extremity PICC is seen with the tip overlying the distal SVC. The cardiomediastinal silhouette is unremarkable. The lungs are clear. No pleural effusion is identified. The osseous structures are intact. Impression: Appliance positioning as noted above. No consolidation. Signed by: Sara Zarate 03/06/2023 1:48 PM Dictation workstation: [id number] Physical Exam Constitutional: Appearance: Normal appearance. HENT: Head: Normocephalic and atraumatic. Cardiovascular: Rate and Rhythm: Normal rate and regular rhythm. Pulses: Normal pulses. Heart sounds: Normal heart sounds. Pulmonary: Effort: Pulmonary effort is normal. Breath sounds: Normal breath sounds. Abdominal: General: Bowel sounds are normal. Palpations: Abdomen is soft. Tenderness: There is abdominal tenderness. Skin: General: Skin is warm and dry. Comments: Surgical ABD with incision well approximated, no erythema or drainage Neurological: General: No focal deficit present. Mental Status: She is alert and oriented to person, place, and time. Results Lab Results Component Value Date GLUCOSE 91 03/08/2023 CALCIUM 8.2 (L) 03/08/2023 NA 136 03/08/2023 K 3.7 03/08/2023 CO2 22 (L) 03/08/2023 CL 106 03/08/2023 BUN 3 (L) 03/08/2023 CREATININE 0.70 03/08/2023 Lab Results Component Value Date WBC 4.2 (L) 03/08/2023 HGB 10.9 (L) 03/08/2023 HCT 32.2 (L) 03/08/2023 MCV 93 03/08/2023 PLT 171 03/08/2023 Assessment/Plan Median arcuate ligament syndrome s/p surgery Hypothyroidism, GERD, PUD, IBS Depression, anxiety, asthma Median arcuate ligament syndrome S/p median release via laparotomy by Dr. Magaña Postop management per vascular team Antiemetics as needed, advance diet as tolerated Pain management Incentive spirometer Bowel regimen DVT prophylaxis Urinary retention Long replaced Consult urology, appreciate recs Hypothyroidism Resume home medication GERD/PUD Pepcid IBS Bowel regimen Depression Home medications resumed Plan Pain management/bowel regimen Out of bed as tolerated Antiemetics Incentive spirometer Vascular surgery following, appreciate recs Urology consulted, appreciate recs DVT prophylaxis: Lovenox CBC and BMP in AM JAMA Granger * JAMA Judd - 03/08/2023 10:17 AM EST Abbey Garcia is a 32 y.o. female on day 3 of admission presenting with Median arcuate ligament syndrome (CMS/HCC). Subjective Earlier this morning Endorses a little less left quadrant abdominal spasms Passing flatus Tolerating clear liquid diet Endorses nausea, no vomiting Objective Last Recorded Vitals 03/07/2023 7:55 AM 03/07/2023 12:54 PM 03/07/2023 3:00 PM 03/07/2023 7:37 PM 03/08/2023 12:00 AM 03/08/2023 3:50 AM 03/08/2023 8:12 AM Vitals Systolic 136 140 125 140 136 135 141 Diastolic 81 87 73 77 87 89 87 Heart Rate 71 80 71 89 75 75 69 Temp 37.5 C (99.5 F) 37.4 C (99.3 F) 37 C (98.6 F) 36.6 C (97.9 F) 36.7 C (98.1 F) 36.6 C (97.9 F) 36.9 C (98.4 F) Resp 16 16 16 16 16 18 20 Weight (lb) 185.85 BMI 30.01 kg/m2 BSA (m2) 1.98 m2 Patient no acute distress on bedside exam States she walked the halls Relevant Results Results for orders placed or performed during the hospital encounter of 03/05/23 (from the past 24 hour(s)) POCT GLUCOSE Result Value Ref Range POCT Glucose 98 74 - 99 mg/dL POCT GLUCOSE Result Value Ref Range POCT Glucose 117 (H) 74 - 99 mg/dL POCT GLUCOSE Result Value Ref Range POCT Glucose 125 (H) 74 - 99 mg/dL POCT GLUCOSE Result Value Ref Range POCT Glucose 102 (H) 74 - 99 mg/dL POCT GLUCOSE Result Value Ref Range POCT Glucose 97 74 - 99 mg/dL CBC Result Value Ref Range WBC 4.2 (L) 4.4 - 11.3 x10*3/uL nRBC 0.0 0.0 - 0.0 /100 WBCs RBC 3.48 (L) 4.00 - 5.20 x10*6/uL Hemoglobin 10.9 (L) 12.0 - 16.0 g/dL Hematocrit 32.2 (L) 36.0 - 46.0 % MCV 93 80 - 100 fL MCH 31.3 26.0 - 34.0 pg MCHC 33.9 32.0 - 36.0 g/dL RDW 12.8 11.5 - 14.5 % Platelets 171 150 - 450 x10*3/uL Basic metabolic panel Result Value Ref Range Glucose 91 65 - 99 mg/dL Sodium 136 133 - 145 mmol/L Potassium 3.7 3.4 - 5.1 mmol/L Chloride 106 97 - 107 mmol/L Bicarbonate 22 (L) 24 - 31 mmol/L Urea Nitrogen 3 (L) 8 - 25 mg/dL Creatinine 0.70 0.40 - 1.60 mg/dL eGFR >90 >60 mL/min/1.73m*2 Calcium 8.2 (L) 8.5 - 10.4 mg/dL Anion Gap 8 <=19 mmol/L POCT GLUCOSE Result Value Ref Range POCT Glucose 89 74 - 99 mg/dL Physical Exam General: Pt is alert and oriented x 3. Pleasant, conversive HEENT: Head is atraumatic, normocephalic. No cervical bruits Cardiac: Normal S1-S2. Regular rate and rhythm. No murmurs. Respiratory: Lungs clear to auscultation. No adventitious sounds. Abdomen: Soft, nondistended, nontender. Bowel sounds x4 quadrants. Abdominal incision well-approximated. Surrounding tissue erythema or induration. Minimal drainage on the bandaging Pulse exam: Palpable brachial and radial pulses bilaterally. Extremities are warm and well-perfused. Extremities: No significant edema noted. Extremities are warm to the touch and normal in color. No open wounds or sores. Neuro: Moves all extremities spontaneously. No focal deficits. Psych: Appropriate affect. Answers questions appropriately. Assessment/Plan Median arcuate ligament syndrome Postoperative pain Muscle spasm Post operative nausea Urinary retention Median arcuate ligament syndrome-patient status post release via laparotomy yesterday by Dr. Magaña. She is experiencing some spasm type pain on the left side of abdomen with oral intake. Postoperativepain relatively well-managed with current regimen of IV opioids.. -Advised to continue ambulating her room in the halls -Patient on senna for bowel regimen. -Continue IV Valium, decrease use of IV Dilaudid to every 4 hours. Encouraged oral pain medication -Diet advanced to regular -IV fluids were discontinued, however, patient is not taking in much in the way of oral intake. Will continue maintenance fluid at a lower rate of 75 cc an hour. D5 half-normal saline with 20 of potassium. -Hold off on restarting TPN at this time. We will see how she tolerates a diet in the next day -Continue with IV antinausea medications. Seems to be responding well to Compazine. * JAMA Lynn - 03/07/2023 4:29 PM EST Abbey Garcia is a 32 y.o. female on day 2 of admission presenting with Median arcuate ligament syndrome (CMS/HCC). Subjective Patient seen and examined. She is postoperative day 2 from a median arcuate ligament release via laparotomy by Dr. Magaña patient is having spasm-like pain on the left side of her abdomen when taking in drink. She has had minimal oral intake after discussion with bedside RN. Long was discontinued this morning but the patient has not urinated yet. Objective Physical Exam General: Pt is alert and oriented x 3. Pleasant, conversive HEENT: Head is atraumatic, normocephalic. No cervical bruits Cardiac: Normal S1-S2. Regular rate and rhythm. No murmurs. Respiratory: Lungs clear to auscultation. No adventitious sounds. Abdomen: Soft, nondistended, nontender. Bowel sounds x4 quadrants. Abdominal incision well-approximated. Surrounding tissue erythema or induration. Minimal drainage on the bandaging Pulse exam: Palpable brachial and radial pulses bilaterally. Extremities are warm and well-perfused. Extremities: No significant edema noted. Extremities are warm to the touch and normal in color. No open wounds or sores. Neuro: Moves all extremities spontaneously. No focal deficits. Psych: Appropriate affect. Answers questions appropriately. Last Recorded Vitals Blood pressure 125/73, pulse 71, temperature 37 C (98.6 F), temperature source Temporal, resp. rate16, height 1.676 m (5' 5.98 ), weight 82.2 kg (181 lb 3.5 oz), SpO2 98 %. Intake/Output last 3 Shifts: I/O last 3 completed shifts: In: 3550.8 (43.2 mL/kg) [I.V.:50 (0.6 mL/kg); NG/GT:145; IV Piggyback:3355.8] Out: 2330 (28.3 mL/kg) [Urine:1730 (0.6 mL/kg/hr); Emesis/NG output:600] Weight: 82.2 kg Relevant Results Scheduled medications busPIRone, 10 mg, oral, BID enoxaparin, 40 mg, subcutaneous, Daily escitalopram, 20 mg, oral, Daily famotidine, 20 mg, oral, BID Or famotidine, 20 mg, intravenous, BID ferrous sulfate (325 mg ferrous sulfate), 1 tablet, oral, Daily with breakfast insulin lispro, 0-5 Units, subcutaneous, q4h levothyroxine, 100 mcg, oral, Daily liothyronine, 5 mcg, oral, Daily mirtazapine, 15 mg, oral, Nightly sennosides, 2 tablet, oral, BID topiramate, 50 mg, oral, BID Continuous medications PRN medications PRN medications: acetaminophen OR acetaminophen OR acetaminophen, albuterol, dextrose 10 % in water (D10W), dextrose, diazePAM, glucagon, HYDROmorphone, hydrOXYzine HCL, ondansetron OR ondansetron, oxyCODONE- acetaminophen, polyethylene glycol, prochlorperazine OR prochlorperazine O R prochlorperazine Results for orders placed or performed during the hospital encounter of 03/05/23 (from the past 24 hour(s)) POCT GLUCOSE Result Value Ref Range POCT Glucose 103 (H) 74 - 99 mg/dL POCT GLUCOSE Result Value Ref Range POCT Glucose 119 (H) 74 - 99 mg/dL POCT GLUCOSE Result Value Ref Range POCT Glucose 108 (H) 74 - 99 mg/dL CBC Result Value Ref Range WBC 5.1 4.4 - 11.3 x10*3/uL nRBC 0.0 0.0 - 0.0 /100 WBCs RBC 3.51 (L) 4.00 - 5.20 x10*6/uL Hemoglobin 11.0 (L) 12.0 - 16.0 g/dL Hematocrit 33.3 (L) 36.0 - 46.0 % MCV 95 80 - 100 fL MCH 31.3 26.0 - 34.0 pg MCHC 33.0 32.0 - 36.0 g/dL RDW 13.2 11.5 - 14.5 % Platelets 155 150 - 450 x10*3/uL Basic metabolic panel Result Value Ref Range Glucose 100 (H) 65 - 99 mg/dL Sodium 139 133 - 145 mmol/L Potassium 3.9 3.4 - 5.1 mmol/L Chloride 111 (H) 97 - 107 mmol/L Bicarbonate 21 (L) 24 - 31 mmol/L Urea Nitrogen 4 (L) 8 - 25 mg/dL Creatinine 0.70 0.40 - 1.60 mg/dL eGFR >90 >60 mL/min/1.73m*2 Calcium 8.0 (L) 8.5 - 10.4 mg/dL Anion Gap 7 <=19 mmol/L POCT GLUCOSE Result Value Ref Range POCT Glucose 98 74 - 99 mg/dL POCT GLUCOSE Result Value Ref Range POCT Glucose 98 74 - 99 mg/dL Assessment/Plan Median arcuate ligament syndrome Postoperative pain Muscle spasm Post operative nausea Urinary retention Median arcuate ligament syndrome-patient status post release via laparotomy yesterday by Dr. Magaña. She is experiencing some spasm type pain on the left side of abdomen with oral intake. Postoperativepain relatively well-managed with current regimen of IV opioids.. -Patient needs to be up out of the bed and into the chair at least 4 times per day. Walk in the hallways. I explained this to the patient and she agrees. -Patient on senna for bowel regimen. -Continue IV Valium, Dilaudid -Okay to start a clear liquid diet, advance diet as tolerated -IV fluids were discontinued, however, patient is not taking in much in the way of oral intake. Will continue maintenance fluid at a lower rate of 75 cc an hour. D5 half-normal saline with 20 of potassium. -Hold off on restarting TPN at this time. We will see how she tolerates a diet in the next day or 2. -Continue with IV antinausea medications. Seems to be responding well to Compazine. I spent 35 minutes in the professional and overall care of this patient. JAMA Lynn * JAMA Smith - 03/07/2023 9:29 AM EST Abbey Garcia is a 32 y.o. female on day 2 of admission presenting with Median arcuate ligament syndrome (CMS/HCC). Subjective Patient seen and examined. Complains of mild pain related to her incision site. Complains of mild nausea. Denies chest pain. No acute distress. Objective Last Recorded Vitals BP 136/81 (BP Location: Left arm, Patient Position: Lying) Pulse 71 Temp 37.5 C (99.5 F) (Temporal) Resp 16 Wt 82.2 kg (181 lb 3.5 oz) SpO2 100% Intake/Output last 3 Shifts: Intake/Output Summary (Last 24 hours) at 03/07/2023 0901 Last data filed at 03/07/2023 0570 Gross per 24 hour Intake 1405.83 ml Output 750 ml Net 655.83 ml Admission Weight Weight: 82.1 kg (181 lb) (03/05/23 0642) Daily Weight 03/07/23 : 82.2 kg (181 lb 3.5 oz) Image Results XR chest 1 view Narrative: Interpreted By: Sara Zarate, STUDY: XR CHEST 1 VIEW; 03/06/2023 7:32 am INDICATION: Signs/Symptoms:post op COMPARISON: None ACCESSION NUMBER(S): [id number] ORDERING CLINICIAN: JASON FOSTER TECHNIQUE: Frontal and lateral chest radiographs. FINDINGS: Enteric tube is seen with the tip overlying the expected location of the stomach. Right upper extremity PICC is seen with the tip overlying the distal SVC. The cardiomediastinal silhouette is unremarkable. The lungs are clear. No pleural effusion is identified. The osseous structures are intact. Impression: Appliance positioning as noted above. No consolidation. Signed by: Sara Zarate 03/06/2023 1:48 PM Dictation workstation: [id number] Physical Exam Constitutional: Appearance: Normal appearance. HENT: Head: Normocephalic and atraumatic. Mouth/Throat: Mouth: Mucous membranes are moist. Eyes: Extraocular Movements: Extraocular movements intact. Pupils: Pupils are equal, round, and reactive to light. Cardiovascular: Rate and Rhythm: Normal rate and regular rhythm. Pulses: Normal pulses. Heart sounds: Normal heart sounds. Pulmonary: Effort: Pulmonary effort is normal. Breath sounds: Normal breath sounds. Abdominal: General: Bowel sounds are normal. Palpations: Abdomen is soft. Musculoskeletal: General: Normal range of motion. Cervical back: Normal range of motion. Skin: General: Skin is warm and dry. Capillary Refill: Capillary refill takes less than 2 seconds. Comments: Incision upper abdomen clean dry intact Neurological: Mental Status: She is alert and oriented to person, place, and time. Psychiatric: Mood and Affect: Mood normal. Constitutional: General: She is not in acute distress. HENT: Head: Normocephalic and atraumatic. Eyes: Pupils: Pupils are equal, round, and reactive to light. Cardiovascular: Rate and Rhythm: Normal rate and regular rhythm. Pulmonary: Effort: Pulmonary effort is normal. Breath sounds: Normal breath sounds. Abdominal: Palpations: Abdomen is soft. Tenderness: There is abdominal tenderness. Skin: Capillary Refill: Capillary refill takes less than 2 seconds. Neurological: General: No focal deficit present. Mental Status: She is alert. Assessment/Plan Median arcuate ligament syndrome s/p surgery Hypothyroidism, GERD, PUD, IBS Depression, anxiety, asthma Plan: Median arcuate ligament syndrome POD #2 Postop management per vascular team Antiemetics as needed, advance diet as tolerated DVT proph JAMA Smith * Jory Alvarado, PT - 03/07/2023 1:37 AM EST Physical Therapy Physical Therapy Treatment Patient Name: Abbey Garcia Today's Date: 03/07/2023 Time Calculation Start Time: 1337 Stop Time: 1352 Time Calculation (min): 15 min Assessment/Plan PT Assessment PT Assessment Results: Decreased strength, Decreased mobility, Decreased coordination, Pain Rehab Prognosis: Good Evaluation/Treatment Tolerance: Patient limited by fatigue, Patient limited by pain Medical Staff Made Aware: Yes Strengths: Premorbid level of function, Attitude of self End of Session Communication: Bedside nurse Assessment Comment: patient would benefit from continued skilled therapy services. End of Session Patient Position: Bed, 2 rail up PT Plan Inpatient/Swing Bed or Outpatient: Inpatient PT Plan Treatment/Interventions: Bed mobility, Transfer training, Gait training, Stair training, Balance training, Strengthening, Therapeutic exercise, Therapeutic activity PT Plan: Skilled PT PT Frequency: 6 times per week PT Discharge Recommendations: Low intensity level of continued care Equipment Recommended upon Discharge: Wheeled walker PT Recommended Transfer Status: (MIN/MOD A x 1-2) PT - OK to Discharge: Yes General Visit Information: PT Visit PT Received On: 03/07/23 Response to Previous Treatment: Patient with no complaints from previous session. General Reason for Referral: Median Arcuate ligament syndrome (MALS); s/p release median arcuate ligament by laparotomy 03/05/[address] Magaña; impaired mobility Referred By: JAMA Lynn Past Medical History Relevant to Rehab: MALS, appy, denise, gastric bypass, IBS, dep, anxiety, peptic ulcer disease Family/Caregiver Present: No Prior to Session Communication: Bedside nurse Patient Position Received: Bed, 2 rail up Preferred Learning Style: verbal General Comment: pt willing to perform supine ther ex. Subjective Precautions: Vital Signs: Objective Pain: Pain Assessment Pain Assessment: 0-10 Pain Score: 7 Pain Type: Surgical pain Pain Location: Abdomen Cognition: Cognition Orientation Level: Oriented X4 Postural Control: Extremity/Trunk Assessments: Activity Tolerance: Treatments: Therapeutic Exercise Therapeutic Exercise Performed: Yes Therapeutic Exercise Activity 1: patient reported very increased fatigue levels but agreed to supine ther ex at this time. supine ther ex with AROM including: quad sets, heel slides, hip ABD and ankle pumps x15. therapeutic rest breaks as needed/appropriate for adequate muscle relaxation and to notcause pain or discomfort. VC for technique and form. patient falling asleep during ther ex with tx session ended after completion of exercises due to increased fatigue levels. Outcome Measures: [facility] Basic Mobility Turning from your back to your side while in a flat bed without using bedrails: A lot Moving from lying on your back to sitting on the side of a flat bed without using bedrails: A lot Moving to and from bed to chair (including a wheelchair): A lot Standing up from a chair using your arms (e.g. wheelchair or bedside chair): A lot To walk in hospital room: A lot Climbing 3-5 steps with railing: A lot Basic Mobility - Total Score: 12 Education Documentation Precautions, taught by Jory Alvarado PT at 03/07/2023 1:59 PM. Learner: Patient Readiness: Acceptance Method: Explanation Response: Verbalizes Understanding ADL Training, taught by Jory Alvarado PT at 03/07/2023 1:59 PM. Learner: Patient Readiness: Acceptance Method: Explanation Response: Verbalizes Understanding Precautions, taught by Jory Alvarado PT at 03/07/2023 1:59 PM. Learner: Patient Readiness: Acceptance Method: Explanation Response: Verbalizes Understanding Mobility Training, taught by Jory Alvarado PT at 03/07/2023 1:59 PM. Learner: Patient Readiness: Acceptance Method: Explanation Response: Verbalizes Understanding Education Comments No comments found. OP EDUCATION: Outpatient Education Individual(s) Educated: Patient Education Provided: Post-Op Precautions Risk and Benefits Discussed with Patient/Caregiver/Other: yes Patient/Caregiver Demonstrated Understanding: yes Plan of Care Discussed and Agreed Upon: yes Patient Response to Education: Patient/Caregiver Verbalized Understanding of Information Encounter Problems Encounter Problems (Active) Mobility STG - Patient will ambulate 150' x 1 using rolling walker MOD INDEPENDENT (Progressing) Start: 03/06/23 Expected End: 03/20/23 STG - Patient will negotiate 4 stairs using B railings MOD INDEPENDENT (Progressing) Start: 03/06/23 Expected End: 03/20/23 Pain - Adult Transfers STG - Patient to transfer to and from sit to supine SUPERVISION (Progressing) Start: 03/06/23 Expected End: 03/20/23 STG - Patient will transfer sit to and from stand SUPERVISION (Progressing) Start: 03/06/23 Expected End: 03/20/23 * Karma Sharpe MD - 03/06/2023 5:38 PM EST Abbey Garcia is a 32 y.o. female on day 1 of admission presenting with Median arcuate ligament syndrome (CMS/HCC). Subjective C/o postop pain Objective Last Recorded Vitals BP 111/73 Pulse 65 Temp 37.1 C (98.8 F) (Temporal) Resp 13 Wt 83.8 kg (184 lb 11.9 oz) SpO2 99% Intake/Output last 3 Shifts: Intake/Output Summary (Last 24 hours) at 03/06/2023 1738 Last data filed at 03/06/2023 1400 Gross per 24 hour Intake 2820 ml Output 1855 ml Net 965 ml Admission Weight Weight: 82.1 kg (181 lb) (03/05/23 0642) Daily Weight 03/06/23 : 83.8 kg (184 lb 11.9 oz) Image Results XR chest 1 view Narrative: Interpreted By: Sara Zarate, STUDY: XR CHEST 1 VIEW; 03/06/2023 7:32 am INDICATION: Signs/Symptoms:post op COMPARISON: None ACCESSION NUMBER(S): [id number] ORDERING CLINICIAN: JASON FOSTER TECHNIQUE: Frontal and lateral chest radiographs. FINDINGS: Enteric tube is seen with the tip overlying the expected location of the stomach. Right upper extremity PICC is seen with the tip overlying the distal SVC. The cardiomediastinal silhouette is unremarkable. The lungs are clear. No pleural effusion is identified. The osseous structures are intact. Impression: Appliance positioning as noted above. No consolidation. Signed by: Sara Zarate 03/06/2023 1:48 PM Dictation workstation: [id number] Physical Exam Constitutional: General: She is not in acute distress. HENT: Head: Normocephalic and atraumatic. Eyes: Pupils: Pupils are equal, round, and reactive to light. Cardiovascular: Rate and Rhythm: Normal rate and regular rhythm. Pulmonary: Effort: Pulmonary effort is normal. Breath sounds: Normal breath sounds. Abdominal: Palpations: Abdomen is soft. Tenderness: There is abdominal tenderness. Skin: Capillary Refill: Capillary refill takes less than 2 seconds. Neurological: General: No focal deficit present. Mental Status: She is alert. Assessment/Plan Median arcuate ligament syndrome s/p surgery Hypothyroidism, GERD, PUD, IBS Depression, anxiety, asthma Plan: Postop management per vascular team Antiemetics as needed, advance diet as tolerated DVT proph Karma Sharpe MD * Jason Foster, BRANCH SERVICE ASSOCIATE-APPLICATION SECURITY ARCHITECT - 03/06/2023 1:57 PM EST Abbey Garcia is a 32 y.o. female on day 1 of admission presenting with Median arcuate ligament syndrome (CMS/HCC). Subjective Patient seen and examined. She is postoperative day 1 from a median arcuate ligament release via laparotomy by Dr. Magaña patient is having moderate abdominal pain that is postoperative in nature. She has had minimal output from her NG tube. She was up in a chair earlier today. Objective Physical Exam General: Pt is alert and oriented x 3. Pleasant, conversive HEENT: Head is atraumatic, normocephalic. No cervical bruits Cardiac: Normal S1-S2. Regular rate and rhythm. No murmurs. Respiratory: Lungs clear to auscultation. No adventitious sounds. Abdomen: Soft, nondistended, nontender. Bowel sounds x4 quadrants. Abdominal incision well-approximated. Surrounding tissue erythema or induration. Minimal drainage on the bandaging Pulse exam: Palpable brachial and radial pulses bilaterally. Extremities are warm and well-perfused. Extremities: No significant edema noted. Extremities are warm to the touch and normal in color. No open wounds or sores. Neuro: Moves all extremities spontaneously. No focal deficits. Psych: Appropriate affect. Answers questions appropriately. Last Recorded Vitals Blood pressure 128/73, pulse 70, temperature 37.1 C (98.8 F), temperature source Temporal, resp. rate 15, height 1.676 m (5' 5.98 ), weight 83.8 kg (184 lb 11.9 oz), SpO2 97 %. Intake/Output last 3 Shifts: I/O last 3 completed shifts: In: 1497.1 (17.9 mL/kg) [I.V.:1300 (15.5 mL/kg); NG/GT:145; IV Piggyback:52.1] Out: 2325 (27.7 mL/kg) [Urine:1705 (0.6 mL/kg/hr); Emesis/NG output:600; Blood:20] Weight: 83.8 kg Relevant Results Scheduled medications busPIRone, 10 mg, oral, BID enoxaparin, 40 mg, subcutaneous, Daily escitalopram, 20 mg, oral, Daily famotidine, 20 mg, oral, BID Or famotidine, 20 mg, intravenous, BID ferrous sulfate (325 mg ferrous sulfate), 1 tablet, oral, Daily with breakfast insulin lispro, 0-5 Units, subcutaneous, q4h levothyroxine, 100 mcg, oral, Daily liothyronine, 5 mcg, oral, Daily mirtazapine, 15 mg, oral, Nightly sennosides, 2 tablet, oral, BID topiramate, 50 mg, oral, BID Continuous medications potassium [id number]-A8-0.9%NaCl, 125 mL/hr, Last Rate: 125 mL/hr (03/06/23 1009) PRN medications PRN medications: acetaminophen OR acetaminophen OR acetaminophen, albuterol, dextrose 10 % in water (D10W), dextrose, diazePAM, glucagon, HYDROmorphone, hydrOXYzine HCL, ondansetron OR ondansetron, oxyCODONE- acetaminophen, polyethylene glycol, prochlorperazine OR prochlorperazine O R prochlorperazine Results for orders placed or performed during the hospital encounter of 03/05/23 (from the past 24 hour(s)) Magnesium Result Value Ref Range Magnesium 1.70 1.60 - 3.10 mg/dL Phosphorus Result Value Ref Range Phosphorus 4.3 2.5 - 4.5 mg/dL CBC Result Value Ref Range WBC 8.4 4.4 - 11.3 x10*3/uL nRBC 0.0 0.0 - 0.0 /100 WBCs RBC 3.82 (L) 4.00 - 5.20 x10*6/uL Hemoglobin 11.9 (L) 12.0 - 16.0 g/dL Hematocrit 34.8 (L) 36.0 - 46.0 % MCV 91 80 - 100 fL MCH 31.2 26.0 - 34.0 pg MCHC 34.2 32.0 - 36.0 g/dL RDW 12.6 11.5 - 14.5 % Platelets 182 150 - 450 x10*3/uL Basic metabolic panel Result Value Ref Range Glucose 107 (H) 65 - 99 mg/dL Sodium 138 133 - 145 mmol/L Potassium 3.6 3.4 - 5.1 mmol/L Chloride 107 97 - 107 mmol/L Bicarbonate 18 (L) 24 - 31 mmol/L Urea Nitrogen 10 8 - 25 mg/dL Creatinine 0.70 0.40 - 1.60 mg/dL eGFR >90 >60 mL/min/1.73m*2 Calcium 8.0 (L) 8.5 - 10.4 mg/dL Anion Gap 13 <=19 mmol/L POCT GLUCOSE Result Value Ref Range POCT Glucose 111 (H) 74 - 99 mg/dL POCT GLUCOSE Result Value Ref Range POCT Glucose 177 (H) 74 - 99 mg/dL POCT GLUCOSE Result Value Ref Range POCT Glucose 176 (H) 74 - 99 mg/dL POCT GLUCOSE Result Value Ref Range POCT Glucose 152 (H) 74 - 99 mg/dL CBC Result Value Ref Range WBC 5.5 4.4 - 11.3 x10*3/uL nRBC 0.0 0.0 - 0.0 /100 WBCs RBC 3.83 (L) 4.00 - 5.20 x10*6/uL Hemoglobin 11.8 (L) 12.0 - 16.0 g/dL Hematocrit 35.1 (L) 36.0 - 46.0 % MCV 92 80 - 100 fL MCH 30.8 26.0 - 34.0 pg MCHC 33.6 32.0 - 36.0 g/dL RDW 12.9 11.5 - 14.5 % Platelets 179 150 - 450 x10*3/uL Basic metabolic panel Result Value Ref Range Glucose 149 (H) 65 - 99 mg/dL Sodium 137 133 - 145 mmol/L Potassium 3.7 3.4 - 5.1 mmol/L Chloride 109 (H) 97 - 107 mmol/L Bicarbonate 21 (L) 24 - 31 mmol/L Urea Nitrogen 5 (L) 8 - 25 mg/dL Creatinine 0.70 0.40 - 1.60 mg/dL eGFR >90 >60 mL/min/1.73m*2 Calcium 8.1 (L) 8.5 - 10.4 mg/dL Anion Gap 7 <=19 mmol/L Magnesium Result Value Ref Range Magnesium 1.70 1.60 - 3.10 mg/dL Phosphorus Result Value Ref Range Phosphorus 3.0 2.5 - 4.5 mg/dL POCT GLUCOSE Result Value Ref Range POCT Glucose 113 (H) 74 - 99 mg/dL POCT GLUCOSE Result Value Ref Range POCT Glucose 108 (H) 74 - 99 mg/dL Assessment/Plan Median arcuate ligament syndrome Postoperative pain Muscle spasm Post operative nausea Median arcuate ligament syndrome-patient status post release via laparotomy yesterday by Dr. Magaña. She is experiencing some postoperative pain, which is to be expected. Relatively well-managed with current regimen of IV opioids. Also complaining of some spasm type pain, which is also to be expected postoperatively. For this, we are managing with IV Valium. -Okay to start a clear liquid diet -Remove NG tube as patient has had less than 200 cc out -Decrease IV fluids to 100 mL/h oral intake begins to increase. -Hold off on restarting TPN at this time. We will see how she tolerates a diet in the next day or 2. -Continue with IV antinausea medications. Seems to be responding well to Compazine. -Appreciate ICU team management. I spent 35 minutes in the professional and overall care of this patient. JAMA Lynn * Juanito Hernandez Jr., OT - 03/06/2023 10:28 AM EST Occupational Therapy Evaluation/Treatment Patient Name: Abbey Garcia : 1990 Today's Date: 03/06/23 Time Calculation Start Time: 0755 Stop Time: 0830 Time Calculation (min): 35 min Assessment: OT Assessment: Pt presents on eval with generalized weakness after surgery, new abdominal precautions, increased abdominal pain, decreased activity tolerance, and impaired standing balance affecting her self-care and functional transfers/mobility. Pt will benefit from continued skilled OT to address these deficits. Prognosis: Excellent Evaluation/Treatment Tolerance: Patient limited by pain End of Session Communication: Bedside nurse End of Session Patient Position: Up in chair (Needs in reach and spouse at bedside.) OT Assessment Results: Decreased ADL status, Decreased endurance, Decreased functional mobility, Decreased IADLs, Decreased trunk control for functional activities Strengths: Premorbid level of function, Physical health, Attitude of self Plan: Treatment Interventions: ADL retraining, Functional transfer training, Endurance training, Patient/family training, Equipment evaluation/education, Neuromuscular reeducation, Compensatory technique education OT Frequency: 5 times per week OT Discharge Recommendations: Moderate intensity level of continued care, Other (Comment) (Recommend increased assist from family at home initially, which pt reports is available.) OT - OK to Discharge: Yes Subjective General: OT Received On: 03/06/23 General Reason for Referral: Median Arcuate ligament syndrome (MALS); s/p release median arcuate ligament by Laparotomy on 03/05, impaired ADL's Referred By: Jason Foster, BRANCH SERVICE ASSOCIATE-APPLICATION SECURITY ARCHITECT Past Medical History Relevant to Rehab: MALS, appy, denise, gastric bypass, IBS, dep, anxiety, peptic ulcer disease Family/Caregiver Present: Yes Caregiver Feedback: Spouse at bedside and provided good info. Prior to Session Communication: Bedside nurse Patient Position Received: Bed, 3 rail up General Comment: Pt is a 32 yo female admitted to the hospital with chronic epigastic pain with anyoral intake due to Median Arcuate Ligament Syndrome and is now s/p abdominal surgery post op day 1. Precautions: Medical Precautions: Fall precautions Post-Surgical Precautions: Abdominal surgery precautions Precautions Comment: NG tube in place upon eval, but may be coming out soon. Vital Signs: Heart Rate: 71 Heart Rate Source: Monitor SpO2: 100 % (room air) Pain: Pain Assessment Pain Assessment: 0-10 Pain Score: 8 Pain Type: Surgical pain, Acute pain Pain Location: Abdomen Pain Interventions: Ambulation/increased activity, Other (Comment) (Also notified the nurse.) Objective Cognition: Overall Cognitive Status: Within Functional Limits Orientation Level: Oriented X4 Home Living: Type of Home: House Lives With: Spouse, Dependent children (3 young children) Home Adaptive Equipment: Walker rolling or standard, Crutches Home Layout: One level Home Access: Stairs to enter with rails Entrance Stairs-Rails: Both Entrance Stairs-Number of Steps: 4 Bathroom Shower/Tub: Tub/shower unit Bathroom Toilet: Standard Bathroom Equipment: None Home Living Comments: pt can stay on main floor; also has a recliner for comfort Prior Function: Level of Hale: Independent with ADLs and functional transfers, Independent with homemaking with ambulation ADL Assistance: Independent Homemaking Assistance: Independent Ambulatory Assistance: Independent 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[employer]) Hand Dominance: Right Prior Function Comments: pt was active and driving in community; 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[employer] ADL: Eating Assistance: Independent Grooming Assistance: Moderate Grooming Deficit: (in standing due to guarded posture from increased pain) Bathing Assistance: Moderate UE Dressing Assistance: Minimal LE Dressing Assistance: Total LE Dressing Deficit: (due to increased pain and abdominal precautions) Toileting Assistance with Device: Not performed Toileting Deficit: Urinary Catheter Activity Tolerance: Activity Tolerance Comments: impaired due to recent surgery with increased abdominal pain Bed Mobility/Transfers: Bed Mobility Bed Mobility: (Pt completed supine to sit in bed with mod A x1-2 required for log rolling and trunkup due to increased abdominal pain with guarded posture.) Transfers Transfer: (Pt completed sit<>stand from the bed and chair with min A x2 for safety via arm inarm assist due to increased abdominal pain and impaired balance.) Sitting Balance: Static Sitting Balance Static Sitting-Balance Support: Bilateral upper extremity supported Static Sitting-Level of Assistance: Close supervision Static Sitting-Comment/Number of Minutes: 5 Standing Balance: Static Standing Balance Static Standing-Balance Support: Bilateral upper extremity supported Static Standing-Level of Assistance: Minimum assistance (x2) Static Standing-Comment/Number of Minutes: 1 Therapy/Activity: Therapeutic Activity Therapeutic Activity Performed: (See bed mobility, transfers, and static sitting balance. Educated both pt and spouse on abdominal precautions.) Sensation: Sensation Comment: BUE's WFL Strength: Strength Comments: BULesia's WFL Coordination: Coordination Comment: TOI's WFL Hand Function: Hand Function Gross Grasp: Functional Coordination: Functional Outcome Measures: [facility] Daily Activity Putting on and taking off regular lower body clothing: Total Bathing (including washing, rinsing, drying): A lot Putting on and taking off regular upper body clothing: A little Toileting, which includes using toilet, bedpan or urinal: Total Taking care of personal grooming such as brushing teeth: A lot Eating Meals: None Daily Activity - Total Score: 13 Education Documentation Precautions, taught by Juanito Hernandez Jr., OT at 03/06/2023 10:25 AM. Learner: Patient Readiness: Acceptance Method: Explanation, Demonstration Response: Verbalizes Understanding ADL Training, taught by Juanito Hernandez Jr., OT at 03/06/2023 10:25 AM. Learner: Patient Readiness: Acceptance Method: Explanation, Demonstration Response: Verbalizes Understanding Education Comments No comments found. Goals: Problem: OT Goals Goal: Pt will complete all functional transfers and mobility with mod indep/indep using a device orno device. Outcome: Progressing Goal: Pt will complete all ADL's with mod indep/indep using AE as needed for abdominal precautions. Outcome: Progressing Goal: Pt will tolerate functional mobility for a household distance using a device or no device with mod indep. Outcome: Progressing Goal: Pt will verbalize/demonstrate understanding of abdominal precautions during all functional tasks by discharge. Outcome: Progressing * Raudel Diana PT - 03/06/2023 8:00 AM EST Physical Therapy Physical Therapy Evaluation & Treatment Patient Name: Abbey Garcia Today's Date: 03/06/2023 Time Calculation Start Time: 0800 Stop Time: 0832 Time Calculation (min): 32 min Assessment/Plan PT Assessment PT Assessment Results: Decreased strength, Decreased mobility, Decreased coordination, Pain Rehab Prognosis: Good Evaluation/Treatment Tolerance: Patient limited by pain Medical Staff Made Aware: Yes End of Session Communication: Bedside nurse Assessment Comment: pt would benefit from skilled therapy services and family assistance End of Session Patient Position: Up in chair (call button in reach) IP OR SWING BED PT PLAN Inpatient or Swing Bed: Inpatient PT Plan Treatment/Interventions: Bed mobility, Transfer training, Gait training, Stair training, Strengthening, Therapeutic exercise PT Plan: Skilled PT PT Frequency: 6 times per week PT Discharge Recommendations: Low intensity level of continued care (with family assistance) Equipment Recommended upon Discharge: Wheeled walker PT Recommended Transfer Status: (MIN/MOD A x 1-2) PT - OK to Discharge: Yes Subjective General Visit Information: General Reason for Referral: Median Arcuate ligament syndrome (MALS); s/p release median arcuate ligament by laparotomy 03/05/[address] Magaña; impaired mobility Past Medical History Relevant to Rehab: MALS, appy, denise, gastric bypass, IBS, dep, anxiety, peptic ulcer disease Family/Caregiver Present: Yes (spouse present and provided patient history) Co-Treatment: OT Patient Position Received: Bed, 3 rail up General Comment: pt soft spoken and willing to get OOB Home Living: Home Living Type of Home: House Lives With: spouse and 3 children Home Adaptive Equipment: (crutches and RW) Home Layout: One level Home Access: 4 entry stairs with B railings Bathroom Shower/Tub: Tub/shower unit Home Living Comments: pt can stay on main floor; also has a recliner for comfort Prior Level of Function: Prior Function Per Pt/Caregiver Report Level of Hale: Independent with ADLs and functional transfers, Independent with homemaking with ambulation Receives Help From: (spouse and mother) ADL Assistance: Independent Ambulatory Assistance: Independent Prior Function Comments: pt was active and driving in community; 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[employer] Precautions: Precautions Hearing/Visual Limitations: wears glasses Post-Surgical Precautions: Abdominal surgery precautions Precautions Comment: educated and instructed pt in abdominal precautions Vital Signs: Vital Signs Heart Rate: 84 Resp: 26 SpO2: (100% on room air) Objective Pain: Pain Assessment Pain Assessment: (09/24 abdomen; RN to medicate) Cognition: Cognition Overall Cognitive Status: Within Functional Limits Orientation Level: Oriented X4 General Assessments: General Observation General Observation: vertical abdominal incision intact Activity Tolerance Endurance: (GOOD activity tolerance) Sensation Sensation Comment: intact Coordination Coordination Comment: short guarded steps Postural Control Posture Comment: mild flexed trunk Static Sitting Balance Static Sitting-Balance Support: (WNL) Dynamic Sitting Balance Dynamic Sitting-Balance Support: (GOOD+) Static Standing Balance Static Standing-Balance Support: (GOOD-) Dynamic Standing Balance Dynamic Standing-Balance Support: (GOOD-) Functional Assessments: Bed Mobility: instructed pt in log rolling technique; supine to sit with MOD A x 1-2 for trunk up, scooting and B LE; pt limited by moderate abdominal pain. rest break given on EOB Transfer: sit <-> stand with MIN A x 2/handheld A x 2; slow guarded movement noted. Ambulation/Gait Training Performed: pt took 5-6 short steps to chair with MIN A x 2/Handheld A x 2 Extremity/Trunk Assessments: RUE RUE : Within Functional Limits LUE LUE: Within Functional Limits RLE RLE : (WFL with grossly 4/5 strength; mild swelling noted) LLE LLE : (WFL with grossly 4/5 strength; mild swelling noted) Outcome Measures: [facility] Basic Mobility Turning from your back to your side while in a flat bed without using bedrails: A lot Moving from lying on your back to sitting on the side of a flat bed without using bedrails: A lot Moving to and from bed to chair (including a wheelchair): A lot Standing up from a chair using your arms (e.g. wheelchair or bedside chair): A lot To walk in hospital room: A little Climbing 3-5 steps with railing: A lot Basic Mobility - Total Score: 13 Encounter Problems Encounter Problems (Active) Mobility STG - Patient will ambulate 150' x 1 using rolling walker MOD INDEPENDENT (Progressing) Start: 03/06/23 Expected End: 03/20/23 STG - Patient will negotiate 4 stairs using B railings MOD INDEPENDENT (Progressing) Start: 03/06/23 Expected End: 03/20/23 Pain - Adult Transfers STG - Patient to transfer to and from sit to supine SUPERVISION (Progressing) Start: 03/06/23 Expected End: 03/20/23 STG - Patient will transfer sit to and from stand SUPERVISION (Progressing) Start: 03/06/23 Expected End: 03/20/23 Education Documentation Precautions, taught by Raudel Diana, PT at 03/06/2023 10:02 AM. Learner: Patient Readiness: Eager Method: Explanation Response: Verbalizes Understanding Mobility Training, taught by Raudel Diana PT at 03/06/2023 10:02 AM. Learner: Patient Readiness: Eager Method: Explanation Response: Verbalizes Understanding * Chrissy Harris PA-C - 03/06/2023 7:28 AM EST [facility] Critical Care Medicine Date: 03/06/2023 Patient: Abbey Garcia Date of : 1990 Admit Date: 03/05/2023 No chief complaint on file. History of Present Illness: Abbey Garcia is a 32 y.o. year old female patient with Past Medical History of asthma, hypothyroid, PUD, GERD, hypoglycemia, IBS, PCOS, depression, anxiety, headaches, s/p tan-en-y gastric bypass (2020), hysterectomy, appendectomy, cholecystectomy, ex lap, has been getting work-up by [facility] and Dr. Magaña for severe epigastric abdominal pain since 2019. She has been on TPN since 12/07 due to abdominal pain, nausea, and vomiting with PO intake. This morning, she was taken to the OR by Dr. Magaña for release of the median arcuate ligament via open laparotomy for suspected median arcuate ligament syndrome. Interval ICU Events: 03/05: Pt arrived to the ICU from PACU. She is extubated, on 2L NC, and alert and oriented with family at bedside. She reports abdominal pain around the incision site. She is also nauseous, vomiting, and SOB. Vascular team contacted for orders. NG to low intermittent suction. PICC line in place for TPN. Long and yoli post-op - likely remove tomorrow or when vascular surgery gives orders to remove. 03/06: Patient states she is having 7/10 pain along the abdominal surgical incision. She states thatthe nausea is improved. NG to low intermittent suction. PICC line in place for TPN. Will remove a line and long today. Started on clear diet. Prn haldol added for nausea. Waiting to hear from vascular on how long they want patient in ICU. Medical History: Past Medical History: Diagnosis Date Anxiety Arthritis Asthma CPAP (continuous positive airway pressure) dependence Depression Dizziness GERD (gastroesophageal reflux disease) Hypothyroidism Irritable bowel syndrome with constipation Median arcuate ligament syndrome (CMS/HCC) PCOS (polycystic ovarian syndrome) PONV (postoperative nausea and vomiting) PUD (peptic ulcer disease) Shortness of breath Past Surgical History: Procedure Laterality Date APPENDECTOMY SECTION, CLASSIC x3 CHOLECYSTECTOMY CT ABDOMEN PELVIS ANGIOGRAM W AND/OR WO IV CONTRAST 12/14/2022 CT ABDOMEN PELVIS ANGIOGRAM W AND/OR WO IV CONTRAST 12/14/2022 ERCP W/ SPHINCTEROTOMY AND BALLOON DILATION GASTRIC BYPASS 01/2022 Medications Prior to Admission Medication Sig Dispense Refill Last Dose acetaminophen (Tylenol) 500 mg tablet Take 2 tablets (1,000 mg) by mouth every 6 hours if needed for moderate pain (4 - 6). Past Week albuterol 90 mcg/actuation inhaler Inhale 2 puffs every 4 hours if needed for wheezing or shortnessof breath. Past Week busPIRone (Buspar) 10 mg tablet Take 1 tablet (10 mg) by mouth 2 times a day. 03/05/2023 at 0430 [] chlorhexidine (Peridex) 0.12 % solution Use as directed. Do not start before March 04, 2023. 473 mL 0 03/05/2023 at 0430 Custom TPN Infuse 1,440 mL into a venous catheter continuously. START AT 5 PM UNTIL 5 AM Past Week Effer-K 25 mEq effervescent tablet Take 1 tablet (25 mEq) by mouth once daily. Past Week escitalopram (Lexapro) 20 mg tablet Take 1 tablet (20 mg) by mouth once daily. 03/05/2023 at 0430 famotidine (Pepcid) 40 mg tablet Take 1 tablet (40 mg) by mouth once daily. 03/04/2023 ferrous sulfate 325 (65 Fe) MG tablet Take 1 tablet by mouth once daily with breakfast. 03/04/2023 fluticasone propion-salmeteroL (Advair Diskus) 100-50 mcg/dose diskus inhaler Inhale 1 puff every 12 hours. Past Week hydrOXYzine HCL (Atarax) 25 mg tablet Take 1 tablet (25 mg) by mouth once daily as needed for anxiety. 03/04/2023 at 2000 levothyroxine (Synthroid, Levoxyl) 100 mcg tablet Take 1 tablet (100 mcg) by mouth once daily. 03/05/2023 at 0430 liothyronine (Cytomel) 5 mcg tablet Take 1 tablet (5 mcg) by mouth once daily. 03/05/2023 at 0430 magnesium, as gluconate, (Magonate) 27 mg magnesium (500 mg) tablet Take 500 mg by mouth once daily. Past Week mirtazapine (Remeron) 15 mg tablet Take 1 tablet (15 mg) by mouth once daily at bedtime. 03/04/2023 at 2130 polyethylene glycol (Glycolax, Miralax) 17 gram/dose powder Take 17 g by mouth once daily as needed. Past Week topiramate (Topamax) 100 mg tablet Take 0.5 tablets (50 mg) by mouth 2 times a day. HEADACHES 03/05/2023 at 0430 blood sugar diagnostic strip One touch Verio strips for One Touch Verio meter; test 4 times a day Past Week docusate sodium (Colace) 100 mg capsule Take 1 capsule (100 mg) by mouth 3 times a day as needed. Past Week estradiol (Estrace) 1 mg tablet Take 1 tablet (1 mg) by mouth once daily. Unknown linaCLOtide (Linzess) 145 mcg capsule Take 1 capsule (145 mcg) by mouth once daily in the morning. Take before meals. 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 03/05/2023 Codeine and Nsaids (non-steroidal anti-inflammatory drug) Social History Tobacco Use Smoking status: Never Smokeless tobacco: Never Substance Use Topics Alcohol use: Not Currently Drug use: Never Family History Problem Relation Name Age of Onset Diabetes Mother Jessica Phipps Hypertension Mother Jessica Artino Cancer Maternal Grandfather Cedrick Kraus COPD Maternal Grandfather Cedrick Kraus Heart disease Maternal Grandfather Cedrick Kraus Kidney disease Maternal Grandfather Cedrick Kraus Hypertension Maternal Grandmother Grandpa Anesthesia problems Paternal Grandfather Elan Artino Arthritis Paternal Grandfather Elan Artino Hypertension Paternal Grandfather Elan Artino Anesthesia related problems Paternal Grandfather Elan Artino COPD Paternal Grandmother Grandmother Diabetes Paternal Grandmother Grandmother Asthma Brother [facility] Medications: potassium rvxbyiwo-W0-2.9%NaCl, 125 mL/hr, Last Rate: 125 mL/hr (03/06/23 0700) Current Facility-Administered Medications: acetaminophen (Tylenol) tablet 650 mg, 650 mg, oral, q4h PRN OR acetaminophen (Tylenol) oral liquid 650 mg, 650 mg, oral, q4h PRN OR acetaminophen (Tylenol) suppository 650 mg, 650 mg, rectal, q4h PRN, JAMA Lynn albuterol 2.5 mg /3 mL (0.083 %) nebulizer solution 3 mL, 3 mL, nebulization, q4h PRN, Desmond Tirado PA-C busPIRone (Buspar) tablet 10 mg, 10 mg, oral, BID, Desmond Tirado PA-C, 10 mg at 03/05/23 2142 dextrose 10 % in water (D10W) infusion, 0.3 g/kg/hr, intravenous, Once PRN, Desmond Tirado PA-C dextrose 5 % and sodium chloride 0.9 % with KCl 20 mEq/L infusion, 125 mL/hr, intravenous, Continuous, JAMA Lynn, Last Rate: 125 mL/hr at 03/06/23 0700, 125 mL/hr at 03/06/23 0700 dextrose 50 % injection 25 g, 25 g, intravenous, q15 min PRN, Desmond Tirado PA-C diazePAM (Valium) injection 5 mg, 5 mg, intravenous, q6h PRN, JAMA Lynn, 5 mg at 03/06/23 0432 escitalopram (Lexapro) tablet 20 mg, 20 mg, oral, Daily, Desmond Tirado PA-C famotidine (Pepcid) tablet 20 mg, 20 mg, oral, BID OR famotidine PF (Pepcid) injection 20 mg, 20 mg, intravenous, BID, Baldomero Richards, [facility], 20 mg at 03/05/23 2143 ferrous sulfate (325 mg ferrous sulfate) tablet 1 tablet, 1 tablet, oral, Daily with breakfast, Desmond Tirado PA-C glucagon (Glucagen) injection 1 mg, 1 mg, intramuscular, q15 min PRN, Desmond Tirado PA-C HYDROmorphone (Dilaudid) injection 0.5 mg, 0.5 mg, intravenous, q2h PRN, JAMA Lynn, 0.5 mg at 03/06/23 0650 hydrOXYzine HCL (Atarax) tablet 25 mg, 25 mg, oral, Daily PRN, Desmond Tirado PA-C insulin lispro (HumaLOG) injection 0-5 Units, 0-5 Units, subcutaneous, q4h, Desmond Tirado PA-C, 1 Units at 03/06/23 0433 levothyroxine (Synthroid, Levoxyl) tablet 100 mcg, 100 mcg, oral, Daily, Desmond Tirado PA-C, 100mcg at 03/06/23 0602 liothyronine (Cytomel) tablet 5 mcg, 5 mcg, oral, Daily, Desmond Tirado PA-C mirtazapine (Remeron) tablet 15 mg, 15 mg, oral, Nightly, Desmond Tirado PA-C, 15 mg at 03/05/23 2142 ondansetron (Zofran) tablet 4 mg, 4 mg, oral, q8h PRN OR ondansetron (Zofran) injection 4 mg, 4mg, intravenous, q8h PRN, JAMA Lynn, 4 mg at 03/06/23 0603 oxyCODONE-acetaminophen (Percocet) 5-325 mg per tablet 1 tablet, 1 tablet, oral, q4h PRN, JAMA Bob polyethylene glycol (Glycolax, Miralax) packet 17 g, 17 g, oral, Daily PRN, Desmond Tirado PA-C sennosides (Senokot) tablet 17.2 mg, 2 tablet, oral, BID, JAMA Lynn, 17.2 mg at 03/05/232141 topiramate (Topamax) tablet 50 mg, 50 mg, oral, BID, Desmond Tirado PA-C, 50 mg at 03/05/232141 Review of Systems: 14 point review of systems was completed and negative except for those specially mention in my HPI Physical Exam: Heart Rate: [59-106] Temp: [36.5 C (97.7 F)-37.4 C (99.3 F)] Resp: [8-28] BP: (128-140)/(60-82) Weight: [83.8 kg (184 lb 11.9 oz)-85.5 kg (188 lb 7.9 oz)] SpO2: [97 %-100 %] Physical Exam Constitutional: General: She is not in acute distress. HENT: Head: Normocephalic and atraumatic. Eyes: Pupils: Pupils are equal, round, and reactive to light. Cardiovascular: Rate and Rhythm: Normal rate and regular rhythm. Pulmonary: Effort: Pulmonary effort is normal. Breath sounds: Normal breath sounds. Abdominal: Palpations: Abdomen is soft. Tenderness: There is abdominal tenderness. Skin: Capillary Refill: Capillary refill takes less than 2 seconds. Neurological: General: No focal deficit present. Mental Status: She is alert. Objective: I have reviewed all medications, laboratory results, and imaging pertinent for today's encounter. Intake/Output Summary (Last 24 hours) at 03/06/2023727 Last data filed at 03/06/2023 0700 Gross per 24 hour Intake 3172.08 ml Output 2275 ml Net 897.08 ml Assessment/Plan: I am currently managing this critically ill patient for the following problems: Neuro/Psych/Pain Ctrl/Sedation: Post-op pain Anxiety Depression Headaches - Tylenol PRN for mild pain - Dilaudid, percocet for moderate to severe pain - Valium PRN for muscle spasms - Continue home lexapro, remeron, topamax, buspar - Continue home atarax PRN for anxiety - CAM ICU qshift - Sleep/wake hygiene Respiratory/ENT: Shortness of breath - Continue O2 via NC, wean as tolerated - Maintain SPO2 >92% - Continue home albuterol PRN - Continuous pulse ox monitoring Cardiovascular: No active concerns - Continuous cardiac monitoring per ICU protocol - Maintain MAPS >65 - EKGs PRN for ACS symptoms GI: Post-op nausea and vomiting GERD PUD IBS - Start on clear liquids and will advance as tolerated - NG to low-intermittent suction - Continue home pepcid - BR with miralax - Zofran and haldol prn for nausea Renal/Volume Status (Intra & Extravascular): No active concerns - Maintain urine output 0.5-1.0cc/kg/hr - Continuous IVF ordered by vascular team - Monitor I/O's - Replete electrolytes to maintain K >4.0 and Mg >2.0 - Daily BMP, Mg Endocrine Hypothyroidism Hypoglycemia - SSI q4hrs while NPO - Continue home synthroid, liothyronine - Monitor for hyper/hypoglycemia Infectious Disease: No active concerns - Ancef pre-op - Monitor SIRS criteria Heme/Onc: No active concerns - Continue home ferrous sulfate - Monitor for s/sx of anemia such as bleeding and bruising - Consider adding DVT proph tomorrow - Transfuse if Hgb <7.0 - Daily CBC OBGYN - S/p hysterectomy MSK: No active concerns - Strict bed rest 6hrs post-op - Padded pressure points - Ambulatory at baseline - PT/OT tomorrow Skin - ICU skin protocol Ethics/Code Status: Full code Internet Marketing Analyst: DVT Prophylaxis: Lovenox GI Prophylaxis: pepcid Bowel Regimen: miralax Diet: Clear liquids CVC: none Quitman: yes - left radial Long: yes Restraints: no Dispo: ICU Critical Care Time: 40 minutes Chrissy Harris PA-C [facility] [place] Work Phone: 1(128) 200-990201-24-2024 Nurse Note* Edilia Darby RN - 03/10/2023 11:57 AM EST Patient with Rt arm dual lumen picc, dressing D&I, red lumen in use without difficulty, purple lumen flushes easily and with positive blood return, curos cap applied. [facility] Nurse Note* Edilia Darby RN - 03/10/2023 11:57 AM EST Patient with Rt arm dual lumen picc, dressing D&I, red lumen in use without difficulty, purple lumen flushes easily and with positive blood return, curos cap applied. * Nadia Zee RN - 03/10/2023 11:36 AM EST Long catheter removed * Eileen Austin RN - 03/10/2023 12:14 AM EST Blood sugar 79 gave patient hailee crackers and pudding. Complained / pain percocet was given * Yue Ferris RN - 03/09/2023 2:22 PM EST Upon rounding right upper arm dual lumen PICC with current CHG dressing dry and intact. One lumen in use, one with brisk blood return and flushes easily, Curos cap intact. * Olga Paz RN - 03/08/2023 1:[address] Oconnor notified of retained urine. Order to insert long catheter. 16F long catheter placed, clear yellow urine return. Pt tolerated well. * Olga Paz RN - 03/08/2023 12:48 AM EST Pt unable to urinate but continues to have an urge to do so. Bladder scan performed with 1152ml found. Page out to hospitalist. * Nadia Zee RN - 03/07/2023 5:09 PM EST Pt with 10cc urine output since long removed, bladder scanned for over 650cc, pt straight cath [id number] * Olga Paz RN - 03/07/2023 5:47 AM EST Long catheter removed per order. Pt tolerated well * Vic Gilliland RN - 03/06/2023 4:22 PM EST Seeking clarification of appropriate disposition of patient and possible transfer to SDU. Patient understands possibility of transfer. * Vic Gilliland RN - 03/06/2023 9:01 AM EST Returned to bed with assist of two. Head of bed elevated 45 degrees. * Ron Mancera RN - 03/05/2023 4:[address] Magaña at bedside, informed of the muscle spasm and administering PRN diazepam. No new orders placed. Plan to remove NGT tomorrow morning. * Ron Mancera RN - 03/05/2023 2:01 PM EST Patient in the unit from PACU, unable to transfer in [facility]. No admit order yet. PACU Rns saw the warning note when trying to transfer the patient without admit orders. PACU staff will reach out to vascular doctor and TRUCK CAR AND BUS CLEANER for the order. * Ron Mancera RN - 03/05/2023 1:58 PM EST Informed [employer] to ask Dr. Magaña for admit orders prior to transfer. documented in this [facility] Work Phone: 1(872) 549-753201-24-2024 Nurse Note* Nadia Zee RN - 03/10/2023 11:36 AM EST Long catheter removed [facility]01-24-2024 Nurse Note* Eileen Austin RN - 03/10/2023 12:14 AM EST Blood sugar 79 gave patient hailee crackers and pudding. Complained 7/10 pain percocet was given [facility]01-23-2024 Consult note* Jin Vargas MD - 03/09/2023 4:02 PM EST Reason For Consult Urinary retention History Of Present Illness Abbey Garcia is a 32 y.o. female presenting with median arcuate ligament syndrome. On 03/05/2023 she underwent a laparotomy and release of the median arcuate ligament. The procedure went well. She had a Long catheter placed prior to surgery. Yesterday the catheter was removed. She was unable to void after 10 to 11 hours and had the Long catheter replaced. She is more comfortable now. Prior to catheter placement she was quite uncomfortable. She continues to get pain medication. She is able to get out of bed. Prior to admission she reports no significant urinary symptoms. She did have some mild stress incontinence.She had no problems initiating urinary stream or emptying her bladder. Preop u rinalysis was normal. Past Medical History She has a past medical history of Anxiety, Arthritis, Asthma, CPAP (continuous positive airway pressure) dependence, Depression, Dizziness, GERD (gastroesophageal reflux disease), Hypothyroidism, Irritable bowel syndrome, Median arcuate ligament syndrome ([facility]/HCC), PCOS (polycystic ovarian syndrome), PONV (postoperative nausea and vomiting), PUD (peptic ulcer disease), and Shortness of breath. She has no past medical history of MARSHAL (acute kidney injury) ([facility]), Autoimmune disorder ([facility]), Bipolar disorder ([facility]/HCC), BPH (benign prostatic hyperplasia), Cerebral aneurysm, Cervical cancer ([facility]), Cervical disc disease, Chronic kidney disease, CKD (chronic kidney disease), Cognitivedecline, Crohn's disease ([facility]), Dementia ([facility]), Dysphagia, Endometrial cancer ([facility]), Esophageal cancer ([facility]), Esophageal disease, ESRD (end stage renal disease) ([facility]), Fibromyalgia, primary, Fractures, Gastric cancer ([facility]), Gender dysphoria, GI (gastrointestinal bleed), Hemodialysis status ([facility]), Hernia, internal, History of peritoneal dialysis, HIV disease ([facility]), Immunocompromised ([facility]), Liver disease, Lumbar disc disease, Mastocytosis, MS (multiple sclerosis) ([facility]), Muscular dystrophy ([facility]), Myasthenia gravis ([facility]), Neuromuscular disorder ([facility]), Ovarian cancer ([facility]), Pancreatitis, Peptic ulcer disease, Prematurity, PTSD (post-traumatic stress disorder), Schizophrenia ([facility]), Seizure disorder ([facility]), Spinal stenosis, Substanceaddiction ([facility]), Syncope, TIA (transient ischemic attack), Ulcerative colitis ([facility]), Urinary tract infection, Uterine cancer ([facility]), or Vertigo. Surgical History She has a past surgical history that includes CT angio abdomen pelvis w and or wo IV IV contrast (12/14/2022); Gastric bypass; section, classic; ERCP w/ sphincterotomy and balloon dilation; Appendectomy; and Cholecystectomy. Social History She reports that she has never smoked. She has never used smokeless tobacco. She reports that she does not currently use alcohol. She reports that she does not use drugs. Family History Family History Problem Relation Name Age of Onset Diabetes Mother Jessica Artino Hypertension Mother Jessica Artino Cancer Maternal Grandfather Cedrick Kraus COPD Maternal Grandfather Cedrick Kraus Heart disease Maternal Grandfather Cedrick Kraus Kidney disease Maternal Grandfather Cedrick Kraus Hypertension Maternal Grandmother Grandpa Anesthesia problems Paternal Grandfather Elan Artino Arthritis Paternal Grandfather Elan Artino Hypertension Paternal Grandfather Elan Artino Anesthesia related problems Paternal Grandfather Elan Artino COPD Paternal Grandmother Grandmother Diabetes Paternal Grandmother Grandmother Asthma Brother Adán Artino Allergies Codeine and Nsaids (non-steroidal anti-inflammatory drug) Review of Systems As per admission HPI Physical Exam Awake, alert, oriented HEENT: Normal extraocular movements Neck: Supple Lungs: Normal respiratory pattern Back: No CVA tenderness Abdomen: Healing midline incision. No abdominal masses but she is tender. : Long catheter in place Psychological: Normal affect Last Recorded Vitals Blood pressure 129/79, pulse 68, temperature 36.6 C (97.9 F), temperature source Axillary, resp. rate 18, height 1.676 m (5' 5.98 ), weight 84.2 kg (185 lb 10 oz), SpO2 99 %. Relevant Results Reviewed urinalyses and laboratory values. CT shows no abnormalities. Assessment/Plan Urinary retention: I believe that this is just postop retention from a deconditioned state and painmedication. She has had no prior urinary issues and there is nothing about the surgery that interferes with her bladder functioning. At this point, I would leave the Long catheter in until the morning of discharge and have it removed again for a voiding trial. I spent 16 minutes in the professional and overall care of this patient. Jin Vargas MD [facility] Work Phone: [phone]) 385-788401-23-2024 Consult note* Jin Vargas MD - 03/09/2023 4:02 PM EST Reason For Consult Urinary retention History Of Present Illness Abbey Garcia is a 32 y.o. female presenting with median arcuate ligament syndrome. On 03/05/2023 she underwent a laparotomy and release of the median arcuate ligament. The procedure went well. She had a Long catheter placed prior to surgery. Yesterday the catheter was removed. She was unable to void after 10 to 11 hours and had the Long catheter replaced. She is more comfortable now. Prior to catheter placement she was quite uncomfortable. She continues to get pain medication. She is able to get out of bed. Prior to admission she reports no significant urinary symptoms. She did have some mild stress incontinence.She had no problems initiating urinary stream or emptying her bladder. Preop u rinalysis was normal. Past Medical History She has a past medical history of Anxiety, Arthritis, Asthma, CPAP (continuous positive airway pressure) dependence, Depression, Dizziness, GERD (gastroesophageal reflux disease), Hypothyroidism, Irritable bowel syndrome, Median arcuate ligament syndrome ([facility]/HCC), PCOS (polycystic ovarian syndrome), PONV (postoperative nausea and vomiting), PUD (peptic ulcer disease), and Shortness of breath. She has no past medical history of MARSHAL (acute kidney injury) ([facility]), Autoimmune disorder ([facility]), Bipolar disorder ([facility]), BPH (benign prostatic hyperplasia), Cerebral aneurysm, Cervical cancer ([facility]), Cervical disc disease, Chronic kidney disease, CKD (chronic kidney disease), Cognitivedecline, Crohn's disease ([facility]), Dementia ([facility]), Dysphagia, Endometrial cancer ([facility]), Esophageal cancer ([facility]), Esophageal disease, ESRD (end stage renal disease) ([facility]), Fibromyalgia, primary, Fractures, Gastric cancer ([facility]), Gender dysphoria, GI (gastrointestinal bleed), Hemodialysis status ([facility]), Hernia, internal, History of peritoneal dialysis, HIV disease ([facility]), Immunocompromised ([facility]), Liver disease, Lumbar disc disease, Mastocytosis, MS (multiple sclerosis) ([facility]), Muscular dystrophy ([facility]), Myasthenia gravis ([facility]), Neuromuscular disorder ([facility]), Ovarian cancer ([facility]), Pancreatitis, Peptic ulcer disease, Prematurity, PTSD (post-traumatic stress disorder), Schizophrenia ([facility]), Seizure disorder ([facility]), Spinal stenosis, Substanceaddiction ([facility]), Syncope, TIA (transient ischemic attack), Ulcerative colitis (CMS/HCC), Urinary tract infection, Uterine cancer (CMS/HCC), or Vertigo. Surgical History She has a past surgical history that includes CT angio abdomen pelvis w and or wo IV IV contrast (12/14/2022); Gastric bypass; section, classic; ERCP w/ sphincterotomy and balloon dilation; Appendectomy; and Cholecystectomy. Social History She reports that she has never smoked. She has never used smokeless tobacco. She reports that she does not currently use alcohol. She reports that she does not use drugs. Family History Family History Problem Relation Name Age of Onset Diabetes Mother Jessica Galeasino Hypertension Mother Jessica Galeasino Cancer Maternal Grandfather Cedrick Kraus COPD Maternal Grandfather Cedrick Kraus Heart disease Maternal Grandfather Cedrick Kraus Kidney disease Maternal Grandfather Cedrick Kraus Hypertension Maternal Grandmother Grandpa Anesthesia problems Paternal Grandfather Elan Artino Arthritis Paternal Grandfather Elan Artino Hypertension Paternal Grandfather Elan Artino Anesthesia related problems Paternal Grandfather Elan Artino COPD Paternal Grandmother Grandmother Diabetes Paternal Grandmother Grandmother Asthma Brother Adán Moise Allergies Codeine and Nsaids (non-steroidal anti-inflammatory drug) Review of Systems As per admission HPI Physical Exam Awake, alert, oriented HEENT: Normal extraocular movements Neck: Supple Lungs: Normal respiratory pattern Back: No CVA tenderness Abdomen: Healing midline incision. No abdominal masses but she is tender. : Long catheter in place Psychological: Normal affect Last Recorded Vitals Blood pressure 129/79, pulse 68, temperature 36.6 C (97.9 F), temperature source Axillary, resp. rate 18, height 1.676 m (5' 5.98 ), weight 84.2 kg (185 lb 10 oz), SpO2 99 %. Relevant Results Reviewed urinalyses and laboratory values. CT shows no abnormalities. Assessment/Plan Urinary retention: I believe that this is just postop retention from a deconditioned state and painmedication. She has had no prior urinary issues and there is nothing about the surgery that interferes with her bladder functioning. At this point, I would leave the Long catheter in until the morning of discharge and have it removed again for a voiding trial. I spent 16 minutes in the professional and overall care of this patient. Jin Vargas MD * Yue Saravia RD, LD - 03/06/2023 9:55 AM EST Nutrition Assessement Note Nutrition Assessment Reason for Assessment: Admission nursing screening (MST 3) Reason for Hospital Admission: Abbey Garcia is a 32 y.o. female who is admitted for release of themedian arcuate ligament via open laparotomy by Dr. Magaña on 03/05/23 for suspected median arcuate ligament syndrome. Hx noted in Dr. Magaña's H&P note from 03/05/23: Patient is a 32-year-old woman who is suffering from chronic midepigastric pain with any oral intake. This began over a decade ago when she had somediscomfort postprandially and underwent a cholecystectomy. She was doing otherwise well until she had her 3 children. With her last child in 2019 which she delivered by as with her other earlier to, she was having severe epigastric abdominal pain with eating and this persisted postoperatively. 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 She was seen at [facility] by Dr. Kat and underwent an appendectomy when she arrived [...] of hypoglycemia and weakness. She is unable toeat any food currently and gets her nutrition via a PICC line and TPN. She had a CT angiogram recently at [facility] but this is not available for [...] This is with Dr. Ramos over the [facility]. Currently any oral intake will result in nausea and vomiting. Has a PICC for daily TPN which she has been receiving since 12/07. Current NG. States she tolerateda few sips of max Boost a couple days ago. Clear liquid diet ordered shortly after visiting pt. Will provide TPN as well if po is not tolerated. Nutrition History: Food and Nutrient History: NPO. on home TPN x 12 daily. she is unsure of TPN formula she recieves. Anthropometrics: Ht: 167.6 cm (5' 5.98 ), Wt: 83.8 kg (184 lb 11.9 oz), BMI: 29.83 IBW/kg (Dietitian Calculated): 59.09 kg Percent of IBW: 142 % Weight Change: Weight History / % Weight Change: usual wt 185-190# Nutrition Focused Physical Exam Findings: Subcutaneous Fat Loss Orbital Fat Pads: Well nourshed (slightly bulging fat pads) Buccal Fat Pads: Well nourished (full, rounded cheeks) Muscle Wasting Temporalis: Well nourished (well-defined muscle) Pectoralis (Clavicular Region): Well nourished (clavicle not visible) Deltoid/Trapezius: Well nourished (rounded appearance at arm, shoulder, neck) Interosseous: Well nourished (muscle bulges) Physical Findings (Nutrition Deficiency/Toxicity) Skin: Positive (abd surgical incision) Nutrition Significant Labs: Lab Results Component Value Date WBC 5.5 03/06/2023 HGB 11.8 (L) 03/06/2023 HCT 35.1 (L) 03/06/2023 PLT 179 03/06/2023 ALT 13 02/12/2023 AST 21 02/12/2023 NA 137 03/06/2023 K 3.7 03/06/2023 CL 109 (H) 03/06/2023 CREATININE 0.70 03/06/2023 BUN 5 (L) 03/06/2023 CO2 21 (L) 03/06/2023 HGBA1C 5.1 11/08/2019 Current Facility-Administered Medications: acetaminophen (Tylenol) tablet 650 mg, 650 mg, oral, q4h PRN OR acetaminophen (Tylenol) oral liquid 650 mg, 650 mg, oral, q4h PRN OR acetaminophen (Tylenol) suppository 650 mg, 650 mg, rectal, q4h PRN, Jason Foster, BRANCH SERVICE ASSOCIATE-APPLICATION SECURITY ARCHITECT albuterol 2.5 mg /3 mL (0.083 %) nebulizer solution 3 mL, 3 mL, nebulization, q4h PRN, Desmond Tirado PA-C busPIRone (Buspar) tablet 10 mg, 10 mg, oral, BID, Desmond Tirado PA-C, 10 mg at 03/06/23 0907 dextrose 10 % in water (D10W) infusion, 0.3 g/kg/hr, intravenous, Once PRN, Desmond Tirado PA-C dextrose 5 % and sodium chloride 0.9 % with KCl 20 mEq/L infusion, 125 mL/hr, intravenous, Continuous, JAMA Lynn, Last Rate: 125 mL/hr at 03/06/23 1009, 125 mL/hr at 03/06/23 1009 dextrose 50 % injection 25 g, 25 g, intravenous, q15 min PRN, Desmond Tirado PA-C diazePAM (Valium) injection 5 mg, 5 mg, intravenous, q6h PRN, JAMA Lynn, 5 mg at 03/06/23 1049 escitalopram (Lexapro) tablet 20 mg, 20 mg, oral, Daily, Desmond Tirado PA-C, 20 mg at 03/06/23 0907 famotidine (Pepcid) tablet 20 mg, 20 mg, oral, BID OR famotidine PF (Pepcid) injection 20 mg, 20 mg, intravenous, BID, Baldomero Richards, [facility], 20 mg at 03/06/23 0854 ferrous sulfate (325 mg ferrous sulfate) tablet 1 tablet, 1 tablet, oral, Daily with breakfast, Desmond Tirado PA-C, 1 tablet at 03/06/23 0907 glucagon (Glucagen) injection 1 mg, 1 mg, intramuscular, q15 min PRN, Desmond Tirado PA-C HYDROmorphone (Dilaudid) injection 0.5 mg, 0.5 mg, intravenous, q2h PRN, JAMA Lynn, 0.5 mg at 03/06/23 0854 hydrOXYzine HCL (Atarax) tablet 25 mg, 25 mg, oral, Daily PRN, Desmond Tirado PA-C insulin lispro (HumaLOG) injection 0-5 Units, 0-5 Units, subcutaneous, q4h, Desmond Tirado PA-C, 1 Units at 03/06/23 0433 levothyroxine (Synthroid, Levoxyl) tablet 100 mcg, 100 mcg, oral, Daily, Desmond Tirado PA-C, 100mcg at 03/06/23 0602 liothyronine (Cytomel) tablet 5 mcg, 5 mcg, oral, Daily, Desmond Tirado PA-C, 5 mcg at 03/06/23 0910 mirtazapine (Remeron) tablet 15 mg, 15 mg, oral, Nightly, Desmond Tirado PA-C, 15 mg at 03/05/23 214 ondansetron (Zofran) tablet 4 mg, 4 mg, oral, q8h PRN OR ondansetron (Zofran) injection 4 mg, 4mg, intravenous, q8h PRN, Jason Foster APRN-BETH, 4 mg at 03/06/23 0603 oxyCODONE-acetaminophen (Percocet) 5-325 mg per tablet 1 tablet, 1 tablet, oral, q4h PRN, Jason Mckeon [employer] polyethylene glycol (Glycolax, Miralax) packet 17 g, 17 g, oral, Daily PRN, Desmond Tirado PA-C sennosides (Senokot) tablet 17.2 mg, 2 tablet, oral, BID, Jason Foster APRN-BETH, 17.2 mg at 03/06/23 0900 topiramate (Topamax) tablet 50 mg, 50 mg, oral, BID, Desmond Tirado PA-C, 50 mg at 03/06/23 0910 Dietary Orders (From admission, onward) Start Ordered 03/06/23 1016 Adult diet Clear Liquid Diet effective now Question: Diet type Answer: Clear Liquid 03/06/23 1015 Estimated Needs: Estimated Energy Needs Total Energy Estimated Needs (kCal): 1773 kCal Total Estimated Energy Need per Day (kCal/kg): 30 kCal/kg Method for Estimating Needs: IBW Estimated Protein Needs Total Protein Estimated Needs (g): 71 g Total Protein Estimated Needs (g/kg): 1.2 g/kg Method for Estimating Needs: IBW Estimated Fluid Needs Total Fluid Estimated Needs (mL): 1773 mL Method for Estimating Needs: 1 ml/kcal Nutrition Diagnosis Nutrition Diagnosis: Malnutrition Diagnosis Patient has Malnutrition Diagnosis: No Nutrition Diagnosis Patient has Nutrition Diagnosis: Yes Diagnosis Status (1): New Nutrition Diagnosis 1: Inadequate oral intake Related to (1): decreased ability to consume sufficient energy As Evidenced by (1): conditions associated with dx Nutrition Interventions/Recommendations Nutrition Interventions and Recommendations: Nutrition Prescription: Individualized Nutrition Prescription Provided for : 1773 kcals and 71g protein to be provided via diet or via alternate nutrition Nutrition Interventions: Food and/or Nutrient Delivery Interventions Interventions: Meals and snacks, Parenteral nutrition/ IV fluids Meals and Snacks: General healthful diet Goal: advance as able Parenteral Nutrition/IV Fluids: Modify composition of parenteral nutrition, Modify rate of parenteral nutrition Formula: if unable to tolerate oral diet, provide Clinimix 5/20 @ rate of 83 ml/hr x 24 hrs to provide 1760 kcals and 100g protein in total volume of 2000 ml/day. GIR: 3.3 mg/kg/min. Education Documentation No documentation found. Nutrition Monitoring and Evaluation Monitoring/Evaluation: Food/Nutrient Related History Monitoring Monitoring and Evaluation Plan: Energy intake Energy Intake: Estimated energy intake Criteria: monitor for diet order change Body Composition/Growth/Weight History Monitoring and Evaluation Plan: Weight Weight: Measured weight Criteria: pt will maintain wt during hospitalization Time Spent/Follow-up: Follow Up Time Spent (min): 30 minutes Last Date of Nutrition Visit: 03/06/23 Nutrition Follow-Up Needed?: 3-5 days Follow up Comment: 03/09/23 [facility] 1(887) 141-198901-23-2024 Nurse Note* Yue Ferris RN - 03/09/2023 2:22 PM EST Upon rounding right upper arm dual lumen PICC with current CHG dressing dry and intact. One lumen in use, one with brisk blood return and flushes easily, Curos cap intact. [facility] Plan of care note* Care Plan - Danny Middleton RN - 03/08/2023 11:21 PM EST The patient's goals for the shift include rest The clinical goals for the shift include pain will be controled overnight. [facility]01-22-2024 Miscellaneous Notes* Care Plan - Danny Middleton RN - 03/08/2023 11:21 PM EST The patient's goals for the shift include rest The clinical goals for the shift include pain will be controled overnight. * Care Plan - Cole Nuñez RN - 03/08/2023 8:40 AM EST The patient's goals for the shift include rest The clinical goals for the shift include safety, increase activity and ambulation Over the shift, the patient did not make progress toward the following goals. Barriers to progression include none. Recommendations to address these barriers include assist with ADLs Problem: Pain - Adult Goal: Verbalizes/displays adequate comfort level or baseline comfort level Outcome: Progressing Problem: Safety - Adult Goal: Free from fall injury Outcome: Progressing Problem: Discharge Planning Goal: Discharge to home or other facility with appropriate resources Outcome: Progressing Problem: Chronic Conditions and Co-morbidities Goal: Patient's chronic conditions and co-morbidity symptoms are monitored and maintained or improved Outcome: Progressing Problem: Skin Goal: Decreased wound size/increased tissue granulation at next dressing change Outcome: Progressing Goal: Participates in plan/prevention/treatment measures Outcome: Progressing Goal: Prevent/manage excess moisture Outcome: Progressing Goal: Prevent/minimize sheer/friction injuries Outcome: Progressing Goal: Promote/optimize nutrition Outcome: Progressing Flowsheets (Taken 03/08/2023 0840) Promote/optimize nutrition: Monitor/record intake including meals Consume > 50% meals/supplements Goal: Promote skin healing Outcome: Progressing Problem: Fall/Injury Goal: Not fall by end of shift Outcome: Progressing Goal: Be free from injury by end of the shift Outcome: Progressing Goal: Verbalize understanding of personal risk factors for fall in the hospital Outcome: Progressing Goal: Verbalize understanding of risk factor reduction measures to prevent injury from fall in the home Outcome: Progressing Goal: Use assistive devices by end of the shift Outcome: Progressing Goal: Pace activities to prevent fatigue by end of the shift Outcome: Progressing Problem: Pain Goal: Takes deep breaths with improved pain control throughout the shift Outcome: Progressing Goal: Turns in bed with improved pain control throughout the shift Outcome: Progressing Goal: Walks with improved pain control throughout the shift Outcome: Progressing Goal: Performs ADL's with improved pain control throughout shift Outcome: Progressing Goal: Participates in PT with improved pain control throughout the shift Outcome: Progressing Goal: Free from opioid side effects throughout the shift Outcome: Progressing Goal: Free from acute confusion related to pain meds throughout the shift Outcome: Progressing . * Care Plan - Olga Paz RN - 03/08/2023 2:27 AM EST The patient's goals for the shift include rest The clinical goals for the shift include increase activity Over the shift, the patient did not make progress toward the following goals. Barriers to progression include weak/pain. Recommendations to address these barriers include administer medications/interventions as ordered. * Care Plan - Nadia Zee RN - 03/07/2023 8:50 AM EST The patient's goals for the shift include rest The clinical goals for the shift include increase activity Over the shift, the patient did not make progress toward the following goals. Barriers to progression include . Recommendations to address these barriers include . * Care Plan - Olga Paz RN - 03/06/2023 8:57 PM EST The patient's goals for the shift include rest The clinical goals for the shift include increase activity Over the shift, the patient did not make progress toward the following goals. Barriers to progression include weak/pain. Recommendations to address these barriers include encouragement/administer medications/interventions as ordered. * Care Plan - Vic Gilliland RN - 03/06/2023 9:49 AM EST Problem: Pain - Adult Goal: Verbalizes/displays adequate comfort level or baseline comfort level Outcome: Progressing Problem: Safety - Adult Goal: Free from fall injury Outcome: Progressing Problem: Discharge Planning Goal: Discharge to home or other facility with appropriate resources Outcome: Progressing Problem: Chronic Conditions and Co-morbidities Goal: Patient's chronic conditions and co-morbidity symptoms are monitored and maintained or improved Outcome: Progressing Problem: Skin Goal: Decreased wound size/increased tissue granulation at next dressing change Outcome: Progressing Goal: Participates in plan/prevention/treatment measures Outcome: Progressing Goal: Prevent/manage excess moisture Outcome: Progressing Goal: Prevent/minimize sheer/friction injuries Outcome: Progressing Goal: Promote/optimize nutrition Outcome: Progressing Goal: Promote skin healing Outcome: Progressing Problem: Fall/Injury Goal: Not fall by end of shift Outcome: Progressing Goal: Be free from injury by end of the shift Outcome: Progressing Goal: Verbalize understanding of personal risk factors for fall in the hospital Outcome: Progressing Goal: Verbalize understanding of risk factor reduction measures to prevent injury from fall in the home Outcome: Progressing Goal: Use assistive devices by end of the shift Outcome: Progressing Goal: Pace activities to prevent fatigue by end of the shift Outcome: Progressing Problem: Pain Goal: Takes deep breaths with improved pain control throughout the shift Outcome: Progressing Goal: Turns in bed with improved pain control throughout the shift Outcome: Progressing Goal: Walks with improved pain control throughout the shift Outcome: Progressing Goal: Performs ADL's with improved pain control throughout shift Outcome: Progressing Goal: Participates in PT with improved pain control throughout the shift Outcome: Progressing Goal: Free from opioid side effects throughout the shift Outcome: Progressing Goal: Free from acute confusion related to pain meds throughout the shift Outcome: Progressing The patient's goals for the shift include rest The clinical goals for the shift include monitor vitals and incision and manage pain Over the shift, the patient did not make progress toward the following goals. Barriers to progression include shortness of breath. Recommendations to address these barriers include steroids. * Care Plan - Ron Mancera RN - 03/05/2023 3:50 PM EST The patient's goals for the shift include rest. The clinical goals for the shift include monitor vitals and incision and manage pain. Problem: Pain - Adult Goal: Verbalizes/displays adequate comfort level or baseline comfort level 03/05/2023 1549 by Ron Mancera RN Outcome: Progressing 03/05/2023 1549 by Ron Mancera RN Outcome: Progressing Problem: Safety - Adult Goal: Free from fall injury 03/05/2023 1549 by Ron Mancera RN Outcome: Progressing 03/05/2023 1549 by Ron Mancera RN Outcome: Progressing Problem: Discharge Planning Goal: Discharge to home or other facility with appropriate resources 03/05/2023 1549 by Ron Mancera RN Outcome: Progressing 03/05/2023 1549 by Ron Mancera RN Outcome: Progressing Problem: Chronic Conditions and Co-morbidities Goal: Patient's chronic conditions and co-morbidity symptoms are monitored and maintained or improved 03/05/2023 1549 by Ron Mancera RN Outcome: Progressing 03/05/2023 1549 by Ron Mancera RN Outcome: Progressing Problem: Skin Goal: Decreased wound size/increased tissue granulation at next dressing change 03/05/2023 1549 by Ron Mancera RN Outcome: Progressing 03/05/2023 1549 by Ron Mancera RN Outcome: Progressing Goal: Participates in plan/prevention/treatment measures 03/05/2023 1549 by Ron Mancera RN Outcome: Progressing 03/05/2023 1549 by Ron Mancera RN Outcome: Progressing Goal: Prevent/manage excess moisture 03/05/2023 1549 by Ron Mancera RN Outcome: Progressing 03/05/2023 1549 by Ron Mancera RN Outcome: Progressing Goal: Prevent/minimize sheer/friction injuries 03/05/2023 1549 by Ron Mancera RN Outcome: Progressing 03/05/2023 1549 by Ron Mancera RN Outcome: Progressing Goal: Promote/optimize nutrition 03/05/2023 1549 by Ron Mancera RN Outcome: Progressing 03/05/2023 1549 by Ron Mancera RN Outcome: Progressing Goal: Promote skin healing 03/05/2023 1549 by Ron Mancera RN Outcome: Progressing 03/05/2023 1549 by Ron Mancera RN Outcome: Progressing Problem: Fall/Injury Goal: Not fall by end of shift 03/05/2023 1549 by Ron Mancera RN Outcome: Progressing 03/05/2023 1549 by Ron Mancera RN Outcome: Progressing Goal: Be free from injury by end of the shift 03/05/2023 1549 by Ron Mancera RN Outcome: Progressing 03/05/2023 1549 by Ron Mancera RN Outcome: Progressing Goal: Verbalize understanding of personal risk factors for fall in the hospital 03/05/2023 1549 by Ron Mancera RN Outcome: Progressing 03/05/2023 1549 by Ron Mancera RN Outcome: Progressing Goal: Verbalize understanding of risk factor reduction measures to prevent injury from fall in the home 03/05/2023 1549 by Ron Mancera RN Outcome: Progressing 03/05/2023 1549 by Ron Mancera RN Outcome: Progressing Goal: Use assistive devices by end of the shift 03/05/2023 1549 by Ron Mancera RN Outcome: Progressing 03/05/2023 1549 by Ron Mancera RN Outcome: Progressing Goal: Pace activities to prevent fatigue by end of the shift 03/05/2023 1549 by Ron Mancera RN Outcome: Progressing 03/05/2023 1549 by Ron Mancera RN Outcome: Progressing Problem: Pain Goal: Takes deep breaths with improved pain control throughout the shift 03/05/2023 1549 by Ron Mancera RN Outcome: Progressing 03/05/2023 1549 by Ron Mancera RN Outcome: Progressing Goal: Turns in bed with improved pain control throughout the shift 03/05/2023 1549 by Ron Mancera RN Outcome: Progressing 03/05/2023 1549 by Ron Mancera RN Outcome: Progressing Goal: Walks with improved pain control throughout the shift 03/05/2023 1549 by Ron Mancera RN Outcome: Progressing 03/05/2023 1549 by Ron Mancera RN Outcome: Progressing Goal: Performs ADL's with improved pain control throughout shift 03/05/2023 1549 by Ron Mancera RN Outcome: Progressing 03/05/2023 1549 by Ron Mancera RN Outcome: Progressing Goal: Participates in PT with improved pain control throughout the shift 03/05/2023 1549 by Ron Mancera RN Outcome: Progressing 03/05/2023 1549 by Ron Mancera RN Outcome: Progressing Goal: Free from opioid side effects throughout the shift 03/05/2023 1549 by Ron Mancera RN Outcome: Progressing 03/05/2023 1549 by Ron Mancera RN Outcome: Progressing Goal: Free from acute confusion related to pain meds throughout the shift 03/05/2023 1549 by Ron Mancera RN Outcome: Progressing 03/05/2023 1549 by Ron Mancera RN Outcome: Progressing * Perioperative Nursing Note - Samantha Fields RN - 03/05/2023 1:52 PM EST Patient meets PACU discharge criteria. * Perioperative Nursing Note - Samantha Fields RN - 03/05/2023 1:07 PM EST Patient to PACU bay 7 with left radial art line in place. Zeroed and waveforms appropriate. Clean/dry and intact. VSS. * Op Note - Sherry Magaña MD - 03/05/2023 10:51 AM EST Images from the original note were not included. 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 Blood Loss 20 mL Total Output 420 mL Net Net Volume 880 mL Specimen: ID Type Source Tests Collected by Time 1 : Median Arcuate Ligament Tissue LIGAMENT SURGICAL PATHOLOGY EXAM Sherry Magaña MD 03/05/2023 1125 Staff: Substation Manager: Mary Mccabe RN; Natalie Young RN Scrub Person: Nadia Escobedo; Thu Ford Drains and/or Catheters: NG/OG/Feeding Tube NG - Jackson sump 16 Fr Right nostril (Active) Tube Status Low intermittent suction 03/05/23 1257 Site Assessment Clean;Dry;Intact 03/05/23 1257 Drainage Appearance None 03/05/23 1257 Urethral Catheter Non-latex 16 Fr. (Active) Site Assessment Clean;Skin intact 03/05/23 1256 Collection Container Standard drainage bag 03/05/23 1256 Securement Method Securing device (Describe) 03/05/23 1256 Tourniquet Times: Implants: Implants Type Name Action Serial No. Implant MEMBRANE, SEPRAFILM, 5 X 6 IN - [id number] Implanted Findings: heavily inflammed ligamentous tissues and nerve tissues removed off celiac axis and aorta Indications: Abbey Garcia is an 32 y.o. 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 Positive response to celiac plexus block. Laparotomy chosen as patent hadgastric sleeve/gastric bypass surgery The patient was seen in the preoperative area. The risks, benefits, complications, treatment options, non-operative alternatives, expected recovery and outcomes were discussed with the patient. The possibilities of reaction to medication, pulmonary aspiration, injury to surrounding structures, bleeding, recurrent infection, the need for additional procedures, failure to diagnose a condition, and creating a complication requiring transfusion or operation were discussed with the patient. The patient concurred with the proposed plan, giving informed consent. The site of surgery was properly noted/marked if necessary per policy. The patient has been actively warmed in preoperative area. Preopera tive antibiotics have been ordered and given within 1 hours of incision. Venous thrombosis prophylaxis are not indicated. Procedure Details: Supine position, chest abdomen and groins prepped and draped. Midline epigastric incision created from xiphoid to umbilicus. Abdomen entered and no significant adhesions of top was encountered. Therewas some adhesions laterally to the left side which I left alone. The falciform ligament and the left lobe of the liver was fully mobilized and the left lobe of the liver was retracted revealing the l sahra sac. The lesser sac was entered and the aorta was palpable underneath the diaphragm muscle. The right deborah of the diaphragm was taken down and the aorta revealed and dissection was then taken distally onto the celiac axis. Heavily inflamed tissues were encountered here and these had to be carefully dissected off of the vessels. Specimen of the median arcuate ligament was sent in 2 spots where matted neurologic tissue was intermixed with scar tissue and ligament. A combination of hook cautery and thunder beat cauterizer was used to expose the celiac axis down to its branching of hepatic and splenic arteries and the left gastric artery was preserved. The patient had an NG tube placed during the procedure and its tip was located in the proximal stomach sleeve. The wound was inspected for hemostasis. There was some bleeding from lymph nodes on top of the pancreas which I cauterized. Doppler examination of the celiac axis and common hepatic and splenic artery and left gastric arteries revealed normal flows in these vessels. Seprafilm was then applied to the dissected area and the liver was then brought over the dissected portion of the celiac axis. The abdomen was then closed with PDS to the fascia, Vicryl to the Avery's layer and running Monocryl to the skin. The skin was dressed with glue. Prior to full closure therectus sheath was infiltrated with local anesthesia consisting of lidocaine 1% with epinephrine mixed one-to-one with Marcaine half percent. The xiphoid was also infiltrated for pain control. Complications: None; patient tolerated the procedure well. Disposition: PACU - hemodynamically stable. Condition: stable Additional Details: Attending Attestation: I was present and scrubbed for the entire procedure. Sherry Magaña documented in this [facility] Work Phone: 1(199) 592-557201-22-2024 Plan of care note* Care Plan - Cole Nuñez RN - 03/08/2023 8:40 AM EST The patient's goals for the shift include rest The clinical goals for the shift include safety, increase activity and ambulation Over the shift, the patient did not make progress toward the following goals. Barriers to progression include none. Recommendations to address these barriers include assist with ADLs Problem: Pain - Adult Goal: Verbalizes/displays adequate comfort level or baseline comfort level Outcome: Progressing Problem: Safety - Adult Goal: Free from fall injury Outcome: Progressing Problem: Discharge Planning Goal: Discharge to home or other facility with appropriate resources Outcome: Progressing Problem: Chronic Conditions and Co-morbidities Goal: Patient's chronic conditions and co-morbidity symptoms are monitored and maintained or improved Outcome: Progressing Problem: Skin Goal: Decreased wound size/increased tissue granulation at next dressing change Outcome: Progressing Goal: Participates in plan/prevention/treatment measures Outcome: Progressing Goal: Prevent/manage excess moisture Outcome: Progressing Goal: Prevent/minimize sheer/friction injuries Outcome: Progressing Goal: Promote/optimize nutrition Outcome: Progressing Flowsheets (Taken 03/08/2023 0840) Promote/optimize nutrition: Monitor/record intake including meals Consume > 50% meals/supplements Goal: Promote skin healing Outcome: Progressing Problem: Fall/Injury Goal: Not fall by end of shift Outcome: Progressing Goal: Be free from injury by end of the shift Outcome: Progressing Goal: Verbalize understanding of personal risk factors for fall in the hospital Outcome: Progressing Goal: Verbalize understanding of risk factor reduction measures to prevent injury from fall in the home Outcome: Progressing Goal: Use assistive devices by end of the shift Outcome: Progressing Goal: Pace activities to prevent fatigue by end of the shift Outcome: Progressing Problem: Pain Goal: Takes deep breaths with improved pain control throughout the shift Outcome: Progressing Goal: Turns in bed with improved pain control throughout the shift Outcome: Progressing Goal: Walks with improved pain control throughout the shift Outcome: Progressing Goal: Performs ADL's with improved pain control throughout shift Outcome: Progressing Goal: Participates in PT with improved pain control throughout the shift Outcome: Progressing Goal: Free from opioid side effects throughout the shift Outcome: Progressing Goal: Free from acute confusion related to pain meds throughout the shift Outcome: Progressing . [facility]01-22-2024 Plan of care note* Care Plan - Olga Paz RN - 03/08/2023 2:27 AM EST The patient's goals for the shift include rest The clinical goals for the shift include increase activity Over the shift, the patient did not make progress toward the following goals. Barriers to progression include weak/pain. Recommendations to address these barriers include administer medications/interventions as ordered. [facility] Work Phone: [phone]) 834-799801-22-2024 Nurse Note* Olga Paz RN - 03/08/2023 1:[address] Oconnor notified of retained urine. Order to insert long catheter. 16F long catheter placed, clear yellow urine return. Pt tolerated well. [facility]01-22-2024 Nurse Note* Olga Paz RN - 03/08/2023 12:48 AM EST Pt unable to urinate but continues to have an urge to do so. Bladder scan performed with 1152ml found. Page out to hospitalist. [facility] Work Phone: 1(508) 916-398201-21-2024 Nurse Note* Nadia Zee RN - 03/07/2023 5:09 PM EST Pt with 10cc urine output since long removed, bladder scanned for over 650cc, pt straight cath [id number] [facility] Work Phone: 1(383) 310-187601-21-2024 Plan of care note* Care Plan - Nadia Zee RN - 03/07/2023 8:50 AM EST The patient's goals for the shift include rest The clinical goals for the shift include increase activity Over the shift, the patient did not make progress toward the following goals. Barriers to progression include . Recommendations to address these barriers include . [facility] Work Phone: 1(195) 298-850201-21-2024 Nurse Note* Olga Paz RN - 03/07/2023 5:47 AM EST Long catheter removed per order. Pt tolerated well [facility] Work Phone: 1([phone]) 952-524201-20-2024 Plan of care note* Care Plan - Olga Paz RN - 03/06/2023 8:57 PM EST The patient's goals for the shift include rest The clinical goals for the shift include increase activity Over the shift, the patient did not make progress toward the following goals. Barriers to progression include weak/pain. Recommendations to address these barriers include encouragement/administer medications/interventions as ordered. [facility] Work Phone: [phone] 339-585601-20-2024 Nurse Note* Vic Gilliland RN - 03/06/2023 4:22 PM EST Seeking clarification of appropriate disposition of patient and possible transfer to SDU. Patient understands possibility of transfer. [facility]01-20-2024 Consult note* Yue Saravia RD, LD - 03/06/2023 9:55 AM EST Nutrition Assessement Note Nutrition Assessment Reason for Assessment: Admission nursing screening (MST 3) Reason for Hospital Admission: Abbey Garcia is a 32 y.o. female who is admitted for release of themedian arcuate ligament via open laparotomy by Dr. Magaña on 03/05/23 for suspected median arcuate ligament syndrome. Hx noted in Dr. Magaña's H&P note from 03/05/23: Patient is a 32-year-old woman who is suffering from chronic midepigastric pain with any oral intake. This began over a decade ago when she had somediscomfort postprandially and underwent a cholecystectomy. She was doing otherwise well until she had her 3 children. With her last child in 2019 which she delivered by as with her other earlier to, she was having severe epigastric abdominal pain with eating and this persisted postoperatively. 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 She was seen at [facility] by Dr. Kat and underwent an appendectomy when she arrived [...] of hypoglycemia and weakness. She is unable toeat any food currently and gets her nutrition via a PICC line and TPN. She had a CT angiogram recently at [facility] but this is not available for [...] This is with Dr. Ramos over the [facility]. Currently any oral intake will result in nausea and vomiting. Has a PICC for daily TPN which she has been receiving since 12/07. Current NG. States she tolerateda few sips of max Boost a couple days ago. Clear liquid diet ordered shortly after visiting pt. Will provide TPN as well if po is not tolerated. Nutrition History: Food and Nutrient History: NPO. on home TPN x 12 daily. she is unsure of TPN formula she recieves. Anthropometrics: Ht: 167.6 cm (5' 5.98 ), Wt: 83.8 kg (184 lb 11.9 oz), BMI: 29.83 IBW/kg (Dietitian Calculated): 59.09 kg Percent of IBW: 142 % Weight Change: Weight History / % Weight Change: usual wt 185-190# Nutrition Focused Physical Exam Findings: Subcutaneous Fat Loss Orbital Fat Pads: Well nourshed (slightly bulging fat pads) Buccal Fat Pads: Well nourished (full, rounded cheeks) Muscle Wasting Temporalis: Well nourished (well-defined muscle) Pectoralis (Clavicular Region): Well nourished (clavicle not visible) Deltoid/Trapezius: Well nourished (rounded appearance at arm, shoulder, neck) Interosseous: Well nourished (muscle bulges) Physical Findings (Nutrition Deficiency/Toxicity) Skin: Positive (abd surgical incision) Nutrition Significant Labs: Lab Results Component Value Date WBC 5.5 03/06/2023 HGB 11.8 (L) 03/06/2023 HCT 35.1 (L) 03/06/2023 PLT 179 03/06/2023 ALT 13 02/12/2023 AST 21 02/12/2023 NA 137 03/06/2023 K 3.7 03/06/2023 CL 109 (H) 03/06/2023 CREATININE 0.70 03/06/2023 BUN 5 (L) 03/06/2023 CO2 21 (L) 03/06/2023 HGBA1C 5.1 11/08/2019 Current Facility-Administered Medications: acetaminophen (Tylenol) tablet 650 mg, 650 mg, oral, q4h PRN OR acetaminophen (Tylenol) oral liquid 650 mg, 650 mg, oral, q4h PRN OR acetaminophen (Tylenol) suppository 650 mg, 650 mg, rectal, q4h PRN, JAMA Lynn albuterol 2.5 mg /3 mL (0.083 %) nebulizer solution 3 mL, 3 mL, nebulization, q4h PRN, Desmond Tirado PA-C busPIRone (Buspar) tablet 10 mg, 10 mg, oral, BID, Desmond Tirado PA-C, 10 mg at 03/06/23 0907 dextrose 10 % in water (D10W) infusion, 0.3 g/kg/hr, intravenous, Once PRN, Desmond Tirado PA-C dextrose 5 % and sodium chloride 0.9 % with KCl 20 mEq/L infusion, 125 mL/hr, intravenous, Continuous, JAMA Lynn, Last Rate: 125 mL/hr at 03/06/23 1009, 125 mL/hr at 03/06/23 1009 dextrose 50 % injection 25 g, 25 g, intravenous, q15 min PRN, Desmond Tirado PA-C diazePAM (Valium) injection 5 mg, 5 mg, intravenous, q6h PRN, JAMA Lynn, 5 mg at 03/06/23 1049 escitalopram (Lexapro) tablet 20 mg, 20 mg, oral, Daily, Desmond Tirado PA-C, 20 mg at 03/06/23 0907 famotidine (Pepcid) tablet 20 mg, 20 mg, oral, BID OR famotidine PF (Pepcid) injection 20 mg, 20 mg, intravenous, BID, Baldomero Richards, [facility], 20 mg at 03/06/23 0854 ferrous sulfate (325 mg ferrous sulfate) tablet 1 tablet, 1 tablet, oral, Daily with breakfast, Desmond Tirado PA-C, 1 tablet at 03/06/23 0907 glucagon (Glucagen) injection 1 mg, 1 mg, intramuscular, q15 min PRN, Desmond Tirado PA-C HYDROmorphone (Dilaudid) injection 0.5 mg, 0.5 mg, intravenous, q2h PRN, JAMA Lynn, 0.5 mg at 03/06/23 0854 hydrOXYzine HCL (Atarax) tablet 25 mg, 25 mg, oral, Daily PRN, Desmond Tirado PA-C insulin lispro (HumaLOG) injection 0-5 Units, 0-5 Units, subcutaneous, q4h, Desmond Tirado PA-C, 1 Units at 03/06/23 0433 levothyroxine (Synthroid, Levoxyl) tablet 100 mcg, 100 mcg, oral, Daily, Desmond Tirado PA-C, 100mcg at 03/06/23 0602 liothyronine (Cytomel) tablet 5 mcg, 5 mcg, oral, Daily, Desmond Tirado PA-C, 5 mcg at 03/06/23 0910 mirtazapine (Remeron) tablet 15 mg, 15 mg, oral, Nightly, Desmond Tirado PA-C, 15 mg at 03/05/23 2142 ondansetron (Zofran) tablet 4 mg, 4 mg, oral, q8h PRN OR ondansetron (Zofran) injection 4 mg, 4mg, intravenous, q8h PRN, JAMA Lynn, 4 mg at 03/06/23 0603 oxyCODONE-acetaminophen (Percocet) 5-325 mg per tablet 1 tablet, 1 tablet, oral, q4h PRN, JAMA Bob polyethylene glycol (Glycolax, Miralax) packet 17 g, 17 g, oral, Daily PRN, Desmond Tirado PA-C sennosides (Senokot) tablet 17.2 mg, 2 tablet, oral, BID, JAMA Lynn, 17.2 mg at 03/06/23 0900 topiramate (Topamax) tablet 50 mg, 50 mg, oral, BID, Desmond Tirado PA-C, 50 mg at 03/06/23 0910 Dietary Orders (From admission, onward) Start Ordered 03/06/23 1016 Adult diet Clear Liquid Diet effective now Question: Diet type Answer: Clear Liquid 03/06/23 1015 Estimated Needs: Estimated Energy Needs Total Energy Estimated Needs (kCal): 1773 kCal Total Estimated Energy Need per Day (kCal/kg): 30 kCal/kg Method for Estimating Needs: IBW Estimated Protein Needs Total Protein Estimated Needs (g): 71 g Total Protein Estimated Needs (g/kg): 1.2 g/kg Method for Estimating Needs: IBW Estimated Fluid Needs Total Fluid Estimated Needs (mL): 1773 mL Method for Estimating Needs: 1 ml/kcal Nutrition Diagnosis Nutrition Diagnosis: Malnutrition Diagnosis Patient has Malnutrition Diagnosis: No Nutrition Diagnosis Patient has Nutrition Diagnosis: Yes Diagnosis Status (1): New Nutrition Diagnosis 1: Inadequate oral intake Related to (1): decreased ability to consume sufficient energy As Evidenced by (1): conditions associated with dx Nutrition Interventions/Recommendations Nutrition Interventions and Recommendations: Nutrition Prescription: Individualized Nutrition Prescription Provided for : 1773 kcals and 71g protein to be provided via diet or via alternate nutrition Nutrition Interventions: Food and/or Nutrient Delivery Interventions Interventions: Meals and snacks, Parenteral nutrition/ IV fluids Meals and Snacks: General healthful diet Goal: advance as able Parenteral Nutrition/IV Fluids: Modify composition of parenteral nutrition, Modify rate of parenteral nutrition Formula: if unable to tolerate oral diet, provide Clinimix 5/20 @ rate of 83 ml/hr x 24 hrs to provide 1760 kcals and 100g protein in total volume of 2000 ml/day. GIR: 3.3 mg/kg/min. Education Documentation No documentation found. Nutrition Monitoring and Evaluation Monitoring/Evaluation: Food/Nutrient Related History Monitoring Monitoring and Evaluation Plan: Energy intake Energy Intake: Estimated energy intake Criteria: monitor for diet order change Body Composition/Growth/Weight History Monitoring and Evaluation Plan: Weight Weight: Measured weight Criteria: pt will maintain wt during hospitalization Time Spent/Follow-up: Follow Up Time Spent (min): 30 minutes Last Date of Nutrition Visit: 03/06/23 Nutrition Follow-Up Needed?: 3-5 days Follow up Comment: 03/09/23 [facility]01-20-2024 Plan of care note* Care Plan - Vic Gilliland RN - 03/06/2023 9:49 AM EST Problem: Pain - Adult Goal: Verbalizes/displays adequate comfort level or baseline comfort level Outcome: Progressing Problem: Safety - Adult Goal: Free from fall injury Outcome: Progressing Problem: Discharge Planning Goal: Discharge to home or other facility with appropriate resources Outcome: Progressing Problem: Chronic Conditions and Co-morbidities Goal: Patient's chronic conditions and co-morbidity symptoms are monitored and maintained or improved Outcome: Progressing Problem: Skin Goal: Decreased wound size/increased tissue granulation at next dressing change Outcome: Progressing Goal: Participates in plan/prevention/treatment measures Outcome: Progressing Goal: Prevent/manage excess moisture Outcome: Progressing Goal: Prevent/minimize sheer/friction injuries Outcome: Progressing Goal: Promote/optimize nutrition Outcome: Progressing Goal: Promote skin healing Outcome: Progressing Problem: Fall/Injury Goal: Not fall by end of shift Outcome: Progressing Goal: Be free from injury by end of the shift Outcome: Progressing Goal: Verbalize understanding of personal risk factors for fall in the hospital Outcome: Progressing Goal: Verbalize understanding of risk factor reduction measures to prevent injury from fall in the home Outcome: Progressing Goal: Use assistive devices by end of the shift Outcome: Progressing Goal: Pace activities to prevent fatigue by end of the shift Outcome: Progressing Problem: Pain Goal: Takes deep breaths with improved pain control throughout the shift Outcome: Progressing Goal: Turns in bed with improved pain control throughout the shift Outcome: Progressing Goal: Walks with improved pain control throughout the shift Outcome: Progressing Goal: Performs ADL's with improved pain control throughout shift Outcome: Progressing Goal: Participates in PT with improved pain control throughout the shift Outcome: Progressing Goal: Free from opioid side effects throughout the shift Outcome: Progressing Goal: Free from acute confusion related to pain meds throughout the shift Outcome: Progressing The patient's goals for the shift include rest The clinical goals for the shift include monitor vitals and incision and manage pain Over the shift, the patient did not make progress toward the following goals. Barriers to progression include shortness of breath. Recommendations to address these barriers include steroids. [facility] Work Phone: 1(987) 456-280201-20-2024 Nurse Note* Vic Gilliland RN - 03/06/2023 9:01 AM EST Returned to bed with assist of two. Head of bed elevated 45 degrees. [facility] Work Phone: 1(320) 361-425001-19-2024 Nurse Note* Ron Mancera RN - 03/05/2023 4:[address] Magaña at bedside, informed of the muscle spasm and administering PRN diazepam. No new orders placed. Plan to remove NGT tomorrow morning. [facility] Work Phone: 1([phone] 414-982701-19-2024 Plan of care note* Care Plan - Ron Mancera RN - 03/05/2023 3:50 PM EST The patient's goals for the shift include rest. The clinical goals for the shift include monitor vitals and incision and manage pain. Problem: Pain - Adult Goal: Verbalizes/displays adequate comfort level or baseline comfort level 03/05/2023 154 by Ron Mancera RN Outcome: Progressing 03/05/2023 1549 by Ron Mancera RN Outcome: Progressing Problem: Safety - Adult Goal: Free from fall injury 03/05/2023 1549 by Ron Mancera RN Outcome: Progressing 03/05/2023 1549 by Ron Mancera RN Outcome: Progressing Problem: Discharge Planning Goal: Discharge to home or other facility with appropriate resources 03/05/2023 154 by Ron Mancera RN Outcome: Progressing 03/05/2023 1549 by Ron Mancera RN Outcome: Progressing Problem: Chronic Conditions and Co-morbidities Goal: Patient's chronic conditions and co-morbidity symptoms are monitored and maintained or improved 03/05/2023 1549 by Ron Mancera RN Outcome: Progressing 03/05/2023 1549 by Ron Mancera RN Outcome: Progressing Problem: Skin Goal: Decreased wound size/increased tissue granulation at next dressing change 03/05/2023 1549 by Ron Mancera RN Outcome: Progressing 03/05/2023 1549 by Ron Mancera RN Outcome: Progressing Goal: Participates in plan/prevention/treatment measures 03/05/2023 1549 by Ron Mancera RN Outcome: Progressing 03/05/2023 1549 by Ron Mancera RN Outcome: Progressing Goal: Prevent/manage excess moisture 03/05/2023 1549 by Ron Mancera RN Outcome: Progressing 03/05/2023 1549 by Ron Mancera RN Outcome: Progressing Goal: Prevent/minimize sheer/friction injuries 03/05/2023 1549 by Ron Mancera RN Outcome: Progressing 03/05/2023 1549 by Ron aMncera RN Outcome: Progressing Goal: Promote/optimize nutrition 03/05/2023 1549 by Ron Mancera RN Outcome: Progressing 03/05/2023 1549 by Ron Mancera RN Outcome: Progressing Goal: Promote skin healing 03/05/2023 1549 by Ron Mancera RN Outcome: Progressing 03/05/2023 1549 by Ron Mancera RN Outcome: Progressing Problem: Fall/Injury Goal: Not fall by end of shift 03/05/2023 1549 by Ron Mancera RN Outcome: Progressing 03/05/2023 1549 by Ron Mancera RN Outcome: Progressing Goal: Be free from injury by end of the shift 03/05/2023 1549 by Ron Mancera RN Outcome: Progressing 03/05/2023 1549 by Ron Mancera RN Outcome: Progressing Goal: Verbalize understanding of personal risk factors for fall in the hospital 03/05/2023 1549 by Ron Mancera RN Outcome: Progressing 03/05/2023 1549 by Ron Mancera RN Outcome: Progressing Goal: Verbalize understanding of risk factor reduction measures to prevent injury from fall in the home 03/05/2023 1549 by Ron Mancera RN Outcome: Progressing 03/05/2023 1549 by Ron Mancera RN Outcome: Progressing Goal: Use assistive devices by end of the shift 03/05/2023 1549 by Ron Mancera RN Outcome: Progressing 03/05/2023 1549 by Ron Mancera RN Outcome: Progressing Goal: Pace activities to prevent fatigue by end of the shift 03/05/2023 1549 by Ron Mancera RN Outcome: Progressing 03/05/2023 1549 by Ron Mancera RN Outcome: Progressing Problem: Pain Goal: Takes deep breaths with improved pain control throughout the shift 03/05/2023 1549 by Ron aMncera RN Outcome: Progressing 03/05/2023 1549 by Ron Mancera RN Outcome: Progressing Goal: Turns in bed with improved pain control throughout the shift 03/05/2023 1549 by Ron Mancera RN Outcome: Progressing 03/05/2023 1549 by Ron Mancera RN Outcome: Progressing Goal: Walks with improved pain control throughout the shift 03/05/2023 1549 by Ron Mancera RN Outcome: Progressing 03/05/2023 1549 by Ron Mancera RN Outcome: Progressing Goal: Performs ADL's with improved pain control throughout shift 03/05/2023 1549 by Ron Mancera RN Outcome: Progressing 03/05/2023 1549 by Ron Mancera RN Outcome: Progressing Goal: Participates in PT with improved pain control throughout the shift 03/05/2023 1549 by Ron Mancera RN Outcome: Progressing 03/05/2023 1549 by Ron Mancera RN Outcome: Progressing Goal: Free from opioid side effects throughout the shift 03/05/2023 1549 by Ron Mancera RN Outcome: Progressing 03/05/2023 1549 by Ron Mancera RN Outcome: Progressing Goal: Free from acute confusion related to pain meds throughout the shift 03/05/2023 1549 by Ron Mancera RN Outcome: Progressing 03/05/2023 1549 by Ron Mancera RN Outcome: Progressing [facility] Work Phone: 1(320) 894-987101-19-2024 History and physical note* Desmond Tirado PA-C - 03/05/2023 2:49 PM EST [facility] Critical Care Medicine Date: 03/05/2023 Patient: Abbey Garcia Date of : 1990 Admit Date: 03/05/2023 Chief Complaint: abdominal pain History of Present Illness: Abbey Garcia is a 32 y.o. year old female patient with Past Medical History of asthma, hypothyroid, PUD, GERD, hypoglycemia, IBS, PCOS, depression, anxiety, headaches, s/p tan-en-y gastric bypass (2020), hysterectomy, appendectomy, cholecystectomy, ex lap, has been getting work-up by [facility] and Dr. Magaña for severe epigastric abdominal pain since 2019. She has been on TPN since 12/07 due to abdominal pain, nausea, and vomiting with PO intake. This morning, she was taken to the OR by Dr. Magaña for release of the median arcuate ligament via open laparotomy for suspected median arcuate ligament syndrome. Interval ICU Events: 03/05: Pt arrived to the ICU from PACU. She is extubated, on 2L NC, and alert and oriented with family at bedside. She reports abdominal pain around the incision site. She is also nauseous, vomiting, and SOB. Vascular team contacted for orders. NG to low intermittent suction. PICC line in place for TPN. Long and yoli post-op - likely remove tomorrow or when vascular surgery gives orders to remove. Medical History: Past Medical History: Diagnosis Date Anxiety Arthritis Asthma CPAP (continuous positive airway pressure) dependence Depression Dizziness GERD (gastroesophageal reflux disease) Hypothyroidism Irritable bowel syndrome with constipation Median arcuate ligament syndrome (CMS/HCC) PCOS (polycystic ovarian syndrome) PONV (postoperative nausea and vomiting) PUD (peptic ulcer disease) Shortness of breath Past Surgical History: Procedure Laterality Date APPENDECTOMY SECTION, CLASSIC x3 CHOLECYSTECTOMY CT ABDOMEN PELVIS ANGIOGRAM W AND/OR WO IV CONTRAST 12/14/2022 CT ABDOMEN PELVIS ANGIOGRAM W AND/OR WO IV CONTRAST 12/14/2022 ERCP W/ SPHINCTEROTOMY AND BALLOON DILATION GASTRIC BYPASS 01/2022 Medications Prior to Admission Medication Sig Dispense Refill Last Dose acetaminophen (Tylenol) 500 mg tablet Take 2 tablets (1,000 mg) by mouth every 6 hours if needed for moderate pain (4 - 6). Past Week albuterol 90 mcg/actuation inhaler Inhale 2 puffs every 4 hours if needed for wheezing or shortnessof breath. Past Week busPIRone (Buspar) 10 mg tablet Take 1 tablet (10 mg) by mouth 2 times a day. 03/05/2023 at 0430 chlorhexidine (Peridex) 0.12 % solution Use as directed. Do not start before March 04, 2023. 473 mL 0 03/05/2023 at 0430 Custom TPN Infuse 1,440 mL into a venous catheter continuously. START AT 5 PM UNTIL 5 AM Past Week Effer-K 25 mEq effervescent tablet Take 1 tablet (25 mEq) by mouth once daily. Past Week escitalopram (Lexapro) 20 mg tablet Take 1 tablet (20 mg) by mouth once daily. 03/05/2023 at 0430 famotidine (Pepcid) 40 mg tablet Take 1 tablet (40 mg) by mouth once daily. 03/04/2023 ferrous sulfate 325 (65 Fe) MG tablet Take 1 tablet by mouth once daily with breakfast. 03/04/2023 fluticasone propion-salmeteroL (Advair Diskus) 100-50 mcg/dose diskus inhaler Inhale 1 puff every 12 hours. Past Week hydrOXYzine HCL (Atarax) 25 mg tablet Take 1 tablet (25 mg) by mouth once daily as needed for anxiety. 03/04/2023 at 2000 levothyroxine (Synthroid, Levoxyl) 100 mcg tablet Take 1 tablet (100 mcg) by mouth once daily. 03/05/2023 at 0430 liothyronine (Cytomel) 5 mcg tablet Take 1 tablet (5 mcg) by mouth once daily. 03/05/2023 at 0430 magnesium, as gluconate, (Magonate) 27 mg magnesium (500 mg) tablet Take 500 mg by mouth once daily. Past Week mirtazapine (Remeron) 15 mg tablet Take 1 tablet (15 mg) by mouth once daily at bedtime. 03/04/2023 at 2130 polyethylene glycol (Glycolax, Miralax) 17 gram/dose powder Take 17 g by mouth once daily as needed. Past Week topiramate (Topamax) 100 mg tablet Take 0.5 tablets (50 mg) by mouth 2 times a day. HEADACHES 03/05/2023 at 0430 blood sugar diagnostic strip One touch Verio strips for One Touch Verio meter; test 4 times a day docusate sodium (Colace) 100 mg capsule Take 1 capsule (100 mg) by mouth 3 times a day as needed. estradiol (Estrace) 1 mg tablet Take 1 tablet (1 mg) by mouth once daily. Not Taking linaCLOtide (Linzess) 145 mcg capsule Take 1 capsule (145 mcg) by mouth once daily in the morning. Take before meals. 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 Codeine and Nsaids (non-steroidal anti-inflammatory drug) Social History Tobacco Use Smoking status: Never Smokeless tobacco: Never Substance Use Topics Alcohol use: Not Currently Drug use: Never Family History Problem Relation Name Age of Onset Diabetes Mother Jessica Artino Hypertension Mother Jessica Artino Cancer Maternal Grandfather Cedrick Kraus COPD Maternal Grandfather Cedrick Kraus Heart disease Maternal Grandfather Cedrick Kraus Kidney disease Maternal Grandfather Cedrick Kraus Hypertension Maternal Grandmother Grandpa Anesthesia problems Paternal Grandfather Elan Artino Arthritis Paternal Grandfather Elan Artino Hypertension Paternal [facility] Anesthesia related problems Paternal Grandfather [facility] COPD Paternal Grandmother Grandmother Diabetes Paternal Grandmother Grandmother Asthma Brother [facility] Medications: Current Facility-Administered Medications: acetaminophen (Tylenol) tablet 650 mg, 650 mg, oral, q4h PRN OR acetaminophen (Tylenol) oral liquid 650 mg, 650 mg, oral, q4h PRN OR acetaminophen (Tylenol) suppository 650 mg, 650 mg, rectal, q4h PRN, JAMA Lynn HYDROmorphone (Dilaudid) injection 0.5 mg, 0.5 mg, intravenous, q2h PRN, JAMA Lynn, 0.5 mg at 03/05/23 1440 ondansetron (Zofran) tablet 4 mg, 4 mg, oral, q8h PRN OR ondansetron (Zofran) injection 4 mg, 4mg, intravenous, q8h PRN, JAMA Lynn oxyCODONE-acetaminophen (Percocet) 5-325 mg per tablet 1 tablet, 1 tablet, oral, q4h PRN, JAMA Bob sennosides (Senokot) tablet 17.2 mg, 2 tablet, oral, BID, JAMA Lynn Review of Systems: Review of Systems Constitutional: Positive for diaphoresis and fatigue. Negative for activity change, appetite change, chills and fever. HENT: Negative for sneezing and sore throat. Respiratory: Positive for shortness of breath. Negative for cough, wheezing and stridor. Cardiovascular: Negative for chest pain, palpitations and leg swelling. Gastrointestinal: Positive for abdominal pain, nausea and vomiting. Negative for abdominal distention, constipation and diarrhea. Genitourinary: Negative for frequency and urgency. Musculoskeletal: Negative for arthralgias and myalgias. Skin: Negative for pallor and rash. Neurological: Negative for tremors, seizures, weakness, light-headedness, numbness and headaches. Psychiatric/Behavioral: Negative for confusion and hallucinations. The patient is not nervous/anxious. Physical Exam: Heart Rate: [64-96] Temp: [36 C (96.8 F)-36.5 C (97.7 F)] Resp: [11-18] BP: (123-140)/(54-82) Height: [167.6 cm (5' 5.98 )] Weight: [82.1 kg (181 lb)] SpO2: [97 %-100 %] Physical Exam Constitutional: Appearance: She is ill-appearing. HENT: Head: Normocephalic and atraumatic. Mouth/Throat: Mouth: Mucous membranes are moist. Eyes: Extraocular Movements: Extraocular movements intact. Conjunctiva/sclera: Conjunctivae normal. Pupils: Pupils are equal, round, and reactive to light. Cardiovascular: Rate and Rhythm: Normal rate and regular rhythm. Pulses: Normal pulses. Heart sounds: Normal heart sounds. Pulmonary: Effort: Pulmonary effort is normal. Breath sounds: Normal breath sounds. Abdominal: General: There is no distension. Palpations: Abdomen is soft. Tenderness: There is abdominal tenderness. Musculoskeletal: Cervical back: Neck supple. Right lower leg: No edema. Left lower leg: No edema. Skin: General: Skin is warm. Capillary Refill: Capillary refill takes less than 2 seconds. Neurological: General: No focal deficit present. Mental Status: She is alert and oriented to person, place, and time. Mental status is at baseline. Objective: I have reviewed all medications, laboratory results, and imaging pertinent for today's encounter. Intake/Output Summary (Last 24 hours) at 03/05/2023 1450 Last data filed at 03/05/2023 1351 Gross per 24 hour Intake 1300 ml Output 520 ml Net 780 ml Assessment/Plan: I am currently managing this critically ill patient for the following problems: Neuro/Psych/Pain Ctrl/Sedation: Post-op pain Anxiety Depression Headaches - Tylenol PRN for mild pain - Dilaudid, percocet for moderate to severe pain - Valium PRN for muscle spasms - Continue home lexapro, remeron, topamax, buspar - Continue home atarax PRN for anxiety - CAM ICU qshift - Sleep/wake hygiene Respiratory/ENT: Shortness of breath - Continue O2 via NC, wean as tolerated - Maintain SPO2 >92% - Continue home albuterol PRN - Continuous pulse ox monitoring Cardiovascular: No active concerns - Continuous cardiac monitoring per ICU protocol - Maintain MAPS >65 - EKGs PRN for ACS symptoms GI: Post-op nausea and vomiting GERD PUD IBS - NPO - await recommendations from vascular team when to restart TPN or other diet recommendations - NG to low-intermittent suction - Continue home pepcid - BR with miralax Renal/Volume Status (Intra & Extravascular): No active concerns - Maintain long catheter - Maintain urine output 0.5-1.0cc/kg/hr - Continuous IVF ordered by vascular team - Monitor I/O's - Replete electrolytes to maintain K >4.0 and Mg >2.0 - Daily BMP, Mg Endocrine Hypothyroidism Hypoglycemia - SSI q4hrs while NPO - Continue home synthroid, liothyronine - Monitor for hyper/hypoglycemia Infectious Disease: No active concerns - Ancef pre-op - Monitor SIRS criteria Heme/Onc: No active concerns - Continue home ferrous sulfate - Monitor for s/sx of anemia such as bleeding and bruising - Consider adding DVT proph tomorrow - Transfuse if Hgb <7.0 - Daily CBC OBGYN - S/p hysterectomy MSK: No active concerns - Strict bed rest 6hrs post-op - Padded pressure points - Ambulatory at baseline - PT/OT tomorrow Skin - ICU skin protocol Ethics/Code Status: Full code Internet Marketing Analyst: DVT Prophylaxis: none GI Prophylaxis: pepcid Bowel Regimen: miralax Diet: NPO CVC: none Yoli: yes - left radial Long: yes Restraints: no Dispo: ICU Critical Care Time: 60 minutes spent in preparing to see patient (I.e.labs,imaging, etc.), documentation, discussion plan of care with patient/family/caregiver, and/ or coordination of care with multidisciplinary team including the attending. Time does not include completion of procedure time. Desmond Tirado PA-C Pulmonology & Critical Care [facility] Work Phone: 1(879) 217-539201-19-2024 History and physical note* Desmond Tirado PA-C - 03/05/2023 2:49 PM EST [facility] Critical Care Medicine Date: 03/05/2023 Patient: Abbey Garcia Date of : 1990 Admit Date: 03/05/2023 Chief Complaint: abdominal pain History of Present Illness: Abbey Garcia is a 32 y.o. year old female patient with Past Medical History of asthma, hypothyroid, PUD, GERD, hypoglycemia, IBS, PCOS, depression, anxiety, headaches, s/p tan-en-y gastric bypass (2020), hysterectomy, appendectomy, cholecystectomy, ex lap, has been getting work-up by [facility] and Dr. Magaña for severe epigastric abdominal pain since 2019. She has been on TPN since 12/07 due to abdominal pain, nausea, and vomiting with PO intake. This morning, she was taken to the OR by Dr. Magaña for release of the median arcuate ligament via open laparotomy for suspected median arcuate ligament syndrome. Interval ICU Events: 03/05: Pt arrived to the ICU from PACU. She is extubated, on 2L NC, and alert and oriented with family at bedside. She reports abdominal pain around the incision site. She is also nauseous, vomiting, and SOB. Vascular team contacted for orders. NG to low intermittent suction. PICC line in place for TPN. Long and yoli post-op - likely remove tomorrow or when vascular surgery gives orders to remove. Medical History: Past Medical History: Diagnosis Date Anxiety Arthritis Asthma CPAP (continuous positive airway pressure) dependence Depression Dizziness GERD (gastroesophageal reflux disease) Hypothyroidism Irritable bowel syndrome with constipation Median arcuate ligament syndrome (CMS/HCC) PCOS (polycystic ovarian syndrome) PONV (postoperative nausea and vomiting) PUD (peptic ulcer disease) Shortness of breath Past Surgical History: Procedure Laterality Date APPENDECTOMY SECTION, CLASSIC x3 CHOLECYSTECTOMY CT ABDOMEN PELVIS ANGIOGRAM W AND/OR WO IV CONTRAST 12/14/2022 CT ABDOMEN PELVIS ANGIOGRAM W AND/OR WO IV CONTRAST 12/14/2022 ERCP W/ SPHINCTEROTOMY AND BALLOON DILATION GASTRIC BYPASS 01/2022 Medications Prior to Admission Medication Sig Dispense Refill Last Dose acetaminophen (Tylenol) 500 mg tablet Take 2 tablets (1,000 mg) by mouth every 6 hours if needed for moderate pain (4 - 6). Past Week albuterol 90 mcg/actuation inhaler Inhale 2 puffs every 4 hours if needed for wheezing or shortnessof breath. Past Week busPIRone (Buspar) 10 mg tablet Take 1 tablet (10 mg) by mouth 2 times a day. 03/05/2023 at 0430 chlorhexidine (Peridex) 0.12 % solution Use as directed. Do not start before March 04, 2023. 473 mL 0 03/05/2023 at 0430 Custom TPN Infuse 1,440 mL into a venous catheter continuously. START AT 5 PM UNTIL 5 AM Past Week Effer-K 25 mEq effervescent tablet Take 1 tablet (25 mEq) by mouth once daily. Past Week escitalopram (Lexapro) 20 mg tablet Take 1 tablet (20 mg) by mouth once daily. 03/05/2023 at 0430 famotidine (Pepcid) 40 mg tablet Take 1 tablet (40 mg) by mouth once daily. 03/04/2023 ferrous sulfate 325 (65 Fe) MG tablet Take 1 tablet by mouth once daily with breakfast. 03/04/2023 fluticasone propion-salmeteroL (Advair Diskus) 100-50 mcg/dose diskus inhaler Inhale 1 puff every 12 hours. Past Week hydrOXYzine HCL (Atarax) 25 mg tablet Take 1 tablet (25 mg) by mouth once daily as needed for anxiety. 03/04/2023 at 2000 levothyroxine (Synthroid, Levoxyl) 100 mcg tablet Take 1 tablet (100 mcg) by mouth once daily. 03/05/2023 at 0430 liothyronine (Cytomel) 5 mcg tablet Take 1 tablet (5 mcg) by mouth once daily. 03/05/2023 at 0430 magnesium, as gluconate, (Magonate) 27 mg magnesium (500 mg) tablet Take 500 mg by mouth once daily. Past Week mirtazapine (Remeron) 15 mg tablet Take 1 tablet (15 mg) by mouth once daily at bedtime. 03/04/2023 at 2130 polyethylene glycol (Glycolax, Miralax) 17 gram/dose powder Take 17 g by mouth once daily as needed. Past Week topiramate (Topamax) 100 mg tablet Take 0.5 tablets (50 mg) by mouth 2 times a day. HEADACHES 03/05/2023 at 0430 blood sugar diagnostic strip One touch Verio strips for One Touch Verio meter; test 4 times a day docusate sodium (Colace) 100 mg capsule Take 1 capsule (100 mg) by mouth 3 times a day as needed. estradiol (Estrace) 1 mg tablet Take 1 tablet (1 mg) by mouth once daily. Not Taking linaCLOtide (Linzess) 145 mcg capsule Take 1 capsule (145 mcg) by mouth once daily in the morning. Take before meals. 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 Codeine and Nsaids (non-steroidal anti-inflammatory drug) Social History Tobacco Use Smoking status: Never Smokeless tobacco: Never Substance Use Topics Alcohol use: Not Currently Drug use: Never Family History Problem Relation Name Age of Onset Diabetes Mother Jessica Artino Hypertension Mother Jessica Artino Cancer Maternal Grandfather Cedrick Kraus COPD Maternal Grandfather Cedrick Kraus Heart disease Maternal Grandfather Cedrick Kraus Kidney disease Maternal Grandfather Cedrick Kraus Hypertension Maternal Grandmother Grandpa Anesthesia problems Paternal Grandfather Elan Artino Arthritis Paternal Grandfather Elan Artino Hypertension Paternal Grandfather Elan Artino Anesthesia related problems Paternal Grandfather Elan Artino COPD Paternal Grandmother Grandmother Diabetes Paternal Grandmother Grandmother Asthma Brother [facility] Medications: Current Facility-Administered Medications: acetaminophen (Tylenol) tablet 650 mg, 650 mg, oral, q4h PRN OR acetaminophen (Tylenol) oral liquid 650 mg, 650 mg, oral, q4h PRN OR acetaminophen (Tylenol) suppository 650 mg, 650 mg, rectal, q4h PRN, Jason Foster, BRANCH SERVICE ASSOCIATE-BETH HYDROmorphone (Dilaudid) injection 0.5 mg, 0.5 mg, intravenous, q2h PRN, JAMA Lynn, 0.5 mg at 03/05/23 1440 ondansetron (Zofran) tablet 4 mg, 4 mg, oral, q8h PRN OR ondansetron (Zofran) injection 4 mg, 4mg, intravenous, q8h PRN, Jason Foster APRN-BETH oxyCODONE-acetaminophen (Percocet) 5-325 mg per tablet 1 tablet, 1 tablet, oral, q4h PRN, Jason Mckeon APRN-BETH sennosides (Senokot) tablet 17.2 mg, 2 tablet, oral, BID, JAMA Lynn Review of Systems: Review of Systems Constitutional: Positive for diaphoresis and fatigue. Negative for activity change, appetite change, chills and fever. HENT: Negative for sneezing and sore throat. Respiratory: Positive for shortness of breath. Negative for cough, wheezing and stridor. Cardiovascular: Negative for chest pain, palpitations and leg swelling. Gastrointestinal: Positive for abdominal pain, nausea and vomiting. Negative for abdominal distention, constipation and diarrhea. Genitourinary: Negative for frequency and urgency. Musculoskeletal: Negative for arthralgias and myalgias. Skin: Negative for pallor and rash. Neurological: Negative for tremors, seizures, weakness, light-headedness, numbness and headaches. Psychiatric/Behavioral: Negative for confusion and hallucinations. The patient is not nervous/anxious. Physical Exam: Heart Rate: [64-96] Temp: [36 C (96.8 F)-36.5 C (97.7 F)] Resp: [11-18] BP: (123-140)/(54-82) Height: [167.6 cm (5' 5.98 )] Weight: [82.1 kg (181 lb)] SpO2: [97 %-100 %] Physical Exam Constitutional: Appearance: She is ill-appearing. HENT: Head: Normocephalic and atraumatic. Mouth/Throat: Mouth: Mucous membranes are moist. Eyes: Extraocular Movements: Extraocular movements intact. Conjunctiva/sclera: Conjunctivae normal. Pupils: Pupils are equal, round, and reactive to light. Cardiovascular: Rate and Rhythm: Normal rate and regular rhythm. Pulses: Normal pulses. Heart sounds: Normal heart sounds. Pulmonary: Effort: Pulmonary effort is normal. Breath sounds: Normal breath sounds. Abdominal: General: There is no distension. Palpations: Abdomen is soft. Tenderness: There is abdominal tenderness. Musculoskeletal: Cervical back: Neck supple. Right lower leg: No edema. Left lower leg: No edema. Skin: General: Skin is warm. Capillary Refill: Capillary refill takes less than 2 seconds. Neurological: General: No focal deficit present. Mental Status: She is alert and oriented to person, place, and time. Mental status is at baseline. Objective: I have reviewed all medications, laboratory results, and imaging pertinent for today's encounter. Intake/Output Summary (Last 24 hours) at 03/05/2023 1450 Last data filed at 03/05/2023 1351 Gross per 24 hour Intake 1300 ml Output 520 ml Net 780 ml Assessment/Plan: I am currently managing this critically ill patient for the following problems: Neuro/Psych/Pain Ctrl/Sedation: Post-op pain Anxiety Depression Headaches - Tylenol PRN for mild pain - Dilaudid, percocet for moderate to severe pain - Valium PRN for muscle spasms - Continue home lexapro, remeron, topamax, buspar - Continue home atarax PRN for anxiety - CAM ICU qshift - Sleep/wake hygiene Respiratory/ENT: Shortness of breath - Continue O2 via NC, wean as tolerated - Maintain SPO2 >92% - Continue home albuterol PRN - Continuous pulse ox monitoring Cardiovascular: No active concerns - Continuous cardiac monitoring per ICU protocol - Maintain MAPS >65 - EKGs PRN for ACS symptoms GI: Post-op nausea and vomiting GERD PUD IBS - NPO - await recommendations from vascular team when to restart TPN or other diet recommendations - NG to low-intermittent suction - Continue home pepcid - BR with miralax Renal/Volume Status (Intra & Extravascular): No active concerns - Maintain long catheter - Maintain urine output 0.5-1.0cc/kg/hr - Continuous IVF ordered by vascular team - Monitor I/O's - Replete electrolytes to maintain K >4.0 and Mg >2.0 - Daily BMP, Mg Endocrine Hypothyroidism Hypoglycemia - SSI q4hrs while NPO - Continue home synthroid, liothyronine - Monitor for hyper/hypoglycemia Infectious Disease: No active concerns - Ancef pre-op - Monitor SIRS criteria Heme/Onc: No active concerns - Continue home ferrous sulfate - Monitor for s/sx of anemia such as bleeding and bruising - Consider adding DVT proph tomorrow - Transfuse if Hgb <7.0 - Daily CBC OBGYN - S/p hysterectomy MSK: No active concerns - Strict bed rest 6hrs post-op - Padded pressure points - Ambulatory at baseline - PT/OT tomorrow Skin - ICU skin protocol Ethics/Code Status: Full code Internet Marketing Analyst: DVT Prophylaxis: none GI Prophylaxis: pepcid Bowel Regimen: miralax Diet: NPO CVC: none Yoli: yes - left radial Long: yes Restraints: no Dispo: ICU Critical Care Time: 60 minutes spent in preparing to see patient (I.e.labs,imaging, etc.), documentation, discussion plan of care with patient/family/caregiver, and/ or coordination of care with multidisciplinary team including the attending. Time does not include completion of procedure time. Desmond Tirado PA-C Pulmonology & Critical Care [facility] * Sherry Magaña MD - 03/05/2023 7:46 AM EST Update: no change, positive response to CPB, for median arcuate ligament release 03/05/23 at 7:47 AM - Sherry Magaña MD Vascular Surgery Consultation, History, Physical Abbey Phipps is a 32 y.o. year old female patient. History: Patient is a 32-year-old woman who is suffering from chronic midepigastric pain with any oral intake. This began over a decade ago when she had some discomfort postprandially and underwent acholecystectomy. She was doing otherwise well until she had her 3 children. With her last child in 2019 which she delivered by as with her other earlier to, she was having severe epigastricabdominal pain with eating and this persisted postoperatively. 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 She was seen at [facility] by Dr. Kat and underwent an appendectomy when she arrived [...] She had a CT angiogram recently at [facility] but this is not available for [...] This is with Dr. Ramos over the [facility]. Currently any oral intake will result in nausea and vomiting. Medical History Past Medical History: Diagnosis Date Hypothyroidism Median arcuate ligament syndrome (CMS/HCC) Surgical History Past Surgical History: Procedure Laterality Date APPENDECTOMY [...] to review the CT angiogram done at [facility]. She is going to undergo a [...] get UGIS. Will discuss with Dr. Deacon Kat. documented in this [facility] Work Phone: [phone] 375-954501-19-2024 Nurse Note* Ron Mancera RN - 03/05/2023 2:01 PM EST Patient in the unit from PACU, unable to transfer in [facility]. No admit order yet. PACU Rns saw the warning note when trying to transfer the patient without admit orders. PACU staff will reach out to vascular doctor and TRUCK CAR AND BUS CLEANER for the order. [facility] Work Phone: [phone]) 930-767701-19-2024 Nurse Note* Ron Mancera RN - 03/05/2023 1:58 PM EST Informed MANAGER QUAL[employer] SYSTEMS to ask Dr. Magaña for admit orders prior to transfer. [facility] Work Phone: [phone]) 387-134601-19-2024 Note* Perioperative Nursing Note - Samantha Fields RN - 03/05/2023 1:52 PM EST Patient meets PACU discharge criteria. [facility]01-19-2024 Note* Perioperative Nursing Note - Samantha Fields RN - 03/05/2023 1:07 PM EST Patient to PACU bay 7 with left radial art line in place. Zeroed and waveforms appropriate. Clean/dry and intact. VSS. [facility] Work Phone: [phone] 298-849401-19-2024 Note* Op Note - Sherry Magaña MD - 03/05/2023 10:51 AM EST Images from the original note were not included. 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] Post-op Diagnosis * 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] Procedures Release Median Arcuate Ligament by LAPAROTOMY [id number] - NE UNLISTED PX ABDOMEN MUSCULOSKELETAL SYSTEM Surgeons * Sherry Magaña - Primary Resident/Fellow/Other Driver Salesman: Surgeon(s) and Role: Procedure Summary Anesthesia: General ASA: III Anesthesia Staff: Anesthesiologist: Serena George DO DIRECTOR OF ACCOUNTING: Maricruz L Pertl, BRANCH SERVICE ASSOCIATE-DIRECTOR OF ACCOUNTING Estimated Blood Loss: 2mL Intra-op Medications: * No intraprocedure medications in log * Anesthesia Record Intraprocedure I/O Totals Intake LR infusion 1300.00 mL Total Intake 1300 mL Output Urine 400 mL Est. Blood Loss 20 mL Total Output 420 mL Net Net Volume 880 mL Specimen: ID Type Source Tests Collected by Time 1 : Median Arcuate Ligament Tissue LIGAMENT SURGICAL PATHOLOGY EXAM Sherry Magaña MD 03/05/2023 1125 Staff: Substation Manager: Mary Mccabe RN; Natalie Young RN Scrub Person: Nadia Escobedo; Thu Ford Drains and/or Catheters: NG/OG/Feeding Tube NG - Jackson sump 16 Fr Right nostril (Active) Tube Status Low intermittent suction 03/05/23 1257 Site Assessment Clean;Dry;Intact 03/05/23 1257 Drainage Appearance None 03/05/23 1257 Urethral Catheter Non-latex 16 Fr. (Active) Site Assessment Clean;Skin intact 03/05/23 1256 Collection Container Standard drainage bag 03/05/23 1256 Securement Method Securing device (Describe) 03/05/23 1256 Tourniquet Times: Implants: Implants Type Name Action Serial No. Implant MEMBRANE, SEPRAFILM, 5 X 6 IN - [id number] Implanted Findings: heavily inflammed ligamentous tissues and nerve tissues removed off celiac axis and aorta Indications: Abbey Garcia is an 32 y.o. 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 Positive response to celiac plexus block. Laparotomy chosen as patent hadgastric sleeve/gastric bypass surgery The patient was seen in the preoperative area. The risks, benefits, complications, treatment options, non-operative alternatives, expected recovery and outcomes were discussed with the patient. The possibilities of reaction to medication, pulmonary aspiration, injury to surrounding structures, bleeding, recurrent infection, the need for additional procedures, failure to diagnose a condition, and creating a complication requiring transfusion or operation were discussed with the patient. The patient concurred with the proposed plan, giving informed consent. The site of surgery was properly noted/marked if necessary per policy. The patient has been actively warmed in preoperative area. Preopera tive antibiotics have been ordered and given within 1 hours of incision. Venous thrombosis prophylaxis are not indicated. Procedure Details: Supine position, chest abdomen and groins prepped and draped. Midline epigastric incision created from xiphoid to umbilicus. Abdomen entered and no significant adhesions of top was encountered. Therewas some adhesions laterally to the left side which I left alone. The falciform ligament and the left lobe of the liver was fully mobilized and the left lobe of the liver was retracted revealing the l sahra sac. The lesser sac was entered and the aorta was palpable underneath the diaphragm muscle. The right deborah of the diaphragm was taken down and the aorta revealed and dissection was then taken distally onto the celiac axis. Heavily inflamed tissues were encountered here and these had to be carefully dissected off of the vessels. Specimen of the median arcuate ligament was sent in 2 spots where matted neurologic tissue was intermixed with scar tissue and ligament. A combination of hook cautery and thunder beat cauterizer was used to expose the celiac axis down to its branching of hepatic and splenic arteries and the left gastric artery was preserved. The patient had an NG tube placed during the procedure and its tip was located in the proximal stomach sleeve. The wound was inspected for hemostasis. There was some bleeding from lymph nodes on top of the pancreas which I cauterized. Doppler examination of the celiac axis and common hepatic and splenic artery and left gastric arteries revealed normal flows in these vessels. Seprafilm was then applied to the dissected area and the liver was then brought over the dissected portion of the celiac axis. The abdomen was then closed with PDS to the fascia, Vicryl to the Avery's layer and running Monocryl to the skin. The skin was dressed with glue. Prior to full closure therectus sheath was infiltrated with local anesthesia consisting of lidocaine 1% with epinephrine mixed one-to-one with Marcaine half percent. The xiphoid was also infiltrated for pain control. Complications: None; patient tolerated the procedure well. Disposition: PACU - hemodynamically stable. Condition: stable Additional Details: Attending Attestation: I was present and scrubbed for the entire procedure. Sherry Magaña [facility] Work Phone: [phone] 410-116101-19-2024 History and physical note* Sherry Magaña MD - 03/05/2023 7:46 AM EST Update: no change, positive response to CPB, for median arcuate ligament release 03/05/23 at 7:47 AM - Sherry Magaña MD Vascular Surgery Consultation, History, Physical Abbey Phipps is a 32 y.o. year old female patient. History: Patient is a 32-year-old woman who is suffering from chronic midepigastric pain with any oral intake. This began over a decade ago when she had some discomfort postprandially and underwent acholecystectomy. She was doing otherwise well until she had her 3 children. With her last child in 2019 which she delivered by as with her other earlier to, she was having severe epigastricabdominal pain with eating and this persisted postoperatively. 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 She was seen at [facility] by Dr. Kat and underwent an appendectomy when she arrived [...] She had a CT angiogram recently at [facility] but this is not available for [...] This is with Dr. Ramos over the [facility]. Currently any oral intake will result in nausea and vomiting. Medical History Past Medical History: Diagnosis Date Hypothyroidism Median arcuate ligament syndrome (CMS/HCC) Surgical History Past Surgical History: Procedure Laterality Date APPENDECTOMY [...] to review the CT angiogram done at [facility]. She is going to undergo a [...] get UGIS. Will discuss with Dr. Deacon Kat. [facility] Work Phone: [phone]) 981-130512-14-2023 NoteHNO ID: [id number] Author: Rylee Thacker APRN.APPLICATION SECURITY ARCHITECT Service: ? Author Type: Nurse Practitioner Type: Progress Notes Filed: 01/28/2023 3:12 PM Note Text: [facility] [facility]12-04-2023 Miscellaneous Notes* Telephone Encounter - Laura Rodas RN - 01/18/2023 9:20 AM EST Call placed to [facility] to confirm received potassium orders for (K-2.9). No answer and left message for Thea olive picker from [facility]. (Do not feel Dr. Kat is managing TPN as well) * Telephone Encounter - Dorita Manning - 01/15/2023 11:47 AM EST [facility] called regarding potassium level. Level was 2.9. Patient already on max dose of potassium allowed with her TPN. They are asking for recommendations # [phone] documented in this encounterC[facility]11-27-2023 Miscellaneous Notes* Telephone Encounter - Joaquín Garza, DEE - 01/11/2023 3:40 PM EST The office did not attempt to reach the patient. * Telephone Encounter - Linda Rebollar RN - 01/11/2023 2:59 PM EST Pt calling States according to her phone it looks like she missed a call from office No message left per patient Asking if office called, if so ok to call her back [phone] Ok to leave a message documented in this encounterCleveland Clinic Union Hospital11-27-2023 NoteHNO ID: [id number] Author: Fern Jonas LPN Service: ? Author Type: LICENSED NURSE Type: Progress Notes Filed: 01/11/2023 10:42 AM Note Text: Please verify and cosign [facility]-27-2023 Miscellaneous Notes* Telephone Encounter - Fern Jonas LPN - 01/11/2023 10:49 AM EST Surg request placed, pt aware, instructions given verbally and via mychart, all questions and concerns addressed. documented in this encounterCleveland Clinic Union Hospital11-27-2023 History of Present illness Narrative* Fern Jonas LPN - 01/11/2023 10:37 AM EST Please verify and cosign Fern Jonas LPN documented in this encounterCleveland Clinic Union Hospital11-24-2023 [facility]11-24-2023 History of Present illness Narrative* Vic Ramos MD - 01/08/2023 3:39 PM EST VIRTUAL VISIT Referring Or Consulting Physician: Dr. Magaña CHIEF COMPLAINT: pain in my upper abdomen HPI: This is a 32 year old female here for evaluation of pain that began many years ago following no particular inciting event. At this point, the pain is located in the areas detailed above (see cc). 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 pantoprazole (PROTONIX) 40 mg grps Take 40 [...] which included preparing to see the patient, wkgg-wm-jhyg patient care, completing clinical documentation, obtaining and/or reviewing separately obtained history, counseling and educating the patient/family/caregiver, ordering medications, stevan ts, or procedures, communicating with other HCPs (not separately reported), independently interpreting results (not separately reported), communicating results to the patient/family/caregiver, and care coordination (not separately reported). Vic Ramos MD January 08, 2023 documented in this encounterCleveland Clinic Union Hospital11-22-2023 Miscellaneous Notes* Telephone Encounter - Clarence Hargrove LPN - 01/06/2023 4:05 PM EST Spoke with patient Virtual visit for upper abdominal pain Diagnostic work up through [facility] * Telephone Encounter - Marialuisa Chris - 01/06/2023 3:55 PM EST Patient states she has digital records that she will bring to appointment on 01/08/23. Cannot bring them in prior to the appointment as we are closed tomorrow. * Telephone Encounter - Clarence Hargrove LPN - 01/06/2023 3:42 PM EST Called patient no answer left vm to call office regarding reason for visit (No diagnosis) To send medical records if possible prior to visit related to pain for visit. documented in this encounterCleveland Clinic Union Hospital11-16-2023 Hospital Discharge instructions Patient Education 12/31/2022 16:02:59 Diarrhea, Adult [...] oral rehydration solution (ORS). This is an zgak-gbd-mamnxlm medicine that helps return your body to its normal balance of nutrients and water. It is found at pharmacies and retail stores. Drink plenty of fluids, such as water, ice chips, diluted fruit juice, and low- calorie sports drinks. You can drink milk also, if desired. Avoid drinking fluids that contain a lot of sugar or caffeine, such as energy drinks, sports drinks, and soda. Eat bland, bjth-up-trikow foods in small amounts as you are able. These foods include bananas, applesauce, rice, lean meats, toast, and crackers. Avoid alcohol. Avoid spicy or fatty foods. Medicines Take lbvs-aou-udzqilx and prescription medicines only as told by your health care provider. If you were prescribed an antibiotic medicine, take it as told by your health care provider. Do notstop using the antibiotic even if you start to feel better. General instructions Wash your hands often using soap and water. If soap and water are not available, use a hand coil winding machines set up mechanic. Others in the household should wash [...] If soap and water are not available, usehand coil winding machines set up mechanic. Contact a health care provider if your diarrhea gets worse or you have new symptoms. Get help right away if you have signs of dehydration. This information is not intended to replace advice given to you by your health care provider. Make sure you discuss any questions you have with your health care provider. Document Revised: 08/13/2021 Document Reviewed: 08/13/2021 [employer] Patient Education 2022 [employer]. 12/31/2022 16:02:59 Abdominal Pain, Adult Abdominal Pain, [...] Follow these instructions at home: Medicines Take yuvn-drh-csxpioc and prescription medicines only as told by [...] Watch your condition for any changes. Take qspd-nys-kjujdrs and prescription medicines only as told by [...] provider. Document Revised: 03/22/2020 Document Reviewed: 06/12/2019 [employer] Patient Education 2022 [employer]. Follow Up Care 12/31/2022 12:31:54 With:Jaquan Morrow Address: [address] [place] [address] Business (1) When:01/03/2023 15:35:16 [facility]11-16-2023 Evaluation + Plan noteExtracted from: Title:ED Note Author:Lonnie Rios PA-C te:12/31/22 [...] Date:01/20/2023 10:00:00 AM Scheduled Provider:Rajni Rouse MD Location:[facility] Appointment Type:URO Office Visit Future Scheduled Tests Radiology* US Renal 06/10/22 [facility]11-13-2023 Miscellaneous Notes* Telephone Encounter - Shanique Manning HUC - 12/28/2022 4:05 PM EST BMI Incoming Patient Nursing Line Call Summary: Situation/Concerns Melisa Potter's called [phone] called and said Abbey needs a RTWletter [...] Telephone Encounter. CHRIS Katz documented in this encounterCleveland Clinic Union Hospital10-30-2023 [facility] History of Present illness Narrative* Deacon [...] visit. Either the patient or their legal kiosk sales representative has been informed of the risks and [...] opinion. Deacon Kat MD documented in this encounterCleveland Clinic [facility] Hospital10-25-2023 [facility]Mer[facility]-20[facility]-2023 [facility]-24-2023 [facility]-2023 Note [facility]10-[facility]-2023 NoteMer[facility]10-20-2023 History and physical note* Agustin Zamorano [...] was started since her last admission to [facility] last week. Patient's weight has been fluctuating [...] 12/16/2022 Time: 2:19 PM documented in this encounterCleveland Clinic Union Hospital10-19-2023 Miscellaneous Notes* Telephone Encounter - Oliva Dobbs RN - 12/03/2022 2:00 AM EDT BMI SPECIALTY CARE COORDINATION TELEPHONE ENCOUNTER Patient hospitalized 11/27 unsure if d/c. Referred to Dr Kat who referred to Dr Zamorano [facility] of hypothyroidism, HTN, gastric ulcer, GERD, asthma, [...] for MALS- plans for surgical intervention at [facility] Consult scheduled with Dr Zamorano on 12/04. Will r/s if pt still in house. 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 referral to GI specialist , on TPN documented in this encounterCleveland Clinic [facility] Hospital10-17-2023 Miscellaneous Notes* Telephone Encounter - Li Kimball RN - 12/01/2022 2:32 PM EDT Patient remains admitted at [facility]. Patient received a PICC line for home TPN to bridge her to surgery. Patient is scheduled with Dr. Zamorano for virtual consult 12/04/2022. Patient with increasednausea with TPN, [facility] continues to adjust medications. Li Kimball RN documented in this encounterCleveland Clinic Union Hospital10-14-2023 NoteHNO ID: [id number] Author: Note, Interface Service: ? Author Type: ? Type: Progress Notes Filed: 11/28/2022 5:10 AM Note Text: Epic Scheduled Downtime: 11/28/2022 1:00:00 AM to 11/28/2022 1:28:00 [facility]10-14-2023 NoteHNO ID: [id number] Author: Note, Interface Service: ? Author Type: ? Type: Progress Notes Filed: 11/28/2022 3:45 AM Note Text: Epic Scheduled Downtime: 11/28/2022 1:00:00 AM to 11/28/2022 1:28:00 [id number] NoteHNO ID: [id number] Author: Note, Interface Service: ? Author Type: ? Type: Progress Notes Filed: 11/28/2022 3:27 AM Note Text: Epic Scheduled Downtime: 11/28/2022 1:00:00 AM to 11/28/2022 1:28:00 [facility]10-12-2023 NoteHNO ID: [id number] Author: Jennifer Gillespie RN Service: ? Author Type: Registered Nurse Type: Progress Notes Filed: 11/26/2022 10:37 AM Note Text: Patient in office for hydration infusion. Patient tolerated infusion well. [facility] HospitalXvuwsusv89-39-6047 Miscellaneous Notes* Telephone Encounter - Kristin Hu RN - 11/25/2022 12:55 PM EDT Left message confirming pts appt tomorrow in the chronic care clinic for hydration. documented in this encounterCleveland Clinic [facility] Hospital10-09-2023 Miscellaneous Notes* Telephone Encounter - Li Kimball RN - 11/23/2022 2:26 PM EDT Mesenteric ultrasound scheduled [facility]26[facility]20[facility] at [facility], patient notified. Li Kimball RN * Telephone Encounter - Li Kimball RN - 11/23/2022 12:31 PM EDT I spoke to the patient's and advised that I have a request out to [place] for IV hydration and Dr. Kat has [...] states the hospital ids going to discharge [place] and states she is unable to eat or drink and continues to have pain. Li Kimball RN documented in this encounterCleveland Clinic Union Hospital10-08-2023 [facility] 11-22-2022 NoteLayton HospitalPllmhtvh33-74-5038 NoteHNO ID: [id number] Author: Christy Oliveros MD Service: General Surgery [...] Resident For team paging 6AM-6PM during weekdays: [phone] for [place] Team For team paging after 6PM or on weekend / holidays: [phone] for General Surgery Subjective: - No acute [...] APTT 27.2 -- INR 1.0 1.0 Cardiac EnzymesBaystate Noble HospitalUclbukjg99-34-3016 NoteHNO ID: [id number] Author: Raegan Mckay RN Service: Care Management Author Type: Registered Nurse Type: Care Mgt Initial Assessment Filed: 11/18/2022 11:07 AM Note Text: CARE MANAGEMENT: ASSESSMENT AND DISCHARGE PLAN SERVICE DATE: November 18, 2022 SERVICE TIME: 11:05am PCP: Jaquan Morrow Primary Contact: Extended Emergency Contact Information Primary Emergency Contact: Melisa Garcia Address: [address] [place] Relation: Spouse Admission Status: Inpatient Insurance Provider: [facility] Discharge Planning requested by: Per Department Practice Potential Transition Plans No Services Indicated Advance Directives Current Advance Directive: Health Care Power of Survey Instrument Operator In Chart: Yes Up To Date and [...] General wellness, Be able to go home [place] of Choice Explained: [place] of Choice Given: No Reason Not Given: [...] oddi dyskinesia on 11/11/22. 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 No skilled needs noted. CM will follow as needed. SIGNATURE: Raegan Mckay RN PATIENT NAME: Abbey Garcia DATE: November 18, 2022 TIME: 11:04 AM CONTACT #: [phone] HospitalAlntztwr45-89-8667 NoteHNO ID: [id number] Author: Rajni Walsh RN Service: ? Author Type: Registered Nurse Type: Nursing Progress Note Filed: 11/18/2022 10:13 AM Note Text: Other: C/o ultram not working.Will see about another order.Urine was sent to lab.Will reassess.[facility] HospitalBphnhpsj37-35-8864 NoteHNO ID: [id number] Author: Christy Oliveros MD Service: General Surgery [...] Resident For team paging 6AM-6PM during weekdays: [phone] for [facility] Team For team paging after 6PM or on weekend / holidays: [phone] for General Surgery Subjective: - No acute [...] APTT 27.2 -- INR 1.0 1.0 Cardiac EnzymesBaystate Noble HospitalXbjrxomk89-23-3737 Miscellaneous Notes* Telephone Encounter - Li Kimball RN - 11/16/2022 11:51 AM EDT Patient called and states she continues to have abdominal pain and is asking for a Tramadol prescription. Patient also asking for IV fluids as her fluid intake is still not normal. Li Kimball RN documented in this encounterCleveland Clinic Union Hospital09-29-2023 NoteHNO ID: [id number] Author: Pablo Lebron PSYD Service: ? Author Type: Psychologist Type: Progress Notes Filed: 11/13/2022 8:36 AM Note Text: Assessment was conducted over the phone due to pt's technical difficulties. Patient is a resident of [place], and completed the assessment over the phone in [place]. Psychologist is licensed and stationed in [place]. Informed consent was discussed and verbal assent [...] Focused Psychotherapy, Supportive Therapy PROGRESS TO DATE: Intermediate Progress: Stable Short Term Condition: Stable GOALS/OBJECTIVES/INTERVENTIONS: To identify and implement tools for effectively managing symptoms of anxiety, stress, and low mood. Approximately 40 minutes were spent with the patient doing therapy. [facility]bronFree [facility] for [facility]09-28-2023 NoteHNO ID: [id number] Author: Saad Her Service: ? Author Type: ? Type: Plan of Care Filed: 11/13/2022 10:06 AM Note Text: PHARMACY BEDSIDE DELIVERY SERVICE Patient Name: Abbey Garcia The marked outpatient medications were filled at [facility] pharmacy and picked up at the pharmacy [...] 50 mg tablet Commonly known as: MIKE Saad Her PAGER: [phone] November 13, 2022 10:05 [facility]09-28-2023 NoteHNO ID: [id number] Author: Pallavi Harris MD Service: General Surgery [...] Cardiac Enzymes Intake and Output: Date 11/11/22 07 - 11/12/22 0659 11/12/22 07 - 11/13/22 0659 Shift 2902-0141 0367-1349 0272-2809 24 Hour Total 0866-6884 2199-7999 8084-6364 24 Hour Total INTAKE PO 480 480 PO 480 480 IV 1768 457 7683 Volume (mL) (metroNIDAZOLE iv piggyback 500 mg in NaCl (iso-osmotic) 100 mL (FLAGYL)) 100 100 Volume (mL) (magnesium sulfate 2 g in NaCl 0.9% 100 mL) 100 100 Volume (mL) (lactated ringers iv infusion) 1500 1500 Volume (mL) (lactated ringers iv infusion) 406 406 Shift Total 3154 467 7394 OUTPUT Urine 600 600 Void (ml) 600 [...] -Heme: Monitor h/h -End (more content not included)...[facility] HospitalXbmzyzif16-33-3768 NoteHNO ID: [id number] Author: Diana Mott APRN.CRNA Service: ? Author Type: Nurse Primer Waterproofing Machine Adjuster Type: Anesthesia Procedure Notes Filed: 11/11/2022 3:25 PM Note Text: ANESTHESIOLOGY PROCEDURE NOTE Airway General Information Procedure Start Time/Medication Administration: 11/11/2022 3:16 PM Patient location during procedure: OR Timeout Performed Pre-procedure: timeout performed Consent Obtained: Yes Patient identity confirmed: arm band Staffing DIRECTOR OF ACCOUNTING: Diana Mott APRN.CRNA Indications and Patient Condition Indications for airway management: anesthesia Preoxygenated: yes anesthesia circuit Method: sleep Difficult Mask: No Final Airway Details Final airway type: endotracheal airway Final Endotracheal Airway: ETT Cuffed: yes Successful intubation technique: video laryngoscopy Devices used: [email or web address] Endotracheal tube insertion site: oral Blade size: #3 ETT size (mm): 7.0 Measured from: lips Measurement (cm): 21 Placement verified by: capnometry Cormack-Lehane Classification: grade IIa - partial view of glottis Number of attempts at approach: 1 Airway not difficult SIGNATURE: Diana Mott APRN.DIRECTOR OF ACCOUNTING PATIENT NAME: Abbey Garcia DATE: November 11, 2022 TIME: 3:24 PM CSN: [id number] History of Past illness Narrative* Problem Noted [...] of this encounter (statuses as of 11/17/2022) [facility] of Past illness Narrative* Problem [...] of this encounter (statuses as of 11/18/2022) [facility] of Past illness Narrative* Problem [...] of this encounter (statuses as of 11/21/2022) [facility] of Past illness Narrative* Problem [...] of this encounter (statuses as of 11/24/2022) [facility] of Past illness Narrative* Problem [...] of this encounter (statuses as of 11/25/2022) [facility] of Past illness Narrative* Problem [...] of this encounter (statuses as of 11/27/2022) [facility] of Past illness Narrative* Problem [...] of this encounter (statuses as of 12/02/2022) [facility] of Past illness Narrative* Problem [...] of this encounter (statuses as of 12/03/2022) [facility] of Past illness Narrative* Problem [...] of this encounter (statuses as of 12/15/2022) [facility] of Past illness Narrative* Problem [...] of this encounter (statuses as of 12/15/2022) [facility] of Past illness Narrative* Problem [...] of this encounter (statuses as of 12/17/2022) [facility] of Past illness Narrative* Problem [...] of this encounter (statuses as of 12/31/2022) [facility] of Past illness Narrative* Problem [...] of this encounter (statuses as of 01/06/2023) [facility] of Past illness Narrative* Problem [...] of this encounter (statuses as of 01/08/2023) [facility] of Past illness Narrative* Problem [...] of this encounter (statuses as of 01/11/2023) [facility] of Past illness Narrative* Problem [...] of this encounter (statuses as of 01/11/2023) [facility] of Past illness Narrative* Problem [...] of this encounter (statuses as of 01/12/2023) [facility] of Past illness Narrative* Problem [...] of this encounter (statuses as of 01/18/2023) [facility] of [facility] Narrative* Problem [...] of this encounter (statuses as of 01/18/2023) [facility] of [facility] Narrative* Problem [...] as of this encounter (statuses as of 04/07/2023) [facility] Narrative* Problem [...] as of this encounter (statuses as of 05/05/2023) [facility] of [facility] Narrative* Problem [...] as of this encounter (statuses as of 05/07/2023) [facility] Narrative* Problem [...] as of this encounter (statuses as of 05/10/2023) [facility] Narrative* Problem [...] as of this encounter (statuses as of 05/18/2023) [facility] Narrative* Problem [...] as of this encounter (statuses as of 05/27/2023) [facility] Narrative* Problem [...] as of this encounter (statuses as of 05/28/2023) [facility] Narrative* Problem [...] as of this encounter (statuses as of 05/28/2023) [facility] Narrative* Problem [...] as of this encounter (statuses as of 05/30/2023) [facility] of Past [facility] Narrative* Problem [...] as of this encounter (statuses as of 06/02/2023) [facility]Mer[facility]-2023 Miscellaneous Notes* Telephone Encounter - Li Kimball RN - 11/09/2022 4:40 PM EDT Patient notified that surgery has to be moved to Wednesday as gastroenterology is no longer available to assist. I encouraged the patient to come to [place] ED if pain worsens or she develops an newor other concerning symptoms. Patient stated understanding and had no further questions. Li Kimball RN documented in this encounterCleveland Clinic Union Hospital09-23-2023 [facility] 11-06-2022 Miscellaneous Notes* Telephone Encounter - Li Kimball [...] within 10-15 minutes. Patient remains admitted to [facility] and is scheduled for a HIDA scan [...] questions. Li Kimball RN documented in this encounterCleveland Clinic Union Hospital09-22-2023 [facility] 11-06-2022 [facility]Kltaikpq23-80-2733 History of Present illness Narrative* Agustin Sheets [...] radiation safety can be found usingthis link: [email or web address] SIGNATURE: RT Oj(R) PATIENT NAME: Abbey Garcia DATE: November 06, 2022 TIME: 10:54 AM PAGER/CONTACT #: documented in this encounterCleveland Clinic Union Hospital09-20-2023 [facility]Mer[facility]09-20-2023 History of Present illness Narrative* Deacon [...] healthy appearing mucosa. This was traversed. The pwgtg-kp-tezweal limb was characterized by healthy appearing mucosa. [...] YELLOW YELLOW APPEARANCE, URINE CLEAR CLEAR Specific [place], Urine 1.010 - 1.025 1.020 PH URINE [...] Moderate Deacon Kat MD documented in this encounterCleveland Clinic Union Hospital09-18-2023 Miscellaneous Notes* Telephone Encounter - Haroon [...] on Haroon Seay APRN.CNP documented in this encounterCleveland Clinic Union Hospital09-18-2023 Emergency department Note * Dayanara Montaan RN - 11/02/2022 11:55 AM EDT Pt states that her pain is getting worse along with her nausea [facility]09-18-2023 Emergency department Note* Dayanara Montana RN - [...] CT scans showing possible kidney stones near [facility], here today because hands turned brown) JANINE Garcia is a 32 y.o. female who presents with abdominal pain. Patient has had multiple weeks of abdominal pain. She has had multiple ER visits in [facility]. She had multiple CT scans with [...] Walker MD 11/02/22 1325 documented in this encounterOhiohealth [facility]09-18-2023 Emergency department Note* Dayanara Montana RN - 11/02/2022 11:44 AM EDT Pt requesting to use the restroom and wants assistance. Stand by assist given pt walk with a slow steady gait at this time without difficulty [facility]09-18-2023 Physician Emergency department Note* Dimitri Walker MD - 11/02/2022 10:55 AM EDT DEPARTMENT OF EMERGENCY MEDICINE CHIEF COMPLAINT Abdominal Pain (Reports has been seen a couple of times with CT scans showing possible kidney stones near [facility], here today because hands turned brown) JANINE Garcia is a 32 y.o. female who presents with abdominal pain. Patient has had multiple weeks of abdominal pain. She has had multiple ER visits in [facility]. She had multiple CT scans with [...] bypass surgeon. Dimitri Walker MD 11/02/22 1325 [facility]09-16-2023 Hospital Discharge instructions* Discharge Instructions* Jalyn Suresh [...] sent through Care Everywhere. * Back: Strain ([place]) documented in this encounterB[facility] [facility] 10-26-2022 [facility] History of Past illness Narrative* Problem Noted [...] of this encounter (statuses as of 10/28/2022) [facility]09-10-2023 History of Past illness Narrative* Problem [...] of this encounter (statuses as of 11/03/2022) [facility] History of Past illness Narrative* Problem [...] of this encounter (statuses as of 11/03/2022) [facility]09[facility]10[facility] History of Past illness Narrative* Problem [...] of this encounter (statuses as of 11/03/2022) [facility] History of Past illness Narrative* Problem [...] of this encounter (statuses as of 11/03/2022) [facility] History of Past illness Narrative* Problem [...] of this encounter (statuses as of 11/04/2022) [facility] History of Past illness Narrative* Problem [...] of this encounter (statuses as of 11/04/2022) [facility] History of Past illness Narrative* Problem [...] of this encounter (statuses as of 11/05/2022) [facility] History of Past illness Narrative* Problem [...] of this encounter (statuses as of 11/05/2022) [facility] History of Past illness Narrative* Problem [...] of this encounter (statuses as of 11/06/2022) [facility] History of Past illness Narrative* Problem [...] of this encounter (statuses as of 11/06/2022) [facility] History of Past illness Narrative* Problem [...] of this encounter (statuses as of 11/10/2022) [facility]09-10-2023 [id number] Miscellaneous Notes* Telephone Encounter - Li Kimball [...] nausea vomiting and pain return call to [phone] documented in this encounterCleveland [facility]09[facility] Hospital Discharge instructions Patient Education 10/20/2022 [...] medicines. These include steroids, antibiotics, and some grtb-lcw-mhhwetz medicines, such as aspirin or ibuprofen. Having [...] Follow these instructions at home: Medicines Take zolk-buc-fkiktdm and prescription medicines only as told by [...] provider. Document Revised: 06/07/2021 Document Reviewed: 06/07/2021 [employer] Patient Education 2022 [employer]. 10/20/2022 12:40:07 Abdominal Pain, Adult Abdominal Pain, [...] Follow these instructions at home: Medicines Take abcr-cxt-olorbzg and prescription medicines only as told by [...] Watch your condition for any changes. Take sibi-yhg-evjbnxf and prescription medicines only as told by [...] provider. Document Revised: 03/22/2020 Document Reviewed: 06/12/2019 [employer] Patient Education 2022 [employer]. Follow Up Care 10/20/2022 08:06:19 With:Jaquan Morrow Address: [address] [place] [address]- Business (1) When:10/23/2022 12:06:27 [facility]09-04-2023 Evaluation + Plan noteExtracted from: Title:ED Note Author:Earnest Jett DO Date:10/19 Abdominal pain (R10.9: Unspe cified abdominal pain) Ordered: acetaminophen-oxycodone, 1 tab(s), Oral, q6hr for 3 day(s), 10 tab(s), Refill(s) 0, [id number], 168, cm, 10/19/22 8:44:00 EDT, Height/Length Dosing, [...] nausea, # 10 tab(s), Refills(s) 0, [id number], cm, 10/19/22 8:44:00 EDT, Height/Length [...] QID, # 280 mL, Refills(s) 0, Pharmacy: [id number], 168, cm, 10/19/22 8:44:00 EDT, Height/Length Dosing, 85.6, kg, 10/19/22 8:44:00 EDT, Weight Dosing Automated Diff Basic Metabolic Panel CBC w/ Auto Diff eGFR Extra Blue Tube Extra SST Tube Hepatic Function Panel Lipase Level TSH With T4fr Reflex UA With Cult Reflex XR Chest 2 Views Future Appointments Appointment Date:11/20/2022 02:40:00 PM Scheduled Provider: Location:[facility] Appointment Type: Lab Draw Appointment Date:01/20/2023 10:00:00 AM Scheduled Provider:Rajni Rouse MD Location:[facility] Appointment Type:URO Office Visit Future Scheduled Tests Laboratory* T3 Free 10/07/22 * Thyroid Stimulating Hormone 10/07/22 * Free T4 10/07/22 Radiology* US Renal 06/10/22 [facility]09-04-2023 Hospital Discharge instructions Follow Up Care 10/19/2022 08:31:02 With:Jon Rivera Address: [address] [place] [address], [facility] [address] [address]- [phone] Business (1) When:10/22/2022 13:40:06 With:Your GI physician Address:Unknown When:10/22/2022 13:40:01 With:Jaquan Morrow Address: [address] [place] [address]- Business (1) When:Within 3 Day(s) [facility]08-31-2023 Miscellaneous Notes* Telephone Encounter - Ria Roberts [...] and advise. Grecia Wallace documented in this encounterCleveland [facility]08-[facility]-2023 NoteHNO ID: [id number] Author: Pablo Lebron PSYD Service: ? Author Type: Psychologist Type: Progress Notes Filed: 10/05/2022 3:51 PM Note Text: Assessment was conducted over the phone due to pt's technical difficulties. Patient is a resident of [place], and completed the assessment over the phone in [place]. Psychologist is licensed and stationed in [place]. Informed consent was discussed and verbal assent [...] Focused Psychotherapy, Supportive Therapy PROGRESS TO DATE: Bailing Machine Operator Progress: Stable Short Term Condition: Stable GOALS/OBJECTIVES/INTERVENTIONS: To identify and implement tools for effectively managing symptoms of anxiety, stress, and low mood. Approximately 45 minutes were spent with the patient doing therapy. Pablo Du Lebron [facility]08-21-2023 History of Present illness Narrative* Pablo Lebron, ROSALBA - 10/05/2022 3:07 PM EDT Assessment was conducted over the phone due to pt's technical difficulties. Patient is a resident of [place], and completed the assessment over the phone in [place]. Psychologist is licensed and stationed in [place]. Informed consent was discussed and verbal assent [...] Focused Psychotherapy, Supportive Therapy PROGRESS TO DATE: Intermediate Progress: Stable Short Term Condition: Stable GOALS/OBJECTIVES/INTERVENTIONS: To identify and implement tools for effectively managing symptoms of anxiety, stress, and low mood. Approximately 45 minutes were spent with the patient doing therapy. Pablo Lebron PsyD documented in this encounterC[facility]08-14-2023 NoteMer[facility]08-14-2023 Instructions* Patient Instructions* Xiomara Martinez RD [...] Fusion multivitamin soft chews and calcium citrate 8390-0426 mg/day(3 soft chews), and continue Probiotic drink [...] should last 30 minutes. 7. Aim for 6274-7616 calories and 75-100 gm carbs per day Nutrition Monitoring & Evaluation: Maintain BMI < 30 Need for Follow up: 4 months, for conversion anniversary - [phone] documented in this encounter[address]14-2023 History of Present illness Narrative* Xiomara Martinez, RD - 09/28/2022 8:00 AM EDT [facility] Nutrition Therapy: Virtual Consult - Re-assessment I have communicated my name and active licensure. The patient s identity and physical location wereverified at the time of this visit. Either the patient or their legal kiosk sales representative has been informed of the risks and [...] Fusion multivitamin soft chews and calcium citrate 4975-5756 mg/day(3 soft chews), and continue Probiotic drink [...] should last 30 minutes. 7. Aim for 3189-5410 calories and 75-100 gm carbs per day Nutrition Monitoring & Evaluation: Maintain BMI < 30 Need for Follow up: 4 months, for conversion anniversary - [phone] PROGRESS: Interval History: Patient presents for follow [...] the day. Recently started tracking intake on Aveksa bre. Consistent, but likely insufficient protein intake. Following Phase 5 diet currently. 1783-3210 calories/day - meeting low-end needs 60-70 gm protein intake/day - falling below recommendations 60-90 oz fluid intake/day - meeting needs Taking all vitamin/minerals, however insufficient calcium citrate. Labs reviewed, unremarkable. Resting Metabolic Rate:1557 Energy needs for weight loss 0274-6719 (15-20 carina/kg current weight) Protein needs: 85 [...] Fusion One a Day multivitamin capsule PLUS 3007-8429 mg calcium citrate 5. Exercise: strive for [...] Garcia DATE: 09/28/2022 TIME: 7:48 AM PAGER: [phone] documented in this encounterCleveland Clinic [facility] Hospital08-08-2023 NoteMer[facility]08-07-2023 NoteHNO ID: [id number] Author: Pablo Lebron PSYD Service: ? Author Type: Psychologist Type: Progress Notes Filed: 09/22/2022 12:47 PM Note Text: Assessment was conducted over the phone due to pt's technical difficulties. Patient is a resident of [place], and completed the assessment over the phone in [place]. Psychologist is licensed and stationed in [place]. Informed consent was discussed and verbal assent [...] importance of working outside house; balance). 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 Animosity from and mom (not enough time at home). Hurt by mom's words wants to communicate, she internalizes. Marital therapy? Appreciative of family help with kids. Sources of support (brother and hixynt-je-fwu), close friend High anxiety and panic attacks [...] Focused Psychotherapy, Supportive Therapy PROGRESS TO DATE: Intermediate Progress: Stable Short Term Condition: Stable GOALS/OBJECTIVES/INTERVENTIONS: To identify and implement tools for effectively managing symptoms of anxiety, stress, and low mood. Approximately 45 minutes were spent with the patient doing therapy. [facility] History of Present illness Narrative* Pablo Lebron, [facility] - 09/21/2022 2:04 PM EDT Assessment was conducted over the phone due to pt's technical difficulties. Patient is a resident of [place], and completed the assessment over the phone in [place]. Psychologist is licensed and stationed in [place]. Informed consent was discussed and verbal assent [...] importance of working outside house; balance). 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 Animosity from and mom (not enough time at home). Hurt by mom's words wants to communicate, she internalizes. Marital therapy? Appreciative of family help with kids. 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 Approximately 45 minutes were spent with the patient doing therapy. Pablo Lebron PsyD documented in this encounterCleveland Clinic [facility]08-04-2023 NoteMer[facility]08-04-2023 History of Present illness Narrative* Breanna Stern APRN.APPLICATION SECURITY ARCHITECT - 09/18/2022 3:14 PM EDT BMI SURGERY [...] Total weight loss: 11.3 kg (25 lb) [place] weight: 70.3 kg (154 lb 14.5 oz) Excess weight: 24.5 kg (54 lb 1.5 oz) % of excess body weight lost: 11.3 kg (25 lb) (46.22% of excess weight loss) COMPLICATIONS SINCE LAST VISIT?: NONE EGD 06/23/22 Findings: The examined esophagus was normal. 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 The gastrojejunal anastomosis was characterized by healthy appearing mucosa. This was traversed. The rawmh-mf-mtciyod limb was characterized by healthy appearing mucosa. [...] 40 f bougie). This was traversed. The tptwb-lw-ebogyui limb was characterized by healthy appearing mucosa. [...] Level: 4 - Moderate documented in this encounterCleveland Clinic [facility]08-04-2023 Nurse Note* Jayla Meza MA - [...] Temperature: No Drains: No documented in this encounterC[facility]06-22-2023 Miscellaneous Notes* Telephone Encounter - Linda [...] pended if you agree with the dosing. Susan, Linda documented in this encounterCleveland Clinic [facility] Hospital06-14-2023 Hospital Discharge instructions Patient Education 07/29/2022 [...] include: ?8 oz (237 mL) of milk, wxwmysf-zmpqekajxnop-duzse milk, and calcium- fortifiedfruit juice. Calcium-fortified means [...] ?Spinach (cooked), rhubarb, beets, sweet potatoes, and Palestinian chard. ?Peanuts. ?Potato chips, wolof fries, and baked potatoes with skin on. ?Nuts and nut products. ?Chocolate. If you regularly take a diuretic medicine, make sure to eat at least 1 or 2 servings of fruits or vegetables that are high in potassium each day. These include: ?Avocado. ?Banana. ?[place], prune, carrot, or tomato juice. ?Baked potato. [...] magnesium, fish oil, or vitamin B6. Take lcte-jac-xiofjfi and prescription medicines only as told by [...] Casseroles. Pizza. Lasagna. Frozen meals. Potato chips. Greenlandic fries. The items listed above may not [...] provider. Document Revised: 10/13/2021 Document Reviewed: 10/13/2021 [employer] Patient Education 2022 [employer]. Follow Up Care 06/30/2022 09:39:02 With:Nasim JOHNSON, YUMIKO Lamar, URO Address: When: Unknown [facility] 06-13-2023 NoteMercy [facility]sburg [facility]06-13-2023 Instructions* Patient Instructions* Bernardo Brenner MD [...] blistering or peeling skin. documented in this encounterCleveland Clinic [facility] Hospital06-13-2023 History of Present illness Narrative* Bernardo [...] Past Histories independently gathered by the clinical director of operations support, and the remaining scribed note accurately describes [...] visit. Bernardo Brenner MD documented in this encounterCleveland Clinic [facility] Hospital06-08-2023 Miscellaneous Notes* Telephone Encounter - Linda [...] denying M[employer] authorization Full letter scanned in [email or web address] for review Grecia Wallace * Telephone Encounter [...] 07/23/2022 8:49 AM EDT Fax received from [facility] to notify M[employer] not covered, will need PA or prescribe alternative: Noreen Alonzo or Veronique Fax scanned in [email or web address] Grecia Wallace documented in this encounterCleveland Clinic [facility] Hospital06-07-2023 NoteMer[facility]06-07-2023 History of Present illness Narrative* Donnie [...] with cornea provider or optom- closer to [place] - Will sendmessage Return precautions were discussed in detail Plan reviewed with the patient who verbalizes understanding Donnie David MD Ophthalmology Resident documented in this encounterCleveland Clinic [facility] Hospital06-07-2023 NoteMer[facility]06-07-2023 NoteMer[facility]06-07-2023 History of Present illness Narrative* Kasie [...] lesion. Mild degenerative changes. Lower thorax: Unremarkable. Checkout Supervisor (topogram) images: No additional findings. CT ABD/PEL [...] Tissues: No acute abnormality. Lower thorax: Unremarkable. Checkout Supervisor (topogram) images: No additional findings. US ABD [...] healthy appearing mucosa. This was traversed. The kqbxt-pk-mrhtlkz limb was characterized by healthy appearing mucosa. [...] 40 f bougie). This was traversed. The wfxuh-fo-wcbrvdx limb was characterized by healthy appearing mucosa. [...] * 95th percentile PH IMPEDANCE INSERT ON [facility] 01/07/21 Interpretation / Findings : Abnormal [...] ceroid-laden histiocytes. There is no interface activity. Squaxin bile duct branches are identified in nearly [...] MD July 22, 2022 documented in this encounterCleveland Clinic [facility] Hospital05-09-2023 NoteMer[facility]05-08-2023 NoteMer[facility]05-07-2023 NoteMer[facility]05-06-2023 NoteMer[facility]05-06-2023 History of Past illness Narrative* Problem Noted Date Resolved Date Intractable nausea and vomiting 06/20/2022 06/23/2022 Acute abdominal pain 12/21/2020 06/23/2022 Obesity 09/03/2020 11/29/2020 Abdominal pain 02/01/2020 04/08/2020 Moderate episode of recurrent major depressive d isorder 11/21/2019 01/03/2020 Obesity, Class II, BMI 35-39.9 10/13/2019 1 Last Assessment & Plan: Assessment: BMI 38.74 documented as of this encounter (statuses as of 07/22/2022) [facility]05-[facility] History of Past illness Narrative* Problem Noted Date Resolved Date Intractable nausea and vomiting 06/20/2022 06/23/2022 Acute abdominal pain 12/21/2020 06/23/2022 Obesity 09/03/2020 11/29/2020 Abdominal pain 02/01/2020 04/08/2020 Moderate episode of recurrent major depressive d isorder 11/21/2019 01/03/2020 Obesity, Class II, BMI 35-39.9 10/13/2019 1 Last Assessment & Plan: Assessment: BMI 38.74 documented as of this encounter (statuses as of 07/22/2022) [facility]05-06-[facility] History of Past illness Narrative* Problem Noted Date Resolved Date Intractable nausea and vomiting 06/20/2022 06/23/2022 Acute abdominal pain 12/21/2020 06/23/2022 Obesity 09/03/2020 11/29/2020 Abdominal pain 02/01/2020 04/08/2020 Moderate episode of recurrent major depressive d isorder 11/21/2019 01/03/2020 Obesity, Class II, BMI 35-39.9 10/13/2019 1 Last Assessment & Plan: Assessment: BMI 38.74 documented as of this encounter (statuses as of 07/23/2022) [facility]05-[facility] History of Past illness Narrative* Problem Noted Date Resolved Date Intractable nausea and vomiting 06/20/2022 06/23/2022 Acute abdominal pain 12/21/2020 06/23/2022 Obesity 09/03/2020 11/29/2020 Abdominal pain 02/01/2020 04/08/2020 Moderate episode of recurrent major depressive d isorder 11/21/2019 01/03/2020 Obesity, Class II, BMI 35-39.9 10/13/2019 1 Last Assessment & Plan: Assessment: BMI 38.74 documented as of this encounter (statuses as of 07/23/2022) [facility]05-[facility] History of Past illness Narrative* Problem Noted Date Resolved Date Intractable nausea and vomiting 06/20/2022 06/23/2022 Acute abdominal pain 12/21/2020 06/23/2022 Obesity 09/03/2020 11/29/2020 Abdominal pain 02/01/2020 04/08/2020 Moderate episode of recurrent major depressive d isorder 11/21/2019 01/03/2020 Obesity, Class II, BMI 35-39.9 10/13/2019 1 Last Assessment & Plan: Assessment: BMI 38.74 documented as of this encounter (statuses as of 08/03/2022) [facility] History of Past illness Narrative* Problem Noted Date Resolved Date Intractable nausea and vomiting 06/20/2022 06/23/2022 Acute abdominal pain 12/21/2020 06/23/2022 Obesity 09/03/2020 11/29/2020 Abdominal pain 02/01/2020 04/08/2020 Moderate episode of recurrent major depressive d isorder 11/21/2019 01/03/2020 Obesity, Class II, BMI 35-39.9 10/13/2019 1 Last Assessment & Plan: Assessment: BMI 38.74 documented as of this encounter (statuses as of 08/06/2022) [facility] History of Past illness Narrative* Problem [...] of this encounter (statuses as of 09/19/2022) [facility] of Past illness Narrative* Problem [...] of this encounter (statuses as of 09/22/2022) [facility] History of Past illness Narrative* Problem [...] of this encounter (statuses as of 09/28/2022) [facility] of Past illness Narrative* Problem [...] of this encounter (statuses as of 10/06/2022) [facility] of Past illness Narrative* Problem [...] of this encounter (statuses as of 10/15/2022) [facility] of Past illness Narrative* Problem [...] of this encounter (statuses as of 10/21/2022) [facility] History of Past illness Narrative* Problem [...] of this encounter (statuses as of 12/21/2022) [facility]05-04-2023 NoteMer[facility]05-04-2023 History of Present illness Narrative* Ciara [...] advised she may send a message on [employer] if she has any additional questions. Ciara Bello PA-C [facility] Date: June 18, 2022 Time: [...] No Swollen Glands: No documented in this encounterCleveland Clinic [facility] Hospital05-02-2023 [facility]12[facility] History of Present illness Narrative* Ciara Bello PA-C - 06/12/2022 10:26 AM EDT Images from the original note were not included. Rhe[facility]ology Outpatient Clinic Date of Service: 06/12/2022 Patient: Abbey Garcia Medical Record: [id number] Primary Care Physician: Wally Foley MD Last Rheumatology visit: None at [facility] Referring Provider: HENNY Marcus [address] [facility] [address] [facility] [address] Consultation requested by Agustin Valentino for an [...] hypothyroidism. Reports she has not seen her design agent recently. She reports symptoms are interrupted by [...] 2 Antichromatin nega <0.2 RF negative <10 PUBLIC RELATIONS COUNSELOR 0.3 SSA <0.2 SSB <0.2 Du <0.2 [...] symmetric on resisted finger separation and hand pneumatic riveter Knees FROM Ankles FROM No MTP squeeze [...] insufficiency and hypothyroidism. She has not seen design agent. Would like to rule out endocrine causes [...] which included preparing to see the patient, cltr-qg-avde patient care, completing clinical documentation, obtaining and/or reviewing separately obtained history, performing a medically appropriate examination, counseling and educating the pat ient/family/caregiver, and ordering medications, tests, or procedures. Ciara Bello PA-C [facility] Date: June 12, 2022 Time: 10:26 AM documented in this encounterCleveland Clinic Union Hospital04-26-2023 Hospital Discharge instructions Patient Education 06/10/2022 [...] you until you feel stable. Medicines Take xyqg-cgg-lmzdqmj and prescription medicines only as told by [...] provider. Document Revised: 06/12/2021 Document Reviewed: 06/12/2021 [employer] Patient Education 2022 [employer]. 06/10/2022 17:05:57 Nonspecific Chest Pain, Adult Nonspecific [...] Follow these instructions at home: Medicines Take ghvq-jex-emvockt and prescription medicines only as told by [...] provider. Document Revised: 04/17/2021 Document Reviewed: 04/17/2021 [employer] Patient Education 2022 [employer]. Follow Up Care 06/10/2022 12:31:10 With:Chetna Jack Address: [address] [place] [phone]- [phone] Business (1) When:06/13/2022 17:03:30 Comments:Schedule event loop recorder as well as echocardiogram with central scheduling and then follow-up with search manager Dr. Jack With:Jaquan Morrow Address: [address] [place] [phone]- Business (1) When:06/13/2022 17:03:46 Comments:Call the office [...] you develop any new or worsening symptoms. [facility]01-20-2023 Nurse Note* Eli Carter RN - 03/06/2022 12:59 PM [...] None REFERRAL (RECOMMENDATION): None documented in this encounterCleveland Clinic Union Hospital01-19-2023 Miscellaneous Notes* Telephone Encounter - Victor M Dennis - 03/05/2022 11:54 AM EST Spoke with the patient confirmed 1:45 arrival time for 2:45 appointment at [facility]. Victor M Dennis * Telephone Encounter - Li Kimball RN - 03/05/2022 10:31 AM EST I called patient and left a message with EGD appointment instructions and location. Call back number provided. Li Kimball RN documented in this encounterCleveland Clinic [facility] Hospital01-19-2023 Instructions* Patient Instructions* Breanna Stern APRN.BETH - 03/05/2022 10:18 AM EST I have asked scheduling to add you on for an appointment in 2 months for your regular follow up, we'll check your labs at that time. (I've ordered them, no need to fast) We may need to see you sooner based on results of your EGD documented in this encounterCleveland Clinic [facility] Hospital01-19-2023 History of Present illness Narrative* Breanna Stern APRN.BETH - 03/05/2022 9:31 AM EST BMI SURGERY [...] Total weight loss: 19.1 kg (42 lb) [place] weight: 70.3 kg (154 lb 14.5 oz) [...] Orders Breanna Stern APRN.BETH documented in this encounterCleveland Clinic [facility] Hospital12-30-2022 History of Present illness Narrative* Kuldip [...] taking tylenol for her pain. PHYSICAL EXAM: LMP 08/19/2020 General: Appears stated [...] lateral patellar facet. Bilateral PF crepitance IMPRESSION: (C30.477U) Acetabular labrum tear, right, subsequent encounter (primary encounter diagnosis) PLAN: 1. Medication: None. 2. Test(s)/Imaging/Referral(s): None. 3. Intervention: Continue conservative treatment. Objectively, patients hip is doing well post op. She has been dealing with a right knee injury as well (images were uploaded in the system today). She saw a provider in the [place] area who recommended her have an osteotomy. 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 We discussed the option of seeing Dr. Gutierres for a second opinion as patient is eager to see someone through the [facility] system. We will help her set [...] Past Histories independently gathered by the clinical director of operations support and the remaining scribed note accurately describes my personal service to the patient. Kuldip Yousif MD documented in this encounterCleveland Clinic [facility] Hospital12-22-2022 Miscellaneous Notes* Telephone Encounter - Li [...] nausea. Li Kimball RN documented in this encounterCleveland Clinic Union Hospital12-21-2022 History of Present illness Narrative* Montrell Tamez RD - 02/04/2022 9:24 AM EST [facility] Nutrition Therapy: Virtual Consult - Re-assessment [...] Fusion One a Day multivitamin capsule PLUS 0057-7034 mg calcium citrate daily) 4. Protein goal: 75-93 grams protein/day. 5. Fluid goal: 64oz per day water. (no calories, no caffeine, no carbonation, no alcohol) 6. Call the BMI department at [phone] to schedule your one month post op nutrition visit for February. Link to book as discussed: https://my.[facility].org/-/scassets/files/org/bariatric/guides/bmiguideboo k-[email or web address]?la=en Nutrition Monitoring & Evaluation: Adherence to [...] Fusion One a Day multivitamin capsule PLUS 0677-1944 mg calcium citrate 5. Exercise: strive for [...] None Likelihood of Adherence: Moderate Referred/Supervised by: Israel FRIAS Billing Type: Re-assess/15 min 1 unit SIGNATURE: Montrell Tamez RD PATIENT NAME: Abbey Garcia DATE: 02/04/2022 TIME: 9:24 AM PAGER: [phone] documented in this encounterCleveland Clinic Union Hospital12-20-2022 Instructions* Patient Instructions* Breanna Stern APRN.[facility] - 02/03/2022 3:42 PM EST Start Omeprazole [...] your activity as tolerated. documented in this encounterCleveland Clinic Union Hospital12-20-2022 History of Present illness Narrative* Breanna Stern APRN.CNP - 02/03/2022 2:58 PM EST Assessment BMI [...] Total weight loss: 15.4 kg (34 lb) [place] weight: 70.3 kg (154 lb 14.5 oz) [...] 1 month post op visit. Breanna Stern APRN.APPLICATION SECURITY ARCHITECT documented in this encounterCleveland Clinic Union Hospital12-20-2022 Nurse Note* Lucia Ramirez MA - 02/03/2022 2:53 PM EST What is the reason for your visit today? Follow up Who is your referring physician? Are you having poor oral intake? A little Have you had unintentional weight loss of 15 lbs/7 Kg in the last 3-6 months? NO Bowels: regular Wound: Temperature: No Drains: No documented in this encounterCleveland Clinic [facility] Hospital12-20-2022 Miscellaneous Notes* Telephone Encounter - Li [...] today at 3pm with Breanna Stern CNP. Li Kimball RN * Telephone Encounter - [...] 02/03/2022. Li Kimball RN documented in this encounterCleveland Clinic [facility] Hospital12-19-2022 Miscellaneous Notes* Telephone Encounter - Li Kimball RN - 02/02/2022 2:39 PM EST See 02/02/2022 MyChart encounter Li Kimball RN * Telephone Encounter - Olga Paul - 02/02/2022 8:46 AM EST Patient called in and will like a refill on pain medication. Patients pharmacy is the [facility] in [place]. Contact# [phone] documented in this encounterCleveland Clinic Union Hospital12-14-2022 History and physical note * Ioana Hogan PA-C - 01/28/2022 8:35 AM [...] Bilateral arthroscopic knee surgery- was catcher in [facility] PAST SURGICAL HISTORY OF 08/2020 gastric sleeve [...] fevers. Neuro: No history of TIA's, stroke, DIRECTOR GROUP SALES tumor, impaired sensorium, hemiplegia, paraplegia or quadraplegia. No neurological symptoms or problems. Respiratory: +RICHAR, asthma Negative for COPD, Current cough, Dyspnea, Home O2, Pneumonia within 6 weeks (date), Wheezing Cardiovascular: +hx HTN during /post , resolved. Negative for Recent RI, Angina, CAD, Chest Pain, CHF, DVT/PE GI: [...] 2022 TIME: 11:05 AM documented in this encounterCleveland Clinic Union Hospital12-08-2022 Instructions* Patient Instructions* Ioana Hogan PA-C - 01/22/2022 11:55 AM EST PATIENT PREOPERATIVE INSTRUCTIONS Deacon Kat MD has scheduled you for your procedure at this surgery center: [facility]: [phone] --[id number] [address]. Please check in on thet floor at registration desk 6. - Lab [...] Procedures: - YOU MUST HAVE A RESPONSIBLE MOLD PULLER TAKE YOU HOME. A RECORD TABULATING CLERK OR PAPER FEEDER CANNOT BE MADE A RESPONSIBLE MOLD PULLER. - We recommend that a responsible person stays with you overnight to take care of you. - You cannot stay in a hotel alone after outpatient surgery. You will not be permitted to have yoursurgery, if you do not have someone to take care of you. If you already have an Advance Directive, please fax a copy to [phone] or email to for it to be [...] day. Ioana Hogan PA-C documented in this encounterCleveland Clinic [facility] Hospital12-06-2022 Miscellaneous Notes* Telephone Encounter - Li [...] provided. Li Kimball RN documented in this encounterCleveland Clinic [facility] Hospital11-22-2022 Miscellaneous Notes* Telephone Encounter - Li [...] questions. Li Kimball RN documented in this encounterCleveland Clinic Union Hospital11-18-2022 Instructions* Patient Instructions* Sabina Joy APRN.BETH - 01/02/2022 11:29 AM EST Images from the original note were not included. Mutually Agreed Upon Goals Eating Plan: [employer] Pal BRE - Log intake 2 days [...] BRE for meditation - Mindful Moments by [facility] Sometrics. Lem[place]. Insight Timer https://[employer].Scout/health/mental-health/oii-wtpjxokueh-zjllib-android-ap ps#our-picks How can I fix my acid reflux after gastric sleeve surgery? Written by Eric Emery RD, LDN and medically reviewed by [...] but are usually stronger and faster than T9vcihduen. Dietary habits for acid reflux Reduce or [...] Try Breakfast: 1 scrambled egg (75 calories) South Sudanese muffin (67 calories) Calories per meal: 142 AM Snack & Fluids: *Spread out and sipped between meals 2 cups water (0 calories) 1 cup skim milk or unsweetened soy milk (90 calories) Calories per meal: 90 Lunch: 4 oz canned tuna in water (100 calories) 2 Tbsp fat free ortiz (20 calories) 1 slice low fat Palestinian cheese (50 calories) 1 slice whole grain [...] after gastric sleeve surgery? (Full meal plan) (Draft) .kml documented in this encounterCleveland Clinic Union Hospital11-18-2022 History of Present illness Narrative* Sabina [...] weight loss: 35 lbs or 14.58 % [place] weight: 70.3 kg (154 lb 14.5 oz) [...] No current facility-administered medications for this visit. ROS OBESITY MEDICINE COMORBIDITIES: Obstructive Sleep Apnea Sleep [...] which included preparing to see the patient, awhj-fe-lrvv patient care, completing clinical documentation, obtaining and/or reviewing separately obtained history, performing a medically appropriate examination, counseling and educating the pat ient/family/caregiver, independently interpreting results (not separately reported), and communicating results to the patient/family/caregiver. Follow up in 6 months. This visit was performed virtually due to the COVID-19 epidemic as an effort to protect patients and minimize exposure. documented in this encounterCleveland Clinic [facility] Hospital11-17-2022 History of Present illness Narrative* Marisabel Lynn LPN - 01/01/2022 2:41 PM EST 2Name: Abbey Garcia [facility]#: [id number] Date: 01/01/2022 HUERTA 48 HR PH FOLLOW-UP The HUERTA monitor was received today via [employer] transport.. Test data from the supervisory civil engineer was downloaded. Events from the patient diary were inserted into the study for physician review. .Marisabel Lynn LPN documented in this encounterCleveland Clinic [facility] Hospital11-10-2022 History of Present illness Narrative* Marisabel Lynn LPN - 12/25/2021 11:28 AM EST Name: Abbey Garcia CC#: [id number] Date: 12/25/2021 48hr HUERTA PH CAPSULE PLACEMENT [...] hours. 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 Date of Consent: 12/25/2021 Consent obtained by: Giselle Bonner MD A copy of the consent form was given to the consenting constitution party and ample time was provided for review. Extensive overview of the study was presented to the individuals above. Potential risks/benefits were reviewed. Alternatives (non-participation) were explained. All questions were answered and understanding was verbalized. The patient wished to proceed. A signed and dated copy of the informed consent was provided to the consenting constitution party. Mateusz Kraft Research Coordinator documented in this encounterCleveland Clinic Union Hospital10-05-2022 Miscellaneous Notes* Telephone Encounter - Li Kimball RN - 11/19/2021 10:57 AM EDT I called the patient and left a message for the patient to call [phone], option 0 to schedule the pH Impedence testing. Call back number provided for additional questions or concerns. Li Kimball RN documented in this encounterCleveland Clinic Union Hospital10-03-2022 History of Present illness Narrative* Deacon [...] mcg, Iron 45-60 mg and calcium citrate 4373-3495 mg/day PHYSICAL EXAMINATION General appearance: Well appearing, [...] the date of the service which included dagd-xr-fbhu patient care, completing clinical documentation, obtaining and/or reviewing separately obtained history, counseling and educating the patient/family/caregiver, and ordering medications, tests, or procedures. Deacon Kat MD documented in this encounterCleveland Clinic Union Hospital10-03-2022 Miscellaneous Notes* Telephone Encounter - Grecia Wallace - 11/17/2021 11:21 AM EDT Pharmacy fax requesting refills as follows: Patient scheduled for follow up visit Dec 24 Requested Prescriptions Pending Prescriptions Disp Refills famotidine (PEPCID) 40 mg tablet 90 tablet 1 Sig: Take 1 tablet by mouth once daily. Please review and advise. Grecia Wallace documented in this encounterCleveland Clinic Union Hospital09-06-2022 Miscellaneous Notes* Telephone Encounter - Cornel Conrad - 10/21/2021 11:14 AM EDT Do not schedule on 10/[address] Yousif. Cornel Conrad * Telephone Encounter - Cornel Conrad - 10/21/2021 10:10 AM EDT Called patient to reschedule 10/[address] Yousif will be out of the office in the afternoon that day. Per Dr. Yousif, patient can be rescheduled at [address] on 10/21 between 4:15-5:[address] on 10/24 from 8 AM - 12 PM. Do not double book slots. Cornel Conrad documented in this encounterCleveland Clinic Union Hospital09-06-2022 Miscellaneous Notes* Telephone Encounter - Slime Nickerson - 10/21/2021 8:25 AM EDT Called patient to reschedule 10/[address] Yousif will be out of the office in the afternoon that day. Per Dr. Yousif, patient can be rescheduled at [address] on 10/21 between 4:15-5:30 PM or on 10/22 in [place] between 4-6 PM. Do not double book slots. documented in this encounterCleveland Clinic Union Hospital08-25-2022 Instructions* Patient Instructions* Sabina Joy APRN.CNP - 10/09/2021 3:56 PM EDT Images from the original note were not included. Mutually Agreed Upon Goals Eating Plan: [employer] Pal BRE - Log intake 7 days per week. Replace skipped meals with a protein supplement. Bariatric Plate Method Activity: Walking as tolerated. Chair exercises Sleep: No electronic for 30 minutes prior to sleep 2 nights per week. Practice Sleep Hygiene. CPAP nightly Stress: BRE for meditation - Mindful Moments by [facility] Wellness. Insight Timer https://www.[employer]/health/mental-health/mnn-awluskvezh-zfuimf-android-ap ps#our-picks Steps to Follow Bariatric Plate Total [...] own fruit infused price >> lemon or rampart with oranges, blackberries, strawberries and fresh mint, [...] with food. Calcium Citrate with Vitamin D 2469-5474 mg calcium - DO NOT TAKE WITH IRON OR MULTIVITAMIN Vitamin D3 - take 3,000 international unit(s) per day from all sources documented in this encounterCleveland Clinic Union Hospital08-25-2022 History of Present illness Narrative* Sabina [...] 32.28 kg/(m^2) Total weight loss: 42 lbs [place] weight: 70.3 kg (154 lb 14.5 oz) [...] which included preparing to see the patient, bjve-mo-hgjt patient care, completing clinical documentation, obtaining and/or reviewing separately obtained history, performing a medically appropriate examination, counseling and educating the pat ient/family/caregiver, ordering medications, tests, or procedures, independently interpreting results (not separately reported), and communicating results to the patient/family/caregiver. Medical Decision Making: Level: 1 - N/A Sabina Joy APRN.BETH documented in this encounterCleveland Clinic Union Hospital07-16-2022 Hospital Discharge instructions* Discharge Instructions* Pablo Atwood DO - 08/30/2021 4:11 AM EDT Please take all medications as prescribed and follow-up with your oral surgeon on Wednesday as scheduled. * Attachments The following attachments cannot be sent through Care Everywhere. * Tooth: Abscessed (South Sudanese) documented in this encounterB[facility] Work Phone: [phone]) 226-277507-15-2022 Miscellaneous Notes* Telephone Encounter - Justine Shabazz PA-C - 08/29/2021 2:55 PM EDT Pharmacy generated request, refill not appropriate. Justine Shabazz PA-C documented in this encounterCleveland Clinic Union Hospital07-15-2022 Instructions* Patient Instructions* Justine Shabazz PA-C [...] and carry free weights documented in this encounterCleveland Clinic Union Hospital07-15-2022 History of Present illness Narrative* Justine hSabazz PA-C - 08/29/2021 2:16 PM EDT POST OP DISTANCE HEALTH VIRTUAL VISIT DOCUMENTATION NOTE This virtual visit was performed via video enabled technology, and the patient provided consent to be evaluated and managed using this virtual visit and video enabled technology. Distance Health Platform: Jelly HQ Virtual Visit People present : Justine Shabazz [...] [address] Nica Shabazz, MS, PA-C documented in this encounterCleveland Clinic Union Hospital07-14-2022 Instructions* Patient Instructions* Xiomara Martinez RD - 08/28/2021 8:28 AM EDT 1. Protein: [...] Fusion One a Day multivitamin capsule PLUS 8250-8650 mg calcium citrate 5. Exercise: strive for [...] or sooner if needed documented in this encounterCleveland Clinic Union Hospital07-14-2022 History of Present illness Narrative* Xiomara Martinez RD - 08/28/2021 7:54 AM EDT [facility] Nutrition Therapy: Virtual Consult Re-assessment This [...] Fluids: water (64 oz), gatorade zero, Body [place] light Exercise: limited to PT due to [...] Rate: 1635 Energy needs for weight loss 4517-2684 (15-20 carina/kg current weight) Protein needs: 75-93 [...] Fusion One a Day multivitamin capsule PLUS 6261-3188 mg calcium citrate 5. Exercise: strive for [...] by: Xiomara Martinez RD documented in this encounterCleveland Clinic [facility] Hospital07-08-2022 Evaluation note* Encounter Date Diagnosis Assessment Notes Treatment Notes Treatment Clinical Notes Aug, PTSD (post-traumatic stress disorder) (ICD-10 - F43.10) [employer] [facility] Other 07-08-2022 Miscellaneous Notes* Telephone Encounter - Grecia Wallace - 08/22/2021 10:40 AM EDT Pharmacy fax requesting refills as follows: patient has a follow up visit 09/24/21 Pending Prescriptions Disp Refills OMEPRAZOLE 40 MG CAPSULE,DELAYED RELEASE 60 capsule 0 Sig: Take 1 capsule by mouth twice daily. ELIJAH: No Please review and advise. Grecia Munguia documented in this encounterCleveland Clinic [facility] Hospital07-03-2022 Evaluation note* Encounter Date Diagnosis Assessment [...] system will be more sensitive than normal. [employer] [facility] Other 06-30-2022 Miscellaneous Notes* Telephone Encounter - Justine Shabazz PA-C - 08/14/2021 2:51 PM EDT Pharmacy generated request, refill not appropriate. Justine Shabazz PA-C documented in this encounterCleveland Clinic [facility] Hospital06-17-2022 Instructions* Patient Instructions* Justine Shabazz PA-C [...] hyperextension(moving leg backward) and letting your feet fountain pen turner when standing or laying flat- until 3 [...] others. Follow-up: 4 weeks documented in this encounterCleveland Clinic Union Hospital06-17-2022 History of Present illness Narrative* Justine Shabazz PA-C - 08/01/2021 10:55 AM EDT POST OP DISTANCE HEALTH VIRTUAL VISIT DOCUMENTATION NOTE This virtual visit was performed via video enabled technology, and the patient provided consent to be evaluated and managed using this virtual visit and video enabled technology. Distance Health Platform: Jelly HQ Virtual Visit People present : Justine Shabazz PA-C and Patient Time Spent for video encounter, record review and documentation: 15 minutes CHIEF COMPLAINT (CC): Post op right hip HISTORY OF PRESENT ILLNESS (HPI): 3 weeks s/p 1. right hip arthroscopy. 2. Acetabuloplasty CPT 90099 3. Labral repair. CPT 56524 4. Femoroplasty. CPT 57339 5. Capsular Closure DOS: 08/10/21 Denies systemic [...] will review MRI right knee (uploaded in [employer]). She has been referredto physician in [place] and was recommended to have osteotomy, she [...] hyperextension(moving leg backward) and letting your feet fountain pen turner when standing or laying flat- until 3 [...] Justine Shabazz MS, PA-C documented in this encounterCleveland Clinic Union Hospital05-20-2022 History of Present illness Narrative* Justine Shabazz PA-C - 07/04/2021 10:59 AM EDT AMBULATORY TELEPHONE VISIT Abbey Garcia has consented to this telephone encounter. Persons Present: patient Chief Complaint/Reason: Pre op right hip HPI: 31 y/o female scheduled for right hip arthroscopy with Dr Yousif 07/10/21 at [facility]. Discussion to ensure optimized for surgery Data Reviewed: Procedure: verified - questions answered Consent: in [facility] - not signed Imaging: outside MR an XR in [facility] with report scanned - views sufficient PACC: completed 06/24/21 Brace fitting: completed Crutches: has a pair and able to use - instructed she can leave in car DOS Medical considerations - laparoscopic sleeve 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 - down 50 lb Anticoagulation medications: no Pharmacy/ scripts: [facility] - advised will be sent 07/09/21 day [...] with Dr Yousif Post op RXs to [facility] [place] 07/09/21 PT 07/11/21 Post op follow up 07/30/21 - ideally virtual Total Time Spent: 8 minutes Justine Shabazz PA-C documented in this encounterCleveland Clinic Union Hospital05-09-2022 History of Present illness Narrative* Justine Shabazz PA-C - 06/23/2021 4:02 PM EDT Surgery scheduling/order review encounter: Jace Duarte ATC 06/23/21 patient update encounter for scheduling right [...] must be done in radiology at the [facility] to ensure correct views.) Brace fitting: Yes - ( hip brace fit with DJO Rep at [facility]) Pre op PT visit required for HIP [...] up) No. Pre op instructions sent via [employer]. DONAVAN Douglas documented in this encounterCleveland Clinic Union Hospital05-04-2022 History of Present illness Narrative* Kuldip Yousif MD - 06/18/2021 11:00 AM EDT x * Kuldip Yousif MD - 06/18/2021 10:23 AM EDT Images from the original note were not included. 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 Kuldip Yousif MD documented in this encounterCleveland Clinic [facility] Hospital04-18-2022 History of Present illness Narrative* Lucie [...] to that time. [facility] Evaluation note * Encounter Date Diagnosis [...] intake. Mar, Other Asthma material was printed [facility] Other 12-14-2021 Evaluation note* Encounter Date Diagnosis [...] to be seen. Also always know the [facility] Health Emergency Number is 24 hours a day [...] surgeon after discussing options and treatment locations. [facility] Other 07-20-2021 History of Past illness Narrative* Problem Noted Date Resolved Date Obesity 09/03/2020 11/29/2020 Abdominal pain 02/01/2020 04/08/2020 Moderate episode of recurrent major depressive d isorder 11/21/2019 01/03/2020 Obesity, Class II, BMI 35-39.9 10/13/2019 1 Last Assessment & Plan: Assessment: BMI 38.74 documented as of this encounter (statuses as of 06/18/2021) [facility]07-20-[facility] History of Past illness Narrative* Problem Noted Date Resolved Date Obesity 09/03/2020 11/29/2020 Abdominal pain 02/01/2020 04/08/2020 Moderate episode of recurrent major depressive d isorder 11/21/2019 01/03/2020 Obesity, Class II, BMI 35-39.9 10/13/2019 1 Last Assessment & Plan: Assessment: BMI 38.74 documented as of this encounter (statuses as of 06/23/2021) [facility]07-20-[facility] History of Past illness Narrative* Problem Noted Date Resolved Date Obesity 09/03/2020 11/29/2020 Abdominal pain 02/01/2020 04/08/2020 Moderate episode of recurrent major depressive d isorder 11/21/2019 01/03/2020 Obesity, Class II, BMI 35-39.9 10/13/2019 1 Last Assessment & Plan: Assessment: BMI 38.74 documented as of this encounter (statuses as of 07/09/2021) [facility] History of Past illness Narrative* Problem Noted Date Resolved Date Obesity 09/03/2020 11/29/2020 Abdominal pain 02/01/2020 04/08/2020 Moderate episode of recurrent major depressive d isorder 11/21/2019 01/03/2020 Obesity, Class II, BMI 35-39.9 10/13/2019 1 Last Assessment & Plan: Assessment: BMI 38.74 documented as of this encounter (statuses as of 07/15/2021) [facility] History of Past illness Narrative* Problem Noted Date Resolved Date Obesity 09/03/2020 11/29/2020 Abdominal pain 02/01/2020 04/08/2020 Moderate episode of recurrent major depressive d isorder 11/21/2019 01/03/2020 Obesity, Class II, BMI 35-39.9 10/13/2019 1 Last Assessment & Plan: Assessment: BMI 38.74 documented as of this encounter (statuses as of 07/28/2021) [facility] History of Past illness Narrative* Problem Noted Date Resolved Date Obesity 09/03/2020 11/29/2020 Abdominal pain 02/01/2020 04/08/2020 Moderate episode of recurrent major depressive d isorder 11/21/2019 01/03/2020 Obesity, Class II, BMI 35-39.9 10/13/2019 1 Last Assessment & Plan: Assessment: BMI 38.74 documented as of this encounter (statuses as of 08/01/2021) [facility] of Past illness Narrative* Problem Noted Date Resolved Date Obesity 09/03/2020 11/29/2020 Abdominal pain 02/01/2020 04/08/2020 Moderate episode of recurrent major depressive d isorder 11/21/2019 01/03/2020 Obesity, Class II, BMI 35-39.9 10/13/2019 1 Last Assessment & Plan: Assessment: BMI 38.74 documented as of this encounter (statuses as of 08/14/2021) [facility]20-2021 History of Past illness Narrative* Problem Noted Date Resolved Date Obesity 09/03/2020 11/29/2020 Abdominal pain 02/01/2020 04/08/2020 Moderate episode of recurrent major depressive d isorder 11/21/2019 01/03/2020 Obesity, Class II, BMI 35-39.9 10/13/2019 1 Last Assessment & Plan: Assessment: BMI 38.74 documented as of this encounter (statuses as of 08/22/2021) [facility]2021 History of Past illness Narrative* Problem Noted Date Resolved Date Obesity 09/03/2020 11/29/2020 Abdominal pain 02/01/2020 04/08/2020 Moderate episode of recurrent major depressive d isorder 11/21/2019 01/03/2020 Obesity, Class II, BMI 35-39.9 10/13/2019 1 Last Assessment & Plan: Assessment: BMI 38.74 documented as of this encounter (statuses as of 08/28/2021) [facility]21 History of Past illness Narrative* Problem Noted Date Resolved Date Obesity 09/03/2020 11/29/2020 Abdominal pain 02/01/2020 04/08/2020 Moderate episode of recurrent major depressive d isorder 11/21/2019 01/03/2020 Obesity, Class II, BMI 35-39.9 10/13/2019 1 Last Assessment & Plan: Assessment: BMI 38.74 documented as of this encounter (statuses as of 08/29/2021) [facility] History of Past illness Narrative* Problem Noted Date Resolved Date Obesity 09/03/2020 11/29/2020 Abdominal pain 02/01/2020 04/08/2020 Moderate episode of recurrent major depressive d isorder 11/21/2019 01/03/2020 Obesity, Class II, BMI 35-39.9 10/13/2019 1 Last Assessment & Plan: Assessment: BMI 38.74 documented as of this encounter (statuses as of 08/29/2021) [facility] History of Past illness Narrative* Problem Noted Date Resolved Date Obesity 09/03/2020 11/29/2020 Abdominal pain 02/01/2020 04/08/2020 Moderate episode of recurrent major depressive d isorder 11/21/2019 01/03/2020 Obesity, Class II, BMI 35-39.9 10/13/2019 1 Last Assessment & Plan: Assessment: BMI 38.74 documented as of this encounter (statuses as of 09/02/2021) [facility] History of Past illness Narrative* Problem Noted Date Resolved Date Obesity 09/03/2020 11/29/2020 Abdominal pain 02/01/2020 04/08/2020 Moderate episode of recurrent major depressive d isorder 11/21/2019 01/03/2020 Obesity, Class II, BMI 35-39.9 10/13/2019 1 Last Assessment & Plan: Assessment: BMI 38.74 documented as of this encounter (statuses as of 10/09/2021) [facility] History of Past illness Narrative* Problem Noted Date Resolved Date Obesity 09/03/2020 11/29/2020 Abdominal pain 02/01/2020 04/08/2020 Moderate episode of recurrent major depressive d isorder 11/21/2019 01/03/2020 Obesity, Class II, BMI 35-39.9 10/13/2019 1 Last Assessment & Plan: Assessment: BMI 38.74 documented as of this encounter (statuses as of 10/09/2021) [facility] History of Past illness Narrative* Problem Noted Date Resolved Date Obesity 09/03/2020 11/29/2020 Abdominal pain 02/01/2020 04/08/2020 Moderate episode of recurrent major depressive d isorder 11/21/2019 01/03/2020 Obesity, Class II, BMI 35-39.9 10/13/2019 1 Last Assessment & Plan: Assessment: BMI 38.74 documented as of this encounter (statuses as of 10/21/2021) [facility] History of Past illness Narrative* Problem Noted Date Resolved Date Obesity 09/03/2020 11/29/2020 Abdominal pain 02/01/2020 04/08/2020 Moderate episode of recurrent major depressive d isorder 11/21/2019 01/03/2020 Obesity, Class II, BMI 35-39.9 10/13/2019 1 Last Assessment & Plan: Assessment: BMI 38.74 documented as of this encounter (statuses as of 11/18/2021) [facility] History of Past illness Narrative* Problem Noted Date Resolved Date Obesity 09/03/2020 11/29/2020 Abdominal pain 02/01/2020 04/08/2020 Moderate episode of recurrent major depressive d isorder 11/21/2019 01/03/2020 Obesity, Class II, BMI 35-39.9 10/13/2019 1 Last Assessment & Plan: Assessment: BMI 38.74 documented as of this encounter (statuses as of 11/18/2021) [facility] History of Past illness Narrative* Problem Noted Date Resolved Date Obesity 09/03/2020 11/29/2020 Abdominal pain 02/01/2020 04/08/2020 Moderate episode of recurrent major depressive d isorder 11/21/2019 01/03/2020 Obesity, Class II, BMI 35-39.9 10/13/2019 1 Last Assessment & Plan: Assessment: BMI 38.74 documented as of this encounter (statuses as of 11/19/2021) [facility] History of Past illness Narrative* Problem Noted Date Resolved Date Obesity 09/03/2020 11/29/2020 Abdominal pain 02/01/2020 04/08/2020 Moderate episode of recurrent major depressive d isorder 11/21/2019 01/03/2020 Obesity, Class II, BMI 35-39.9 10/13/2019 1 Last Assessment & Plan: Assessment: BMI 38.74 documented as of this encounter (statuses as of 11/19/2021) [facility] History of Past illness Narrative* Problem Noted Date Resolved Date Obesity 09/03/2020 11/29/2020 Abdominal pain 02/01/2020 04/08/2020 Moderate episode of recurrent major depressive d isorder 11/21/2019 01/03/2020 Obesity, Class II, BMI 35-39.9 10/13/2019 1 Last Assessment & Plan: Assessment: BMI 38.74 documented as of this encounter (statuses as of 12/17/2021) [address]20-2021 History of Past illness Narrative* Problem Noted Date Resolved Date Obesity 09/03/2020 11/29/2020 Abdominal pain 02/01/2020 04/08/2020 Moderate episode of recurrent major depressive d isorder 11/21/2019 01/03/2020 Obesity, Class II, BMI 35-39.9 10/13/2019 1 Last Assessment & Plan: Assessment: BMI 38.74 documented as of this encounter (statuses as of 12/25/2021) [address]20-2021 History of Past illness Narrative* Problem Noted Date Resolved Date Obesity 09/03/2020 11/29/2020 Abdominal pain 02/01/2020 04/08/2020 Moderate episode of recurrent major depressive d isorder 11/21/2019 01/03/2020 Obesity, Class II, BMI 35-39.9 10/13/2019 1 Last Assessment & Plan: Assessment: BMI 38.74 documented as of this encounter (statuses as of 12/25/2021) [address]20-2021 History of Past illness Narrative* Problem Noted Date Resolved Date Obesity 09/03/2020 11/29/2020 Abdominal pain 02/01/2020 04/08/2020 Moderate episode of recurrent major depressive d isorder 11/21/2019 01/03/2020 Obesity, Class II, BMI 35-39.9 10/13/2019 1 Last Assessment & Plan: Assessment: BMI 38.74 documented as of this encounter (statuses as of 12/25/2021) [address]20-2021 History of Past illness Narrative* Problem Noted Date Resolved Date Obesity 09/03/2020 11/29/2020 Abdominal pain 02/01/2020 04/08/2020 Moderate episode of recurrent major depressive d isorder 11/21/2019 01/03/2020 Obesity, Class II, BMI 35-39.9 10/13/2019 1 Last Assessment & Plan: Assessment: BMI 38.74 documented as of this encounter (statuses as of 12/26/2021) [address]20-2021 History of Past illness Narrative* Problem Noted Date Resolved Date Obesity 09/03/2020 11/29/2020 Abdominal pain 02/01/2020 04/08/2020 Moderate episode of recurrent major depressive d isorder 11/21/2019 01/03/2020 Obesity, Class II, BMI 35-39.9 10/13/2019 1 Last Assessment & Plan: Assessment: BMI 38.74 documented as of this encounter (statuses as of 01/01/2022) [address]20-2021 History of Past illness Narrative* Problem Noted Date Resolved Date Obesity 09/03/2020 11/29/2020 Abdominal pain 02/01/2020 04/08/2020 Moderate episode of recurrent major depressive d isorder 11/21/2019 01/03/2020 Obesity, Class II, BMI 35-39.9 10/13/2019 1 Last Assessment & Plan: Assessment: BMI 38.74 documented as of this encounter (statuses as of 01/02/2022) [address]20-2021 History of Past illness Narrative* Problem Noted Date Resolved Date Obesity 09/03/2020 11/29/2020 Abdominal pain 02/01/2020 04/08/2020 Moderate episode of recurrent major depressive d isorder 11/21/2019 01/03/2020 Obesity, Class II, BMI 35-39.9 10/13/2019 1 Last Assessment & Plan: Assessment: BMI 38.74 documented as of this encounter (statuses as of 01/06/2022) [address]20-2021 History of Past illness Narrative* Problem Noted Date Resolved Date Obesity 09/03/2020 11/29/2020 Abdominal pain 02/01/2020 04/08/2020 Moderate episode of recurrent major depressive d isorder 11/21/2019 01/03/2020 Obesity, Class II, BMI 35-39.9 10/13/2019 1 Last Assessment & Plan: Assessment: BMI 38.74 documented as of this encounter (statuses as of 01/20/2022) [facility]21 History of Past illness Narrative* Problem Noted Date Resolved Date Obesity 09/03/2020 11/29/2020 Abdominal pain 02/01/2020 04/08/2020 Moderate episode of recurrent major depressive d isorder 11/21/2019 01/03/2020 Obesity, Class II, BMI 35-39.9 10/13/2019 1 Last Assessment & Plan: Assessment: BMI 38.74 documented as of this encounter (statuses as of 01/28/2022) [address]20-2021 History of Past illness Narrative* Problem Noted Date Resolved Date Obesity 09/03/2020 11/29/2020 Abdominal pain 02/01/2020 04/08/2020 Moderate episode of recurrent major depressive d isorder 11/21/2019 01/03/2020 Obesity, Class II, BMI 35-39.9 10/13/2019 1 Last Assessment & Plan: Assessment: BMI 38.74 documented as of this encounter (statuses as of 02/02/2022) [address]20-2021 History of Past illness Narrative* Problem Noted Date Resolved Date Obesity 09/03/2020 11/29/2020 Abdominal pain 02/01/2020 04/08/2020 Moderate episode of recurrent major depressive d isorder 11/21/2019 01/03/2020 Obesity, Class II, BMI 35-39.9 10/13/2019 1 Last Assessment & Plan: Assessment: BMI 38.74 documented as of this encounter (statuses as of 02/02/2022) [address]20-2021 History of Past illness Narrative* Problem Noted Date Resolved Date Obesity 09/03/2020 11/29/2020 Abdominal pain 02/01/2020 04/08/2020 Moderate episode of recurrent major depressive d isorder 11/21/2019 01/03/2020 Obesity, Class II, BMI 35-39.9 10/13/2019 1 Last Assessment & Plan: Assessment: BMI 38.74 documented as of this encounter (statuses as of 02/03/2022) [facility]21 History of Past illness Narrative* Problem Noted Date Resolved Date Obesity 09/03/2020 11/29/2020 Abdominal pain 02/01/2020 04/08/2020 Moderate episode of recurrent major depressive d isorder 11/21/2019 01/03/2020 Obesity, Class II, BMI 35-39.9 10/13/2019 1 Last Assessment & Plan: Assessment: BMI 38.74 documented as of this encounter (statuses as of 02/03/2022) [facility]2021 History of Past illness Narrative* Problem Noted Date Resolved Date Obesity 09/03/2020 11/29/2020 Abdominal pain 02/01/2020 04/08/2020 Moderate episode of recurrent major depressive d isorder 11/21/2019 01/03/2020 Obesity, Class II, BMI 35-39.9 10/13/2019 1 Last Assessment & Plan: Assessment: BMI 38.74 documented as of this encounter (statuses as of 02/04/2022) [facility]21 History of Past illness Narrative* Problem Noted Date Resolved Date Obesity 09/03/2020 11/29/2020 Abdominal pain 02/01/2020 04/08/2020 Moderate episode of recurrent major depressive d isorder 11/21/2019 01/03/2020 Obesity, Class II, BMI 35-39.9 10/13/2019 1 Last Assessment & Plan: Assessment: BMI 38.74 documented as of this encounter (statuses as of 02/06/2022) [facility]21 History of Past illness Narrative* Problem Noted Date Resolved Date Obesity 09/03/2020 11/29/2020 Abdominal pain 02/01/2020 04/08/2020 Moderate episode of recurrent major depressive d isorder 11/21/2019 01/03/2020 Obesity, Class II, BMI 35-39.9 10/13/2019 1 Last Assessment & Plan: Assessment: BMI 38.74 documented as of this encounter (statuses as of 02/15/2022) [facility]21 History of Past illness Narrative* Problem Noted Date Resolved Date Obesity 09/03/2020 11/29/2020 Abdominal pain 02/01/2020 04/08/2020 Moderate episode of recurrent major depressive d isorder 11/21/2019 01/03/2020 Obesity, Class II, BMI 35-39.9 10/13/2019 1 Last Assessment & Plan: Assessment: BMI 38.74 documented as of this encounter (statuses as of 02/18/2022) [facility] History of Past illness Narrative* Problem Noted Date Resolved Date Obesity 09/03/2020 11/29/2020 Abdominal pain 02/01/2020 04/08/2020 Moderate episode of recurrent major depressive d isorder 11/21/2019 01/03/2020 Obesity, Class II, BMI 35-39.9 10/13/2019 1 Last Assessment & Plan: Assessment: BMI 38.74 documented as of this encounter (statuses as of 03/05/2022) [facility]21 History of Past illness Narrative* Problem Noted Date Resolved Date Obesity 09/03/2020 11/29/2020 Abdominal pain 02/01/2020 04/08/2020 Moderate episode of recurrent major depressive d isorder 11/21/2019 01/03/2020 Obesity, Class II, BMI 35-39.9 10/13/2019 1 Last Assessment & Plan: Assessment: BMI 38.74 documented as of this encounter (statuses as of 03/05/2022) [facility] History of Past illness Narrative* Problem Noted Date Resolved Date Obesity 09/03/2020 11/29/2020 Abdominal pain 02/01/2020 04/08/2020 Moderate episode of recurrent major depressive d isorder 11/21/2019 01/03/2020 Obesity, Class II, BMI 35-39.9 10/13/2019 1 Last Assessment & Plan: Assessment: BMI 38.74 documented as of this encounter (statuses as of 03/07/2022) [facility] History of Past illness Narrative* Problem Noted Date Resolved Date Obesity 09/03/2020 11/29/2020 Abdominal pain 02/01/2020 04/08/2020 Moderate episode of recurrent major depressive d isorder 11/21/2019 01/03/2020 Obesity, Class II, BMI 35-39.9 10/13/2019 1 Last Assessment & Plan: Assessment: BMI 38.74 documented as of this encounter (statuses as of 03/30/2022) [facility] History of Past illness Narrative* Problem Noted Date Resolved Date Obesity 09/03/2020 11/29/2020 Abdominal pain 02/01/2020 04/08/2020 Moderate episode of recurrent major depressive d isorder 11/21/2019 01/03/2020 Obesity, Class II, BMI 35-39.9 10/13/2019 1 Last Assessment & Plan: Assessment: BMI 38.74 documented as of this encounter (statuses as of 06/14/2022) [facility] History of Past illness Narrative* Problem Noted Date Resolved Date Obesity 09/03/2020 11/29/2020 Abdominal pain 02/01/2020 04/08/2020 Moderate episode of recurrent major depressive d isorder 11/21/2019 01/03/2020 Obesity, Class II, BMI 35-39.9 10/13/2019 1 Last Assessment & Plan: Assessment: BMI 38.74 documented as of this encounter (statuses as of 06/18/2022) [facility]05[facility]18-[facility]21 Emergency department Note* Nabila Childs RN [...] 07/02/2020 2:36 PM EDT Emergency Department Report [facility] EMERGENCY DEPARTMENT Service Date:.07/02/20 PCP: Shanna [...] Social Gatherings with Friends and Family: Attends Jewish Services: Active Member of Clubs or Organizations: [...] POSITIVE ANTIBODY SCREEN NEGATIVE ARM BAND NUMBER [id number] URINALYSIS, MACRO Result Value Ref Range COLOR, [...] H&H is stable. She was started on [place] and Zofran. 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 Chart was 5 to the MANUFACTURING DIRECTOR's office. 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 She is discharged [...] bleeding with large clots documented in this [facility]07-24-2020 Evaluation + Plan note Future Appointments Appointment Date:07/23/2022 01:00:00 PM Scheduled [facility] Type:[facility] Echo (FT) Appointment Date:09/07/2022 11:00:00 AM Scheduled Provider:Nate PRICE MD Location:[facility] Appointment Type:URO New Patient Future Scheduled Tests Radiology* US Renal 06/10/22 * Echo Transthoracic Complete 07/23/22 [facility]05-24-2020 Evaluation + Plan note Future Appointments Appointment Date:07/07/2022 11:00:00 AM Scheduled Provider: [facility] Type:CV Echo (FT) Appointment Date:07/08/2022 01:00:00 PM Scheduled Provider:Chetna Jack MD [facility] Type:Cardiology New Patient (FT) Future Scheduled Tests Radiology* US Renal 06/10/22 * Echo Transthoracic [facility]ments Appointment Date:06/11/2022 03:00:00 PM Scheduled Provider:Chetna Jack [facility] Type:Cardiology New Patient (FT) Future Scheduled Tests Radiology* [facility]ments Appointment Date:09/07/2022 11:00:00 AM Scheduled Provider:Nate PRICE MD Location:[facility] Appointment Type:URO New Patient Future Scheduled Tests Radiology* [facility]ments Appointment Date:01/20/2023 10:00:00 AM Scheduled Provider:Rajni Rouse MD Location:[facility] Appointment Type:URO Office Visit Future Scheduled Tests Radiology* US Renal 06/10/22 [facility] evaluation + Plan note Future Appointments Appointment Date:10/21/2022 02:20:00 PM Scheduled Provider:Jaquan Paula Location:[facility] Appointment Type: ER/Hospital Follow Up Appointment Date:11/20/2022 02:40:00 PM Scheduled Provider: Location:[facility] Appointment Type:FM Lab Draw Appointment Date:01/20/2023 10:00:00 AM Scheduled Provider:Rajni Rouse MD Location:[facility] Appointment Type:URO Office Visit Future Scheduled Tests Laboratory* T3 Free 10/07/22 * Thyroid Stimulating Hormone 10/07/22 * Free T4 10/07/22 Radiology* [facility]ments Appointment Date:11/19/2022 02:30:00 PM Scheduled Provider:Odilon Strange MD [facility] Appoint[facility] Type:Cardiology New Patient () Appointment Date:01/20/2023 10:00:00 AM Scheduled Provider:Rajni Rouse MD Location:[facility] Appointment Type:URO Office Visit Future Scheduled Tests Radiology* US Renal [facility]10[facility]22 [facility] [place] [facility] Future Appointments Appointment Date:07/13/2023 08:20:00 AM Scheduled Provider:OLGA GATICA PA-C Location:[facility] Appointment Type:URO Office Visit Appointment Date:08/04/2023 09:45:00 AM Scheduled Provider:Rajni Rouse MD Location:[facility] Appointment Type:URO Office Visit Future Scheduled Tests Radiology* US Renal 06/10/22 [facility] note* Diagnosis Complex ovarian cyst- Primary Other and unspecified ovarian cyst Uterine leiomyoma, unspecified location [facility] [place] [facility]* Diagnosis Contusion of right thumb without damage to nail, initial encounter- Primary documented in this encounter [employer]: evaluation note* Diagnosis 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 documented in this encounter [facility] note* Diagnosis Acetabular labrum tear, right, initial encounter- Primary documented in this encounter [facility] note* Diagnosis Tear of right acetabular labrum, subsequent encounter- Primary documented in this encounter [facility] note* Diagnosis Tear of right acetabular labrum, subsequent encounter- Primary Tear of right acetabular labrum, subsequent encounter documented in this encounter [facility] note* Diagnosis Generalized abdominal pain- Primary Abdominal pain, generalized documented in this encounter [employer] Phone: evaluation note* Diagnosis Tear of right acetabular labrum, subsequent encounter- Primary documented in this encounter [facility] noteNort [employer] Other Evaluation noteNo InformationNouniversity hospital [employer] Other Evaluation note* Diagnosis S/P laparoscopic sleeve gastrectomy- Primary Bariatric surgery status Obesity, Class I, BMI 30-34.9 Obesity, unspecified Dietary counseling and surveillance Dietary surveillance and counseling documented in this encounter [facility] note* Diagnosis Tear of right acetabular labrum, subsequent encounter- Primary documented in this encounter [facility] note* Diagnosis Dental infection- Primary Acute apical periodontitis of pulpal origin documented in this encounter [employer]: evaluation note* Diagnosis Gastroesophageal reflux disease, unspecified whether esophagitis present- Primary Bariatric surgery status Weight disorder Other symptoms concerning nutrition, metabolism, and development Class 1 obesity with serious comorbidity and body mass index (BMI) of 31.0 to 31.9 in adult, unspecified obesity type S/P laparoscopic sleeve gastrectomy Bariatric surgery status Dietary counseling and surveillance Dietary surveillance and counseling documented in this encounter [facility] note* Diagnosis Gastroesophageal reflux disease without esophagitis- Primary Esophageal reflux documented in this encounter [facility] note* Diagnosis Gastroesophageal reflux disease without esophagitis- Primary Esophageal reflux S/P laparoscopic sleeve gastrectomy Bariatric surgery status documented in this encounter [facility] note* Diagnosis Regurgitation of food- Primary Gastroesophageal reflux disease, unspecified whether esophagitis present documented in this encounter [facility] note* Diagnosis Regurgitation of food Gastroesophageal reflux disease, unspecified whether esophagitis present documented in this encounter [facility] note* Diagnosis Gastroesophageal reflux disease without esophagitis Esophageal reflux documented in this encounter [facility] note* Diagnosis Gastroesophageal reflux disease, unspecified whether esophagitis present- Primary documented in this encounter [facility] note* Diagnosis Gastroesophageal reflux disease with esophagitis without hemorrhage- Primary RICHAR (obstructive sleep apnea) Obstructive sleep apnea (adult) (pediatric) Class 1 obesity with serious comorbidity and body mass index (BMI) of 33.0 to 33.9 in adult, unspecified obesity type S/P laparoscopic sleeve gastrectomy Bariatric surgery status Weight disorder Other symptoms concerning nutrition, metabolism, and development [facility] [place] [facility]* Diagnosis Pre-op evaluation- Primary Preoperative examination, [...] esophagitis without hemorrhage [facility] [place] [facility]* Diagnosis S/P bariatric surgery- Primary Bariatric surgery status Postoperative pain Other acute postoperative pain Primary osteoarthritis involving multiple joints [facility] [place] [facility]* Diagnosis S/P gastric surgery- Primary Other postprocedural status Dietary counseling Dietary surveillance and counseling [facility] [place] [facility]* Diagnosis Postoperative pain Other acute postoperative pain [facility] [place] [facility]* Diagnosis Acetabular labrum tear, right, subsequent encounter- Primary [facility] [place] [facility]* Diagnosis Esophageal dysphagia- Primary Dysphagia, pharyngoesophageal phase S/P gastric bypass Bariatric surgery status Postoperative malabsorption Other and unspecified postsurgical nonabsorption [facility] [place] [facility]* Diagnosis Esophageal dysphagia Dysphagia, pharyngoesophageal phase S/P gastric bypass Bariatric surgery status S/P bariatric surgery Bariatric surgery status [facility] [place] [facility] Diagnosis Polyarthralgia- Primary Pain in joint, multiple sites Malaise and fatigue Other malaise and fatigue Subjective fever S/P laparoscopic sleeve gastrectomy Bariatric surgery status History of syncope Other specified personal history presenting hazards to health History of adrenal insufficiency Personal history of other endocrine, metabolic, and immunity disorders Hypothyroidism, unspecified type [facility] [place] [facility]* Diagnosis Encounter to discuss test results- Primary Other specified counseling NO SHOW [facility] [place] [facility] Diagnosis Constipation, unspecified constipation type- Primary Nausea Nausea alone Rash of face Rash and other nonspecific skin eruption Enlarged lymph nodes Enlargement of lymph nodes [facility] [place] [facility]* Diagnosis Vernal conjunctivitis of both eyes- Primary documented in this encounter [facility] note* Diagnosis Rash and nonspecific skin eruption- Primary Rash and other nonspecific skin eruption Pain in eye, unspecified laterality Facial edema Edema documented in this encounter [facility] note* Diagnosis Encounter for surgical aftercare following surgery of digestive system- Primary Aftercare following surgery of the teeth, oral cavity and digestive system, NEC Impaired intestinal absorption Unspecified intestinal malabsorption Esophageal dysphagia Dysphagia, pharyngoesophageal phase Gastroesophageal reflux disease, unspecified whether esophagitis present S/P bariatric surgery Bariatric surgery status documented in this encounter [facility] note* Diagnosis ARSALAN (generalized anxiety disorder)- Primary Generalized anxiety disorder Panic disorder without agoraphobia Moderate recurrent major depression (HCC) Major depressive disorder, recurrent episode, moderate documented in this encounter [facility] note* Diagnosis Postoperative malabsorption- Primary Other and unspecified postsurgical nonabsorption S/P gastric bypass Bariatric surgery status Overweight (BMI 25.0-29.9) Overweight Dietary counseling and surveillance Dietary surveillance and counseling documented in this encounter [facility] note* Diagnosis ARSALAN (generalized anxiety disorder)- Primary Generalized anxiety disorder Panic disorder without agoraphobia Moderate recurrent major depression (HCC) Major depressive disorder, recurrent episode, moderate documented in this encounter [facility] note* Diagnosis Epigastric pain- Primary Abdominal pain, epigastric documented in this encounter [facility] note* Diagnosis Back strain, initial encounter- Primary documented in this encounter [facility] note* Diagnosis Generalized abdominal pain- Primary Abdominal pain, generalized documented in this encounter [facility] note* Diagnosis Nausea- Primary Nausea alone documented in this encounter [facility] note* Diagnosis Gastroesophageal reflux disease, unspecified whether esophagitis present documented in this encounter [facility] note* Diagnosis Generalized anxiety disorder documented in this encounter [facility] note* Diagnosis Nausea- Primary Nausea alone RUQ pain Abdominal pain, right upper quadrant History of cholecystectomy Other acquired absence of organ documented in this encounter [facility] note* Diagnosis Dehydration- Primary RUQ pain Abdominal pain, right upper quadrant documented in this encounter [facility] note* Diagnosis Right knee pain, unspecified chronicity- Primary documented in this encounter [facility] note* Diagnosis Post-operative pain- Primary Other acute postoperative pain 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 documented in this encounter [facility] note* Diagnosis Dehydration- Primary Nausea Nausea alone RUQ pain Abdominal pain, right upper quadrant documented in this encounter [facility] note* Diagnosis RUQ pain- Primary Abdominal pain, right upper quadrant Chronic nausea Nausea alone documented in this encounter [facility] note* Diagnosis Chronic nausea Nausea alone RUQ pain Abdominal pain, right upper quadrant documented in this encounter [facility] note* Diagnosis Abdominal pain, unspecified abdominal location- Primary documented in this encounter [facility] note* Diagnosis Generalized abdominal pain- Primary Abdominal pain, generalized documented in this encounter [facility] note* Diagnosis Nausea Nausea alone RUQ pain Abdominal pain, right upper quadrant History of cholecystectomy Other acquired absence of organ documented in this encounter [facility] note* Diagnosis 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 [facility] Work Phone: Evaluation note* Diagnosis Median arcuate ligament syndrome (CMS/HCC)- Primary Celiac artery compression syndrome PONV (postoperative nausea and vomiting) Nausea with vomiting RICHAR (obstructive sleep apnea) Obstructive sleep apnea (adult) (pediatric) Asthma Unspecified asthma Anxiety Anxiety state, unspecified Osteoarthritis Osteoarthrosis, unspecified whether generalized or localized, unspecified site Depression Depressive disorder, not elsewhere classified documented in this encounter [facility] [place] Work Phone: Evaluation note* Diagnosis Abdominal pain- Primary Abdominal pain, unspecified site Abdominal pain Abdominal pain, unspecified site Nausea and vomiting, unspecified vomiting type History of gastric bypass Median arcuate ligament syndrome (CMS/HCC) Celiac artery compression syndrome documented in this encounter [facility] [place] Work Phone: Evaluation note* Diagnosis Median arcuate ligament syndrome (CMS/HCC)- Primary Celiac artery compression syndrome documented in this encounter [facility] [place] Work Phone: Evaluation note* Diagnosis Bariatric surgery status- Primary Dietary zinc deficiency Mineral deficiency, not elsewhere classified Vitamin D deficiency Unspecified vitamin D deficiency documented in this encounter [facility] note* Diagnosis Gastroesophageal reflux disease, unspecified whether esophagitis present- Primary Constipation, unspecified constipation type documented in this encounter [facility] note* Diagnosis Nausea and vomiting, unspecified vomiting type- Primary documented in this encounter [facility] note* Diagnosis Neuralgia and neuritis- Primary Neuralgia, neuritis, and radiculitis, unspecified Gastroesophageal reflux disease without esophagitis Esophageal reflux 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 S/P gastric bypass Bariatric surgery status documented in this encounter [facility] note* Diagnosis ARSALAN (generalized anxiety disorder)- Primary Generalized anxiety disorder Panic disorder without agoraphobia Moderate recurrent major depression (HCC) Major depressive disorder, recurrent episode, moderate documented in this encounter [facility] note* Diagnosis Sudden onset of severe abdominal pain- Primary Abdominal pain, unspecified site Nausea and vomiting, unspecified vomiting type PEG (percutaneous endoscopic gastrostomy) status (HCC) Gastrostomy status documented in this encounter [facility] N[facility]ative - [facility] [employer] Other [employer] general Narrative - Reported* Type Description Date [...] hystectomy 2020 Hospitalization History childbirths Hospitalization History [facility] 2019 Hospitalization History salvador axel-gastritis 1 03/2020 [place] [employer] Other [employer] general Narrative - Reported* Type Description Date [...] repair 03/20/2021 Hospitalization History childbirths Hospitalization History [facility] 2019 Hospitalization History modesto reyna-gastritis 1 03/2020 [employer] Other History of Present illness Narrative* Sherry Magaña MD - 04/20/2023 3:45 PM EST And I had a phone conversation patient and I had a phone conversation as she was at home in the [facility] and I was [facility]. 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 Her substernal pain and dyspnea are relieved. She still has acid reflux symptoms related to her gastric bypass surgery. 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 I recommended that she take some oral antacids like Maalox prior to eating and to eat periodically throughthe day and small amounts of the calorie dense. She is agreeable to this. Overall she says she feels a little better compared to was in contact with 2 weeks ago she has seen her general surgeon at [facility] and will be following up with her gastro enterologist at the clinic. I will see her back by virtual visit in 2 months [facility] [place] [facility] course Narrative No data available for this section [facility]* Attachments The following attachments cannot be sent through Care Everywhere. * Uterine Fibroids ([place]) * Ovarian Cyst: Hemorrhagic ([place]) [facility] Attachments The following attachments cannot be sent through Care Everywhere. * Finger: Bruises ([place]) * Subungual Hematoma ([place]) [facility] Work Phone: Hospital Discharge instructions* Attachments The following attachments cannot be sent through Care Everywhere. * Abdominal Pain ([place]) [facility] Discharge instructions No data available for this section [facility] Attachments The following attachments cannot be sent through Care Everywhere. * Abdominal Pain ([place]) documented [facility] this [facility] Additional Instructions Please take medications as prescribed. Return to ER or follow-up with PCP or GI specialist if symptoms worsen. 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.[facility] Work Phone: Hospital Discharge instructions Additional Instructions Take the promethazine either orally or rectally as needed for nausea vomiting 1 oxycodone every 6 hours for severe pain Continue your other medication Try to drink good fluids such as water Gatorade Pedialyte Follow-up with your specialist tomorrow as scheduled Return to the ER for worsening pain high fever vomiting despite medication or any other concernsMiami [facility]tr Work Phone: Progress note No data available for this section [facility] for referral (narrative)* Consultation (Routine) - New Request Specialty Diagnoses / Procedures Referred By Contac t Referred To Contact [facility] Diagnoses Articular [place] [address] [place] [phone] Referral ID Status Reason Start Date Expiration Date V isits Requested Visits Authorized [id number] New Request 06/02/2021 06/27/[address] [facility] for referral (narrative)* Diagnostic Procedure Only (Routine) - Closed Specialty Diagnoses / Procedures Referred By Contac t Referred To Contact XR IMAGING Diagnoses Acetabular labrum tear, right, initial encounter Procedures XR HIP GENERAL 3V PELV/AP/LAT RIGHT RADEX HIP UNILATERAL WITH PELVIS 2-3 VIEWS Kuldip Yousif MD [address] [place] [address] Xr Imaging Referral ID Status Reason Start Date Expiration Date V isits Requested Visits Authorized [id number] Closed Auto-Generate d Referral 06/18/2021 07/18/2022 1 1 [facility] for referral (narrative)* Outpatient Procedure (Routine) - Pending Review Specialty Diagnoses / Procedures Referred By [facility] Referred To Contact [facility] Diagnoses Gastroesophageal reflux disease without esophagitis Procedures EGD - THERAPEUTIC, EUS, OR TUBE INTERVENTIONS ESOPHAGOGASTRODUODENOSC OPY [place] [address] [place] [address] [facility] [address] [place] [address] Referral ID Status Reason Start Date Expiration Date Visits Requested Visits Authorized [id number] Pending Review Auto-Generat ed Referral 11/17/2021 11/17/2022 1 1 [facility] for referral (narrative)* Outpatient Procedure (Routine) - Authorized Specialty Diagnoses / Procedures Referred By [facility] Referred To Contact [facility] Diagnoses Gastroesophageal reflux disease without esophagitis S/P laparoscopic sleeve gastrectomy Procedures PH IMPEDANCE INSERT OFF MEDS ESOPHGL FUNCJ G-ESOP RFLX IMPD Breanna Bhatti APRN.APPLICATION SECURITY ARCHITECT [address] [place] [address] [place] [phone] Referral ID Status Reason Start Date Expiration Date Visits Requested Visits Authorized [id number] Authorized Auto-Generat ed Referral 11/19/2021 11/18/2022 1 1 [facility] for referral (narrative)* Outpatient Procedure (Routine) - Pending Review Specialty Diagnoses / Procedures Referred By [facility] Referred To Contact [facility] Diagnoses Regurgitation of food Gastroesophageal reflux disease, unspecified whether esophagitis present Procedures PH HUERTA INSERT OFF MEDS GASTROESOPHAG REFLX TEST W/TELEMTRY PH Breanna Hernandez APRN.APPLICATION SECURITY ARCHITECT [address] [place] [address] [facility] [address] [place] [id number] Referral ID Status Reason Start Date Expiration Date Visits Requested Visits Authorized [id number] Pending Review Auto-Generat ed Referral 2 12/17/2022 1 1 [facility] for referral (narrative)* Outpatient Procedure (Routine) - Closed Specialty Diagnoses / Procedures [facility] Diagnoses Gastroesophageal reflux disease without esophagitis Procedures EGD - THERAPEUTIC, EUS, OR TUBE INTERVENTIONS ESOPHAGOGASTRODUODENOSC OPY [place] [address] [place] [address] [address] Referral ID Status Reason Start Date Expiration Date V isits Requested Visits Authorized [id number] Closed Auto-Generate d Referral 11/17/2021 11/17/2022 1 1 [facility] for referral (narrative)* Outpatient Procedure (Routine) - Pending Review Specialty Diagnoses / Procedures Referred By Contac t Referred To Contact [facility] Diagnoses Pre-op evaluation Procedures ECG COMPLETE ECG ROUTINE ECG W/LEAST 12 LDS W/I&R Ioana Hogan PA-C [address] [place] [address] [facility] [place] [address] [place] [id number] Referral ID Status Reason Start Date Expiration Date Visits Requested Visits Authorized [id number] Pending Review Auto-Generat ed Referral 2 01/28/2023 1 1 [facility] for referral (narrative)* Outpatient Procedure (Routine) - Authorized Specialty Diagnoses / Procedures Referred By Contac t Referred To Contact [facility] Diagnoses Esophageal dysphagia S/P gastric bypass Procedures EGD - THERAPEUTIC, EUS, OR TUBE INTERVENTIONS EGD BALLOON DILATION ESOPHAGUS <30 MM DIAM Breanna Stern APRN.APPLICATION SECURITY ARCHITECT [address] [place] [address] [address] Referral ID Status Reason Start Date Expiration Date Visits Requested Visits Authorized [id number] Authorized Auto-Generat ed Referral 03/05/2022 03/05/2023 1 1 [facility] for referral (narrative)* Outpatient Procedure (Routine) - Closed Specialty Diagnoses / Procedures Referred By Jazmine t Referred To Contact [facility] Diagnoses Esophageal dysphagia S/P gastric bypass Procedures EGD - THERAPEUTIC, EUS, OR TUBE INTERVENTIONS EGD BALLOON DILATION ESOPHAGUS <30 MM DIAM Breanna Stern APRN.CNP [address] [place] [id number] [place] [phone] Referral ID Status Reason Start Date Expiration Date V isits Requested Visits Authorized [id number] Closed Auto-Generate d Referral 03/05/2022 03/05/2023 1 1 [facility] for referral (narrative)* Outpatient Procedure (Routine) - Pending Review Specialty Diagnoses / Procedures Referred By Contac t Referred To Contact [facility] Diagnoses Constipation, unspecified constipation type Procedures [facility] ANORECTAL MANOMETRY ANORECTAL MANOMETRY Kasie Avalos MD [address] [place] [address] [place] [phone] Referral ID Status Reason Start Date Expiration Date Visits Requested Visits Authorized [id number] Pending Review Auto-Generat ed Referral 07/22/2022 07/23/2023 1 1 [facility] for referral (narrative)* Diagnostic Procedure Only (Routine) - Pending Review Specialty Diagnoses / Procedures [facility] To Contact XR IMAGING Diagnoses S/P bariatric surgery Gastroesophageal reflux disease, unspecified whether esophagitis present Procedures XR UPPER GI ROUTINE DOUBLE CONTRAST/AIR RADIOLOGIC EXAM UPR GI TRC DOUBLE CONTRAST STUDY Breanna Stern APRN.CNP [address] [place] [address] Xr Imaging Referral ID Status Reason Start Date Expiration Date Visits Requested Visits Authorized [id number] Pending Review Auto-Generat ed Referral 09/18/2022 10/18/2023 1 1 [facility] for referral (narrative)* Outpatient Procedure (Routine) - Authorized Specialty Diagnoses / Procedures [facility] Diagnoses Epigastric pain Procedures EGD DIAGNOSTIC ESOPHAGOGASTRODUODENOSC OPY [place] [address] [place] [address] [facility] [place] [address] [place] [phone] Referral ID Status Reason Start Date Expiration Date Visits Requested Visits Authorized [id number] Authorized Auto-Generat ed Referral 10/20/2022 10/21/2023 1 1 T [facility] for referral (narrative)* Diagnostic Procedure Only (Routine) - Closed Specialty Diagnoses / Procedures [facility] Referred To Contact US IMAGING Diagnoses Nausea RUQ pain History of cholecystectomy Procedures US ABD RIGHT UPPER QUADRANT US ABDOMINAL REAL [place] W/[place] [address] [place] [phone] Us Imaging [facility] Referral ID Status Reason Start Date Expiration Date V isits Requested Visits Authorized [id number] Closed Auto-Generate d Referral 11/04/2022 12/04/2023 1 1 * Diagnostic Procedure Only (Routine) - Authorized Specialty Diagnoses / Procedures Referred By Contact Referred To Contact [facility] Diagnoses Nausea RUQ pain History of cholecystectomy Procedures NM HEPATOBILIARY W EF AND/OR RX HEPATOBIL SYST IMAG INC GB W/[place] [address] [place] [address] [facility] [address] [phone] Referral ID Status Reason Start Date Expiration Date Visits Requested Visits Authorized [id number] Authorized Auto-Generat ed Referral 11/04/2022 12/04/2023 1 1 [facility] for referral (narrative)* Diagnostic Procedure Only (Routine) - Pending Review Specialty Diagnoses / Procedures Referred By Contac t Referred To Contact XR IMAGING Diagnoses Right knee pain, unspecified chronicity Procedures XR KNEE GENERAL 4V AP BOTH/PA BOTH/LAT/MERC RIGHT RADIOLOGIC EXAM KNEE COMPLETE 4/MORE VIEWS Agustin Salmeron PA-C [address] [place] [phone] Xr Imaging [place] [address] Referral ID Status Reason Start Date Expiration Date Visits Requested Visits Authorized [id number] Pending Review Auto-Generat ed Referral 11/04/2022 12/04/2023 1 1 [facility] for referral (narrative)* Outpatient Procedure (Urgent) - Authorized Specialty Diagnoses / Procedures Referred By Contac t Referred [facility] Diagnoses Chronic nausea RUQ pain Procedures US MESENTERIC ARTERY CMPLT VAS LAB DUP-SCAN ARTL TIARA ABDL/PEL/SCROT&/[place] [address] [place] [address] [facility] [place] [address] [place] [address] Referral ID Status Reason Start Date Expiration Date Visits Requested Visits Authorized [id number] Authorized Auto-Generat ed Referral 11/23/2022 11/23/2023 1 1 [facility] for referral (narrative)* Outpatient Procedure (Urgent) - Closed Specialty Diagnoses / Procedures Referred By Andriyac t Referred To Contact [facility] Diagnoses Chronic nausea RUQ pain Procedures US MESENTERIC ARTERY CMPLT VAS LAB DUP-SCAN ARTL TIARA ABDL/PEL/SCROT&/[place] [address] [place] [address] [facility] [place] [address] Referral ID Status Reason Start Date Expiration Date V isits Requested Visits Authorized [id number] Closed Auto-Generate d Referral 11/23/2022 11/23/2023 1 1 [facility] for referral (narrative)* Diagnostic Procedure Only (Routine) - Closed Specialty Diagnoses / Procedures Referred By Jazmine hooks Referred To Contact US IMAGING Diagnoses Nausea RUQ pain History of cholecystectomy Procedures US ABD RIGHT UPPER QUADRANT US ABDOMINAL REAL TIME W/[place] [address] [place] [address] Us Imaging [facility]95 Referral ID Status Reason Start Date Expiration Date V isits Requested Visits Authorized [id number] Closed Auto-Generate d Referral 11/04/2022 12/04/2023 1 1 T [facility] for referral (narrative)* Outpatient Procedure (Routine) - Authorized Specialty Diagnoses / Procedures Referred By Contac t Referred To Contact [facility] Diagnoses Gastroesophageal reflux disease, unspecified whether esophagitis present Procedures PH HUERTA INSERT ON MEDS GASTROESOPHAG REFLX TEST W/TELEMTRY PH Kasie Sherman MD [address] [place] [phone] [address] [address] Referral ID Status Reason Start Date Expiration Date Visits Requested Visits Authorized [id number] Authorized Auto-Generat ed Referral 04/28/2023 04/27/2024 1 1 * Outpatient Procedure (Routine) - Authorized Specialty Diagnoses / Procedures Referred By Contac t Referred To [facility] Diagnoses Gastroesophageal reflux disease, unspecified whether esophagitis present Procedures EGD - THERAPEUTIC, EUS, OR TUBE INTERVENTIONS ESOPHAGOGASTRODUODENOSC OPY TRANSORAL DIAGNOSTIC Kasie Avalos MD [address] [place] [address] [address] Referral ID Status Reason Start Date Expiration Date Visits Requested Visits Authorized [id number] Authorized Auto-Generat ed Referral 04/28/2023 04/27/2024 1 1 [facility] for visit NarrativeGeneral Surgery Referral [facility] [facility] [employer] Other Reason for visit Narrative* Outpatient Procedure (Routine) - Closed Specialty Diagnoses / Procedures Referred By Contac t Referred To [facility] Diagnoses Gastroesophageal reflux disease without esophagitis Procedures EGD - THERAPEUTIC, EUS, OR TUBE INTERVENTIONS ESOPHAGOGASTRODUODENOSC OPY [place] [address] [place] [address] [address] Referral ID Status Reason Start Date Expiration Date V isits Requested Visits Authorized [id number] Closed Auto-Generate d Referral 11/17/2021 11/17/2022 1 1 [facility] for visit Narrative* Outpatient Procedure (Routine) - Closed Specialty Diagnoses / Procedures Referred By Contac t Referred To [facility] Diagnoses Esophageal dysphagia S/P gastric bypass Procedures EGD - THERAPEUTIC, EUS, OR TUBE INTERVENTIONS EGD BALLOON DILATION ESOPHAGUS <30 MM DIAM Breanna Stern, SLIM.APPLICATION SECURITY ARCHITECT [address] [place] [address] [facility] [place] [address] [id number] Referral ID Status Reason Start Date Expiration Date V isits Requested Visits Authorized [id number] Closed Auto-Generate d Referral 03/05/2022 03/05/2023 1 1 [facility] for visit Narrative* Outpatient Procedure (Urgent) - Closed Specialty Diagnoses / Procedures Referred By Contac t Referred To Contact [facility] Diagnoses Chronic nausea RUQ pain Procedures US MESENTERIC ARTERY CMPLT VAS LAB DUP-SCAN ARTL TIARA ABDL/PEL/SCROT&/[place] [address] [address] [id number] [facility] [address] [address] Referral ID Status Reason Start Date Expiration Date V isits Requested Visits Authorized [id number] Closed Auto-Generate d Referral 11/23/2022 11/23/2023 1 1 [facility] for visit Narrative* Diagnostic Procedure Only (Routine) - Closed Specialty Diagnoses / Procedures Referred By Jazmine t Referred To Contact US IMAGING Diagnoses Nausea RUQ pain History of cholecystectomy Procedures US ABD RIGHT UPPER QUADRANT US ABDOMINAL REAL [place] W/[place] [address] [place] [address] Us Imaging [facility] Referral ID Status Reason Start Date Expiration Date V isits Requested Visits Authorized [id number] Closed Auto-Generate d Referral 11/04/2022 12/04/2023 1 1 [facility] Summary Purpose Family History No Family History Records Found Relationship Condition Age at Onset Recorded Date/T fabiano father Hypothyroidism Unknown Not Specified Family history of mental disorder Unknow n Hypertension Unknown Diabetes mellitus Unknown Advance Directives No Advanced Directives Records FoundDocuments on File Type Date Recorded 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 Therapy 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 anation Advance Directive(s) 03/13/2021 9:49 AM Date Activated Date Inactivated Comments 12/06/2022 9:37 PM 12/09/2022 8:48 PM Question Answer Comments Full Code Order Discussed With: Patient Date Activated Date Inactivated Comments 11/22/2022 8:03 PM 11/23/2022 5:11 PM Question Answer Comments Full Code Order Discussed With: Patient Documents on File Type Date Recorded 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 Therapy 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 anation Advance Directive(s) 03/13/2021 9:49 AM [...] Documents on File Type Date Recorded 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 Therapy 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 anation Advance Directive(s) 07/04/2021 4:13 PM [...] Documents on File Type Date Recorded 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 Therapy 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 anation Advance Directive(s) 03/13/2021 9:49 AM [...] Advance Directives No October 02, 2019 1:10pm Latest Code Status on File Code Status Date Activated Date Inactivated Comments Full Code 03/05/2023 2:37 PM Question Answer Comments Plan of Care: Code Status Discussion Completed Decision Maker: Patient Latest Code Status on File Code Status Date Activated Date Inactivated Comments Full Code 03/05/2023 2:37 PM Question Answer Comments Plan of Care: Code Status Discussion Completed Decision Maker: Patient Date Activated Date Inactivated Comments 12/06/2022 9:37 PM 12/09/2022 8:48 PM Question Answer Comments Full Code Order Discussed With: Patient Date Activated Date Inactivated Comments 11/22/2022 8:03 PM 11/23/2022 5:11 PM Question Answer Comments Full Code Order Discussed With: Patient Date Activated Date Inactivated Comments 05/26/2023 3:55 PM Date Activated Date Inactivated Comments 05/19/2023 1:17 PM 05/22/2023 4:56 PM Date Activated Date Inactivated Comments 12/06/2022 9:37 PM 12/09/2022 8:48 PM Question Answer Comments Full Code Order Discussed With: Patient Date Activated Date Inactivated Comments 11/22/2022 8:03 PM 11/23/2022 5:11 PM Question Answer Comments Full Code Order Discussed With: Patient Date Activated Date Inactivated Comments 05/26/2023 3:55 PM 05/28/2023 4:02 PM Advance Directive Response Recorded Date/ Time Advance Directives No October 02, 2019 2:10pm Date Activated Date Inactivated Comments 06/06/2023 10:22 PM 06/09/2023 4:19 PM Date Activated Date Inactivated Comments 05/26/2023 3:55 PM 05/28/2023 4:02 PM Date Activated Date Inactivated Comments 05/19/2023 1:17 PM 05/22/2023 4:56 PM Date Activated Date Inactivated Comments 12/06/2022 9:37 PM 12/09/2022 8:48 PM Date Activated Date Inactivated Comments 11/22/2022 8:03 PM 11/23/2022 5:11 PM Question Answer Comments Full Code Order Discussed With: Patient Discharge Instructions * Attachments The following attachments cannot be sent through Care Everywhere. * Abdominal Pain with Follow Up in 24 Hours ([facility]) ([place]) documented in this encounter Assessments Diagnosis Lower abdominal pain- Primary Abdominal pain, other specified site Reason for Referral Status Reason Specialty Diagnoses / Procedures Referre d By Contact Referred To Contact Closed Procedures US PELVIC WITH TRANSVAGINAL WITH DOPPLER Juanito Laird PA-C [address] [facility] [address] Specialty Diagnoses / Procedures Referred By Contact Referred To Contact [facility] Diagnoses Tear of right acetabular labrum, subsequent encounter Procedures CONSULT TO PHYSICAL THERAPY PHYSICAL THERAPY EVALUATION HIGH COMPLEX 45 MINS Justine Shabazz PA-C [address] [place] [address] [facility] [place] [address] [place] [id number] Referral ID Status Reason Start Date Expiration Date Visits Requested Visits Authorized [id number] Pending Review Auto-Generat ed Referral 06/23/2021 06/23/2022 1 1 Reason 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 - Please request Dr. Keven Gomez [phone] Diagnosis 1 Hernia (K46.9) Referral Organization [facility] Priscila Guo Referring Provider First Name Shanna Referring Provider Last Name Slade Referring Provider Specialty Nurse Pract itioner Referred Organization [facility] Referred Address [address] [facility],[place],[address] Referred Provider Specialty General Surg ammon Referral Priority Routine Specialty Diagnoses / Procedures Referred By Jazmine hooks Referred To Contact Diagnoses S/P laparoscopic sleeve gastrectomy Procedures CONSULT TO BARIATRIC NUTRITION OFFICE/OUTPATIENT ON LICENSE OF [facility] MDM 60-74 MINUTES Sabina Joy APRN.APPLICATION SECURITY ARCHITECT [address] [place] [address] Referral ID Status Reason Start Date Expiration Date Visits Requested Visits Authorized [id number] Pending Review PCP Requested Referral 10/09/2021 10/09/2022 [...] BARIATRIC ESOPHAGOGASTRODUODENOSCO PY TRANSORAL DIAGNOSTIC Sabina Joy APRN.APPLICATION SECURITY ARCHITECT [address] [place] [address] [facility] [place] [address] [place] [id number] Referral ID Status Reason Start Date Expiration Date Visits Requested Visits Authorized [id number] Pending Review Auto-Generat ed Referral 10/09/2021 10/09/2022 1 1 Specialty Diagnoses / Procedures Referred By Contac t Referred To Contact Diagnoses RICHAR (obstructive sleep apnea) Procedures CONSULT TO SLEEP MEDICINE - ADULT OFFICE/OUTPATIENT [facility] 60-74 MINUTES Sabina Joy APRN.APPLICATION SECURITY ARCHITECT [address] [id number] Referral ID Status Reason Start Date Expiration Date Visits Requested Visits Authorized [id number] Authorized PCP Requested Referral 2 01/02/2023 1 1 Specialty Diagnoses / Procedures Referred By Contac t Referred To Contact [facility] Diagnoses S/P bariatric surgery Primary osteoarthritis involving multiple joints Procedures CONSULT TO PHYSICAL THERAPY PHYSICAL THERAPY EVALUATION HIGH COMPLEX 45 MINS Breanna Stern APRN.APPLICATION SECURITY ARCHITECT [address] [id number] [facility] [place] [address] [place] [address] Referral ID Status Reason Start Date Expiration Date Visits Requested Visits Authorized [id number] Pending Review Auto-Generat ed Referral 2 02/03/2023 1 1 Specialty Diagnoses / Procedures Referred By Contac t Referred To Contact Endocrinology Diagnoses History of adrenal insufficiency Hypothyroidism, unspecified type Procedures CONSULT TO ENDOCRINOLOGY OFFICE/OUTPATIENT [facility] 60-74 MINUTES Ciara Bello PA-C [address] [place] [address] Referral ID Status Reason Start Date Expiration Date Visits Requested Visits Authorized [id number] Authorized PCP Requested Referral 06/12/2022 06/12/2023 1 1 Specialty Diagnoses / Procedures Referred By Contac t Referred To Contact Allergy Diagnoses Rash and nonspecific skin eruption Pain in eye, unspecified laterality Facial edema Procedures CONSULT TO ALLERGY/IMMUNOLOGY OFFICE/OUTPATIENT [facility] 60-74 MINUTES Bernardo Brenner MD [address] [phone] Referral ID Status Reason Start Date Expiration Date Visits Requested Visits Authorized [id number] Authorized PCP Requested Referral 07/28/2022 07/28/2023 1 1 Specialty Diagnoses / Procedures Referred By Contac t Referred To Contact CT IMAGING Diagnoses Generalized abdominal pain Procedures CTA ABD/PEL W IVCON CT ANGIO ABD&PLVIS CNTRST MTRL W/WO CNTRST Agustin Piper MD [id number] [facility] [place] [address] Referral ID Status Reason Start Date Expiration Date Visits Requested Visits Authorized [id number] Authorized Auto-Generat ed Referral 01/17/2023 1 1 Specialty Diagnoses / Procedures Referred By Contac t Referred To Contact Home Health Services Diagnoses Median arcuate ligament syndrome (CMS/HCC) Alicia Toro, BRANCH SERVICE ASSOCIATE-APPLICATION SECURITY ARCHITECT [address] [place] [address] Referral ID Status Reason Start Date Expiration Date Visits Requested Visits Authorized [id number] Authorized Specialty Services Required 03/08/2023 03/07/2024 999 999 Medications Administered Section Inactive Administered Medications - up to 3 most recent administrations Medication Order MAR Action Action Date Dose Rate Site benzocaine 20% (TOPEX) TOPICAL, X (OR/PROCEDURE) PRN, Starting on Heena 12/25/21 at 0939, Until Heena 12/25/21 at 0939, Intraprocedure Given 12/25/2021 9:39 AM EST 1 [place] Meperidine (PF) injection (DEMEROL) X (OR/PROCEDURE) PRN, [...] Reason for Visit Chief Complaint nausea, vomitng Chief Complaint nausea, vomitng unable to eat or drink Chief Complaint unable to eat or dri nk unable to urinate Additional Source Comments INFORMATION SOURCE (unrecogn ized section and content) DATE CREATED AUTHOR 09/11/2017 [facility] DATE CREATED AUTHOR AUTHOR'S ORGANIZ ATION 06/03/2021 [facility] DATE CREATED AUTHOR AUTHOR'S ORGANIZ ATION 06/24/2022 [facility] DATE CREATED AUTHOR AUTHOR'S ORGANIZ ATION 11/01/2022 [facility] DATE CREATED AUTHOR AUTHOR'S ORGANIZ ATION 11/07/2022 [facility] DATE CREATED AUTHOR AUTHOR'S ORGANIZ ATION 11/22/2022 [facility] DATE CREATED AUTHOR AUTHOR'S ORGANIZ ATION 11/29/2022 [facility] DATE CREATED AUTHOR AUTHOR'S ORGANIZ ATION 12/16/2022 [facility] DATE CREATED AUTHOR AUTHOR'S ORGANIZ ATION 02/12/2023 [facility] DATE CREATED AUTHOR AUTHOR'S ORGANIZ ATION 02/18/2023 [facility] DATE CREATED AUTHOR AUTHOR'S ORGANIZ ATION 04/21/2023 [facility] DATE CREATED AUTHOR AUTHOR'S ORGANIZ ATION 06/08/2023 [facility] DATE CREATED AUTHOR AUTHOR'S ORGANIZ ATION 06/09/2023 [facility] DATE CREATED AUTHOR AUTHOR'S ORGANIZ ATION 06/10/2023 [facility] DATE CREATED AUTHOR AUTHOR'S ORGANIZ ATION 06/11/2023 [facility] DATE CREATED AUTHOR AUTHOR'S ORGANIZ ATION 06/19/2023 [facility] DATE CREATED AUTHOR AUTHOR'S ORGANIZ ATION 06/19/2023 [facility] DATE CREATED AUTHOR AUTHOR'S ORGANIZ ATION 06/20/2023 [facility] Reason for Visit (unrecogniz ed section and content) Reason Comments Abdominal Pain RUQ abdominal pain t hat is spreading across her back and into the left side. pt states that she does not have a gallbladder or appendix and has been treated by [facility] recently for bowel adhesions and it is just getting worse. 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't pneumatic riveter anything Reason Comments Follow-up Pt presents for [...] MEDS GASTROESOPHAG REFLX TEST W/TELEMTRY PH Breanna Hernandez, BRANCH SERVICE ASSOCIATE.APPLICATION SECURITY ARCHITECT [address] [place] [address] [facility] [place] [address] [place] [address] Referral ID Status Reason Start Date Expiration Date V isits Requested Visits Authorized [id number] Closed Auto-Generate d Referral 12/25/2021 12/17/2022 1 [...] VIDEO PSYC/PSYL EST Self Pablo Lebron, PSYD [address] [phone] Referral ID Status Reason Start Date Expiration Date V isits Requested Visits Authorized [id number] Outside PCP 09/21/2022 12/20/2022 1 1 Reason Comments Anxiety Stress Specialty Diagnoses / Procedures Referred By Contac t Referred To Contact Psychology / ADULT PSYCHOLOGY Diagnoses Follow up Procedures VIDEO PSYC/PSYL EST Pablo Lebron, PSYD [address] [facility] [address] [phone] Pablo Lebron, PSYD [address] [address] [phone] Referral ID Status Reason Start Date Expiration Date V isits Requested Visits Authorized [id number] Pending Review 10/05/2022 01/03/2023 1 1 Reason [...] CT scans showing possible kidney stones near [facility], here today because hands turned brown [...] call Reason Comments Patient Question Patient Update Specialty Diagnoses / Procedures Referred By Contac t Referred To Contact Diagnoses Median arcuate ligament syndrome (CMS/HCC) 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] Procedures NE UNLISTED PX ABDOMEN MUSCULOSKELETAL SYSTEM Release Median Arcuate Ligament [place] [address] [place] [address] [place] [address] [place] [address] Referral ID Status Reason Start Date Expiration Date Visits Re quested Visits Authorized [id number] 1 1 Reason Comments Abdominal Pain Specialty Diagnoses / Procedures [facility] To Contact Diagnoses Abdominal pain History of gastric bypass Nausea and vomiting, unspecified vomiting type nausea and vomiting [place] [address] [place] [address] [facility] [address] [address] [place] [address] Referral ID Status Reason Start Date Expiration Date Visits Re quested Visits Authorized [id number] 1 1 Reason Comments Weight Loss Surgery Reason Comments Established Patient Reason Comments Appointment Cancel EGD Reason Comments Patient Question Reason Comments Vomiting Reason Comments Patient Education History Department Chair - Other Reason Onset Date Comments Refill Request 05/28/2023 Reason Comments Medication Problem Reason Comments Anxiety Stress Mood Fatigue Specialty Diagnoses / Procedures [facility] Referred To Contact Psychology / ADULT PSYCHOLOGY Diagnoses follow up Procedures VIDEO PSYC/PSYL EST Pablo Lebron PSYD [address] [place] [address] Pablo Lebron PSYD [address] [place] [address] Referral ID Status Reason Start Date Expiration Date V isits Requested Visits Authorized [id number] Pending Review 06/09/2023 09/07/2023 1 1 Reason Comments Patient Update Patient Question Reason Comments Post Op Follow Up PEG-J placement Altagracia Arnett RN - 01/30/2020 5:34 PM Jennifer Barker RN - 01/30/2020 5:15 PM Agustin Flores MD - 01/30/2020 1:37 PM ESTSAltagracia doe RN - 01/30/2020 1:33 PM EST ED Notes (unrecognized secti on and content) Pt placed on continuous pulse ox Pt with call light on, pt states that her nausea and pain are getting worse. Pt laying supine on cart, no distress noted. Emergency Department Report [facility] EMERGENCY DEPARTMENT Service Date:.01/30/20 PCP: Shanna June Chief Complaint: Chief Complaint Patient presents with Abdominal Pain RUQ abdominal pain that is spreading across her back and into the left side. pt states that she does not have a gallbladder or appendix and has been treated by [facility] recently for bowel adhesions and it is [...] file Gets together: Not on file Attends restoration service: Not on file Active member of [...] with a prescription of Zofran and some [place] to help with some of the discomfort. [...] 1400 1411 (Given - Provid er: Nabila Urbauer, RN) hydroCODone-acetaminophen (NORCO) 5-325 MG per tablet [...] IntraVENous, ONCE, 1 dose, On 07/27/21 at 1030, If oral and IV narcotics [...] Devyn Gottlieb RN) Scheduled Medication Order 10/29/2022 10/30/2022 10/31/2022 ketorolac (TORADOL) injection 30 mg (COMPLETED) 30 [...] 4 mg, Intravenous, ONCE, 1 dose, On Wed11/02/22 at 1400 1319 (Given - Provid er: Agustin Flores RN) Sodium chloride 0.9% IV solution 2,000 mL (COMPLETED) 2,000 mL, Intravenous, ONCE, 1 dose, On 11/02/22 at 1130 1112 ($$New Bag$$ - Provider: Agustin Flores RN)1320 (Stopped - Provider: Agustin Flores RN) Scheduled Medication Order 03/08/2023 03/09/2023 03/10/2023 alteplase (Cathflo Activase) injection 1 mg (COMPLETED) 1 mg, intra-catheter, Once, On Wed03/09/23 at 0615, For 1 dose, For occluded catheter ports. Instill 2 mg into each port, and retain for 0.5 - 2 hours. May repeat if catheter remains occluded. Dilute each 2 mg vial with 2.2 mL sterile water to give 1 mg/mL final concentration. Swirl gently to mix; do not shake. 0614 (Given - Provider: Danny Middlteon RN) busPIRone (Buspar) tablet 10 mg 10 mg, oral, 2 times daily, First dose on Wed03/05/23 at 2100 0840 (Given - Provider: Cole Nuñez RN)2122 (Given - Provider: Danny Middleton RN) 08 (Given - Provider: Nadia Zee RN)2000 (Given - Provider: Eileen Austin RN) 09 (Given - Provider: Nadia Zee RN)2100 (Due) enoxaparin (Lovenox) syringe 40 mg 40 mg, subcutaneous, Daily, First dose on Wed03/06/23 at 1130 0840 (Given - Provider: Cole Nuñez RN) 0821 (Given - Provider: Nadia Zee RN) 09 (Given - Provider: Nadia Zee RN) escitalopram (Lexapro) tablet 20 mg 20 mg, oral, Daily, First dose on Wed03/06/23 at 0900 0840 (Given - Provider: Cole Nuñez RN) 0821 (Given - Provider: Nadia Zee RN) 09 (Given - Provider: Nadia Zee RN) famotidine (Pepcid) tablet 20 mg(Linked Group 1) 20 mg, oral, 2 times daily, First dose (after last modification) on Wed03/05/23 at 2100 0840 (Given - Provider: Cole Nuñez RN)2121 (Given - Provider: Danny Middleton RN) 0821 (Given - Provider: Nadia Zee RN)2000 (Given - Provider: Eileen Austin, DEE) 09 (Given - Provider: Nadia Zee RN)2099 (Due) famotidine PF (Pepcid) injection 20 mg(Linked Group 1) 20 mg, intravenous, 2 times daily, First dose (after last modification) on Wed03/05/23 at 2100, Give if unable to take by mouth or feeding tube. 0840 (See Alternative - Provider: Cole Nuñez RN)2122 (See Alternative - Provider: Danny Middleton RN) 0821 (See Alternative - Provider: Nadia Zee RN)2000 (See Alternative - Provider: Eileen Austin RN) 901 (See Alternative - Provider: Nadia Zee RN)2099 (Due) ferrous sulfate (325 mg ferrous sulfate) tablet 1 tablet 1 tablet, oral, Daily with breakfast, First dose on Wed03/06/23 at 0800 0840 (Given - Provider: Cole Nuñez RN) 0820 (Given - Provider: Nadia Zee RN) 0858 (Given - Provider: Nadia Zee RN) insulin lispro (HumaLOG) injection 0-5 Units 0-5 Units, subcutaneous, Every 4 hours, First dose on Wed03/05/23 at 1500, Insulin Lispro Corrective Scale #1 Hypoglycemia protocol Call LIP unit(s) if Blood Glucose is between 0 - 70 mg/dL 0 unit(s) if Blood glucose is between 71-150 1 unit(s) if Blood glucose is between 151-200 2 unit(s) if Blood glucose is between 201-250 3 unit(s) if Blood glucose is between 251-300 4 unit(s) if Blood glucose is between 301-350 5 unit(s) if Blood glucose is between 351-400 Notify provider unit(s) if Blood Glucose is greater than 400 mg/dL 0000 (Not Given - Provider: Olga Paz RN - Reason: Contraindicated - Comment: bs 102)0400 (Not Given - Provider: Olga Paz RN - Reason: Contraindicated - Comment: bs 97)0800 (Not Given - Provider: Cole Nuñze RN - Reason: Order parameters not met)1306 (Given - Provider: Cole Nuñez RN)1716 (Given - Provider: Cole Nuñez RN)2000 (Not Given - Provider: Danny Middleton RN - Reason: Contraindicated) 0000 (Not Given - Provider: Danny Middleton RN - Reason: Contraindicated)0400 (Not Given - Provider: Danny Middleton RN - Reason: Contraindicated)0800 (Not Given - Provider: Nadia Zee RN - Reason: Order parameters not met)1200 (Not Given - Provider: Nadia Zee RN - Reason: Order parameters not met)1600 (Not Given - Provider: Nadia Zee RN - Reason: Order parameters not met)2000 (Not Given - Provider: Eileen Austin RN - Reason: Change in vital signs - Comment: BS 84) 0000 (Not Given - Provider: Eileen Austin RN - Reason: Change in vital signs - Comment: bs 79)0400 (Not Given - Provider: Eileen Austin RN - Reason: Other - Comment: bs 84)0800 (Not Given - Provider: Nadia Zee RN - Reason: Order parameters not met)1200 (Not Given - Provider: Nadia Zee RN - Reason: Other)1600 (Due)1999 (Due) levothyroxine (Synthroid, Levoxyl) tablet 100 mcg 100 mcg, oral, Daily (0630), First dose on 03/06/23 at 0630 0551 (Given - Provider: Olga Paz RN) 0544 (Given - Provider: Danny Middleton RN) 0543 (Given - Provider: Eileen Austin RN) liothyronine (Cytomel) tablet 5 mcg 5 mcg, oral, Daily, First dose on 03/06/23 at 0900 0852 (Given - Provider: Cole Nuñez RN) 0823 (Given - Provider: Nadia Zee RN) 0907 (Given - Provider: Nadia Zee RN) mirtazapine (Remeron) tablet 15 mg 15 mg, oral, Nightly, First dose on Wed03/05/23 at 2100 2122 (Given - Provider: Danny Middleton RN) 2000 (Given - Provider: Eileen Austin, DEE) 2100 (Due) sennosides (Senokot) tablet 17.2 mg (CANCELED) 17.2 mg (2 tablet), oral, 2 times daily, First dose on Wed03/05/23 at 1445, Bowel Regimen - for prevention of constipation Hold for loose stools 0840 (Given - Provider: Cole Nuñez, RN)2122 (Given - Provider: Danny Middleton RN) 0900 (Not Given - Provider: Nadia Zee RN - Reason: Other - Comment: fx loose stool) topiramate (Topamax) tablet 50 mg 50 mg, oral, 2 times daily, First dose on Wed03/05/23 at 2100 0840 (Given - Provider: Cole Nuñez RN)2122 (Given - Provider: Danny Middleton RN) 0821 (Given - Provider: Nadia Zee RN)2000 (Given - Provider: Eileen Austin RN) 0907 (Given - Provider: Nadia Zee RN)2100 (Due) Continuous Medication Order 03/08/2023 03/09/2023 03/10/2023 sodium chloride 0.45 % with KCl 20 mEq/L infusion 75 mL/hr, intravenous, Continuous, Starting on Wed03/07/23 at 1645 0230 (Rate/Dose Verify - Provider: Olga Paz RN)0852 (New Bag - Provider: Cole Nuñez RN) 0145 (New Bag - Provider: Danny Middleton RN)1954 (New Bag - Provider: Eileen Austin, DEE) 0722 (New Bag - Provider: Eileen Austin, DEE) PRN Medication Order 03/08/2023 03/09/2023 03/10/2023 acetaminophen (Tylenol) oral liquid 650 mg(Linked Group 2) 650 mg, oral, Every 4 hours PRN, pain mild (1-3), first line, Starting on Wed03/05/23 at 1436, Give oral liquid per feeding tube if present. acetaminophen (Tylenol) suppository 650 mg(Linked Group 2) 650 mg, rectal, Every 4 hours PRN, pain mild (1-3), first line, Starting on Wed03/05/23 at 1436, Give rectally if unable to administer by mouth or feeding tube., If ordered PRN for pain, nurse is permitted to administer this medication for higher pain scores based on patient preference? Yes acetaminophen (Tylenol) tablet 650 mg(Linked Group 2) 650 mg, oral, Every 4 hours PRN, pain mild (1-3), first line, Starting on Wed03/05/23 at 1436, If ordered PRN for pain, nurse is permitted to administer this medication for higher pain scores based on patient preference? Yes albuterol 2.5 mg /3 mL (0.083 %) nebulizer solution 3 mL 3 mL, nebulization, Every 2 hour PRN, wheezing, shortness of breath, Starting on Wed03/07/23 at 0216 dextrose 10 % in water (D10W) infusion 0.3 g/kg/hr 82.1 kg (246.3 mL/hr), intravenous, Once as needed, For blood glucose less than 70 mg/dL after 30 minutes of intervention. Discontinue once blood glucose reaches 100 mg/dL., Starting on Wed03/05/23 at 1451, For 1 dose, Discontinue once blood glucose reaches 100 mg/dL. dextrose 50 % injection 25 g 25 g, intravenous, Every 15 min PRN, For blood glucose less than or equal to 40 mg/dL, Starting on Wed03/05/23 at 1451, May repeat until blood glucose level reaches 100 mg/dL or greater. Push 2 - 3 mL/minute if patient has secure IV access. diazePAM (Valium) injection 5 mg 5 mg, intravenous, Administer over 3 Minutes, Every 6 hours PRN, muscle spasms, Starting on Wed03/05/23 at 1528, Administer over 1-3 minutes, maximum rate is 5 mg per minute. 0101 (Given - Provider: Olga Paz RN)1006 (Given - Provider: Cole Nuñez, DEE)1716 (Given - Provider: Cole Nuñez RN) 0356 (Given - Provider: Danny Middleton RN)1012 (Given - Provider: Nadia Zee, DEE)1848 (Given - Provider: Nadia Zee, DEE) 0350 (Given - Provider: Eileen Austin RN) diphenhydramine-zinc acetate cream Topical, 3 times daily PRN, itching, Starting on Wed03/08/23 at 1251, Apply to affected area glucagon (Glucagen) injection 1 mg 1 mg, intramuscular, Every 15 min PRN, low blood sugar - see comments, For blood glucose less than or equal to 70 mg/dL and no IV access, Starting on Wed03/05/23 at 1451, Give until blood glucose is 100 mg/dL or greater. If patient DOES NOT HAVE secure IV access & patient is unconscious, NPO or is unable to eat or drink. HYDROmorphone (Dilaudid) injection 0.5 mg (CANCELED) 0.5 mg, intravenous, Every 2 hour PRN, pain severe (7-10), first line, Starting on Wed03/05/23 at 1436 0011 (Given - Provider: Olga Paz RN)0410 (Given - Provider: Olga Paz RN)0637 (Given - Provider: Olga Paz RN)0840 (Given - Provider: Cole Nuñez RN) HYDROmorphone (Dilaudid) injection 0.5 mg 0.5 mg, intravenous, Every 4 hours PRN, pain breakthrough, Starting on Wed03/08/23 at 1030 1426 (Given - Provider: Cole Nuñez RN)2126 (Given - Provider: Danny Middleton RN) 0145 (Given - Provider: Danny Middleton RN)0822 (Given - Provider: Nadia Zee RN)1338 (Given - Provider: Nadia Zee RN)1619 (Given - Provider: Nadia Zee RN) 0901 (Given - Provider: Nadia Zee RN) hydrOXYzine HCL (Atarax) tablet 25 mg 25 mg, oral, Daily PRN, anxiety, Starting on Wed03/05/23 at 1515 1301 (Canceled Entry - Provider: Cole Nuñez RN) hydrOXYzine HCL (Atarax) tablet 25 mg 25 mg, oral, Every 6 hours PRN, itching, Starting on Wed03/08/23 at 1251 1306 (Given - Provider: Cole Nuñez RN) ondansetron (Zofran) injection 4 mg(Linked Group 3) 4 mg, intravenous, Every 8 hours PRN, nausea/vomiting, first line, Starting on Wed03/05/23 at 1436, 1st Line. Give IV if patient is unable to take orally. If inadequate response within 60 minutes, proceed to next-line agent for same PRN reason or contact provider if no further options ordered. When administering via IV Push, administer over 3-5 minutes. 44 (Given - Provider: Danny Middleton RN)2000 (Given - Provider: Eileen Austin RN) 43 (See Alternative - Provider: Eileen Austin RN) ondansetron (Zofran) tablet 4 mg(Linked Group 3) 4 mg, oral, Every 8 hours PRN, nausea/vomiting, first line, Starting on Wed03/05/23 at 1436, 1st Line. Use oral route first, if possible. If inadequate response within 60 minutes, proceed to next-line agent for same PRN reason or contact provider if no further options ordered. 543 (See Alternative - Provider: Danny Middleton RN)2000 (See Alternative - Provider: Eileen Austin RN) 43 (Given - Provider: Eileen Austin RN) oxyCODONE-acetaminophen (Percocet) 5-325 mg per tablet 1 tablet 1 tablet, oral, Every 4 hours PRN, pain moderate (4-6), second line, Starting on Wed03/08/23 at 1020, If ordered PRN for pain, nurse is permitted to administer this medication for higher pain scores based on patient preference? Yes 0543 (Given - Provider: Eileen Austin RN) oxyCODONE-acetaminophen (Percocet) 5-325 mg per tablet 2 tablet 2 tablet, oral, Every 4 hours PRN, pain severe (7-10), first line, Starting on Wed03/08/23 at 1020, If ordered PRN for pain, nurse is permitted to administer this medication for higher pain scores based on patient preference? Yes 1119 (Given - Provider: Cole Nuñez RN)185 (Given - Provider: Cole Nuñez RN) 0544 (Given - Provider: Danny Middleton RN)110 (Given - Provider: Nadia Zee RN)1952 (Given - Provider: Eileen Austin, DEE) 0006 (Given - Provider: Eileen Austin, RN)1312 (Given - Provider: Nadia Zee RN) polyethylene glycol (Glycolax, Miralax) packet 17 g 17 g, oral, Daily PRN, constipation, Starting on 03/05/23 at 1514 prochlorperazine (Compazine) injection 10 mg(Linked Group 4) 10 mg, intravenous, Every 6 hours PRN, nausea/vomiting, first line, Starting on 03/06/23 at 1240, Give IV if patient is unable to take orally. 1119 (See Alternative - Provider: Cole Nuñez RN) 1622 (Given - Provider: Nadia Zee RN) 0902 (Given - Provider: Nadia Zee RN) prochlorperazine (Compazine) suppository 25 mg(Linked Group 4) 25 mg, rectal, Every 12 hours PRN, nausea/vomiting, first line, Starting on 03/06/23 at 1240, Give NE if patient is unable to take orally or receive by injection. 1119 (See Alternative - Provider: Cole Nuñez RN) 1622 (See Alternative - Provider: Nadia Zee RN) 0902 (See Alternative - Provider: Nadia Zee RN) prochlorperazine (Compazine) tablet 10 mg(Linked Group 4) 10 mg, oral, Every 6 hours PRN, nausea/vomiting, first line, Starting on 03/06/23 at 1240 1119 (Given - Provider: Cole Nuñez RN) 1622 (See Alternative - Provider: Nadia Zee RN) 0902 (See Alternative - Provider: Nadia Zee RN) Linked Groups Order Group 1: famotidine (Pepcid) tablet 20 mgJump to med 20 mg, oral, 2 times daily, First dose (after last modification) on Wed03/05/23 at 2100 Or famotidine PF (Pepcid) injection 20 mgJump to med 20 mg, intravenous, 2 times daily, First dose (after last modification) on Wed03/05/23 at 2100
Give if unable to take by mouth or feeding tube.
Group 2: acetaminophen (Tylenol) tablet 650 mgJump to med 650 mg, oral, Every 4 hours PRN, pain mild (1-3), first line, Starting on Wed03/05/23 at 1436
If ordered PRN for pain, nurse is permitted to administer this medication for higher pain scores based on patient preference? Yes Or acetaminophen (Tylenol) oral liquid 650 mgJump to med 650 mg, oral, Every 4 hours PRN, pain mild (1-3), first line, Starting on Wed03/05/23 at 1436
Give oral liquid per feeding tube if present.
Or acetaminophen (Tylenol) suppository 650 mgJump to med 650 mg, rectal, Every 4 hours PRN, pain mild (1-3), first line, Starting on Wed03/05/23 at 1436
Give rectally if unable to administer by mouth or feeding tube.
If ordered PRN for pain, nurse is permitted to administer this medication for higher pain scores based on patient preference? Yes Group 3: ondansetron (Zofran) tablet 4 mgJump to med 4 mg, oral, Every 8 hours PRN, nausea/vomiting, first line, Starting on Wed03/05/23 at 1436
1st Line. Use oral route first, if possible. If inadequate response within 60 minutes, proceed to next-line agent for same PRN reason or contact provider if no further options ordered.
Or ondansetron (Zofran) injection 4 mgJump to med 4 mg, intravenous, Every 8 hours PRN, nausea/vomiting, first line, Starting on Wed03/05/23 at 1436
1st Line. Give IV if patient is unable to take orally. If inadequate response within 60 minutes, proceed to next-line agent for same PRN reason or contact provider if no further options ordered. When administering via IV Push, administer over 3-5 minutes.
Group 4: prochlorperazine (Compazine) tablet 10 mgJump to med 10 mg, oral, Every 6 hours PRN, nausea/vomiting, first line, Starting on Wed03/06/23 at 1240 Or prochlorperazine (Compazine) injection 10 mgJump to med 10 mg, intravenous, Every 6 hours PRN, nausea/vomiting, first line, Starting on 03/06/23 at 1240
Give IV if patient is unable to take orally.
Or prochlorperazine (Compazine) suppository 25 mgJump to med 25 mg, rectal, Every 12 hours PRN, nausea/vomiting, first line, Starting on 03/06/23 at 1240
Give NE if patient is unable to take orally or receive by injection.
Scheduled Medication Order 03/18/2023 03/19/2023 03/20/2023 busPIRone (Buspar) tablet 10 mg 10 mg, oral, 2 times daily, First dose on Wed03/16/23 at 2100 0811 (Given - Provider: Andie Lugo RN)2009 (Given - Provider: Eric Campos RN) 08 (Given - Provider: Christina Lazo RN)2050 (Given - Provider: Eric Campos RN) 08 (Given - Provider: Stacie Blanco RN)2099 (Due) cyanocobalamin (Vitamin B-12) tablet 50 mcg 50 mcg, oral, Daily, First dose on Wed03/18/23 at 1515 1558 (Given - Provider: Andie Lugo RN) 0839 (Given - Provider: Christina Lazo RN) 08 (Given - Provider: Stacie Blanco RN) escitalopram (Lexapro) tablet 20 mg 20 mg, oral, Daily, First dose on Wed03/17/23 at 0900 0811 (Given - Provider: Andie Lugo RN) 0839 (Given - Provider: Christina Lazo RN) 08 (Given - Provider: Stacie Blanco RN) famotidine (Pepcid) tablet 20 mg 20 mg, oral, 2 times daily, First dose on Wed03/16/23 at 2100 0811 (Given - Provider: Andie Lugo RN)2009 (Given - Provider: Eric Campos RN) 0839 (Given - Provider: Christina Lazo RN)2050 (Given - Provider: Eric Campos RN) 801 (Given - Provider: Stacie Blanco RN)2100 (Due) ferrous sulfate (325 mg ferrous sulfate) tablet 1 tablet 1 tablet, oral, Daily with breakfast, First dose on Wed03/17/23 at 0800 0811 (Given - Provider: Andie Lugo RN) 0839 (Given - Provider: Christina Lazo RN) 0802 (Given - Provider: Stacie Blanco RN) heparin (porcine) injection 5,000 Units 5,000 Units, subcutaneous, Every 8 hours scheduled, First dose on Wed03/16/23 at 2200 0609 (Given - Provider: Eric Campos RN)1401 (Given - Provider: Andie Lugo RN)2214 (Given - Provider: Eric Campos RN) 0657 (Given - Provider: Eric Campos RN)1321 (Given - Provider: Christina Lazo RN)2105 (Given - Provider: Eric Campos RN) 0537 (Given - Provider: Eric Campos RN)1441 (Given - Provider: Stacie Blanco RN)2200 (Due) levothyroxine (Synthroid, Levoxyl) tablet 100 mcg 100 mcg, oral, Daily, First dose on Wed03/17/23 at 0700 0609 (Given - Provider: Eric Campos RN) 0657 (Given - Provider: Eric Campos RN) 0538 (Given - Provider: Eric Campos RN) lidocaine (Uro-Jet) 2 % jelly 1 Application 1 Application, Topical, Once, On Wed03/17/23 at 0945, For 1 dose liothyronine (Cytomel) tablet 5 mcg 5 mcg, oral, Daily, First dose on Wed03/17/23 at 0700 0609 (Given - Provider: Eric Campos RN) 0657 (Given - Provider: Eric Campos RN) 0600 (Given - Provider: Eric Campos RN) metoclopramide (Reglan) tablet 5 mg 5 mg, oral, 3 times daily before meals, First dose on Wed03/20/23 at 1130 1159 (Given - Provider: Stacie Blanco RN)1600 (Due) mirtazapine (Remeron) tablet 15 mg 15 mg, oral, Nightly, First dose on Wed03/16/23 at 2100 2009 (Given - Provider: Eric Campos RN) 2050 (Given - Provider: Eric Campos RN) 2099 (Due) pantoprazole (ProtoNix) injection 40 mg 40 mg, intravenous, 2 times daily, First dose on Wed03/17/23 at 1900, Reconstitute with 10 mL sodium chloride 0.9% for injection. Push over 2 minutes. Reconstitute with 10 mL sodium chloride 0.9% for injection. Push over 2 minutes. 0811 (Given - Provider: Andie Lugo RN)2008 (Given - Provider: Eric Campos RN) 0839 (Given - Provider: Christina Lazo RN)2050 (Given - Provider: Eric Campos RN) 801 (Given - Provider: Stacie Blanco RN)2099 (Due) thiamine (Vitamin B1) injection 100 mg (COMPLETED) 100 mg, intravenous, Daily, First dose on Wed03/17/23 at 1900, For 3 days 0811 (Given - Provider: Andie Lugo RN) 0839 (Given - Provider: Christina Lazo, DEE) Continuous Medication Order 03/18/2023 03/19/2023 03/20/2023 dextrose 5 % and lactated Ringer's infusion () 100 mL/hr, intravenous, Continuous, Starting on Wed03/18/23 at 1945, For 1 day 2029 (New Bag - Provider: Eric Campos RN)2119 (Rate/Dose Verify - Provider: Eric Campos RN) 07 (New Bag - Provider: Eric Campos RN)2051 (Stopped - Provider: Eric Campos RN) PRN Medication Order 03/18/2023 03/19/2023 03/20/2023 acetaminophen (Tylenol) oral liquid 650 mg(Linked Group 1) 650 mg, nasogastric tube, Every 4 hours PRN, fever (temp greater than 38.0 C), greater than or equal to 38 C, Starting on Wed03/16/23 at 1508 0619 (See Alternative - Provider: Eric Campos RN)2349 (See Alternative - Provider: Eric Campos RN) acetaminophen (Tylenol) suppository 650 mg(Linked Group 1) 650 mg, rectal, Every 4 hours PRN, fever (temp greater than 38.0 C), greater than or equal to 38 C, Starting on Wed03/16/23 at 1508, If ordered PRN for pain, nurse is permitted to administer this medication for higher pain scores based on patient preference? Yes 0619 (See Alternative - Provider: Eric Campos RN)2349 (See Alternative - Provider: Eric Campos RN) acetaminophen (Tylenol) tablet 650 mg(Linked Group 1) 650 mg, oral, Every 4 hours PRN, fever (temp greater than 38.0 C), greater than or equal to 38 C, Starting on Wed03/16/23 at 1508, If ordered PRN for pain, nurse is permitted to administer this medication for higher pain scores based on patient preference? Yes 0619 (Not Given - Provider: Eric Campos RN - Reason: Patient/family refused)234 (Canceled Entry - Provider: Eric Campos RN) albuterol 2.5 mg /3 mL (0.083 %) nebulizer solution 2.5 mg 2.5 mg, nebulization, Every 4 hours PRN, wheezing, shortness of breath, Starting on Wed03/16/23 at 1504, Autosub for inhaler order diazePAM (Valium) injection 5 mg (COMPLETED) 5 mg, intravenous, Administer over 3 Minutes, Every 4 hours PRN, anxiety, muscle spasms, sedation, Starting on Wed03/17/23 at 1529, For 2 doses, Administer over 1-3 minutes, maximum rate is 5 mg per minute. 404 (Given - Provider: Eric Campos RN) diazePAM (Valium) injection 5 mg (COMPLETED) 5 mg, intravenous, Administer over 3 Minutes, Every 4 hours PRN, anxiety, muscle spasms, sedation, Starting on Wed03/18/23 at 1934, For 2 doses, Administer over 1-3 minutes, maximum rate is 5 mg per minute. 2008 (Given - Provider: Eric Campos RN) 0657 (Given - Provider: Eric Campos RN) diazePAM (Valium) tablet 5 mg 5 mg, oral, Every 8 hours PRN, muscle spasms, Advised against taking with edibles, Starting on Wed03/16/23 at 1504 1221 (Given - Provider: Elicia Cardozo RN) 1531 (Given - Provider: Christina Lazo RN) hydrOXYzine HCL (Atarax) tablet 25 mg 25 mg, oral, Daily PRN, anxiety, Starting on Wed03/16/23 at 1504 metoclopramide (Reglan) injection 10 mg(Linked Group 2) 10 mg, intravenous, Every 6 hours PRN, nausea/vomiting, first line, Starting on Wed03/19/23 at 1630, Give IV if patient is unable to take orally. 1751 (Given - Provider: Christina Lazo RN) 0538 (Given - Provider: Eric Campos RN) morphine injection 2 mg 2 mg, intravenous, Every 4 hours PRN, pain moderate (4-6), first line, Starting on Wed03/18/23 at 0953 1006 (Given - Provider: Andie Lugo RN)1407 (Given - Provider: Andie Lugo RN)1814 (Given - Provider: Andie Lugo RN)2214 (Given - Provider: Eric Campos RN) 0323 (Given - Provider: Eric Campos RN)0839 (Given - Provider: Christina Lazo RN)1321 (Given - Provider: Christina Lazo RN)1747 (Given - Provider: Christina Lazo RN) 0131 (Given - Provider: Eric Campos RN)0538 (Given - Provider: Eric Campos RN)0958 (Given - Provider: Stacie Blanco RN) morphine injection 4 mg (COMPLETED) 4 mg, intravenous, Every 4 hours PRN, pain severe (7-10), first line, Starting on Wed03/18/23 at 0124, For 2 doses 0130 (Given - Provider: Eric Campos RN)0609 (Given - Provider: Eric Campos RN) ondansetron (Zofran) injection 4 mg 4 mg, intravenous, Every 6 hours PRN, nausea/vomiting, first line, Starting on Wed03/17/23 at 1129, Give IV if patient is unable to take orally. When administering via IV Push, administer over 3-5 minutes. 2336 (Given - Provider: Eric Campos RN) oxyCODONE-acetaminophen (Percocet) 5-325 mg per tablet 1 tablet 1 tablet, oral, Every 6 hours PRN, pain moderate (4-6), second line, Starting on Wed03/16/23 at 1505, If ordered PRN for pain, nurse is permitted to administer this medication for higher pain scores based on patient preference? Yes 2050 (Given - Provider: Eric Campos RN) 144 (Given - Provider: Stacie Blanco RN) polyethylene glycol (Glycolax, Miralax) packet 17 g 17 g, oral, Daily PRN, constipation, Starting on Wed03/16/23 at 1505 Linked Groups Order Group 1: acetaminophen (Tylenol) tablet 650 mgJump to med 650 mg, oral, Every 4 hours PRN, fever (temp greater than 38.0 C), greater than or equal to 38 C, Starting on Wed03/16/23 at 1508
If ordered PRN for pain, nurse is permitted to administer this medication for higher pain scores based on patient preference? Yes Or acetaminophen (Tylenol) oral liquid 650 mgJump to med 650 mg, nasogastric tube, Every 4 hours PRN, fever (temp greater than 38.0 C), greater than or equal to 38 C, Starting on Wed03/16/23 at 1508 Or acetaminophen (Tylenol) suppository 650 mgJump to med 650 mg, rectal, Every 4 hours PRN, fever (temp greater than 38.0 C), greater than or equal to 38 C, Starting on Wed03/16/23 at 1508
If ordered PRN for pain, nurse is permitted to administer this medication for higher pain scores based on patient preference? Yes Group 2: metoclopramide (Reglan) tablet 10 mg (CANCELED) 10 mg, oral, Every 6 hours PRN, nausea/vomiting, first line, Starting on Wed03/19/23 at 1630 Or metoclopramide (Reglan) injection 10 mgJump to med 10 mg, intravenous, Every 6 hours PRN, nausea/vomiting, first line, Starting on Wed03/19/23 at 1630
Give IV if patient is unable to take orally.
Care Teams (unrecognized sec tion and content) Therapeutic Mentor Relationship Specialty Start Date End Date Shanna June FNP [address] [place] [address] PCP - General Nurse Practitioner - [facility] 01/30/20 Therapeutic Mentor Relationship Specialty Start Date End Date Shanna June CNP [address] [place] [address] PCP - General [facility] Practice 01/31/20 Antelmo Davey [address] [place] [address] 09/25/19 [place] [address] [place] [address] Consulting General Surgery 09/25/19 Shanna June CNP [address] [place] [address] Referring [facility] Practice 10/19/19 Therapeutic Mentor Relationship Specialty Start Date End Date Shanna June CNP [address] [place] [address] PCP - General [facility] Practice 01/31/20 Antelmo Davey MD [address] [place] [address] 09/25/19 [place] [address] [place] [address] Consulting General Surgery 09/25/19 Shanna June CNP [address] [place] [address] Referring Family Practice 10/19/19 Therapeutic Mentor Relationship Specialty Start Date End Date Shanna June CNP [address] [place] [address] PCP - General Family Practice 01/31/20 Antelmo Davey MD [address] [facility] [place] [address] (Fax) 09/25/19 [place] [address] [facility] [place] [address] Consulting General Surgery 09/25/19 Shanna June CNP [address] [place] [address] Referring Family Practice 10/19/19 Therapeutic Mentor Relationship Specialty Start Date End Date Shanna June CNP [address] [place] [address] PCP - General Family Practice 01/31/20 Antelmo Davey MD [address] [facility] [address] (Fax) 09/25/19 [place] [address] [place] [address] Consulting General Surgery 09/25/19 Shanna June CNP [address] [place] [address] Referring Family Practice 10/19/19 Therapeutic Mentor Relationship Specialty Start Date End Date Wally Foley [address] [place] [address] PCP - General Specialist 07/27/21 Therapeutic Mentor Relationship Specialty Start Date End Date Shanna June CNP [address] [place] [address] PCP - General Family Practice 01/31/20 Antelmo Davey MD [address] [place] [address] (Fax) 09/25/19 [place] [address] [place] [address] Consulting General Surgery 09/25/19 Shanna June, APPLICATION SECURITY ARCHITECT [address] [place] [address] Referring Family Practice 10/19/19 Therapeutic Mentor Relationship Specialty Start Date End Date Shanna June CNP [address] [place] [address] PCP - General Family Practice 01/31/20 Antelmo Davey MD [address] [facility] [place] [address] (Fax) 09/25/19 [place] [address] [place] [address] Consulting General Surgery 09/25/19 Shanna June, APPLICATION SECURITY ARCHITECT [address] [place] [address] Referring Family Practice 10/19/19 Therapeutic Mentor Relationship Specialty Start Date End Date Shanna June CNP [address] [place] [address] PCP - General Family Practice 01/31/20 Antelmo Davey MD [address] [facility] [place] [place] [address] (Fax) 09/25/19 [place] [address] [place] [address] Consulting General Surgery 09/25/19 Shanna June CNP [address] [place] [address] Referring Family Practice 10/19/19 Therapeutic Mentor Relationship Specialty Start Date End Date Shanna June CNP [address] [place] [address] PCP - General Family Practice 01/31/20 Antelmo Davey MD [address] [facility] [place] [place] [address] (Fax) 09/25/19 [place] [address] [facility] [place] [address] Consulting General Surgery 09/25/19 Shanna June CNP [address] [place] [address] Referring Family Practice 10/19/19 Therapeutic Mentor Relationship Specialty Start Date End Date Shanna June CNP [address] [place] [address] PCP - General Family Practice 01/31/20 Antelmo Davey MD [address] [facility] [place] [address] (Fax) 09/25/19 [place] [address] [facility] [place] [address] Consulting General Surgery 09/25/19 Shanna JuneBETH [address] [place] [address] Referring Family Practice 10/19/19 Therapeutic Mentor Relationship Specialty Start Date End Date Shanna June CNP [address] [place] [address] PCP - General Family Practice 01/31/20 Antelmo Davey MD [address] [facility] [place] [address] 09/25/19 [place] [address] [facility] [place] [address] Consulting General Surgery 09/25/19 SladeShannaBETH [address] [place] [address] Referring Family Practice 10/19/19 Therapeutic Mentor Relationship Specialty Start Date End Date Wally Foley [address] [place] [address] PCP - General Specialist 07/27/21 Therapeutic Mentor Relationship Specialty Start Date End Date Shanna June CNP [address] [place] [address] PCP - General Family Practice 01/31/20 Antelmo Davey MD [address] [place] [address] 09/25/19 [place] [address] [facility] [place] [address] Consulting General Surgery 09/25/19 Shanna June CNP [address] [place] [address] Referring Family Practice 10/19/19 Therapeutic Mentor Relationship Specialty Start Date End Date Shanna June CNP [address] [place] [address] PCP - General Family Practice 01/31/20 Antelmo Davey MD [address] [place] [address] 09/25/19 [place] [address] [place] [address] Consulting General Surgery 09/25/19 Shanna June CNP [address] [place] [address] Referring Family Practice 10/19/19 Therapeutic Mentor Relationship Specialty Start Date End Date Slade BETH Otero [address] [place] [address] PCP - General Family Practice 01/31/20 Antelmo Davey MD [address] [place] [address] (Fax) 09/25/19 [place] [address] [place] [address] Consulting General Surgery 09/25/19 Shanna June CNP [address] [place] [address] Referring Family Practice 10/19/19 Therapeutic Mentor Relationship Specialty Start Date End Date Shanna June CNP [address] [place] [address] PCP - General Family Practice 01/31/20 Antelmo Davey MD [address] [place] [address] (Fax) 09/25/19 [place] [address] [place] [address] Consulting General Surgery 09/25/19 Shanna June CNP [address] [place] [address] Referring Family Practice 10/19/19 Therapeutic Mentor Relationship Specialty Start Date End Date Shanna June CNP [address] [place] [address] PCP - General Family Medicine 01/31/20 Antelmo Davey MD [address] [place] [address] (Fax) 09/25/19 [place] [address] [place] [address] Consulting General Surgery 09/25/19 Shanna June, APPLICATION SECURITY ARCHITECT [address] [place] [address] Referring Family Medicine 10/19/19 Therapeutic Mentor Relationship Specialty Start Date End Date Shanna June CNP [address] [place] [address] PCP - General Family Medicine 01/31/20 Antelmo Davey MD [address] [facility] [place] [address] (Fax) 09/25/19 [place] [address] [place] [address] Consulting General Surgery 09/25/19 Shanna June, APPLICATION SECURITY ARCHITECT [address] [place] [address] Referring Family Medicine 10/19/19 Therapeutic Mentor Relationship Specialty Start Date End Date Shanna June CNP [address] [place] [address] PCP - General Family Medicine 01/31/20 Antelmo Davey MD [address] [facility] [place] [address] (Fax) 09/25/19 [place] [address] [place] [address] Consulting General Surgery 09/25/19 Shanna June, APPLICATION SECURITY ARCHITECT [address] [place] [address] Referring Family Medicine 10/19/19 Therapeutic Mentor Relationship Specialty Start Date End Date Shanna June CNP [address] [place] [address] PCP - General Family Medicine 01/31/20 Antelmo Davey MD [address] [place] [address] (Fax) 09/25/19 [place] [address] [facility] [place] [address] Consulting General Surgery 09/25/19 SladeShanna, APPLICATION SECURITY ARCHITECT [address] [place] [address] Referring Family Medicine 10/19/19 Therapeutic Mentor Relationship Specialty Start Date End Date Shanna JuenBETH [address] [place] [address] PCP - General Family Medicine 01/31/20 Antelmo Davey MD [address] [place] [address] (Fax) 09/25/19 [place] [address] [place] [address] Consulting General Surgery 09/25/19 SladeDenverShanna, APPLICATION SECURITY ARCHITECT [address] [place] [address] Referring Family Medicine 10/19/19 Therapeutic Mentor Relationship Specialty Start Date End Date SladeDenyBETH pressley [address] [place] [address] PCP - General Family Medicine 01/31/20 Antelmo Davey MD [address] [facility] [place] [address] (Fax) 09/25/19 [place] [address] [place] [address] Consulting General Surgery 09/25/19 Shanna June, APPLICATION SECURITY ARCHITECT [address] [place] [address] Referring Family Medicine 10/19/19 Therapeutic Mentor Relationship Specialty Start Date End Date Shanna June, APPLICATION SECURITY ARCHITECT [address] [place] [address] PCP - General Family Medicine 01/31/20 Antelmo Davey MD [address] [facility] [place] [address] (Fax) 09/25/19 [place] [address] [facility] [place] [address] Consulting General Surgery 09/25/19 Shanna June, APPLICATION SECURITY ARCHITECT [address] [place] [address] Referring Family Medicine 10/19/19 Therapeutic Mentor Relationship Specialty Start Date End Date Shanna June APPLICATION SECURITY ARCHITECT [address] [place] [address] PCP - General Family Medicine 01/31/20 Antelmo Davey MD [address] [facility] [place] [address] (Fax) 09/25/19 [place] [address] [place] [address] Consulting General Surgery 09/25/19 Slade Shanna, APPLICATION SECURITY ARCHITECT [address] [place] [address] Referring Family Medicine 10/19/19 Therapeutic Mentor Relationship Specialty Start Date End Date SladeShanna, APPLICATION SECURITY ARCHITECT [address] [place] [address] PCP - General Family Medicine 01/31/20 Antelmo Davey MD [address] [place] [address] (Fax) 09/25/19 [place] [address] [place] [address] Consulting General Surgery 09/25/19 Shanna June CNP [address] [place] [address] Referring Family Medicine 10/19/19 Therapeutic Mentor Relationship Specialty Start Date End Date SladeDenverShannaBETH tomlin [address] [place] [address] PCP - General Family Medicine 01/31/20 Antelmo Davey MD [address] [place] [address] (Fax) 09/25/19 [place] [address] [place] [address] Consulting General Surgery 09/25/19 Shanna June CNP [address] [place] [address] Referring Family Medicine 10/19/19 Therapeutic Mentor Relationship Specialty Start Date End Date SladeDenverShanna, APPLICATION SECURITY ARCHITECT [address] [place] [address] PCP - General Family Medicine 01/31/20 Antelmo Davey MD [address] [place] [address] (Fax) 09/25/19 [place] [address] [facility] [place] [address] Consulting General Surgery 09/25/19 Shanna June, APPLICATION SECURITY ARCHITECT [address] [place] [address] Referring Family Medicine 10/19/19 Therapeutic Mentor Relationship Specialty Start Date End Date Shanna June, APPLICATION SECURITY ARCHITECT [address] [place] [address] PCP - General Family Medicine 01/31/20 Antelmo Davey MD [address] [facility] [place] [address] (Fax) 09/25/19 [place] [address] [facility] [place] [address] Consulting General Surgery 09/25/19 Shanna June, APPLICATION SECURITY ARCHITECT [address] [place] [address] Referring Family Medicine 10/19/19 Therapeutic Mentor Relationship Specialty Start Date End Date Wally Foley MD [address] [place] [address] PCP - General Family Medicine 01/19/22 Antelmo Davey MD [address] [facility] [place] [address] (Fax) 09/25/19 [place] [address] [facility] [place] [address] Consulting General Surgery 09/25/19 Shanna June, APPLICATION SECURITY ARCHITECT [address] [place] [address] Referring Family Medicine 10/19/19 Therapeutic Mentor Relationship Specialty Start Date End Date Wally Foley MD [address] [place] [address] PCP - General Family Medicine 01/19/22 Antelmo Davey MD [address] [facility] [place] [address] (Fax) 09/25/19 [place] [address] [facility] [place] [address] Consulting General Surgery 09/25/19 Shanna June, APPLICATION SECURITY ARCHITECT [address] [place] [address] Referring Family Medicine 10/19/19 Therapeutic Mentor Relationship Specialty Start Date End Date Wally Foley MD [address] [facility] [place] [address] PCP - General Family Medicine 01/19/22 Antelmo Davey MD [address] [facility] [place] [address] (Fax) 09/25/19 [place] [address] [facility] [place] [address] Consulting General Surgery 09/25/19 Shanna June, APPLICATION SECURITY ARCHITECT [address] [place] [address] Referring Family Medicine 10/19/19 Therapeutic Mentor Relationship Specialty Start Date End Date Wally Foley MD [address] [place] [address] PCP - General Family Medicine 01/19/22 Antelmo Davey MD [address] [place] [address] (Fax) 09/25/19 [place] [address] [place] [address] Consulting General Surgery 09/25/19 Shanna June, APPLICATION SECURITY ARCHITECT [address] [place] [address] Referring Family Medicine 10/19/19 Therapeutic Mentor Relationship Specialty Start Date End Date Wally Foley MD [address] [place] [address] PCP - General Family Medicine 01/19/22 Antelmo Davey MD [address] [facility] [place] [address] (Fax) 09/25/19 [place] [address] [facility] [place] [place] [address] Consulting General Surgery 09/25/19 Shanna June, APPLICATION SECURITY ARCHITECT [address] [place] [address] Referring Family Medicine 10/19/19 Therapeutic Mentor Relationship Specialty Start Date End Date Wally Foley MD [address] [place] [address] PCP - General Family Medicine 01/19/22 Antelmo Davey MD [address] [place] [address] (Fax) 09/25/19 [place] [address] [place] [address] Consulting General Surgery 09/25/19 Shanna June, APPLICATION SECURITY ARCHITECT [address] [place] [address] Referring Family Medicine 10/19/19 Therapeutic Mentor Relationship Specialty Start Date End Date Wally Foley MD [address] [place] [address] PCP - General Family Medicine 01/19/22 Antelmo Davey MD [address] [place] [address] (Fax) 09/25/19 [place] [address] [facility] [place] [address] Consulting General Surgery 09/25/19 Shanna June, APPLICATION SECURITY ARCHITECT [address] [place] [address] Referring Family Medicine 10/19/19 Therapeutic Mentor Relationship Specialty Start Date End Date Wally Foley MD [address] [place] [address] PCP - General Family Medicine 01/19/22 Antelmo Davey MD [address] [place] [address] (Fax) 09/25/19 [place] [address] [place] [address] Consulting General Surgery 09/25/19 Shanna June, APPLICATION SECURITY ARCHITECT [address] [place] [address] Referring Family Medicine 10/19/19 Therapeutic Mentor Relationship Specialty Start Date End Date Wally Foley MD [address] [place] [address] PCP - General Family Medicine 01/19/22 Antelmo Davey MD [address] [place] [address] 09/25/19 [place] [address] [place] [address] Consulting General Surgery 09/25/19 Shanna June, APPLICATION SECURITY ARCHITECT [address] [place] [address] Referring Family Medicine 10/19/19 Therapeutic Mentor Relationship Specialty Start Date End Date Wally Foley MD [address] [place] [address] PCP - General Family Medicine 01/19/22 Antelmo Davey MD [address] [place] [address] (Fax) 09/25/19 [place] [address] [facility] [place] [place] [address] Consulting General Surgery 09/25/19 Shanna June, APPLICATION SECURITY ARCHITECT [address] [place] [address] Referring Family Medicine 10/19/19 Therapeutic Mentor Relationship Specialty Start Date End Date Wally Foley MD [address] [facility] [place] [address] PCP - General Family Medicine 01/19/22 Antelmo Davey MD [address] [facility] [place] [address] (Fax) 09/25/19 [place] [address] [facility] [place] [address] Consulting General Surgery 09/25/19 Shanna June, APPLICATION SECURITY ARCHITECT [address] [place] [address] Referring Family Medicine 10/19/19 Therapeutic Mentor Relationship Specialty Start Date End Date Wally Foley MD [address] [facility] [place] [address] PCP - General Family Medicine 01/19/22 Antelmo Davey MD [address] [facility] [place] [address] (Fax) 09/25/19 [place] [address] [facility] [place] [address] Consulting General Surgery 09/25/19 Shanna June CNP [address] [place] [address] Referring Family Medicine 10/19/19 Agustin Valentino [address] [place] [address] Referring Family Medicine 05/13/22 Therapeutic Mentor Relationship Specialty Start Date End Date Jaquan Morrow [address] [place] [address] PCP - General 06/16/22 Antelmo Davey MD [address] [place] [address] 09/25/19 [place] [address] [facility] [place] [address] Consulting General Surgery 09/25/19 Shanna June, APPLICATION SECURITY ARCHITECT [address] [place] [address] Referring Family Medicine 10/19/19 Agustin Valentino [address] [place] [address] Referring Family Medicine 05/13/22 Therapeutic Mentor Relationship Specialty Start Date End Date Jaquan Morrow [address] [place] [address] PCP - General 06/16/22 Antelmo Davey MD [address] [place] [address] 09/25/19 [place] [address] [place] [address] Consulting General Surgery 09/25/19 Shanna June, APPLICATION SECURITY ARCHITECT [address] [place] [address] Referring Family Medicine 10/19/19 Agustin Valentino [address] [facility] [address] [place] [address] Referring Family Medicine 05/13/22 Therapeutic Mentor Relationship Specialty Start Date End Date Jaquan Morrow [address] [place] [address] PCP - General 06/16/22 Antelmo Davey MD [address] [place] [address] 09/25/19 [place] [address] [place] [address] Consulting General Surgery 09/25/19 Shanna June, APPLICATION SECURITY ARCHITECT [address] [place] [address] Referring Family Medicine 10/19/19 Agustin Valentino [address] [facility] [address] [place] [address] Referring Family Medicine 05/13/22 Therapeutic Mentor Relationship Specialty Start Date End Date Jaquan Morrow [address] [place] [address] PCP - General 06/16/22 Antelmo Davey MD [address] [place] [address] 09/25/19 [place] [address] [place] [address] Consulting General Surgery 09/25/19 Shanna June, APPLICATION SECURITY ARCHITECT [address] [place] [address] Referring Family Medicine 10/19/19 Agustin Valentino [address] [place] [address] Referring Family Medicine 05/13/22 Therapeutic Mentor Relationship Specialty Start Date End Date Jaquan Morrow [address] [place] [address] PCP - General 06/16/22 Antelmo Davey MD [address] [place] [address] 09/25/19 [place] [address] [facility] [place] [address] Consulting General Surgery 09/25/19 Shanna June, APPLICATION SECURITY ARCHITECT [address] [place] [address] Referring Family Medicine 10/19/19 Agustin Valentino [address] [place] [address] Referring Family Medicine 05/13/22 Therapeutic Mentor Relationship Specialty Start Date End Date Jaquan Morrow [address] [place] [address] PCP - General 06/16/22 Antelmo Davey MD [address] [place] [address] 09/25/19 [place] [address] [place] [address] Consulting General Surgery 09/25/19 Shanna June, APPLICATION SECURITY ARCHITECT [address] [place] [address] Referring Family Medicine 10/19/19 Agustin Valentino [address] [place] [address] Referring Family Medicine 05/13/22 Therapeutic Mentor Relationship Specialty Start Date End Date Jaquan Morrow [address] [place] [address] PCP - General 06/16/22 Antelmo Davey MD [address] [place] [address] (Fax) 09/25/19 [place] [address] [facility] [place] [address] Consulting General Surgery 09/25/19 Shanna June, APPLICATION SECURITY ARCHITECT [address] [place] [address] Referring Family Medicine 10/19/19 Agustin Valentino [address] [place] [address] Referring Family Medicine 05/13/22 Therapeutic Mentor Relationship Specialty Start Date End Date Jaquan Morrow [address] [place] [address] PCP - General 06/16/22 Antelmo Davey MD [address] [place] [address] (Fax) 09/25/19 [place] [address] [place] [address] Consulting General Surgery 09/25/19 Shanna June CNP [address] [place] [address] Referring Family Medicine 10/19/19 Agustin Valentino 112 [facility] [place] [address] Referring Family Medicine 05/13/22 Therapeutic Mentor Relationship Specialty Start Date End Date Jaquan Morrow [address] [place] [address] PCP - General 06/16/22 Antelmo Davey MD [address] [place] [address] (Fax) 09/25/19 [place] [address] [place] [address] Consulting General Surgery 09/25/19 Shanna June CNP [address] [place] [address] Referring Family Medicine 10/19/19 Agustin Valentino 112 [facility] [place] [address] Referring Family Medicine 05/13/22 Therapeutic Mentor Relationship Specialty Start Date End Date Jaquan Morrow [address] [place] [address] PCP - General 06/16/22 Antelmo Davey MD [address] [place] [address] (Fax) 09/25/19 [place] [address] [place] [address] Consulting General Surgery 09/25/19 Shanna June, BETH [address] [place] [address] Referring Family Medicine 10/19/19 Agustin Valentino 112 [facility] 150 [place] [address] Referring Family Medicine 05/13/22 Therapeutic Mentor Relationship Specialty Start Date End Date Jaquan Morrow [address] [place] [address] PCP - General 06/16/22 Antelmo Davey MD [address] [place] [address] (Fax) 09/25/19 [place] [address] [place] [address] Consulting General Surgery 09/25/19 Shanna June, BETH [address] [place] [address] Referring Family Medicine 10/19/19 Agustin Valentino 112 [facility] [place] [address] Referring Family Medicine 05/13/22 Therapeutic Mentor Relationship Specialty Start Date End Date Jaquan Morrow [address] [place] [address] PCP - General 06/16/22 Antelmo Davey MD [address] [place] [address] 09/25/19 [place] [address] [place] [address] Consulting General Surgery 09/25/19 Shanna June, APPLICATION SECURITY ARCHITECT [address] [place] [address] Referring Family Medicine 10/19/19 Agustin Valentino [address] [place] [address] Referring Family Medicine 05/13/22 Therapeutic Mentor Relationship Specialty Start Date End Date Jaquan Morrow [address] [place] [address] PCP - General 06/16/22 Antelmo Davey MD [address] [place] [address] (Fax) 09/25/19 [place] [address] [place] [address] Consulting General Surgery 09/25/19 Shanna June, APPLICATION SECURITY ARCHITECT [address] [place] [address] Referring Family Medicine 10/19/19 Agustin Valentino, PA [address] [facility] [address] [place] [address] Referring Family Medicine 05/13/22 Therapeutic Mentor Relationship Specialty Start Date End Date Jaquan Morrow [address] [place] [address] PCP - General 06/16/22 Antelmo Davey MD [address] [facility] [place] [address] 09/25/19 [place] [address] [place] [address] Consulting General Surgery 09/25/19 Shanna June CNP [address] [place] [address] Referring Family Medicine 10/19/19 Agustin Valentino PA [address] [place] [address] [place] [address] Referring Family Medicine 05/13/22 Therapeutic Mentor Relationship Specialty Start Date End Date Wally Foley [address] [place] [address] PCP - General Specialist 07/27/21 Therapeutic Mentor Relationship Specialty Start Date End Date Shanna June FNP [address] [place] [address] PCP - General Nurse Practitioner - Family 01/30/20 Therapeutic Mentor Relationship Specialty Start Date End Date Jaquan Morrow [address] [place] [address] PCP - General 06/16/22 Antelmo Davey MD [address] [place] [address] (Fax) 09/25/19 [place] [address] [place] [address] Consulting General Surgery 09/25/19 Shanna June, APPLICATION SECURITY ARCHITECT [address] [place] [address] Referring Family Medicine 10/19/19 Agustin Valentino PA [address] [address] [place] [address] Referring Family Medicine 05/13/22 Therapeutic Mentor Relationship Specialty Start Date End Date Jaquan Morrow [address] [place] [address] PCP - General 06/16/22 Antelmo Davey MD [address] [place] [address] (Fax) 09/25/19 [place] [address] [place] [address] Consulting General Surgery 09/25/19 Shanna June, APPLICATION SECURITY ARCHITECT [address] [place] [address] Referring Family Medicine 10/19/19 Agustin Valentino PA [address] [place] [address] [place] [address] Referring Family Medicine 05/13/22 Therapeutic Mentor Relationship Specialty Start Date End Date Linda Morrowdi [address] [place] [address] PCP - General 06/16/22 Antelmo Davey MD [address] [place] [address] (Fax) 09/25/19 [place] [address] [place] [address] Consulting General Surgery 09/25/19 Shanna June, APPLICATION SECURITY ARCHITECT [address] [place] [address] Referring Family Medicine 10/19/19 Agustin Valentino PA [address] [place], [place] [address] [address] Referring Family Medicine 05/13/22 Therapeutic Mentor Relationship Specialty Start Date End Date CristhianLindadi [address] [place] [address] PCP - General 06/16/22 Antelmo Davey MD [address] [place] [address] (Fax) 09/25/19 [place] [address] [place] [address] Consulting General Surgery 09/25/19 Shanna June, BETH [address] [place] [address] Referring Family Medicine 10/19/19 Agustin Valentino PA [address] [place] [address] [place] [address] Referring Family Medicine 05/13/22 Therapeutic Mentor Relationship Specialty Start Date End Date Jaquan Morrow [address] [place] [address] PCP - General 06/16/22 Antelmo Davey MD [address] [place] [address] (Fax) 09/25/19 [place] [address] [place] [address] Consulting General Surgery 09/25/19 Shanna June CNP [address] [place] [address] Referring Family Medicine 10/19/19 Agustin Valentino PA [address] [facility] [place] [address] Referring Family Medicine 05/13/22 Therapeutic Mentor Relationship Specialty Start Date End Date Jaquan Morrow [address] [place] [address] PCP - General 06/16/22 Antelmo Davey MD [address] [place] [address] (Fax) 09/25/19 [place] [address] [place] [address] Consulting General Surgery 09/25/19 Shanna June, BETH [address] [place] [address] Referring Family Medicine 10/19/19 Agustin Valentino PA [address] [facility] 150 [place] [address] Referring Family Medicine 05/13/22 Therapeutic Mentor Relationship Specialty Start Date End Date Jaquan Morrow [address] [place] [address] PCP - General 06/16/22 Antelmo Davey MD [address] [place] [address] (Fax) 09/25/19 [place] [address] [place] [address] Consulting General Surgery 09/25/19 Shanna June, BETH [address] [place] [address] Referring Family Medicine 10/19/19 Agustin Valentino PA [address] [facility] [place] [address] Referring Family Medicine 05/13/22 Therapeutic Mentor Relationship Specialty Start Date End Date Jaquan Morrow [address] [place] [address] PCP - General 06/16/22 Antelmo Davey MD [address] [place] [address] (Fax) 09/25/19 [place] [address] [place] [address] Consulting General Surgery 09/25/19 Shanna June, APPLICATION SECURITY ARCHITECT [address] [place] [address] Referring Family Medicine 10/19/19 Agustin Valentino PA [address] [place] [address] [place] [address] Referring Family Medicine 05/13/22 Therapeutic Mentor Relationship Specialty Start Date End Date Jaquan Morrow [address] [place] [address] PCP - General 06/16/22 Antelmo Davey MD [address] [place] [address] (Fax) 09/25/19 [place] [address] [place] [address] Consulting General Surgery 09/25/19 Shanna June, APPLICATION SECURITY ARCHITECT [address] [place] [address] Referring Family Medicine 10/19/19 Agustin Valentino PA [address] [facility] [place] [address] Referring Family Medicine 05/13/22 Therapeutic Mentor Relationship Specialty Start Date End Date Jaquan Morrow [address] [place] [address] PCP - General 06/16/22 Antelmo Davey MD [address] [place] [address] (Fax) 09/25/19 [place] [address] [place] [address] Consulting General Surgery 09/25/19 Shanna June, BETH [address] [place] [address] Referring Family Medicine 10/19/19 Agustin Valentino PA [address] [place] [address] [place] [address] Referring Family Medicine 05/13/22 Therapeutic Mentor Relationship Specialty Start Date End Date Jaquan Morrow [address] [place] [address] PCP - General 06/16/22 Antelmo Davey MD [address] [place] [address] (Fax) 09/25/19 Deacon [place] [address] [place] [address] Consulting General Surgery 09/25/19 Shanna June, BETH [address] [place] [address] Referring Family Medicine 10/19/19 Agustin Valentino PA [address] [place] [address] [place] [address] Referring Family Medicine 05/13/22 Therapeutic Mentor Relationship Specialty Start Date End Date Jaquan Morrow [address] [place] [address] PCP - General 06/16/22 Antelmo Davey MD [address] [place] [address] (Fax) 09/25/19 [place] [address] [place] [address] Consulting General Surgery 09/25/19 Shanna June CNP [address] [place] [address] Referring Family Medicine 10/19/19 Agustin Valentino PA [address] [facility] [place] [address] Referring Family Medicine 05/13/22 Therapeutic Mentor Relationship Specialty Start Date End Date Jqauan Morrow [address] [place] [address] PCP - General 06/16/22 Antelmo Davey MD [address] [place] [address] (Fax) 09/25/19 [place] [address] [place] [address] Consulting General Surgery 09/25/19 Shanna June, BETH [address] [place] [address] Referring Family Medicine 10/19/19 Agustin Valentino PA [address] [facility] [address] [place] [address] Referring Family Medicine 05/13/22 Therapeutic Mentor Relationship Specialty Start Date End Date Jaquan Morrow [address] [place] [address] PCP - General 06/16/22 Antelmo Davey MD [address] [place] [address] (Fax) 09/25/19 [place] [address] [place] [address] Consulting General Surgery 09/25/19 Shanna June, BETH [address] [place] [address] Referring Family Medicine 10/19/19 Agustin Valentino PA [address] [facility] [address] [place] [address] Referring Family Medicine 05/13/22 Therapeutic Mentor Relationship Specialty Start Date End Date Jaquan Morrow [address] [place] [address] PCP - General 06/16/22 Antelmo Davey MD [address] [place] [address] 09/25/19 [place] [address] [place] [address] Consulting General Surgery 09/25/19 Shanna June, APPLICATION SECURITY ARCHITECT [address] [place] [address] Referring Family Medicine 10/19/19 Agustin Valentino PA [address] [place] [address] [place] [address] Referring Family Medicine 05/13/22 Therapeutic Mentor Relationship Specialty Start Date End Date Jaquan Morrow [address] [place] [address] PCP - General 06/16/22 Antelmo Davey MD [address] [place] [address] (Fax) 09/25/19 [place] [address] [place] [address] Consulting General Surgery 09/25/19 Shanna June, APPLICATION SECURITY ARCHITECT [address] [place] [address] Referring Family Medicine 10/19/19 Agustin Valentino PA [address] [facility] [place] [address] Referring Family Medicine 05/13/22 Therapeutic Mentor Relationship Specialty Start Date End Date Jaquan Morrow [address] [place] [address] PCP - General 06/16/22 Antelmo Davey MD [address] [facility] [place] [address] (Fax) 09/25/19 [place] [address] [place] [address] Consulting General Surgery 09/25/19 Shanna June, BETH [address] [place] [address] Referring Family Medicine 10/19/19 Agustin Valentino PA [address] [place] [address] [place] [address] Referring Family Medicine 05/13/22 Therapeutic Mentor Relationship Specialty Start Date End Date Jaquan Morrow [address] [place] [address] PCP - General 06/16/22 Antelmo Davey MD [address] [place] [address] (Fax) 09/25/19 [place] [address] [place] [address] Consulting General Surgery 09/25/19 Shanna June, BETH [address] [place] [address] Referring Family Medicine 10/19/19 Agustin Valentino PA [address] [address] Referring Family Medicine 05/13/22 Therapeutic Mentor Relationship Specialty Start Date End Date Jaquan Morrow [address] [place] [address] PCP - General 06/16/22 Antelmo Davey MD [address] [place] [address] (Fax) 09/25/19 [place] [address] [place] [address] Consulting General Surgery 09/25/19 Shanna June CNP [address] [place] [address] Referring Family Medicine 10/19/19 Agustin Valentino PA [address] [place] [address] Referring Family Medicine 05/13/22 Therapeutic Mentor Relationship Specialty Start Date End Date Jaquan Morrow [address] [place] [address] PCP - General 06/16/22 Antelmo Davey MD [address] [place] [address] (Fax) 09/25/19 [place] [address] [place] [address] Consulting General Surgery 09/25/19 Shanna June, APPLICATION SECURITY ARCHITECT [address] [place] [address] Referring Family Medicine 10/19/19 Agustin Valentino PA [address] [facility] [address] [place] [address] Referring Family Medicine 05/13/22 Therapeutic Mentor Relationship Specialty Start Date End Date Jaquan Morrow, BRANCH SERVICE ASSOCIATE.APPLICATION SECURITY ARCHITECT [address] [place] [address] PCP - General 06/16/22 Antelmo Davey MD [address] [place] [address] 09/25/19 [place] [address] [place] [address] Consulting General Surgery 09/25/19 Slade Shanna, APPLICATION SECURITY ARCHITECT [address] [place] [address] Referring Family Medicine 10/19/19 Agustin Valentino PA [address] [facility] [address] [place] [address] Referring Family Medicine 05/13/22 Therapeutic Mentor Relationship Specialty Start Date End Date Jaquan Morrow, BRANCH SERVICE ASSOCIATE.APPLICATION SECURITY ARCHITECT [address] [place] [address] PCP - General 06/16/22 Antelmo Davey MD [address] [place] [address] 09/25/19 [place] [address] [place] [address] Consulting General Surgery 09/25/19 Shanna June, BETH [address] [place] [address] Referring Family Medicine 10/19/19 Agustin Valentino PA [address] [place] [address] Referring Family Medicine 05/13/22 Therapeutic Mentor Relationship Specialty Start Date End Date Jaquan Morrow, BRANCH SERVICE ASSOCIATE.APPLICATION SECURITY ARCHITECT [address] [place] [address] PCP - General 06/16/22 Antelmo Davey MD [address] [place] [address] 09/25/19 [place] [address] [place] [address] Consulting General Surgery 09/25/19 Shanna June CNP [address] [place] [address] Referring Family Medicine 10/19/19 Agustin Valentino PA [address] [place] [address] Referring Family Medicine 05/13/22 Therapeutic Mentor Relationship Specialty Start Date End Date Jaquan Morrow, BRANCH SERVICE ASSOCIATE.APPLICATION SECURITY ARCHITECT [address] [place] [address] PCP - General 06/16/22 Antelmo Davey MD [address] [place] [address] (Fax) 09/25/19 [place] [address] [place] [address] Consulting General Surgery 09/25/19 Shanna June CNP [address] [place] [address] Referring Family Medicine 10/19/19 Agustin Valentino PA [address] [place] [address] Referring Family Medicine 05/13/22 Therapeutic Mentor Relationship Specialty Start Date End Date Jaquan Morrow, BRANCH SERVICE ASSOCIATE.APPLICATION SECURITY ARCHITECT [address] [place] [address] PCP - General 06/16/22 Antelmo Davey MD [address] [place] [address] 09/25/19 [place] [address] [place] [address] Consulting General Surgery 09/25/19 Shanna June CNP [address] [place] [address] Referring Family Medicine 10/19/19 Agustin Valentino PA [address] [place] [address] Referring Family Medicine 05/13/22 Team Status: Active Member Role Status Dates Jaquan Morrow TRUCK CAR AND BUS CLEANER-C Primary Care Provider Active Team Status: Inactive Member Role Status Dates Jaquan Morrow TR[employer] CAR AND [employer] CLEANER-C Primary Care Provider Active Claus Obrien DO Emergency Provider Active Roseline Mejia DO RES Active Therapeutic Mentor Relationship Specialty Start Date End Date Generic Provider, No Assigned PcpMD [address] [place] [address] PCP - General Family Medicine 01/02/23 Therapeutic Mentor Relationship Specialty Start Date End Date Generic Provider, No Assigned PcpMD [address] [place] [address] PCP - General [facility] Medicine 01/02/23 Team Status: Inactive Member Role Status Dates Jaquan Morrow NP-C Primary Care Provider Active Start: February 13, 2023 End: February 13, 2023 Claus Obrien DO Emergency Provider Active Start: February 13, 2023 End: February 13, 2023 Roseline Mejia DO RES Active Start : February 13, 2023 End: February 13, 2023 Team Status: Inactive Member Role Status Dates Jaquan Morrow NP-[place] Primary Care Provider Active Start: April 06, 2023 End: April 06, 2023 Trace Lowery [facility]- Emergency Provider Active Start: April 06, 2023 End: April 06, 2023 Therapeutic Mentor Relationship Specialty Start Date End Date Generic Provider, No Assigned PcpMD [address] [place] [address] PCP - [facility] Medicine 01/02/23 Therapeutic Mentor Relationship Specialty Start Date End Date Jaquan Morrow APRN.CNP [address] [place] [address] PCP - General 06/16/22 Antelmo Davey MD [address] [place] [address] (Fax) 09/25/19 [place] [address] [place] [address] Consulting General Surgery 09/25/19 Shanna June, BETH [address] [place] [address] Referring Family Medicine 10/19/19 Agustin Valentino PA [address] [place] [address] Referring Family Medicine 05/13/22 Therapeutic Mentor Relationship Specialty Start Date End Date Generic Provider, No Assigned PcpMD [address] [place] [id number] PCP - General Family Medicine 01/02/23 Therapeutic Mentor Relationship Specialty Start Date End Date Jaquan Morrow, BRANCH SERVICE ASSOCIATE.APPLICATION SECURITY ARCHITECT [address] [place] [address] PCP - General 06/16/22 Antelmo Davey MD [address] [place] [address] 09/25/19 [place] [address] [place] [address] Consulting General Surgery 09/25/19 Shanna June CNP [address] [place] [address] Referring Family Medicine 10/19/19 Agustin Valentino PA [address] [facility] [address] [place] [address] Referring Family Medicine 05/13/22 Team Status: Inactive Member Role Status Dates PAO Morales Primary Care Provider Active Start: May 30, 2023 End: May 31, 2023 Gabino Parker APRN Emergency Provider Active Start: May 30, 2023 End: May 31, 2023 Therapeutic Mentor Relationship Specialty Start Date End Date Jaquan Morrow APRN.APPLICATION SECURITY ARCHITECT [address] [place] [address] PCP - General 06/16/22 Antelmo Davey MD [address] [place] [address] 09/25/19 [place] [address] [place] [address] Consulting General Surgery 09/25/19 Shanna June CNP [address] [place] [address] Referring Family Medicine 10/19/19 Agustin Valentino PA [address] [facility] [address] [place] [address] Referring Family Medicine 05/13/22 Therapeutic Mentor Relationship Specialty Start Date End Date Jaquan Morrow APRN.APPLICATION SECURITY ARCHITECT [address] [place] [address] PCP - General 06/16/22 Antelmo Davey MD [address] [facility] [place] [address] 09/25/19 [place] [address] [place] [address] Consulting General Surgery 09/25/19 Shanna June, APPLICATION SECURITY ARCHITECT [address] [place] [address] Referring Family Medicine 10/19/19 Agustin Valentino PA [address] [facility] [place] [address] Referring Family Medicine 05/13/22 Therapeutic Mentor Relationship Specialty Start Date End Date Jaquan Morrow, BRANCH SERVICE ASSOCIATE.APPLICATION SECURITY ARCHITECT [address] [place] [address] PCP - General 06/16/22 Antelmo Davey MD [address] [facility] [place] [address] 09/25/19 [place] [address] [place] [address] Consulting General Surgery 09/25/19 Shanna June, BETH [address] [place] [address] Referring Family Medicine 10/19/19 Agustin Valentino PA [address] [facility] [address] [place] [address] Referring Family Medicine 05/13/22 Therapeutic Mentor Relationship Specialty Start Date End Date Jaquan Morrow APRN.APPLICATION SECURITY ARCHITECT [address] [place] [address] PCP - General 06/16/22 Antelmo Davey MD [address] [place] [address] 09/25/19 [place] [address] [place] [address] Consulting General Surgery 09/25/19 Shanna June CNP [address] [place] [address] Referring Family Medicine 10/19/19 Agustin Valentino PA [address] [address] Referring Family Medicine 05/13/22 Source Comments (unrecognize d section and content) In the event this informatio n is protected by the Federal Confidentiality of Alcohol and Drug Abuse Patient Records regulations: The Federal rules restrict any use of the information to criminally investigate or prosecute any alcohol or drug abuse patient.[facility] the event this information is protected by the Federal Confidentiality of Alcohol and Drug Abuse Patient Records regulations: The Federal rules restrict any use of the information to criminally investigate or prosecute any alcohol or drug abuse patient.[facility] the event this information is protected by the Federal Confidentiality of Alcohol and Drug Abuse Patient Records regulations: The Federal rules restrict any use of the information to criminally investigate or prosecute any alcohol or drug abuse patient.[facility]In the event this information is protected by the Federal Confidentiality of Alcohol and Drug Abuse Patient Records regulations: The Federal rules restrict any use of the information to criminally investigate or prosecute any alcohol or drug abuse patient.[facility] HospitalIn the event this information is protected by the Federal Confidentiality of Alcohol and Drug Abuse Patient Records regulations: The Federal rules restrict any use of the information to criminally investigate or prosecute any alcohol or drug abuse patient.[facility] the event this information is protected by the Federal Confidentiality of Alcohol and Drug Abuse Patient Records regulations: The Federal rules restrict any use of the information to criminally investigate or prosecute any alcohol or drug abuse patient.[facility] HospitalIn the event this information is protected by the Federal Confidentiality of Alcohol and Drug Abuse Patient Records regulations: The Federal rules restrict any use of the information to criminally investigate or prosecute any alcohol or drug abuse patient.[facility] HospitalIn the event this information is protected by the Federal Confidentiality of Alcohol and Drug Abuse Patient Records regulations: The Federal rules restrict any use of the information to criminally investigate or prosecute any alcohol or drug abuse patient.[facility] HospitalIn the event this information is protected by the Federal Confidentiality of Alcohol and Drug Abuse Patient Records regulations: The Federal rules restrict any use of the information to criminally investigate or prosecute any alcohol or drug abuse patient.[facility] HospitalIn the event this information is protected by the Federal Confidentiality of Alcohol and Drug Abuse Patient Records regulations: The Federal rules restrict any use of the information to criminally investigate or prosecute any alcohol or drug abuse patient.[facility] HospitalIn the event this information is protected by the Federal Confidentiality of Alcohol and Drug Abuse Patient Records regulations: The Federal rules restrict any use of the information to criminally investigate or prosecute any alcohol or drug abuse patient.[facility] HospitalIn the event this information is protected by the Federal Confidentiality of Alcohol and Drug Abuse Patient Records regulations: The Federal rules restrict any use of the information to criminally investigate or prosecute any alcohol or drug abuse patient.[facility] HospitalIn the event this information is protected by the Federal Confidentiality of Alcohol and Drug Abuse Patient Records regulations: The Federal rules restrict any use of the information to criminally investigate or prosecute any alcohol or drug abuse patient.[facility] HospitalIn the event this information is protected by the Federal Confidentiality of Alcohol and Drug Abuse Patient Records regulations: The Federal rules restrict any use of the information to criminally investigate or prosecute any alcohol or drug abuse patient.[facility] HospitalIn the event this information is protected by the Federal Confidentiality of Alcohol and Drug Abuse Patient Records regulations: The Federal rules restrict any use of the information to criminally investigate or prosecute any alcohol or drug abuse patient.[facility] HospitalIn the event this information is protected by the Federal Confidentiality of Alcohol and Drug Abuse Patient Records regulations: The Federal rules restrict any use of the information to criminally investigate or prosecute any alcohol or drug abuse patient.[facility] HospitalIn the event this information is protected by the Federal Confidentiality of Alcohol and Drug Abuse Patient Records regulations: The Federal rules restrict any use of the information to criminally investigate or prosecute any alcohol or drug abuse patient.[facility] HospitalIn the event this information is protected by the Federal Confidentiality of Alcohol and Drug Abuse Patient Records regulations: The Federal rules restrict any use of the information to criminally investigate or prosecute any alcohol or drug abuse patient.[facility] HospitalIn the event this information is protected by the Federal Confidentiality of Alcohol and Drug Abuse Patient Records regulations: The Federal rules restrict any use of the information to criminally investigate or prosecute any alcohol or drug abuse patient.[facility] HospitalIn the event this information is protected by the Federal Confidentiality of Alcohol and Drug Abuse Patient Records regulations: The Federal rules restrict any use of the information to criminally investigate or prosecute any alcohol or drug abuse patient.[facility] HospitalIn the event this information is protected by the Federal Confidentiality of Alcohol and Drug Abuse Patient Records regulations: The Federal rules restrict any use of the information to criminally investigate or prosecute any alcohol or drug abuse patient.[facility] HospitalIn the event this information is protected by the Federal Confidentiality of Alcohol and Drug Abuse Patient Records regulations: The Federal rules restrict any use of the information to criminally investigate or prosecute any alcohol or drug abuse patient.[facility] HospitalIn the event this information is protected by the Federal Confidentiality of Alcohol and Drug Abuse Patient Records regulations: The Federal rules restrict any use of the information to criminally investigate or prosecute any alcohol or drug abuse patient.[facility] HospitalIn the event this information is protected by the Federal Confidentiality of Alcohol and Drug Abuse Patient Records regulations: The Federal rules restrict any use of the information to criminally investigate or prosecute any alcohol or drug abuse patient.[facility] HospitalIn the event this information is protected by the Federal Confidentiality of Alcohol and Drug Abuse Patient Records regulations: The Federal rules restrict any use of the information to criminally investigate or prosecute any alcohol or drug abuse patient.[facility] HospitalIn the event this information is protected by the Federal Confidentiality of Alcohol and Drug Abuse Patient Records regulations: The Federal rules restrict any use of the information to criminally investigate or prosecute any alcohol or drug abuse patient.[facility] HospitalIn the event this information is protected by the Federal Confidentiality of Alcohol and Drug Abuse Patient Records regulations: The Federal rules restrict any use of the information to criminally investigate or prosecute any alcohol or drug abuse patient.[facility] HospitalIn the event this information is protected by the Federal Confidentiality of Alcohol and Drug Abuse Patient Records regulations: The Federal rules restrict any use of the information to criminally investigate or prosecute any alcohol or drug abuse patient.[facility] HospitalIn the event this information is protected by the Federal Confidentiality of Alcohol and Drug Abuse Patient Records regulations: The Federal rules restrict any use of the information to criminally investigate or prosecute any alcohol or drug abuse patient.[facility] HospitalIn the event this information is protected by the Federal Confidentiality of Alcohol and Drug Abuse Patient Records regulations: The Federal rules restrict any use of the information to criminally investigate or prosecute any alcohol or drug abuse patient.[facility] HospitalIn the event this information is protected by the Federal Confidentiality of Alcohol and Drug Abuse Patient Records regulations: The Federal rules restrict any use of the information to criminally investigate or prosecute any alcohol or drug abuse patient.[facility] HospitalIn the event this information is protected by the Federal Confidentiality of Alcohol and Drug Abuse Patient Records regulations: The Federal rules restrict any use of the information to criminally investigate or prosecute any alcohol or drug abuse patient.[facility] HospitalIn the event this information is protected by the Federal Confidentiality of Alcohol and Drug Abuse Patient Records regulations: The Federal rules restrict any use of the information to criminally investigate or prosecute any alcohol or drug abuse patient.[facility] HospitalIn the event this information is protected by the Federal Confidentiality of Alcohol and Drug Abuse Patient Records regulations: The Federal rules restrict any use of the information to criminally investigate or prosecute any alcohol or drug abuse patient.[facility] HospitalIn the event this information is protected by the Federal Confidentiality of Alcohol and Drug Abuse Patient Records regulations: The Federal rules restrict any use of the information to criminally investigate or prosecute any alcohol or drug abuse patient.[facility] HospitalIn the event this information is protected by the Federal Confidentiality of Alcohol and Drug Abuse Patient Records regulations: The Federal rules restrict any use of the information to criminally investigate or prosecute any alcohol or drug abuse patient.[facility] HospitalIn the event this information is protected by the Federal Confidentiality of Alcohol and Drug Abuse Patient Records regulations: The Federal rules restrict any use of the information to criminally investigate or prosecute any alcohol or drug abuse patient.[facility] HospitalIn the event this information is protected by the Federal Confidentiality of Alcohol and Drug Abuse Patient Records regulations: The Federal rules restrict any use of the information to criminally investigate or prosecute any alcohol or drug abuse patient.[facility] HospitalIn the event this information is protected by the Federal Confidentiality of Alcohol and Drug Abuse Patient Records regulations: The Federal rules restrict any use of the information to criminally investigate or prosecute any alcohol or drug abuse patient.[facility] HospitalIn the event this information is protected by the Federal Confidentiality of Alcohol and Drug Abuse Patient Records regulations: The Federal rules restrict any use of the information to criminally investigate or prosecute any alcohol or drug abuse patient.[facility] HospitalIn the event this information is protected by the Federal Confidentiality of Alcohol and Drug Abuse Patient Records regulations: The Federal rules restrict any use of the information to criminally investigate or prosecute any alcohol or drug abuse patient.[facility]In the event this information is protected by the Federal Confidentiality of Alcohol and Drug Abuse Patient Records regulations: The Federal rules restrict any use of the information to criminally investigate or prosecute any alcohol or drug abuse patient.[facility] HospitalIn the event this information is protected by the Federal Confidentiality of Alcohol and Drug Abuse Patient Records regulations: The Federal rules restrict any use of the information to criminally investigate or prosecute any alcohol or drug abuse patient.[facility] HospitalIn the event this information is protected by the Federal Confidentiality of Alcohol and Drug Abuse Patient Records regulations: The Federal rules restrict any use of the information to criminally investigate or prosecute any alcohol or drug abuse patient.[facility] HospitalIn the event this information is protected by the Federal Confidentiality of Alcohol and Drug Abuse Patient Records regulations: The Federal rules restrict any use of the information to criminally investigate or prosecute any alcohol or drug abuse patient.[facility] HospitalIn the event this information is protected by the Federal Confidentiality of Alcohol and Drug Abuse Patient Records regulations: The Federal rules restrict any use of the information to criminally investigate or prosecute any alcohol or drug abuse patient.[facility] HospitalIn the event this information is protected by the Federal Confidentiality of Alcohol and Drug Abuse Patient Records regulations: The Federal rules restrict any use of the information to criminally investigate or prosecute any alcohol or drug abuse patient.[facility] HospitalIn the event this information is protected by the Federal Confidentiality of Alcohol and Drug Abuse Patient Records regulations: The Federal rules restrict any use of the information to criminally investigate or prosecute any alcohol or drug abuse patient.[facility] HospitalIn the event this information is protected by the Federal Confidentiality of Alcohol and Drug Abuse Patient Records regulations: The Federal rules restrict any use of the information to criminally investigate or prosecute any alcohol or drug abuse patient.[facility] HospitalIn the event this information is protected by the Federal Confidentiality of Alcohol and Drug Abuse Patient Records regulations: The Federal rules restrict any use of the information to criminally investigate or prosecute any alcohol or drug abuse patient.[facility] HospitalIn the event this information is protected by the Federal Confidentiality of Alcohol and Drug Abuse Patient Records regulations: The Federal rules restrict any use of the information to criminally investigate or prosecute any alcohol or drug abuse patient.[facility] HospitalIn the event this information is protected by the Federal Confidentiality of Alcohol and Drug Abuse Patient Records regulations: The Federal rules restrict any use of the information to criminally investigate or prosecute any alcohol or drug abuse patient.[facility] the event this information is protected by the Federal Confidentiality of Alcohol and Drug Abuse Patient Records regulations: The Federal rules restrict any use of the information to criminally investigate or prosecute any alcohol or drug abuse patient.[facility] HospitalIn the event this information is protected by the Federal Confidentiality of Alcohol and Drug Abuse Patient Records regulations: The Federal rules restrict any use of the information to criminally investigate or prosecute any alcohol or drug abuse patient.[facility] HospitalIn the event this information is protected by the Federal Confidentiality of Alcohol and Drug Abuse Patient Records regulations: The Federal rules restrict any use of the information to criminally investigate or prosecute any alcohol or drug abuse patient.[facility] the event this information is protected by the Federal Confidentiality of Alcohol and Drug Abuse Patient Records regulations: The Federal rules restrict any use of the information to criminally investigate or prosecute any alcohol or drug abuse patient.[facility] HospitalIn the event this information is protected by the Federal Confidentiality of Alcohol and Drug Abuse Patient Records regulations: The Federal rules restrict any use of the information to criminally investigate or prosecute any alcohol or drug abuse patient.[facility] HospitalIn the event this information is protected by the Federal Confidentiality of Alcohol and Drug Abuse Patient Records regulations: The Federal rules restrict any use of the information to criminally investigate or prosecute any alcohol or drug abuse patient.[facility] HospitalIn the event this information is protected by the Federal Confidentiality of Alcohol and Drug Abuse Patient Records regulations: The Federal rules restrict any use of the information to criminally investigate or prosecute any alcohol or drug abuse patient.[facility] HospitalIn the event this information is protected by the Federal Confidentiality of Alcohol and Drug Abuse Patient Records regulations: The Federal rules restrict any use of the information to criminally investigate or prosecute any alcohol or drug abuse patient.[facility] HospitalIn the event this information is protected by the Federal Confidentiality of Alcohol and Drug Abuse Patient Records regulations: The Federal rules restrict any use of the information to criminally investigate or prosecute any alcohol or drug abuse patient.[facility] HospitalIn the event this information is protected by the Federal Confidentiality of Alcohol and Drug Abuse Patient Records regulations: The Federal rules restrict any use of the information to criminally investigate or prosecute any alcohol or drug abuse patient.[facility] HospitalIn the event this information is protected by the Federal Confidentiality of Alcohol and Drug Abuse Patient Records regulations: The Federal rules restrict any use of the information to criminally investigate or prosecute any alcohol or drug abuse patient.[facility] HospitalIn the event this information is protected by the Federal Confidentiality of Alcohol and Drug Abuse Patient Records regulations: The Federal rules restrict any use of the information to criminally investigate or prosecute any alcohol or drug abuse patient.[facility] HospitalIn the event this information is protected by the Federal Confidentiality of Alcohol and Drug Abuse Patient Records regulations: The Federal rules restrict any use of the information to criminally investigate or prosecute any alcohol or drug abuse patient.[facility] HospitalIn the event this information is protected by the Federal Confidentiality of Alcohol and Drug Abuse Patient Records regulations: The Federal rules restrict any use of the information to criminally investigate or prosecute any alcohol or drug abuse patient.[facility] HospitalIn the event this information is protected by the Federal Confidentiality of Alcohol and Drug Abuse Patient Records regulations: The Federal rules restrict any use of the information to criminally investigate or prosecute any alcohol or drug abuse patient.[facility] HospitalIn the event this information is protected by the Federal Confidentiality of Alcohol and Drug Abuse Patient Records regulations: The Federal rules restrict any use of the information to criminally investigate or prosecute any alcohol or drug abuse patient.[facility] HospitalIn the event this information is protected by the Federal Confidentiality of Alcohol and Drug Abuse Patient Records regulations: The Federal rules restrict any use of the information to criminally investigate or prosecute any alcohol or drug abuse patient.[facility] HospitalIn the event this information is protected by the Federal Confidentiality of Alcohol and Drug Abuse Patient Records regulations: The Federal rules restrict any use of the information to criminally investigate or prosecute any alcohol or drug abuse patient.[facility] HospitalIn the event this information is protected by the Federal Confidentiality of Alcohol and Drug Abuse Patient Records regulations: The Federal rules restrict any use of the information to criminally investigate or prosecute any alcohol or drug abuse patient.[facility] HospitalIn the event this information is protected by the Federal Confidentiality of Alcohol and Drug Abuse Patient Records regulations: The Federal rules restrict any use of the information to criminally investigate or prosecute any alcohol or drug abuse patient.[facility] HospitalIn the event this information is protected by the Federal Confidentiality of Alcohol and Drug Abuse Patient Records regulations: The Federal rules restrict any use of the information to criminally investigate or prosecute any alcohol or drug abuse patient.[facility] HospitalIn the event this information is protected by the Federal Confidentiality of Alcohol and Drug Abuse Patient Records regulations: The Federal rules restrict any use of the information to criminally investigate or prosecute any alcohol or drug abuse patient.[facility] HospitalIn the event this information is protected by the Federal Confidentiality of Alcohol and Drug Abuse Patient Records regulations: The Federal rules restrict any use of the information to criminally investigate or prosecute any alcohol or drug abuse patient.[facility] HospitalIn the event this information is protected by the Federal Confidentiality of Alcohol and Drug Abuse Patient Records regulations: The Federal rules restrict any use of the information to criminally investigate or prosecute any alcohol or drug abuse patient.[facility] HospitalIn the event this information is protected by the Federal Confidentiality of Alcohol and Drug Abuse Patient Records regulations: The Federal rules restrict any use of the information to criminally investigate or prosecute any alcohol or drug abuse patient.[facility] HospitalIn the event this information is protected by the Federal Confidentiality of Alcohol and Drug Abuse Patient Records regulations: The Federal rules restrict any use of the information to criminally investigate or prosecute any alcohol or drug abuse patient.[facility] HospitalIn the event this information is protected by the Federal Confidentiality of Alcohol and Drug Abuse Patient Records regulations: The Federal rules restrict any use of the information to criminally investigate or prosecute any alcohol or drug abuse patient.[facility] HospitalIn the event this information is protected by the Federal Confidentiality of Alcohol and Drug Abuse Patient Records regulations: The Federal rules restrict any use of the information to criminally investigate or prosecute any alcohol or drug abuse patient.[facility] HospitalIn the event this information is protected by the Federal Confidentiality of Alcohol and Drug Abuse Patient Records regulations: The Federal rules restrict any use of the information to criminally investigate or prosecute any alcohol or drug abuse patient.[facility] HospitalIn the event this information is protected by the Federal Confidentiality of Alcohol and Drug Abuse Patient Records regulations: The Federal rules restrict any use of the information to criminally investigate or prosecute any alcohol or drug abuse patient.[facility] HospitalIn the event this information is protected by the Federal Confidentiality of Alcohol and Drug Abuse Patient Records regulations: The Federal rules restrict any use of the information to criminally investigate or prosecute any alcohol or drug abuse patient.[facility] HospitalIn the event this information is protected by the Federal Confidentiality of Alcohol and Drug Abuse Patient Records regulations: The Federal rules restrict any use of the information to criminally investigate or prosecute any alcohol or drug abuse patient.[facility] HospitalIn the event this information is protected by the Federal Confidentiality of Alcohol and Drug Abuse Patient Records regulations: The Federal rules restrict any use of the information to criminally investigate or prosecute any alcohol or drug abuse patient.[facility] HospitalIn the event this information is protected by the Federal Confidentiality of Alcohol and Drug Abuse Patient Records regulations: The Federal rules restrict any use of the information to criminally investigate or prosecute any alcohol or drug abuse patient.[facility] HospitalIn the event this information is protected by the Federal Confidentiality of Alcohol and Drug Abuse Patient Records regulations: The Federal rules restrict any use of the information to criminally investigate or prosecute any alcohol or drug abuse patient.[facility] HospitalIn the event this information is protected by the Federal Confidentiality of Alcohol and Drug Abuse Patient Records regulations: The Federal rules restrict any use of the information to criminally investigate or prosecute any alcohol or drug abuse patient.[facility] HospitalIn the event this information is protected by the Federal Confidentiality of Alcohol and Drug Abuse Patient Records regulations: The Federal rules restrict any use of the information to criminally investigate or prosecute any alcohol or drug abuse patient.[facility] HospitalIn the event this information is protected by the Federal Confidentiality of Alcohol and Drug Abuse Patient Records regulations: The Federal rules restrict any use of the information to criminally investigate or prosecute any alcohol or drug abuse patient.[facility] HospitalIn the event this information is protected by the Federal Confidentiality of Alcohol and Drug Abuse Patient Records regulations: The Federal rules restrict any use of the information to criminally investigate or prosecute any alcohol or drug abuse patient.[facility] HospitalIn the event this information is protected by the Federal Confidentiality of Alcohol and Drug Abuse Patient Records regulations: The Federal rules restrict any use of the information to criminally investigate or prosecute any alcohol or drug abuse patient.[facility] HospitalIn the event this information is protected by the Federal Confidentiality of Alcohol and Drug Abuse Patient Records regulations: The Federal rules restrict any use of the information to criminally investigate or prosecute any alcohol or drug abuse patient.[facility] HospitalIn the event this information is protected by the Federal Confidentiality of Alcohol and Drug Abuse Patient Records regulations: The Federal rules restrict any use of the information to criminally investigate or prosecute any alcohol or drug abuse patient.[facility] HospitalIn the event this information is protected by the Federal Confidentiality of Alcohol and Drug Abuse Patient Records regulations: The Federal rules restrict any use of the information to criminally investigate or prosecute any alcohol or drug abuse patient.[facility] HospitalIn the event this information is protected by the Federal Confidentiality of Alcohol and Drug Abuse Patient Records regulations: The Federal rules restrict any use of the information to criminally investigate or prosecute any alcohol or drug abuse patient.[facility] HospitalIn the event this information is protected by the Federal Confidentiality of Alcohol and Drug Abuse Patient Records regulations: The Federal rules restrict any use of the information to criminally investigate or prosecute any alcohol or drug abuse patient.[facility] HospitalIn the event this information is protected by the Federal Confidentiality of Alcohol and Drug Abuse Patient Records regulations: The Federal rules restrict any use of the information to criminally investigate or prosecute any alcohol or drug abuse patient.[facility] HospitalIn the event this information is protected by the Federal Confidentiality of Alcohol and Drug Abuse Patient Records regulations: The Federal rules restrict any use of the information to criminally investigate or prosecute any alcohol or drug abuse patient.[facility] HospitalIn the event this information is protected by the Federal Confidentiality of Alcohol and Drug Abuse Patient Records regulations: The Federal rules restrict any use of the information to criminally investigate or prosecute any alcohol or drug abuse patient.[facility] HospitalIn the event this information is protected by the Federal Confidentiality of Alcohol and Drug Abuse Patient Records regulations: The Federal rules restrict any use of the information to criminally investigate or prosecute any alcohol or drug abuse patient.[facility] HospitalIn the event this information is protected by the Federal Confidentiality of Alcohol and Drug Abuse Patient Records regulations: The Federal rules restrict any use of the information to criminally investigate or prosecute any alcohol or drug abuse patient.[facility] the event this information is protected by the Federal Confidentiality of Alcohol and Drug Abuse Patient Records regulations: The Federal rules restrict any use of the information to criminally investigate or prosecute any alcohol or drug abuse patient.[facility]In the event this information is protected by the Federal Confidentiality of Alcohol and Drug Abuse Patient Records regulations: The Federal rules restrict any use of the information to criminally investigate or prosecute any alcohol or drug abuse patient.[facility] HospitalIn the event this information is protected by the Federal Confidentiality of Alcohol and Drug Abuse Patient Records regulations: The Federal rules restrict any use of the information to criminally investigate or prosecute any alcohol or drug abuse patient.[facility]In the event this information is protected by the Federal Confidentiality of Alcohol and Drug Abuse Patient Records regulations: The Federal rules restrict any use of the information to criminally investigate or prosecute any alcohol or drug abuse patient.[facility]In the event this information is protected by the Federal Confidentiality of Alcohol and Drug Abuse Patient Records regulations: The Federal rules restrict any use of the information to criminally investigate or prosecute any alcohol or drug abuse patient.[facility] Ordered Prescriptions (unrec ognized section and [...] BE BASED ON THE PRIMARY CLINICAL RECORDS. [facility] CenterGloss[facility]. provides no warranty or guarantee of the accuracy or completeness of information in this document.
--- NOTE | 2023-06-20 10:57 | ED.ABDPAIN1 ---
HPI - Abdominal Pain General Chief Complaint: Nausea/Vomiting/Diarrhea Stated Complaint: NAUSEA, VOMITING Time Seen by Provider: 06/20/23 10:52 Source: patient Mode of arrival: walk-in Limitations: no limitations History of Present Illness HPI narrative: 33-year-old female presents for abdominal pain. It is in her left upper quadrant. She had been at [facility] 2 days ago and had a CAT scan. They thought that she was retaining urine so a Costello catheter was placed. She had been having pain for a few days before that as well. She has not had a fever or injury. The pain is moderate to severe and continuous. She has a feeding tube and has had multiple abdominal surgeries but does not know what her underlying condition is, she tells me that they are still trying to figure that out after 3 years. Related Data Home Medications ?Medication ?Instructions ?Recorded ?Confirmed hydroxyzine HCl 25 mg tablet 25 mg PO BID PRN anxiety 09/17/22 06/14/23 liothyronine 5 mcg tablet 5 mcg PO QDAY 09/17/22 06/14/23 topiramate 100 mg tablet 100 mg PO BID 09/17/22 06/14/23 buspirone 10 mg tablet 10 mg PO TID 06/14/23 06/14/23 linaclotide 290 mcg capsule 290 mcg PO DAILY 06/14/23 06/14/23 (Linzess) methocarbamol 750 mg tablet 750 mg PO TID 06/14/23 06/14/23 metoclopramide HCl 10 mg tablet 10 mg PO AC 06/14/23 06/14/23 albuterol sulfate 90 mcg/actuation 2 puff inhalation Q6H PRN 06/15/23 06/15/23 aerosol inhaler shortness of breath or wheezing escitalopram oxalate 20 mg tablet 20 mg PO DAILY 06/15/23 06/15/23 levothyroxine 75 mcg tablet 75 mcg PO .ACB 06/15/23 06/15/23 mirtazapine 30 mg tablet 30 mg PO .HS 06/15/23 06/15/23 pantoprazole 40 mg tablet,delayed 40 mg PO DAILY 06/15/23 06/15/23 release Previous Rx's ?Medication ?Instructions ?Recorded IV with Additives 30 mls/hr IV 06/16/23 Multivit Infusn,Adult 4,Vit K 30 mls/hr IV Q17H 06/16/23 [Infuvite Adult] 10 ml Nutrin 45 ml feeding tube Q1H #3,000 mL 06/16/23 kblvpmsgon-lxujvszwsnzbl-thnscvtq 1 tab PO Q4H PRN Headache #20 tabs 06/16/23 50 mg-325 mg-40 mg tablet prochlorperazine maleate 10 mg 10 mg PO Q6H PRN nausea and 06/16/23 tablet (Compazine) vomiting #60 tabs sodium 35 mEq-potassium 20 mEq-mag 50 ml IV Q1H 12 months 06/16/23 5 mEq/20 vB-krinikg-hsuzlkt-acet IV (TPN Electrolytes) tramadol 50 mg tablet 50 mg PO Q6H PRN pain #28 tabs 06/16/23 valacyclovir 500 mg tablet 1,000 mg (2 x 500 mg) PO BID #14 06/16/23 tabs Allergies Allergy/AdvReac Type Severity Reaction Status Date / Time adhesive Allergy Rash Verified 06/14/23 13:20 codeine Allergy Vomiting Verified 06/14/23 13:20 NSAIDS (Non-Steroidal Allergy intolerance Verified 06/14/23 13:20 Anti-Inflamma Review of Systems ROS Narrative A ten point review of systems is negative except as noted above. [facility] Medical History (Updated 06/20/23 @ 12:32 by Reji Damon MD) Depression ?F32.A - Depression, unspecified (ICD-10) Asthma ?J45.909 - Unspecified asthma, uncomplicated (ICD-10) Dyspareunia Pelvic pain ?R10.2 - Pelvic and perineal pain (ICD-10) Ovarian cyst ?N83.209 - Unspecified ovarian cyst, unspecified side (ICD-10) PONV (postoperative nausea and vomiting) ?R11.2 - Nausea with vomiting, unspecified (ICD-10) ?Z98.890 - Other specified postprocedural states (ICD-10) PCOS (polycystic ovarian syndrome) ?E28.2 - Polycystic ovarian syndrome (ICD-10) Hypothyroidism (acquired) ?E03.9 - Hypothyroidism, unspecified (ICD-10) Anxiety ?F41.9 - Anxiety disorder, unspecified (ICD-10) GERD (gastroesophageal reflux disease) ?K21.9 - Gastro-esophageal reflux disease without esophagitis (ICD-10) Sleep apnea ?G47.30 - Sleep apnea, unspecified (ICD-10) Anemia ?D64.9 - Anemia, unspecified (ICD-10) Fibromyalgia ?M79.7 - Fibromyalgia (ICD-10) Syncope (07/07/13) ?R55 - Syncope and collapse (ICD-10) Shingles ?B02.9 - Zoster without complications (ICD-10) Headache ?R51.9 - Headache, unspecified (ICD-10) Migraine ?G43.909 - Migraine, unspecified, not intractable, without status migrainosus (ICD-10) Mechanical ileus (01/31/20) ?K56.609 - Unspecified intestinal obstruction, unspecified as to partial versus complete obstruction (ICD-10) COVID-19 (~02/2020) ?U07.1 - COVID-19 (ICD-10) Kidney stones ?N20.0 - Calculus of kidney (ICD-10) Surgical History (Updated 06/14/23 @ 16:55 by Marsha Du) S/P percutaneous endoscopic gastrostomy (PEG) tube placement ?Z93.1 - Gastrostomy status (ICD-10) 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 - Celiac artery compression syndrome (ICD-10) H/O shoulder surgery (2022) ?Z98.890 - Other specified postprocedural states (ICD-10) History of hip surgery ?Z98.890 - Other specified postprocedural states (ICD-10) S/P right knee arthroscopy ?Z98.890 - Other specified postprocedural states (ICD-10) S/P left knee arthroscopy ?Z98.890 - Other specified postprocedural states (ICD-10) Hx of tonsillectomy ?Z90.89 - Acquired absence of other organs (ICD-10) History of thoracic surgery (~2021) ?Z98.890 - Other specified postprocedural states (ICD-10) History of esophagogastroduodenoscopy (EGD) (10/04/13) ?Z98.890 - Other specified postprocedural states (ICD-10) History of cholecystectomy (10/06/13) ?Z90.49 - Acquired absence of other specified parts of digestive tract (ICD-10) Delivery by section (~2017) Delivery by section (01/17/18) H/O colonoscopy (~2018) ?Z98.890 - Other specified postprocedural states (ICD-10) S/P right knee arthroscopy (07/21/18) ?Z98.890 - Other specified postprocedural states (ICD-10) Delivery by section (06/19/19) History of appendectomy (09/25/19) ?Z90.49 - Acquired absence of other specified parts of digestive tract (ICD-10) H/O laparoscopy (11/10/19) ?Z98.890 - Other specified postprocedural states (ICD-10) History of liver biopsy (~04/2020) ?Z98.890 - Other specified postprocedural states (ICD-10) H/O laparoscopy (07/18/20) ?Z98.890 - Other specified postprocedural states (ICD-10) H/O arthroscopy of right knee (08/07/20) ?Z98.890 - Other specified postprocedural states (ICD-10) S/P laparoscopic sleeve gastrectomy (09/03/20) ?Z98.84 - Bariatric surgery status (ICD-10) H/O: hysterectomy (11/12/20) ?Z90.710 - Acquired absence of both cervix and uterus (ICD-10) History of hernia repair (03/20/21) ?Z98.890 - Other specified postprocedural states (ICD-10) ?Z87.19 - Personal history of other diseases of the digestive system (ICD-10) Family History (Updated 06/14/23 @ 16:56 by Marsha Du) Other Family history of cancer Family history of diabetes mellitus Family history of hypertension Family history of myocardial infarction PONV (postoperative nausea and vomiting) Social History (Updated 06/14/23 @ 16:57 by Marsha Du) Within the past year, how often did you have a drink containing alcohol: never Score interpretation: A score less than 3 is consistent with normal alcohol consumption. Smoking status: Never smoker Non-prescribed substance use: denies use Highest level of school completed/degree received: Master's degree Are you now , , , , never or living with a partner: In a typical week, how many times do you talk on the telephone with family, friends, or neighbors: 3 or more times per week How often do you get together with friends or relatives: twice per week How often do you attend pentecostalism or temple services: 4 or more times per year Do you belong to any clubs or organizations such as pentecostalism groups unions, fraternal or athletic groups, or school groups: no Total score: 3 Score interpretation: A score of greater than or equal to 2 indicates the lowest level of social isolation. Little interest or pleasure in doing things: not at all Feeling down, depressed, or hopeless: several days Feel stressed/tense/nervous/anxious/difficulty sleeping: to some extent Do you think of yourself as: straight/heterosexual Gender Identity: female Exam Narrative Exam Narrative: Nurses note and vital signs reviewed and patient is not hypoxic. General: The patient appears well and in no apparent distress. Patient is resting comfortably on cart. Skin: Warm, dry, no pallor noted. There is no rash noted. Head: Normocephalic, atraumatic Eye: Normal conjunctiva, no drainage Ears, Nose, Mouth, and Throat: oral mucosa is moist. Nares patent. Cardiovascular: Regular Rate and Rhythm Respiratory: Patient is in no distress, no accessory muscle use, lungs are clear to auscultation, no wheezing, rales or rhonchi Back: non-tender GI: Feeding tube in place, multiple abdominal scars present. She seems to have some tenderness in the left upper quadrant, no distention or mass Musculoskeletal: The patient has no evidence of calf tenderness, no pitting edema, symmetrical pulses noted bilaterally Neurological: A&O, normal speech Psychiatric: Cooperative Constitutional Vital Signs, click to edit/add: Last Vital Signs Temp 98.0 F 06/20/23 10:21 Pulse 73 06/20/23 12:06 Resp 16 06/20/23 12:06 BP 114/87 06/20/23 12:00 Pulse Ox 100 06/20/23 12:00 O2 Del Method Room Air 06/20/23 10:21 Course Vital Signs Vital signs: Vital Signs Temperature 98.0 F 06/20/23 10:21 Pulse Rate 81 06/20/23 10:21 Respiratory Rate 18 06/20/23 10:21 Blood Pressure 156/96 H 06/20/23 10:21 Pulse Oximetry 100 06/20/23 10:21 Oxygen Delivery Method Room Air 06/20/23 10:21 Temperature 98.0 F 06/20/23 10:21 Pulse Rate 73 06/20/23 12:06 Respiratory Rate 16 06/20/23 12:06 Blood Pressure 114/87 06/20/23 12:00 Pulse Oximetry 100 06/20/23 12:00 Oxygen Delivery Method Room Air 06/20/23 10:21 MDM - Abdominal Pain MDM Narrative Medical decision making narrative: Her laboratory analysis today is negative. 2 days ago she was seen by her surgeon in the emergency department at [facility]. CAT scan showed a distended bladder and a Costello catheter was placed. No other acute findings were found and she was seen by the general surgeon and cleared by them. I do not feel another CAT scan is indicated. She was given symptomatic treatment here and is able to be discharged home. She has a surgery appointment in 2 days. Treatment diagnosis and follow-up were discussed with the patient. Differential Diagnosis Differential diagnosis: Likely abdominal pain, constipation and other (Chronic abdominal pain) Lab Data Attestation: I reviewed the patient's lab results. Labs: Lab Results 06/20/23 Range/Units 10:32 WBC 4.0 (4.0-11.0) 10^3/uL RBC 3.69 L (4.20-5.40) 10^6/uL Hgb 11.4 L (12.0-16.0) g/dL Hct 33.2 L (36.0-48.0) % MCV 90.0 (81.0-99.0) fL MCH 30.9 (26.7-34.0) pg MCHC 34.3 (29.9-35.2) g/dL RDW 13.2 (11.0-15.0) % Plt Count 202 (150-450) 10^3/uL MPV 11.4 (9.5-13.5) fL Neut % (Auto) 45.9 (43.0-75.0) % Lymph % (Auto) 44.4 (20.5-60.0) % [place] % (Auto) 5.7 (1.7-12.0) % Eos % (Auto) 3.5 (0.9-7.0) % Baso % (Auto) 0.5 (0.2-2.0) % Neut # (Auto) 1.8 (1.4-6.5) 10^3/uL Lymph # (Auto) 1.8 (1.2-3.8) 10^3/uL [place] # (Auto) 0.2 L (0.3-0.8) 10^3/uL Eos # (Auto) 0.1 (0.0-0.7) 10^3/uL Baso # (Auto) 0.0 (0.0-0.1) 10^3/uL Abs Immat Gran (auto) 0.00 (0.00-0.03) 10^3/uL Imm/Tot Granulo (auto) 0.0 (0.0-0.5) % Sodium 139 (136-145) mmol/L Potassium 3.4 L (3.5-5.1) mmol/L Chloride 105 (98-107) mmol/L Carbon Dioxide 21.3 (21.0-32.0) mmol/L Anion Gap 16.1 BUN 11.0 (7.0-18.0) mg/dL Creatinine 0.79 (0.55-1.02) mg/dL Est GFR ( Amer) >60 (>=60) Est GFR (Non-Af Amer) >60 (>=60) BUN/Creatinine Ratio 13.9 Glucose 87 (74-106) mg/dL Calcium 9.1 (8.5-10.1) mg/dL Total Bilirubin 0.4 (0.2-1.0) mg/dL Direct Bilirubin 0.1 (0.0-0.2) mg/dL AST 27 (15-37) U/L ALT 18 (14-59) U/L Alkaline Phosphatase 62 (46-116) U/L Total Protein 7.1 (6.4-8.2) g/dL Albumin 3.6 (3.4-5.0) g/dL Globulin 3.5 g/dL Albumin/Globulin Ratio 1.0 Amylase 35 (25-115) U/L Lipase 35.0 (16.0-77.0) U/L Discharge Plan Discharge Stand Alone Forms: Portal Instructions Chief Complaint: Nausea/Vomiting/Diarrhea Clinical Impression: Abdominal pain Patient Disposition: Home, Self-Care Time of Disposition Decision: 12:32 Condition: Good Prescriptions / Home Meds: No Action hydroxyzine HCl 25 mg tablet 25 mg PO BID PRN (Reason: anxiety) liothyronine 5 mcg tablet 5 mcg PO QDAY topiramate 100 mg tablet 100 mg PO BID buspirone 10 mg tablet 10 mg PO TID methocarbamol 750 mg tablet 750 mg PO TID metoclopramide HCl 10 mg tablet 10 mg PO AC Linzess 290 mcg capsule 290 mcg PO DAILY albuterol sulfate 90 mcg/actuation HFA aerosol inhaler 2 puff INHALATION Q6H PRN (Reason: shortness of breath or wheezing) levothyroxine 75 mcg tablet 75 mcg PO .ACB escitalopram oxalate 20 mg tablet 20 mg PO DAILY mirtazapine 30 mg tablet 30 mg PO .HS pantoprazole 40 mg tablet,delayed release (DR/EC) 40 mg PO DAILY hqojunsguu-gxvekudioopvy-orfn 50-325-40 mg Tablet 1 tab PO Q4H PRN (Reason: Headache) Qty: 20 0RF IV with Additives Amino Acids 5 %/Dextrose 20 % [Clinimix 5%-20% Solution] 1000 ML 30 mls/hr IV Ordered By: Thomas Alas MD Last Taken: Unknown Multivit Infusn,Adult 4,Vit K [Infuvite Adult] 10 ML Amino Acids 5 %/Dextrose 20 % [Clinimix 5%-20% Solution] 1000 ML 30 mls/hr IV Q17H Ordered By: Thomas Alas MD Last Taken: Unknown Nutrin 45 ml feeding tube Q1H Qty: 3000 11RF valacyclovir 500 mg Tablet 1,000 mg PO BID Qty: 14 0RF TPN Electrolytes 35-20-5 mEq/20 mL solution 50 ml IV Q1H 360 Days Rx Instructions: On for 18 hours, off for 6 hours prochlorperazine maleate [Compazine] 10 mg tablet 10 mg PO Q6H PRN (Reason: nausea and vomiting) Qty: 60 3RF tramadol 50 mg tablet 50 mg PO Q6H PRN (Reason: pain) Qty: 28 0RF Print Language: Kazakh Instructions: Abdominal Pain (ED) Referrals: JAQUAN MORROW [Primary Care Provider] - 1 week
[2023-06-20] MEDS: 0.9 % SODIUM CHLORIDE 1,000 ML 1000 ML IV (11:05)
[2023-06-20] MEDS: ONDANSETRON PF 4 MG/2 ML VIAL IV ×2 (11:05→12:23)
[2023-06-20] MEDS: MORPHINE SULFATE 4 MG/ML VIAL IV (11:05)
[2023-06-20 11:08] LABS: Basophils Percent Auto 0.5 % (0.2-2.0); Eosinophils Absolute Auto 0.1 10^3/uL (0.0-0.7); Eosinophils Percent Auto 3.5 % (0.9-7.0); Hematocrit 33.2 % (36.0-48.0); Hemoglobin 11.4 g/dL (12.0-16.0); Lymphocytes Absolute Auto 1.8 10^3/uL (1.2-3.8); Lymphocytes Percent Auto 44.4 % (20.5-60.0); Mean Corpuscular HGB Conc 34.3 g/dL (29.9-35.2); Mean Corpuscular Hemoglobin 30.9 pg (26.7-34.0); Mean Platelet Volume 11.4 fL (9.5-13.5); Monocytes Absolute Auto 0.2 10^3/uL (0.3-0.8); Monocytes Percent Auto 5.7 % (1.7-12.0); Neutrophils Absolute Auto 1.8 10^3/uL (1.4-6.5); Neutrophils Percent Auto 45.9 % (43.0-75.0); Platelet Count 202 10^3/uL (150-450); Red Blood Count 3.69 10^6/uL (4.20-5.40); Red Cell Distribution Width 13.2 % (11.0-15.0)
[2023-06-20 11:19] LABS: Anion Gap 16.1; BUN Creatinine Ratio 13.9; Calcium 9.1 mg/dL (8.5-10.1); Carbon Dioxide 21.3 mmol/L (21.0-32.0); Chloride 105 mmol/L (98-107); Estimated GFR (African America >60 (>=60); Estimated GFR (Non-African Ame >60 (>=60); Glucose 87 mg/dL (74-106); Potassium 3.4 mmol/L (3.5-5.1); Sodium 139 mmol/L (136-145)
[2023-06-20 11:24] LABS: Alanine Aminotransferase 18 U/L (14-59); Albumin Level 3.6 g/dL (3.4-5.0); Alkaline Phosphatase 62 U/L (46-116); Amylase 35 U/L (25-115); Aspartate Amino Transferase 27 U/L (15-37); Bilirubin Direct 0.1 mg/dL (0.0-0.2); Bilirubin Total 0.4 mg/dL (0.2-1.0); Globulin 3.5 g/dL; Total Protein 7.1 g/dL (6.4-8.2)
== END 2023-06-20 12:46 | disposition home or self-care (01) ==
PROVIDERS: Emergency Provider Emergency Medicine; PCP Nurse Practitioner
DX: R10.9 Unspecified abdominal pain (principal); E03.9 Hypothyroidism, unspecified; F32.A Depression, unspecified; J45.909 Unspecified asthma, uncomplicated; E28.2 Polycystic ovarian syndrome; F41.9 Anxiety disorder, unspecified; K21.9 Gastro-esophageal reflux disease without esophagitis; G47.30 Sleep apnea, unspecified; M79.7 Fibromyalgia; Z87.442 Personal history of urinary calculi; Z86.16 Personal history of COVID-19; Z93.1 Gastrostomy status; Z98.890 Other specified postprocedural states; Z90.89 Acquired absence of other organs; Z90.49 Acquired absence of other specified parts of digestive tract; Z98.84 Bariatric surgery status; Z90.710 Acquired absence of both cervix and uterus; Z79.890 Hormone replacement therapy; Z79.899 Other long term (current) 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
CPT/HCPCS: 36415; 36592; 80048; 80076; 81001; 82150; 83690; 85025; 96374; 96375; 96376; 99284

== ENCOUNTER 2023-06-23 14:25 | Outpatient (OUT) | payer OTHER, SELFPAY ==
[2023-06-23] MEDS: 0.9 % SODIUM CHLORIDE 2,000 ML 1000 ML IV (14:47)
[2023-06-23 14:59] VITALS: BP 121/78; PULSE 69; TEMP 36.9; O2SAT 98
--- NOTE | 2023-06-23 15:05 | PC.NURSE ---
1535 Arrrival ambulatory, alert and oriented. placed in exam room 1 due to hx of shingles of rt side of face, a few dried lesions noted on rt side of face near eye and forehead here for IVF for dehydration, currently has dual lumen picc rt upper arm TPN infusion via purple port. Normal saline initiated at 999ml hr via red port, flushed red port prior to infusion, excellent blood return noted.
[2023-06-23 15:26] VITALS: BP 110/72; PULSE 74; TEMP 36.3
--- NOTE | 2023-06-23 15:29 | PC.NURSE ---
reclining in chair, extra blanket given for warmth. offers no complaints at this time. IV fluids infusing without any difficulty
--- NOTE | 2023-06-23 15:48 | PC.NURSE ---
1548: Second liter of saline initiated at this time. Pt. given water and juice. Denies c/o or needs.
--- NOTE | 2023-06-23 16:10 | PC.NURSE ---
Pt. given apple juice. Denies c/o or needs.
--- NOTE | 2023-06-25 07:47 | PC.NURSE ---
1650: IVF completed at this time. Picc line flushed with saline, new cap applied. D/c'd amb. to home.
== END 2023-06-23 14:26 | disposition home or self-care (01) ==
LOC: INF 14:29
PROVIDERS: PCP Nurse Practitioner; Visit Provider Family Medicine
DX: E86.0 Dehydration (principal)
CPT/HCPCS: 96360; 96361

== ENCOUNTER 2023-06-24 10:20 | Inpatient (IN) | payer OTHER, SELFPAY ==
[2023-06-24 11:00] VITALS: O2SAT 100
[2023-06-24 11:06] VITALS: BP 120/80; PULSE 66; TEMP 36.5; O2SAT 100; BMI 27.9
[2023-06-24 12:09] VITALS: BP 102/64; PULSE 64; TEMP 36.2; O2SAT 99
--- NOTE | 2023-06-24 12:12 | XR_ITS ---
The [address] [address] Patient Name: JUAN KONG MRN: [id number] date: 1990 Sex: F Assigned Patient Location: [place] Current Patient Location: [place] Accession/Order Number: [id number] Exam Date: 06/24/2023 12:35 Report Date: 06/24/2023 13:45 At the request of: BRITT CALIX Procedure: XR acute abdomen series EXAMINATION: XR acute abdomen series HISTORY: Abd Pain COMPARISON: No relevant comparison available. FINDINGS: LUNGS: No infiltrate, pneumothorax, or pleural effusion. MEDIASTINUM: No abnormal widening. BOWEL GAS PATTERN: Air-filled loops of small and large bowel. Air-fluid levels scattered within the bowel. No abnormal dilation. PEG tube projecting over the stomach. FREE AIR: None. CALCIFICATIONS: None significant. BONES: No fracture or visible bone lesion. OTHER: Negative. XR/XR acute abdomen series IMPRESSION: 1. No acute cardiopulmonary process. 2. No bowel obstruction or ileus. Enteritis cannot be excluded. Electronically authenticated by: ALVERTO PHAM Date: 06/24/2023 13:45
--- NOTE | 2023-06-24 12:33 | PC.NURSE ---
Notified Janeth in pharmacy of Dr Alas request in regards to TPN
[2023-06-24 12:34] LABS: Basophils Absolute Auto 0.1 10^3/uL (0.0-0.1); Basophils Percent Auto 1.1 % (0.2-2.0); Eosinophils Absolute Auto 0.1 10^3/uL (0.0-0.7); Eosinophils Percent Auto 2.9 % (0.9-7.0); Hematocrit 33.3 % (36.0-48.0); Hemoglobin 11.3 g/dL (12.0-16.0); Immature Granulocytes Abs Auto 0.01 10^3/uL (0.00-0.03); Immature Granulocytes Pct Auto 0.2 % (0.0-0.5); Lymphocytes Absolute Auto 1.8 10^3/uL (1.2-3.8); Lymphocytes Percent Auto 40.8 % (20.5-60.0); Mean Corpuscular HGB Conc 33.9 g/dL (29.9-35.2); Mean Corpuscular Volume 91.5 fL (81.0-99.0); Mean Platelet Volume 11.3 fL (9.5-13.5); Monocytes Absolute Auto 0.3 10^3/uL (0.3-0.8); Monocytes Percent Auto 7.3 % (1.7-12.0); Neutrophils Absolute Auto 2.2 10^3/uL (1.4-6.5); Neutrophils Percent Auto 47.7 % (43.0-75.0); Platelet Count 194 10^3/uL (150-450); Red Blood Count 3.64 10^6/uL (4.20-5.40); Red Cell Distribution Width 13.8 % (11.0-15.0); White Blood Count 4.5 10^3/uL (4.0-11.0)
--- NOTE | 2023-06-24 12:35 | P.HP_ITS ---
HPI H&P: HPI History of Present Illness Chief complaint: DEHYDRATION Narrative: Pt seen and evaluated due to increasing N/V - no diarrhea different than usual. Having lightheadedness when standing - Symptoms consistent with admission previous. Started on tPN last time - has been having isues with hypoglycemia even when on TPN . When I saw patient she was mildly uncomfortable, looked more sistressed and uncomfortable from a abd complaint than she did the day before. Admitted to in patient due to dehydration, hypoglycemia symptomatic Opioid HPI Opioid Management Most Recent Opioid Data: Last Pain Scale 4 06/24/23 18:00 Last Pain Assessment 06/24/23 18:00 Last ED Pain Assessment 06/20/23 12:10 Last MAR Pain Assessment 06/24/23 15:25 Last ORT Total Score 3 06/24/23 11:06 Last ORT Risk Category Low Risk 06/24/23 11:06 Review of Systems ROS Status of ROS 10 or more systems reviewed and unremark able except as noted in history and below [facility] Medical History (Updated 06/21/23 @ 00:00 by ) Acute abdomen ?R10.0 - Acute abdomen (ICD-10) Intractable nausea and vomiting ?R11.2 - Nausea with vomiting, unspecified (ICD-10) Intractable abdominal pain ?R10.9 - Unspecified abdominal pain (ICD-10) Depression ?F32.A - Depression, unspecified (ICD-10) Asthma ?J45.909 - Unspecified asthma, uncomplicated (ICD-10) Dyspareunia Pelvic pain ?R10.2 - Pelvic and perineal pain (ICD-10) Ovarian cyst ?N83.209 - Unspecified ovarian cyst, unspecified side (ICD-10) PONV (postoperative nausea and vomiting) ?R11.2 - Nausea with vomiting, unspecified (ICD-10) ?Z98.890 - Other specified postprocedural states (ICD-10) PCOS (polycystic ovarian syndrome) ?E28.2 - Polycystic ovarian syndrome (ICD-10) Hypothyroidism (acquired) ?E03.9 - Hypothyroidism, unspecified (ICD-10) Anxiety ?F41.9 - Anxiety disorder, unspecified (ICD-10) GERD (gastroesophageal reflux disease) ?K21.9 - Gastro-esophageal reflux disease without esophagitis (ICD-10) Sleep apnea ?G47.30 - Sleep apnea, unspecified (ICD-10) Anemia ?D64.9 - Anemia, unspecified (ICD-10) Fibromyalgia ?M79.7 - Fibromyalgia (ICD-10) Syncope (07/07/13) ?R55 - Syncope and collapse (ICD-10) Shingles ?B02.9 - Zoster without complications (ICD-10) Headache ?R51.9 - Headache, unspecified (ICD-10) Migraine ?G43.909 - Migraine, unspecified, not intractable, without status migrainosus (ICD-10) Mechanical ileus (01/31/20) ?K56.609 - Unspecified intestinal obstruction, unspecified as to partial versus complete obstruction (ICD-10) COVID-19 (~02/2020) ?U07.1 - COVID-19 (ICD-10) Kidney stones ?N20.0 - Calculus of kidney (ICD-10) Surgical History (Updated 06/14/23 @ 16:55 by Marsha Du) S/P percutaneous endoscopic gastrostomy (PEG) tube placement ?Z93.1 - Gastrostomy status (ICD-10) 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 - Celiac artery compression syndrome (ICD-10) H/O shoulder surgery (2022) ?Z98.890 - Other specified postprocedural states (ICD-10) History of hip surgery ?Z98.890 - Other specified postprocedural states (ICD-10) S/P right knee arthroscopy ?Z98.890 - Other specified postprocedural states (ICD-10) S/P left knee arthroscopy ?Z98.890 - Other specified postprocedural states (ICD-10) Hx of tonsillectomy ?Z90.89 - Acquired absence of other organs (ICD-10) History of thoracic surgery (~2021) ?Z98.890 - Other specified postprocedural states (ICD-10) History of esophagogastroduodenoscopy (EGD) (10/04/13) ?Z98.890 - Other specified postprocedural states (ICD-10) History of cholecystectomy (10/06/13) ?Z90.49 - Acquired absence of other specified parts of digestive tract (ICD- 10) Delivery by section (~2016) Delivery by section (12/03/18) H/O colonoscopy (~2018) ?Z98.890 - Other specified postprocedural states (ICD-10) S/P right knee arthroscopy (07/21/18) ?Z98.890 - Other specified postprocedural states (ICD-10) Delivery by section (06/19/19) History of appendectomy (09/25/19) ?Z90.49 - Acquired absence of other specified parts of digestive tract (ICD- 10) H/O laparoscopy (11/10/19) ?Z98.890 - Other specified postprocedural states (ICD-10) History of liver biopsy (~04/2020) ?Z98.890 - Other specified postprocedural states (ICD-10) H/O laparoscopy (07/18/20) ?Z98.890 - Other specified postprocedural states (ICD-10) H/O arthroscopy of right knee (08/07/20) ?Z98.890 - Other specified postprocedural states (ICD-10) S/P laparoscopic sleeve gastrectomy (09/03/20) ?Z98.84 - Bariatric surgery status (ICD-10) H/O: hysterectomy (11/12/20) ?Z90.710 - Acquired absence of both cervix and uterus (ICD-10) History of hernia repair (03/20/21) ?Z98.890 - Other specified postprocedural states (ICD-10) ?Z87.19 - Personal history of other diseases of the digestive system (ICD-10) Family History (Updated 06/14/23 @ 16:56 by Marsha Du) Other Family history of cancer Family history of diabetes mellitus Family history of hypertension Family history of myocardial infarction PONV (postoperative nausea and vomiting) Social History (Updated 06/14/23 @ 16:57 by Marsha Du) Within the past year, how often did you have a drink containing alcohol: never Score interpretation: A score less than 3 is consistent with normal alcohol consumption. Smoking status: Never smoker Non-prescribed substance use: denies use Highest level of school completed/degree received: Master's degree Are you now , , , , never or living with a partner: In a typical week, how many times do you talk on the telephone with family, friends, or neighbors: 3 or more times per week How often do you get together with friends or relatives: twice per week How often do you attend jain or church services: 4 or more times per year Do you belong to any clubs or organizations such as jain groups unions, fraternal or athletic groups, or school groups: no Total score: 3 Score interpretation: A score of greater than or equal to 2 indicates the lowest level of social isolation. Little interest or pleasure in doing things: not at all Feeling down, depressed, or hopeless: several days Feel stressed/tense/nervous/anxious/difficulty sleeping: to some extent Do you think of yourself as: straight/heterosexual Gender Identity: female Meds Home Medications and Allergies Home Medications ?Medication ?Instructions ?Recorded ?Confirmed ?Type hydroxyzine HCl 25 mg tablet 25 mg PO BID PRN anxiety 09/17/22 06/24/23 History liothyronine 5 mcg tablet 5 mcg PO QDAY 09/17/22 06/24/23 History topiramate 100 mg tablet 100 mg PO BID 09/17/22 06/24/23 History buspirone 10 mg tablet 10 mg PO TID 06/14/23 06/24/23 History linaclotide 290 mcg capsule 290 mcg PO DAILY 06/14/23 06/24/23 History (Linzess) methocarbamol 750 mg tablet 750 mg PO TID 06/14/23 06/24/23 History metoclopramide HCl 10 mg tablet 10 mg PO AC 06/14/23 06/24/23 History albuterol sulfate 90 mcg/actuation 2 puff inhalation Q6H PRN 06/15/23 06/24/23 History aerosol inhaler shortness of breath or wheezing escitalopram oxalate 20 mg tablet 20 mg PO DAILY 06/15/23 06/24/23 History levothyroxine 75 mcg tablet 75 mcg PO .ACB 06/15/23 06/24/23 History mirtazapine 30 mg tablet 30 mg PO .HS 06/15/23 06/24/23 History pantoprazole 40 mg tablet,delayed 40 mg PO DAILY 06/15/23 06/24/23 History release Nutrin 45 ml feeding tube Q1H #3,000 mL 06/16/23 06/24/23 Rx lvrkhxkaxw-ydekrqbvxfffr-fpqabuwf 1 tab PO Q4H PRN Headache #20 tabs 06/16/23 06/24/23 Rx 50 mg-325 mg-40 mg tablet prochlorperazine maleate 10 mg 10 mg PO Q6H PRN nausea and 06/16/23 06/24/23 Rx tablet (Compazine) vomiting #60 tabs tramadol 50 mg tablet 50 mg PO Q6H PRN pain #28 tabs 06/16/23 06/24/23 Rx acetaminophen 325 mg tablet (Pain 650 mg PO Q4H PRN pain 06/24/23 06/24/23 History Relief (acetaminophen)) Allergies Allergy/AdvReac Type Severity Reaction Status Date / Time adhesive Allergy Rash Verified 06/14/23 13:20 codeine Allergy Vomiting Verified 06/14/23 13:20 NSAIDS (Non-Steroidal Allergy intolerance Verified 06/14/23 13:20 Anti-Inflamma Exam Constitutional Vital Signs, click to edit/add: Last Vital Signs Temp 98.2 F 06/24/23 19:43 Pulse 68 06/24/23 19:43 Resp 18 06/24/23 19:43 BP 98/60 06/24/23 19:43 Pulse Ox 98 06/24/23 19:43 O2 Del Method Room Air 06/24/23 19:43 Documenting provider has reviewed patient's vital signs: yes Common normals: apparent distress (Mildly uncomfortable due to pain in abd) Exam limitations: no altered mental status and no behavioral limitations General appearance: not comfortable HENMT Common normals: oral mucous membranes not moist (Somewhat dry mucous membranes) Chest Common normals: inspection of chest normal and palpation of chest normal Respiratory Common normals: normal respiratory effort and no retractions Cardio Common normals: regular rate, regular rhythm, S1 normal heart sound and no murmurs GI Common normals: negative for Normal to inspection, nondistended, normoactive bowel sounds present (Feeding tube left upper abdomen.) and tender (Improved) Palpation: tender (Less tenderness) and rebound tenderness present (Tenderness improved) Results Labs Labs: Short CBC 06/24/23 Range/Units 12:25 WBC 4.5 (4.0-11.0) 10^3/uL Hgb 11.3 L (12.0-16.0) g/dL Hct 33.3 L (36.0-48.0) % Plt Count 194 (150-450) 10^3/uL BMP 06/24/23 12:25 Sodium 140 Potassium 3.9 Chloride 107 Carbon Dioxide 23.1 BUN 8.0 Creatinine 0.69 Glucose 79 Calcium 8.8 Liver Function 06/24/23 Range/Units 12:25 Total Bilirubin 0.4 (0.2-1.0) mg/dL AST 43 H (15-37) U/L ALT 31 (14-59) U/L Alkaline Phosphatase 61 (46-116) U/L Albumin 3.5 (3.4-5.0) g/dL Urine 06/24/23 Range/Units 16:00 Urine Color Lt. yellow (YELLOW) Urine Clarity Clear (CLEAR) Urine pH 7.5 (5.0-9.0) Ur Specific [place] 1.015 (1.005-1.025) Urine Protein Negative (NEG/TRACE) mg/dL Urine Glucose (UA) Negative (NEGATIVE) mg/dL Assessment and Plan Assessment and Plan (1) Abdominal pain: (2) Intractable nausea and vomiting: (3) GERD (gastroesophageal reflux disease): (4) Intractable abdominal pain: (5) Acute abdomen: Plan Complicated past history of abdominal surgeries. 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 With near syncope when standing will give repeat fluid bolus (Had one the previous day) and then maintenance fluids in addition to starting her home tube feed and TPN regiment. Dehydration with patient describing orthostatic hypotension with near syncope upon standing. COnt with plan as above. Hypoglycemia - Pt has documented glucoses in the 50's while on TPN- Needs close monitoring here and may need to inc concentration of glucose in the TPN. Use CGM. try to mimic home regime - for patient safety - this will take 2-3 days to verify sugars have stabilized, pt home essentially alone for large portions of the day Severe protein calorie malnutrition requiring tube feeds. Home regiment - take albumen as out-pt Generalized anxiety disorder-will need to continue with her current medications of stopping them elicits significant side effects Hypothyroidism-check TSH Back pain, she uses methocarbamol for that Burning with urination - ruben check u/a and if + needs IV ab due to decreased absorption with gastric bypass - Admission status: Failed out-pt treatment (IV fluids 2 L yesterday with out improvement) severe hypoglycemia, this treatment will span 2 midnights - for patient safety, needs inpatient status
[2023-06-24 12:45] LABS: Magnesium 2.2 mg/dL (1.8-2.4)
[2023-06-24 12:49] LABS: Alanine Aminotransferase 31 U/L (14-59); Albumin Globulin Ratio 1.1; Albumin Level 3.5 g/dL (3.4-5.0); Alkaline Phosphatase 61 U/L (46-116); Amylase 38 U/L (25-115); Anion Gap 13.8; Aspartate Amino Transferase 43 U/L (15-37); BUN Creatinine Ratio 11.6; Bilirubin Total 0.4 mg/dL (0.2-1.0); Calcium 8.8 mg/dL (8.5-10.1); Carbon Dioxide 23.1 mmol/L (21.0-32.0); Chloride 107 mmol/L (98-107); Estimated GFR (African America >60 (>=60); Estimated GFR (Non-African Ame >60 (>=60); Globulin 3.2 g/dL; Glucose 79 mg/dL (74-106); Potassium 3.9 mmol/L (3.5-5.1); Sodium 140 mmol/L (136-145); Total Protein 6.7 g/dL (6.4-8.2)
[2023-06-24 12:55] LABS: Lactate/Lactic Acid 0.9 mmol/L (0.4-2.0)
[2023-06-24] MEDS: METHOCARBAMOL 500 MG TABLET 750 MG PO ×2 (13:44→21:25)
[2023-06-24] MEDS: BUSPIRONE HCL 10 MG TABLET PO ×2 (13:45→21:25)
[2023-06-24] MEDS: 0.9 % SODIUM CHLORIDE 1,000 ML 500 ML IV ×2 (13:50→16:07)
[2023-06-24] MEDS: TRAMADOL HCL 50 MG TABLET PO ×2 (14:25→20:33)
[2023-06-24] MEDS: PANTOPRAZOLE SODIUM 40 MG VIAL IV (14:28)
--- NOTE | 2023-06-24 14:36 | SWNOTE1 ---
MIRYAM saw pt in hallway prior to her going to her room. She voiced TPN is going alright at home, she just voiced she was not feeling well. SW to check on pt later today or tomorrow.
[2023-06-24] MEDS: METOCLOPRAMIDE HCL 10 MG TABLET PO ×2 (16:07→21:25)
[2023-06-24 16:50] LABS: Bilirubin Urine NEGATIVE (NEGATIVE); Blood Urine NEGATIVE (NEGATIVE); Clarity Urine CLEAR (CLEAR); Color Urine LT. YELLOW (YELLOW); Glucose Urine UA NEGATIVE (NEGATIVE); Ketones Urine NEGATIVE (NEGATIVE); Leukocyte Esterase Urine SMALL (NEGATIVE); Nitrite Urine POSITIVE (NEGATIVE); Protein Urine NEGATIVE (NEG/TRACE); Specific Gravity Urine 1.015 (1.005-1.025); Urobilinogen Urine 0.2 EU/dL (0.2-1.0); pH Urine 7.5 (5.0-9.0)
[2023-06-24 17:04] LABS: Bacteria Urine MODERATE #/HPF (NONE SEEN); Cast Seen? NONE SEEN #/LPF (NONE SEEN); Crystals Seen? None Seen #/HPF (None Seen); Mucus Urine NONE SEEN (NONE SEEN); RBC Urine 0-2 #/HPF (0-2); Squamous Epithelial Cell Urine RARE #/LPF (NONE/RARE)
[2023-06-24] MEDS: AMINO ACIDS IV (18:15)
[2023-06-24] MEDS: [UNRECOGNIZED DRUG - OTHER] 45 EACH FEED TUBE ×6 (18:15→22:46)
[2023-06-24] MEDS: LACTATED RINGER'S SOLUTION 1,000 ML 100 ML IV (18:15)
[2023-06-24] MEDS: MULTIVIT INFUSN ADULT K IV (18:15)
[2023-06-24] MEDS: DEXTROSE 20% IV (18:15)
[2023-06-24 19:43] VITALS: BP 98/60; PULSE 68; TEMP 36.8; O2SAT 98
[2023-06-24 19:48] VITALS: O2SAT 98
[2023-06-24] MEDS: CEFTRIAXONE 1,000 MG in 0.9 % SODIUM CHLORIDE 50 ML 100 MG IV (20:34)
[2023-06-24] MEDS: MIRTAZAPINE 15 MG TABLET 30 MG PO (21:25)
[2023-06-24] MEDS: LEVOFLOXACIN IN DEXTROSE 5 % 750 MG/150 ML IV.SOLN 100 MG IV (21:25)
[2023-06-24] MEDS: TOPIRAMATE 100 MG TABLET PO (21:26)
[2023-06-25] VITALS (7 sets, daily range): BP systolic 100–130; BP diastolic 62–75; PULSE 70–86; TEMP 36.5–36.9; O2SAT 94–98
[2023-06-25] MEDS: [UNRECOGNIZED DRUG - OTHER] 45 EACH FEED TUBE ×17 (01:22→17:11)
[2023-06-25] MEDS: ONDANSETRON PF 4 MG/2 ML VIAL IV ×3 (03:26→22:13)
[2023-06-25] MEDS: TRAMADOL HCL 50 MG TABLET PO ×4 (03:26→22:13)
[2023-06-25 05:39] LABS: Basophils Percent Auto 1.2 % (0.2-2.0); Eosinophils Absolute Auto 0.2 10^3/uL (0.0-0.7); Eosinophils Percent Auto 4.9 % (0.9-7.0); Hematocrit 29.7 % (36.0-48.0); Hemoglobin 9.9 g/dL (12.0-16.0); Immature Granulocytes Abs Auto 0.01 10^3/uL (0.00-0.03); Immature Granulocytes Pct Auto 0.3 % (0.0-0.5); Lymphocytes Absolute Auto 1.1 10^3/uL (1.2-3.8); Lymphocytes Percent Auto 32.7 % (20.5-60.0); Mean Corpuscular HGB Conc 33.3 g/dL (29.9-35.2); Mean Corpuscular Volume 93.1 fL (81.0-99.0); Mean Platelet Volume 11.6 fL (9.5-13.5); Monocytes Absolute Auto 0.3 10^3/uL (0.3-0.8); Monocytes Percent Auto 8.9 % (1.7-12.0); Neutrophils Absolute Auto 1.7 10^3/uL (1.4-6.5); Platelet Count 156 10^3/uL (150-450); Red Blood Count 3.19 10^6/uL (4.20-5.40); Red Cell Distribution Width 13.9 % (11.0-15.0); White Blood Count 3.3 10^3/uL (4.0-11.0)
[2023-06-25] MEDS: LEVOTHYROXINE SODIUM 75 MCG TABLET PO (05:42)
[2023-06-25] MEDS: METHOCARBAMOL 500 MG TABLET 750 MG PO ×3 (05:42→22:13)
[2023-06-25] MEDS: LACTATED RINGER'S SOLUTION 1,000 ML 100 ML IV ×2 (05:42→15:59)
[2023-06-25] MEDS: BUSPIRONE HCL 10 MG TABLET PO ×3 (05:42→22:13)
[2023-06-25 06:03] LABS: Alanine Aminotransferase 28 U/L (14-59); Albumin Level 2.8 g/dL (3.4-5.0); Alkaline Phosphatase 56 U/L (46-116); Anion Gap 13.2; Aspartate Amino Transferase 36 U/L (15-37); BUN Creatinine Ratio 17.7; Bilirubin Total 0.2 mg/dL (0.2-1.0); Calcium 8.2 mg/dL (8.5-10.1); Carbon Dioxide 22.1 mmol/L (21.0-32.0); Chloride 110 mmol/L (98-107); Estimated GFR (African America >60 (>=60); Estimated GFR (Non-African Ame >60 (>=60); Globulin 2.9 g/dL; Glucose 90 mg/dL (74-106); Potassium 4.3 mmol/L (3.5-5.1); Sodium 141 mmol/L (136-145); Total Protein 5.7 g/dL (6.4-8.2)
--- NOTE | 2023-06-25 07:12 | P.PN_ITS ---
Progress Note: Subjective Subjective Interval history: Patient feels somewhat better today. Less fatigue. However she has not been up and ambulating. Improved urine output but not as much as would be consistent with the amount of fluid she has been given over the previous 48 hours, 4 L IV bolus plus maintenance. Exam Constitutional Vital Signs, click to edit/add: Last Vital Signs Temp 97.7 F 06/25/23 04:00 Pulse 72 06/25/23 04:00 Resp 16 06/25/23 04:00 BP 100/65 06/25/23 04:00 Pulse Ox 97 06/25/23 04:30 O2 Del Method Room Air 06/25/23 04:30 Documenting provider has reviewed patient's vital signs: yes Common normals: apparent distress (She is more comfortable today from a pain standpoint) Exam limitations: no altered mental status and no behavioral limitations General appearance: not comfortable HENMT Common normals: oral mucous membranes not moist (Somewhat dry mucous membranes) Chest Common normals: inspection of chest normal and palpation of chest normal Respiratory Common normals: normal respiratory effort and no retractions Cardio Common normals: regular rate, regular rhythm, S1 normal heart sound and no murmurs GI Common normals: negative for Normal to inspection, nondistended, normoactive bowel sounds present (Feeding tube left upper abdomen.) and tender (Improved) Palpation: tender (Still slightly tender left-sided. But overall improved); no rebound tenderness present (Tenderness improved) Progress Note: Objective Labs Labs: Short CBC 06/24/23 06/25/23 Range/Units 12:25 05:20 WBC 4.5 3.3 L (4.0-11.0) 10^3/uL Hgb 11.3 L 9.9 L (12.0-16.0) g/dL Hct 33.3 L 29.7 L (36.0-48.0) % Plt Count 194 156 (150-450) 10^3/uL BMP 06/24/23 06/25/23 12:25 05:20 Sodium 140 141 Potassium 3.9 4.3 Chloride 107 110 H Carbon Dioxide 23.1 22.1 BUN 8.0 11.0 Creatinine 0.69 0.62 Glucose 79 90 Calcium 8.8 8.2 L Liver Function 06/24/23 06/25/23 Range/Units 12:25 05:20 Total Bilirubin 0.4 0.2 (0.2-1.0) mg/dL AST 43 H 36 (15-37) U/L ALT 31 28 (14-59) U/L Alkaline Phosphatase 61 56 (46-116) U/L Albumin 3.5 2.8 L (3.4-5.0) g/dL Urine 06/24/23 Range/Units 16:00 Urine Color Lt. yellow (YELLOW) Urine Clarity Clear (CLEAR) Urine pH 7.5 (5.0-9.0) Ur Specific [place] 1.015 (1.005-1.025) Urine Protein Negative (NEG/TRACE) mg/dL Urine Glucose (UA) Negative (NEGATIVE) mg/dL Progress Note: A&P Assessment and Plan (1) Abdominal pain: (2) Intractable nausea and vomiting: (3) GERD (gastroesophageal reflux disease): (4) Intractable abdominal pain: (5) Acute abdomen: Plan Admission findings: complicated past history of abdominal surgeries, s/p gastric bypass, ligament release for arterial obstruction. 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 With near syncope when standing will give repeat fluid bolus (Had one the previous day) and then maintenance fluids in addition to starting her home tube feed and TPN regiment. Sugar to drop to 60. Discussed options with patient, will start with a low-dose of Decadron orally. See if this helps to maintain sugars throughout the day. Dehydration with patient describing orthostatic hypotension with near syncope upon standing. Boluses given, Keep Maintenance fluids for today Hypoglycemia - Pt has documented glucoses in the 50's while on TPN at home. Was down to 60 here. Adding low-dose Decadron. Monitor sugar throughout the day. When sugars are stabilized, she can be discharged to home. 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 Home regiment -follow albumen as out-pt Neutropenia - May be result of infectious process or the malnutrition - monitor - non critical Iron deficiency anemia - possibly related to malabsorption with gastric bypass surgery - down today - check occ blood Generalized anxiety disorder-will need to continue with her current medications of stopping them elicits significant side effects Hypothyroidism-check TSH Back pain, she uses methocarbamol for that Acute UTI possible pyelonephritis due to pain radiating to back.. Urine positive for nitrites and leukocytes. Started antibiotics last night. Culture is back tomorrow. Admission status: Failed out-pt treatment (IV fluids 2 L yesterday with out improvement) severe hypoglycemia, this treatment will span 2 midnights - for patient safety, needs inpatient status ? Urinary Catheter Management Urinary Catheter Management Urethral: Cath placed during this visit: no
[2023-06-25] MEDS: DEXAMETHASONE 4 MG TABLET PO (09:13)
[2023-06-25] MEDS: TOPIRAMATE 100 MG TABLET PO ×2 (09:13→22:12)
[2023-06-25] MEDS: ACETAMINOPHEN 500 MG TABLET 1000 MG PO ×2 (09:13→15:59)
[2023-06-25] MEDS: ESCITALOPRAM 10 MG TABLET 20 MG PO (09:13)
[2023-06-25] MEDS: METOCLOPRAMIDE HCL 10 MG TABLET PO ×4 (09:13→22:12)
[2023-06-25] MEDS: LIOTHYRONINE SODIUM 5 MCG TABLET PO (09:13)
--- NOTE | 2023-06-25 11:39 | US_ITS ---
The [address] [address] Patient Name: JUAN KONG MRN: [id number] date: 1990 Sex: F Assigned Patient Location: [place] Current Patient Location: [place] Accession/Order Number: [id number] Exam Date: 06/25/2023 11:40 Report Date: 06/25/2023 13:09 At the request of: BRITT CALIX Procedure: US renal bladder EXAMINATION: US renal bladder HISTORY: Left flank pain - has long COMPARISON: No relevant comparison available. TECHNIQUE: Ultrasound examination was performed of the kidneys and urinary bladder. FINDINGS: RIGHT KIDNEY: No evidence of pelvocaliectasis, mass, or calculi. Normal renal cortical parenchymal echogenicity. Mild cortical thinning, 7 mm in thickness. Color Doppler demonstrates blood flow within the kidney. Kidney: 11.8 x 4.8 x 5.7 cm LEFT KIDNEY: No evidence of pelvocaliectasis, mass, or calculi. Normal renal cortical parenchymal echogenicity. Mild cortical thinning, 8 mm. Color Doppler demonstrates blood flow within the kidney. Kidney: 12.2 x 5.2 x 5.3 cm BLADDER: No visible wall thickening, mass, or calculi. Long catheter within bladder. Post void residual: 254 mL of fluid remained within the urinary bladder 5 minutes after unclamping the Long catheter. US/US renal bladder IMPRESSION: 1. Slight cortical thinning bilaterally. Otherwise unremarkable kidneys. 2. No wall thickening or appreciable inflammatory changes of the urinary bladder. 3. Long catheter was unclamped for approximately 5 minutes to empty the bladder, and 254 mL of fluid still remaining within the bladder. Possible partial obstruction of catheter? Electronically authenticated by: ALVERTO PHAM Date: 06/25/2023 13:09
[2023-06-25] MEDS: PANTOPRAZOLE SODIUM 40 MG VIAL IV (14:59)
--- NOTE | 2023-06-25 16:08 | DIETREC ---
Recommend Clinimix E 07/04 @ 50 mL/hour continuous to provide 1056 kcal and 60 gm PRO in 1200 mL TV. Recommend Nutren 1.0 formula @ 35 mL/hour continuous feed (pt uses at home) OR Jevity 1.5 formula (Pharmacy stock) @25 mL/hour CF. Recommend d/c Lactated Ringer's solution @ 100 mL/hour when TPN begins.
[2023-06-25] MEDS: [UNRECOGNIZED DRUG - OTHER] 237 EACH FEED TUBE ×2 (17:47→23:14)
[2023-06-25] MEDS: AMINO ACIDS IV (17:48)
[2023-06-25] MEDS: DEXTROSE 20% IV (17:48)
[2023-06-25] MEDS: MULTIVIT INFUSN ADULT K IV (17:48)
[2023-06-25] MEDS: MIRTAZAPINE 15 MG TABLET 30 MG PO (22:12)
[2023-06-25] MEDS: CEFTRIAXONE 1,000 MG in 0.9 % SODIUM CHLORIDE 50 ML 100 MG IV (22:12)
[2023-06-25] MEDS: LEVOFLOXACIN IN DEXTROSE 5 % 750 MG/150 ML IV.SOLN 100 MG IV (22:12)
[2023-06-26] VITALS: BP 106/55; PULSE 64; TEMP 36.5; O2SAT 95
[2023-06-26] MEDS: LACTATED RINGER'S SOLUTION 1,000 ML 100 ML IV (01:27)
[2023-06-26 04:00] VITALS: BP 112/65; PULSE 68; TEMP 36.4; O2SAT 96
[2023-06-26] MEDS: TRAMADOL HCL 50 MG TABLET PO (04:30)
[2023-06-26 06:00] LABS: Basophils Percent Auto 0.7 % (0.2-2.0); Eosinophils Absolute Auto 0.1 10^3/uL (0.0-0.7); Eosinophils Percent Auto 2.2 % (0.9-7.0); Hemoglobin 9.6 g/dL (12.0-16.0); Lymphocytes Absolute Auto 1.6 10^3/uL (1.2-3.8); Lymphocytes Percent Auto 37.1 % (20.5-60.0); Mean Corpuscular HGB Conc 33.1 g/dL (29.9-35.2); Mean Corpuscular Hemoglobin 30.9 pg (26.7-34.0); Mean Corpuscular Volume 93.2 fL (81.0-99.0); Mean Platelet Volume 12.6 fL (9.5-13.5); Monocytes Absolute Auto 0.3 10^3/uL (0.3-0.8); Monocytes Percent Auto 8.1 % (1.7-12.0); Neutrophils Absolute Auto 2.2 10^3/uL (1.4-6.5); Neutrophils Percent Auto 51.9 % (43.0-75.0); Platelet Count 173 10^3/uL (150-450); Red Blood Count 3.11 10^6/uL (4.20-5.40); Red Cell Distribution Width 13.7 % (11.0-15.0); White Blood Count 4.2 10^3/uL (4.0-11.0)
[2023-06-26] MEDS: METHOCARBAMOL 500 MG TABLET 750 MG PO (06:15)
[2023-06-26] MEDS: BUSPIRONE HCL 10 MG TABLET PO (06:16)
[2023-06-26] MEDS: LEVOTHYROXINE SODIUM 75 MCG TABLET PO (06:16)
[2023-06-26 06:17] LABS: Alanine Aminotransferase 24 U/L (14-59); Albumin Level 2.9 g/dL (3.4-5.0); Alkaline Phosphatase 52 U/L (46-116); Anion Gap 12.6; Aspartate Amino Transferase 27 U/L (15-37); BUN Creatinine Ratio 17.2; Bilirubin Total 0.2 mg/dL (0.2-1.0); Calcium 8.5 mg/dL (8.5-10.1); Carbon Dioxide 22.1 mmol/L (21.0-32.0); Chloride 109 mmol/L (98-107); Estimated GFR (African America >60 (>=60); Estimated GFR (Non-African Ame >60 (>=60); Glucose 136 mg/dL (74-106); Potassium 3.7 mmol/L (3.5-5.1); Sodium 140 mmol/L (136-145); Total Protein 5.9 g/dL (6.4-8.2)
[2023-06-26] MEDS: ACETAMINOPHEN 500 MG TABLET 1000 MG PO (06:17)
--- NOTE | 2023-06-26 08:47 | P.DS_ITS ---
DS: Providers Provider Date of admission: 06/24/23 12:08 Primary care physician: Thomas Alas MD Consults: 06/24/23 Consult to Dietitian Routine Reason for consultation: poor nutrition and appetite 06/24/23 12:08 Consult to Dietitian Routine Reason for consultation: TPn and tube feed advice Has provider been notified: No 06/24/23 12:09 Consult to Pharmacy Routine Consulting Provider: Reason for consultation: Please Llewellyn me when Med Rec is Updated Has provider been notified: No Occupational Therapy Eval and Treat Routine Reason for consultation: Only if needed for Rehab Has provider been notified: No Physical Therapy Eval and Treat Routine Reason for consultation: Eval and Treat Has provider been notified: No 06/25/23 06:57 Consult to Pharmacy Routine Consulting Provider: Reason for consultation: can we inc glucose in the tpn by 10% lulu? or something close Has provider been notified: No DS: Diagnosis Discharge Diagnosis (1) Abdominal pain: (2) Intractable nausea and vomiting: (3) GERD (gastroesophageal reflux disease): (4) Intractable abdominal pain: (5) Acute abdomen: Plan Admission findings: complicated past history of abdominal surgeries, s/p gastric bypass, ligament release for arterial obstruction. 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 With near syncope when standing will give repeat fluid bolus (Had one the previous day) and then maintenance fluids in addition to starting her home tube feed and TPN regiment. - Improving at the time of DC Dehydration with patient describing orthostatic hypotension with near syncope upon standing. Improving at the time of D/C Hypoglycemia - Pt has documented glucoses in the 50's while on TPN at home. Improving at the time of discharge Severe protein calorie malnutrition requiring tube feeds. Stable at the time of discharge Neutropenia - May be result of infectious process or the malnutrition - monitor - non critical-improved at the time of discharge Iron deficiency anemia - possibly related to malabsorption with gastric bypass surgery - down today - check occ blood-stable at time of discharge Generalized anxiety disorder-continue home regiment Hypothyroidism-follow as an outpatient Back pain, she uses methocarbamol for that-able to no discharge Acute UTI possible pyelonephritis due to pain radiating to back.. Follow-up on urine culture tomorrow Admission status: Failed out-pt treatment (IV fluids 2 L yesterday with out improvement) severe hypoglycemia, this treatment will span 2 midnights - for patient safety, needs inpatient status ? DS: Summary Hospital Course Hospital Course: Patient was seen and evaluated in the office with increasing abdominal pain, lightheadedness upon standing, increasing fatigue, severe hypoglycemia with sugars in the 50s. Patient was made inpatient admission due to the severity of the hypoglycemia and the near syncope. She was placed on her home TPN regime and her home tube feedings. Placed on Decadron here at 4 mg. Her sugars went up in the 150s. Cut back to 2 mg today. With the hydration of 2 L bolus and continuous fluids she feels much improved. Her pain scores yesterday were 6-7, this morning and they are down to 2-3. Still with pain improved, near syncope improving, hypoglycemia resolved will discharge patient home in [facility] it[facility]. Medications see list. Follow-up with me as needed she has multiple specialist that she is following up with. Complicating factor for her was also acute UTI based on UA, cultures are pending, we will follow-up on those tomorrow and contact patient. Time Spent with Patient Time attestation: Total time spent providing and/or coordinating discharge services: Time spent: greater than 30 minutes Exam Constitutional Vital Signs, click to edit/add: Last Vital Signs Temp 97.6 F 06/26/23 04:00 Pulse 68 06/26/23 04:00 Resp 17 06/26/23 04:00 BP 112/65 06/26/23 04:00 Pulse Ox 96 06/26/23 04:00 O2 Del Method Room Air 06/26/23 04:00 Documenting provider has reviewed patient's vital signs: yes Common normals: apparent distress (She is more comfortable today from a pain standpoint) Exam limitations: no altered mental status and no behavioral limitations General appearance: not comfortable HENMT Common normals: oral mucous membranes not moist (Somewhat dry mucous membranes) Chest Common normals: inspection of chest normal and palpation of chest normal Respiratory Common normals: normal respiratory effort and no retractions Cardio Common normals: regular rate, regular rhythm, S1 normal heart sound and no murmurs GI Common normals: negative for Normal to inspection, nondistended, normoactive bowel sounds present (Feeding tube left upper abdomen.) and tender (Improved) Palpation: tender (Much improved from admission); no rebound tenderness present (Tenderness improved) DS: Data Data Completed and Pending Labs on day of discharge: Labs from last 24 hours 06/26/23 04:14 WBC 4.2 RBC 3.11 L Hgb 9.6 L Hct 29.0 L MCV 93.2 MCH 30.9 MCHC 33.1 RDW 13.7 Plt Count 173 MPV 12.6 Neut % (Auto) 51.9 Lymph % (Auto) 37.1 [place] % (Auto) 8.1 Eos % (Auto) 2.2 Baso % (Auto) 0.7 Neut # (Auto) 2.2 Lymph # (Auto) 1.6 [place] # (Auto) 0.3 Eos # (Auto) 0.1 Baso # (Auto) 0.0 Abs Immat Gran (auto) 0.00 Imm/Tot Granulo (auto) 0.0 Sodium 140 Potassium 3.7 Chloride 109 H Carbon Dioxide 22.1 Anion Gap 12.6 BUN 11.0 Creatinine 0.64 Est GFR ( Amer) >60 Est GFR (Non-Af Amer) >60 BUN/Creatinine Ratio 17.2 Glucose 136 H Calcium 8.5 Total Bilirubin 0.2 AST 27 ALT 24 Alkaline Phosphatase 52 Total Protein 5.9 L Albumin 2.9 L Globulin 3.0 Albumin/Globulin Ratio 1.0 Discharge Plan Discharge Disposition: Home, Self-Care Discharge Medications: New dexamethasone 2 mg tablet 2 mg PO DAILY Qty: 30 11RF Continued hydroxyzine HCl 25 mg tablet 25 mg PO BID PRN (Reason: anxiety) liothyronine 5 mcg tablet 5 mcg PO QDAY topiramate 100 mg tablet 100 mg PO BID buspirone 10 mg tablet 10 mg PO TID methocarbamol 750 mg tablet 750 mg PO TID metoclopramide HCl 10 mg tablet 10 mg PO AC Linzess 290 mcg capsule 290 mcg PO DAILY albuterol sulfate 90 mcg/actuation HFA aerosol inhaler 2 puff INHALATION Q6H PRN (Reason: shortness of breath or wheezing) levothyroxine 75 mcg tablet 75 mcg PO .ACB escitalopram oxalate 20 mg tablet 20 mg PO DAILY mirtazapine 30 mg tablet 30 mg PO .HS pantoprazole 40 mg tablet,delayed release (DR/EC) 40 mg PO DAILY zcylycnfwg-tedhudisjkpdy-juaa 50-325-40 mg Tablet 1 tab PO Q4H PRN (Reason: Headache) Qty: 20 0RF Nutrin 45 ml feeding tube Q1H Qty: 3000 11RF prochlorperazine maleate [Compazine] 10 mg tablet 10 mg PO Q6H PRN (Reason: nausea and vomiting) Qty: 60 3RF tramadol 50 mg tablet 50 mg PO Q6H PRN (Reason: pain) Qty: 28 0RF acetaminophen [Pain Relief (acetaminophen)] 325 mg tablet 650 mg PO Q4H PRN (Reason: pain) Print Language: Estonian Forms: Portal Instructions
[2023-06-26] MEDS: DEXAMETHASONE 4 MG TABLET 2 MG PO (09:02)
[2023-06-26] MEDS: TOPIRAMATE 100 MG TABLET PO (09:02)
[2023-06-26] MEDS: LIOTHYRONINE SODIUM 5 MCG TABLET PO (09:02)
[2023-06-26] MEDS: ESCITALOPRAM 10 MG TABLET 20 MG PO (09:02)
[2023-06-26] MEDS: METOCLOPRAMIDE HCL 10 MG TABLET PO (09:02)
--- NOTE | 2023-06-29 09:22 | SWNOTE1 ---
MIRYAM sent over H&P, progress notes, discharge summary, CRF, dc med rec, and PT/OT notes to [facility] for resumption of care.
--- NOTE | 2023-07-01 15:46 | CM.DCFOLLOWU ---
Person spoke with: Abbey Garcia How are you feeling? Doing OK How is your pain?OK Did you understand your discharge instructions?yes Do you have any questions about your discharge instructions?no Were you given any prescriptions at discharge?yes Were you able to get your prescriptions filled?yes Do you understand how to take your medications as ordered?yes Do you have any questions about your follow up appointment and do you plan to keep your follow up appointment? Following up currently with Dr Alas Is there anything else that you would like to discuss? no Questions/Comments/Concerns/Other: None
== END 2023-06-26 09:38 | disposition home or self-care (01) | DRG 640 ==
PROVIDERS: Admitting Provider Family Medicine; PCP Family Medicine; Visit Provider Family Medicine
DX: E16.2 Hypoglycemia, unspecified (principal); E43 Unspecified severe protein-calorie malnutrition; I77.4 Celiac artery compression syndrome; N12 Tubulo-interstitial nephritis, not specified as acute or chronic; E86.0 Dehydration; R11.2 Nausea with vomiting, unspecified; F32.A Depression, unspecified; J45.909 Unspecified asthma, uncomplicated; E03.9 Hypothyroidism, unspecified; K21.9 Gastro-esophageal reflux disease without esophagitis; G47.30 Sleep apnea, unspecified; R30.0 Dysuria; R10.0 Acute abdomen; D70.9 Neutropenia, unspecified; M79.7 Fibromyalgia; D50.9 Iron deficiency anemia, unspecified; Z93.1 Gastrostomy status; F41.1 Generalized anxiety disorder; M54.9 Dorsalgia, unspecified; Z90.49 Acquired absence of other specified parts of digestive tract; Z98.84 Bariatric surgery status; Z90.710 Acquired absence of both cervix and uterus; Z68.27 Body mass index [BMI] 27.0-27.9, adult; Z87.442 Personal history of urinary calculi; Z83.3 Family history of diabetes mellitus; Z86.16 Personal history of COVID-19; Z83.49 Family history of other endocrine, nutritional and metabolic diseases; Z79.890 Hormone replacement therapy; Z79.899 Other long term (current) 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; Z88.6 Allergy status to analgesic agent; Z88.5 Allergy status to narcotic agent; Z91.048 Other nonmedicinal substance allergy status
CPT/HCPCS: 36415; 36592; 74022; 76770; 80053; 81001; 82150; 82948; 83605; 83735; 85025; 87086; 87150; 87186; 94761; 96361; 96365; 96366; 96367; 96368; 96375; 96376; G0328

== ENCOUNTER 2023-06-28 11:05 | Emergency (ER) | payer OTHER, SELFPAY ==
[2023-06-28 11:09] VITALS: BP 142/98; PULSE 94; TEMP 36.3; O2SAT 99; BMI 27.1
--- NOTE | 2023-06-28 11:19 | XR_ITS ---
The [address] [address] Patient Name: JUAN KONG MRN: [id number] date: 1990 Sex: F Assigned Patient Location: ER Current Patient Location: ER Accession/Order Number: [id number] Exam Date: 06/28/2023 11:26 Report Date: 06/28/2023 11:45 At the request of: MASSIMO PRICE Procedure: XR chest 1V EXAM: XR chest 1V HISTORY: . PICC line confirmation . COMPARISON: None. TECHNIQUE: Single view of the chest FINDINGS: PICC line is noted entering from the right arm with the tip over the superior vena cava. No pneumothorax is identified. Heart and vascularity are unremarkable. Lungs are free of focal infiltrates. Grossly no bony abnormality is appreciated. XR/XR chest 1V IMPRESSION: 1. No acute heart or lung disease identified. 2. PICC line noted entering from the right arm with the tip over the superior vena cava. No pneumothorax. Electronically authenticated by: BALDOMERO GUO Date: 06/28/2023 11:45
--- NOTE | 2023-06-28 11:33 | ED_ITS ---
HPI HPI - General Adult General Chief complaint: Nausea/Vomiting/Diarrhea Stated complaint: NAUSEA/VOMITING/DIZZINESS Time Seen by Provider: 06/28/23 11:29 Source: patient Mode of arrival: walk-in Limitations: no limitations History of Present Illness HPI narrative: Patient is a 33-year-old female who is presenting to the ER today after a blacking out episode at home. Patient has a significant amount of medical history. Patient currently has a indwelling Costello catheter secondary to bladder prolapse and urinary retention. Patient has no headache. Patient has no chest pain or shortness of breath. Patient has nausea with no vomiting. No diarrhea. 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 Patient called Dr. Calix and they sent patient to the ER to be reevaluated. Patient does not want to be admitted to the hospital, she would like to go home. Patient states she has also been short of breath with exertion for the couple days as well, patient has no history of PE. Patient is on no blood thinners. Patient does not recall having any type of CTA of her chest in quite some time. She is on no blood thinners. She does not have a uterus. All systems are negative except as noted/marked. All systems reviewed and otherwise negative. Nurses note and vital signs reviewed and patient is not hypoxic. General: The patient appears well and in no apparent distress. Patient is resting comfortably on cart. Patient is not toxic, lethargic, or listless. Patient does not appear to be extremely short of breath, patient states she feels slightly shaky. Skin: Warm, dry, no pallor noted. There is no rash noted. No petechiae, purpura. Head: Normocephalic, atraumatic Eye: Normal conjunctiva, no drainage, EOMI. PERRL Ears, Nose, Mouth, and Throat: oral mucosa is moist. Nares patent. Mouth without vesicles. Cardiovascular: Regular Rate and Rhythm, no murmur, gallop, rub Respiratory: Patient is in no distress, no accessory muscle use, lungs are clear to auscultation, no wheezing, rales or rhonchi Back: non-tender, no CVA tenderness bilaterally to percussion. No CT LS midline pain GI: no tenderness to palpation, no masses appreciated. No rebound, guarding, or rigidity noted. No distention. Patient has PEG tube in place, the area around the PEG tube is clean, dry, intact. Patient has Costello catheter intact, patient's urine in the Costello catheter bag is clean. Musculoskeletal: Patient has full range of motion of all of the extremities, no motor, sensory, or focal neurological deficits Neurological: A&O x4, normal speech Psychiatric: Cooperative Related Data Home Medications ?Medication ?Instructions ?Recorded ?Confirmed hydroxyzine HCl 25 mg tablet 25 mg PO BID PRN anxiety 09/17/22 06/24/23 liothyronine 5 mcg tablet 5 mcg PO QDAY 09/17/22 06/24/23 topiramate 100 mg tablet 100 mg PO BID 09/17/22 06/24/23 buspirone 10 mg tablet 10 mg PO TID 06/14/23 06/24/23 linaclotide 290 mcg capsule 290 mcg PO DAILY 06/14/23 06/24/23 (Linzess) methocarbamol 750 mg tablet 750 mg PO TID 06/14/23 06/24/23 metoclopramide HCl 10 mg tablet 10 mg PO AC 06/14/23 06/24/23 albuterol sulfate 90 mcg/actuation 2 puff inhalation Q6H PRN 06/15/23 06/24/23 aerosol inhaler shortness of breath or wheezing escitalopram oxalate 20 mg tablet 20 mg PO DAILY 06/15/23 06/24/23 levothyroxine 75 mcg tablet 75 mcg PO .ACB 06/15/23 06/24/23 mirtazapine 30 mg tablet 30 mg PO .HS 06/15/23 06/24/23 pantoprazole 40 mg tablet,delayed 40 mg PO DAILY 06/15/23 06/24/23 release acetaminophen 325 mg tablet (Pain 650 mg PO Q4H PRN pain 06/24/23 06/24/23 Relief (acetaminophen)) Previous Rx's ?Medication ?Instructions ?Recorded Nutrin 45 ml feeding tube Q1H #3,000 mL 06/16/23 lctuebqmxa-vhndkvqdbvunv-ntvojwkl 1 tab PO Q4H PRN Headache #20 tabs 06/16/23 50 mg-325 mg-40 mg tablet prochlorperazine maleate 10 mg 10 mg PO Q6H PRN nausea and 06/16/23 tablet (Compazine) vomiting #60 tabs tramadol 50 mg tablet 50 mg PO Q6H PRN pain #28 tabs 06/16/23 cefdinir 300 mg capsule 600 mg (2 x 300 mg) PO DAILY #14 06/26/23 caps dexamethasone 2 mg tablet 2 mg PO DAILY #30 tabs 06/26/23 Allergies Allergy/AdvReac Type Severity Reaction Status Date / Time adhesive Allergy Rash Verified 06/14/23 13:20 codeine Allergy Vomiting Verified 06/14/23 13:20 NSAIDS (Non-Steroidal Allergy intolerance Verified 06/14/23 13:20 Anti-Inflamma Opioid HPI Opioid Management Most Recent Opioid Data: Last Pain Scale 6 06/28/23 11:21 Last Pain Assessment 06/26/23 09:00 Last ORT Total Score 3 06/24/23 11:06 Last ORT Risk Category Low Risk 06/24/23 11:06 [facility] Medical History (Updated 06/28/23 @ 13:54 by Jason Damon MD) Abdominal pain ?R10.9 - Unspecified abdominal pain (ICD-10) Acute abdomen ?R10.0 - Acute abdomen (ICD-10) Intractable nausea and vomiting ?R11.2 - Nausea with vomiting, unspecified (ICD-10) Intractable abdominal pain ?R10.9 - Unspecified abdominal pain (ICD-10) Depression ?F32.A - Depression, unspecified (ICD-10) Asthma ?J45.909 - Unspecified asthma, uncomplicated (ICD-10) Dyspareunia Pelvic pain ?R10.2 - Pelvic and perineal pain (ICD-10) Ovarian cyst ?N83.209 - Unspecified ovarian cyst, unspecified side (ICD-10) PONV (postoperative nausea and vomiting) ?R11.2 - Nausea with vomiting, unspecified (ICD-10) ?Z98.890 - Other specified postprocedural states (ICD-10) PCOS (polycystic ovarian syndrome) ?E28.2 - Polycystic ovarian syndrome (ICD-10) Hypothyroidism (acquired) ?E03.9 - Hypothyroidism, unspecified (ICD-10) Anxiety ?F41.9 - Anxiety disorder, unspecified (ICD-10) GERD (gastroesophageal reflux disease) ?K21.9 - Gastro-esophageal reflux disease without esophagitis (ICD-10) Sleep apnea ?G47.30 - Sleep apnea, unspecified (ICD-10) Anemia ?D64.9 - Anemia, unspecified (ICD-10) Fibromyalgia ?M79.7 - Fibromyalgia (ICD-10) Syncope (07/07/13) ?R55 - Syncope and collapse (ICD-10) Shingles ?B02.9 - Zoster without complications (ICD-10) Headache ?R51.9 - Headache, unspecified (ICD-10) Migraine ?G43.909 - Migraine, unspecified, not intractable, without status migrainosus (ICD-10) Mechanical ileus (01/31/20) ?K56.609 - Unspecified intestinal obstruction, unspecified as to partial versus complete obstruction (ICD-10) COVID-19 (~02/2020) ?U07.1 - COVID-19 (ICD-10) Kidney stones ?N20.0 - Calculus of kidney (ICD-10) Surgical History (Updated 06/14/23 @ 16:55 by Marsha Du) S/P percutaneous endoscopic gastrostomy (PEG) tube placement ?Z93.1 - Gastrostomy status (ICD-10) 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 - Celiac artery compression syndrome (ICD-10) H/O shoulder surgery (2022) ?Z98.890 - Other specified postprocedural states (ICD-10) History of hip surgery ?Z98.890 - Other specified postprocedural states (ICD-10) S/P right knee arthroscopy ?Z98.890 - Other specified postprocedural states (ICD-10) S/P left knee arthroscopy ?Z98.890 - Other specified postprocedural states (ICD-10) Hx of tonsillectomy ?Z90.89 - Acquired absence of other organs (ICD-10) History of thoracic surgery (~2021) ?Z98.890 - Other specified postprocedural states (ICD-10) History of esophagogastroduodenoscopy (EGD) (10/04/13) ?Z98.890 - Other specified postprocedural states (ICD-10) History of cholecystectomy (10/06/13) ?Z90.49 - Acquired absence of other specified parts of digestive tract (ICD- 10) Delivery by section (~2016) Delivery by section (01/17/18) H/O colonoscopy (~2018) ?Z98.890 - Other specified postprocedural states (ICD-10) S/P right knee arthroscopy (07/21/18) ?Z98.890 - Other specified postprocedural states (ICD-10) Delivery by section (06/19/19) History of appendectomy (09/25/19) ?Z90.49 - Acquired absence of other specified parts of digestive tract (ICD- 10) H/O laparoscopy (11/10/19) ?Z98.890 - Other specified postprocedural states (ICD-10) History of liver biopsy (~04/2020) ?Z98.890 - Other specified postprocedural states (ICD-10) H/O laparoscopy (07/18/20) ?Z98.890 - Other specified postprocedural states (ICD-10) H/O arthroscopy of right knee (08/07/20) ?Z98.890 - Other specified postprocedural states (ICD-10) S/P laparoscopic sleeve gastrectomy (09/03/20) ?Z98.84 - Bariatric surgery status (ICD-10) H/O: hysterectomy (11/12/20) ?Z90.710 - Acquired absence of both cervix and uterus (ICD-10) History of hernia repair (03/20/21) ?Z98.890 - Other specified postprocedural states (ICD-10) ?Z87.19 - Personal history of other diseases of the digestive system (ICD-10) Family History (Updated 06/14/23 @ 16:56 by Marsha Du) Other Family history of cancer Family history of diabetes mellitus Family history of hypertension Family history of myocardial infarction PONV (postoperative nausea and vomiting) Social History (Updated 06/14/23 @ 16:57 by Marsha Du) Within the past year, how often did you have a drink containing alcohol: never Score interpretation: A score less than 3 is consistent with normal alcohol consumption. Smoking status: Never smoker Non-prescribed substance use: denies use Highest level of school completed/degree received: Master's degree Are you now , , , , never or living with a partner: In a typical week, how many times do you talk on the telephone with family, friends, or neighbors: 3 or more times per week How often do you get together with friends or relatives: twice per week How often do you attend zoroastrian or latter-day services: 4 or more times per year Do you belong to any clubs or organizations such as zoroastrian groups unions, fraternal or athletic groups, or school groups: no Total score: 3 Score interpretation: A score of greater than or equal to 2 indicates the lowest level of social isolation. Little interest or pleasure in doing things: not at all Feeling down, depressed, or hopeless: several days Feel stressed/tense/nervous/anxious/difficulty sleeping: to some extent Do you think of yourself as: straight/heterosexual Gender Identity: female Exam Constitutional Vital Signs, click to edit/add: Last Vital Signs Temp 97.4 F L 06/28/23 11:09 Pulse 77 06/28/23 12:08 Resp 20 06/28/23 11:09 BP 124/88 06/28/23 11:54 Pulse Ox 98 06/28/23 12:08 O2 Del Method Room Air 06/28/23 12:08 Course Vital Signs Vital signs: Vital Signs Temperature 97.4 F L 06/28/23 11:09 Pulse Rate 94 H 06/28/23 11:09 Respiratory Rate 20 06/28/23 11:09 Blood Pressure 142/98 H 06/28/23 11:09 Pulse Oximetry 99 06/28/23 11:09 Oxygen Delivery Method Room Air 06/28/23 11:09 Temperature 97.4 F L 06/28/23 11:09 Pulse Rate 77 06/28/23 12:08 Respiratory Rate 20 06/28/23 11:09 Blood Pressure 124/88 06/28/23 11:54 Pulse Oximetry 98 06/28/23 12:08 Oxygen Delivery Method Room Air 06/28/23 12:08 Medical Decision Making MDM Narrative Medical decision making narrative: Patient does not look uncomfortable, patient is not having significant retching. Patient says that she cannot vomit, but then she will have some dry heaving instead of vomiting. Patient has TPN running as well, patient has a PICC line to her right upper arm. CTA of the chest shows no acute findings. Patient has minimal pericardial effusion. CTA results of the chest were gone over with patient, along with her lab work. Patient was given 1 L of IV fluid. Patient was given Zofran, Compazine and Bentyl. Patient has intolerance to anti-inflammatories. I have spoken to Dr. CALIX, he is aware of patient visit to the ER. Patient will follow-up with PCP this week. Patient will continue medications as prescribed at home. Patient's orthostatics were negative initially before IV fluids were done. Patient states that she feels better at discharge as well, shortness of breath has improved slightly. Patient will use her albuterol inhalers at home if needed to help with shortness of breath. Patient's lungs have been clear, no wheezing. No hypoxia. Lab Data Lab results reviewed: Yes I reviewed the patient's lab results Labs: Lab Results 06/28/23 06/28/23 Range/Units 11:25 11:48 WBC 4.8 (4.0-11.0) 10^3/uL RBC 3.79 L (4.20-5.40) 10^6/uL Hgb 11.6 L (12.0-16.0) g/dL Hct 34.4 L (36.0-48.0) % MCV 90.8 (81.0-99.0) fL MCH 30.6 (26.7-34.0) pg MCHC 33.7 (29.9-35.2) g/dL RDW 13.5 (11.0-15.0) % Plt Count 242 (150-450) 10^3/uL MPV 11.4 (9.5-13.5) fL Neut % (Auto) 65.9 (43.0-75.0) % Lymph % (Auto) 27.7 (20.5-60.0) % [place] % (Auto) 5.2 (1.7-12.0) % Eos % (Auto) 0.4 L (0.9-7.0) % Baso % (Auto) 0.6 (0.2-2.0) % Neut # (Auto) 3.2 (1.4-6.5) 10^3/uL Lymph # (Auto) 1.3 (1.2-3.8) 10^3/uL [place] # (Auto) 0.3 (0.3-0.8) 10^3/uL Eos # (Auto) 0.0 (0.0-0.7) 10^3/uL Baso # (Auto) 0.0 (0.0-0.1) 10^3/uL Abs Immat Gran (auto) 0.01 (0.00-0.03) 10^3/uL Imm/Tot Granulo (auto) 0.2 (0.0-0.5) % Sodium 139 (136-145) mmol/L Potassium 3.9 (3.5-5.1) mmol/L Chloride 105 (98-107) mmol/L Carbon Dioxide 23.3 (21.0-32.0) mmol/L Anion Gap 14.6 BUN 14.0 (7.0-18.0) mg/dL Creatinine 0.70 (0.55-1.02) mg/dL Est GFR ( Amer) >60 (>=60) Est GFR (Non-Af Amer) >60 (>=60) BUN/Creatinine Ratio 20.0 Glucose 95 (74-106) mg/dL Calcium 9.3 (8.5-10.1) mg/dL Total Bilirubin 0.4 (0.2-1.0) mg/dL AST 70 H (15-37) U/L ALT 54 (14-59) U/L Alkaline Phosphatase 65 (46-116) U/L Troponin I High Sens <4.0 L (4.0-51.3) pg/mL Total Protein 7.7 (6.4-8.2) g/dL Albumin 4.0 (3.4-5.0) g/dL Globulin 3.7 g/dL Albumin/Globulin Ratio 1.1 Lipase 49.0 (16.0-77.0) U/L Urine Color Lt. yellow (YELLOW) Urine Clarity Clear (CLEAR) Urine pH 7.5 (5.0-9.0) Ur Specific [place] 1.010 (1.005-1.025) Urine Protein Negative (NEG/TRACE) mg/dL Urine Glucose (UA) Negative (NEGATIVE) mg/dL Urine Ketones Negative (NEGATIVE) mg/dL Urine Occult Blood Negative (NEGATIVE) Urine Nitrite Negative (NEGATIVE) Urine Bilirubin Negative (NEGATIVE) Urine Urobilinogen 0.2 (0.2-1.0) EU/dL Ur Leukocyte Esterase Negative (NEGATIVE) Urine RBC None seen (0-2) #/HPF Urine WBC None seen (NONE SEEN) #/HPF Ur Squamous Epith Cells Rare (NONE/RARE) #/LPF Urine Crystals None seen (None Seen) #/HPF Urine Bacteria None seen (NONE SEEN) #/HPF Urine Casts None seen (NONE SEEN) #/LPF Urine Mucus None seen (NONE SEEN) Lab work is unremarkable ECG Data Attestation: I personally reviewed and interpreted this ECG as follows: (EKG interpretation. Normal sinus rhythm at 72 beats a minute. Normal axis d eviation. No acute ST elevation, no acute ectopy. QTc of 431. PVC noted) Discharge Plan Discharge Stand Alone Forms: Portal Instructions Chief Complaint: Nausea/Vomiting/Diarrhea Clinical Impression: Dyspnea, Syncope, Nausea Patient Disposition: Home, Self-Care Time of Disposition Decision: 13:54 Condition: Fair Prescriptions / Home Meds: No Action hydroxyzine HCl 25 mg tablet 25 mg PO BID PRN (Reason: anxiety) liothyronine 5 mcg tablet 5 mcg PO QDAY topiramate 100 mg tablet 100 mg PO BID buspirone 10 mg tablet 10 mg PO TID methocarbamol 750 mg tablet 750 mg PO TID metoclopramide HCl 10 mg tablet 10 mg PO AC Linzess 290 mcg capsule 290 mcg PO DAILY albuterol sulfate 90 mcg/actuation HFA aerosol inhaler 2 puff INHALATION Q6H PRN (Reason: shortness of breath or wheezing) levothyroxine 75 mcg tablet 75 mcg PO .ACB escitalopram oxalate 20 mg tablet 20 mg PO DAILY mirtazapine 30 mg tablet 30 mg PO .HS pantoprazole 40 mg tablet,delayed release (DR/EC) 40 mg PO DAILY zgmykogskk-kiauucnrmoqtp-aobw 50-325-40 mg Tablet 1 tab PO Q4H PRN (Reason: Headache) Qty: 20 0RF Nutrin 45 ml feeding tube Q1H Qty: 3000 11RF prochlorperazine maleate [Compazine] 10 mg tablet 10 mg PO Q6H PRN (Reason: nausea and vomiting) Qty: 60 3RF tramadol 50 mg tablet 50 mg PO Q6H PRN (Reason: pain) Qty: 28 0RF acetaminophen [Pain Relief (acetaminophen)] 325 mg tablet 650 mg PO Q4H PRN (Reason: pain) dexamethasone 2 mg tablet 2 mg PO DAILY Qty: 30 11RF cefdinir 300 mg capsule 600 mg PO DAILY Qty: 14 0RF Print Language: German Instructions: Syncope (ED), Acute Nausea and Vomiting (ED), Dyspnea (ED) Additional Instructions: Follow-up with Dr. Calix in the office this week. Continue medications as prescribed A copy of your CTA report was given to as well. You are given IV fluids, Bentyl, Zofran and Compazine to help with symptoms. Referrals: Thomas Calix MD [Primary Care Provider] - 1 week
--- OUTSIDE RECORDS SUMMARY | 2023-06-28 11:35 | XMS_ITS | CCD ---
Author Organization [facility] Care Team Providers Care Boxer Operator Name Role Phone Unavailable Primary Care Provider Unavailabl e Generic Provider MD, No Assigned Pcp Primary Car e Provider Unavailable Allergies Allergy Classification Reported Allergen(s) Allergy Type Date of Onset Reaction(s) Facility (5 sources) Codeine Drug Allergy 3 Nausea/vomiting [facility] (5 sources) Non-steroidal anti-inflammato ry agent Propensity to adverse reactions 3 Nausea/vomiting [facility] Work Phone: Medications Current Medications Medication Drug Class(es) Dates Sig (Normalized) Sig (Original) acetaminophen 500 mg oral tablet (5 sources) Start: 06-23-2022 take 2 tablets by mouth every six hours as needed acetaminophen (Tylenol) 500 mg tablet Take 2 tablets (1,000 mg) by mouth every 6 hours if needed. 0 06/23/2022 Active [id number] 200 actuat albuterol 0.09 mg/actuat metered dose [...] meals. 0 12/01/2022 Active polyethylene glycol 3350 51954 mg powder for oral solution (5 sources) [...] Zabala on 01-15-2023 Atrial Rate 75 BPM [facility] Work Phone: P [place] 95 degrees [facility] Work Phone: P Offset 200 ms [facility] Work Phone: P Onset 149 ms [facility] Work Phone: LA Interval 144 ms [facility] Work Phone: Q Onset 221 ms [facility] Work Phone: QRS Count 12 beats [facility] Work Phone: QRS Duration 84 ms [facility] Work Phone: QT Interval 420 ms [facility] Work Phone: QTC Calculation(Bazett) 469 [facility] Work Phone: QTC Fredericia 452 [facility] Work Phone: R [place] 78 degrees [facility] Work Phone: T [place] 36 degrees [facility] Work Phone: T Offset 431 ms [facility] Work Phone: Ventricular Rate 75 BPM [facility] Work Phone: [facility] Work Phone: ECG 12 leadon 01-15-2023 Normal sinus rhythm Normal ECG No previous ECGs available Confirmed by Leland Zabala ([id number]) on 01/15/2023 2:28:35 PM Leland Bryant MD - 01/15/2023 Normal sinus rhythm Normal ECG No previous ECGs available Confirmed by Leland Zabala ([id number]) on 01/15/2023 2:28:35 PM [facility] Work Phone: CBC W Auto Differential pane l (Bld)on 01-13-2023 Basophils (Bld) [#/Vol] 0.04 10*3/uL [facility] Basophils/100 WBC (Bld) 0.7 % 0.0 - 2.0 % [facility] Eosinophils (Bld) [#/Vol] 0.13 10*3/uL [facility] Eosinophils/100 WBC (Bld) 2.2 % 0.0 - 6.0 % [facility] Erythrocyte distribution width (RBC) [Ratio] 12.4 % 11.5 - 14.5 % [facility] Hematocrit (Bld) [Volume fraction] 36.6 % 36.0 - 46.0 % [facility] Hemoglobin (Bld) [Mass/Vol] 12.6 g/dL 12.0 - 16.0 g/dL [facility] Immature granulocytes (Bld) [#/Vol] 0.01 10*3/uL [facility] Immature granulocytes/100 WBC (Bld) 0.2 % 0.0 - 0.9 % [facility] Comment on above: Immature Granulocyte Count (IG) includes promyelocytes, myelocytes and metamyelocytes but does not include bands. Percent differential counts (%) should be interpreted in the context of the absolute cell counts (cells/UL). Lymphocytes (Bld) [#/Vol] 2.26 10*3/uL [facility] Lymphocytes/100 WBC (Bld) 39.0 % 13.0 - 44.0 % [facility] MCH (RBC) [Entitic mass] 30.7 pg 26.0 - 34.0 pg [facility] MCHC (RBC) [Mass/Vol] 34.4 g/dL 32.0 - 36.0 g/dL [facility] MCV (RBC) [Entitic vol] 89 fL 80 - 100 fL [facility] Monocytes (Bld) [#/Vol] 0.41 10*3/uL [facility] Monocytes/100 WBC (Bld) 7.1 % 2.0 - 10.0 % [facility] Neutrophils (Bld) [#/Vol] 2.95 10*3/uL [facility] Comment on above: Percent differential counts (%) should be interpreted in the context of the absolute cell counts (cells/uL). Neutrophils/100 WBC (Bld) 50.8 % 40.0 - 80.0 % [facility] Nucleated RBC/100 WBC (Bld) [Ratio] 0.0 % [facility] Platelets (Bld) [#/Vol] 222 10*3/uL [facility] RBC (Bld) [#/Vol] 4.11 10*6/uL [facility] WBC (Bld) [#/Vol] 5.8 10*3/uL [facility] Comprehensive metabolic 2000 panelon 01-13-2023 Albumin [Mass/Vol] 4.2 g/dL 3.5 - 5.0 g/dL [facility] ALP (Bld) [Catalytic activity/Vol] 74 U/L 35 - 125 U/L [facility] ALT [Catalytic activity/Vol] 15 U/L 5 - 40 U/L [facility] Anion gap [Moles/Vol] 10 mmol/L NINF - 19 mmol/L [facility] AST [Catalytic activity/Vol] 26 U/L 5 - 40 U/L [facility] Bilirubin [Mass/Vol] 0.5 mg/dL 0.1 - 1.2 mg/dL [facility] Calcium [Mass/Vol] 9.1 mg/dL 8.5 - 10. 4 mg/dL [facility] Chloride [Moles/Vol] 103 mmol/L 97 - 107 mmol/L [facility] CO2 [Moles/Vol] 23 mmol/L Low 24 - 31 mmol/L [facility] Creatinine [Mass/Vol] 0.70 mg/dL 0.40 - 1.60 mg/dL [facility] GFR/1.73 sq M.predicted MDRD (S/P/Bld) [Vol rate/Area] - PINF [facility] Comment on above: Calculations of jessica mated GFR are performed using the 2020 CKD-EPI Study Refit equation without the race variable for the IDMS-Traceable creatinine methods. https://jasn.asnjournals.org/content/early/ASN.4169882 988 Glucose [Mass/Vol] 89 mg/dL 65 - 99 mg/dL [facility] Interpretation and review of laboratory results Abnormal [facility] Potassium [Moles/Vol] 3.5 mmol/L 3.4 - 5.1 mmol/L [facility] Protein [Mass/Vol] 6.9 g/dL 5.9 - 7.9 g/dL [facility] Sodium [Moles/Vol] 136 mmol/L 133 - 145 mmol/L [facility] Urea nitrogen [Mass/Vol] 13 mg/dL 8 - 25 mg/dL [facility] ECG 12-LEADon 01-13-2023 ECG 12-LEAD Ventricular Rate 75 Atrial Rate 75 P-R Interval 144 QRS Duration 84 Q-T Interval 420 QTC Calculation(Bazett) 469 P [place] 95 R [place] 78 T [place] 36 QRS Count 12 Q Onset 221 P Onset 149 P Offset 200 T Offset 431 QTC Fredericia 452 Diagnosis Normal sinus rhythm Normal ECG No previous ECGs available Confirmed by Leland Zabala ([id number]) on 01/15/2023 2:28:35 PM Normal [facility] HCG ( test) IA.rapi d Ql (U)Ordered By: Gayle Gagnon on 01-13-2023 HCG ( test) Ql (U) Negative NEGATIVE [facility] Interpretation and review of laboratory results Normal [facility] Urinalysis complete panel (U )on 01-13-2023 Appearance (U) Clear Clear [facility] Bilirubin (U) [Mass/Vol] Negative NEGATIVE [facility] Color (U) Light-Yellow Light-Yellow, Yellow, Dark-Yellow [facility] Glucose Auto test strip (U) [Mass/Vol] Normal Normal mg/dL [facility] Interpretation and review of laboratory results Normal [facility] Ketones (U) [Mass/Vol] Negative NEGATIVE mg/dL [facility] Leukocyte esterase Auto test strip Ql (U) Negative NEGATIVE [facility] Nitrite Auto test strip Ql (U) Negative NEGATIVE [facility] pH (U) 7.0 [pH] 5.0, 5.5, 6.0, 6.5, 7.0, 7.5, 8.0 [facility] Protein (U) [Mass/Vol] Negative NEGATIVE, 10 (TRACE), 20 (TRACE) mg/dL [facility] RBC (U) [#/Vol] Negative NEGATIVE [facility] Specific gravity (U) [Rel density] 1.010 1.005 - 1.035 [facility] Urobilinogen (U) [Mass/Vol] Normal Normal mg/dL [facility] Vital Signs Date Time Vital Sign Value Performing Clinician Facility 01-14-2023 10:39-0500 Diastolic blood pressure 58 mm[Hg] Sherry Holley MD Work Phone: [facility] 01-14-2023 10:39-0500 Systolic blood pressure 119 mm[Hg] Sherry Holley MD Work Phone: [facility] 01-13-2023 21:55-0500 Diastolic blood pressure 82 mm[Hg] Xiomara Fenoff DO Work Phone: [facility] 01-13-2023 21:55-0500 Systolic blood pressure 122 mm[Hg] Xiomara Fenoff DO Work Phone: [facility] 01-13-2023 20:46-0500 Heart rate 64 /min Xiomara Fenoff DO Work Phone: [facility] 01-13-2023 20:46-0500 Respiratory rate 16 /min Xiomara Fenoff DO Work Phone: [facility] 01-13-2023 20:46-0500 SaO2% (BldA) [Mass fraction] 98 % Xiomara Fenoff DO Work Phone: [facility] 01-13-2023 18:41-0500 Body height 167.6 cm Xiomara Fenoff DO Work Phone: [facility] 01-13-2023 18:41-0500 Body mass index (BMI) [Ratio] 29.05 kg/m2 Xiomara Fenoff DO Work Phone: [facility] 01-13-2023 18:41-0500 Body temperature 97.3 [degF] Xiomara Fenoff DO Work Phone: [facility] 01-13-2023 18:41-0500 Body weight 81.65 kg Xiomara Fenoff DO Work Phone: [facility] Encounters Encounter Date Encounter Type Care Provider Facility Start: 01-14-2023 End: 01-14-2023 Subsequent hospital visit by physician Ludwin Garciav1 [facility] Comment on above: Arrived Start: 01-14-2023 End: 01-14-2023 Office outpatient new 60 minutes Sherry Holley MD Work Phone: [facility] Comment on above: Median arcuate ligam ent syndrome (CMS/HCC) (Primary Dx) Start: 01-13-2023 End: 01-13-2023 Emergency department patient visit Xiomara N Fenoff DO Work Phone: [facility] Comment on above: Generalized abdomina l pain (Primary Dx); Median arcuate ligament syndrome (CMS/HCC) Start: 12-21-2022 End: 12-21-2022 Office outpatient new 60 minutes Sherry Holley MD Work Phone: [facility] Comment on above: Median [...] f 2) Zoster Vaccines (1 of 2) [facility] Start: 09-21-2026 DTaP/Tdap/Td Vaccine s (2 - Td or Tdap) DTaP/Tdap/Td Vaccines (2 - Td or Tdap) [facility] Start: 10-27-2023 Thyroid stimulating hormone measurement TSH Level [facility] Start: 01-14-2023 End: 01-14-2023 Clinical Support [facility] Start: 12-21-2022 End: 12-21-2024 Vascular US mesenteric artery duplex complete Vascular US mesenteric artery duplex complete Vascular Ultrasound Routine Median arcuate ligament syndrome (CMS/HCC) Expected: 12/21/2022 (Approximate), Expires: 12/21/2024 [facility] Service Area Work Phone: Comment on above: Expected: 12/21/2022 (Approximate), Expires: 12/21/2024 Start: 04-15-2021 COVID-19 Vaccine (3 - Booster for Woo series) COVID-19 Vaccine (3 - Booster for Woo series) [facility] Start: 2010 Screening for malign ant neoplasm of cervix [facility] Start: 2007 Hepatitis C screening Hepatitis C [facility] Start: 1990 MMR Vaccines (1 of 1 - Standard series) MMR Vaccines (1 of 1 - Standard series) [facility] Start: 1990 Varicella vaccination Varicell a Vaccines (1 of 2 - 2-dose childhood series) [facility] Start: 1989 Hepatitis B Vaccines (1 of 3 - 3-dose series) Hepatitis B Vaccines (1 of 3 - 3-dose series) [facility] Start: 1989 HIV screening HIV Screening [facility] Start: 1989 Lipid panel Lipid Panel [facility] Start: 1989 Yearly Adult Physical Yearly Adult P hysical [facility] End: 01-13-[address] [facility] Service Area Work Phone: Comment on above: Once for 1 Occurrenc es starting 01/13/2023 until 01/13/2023 Payers Date Payer Category Payer Unknown [employer] [facility] [id number] 2022-Present [address] [place] [address] [id number] Social History Date Type Detail Facility Start: 12-21-2022 Tobacco smoking status NHIS Never smoked tobacco [facility] Work Phone: Start: 12-21-2022 Tobacco use and exposure Smokeless tobacco non-user [facility] Work Phone: Start: 12-21-2022 End: 01-14-2023 Alcohol intake Lifetime non-drinker (finding) [facility] Work Phone: Start: 12-21-2022 End: 01-14-2023 History of Social function [facility] Work Phone: Start: 12-21-2022 End: 01-14-2023 Alcohol Use Disorder Identification Test - Consumption [AUDIT-C] [facility] Work Phone: How often to you hav e a drink containing alcohol? Never [facility] Work Phone: How many standard dr inks containing alcohol do you have on a typical day? 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 She was seen at [facility] by Dr. Valladares and underwent an appendectomy [...] She had a CT angiogram recently at [facility] but this is not available [...] This is with Dr. Ramos over the [facility]. Currently any oral intake will result in [...] to review the CT angiogram done at [facility]. She is going to undergo [...] Dr. Deacon Valladares. documented in this encounter [facility] Work Phone: Emergency department Note 11-29-2023 Xiomara [...] DISCHARGE [place]: [place] [id number] [facility] [id number] In 1 day for previously schedule [...] Luna DO 01/13/232116 documented in this encounter [facility] Work Phone: Physician Emergency department Note 01-13-2023 [...] DISCHARGE PATIENT [place]: [place] [id number] [facility] [address] In 1 day for previously schedule [...] Medical Decision Making Xiomara Luna DO 01/13/232116 [facility] Work Phone: History of Present illness [...] her baseline of normal weight as a 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 She underwent gastric bypass surgery by Dr. [...] coordinate her care. documented in this encounter [facility] Work Phone: Evaluation note Note Date & Type Note Facility Evaluation note Diagnosis Median arcuate ligament syndrome (CMS/HCC)- Primary Celiac artery compression syndrome documented in this encounter [facility] Work Phone: Evaluation note Note Date & Type Note Facility Evaluation note Diagnosis Generalized abdominal pain- Primary Abdominal pain, generalized Median arcuate ligament syndrome (CMS/HCC) Celiac artery compression syndrome documented in this encounter [facility] Work Phone: Evaluation note Note Date & Type Note Facility Evaluation note Diagnosis Median arcuate ligament syndrome (CMS/HCC)- Primary Celiac artery compression syndrome documented in this encounter [facility] Work Phone: Reason for Referral Specialty Diagnoses / Procedures Referred By Contac t Referred To Contact Cardiology Diagnoses Median arcuate ligament syndrome (CMS/HCC) Procedures Vascular [place] mesenteric [place] [address] [place] [address] Referral ID Status Reason Start Date Expiration Date Visits Requested Visits Authorized [id number] Pending Review Perform Procedure 12/21/2022 12/21/2023 1 [...] Care Teams (unrecognized sec tion and content) Boxer Operator Relationship Specialty Start Date End Date Generic Provider, No Assigned PcpMD [address] [place] [address] PCP - General Family Medicine 01/02/23 Boxer Operator Relationship Specialty Start Date End Date Generic Provider, No Assigned MD Gabe [address] [place] [address] PCP - General Family Medicine 01/02/23 Boxer Operator Relationship Specialty Start Date End Date Generic Provider, No Assigned MD Gabe [address] [place] [address] PCP - General Family Medicine 01/02/23 Boxer Operator Relationship Specialty Start Date End Date Generic Provider, No Assigned MD Gabe [address] [place] [address] PCP - General Family Medicine 01/02/23 INFORMATION SOURCE (unrecogn ized section and content) DATE CREATED AUTHOR 01/17/2023 [facility] FOR RECORDS PERTAINING TO PATIENTS WHO ARE [...] BE BASED ON THE PRIMARY CLINICAL RECORDS. [facility] [employer] [facility]. provides no warranty or guarantee of the accuracy or completeness of information in this document.
[2023-06-28 11:50] LABS: Basophils Percent Auto 0.6 % (0.2-2.0); Eosinophils Percent Auto 0.4 % (0.9-7.0); Hematocrit 34.4 % (36.0-48.0); Hemoglobin 11.6 g/dL (12.0-16.0); Immature Granulocytes Abs Auto 0.01 10^3/uL (0.00-0.03); Immature Granulocytes Pct Auto 0.2 % (0.0-0.5); Lymphocytes Absolute Auto 1.3 10^3/uL (1.2-3.8); Lymphocytes Percent Auto 27.7 % (20.5-60.0); Mean Corpuscular HGB Conc 33.7 g/dL (29.9-35.2); Mean Corpuscular Hemoglobin 30.6 pg (26.7-34.0); Mean Corpuscular Volume 90.8 fL (81.0-99.0); Mean Platelet Volume 11.4 fL (9.5-13.5); Monocytes Absolute Auto 0.3 10^3/uL (0.3-0.8); Monocytes Percent Auto 5.2 % (1.7-12.0); Neutrophils Absolute Auto 3.2 10^3/uL (1.4-6.5); Neutrophils Percent Auto 65.9 % (43.0-75.0); Platelet Count 242 10^3/uL (150-450); Red Blood Count 3.79 10^6/uL (4.20-5.40); Red Cell Distribution Width 13.5 % (11.0-15.0); White Blood Count 4.8 10^3/uL (4.0-11.0)
--- NOTE | 2023-06-28 11:53 | CT_ITS ---
The [address] [address] Patient Name: JUAN KONG MRN: [id number] date: 1990 Sex: F Assigned Patient Location: ER Current Patient Location: ER Accession/Order Number: [id number] Exam Date: 06/28/2023 12:29 Report Date: 06/28/2023 13:19 At the request of: MASSIMO PRICE Procedure: CT angio chest EXAM: CT angio chest HISTORY: rule out PE chest pain COMPARISON: CT angiography chest study dated 04/04/2021, chest study performed earlier today on 06/28/2023 TECHNIQUE: CT angiography chest study was performed with the use of intravenous contrast. Multiple axial images were obtained. Reformatted coronal and sagittal images were obtained and reviewed. FINDINGS: No obvious focal filling defects within the pulmonary arteries to suggest emboli. Thoracic aorta appears grossly unremarkable without evidence of aneurysm, dissection or leak. No obvious coronary artery calcifications are noted. Minimal pericardial effusion, similar to the prior study. No evidence of mediastinal, hilar or axillary lymphadenopathy. Visualized thyroid gland appears grossly unremarkable. PICC line on the right unremarkably positioned. No obvious pneumothorax. Areas of mild reticular prominence in the lower lobes compatible with atelectatic and/or fibrotic changes. No obvious focal infiltrate or consolidation. No significant pleural thickening. No evidence of pleural effusion. Chest wall appears grossly intact. Scattered areas of decreased attenuation in the liver like representing cysts, measuring up to 1.6 cm. These findings appear overall mildly progressed compared to the prior exam though of doubtful acute significance. Inhomogeneity of the spleen similar to prior study likely related to vascular differential. Postoperative changes seen about the stomach and small bowel grossly unremarkable in appearance, postoperative changes are noted previously. Minimal degenerative changes in the dorsal spine. CT/CT angio chest IMPRESSION: CT angiography chest study fails to demonstrate definite evidence of pulmonary emboli. Mild atelectatic and/or fibrotic changes in the lower lobes. Likely hepatic cysts overall mildly progressed since prior exam. Minimal pericardial effusion suggested, similar to the prior study. Electronically authenticated by: EUGENE URBAN Date: 06/28/2023 13:19
[2023-06-28 11:54] VITALS: BP 124/88; BP 127/89; BP 131/79; PULSE 78; PULSE 86; PULSE 90
[2023-06-28 11:58] LABS: Bilirubin Urine NEGATIVE (NEGATIVE); Blood Urine NEGATIVE (NEGATIVE); Clarity Urine CLEAR (CLEAR); Color Urine LT. YELLOW (YELLOW); Glucose Urine UA NEGATIVE (NEGATIVE); Ketones Urine NEGATIVE (NEGATIVE); Leukocyte Esterase Urine NEGATIVE (NEGATIVE); Nitrite Urine NEGATIVE (NEGATIVE); Protein Urine NEGATIVE (NEG/TRACE); Urobilinogen Urine 0.2 EU/dL (0.2-1.0); pH Urine 7.5 (5.0-9.0)
[2023-06-28] MEDS: 0.9 % SODIUM CHLORIDE 1,000 ML 1000 ML IV (11:59)
[2023-06-28 12:05] LABS: Bacteria Urine NONE SEEN #/HPF (NONE SEEN); Cast Seen? NONE SEEN #/LPF (NONE SEEN); Crystals Seen? None Seen #/HPF (None Seen); Mucus Urine NONE SEEN (NONE SEEN); RBC Urine NONE SEEN #/HPF (0-2); Squamous Epithelial Cell Urine RARE #/LPF (NONE/RARE); WBC Urine NONE SEEN #/HPF (NONE SEEN)
[2023-06-28] MEDS: IPRATROPIUM/ALBUTEROL SULFATE 3 ML AMPUL.NEB IH (12:07)
[2023-06-28 12:08] VITALS: PULSE 77; O2SAT 98
[2023-06-28 12:11] LABS: Alanine Aminotransferase 54 U/L (14-59); Albumin Globulin Ratio 1.1; Alkaline Phosphatase 65 U/L (46-116); Anion Gap 14.6; Aspartate Amino Transferase 70 U/L (15-37); Bilirubin Total 0.4 mg/dL (0.2-1.0); Calcium 9.3 mg/dL (8.5-10.1); Carbon Dioxide 23.3 mmol/L (21.0-32.0); Chloride 105 mmol/L (98-107); Estimated GFR (African America >60 (>=60); Estimated GFR (Non-African Ame >60 (>=60); Globulin 3.7 g/dL; Glucose 95 mg/dL (74-106); Potassium 3.9 mmol/L (3.5-5.1); Sodium 139 mmol/L (136-145); Total Protein 7.7 g/dL (6.4-8.2)
[2023-06-28 12:13] LABS: Troponin I High Sensitivity <4.0 pg/mL (4.0-51.3)
[2023-06-28] MEDS: DICYCLOMINE HCL 20 MG/2 ML VIAL IM (13:12)
[2023-06-28] MEDS: ONDANSETRON PF 4 MG/2 ML VIAL IV (13:12)
[2023-06-28] MEDS: PROCHLORPERAZINE 10 MG/2 ML VIAL 5 MG IV (13:12)
[2023-06-28 14:07] VITALS: BP 128/78; PULSE 84; O2SAT 98
--- NOTE | 2023-06-28 14:51 | ECG_ITS ---
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
== END 2023-06-28 14:12 | disposition home or self-care (01) ==
PROVIDERS: Emergency Provider Emergency Medicine; PCP Family Medicine
DX: R55 Syncope and collapse (principal); R06.00 Dyspnea, unspecified; R11.0 Nausea; R33.9 Retention of urine, unspecified; N81.10 Cystocele, unspecified; Z98.84 Bariatric surgery status; Z90.710 Acquired absence of both cervix and uterus; Z79.899 Other long term (current) 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; J45.909 Unspecified asthma, uncomplicated; F32.A Depression, unspecified; E28.2 Polycystic ovarian syndrome; E03.9 Hypothyroidism, unspecified; F41.9 Anxiety disorder, unspecified; G47.30 Sleep apnea, unspecified; Z86.16 Personal history of COVID-19; Z87.442 Personal history of urinary calculi; Z93.1 Gastrostomy status; I77.4 Celiac artery compression syndrome; Z90.49 Acquired absence of other specified parts of digestive tract
CPT/HCPCS: 36415; 36592; 71045; 71275; 80053; 81001; 83690; 84484; 85025; 87086; 93005; 94640; 96361; 96372; 96374; 96375; 99285; J0500; Q9967

== ENCOUNTER 2023-07-08 14:31 | Emergency (ER) | payer OTHER, SELFPAY ==
[2023-07-08 14:32] VITALS: BP 134/86; PULSE 91; TEMP 36.7; O2SAT 100; BMI 27.1
--- NOTE | 2023-07-08 14:41 | CT_ITS ---
The [address] [address] Patient Name: JUAN KONG MRN: [id number] date: 1990 Sex: F Assigned Patient Location: ER Current Patient Location: ER Accession/Order Number: [id number] Exam Date: 07/08/2023 15:29 Report Date: 07/08/2023 15:49 At the request of: LESLIE TERRAZAS Procedure: CT abdomen pelvis wo con EXAMINATION: CT abdomen pelvis wo con HISTORY: right flank pain, r/o stone COMPARISON: No relevant comparison available. TECHNIQUE: Axial, Coronal, and Sagittal images were created without IV contrast. Dose reduction techniques were achieved by using automated exposure control and/or adjustment of mA and/or kV according to patient size and/or use of iterative reconstruction technique. FINDINGS: LUNG BASES: No visible pulmonary or pleural disease. LIVER: Numerous hypodensities the larger lesions are cysts the smaller lesions are too small to characterize BILIARY: Surgical clips from cholecystectomy PANCREAS: No lesion, fluid collection, ductal dilatation, or atrophy. SPLEEN: No enlargement or focal lesion. ADRENALS: No mass or enlargement. KIDNEYS: No mass, obstruction, or calcification. BOWEL/MESENTERY: Suture line along the stomach. Percutaneous jejunostomy catheter. Nonobstructive bowel gas pattern. Suture line in the cecum suggest prior appendectomy AORTA/VASCULAR: No aortic aneurysm RETROPERITONEUM: No mass or adenopathy. LYMPH NODES: No adenopathy. URINARY BLADDER: No visible focal wall thickening, lesion, or calculus. PELVIC ORGANS: Hysterectomy ABDOMINAL WALL: No mass or hernia. BONES: No bony lesion or fracture. OTHER: Negative. CT/CT abdomen pelvis wo con IMPRESSION: No obstructive uropathy Electronically authenticated by: BALDOMERO MARCELO Date: 07/08/2023 15:49
--- NOTE | 2023-07-08 14:45 | ED_ITS ---
HPI HPI - General Adult General Chief complaint: Abdominal Pain Stated complaint: FLANK PAIN Time Seen by Provider: 07/08/23 14:33 Source: patient Mode of arrival: ambulance Limitations: no limitations History of Present Illness HPI narrative: 33-year-old female presents to the emergency department for right flank pain. There is been no injury that she has a history of kidney stones and thinks she may be passing another 1. No gross hematuria. The pain is moderate to severe and now continuous and she has had it for the last day or 2. She was sent here by her PCP. Related Data Home Medications ?Medication ?Instructions ?Recorded ?Confirmed hydroxyzine HCl 25 mg tablet 25 mg PO BID PRN anxiety 09/17/22 06/24/23 liothyronine 5 mcg tablet 5 mcg PO QDAY 09/17/22 06/24/23 topiramate 100 mg tablet 100 mg PO BID 09/17/22 06/24/23 buspirone 10 mg tablet 10 mg PO TID 06/14/23 06/24/23 linaclotide 290 mcg capsule 290 mcg PO DAILY 06/14/23 06/24/23 (Linzess) methocarbamol 750 mg tablet 750 mg PO TID 06/14/23 06/24/23 metoclopramide HCl 10 mg tablet 10 mg PO AC 06/14/23 06/24/23 albuterol sulfate 90 mcg/actuation 2 puff inhalation Q6H PRN 06/15/23 06/24/23 aerosol inhaler shortness of breath or wheezing escitalopram oxalate 20 mg tablet 20 mg PO DAILY 06/15/23 06/24/23 levothyroxine 75 mcg tablet 75 mcg PO .ACB 06/15/23 06/24/23 mirtazapine 30 mg tablet 30 mg PO .HS 06/15/23 06/24/23 pantoprazole 40 mg tablet,delayed 40 mg PO DAILY 06/15/23 06/24/23 release acetaminophen 325 mg tablet (Pain 650 mg PO Q4H PRN pain 06/24/23 06/24/23 Relief (acetaminophen)) doxycycline monohydrate 100 mg 100 mg PO Q12H 07/08/23 07/08/23 tablet Previous Rx's ?Medication ?Instructions ?Recorded Nutrin 45 ml feeding tube Q1H #3,000 mL 06/16/23 vuzexqgkzo-rnjnqgwwrdqfo-ybqdjjom 1 tab PO Q4H PRN Headache #20 tabs 06/16/23 50 mg-325 mg-40 mg tablet prochlorperazine maleate 10 mg 10 mg PO Q6H PRN nausea and 06/16/23 tablet (Compazine) vomiting #60 tabs tramadol 50 mg tablet 50 mg PO Q6H PRN pain #28 tabs 06/16/23 cefdinir 300 mg capsule 600 mg (2 x 300 mg) PO DAILY #14 06/26/23 caps dexamethasone 2 mg tablet 2 mg PO DAILY #30 tabs 06/26/23 ondansetron 4 mg disintegrating 4 mg PO Q6H PRN nausea and 07/08/23 tablet vomiting #20 tabs Allergies Allergy/AdvReac Type Severity Reaction Status Date / Time adhesive Allergy Rash Verified 06/14/23 13:20 codeine Allergy Vomiting Verified 06/14/23 13:20 NSAIDS (Non-Steroidal Allergy intolerance Verified 06/14/23 13:20 Anti-Inflamma Opioid HPI Opioid Management Most Recent Opioid Data: Last Pain Scale 8 07/08/23 14:52 Last MAR Pain Assessment 07/08/23 14:52 Last ORT Total Score 3 06/24/23 11:06 Last ORT Risk Category Low Risk 06/24/23 11:06 Review of Systems ROS Narrative A ten point review of systems is negative except as noted above. [facility] Medical History (Updated 07/08/23 @ 15:56 by Reji Damon MD) Abdominal pain ?R10.9 - Unspecified abdominal pain (ICD-10) Acute abdomen ?R10.0 - Acute abdomen (ICD-10) Intractable nausea and vomiting ?R11.2 - Nausea with vomiting, unspecified (ICD-10) Intractable abdominal pain ?R10.9 - Unspecified abdominal pain (ICD-10) Depression ?F32.A - Depression, unspecified (ICD-10) Asthma ?J45.909 - Unspecified asthma, uncomplicated (ICD-10) Dyspareunia Pelvic pain ?R10.2 - Pelvic and perineal pain (ICD-10) Ovarian cyst ?N83.209 - Unspecified ovarian cyst, unspecified side (ICD-10) PONV (postoperative nausea and vomiting) ?R11.2 - Nausea with vomiting, unspecified (ICD-10) ?Z98.890 - Other specified postprocedural states (ICD-10) PCOS (polycystic ovarian syndrome) ?E28.2 - Polycystic ovarian syndrome (ICD-10) Hypothyroidism (acquired) ?E03.9 - Hypothyroidism, unspecified (ICD-10) Anxiety ?F41.9 - Anxiety disorder, unspecified (ICD-10) GERD (gastroesophageal reflux disease) ?K21.9 - Gastro-esophageal reflux disease without esophagitis (ICD-10) Sleep apnea ?G47.30 - Sleep apnea, unspecified (ICD-10) Anemia ?D64.9 - Anemia, unspecified (ICD-10) Fibromyalgia ?M79.7 - Fibromyalgia (ICD-10) Syncope (07/07/13) ?R55 - Syncope and collapse (ICD-10) Shingles ?B02.9 - Zoster without complications (ICD-10) Headache ?R51.9 - Headache, unspecified (ICD-10) Migraine ?G43.909 - Migraine, unspecified, not intractable, without status migrainosus (ICD-10) Mechanical ileus (01/31/20) ?K56.609 - Unspecified intestinal obstruction, unspecified as to partial versus complete obstruction (ICD-10) COVID-19 (~02/2020) ?U07.1 - COVID-19 (ICD-10) Kidney stones ?N20.0 - Calculus of kidney (ICD-10) Surgical History (Updated 06/14/23 @ 16:55 by Marsha Du) S/P percutaneous endoscopic gastrostomy (PEG) tube placement ?Z93.1 - Gastrostomy status (ICD-10) 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 - Celiac artery compression syndrome (ICD-10) H/O shoulder surgery (2022) ?Z98.890 - Other specified postprocedural states (ICD-10) History of hip surgery ?Z98.890 - Other specified postprocedural states (ICD-10) S/P right knee arthroscopy ?Z98.890 - Other specified postprocedural states (ICD-10) S/P left knee arthroscopy ?Z98.890 - Other specified postprocedural states (ICD-10) Hx of tonsillectomy ?Z90.89 - Acquired absence of other organs (ICD-10) History of thoracic surgery (~2021) ?Z98.890 - Other specified postprocedural states (ICD-10) History of esophagogastroduodenoscopy (EGD) (10/04/13) ?Z98.890 - Other specified postprocedural states (ICD-10) History of cholecystectomy (10/06/13) ?Z90.49 - Acquired absence of other specified parts of digestive tract (ICD- 10) Delivery by section (~2016) Delivery by section (01/17/18) H/O colonoscopy (~2018) ?Z98.890 - Other specified postprocedural states (ICD-10) S/P right knee arthroscopy (07/21/18) ?Z98.890 - Other specified postprocedural states (ICD-10) Delivery by section (06/19/19) History of appendectomy (09/25/19) ?Z90.49 - Acquired absence of other specified parts of digestive tract (ICD- 10) H/O laparoscopy (11/10/19) ?Z98.890 - Other specified postprocedural states (ICD-10) History of liver biopsy (~04/2020) ?Z98.890 - Other specified postprocedural states (ICD-10) H/O laparoscopy (07/18/20) ?Z98.890 - Other specified postprocedural states (ICD-10) H/O arthroscopy of right knee (08/07/20) ?Z98.890 - Other specified postprocedural states (ICD-10) S/P laparoscopic sleeve gastrectomy (09/03/20) ?Z98.84 - Bariatric surgery status (ICD-10) H/O: hysterectomy (11/12/20) ?Z90.710 - Acquired absence of both cervix and uterus (ICD-10) History of hernia repair (03/20/21) ?Z98.890 - Other specified postprocedural states (ICD-10) ?Z87.19 - Personal history of other diseases of the digestive system (ICD-10) Family History (Updated 06/14/23 @ 16:56 by Marsha Du) Other Family history of cancer Family history of diabetes mellitus Family history of hypertension Family history of myocardial infarction PONV (postoperative nausea and vomiting) Social History (Updated 06/14/23 @ 16:57 by Marsha Du) Within the past year, how often did you have a drink containing alcohol: never Score interpretation: A score less than 3 is consistent with normal alcohol consumption. Smoking status: Never smoker Non-prescribed substance use: denies use Highest level of school completed/degree received: Master's degree Are you now , , , , never or living with a partner: In a typical week, how many times do you talk on the telephone with family, friends, or neighbors: 3 or more times per week How often do you get together with friends or relatives: twice per week How often do you attend christianity or spiritism services: 4 or more times per year Do you belong to any clubs or organizations such as christianity groups unions, [employer] or athletic groups, or school groups: no Total score: 3 Score interpretation: A score of greater than or equal to 2 indicates the lowest level of social isolation. Little interest or pleasure in doing things: not at all Feeling down, depressed, or hopeless: several days Feel stressed/tense/nervous/anxious/difficulty sleeping: to some extent Do you think of yourself as: straight/heterosexual Gender Identity: female Exam Narrative Exam Narrative: Nurses note and vital signs reviewed and patient is not hypoxic. General: The patient appears mildly uncomfortable and is sitting upright Skin: Warm, dry, no pallor noted. There is no rash noted. Head: Normocephalic, atraumatic Eye: Normal conjunctiva, no drainage Ears, Nose, Mouth, and Throat: oral mucosa is moist. Nares patent. Cardiovascular: Regular Rate and Rhythm Respiratory: Patient is in no distress, no accessory muscle use, lungs are clear to auscultation, no wheezing, rales or rhonchi Back: No bruise or rash or CVA tenderness GI: Soft and nontender, feeding tube in place Musculoskeletal: The patient has no evidence of calf tenderness, no pitting edema, symmetrical pulses noted bilaterally Neurological: A&O, normal speech Psychiatric: Cooperative Constitutional Vital Signs, click to edit/add: Last Vital Signs Temp 98.1 F 07/08/23 14:32 Pulse 91 H 07/08/23 14:32 Resp 20 07/08/23 14:32 BP 134/86 07/08/23 14:32 Pulse Ox 100 07/08/23 14:32 O2 Del Method Room Air 07/08/23 14:32 Course Vital Signs Vital signs: Vital Signs Temperature 98.1 F 07/08/23 14:32 Pulse Rate 91 H 07/08/23 14:32 Respiratory Rate 20 07/08/23 14:32 Blood Pressure 134/86 07/08/23 14:32 Pulse Oximetry 100 07/08/23 14:32 Oxygen Delivery Method Room Air 07/08/23 14:32 Temperature 98.1 F 07/08/23 14:32 Pulse Rate 91 H 07/08/23 14:32 Respiratory Rate 20 07/08/23 14:32 Blood Pressure 134/86 07/08/23 14:32 Pulse Oximetry 100 07/08/23 14:32 Oxygen Delivery Method Room Air 07/08/23 14:32 Medical Decision Making MDM Narrative Medical decision making narrative: Blood work and urinalysis are negative. CT scan shows no acute findings, no kidney stone or hydronephrosis. She is being discharged home and will follow-up with her doctor as needed. Treatment diagnosis and follow-up were discussed with the patient. Differential Diagnosis Differential Diagnosis: Pyelonephritis, kidney stone, UTI, muscle strain Medical Records Medical records reviewed: Yes I reviewed the patient's medical records Lab Data Lab results reviewed: Yes I reviewed the patient's lab results Labs: Lab Results 07/08/23 07/08/23 Range/Units 14:43 14:46 WBC 5.3 (4.0-11.0) 10^3/uL RBC 3.60 L (4.20-5.40) 10^6/uL Hgb 11.0 L (12.0-16.0) g/dL Hct 33.4 L (36.0-48.0) % MCV 92.8 (81.0-99.0) fL MCH 30.6 (26.7-34.0) pg MCHC 32.9 (29.9-35.2) g/dL RDW 13.7 (11.0-15.0) % Plt Count 255 (150-450) 10^3/uL MPV 11.1 (9.5-13.5) fL Neut % (Auto) 68.0 (43.0-75.0) % Lymph % (Auto) 24.6 (20.5-60.0) % [place] % (Auto) 6.4 (1.7-12.0) % Eos % (Auto) 0.4 L (0.9-7.0) % Baso % (Auto) 0.4 (0.2-2.0) % Neut # (Auto) 3.6 (1.4-6.5) 10^3/uL Lymph # (Auto) 1.3 (1.2-3.8) 10^3/uL [place] # (Auto) 0.3 (0.3-0.8) 10^3/uL Eos # (Auto) 0.0 (0.0-0.7) 10^3/uL Baso # (Auto) 0.0 (0.0-0.1) 10^3/uL Abs Immat Gran (auto) 0.01 (0.00-0.03) 10^3/uL Imm/Tot Granulo (auto) 0.2 (0.0-0.5) % Sodium 142 (136-145) mmol/L Potassium 3.6 (3.5-5.1) mmol/L Chloride 105 (98-107) mmol/L Carbon Dioxide 25.3 (21.0-32.0) mmol/L Anion Gap 15.3 BUN 17.0 (7.0-18.0) mg/dL Creatinine 0.70 (0.55-1.02) mg/dL Est GFR ( Amer) >60 (>=60) Est GFR (Non-Af Amer) >60 (>=60) BUN/Creatinine Ratio 24.3 Glucose 87 (74-106) mg/dL Calcium 8.9 (8.5-10.1) mg/dL Urine Color Lt. yellow (YELLOW) Urine Clarity Clear (CLEAR) Urine pH 7.5 (5.0-9.0) Ur Specific [place] 1.015 (1.005-1.025) Urine Protein Negative (NEG/TRACE) mg/dL Urine Glucose (UA) Negative (NEGATIVE) mg/dL Urine Ketones Negative (NEGATIVE) mg/dL Urine Occult Blood Negative (NEGATIVE) Urine Nitrite Negative (NEGATIVE) Urine Bilirubin Negative (NEGATIVE) Urine Urobilinogen 0.2 (0.2-1.0) EU/dL Ur Leukocyte Esterase Negative (NEGATIVE) Urine RBC None seen (0-2) #/HPF Urine WBC None seen (NONE SEEN) #/HPF Ur Squamous Epith Cells Few A (NONE/RARE) #/LPF Urine Crystals None seen (None Seen) #/HPF Urine Bacteria Trace A (NONE SEEN) #/HPF Urine Casts None seen (NONE SEEN) #/LPF Urine Mucus None seen (NONE SEEN) Imaging Data CT scan - abdomen: Radiologist's impression: ITS Impressions Abdomen/Pelvis CT 07/08/23 14:41 IMPRESSION: No obstructive uropathy Electronically authenticated by: BALDOMERO MARCELO Date: 07/08/2023 15:49 Discharge Plan Discharge Stand Alone Forms: Portal Instructions Chief Complaint: Abdominal Pain Clinical Impression: Flank pain Patient Disposition: Home, Self-Care Time of Disposition Decision: 15:55 Condition: Good Mode of Transportation: Private Vehicle Prescriptions / Home Meds: New ondansetron 4 mg tablet,disintegrating 4 mg PO Q6H PRN (Reason: nausea and vomiting) Qty: 20 0RF No Action hydroxyzine HCl 25 mg tablet 25 mg PO BID PRN (Reason: anxiety) liothyronine 5 mcg tablet 5 mcg PO QDAY topiramate 100 mg tablet 100 mg PO BID buspirone 10 mg tablet 10 mg PO TID methocarbamol 750 mg tablet 750 mg PO TID metoclopramide HCl 10 mg tablet 10 mg PO AC Linzess 290 mcg capsule 290 mcg PO DAILY albuterol sulfate 90 mcg/actuation HFA aerosol inhaler 2 puff INHALATION Q6H PRN (Reason: shortness of breath or wheezing) levothyroxine 75 mcg tablet 75 mcg PO .ACB escitalopram oxalate 20 mg tablet 20 mg PO DAILY mirtazapine 30 mg tablet 30 mg PO .HS pantoprazole 40 mg tablet,delayed release (DR/EC) 40 mg PO DAILY pjfhxduqcm-lbgpfczykalmp-zyme 50-325-40 mg Tablet 1 tab PO Q4H PRN (Reason: Headache) Qty: 20 0RF Nutrin 45 ml feeding tube Q1H Qty: 3000 11RF prochlorperazine maleate [Compazine] 10 mg tablet 10 mg PO Q6H PRN (Reason: nausea and vomiting) Qty: 60 3RF tramadol 50 mg tablet 50 mg PO Q6H PRN (Reason: pain) Qty: 28 0RF acetaminophen [Pain Relief (acetaminophen)] 325 mg tablet 650 mg PO Q4H PRN (Reason: pain) dexamethasone 2 mg tablet 2 mg PO DAILY Qty: 30 11RF cefdinir 300 mg capsule 600 mg PO DAILY Qty: 14 0RF doxycycline monohydrate 100 mg tablet 100 mg PO Q12H Print Language: Setswana Instructions: Flank Pain (ED) Referrals: Thomas Alas MD [Primary Care Provider] - 1 week
[2023-07-08] MEDS: MORPHINE SULFATE 4 MG/ML VIAL IV (14:52)
[2023-07-08] MEDS: ONDANSETRON PF 4 MG/2 ML VIAL IV (14:53)
[2023-07-08 14:56] LABS: Basophils Percent Auto 0.4 % (0.2-2.0); Eosinophils Percent Auto 0.4 % (0.9-7.0); Hematocrit 33.4 % (36.0-48.0); Immature Granulocytes Abs Auto 0.01 10^3/uL (0.00-0.03); Immature Granulocytes Pct Auto 0.2 % (0.0-0.5); Lymphocytes Absolute Auto 1.3 10^3/uL (1.2-3.8); Lymphocytes Percent Auto 24.6 % (20.5-60.0); Mean Corpuscular HGB Conc 32.9 g/dL (29.9-35.2); Mean Corpuscular Hemoglobin 30.6 pg (26.7-34.0); Mean Corpuscular Volume 92.8 fL (81.0-99.0); Mean Platelet Volume 11.1 fL (9.5-13.5); Monocytes Absolute Auto 0.3 10^3/uL (0.3-0.8); Monocytes Percent Auto 6.4 % (1.7-12.0); Neutrophils Absolute Auto 3.6 10^3/uL (1.4-6.5); Platelet Count 255 10^3/uL (150-450); Red Cell Distribution Width 13.7 % (11.0-15.0); White Blood Count 5.3 10^3/uL (4.0-11.0)
[2023-07-08 14:57] LABS: Bilirubin Urine NEGATIVE (NEGATIVE); Blood Urine NEGATIVE (NEGATIVE); Clarity Urine CLEAR (CLEAR); Color Urine LT. YELLOW (YELLOW); Glucose Urine UA NEGATIVE (NEGATIVE); Ketones Urine NEGATIVE (NEGATIVE); Leukocyte Esterase Urine NEGATIVE (NEGATIVE); Nitrite Urine NEGATIVE (NEGATIVE); Protein Urine NEGATIVE (NEG/TRACE); Specific Gravity Urine 1.015 (1.005-1.025); Urobilinogen Urine 0.2 EU/dL (0.2-1.0); pH Urine 7.5 (5.0-9.0)
[2023-07-08 15:08] LABS: Anion Gap 15.3; BUN Creatinine Ratio 24.3; Calcium 8.9 mg/dL (8.5-10.1); Carbon Dioxide 25.3 mmol/L (21.0-32.0); Chloride 105 mmol/L (98-107); Estimated GFR (African America >60 (>=60); Estimated GFR (Non-African Ame >60 (>=60); Glucose 87 mg/dL (74-106); Potassium 3.6 mmol/L (3.5-5.1); Sodium 142 mmol/L (136-145)
[2023-07-08 15:21] LABS: Bacteria Urine TRACE #/HPF (NONE SEEN); Cast Seen? NONE SEEN #/LPF (NONE SEEN); Crystals Seen? None Seen #/HPF (None Seen); Mucus Urine NONE SEEN (NONE SEEN); RBC Urine NONE SEEN #/HPF (0-2); Squamous Epithelial Cell Urine FEW #/LPF (NONE/RARE); WBC Urine NONE SEEN #/HPF (NONE SEEN)
[2023-07-08 16:05] VITALS: BP 114/72; PULSE 84; O2SAT 98
== END 2023-07-08 16:07 | disposition home or self-care (01) ==
PROVIDERS: Emergency Provider Emergency Medicine; PCP Family Medicine
DX: R10.9 Unspecified abdominal pain (principal); Z87.442 Personal history of urinary calculi
CPT/HCPCS: 36415; 74176; 80048; 81001; 85025; 96374; 96375; 99285

== ENCOUNTER 2023-07-15 10:34 | Outpatient (REF) | payer OTHER, SELFPAY ==
[2023-07-15 11:35] LABS: Alanine Aminotransferase 48 U/L (14-59); Albumin Globulin Ratio 1.1; Albumin Level 3.7 g/dL (3.4-5.0); Alkaline Phosphatase 65 U/L (46-116); Anion Gap 11.7; Aspartate Amino Transferase 33 U/L (15-37); BUN Creatinine Ratio 25.4; Bilirubin Total 0.4 mg/dL (0.2-1.0); Calcium 8.5 mg/dL (8.5-10.1); Carbon Dioxide 28.4 mmol/L (21.0-32.0); Chloride 104 mmol/L (98-107); Estimated GFR (African America >60 (>=60); Estimated GFR (Non-African Ame >60 (>=60); Globulin 3.3 g/dL; Glucose 86 mg/dL (74-106); Phosphorus 3.5 mg/dL (2.6-4.7); Potassium 4.1 mmol/L (3.5-5.1); Sodium 140 mmol/L (136-145); Triglycerides 54 mg/dL (<=150)
[2023-07-15 12:00] LABS: Basophils Percent Auto 0.5 % (0.2-2.0); Eosinophils Absolute Auto 0.1 10^3/uL (0.0-0.7); Eosinophils Percent Auto 0.6 % (0.9-7.0); Hematocrit 32.4 % (36.0-48.0); Hemoglobin 10.7 g/dL (12.0-16.0); Immature Granulocytes Abs Auto 0.01 10^3/uL (0.00-0.03); Immature Granulocytes Pct Auto 0.1 % (0.0-0.5); Lymphocytes Absolute Auto 1.3 10^3/uL (1.2-3.8); Lymphocytes Percent Auto 16.3 % (20.5-60.0); Mean Corpuscular Hemoglobin 30.3 pg (26.7-34.0); Mean Corpuscular Volume 91.8 fL (81.0-99.0); Mean Platelet Volume 11.7 fL (9.5-13.5); Monocytes Absolute Auto 0.3 10^3/uL (0.3-0.8); Monocytes Percent Auto 3.3 % (1.7-12.0); Neutrophils Absolute Auto 6.2 10^3/uL (1.4-6.5); Neutrophils Percent Auto 79.2 % (43.0-75.0); Platelet Count 285 10^3/uL (150-450); Red Blood Count 3.53 10^6/uL (4.20-5.40); White Blood Count 7.9 10^3/uL (4.0-11.0)
== END 2023-07-15 10:35 | disposition home or self-care (01) ==
LOC: LAB 10:34
PROVIDERS: PCP Family Medicine; Visit Provider Family Medicine
DX: E44.0 Moderate protein-calorie malnutrition (principal); R11.2 Nausea with vomiting, unspecified
CPT/HCPCS: 36415; 80053; 83735; 84100; 84478; 85025

== ENCOUNTER 2023-07-22 16:06 | Outpatient (REF) | payer OTHER, SELFPAY ==
--- OUTSIDE RECORDS SUMMARY | 2023-07-22 16:21 | XMS_ITS | CCD ---
Author Organization [facility] Care Team Providers Care Ditch Rider Name Role Phone Unavailable Primary Care Provider Unavailabl e Generic Provider MD, No Assigned Pcp Primary Car e Provider Unavailable Allergies Allergy Classification Reported Allergen(s) Allergy Type Date of Onset Reaction(s) Facility (5 sources) Codeine Drug Allergy 3 Nausea/vomiting [facility] (5 sources) Non-steroidal anti-inflammato ry agent Propensity to adverse reactions 3 Nausea/vomiting [facility] Work Phone: Medications Current Medications Medication Drug Class(es) Dates Sig (Normalized) Sig (Original) acetaminophen 500 mg oral tablet (5 sources) Start: 06-23-2022 take 2 tablets by mouth every six hours as needed acetaminophen (Tylenol) 500 mg tablet Take 2 tablets (1,000 mg) by mouth every 6 hours if needed. 0 06/23/2022 Active [id number] 200 actuat albuterol 0.09 mg/actuat metered dose [...] meals. 0 12/01/2022 Active polyethylene glycol 3350 95229 mg powder for oral solution (5 sources) [...] te Episodic/Chronic Unclassified (3 sources) Onset: 01-14-2023 01-14-2023 Results Test Name Value Interpretation Reference Range Facil ity ECG 12-LEADon 06-29-2023 ECG 12-LEAD Ventricular Rate 59 Atrial Rate 59 P-R Interval 148 QRS Duration 86 Q-T Interval 458 QTC Calculation(Bazett) 453 P [place] 85 R [place] 79 T [place] 47 QRS Count 9 Q Onset 218 P Onset 144 P Offset 195 T Offset 447 QTC Fredericia 455 Diagnosis Sinus bradycardia Otherwise normal ECG When compared with ECG of 13-JAN-2023 18:46, Nonspecific T wave abnormality no longer evident in Inferior leads Confirmed by Erlin Sherwood ([id number]) on 07/06/2023 2:07:17 PM Normal [facility] ECG 12 leadOrdered By: Leland Zabala on 01-15-2023 Atrial Rate 75 BPM [facility] Work Phone: P [place] 95 degrees [facility] Work Phone: P Offset 200 ms [facility] Work Phone: P Onset 149 [facility] Work Phone: [place] Interval 144 ms [facility] Work Phone: Q Onset 221 ms [facility] Work Phone: QRS Count 12 beats [facility] Work Phone: QRS Duration 84 ms [facility] Work Phone: QT Interval 420 ms [facility] Work Phone: QTC Calculation(Bazett) 469 [facility] Work Phone: QTC Fredericia 452 [facility] Work Phone: R [place] 78 degrees [facility] Work Phone: T [place] 36 degrees [facility] Work Phone: T Offset 431 ms [facility] Work Phone: Ventricular Rate 75 BPM [facility] Work Phone: [facility] Work Phone: ECG 12 leadon 01-15-2023 Normal sinus rhythm Normal ECG No previous ECGs available Confirmed by Leland Zabala ([id number]) on 01/15/2023 2:28:35 PM Leland Bryant MD - 01/15/2023 Normal sinus rhythm Normal ECG No previous ECGs available Confirmed by Leland Zabala ([id number]) on 01/15/2023 2:28:35 PM [facility] Work Phone: CBC W Auto Differential pane l (Bld)on 01-13-2023 Basophils (Bld) [#/Vol] 0.04 10*3/uL [facility] Basophils/100 WBC (Bld) 0.7 % 0.0 - 2.0 % [facility] Eosinophils (Bld) [#/Vol] 0.13 10*3/uL [facility] Eosinophils/100 WBC (Bld) 2.2 % 0.0 - 6.0 % [facility] Erythrocyte distribution width (RBC) [Ratio] 12.4 % 11.5 - 14.5 % [facility] Hematocrit (Bld) [Volume fraction] 36.6 % 36.0 - 46.0 % [facility] Hemoglobin (Bld) [Mass/Vol] 12.6 g/dL 12.0 - 16.0 g/dL [facility] Immature granulocytes (Bld) [#/Vol] 0.01 10*3/uL [facility] Immature granulocytes/100 WBC (Bld) 0.2 % 0.0 - 0.9 % [facility] Comment on above: Immature Granulocyte Count (IG) includes promyelocytes, myelocytes and metamyelocytes but does not include bands. Percent differential counts (%) should be interpreted in the context of the absolute cell counts (cells/UL). Lymphocytes (Bld) [#/Vol] 2.26 10*3/uL [facility] Lymphocytes/100 WBC (Bld) 39.0 % 13.0 - 44.0 % [facility] MCH (RBC) [Entitic mass] 30.7 pg 26.0 - 34.0 pg [facility] MCHC (RBC) [Mass/Vol] 34.4 g/dL 32.0 - 36.0 g/dL [facility] MCV (RBC) [Entitic vol] 89 fL 80 - 100 fL [facility] Monocytes (Bld) [#/Vol] 0.41 10*3/uL [facility] Monocytes/100 WBC (Bld) 7.1 % 2.0 - 10.0 % [facility] Neutrophils (Bld) [#/Vol] 2.95 10*3/uL [facility] Comment on above: Percent differential counts (%) should be interpreted in the context of the absolute cell counts (cells/uL). Neutrophils/100 WBC (Bld) 50.8 % 40.0 - 80.0 % [facility] Nucleated RBC/100 WBC (Bld) [Ratio] 0.0 % [facility] Platelets (Bld) [#/Vol] 222 10*3/uL [facility] RBC (Bld) [#/Vol] 4.11 10*6/uL [facility] WBC (Bld) [#/Vol] 5.8 10*3/uL [facility] Comprehensive metabolic 2000 panelon 01-13-2023 Albumin [Mass/Vol] 4.2 g/dL 3.5 - 5.0 g/dL Un [facility] ALP (Bld) [Catalytic activity/Vol] 74 U/L 35 - 125 U/L [facility] ALT [Catalytic activity/Vol] 15 U/L 5 - 40 U/L [facility] Anion gap [Moles/Vol] 10 mmol/L NINF - 19 mmol/L [facility] AST [Catalytic activity/Vol] 26 U/L 5 - 40 U/L [facility] Bilirubin [Mass/Vol] 0.5 mg/dL 0.1 - 1.2 mg/dL [facility] Calcium [Mass/Vol] 9.1 mg/dL 8.5 - 10. 4 mg/dL [facility] Chloride [Moles/Vol] 103 mmol/L 97 - 107 mmol/L [facility] CO2 [Moles/Vol] 23 mmol/L Low 24 - 31 mmol/L [facility] Creatinine [Mass/Vol] 0.70 mg/dL 0.40 - 1.60 mg/dL [facility] GFR/1.73 sq M.predicted MDRD (S/P/Bld) [Vol rate/Area] - PINF [facility] Comment on above: Calculations of jessica mated GFR are performed using the 2020 CKD-EPI Study Refit equation without the race variable for the IDMS-Traceable creatinine methods. https://jasn.asnjournals.org/content/early/ASN.8364261 988 Glucose [Mass/Vol] 89 mg/dL 65 - 99 mg/dL [facility] Interpretation and review of laboratory results Abnormal [facility] Potassium [Moles/Vol] 3.5 mmol/L 3.4 - 5.1 mmol/L [facility] Protein [Mass/Vol] 6.9 g/dL 5.9 - 7.9 g/dL [facility] Sodium [Moles/Vol] 136 mmol/L 133 - 145 mmol/L [facility] Urea nitrogen [Mass/Vol] 13 mg/dL 8 - 25 mg/dL [facility] ECG 12-LEADon 01-13-2023 ECG 12-LEAD Ventricular Rate 75 Atrial Rate 75 P-R Interval 144 QRS Duration 84 Q-T Interval 420 QTC Calculation(Bazett) 469 P [place] 95 R [place] 78 T [place] 36 QRS Count 12 Q Onset 221 P Onset 149 P Offset 200 T Offset 431 QTC Fredericia 452 Diagnosis Normal sinus rhythm Normal ECG No previous ECGs available Confirmed by Leland Zabala ([id number]) on 01/15/2023 2:28:35 PM Normal [facility] HCG ( test) Steve d Ql (U)Ordered By: Gayle Gagnon on 01-13-2023 HCG ( test) Ql (U) Negative NEGATIVE [facility] Interpretation and review of laboratory results Normal [facility] Urinalysis complete panel (U )on 01-13-2023 Appearance (U) Clear Clear [facility] Bilirubin (U) [Mass/Vol] Negative NEGATIVE [facility] Color (U) Light-Yellow Light-Yellow, Yellow, Dark-Yellow [facility] Glucose Auto test strip (U) [Mass/Vol] Normal Normal mg/dL [facility] Interpretation and review of laboratory results Normal [facility] Ketones (U) [Mass/Vol] Negative NEGATIVE mg/dL [facility] Leukocyte esterase Auto test strip Ql (U) Negative NEGATIVE [facility] Nitrite Auto test strip Ql (U) Negative NEGATIVE [facility] pH (U) 7.0 [pH] 5.0, 5.5, 6.0, 6.5, 7.0, 7.5, 8.0 [facility] Protein (U) [Mass/Vol] Negative NEGATIVE, 10 (TRACE), 20 (TRACE) mg/dL [facility] RBC (U) [#/Vol] Negative NEGATIVE [facility] Specific gravity (U) [Rel density] 1.010 1.005 - 1.035 [facility] Urobilinogen (U) [Mass/Vol] Normal Normal mg/dL [facility] Vital Signs Date Time Vital Sign Value Performing Clinician Facility 01-14-2023 10:39-0500 Diastolic blood pressure 58 mm[Hg] Sherry Holley MD Work Phone: [facility] 01-14-2023 10:39-0500 Systolic blood pressure 119 mm[Hg] Sheryr Holley MD Work Phone: [facility] 01-13-2023 21:55-0500 Diastolic blood pressure 82 mm[Hg] Xiomara Fenoff DO Work Phone: [facility] 01-13-2023 21:55-0500 Systolic blood pressure 122 mm[Hg] Xiomara Fenoff DO Work Phone: [facility] 01-13-2023 20:46-0500 Heart rate 64 /min Xiomara Fenoff DO Work Phone: [facility] 01-13-2023 20:46-0500 Respiratory rate 16 /min Xiomara Fenoff DO Work Phone: [facility] 01-13-2023 20:46-0500 SaO2% (BldA) [Mass fraction] 98 % Xiomara Fenoff DO Work Phone: [facility] 01-13-2023 18:41-0500 Body height 167.6 cm Xiomara Fenoff DO Work Phone: [facility] 01-13-2023 18:41-0500 Body mass index (BMI) [Ratio] 29.05 kg/m2 Xiomara Fenoff DO Work Phone: [facility] 01-13-2023 18:41-0500 Body temperature 97.3 [degF] Xiomara Fenoff DO Work Phone: [facility] 01-13-2023 18:41-0500 Body weight 81.65 kg Xiomara Fenoff DO Work Phone: [facility] Encounters Encounter Date Encounter Type Care Provider Facility Start: 01-14-2023 End: 01-14-2023 Subsequent hospital visit by physician Ludwin Garciav1 [facility] Comment on above: Arrived Start: 01-14-2023 End: 01-14-2023 Office outpatient new 60 minutes Sherry Holley MD Work Phone: [facility] Comment on above: Median arcuate ligam ent syndrome (CMS/HCC) (Primary Dx) Start: 01-13-2023 End: 01-13-2023 Emergency department patient visit Xiomara N Fenoff DO Work Phone: [facility] Comment on above: Generalized abdomina l pain (Primary Dx); Median arcuate ligament syndrome (CMS/HCC) Start: 12-21-2022 End: 12-21-2022 Office outpatient new 60 minutes Sherry Holley MD Work Phone: [facility] Comment on above: Median arcuate ligam ent syndrome (CMS/HCC) (Primary Dx) Procedures Date Procedure Procedure Detail Performing Clinician Start: 01-14-2023 Ecg routine ecg w/le ast 12 lds trcg only w/o i&r Xiomara N Leroyoff DO Work Phone: Start: 01-13-2023 Urnls dip stick/tabl et rgnt auto w/o microscopy Xiomara N Fenoff DO Work Phone: Start: 01-13-2023 Comprehensive metabo lic panel Xiomara N Leroyoff DO Work Phone: Start: 10-26-2022 Thyrotropin [Units/v olume] in Serum or Plasma Xiomara Fenoff DO Work Phone: Plan of Treatment Date Care Activity Detail Author Start: 2039 Zoster Vaccines (1 o f 2) Zoster Vaccines (1 of 2) [facility] Start: 09-21-2026 DTaP/Tdap/Td Vaccine s (2 - Td or Tdap) DTaP/Tdap/Td Vaccines (2 - Td or Tdap) [facility] Start: 10-27-2023 Thyroid stimulating hormone measurement TSH Level [facility] Start: 01-14-2023 End: 01-14-2023 Clinical Support [facility] Start: 12-21-2022 End: 12-21-2024 Vascular US mesenteric artery duplex complete Vascular US mesenteric artery duplex complete Vascular Ultrasound Routine Median arcuate ligament syndrome (CMS/HCC) Expected: 12/21/2022 (Approximate), Expires: 12/21/2024 [facility] Service Area Work Phone: Comment on above: Expected: 12/21/2022 (Approximate), Expires: 12/21/2024 Start: 04-15-2021 COVID-19 Vaccine (3 - Booster for Woo series) COVID-19 Vaccine (3 - Booster for Woo series) [facility] Start: 2010 Screening for malign ant neoplasm of cervix [facility] Start: 2007 Hepatitis C screening Hepatitis C Sc reening [facility] Start: 1990 MMR Vaccines (1 of 1 - Standard series) MMR Vaccines (1 of 1 - Standard series) [facility] Start: 1990 Varicella vaccination Varicell a Vaccines (1 of 2 - 2-dose childhood series) [facility] Start: 1989 Hepatitis B Vaccines (1 of 3 - 3-dose series) Hepatitis B Vaccines (1 of 3 - 3-dose series) [facility] Start: 1989 HIV screening HIV Screening [facility] Start: 1989 Lipid panel Lipid Panel [facility] Start: 1989 Yearly Adult Physical Yearly Adult P hysical [facility] End: 01-13-2023 ECG 12 lead [facility] Service Area Work Phone: Comment on above: Once for 1 Occurrenc es starting 01/13/2023 until 01/13/2023 Payers Date Payer Category Payer Unknown [employer] [facility] [employer] [facility] [id number] 2022-Present [address] [place] [address] [id number] Social History Date Type Detail Facility Start: 12-21-2022 Tobacco smoking status NHIS Never smoked tobacco [facility] Work Phone: Start: 12-21-2022 Tobacco use and exposure Smokeless tobacco non-user [facility] Work Phone: Start: 12-21-2022 End: 01-14-2023 Alcohol intake Lifetime non-drinker (finding) [facility] Work Phone: Start: 12-21-2022 End: 01-14-2023 History of Social function [facility] Work Phone: Start: 12-21-2022 End: 01-14-2023 Alcohol Use Disorder Identification Test - Consumption [AUDIT-C] [facility] Work Phone: How often to you hav e a drink containing alcohol? Never [facility] Work Phone: How many standard dr inks containing alcohol do you have on a typical day? 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 She was seen at [facility] by Dr. Valladares and underwent an [...] She had a CT angiogram recently at [facility] but this is not available for my [...] This is with Dr. Ramos over the [facility]. Currently any oral intake will result in [...] to review the CT angiogram done at [facility]. She is going to undergo a celiac [...] Dr. Deacon Valladares. documented in this encounter [facility] Work Phone: Emergency department Note 01-13-2023 Xiomara Luna DO [...] file PHYSICAL EXAM ED Triage Vitals [01/13/23 1841] Temp Heart Rate Resp BP 36.3 C [...] this dictation. EKG: Personally interpreted by Xiomara Luna, 1846: Normal sinus rhythm with ventricular rate 75 [...] DISCHARGE PATIENT [place]ED [place]: [place] [id number] [facility] [address] In 1 day for previously [...] Luna DO 01/13/232116 documented in this encounter [facility] Work Phone: Physician Emergency department Note 01-13-2023 [...] file PHYSICAL EXAM ED Triage Vitals [01/13/23 1841] Temp Heart Rate Resp BP 36.3 C [...] this dictation. 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 She underwent gastric bypass surgery by Dr. [...] coordinate her care. documented in this encounter [facility] Work Phone: Evaluation note Note Date & Type Note Facility Evaluation note Diagnosis Median arcuate ligament syndrome (CMS/HCC)- Primary Celiac artery compression syndrome documented in this encounter [facility] Work Phone: Evaluation note Note Date & Type Note Facility Evaluation note Diagnosis Generalized abdominal pain- Primary Abdominal pain, generalized Median arcuate ligament syndrome (CMS/HCC) Celiac artery compression syndrome documented in this encounter [facility] Work Phone: Evaluation note Note Date & Type Note Facility Evaluation note Diagnosis Median arcuate ligament syndrome (CMS/HCC)- Primary Celiac artery compression syndrome documented in this encounter [facility] Work Phone: Reason for Referral Specialty Diagnoses / Procedures Referred By Contac t Referred To Contact Cardiology Diagnoses Median arcuate ligament syndrome (CMS/HCC) Procedures Vascular US mesenteric [place] [id number] [place] [address] Referral ID Status Reason Start Date Expiration Date Visits Requested Visits Authorized [id number] Pending Review Perform Procedure 12/21/2022 12/21/2023 1 [...] dose 2034 (Given - Provid er: Oksana Hansen, DEE) ondansetron (Zofran) injection 4 mg (COMPLETED) 4 mg, intravenous, Once, On Wed01/13/23 at 2019, For 1 dose, When administering via IV Push, administer over 3-5 minutes. 2034 (Given - Provid er: Oksana Hansen, RN) sodium chloride 0.9 % bolus 1,000 mL (COMPLETED) 1,000 mL, intravenous, at 1,000 mL/hr, Administer over 1 Hours, Once, On Wed01/13/23 at 2020, For 1 dose 2034 (New Bag - Prov ider: Oksana Hansen RN)2134 (Stopped - Provider: Carla Alejo LPN) Care Teams (unrecognized sec tion and content) Ditch Rider Relationship Specialty Start Date End Date Generic Provider, No Assigned [facility] [address] [place] [address] PCP - General Family Medicine 01/02/23 Ditch Rider Relationship Specialty Start Date End Date Generic Provider, No Assigned [facility] [address] [place] [address] PCP - General Family Medicine 01/02/23 Ditch Rider Relationship Specialty Start Date End Date Generic Provider, No Assigned [facility] [address] [place] [address] PCP - General Family Medicine 01/02/23 Ditch Rider Relationship Specialty Start Date End Date Generic Provider, No Assigned [facility] [address] [place] [address] PCP - General Family Medicine 01/02/23 INFORMATION SOURCE (unrecogn ized section and content) DATE CREATED AUTHOR 07/07/2023 [facility] FOR RECORDS PERTAINING TO PATIENTS WHO ARE [...] BE BASED ON THE PRIMARY CLINICAL RECORDS. [employer] provides no warranty or guarantee of the accuracy or completeness of information in this document.
[2023-07-22 16:23] LABS: Basophils Percent Auto 0.3 % (0.2-2.0); Eosinophils Percent Auto 0.3 % (0.9-7.0); Hematocrit 29.5 % (36.0-48.0); Hemoglobin 9.8 g/dL (12.0-16.0); Immature Granulocytes Abs Auto 0.03 10^3/uL (0.00-0.03); Immature Granulocytes Pct Auto 0.3 % (0.0-0.5); Lymphocytes Absolute Auto 1.4 10^3/uL (1.2-3.8); Lymphocytes Percent Auto 15.7 % (20.5-60.0); Mean Corpuscular HGB Conc 33.2 g/dL (29.9-35.2); Mean Corpuscular Hemoglobin 30.4 pg (26.7-34.0); Mean Corpuscular Volume 91.6 fL (81.0-99.0); Mean Platelet Volume 11.5 fL (9.5-13.5); Monocytes Absolute Auto 0.7 10^3/uL (0.3-0.8); Neutrophils Absolute Auto 6.9 10^3/uL (1.4-6.5); Neutrophils Percent Auto 75.4 % (43.0-75.0); Platelet Count 212 10^3/uL (150-450); Red Blood Count 3.22 10^6/uL (4.20-5.40); Red Cell Distribution Width 13.2 % (11.0-15.0); White Blood Count 9.2 10^3/uL (4.0-11.0)
[2023-07-22 18:56] LABS: Alanine Aminotransferase 28 U/L (14-59); Albumin Globulin Ratio 0.9; Albumin Level 3.3 g/dL (3.4-5.0); Alkaline Phosphatase 66 U/L (46-116); Anion Gap 14.5; Aspartate Amino Transferase 23 U/L (15-37); BUN Creatinine Ratio 15.7; Bilirubin Total 0.3 mg/dL (0.2-1.0); Carbon Dioxide 23.2 mmol/L (21.0-32.0); Chloride 105 mmol/L (98-107); Estimated GFR (African America >60 (>=60); Estimated GFR (Non-African Ame >60 (>=60); Globulin 3.5 g/dL; Glucose 75 mg/dL (74-106); Phosphorus 2.5 mg/dL (2.6-4.7); Potassium 3.7 mmol/L (3.5-5.1); Sodium 139 mmol/L (136-145); Total Protein 6.8 g/dL (6.4-8.2); Triglycerides 92 mg/dL (<=150)
== END 2023-07-22 16:07 | disposition home or self-care (01) ==
LOC: LAB 16:06
PROVIDERS: PCP Family Medicine; Visit Provider Family Medicine
DX: E44.0 Moderate protein-calorie malnutrition (principal); R11.2 Nausea with vomiting, unspecified
CPT/HCPCS: 36415; 80053; 83735; 84100; 84478; 85025

== ENCOUNTER 2023-07-29 13:39 | Outpatient (REF) | payer OTHER, SELFPAY ==
[2023-07-29 14:03] LABS: Basophils Percent Auto 0.2 % (0.2-2.0); Hematocrit 32.4 % (36.0-48.0); Hemoglobin 10.6 g/dL (12.0-16.0); Immature Granulocytes Abs Auto 0.03 10^3/uL (0.00-0.03); Immature Granulocytes Pct Auto 0.2 % (0.0-0.5); Lymphocytes Absolute Auto 1.4 10^3/uL (1.2-3.8); Lymphocytes Percent Auto 11.7 % (20.5-60.0); Mean Corpuscular HGB Conc 32.7 g/dL (29.9-35.2); Mean Corpuscular Hemoglobin 29.8 pg (26.7-34.0); Mean Platelet Volume 11.1 fL (9.5-13.5); Monocytes Absolute Auto 0.4 10^3/uL (0.3-0.8); Neutrophils Absolute Auto 10.4 10^3/uL (1.4-6.5); Neutrophils Percent Auto 84.9 % (43.0-75.0); Platelet Count 305 10^3/uL (150-450); Red Blood Count 3.56 10^6/uL (4.20-5.40); Red Cell Distribution Width 12.9 % (11.0-15.0); White Blood Count 12.2 10^3/uL (4.0-11.0)
[2023-07-29 14:24] LABS: Alanine Aminotransferase 39 U/L (14-59); Albumin Globulin Ratio 1.1; Albumin Level 3.6 g/dL (3.4-5.0); Alkaline Phosphatase 63 U/L (46-116); Anion Gap 13.8; Aspartate Amino Transferase 32 U/L (15-37); BUN Creatinine Ratio 11.1; Bilirubin Total 0.3 mg/dL (0.2-1.0); Calcium 8.7 mg/dL (8.5-10.1); Carbon Dioxide 25.6 mmol/L (21.0-32.0); Chloride 105 mmol/L (98-107); Estimated GFR (African America >60 (>=60); Estimated GFR (Non-African Ame >60 (>=60); Globulin 3.3 g/dL; Glucose 152 mg/dL (74-106); Magnesium 2.1 mg/dL (1.8-2.4); Phosphorus 3.3 mg/dL (2.6-4.7); Potassium 3.4 mmol/L (3.5-5.1); Sodium 141 mmol/L (136-145); Total Protein 6.9 g/dL (6.4-8.2); Triglycerides 44 mg/dL (<=150)
== END 2023-07-29 13:40 | disposition home or self-care (01) ==
LOC: LAB 13:39
PROVIDERS: PCP Family Medicine; Visit Provider Family Medicine
DX: E44.0 Moderate protein-calorie malnutrition (principal); R11.2 Nausea with vomiting, unspecified
CPT/HCPCS: 36415; 80053; 83735; 84100; 84478; 85025

== ENCOUNTER 2023-08-10 12:39 | Outpatient (RCR) | payer OTHER, SELFPAY | END 2023-08-18 17:10 | disposition home or self-care (01) | LOC: PT 12:39 | PROVIDERS: PCP Family Medicine; Visit Provider Orthopaedic Surgery | DX: M25.561 Pain in right knee (principal); M23.91 Unspecified internal derangement of right knee | CPT/HCPCS: 20561; 97110; 97162 ==

== ENCOUNTER 2023-08-13 12:29 | Outpatient (REF) | payer OTHER, SELFPAY ==
[2023-08-13 12:52] LABS: Basophils Percent Auto 0.6 % (0.2-2.0); Eosinophils Percent Auto 0.4 % (0.9-7.0); Hematocrit 33.2 % (36.0-48.0); Hemoglobin 10.9 g/dL (12.0-16.0); Immature Granulocytes Abs Auto 0.01 10^3/uL (0.00-0.03); Immature Granulocytes Pct Auto 0.2 % (0.0-0.5); Lymphocytes Percent Auto 19.1 % (20.5-60.0); Mean Corpuscular HGB Conc 32.8 g/dL (29.9-35.2); Mean Corpuscular Hemoglobin 29.3 pg (26.7-34.0); Mean Corpuscular Volume 89.2 fL (81.0-99.0); Mean Platelet Volume 11.4 fL (9.5-13.5); Monocytes Absolute Auto 0.2 10^3/uL (0.3-0.8); Neutrophils Percent Auto 75.7 % (43.0-75.0); Platelet Count 305 10^3/uL (150-450); Red Blood Count 3.72 10^6/uL (4.20-5.40); Red Cell Distribution Width 12.8 % (11.0-15.0); White Blood Count 5.3 10^3/uL (4.0-11.0)
[2023-08-13 13:55] LABS: Alanine Aminotransferase 34 U/L (14-59); Albumin Level 3.5 g/dL (3.4-5.0); Alkaline Phosphatase 67 U/L (46-116); Anion Gap 12.1; Aspartate Amino Transferase 36 U/L (15-37); Bilirubin Total 0.3 mg/dL (0.2-1.0); Calcium 8.6 mg/dL (8.5-10.1); Chloride 107 mmol/L (98-107); Estimated GFR (African America >60 (>=60); Estimated GFR (Non-African Ame >60 (>=60); Globulin 3.4 g/dL; Glucose 84 mg/dL (74-106); Phosphorus 3.3 mg/dL (2.6-4.7); Potassium 4.1 mmol/L (3.5-5.1); Sodium 140 mmol/L (136-145); Total Protein 6.9 g/dL (6.4-8.2); Triglycerides 51 mg/dL (<=150)
== END 2023-08-13 12:30 | disposition home or self-care (01) ==
LOC: LAB 12:29
PROVIDERS: PCP Family Medicine; Visit Provider Family Medicine
DX: R11.2 Nausea with vomiting, unspecified (principal); E44.0 Moderate protein-calorie malnutrition
CPT/HCPCS: 36415; 80053; 83735; 84100; 84478; 85025

== ENCOUNTER 2023-08-15 13:00 | Observation (INO) | payer OTHER, SELFPAY ==
[2023-08-15 13:11] VITALS: BP 120/87; PULSE 96; TEMP 36.7; O2SAT 100; BMI 28.1
--- OUTSIDE RECORDS SUMMARY | 2023-08-15 13:17 | XMS_ITS | CCD ---
Author Organization [facility] Providers Care Counseling Program Leader Name Role Phone PHYSICIAN, DEFAULT Unavailable Unavailable PHYSICIAN, DEFAULT Unavailable Unavailable Shanna June Primary Care Provider Unavail able Slade PLASTICS ENGINEER, Shanna Primary Care Provider Mona vailable Slade ETHNOARCHAEOLOGY PROFESSOR - FIRE EXTINGUISHER INSTALLER, Shanna Primary Care Provid er LUCIE MORA Attending Unavailable SHANNA JUNE Primary Care Unavailable SHANNA JUNE Referring Unavailable LUCIE MORA Attending Unavailable SHANNA JUNE Primary Care Unavailable SELF, SELF Referring Unavailable Antelmo Davey Unavailable [phone] Deacon Kat MD Unavailable Slade CAMPOS, Shanna Unavailable [phone] Shanna June CNP Primary Care Provider Antelmo Davey MD Unavailable Wally Foley Primary Care Provider Shanna June Unavailable Wally Foley Primary Care Provider [phone] Antelmo Davey MD Unavailable Deacon Kat MD Unavailable [phone] Slade CAMPOS, Shanna Unavailable Slade CAMPOS Shanna Primary Care Provider Antelmo Davey MD Unavailable Deacon Kat MD Unavailable [phone] Slade CAMPOS, Shanna Unavailable Slade CAMPOS Shanna Primary Care Provider Slade STORE CUSTODIAN, Shanna Unavailable [phone] Slade STORE CUSTODIAN, Shanna Primary Care Provider Antelmo Davey MD Unavailable Deacon Kat MD Unavailable [phone] Slade STORE CUSTODIAN, Shanna Unavailable [phone] Slade STORE CUSTODIAN, Shanna Primary Care Provider Wally Foley MD Primary Care Provider Jaquan Morrow Primary Care Physician [phone] Agsutin Valentino Unavailable Jaquan Morrow Primary Care Provider FOLEY ., DR WALLY Graf Primary Care [...] Unavailable ZURDO ., DR BURCH Admitting Unavailable [place], DR BALDOMERO Campos Consulting Unavailable ZURDO ., [...] Unavailable Agustin Valentino Unavailable Agustin Bautista Unavailable [phone] Wally Foley Primary Care Provider WALLY FOLEY Primary Care Unavailable EMMY WATSON [id number] Attending Unavailable WALLY FOLEY Primary Care Unavailable JD RAINEY Attending Unavailable WALLY FOLEY Primary Care Unavailable Slade PLASTICS ENGINEER, Shanna Primary Care Provider Mona vakayeble DIMITRI WALKER Attending Unavailable SLADE, SHANNA Primary Care Unavailable Giedraitis , Michelle Henning Attending Unavailable CRISTHIAN, JAQUAN Primary Care Unavailable CRISTHIAN, JAQUAN Primary Care Unavailable RODRIGUEZ Attending Unavailable CAMDEN RODRIGUEZ Admitting Unavailable CRISTHIAN, JAQUAN Primary Care Unavailable BRUNO WHEAT Consulting Unavailable CORIE HENDRICKSON Attending Unavailable Cristhian ETHNOARCHAEOLOGY PROFESSOR.Jaquan CAMPOS Primary Care Provider [phone] JAQUAN MORROW L Primary Care Unavailable VIC RAMOS Attending Unavailable VIC RAMOS Admitting Unavailable Cristhian, FIRE EXTINGUISHER INSTALLER-C Jaquan Ortega Primary Care Provider DO Claus Obrien Emergency Provider [phone] GENERIC PROVIDER, NO ASSIGNED PCP Primary Care Unavailable Generic Provider MD, No Assigned Pcp Primary Car e Provider Unavailable Generic Provider MD, No Assigned Pcp Primary Car e Provider Unavailable Dericimlaurel, PLASTICS ENGINEER-BC Trace E Emergency Provider [phone] Generic Provider MD, No Assigned Pcp Primary Car e Provider Unavailable Cristhian, FIRE EXTINGUISHER INSTALLER-C Jaquan Ortega Primary Care Provider Beverley, [facility]- Trace E Emergency Provider SLIM Parker Emergency Provider [phone] Cristhian ETHNOARCHAEOLOGY PROFESSOR.Jaquan CAMPOS Primary Care Provider Generic Provider , No Assigned Pcp Primary Car e Provider Unavailable GENERIC PROVIDER, NO ASSIGNED PCP Primary Care Unavailable Deacon Kat MD Unavailable Generic Provider , No Assigned Pcp Primary Car e Provider Unavailable BERNARDINO, PABLO Jose Attending Unavailable CRISTHIAN, JAQUAN L Primary Care Unavailable BERNARDINO PABLO D Referring Unavailable BERNARDINO PABLO D Attending Unavailable CRISTHIAN, JAQUAN L Primary Care Unavailable BERNARDINO PABLO D Referring Unavailable BERNARDINO PABLO D Attending Unavailable CRISTHIAN, JAQUAN L Primary Care Unavailable BERNARDINO, PABLO D Attending Unavailable CRISTHIAN, JAQUAN L Primary Care Unavailable BERNARDINO, PABLO D Referring Unavailable BERNARDINO, PABLO D Attending Unavailable CRISTHIAN, JAQUAN L Primary Care Unavailable Cristhian, FIRE EXTINGUISHER INSTALLER-C Jaquan Ortega Primary Care Provider MD Thomas Calix Primary Care Provider [phone] GABRIELLA Sabillon Emergency Provider MD Tahir Whitt Admit Provider MD Tahir Whitt Attending Provider DO Camden Rodriguez Admit Provider DO Camden Rodriguez Attending Provider MD Keven Kimrbough Other Provider SHERRY MAGAÑA Attending Unavailable GENERIC PROVIDER, NO ASSIGNED PCP Primary Care Unavailable XIOMARA PETTY Attending Unavailable SHERRY MAGAÑA Referring Unavailable GENERIC PROVIDER, NO ASSIGNED PCP Primary Care Unavailable SHERRY MAGAÑA Attending Unavailable GENERIC PROVIDER, NO ASSIGNED PCP Primary Care Unavailable XIOMARA PETTY Referring Unavailable GENERIC PROVIDER, NO ASSIGNED PCP Primary Care Unavailable SHERRY MAGAÑA Admitting Unavailable DOLORES COX Attending UnavailJIN Venegas Consulting Unavailable PALOMO, MIGUEL ANGEL Primary Care Unavailable GENERIC PROVIDER, NO ASSIGNED PCP Primary Care Unavailable PALOMO, MIGUEL ANGEL Primary Care Unavailable BRINEVE JACQUES Consulting Unavailable SHERRY MAGAÑA M Admitting Unavailable GÓMEZ WOOSBAHMAN M Attending Unavailable GÓMEZ, WOOSBAHMAN M Consulting Unavailable GLOVATSKAYA, BECKY Consulting Unavailable JAH-ULI, KURT Consulting Unavailable PARK, WOOSUP M Attending Unavailable PARK, WOOSUP M Attending Unavailable WINTER RICKETTS Primary Care Unavailable GÓMEZ WOOSBAHMAN M Attending Unavailable GENERIC PROVIDER, NO ASSIGNED PCP Primary Care Unavailable GENERIC PROVIDER, NO ASSIGNED PCP Primary Care Unavailable BALDOMERO WOODARD Admitting Unavailable DOLORES COX Attending Unavaila ble SHERRY MAGAÑA M Consulting Unavailable DAVID VALADEZ Referring Unavailable GENERIC PROVIDER, NO ASSIGNED PCP Primary Care Unavailable CRISTHIAN, JAQUAN L Primary Care Unavailable TIFFANIE CHIU Attending UnavailSYLVAIN Cifuentes Referring Unavailable CRISTHIAN, JAQUAN L Primary Care Unavailable GUTNICKDEACON Referring Unavailable CRISTHIAN, JAQUAN L Primary Care Unavailable SHEY, DEACON R Admitting Unavailable GUTNICK, DEACON Ahumada Attending Unavailable EARNEST MC Referring Unavailable CRISTHIAN, JAQUAN L Primary Care Unavailable CRISTHIAN, JAQUAN L Primary Care Unavailable GUTNICK, DEACON R Admitting Unavailable GUTNICK, DEACON R Attending Unavailable CRISTHIAN, JAQUAN L Primary Care Unavailable CRISTHIAN, JAQUAN L Primary Care Unavailable DO HAMM CHRISTOPHER Attending Unavaila ble CRISTHIAN, JAQUAN L Primary Care Unavailable GUTNICK, DEACON R Admitting Unavailable NAFFOUAUGUSTA, SAMER Consulting Unavailable GUTDEACON REEVES R Attending Unavailable GUTNICK, DEACON R Referring Unavailable CRISTHIAN, JAQUAN L Primary Care Unavailable GUTNICK, DEACON R Admitting Unavailable GUTNICK, DEACON R Attending Unavailable DO Jeramy Cunningham Emergency Provider [phone] MARCOS MORENO Attending Unavailable JR. WARREN GEORGE C Attending Unavaila ble JR. WARREN GEORGE C Referring Unavaila ble Agustin Bautista Unavailable [phone] Thomas Calix MD Primary Care Provider [phone] NONE, XXXX Primary Care Physician Unavailab Mateusz Mccoy Attending Unavailable Earnest Jett Attending Unavailable Cristhian, Jaquan Johnson Attending Unavailable Cristhian, Jaquan Johnson Attending Unavailable Cristhian, Jaquan Johnson Attending Unavailable Cristhian, Jaquan Johnson Attending Unavailable Cristhian, Jaquan Johnson Attending Unavailable Cristhian, Jaquan Johnson Attending Unavailable Cristhian, Jaquan Johnson Attending Unavailable Lokesh Terry Attending Unavailable Cristhian, Jaquan Johnson Attending Unavailable Cristhian, Jaquan Johnson Attending Unavailable Cristhian, Jaquan Johnson Attending Unavailable Cristhian, Jaquan Johnson Admitting Unavailable Cristhian, Jaquan L Admitting Unavailable Cristhian, Jaquan L Admitting Unavailable Cristhian, Jaquan Johnson Attending Unavailable Cristhian, Jaquan Johnson Attending Unavailable Cristhian, Jaquan Johnson Attending Unavailable Cristhian, Jaquan Johnson Attending Unavailable Cristhian, Jaquan Johnson Attending Unavailable Cristhian, Jaquan Johnson Attending Unavailable Johnie, Earnest Attending Unavailable Hajdmarshall, Astrjessenia H Attending Unavailable Johnie, Earnest Attending Unavailable Cristhian, Jaquan Johnson Admitting Unavailable Cristhian, Jaquan Johnson Admitting Unavailable Cristhian, Jaquan Johnson Attending Unavailable Rajni Rouse Attending Unavailable OLGA GATICA Attending Unavailable Johnie, Earnest Attending Unavailable Jose Ramon, Astrit H Attending Unavailable Mateusz Garcia Attending Unavailable Mateusz Garcia Attending Unavailable Mateusz Garcia Attending Unavailable Cristhian, Jaquan Johnson Attending Unavailable Cristhian, Jaquan Johnson Admitting Unavailable Moncho Trejo Attending Unavailable Moncho Trejo Admitting Unavailable Jon Rivera Talal Consulting Unavaila MD Jon Good Talal Consulting Unava ilable Chacho Riverahammad Talal Consulting Unavaila Jon Good Talal Consulting Unavaila ble Adamowicz, Gabino Consulting Unavailable Adamowicz, DO Gabino Consulting Unavailabl e Adamowicz, Gabino Consulting Unavailable Adamowicz, Gabino Consulting Unavailable Adamowicz, Gabino Consulting Unavailable Adamowicz, Gabino Consulting Unavailable Adamowicz, Gabino Consulting Unavailable Adamowicz, Gabino Consulting Unavailable Adamowicz, Gabino Consulting Unavailable RAYNA BILLINGSLEY Attending Unavailable CRISTHIAN, JAQUAN Johnson Primary Care Unavailable CHEYENNE FARNSWORTH Unavailable JACOBO LYNCH Admitting Unavailable MARIA TERESA MURILLO Attending Unavailable THOMAS CALIX Primary Care Unavailable LIBBY URBINA Admitting Unavailable LUCY, MAIDANA Attending Unavailable CRISELDA NO Admitting Unavailable CHETNA NESS Consulting Unavailable CRISTHIAN, JAQUAN L Primary Care Unavailable CRISTHIAN, JAQUAN L Primary Care Unavailable DEACON KAT Referring Unavailable CRISTHIAN, JAQUAN L Primary Care Unavailable JACKSON ANDERSON Referring Unavailab KEESHA Cook Attending Unavailable ADIBI, STEVE Attending Unavailable ELISA VIVEROS Consulting Unavailable BEATRICE, RASHMI Admitting Unavailable CRISTHIAN, JAQUAN L Primary Care Unavailable CRISTHIAN, JAQUAN L Primary Care Unavailable ADIBI, STEVE Admitting Unavailable MANICKAM, SUNDARA Attending Unavailable RIKI HUBBARDD Consulting Unavailable Thomas Calix M Primary Care Unavailable MarisaJeramy M Admitting Unavailable Marisa Jeramy M Attending Unavailable HoyThomas M Primary Care Unavailable Michael, Yazid Admitting Unavailable Michael, Yazid Attending Unavailable Keven Kimbrough Consulting Unavailable Gabino Parker Attending Unavailable Cristhian, Jaquan Ortega Primary Care Unavailable Gabino Parker Admitting Unavailable Cristhian, Jaquan Shannon Primary Care Unavailable Bullimore, Trace E Admitting Unavailable Bullimore, Trace E Attending Unavailable Cristhian, Jaquan Shannon Primary Care Unavailable Keister, Claus A Admitting Unavailable Keernst Claus A Attending Unavailable CRISTHIAN, JAQUAN L Primary Care Unavailable THACKERRYLEE Ahumada Referring Unavailable THACKERRYLEE Attending Unavailable BOOGIE MURGUIA Attending Unavailable THOMAS CALIX M Primary Care Unavailable VIC RAMOS Referring Unavailable VIC RAMOS Attending Unavailable HOTHOMAS Salomon M Primary Care Unavailable CRISTHIAN, JAQUAN L Primary Care Unavailable AGUSTIN ZAMORANO Attending Unavailable CRISTHIAN, JAQUAN L Primary Care Unavailable XIOMARA MARTINEZ Attending Unavailable CRISTHIAN, JAQUAN L Primary Care Unavailable CRISTHIAN, JAQUAN L Primary Care Unavailable KARINA العلي Attending Unavailable SEN MARCUS Admitting Unavaila SHANNA Fuller Attending Unavailable HOYTHOMAS M Primary Care Unavailable CRISTHIAN, JAQUAN L Primary Care Unavailable BREANNA STERN Referring Unavailable CRISTHIAN, JAQUAN L Primary Care Unavailable RYLEE THACKER Attending Unavailable ROBBIN THACKERTH Referring Unavailable VIC RAMOS Attending Unavailable CRISTHIAN, JAQUAN L Primary Care Unavailable MATIASVIC Attending Unavailable CRISTHIAN, JAQUAN L Primary Care Unavailable THACKERRYLEE Attending Unavailable THACKER, RYLEE Referring Unavailable CRISTHIAN, JAQUAN L Primary Care Unavailable SHANNA WOODS Attending Unavailable CRISTHIAN, JAQUAN L Primary Care Unavailable ROMIE HAIRSTON Admitting Unavailable THOMAS CALIX Primary Care Unavailable GutDeacon reeves Attending Unavailable CRISTHIAN, JAQUAN L Primary Care Unavailable SELF Referring Unavailable KASIE AVALOS Attending Unavailable CRISTHIAN, JAQUAN L Primary Care Unavailable GutDeacon reeves Attending Unavailable CRISTHIAN, JAQUAN L Primary Care Unavailable BREANNA STERN Attending Unavailable CRISTHIAN, JAQUAN L Primary Care Unavailable WALLY FOLEY Referring Unavailable CRISTHIAN, JAQUAN L Primary Care Unavailable RYLEE THACKER Attending Unavailable Deacon Kat Referring Unavailable BREANNA STERN Attending Unavailable CRISTHIAN, JAQUAN L Primary Care Unavailable CRISTHIAN, JAQUAN L Primary Care Unavailable MARCOS MORENO Referring Unavailable FRANCISCO J STEVE Attending Unavailable Deacon Kat Attending Unavailable CRISTHIAN, JAQUAN L Primary Care Unavailable Deacon Kat Referring Unavailable GutDeacon reeves Attending Unavailable CRISTHIAN, JAQUAN L Primary Care Unavailable Allergies Allergy Classification Reported Allergen(s) Allergy Type Date of Onset Reaction(s) Facility NSAIDs (1 source) NSAIDs; Translations: [NSAIDS (NON-STEROIDAL ANTI-INFLAMMATOR Y DRUG)] Drug Allergy 01-30-20 [facility] Other [place] [facility] Opioid Agonists (6 sources) Codeine; Translations: [CODEINE] Drug Allergy 10-04-19 GI Upset [facility] Other [place] [facility] (5 sources) Codeine And Related Propensity to adverse reactions to drug 07-08-19 14 Other (See Comments), Nausea And Vomiting [facility] (20 sources) Codeine; Translations: [codeine] Drug Allergy 10-04-19 20 GI Upset, Nausea/vomitin g [facility] (3 sources) Propofol Drug Allergy 06-19-19 Other: See Comments [facility] (20 sources) Adhesive Tape-Silicones; Translations: [ADHESIVE TAPE-SILICONES] Drug Intolerance 02-07-20 20 Intolerance [facility] (2 sources) Morphine And Related Propensity to adverse reactions to drug 07-08-19 14 Other (See Comments), Nausea And Vomiting [facility] (7 sources) Codeine Drug Allergy vomiting [facility] Other (4 sources) Acetaminophen / oxyCODONE Drug Allergy anaphylaxis [facility] Other (20 sources) Non-steroidal anti-inflammator y agent; Translations: [NSAIDS (NON-STEROIDAL ANTI-INFLAMMATOR Y DRUG)] Propensity to adverse reactions to drug 01-30-20 22 Contraindicati on-Medical Surgical, Nausea/vomitin g [facility] Work Phone: (1 source) Codeine Drug Allergy 07-08-19 14 [facility] (1 source) Anastia Drug allergy (disorder) [facility] (15 sources) Non-steroidal anti-inflammator y agent; Translations: [NSAIDs] Drug allergy Unknown (qualifier value) [facility] (2 sources) Acetaminophen; Translations: [acetaminophen] Drug Allergy 04-06-19 anaphylaxis [facility] (7 sources) oxyCODONE; Translations: [oxycodone] Drug Allergy 04-06-19 24 anaphylaxis [facility] (5 sources) NSAIDS (Non-Steroidal Anti-Inflamma; Translations: [NSAIDS (Non-Steroidal Anti-Inflamma] Propensity to adverse reactions 07-16-19 24 d/t surgery [facility] (1 source) Codeine Drug Allergy 07-31-19 24 [facility] Medications Current Medications Medication Drug Class(es) Dates Sig (Normalized) Sig (Original) minipill Birthcontrol (2 sources) Start: 03-07-2018 minipill Birthcontrol minipill Birthcontrol, Daily Start Date: 03/07/18 Status: Ordered acetaminophen 325 mg / butalbital 50 mg / caffeine 40 mg oral tablet (2 sources) Barbiturate, Central Nervous System Stimulant, Methylxanthine Start: 06-17-2023 take 1 tablet by mouth every four hours as needed acetaminophen 325 mg-caffeine 40 mg-butalbital 50 mg (FIORICET) per tablet Take 1 tablet by mouth every 4 hours as needed for headache. 0 06/17/2023 Active acetaminophen 300 mg / codeine phosphate 15 mg oral tablet (5 sources) Opioid Agonist Start: 05-05-2022 acetaminophen-code ine 300 mg-15 mg oral tablet 1 tab(s), Oral, BID, 30 tab(s), Refill(s) 0, [facility]/pharmacy #[id number], 167.2, cm, 05/05/22 13:30:00 EDT, Height/Length Dosing, 84.5, kg, 05/05/22 13:30:00 EDT, Weight Dosing Start Date: 05/05/22 Status: Ordered Start: 2021 take 1 tablet by robinson th every six hours Acetaminophen-Codeine #3 300-30 MG 1 tablet as needed Orally every 6 hrs for 4 days Mar, Active acetaminophen 325 mg / oxyCODONE hydrochloride 5 mg oral tablet (20 sources) Opioid Agonist Start: 07-03-2023 take 1 tablet by mouth every four hours for pain oxyCODONE-acetaminophen (Percocet) 5-325 mg tablet Indications: Generalized abdominal pain Take 1 tablet by mouth every 4 hours if needed for severe pain (7 - 10). 20 tablet 07/03/2023 Active Start: 07-02-2023 take 1 tablet by robinson th every four hours as needed oxyCODONE-acetaminophen (Percocet) 5-325 mg per tablet 1 tablet Start: 03-15-2023 End: 05-30-2023 take 1 tablet by mouth every six hours Oxycodone-Acetaminophen Discontinued 1 TAB PO Q6H 10 April 06, 2023 May 30, 2023 5:49pm Start: 03-10-2023 take 1 tablet by robinson th every four hours for pain oxyCODONE-acetaminophen (Percocet) 5-325 mg tablet Indications: Median arcuate ligament syndrome (CMS/HCC) Take 1 tablet by mouth every 4 hours if needed for severe pain (7 - 10) (Advised against taking with edibles). 20 tablet 0 03/10/2023 Active Start: 03-08-2023 take 2 tablets by mo uth every four hours as needed oxyCODONE-acetaminophen (Percocet) 5-325 mg per tablet 2 tablet Start: 02-13-2023 End: 05-30-2023 take 1 tablet by mouth once daily Oxycodone-Acetaminophen (Percocet) 5-325 mg tablet Discontinued 1 TAB PO Daily 2 February 13, 2023 May 30, 2023 5:49pm Start: 10-19-2022 End: 10-22-2022 Percocet 5 mg-325 mg oral ta blet 1 tab(s), Oral, q6hr for 3 day(s), 10 tab(s), Refill(s) 0, [facility]/pharmacy #[id number], 168, cm, 10/19/22 8:44:00 EDT, Height/Length Dosing, 85.6, kg, 10/19/22 8:44:00 EDT, Weight Dosing Start Date: 10/19/22 Stop Date: 10/22/22 Status: Ordered Start: 06-07-2022 acetaminophen- oxycodone 325 mg-5 mg Tab 1 tab(s), Oral, q4hr for pain, 12 tab(s), Refill(s) 0, [facility]/pharmacy #[id number], 168, cm, 06/07/22 10:23:00 EDT, [...] day(s), # 28 tab(s), Refills(s) 0, Pharmacy: [facility]/pharmacy #[id number], 168, cm, 06/17/22 10:54:00 EDT, [...] robinson five times daily for 7 days. 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 1 Each 0 08/08/2023 Active Start: 06-30-2023 take 3 mL by inhalat ion every four hours as needed Start: 03-16-2023 take 2.5 mg by inhal ation every four hours as needed 2.5 mg, [...] as needed for wheezing/shortness of breath. 0 Suspended End: 12-08-2022 ALBUTEROL INHALATION Inhale as instructed. 0 12/08/2022 Discontinued (Erroneous entry) ALBUTEROL INHALA TION Inhale as instructed. 0 Suspended ALBUTEROL INHALA TION Inhale as instructed. 0 Active Comment on above: Inhale as instructed . Inhale 2 Puffs as in structed every 4 hours as needed for wheezing/shortness of breath. Albuterol (Eqv-Ventolin HFA) 90 mcg/inh inhalation aerosol (10 sources) Start: take 2 puff(s) by inhalation every six hours Albuterol (Eqv-Ventolin HFA) 90 mcg/inh inhalation aerosol 2 puff(s), Inhalation, q6hr, 18 gm, Refill(s) 3, [facility]/pharmacy #[id number], 167, cm, 05/17/23 14:25:00 EDT, Height/Length Dosing, 81, kg, 05/17/23 14:25:00 EDT, Weight Dosing Start Date: 05/31/23 Status: Ordered Start: 12-30-2022 take 2 puff(s) by in halation every six hours Albuterol (Eqv-Ventolin HFA) 90 mcg/inh inhalation aerosol 2 puff(s), Inhalation, q6hr, 18 gm, Refill(s) 0, [facility]/pharmacy #[id number], 168, cm, 12/29/22 15:01:00 EST, Height/Length Dosing, 83.8, kg, 12/29/22 15:01:00 EST, Weight Dosing Start Date: 12/30/22 Status: Ordered alteplase (Cathflo Activase) injection 2 mg (1 source) Start: 06-30-2023 2 mg, intra-catheter, As needed, line care, Starting on Wed06/30/23 at 0236, Via Central Line Removed by: Aspiration Inject into partial/totally occluded catheter lumen for total of 30 to 120 minute dwell time; assess patency at 30 minutes and if not patent, dwell for additional 90 minutes. If still not patent, repeat alteplase 2 mg injected into thrombotic partial or totally occluded lumen for a total of 120 minute dwell time; assess patency at 30 minutes and if not patent, dwell for 90 minutes. If still not patent, notify provider. Dilute each 2 mg vial with 2.2 mL sterile water to give 1 mg/mL final concentration. Swirl gently to mix; do not shake. amitriptyline hydrochloride 10 mg oral tablet (1 source) Tricyclic Antidepressant Start: 11-08-2022 End: 12-08-2022 take 1 tablet by mouth once daily at bedtime amitriptyline (ELAVIL) 10 mg tablet Take 1 tablet by mouth daily at bedtime. 30 tablet 0 11/08/2022 12/08/2022 Active Comment on above: Take 1 tablet by robinson daily at bedtime. azithromycin 250 mg oral tablet (1 source) Macrolide Antimicrobial Start: 12-29-2022 End: 01-03-2023 azithromycin 250 mg Tab = 1 packet(s), Oral, As Directed, as directed on package labeling, X 5 day(s), # 6 tab(s), Refills(s) 0, Pharmacy: [facility]/pharmacy #[id number], 168, cm, 12/29/22 15:01:00 EST, Height/Length Dosing, 83.8, kg, 12/29/22 15:01:00 EST, Weight Dosing Start Date: 12/29/22 Stop Date: 01/03/23 Status: Ordered baclofen 5 mg oral tablet (8 sources) gamma-Aminobutyric Acid-ergic Agonist Start: 12-09-2022 End: 01-13-2023 take 2 tablets by mouth three times [...] on above: Take 2 tablets by mo [facility] three times a day as needed for 14 days, THEN 1 tablet three times a day as needed for 7 days, THEN 1 tablet two times a day as needed for 7 days, THEN 1 tablet once daily as needed for up to 7 days. benzonatate 200 mg oral capsule (1 source) Non-narcotic Antitussive Start: 12-29-2022 End: 01-05-2023 take 1 capsule by mouth three times daily benzonatate 200 mg oral capsule 200 mg = 1 cap(s), Oral, TID, X 7 day(s), # 21 cap(s), Refills(s) 0, Pharmacy: [facility]/pharmacy #[id number], 168, cm, 12/29/22 15:01:00 EST, Height/Length Dosing, 83.8, kg, 12/29/22 15:01:00 EST, Weight Dosing Start Date: 12/29/22 Stop Date: 01/05/23 Status: Ordered Blood Glucose Monitoring Suppl Supplies (2 sources) Start: 08-17-2021 Blood Glucose Monitoring Suppl Supplies as directed SQ bid for 30 day(s) Aug, Active Blood Glucose Monitoring Suppl w/Device (2 sources) Blood Glucose Monitoring Suppl w/Device as directed for 30 day(s) Active busPIRone hydrochloride 15 mg oral tablet (20 sources) Start: 02-13-2023 take 15 mg by mouth three times daily Buspirone Active 15 MG PO Three times daily February 13, 2023 1:00am Start: 02-13-2023 take 1 tablet by robinson twice daily Buspirone (Buspar) 15 mg Tablet Active 15 MG PO Twice daily February 13, 2023 1:00am Start: 11-10-2022 End: 12-06-2023 take 1 tablet by mouth three times daily busPIRone (BUSPAR) 10 mg tablet Indications: Generalized anxiety disorder Take 1 tablet by mouth three times a day. 270 tablet 1 06/09/2023 12/06/2023 Active Start: 11-03-2022 End: 06-09-2023 take 1 tablet by mouth twice daily busPIRone (BUSPAR) 10 mg tablet Indications: Generalized anxiety disorder Take 1 tablet by mouth two times a day. 180 tablet 1 06/03/2023 06/09/2023 Discontinued Start: 10-29-2022 busPIRone (BUS PAR) 10 mg [...] day(s), # 20 tab(s), Refills(s) 0, Pharmacy: [facility]/pharmacy #[id number], 168, cm, 06/17/22 10:54:00 EDT, [...] spasms 21 tablet 0 10/31/2022 11/07/2022 Active diazePAM 5 mg oral tablet (20 sources) Benzodiazepine Start: 03-20-2023 take 1 tablet by mouth every eight hours for muscle spasms diazePAM (Valium) 5 mg tablet Indications: Median arcuate ligament syndrome (CMS-HCC) Take 1 tablet (5 mg) by mouth every 8 hours if needed for muscle spasms. 10 tablet 03/20/2023 Active Start: 03-17-2023 take 5 mg intravenou sly every four hours as needed diazePAM (Valium) injection 5 mg Start: 03-15-2023 End: 03-18-2023 take 1 tablet by mouth every eight hours for muscle spasms diazePAM (Valium) 5 mg tablet Indications: Median arcuate ligament syndrome (CMS-HCC) Take 1 tablet (5 mg) by mouth every 8 hours if needed for muscle spasms. 10 tablet 03/20/2023 Active Start: 03-10-2023 take 1 tablet [...] as needed diazePAM (Valium) injection 5 mg dicyclomine hydrochloride 20 mg oral tablet (16 sources) Anticholinergic Start: 05-06-2023 End: 05-13-2023 take 1 tablet by mouth four times daily dicyclomine 20 mg Tab 20 mg = 1 tab(s), Oral, QID, X 7 day(s), # 28 tab(s), Refills(s) 0, Pharmacy: [facility]/pharmacy #[id number], 167, cm, 05/06/23 15:49:00 EDT, Height/Length Dosing, 82.7, kg, 05/06/23 15:49:00 EDT, Weight Dosing Start Date: 05/06/23 Stop Date: 05/13/23 Status: Ordered Start: 04-02-2023 take 2 capsules by m outh four times daily Bentyl 10 mg Cap 20 mg = 2 cap(s), Oral, QID, # 20 cap(s), Refills(s) 0, Pharmacy: [facility]/pharmacy #[id number], 167, cm, 04/02/23 11:01:00 EST, Height/Length Dosing, 82.7, kg, 04/02/23 11:01:00 EST, Weight Dosing Start Date: 04/02/23 Status: Ordered Start: 06-05-2022 End: 06-15-2022 take 1 capsule by mouth four times daily Bentyl 10 mg Cap 10 mg = 1 cap(s), Oral, QID, X 10 day(s), # 40 cap(s), Refills(s) 0, Pharmacy: [facility]/pharmacy #[id number], 167.2, cm, 05/05/22 13:30:00 EDT, Height/Length Dosing, 84.5, kg, 05/05/22 13:30:00 EDT, Weight Dosing Start Date: 06/05/22 Stop Date: 06/15/22 Status: Ordered Start: 12-20-2020 take 2 capsules by m out four times daily Bentyl 10 mg Cap 20 mg = 2 cap(s), Oral, QID, # 20 cap(s), Refills(s) 0, [id number], cm, 12/20/20 9:30:00 EDT, Height/Length Dosing, 90, kg, 12/20/20 9:30:00 EDT, Weight Dosing Start Date: 12/20/20 Status: Ordered Start: 07-02-2020 End: 07-02-2020 dicyclomine (BENTYL) injecti on 20 mg diphenhydrAMINE hydrochloride 20 mg/ml / zinc acetate 1 mg/ml topical cream (1 source) Histamine-1 Receptor Antagonist Start: 03-08-2023 diphenhydramine-zinc acetate cream docusate sodium 100 mg oral tablet (20 sources) Start: 06-11-2023 take 100 mg by mouth twice daily as needed for constipation Colace 100 mg, Oral, BID, PRN as needed for constipation, Refills(s) 0 Start Date: 06/11/23 Status: Ordered Start: 06-09-2023 take 1 capsule by mo ut every twelve hours as needed docusate sodium [...] above: Take 1 capsule by mo ut three times daily. decrease the dose or stop for diarrhea doxycycline monohydrate 100 mg oral tablet (10 sources) Tetracycline-class Drug Start: 07-06-2023 End: 07-11-2023 take 1 tablet by mouth twice daily doxycycline monohydrate 100 mg tablet Take 1 tablet by mouth two times a day for 5 days. 10 tablet 0 07/06/2023 07/11/2023 Active Start: 05-29-2022 take 1 capsule by mo uth twice daily doxycycline hyclate 100 mg Cap 100 mg = 1 cap(s), Oral, BID, # 20 cap(s), Refills(s) 0, Pharmacy: [facility]/pharmacy #[id number], 167.2, cm, 05/05/22 13:30:00 EDT, [...] Sep, Active take 1 capsule by mo uth twice daily DULoxetine (CYMBALTA) 30 MG extended [...] Reuptake Inhibitor Start: 09-16-2022 End: 04-11-2023 take 1 tablet by mouth once daily escitalopram oxalate (LEXAPRO) 20 mg tablet Indications: Generalized anxiety disorder , Major depressive disorder, recurrent episode, moderate (HCC) Take 1 tablet by mouth once daily. 90 tablet 1 07/15/2023 Active Start: 05-05-2022 End: 09-12-2022 take 1 [...] mg tablet Indications: Median arcuate ligament syndrome (CMS-HCC) Take 1 tablet (20 mg) by mouth 2 times a day. 60 tablet 03/10/2023 Active Start: 03-05-2023 famotidine (Pe pcid) tablet 20 mg Start: 04-02-2021 End: 03-10-2023 take 1 tablet by mouth once daily famotidine (Pepcid) 40 mg tablet Take 1 tablet (40 mg) by mouth once daily. 0 02/03/2022 03/10/2023 Discontinued (Stop Taking at Discharge) Comment on above: Take 1 tablet by robinson th once daily. ferrous sulfate 325 mg oral tablet (12 sources) Start: 03-06-2023 take 1 tablet by mouth once daily at breakfast 1 tablet, oral, Daily with breakfast, First dose on Heena 07/01/23 at 0800 take 1 tablet by mouth twice fracisco ly ferrous sulfate 325 mg (65 mg iron) tablet Take 1 tablet by mouth two times a day. 0 Active Fluticasone-Salmeterol 100-50 MCG/DOSE (2 sources) Start: 03-31-2021 take 1 puff(s) by inhalation twice daily Fluticasone-Salmeterol 100-50 MCG/DOSE 1 puff Inhalation Twice a day for 30 day(s) Mar, Active gabapentin 100 mg oral capsule (20 sources) Anti-epi leptic Agent Start: 01-08-2023 End: [...] Active Start: 01-20-2021 take 1 capsule by [facility] once daily, then take 1 capsule by mouth twice daily, then take 1 capsule by mouth three times daily gabapentin 300 mg Cap See Instructions, 1 cap(s) Oral daily x 1 day, 1 tab BID x 1 day, then 1 tab TID thereafter., # 90 cap(s), Refills(s) 0, Pharmacy: [facility]/pharmacy #[id number], 167, cm, 01/16/21 13:32:00 EST, Height/Length Dosing, 91.9, kg, 01/16/21 13:32:00 EST, Weight Dosing Start Date: 01/20/21 Status: Ordered Gabapentin Activ e Comment on above: take 1 tab PO BID x 7 days, then increase to 2 tabs PO BID x 7 days, then increase to 2 tabs PO TID if tolerated. glucagon (rdna) 1 mg injection (3 sources) Antihypoglycemic Agent Start: 06-30-2023 1 mg, intramuscular, Every 15 min PRN, low blood sugar - see comments, For blood glucose 41 to 70 mg/dL and no IV access, Starting on Wed06/30/23 at 0230, Give until blood glucose is 100 mg/dL or greater. If patient DOES NOT HAVE secure IV access & patient is unconscious, NPO or is unable to eat or drink. Start: 03-05-2023 glucagon (Gluc agen) injection 1 mg 1000 ml glucose 100 mg/ml injection (5 sources) Start: 06-30-2023 take 75 mL intravenously every hour 75 mL/hr, intravenous, Continuous, Starting on Wed06/30/23 at 1945, Infuse only while clinimix is not running/infusing Start: 06-30-2023 12.5 g, intrav enous, Every 15 min PRN, For blood glucose 41 to 70 mg/dL, Starting on Wed06/30/23 at 0230, May repeat until blood glucose level reaches 100 mg/dL or greater. Push 2 - 3 mL/minute if patient has secure IV access. Start: 03-05-2023 dextrose 50 % injection 25 g Start: 03-05-2023 dextrose 10 % in water (D10W) infusion 1 ml heparin sodium, porcine 5000 unt/ml injection (2 sources) Unfractionated Heparin, Anti-coagulant Start: 06-30-2023 inject 5000 [IU] by subcutaneous injection every twelve hours 5,000 Units, subcutaneous, Every 12 hours, First dose on Wed06/30/23 at 0900 Start: 03-16-2023 heparin (porci ne) injection 5,000 Units 0.5 ml HYDROmorphone hydrochloride [...] mouth once daily as needed for anxiety. 11/13/2022 Active Start: 09-15-2022 End: 12-08-2022 take [...] injectable solution (1 source) Insulin Analog Start: 03-05-2023 insulin lispro (HumaLOG) injection 0-5 Units Ketamine (20 sources) General Anesthetic Start: 08-05-2023 End: 07-28-2024 ketamine 5% nasal spray solution (CPD) Indications: Gastroesophageal reflux disease without esophagitis , Neuralgia and neuritis , Median arcuate ligament syndrome (HCC) , Chronic abdominal pain , S/P gastric bypass 0.1 mL/spray. Use as directed. 1 spray by nose twice per day x 3 days, then increase to 2 sprays by nose twice per day if tolerated. Added volume to account for dispenser loss. Physician office visit required for refill. 12 mL 0 08/05/2023 07/28/2024 Active Start: 08-04-2023 End: 08-05-2023 ketamine 5% nasal spray solu tion (CPD) Indications: Gastroesophageal reflux disease without esophagitis , Neuralgia and neuritis , Median arcuate ligament syndrome (HCC) , Chronic abdominal pain , S/P gastric bypass 0.1 mL/spray. Use as directed. 1 spray by nose twice per day x 3 days, then increase to 2 sprays by nose twice per day if tolerated. Added volume to account for dispenser loss. Physician office visit required for refill. 12 mL 0 08/04/2023 08/05/2023 Discontinued Start: 08-04-2023 End: 07-27-2024 ketamine 5% nasal spray solu tion (CPD) Indications: Gastroesophageal reflux disease without esophagitis , Neuralgia and neuritis , Median arcuate ligament syndrome (HCC) , Chronic abdominal pain , S/P gastric bypass 0.1 mL/spray. Use as directed. 1 spray by nose twice per day x 3 days, then increase to 2 sprays by nose twice per day if tolerated. Added volume to account for dispenser loss. Physician office visit required for refill. 12 mL 0 08/04/2023 07/27/2024 Suspended Start: 08-04-2023 End: 08-04-2023 ketamine 5% nasal spray solu tion (CPD) Indications: Gastroesophageal reflux disease without esophagitis , Neuralgia and neuritis , Median arcuate ligament syndrome (HCC) , Chronic abdominal pain , S/P gastric bypass 0.1 mL/spray. Use as directed. 1 spray by nose twice per day x 3 days, then increase to 2 sprays by nose twice per day if tolerated. Added volume to account for dispenser loss. Physician office visit required for refill. 12 mL 0 08/04/2023 08/04/2023 Discontinued Start: 06-01-2023 End: 08-04-2023 ketamine 5% nasal spray solu tion (CPD) Indications: Gastroesophageal reflux disease without esophagitis , Neuralgia and neuritis , Median arcuate ligament syndrome (HCC) 0.1 mL/spray. Use as directed. 1 spray by nose twice per day x 3 days, then increase to 2 sprays by nose twice per day if tolerated. Added volume to account for dispenser loss. Physician office visit required for refill. 12 mL 0 06/01/2023 08/04/2023 Discontinued Start: 06-01-2023 End: 05-24-2024 ketamine 5% nasal spray solu tion (CPD) Indications: Gastroesophageal reflux disease without esophagitis , Neuralgia and neuritis , Median arcuate ligament syndrome (HCC) 0.1 mL/spray. Use as directed. 1 spray by nose twice per day x 3 days, then increase to 2 sprays by nose twice per day if tolerated. Added volume to account for dispenser loss. Physician office visit required for refill. 12 mL 0 06/01/2023 05/24/2024 Suspended Start: 06-01-2023 End: 05-24-2024 ketamine 5% nasal spray solu tion (CPD) Indications: Gastroesophageal reflux disease without esophagitis [...] office visit required for refill. levothyroxine sodium 0.1 mg oral tablet (20 sources) l-Thyroxine Start: 06-30-2023 100 mcg, j-tube, Daily before breakfast, First dose on Wed06/30/23 at 0600 Start: 06-09-2023 End: 09-07-2023 take 1 tablet by mouth once daily levothyroxine (SYNTHROID) 75 mcg tablet Indications: Hypothyroidism, unspecified type Take 1 tablet by mouth once daily. 90 tablet 0 06/09/2023 09/07/2023 Active Start: 05-03-2023 take 1 tablet by robinson once daily levothyroxine 75 mcg (0.075 mg) Tab 75 mcg = 1 tab(s), Oral, Daily, # 60 tab(s), Refills(s) 1, [id number], cm, 04/02/23 11:01:00 EST, Height/Length Dosing, 82.7, kg, 04/02/23 11:01:00 EST, Weight Dosing Start Date: 05/03/23 Status: Ordered Start: 03-03-2023 take 1 tablet by robinson once daily levothyroxine 100 mcg (0.1 mg) Tab 100 mcg = 1 tab(s), Oral, Daily, # 90 tab(s), Refills(s) 0, Pharmacy: [facility], 168, cm, 02/03/23 14:52:00 EST, Height/Length Dosing, 85.5, kg, 02/03/23 14:52:00 EST, Weight Dosing Start Date: 03/03/23 Status: Ordered Start: 10-05-2022 take 1 tablet by robinson once daily levothyroxine 100 mcg (0.1 mg) Tab 100 mcg = 1 tab(s), Oral, Daily, # 30 tab(s), Refills(s) 1, Pharmacy: [facility]/pharmacy #[id number], 168, cm, 07/29/22 8:44:00 EDT, Height/Length Dosing, 81, kg, 07/29/22 8:44:00 EDT, Weight Dosing Start Date: 10/05/22 Status: Ordered Start: 07-22-2022 take 1 tablet by robinson th once daily levothyroxine 125 mcg (0.125 mg) Tab See Instructions, TAKE 1 TABLET BY MOUTH EVERY DAY, # 30 tab(s), Refills(s) 2, Pharmacy: [facility]ORE [id number], 168, cm, 07/20/22 10:48:00 EDT, Height/Length Dosing, 81.1, kg, 07/20/22 10:48:00 EDT, Weight Dosing Start Date: 07/22/22 Status: Ordered Start: 04-23-2022 take 1 tablet by robinson th once daily levothyroxine 125 mcg (0.125 mg) Tab 125 mcg = 1 tab(s), Oral, Daily, # 90 tab(s), Refills(s) 0, Pharmacy: [facility]/pharmacy #[id number], 167.6, cm, 04/15/21 22:31:00 EST, Height/Length Dosing, 93.2, kg, 04/15/21 22:31:00 EST, Weight Dosing Start Date: 04/23/22 Status: Ordered Start: 04-07-2021 End: 06-09-2023 take 100 ug by mouth once daily Levothyroxine Active 100 MCG PO Daily February 13, 2023 1:00am Start: 03-04-2018 take 75 ug by mouth once daily levothyroxine 75 mcg, Oral, Daily, Refills(s) 0, Thyroid Start Date: 03/04/18 Status: Ordered take 1 tablet by robinson th once daily levothyroxine (SYNTHROID) 75 MCG tablet Take 1 tablet by mouth Daily 0 Active Levothyroxine So dium Active Comment on above: Take 1 tablet by robinson th once daily. linaclotide 0.29 mg oral capsule (20 sources) [...] on above: Take 1 capsule by mo [facility] DAILY (6 AM). Take 1 capsule by mo [facility] daily at 6 am. liothyronine sodium 0.005 mg oral tablet (20 sources) l-Triiodothyronin e Start: 03-03-2023 take 1 tablet by mouth once daily liothyronine 5 mcg Tab 5 mcg, Oral, Daily, # 90 tab(s), Refills(s) 3, Pharmacy: [facility], 168, cm, 02/03/23 14:52:00 EST, Height/Length Dosing, 85.5, kg, 02/03/23 14:52:00 EST, Weight Dosing Start Date: 03/03/23 Status: Ordered Start: 11-25-2022 take 1 tablet by robinson once daily liothyronine 5 mcg Tab 5 mcg, Oral, Daily, # 90 tab(s), Refills(s) 3, Pharmacy: [facility]/pharmacy #[id number], 168, cm, 11/25/22 11:03:00 EDT, Height/Length Dosing, 82.5, kg, 11/25/22 11:03:00 EDT, Weight Dosing Start Date: 11/25/22 Status: Ordered Start: 05-21-2022 take 1 tablet by robinson once daily liothyronine 5 mcg Tab 5 mcg, Oral, Daily, # 90 tab(s), Refills(s) 1, Pharmacy: [facility]/pharmacy #[id number], 167.2, cm, 05/05/22 13:30:00 EDT, Height/Length Dosing, 84.5, kg, 05/05/22 13:30:00 EDT, Weight Dosing Start Date: 05/21/22 Status: Ordered Start: 09-11-2019 take 5 ug by mouth once daily Liothyronine Active 5 MCG PO Daily February 13, 2023 1:00am take 1 tablet by robinson every twenty-four hours Liothyronine Sodium 5 MCG [...] dizziness, # 30 tab(s), Refills(s) 0, Pharmacy: [facility]/pharmacy #[id number], 168, cm, 06/10/22 10:57:00 EDT, Height/Length Dosing, 83.7, kg, 06/10/22 10:57:00 EDT, Weight Dosing Start Date: 06/10/22 Status: Ordered metFORMIN hydrochloride 1000 mg oral tablet (6 sources) Biguanide Start: 03-04-2018 take 1000 mg by mouth twice daily metformin 1,000 mg, Oral, BID, Refills(s) 0, Blood glucose Start Date: 03/04/18 Status: Ordered take 2 tablets by mo [facility] twice daily at mealtime metformin 500 MG Tab tablet Take 1,000 m g by mouth 2 times daily with meals. 0 Active methocarbamol 750 mg oral tablet (20 sources) Muscle Relaxant Start: 06-30-2023 take 750 mg by mouth three times daily 750 mg, oral, 3 times daily, First dose on Wed06/30/23 at 2100 Start: 06-30-2023 End: 06-30-2023 take 1 tablet enteral route every six hours as needed 500 mg, j-tube, Every 6 hours PRN, muscle spasms, Starting on Wed06/30/23 at 0359 Start: 06-02-2023 [facility] Robaxin-750 oral tablet 750 mg = 1 tab(s), Oral, BID, Refills(s) 0 Start Date: 06/02/23 Status: Ordered Start: 05-30-2023 take 500 mg by mouth [...] day(s), # 21 tab(s), Refills(s) 0, [id number], cm, 12/29/22 15:01:00 EST, Height/Length Dosing, 83.8, kg, 12/29/22 15:01:00 EST, Weight Dosing Start Date: 12/29/22 Stop Date: 01/04/23 Status: Ordered Start: 07-20-2022 End: 07-26-2022 Medrol 4 mg Tab = 1 packet(s ), Oral, As Directed, as directed on package labeling, X 6 day(s), # 21 tab(s), Refills(s) 0, [id number] 168, cm, 07/20/22 10:48:00 EDT, Height/Length [...] labeling, # 21 tab(s), Refills(s) 0, Pharmacy: [facility]/pharmacy #[id number], 167, cm, 04/02/23 11:01:00 EST, Height/Length Dosing, 82.7, kg, 04/02/23 11:01:00 EST, Weight Dosing Start Date: 04/20/23 Status: Ordered metoclopramide 10 mg oral tablet (20 sources) Dopamine-2 Receptor Antagonist Start: 08-14-2023 take 1 tablet by mouth every six hours Metoclopramide Hcl (Reglan) 10 mg tablet Active 10 MG PO Every 6 hours August 14, 2023 12:00am Start: 06-30-2023 take 5 mg by mouth t hree times daily 5 mg, oral, 3 times daily (morning, midday, late afternoon), First dose on Wed06/30/23 at 1745 Start: 06-30-2023 End: 06-30-2023 5 mg, intravenous, Every 6 h ours scheduled, First dose on Wed06/30/23 at 0235 Start: 05-30-2023 take 10 mg by mouth three times daily Metoclopramide Hcl Active 10 MG PO Three times daily May 30, 2023 12:00am Start: 03-24-2023 take 1 tablet by robinson th four times daily metoclopramide 10 mg Tab 10 mg = 1 tab(s), Oral, QID, # 120 tab(s), Refills(s) 0 Start Date: 03/24/23 Status: Ordered Start: 03-20-2023 take 0.5 tablet by out three times daily at mealtime metoclopramide (Reglan) [...] Prod Active metroNIDAZOLE 500 mg oral tablet (3 sources) Nitroimidazole Antimicrobial Start: 08-06-2023 End: 08-13-2023 take 1 tablet by mouth three times daily metroNIDAZOLE (FLAGYL) 500 mg tablet Take 1 tablet by mouth three times a day for 7 days. 21 tablet 0 08/06/2023 08/13/2023 Active Start: 06-17-2022 End: 06-27-2022 take 1 tablet by mouth every eight hours MetroNIDAZOLE 500 mg Tab 500 mg = 1 tab(s), Oral, q8hr, X 10 day(s), # 30 tab(s), Refills(s) 0, Pharmacy: [facility]/pharmacy #[id number], 168, cm, 06/17/22 10:54:00 EDT, Height/Length Dosing, 83.1, kg, 06/17/22 10:54:00 EDT, Weight Dosing Start Date: 06/17/22 Stop Date: 06/27/22 Status: Ordered midodrine hydrochloride 5 mg oral tablet (2 sources) alpha-Adrenergic Agonist Start: 08-06-2023 take 1 tablet by mouth every eight hours midodrine (PROAMITINE) 5 mg tablet Take 1 tablet by mouth every 8 hours. Please do not take this if systolic blood pressure greater than 110. Please discuss with your primary doctor if this needs to be continued especially if low blood pressures persist 30 tablet 0 08/06/2023 Active 24 hr mirabegron 25 mg extended release oral tablet (11 sources) beta3-Adrenergic Agonist Start: 07-06-2023 take 1 tablet by mouth once daily mirabegron (MYRBETRIQ) 25 mg Tb24 Take 1 tablet by mouth once daily. 90 tablet 3 07/06/2023 Active mirtazapine 30 mg oral tablet (20 sources) Start: 06-03-2023 End: 11-30-2023 take 1 tablet by mouth once daily at bedtime mirtazapine (REMERON) 30 mg tablet Indications: Generalized anxiety disorder , Major depressive disorder, recurrent episode, moderate (HCC) Take 1 tablet by mouth daily at bedtime. 90 tablet 1 06/03/2023 11/30/2023 Active Start: 02-13-2023 take 30 mg by mouth once daily Mirtazapine Active 30 MG PO Daily February 13, 2023 1:00am Start: 11-10-2022 take 2 tablets by [facility] once daily at bedtime mirtazapine (Remeron) 15 mg tablet Take 2 tablets (30 mg) by mouth once daily at bedtime. 30 MG CURRENTLY 11/10/2022 Active Start: 09-09-2021 End: 05-09-2023 take 1 tablet by mouth once daily at bedtime mirtazapine (Remeron) 15 mg tablet Take 1 tablet (15 mg) by mouth once daily at bedtime. 11/10/2022 Active Start: 06-27-2021 take 1 tablet [...] TABLET BY ROBINSON TH DAILY AT BEDTIME [facility] [place] Start: 06-11-19 [facility] [place] Date: 06/11/23 Status: Ordered 1 ml morphine sulfate 2 mg/ml prefilled syringe (9 sources) Opioid Agonist Start: 07-02-19 take 2 mg intravenously every six hours as needed 2 mg, intravenous, Every 6 hours PRN, pain breakthrough, Starting on Wed07/02/23 at 1401 Start: 07-01-2023 End: 07-02-2023 take 4 mg intravenously every four hours as needed 4 mg, intravenous, Every 4 hours PRN, pain severe (7-10), first line, Starting on Wed07/01/23 at 2138 Start: 07-01-2023 End: 07-01-2023 4 mg, intravenous, Once, On Wed07/01/23 at 1815, For 1 dose Start: 06-29-2023 End: 06-29-2023 4 mg, intravenous, Once, On Wed06/29/23 at 2335, For 1 dose Start: 03-18-2023 take 2 mg intravenou sly every four hours as needed morphine injection 2 mg Start: 03-17-2023 End: 03-18-2023 take 4 mg intravenously every four hours as needed morphine injection 4 mg Multi Vitamins oral tablet (4 sources) Start: 05-05-2022 Multi Vitamins oral tablet 1 tab(s), Oral, Daily, 30 tab(s), Refill(s) 0 Start Date: 05/05/22 Status: Ordered Naltrexone (6 sources) Opioid Antagonist Start: 08-04-2023 naltrexone 1 .5 mg capsule (CPD) Indications: Gastroesophageal reflux disease without esophagitis , Neuralgia and neuritis , Median arcuate ligament syndrome (HCC) , Chronic abdominal pain , S/P gastric bypass Take 1 capsule daily at 9 pm. May increase to 2 capsules if no relief after 2 weeks. Do not use calcium as a long filler cigar roller machine preparation. If insomnia or vivid dreams occur, then would take capsule at 9 am. 60 capsule 1 08/04/2023 Suspended Start: 08-04-2023 naltrexone 1.5 mg capsule (CPD) Indications: Gastroesophageal reflux disease without esophagitis , Neuralgia and neuritis , Median arcuate ligament syndrome (HCC) , Chronic abdominal pain , S/P gastric bypass Take 1 capsule daily at 9 pm. May increase to 2 capsules if no relief after 2 weeks. Do not use calcium as a long filler cigar roller machine preparation. If insomnia or vivid dreams occur, then would take capsule at 9 am. 60 capsule 1 08/04/2023 Active nutritional drink (Ensure Hi gh Protein) liquid (7 sources) Start: 03-10-[address] (Ensure High Protein) liquid Indications: Median arcuate ligament syndrome (CMS-HCC) Take 90 bottles by mouth every 30 (thirty) days. Take one 237mL bottles TID with meals for 30 days 237 mL 03/10/2023 Active Start: 03-10-[address] (Ensure High Protein) liquid Indications: Median arcuate ligament syndrome (CMS/HCC) Take 90 bottles by mouth every 30 (thirty) days. Take one 237mL bottles TID with meals for 30 days 237 mL 0 03/10/2023 Active nutritional supplements (NUT PIPO 2.0) 0.08 gram-2 kcal/mL liqd (20 sources) Start: 06-09-2023 End: 12-06-2023 nutritional supplements (NUT PIPO 2.0) 0.08 gram-2 kcal/mL liqd 45 mL/hr by FEEDING TUBE route continuous infusion starting at 6 pm. Plus 180cc q 4h water flushes. 1080 mL 3 06/09/2023 12/06/2023 Suspended Start: 06-09-2023 End: 12-06-2023 nutritional supplements (NUT [...] Run for 18 hours, off 6 hours. 18195 mL 3 05/29/2023 06/09/2023 Discontinued Start: 05-29-2023 End: 08-27-2023 nutritional supplements (NUT PIPO 2.0) 0.08 gram-2 kcal/mL liqd 45 mL/hr by FEEDING TUBE route once daily. Run for 18 hours, off 6 hours. 06610 mL 3 05/29/2023 08/27/2023 Active Start: 05-28-2023 End: 08-26-2023 nutritional supplements (NUT PIPO 2.0) 0.08 gram-2 kcal/mL liqd 45 mL/hr by FEEDING TUBE route once daily. Run for 18 hours, off 6 hours. 96115 mL 3 05/28/2023 08/26/2023 Active Comment on above: 45 mL/hr by FEEDING TUBE route once daily. Run for 18 hours, off 6 hours. nystatin [id number] unt/ml oral suspension (1 source) Polyene Antifungal Start: 06-09-19 End: 06-15-19 take 5 mL by mouth four times daily nystatin (MYCOSTATIN) 100,000 units/mL oral liquid Take 5 mL by mouth four times daily for 23 doses. Swish and swallow. 115 mL 0 06/09/2023 06/15/2023 Active ondansetron 8 mg disintegrating oral tablet (20 sources) Serotonin-3 Receptor Antagonist Start: 08-08-19 take 1 tablet by mouth every eight hours as needed ondansetron orally disintegrating (ZOFRAN ODT) 8 mg disintegrating tablet Take 1 tablet by mouth every 8 hours as needed for nausea/vomiting. 10 tablet 0 08/08/2023 Active Start: 07-01-2023 take 4 mg intravenou sly every six hours as needed 4 mg, intravenous, Every 6 hours PRN, nausea/vomiting, first line, Starting on Heena 07/01/23 at 1106, When administering via IV Push, administer over 3-5 minutes. Start: 03-17-2023 take 4 mg intravenou sly every six hours as needed ondansetron (Zofran) injection 4 mg Start: 03-05-2023 take 1 tablet by robinson th every eight hours as needed ondansetron (Zofran) tablet 4 mg Start: 03-05-2023 End: 03-05-2023 ondansetron (Zofran) injecti on 4 mg Start: 02-13-2023 End: 06-20-2023 take 4 mg by mouth every eight hours Ondansetron Hcl Active 4 MG PO Q8H February 13, 2023 1:00am Start: 12-01-2022 End: 07-03-2023 take 1 tablet by mouth every eight hours for nausea ondansetron ODT (Zofran-ODT) 4 mg disintegrating tablet Indications: Median arcuate ligament syndrome (CMS-HCC) Take 1 tablet (4 mg) by mouth every 8 hours if needed for nausea. 30 tablet 1 07/03/2023 Active Start: 11-19-2022 End: 12-19-2022 take 1 [...] q6hr, # 12 tab(s), Refills(s) 0, Pharmacy: [facility]/pharmacy #[id number], 168, cm, 06/07/22 10:23:00 EDT, Height/Length Dosing, 83, kg, 06/07/22 10:23:00 EDT, Weight Dosing Start Date: 06/07/22 Status: Ordered Start: 07-27-2021 End: 07-27-2021 ondansetron (ZOFRAN) injecti on 4 mg Start: 12-28-2020 take 1 tablet by robinson th three times daily Zofran ODT 4 mg Tab 4 mg = 1 tab(s), Oral, TID, # 10 tab(s), Refills(s) 0, [id number], cm, 12/20/20 9:30:00 EDT, Height/Length [...] above: Take 1 tablet by robinson every 8 hours as needed for nausea/vomiting. oxyCODONE hydrochloride 5 mg oral capsule (16 sources) Opioid Agonist Start: 05-14-19 take 1 capsule by mouth every six hours as needed for pain oxyCODONE 5 mg Cap 5 mg = 1 cap(s), Oral, q6hr, PRN for pain, # 12 cap(s), Refills(s) 0, Pharmacy: [facility]/pharmacy #[id number], 167, cm, 05/12/23 9:37:00 EDT, Height/Length Dosing, 79.8, kg, 05/12/23 9:37:00 EDT, Weight Dosing Start Date: 05/14/23 Status: Ordered Start: 05-09-2023 End: 05-12-2023 take 1 tablet by mouth every six hours oxyCODONE 5 mg Tab 5 mg = 1 tab(s), Oral, q6hr, X 3 day(s), # 10 tab(s), Refills(s) 0, Pharmacy: [facility]/pharmacy #[id number], 167, cm, 05/09/23 11:51:00 EDT, Height/Length [...] up to 5 doses. polyethylene glycol 3350 14702 mg powder for oral solution (20 sources) Osmotic Laxative Start: 06-23-2022 Polyethylene Glycol 3350 (Miralax) 17 gram/dose powder Active 17 GM PO Twice daily May 30, 2023 12:00am mix into 4-8 oz. of any hot/cold/room temp. beverage; use immediately Start: 06-23-2022 End: 09-07-2023 polyethylene glycol 3350 (SD RALAX) 17 gram/dose powder Take 17 g by mouth once daily as needed for constipation. 0 06/09/2023 09/07/2023 Active Start: 06-23-2022 End: 06-09-2023 polyethylene glycol 3350 (SD RALAX) 17 gram/dose powder Take 17 g by mouth twice daily. reduced the dose or stop if you get diarrhea and restart after 48 hours to maintain 'at least' once a day bowel movement. Dissolve dose in 4 - 8 ounces of liquid and take as directed. 507 g 1 06/23/2022 06/09/2023 Discontinued Start: 01-30-2022 polyethylene g lycol 3350 (MIRALAX) [...] chloride 4.5 mg/ml injection (1 source) Start: 03-07-19 sodium chloride 0.45 % with KCl 20 [...] Nausea/Vomiting, # 6 EA, Refills(s) 0, Pharmacy: [facility]/pharmacy #[id number], 167, cm, 05/06/23 15:49:00 EDT, [...] TID, # 15 tab(s), Refills(s) 0, Pharmacy: [facility]/pharmacy #[id number], 168, cm, 10/20/22 8:21:00 EDT, Height/Length Dosing, 85.6, kg, 10/20/22 8:21:00 EDT, Weight Dosing Start Date: 10/20/22 Status: Ordered Start: 06-10-2022 take 1 tablet by robinson th every four hours promethazine 12.5 mg oral tablet 12.5 mg = 1 tab(s), Oral, q4hr, # 60 tab(s), Refills(s) 0, Pharmacy: [facility]/pharmacy #[id number], 168, cm, 06/10/22 12:37:00 EDT, Height/Length Dosing, 83.7, kg, 06/10/22 12:37:00 EDT, Weight Dosing Start Date: 06/10/22 Status: Ordered Start: 12-20-2020 take 1 tablet by robinson every six hours as needed for nausea promethazine 25 mg Tab 25 mg = 1 tab(s), Oral, q6hr, PRN as needed for nausea/vomiting, # 12 tab(s), Refills(s) 0, [id number], cm, 12/20/20 9:30:00 EDT, Height/Length Dosing, 90, kg, 12/20/20 9:30:00 EDT, Weight Dosing Start Date: 12/20/20 Status: Ordered Comment on above: Take 1 tablet by robinson every 6 hours as needed. prucalopride 2 [...] 0, Depression Start Date: 03/04/18 Status: Ordered 125 ml sodium chloride 9 mg/ml prefilled syringe (12 sources) Start: 06-30-2023 10 mL, intra-catheter, As needed, line care, After each use (each lumen) using push-pause method., Starting on Wed06/30/23 at 0236, Flush port according to flush policy: to maintain line patency. Start: 06-29-2023 End: 06-29-2023 1,000 mL, intravenous, at 99 9 mL/hr, Administer over 1 Hours, Once, On Wed06/29/23 at 1925, For 1 dose Start: 11-26-2022 End: 11-26-2022 NaCl 0.9% 2,000 [...] Nausea, # 20 tab(s), Refills(s) 0, Pharmacy: [facility]/pharmacy #[id number], 167, cm, 05/12/23 9:37:00 EDT, Height/Length Dosing, 79.8, kg, 05/12/23 9:37:00 EDT, Weight Dosing Start Date: 05/14/23 Status: Ordered Start: 04-02-2023 End: 04-16-2023 sucralfate 1 g/10 mL Oral Nance sp 10 mL 1 gm = 10 mL, Oral, QIDACHS, X 14 day(s), # 560 mL, Refills(s) 0, Pharmacy: [facility]/pharmacy #[id number], 167, cm, 04/02/23 11:01:00 EST, [...] QID, # 280 mL, Refills(s) 0, Pharmacy: [facility]/pharmacy #[id number], 168, cm, 10/19/22 8:44:00 EDT, [...] Daily, # 10 cap(s), Refills(s) 0, Pharmacy: [facility]/pharmacy #[id number], 168, cm, 06/17/22 10:54:00 EDT, Height/Length Dosing, 83.1, kg, 06/17/22 10:54:00 EDT, Weight Dosing Start Date: 06/17/22 Status: Ordered topiramate 100 mg oral tablet (20 sources) Start: 07-16-2023 take 1 tablet by mouth twice daily Topiramate (Topamax) 100 mg tablet Active 100 MG PO Twice daily July 16, 2023 12:00am Start: 06-30-2023 End: 06-30-2023 take 50 mg by mouth twice daily 50 mg, oral, 2 times d aily, First dose on Wed06/30/23 at 0900 Start: 03-05-2023 take 50 mg by mouth twice jerome y 50 mg, oral, 2 times daily, First [...] by mouth 2 times a day. HEADACHES Active take 1 tablet by robinson th twice daily topiramate 25 MG tablet Take 25 mg by mouth 2 times daily. 0 Active topiramate (TOPA MAX) 100 MG tablet Take 50 mg by mouth 2 times daily 0 Active Comment on above: Take 100 mg by mouth twice daily. vitamin b12 0.1 mg oral tablet (1 [...] Nausea/Vomiting, # 12 tab(s), Refills(s) 0, Pharmacy: [facility]/pharmacy #[id number], 167, cm, 05/06/23 15:49:00 EDT, Height/Length Dosing, 82.7, kg, 05/06/23 15:49:00 EDT, Weight Dosing Start Date: 05/06/23 Status: Ordered Completed/Discontinued Medications Medication Drug Class(es) Dates Sig (Normalized) Sig (Original) acetaminophen 500 mg oral tablet (20 sources) Start: 07-06-2023 End: 08-04-2023 take 2 tablets by mouth every eight hours as needed acetaminophen (TYLENOL) 500 mg tablet Take 2 tablets by mouth every 8 hours as needed for pain. 30 tablet 0 07/06/2023 08/04/2023 Discontinued (Duplicate Entry) Start: 06-11-2023 take 325 mg by mouth every four hours as needed for pain acetaminophen 325 mg, Oral, q4hr, PRN as needed for pain, Refills(s) 0 Start Date: 06/11/23 Status: Ordered Start: 03-16-2023 take 1 tablet by robinson th every four hours as needed acetaminophen (Tylenol) tablet 650 mg Start: 03-10-2023 End: 09-07-2023 take 2 tablets by mouth every four hours as needed acetaminophen (TYLENOL) 325 mg tablet Take 2 tablets by mouth every 4 hours as needed for pain. 120 tablet 1 06/09/2023 09/07/2023 Active Start: 03-05-2023 take 1 tablet by [...] needed for pain or fever (specify). acetaminophen 325 mg / HYDROcodone bitartrate 5 mg oral tablet (14 sources) Opioid Agonist Start: 08-06-2023 End: 08-09-2023 take 1 tablet by mouth every six hours as needed for pain HYDROcodone-acetam inophen (NORCO) 5-325 mg per tablet Indications: Chronic abdominal pain Take 1 tablet by mouth every 6 hours as needed for pain for up to 3 days. 10 tablet 0 08/06/2023 08/09/2023 Start: 07-02-2020 hydroCODone-ac etaminophen (NORCO) 5-325 MG [...] 3 April 10, 2020 February 13, 2023 2:59pm Start: 01-30-2020 End: 07-02-2020 take 1 tablet by mouth every four hours as needed hydroCODone-acetaminophen 5-325 MG table t Indications: Complex ovarian cyst , Uterine leiomyoma, unspecified location Take 1 tablet by mouth every 4 hours as needed for up to 4 days. 12 tablet 0 07/02/2020 07/02/2020 Discontinued (Reorder) Adult Multivitamin (Infuvite Adult) 10 mL in [...] Amide Local Anesthetic Start: 08-30-2021 End: 08-30-2021 bupivacaine-EPINEP Hrine PF (MARCAINE-w/EPINEP HRINE) 0.5% -[id number] injection 10 mL calcium chloride 0.001 meq/ml / glucose 50 mg/ml / potassium chloride 0.004 meq/ml / sodium chloride 0.103 meq/ml / sodium lactate 0.028 meq/ml injectable solution (1 source) Start: 03-18-2023 End: 03-19-2023 dextrose 5 % and lactated Ringer's infusion calcium chloride 0.0014 meq/ml / potassium chloride 0.004 meq/ml / sodium chloride 0.103 meq/ml / sodium lactate 0.028 meq/ml injectable solution (1 source) Start: 06-30-2023 End: 06-30-2023 take 100 mL intravenously every hour 100 mL/hr, intravenous, Continuous, Starting on Wed06/30/23 at 1745, For 6 hours, Recovery (only) cefuroxime 500 mg oral tablet (1 source) Cephalosporin Antibacterial Start: 08-06-2023 End: 08-11-2023 take 1 tablet by mouth twice daily, then take 1 tablet by mouth twice daily cefUROXime (CEFTIN) 500 mg tablet Take 1 tablet by mouth two times a day for 5 days. 1 tablet twice a day for 5 days 10 tablet 0 08/06/2023 08/11/2023 chlorhexidine gluconate 1.2 mg/ml mouthwash (1 source) [...] 1 tablet by robinson th once daily. Custom TPN (1 source) End: 03-10-2023 Custom TPN Infuse 1,440 mL into a venous catheter continuously. START AT 5 PM UNTIL 5 AM 0 03/10/2023 Discontinued (Stop Taking at Discharge) 1 ml diphenhydrAMINE hydrochloride 50 mg/ml cartridge [...] Refill(s) 0, Take 1 puff 2x daily., [facility]/pharmacy #[id number], 168, cm, 12/29/22 15:01:00 EST, [...] (OMNIPaque) 350 mg iodine/mL solution 75 mL (2 sources) Start: 06-30-2023 End: 06-30-2023 75 mL, intravenous, Once in imaging, Starting on Wed06/30/23 at 1033, For 1 dose Start: 03-16-2023 End: 03-16-2023 iohexol (OMNIPaque) 350 mg i odine/mL solution 75 mL iohexol (OMNIPAQUE) 350 MG/ML [...] times daily. 0 06/02/2021 Discontinued (Therapy completed) Lactated Ringer IV 1000ml (1 source) Start: 06-14-2023 Lactated Ringer IV 1000ml Lactated Ringer IV 1000ml, See Instructions, 1 EA, 0, RUN at 250ml/hour through PICC line 1- 1000ml bag every other day as needed for dehydration, Supply Start Date: 06/14/23 Status: Ordered lidocaine 0.04 mg/mg medicated patch (2 sources) Antiarrhythmic, Amide Local Anesthetic Start: 07-06-2023 End: 07-13-2023 apply 1 dose transdermal route once daily, then apply 1 dose transdermal route every twelve hours lidocaine (SALONPAS) 4 % patch Apply 1 Patch as directed once daily for 7 days. Remove patch after 12 hours 7 Patch 0 07/06/2023 07/13/2023 magnesium gluconate 500 mg oral tablet (20 [...] kcal/mL liqd TF for PEG-J Rate: 45cc/hr 29972 mL 1 05/26/2023 06/09/2023 Discontinued Start: 05-26-2023 nutritional nance pplements (NUTREN 1.5) 0.07 gram-1.5 kcal/mL liqd TF for PEG-J Rate: 45cc/hr 57077 mL 1 05/26/2023 Active Start: 05-21-2023 End: [...] Start: 10-19-2022 take 1 capsule by mo [facility] once daily omeprazole (PRILOSEC) 20 mg capsule [...] Start: 07-27-2021 take 1 capsule by mo [facility] twice daily before mealtime omeprazole (PRILOSEC) 20 MG delayed release capsule Take 1 capsule by mouth 2 times daily (before meals) 60 capsule 0 07/27/2021 Active Start: 07-21-2021 End: 08-29-2021 take 1 capsule by mouth twice daily omeprazole (PRILOSEC) 40 mg capsule Take 1 capsule by mouth twice daily. 60 capsule 0 08/22/2021 08/29/2021 Discontinued Start: 01-15-2021 take 1 capsule by [facility] twice daily omeprazole (PRILOSEC) 40 mg capsule Take 1 capsule by mouth twice daily. 60 capsule 0 01/15/2021 Active Comment on above: Take 1 capsule by mo [facility] twice daily. Take 1 capsule by [facility] once daily. Take 1 capsule by [facility] as needed. TAKE 1 CAPSULE BY [facility] NEEDED oxygen (O2) therapy (1 source) Start: 03-05-2023 End: 03-05-2023 oxygen (O2) therapy pantoprazole 40 mg injection (20 sources) Proton Pump Inhibitor Start: 06-30-2023 End: 06-30-2023 40 mg, intravenous, Daily, First dose on Wed06/30/23 at 0235, Reconstitute with 10 mL sodium chloride 0.9% for injection. Push over 2 minutes. Reconstitute with 10 mL sodium chloride 0.9% for injection. Push over 2 minutes. Start: 05-31-2023 End: 07-07-2023 take 1 tablet by mouth once daily before mealtime pantoprazole (ProtoNix) 40 mg EC tablet Indications: Nausea and vomiting, unspecified vomiting type Take 1 tablet (40 mg) by mouth once daily in the morning. Take before meals. 30 tablet 06/07/2023 07/07/2023 Active Start: 05-14-2023 take [address] [facility] once daily Pantoprazole [address] Tab 40 mg = 1 tab(s), Oral, Daily, # 30 tab(s), Refills(s) 0, Pharmacy: [facility]/pharmacy #[id number], 167, cm, 05/12/23 9:37:00 EDT, Height/Length Dosing, [...] meq effervescent oral tablet (2 sources) Start: 10-24-19 End: 03-10-19 take 1 tablet by mouth once daily Effer-K 25 mEq effervescent tablet Take 1 tablet (25 mEq) by mouth once daily. 0 10/24/2022 03/10/2023 Discontinued (Stop Taking at Discharge) prochlorperazine 5 mg/ml injectable solution (20 sources) Phenothiazine Start: 06-29-19 End: 06-29-19 10 mg, intravenous, Once, On Wed06/29/23 at 2335, For 1 dose Start: 06-18-2023 take 1 tablet by robinson th every six hours as needed prochlorperazine (COMPAZINE) 10 mg tablet Take 1 tablet by mouth every 6 hours as needed for nausea/vomiting. 15 tablet 0 06/18/2023 Active Start: 05-21-2023 End: 06-05-2023 take 1 tablet by mouth every six hours prochlorperazine (COMPAZINE) 10 mg tablet Take 1 tablet by mouth every 6 hours for 14 days. 56 tablet 0 05/21/2023 06/05/2023 Active Start: 03-16-2023 End: 03-16-2023 prochlorperazine (Compazine) injection 5 mg Start: 03-06-2023 take 1 tablet by robinson th every six hours as needed prochlorperazine (Compazine) tablet 10 mg Start: 10-31-2022 End: 10-31-2022 prochlorperazine (COMPAZINE) injection 10 mg Start: 01-30-2022 take 2 tablets by mo uth every six hours as needed prochlorperazine (COMPAZINE) [...] th every 6 hours for 14 days. promethazine (Phenergan) 6.25 mg in sodium chloride 0.9% 50 mL IV (1 source) Start: 03-05-2023 End: 03-05-2023 promethazine (Phenergan) 6.25 mg in sodium chloride 0.9% 50 mL IV sennosides, jail 8.6 mg oral tablet (10 sources) Start: [...] on above: Take 2 tablets by mo [facility] four times daily as needed. solifenacin succinate 5 mg oral tablet (7 sources) Cholinergic Muscarinic Antagonist Start: 07-06-19 End: 08-04-19 take 1 tablet by mouth once daily solifenacin (VESICARE) 5 mg tablet Take 1 tablet by mouth once daily. 90 tablet 3 07/06/2023 08/04/2023 Discontinued (Discontinued by Patient) thiamine hydrochloride 100 mg/ml injectable solution (1 source) Start: 03-17-19 End: 03-19-19 thiamine (Vitamin B1) injection 100 mg traMADol hydrochloride 50 mg oral tablet (20 sources) Opioid Agonist Start: 06-09-19 End: 07-02-19 take 1 tablet by mouth every four hours as needed 50 mg, oral, Every 4 hours PRN, pain severe (7-10), first line, Starting on Heena 07/01/23 at 1106, If ordered PRN for pain, nurse is permitted to administer this medication for higher pain scores based on patient preference? Yes Start: 11-23-2022 End: 11-26-2022 take 1 tablet by mouth every twelve hours as needed traMADol (ULTRAM) 50 mg tablet Indications: Intractable abdominal pain , Epigastric pain Take 1 tablet by mouth every 12 hours as needed for up to 3 days. 6 tablet 0 11/23/2022 11/26/2022 Active Start: 11-16-2022 take [address] [facility] every eight hours as needed for pain traMADol (ULTRAM) 50 mg tablet Indications: Post-operative pain Take 1 tablet by mouth every 8 hours as needed for pain. 10 tablet 0 11/16/2022 Suspended Start: 11-08-2022 End: 08-04-2023 take 1 tablet by mouth every six hours as needed 50 mg, oral, Every 6 hours PRN, pain severe (7-10), first line, Starting on Wed06/30/23 at 0243, If ordered PRN for pain, nurse is permitted to administer this medication for higher pain scores based on patient preference? Yes Start: 06-26-2022 take 1 tablet by robinson th every twelve hours as needed for pain traMADOL 50 mg Tab 50 mg = 1 tab(s), Oral, q12hr, PRN for pain, # 30 tab(s), Refills(s) 0, Pharmacy: [facility]/pharmacy #[id number], 168, cm, 06/26/22 14:12:00 EDT, [...] for pain for up to 7 days. triamcinolone acetonide 0.001 mg/mg topical ointment (4 [...] 1 tablet by robinson th once daily. Problems Active Problems Problem Classification Problem Date Documented Da te Episodic/Chronic Abdominal pain (20 sources) Lower abdominal pain; Translations: [Right upper quadrant pain] Onset: 0 Resolved: 4 01-31-2020 Episodic Acute and unspecified renal failure (3 sources) [id number] renal failure; Translations: [Acute kidney failure, unspecified] Onset: 4 06-29-2023 Episodic Anxiety disorders (20 sources) Posttraumatic stress disorder; Translations: [Reaction to severe stress, unspecified] Onset: 0 11-21-2019 Chronic Anxiety disorders (20 sources) Panic disorder without agoraphobia; Translations: [Panic disorder [episodic paroxysmal anxiety]] Onset: 0 Resolved: 2 04-08-2020 Chronic Aspiration pneumonitis; food/vomitus (6 sources) Pneumonitis due to inhalation of vomitus; Translations: [Pneumonitis due to inhalation of food and vomit] Onset: 4 08-04-2023 Episodic Asthma (20 sources) Asthma; Translations: [Unspecified asthma, uncomplicated] Onset: 1 Resolved: 2 08-21-2020 Chronic Benign neoplasm of uterus (1 source) Uterine leiomyoma; Translations: [Leiomyoma of uterus, unspecified] Episodic Biliary tract disease (20 sources) Dysfunction of sphincter of Oddi; Translations: [Spasm of sphincter of Oddi] Onset: 3 Resolved: 3 11-06-2022 Chronic Biliary tract disease (14 sources) Gallstone 07-29-2022 Episodic Chronic obstructive pulmonary disease and bronchiectasis (10 sources) Bronchitis 12-29-2022 Episodic Complication of device; implant or graft (1 source) Other complications of enterostomy; Translations: [Jejunostomy tube site pain (HCC)] Onset: 4 Chronic Complications of surgical procedures or medical care (2 sources) Post-surgical malabsorption; Translations: [Postsurgical malabsorption, not elsewhere classified] Chronic Conditions associated with dizziness or vertigo (20 sources) Vertigo; Translations: [Dizziness and giddiness] Onset: 0 10-06-2019 Episodic Congestive heart failure; nonhypertensive (3 sources) Heart failure; Translations: [Heart failure, unspecified] Onset: 4 06-29-2023 Chronic Deficiency and other anemia (20 sources) Anemia; Translations: [Anemia, unspecified] 10-06-2019 Episodic Diseases of white blood cells (1 source) Leukopenia; Translations: [Decreased white blood cell count, unspecified] Onset: 4 Chronic Disorders of teeth and jaw (1 source) Infection of tooth; Translations: [Periapical abscess without sinus] Episodic Esophageal disorders (20 sources) Gastroesophageal reflux disease; [...] 03-13-2021 Chronic Genitourinary symptoms and ill-defined conditions (15 sources) Mixed incontinence; Translations: [Incontinence] Onset: 3 Chronic Genitourinary symptoms and ill-defined conditions (5 sources) Increased frequency of urination; Translations: [Frequency of micturition] Onset: 4 07-06-2023 Episodic Headache; including migraine (8 sources) Migraine with aura; Translations: [Migraine with aura, not intractable, without status migrainosus] Onset: 4 Chronic Headache; including migraine (7 sources) Headache; Translations: [Headache] 01-27-2023 Episodic Inflammation; infection of eye (except that caused by tuberculosis or sexually transmitteddisease) (1 source) Vernal conjunctivitis of bilateral eyes; Translations: [Vernal conjunctivitis] Chronic Intestinal obstruction without hernia (17 sources) Small bowel obstruction; Translations: [Unspecified intestinal obstruction, unspecified as to partial versus complete obstruction] Onset: 4 Resolved: 4 07-16-2023 Episodic Joint disorders and dislocations; trauma-related (1 source) Articular cartilage disorder of knee; Translations: [Unspecified internal derangement of right knee] Chronic Lymphadenitis (2 sources) Lymphadenopathy; Translations: [Enlarged lymph nodes, unspecified] Episodic Malaise and fatigue (7 sources) Fatigue; Translations: [Chronic fatigue, unspecified] Chronic Miscellaneous mental health disorders (15 sources) Primary insomnia; Translations: [Primary insomnia] Onset: 1 Resolved: 1 Chronic Mood disorders (20 sources) Depressive disorder; Translations: [Depression, controlled] Onset: 0 Resolved: 4 01-03-2020 Chronic Nausea and vomiting (20 sources) Nausea; Translations: [Nausea] Onset: 0 Resolved: 4 09-25-2019 Episodic Nonspecific chest pain (2 sources) Chest pain; Translations: [Chest pain, unspecified] Onset: 3 Episodic Nutritional deficiencies (20 sources) Deficiency of macronutrients; Translations: [Mild protein-calorie malnutrition] Onset: 1 04-08-2020 Chronic Nutritional deficiencies (1 source) Dietary zinc deficiency; Translations: [Dietary zinc deficiency] 04-07-2023 Episodic Osteoarthritis (20 sources) Degenerative joint disease involving multiple joints; Translations: [Polyosteoarthritis, unspecified] Onset: 4 Chronic Other aftercare (1 source) Other long-term (current) 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; Translations: [[employer] CURRENT DRUG THERAPY] Onset: 3 Episodic Other [...] syndrome; 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] Onset: 3 11-25-2022 Chronic Other circulatory disease (7 sources) Celiac artery compression syndrome; 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)] Onset: 3 Chronic Other circulatory disease (2 sources) Idiopathic hypotension; Translations: [Idiopathic hypotension] Onset: 4 08-06-2023 Episodic Other connective tissue disease (6 sources) Neuropathy; Translations: [Neuralgia and neuritis, unspecified] 01-08-2023 Episodic Other diseases of kidney and ureters (1 source) Acquired renal cyst without neoplastic change; Translations: [Cyst of kidney, acquired] Onset: 3 Episodic Other diseases of kidney and ureters (20 sources) Cyst of kidney 07-29-2022 Episodic Other disorders of stomach and duodenum (7 sources) Gastroparesis syndrome 03-24-2023 Episodic Other endocrine disorders (20 sources) Polycystic ovary syndrome; Translations: [Polycystic ovarian syndrome] 01-31-2020 Chronic Other endocrine disorders (8 sources) Polycystic ovaries; Translations: [Polycystic ovarian syndrome] Chronic Other endocrine disorders (2 sources) Reactive hypoglycemia; Translations: [Other hypoglycemia] Chronic Other endocrine disorders (1 source) Other hypoglycemia Onset: 2 Resolved: 2 Chronic Other endocrine disorders (1 source) Polycystic ovarian syndrome; Translations: [POLYCYSTIC OVARIAN SYNDROME] Onset: 3 Chronic Other endocrine disorders (1 source) Hypoglycemia, unspecified; Translations: [Hypoglycemia] Onset: 4 Chronic Other eye disorders (1 source) Pain in eye; Translations: [Ocular pain, unspecified eye] Episodic Other gastrointestinal disorders (1 source) Abnormal intestinal absorption; Translations: [Intestinal malabsorption, unspecified] 09-18-2022 Chronic Other gastrointestinal disorders (18 sources) Jejunostomy present; Translations: [Other artificial openings of gastrointestinal tract status] Onset: 4 06-07-2023 Chronic Other gastrointestinal disorders (19 sources) Gastrostomy present; Translations: [Gastrostomy status] Onset: 4 06-07-2023 Chronic Other gastrointestinal disorders (2 sources) Other artificial openings of gastrointestinal tract status; Translations: [Jejunostomy tube present (HCC)] Onset: 4 Chronic Other gastrointestinal disorders (1 source) Intestinal malabsorption, unspecified; Translations: [Impaired intestinal absorption] Onset: 3 Chronic Other gastrointestinal disorders (3 sources) Esophageal dysphagia; Translations: [Other dysphagia] Episodic Other gastrointestinal disorders (20 sources) History of bypass of stomach; Translations: [Bariatric surgery status] Onset: 3 Resolved: 4 Episodic Other gastrointestinal disorders (12 sources) Bariatric surgery status; Translations: [Bariatric surgery status] Onset: 3 07-17-2023 Episodic Other gastrointestinal disorders (6 sources) Diarrhea, unspecified; Translations: [DIARRHEA UNSPECIFIED] Onset: 3 Episodic Other gastrointestinal disorders (20 sources) Constipation; Translations: [Constipation, unspecified] Onset: 3 Episodic Other gastrointestinal disorders (1 source) Diarrhea; Translations: [Diarrhea, unspecified] Onset: 3 Episodic Other liver diseases (1 source) Enzyme level - finding; Translations: [Abnormal levels of other serum enzymes] Onset: 3 Episodic Other lower respiratory disease (1 source) Other nonspecific abnormal finding of lung field; Translations: [Ground glass opacity present on imaging of lung] Onset: 4 Episodic Other nervous system disorders (1 source) Chronic pain syndrome; Translations: [Chronic pain syndrome] 01-11-2023 Chronic Other nervous system disorders (2 sources) Chronic pain; Translations: [Other chronic pain] Onset: 4 Chronic Other nervous system disorders (2 sources) Other chronic pain; Translations: [Chronic abdominal pain] Onset: 4 Chronic Other nervous system disorders (4 sources) [...] Chronic Other nutritional; endocrine; and metabolic disorders (18 sources) Body mass index 30+ - obesity 05-05-2022 Chronic Other nutritional; endocrine; and metabolic disorders (18 sources) Metabolic syndrome X 04-22-2022 Chronic Other nutritional; endocrine; and metabolic disorders (1 source) Metabolic syndrome; Translations: [METABOLIC SYNDROME] Onset: 3 Chronic Other nutritional; endocrine; and metabolic disorders (1 source) Hypomagnesemia; Translations: [HYPOMAGNESEMIA] Onset: 3 Chronic Other nutritional; endocrine; and metabolic disorders (2 sources) Disorder of hyperalimentation; Translations: [Other specified hyperalimentation] Onset: 4 07-01-2023 Chronic Other nutritional; endocrine; and metabolic disorders (1 source) Other specified hyperalimentation; Translations: [Other specified hyperalimentation] Onset: 4 Chronic Other nutritional; endocrine; and metabolic disorders [...] nutritional; endocrine; and metabolic disorders (20 sources) Dietary intake finding; Translations: [Other symptoms and signs concerning food and fluid intake] Onset: 4 05-25-2023 Episodic Other skin disorders (4 sources) Hirsutism; Translations: [Hirsutism] Episodic Other upper respiratory disease (18 sources) Allergic rhinitis 04-22-2022 Chronic Other upper respiratory infections (5 sources) Other chronic sinusitis; Translations: [Chronic sinusitis, unspecified] Onset: 2 Chronic Otitis media and related conditions (9 sources) Otitis media of left ear 02-03-2023 Episodic Pneumonia (except that caused by tuberculosis or sexually transmitted disease) (4 sources) Pneumonia, unspecified organism; Translations: [Community acquired pneumonia] Onset: 2 Resolved: 2 Episodic Residual codes; unclassified (20 sources) Obstructive sleep apnea syndrome; Translations: [Obstructive sleep apnea (adult) (pediatric)] Onset: 4 10-06-2019 Chronic Residual codes; unclassified (1 source) History of syncope; Translations: [Personal history of other specified conditions] Episodic Residual codes; unclassified (1 source) Edema of face ; Translations: [Localized edema] Episodic Residual codes; unclassified (1 source) History of partial gastrectomy; Translations: [Acquired absence of stomach [part of]] 07-19-2023 Episodic Residual codes; unclassified (1 source) History of placement of gastrostomy tube 06-02-2023 Episodic Sprains and strains (12 sources) Acetabular labrum tear; Translations: [Other sprain of right hip, initial encounter] Onset: 2 Episodic Substance-related disorders (1 source) Cannabis misuse; Translations: [Cannabis use, unspecified, uncomplicated] Onset: 4 Episodic Superficial injury; contusion (1 source) Contusion of right thumb; Translations: [Contusion of right thumb without damage to nail, initial encounter] Episodic Syncope (8 sources) Syncope and collapse; Translations: [Syncope and collapse] Onset: 3 Episodic Thyroid disorders (20 sources) Hypothyroidism; Translations: [Hypothyroidism, unspecified] Onset: 1 Resolved: 1 04-08-2020 Chronic Unclassified (1 source) NO SHOW Unclassified (2 sources) refferal Onset: 3 Unclassified (1 source) Feeding difficulties; Translations: [Feeding difficulties] Onset: 3 Unclassified (1 source) Dry cough; Translations: [Dry cough] Onset: 4 Past or Other Problems Problem Classification Problem [...] Kidney stone; Translations: [Calculus of kidney] Onset: 06-24-2022 06-24-2022 Episodic Deficiency and other anemia (9 sources) Iron deficiency anemia; Translations: [Iron deficiency anemia, unspecified] Onset: 11-01-2021 08-07-2023 Episodic Deficiency and other anemia (1 source) [...] SCREEN INFECTIONS SEXL TRANSMS] Onset: 07-30-2021 Episodic Malaise and fatigue (20 sources) Malaise and fatigue; Translations: [Other malaise] Onset: 10-06-2019 10-06-2019 Episodic Other connective tissue disease (1 source) Myalgia, unspecified site; Translations: [MYALGIA UNSPECIFIED SITE] Onset: 02-20-2022 Episodic Other female genital disorders (1 source) Other specified noninflammatory disorders of vagina; Translations: [OTH SPEC NONINFLAMMATORY D/O VAGINA] Onset: 07-31-2021 Episodic Other female genital disorders (20 sources) History of gynecological disorder; Translations: [Personal history of other diseases of the female genital tract] Onset: 06-24-2022 Resolved: 08-04-2023 06-24-2022 Episodic Other gastrointestinal disorders (20 sources) [...] status] Onset: 10-26-2022 Episodic Other gastrointestinal disorders (20 sources) H/O: GIT by-pass; Translations: [Bariatric surgery status] Onset: 06-24-2022 06-24-2022 Episodic Other lower respiratory disease (1 source) Shortness of breath Onset: 03-31-2021 Resolved: 03-31-2021 Episodic Other nervous system disorders (1 source) Tremor, unspecified Onset: 08-17-2021 Resolved: 08-17-2021 Episodic Other nervous system disorders (20 sources) H/O: respiratory disease; Translations: [Personal history of other diseases of the nervous system and sense organs] Onset: 06-24-2022 Resolved: 08-04-2023 06-24-2022 Episodic Other nervous system disorders (1 source) Other acute postprocedural pain; Translations: [Post-op pain] Onset: 11-11-2022 Episodic Other nutritional; endocrine; and metabolic disorders (20 sources) Obese class II; Translations: [Obesity, unspecified] [...] and other nonspecific skin eruption] Onset: 07-22-2022 Resolved: 08-04-2023 Episodic Ovarian cyst (5 sources) Complex ovarian cyst; Translations: [Other ovarian cyst, unspecified side] Onset: 03-02-2022 Episodic Residual codes; unclassified (1 source) Other specified postprocedural states; Translations: [OTH SPECIFIED POSTPROCEDURAL STATES] Onset: 07-15-2021 Episodic Residual codes; unclassified (2 sources) Acquired absence of other specified parts of digestive tract; Translations: [History of cholecystectomy] Onset: 10-25-2022 Episodic Spondylosis; intervertebral disc disorders; other back problems (20 sources) Chronic low back pain; Translations: [Chronic bilateral low back pain without sciatica] Onset: 10-06-2019 Resolved: 08-07-2023 10-06-2019 Episodic Unclassified (7 sources) Onset: 01-14-2023 Resolved: 06-22-2023 01-14-2023 Results Test Name Value Interpretation Reference Range Facil ity Alanine aminotransferase [En zymatic activity/volume] in Serum or PlasmaOrdered By: Shaan Sabillon on 08-14-2023 ALT [Catalytic activity/Vol] 21 U/L 7-52 [facility] Albumin [Mass/volume] in Ser um or Plasma by Bromocresol green (BCG) dye binding methoOrdered By: Shaan Sabillon on 08-14-2023 Albumin BCG dye [Mass/Vol] 4.2 g/dL 3.5-5.7 [facility] Alkaline phosphatase [Enzyma tic activity/volume] in Serum or PlasmaOrdered By: Shaan Sabillon on 08-14-2023 ALP [Catalytic activity/Vol] 59 U/L 34-104 [facility] Aspartate aminotransferase [ Enzymatic activity/volume] in Serum or PlasmaOrdered By: Shaan Sabillon on 08-14-2023 AST [Catalytic activity/Vol] 32 U/L 13-39 [facility] Basophils Auto (Bld) [#/Vol] Ordered By: Shaan Sabillon on 08-14-2023 Basophils (Bld) [#/Vol] 0.0 10*3/uL 0.0-0.2 [facility] Basophils/100 WBC Auto (Bld) Ordered By: Shaan Sabillon on 08-14-2023 Basophils/100 WBC (Bld) 0.6 % . [facility] Bilirubin Test strip Ql (U)O rdered By: Shaan Sabillon on 08-14-2023 Bilirubin Ql (U) Negative Negative [facility] Bilirubin.direct [Mass/volum e] in Serum or PlasmaOrdered By: Shaan Sabillon on 08-14-2023 Bilirubin.direct [Mass/Vol] 0.10 mg/dL 0.03-0.18 [facility] Bilirubin.total [Mass/volume ] in Serum or PlasmaOrdered By: Shaan Sabillon on 08-14-2023 Bilirubin [Mass/Vol] 0.3 mg/dL 0.3-1.0 [facility] Calcium [Mass/volume] in Ser um or PlasmaOrdered By: Shaan Sabillon on 08-14-2023 Calcium [Mass/Vol] 8.7 mg/dL 8.6-10.3 [facility] Carbon dioxide, total [Moles /volume] in Serum or PlasmaOrdered By: Shaan Sabillon on 08-14-2023 CO2 [Moles/Vol] 21.8 mmol/L 21.0-31.0 [facility] Chloride [Moles/volume] in S elder or PlasmaOrdered By: Shaan Sabillon on 08-14-2023 Chloride [Moles/Vol] 110 mmol/L High 98-107 [facility] Color Auto (U)Ordered By: Amari Sabillon on 08-14-2023 Color (U) Light-yellow Yellow [facility] Creatinine [Mass/volume] in Serum or PlasmaOrdered By: Shaan Sabillon on 08-14-2023 Creatinine [Mass/Vol] 0.72 mg/dL 0.60-1.20 [facility] Eosinophils Auto (Bld) [#/Vo l]Ordered By: Shaan Sabillon on 08-14-2023 Eosinophils (Bld) [#/Vol] 0.0 10*3/uL 0.0-0.45 [facility] Eosinophils/100 WBC Auto (Bl d)Ordered By: Shaan Sabillon on 08-14-2023 Eosinophils/100 WBC (Bld) 0.7 % . [facility] Erythrocyte distribution wid th Auto (RBC) [Ratio]Ordered By: Shaan Sabillon on 08-14-2023 Erythrocyte distribution width (RBC) [Ratio] 14.0 % 11.9-15.3 [facility] Globulin Calc (S) [Mass/Vol] Ordered By: Shaan Sabillon on 08-14-2023 Globulin (S) [Mass/Vol] 2.7 g/dL [facility] Glucose [Mass/volume] in Ser um or PlasmaOrdered By: Shaan Sabillon on 08-14-2023 Glucose [Mass/Vol] 82 mg/dL 70-100 [facility] Comment on above: ADA recommended refe rence rangeRandom Glucose Reference Range is dependent on time and content of last meal. Glucose of more than 200 mg/dL in a nonstressed, ambulatory subject supports the diagnosis of Diabetes Mellitus. Glucose [Mass/volume] in Uri ne by Test stripOrdered By: Shaan Sabillon on 08-14-2023 Glucose Test strip (U) [Mass/Vol] Normal mg/dL Normal [facility] Hematocrit Auto (Bld) [Volum e fraction]Ordered By: Shaan Sabillon on 08-14-2023 Hematocrit (Bld) [Volume fraction] 34.7 % 34.0-46.4 [facility] Hemoglobin Test strip Ql (U) Ordered By: Shaan Sabillon on 08-14-2023 Hemoglobin Ql (U) Negative Negative [facility] Hemoglobin [Mass/volume] in BloodOrdered By: Shaan Sabillon on 08-14-2023 Hemoglobin (Bld) [Mass/Vol] 11.6 g/dL Low 11.8-15.4 [facility] Ketones Test strip Ql (U)Ord ered By: Shaan Sabillon on 08-14-2023 Ketones Ql (U) Negative Negative [facility] Lactate [Moles/volume] in Se rum or PlasmaOrdered By: Shaan Sabillon on 08-14-2023 Lactate [Moles/Vol] 0.6 mmol/L 0.5-2.2 [facility] Leukocyte esterase [Presence ] in Urine by Test stripOrdered By: Shaan Sabillon on 08-14-2023 Leukocyte esterase Test strip Ql (U) Negative Negative [facility] Leukocytes [#/volume] correc darvin for nucleated erythrocytes in Blood by Automated counOrdered By: Shaan Sabillon on 08-14-2023 WBC corrected for nucl RBC Auto (Bld) [#/Vol] 6.6 10*3/uL 3.8-11.6 [facility] Lipase [Enzymatic activity/v olume] in Serum or PlasmaOrdered By: Shaan Sabillon on 08-14-2023 Lipase [Catalytic activity/Vol] 67.0 U/L 11.0-82.0 [facility] Lymphocytes Auto (Bld) [#/Vo l]Ordered By: Shaan Sabillon on 08-14-2023 Lymphocytes (Bld) [#/Vol] 2.5 10*3/uL 1.00-4.8 [facility] Lymphocytes/100 WBC Auto (Bl d)Ordered By: Shaan Sabillon on 08-14-2023 Lymphocytes/100 WBC (Bld) 37.3 % . [facility] MCH Auto (RBC) [Entitic mass ]Ordered By: Shaan Sabillon on 08-14-2023 MCH (RBC) [Entitic mass] 29.0 pg 24.7-34.3 [facility] MCHC Auto (RBC) [Mass/Vol]Or dered By: Shaan Sabillon on 08-14-2023 MCHC (RBC) [Mass/Vol] 33.4 g/dL 32.0-35.0 [facility] MCV Auto (RBC) [Entitic vol] Ordered By: Shaan Sabillon on 08-14-2023 MCV (RBC) [Entitic vol] 87.0 fL 80-100 [facility] Monocyte distribution width [Entitic volume] in Blood by AutomatedOrdered By: Shaan Sabillon on 08-14-2023 Monocyte distribution width Auto (Bld) [Entitic vol] 16.29 % 0.00-20.00 [facility] Monocytes Auto (Bld) [#/Vol] Ordered By: Shaan Sabillon on 08-14-2023 Monocytes (Bld) [#/Vol] 0.5 10*3/uL 0.0-0.8 [facility] Monocytes/100 WBC Auto (Bld) Ordered By: Shaan Sabillon on 08-14-2023 Monocytes/100 WBC (Bld) 7.0 % . [facility] Neutrophils Auto (Bld) [#/Vo l]Ordered By: Shaan Sabillon on 08-14-2023 Neutrophils (Bld) [#/Vol] 3.6 10*3/uL 1.8-7.7 [facility] Neutrophils/100 WBC Auto (Bl d)Ordered By: Shaan Sabillon on 08-14-2023 Neutrophils/100 WBC (Bld) 54.4 % . [facility] Nitrite Test strip Ql (U)Ord ered By: Shaan Sabillon on 08-14-2023 Nitrite Ql (U) Negative Negative [facility] No Panel InformationOrdered By: Shaan Sabillon on 08-14-2023 Estimated GFR (CKD-EPI) > 60.0 mL/Min [facility] Creatinine Clearance (Chem 116.71 [facility] Nucleated erythrocytes [Pres ence] in Blood by Automated countOrdered By: Shaan Sabillon on 08-14-2023 Nucleated RBC Auto Ql (Bld) 0.0 /100{WBC} 0-0.5 [facility] Platelet mean volume Auto (B ld) [Entitic vol]Ordered By: Shaan Sabillon on 08-14-2023 Platelet mean volume (Bld) [Entitic vol] 9.0 fL 6.3-10.7 [facility] Platelets Auto (Bld) [#/Vol] Ordered By: Shaan Sabillon on 08-14-2023 Platelets (Bld) [#/Vol] 281 10*3/uL 150-450 [facility] Potassium [Moles/volume] in Serum or PlasmaOrdered By: Shaan Sabillon on 08-14-2023 Potassium [Moles/Vol] 3.2 mmol/L Low 3.5-5.1 [facility] Protein Test strip (U) [Mass /Vol]Ordered By: Shaan Sabillon on 08-14-2023 Protein (U) [Mass/Vol] Negative Negative [facility] Protein [Mass/volume] in Ser um or PlasmaOrdered By: Shaan Sabillon on 08-14-2023 Protein [Mass/Vol] 6.9 g/dL 6.4-8.9 [facility] RBC Auto (Bld) [#/Vol]Ordere d By: Shaan Sabillon on 08-14-2023 RBC (Bld) [#/Vol] 3.99 10*6/uL 3.60-5.00 [facility] Serum or plasma albumin/glob ulin mass ratioOrdered By: Shaan Sabillon on 08-14-2023 Albumin/Globulin [Mass ratio] 1.6 {ratio} [facility] Serum or plasma anion gap de terminationOrdered By: Shaan Sabillon on 08-14-2023 Anion gap [Moles/Vol] 10.4 mmol/L 6.0-15.0 [facility] Serum or plasma non-glucuron idated bilirubin measurement (mass/volume)Ordered By: Shaan Sabillon on 08-14-2023 Bilirubin.indirect [Mass/Vol] 0.2 mg/dL [facility] Sodium [Moles/volume] in Ser um or PlasmaOrdered By: Shaan Sabillon on 08-14-2023 Sodium [Moles/Vol] 139 mmol/L 136-145 [facility] Specific gravity Test strip (U) [Rel density]Ordered By: Shaan Sabillon on 08-14-2023 Specific gravity (U) [Rel density] 1.026 1.001-1.030 [facility] Urea nitrogen [Mass/volume] in Serum or PlasmaOrdered By: Shaan Sabillon on 08-14-2023 Urea nitrogen [Mass/Vol] 8 mg/dL 7-25 [facility] Urine appearanceOrdered By: Shaan Sabillon on 08-14-2023 Appearance (U) Clear Clear [facility] Urobilinogen Test strip (U) [Mass/Vol]Ordered By: Shaan Sabillon on 08-14-2023 Urobilinogen (U) [Mass/Vol] Normal mg/dL Normal [facility] WBC Auto (Bld) [#/Vol]Ordere d By: Shaan Sabillon on 08-14-2023 WBC (Bld) [#/Vol] 6.6 10*3/uL 3.8-11.6 [facility] pH Test strip (U)Ordered By: Shaan Sabillon on 08-14-2023 pH (U) 7.0 [pH] 5.0-9.0 [facility] CNPNon 08-12-2023 CNPN Normal [facility] CNOVon 08-09-2023 CNOV Normal [facility] CASE MGT INIT ASSESon 2023 CASE MGT INIT ASSES Normal [facility] CBC panel Auto (Bld)on 08-07 Erythrocyte distribution width (RBC) [Ratio] 13.2 % Normal 11.5-15.0 [facility] Comment on above: Order Comment: Speci men Type: BLOOD SPECIMENOrdering Facility: [facility] Address: [address] [place] [address] Performed By: #### 5 8410-2 ####[facility] [id number] [place] [address] [place] Hematocrit (Bld) [Volume fraction] 31.1 % Low 36.0-46.0 [facility] Comment on above: Order Comment: Speci men Type: BLOOD SPECIMENOrdering Facility: [facility] Address: [address] [place] [address] Performed By: #### 5 8410-2 ####[facility] [id number] [place] [address] [place] Hemoglobin (Bld) [Mass/Vol] 9.9 g/dL Low 11.5-15.5 [facility] Comment on above: Order Comment: Speci men Type: BLOOD SPECIMENOrdering Facility: [facility] Address: [address] [place] [address] Performed By: #### 5 8410-2 ####[facility] [id number] [place] [address] [place] MCH (RBC) [Entitic mass] 29.4 pg Normal 26.0-34.0 [facility] Comment on above: Order Comment: Speci men Type: BLOOD SPECIMENOrdering Facility: [facility] Address: [address] [place] [address] Performed By: #### 5 8410-2 ####[facility] [id number] [place] [address] [place] MCHC (RBC) [Mass/Vol] 31.8 g/dL Normal 30.5-36.0 [facility] Comment on above: Order Comment: Speci men Type: BLOOD SPECIMENOrdering Facility: [facility] Address: [address] [place] [address] Performed By: #### 5 8410-2 ####[facility] [id number] [place] [address] [place] MCV (RBC) [Entitic vol] 92.3 fL Normal 80.0-100.0 [facility] Comment on above: Order Comment: Speci men Type: BLOOD SPECIMENOrdering Facility: [facility] Address: [address] [place] [address] Performed By: #### 5 8410-2 ####[facility] [id number] [place] [address] [place] Nucleated RBC (Bld) [#/Vol] 10*3/uL Normal <0.01 [facility] Comment on above: Order Comment: Speci men Type: BLOOD SPECIMENOrdering Facility: [facility] Address: [address] [place] [address] Performed By: #### 5 8410-2 ####[facility] [id number] [place] [address] [place] Platelet mean volume (Bld) [Entitic vol] 10.3 fL Normal 9.0-12.7 [facility] Comment on above: Order Comment: Speci men Type: BLOOD SPECIMENOrdering Facility: [facility] Address: [address] [place] [address] Performed By: #### 5 8410-2 ####[facility] [id number] [place] [address] [place] Platelets (Bld) [#/Vol] 267 10*3/uL Normal 150-400 [facility] Comment on above: Order Comment: Speci men Type: BLOOD SPECIMENOrdering Facility: [facility] Address: [address] [place] [address] Performed By: #### 5 8410-2 ####[facility] [id number] [place] [address] [place] RBC (Bld) [#/Vol] 3.37 10*6/uL Low 3.90-5.20 [facility] Comment on above: Order Comment: Speci men Type: BLOOD SPECIMENOrdering Facility: [facility] Address: [address] [place] [address] Performed By: #### 5 8410-2 ####[facility] [id number] [place] [address] [place] WBC (Bld) [#/Vol] 3.17 10*3/uL Low 3.70-11.00 [facility] Comment on above: Order Comment: Speci men Type: BLOOD SPECIMENOrdering Facility: [facility] Address: [address] [place] [address] Performed By: #### 5 8410-2 ####[facility] [id number] [place] [address] [place] CNDSon 08-08-2023 CNDS Normal [facility] CRP SerPl-mCncon 08-08-2023 CRP [Mass/Vol] mg/L Normal <0.9 [facility] Comment on above: Order Comment: Speci men Type: BLOOD SPECIMENOrdering Facility: [facility] Address: [address] [place] [address] Performed By: #### 1 988-5, 51126-5, 68969-7 ####[facility] [id number] [address] [address] [place] Magnesium SerPl-mCncon 08-07 Magnesium [Mass/Vol] 2.0 mg/dL Normal 1.7-2.3 [facility] Comment on above: Order Comment: Speci men Type: BLOOD SPECIMENOrdering Facility: [facility] Address: [address] [place], [place] [id number] Performed By: #### 1 988-5, , 02619-0 ####[facility] [id number] [address] [address] [place] NUTRITIONon 08-08-2023 NUTRITION Normal [facility] Renal function 2000 panelon 08-08-2023 Albumin [Mass/Vol] 3.4 g/dL Low 3.9-4.9 [facility] Comment on above: Order Comment: Speci men Type: BLOOD SPECIMENOrdering Facility: [facility] Address: [address] [place] [address] Performed By: #### 1 988-5, , 11983-4 ####[facility] [id number] [place] [id number] [place] Anion gap [Moles/Vol] 9 mmol/L Normal 8-15 [facility] Comment on above: Order Comment: Speci men Type: BLOOD SPECIMENOrdering Facility: [facility] Address: [address] [place], [place] [id number] Performed By: #### 1 988-5, , 65367-7 ####[facility] [id number] [place] [id number] [place] Calcium [Mass/Vol] 8.7 mg/dL Normal 8.5-10.2 [facility] Comment on above: Order Comment: Speci men Type: BLOOD SPECIMENOrdering Facility: [facility] Address: [address] [place] [address] Performed By: #### 1 988-5, , ####[facility] [id number] [address] [address] [place] Chloride [Moles/Vol] 108 mmol/L High 98-107 [facility] Comment on above: Order Comment: Speci men Type: BLOOD SPECIMENOrdering Facility: [facility] Address: [address] [place] [address] Performed By: #### 1 988-5, , ####[facility] [id number] [place] [address] [place] CO2 [Moles/Vol] 22 mmol/L Normal 22-30 [facility] Comment on above: Order Comment: Speci men Type: BLOOD SPECIMENOrdering Facility: [facility] Address: [address] [place] [address] Performed By: #### 1 988-5, , ####[facility] [id number] [place] [id number] [place] Creatinine [Mass/Vol] 0.69 mg/dL Normal 0.58-0.96 [facility] Comment on above: Order Comment: Speci men Type: BLOOD SPECIMENOrdering Facility: [facility] Address: [address] [place] [address] Performed By: #### 1 988-5, , ####[facility] [id number] [place] [id number] [place] Creatinine and Glomerular filtration rate.predicted panel (S/P/Bld) 117 mL/min/1.73m??? Normal >=60 [facility] Comment on above: Order Comment: Speci men Type: BLOOD SPECIMENOrdering Facility: [facility] Address: [address] [place] [address] Result Comment: Jessica mated Glomerular Filtration Rate [...] actual GFR. Performed By: #### 1 988-5, 99511-7, 83604-7 ####[facility] LABCLIA [id number] [address] [address] [place] Glucose [Mass/Vol] 89 mg/dL Normal 74-99 [facility] Comment on above: Order Comment: Speci men Type: BLOOD SPECIMENOrdering Facility: [facility] Address: [address] [place] [address] Result Comment: The [place] Diabetes Association (ADA) provides guidance for cutoff [...] Standards of Medical Care in Diabetes 2016, [place] Diabetes Association. Diabetes Care. 2016.39(Suppl 1). Performed By: #### 1 988-5, , ####[facility] LABCLIA [id number] [address] [address] [place] Phosphate [Mass/Vol] 3.9 mg/dL Normal 2.7-4.8 [facility] Comment on above: Order Comment: Lyssai men Type: BLOOD SPECIMENOrdering Facility: [facility] Address: [address] [place] [address] Performed By: #### 1 988-5, 18331-0, 48779-7 ####[facility] LABCLIA [id number] [place] [address] [place] Potassium [Moles/Vol] 4.1 mmol/L Normal 3.7-5.1 [facility] Comment on above: Order Comment: Speci men Type: BLOOD SPECIMENOrdering Facility: [facility] Address: [address] [place] [address] Performed By: #### 1 988-5, 20593-7, 12598-0 ####[facility] LABCLIA [id number] [place] [address] [place] Sodium [Moles/Vol] 139 mmol/L Normal 136-144 [facility] Comment on above: Order Comment: Speci men Type: BLOOD SPECIMENOrdering Facility: [facility] Address: [address] [place] [address] Performed By: #### 1 988-5, 07963-6, 98703-2 ####[facility] LABCLIA [id number] [place] [address] [place] Urea nitrogen [Mass/Vol] 7 mg/dL Normal 7-21 [facility] Comment on above: Order Comment: Speci men Type: BLOOD SPECIMENOrdering Facility: [facility] Address: [address] [place] [address] Performed By: #### 1 988-5, 54136-0, 55265-6 ####[facility] LABIA [id number] [place] [address] [place] CBC W Auto Differential pane l (Bld)on 08-07-2023 Basophils (Bld) [#/Vol] 0.04 10*3/uL Normal <0.11 [facility] Comment on above: Order Comment: Speci men Type: BLOOD SPECIMENOrdering Facility: [facility] Address: [address] [place] [address] Performed By: #### 1 4196-0, 53036-3 ####[facility] LABCLIA [id number] [address] [id number] [address] [place] Basophils/100 WBC (Bld) 0.7 % Normal [facility] Comment on above: Order Comment: Speci men Type: BLOOD SPECIMENOrdering Facility: [facility] Address: [address] [place] [address] Performed By: #### 1 4196-0, 59823-4 ####[facility] LABCLIA [id number] [place] [address] [place] Differential cell count method Nom (Bld) Auto Normal [facility] Comment on above: Order Comment: Speci men Type: BLOOD SPECIMENOrdering Facility: [facility] Address: [address] [place] [address] Performed By: #### 1 4196-0, 87087-8 ####[facility] LABCLIA [id number] [place] [address] [place] Eosinophils (Bld) [#/Vol] 0.10 10*3/uL Normal <0.46 [facility] Comment on above: Order Comment: Speci men Type: BLOOD SPECIMENOrdering Facility: [facility] Address: [address] [place] [address] Performed By: #### 1 4196-0, 65352-2 ####[facility] LABCLIA [id number] [place] [address] [place] Eosinophils/100 WBC (Bld) 1.8 % Normal [facility] Comment on above: Order Comment: Speci men Type: BLOOD SPECIMENOrdering Facility: [facility] Address: [address] [place] [address] Performed By: #### 1 4196-0, 61878-7 ####[facility] LABCLIA [id number] [place] [address] [place] Erythrocyte distribution width (RBC) [Ratio] 12.6 % Normal 11.5-15.0 [facility] Comment on above: Order Comment: Speci men Type: BLOOD SPECIMENOrdering Facility: [facility] Address: [address] [place] [address] Performed By: #### 1 4196-0, 02250-1 ####[facility] LABIA [id number] [place] [address] [place] Hematocrit (Bld) [Volume fraction] 30.4 % Low 36.0-46.0 [facility] Comment on above: Order Comment: Speci men Type: BLOOD SPECIMENOrdering Facility: [facility] Address: [address] [place] [address] Performed By: #### 1 4196-0, 06150-2 ####[facility] LABIA [id number] [place] [address] [place] Hemoglobin (Bld) [Mass/Vol] 10.1 g/dL Low 11.5-15.5 [facility] Comment on above: Order Comment: Speci men Type: BLOOD SPECIMENOrdering Facility: [facility] Address: [address] [place] [address] Performed By: #### 1 4196-0, 43368-8 ####[facility] LABIA [id number] [place] [address] [place] Immature granulocytes (Bld) [#/Vol] 10*3/uL Normal <0.10 [facility] Comment on above: Order Comment: Speci men Type: BLOOD SPECIMENOrdering Facility: [facility] Address: [address] [place] [address] Performed By: #### 1 4196-0, 28693-7 ####[facility] LABIA [id number] [place] [address] [place] Immature granulocytes/100 WBC (Bld) 0.2 % Normal [facility] Comment on above: Order Comment: Speci men Type: BLOOD SPECIMENOrdering Facility: [facility] Address: [address] [place] [address] Performed By: #### 1 4196-0, 57965-0 ####[facility] LABCLIA [id number] [place] [address] [place] Lymphocytes (Bld) [#/Vol] 1.13 10*3/uL Normal 1.00-4.00 [facility] Comment on above: Order Comment: Speci men Type: BLOOD SPECIMENOrdering Facility: [facility] Address: [address] [place] [address] Performed By: #### 1 4196-0, 50332-7 ####[facility] LABCLIA [id number] [place] [address] [place] Lymphocytes/100 WBC (Bld) 20.8 % Normal [facility] Comment on above: Order Comment: Speci men Type: BLOOD SPECIMENOrdering Facility: [facility] Address: [address] [place] [address] Performed By: #### 1 4196-0, 13880-9 ####[facility] LABIA [id number] [place] [address] [place] MCH (RBC) [Entitic mass] 29.5 pg Normal 26.0-34.0 [facility] Comment on above: Order Comment: Speci men Type: BLOOD SPECIMENOrdering Facility: [facility] Address: [address] [place] [address] Performed By: #### 1 4196-0, 54314-4 ####[facility] LABCLIA [id number] [place] [address] [place] MCHC (RBC) [Mass/Vol] 33.2 g/dL Normal 30.5-36.0 [facility] Comment on above: Order Comment: Speci men Type: BLOOD SPECIMENOrdering Facility: [facility] Address: [address] [place] [address] Performed By: #### 1 4196-0, 92811-5 ####[facility] LABCLIA [id number] [place] [address] [place] MCV (RBC) [Entitic vol] 88.9 fL Normal 80.0-100.0 [facility] Comment on above: Order Comment: Speci men Type: BLOOD SPECIMENOrdering Facility: [facility] Address: [address] [place] [address] Performed By: #### 1 4196-0, 58097-8 ####[facility] LABCLIA [id number] [place] [address] [place] Monocytes (Bld) [#/Vol] 0.38 10*3/uL Normal <0.87 [facility] Comment on above: Order Comment: Speci men Type: BLOOD SPECIMENOrdering Facility: [facility] Address: [address] [place] [address] Performed By: #### 1 4196-0, 73210-7 ####[facility] LABCLIA [id number] [place] [address] [place] Monocytes/100 WBC (Bld) 7.0 % Normal [facility] Comment on above: Order Comment: Speci men Type: BLOOD SPECIMENOrdering Facility: [facility] Address: [address] [place] [address] Performed By: #### 1 4196-0, 30281-6 ####[facility] LABCLIA [id number] [place] [address] [place] Neutrophils (Bld) [#/Vol] 3.78 10*3/uL Normal 1.45-7.50 [facility] Comment on above: Order Comment: Speci men Type: BLOOD SPECIMENOrdering Facility: [facility] Address: [address] [place] [address] Performed By: #### 1 4196-0, 88434-9 ####[facility] LABCLIA [id number] [place] [address] [place] Neutrophils/100 WBC (Bld) 69.5 % Normal [facility] Comment on above: Order Comment: Speci men Type: BLOOD SPECIMENOrdering Facility: [facility] Address: [address] [place] [address] Performed By: #### 1 4196-0, 95061-2 ####[facility] LABIA [id number] [place] [address] [place] Nucleated RBC (Bld) [#/Vol] 10*3/uL Normal <0.01 [facility] Comment on above: Order Comment: Speci men Type: BLOOD SPECIMENOrdering Facility: [facility] Address: [address] [place] [address] Performed By: #### 1 4196-0, 23519-0 ####[facility] LABIA [id number] [place] [address] [place] Nucleated RBC/100 WBC (Bld) [Ratio] 0.0 /100 WBC Normal [facility] Comment on above: Order Comment: Speci men Type: BLOOD SPECIMENOrdering Facility: [facility] Address: [address] [place] [address] Performed By: #### 1 4196-0, 02431-8 ####[facility] LABIA [id number] [place] [address] [place] Platelet mean volume (Bld) [Entitic vol] 10.0 fL Normal 9.0-12.7 [facility] Comment on above: Order Comment: Speci men Type: BLOOD SPECIMENOrdering Facility: [facility] Address: [address] [place] [address] Performed By: #### 1 4196-0, 87609-1 ####[facility] LABIA [id number] [place] [address] [place] Platelets (Bld) [#/Vol] 271 10*3/uL Normal 150-400 [facility] Comment on above: Order Comment: Speci men Type: BLOOD SPECIMENOrdering Facility: [facility] Address: [address] [place] [address] Performed By: #### 1 4196-0, 70813-8 ####[facility] LABCLIA [id number] [place] [address] [place] RBC (Bld) [#/Vol] 3.42 10*6/uL Low 3.90-5.20 [facility] Comment on above: Order Comment: Speci men Type: BLOOD SPECIMENOrdering Facility: [facility] Address: [address] [place] [address] Performed By: #### 1 4196-0, 52387-6 ####[facility] LABIA [id number] [place] [address] [place] WBC (Bld) [#/Vol] 5.44 10*3/uL Normal 3.70-11.00 [facility] Comment on above: Order Comment: Speci men Type: BLOOD SPECIMENOrdering Facility: [facility] Address: [address] [place] [address] Performed By: #### 1 4196-0, 83436-5 ####[facility] LABIA [id number] [place] [address] [place] Comprehensive metabolic 2000 panelon 08-07-2023 Albumin [Mass/Vol] 3.7 g/dL Low 3.9-4.9 [facility] Comment on above: Order Comment: Speci men Type: BLOOD SPECIMENOrdering Facility: [facility] Address: [address] [place] [address] Performed By: #### 1 9123-9, 3040-3, 25194-8 ####[facility] LABIA [id number] [place] [address] [place] ALP [Catalytic activity/Vol] 58 U/L Normal 34-123 [facility] Comment on above: Order Comment: Speci men Type: BLOOD SPECIMENOrdering Facility: [facility] Address: [address] [place] [address] Performed By: #### 1 9123-9, 3040-3, 66848-9 ####[facility] LABCLIA [id number] [place] [address] [place] ALT [Catalytic activity/Vol] 16 U/L Normal 7-38 [facility] Comment on above: Order Comment: Speci men Type: BLOOD SPECIMENOrdering Facility: [facility] Address: [address] [place] [address] Performed By: #### 1 9123-9, 0-3, 03518-8 ####[facility] LABCLIA [id number] [place] [address] [place] Anion gap [Moles/Vol] 8 mmol/L Normal 8-15 [facility] Comment on above: Order Comment: Speci men Type: BLOOD SPECIMENOrdering Facility: [facility] Address: [address] [place] [address] Performed By: #### 1 9123-9, 3039-3, 30950-6 ####[facility] LABCLIA [id number] [place] [address] [place] AST [Catalytic activity/Vol] 18 U/L Normal 13-35 [facility] Comment on above: Order Comment: Speci men Type: BLOOD SPECIMENOrdering Facility: [facility] Address: [address] [place] [address] Performed By: #### 1 9123-9, 3040-3, 38320-8 ####[facility] LABIA [id number] [place] [id number] [place] Bilirubin [Mass/Vol] 0.2 mg/dL Normal 0.2-1.3 [facility] Comment on above: Order Comment: Speci men Type: BLOOD SPECIMENOrdering Facility: [facility] Address: [address] [place] [address] Performed By: #### 1 9123-9, 3040-3, ####[facility] LABCLIA [id number] [address] [address] [place] Calcium [Mass/Vol] 8.0 mg/dL Low 8.5-10.2 [facility] Comment on above: Order Comment: Speci men Type: BLOOD SPECIMENOrdering Facility: [facility] Address: [address] [place] [address] Performed By: #### 1 9123-9, 3, ####[facility] LABCLIA [id number] [place] [address] [place] Chloride [Moles/Vol] 108 mmol/L High 98-107 [facility] Comment on above: Order Comment: Speci men Type: BLOOD SPECIMENOrdering Facility: [facility] Address: [address] [place] [address] Performed By: #### 1 9123-9, 3, ####[facility] LABIA [id number] [place] [address] [place] CO2 [Moles/Vol] 23 mmol/L Normal 22-30 [facility] Comment on above: Order Comment: Speci men Type: BLOOD SPECIMENOrdering Facility: [facility] Address: [address] [place] [address] Performed By: #### 1 9123-9, 3, ####[facility] LABCLIA [id number] [address] [address] [place] Creatinine [Mass/Vol] 0.60 mg/dL Normal 0.58-0.96 [facility] Comment on above: Order Comment: Speci men Type: BLOOD SPECIMENOrdering Facility: [facility] Address: [address] [place], [place] [address] Performed By: #### 1 9123-9, 3, ####[facility] LABCLIA [id number] [address] [place] Creatinine and Glomerular filtration rate.predicted panel (S/P/Bld) 121 mL/min/1.73m??? Normal >=60 [facility] Comment on above: Order Comment: Geraldo marrero Type: BLOOD SPECIMENOrdering Facility: [facility] Address: [address] [place] [address] Result Comment: Jessica mated Glomerular Filtration Rate [...] actual GFR. Performed By: #### 1 9123-9, 3040-3, 83862-6 ####[facility] LABCLIA [id number] [place] [address] [place] Glucose [Mass/Vol] 89 mg/dL Normal 74-99 [facility] Comment on above: Order Comment: Geraldo marrreo Type: BLOOD SPECIMENOrdering Facility: [facility] Address: [address] [place] [address] Result Comment: The [place] Diabetes Association (ADA) provides guidance for cutoff [...] Standards of Medical Care in Diabetes 2016, [place] Diabetes Association. Diabetes Care. 2016.39(Suppl 1). Performed By: #### 1 9123-9, 3040-3, 47956-9 ####[facility] LABIA [id number] [place] [id number] [place] Potassium [Moles/Vol] 3.6 mmol/L Low 3.7-5.1 [facility] Comment on above: Order Comment: Speci men Type: BLOOD SPECIMENOrdering Facility: [facility] Address: [address] [place] [address] Performed By: #### 1 9123-9, 3040-3, 46077-7 ####[facility] LABCLIA [id number] [place] [address] [place] Protein [Mass/Vol] 5.8 g/dL Low 6.3-8.0 [facility] Comment on above: Order Comment: Speci men Type: BLOOD SPECIMENOrdering Facility: [facility] Address: [address] [place] [address] Performed By: #### 1 9123-9, 3040-3, 27178-1 ####[facility] LABCLIA [id number] [place] [address] [place] Sodium [Moles/Vol] 139 mmol/L Normal 136-144 [facility] Comment on above: Order Comment: Speci men Type: BLOOD SPECIMENOrdering Facility: [facility] Address: [address] [place] [address] Performed By: #### 1 9123-9, 3040-3, 20849-3 ####[facility] LABCLIA [id number] [place] [address] [place] Urea nitrogen [Mass/Vol] 10 mg/dL Normal 7-21 [facility] Comment on above: Order Comment: Speci men Type: BLOOD SPECIMENOrdering Facility: [facility] Address: [address] [place] [address] Performed By: #### 1 9123-9, 3040-3, 18121-7 ####[facility] LABCLIA [id number] [place] [id number] [place] BBP61by 08-07-2023 ECG01 Normal [facility] ED NOTEon 08-07-2023 ED NOTE HNO ID: [id number] Author: PASTORA MADERA RN Service: ? Author Type: Registered Nurse Type: ED Notes Filed: 08/07/2023 17:39 Note Text: Report given to H80 Normal [facility] ED NOTE HNO ID: [id number] Author: PASTORA MADERA RN Service: ? Author Type: Registered Nurse Type: ED Notes Filed: 08/07/2023 17:07 Note Text: Report attempted x1. Call back # given Normal [facility] ED NOTE HNO ID: [id number] Author: ESTEFANI WHITE CT Service: Emergency Medicine Author Type: Clinical Busperson Type: ED Notes Filed: 08/07/2023 09:32 Note Text: EKG complete Normal [facility] ED PROV NOTEon 08-07-2023 ED PROV NOTE Normal [facility] HISTORY PHYSICALon HISTORY PHYSICAL Normal [facility] Lactate (Bld) [Moles/Vol]on 08-07-2023 Lactate [Moles/Vol] 0.8 mmol/L Normal 0.5-2.2 [facility] Comment on above: Order Comment: Speci men Type: BLOOD SPECIMENOrdering Facility: [facility] Address: [address] [place] [address] Performed By: #### 3 2693-4 ####[facility] LABCLIA [id number] [place] [address] [place] Lipase SerPl-cCncon 08-07-19 24 Lipase [Catalytic activity/Vol] 45 U/L Normal 16-61 [facility] Comment on above: Order Comment: Speci men Type: BLOOD SPECIMENOrdering Facility: [facility] Address: [address] [place] [address] Performed By: #### 1 9123-9, 3040-3, 48819-1 ####[facility] LABCLIA [id number] [place] [address] [place] Magnesium SerPl-mCncon 08-06 Magnesium [Mass/Vol] 1.9 mg/dL Normal 1.7-2.3 [facility] Comment on above: Order Comment: Speci men Type: BLOOD SPECIMENOrdering Facility: [facility] Address: [address] [place] [address] Performed By: #### 1 9123-9, 3040-3, 45590-6 ####[facility] LABIA [id number] [place] [address] [place] Retics #on 08-07-2023 Reticulocytes (Bld) [#/Vol] 0.88794 10*3/uL Normal 0.018-0.100 [facility] Comment on above: Order Comment: Speci men Type: BLOOD SPECIMENOrdering Facility: [facility] Address: [address] [place] [address] Performed By: #### 1 4196-0, 34326-4 ####[facility] LABIA [id number] [place] [address] [place] Reticulocytes (Bld) [#/Vol]o n 08-07-2023 Reticulocytes/100 RBC (Bld) 1.6 % Normal 0.4-2.0 [facility] Comment on above: Order Comment: Speci men Type: BLOOD SPECIMENOrdering Facility: [facility] Address: [address] [place] [address] Performed By: #### 1 4196-0, 52170-8 ####[facility] LABIA [id number] [place] [address] [place] STREPTOCOCCUS PNEUMONIAE ANT IGEN URINEon 08-07-2023 STREPTOCOCCUS PNEUMONIAE ANTIGEN URINE Normal [facility] Comment on above: Performed By: #### S PNAG ####[facility] LABCLIA [id number] [place] [address] [place] XR CHEST 2V FRONTAL/LATon XR CHEST 2V FRONTAL/LAT Normal [facility] CASE MANAGEMon 08-06-2023 CASE MANAGEM Normal [facility] CNDSon 08-06-2023 CNDS Normal [facility] CONSULT PROGon 08-06-2023 CONSULT PROG Normal [facility] Magnesium SerPl-mCncon 08-05 Magnesium [Mass/Vol] 1.8 mg/dL Normal 1.7-2.3 [facility] Comment on above: Order Comment: Speci men Type: BLOOD SPECIMENOrdering Facility: [facility] Address: [address] [place] [address] Performed By: #### 1 9123-9, 13038-0 ####[facility] LABORATORYCLIA [id number] [place] [address] [place] NURSING PROGon 08-06-2023 NURSING PROG Normal [facility] NUTRITIONon 08-06-2023 NUTRITION Normal [facility] Renal function 2000 panelon 08-06-2023 Albumin [Mass/Vol] 3.5 g/dL Low 3.9-4.9 [facility] Comment on above: Order Comment: Speci men Type: BLOOD SPECIMENOrdering Facility: [facility] Address: [address] [place] [address] Performed By: #### 1 9123-9, 07235-3 ####[facility] LABORATORYCLIA [id number] [place] [address] [place] Anion gap [Moles/Vol] 10 mmol/L Normal 8-15 [facility] Comment on above: Order Comment: Speci men Type: BLOOD SPECIMENOrdering Facility: [facility] Address: [address] [place] [address] Performed By: #### 1 9123-9, 24090-0 ####[facility] LABORATORYCLIA [id number] [place] [address] [place] Calcium [Mass/Vol] 8.2 mg/dL Low 8.5-10.2 [facility] Comment on above: Order Comment: Speci men Type: BLOOD SPECIMENOrdering Facility: [facility] Address: [address] [place] [address] Performed By: #### 1 9123-9, 48905-2 ####[facility] LABORATORYCLIA [id number] [facility] [place] [address] [place] Chloride [Moles/Vol] 106 mmol/L Normal 98-107 [facility] Comment on above: Order Comment: Speci men Type: BLOOD SPECIMENOrdering Facility: [facility] Address: [address] [place] [address] Performed By: #### 1 9123-9, 99225-3 ####[facility] LABORATORYCLIA [id number] [place] [address] [place] CO2 [Moles/Vol] 23 mmol/L Normal 22-30 [facility] Comment on above: Order Comment: Speci men Type: BLOOD SPECIMENOrdering Facility: [facility] Address: [address] [place] [address] Performed By: #### 1 9123-9, 67327-3 ####[facility]PITALCLIA [id number] [facility] [place] [place] [address] [place] Creatinine [Mass/Vol] 0.71 mg/dL Normal 0.58-0.96 [facility] Comment on above: Order Comment: Speci men Type: BLOOD SPECIMENOrdering Facility: [facility] Address: [address] [place] [address] Performed By: #### 1 9123-9, 58481-1 ####[facility] LABORATORYCLIA [id number] [facility] [place] [address] [place] Creatinine and Glomerular filtration rate.predicted panel (S/P/Bld) 115 mL/min/1.73m??? Normal >=60 [facility] Comment on above: Order Comment: Speci men Type: BLOOD SPECIMENOrdering Facility: [facility] Address: [address] [place] [address] Result Comment: Jessica mated Glomerular Filtration Rate [...] actual GFR. Performed By: #### 1 9123-9, 73997-7 ####[facility] LABORATORYCLIA [id number] [place] [address] [place] Glucose [Mass/Vol] 106 mg/dL High 74-99 [facility] Comment on above: Order Comment: [facility] Type: BLOOD SPECIMENOrdering Facility: [facility] Address: [address] [place] [address] Result Comment: The [place] Diabetes Association (ADA) provides guidance for cutoff [...] Standards of Medical Care in Diabetes 2016, [place] Diabetes Association. Diabetes Care. 2016.39(Suppl 1). Performed By: #### 1 9123-9, 57125-3 ####[facility] LABORATORYCLIA [id number] [place] [address] [place] Phosphate [Mass/Vol] 4.2 mg/dL Normal 2.7-4.8 [facility] Comment on above: Order Comment: Geraldo [facility] Type: BLOOD SPECIMENOrdering Facility: [facility] Address: [address] [place] [address] Performed By: #### 1 9123-9, 63316-1 ####[facility] LABORATORYCLIA [id number] [place] [address] [place] Potassium [Moles/Vol] 3.8 mmol/L Normal 3.7-5.1 [facility] Comment on above: Order Comment: Speci men Type: BLOOD SPECIMENOrdering Facility: [facility] Address: [address] [id number] Performed By: #### 1 9123-9, 73522-6 ####[facility] LABORATORYCLIA [id number] [facility] [place] [address] [place] Sodium [Moles/Vol] 139 mmol/L Normal 136-144 [facility] ospital Comment on above: Order Comment: Speci men Type: BLOOD SPECIMENOrdering Facility: [facility] Address: [address] [place] [address] Performed By: #### 1 9123-9, 41317-3 ####[facility] LABORATORYCLIA [id number] [facility] [place] [address] [place] Urea nitrogen [Mass/Vol] 12 mg/dL Normal 7-21 [facility] Comment on above: Order Comment: Speci men Type: BLOOD SPECIMENOrdering Facility: [facility] Address: [address] [place] [address] Performed By: #### 1 9123-9, 46966-8 ####[facility] LABORATORYCLIA [id number] [facility] [place] [address] [place] ALLIED HEALTHon 08-05-2023 ALLIED HEALTH Normal [facility]2023 CONSULT Normal [facility] NUTRITIONon 08-05-2023 NUTRITION Normal [facility] CBC W Auto Differential pane l (Bld)on 08-04-2023 Basophils (Bld) [#/Vol] 0.04 10*3/uL Normal <0.11 [facility] Comment on above: Order Comment: Speci men Type: BLOOD SPECIMENOrdering Facility: [facility] Address: [address] [place] [address] Performed By: #### 5 7021-8 ####[facility] LABORATORYCLIA [id number] [facility] [place] [address] [place] Basophils/100 WBC (Bld) 0.5 % Normal [facility] Comment on above: Order Comment: Speci men Type: BLOOD SPECIMENOrdering Facility: [facility] Address: [address] [place] [address] Performed By: #### 5 7021-8 ####[facility] HOSPITALIA [id number] [place] [address] [place] Differential cell count method Nom (Bld) Auto Normal [facility] Comment on above: Order Comment: Speci men Type: BLOOD SPECIMENOrdering Facility: [facility] Address: [address] [place] [address] Performed By: #### 5 7021-8 ####[facility] HOSPITALIA [id number] [place] [address] [place] Eosinophils (Bld) [#/Vol] 0.05 10*3/uL Normal <0.46 [facility] Comment on above: Order Comment: Speci men Type: BLOOD SPECIMENOrdering Facility: [facility] Address: [address] [place] [address] Performed By: #### 5 7021-8 ####[facility] HOSPITALIA [id number] [place] [address] [place] Eosinophils/100 WBC (Bld) 0.6 % Normal [facility] Comment on above: Order Comment: Speci men Type: BLOOD SPECIMENOrdering Facility: [facility] Address: [address] [place] [address] Performed By: #### 5 7021-8 ####[facility] HOSPITALIA [id number] [place] [address] [place] Erythrocyte distribution width (RBC) [Ratio] 12.8 % Normal 11.5-15.0 [facility] Comment on above: Order Comment: Speci men Type: BLOOD SPECIMENOrdering Facility: [facility] Address: [address] [place] [address] Performed By: #### 5 7021-8 ####[facility] LABORATORYIA [id number] [place] [address] [place] Hematocrit (Bld) [Volume fraction] 36.2 % Normal 36.0-46.0 [facility] Comment on above: Order Comment: Speci men Type: BLOOD SPECIMENOrdering Facility: [facility] Address: [address] [place] [address] Performed By: #### 5 7021-8 ####[facility] LABORATORYCLIA [id number] [place] [address] [place] Hemoglobin (Bld) [Mass/Vol] 12.0 g/dL Normal 11.5-15.5 [facility] Comment on above: Order Comment: Speci men Type: BLOOD SPECIMENOrdering Facility: [facility] Address: [address] [place] [address] Performed By: #### 5 7021-8 ####[facility] LABORATORYCLIA [id number] [place] [address] [place] Immature granulocytes (Bld) [#/Vol] 10*3/uL Normal <0.10 [facility] Comment on above: Order Comment: Speci men Type: BLOOD SPECIMENOrdering Facility: [facility] Address: [address] [place] [address] Performed By: #### 5 7021-8 ####[facility] LABORATORYIA [id number] [place] [address] [place] Immature granulocytes/100 WBC (Bld) 0.2 % Normal [facility] Comment on above: Order Comment: Speci men Type: BLOOD SPECIMENOrdering Facility: [facility] Address: [address] [place] [address] Performed By: #### 5 7021-8 ####[facility] LABORATORYCLIA [id number] [place] [id number] [place] Lymphocytes (Bld) [#/Vol] 1.30 10*3/uL Normal 1.00-4.00 [facility] Comment on above: Order Comment: Speci men Type: BLOOD SPECIMENOrdering Facility: [facility] Address: [address] [place] [address] Performed By: #### 5 7021-8 ####[facility] LABORATORYIA [id number] [place] [address] [place] Lymphocytes/100 WBC (Bld) 14.9 % Normal [facility] Comment on above: Order Comment: Speci men Type: BLOOD SPECIMENOrdering Facility: [facility] Address: [address] [place] [address] Performed By: #### 5 7021-8 ####[facility] HOSPITALIA [id number] [address] [place] MCH (RBC) [Entitic mass] 30.1 pg Normal 26.0-34.0 [facility] Comment on above: Order Comment: Speci men Type: BLOOD SPECIMENOrdering Facility: [facility] Address: [address] [place] [address] Performed By: #### 5 7021-8 ####[facility] [id number] [place] [address] [place] MCHC (RBC) [Mass/Vol] 33.1 g/dL Normal 30.5-36.0 [facility] Comment on above: Order Comment: Speci men Type: BLOOD SPECIMENOrdering Facility: [facility] Address: [address] [place] [address] Performed By: #### 5 7021-8 ####[facility] [id number] [address] [place] MCV (RBC) [Entitic vol] 90.7 fL Normal 80.0-100.0 [facility] Comment on above: Order Comment: Speci men Type: BLOOD SPECIMENOrdering Facility: [facility] Address: [address] [place] [address] Performed By: #### 5 7021-8 ####[facility] [id number] [address] [place] Monocytes (Bld) [#/Vol] 0.39 10*3/uL Normal <0.87 [facility] Comment on above: Order Comment: Speci men Type: BLOOD SPECIMENOrdering Facility: [facility] Address: [address] [place] [address] Performed By: #### 5 7021-8 ####[facility] LABORATORYCLIA [id number] [facility] [place] [address] [place] Monocytes/100 WBC (Bld) 4.5 % Normal [facility] Comment on above: Order Comment: Speci men Type: BLOOD SPECIMENOrdering Facility: [facility] Address: [address] [place] [address] Performed By: #### 5 7021-8 ####[facility] LABORATORYCLIA [id number] [place] [address] [place] Neutrophils (Bld) [#/Vol] 6.91 10*3/uL Normal 1.45-7.50 [facility] Comment on above: Order Comment: Speci men Type: BLOOD SPECIMENOrdering Facility: [facility] Address: [address] [place] [address] Performed By: #### 5 7021-8 ####[facility] LABORATORYCLIA [id number] [place] [id number] [place] Neutrophils/100 WBC (Bld) 79.3 % Normal [facility] Comment on above: Order Comment: Speci men Type: BLOOD SPECIMENOrdering Facility: [facility] Address: [address] [place] [address] Performed By: #### 5 7021-8 ####[facility] LABORATORYCLIA [id number] [facility] [place] [address] [place] Nucleated RBC (Bld) [#/Vol] 10*3/uL Normal <0.01 [facility] Comment on above: Order Comment: Speci men Type: BLOOD SPECIMENOrdering Facility: [facility] Address: [address] [place] [address] Performed By: #### 5 7021-8 ####[facility] LABORATORYCLIA [id number] [facility] [place] [address] [place] Nucleated RBC/100 WBC (Bld) [Ratio] 0.0 /100 WBC Normal [facility] Comment on above: Order Comment: Speci men Type: BLOOD SPECIMENOrdering Facility: [facility] Address: [address] [place] [address] Performed By: #### 5 7021-8 ####[facility] LABORATORYCLIA [id number] [place] [address] [place] Platelet mean volume (Bld) [Entitic vol] 10.5 fL Normal 9.0-12.7 [facility] Comment on above: Order Comment: Speci men Type: BLOOD SPECIMENOrdering Facility: [facility] Address: [address] [place] [address] Performed By: #### 5 7021-8 ####[facility] LABORATORYCLIA [id number] [place] [address] [place] Platelets (Bld) [#/Vol] 328 10*3/uL Normal 150-400 [facility] Comment on above: Order Comment: Speci men Type: BLOOD SPECIMENOrdering Facility: [facility] Address: [address] [place] [address] Performed By: #### 5 7021-8 ####[facility] LABORATORYCLIA [id number] [place] [address] [place] RBC (Bld) [#/Vol] 3.99 10*6/uL Normal 3.90-5.20 [facility] Comment on above: Order Comment: Speci men Type: BLOOD SPECIMENOrdering Facility: [facility] Address: [address] [place] [address] Performed By: #### 5 7021-8 ####[facility] LABORATORYCLIA [id number] [place] [address] [place] WBC (Bld) [#/Vol] 8.71 10*3/uL Normal 3.70-11.00 [facility] Comment on above: Order Comment: Speci men Type: BLOOD SPECIMENOrdering Facility: [facility] Address: [address] [place] [address] Performed By: #### 5 7021-8 ####[facility] HOSPITALIA [id number] [facility] [place] [address] [place] CNOVon 08-04-2023 CNOV Normal [facility] CNPNon 08-04-2023 CNPN Normal [facility] CONSULTon 08-04-2023 CONSULT Normal [facility] CT ABD/PEL W IVCONon 024 CT ABD/PEL W IVCON Normal [facility] BRAIN WO IVCONon 08-04-[address] BRAIN WO IVCON Normal [facility] Comprehensive metabolic 2000 panelon 08-04-2023 Albumin [Mass/Vol] 3.8 g/dL Low 3.9-4.9 [facility] Comment on above: Order Comment: Speci men Type: BLOOD SPECIMENOrdering Facility: [facility] Address: [address] [place] [address] Performed By: #### 2 4323-8, , 0-3 ####[facility] HOSPITALIA [id number] [facility] [place] [address] [place] ALP [Catalytic activity/Vol] 76 U/L Normal 34-123 [facility] Comment on above: Order Comment: Speci men Type: BLOOD SPECIMENOrdering Facility: [facility] Address: [address] [place] [address] Performed By: #### 2 4323-8, 67093-3, 0-3 ####[facility] HOSPITALIA [id number] [place] [address] [place] ALT [Catalytic activity/Vol] Normal [facility] Comment on above: Order Comment: Speci men Type: BLOOD SPECIMENOrdering Facility: [facility] Address: [address] [place] [address] Result Comment: Unab le to assay due to interference from hemolysis. Suggest reorder as clinically indicated. Performed By: #### 2 4323-8, 51058-0, 0-3 ####[facility] LABORATORYIA [id number] [place] [address] [place] Anion gap [Moles/Vol] 10 mmol/L Normal 8-15 [facility] Comment on above: Order Comment: Speci men Type: BLOOD SPECIMENOrdering Facility: [facility] Address: [address] [place] [address] Performed By: #### 2 4323-8, , 3 ####[facility] LABORATORYCLIA [id number] [place] [address] [place] AST [Catalytic activity/Vol] Normal [facility] Comment on above: Order Comment: Speci men Type: BLOOD SPECIMENOrdering Facility: [facility] Address: [address] [place] [address] Result Comment: Unab le to assay due to interference from hemolysis. Suggest reorder as clinically indicated. Performed By: #### 2 4323-8, , 3 ####[facility] LABORATORYCLIA [id number] [place] [address] [place] Bilirubin [Mass/Vol] 0.3 mg/dL Normal 0.2-1.3 [facility] Comment on above: Order Comment: Speci men Type: BLOOD SPECIMENOrdering Facility: [facility] Address: [address] [place] [address] Performed By: #### 2 4323-8, , 3 ####[facility] LABORATORYCLIA [id number] [place] [address] [place] Calcium [Mass/Vol] 8.7 mg/dL Normal 8.5-10.2 [facility]spital Comment on above: Order Comment: Speci men Type: BLOOD SPECIMENOrdering Facility: [facility] Address: [address] [place] [address] Performed By: #### 2 4323-8, , 3 ####[facility] LABORATORYCLIA [id number] [place] [address] [place] Chloride [Moles/Vol] 106 mmol/L Normal 98-107 [facility] Comment on above: Order Comment: Speci men Type: BLOOD SPECIMENOrdering Facility: [facility] Address: [address] [place], [place] [address] Performed By: #### 2 4323-8, 71453-2, 0-3 ####[facility]PITALCLIA [id number] [place] [address] [place] CO2 [Moles/Vol] 23 mmol/L Normal 22-30 [facility] Comment on above: Order Comment: Speci men Type: BLOOD SPECIMENOrdering Facility: [facility] Address: [address] [place] [address] Performed By: #### 2 4323-8, , 3 ####[facility] LABORATORYIA [id number] [place] [address] [place] Creatinine [Mass/Vol] 0.71 mg/dL Normal 0.58-0.96 [facility] Comment on above: Order Comment: Speci men Type: BLOOD SPECIMENOrdering Facility: [facility] Address: [address] [place] [address] Performed By: #### 2 4323-8, , 3 ####[facility] HOSPITALIA [id number] [address] [place] Creatinine and Glomerular filtration rate.predicted panel (S/P/Bld) 115 mL/min/1.73m??? Normal >=60 [facility] l Comment on above: Order Comment: Speci men Type: BLOOD SPECIMENOrdering Facility: [facility] Address: [address] [place] [address] Result Comment: Jessica mated Glomerular Filtration Rate [...] actual GFR. Performed By: #### 2 4323-8, 20754-2, 0-3 ####[facility] LABORATORYCLIA [id number] [place] [address] [place] Glucose [Mass/Vol] 82 mg/dL Normal 74-99 [facility] Comment on above: Order Comment: Speci men Type: BLOOD SPECIMENOrdering Facility: [facility] Address: [address] [place] [address] Result Comment: The [place] Diabetes Association (ADA) provides guidance for cutoff [...] Standards of Medical Care in Diabetes 2016, [place] Diabetes Association. Diabetes Care. 2016.39(Suppl 1). Performed By: #### 2 4323-8, 30067-4, 3039-3 ####[facility] LABORATORYIA [id number] [place] [address] [place] Potassium [Moles/Vol] 4.3 mmol/L Normal 3.7-5.1 [facility] Comment on above: Order Comment: Lyssai men Type: BLOOD SPECIMENOrdering Facility: [facility] Address: [address] [place] [address] Performed By: #### 2 4323-8, , 3039-3 ####[facility] LABORATORYIA [id number] [place] [address] [place] Protein [Mass/Vol] 6.8 g/dL Normal 6.3-8.0 [facility] Comment on above: Order Comment: Speci men Type: BLOOD SPECIMENOrdering Facility: [facility] Address: [address] [place], [place] [address] Performed By: #### 2 4323-8, 34147-1, 3039-3 ####[facility] LABORATORYCLIA [id number] [facility] [place] [address] [place] Sodium [Moles/Vol] 139 mmol/L Normal 136-144 [facility] ospital Comment on above: Order Comment: Speci men Type: BLOOD SPECIMENOrdering Facility: [facility] Address: [address] [place] [address] Performed By: #### 2 4323-8, 06115-9, 3040-3 ####[facility] LABORATORYCLIA [id number] [place] [address] [place] Urea nitrogen [Mass/Vol] 6 mg/dL Low 7- [facility] Comment on above: Order Comment: Speci men Type: BLOOD SPECIMENOrdering Facility: [facility] Address: [address] [place] [address] Performed By: #### 2 4323-8, 04063-4, 3040-3 ####[facility] LABORATORYCLIA [id number] [place] [address] [place] ECG COMPLETEon 08-04-2023 ECG COMPLETE Normal [facility] ED NOTEon 08-04-2023 ED NOTE HNO ID: [id number] Author: ANAM NAILS RN Service: Emergency Medicine Author Type: Registered Nurse Type: ED Notes Filed: 08/04/2023 14:44 Note Text: Pt remains unable to provide urine sample at this time. [facility] ED NOTE HNO ID: [id number] Author: ANAM NAILS RN Service: Emergency Medicine Author Type: Registered Nurse Type: ED Notes Filed: 08/04/2023 14:43 Note Text: Pt unable to provide urine sample at this time. Normal [facility] ED NOTE HNO ID: [id number] Author: CORIE BILLINGSLEY, Efrem Service: ? Author Type: [employer] Type: ED Notes Filed: 08/04/2023 09:52 Note Text: Pt also states she fell yesterday and LOC noted. Pt had had multiple episodes of diarrhea as well. Normal [facility] ED PROV NOTEon 08-04-2023 ED PROV NOTE Normal [facility] HIGH SENSITIVITY TROPONIN T (INITIAL)on 08-04-2023 Troponin T.cardiac High sensitivity method [Mass/Vol] <6 Normal <12 [facility] Comment on above: Order Comment: Geraldo marrero Type: BLOOD SPECIMENOrdering Facility: [facility] Address: [address] [place] [address] Result Comment: When assessing risk for acute coronary syndromes: In patients undergoing blood draw greater than or equal to 2 hours from symptom onset, with history of very low to moderate risk and non-ischemic ECG, an initial hs-Troponin T less than 12 ng/L AND a 1 hour delta hs-Troponin T less than 3 ng/L should be considered very low risk for 30 day MACE. Performed By: #### L [id number] ####[facility] LABORATORYCLIA [id number] [address] [place] [facility] HIGH SENSITIVITY TROPONIN T (SECOND)on 08-04-2023 Troponin T.cardiac High sensitivity method [Mass/Vol] <6 Normal <12 [facility] Comment on above: Order Comment: Geraldo marrero Type: BLOOD SPECIMENOrdering Facility: [facility] Address: [address] [place] [address] Result Comment: When assessing risk for acute coronary syndromes: In patients undergoing blood draw greater than or equal to 2 hours from symptom onset, with history of very low to moderate risk and non-ischemic ECG, an initial hs-Troponin T less than 12 ng/L AND a 1 hour delta hs-Troponin T less than 3 ng/L should be considered very low risk for 30 day MACE. Performed By: #### L [id number] ####[facility] LABORATORYCLIA [id number] [place] [address] [place] HISTORY PHYSICALon 4 HISTORY PHYSICAL Normal [facility] pital Lipase SerPl-cCncon 08-04-19 24 Lipase [Catalytic activity/Vol] 52 U/L Normal 16-61 [facility] Comment on above: Order Comment: Geraldo marrero Type: BLOOD SPECIMENOrdering Facility: [facility] Address: [address] [place] [address] Performed By: #### 2 4323-8, 45136-4, 3040-3 ####[facility]OSPITALIA [id number] [place] [address] [place] Magnesium SerPl-mCncon 08-03 Magnesium [Mass/Vol] 1.9 mg/dL Normal 1.7-2.3 [facility] Comment on above: Order Comment: Speci men Type: BLOOD SPECIMENOrdering Facility: [facility] Address: [address] [place] [address] Performed By: #### 2 4323-8, 19573-7, 3040-3 ####[facility] HOSPITALIA [id number] [place] [address] [place] SEPSIS LACTATE W/ REFLEX (IN ITIAL)on 08-04-2023 Lactate [Moles/Vol] 1.5 mmol/L Normal 0.0-2.0 [facility] Comment on above: Order Comment: Speci men Type: BLOOD SPECIMENOrdering Facility: [facility] Address: [address] [place] [address] Performed By: #### S LACTR ####[facility] [id number] [place] [address] [place] Urinalysis complete panel (U )on 08-04-2023 Bilirubin Ql (U) Negative Normal Negative [facility] Comment on above: Order Comment: Speci men Type: URINE SPECIMENOrdering Facility: [facility] Address: [address] [place] [address] Performed By: #### 2 4356-8 ####[facility] [id number] [place] [address] [place] Clarity (Unsp spec) Clear Normal Clear [facility] Comment on above: Order Comment: Speci men Type: URINE SPECIMENOrdering Facility: [facility] Address: [address] [place] [address] Performed By: #### 2 4356-8 ####[facility] [id number] [place] [address] [place] Color (U) Yellow Normal Yellow [facility] Comment on above: Order Comment: Speci men Type: URINE SPECIMENOrdering Facility: [facility] Address: [address] [place] [address] Performed By: #### 2 4356-8 ####[facility] [id number] [place] [address] [place] Glucose Test strip (U) [Mass/Vol] Negative Normal Trace, Negative [facility] Comment on above: Order Comment: Speci men Type: URINE SPECIMENOrdering Facility: [facility] Address: [address] [place] [address] Performed By: #### 2 4356-8 ####[facility] [id number] [place] [address] [place] Hemoglobin Ql (U) Negative Normal Negative, Trace [facility] Comment on above: Order Comment: Speci men Type: URINE SPECIMENOrdering Facility: [facility] Address: [address] [place] [address] Performed By: #### 2 4356-8 ####[facility] [id number] [place] [address] [place] Ketones Ql (U) Negative Normal Negative, Trace [facility] Comment on above: Order Comment: Speci men Type: URINE SPECIMENOrdering Facility: [facility] Address: [address] [place] [address] Performed By: #### 2 4356-8 ####[facility] [id number] [place] [address] [place] Leukocyte esterase Test strip Ql (U) Negative Normal Negative, 25 Patito/uL [facility] Comment on above: Order Comment: Speci men Type: URINE SPECIMENOrdering Facility: [facility] Address: [address] [place] [address] Performed By: #### 2 4356-8 ####[facility] [id number] [place] [address] [place] Nitrite Ql (U) Negative Normal Negative [facility] Comment on above: Order Comment: Speci men Type: URINE SPECIMENOrdering Facility: [facility] Address: [address] [place] [address] Performed By: #### 2 4356-8 ####[facility] [id number] [place] [id number] [place] pH (U) 7.5 [pH] Normal 5.0-8.0 [facility] Comment on above: Order Comment: Speci men Type: URINE SPECIMENOrdering Facility: [facility] Address: [address] [place] [address] Performed By: #### 2 4356-8 ####[facility] [id number] [place] [id number] [place] Protein (U) [Mass/Vol] Trace Normal Trace, Negative [facility] Comment on above: Order Comment: Speci men Type: URINE SPECIMENOrdering Facility: [facility] Address: [address] [place] [address] Performed By: #### 2 4356-8 ####[facility] [id number] [place] [address] [place] RBC LM.HPF (Urine sed) [#/Area] 0-3 /HPF Normal 0-3 /HPF [facility] Comment on above: Order Comment: Speci men Type: URINE SPECIMENOrdering Facility: [facility] Address: [address] [place] [address] Performed By: #### 2 4356-8 ####[facility] [id number] [place] [id number] [place] Specific gravity (U) [Rel density] <1.005 Low 1.005-1.030 [facility] Comment on above: Order Comment: Speci men Type: URINE SPECIMENOrdering Facility: [facility] Address: [address] [place] [address] Performed By: #### 2 4356-8 ####[facility] [id number] [place] [address] [place] Urobilinogen Ql (U) Normal Normal Normal [facility] Comment on above: Order Comment: Speci men Type: URINE SPECIMENOrdering Facility: [facility] Address: [address] [place] [address] Performed By: #### 2 4356-8 ####[facility]ORATORYCLIA [id number] [place] [address] [place] WBC LM.HPF (Urine sed) [#/Area] 0-5 /HPF Normal 0-5 /HPF [facility] Comment on above: Order Comment: Speci men Type: URINE SPECIMENOrdering Facility: [facility] Address: [address] [place], [place] [address] Performed By: #### 2 4356-8 ####[facility]OR[facility]ORYCLIA [id number] [place] [address] [place] XR CHEST 1V FRONTAL PORTon 0 08-04-2023 XR CHEST 1V FRONTAL PORT Normal [facility] Activated partial thrombopla stin time (aPTT) in platelet poor plasma by coagulation aOrdered By: Jeramy Cunningham on 07-31-2023 aPTT Coag (PPP) [Time] 27.0 s 25.1-36.5 [facility] Comment on above: A hematocrit value g reater than 55% may lead to inaccurate results in coagulation testing. Patients having hematocrit values >55% require a special collection tube for coagulation studies. Please contact the laboratory at [phone] for redraw instructions. Alanine aminotransferase [En zymatic activity/volume] in Serum or PlasmaOrdered By: Jeramy Cunningham on 07-31-2023 ALT [Catalytic activity/Vol] 29 U/L 7-52 [facility] Comment on above: Performed By: #### C BC, BMP, HEPATIC, LIPASE #### [facility] [address] Albumin [Mass/volume] in Ser um or Plasma by Bromocresol green (BCG) dye binding methoOrdered By: Jeramy Cunningham on 07-31-2023 Albumin BCG dye [Mass/Vol] 4.0 g/dL 3.5-5.7 [facility] Alkaline phosphatase [Enzyma tic activity/volume] in Serum or PlasmaOrdered By: Jeramy Cunningham on 07-31-2023 ALP [Catalytic activity/Vol] 58 U/L 34-104 [facility] Comment on above: Performed By: #### C BC, BMP, HEPATIC, LIPASE #### [facility] [address] Aspartate aminotransferase [ Enzymatic activity/volume] in Serum or PlasmaOrdered By: Jeramy Cunningham on 07-31-2023 AST [Catalytic activity/Vol] 34 U/L 13-39 [facility] Comment on above: Performed By: #### C BC, BMP, HEPATIC, LIPASE #### [address] Automated basophil %Ordered By: Jeramy Cunningham on 07-31-2023 Basophils/100 WBC (Bld) 0.6 % . [facility] Comment on above: Performed By: #### C BC, BMP, HEPATIC, LIPASE #### [address] Automated basophil countOrde red By: Jeramy Cunningham on 07-31-2023 Basophils (Bld) [#/Vol] 0.0 10*3/uL 0.0-0.2 [facility] Comment on above: Result Comment: PERF ORMED BY: [place] [address] PATHOLOGIST SALES OPERATIONS ASSISTANT BAUTISTA BAKER M.D. Performed By: #### C BC, BMP, HEPATIC, LIPASE #### [facility] [address] [place] [address] Automated blood monocyte cou ntOrdered By: Jeramy Cunningham on 07-31-2023 Monocytes (Bld) [#/Vol] 0.2 10*3/uL 0.0-0.8 [facility] Comment on above: Performed By: #### C BC, BMP, HEPATIC, LIPASE #### [address] Automated eosinophil %Ordere d By: Jeramy Cunningham on 07-31-2023 Eosinophils/100 WBC (Bld) 0.2 % . [facility] Comment on above: Performed By: #### C BC, BMP, HEPATIC, LIPASE #### [address] Automated eosinophil countOr dered By: Jeramy Cunningham on 07-31-2023 Eosinophils (Bld) [#/Vol] 0.0 10*3/uL 0.0-0.45 [facility] Comment on above: Performed By: #### C BC, BMP, HEPATIC, LIPASE #### [address] Automated monocyte %Ordered By: Jeramy Cunningham on 07-31-2023 Monocytes/100 WBC (Bld) 3.1 % . [facility] Comment on above: Performed By: #### C BC, BMP, HEPATIC, LIPASE #### [address] Automated neutrophil %Ordere d By: Jeramy Cunningham on 07-31-2023 Neutrophils/100 WBC (Bld) 84.9 % . [facility] Comment on above: Performed By: #### C BC, BMP, HEPATIC, LIPASE #### [address] Basic Metabolic Panelon 07-16 Creatinine Clr Calc Pharmacy 120.10 Normal [facility] Comment on above: Performed By: #### C BC, BMP, HEPATIC, LIPASE #### [address] GFR/1.73 sq M.predicted MDRD (S/P/Bld) [Vol rate/Area] mL/min/{1.73_m2} Normal [facility] Comment on above: Performed By: #### C BC, BMP, HEPATIC, LIPASE #### [address] Bilirubin Test strip Ql (U)O rdered By: Jeramy Cunningham on 07-31-2023 Bilirubin Ql (U) Negative Negative [facility] Bilirubin.direct [Mass/volum e] in Serum or PlasmaOrdered By: Jeramy Cunningham on 07-31-2023 Bilirubin.direct [Mass/Vol] 0.10 mg/dL 0.03-0.18 [facility] Bilirubin.total [Mass/volume ] in Serum or PlasmaOrdered By: Jeramy Cunningham on 07-31-2023 Bilirubin [Mass/Vol] 0.4 mg/dL 0.3-1.0 [facility] Comment on above: Performed By: #### C BC, BMP, HEPATIC, LIPASE #### [facility] [address] abdomen pelvis w conon CT abdomen pelvis w con [facility] [address] [place] [address] [place] [address] CT Scan Report Signed Patient: Abbey Garcia MR#: [id number] : 1990 Acct:[id number] Age/Sex: 33 / F ADM Date: 07/31/23 Loc: ER Room: Type: [facility] ER Attending Dr: Copies to: Jeramy Cunningham DO Ordering Provider: Jeramy Cunningham DO Date of Service: 07/31/23 CT/CT abdomen pelvis w con: abd pain CT Abdomen and Pelvis withcontrast TECHNIQUE: Axial imaging with 2-D reconstruction.90 cc of Isovue-300. The CT exam was performed using one or more the following dose reduction techniques: Automated exposure control, adjustment of the MA and/or Kv according to patient size, or use of the iterative reconstruction technique. COMPARISON: 07/16/23 History: LEFT abdominal pain and vomiting LIMITATIONS: None LOWER THORAX the medial LEFT basilar atelectasis/pneumon itis. LIVER: Redemonstration of numerous hepatic cysts. GALLBLADDER: Cholecystectomy clips identified. BILE DUCTS: Mild biliary prominence secondary to cholecystectomy. SPLEEN: Splenomegaly PANCREAS: Unremarkable ADRENAL GLANDS: Unremarkable KIDNEYS:Unremarkabl e AORTA: No abdominal aortic aneurysm identified. RETROPERITONEUM: No significant retroperitoneal abnormalities identified. MESENTERY:Unremarka ble SMALL BOWEL: The small bowel loops are nondistended. Gastric bypass changes. J tube unchanged. APPENDIX: Appendectomy changes identified. COLON: Unremarkable URINARY BLADDER: Urinary bladder is unremarkable. REPRODUCTIVE SYSTEM: Reproductive structures are unremarkable. PNEUMOPERITONEUM: None PERITONEAL FLUID:Trace pelvic ascites BONY STRUCTURES: Degenerative change ABDOMINAL WALL: Unremarkable CT/CT abdomen pelvis w con IMPRESSION: LEFT basilar atelectasis/pneumon itis. Nondistended small bowel. No acute abdominal or pelvic findings. Similar numerous hepatic cysts. Impression dictated by: Jason Palomo M.D.07/31/2023 12:28 PM Dictation Location: [place] [address] Transcribed By: [facility] 07/31/23 1228 Dictated By: Jason Palomo DO 07/31/23 1223 Signed By: 07/31/23 1228 Normal [facility] Calcium [Mass/volume] in Ser um or PlasmaOrdered By: Jeramy Cunningham on 07-31-2023 Calcium [Mass/Vol] 8.5 mg/dL Low 8.6-10.3 [facility] Comment on above: Performed By: #### C BC, BMP, HEPATIC, LIPASE #### [address] Carbon dioxide, total [Moles /volume] in Serum or PlasmaOrdered By: Jeramy Cunningham on 07-31-2023 CO2 [Moles/Vol] 26.1 mmol/L 21.0-31.0 [facility] Comment on above: Performed By: #### C BC, BMP, HEPATIC, LIPASE #### [facility] [address] [place] [address] [place] Chloride [Moles/volume] in S elder or PlasmaOrdered By: Jeramy Cunningham on 07-31-2023 Chloride [Moles/Vol] 107 mmol/L 98-107 [facility] Comment on above: Performed By: #### C BC, BMP, HEPATIC, LIPASE #### [facility] [address] [place] [address] [place] Color of Urine by AutoOrdere d By: Jeramy Cunningham on 07-31-2023 Color (U) Colorless Yellow [facility] Comment on above: Order Comment: Name Collection Type:: Clean-Voided Midstream Performed By: #### C BC, BMP, HEPATIC, LIPASE #### [place] [address] [place] Complete Blood Count Auto Di ffon 07-31-2023 Mean Corpuscular HGB Conc 33.8 g/dL Normal 32.0-35.0 [facility] Comment on above: Performed By: #### C BC, BMP, HEPATIC, LIPASE #### [facility] [address] [place] [address] [place] Monocytes/100 WBC (Bld) 14.62 % Normal 0.00-20.00 [facility] Comment on above: Performed By: #### C BC, BMP, HEPATIC, LIPASE #### [facility] [address] NRBC% 0.1 /100{WBC} Normal 0-0.5 [facility] Comment on above: Performed By: #### C BC, BMP, HEPATIC, LIPASE #### [address] Creatinine [Mass/volume] in Serum or PlasmaOrdered By: Jeramy Cunningham on 07-31-2023 Creatinine [Mass/Vol] 0.70 mg/dL 0.60-1.20 [facility] Comment on above: Performed By: #### C BC, BMP, HEPATIC, LIPASE #### [address] Erythrocyte distribution wid th [Ratio] by Automated countOrdered By: Jeramy Cunningham on 07-31-2023 Erythrocyte distribution width (RBC) [Ratio] 14.2 % 11.9-15.3 [facility] Comment on above: Performed By: #### C BC, BMP, HEPATIC, LIPASE #### [place] [address] [place] Erythrocytes [#/volume] in B lood by Automated countOrdered By: Jeramy Cunningham on 07-31-2023 RBC (Bld) [#/Vol] 3.75 10*6/uL 3.60-5.00 [facility] Comment on above: Performed By: #### C BC, BMP, HEPATIC, LIPASE #### [address] Glucose [Mass/volume] in Ser um or PlasmaOrdered By: Jeramy Cunningham on 07-31-2023 Glucose [Mass/Vol] 91 mg/dL 70-100 [facility] Comment on above: ADA recommended refe rence rangeRandom Glucose Reference Range is dependent on time and content of last meal. Glucose of more than 200 mg/dL in a nonstressed, ambulatory subject supports the diagnosis of Diabetes Mellitus. Result Comment: [place] om Glucose Reference Range is dependent on time and content of last meal. Glucose of more than 200 mg/dL in a nonstressed, ambulatory subject supports the diagnosis of Diabetes Mellitus. ADA recommended reference range Performed By: #### C BC, BMP, HEPATIC, LIPASE #### [facility] [address] [place] [address] Glucose [Mass/volume] in Uri ne by Test stripOrdered By: Jeramy Cunningham on 07-31-2023 Glucose Test strip (U) [Mass/Vol] Normal mg/dL Normal [facility] HCG ( test) IA.rapi d Ql (U)Ordered By: Jeramy Cunningham on 07-31-2023 HCG ( test) Ql (U) Negative [facility] HCG,Urineon 07-31-2023 Beta HCG ( test) Ql (U) Negative Normal [facility] Comment on above: Order Comment: Name Collection Type:: Clean-Voided Midstream Result Comment: PERF ORMED BY: [place] [address] PATHOLOGIST SALES OPERATIONS ASSISTANT BAUTISTA BAKER M.D. Performed By: #### C BC, BMP, HEPATIC, LIPASE #### [address] Hematocrit [Volume Fraction] of Blood by Automated countOrdered By: Jeramy Cunningham on 07-31-2023 Hematocrit (Bld) [Volume fraction] 33.2 % Low 34.0-46.4 [facility] Comment on above: Performed By: #### C BC, BMP, HEPATIC, LIPASE #### [address] Hemoglobin Test strip Ql (U) Ordered By: Jeramy Cunningham on 07-31-2023 Hemoglobin Ql (U) Negative Negative [facility] Hemoglobin [Mass/volume] in BloodOrdered By: Jeramy Cunningham on 07-31-2023 Hemoglobin (Bld) [Mass/Vol] 11.2 g/dL Low 11.8-15.4 [facility] Comment on above: Performed By: #### C BC, BMP, HEPATIC, LIPASE #### [facility] [address] Hepatic Panelon 07-31-2023 Albumin [Mass/Vol] 4.0 g/dL Normal 3.5-5.7 [facility] Comment on above: Performed By: #### C BC, BMP, HEPATIC, LIPASE #### [facility] [address] Bilirubin,Indirect 0.3 mg/dL Normal [facility] Comment on above: Performed By: #### C BC, BMP, HEPATIC, LIPASE #### [facility] [address] Bilirubin.indirect [Mass/Vol] 0.10 mg/dL Normal 0.03-0.18 [facility] Comment on above: Performed By: #### C BC, BMP, HEPATIC, LIPASE #### [facility] [address] INR in Platelet poor plasma by Coagulation assayOrdered By: Jeramy Cunningham on 07-31-2023 INR Coag (PPP) [Relative time] 1.1 {INR} [facility] Comment on above: INR Therapeutic Rang e A) Pre- and Peroperative OAT started two weeks before surgery. NOT HIP SURGERY: 1.5 - 2.5 HIP SURGERY: 2 - 3B) Primary and secondary prevention of venous THROMBOSIS: 2 - 3C) Active venous thrombosis, pulmonary embolismand prevention of recurrent venous thrombosis: 2 - 3D) Prevention of arterial thromboembolismincluding patients with mechanical heart valves: 3 - 4.5 Result Comment: INR Therapeutic Range A) Pre- and Peroperative OAT started two weeks before surgery. NOT HIP SURGERY: 1.5 - 2.5 HIP SURGERY: 2 - 3 B) Primary and secondary prevention of venous THROMBOSIS: 2 - 3 C) Active venous thrombosis, pulmonary embolism and prevention of recurrent venous thrombosis: 2 - 3 D) Prevention of arterial thromboembolism including patients with mechanical heart valves: 3 - 4.5 Performed By: #### C BC, BMP, HEPATIC, LIPASE #### [address] Ketones [Presence] in Urine by Test stripOrdered By: Jeramy Cunningham on 07-31-2023 Ketones Ql (U) Negative Negative [facility] Comment on above: Order Comment: Name Collection Type:: Clean-Voided Midstream Performed By: #### C BC, BMP, HEPATIC, LIPASE #### [address] Leukocyte esterase [Presence ] in Urine by Test stripOrdered By: Jeramy Cunningham on 07-31-2023 Leukocyte esterase Test strip Ql (U) Negative Negative [facility] Comment on above: Order Comment: Name Collection Type:: Clean-Voided Midstream Performed By: #### C BC, BMP, HEPATIC, LIPASE #### [address] Leukocytes [#/volume] correc darvin for nucleated erythrocytes in Blood by Automated counOrdered By: Jeramy Cunningham on 07-31-2023 WBC corrected for nucl RBC Auto (Bld) [#/Vol] 7.7 10*3/uL 3.8-11.6 [facility] Leukocytes [#/volume] in Blo od by Automated countOrdered By: Jeramy Cunningham on 07-31-2023 WBC (Bld) [#/Vol] 7.7 10*3/uL 3.8-11.6 [facility] Comment on above: Performed By: #### C BC, BMP, HEPATIC, LIPASE #### [address] Lipase [Enzymatic activity/v olume] in Serum or PlasmaOrdered By: Jeramy Cunningham on 07-31-2023 Lipase [Catalytic activity/Vol] 36.0 U/L 11.0-82.0 [facility] Comment on above: Result Comment: PERF ORMED BY: [place] [address] PATHOLOGIST SALES OPERATIONS ASSISTANT BAUTISTA BAKER M.D. Performed By: #### C BC, BMP, HEPATIC, LIPASE #### [address] [place] [address] [place] Lymphocytes [#/volume] in Bl ood by Automated countOrdered By: Jeramy Cunningham on 07-31-2023 Lymphocytes (Bld) [#/Vol] 0.9 10*3/uL Low 1.00-4.8 [facility] Comment on above: Performed By: #### C BC, BMP, HEPATIC, LIPASE #### [facility] [address] [place] [address] Lymphocytes/100 leukocytes i n Blood by Automated countOrdered By: Jeramy Cunningham on 07-31-2023 Lymphocytes/100 WBC (Bld) 11.2 % . [facility] Comment on above: Performed By: #### C BC, BMP, HEPATIC, LIPASE #### [address] MCH [Entitic mass] by Automa darvin countOrdered By: Jeramy Cunningham on 07-31-2023 MCH (RBC) [Entitic mass] 29.9 pg 24.7-34.3 [facility] Comment on above: Performed By: #### C BC, BMP, HEPATIC, LIPASE #### [address] MCHC Auto (RBC) [Mass/Vol]Or dered By: Jeramy Cunningham on 07-31-2023 MCHC (RBC) [Mass/Vol] 33.8 g/dL 32.0-35.0 [facility] MCV [Entitic volume] by Auto mated countOrdered By: Jeramy Cunningham on 07-31-2023 MCV (RBC) [Entitic vol] 88.6 fL 80-100 [facility] Comment on above: Performed By: #### C BC, BMP, HEPATIC, LIPASE #### [facility] [address] [place] [address] Monocyte distribution width [Entitic volume] in Blood by AutomatedOrdered By: Jeramy Cunningham on 07-31-2023 Monocyte distribution width Auto (Bld) [Entitic vol] 14.62 % 0.00-20.00 [facility] Neutrophils [#/volume] in Bl ood by Automated countOrdered By: Jeramy Cunningham on 07-31-2023 Neutrophils (Bld) [#/Vol] 6.5 10*3/uL 1.8-7.7 [facility] Comment on above: Performed By: #### C BC, BMP, HEPATIC, LIPASE #### [facility] [address] [place] [address] Nitrite Test strip Ql (U)Ord ered By: Jeramy Cunningham on 07-31-2023 Nitrite Ql (U) Negative Negative [facility] No Panel InformationOrdered By: Jeramy Cunningham on 07-31-2023 Estimated GFR (CKD-EPI) > 60.0 mL/Min [facility] Creatinine Clearance (Chem 120.10 [facility] Nucleated erythrocytes [Pres ence] in Blood by Automated countOrdered By: Jeramy Cunningham on 07-31-2023 Nucleated RBC Auto Ql (Bld) 0.1 /100{WBC} 0-0.5 [facility] Partial Thromboplastin Timeo n 07-31-2023 aPTT Coag (Bld) [Time] 27.0 s Normal 25.1-36.5 [facility] Comment on above: Result Comment: A he matocrit value greater than 55% may lead to inaccurate results in coagulation testing. Patients having hematocrit values >55% require a special collection tube for coagulation studies. Please contact the laboratory at [phone] for redraw instructions. PERFORMED BY: [place] [address] PATHOLOGIST SALES OPERATIONS ASSISTANT BAUTISTA BAKER M.D. Performed By: #### C BC, BMP, HEPATIC, LIPASE #### [facility] [address] [place] [address] [place] Platelet mean volume [Entiti c volume] in Blood by Automated countOrdered By: Jeramy Cunningham on 07-31-2023 Platelet mean volume (Bld) [Entitic vol] 8.5 fL 6.3-10.7 [facility] Comment on above: Performed By: #### C BC, BMP, HEPATIC, LIPASE #### [facility] [address] [place] [address] [place] Platelets [#/volume] in Bloo d by Automated countOrdered By: Jeramy Cunningham on 07-31-2023 Platelets (Bld) [#/Vol] 276 10*3/uL 150-450 [facility] Comment on above: Performed By: #### C BC, BMP, HEPATIC, LIPASE #### [address] Potassium [Moles/volume] in Serum or PlasmaOrdered By: Jeramy Cunningham on 07-31-2023 Potassium [Moles/Vol] 3.8 mmol/L 3.5-5.1 [facility] Comment on above: Performed By: #### C BC, BMP, HEPATIC, LIPASE #### [address] Protein Test strip (U) [Mass /Vol]Ordered By: Jeramy Cunningham on 07-31-2023 Protein (U) [Mass/Vol] Negative Negative [facility] Protein [Mass/volume] in Ser um or PlasmaOrdered By: Jeramy Cunningham on 07-31-2023 Protein [Mass/Vol] 6.7 g/dL 6.4-8.9 [facility] Comment on above: Performed By: #### C BC, BMP, HEPATIC, LIPASE #### [address] Prothrombin time (PT)Ordered By: Jeramy Cunningham on 07-31-2023 PT Coag (PPP) [Time] 12.3 s 9.0-12.9 [facility] Comment on above: A hematocrit value g reater than 55% may lead to inaccurate results in coagulation testing. Patients having hematocrit values >55% require a special collection tube for coagulation studies. Please contact the laboratory at [phone] for redraw instructions. Result Comment: A he matocrit value greater than 55% may lead to inaccurate results in coagulation testing. Patients having hematocrit values >55% require a special collection tube for coagulation studies. Please contact the laboratory at [phone] for redraw instructions. Performed By: #### C BC, BMP, HEPATIC, LIPASE #### [address] Serum globulin measurement b y calculation (mass/volume)Ordered By: Jeramy Cunningham on 07-31-2023 Globulin (S) [Mass/Vol] 2.7 g/dL [facility] Comment on above: Performed By: #### C BC, BMP, HEPATIC, LIPASE #### [facility] [address] [place] [address] Serum or plasma albumin/glob ulin mass ratioOrdered By: Jeramy Cunningham on 07-31-2023 Albumin/Globulin [Mass ratio] 1.5 {ratio} [facility] Comment on above: Performed By: #### C BC, BMP, HEPATIC, LIPASE #### [facility] [address] [place] [address] Serum or plasma anion gap de terminationOrdered By: Jeramy Cunningham on 07-31-2023 Anion gap [Moles/Vol] 10.7 mmol/L 6.0-15.0 [facility] Comment on above: Performed By: #### C BC, BMP, HEPATIC, LIPASE #### [facility] [address] [place] [address] Serum or plasma non-glucuron idated bilirubin measurement (mass/volume)Ordered By: Jeramy Cunningham on 07-31-2023 Bilirubin.indirect [Mass/Vol] 0.3 mg/dL [facility] Sodium [Moles/volume] in Ser um or PlasmaOrdered By: Jeramy Cunningham on 07-31-2023 Sodium [Moles/Vol] 140 mmol/L 136-145 [facility] Comment on above: Performed By: #### C BC, BMP, HEPATIC, LIPASE #### [facility] [address] [place] [address] Specific gravity Test strip (U) [Rel density]Ordered By: Jeramy Cunningham on 07-31-2023 Specific gravity (U) [Rel density] 1.006 1.001-1.030 [facility] Urea nitrogen [Mass/volume] in Serum or PlasmaOrdered By: Jeramy Cunningham on 07-31-2023 Urea nitrogen [Mass/Vol] 16 mg/dL 7-25 [facility] Comment on above: Performed By: #### C BC, BMP, HEPATIC, LIPASE #### [address] Urinalysison 07-31-2023 Bilirubin,Urine Negative Normal Negative [facility] Comment on above: Order Comment: Name Collection Type:: Clean-Voided Midstream Performed By: #### C BC, BMP, HEPATIC, LIPASE #### [address] Glucose Ql (U) Normal Normal Normal [facility] Comment on above: Order Comment: Name Collection Type:: Clean-Voided Midstream Performed By: #### C BC, BMP, HEPATIC, LIPASE #### [address] Nitrite,Urine Negative Normal Negative [facility] Comment on above: Order Comment: Name Collection Type:: Clean-Voided Midstream Performed By: #### C BC, BMP, HEPATIC, LIPASE #### [address] Occult Blood,Urine Negative Normal Negative [facility] Comment on above: Order Comment: Name Collection Type:: Clean-Voided Midstream Performed By: #### C BC, BMP, HEPATIC, LIPASE #### [address] Protein,Urine Negative Normal Negative [facility] Comment on above: Order Comment: Name Collection Type:: Clean-Voided Midstream Performed By: #### C BC, BMP, HEPATIC, LIPASE #### [address] Specificy [place],Urine 1.006 Normal 1.001-1.030 [facility] Comment on above: Order Comment: Name Collection Type:: Clean-Voided Midstream Performed By: #### C BC, BMP, HEPATIC, LIPASE #### [address] Urobilinogen,Urine Normal Normal Normal [facility] Comment on above: Order Comment: Name Collection Type:: Clean-Voided Midstream Performed By: #### C BC, BMP, HEPATIC, LIPASE #### [address] [place] [address] [place] Urine appearanceOrdered By: Jeramy Cunningham on 07-31-2023 Appearance (U) Clear Clear [facility] Comment on above: Order Comment: Name Collection Type:: Clean-Voided Midstream Performed By: #### C BC, BMP, HEPATIC, LIPASE #### [address] Urobilinogen Test strip (U) [Mass/Vol]Ordered By: Jeramy Cunningham on 07-31-2023 Urobilinogen (U) [Mass/Vol] Normal mg/dL Normal [facility] pH of Urine by Test stripOrd ered By: Jeramy Cunningham on 07-31-2023 pH (U) 8.0 [pH] 5.0-9.0 [facility] Comment on above: Order Comment: Name Collection Type:: Clean-Voided Midstream Performed By: #### C BC, BMP, HEPATIC, LIPASE #### [address] CBC W Auto Differential pane l (Bld)on 07-30-2023 Basophils (Bld) [#/Vol] 0.04 10*3/uL Normal <0.11 [facility] Comment on above: Order Comment: Speci men Type: BLOOD SPECIMENOrdering Facility: [facility] Address: [address] [place] [address] Performed By: #### 5 7021-8 ####[facility] LABCLIA [id number] [place] [address] [place] Basophils/100 WBC (Bld) 0.4 % Normal [facility] Comment on above: Order Comment: Speci men Type: BLOOD SPECIMENOrdering Facility: [facility] Address: [address] [place] [address] Performed By: #### 5 7021-8 ####[facility] LABCLIA [id number] [place] [address] [place] Differential cell count method Nom (Bld) Auto Normal [facility] Comment on above: Order Comment: Speci men Type: BLOOD SPECIMENOrdering Facility: [facility] Address: [address] [place] [address] Performed By: #### 5 7021-8 ####[facility] LABCLIA [id number] [place] [address] [place] Eosinophils (Bld) [#/Vol] 0.05 10*3/uL Normal <0.46 [facility] Comment on above: Order Comment: Speci men Type: BLOOD SPECIMENOrdering Facility: [facility] Address: [address] [place] [address] Performed By: #### 5 7021-8 ####[facility] LABCLIA [id number] [place] [address] [place] Eosinophils/100 WBC (Bld) 0.5 % Normal [facility] Comment on above: Order Comment: Speci men Type: BLOOD SPECIMENOrdering Facility: [facility] Address: [address] [place] [address] Performed By: #### 5 7021-8 ####[facility] LABCLIA [id number] [place] [address] [place] Erythrocyte distribution width (RBC) [Ratio] 13.0 % Normal 11.5-15.0 [facility] Comment on above: Order Comment: Speci men Type: BLOOD SPECIMENOrdering Facility: [facility] Address: [address] [place] [address] Performed By: #### 5 7021-8 ####[facility] LABCLIA [id number] [place] [address] [place] Hematocrit (Bld) [Volume fraction] 33.7 % Low 36.0-46.0 [facility] Comment on above: Order Comment: Speci men Type: BLOOD SPECIMENOrdering Facility: [facility] Address: [address] [place] [address] Performed By: #### 5 7021-8 ####[facility] LABCLIA [id number] [place] [address] [place] Hemoglobin (Bld) [Mass/Vol] 11.1 g/dL Low 11.5-15.5 [facility] Comment on above: Order Comment: Speci men Type: BLOOD SPECIMENOrdering Facility: [facility] Address: [address] [place] [address] Performed By: #### 5 7021-8 ####[facility] LABCLIA [id number] [place] [address] [place] Immature granulocytes (Bld) [#/Vol] 0.03 10*3/uL Normal <0.10 [facility] Comment on above: Order Comment: Speci men Type: BLOOD SPECIMENOrdering Facility: [facility] Address: [address] [place] [address] Performed By: #### 5 7021-8 ####[facility] LABCLIA [id number] [place] [address] [place] Immature granulocytes/100 WBC (Bld) 0.3 % Normal [facility] Comment on above: Order Comment: Speci men Type: BLOOD SPECIMENOrdering Facility: [facility] Address: [address] [place] [address] Performed By: #### 5 7021-8 ####[facility] LABCLIA [id number] [place] [address] [place] Lymphocytes (Bld) [#/Vol] 2.10 10*3/uL Normal 1.00-4.00 [facility] Comment on above: Order Comment: Speci men Type: BLOOD SPECIMENOrdering Facility: [facility] Address: [address] [place] [address] Performed By: #### 5 7021-8 ####[facility] LABCLIA [id number] [place] [address] [place] Lymphocytes/100 WBC (Bld) 22.0 % Normal [facility] Comment on above: Order Comment: Speci men Type: BLOOD SPECIMENOrdering Facility: [facility] Address: [address] [place] [address] Performed By: #### 5 7021-8 ####[facility] LABIA [id number] [place] [address] [place] MCH (RBC) [Entitic mass] 29.8 pg Normal 26.0-34.0 [facility] Comment on above: Order Comment: Speci men Type: BLOOD SPECIMENOrdering Facility: [facility] Address: [address] [place] [address] Performed By: #### 5 7021-8 ####[facility] [id number] [place] [address] [place] MCHC (RBC) [Mass/Vol] 32.9 g/dL Normal 30.5-36.0 [facility] Comment on above: Order Comment: Speci men Type: BLOOD SPECIMENOrdering Facility: [facility] Address: [address] [place] [address] Performed By: #### 5 7021-8 ####[facility] [id number] [place] [address] [place] MCV (RBC) [Entitic vol] 90.3 fL Normal 80.0-100.0 [facility] Comment on above: Order Comment: Speci men Type: BLOOD SPECIMENOrdering Facility: [facility] Address: [address] [place] [address] Performed By: #### 5 7021-8 ####[facility] [id number] [place] [address] [place] Monocytes (Bld) [#/Vol] 0.57 10*3/uL Normal <0.87 [facility] Comment on above: Order Comment: Speci men Type: BLOOD SPECIMENOrdering Facility: [facility] Address: [address] [place] [address] Performed By: #### 5 7021-8 ####[facility] LABCLIA [id number] [place] [address] [place] Monocytes/100 WBC (Bld) 6.0 % Normal [facility] Comment on above: Order Comment: Speci men Type: BLOOD SPECIMENOrdering Facility: [facility] Address: [address] [place] [address] Performed By: #### 5 7021-8 ####[facility] LABCLIA [id number] [place] [address] [place] Neutrophils (Bld) [#/Vol] 6.74 10*3/uL Normal 1.45-7.50 [facility] Comment on above: Order Comment: Speci men Type: BLOOD SPECIMENOrdering Facility: [facility] Address: [address] [place] [address] Performed By: #### 5 7021-8 ####[facility] LABIA [id number] [place] [address] [place] Neutrophils/100 WBC (Bld) 70.8 % Normal [facility] Comment on above: Order Comment: Speci men Type: BLOOD SPECIMENOrdering Facility: [facility] Address: [address] [place] [address] Performed By: #### 5 7021-8 ####[facility] LABIA [id number] [place] [address] [place] Nucleated RBC (Bld) [#/Vol] 10*3/uL Normal <0.01 [facility] Comment on above: Order Comment: Speci men Type: BLOOD SPECIMENOrdering Facility: [facility] Address: [address] [place] [address] Performed By: #### 5 7021-8 ####[facility] LABCLIA [id number] [place] [address] [place] Nucleated RBC/100 WBC (Bld) [Ratio] 0.0 /100 WBC Normal [facility] Comment on above: Order Comment: Speci men Type: BLOOD SPECIMENOrdering Facility: [facility] Address: [address] [place] [address] Performed By: #### 5 7021-8 ####[facility] LABCLIA [id number] [place] [address] [place] Platelet mean volume (Bld) [Entitic vol] 10.3 fL Normal 9.0-12.7 [facility] Comment on above: Order Comment: Speci men Type: BLOOD SPECIMENOrdering Facility: [facility] Address: [address] [place] [address] Performed By: #### 5 7021-8 ####[facility] LABIA [id number] [place] [address] [place] Platelets (Bld) [#/Vol] 258 10*3/uL Normal 150-400 [facility] Comment on above: Order Comment: Speci men Type: BLOOD SPECIMENOrdering Facility: [facility] Address: [address] [place] [address] Performed By: #### 5 7021-8 ####[facility] LABIA [id number] [place] [address] [place] RBC (Bld) [#/Vol] 3.73 10*6/uL Low 3.90-5.20 [facility] Comment on above: Order Comment: Speci men Type: BLOOD SPECIMENOrdering Facility: [facility] Address: [address] [place] [address] Performed By: #### 5 7021-8 ####[facility] LABIA [id number] [place] [address] [place] WBC (Bld) [#/Vol] 9.53 10*3/uL Normal 3.70-11.00 [facility] Comment on above: Order Comment: Speci men Type: BLOOD SPECIMENOrdering Facility: [facility] Address: [address] [place] [address] Performed By: #### 5 7021-8 ####[facility] LABCLIA [id number] [place] [address] [place] [address] [facility] Comprehensive metabolic 2000 panelon 07-30-2023 Albumin [Mass/Vol] 4.0 g/dL Normal 3.9-4.9 [facility] Comment on above: Order Comment: Speci men Type: BLOOD SPECIMENOrdering Facility: [facility] Address: [address] [place] [address] Performed By: #### 2 4323-8 ####[facility] LABIA [id number] [place] [address] [place] ALP [Catalytic activity/Vol] 64 U/L Normal 34-123 [facility] Comment on above: Order Comment: Speci men Type: BLOOD SPECIMENOrdering Facility: [facility] Address: [address] [place] [address] Performed By: #### 2 4323-8 ####[facility] LABIA [id number] [place] [address] [place] ALT [Catalytic activity/Vol] 30 U/L Normal 7-38 [facility] Comment on above: Order Comment: Speci men Type: BLOOD SPECIMENOrdering Facility: [facility] Address: [address] [place] [address] Performed By: #### 2 4323-8 ####[facility] LABCLIA [id number] [place] [id number] [place] Anion gap [Moles/Vol] 12 mmol/L Normal 8-15 [facility] Comment on above: Order Comment: Speci men Type: BLOOD SPECIMENOrdering Facility: [facility] Address: [address] [place] [address] Performed By: #### 2 4323-8 ####[facility] LABCLIA [id number] [place] [address] [place] AST [Catalytic activity/Vol] 30 U/L Normal 13-35 [facility] Comment on above: Order Comment: Speci men Type: BLOOD SPECIMENOrdering Facility: [facility] Address: [address] [place] [address] Performed By: #### 2 4323-8 ####[facility] LABCLIA [id number] [place] [address] [place] Bilirubin [Mass/Vol] 0.2 mg/dL Normal 0.2-1.3 [facility] Comment on above: Order Comment: Speci men Type: BLOOD SPECIMENOrdering Facility: [facility] Address: [address] [place] [address] Performed By: #### 2 4323-8 ####[facility] LABCLIA [id number] [place] [address] [place] Calcium [Mass/Vol] 8.7 mg/dL Normal 8.5-10.2 [facility] Comment on above: Order Comment: Speci men Type: BLOOD SPECIMENOrdering Facility: [facility] Address: [address] [place] [address] Performed By: #### 2 4323-8 ####[facility] LABCLIA [id number] [place] [address] [place] Chloride [Moles/Vol] 105 mmol/L Normal 98-107 [facility] Comment on above: Order Comment: Speci men Type: BLOOD SPECIMENOrdering Facility: [facility] Address: [address] [place] [address] Performed By: #### 2 4323-8 ####[facility] LABCLIA [id number] [place] [address] [place] CO2 [Moles/Vol] 22 mmol/L Normal 22-30 [facility] Comment on above: Order Comment: Speci men Type: BLOOD SPECIMENOrdering Facility: [facility] Address: [address] [place] [address] Performed By: #### 2 4323-8 ####[facility] LABIA [id number] [address] STATES OF [facility] Creatinine [Mass/Vol] 0.59 mg/dL Normal 0.58-0.96 [facility] Comment on above: Order Comment: Speci men Type: BLOOD SPECIMENOrdering Facility: [facility] Address: [address] [place] [address] Performed By: #### 2 4323-8 ####[facility] LABIA [id number] [address] [facility] Creatinine and Glomerular filtration rate.predicted panel (S/P/Bld) 121 mL/min/1.73m??? Normal >=60 [facility] Comment on above: Order Comment: Geraldo marrero Type: BLOOD SPECIMENOrdering Facility: [facility] Address: [address] [place] [address] Result Comment: Jessica mated Glomerular Filtration Rate [...] actual GFR. Performed By: #### 2 4323-8 ####[facility] LABIA [id number] [place] [address] [place] Glucose [Mass/Vol] 88 mg/dL Normal 74-99 [facility] Comment on above: Order Comment: Lyssai men Type: BLOOD SPECIMENOrdering Facility: [facility] Address: [address] [place] [address] Result Comment: The [place] Diabetes Association (ADA) provides guidance for cutoff [...] Standards of Medical Care in Diabetes 2016, [place] Diabetes Association. Diabetes Care. 2016.39(Suppl 1). Performed By: #### 2 4323-8 ####[facility] LABCLIA [id number] [place] [address] [place] Potassium [Moles/Vol] 4.0 mmol/L Normal 3.7-5.1 [facility] Comment on above: Order Comment: Speci men Type: BLOOD SPECIMENOrdering Facility: [facility] Address: [address] [place] [address] Performed By: #### 2 4323-8 ####[facility] LABCLIA [id number] [place] [address] [place] Protein [Mass/Vol] 6.5 g/dL Normal 6.3-8.0 [facility] Comment on above: Order Comment: Speci men Type: BLOOD SPECIMENOrdering Facility: [facility] Address: [address] [place] [address] Performed By: #### 2 4323-8 ####[facility] LABCLIA [id number] [place] [address] [place] Sodium [Moles/Vol] 139 mmol/L Normal 136-144 [facility] Comment on above: Order Comment: Speci men Type: BLOOD SPECIMENOrdering Facility: [facility] Address: [address] [place] [address] Performed By: #### 2 4323-8 ####[facility] LABCLIA [id number] [place] [address] [place] Urea nitrogen [Mass/Vol] 13 mg/dL Normal 7-21 [facility] Comment on above: Order Comment: Speci men Type: BLOOD SPECIMENOrdering Facility: [facility] Address: [address] [place] [address] Performed By: #### 2 4323-8 ####[facility] LABCLIA [id number] [facility]STITUTEJose [address] [address] [place] Basic metabolic 2000 panelon 07-20-2023 Anion gap [Moles/Vol] 14 mmol/L Normal 9-18 [facility] Comment on above: Order Comment: Speci men Type: BLOOD SPECIMENOrdering Facility: [facility] Address: [address] [place] [address] Performed By: #### 2 777-1, 40517-0, ####[facility]ORY[facility] [id number] [place] [id number] [place] Calcium [Mass/Vol] 8.9 mg/dL Normal 8.5-10.2 [facility] Comment on above: Order Comment: Speci men Type: BLOOD SPECIMENOrdering Facility: [facility] Address: [address] [place] [address] Performed By: #### 2 777-1, , ####[facility]ORYCLIA [id number] [place] [id number] [place] Chloride [Moles/Vol] 110 mmol/L High 97-105 [facility] Comment on above: Order Comment: Speci men Type: BLOOD SPECIMENOrdering Facility: [facility] Address: [address] [place] [address] Performed By: #### 2 777-1, 47340-4, ####[facility]ORYCLIA [id number] [place] [id number] [place] CO2 [Moles/Vol] 19 mmol/L Low 22-30 [facility] Comment on above: Order Comment: Speci men Type: BLOOD SPECIMENOrdering Facility: [facility] Address: [address] [place] [address] Performed By: #### 2 777-1, 66170-7 ####[facility]ORYCLIA [id number] [place] [address] [place] Creatinine [Mass/Vol] 0.76 mg/dL Normal 0.58-0.96 [facility] Comment on above: Order Comment: Geraldo marrero Type: BLOOD SPECIMENOrdering Facility: [facility] Address: [address] [place] [address] Performed By: #### 2 777-1, 98784-0, ####[facility]ORYCLIA [id number] [place] [id number] [facility] Creatinine and Glomerular filtration rate.predicted panel (S/P/Bld) 106 mL/min/1.73m??? Normal >=60 [facility] Comment on above: Order Comment: Geraldo marrero Type: BLOOD SPECIMENOrdering Facility: [facility] Address: [address] [place] [address] Result Comment: Jessica mated Glomerular Filtration Rate [...] actual GFR. Performed By: #### 2 777-1, 33291-9, ####[facility]ORYCL[facility] [id number] [place] [id number] [place] Glucose [Mass/Vol] 97 mg/dL Normal 74-99 [facility] Comment on above: Order Comment: Geraldo marrero Type: BLOOD SPECIMENOrdering Facility: [facility] Address: [address] [place] [address] Result Comment: The [place] Diabetes Association (ADA) provides guidance for cutoff [...] Standards of Medical Care in Diabetes 2016, [place] [employer]. Diabetes Care. 2016.39(Suppl 1). Performed By: #### 2 777-1, 72008-6, ####[facility]ORYCLIA [id number] [place] [id number] [place] Potassium [Moles/Vol] 4.0 mmol/L Normal 3.7-5.1 [facility] Comment on above: Order Comment: Geraldo marrero Type: BLOOD SPECIMENOrdering Facility: [facility] Address: [address] [place] [address] Performed By: #### 2 777-1, , ####[facility]ORYCLIA [id number] [place] [id number] [place] Sodium [Moles/Vol] 143 mmol/L Normal 136-144 [facility] Comment on above: Order Comment: Geraldo marrero Type: BLOOD SPECIMENOrdering Facility: [facility] Address: [address] [place] [address] Performed By: #### 2 777-1, , ####[facility]ORYCLIA [id number] [place] [id number] [place] Urea nitrogen [Mass/Vol] 8 mg/dL Normal 7-21 [facility] Comment on above: Order Comment: Speci men Type: BLOOD SPECIMENOrdering Facility: [facility] Address: [address] [place] [address] Performed By: #### 2 777-1, , ####[facility]ATORYCLIA [id number] [place] [id number] [place] CASE MANAGEMon 07-20-2023 CASE MANAGEM Normal [facility] CBC W Auto Differential pane l (Bld)on 07-20-2023 Basophils (Bld) [#/Vol] 10*3/uL Normal <0.11 [facility] Comment on above: Order Comment: Speci men Type: BLOOD SPECIMENOrdering Facility: [facility] Address: [address] [place] [address] Performed By: #### 5 7021-8 ####[facility] LABORATORYCLIA [id number] [place] [address] [place] Basophils/100 WBC (Bld) 0.4 % Normal [facility] Comment on above: Order Comment: Speci men Type: BLOOD SPECIMENOrdering Facility: [facility] Address: [address] [place] [address] Performed By: #### 5 7021-8 ####[facility] LABORATORYCLIA [id number] [place] [address] [place] Differential cell count method Nom (Bld) Auto Normal [facility] Comment on above: Order Comment: Speci men Type: BLOOD SPECIMENOrdering Facility: [facility] Address: [address] [place] [address] Performed By: #### 5 7021-8 ####[facility] LABORATORYCLIA [id number] [place] [address] [place] Eosinophils (Bld) [#/Vol] 0.19 10*3/uL Normal <0.46 [facility] Comment on above: Order Comment: Speci men Type: BLOOD SPECIMENOrdering Facility: [facility] Address: [address] [place] [address] Performed By: #### 5 7021-8 ####[facility] LABORATORYCLIA [id number] [place] [address] [place] Eosinophils/100 WBC (Bld) 3.8 % Normal [facility] Comment on above: Order Comment: Speci men Type: BLOOD SPECIMENOrdering Facility: [facility] Address: [address] [place] [address] Performed By: #### 5 7021-8 ####[facility] LABORATORYCLIA [id number] [place] [address] [place] Erythrocyte distribution width (RBC) [Ratio] 12.8 % Normal 11.5-15.0 [facility] Comment on above: Order Comment: Speci men Type: BLOOD SPECIMENOrdering Facility: [facility] Address: [address] [place] [address] Performed By: #### 5 7021-8 ####[facility] LABORATORYCLIA [id number] [place] [address] [place] Hematocrit (Bld) [Volume fraction] 31.6 % Low 36.0-46.0 [facility] Comment on above: Order Comment: Speci men Type: BLOOD SPECIMENOrdering Facility: [facility] Address: [address] [place] [address] Performed By: #### 5 7021-8 ####[facility] LABORATORYCLIA [id number] [place] [address] [place] Hemoglobin (Bld) [Mass/Vol] 10.5 g/dL Low 11.5-15.5 [facility] Comment on above: Order Comment: Speci men Type: BLOOD SPECIMENOrdering Facility: [facility] Address: [address] [place] [address] Performed By: #### 5 7021-8 ####[facility] LABORATORYCLIA [id number] [place] [address] [place] [facility] [place] Immature granulocytes (Bld) [#/Vol] 10*3/uL Normal <0.10 [facility] Comment on above: Order Comment: Speci men Type: BLOOD SPECIMENOrdering Facility: [facility] Address: [address] [place] [address] Performed By: #### 5 7021-8 ####[facility] LABORATORYCLIA [id number] [place] [address] [place] Immature granulocytes/100 WBC (Bld) 0.2 % Normal [facility] Comment on above: Order Comment: Speci men Type: BLOOD SPECIMENOrdering Facility: [facility] Address: [address] [place] [address] Performed By: #### 5 7021-8 ####[facility] LABORATORYCLIA [id number] [place] [address] [place] Lymphocytes (Bld) [#/Vol] 0.99 10*3/uL Low 1.00-4.00 [facility] Comment on above: Order Comment: Speci men Type: BLOOD SPECIMENOrdering Facility: [facility] Address: [address] [place] [address] Performed By: #### 5 7021-8 ####[facility] LABORATORYCLIA [id number] [place] [address] [place] Lymphocytes/100 WBC (Bld) 19.8 % Normal [facility] Comment on above: Order Comment: Speci men Type: BLOOD SPECIMENOrdering Facility: [facility] Address: [address] [place] [address] Performed By: #### 5 7021-8 ####[facility] LABORATORYCLIA [id number] [place] [address] [place] MCH (RBC) [Entitic mass] 30.2 pg Normal 26.0-34.0 [facility] Comment on above: Order Comment: Speci men Type: BLOOD SPECIMENOrdering Facility: [facility] Address: [address] [place] [address] Performed By: #### 5 7021-8 ####[facility] LABORATORYCLIA [id number] [place] [address] [place] MCHC (RBC) [Mass/Vol] 33.2 g/dL Normal 30.5-36.0 [facility] Comment on above: Order Comment: Speci men Type: BLOOD SPECIMENOrdering Facility: [facility] Address: [address] [place] [address] Performed By: #### 5 7021-8 ####[facility] LABORATORYCLIA [id number] [address] [place] MCV (RBC) [Entitic vol] 90.8 fL Normal 80.0-100.0 [facility] Comment on above: Order Comment: Speci men Type: BLOOD SPECIMENOrdering Facility: [facility] Address: [address] [place] [address] Performed By: #### 5 7021-8 ####[facility] LABORATORYCLIA [id number] [place] [id number] [place] Monocytes (Bld) [#/Vol] 0.32 10*3/uL Normal <0.87 [facility] Comment on above: Order Comment: Speci men Type: BLOOD SPECIMENOrdering Facility: [facility] Address: [address] [place] [address] Performed By: #### 5 7021-8 ####[facility] LABORATORYCLIA [id number] [place] [id number] [place] Monocytes/100 WBC (Bld) 6.4 % Normal [facility] Comment on above: Order Comment: Speci men Type: BLOOD SPECIMENOrdering Facility: [facility] Address: [address] [place] [address] Performed By: #### 5 7021-8 ####[facility] LABORATORYCLIA [id number] [place] [address] [place] Neutrophils (Bld) [#/Vol] 3.47 10*3/uL Normal 1.45-7.50 [facility] Comment on above: Order Comment: Speci men Type: BLOOD SPECIMENOrdering Facility: [facility] Address: [address] [place] [address] Performed By: #### 5 7021-8 ####[facility] LABORATORYCLIA [id number] [place] [id number] [place] Neutrophils/100 WBC (Bld) 69.4 % Normal [facility] Comment on above: Order Comment: Speci men Type: BLOOD SPECIMENOrdering Facility: [facility] Address: [address] [place] [address] Performed By: #### 5 7021-8 ####[facility] LABORATORYCLIA [id number] [place] [id number] [place] Nucleated RBC (Bld) [#/Vol] 10*3/uL Normal <0.01 [facility] Comment on above: Order Comment: Speci men Type: BLOOD SPECIMENOrdering Facility: [facility] Address: [address] [place] [address] Performed By: #### 5 7021-8 ####[facility] LABORATORYCLIA [id number] [place] [id number] [place] Nucleated RBC/100 WBC (Bld) [Ratio] 0.0 /100 WBC Normal [facility] Comment on above: Order Comment: Speci men Type: BLOOD SPECIMENOrdering Facility: [facility] Address: [address] [place] [address] Performed By: #### 5 7021-8 ####[facility] LABORATORYCLIA [id number] [place] [address] [place] Platelet mean volume (Bld) [Entitic vol] 11.1 fL Normal 9.0-12.7 [facility] Comment on above: Order Comment: Speci men Type: BLOOD SPECIMENOrdering Facility: [facility] Address: [address] [place] [address] Performed By: #### 5 7021-8 ####[facility] LABORATORYCLIA [id number] [place] [address] [place] Platelets (Bld) [#/Vol] 225 10*3/uL Normal 150-400 [facility] Comment on above: Order Comment: Speci men Type: BLOOD SPECIMENOrdering Facility: [facility] Address: [address] [place] [address] Performed By: #### 5 7021-8 ####[facility] LABORATORYCLIA [id number] [place] [address] [place] RBC (Bld) [#/Vol] 3.48 10*6/uL Low 3.90-5.20 [facility] Comment on above: Order Comment: Speci men Type: BLOOD SPECIMENOrdering Facility: [facility] Address: [address] [place] [address] Performed By: #### 5 7021-8 ####[facility] LABORATORYCLIA [id number] [place] [id number] [place] WBC (Bld) [#/Vol] 5.00 10*3/uL Normal 3.70-11.00 [facility] Comment on above: Order Comment: Speci men Type: BLOOD SPECIMENOrdering Facility: [facility] Address: [address] [place], [place] [address] [id number] Performed By: #### 5 7021-8 ####[facility] LABORATORYCLIA [id number] [place] [address] [place] CNDSon 07-20-2023 CNDS Normal [facility] Magnesium [Mass/Vol] 2.1 mg/dL Normal 1.7-2.3 [facility] Comment on above: Order Comment: Speci men Type: BLOOD SPECIMENOrdering Facility: [facility] Address: [address] [place] [address] [place] [id number] Performed By: #### 2 777-1, 99909-3, ####[facility] LABORATORYCLIA [id number] [place] [address] [place] NURSING PROGon 07-20-2023 NURSING PROG Normal [facility] Phosphate [facility] Phosphate [Mass/Vol] 4.2 mg/dL Normal 2.7-4.8 [facility] Comment on above: Order Comment: Speci men Type: BLOOD SPECIMENOrdering Facility: [facility] Address: [facility] [place] [address] Performed By: #### 2 777-1, , ####[facility] LABORATORYCLIA [id number] [place] [address] [place] Basic metabolic 2000 panelon 07-19-2023 Anion gap [Moles/Vol] 9 mmol/L Normal 9-18 [facility] Comment on above: Order Comment: Speci men Type: BLOOD SPECIMENOrdering Facility: [facility] Address: [address] [place], [place] [address] [address] Performed By: #### 2 777-1, 47387-9, ####[facility] LABORATORYCLIA [id number] [place] [id number] [place] Calcium [Mass/Vol] 8.7 mg/dL Normal 8.5-10.2 [facility] Comment on above: Order Comment: Speci men Type: BLOOD SPECIMENOrdering Facility: [facility] Address: [address] [place] [address] Performed By: #### 2 777-1, 96132-4, ####[facility] LABORATORYCLIA [id number] [place] [address] [place] Chloride [Moles/Vol] 107 mmol/L High 97-105 [facility] Comment on above: Order Comment: Speci men Type: BLOOD SPECIMENOrdering Facility: [facility] Address: [address] [place] [address] Performed By: #### 2 777-1, 49400-5, ####[facility] LABORATORYCLIA [id number] [place] [address] [place] CO2 [Moles/Vol] 23 mmol/L Normal 22-30 [facility] Comment on above: Order Comment: Speci men Type: BLOOD SPECIMENOrdering Facility: [facility] Address: [address] [place] [address] Performed By: #### 2 777-1, , ####[facility] LABORATORYCLIA [id number] [place] [address] [place] Creatinine [Mass/Vol] 0.75 mg/dL Normal 0.58-0.96 [facility] Comment on above: Order Comment: Speci men Type: BLOOD SPECIMENOrdering Facility: [facility] Address: [address] [place] [address] Performed By: #### 2 777-1, , ####[facility] LABORATORYCLIA [id number] [place] [address] [facility] [place] Creatinine and Glomerular filtration rate.predicted panel (S/P/Bld) 107 mL/min/1.73m??? Normal >=60 [facility] Comment on above: Order Comment: Speci men Type: BLOOD SPECIMENOrdering Facility: [facility] Address: [address] [place] [address] Result Comment: Jessica mated Glomerular Filtration Rate [...] actual GFR. Performed By: #### 2 777-1, 88895-1, ####[facility] LABORATORYCLIA [id number] [place] [address] [place] Glucose [Mass/Vol] 81 mg/dL Normal 74-99 [facility] Comment on above: Order Comment: Geraldo marrero Type: BLOOD SPECIMENOrdering Facility: [facility] Address: [address] [place] [address] Result Comment: The [place] Diabetes Association (ADA) provides guidance for cutoff [...] Standards of Medical Care in Diabetes 2016, [place] Diabetes Association. Diabetes Care. 2016.39(Suppl 1). Performed By: #### 2 777-1, , ####[facility] LABORATORYCLIA [id number] [place] [address] [place] Potassium [Moles/Vol] 3.9 mmol/L Normal 3.7-5.1 [facility] Comment on above: Order Comment: Geraldo marrero Type: BLOOD SPECIMENOrdering Facility: [facility] Address: [address] [place] [address] Performed By: #### 2 777-1, 78185-1, ####[facility] LABORATORYCLIA [id number] [place] [address] [place] Sodium [Moles/Vol] 139 mmol/L Normal 136-144 [facility] Comment on above: Order Comment: Speci men Type: BLOOD SPECIMENOrdering Facility: [facility] Address: [address] [place] [address] Performed By: #### 2 777-1, 82240-8, ####[facility] LABORATORYCLIA [id number] [place] [address] [place] Urea nitrogen [Mass/Vol] 6 mg/dL Low 7-21 [facility] Comment on above: Order Comment: Speci men Type: BLOOD SPECIMENOrdering Facility: [facility] Address: [address] [place] [address] Performed By: #### 2 777-1, , ####[facility] LABORATORYCLIA [id number] [place] [address] [place] CASE MGT INIT ASSESon 2023 CASE MGT INIT ASSES Normal [facility] CBC W Auto Differential pane l (Bld)on 07-19-2023 Basophils (Bld) [#/Vol] 0.04 10*3/uL Normal <0.11 [facility] Comment on above: Order Comment: Speci men Type: BLOOD SPECIMENOrdering Facility: [facility] Address: [address] [place] [address] Performed By: #### 5 7021-8 ####[facility] LABORATORYCLIA [id number] [place] [address] [place] Basophils/100 WBC (Bld) 1.3 % Normal [facility] Comment on above: Order Comment: Speci men Type: BLOOD SPECIMENOrdering Facility: [facility] Address: [address] [place] [address] Performed By: #### 5 7021-8 ####[facility] LABORATORYCLIA [id number] [place] [id number] [place] Differential cell count method Nom (Bld) Auto Normal [facility] Comment on above: Order Comment: Speci men Type: BLOOD SPECIMENOrdering Facility: [facility] Address: [address] [place], [place] [address] Performed By: #### 5 7021-8 ####[facility] LABORATORYCLIA [id number] [place] [address] [place] Eosinophils (Bld) [#/Vol] 0.28 10*3/uL Normal <0.46 [facility] Comment on above: Order Comment: Speci men Type: BLOOD SPECIMENOrdering Facility: [facility] Address: [address] [place] [address] Performed By: #### 5 7021-8 ####[facility] LABORATORYCLIA [id number] [place] [address] [place] Eosinophils/100 WBC (Bld) 9.1 % Normal [facility] Comment on above: Order Comment: Speci men Type: BLOOD SPECIMENOrdering Facility: [facility] Address: [address] [place] [address] Performed By: #### 5 7021-8 ####[facility] LABORATORYCLIA [id number] [place] [address] [place] Erythrocyte distribution width (RBC) [Ratio] 12.6 % Normal 11.5-15.0 [facility] Comment on above: Order Comment: Speci men Type: BLOOD SPECIMENOrdering Facility: [facility] Address: [address] [place] [address] Performed By: #### 5 7021-8 ####[facility] LABORATORYCLIA [id number] [place] [address] [place] Hematocrit (Bld) [Volume fraction] 29.7 % Low 36.0-46.0 [facility] Comment on above: Order Comment: Speci men Type: BLOOD SPECIMENOrdering Facility: [facility] Address: [address] [place] [address] Performed By: #### 5 7021-8 ####[facility] LABORATORYCLIA [id number] [place] [address] [place] Hemoglobin (Bld) [Mass/Vol] 10.0 g/dL Low 11.5-15.5 [facility] Comment on above: Order Comment: Speci men Type: BLOOD SPECIMENOrdering Facility: [facility] Address: [address] [place] [address] Performed By: #### 5 7021-8 ####[facility] LABORATORYCLIA [id number] [place] [id number] [place] Immature granulocytes (Bld) [#/Vol] 10*3/uL Normal <0.10 [facility] Comment on above: Order Comment: Speci men Type: BLOOD SPECIMENOrdering Facility: [facility] Address: [address] [place] [address] Performed By: #### 5 7021-8 ####[facility] LABORATORYCLIA [id number] [address] Immature granulocytes/100 WBC (Bld) 0.3 % Normal [facility] Comment on above: Order Comment: Speci men Type: BLOOD SPECIMENOrdering Facility: [facility] Address: [address] [place] [address] Performed By: #### 5 7021-8 ####[facility] LABORATORYCLIA [id number] [address] [place] Lymphocytes (Bld) [#/Vol] 1.18 10*3/uL Normal 1.00-4.00 [facility] Comment on above: Order Comment: Speci men Type: BLOOD SPECIMENOrdering Facility: [facility] Address: [address] [place] [address] Performed By: #### 5 7021-8 ####[facility] LABORATORYCLIA [id number] [address] STATES [facility] Lymphocytes/100 WBC (Bld) 38.2 % Normal [facility] Comment on above: Order Comment: Speci men Type: BLOOD SPECIMENOrdering Facility: [facility] Address: [address] [place] [address] Performed By: #### 5 7021-8 ####[facility] LABORATORYCLIA [id number] [place] [address] [place] MCH (RBC) [Entitic mass] 29.9 pg Normal 26.0-34.0 [facility] Comment on above: Order Comment: Speci men Type: BLOOD SPECIMENOrdering Facility: [facility] Address: [address] [place] [address] Performed By: #### 5 7021-8 ####[facility] LABORATORYCLIA [id number] [place] [address] [place] MCHC (RBC) [Mass/Vol] 33.7 g/dL Normal 30.5-36.0 [facility] Comment on above: Order Comment: Speci men Type: BLOOD SPECIMENOrdering Facility: [facility] Address: [address] [place] [address] Performed By: #### 5 7021-8 ####[facility] LABORATORYCLIA [id number] [place] [address] [place] MCV (RBC) [Entitic vol] 88.9 fL Normal 80.0-100.0 [facility] Comment on above: Order Comment: Speci men Type: BLOOD SPECIMENOrdering Facility: [facility] Address: [address] [place] [address] Performed By: #### 5 7021-8 ####[facility] LABORATORYCLIA [id number] [place] [address] [place] Monocytes (Bld) [#/Vol] 0.26 10*3/uL Normal <0.87 [facility] Comment on above: Order Comment: Speci men Type: BLOOD SPECIMENOrdering Facility: [facility] Address: [address] [place] [address] Performed By: #### 5 7021-8 ####[facility] LABORATORYCLIA [id number] [place] [address] [place] Monocytes/100 WBC (Bld) 8.4 % Normal [facility] Comment on above: Order Comment: Speci men Type: BLOOD SPECIMENOrdering Facility: [facility] Address: [address] [place] [address] Performed By: #### 5 7021-8 ####[facility] LABORATORYCLIA [id number] [place] [address] [place] Neutrophils (Bld) [#/Vol] 1.32 10*3/uL Low 1.45-7.50 [facility] Comment on above: Order Comment: Speci men Type: BLOOD SPECIMENOrdering Facility: [facility] Address: [address] [place] [address] Performed By: #### 5 7021-8 ####[facility] LABORATORYCLIA [id number] [place] [id number] [place] Neutrophils/100 WBC (Bld) 42.7 % Normal [facility] Comment on above: Order Comment: Speci men Type: BLOOD SPECIMENOrdering Facility: [facility] Address: [address] [place] [address] Performed By: #### 5 7021-8 ####[facility] LABORATORYCLIA [id number] [address] STATES [facility] Nucleated RBC (Bld) [#/Vol] 10*3/uL Normal <0.01 [facility] Comment on above: Order Comment: Speci men Type: BLOOD SPECIMENOrdering Facility: [facility] Address: [address] [place] [address] Performed By: #### 5 7021-8 ####[facility] LABORATORYCLIA [id number] [address] [place] [facility] Nucleated RBC/100 WBC (Bld) [Ratio] 0.0 /100 WBC Normal [facility] Comment on above: Order Comment: Speci men Type: BLOOD SPECIMENOrdering Facility: [facility] Address: [address] [place] [address] Performed By: #### 5 7021-8 ####[facility] LABORATORYCLIA [id number] [address] [place] Platelet mean volume (Bld) [Entitic vol] 10.6 fL Normal 9.0-12.7 [facility] Comment on above: Order Comment: Speci men Type: BLOOD SPECIMENOrdering Facility: [facility] Address: [address] [place] [address] Performed By: #### 5 7021-8 ####[facility] LABORATORYCLIA [id number] [place] [address] [place] Platelets (Bld) [#/Vol] 210 10*3/uL Normal 150-400 [facility] Comment on above: Order Comment: Speci men Type: BLOOD SPECIMENOrdering Facility: [facility] Address: [address] [place] [address] Performed By: #### 5 7021-8 ####[facility] LABORATORYCLIA [id number] [place] [id number] [place] RBC (Bld) [#/Vol] 3.34 10*6/uL Low 3.90-5.20 [facility] Comment on above: Order Comment: Speci men Type: BLOOD SPECIMENOrdering Facility: [facility] Address: [address] [place] [address] Performed By: #### 5 7021-8 ####[facility] LABORATORYCLIA [id number] [place] [address] [place] WBC (Bld) [#/Vol] 3.09 10*3/uL Low 3.70-11.00 [facility] Comment on above: Order Comment: Speci men Type: BLOOD SPECIMENOrdering Facility: [facility] Address: [address] [place] [address] Performed By: #### 5 7021-8 ####[facility] LABORATORYCLIA [id number] [place] [id number] [place] Magnesium SerPl-mCncon 07-18 Magnesium [Mass/Vol] 2.0 mg/dL Normal 1.7-2.3 Addison Gilbert [facility] Comment on above: Order Comment: Speci men Type: BLOOD SPECIMENOrdering Facility: [facility] Address: [address] [place] [address] Performed By: #### 2 777-1, 26340-6, 87933-2 ####[facility] LABORATORYCLIA [id number] [place] [address] [place] NUTRITIONon 07-19-2023 NUTRITION Normal [facility] Phosphate SerPl-mCncon 07-18 Phosphate [Mass/Vol] 4.3 mg/dL Normal 2.7-4.8 [facility] Comment on above: Order Comment: Speci men Type: BLOOD SPECIMENOrdering Facility: [facility] Address: [address] [place] [address] Performed By: #### 2 777-1, , ####[facility] LABORATORYCLIA [id number] [place] [address] [place] ALLIED HEALTHon 07-18-2023 ALLIED HEALTH Normal [facility] ALLIED HEALTH Normal [facility] Basic metabolic 2000 panelon 07-18-2023 Anion gap [Moles/Vol] 9 mmol/L Normal 9-18 [facility] Comment on above: Order Comment: Speci men Type: BLOOD SPECIMENOrdering Facility: [facility] Address: [address] [place] [address] Performed By: #### 2 777-1, , ####[facility] LABORATORYCLIA [id number] [place] [id number] [place] Calcium [Mass/Vol] 8.5 mg/dL Normal 8.5-10.2 [facility] Comment on above: Order Comment: Speci men Type: BLOOD SPECIMENOrdering Facility: [facility] Address: [address] [place] [address] Performed By: #### 2 777-1, , ####[facility] LABORATORYCLIA [id number] [place] [address] [place] Chloride [Moles/Vol] 108 mmol/L High 97-105 [facility] Comment on above: Order Comment: Speci men Type: BLOOD SPECIMENOrdering Facility: [facility] Address: [address] [place] [address] Performed By: #### 2 777-1, , ####[facility] LABORATORYCLIA [id number] [place] [address] [place] CO2 [Moles/Vol] 22 mmol/L Normal 22-30 [facility] Comment on above: Order Comment: Speci men Type: BLOOD SPECIMENOrdering Facility: [facility] Address: [address] [place] [address] Performed By: #### 2 777-1, 28027-5, ####[facility] LABORATORYCLIA [id number] [place] [address] [place] [facility] Creatinine [Mass/Vol] 0.76 mg/dL Normal 0.58-0.96 [facility] Comment on above: Order Comment: Geraldo men Type: BLOOD SPECIMENOrdering Facility: [facility] Address: [address] [place] [address] Performed By: #### 2 777-1, 83237-5, ####[facility] LABORATORYCLIA [id number] [place] [address] [facility] Creatinine and Glomerular filtration rate.predicted panel (S/P/Bld) 106 mL/min/1.73m??? Normal >=60 [facility] Comment on above: Order Comment: Geraldo marrero Type: BLOOD SPECIMENOrdering Facility: [facility] Address: [address] [place] [address] Result Comment: Jessica mated Glomerular Filtration Rate [...] actual GFR. Performed By: #### 2 777-1, 88821-1, ####[facility] LABORATORYCLIA [id number] [place] [address] [place] Glucose [Mass/Vol] 80 mg/dL Normal 74-99 [facility] Comment on above: Order Comment: Geraldo men Type: BLOOD SPECIMENOrdering Facility: [facility] Address: [address] [place] [address] Result Comment: The [place] Diabetes Association (ADA) provides guidance for cutoff [...] Standards of Medical Care in Diabetes 2016, [place] Diabetes Association. Diabetes Care. 2016.39(Suppl 1). Performed By: #### 2 777-1, , ####[facility] LABORATORYCLIA [id number] [place] [address] [place] Potassium [Moles/Vol] 4.1 mmol/L Normal 3.7-5.1 [facility] Comment on above: Order Comment: Geraldo marrero Type: BLOOD SPECIMENOrdering Facility: [facility] Address: [address] [place] [address] Performed By: #### 2 777-1, , ####[facility]PITALCLIA [id number] [place] [address] [place] Sodium [Moles/Vol] 139 mmol/L Normal 136-144 [facility] Comment on above: Order Comment: Geraldo marrero Type: BLOOD SPECIMENOrdering Facility: [facility] Address: [address] [place] [address] Performed By: #### 2 777-1, , ####[facility] LABORATORYCLIA [id number] [place] [address] [place] Urea nitrogen [Mass/Vol] 7 mg/dL Normal 7-21 [facility] Comment on above: Order Comment: Lyssai elida Type: BLOOD SPECIMENOrdering Facility: [facility] Address: [address] [place] [address] Performed By: #### 2 777-1, , ####[facility] LABORATORYCLIA [id number] [place] [address] [place] CBC W Auto Differential pane l (Bld)on 07-18-2023 Basophils (Bld) [#/Vol] 0.06 10*3/uL Normal <0.11 [facility] Comment on above: Order Comment: Speci men Type: BLOOD SPECIMENOrdering Facility: [facility] Address: [address] [place] [address] Performed By: #### 5 7021-8 ####[facility] LABORATORYCLIA [id number] [place] [address] [place] Basophils/100 WBC (Bld) 1.6 % Normal [facility] Comment on above: Order Comment: Speci men Type: BLOOD SPECIMENOrdering Facility: [facility] Address: [address] [place] [address] Performed By: #### 5 7021-8 ####[facility] LABORATORYCLIA [id number] [place] [address] [place] Differential cell count method Nom (Bld) Auto Normal [facility] Comment on above: Order Comment: Speci men Type: BLOOD SPECIMENOrdering Facility: [facility] Address: [address] [place] [address] Performed By: #### 5 7021-8 ####[facility] LABORATORYCLIA [id number] [place] [address] [place] Eosinophils (Bld) [#/Vol] 0.33 10*3/uL Normal <0.46 [facility] Comment on above: Order Comment: Speci men Type: BLOOD SPECIMENOrdering Facility: [facility] Address: [address] [place] [address] Performed By: #### 5 7021-8 ####[facility] LABORATORYCLIA [id number] [place] [address] [place] Eosinophils/100 WBC (Bld) 8.8 % Normal [facility] Comment on above: Order Comment: Speci men Type: BLOOD SPECIMENOrdering Facility: [facility] Address: [address] [place] [address] Performed By: #### 5 7021-8 ####[facility] LABORATORYCLIA [id number] [place] [address] [place] Erythrocyte distribution width (RBC) [Ratio] 12.9 % Normal 11.5-15.0 [facility] Comment on above: Order Comment: Speci men Type: BLOOD SPECIMENOrdering Facility: [facility] Address: [address] [place] [address] Performed By: #### 5 7021-8 ####[facility] LABORATORYCLIA [id number] [place] [address] [place] Hematocrit (Bld) [Volume fraction] 31.1 % Low 36.0-46.0 [facility] Comment on above: Order Comment: Speci men Type: BLOOD SPECIMENOrdering Facility: [facility] Address: [address] [place] [address] Performed By: #### 5 7021-8 ####[facility] LABORATORYCLIA [id number] [place] [address] [place] Hemoglobin (Bld) [Mass/Vol] 10.2 g/dL Low 11.5-15.5 [facility] Comment on above: Order Comment: Speci men Type: BLOOD SPECIMENOrdering Facility: [facility] Address: [address] [place] [address] Performed By: #### 5 7021-8 ####[facility] LABORATORYCLIA [id number] [address] [place] Immature granulocytes (Bld) [#/Vol] 10*3/uL Normal <0.10 [facility] Comment on above: Order Comment: Speci men Type: BLOOD SPECIMENOrdering Facility: [facility] Address: [address] [place] [address] Performed By: #### 5 7021-8 ####[facility] LABORATORYCLIA [id number] [place] [address] [place] Immature granulocytes/100 WBC (Bld) 0.0 % Normal [facility] Comment on above: Order Comment: Speci men Type: BLOOD SPECIMENOrdering Facility: [facility] Address: [address] [place] [address] Performed By: #### 5 7021-8 ####[facility] LABORATORYCLIA [id number] [place] [address] [place] Lymphocytes (Bld) [#/Vol] 1.40 10*3/uL Normal 1.00-4.00 [facility] Comment on above: Order Comment: Speci men Type: BLOOD SPECIMENOrdering Facility: [facility] Address: [address] [place] [address] Performed By: #### 5 7021-8 ####[facility] LABORATORYCLIA [id number] [place] [address] [place] Lymphocytes/100 WBC (Bld) 37.2 % Normal [facility] Comment on above: Order Comment: Speci men Type: BLOOD SPECIMENOrdering Facility: [facility] Address: [address] [place] [address] Performed By: #### 5 7021-8 ####[facility] LABORATORYCLIA [id number] [place] [address] [place] MCH (RBC) [Entitic mass] 30.4 pg Normal 26.0-34.0 [facility] Comment on above: Order Comment: Speci men Type: BLOOD SPECIMENOrdering Facility: [facility] Address: [address] [place] [address] Performed By: #### 5 7021-8 ####[facility] LABORATORYCLIA [id number] [place] [address] [place] MCHC (RBC) [Mass/Vol] 32.8 g/dL Normal 30.5-36.0 [facility] Comment on above: Order Comment: Speci men Type: BLOOD SPECIMENOrdering Facility: [facility] Address: [address] [place] [address] Performed By: #### 5 7021-8 ####[facility] LABORATORYCLIA [id number] [place] [address] [place] MCV (RBC) [Entitic vol] 92.6 fL Normal 80.0-100.0 [facility] Comment on above: Order Comment: Speci men Type: BLOOD SPECIMENOrdering Facility: [facility] Address: [address] [place] [address] Performed By: #### 5 7021-8 ####[facility] LABORATORYCLIA [id number] [place] [address] [place] Monocytes (Bld) [#/Vol] 0.42 10*3/uL Normal <0.87 [facility] Comment on above: Order Comment: Speci men Type: BLOOD SPECIMENOrdering Facility: [facility] Address: [address] [place] [address] Performed By: #### 5 7021-8 ####[facility] LABORATORYCLIA [id number] [place] [address] [place] Monocytes/100 WBC (Bld) 11.2 % Normal [facility] Comment on above: Order Comment: Speci men Type: BLOOD SPECIMENOrdering Facility: [facility] Address: [address] [place] [address] Performed By: #### 5 7021-8 ####[facility] LABORATORYCLIA [id number] [place] [address] [place] Neutrophils (Bld) [#/Vol] 1.55 10*3/uL Normal 1.45-7.50 [facility] Comment on above: Order Comment: Speci men Type: BLOOD SPECIMENOrdering Facility: [facility] Address: [address] [place] [address] Performed By: #### 5 7021-8 ####[facility] LABORATORYCLIA [id number] [place] [address] [place] Neutrophils/100 WBC (Bld) 41.2 % Normal [facility] Comment on above: Order Comment: Speci men Type: BLOOD SPECIMENOrdering Facility: [facility] Address: [address] [place] [address] Performed By: #### 5 7021-8 ####[facility] LABORATORYCLIA [id number] [place] [address] [place] Nucleated RBC (Bld) [#/Vol] 10*3/uL Normal <0.01 [facility] Comment on above: Order Comment: Speci men Type: BLOOD SPECIMENOrdering Facility: [facility] Address: [address] [place] [address] Performed By: #### 5 7021-8 ####[facility] LABORATORYCLIA [id number] [place] [address] [place] Nucleated RBC/100 WBC (Bld) [Ratio] 0.0 /100 WBC Normal [facility] Comment on above: Order Comment: Speci men Type: BLOOD SPECIMENOrdering Facility: [facility] Address: [address] [place] [address] Performed By: #### 5 7021-8 ####[facility] LABORATORYCLIA [id number] [place] [address] [place] Platelet mean volume (Bld) [Entitic vol] 11.0 fL Normal 9.0-12.7 [facility] Comment on above: Order Comment: Speci men Type: BLOOD SPECIMENOrdering Facility: [facility] Address: [address] [place] [address] Performed By: #### 5 7021-8 ####[facility] LABORATORYCLIA [id number] [place] [address] [place] Platelets (Bld) [#/Vol] 212 10*3/uL Normal 150-400 [facility] Comment on above: Order Comment: Speci men Type: BLOOD SPECIMENOrdering Facility: [facility] Address: [address] [place] [address] Performed By: #### 5 7021-8 ####[facility] LABORATORYCLIA [id number] [place] [address] [place] RBC (Bld) [#/Vol] 3.36 10*6/uL Low 3.90-5.20 [facility] Comment on above: Order Comment: Speci men Type: BLOOD SPECIMENOrdering Facility: [facility] Address: [address] [place] [address] Performed By: #### 5 7021-8 ####[facility] LABORATORYCLIA [id number] [place] [address] [place] WBC (Bld) [#/Vol] 3.76 10*3/uL Normal 3.70-11.00 [facility] Comment on above: Order Comment: Speci men Type: BLOOD SPECIMENOrdering Facility: [facility] Address: [address] [place] [address] Performed By: #### 5 7021-8 ####[facility] LABORATORYCLIA [id number] [place] [address] [place] Magnesium SerPl-mCncon 07-17 Magnesium [Mass/Vol] 1.9 mg/dL Normal 1.7-2.3 [facility] Comment on above: Order Comment: Speci men Type: BLOOD SPECIMENOrdering Facility: [facility] Address: [address] [place] [address] Performed By: #### 2 777-1, 62470-4, ####[facility] LABORATORYCLIA [id number] [place] [address] [place] Phosphate SerPl-mCncon 07-17 Phosphate [Mass/Vol] 4.7 mg/dL Normal 2.7-4.8 [facility] Comment on above: Order Comment: Speci men Type: BLOOD SPECIMENOrdering Facility: [facility] Address: [address] [place] [address] Performed By: #### 2 777-1, 05075-5, ####[facility] LABORATORYCLIA [id number] [place] [address] [place] XR CHEST 1V FRONTAL PORTon 0 07-18-2023 XR CHEST 1V FRONTAL PORT Normal [facility] XR SMALL BOWEL SERIESon 06-0 XR SMALL BOWEL SERIES Normal [facility] Capillary blood glucose brie urement by glucometer (mass/volume)Ordered By: Camden Rodriguez on 07-17-2023 Glucose [Mass/Vol] 86 mg/dL [facility] Comment on above: Random Glucose Refer ence Range is dependent on time and content of last meal. Glucose of more than 200 mg/dL in a nonstressed, ambulatory subject supports the diagnosis of Diabetes Mellitus. Result Comment: [place] om Glucose Reference Range is dependent on time and content of last meal. Glucose of more than 200 mg/dL in a nonstressed, ambulatory subject supports the diagnosis of Diabetes Mellitus. PERFORMED BY: [place] [id number] PATHOLOGIST SALES OPERATIONS ASSISTANT BAUTISTA BAKER M.D. Performed By: #### C BC, BMP, HEPATIC, LIPASE #### [place] [id number] [facility] Glucose Poct Glucometerson 0 07-17-2023 Commemt1 Glu2: Cleaned Meter Normal [facility] Comment on above: Result Comment: PERF ORMED BY: [facility] [address] [place] [id number] PATHOLOGIST SALES OPERATIONS ASSISTANT BAUTISTA BAKER M.D. Performed By: #### C BC, BMP, HEPATIC, LIPASE #### [address] [address] [facility] Glucose [Mass/Vol] 90 mg/dL Normal [facility] Comment on above: Result Comment: [place] Glucose Reference Range is dependent on time and content of last meal. Glucose of more than 200 mg/dL in a nonstressed, ambulatory subject supports the diagnosis of Diabetes Mellitus. Performed By: #### C BC, BMP, HEPATIC, LIPASE #### [place] [id number] [facility] HISTORY PHYSICALon HISTORY PHYSICAL Normal [facility] NURSING PROGon 07-17-2023 NURSING PROG Normal [facility] No Panel InformationOrdered By: Camden Rodriguez on 07-17-2023 Bedside Glucose Comment Glu2: cleaned meter [facility] Alanine aminotransferase [En zymatic activity/volume] in Serum or PlasmaOrdered By: Shaan Sabillon on 07-16-2023 ALT [Catalytic activity/Vol] 39 U/L 7-52 [facility] Comment on above: Performed By: #### C BC, BMP, HEPATIC, LIPASE #### [place] [id number] [facility] Albumin [Mass/volume] in Ser um or Plasma by Bromocresol green (BCG) dye binding methoOrdered By: Shaan Sabillon on 07-16-2023 Albumin BCG dye [Mass/Vol] 4.3 g/dL 3.5-5.7 [facility] Alkaline phosphatase [Enzyma tic activity/volume] in Serum or PlasmaOrdered By: Shaan Sabillon on 07-16-2023 ALP [Catalytic activity/Vol] 57 U/L 34-104 [facility] Comment on above: Performed By: #### C BC, BMP, HEPATIC, LIPASE #### [address] Aspartate aminotransferase [ Enzymatic activity/volume] in Serum or PlasmaOrdered By: Shaan Sabillon on 07-16-2023 AST [Catalytic activity/Vol] 43 U/L High 13-39 [facility] Comment on above: Performed By: #### C BC, BMP, HEPATIC, LIPASE #### [address] Automated basophil %Ordered By: Shaan Sabillon on 07-16-2023 Basophils/100 WBC (Bld) 0.7 % . [facility] Comment on above: Performed By: #### C BC, BMP, HEPATIC, LIPASE #### [address] Automated basophil countOrde red By: Shaan Sabillon on 07-16-2023 Basophils (Bld) [#/Vol] 0.0 10*3/uL 0.0-0.2 [facility] Comment on above: Result Comment: PERF ORMED BY: [place] [address] PATHOLOGIST SALES OPERATIONS ASSISTANT BAUTISTA BAKER M.D. Performed By: #### C BC, BMP, HEPATIC, LIPASE #### [address] Automated blood monocyte cou ntOrdered By: Shaan Sabillon on 07-16-2023 Monocytes (Bld) [#/Vol] 0.3 10*3/uL 0.0-0.8 [facility] Comment on above: Performed By: #### C BC, BMP, HEPATIC, LIPASE #### [address] Automated eosinophil %Ordere d By: Shaan Sabillon on 05-31-2024 Eosinophils/100 WBC (Bld) 0.5 % . [facility] Comment on above: Performed By: #### C BC, BMP, HEPATIC, LIPASE #### [address] Automated eosinophil countOr dered By: Shaan Sabillon on 07-16-2023 Eosinophils (Bld) [#/Vol] 0.0 10*3/uL 0.0-0.45 [facility] Comment on above: Performed By: #### C BC, BMP, HEPATIC, LIPASE #### [address] Automated monocyte %Ordered By: Shaan Sabillon on 07-16-2023 Monocytes/100 WBC (Bld) 4.5 % . [facility] Comment on above: Performed By: #### C BC, BMP, HEPATIC, LIPASE #### [address] Automated neutrophil %Ordere d By: Shaan Sabillon on 07-16-2023 Neutrophils/100 WBC (Bld) 75.6 % . [facility] Comment on above: Performed By: #### C BC, BMP, HEPATIC, LIPASE #### [address] Basic Metabolic Panelon 06-17 Creatinine Clr Calc Pharmacy 117.42 Normal [facility] Comment on above: Performed By: #### C BC, BMP, HEPATIC, LIPASE #### [address] GFR/1.73 sq M.predicted MDRD (S/P/Bld) [Vol rate/Area] mL/min/{1.73_m2} Normal [facility] Comment on above: Performed By: #### C BC, BMP, HEPATIC, LIPASE #### [address] Bilirubin Test strip Ql (U)O rdered By: Shaan Sabillon on 07-16-2023 Bilirubin Ql (U) Negative Negative [facility] Bilirubin.direct [Mass/volum e] in Serum or PlasmaOrdered By: Shaan Sabillon on 07-16-2023 Bilirubin.direct [Mass/Vol] 0.10 mg/dL 0.03-0.18 [facility] Bilirubin.total [Mass/volume ] in Serum or PlasmaOrdered By: Shaan Sabillon on 07-16-2023 Bilirubin [Mass/Vol] 0.6 mg/dL 0.3-1.0 [facility] Comment on above: Performed By: #### C BC, BMP, HEPATIC, LIPASE #### [facility] [address] abdomen pelvis w conon CT abdomen pelvis w con [facility] Main [place] [address] [place] [address] CT Scan Report Signed Patient: Abbey Garcia MR#: [id number] : 1990 Acct:[id number] Age/Sex: 33 / F ADM Date: 07/16/23 Loc: ER Room: Type: [facility] ER Attending Dr: Copies to: Shaan Sabillon PA-C Ordering Provider: Shaan Sabillon PA-C Date of Service: 07/16/23 CT/CT abdomen pelvis w con: Abdominal Pain CT ABDOMEN AND PELVIS WITH INTRAVENOUS CONTRAST: CLINICAL HISTORY: Abdominal pain. COMPARISON: CT abdomen and pelvis 05/30/2023 TECHNIQUE: Spiral images were obtained through the abdomen and pelvis following the administration of intravenous contrast. This CT exam was performed using one or more following dose reduction techniques: Automated exposure control, adjustment of the mA and/or kV according to patient size, or use of iterative reconstruction technique. FINDINGS: Lung Bases: [Mild bibasilar atelectasis/scarrin g.] Organs:Multiple hypodense lesions, most too small fracture characterization, largest appear to represent cysts. Gallbladder has been removed. Portal vein spleen pancreas and adrenal glands appear unremarkable. No enhancing renal mass or hydronephrosis. Abdominal aorta is normal in caliber.[ GI: Gastric bypass changes. J-tube is in place. Fluid-filled distal small bowel loops are identified without gross distention. No acute colonic abnormality.[ Pelvis:[Urinary bladder is grossly unremarkable. Uterus has been removed. No adnexal mass.] Peritoneum/Retroper itoneum:No free air, free fluid or lymphadenopathy.[ Abd wall/Bones:Abdomina l wall demonstrate no acute findings. Osseous structures demonstrate degenerative change.[ CT/CT abdomen pelvis w con IMPRESSION: Fluid-filled distal small bowel loops without gross distention. Developing small bowel obstruction cannot be excluded. Impression dictated by: Cornel Medel Jr., DRenettaORenetta07/16/2023 4:09 PM Dictation Location: [place] [address] Transcribed By: [facility] 07/16/23 1609 Dictated By: Cornel Medel Jr, DO 07/16/23 1606 Signed By: 07/16/23 1609 Normal [facility] Calcium [Mass/volume] in Ser um or PlasmaOrdered By: Shaan Sabillon on 07-16-2023 Calcium [Mass/Vol] 8.9 mg/dL 8.6-10.3 [facility] Comment on above: Performed By: #### C BC, BMP, HEPATIC, LIPASE #### [address] Carbon dioxide, total [Moles /volume] in Serum or PlasmaOrdered By: Shaan Sabillon on 07-16-2023 CO2 [Moles/Vol] 24.2 mmol/L 21.0-31.0 [facility] Comment on above: Performed By: #### C BC, BMP, HEPATIC, LIPASE #### [place] [address] [place] Chloride [Moles/volume] in S elder or PlasmaOrdered By: Shaan Sabillon on 07-16-2023 Chloride [Moles/Vol] 107 mmol/L 98-107 [facility] Comment on above: Performed By: #### C BC, BMP, HEPATIC, LIPASE #### [facility] [address] [place] [address] [place] Color of Urine by AutoOrdere d By: Shaan Sabillon on 07-16-2023 Color (U) Yellow Yellow [facility] Comment on above: Order Comment: Name Collection Type:: Clean-Voided Midstream Performed By: #### C BC, BMP, HEPATIC, LIPASE #### [place] [address] [place] Complete Blood Count Auto Di ffon 07-16-2023 Mean Corpuscular HGB Conc 34.2 g/dL Normal 32.0-35.0 [facility] Comment on above: Performed By: #### C BC, BMP, HEPATIC, LIPASE #### [address] Monocytes/100 WBC (Bld) 16.79 % Normal 0.00-20.00 [facility] Comment on above: Performed By: #### C BC, BMP, HEPATIC, LIPASE #### [address] NRBC% 0.0 /100{WBC} Normal 0-0.5 [facility] Comment on above: Performed By: #### C BC, BMP, HEPATIC, LIPASE #### [address] Creatinine [Mass/volume] in Serum or PlasmaOrdered By: Shaan Sabillon on 07-16-2023 Creatinine [Mass/Vol] 0.72 mg/dL 0.60-1.20 [facility] Comment on above: Performed By: #### C BC, BMP, HEPATIC, LIPASE #### [address] Erythrocyte distribution wid th [Ratio] by Automated countOrdered By: Shaan Sabillon on 07-16-2023 Erythrocyte distribution width (RBC) [Ratio] 14.4 % 11.9-15.3 [facility] Comment on above: Performed By: #### C BC, BMP, HEPATIC, LIPASE #### [address] Erythrocytes [#/volume] in B lood by Automated countOrdered By: Shaan Sabillon on 07-16-2023 RBC (Bld) [#/Vol] 3.67 10*6/uL 3.60-5.00 [facility] Comment on above: Performed By: #### C BC, BMP, HEPATIC, LIPASE #### [address] Glucose [Mass/volume] in Ser um or PlasmaOrdered By: Shaan Sabillon on 07-16-2023 Glucose [Mass/Vol] 82 mg/dL 70-100 [facility] Comment on above: ADA recommended refe rence rangeRandom Glucose Reference Range is dependent on time and content of last meal. Glucose of more than 200 mg/dL in a nonstressed, ambulatory subject supports the diagnosis of Diabetes Mellitus. Result Comment: [place] om Glucose Reference Range is dependent on time and content of last meal. Glucose of more than 200 mg/dL in a nonstressed, ambulatory subject supports the diagnosis of Diabetes Mellitus. ADA recommended reference range Performed By: #### C BC, BMP, HEPATIC, LIPASE #### [address] HCG ( test) IA.rapi d Ql (U)Ordered By: Shaan Sabillon on 07-16-2023 HCG ( test) Ql (U) Negative [facility] HCG,Urineon 07-16-2023 Beta HCG ( test) Ql (U) Negative Normal [facility] Comment on above: Order Comment: Name Collection Type:: Clean-Voided Midstream Result Comment: PERF ORMED BY: [place] [address] PATHOLOGIST SALES OPERATIONS ASSISTANT BAUTISTA BAKER M.D. Performed By: #### C BC, BMP, HEPATIC, LIPASE #### [address] Hematocrit [Volume Fraction] of Blood by Automated countOrdered By: Shaan Sabillon on 07-16-2023 Hematocrit (Bld) [Volume fraction] 32.8 % Low 34.0-46.4 [facility] Comment on above: Performed By: #### C BC, BMP, HEPATIC, LIPASE #### [address] Hemoglobin [Mass/volume] in BloodOrdered By: Shaan Sabillon on 07-16-2023 Hemoglobin (Bld) [Mass/Vol] 11.2 g/dL Low 11.8-15.4 [facility] Comment on above: Performed By: #### C BC, BMP, HEPATIC, LIPASE #### [address] Hepatic Panelon 07-16-2023 Albumin [Mass/Vol] 4.3 g/dL Normal 3.5-5.7 [facility] Comment on above: Performed By: #### C BC, BMP, HEPATIC, LIPASE #### [facility] [address] Bilirubin,Indirect 0.5 mg/dL Normal [facility] Comment on above: Performed By: #### C BC, BMP, HEPATIC, LIPASE #### [facility] [address] Bilirubin.indirect [Mass/Vol] 0.10 mg/dL Normal 0.03-0.18 [facility] Comment on above: Performed By: #### C BC, BMP, HEPATIC, LIPASE #### [address] Ketones Auto test strip (U) [Mass/Vol]Ordered By: Shaan Sabillon on 07-16-2023 Ketones (U) [Mass/Vol] Negative Negative [facility] Leukocytes [#/volume] correc darvin for nucleated erythrocytes in Blood by Automated counOrdered By: Shaan Sabillon on 07-16-2023 WBC corrected for nucl RBC Auto (Bld) [#/Vol] 6.9 10*3/uL 3.8-11.6 [facility] Leukocytes [#/volume] in Blo od by Automated countOrdered By: Shaan Sabillon on 07-16-2023 WBC (Bld) [#/Vol] 6.9 10*3/uL 3.8-11.6 [facility] Comment on above: Performed By: #### C BC, BMP, HEPATIC, LIPASE #### [address] Lipase [Enzymatic activity/v olume] in Serum or PlasmaOrdered By: Shaan Sabillon on 07-16-2023 Lipase [Catalytic activity/Vol] 45.0 U/L 11.0-82.0 [facility] Comment on above: Result Comment: PERF ORMED BY: [place] [address] PATHOLOGIST SALES OPERATIONS ASSISTANT BAUTISTA BAKER M.D. Performed By: #### C BC, BMP, HEPATIC, LIPASE #### [facility] [address] [place] [address] Lymphocytes [#/volume] in Bl ood by Automated countOrdered By: Shaan Sabillon on 07-16-2023 Lymphocytes (Bld) [#/Vol] 1.3 10*3/uL 1.00-4.8 [facility] Comment on above: Performed By: #### C BC, BMP, HEPATIC, LIPASE #### [address] Lymphocytes/100 leukocytes i n Blood by Automated countOrdered By: Shaan Sabillon on 07-16-2023 Lymphocytes/100 WBC (Bld) 18.7 % . [facility] Comment on above: Performed By: #### C BC, BMP, HEPATIC, LIPASE #### [address] MCH [Entitic mass] by Automa darvin countOrdered By: Shaan Sabillon on 07-16-2023 MCH (RBC) [Entitic mass] 30.5 pg 24.7-34.3 [facility] Comment on above: Performed By: #### C BC, BMP, HEPATIC, LIPASE #### [address] MCHC Auto (RBC) [Mass/Vol]Or dered By: Shaan Sabillon on 07-16-2023 MCHC (RBC) [Mass/Vol] 34.2 g/dL 32.0-35.0 [facility] MCV [Entitic volume] by Auto mated countOrdered By: Shaan Sabillon on 07-16-2023 MCV (RBC) [Entitic vol] 89.2 fL 80-100 [facility] Comment on above: Performed By: #### C BC, BMP, HEPATIC, LIPASE #### [address] Monocyte distribution width [Entitic volume] in Blood by AutomatedOrdered By: Shaan Sabillon on 07-16-2023 Monocyte distribution width Auto (Bld) [Entitic vol] 16.79 % 0.00-20.00 [facility] Neutrophils [#/volume] in Bl ood by Automated countOrdered By: Shaan Sabillon on 07-16-2023 Neutrophils (Bld) [#/Vol] 5.2 10*3/uL 1.8-7.7 [facility] Comment on above: Performed By: #### C BC, BMP, HEPATIC, LIPASE #### [facility] [address] Nitrite Test strip Ql (U)Ord ered By: Shaan Sabillon on 07-16-2023 Nitrite Ql (U) Negative Negative [facility] No Panel InformationOrdered By: Shaan Sabillon on 07-16-2023 Estimated GFR (CKD-EPI) > 60.0 mL/Min [facility] Creatinine Clearance (Chem 117.42 [facility] Nucleated erythrocytes [Pres ence] in Blood by Automated countOrdered By: Shaan Sabillon on 07-16-2023 Nucleated RBC Auto Ql (Bld) 0.0 /100{WBC} 0-0.5 [facility] Platelet mean volume [Entiti c volume] in Blood by Automated countOrdered By: Shaan Sabillon on 07-16-2023 Platelet mean volume (Bld) [Entitic vol] 9.0 fL 6.3-10.7 [facility] Comment on above: Performed By: #### C BC, BMP, HEPATIC, LIPASE #### [facility] [address] [place] [address] Platelets [#/volume] in Bloo d by Automated countOrdered By: Shaan Sabillon on 07-16-2023 Platelets (Bld) [#/Vol] 282 10*3/uL 150-450 [facility] Comment on above: Performed By: #### C BC, BMP, HEPATIC, LIPASE #### [facility] [address] [place] [address] [place] Potassium [Moles/volume] in Serum or PlasmaOrdered By: Shaan Sabillon on 07-16-2023 Potassium [Moles/Vol] 3.7 mmol/L 3.5-5.1 [facility] Comment on above: Performed By: #### C BC, BMP, HEPATIC, LIPASE #### [address] Protein Auto test strip (U) [Mass/Vol]Ordered By: Shaan Sabillon on 07-16-2023 Protein (U) [Mass/Vol] Negative Negative [facility] Protein [Mass/volume] in Ser um or PlasmaOrdered By: Shaan Sabillon on 07-16-2023 Protein [Mass/Vol] 6.8 g/dL 6.4-8.9 [facility] Comment on above: Performed By: #### C BC, BMP, HEPATIC, LIPASE #### [address] Serum globulin measurement b y calculation (mass/volume)Ordered By: Shaan Sabillon on 07-16-2023 Globulin (S) [Mass/Vol] 2.5 g/dL [facility] Comment on above: Performed By: #### C BC, BMP, HEPATIC, LIPASE #### [address] Serum or plasma albumin/glob ulin mass ratioOrdered By: Shaan Sabillon on 07-16-2023 Albumin/Globulin [Mass ratio] 1.7 {ratio} [facility] Comment on above: Performed By: #### C BC, BMP, HEPATIC, LIPASE #### [address] Serum or plasma anion gap de terminationOrdered By: Shaan Sabillon on 07-16-2023 Anion gap [Moles/Vol] 9.5 mmol/L 6.0-15.0 [facility] Comment on above: Performed By: #### C BC, BMP, HEPATIC, LIPASE #### [address] Serum or plasma non-glucuron idated bilirubin measurement (mass/volume)Ordered By: Shaan Sabillon on 07-16-2023 Bilirubin.indirect [Mass/Vol] 0.5 mg/dL [facility] Sodium [Moles/volume] in Ser um or PlasmaOrdered By: Shaan Sabillon on 07-16-2023 Sodium [Moles/Vol] 137 mmol/L 136-145 [facility] Comment on above: Performed By: #### C BC, BMP, HEPATIC, LIPASE #### [address] Specific gravity Auto test s trip (U) [Rel density]Ordered By: Shaan Sabillon on 07-16-2023 Specific gravity (U) [Rel density] 1.006 1.001-1.030 [facility] Urea nitrogen [Mass/volume] in Serum or PlasmaOrdered By: Shaan Sabillon on 07-16-2023 Urea nitrogen [Mass/Vol] 14 mg/dL 09-08 [facility] Comment on above: Performed By: #### C BC, BMP, HEPATIC, LIPASE #### [address] Urinalysison 07-16-2023 Appearance (U) Clear Normal Clear [facility] Comment on above: Order Comment: Name Collection Type:: Clean-Voided Midstream Performed By: #### C BC, BMP, HEPATIC, LIPASE #### [address] Bilirubin,Urine Negative Normal Negative [facility] Comment on above: Order Comment: Name Collection Type:: Clean-Voided Midstream Performed By: #### C BC, BMP, HEPATIC, LIPASE #### [address] Glucose Ql (U) Normal Normal Normal [facility] Comment on above: Order Comment: Name Collection Type:: Clean-Voided Midstream Performed By: #### C BC, BMP, HEPATIC, LIPASE #### [address] Ketones Ql (U) Negative Normal Negative [facility] Comment on above: Order Comment: Name Collection Type:: Clean-Voided Midstream Performed By: #### C BC, BMP, HEPATIC, LIPASE #### [address] Leukocyte esterase Test strip Ql (U) Negative Normal Negative [facility] Comment on above: Order Comment: Name Collection Type:: Clean-Voided Midstream Performed By: #### C BC, BMP, HEPATIC, LIPASE #### [facility] [address] [place] [address] [place] Nitrite,Urine Negative Normal Negative [facility] Comment on above: Order Comment: Name Collection Type:: Clean-Voided Midstream Performed By: #### C BC, BMP, HEPATIC, LIPASE #### [facility] [address] [place] [address] [place] Occult Blood,Urine Negative Normal Negative [facility] Comment on above: Order Comment: Name Collection Type:: Clean-Voided Midstream Performed By: #### C BC, BMP, HEPATIC, LIPASE #### [facility] [address] Protein,Urine Negative Normal Negative [facility] Comment on above: Order Comment: Name Collection Type:: Clean-Voided Midstream Performed By: #### C BC, BMP, HEPATIC, LIPASE #### [address] Specificy [place],Urine 1.006 Normal 1.001-1.030 [facility] Comment on above: Order Comment: Name Collection Type:: Clean-Voided Midstream Performed By: #### C BC, BMP, HEPATIC, LIPASE #### [address] Urobilinogen,Urine Normal Normal Normal [facility] Comment on above: Order Comment: Name Collection Type:: Clean-Voided Midstream Performed By: #### C BC, BMP, HEPATIC, LIPASE #### [address] Urine clarity by refractomet ry automatedOrdered By: Shaan Sabillon on 07-16-2023 Clarity Refractometry automated (U) Clear Clear [facility] Urine glucose measurement by automated test strip (mass/volume)Ordered By: Shaan Sabillon on 07-16-2023 Glucose Auto test strip (U) [Mass/Vol] Normal mg/dL Normal [facility] Urine hemoglobin detection b y automated test stripOrdered By: Shaan Sabillon on 07-16-2023 Hemoglobin Auto test strip Ql (U) Negative Negative [facility] Urine leukocyte esterase det ection by automated test stripOrdered By: Shaan Sabillon on 07-16-2023 Leukocyte esterase Auto test strip Ql (U) Negative Negative [facility] Urine pH measurement by auto mated test stripOrdered By: Shaan Sabillon on 07-16-2023 pH (U) 7.5 [pH] 5.0-9.0 [facility] Comment on above: Order Comment: Name Collection Type:: Clean-Voided Midstream Performed By: #### C BC, BMP, HEPATIC, LIPASE #### [facility] [address] Urobilinogen Auto test strip (U) [Mass/Vol]Ordered By: Shaan Sabillon on 07-16-2023 Urobilinogen (U) [Mass/Vol] Normal mg/dL Normal [facility] CNPNon 07-13-2023 CNPN Normal [facility] Basic metabolic 2000 panelon 07-06-2023 Anion gap [Moles/Vol] 11 mmol/L Normal 9-18 [facility] Comment on above: Order Comment: Speci men Type: BLOOD SPECIMENOrdering Facility: [facility] Address: [address] [place] [address] Performed By: #### 2 4321-2 ####[facility] [id number] [place] [address] [place] Calcium [Mass/Vol] 8.7 mg/dL Normal 8.5-10.2 [facility] Comment on above: Order Comment: Speci men Type: BLOOD SPECIMENOrdering Facility: [facility] Address: [address] [place] [address] Performed By: #### 2 4321-2 ####[facility] [id number] [place] [address] [place] Chloride [Moles/Vol] 110 mmol/L High 97-105 [facility] Comment on above: Order Comment: Speci men Type: BLOOD SPECIMENOrdering Facility: [facility] Address: [address] [place] [address] Performed By: #### 2 4321-2 ####[facility] [id number] [place] [address] [place] CO2 [Moles/Vol] 20 mmol/L Low 22-30 [facility] Comment on above: Order Comment: Speci men Type: BLOOD SPECIMENOrdering Facility: [facility] Address: [address] [place] [address] Performed By: #### 2 4321-2 ####[facility] [id number] [place] [address] [place] Creatinine [Mass/Vol] 0.64 mg/dL Normal 0.58-0.96 [facility] Comment on above: Order Comment: Speci men Type: BLOOD SPECIMENOrdering Facility: [facility] Address: [address] [place] [address] Performed By: #### 2 4321-2 ####[facility] [id number] [place] [address] [place] Creatinine and Glomerular filtration rate.predicted panel (S/P/Bld) 119 mL/min/1.73m??? Normal >=60 [facility] Comment on above: Order Comment: Speci men Type: BLOOD SPECIMENOrdering Facility: [facility] Address: [address] [place] [address] Result Comment: Jessica mated Glomerular Filtration Rate [...] actual GFR. Performed By: #### 2 4321-2 ####[facility] [id number] [place] [address] [place] Glucose [Mass/Vol] 89 mg/dL Normal 74-99 [facility] Comment on above: Order Comment: Speci men Type: BLOOD SPECIMENOrdering Facility: [facility] Address: [address] [place] [address] Result Comment: The [place] Diabetes Association (ADA) provides guidance for cutoff [...] Standards of Medical Care in Diabetes 2016, [place] Diabetes Association. Diabetes Care. 2016.39(Suppl 1). Performed By: #### 2 4321-2 ####[facility] [id number] [place] [address] [place] Potassium [Moles/Vol] 3.9 mmol/L Normal 3.7-5.1 [facility] Comment on above: Order Comment: Speci men Type: BLOOD SPECIMENOrdering Facility: [facility] Address: [address] [id number] Performed By: #### 2 4321-2 ####[facility] [id number] [place] [address] [place] Sodium [Moles/Vol] 141 mmol/L Normal 136-144 [facility] Comment on above: Order Comment: Speci men Type: BLOOD SPECIMENOrdering Facility: [facility] Address: [address] [place] [address] Performed By: #### 2 4321-2 ####[facility] [id number] [place] [address] [place] Urea nitrogen [Mass/Vol] 14 mg/dL Normal 7-21 [facility] Comment on above: Order Comment: Speci men Type: BLOOD SPECIMENOrdering Facility: [facility] Address: [address] [id number] Performed By: #### 2 4321-2 ####[facility] [id number] [place] [address] [place] CBC W Auto Differential pane l (Bld)on 07-06-2023 Basophils (Bld) [#/Vol] 10*3/uL Normal <0.11 [facility] Comment on above: Order Comment: Speci men Type: BLOOD SPECIMENOrdering Facility: [facility] Address: [address] [place] [address] Performed By: #### 5 7021-8 ####[facility] [id number] [place] [address] [place] Basophils/100 WBC (Bld) 0.5 % Normal [facility] Comment on above: Order Comment: Speci men Type: BLOOD SPECIMENOrdering Facility: [facility] Address: [address] [place] [address] Performed By: #### 5 7021-8 ####[facility] [id number] [place] [address] [place] Differential cell count method Nom (Bld) Auto Normal [facility] Comment on above: Order Comment: Speci men Type: BLOOD SPECIMENOrdering Facility: [facility] Address: [address] [place] [address] Performed By: #### 5 7021-8 ####[facility] [id number] [place] [address] [place] Eosinophils (Bld) [#/Vol] 10*3/uL Normal <0.46 [facility] Comment on above: Order Comment: Speci men Type: BLOOD SPECIMENOrdering Facility: [facility] Address: [address] [place] [address] Performed By: #### 5 7021-8 ####[facility] [id number] [place] [address] [place] Eosinophils/100 WBC (Bld) 0.2 % Normal [facility] Comment on above: Order Comment: Speci men Type: BLOOD SPECIMENOrdering Facility: [facility] Address: [address] [place] [address] Performed By: #### 5 7021-8 ####[facility] [id number] [place] [address] [place] Erythrocyte distribution width (RBC) [Ratio] 14.0 % Normal 11.5-15.0 [facility] Comment on above: Order Comment: Speci men Type: BLOOD SPECIMENOrdering Facility: [facility] Address: [address] [place] [address] Performed By: #### 5 7021-8 ####[facility] [id number] [place] [address] [place] Hematocrit (Bld) [Volume fraction] 30.6 % Low 36.0-46.0 [facility] Comment on above: Order Comment: Speci men Type: BLOOD SPECIMENOrdering Facility: [facility] Address: [address] [place] [address] Performed By: #### 5 7021-8 ####[facility] [id number] [place] [address] [place] Hemoglobin (Bld) [Mass/Vol] 10.5 g/dL Low 11.5-15.5 [facility] Comment on above: Order Comment: Speci men Type: BLOOD SPECIMENOrdering Facility: [facility] Address: [address] [place] [address] Performed By: #### 5 7021-8 ####[facility] [id number] [place] [address] [place] Immature granulocytes (Bld) [#/Vol] 10*3/uL Normal <0.10 [facility] Comment on above: Order Comment: Speci men Type: BLOOD SPECIMENOrdering Facility: [facility] Address: [address] [place] [address] Performed By: #### 5 7021-8 ####[facility] [id number] [place] [address] [place] Immature granulocytes/100 WBC (Bld) 0.2 % Normal [facility] Comment on above: Order Comment: Speci men Type: BLOOD SPECIMENOrdering Facility: [facility] Address: [address] [place] [address] Performed By: #### 5 7021-8 ####[facility] [id number] [place] [address] [place] Lymphocytes (Bld) [#/Vol] 1.37 10*3/uL Normal 1.00-4.00 [facility] Comment on above: Order Comment: Speci men Type: BLOOD SPECIMENOrdering Facility: [facility] Address: [address] [place] [address] Performed By: #### 5 7021-8 ####[facility] [id number] [place] [address] [place] Lymphocytes/100 WBC (Bld) 31.2 % Normal [facility] Comment on above: Order Comment: Speci men Type: BLOOD SPECIMENOrdering Facility: [facility] Address: [address] [place] [address] Performed By: #### 5 7021-8 ####[facility] [id number] [place] [address] [place] MCH (RBC) [Entitic mass] 31.3 pg Normal 26.0-34.0 [facility] Comment on above: Order Comment: Speci men Type: BLOOD SPECIMENOrdering Facility: [facility] Address: [address] [place] [address] Performed By: #### 5 7021-8 ####[facility] [id number] [place] [address] [place] MCHC (RBC) [Mass/Vol] 34.3 g/dL Normal 30.5-36.0 [facility] Comment on above: Order Comment: Speci men Type: BLOOD SPECIMENOrdering Facility: [facility] Address: [address] [place] [address] Performed By: #### 5 7021-8 ####[facility] [id number] [place] [address] [place] MCV (RBC) [Entitic vol] 91.1 fL Normal 80.0-100.0 [facility] Comment on above: Order Comment: Speci men Type: BLOOD SPECIMENOrdering Facility: [facility] Address: [address] [place] [address] Performed By: #### 5 7021-8 ####[facility] [id number] [place] [address] [place] Monocytes (Bld) [#/Vol] 0.36 10*3/uL Normal <0.87 [facility] Comment on above: Order Comment: Speci men Type: BLOOD SPECIMENOrdering Facility: [facility] Address: [address] [place] [address] Performed By: #### 5 7021-8 ####[facility] [id number] [place] [address] [place] Monocytes/100 WBC (Bld) 8.2 % Normal [facility] Comment on above: Order Comment: Speci men Type: BLOOD SPECIMENOrdering Facility: [facility] Address: [address] [place] [address] Performed By: #### 5 7021-8 ####[facility] [id number] [place] [address] [place] Neutrophils (Bld) [#/Vol] 2.62 10*3/uL Normal 1.45-7.50 [facility] Comment on above: Order Comment: Speci men Type: BLOOD SPECIMENOrdering Facility: [facility] Address: [address] [place] [address] Performed By: #### 5 7021-8 ####[facility] [id number] [place] [address] [place] Neutrophils/100 WBC (Bld) 59.7 % Normal [facility] Comment on above: Order Comment: Speci men Type: BLOOD SPECIMENOrdering Facility: [facility] Address: [address] [place] [address] Performed By: #### 5 7021-8 ####[facility] [id number] [place] [address] [place] Nucleated RBC (Bld) [#/Vol] 10*3/uL Normal <0.01 [facility] Comment on above: Order Comment: Speci men Type: BLOOD SPECIMENOrdering Facility: [facility] Address: [address] [place] [address] Performed By: #### 5 7021-8 ####[facility] [id number] [place] [address] [place] Nucleated RBC/100 WBC (Bld) [Ratio] 0.0 /100 WBC Normal [facility] Comment on above: Order Comment: Speci men Type: BLOOD SPECIMENOrdering Facility: [facility] Address: [address] [place] [address] Performed By: #### 5 7021-8 ####[facility]IA [id number] [place] [address] [place] Platelet mean volume (Bld) [Entitic vol] 11.2 fL Normal 9.0-12.7 [facility] Comment on above: Order Comment: Speci men Type: BLOOD SPECIMENOrdering Facility: [facility] Address: [address] [place] [address] Performed By: #### 5 7021-8 ####[facility] LABCLIA [id number] [place] [address] [place] Platelets (Bld) [#/Vol] 219 10*3/uL Normal 150-400 [facility] Comment on above: Order Comment: Speci men Type: BLOOD SPECIMENOrdering Facility: [facility] Address: [address] [place] [address] Performed By: #### 5 7021-8 ####[facility] LABCLIA [id number] [place] [address] [place] RBC (Bld) [#/Vol] 3.36 10*6/uL Low 3.90-5.20 [facility] Comment on above: Order Comment: Speci men Type: BLOOD SPECIMENOrdering Facility: [facility] Address: [address] [place] [address] Performed By: #### 5 7021-8 ####[facility] LABCLIA [id number] [place] [address] [place] WBC (Bld) [#/Vol] 4.39 10*3/uL Normal 3.70-11.00 [facility] Comment on above: Order Comment: Speci men Type: BLOOD SPECIMENOrdering Facility: [facility] Address: [address] [place] [address] Performed By: #### 5 7021-8 ####[facility] [id number] [place] [address] [place] CNOVon 07-06-2023 CNOV Normal [facility] CNPTOUTREACHon 07-06-2023 CNPTOUTREACH Normal [facility] CT FLANK WO IVCONon 07-06-19 CT FLANK WO IVCON Normal [facility] ED NOTEon 07-06-2023 ED NOTE Normal [facility] ED NOTE HNO ID: [id number] Author: TG MUNOZ, RN Service: Emergency Medicine Author Type: Registered Nurse Type: ED Notes Filed: 07/06/2023 20:35 Note Text: 0 mL post void residual. Normal [facility] ED NOTE HNO ID: [id number] Author: CORIE LINK RN Service: ? Author Type: Registered Nurse Type: ED Notes Filed: 07/06/2023 15:58 Note Text: Bed: E18-10 Expected date: Expected time: Means of arrival: Comments: HOLD: JOSE Normal [facility] ED PROV NOTEon 07-06-2023 ED PROV NOTE Normal [facility] ED Triage Noteon 07-06-2023 ED Triage Note Normal [facility] URINALYSIS, REFLEX MICROSCOP ICon 07-06-2023 Bilirubin Ql (U) Negative Negative [facility] Clarity (Unsp spec) Clear Clear [facility] Color (U) Light Yellow Yellow [facility] Glucose Test strip (U) [Mass/Vol] Negative Trace, Negative [facility] Hemoglobin Ql (U) Negative Negative, Trace Cl [facility] Interpretation and review of laboratory results Normal [facility] Ketones Ql (U) Negative Negative, Trace [facility] Leukocyte esterase Test strip Ql (U) Negative Negative, 25 Patito/uL [facility] Nitrite Ql (U) Negative Negative [facility] pH (U) 7.0 [pH] 5.0 - 8.0 [facility] Protein (U) [Mass/Vol] Negative Trace, Negative [facility] Specific gravity (U) [Rel density] 1.010 1.005 - 1.030 [facility] Urobilinogen Ql (U) Normal Normal [facility] Bilirubin Ql (U) Negative Normal Negative [facility] Comment on above: Order Comment: Speci men Type: URINE SPECIMENOrdering Facility: [facility] Address: [address] [place] [address] Performed By: #### L [id number] ####[facility] LABCLIA [id number] [address] [place] Clarity (Unsp spec) Clear Normal Clear [facility] Comment on above: Order Comment: Speci men Type: URINE SPECIMENOrdering Facility: [facility] Address: [address] [place] [address] Performed By: #### L [id number] ####[facility]CLIA [id number] [place] [address] [place] Color (U) Light Yellow Normal Yellow [facility] Comment on above: Order Comment: Speci men Type: URINE SPECIMENOrdering Facility: [facility] Address: [address] [place] [address] Performed By: #### L [id number] ####[facility]CLIA [id number] [place] [address] [place] Glucose Test strip (U) [Mass/Vol] Negative Normal Trace, Negative [facility] Comment on above: Order Comment: Speci men Type: URINE SPECIMENOrdering Facility: [facility] Address: [address] [place] [address] Performed By: #### L [id number] ####[facility]CLIA [id number] [place] [address] [place] Hemoglobin Ql (U) Negative Normal Negative, Trace Cl [facility] Comment on above: Order Comment: Speci men Type: URINE SPECIMENOrdering Facility: [facility] Address: [address] [place] [address] Performed By: #### L [id number] ####[facility]CLIA [id number] [place] [address] [place] Ketones Ql (U) Negative Normal Negative, Trace [facility] Comment on above: Order Comment: Speci men Type: URINE SPECIMENOrdering Facility: [facility] Address: [address] [place] [address] Performed By: #### L [id number] ####[facility]CLIA [id number] [place] [address] [place] Leukocyte esterase Test strip Ql (U) Negative Normal Negative, 25 Patito/uL [facility] Comment on above: Order Comment: Speci men Type: URINE SPECIMENOrdering Facility: [facility] Address: [address] [place] [address] Performed By: #### L [id number] ####[facility]CLIA [id number] [place] [address] [place] Nitrite Ql (U) Negative Normal Negative [facility] Comment on above: Order Comment: Speci men Type: URINE SPECIMENOrdering Facility: [facility] Address: [address] [place] [address] Performed By: #### L [id number] ####[facility] [id number] [place] [address] [place] pH (U) 7.0 [pH] Normal 5.0-8.0 [facility] Comment on above: Order Comment: Speci men Type: URINE SPECIMENOrdering Facility: [facility] Address: [address] [place] [address] Performed By: #### L [id number] ####[facility] [id number] [place] [address] [place] Protein (U) [Mass/Vol] Negative Normal Trace, Negative [facility] Comment on above: Order Comment: Speci men Type: URINE SPECIMENOrdering Facility: [facility] Address: [address] [place] [address] Performed By: #### L [id number] ####[facility] [id number] [place] [address] [place] Specific gravity (U) [Rel density] 1.010 Normal 1.005-1.030 [facility] Comment on above: Order Comment: Speci men Type: URINE SPECIMENOrdering Facility: [facility] Address: [address] [place] [address] Performed By: #### L [id number] ####[facility] [id number] [place] [address] [place] Urobilinogen Ql (U) Normal Normal Normal [facility] Comment on above: Order Comment: Speci men Type: URINE SPECIMENOrdering Facility: [facility] Address: [address] [place] [address] Performed By: #### L [id number] ####[facility] [id number] [place] [address] [place] Urinalysis complete panel (U )on 07-06-2023 Bacteria LM.HPF (Urine sed) [#/Area] Negative Normal Negative [facility] Comment on above: Order Comment: Speci men Type: URINE SPECIMENOrdering Facility: [facility] Address: [address] [place] [address] Performed By: #### 2 4356-8 ####[facility] [id number] [place] [address] [place] Bilirubin Ql (U) Negative Normal Negative [facility] Comment on above: Order Comment: Speci men Type: URINE SPECIMENOrdering Facility: [facility] Address: [address] [place] [address] Performed By: #### 2 4356-8 ####[facility] [id number] [place] [address] [place] Clarity (Unsp spec) Clear Normal Clear [facility] Comment on above: Order Comment: Speci men Type: URINE SPECIMENOrdering Facility: [facility] Address: [address] [place] [address] Performed By: #### 2 4356-8 ####[facility] [id number] [place] [address] [place] [address] [facility] Color (U) Yellow Normal Yellow [facility] Comment on above: Order Comment: Speci men Type: URINE SPECIMENOrdering Facility: [facility] Address: [address] [place] [address] Performed By: #### 2 4356-8 ####[facility] [id number] [place] [address] [place] Epithelial cells LM.HPF (Urine sed) [#/Area] None Seen Normal [facility] Comment on above: Order Comment: Speci men Type: URINE SPECIMENOrdering Facility: [facility] Address: [address] [place] [address] Performed By: #### 2 4356-8 ####[facility] LABCLIA [id number] [place] [address] [place] Glucose Test strip (U) [Mass/Vol] Negative Normal Negative [facility] Comment on above: Order Comment: Speci men Type: URINE SPECIMENOrdering Facility: [facility] Address: [address] [place] [address] Performed By: #### 2 4356-8 ####[facility] LABCLIA [id number] [place] [address] [place] Hemoglobin Ql (U) Negative Normal Negative [facility] Comment on above: Order Comment: Speci men Type: URINE SPECIMENOrdering Facility: [facility] Address: [address] [place] [address] Performed By: #### 2 4356-8 ####[facility] LABCLIA [id number] [place] [address] [place] Hyaline casts (Urine sed) [#/Area] 0 /[LPF] Normal 0 /LPF [facility] Comment on above: Order Comment: Speci men Type: URINE SPECIMENOrdering Facility: [facility] Address: [address] [place] [address] Performed By: #### 2 4356-8 ####[facility] LABCLIA [id number] [place] [address] [place] Ketones Ql (U) Negative Normal Negative [facility] Comment on above: Order Comment: Speci men Type: URINE SPECIMENOrdering Facility: [facility] Address: [address] [place] [address] Performed By: #### 2 4356-8 ####[facility] LABCLIA [id number] [place] [address] [place] Leukocyte esterase Test strip Ql (U) Negative Normal Negative [facility] Comment on above: Order Comment: Speci men Type: URINE SPECIMENOrdering Facility: [facility] Address: [address] [place] [address] Performed By: #### 2 4356-8 ####[facility] LABCLIA [id number] [place] [address] [place] Nitrite Ql (U) Negative Normal Negative [facility] Comment on above: Order Comment: Speci men Type: URINE SPECIMENOrdering Facility: [facility] Address: [address] [place] [address] Performed By: #### 2 4356-8 ####[facility]IA [id number] [place] [address] [place] pH (U) 7.5 [pH] Normal <8.5 [facility] Comment on above: Order Comment: Speci men Type: URINE SPECIMENOrdering Facility: [facility] Address: [address] [place] [address] Performed By: #### 2 4356-8 ####[facility]IA [id number] [place] [address] [place] Protein (U) [Mass/Vol] Negative Normal Negative [facility] Comment on above: Order Comment: Speci men Type: URINE SPECIMENOrdering Facility: [facility] Address: [address] [place] [address] Performed By: #### 2 4356-8 ####[facility]IA [id number] [place] [address] [place] RBC LM.HPF (Urine sed) [#/Area] 0-2 /HPF Normal 0-2 /HPF [facility] Comment on above: Order Comment: Speci men Type: URINE SPECIMENOrdering Facility: [facility] Address: [address] [place] [address] Performed By: #### 2 4356-8 ####[facility] [id number] [place] [address] [place] Specific gravity (U) [Rel density] 1.020 Normal 1.005-1.030 [facility] Comment on above: Order Comment: Speci men Type: URINE SPECIMENOrdering Facility: [facility] Address: [address] [place] [address] Performed By: #### 2 4356-8 ####[facility] [id number] [place] [address] [place] Urobilinogen Ql (U) 1.0 EU/dL Normal 0.2-1.0 EU/dL [facility] Comment on above: Order Comment: Speci men Type: URINE SPECIMENOrdering Facility: [facility] Address: [address] [place] [address] Performed By: #### 2 4356-8 ####[facility] [id number] [place] [address] [place] WBC LM.HPF (Urine sed) [#/Area] 0-5 /HPF Normal 0-5 /HPF [facility] Comment on above: Order Comment: Speci men Type: URINE SPECIMENOrdering Facility: [facility] Address: [address] [place] [address] Performed By: #### 2 4356-8 ####[facility] [id number] [place] [address] [place] XR CHEST 2V FRONTAL/LATon XR CHEST 2V FRONTAL/LAT Normal [facility] Glucose Test strip manual (B ld) [Mass/Vol]on 07-03-2023 Glucose [Mass/Vol] 121 mg/dL High 74 - 99 mg/dL [facility] Interpretation and review of laboratory results Abnormal [facility] Glucose [Mass/Vol] 121 mg/dL High 74-99 [facility] Comment on above: Performed By: #### 2 4356-8 #### MELISA Galvan ([id number]) [facility] () [address] [place] [address] CBC panel Auto (Bld)on 07-01 Erythrocyte distribution width (RBC) [Ratio] 13.4 % 11.5 - 14.5 % [facility] Hematocrit (Bld) [Volume fraction] 35.5 % Low 36.0 - 46.0 % [facility] Hemoglobin (Bld) [Mass/Vol] 11.8 g/dL Low 12.0 - 16.0 g/dL [facility] Interpretation and review of laboratory results Abnormal [facility] MCH (RBC) [Entitic mass] 30.3 pg 26.0 - 34.0 pg [facility] MCHC (RBC) [Mass/Vol] 33.2 g/dL 32.0 - 36.0 g/dL [facility] MCV (RBC) [Entitic vol] 91 fL 80 - 100 fL [facility] Nucleated RBC/100 WBC (Bld) [Ratio] 0.0 % [facility] Platelets (Bld) [#/Vol] 223 10*3/uL [facility] RBC (Bld) [#/Vol] 3.89 10*6/uL Low [facility] WBC (Bld) [#/Vol] 4.5 10*3/uL [facility] Erythrocyte distribution width (RBC) [Ratio] 13.4 % Normal 11.5-14.5 [facility] Comment on above: Performed By: #### 2 4356-8 #### MELISA Galvan ([id number]) [facility] () [address] [place] [address] Hematocrit (Bld) [Volume fraction] 35.5 % Low 36.0-46.0 [facility] Comment on above: Performed By: #### 2 4356-8 #### MELISA Galvan (33743) [facility] () [address] [place] [address] Hemoglobin (Bld) [Mass/Vol] 11.8 g/dL Low 12.0-16.0 [facility] Comment on above: Performed By: #### 2 4356-8 #### MELISA Galvan (63772) [facility] () [address] [place] [address] MCH (RBC) [Entitic mass] 30.3 pg Normal 26.0-34.0 [facility] Comment on above: Performed By: #### 2 4356-8 #### MELISA Galvan ([id number]) [facility] () [address] [place] [address] MCHC (RBC) [Mass/Vol] 33.2 g/dL Normal 32.0-36.0 [facility] Comment on above: Performed By: #### 2 4356-8 #### MELISA Galvan (39683) [facility] () [address] [place] [address] MCV (RBC) [Entitic vol] 91 fL Normal 80-100 [facility] Comment on above: Performed By: #### 2 4356-8 #### MELISA Galvan (59391) [facility] () [address] [place] [address] Nucleated RBC/100 WBC (Bld) [Ratio] 0.0 /100 WBCs Normal 0.0-0.0 [facility] Comment on above: Performed By: #### 2 4356-8 #### MELISA Galvan (56068) [facility] () [address] [place] [address] Platelets (Bld) [#/Vol] 223 x10*3/uL Normal 150-450 [facility] Comment on above: Performed By: #### 2 4356-8 #### MELISA Galvan (59498) [facility] () [address] [place] [address] RBC (Bld) [#/Vol] 3.89 x10*6/uL Low 4.00-5.20 [facility] Comment on above: Performed By: #### 2 4356-8 #### MELISA Galvan (20645) [facility] () [address] [place] [address] WBC (Bld) [#/Vol] 4.5 x10*3/uL Normal 4.4-11.3 [facility] Comment on above: Performed By: #### 2 4356-8 #### MELISA Galvan (71869) [facility] () [address] [place] [address] Glucose Test strip manual (B ld) [Mass/Vol]on 07-02-2023 Glucose [Mass/Vol] 103 mg/dL High 74 - 99 mg/dL [facility] Interpretation and review of laboratory results Abnormal [facility] Glucose [Mass/Vol] 103 mg/dL High 74-99 [facility] Comment on above: Performed By: #### 2 4356-8 #### MELISA Galvan (86515) [facility] () [address] [place] [address] Glucose [Mass/Vol] 112 mg/dL High 74 - 99 mg/dL [facility] Interpretation and review of laboratory results Abnormal [facility] Glucose [Mass/Vol] 112 mg/dL High 74-99 [facility] Comment on above: Performed By: #### 2 4356-8 #### MELISA Galvan (64756) [facility] () [address] [place] [address] Glucose [Mass/Vol] 99 mg/dL 74 - 99 mg/dL [facility] Interpretation and review of laboratory results Normal [facility] Glucose [Mass/Vol] 99 mg/dL Normal 74-99 [facility] Comment on above: Performed By: #### 2 4356-8 #### MELISA Galvan (87895) [facility] () [address] [place] [address] Glucose [Mass/Vol] 135 mg/dL High 74 - 99 mg/dL [facility] Interpretation and review of laboratory results Abnormal [facility] Glucose [Mass/Vol] 135 mg/dL High 74-99 [facility] Comment on above: Performed By: #### 2 4356-8 #### MELISA Galvan (97718) [facility] () [address] [place] [address] Renal function 2000 panelon 07-02-2023 Albumin [Mass/Vol] 4.0 g/dL 3.5 - 5.0 g/dL [facility] Anion gap [Moles/Vol] 11 mmol/L NINF - 19 mmol/L [facility] Calcium [Mass/Vol] 8.6 mg/dL 8.5 - 10.4 mg/dL [facility] Chloride [Moles/Vol] 103 mmol/L 97 - 107 mmol/L [facility] CO2 [Moles/Vol] 23 mmol/L Low 24 - 31 mmol/L [facility] Creatinine [Mass/Vol] 0.70 mg/dL 0.40 - 1.60 mg/dL [facility] eGFR - PINF [facility] Comment on above: Calculations of jessica mated GFR are performed using the 2020 CKD-EPI Study Refit equation without the race variable for the IDMS-Traceable creatinine methods. https://jasn.asnjournals.org/content//ASN.91629285 88 Glucose [Mass/Vol] 101 mg/dL High 65 - 99 mg/dL [facility] Interpretation and review of laboratory results Abnormal [facility] Phosphate [Mass/Vol] 4.0 mg/dL 2.5 - 4.5 mg/dL [facility] Potassium [Moles/Vol] 3.9 mmol/L 3.4 - 5.1 mmol/L [facility] Sodium [Moles/Vol] 137 mmol/L 133 - 145 mmol/L [facility] Urea nitrogen [Mass/Vol] 13 mg/dL 8 - 25 mg/dL [facility] Albumin [Mass/Vol] 4.0 g/dL Normal 3.5-5.0 [facility] Comment on above: Performed By: #### 2 4356-8 #### MELISA Galvan (22390) [facility] () [address] [place] [address] Anion gap [Moles/Vol] 11 mmol/L Normal <=19 [facility] Comment on above: Performed By: #### 2 4356-8 #### MELISA Galvan (03777) [facility] () [address] [place] [address] Calcium [Mass/Vol] 8.6 mg/dL Normal 8.5-10.4 [facility] Comment on above: Performed By: #### 2 4356-8 #### MELISA Galvan (12635) [facility] () [address] [place] [address] Chloride [Moles/Vol] 103 mmol/L Normal 97-107 [facility] Comment on above: Performed By: #### 2 4356-8 #### MELISA Galvan (46294) [facility] () [address] [place] [address] CO2 [Moles/Vol] 23 mmol/L Low 24-31 [facility] Comment on above: Performed By: #### 2 4356-8 #### MELISA Galvan (00696) [facility] () [address] [place] [address] Creatinine [Mass/Vol] 0.70 mg/dL Normal 0.40-1.60 [facility] Comment on above: Performed By: #### 2 4356-8 #### MELISA Galvan (60257) [facility] () [address] [place] [address] GFR/1.73 sq M.predicted MDRD (S/P/Bld) [Vol rate/Area] mL/min/{1.73_m2} Normal >60 [facility] Comment on above: Result Comment: Calc ulations of estimated GFR are performed using the 2020 CKD-EPI Study Refit equation without the race variable for the IDMS-Traceable creatinine methods. https://jasn.asnjournals.org/content//ASN.86435372 88 Performed By: #### 2 4356-8 #### MELISA Galvan (75410) [facility] () [address] [place] [address] Glucose [Mass/Vol] 101 mg/dL High 65-99 [facility] Comment on above: Performed By: #### 2 4356-8 #### MELISA Galvan (01844) [facility] () [address] [place] [address] Phosphate [Mass/Vol] 4.0 mg/dL Normal 2.5-4.5 [facility] Comment on above: Performed By: #### 2 4356-8 #### MELISA Galvan (04697) [facility] () [address] [place] [address] Potassium [Moles/Vol] 3.9 mmol/L Normal 3.4-5.1 [facility] Comment on above: Performed By: #### 2 4356-8 #### MELISA Galvan (81270) [facility] () [address] [place] [address] Sodium [Moles/Vol] 137 mmol/L Normal 133-145 [facility] Comment on above: Performed By: #### 2 4356-8 #### MELISA Galvan (49181) [facility] () [address] [place] [address] Urea nitrogen [Mass/Vol] 13 mg/dL Normal 8-25 [facility] Comment on above: Performed By: #### 2 4356-8 #### MELISA Galvan (83280) [facility] () [address] [place] [address] CBC panel Auto (Bld)on 06-30 Erythrocyte distribution width (RBC) [Ratio] 13.7 % 11.5 - 14.5 % [facility] Hematocrit (Bld) [Volume fraction] 36.7 % 36.0 - 46.0 % [facility] Hemoglobin (Bld) [Mass/Vol] 12.0 g/dL 12.0 - 16.0 g/dL [facility] Interpretation and review of laboratory results Abnormal [facility] MCH (RBC) [Entitic mass] 31.1 pg 26.0 - 34.0 pg [facility] MCHC (RBC) [Mass/Vol] 32.7 g/dL 32.0 - 36.0 g/dL [facility] MCV (RBC) [Entitic vol] 95 fL 80 - 100 fL [facility] Nucleated RBC/100 WBC (Bld) [Ratio] 0.0 % [facility] Platelets (Bld) [#/Vol] 228 10*3/uL [facility] RBC (Bld) [#/Vol] 3.86 10*6/uL [facility] WBC (Bld) [#/Vol] 3.3 10*3/uL [facility] Erythrocyte distribution width (RBC) [Ratio] 13.7 % Normal 11.5-14.5 [facility] Comment on above: Performed By: #### 5 8410-2 #### MELISA Galvan ([id number]) [facility] () [address] [place] [address] Hematocrit (Bld) [Volume fraction] 36.7 % Normal 36.0-46.0 [facility] Comment on above: Performed By: #### 5 8410-2 #### MELISA Galvan ([id number]) [facility] () [address] [place] [address] Hemoglobin (Bld) [Mass/Vol] 12.0 g/dL Normal 12.0-16.0 [facility] Comment on above: Performed By: #### 5 8410-2 #### MELISA Galvan ([id number]) [facility] () [address] [place] [address] MCH (RBC) [Entitic mass] 31.1 pg Normal 26.0-34.0 [facility] Comment on above: Performed By: #### 5 8410-2 #### MELISA Galvan ([id number]) [facility] () [address] [place] [address] MCHC (RBC) [Mass/Vol] 32.7 g/dL Normal 32.0-36.0 [facility] Comment on above: Performed By: #### 5 8410-2 #### MELISA Galvan ([id number]) [facility] () [address] [place] [address] MCV (RBC) [Entitic vol] 95 fL Normal 80-100 [facility] Comment on above: Performed By: #### 5 8410-2 #### MELISA Galvan ([id number]) [facility] () [address] [place] [address] Nucleated RBC/100 WBC (Bld) [Ratio] 0.0 /100 WBCs Normal 0.0-0.0 [facility] Comment on above: Performed By: #### 5 8410-2 #### MELISA Galvan ([id number]) [facility] () [address] [place] [address] Platelets (Bld) [#/Vol] 228 x10*3/uL Normal 150-450 [facility] Comment on above: Performed By: #### 5 8410-2 #### MELISA Galvan (44074) [facility] () [address] [place] [address] RBC (Bld) [#/Vol] 3.86 x10*6/uL Low 4.00-5.20 [facility] Comment on above: Performed By: #### 5 8410-2 #### MELISA Galvan ([id number]) [facility] () [address] [place] [address] WBC (Bld) [#/Vol] 3.3 x10*3/uL Low 4.4-11.3 [facility] Comment on above: Performed By: #### 5 8410-2 #### MELISA Galvan ([id number]) [facility] () [address] [place] [address] Glucose Test strip manual (B ld) [Mass/Vol]on 07-01-2023 Glucose [Mass/Vol] 104 mg/dL High 74 - 99 mg/dL [facility] Interpretation and review of laboratory results Abnormal [facility] Glucose [Mass/Vol] 104 mg/dL High 74-99 [facility] Comment on above: Performed By: #### 5 8410-2 #### MELISA Galvan ([id number]) [facility] () [address] [place] [address] Glucose [Mass/Vol] 92 mg/dL 74 - 99 mg/dL [facility] Interpretation and review of laboratory results Normal [facility] Glucose [Mass/Vol] 92 mg/dL Normal 74-99 [facility] Comment on above: Performed By: #### 5 8410-2 #### MELISA Galvan ([id number]) [facility] () [address] [place] [address] Glucose [Mass/Vol] 88 mg/dL 74 - 99 mg/dL [facility] Interpretation and review of laboratory results Normal [facility] Glucose [Mass/Vol] 88 mg/dL Normal 74-99 [facility] Comment on above: Performed By: #### 5 8410-2 #### MELISA Galvan ([id number]) [facility] () [address] [place] [address] Glucose [Mass/Vol] 105 mg/dL High 74 - 99 mg/dL [facility] Interpretation and review of laboratory results Abnormal [facility] Glucose [Mass/Vol] 105 mg/dL High 74-99 [facility] Comment on above: Performed By: #### 5 8410-2 #### MELISA Galvan ([id number]) [facility] () [address] [place] [address] Glucose [Mass/Vol] 86 mg/dL 74 - 99 mg/dL [facility] Interpretation and review of laboratory results Normal [facility] Glucose [Mass/Vol] 86 mg/dL Normal 74-99 [facility] Comment on above: Performed By: #### 5 8410-2 #### MELISA Galvan ([id number]) [facility] () [address] [place] [address] Glucose [Mass/Vol] 98 mg/dL 74 - 99 mg/dL [facility] Interpretation and review of laboratory results Normal [facility] Glucose [Mass/Vol] 98 mg/dL Normal 74-99 [facility] Comment on above: Performed By: #### 5 8410-2 #### MELISA Galvan ([id number]) [facility] () [address] [place] [address] [facility] 2023 Home Health Records [phone] [id number] 0#[id number] Normal [facility] Magnesiumon 07-01-2023 Magnesium [Mass/Vol] 2.00 mg/dL 1.60 - 3.10 mg/dL [facility] Magnesium [Mass/Vol] 2.00 mg/dL Normal 1.60-3.10 [facility] Comment on above: Performed By: #### 5 8410-2 #### MELISA Galvan ([id number]) [facility] () [address] [place] [address] Magnesium [Mass/Vol]on 06-30 Interpretation and review of laboratory results Normal [facility] Renal function 2000 panelon 07-01-2023 Albumin [Mass/Vol] 3.8 g/dL 3.5 - 5.0 g/dL Un [facility] Anion gap [Moles/Vol] 12 mmol/L NINF - 19 mmol/L [facility] Calcium [Mass/Vol] 8.5 mg/dL 8.5 - 10.4 mg/dL [facility] Chloride [Moles/Vol] 106 mmol/L 97 - 107 mmol/L [facility] CO2 [Moles/Vol] 21 mmol/L Low 24 - 31 mmol/L [facility] Creatinine [Mass/Vol] 0.70 mg/dL 0.40 - 1.60 mg/dL [facility] eGFR - PINF [facility] Comment on above: Calculations of jessica mated GFR are performed using the 2020 CKD-EPI Study Refit equation without the race variable for the IDMS-Traceable creatinine methods. https://jasn.asnjournals.org/content//ASN.96220363 88 Glucose [Mass/Vol] 113 mg/dL High 65 - 99 mg/dL [facility] Interpretation and review of laboratory results Abnormal [facility] Phosphate [Mass/Vol] 5.4 mg/dL High 2.5 - 4.5 mg/dL [facility] Potassium [Moles/Vol] 3.9 mmol/L 3.4 - 5.1 mmol/L [facility] Sodium [Moles/Vol] 139 mmol/L 133 - 145 mmol/L [facility] Urea nitrogen [Mass/Vol] 12 mg/dL 8 - 25 mg/dL [facility] Albumin [Mass/Vol] 3.8 g/dL Normal 3.5-5.0 [facility] Comment on above: Performed By: #### 5 8410-2 #### EMLISA Galvan ([id number]) [facility] (MW) [address] [place] [address] Anion gap [Moles/Vol] 12 mmol/L Normal <=19 [facility] Comment on above: Performed By: #### 5 8410-2 #### MELISA Galvan ([id number]) [facility] () [address] [place] [address] Calcium [Mass/Vol] 8.5 mg/dL Normal 8.5-10.4 [facility] Comment on above: Performed By: #### 5 8410-2 #### MELISA Galvan ([id number]) [facility] () [address] [place] [address] Chloride [Moles/Vol] 106 mmol/L Normal 97-107 [facility] Comment on above: Performed By: #### 5 8410-2 #### MELISA Galvan (47902) [facility] () [address] [place] [address] CO2 [Moles/Vol] 21 mmol/L Low 24-31 [facility] Comment on above: Performed By: #### 5 8410-2 #### MELISA Galvan (64462) [facility] () [address] [place] [address] Creatinine [Mass/Vol] 0.70 mg/dL Normal 0.40-1.60 [facility] Comment on above: Performed By: #### 5 8410-2 #### MELISA Galvan ([id number]) [facility] () [address] [place] [address] GFR/1.73 sq M.predicted MDRD (S/P/Bld) [Vol rate/Area] mL/min/{1.73_m2} Normal >60 [facility] Comment on above: Result Comment: Calc ulations of estimated GFR are performed using the 2020 CKD-EPI Study Refit equation without the race variable for the IDMS-Traceable creatinine methods. https://jasn.asnjournals.org/content///ASN.96415104 88 Performed By: #### 5 8410-2 #### MEILSA Galvan ([id number]) [facility] () [address] [place] [address] Glucose [Mass/Vol] 113 mg/dL High 65-99 [facility] Comment on above: Performed By: #### 5 8410-2 #### MELISA Galvan ([id number]) [facility] () [address] [place] [address] Phosphate [Mass/Vol] 5.4 mg/dL High 2.5-4.5 [facility] Comment on above: Performed By: #### 5 8410-2 #### MELISA Galvan (04504) [facility] () [address] [place] [address] Potassium [Moles/Vol] 3.9 mmol/L Normal 3.4-5.1 [facility] Comment on above: Performed By: #### 5 8410-2 #### MELISA Galvan ([id number]) [facility] () [address] [place] [address] Sodium [Moles/Vol] 139 mmol/L Normal 133-145 [facility] Comment on above: Performed By: #### 5 8410-2 #### MELISA Galvan ([id number]) [facility] () [address] [place] [address] Urea nitrogen [Mass/Vol] 12 mg/dL Normal 8-25 [facility] Comment on above: Performed By: #### 5 8410-2 #### MELISA Galvan ([id number]) [facility] () [address] [place] [address] Vascular US mesenteric arter y duplex completeon 07-01-2023 [facility] [address] [place] [address] Vascular Lab Report VASC US MESENTERIC ARTERY DUPLEX COMPLETE Patient Name: ABBEY Oneil Physician: [id number] Sherry Magaña MD Study Date: 06/30/2023 Ordering Provider: [id number] JAMIL GAVIN MRN/PID: [id number] Fellow: Technologist: Leia Kepich RVT Date of /Age: 2 1990 / 33 years Technologist 2: Gender: F Admission Status: Inpatient Location Performed: [facility] 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 Report Amended Report Amended By: [id number] Magaña MD Date and Time: 06/30/2023 at 12:15:01 PM CONCLUSIONS: Mesenteric: Celiac artery demonstrates no evidence of hemodynamically significant stenosis, SMA demonstrates no evidence of hemodynamically significant stenosis and the KEELY appears widely patent. The patient was NPO for this study. There is turbulent flow noted throughout the celiac artery; Dr. Magaña is aware of this finding. Optimization of the celiac artery is sub optimal due to extensive bowel gas. Unable to visualize the splenic and hepatic arteries due to bowel gas. The celiac artery with maneuvers measures 96 cm/s. Additional Findings: Technically difficult exam due to bowel gas. Comparison: Compared with study from 01/14/2023, no significant change.Unable to rule out median arcuate ligament compression in the previous exam. Imaging & Doppler Findings: Aorta PSV 102 cm/s Celiac Origin PSV 92 cm/s Celiac Prox PSV 103 cm/s Celiac Mid PSV 154 cm/s Celiac Dist PSV 188 cm/s SMA Origin PSV 57 cm/s SMA Prox PSV 92 cm/s SMA Mid PSV 110 cm/s SMA Dist PSV 89 cm/s KEELY PSV 105 cm/s [id number] Magaña [place] [id number] Magaña MD Electronically Amended 06/30/2023, 12:15 PM Final (Amended) Sherry Santillan MD - 07/01/2023 [place] [id number] Vascular Lab Report VASC US MESENTERIC ARTERY DUPLEX COMPLETE Patient Name: ABBEY FloresRenetta Oneil Physician: [id number] Magaña MD Study Date: 06/30/2023 Ordering Provider: [id number] JAMIL GAVIN MRN/PID: [id number] Fellow: Technologist: Leia Degroot RVNeva Date of /Age: 2 1990 / 33 years Technologist 2: Gender: F Admission Status: Inpatient Location Performed: [facility] 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 Report Amended Report Amended By: [id number] Magaña MD Date and Time: 06/30/2023 at 12:15:01 PM CONCLUSIONS: Mesenteric: Celiac artery demonstrates no evidence of hemodynamically significant stenosis, SMA demonstrates no evidence of hemodynamically significant stenosis and the KEELY appears widely patent. The patient was NPO for this study. There is turbulent flow noted throughout the celiac artery; Dr. Magaña is aware of this finding. Optimization of the celiac artery is sub optimal due to extensive bowel gas. Unable to visualize the splenic and hepatic arteries due to bowel gas. The celiac artery with maneuvers measures 96 cm/s. Additional Findings: Technically difficult exam due to bowel gas. Comparison: Compared with study from 01/14/2023, no significant change.Unable to rule out median arcuate ligament compression in the previous exam. Imaging & Doppler Findings: Aorta PSV 102 cm/s Celiac Origin PSV 92 cm/s Celiac Prox PSV 103 cm/s Celiac Mid PSV 154 cm/s Celiac Dist PSV 188 cm/s SMA Origin PSV 57 cm/s SMA Prox PSV 92 cm/s SMA Mid PSV 110 cm/s SMA Dist PSV 89 cm/s KEELY PSV 105 cm/s [id number] Magaña MD Brandy Magaña MD Electronically Amended 06/30/2023, 12:15 PM Final (Amended) [facility] Work Phone: [facility] Work Phone: XR CHEST 1 VIEWon 07-01-2023 XR CHEST 1 VIEW Interpreted By: Dotty Salcido, STUDY: XR CHEST 1 VIEW 07/01/2023 1:30 pm INDICATION: Signs/Symptoms:PICC line position verification COMPARISON: 03/17/2023 ACCESSION NUMBER(S): [id number] ORDERING CLINICIAN: DOLORES COX TECHNIQUE: Single AP view chest FINDINGS: Cardiomediastinal silhouette is within normal limits. Right-sided PICC line identified with tip in the region of the mid SVC. No infiltrate or effusion is identified. Visualized osseous structures unremarkable. IMPRESSION: 1. Right PICC line placement with tip in the mid SVC. Signed by: Dotty Salcido 07/01/2023 1:46 PM Dictation workstation: [employer] [facility] XR Chest Single viewon 06-30 1. Right PICC line placement with tip in the mid SVC. Signed by: Dotty Salcido 07/01/2023 1:46 PM Dictation workstation: [employer] MMODAL Interpreted By: Dotty Salcido, STUDY: XR CHEST 1 VIEW 07/01/2023 1:30 pm INDICATION: Signs/Symptoms:PICC line position verification COMPARISON: 03/17/2023 ACCESSION NUMBER(S): [id number] ORDERING CLINICIAN: DOLORES COX TECHNIQUE: Single AP view chest FINDINGS: Cardiomediastinal silhouette is within normal limits. Right-sided PICC line identified with tip in the region of the mid SVC. No infiltrate or effusion is identified. Visualized osseous structures unremarkable. [facility] MMODAL Dotty Salcido MD - 07/01/2023 Interpreted By: Dotty Salcido, STUDY: XR CHEST 1 VIEW 07/01/2023 1:30 pm INDICATION: Signs/Symptoms:PICC line position verification COMPARISON: 03/17/2023 ACCESSION NUMBER(S): [id number] ORDERING CLINICIAN: DOLORES COX TECHNIQUE: Single AP view chest FINDINGS: Cardiomediastinal silhouette is within normal limits. Right-sided PICC line identified with tip in the region of the mid SVC. No infiltrate or effusion is identified. Visualized osseous structures unremarkable. IMPRESSION: 1. Right PICC line placement with tip in the mid SVC. Signed by: Dotty Salcido 07/01/2023 1:46 PM Dictation workstation: [id number] [facility] Work Phone: Radiology Study observation (narrative) [facility] Work Phone: XR Chest Single viewOrdered By: Dotty Salcido on 07-01-2023 [facility] Work Phone: CBC panel Auto (Bld)on 06-29 Erythrocyte distribution width (RBC) [Ratio] 13.8 % 11.5 - 14.5 % [facility] Hematocrit (Bld) [Volume fraction] 32.2 % Low 36.0 - 46.0 % [facility] Hemoglobin (Bld) [Mass/Vol] 10.8 g/dL Low 12.0 - 16.0 g/dL [facility] Interpretation and review of laboratory results Abnormal [facility] MCH (RBC) [Entitic mass] 31.0 pg 26.0 - 34.0 pg [facility] MCHC (RBC) [Mass/Vol] 33.5 g/dL 32.0 - 36.0 g/dL [facility] MCV (RBC) [Entitic vol] 93 fL 80 - 100 fL [facility] Nucleated RBC/100 WBC (Bld) [Ratio] 0.0 % [facility] Platelets (Bld) [#/Vol] 217 10*3/uL [facility] RBC (Bld) [#/Vol] 3.48 10*6/uL Low [facility] WBC (Bld) [#/Vol] 5.0 10*3/uL [facility] Erythrocyte distribution width (RBC) [Ratio] 13.8 % Normal 11.5-14.5 [facility] Comment on above: Performed By: #### 5 8410-2 ####MELISA Galvan ([id number])[facility] ()[address] [place] [address] Hematocrit (Bld) [Volume fraction] 32.2 % Low 36.0-46.0 [facility] Comment on above: Performed By: #### 5 8410-2 ####MELISA Galvan ([id number])[facility] ()[address] [place] [address] Hemoglobin (Bld) [Mass/Vol] 10.8 g/dL Low 12.0-16.0 [facility] Comment on above: Performed By: #### 5 8410-2 ####MELISA Galvan ()[facility] ()[address] [place] [address] MCH (RBC) [Entitic mass] 31.0 pg Normal 26.0-34.0 [facility] Comment on above: Performed By: #### 5 8410-2 ####MELISA Galvan ([id number])[facility] ()[address] [place] [address] MCHC (RBC) [Mass/Vol] 33.5 g/dL Normal 32.0-36.0 [facility] Comment on above: Performed By: #### 5 8410-2 ####MELISA Galvan ([id number])[facility] ()[address] [place] [address] MCV (RBC) [Entitic vol] 93 fL Normal 80-100 [facility] Comment on above: Performed By: #### 5 8410-2 ####MELISA Galvan ([id number])[facility] ()[address] [place] [address] Nucleated RBC/100 WBC (Bld) [Ratio] 0.0 /100 WBCs Normal 0.0-0.0 [facility] Comment on above: Performed By: #### 5 8410-2 ####MELISA Galvan ([id number])[facility] ()[address] [place] [address] Platelets (Bld) [#/Vol] 217 x10*3/uL Normal 150-450 [facility] Comment on above: Performed By: #### 5 8410-2 ####MELISA POOLESarwat Galvan ([id number])[facility] ()[address] [employer] Fort[employer] ServicesNORTHEAST [facility] [place] [address] RBC (Bld) [#/Vol] 3.48 x10*6/uL Low 4.00-5.20 [facility] Comment on above: Performed By: #### 5 8410-2 ####MELISA ALEXANDRO J ([id number])[facility] ()[address] [place] [place] Trade[place] [place] [address] WBC (Bld) [#/Vol] 5.0 x10*3/uL Normal 4.4-11.3 [facility] Comment on above: Performed By: #### 5 8410-2 ####MELISA Galvan ([id number])[facility] ()[address] [place] [address] [place] ANGIO ABDOMEN PELVIS W AN D/OR WO IV IV CONTRASTon 06-30-2023 CT ANGIO ABDOMEN PELVIS W AND/OR WO IV IV CONTRAST Interpreted By: Audie Gutierrez, STUDY: CT ANGIO ABDOMEN PELVIS W AND/OR WO IV IV CONTRAST; 06/30/2023 10:56 am INDICATION: Signs/Symptoms:Carmela ac disease; COMPARISON: 06/29/2023 ACCESSION NUMBER(S): [id number] ORDERING CLINICIAN: TIFFANIE MENDEZ TECHNIQUE: Contiguous axial images of the abdomen/pelvis were performed with IV contrast. 75 ml of Omnipaque 350 was utilized. Coronal and sagittal reformatted images were also obtained. All CT examinations are performed with 1 or more of the following dose reduction techniques: Automated exposure control, adjustment of mA and/or kv according to patient's size, or use of iterative reconstruction techniques. FINDINGS: The liver, common bile duct, pancreas, spleen, and adrenal glands are stable in appearance. Multiple hypodense lesions consistent with hepatic cysts are again seen. Prior cholecystectomy is again noted. The kidneys enhance symmetrically. No urolithiasis is seen. No hydroureteronephros is is seen. The visualized aorta is within normal limits. The celiac artery and branches appear patent. The SMA, renal arteries, and inferior mesenteric artery are patent. Normal common iliac and external iliac arteries. Patent internal iliac arteries. Patent vasculature. Additionally, portal venous phase imaging shows normal appearance of the venous structures. 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 There is a jejunostomy tube in place. Small bowel is non-dilated. The appendix is not definitely visualized. Colon is unremarkable with no evidence for acute inflammatory process. No free intraperitoneal air or fluid is seen. The bladder is minimally distended and contains a Long catheter The visualized osseous structures are intact. Limited images of the lower thorax are unremarkable. IMPRESSION: CT angiogram of the abdomen and pelvis is within normal limits. Patent vasculature as described. Stable appearance of gastric bypass surgery and jejunostomy tube. No abnormal bowel dilatation nor acute inflammatory process is seen. Signed by: Audie Gutierrez 06/30/2023 12:06 PM Dictation workstation: [id number] [facility] Comment on above: Order Comment: CTA, turbulent flow of the celiac artery noted on duplex CTA Abdominal vessels and Pe lvis vessels WO and W contrast Brenden 06-30-2023 CT angiogram of the abdomen and pelvis is within normal limits. Patent vasculature as described. Stable appearance of gastric bypass surgery and jejunostomy tube. No abnormal bowel dilatation nor acute inflammatory process is seen. Signed by: Audie Gutierrez 06/30/2023 12:06 PM Dictation workstation: [id number] Interpreted By: Audie Gutierrez, STUDY: CT ANGIO ABDOMEN PELVIS W AND/OR WO IV IV CONTRAST; 06/30/2023 10:56 am INDICATION: Signs/Symptoms:Carmela ac disease; COMPARISON: 06/29/2023 ACCESSION NUMBER(S): [id number] ORDERING CLINICIAN: TIFFANIE MENDEZ TECHNIQUE: Contiguous axial images of the abdomen/pelvis were performed with IV contrast. 75 ml of Omnipaque 350 was utilized. Coronal and sagittal reformatted images were also obtained. All CT examinations are performed with 1 or more of the following dose reduction techniques: Automated exposure control, adjustment of mA and/or kv according to patient's size, or use of iterative reconstruction techniques. FINDINGS: The liver, common bile duct, pancreas, spleen, and adrenal glands are stable in appearance. Multiple hypodense lesions consistent with hepatic cysts are again seen. Prior cholecystectomy is again noted. The kidneys enhance symmetrically. No urolithiasis is seen. No hydroureteronephros is is seen. The visualized aorta is within normal limits. The celiac artery and branches appear patent. The SMA, renal arteries, and inferior mesenteric artery are patent. Normal common iliac and external iliac arteries. Patent internal iliac arteries. Patent vasculature. Additionally, portal venous phase imaging shows normal appearance of the venous structures. 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 There is a jejunostomy tube in place. Small bowel is non-dilated. The appendix is not definitely visualized. Colon is unremarkable with no evidence for acute inflammatory process. No free intraperitoneal air or fluid is seen. The bladder is minimally distended and contains a Long catheter The visualized osseous structures are intact. Limited images of the lower thorax are unremarkable. [facility] Audie Gutierrez MD - 06/30/2023 Interpreted By: Audie Gutierrez, STUDY: CT ANGIO ABDOMEN PELVIS W AND/OR WO IV IV CONTRAST; 06/30/2023 10:56 am INDICATION: Signs/Symptoms:Carmela ac disease; COMPARISON: 06/29/2023 ACCESSION NUMBER(S): [id number] ORDERING CLINICIAN: TIFFANIE MENDEZ TECHNIQUE: Contiguous axial images of the abdomen/pelvis were performed with IV contrast. 75 ml of Omnipaque 350 was utilized. Coronal and sagittal reformatted images were also obtained. All CT examinations are performed with 1 or more of the following dose reduction techniques: Automated exposure control, adjustment of mA and/or kv according to patient's size, or use of iterative reconstruction techniques. FINDINGS: The liver, common bile duct, pancreas, spleen, and adrenal glands are stable in appearance. Multiple hypodense lesions consistent with hepatic cysts are again seen. Prior cholecystectomy is again noted. The kidneys enhance symmetrically. No urolithiasis is seen. No hydroureteronephros is is seen. The visualized aorta is within normal limits. The celiac artery and branches appear patent. The SMA, renal arteries, and inferior mesenteric artery are patent. Normal common iliac and external iliac arteries. Patent internal iliac arteries. Patent vasculature. Additionally, portal venous phase imaging shows normal appearance of the venous structures. 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 There is a jejunostomy tube in place. Small bowel is non-dilated. The appendix is not definitely visualized. Colon is unremarkable with no evidence for acute inflammatory process. No free intraperitoneal air or fluid is seen. The bladder is minimally distended and contains a Long catheter The visualized osseous structures are intact. Limited images of the lower thorax are unremarkable. IMPRESSION: CT angiogram of the abdomen and pelvis is within normal limits. Patent vasculature as described. Stable appearance of gastric bypass surgery and jejunostomy tube. No abnormal bowel dilatation nor acute inflammatory process is seen. Signed by: Audie Gutierrez 06/30/2023 12:06 PM Dictation workstation: [id number] [facility] Work Phone: Radiology Study observation (narrative) [facility] Work Phone: CTA Abdominal vessels and Pe lvis vessels WO and W contrast IVOrdered By: Audie Gutierrez on 06-30-2023 [facility] Work Phone: Comprehensive metabolic 2000 panelOrdered By: Cristina Blevins on 06-30-2023 Albumin [Mass/Vol] 3.8 g/dL 3.5 - 5.0 g/dL [facility] (Bld[facility] [Catalytic activity/Vol] 51 U/L 35 - 125 U/L [facility] ALT [Catalytic activity/Vol] 35 U/L 5 - 40 U/L [facility] Anion gap [Moles/Vol] 13 mmol/L NINF - 19 mmol/L [facility] AST [Catalytic activity/Vol] 52 U/L High 5 - 40 U/L [facility] Bilirubin [Mass/Vol] mg/dL 0.1 - 1.2 mg/dL [facility] Calcium [Mass/Vol] 9.1 mg/dL 8.5 - 10.4 mg/dL [facility] Chloride [Moles/Vol] 90 mmol/L Low 97 - 107 mmol/L [facility] CO2 [Moles/Vol] 19 mmol/L Low 24 - 31 mmol/L [facility] Creatinine [Mass/Vol] 0.70 mg/dL 0.40 - 1.60 mg/dL [facility] eGFR - PINF [facility] Comment on above: Calculations of jessica mated GFR are performed using the 2020 CKD-EPI Study Refit equation without the race variable for the IDMS-Traceable creatinine methods. https://jasn.asnjournals.org/content//ASN.49604606 88 Glucose [Mass/Vol] 920 mg/dL Critically high 65 - 99 mg/d L [facility] Comment on above: Result rechecked Possible IV contamination. Results do not correlate with previous and post results. Patient was redraw . Interpretation and review of laboratory results Abnormal [facility] Potassium [Moles/Vol] 6.8 mmol/L Critically high 3.4 - 5.1 mmol/L [facility] Comment on above: Result rechecked Possible IV contamination. Results do not correlate with previus and post results. Patient was redrawn. Protein [Mass/Vol] 6.3 g/dL 5.9 - 7.9 g/dL Un [facility] Sodium [Moles/Vol] 122 mmol/L Low 133 - 145 mmol/L [facility] Comment on above: Result rechecked Urea nitrogen [Mass/Vol] 15 mg/dL 8 - 25 mg/dL [facility] Comprehensive metabolic 2000 panelon 06-30-2023 Albumin [Mass/Vol] 3.8 g/dL 3.5 - 5.0 g/dL Un [facility] ALP (Bld) [Catalytic activity/Vol] 52 U/L 35 - 125 U/L [facility] ALT [Catalytic activity/Vol] 34 U/L 5 - 40 U/L [facility] Anion gap [Moles/Vol] 10 mmol/L NINF - 19 mmol/L [facility] AST [Catalytic activity/Vol] 43 U/L High 5 - 40 U/L [facility] Bilirubin [Mass/Vol] 0.3 mg/dL 0.1 - 1.2 mg/dL [facility] Calcium [Mass/Vol] 8.8 mg/dL 8.5 - 10.4 mg/dL [facility] Chloride [Moles/Vol] 104 mmol/L 97 - 107 mmol/L [facility] CO2 [Moles/Vol] 23 mmol/L Low 24 - 31 mmol/L [facility] Creatinine [Mass/Vol] 0.60 mg/dL 0.40 - 1.60 mg/dL [facility] eGFR - PINF [facility] Comment on above: Calculations of jessica mated GFR are performed using the 2020 CKD-EPI Study Refit equation without the race variable for the IDMS-Traceable creatinine methods. https://jasn.asnjournals.org/content//ASN.48733707 88 Glucose [Mass/Vol] 136 mg/dL High 65 - 99 mg/dL Uni [facility] Interpretation and review of laboratory results Abnormal [facility] Potassium [Moles/Vol] 3.9 mmol/L 3.4 - 5.1 mmol/L [facility] Protein [Mass/Vol] 6.3 g/dL 5.9 - 7.9 g/dL [facility] Sodium [Moles/Vol] 137 mmol/L 133 - 145 mmol/L [facility] Urea nitrogen [Mass/Vol] 14 mg/dL 8 - 25 mg/dL [facility] Albumin [Mass/Vol] 3.8 g/dL Normal 3.5-5.0 [facility] Comment on above: Performed By: #### 2 4323-8 ####MELISA Galvan ([id number])[facility] ()[address] [place] [address] ALP (Bld) [Catalytic activity/Vol] 52 U/L Normal 35-125 [facility] Comment on above: Performed By: #### 2 4323-8 ####MELISA Galvan ([id number])[facility] ()[address] [place] [address] ALT [Catalytic activity/Vol] 34 U/L Normal 5-40 [facility] Comment on above: Performed By: #### 2 4323-8 ####MELISA Galvan ([id number])[facility] ()[address] [place] [address] Anion gap [Moles/Vol] 10 mmol/L Normal <=19 [facility] Comment on above: Performed By: #### 2 4323-8 ####MELISA Galvan ([id number])[facility] ()[address] [place] [address] AST [Catalytic activity/Vol] 43 U/L High 5-40 [facility] Comment on above: Performed By: #### 2 432-8 ####MELISA Galvan ([id number])[facility] ()[address] [place] [address] Bilirubin [Mass/Vol] 0.3 mg/dL Normal 0.1-1.2 [facility] Comment on above: Performed By: #### 2 432-8 ####MELISA Galvan ([id number])[facility] ()[address] [place] [address] Calcium [Mass/Vol] 8.8 mg/dL Normal 8.5-10.4 [facility] Comment on above: Performed By: #### 2 432-8 ####MELISA Galvan ([id number])[facility] ()[address] [place] [address] Chloride [Moles/Vol] 104 mmol/L Normal 97-107 [facility] Comment on above: Performed By: #### 2 4323-8 ####MELISA Galvan ([id number])[facility] ()[address] [place] [address] CO2 [Moles/Vol] 23 mmol/L Low 24-31 [facility] Comment on above: Performed By: #### 2 4323-8 ####MELISA Galvan ([id number])[facility] ()[address] [place] [address] Creatinine [Mass/Vol] 0.60 mg/dL Normal 0.40-1.60 [facility] Comment on above: Performed By: #### 2 4323-8 ####MELISA Galvan ([id number])[facility] ()[address] [place] [address] GFR/1.73 sq M.predicted MDRD (S/P/Bld) [Vol rate/Area] mL/min/{1.73_m2} Normal >60 [facility] Comment on above: Result Comment: Calc ulations of estimated GFR are performed using the 2020 CKD-EPI Study Refit equation without the race variable for the IDMS-Traceable creatinine methods. https://jasn.asnjournals.org/content//ASN.46962324 88 Performed By: #### 2 4323-8 ####MELISA Gavlan ([id number])[facility] ()[address] [place] [address] Glucose [Mass/Vol] 136 mg/dL High 65-99 [facility] Comment on above: Performed By: #### 2 4323-8 ####MELISA Galvan ([id number])[facility] ()[address] [place] [address] Potassium [Moles/Vol] 3.9 mmol/L Normal 3.4-5.1 [facility] Comment on above: Performed By: #### 2 4323-8 ####MELISA Galvan ([id number])[facility] ()[address] [place] [address] Protein [Mass/Vol] 6.3 g/dL Normal 5.9-7.9 [facility] Comment on above: Performed By: #### 2 4323-8 ####MELISA Galvan ([id number])[facility] ()[address] [place] [address] Sodium [Moles/Vol] 137 mmol/L Normal 133-145 [facility] Comment on above: Performed By: #### 2 4323-8 ####MELISA Galvan ([id number])[facility] ()[address] [place] [address] Urea nitrogen [Mass/Vol] 14 mg/dL Normal 8-25 [facility] Comment on above: Performed By: #### 2 4323-8 ####MELISA Galvan ([id number])[facility] ()[address] [place] [address] Extra Urine [place] Tubeon 06-15 Extra Tube Hold for add-ons. [facility] Comment on above: Auto resulted. [facility] Glucose Test strip manual (B ld) [Mass/Vol]on 06-30-2023 Glucose [Mass/Vol] 117 mg/dL High 74 - 99 mg/dL [facility] Interpretation and review of laboratory results Abnormal [facility] Glucose [Mass/Vol] 117 mg/dL High 74-99 [facility] Comment on above: Performed By: #### 2 341-6 ####MELISA Galvan ([id number])[facility] ()[address] [place] [address] Glucose [Mass/Vol] 77 mg/dL 74 - 99 mg/dL [facility] Interpretation and review of laboratory results Normal [facility] Glucose [Mass/Vol] 77 mg/dL Normal 74-99 [facility] Comment on above: Performed By: #### 2 341-6 ####MELISA Galvan ([id number])[facility] ()[address] [place] [address] HCG ( test) IA.rapi d Ql (U)Ordered By: Agustin Cedillo on 06-30-2023 HCG ( test) Ql (U) Negative NEGATIVE [facility] Interpretation and review of laboratory results Normal [facility] HCG ( test) IA.rapi d Ql (U)on 06-30-2023 HCG ( test) Ql (U) Negative Normal NEGATIVE [facility] Comment on above: Performed By: #### 8 0384-1 ####MELISA Galvan ([id number])[facility] ()[address] [place] [address] Magnesiumon 06-30-2023 Magnesium [Mass/Vol] 1.90 mg/dL 1.60 - 3.10 mg/dL [facility] Magnesium [Mass/Vol] 1.90 mg/dL Normal 1.60-3.10 [facility] Comment on above: Performed By: #### 1 9123-9 ####MELISA Galvan ([id number])[facility] ()[address] [place] [address] No Panel Informationon 06-29 Interpretation and review of laboratory results Normal [facility] Phosphateon 06-30-2023 Phosphate [Mass/Vol] 4.4 mg/dL Normal 2.5-4.5 [facility] Comment on above: Performed By: #### 2 777-1 ####MELISA Galvan ([id number])[facility] ()[address] [place] [address] Phosphoruson 06-30-2023 Phosphate [Mass/Vol] 4.4 mg/dL 2.5 - 4.5 mg/dL [facility] Urinalysis complete W Reflex Culture panel (U)on 06-30-2023 Appearance (U) Clear Clear [facility] Bilirubin (U) [Mass/Vol] Negative NEGATIVE [facility] Color (U) Light-Yellow Light-Yellow, Yellow, Dark-Yellow [facility] Glucose Auto test strip (U) [Mass/Vol] Normal Normal mg/dL [facility] Interpretation and review of laboratory results Normal [facility] Ketones (U) [Mass/Vol] Negative NEGATIVE mg/dL [facility] Leukocyte esterase Auto test strip Ql (U) Negative NEGATIVE [facility] Nitrite Auto test strip Ql (U) Negative NEGATIVE [facility] pH (U) 6.0 [pH] 5.0, 5.5, 6.0, 6.5, 7.0, 7.5, 8.0 [facility] Protein (U) [Mass/Vol] Negative NEGATIVE, 10 (TRACE), 20 (TRACE) mg/dL [facility] RBC (U) [#/Vol] Negative NEGATIVE [facility] Specific gravity (U) [Rel density] 1.023 1.005 - 1.035 [facility] Urobilinogen (U) [Mass/Vol] Normal Normal mg/dL [facility] Appearance (U) Clear Normal Clear [facility] Comment on above: Performed By: #### 5 8077-9 ####MELISA Galvan ()[facility] ()[address] [place] [address] Bilirubin (U) [Mass/Vol] Negative Normal NEGATIVE [facility] Comment on above: Performed By: #### 5 8077-9 ####MELISA Galvan ()[facility] ()[address] [place] [address] Color (U) Light-Yellow Normal Light-Yellow, Yellow, Dark-Yellow [facility] Comment on above: Performed By: #### 5 8077-9 ####MELISA Galvan ()[facility] ()[address] [place] [address] Glucose Auto test strip (U) [Mass/Vol] Normal Normal Normal [facility] Comment on above: Performed By: #### 5 8077-9 ####MELISA Galvan ()[facility] ()[address] [place] [address] Ketones (U) [Mass/Vol] Negative Normal NEGATIVE [facility] Comment on above: Performed By: #### 5 8077-9 ####MELISA Galvan ()[facility] ()[address] [place] [address] Leukocyte esterase Auto test strip Ql (U) Negative Normal NEGATIVE [facility] Comment on above: Performed By: #### 5 8077-9 ####MELISA Galvan ()[facility] ()[address] [place] [address] Nitrite Auto test strip Ql (U) Negative Normal NEGATIVE [facility] Comment on above: Performed By: #### 5 8077-9 ####MELISA Galvan ()[facility] ()[address] [place] [address] pH (U) 6.0 [pH] Normal 5.0, 5.5, 6.0, 6.5, 7.0, 7.5, 8.0 [facility] Comment on above: Performed By: #### 5 8077-9 ####MELISA Galvan ([id number])[facility] ()[address] [place] [address] Protein (U) [Mass/Vol] Negative Normal NEGATIVE, 10 (TRACE), 20 (TRACE) [facility] Comment on above: Performed By: #### 5 8077-9 ####MELISA Galvan ([id number])[facility] ()[address] [place] [address] RBC (U) [#/Vol] Negative Normal NEGATIVE [facility] Comment on above: Performed By: #### 5 8077-9 ####MELISA Galvan ([id number])[facility] ()[address] [place] [address] Specific gravity (U) [Rel density] 1.023 Normal 1.005-1.035 [facility] Comment on above: Performed By: #### 5 8077-9 ####MELISA Galvan ([id number])[facility] ()[address] [place] [address] Urobilinogen (U) [Mass/Vol] Normal Normal Normal [facility] Comment on above: Performed By: #### 5 8077-9 ####MELISA Galvan ([id number])[facility] ()[address] [place] [address] VASC US MESENTERIC ARTERY DU PLEX COMPLETEon 06-30-2023 VASC US MESENTERIC ARTERY DUPLEX COMPLETE [facility] [address] [place] [address] Vascular Lab Report VASC US MESENTERIC ARTERY DUPLEX COMPLETE Patient Name: ABBEY FloresRenetta Oneil Physician: [id number] Sherry Magaña MD Study Date: 06/30/2023 Ordering Provider: [id number] JAMIL GAVIN MRN/PID: [id number] Fellow: Technologist: Leia Degroot RVT Date of /Age: 2 1990 / 33 years Technologist 2: Gender: F Admission Status: Inpatient Location Performed: [facility] 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 Report Amended Report Amended By: Brandy Magaña MD Date and Time: 06/30/2023 at 12:15:01 PM CONCLUSIONS: Mesenteric: Celiac artery demonstrates no evidence of hemodynamically significant stenosis, SMA demonstrates no evidence of hemodynamically significant stenosis and the KEELY appears widely patent. The patient was NPO for this study. There is turbulent flow noted throughout the celiac artery; Dr. Magaña is aware of this finding. Optimization of the celiac artery is sub optimal due to extensive bowel gas. Unable to visualize the splenic and hepatic arteries due to bowel gas. The celiac artery with maneuvers measures 96 cm/s. Additional Findings: Technically difficult exam due to bowel gas. Comparison: Compared with study from 01/14/2023, no significant change.Unable to rule out median arcuate ligament compression in the previous exam. Imaging & Doppler Findings: Aorta PSV 102 cm/s Celiac Origin PSV 92 cm/s Celiac Prox PSV 103 cm/s Celiac Mid PSV 154 cm/s Celiac Dist PSV 188 cm/s SMA Origin PSV 57 cm/s SMA Prox PSV 92 cm/s SMA Mid PSV 110 cm/s SMA Dist PSV 89 cm/s KEELY PSV 105 cm/s Brandy Magaña MD Brandy Magaña MD Electronically Amended 06/30/2023, 12:15 PM Final (Amended) Normal [facility] Vascular US mesenteric arter y duplex completeon 06-30-2023 Radiology Study observation (narrative) [facility] Work Phone: Basic metabolic 2000 panelon 06-29-2023 Anion gap [Moles/Vol] 12 mmol/L NINF - 19 mmol/L [facility] Calcium [Mass/Vol] 8.6 mg/dL 8.5 - 10.4 mg/dL [facility] Chloride [Moles/Vol] 105 mmol/L 97 - 107 mmol/L [facility] CO2 [Moles/Vol] 21 mmol/L Low 24 - 31 mmol/L [facility] Creatinine [Mass/Vol] 0.60 mg/dL 0.40 - 1.60 mg/dL [facility] eGFR - PINF [facility] Comment on above: Calculations of jessica mated GFR are performed using the 2020 CKD-EPI Study Refit equation without the race variable for the IDMS-Traceable creatinine methods. https://jasn.asnjournals.org/content/early//ASN.15942088 88 Glucose [Mass/Vol] 106 mg/dL High 65 - 99 mg/dL [facility] Interpretation and review of laboratory results Abnormal [facility] Potassium [Moles/Vol] 3.9 mmol/L 3.4 - 5.1 mmol/L [facility] Sodium [Moles/Vol] 138 mmol/L 133 - 145 mmol/L [facility] Urea nitrogen [Mass/Vol] 16 mg/dL 8 - 25 mg/dL [facility] Anion gap [Moles/Vol] 12 mmol/L Normal <=19 [facility] Comment on above: Performed By: #### V ERAB #### MELISA Galvan ([id number]) [facility] ([facility]) [id number] [place] [address] [place] Calcium [Mass/Vol] 8.6 mg/dL Normal 8.5-10.4 [facility] Comment on above: Performed By: #### V ERAB #### MELISA Galvan ([id number]) [facility] ([facility]) [address] [place] [address] [place] Chloride [Moles/Vol] 105 mmol/L Normal 97-107 [facility] Comment on above: Performed By: #### V ERAB #### MELISA Galvan ([id number]) [facility] ([facility]) [address] [place] [address] [place] CO2 [Moles/Vol] 21 mmol/L Low 24-31 [facility] Comment on above: Performed By: #### V ERAB #### MELISA Galvan ([id number]) [facility] ([facility]) [address] [place] [address] [place] Creatinine [Mass/Vol] 0.60 mg/dL Normal 0.40-1.60 [facility] Comment on above: Performed By: #### V ERAB #### MELISA Galvan ([id number]) [facility] ([facility]) [address] [place] [address] [place] GFR/1.73 sq M.predicted MDRD (S/P/Bld) [Vol rate/Area] mL/min/{1.73_m2} Normal >60 [facility] Comment on above: Result Comment: Calc ulations of estimated GFR are performed using the 2020 CKD-EPI Study Refit equation without the race variable for the IDMS-Traceable creatinine methods. https://jasn.asnjournals.org/content/early/ASN.04497477 88 Performed By: #### V ERAB #### MELISA Galvan ([id number]) [facility] ([facility]) [address] [place] [address] [place] Glucose [Mass/Vol] 106 mg/dL High 65-99 [facility] Comment on above: Performed By: #### V ERAB #### MELISA Galvan ([id number]) [facility] ([facility]) [address] [place] [address] [place] Potassium [Moles/Vol] 3.9 mmol/L Normal 3.4-5.1 [facility] Comment on above: Performed By: #### V ERAB #### MELISA Galvan ([id number]) [facility] ([facility]) [address] [place] [address] [place] Sodium [Moles/Vol] 138 mmol/L Normal 133-145 [facility] Comment on above: Performed By: #### V ERAB #### MELISA POOLESarwat Galvan ([id number]) [facility] ([facility]) [address] [place] [id number] [place] Urea nitrogen [Mass/Vol] 16 mg/dL Normal 8-25 [facility] Comment on above: Performed By: #### V ERAB #### MELISA MC Mandy ([id number]) [facility] ([facility]) [address] [place] [id number] [place] CBC W Auto Differential pane l (Bld)on 06-29-2023 Basophils (Bld) [#/Vol] 0.03 10*3/uL [facility] Basophils/100 WBC (Bld) 0.6 % 0.0 - 2.0 % [facility] Eosinophils (Bld) [#/Vol] 0.01 10*3/uL [facility] Eosinophils/100 WBC (Bld) 0.2 % 0.0 - 6.0 % [facility] Erythrocyte distribution width (RBC) [Ratio] 13.8 % 11.5 - 14.5 % [facility] Hematocrit (Bld) [Volume fraction] 32.2 % Low 36.0 - 46.0 % [facility] Hemoglobin (Bld) [Mass/Vol] 10.3 g/dL Low 12.0 - 16.0 g/dL [facility] Immature granulocytes (Bld) [#/Vol] 0.01 10*3/uL [facility] Immature granulocytes/100 WBC (Bld) 0.2 % 0.0 - 0.9 % [facility] Comment on above: Immature Granulocyte Count (IG) includes promyelocytes, myelocytes and metamyelocytes but does not include bands. Percent differential counts (%) should be interpreted in the context of the absolute cell counts (cells/UL). Interpretation and review of laboratory results Abnormal [facility] Lymphocytes (Bld) [#/Vol] 1.15 10*3/uL Low [facility] Lymphocytes/100 WBC (Bld) 23.1 % 13.0 - 44.0 % [facility] MCH (RBC) [Entitic mass] 31.2 pg 26.0 - 34.0 pg [facility] MCHC (RBC) [Mass/Vol] 32.0 g/dL 32.0 - 36.0 g/dL [facility] MCV (RBC) [Entitic vol] 98 fL 80 - 100 fL [facility] Monocytes (Bld) [#/Vol] 0.20 10*3/uL [facility] Monocytes/100 WBC (Bld) 4.0 % 2.0 - 10.0 % [facility] Neutrophils (Bld) [#/Vol] 3.57 10*3/uL [facility] Comment on above: Percent differential counts (%) should be interpreted in the context of the absolute cell counts (cells/uL). Neutrophils/100 WBC (Bld) 71.9 % 40.0 - 80.0 % [facility] Nucleated RBC/100 WBC (Bld) [Ratio] 0.0 % [facility] Platelets (Bld) [#/Vol] 231 10*3/uL [facility] RBC (Bld) [#/Vol] 3.30 10*6/uL Low [facility] WBC (Bld) [#/Vol] 5.0 10*3/uL [facility] Basophils (Bld) [#/Vol] 0.03 x10*3/uL Normal 0.00-0.10 [facility] Comment on above: Performed By: #### V ERAB #### MELISA Galvan ([id number]) [facility] ([facility]) [address] [place] [address] [place] Basophils/100 WBC (Bld) 0.6 % Normal 0.0-2.0 [facility] Comment on above: Performed By: #### V ERAB #### MELISA Galvan ([id number]) [facility] ([facility]) [address] [place] [address] [place] Eosinophils (Bld) [#/Vol] 0.01 x10*3/uL Normal 0.00-0.70 [facility] Comment on above: Performed By: #### V ERAB #### MELISA Galvan ([id number]) [facility] ([facility]) [address] [place] [address] [place] Eosinophils/100 WBC (Bld) 0.2 % Normal 0.0-6.0 [facility] Comment on above: Performed By: #### V ERAB #### MELISA Galvan ([id number]) [facility] ([facility]) [address] [place] [address] [place] Erythrocyte distribution width (RBC) [Ratio] 13.8 % Normal 11.5-14.5 [facility] Comment on above: Performed By: #### V ERAB #### MELISA Galvan ([id number]) [facility] ([facility]) [address] [place] [address] [place] Hematocrit (Bld) [Volume fraction] 32.2 % Low 36.0-46.0 [facility] Comment on above: Performed By: #### V ERAB #### MELISA Galvan ([id number]) [facility] ([facility]) [address] [place] [address] [place] Hemoglobin (Bld) [Mass/Vol] 10.3 g/dL Low 12.0-16.0 [facility] Comment on above: Performed By: #### V ERAB #### MELISA Galvan ([id number]) [facility] ([facility]) [address] [place] [address] [place] Immature granulocytes (Bld) [#/Vol] 0.01 x10*3/uL Normal 0.00-0.70 [facility] Comment on above: Performed By: #### V ERAB #### MELISA Galvan ([id number]) [facility] ([facility]) [address] [place] [address] [place] Immature granulocytes/100 WBC (Bld) 0.2 % Normal 0.0-0.9 [facility] Comment on above: Result Comment: Janny ture Granulocyte Count (IG) includes promyelocytes, myelocytes and metamyelocytes but does not include bands. Percent differential counts (%) should be interpreted in the context of the absolute cell counts (cells/UL). Performed By: #### V ERAB #### MELISA Galvan ([id number]) [facility] ([facility]) [address] [place] [address] [place] Lymphocytes (Bld) [#/Vol] 1.15 x10*3/uL Low 1.20-4.80 [facility] Comment on above: Performed By: #### V ERAB #### MELISA Galvan ([id number]) [facility] ([facility]) [address] [place] [address] US Lymphocytes/100 WBC (Bld) 23.1 % Normal 13.0-44.0 [facility] Comment on above: Performed By: #### V ERAB #### MELISA Galvan ([id number]) [facility] ([facility]) [address] [place] [address] US MCH (RBC) [Entitic mass] 31.2 pg Normal 26.0-34.0 [facility] Comment on above: Performed By: #### V ERAB #### MELISA Galvan ([id number]) [facility] ([facility]) [address] [place] [address] US MCHC (RBC) [Mass/Vol] 32.0 g/dL Normal 32.0-36.0 [facility] Comment on above: Performed By: #### V ERAB #### MELISA Galvan ([id number]) [facility] ([facility]) [address] [place] [address] US MCV (RBC) [Entitic vol] 98 fL Normal 80-100 [facility] Comment on above: Performed By: #### V ERAB #### MELISA Galvan ([id number]) [facility] ([facility]) [address] [place] [address] [place] Monocytes (Bld) [#/Vol] 0.20 x10*3/uL Normal 0.10-1.00 [facility] Comment on above: Performed By: #### V ERAB #### MELISA Galvan ([id number]) [facility] ([facility]) [address] [place] [address] US Monocytes/100 WBC (Bld) 4.0 % Normal 2.0-10.0 [facility] Comment on above: Performed By: #### V ERAB #### MELISA Galvan ([id number]) [facility] ([facility]) [address] [place] [address] US Neutrophils (Bld) [#/Vol] 3.57 x10*3/uL Normal 1.20-7.70 [facility] Comment on above: Result Comment: Perc ent differential counts (%) should be interpreted in the context of the absolute cell counts (cells/uL). Performed By: #### V ERAB #### MELISA Galvan ([id number]) [facility] ([facility]) [address] [place] [address] US Neutrophils/100 WBC (Bld) 71.9 % Normal 40.0-80.0 [facility] Comment on above: Performed By: #### V ERAB #### MELISA Galvan ([id number]) [facility] ([facility]) [address] [place] [address] US Nucleated RBC/100 WBC (Bld) [Ratio] 0.0 /100 WBCs Normal 0.0-0.0 [facility] Comment on above: Performed By: #### V ERAB #### MELISA Galvan ([id number]) [facility] ([facility]) [address] [place] [address] [place] Platelets (Bld) [#/Vol] 231 x10*3/uL Normal 150-450 [facility] Comment on above: Performed By: #### V ERAB #### MELISA Galvan ([id number]) [facility] ([facility]) [address] [place] [address] US RBC (Bld) [#/Vol] 3.30 x10*6/uL Low 4.00-5.20 [facility] Comment on above: Performed By: #### V ERAB #### MELISA Galvan ([id number]) [facility] ([employer]) [address] [place] [address] US WBC (Bld) [#/Vol] 5.0 x10*3/uL Normal 4.4-11.3 [facility] Comment on above: Performed By: #### Beth ERAB #### MELISA Galvan ([id number]) [facility] ([facility]) [id number] [place] [address] [place] CBC panel Auto (Bld)on 06-28 Erythrocyte distribution width (RBC) [Ratio] 13.7 % 11.5 - 14.5 % [facility] Hematocrit (Bld) [Volume fraction] 32.7 % Low 36.0 - 46.0 % [facility] Hemoglobin (Bld) [Mass/Vol] 11.0 g/dL Low 12.0 - 16.0 g/dL [facility] Interpretation and review of laboratory results Abnormal [facility] MCH (RBC) [Entitic mass] 30.7 pg 26.0 - 34.0 pg [facility] MCHC (RBC) [Mass/Vol] 33.6 g/dL 32.0 - 36.0 g/dL [facility] MCV (RBC) [Entitic vol] 91 fL 80 - 100 fL [facility] Nucleated RBC/100 WBC (Bld) [Ratio] 0.0 % [facility] Platelets (Bld) [#/Vol] 246 10*3/uL [facility] RBC (Bld) [#/Vol] 3.58 10*6/uL Low [facility] WBC (Bld) [#/Vol] 5.2 10*3/uL [facility] Erythrocyte distribution width (RBC) [Ratio] 13.7 % Normal 11.5-14.5 [facility] Comment on above: Performed By: #### V ERAB #### MELISA Galvan ([id number]) [facility] ([facility]) [address] [place] [address] [place] Hematocrit (Bld) [Volume fraction] 32.7 % Low 36.0-46.0 [facility] Comment on above: Performed By: #### V ERAB #### MELISA Galvan ([id number]) [facility] ([facility]) [address] [place] [address] US Hemoglobin (Bld) [Mass/Vol] 11.0 g/dL Low 12.0-16.0 [facility] Comment on above: Performed By: #### V ERAB #### MELISA Galvan ([id number]) [facility] ([facility]) [address] [place] [address] US MCH (RBC) [Entitic mass] 30.7 pg Normal 26.0-34.0 [facility] Comment on above: Performed By: #### V ERAB #### MELISA Galvan () [facility] ([facility]) [address] [place] [address] US MCHC (RBC) [Mass/Vol] 33.6 g/dL Normal 32.0-36.0 [facility] Comment on above: Performed By: #### V ERAB #### MELISA Galvan () [facility] ([facility]) [address] [place] [address] US MCV (RBC) [Entitic vol] 91 fL Normal 80-100 [facility] Comment on above: Performed By: #### Beth ERAB #### MELISA Galvan () [facility] ([facility]) [address] [place] [address] US Nucleated RBC/100 WBC (Bld) [Ratio] 0.0 /100 WBCs Normal 0.0-0.0 [facility] Comment on above: Performed By: #### V ERAB #### MELISA Galvan () [facility] ([facility]) [address] [place] [address] US Platelets (Bld) [#/Vol] 246 x10*3/uL Normal 150-450 [facility] Comment on above: Performed By: #### V ERAB #### MELISA Galvan () [facility] ([facility]) [address] [place] [address] US RBC (Bld) [#/Vol] 3.58 x10*6/uL Low 4.00-5.20 [facility] Comment on above: Performed By: #### V ERAB #### MELISA Galvan ([id number]) [facility] ([facility]) [address] [place] [address] US WBC (Bld) [#/Vol] 5.2 x10*3/uL Normal 4.4-11.3 [facility] Comment on above: Performed By: #### V ERAB #### MELISA Galvan ([id number]) [facility] ([facility]) [address] [place] [address] ABDOMEN PELVIS WO IV CONT [facility] 06-29-2023 CT ABDOMEN PELVIS WO IV CONTRAST Interpreted By: Fly West, STUDY: CT ABDOMEN PELVIS WO IV CONTRAST; 06/29/2023 11:09 pm INDICATION: Signs/Symptoms:Abdo kerry pain. COMPARISON: 03/16/2023 ACCESSION NUMBER(S): [id number] ORDERING CLINICIAN: DAVID VALADEZ TECHNIQUE: Axial CT images of the abdomen and pelvis with coronal and sagittal reconstructed images obtained without intravenous contrast.. FINDINGS: LOWER CHEST: Mild subsegmental atelectasis. LIVER: Numerous scattered hypodense foci, likely reflecting cysts, though incompletely characterized. BILE DUCTS: Normal caliber. GALLBLADDER: Cholecystectomy. PANCREAS: Within normal limits. SPLEEN: Within normal limits. ADRENALS: Within normal limits. KIDNEYS, URETERS, and BLADDER: No hydronephrosis or renal calculi. Ureters are non-dilated. Urinary bladder is decompressed, limiting evaluation. Long catheter in place. REPRODUCTIVE: Status post hysterectomy. No adnexal mass. VESSELS: The aorta and IVC appear normal. RETROPERITONEUM and LYMPH NODES: No lymphadenopathy. Surgical clip near the median arcuate ligament. 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 There is a jejunostomy tube in place. Small bowel is non-dilated. The appendix is not definitely visualized. There is however no pericecal stranding or fluid. Large bowel is normal. PERITONEUM: No ascites or free air, no fluid collection. BODY WALL: Midline abdominal wall scarring. MUSCULOSKELETAL: No acute osseous abnormality or suspicious osseous lesions. There is mild multilevel spinal degenerative change. IMPRESSION: 1. No acute abdominal or pelvic process. 2. Numerous hepatic hypodense lesions, incompletely characterize, though likely reflecting cysts. Appearance is similar to 03/16/2023. 3. Postsurgical changes as above. Signed by: Fly West 06/29/2023 11:53 PM Dictation workstation: [id number] [facility] CT Abdomen WO contraston 1. No acute abdominal or pelvic process. 2. Numerous hepatic hypodense lesions, incompletely characterize, though likely reflecting cysts. Appearance is similar to 03/16/2023. 3. Postsurgical changes as above. Signed by: Fly West 06/29/2023 11:53 PM Dictation workstation: [id number] MMODAL Interpreted By: Fly West, STUDY: CT ABDOMEN PELVIS WO IV CONTRAST; 06/29/2023 11:09 pm INDICATION: Signs/Symptoms:Abdo kerry pain. COMPARISON: 03/16/2023 ACCESSION NUMBER(S): [id number] ORDERING CLINICIAN: DAVID VALADEZ TECHNIQUE: Axial CT images of the abdomen and pelvis with coronal and sagittal reconstructed images obtained without intravenous contrast.. FINDINGS: LOWER CHEST: Mild subsegmental atelectasis. LIVER: Numerous scattered hypodense foci, likely reflecting cysts, though incompletely characterized. BILE DUCTS: Normal caliber. GALLBLADDER: Cholecystectomy. PANCREAS: Within normal limits. SPLEEN: Within normal limits. ADRENALS: Within normal limits. KIDNEYS, URETERS, and BLADDER: No hydronephrosis or renal calculi. Ureters are non-dilated. Urinary bladder is decompressed, limiting evaluation. Long catheter in place. REPRODUCTIVE: Status post hysterectomy. No adnexal mass. VESSELS: The aorta and IVC appear normal. RETROPERITONEUM and LYMPH NODES: No lymphadenopathy. Surgical clip near the median arcuate ligament. 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 There is a jejunostomy tube in place. Small bowel is non-dilated. The appendix is not definitely visualized. There is however no pericecal stranding or fluid. Large bowel is normal. PERITONEUM: No ascites or free air, no fluid collection. BODY WALL: Midline abdominal wall scarring. MUSCULOSKELETAL: No acute osseous abnormality or suspicious osseous lesions. There is mild multilevel spinal degenerative change. [facility] MMODAL Fly West, DO - 06/29/2023 Interpreted By: Fly West, STUDY: CT ABDOMEN PELVIS WO IV CONTRAST; 06/29/2023 11:09 pm INDICATION: Signs/Symptoms:Abdo kerry pain. COMPARISON: 03/16/2023 ACCESSION NUMBER(S): [id number] ORDERING CLINICIAN: DAVID VALADEZ TECHNIQUE: Axial CT images of the abdomen and pelvis with coronal and sagittal reconstructed images obtained without intravenous contrast.. FINDINGS: LOWER CHEST: Mild subsegmental atelectasis. LIVER: Numerous scattered hypodense foci, likely reflecting cysts, though incompletely characterized. BILE DUCTS: Normal caliber. GALLBLADDER: Cholecystectomy. PANCREAS: Within normal limits. SPLEEN: Within normal limits. ADRENALS: Within normal limits. KIDNEYS, URETERS, and BLADDER: No hydronephrosis or renal calculi. Ureters are non-dilated. Urinary bladder is decompressed, limiting evaluation. Long catheter in place. REPRODUCTIVE: Status post hysterectomy. No adnexal mass. VESSELS: The aorta and IVC appear normal. RETROPERITONEUM and LYMPH NODES: No lymphadenopathy. Surgical clip near the median arcuate ligament. 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 There is a jejunostomy tube in place. Small bowel is non-dilated. The appendix is not definitely visualized. There is however no pericecal stranding or fluid. Large bowel is normal. PERITONEUM: No ascites or free air, no fluid collection. BODY WALL: Midline abdominal wall scarring. MUSCULOSKELETAL: No acute osseous abnormality or suspicious osseous lesions. There is mild multilevel spinal degenerative change. IMPRESSION: 1. No acute abdominal or pelvic process. 2. Numerous hepatic hypodense lesions, incompletely characterize, though likely reflecting cysts. Appearance is similar to 03/16/2023. 3. Postsurgical changes as above. Signed by: Fly West 06/29/2023 11:53 PM Dictation workstation: [id number] [facility] Work Phone: Radiology Study observation (narrative) [facility] Work Phone: CT Abdomen WO contrastOrdere d By: Fly West on 06-29-2023 [facility] Work Phone: Comprehensive metabolic 2000 panelon 06-29-2023 Albumin [Mass/Vol] 3.8 g/dL Normal 3.5-5.0 [facility] Comment on above: Performed By: #### V ERAB #### MELISA Galvan () [facility] ([facility]) [address] [place] [address] US ALP (Bld) [Catalytic activity/Vol] 51 U/L Normal 35-125 [facility] Comment on above: Performed By: #### V ERAB #### MELISA Galvan () [facility] ([facility]) [address] [place] [address] US ALT [Catalytic activity/Vol] 35 U/L Normal 5-40 [facility] Comment on above: Performed By: #### V ERAB #### MELISA Galvan () [facility] ([facility]) [address] [place] [address] US Anion gap [Moles/Vol] 13 mmol/L Normal <=19 [facility] Comment on above: Performed By: #### V ERAB #### MELISA Galvan () [facility] ([facility]) [address] [place] [address] US AST [Catalytic activity/Vol] 52 U/L High 5-40 [facility] Comment on above: Performed By: #### V ERAB #### MELISA Galvan () [facility] ([facility]) [address] [place] [address] US Bilirubin [Mass/Vol] mg/dL Normal 0.1-1.2 [facility] Comment on above: Performed By: #### V ERAB #### MELISA Galvan () [facility] ([facility]) [address] [place] [address] US Calcium [Mass/Vol] 9.1 mg/dL Normal 8.5-10.4 [facility] Comment on above: Performed By: #### V ERAB #### MELISA Galvan () [facility] ([facility]) [address] [place] [address] US Chloride [Moles/Vol] 90 mmol/L Low 97-107 [facility] Comment on above: Performed By: #### V ERAB #### MELISA Galvan ([id number]) [facility] ([facility]) [address] [place] [address] US CO2 [Moles/Vol] 19 mmol/L Low 24-31 [facility] Comment on above: Performed By: #### V ERAB #### MELISA Galvan ([id number]) [facility] ([facility]) [address] [place] [address] US Creatinine [Mass/Vol] 0.70 mg/dL Normal 0.40-1.60 [facility] Comment on above: Performed By: #### V ERAB #### MELISA Galvan ([id number]) [facility] ([facility]) [address] [place] [address] US GFR/1.73 sq M.predicted MDRD (S/P/Bld) [Vol rate/Area] mL/min/{1.73_m2} Normal >60 [facility] Comment on above: Result Comment: Calc ulations of estimated GFR are performed using the 2020 CKD-EPI Study Refit equation without the race variable for the IDMS-Traceable creatinine methods. https://jasn.asnjournals.org/content/early/ASN.07839478 88 Performed By: #### V ERAB #### MELISA Galvan ([id number]) [facility] ([facility]) [address] [place] [address] US Glucose [Mass/Vol] 920 mg/dL Critically high 65-99 U [facility] Comment on above: Result Comment: Resu lt rechecked Possible IV contamination. Results do not correlate with previous and post results. Patient was redraw . Performed By: #### V ERAB #### MELISA Galvan ([id number]) [facility] ([facility]) [address] [place] [address] US Potassium [Moles/Vol] 6.8 mmol/L Critically high 3.4-5.1 [facility] Comment on above: Result Comment: Resu lt rechecked Possible IV contamination. Results do not correlate with previus and post results. Patient was redrawn. Performed By: #### V ERAB #### MELISA Galvan ([id number]) [facility] ([facility]) [address] [place] [address] US Protein [Mass/Vol] 6.3 g/dL Normal 5.9-7.9 [facility] Comment on above: Performed By: #### V ERAB #### MELISA Galvan ([id number]) [facility] ([facility]) [address] [place] [address] US Sodium [Moles/Vol] 122 mmol/L Low 133-145 [facility] Comment on above: Result Comment: Resu lt rechecked Performed By: #### V ERAB #### MELISA Galvan ([id number]) [facility] ([facility]) [address] [place] [address] [place] Urea nitrogen [Mass/Vol] 15 mg/dL Normal 8-25 [facility] Comment on above: Performed By: #### V ERAB #### MELISA Galvan ([id number]) [facility] ([facility]) [address] [place] [address] [place] Glucose Test strip manual (B ld) [Mass/Vol]on 06-29-2023 Glucose [Mass/Vol] 117 mg/dL High 74 - 99 mg/dL [facility] Interpretation and review of laboratory results Abnormal [facility] Glucose [Mass/Vol] 117 mg/dL High 74-99 [facility] Comment on above: Performed By: #### V ERAB #### MELISA Galvan ([id number]) [facility] ([facility]) [address] [place] [address] [place] [facility] 2023 Home Health Records [id number] 8#1.00TIFF Normal [facility] Auth for Release of Medical Recordson 06-23-2023 Auth for Release of Medical Records [id number] B#1.00TIFF Normal [facility] ED Note-Physicianon 06-23-19 ED Note-Physician [id number] D5#1.00TIFF Normal [facility] ED Note-Physicianon 06-22-19 24 ED Note-Physician [id number] 906#1.00TIFF Normal [facility] ED Note-Physician [id number] 15#1.00TIFF Normal [facility] Lab Reportson 06-22-2023 Lab Reports [id number] 447#1.00TIFF [facility] Provider Letteron 06-22-2023 Provider Letter [facility] RAD - CT Reporton 06-22-2023 RAD - CT Report [id number] 594#1.00TIFF [facility] Home Health Recordson 2023 Home Health Records [id number] 00#1.00TIFF [facility] ALLIED HEALTHon 06-18-2023 ALLIED HEALTH Normal [facility] CBC W Auto Differential pane l (Bld)on 06-18-2023 Basophils (Bld) [#/Vol] 0.04 10*3/uL Normal <0.11 [facility] Comment on above: Order Comment: Speci men Type: BLOOD SPECIMENOrdering Facility: [facility] Address: [address] [place] [address] Performed By: #### 5 7021-8 ####[facility] LABORATORYCLIA [id number] [place] [address] [place] Basophils/100 WBC (Bld) 0.8 % Normal [facility] Comment on above: Order Comment: Speci men Type: BLOOD SPECIMENOrdering Facility: [facility] Address: [address] [place], [place] [address] Performed By: #### 5 7021-8 ####[facility] LABORATORYCLIA [id number] [place] [address] [place] Differential cell count method Nom (Bld) Auto Normal [facility] Comment on above: Order Comment: Speci men Type: BLOOD SPECIMENOrdering Facility: [facility] Address: [address] [place] [address] Performed By: #### 5 7021-8 ####[facility] LABORATORYCLIA [id number] [place] [address] [place] Eosinophils (Bld) [#/Vol] 0.13 10*3/uL Normal <0.46 [facility] Comment on above: Order Comment: Speci men Type: BLOOD SPECIMENOrdering Facility: [facility] Address: [address] [place] [address] Performed By: #### 5 7021-8 ####[facility]ORATORYCLIA [id number] [place] [address] [place] Eosinophils/100 WBC (Bld) 2.8 % Normal [facility] Comment on above: Order Comment: Speci men Type: BLOOD SPECIMENOrdering Facility: [facility] Address: [address] [place] [address] Performed By: #### 5 7021-8 ####[facility] LABORATORYCLIA [id number] [address] [place] Erythrocyte distribution width (RBC) [Ratio] 13.3 % Normal 11.5-15.0 [facility] Comment on above: Order Comment: Speci men Type: BLOOD SPECIMENOrdering Facility: [facility] Address: [address] [place] [address] Performed By: #### 5 7021-8 ####[facility] LABORATORYCLIA [id number] [address] [place] Hematocrit (Bld) [Volume fraction] 34.6 % Low 36.0-46.0 [facility] Comment on above: Order Comment: Speci men Type: BLOOD SPECIMENOrdering Facility: [facility] Address: [address] [place] [address] Performed By: #### 5 7021-8 ####[facility] LABORATORYCLIA [id number] [place] [id number] [place] Hemoglobin (Bld) [Mass/Vol] 12.0 g/dL Normal 11.5-15.5 [facility] Comment on above: Order Comment: Speci men Type: BLOOD SPECIMENOrdering Facility: [facility] Address: [address] [place] [address] Performed By: #### 5 7021-8 ####[facility] LABORATORYCLIA [id number] [place] [address] [place] Immature granulocytes (Bld) [#/Vol] 10*3/uL Normal <0.10 [facility] Comment on above: Order Comment: Speci men Type: BLOOD SPECIMENOrdering Facility: [facility] Address: [address] [place] [address] Performed By: #### 5 7021-8 ####[facility] LABORATORYCLIA [id number] [place] [address] [place] Immature granulocytes/100 WBC (Bld) 0.2 % Normal [facility] Comment on above: Order Comment: Speci men Type: BLOOD SPECIMENOrdering Facility: [facility] Address: [address] [place] [address] Performed By: #### 5 7021-8 ####[facility] LABORATORYCLIA [id number] [place] [address] [place] Lymphocytes (Bld) [#/Vol] 1.90 10*3/uL Normal 1.00-4.00 [facility] Comment on above: Order Comment: Speci men Type: BLOOD SPECIMENOrdering Facility: [facility] Address: [address] [place] [address] Performed By: #### 5 7021-8 ####[facility] LABORATORYCLIA [id number] [place] [address] [place] Lymphocytes/100 WBC (Bld) 40.3 % Normal [facility] Comment on above: Order Comment: Speci men Type: BLOOD SPECIMENOrdering Facility: [facility] Address: [address] [place] [address] Performed By: #### 5 7021-8 ####[facility] LABORATORYCLIA [id number] [address] [place] [address] MCH (RBC) [Entitic mass] 30.9 pg Normal 26.0-34.0 [facility] Comment on above: Order Comment: Speci men Type: BLOOD SPECIMENOrdering Facility: [facility] Address: [address] [place] [address] Performed By: #### 5 7021-8 ####[facility] LABORATORYCLIA [id number] [address] MCHC (RBC) [Mass/Vol] 34.7 g/dL Normal 30.5-36.0 [facility] Comment on above: Order Comment: Speci men Type: BLOOD SPECIMENOrdering Facility: [facility] Address: [address] [place] [address] Performed By: #### 5 7021-8 ####[facility] LABORATORYCLIA [id number] [address] [place] MCV (RBC) [Entitic vol] 89.2 fL Normal 80.0-100.0 [facility] Comment on above: Order Comment: Speci men Type: BLOOD SPECIMENOrdering Facility: [facility] Address: [address] [place] [address] Performed By: #### 5 7021-8 ####[facility] LABORATORYCLIA [id number] [address] Monocytes (Bld) [#/Vol] 0.24 10*3/uL Normal <0.87 [facility] Comment on above: Order Comment: Speci men Type: BLOOD SPECIMENOrdering Facility: [facility] Address: [address] [place] [address] Performed By: #### 5 7021-8 ####[facility] LABORATORYCLIA [id number] [address] Monocytes/100 WBC (Bld) 5.1 % Normal [facility] Comment on above: Order Comment: Speci men Type: BLOOD SPECIMENOrdering Facility: [facility] Address: [address] [place] [address] Performed By: #### 5 7021-8 ####[facility] LABORATORYCLIA [id number] [place] [id number] [place] Neutrophils (Bld) [#/Vol] 2.39 10*3/uL Normal 1.45-7.50 [facility] Comment on above: Order Comment: Speci men Type: BLOOD SPECIMENOrdering Facility: [facility] Address: [address] [place] [address] Performed By: #### 5 7021-8 ####[facility] LABORATORYCLIA [id number] [place] [address] [place] Neutrophils/100 WBC (Bld) 50.8 % Normal [facility] Comment on above: Order Comment: Speci men Type: BLOOD SPECIMENOrdering Facility: [facility] Address: [address] [place] [address] Performed By: #### 5 7021-8 ####[facility] LABORATORYCLIA [id number] [place] [id number] [place] Nucleated RBC (Bld) [#/Vol] 10*3/uL Normal <0.01 [facility] Comment on above: Order Comment: Speci men Type: BLOOD SPECIMENOrdering Facility: [facility] Address: [address] [place] [address] Performed By: #### 5 7021-8 ####[facility] LABORATORYCLIA [id number] [place] [address] [place] Nucleated RBC/100 WBC (Bld) [Ratio] 0.0 /100 WBC Normal [facility] Comment on above: Order Comment: Speci men Type: BLOOD SPECIMENOrdering Facility: [facility] Address: [address] [place] [address] Performed By: #### 5 7021-8 ####[facility] LABORATORYCLIA [id number] [place] [id number] [place] Platelet mean volume (Bld) [Entitic vol] 11.4 fL Normal 9.0-12.7 [facility] Comment on above: Order Comment: Speci men Type: BLOOD SPECIMENOrdering Facility: [facility] Address: [address] [place] [address] Performed By: #### 5 7021-8 ####[facility] LABORATORYCLIA [id number] [place] [address] [place] Platelets (Bld) [#/Vol] 233 10*3/uL Normal 150-400 [facility] Comment on above: Order Comment: Speci men Type: BLOOD SPECIMENOrdering Facility: [facility] Address: [address] [place] [address] Performed By: #### 5 7021-8 ####[facility] LABORATORYCLIA [id number] [place] [address] [place] RBC (Bld) [#/Vol] 3.88 10*6/uL Low 3.90-5.20 [facility] Comment on above: Order Comment: Speci men Type: BLOOD SPECIMENOrdering Facility: [facility] Address: [address] [place] [address] Performed By: #### 5 7021-8 ####[facility] LABORATORYCLIA [id number] [place] [address] [place] WBC (Bld) [#/Vol] 4.71 10*3/uL Normal 3.70-11.00 [facility] Comment on above: Order Comment: Speci men Type: BLOOD SPECIMENOrdering Facility: [facility] Address: [address] [place] [address] Performed By: #### 5 7021-8 ####[facility] LABORATORYCLIA [id number] [place] [address] [place] CNOVon 06-18-2023 CNOV Normal [facility] CONSULTon 06-18-2023 CONSULT Normal [facility] CT ABD/PEL W IVCONon 024 CT ABD/PEL W IVCON Normal [facility] Comprehensive metabolic 2000 panelon 06-18-2023 Albumin [Mass/Vol] 4.5 g/dL Normal 3.9-4.9 [facility] Comment on above: Order Comment: Speci men Type: BLOOD SPECIMENOrdering Facility: [facility] Address: [address] [place] [address] Performed By: #### 1 9123-9, 3040-3, 07591-0 ####[facility] LABORATORYCLIA [id number] [place] [address] [place] ALP [Catalytic activity/Vol] 58 U/L Normal 34-123 [facility] Comment on above: Order Comment: Speci men Type: BLOOD SPECIMENOrdering Facility: [facility] Address: [address] [place] [address] Performed By: #### 1 9123-9, 3040-3, 42653-6 ####[facility] LABORATORYCLIA [id number] [place] [address] [place] ALT [Catalytic activity/Vol] 13 U/L Normal 7-38 [facility] Comment on above: Order Comment: Speci men Type: BLOOD SPECIMENOrdering Facility: [facility] Address: [address] [facility] [place] [address] Performed By: #### 1 9123-9, 0-3, 20137-2 ####[facility] LABORATORYCLIA [id number] [place] [address] [place] Anion gap [Moles/Vol] 13 mmol/L Normal 9-18 [facility] Comment on above: Order Comment: Speci men Type: BLOOD SPECIMENOrdering Facility: [facility] Address: [address] [place] [address] Performed By: #### 1 9123-9, 3040-3, 79943-6 ####[facility] LABORATORYCLIA [id number] [place] [address] [place] AST [Catalytic activity/Vol] 31 U/L Normal 13-35 [facility] Comment on above: Order Comment: Speci men Type: BLOOD SPECIMENOrdering Facility: [facility] Address: [address] [place] [address] Performed By: #### 1 9123-9, 3040-3, ####[facility] LABORATORYCLIA [id number] [place] [address] [place] Bilirubin [Mass/Vol] 0.4 mg/dL Normal 0.2-1.3 [facility] Comment on above: Order Comment: Speci men Type: BLOOD SPECIMENOrdering Facility: [facility] Address: [address] [place] [address] Performed By: #### 1 9123-9, 3039-3, ####[facility] LABORATORYCLIA [id number] [place] [address] [place] Calcium [Mass/Vol] 9.0 mg/dL Normal 8.5-10.2 [facility] Comment on above: Order Comment: Speci men Type: BLOOD SPECIMENOrdering Facility: [facility] Address: [address] [place] [address] Performed By: #### 1 91239, 3, ####[facility] LABORATORYCLIA [id number] [place] [address] [place] Chloride [Moles/Vol] 103 mmol/L Normal 97-105 [facility] Comment on above: Order Comment: Speci men Type: BLOOD SPECIMENOrdering Facility: [facility] Address: [address] [place] [address] Performed By: #### 1 9123-9, 3, ####[facility] LABORATORYCLIA [id number] [place] [address] [place] CO2 [Moles/Vol] 22 mmol/L Normal 22-30 [facility] Comment on above: Order Comment: Speci men Type: BLOOD SPECIMENOrdering Facility: [facility] Address: [address] [place] [address] Performed By: #### 1 9123-9, 3039-3, 37906-2 ####[facility] LABORATORYCLIA [id number] [place] [address] [place] Creatinine [Mass/Vol] 0.83 mg/dL Normal 0.58-0.96 [facility] Comment on above: Order Comment: Geraldo marrero Type: BLOOD SPECIMENOrdering Facility: [facility] Address: [address] [place] [address] Performed By: #### 1 9123-9, 3040-3, 88790-5 ####[facility] LABORATORYCLIA [id number] [place] [address] [place] Creatinine and Glomerular filtration rate.predicted panel (S/P/Bld) 95 mL/min/1.73m??? Normal >=60 [facility] Comment on above: Order Comment: Geraldo marrero Type: BLOOD SPECIMENOrdering Facility: [facility] Address: [address] [place] [address] Result Comment: Jessica mated Glomerular Filtration Rate [...] actual GFR. Performed By: #### 1 9123-9, 3040-3, 80891-4 ####[facility] LABORATORYCLIA [id number] [place] [address] [place] Glucose [Mass/Vol] 77 mg/dL Normal 74-99 [facility] Comment on above: Order Comment: Geraldo marrero Type: BLOOD SPECIMENOrdering Facility: [facility] Address: [address] [place] [address] Result Comment: The [place] Diabetes Association (ADA) provides guidance for cutoff [...] Standards of Medical Care in Diabetes 2016, [place] [employer]. Diabetes Care. 2016.39(Suppl 1). Performed By: #### 1 9123-9, 3040-3, 91031-1 ####[facility] LABORATORYCLIA [id number] [place] [address] [place] Potassium [Moles/Vol] 3.4 mmol/L Low 3.7-5.1 [facility] Comment on above: Order Comment: Speci men Type: BLOOD SPECIMENOrdering Facility: [facility] Address: [address] [place] [address] Performed By: #### 1 9123-9, 3040-3, 34360-6 ####[facility] LABORATORYCLIA [id number] [place] [address] [place] Protein [Mass/Vol] 7.6 g/dL Normal 6.3-8.0 [facility] Comment on above: Order Comment: Speci men Type: BLOOD SPECIMENOrdering Facility: [facility] Address: [address] [place] [address] Performed By: #### 1 9123-9, 0-3, 60592-4 ####[facility] LABORATORYCLIA [id number] [place] [address] [place] Sodium [Moles/Vol] 138 mmol/L Normal 136-144 [facility] Comment on above: Order Comment: Speci men Type: BLOOD SPECIMENOrdering Facility: [facility] Address: [address] [place] [address] Performed By: #### 1 9123-9, 0-3, 11878-5 ####[facility] LABORATORYCLIA [id number] [place] [address] [place] Urea nitrogen [Mass/Vol] 12 mg/dL Normal 7-21 [facility] Comment on above: Order Comment: Speci men Type: BLOOD SPECIMENOrdering Facility: [facility] Address: [address] [place] [address] Performed By: #### 1 9123-9, 3040-3, 98860-1 ####[facility] LABORATORYCLIA [id number] [place] [address] [place] ECG COMPLETEon 06-18-2023 ECG COMPLETE Normal [facility] ED NOTEon 06-18-2023 ED NOTE Normal [facility] ED NOTE HNO ID: [id number] Author: HIEU HERNANDEZ RN Service: ? Author Type: Registered Nurse Type: ED Notes Filed: 06/18/2023 19:05 Note Text: Patient verbalized understanding of discharge instructions and follow up care. Normal [facility] ED NOTE HNO ID: [id number] Author: HIEU HERNANDEZ RN Service: ? Author Type: Registered Nurse Type: ED Notes Filed: 06/18/2023 18:38 Note Text: Long catheter with leg bag inserted and orange juice given via peg tube given per Earnest INMAN verbal order. Normal [facility] ED PROV NOTEon 06-18-2023 ED PROV NOTE Normal [facility] HCG QUALITATIVEon 06-18-2023 HCG, QUALITATIVE Negative Normal Negative [facility] Comment on above: Order Comment: Speci men Type: BLOOD SPECIMENOrdering Facility: [facility] Address: [address] [place] [address] Performed By: #### H CG ####[facility] LABORATORYCLIA [id number] [place] [address] [place] Lipase SerPl-cCncon 06-18-19 Lipase [Catalytic activity/Vol] 31 U/L Normal 16-61 [facility] Comment on above: Order Comment: Speci men Type: BLOOD SPECIMENOrdering Facility: [facility] Address: [address] [place] [address] Performed By: #### 1 9123-9, 3040-3, 94864-0 ####[facility] LABORATORYCLIA [id number] [place] [address] [place] Magnesium SerPl-mCncon 06-17 Magnesium [Mass/Vol] 2.0 mg/dL Normal 1.7-2.3 [facility] Comment on above: Order Comment: Speci men Type: BLOOD SPECIMENOrdering Facility: [facility] Address: [address] [place] [address] Performed By: #### 1 9123-9, 3040-3, 14254-9 ####[facility] LABORATORYCLIA [id number] [place] [address] [place] [facility] Urinalysis complete panel (U )on 06-18-2023 Bacteria LM.HPF (Urine sed) [#/Area] Rare Abnormal None Seen [facility] Comment on above: Order Comment: Speci men Type: URINE SPECIMENOrdering Facility: [facility] Address: [address] [place] [address] Performed By: #### 2 4356-8 ####[facility] LABORATORYCLIA [id number] [place] [address] [place] Bilirubin Ql (U) Negative Normal Negative [facility] Comment on above: Order Comment: Speci men Type: URINE SPECIMENOrdering Facility: [facility] Address: [address] [place] [address] Performed By: #### 2 4356-8 ####[facility] LABORATORYCLIA [id number] [place] [address] [place] Clarity (Unsp spec) Clear Normal Clear [facility] Comment on above: Order Comment: Speci men Type: URINE SPECIMENOrdering Facility: [facility] Address: [address] [place] [address] Performed By: #### 2 4356-8 ####[facility] LABORATORYCLIA [id number] [address] [place] Color (U) Light Yellow Normal Yellow [facility] Comment on above: Order Comment: Speci men Type: URINE SPECIMENOrdering Facility: [facility] Address: [address] [place] [address] Performed By: #### 2 4356-8 ####[facility] LABORATORYCLIA [id number] [place] [address] [facility] [place] Epithelial cells LM.HPF (Urine sed) [#/Area] Few Normal [facility] Comment on above: Order Comment: Speci men Type: URINE SPECIMENOrdering Facility: [facility] Address: [address] [place] [address] Performed By: #### 2 4356-8 ####[facility] LABORATORYCLIA [id number] [place] [address] [place] Glucose Test strip (U) [Mass/Vol] Negative Normal Trace, Negative [facility] Comment on above: Order Comment: Speci men Type: URINE SPECIMENOrdering Facility: [facility] Address: [address] [place] [address] Performed By: #### 2 4356-8 ####[facility] LABORATORYCLIA [id number] [place] [address] [place] Hemoglobin Ql (U) Negative Normal Negative, Trace [facility] Comment on above: Order Comment: Speci men Type: URINE SPECIMENOrdering Facility: [facility] Address: [address] [place] [address] Performed By: #### 2 4356-8 ####[facility] LABORATORYCLIA [id number] [place] [address] [place] Ketones Ql (U) Negative Normal Negative, Trace [facility] Comment on above: Order Comment: Speci men Type: URINE SPECIMENOrdering Facility: [facility] Address: [address] [place] [address] Performed By: #### 2 4356-8 ####[facility] LABORATORYCLIA [id number] [address] [place] Leukocyte esterase Test strip Ql (U) Negative Normal Negative, 25 Patito/uL [facility] Comment on above: Order Comment: Speci men Type: URINE SPECIMENOrdering Facility: [facility] Address: [address] [place] [address] Performed By: #### 2 4356-8 ####[facility] LABORATORYCLIA [id number] [address] [place] Nitrite Ql (U) Negative Normal Negative [facility] Comment on above: Order Comment: Speci men Type: URINE SPECIMENOrdering Facility: [facility] Address: [address] [place] [address] Performed By: #### 2 4356-8 ####[facility] LABORATORYCLIA [id number] [place] [address] [place] pH (U) 7.5 [pH] Normal 5.0-8.0 [facility] Comment on above: Order Comment: Speci men Type: URINE SPECIMENOrdering Facility: [facility] Address: [address] [place] [address] Performed By: #### 2 4356-8 ####[facility] LABORATORYCLIA [id number] [place] [address] [place] Protein (U) [Mass/Vol] Negative Normal Trace, Negative [facility] Comment on above: Order Comment: Speci men Type: URINE SPECIMENOrdering Facility: [facility] Address: [address] [place] [address] Performed By: #### 2 4356-8 ####[facility] LABORATORYCLIA [id number] [place] [address] [place] RBC LM.HPF (Urine sed) [#/Area] 0-3 /HPF Normal 0-3 /HPF [facility] Comment on above: Order Comment: Speci men Type: URINE SPECIMENOrdering Facility: [facility] Address: [address] [place] [address] Performed By: #### 2 4356-8 ####[facility] LABORATORYIA [id number] [address] [place] Specific gravity (U) [Rel density] 1.009 Normal 1.005-1.030 [facility] Comment on above: Order Comment: Speci men Type: URINE SPECIMENOrdering Facility: [facility] Address: [address] [place] [address] Performed By: #### 2 4356-8 ####[facility] LABORATORYCLIA [id number] [place] [address] [place] Urobilinogen Ql (U) Normal Normal Normal [facility] Comment on above: Order Comment: Speci men Type: URINE SPECIMENOrdering Facility: [facility] Address: [address] [place] [address] Performed By: #### 2 4356-8 ####[facility] LABORATORYCLIA [id number] [place] [address] [place] WBC LM.HPF (Urine sed) [#/Area] 0-5 /HPF Normal 0-5 /HPF [facility] Comment on above: Order Comment: Speci men Type: URINE SPECIMENOrdering Facility: [facility] Address: [address] [place] [address] Performed By: #### 2 4356-8 ####[facility] LABORATORYCLIA [id number] [place] [address] [place] CNPNon 06-17-2023 CNPN Normal [facility] Home Health Recordson 2023 Home Health Records [id number] B4#1.00TIFF Normal [facility] Physician Referralon 024 Physician Referral [id number] 101#1.00TIFF Normal [facility] Provider Letteron 06-16-2023 Provider Letter Normal [facility] CNPNon 06-15-2023 CNPN Normal [facility] ED Note-Physicianon 06-15-19 24 ED Note-Physician [id number] D0#1.00TIFF Normal [facility] Outside Hospital Correspo ndenceon 06-15-2023 Outside [facility] Correspondence [id number] A2#1.00TIFF Normal [facility] Physician Referralon 024 Physician Referral [id number] 38#1.00TIFF Normal [facility] RAD - CT Reporton 06-15-2023 RAD - CT Report [id number] F9#1.00TIFF Normal [facility] Transfer Inon 06-15-2023 Transfer In [id number] 80#1.00TIFF Normal [facility] Ambulatory Visit Summaryon 0 06-14-2023 Ambulatory Visit Summary Normal [address] [place] [address]- \.br\ Medications\.br\ What How Much When Why [...] for choosing us for your care.\.br\ \.br\ [facility] Auth for Release of Medical Recordson 06-14-2023 Auth for Release of Medical Records [id number] E3#1.00TIFF Normal [facility] CNPNon 06-14-2023 CNPN Normal [facility] Family Medicine Office/Clini c Noteon 06-14-2023 Family Medicine Office/Clinic Note Normal [facility] Comment on above: Result Comment: Elec tronically Signed By: Jaquan Puala\.br\Date and Time Signed: 06/14/23 13:22 EDT Home Health Recordson 2023 Home Health Records [id number] E4#1.00TIFF Normal [facility] Population Healthon 06-11-19 Population Health Normal [facility] Home Health Recordson 2023 Home Health Records [id number] 22#1.00TIFF Normal [facility] Retail - Clinical Noteon Retail - Clinical Note [id number] F2#1.00TIFF Normal [facility] ALLIED HEALTHon 06-09-2023 ALLIED HEALTH Normal [facility] Basic metabolic 2000 panelon 06-09-2023 Anion gap [Moles/Vol] 7 mmol/L Low 9-18 [facility] Comment on above: Order Comment: Speci men Type: BLOOD SPECIMENOrdering Facility: [facility] Address: [address] [place] [address] Performed By: #### 2 4321-2 ####[facility] LABORATORYCLIA [id number] [place] [address] [place] Calcium [Mass/Vol] 8.6 mg/dL Normal 8.5-10.2 [facility] Comment on above: Order Comment: Speci men Type: BLOOD SPECIMENOrdering Facility: [facility] Address: [address] [place] [address] Performed By: #### 2 4321-2 ####[facility] LABORATORYCLIA [id number] [place] [address] [place] Chloride [Moles/Vol] 107 mmol/L High 97-105 [facility] Comment on above: Order Comment: Speci men Type: BLOOD SPECIMENOrdering Facility: [facility] Address: [address] [place] [address] Performed By: #### 2 4321-2 ####[facility] LABORATORYCLIA [id number] [place] [address] [place] CO2 [Moles/Vol] 24 mmol/L Normal 22-30 [facility] Comment on above: Order Comment: Speci men Type: BLOOD SPECIMENOrdering Facility: [facility] Address: [address] [place] [address] Performed By: #### 2 4321-2 ####[facility] HOSPITALIA [id number] [place] [address] [place] Creatinine [Mass/Vol] 0.68 mg/dL Normal 0.58-0.96 [facility] Comment on above: Order Comment: Geraldo [facility] Type: BLOOD SPECIMENOrdering Facility: [facility] Address: [address] [place] [address] Performed By: #### 2 4321-2 ####[facility] HOSPITALIA [id number] [place] [id number] [place] Creatinine and Glomerular filtration rate.predicted panel (S/P/Bld) 117 mL/min/1.73m??? Normal >=60 [facility] Comment on above: Order Comment: Geraldo [facility] Type: BLOOD SPECIMENOrdering Facility: [facility] Address: [address] [place] [address] Result Comment: Jessica mated Glomerular Filtration Rate [...] actual GFR. Performed By: #### 2 4321-2 ####[facility] HOSPITALIA [id number] [place] [id number] [place] Glucose [Mass/Vol] 89 mg/dL Normal 74-99 [facility] Comment on above: Order Comment: Geraldo [facility] Type: BLOOD SPECIMENOrdering Facility: [facility] Address: [address] [place] [address] Result Comment: The [place] [employer] (ADA) provides guidance for cutoff [...] Standards of Medical Care in Diabetes 2016, [place] [employer]. Diabetes Care. 2016.39(Suppl 1). Performed By: #### 2 4321-2 ####[facility] [id number] [place] [address] [place] Potassium [Moles/Vol] 4.1 mmol/L Normal 3.7-5.1 [facility] Comment on above: Order Comment: Lyssai elida Type: BLOOD SPECIMENOrdering Facility: [facility] Address: [address] [place] [address] Performed By: #### 2 4321-2 ####[facility] [id number] [place] [id number] [place] Sodium [Moles/Vol] 138 mmol/L Normal 136-144 [facility]spital Comment on above: Order Comment: Geraldo marrero Type: BLOOD SPECIMENOrdering Facility: [facility] Address: [address] [place] [address] Performed By: #### 2 4321-2 ####[facility] [id number] [place] [address] [place] Urea nitrogen [Mass/Vol] 10 mg/dL Normal 7-21 [facility] Comment on above: Order Comment: Lyssai men Type: BLOOD SPECIMENOrdering Facility: [facility] Address: [address] [place] [address] Performed By: #### 2 4321-2 ####[facility] [id number] [place] [address] [place] CASE MANAGEMon 06-09-2023 CASE MANAGEM Normal [facility] CNDSon 06-09-2023 CNDS [facility] CONSULT PROGon 06-08-2023 CONSULT PROG Normal [facility] TOXICOLOGY SCREEN, ROUTINE U RINEon 06-08-2023 Amphetamines Confirm (U) [Mass/Vol] Negative Normal Negative [facility] Comment on above: Order Comment: Speci men Type: URINE SPECIMENOrdering Facility: [facility] Address: [address] [place] [address] Result Comment: Cuto ff threshold at 1000 ng/mL. Performed By: #### U TOX2 ####[facility] LABORATORYCLIA [id number] [place] [address] [place] BARBITURATES, URINE Negative Normal Negative [facility] Comment on above: Order Comment: Speci men Type: URINE SPECIMENOrdering Facility: [facility] Address: [address] [place] [address] Result Comment: Cuto ff threshold at 200 ng/mL. Performed By: #### U TOX2 ####[facility] LABORATORYIA [id number] [place] [address] [place] BENZODIAZEPINES, UR Negative Normal Negative [facility] Comment on above: Order Comment: Speci men Type: URINE SPECIMENOrdering Facility: [facility] Address: [address] [place] [address] Result Comment: Cuto ff threshold at 200 ng/mL. Performed By: #### U TOX2 ####[facility] LABORATORYIA [id number] [place] [address] [place] Cannabinoids Screen Ql (U) Negative Normal Negative [facility] Comment on above: Order Comment: Speci men Type: URINE SPECIMENOrdering Facility: [facility] Address: [address] [place] [address] Result Comment: Cuto ff threshold at 50 ng/mL. Performed By: #### U TOX2 ####[facility] LABORATORYIA [id number] [place] [address] [place] Cocaine Ql (U) Negative Normal Negative [facility] Comment on above: Order Comment: Speci men Type: URINE SPECIMENOrdering Facility: [facility] Address: [address], [place] [address] Result Comment: Cuto ff threshold at 300 ng/mL. Performed By: #### U TOX2 ####[facility] LABORATORYIA [id number] [place] [address] [place] Ethanol (U) [Mass/Vol] <11 Normal <11 [facility] Comment on above: Order Comment: Speci men Type: URINE SPECIMENOrdering Facility: [facility] Address: [address] [place] [address] Performed By: #### U TOX2 ####[facility] LABORATORYIA [id number] [place] [address] [place] Opiates Screen Ql (U) Negative Normal Negative [facility] Comment on above: Order Comment: Speci men Type: URINE SPECIMENOrdering Facility: [facility] Address: [address] [place] [address] Result Comment: Cuto ff threshold at 300 ng/mL. Performed By: #### U TOX2 ####[facility] [id number] [address] [place] oxyCODONE cutoff Screen (U) [Mass/Vol] Negative Normal Negative [facility] Comment on above: Order Comment: Speci men Type: URINE SPECIMENOrdering Facility: [facility] Address: [address] [place] [address] Result Comment: Cuto ff threshold at 100 ng/mL. Performed By: #### U TOX2 ####[facility]ITALIA [id number] [place] [id number] [place] Phencyclidine Ql (U) Negative Normal Negative [facility] Comment on above: Order Comment: Speci men Type: URINE SPECIMENOrdering Facility: [facility] Address: [address] [place] [address] Result Comment: Cuto ff threshold at 25 ng/mL. Performed By: #### U TOX2 ####[facility]ITALIA [id number] [place] [address] [place] Basic metabolic 2000 panelon 06-07-2023 Anion gap [Moles/Vol] 9 mmol/L Normal 9-18 [facility] Comment on above: Order Comment: Speci men Type: BLOOD SPECIMENOrdering Facility: [facility] Address: [address] [place] [address] Performed By: #### 2 4321-2 ####[facility] LABORATORYIA [id number] [place] [address] [place] Calcium [Mass/Vol] 8.7 mg/dL Normal 8.5-10.2 [facility] Comment on above: Order Comment: Speci men Type: BLOOD SPECIMENOrdering Facility: [facility] Address: [address] [place] [address] Performed By: #### 2 4321-2 ####[facility] [id number] [place] [address] [place] Chloride [Moles/Vol] 108 mmol/L High 97-105 [facility] Comment on above: Order Comment: Speci men Type: BLOOD SPECIMENOrdering Facility: [facility] Address: [address] [place] [address] Performed By: #### 2 4321-2 ####[facility] [id number] [place] [address] [place] CO2 [Moles/Vol] 23 mmol/L Normal 22-30 [facility] Comment on above: Order Comment: Speci men Type: BLOOD SPECIMENOrdering Facility: [facility] Address: [address] [place] [address] Performed By: #### 2 4321-2 ####[facility]ORATORYIA [id number] [place] [address] [place] Creatinine [Mass/Vol] 0.68 mg/dL Normal 0.58-0.96 [facility] Comment on above: Order Comment: Speci men Type: BLOOD SPECIMENOrdering Facility: [facility] Address: [address] [place] [address] Performed By: #### 2 4321-2 ####[facility]ORATORYIA [id number] [place] [address] [place] Creatinine and Glomerular filtration rate.predicted panel (S/P/Bld) 117 mL/min/1.73m??? Normal >=60 [facility] Comment on above: Order Comment: Geraldo marrero Type: BLOOD SPECIMENOrdering Facility: [facility] Address: [address] [place] [address] Result Comment: Jessica mated Glomerular Filtration Rate [...] actual GFR. Performed By: #### 2 4321-2 ####[facility] LABORATORYCLIA [id number] [facility] [place] [address] [place] Glucose [Mass/Vol] 98 mg/dL Normal 74-99 [facility] Comment on above: Order Comment: Geraldo marrero Type: BLOOD SPECIMENOrdering Facility: [facility] Address: [address] [place] [address] Result Comment: The [place] Diabetes Association (ADA) provides guidance for cutoff [...] Standards of Medical Care in Diabetes 2016, [place] [employer] Association. Diabetes Care. 2016.39(Suppl 1). Performed By: #### 2 4321-2 ####[facility] LABORATORYCLIA [id number] [facility] [place] [address] [place] Potassium [Moles/Vol] 4.2 mmol/L Normal 3.7-5.1 [facility] Comment on above: Order Comment: Speci men Type: BLOOD SPECIMENOrdering Facility: [facility] Address: [address] [place] [address] Performed By: #### 2 4321-2 ####[facility]ITALIA [id number] [place] [address] [place] Sodium [Moles/Vol] 140 mmol/L Normal 136-144 [facility] ospital Comment on above: Order Comment: Speci men Type: BLOOD SPECIMENOrdering Facility: [facility] Address: [address] [place] [address] Performed By: #### 2 4321-2 ####[facility] [id number] [place] [address] [place] Urea nitrogen [Mass/Vol] 9 mg/dL Normal 7-21 [facility] Comment on above: Order Comment: Speci men Type: BLOOD SPECIMENOrdering Facility: [facility] Address: [address] [place] [address] Performed By: #### 2 4321-2 ####[facility] [id number] [place] [address] [place] [facility] CBC panel Auto (Bld)on 06-06 Erythrocyte distribution width (RBC) [Ratio] 13.7 % Normal 11.5-15.0 [facility] Comment on above: Order Comment: Speci men Type: BLOOD SPECIMENOrdering Facility: [facility] Address: [address] [place] [address] Performed By: #### 5 8410-2 ####[facility]ITALIA [id number] [place] [address] [place] Hematocrit (Bld) [Volume fraction] 32.6 % Low 36.0-46.0 [facility] Comment on above: Order Comment: Speci men Type: BLOOD SPECIMENOrdering Facility: [facility] Address: [address] [place] [address] Performed By: #### 5 8410-2 ####[facility] LABORATORYIA [id number] [place] [address] [place] Hemoglobin (Bld) [Mass/Vol] 10.8 g/dL Low 11.5-15.5 [facility] Comment on above: Order Comment: Speci men Type: BLOOD SPECIMENOrdering Facility: [facility] Address: [address] [place] [address] Performed By: #### 5 8410-2 ####[facility]ORATORYIA [id number] [address] [place] MCH (RBC) [Entitic mass] 29.9 pg Normal 26.0-34.0 [facility] Comment on above: Order Comment: Speci men Type: BLOOD SPECIMENOrdering Facility: [facility] Address: [address] [place] [address] Performed By: #### 5 8410-2 ####[facility] [id number] [address] [place] MCHC (RBC) [Mass/Vol] 33.1 g/dL Normal 30.5-36.0 [facility] Comment on above: Order Comment: Speci men Type: BLOOD SPECIMENOrdering Facility: [facility] Address: [address] [place] [address] Performed By: #### 5 8410-2 ####[facility]ORATORYIA [id number] [address] [place] MCV (RBC) [Entitic vol] 90.3 fL Normal 80.0-100.0 [facility] Comment on above: Order Comment: Speci men Type: BLOOD SPECIMENOrdering Facility: [facility] Address: [address] [place] [address] Performed By: #### 5 8410-2 ####[facility] [id number] [address] [place] Nucleated RBC (Bld) [#/Vol] 10*3/uL Normal <0.01 [facility] Comment on above: Order Comment: Speci men Type: BLOOD SPECIMENOrdering Facility: [facility] Address: [address] [place] [address] Performed By: #### 5 8410-2 ####[facility]ITALIA [id number] [place] [address] [place] Platelet mean volume (Bld) [Entitic vol] 10.5 fL Normal 9.0-12.7 [facility] Comment on above: Order Comment: Speci men Type: BLOOD SPECIMENOrdering Facility: [facility] Address: [address] [place] [address] Performed By: #### 5 8410-2 ####[facility]ORATORYIA [id number] [place] [address] [place] Platelets (Bld) [#/Vol] 258 10*3/uL Normal 150-400 [facility] Comment on above: Order Comment: Speci men Type: BLOOD SPECIMENOrdering Facility: [facility] Address: [address] [place] [address] Performed By: #### 5 8410-2 ####[facility] [id number] [place] [address] [place] RBC (Bld) [#/Vol] 3.61 10*6/uL Low 3.90-5.20 [facility] Comment on above: Order Comment: Speci men Type: BLOOD SPECIMENOrdering Facility: [facility] Address: [address] [place] [address] Performed By: #### 5 8410-2 ####[facility]ORATORYIA [id number] [place] [address] [place] WBC (Bld) [#/Vol] 3.65 10*3/uL Low 3.70-11.00 [facility] Comment on above: Order Comment: Speci men Type: BLOOD SPECIMENOrdering Facility: [facility] Address: [address] [place] [address] Performed By: #### 5 8410-2 ####[facility]ORATORYIA [id number] [facility] [place] [address] [place] CONSULTon 06-07-2023 CONSULT Normal [facility] CONSULT Normal [facility] NUTRITIONon 06-07-2023 NUTRITION Normal [facility] CBC W Auto Differential pane l (Bld)on 06-06-2023 Basophils (Bld) [#/Vol] 0.05 10*3/uL Normal <0.11 [facility] Comment on above: Order Comment: Speci men Type: BLOOD SPECIMENOrdering Facility: [facility] Address: [address] [place] [address] Performed By: #### 5 7021-8 ####[facility] LABORATORYCLIA [id number] [place] [id number] [place] Basophils/100 WBC (Bld) 1.0 % Normal [facility] Comment on above: Order Comment: Speci men Type: BLOOD SPECIMENOrdering Facility: [facility] Address: [address] [place] [address] Performed By: #### 5 7021-8 ####[facility] LABORATORYCLIA [id number] [place] [address] [place] Differential cell count method Nom (Bld) Auto Normal [facility] Comment on above: Order Comment: Speci men Type: BLOOD SPECIMENOrdering Facility: [facility] Address: [address] [place] [address] Performed By: #### 5 7021-8 ####[facility] LABORATORYCLIA [id number] [facility] [place] [address] [place] Eosinophils (Bld) [#/Vol] 0.11 10*3/uL Normal <0.46 [facility] Comment on above: Order Comment: Speci men Type: BLOOD SPECIMENOrdering Facility: [facility] Address: [address] [place] [address] Performed By: #### 5 7021-8 ####[facility] LABORATORYCLIA [id number] [facility] [address] [place] Eosinophils/100 WBC (Bld) 2.2 % Normal [facility] Comment on above: Order Comment: Speci men Type: BLOOD SPECIMENOrdering Facility: [facility] Address: [address] [place] [address] Performed By: #### 5 7021-8 ####[facility]ITALIA [id number] [place] [address] [place] Erythrocyte distribution width (RBC) [Ratio] 13.4 % Normal 11.5-15.0 [facility] Comment on above: Order Comment: Speci men Type: BLOOD SPECIMENOrdering Facility: [facility] Address: [address] [place] [address] Performed By: #### 5 7021-8 ####[facility]ITALIA [id number] [place] [address] [place] Hematocrit (Bld) [Volume fraction] 35.9 % Low 36.0-46.0 [facility] Comment on above: Order Comment: Speci men Type: BLOOD SPECIMENOrdering Facility: [facility] Address: [address] [place] [address] Performed By: #### 5 7021-8 ####[facility]ITALIA [id number] [place] [address] [place] Hemoglobin (Bld) [Mass/Vol] 12.2 g/dL Normal 11.5-15.5 [facility] Comment on above: Order Comment: Speci men Type: BLOOD SPECIMENOrdering Facility: [facility] Address: [address] [place] [address] Performed By: #### 5 7021-8 ####[facility]ORATORYIA [id number] [place] [address] [place] Immature granulocytes (Bld) [#/Vol] 10*3/uL Normal <0.10 [facility] Comment on above: Order Comment: Speci men Type: BLOOD SPECIMENOrdering Facility: [facility] Address: [address] [place] [address] Performed By: #### 5 7021-8 ####[facility]ORATORYIA [id number] [place] [id number] [place] Immature granulocytes/100 WBC (Bld) 0.2 % Normal [facility] Comment on above: Order Comment: Speci men Type: BLOOD SPECIMENOrdering Facility: [facility] Address: [address] [place] [address] Performed By: #### 5 7021-8 ####[facility] LABORATORYCLIA [id number] [place] [address] [place] Lymphocytes (Bld) [#/Vol] 1.70 10*3/uL Normal 1.00-4.00 [facility] Comment on above: Order Comment: Speci men Type: BLOOD SPECIMENOrdering Facility: [facility] Address: [address] [place] [address] Performed By: #### 5 7021-8 ####[facility]ORATORYIA [id number] [address] [place] Lymphocytes/100 WBC (Bld) 33.3 % Normal [facility] Comment on above: Order Comment: Speci men Type: BLOOD SPECIMENOrdering Facility: [facility] Address: [address] [place] [address] Performed By: #### 5 7021-8 ####[facility] LABORATORYIA [id number] [place] [address] [place] MCH (RBC) [Entitic mass] 30.1 pg Normal 26.0-34.0 [facility] Comment on above: Order Comment: Speci men Type: BLOOD SPECIMENOrdering Facility: [facility] Address: [address] [place] [address] Performed By: #### 5 7021-8 ####[facility] LABORATORYIA [id number] [place] [address] [place] MCHC (RBC) [Mass/Vol] 34.0 g/dL Normal 30.5-36.0 [facility] Comment on above: Order Comment: Speci men Type: BLOOD SPECIMENOrdering Facility: [facility] Address: [address] [place] [address] Performed By: #### 5 7021-8 ####[facility] LABORATORYIA [id number] [place] [address] [place] MCV (RBC) [Entitic vol] 88.6 fL Normal 80.0-100.0 [facility] Comment on above: Order Comment: Speci men Type: BLOOD SPECIMENOrdering Facility: [facility] Address: [address] [place] [address] Performed By: #### 5 7021-8 ####[facility]ORATORYIA [id number] [place] [address] [place] Monocytes (Bld) [#/Vol] 0.42 10*3/uL Normal <0.87 [facility] Comment on above: Order Comment: Speci men Type: BLOOD SPECIMENOrdering Facility: [facility] Address: [address] [place] [address] Performed By: #### 5 7021-8 ####[facility]ITALIA [id number] [place] [address] [place] Monocytes/100 WBC (Bld) 8.2 % Normal [facility] Comment on above: Order Comment: Speci men Type: BLOOD SPECIMENOrdering Facility: [facility] Address: [address] [place] [address] Performed By: #### 5 7021-8 ####[facility]ITALIA [id number] [place] [address] [place] Neutrophils (Bld) [#/Vol] 2.81 10*3/uL Normal 1.45-7.50 [facility] Comment on above: Order Comment: Speci men Type: BLOOD SPECIMENOrdering Facility: [facility] Address: [address] [place] [address] Performed By: #### 5 7021-8 ####[facility] LABORATORYIA [id number] [place] [address] [place] Neutrophils/100 WBC (Bld) 55.1 % Normal [facility] Comment on above: Order Comment: Speci men Type: BLOOD SPECIMENOrdering Facility: [facility] Address: [address] [place] [address] Performed By: #### 5 7021-8 ####[facility]IA [id number] [place] [address] [place] Nucleated RBC (Bld) [#/Vol] 10*3/uL Normal <0.01 [facility] Comment on above: Order Comment: Speci men Type: BLOOD SPECIMENOrdering Facility: [facility] Address: [address] [place] [address] Performed By: #### 5 7021-8 ####[facility] LABORATORYIA [id number] [place] [address] [place] Nucleated RBC/100 WBC (Bld) [Ratio] 0.0 /100 WBC Normal [facility] Comment on above: Order Comment: Speci men Type: BLOOD SPECIMENOrdering Facility: [facility] Address: [address] [place] [address] Performed By: #### 5 7021-8 ####[facility]IA [id number] [place] [address] [place] Platelet mean volume (Bld) [Entitic vol] 10.3 fL Normal 9.0-12.7 [facility] Comment on above: Order Comment: Speci men Type: BLOOD SPECIMENOrdering Facility: [facility] Address: [address] [place] [address] Performed By: #### 5 7021-8 ####[facility] [id number] [place] [address] [place] Platelets (Bld) [#/Vol] 323 10*3/uL Normal 150-400 [facility] Comment on above: Order Comment: Speci men Type: BLOOD SPECIMENOrdering Facility: [facility] Address: [address] [place] [address] Performed By: #### 5 7021-8 ####[facility] LABORATORYIA [id number] [place] [address] [place] RBC (Bld) [#/Vol] 4.05 10*6/uL Normal 3.90-5.20 [facility] Comment on above: Order Comment: Speci men Type: BLOOD SPECIMENOrdering Facility: [facility] Address: [facility] [place] [address] Performed By: #### 5 7021-8 ####[facility] LABORATORYCLIA [id number] [facility] [place] [address] [place] WBC (Bld) [#/Vol] 5.10 10*3/uL Normal 3.70-11.00 [facility] Comment on above: Order Comment: Speci men Type: BLOOD SPECIMENOrdering Facility: [facility] Address: [address] [place], [place] [address] [address] Performed By: #### 5 7021-8 ####[facility] LABORATORYCLIA [id number] [facility] [address] [place] ABD/PEL W IVCONon 024 CT ABD/PEL W IVCON Normal [facility] ospital Comprehensive metabolic 2000 panelon 06-06-2023 Albumin [Mass/Vol] 4.3 g/dL Normal 3.9-4.9 [facility] Comment on above: Order Comment: Speci men Type: BLOOD SPECIMENOrdering Facility: [facility] Address: [address] [place], [place] [address] [address] Performed By: #### 2 4323-8, 0-3, ####[facility] LABORATORYCLIA [id number] [facility] [place] [address] [place] ALP [Catalytic activity/Vol] 62 U/L Normal 34-123 [facility] Comment on above: Order Comment: Speci men Type: BLOOD SPECIMENOrdering Facility: [facility] Address: [address] [place], [place] [address] [address] Performed By: #### 2 4323-8, 3040-3, ####[facility] LABORATORYCLIA [id number] [facility] [place] [place] [address] [place] ALT [Catalytic activity/Vol] 16 U/L Normal 7-38 [facility] Comment on above: Order Comment: Speci men Type: BLOOD SPECIMENOrdering Facility: [facility] Address: [address] [place] [address] Performed By: #### 2 4323-8, 0-3, ####[facility] LABORATORYCLIA [id number] [place] [address] [place] Anion gap [Moles/Vol] 10 mmol/L Normal 9-18 [facility] Comment on above: Order Comment: Speci men Type: BLOOD SPECIMENOrdering Facility: [facility] Address: [address] [place] [address] Performed By: #### 2 4323-8, 3, ####[facility] [id number] [place] [address] [place] AST [Catalytic activity/Vol] 28 U/L Normal 13-35 [facility] Comment on above: Order Comment: Speci men Type: BLOOD SPECIMENOrdering Facility: [facility] Address: [address] [place], [place] [address] Performed By: #### 2 4323-8, 3, ####[facility]ITAL[facility] [id number] [place] [address] [place] Bilirubin [Mass/Vol] 0.3 mg/dL Normal 0.2-1.3 [facility] Comment on above: Order Comment: Speci men Type: BLOOD SPECIMENOrdering Facility: [facility] Address: [address] [place] [address] Performed By: #### 2 4323-8, 3039-3, ####[facility] LABORATORYIA [id number] [place] [address] [place] Calcium [Mass/Vol] 9.1 mg/dL Normal 8.5-10.2 [facility] Comment on above: Order Comment: Speci men Type: BLOOD SPECIMENOrdering Facility: [facility] Address: [address] [place] [address] Performed By: #### 2 4323-8, 3040-3, ####[facility] LABORATORYCLIA [id number] [facility] [place] [place] [address] [place] Chloride [Moles/Vol] 103 mmol/L Normal 97-105 [facility] Comment on above: Order Comment: Speci men Type: BLOOD SPECIMENOrdering Facility: [facility] Address: [address] [place] [address] Performed By: #### 2 4323-8, 0-3, ####[facility] LABORATORYCLIA [id number] [place] [address] [place] CO2 [Moles/Vol] 23 mmol/L Normal 22-30 [facility] Comment on above: Order Comment: Speci men Type: BLOOD SPECIMENOrdering Facility: [facility] Address: [address] [place] [address] Performed By: #### 2 4323-8, 0-3, ####[facility] [id number] [facility] [place] [address] [place] Creatinine [Mass/Vol] 0.74 mg/dL Normal 0.58-0.96 [facility] Comment on above: Order Comment: Speci men Type: BLOOD SPECIMENOrdering Facility: [facility] Address: [address] [place] [address] Performed By: #### 2 4323-8, 03, ####[facility] LABORATORYIA [id number] [facility] [place] [address] [place] Creatinine and Glomerular filtration rate.predicted panel (S/P/Bld) 109 mL/min/1.73m??? Normal >=60 [facility] Comment on above: Order Comment: Speci men Type: BLOOD SPECIMENOrdering Facility: [facility] Address: [address] [place] [address] Result Comment: Jessica mated Glomerular Filtration Rate [...] GFR. Performed By: #### 2 4323-8, 0-3, ####[facility] LABORATORYCLIA [id number] [place] [address] [place] Glucose [Mass/Vol] 91 mg/dL Normal 74-99 [facility] Comment on above: Order Comment: Speci men Type: BLOOD SPECIMENOrdering Facility: [facility] Address: [address] [place] [address] Result Comment: The [place] Diabetes Association (ADA) provides guidance for cutoff [...] Standards of Medical Care in Diabetes 2016, [place] Diabetes Association. Diabetes Care. 2016.39(Suppl 1). Performed By: #### 2 4323-8, 0-3, ####[facility] LABORATORYCLIA [id number] [place] [address] [place] Potassium [Moles/Vol] 4.0 mmol/L Normal 3.7-5.1 [facility] Comment on above: Order Comment: Speci men Type: BLOOD SPECIMENOrdering Facility: [facility] Address: [address] [place] [address] Performed By: #### 2 4323-8, 0-3, ####[facility] LABORATORYCLIA [id number] [place] [address] [place] Protein [Mass/Vol] 7.4 g/dL Normal 6.3-8.0 [facility] Comment on above: Order Comment: Speci men Type: BLOOD SPECIMENOrdering Facility: [facility] Address: [facility] [place] [id number] Performed By: #### 2 4323-8, 3040-3, ####[facility] LABORATORYCLIA [id number] [facility] [place] [address] [place] Sodium [Moles/Vol] 136 mmol/L Normal 136-144 [facility] Comment on above: Order Comment: Speci men Type: BLOOD SPECIMENOrdering Facility: [facility] Address: [address] [place] [address] Performed By: #### 2 4323-8, 0-3, ####[facility]ITALIA [id number] [place] [address] [place] [address] [facility] Urea nitrogen [Mass/Vol] 14 mg/dL Normal 7- [facility] Comment on above: Order Comment: Speci men Type: BLOOD SPECIMENOrdering Facility: [facility] Address: [address] [place], [place] [address] Performed By: #### 2 4323-8, 3039-3, ####[facility]ITALIA [id number] [place] [address] [place] ECG COMPLETEon 06-06-2023 ECG COMPLETE Normal [facility] l ED NOTEon 06-06-2023 ED NOTE Normal [facility] ED NOTE Normal [facility] ED PROV NOTEon 06-06-2023 ED PROV NOTE Normal [facility] l FLUABV+SARS-CoV-2+RSV Pnl Re sp HANK+probeon 06-06-2023 FLUABV+SARS-CoV-2+R SV Pnl Resp HANK+probe Normal [facility] Comment on above: Performed By: #### 9 5941-1 ####[facility] LABORATORYCLIA [id number] [place] [address] [place] HISTORY PHYSICALon HISTORY PHYSICAL Normal [facility] Lipase SerPl-cCncon 06-06-19 Lipase [Catalytic activity/Vol] 75 U/L High 16-61 [facility] Comment on above: Order Comment: Speci men Type: BLOOD SPECIMENOrdering Facility: [facility] Address: [address] [place] [address] Performed By: #### 2 4323-8, 3040-3, 59491-1 ####[facility]ITALIA [id number] [place] [address] [place] Magnesium SerPl-mCncon 06-05 Magnesium [Mass/Vol] 2.1 mg/dL Normal 1.7-2.3 [facility] Comment on above: Order Comment: Speci men Type: BLOOD SPECIMENOrdering Facility: [facility] Address: [address] [place] [address] Performed By: #### 2 4323-8, 3040-3, 49561-5 ####[facility]ITALIA [id number] [place] [address] [place] Urinalysis complete panel (U )on 06-06-2023 Bilirubin Ql (U) Negative Normal Negative [facility] Comment on above: Order Comment: Speci men Type: URINE SPECIMENOrdering Facility: [facility] Address: [address] [place] [address] Performed By: #### 2 4356-8 ####[facility] [id number] [place] [address] [place] Clarity (Unsp spec) Clear Normal Clear [facility] Comment on above: Order Comment: Speci men Type: URINE SPECIMENOrdering Facility: [facility] Address: [address] [place] [address] Performed By: #### 2 4356-8 ####[facility] [id number] [place] [address] [place] Color (U) Light Yellow Normal yellow [facility] Comment on above: Order Comment: Speci men Type: URINE SPECIMENOrdering Facility: [facility] Address: [address] [place] [address] Performed By: #### 2 4356-8 ####[facility]ITALIA [id number] [place] [address] [place] Epithelial cells LM.HPF (Urine sed) [#/Area] Few Normal [facility] Comment on above: Order Comment: Speci men Type: URINE SPECIMENOrdering Facility: [facility] Address: [address] [place] [address] Performed By: #### 2 4356-8 ####[facility]IA [id number] [place] [address] [place] Glucose Test strip (U) [Mass/Vol] Negative Normal Trace, Negative [facility] Comment on above: Order Comment: Speci men Type: URINE SPECIMENOrdering Facility: [facility] Address: [address] [place] [address] Performed By: #### 2 4356-8 ####[facility] [id number] [place] [address] [place] Hemoglobin Ql (U) Negative Normal Negative, Trace [facility] Comment on above: Order Comment: Speci men Type: URINE SPECIMENOrdering Facility: [facility] Address: [address] [place] [address] Performed By: #### 2 4356-8 ####[facility] [id number] [place] [address] [place] Ketones Ql (U) Negative Normal Negative, Trace [facility] Comment on above: Order Comment: Speci men Type: URINE SPECIMENOrdering Facility: [facility] Address: [address] [place] [address] Performed By: #### 2 4356-8 ####[facility] [id number] [place] [address] [place] Leukocyte esterase Test strip Ql (U) Negative Normal Negative, 25 Patito/uL [facility] Comment on above: Order Comment: Speci men Type: URINE SPECIMENOrdering Facility: [facility] Address: [address] [place] [address] Performed By: #### 2 4356-8 ####[facility] [id number] [place] [address] [place] Nitrite Ql (U) Negative Normal Negative [facility] Comment on above: Order Comment: Speci men Type: URINE SPECIMENOrdering Facility: [facility] Address: [address] [place] [address] Performed By: #### 2 4356-8 ####[facility] [id number] [place] [address] [place] pH (U) 7.0 [pH] Normal 5.0-8.0 [facility] Comment on above: Order Comment: Speci men Type: URINE SPECIMENOrdering Facility: [facility] Address: [address] [place] [address] Performed By: #### 2 4356-8 ####[facility] [id number] [place] [address] [place] Protein (U) [Mass/Vol] Trace Normal Trace, Negative [facility] Comment on above: Order Comment: Speci men Type: URINE SPECIMENOrdering Facility: [facility] Address: [address] [place] [address] Performed By: #### 2 4356-8 ####[facility] [id number] [place] [address] [place] RBC LM.HPF (Urine sed) [#/Area] 3-5 /HPF Abnormal 0-3 /HPF [facility] Comment on above: Order Comment: Speci men Type: URINE SPECIMENOrdering Facility: [facility] Address: [address] [place] [address] Performed By: #### 2 4356-8 ####[facility] [id number] [place] [address] [place] Specific gravity (U) [Rel density] 1.024 Normal 1.005-1.030 [facility] Comment on above: Order Comment: Speci men Type: URINE SPECIMENOrdering Facility: [facility] Address: [address] [place] [address] Performed By: #### 2 4356-8 ####[facility] [id number] [place] [address] [place] Urobilinogen Ql (U) Normal Normal Normal [facility] Comment on above: Order Comment: Speci men Type: URINE SPECIMENOrdering Facility: [facility] Address: [address] [place] [address] Performed By: #### 2 4356-8 ####[facility] [id number] [place] [address] [place] WBC LM.HPF (Urine sed) [#/Area] 0-5 /HPF Normal 0-5 /HPF [facility] Comment on above: Order Comment: Speci men Type: URINE SPECIMENOrdering Facility: [facility] Address: [address] [place] [address] Performed By: #### 2 4356-8 ####[facility] [id number] [place] [address] [place] ED Note-Physicianon 06-04-19 ED Note-Physician [phone]. [id number] 4B#1.00TIFF Normal [facility] Ambulatory Visit Summaryon 0 06-02-2023 Ambulatory Visit Summary Normal [address] [place] [address] [place] [address]- \.br\ Medications\.br\ What How Much When Why [...] for choosing us for your care.\.br\ \.br\ [facility] Family Medicine Office/Clini c Noteon 06-02-2023 Family Medicine Office/Clinic Note Normal [facility] Comment on above: Result Comment: Elec tronically Signed By: Jaquan Paula\.br\Date and Time Signed: 06/02/23 12:30 EDT Provider Letteron 06-02-2023 Provider Letter Normal [facility] Provider Letter Normal [facility] Population Healthon 05-31-19 Population Health Normal [facility] Alanine aminotransferase [En zymatic activity/volume] in Serum or PlasmaOrdered By: Gabino Parker on 05-30-2023 ALT [Catalytic activity/Vol] 11 U/L 7-52 [facility] Comment on above: Performed By: #### L IPASE, CMP, CBC, HEPATIC, MG #### [facility] [address] Albumin [Mass/volume] in Ser um or Plasma by Bromocresol green (BCG) dye binding methoOrdered By: Gabino Parker on 05-30-2023 Albumin BCG dye [Mass/Vol] 4.1 g/dL 3.5-5.7 [facility] Alkaline phosphatase [Enzyma tic activity/volume] in Serum or PlasmaOrdered By: Gabino Parker on 05-30-2023 ALP [Catalytic activity/Vol] 56 U/L 34-104 [facility] Comment on above: Performed By: #### L IPASE, CMP, CBC, HEPATIC, MG #### [address] Aspartate aminotransferase [ Enzymatic activity/volume] in Serum or PlasmaOrdered By: Gabino Parker on 05-30-2023 AST [Catalytic activity/Vol] 22 U/L 13-39 [facility] Comment on above: Performed By: #### L IPASE, CMP, CBC, HEPATIC, MG #### [address] Automated basophil %Ordered By: Gabino Parker on 05-30-2023 Basophils/100 WBC (Bld) 0.4 % . [facility] Comment on above: Performed By: #### L IPASE, CMP, CBC, HEPATIC, MG #### [address] Automated basophil countOrde red By: Gabino Parker on 05-30-2023 Basophils (Bld) [#/Vol] 0.0 10*3/uL 0.0-0.2 [facility] Comment on above: Result Comment: PERF ORMED BY: [place] [address] PATHOLOGIST SALES OPERATIONS ASSISTANT BAUTISTA BAKER M.D. Performed By: #### L IPASE, CMP, CBC, HEPATIC, MG #### [address] Automated blood monocyte cou ntOrdered By: Gabino Parker on 05-30-2023 Monocytes (Bld) [#/Vol] 0.4 10*3/uL 0.0-0.8 [facility] Comment on above: Performed By: #### L IPASE, CMP, CBC, HEPATIC, MG #### [address] Automated eosinophil %Ordere d By: Gabino Parker on 05-30-2023 Eosinophils/100 WBC (Bld) 0.4 % . [facility] Comment on above: Performed By: #### L IPASE, CMP, CBC, HEPATIC, MG #### [address] Automated eosinophil countOr dered By: Gabino Parker on 05-30-2023 Eosinophils (Bld) [#/Vol] 0.0 10*3/uL 0.0-0.45 [facility] Comment on above: Performed By: #### L IPASE, CMP, CBC, HEPATIC, MG #### [facility] [address] Automated erythrocytes count in urine sediment (number/area)Ordered By: Gabino Parker on 05-30-2023 RBC Auto (Urine sed) [#/Area] 3-4 [HPF] 0-4 [facility] Automated leukocytes count i n urine sediment (number/area)Ordered By: Gabino Parker on 05-30-2023 WBC Auto (Urine sed) [#/Area] 5-9 [HPF] High 0-4 [facility] Automated monocyte %Ordered By: Gabino Parker on 05-30-2023 Monocytes/100 WBC (Bld) 4.5 % . [facility] Comment on above: Performed By: #### L IPASE, CMP, CBC, HEPATIC, MG #### [address] Automated neutrophil %Ordere d By: Gabino Parker on 05-30-2023 Neutrophils/100 WBC (Bld) 79.0 % . [facility] Comment on above: Performed By: #### L IPASE, CMP, CBC, HEPATIC, MG #### [address] Automated urine color determ inationOrdered By: Gabino Parker on 05-30-2023 Color (U) Yellow Yellow [facility] Comment on above: Order Comment: Name Collection Type:: Clean-Voided Midstream Performed By: #### C BC, BMP, HEPATIC, LIPASE #### [facility] [address] [place] [address] Bilirubin Test strip Ql (U)O rdered By: Gabino Parker on 05-30-2023 Bilirubin Ql (U) Negative Negative [facility] Bilirubin.direct [Mass/volum e] in Serum or PlasmaOrdered By: Gabino Parker on 05-30-2023 Bilirubin.direct [Mass/Vol] 0.10 mg/dL 0.03-0.18 [facility] Bilirubin.total [Mass/volume ] in Serum or PlasmaOrdered By: Gabino Parker on 05-30-2023 Bilirubin [Mass/Vol] 0.4 mg/dL 0.3-1.0 [facility] Comment on above: Performed By: #### L IPASE, CMP, CBC, HEPATIC, MG #### [facility] [address] CNPNon 05-30-2023 CNPN Normal [facility] CT abdomen pelvis w conon CT abdomen pelvis w con [facility] Main [place] [address] [place] [address] CT Scan Report Signed Patient: Abbey Garcia MR#: [id number] : 1990 Acct:[id number] Age/Sex: 33 / F ADM Date: 05/30/23 Loc: ER Room: Type: [facility] ER Attending Dr: Copies to: Gabino [...] Melisa Hutchinson M.D.05/30/2023 5:49 PM Dictation Location: [place] [address] Transcribed By: [facility] 05/30/231748 Dictated By: Melisa Hutchinson II, MD 05/30/231739 Signed By: 05/30/231748 Normal [facility] Calcium [Mass/volume] in Ser um or PlasmaOrdered By: Gabino Parker on 05-30-2023 Calcium [Mass/Vol] 9.3 mg/dL 8.6-10.3 [facility] Comment on above: Performed By: #### L IPASE, CMP, CBC, HEPATIC, MG #### [facility] [address] Carbon dioxide, total [Moles /volume] in Serum or PlasmaOrdered By: Gabino Parker on 05-30-2023 CO2 [Moles/Vol] 27.7 mmol/L 21.0-31.0 [facility] Comment on above: Performed By: #### L IPASE, CMP, CBC, HEPATIC, MG #### [facility] [address] [place] [address] [place] Chloride [Moles/volume] in S elder or PlasmaOrdered By: Gabino Parker on 05-30-2023 Chloride [Moles/Vol] 103 mmol/L 98-107 [facility] Comment on above: Performed By: #### L IPASE, CMP, CBC, HEPATIC, MG #### [address] Complete Blood Count Auto Di ffon 05-30-2023 Mean Corpuscular HGB Conc 33.8 g/dL Normal 32.0-35.0 [facility] Comment on above: Performed By: #### L IPASE, CMP, CBC, HEPATIC, MG #### [address] Monocytes/100 WBC (Bld) 16.47 % Normal 0.00-20.00 [facility] Comment on above: Performed By: #### L IPASE, CMP, CBC, HEPATIC, MG #### [address] NRBC% 0.1 /100{WBC} Normal 0-0.5 [facility] Comment on above: Performed By: #### L IPASE, CMP, CBC, HEPATIC, MG #### [address] Comprehensive Metabolic Pane nestor 05-30-2023 Albumin [Mass/Vol] 4.1 g/dL Normal 3.5-5.7 [facility] Comment on above: Performed By: #### L IPASE, CMP, CBC, HEPATIC, MG #### [address] Creatinine Clr Calc Pharmacy 118.42 Normal [facility] Comment on above: Performed By: #### L IPASE, CMP, CBC, HEPATIC, MG #### [address] GFR/1.73 sq M.predicted MDRD (S/P/Bld) [Vol rate/Area] mL/min/{1.73_m2} Normal [facility] Comment on above: Performed By: #### L IPASE, CMP, CBC, HEPATIC, MG #### [address] Creatinine [Mass/volume] in Serum or PlasmaOrdered By: Gabino Parker on 05-30-2023 Creatinine [Mass/Vol] 0.70 mg/dL 0.60-1.20 [facility] Comment on above: Performed By: #### L IPASE, CMP, CBC, HEPATIC, MG #### [facility] [address] [place] [address] [place] Dipstick and Microscopicon 0 05-30-2023 Appearance (U) Clear Normal Clear [facility] Comment on above: Order Comment: Name Collection Type:: Clean-Voided Midstream Performed By: #### C BC, BMP, HEPATIC, LIPASE #### [address] Bacteria,Urine None Seen Normal None Seen [facility] Comment on above: Order Comment: Name Collection Type:: Clean-Voided Midstream Performed By: #### C BC, BMP, HEPATIC, LIPASE #### [address] Bilirubin,Urine Negative Normal Negative [facility] Comment on above: Order Comment: Name Collection Type:: Clean-Voided Midstream Performed By: #### C BC, BMP, HEPATIC, LIPASE #### [address] Glucose Ql (U) Normal Normal Normal [facility] Comment on above: Order Comment: Name Collection Type:: Clean-Voided Midstream Performed By: #### C BC, BMP, HEPATIC, LIPASE #### [address] Hyaline Casts,Urine 0-8 Normal 0-8 [facility] Comment on above: Order Comment: Name Collection Type:: Clean-Voided Midstream Performed By: #### C BC, BMP, HEPATIC, LIPASE #### [address] Ketones Ql (U) Negative Normal Negative [facility] Comment on above: Order Comment: Name Collection Type:: Clean-Voided Midstream Performed By: #### C BC, BMP, HEPATIC, LIPASE #### [address] Leukocyte esterase Test strip Ql (U) 1+ High Negative [facility] Comment on above: Order Comment: Name Collection Type:: Clean-Voided Midstream Performed By: #### C BC, BMP, HEPATIC, LIPASE #### [place] [address] [place] Nitrite,Urine Negative Normal Negative [facility] Comment on above: Order Comment: Name Collection Type:: Clean-Voided Midstream Performed By: #### C BC, BMP, HEPATIC, LIPASE #### [address] Occult Blood,Urine Negative Normal Negative [facility] Comment on above: Order Comment: Name Collection Type:: Clean-Voided Midstream Performed By: #### C BC, BMP, HEPATIC, LIPASE #### [address] Protein,Urine Negative Normal Negative [facility] Comment on above: Order Comment: Name Collection Type:: Clean-Voided Midstream Performed By: #### C BC, BMP, HEPATIC, LIPASE #### [address] RBC,Urine 3-4 Normal 0-4 [facility] Comment on above: Order Comment: Name Collection Type:: Clean-Voided Midstream Performed By: #### C BC, BMP, HEPATIC, LIPASE #### [address] Specificy [place],Urine 1.011 Normal 1.001-1.030 [facility] Comment on above: Order Comment: Name Collection Type:: Clean-Voided Midstream Performed By: #### C BC, BMP, HEPATIC, LIPASE #### [address] Squamous Epithelial Cell,Urine 0-1 Normal 0-2 [facility] Comment on above: Order Comment: Name Collection Type:: Clean-Voided Midstream Performed By: #### C BC, BMP, HEPATIC, LIPASE #### [address] Urobilinogen,Urine Normal Normal Normal [facility] Comment on above: Order Comment: Name Collection Type:: Clean-Voided Midstream Performed By: #### C BC, BMP, HEPATIC, LIPASE #### [facility] [address] WBC,Urine 5-9 High 0-4 [facility] Comment on above: Order Comment: Name Collection Type:: Clean-Voided Midstream Performed By: #### C BC, BMP, HEPATIC, LIPASE #### [facility] [address] Erythrocyte distribution wid th [Ratio] by Automated countOrdered By: Gabino Parker on 05-30-2023 Erythrocyte distribution width (RBC) [Ratio] 15.5 % High 11.9-15.3 [facility] Comment on above: Performed By: #### L IPASE, CMP, CBC, HEPATIC, MG #### [address] Erythrocytes [#/volume] in B lood by Automated countOrdered By: Gabino Parker on 05-30-2023 RBC (Bld) [#/Vol] 3.86 10*6/uL 3.60-5.00 [facility] Comment on above: Performed By: #### L IPASE, CMP, CBC, HEPATIC, MG #### [address] Glucose [Mass/volume] in Ser um or PlasmaOrdered By: Gabino Parker on 05-30-2023 Glucose [Mass/Vol] 81 mg/dL 70-100 [facility] Comment on above: ADA recommended refe rence rangeRandom Glucose Reference Range is dependent on time and content of last meal. Glucose of more than 200 mg/dL in a nonstressed, ambulatory subject supports the diagnosis of Diabetes Mellitus. Result Comment: [place] om Glucose Reference Range is dependent on time and content of last meal. Glucose of more than 200 mg/dL in a nonstressed, ambulatory subject supports the diagnosis of Diabetes Mellitus. ADA recommended reference range Performed By: #### L IPASE, CMP, CBC, HEPATIC, MG #### [address] HCG ( test) IA.rapi d Ql (U)Ordered By: Gabino Parker on 05-30-2023 HCG ( test) Ql (U) Negative [facility] HCG,Urineon 05-30-2023 Beta HCG ( test) Ql (U) Negative Normal [facility] Comment on above: Order Comment: Name Collection Type:: Clean-Voided Midstream Result Comment: PERF ORMED BY: [place] [address] PATHOLOGIST SALES OPERATIONS ASSISTANT BAUTISTA BAKER M.D. Performed By: #### C BC, BMP, HEPATIC, LIPASE #### [address] Hematocrit [Volume Fraction] of Blood by Automated countOrdered By: Gabino Parker on 05-30-2023 Hematocrit (Bld) [Volume fraction] 34.9 % 34.0-46.4 [facility] Comment on above: Performed By: #### L IPASE, CMP, CBC, HEPATIC, MG #### [address] Hemoglobin [Mass/volume] in BloodOrdered By: Gabino Parker on 05-30-2023 Hemoglobin (Bld) [Mass/Vol] 11.8 g/dL 11.8-15.4 [facility] Comment on above: Performed By: #### L IPASE, CMP, CBC, HEPATIC, MG #### [address] Hepatic Panelon 05-30-2023 Bilirubin,Indirect 0.3 mg/dL Normal [facility] Comment on above: Performed By: #### L IPASE, CMP, CBC, HEPATIC, MG #### [address] Bilirubin.indirect [Mass/Vol] 0.10 mg/dL Normal 0.03-0.18 [facility] Comment on above: Performed By: #### L IPASE, CMP, CBC, HEPATIC, MG #### [address] Ketones Auto test strip (U) [Mass/Vol]Ordered By: Gabino Parker on 05-30-2023 Ketones (U) [Mass/Vol] Negative Negative [facility] - UrinalysisOrder ed By: Gabino Parker on 05-30-2023 Hyaline casts LM Ql (Urine sed) 0-8 [LPF] 0-8 [facility] Leukocytes [#/volume] correc darvin for nucleated erythrocytes in Blood by Automated counOrdered By: Gabino Parker on 05-30-2023 WBC corrected for nucl RBC Auto (Bld) [#/Vol] 8.8 10*3/uL 3.8-11.6 [facility] Leukocytes [#/volume] in Blo od by Automated countOrdered By: Gabino Parker on 05-30-2023 WBC (Bld) [#/Vol] 8.8 10*3/uL 3.8-11.6 [facility] Comment on above: Performed By: #### L IPASE, CMP, CBC, HEPATIC, MG #### [facility] [address] [place] [address] [place] Lipase [Enzymatic activity/v olume] in Serum or PlasmaOrdered By: Gabino Parker on 05-30-2023 Lipase [Catalytic activity/Vol] 37.0 U/L 11.0-82.0 [facility] Comment on above: Result Comment: PERF ORMED BY: [place] [address] PATHOLOGIST SALES OPERATIONS ASSISTANT BAUTISTA BAKER M.D. Performed By: #### L IPASE, CMP, CBC, HEPATIC, MG #### [facility] [address] [place] [address] [place] Lymphocytes [#/volume] in Bl ood by Automated countOrdered By: Gabino Parker on 05-30-2023 Lymphocytes (Bld) [#/Vol] 1.4 10*3/uL 1.00-4.8 [facility] Comment on above: Performed By: #### L IPASE, CMP, CBC, HEPATIC, MG #### [facility] [address] [place] [address] [place] Lymphocytes/100 leukocytes i n Blood by Automated countOrdered By: Gabino Parker on 05-30-2023 Lymphocytes/100 WBC (Bld) 15.7 % . [facility] Comment on above: Performed By: #### L IPASE, CMP, CBC, HEPATIC, MG #### [facility] [address] [place] [address] MCH [Entitic mass] by Automa darvin countOrdered By: Gabino Parker on 05-30-2023 MCH (RBC) [Entitic mass] 30.5 pg 24.7-34.3 [facility] Comment on above: Performed By: #### L IPASE, CMP, CBC, HEPATIC, MG #### [facility] [address] [place] [address] MCHC Auto (RBC) [Mass/Vol]Or dered By: Gabino Parker on 05-30-2023 MCHC (RBC) [Mass/Vol] 33.8 g/dL 32.0-35.0 [facility] MCV [Entitic volume] by Auto mated countOrdered By: Gabino Parker on 05-30-2023 MCV (RBC) [Entitic vol] 90.3 fL 80-100 [facility] Comment on above: Performed By: #### L IPASE, CMP, CBC, HEPATIC, MG #### [facility] [address] [place] [address] Magnesium [Mass/volume] in S elder or PlasmaOrdered By: Gabino Parker on 05-30-2023 Magnesium [Mass/Vol] 2.1 mg/dL 1.9-2.7 [facility] Comment on above: Performed By: #### L IPASE, CMP, CBC, HEPATIC, MG #### [facility] [address] [place] [address] [place] Monocyte distribution width [Entitic volume] in Blood by AutomatedOrdered By: Gabino Parker on 05-30-2023 Monocyte distribution width Auto (Bld) [Entitic vol] 16.47 % 0.00-20.00 [facility] Neutrophils [#/volume] in Bl ood by Automated countOrdered By: Gabino Parker on 05-30-2023 Neutrophils (Bld) [#/Vol] 6.9 10*3/uL 1.8-7.7 [facility] Comment on above: Performed By: #### L IPASE, CMP, CBC, HEPATIC, MG #### [facility] [address] Nitrite Test strip Ql (U)Ord ered By: Gabino Parker on 05-30-2023 Nitrite Ql (U) Negative Negative [facility] No Panel InformationOrdered By: Gabino Parker on 05-30-2023 Estimated GFR (CKD-EPI) > 60.0 mL/Min [facility] Creatinine Clearance (Chem 118.42 [facility] Nucleated erythrocytes [Pres ence] in Blood by Automated countOrdered By: Gabino Parker on 05-30-2023 Nucleated RBC Auto Ql (Bld) 0.1 /100{WBC} 0-0.5 [facility] Platelet mean volume [Entiti c volume] in Blood by Automated countOrdered By: Gabino Parker on 05-30-2023 Platelet mean volume (Bld) [Entitic vol] 9.5 fL 6.3-10.7 [facility] Comment on above: Performed By: #### L IPASE, CMP, CBC, HEPATIC, MG #### [facility] [address] [place] [address] [place] Platelets [#/volume] in Bloo d by Automated countOrdered By: Gabino Parker on 05-30-2023 Platelets (Bld) [#/Vol] 270 10*3/uL 150-450 [facility] Comment on above: Performed By: #### L IPASE, CMP, CBC, HEPATIC, MG #### [facility] [address] [place] [address] [place] Potassium [Moles/volume] in Serum or PlasmaOrdered By: Gabino Parker on 05-30-2023 Potassium [Moles/Vol] 4.0 mmol/L 3.5-5.1 [facility] Comment on above: Performed By: #### L IPASE, CMP, CBC, HEPATIC, MG #### [facility] [address] [place] [address] Protein Auto test strip (U) [Mass/Vol]Ordered By: Gabino Parker on 05-30-2023 Protein (U) [Mass/Vol] Negative Negative [facility] Protein [Mass/volume] in Ser um or PlasmaOrdered By: Gabino Parker on 05-30-2023 Protein [Mass/Vol] 7.2 g/dL 6.4-8.9 [facility] Comment on above: Performed By: #### L IPASE, CMP, CBC, HEPATIC, MG #### [facility] [address] [place] [address] Serum globulin measurement b y calculation (mass/volume)Ordered By: Gabino Parker on 05-30-2023 Globulin (S) [Mass/Vol] 3.1 g/dL [facility] Comment on above: Performed By: #### L IPASE, CMP, CBC, HEPATIC, MG #### [address] Serum or plasma albumin/glob ulin mass ratioOrdered By: Gabino Parker on 05-30-2023 Albumin/Globulin [Mass ratio] 1.3 {ratio} [facility] Comment on above: Performed By: #### L IPASE, CMP, CBC, HEPATIC, MG #### [facility] [address] [place] [address] Serum or plasma anion gap de terminationOrdered By: Gabino Parker on 05-30-2023 Anion gap [Moles/Vol] 12.3 mmol/L 6.0-15.0 [facility] Comment on above: Performed By: #### L IPASE, CMP, CBC, HEPATIC, MG #### [address] Serum or plasma non-glucuron idated bilirubin measurement (mass/volume)Ordered By: Gabino Parker on 05-30-2023 Bilirubin.indirect [Mass/Vol] 0.3 mg/dL [facility] Sodium [Moles/volume] in Ser um or PlasmaOrdered By: Gabino Parker on 05-30-2023 Sodium [Moles/Vol] 139 mmol/L 136-145 [facility] Comment on above: Performed By: #### L IPASE, CMP, CBC, HEPATIC, MG #### [address] [place] [address] [facility] Specific gravity Auto test s trip (U) [Rel density]Ordered By: Gabino Parker on 05-30-2023 Specific gravity (U) [Rel density] 1.011 1.001-1.030 [facility] Squamous epithelial cells de tection in urine sediment by light microscopyOrdered By: Gabino Parker on 05-30-2023 Epithelial cells.squamous LM Ql (Urine sed) 0-1 [HPF] 0-2 [facility] Urea nitrogen [Mass/volume] in Serum or PlasmaOrdered By: Gabino Parker on 05-30-2023 Urea nitrogen [Mass/Vol] 6 mg/dL Low 7-25 [facility] Comment on above: Performed By: #### L IPASE, CMP, CBC, HEPATIC, MG #### [facility] [address] [place] [address] Urine Cultureon 05-30-2023 Bacteria identified Cx Nom (U) 75,000 colonies/ml mixed bacterial skin contaminants 2 Days PERFORMED BY: [place] [address] PATHOLOGIST SALES OPERATIONS ASSISTANT BAUTISTA BAKER M.D. Normal [facility] Comment on above: Performed By: #### C BC, BMP, HEPATIC, LIPASE #### [place] [id number] [facility] Urine bacteria detection by automated methodOrdered By: Gabino Parker on 05-30-2023 Bacteria Auto Ql (U) None seen None Seen [facility] Urine clarity by refractomet ry automatedOrdered By: Gabino Parker on 05-30-2023 Clarity Refractometry automated (U) Clear Clear [facility] Urine culture routineOrdered By: Gabino Parker on 05-30-2023 Bacteria identified Cx Nom (U) 2 Days [facility] Urine glucose measurement by automated test strip (mass/volume)Ordered By: Gabino Parker on 05-30-2023 Glucose Auto test strip (U) [Mass/Vol] Normal mg/dL Normal [facility] Urine hemoglobin detection b y automated test stripOrdered By: Gabino Parker on 05-30-2023 Hemoglobin Auto test strip Ql (U) Negative Negative [facility] Urine leukocyte esterase det ection by automated test stripOrdered By: Gabino Parker on 05-30-2023 Leukocyte esterase Auto test strip Ql (U) 1+ High Negative [facility] Urine pH measurement by auto mated test stripOrdered By: Gabino Parker on 05-30-2023 pH (U) [pH] 5.0-9.0 [facility] Comment on above: Order Comment: Name Collection Type:: Clean-Voided Midstream Performed By: #### C BC, BMP, HEPATIC, LIPASE #### [facility] [address] Urobilinogen Auto test strip (U) [Mass/Vol]Ordered By: Gabino Parker on 05-30-2023 Urobilinogen (U) [Mass/Vol] Normal mg/dL Normal [facility] Basic metabolic 2000 panelon 05-28-2023 Anion gap [Moles/Vol] 10 mmol/L Normal 9-18 [facility] Comment on above: Order Comment: Speci men Type: BLOOD SPECIMENOrdering Facility: [facility] Address: [address] [place] [address] Performed By: #### 1 9123-9, 2777-1, 52338-4 ####[facility]ATORYCLIA [id number] [place] [id number] [place] Calcium [Mass/Vol] 8.5 mg/dL Normal 8.5-10.2 [facility] Comment on above: Order Comment: Speci men Type: BLOOD SPECIMENOrdering Facility: [facility] Address: [address] [place] [address] Performed By: #### 1 9123-9, 2777-1, 19629-2 ####[facility] LABORATORYCLIA [id number] [place] [address] [place] Chloride [Moles/Vol] 105 mmol/L Normal 97-105 [facility] Comment on above: Order Comment: Speci men Type: BLOOD SPECIMENOrdering Facility: [facility] Address: [address] [place] [address] Performed By: #### 1 9123-9, 2777-, 79769-4 ####[facility] LABORATORYCLIA [id number] [place] [address] [place] CO2 [Moles/Vol] 24 mmol/L Normal 22-30 [facility] Comment on above: Order Comment: Speci men Type: BLOOD SPECIMENOrdering Facility: [facility] Address: [address] [place] [address] Performed By: #### 1 9123-9, 27708-15, 88915-4 ####[facility] LABORATORYCLIA [id number] [place] [address] [place] Creatinine [Mass/Vol] 0.52 mg/dL Low 0.58-0.96 [facility] Comment on above: Order Comment: Speci men Type: BLOOD SPECIMENOrdering Facility: [facility] Address: [address] [place] [address] Performed By: #### 1 9123-9, 27708-15, ####[facility] LABORATORYCLIA [id number] [place] [address] [place] Creatinine and Glomerular filtration rate.predicted panel (S/P/Bld) 125 mL/min/1.73m??? Normal >=60 [facility] Comment on above: Order Comment: Speci men Type: BLOOD SPECIMENOrdering Facility: [facility] Address: [address] [place] [address] Result Comment: Jessica mated Glomerular Filtration Rate [...] GFR. Performed By: #### 1 9123-9, 2777, 43910-1 ####[facility] LABORATORYCLIA [id number] [place] [address] [place] Glucose [Mass/Vol] 77 mg/dL Normal 74-99 [facility] Comment on above: Order Comment: Speci men Type: BLOOD SPECIMENOrdering Facility: [facility] Address: [address] [place] [id number] Result Comment: The [place] Diabetes Association (ADA) provides guidance for cutoff [...] Standards of Medical Care in Diabetes 2016, [place] Diabetes Association. Diabetes Care. 2016.39(Suppl 1). Performed By: #### 1 9123-9, 2777-, 42771-5 ####[facility] LABORATORYCLIA [id number] [place] [address] [place] Potassium [Moles/Vol] 4.2 mmol/L Normal 3.7-5.1 [facility] Comment on above: Order Comment: Speci men Type: BLOOD SPECIMENOrdering Facility: [facility] Address: [address] [place] [address] Performed By: #### 1 9123-9, 2777-, 26153-0 ####[facility] LABORATORYCLIA [id number] [place] [address] [place] Sodium [Moles/Vol] 139 mmol/L Normal 136-144 [facility] Comment on above: Order Comment: Speci men Type: BLOOD SPECIMENOrdering Facility: [facility] Address: [address] [place] [id number] Performed By: #### 1 9123-9, 2777, 93454-1 ####[facility] LABORATORYCLIA [id number] [place] [address] [place] Urea nitrogen [Mass/Vol] 8 mg/dL Normal 7-21 [facility] Comment on above: Order Comment: Speci men Type: BLOOD SPECIMENOrdering Facility: [facility] Address: [address] [place] [address] Performed By: #### 1 9123-9, 2777-1, 05965-8 ####[facility] LABORATORYCLIA [id number] [place] [address] [facility] CBC panel Auto (Bld)on 05-27 Erythrocyte distribution width (RBC) [Ratio] 13.7 % Normal 11.5-15.0 [facility] Comment on above: Order Comment: Speci men Type: BLOOD SPECIMENOrdering Facility: [facility] Address: [address] [place] [address] Performed By: #### 5 8410-2 ####[facility] LABORATORYCLIA [id number] [address] Hematocrit (Bld) [Volume fraction] 31.5 % Low 36.0-46.0 [facility] Comment on above: Order Comment: Speci men Type: BLOOD SPECIMENOrdering Facility: [facility] Address: [address] [place] [address] Performed By: #### 5 8410-2 ####[facility] LABORATORYCLIA [id number] [address] [place] Hemoglobin (Bld) [Mass/Vol] 11.1 g/dL Low 11.5-15.5 [facility] Comment on above: Order Comment: Speci men Type: BLOOD SPECIMENOrdering Facility: [facility] Address: [address] [place] [address] Performed By: #### 5 8410-2 ####[facility] LABORATORYCLIA [id number] [place] [address] [place] MCH (RBC) [Entitic mass] 31.4 pg Normal 26.0-34.0 [facility] Comment on above: Order Comment: Speci men Type: BLOOD SPECIMENOrdering Facility: [facility] Address: [address] [place] [address] Performed By: #### 5 8410-2 ####[facility]ORATORYCLIA [id number] [address] [place] MCHC (RBC) [Mass/Vol] 35.2 g/dL Normal 30.5-36.0 [facility] Comment on above: Order Comment: Speci men Type: BLOOD SPECIMENOrdering Facility: [facility] Address: [address] [place] [address] Performed By: #### 5 8410-2 ####[facility]ORATORYCLIA [id number] [place] [address] [place] MCV (RBC) [Entitic vol] 89.2 fL Normal 80.0-100.0 [facility] Comment on above: Order Comment: Speci men Type: BLOOD SPECIMENOrdering Facility: [facility] Address: [address] [place] [address] Performed By: #### 5 8410-2 ####[facility] LABORATORYCLIA [id number] [address] [place] Nucleated RBC (Bld) [#/Vol] 10*3/uL Normal <0.01 [facility] Comment on above: Order Comment: Speci men Type: BLOOD SPECIMENOrdering Facility: [facility] Address: [address] [place] [address] Performed By: #### 5 8410-2 ####[facility] LABORATORYCLIA [id number] [place] [address] [place] Platelet mean volume (Bld) [Entitic vol] 11.8 fL Normal 9.0-12.7 [facility] Comment on above: Order Comment: Speci men Type: BLOOD SPECIMENOrdering Facility: [facility] Address: [address] [place] [address] Performed By: #### 5 8410-2 ####[facility] LABORATORYCLIA [id number] [place] [address] [place] Platelets (Bld) [#/Vol] 199 10*3/uL Normal 150-400 [facility] Comment on above: Order Comment: Speci men Type: BLOOD SPECIMENOrdering Facility: [facility] Address: [address] [place] [address] Performed By: #### 5 8410-2 ####[facility] LABORATORYCLIA [id number] [place] [address] [place] RBC (Bld) [#/Vol] 3.53 10*6/uL Low 3.90-5.20 [facility] Comment on above: Order Comment: Speci men Type: BLOOD SPECIMENOrdering Facility: [facility] Address: [address] [place] [address] Performed By: #### 5 8410-2 ####[facility] LABORATORYCLIA [id number] [place] [address] [place] WBC (Bld) [#/Vol] 6.24 10*3/uL Normal 3.70-11.00 [facility] Comment on above: Order Comment: Speci men Type: BLOOD SPECIMENOrdering Facility: [facility] Address: [address] [place] [address] Performed By: #### 5 8410-2 ####[facility] LABORATORYCLIA [id number] [place] [address] [place] CNCOon 05-28-2023 CNCO Letter Text Normal [facility] CNDSon 05-28-2023 CNDS Normal [facility] CNPNon 05-28-2023 CNPN Normal [facility] Magnesium SerPl-ncon 05-27 Magnesium [Mass/Vol] 1.9 mg/dL Normal 1.7-2.3 [facility] Comment on above: Order Comment: Speci men Type: BLOOD SPECIMENOrdering Facility: [facility] Address: [address] [place] [address] Performed By: #### 1 9123-9, 2777-1, 79775-2 ####[facility] LABORATORYCLIA [id number] [place] [id number] [place] NURSING PROGon 05-28-2023 NURSING PROG Normal [facility] Phosphate SerPl-mCncon 05-27 Phosphate [Mass/Vol] 2.3 mg/dL Low 2.7-4.8 [facility] Comment on above: Order Comment: Speci men Type: BLOOD SPECIMENOrdering Facility: [facility] Address: [address] [place] [address] Performed By: #### 1 9123-9, 2777-1, 95711-5 ####[facility] LABORATORYCLIA [id number] [place] [address] [place] Basic metabolic 2000 panelon 05-27-2023 Anion gap [Moles/Vol] 10 mmol/L Normal 9-18 [facility] Comment on above: Order Comment: Speci men Type: BLOOD SPECIMENOrdering Facility: [facility] Address: [address] [place] [address] Performed By: #### 2 777-1, 94613-2, ####[facility] LABORATORYCLIA [id number] [place] [address] [place] Calcium [Mass/Vol] 8.9 mg/dL Normal 8.5-10.2 [facility] Comment on above: Order Comment: Speci men Type: BLOOD SPECIMENOrdering Facility: [facility] Address: [address] [place] [address] Performed By: #### 2 777-1, 56068-8, ####[facility] LABORATORYCLIA [id number] [place] [address] [place] Chloride [Moles/Vol] 104 mmol/L Normal 97-105 [facility] Comment on above: Order Comment: Speci men Type: BLOOD SPECIMENOrdering Facility: [facility] Address: [address] [place] [id number] Performed By: #### 2 777-1, 99810-8, ####[facility] LABORATORYCLIA [id number] [place] [address] [place] CO2 [Moles/Vol] 25 mmol/L Normal 22-30 [facility] Comment on above: Order Comment: Speci men Type: BLOOD SPECIMENOrdering Facility: [facility] Address: [address] [place] [id number] Performed By: #### 2 777-1, 56838-6, ####[facility] LABORATORYCLIA [id number] [address] [place] [facility] Creatinine [Mass/Vol] 0.57 mg/dL Low 0.58-0.96 [facility] Comment on above: Order Comment: Geraldo marrero Type: BLOOD SPECIMENOrdering Facility: [facility] Address: [address] [place] [address] Performed By: #### 2 777-1, 48828-1, ####[facility] LABORATORYCLIA [id number] [place] [address] [facility] Creatinine and Glomerular filtration rate.predicted panel (S/P/Bld) 122 mL/min/1.73m??? Normal >=60 [facility] Comment on above: Order Comment: Geraldo marrero Type: BLOOD SPECIMENOrdering Facility: [facility] Address: [address] [place] [address] Result Comment: Jessica mated Glomerular Filtration Rate [...] actual GFR. Performed By: #### 2 777-1, 27778-6, ####[facility] LABORATORYCLIA [id number] [place] [address] [place] Glucose [Mass/Vol] 101 mg/dL High 74-99 [facility] Comment on above: Order Comment: Geraldo marrero Type: BLOOD SPECIMENOrdering Facility: [facility] Address: [address] [place] [address] Result Comment: The [place] Diabetes Association (ADA) provides guidance for cutoff [...] Standards of Medical Care in Diabetes 2016, [place] Diabetes Association. Diabetes Care. 2016.39(Suppl 1). Performed By: #### 2 777-1, 79933-6, ####[facility] LABORATORYCLIA [id number] [place] [address] [place] Potassium [Moles/Vol] 4.0 mmol/L Normal 3.7-5.1 [facility] Comment on above: Order Comment: Speci men Type: BLOOD SPECIMENOrdering Facility: [facility] Address: [address] [place] [address] Performed By: #### 2 777-1, 20749-6, ####[facility] LABORATORYCLIA [id number] [place] [id number] [place] Sodium [Moles/Vol] 139 mmol/L Normal 136-144 [facility] Comment on above: Order Comment: Speci men Type: BLOOD SPECIMENOrdering Facility: [facility] Address: [address] [place] [address] Performed By: #### 2 777-1, , ####[facility] LABORATORYCLIA [id number] [place] [address] [place] Urea nitrogen [Mass/Vol] 6 mg/dL Low 7-21 [facility] Comment on above: Order Comment: Speci men Type: BLOOD SPECIMENOrdering Facility: [facility] Address: [address] [place] [address] Performed By: #### 2 777-1, 87916-5, ####[facility] LABORATORYCLIA [id number] [place] [address] [place] CASE MANAGEMon 05-27-2023 CASE MANAGEM Normal [facility] CBC panel Auto (Bld)on 05-26 Erythrocyte distribution width (RBC) [Ratio] 13.5 % Normal 11.5-15.0 [facility] Comment on above: Order Comment: Speci men Type: BLOOD SPECIMENOrdering Facility: [facility] Address: [address] [place] [address] Performed By: #### 5 8410-2 ####[facility] LABORATORYCLIA [id number] [address] [place] Hematocrit (Bld) [Volume fraction] 36.5 % Normal 36.0-46.0 [facility] Comment on above: Order Comment: Speci men Type: BLOOD SPECIMENOrdering Facility: [facility] Address: [address] [place] [address] Performed By: #### 5 8410-2 ####[facility] LABORATORYCLIA [id number] [place] [address] [place] Hemoglobin (Bld) [Mass/Vol] 12.8 g/dL Normal 11.5-15.5 [facility] Comment on above: Order Comment: Speci men Type: BLOOD SPECIMENOrdering Facility: [facility] Address: [address] [place] [address] Performed By: #### 5 8410-2 ####[facility] LABORATORYCLIA [id number] [place] [address] [place] MCH (RBC) [Entitic mass] 30.9 pg Normal 26.0-34.0 [facility] Comment on above: Order Comment: Speci men Type: BLOOD SPECIMENOrdering Facility: [facility] Address: [address] [place] [address] Performed By: #### 5 8410-2 ####[facility] LABORATORYCLIA [id number] [place] [address] [place] MCHC (RBC) [Mass/Vol] 35.1 g/dL Normal 30.5-36.0 [facility] Comment on above: Order Comment: Speci men Type: BLOOD SPECIMENOrdering Facility: [facility] Address: [address] [place] [address] Performed By: #### 5 8410-2 ####[facility] LABORATORYCLIA [id number] [address] [place] MCV (RBC) [Entitic vol] 88.2 fL Normal 80.0-100.0 [facility] Comment on above: Order Comment: Speci men Type: BLOOD SPECIMENOrdering Facility: [facility] Address: [address] [place] [address] Performed By: #### 5 8410-2 ####[facility] LABORATORYCLIA [id number] [place] [address] [place] Nucleated RBC (Bld) [#/Vol] 10*3/uL Normal <0.01 [facility] Comment on above: Order Comment: Speci men Type: BLOOD SPECIMENOrdering Facility: [facility] Address: [address] [place] [address] Performed By: #### 5 8410-2 ####[facility] LABORATORYCLIA [id number] [place] [address] [place] Platelet mean volume (Bld) [Entitic vol] 11.5 fL Normal 9.0-12.7 [facility] Comment on above: Order Comment: Speci men Type: BLOOD SPECIMENOrdering Facility: [facility] Address: [address] [place] [address] Performed By: #### 5 8410-2 ####[facility] LABORATORYCLIA [id number] [place] [address] [place] Platelets (Bld) [#/Vol] 205 10*3/uL Normal 150-400 [facility] Comment on above: Order Comment: Speci men Type: BLOOD SPECIMENOrdering Facility: [facility] Address: [address] [place] [address] Performed By: #### 5 8410-2 ####[facility] LABORATORYCLIA [id number] [place] [address] [place] RBC (Bld) [#/Vol] 4.14 10*6/uL Normal 3.90-5.20 [facility] Comment on above: Order Comment: Speci men Type: BLOOD SPECIMENOrdering Facility: [facility] Address: [address] [place] [address] Performed By: #### 5 8410-2 ####[facility] LABORATORYCLIA [id number] [place] [address] [place] WBC (Bld) [#/Vol] 6.24 10*3/uL Normal 3.70-11.00 [facility] Comment on above: Order Comment: Speci men Type: BLOOD SPECIMENOrdering Facility: [facility] Address: [address] [place], [place] [address] Performed By: #### 5 8410-2 ####[facility] LABORATORYCLIA [id number] [place] [address] [place] Magnesium SerPl-mCncon 05-26 Magnesium [Mass/Vol] 1.8 mg/dL Normal 1.7-2.3 [facility] Comment on above: Order Comment: Speci men Type: BLOOD SPECIMENOrdering Facility: [facility] Address: [address] [place] [address] Performed By: #### 2 777-1, 35742-3, ####[facility] LABORATORYCLIA [id number] [place] [address] [place] NURSING PROGon 05-27-2023 NURSING PROG Normal [facility] NUTRITIONon 05-27-2023 NUTRITION Normal [facility] Phosphate SerPl-mCncon 05-26 Phosphate [Mass/Vol] 2.4 mg/dL Low 2.7-4.8 [facility] Comment on above: Order Comment: Speci men Type: BLOOD SPECIMENOrdering Facility: [facility] Address: [address] [place] [address] Performed By: #### 2 777-1, 89927-4, ####[facility] LABORATORYCLIA [id number] [place] [address] [place] ALLIED HEALTHon 05-26-2023 ALLIED HEALTH Normal [facility] Basic metabolic 2000 panelon 05-26-2023 Anion gap [Moles/Vol] 13 mmol/L Normal 9-18 [facility] Comment on above: Order Comment: Speci men Type: BLOOD SPECIMENOrdering Facility: [facility] Address: [address] [place] [address] Performed By: #### 2 4321-2, , 2776-02 ####[facility] LABORATORYCLIA [id number] [place] [address] [place] Calcium [Mass/Vol] 9.0 mg/dL Normal 8.5-10.2 [facility] Comment on above: Order Comment: Speci men Type: BLOOD SPECIMENOrdering Facility: [facility] Address: [address] [place] [address] Performed By: #### 2 4321-2, , 2776-02 ####[facility] LABORATORYCLIA [id number] [place] [address] [place] Chloride [Moles/Vol] 103 mmol/L Normal 97-105 [facility] Comment on above: Order Comment: Speci men Type: BLOOD SPECIMENOrdering Facility: [facility] Address: [address] [place] [address] Performed By: #### 2 1-2, , 2776-02 ####[facility] LABORATORYCLIA [id number] [place] [address] [place] CO2 [Moles/Vol] 20 mmol/L Low 22-30 [facility] Comment on above: Order Comment: Speci men Type: BLOOD SPECIMENOrdering Facility: [facility] Address: [address] [place] [address] Performed By: #### 2 4321-2, , 2776-02 ####[facility] LABORATORYCLIA [id number] [place] [address] [place] Creatinine [Mass/Vol] 0.68 mg/dL Normal 0.58-0.96 [facility] Comment on above: Order Comment: Speci men Type: BLOOD SPECIMENOrdering Facility: [facility] Address: [address] [place] [address] Performed By: #### 2 4321-2, , 2776-02 ####[facility] LABORATORYCLIA [id number] [place] [address] [place] Creatinine and Glomerular filtration rate.predicted panel (S/P/Bld) 117 mL/min/1.73m??? Normal >=60 [facility] Comment on above: Order Comment: Geraldo marrero Type: BLOOD SPECIMENOrdering Facility: [facility] Address: [address] [place] [address] Result Comment: Jessica mated Glomerular Filtration Rate [...] actual GFR. Performed By: #### 2 4321-2, 12411-5, 2776-02 ####[facility] LABORATORYCLIA [id number] [place] [address] [place] Glucose [Mass/Vol] 71 mg/dL Low 74-99 [facility] Comment on above: Order Comment: Geraldo marrero Type: BLOOD SPECIMENOrdering Facility: [facility] Address: [address] [place] [address] Result Comment: The [place] Diabetes Association (ADA) provides guidance for cutoff [...] Standards of Medical Care in Diabetes 2016, [place] Diabetes Association. Diabetes Care. 2016.39(Suppl 1). Performed By: #### 2 4321-2, , 2776-02 ####[facility] LABORATORYCLIA [id number] [place] [address] [place] Potassium [Moles/Vol] 4.3 mmol/L Normal 3.7-5.1 [facility] Comment on above: Order Comment: Geraldo marrero Type: BLOOD SPECIMENOrdering Facility: [facility] Address: [address] [place] [id number] Performed By: #### 2 4321-2, , 2776-02 ####[facility] LABORATORYCLIA [id number] [place] [address] [place] Sodium [Moles/Vol] 136 mmol/L Normal 136-144 [facility] Comment on above: Order Comment: Speci men Type: BLOOD SPECIMENOrdering Facility: [facility] Address: [address] [place] [address] Performed By: #### 2 4321-2, , 2776-02 ####[facility] LABORATORYCLIA [id number] [place] [address] [place] Urea nitrogen [Mass/Vol] 10 mg/dL Normal 7-21 [facility] Comment on above: Order Comment: Speci men Type: BLOOD SPECIMENOrdering Facility: [facility] Address: [address] [place] [address] Performed By: #### 2 4321-2, , 2776-02 ####[facility] LABORATORYCLIA [id number] [place] [address] [place] CASE MGT INIT ASSESon 2023 CASE MGT INIT ASSES Normal [facility] CBC panel Auto (Bld)on 05-25 Erythrocyte distribution width (RBC) [Ratio] 13.3 % Normal 11.5-15.0 [facility] Comment on above: Order Comment: Speci men Type: BLOOD SPECIMENOrdering Facility: [facility] Address: [address] [place] [address] Performed By: #### 5 8410-2 ####[facility] LABORATORYCLIA [id number] [place] [address] [place] Hematocrit (Bld) [Volume fraction] 33.8 % Low 36.0-46.0 [facility] Comment on above: Order Comment: Speci men Type: BLOOD SPECIMENOrdering Facility: [facility] Address: [address] [place] [address] Performed By: #### 5 8410-2 ####[facility] LABORATORYCLIA [id number] [place] [address] [place] Hemoglobin (Bld) [Mass/Vol] 11.5 g/dL Normal 11.5-15.5 [facility] Comment on above: Order Comment: Speci men Type: BLOOD SPECIMENOrdering Facility: [facility] Address: [address] [place] [address] Performed By: #### 5 8410-2 ####[facility] LABORATORYCLIA [id number] [place] [address] [place] MCH (RBC) [Entitic mass] 30.5 pg Normal 26.0-34.0 [facility] Comment on above: Order Comment: Speci men Type: BLOOD SPECIMENOrdering Facility: [facility] Address: [address] [place] [address] Performed By: #### 5 8410-2 ####[facility] LABORATORYCLIA [id number] [address] [place] MCHC (RBC) [Mass/Vol] 34.0 g/dL Normal 30.5-36.0 [facility] Comment on above: Order Comment: Speci men Type: BLOOD SPECIMENOrdering Facility: [facility] Address: [address] [place] [address] Performed By: #### 5 8410-2 ####[facility] LABORATORYCLIA [id number] [address] [place] MCV (RBC) [Entitic vol] 89.7 fL Normal 80.0-100.0 [facility] Comment on above: Order Comment: Speci men Type: BLOOD SPECIMENOrdering Facility: [facility] Address: [address] [place] [address] Performed By: #### 5 8410-2 ####[facility] LABORATORYCLIA [id number] [address] [place] Nucleated RBC (Bld) [#/Vol] 10*3/uL Normal <0.01 [facility] Comment on above: Order Comment: Speci men Type: BLOOD SPECIMENOrdering Facility: [facility] Address: [address] [place] [address] Performed By: #### 5 8410-2 ####[facility] LABORATORYCLIA [id number] [place] [address] [place] Platelet mean volume (Bld) [Entitic vol] 11.7 fL Normal 9.0-12.7 [facility] Comment on above: Order Comment: Speci men Type: BLOOD SPECIMENOrdering Facility: [facility] Address: [address] [place] [address] Performed By: #### 5 8410-2 ####[facility] LABORATORYCLIA [id number] [place] [address] [place] Platelets (Bld) [#/Vol] 181 10*3/uL Normal 150-400 [facility] Comment on above: Order Comment: Speci men Type: BLOOD SPECIMENOrdering Facility: [facility] Address: [address] [place] [address] Performed By: #### 5 8410-2 ####[facility] LABORATORYCLIA [id number] [place] [address] [place] RBC (Bld) [#/Vol] 3.77 10*6/uL Low 3.90-5.20 [facility] Comment on above: Order Comment: Speci men Type: BLOOD SPECIMENOrdering Facility: [facility] Address: [address] [place] [address] Performed By: #### 5 8410-2 ####[facility] LABORATORYCLIA [id number] [place] [address] [place] WBC (Bld) [#/Vol] 5.34 10*3/uL Normal 3.70-11.00 [facility] Comment on above: Order Comment: Speci men Type: BLOOD SPECIMENOrdering Facility: [facility] Address: [address] [place] [address] Performed By: #### 5 8410-2 ####[facility] LABORATORYCLIA [id number] [place] [address] [place] Magnesium SerPl-mCncon 05-25 Magnesium [Mass/Vol] 1.6 mg/dL Low 1.7-2.3 [facility] Comment on above: Order Comment: Speci men Type: BLOOD SPECIMENOrdering Facility: [facility] Address: [address] [place] [address] Performed By: #### 2 4321-2, 40822-9, 2777-1 ####[facility] LABORATORYCLIA [id number] [place] [address] [place] NUTRITIONon 05-26-2023 NUTRITION Normal [facility] Phosphate [facility]Pl[facility] Phosphate [Mass/Vol] 4.5 mg/dL Normal 2.7-4.8 [facility] Comment on above: Order Comment: Speci men Type: BLOOD SPECIMENOrdering Facility: [facility] Address: [address] [place] [address] Performed By: #### 2 4321-2, , 2777 ####[facility] LABORATORYCLIA [id number] [address] [place] XR ABDOMEN 1V SUPINEon 05-25 XR ABDOMEN 1V SUPINE Normal [facility] ANES POSTPROC EVALon 024 ANES POSTPROC EVAL Normal [facility] ANES PRE-OPon 05-25-2023 ANES PRE-OP [facility] HISTORY PHYSICALon HISTORY PHYSICAL Normal [facility] NURSING PROGon 05-25-2023 NURSING PROG Normal [facility] NURSING PROG Normal [facility] Upper GI endoscopyon 024 Upper GI endoscopy Normal [facility] CNPNon 05-24-2023 CNPN Normal [facility] Recordson 2023 Home Health Records [id number] 0E#1.00TIFF Normal [facility] Basic metabolic 2000 panelon 05-22-2023 Anion gap [Moles/Vol] 10 mmol/L Normal 9-18 [facility] Comment on above: Order Comment: Speci men Type: BLOOD SPECIMENOrdering Facility: [facility] Address: [address] [place] [address], [place] [address] Performed By: #### 2 4321-2, , 2776-02 ####[facility] LABORATORYCLIA [id number] [place] [address] [place] Calcium [Mass/Vol] 8.9 mg/dL Normal 8.5-10.2 [facility] Comment on above: Order Comment: Speci men Type: BLOOD SPECIMENOrdering Facility: [facility] Address: [address] [place] [id number] Performed By: #### 2 4321-2, , 2776-02 ####[facility] LABORATORYCLIA [id number] [place] [address] [place] Chloride [Moles/Vol] 110 mmol/L High 97-105 [facility] Comment on above: Order Comment: Speci men Type: BLOOD SPECIMENOrdering Facility: [facility] Address: [facility] [place] [address] Performed By: #### 2 4321-2, , 2776-02 ####[facility] LABORATORYCLIA [id number] [place] [address] [place] CO2 [Moles/Vol] 23 mmol/L Normal 22-30 [facility] Comment on above: Order Comment: Speci men Type: BLOOD SPECIMENOrdering Facility: [facility] Address: [address] [place] [id number] Performed By: #### 2 4321-2, , 2776-02 ####[facility] LABORATORYCLIA [id number] [place] [address] [place] Creatinine [Mass/Vol] 0.73 mg/dL Normal 0.58-0.96 [facility] Comment on above: Order Comment: Speci men Type: BLOOD SPECIMENOrdering Facility: [facility] Address: [address] [place] [id number] Performed By: #### 2 4321-2, , 2776-02 ####[facility] LABORATORYCLIA [id number] [place] [address] [place] Creatinine and Glomerular filtration rate.predicted panel (S/P/Bld) 111 mL/min/1.73m??? Normal >=60 [facility] Comment on above: Order Comment: Geraldo marrero Type: BLOOD SPECIMENOrdering Facility: [facility] Address: [address] [place] [address] Result Comment: Jessica mated Glomerular Filtration Rate [...] Performed By: #### 2 4321-2, , 2776-02 ####[facility] LABORATORYCLIA [id number] [place] [address] [place] Glucose [Mass/Vol] 73 mg/dL Low 74-99 [facility] Comment on above: Order Comment: Geraldo marrero Type: BLOOD SPECIMENOrdering Facility: [facility] Address: [address] [place] [address] Result Comment: The [place] Diabetes Association (ADA) provides guidance for cutoff [...] Standards of Medical Care in Diabetes 2016, [place] Diabetes Association. Diabetes Care. 2016.39(Suppl 1). Performed By: #### 2 4321-2, , 2776-02 ####[facility] LABORATORYCLIA [id number] [place] [address] [place] Potassium [Moles/Vol] 3.7 mmol/L Normal 3.7-5.1 [facility] Comment on above: Order Comment: Speci men Type: BLOOD SPECIMENOrdering Facility: [facility] Address: [address] [place], [place] [address] Performed By: #### 2 4321-2, , 2776-02 ####[facility] LABORATORYCLIA [id number] [place] [address] [place] Sodium [Moles/Vol] 143 mmol/L Normal 136-144 [facility] Comment on above: Order Comment: Speci men Type: BLOOD SPECIMENOrdering Facility: [facility] Address: [address] [place], [place] [address] Performed By: #### 2 4321-2, , 2776-02 ####[facility] LABORATORYCLIA [id number] [place] [address] [place] Urea nitrogen [Mass/Vol] 6 mg/dL Low 7-21 [facility] Comment on above: Order Comment: Speci men Type: BLOOD SPECIMENOrdering Facility: [facility] Address: [address] [place] [address] Performed By: #### 2 4321-2, , 2776-02 ####C[facility] LABORATORYCLIA [id number] [place] [address] [facility] [place] CASE MANAGEMon 05-22-2023 CASE MANAGEM Normal [facility] CNDSon 05-22-2023 CNDS [facility] Magnesium SerPl-[facility]21 Magnesium [Mass/Vol] 1.9 mg/dL Normal 1.7-2.3 [facility] Comment on above: Order Comment: Speci men Type: BLOOD SPECIMENOrdering Facility: [facility] Address: [address] [place], [place] [address] Performed By: #### 2 4321-2, , 2776-02 ####[facility] LABORATORYCLIA [id number] [place] [address] [place] NUTRITIONon 05-22-2023 NUTRITION Normal [facility] Phosphate SerPl-mCncon 05-21 Phosphate [Mass/Vol] 4.3 mg/dL Normal 2.7-4.8 [facility] Comment on above: Order Comment: Speci men Type: BLOOD SPECIMENOrdering Facility: [facility] Address: [address] [place] [address] [place] [address] Performed By: #### 2 4321-2, , 2776-02 ####C[facility] LABORATORYCLIA [id number] [place] [address] [place] Basic metabolic 2000 panelon 05-21-2023 Anion gap [Moles/Vol] 12 mmol/L Normal 9-18 [facility] Comment on above: Order Comment: Speci men Type: BLOOD SPECIMENOrdering Facility: [facility] Address: [address] [place] [address] Performed By: #### 2 4321-2, , 2776-02 ####[facility] LABORATORYCLIA [id number] [place] [address] [place] Calcium [Mass/Vol] 8.8 mg/dL Normal 8.5-10.2 [facility] Comment on above: Order Comment: Speci men Type: BLOOD SPECIMENOrdering Facility: [facility] Address: [address] [place] [address] Performed By: #### 2 4321-2, , 2776-02 ####[facility] LABORATORYCLIA [id number] [place] [address] [place] Chloride [Moles/Vol] 107 mmol/L High 97-105 [facility] Comment on above: Order Comment: Speci men Type: BLOOD SPECIMENOrdering Facility: [facility] Address: [address] [place] [address] Performed By: #### 2 4321-2, , 2776-02 ####C[facility] LABORATORYCLIA [id number] [place] [address] [place] CO2 [Moles/Vol] 19 mmol/L Low 22-30 [facility] Comment on above: Order Comment: Speci men Type: BLOOD SPECIMENOrdering Facility: [facility] Address: [address] [place] [address] Performed By: #### 2 4321-2, 62875-2, 2776-02 ####[facility] LABORATORYCLIA [id number] [place] [address] [place] [facility] Creatinine [Mass/Vol] 0.72 mg/dL Normal 0.58-0.96 [facility] Comment on above: Order Comment: Geraldo marrero Type: BLOOD SPECIMENOrdering Facility: [facility] Address: [address] [place] [address] Performed By: #### 2 4321-2, , 2776-02 ####[facility] LABORATORYCLIA [id number] [place] [address] [facility] Creatinine and Glomerular filtration rate.predicted panel (S/P/Bld) 113 mL/min/1.73m??? Normal >=60 [facility] Comment on above: Order Comment: Geraldo marrero Type: BLOOD SPECIMENOrdering Facility: [facility] Address: [address] [place] [address] Result Comment: Jessica mated Glomerular Filtration Rate [...] actual GFR. Performed By: #### 2 [id number], [id number], [id number] ####[facility] LABORATORYCLIA [id number] [place] [id number] [place] Glucose [Mass/Vol] 85 mg/dL Normal 74-99 [facility] Comment on above: Order Comment: Speci men Type: BLOOD SPECIMENOrdering Facility: [facility] Address: [address] [place] [address] Result Comment: [employer] [place] [employer] (ADA) provides guidance for cutoff [...] Standards of Medical Care in Diabetes 2016, [place] [employer] Association. Diabetes Care. 2016.39(Suppl 1). Performed By: #### 2 4321-2, , 2776-02 ####[facility] LABORATORYCLIA [id number] [place] [id number] [place] Potassium [Moles/Vol] 3.8 mmol/L Normal 3.7-5.1 [facility] Comment on above: Order Comment: Geraldo marrero Type: BLOOD SPECIMENOrdering Facility: [facility] Address: [address] [place], [place] [address] Performed By: #### 2 4321-2, , 2776-02 ####[facility] LABORATORYCLIA [id number] [place] [id number] [place] Sodium [Moles/Vol] 138 mmol/L Normal 136-144 [facility] Comment on above: Order Comment: Geraldo marrero Type: BLOOD SPECIMENOrdering Facility: [facility] Address: [address] [place] [address] Performed By: #### 2 4321-2, , 2776-02 ####[facility] LABORATORYCLIA [id number] [place] [address] [place] Urea nitrogen [Mass/Vol] 5 mg/dL Low 7-21 [facility] Comment on above: Order Comment: Geraldo marrero Type: BLOOD SPECIMENOrdering Facility: [facility] Address: [address] [place] [address] Performed By: #### 2 4321-2, , 2776-02 ####[facility] LABORATORYCLIA [id number] [place] [id number] [place] CASE MANAGEMon 05-21-2023 CASE MANAGEM Normal [facility] CASE MANAGEM Normal [facility] CASE MGT INIT ASSESon 2023 CASE MGT INIT ASS Normal [facility] Magnesium SerPl-ncon 05-20 Magnesium [Mass/Vol] 1.9 mg/dL Normal 1.7-2.3 [facility] Comment on above: Order Comment: Speci men Type: BLOOD SPECIMENOrdering Facility: [facility] Address: [address] [place], [place] [address] Performed By: #### 2 4321-2, 54334-2, 2776-1 ####[facility] LABORATORYCLIA [id number] [place] [id number] [place] NURSING PROGon 05-21-2023 NURSING PROG Normal [facility] Phosphate [Mass/Vol] 4.1 mg/dL Normal 2.7-4.8 [facility] Comment on above: Order Comment: Speci men Type: BLOOD SPECIMENOrdering Facility: [facility] Address: [address] [place] [address] Performed By: #### 2 4321-2, , 277- ####[facility] LABORATORYCLIA [id number] [place] [id number] [place] ALLIED HEALTHon 05-20-2023 ALLIED HEALTH Normal [facility] ANES POSTPROC EVALon 024 ANES POSTPROC EVAL Normal [facility] ANES PRE-OPon 05-20-2023 ANES PRE-OP Normal [facility] Bacteria Ur Culton Bacteria identified Cx Nom (U) ORGANISM ID: 1 10,000 -<50,000 CFU/ml Normal urogenital annika Normal [facility] Comment on above: Performed By: #### 6 30-4 ####[facility] LABCLIA [id number] [place] [id number] [place] Basic metabolic 2000 panelon 05-20-2023 Anion gap [Moles/Vol] 12 mmol/L Normal 9-18 [facility] Comment on above: Order Comment: Speci men Type: BLOOD SPECIMENOrdering Facility: [facility] Address: [address] [place] [address], [place] [address] Performed By: #### 2 4321-2, , 2776-02 ####[facility] LABORATORYCLIA [id number] [place] [address] [place] Calcium [Mass/Vol] 8.8 mg/dL Normal 8.5-10.2 [facility] Comment on above: Order Comment: Speci men Type: BLOOD SPECIMENOrdering Facility: [facility] Address: [address] [place] [address] Performed By: #### 2 4321-2, , 2776-02 ####[facility] LABORATORYCLIA [id number] [place] [address] [place] Chloride [Moles/Vol] 109 mmol/L High 97-105 [facility] Comment on above: Order Comment: Speci men Type: BLOOD SPECIMENOrdering Facility: [facility] Address: [facility] [place] [address] Performed By: #### 2 4321-2, , 2776-02 ####[facility] LABORATORYCLIA [id number] [place] [address] [place] CO2 [Moles/Vol] 21 mmol/L Low 22-30 [facility] Comment on above: Order Comment: Speci men Type: BLOOD SPECIMENOrdering Facility: [facility] Address: [facility] [place] [address] Performed By: #### 2 4321-2, , 2776-02 ####[facility] LABORATORYCLIA [id number] [place] [address] [place] Creatinine [Mass/Vol] 0.75 mg/dL Normal 0.58-0.96 [facility] Comment on above: Order Comment: Speci men Type: BLOOD SPECIMENOrdering Facility: [facility] Address: [address] [place] [address] Performed By: #### 2 4321-2, , 2776-02 ####[facility] LABORATORYCLIA [id number] [place] [address] [place] Creatinine and Glomerular filtration rate.predicted panel (S/P/Bld) 107 mL/min/1.73m??? Normal >=60 [facility] Comment on above: Order Comment: Geraldo marrero Type: BLOOD SPECIMENOrdering Facility: [facility] Address: [address] [place] [address] Result Comment: Jessica mated Glomerular Filtration Rate [...] Performed By: #### 2 4321-2, , 2776-02 ####[facility] LABORATORYCLIA [id number] [place] [address] [place] Glucose [Mass/Vol] 91 mg/dL Normal 74-99 [facility] Comment on above: Order Comment: Geraldo marrero Type: BLOOD SPECIMENOrdering Facility: [facility] Address: [address] [place] [address] Result Comment: The [place] Diabetes Association (ADA) provides guidance for cutoff [...] Standards of Medical Care in Diabetes 2016, [place] Diabetes Association. Diabetes Care. 2016.39(Suppl 1). Performed By: #### 2 4321-2, , 2776-02 ####[facility] LABORATORYCLIA [id number] [place] [address] [place] Potassium [Moles/Vol] 4.1 mmol/L Normal 3.7-5.1 [facility] Comment on above: Order Comment: Speci men Type: BLOOD SPECIMENOrdering Facility: [facility] Address: [address] [place] [address] Performed By: #### 2 4321-2, , 2776-02 ####[facility] LABORATORYCLIA [id number] [place] [address] [place] Sodium [Moles/Vol] 142 mmol/L Normal 136-144 [facility] Comment on above: Order Comment: Speci men Type: BLOOD SPECIMENOrdering Facility: [facility] Address: [address] [place] [address] Performed By: #### 2 4321-2, , 2776-02 ####[facility] LABORATORYCLIA [id number] [place] [address] [place] Urea nitrogen [Mass/Vol] 6 mg/dL Low 7-21 [facility] Comment on above: Order Comment: Speci men Type: BLOOD SPECIMENOrdering Facility: [facility] Address: [address] [place] [address] Performed By: #### 2 4321-2, , 2776-02 ####[facility] LABORATORYCLIA [id number] [place] [address] [place] CBC panel Auto (Bld)on 05-19 Erythrocyte distribution width (RBC) [Ratio] 12.9 % Normal 11.5-15.0 [facility] Comment on above: Order Comment: Speci men Type: BLOOD SPECIMENOrdering Facility: [facility] Address: [address] [place] [address] Performed By: #### 5 8410-2 ####[facility] LABORATORYCLIA [id number] [place] [address] [place] Hematocrit (Bld) [Volume fraction] 36.0 % Normal 36.0-46.0 [facility] Comment on above: Order Comment: Speci men Type: BLOOD SPECIMENOrdering Facility: [facility] Address: [address] [place] [address] Performed By: #### 5 8410-2 ####[facility] LABORATORYCLIA [id number] [place] [address] [place] Hemoglobin (Bld) [Mass/Vol] 12.4 g/dL Normal 11.5-15.5 [facility] Comment on above: Order Comment: Speci men Type: BLOOD SPECIMENOrdering Facility: [facility] Address: [address] [place] [address] Performed By: #### 5 8410-2 ####[facility] LABORATORYCLIA [id number] [address] [place] MCH (RBC) [Entitic mass] 30.8 pg Normal 26.0-34.0 [facility] Comment on above: Order Comment: Speci men Type: BLOOD SPECIMENOrdering Facility: [facility] Address: [address] [place] [address] Performed By: #### 5 8410-2 ####[facility] LABORATORYCLIA [id number] [address] STATES [facility] MCHC (RBC) [Mass/Vol] 34.4 g/dL Normal 30.5-36.0 [facility] Comment on above: Order Comment: Speci men Type: BLOOD SPECIMENOrdering Facility: [facility] Address: [address] [place] [address] Performed By: #### 5 8410-2 ####[facility] LABORATORYCLIA [id number] [address] [place] MCV (RBC) [Entitic vol] 89.6 fL Normal 80.0-100.0 [facility] Comment on above: Order Comment: Speci men Type: BLOOD SPECIMENOrdering Facility: [facility] Address: [address] [place] [address] Performed By: #### 5 8410-2 ####[facility] LABORATORYCLIA [id number] [address] Nucleated RBC (Bld) [#/Vol] 10*3/uL Normal <0.01 [facility] Comment on above: Order Comment: Speci men Type: BLOOD SPECIMENOrdering Facility: [facility] Address: [address] [place] [address] Performed By: #### 5 8410-2 ####[facility] LABORATORYCLIA [id number] [place] [address] [place] Platelet mean volume (Bld) [Entitic vol] 11.4 fL Normal 9.0-12.7 [facility] Comment on above: Order Comment: Speci men Type: BLOOD SPECIMENOrdering Facility: [facility] Address: [address] [place] [address] Performed By: #### 5 8410-2 ####[facility] LABORATORYCLIA [id number] [place] [address] [place] Platelets (Bld) [#/Vol] 176 10*3/uL Normal 150-400 [facility] Comment on above: Order Comment: Speci men Type: BLOOD SPECIMENOrdering Facility: [facility] Address: [address] [place] [address] Performed By: #### 5 8410-2 ####[facility] LABORATORYCLIA [id number] [place] [address] [place] RBC (Bld) [#/Vol] 4.02 10*6/uL Normal 3.90-5.20 [facility] Comment on above: Order Comment: Speci men Type: BLOOD SPECIMENOrdering Facility: [facility] Address: [address] [place] [address] Performed By: #### 5 8410-2 ####[facility] LABORATORYCLIA [id number] [place] [address] [place] WBC (Bld) [#/Vol] 2.51 10*3/uL Low 3.70-11.00 [facility] Comment on above: Order Comment: Speci men Type: BLOOD SPECIMENOrdering Facility: [facility] Address: [address] [place] [address] Performed By: #### 5 8410-2 ####[facility] LABORATORYCLIA [id number] [place] [address] [place] HISTORY PHYSICALon 4 HISTORY PHYSICAL Normal [facility] Magnesium SerPl-mCncon 05-19 Magnesium [Mass/Vol] 1.9 mg/dL Normal 1.7-2.3 [facility] Comment on above: Order Comment: Speci men Type: BLOOD SPECIMENOrdering Facility: [facility] Address: [address] [place] [address] Performed By: #### 2 4321-2, 00360-9, 2776-1 ####[facility] LABORATORYCLIA [id number] [place] [address] [place] NURSING PROGon 05-20-2023 NURSING PROG Normal [facility] NURSING PROG Normal [facility] NURSING PROG Normal [facility] NUTRITIONon 05-20-2023 NUTRITION Normal [facility] Phosphate SerPl-mCncon 05-19 Phosphate [Mass/Vol] 3.8 mg/dL Normal 2.7-4.8 [facility] Comment on above: Order Comment: Speci men Type: BLOOD SPECIMENOrdering Facility: [facility] Address: [address] [place] [address] Performed By: #### 2 4321-2, , 2776- ####[facility] LABORATORYCLIA [id number] [place] [address] [place] Upper GI endoscopyon 024 Upper GI endoscopy Normal [facility] XR ESOPHAGRAMon 05-20-2023 XR ESOPHAGRAM Normal [facility] Basic metabolic 2000 panelon 05-19-2023 Anion gap [Moles/Vol] 16 mmol/L Normal 9-18 [facility] Comment on above: Order Comment: Speci men Type: BLOOD SPECIMENOrdering Facility: [facility] Address: [address] [place] [address] Performed By: #### 2 4321-2 ####[facility] LABORATORYCLIA [id number] [place] [address] [place] Calcium [Mass/Vol] 8.4 mg/dL Low 8.5-10.2 [facility] Comment on above: Order Comment: Speci men Type: BLOOD SPECIMENOrdering Facility: [facility] Address: [address] [place] [address] Performed By: #### 2 4321-2 ####[facility] LABORATORYCLIA [id number] [place] [address] [place] Chloride [Moles/Vol] 104 mmol/L Normal 97-105 [facility] Comment on above: Order Comment: Speci men Type: BLOOD SPECIMENOrdering Facility: [facility] Address: [address] [place] [address] Performed By: #### 2 4321-2 ####[facility] LABORATORYCLIA [id number] [place] [address] [place] CO2 [Moles/Vol] 15 mmol/L Low 22-30 [facility] Comment on above: Order Comment: Speci men Type: BLOOD SPECIMENOrdering Facility: [facility] Address: [address] [place] [address] Performed By: #### 2 4321-2 ####[facility] LABORATORYCLIA [id number] [place] [address] [place] Creatinine [Mass/Vol] 0.71 mg/dL Normal 0.58-0.96 [facility] Comment on above: Order Comment: Speci men Type: BLOOD SPECIMENOrdering Facility: [facility] Address: [address] [place] [address] Performed By: #### 2 4321-2 ####[facility] LABORATORYCLIA [id number] [place] [address] [facility] Creatinine and Glomerular filtration rate.predicted panel (S/P/Bld) 115 mL/min/1.73m??? Normal >=60 [facility] Comment on above: Order Comment: Speci men Type: BLOOD SPECIMENOrdering Facility: [facility] Address: [address] [place] [address] Result Comment: Jessica mated Glomerular Filtration Rate [...] actual GFR. Performed By: #### 2 4321-2 ####[facility] LABORATORYCLIA [id number] [place] [address] [place] Glucose [Mass/Vol] 73 mg/dL Low 74-99 [facility] Comment on above: Order Comment: Geraldo elida Type: BLOOD SPECIMENOrdering Facility: [facility] Address: [address] [place] [address] Result Comment: The [place] Diabetes Association (ADA) provides guidance for cutoff [...] Standards of Medical Care in Diabetes 2016, [place] Diabetes Association. Diabetes Care. 2016.39(Suppl 1). Performed By: #### 2 4321-2 ####[facility] LABORATORYCLIA [id number] [place] [address] [place] Potassium [Moles/Vol] 4.1 mmol/L Normal 3.7-5.1 [facility] Comment on above: Order Comment: Geraldo marrero Type: BLOOD SPECIMENOrdering Facility: [facility] Address: [address] [place] [address] Performed By: #### 2 4321-2 ####[facility] LABORATORYCLIA [id number] [place] [address] [place] Sodium [Moles/Vol] 135 mmol/L Low 136-144 [facility] Comment on above: Order Comment: Geraldo elida Type: BLOOD SPECIMENOrdering Facility: [facility] Address: [address] [place] [address] Performed By: #### 2 4321-2 ####[facility] LABORATORYCLIA [id number] [place] [address] [place] Urea nitrogen [Mass/Vol] 8 mg/dL Normal 7-21 [facility] Comment on above: Order Comment: Speci men Type: BLOOD SPECIMENOrdering Facility: [facility] Address: [address] [place] [address] Performed By: #### 2 4321-2 ####[facility] LABORATORYCLIA [id number] [place] [address] [place] CBC panel Auto (Bld)on 05-18 Erythrocyte distribution width (RBC) [Ratio] 12.6 % Normal 11.5-15.0 [facility] Comment on above: Order Comment: Speci men Type: BLOOD SPECIMENOrdering Facility: [facility] Address: [address] [place] [address] Performed By: #### 5 8410-2 ####[facility] LABORATORYCLIA [id number] [address] [place] Hematocrit (Bld) [Volume fraction] 33.3 % Low 36.0-46.0 [facility] Comment on above: Order Comment: Speci men Type: BLOOD SPECIMENOrdering Facility: [facility] Address: [address] [place] [address] Performed By: #### 5 8410-2 ####[facility] LABORATORYCLIA [id number] [place] [address] [place] Hemoglobin (Bld) [Mass/Vol] 11.2 g/dL Low 11.5-15.5 [facility] Comment on above: Order Comment: Speci men Type: BLOOD SPECIMENOrdering Facility: [facility] Address: [address] [place] [address] Performed By: #### 5 8410-2 ####[facility] LABORATORYCLIA [id number] [place] [address] [place] MCH (RBC) [Entitic mass] 30.5 pg Normal 26.0-34.0 [facility] Comment on above: Order Comment: Speci men Type: BLOOD SPECIMENOrdering Facility: [facility] Address: [address] [place] [address] Performed By: #### 5 8410-2 ####[facility] LABORATORYCLIA [id number] [place] [address] [place] MCHC (RBC) [Mass/Vol] 33.6 g/dL Normal 30.5-36.0 [facility] Comment on above: Order Comment: Speci men Type: BLOOD SPECIMENOrdering Facility: [facility] Address: [address] [place] [address] Performed By: #### 5 8410-2 ####[facility] LABORATORYCLIA [id number] [place] [address] [place] MCV (RBC) [Entitic vol] 90.7 fL Normal 80.0-100.0 [facility] Comment on above: Order Comment: Speci men Type: BLOOD SPECIMENOrdering Facility: [facility] Address: [address] [place] [address] Performed By: #### 5 8410-2 ####[facility] LABORATORYCLIA [id number] [place] [address] [place] Nucleated RBC (Bld) [#/Vol] 10*3/uL Normal <0.01 [facility] Comment on above: Order Comment: Speci men Type: BLOOD SPECIMENOrdering Facility: [facility] Address: [address] [place] [address] Performed By: #### 5 8410-2 ####[facility] LABORATORYCLIA [id number] [place] [address] [place] Platelet mean volume (Bld) [Entitic vol] 11.4 fL Normal 9.0-12.7 [facility] Comment on above: Order Comment: Speci men Type: BLOOD SPECIMENOrdering Facility: [facility] Address: [address] [place] [address] Performed By: #### 5 8410-2 ####[facility] LABORATORYCLIA [id number] [address] [place] Platelets (Bld) [#/Vol] 150 10*3/uL Normal 150-400 [facility] Comment on above: Order Comment: Speci men Type: BLOOD SPECIMENOrdering Facility: [facility] Address: [address] [place] [address] Performed By: #### 5 8410-2 ####[facility] LABORATORYCLIA [id number] [place] [address] [place] RBC (Bld) [#/Vol] 3.67 10*6/uL Low 3.90-5.20 [facility] Comment on above: Order Comment: Speci men Type: BLOOD SPECIMENOrdering Facility: [facility] Address: [address] [place] [address] Performed By: #### 5 8410-2 ####[facility] LABORATORYCLIA [id number] [place] [address] [place] WBC (Bld) [#/Vol] 3.57 10*3/uL Low 3.70-11.00 [facility] Comment on above: Order Comment: Speci men Type: BLOOD SPECIMENOrdering Facility: [facility] Address: [address] [place] [address] Performed By: #### 5 8410-2 ####[facility] LABORATORYCLIA [id number] [place] [id number] [place] NURSING PROGon 05-19-2023 NURSING PROG Normal [facility] NURSING PROG Normal [facility] NURSING PROG Normal [facility] NUTRITIONon 05-19-2023 NUTRITION Normal [facility] Urinalysis complete panel (U )on 05-19-2023 Bacteria LM.HPF (Urine sed) [#/Area] Few Abnormal None Seen [facility] Comment on above: Order Comment: Speci men Type: URINE SPECIMENOrdering Facility: [facility] Address: [address] [place] [address] Performed By: #### 2 4356-8 ####[facility] LABORATORYCLIA [id number] [place] [address] [place] Bilirubin Ql (U) Negative Normal Negative [facility] Comment on above: Order Comment: Speci men Type: URINE SPECIMENOrdering Facility: [facility] Address: [address] [place] [address] Performed By: #### 2 4356-8 ####[facility] LABORATORYCLIA [id number] [place] [address] [place] Clarity (Unsp spec) Turbid Abnormal Clear [facility] Comment on above: Order Comment: Speci men Type: URINE SPECIMENOrdering Facility: [facility] Address: [address] [place] [address] Performed By: #### 2 4356-8 ####[facility] LABORATORYCLIA [id number] [place] [address] [place] Color (U) Yellow Normal Yellow [facility] Comment on above: Order Comment: Speci men Type: URINE SPECIMENOrdering Facility: [facility] Address: [address] [place] [address] Performed By: #### 2 4356-8 ####[facility] LABORATORYCLIA [id number] [place] [address] [place] Epithelial cells LM.HPF (Urine sed) [#/Area] Moderate Normal [facility] Comment on above: Order Comment: Speci men Type: URINE SPECIMENOrdering Facility: [facility] Address: [address] [place] [address] Performed By: #### 2 4356-8 ####[facility] LABORATORYCLIA [id number] [place] [address] [place] [facility] Glucose Test strip (U) [Mass/Vol] Negative Normal Trace, Negative [facility] Comment on above: Order Comment: Speci men Type: URINE SPECIMENOrdering Facility: [facility] Address: [address] [place] [address] Performed By: #### 2 4356-8 ####[facility] LABORATORYCLIA [id number] [place] [id number] [place] Hemoglobin Ql (U) Trace Normal Negative, Trace [facility] Comment on above: Order Comment: Speci men Type: URINE SPECIMENOrdering Facility: [facility] Address: [address] [place] [address] Performed By: #### 2 4356-8 ####[facility] LABORATORYCLIA [id number] [place] [address] [place] Ketones Ql (U) 2+ Abnormal Negative, Trace [facility] Comment on above: Order Comment: Speci men Type: URINE SPECIMENOrdering Facility: [facility] Address: [address] [place] [address] Performed By: #### 2 4356-8 ####[facility] LABORATORYCLIA [id number] [place] [address] [place] Leukocyte esterase Test strip Ql (U) 500 Patito/uL Abnormal Negative, 25 Patito/uL [facility] Comment on above: Order Comment: Speci men Type: URINE SPECIMENOrdering Facility: [facility] Address: [address] [place] [address] Performed By: #### 2 4356-8 ####[facility] LABORATORYCLIA [id number] [place] [address] [place] Nitrite Ql (U) Negative Normal Negative [facility] Comment on above: Order Comment: Speci men Type: URINE SPECIMENOrdering Facility: [facility] Address: [address] [place] [address] Performed By: #### 2 4356-8 ####[facility] LABORATORYCLIA [id number] [place] [address] [place] pH (U) 6.0 [pH] Normal 5.0-8.0 [facility] Comment on above: Order Comment: Speci men Type: URINE SPECIMENOrdering Facility: [facility] Address: [address] [place] [address] Performed By: #### 2 4356-8 ####[facility] LABORATORYCLIA [id number] [place] [address] [place] Protein (U) [Mass/Vol] Negative Normal Trace, Negative [facility] Comment on above: Order Comment: Speci men Type: URINE SPECIMENOrdering Facility: [facility] Address: [address] [place] [address] Performed By: #### 2 4356-8 ####[facility] LABORATORYCLIA [id number] [place] [address] [place] RBC LM.HPF (Urine sed) [#/Area] /[HPF] Abnormal 0-3 /HPF [facility] Comment on above: Order Comment: Speci men Type: URINE SPECIMENOrdering Facility: [facility] Address: [address] [place] [address] Performed By: #### 2 4356-8 ####[facility] LABORATORYCLIA [id number] [address] Specific gravity (U) [Rel density] 1.012 Normal 1.005-1.030 [facility] Comment on above: Order Comment: Speci men Type: URINE SPECIMENOrdering Facility: [facility] Address: [address] [place] [address] Performed By: #### 2 4356-8 ####[facility] LABORATORYCLIA [id number] [address] [place] Urobilinogen Ql (U) Normal Normal Normal [facility] Comment on above: Order Comment: Speci men Type: URINE SPECIMENOrdering Facility: [facility] Address: [address] [place] [address] Performed By: #### 2 4356-8 ####[facility] LABORATORYCLIA [id number] [address] [place] WBC LM.HPF (Urine sed) [#/Area] /[HPF] Abnormal 0-5 /HPF [facility] Comment on above: Order Comment: Speci men Type: URINE SPECIMENOrdering Facility: [facility] Address: [address] [place] [address] Performed By: #### 2 4356-8 ####[facility] LABORATORYCLIA [id number] [address] .Interpretation:on 4 HCV Ab IA Ql Comment Invalid Interpretation Code [facility] Comment on above: Result Comment: Not infected with HCV unless early or acute infection issuspected (which may be delayed in an immunocompromisedindividual), or other evidence exists to indicate HCV infection.Performed at: [facility] [place] [address] [id number] PhD Cami Neri Performed By: #### 9 [id number], 41539631, 7906306, 3279832, [id number], 4903819, 5714716371, 4030624, 55505126 ####[facility] [address] [place] [address] 25(OH)D3 Alka-Wing 2023 25-hydroxyvitamin D3 [Mass/Vol] 36.1 ng/mL Normal 31.0-80.0 [facility] Comment on above: Order Comment: Speci men Type: BLOOD SPECIMENOrdering Facility: [facility] Address: [address] [place] [address] Performed By: #### 1 989-3 ####[facility] LABCLIA [id number] [place] [address] [place] [address] [facility] Acute Hepatitis A B C Panelo n 05-18-2023 HAV IgM IA Ql Negative Invalid Interpretation Code Negative [facility] Comment on above: Performed By: #### 9 [id number], 03225767, 6859338, 1325870, 6115402999, 3231227, 1058978752, 3216541, 95515671 ####[facility] [address] [place] [address] HBV core IgM IA Ql Negative Invalid Interpretation Code Negative [facility] Comment on above: Performed By: #### 9 [id number], 66474750, 3379747, 7480495, 4479070903, 7365892, 5532564919, 2110994, 15391905 ####[facility] [address] [place] [address] HBV surface Ag IA Ql Negative Invalid Interpretation Code Negative [facility] Comment on above: Performed By: #### 9 13734796, 55779045, 1518955, 7349510, 9457617574, 4607223, 4488500313, 7552855, 42958346 ####[facility] [address] [place] [address] HCV IgG IA Ql Non-Reactive Invalid Interpretation Code Non Reactive [facility] Comment on above: Result Comment: Perf ormed at: [facility] [address] [place], [place] [id number] PhD Cami Neri Performed By: #### 9 52012945, 67369421, 1553718, 0556492, 0247438691, 5668211, 2886542026, 1099774, 13880217 ####[facility] [address] [place] [address] CBC W Auto Differential pane l (Bld)on 05-18-2023 Basophils (Bld) [#/Vol] 0.03 10*3/uL Normal <0.11 [facility] Comment on above: Order Comment: Speci men Type: BLOOD SPECIMENOrdering Facility: [facility] Address: [address] [place] [address] Performed By: #### 5 7021-8 ####[facility] LABORATORYCLIA [id number] [place] [address] [place] Basophils/100 WBC (Bld) 0.6 % Normal [facility] Comment on above: Order Comment: Speci men Type: BLOOD SPECIMENOrdering Facility: [facility] Address: [address] [place] [address] Performed By: #### 5 7021-8 ####[facility] LABORATORYCLIA [id number] [place] [address] [place] Differential cell count method Nom (Bld) Auto Normal [facility] Comment on above: Order Comment: Speci men Type: BLOOD SPECIMENOrdering Facility: [facility] Address: [address] [place] [address] Performed By: #### 5 7021-8 ####[facility] LABORATORYCLIA [id number] [place] [address] [place] Eosinophils (Bld) [#/Vol] 0.06 10*3/uL Normal <0.46 [facility] Comment on above: Order Comment: Speci men Type: BLOOD SPECIMENOrdering Facility: [facility] Address: [address] [place] [address] Performed By: #### 5 7021-8 ####[facility] LABORATORYCLIA [id number] [place] [address] [place] Eosinophils/100 WBC (Bld) 1.3 % Normal [facility] Comment on above: Order Comment: Speci men Type: BLOOD SPECIMENOrdering Facility: [facility] Address: [address] [place] [address] Performed By: #### 5 7021-8 ####[facility] LABORATORYCLIA [id number] [place] [address] [place] Erythrocyte distribution width (RBC) [Ratio] 13.1 % Normal 11.5-15.0 [facility] Comment on above: Order Comment: Speci men Type: BLOOD SPECIMENOrdering Facility: [facility] Address: [address] [place] [address] Performed By: #### 5 7021-8 ####[facility] LABORATORYCLIA [id number] [place] [address] [place] Hematocrit (Bld) [Volume fraction] 43.5 % Normal 36.0-46.0 [facility] Comment on above: Order Comment: Speci men Type: BLOOD SPECIMENOrdering Facility: [facility] Address: [address] [place] [address] Performed By: #### 5 7021-8 ####[facility] LABORATORYCLIA [id number] [address] [place] Hemoglobin (Bld) [Mass/Vol] 14.8 g/dL Normal 11.5-15.5 [facility] Comment on above: Order Comment: Speci men Type: BLOOD SPECIMENOrdering Facility: [facility] Address: [address] [place] [address] Performed By: #### 5 7021-8 ####[facility] LABORATORYCLIA [id number] [address] [place] Immature granulocytes (Bld) [#/Vol] 10*3/uL Normal <0.10 [facility] Comment on above: Order Comment: Speci men Type: BLOOD SPECIMENOrdering Facility: [facility] Address: [address] [place] [address] Performed By: #### 5 7021-8 ####[facility] LABORATORYCLIA [id number] [place] [address] [place] Immature granulocytes/100 WBC (Bld) 0.2 % Normal [facility] Comment on above: Order Comment: Speci men Type: BLOOD SPECIMENOrdering Facility: [facility] Address: [address] [place] [address] Performed By: #### 5 7021-8 ####[facility] LABORATORYCLIA [id number] [place] [address] [place] Lymphocytes (Bld) [#/Vol] 1.27 10*3/uL Normal 1.00-4.00 [facility] Comment on above: Order Comment: Speci men Type: BLOOD SPECIMENOrdering Facility: [facility] Address: [address] [place] [address] Performed By: #### 5 7021-8 ####[facility] LABORATORYCLIA [id number] [address] [place] Lymphocytes/100 WBC (Bld) 26.5 % Normal [facility] Comment on above: Order Comment: Speci men Type: BLOOD SPECIMENOrdering Facility: [facility] Address: [address] [place] [address] Performed By: #### 5 7021-8 ####[facility] LABORATORYCLIA [id number] [place] [address] [place] MCH (RBC) [Entitic mass] 30.4 pg Normal 26.0-34.0 [facility] Comment on above: Order Comment: Speci men Type: BLOOD SPECIMENOrdering Facility: [facility] Address: [address] [place] [address] Performed By: #### 5 7021-8 ####[facility] LABORATORYCLIA [id number] [address] [place] MCHC (RBC) [Mass/Vol] 34.0 g/dL Normal 30.5-36.0 [facility] Comment on above: Order Comment: Speci men Type: BLOOD SPECIMENOrdering Facility: [facility] Address: [address] [place] [address] Performed By: #### 5 7021-8 ####[facility] LABORATORYCLIA [id number] [place] [address] [place] MCV (RBC) [Entitic vol] 89.3 fL Normal 80.0-100.0 [facility] Comment on above: Order Comment: Speci men Type: BLOOD SPECIMENOrdering Facility: [facility] Address: [address] [place] [address] Performed By: #### 5 7021-8 ####[facility] LABORATORYCLIA [id number] [place] [address] [place] Monocytes (Bld) [#/Vol] 0.26 10*3/uL Normal <0.87 [facility] Comment on above: Order Comment: Speci men Type: BLOOD SPECIMENOrdering Facility: [facility] Address: [address] [place] [address] Performed By: #### 5 7021-8 ####[facility] LABORATORYCLIA [id number] [place] [address] [place] Monocytes/100 WBC (Bld) 5.4 % Normal [facility] Comment on above: Order Comment: Speci men Type: BLOOD SPECIMENOrdering Facility: [facility] Address: [address] [place] [address] Performed By: #### 5 7021-8 ####[facility] LABORATORYCLIA [id number] [place] [address] [place] Neutrophils (Bld) [#/Vol] 3.16 10*3/uL Normal 1.45-7.50 [facility] Comment on above: Order Comment: Speci men Type: BLOOD SPECIMENOrdering Facility: [facility] Address: [address] [place] [address] Performed By: #### 5 7021-8 ####[facility] LABORATORYCLIA [id number] [place] [address] [place] Neutrophils/100 WBC (Bld) 66.0 % Normal [facility] Comment on above: Order Comment: Speci men Type: BLOOD SPECIMENOrdering Facility: [facility] Address: [address] [place] [address] Performed By: #### 5 7021-8 ####[facility] LABORATORYCLIA [id number] [place] [address] [place] Nucleated RBC (Bld) [#/Vol] 10*3/uL Normal <0.01 [facility] Comment on above: Order Comment: Speci men Type: BLOOD SPECIMENOrdering Facility: [facility] Address: [address] [place] [address] Performed By: #### 5 7021-8 ####[facility] LABORATORYCLIA [id number] [place] [address] [place] Nucleated RBC/100 WBC (Bld) [Ratio] 0.0 /100 WBC Normal [facility] Comment on above: Order Comment: Speci men Type: BLOOD SPECIMENOrdering Facility: [facility] Address: [address] [place] [address] Performed By: #### 5 7021-8 ####[facility] LABORATORYCLIA [id number] [place] [address] [place] Platelet mean volume (Bld) [Entitic vol] 11.8 fL Normal 9.0-12.7 [facility] Comment on above: Order Comment: Speci men Type: BLOOD SPECIMENOrdering Facility: [facility] Address: [address] [place] [address] Performed By: #### 5 7021-8 ####[facility] LABORATORYCLIA [id number] [place] [address] [place] Platelets (Bld) [#/Vol] 226 10*3/uL Normal 150-400 [facility] Comment on above: Order Comment: Speci men Type: BLOOD SPECIMENOrdering Facility: [facility] Address: [address] [place] [address] Performed By: #### 5 7021-8 ####[facility] LABORATORYCLIA [id number] [place] [address] [place] RBC (Bld) [#/Vol] 4.87 10*6/uL Normal 3.90-5.20 [facility] Comment on above: Order Comment: Speci men Type: BLOOD SPECIMENOrdering Facility: [facility] Address: [address] [place] [address] Performed By: #### 5 7021-8 ####[facility] LABORATORYCLIA [id number] [place] [address] [place] WBC (Bld) [#/Vol] 4.79 10*3/uL Normal 3.70-11.00 [facility] Comment on above: Order Comment: Speci men Type: BLOOD SPECIMENOrdering Facility: [facility] Address: [address] [place] [address] Performed By: #### 5 7021-8 ####[facility] LABORATORYCLIA [id number] [place] [address] [place] CNPNon 05-18-2023 CNPN Normal [facility] CONSULTon 05-18-2023 CONSULT Normal [facility] COPPER BLOODon 05-18-2023 Copper [Mass/Vol] 91 ug/dL Normal 80-155 [facility] Comment on above: Order Comment: Speci men Type: BLOOD SPECIMENOrdering Facility: [facility] Address: [address] [place] [address] Result Comment: This test was developed and its performance characteristics determined by [facility]'s Lucie Faustino [facility] Pathology and Laboratory Medicine [place] (-PLMI). It has not been cleared or approved by the FDA. [facility] is regulated under CLIA as qualified to perform high-complexity testing. This test is used for clinical purposes. It should not be regarded as investigational or for research. Performed By: #### C OPPER ####[facility] LABCLIA [id number] [place] [address] [place] Comprehensive metabolic 2000 panelon 05-18-2023 Albumin [Mass/Vol] 4.7 g/dL Normal 3.9-4.9 [facility] Comment on above: Order Comment: Speci men Type: BLOOD SPECIMENOrdering Facility: [facility] Address: [address] [place] [address] Performed By: #### 3 040-3, , ####[facility] LABORATORYCLIA [id number] [place] [address] [place] ALP [Catalytic activity/Vol] 76 U/L Normal 34-123 [facility] Comment on above: Order Comment: Speci men Type: BLOOD SPECIMENOrdering Facility: [facility] Address: [address] [place] [address] Performed By: #### 3 040-3, , ####[facility] LABORATORYCLIA [id number] [place] [address] [place] ALT [Catalytic activity/Vol] 19 U/L Normal 7-38 [facility] Comment on above: Order Comment: Speci men Type: BLOOD SPECIMENOrdering Facility: [facility] Address: [address] [place] [address] Performed By: #### 3 040-3, , ####[facility] LABORATORYCLIA [id number] [place] [address] [place] Anion gap [Moles/Vol] 14 mmol/L Normal 9-18 [facility] Comment on above: Order Comment: Speci men Type: BLOOD SPECIMENOrdering Facility: [facility] Address: [address] [place] [address] Performed By: #### 3 040-3, , ####[facility] LABORATORYCLIA [id number] [place] [address] [place] AST [Catalytic activity/Vol] 42 U/L High 13-35 [facility] Comment on above: Order Comment: Speci men Type: BLOOD SPECIMENOrdering Facility: [facility] Address: [address] [place] [address] Performed By: #### 3 040-3, , ####[facility] LABORATORYCLIA [id number] [place] [address] [place] Bilirubin [Mass/Vol] 0.4 mg/dL Normal 0.2-1.3 [facility] Comment on above: Order Comment: Speci men Type: BLOOD SPECIMENOrdering Facility: [facility] Address: [address] [place] [address] Performed By: #### 3 040-3, , ####[facility] LABORATORYCLIA [id number] [place] [address] [place] Calcium [Mass/Vol] 9.2 mg/dL Normal 8.5-10.2 [facility] Comment on above: Order Comment: Speci men Type: BLOOD SPECIMENOrdering Facility: [facility] Address: [address] [place] [address] Performed By: #### 3 040-3, , ####[facility] LABORATORYCLIA [id number] [place] [address] [place] Chloride [Moles/Vol] 106 mmol/L High 97-105 [facility] Comment on above: Order Comment: Speci men Type: BLOOD SPECIMENOrdering Facility: [facility] Address: [address] [place] [address] Performed By: #### 3 040-3, , ####[facility] LABORATORYCLIA [id number] [place] [address] [place] CO2 [Moles/Vol] 21 mmol/L Low 22-30 [facility] Comment on above: Order Comment: Speci men Type: BLOOD SPECIMENOrdering Facility: [facility] Address: [address] [place] [address] Performed By: #### 3 040-3, , ####[facility] LABORATORYCLIA [id number] [place] [address] [place] Creatinine [Mass/Vol] 0.82 mg/dL Normal 0.58-0.96 [facility] Comment on above: Order Comment: Speci men Type: BLOOD SPECIMENOrdering Facility: [facility] Address: [address] [place] [address] Performed By: #### 3 040-3, , ####[facility] LABORATORYCLIA [id number] [place] [address] [place] Creatinine and Glomerular filtration rate.predicted panel (S/P/Bld) 96 mL/min/1.73m??? Normal >=60 [facility] Comment on above: Order Comment: Geraldo elida Type: BLOOD SPECIMENOrdering Facility: [facility] Address: [address] [place] [address] Result Comment: Jessica mated Glomerular Filtration Rate [...] actual GFR. Performed By: #### 3 040-3, 36198-2, ####[facility] LABORATORYCLIA [id number] [place] [address] [place] Glucose [Mass/Vol] 79 mg/dL Normal 74-99 [facility] Comment on above: Order Comment: Geraldo marrero Type: BLOOD SPECIMENOrdering Facility: [facility] Address: [address] [place] [address] Result Comment: The [place] Diabetes Association (ADA) provides guidance for cutoff [...] Standards of Medical Care in Diabetes 2016, [place] Diabetes Association. Diabetes Care. 2016.39(Suppl 1). Performed By: #### 3 040-3, 20569-6, 49744-5 ####[facility] LABORATORYCLIA [id number] [place] [address] [place] Potassium [Moles/Vol] 4.3 mmol/L Normal 3.7-5.1 [facility] Comment on above: Order Comment: Speci men Type: BLOOD SPECIMENOrdering Facility: [facility] Address: [address] [place] [address] Performed By: #### 3 040-3, , ####[facility] LABORATORYCLIA [id number] [place] [address] [place] Protein [Mass/Vol] 7.4 g/dL Normal 6.3-8.0 [facility] Comment on above: Order Comment: Speci men Type: BLOOD SPECIMENOrdering Facility: [facility] Address: [address] [place] [address] Performed By: #### 3 040-3, , ####[facility] LABORATORYCLIA [id number] [place] [address] [place] Sodium [Moles/Vol] 141 mmol/L Normal 136-144 [facility] Comment on above: Order Comment: Speci men Type: BLOOD SPECIMENOrdering Facility: [facility] Address: [address] [place] [address] Performed By: #### 3 040-3, , ####[facility] LABORATORYCLIA [id number] [place] [address] [place] Urea nitrogen [Mass/Vol] 7 mg/dL Normal 7-21 [facility] Comment on above: Order Comment: Speci men Type: BLOOD SPECIMENOrdering Facility: [facility] Address: [address] [place] [address] Performed By: #### 3 040-3, , ####[facility] LABORATORYCLIA [id number] [place] [address] [place] Copper Lvlon 05-18-2023 Copper [Mass/Vol] 90 microgram/dL Invalid Interpretation Code 80-158 [facility] Comment on above: Result Comment: This test was developed and its performance characteristicsdetermined by [facility]. It has not been cleared or approvedby the Food and Drug Administration.Detection Limit = 5Performed at: [facility] [id number] [place], [place] [id number] MD Jhonathan Dai Performed By: #### 9 [id number], 93052279, 1981909, 4805224, [id number], 3407122, 6751418649, 3062765, 94407887 ####[facility] [address] [place] [address] ED PROV NOTEon 05-18-2023 ED PROV NOTE Normal [facility] Folate SerPl-mCncon 05-18-19 24 Folate [Mass/Vol] 10.3 ng/mL Normal >4.7 [facility] Comment on above: Order Comment: Speci men Type: BLOOD SPECIMENOrdering Facility: [facility] Address: [address] [place] [address] Performed By: #### 1 4338-8, 3034-6, 2284-8, 09726-5, 2132-9 ####[facility] LABCLIA [id number] [place] [address] [place] HIV Screen 4th Generation wR fxon 05-18-2023 HIV 1+2 Ab+HIV1 p24 Ag IA Ql Non-Reactive Invalid Interpretation Code Non Reactive [facility] Comment on above: Result Comment: HIV NegativeHIV-1/HIV-2 antibodies and HIV-1 p24 antigen were NOT detected.There is no laboratory evidence of HIV infection.Performed at: [facility] [address] [place], [place] [id number] PhD Cami Neri Performed By: #### 9 [id number], 22270149, 9430428, 5803799, [id number], 3110262, [id number], 0042507, [id number] ####[facility] [address] [place] [address] Iron and Iron binding capaci ty panelon 05-18-2023 Iron [Mass/Vol] 81 ug/dL Normal 41-186 [facility] Comment on above: Order Comment: Speci men Type: BLOOD SPECIMENOrdering Facility: [facility] Address: [address] [place] [address] Performed By: #### 1 4338-8, 3034-6, 2284-8, 79278-3, 2131-10 ####[facility] LABCLIA [id number] [place] [address] [place] Iron binding capacity [Mass/Vol] 292 ug/dL Normal 232-386 [facility] Comment on above: Order Comment: Speci men Type: BLOOD SPECIMENOrdering Facility: [facility] Address: [address] [place] [address] Performed By: #### 1 4338-8, 3034-6, 4-8, 90434-0, 2131-10 ####[facility] LABCLIA [id number] [place] [address] [place] Iron/TIBC [Molar ratio] 27.7 % Normal 15.0-57.0 [facility] Comment on above: Order Comment: Speci men Type: BLOOD SPECIMENOrdering Facility: [facility] Address: [address] [place] [address] Performed By: #### 1 4338-8, 3034-6, 2283-8, 52920-5, 2131-10 ####[facility]IA [id number] [place] [address] [place] Lipase SerPl-cCncon 05-18-19 24 Lipase [Catalytic activity/Vol] 37 U/L Normal 16-61 [facility] Comment on above: Order Comment: Speci men Type: BLOOD SPECIMENOrdering Facility: [facility] Address: [address] [place] [address] Performed By: #### 3 040-3, 31143-8, 93585-1 ####[facility]ORY[facility] [id number] [place] [address] [place] Magnesium SerPl-mCncon 05-17 Magnesium [Mass/Vol] 2.1 mg/dL Normal 1.7-2.3 [facility] Comment on above: Order Comment: Speci men Type: BLOOD SPECIMENOrdering Facility: [facility] Address: [address] [place] [address] Performed By: #### 3 040-3, 42414-2, 95298-7 ####[facility]ORYCLIA [id number] [place] [id number] [place] NURSING PROGon 05-18-2023 NURSING PROG Normal [facility] Prealb SerPl-mCncon 05-18-19 24 Prealbumin [Mass/Vol] 13 mg/dL Low 17-36 [facility] Comment on above: Order Comment: Speci men Type: BLOOD SPECIMENOrdering Facility: [facility] Address: [address] [place] [address] Performed By: #### 1 4338-8, 3034-6, 2284-8, 20449-1, 2-9 ####[facility] LABCLIA [id number] [place] [address] [place] Transferrin SerPl-mCncon Transferrin [Mass/Vol] 239 mg/dL Normal 200-360 [facility] Comment on above: Order Comment: Speci men Type: BLOOD SPECIMENOrdering Facility: [facility] Address: [address] [place] [address] Performed By: #### 1 4338-8, 3034-6, 2284-8, 84224-0, 2131-9 ####[facility] LABIA [id number] [place] [id number] [place] VITAMIN B1 PLASMAon 05-18-19 24 VITAMIN B1, PLASMA 5 nmol/L Normal 4-15 [facility] Comment on above: Order Comment: Speci men Type: BLOOD SPECIMENOrdering Facility: [facility] Address: [address] [place] [address] Result Comment: INTE RPRETIVE DATA: Vitamin B1, PlasmaThiamine (vitamin B1) is reported. However, thiamine diphosphate(TDP), the biologically active form of thiamine, is not found inmeasurable concentrations in plasma, and is best determined inwhole blood specimens. Plasma thiamine concentration reflectsrecent intake rather than body stores.This test was developed and its performance characteristicsdetermined by [facility]. It has not been cleared orapproved by the [place] Food and Drug Administration. This test wasperformed in a CLIA certified laboratory and is intended forclinical purposes.Performed By: [facility] [address] [place] [address] 74[address]Hwrmoqwlpd Director: Kirt Murphy MD, PhDCLIA Number: [id number] Performed By: #### P VITB1 ####[facility]ARE[facility] [id number] [place] [address] VITAMIN B6/PYRIDOXINon 05-17 VITAMIN B6 39.1 nmol/L Normal 20.0-125.0 [facility] Comment on above: Order Comment: Speci men Type: BLOOD SPECIMENOrdering Facility: [facility] Address: [address] [place] [address] Result Comment: INTE RPRETIVE INFORMATION: Vitamin B6 (Pyridoxal 5-Phosphate)Pyridoxal 5'-phosphate measured in a specimen collected followingan 8-hour or overnight fast accurately indicates vitamin E8nvnaybgryeb status. Non-fasting specimen concentration reflectsrecent vitamin intake.This test was developed and its performance characteristicsdetermined by [facility]. It has not been cleared orapproved by the [place] Food and Drug Administration. This test wasperformed in a CLIA certified laboratory and is intended forclinical purposes.Performed By: [id number] [place] [id number] Director: Kirt Murphy MD, PhDCLIA Number: [id number] Performed By: #### V ITB6 ####[facility] LABORATORIESCLIA [id number] [place] [address] Vit A SerPl-mCncon 4 Retinol [Mass/Vol] 0.17 mg/L Low 0.30-1.20 [facility] Comment on above: Order Comment: Speci men Type: BLOOD SPECIMENOrdering Facility: [facility] Address: [address] [place] [address] Result Comment: This test was developed and its performance characteristics determined by [facility] [place] ([facility]). It has not been cleared or approved by the FDA. [facility] is regulated under CLIA as qualified to perform high-complexity testing. This test is used for clinical purposes. It should not be regarded as investigational or for research. Performed By: #### 2 923-1 ####[facility] LABCLIA [id number] [place] [id number] [place] Vit B12 SerPl-mCncon 024 Cobalamin (Vitamin B12) [Mass/Vol] 1155 pg/mL Normal 232-1245 [facility] Comment on above: Order Comment: Speci men Type: BLOOD SPECIMENOrdering Facility: [facility] Address: [address] [place] [address] Performed By: #### 1 4338-8, 3034-6, 2284-8, 57594-7, 2132-9 ####[facility] LABCLIA [id number] [place] [id number] [place] ZINC, WHOLE BLOODon 05-18-19 24 ZINC, WHOLE BLOOD 670.6 ug/dL Normal 440.0-860.0 [facility] Comment on above: Order Comment: Speci elida Type: BLOOD SPECIMENOrdering Facility: [facility] Address: [address] [place] [address] Result Comment: INTE RPRETIVE DATA: Zinc Quantitative, Whole BloodElevated results may be due to skin or collection-relatedcontamination, including the use of a noncertified metal-freecollection/transport tube. If contamination concerns exist due toelevated levels of blood zinc, confirmation with a second specimencollected in a certified metal-free tube is recommended.Zinc concentration in blood has not been shown to changesignificantly in deficiency or with supplementation.This test was developed and its performance characteristicsdetermined by [facility]. It has not been cleared orapproved by the [place] Food and Drug Administration. This test wasperformed in a CLIA certified laboratory and is intended forclinical purposes.Performed By: [facility] [place] [address]Hzeqnckhey Director: Kirt Murphy MD, PhDCLIA Number: [id number] Performed By: #### Z INCWB ####[facility]OR[facility]IESCLIA [id number] [place] [address] CBC w/ Auto Diffon 4 Basophils/100 WBC (Bld) 0.7 % Normal 0.0-2.0 [facility] Comment on above: Performed By: #### 2 414586, 3879501, 8044255, 32698426 ####[address] [address] Basophils/Leukocyte s Auto (Bld) [Pure # fraction] 0.0 E9/L Normal 0.0-0.2 [facility] Comment on above: Performed By: #### 2 960676, 2721093, 2375153, 79623389 ####[address] [address] Eosinophils (Bld) [#/Vol] 0.1 E9/L Normal 0.0-0.5 [facility] Comment on above: Performed By: #### 2 626054, 1328316, 8111089, 07433466 ####[address] [address] Eosinophils/100 WBC (Bld) 1.9 % Normal 0.0-8.0 [facility] Comment on above: Performed By: #### 2 726655, 6975055, 2845932, 62325456 ####[address] [address] Erythrocyte distribution width (RBC) [Ratio] 14.1 % Normal 10.9-14.2 [facility] Comment on above: Performed By: #### 2 929358, 4589685, 9047624, 34375532 ####[address] [address] Hematocrit (Bld) [Volume fraction] 41.1 % Normal 34.0-46.0 [facility] Comment on above: Performed By: #### 2 155590, 3927155, 3403807, 01893911 ####[address] [address] Hemoglobin (Bld) [Mass/Vol] 13.7 g/dL Normal 12.0-16.0 [facility] Comment on above: Performed By: #### 2 069468, 8498396, 3769153, 49507415 ####[address] [address] Lymphocytes (Bld) [#/Vol] 1.4 E9/L Normal 1.0-4.0 [facility] Comment on above: Performed By: #### 2 858325, 3366593, 2184244, 70517084 ####[address] [address] Lymphocytes/100 WBC (Bld) 38.9 % Normal 14.0-50.0 [facility] Comment on above: Performed By: #### 2 562700, 9354478, 0841201, 87151322 ####[address] [address] MCH (RBC) [Entitic mass] 29.8 pg Normal 27.0-34.0 [facility] Comment on above: Performed By: #### 2 200424, 0141700, 3268182, 22499662 ####[address] [address] MCHC (RBC) [Mass/Vol] 33.3 g/dL Normal 31.4-36.0 [facility] Comment on above: Performed By: #### 2 312878, 9334235, 4253816, 80115799 ####[address] [address] MCV (RBC) [Entitic vol] 89.5 fL Normal 80.0-100.0 [facility] Comment on above: Performed By: #### 2 290049, 9513254, 0539166, 06635047 ####[place] [address] [address] Monocytes (Bld) [#/Vol] 0.2 E9/L Normal 0.2-1.0 [facility] Comment on above: Performed By: #### 2 884427, 5576556, 2022265, 93636478 ####[address] [address] Neutrophils (Bld) [#/Vol] 1.9 E9/L Low 2.0-7.5 [facility] Comment on above: Performed By: #### 2 739564, 7157492, 6661415, 29007251 ####[address] [address] Neutrophils/100 WBC (Bld) 52.6 % Normal 36.0-75.0 [facility] Comment on above: Performed By: #### 2 737048, 3903636, 3870440, 85742275 ####[address] [address] Platelet 195.0 E9/L Normal 150.0-500.0 [facility] Comment on above: Performed By: #### 2 989186, 0889300, 2610515, 44259903 ####[address] [address] Platelet mean volume (Bld) [Entitic vol] 9.0 fL Normal 6.4-10.8 [facility] Comment on above: Performed By: #### 2 921083, 0034209, 0369364, 44164098 ####[address] [address] RBC (Bld) [#/Vol] 4.6 E12/L Normal 4.3-5.9 [facility] Comment on above: Performed By: #### 2 779211, 5002931, 3829068, 07076943 ####[address] [address] WBC corrected for nucl RBC Auto (Bld) [#/Vol] 3.6 E9/L Low 4.0-11.0 [facility] Comment on above: Performed By: #### 2 008888, 5560232, 1873744, 52042746 ####[facility] [address] [place] [address] CHEMISTRYOrdered By: SYSTEM SYSTEM on 05-17-2023 Albumin [...] 05-17-2023 Albumin [Mass/Vol] 4.5 g/dL Normal 3.3-5.0 [facility] Comment on above: Performed By: #### 2 640527, 6915467, 2886431, 43487345 ####[facility] [address] [place] [address] Albumin/Globulin (S) [Mass conc ratio] 1.6 Normal 1.1-2.2 [facility] Comment on above: Performed By: #### 2 836537, 6894401, 3280788, 29796699 ####[facility] [address] [place] [address] ALP [Catalytic activity/Vol] 61 Int._Unit/L Normal 21-98 [facility] Comment on above: Performed By: #### 2 874816, 0663995, 7259076, 59477190 ####[facility] [address] [place] [address] ALT No additional P-5'-P [Catalytic activity/Vol] 17 Int._Unit/L Normal 6-46 [facility] Comment on above: Performed By: #### 2 838977, 5065387, 5468362, 27041727 ####[facility] [address] [place] [address] Anion gap [Moles/Vol] 12 mmol/L Normal 6-16 [facility] Comment on above: Performed By: #### 2 933861, 7259143, 0509517, 63905872 ####[facility] [address] [place] [address] AST [Catalytic activity/Vol] 30 Int._Unit/L Normal 5-43 [facility] Comment on above: Performed By: #### 2 906988, 2792268, 0191263, 62420793 ####[facility] [address] [place] [address] Bilirubin [Mass/Vol] 0.5 mg/dL Normal 0.0-1.1 [facility] Comment on above: Performed By: #### 2 360469, 1069757, 9096754, 54414096 ####[facility] [address] [place] [address] Calcium [Mass/Vol] 9.2 mg/dL Normal 8.9-11.1 [facility] Comment on above: Performed By: #### 2 830780, 5404289, 5544865, 05423768 ####[facility] [address] [place] [address] Chloride [Moles/Vol] 106 mmol/L Normal 101-111 [facility] Comment on above: Performed By: #### 2 417784, 6892364, 1552912, 83677317 ####[facility] [address] [place] [address] CO2 [Moles/Vol] 24 mmol/L Normal 21-31 [facility] Comment on above: Performed By: #### 2 514288, 6910865, 8071384, 87596773 ####[facility] [address] [place] [address] Creatinine [Mass/Vol] 0.9 mg/dL Normal 0.5-1.3 [facility] Comment on above: Performed By: #### 2 493884, 8207629, 2548717, 49484613 ####[facility] [address] [place] [address] Globulin (S) [Mass/Vol] 2.9 g/dL Normal 1.4-4.0 [facility] Comment on above: Performed By: #### 2 017006, 1307099, 7796839, 28100126 ####[facility] [address] [place] [address] [place] [address] Glucose [Mass/Vol] 80 mg/dL Normal 55-199 [facility] Comment on above: Performed By: #### 2 412824, 2971901, 6397560, 87445932 ####[facility] [address] [place] [address] Potassium [Moles/Vol] 3.8 mmol/L Normal 3.5-5.3 [facility] Comment on above: Performed By: #### 2 393356, 1437470, 0684101, 31779327 ####[facility] [address] [place] [address] Protein [Mass/Vol] 7.4 g/dL Normal 6.0-7.8 [facility] Comment on above: Performed By: #### 2 847456, 0451506, 6881774, 95715539 ####[address] [address] Sodium [Moles/Vol] 138 mmol/L Normal 135-145 [facility] Comment on above: Performed By: #### 2 724050, 7052942, 7460481, 87919571 ####[facility] [address] [place] [address] Urea nitrogen [Mass/Vol] 6 mg/dL Normal 5-21 [facility] Comment on above: Performed By: #### 2 319308, 9798325, 8932924, 93506377 ####[facility] [address] [place] [address] Urea nitrogen/Creatinine [Mass ratio] 7 No Units Low 10-20 [facility] Comment on above: Performed By: #### 2 398086, 5305960, 9533957, 71236629 ####[facility] [address] [place] [address] Consent for Treatmenton Consent for Treatment [id number] 906#1.00TIFF Normal [facility] Discharge Instructionson Discharge Instructions [id number] 524#1.00TIFF Normal [facility] ED Clinical Summaryon 2023 ED Clinical Summary Normal Kirsty ahumada [facility] ED Note-Physicianon 05-17-19 ED Note-Physician Normal [facility] Comment on above: Result Comment: Elec tronically Signed By: Tiffani Cunningham PA-C\.br\Date and Time Signed: 05/17/23 15:46 EDT\.br\Electronically Co-Signed By: Ashutosh Albright M.D.\.br\Date and Time Co-Signed: 05/17/23 17:49 EDT ED Patient Education Noteon 05-17-2023 ED Patient Education Note Normal [facility] ED Patient Summaryon ED Patient Summary Normal [facility] HEMATOLOGYOrdered By: SYSTEM SYSTEM on 05-17-2023 [...] 05-17-2023 Magnesium [Mass/Vol] 2.1 mg/dL Normal 1.3-2.4 [facility] Comment on above: Performed By: #### 2 380818, 6500555, 9871605, 37133880 ####[facility] [address] [place] [address] Population Healthon 05-17-19 24 Population Health Normal [facility] Pre-Arrival Noteon 4 Pre-Arrival Note Normal [facility] eGFRon 05-17-2023 eGFR 86 mL/min/1.73 m2 Normal >=59 [facility] Comment on above: Order Comment: Order added by Discern Expert. Performed By: #### 2 359399, 9956566, 1492649, 91622698 ####[facility] [address] [place] [address] BMPon 05-14-2023 Anion gap [Moles/Vol] 8 mmol/L Normal 6-16 [facility] Comment on above: Performed By: #### 9 24165835, 72759026, 5473329, 8192794, 4244869846, 8054573, 3169446373, 7911639, 35852252 ####[facility] [address] [place] [address] Calcium [Mass/Vol] 8.6 mg/dL Low 8.9-11.1 [facility] Comment on above: Performed By: #### 9 60296596, 33667891, 6229762, 1961163, 9898165653, 2135310, 3901451521, 0793450, 46562770 ####[facility] [address] [place] [address] Chloride [Moles/Vol] 110 mmol/L Normal 101-111 [facility] Comment on above: Performed By: #### 9 22067154, 90067476, 4414126, 4851348, 3677515974, 2447507, 4936288724, 0794206, 10413429 ####[facility] [address] [place] [address] CO2 [Moles/Vol] 26 mmol/L Normal 21-31 [facility] Comment on above: Performed By: #### 9 09111204, 73616163, 7175624, 3137678, 0501916064, 9970356, 2778642164, 5043875, 76848506 ####[facility] [address] [place] [address] Creatinine [Mass/Vol] 0.9 mg/dL Normal 0.5-1.3 [facility] Comment on above: Performed By: #### 9 45470561, 52883645, 8414365, 9992787, 6538282249, 5518360, 4829147837, 1337108, 25388003 ####[facility] [address] [place] [address] Glucose [Mass/Vol] 96 mg/dL Normal 55-199 [facility] Comment on above: Performed By: #### 9 89734391, 58842360, 5292203, 5782410, 9157551185, 3278960, 4411254760, 3765992, 54773061 ####[facility] [address] [place] [address] Potassium [Moles/Vol] 4.0 mmol/L Normal 3.5-5.3 [facility] Comment on above: Performed By: #### 9 19838789, 14127118, 1948518, 5868356, 0889304466, 1070823, 5066274861, 0797457, 50539432 ####[place] [address] [place] [address] Sodium [Moles/Vol] 140 mmol/L Normal 135-145 [facility] Comment on above: Performed By: #### 9 59121434, 97388955, 7537209, 0783283, 2377747298, 4137420, 1965563368, 3760947, 69310283 ####[facility] [address] [place] [address] Urea nitrogen [Mass/Vol] 5 mg/dL Normal 5-21 [facility] Comment on above: Performed By: #### 9 26213613, 44957179, 5704870, 0460054, 1923502317, 9311835, 4038322474, 1896385, 45668217 ####[facility] [address] [place] [address] Urea nitrogen/Creatinine [Mass ratio] 6 No Units Low 10-20 [facility] Comment on above: Performed By: #### 9 80149188, 56815959, 4297244, 9528745, 3747847386, 9691180, 6118780082, 7037211, 86634877 ####[place] [address] [place] [address] CBC w/ Auto Diffon 4 Basophils/100 WBC (Bld) 1.4 % Normal 0.0-2.0 [facility] Comment on above: Performed By: #### 9 07827137, 40718568, 1377148, 8957567, 5003506468, 7997525, 0479950708, 5269103, 44959146 ####[place] [address] Basophils/Leukocyte s Auto (Bld) [Pure # fraction] 0.0 E9/L Normal 0.0-0.2 [facility] Comment on above: Performed By: #### 9 09957376, 59983480, 2909045, 0440565, 9539447630, 5956283, 2568499298, 7098213, 59843061 ####[place] [address] Eosinophils (Bld) [#/Vol] 0.1 E9/L Normal 0.0-0.5 [facility] Comment on above: Performed By: #### 9 23183794, 01043872, 6503313, 5817230, 0689281619, 4250039, 8933702934, 3641018, 99516762 ####[place] [address] Eosinophils/100 WBC (Bld) 6.1 % Normal 0.0-8.0 [facility] Comment on above: Performed By: #### 9 94583824, 94779128, 4064592, 1668298, 5369950309, 3565381, 0451040600, 9631036, 52259594 ####[place] [address] Erythrocyte distribution width (RBC) [Ratio] 14.4 % High 10.9-14.2 [facility] Comment on above: Performed By: #### 9 66941068, 84926516, 4860917, 0911366, 8487250709, 7216501, 9143854686, 6320658, 28635751 ####[place] [address] Hematocrit (Bld) [Volume fraction] 36.1 % Normal 34.0-46.0 [facility] Comment on above: Performed By: #### 9 45068129, 72699157, 4146164, 7326626, 3714582923, 3722174, 9434240521, 7208392, 33682159 ####[facility] [address] [place] [address] Hemoglobin (Bld) [Mass/Vol] 12.2 g/dL Normal 12.0-16.0 [facility] Comment on above: Performed By: #### 9 75241759, 29953888, 2775748, 7455826, 7369525829, 5093628, 7398465514, 9881704, 98227946 ####[address] [address] Lymphocytes (Bld) [#/Vol] 1.1 E9/L Normal 1.0-4.0 [facility] Comment on above: Performed By: #### 9 60287044, 70398097, 3845877, 7110077, 5048843643, 9925099, 4002222557, 8299358, 63139425 ####[address] [address] Lymphocytes/100 WBC (Bld) 51.0 % High 14.0-50.0 [facility] Comment on above: Performed By: #### 9 26016296, 42808023, 9892614, 7615540, 4766215629, 5018723, 1398503376, 7063282, 50849053 ####[address] [address] MCH (RBC) [Entitic mass] 30.3 pg Normal 27.0-34.0 [facility] Comment on above: Performed By: #### 9 68205718, 07779902, 9968507, 3018767, 4225907465, 9434525, 2797821911, 7049670, 35553207 ####[address] [address] MCHC (RBC) [Mass/Vol] 33.9 g/dL Normal 31.4-36.0 [facility] Comment on above: Performed By: #### 9 17162364, 39116629, 7777720, 8101186, 0146962626, 8153311, 4520638534, 9502981, 29401942 ####[address] [address] MCV (RBC) [Entitic vol] 89.3 fL Normal 80.0-100.0 [facility] Comment on above: Performed By: #### 9 80272519, 89493766, 2889319, 8847227, 3268484715, 6639914, 9032648852, 1924495, 75826720 ####[place] [address] Monocytes (Bld) [#/Vol] 0.1 E9/L Low 0.2-1.0 [facility] Comment on above: Performed By: #### 9 70012315, 81433032, 7598975, 9454437, 4880325752, 1708455, 0183484761, 1134347, 39510680 ####[address] [address] Neutrophils (Bld) [#/Vol] 0.8 E9/L Low 2.0-7.5 [facility] Comment on above: Performed By: #### 9 13932930, 16652039, 0541459, 2202064, 2383603961, 7551027, 4771269630, 5512147, 36317179 ####[place] [address] Neutrophils/100 WBC (Bld) 36.8 % Normal 36.0-75.0 [facility] Comment on above: Performed By: #### 9 66909172, 82280359, 6925462, 7131509, 0328647003, 4691279, 3882042301, 0715105, 50438412 ####[address] [address] Platelet mean volume (Bld) [Entitic vol] 9.3 fL Normal 6.4-10.8 [facility] Comment on above: Performed By: #### 9 35342282, 20109927, 1634143, 6615608, 8051156617, 4254821, 0265226758, 7720210, 02505539 ####[facility] [address] [place] [address] Platelets (Bld) [#/Vol] 167.0 E9/L Normal 150.0-500.0 [facility] Comment on above: Performed By: #### 9 27634535, 63317884, 9693683, 4775758, 3194315457, 7034884, 3144156740, 1842898, 40987450 ####[facility] [address] [place] [address] RBC (Bld) [#/Vol] 4.0 E12/L Low 4.3-5.9 [facility] Comment on above: Performed By: #### 9 60497280, 42600671, 2486219, 1429640, 5446293878, 7005121, 7208939676, 8905976, 35317334 ####[facility] [address] [place] [address] WBC corrected for nucl RBC Auto (Bld) [#/Vol] 2.1 E9/L Low 4.0-11.0 [facility] Comment on above: Result Comment: Resu lts consistant with previous path review on 05/13/23, reviewed by [id number] Performed By: #### 9 16504389, 37652207, 7614562, 3465688, 8188626268, 9880885, 4506400893, 4189728, 22443578 ####[facility] [address] [place] [address] CHEMISTRYOrdered By: SYSTEM SYSTEM on 05-14-2023 Anion [...] Chem Consultation Noteon 05-14-19 Consultation Note Normal [facility] Comment on above: Result Comment: Elec tronically Signed By: Miguel JOHNSON, Jon Smith\.br\Date and Time Signed: 05/14/23 11:54 EDT Discharge Note-Nursingon Discharge Note-Nursing Invalid Interpretation Code [address] [place] [address] [place] [address]- \.br\ Wednesday 9:45 AM EDT \.br\ With: Nasim JOHNSON, Rajni Ballesteros\.br\ Where: [facility] Folateon 05-14-2023 Folate [Mass/Vol] 10.1 ng/mL Normal >=6.7 [facility] Comment on above: Performed By: #### 9 16619435, 22651354, 2902276, 7770386, 7642724570, 1908609, 3638871471, 4927366, 36232723 ####[facility] [address] [place] [address] HEMATOLOGYOrdered By: SYSTEM SYSTEM on 05-14-2023 Basophils/100 [...] previous path review on 05/13/23, reviewed by [id number] Inpatient Clinical Summaryon 05-14-2023 Inpatient Clinical Summary Normal [facility] Inpatient Patient Summaryon 05-14-2023 Inpatient Patient Summary Normal [facility] Interdisciplinary Note - Taz e Manageron 05-14-2023 Interdisciplinary Note - Butt Maker Normal [facility] Comment on above: Result Comment: Elec tronically Signed By: Kera Diehl\.br\Date and Time Signed: 05/14/23 10:23 EDT IntraOperative Documentson 0 05-14-2023 IntraOperative Documents [id number]#1.00TIFF Normal [facility] Progress Note-Physicianon Progress Note-Physician Normal [facility] Comment on above: Result Comment: Elec tronically Signed By: Moncho Trejo DO.br\Date and Time Signed: 05/14/23 10:14 EDT Progress Note-Physician Normal [facility] Comment on above: Result Comment: Elec tronically Signed By: Kuldip Arcos Jr, DO.br\Date and Time Signed: 05/14/23 07:41 EDT Progress Note-Physician Normal [facility] Comment on above: Result Comment: Elec tronically Signed By: Kuldip Arcos Jr, DO\.br\Date and Time Signed: 05/14/23 07:41 EDT Vit B12on 05-14-2023 Cobalamin (Vitamin B12) [Mass/Vol] 791 pg/mL Normal 50-1500 [facility] Comment on above: Performed By: #### 9 [id number], 70323914, 2006457, 8467006, 4596089063, 9398385, 1135219771, 3761614, 56842343 ####[address] [address] eGFRon 05-14-2023 eGFR 86 mL/min/1.73 m2 Normal >=59 [facility] Comment on above: Order Comment: Order added by Discern Expert. Performed By: #### 9 [id number], 64819367, 1598485, 3910311, 2237650428, 3447275, 0252353261, 8883337, 88878284 ####[address] [address] CBC w/ Auto Diffon 4 Basophils/100 WBC (Bld) 1.2 % Normal 0.0-2.0 [facility] Comment on above: Performed By: #### 2 365218, 5676611, 49700083, 71751285 ####[address] [address] Basophils/Leukocyte s Auto (Bld) [Pure # fraction] 0.0 E9/L Normal 0.0-0.2 [facility] Comment on above: Performed By: #### 2 009041, 0086150, 25516779, 22319832 ####[address] [address] Eosinophils (Bld) [#/Vol] 0.1 E9/L Normal 0.0-0.5 [facility] Comment on above: Performed By: #### 2 171743, 9760155, 34669337, 14057771 ####[address] [address] Eosinophils/100 WBC (Bld) 4.7 % Normal 0.0-8.0 [facility] Comment on above: Performed By: #### 2 201705, 9307026, 37510770, 10810208 ####[address] [address] Erythrocyte distribution width (RBC) [Ratio] 14.3 % High 10.9-14.2 [facility] Comment on above: Performed By: #### 2 960959, 2315133, 23797057, 17727875 ####[place] [address] Hematocrit (Bld) [Volume fraction] 37.1 % Normal 34.0-46.0 [facility] Comment on above: Performed By: #### 2 855854, 2907132, 66199715, 02258333 ####[place] [address] Hemoglobin (Bld) [Mass/Vol] 12.5 g/dL Normal 12.0-16.0 [facility] Comment on above: Performed By: #### 2 380701, 1812873, 58942555, 84615256 ####[place] [address] Lymphocytes (Bld) [#/Vol] 1.1 E9/L Normal 1.0-4.0 [facility] Comment on above: Performed By: #### 2 268774, 7580663, 12239387, 30599045 ####[address] [address] Lymphocytes/100 WBC (Bld) 53.2 % High 14.0-50.0 [facility] Comment on above: Performed By: #### 2 283174, 9792006, 80997857, 24518081 ####[address] [address] MCH (RBC) [Entitic mass] 30.1 pg Normal 27.0-34.0 [facility] Comment on above: Performed By: #### 2 260648, 0825867, 98900338, 71902973 ####[address] [address] MCHC (RBC) [Mass/Vol] 33.6 g/dL Normal 31.4-36.0 [facility] Comment on above: Performed By: #### 2 979463, 5827364, 81222981, 85951749 ####[address] [address] MCV (RBC) [Entitic vol] 89.4 fL Normal 80.0-100.0 [facility] Comment on above: Performed By: #### 2 943125, 1798678, 55265510, 97266751 ####[address] [address] Monocytes (Bld) [#/Vol] 0.1 E9/L Low 0.2-1.0 [facility] Comment on above: Performed By: #### 2 491151, 9581463, 19005905, 51994088 ####[address] [address] Neutrophils (Bld) [#/Vol] 0.7 E9/L Low 2.0-7.5 [facility] Comment on above: Performed By: #### 2 499534, 0042874, 85740754, 37963054 ####[address] [address] Neutrophils/100 WBC (Bld) 34.6 % Low 36.0-75.0 [facility] Comment on above: Performed By: #### 2 315597, 3779925, 78390470, 77796814 ####[address] [address] Platelet 168.0 E9/L Normal 150.0-500.0 [facility] Comment on above: Performed By: #### 2 105613, 6960311, 32203736, 44383960 ####[address] [address] Platelet mean volume (Bld) [Entitic vol] 9.1 fL Normal 6.4-10.8 [facility] Comment on above: Performed By: #### 2 713945, 5974626, 23233098, 43359793 ####[address] [address] RBC (Bld) [#/Vol] 4.1 E12/L Low 4.3-5.9 [facility] Comment on above: Performed By: #### 2 540360, 1072467, 56595549, 14008876 ####[facility] [address] [place] [address] WBC corrected for nucl RBC Auto (Bld) [#/Vol] 2.0 E9/L Abnormal 4.0-11.0 [facility] Comment on above: Result Comment: Resu lts called to JACKSON MARROQUIN by and read back on 05/13/2023 07:20:49.Critical Result Verified by Repeat AnalysisSlide review performed Performed By: #### 2 844434, 4384154, 25798722, 99401830 ####[facility] [address] [place] [address] CHEMISTRYOrdered By: SYSTEM SYSTEM on 05-13-2023 Albumin [...] 05-13-2023 Albumin [Mass/Vol] 3.9 g/dL Normal 3.3-5.0 [facility] Comment on above: Performed By: #### 2 411810, 5389801, 09492884, 64975473 ####[facility] [address] [place] [address] Albumin/Globulin (S) [Mass conc ratio] 1.6 Normal 1.1-2.2 [facility] Comment on above: Performed By: #### 2 270512, 2330294, 86081572, 53380454 ####[facility] [address] [place] [address] ALP [Catalytic activity/Vol] 49 Int._Unit/L Normal 21-98 [facility] Comment on above: Performed By: #### 2 304340, 7883383, 12412431, 20893321 ####[facility] [address] [place] [address] ALT No additional P-5'-P [Catalytic activity/Vol] 12 Int._Unit/L Normal 6-46 [facility] Comment on above: Performed By: #### 2 348480, 3215956, 52850018, 86718590 ####[facility] [address] [place] [address] Anion gap [Moles/Vol] 9 mmol/L Normal 6-16 [facility] Comment on above: Performed By: #### 2 127456, 2317948, 22049867, 72385806 ####[facility] [address] [place] [address] AST [Catalytic activity/Vol] 23 Int._Unit/L Normal 5-43 [facility] Comment on above: Performed By: #### 2 552135, 8638827, 15892759, 93940763 ####[facility] [address] [place] [address] Bilirubin [Mass/Vol] 0.4 mg/dL Normal 0.0-1.1 [facility] Comment on above: Performed By: #### 2 062461, 9219854, 47708664, 31463491 ####[facility] [address] [place] [address] Calcium [Mass/Vol] 8.4 mg/dL Low 8.9-11.1 [facility] Comment on above: Performed By: #### 2 992535, 3725370, 40088685, 84992642 ####[facility] [address] [place] [address] Chloride [Moles/Vol] 111 mmol/L Normal 101-111 [facility] Comment on above: Performed By: #### 2 948886, 3311841, 29843555, 37617729 ####[facility] [address] [place] [address] CO2 [Moles/Vol] 24 mmol/L Normal 21-31 [facility] Comment on above: Performed By: #### 2 154930, 9560576, 84803684, 77380540 ####[facility] [address] [place] [address] Creatinine [Mass/Vol] 0.7 mg/dL Normal 0.5-1.3 [facility] Comment on above: Performed By: #### 2 825841, 0639560, 37784709, 86060025 ####[facility] [address] [place] [address] Globulin (S) [Mass/Vol] 2.5 g/dL Normal 1.4-4.0 [facility] Comment on above: Performed By: #### 2 931234, 3126602, 64754353, 40942089 ####[facility] [address] [place] [address] Glucose [Mass/Vol] 84 mg/dL Normal 55-199 [facility] Comment on above: Performed By: #### 2 124042, 9828172, 11414437, 09500653 ####[facility] [address] [place] [address] Potassium [Moles/Vol] 3.7 mmol/L Normal 3.5-5.3 [facility] Comment on above: Performed By: #### 2 699874, 9780311, 91490090, 12757407 ####[facility] [address] [place] [address] Protein [Mass/Vol] 6.4 g/dL Normal 6.0-7.8 [facility] Comment on above: Performed By: #### 2 165578, 0522769, 96917068, 85827873 ####[facility] [address] [place] [address] Sodium [Moles/Vol] 140 mmol/L Normal 135-145 [facility] Comment on above: Performed By: #### 2 922096, 8244107, 55479585, 90336853 ####[facility] [address] [place] [address] Urea nitrogen [Mass/Vol] 7 mg/dL Normal 5-21 [facility] Comment on above: Performed By: #### 2 918468, 3554412, 91543591, 22557563 ####[facility] [address] [place] [address] Urea nitrogen/Creatinine [Mass ratio] 10 No Units Normal 10-20 [facility] Comment on above: Performed By: #### 2 507368, 0328286, 94019771, 25101544 ####[facility] [address] [place] [address] Consenton 05-13-2023 Consent [id number] 250#1.00TIFF Normal [facility] Consultation Noteon 05-13-19 24 Consultation Note Normal [facility] Comment on above: Result Comment: Elec [...] Resu lts called to JACKSON MARROQUIN by and read back on 05/13/2023 07:20:49. Critical Result Verified by Repeat Analysis Slide review performed HEMATOLOGYOrdered By: Stephan Tavares on 05-13-2023 Path Review Anemia with no increase of reticulocytes. Leukocytopenia with reactive lymphocytes and monocytes.CPT 83592 Invalid Interpretation Code [facility] HemeManSS Interdisciplinary Note - Taz e Manageron 05-13-2023 Interdisciplinary Note - Butt Maker Normal [facility] Comment on above: Result Comment: Elec tronically Signed By: Kera Diehl\.br\Date and Time Signed: 05/13/23 13:46 EDT Main OR Intraoperative Recor don 05-13-2023 Main OR Intraoperative Record Normal [facility] Oncology Progress Noteon Oncology Progress Note Normal [facility] Path. Reviewon 05-13-2023 Path Review Anemia with no increase of reticulocytes. Leukocytopenia with reactive lymphocytes and monocytes. Invalid Interpretation Code [facility] Comment on above: Order Comment: Order added by Discern Expert Performed By: #### 2 255297, 2928823, 50948963, 38562427 ####[facility] [address] [place] [address] Progress Note-Physicianon Progress Note-Physician Normal [facility] Comment on above: Result Comment: Elec tronically Signed By: Neil VALENZUELA, Moncho Nealbr\Date and Time Signed: 05/13/23 10:43 EDT eGFRon 05-13-2023 eGFR 116 mL/min/1.73 m2 Normal >=59 [facility] Comment on above: Order Comment: Order added by Mariela Expert. Performed By: #### 2 787213, 8873401, 97338566, 96496391 ####[facility] [address] [place] [address] B hCG Qualon 05-12-2023 Beta HCG ( test) Ql Negative Normal [facility] Comment on above: Performed By: #### 1 9314376, 7321866, 81830545, 7269251, 5041442, 33271825, 80961672, 6535070 ####[facility] [address] [place] [address] BMPOrdered By: SYSTEM SYSTEM on 05-12-2023 Anion gap [Moles/Vol] 11 mmol/L Normal 6-16 [facility] Comment on above: Performed By: #### 1 9970534, 5892571, 79689374, 1139440, 3243060, 33467481, 06337894, 8952717 ####[facility] [address] [place] [address] Calcium [Mass/Vol] 9.0 mg/dL Normal 8.9-11.1 [facility] Comment on above: Performed By: #### 1 6563420, 9295254, 20023322, 1835313, 8764250, 53320638, 38757985, 1753114 ####[facility] [address] [place] [address] Chloride [Moles/Vol] 105 mmol/L Normal 101-111 [facility] Comment on above: Performed By: #### 1 4888441, 0799875, 88765778, 3107911, 7525060, 95139614, 79919979, 9913449 ####[place] [address] [place] [address] CO2 [Moles/Vol] 25 mmol/L Normal 21-31 [facility] Comment on above: Performed By: #### 1 4407253, 9938992, 60079390, 4569450, 0787209, 92855269, 68608192, 0140997 ####[address] [address] Creatinine [Mass/Vol] 1.0 mg/dL Normal 0.5-1.3 [facility] Comment on above: Performed By: #### 1 1737450, 8268997, 72450990, 2722354, 1674696, 82110310, 57848717, 2595788 ####[address] [address] Glucose [Mass/Vol] 94 mg/dL Normal 55-199 [facility] Comment on above: Performed By: #### 1 4527547, 2592639, 73579609, 0326663, 0267917, 85637067, 60737912, 7744299 ####[address] [address] Potassium [Moles/Vol] 3.9 mmol/L Normal 3.5-5.3 [facility] Comment on above: Performed By: #### 1 2820415, 6268955, 30108570, 9346033, 9011219, 18909131, 00161748, 5839603 ####[address] [address] Sodium [Moles/Vol] 137 mmol/L Normal 135-145 [facility] Comment on above: Performed By: #### 1 9495801, 2645791, 78592188, 1220648, 1690661, 50447817, 95527877, 1448146 ####[place] [address] [address] Urea nitrogen [Mass/Vol] 10 mg/dL Normal 5-21 [facility] Comment on above: Performed By: #### 1 9941933, 0276200, 83443315, 3022265, 6522340, 60200279, 63166728, 1163385 ####[place] [address] [address] BMPon 05-12-2023 Urea nitrogen/Creatinine [Mass ratio] 10 No Units Normal 10-20 [facility] Comment on above: Performed By: #### 1 8372456, 6685079, 57032445, 6534213, 0944561, 31677737, 70459988, 7629198 ####[place] [address] [address] CBC w/ Auto DiffOrdered By: SYSTEM SYSTEM on 05-12-2023 Basophils/100 WBC (Bld) 0.9 % Normal 0.0-2.0 [facility] Comment on above: Performed By: #### 1 2463370, 4946718, 46339035, 5385982, 3004685, 91831260, 28387386, 3970828 ####[place] [address] [address] Basophils/Leukocyte s Auto (Bld) [Pure # fraction] 0.0 E9/L Normal 0.0-0.2 [facility] Comment on above: Performed By: #### 1 7150851, 0455036, 88614014, 5439544, 5026238, 22453615, 22361123, 0946128 ####[place] [address] [address] Eosinophils (Bld) [#/Vol] 0.1 E9/L Normal 0.0-0.5 [facility] Comment on above: Performed By: #### 1 2713495, 5235763, 79114462, 3301240, 5213588, 18207099, 39517350, 2238575 ####[place] [address] [address] Eosinophils/100 WBC (Bld) 2.3 % Normal 0.0-8.0 [facility] Comment on above: Performed By: #### 1 3314131, 3070546, 64860125, 4844308, 4833547, 67531788, 29010193, 2761849 ####[place] [address] [address] Erythrocyte distribution width (RBC) [Ratio] 14.3 % High 10.9-14.2 [facility] Comment on above: Performed By: #### 1 5829839, 2752562, 80594560, 3127826, 8509874, 99722256, 92303529, 0904519 ####[place] [address] [address] Hematocrit (Bld) [Volume fraction] 39.8 % Normal 34.0-46.0 [facility] Comment on above: Performed By: #### 1 5686802, 5293857, 39647609, 5250180, 1237996, 98272272, 46468334, 6084870 ####[place] [address] [address] Hemoglobin (Bld) [Mass/Vol] 13.5 g/dL Normal 12.0-16.0 [facility] Comment on above: Performed By: #### 1 9783127, 8997133, 51118687, 4007810, 7141297, 71819123, 44416027, 0315220 ####[place] [address] [address] Lymphocytes (Bld) [#/Vol] 1.3 E9/L Normal 1.0-4.0 [facility] Comment on above: Performed By: #### 1 9285326, 4438096, 88848960, 1028560, 6220039, 96490394, 37672154, 3483409 ####[place] [address] [address] Lymphocytes/100 WBC (Bld) 46.0 % Normal 14.0-50.0 [facility] Comment on above: Performed By: #### 1 9896800, 8779694, 05058815, 9933976, 6219635, 73736599, 40880404, 0606494 ####[place] [address] MCH (RBC) [Entitic mass] 30.2 pg Normal 27.0-34.0 [facility] Comment on above: Performed By: #### 1 8587114, 2865478, 68304897, 2719146, 9891114, 94241831, 36575089, 4394355 ####[place] [address] MCHC (RBC) [Mass/Vol] 34.0 g/dL Normal 31.4-36.0 [facility] Comment on above: Performed By: #### 1 0497250, 2448927, 20593338, 1231756, 7115871, 80588895, 47335960, 1639363 ####[place] [address] MCV (RBC) [Entitic vol] 88.8 fL Normal 80.0-100.0 [facility] Comment on above: Performed By: #### 1 7097848, 7807751, 72434628, 0854205, 4178114, 83843573, 32522225, 5415925 ####[place] [address] Monocytes (Bld) [#/Vol] 0.2 E9/L Normal 0.2-1.0 [facility] Comment on above: Performed By: #### 1 8729042, 5489333, 52068911, 1363025, 5689317, 70785930, 03259738, 8462228 ####[place] [address] Neutrophils (Bld) [#/Vol] 1.2 E9/L Low 2.0-7.5 [facility] Comment on above: Performed By: #### 1 9694161, 7489238, 85994731, 5407259, 9577405, 25552116, 83055138, 5738643 ####[place] [address] [address] Neutrophils/100 WBC (Bld) 42.5 % Normal 36.0-75.0 [facility] Comment on above: Performed By: #### 1 4875153, 5112487, 81238116, 4822616, 7263895, 24303449, 08602554, 4170049 ####[place] [address] [address] Platelet mean volume (Bld) [Entitic vol] 9.0 fL Normal 6.4-10.8 [facility] Comment on above: Performed By: #### 1 5501087, 6642996, 86870406, 1915382, 9166451, 58905319, 44344422, 5328067 ####[place] [address] [address] Platelets (Bld) [#/Vol] 179.0 E9/L Normal 150.0-500.0 [facility] Comment on above: Performed By: #### 1 9098668, 1496244, 19853249, 3130727, 4211763, 56707820, 27474848, 7251448 ####[place] [address] [address] RBC (Bld) [#/Vol] 4.5 E12/L Normal 4.3-5.9 [facility] Comment on above: Performed By: #### 1 0091511, 7176497, 97421297, 1935840, 5570953, 53924643, 89784376, 2122907 ####[place] [address] [address] WBC corrected for nucl RBC Auto (Bld) [#/Vol] 2.8 E9/L Low 4.0-11.0 [facility] Comment on above: Performed By: #### 1 0539046, 8367363, 57899380, 8752322, 6685058, 19279766, 71426905, 5559014 ####[place] [facility] [address] [place] [address] CHEMISTRYOrdered By: SYSTEM SYSTEM on 05-12-2023 Albumin/Globulin [...] For Use, Alan Gordy, September 2017) Urea nitrogen/Creatinine [Mass ratio] 10 mg/mg Normal 10 - 20 [facility] COAGULATIONOrdered By: Shannon Chappell on 05-12-2023 aPTT Coag (PPP) [Time] 34.7 s Normal 25.1 - 36.5 second(s) [facility] Auto Coag Comment on above: Interpretive Data: [...] the same coagulation reagent and instrumentation as [facility]. Currently there are no coagulation studies available worldwide for children to 14 days, and no normal ranges. Heparin therapeutic range (represented by Anti-Factor Xa activity of 0.2 - 0.4 U/mL) corresponds to PTT of 56.6 - 109.0 sec. PT Coag (PPP) [Time] 13.1 s High 9.4 - 12.5 second(s) [facility] Auto Coag Comment on above: Interpretive Data: [...] the same coagulation reagent and instrumentation as [facility]. Currently there are no coagulation studies available worldwide for children to 14 days, and no normal ranges. Consent for Treatmenton 04-16 Consent for Treatment [id number] 68#1.00TIFF Normal [facility] Consultation Noteon 05-12-19 Consultation Note Normal [facility] Comment on above: Result Comment: Elec tronically Signed By: Jon Rivera MD\.br\Date and Time Signed: 05/12/23 15:42 EDT ED Clinical Summaryon 2023 ED Clinical Summary Normal [facility] ED Note-Physicianon 05-12-19 ED Note-Physician Normal [facility] Comment on above: Result Comment: Elec tronically Signed By: Mauricio López PA-C\.br\Date and Time Signed: 05/12/23 12:06 EDT\.br\Electronically Co-Signed By: Mateusz Garcia DO\.br\Date and Time Co-Signed: 05/12/23 12:48 EDT ED Patient Education Noteon 05-12-2023 ED Patient Education Note Normal [facility] ED Patient Summaryon 024 ED Patient Summary Normal [facility] Endoscopic Procedure Report - Otheron 05-12-2023 Endoscopic Procedure Report - Other Normal [facility] Comment on above: Result Comment: Elec tronically Signed By: Miguel JOHNSON, Jon Smith\.rene\Date and Time Signed: 05/12/23 15:48 EDT Other Comment: Ramya jordan Attachment - attachment storage system not supported [id number] Can be viewed in source systemMissing Attachment - attachment storage system not supported [id number] Can be viewed in source systemMissing Attachment - attachment storage system not supported [id number] Can be viewed in source systemMissing Attachment - attachment storage system not supported [id number] Can be viewed in source systemMissing Attachment - attachment storage system not supported [id number] Can be viewed in source systemMissing Attachment - attachment storage system not supported [id number] Can be viewed in source systemMissing Attachment - attachment storage system not supported 4421026 Can be viewed in source systemMissing Attachment - attachment storage system not supported [id number] Can be viewed in source systemMissing Attachment - attachment storage system not supported [id number] Can be viewed in source system HEMATOLOGYOrdered By: SYSTEM SYSTEM on 05-12-2023 Monocytes/100 WBC (Bld) 8.3 % Normal 4.0 - 14.0 % [facility] Hep Func PanelOrdered By: SY STEM SYSTEM on 05-12-2023 Albumin [Mass/Vol] 4.3 g/dL Normal 3.3-5.0 [facility] Comment on above: Performed By: #### 1 6910264, 6169860, 84970705, 4644259, 7940901, 09919901, 82404945, 9095180 ####[facility] [address] [place] [address] Bilirubin [Mass/Vol] 0.4 mg/dL Normal 0.0-1.1 [facility] Comment on above: Performed By: #### 1 8328747, 0059027, 28139250, 5810938, 1017015, 48373326, 77860368, 9118573 ####[facility] [address] [place] [address] Bilirubin.direct [Mass/Vol] 0.1 mg/dL Normal 0.0-0.4 [facility] Comment on above: Performed By: #### 1 4645107, 4739820, 47734404, 4617268, 8590102, 74426759, 23878685, 2402006 ####[place] [address] [place] [address] Bilirubin.indirect [Mass or moles/Vol] 0.3 mg/dL Normal 0.1-0.9 [facility] Comment on above: Performed By: #### 1 7709640, 6569744, 80267713, 8426437, 5067862, 04876876, 39400724, 1967626 ####[address] [address] Globulin (S) [Mass/Vol] 2.3 g/dL Normal 1.4-4.0 [facility] Comment on above: Performed By: #### 1 5576379, 1930259, 09001814, 9878556, 2992661, 46004577, 03420334, 4299143 ####[address] [address] Protein [Mass/Vol] 6.6 g/dL Normal 6.0-7.8 [facility] Comment on above: Performed By: #### 1 7085683, 0826099, 04434670, 2667193, 1961585, 29423078, 87375193, 6653541 ####[address] [address] Hep Func Panelon 05-12-2023 Albumin/Globulin (S) [Mass conc ratio] 1.9 Normal 1.1-2.2 [facility] Comment on above: Performed By: #### 1 1713978, 7109142, 69811606, 3891395, 4648217, 17922362, 01368279, 4895148 ####[address] [address] ALP [Catalytic activity/Vol] 58 Int._Unit/L Normal 21-98 [facility] Comment on above: Performed By: #### 1 5501097, 5705651, 10913748, 9699901, 8340595, 48059477, 07119442, 1645897 ####[facility] [address] [place] [address] ALT No additional P-5'-P [Catalytic activity/Vol] 14 Int._Unit/L Normal 6-46 [facility] Comment on above: Performed By: #### 1 9160491, 3466978, 34043832, 2313188, 2702296, 48914577, 23104884, 7040466 ####[facility] [address] [place] [address] AST [Catalytic activity/Vol] 26 Int._Unit/L Normal 5-43 [facility] Comment on above: Performed By: #### 1 1182544, 7159056, 39631821, 5259888, 4483721, 06879977, 60949134, 6275828 ####[address] [place] [address] Interdisciplinary Note - Taz e Manageron 05-12-2023 Interdisciplinary Note - Butt Maker Normal [facility] Comment on above: Result Comment: Elec tronically Signed By: Kera Diehl\.br\Date and Time Signed: 05/12/23 15:40 EDT Lipase LevelOrdered By: Expand Beyond SYSTEM on 05-12-2023 Lipase [Catalytic activity/Vol] 35 U/L Normal 13-58 [facility] Comment on above: Performed By: #### 1 1932928, 8137129, 51138724, 0078056, 8526606, 52042565, 03047316, 2184449 ####[facility] [address] [place] [address] Main OR PACU I Recordon 04-16 Main OR PACU I Record Normal [facility] Main OR Preoperative Recordo n 05-12-2023 Main OR Preoperative Record Normal [facility] Monitor Recordon 05-12-2023 Monitor Record [id number] 467#1.00TIFF Normal [facility] Monitor Record [id number]#1.00TIFF Normal [facility] Monitor Record [id number]#1.00TIFF Normal [facility] PT & PTTon 05-12-2023 aPTT Coag (PPP) [Time] 34.7 second(s) Normal 25.1-36.5 [facility] Comment on above: Result Comment: Para [...] the same coagulation reagent and instrumentation as [facility]. Currently there are no coagulation studies available worldwide for children to 14 days, and no normal ranges. Heparin therapeutic range (represented by Anti-Factor Xa activity of 0.2 - 0.4 U/mL) corresponds to PTT of 56.6 - 109.0 sec. Performed By: #### 1 8558253, 8688766, 41137068, 8064307, 2250571, 24215763, 23874813, 3314204 ####[facility] [address] [place] [address] PT Coag (PPP) [Time] 13.1 second(s) High 9.4-12.5 [facility] Comment on above: Result Comment: 15 [...] the same coagulation reagent and instrumentation as [facility]. Currently there are no coagulation studies available worldwide for children to 14 days, and no normal ranges. Performed By: #### 1 6061153, 5201413, 77620566, 3306936, 5113306, 08924229, 95252111, 7290577 ####[facility] [address] [place] [address] PT & PTTOrdered By: Shannon cutler on 05-12-2023 INR Coag (PPP) [Relative time] 1.17 {INR} Invalid Interpretation Code [facility] Auto Coag Comment on above: Interpretive Data: [...] 3.0 ? 4.5 Performed By: #### 1 3363986, 8951988, 52005776, 0055895, 6249682, 07366437, 28325010, 6177630 ####[facility] [address] [place] [address] Provider Letteron 05-12-2023 Provider Letter Normal [facility] SEROLOGYOrdered By: Shannon cutler on 05-12-2023 Beta HCG ( test) Ql Negative (05/12/23 10:00 AM) Normal [facility] Man Sero Troponin 0 Hr.on 05-12-2023 Troponin I.cardiac [Mass/Vol] ng/mL Low 10.10-27.10 [facility] Comment on above: Result Comment: The 95% CI (Confidence Interval) PPV (Positive Predictive Value) for myocardial infarction in females is 38 pg/mL, in males 51 pg/mL. The results should be used in conjunction with clinical conditions of myocardial infarction.(Access High Sensitivity Troponin I Instructions For Use, Alan Gordy, September 2017) Performed By: #### 1 3063950, 9324895, 97783458, 4628564, 9537602, 60980170, 42651222, 0662945 ####[facility] [address] [place] [address] eGFROrdered By: SYSTEM [employer] on 05-12-2023 eGFR 76 mL/min/1.73 m2 Normal >=59 [facility] Comment on above: Order Comment: Order added by Discern Expert. Performed By: #### 1 7955490, 9548169, 95928457, 4085941, 2608753, 72742745, 60521847, 6691850 ####[address] [address] CBC w/ Auto Diffon Basophils/100 WBC (Bld) 0.7 % Normal 0.0-2.0 [facility] Comment on above: Performed By: #### 2 030498, 6643955, 24093505, 6032333, 4793962, 0950825 ####[address] [address] Basophils/Leukocyte s Auto (Bld) [Pure # fraction] 0.0 E9/L Normal 0.0-0.2 [facility] Comment on above: Performed By: #### 2 171214, 5358873, 87053369, 9251009, 5075426, 8437418 ####[address] [address] Eosinophils (Bld) [#/Vol] 0.0 E9/L Normal 0.0-0.5 [facility] Comment on above: Performed By: #### 2 713975, 4974411, 45796964, 3957388, 4585819, 4450688 ####[address] [place] [address] Eosinophils/100 WBC (Bld) 1.5 % Normal 0.0-8.0 [facility] Comment on above: Performed By: #### 2 540979, 1414338, 92541985, 6349112, 3684747, 6286212 ####[address] [place] [address] Erythrocyte distribution width (RBC) [Ratio] 14.6 % High 10.9-14.2 [facility] Comment on above: Performed By: #### 2 931724, 8461421, 19538163, 0462794, 6092299, 6724807 ####[address] [address] Hematocrit (Bld) [Volume fraction] 38.7 % Normal 34.0-46.0 [facility] Comment on above: Performed By: #### 2 207145, 7707491, 57742031, 9606678, 3011241, 0400230 ####[address] [address] Hemoglobin (Bld) [Mass/Vol] 13.2 g/dL Normal 12.0-16.0 [facility] Comment on above: Performed By: #### 2 729422, 3213421, 12596406, 2612460, 0654119, 1865509 ####[address] [address] Lymphocytes (Bld) [#/Vol] 1.3 E9/L Normal 1.0-4.0 [facility] Comment on above: Performed By: #### 2 688876, 5841952, 51794713, 9873683, 8032643, 9606697 ####[address] [address] Lymphocytes/100 WBC (Bld) 48.6 % Normal 14.0-50.0 [facility] Comment on above: Performed By: #### 2 740700, 1359635, 00723109, 9444653, 2459506, 5333663 ####[address] [place] [address] MCH (RBC) [Entitic mass] 30.3 pg Normal 27.0-34.0 [facility] Comment on above: Performed By: #### 2 348835, 8020912, 95531893, 7692234, 8460763, 5962406 ####[address] [address] MCHC (RBC) [Mass/Vol] 34.2 g/dL Normal 31.4-36.0 [facility] Comment on above: Performed By: #### 2 717154, 5340270, 88848794, 3383800, 2834113, 9048374 ####[address] [address] MCV (RBC) [Entitic vol] 88.6 fL Normal 80.0-100.0 [facility] Comment on above: Performed By: #### 2 211568, 0629918, 14136890, 7536601, 1549437, 2707949 ####[address] Monocytes (Bld) [#/Vol] 0.2 E9/L Normal 0.2-1.0 [facility] Comment on above: Performed By: #### 2 592853, 9757849, 82532116, 1352739, 7640331, 6640727 ####[address] [address] Neutrophils (Bld) [#/Vol] 1.1 E9/L Low 2.0-7.5 [facility] Comment on above: Performed By: #### 2 427046, 8029369, 68343882, 0190545, 8335517, 7500896 ####[address] [address] Neutrophils/100 WBC (Bld) 40.2 % Normal 36.0-75.0 [facility] Comment on above: Performed By: #### 2 023595, 8167558, 81614041, 4194201, 6915899, 5162952 ####[address] [address] Platelet mean volume (Bld) [Entitic vol] 9.2 fL Normal 6.4-10.8 [facility] Comment on above: Performed By: #### 2 434966, 0339346, 35272921, 2713689, 8513391, 1976832 ####[facility] [address] [place] [address] Platelets (Bld) [#/Vol] 195.0 E9/L Normal 150.0-500.0 [facility] Comment on above: Performed By: #### 2 448556, 3218458, 69698006, 6979565, 0540371, 2501535 ####[address] [place] [address] RBC (Bld) [#/Vol] 4.4 E12/L Normal 4.3-5.9 [facility] Comment on above: Performed By: #### 2 355785, 0514175, 87311297, 5580874, 0294226, 8626396 ####[facility] [address] [place] [address] WBC corrected for nucl RBC Auto (Bld) [#/Vol] 2.7 E9/L Low 4.0-11.0 [facility] Comment on above: Performed By: #### 2 147942, 8221704, 85030434, 3968645, 7974131, 4743711 ####[facility] [address] [place] [address] CHEMISTRYOrdered By: SYSTEM SYSTEM on 05-11-2023 Amphetamines [...] Alternate Method called to Maribel Ortega by [id number] Interpretive Data: N egative Cutoff: <300 ng/mL [...] 05-11-2023 Albumin [Mass/Vol] 4.6 g/dL Normal 3.3-5.0 [facility] Comment on above: Performed By: #### 2 390450, 8689192, 65394330, 4997320, 9615440, 5529720 ####[facility] [address] [place] [address] Albumin/Globulin (S) [Mass conc ratio] 1.8 Normal 1.1-2.2 [facility] Comment on above: Performed By: #### 2 084988, 4929616, 78469179, 2621931, 6460467, 5566293 ####[facility] [address] [place] [address] ALP [Catalytic activity/Vol] 60 Int._Unit/L Normal 21-98 [facility] Comment on above: Performed By: #### 2 527533, 9217193, 95429521, 7783353, 8120348, 7113080 ####[facility] [address] [place] [address] ALT No additional P-5'-P [Catalytic activity/Vol] 14 Int._Unit/L Normal 6-46 [facility] Comment on above: Performed By: #### 2 667081, 1899447, 81292331, 9784184, 6116843, 3684819 ####[facility] [address] [place] [address] Anion gap [Moles/Vol] 15 mmol/L Normal 6-16 [facility] Comment on above: Performed By: #### 2 313410, 0686085, 97700307, 6149441, 3033112, 9653627 ####[facility] [address] [place] [address] AST [Catalytic activity/Vol] 25 Int._Unit/L Normal 5-43 [facility] Comment on above: Performed By: #### 2 175090, 4255951, 82137902, 6695195, 2860961, 1429036 ####[facility] [address] [place] [address] Bilirubin [Mass/Vol] 0.5 mg/dL Normal 0.0-1.1 [facility] Comment on above: Performed By: #### 2 242027, 9613322, 54963086, 7242136, 9500989, 8494210 ####[facility] [address] [place] [address] Calcium [Mass/Vol] 9.4 mg/dL Normal 8.9-11.1 [facility] Comment on above: Performed By: #### 2 614316, 8603636, 02884376, 9281298, 6035429, 4973545 ####[facility] [address] [place] [address] Chloride [Moles/Vol] 104 mmol/L Normal 101-111 [facility] Comment on above: Performed By: #### 2 395224, 6425344, 18883678, 4044512, 8976339, 6452556 ####[facility] [address] [place] [address] CO2 [Moles/Vol] 23 mmol/L Normal 21-31 [facility] Comment on above: Performed By: #### 2 671002, 4657025, 88783508, 6977569, 8237483, 9718860 ####[facility] [address] [place] [address] Creatinine [Mass/Vol] 0.8 mg/dL Normal 0.5-1.3 [facility] Comment on above: Performed By: #### 2 938995, 1688074, 54560643, 5864554, 8432378, 3881957 ####[facility] [address] [place] [address] Globulin (S) [Mass/Vol] 2.5 g/dL Normal 1.4-4.0 [facility] Comment on above: Performed By: #### 2 363923, 3017095, 22073458, 6677990, 1974870, 1423874 ####[facility] [address] [place] [address] Glucose [Mass/Vol] 80 mg/dL Normal 55-199 [facility] Comment on above: Performed By: #### 2 517632, 4448634, 53069417, 2335402, 0059983, 6142676 ####[facility] [address] [place] [address] Potassium [Moles/Vol] 3.6 mmol/L Normal 3.5-5.3 [facility] Comment on above: Performed By: #### 2 669584, 1812979, 82120988, 5518350, 1759714, 8568579 ####[facility] [address] [place] [address] Protein [Mass/Vol] 7.1 g/dL Normal 6.0-7.8 [facility] Comment on above: Performed By: #### 2 538849, 2608452, 89262978, 0765319, 6170955, 6273143 ####[facility] [address] [place] [address] Sodium [Moles/Vol] 138 mmol/L Normal 135-145 [facility] Comment on above: Performed By: #### 2 908021, 3887552, 53990833, 9816772, 9785181, 4318485 ####[facility] [address] [place] [address] Urea nitrogen [Mass/Vol] 9 mg/dL Normal 5-21 [facility] Comment on above: Performed By: #### 2 119927, 4024934, 52294127, 8326491, 0429535, 9642915 ####[facility] [address] [place] [address] Urea nitrogen/Creatinine [Mass ratio] 11 No Units Normal 10-20 [facility] Comment on above: Performed By: #### 2 247691, 0811030, 14915039, 1678903, 0179322, 6130028 ####[facility] [address] [place] [address] CT Abdomen/Pelvis w/o Contra ston 05-11-2023 CT Abdomen/Pelvis w/o Contrast Normal [facility] Consent for Treatmenton 04-16 Consent for Treatment [id number] 37#1.00TIFF Normal [facility] Discharge Instructionson Discharge Instructions [id number] 81#1.00TIFF Normal [facility] ED Clinical Summaryon 2023 ED Clinical Summary Normal Kirsty ahumada [facility] ED Note-Physicianon 05-11-19 ED Note-Physician Normal [facility] Comment on above: Result Comment: Elec tronically Signed By: Tiffani Cunningham PA-C\.br\Date and Time Signed: 05/11/23 17:06 EDT\.br\Electronically Co-Signed By: Mateusz Garcia DO\.br\Date and Time Co-Signed: 05/11/23 20:41 EDT ED Patient Education Noteon 05-11-2023 ED Patient Education Note Normal [facility] ED Patient Summaryon ED Patient Summary Normal [facility] HEMATOLOGYOrdered By: SYSTEM SYSTEM on 05-11-2023 [...] Lactic Acid Lvl 0.6 mmol/L Normal 0.5-2.2 [facility] Comment on above: Performed By: #### 2 349787, 3293975, 01660169, 2398641, 9385233, 8334276 ####[facility] [address] [place] [address] Lipase Levelon 05-11-2023 Lipase [Catalytic activity/Vol] 34 U/L Normal 13-58 [facility] Comment on above: Performed By: #### 2 511605, 2427827, 21636391, 9463767, 8822912, 0734994 ####[facility] [address] [place] [address] Magnesiumon 05-11-2023 Magnesium [Mass/Vol] 2.1 mg/dL Normal 1.3-2.4 [facility] Comment on above: Performed By: #### 2 901625, 8130381, 69054849, 2820842, 1802461, 8886690 ####[facility] [address] [place] [address] SEROLOGYOrdered By: Olga Meng on 05-11-2023 HCG.beta subunit (U) [Moles/Vol] Negative Normal [facility] Man Sero U BetaHcg Qualon 05-11-2023 HCG.beta subunit (U) [Moles/Vol] Negative Normal [facility] Comment on above: Performed By: #### 4 816909577, 98070119 ####[facility] [address] [place] [address] U Drug Screenon 05-11-2023 Amphetamines Screen method >1000 ng/mL Ql (U) Negative Normal NEGATIVE [facility] Comment on above: Result Comment: Nega tive Cutoff: <1000 ng/mL Performed By: #### 2 520658 ####[facility] [address] [place] [address] Barbiturates Screen Ql (U) Negative Normal NEGATIVE [facility] Comment on above: Result Comment: Nega tive Cutoff: <200 ng/mL Performed By: #### 2 699194 ####[facility] [address] [place] [address] Benzodiazepines Ql (U) Negative Normal NEGATIVE [facility] Comment on above: Result Comment: Nega tive Cutoff: <200 ng/mL Performed By: #### 2 471865 ####[facility] [address] [place] [address] Cannabinoids Screen Ql (U) Positive Abnormal NEGATIVE [facility] Comment on above: Result Comment: No C onfirmation Requested by PhysicianResult Verified by Repeat AnalysisUnconfirmed by an Alternate Methodcalled to Maribel Ortega by at 1404Negative Cutoff: <50 ng/mL Performed By: #### 2 621000 ####[facility] [address] [place] [address] Cocaine Ql (U) Negative Normal NEGATIVE [facility] Comment on above: Result Comment: Nega tive Cutoff: <300 ng/mL Performed By: #### 2 881049 ####[facility] [address] [place] [address] Opiates Screen Ql (U) Positive Abnormal NEGATIVE [facility] Comment on above: Result Comment: No C onfirmation Requested by PhysicianResult Verified by Repeat AnalysisUnconfirmed by an Alternate Methodcalled to Maribel Ortega by [id number] Cutoff: <300 ng/mL Performed By: #### 2 821174 ####[facility] [address] [place] [address] Phencyclidine Screen method >25 ng/mL Ql (U) Negative Normal NEGATIVE [facility] Comment on above: Result Comment: Nega tive Cutoff: <25 ng/mLThese drug screen results are to be used for medical (i.e., treatment) purposes only. Unconfirmed drug screening results must not be used for non-medical purposes (e.g., employment testing, legal testing). Performed By: #### 2 068009 ####[address] [place] [address] UA with Cult Rflxon 05-11-19 24 Color (U) Light-Yellow Normal Yellow [facility] Comment on above: Result Comment: Micr oscopic readings are only performed on those samples that meet specific criteria set forth by [facility]. Performed By: #### 4 899451578, 21140968 ####[facility] [address] [place] [address] Glucose (U) [Mass/Vol] Negative Normal Negative [facility] Comment on above: Performed By: #### 4 792795951, 35608653 ####[facility] [address] [place] [address] Ketones Ql (U) Negative Normal Negative [facility] Comment on above: Performed By: #### 4 756917352, 47404750 ####[facility] [address] [place] [address] UA Blood Negative Normal Negative [facility] Comment on above: Performed By: #### 4 584786241, 15926618 ####[place] [address] [address] UA Clarity Clear Normal Clear [facility] Comment on above: Performed By: #### 4 914238873, 81419117 ####[address] [address] UA Leuk Est Negative Normal Negative [facility] Comment on above: Performed By: #### 4 818676094, 38175685 ####[address] [address] UA Nitrite Negative Normal Negative [facility] Comment on above: Performed By: #### 4 998845912, 64569808 ####[address] [address] UA pH 7.5 Invalid Interpretation Code 5.0-9.0 [facility] Comment on above: Performed By: #### 4 645701298, 66910310 ####[address] [address] UA Protein Negative Normal Negative [facility] Comment on above: Performed By: #### 4 464456566, 36515662 ####[address] [address] UA Spec Grav 1.010 Invalid Interpretation Code 1.005-1.030 [facility] Comment on above: Performed By: #### 4 509060638, 47087117 ####[address] [address] UA Urobilinogen Negative Normal Negative [facility] Comment on above: Performed By: #### 4 128162380, 37601247 ####[address] [address] Urobilinogen (U) [Mass/Vol] Negative Normal Negative [facility] Comment on above: Performed By: #### 4 453863291, 97026592 ####[address] [address] UA Spec Desc Clean Catch Normal [facility] Comment on above: Performed By: #### 4 708702703, 75603429 ####[facility] [address] [place] [address] URINALYSISOrdered By: SYSTEM SYSTEM on 05-11-2023 Color (U) Light-Yellow 3 (05/11/23 12:41 PM) Normal Yellow [facility] UA Auto SS Comment on above: Interpretive Data: M icroscopic readings are only performed on those samples that meet specific criteria set forth by [facility]. Glucose (U) [Mass/Vol] Negative Normal Negativemg/dL FT UA Auto SS Ketones Ql (U) Negative Normal Negativemg/dL FT UA Auto SS UA Blood Negative Normal Negativemg/dL FT UA Aut o SS UA Clarity Clear (05/11/23 12:41 PM) Normal Clear [facility] UA Auto SS UA Leuk Est Negative Normal NegativeLeu/uL FT UA A uto SS UA Nitrite Negative Normal Negativemg/dL FT UA Aut o SS UA pH 7.5 *NA* (05/11/23 12:41 PM) Invalid Interpretation Code 5.0 - 9.0 [facility] UA Auto SS UA Protein Negative Normal Negativemg/dL [facility] UA Aut o SS UA Spec Grav 1.010 *NA* (05/11/23 12:41 PM) Invalid Interpretation Code 1.005 - 1.030 [facility] UA Auto SS UA Urobilinogen Negative Normal Negativemg/dL FT U A Auto SS Urobilinogen (U) [Mass/Vol] Negative Normal Negativemg/dL FT UA Auto SS URINALYSISOrdered By: Tiffani Cunningham on 05-11-2023 UA Spec Desc Clean Catch (05/11/23 12:41 PM) Normal [facility] UA Auto SS eGFRon 05-11-2023 eGFR 99 mL/min/1.73 m2 Normal >=59 [facility] Comment on above: Order Comment: Order added by Discern Expert. Performed By: #### 2 994809, 9413998, 02362234, 7136943, 3692818, 5256579 ####[facility] [address] [place] [address] Ambulatory Visit Summaryon 0 05-10-2023 Ambulatory Visit Summary Normal [address] [place] [address] [place] [address]- \.br\ Medications\.br\ What How Much When Why [...] for choosing us for your care.\.br\ \.br\ [facility] CNPNon 05-10-2023 CNPN Normal [facility] Medicine Office/Clini c Noteon 05-10-2023 Family Medicine Office/Clinic Note Normal [facility] Comment on above: Result Comment: Elec tronically Signed By: Jaquan Paula\.br\Date and Time Signed: 05/10/23 14:35 EDT [facility] Record[facility] 2023 Home Health Records [id number] 80#1.00TIFF Normal [facility] Provider Letteron 05-10-2023 Provider Letter Normal [facility] B hCG Qualon 05-09-2023 Beta HCG ( test) Ql Negative Normal [facility] Comment on above: Performed By: #### 1 2475974, 15892864, 3868537, 1982364, 9669526, 6836134 ####[facility] [address] [place] [address] BMPon 05-09-2023 Anion gap [Moles/Vol] 12 mmol/L Normal 6-16 [facility] Comment on above: Performed By: #### 1 4274208, 58383527, 2426748, 8456860, 5126358, 5713262 ####[facility] [address] [place] [address] Calcium [Mass/Vol] 8.6 mg/dL Low 8.9-11.1 [facility] Comment on above: Performed By: #### 1 8380948, 15958827, 1666813, 8921188, 5713413, 2259058 ####[facility] [address] [place] [address] Chloride [Moles/Vol] 109 mmol/L Normal 101-111 [facility] Comment on above: Performed By: #### 1 8107210, 08401459, 5471381, 2844954, 0039231, 2160882 ####[facility] [address] [place] [address] CO2 [Moles/Vol] 23 mmol/L Normal 21-31 [facility] Comment on above: Performed By: #### 1 2110859, 88233745, 1481394, 0246890, 4015301, 1273367 ####[facility] [address] [place] [address] Creatinine [Mass/Vol] 0.8 mg/dL Normal 0.5-1.3 [facility] Comment on above: Performed By: #### 1 0096305, 50126791, 8536949, 2303720, 2962971, 6090878 ####[facility] [address] [place] [address] Glucose [Mass/Vol] 79 mg/dL Normal 55-199 [facility] Comment on above: Performed By: #### 1 5475265, 68534610, 3682359, 3309324, 0890542, 6094197 ####[facility] [address] [place] [address] Potassium [Moles/Vol] 3.9 mmol/L Normal 3.5-5.3 [facility] Comment on above: Performed By: #### 1 1041892, 52437838, 9805910, 6858195, 3388347, 4103370 ####[facility] [address] [place] [address] Sodium [Moles/Vol] 140 mmol/L Normal 135-145 [facility] Comment on above: Performed By: #### 1 5958711, 20043319, 6557412, 6868657, 7240747, 7862781 ####[facility] [address] [place] [address] Urea nitrogen [Mass/Vol] 9 mg/dL Normal 5-21 [facility] Comment on above: Performed By: #### 1 8085989, 34025925, 7245412, 4798646, 5022423, 1131031 ####[facility] [address] [place] [address] Urea nitrogen/Creatinine [Mass ratio] 11 No Units Normal 10-20 [facility] Comment on above: Performed By: #### 1 7222797, 51033050, 9575840, 4076953, 0752894, 3504954 ####[facility] [address] [place] [address] CBC w/ Auto Diffon 4 Basophils/100 WBC (Bld) 1.1 % Normal 0.0-2.0 [facility] Comment on above: Performed By: #### 1 9143729, 02964969, 9194113, 6698296, 0919006, 5564517 ####[address] [address] Basophils/Leukocyte s Auto (Bld) [Pure # fraction] 0.0 E9/L Normal 0.0-0.2 [facility] Comment on above: Performed By: #### 1 2685330, 01564564, 3908175, 4467479, 8640763, 2177145 ####[address] [address] Eosinophils (Bld) [#/Vol] 0.1 E9/L Normal 0.0-0.5 [facility] Comment on above: Performed By: #### 1 2677562, 46520750, 4381473, 0193528, 9142965, 2655279 ####[address] [address] Eosinophils/100 WBC (Bld) 2.1 % Normal 0.0-8.0 [facility] Comment on above: Performed By: #### 1 6657212, 16552429, 0084683, 7013561, 0593469, 6927443 ####[address] [address] Erythrocyte distribution width (RBC) [Ratio] 14.4 % High 10.9-14.2 [facility] Comment on above: Performed By: #### 1 8488441, 68893177, 6471086, 7010808, 0837384, 9905162 ####[address] [address] Hematocrit (Bld) [Volume fraction] 36.3 % Normal 34.0-46.0 [facility] Comment on above: Performed By: #### 1 8030826, 00596949, 9533929, 1766174, 7043660, 2909891 ####[address] [address] Hemoglobin (Bld) [Mass/Vol] 12.3 g/dL Normal 12.0-16.0 [facility] Comment on above: Performed By: #### 1 1953682, 56320897, 8040061, 3765150, 6175083, 8091962 ####[address] [address] Lymphocytes (Bld) [#/Vol] 1.2 E9/L Normal 1.0-4.0 [facility] Comment on above: Performed By: #### 1 0444905, 83090630, 9364265, 2665910, 7183212, 3701366 ####[address] [address] Lymphocytes/100 WBC (Bld) 42.2 % Normal 14.0-50.0 [facility] Comment on above: Performed By: #### 1 4718320, 26163488, 9180497, 3544445, 9477965, 7580862 ####[place] [address] MCH (RBC) [Entitic mass] 30.2 pg Normal 27.0-34.0 [facility] Comment on above: Performed By: #### 1 5757628, 01915390, 7695081, 1587652, 4377596, 5732197 ####[address] [address] MCHC (RBC) [Mass/Vol] 33.9 g/dL Normal 31.4-36.0 [facility] Comment on above: Performed By: #### 1 4871466, 53514826, 4934790, 3447136, 9060491, 1097292 ####[address] [address] MCV (RBC) [Entitic vol] 89.2 fL Normal 80.0-100.0 [facility] Comment on above: Performed By: #### 1 6371108, 48043040, 9799915, 3124474, 1982515, 5589065 ####[address] [address] Monocytes (Bld) [#/Vol] 0.3 E9/L Normal 0.2-1.0 [facility] Comment on above: Performed By: #### 1 2656591, 53104467, 1124277, 3295003, 0411760, 5138989 ####[address] [place] [address] Neutrophils (Bld) [#/Vol] 1.2 E9/L Low 2.0-7.5 [facility] Comment on above: Performed By: #### 1 5957777, 90514511, 3818953, 2433428, 5313530, 2263367 ####[address] [place] [address] Neutrophils/100 WBC (Bld) 44.3 % Normal 36.0-75.0 [facility] Comment on above: Performed By: #### 1 2371311, 80822462, 2884429, 1925899, 2642617, 7398634 ####[address] [address] Platelet 201.0 E9/L Normal 150.0-500.0 [facility] [facility] Comment on above: Performed By: #### 1 [id number], 21301033, 0317489, 1439305, 0121146, 1880575 ####[address] [address] Platelet mean volume (Bld) [Entitic vol] 9.8 fL Normal 6.4-10.8 [facility] Comment on above: Performed By: #### 1 0331130, 21293077, 4444083, 5068883, 6705742, 9062087 ####[address] [place] [address] RBC (Bld) [#/Vol] 4.1 E12/L Low 4.3-5.9 [facility] Comment on above: Performed By: #### 1 7634088, 01186267, 4510884, 1451451, 9127612, 6822278 ####[address] [place] [address] WBC corrected for nucl RBC Auto (Bld) [#/Vol] 2.8 E9/L Low 4.0-11.0 [facility] Comment on above: Performed By: #### 1 5015755, 42934711, 2673364, 7306914, 5310110, 5082748 ####[facility] [address] [place] [address] CHEMISTRYOrdered By: SYSTEM SYSTEM on 05-09-2023 Albumin [...] for Treatmenton 04-16 Consent for Treatment [id number] E0#1.00TIFF Normal [facility] Discharge Instructionson Discharge Instructions [id number] 14#1.00TIFF Normal [facility] ED Clinical Summaryon 2023 ED Clinical Summary Normal [facility] ED Note-Nursingon 05-09-2023 ED Note-Nursing Discharge materials given, wheeled patient out. Home with family care. Normal [facility] ED Note-Physicianon 05-09-19 ED Note-Physician Normal [facility] Comment on above: Result Comment: Elec tronically Signed By: Lonnie Rios PA-C\.br\Date and Time Signed: 05/09/23 15:52 EDT\.br\Electronically Co-Signed By: Mateusz Garcia DO.br\Date and Time Co-Signed: 05/09/23 17:19 EDT ED Patient Education Noteon 05-09-2023 ED Patient Education Note Normal [facility] ED Patient Summaryon 024 ED Patient Summary Normal [facility] HEMATOLOGYOrdered By: SYSTEM SYSTEM on 05-09-2023 [...] 05-09-2023 Albumin [Mass/Vol] 4.3 g/dL Normal 3.3-5.0 [facility] Comment on above: Performed By: #### 1 6378826, 75792923, 6611405, 5980118, 3845367, 7191839 ####[facility] [address] [place] [address] Albumin/Globulin (S) [Mass conc ratio] 1.8 Normal 1.1-2.2 [facility] Comment on above: Performed By: #### 1 9040523, 49497051, 9147751, 3080318, 6884047, 1576991 ####[facility] [address] [place] [address] ALP [Catalytic activity/Vol] 51 Int._Unit/L Normal 21-98 [facility] Comment on above: Performed By: #### 1 1383439, 90999954, 4774552, 8033631, 5312571, 7635283 ####[facility] [address] [place] [address] ALT No additional P-5'-P [Catalytic activity/Vol] 15 Int._Unit/L Normal 6-46 [facility] Comment on above: Performed By: #### 1 9737412, 78912370, 3899218, 5661057, 6515933, 3958165 ####[facility] [address] [place] [address] AST [Catalytic activity/Vol] 26 Int._Unit/L Normal 5-43 [facility] Comment on above: Performed By: #### 1 1716755, 94913932, 5567191, 7717698, 9418719, 8047531 ####[facility] [address] [place] [address] Bilirubin [Mass/Vol] 0.3 mg/dL Normal 0.0-1.1 [facility] Comment on above: Performed By: #### 1 7729099, 53994296, 3281482, 4201506, 8547134, 6931870 ####[facility] [address] [place] [address] Bilirubin.direct [Mass/Vol] 0.1 mg/dL Normal 0.0-0.4 [facility] Comment on above: Performed By: #### 1 1443530, 90033659, 8527960, 5519111, 8971512, 4818622 ####[facility] [address] [place] [address] Bilirubin.indirect [Mass or moles/Vol] 0.2 mg/dL Normal 0.1-0.9 [facility] Comment on above: Performed By: #### 1 2893087, 94827461, 3264885, 8356851, 2264806, 8865153 ####[address] [address] Globulin (S) [Mass/Vol] 2.4 g/dL Normal 1.4-4.0 [facility] Comment on above: Performed By: #### 1 6321828, 37326592, 4733714, 4904650, 8538292, 6304269 ####[address] [address] Protein [Mass/Vol] 6.7 g/dL Normal 6.0-7.8 [facility] Comment on above: Performed By: #### 1 3374582, 99408703, 6161956, 5401178, 9348354, 8934020 ####[address] [place] [address] Lipase Levelon 05-09-2023 Lipase [Catalytic activity/Vol] 68 U/L High 13-58 [facility] Comment on above: Performed By: #### 1 7825910, 99055801, 3495070, 8925662, 1430330, 8317883 ####[address] [address] SEROLOGYOrdered By: Stacia Arroyo on 05-09-2023 Beta HCG ( test) Ql Negative (05/09/23 12:12 PM) Normal [facility] eGFRon 05-09-2023 eGFR 99 mL/min/1.73 m2 Normal >=59 [facility] Comment on above: Order Comment: Order added by Discern Expert. Performed By: #### 1 2549425, 87658983, 7423175, 2686065, 9028226, 5708653 ####[facility] [address] [place] [address] CNPNon 05-07-2023 CNPN Normal [facility] ED Note-Physicianon 05-07-19 ED Note-Physician Normal [facility] Comment on above: Result Comment: Elec tronically Signed By: Justine German PA-C\.br\Date and Time Signed: 05/06/23 21:25 EDT\.br\Electronically Co-Signed By: Mateusz Garcia DO\.br\Date and Time Co-Signed: 05/07/23 07:00 EDT Amylaseon 05-06-2023 Amylase [Catalytic activity/Vol] 40 U/L Normal 25-157 [facility] Comment on above: Order Comment: pt wa s poked once, pt extremely dehydrated and would like to wait for IV start ilc150 05/06/2023 16:33:00 EDT Performed By: #### 2 130912, 2361855, 6567106, 4348357, 40672335, 2769645, 5254053 ####[facility] [address] [place] [address] BMPon 05-06-2023 Anion gap [Moles/Vol] 13 mmol/L Normal 6-16 [facility] Comment on above: Order Comment: pt wa s poked once, pt extremely dehydrated and would like to wait for IV start [id number] 05/06/2023 16:33:00 EDT Performed By: #### 2 770315, 5932253, 8189166, 0793508, 47335588, 3365120, 5017831 ####[facility] [address] [place] [address] Calcium [Mass/Vol] 9.1 mg/dL Normal 8.9-11.1 [facility] Comment on above: Order Comment: pt lillian barber poked once, pt extremely dehydrated and would like to wait for IV start [id number] 05/06/2023 16:33:00 EDT Performed By: #### 2 805345, 8544777, 3684148, 9020142, 07717506, 9908796, 6452926 ####[facility] [address] [place] [address] Chloride [Moles/Vol] 107 mmol/L Normal 101-111 [facility] Comment on above: Order Comment: pt lillian barber poked once, pt extremely dehydrated and would like to wait for IV start [id number] 05/06/2023 16:33:00 EDT Performed By: #### 2 697463, 5579934, 1697318, 7535315, 74937480, 8999647, 5942367 ####[facility] [address] [place] [address] CO2 [Moles/Vol] 22 mmol/L Normal 21-31 [facility] Comment on above: Order Comment: pt lillian barber poked once, pt extremely dehydrated and would like to wait for IV start [id number] 05/06/2023 16:33:00 EDT Performed By: #### 2 375474, 6964425, 9298125, 3913689, 63250400, 1765110, 8840871 ####[facility] [address] [place] [address] Creatinine [Mass/Vol] 0.8 mg/dL Normal 0.5-1.3 [facility] Comment on above: Order Comment: pt lillian barber poked once, pt extremely dehydrated and would like to wait for IV start [id number] 05/06/2023 16:33:00 EDT Performed By: #### 2 700751, 3012811, 8706802, 9273017, 02011641, 7417701, 2790996 ####[facility] [address] [place] [address] Glucose [Mass/Vol] 80 mg/dL Normal 55-199 [facility] Comment on above: Order Comment: pt lillian barber poked once, pt extremely dehydrated and would like to wait for IV start [id number] 05/06/2023 16:33:00 EDT Performed By: #### 2 462851, 3109756, 0130528, 6018039, 01347390, 8338968, 2332018 ####[facility] [address] [place] [address] Potassium [Moles/Vol] 3.7 mmol/L Normal 3.5-5.3 [facility] Comment on above: Order Comment: pt lillian barber poked once, pt extremely dehydrated and would like to wait for IV start [id number] 05/06/2023 16:33:00 EDT Performed By: #### 2 887508, 2602964, 6327798, 7028766, 17813745, 1537825, 2554289 ####[facility] [address] [place] [address] Sodium [Moles/Vol] 138 mmol/L Normal 135-145 [facility] Comment on above: Order Comment: pt lillian barber poked once, pt extremely dehydrated and would like to wait for IV start [id number] 05/06/2023 16:33:00 EDT Performed By: #### 2 785410, 5172280, 0174398, 4009213, 07166123, 8449352, 0633102 ####[facility] [address] [place] [address] Urea nitrogen [Mass/Vol] 10 mg/dL Normal 5-21 [facility] Comment on above: Order Comment: pt lillian barber poked once, pt extremely dehydrated and would like to wait for IV start ore010 05/06/2023 16:33:00 EDT Performed By: #### 2 348482, 4514539, 0802854, 1293302, 36393093, 0601349, 9288376 ####[facility] [address] [place] [address] Urea nitrogen/Creatinine [Mass ratio] 12 No Units Normal 10-20 [facility] Comment on above: Order Comment: pt lillian barber poked once, pt extremely dehydrated and would like to wait for IV start [id number] 05/06/2023 16:33:00 EDT Performed By: #### 2 722264, 7817215, 1934961, 0730044, 53773899, 8069461, 3412937 ####[facility] [address] [place] [address] CBC w/ Auto Diffon 4 Basophils/100 WBC (Bld) 1.1 % Normal 0.0-2.0 [facility] Comment on above: Order Comment: pt lillian barber poked once, pt extremely dehydrated and would like to wait for IV start dak000 05/06/2023 16:33:00 EDT Performed By: #### 2 546133, 3985454, 0897388, 5083838, 90558524, 5650511, 3822210 ####[facility] [address] [place] [address] Basophils/Leukocyte s Auto (Bld) [Pure # fraction] 0.0 E9/L Normal 0.0-0.2 [facility] Comment on above: Order Comment: pt lillian barber poked once, pt extremely dehydrated and would like to wait for IV start got097 05/06/2023 16:33:00 EDT Performed By: #### 2 755344, 3009248, 8596207, 0743759, 45588796, 2643305, 2702216 ####[facility] [address] [place] [address] Eosinophils (Bld) [#/Vol] 0.1 E9/L Normal 0.0-0.5 [facility] Comment on above: Order Comment: pt lillian barber poked once, pt extremely dehydrated and would like to wait for IV start pzi306 05/06/2023 16:33:00 EDT Performed By: #### 2 189261, 9594848, 4247965, 2852458, 39847285, 4379021, 9897243 ####[facility] [address] [place] [address] Eosinophils/100 WBC (Bld) 1.5 % Normal 0.0-8.0 [facility] Comment on above: Order Comment: pt wa s poked once, pt extremely dehydrated and would like to wait for IV start [id number] 05/06/2023 16:33:00 EDT Performed By: #### 2 534390, 6105065, 9303220, 3367051, 62039045, 0698455, 5458479 ####[facility] [address] [place] [address] Erythrocyte distribution width (RBC) [Ratio] 14.1 % Normal 10.9-14.2 [facility] Comment on above: Order Comment: pt wa s poked once, pt extremely dehydrated and would like to wait for IV start zow304 05/06/2023 16:33:00 EDT Performed By: #### 2 405348, 4084277, 3976416, 2943252, 79228885, 9706020, 5272332 ####[facility] [address] [place] [address] Hematocrit (Bld) [Volume fraction] 37.9 % Normal 34.0-46.0 [facility] Comment on above: Order Comment: pt wa s poked once, pt extremely dehydrated and would like to wait for IV start tnu210 05/06/2023 16:33:00 EDT Performed By: #### 2 053772, 1424269, 4492231, 5009574, 07322148, 0745501, 6880288 ####[facility] [address] [place] [address] Hemoglobin (Bld) [Mass/Vol] 12.9 g/dL Normal 12.0-16.0 [facility] Comment on above: Order Comment: pt wa s poked once, pt extremely dehydrated and would like to wait for IV start npo390 05/06/2023 16:33:00 EDT Performed By: #### 2 156120, 9486978, 9454833, 2503953, 14449767, 1599974, 2821542 ####[facility] [address] [place] [address] Lymphocytes (Bld) [#/Vol] 1.4 E9/L Normal 1.0-4.0 [facility] Comment on above: Order Comment: pt wa s poked once, pt extremely dehydrated and would like to wait for IV start lxp617 05/06/2023 16:33:00 EDT Performed By: #### 2 957115, 6418402, 1381053, 9359488, 39836701, 1033993, 4129076 ####[facility] [address] [place] [address] Lymphocytes/100 WBC (Bld) 33.8 % Normal 14.0-50.0 [facility] Comment on above: Order Comment: pt wa s poked once, pt extremely dehydrated and would like to wait for IV start rth653 05/06/2023 16:33:00 EDT Performed By: #### 2 486973, 9269602, 8405074, 8479141, 28511421, 5570041, 0340393 ####[facility] [address] [place] [address] MCH (RBC) [Entitic mass] 30.3 pg Normal 27.0-34.0 [facility] Comment on above: Order Comment: pt wa s poked once, pt extremely dehydrated and would like to wait for IV start xxr162 05/06/2023 16:33:00 EDT Performed By: #### 2 328091, 0300641, 3310858, 7913729, 05548847, 7032347, 9355882 ####[facility] [address] [place] [address] MCHC (RBC) [Mass/Vol] 34.1 g/dL Normal 31.4-36.0 [facility] Comment on above: Order Comment: pt wa s poked once, pt extremely dehydrated and would like to wait for IV start oes258 05/06/2023 16:33:00 EDT Performed By: #### 2 297054, 3050158, 0076405, 6032081, 49028108, 5783357, 8181441 ####[facility] [address] [place] [address] MCV (RBC) [Entitic vol] 88.8 fL Normal 80.0-100.0 [facility] Comment on above: Order Comment: pt wa s poked once, pt extremely dehydrated and would like to wait for IV start opu636 05/06/2023 16:33:00 EDT Performed By: #### 2 569578, 0316904, 1983478, 5295334, 42809535, 4821937, 2469933 ####[facility] [address] [place] [address] Monocytes (Bld) [#/Vol] 0.3 E9/L Normal 0.2-1.0 [facility] Comment on above: Order Comment: pt wa s poked once, pt extremely dehydrated and would like to wait for IV start [id number] 05/06/2023 16:33:00 EDT Performed By: #### 2 044204, 6425062, 4100749, 3741947, 18079749, 9109198, 9214988 ####[facility] [address] [place] [address] Neutrophils (Bld) [#/Vol] 2.3 E9/L Normal 2.0-7.5 [facility] Comment on above: Order Comment: pt wa s poked once, pt extremely dehydrated and would like to wait for IV start rjh576 05/06/2023 16:33:00 EDT Performed By: #### 2 642895, 0628550, 3752052, 8901891, 47727607, 4339768, 3022570 ####[facility] [address] [place] [address] Neutrophils/100 WBC (Bld) 56.4 % Normal 36.0-75.0 [facility] Comment on above: Order Comment: pt wa s poked once, pt extremely dehydrated and would like to wait for IV start qqx505 05/06/2023 16:33:00 EDT Performed By: #### 2 875694, 2369663, 6751191, 0407017, 80387379, 1207292, 6658467 ####[facility] [address] [place] [address] Platelet mean volume (Bld) [Entitic vol] 9.2 fL Normal 6.4-10.8 [facility] Comment on above: Order Comment: pt wa s poked once, pt extremely dehydrated and would like to wait for IV start mzs929 05/06/2023 16:33:00 EDT Performed By: #### 2 364021, 0988869, 0939115, 0458546, 17633214, 3719097, 9892203 ####[address] [address] Platelets (Bld) [#/Vol] 192.0 E9/L Normal 150.0-500.0 [facility] Comment on above: Order Comment: pt wa s poked once, pt extremely dehydrated and would like to wait for IV start [id number] 05/06/2023 16:33:00 EDT Performed By: #### 2 060531, 6105440, 6474107, 5871101, 85525680, 0609418, 0613306 ####[address] [address] RBC (Bld) [#/Vol] 4.3 E12/L Normal 4.3-5.9 [facility] Comment on above: Order Comment: pt wa s poked once, pt extremely dehydrated and would like to wait for IV start [id number] 05/06/2023 16:33:00 EDT Performed By: #### 2 879437, 1774081, 9292522, 3934911, 66435573, 3549266, 5535592 ####[address] [address] WBC corrected for nucl RBC Auto (Bld) [#/Vol] 4.1 E9/L Normal 4.0-11.0 [facility] Comment on above: Order Comment: pt wa s poked once, pt extremely dehydrated and would like to wait for IV start kmi244 05/06/2023 16:33:00 EDT Performed By: #### 2 630669, 0134638, 4234247, 8881264, 38569202, 5921615, 7438566 ####[facility] [address] [place] [address] CHEMISTRYOrdered By: SYSTEM SYSTEM on 05-06-2023 Albumin [...] for Treatmenton 04-16 Consent for Treatment [id number] 11#1.00TIFF Normal [facility] Discharge Instructionson Discharge Instructions [id number] 616#1.00TIFF Normal [facility] ED Clinical Summaryon 2023 ED Clinical Summary Normal [facility] ED Patient Education Noteon 05-06-2023 ED Patient Education Note Normal [facility] ED Patient Summaryon 024 ED Patient Summary Normal [facility] HEMATOLOGYOrdered By: SYSTEM SYSTEM on 05-06-2023 [...] 05-06-2023 Albumin [Mass/Vol] 4.6 g/dL Normal 3.3-5.0 [facility] Comment on above: Order Comment: pt wa s poked once, pt extremely dehydrated and would like to wait for IV start emw857 05/06/2023 16:33:00 EDT Performed By: #### 2 549955, 7610135, 0516769, 0714563, 06909291, 1968124, 2628100 ####[facility] [address] [place] [address] Albumin/Globulin (S) [Mass conc ratio] 1.8 Normal 1.1-2.2 [facility] Comment on above: Order Comment: pt wa s poked once, pt extremely dehydrated and would like to wait for IV start [id number] 05/06/2023 16:33:00 EDT Performed By: #### 2 354115, 6882716, 0259984, 3647536, 30151531, 4738935, 3126769 ####[address] [address] ALP [Catalytic activity/Vol] 56 Int._Unit/L Normal 21-98 [facility] Comment on above: Order Comment: pt wa s poked once, pt extremely dehydrated and would like to wait for IV start [id number] 05/06/2023 16:33:00 EDT Performed By: #### 2 557065, 7253529, 2229858, 8044914, 17090635, 6115736, 2251809 ####[facility] [address] [place] [address] ALT No additional P-5'-P [Catalytic activity/Vol] 14 Int._Unit/L Normal 6-46 [facility] Comment on above: Order Comment: pt wa s poked once, pt extremely dehydrated and would like to wait for IV start ras624 05/06/2023 16:33:00 EDT Performed By: #### 2 559884, 7224126, 1711226, 9431120, 49831689, 9066307, 0021197 ####[facility] [address] [place] [address] AST [Catalytic activity/Vol] 25 Int._Unit/L Normal 5-43 [facility] Comment on above: Order Comment: pt wa s poked once, pt extremely dehydrated and would like to wait for IV start unn543 05/06/2023 16:33:00 EDT Performed By: #### 2 259257, 8795378, 7485044, 4112963, 31839563, 9059352, 4934060 ####[facility] [address] [place] [address] Bilirubin [Mass/Vol] 0.5 mg/dL Normal 0.0-1.1 [facility] Comment on above: Order Comment: pt wa s poked once, pt extremely dehydrated and would like to wait for IV start poa427 05/06/2023 16:33:00 EDT Performed By: #### 2 474830, 2493395, 3027243, 1549137, 94918408, 9370940, 4917330 ####[facility] [address] [place] [address] Bilirubin.direct [Mass/Vol] 0.1 mg/dL Normal 0.0-0.4 [facility] Comment on above: Order Comment: pt wa s poked once, pt extremely dehydrated and would like to wait for IV start [id number] 05/06/2023 16:33:00 EDT Performed By: #### 2 020670, 6257483, 1993216, 3288327, 97609982, 3996938, 3070364 ####[facility] [address] [place] [address] Bilirubin.indirect [Mass or moles/Vol] 0.4 mg/dL Normal 0.1-0.9 [facility] Comment on above: Order Comment: pt wa s poked once, pt extremely dehydrated and would like to wait for IV start clv489 05/06/2023 16:33:00 EDT Performed By: #### 2 387100, 5820890, 1444919, 9481034, 71620155, 7740688, 9888181 ####[facility] [address] [place] [address] Globulin (S) [Mass/Vol] 2.5 g/dL Normal 1.4-4.0 [facility] Comment on above: Order Comment: pt lillian s poked once, pt extremely dehydrated and would like to wait for IV start [id number] 05/06/2023 16:33:00 EDT Performed By: #### 2 313471, 0155010, 6255087, 4456388, 56302132, 6389204, 3611651 ####[facility] [address] [place] [address] Protein [Mass/Vol] 7.1 g/dL Normal 6.0-7.8 [facility] Comment on above: Order Comment: pt lillian s poked once, pt extremely dehydrated and would like to wait for IV start szu973 05/06/2023 16:33:00 EDT Performed By: #### 2 138620, 3144809, 1110754, 6178263, 57449176, 8108678, 6759982 ####[facility] [address] [place] [address] Lactic Acidon 05-06-2023 Lactic Acid Lvl 0.7 mmol/L Normal 0.5-2.2 [facility] Comment on above: Order Comment: pt lillian s poked once, pt extremely dehydrated and would like to wait for IV start fnq176 05/06/2023 16:33:00 EDT Performed By: #### 2 526100, 7046190, 2156045, 7427193, 62005743, 7883180, 8462979 ####[facility] [address] [place] [address] Lipase Levelon 05-06-2023 Lipase [Catalytic activity/Vol] 62 U/L High 13-58 [facility] Comment on above: Order Comment: pt lillian s poked once, pt extremely dehydrated and would like to wait for IV start bvm104 05/06/2023 16:33:00 EDT Performed By: #### 2 128107, 5213449, 1706774, 7187226, 81419040, 3746911, 6682550 ####[facility] [address] [place] [address] Monitor Recordon 05-06-2023 Monitor Record [id number] 932#1.00TIFF Normal [facility] Monitor Record [id number] 260#1.00TIFF Normal [facility] Monitor Record [id number] 669#1.00TIFF Normal [facility] Monitor Record [id number] 349#1.00TIFF Normal [facility] eGFRon 05-06-2023 eGFR 99 mL/min/1.73 m2 Normal >=59 [facility] Comment on above: Order Comment: Order added by Discern Expert. Performed By: #### 2 340147, 4693929, 3375587, 4505116, 43130086, 9389794, 4218594 ####[facility] [address] [place] [address] ED Note-Physicianon 04-07-19 24 ED Note-Physician [id number] 6D#1.00TIFF [facility] Alanine aminotransferase [En zymatic activity/volume] in Serum or PlasmaOrdered By: Trace Leosimore on 04-06-2023 ALT [Catalytic activity/Vol] 21 U/L Normal 7-52 [facility] Comment on above: Performed By: #### C BC, BMP, HEPATIC, LIPASE #### [facility] [id number] [facility] Albumin [Mass/volume] in Ser um or Plasma by Bromocresol green (BCG) dye binding methoOrdered By: Trace Bullimore on 04-06-2023 Albumin BCG dye [Mass/Vol] 4.5 g/dL 3.5-5.7 [facility] Alkaline phosphatase [Enzyma tic activity/volume] in Serum or PlasmaOrdered By: Trace Bullimore on 04-06-2023 ALP [Catalytic activity/Vol] 48 U/L Normal 34-104 [facility] Comment on above: Performed By: #### C BC, BMP, HEPATIC, LIPASE #### [address] Amylase [Enzymatic activity/ volume] in Serum or PlasmaOrdered By: Trace Beverley on 04-06-2023 Amylase [Catalytic activity/Vol] 48 U/L Normal 29-103 [facility] Comment on above: Performed By: #### C BC, BMP, HEPATIC, LIPASE #### [address] Aspartate aminotransferase [ Enzymatic activity/volume] in Serum or PlasmaOrdered By: Trace Bullimore on 04-06-2023 AST [Catalytic activity/Vol] 28 U/L Normal 13-39 [facility] Comment on above: Performed By: #### C BC, BMP, HEPATIC, LIPASE #### [address] Automated basophil %Ordered By: Trace Lowery on 04-06-2023 Basophils/100 WBC (Bld) 1.0 % Normal . [facility] Comment on above: Performed By: #### C BC, BMP, HEPATIC, LIPASE #### [address] Automated basophil countOrde red By: Trace Lowery on 04-06-2023 Basophils (Bld) [#/Vol] 0.0 10*3/uL Normal 0.0-0.2 [facility] Comment on above: Result Comment: PERF ORMED BY: [place] [address] PATHOLOGIST [employer]PERATIONS ASSISTANT BAUTISTA BAKER M.D. Performed By: #### C BC, BMP, HEPATIC, LIPASE #### [address] Automated blood monocyte cou ntOrdered By: Trace Lowery on 04-06-2023 Monocytes (Bld) [#/Vol] 0.3 10*3/uL Normal 0.0-0.8 [facility] Comment on above: Performed By: #### C BC, BMP, HEPATIC, LIPASE #### [facility] [address] Automated eosinophil %Ordere d By: Trace Jannyore on 04-06-2023 Eosinophils/100 WBC (Bld) 3.1 % Normal . [facility] Comment on above: Performed By: #### C BC, BMP, HEPATIC, LIPASE #### [address] Automated eosinophil countOr dered By: Trace Beverley on 04-06-2023 Eosinophils (Bld) [#/Vol] 0.1 10*3/uL Normal 0.0-0.45 [facility] Comment on above: Performed By: #### C BC, BMP, HEPATIC, LIPASE #### [address] Automated erythrocytes count in urine sediment (number/area)Ordered By: Trace Leosimore on 04-06-2023 RBC Auto (Urine sed) [#/Area] 1-2 [HPF] 0-4 [facility] Automated leukocytes count i n urine sediment (number/area)Ordered By: Trace Dericimore on 04-06-2023 WBC Auto (Urine sed) [#/Area] 3-4 [HPF] 0-4 [facility] Automated monocyte %Ordered By: Trace Leosneto on 04-06-2023 Monocytes/100 WBC (Bld) 6.7 % Normal . [facility] Comment on above: Performed By: #### C BC, BMP, HEPATIC, LIPASE #### [address] Automated neutrophil %Ordere d By: Trace Dericimore on 04-06-2023 Neutrophils/100 WBC (Bld) 51.6 % Normal . [facility] Comment on above: Performed By: #### C BC, BMP, HEPATIC, LIPASE #### [address] Automated urine color determ inationOrdered By: Trace Lowery on 04-06-2023 Color (U) Yellow Normal Yellow [facility] Comment on above: Order Comment: Name Collection Type:: Clean-Voided Midstream Performed By: #### C BC, BMP, HEPATIC, LIPASE #### [facility] [address] Basic Metabolic Panelon 03-19 Creatinine Clr Calc Pharmacy 98.98 Normal [facility] Comment on above: Performed By: #### C BC, BMP, HEPATIC, LIPASE #### [facility] [address] GFR/1.73 sq M.predicted MDRD (S/P/Bld) [Vol rate/Area] mL/min/{1.73_m2} Normal [facility] Comment on above: Performed By: #### C BC, BMP, HEPATIC, LIPASE #### [facility] [address] Bilirubin Test strip Ql (U)O rdered By: Trace Lowery on 04-06-2023 Bilirubin Ql (U) Negative Negative [facility] Bilirubin.direct [Mass/volum e] in Serum or PlasmaOrdered By: Trace Lowery on 04-06-2023 Bilirubin.direct [Mass/Vol] 0.10 mg/dL 0.03-0.18 [facility] Bilirubin.total [Mass/volume ] in Serum or PlasmaOrdered By: Trace Lowery on 04-06-2023 Bilirubin [Mass/Vol] 0.4 mg/dL Normal 0.3-1.0 [facility] Comment on above: Performed By: #### C BC, BMP, HEPATIC, LIPASE #### [facility] [address] [place] [address] CT abdomen pelvis w conon CT abdomen pelvis [place] [facility] [place] [address] CT Scan Report Signed Patient: Abbey Garcia MR#: [id number] : 1990 Acct:[id number] Age/Sex: 33 / F ADM Date: 04/06/23 Loc: ER Room: Type: [facility] ER Attending Dr: Copies to: AGA [...] Maricruz Hutchinson M.D.04/06/2023 1:50 PM Dictation Location: [place] [address] Transcribed By: SULEMA 04/06/23 1350 Dictated By: Maricruz Hutchinson MD 04/06/23 1341 Signed By: 04/06/23 1350 Normal [facility] Calcium [Mass/volume] in Ser um or PlasmaOrdered By: Trace Lowery on 04-06-2023 Calcium [Mass/Vol] 9.1 mg/dL Normal 8.6-10.3 [facility] Comment on above: Performed By: #### C BC, BMP, HEPATIC, LIPASE #### [facility] [address] [place] [address] Carbon dioxide, total [Moles /volume] in Serum or PlasmaOrdered By: Trace Lowery on 04-06-2023 CO2 [Moles/Vol] 23.3 mmol/L Normal 21.0-31.0 [facility] Comment on above: Performed By: #### C BC, BMP, HEPATIC, LIPASE #### [address] Chloride [Moles/volume] in S elder or PlasmaOrdered By: Trace Leosimlaurel on 04-06-2023 Chloride [Moles/Vol] 109 mmol/L High 98-107 [facility] Comment on above: Performed By: #### C BC, BMP, HEPATIC, LIPASE #### [address] Complete Blood Count Auto Di ffon 04-06-2023 Mean Corpuscular HGB Conc 34.2 g/dL Normal 32.0-35.0 [facility] Comment on above: Performed By: #### C BC, BMP, HEPATIC, LIPASE #### [address] Monocytes/100 WBC (Bld) 15.98 % Normal 0.00-20.00 [facility] Comment on above: Performed By: #### C BC, BMP, HEPATIC, LIPASE #### [address] NRBC% 0.1 /100{WBC} Normal 0-0.5 [facility] Comment on above: Performed By: #### C BC, BMP, HEPATIC, LIPASE #### [address] Creatinine [Mass/volume] in Serum or PlasmaOrdered By: Trace Lowery on 04-06-2023 Creatinine [Mass/Vol] 0.86 mg/dL Normal 0.60-1.20 [facility] Comment on above: Performed By: #### C BC, BMP, HEPATIC, LIPASE #### [address] Dipstick and Microscopicon 0 04-06-2023 Appearance (U) Cloudy Critically abnormal Clear [facility] Comment on above: Order Comment: Name Collection Type:: Clean-Voided Midstream Performed By: #### C BC, BMP, HEPATIC, LIPASE #### [address] Bacteria,Urine None Seen Normal None Seen [facility] Comment on above: Order Comment: Name Collection Type:: Clean-Voided Midstream Performed By: #### C BC, BMP, HEPATIC, LIPASE #### [address] Bilirubin,Urine Negative Normal Negative [facility] Comment on above: Order Comment: Name Collection Type:: Clean-Voided Midstream Performed By: #### C BC, BMP, HEPATIC, LIPASE #### [address] Glucose Ql (U) Normal Normal Normal [facility] Comment on above: Order Comment: Name Collection Type:: Clean-Voided Midstream Performed By: #### C BC, BMP, HEPATIC, LIPASE #### [address] Hyaline Casts,Urine 0-8 Normal 0-8 [facility] Comment on above: Order Comment: Name Collection Type:: Clean-Voided Midstream Result Comment: PERF ORMED BY: [place] [address] PATHOLOGIST SALES OPERATIONS ASSISTANT BAUTISTA BAKER M.D. Performed By: #### C BC, BMP, HEPATIC, LIPASE #### [address] Ketones Ql (U) Trace High Negative [facility] Comment on above: Order Comment: Name Collection Type:: Clean-Voided Midstream Performed By: #### C BC, BMP, HEPATIC, LIPASE #### [address] Leukocyte esterase Test strip Ql (U) Negative Normal Negative [facility] Comment on above: Order Comment: Name Collection Type:: Clean-Voided Midstream Performed By: #### C BC, BMP, HEPATIC, LIPASE #### [address] Nitrite,Urine Negative Normal Negative [facility] Comment on above: Order Comment: Name Collection Type:: Clean-Voided Midstream Performed By: #### C BC, BMP, HEPATIC, LIPASE #### [address] Occult Blood,Urine Negative Normal Negative [facility] Comment on above: Order Comment: Name Collection Type:: Clean-Voided Midstream Result Comment: PERF ORMED BY: [place] [address] PATHOLOGIST SALES OPERATIONS ASSISTANT BAUTISTA BAKER M.D. Performed By: #### C BC, BMP, HEPATIC, LIPASE #### [address] Protein,Urine Negative Normal Negative [facility] Comment on above: Order Comment: Name Collection Type:: Clean-Voided Midstream Performed By: #### C BC, BMP, HEPATIC, LIPASE #### [address] RBC,Urine 1-2 Normal 0-4 [facility] Comment on above: Order Comment: Name Collection Type:: Clean-Voided Midstream Performed By: #### C BC, BMP, HEPATIC, LIPASE #### [place] [address] [place] Specificy [place],Urine 1.026 Normal 1.001-1.030 [facility] Comment on above: Order Comment: Name Collection Type:: Clean-Voided Midstream Performed By: #### C BC, BMP, HEPATIC, LIPASE #### [place] [address] [place] Squamous Epithelial Cell,Urine 3-4 High 0-2 [facility] Comment on above: Order Comment: Name Collection Type:: Clean-Voided Midstream Performed By: #### C BC, BMP, HEPATIC, LIPASE #### [address] Urobilinogen,Urine Normal Normal Normal [facility] Comment on above: Order Comment: Name Collection Type:: Clean-Voided Midstream Performed By: #### C BC, BMP, HEPATIC, LIPASE #### [address] WBC,Urine 3-4 Normal 0-4 [facility] Comment on above: Order Comment: Name Collection Type:: Clean-Voided Midstream Performed By: #### C BC, BMP, HEPATIC, LIPASE #### [address] Erythrocyte distribution wid th [Ratio] by Automated countOrdered By: Trace Lowery on 04-06-2023 Erythrocyte distribution width (RBC) [Ratio] 13.9 % Normal 11.9-15.3 [facility] Comment on above: Performed By: #### C BC, BMP, HEPATIC, LIPASE #### [address] Erythrocytes [#/volume] in B lood by Automated countOrdered By: Trace Lowery on 04-06-2023 RBC (Bld) [#/Vol] 4.17 10*6/uL Normal 3.60-5.00 [facility] Comment on above: Performed By: #### C BC, BMP, HEPATIC, LIPASE #### [address] Glucose [Mass/volume] in Ser um or PlasmaOrdered By: Trace Lowery on 04-06-2023 Glucose [Mass/Vol] 77 mg/dL Normal 70-100 [facility] Comment on above: ADA recommended refe rence rangeRandom Glucose Reference Range is dependent on time and content of last meal. Glucose of more than 200 mg/dL in a nonstressed, ambulatory subject supports the diagnosis of Diabetes Mellitus. Result Comment: [place] om Glucose Reference Range is dependent on time and content of last meal. Glucose of more than 200 mg/dL in a nonstressed, ambulatory subject supports the diagnosis of Diabetes Mellitus. ADA recommended reference range Performed By: #### C BC, BMP, HEPATIC, LIPASE #### [address] HCG ( test) IA.rapi d Ql (U)Ordered By: Trace Leosimore on 04-06-2023 HCG ( test) Ql (U) Negative [facility] HCG,Urineon 04-06-2023 Beta HCG ( test) Ql (U) Negative Normal [facility] Comment on above: Result Comment: PERF ORMED BY: [place] [address] PATHOLOGIST SALES OPERATIONS ASSISTANT BAUTISTA BAKER M.D. Performed By: #### U HCG #### [address] Hematocrit [Volume Fraction] of Blood by Automated countOrdered By: Trace Lowery on 04-06-2023 Hematocrit (Bld) [Volume fraction] 37.4 % Normal 34.0-46.4 [facility] Comment on above: Performed By: #### C BC, BMP, HEPATIC, LIPASE #### [address] Hemoglobin [Mass/volume] in BloodOrdered By: Trace Lowery on 04-06-2023 Hemoglobin (Bld) [Mass/Vol] 12.8 g/dL Normal 11.8-15.4 [facility] Comment on above: Performed By: #### C BC, BMP, HEPATIC, LIPASE #### [address] Hepatic Panelon 04-06-2023 Albumin [Mass/Vol] 4.5 g/dL Normal 3.5-5.7 [facility] Comment on above: Performed By: #### C BC, BMP, HEPATIC, LIPASE #### [address] Bilirubin,Indirect 0.3 mg/dL Normal [facility] Comment on above: Performed By: #### C BC, BMP, HEPATIC, LIPASE #### [address] [place] [address] [place] Bilirubin.indirect [Mass/Vol] 0.10 mg/dL Normal 0.03-0.18 [facility] Comment on above: Performed By: #### C BC, BMP, HEPATIC, LIPASE #### [facility] [address] Ketones Auto test strip (U) [Mass/Vol]Ordered By: Trace Lowery on 04-06-2023 Ketones (U) [Mass/Vol] Trace Negative [facility] - UrinalysisOrder ed By: Trace Lowery on 04-06-2023 Hyaline casts LM Ql (Urine sed) 0-8 [LPF] 0-8 [facility] Leukocytes [#/volume] correc darvin for nucleated erythrocytes in Blood by Automated counOrdered By: Trace Lowery on 04-06-2023 WBC corrected for nucl RBC Auto (Bld) [#/Vol] 3.8 10*3/uL 3.8-11.6 [facility] Leukocytes [#/volume] in Blo od by Automated countOrdered By: Trace Lowery on 04-06-2023 WBC (Bld) [#/Vol] 3.8 10*3/uL Normal 3.8-11.6 [facility] Comment on above: Performed By: #### C BC, BMP, HEPATIC, LIPASE #### [facility] [address] [place] [address] Lipase [Enzymatic activity/v olume] in Serum or PlasmaOrdered By: Trace Lowery on 04-06-2023 Lipase [Catalytic activity/Vol] 86.0 U/L High 11.0-82.0 [facility] Comment on above: Result Comment: PERF ORMED BY: [place] [address] PATHOLOGIST SALES OPERATIONS ASSISTANT BAUTISTA BAKER M.D. Performed By: #### C BC, BMP, HEPATIC, LIPASE #### [facility] [address] [place] [address] Lymphocytes [#/volume] in Bl ood by Automated countOrdered By: Trace Lowery on 04-06-2023 Lymphocytes (Bld) [#/Vol] 1.4 10*3/uL Normal 1.00-4.8 [facility] Comment on above: Performed By: #### C BC, BMP, HEPATIC, LIPASE #### [facility] [address] Lymphocytes/100 leukocytes i n Blood by Automated countOrdered By: Trace Bullimore on 04-06-2023 Lymphocytes/100 WBC (Bld) 37.6 % Normal . [facility] Comment on above: Performed By: #### C BC, BMP, HEPATIC, LIPASE #### [facility] [address] [place] [address] MCH [Entitic mass] by Automa darvin countOrdered By: Trace Bullimore on 04-06-2023 MCH (RBC) [Entitic mass] 30.6 pg Normal 24.7-34.3 [facility] Comment on above: Performed By: #### C BC, BMP, HEPATIC, LIPASE #### [address] MCHC Auto (RBC) [Mass/Vol]Or dered By: Trace Bullimore on 04-06-2023 MCHC (RBC) [Mass/Vol] 34.2 g/dL 32.0-35.0 [facility] MCV [Entitic volume] by Auto mated countOrdered By: Trace Bullimore on 04-06-2023 MCV (RBC) [Entitic vol] 89.7 fL Normal 80-100 [facility] Comment on above: Performed By: #### C BC, BMP, HEPATIC, LIPASE #### [facility] [address] [place] [address] Monocyte distribution width [Entitic volume] in Blood by AutomatedOrdered By: Trace Bullimore on 04-06-2023 Monocyte distribution width Auto (Bld) [Entitic vol] 15.98 % 0.00-20.00 [facility] Neutrophils [#/volume] in Bl ood by Automated countOrdered By: Trace Bullimore on 04-06-2023 Neutrophils (Bld) [#/Vol] 2.0 10*3/uL Normal 1.8-7.7 [facility] Comment on above: Performed By: #### C BC, BMP, HEPATIC, LIPASE #### [facility] [address] Nitrite Test strip Ql (U)Ord ered By: Trace Lowery on 04-06-2023 Nitrite Ql (U) Negative Negative [facility] No Panel InformationOrdered By: Trace Lowery on 04-06-2023 Estimated GFR (CKD-EPI) > 60.0 mL/Min [facility] Creatinine Clearance (Chem 98.98 [facility] Nucleated erythrocytes [Pres ence] in Blood by Automated countOrdered By: Trace Lowery on 04-06-2023 Nucleated RBC Auto Ql (Bld) 0.1 /100{WBC} 0-0.5 [facility] Platelet mean volume [Entiti c volume] in Blood by Automated countOrdered By: Trace Lowery on 04-06-2023 Platelet mean volume (Bld) [Entitic vol] 9.7 fL Normal 6.3-10.7 [facility] Comment on above: Performed By: #### C BC, BMP, HEPATIC, LIPASE #### [facility] [address] [place] [address] Platelets [#/volume] in Bloo d by Automated countOrdered By: Trace Lowery on 04-06-2023 Platelets (Bld) [#/Vol] 210 10*3/uL Normal 150-450 [facility] Comment on above: Performed By: #### C BC, BMP, HEPATIC, LIPASE #### [facility] [address] [place] [address] [place] Potassium [Moles/volume] in Serum or PlasmaOrdered By: Trace Lowery on 04-06-2023 Potassium [Moles/Vol] 3.7 mmol/L Normal 3.5-5.1 [facility] Comment on above: Performed By: #### C BC, BMP, HEPATIC, LIPASE #### [facility] [address] Protein Auto test strip (U) [Mass/Vol]Ordered By: Trace Lowery on 04-06-2023 Protein (U) [Mass/Vol] Negative Negative [facility] Protein [Mass/volume] in Ser um or PlasmaOrdered By: Trace Bullimore on 04-06-2023 Protein [Mass/Vol] 7.1 g/dL Normal 6.4-8.9 [facility] Comment on above: Performed By: #### C BC, BMP, HEPATIC, LIPASE #### [address] Serum globulin measurement b y calculation (mass/volume)Ordered By: Trace Bullimore on 04-06-2023 Globulin (S) [Mass/Vol] 2.6 g/dL Normal [facility] Comment on above: Performed By: #### C BC, BMP, HEPATIC, LIPASE #### [address] Serum or plasma albumin/glob ulin mass ratioOrdered By: Trace Bullimore on 04-06-2023 Albumin/Globulin [Mass ratio] 1.7 {ratio} Normal [facility] Comment on above: Performed By: #### C BC, BMP, HEPATIC, LIPASE #### [address] Serum or plasma anion gap de terminationOrdered By: Trace Bullimore on 04-06-2023 Anion gap [Moles/Vol] 12.4 mmol/L Normal 6.0-15.0 [facility] Comment on above: Performed By: #### C BC, BMP, HEPATIC, LIPASE #### [address] Serum or plasma non-glucuron idated bilirubin measurement (mass/volume)Ordered By: Trace Bullimore on 04-06-2023 Bilirubin.indirect [Mass/Vol] 0.3 mg/dL [facility] Sodium [Moles/volume] in Ser um or PlasmaOrdered By: Trace Bullimore on 04-06-2023 Sodium [Moles/Vol] 141 mmol/L Normal 136-145 [facility] Comment on above: Performed By: #### C BC, BMP, HEPATIC, LIPASE #### [facility] [address] [place] [id number] [place] Specific gravity Auto test s trip (U) [Rel density]Ordered By: Trace Lowery on 04-06-2023 Specific gravity (U) [Rel density] 1.026 1.001-1.030 [facility] Squamous epithelial cells de tection in urine sediment by light microscopyOrdered By: Trace Lowery on 04-06-2023 Epithelial cells.squamous LM Ql (Urine sed) 3-4 [HPF] 0-2 [facility] Urea nitrogen [Mass/volume] in Serum or PlasmaOrdered By: Trace Lowery on 04-06-2023 Urea nitrogen [Mass/Vol] 10 mg/dL Normal 7-25 [facility] Comment on above: Performed By: #### C BC, BMP, HEPATIC, LIPASE #### [address] Urine bacteria detection by automated methodOrdered By: Trace Lowery on 04-06-2023 Bacteria Auto Ql (U) None seen None Seen [facility] Urine clarity by refractomet ry automatedOrdered By: Trace Lowery on 04-06-2023 Clarity Refractometry automated (U) Cloudy Clear [facility] Urine glucose measurement by automated test strip (mass/volume)Ordered By: Trace Lowery on 04-06-2023 Glucose Auto test strip (U) [Mass/Vol] Normal mg/dL Normal [facility] Urine hemoglobin detection b y automated test stripOrdered By: Trace Lowery on 04-06-2023 Hemoglobin Auto test strip Ql (U) Negative Negative [facility] Urine leukocyte esterase det ection by automated test stripOrdered By: Trace Lowery on 04-06-2023 Leukocyte esterase Auto test strip Ql (U) Negative Negative [facility] Urine pH measurement by auto mated test stripOrdered By: Trace Lowery on 04-06-2023 pH (U) 7.5 [pH] Normal 5.0-9.0 [facility] Comment on above: Order Comment: Name Collection Type:: Clean-Voided Midstream Performed By: #### C BC, BMP, HEPATIC, LIPASE #### [facility] [address] [place] [id number] [facility] Urobilinogen Auto test strip (U) [Mass/Vol]Ordered By: Trace Lowery on 04-06-2023 Urobilinogen (U) [Mass/Vol] Normal mg/dL Normal [facility] BMPon 04-02-2023 Anion gap [Moles/Vol] 10 mmol/L Normal - [facility] Comment on above: Performed By: #### 2 133572, 2924807, 0888612, 59811086, 80708203, 37336220, 7006071, 57236729 ####[facility] [address] [place] [address] BUN/Creat Ratio 14 No Units Normal - [facility] Comment on above: Performed By: #### 2 704906, 0675180, 2745117, 29005411, 43864502, 67763246, 7659543, 09211488 ####[facility] [address] [place] [address] Calcium [Mass/Vol] 8.4 mg/dL Low 8.9-11.1 [facility] Comment on above: Performed By: #### 2 278107, 8931389, 7233997, 88828585, 20063860, 16252585, 3494468, 44939424 ####[facility] [address] [place] [address] Chloride [Moles/Vol] 111 mmol/L Normal 101-111 [facility] Comment on above: Performed By: #### 2 757105, 4178023, 0278254, 01414431, 99649401, 69454918, 2713066, 02401744 ####[facility] [address] [place] [address] CO2 [Moles/Vol] 21 mmol/L Normal 21-31 [facility] Comment on above: Performed By: #### 2 558598, 4901964, 0856714, 63790483, 36067400, 68977274, 3191905, 08281094 ####[facility] [address] [place] [address] Creatinine [Mass/Vol] 0.7 mg/dL Normal 0.5-1.3 [facility] Comment on above: Performed By: #### 2 339454, 5167481, 3933328, 13736986, 46884613, 05105753, 4189105, 11845326 ####[facility] [address] [place] [address] Glucose [Mass/Vol] 86 mg/dL Normal 55-199 [facility] Comment on above: Performed By: #### 2 923646, 3691797, 3558825, 55646065, 87619866, 82522473, 9191568, 94876835 ####[facility] [address] [place] [address] Potassium [Moles/Vol] 3.9 mmol/L Normal 3.5-5.3 [facility] Comment on above: Performed By: #### 2 240084, 0204237, 5968058, 87364844, 09165440, 62036441, 9661649, 72846481 ####[facility] [address] [place] [address] Sodium [Moles/Vol] 138 mmol/L Normal 135-145 [facility] Comment on above: Performed By: #### 2 141273, 7900632, 3847923, 85336081, 91973071, 96897491, 8560590, 25835580 ####[facility] [address] [place] [address] Urea nitrogen [Mass/Vol] 10 mg/dL Normal 5-21 [facility] Comment on above: Performed By: #### 2 292037, 8381780, 1373986, 05442158, 73224711, 20630836, 3925938, 37695268 ####[facility] [address] [place] [address] BNPon 04-02-2023 Int Ctr BNP Pass Normal [facility] Comment on above: Order Comment: 2nd d raw rejected due to clotted speciment. Phlebotomists notified of redraw by message. [facility] 04/02/2023 12:28:38 EST Performed By: #### 2 135406, 8782243, 4348997, 38622642, 30711044, 42765842, 2376679, 12636640 ####[facility] [address] [place] [address] Natriuretic peptide B (Bld) [Mass/Vol] 25 pg/mL Normal 5-80 [facility] Comment on above: Order Comment: 2nd d raw rejected due to clotted speciment. Phlebotomists notified of redraw by message. [facility] 04/02/2023 12:28:38 EST Performed By: #### 2 525943, 2365083, 2378766, 84644406, 32554291, 30180197, 5968589, 70629095 ####[facility] [address] [place] [address] CBC w/ Auto Diffon 4 Basophil Absolute 0.0 E9/L Normal 0.0-0.2 [facility] Comment on above: Order Comment: speci men rejected due to clot. Phlebotomists notified by message. [facility] 04/02/2023 11:56:19 EST\2nd draw rejected due to clot. Phlebotomists notified by message. [facility] 04/02/2023 12:27:56 EST Performed By: #### 2 836330, 2270483, 6706674, 74074833, 04978861, 14723436, 2005309, 99011894 ####[facility] [address] [place] [address] Basophils/100 WBC (Bld) 0.8 % Normal 0.0-2.0 [facility] Comment on above: Order Comment: speci men rejected due to clot. Phlebotomists notified by message. [facility] 04/02/2023 11:56:19 EST\2nd draw rejected due to clot. Phlebotomists notified by message. [facility] 04/02/2023 12:27:56 EST Performed By: #### 2 543370, 6801309, 2402750, 39749843, 19624837, 90065801, 5897588, 09302750 ####[facility] [address] [place] [address] Eos Absolute 0.2 E9/L Normal 0.0-0.5 [facility] Comment on above: Order Comment: speci men rejected due to clot. Phlebotomists notified by message. [facility] 04/02/2023 11:56:19 EST\2nd draw rejected due to clot. Phlebotomists notified by message. [facility] 04/02/2023 12:27:56 EST Performed By: #### 2 513360, 7948942, 2782826, 91995753, 82932502, 67568122, 5870954, 62207945 ####[facility] [address] [place] [address] Eosinophils/100 WBC (Bld) 3.1 % Normal 0.0-8.0 [facility] Comment on above: Order Comment: speci men rejected due to clot. Phlebotomists notified by message. [facility] 04/02/2023 11:56:19 EST\2nd draw rejected due to clot. Phlebotomists notified by message. [facility] 04/02/2023 12:27:56 EST Performed By: #### 2 035537, 8386634, 3712574, 82791575, 08410283, 36968054, 5326143, 45118240 ####[facility] [address] [place] [address] Erythrocyte distribution width (RBC) [Ratio] 14.0 % Normal 10.9-14.2 [facility] Comment on above: Order Comment: speci men rejected due to clot. Phlebotomists notified by message. [facility] 04/02/2023 11:56:19 EST\2nd draw rejected due to clot. Phlebotomists notified by message. [facility] 04/02/2023 12:27:56 EST Performed By: #### 2 809858, 2013731, 1916064, 57391047, 96890335, 16604925, 5017162, 53900648 ####[facility] [address] [place] [address] Hematocrit (Bld) [Volume fraction] 38.0 % Normal 34.0-46.0 [facility] Comment on above: Order Comment: speci men rejected due to clot. Phlebotomists notified by message. [facility] 04/02/2023 11:56:19 EST\2nd draw rejected due to clot. Phlebotomists notified by message. [facility] 04/02/2023 12:27:56 EST Performed By: #### 2 492959, 5570966, 6665138, 10229184, 73227415, 17941792, 6282993, 29934756 ####[facility] [address] [place] [address] Hemoglobin (Bld) [Mass/Vol] 12.8 g/dL Normal 12.0-16.0 [facility] Comment on above: Order Comment: speci men rejected due to clot. Phlebotomists notified by message. [facility] 04/02/2023 11:56:19 EST\2nd draw rejected due to clot. Phlebotomists notified by message. [facility] 04/02/2023 12:27:56 EST Performed By: #### 2 940283, 1141766, 1907690, 13885580, 74061548, 22321671, 3442234, 68420614 ####[facility] [address] [place] [address] Lymph Absolute 1.8 E9/L Normal 1.0-4.0 [facility] Comment on above: Order Comment: speci men rejected due to clot. Phlebotomists notified by message. [facility] 04/02/2023 11:56:19 EST\2nd draw rejected due to clot. Phlebotomists notified by message. [facility] 04/02/2023 12:27:56 EST Performed By: #### 2 319286, 1084044, 4469413, 82200956, 62994896, 66634437, 6726941, 12841744 ####[facility] [address] [place] [address] Lymphocytes/100 WBC (Bld) 34.1 % Normal 14.0-50.0 [facility] Comment on above: Order Comment: speci men rejected due to clot. Phlebotomists notified by message. [facility] 04/02/2023 11:56:19 EST\2nd draw rejected due to clot. Phlebotomists notified by message. [facility] 04/02/2023 12:27:56 EST Performed By: #### 2 400511, 2644124, 3745405, 94645866, 52607123, 81360314, 1913202, 93001177 ####[facility] [address] [place] [address] MCH (RBC) [Entitic mass] 29.8 pg Normal 27.0-34.0 [facility] Comment on above: Order Comment: speci men rejected due to clot. Phlebotomists notified by message. [facility] 04/02/2023 11:56:19 EST\2nd draw rejected due to clot. Phlebotomists notified by message. [facility] 04/02/2023 12:27:56 EST Performed By: #### 2 721514, 9115890, 9339527, 91824448, 18192692, 28706929, 9838909, 27692960 ####[facility] [address] [place] [address] MCHC (RBC) [Mass/Vol] 33.5 g/dL Normal 31.4-36.0 [facility] Comment on above: Order Comment: speci men rejected due to clot. Phlebotomists notified by message. [facility] 04/02/2023 11:56:19 EST\2nd draw rejected due to clot. Phlebotomists notified by message. [facility] 04/02/2023 12:27:56 EST Performed By: #### 2 517198, 6532455, 1828442, 05751667, 22514051, 95905799, 7933964, 35875167 ####[facility] [address] [place] [address] MCV (RBC) [Entitic vol] 88.9 fL Normal 80.0-100.0 [facility] Comment on above: Order Comment: speci men rejected due to clot. Phlebotomists notified by message. [facility] 04/02/2023 11:56:19 EST\2nd draw rejected due to clot. Phlebotomists notified by message. [facility] 04/02/2023 12:27:56 EST Performed By: #### 2 478935, 2237896, 3460719, 68485351, 96465716, 20951949, 7963745, 92734908 ####[facility] [address] [place] [address] Cabell Absolute 0.4 E9/L Normal 0.2-1.0 [facility] Comment on above: Order Comment: speci men rejected due to clot. Phlebotomists notified by message. [facility] 04/02/2023 11:56:19 EST\2nd draw rejected due to clot. Phlebotomists notified by message. [facility] 04/02/2023 12:27:56 EST Performed By: #### 2 760410, 6086849, 1416796, 10509627, 79555107, 80253767, 6846040, 64984510 ####[facility] [address] [place] [address] Monocytes/100 WBC (Bld) 7.4 % Normal 4.0-14.0 [facility] Comment on above: Order Comment: speci men rejected due to clot. Phlebotomists notified by message. [facility] 04/02/2023 11:56:19 EST\2nd draw rejected due to clot. Phlebotomists notified by message. [facility] 04/02/2023 12:27:56 EST Performed By: #### 2 405446, 5138593, 6065787, 56258500, 12017627, 03583339, 6478780, 88814911 ####[facility] [address] [place] [address] Neutro Absolute 2.9 E9/L Normal 2.0-7.5 [facility] Comment on above: Order Comment: speci men rejected due to clot. Phlebotomists notified by message. [facility] 04/02/2023 11:56:19 EST\2nd draw rejected due to clot. Phlebotomists notified by message. [facility] 04/02/2023 12:27:56 EST Performed By: #### 2 542659, 1132136, 5689374, 71641733, 86094574, 13658107, 0202902, 93302147 ####[facility] [address] [place] [address] Neutro Auto 54.6 % Normal 36.0-75.0 [facility] Comment on above: Order Comment: speci men rejected due to clot. Phlebotomists notified by message. [facility] 04/02/2023 11:56:19 EST\2nd draw rejected due to clot. Phlebotomists notified by message. [facility] 04/02/2023 12:27:56 EST Performed By: #### 2 480086, 4936165, 8458982, 83451132, 62194717, 83805379, 6321658, 12710605 ####[facility] [address] [place] [address] Platelet 204.0 E9/L Normal 150.0-500.0 [facility] Comment on above: Order Comment: speci men rejected due to clot. Phlebotomists notified by message. [facility] 04/02/2023 11:56:19 EST\2nd draw rejected due to clot. Phlebotomists notified by message. [facility] 04/02/2023 12:27:56 EST Result Comment: Veri fied with slide review Performed By: #### 2 584679, 7317913, 1672977, 67374287, 24631770, 95085035, 4061968, 48722619 ####[facility] [address] [place] [address] Platelet mean volume (Bld) [Entitic vol] 9.8 fL Normal 6.4-10.8 [facility] Comment on above: Order Comment: speci men rejected due to clot. Phlebotomists notified by message. [facility] 04/02/2023 11:56:19 EST\2nd draw rejected due to clot. Phlebotomists notified by message. [facility] 04/02/2023 12:27:56 EST Performed By: #### 2 243945, 7164249, 9664619, 66586828, 30352334, 67758782, 6879740, 47058967 ####[facility] [address] [place] [address] RBC 4.3 E12/L Normal 4.3-5.9 [facility] Comment on above: Order Comment: speci men rejected due to clot. Phlebotomists notified by message. [facility] 04/02/2023 11:56:19 EST\2nd draw rejected due to clot. Phlebotomists notified by message. [facility] 04/02/2023 12:27:56 EST Performed By: #### 2 223626, 3265775, 4176922, 45747704, 86605334, 99633929, 7896307, 53167711 ####[facility] [address] [place] [address] WBC 5.3 E9/L Normal 4.0-11.0 [facility] Comment on above: Order Comment: speci men rejected due to clot. Phlebotomists notified by message. [facility] 04/02/2023 11:56:19 EST\2nd draw rejected due to clot. Phlebotomists notified by message. [facility] 04/02/2023 12:27:56 EST Performed By: #### 2 924028, 1769805, 7534800, 34513809, 12935634, 76111980, 2959712, 91340726 ####[facility] [address] [place] [address] CHEMISTRYOrdered By: SYSTEM SYSTEM on 04-02-2023 Troponin [...] Sensitivity Troponin I Instructions For Use, Alan [employer], September 2017) Albumin [Mass/Vol] 3.9 g/dL Normal [...] Sensitivity Troponin I Instructions For Use, Alan Garber, September 2017) Anion gap [Moles/Vol] 10 mmol/L [...] Normal 5 - 80 pg/mL [facility] COAGULATIONOrdered By: Gladys Arroyo on 04-02-2023 aPTT Coag (PPP) [Time] 33.2 s Normal 25.1 - 36.5 second(s) [facility] Comment on above: Interpretive Data: [...] the same coagulation reagent and instrumentation as [facility]. Currently there are no coagulation studies available worldwide for children to 14 days, and no normal ranges. Heparin therapeutic range (represented by Anti-Factor Xa activity of 0.2 - 0.4 U/mL) corresponds to PTT of 56.6 - 109.0 sec. Fibrin D-dimer FEU (PPP) [Mass/Vol] 541 ng/mL FEU Invalid Interpretation Code 215 - 500 ng/mL FEU [facility] Comment on above: Result Comment: Resu lts Called To AL/Mauricio López By And Read Back For Confirmation [...] [Relative time] 1.14 {INR} Invalid Interpretation Code [facility] Comment on above: Interpretive Data: I NR results are specifically intended to assess patients stabilized on long-term Anticoagulation therapy suggested INR s Less Intensive Anticoagulation 2.0 3.0 Conventional Range 3.0 4.5 PT Coag (PPP) [Time] 12.7 s High 9.4 - 12.5 second(s) [facility] Comment on above: Interpretive Data: [...] the same coagulation reagent and instrumentation as [facility]. Currently there are no coagulation studies available worldwide for children to 14 days, and no normal ranges. CTA Abdomen and Pelvison CTA Abdomen and Pelvis Normal [facility] CTA Cheston 04-02-2023 CTA Chest Normal [facility] Consent for Treatmenton 03-18 Consent for Treatment [id number] B5#1.00TIFF Normal [facility] D-Dimeron 04-02-2023 Fibrin D-dimer FEU (PPP) [Mass/Vol] 541 [id number] Abnormal 215-500 [facility] Comment on above: Order Comment: speci men rejected due to clot. Phlebotomists notified by message. [facility] 04/02/2023 12:33:03 EST Result Comment: Resu lts Called To AL/Mauricio López By And Read Back For Confirmation [...] severe skin infectionsLiver cirrhosisPregnancy Performed By: #### 2 260566, 8886493, 8842362, 28521918, 56348307, 35822943, 6329083, 61187484 ####[facility] [address] [place] [address] Discharge Instructionson Discharge Instructions [id number]#1.00TIFF Normal [facility] ED Clinical Summaryon 2023 ED Clinical Summary Normal [facility] ED Note-Physicianon 04-02-19 24 ED Note-Physician Normal [facility] Comment on above: Result Comment: Elec tronically Signed By: Jose Ramon Martinez, Ashutosh Coker\Date and Time Signed: 04/02/23 17:20 EST ED Patient Education Noteon 04-02-2023 ED Patient Education Note Normal [facility] ED Patient Summaryon 024 ED Patient Summary Normal [facility] Free T4on 04-02-2023 Free T4 [Mass/Vol] 0.75 ng/dL Normal 0.58-1.64 [facility] Comment on above: Performed By: #### 2 814962, 67272616, 0542417, 9384678 ####[facility] [address] [place] [address] HEMATOLOGYOrdered By: SYSTEM SYSTEM on 04-02-2023 Basophil [...] Normal 80.0 - 100.0 fL Remisol Heme [place] Absolute 0.4 E9/L Normal 0.2 - 1.0 [...] 04-02-2023 Albumin [Mass/Vol] 3.9 g/dL Normal 3.3-5.0 [facility] Comment on above: Performed By: #### 2 389541, 58621041, 2776985, 9850693 ####[facility] [address] [place] [address] Albumin/Globulin [Mass ratio] 1.6 {ratio} Normal 1.1-2.2 [facility] Comment on above: Performed By: #### 2 595613, 08281374, 7208765, 6583139 ####[facility] [address] [place] [address] Alk Phos 50 Int._Unit/L Normal 21-98 [facility] Comment on above: Performed By: #### 2 871786, 20506005, 3837087, 2818349 ####[facility] [address] [place] [address] ALT 27 Int._Unit/L Normal 6-46 [facility] Comment on above: Performed By: #### 2 863217, 13260928, 5069600, 0548928 ####[facility] [address] [place] [address] AST 36 Int._Unit/L Normal 5-43 [facility] Comment on above: Performed By: #### 2 847113, 13366742, 5249813, 0246507 ####[facility] [address] [place] [address] Bili Direct 0.0 mg/dL Normal 0.0-0.4 [facility] Comment on above: Performed By: #### 2 126823, 80437824, 4996954, 5771775 ####[facility] [address] [place] [address] Bili Indirect 0.3 mg/dL Normal 0.1-0.9 [facility] Comment on above: Performed By: #### 2 249454, 45198446, 2734367, 6247908 ####[facility] [address] [place] [address] Bili Total 0.3 mg/dL Normal 0.0-1.1 [facility] Comment on above: Performed By: #### 2 238472, 11684899, 5156604, 5880138 ####[facility] [address] [place] [address] Globulin (S) [Mass/Vol] 2.4 g/dL Normal 1.4-4.0 [facility] Comment on above: Performed By: #### 2 195441, 88591545, 6934328, 7780974 ####[facility] [address] [place] [address] Protein [Mass/Vol] 6.3 g/dL Normal 6.0-7.8 [facility] Comment on above: Performed By: #### 2 846247, 03080527, 4118297, 1277758 ####[facility] [address] [place] [address] Lipase Levelon 04-02-2023 Lipase Lvl 124 unit/L High 13-58 [facility] Comment on above: Performed By: #### 2 508476, 85005794, 1343478, 1094435 ####[facility] [address] [place] [address] Magnesiumon 04-02-2023 Magnesium [Mass/Vol] 1.9 mg/dL Normal 1.3-2.4 [facility] Comment on above: Performed By: #### 2 759579, 9437519, 6147548, 66625989, 65228081, 24130514, 2835506, 81669913 ####[facility] [address] [place] [address] PT & PTTon 04-02-2023 aPTT Coag (PPP) [Time] 33.2 second(s) Normal 25.1-36.5 [facility] Comment on above: Order Comment: speci [...] the same coagulation reagent and instrumentation as [facility]. Currently there are no coagulation studies available worldwide for children to 14 days, and no normal ranges. Heparin therapeutic range (represented by Anti-Factor Xa activity of 0.2 - 0.4 U/mL) corresponds to PTT of 56.6 - 109.0 sec. Performed By: #### 2 824952, 6942870, 6382453, 70702843, 16411494, 30881158, 1942248, 46391872 ####[facility] [address] [place] [address] INR Coag (PPP) [Relative time] 1.14 {INR} Invalid Interpretation Code [facility] Comment on above: Order Comment: speci men rejected due to clot. phlebotomists notified of redraw by message. [facility] 04/02/2023 12:33:39 EST Result Comment: INR results are specifically intended to assess patients stabilized on long-term Anticoagulation therapy suggested INR?s ?Less Intensive Anticoagulation? 2.0 ? 3.0Conventional Range 3.0 ? 4.5 Performed By: #### 2 323759, 8206915, 6873131, 85242807, 08928374, 23599201, 8438829, 77392360 ####[facility] [address] [place] [address] PT Coag (PPP) [Time] 12.7 second(s) High 9.4-12.5 [facility] Comment on above: Order Comment: speci [...] the same coagulation reagent and instrumentation as [facility]. Currently there are no coagulation studies available worldwide for children to 14 days, and no normal ranges. Performed By: #### 2 180311, 5205681, 2313704, 04359204, 06152337, 25004253, 4367505, 12369578 ####[facility] [address] [place] [address] Pre-Arrival Noteon Pre-Arrival Note Normal [facility] Progress Note-Nurseon 2023 Progress Note-Nurse CT called and verbalized IV infiltrated when attempting to flush. IV removed per this nurse and attempted to place IV with unsuccessful attempts. Dr. Albright and Sabina, RN aware. Normal [facility] TSH With T4fr Reflexon 04-02 TSH Qn 0.11 m[IU]/L Low 0.34-5.60 [facility] Comment on above: Performed By: #### 2 184878, 67586174, 4295013, 9737968 ####[facility] [address] [place] [address] Troponin 0 Hr.on 04-02-2023 Troponin 2.40 pg/mL Low 10.10-27.10 [facility] Comment on above: Result Comment: The 95% CI (Confidence Interval) PPV (Positive Predictive Value) for myocardial infarction in females is 38 pg/mL, in males 51 pg/mL. The results should be used in conjunction with clinical conditions of myocardial infarction.(Access High Sensitivity Troponin I Instructions For Use, [employer], September 2017) Performed By: #### 2 016418, 1765850, 6047493, 58233291, 25957108, 96592293, 6338553, 98075556 ####[facility] [address] [place] [address] Troponin 3 Hr.on 04-02-2023 Troponin I.cardiac [Mass/Vol] ng/mL Low 10.10-27.10 [facility] Comment on above: Result Comment: The 95% CI (Confidence Interval) PPV (Positive Predictive Value) for myocardial infarction in females is 38 pg/mL, in males 51 pg/mL. The results should be used in conjunction with clinical conditions of myocardial infarction.(Access High Sensitivity Troponin I Instructions For Use, [employer], September 2017) Performed By: #### 1 [id number] ####[facility] [address] [place] [address] XR Chest Single Viewon 04-02 XR Chest Single View Normal [facility] eGFRon 04-02-2023 eGFR 116 mL/min/1.73 m2 Normal >=59 [facility] Comment on above: Order Comment: Order added by Discern Expert. Performed By: #### 2 851688, 2335528, 3360835, 27487258, 77496206, 06288554, 2101440, 21656016 ####[facility] [address] [place] [address] Home Health Recordson 2023 Home Health Records [id number] F2#1.00TIFF Normal [facility] Ambulatory Visit Summaryon 0 03-24-2023 Ambulatory Visit Summary Normal [facility] Auth for Release of Medical Recordson 03-24-2023 Auth for Release of Medical Records [id number]#[id number] Normal [facility] Family Medicine Office/Clini c Noteon 03-24-2023 Family Medicine Office/Clinic Note Normal [facility] Comment on above: Result Comment: Elec tronically Signed By: Jaquan Paula\.br\Date and Time Signed: 03/24/23 15:20 EST CBC panel Auto (Bld)on 03-19 Erythrocyte distribution width (RBC) [Ratio] 12.1 % 11.5 - 14.5 % [facility] Hematocrit (Bld) [Volume fraction] 33.7 % Low 36.0 - 46.0 % [facility] Hemoglobin (Bld) [Mass/Vol] 11.9 g/dL Low 12.0 - 16.0 g/dL [facility] Interpretation and review of laboratory results Abnormal [facility] MCH (RBC) [Entitic mass] 30.1 pg 26.0 - 34.0 pg [facility] MCHC (RBC) [Mass/Vol] 35.3 g/dL 32.0 - 36.0 g/dL [facility] MCV (RBC) [Entitic vol] 85 fL 80 - 100 fL [facility] Nucleated RBC/100 WBC (Bld) [Ratio] 0.0 % [facility] Platelets (Bld) [#/Vol] 285 10*3/uL [facility] RBC (Bld) [#/Vol] 3.96 10*6/uL [facility] WBC (Bld) [#/Vol] 4.3 10*3/uL Low [facility] Erythrocyte distribution width (RBC) [Ratio] 12.1 % Normal 11.5-14.5 [facility] Comment on above: Performed By: #### V ERAB #### MELISA Galvan ([id number]) [facility] ([facility]) [address] [place] [address] [place] Hematocrit (Bld) [Volume fraction] 33.7 % Low 36.0-46.0 [facility] Comment on above: Performed By: #### V ERAB #### MELISA Galvan ([id number]) [facility] ([facility]) [address] [place] [address] [place] Hemoglobin (Bld) [Mass/Vol] 11.9 g/dL Low 12.0-16.0 [facility] Comment on above: Performed By: #### V ERAB #### MELISA Galvan ([id number]) [facility] ([facility]) [address] [place] [address] [place] MCH (RBC) [Entitic mass] 30.1 pg Normal 26.0-34.0 [facility] Comment on above: Performed By: #### V ERAB #### MELISA Galvan () [facility] ([facility]) [address] [place] [address] [place] MCHC (RBC) [Mass/Vol] 35.3 g/dL Normal 32.0-36.0 [facility] Comment on above: Performed By: #### V ERAB #### MELISA Galvan ([id number]) [facility] ([facility]) [address] [place] [address] [place] MCV (RBC) [Entitic vol] 85 fL Normal 80-100 [facility] Comment on above: Performed By: #### V ERAB #### MELISA Galvan ([id number]) [facility] ([facility]) [address] [place] [address] [place] Nucleated RBC/100 WBC (Bld) [Ratio] 0.0 /100 WBCs Normal 0.0-0.0 [facility] Comment on above: Performed By: #### V ERAB #### MELISA Galvan ([id number]) [facility] ([facility]) [address] [place] [address] [place] Platelets (Bld) [#/Vol] 285 x10*3/uL Normal 150-450 [facility] Comment on above: Performed By: #### V ERAB #### MELISA Galvan ([id number]) [facility] ([facility]) [address] [place] [address] [place] RBC (Bld) [#/Vol] 3.96 x10*6/uL Low 4.00-5.20 [facility] Comment on above: Performed By: #### V ERAB #### MELISA Galvan ([id number]) [facility] ([facility]) [address] [place] [address] [place] WBC (Bld) [#/Vol] 4.3 x10*3/uL Low 4.4-11.3 [facility] Comment on above: Performed By: #### V ERAB #### MELISA Galvan ([id number]) [facility] ([facility]) [address] [place] [address] [place] Comprehensive metabolic 2000 panelon 03-19-2023 Albumin [Mass/Vol] 3.2 g/dL Low 3.5 - 5.0 g/dL [facility] ALP (Bld) [Catalytic activity/Vol] 68 U/L 35 - 125 U/L [facility] ALT [Catalytic activity/Vol] 14 U/L 5 - 40 U/L [facility] Anion gap [Moles/Vol] 13 mmol/L NINF - 19 mmol/L [facility] AST [Catalytic activity/Vol] 27 U/L 5 - 40 U/L [facility] Bilirubin [Mass/Vol] 0.4 mg/dL 0.1 - 1.2 mg/dL [facility] Calcium [Mass/Vol] 8.7 mg/dL 8.5 - 10.4 mg/dL [facility] Chloride [Moles/Vol] 106 mmol/L 97 - 107 mmol/L [facility] CO2 [Moles/Vol] 21 mmol/L Low 24 - 31 mmol/L [facility] Creatinine [Mass/Vol] 0.60 mg/dL 0.40 - 1.60 mg/dL [facility] eGFR - PINF [facility] Comment on above: Calculations of jessica mated GFR are performed using the 2020 CKD-EPI Study Refit equation without the race variable for the IDMS-Traceable creatinine methods. https://jasn.asnjournals.org/content/early/ASN.55032122 88 Glucose [Mass/Vol] 98 mg/dL 65 - 99 mg/dL [facility] Interpretation and review of laboratory results Abnormal [facility] Potassium [Moles/Vol] 3.7 mmol/L 3.4 - 5.1 mmol/L [facility] Protein [Mass/Vol] 5.7 g/dL Low 5.9 - 7.9 g/dL [facility] Sodium [Moles/Vol] 140 mmol/L 133 - 145 mmol/L [facility] Urea nitrogen [Mass/Vol] 5 mg/dL Low 8 - 25 mg/dL [facility] Albumin [Mass/Vol] 3.2 g/dL Low 3.5-5.0 [facility] Comment on above: Performed By: #### V ERAB #### MELISA Galvan ([id number]) [facility] ([facility]) [address] [place] [address] [place] ALP (Bld) [Catalytic activity/Vol] 68 U/L Normal 35-125 [facility] Comment on above: Performed By: #### V ERAB #### MELISA Galvan ([id number]) [facility] ([facility]) [address] [place] [address] [place] ALT [Catalytic activity/Vol] 14 U/L Normal 5-40 [facility] Comment on above: Performed By: #### V ERAB #### MELISA Galvan ([id number]) [facility] ([facility]) [address] [place] [address] [place] Anion gap [Moles/Vol] 13 mmol/L Normal <=19 [facility] Comment on above: Performed By: #### V ERAB #### MELISA Galvan () [facility] ([employer] [address] [place] [address] [place] AST [Catalytic activity/Vol] 27 U/L Normal 5-40 [facility] Comment on above: Performed By: #### V ERAB #### MELISA Galvan () [facility] [address] [place] [address] [place] Bilirubin [Mass/Vol] 0.4 mg/dL Normal 0.1-1.2 [facility] Comment on above: Performed By: #### V ERAB #### MELISA Galvan () [facility] ([employer]) [address] [place] [address] [place] Calcium [Mass/Vol] 8.7 mg/dL Normal 8.5-10.4 [facility] Comment on above: Performed By: #### V ERAB #### MELISA Galvan () [facility] ([employer]) [address] [place] [address] [place] Chloride [Moles/Vol] 106 mmol/L Normal 97-107 [facility] Comment on above: Performed By: #### V ERAB #### MELISA Galvan () [facility] ([employer]) [address] [place] [address] [place] CO2 [Moles/Vol] 21 mmol/L Low 24-31 [facility] Comment on above: Performed By: #### V ERAB #### MELSIA Galvan () [facility] ([employer]) [address] [place] [address] [place] Creatinine [Mass/Vol] 0.60 mg/dL Normal 0.40-1.60 [facility] Comment on above: Performed By: #### V ERAB #### MELISA Galvan () [facility] ([employer]) [address] [place] [address] [place] GFR/1.73 sq M.predicted MDRD (S/P/Bld) [Vol rate/Area] mL/min/{1.73_m2} Normal >60 [facility] Comment on above: Result Comment: Calc ulations of estimated GFR are performed using the 2020 CKD-EPI Study Refit equation without the race variable for the IDMS-Traceable creatinine methods. https://jasn.asnjournals.org/content//ASN.15192742 88 Performed By: #### V ERAB #### MELISA Galvan ([id number]) [facility] ([facility]) [address] [place] [address] [place] Glucose [Mass/Vol] 98 mg/dL Normal 65-99 [facility] Comment on above: Performed By: #### V ERAB #### MELISA Galvan ([id number]) [facility] ([facility]) [address] [place] [address] [place] Potassium [Moles/Vol] 3.7 mmol/L Normal 3.4-5.1 [facility] Comment on above: Performed By: #### V ERAB #### MELISA Galvan ([id number]) [facility] ([facility]) [address] [place] [address] [place] Protein [Mass/Vol] 5.7 g/dL Low 5.9-7.9 [facility] Comment on above: Performed By: #### V ERAB #### MELISA Galvan ([id number]) [facility] ([facility]) [address] [place] [address] [place] Sodium [Moles/Vol] 140 mmol/L Normal 133-145 [facility] Comment on above: Performed By: #### V ERAB #### MELISA Galvan ([id number]) [facility] ([facility]) [address] [place] [address] [place] Urea nitrogen [Mass/Vol] 5 mg/dL Low 8-25 [facility] Comment on above: Performed By: #### V ERAB #### MELISA Galvan ([id number]) [facility] [address] [place] [address] EGDon 03-19-2023 Esophagogastroduode noscopy Table formatting from the original result was not included. [facility] EGD Study observation Giorgio reyna 03-19-2023 Table formatting from the original result [...] unspecified vomiting type Staff Staff Role Eve Preston MD Proceduralist Medications No administrations occurring from [...] Tissue STOMACH ANTRUM BIOPSY SURGICAL PATHOLOGY EXAM Tomasa Keyes RN 03/19/2023 1431 Procedure Location [address] [address] Referring Provider Generic Provider [place] No address on file Procedure Provider No name on file [facility] Work Phone: Radiology Study observation (narrative) [facility] Work Phone: EGD Study observation Narrat iveOrdered By: Eve Preston on 03-19-2023 [facility] Work Phone: Home Health Recordson 2023 Home Health Records [id number] Normal [facility] Surgical pathology studyon 0 03-19-2023 Surgical pathology study Pathology report.total SEE COMMENT Surgical Pathology Case: [id number] Authorizing Provider: Eve Preston MD Collected: 03/19/2023 1431 Ordering Location: [facility] Received: 03/19/[address] [place] [address] Pathologist: Melisa Mc MD Specimen: STOMACH ANTRUM BIOPSY, r/o h [...] is submitted in toto in 1 cassette. MCH Gross dissection performed at: [address] [address] Normal [facility] CBC panel Auto (Bld)on 03-18 Erythrocyte distribution width (RBC) [Ratio] 12.5 % 11.5 - 14.5 % [facility] Hematocrit (Bld) [Volume fraction] 37.2 % 36.0 - 46.0 % [facility] Hemoglobin (Bld) [Mass/Vol] 12.1 g/dL 12.0 - 16.0 g/dL [facility] Interpretation and review of laboratory results Abnormal [facility] MCH (RBC) [Entitic mass] 30.0 pg 26.0 - 34.0 pg [facility] MCHC (RBC) [Mass/Vol] 32.5 g/dL 32.0 - 36.0 g/dL [facility] MCV (RBC) [Entitic vol] 92 fL 80 - 100 fL [facility] Nucleated RBC/100 WBC (Bld) [Ratio] 0.0 % [facility] Platelets (Bld) [#/Vol] 266 10*3/uL [facility] RBC (Bld) [#/Vol] 4.03 10*6/uL [facility] WBC (Bld) [#/Vol] 4.0 10*3/uL Low [facility] Erythrocyte distribution width (RBC) [Ratio] 12.5 % Normal 11.5-14.5 [facility] Comment on above: Performed By: #### 5 8410-2 ####MELISA Galvan ([id number])[facility] ()[address] [place] [address] Hematocrit (Bld) [Volume fraction] 37.2 % Normal 36.0-46.0 [facility] Comment on above: Performed By: #### 5 8410-2 ####MELISA Galvan ([id number])[facility] ()[address] [place] [address] Hemoglobin (Bld) [Mass/Vol] 12.1 g/dL Normal 12.0-16.0 [facility] Comment on above: Performed By: #### 5 8410-2 ####MELISA Galvan ([id number])[facility] ()[address] [place] [address] MCH (RBC) [Entitic mass] 30.0 pg Normal 26.0-34.0 [facility] Comment on above: Performed By: #### 5 8410-2 ####MELISA Galvan ()[facility] ()[address] [place] [address] MCHC (RBC) [Mass/Vol] 32.5 g/dL Normal 32.0-36.0 [facility] Comment on above: Performed By: #### 5 8410-2 ####MELISA Galvan ([id number])[facility] ()[address] [place] [address] MCV (RBC) [Entitic vol] 92 fL Normal 80-100 [facility] Comment on above: Performed By: #### 5 8410-2 ####MELISA Galvan ()[facility] ()[address] [place] [address] Nucleated RBC/100 WBC (Bld) [Ratio] 0.0 /100 WBCs Normal 0.0-0.0 [facility] Comment on above: Performed By: #### 5 8410-2 ####MELISA Galvan ([id number])[facility] ()[address] [place] [address] Platelets (Bld) [#/Vol] 266 x10*3/uL Normal 150-450 [facility] Comment on above: Performed By: #### 5 8410-2 ####MELISA Galvan ([id number])[facility] ()[address] [place] [address] RBC (Bld) [#/Vol] 4.03 x10*6/uL Normal 4.00-5.20 [facility] Comment on above: Performed By: #### 5 8410-2 ####MELISA Galvan ()[facility] ()[address] [place] [address] WBC (Bld) [#/Vol] 4.0 x10*3/uL Low 4.4-11.3 [facility] Comment on above: Performed By: #### 5 8410-2 ####MELISA Galvan ([id number])[facility] ()[address] [place] [address] Comprehensive metabolic 2000 panelon 03-18-2023 Albumin [Mass/Vol] 3.0 g/dL Low 3.5 - 5.0 g/dL [facility] ALP (Bld) [Catalytic activity/Vol] 66 U/L 35 - 125 U/L [facility] ALT [Catalytic activity/Vol] 17 U/L 5 - 40 U/L [facility] Anion gap [Moles/Vol] 10 mmol/L NINF - 19 mmol/L [facility] AST [Catalytic activity/Vol] 33 U/L 5 - 40 U/L [facility] Bilirubin [Mass/Vol] 0.3 mg/dL 0.1 - 1.2 mg/dL [facility] Calcium [Mass/Vol] 8.4 mg/dL Low 8.5 - 10.4 mg/dL [facility] Chloride [Moles/Vol] 108 mmol/L High 97 - 107 mmol/L [facility] CO2 [Moles/Vol] 19 mmol/L Low 24 - 31 mmol/L [facility] Creatinine [Mass/Vol] 0.80 mg/dL 0.40 - 1.60 mg/dL [facility] eGFR - PINF [facility] Comment on above: Calculations of jessica mated GFR are performed using the 2020 CKD-EPI Study Refit equation without the race variable for the IDMS-Traceable creatinine methods. https://jasn.asnjournals.org/content//ASN.90598842 88 Glucose [Mass/Vol] 79 mg/dL 65 - 99 mg/dL [facility] Interpretation and review of laboratory results Abnormal [facility] Potassium [Moles/Vol] 3.8 mmol/L 3.4 - 5.1 mmol/L [facility] Protein [Mass/Vol] 5.7 g/dL Low 5.9 - 7.9 g/dL [facility] Sodium [Moles/Vol] 137 mmol/L 133 - 145 mmol/L [facility] Urea nitrogen [Mass/Vol] 5 mg/dL Low 8 - 25 mg/dL [facility] Albumin [Mass/Vol] 3.0 g/dL Low 3.5-5.0 [facility] Comment on above: Performed By: #### 2 4323-8 ####MELISA Galvan ([id number])[facility] ()[address] [place] [address] ALP (Bld) [Catalytic activity/Vol] 66 U/L Normal 35-125 [facility] Comment on above: Performed By: #### 2 4323-8 ####MELISA Galvan (67554)[facility] ()[address] [place] [address] ALT [Catalytic activity/Vol] 17 U/L Normal 5-40 [facility] Comment on above: Performed By: #### 2 4323-8 ####MELISA Galvan ([id number])[facility] ()[address] [place] [address] Anion gap [Moles/Vol] 10 mmol/L Normal <=19 [facility] Comment on above: Performed By: #### 2 4323-8 ####MELISA Galvan ([id number])[facility] ()[address] [place] [address] AST [Catalytic activity/Vol] 33 U/L Normal 5-40 [facility] Comment on above: Performed By: #### 2 4323-8 ####MELISA Galvan (66609)[facility] ()[address] [place] [address] Bilirubin [Mass/Vol] 0.3 mg/dL Normal 0.1-1.2 [facility] Comment on above: Performed By: #### 2 4323-8 ####MELISA Galvan ([id number])[facility] ()[address] [place] [address] Calcium [Mass/Vol] 8.4 mg/dL Low 8.5-10.4 [facility] Comment on above: Performed By: #### 2 4323-8 ####MELISA Galvan ([id number])[facility] ()[address] [place] [address] Chloride [Moles/Vol] 108 mmol/L High 97-107 [facility] Comment on above: Performed By: #### 2 4323-8 ####MELISA Galvan (28129)[facility] ()[address] [place] [address] CO2 [Moles/Vol] 19 mmol/L Low 24-31 [facility] Comment on above: Performed By: #### 2 4323-8 ####MELISA Galvan (95039)[facility] ()[address] [place] [address] Creatinine [Mass/Vol] 0.80 mg/dL Normal 0.40-1.60 [facility] Comment on above: Performed By: #### 2 4323-8 ####MELISA Galvan (49244)[facility] ()[address] [place] [address] GFR/1.73 sq M.predicted MDRD (S/P/Bld) [Vol rate/Area] mL/min/{1.73_m2} Normal >60 [facility] Comment on above: Result Comment: Calc ulations of estimated GFR are performed using the 2020 CKD-EPI Study Refit equation without the race variable for the IDMS-Traceable creatinine methods. https://jasn.asnjournals.org/content/early//ASN.69746610 88 Performed By: #### 2 4323-8 ####MELISA Galvan (77382)[facility] ()[address] [place] [address] Glucose [Mass/Vol] 79 mg/dL Normal 65-99 [facility] Comment on above: Performed By: #### 2 4323-8 ####MELISA Galvan (62401)[facility] ()[address] [place] [address] Potassium [Moles/Vol] 3.8 mmol/L Normal 3.4-5.1 [facility] Comment on above: Performed By: #### 2 4323-8 ####MELISA Galvan ([id number])[facility] ()[address] [place] [address] Protein [Mass/Vol] 5.7 g/dL Low 5.9-7.9 [facility] Comment on above: Performed By: #### 2 4323-8 ####MELISA Galvan (73796)[facility] ()[address] [place] [address] Sodium [Moles/Vol] 137 mmol/L Normal 133-145 [facility] Comment on above: Performed By: #### 2 4323-8 ####MELISA Galvan ([id number])[facility] ()[address] [place] [address] Urea nitrogen [Mass/Vol] 5 mg/dL Low 8-25 [facility] Comment on above: Performed By: #### 2 4323-8 ####MELISA Galvan (47186)[facility] ()[address] [place] [address] CBC panel Auto (Bld)on 03-17 Erythrocyte distribution width (RBC) [Ratio] 12.5 % 11.5 - 14.5 % [facility] Hematocrit (Bld) [Volume fraction] 34.9 % Low 36.0 - 46.0 % [facility] Hemoglobin (Bld) [Mass/Vol] 11.5 g/dL Low 12.0 - 16.0 g/dL [facility] Interpretation and review of laboratory results Abnormal [facility] MCH (RBC) [Entitic mass] 30.2 pg 26.0 - 34.0 pg [facility] MCHC (RBC) [Mass/Vol] 33.0 g/dL 32.0 - 36.0 g/dL [facility] MCV (RBC) [Entitic vol] 92 fL 80 - 100 fL [facility] Nucleated RBC/100 WBC (Bld) [Ratio] 0.0 % [facility] Platelets (Bld) [#/Vol] 268 10*3/uL [facility] RBC (Bld) [#/Vol] 3.81 10*6/uL Low [facility] WBC (Bld) [#/Vol] 5.0 10*3/uL [facility] Erythrocyte distribution width (RBC) [Ratio] 12.5 % Normal 11.5-14.5 [facility] Comment on above: Performed By: #### 5 8410-2 ####MELISA Galvan (10621)[facility] ()[address] [place] [address] Hematocrit (Bld) [Volume fraction] 34.9 % Low 36.0-46.0 [facility] Comment on above: Performed By: #### 5 8410-2 ####MELISA Galvan (85415)[facility] ()[address] [place] [address] Hemoglobin (Bld) [Mass/Vol] 11.5 g/dL Low 12.0-16.0 [facility] Comment on above: Performed By: #### 5 8410-2 ####MELISA Galvan ([id number])[facility] ()[address] [place] [address] MCH (RBC) [Entitic mass] 30.2 pg Normal 26.0-34.0 [facility] Comment on above: Performed By: #### 5 8410-2 ####MELISA Galvan ([id number])[facility] ()[address] [place] [address] MCHC (RBC) [Mass/Vol] 33.0 g/dL Normal 32.0-36.0 [facility] Comment on above: Performed By: #### 5 8410-2 ####MELISA Galvan (07554)[facility] ()[address] [place] [address] MCV (RBC) [Entitic vol] 92 fL Normal 80-100 [facility] Comment on above: Performed By: #### 5 8410-2 ####MELISA Galvan ([id number])[facility] ()[address] [place] [address] Nucleated RBC/100 WBC (Bld) [Ratio] 0.0 /100 WBCs Normal 0.0-0.0 [facility] Comment on above: Performed By: #### 5 8410-2 ####MELISA Galvan (50304)[facility] ()[address] [place] [address] Platelets (Bld) [#/Vol] 268 x10*3/uL Normal 150-450 [facility] Comment on above: Performed By: #### 5 8410-2 ####MELISA Galvan ([id number])[facility] ()[address] [place] [address] RBC (Bld) [#/Vol] 3.81 x10*6/uL Low 4.00-5.20 [facility] Comment on above: Performed By: #### 5 8410-2 ####MELISA Galvan (34594)[facility] ()[address] [place] [address] WBC (Bld) [#/Vol] 5.0 x10*3/uL Normal 4.4-11.3 [facility] Comment on above: Performed By: #### 5 8410-2 ####MELISA Galvan ([id number])[facility] ()[address] [place] [address] Comprehensive metabolic 2000 panelon 03-17-2023 Albumin [Mass/Vol] 3.3 g/dL Low 3.5 - 5.0 g/dL Un [facility] ALP (Bld) [Catalytic activity/Vol] 61 U/L 35 - 125 U/L [facility] ALT [Catalytic activity/Vol] 17 U/L 5 - 40 U/L [facility] Anion gap [Moles/Vol] 10 mmol/L NINF - 19 mmol/L [facility] AST [Catalytic activity/Vol] 31 U/L 5 - 40 U/L [facility] Bilirubin [Mass/Vol] 0.2 mg/dL 0.1 - 1.2 mg/dL [facility] Calcium [Mass/Vol] 8.1 mg/dL Low 8.5 - 10.4 mg/dL [facility] Chloride [Moles/Vol] 112 mmol/L High 97 - 107 mmol/L [facility] CO2 [Moles/Vol] 21 mmol/L Low 24 - 31 mmol/L [facility] Creatinine [Mass/Vol] 0.80 mg/dL 0.40 - 1.60 mg/dL [facility] eGFR - PINF [facility] Comment on above: Calculations of jessica mated GFR are performed using the 2020 CKD-EPI Study Refit equation without the race variable for the IDMS-Traceable creatinine methods. https://jasn.asnjournals.org/content/early/ASN.47068285 88 Glucose [Mass/Vol] 122 mg/dL High 65 - 99 mg/dL Uni [facility] Interpretation and review of laboratory results Abnormal [facility] Potassium [Moles/Vol] 4.3 mmol/L 3.4 - 5.1 mmol/L [facility] Protein [Mass/Vol] 5.7 g/dL Low 5.9 - 7.9 g/dL Un [facility] Sodium [Moles/Vol] 143 mmol/L 133 - 145 mmol/L [facility] Urea nitrogen [Mass/Vol] 5 mg/dL Low 8 - 25 mg/dL [facility] Albumin [Mass/Vol] 3.3 g/dL Low 3.5-5.0 [facility] Comment on above: Performed By: #### 2 4323-8 ####MELISA Galvan (82054)[facility] ()[address] [place] [address] ALP (Bld) [Catalytic activity/Vol] 61 U/L Normal 35-125 [facility] Comment on above: Performed By: #### 2 432-8 ####MELISA Galvan ([id number])[facility] ()[address] [place] [address] ALT [Catalytic activity/Vol] 17 U/L Normal 5-40 [facility] Comment on above: Performed By: #### 2 432-8 ####MELISA Galvan (25605)[facility] ()[address] [place] [address] Anion gap [Moles/Vol] 10 mmol/L Normal <=19 [facility] Comment on above: Performed By: #### 2 432-8 ####MELISA Galvan (80394)[facility] ()[address] [place] [address] AST [Catalytic activity/Vol] 31 U/L Normal 5-40 [facility] Comment on above: Performed By: #### 2 4323-8 ####MELISA Galvan (08341)[facility] ()[address] [place] [address] Bilirubin [Mass/Vol] 0.2 mg/dL Normal 0.1-1.2 [facility] Comment on above: Performed By: #### 2 4323-8 ####MELISA Galvan ([id number])[facility] ()[address] [place] [address] Calcium [Mass/Vol] 8.1 mg/dL Low 8.5-10.4 [facility] Comment on above: Performed By: #### 2 4323-8 ####MELISA Galvan ([id number])[facility] ()[address] [place] [address] Chloride [Moles/Vol] 112 mmol/L High 97-107 [facility] Comment on above: Performed By: #### 2 4323-8 ####MELISA Galvan (00806)[facility] ()[address] [place] [address] CO2 [Moles/Vol] 21 mmol/L Low 24-31 [facility] Comment on above: Performed By: #### 2 4323-8 ####MELISA Galvan (20911)[facility] ()[address] [place] [address] Creatinine [Mass/Vol] 0.80 mg/dL Normal 0.40-1.60 [facility] Comment on above: Performed By: #### 2 4323-8 ####MELISA Galvan (69565)[facility] ()[address] [place] [address] GFR/1.73 sq M.predicted MDRD (S/P/Bld) [Vol rate/Area] mL/min/{1.73_m2} Normal >60 [facility] Comment on above: Result Comment: Calc ulations of estimated GFR are performed using the 2020 CKD-EPI Study Refit equation without the race variable for the IDMS-Traceable creatinine methods. https://jasn.asnjournals.org/content//ASN.46240408 88 Performed By: #### 2 4323-8 ####MELISA Galvan (13779)[facility] ()[address] [place] [address] Glucose [Mass/Vol] 122 mg/dL High 65-99 [facility] Comment on above: Performed By: #### 2 4323-8 ####MELISA Galvan (63921)[facility] ()[address] [place] [address] Potassium [Moles/Vol] 4.3 mmol/L Normal 3.4-5.1 [facility] Comment on above: Performed By: #### 2 4323-8 ####MELISA Galvan (15334)[facility] ()[address] [place] [address] Protein [Mass/Vol] 5.7 g/dL Low 5.9-7.9 [facility] Comment on above: Performed By: #### 2 4323-8 ####MELISA Galvan (53499)[facility] ()[address] [place] [address] Sodium [Moles/Vol] 143 mmol/L Normal 133-145 [facility] Comment on above: Performed By: #### 2 4323-8 ####MELISA Galvan (80339)[facility] ()[address] [place] [address] Urea nitrogen [Mass/Vol] 5 mg/dL Low 8-25 [facility] Comment on above: Performed By: #### 2 4323-8 ####MELISA Galvan (64734)[facility] ()[address] [place] [address] FL UPPER GI W DOUBLE CONTRAS T W SMALL BOWEL FOLLOW THROUGHon 03-17-2023 FL UPPER GI W DOUBLE CONTRAST W SMALL BOWEL FOLLOW THROUGH Interpreted By: Corie Garza, ADDENDUM: The exam was a single contrast upper GI with small-bowel follow-through Signed by: Corei Garza 04/01/2023 12:58 PM -------- ORIGINAL REPORT -------- Dictation workstation: [id number] Interpreted By: Corie Garza, STUDY: FL UPPER GI W DOUBLE CONTRAST W SMALL BOWEL FOLLOW THROUGH; 03/17/2023 4:40 pm INDICATION: Signs/Symptoms:abdo kerry pain. COMPARISON: None. ACCESSION NUMBER(S): [id number] ORDERING CLINICIAN: TIFFANIE MENDEZ TECHNIQUE: Multiple fluoroscopic spot images were obtained during a single contrast upper GI with KUB. Total fluoroscopy time: 1 minute 32 seconds Radiation exposure (Reference Air Kerma): 99.36 mGy Images: 2 spot images 7 series and 2 delayed AP views of the abdomen FINDINGS: Cephalometric Technician images demonstrate postsurgical changes from previous Tan-en-Y [...] Corie Garza 03/17/2023 5:00 PM Dictation workstation: [id number] [facility] RF Upper gastrointestinal tr act and Small bowel Views W air contrast PO and W barium contrast Mary 03-17-2023 Postsurgical changes from gastric bypass. No evidence for obstruction.. MACRO: none Signed by: Corie Garza 03/17/2023 5:00 PM Dictation workstation: [id number] MMODAL Interpreted By: Corie Garza, STUDY: FL UPPER GI W DOUBLE CONTRAST W SMALL BOWEL FOLLOW THROUGH; 03/17/2023 4:40 pm INDICATION: Signs/Symptoms:abdo kerry pain. COMPARISON: None. ACCESSION NUMBER(S): [id number] ORDERING CLINICIAN: TIFFANIE MENDEZ TECHNIQUE: Multiple fluoroscopic spot images were obtained during a single contrast upper GI with KUB. 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 Contrast is seen passing easily from the distal esophagus into the gastric remnant and Tan loop. No evidence for extravasation is noted. No abnormally dilated loops of small bowel are noted. Contrast reaches large bowel within 150 minutes of administration of contrast. MMODAL Corie Garza MD - 03/17/2023 Interpreted By: Corie Garza, STUDY: FL UPPER GI W DOUBLE CONTRAST W SMALL BOWEL FOLLOW THROUGH; 03/17/2023 4:40 pm INDICATION: Signs/Symptoms:abdo kerry pain. COMPARISON: None. ACCESSION NUMBER(S): [id number] ORDERING CLINICIAN: TIFFANIE MENDEZ TECHNIQUE: Multiple fluoroscopic spot images were obtained during a single contrast upper GI with KUB. Total fluoroscopy time: 1 minute 32 seconds Radiation exposure (Reference Air Kerma): 99.36 mGy Images: 2 spot images 7 series and 2 delayed AP views of the abdomen FINDINGS: Cephalometric Technician images demonstrate postsurgical changes from previous Tan-en-Y [...] Corie Garza 03/17/2023 5:00 PM Dictation workstation: [id number] [facility] Work Phone: [facility] Work Phone: Radiology Study observation (narrative) [facility] Work Phone: XR CHEST 1 VIEWon 03-17-2023 XR CHEST 1 VIEW Interpreted By: Nya Ahmadi, STUDY: XR CHEST 1 VIEW 03/17/2023 7:09 pm INDICATION: Signs/Symptoms:S/p NG placement COMPARISON: 03/17/2023 done at 2:05 p.m. ACCESSION NUMBER(S): [id number] ORDERING CLINICIAN: TIFFANIE MENDEZ TECHNIQUE: AP erect view of the chest FINDINGS: The nasogastric tube has not changed in placement with the tip seen within the proximal thoracic esophagus. Heart and mediastinum are normally visualized. Lungs are clear. IMPRESSION: Distal tip of nasogastric tube in proximal thoracic esophagus just above the aortic arch. Signed by: Nya Ahmadi 03/17/2023 8:19 PM Dictation workstation: [id number] [facility] XR CHEST 1 VIEW Interpreted By: Corie Garza, STUDY: XR CHEST 1 VIEW; 03/17/2023 12:41 pm INDICATION: Signs/Symptoms:Stat us post NG tube placement. COMPARISON: None available ACCESSION NUMBER(S): [id number] ORDERING CLINICIAN: TIFFANIE MENDEZ FINDINGS: RESULT: Nasogastric [...] Corie Garza 03/17/2023 4:19 PM Dictation workstation: [id number] [facility] XR Chest Single viewon 03-17 Distal tip of nasogastric tube in proximal thoracic esophagus just above the aortic arch. Signed by: Nya Ahmadi 03/17/2023 8:19 PM Dictation workstation: [id number] MMODAL Interpreted By: Nya Ahmadi, STUDY: XR CHEST 1 VIEW 03/17/2023 7:09 pm INDICATION: Signs/Symptoms:S/p NG placement COMPARISON: 03/17/2023 done at 2:05 p.m. ACCESSION NUMBER(S): [id number] ORDERING CLINICIAN: TIFFANIE MENDEZ TECHNIQUE: AP erect view of the chest FINDINGS: The nasogastric tube has not changed in placement with the tip seen within the proximal thoracic esophagus. Heart and mediastinum are normally visualized. Lungs are clear. MMODAL Nya Ahmadi MD - 03/17/2023 Interpreted By: Nya Ahmadi, STUDY: XR CHEST 1 VIEW 03/17/2023 7:09 pm INDICATION: Signs/Symptoms:S/p NG placement COMPARISON: 03/17/2023 done at 2:05 p.m. ACCESSION NUMBER(S): [id number] ORDERING CLINICIAN: TIFFANIE MENDEZ TECHNIQUE: AP erect view of the chest FINDINGS: The nasogastric tube has not changed in placement with the tip seen within the proximal thoracic esophagus. Heart and mediastinum are normally visualized. Lungs are clear. IMPRESSION: Distal tip of nasogastric tube in proximal thoracic esophagus just above the aortic arch. Signed by: Nya Ahmadi 03/17/2023 8:19 PM Dictation workstation: [id number] [facility] Work Phone: Radiology Study observation (narrative) [facility] Work Phone: Nasogastric tube tip is noted at the level of the upper esophagus at the level of the clavicular heads. The nasogastric tube removed itself from the patient soon after this exam. Signed by: Corie Garza 03/17/2023 4:19 PM Dictation workstation: [id number] MMODAL Interpreted By: Corie Garza, STUDY: XR CHEST 1 VIEW; 03/17/2023 12:41 pm INDICATION: Signs/Symptoms:Stat us post NG tube placement. COMPARISON: None available ACCESSION NUMBER(S): [id number] ORDERING CLINICIAN: TIFFANIE MENDEZ FINDINGS: RESULT: Nasogastric [...] tube placement. COMPARISON: None available ACCESSION NUMBER(S): [id number] ORDERING CLINICIAN: TIFFANIE MENDEZ FINDINGS: RESULT: Nasogastric [...] Corie Garza 03/17/2023 4:19 PM Dictation workstation: [id number] [facility] Work Phone: [facility] Work Phone: Radiology Study observation (narrative) [facility] Work Phone: XR Chest Single viewOrdered By: Nya Ahmadi on 03-17-2023 [facility] Work Phone: BMPon 03-16-2023 Anion gap [Moles/Vol] 11 mmol/L Normal 6-16 [facility] Comment on above: Performed By: #### 2 785071, 14940414, 3667313, 2877195, 7600855, 8528351 ####[facility] [address] [place] [address] BUN/Creat Ratio 10 No Units Normal 10-20 [facility] Comment on above: Performed By: #### 2 048968, 87456091, 6824540, 9045983, 3061042, 8769703 ####[facility] [address] [place] [address] Calcium [Mass/Vol] 8.5 mg/dL Low 8.9-11.1 [facility] Comment on above: Performed By: #### 2 967181, 44188191, 0563805, 0523097, 2126468, 0730310 ####[facility] [address] [place] [address] Chloride [Moles/Vol] 109 mmol/L Normal 101-111 [facility] Comment on above: Performed By: #### 2 031158, 19360498, 8195382, 3503924, 9024761, 0985006 ####[facility] [address] [place] [address] CO2 [Moles/Vol] 24 mmol/L Normal 21-31 [facility] Comment on above: Performed By: #### 2 410259, 34846979, 5246388, 0636271, 6895080, 1658547 ####[facility] [address] [place] [address] Creatinine [Mass/Vol] 0.8 mg/dL Normal 0.5-1.3 [facility] Comment on above: Performed By: #### 2 601159, 77301826, 9914882, 7905333, 9840272, 7189887 ####[facility] [address] [place] [address] Glucose [Mass/Vol] 77 mg/dL Normal 55-199 [facility] Comment on above: Performed By: #### 2 957071, 62268679, 7309701, 6800385, 8292230, 6353610 ####[facility] [address] [place] [address] Potassium [Moles/Vol] 3.7 mmol/L Normal 3.5-5.3 [facility] Comment on above: Performed By: #### 2 968697, 45967460, 0879311, 8401093, 7077197, 7898223 ####[facility] [address] [place] [address] Sodium [Moles/Vol] 140 mmol/L Normal 135-145 [facility] Comment on above: Performed By: #### 2 534898, 05035934, 1502275, 8720156, 1276129, 1844634 ####[facility] [address] [place] [address] Urea nitrogen [Mass/Vol] 8 mg/dL Normal 5-21 [facility] Comment on above: Performed By: #### 2 650493, 00593170, 1602355, 7667919, 7787208, 7490475 ####[facility] [address] [place] [address] CBC W Auto Differential pane l (Bld)on 03-16-2023 Basophils (Bld) [#/Vol] 0.07 10*3/uL [facility] Basophils/100 WBC (Bld) 1.4 % 0.0 - 2.0 % [facility] Eosinophils (Bld) [#/Vol] 0.50 10*3/uL [facility] Eosinophils/100 WBC (Bld) 9.9 % 0.0 - 6.0 % [facility] Erythrocyte distribution width (RBC) [Ratio] 12.3 % 11.5 - 14.5 % [facility] Hematocrit (Bld) [Volume fraction] 33.4 % Low 36.0 - 46.0 % [facility] Hemoglobin (Bld) [Mass/Vol] 10.8 g/dL Low 12.0 - 16.0 g/dL [facility] Immature granulocytes (Bld) [#/Vol] 0.01 10*3/uL [facility] Immature granulocytes/100 WBC (Bld) 0.2 % 0.0 - 0.9 % [facility] Comment on above: Immature Granulocyte Count (IG) includes promyelocytes, myelocytes and metamyelocytes but does not include bands. Percent differential counts (%) should be interpreted in the context of the absolute cell counts (cells/UL). Interpretation and review of laboratory results Abnormal [facility] Lymphocytes (Bld) [#/Vol] 1.70 10*3/uL [facility] Lymphocytes/100 WBC (Bld) 33.7 % 13.0 - 44.0 % [facility] MCH (RBC) [Entitic mass] 30.5 pg 26.0 - 34.0 pg [facility] MCHC (RBC) [Mass/Vol] 32.3 g/dL 32.0 - 36.0 g/dL [facility] MCV (RBC) [Entitic vol] 94 fL 80 - 100 fL [facility] Monocytes (Bld) [#/Vol] 0.31 10*3/uL [facility] Monocytes/100 WBC (Bld) 6.2 % 2.0 - 10.0 % [facility] Neutrophils (Bld) [#/Vol] 2.45 10*3/uL [facility] Comment on above: Percent differential counts (%) should be interpreted in the context of the absolute cell counts (cells/uL). Neutrophils/100 WBC (Bld) 48.6 % 40.0 - 80.0 % [facility] Nucleated RBC/100 WBC (Bld) [Ratio] 0.0 % [facility] Platelets (Bld) [#/Vol] 273 10*3/uL [facility] RBC (Bld) [#/Vol] 3.54 10*6/uL [facility] WBC (Bld) [#/Vol] 5.0 10*3/uL [facility] Basophils (Bld) [#/Vol] 0.07 x10*3/uL Normal 0.00-0.10 [facility] Comment on above: Performed By: #### 5 7021-8 ####MELISA Galvan ([id number])[facility] (MW)[address] [place] [address] Basophils/100 WBC (Bld) 1.4 % Normal 0.0-2.0 [facility] Comment on above: Performed By: #### 5 7021-8 ####MELISA Galvan ([id number])[facility] ()[address] [place] [address] Eosinophils (Bld) [#/Vol] 0.50 x10*3/uL Normal 0.00-0.70 [facility] Comment on above: Performed By: #### 5 7021-8 ####MELISA Galvan ([id number])[facility] ()[address] [place] [address] Eosinophils/100 WBC (Bld) 9.9 % Normal 0.0-6.0 [facility] Comment on above: Performed By: #### 5 7021-8 ####MELISA Galvan (77393)[facility] ()[address] [place] [address] Erythrocyte distribution width (RBC) [Ratio] 12.3 % Normal 11.5-14.5 [facility] Comment on above: Performed By: #### 5 7021-8 ####MELISA Galvan (93139)[facility] ()[address] [place] [address] Hematocrit (Bld) [Volume fraction] 33.4 % Low 36.0-46.0 [facility] Comment on above: Performed By: #### 5 7021-8 ####MELISA Galvan ([id number])[facility] ()[address] [place] [address] Hemoglobin (Bld) [Mass/Vol] 10.8 g/dL Low 12.0-16.0 [facility] Comment on above: Performed By: #### 5 7021-8 ####MELISA Galvan (92703)[facility] ()[address] [place] [address] Immature granulocytes (Bld) [#/Vol] 0.01 x10*3/uL Normal 0.00-0.70 [facility] Comment on above: Performed By: #### 5 7021-8 ####MELISA Galvan (08195)[facility] ()[address] [place] [address] Immature granulocytes/100 WBC (Bld) 0.2 % Normal 0.0-0.9 [facility] Comment on above: Result Comment: Janny ture Granulocyte Count (IG) includes promyelocytes, myelocytes and metamyelocytes but does not include bands. Percent differential counts (%) should be interpreted in the context of the absolute cell counts (cells/UL). Performed By: #### 5 7021-8 ####MELISA Galvan (79596)[facility] ()[address] [place] [address] Lymphocytes (Bld) [#/Vol] 1.70 x10*3/uL Normal 1.20-4.80 [facility] Comment on above: Performed By: #### 5 7021-8 ####MELISA Galvan (32436)[facility] ()[address] [place] [address] Lymphocytes/100 WBC (Bld) 33.7 % Normal 13.0-44.0 [facility] Comment on above: Performed By: #### 5 7021-8 ####MELISA Galvan ([id number])[facility] ()[address] [place] [address] MCH (RBC) [Entitic mass] 30.5 pg Normal 26.0-34.0 [facility] Comment on above: Performed By: #### 5 7021-8 ####MELISA Galvan (19460)[facility] ()[address] [place] [address] MCHC (RBC) [Mass/Vol] 32.3 g/dL Normal 32.0-36.0 [facility] Comment on above: Performed By: #### 5 7021-8 ####MELISA Galvan ([id number])[facility] INCLUDES THE [facility] ()[address] [place] [address] MCV (RBC) [Entitic vol] 94 fL Normal 80-100 [facility] Comment on above: Performed By: #### 5 7021-8 ####MELISA Galvan ([id number])[facility] ()[address] [place] [address] Monocytes (Bld) [#/Vol] 0.31 x10*3/uL Normal 0.10-1.00 [facility] Comment on above: Performed By: #### 5 7021-8 ####MELISA Galvan (73210)[facility] ()[address] [place] [address] Monocytes/100 WBC (Bld) 6.2 % Normal 2.0-10.0 [facility] Comment on above: Performed By: #### 5 7021-8 ####MELISA Galvan ([id number])[facility] ()[address] [place] [address] Neutrophils (Bld) [#/Vol] 2.45 x10*3/uL Normal 1.20-7.70 [facility] Comment on above: Result Comment: Perc ent differential counts (%) should be interpreted in the context of the absolute cell counts (cells/uL). Performed By: #### 5 7021-8 ####MELISA Galvan ([id number])[facility] ()[address] [place] [address] Neutrophils/100 WBC (Bld) 48.6 % Normal 40.0-80.0 [facility] Comment on above: Performed By: #### 5 7021-8 ####MELISA Galvan (69984)[facility] ()[address] [place] [address] Nucleated RBC/100 WBC (Bld) [Ratio] 0.0 /100 WBCs Normal 0.0-0.0 [facility] Comment on above: Performed By: #### 5 7021-8 ####MELISA Galvan (60955)[facility] ()[address] [place] [facility] [place] [address] Platelets (Bld) [#/Vol] 273 x10*3/uL Normal 150-450 [facility] Comment on above: Performed By: #### 5 7021-8 ####MELISA Galvan (69190)[facility] ()[address] [place] [address] RBC (Bld) [#/Vol] 3.54 x10*6/uL Low 4.00-5.20 [facility] Comment on above: Performed By: #### 5 7021-8 ####MELISA Galvan (35350)[facility] ()[address] [place] [address] WBC (Bld) [#/Vol] 5.0 x10*3/uL Normal 4.4-11.3 [facility] Comment on above: Performed By: #### 5 7021-8 ####MELISA Galvan (82094)[facility] ()[address] [place] [facility] [place] [address] CBC w/ Auto Diffon 4 Basophil Absolute 0.1 E9/L Normal 0.0-0.2 [facility] Comment on above: Performed By: #### 2 579463, 19844507, 6661339, 4244930, 9539572, 4114901 ####[facility] [address] [place] [address] Basophils/100 WBC (Bld) 2.3 % High 0.0-2.0 [facility] Comment on above: Performed By: #### 2 928953, 47416621, 8642183, 1614017, 8949037, 4273289 ####[facility] [address] [place] [address] Eos Absolute 0.5 E9/L Normal 0.0-0.5 [facility] Comment on above: Performed By: #### 2 725882, 16102196, 9451705, 4726799, 8829328, 2150199 ####[address] [address] Eosinophils/100 WBC (Bld) 10.3 % High 0.0-8.0 [facility] Comment on above: Performed By: #### 2 460828, 39885105, 8323023, 5787860, 7011786, 1680004 ####[address] [address] Erythrocyte distribution width (RBC) [Ratio] 13.2 % Normal 10.9-14.2 [facility] Comment on above: Performed By: #### 2 793106, 34569781, 9717726, 3009123, 5638757, 3924055 ####[address] [address] Hematocrit (Bld) [Volume fraction] 38.0 % Normal 34.0-46.0 [facility] Comment on above: Performed By: #### 2 786856, 63682048, 2269478, 4966945, 4642616, 8608708 ####[address] [address] Hemoglobin (Bld) [Mass/Vol] 12.5 g/dL Normal 12.0-16.0 [facility] Comment on above: Performed By: #### 2 558853, 85065572, 5889240, 0407735, 6338446, 5218594 ####[address] [address] Lymph Absolute 1.5 E9/L Normal 1.0-4.0 [facility] Comment on above: Performed By: #### 2 128030, 93929068, 5622697, 6712728, 3353214, 8325889 ####[address] [address] Lymphocytes/100 WBC (Bld) 32.0 % Normal 14.0-50.0 [facility] Comment on above: Performed By: #### 2 882142, 31306839, 7554678, 0550420, 8497768, 6736068 ####[facility] [address] [place] [address] MCH (RBC) [Entitic mass] 29.7 pg Normal 27.0-34.0 [facility] Comment on above: Performed By: #### 2 524757, 61044028, 0268279, 9559124, 6650143, 9005291 ####[address] [address] MCHC (RBC) [Mass/Vol] 33.0 g/dL Normal 31.4-36.0 [facility] Comment on above: Performed By: #### 2 423595, 24807688, 8625122, 1305272, 7874359, 9927528 ####[address] [address] MCV (RBC) [Entitic vol] 89.8 fL Normal 80.0-100.0 [facility] Comment on above: Performed By: #### 2 533654, 24279971, 8708333, 9024041, 0653077, 1889983 ####[address] [address] [place] Absolute 0.3 E9/L Normal 0.2-1.0 [facility] Comment on above: Performed By: #### 2 588489, 73451545, 7512267, 9140601, 3825102, 5269664 ####[address] [address] Monocytes/100 WBC (Bld) 6.4 % Normal 4.0-14.0 [facility] Comment on above: Performed By: #### 2 059960, 70721006, 2967014, 7574549, 8277320, 8258810 ####[address] [place] [address] Neutro Absolute 2.3 E9/L Normal 2.0-7.5 [facility] Comment on above: Performed By: #### 2 140905, 53625615, 7118333, 7639627, 2247654, 2037234 ####[facility] [address] [place] [address] Neutro Auto 49.0 % Normal 36.0-75.0 [facility] Comment on above: Performed By: #### 2 028801, 80269994, 4386437, 7582103, 3397085, 7640905 ####[address] [address] Platelet 313.0 E9/L Normal 150.0-500.0 [facility] Comment on above: Performed By: #### 2 292678, 49599201, 0662856, 5364236, 8019905, 9721565 ####[address] [address] Platelet mean volume (Bld) [Entitic vol] 8.7 fL Normal 6.4-10.8 [facility] Comment on above: Performed By: #### 2 367188, 90481613, 2179703, 6693296, 6737764, 8195084 ####[address] [address] RBC 4.2 E12/L Low 4.3-5.9 [facility] Comment on above: Performed By: #### 2 186376, 73521441, 1572691, 0435168, 0835665, 3345152 ####[address] [address] WBC 4.8 E9/L Normal 4.0-11.0 [facility] Comment on above: Performed By: #### 2 515815, 87412602, 0087650, 6050501, 0463663, 3681155 ####[address] [address] CHEMISTRYOrdered By: SYSTEM SYSTEM on 03-16-2023 Albumin [...] and IV contrast. COMPARISON: None.. ACCESSION NUMBER(S): [id number] ORDERING CLINICIAN: TIFFANIE MENDEZ TECHNIQUE: Oral contrast [...] Corie Garza 03/16/2023 5:46 PM Dictation workstation: [id number] Normal [facility] CT Abdomen and Pelvis W cont rast Brenden 03-16-2023 Patchy ground-glass densities in the bilateral lung bases may represent atelectasis. Multiple cystic lesions scattered throughout both lobes of the liver. Postsurgical changes of Tan-en-Y gastric bypass. MACRO: none Signed by: Corie Garza 03/16/2023 5:46 PM Dictation workstation: [id number] [facility]ODAL Interpreted By: Corie Garza, STUDY: CT ABDOMEN PELVIS W IV CONTRAST; 03/16/2023 5:27 pm INDICATION: Signs/Symptoms:abdo kerry pain - with oral and IV contrast. COMPARISON: None.. ACCESSION NUMBER(S): [id number] ORDERING CLINICIAN: TIFFANIE MENDEZ TECHNIQUE: Oral contrast [...] Wall: Unremarkable. Bones: No acute bony abnormalities. MMODAL Corie Garza MD - 03/16/2023 Interpreted By: Corie Garza, STUDY: CT ABDOMEN PELVIS W IV CONTRAST; 03/16/2023 5:27 pm INDICATION: Signs/Symptoms:abdo kerry pain - with oral and IV contrast. COMPARISON: None.. ACCESSION NUMBER(S): [id number] ORDERING CLINICIAN: TIFFANIE MENDEZ TECHNIQUE: Oral contrast [...] Corie Garza 03/16/2023 5:46 PM Dictation workstation: [id number] [facility] Work Phone: Radiology Study observation (narrative) [facility] Work Phone: CT Abdomen and Pelvis W cont rast IVOrdered By: Corie Garza on 03-16-2023 [facility] Work Phone: Comprehensive metabolic 2000 panelon 03-16-2023 Albumin [Mass/Vol] 3.0 g/dL Low 3.5 - 5.0 g/dL [facility] ALP (Bld) [Catalytic activity/Vol] 58 U/L 35 - 125 U/L [facility] ALT [Catalytic activity/Vol] 13 U/L 5 - 40 U/L [facility] Anion gap [Moles/Vol] 10 mmol/L NINF - 19 mmol/L [facility] AST [Catalytic activity/Vol] 32 U/L 5 - 40 U/L [facility] Bilirubin [Mass/Vol] mg/dL 0.1 - 1.2 mg/dL [facility] Calcium [Mass/Vol] 7.9 mg/dL Low 8.5 - 10.4 mg/dL [facility] Chloride [Moles/Vol] 110 mmol/L High 97 - 107 mmol/L [facility] CO2 [Moles/Vol] 21 mmol/L Low 24 - 31 mmol/L [facility] Creatinine [Mass/Vol] 0.80 mg/dL 0.40 - 1.60 mg/dL [facility] eGFR - PINF [facility] Comment on above: Calculations of jessica mated GFR are performed using the 2020 CKD-EPI Study Refit equation without the race variable for the IDMS-Traceable creatinine methods. https://jasn.asnjournals.org/content/early//ASN.65799053 88 Glucose [Mass/Vol] 82 mg/dL 65 - 99 mg/dL [facility] Interpretation and review of laboratory results Abnormal [facility] Potassium [Moles/Vol] 3.7 mmol/L 3.4 - 5.1 mmol/L [facility] Protein [Mass/Vol] 5.5 g/dL Low 5.9 - 7.9 g/dL [facility] Sodium [Moles/Vol] 141 mmol/L 133 - 145 mmol/L [facility] Urea nitrogen [Mass/Vol] 8 mg/dL 8 - 25 mg/dL [facility] Albumin [Mass/Vol] 3.0 g/dL Low 3.5-5.0 [facility] Comment on above: Performed By: #### 2 4323-8 ####MELISA Galvan ([id number])[facility] ()[address] [place] [address] ALP (Bld) [Catalytic activity/Vol] 58 U/L Normal 35-125 [facility] Comment on above: Performed By: #### 2 4323-8 ####MELISA Galvan (03577)[facility] ()[address] [place] [address] ALT [Catalytic activity/Vol] 13 U/L Normal 5-40 [facility] Comment on above: Performed By: #### 2 4323-8 ####MELISA Galvan (28569)[facility] ()[address] [place] [address] Anion gap [Moles/Vol] 10 mmol/L Normal <=19 [facility] Comment on above: Performed By: #### 2 4323-8 ####MELISA Galvan (03204)[facility] ()[address] [place] [address] AST [Catalytic activity/Vol] 32 U/L Normal 5-40 [facility] Comment on above: Performed By: #### 2 4323-8 ####MELISA Galvan (82803)[facility] ()[address] [place] [address] Bilirubin [Mass/Vol] mg/dL Normal 0.1-1.2 [facility] Comment on above: Performed By: #### 2 432-8 ####MELISA Galvan (91296)[facility] ()[address] [place] [address] Calcium [Mass/Vol] 7.9 mg/dL Low 8.5-10.4 [facility] Comment on above: Performed By: #### 2 4323-8 ####MELISA Galvan (99534)[facility] ()[address] [place] [address] Chloride [Moles/Vol] 110 mmol/L High 97-107 [facility] Comment on above: Performed By: #### 2 4323-8 ####MELISA Galvan (50775)[facility] ()[address] [place] [address] CO2 [Moles/Vol] 21 mmol/L Low 24-31 [facility] Comment on above: Performed By: #### 2 4323-8 ####MELISA Galvan (91816)[facility] ()[address] [place] [address] Creatinine [Mass/Vol] 0.80 mg/dL Normal 0.40-1.60 [facility] Comment on above: Performed By: #### 2 4323-8 ####MELISA Galvan ([id number])[facility] ()[address] [place] [address] GFR/1.73 sq M.predicted MDRD (S/P/Bld) [Vol rate/Area] mL/min/{1.73_m2} Normal >60 [facility] Comment on above: Result Comment: Calc ulations of estimated GFR are performed using the 2020 CKD-EPI Study Refit equation without the race variable for the IDMS-Traceable creatinine methods. https://jasn.asnjournals.org/content/early//ASN.84664354 88 Performed By: #### 2 4323-8 ####MELISA Galvan (28992)[facility] ()[address] [place] [address] Glucose [Mass/Vol] 82 mg/dL Normal 65-99 [facility] Comment on above: Performed By: #### 2 4323-8 ####MELISA Galvan ([id number])[facility] ()[address] [place] [address] Potassium [Moles/Vol] 3.7 mmol/L Normal 3.4-5.1 [facility] Comment on above: Performed By: #### 2 4323-8 ####MELISA Galvan (80484)[facility] ()[address] [place] [address] Protein [Mass/Vol] 5.5 g/dL Low 5.9-7.9 [facility] Comment on above: Performed By: #### 2 4323-8 ####MELISA Galvan ([id number])[facility] ()[address] [place] [address] Sodium [Moles/Vol] 141 mmol/L Normal 133-145 [facility] Comment on above: Performed By: #### 2 4323-8 ####MELISA POOLESarwat Galvan ([id number])[facility] ()[address] [place] [address] Urea nitrogen [Mass/Vol] 8 mg/dL Normal 8-25 [facility] Comment on above: Performed By: #### 2 4323-8 ####MELISA POOLESarwat Galvan ([id number])[facility] ()[address] [place] [address] Consent for Treatmenton 02-17 Consent for Treatment [id number] [id number] 972#1.00TIFF Normal [facility] Discharge Instructionson Discharge Instructions [id number] 21#1.00TIFF Normal [facility] Comment on above: Other Comment: wrong folder ED Clinical Summaryon 2023 ED Clinical Summary Normal [facility] ED Note-Nursingon 03-16-2023 ED Note-Nursing called report to Thu PRICE, . Normal [facility] ED Note-Physicianon 03-16-19 ED Note-Physician Normal [facility] Comment on above: Result Comment: Elec tronically Signed By: Earnest Jett DO\.br\Date and Time Signed: 03/16/23 11:17 EST ED Patient Education Noteon 03-16-2023 ED Patient Education Note Normal [facility] ED Patient Summaryon 024 ED Patient Summary Normal [facility] HEMATOLOGYOrdered By: SYSTEM SYSTEM on 03-16-2023 Basophil [...] Normal 80.0 - 100.0 fL Remisol Heme Cabell Absolute 0.3 E9/L Normal 0.2 - 1.0 [...] 03-16-2023 Albumin [Mass/Vol] 3.8 g/dL Normal 3.3-5.0 [facility] Comment on above: Performed By: #### 2 777473, 36984118, 5258018, 4959530, 1944251, 3799633 ####[facility] [address] [place] [address] Albumin/Globulin [Mass ratio] 1.5 {ratio} Normal 1.1-2.2 [facility] Comment on above: Performed By: #### 2 082094, 47692836, 8835188, 4183288, 2177613, 4366916 ####[facility] [address] [place] [address] Alk Phos 62 Int._Unit/L Normal 21-98 [facility] Comment on above: Performed By: #### 2 598807, 43203522, 6065909, 8689829, 0831794, 2669532 ####[facility] [address] [place] [address] ALT 21 Int._Unit/L Normal 6-46 [facility] Comment on above: Performed By: #### 2 596318, 61724066, 4622595, 4729388, 2828667, 5197841 ####[address] [address] AST 37 Int._Unit/L Normal 5-43 [facility] Comment on above: Performed By: #### 2 569306, 54257505, 6627629, 9504747, 0528829, 8683005 ####[facility] [address] [place] [address] Bili Direct 0.1 mg/dL Normal 0.0-0.4 [facility] Comment on above: Performed By: #### 2 437594, 92967668, 0376857, 9988270, 8381625, 2761002 ####[facility] [address] [place] [address] Bili Indirect 0.2 mg/dL Normal 0.1-0.9 [facility] Comment on above: Performed By: #### 2 580516, 57303952, 5298074, 1314297, 2140667, 1849935 ####[facility] [address] [place] [address] Bili Total 0.3 mg/dL Normal 0.0-1.1 [facility] Comment on above: Performed By: #### 2 390192, 64731789, 7058487, 5686357, 0234971, 0904323 ####[facility] [address] [place] [address] Globulin (S) [Mass/Vol] 2.6 g/dL Normal 1.4-4.0 [facility] Comment on above: Performed By: #### 2 216827, 48875302, 4770194, 1269449, 3294561, 1555859 ####[facility] [address] [place] [address] Protein [Mass/Vol] 6.4 g/dL Normal 6.0-7.8 [facility] Comment on above: Performed By: #### 2 880877, 64311154, 9039488, 5856955, 8074121, 4264367 ####[facility] [address] [place] [address] Influenza virus A and B and SARS-CoV-2 (COVID-19) identified HANK+probe Nom (Resp)on 03-16-2023 FLUAV RNA HANK+probe Ql (Resp) Not detected Not Detected [facility] FLUBV RNA HANK+probe Ql (Resp) Not detected Not Detected [facility] Interpretation and review of laboratory results Normal [facility] SARS-CoV-2 (COVID-19) RNA HANK+probe Ql (Resp) Not detected Not Detected [facility] This assay has received FDA Emergency Use [...] has been validated for use at [facility]. Negative results do not preclude COVID-19 infections or Influenza A/B infections, and should not be used as the sole basis for diagnosis, treatment, or other management decisions. If Influenza A/B and RSV PCR results are negative, testing for Parainfluenza virus, Adenovirus and Metapneumovirus is routinely performed for [facility] pediatric oncology and intensive care inpatients, and is available on other patients by placing an add-on request. [facility] FLUAV RNA HANK+probe Ql (Resp) Not detected Normal Not Detected [facility] Comment on above: Order Comment: This assay [...] has been validated for use at [facility]. Negative results do not preclude COVID-19 infections or Influenza A/B infections, and should not be used as the sole basis for diagnosis, treatment, or other management decisions. If Influenza A/B and RSV PCR results are negative, testing for Parainfluenza virus, Adenovirus and Metapneumovirus is routinely performed for [facility] pediatric oncology and intensive care inpatients, and is available on other patients by placing an add-on request. Performed By: #### 5 2969-3 #### ALON Johnson ([id number]) [facility] ([facility]) [address] [place] [address] FLUBV RNA HANK+probe Ql (Resp) Not detected Normal Not Detected [facility] Comment on above: Order Comment: This assay [...] has been validated for use at [facility]. Negative results do not preclude COVID-19 infections or Influenza A/B infections, and should not be used as the sole basis for diagnosis, treatment, or other management decisions. If Influenza A/B and RSV PCR results are negative, testing for Parainfluenza virus, Adenovirus and Metapneumovirus is routinely performed for [facility] pediatric oncology and intensive care inpatients, and is available on other patients by placing an add-on request. Performed By: #### 5 2969-3 #### ALON Johnson ([id number]) [facility] ([facility]) [address] [place] [address] SARS-CoV-2 (COVID-19) RNA HANK+probe Ql (Resp) Not detected Normal Not Detected [facility] Comment on above: Order Comment: This assay [...] has been validated for use at [facility]. Negative results do not preclude COVID-19 infections or Influenza A/B infections, and should not be used as the sole basis for diagnosis, treatment, or other management decisions. If Influenza A/B and RSV PCR results are negative, testing for Parainfluenza virus, Adenovirus and Metapneumovirus is routinely performed for [facility] pediatric oncology and intensive care inpatients, and is available on other patients by placing an add-on request. Performed By: #### 5 2969-3 #### ALON Johnson ([id number]) [facility] ([facility]) [address] [place] [id number] Lactic Acidon 03-16-2023 Lactic Acid Lvl 0.6 mmol/L Normal 0.5-2.2 [facility] Comment on above: Performed By: #### 2 112673, 16032700, 9541373, 6369336, 2863167, 0073713 ####[facility] [address] [place] [address] Lipase Levelon 03-16-2023 Lipase Lvl 95 unit/L High 13-58 [facility] Comment on above: Performed By: #### 2 463730, 16928756, 2480313, 0336105, 8150971, 7058560 ####[facility] [address] [place] [address] Pre-Arrival Noteon Pre-Arrival Note Normal [facility] Transfer Documentson 024 Transfer Documents [id number] 04#1.00TIFF Normal [facility] eGFRon 03-16-2023 eGFR 99 mL/min/1.73 m2 Normal >=59 [facility] Comment on above: Order Comment: Order added by Discern Expert. Performed By: #### 2 247290, 41122557, 7866841, 7609291, 0361203, 4050920 ####[facility] [address] [place] [address] BB Draw & Holdon 03-15-2023 BB D&H Sample drawn for Blood Ba Normal [facility] Comment on above: Performed By: #### 2 170076, 05547316, 23865445, 6030603, 3871297, 0445126, 03127231, 9989195, 87607118 ####[facility] [address] [place] [address] BMPon 03-15-2023 Anion gap [Moles/Vol] 12 mmol/L Normal 6-16 [facility] Comment on above: Performed By: #### 2 903009, 23658421, 37054840, 3866586, 9135093, 1718305, 07139207, 9057025, 74659629 ####[facility] [address] [place] [address] BUN/Creat Ratio 10 No Units Normal 10-20 [facility] Comment on above: Performed By: #### 2 028558, 85151947, 63543309, 2499580, 6904249, 3711428, 86648400, 3723159, 24070750 ####[facility] [address] [place] [address] Calcium [Mass/Vol] 8.5 mg/dL Low 8.9-11.1 [facility] Comment on above: Performed By: #### 2 846977, 37345744, 24847878, 6517183, 0937997, 8528266, 31044905, 0051807, 46326780 ####[facility] [address] [place] [address] Chloride [Moles/Vol] 110 mmol/L Normal 101-111 [facility] Comment on above: Performed By: #### 2 885841, 70932099, 31912955, 9875377, 6472836, 4930847, 97077599, 6928934, 86981506 ####[facility] [address] [place] [address] CO2 [Moles/Vol] 22 mmol/L Normal 21-31 [facility] Comment on above: Performed By: #### 2 960702, 56224224, 29865048, 1884419, 5392133, 5642502, 47275878, 4948824, 99650373 ####[facility] [address] [place] [address] Creatinine [Mass/Vol] 0.8 mg/dL Normal 0.5-1.3 [facility] Comment on above: Performed By: #### 2 835126, 82247769, 69501300, 3626902, 7086321, 6356609, 34081096, 6642276, 60659252 ####[facility] [address] [place] [address] Glucose [Mass/Vol] 79 mg/dL Normal 55-199 [facility] Comment on above: Performed By: #### 2 220230, 48301807, 41220659, 7855504, 5047794, 9001822, 83189010, 7837830, 04820390 ####[facility] [address] [place] [address] Potassium [Moles/Vol] 3.6 mmol/L Normal 3.5-5.3 [facility] Comment on above: Performed By: #### 2 964400, 26408179, 80341034, 4567015, 0591014, 7161804, 84759007, 4481324, 38551540 ####[facility] [address] [place] [address] Sodium [Moles/Vol] 140 mmol/L Normal 135-145 [facility] Comment on above: Performed By: #### 2 427069, 87479424, 60997777, 7487132, 3305767, 7346354, 94980298, 8443481, 15098437 ####[facility] [address] [place] [address] Urea nitrogen [Mass/Vol] 8 mg/dL Normal 5-21 [facility] Comment on above: Performed By: #### 2 970207, 18803457, 97973436, 1928794, 8773295, 4336565, 35339840, 3387826, 38515966 ####[facility] [address] [place] [address] CBC w/ Auto Diffon 4 Basophil Absolute 0.1 E9/L Normal 0.0-0.2 [facility] Comment on above: Performed By: #### 2 246877, 44972734, 55428653, 8615859, 2577402, 8327537, 33482401, 0315328, 02538856 ####[facility] [address] [place] [address] Basophils/100 WBC (Bld) 0.9 % Normal 0.0-2.0 [facility] Comment on above: Performed By: #### 2 724614, 13208365, 01835772, 1024848, 1715839, 5496863, 78291657, 0521116, 29933077 ####[address] [place] [address] Eos Absolute 0.6 E9/L High 0.0-0.5 [facility] Comment on above: Performed By: #### 2 195427, 48245078, 64620961, 2453879, 7187337, 4792839, 61912769, 0584927, 59890273 ####[address] [place] [address] Eosinophils/100 WBC (Bld) 9.6 % High 0.0-8.0 [facility] Comment on above: Performed By: #### 2 405748, 17789387, 63127346, 2260313, 8341320, 0022171, 48744198, 0119871, 19748486 ####[address] [place] [address] Erythrocyte distribution width (RBC) [Ratio] 13.2 % Normal 10.9-14.2 [facility] Comment on above: Performed By: #### 2 021412, 82543289, 71973766, 3550704, 1605158, 4722091, 21566268, 9900128, 17280942 ####[address] [place] [address] Hematocrit (Bld) [Volume fraction] 36.0 % Normal 34.0-46.0 [facility] Comment on above: Performed By: #### 2 711405, 31769908, 51593375, 1082255, 6228005, 1731162, 61048767, 2724518, 62412277 ####[facility] [address] [place] [address] Hemoglobin (Bld) [Mass/Vol] 12.2 g/dL Normal 12.0-16.0 [facility] Comment on above: Performed By: #### 2 836780, 73026453, 03004092, 5597029, 9850493, 7508933, 34673348, 8215083, 13895045 ####[address] [place] [address] Lymph Absolute 2.0 E9/L Normal 1.0-4.0 [facility] Comment on above: Performed By: #### 2 392922, 20204307, 75439551, 3836752, 5152832, 0819619, 47567101, 5751103, 95007462 ####[address] [address] Lymphocytes/100 WBC (Bld) 32.4 % Normal 14.0-50.0 [facility] Comment on above: Performed By: #### 2 314942, 74124477, 35353522, 8836812, 9486099, 5029871, 80708412, 1477532, 15182555 ####[address] [place] [address] MCH (RBC) [Entitic mass] 30.6 pg Normal 27.0-34.0 [facility] Comment on above: Performed By: #### 2 354605, 47952535, 45549442, 1145101, 7733722, 2256305, 76675871, 2015762, 61246212 ####[address] [place] [address] MCHC (RBC) [Mass/Vol] 34.3 g/dL Normal 31.4-36.0 [facility] Comment on above: Performed By: #### 2 246096, 33534217, 37226483, 8818592, 4095433, 2768580, 57455510, 4578678, 00484514 ####[facility] [address] [place] [address] MCV (RBC) [Entitic vol] 89.0 fL Normal 80.0-100.0 [facility] Comment on above: Performed By: #### 2 219963, 28589671, 05055721, 6494217, 7822971, 5726275, 19901515, 9084475, 25394791 ####[facility] [address] [place] [address] Cabell Absolute 0.3 E9/L Normal 0.2-1.0 [facility] Comment on above: Performed By: #### 2 456413, 33970023, 84610051, 1820245, 3260606, 4814612, 62168962, 3626712, 19637866 ####[facility] [address] [place] [address] Monocytes/100 WBC (Bld) 5.6 % Normal 4.0-14.0 [facility] Comment on above: Performed By: #### 2 262552, 78201206, 60285700, 5528564, 4105021, 5449832, 88425078, 2685923, 87494782 ####[facility] [address] [place] [address] Neutro Absolute 3.2 E9/L Normal 2.0-7.5 [facility] Comment on above: Performed By: #### 2 903367, 38874492, 01635835, 0601432, 9185248, 8811859, 38436222, 5285753, 17509729 ####[facility] [address] [place] [address] Neutro Auto 51.5 % Normal 36.0-75.0 [facility] Comment on above: Performed By: #### 2 775854, 77739388, 48663134, 0371021, 0952141, 9680418, 82532590, 0582141, 41292262 ####[facility] [address] [place] [address] Platelet 309.0 E9/L Normal 150.0-500.0 [facility] Comment on above: Result Comment: Demetra meneses with slide review Performed By: #### 2 582060, 73811264, 91446075, 6385717, 0556897, 1556295, 90149834, 3333808, 08621681 ####[facility] [address] [place] [address] Platelet mean volume (Bld) [Entitic vol] 9.1 fL Normal 6.4-10.8 [facility] Comment on above: Performed By: #### 2 750049, 72985568, 81085535, 9757464, 2985091, 6841051, 37225686, 6568210, 35896138 ####[facility] [address] [place] [address] RBC 4.0 E12/L Low 4.3-5.9 [facility] Comment on above: Performed By: #### 2 960190, 29399180, 69563400, 4286151, 9290888, 6562570, 53201937, 6737380, 75703834 ####[facility] [address] [place] [address] WBC 6.1 E9/L Normal 4.0-11.0 [facility] Comment on above: Performed By: #### 2 406446, 32830870, 96182339, 8695530, 9706548, 7565496, 57397472, 4513005, 85029749 ####[facility] [address] [place] [address] CHEMISTRYOrdered By: SYSTEM SYSTEM on 03-15-2023 Lactic [...] Chem Comment on above: Interpretive Data: T melba 95% CI (Confidence Interval) PPV (Positive Predictive [...] - 20 Remisol Chem COAGULATIONOrdered By: Storm Baca on 03-15-2023 aPTT Coag (PPP) [Time] 32.3 s Normal 25.1 - 36.5 second(s) [facility] Auto Coag Comment on above: Interpretive Data: [...] the same coagulation reagent and instrumentation as [facility]. Currently there are no coagulation studies available worldwide for children to 14 days, and no normal ranges. Heparin therapeutic range (represented by Anti-Factor Xa activity of 0.2 - 0.4 U/mL) corresponds to PTT of 56.6 - 109.0 sec. INR Coag (PPP) [Relative time] 1.1 {INR} Invalid Interpretation Code [facility] Auto Coag Comment on above: Interpretive Data: I NR results are specifically intended to assess patients stabilized on long-term Anticoagulation therapy suggested INR s Less Intensive Anticoagulation 2.0 3.0 Conventional Range 3.0 4.5 PT Coag (PPP) [Time] 12.6 s High 9.4 - 12.5 second(s) [facility] Auto Coag Comment on above: Interpretive Data: [...] the same coagulation reagent and instrumentation as [facility]. Currently there are no coagulation studies available worldwide for children to 14 days, and no normal ranges. CT Abdomen/Pelvis w/o Contra ston 03-15-2023 CT Abdomen/Pelvis w/o Contrast Normal [facility] Consent for Treatmenton 02-16 Consent for Treatment [id number] 3B#1.00TIFF Normal [facility] Discharge Instructionson Discharge Instructions [id number] 236#1.00TIFF Normal [facility] ED Clinical Summaryon 2023 ED Clinical Summary Normal [facility] ED Note-Physicianon 03-15-19 ED Note-Physician Normal [facility] Comment on above: Result Comment: Elec tronically Signed By: Earnest Jett DO\.br\Date and Time Signed: 03/15/23 17:31 EST ED Patient Education Noteon 03-15-2023 ED Patient Education Note Normal [facility] ED Patient Summaryon 024 ED Patient Summary Normal [facility] EMS Documentationon 03-15-19 EMS Documentation Please click on link to see report Normal [facility] Comment on above: Result Comment: Miss ing Attachment - attachment exceeds size limitation [email or web address] Can be viewed in source system HEMATOLOGYOrdered By: SYSTEM SYSTEM on 03-15-2023 Basophil [...] Normal 80.0 - 100.0 fL Remisol Heme Cabell Absolute 0.3 E9/L Normal 0.2 - 1.0 [...] 03-15-2023 Albumin [Mass/Vol] 3.6 g/dL Normal 3.3-5.0 [facility] Comment on above: Performed By: #### 2 577194, 37701515, 41904613, 7559157, 7975273, 6812850, 31480349, 7367095, 88919060 ####[facility] [address] [place] [address] Albumin/Globulin [Mass ratio] 1.4 {ratio} Normal 1.1-2.2 [facility] Comment on above: Performed By: #### 2 512719, 96737470, 65039176, 0166278, 1183643, 9987357, 48945778, 7357405, 21795534 ####[facility] [address] [place] [address] Alk Phos 64 Int._Unit/L Normal 21-98 [facility] Comment on above: Performed By: #### 2 755950, 84834078, 98368634, 0778405, 2019184, 8490320, 32423521, 4717798, 80368386 ####[facility] [address] [place] [address] ALT 20 Int._Unit/L Normal 6-46 [facility] Comment on above: Performed By: #### 2 642805, 55122318, 71744435, 8256448, 1194101, 0653814, 03758012, 3574072, 17959409 ####[facility] [address] [place] [address] AST 35 Int._Unit/L Normal 5-43 [facility] Comment on above: Performed By: #### 2 846844, 91509218, 87973260, 7432310, 4063300, 0887605, 15431767, 0521840, 25104707 ####[facility] [address] [place] [address] Bili Direct 0.0 mg/dL Normal 0.0-0.4 [facility] Comment on above: Performed By: #### 2 221751, 41807278, 78682789, 5092175, 6514543, 5334472, 05990316, 2246804, 77647097 ####[facility] [address] [place] [address] Bili Indirect 0.2 mg/dL Normal 0.1-0.9 [facility] Comment on above: Performed By: #### 2 457008, 13338357, 72983046, 8586882, 6124670, 3042951, 59468968, 1518719, 42027752 ####[facility] [address] [place] [address] Bili Total 0.2 mg/dL Normal 0.0-1.1 [facility] Comment on above: Performed By: #### 2 411759, 08249315, 00837292, 2348289, 7325558, 9104856, 19107499, 3512327, 42980978 ####[address] [place] [address] Globulin (S) [Mass/Vol] 2.6 g/dL Normal 1.4-4.0 [facility] Comment on above: Performed By: #### 2 502194, 77641532, 58460585, 4617301, 1122366, 4960185, 07627756, 3018007, 71783984 ####[facility] [address] [place] [address] Protein [Mass/Vol] 6.2 g/dL Normal 6.0-7.8 [facility] Comment on above: Performed By: #### 2 330385, 74216476, 46319900, 1933368, 8118965, 2831426, 00668164, 7865239, 53945907 ####[address] [place] [address] [facility] Record[facility] 2023 Home Health Records [id number] 1#1.00TIFF Normal [facility] Lactic Acidon 03-15-2023 Lactic Acid Lvl 0.7 mmol/L Normal 0.5-2.2 [facility] Comment on above: Performed By: #### 2 898728, 49590499, 23241578, 4710095, 1853525, 8309925, 98926809, 7011647, 78908103 ####[facility] [address] [facility] [place] [address] Lipase Levelon 03-15-2023 Lipase Lvl 115 unit/L High 13-58 [facility] Comment on above: Performed By: #### 2 482359, 02206835, 32434862, 6800520, 8387155, 3028343, 43454904, 5270763, 51529408 ####[facility] [address] [place] [address] PT & PTTon 03-15-2023 aPTT Coag (PPP) [Time] 32.3 second(s) Normal 25.1-36.5 [facility] Comment on above: Result Comment: Para [...] the same coagulation reagent and instrumentation as [facility]. Currently there are no coagulation studies available worldwide for children to 14 days, and no normal ranges. Heparin therapeutic range (represented by Anti-Factor Xa activity of 0.2 - 0.4 U/mL) corresponds to PTT of 56.6 - 109.0 sec. Performed By: #### 2 069249, 00254675, 52894760, 6548917, 8020061, 6859188, 92913660, 8277415, 29629045 ####[facility] [address] [place] [address] INR Coag (PPP) [Relative time] 1.1 {INR} Invalid Interpretation Code [facility] Comment on above: Result Comment: INR results are specifically intended to assess patients stabilized on long-term Anticoagulation therapy suggested INR?s ?Less Intensive Anticoagulation? 2.0 ? 3.0Conventional Range 3.0 ? 4.5 Performed By: #### 2 937365, 39289536, 06474223, 2543814, 2883198, 1779474, 67851007, 9055155, 71636276 ####[facility] [address] [place] [address] PT Coag (PPP) [Time] 12.6 second(s) High 9.4-12.5 [facility] Comment on above: Result Comment: 15 [...] the same coagulation reagent and instrumentation as [facility]. Currently there are no coagulation studies available worldwide for children to 14 days, and no normal ranges. Performed By: #### 2 497504, 31271611, 64510035, 2511018, 4805789, 5694470, 08720000, 4983147, 27219861 ####[facility] [address] [place] [address] Pre-Arrival Noteon Pre-Arrival Note Normal [facility] Troponin 0 Hr.on 03-15-2023 Troponin I.cardiac [Mass/Vol] ng/mL Low 10.10-27.10 [facility] Comment on above: Result Comment: The 95% CI (Confidence Interval) PPV (Positive Predictive Value) for myocardial infarction in females is 38 pg/mL, in males 51 pg/mL. The results should be used in conjunction with clinical conditions of myocardial infarction.(Access High Sensitivity Troponin I Instructions For Use, Alan Garber, September 2017) Performed By: #### 2 614080, 40511095, 23957577, 9291130, 8650749, 3102803, 18887906, 9587472, 24089044 ####[facility] [address] [place] [address] UA With Cult Reflexon 2023 Bilirubin Ql (U) Negative Normal Negative [facility] Comment on above: Performed By: #### 1 9933632 ####[address] [address] Clarity (U) CLEAR Normal Clear [facility] Comment on above: Performed By: #### 1 6522307 ####[address] [address] Color (U) ORANGE Abnormal Yellow [facility] Comment on above: Performed By: #### 1 9643350 ####[facility] [address] [place] [address] Crystals LM Ql (Urine sed) Present Normal [facility] Comment on above: Performed By: #### 1 0812520 ####[address] [address] Epithelial cells.squamous LM.HPF (Urine sed) [#/Area] 0-2 Normal 0-2 [facility] Comment on above: Performed By: #### 1 0388459 ####[facility] [address] [place] [address] Glucose Test strip (U) [Mass/Vol] TRACE Abnormal Negative [facility] Comment on above: Performed By: #### 1 [id number] ####[facility] [address] [place] [address] Hemoglobin Ql (U) Negative Normal Negative [facility] Comment on above: Performed By: #### 1 [id number] ####[address] [address] Ketones (U) [Mass/Vol] Negative Normal Negative [facility] Comment on above: Performed By: #### 1 [id number] ####[address] [address] [place].plasma/Lith ium.RBC (Bld) [Mass ratio] 0-3 Normal 0-3 [facility] Comment on above: Performed By: #### 1 [id number] ####[address] [address] Nitrite Ql (U) See Comment Normal Negative [facility] Comment on above: Result Comment: Test Not Performed Due To Interfering Substance Performed By: #### 1 [id number] ####[address] [address] pH (U) 7.0 [pH] Invalid Interpretation Code 5.0-9.0 [facility] Comment on above: Performed By: #### 1 [id number] ####[address] [address] Protein (U) [Mass/Vol] 1+ Abnormal Negative [facility] Comment on above: Performed By: #### 1 [id number] ####[address] [address] Specific gravity (U) [Rel density] 1.010 Invalid Interpretation Code 1.005-1.030 [facility] Comment on above: Performed By: #### 1 [id number] ####[address] [address] Type of Urine collection method Clean Catch Normal [facility] Comment on above: Performed By: #### 1 [id number] ####[address] [address] Urobilinogen Qn (U) See Comment Normal 0.0-1.0 [facility] Comment on above: Result Comment: Test Not Performed Due To Interfering Substance Performed By: #### 1 [id number] ####[address] [place] [address] WBC Auto Ql (U) Negative Normal Negative [facility] Comment on above: Performed By: #### 1 [id number] ####[facility] [address] [place] [address] WBC LM.HPF (Urine sed) [#/Area] 0-5 Normal 0-5 [facility] Comment on above: Performed By: #### 1 [id number] ####[facility] [address] [place] [address] URINALYSISOrdered By: Alcira Lee on 03-15-2023 Bilirubin Ql (U) Negative (03/15/23 2:43 PM) Normal Negative [facility] UA Auto SS Clarity (U) Clear (03/15/23 2:43 PM) Normal Clear [facility] UA Auto SS Color (U) [place] *ABN* (03/15/23 2:43 PM) Invalid Interpretation Code [...] PM) Normal Negative [facility] UA Auto SS [place].plasma/Lith ium.RBC (Bld) [Mass ratio] 0-3 /HPF Normal [...] PM) Invalid Interpretation Code 1.005 - 1.030 [facility] UA Auto SS UA Spec Desc Clean Catch (03/15/23 2:43 PM) Normal [facility] UA Auto SS Urobilinogen Qn (U) See Comment 2 (03/15/23 2:43 PM) Normal 0.0 - 1.0 [facility] Comment on above: Result Comment: Test Not Performed Due To Interfering Substance WBC Auto Ql (U) Negative (03/15/23 2:43 PM) Normal Negative [facility] UA Auto SS WBC LM.HPF (Urine sed) [#/Area] 0-5 /HPF Normal 0-5/HPF [facility] UA Auto SS XR Chest Single Viewon 03-15 XR Chest Single View Normal [facility] eGFRon 03-15-2023 eGFR 99 mL/min/1.73 m2 Normal >=59 [facility] Comment on above: Order Comment: Order added by Discern Expert. Performed By: #### 2 [id number], [id number], [id number], [id number], [id number], [id number], [id number], [id number], [id number] ####[facility] [address] [place] [address] Basic metabolic 2000 panelon 03-10-2023 Anion gap [Moles/Vol] 11 mmol/L NINF - 19 mmol/L [facility] Calcium [Mass/Vol] 8.0 mg/dL Low 8.5 - 10.4 mg/dL [facility] Chloride [Moles/Vol] 108 mmol/L High 97 - 107 mmol/L [facility] CO2 [Moles/Vol] 22 mmol/L Low 24 - 31 mmol/L [facility] Creatinine [Mass/Vol] 0.60 mg/dL 0.40 - 1.60 mg/dL [facility] eGFR - PINF [facility] Comment on above: Calculations of jessica mated GFR are performed using the 2020 CKD-EPI Study Refit equation without the race variable for the IDMS-Traceable creatinine methods. https://jasn.asnjournals.org/content//ASN.79393558 88 Glucose [Mass/Vol] 89 mg/dL 65 - 99 mg/dL [facility] Interpretation and review of laboratory results Abnormal [facility] Potassium [Moles/Vol] 3.7 mmol/L 3.4 - 5.1 mmol/L [facility] Sodium [Moles/Vol] 141 mmol/L 133 - 145 mmol/L [facility] Urea nitrogen [Mass/Vol] 4 mg/dL Low 8 - 25 mg/dL [facility] Anion gap [Moles/Vol] 11 mmol/L Normal <=19 [facility] Comment on above: Performed By: #### 5 2969-3 #### ALON AMBROSIO L ([id number]) [facility] ([facility]) [address] [place] [address] Calcium [Mass/Vol] 8.0 mg/dL Low 8.5-10.4 [facility] Comment on above: Performed By: #### 5 2969-3 #### ALON AMBROSIO L ([id number]) [facility] ([facility]) [address] [place] [address] Chloride [Moles/Vol] 108 mmol/L High 97-107 [facility] Comment on above: Performed By: #### 5 2969-3 #### ALON MARINMOTZER L ([id number]) [facility] ([facility]) [address] [place] [address] CO2 [Moles/Vol] 22 mmol/L Low 24-31 [facility] Comment on above: Performed By: #### 5 2969-3 #### ALON AMBROSIO L ([id number]) [facility] ([facility]) [address] [place] [address] Creatinine [Mass/Vol] 0.60 mg/dL Normal 0.40-1.60 [facility] Comment on above: Performed By: #### 5 2969-3 #### ALON AMBROSIO L ([id number]) [facility] ([facility]) [address] [place] [address] GFR/1.73 sq M.predicted MDRD (S/P/Bld) [Vol rate/Area] mL/min/{1.73_m2} Normal >60 [facility] Comment on above: Result Comment: Calc ulations of estimated GFR are performed using the 2020 CKD-EPI Study Refit equation without the race variable for the IDMS-Traceable creatinine methods. https://jasn.asnjournals.org/content/early//ASN.43544340 88 Performed By: #### 5 2969-3 #### ALON PRECIADOER L ([id number]) [facility] ([facility]) [address] [place] [address] Glucose [Mass/Vol] 89 mg/dL Normal 65-99 [facility] Comment on above: Performed By: #### 5 2969-3 #### ALON MARINMOTZER L ([id number]) [facility] ([facility]) [address] [place] [address] Potassium [Moles/Vol] 3.7 mmol/L Normal 3.4-5.1 [facility] Comment on above: Performed By: #### 5 2969-3 #### ALON SCHMOTZER L ([id number]) [facility] ([facility]) [id number] [place] [address] Sodium [Moles/Vol] 141 mmol/L Normal 133-145 [facility] Comment on above: Performed By: #### 5 2969-3 #### ALON SCHMOTZER L ([id number]) [facility] ([facility]) [address] [place] [address] Urea nitrogen [Mass/Vol] 4 mg/dL Low 8-25 [facility] Comment on above: Performed By: #### 5 2969-3 #### ALON SCHMOTZER L ([id number]) [facility] ([facility]) [address] [place] [address] CBC panel Auto (Bld)on 03-10 Erythrocyte distribution width (RBC) [Ratio] 12.9 % 11.5 - 14.5 % [facility] Hematocrit (Bld) [Volume fraction] 31.3 % Low 36.0 - 46.0 % [facility] Hemoglobin (Bld) [Mass/Vol] 10.6 g/dL Low 12.0 - 16.0 g/dL [facility] Interpretation and review of laboratory results Abnormal [facility] MCH (RBC) [Entitic mass] 30.7 pg 26.0 - 34.0 pg [facility] MCHC (RBC) [Mass/Vol] 33.9 g/dL 32.0 - 36.0 g/dL [facility] MCV (RBC) [Entitic vol] 91 fL 80 - 100 fL [facility] Nucleated RBC/100 WBC (Bld) [Ratio] 0.0 % [facility] Platelets (Bld) [#/Vol] 215 10*3/uL [facility] RBC (Bld) [#/Vol] 3.45 10*6/uL [facility] WBC (Bld) [#/Vol] 4.0 10*3/uL [facility] Erythrocyte distribution width (RBC) [Ratio] 12.9 % Normal 11.5-14.5 [facility] Comment on above: Performed By: #### 5 2969-3 #### ALON Johnson ([id number]) [facility] ([facility]) [address] [place] [address] Hematocrit (Bld) [Volume fraction] 31.3 % Low 36.0-46.0 [facility] Comment on above: Performed By: #### 5 2969-3 #### ALON Johnson ([id number]) [facility] ([facility]) [address] [place] [address] Hemoglobin (Bld) [Mass/Vol] 10.6 g/dL Low 12.0-16.0 [facility] Comment on above: Performed By: #### 5 2969-3 #### ALON Johnson ([id number]) [facility] ([facility]) [address] [place] [address] MCH (RBC) [Entitic mass] 30.7 pg Normal 26.0-34.0 [facility] Comment on above: Performed By: #### 5 2969-3 #### ALON Johnson ([id number]) [facility] ([facility]) [address] [place] [address] MCHC (RBC) [Mass/Vol] 33.9 g/dL Normal 32.0-36.0 [facility] Comment on above: Performed By: #### 5 2969-3 #### ALON Johnson ([id number]) [facility] ([facility]) [address] [place] [address] MCV (RBC) [Entitic vol] 91 fL Normal 80-100 [facility] Comment on above: Performed By: #### 5 2969-3 #### ALON Johnson ([id number]) [facility] ([facility]) [address] [place] [address] Nucleated RBC/100 WBC (Bld) [Ratio] 0.0 /100 WBCs Normal 0.0-0.0 [facility] Comment on above: Performed By: #### 5 2969-3 #### ALON Johnson ([id number]) [facility] ([facility]) [address] [place] [address] Platelets (Bld) [#/Vol] 215 x10*3/uL Normal 150-450 [facility] Comment on above: Performed By: #### 5 2969-3 #### ALON Johnson ([id number]) [facility] ([facility]) [address] [place] [address] RBC (Bld) [#/Vol] 3.45 x10*6/uL Low 4.00-5.20 [facility] Comment on above: Performed By: #### 5 2969-3 #### ALON Johnson ([id number]) [facility] ([facility]) [address] [place] [address] WBC (Bld) [#/Vol] 4.0 x10*3/uL Low 4.4-11.3 [facility] Comment on above: Performed By: #### 5 2969-3 #### ALON Johnson ([id number]) [facility] ([facility]) [address] [place] [address] Gastrointestinal pathogens i dentified HANK+probe Nom (Stl)Ordered By: Edwige Bronson on 03-10-2023 Campylobacter Group Not detected Not Detected [facility] E. coli stx1 gene HANK+probe Ql (Stl) Not detected Not Detected [facility] E. coli stx2 gene HANK+probe Ql (Stl) Not detected Not Detected [facility] Interpretation and review of laboratory results Normal [facility] Norovirus genogroup I and II RNA HANK+probe Nom (Stl) Not detected Not Detected [facility] Rotavirus RNA HANK+probe Nom (Stl) Not detected Not Detected [facility] Salmonella species Not detected Not Detected [facility] Shigella sp DNA HANK+probe Ql (Unsp spec) Not detected Not Detected [facility] Vibrio Group Not detected Not Detected [facility] Y. enterocolitica DNA HANK+probe Ql (Stl) Not detected Not Detected [facility] Glucose Test strip manual (B ld) [Mass/Vol]on 03-10-2023 Glucose [Mass/Vol] 104 mg/dL High 74 - 99 mg/dL [facility] Interpretation and review of laboratory results Abnormal [facility] Glucose [Mass/Vol] 104 mg/dL High 74-99 [facility] Comment on above: Performed By: #### 5 2969-3 #### ALON Johnson ([id number]) [facility] ([facility]) [address] [place] [id number] Glucose [Mass/Vol] 82 mg/dL 74 - 99 mg/dL [facility] Glucose [Mass/Vol] 109 mg/dL High 74 - 99 mg/dL [facility] Interpretation and review of laboratory results Normal [facility] Interpretation and review of laboratory results Abnormal [facility] Glucose [Mass/Vol] 109 mg/dL High 74-99 [facility] Comment on above: Performed By: #### 5 2969-3 #### ALON Johnson ([id number]) [facility] ([facility]) [address] [place] [address] Glucose [Mass/Vol] 84 mg/dL 74 - 99 mg/dL [facility] Interpretation and review of laboratory results Normal [facility] Glucose [Mass/Vol] 84 mg/dL Normal 74-99 [facility] Comment on above: Performed By: #### 5 2969-3 #### ALON Johnson ([id number]) [facility] ([facility]) [address] [place] [address] Glucose [Mass/Vol] 79 mg/dL 74 - 99 mg/dL [facility] Interpretation and review of laboratory results Normal [facility] Glucose [Mass/Vol] 79 mg/dL Normal 74-99 [facility] Comment on above: Performed By: #### 5 2969-3 #### ALON Johnson ([id number]) [facility] ([facility]) [address] [place] [address] Basic metabolic 2000 panelon 03-09-2023 Anion gap [Moles/Vol] 10 mmol/L NINF - 19 mmol/L [facility] Calcium [Mass/Vol] 8.3 mg/dL Low 8.5 - 10.4 mg/dL [facility] Chloride [Moles/Vol] 105 mmol/L 97 - 107 mmol/L [facility] CO2 [Moles/Vol] 20 mmol/L Low 24 - 31 mmol/L [facility] Creatinine [Mass/Vol] 0.60 mg/dL 0.40 - 1.60 mg/dL [facility] eGFR - PINF [facility] Comment on above: Calculations of jessica mated GFR are performed using the 2020 CKD-EPI Study Refit equation without the race variable for the IDMS-Traceable creatinine methods. https://jasn.asnjournals.org/content/early//ASN.97354788 88 Glucose [Mass/Vol] 98 mg/dL 65 - 99 mg/dL [facility] Interpretation and review of laboratory results Abnormal [facility] Potassium [Moles/Vol] 3.7 mmol/L 3.4 - 5.1 mmol/L [facility] Sodium [Moles/Vol] 135 mmol/L 133 - 145 mmol/L [facility] Urea nitrogen [Mass/Vol] mg/dL Low 8 - 25 mg/dL [facility] Comment on above: Result rechecked [facility] Anion gap [Moles/Vol] 10 mmol/L Normal <=19 [facility] Comment on above: Performed By: #### 2 4321-2 ####MELISA Galvan ([id number])[facility] ()[address] [place] [address] Calcium [Mass/Vol] 8.3 mg/dL Low 8.5-10.4 [facility] Comment on above: Performed By: #### 2 4321-2 ####MELISA Galvan ([id number])[facility] ()[address] [place] [address] Chloride [Moles/Vol] 105 mmol/L Normal 97-107 [facility] Comment on above: Performed By: #### 2 4321-2 ####MELISA Galvan ([id number])[facility] ()[address] [place] [address] CO2 [Moles/Vol] 20 mmol/L Low 24-31 [facility] Comment on above: Performed By: #### 2 4321-2 ####MELISA Galvan ([id number])[facility] ()[address] [place] [address] Creatinine [Mass/Vol] 0.60 mg/dL Normal 0.40-1.60 [facility] Comment on above: Performed By: #### 2 4321-2 ####MELISA Galvan ([id number])[facility] ()[address] [place] [address] GFR/1.73 sq M.predicted MDRD (S/P/Bld) [Vol rate/Area] mL/min/{1.73_m2} Normal >60 [facility] Comment on above: Result Comment: Calc ulations of estimated GFR are performed using the 2020 CKD-EPI Study Refit equation without the race variable for the IDMS-Traceable creatinine methods. https://jasn.asnjournals.org/content/early/ASN.93459628 88 Performed By: #### 2 4321-2 ####MELISA Galvan ([id number])[facility] ()[address] [place] [address] Glucose [Mass/Vol] 98 mg/dL Normal 65-99 [facility] Comment on above: Performed By: #### 2 4321-2 ####MELISA Galvan ([id number])[facility] ()[address] [place] [address] Potassium [Moles/Vol] 3.7 mmol/L Normal 3.4-5.1 [facility] Comment on above: Performed By: #### 2 4321-2 ####MELISA Galvan ([id number])[facility] ()[address] [place] [address] Sodium [Moles/Vol] 135 mmol/L Normal 133-145 [facility] Comment on above: Performed By: #### 2 4321-2 ####MELISA Galvan (32691)[facility] ()[address] [place] [address] Urea nitrogen [Mass/Vol] mg/dL Low 8-25 [facility] Comment on above: Result Comment: Resu lt rechecked Performed By: #### 2 4321-2 ####MELISA Galvan ([id number])[facility] ()[address] [place] [address] C. difficile toxin A+B tcdA+ tcdB genes HANK+probe Ql (Stl)on 03-09-2023 Interpretation and review of laboratory results Normal [facility] This test is an FDA-cleared real-time PCR [...] performed more than once per 7 days. [facility] C. difficile, PCRon 03-09-19 24 C. difficile toxin A+B tcdA+tcdB genes HANK+probe Ql (Stl) Not detected Not Detected [facility] CBC panel Auto (Bld)on 03-09 Erythrocyte distribution width (RBC) [Ratio] 12.7 % 11.5 - 14.5 % [facility] Hematocrit (Bld) [Volume fraction] 34.6 % Low 36.0 - 46.0 % [facility] Hemoglobin (Bld) [Mass/Vol] 11.7 g/dL Low 12.0 - 16.0 g/dL [facility] Interpretation and review of laboratory results Abnormal [facility] MCH (RBC) [Entitic mass] 30.8 pg 26.0 - 34.0 pg [facility] MCHC (RBC) [Mass/Vol] 33.8 g/dL 32.0 - 36.0 g/dL [facility] MCV (RBC) [Entitic vol] 91 fL 80 - 100 fL [facility] Nucleated RBC/100 WBC (Bld) [Ratio] 0.0 % [facility] Platelets (Bld) [#/Vol] 226 10*3/uL [facility] RBC (Bld) [#/Vol] 3.80 10*6/uL [facility] WBC (Bld) [#/Vol] 6.8 10*3/uL [facility] Erythrocyte distribution width (RBC) [Ratio] 12.7 % Normal 11.5-14.5 [facility] Comment on above: Performed By: #### 5 8410-2 ####MELISA Galvan ([id number])[facility] ()[address] [place] [address] Hematocrit (Bld) [Volume fraction] 34.6 % Low 36.0-46.0 [facility] Comment on above: Performed By: #### 5 8410-2 ####MELISA Galvan ([id number])[facility] ()[address] [place] [address] Hemoglobin (Bld) [Mass/Vol] 11.7 g/dL Low 12.0-16.0 [facility] Comment on above: Performed By: #### 5 8410-2 ####MELISA Galvan ([id number])[facility] ()[address] [place] [address] MCH (RBC) [Entitic mass] 30.8 pg Normal 26.0-34.0 [facility] Comment on above: Performed By: #### 5 8410-2 ####MELISA Galvan ([id number])[facility] ()[address] [place] [address] MCHC (RBC) [Mass/Vol] 33.8 g/dL Normal 32.0-36.0 [facility] Comment on above: Performed By: #### 5 8410-2 ####MELISA Galvan ([id number])[facility] ()[address] [place] [address] MCV (RBC) [Entitic vol] 91 fL Normal 80-100 [facility] Comment on above: Performed By: #### 5 8410-2 ####MELISA Galvan (32892)[facility] ()[address] [place] [address] Nucleated RBC/100 WBC (Bld) [Ratio] 0.0 /100 WBCs Normal 0.0-0.0 [facility] Comment on above: Performed By: #### 5 8410-2 ####MELISA Galvan ([id number])[facility] ()[address] [place] [address] Platelets (Bld) [#/Vol] 226 x10*3/uL Normal 150-450 [facility] Comment on above: Performed By: #### 5 8410-2 ####MELISA Galvan ([id number])[facility] ()[address] [place] [address] RBC (Bld) [#/Vol] 3.80 x10*6/uL Low 4.00-5.20 [facility] Comment on above: Performed By: #### 5 8410-2 ####MELISA Galvan ([id number])[facility] ()[address] [place] [address] WBC (Bld) [#/Vol] 6.8 x10*3/uL Normal 4.4-11.3 [facility] Comment on above: Performed By: #### 5 8410-2 ####MELISA Galvan (05657)[facility] ()[address] [place] [address] Clostridioides difficile tox in A+B tcdA+tcdB geneson 03-09-2023 C. difficile toxin A+B tcdA+tcdB genes HANK+probe Ql (Stl) Clostridioides difficile toxin A+B tcdA+tcdB genes Not Detected Normal Not Detected [facility] Comment on above: Order Comment: This test [...] Performed By: #### 8 0685-1 ####MELISA Galvan (52046)[facility] ()[address] [place] [address] Gastrointestinal pathogens i dentifiedon 03-09-2023 Gastrointestinal pathogens [...] Rotavirus RNA Not Detected Normal Not Detected [facility] Comment on above: Performed By: #### 5 2969-3 #### ALON Johsnon ([id number]) [facility] ([facility]) [address] [place] [address] Glucose Test strip manual (B ld) [Mass/Vol]on 03-09-2023 Glucose [Mass/Vol] 82 mg/dL Normal 74-99 [facility] Comment on above: Performed By: #### 5 2969-3 #### ALON Johnson (60047) [facility] ([facility]) [address] [place] [address] Glucose [Mass/Vol] 91 mg/dL 74 - 99 mg/dL [facility] Interpretation and review of laboratory results Normal [facility] Glucose [Mass/Vol] 91 mg/dL Normal 74-99 [facility] Comment on above: Performed By: #### 5 2969-3 #### ALON Johnson ([id number]) [facility] ([facility]) [address] [place] [address] Glucose [Mass/Vol] 83 mg/dL 74 - 99 mg/dL [facility] Interpretation and review of laboratory results Normal [facility] Glucose [Mass/Vol] 83 mg/dL Normal 74-99 [facility] Comment on above: Performed By: #### 2 341-6 ####MELISA Galvan ([id number])[facility] ()[address] [place] [address] Glucose [Mass/Vol] 82 mg/dL 74 - 99 mg/dL [facility] Interpretation and review of laboratory results Normal [facility] Glucose [Mass/Vol] 82 mg/dL Normal 74-99 [facility] Comment on above: Performed By: #### 2 341-6 ####MELISA Galvan ([id number])[facility] ()[address] [place] [address] Glucose [Mass/Vol] 120 mg/dL High 74 - 99 mg/dL [facility] Interpretation and review of laboratory results Abnormal [facility] Glucose [Mass/Vol] 120 mg/dL High 74-99 [facility] Comment on above: Performed By: #### 2 341-6 ####MELISA Galvan ([id number])[facility] ()[address] [place] [address] Glucose [Mass/Vol] 62 mg/dL Low 74 - 99 mg/dL [facility] Interpretation and review of laboratory results Abnormal [facility] Glucose [Mass/Vol] 62 mg/dL Low 74-99 [facility] Comment on above: Performed By: #### 2 341-6 ####MELISA Galvan ([id number])[facility] ()[address] [place] [address] Basic metabolic 2000 panelon 03-08-2023 Anion gap [Moles/Vol] 8 mmol/L NINF - 19 mmol/L [facility] Calcium [Mass/Vol] 8.2 mg/dL Low 8.5 - 10.4 mg/dL [facility] Chloride [Moles/Vol] 106 mmol/L 97 - 107 mmol/L [facility] CO2 [Moles/Vol] 22 mmol/L Low 24 - 31 mmol/L [facility] Creatinine [Mass/Vol] 0.70 mg/dL 0.40 - 1.60 mg/dL [facility] eGFR - PINF [facility] [facility] Comment on above: Calculations of jessica mated GFR are performed using the 2020 CKD-EPI Study Refit equation without the race variable for the IDMS-Traceable creatinine methods. https://jasn.asnjournals.org/content/early//ASN.83278281 88 Glucose [Mass/Vol] 91 mg/dL 65 - 99 mg/dL [facility] Interpretation and review of laboratory results Abnormal [facility] Potassium [Moles/Vol] 3.7 mmol/L 3.4 - 5.1 mmol/L [facility] Sodium [Moles/Vol] 136 mmol/L 133 - 145 mmol/L [facility] Urea nitrogen [Mass/Vol] 3 mg/dL Low 8 - 25 mg/dL [facility] Anion gap [Moles/Vol] 8 mmol/L Normal <=19 [facility] Comment on above: Performed By: #### 2 4323-8 #### MELISA Galvan ([id number]) [facility] () [address] [place] [address] Calcium [Mass/Vol] 8.2 mg/dL Low 8.5-10.4 [facility] Comment on above: Performed By: #### 2 432-8 #### MELISA Galvan ([id number]) [facility] () [address] [place] [address] Chloride [Moles/Vol] 106 mmol/L Normal 97-107 [facility] Comment on above: Performed By: #### 2 4323-8 #### MELISA Galvan ([id number]) [facility] () [address] [place] [address] CO2 [Moles/Vol] 22 mmol/L Low 24-31 [facility] Comment on above: Performed By: #### 2 4323-8 #### MELISA Galvan ([id number]) [facility] () [address] [place] [address] Creatinine [Mass/Vol] 0.70 mg/dL Normal 0.40-1.60 [facility] Comment on above: Performed By: #### 2 4323-8 #### MELISA Galvan ([id number]) [facility] () [address] [place] [address] GFR/1.73 sq M.predicted MDRD (S/P/Bld) [Vol rate/Area] mL/min/{1.73_m2} Normal >60 [facility] Comment on above: Result Comment: Calc ulations of estimated GFR are performed using the 2020 CKD-EPI Study Refit equation without the race variable for the IDMS-Traceable creatinine methods. https://jasn.asnjournals.org/content/early//ASN.17736435 88 Performed By: #### 2 4323-8 #### MELISA Galvan ([id number]) [facility] () [address] [place] [address] Glucose [Mass/Vol] 91 mg/dL Normal 65-99 [facility] Comment on above: Performed By: #### 2 4323-8 #### MELISA Galvan (48251) [facility] () [address] [place] [address] Potassium [Moles/Vol] 3.7 mmol/L Normal 3.4-5.1 [facility] Comment on above: Performed By: #### 2 4323-8 #### MELISA Galvan ([id number]) [facility] () [address] [place] [address] Sodium [Moles/Vol] 136 mmol/L Normal 133-145 [facility] Comment on above: Performed By: #### 2 4323-8 #### MELISA Galvan ([id number]) [facility] () [address] [place] [address] Urea nitrogen [Mass/Vol] 3 mg/dL Low 8-25 [facility] Comment on above: Performed By: #### 2 4323-8 #### MELISA Galvan ([id number]) [facility] () [address] [place] [address] CBC panel Auto (Bld)on 03-08 Erythrocyte distribution width (RBC) [Ratio] 12.8 % 11.5 - 14.5 % [facility] Hematocrit (Bld) [Volume fraction] 32.2 % Low 36.0 - 46.0 % [facility] Hemoglobin (Bld) [Mass/Vol] 10.9 g/dL Low 12.0 - 16.0 g/dL [facility] Interpretation and review of laboratory results Abnormal [facility] MCH (RBC) [Entitic mass] 31.3 pg 26.0 - 34.0 pg [facility] MCHC (RBC) [Mass/Vol] 33.9 g/dL 32.0 - 36.0 g/dL [facility] MCV (RBC) [Entitic vol] 93 fL 80 - 100 fL [facility] Nucleated RBC/100 WBC (Bld) [Ratio] 0.0 % [facility] Platelets (Bld) [#/Vol] 171 10*3/uL [facility] RBC (Bld) [#/Vol] 3.48 10*6/uL [facility] WBC (Bld) [#/Vol] 4.2 10*3/uL [facility] Erythrocyte distribution width (RBC) [Ratio] 12.8 % Normal 11.5-14.5 [facility] Comment on above: Performed By: #### 2 4323-8 #### MELISA Galvan ([id number]) [facility] () [address] [place] [address] Hematocrit (Bld) [Volume fraction] 32.2 % Low 36.0-46.0 [facility] Comment on above: Performed By: #### 2 4323-8 #### MELISA Galvan ([id number]) [facility] () [address] [place] [address] Hemoglobin (Bld) [Mass/Vol] 10.9 g/dL Low 12.0-16.0 [facility] Comment on above: Performed By: #### 2 4323-8 #### MELISA Galvan (08144) [facility] () [address] [place] [address] MCH (RBC) [Entitic mass] 31.3 pg Normal 26.0-34.0 [facility] Comment on above: Performed By: #### 2 4323-8 #### MELISA Galvan ([id number]) [facility] () [address] [place] [address] MCHC (RBC) [Mass/Vol] 33.9 g/dL Normal 32.0-36.0 [facility] Comment on above: Performed By: #### 2 4323-8 #### MELISA Galvan (44204) [facility] () [address] [place] [address] MCV (RBC) [Entitic vol] 93 fL Normal 80-100 [facility] Comment on above: Performed By: #### 2 4323-8 #### MELISA Galvan ([id number]) [facility] () [address] [place] [address] Nucleated RBC/100 WBC (Bld) [Ratio] 0.0 /100 WBCs Normal 0.0-0.0 [facility] Comment on above: Performed By: #### 2 4323-8 #### MELISA Galvan ([id number]) [facility] () [address] [place] [address] Platelets (Bld) [#/Vol] 171 x10*3/uL Normal 150-450 [facility] Comment on above: Performed By: #### 2 4323-8 #### MELISA Galvan ([id number]) [facility] () [address] [place] [address] RBC (Bld) [#/Vol] 3.48 x10*6/uL Low 4.00-5.20 [facility] Comment on above: Performed By: #### 2 4323-8 #### MELISA Galvan (22498) [facility] () [address] [place] [address] WBC (Bld) [#/Vol] 4.2 x10*3/uL Low 4.4-11.3 [facility] Comment on above: Performed By: #### 2 4323-8 #### MELISA Galvan (23598) [facility] () [address] [place] [address] Glucose Test strip manual (B ld) [Mass/Vol]on 03-08-2023 Glucose [Mass/Vol] 89 mg/dL 74 - 99 mg/dL [facility] Interpretation and review of laboratory results Normal [facility] Glucose [Mass/Vol] 89 mg/dL Normal 74-99 [facility] Comment on above: Performed By: #### 2 341-6 ####MELISA Galvan ([id number])[facility] ()[address] [place] [address] Glucose [Mass/Vol] 85 mg/dL 74 - 99 mg/dL [facility] Interpretation and review of laboratory results Normal [facility] Glucose [Mass/Vol] 85 mg/dL Normal 74-99 [facility] Comment on above: Performed By: #### 2 341-6 ####MELISA Galvan ([id number])[facility] ()[address] [place] [address] Glucose [Mass/Vol] 151 mg/dL High 74 - 99 mg/dL [facility] Interpretation and review of laboratory results Abnormal [facility] Glucose [Mass/Vol] 151 mg/dL High 74-99 [facility] Comment on above: Performed By: #### 2 341-6 ####MELISA Galvan ([id number])[facility] ()[address] [place] [address] Glucose [Mass/Vol] 89 mg/dL 74 - 99 mg/dL [facility] Interpretation and review of laboratory results Normal [facility] Glucose [Mass/Vol] 89 mg/dL Normal 74-99 [facility] Comment on above: Performed By: #### 2 4323-8 #### MELISA Galvan ([id number]) [facility] () [address] [place] [address] Glucose [Mass/Vol] 97 mg/dL 74 - 99 mg/dL [facility] Interpretation and review of laboratory results Normal [facility] Glucose [Mass/Vol] 97 mg/dL Normal 74-99 [facility] Comment on above: Performed By: #### 2 4323-8 #### MELISA Galvan ([id number]) [facility] () [address] [place] [address] Glucose [Mass/Vol] 102 mg/dL High 74 - 99 mg/dL [facility] Interpretation and review of laboratory results Abnormal [facility] Glucose [Mass/Vol] 102 mg/dL High 74-99 [facility] Comment on above: Performed By: #### 2 4323-8 #### MELISA Galvan ([id number]) [facility] () [address] [place] [address] Surgical pathology studyOrde red By: Melisa Mc on 03-08-2023 Laboratory comment John (Report) t0weuSUiNRXoz2wdOHY mbGFuZzEwMzNcZnRuYm pcdWMxIHtccnRmMVxzc 2CjU2PtSkLcAFgtmnIw XGRlZmxhbmcxMDMzXGZ 0bmJqXHVjMVxkZWZmMH alEl4nfDNfbTwxRmBmR FRya5sbehDCFNwdJMYR QFs4a4wdHEYnOgG3bGX xLLvnH1yikoBpkVTcC5 Ixi0IbHLr0bU73TANfh V5aoJHyBWpzquFcVfJ0 OUxqRVGzInZ1BZZrmZA dMHJtC9dxWJTtFLszMB PxDReglWRtIYS4gYjtb 3G4eKIuyXLjvLvlLdCd WlAlKvQQl9TpLIj0oUv qD8OgGHDaAlF4gFGsYT NqRAuwTEJuOPIdmvU1w T83BOhhosU4sSFdb6Je b18ec372mC0ebBKhCGD 3MTIyNDBccGFwZXJoMT K2OLDkvPJkC6eyWwFfs LSoZ3XqOjKjeLMuP0Vq HpKcsTFuF2NzTlRroYI vTPVzgKL5UIbnj080VZ G8QiCjTA8mY3Bpy7I2n M7ldEHqXAKajZMmFlMi JOZiuj5iuJPkOEvzo1E fDFY5odT8dMLidNHlOO VzOS31Jzups1WkKuieO QO9YCHwsoLnm7Lsa9jd MwOptdSdE1axU4TgXOH oZWFkXHBnYnJkcmZvb3 Kfg0ParBHozAf1b6giX MEbQJScuSxsm7juAFB1 XUDkE9Z8eWTpb8ixPFn zBXQciRL3mwF4JOqkSD MsjiX9rdD6CLwvOQZzn LS8olH3XCiuOGHmShX8 pzY2XSdhKWQgYSF9DyV hTZVpv1OmytcdLhPvf1 XvgWXfFMgiS17bs134W PAxxyQyC9dmdAOlrycd mJLmlwjuZQhzooK9LIX sXHBsYWluXGYxXGZzMj BcbGFuZzEwMzNcaGlja FxmMVxkYmNoXGYxXGxv A1jrFfNaXdRqMMOEhDT 7tZPqu6slrpS3hWNjIE 3rPFMibKTqigXqc6F4Z JO3uDZpuT8muTCeBICs oLVrkaNwdh20cHOuoMR 5UFKdPASliCSfcY4rSQ KcIRXViY9jpLUEsuMou rAjKXOfyFatlh8XiYQb qi5cvKHpL3ZtdApktMZ zIHRoYXQgdGhleSBoYX GaYUDqgspvm3HrVZSfd BWyR1PsEP5hLACbxh95 [facility] Work Phone: Pathology report Cancer Narrative Surgical Pathology Case: [id number] Authorizing Provider: Sherry Magaña MD Collected: 03/05/2023 1125 Ordering Location: [facility] Received: 03/05/2023 1314 Center OR Pathologist: Melisa Mc MD Specimen: LIGAMENT, Median Arcuate Ligament [facility] Work Phone: Pathology report final diagnosis Narrative v7cbbUSlLDZpzIQoLSH wNFxhbnNpXHNwbHRwZ3 QnxofxROhvGG4cRJ9at GxhdHRveWVuXGRlZmYw f2qdh895tWOmr0hpIIL NJUwhVIMGIYc9t0veZR VCkgspmZo1oPndN65nv 6T5QinwA6obTFDkZNef CUYdPTzquQQoJRv6EPO hcGVydzEyMjQwXHBhcG HdxYY8SSUsVC6skklsY HufHZevJSTngtK3UNZu rPNnJ9EuZGJoER3ajdy bZHK4XLwiEMFkLMQ5Bd ZeZKRky7Aqzve4CwTvl Ma4g3qbUMJxAVDhyFjx n1awRAP3HTNosTYcO5x elI8cGDUnKE1byfmlr4 doCXxsZQnxSSKbqNY4i xE3FUKbgDHmX4YpaP4r NDQwXHBhcmRccGxhaW5 cZjFcZnMyMlxjZjFccG JaIW2DEEgUFuFCNoETL FFOZFcPV6RVMD9PZXTM QEYZI8aPMtelwRKiMFH hHcCVhCCif7PumPHhm7 FdSG7zyRDimSSmvgZta 18lsPwwQoPzE76dnhYd r7ZifLdswTerqLIppPl tf3SiQIZtj9N3AXzcW2 xpbmljYWxseSBtZWRpY J0iVFPjpKO5AFXmdHhp yPQeyXOqzG5vbe0dFF1 ccGFyfQ== [facility] Work Phone: Pathology report gross observation Narrative q3vimNFbMSYueDBQOMK 7VWMlKI1jhIewqPu6zT giHOSqxaV9hIHmUUdxi 7yhRPS7y8tkcyAXLvzd MPLtHC5uUGigGAUdJU5 nZmUwXGRlZmYxXHBhcG VydzEyMjQwXHBhcGVya JG5ARMoCB3expbyYGbs ZKpqFWIkheQ9FYApgVZ tX2HfIVXoBJ9nvpzeHO K4OAZTAysxHx9mkIIwl CANCntcZjFcZmNoYXJz YXKxAYSpbBrcF6Lfm8I kZMn1cE8Bz5nnGygyG5 ibsuTcrIPnNe5mkGBQi irmySv3eO9HXJJaP6Ba ZS3Ed2nbLDCufWBvSSW 8IZvgc0lyQXoiJDO8CM IbDWCzMYOlYB5YDiIiM IenRTToPHCuFSl9GKv9 BTAHRFLuLnX3UIA3SJp 1DZg8RGydezuvDYw2CD DiQIwggYEbBW9yeWlnW gonaQafd1DufFEoCEPi IFxcaWQgNTEwMDIgXFx lMtZHToBhAhE6CsWxFF LeMnW9IBf6LVRBXiQmC rVuXKBpDkh2PZIwOPk5 CBn6YVjLSuO3WmX3CIb 9BtvySAQ1MyNuLHdjtJ BcXHQgMiBcXHNzIDMgX ZjxuOZzIN2ooYvuQBGo RD6VNISmAYvbUFPfaZB ZRRJ3RR2wNNPAHnnneR LrNIHjCGstcUUiR2ijL jJcZnMyMCBBOiBSZWNl aXZlZCBmcmVzaCBsYWJ lbGVkIHdpdGggdGhlIH XqbVrbfcXgodPcZZ1iG OAjDSVgr4NmqIBepYKo xN5dPHJvLV8aYWTcLBY zUI0kHBXeoWZ4VGVamO dhbWVudCIsIGFyZSAyI GlycmVndWxhciBhbmQg cQSwVJFySDTvh3O9SBA gx8U2EEWqtxJfzDHbdQ PjwHSxk4BitM1gUPZsO PKyzCL6COImSgE0CJMj DlGblLNjgmNdR8aeOSo agWXsWQZCjJLme4TnR9 vgZK5zoLWdr2UenNxaq mVkIGFuZCBlbnRpcmVs wIWyiWJzaAX4SGFghM4 bTLAuOTDeDQY1BG8rtV WlER7LMMUYHEXhhjWGI jpiITAcABaCrx5zdaCk oYJjDPT5uL7lLKXzgrX wfn5sYLYjsDlnyJGzNO 3ICE4ylhRav5r4pISWm 3NwaXRhbHMgTGFrZSBX UIT6RT5iDWlaFHhqK3T dxWXuZVNuhhGDInT6VQ NvOLO1P8inSIAFzqAek FJdyXTaIM8UT3fwrQ74 Y4figFrqS1adjqC4YWT 7DIhbLBWvMXtfo3GsNG xlcGljWHNhMzAgDQpQa D1hAQsjPJP6ZQpyBHWi LTYwMjUgIEZheDogKDQ 8RJbmOkFvJQG3BACTMw egwWthHyKmoHOzGoV8I NAowDMlTHS2AB3jxHpr YIZvI5TgL7KwsnC2RIY uhfWNLtsmYUPiZY4DMH OgIVpvSL6BqA== [facility] Work Phone: Pathology report relevant history Narrative s2yykDWfJZCna3jmBHK mbGFuZzEwMzNcZnRuYm s5NDZxewU3Wmw3HORmY LqqeI3yDOCsVNwcT3fn tyHbgUAgI5Eqw0MfJEd 7iP0vcZssrW7oPvXsQd LrOJPBaiIrx8SgQYmgL 87ih5fuVhlnRPCpDYRl mHFuYJMvH7QpjQJtyPx uBP0wceHws1baOHHtgO SgQFDIDp6XF6PbLDsBH jprJX8uuZObDX6= [facility] Work Phone: [facility] Work Phone: Basic metabolic 2000 panelon 03-07-2023 Anion gap [Moles/Vol] 7 mmol/L NINF - 19 mmol/L [facility] Calcium [Mass/Vol] 8.0 mg/dL Low 8.5 - 10.4 mg/dL [facility] Chloride [Moles/Vol] 111 mmol/L High 97 - 107 mmol/L [facility] CO2 [Moles/Vol] 21 mmol/L Low 24 - 31 mmol/L [facility] Creatinine [Mass/Vol] 0.70 mg/dL 0.40 - 1.60 mg/dL [facility] eGFR - PINF [facility] Comment on above: Calculations of jessica mated GFR are performed using the 2020 CKD-EPI Study Refit equation without the race variable for the IDMS-Traceable creatinine methods. https://jasn.asnjournals.org/content///ASN.75116296 88 Glucose [Mass/Vol] 100 mg/dL High 65 - 99 mg/dL [facility] Interpretation and review of laboratory results Abnormal [facility] Potassium [Moles/Vol] 3.9 mmol/L 3.4 - 5.1 mmol/L [facility] Sodium [Moles/Vol] 139 mmol/L 133 - 145 mmol/L [facility] Urea nitrogen [Mass/Vol] 4 mg/dL Low 8 - 25 mg/dL [facility] Anion gap [Moles/Vol] 7 mmol/L Normal <=19 [facility] Comment on above: Performed By: #### 5 7021-8 #### MELISA Galvan ([id number]) [facility] () [address] [place] [address] Calcium [Mass/Vol] 8.0 mg/dL Low 8.5-10.4 [facility] Comment on above: Performed By: #### 5 7021-8 #### MELISA Galvan (45554) [facility] () [address] [place] [address] Chloride [Moles/Vol] 111 mmol/L High 97-107 [facility] Comment on above: Performed By: #### 5 7021-8 #### MELISA Galvan (18561) [facility] () [address] [place] [address] CO2 [Moles/Vol] 21 mmol/L Low 24-31 [facility] Comment on above: Performed By: #### 5 7021-8 #### MELISA Galvan ([id number]) [facility] () [address] [place] [address] Creatinine [Mass/Vol] 0.70 mg/dL Normal 0.40-1.60 [facility] Comment on above: Performed By: #### 5 7021-8 #### MELISA Galvan ([id number]) [facility] () [address] [place] [address] GFR/1.73 sq M.predicted MDRD (S/P/Bld) [Vol rate/Area] mL/min/{1.73_m2} Normal >60 [facility] Comment on above: Result Comment: Calc ulations of estimated GFR are performed using the 2020 CKD-EPI Study Refit equation without the race variable for the IDMS-Traceable creatinine methods. https://jasn.asnjournals.org/content/early//ASN.93848103 88 Performed By: #### 5 7021-8 #### MELISA Galvan (50963) [facility] () [address] [place] [address] Glucose [Mass/Vol] 100 mg/dL High 65-99 [facility] Comment on above: Performed By: #### 5 7021-8 #### MELISA Galvan (59388) [facility] () [address] [place] [address] Potassium [Moles/Vol] 3.9 mmol/L Normal 3.4-5.1 [facility] Comment on above: Performed By: #### 5 7021-8 #### MELISA Galvan (76090) [facility] () [address] [place] [address] Sodium [Moles/Vol] 139 mmol/L Normal 133-145 [facility] Comment on above: Performed By: #### 5 7021-8 #### MELISA Galvan (57059) [facility] () [address] [place] [address] Urea nitrogen [Mass/Vol] 4 mg/dL Low 8-25 [facility] Comment on above: Performed By: #### 5 7021-8 #### MELISA Galvan (68924) [facility] () [address] [place] [address] CBC panel Auto (Bld)on 03-07 Erythrocyte distribution width (RBC) [Ratio] 13.2 % 11.5 - 14.5 % [facility] Hematocrit (Bld) [Volume fraction] 33.3 % Low 36.0 - 46.0 % [facility] Hemoglobin (Bld) [Mass/Vol] 11.0 g/dL Low 12.0 - 16.0 g/dL [facility] Interpretation and review of laboratory results Abnormal [facility] MCH (RBC) [Entitic mass] 31.3 pg 26.0 - 34.0 pg [facility] MCHC (RBC) [Mass/Vol] 33.0 g/dL 32.0 - 36.0 g/dL [facility] MCV (RBC) [Entitic vol] 95 fL 80 - 100 fL [facility] Nucleated RBC/100 WBC (Bld) [Ratio] 0.0 % [facility] Platelets (Bld) [#/Vol] 155 10*3/uL [facility] RBC (Bld) [#/Vol] 3.51 10*6/uL Low [facility] WBC (Bld) [#/Vol] 5.1 10*3/uL [facility] Erythrocyte distribution width (RBC) [Ratio] 13.2 % Normal 11.5-14.5 [facility] Comment on above: Performed By: #### 5 7021-8 #### MELISA Galvan (20251) [facility] () [address] [place] [address] Hematocrit (Bld) [Volume fraction] 33.3 % Low 36.0-46.0 [facility] Comment on above: Performed By: #### 5 7021-8 #### MELISA Galvan ([id number]) [facility] () [address] [place] [address] Hemoglobin (Bld) [Mass/Vol] 11.0 g/dL Low 12.0-16.0 [facility] Comment on above: Performed By: #### 5 7021-8 #### MELISA Galvan (59157) [facility] () [address] [place] [address] MCH (RBC) [Entitic mass] 31.3 pg Normal 26.0-34.0 [facility] Comment on above: Performed By: #### 5 7021-8 #### MELISA Galvan ([id number]) [facility] () [address] [place] [address] MCHC (RBC) [Mass/Vol] 33.0 g/dL Normal 32.0-36.0 [facility] Comment on above: Performed By: #### 5 7021-8 #### MELISA Galvan ([id number]) [facility] () [address] [place] [address] MCV (RBC) [Entitic vol] 95 fL Normal 80-100 [facility] Comment on above: Performed By: #### 5 7021-8 #### MELISA Galvan (15562) [facility] () [address] [place] [address] Nucleated RBC/100 WBC (Bld) [Ratio] 0.0 /100 WBCs Normal 0.0-0.0 [facility] Comment on above: Performed By: #### 5 7021-8 #### MELISA Galvan ([id number]) [facility] () [address] [place] [address] Platelets (Bld) [#/Vol] 155 x10*3/uL Normal 150-450 [facility] Comment on above: Performed By: #### 5 7021-8 #### MELISA Galvan ([id number]) [facility] () [address] [place] [address] RBC (Bld) [#/Vol] 3.51 x10*6/uL Low 4.00-5.20 [facility] Comment on above: Performed By: #### 5 7021-8 #### MELISA Galvan (43361) [facility] () [address] [place] [address] WBC (Bld) [#/Vol] 5.1 x10*3/uL Normal 4.4-11.3 [facility] Comment on above: Performed By: #### 5 7021-8 #### MELISA Galvan (18596) [facility] () [address] [place] [address] Glucose Test strip manual (B ld) [Mass/Vol]on 03-07-2023 Glucose [Mass/Vol] 125 mg/dL High 74 - 99 mg/dL [facility] Interpretation and review of laboratory results Abnormal [facility] Glucose [Mass/Vol] 125 mg/dL High 74-99 [facility] Comment on above: Performed By: #### 2 4323-8 #### MELISA Galvan (49343) [facility] () [address] [place] [address] Glucose [Mass/Vol] 117 mg/dL High 74 - 99 mg/dL [facility] Interpretation and review of laboratory results Abnormal [facility] Glucose [Mass/Vol] 117 mg/dL High 74-99 [facility] Comment on above: Performed By: #### 2 4323-8 #### MELISA Galvan ([id number]) [facility] () [address] [place] [address] Glucose [Mass/Vol] 98 mg/dL 74 - 99 mg/dL [facility] Interpretation and review of laboratory results Normal [facility] Glucose [Mass/Vol] 98 mg/dL Normal 74-99 [facility] Comment on above: Performed By: #### 2 4323-8 #### MELISA Galvan ([id number]) [facility] () [address] [place] [address] Glucose [Mass/Vol] 98 mg/dL 74 - 99 mg/dL [facility] Interpretation and review of laboratory results Normal [facility] Glucose [Mass/Vol] 98 mg/dL Normal 74-99 [facility] Comment on above: Performed By: #### 2 4323-8 #### MELISA Galvan ([id number]) [facility] () [address] [place] [address] Glucose [Mass/Vol] 108 mg/dL High 74 - 99 mg/dL [facility] Interpretation and review of laboratory results Abnormal [facility] Glucose [Mass/Vol] 108 mg/dL High 74-99 [facility] Comment on above: Performed By: #### 5 7021-8 #### MELISA Galvan ([id number]) [facility] () [address] [place] [address] Glucose [Mass/Vol] 119 mg/dL High 74 - 99 mg/dL [facility] Interpretation and review of laboratory results Abnormal [facility] Basic metabolic 2000 panelon 03-06-2023 Anion gap [Moles/Vol] 7 mmol/L NINF - 19 mmol/L [facility] Calcium [Mass/Vol] 8.1 mg/dL Low 8.5 - 10.4 mg/dL [facility] Chloride [Moles/Vol] 109 mmol/L High 97 - 107 mmol/L [facility] CO2 [Moles/Vol] 21 mmol/L Low 24 - 31 mmol/L [facility] Creatinine [Mass/Vol] 0.70 mg/dL 0.40 - 1.60 mg/dL [facility] eGFR - PINF [facility] Comment on above: Calculations of jessica mated GFR are performed using the 2020 CKD-EPI Study Refit equation without the race variable for the IDMS-Traceable creatinine methods. https://jasn.asnjournals.org/content//ASN.37417264 88 Glucose [Mass/Vol] 149 mg/dL High 65 - 99 mg/dL [facility] Interpretation and review of laboratory results Abnormal [facility] Potassium [Moles/Vol] 3.7 mmol/L 3.4 - 5.1 mmol/L [facility] Sodium [Moles/Vol] 137 mmol/L 133 - 145 mmol/L [facility] Urea nitrogen [Mass/Vol] 5 mg/dL Low 8 - 25 mg/dL [facility] Anion gap [Moles/Vol] 7 mmol/L Normal <=19 [facility] Comment on above: Performed By: #### 5 7021-8 #### MELISA Galvan ([id number]) [facility] () [address] [place] [address] Calcium [Mass/Vol] 8.1 mg/dL Low 8.5-10.4 [facility] Comment on above: Performed By: #### 5 7021-8 #### MELISA Galvan ([id number]) [facility] () [address] [place] [address] Chloride [Moles/Vol] 109 mmol/L High 97-107 [facility] Comment on above: Performed By: #### 5 7021-8 #### MELISA Galvan ([id number]) [facility] () [address] [place] [address] CO2 [Moles/Vol] 21 mmol/L Low 24-31 [facility] Comment on above: Performed By: #### 5 7021-8 #### MELISA Galvan ([id number]) [facility] () [address] [place] [address] Creatinine [Mass/Vol] 0.70 mg/dL Normal 0.40-1.60 [facility] Comment on above: Performed By: #### 5 7021-8 #### MELISA Galvan ([id number]) [facility] () [address] [place] [address] GFR/1.73 sq M.predicted MDRD (S/P/Bld) [Vol rate/Area] mL/min/{1.73_m2} Normal >60 [facility] Comment on above: Result Comment: Calc ulations of estimated GFR are performed using the 2020 CKD-EPI Study Refit equation without the race variable for the IDMS-Traceable creatinine methods. https://jasn.asnjournals.org/content/early//ASN.43132389 88 Performed By: #### 5 7021-8 #### MELISA Galvan ([id number]) [facility] () [address] [place] [address] Glucose [Mass/Vol] 149 mg/dL High 65-99 [facility] Comment on above: Performed By: #### 5 7021-8 #### MELISA Galvan ([id number]) [facility] () [address] [place] [address] Potassium [Moles/Vol] 3.7 mmol/L Normal 3.4-5.1 [facility] Comment on above: Performed By: #### 5 7021-8 #### MELISA Galvan ([id number]) [facility] () [address] [place] [address] Sodium [Moles/Vol] 137 mmol/L Normal 133-145 [facility] Comment on above: Performed By: #### 5 7021-8 #### MELISA Galvan ([id number]) [facility] () [address] [place] [address] Urea nitrogen [Mass/Vol] 5 mg/dL Low 8-25 [facility] Comment on above: Performed By: #### 5 7021-8 #### MELISA Galvan ([id number]) [facility] () [address] [place] [address] CBC panel Auto (Bld)on 03-06 Erythrocyte distribution width (RBC) [Ratio] 12.9 % 11.5 - 14.5 % [facility] Hematocrit (Bld) [Volume fraction] 35.1 % Low 36.0 - 46.0 % [facility] Hemoglobin (Bld) [Mass/Vol] 11.8 g/dL Low 12.0 - 16.0 g/dL [facility] Interpretation and review of laboratory results Abnormal [facility] MCH (RBC) [Entitic mass] 30.8 pg 26.0 - 34.0 pg [facility] MCHC (RBC) [Mass/Vol] 33.6 g/dL 32.0 - 36.0 g/dL [facility] MCV (RBC) [Entitic vol] 92 fL 80 - 100 fL [facility] Nucleated RBC/100 WBC (Bld) [Ratio] 0.0 % [facility] Platelets (Bld) [#/Vol] 179 10*3/uL [facility] RBC (Bld) [#/Vol] 3.83 10*6/uL Low [facility] WBC (Bld) [#/Vol] 5.5 10*3/uL [facility] Erythrocyte distribution width (RBC) [Ratio] 12.9 % Normal 11.5-14.5 [facility] Comment on above: Performed By: #### 2 4356-8 #### MELISA Galvan (41605) [facility] () [address] [place] [address] Hematocrit (Bld) [Volume fraction] 35.1 % Low 36.0-46.0 [facility] Comment on above: Performed By: #### 2 4356-8 #### MELISA Galvan (17965) [facility] () [address] [place] [address] Hemoglobin (Bld) [Mass/Vol] 11.8 g/dL Low 12.0-16.0 [facility] Comment on above: Performed By: #### 2 4356-8 #### MELISA Galvan (84902) [facility] () [address] [place] [address] MCH (RBC) [Entitic mass] 30.8 pg Normal 26.0-34.0 [facility] Comment on above: Performed By: #### 2 4356-8 #### MELISA Galvan (36998) [facility] () [address] [place] [address] MCHC (RBC) [Mass/Vol] 33.6 g/dL Normal 32.0-36.0 [facility] Comment on above: Performed By: #### 2 4356-8 #### MELISA Galvan ([id number]) [facility] () [address] [place] [address] MCV (RBC) [Entitic vol] 92 fL Normal 80-100 [facility] Comment on above: Performed By: #### 2 4356-8 #### MELISA Galvan (79493) [facility] () [address] [place] [address] Nucleated RBC/100 WBC (Bld) [Ratio] 0.0 /100 WBCs Normal 0.0-0.0 [facility] Comment on above: Performed By: #### 2 4356-8 #### MELISA Galvan (40225) [facility] () [address] [place] [address] Platelets (Bld) [#/Vol] 179 x10*3/uL Normal 150-450 [facility] Comment on above: Performed By: #### 2 4356-8 #### MELISA Galvan (78531) [facility] () [address] [place] [address] RBC (Bld) [#/Vol] 3.83 x10*6/uL Low 4.00-5.20 [facility] Comment on above: Performed By: #### 2 4356-8 #### MELISA Galvan (65125) [facility] () [address] [place] [address] WBC (Bld) [#/Vol] 5.5 x10*3/uL Normal 4.4-11.3 [facility] Comment on above: Performed By: #### 2 4356-8 #### MELISA Galvan (68584) [facility] () [address] [place] [address] Glucose Test strip manual (B ld) [Mass/Vol]on 03-06-2023 Glucose [Mass/Vol] 119 mg/dL High 74-99 [facility] Comment on above: Performed By: #### 5 7021-8 #### MELISA Galvan ([id number]) [facility] () [address] [place] [address] Glucose [Mass/Vol] 103 mg/dL High 74 - 99 mg/dL [facility] Interpretation and review of laboratory results Abnormal [facility] Glucose [Mass/Vol] 103 mg/dL High 74-99 [facility] Comment on above: Performed By: #### 5 7021-8 #### MELISA Galvan (48025) [facility] () [address] [place] [address] Glucose [Mass/Vol] 119 mg/dL High 74 - 99 mg/dL [facility] Interpretation and review of laboratory results Abnormal [facility] Glucose [Mass/Vol] 119 mg/dL High 74-99 [facility] Comment on above: Performed By: #### 5 7021-8 #### MELISA Galvan ([id number]) [facility] () [address] [place] [address] Glucose [Mass/Vol] 108 mg/dL High 74 - 99 mg/dL [facility] Interpretation and review of laboratory results Abnormal [facility] Glucose [Mass/Vol] 108 mg/dL High 74-99 [facility] Comment on above: Performed By: #### 5 7021-8 #### MELISA Galvan (01238) [facility] () [address] [place] [address] Glucose [Mass/Vol] 113 mg/dL High 74 - 99 mg/dL [facility] Interpretation and review of laboratory results Abnormal [facility] Glucose [Mass/Vol] 113 mg/dL High 74-99 [facility] Comment on above: Performed By: #### 5 7021-8 #### MELISA Galvan (30935) [facility] () [address] [place] [address] Glucose [Mass/Vol] 152 mg/dL High 74 - 99 mg/dL [facility] Interpretation and review of laboratory results Abnormal [facility] Glucose [Mass/Vol] 152 mg/dL High 74-99 [facility] Comment on above: Performed By: #### 2 4356-8 #### MELISA Galvan (43154) [facility] () [address] [place] [address] Magnesiumon 03-06-2023 Magnesium [Mass/Vol] 1.70 mg/dL 1.60 - 3.10 mg/dL [facility] Magnesium [Mass/Vol] 1.70 mg/dL Normal 1.60-3.10 [facility] Comment on above: Performed By: #### 2 4356-8 #### MELISA Galvan (31420) [facility] () [address] [place] [address] No Panel Informationon 03-06 Interpretation and review of laboratory results Normal [facility] Phosphateon 03-06-2023 Phosphate [Mass/Vol] 3.0 mg/dL Normal 2.5-4.5 [facility] Comment on above: Performed By: #### 2 4356-8 #### MELISA Galvan (03515) [facility] () [address] [place] [address] Phosphoruson 03-06-2023 Phosphate [Mass/Vol] 3.0 mg/dL 2.5 - 4.5 mg/dL [facility] XR CHEST 1 VIEWon 03-06-2023 XR CHEST 1 VIEW Interpreted By: Sara Zarate, STUDY: XR CHEST 1 VIEW; 03/06/2023 7:32 am INDICATION: Signs/Symptoms:post op COMPARISON: None ACCESSION NUMBER(S): [id number] ORDERING CLINICIAN: JASON FOSTER TECHNIQUE: Frontal and [...] Sara Zarate 03/06/2023 1:48 PM Dictation workstation: [id number] Normal [facility] XR Chest Single viewon 03-06 Appliance positioning as noted above. No consolidation. Signed by: Sara Zarate 03/06/2023 1:48 PM Dictation workstation: [id number] MMODAL Interpreted By: Sara Zarate, STUDY: XR CHEST 1 VIEW; 03/06/2023 7:32 am INDICATION: Signs/Symptoms:post op COMPARISON: None ACCESSION NUMBER(S): [id number] ORDERING CLINICIAN: JASON FOSTER TECHNIQUE: Frontal and lateral chest radiographs. FINDINGS: Enteric tube is seen with the tip overlying the expected location of the stomach. Right upper extremity PICC is seen with the tip overlying the distal SVC. The cardiomediastinal silhouette is unremarkable. The lungs are clear. No pleural effusion is identified. The osseous structures are intact. MMODAL Sara Zarate MD - 03/06/2023 Interpreted By: Sara Zarate, STUDY: XR CHEST 1 VIEW; 03/06/2023 7:32 am INDICATION: Signs/Symptoms:post op COMPARISON: None ACCESSION NUMBER(S): [id number] ORDERING CLINICIAN: JASON FOSTER TECHNIQUE: Frontal and [...] Sara Zarate 03/06/2023 1:48 PM Dictation workstation: [id number] [facility] Work Phone: Radiology Study observation (narrative) [facility] Work Phone: XR Chest Single viewOrdered By: Sara Zarate on 03-06-2023 [facility] Work Phone: Basic metabolic 2000 panelon 03-05-2023 Anion gap [Moles/Vol] 13 mmol/L NINF - 19 mmol/L [facility] Calcium [Mass/Vol] 8.0 mg/dL Low 8.5 - 10.4 mg/dL [facility] Chloride [Moles/Vol] 107 mmol/L 97 - 107 mmol/L [facility] CO2 [Moles/Vol] 18 mmol/L Low 24 - 31 mmol/L [facility] Creatinine [Mass/Vol] 0.70 mg/dL 0.40 - 1.60 mg/dL [facility] eGFR - PINF [facility] Comment on above: Calculations of jessica mated GFR are performed using the 2020 CKD-EPI Study Refit equation without the race variable for the IDMS-Traceable creatinine methods. https://jasn.asnjournals.org/content//ASN.69123706 88 Glucose [Mass/Vol] 107 mg/dL High 65 - 99 mg/dL [facility] Interpretation and review of laboratory results Abnormal [facility] Potassium [Moles/Vol] 3.6 mmol/L 3.4 - 5.1 mmol/L [facility] Sodium [Moles/Vol] 138 mmol/L 133 - 145 mmol/L [facility] Urea nitrogen [Mass/Vol] 10 mg/dL 8 - 25 mg/dL [facility] Anion gap [Moles/Vol] 13 mmol/L Normal <=19 [facility] Comment on above: Performed By: #### 2 4356-8 #### MELISA Galvan ([id number]) [facility] () [address] [place] [address] Calcium [Mass/Vol] 8.0 mg/dL Low 8.5-10.4 [facility] Comment on above: Performed By: #### 2 4356-8 #### MELISA Galvan (60998) [facility] () [address] [place] [address] Chloride [Moles/Vol] 107 mmol/L Normal 97-107 [facility] Comment on above: Performed By: #### 2 4356-8 #### MELISA Galvan (97146) [facility] () [address] [place] [address] CO2 [Moles/Vol] 18 mmol/L Low 24-31 [facility] Comment on above: Performed By: #### 2 4356-8 #### MELISA Galvan (91507) [facility] () [address] [place] [address] Creatinine [Mass/Vol] 0.70 mg/dL Normal 0.40-1.60 [facility] Comment on above: Performed By: #### 2 4356-8 #### MELISA Galvan (32795) [facility] () [address] [place] [address] GFR/1.73 sq M.predicted MDRD (S/P/Bld) [Vol rate/Area] mL/min/{1.73_m2} Normal >60 [facility] Comment on above: Result Comment: Calc ulations of estimated GFR are performed using the 2020 CKD-EPI Study Refit equation without the race variable for the IDMS-Traceable creatinine methods. https://jasn.asnjournals.org/content//ASN.98659843 88 Performed By: #### 2 4356-8 #### MELISA Galvan ([id number]) [facility] () [address] [place] [address] Glucose [Mass/Vol] 107 mg/dL High 65-99 [facility] Comment on above: Performed By: #### 2 4356-8 #### MELISA Galvan (21308) [facility] () [address] [place] [address] Potassium [Moles/Vol] 3.6 mmol/L Normal 3.4-5.1 [facility] Comment on above: Performed By: #### 2 4356-8 #### MELISA Galvan (76415) [facility] () [address] [place] [address] Sodium [Moles/Vol] 138 mmol/L Normal 133-145 [facility] Comment on above: Performed By: #### 2 4356-8 #### MELISA Galvan (72459) [facility] () [address] [place] [address] Urea nitrogen [Mass/Vol] 10 mg/dL Normal 8-25 [facility] Comment on above: Performed By: #### 2 4356-8 #### MELISA Galvan (01000) [facility] () [address] [place] [address] CBC panel Auto (Bld)on 03-05 Erythrocyte distribution width (RBC) [Ratio] 12.6 % 11.5 - 14.5 % [facility] Hematocrit (Bld) [Volume fraction] 34.8 % Low 36.0 - 46.0 % [facility] Hemoglobin (Bld) [Mass/Vol] 11.9 g/dL Low 12.0 - 16.0 g/dL [facility] Interpretation and review of laboratory results Abnormal [facility] MCH (RBC) [Entitic mass] 31.2 pg 26.0 - 34.0 pg [facility] MCHC (RBC) [Mass/Vol] 34.2 g/dL 32.0 - 36.0 g/dL [facility] MCV (RBC) [Entitic vol] 91 fL 80 - 100 fL [facility] Nucleated RBC/100 WBC (Bld) [Ratio] 0.0 % [facility] Platelets (Bld) [#/Vol] 182 10*3/uL [facility] RBC (Bld) [#/Vol] 3.82 10*6/uL Low [facility] WBC (Bld) [#/Vol] 8.4 10*3/uL [facility] Erythrocyte distribution width (RBC) [Ratio] 12.6 % Normal 11.5-14.5 [facility] Comment on above: Performed By: #### 5 8410-2 #### MELISA Galvan (10905) [facility] () [address] [place] [address] Hematocrit (Bld) [Volume fraction] 34.8 % Low 36.0-46.0 [facility] Comment on above: Performed By: #### 5 8410-2 #### MELISA Galvan (61709) [facility] () [address] [place] [address] Hemoglobin (Bld) [Mass/Vol] 11.9 g/dL Low 12.0-16.0 [facility] Comment on above: Performed By: #### 5 8410-2 #### MELISA Galvan (97783) [facility] () [address] [place] [address] MCH (RBC) [Entitic mass] 31.2 pg Normal 26.0-34.0 [facility] Comment on above: Performed By: #### 5 8410-2 #### MELISA Galvan (28565) [facility] () [address] [place] [address] MCHC (RBC) [Mass/Vol] 34.2 g/dL Normal 32.0-36.0 [facility] Comment on above: Performed By: #### 5 8410-2 #### MELISA Galvan (38185) [facility] () [address] [place] [address] MCV (RBC) [Entitic vol] 91 fL Normal 80-100 [facility] Comment on above: Performed By: #### 5 8410-2 #### MELISA Galvan (04995) [facility] () [address] [place] [address] Nucleated RBC/100 WBC (Bld) [Ratio] 0.0 /100 WBCs Normal 0.0-0.0 [facility] Comment on above: Performed By: #### 5 8410-2 #### MELISA Galvan (69248) [facility] () [address] [place] [address] Platelets (Bld) [#/Vol] 182 x10*3/uL Normal 150-450 [facility] Comment on above: Performed By: #### 5 8410-2 #### MELISA Galvan (78894) [facility] () [address] [place] [address] RBC (Bld) [#/Vol] 3.82 x10*6/uL Low 4.00-5.20 [facility] Comment on above: Performed By: #### 5 8410-2 #### MELISA Galvan (04944) [facility] () [address] [place] [address] WBC (Bld) [#/Vol] 8.4 x10*3/uL Normal 4.4-11.3 [facility] Comment on above: Performed By: #### 5 8410-2 #### MELISA Galvan (07461) [facility] () [address] [place] [address] Glucose Test strip manual (B ld) [Mass/Vol]on 03-05-2023 Glucose [Mass/Vol] 176 mg/dL High 74 - 99 mg/dL [facility] Interpretation and review of laboratory results Abnormal [facility] Glucose [Mass/Vol] 176 mg/dL High 74-99 [facility] Comment on above: Performed By: #### 2 4356-8 #### MELISA Galvan (70561) [facility] () [address] [place] [address] Glucose [Mass/Vol] 177 mg/dL High 74 - 99 mg/dL [facility] Interpretation and review of laboratory results Abnormal [facility] Glucose [Mass/Vol] 177 mg/dL High 74-99 [facility] Comment on above: Performed By: #### 2 4356-8 #### MELISA Galvan (79692) [facility] () [address] [place] [address] Glucose [Mass/Vol] 111 mg/dL High 74 - 99 mg/dL [facility] Interpretation and review of laboratory results Abnormal [facility] Glucose [Mass/Vol] 111 mg/dL High 74-99 [facility] Comment on above: Performed By: #### 2 4356-8 #### MELISA Galvan (94497) [facility] () [address] [place] [address] Magnesiumon 03-05-2023 Magnesium [Mass/Vol] 1.70 mg/dL 1.60 - 3.10 mg/dL [facility] Magnesium [Mass/Vol] 1.70 mg/dL Normal 1.60-3.10 [facility] Comment on above: Performed By: #### 2 4356-8 #### MELISA Galvan (89338) [facility] () [address] [place] [address] No Panel Informationon 03-05 Interpretation and review of laboratory results Normal [facility] Phosphateon 03-05-2023 Phosphate [Mass/Vol] 4.3 mg/dL Normal 2.5-4.5 [facility] Comment on above: Performed By: #### 2 4356-8 #### MELISA Galvan (93506) [facility] () [address] [place] [address] Phosphoruson 03-05-2023 Phosphate [Mass/Vol] 4.3 mg/dL 2.5 - 4.5 mg/dL [facility] Surgical pathology studyon 0 03-05-2023 Surgical pathology study Pathology report.total SEE COMMENT Surgical Pathology Case: [id number] Authorizing Provider: Sherry Magaña MD Collected: 03/05/2023 1125 Ordering Location: [facility] Received: 03/05/2023 1314 Center OR Pathologist: Melisa Mc MD Specimen: LIGAMENT, Median Arcuate Ligament Path [...] sectioned and entirely submitted in [address] 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] VERAB/VERIFY ABORHon 024 ABO group Nom (Bld) O [facility] Comment on above: Performed By: #### V ERAB #### MELISA Galvan ([id number]) [facility] ([facility]) [id number] [place] [address] [place] D Ag Ql (Bld) Positive [place] Comment on above: Performed By: #### V ERAB #### MELISA Galvan ([id number]) [facility] ([facility]) [address] [place] [address] XR CHEST 1 VIEWon 03-05-2023 XR CHEST 1 VIEW Interpreted By: Baldomero Hendrickson, STUDY: XR CHEST 1 VIEW; 03/05/2023 3:11 pm INDICATION: CLINICAL INFORMATION: Signs/Symptoms:NG tube placement confirmation. COMPARISON: 03/05/2019 at 745 hours ACCESSION NUMBER(S): [id number] ORDERING CLINICIAN: DESMOND TIRADO TECHNIQUE: Portable chest [...] Baldomero Hendrickson 03/05/2023 3:31 PM Dictation workstation: [id number] [facility] XR CHEST 1 VIEW Interpreted By: Nya Ahmadi, STUDY: XR CHEST 1 VIEW 03/05/2023 7:51 am INDICATION: Signs/Symptoms:conf irm line placement COMPARISON: None available. ACCESSION NUMBER(S): [id number] ORDERING CLINICIAN: SERENA GEORGE TECHNIQUE: AP erect view of the chest FINDINGS: Right arm PICC line terminates in the SVC. There is no pneumothorax. The heart, mediastinum, and lungs are normally visualized. IMPRESSION: Right arm PICC line terminating in SVC without pneumothorax. No acute cardiopulmonary disease. Signed by: Nya Ahmadi 03/05/2023 7:54 AM Dictation workstation: [id number] [facility] XR Chest Single viewon 03-05 1. Status post NG tube insertion with the tube extending into the left upper quadrant. 2. Stable appearance of the PICC line. 3. No infiltrates are identified. MACRO: none Signed by: Baldomero Hendrickson 03/05/2023 3:31 PM Dictation workstation: [id number] [facility]AL Interpreted By: Baldomero Hendrickson, STUDY: XR CHEST 1 VIEW; 03/05/2023 3:11 pm INDICATION: CLINICAL INFORMATION: Signs/Symptoms:NG tube placement confirmation. COMPARISON: 03/05/2019 at 745 hours ACCESSION NUMBER(S): [id number] ORDERING CLINICIAN: DESMOND TIRADO TECHNIQUE: Portable chest one view. FINDINGS: The cardiac size is indeterminate in view of the AP projection. Nasogastric tube extends into the left upper quadrant. Right-sided PICC line is present with the catheter tip overlying the SVC right atrial junction. No infiltrates or effusions are identified. [facility] MM[facility] Baldomero Hendrickson MD - 03/05/2023 Interpreted By: Baldomero Hendrickson, STUDY: XR CHEST 1 VIEW; 03/05/2023 3:11 pm INDICATION: CLINICAL INFORMATION: Signs/Symptoms:NG tube placement confirmation. COMPARISON: 03/05/2019 at 745 hours ACCESSION NUMBER(S): [id number] ORDERING CLINICIAN: DESMOND TIRADO TECHNIQUE: Portable chest [...] Baldomero Hendrickson 03/05/2023 3:31 PM Dictation workstation: [id number] [facility] Work Phone: Radiology Study observation (narrative) [facility] Work Phone: Right arm PICC line terminating in SVC without pneumothorax. No acute cardiopulmonary disease. Signed by: Nya Ahmadi 03/05/2023 7:54 AM Dictation workstation: [id number] MMODAL Interpreted By: Nya Ahmadi, STUDY: XR CHEST 1 VIEW 03/05/2023 7:51 am INDICATION: Signs/Symptoms:conf irm line placement COMPARISON: None available. ACCESSION NUMBER(S): [id number] ORDERING CLINICIAN: SERENA GEORGE TECHNIQUE: AP erect view of the chest FINDINGS: Right arm PICC line terminates in the SVC. There is no pneumothorax. The heart, mediastinum, and lungs are normally visualized. [facility] MM[facility]AL Nya Ahmadi MD - 03/05/2023 Interpreted By: Nya Ahmadi, STUDY: XR CHEST 1 VIEW 03/05/2023 7:51 am INDICATION: Signs/Symptoms:conf irm line placement COMPARISON: None available. ACCESSION NUMBER(S): [id number] ORDERING CLINICIAN: SERENA GEORGE TECHNIQUE: AP erect view of the chest FINDINGS: Right arm PICC line terminates in the SVC. There is no pneumothorax. The heart, mediastinum, and lungs are normally visualized. IMPRESSION: Right arm PICC line terminating in SVC without pneumothorax. No acute cardiopulmonary disease. Signed by: Nya Ahmadi 03/05/2023 7:54 AM Dictation workstation: [id number] [facility] Work Phone: Radiology Study observation (narrative) [facility] Work Phone: XR Chest Single viewOrdered By: Baldomero Hendrickson on 03-05-2023 [facility] Work Phone: XR Chest Single viewOrdered By: Nya Ahmadi on 03-05-2023 [facility] Work Phone: Basic metabolic 2000 panelon 03-02-2023 Anion gap [Moles/Vol] 14 mmol/L Normal <=19 [facility] Comment on above: Performed By: #### 2 4321-2 #### MELISA Galvan ([id number]) [facility] () [address] [place] [address] Calcium [Mass/Vol] 9.0 mg/dL Normal 8.5-10.4 [facility] Comment on above: Performed By: #### 2 4320-2 #### MELISA Galvan (01842) [facility] () [address] [place] [address] Chloride [Moles/Vol] 107 mmol/L Normal 97-107 [facility] Comment on above: Performed By: #### 2 4320-2 #### MELISA Galvan ([id number]) [facility] () [address] [place] [address] CO2 [Moles/Vol] 21 mmol/L Low 24-31 [facility] Comment on above: Performed By: #### 2 4321-2 #### MELISA Galvan ([id number]) [facility] () [address] [place] [address] Creatinine [Mass/Vol] 0.80 mg/dL Normal 0.40-1.60 [facility] Comment on above: Performed By: #### 2 4320-2 #### MELISA Galvan ([id number]) [facility] () [address] [place] [address] GFR/1.73 sq M.predicted MDRD (S/P/Bld) [Vol rate/Area] mL/min/{1.73_m2} Normal >60 [facility] Comment on above: Result Comment: Calc ulations of estimated GFR are performed using the 2020 CKD-EPI Study Refit equation without the race variable for the IDMS-Traceable creatinine methods. https://jasn.asnjournals.org/content//ASN.96272239 88 Performed By: #### 2 4321-2 #### MELISA Galvan ([id number]) [facility] () [address] [place] [address] Glucose [Mass/Vol] 68 mg/dL Normal 65-99 [facility] Comment on above: Performed By: #### 2 4321-2 #### MELISA Galvan ([id number]) [facility] () [address] [place] [address] Potassium [Moles/Vol] 4.0 mmol/L Normal 3.4-5.1 [facility] Comment on above: Performed By: #### 2 4321-2 #### MELISA Galvan ([id number]) [facility] () [address] [place] [address] Sodium [Moles/Vol] 142 mmol/L Normal 133-145 [facility] Comment on above: Performed By: #### 2 4321-2 #### MELISA Galvan ([id number]) [facility] () [address] [place] [address] Urea nitrogen [Mass/Vol] 8 mg/dL Normal 8-25 [facility] Comment on above: Performed By: #### 2 4321-2 #### MELISA Galvan ([id number]) [facility] () [address] [place] [address] Blood type and Indirect anti body screen panel (Bld)on 03-02-2023 ABO group Nom (Bld) O Normal [facility] Comment on above: Performed By: #### 3 4532-2 #### MELISA Galvan ([id number]) [facility] ([facility]) [address] [place] [address] [place] Blood group antibody screen Ql Negative [facility] Comment on above: Performed By: #### 3 4532-2 #### MELISA Galvan ([id number]) [facility] ([facility]) [id number] [place] [address] [place] D Ag Ql (Bld) Positive [facility] Comment on above: Performed By: #### 3 4532-2 #### MELISA Galvan ([id number]) [facility] ([facility]) [address] Staphylococcus aureus.methic illin resistant isolateon 03-02-2023 MRSA isol Org specific cx Ql (Nose) Test: Staphylococcus aureus/MRSA colonization, Culture Specimen Source: Anterior Nares Specimen Type: Swab Specimen Date: 03/02/2023 3:17 PM Result Date: 03/04/2023 7:55 AM Result Status: Final result Abnormal: No Resulting Lab: [facility] [address] [place] [address] CULTURE No Staphylococcus aureus isolated [facility] Comment on above: Performed By: #### 5 2969-3 #### ALON Johnson ([id number]) [facility] ([facility]) [address] [place] [address] Alanine aminotransferase [En zymatic activity/volume] in Serum or PlasmaOrdered By: Roseline Mejia on 02-13-2023 ALT [Catalytic activity/Vol] 11 U/L Normal [facility] Comment on above: Performed By: #### C BC, BMP, HEPATIC, LIPASE #### [facility] [address] [place] [address] [place] Albumin [Mass/volume] in Ser um or Plasma by Bromocresol green (BCG) dye binding methoOrdered By: Roseline Mejia on 02-13-2023 Albumin BCG dye [Mass/Vol] 4.0 g/dL 3.5-5.7 [facility] Alkaline phosphatase [Enzyma tic activity/volume] in Serum or PlasmaOrdered By: Roseline Mejia on 02-13-2023 ALP [Catalytic activity/Vol] 55 U/L Normal 34-104 [facility] Comment on above: Performed By: #### C BC, BMP, HEPATIC, LIPASE #### [address] Aspartate aminotransferase [ Enzymatic activity/volume] in Serum or PlasmaOrdered By: Roseline Mejia on 02-13-2023 AST [Catalytic activity/Vol] 20 U/L Normal 13-39 [facility] Comment on above: Performed By: #### C BC, BMP, HEPATIC, LIPASE #### [address] Automated basophil %Ordered By: Roseline Mejia on 02-13-2023 Basophils/100 WBC (Bld) 1.2 % Normal . [facility] Comment on above: Performed By: #### C BC, BMP, HEPATIC, LIPASE #### [address] Automated basophil countOrde red By: Roseline Mejia on 02-13-2023 Basophils (Bld) [#/Vol] 0.1 10*3/uL Normal 0.0-0.2 [facility] Comment on above: Result Comment: PERF ORMED BY: [place] [address] PATHOLOGIST SALES OPERATIONS ASSISTANT BAUTISTA BAKER M.D. Performed By: #### C BC, BMP, HEPATIC, LIPASE #### [address] Automated blood monocyte cou ntOrdered By: Roseline Mejia on 02-13-2023 Monocytes (Bld) [#/Vol] 0.3 10*3/uL Normal 0.0-0.8 [facility] Comment on above: Performed By: #### C BC, BMP, HEPATIC, LIPASE #### [address] Automated eosinophil %Ordere d By: Roseline Mejia on 02-13-2023 Eosinophils/100 WBC (Bld) 1.7 % Normal . [facility] Comment on above: Performed By: #### C BC, BMP, HEPATIC, LIPASE #### [address] Automated eosinophil countOr dered By: Roseline Mejia on 02-13-2023 Eosinophils (Bld) [#/Vol] 0.1 10*3/uL Normal 0.0-0.45 [facility] Comment on above: Performed By: #### C BC, BMP, HEPATIC, LIPASE #### [address] Automated monocyte %Ordered By: Roseline Mejia on 02-13-2023 Monocytes/100 WBC (Bld) 7.3 % Normal . [facility] Comment on above: Performed By: #### C BC, BMP, HEPATIC, LIPASE #### [address] Automated neutrophil %Ordere d By: Roseline Mejia on 02-13-2023 Neutrophils/100 WBC (Bld) 49.0 % Normal . [facility] Comment on above: Performed By: #### C BC, BMP, HEPATIC, LIPASE #### [address] Automated urine color determ inationOrdered By: Roseline Mejia on 02-13-2023 Color (U) Yellow Normal Yellow [facility] Comment on above: Order Comment: Name Collection Type:: Clean-Voided Midstream Performed By: #### C BC, BMP, HEPATIC, LIPASE #### [address] Basic Metabolic Panelon 01-17 Creatinine Clr Calc Pharmacy 119.02 Normal [facility] Comment on above: Performed By: #### C BC, BMP, HEPATIC, LIPASE #### [address] GFR/1.73 sq M.predicted MDRD (S/P/Bld) [Vol rate/Area] mL/min/{1.73_m2} Normal [facility] Comment on above: Performed By: #### C BC, BMP, HEPATIC, LIPASE #### [address] Bilirubin Test strip Ql (U)O rdered By: Roseline Mejia on 02-13-2023 Bilirubin Ql (U) Negative Negative [facility] Bilirubin.direct [Mass/volum e] in Serum or PlasmaOrdered By: Roseilne Mejia on 02-13-2023 Bilirubin.direct [Mass/Vol] 0.10 mg/dL 0.03-0.18 [facility] Bilirubin.total [Mass/volume ] in Serum or PlasmaOrdered By: Roseline Mejia on 02-13-2023 Bilirubin [Mass/Vol] 0.5 mg/dL Normal 0.3-1.0 [facility] Comment on above: Performed By: #### C BC, BMP, HEPATIC, LIPASE #### [address] abdomen pelvis w conon CT abdomen pelvis w con [facility] Main [place] [address] [place] [address] CT Scan Report Signed Patient: Abbey Garcia MR#: [id number] : 1990 Acct:[id number] Age/Sex: 32 / F ADM Date: 02/13/23 Loc: ER Room: Type: [facility] ER Attending Dr: Copies to: DO [...] Nondistended small bowel. Impression dictated by: Jason Palomo M.D.02/13/2023 3:42 PM Dictation Location: [place] [address] Transcribed By: [facility] 02/13/23 1542 Dictated By: Jason Palomo DO 02/13/23 1537 Signed By: 02/13/23 1542 Normal [facility] Calcium [Mass/volume] in Ser um or PlasmaOrdered By: Roseline Mejia on 02-13-2023 Calcium [Mass/Vol] 8.8 mg/dL Normal 8.6-10.3 [facility] Comment on above: Performed By: #### C BC, BMP, HEPATIC, LIPASE #### [address] Carbon dioxide, total [Moles /volume] in Serum or PlasmaOrdered By: Roseline Mejia on 02-13-2023 CO2 [Moles/Vol] 21.2 mmol/L Normal 21.0-31.0 [facility] Comment on above: Performed By: #### C BC, BMP, HEPATIC, LIPASE #### [facility] [address] Chloride [Moles/volume] in S elder or PlasmaOrdered By: Roseline Mejia on 02-13-2023 Chloride [Moles/Vol] 109 mmol/L High 98-107 [facility] Comment on above: Performed By: #### C BC, BMP, HEPATIC, LIPASE #### [facility] [address] Complete Blood Count Auto Di ffon 02-13-2023 Mean Corpuscular HGB Conc 34.9 g/dL Normal 32.0-35.0 [facility] Comment on above: Performed By: #### C BC, BMP, HEPATIC, LIPASE #### [address] Monocytes/100 WBC (Bld) 17.39 % Normal 0.00-20.00 [facility] Comment on above: Performed By: #### C BC, BMP, HEPATIC, LIPASE #### [address] NRBC% 0.2 /100{WBC} Normal 0-0.5 [facility] Comment on above: Performed By: #### C BC, BMP, HEPATIC, LIPASE #### [address] Creatinine [Mass/volume] in Serum or PlasmaOrdered By: Roseline Mejia on 02-13-2023 Creatinine [Mass/Vol] 0.73 mg/dL Normal 0.60-1.20 [facility] Comment on above: Performed By: #### C BC, BMP, HEPATIC, LIPASE #### [address] Erythrocyte distribution wid th [Ratio] by Automated countOrdered By: Roseline Mejia on 02-13-2023 Erythrocyte distribution width (RBC) [Ratio] 13.0 % Normal 11.9-15.3 [facility] Comment on above: Performed By: #### C BC, BMP, HEPATIC, LIPASE #### [address] Erythrocytes [#/volume] in B lood by Automated countOrdered By: Roseline Mejia on 02-13-2023 RBC (Bld) [#/Vol] 4.07 10*6/uL Normal 3.60-5.00 [facility] Comment on above: Performed By: #### C BC, BMP, HEPATIC, LIPASE #### [address] Glucose [Mass/volume] in Ser um or PlasmaOrdered By: Roseline Mejia on 02-13-2023 Glucose [Mass/Vol] 85 mg/dL Normal 70-100 [facility] Comment on above: ADA recommended refe rence rangeRandom Glucose Reference Range is dependent on time and content of last meal. Glucose of more than 200 mg/dL in a nonstressed, ambulatory subject supports the diagnosis of Diabetes Mellitus. Result Comment: [place] om Glucose Reference Range is dependent on time and content of last meal. Glucose of more than 200 mg/dL in a nonstressed, ambulatory subject supports the diagnosis of Diabetes Mellitus. ADA recommended reference range Performed By: #### C BC, BMP, HEPATIC, LIPASE #### [place] [address] [place] HCG ( test) IA.rapi d Ql (U)Ordered By: Roseline Mejia on 02-13-2023 HCG ( test) Ql (U) Negative [facility] HCG,Urineon 02-13-2023 Beta HCG ( test) Ql (U) Negative Normal [facility] Comment on above: Order Comment: Name Collection Type:: Clean-Voided Midstream Result Comment: PERF ORMED BY: [place] [address] PATHOLOGIST SALES OPERATIONS ASSISTANT BAUTISTA BAKER M.D. Performed By: #### C BC, BMP, HEPATIC, LIPASE #### [facility] [address] [place] [address] Hematocrit [Volume Fraction] of Blood by Automated countOrdered By: Roseline Mejia on 02-13-2023 Hematocrit (Bld) [Volume fraction] 36.3 % Normal 34.0-46.4 [facility] Comment on above: Performed By: #### C BC, BMP, HEPATIC, LIPASE #### [address] Hemoglobin [Mass/volume] in BloodOrdered By: Roseline Mejia on 02-13-2023 Hemoglobin (Bld) [Mass/Vol] 12.7 g/dL Normal 11.8-15.4 [facility] Comment on above: Performed By: #### C BC, BMP, HEPATIC, LIPASE #### [facility] [address] Hepatic Panelon 02-13-2023 Albumin [Mass/Vol] 4.0 g/dL Normal 3.5-5.7 [facility] Comment on above: Performed By: #### C BC, BMP, HEPATIC, LIPASE #### [facility] [address] Bilirubin,Indirect 0.4 mg/dL Normal [facility] Comment on above: Performed By: #### C BC, BMP, HEPATIC, LIPASE #### [facility] [address] Bilirubin.indirect [Mass/Vol] 0.10 mg/dL Normal 0.03-0.18 [facility] Comment on above: Performed By: #### C BC, BMP, HEPATIC, LIPASE #### [address] Ketones Auto test strip (U) [Mass/Vol]Ordered By: Roseline Mejia on 02-13-2023 Ketones (U) [Mass/Vol] Trace Negative [facility] Leukocytes [#/volume] correc darvin for nucleated erythrocytes in Blood by Automated counOrdered By: Roseline Mejia on 02-13-2023 WBC corrected for nucl RBC Auto (Bld) [#/Vol] 4.2 10*3/uL 3.8-11.6 [facility] Leukocytes [#/volume] in Blo od by Automated countOrdered By: Roseline Mejia on 02-13-2023 WBC (Bld) [#/Vol] 4.2 10*3/uL Normal 3.8-11.6 [facility] Comment on above: Performed By: #### C BC, BMP, HEPATIC, LIPASE #### [facility] [address] Lipase [Enzymatic activity/v olume] in Serum or PlasmaOrdered By: Roseline Mejia on 02-13-2023 Lipase [Catalytic activity/Vol] 42.0 U/L Normal 11.0-82.0 [facility] Comment on above: Result Comment: PERF ORMED BY: [place] [address] PATHOLOGIST SALES OPERATIONS ASSISTANT BAUTISTA BAKER M.D. Performed By: #### C BC, BMP, HEPATIC, LIPASE #### [facility] [address] [place] [address] Lymphocytes [#/volume] in Bl ood by Automated countOrdered By: Roseline Mejia on 02-13-2023 Lymphocytes (Bld) [#/Vol] 1.7 10*3/uL Normal 1.00-4.8 [facility] Comment on above: Performed By: #### C BC, BMP, HEPATIC, LIPASE #### [address] Lymphocytes/100 leukocytes i n Blood by Automated countOrdered By: Roseline Mejia on 02-13-2023 Lymphocytes/100 WBC (Bld) 40.8 % Normal . [facility] Comment on above: Performed By: #### C BC, BMP, HEPATIC, LIPASE #### [facility] [address] [place] [address] MCH [Entitic mass] by Automa darvin countOrdered By: Roseline Mejia on 02-13-2023 MCH (RBC) [Entitic mass] 31.1 pg Normal 24.7-34.3 [facility] Comment on above: Performed By: #### C BC, BMP, HEPATIC, LIPASE #### [address] MCHC Auto (RBC) [Mass/Vol]Or dered By: Roseline Mejia on 02-13-2023 MCHC (RBC) [Mass/Vol] 34.9 g/dL 32.0-35.0 [facility] MCV [Entitic volume] by Auto mated countOrdered By: Roseline Mejia on 02-13-2023 MCV (RBC) [Entitic vol] 89.2 fL Normal 80-100 [facility] Comment on above: Performed By: #### C BC, BMP, HEPATIC, LIPASE #### [facility] [address] Monocyte distribution width [Entitic volume] in Blood by AutomatedOrdered By: Roseline Mejia on 02-13-2023 Monocyte distribution width Auto (Bld) [Entitic vol] 17.39 % 0.00-20.00 [facility] Neutrophils [#/volume] in Bl ood by Automated countOrdered By: Roseline Mejia on 02-13-2023 Neutrophils (Bld) [#/Vol] 2.0 10*3/uL Normal 1.8-7.7 [facility] Comment on above: Performed By: #### C BC, BMP, HEPATIC, LIPASE #### [facility] [address] [place] [address] Nitrite Test strip Ql (U)Ord ered By: Roseline Mejia on 02-13-2023 Nitrite Ql (U) Negative Negative [facility] No Panel InformationOrdered By: Roseline Mejia on 02-13-2023 Estimated GFR (CKD-EPI) > 60.0 mL/Min [facility] Creatinine Clearance (Chem 119.02 [facility] Nucleated erythrocytes [Pres ence] in Blood by Automated countOrdered By: Roseline Mejia on 02-13-2023 Nucleated RBC Auto Ql (Bld) 0.2 /100{WBC} 0-0.5 [facility] Platelet mean volume [Entiti c volume] in Blood by Automated countOrdered By: Roseline Mejia on 02-13-2023 Platelet mean volume (Bld) [Entitic vol] 8.8 fL Normal 6.3-10.7 [facility] Comment on above: Performed By: #### C BC, BMP, HEPATIC, LIPASE #### [facility] [address] [place] [address] Platelets [#/volume] in Bloo d by Automated countOrdered By: Roseline Mejia on 02-13-2023 Platelets (Bld) [#/Vol] 288 10*3/uL Normal 150-450 [facility] Comment on above: Performed By: #### C BC, BMP, HEPATIC, LIPASE #### [address] Potassium [Moles/volume] in Serum or PlasmaOrdered By: Roseline Mejia on 02-13-2023 Potassium [Moles/Vol] 3.7 mmol/L Normal 3.5-5.1 [facility] Comment on above: Performed By: #### C BC, BMP, HEPATIC, LIPASE #### [address] Protein Auto test strip (U) [Mass/Vol]Ordered By: Roseline Mejia on 02-13-2023 Protein (U) [Mass/Vol] Negative Negative [facility] Protein [Mass/volume] in Ser um or PlasmaOrdered By: Roseline Mejia on 02-13-2023 Protein [Mass/Vol] 6.9 g/dL Normal 6.4-8.9 [facility] Comment on above: Performed By: #### C BC, BMP, HEPATIC, LIPASE #### [address] Serum globulin measurement b y calculation (mass/volume)Ordered By: Roseline Mejia on 02-13-2023 Globulin (S) [Mass/Vol] 2.9 g/dL Normal [facility] Comment on above: Performed By: #### C BC, BMP, HEPATIC, LIPASE #### [address] Serum or plasma albumin/glob ulin mass ratioOrdered By: Roseline Mejia on 02-13-2023 Albumin/Globulin [Mass ratio] 1.4 {ratio} Normal [facility] Comment on above: Performed By: #### C BC, BMP, HEPATIC, LIPASE #### [address] Serum or plasma anion gap de terminationOrdered By: Roseline Mejia on 02-13-2023 Anion gap [Moles/Vol] 10.5 mmol/L Normal 6.0-15.0 [facility] Comment on above: Performed By: #### C BC, BMP, HEPATIC, LIPASE #### [facility] [address] [place] [address] Serum or plasma non-glucuron idated bilirubin measurement (mass/volume)Ordered By: Roseline Mejia on 02-13-2023 Bilirubin.indirect [Mass/Vol] 0.4 mg/dL [facility] Sodium [Moles/volume] in Ser um or PlasmaOrdered By: Roseline Mejia on 02-13-2023 Sodium [Moles/Vol] 137 mmol/L Normal 136-145 [facility] Comment on above: Performed By: #### C BC, BMP, HEPATIC, LIPASE #### [address] Specific gravity Auto test s trip (U) [Rel density]Ordered By: Roseline Mejia on 02-13-2023 Specific gravity (U) [Rel density] 1.017 1.001-1.030 [facility] Urea nitrogen [Mass/volume] in Serum or PlasmaOrdered By: Roseline Mejia on 02-13-2023 Urea nitrogen [Mass/Vol] 10 mg/dL Normal 7-25 [facility] Comment on above: Performed By: #### C BC, BMP, HEPATIC, LIPASE #### [address] Urinalysison 02-13-2023 Appearance (U) Clear Normal Clear [facility] Comment on above: Order Comment: Name Collection Type:: Clean-Voided Midstream Performed By: #### C BC, BMP, HEPATIC, LIPASE #### [address] Bilirubin,Urine Negative Normal Negative [facility] Comment on above: Order Comment: Name Collection Type:: Clean-Voided Midstream Performed By: #### C BC, BMP, HEPATIC, LIPASE #### [address] Glucose Ql (U) Normal Normal Normal [facility] Comment on above: Order Comment: Name Collection Type:: Clean-Voided Midstream Performed By: #### C BC, BMP, HEPATIC, LIPASE #### [address] Ketones Ql (U) Trace High Negative [facility] Comment on above: Order Comment: Name Collection Type:: Clean-Voided Midstream Performed By: #### C BC, BMP, HEPATIC, LIPASE #### [address] Leukocyte esterase Test strip Ql (U) Negative Normal Negative [facility] Comment on above: Order Comment: Name Collection Type:: Clean-Voided Midstream Performed By: #### C BC, BMP, HEPATIC, LIPASE #### [place] [address] [place] Nitrite,Urine Negative Normal Negative [facility] Comment on above: Order Comment: Name Collection Type:: Clean-Voided Midstream Performed By: #### C BC, BMP, HEPATIC, LIPASE #### [address] Occult Blood,Urine Negative Normal Negative [facility] Comment on above: Order Comment: Name Collection Type:: Clean-Voided Midstream Performed By: #### C BC, BMP, HEPATIC, LIPASE #### [address] Protein,Urine Negative Normal Negative [facility] Comment on above: Order Comment: Name Collection Type:: Clean-Voided Midstream Performed By: #### C BC, BMP, HEPATIC, LIPASE #### [place] [address] [place] Specificy [place],Urine 1.017 Normal 1.001-1.030 [facility] Comment on above: Order Comment: Name Collection Type:: Clean-Voided Midstream Performed By: #### C BC, BMP, HEPATIC, LIPASE #### [address] Urobilinogen,Urine Normal Normal Normal [facility] Comment on above: Order Comment: Name Collection Type:: Clean-Voided Midstream Performed By: #### C BC, BMP, HEPATIC, LIPASE #### [facility] [address] Urine clarity by refractomet ry automatedOrdered By: Roseline Mejia on 02-13-2023 Clarity Refractometry automated (U) Clear Clear [facility] Urine glucose measurement by automated test strip (mass/volume)Ordered By: Roseline Mejia on 02-13-2023 Glucose Auto test strip (U) [Mass/Vol] Normal mg/dL Normal [facility] Urine hemoglobin detection b y automated test stripOrdered By: Roseline Mejia on 02-13-2023 Hemoglobin Auto test strip Ql (U) Negative Negative [facility] Urine leukocyte esterase det ection by automated test stripOrdered By: Roseline Mejia on 02-13-2023 Leukocyte esterase Auto test strip Ql (U) Negative Negative [facility] Urine pH measurement by auto mated test stripOrdered By: Roseline Mejia on 02-13-2023 pH (U) 5.5 [pH] Normal 5.0-9.0 [facility] Comment on above: Order Comment: Name Collection Type:: Clean-Voided Midstream Performed By: #### C BC, BMP, HEPATIC, LIPASE #### [facility] [address] Urobilinogen Auto test strip (U) [Mass/Vol]Ordered By: Roseline Mejia on 02-13-2023 Urobilinogen (U) [Mass/Vol] Normal mg/dL Normal [facility] CBC W Auto Differential pane l (Bld)on 02-12-2023 Basophils (Bld) [#/Vol] 0.02 x10*3/uL Normal 0.00-0.10 [facility] Comment on above: Performed By: #### 5 7021-8 #### OUMAR BRICEÑO ([id number]) [facility] ([facility]) [address] [place] [address] Basophils/100 WBC (Bld) 0.5 % Normal 0.0-2.0 [facility] Comment on above: Performed By: #### 5 7021-8 #### OUMAR BRICEÑO ([id number]) [facility] ([facility]) [address] [place] [address] Eosinophils (Bld) [#/Vol] 0.06 x10*3/uL Normal 0.00-0.70 [facility] Comment on above: Performed By: #### 5 7021-8 #### OUMAR BRICEÑO ([id number]) [facility] ([facility]) [address] [place] [address] Eosinophils/100 WBC (Bld) 1.4 % Normal 0.0-6.0 [facility] Comment on above: Performed By: #### 5 7021-8 #### OUMAR BRICEÑO ([id number]) [facility] ([facility]) [address] [place] [address] Erythrocyte distribution width (RBC) [Ratio] 12.1 % Normal 11.5-14.5 [facility] Comment on above: Performed By: #### 5 7021-8 #### OUMAR BRICEÑO ([id number]) [facility] ([facility]) [address] [place] [address] Hematocrit (Bld) [Volume fraction] 37.9 % Normal 36.0-46.0 [facility] Comment on above: Performed By: #### 5 7021-8 #### OUMAR BRICEÑO (80522) [facility] ([facility]) [address] [place] [address] Hemoglobin (Bld) [Mass/Vol] 12.8 g/dL Normal 12.0-16.0 [facility] Comment on above: Performed By: #### 5 7021-8 #### OUMAR BRICEÑO ([id number]) [facility] ([facility]) [address] [place] [address] Immature granulocytes (Bld) [#/Vol] 0.01 x10*3/uL Normal 0.00-0.70 [facility] Comment on above: Performed By: #### 5 7021-8 #### OUMAR BRICEÑO ([id number]) [facility] ([facility] [address] [place] [address] Immature granulocytes/100 WBC (Bld) 0.2 % Normal 0.0-0.9 [facility] Comment on above: Result Comment: Janny ture Granulocyte Count (IG) includes promyelocytes, myelocytes and metamyelocytes but does not include bands. Percent differential counts (%) should be interpreted in the context of the absolute cell counts (cells/UL). Performed By: #### 5 7021-8 #### OUMAR BRICEÑO ([id number]) [facility] ([facility] [address] [place] [address] Lymphocytes (Bld) [#/Vol] 1.63 x10*3/uL Normal 1.20-4.80 [facility] Comment on above: Performed By: #### 5 7021-8 #### OUMAR BRICEÑO ([id number]) [facility] ([facility] [address] [place] [address] 03632 Lymphocytes/100 WBC (Bld) 38.9 % Normal 13.0-44.0 [facility] Comment on above: Performed By: #### 5 7021-8 #### OUMAR BRICEÑO (46849) [facility] ([facility] [address] [place] [address] MCH (RBC) [Entitic mass] 30.5 pg Normal 26.0-34.0 [facility] Comment on above: Performed By: #### 5 7021-8 #### OUMAR BRICEÑO (49749) [facility] ([facility] [address] [place] [address] MCHC (RBC) [Mass/Vol] 33.8 g/dL Normal 32.0-36.0 [facility] Comment on above: Performed By: #### 5 7021-8 #### OUMAR BRICEÑO (96079) [facility] ([facility]) [address] [place] [address] MCV (RBC) [Entitic vol] 91 fL Normal 80-100 [facility] Comment on above: Performed By: #### 5 7021-8 #### OUMAR BRICEÑO (40090) [facility] ([facility] [address] [place] [address] Monocytes (Bld) [#/Vol] 0.26 x10*3/uL Normal 0.10-1.00 [facility] Comment on above: Performed By: #### 5 7021-8 #### OUMAR BRICEÑO (94232) [facility] ([facility]) [address] [place] [address]40 Monocytes/100 WBC (Bld) 6.2 % Normal 2.0-10.0 [facility] Comment on above: Performed By: #### 5 7021-8 #### OUMAR BRICEÑO ([id number]) [facility] ([facility]) [address] [place] [address] 09254 Neutrophils (Bld) [#/Vol] 2.21 x10*3/uL Normal 1.20-7.70 [facility] Comment on above: Result Comment: Perc ent differential counts (%) should be interpreted in the context of the absolute cell counts (cells/uL). Performed By: #### 5 7021-8 #### OUMAR BRICEÑO (55396) [facility] ([facility]) [address] [place] [address] 17006 Neutrophils/100 WBC (Bld) 52.8 % Normal 40.0-80.0 [facility] Comment on above: Performed By: #### 5 7021-8 #### OUMAR BRICEÑO (21921) [facility] ([facility]) [address] [place] [address] Nucleated RBC/100 WBC (Bld) [Ratio] 0.0 /100 WBCs Normal 0.0-0.0 [facility] Comment on above: Performed By: #### 5 7021-8 #### OUMAR BRICEÑO (50987) [facility] ([facility] [address] [place] [address] Platelets (Bld) [#/Vol] 291 x10*3/uL Normal 150-450 [facility] Comment on above: Performed By: #### 5 7021-8 #### OUMAR BRICEÑO (22751) [facility] ([facility]) [address] [place] [address] RBC (Bld) [#/Vol] 4.19 x10*6/uL Normal 4.00-5.20 [facility] Comment on above: Performed By: #### 5 7021-8 #### OUMAR BRICEÑO (48315) [facility] ([facility]) [address] [place] [address]76 WBC (Bld) [#/Vol] 4.2 x10*3/uL Low 4.4-11.3 [facility] Comment on above: Performed By: #### 5 7021-8 #### OUMAR BRICEÑO ([id number]) [facility] ([facility]) [address] [place] [address]939 Comprehensive metabolic 2000 panelon 02-12-2023 Albumin BCP dye [Mass/Vol] 4.2 g/dL Normal 3.4-5.0 [facility] Comment on above: Performed By: #### 2 4323-8 #### OUMAR BRICEÑO (23348) [facility] ([facility]) [address] [place] [address] ALP [Catalytic activity/Vol] 55 U/L Normal 33-110 [facility] Comment on above: Performed By: #### 2 4323-8 #### OUMAR BRICEÑO (69236) [facility] ([facility]) [address] [place] [address] ALT With P-5'-P [Catalytic activity/Vol] 13 U/L Normal 7-45 [facility] Comment on above: Result Comment: Umm ents treated with Sulfasalazine may generate falsely decreased results for ALT. Performed By: #### 2 4323-8 #### OUMAR BRICEÑO (36398) [facility] ([facility]) [address] [place] [address] Anion gap [Moles/Vol] 13 mmol/L Normal 10-20 [facility] Comment on above: Performed By: #### 2 4323-8 #### OUMAR BRICEÑO (96010) [facility] ([facility]) [address] [place] [address] AST With P-5'-P [Catalytic activity/Vol] 21 U/L Normal 9-39 [facility] Comment on above: Performed By: #### 2 4323-8 #### OUMAR BRICEÑO (69767) [facility] ([facility]) [address] [place] [address] Bilirubin [Mass/Vol] 0.5 mg/dL Normal 0.0-1.2 [facility] Comment on above: Performed By: #### 2 4323-8 #### OUMAR BRICEÑO (80547) [facility] ([facility]) [address] [place] [address] Calcium [Mass/Vol] 8.9 mg/dL Normal 8.6-10.3 [facility] Comment on above: Performed By: #### 2 4323-8 #### OUMAR BRICEÑO (06188) [facility] ([facility]) [address] [place] [address] Chloride [Moles/Vol] 107 mmol/L Normal 98-107 [facility] Comment on above: Performed By: #### 2 4323-8 #### OUMAR BRICEÑO (08110) [facility] ([facility]) [address] [place] [address] CO2 [Moles/Vol] 23 mmol/L Normal 21-32 [facility] Comment on above: Performed By: #### 2 4323-8 #### OUMAR BRICEÑO (30363) [facility] ([facility]) [address] [place] [address] Creatinine [Mass/Vol] 0.73 mg/dL Normal 0.50-1.05 [facility] Comment on above: Performed By: #### 2 4323-8 #### OUMAR BRICEÑO (41395) [facility] ([facility]) [address] [place] [address] GFR/1.73 sq M.predicted MDRD (S/P/Bld) [Vol rate/Area] mL/min/{1.73_m2} Normal >60 [facility] Comment on above: Result Comment: Calc ulations of estimated GFR are performed using the 2020 CKD-EPI Study Refit equation without the race variable for the IDMS-Traceable creatinine methods. https://jasn.asnjournals.org/content/early//ASN.18551952 88 Performed By: #### 2 4323-8 #### OUMAR BRICEÑO (68782) [facility] ([facility]) [address] [place] [address] Glucose [Mass/Vol] 84 mg/dL Normal 74-99 [facility] Comment on above: Performed By: #### 2 4323-8 #### OUMAR BRICEÑO (27688) [facility] ([facility]) [address] [place] [address] Potassium [Moles/Vol] 3.6 mmol/L Normal 3.5-5.3 [facility] Comment on above: Performed By: #### 2 4323-8 #### OUMAR BRICEÑO (43184) [facility] ([facility]) [address] [place] [address] Protein [Mass/Vol] 7.0 g/dL Normal 6.4-8.2 [facility] Comment on above: Performed By: #### 2 4323-8 #### OUMAR BRICEÑO (78655) [facility] ([facility]) [address] [place] [address] Sodium [Moles/Vol] 139 mmol/L Normal 136-145 [facility] Comment on above: Performed By: #### 2 4323-8 #### OUMAR BRICEÑO (32441) [facility] ([facility]) [address] [place] [address] Urea nitrogen [Mass/Vol] 9 mg/dL Normal 6-23 [facility] Comment on above: Performed By: #### 2 4323-8 #### OUMAR BRICEÑO (89628) [facility] ([facility]) [address] [place] [address] Lactateon 02-12-2023 Lactate [Moles/Vol] 0.6 mmol/L Normal 0.4-2.0 [facility] Comment on above: Order Comment: Venip uncture immediately after or during the administration of Metamizole may lead to falsely low results. Testing should be performed immediately prior to Metamizole dosing. Performed By: #### 2 524-7 #### OUMAR BRICEÑO (10702) [facility] ([facility]) [address] [place] [address]40[address] Triacylglycerol lipaseon Lipase [Catalytic activity/Vol] 43 U/L Normal 9-82 [facility] Comment on above: Order Comment: Venip uncture immediately after or during the administration of Metamizole may lead to falsely low results. Testing should be performed immediately prior to Metamizole dosing. Performed By: #### 3 040-3 #### OUMAR BRICEÑO (96289) [facility] ([facility]) [address] [place] [address]326 Urinalysis complete panel (U )on 02-12-2023 Appearance (U) Clear Normal Clear [facility] Comment on above: Performed By: #### 2 4356-8 #### OUMAR BRICEÑO ([id number]) [facility] ([facility]) [address] [place] [address] Bilirubin (U) [Mass/Vol] Negative Normal NEGATIVE [facility] Comment on above: Performed By: #### 2 4356-8 #### OUMAR BRICEÑO (40470) [facility] ([facility]) [address] [place] [address] Color (U) Yellow Normal Straw, Yellow [facility] Comment on above: Performed By: #### 2 4356-8 #### OUMAR BRICEÑO ([id number]) [facility] ([facility]) [address] [place] [address] Glucose Auto test strip (U) [Mass/Vol] Negative Normal NEGATIVE [facility] Comment on above: Performed By: #### 2 4356-8 #### OUMAR BRICEÑO ([id number]) [facility] ([facility]) [address] [place] [address] Ketones (U) [Mass/Vol] Negative Normal NEGATIVE [facility] Comment on above: Performed By: #### 2 4356-8 #### OUMAR BRICEÑO ([id number]) [facility] ([facility]) [address] [place] [address] Leukocyte esterase Auto test strip Ql (U) Negative Normal NEGATIVE [facility] Comment on above: Performed By: #### 2 4356-8 #### OUMAR BRICEÑO (43148) [facility] ([facility] [address] [place] [address] Nitrite Auto test strip Ql (U) Negative Normal NEGATIVE [facility] Comment on above: Performed By: #### 2 4356-8 #### OUMAR BRICEÑO (12251) [facility] ([facility]) [address] [place] [address] pH (U) 6.0 [pH] Normal 5.0, 5.5, 6.0, 6.5, 7.0, 7.5, 8.0 [facility] Comment on above: Performed By: #### 2 4356-8 #### OUMAR BRICEÑO (49371) [facility] ([facility]) [address] [place] [address] Protein (U) [Mass/Vol] Negative Normal NEGATIVE [facility] Comment on above: Performed By: #### 2 4356-8 #### OUMAR BRICEÑO ([id number]) [facility] ([facility]) [address] [place] [address] RBC (U) [#/Vol] Negative Normal NEGATIVE [facility] Comment on above: Performed By: #### 2 4356-8 #### OUMAR BRICEÑO (87385) [facility] ([facility]) [address] [place] [address] Specific gravity (U) [Rel density] 1.021 Normal 1.005-1.035 [facility] Comment on above: Performed By: #### 2 4356-8 #### OUMAR BRICEÑO (67010) [facility] ([facility] [address] [place] [address] Urobilinogen (U) [Mass/Vol] mg/dL Normal <2.0 [facility] Comment on above: Performed By: #### 2 4356-8 #### OUMAR BRICEÑO (57386) [facility] ([facility] [address] [place] [address]2018 CNPNon 02-11-2023 CNPN Normal [facility] HISTORY PHYSICALon HISTORY PHYSICAL HNO ID: [id number] Author: Vic Ramos MD Service: Pain Management [...] DATE: February 10, 2023 TIME: 2:00 PM [facility] HISTORY PHYSICAL HNO ID: [id number] Author: Anam Carter APRN.STORE CUSTODIAN Service: General Internal Medicine Author Type: Nurse Practitioner Type: HANDP Filed: 02/10/2023 2:04 PM Note Text: Abbey Garcia returns to [facility] for the treatment of [...] arcuate ligament syndrome Plan: Block celiac plexus Anam Carter APRN.[facility] OPERATIVE NOon 02-10-2023 OPERATIVE NO HNO ID: [id number] Author: Vic Ramos MD Service: Pain Management Author Type: Anesthesiologist Type: Operative Report Filed: 02/10/2023 2:41 PM Note Text: [facility] Pre-Procedure Note Patient Name: Abbey Garcia SUBJECTIVE: Abbey Garcia is a 32 year old female who presents to [facility]. This is her 1st. Patient denies any contraindications to the procedure including . 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 OBJECTIVE: BP 121/74 [...] procedure. Vic Ramos MD February 10, 2023 [facility] Post-Procedure Note Patient [...] February 10, 2023 day of surgery Normal [facility] Family Medicine Office/Clini c Noteon 02-03-2023 Family Medicine Office/Clinic Note Normal [facility] Comment on above: Result Comment: Elec tronically Signed By: Jaquan Paula\.rene\Date and Time Signed: 02/03/23 15:18 EST Zachary 01-15-2023 CNPN Normal [facility] VASC US MESENTERIC ARTERY DU PLEX COMPLETEon 01-14-2023 VASC US MESENTERIC ARTERY DUPLEX COMPLETE [place] [id number] Vascular Lab Report 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 History of gastric bypass with [...] PSV 116 cm/s Splenic PSV 77 cm/s [id number] Boggs MD, DORA Final Normal [facility] CBC W Auto Differential pane l (Bld)on 01-13-2023 Basophils (Bld) [#/Vol] 0.04 x10*3/uL Normal 0.00-0.10 [facility] Comment on above: Performed By: #### 5 7021-8 #### MELISA Galvan (06189) [facility] ([facility]) [address] [place] [address] Basophils/100 WBC (Bld) 0.7 % Normal 0.0-2.0 [facility] Comment on above: Performed By: #### 5 7021-8 #### MELISA Galvan (47292) [facility] () [address] [place] [address] Eosinophils (Bld) [#/Vol] 0.13 x10*3/uL Normal 0.00-0.70 [facility] Comment on above: Performed By: #### 5 7021-8 #### MELISA Galvan ([id number]) [facility] () [address] [place] [address] Eosinophils/100 WBC (Bld) 2.2 % Normal 0.0-6.0 [facility] Comment on above: Performed By: #### 5 7021-8 #### MELISA Galvan ([id number]) [facility] () [address] [place] [address] Erythrocyte distribution width (RBC) [Ratio] 12.4 % Normal 11.5-14.5 [facility] Comment on above: Performed By: #### 5 7021-8 #### MELISA Galvan (43060) [facility] () [address] [place] [address] Hematocrit (Bld) [Volume fraction] 36.6 % Normal 36.0-46.0 [facility] Comment on above: Performed By: #### 5 7021-8 #### MELISA Galvan (60580) [facility] () [address] [place] [address] Hemoglobin (Bld) [Mass/Vol] 12.6 g/dL Normal 12.0-16.0 [facility] Comment on above: Performed By: #### 5 7021-8 #### MELISA Galvan (34569) [facility] () [address] [place] [address] Immature granulocytes (Bld) [#/Vol] 0.01 x10*3/uL Normal 0.00-0.70 [facility] Comment on above: Performed By: #### 5 7021-8 #### MELISA Galvan (54030) [facility] () [address] [place] [address] Immature granulocytes/100 WBC (Bld) 0.2 % Normal 0.0-0.9 [facility] Comment on above: Result Comment: Janny ture Granulocyte Count (IG) includes promyelocytes, myelocytes and metamyelocytes but does not include bands. Percent differential counts (%) should be interpreted in the context of the absolute cell counts (cells/UL). Performed By: #### 5 7021-8 #### MELISA Galvan (94316) [facility] () [address] [place] [address] Lymphocytes (Bld) [#/Vol] 2.26 x10*3/uL Normal 1.20-4.80 [facility] Comment on above: Performed By: #### 5 7021-8 #### MELISA Galvan (63009) [facility] () [address] [place] [address] Lymphocytes/100 WBC (Bld) 39.0 % Normal 13.0-44.0 [facility] Comment on above: Performed By: #### 5 7021-8 #### MELISA Galvan (17338) [facility] () [address] [place] [address] MCH (RBC) [Entitic mass] 30.7 pg Normal 26.0-34.0 [facility] Comment on above: Performed By: #### 5 7021-8 #### MELISA Galvan (22950) [facility] () [address] [place] [address] MCHC (RBC) [Mass/Vol] 34.4 g/dL Normal 32.0-36.0 [facility] Comment on above: Performed By: #### 5 7021-8 #### MELISA Galvan (74592) COUNT INCLUDES THE [facility] () [address] [place] [address] MCV (RBC) [Entitic vol] 89 fL Normal 80-100 [facility] Comment on above: Performed By: #### 5 7021-8 #### MELISA Galvan (92324) [facility] () [address] [place] [address] Monocytes (Bld) [#/Vol] 0.41 x10*3/uL Normal 0.10-1.00 [facility] Comment on above: Performed By: #### 5 7021-8 #### MELISA Galvan (88608) [facility] () [address] [place] [address] Monocytes/100 WBC (Bld) 7.1 % Normal 2.0-10.0 [facility] Comment on above: Performed By: #### 5 7021-8 #### MELISA Galvan (47732) [facility] () [address] [place] [address] Neutrophils (Bld) [#/Vol] 2.95 x10*3/uL Normal 1.20-7.70 [facility] Comment on above: Result Comment: Perc ent differential counts (%) should be interpreted in the context of the absolute cell counts (cells/uL). Performed By: #### 5 7021-8 #### MELISA Galvan (09574) [facility] () [address] [place] [address] Neutrophils/100 WBC (Bld) 50.8 % Normal 40.0-80.0 [facility] Comment on above: Performed By: #### 5 7021-8 #### MELISA Galvan (36208) [facility] () [address] [place] [address] Nucleated RBC/100 WBC (Bld) [Ratio] 0.0 /100 WBCs Normal 0.0-0.0 [facility] Comment on above: Performed By: #### 5 7021-8 #### MELISA Galvan (25826) [facility] () [address] [place] [address] Platelets (Bld) [#/Vol] 222 x10*3/uL Normal 150-450 [facility] Comment on above: Performed By: #### 5 7021-8 #### MELISA Galvan (32136) [facility] () [address] [place] [address] RBC (Bld) [#/Vol] 4.11 x10*6/uL Normal 4.00-5.20 [facility] Comment on above: Performed By: #### 5 7021-8 #### MELISA Galvan (50848) [facility] () [address] [place] [address] WBC (Bld) [#/Vol] 5.8 x10*3/uL Normal 4.4-11.3 [facility] Comment on above: Performed By: #### 5 7021-8 #### MELISA Galvan (47196) [facility] () [address] [place] [address] Comprehensive metabolic 2000 panelon 01-13-2023 Albumin [Mass/Vol] 4.2 g/dL Normal 3.5-5.0 [facility] Comment on above: Performed By: #### 2 4323-8 #### MELISA Galvan (56838) [facility] () [address] [place] [address] ALP (Bld) [Catalytic activity/Vol] 74 U/L Normal 35-125 [facility] Comment on above: Performed By: #### 2 4323-8 #### MELISA Galvan (29972) [facility] () [address] [place] [address] ALT [Catalytic activity/Vol] 15 U/L Normal 5-40 [facility] Comment on above: Performed By: #### 2 4323-8 #### MELISA Galvan (08286) [facility] () [address] [place] [address] Anion gap [Moles/Vol] 10 mmol/L Normal <=19 [facility] Comment on above: Performed By: #### 2 4323-8 #### MELISA Galvan (41076) [facility] () [address] [place] [address] AST [Catalytic activity/Vol] 26 U/L Normal 5-40 [facility] Comment on above: Performed By: #### 2 432-8 #### MELISA Galvan (59017) [facility] () [address] [place] [address] Bilirubin [Mass/Vol] 0.5 mg/dL Normal 0.1-1.2 [facility] Comment on above: Performed By: #### 2 4323-8 #### MELISA Galvan (67941) [facility] () [address] [place] [address] Calcium [Mass/Vol] 9.1 mg/dL Normal 8.5-10.4 [facility] Comment on above: Performed By: #### 2 4323-8 #### MELISA Galvan (50669) [facility] () [address] [place] [address] Chloride [Moles/Vol] 103 mmol/L Normal 97-107 [facility] Comment on above: Performed By: #### 2 4323-8 #### MELISA Galvan (40704) [facility] () [address] [place] [address] CO2 [Moles/Vol] 23 mmol/L Low 24-31 [facility] Comment on above: Performed By: #### 2 4323-8 #### MELISA Galvan (97889) [facility] () [address] [place] [address] Creatinine [Mass/Vol] 0.70 mg/dL Normal 0.40-1.60 [facility] Comment on above: Performed By: #### 2 4323-8 #### MELISA Galvan (06620) [facility] () [address] [place] [address] GFR/1.73 sq M.predicted MDRD (S/P/Bld) [Vol rate/Area] mL/min/{1.73_m2} Normal >60 [facility] Comment on above: Result Comment: Calc ulations of estimated GFR are performed using the 2020 CKD-EPI Study Refit equation without the race variable for the IDMS-Traceable creatinine methods. https://jasn.asnjournals.org/content/early//ASN.59072839 88 Performed By: #### 2 4323-8 #### MELISA Galvan ([id number]) [facility] () [address] [place] [address] Glucose [Mass/Vol] 89 mg/dL Normal 65-99 [facility] Comment on above: Performed By: #### 2 4323-8 #### MELISA Galvan ([id number]) [facility] () [address] [place] [address] Potassium [Moles/Vol] 3.5 mmol/L Normal 3.4-5.1 [facility] Comment on above: Performed By: #### 2 4323-8 #### MELISA Galvan ([id number]) [facility] [facility] () [address] [place] [address] Protein [Mass/Vol] 6.9 g/dL Normal 5.9-7.9 [facility] Comment on above: Performed By: #### 2 4323-8 #### MELISA Galvan ([id number]) [facility] () [address] [place] [address] Sodium [Moles/Vol] 136 mmol/L Normal 133-145 [facility] Comment on above: Performed By: #### 2 4323-8 #### MELISA Galvan ([id number]) [facility] () [address] [place] [address] Urea nitrogen [Mass/Vol] 13 mg/dL Normal 8-25 [facility] Comment on above: Performed By: #### 2 4323-8 #### MELISA Galvan ([id number]) [facility] () [address] [place] [address] HCG ( test) IA.rapi d Ql (U)on 01-13-2023 HCG ( test) Ql (U) Negative Normal NEGATIVE [facility] Comment on above: Performed By: #### 8 0384-1 #### MELISA Galvan () [facility] () [address] [place] [address] Urinalysis complete panel (U )on 01-13-2023 Appearance (U) Clear Normal Clear [facility] Comment on above: Performed By: #### 2 4356-8 #### MELISA Galvan () [facility] () [address] [place] [address] Bilirubin (U) [Mass/Vol] Negative Normal NEGATIVE [facility] Comment on above: Performed By: #### 2 4356-8 #### MELISA Galvan ([id number]) [facility] () [address] [place] [address] Color (U) Light-Yellow Normal Light-Yellow, Yellow, Dark-Yellow [facility] Comment on above: Performed By: #### 2 4356-8 #### MELISA Galvan ([id number]) [facility] () [address] [place] [address] Glucose Auto test strip (U) [Mass/Vol] Normal Normal Normal [facility] Comment on above: Performed By: #### 2 4356-8 #### MELISA Galvan ([id number]) [facility] () [address] [place] [address] Ketones (U) [Mass/Vol] Negative Normal NEGATIVE [facility] Comment on above: Performed By: #### 2 4356-8 #### MELISA Galvan ([id number]) [facility] () [address] [place] [address] Leukocyte esterase Auto test strip Ql (U) Negative Normal NEGATIVE [facility] Comment on above: Performed By: #### 2 4356-8 #### MELISA Galvan (74349) [facility] () [address] [place] [address] Nitrite Auto test strip Ql (U) Negative Normal NEGATIVE [facility] Comment on above: Performed By: #### 2 4356-8 #### MELISA Galvan (68861) [facility] () [address] [place] [address] pH (U) 7.0 [pH] Normal 5.0, 5.5, 6.0, 6.5, 7.0, 7.5, 8.0 [facility] Comment on above: Performed By: #### 2 4356-8 #### MELISA Galvan (69895) [facility] () [address] [place] [address] Protein (U) [Mass/Vol] Negative Normal NEGATIVE, 10 (TRACE), 20 (TRACE) [facility] Comment on above: Performed By: #### 2 4356-8 #### MELISA Galvan ([id number]) [facility] () [address] [place] [address] RBC (U) [#/Vol] Negative Normal NEGATIVE [facility] Comment on above: Performed By: #### 2 4356-8 #### MELISA Galvan ([id number]) [facility] () [address] [place] [address] Specific gravity (U) [Rel density] 1.010 Normal 1.005-1.035 [facility] Comment on above: Performed By: #### 2 4356-8 #### MELISA Galvan ([id number]) [facility] () [address] [place] [address] Urobilinogen (U) [Mass/Vol] Normal Normal Normal [facility] Comment on above: Performed By: #### 2 4356-8 #### MELISA Galvan ([id number]) [facility] (MW) [address] [place] [address] CNPNon 01-11-2023 [facility]N [facility]2023 CNPN Normal [facility] Auto Diffon 12-31-2022 Basophils/100 WBC (Bld) 0.6 % Normal 0.0-2.0 [facility] Comment on above: Order Comment: Order Added by Discern Expert. Performed By: #### 2 491771, 0259608, 27316657, 9439438, 0244562, 84535820, 6490693 ####[address] [address] Basophils/Leukocyte s Auto (Bld) [Pure # fraction] 0.0 E9/L Normal 0.0-0.2 [facility] Comment on above: Order Comment: Order Added by Discern Expert. Performed By: #### 2 664885, 4449623, 58205056, 5314009, 9314647, 65549660, 8857700 ####[address] [address] Eosinophils/100 WBC (Bld) 0.4 % Normal 0.0-8.0 [facility] Comment on above: Order Comment: Order Added by Discern Expert. Performed By: #### 2 582201, 4120999, 46745772, 8771317, 3730231, 37333455, 6581902 ####[address] [place] [address] Eosinophils/Leukocy stevan Auto (Bld) [Pure # fraction] 0.0 E9/L Normal 0.0-0.5 [facility] Comment on above: Order Comment: Order Added by Discern Expert. Performed By: #### 2 419547, 3209721, 48700962, 8079768, 1671465, 71552759, 8058807 ####[address] [place] [address] Lymphocytes/100 WBC (Bld) 42.3 % Normal 14.0-50.0 [facility] Comment on above: Order Comment: Order Added by Discern Expert. Performed By: #### 2 004625, 4880040, 04404517, 7925026, 6609284, 52550916, 6317755 ####[address] [address] Lymphocytes/Leukocy stevan Auto (Bld) [Pure # fraction] 1.9 E9/L Normal 1.0-4.0 [facility] Comment on above: Order Comment: Order Added by Discern Expert. Performed By: #### 2 319038, 7075104, 82314326, 5381490, 0561066, 22723994, 0833419 ####[address] [address] Monocytes/100 WBC (Bld) 7.9 % Normal 4.0-14.0 [facility] Comment on above: Order Comment: Order Added by Mariela Expert. Performed By: #### 2 051336, 2671028, 66020510, 8118077, 8270621, 95937922, 3336085 ####[address] [address] Monocytes/Leukocyte s Auto (Bld) [Pure # fraction] 0.4 E9/L Normal 0.2-1.0 [facility] Comment on above: Order Comment: Order Added by Discern Expert. Performed By: #### 2 034016, 7390775, 54569251, 8758016, 6322093, 00515777, 9333933 ####[address] [place] [address] Neutrophils/100 WBC (Bld) 48.8 % Normal 36.0-75.0 [facility] Comment on above: Order Comment: Order Added by Mariela Expert. Performed By: #### 2 912384, 2922278, 42852356, 8882099, 7591317, 53024391, 1088574 ####[facility] [place] [address] Neutrophils/Leukocy stevan Auto (Bld) [Pure # fraction] 2.2 E9/L Normal 2.0-7.5 [facility] Comment on above: Order Comment: Order Added by Discern Expert. Performed By: #### 2 348723, 3274963, 45401240, 7161866, 4301475, 12342489, 6097860 ####[facility] [address] [place] [address] B hCG Qualon 12-31-2022 Beta HCG ( test) Ql Negative Normal [facility] Comment on above: Performed By: #### 2 181533, 0913115, 95171595, 8805902, 7692697, 61030071, 5130697 ####[facility] [address] [place] [address] BMPon 12-31-2022 Creatinine [Mass/Vol] 0.8 mg/dL Normal 0.5-1.3 [facility] Comment on above: Performed By: #### 2 569916, 2633121, 04865365, 8617297, 8617922, 93008246, 9208433 ####[facility] [address] [place] [address] Urea nitrogen [Mass/Vol] 16 mg/dL Normal 5-21 [facility] Comment on above: Performed By: #### 2 087613, 4240671, 25397463, 1677686, 2670211, 31350938, 6244493 ####[facility] [address] [place] [address] Urea nitrogen/Creatinine [Mass ratio] 20 No Units Normal 10-20 [facility] Comment on above: Performed By: #### 2 865633, 5690404, 14681411, 5697711, 9973003, 75843461, 4034328 ####[facility] [address] [place] [address] Anion gap [Moles/Vol] 10 mmol/L Normal 6-16 [facility] Comment on above: Performed By: #### 2 762636, 7600052, 90990419, 1891886, 0318799, 03032241, 5124851 ####[facility] [address] [place] [address] Calcium [Mass/Vol] 8.6 mg/dL Low 8.9-11.1 [facility] Comment on above: Performed By: #### 2 057883, 7699561, 37334543, 4557630, 6217464, 29699971, 3279419 ####[facility] [address] [place] [address] Chloride [Moles/Vol] 110 mmol/L Normal 101-111 [facility] Comment on above: Performed By: #### 2 411901, 0781709, 25028440, 4275605, 8602645, 32354933, 2648433 ####[facility] [address] [place] [address] CO2 [Moles/Vol] 20 mmol/L Low 21-31 [facility] Comment on above: Performed By: #### 2 287759, 0218274, 47680786, 5216352, 2042525, 16843668, 7237421 ####[facility] [address] [place] [address] Glucose [Mass/Vol] 87 mg/dL Normal 55-199 [facility] Comment on above: Result Comment: If t his glucose result represents a fasting glucose, interpretation should refer to the following reference range: 55-99 mg/dL Performed By: #### 2 478645, 9300774, 28029008, 5884876, 1425319, 27170234, 2087095 ####[facility] [address] [place] [address] Potassium [Moles/Vol] 3.2 mmol/L Low 3.5-5.3 [facility] Comment on above: Performed By: #### 2 220047, 1756011, 95191245, 6478742, 0230807, 73312701, 8087864 ####[facility] [address] [place] [address] Sodium [Moles/Vol] 137 mmol/L Normal 135-145 [facility] Comment on above: Performed By: #### 2 001583, 1189129, 50694333, 4626127, 2480348, 02768743, 7917167 ####[facility] [address] [place] [address] CBC w/ Auto Diffon Erythrocyte distribution width (RBC) [Ratio] 13.9 % Normal 10.9-14.2 [facility] Comment on above: Performed By: #### 2 804771, 2566041, 01515635, 3207217, 8917527, 11804126, 5495050 ####[address] [address] Hematocrit (Bld) [Volume fraction] 35.5 % Normal 34.0-46.0 [facility] Comment on above: Performed By: #### 2 833278, 9183089, 57696819, 5542643, 2838856, 68999233, 4724610 ####[address] [address] Hemoglobin (Bld) [Mass/Vol] 12.2 g/dL Normal 12.0-16.0 [facility] Comment on above: Performed By: #### 2 957246, 8888935, 95124216, 5226152, 6667044, 33556000, 7892342 ####[address] [address] MCH (RBC) [Entitic mass] 30.8 pg Normal 27.0-34.0 [facility] Comment on above: Performed By: #### 2 676397, 5126689, 54097620, 7071095, 1524222, 45011967, 6772487 ####[address] [address] MCHC (RBC) [Mass/Vol] 34.4 g/dL Normal 31.4-36.0 [facility] Comment on above: Performed By: #### 2 751869, 2685392, 21619615, 8681484, 6153177, 35416890, 9686518 ####[address] [address] MCV (RBC) [Entitic vol] 89.5 fL Normal 80.0-100.0 [facility] Comment on above: Performed By: #### 2 455387, 5961460, 12047179, 0288381, 6711833, 51734219, 3756477 ####[address] [address] Platelet mean volume (Bld) [Entitic vol] 9.5 fL Normal 6.4-10.8 [facility] Comment on above: Performed By: #### 2 209386, 6484066, 54783505, 7904913, 6248949, 50544210, 6330516 ####[address] [address] Platelets (Bld) [#/Vol] 177.0 E9/L Normal 150.0-500.0 [facility] Comment on above: Performed By: #### 2 497096, 9146212, 71145255, 1983307, 3867052, 87656053, 0423017 ####[address] [address] RBC (Bld) [#/Vol] 4.0 E12/L Low 4.3-5.9 [facility] Comment on above: Performed By: #### 2 949441, 8721730, 56994708, 2261261, 5681793, 18280951, 3107226 ####[address] [address] WBC corrected for nucl RBC Auto (Bld) [#/Vol] 4.4 E9/L Normal 4.0-11.0 [facility] Comment on above: Performed By: #### 2 010463, 8755679, 91273506, 9459646, 0284697, 73236724, 9012259 ####[facility] [address] [place] [address] CHEMISTRYOrdered By: SYSTEM SYSTEM on 12-31-2022 Albumin [...] rate/Area] 100 mL/min/1.73 m2 Normal >=59mL/min/1.73 m2 [facility] Chem S Comment on above: Interpretive Data: C hronic kidney disease could be indicated at eGFR's of less than 60 mL/min/1.73m2. Kidney failure is indicated at less than 15 mL/min/1.73m2. Globulin (S) [Mass/Vol] 2.9 g/dL Normal 1.4 - 4.0 gm/dL [facility] Remisol Glucose [Mass/Vol] 87 mg/dL Normal 55 - 199 mg/dL [facility] Remisol Comment on above: Interpretive Data: I f this glucose result represents a fasting glucose, interpretation should refer to the following reference range: 55-99 mg/dL Lipase [Catalytic activity/Vol] 49 U/L Normal 13 - 58 unit/L [facility] Remisol Potassium [Moles/Vol] 3.2 mmol/L Low 3.5 - 5.3 mmol/L [facility] Remisol Protein [Mass/Vol] 6.8 g/dL Normal 6.0 - 7.8 gm/dL [facility] Remisol Sodium [Moles/Vol] 137 mmol/L Normal 135 - 145 mmol/L [facility] Remisol Urea nitrogen [Mass/Vol] 16 mg/dL Normal 5 - 21 mg/dL [facility] Remisol Urea nitrogen/Creatinine [Mass ratio] 20 mg/mg Normal 10 - 20 [facility] Remisol Consent for Treatmenton 12-16 Consent for Treatment [id number] 34#1.00TIFF Normal [facility] Discharge Instructionson Discharge Instructions [id number] 93#1.00TIFF Normal [facility] ED Clinical Summaryon 2022 ED Clinical Summary Normal [facility] ED Note-Physicianon 01-01-20 ED Note-Physician Normal [facility] Comment on above: Result Comment: Elec tronically Signed By: Lonnie Rios PA-C\.br\Date and Time Signed: 12/31/22 19:15 EST\.br\Electronically Co-Signed By: Mateusz Garcia DO\.br\Date and Time Co-Signed: 12/31/22 19:25 EST ED Patient Education Noteon 12-31-2022 ED Patient Education Note Normal [facility] ED Patient Summaryon 023 ED Patient Summary Normal [facility] HEMATOLOGYOrdered By: SYSTEM SYSTEM on 12-31-2022 [...] 9.5 fL Normal 6.4 - 10.8 fL [facility] HemeAutoSS Platelets (Bld) [#/Vol] 177.0 E9/L Normal 150.0 - 500.0 E9/L [facility] HemeAutoSS RBC (Bld) [#/Vol] 4.0 E12/L Low 4.3 - 5.9 E12/L [facility] HemeAutoSS WBC corrected for nucl RBC Auto (Bld) [#/Vol] 4.4 E9/L Normal 4.0 - 11.0 E9/L [facility] HemeAutoSS Hep Func Panelon 12-31-2022 Albumin [Mass/Vol] 3.9 g/dL Normal 3.3-5.0 [facility] Comment on above: Performed By: #### 2 789552, 9422946, 97081462, 0735938, 8295641, 34761851, 6075141 ####[facility] [address] [place] [address] Albumin/Globulin (S) [Mass conc ratio] 1.3 Normal 1.1-2.2 [facility] Comment on above: Performed By: #### 2 501744, 9602113, 50536082, 3158433, 6869189, 04817880, 9054909 ####[facility] [address] [place] [address] ALP [Catalytic activity/Vol] 51 Int._Unit/L Normal 21-98 [facility] Comment on above: Performed By: #### 2 939802, 7218110, 06252133, 3891694, 3257817, 66275027, 4873003 ####[facility] [address] [place] [address] ALT No additional P-5'-P [Catalytic activity/Vol] 21 Int._Unit/L Normal 6-46 [facility] Comment on above: Performed By: #### 2 297676, 6589864, 07386007, 2914620, 5132936, 62479504, 5628181 ####[facility] [address] [place] [address] AST [Catalytic activity/Vol] 32 Int._Unit/L Normal 5-43 [facility] Comment on above: Performed By: #### 2 010286, 1563859, 70215417, 3995176, 4820827, 43154146, 5012450 ####[facility] [address] [place] [address] Bilirubin [Mass/Vol] 0.5 mg/dL Normal 0.0-1.1 [facility] Comment on above: Performed By: #### 2 401475, 6232272, 78498381, 9079317, 3283126, 68391502, 1051541 ####[address] [address] Bilirubin.direct [Mass/Vol] 0.1 mg/dL Normal 0.1-0.4 [facility] Comment on above: Performed By: #### 2 554493, 3914901, 46621123, 0790768, 7614301, 90021007, 2093952 ####[facility] [address] [place] [address] Bilirubin.indirect [Mass or moles/Vol] 0.4 mg/dL Normal 0.1-0.9 [facility] Comment on above: Performed By: #### 2 972062, 0195653, 37320656, 0452374, 0318507, 43897003, 4573415 ####[facility] [address] [place] [address] Globulin (S) [Mass/Vol] 2.9 g/dL Normal 1.4-4.0 [facility] Comment on above: Performed By: #### 2 973046, 8476950, 07813618, 9569668, 7186665, 76743934, 2679526 ####[facility] [address] [place] [address] Protein [Mass/Vol] 6.8 g/dL Normal 6.0-7.8 [facility] Comment on above: Performed By: #### 2 058257, 3759309, 40938803, 5621102, 1338654, 20336288, 9308242 ####[facility] [address] [place] [address] Lipase Levelon 12-31-2022 Lipase [Catalytic activity/Vol] 49 U/L Normal 13-58 [facility] Comment on above: Performed By: #### 2 212393, 0892139, 74477152, 7629572, 7127440, 75324470, 2930988 ####[facility] [address] [place] [address] SEROLOGYOrdered By: Stacia Blair on 12-31-2022 Beta HCG ( test) Ql Negative (12/31/22 1:16 PM) Normal [facility] Man Sero UA With Cult Reflexon 2022 Bilirubin Ql (U) Negative Normal Negative [facility] Comment on above: Performed By: #### 1 4285578 ####[address] [address] Clarity (U) CLEAR Normal Clear [facility] Comment on above: Performed By: #### 1 6349376 ####[address] [address] Color (U) YELLOW Normal Yellow [facility] Comment on above: Performed By: #### 1 6592322 ####[address] [address] Epithelial cells.squamous LM.HPF (Urine sed) [#/Area] 0-2 Normal 0-2 [facility] Comment on above: Performed By: #### 1 4715895 ####[facility] [address] [place] [address] Glucose Test strip (U) [Mass/Vol] Negative Normal Negative [facility] Comment on above: Performed By: #### 1 7842784 ####[facility] [address] [place] [address] Hemoglobin Ql (U) Negative Normal Negative [facility] Comment on above: Performed By: #### 1 7687513 ####[place] [address] [address] Ketones (U) [Mass/Vol] Negative Normal Negative [facility] Comment on above: Performed By: #### 1 0423009 ####[address] [address] [place].plasma/Lith ium.RBC (Bld) [Mass ratio] 0-3 Normal 0-3 [facility] Comment on above: Performed By: #### 1 9404666 ####[address] [address] Mucus Ql (Urine sed) TRACE Normal [facility] Comment on above: Performed By: #### 1 5744308 ####[address] [address] Nitrite Ql (U) Negative Normal Negative [facility] Comment on above: Performed By: #### 1 1724474 ####[address] [address] pH (U) 6.0 [pH] Invalid Interpretation Code 5.0-9.0 [facility] Comment on above: Performed By: #### 1 8847977 ####[address] [address] Protein (U) [Mass/Vol] Negative Normal Negative [facility] Comment on above: Performed By: #### 1 2364064 ####[address] [address] Specific gravity (U) [Rel density] 1.015 Invalid Interpretation Code 1.005-1.030 [facility] Comment on above: Performed By: #### 1 1866346 ####[address] [address] Type of Urine collection method Clean Catch Normal [facility] Comment on above: Performed By: #### 1 2928125 ####[address] [address] Urobilinogen Qn (U) 0.2 {Munir'U}/dL Normal 0.0-1.0 [facility] Comment on above: Performed By: #### 1 5417054 ####[facility] [address] [place] [address] WBC Auto Ql (U) Negative Normal Negative [facility] Comment on above: Performed By: #### 1 3413825 ####[facility] [address] [place] [address] WBC LM.HPF (Urine sed) [#/Area] 0-5 Normal 0-5 [facility] Comment on above: Performed By: #### 1 4682819 ####[facility] [address] [place] [address] URINALYSISOrdered By: Marlene Blair on 12-31-2022 Bilirubin [...] PM) Normal Negative [facility] UA Auto SS [place].plasma/Lith ium.RBC (Bld) [Mass ratio] 0-3 /HPF Normal [...] PM) Invalid Interpretation Code 1.005 - 1.030 [facility] UA Auto SS UA Spec Desc Clean Catch (12/31/22 1:16 PM) Normal [facility] UA Auto SS Urobilinogen Qn (U) 0.0341393 {Munir'U}/dL Normal 0.0 - 1.0 EU/dL [facility] UA Auto SS WBC Auto Ql (U) Negative (12/31/22 1:16 PM) Normal Negative [facility] UA Auto SS WBC LM.HPF (Urine sed) [#/Area] 0-5 /HPF Normal 0-5/HPF [facility] UA Auto SS eGFRon 12-31-2022 GFR/1.73 sq M.predicted among non-blacks MDRD (S/P/Bld) [Vol rate/Area] 100 mL/min/1.73 m2 Normal >=59 [facility] Comment on above: Order Comment: Order added by Discern Expert. 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 Kidney failure is indicated at less than 15 mL/min/1.73m2. Performed By: #### 2 237537, 3595935, 81315488, 4384401, 0428486, 82281571, 7529327 ####[facility] [address] [place] [address] Family Medicine Office/Clini c Noteon 12-29-2022 [facility] Medicine Office/Clinic Note Normal [facility] Comment on above: Result Comment: Elec tronically Signed By: Jaquan Paula\.br\Date and Time Signed: 12/29/22 15:35 EST Provider Letteron 12-29-2022 Provider Letter Normal [facility] CNCOon 12-28-2022 CNCO Letter Text Normal [facility] CNPNon 12-28-2022 CNPN Normal [facility] CNCOon 12-25-2022 CNCO Letter Text Normal [facility] CNPNon 12-23-2022 CNPN Normal [facility] CBC With Platelet and Differ entialon 12-14-2022 Basophils (Bld) [#/Vol] 0.0 10*3/uL Normal 0.0-0.2 [facility] Comment on above: Performed By: #### L IPAS #### [facility] [address] [place] [address] Basophils/100 WBC (Bld) 0.9 % Normal [facility] Comment on above: Performed By: #### L IPAS #### [facility] [address] [place] [address] Eosinophils (Bld) [#/Vol] 0.2 10*3/uL Normal 0.0-0.7 [facility] Comment on above: Performed By: #### L IPAS #### [facility] [address] [place] [address] Eosinophils/100 WBC (Bld) 4.0 % Normal [facility] Comment on above: Performed By: #### L IPAS #### [facility] [address] [place] [address] Erythrocyte distribution width (RBC) [Ratio] 13.2 % Normal 11.5-14.5 [facility] Comment on above: Performed By: #### L IPAS #### [facility] [address] [place] [address] Hematocrit (Bld) [Volume fraction] 36.5 % Low 37.0-47.0 [facility] Comment on above: Performed By: #### L IPAS #### [facility] [address] [place] [address] Hemoglobin (Bld) [Mass/Vol] 12.4 g/dL Normal 12.0-16.0 [facility] Comment on above: Performed By: #### L IPAS #### [facility] [address] [place] [address] Lymphocytes (Bld) [#/Vol] 1.7 10*3/uL Normal 1.0-4.8 [facility] Comment on above: Performed By: #### L IPAS #### [facility] [address] [place] [address] Lymphocytes/100 WBC (Bld) 40.7 % Normal [facility] Comment on above: Performed By: #### L IPAS #### [facility] [address] [place] [address] MCH (RBC) [Entitic mass] 31.0 pg Normal 27.0-31.3 [facility] Comment on above: Performed By: #### L IPAS #### [facility] [address] [place] [address] MCHC 34.0 % Normal 33.0-37.0 [facility] Comment on above: Performed By: #### L IPAS #### [facility] [address] [place] [address] MCV (RBC) [Entitic vol] 91.3 fL Normal 79.4-94.8 [facility] Comment on above: Performed By: #### L IPAS #### [facility] [address] [place] [address] Monocytes (Bld) [#/Vol] 0.3 10*3/uL Normal 0.2-0.8 [facility] Comment on above: Performed By: #### L IPAS #### [facility] [address] [place] [address] Monocytes/100 WBC (Bld) 7.7 % Normal [facility] [facility] Comment on above: Performed By: #### L IPAS #### [facility] [address] [place] [address] Neutrophils (Bld) [#/Vol] 2.0 10*3/uL Normal 1.4-6.5 [facility] Comment on above: Performed By: #### L IPAS #### [facility] [address] [place] [address] Neutrophils/100 WBC (Bld) 46.5 % Normal [facility] Comment on above: Performed By: #### L IPAS #### [facility] [address] [place] [address] Platelets (Bld) [#/Vol] 187 10*3/uL Normal 130-400 [facility] Comment on above: Performed By: #### L IPAS #### [facility] [address] [place] [address] RBC (Bld) [#/Vol] 4.00 10*6/uL Low 4.20-5.40 [facility] Comment on above: Performed By: #### L IPAS #### [facility] [address] [place] [address] WBC (Bld) [#/Vol] 4.3 10*3/uL Low 4.8-10.8 [facility] Comment on above: Performed By: #### L IPAS #### [facility] [address] [place] [address] CTA ABDOMEN PELVIS W WO CONT RASTon [...] #### [facility] [address] [place] [address] ALP [Catalytic activity/Vol] 70 U/L Normal 40-130 [facility] Comment on above: Performed By: #### L IPAS #### [facility] [address] [place] [address] ALT [Catalytic activity/Vol] 20 U/L Normal 0-33 [facility] Comment on above: Performed By: #### L IPAS #### [facility] [address] [place] [address] Anion gap [Moles/Vol] 16 mmol/L Critically high 9-15 [facility] Comment on above: Performed By: #### L IPAS #### [facility] [address] [place] [address] AST [Catalytic activity/Vol] 33 U/L Normal 0-35 [facility] Comment on above: Performed By: #### L IPAS #### [facility] [address] [place] [address] Bilirubin [Mass/Vol] 0.3 mg/dL Normal 0.2-0.7 [facility] Comment on above: Performed By: #### L IPAS #### [facility] [address] [place] [address] Calcium [Mass/Vol] 8.8 mg/dL Normal 8.5-9.9 [facility] Comment on above: Performed By: #### L IPAS #### [facility] [address] [place] [address] Chloride [Moles/Vol] 107 mmol/L Normal 95-107 [facility] Comment on above: Performed By: #### L IPAS #### [facility] [address] [place] [address] CO2 [Moles/Vol] 20 mmol/L Normal 20-31 [facility] Comment on above: Performed By: #### L IPAS #### [facility] [address] [place] [address] Creatinine [Mass/Vol] 0.75 mg/dL Normal 0.50-0.90 [facility] Comment on above: Performed By: #### L IPAS #### [facility] [address] [place] [address] GFR >60.0 Normal >60 [facility] [...] IPAS #### [facility] [address] [place] [address] Globulin (S) [Mass/Vol] 2.5 g/dL Normal 2.3-3.5 [facility] Comment on above: Performed By: #### L IPAS #### [facility] [address] [place] [address] Glucose [Mass/Vol] 88 mg/dL Normal 70-99 [facility] Comment on above: Performed By: #### L IPAS #### [facility] [address] [place] [address] Potassium [Moles/Vol] 3.8 mmol/L Normal 3.4-4.9 [facility] Comment on above: Performed By: #### L IPAS #### [facility] [address] [place] [address] Protein [Mass/Vol] 6.5 g/dL Normal 6.3-8.0 [facility] Comment on above: Performed By: #### L IPAS #### [facility] [address] [place] [address] Sodium [Moles/Vol] 143 mmol/L Normal 135-144 [facility] Comment on above: Performed By: #### L IPAS #### [facility] [address] [place] [address] Urea nitrogen [Mass/Vol] 11 mg/dL Normal 6-20 [facility] Comment on above: Performed By: #### L IPAS #### [facility] [address] [place] [address] Lipaseon 12-14-2022 Lipase [Catalytic activity/Vol] 39 U/L Normal 12-95 [facility] Comment on above: Performed By: #### L IPAS #### [facility] [address] [place] [address] POCT Venouson 12-14-2022 Creatinine [Mass/Vol] 0.8 mg/dL Normal 0.6-1.2 [facility] Comment on above: Performed By: #### P GLU #### [facility] [address] [place] [address] GFR >60 Normal >60 [facility] [...] GLU #### [facility] [address] [place] [address] POC Performed on SEE BELOW Normal [facility] Comment on above: Result Comment: Perf ormed on POC Performed By: #### P GLU #### [facility] [address] [place] [address] POC Sample Type KIRA Normal [facility] Comment on above: Performed By: #### P GLU #### [facility] [address] [place] [address] CNCOon 12-10-2022 CNCO Letter Text Normal [facility] ALLIED HEALTHon 12-09-2022 ALLIED HEALTH Normal [facility] CASE MANAGEMon 12-09-2022 CASE MANAGEM Normal [facility] CBC panel Auto (Bld)on 12-09 Erythrocyte distribution width (RBC) [Ratio] 13.5 % Normal 11.5-15.0 [facility] Comment on above: Order Comment: Speci men Type: BLOOD SPECIMENOrdering Facility: [facility] Address: [address] [place] [address] Performed By: #### 5 8410-2 ####[facility] LABCLIA [id number] [place] [address] [place] Hematocrit (Bld) [Volume fraction] 34.9 % Low 36.0-46.0 [facility] Comment on above: Order Comment: Speci men Type: BLOOD SPECIMENOrdering Facility: [facility] Address: [address] [place] [address] Performed By: #### 5 8410-2 ####[facility]CLIA [id number] [place] [address] [place] Hemoglobin (Bld) [Mass/Vol] 11.7 g/dL Normal 11.5-15.5 [facility] Comment on above: Order Comment: Speci men Type: BLOOD SPECIMENOrdering Facility: [facility] Address: [address] [place] [address] Performed By: #### 5 8410-2 ####[facility] LABIA [id number] [place] [address] [place] MCH (RBC) [Entitic mass] 31.0 pg Normal 26.0-34.0 [facility] Comment on above: Order Comment: Speci men Type: BLOOD SPECIMENOrdering Facility: [facility] Address: [address] [place] [address] Performed By: #### 5 8410-2 ####[facility] LABIA [id number] [place] [address] [place] MCHC (RBC) [Mass/Vol] 33.5 g/dL Normal 30.5-36.0 [facility] Comment on above: Order Comment: Speci men Type: BLOOD SPECIMENOrdering Facility: [facility] Address: [address] [place] [address] Performed By: #### 5 8410-2 ####[facility] LABIA [id number] [place] [address] [place] MCV (RBC) [Entitic vol] 92.3 fL Normal 80.0-100.0 [facility] Comment on above: Order Comment: Speci men Type: BLOOD SPECIMENOrdering Facility: [facility] Address: [address] [place] [address] Performed By: #### 5 8410-2 ####[facility] LABIA [id number] [place] [address] [place] Nucleated RBC (Bld) [#/Vol] 10*3/uL Normal <0.01 [facility] Comment on above: Order Comment: Speci men Type: BLOOD SPECIMENOrdering Facility: [facility] Address: [address] [place] [address] Performed By: #### 5 8410-2 ####[facility] LABIA [id number] [place] [address] [place] Platelet mean volume (Bld) [Entitic vol] 12.6 fL Normal 9.0-12.7 [facility] Comment on above: Order Comment: Speci men Type: BLOOD SPECIMENOrdering Facility: [facility] Address: [address] [place] [address] Performed By: #### 5 8410-2 ####[facility] LABCLIA [id number] [place] [address] [place] Platelets (Bld) [#/Vol] 172 10*3/uL Normal 150-400 [facility] Comment on above: Order Comment: Speci men Type: BLOOD SPECIMENOrdering Facility: [facility] Address: [address] [place] [address] Performed By: #### 5 8410-2 ####[facility] LABCLIA [id number] [place] [address] [place] RBC (Bld) [#/Vol] 3.78 10*6/uL Low 3.90-5.20 [facility] Comment on above: Order Comment: Speci men Type: BLOOD SPECIMENOrdering Facility: [facility] Address: [address] [place] [address] Performed By: #### 5 8410-2 ####[facility] LABIA [id number] [place] [address] [place] WBC (Bld) [#/Vol] 3.25 10*3/uL Low 3.70-11.00 [facility] Comment on above: Order Comment: Speci men Type: BLOOD SPECIMENOrdering Facility: [facility] Address: [address] [place] [address] Performed By: #### 5 8410-2 ####[facility] LABCLIA [id number] [place] [id number] [place] CNDSon 12-09-2022 CNDS Normal [facility] CNPNon 12-09-2022 CNPN Normal [facility] CONSULT PROGon 12-09-2022 CONSULT PROG Normal [facility] Comprehensive metabolic 2000 panelon 12-09-2022 Albumin [Mass/Vol] 3.6 g/dL Low 3.9-4.9 [facility] Comment on above: Order Comment: Speci men Type: BLOOD SPECIMENOrdering Facility: [facility] Address: [address] [place] [address] Performed By: #### 2 777-1, , ####[facility] LABCLIA [id number] [address] [address] [place] ALP [Catalytic activity/Vol] 59 U/L Normal 34-123 [facility] Comment on above: Order Comment: Speci men Type: BLOOD SPECIMENOrdering Facility: [facility] Address: [address] [place] [address] Performed By: #### 2 777-1, , ####[facility] LABCLIA [id number] [address] [address] [place] ALT [Catalytic activity/Vol] 13 U/L Normal 7-38 [facility] Comment on above: Order Comment: Speci men Type: BLOOD SPECIMENOrdering Facility: [facility] Address: [address] [place] [address] Performed By: #### 2 777-1, , ####[facility] LABCLIA [id number] [address] [address] [place] Anion gap [Moles/Vol] 9 mmol/L Normal 9-18 [facility] Comment on above: Order Comment: Speci men Type: BLOOD SPECIMENOrdering Facility: [facility] Address: [address] [place] [address] Performed By: #### 2 777-1, , ####[facility]CLIA [id number] [place] [address] [place] AST [Catalytic activity/Vol] 22 U/L Normal 13-35 [facility] Comment on above: Order Comment: Speci men Type: BLOOD SPECIMENOrdering Facility: [facility] Address: [address] [place] [address] Performed By: #### 2 777-1, , ####[facility]CLIA [id number] [place] [address] [place] Bilirubin [Mass/Vol] 0.2 mg/dL Normal 0.2-1.3 [facility] Comment on above: Order Comment: Speci men Type: BLOOD SPECIMENOrdering Facility: [facility] Address: [address] [place] [address] Performed By: #### 2 777-1, , ####[facility]CLIA [id number] [place] [address] [place] Calcium [Mass/Vol] 8.7 mg/dL Normal 8.5-10.2 [facility] Comment on above: Order Comment: Speci men Type: BLOOD SPECIMENOrdering Facility: [facility] Address: [address] [place] [address] Performed By: #### 2 777-1, , ####[facility] LABCLIA [id number] [place] [address] [place] Chloride [Moles/Vol] 108 mmol/L High 97-105 [facility] Comment on above: Order Comment: Speci men Type: BLOOD SPECIMENOrdering Facility: [facility] Address: [address] [place] [address] Performed By: #### 2 777-1, , ####[facility] LABCLIA [id number] [place] [address] [place] CO2 [Moles/Vol] 23 mmol/L Normal 22-30 [facility] Comment on above: Order Comment: Speci men Type: BLOOD SPECIMENOrdering Facility: [facility] Address: [address] [place] [address] Performed By: #### 2 777-1, , ####[facility] LABCLIA [id number] [place] [id number] [place] Creatinine [Mass/Vol] 0.61 mg/dL Normal 0.58-0.96 [facility] Comment on above: Order Comment: Speci men Type: BLOOD SPECIMENOrdering Facility: [facility] Address: [address] [place] [address] Performed By: #### 2 777-1, , ####[facility]CLIA [id number] [place] [address] [place] Creatinine and Glomerular filtration rate.predicted panel (S/P/Bld) 121 mL/min/1.73m??? Normal >=60 [facility] Comment on above: Order Comment: Speci men Type: BLOOD SPECIMENOrdering Facility: [facility] Address: [address] [place] [address] Result Comment: Jessica mated Glomerular Filtration Rate [...] GFR. Performed By: #### 2 777-1, , ####[facility] LABCLIA [id number] [place] [address] [place] Glucose [Mass/Vol] 79 mg/dL Normal 74-99 [facility] Comment on above: Order Comment: Speci men Type: BLOOD SPECIMENOrdering Facility: [facility] Address: [address] [place] [address] Result Comment: The [place] Diabetes Association (ADA) provides guidance for cutoff [...] Standards of Medical Care in Diabetes 2016, [place] [employer]. Diabetes Care. 2016.39(Suppl 1). Performed By: #### 2 777-1, , ####[facility]CLIA [id number] [place] [address] [place] Potassium [Moles/Vol] 4.2 mmol/L Normal 3.7-5.1 [facility] Comment on above: Order Comment: Speci men Type: BLOOD SPECIMENOrdering Facility: [facility] Address: [address] [place] [address] Performed By: #### 2 777-1, , ####[facility] LABIA [id number] [place] [address] [place] Protein [Mass/Vol] 5.8 g/dL Low 6.3-8.0 [facility] Comment on above: Order Comment: Speci men Type: BLOOD SPECIMENOrdering Facility: [facility] Address: [address] [place] [address] Performed By: #### 2 777-1, , ####[facility]CLIA [id number] [place] [address] [place] Sodium [Moles/Vol] 140 mmol/L Normal 136-144 [facility] Comment on above: Order Comment: Speci men Type: BLOOD SPECIMENOrdering Facility: [facility] Address: [address] [place] [address] Performed By: #### 2 777-1, , ####[facility] LABCLIA [id number] [place] [address] [place] Urea nitrogen [Mass/Vol] 16 mg/dL Normal 7-21 [facility] Comment on above: Order Comment: Speci men Type: BLOOD SPECIMENOrdering Facility: [facility] Address: [address] [place] [address] Performed By: #### 2 777-1, , ####[facility] LABCLIA [id number] [place] [address] [place] Magnesium SerPl-mCncon 12-09 Magnesium [Mass/Vol] 2.0 mg/dL Normal 1.7-2.3 [facility] Comment on above: Order Comment: Speci men Type: BLOOD SPECIMENOrdering Facility: [facility] Address: [address] [place] [address] Performed By: #### 2 777-1, , ####[facility] LABIA [id number] [place] [id number] [place] NURSING PROGon 12-09-2022 NURSING PROG Normal [facility] PT EDon 12-09-2022 PT ED Normal [facility] Phosphate SerPl-mCncon 12-09 Phosphate [Mass/Vol] 1.8 mg/dL Low 2.7-4.8 [facility] Comment on above: Order Comment: Speci men Type: BLOOD SPECIMENOrdering Facility: [facility] Address: [address] [place] [address] Result Comment: Resu lt rechecked. Performed By: #### 2 777-1, , ####[facility] LABCLIA [id number] [place] [id number] [place] ALLIED HEALTHon 12-08-2022 ALLIED HEALTH Normal [facility] CBC panel Auto (Bld)on 12-08 Erythrocyte distribution width (RBC) [Ratio] 13.4 % Normal 11.5-15.0 [facility] Comment on above: Order Comment: Speci men Type: BLOOD SPECIMENOrdering Facility: [facility] Address: [address] [place] [address] Performed By: #### 5 8410-2 ####[facility] LABIA [id number] [place] [address] [place] Hematocrit (Bld) [Volume fraction] 32.5 % Low 36.0-46.0 [facility] Comment on above: Order Comment: Speci men Type: BLOOD SPECIMENOrdering Facility: [facility] Address: [address] [place] [address] Performed By: #### 5 8410-2 ####[facility] LABIA [id number] [address] [place] Hemoglobin (Bld) [Mass/Vol] 11.1 g/dL Low 11.5-15.5 [facility] Comment on above: Order Comment: Speci men Type: BLOOD SPECIMENOrdering Facility: [facility] Address: [address] [place] [address] Performed By: #### 5 8410-2 ####[facility] LABIA [id number] [place] [address] [place] MCH (RBC) [Entitic mass] 31.2 pg Normal 26.0-34.0 [facility] Comment on above: Order Comment: Speci men Type: BLOOD SPECIMENOrdering Facility: [facility] Address: [address] [place] [address] Performed By: #### 5 8410-2 ####[facility] LABCLIA [id number] [place] [address] [place] MCHC (RBC) [Mass/Vol] 34.2 g/dL Normal 30.5-36.0 [facility] Comment on above: Order Comment: Speci men Type: BLOOD SPECIMENOrdering Facility: [facility] Address: [address] [place] [address] Performed By: #### 5 8410-2 ####[facility] LABCLIA [id number] [place] [address] [place] MCV (RBC) [Entitic vol] 91.3 fL Normal 80.0-100.0 [facility] Comment on above: Order Comment: Speci men Type: BLOOD SPECIMENOrdering Facility: [facility] Address: [address] [place] [address] Performed By: #### 5 8410-2 ####[facility] LABIA [id number] [place] [address] [place] Nucleated RBC (Bld) [#/Vol] 10*3/uL Normal <0.01 [facility] Comment on above: Order Comment: Speci men Type: BLOOD SPECIMENOrdering Facility: [facility] Address: [address] [place] [address] Performed By: #### 5 8410-2 ####[facility] LABIA [id number] [place] [address] [place] Platelet mean volume (Bld) [Entitic vol] 12.4 fL Normal 9.0-12.7 [facility] Comment on above: Order Comment: Speci men Type: BLOOD SPECIMENOrdering Facility: [facility] Address: [address] [place] [address] Performed By: #### 5 8410-2 ####[facility] LABIA [id number] [place] [address] [place] Platelets (Bld) [#/Vol] 161 10*3/uL Normal 150-400 [facility] Comment on above: Order Comment: Speci men Type: BLOOD SPECIMENOrdering Facility: [facility] Address: [address] [place] [address] Performed By: #### 5 8410-2 ####[facility] LABCLIA [id number] [place] [address] [place] RBC (Bld) [#/Vol] 3.56 10*6/uL Low 3.90-5.20 [facility] Comment on above: Order Comment: Speci men Type: BLOOD SPECIMENOrdering Facility: [facility] Address: [address] [place] [address] Performed By: #### 5 8410-2 ####[facility] LABIA [id number] [place] [address] [place] WBC (Bld) [#/Vol] 2.94 10*3/uL Low 3.70-11.00 [facility] Comment on above: Order Comment: Speci men Type: BLOOD SPECIMENOrdering Facility: [facility] Address: [address] [place] [address] Performed By: #### 5 8410-2 ####[facility] LABIA [id number] [place] [address] [place] CNPNon 12-08-2022 CNPN Normal [facility] CONSULT PROGon 12-08-2022 CONSULT PROG Normal [facility] Comprehensive metabolic 2000 panelon 12-08-2022 Albumin [Mass/Vol] 3.1 g/dL Low 3.9-4.9 [facility] Comment on above: Order Comment: Speci men Type: BLOOD SPECIMENOrdering Facility: [facility] Address: [address] [place] [address] Performed By: #### 2 4323-8, 2777-1, 78956-8 ####[facility] LABIA [id number] [place] [address] [place] ALP [Catalytic activity/Vol] 57 U/L Normal 34-123 [facility] Comment on above: Order Comment: Speci men Type: BLOOD SPECIMENOrdering Facility: [facility] Address: [address] [place] [address] Performed By: #### 2 4323-8, 27708-15, ####[facility] LABCLIA [id number] [place] [address] [place] ALT [Catalytic activity/Vol] 16 U/L Normal 7-38 [facility] Comment on above: Order Comment: Speci men Type: BLOOD SPECIMENOrdering Facility: [facility] Address: [address] [place] [address] Performed By: #### 2 4323-8, 2776-02, ####[facility] LABCLIA [id number] [place] [address] [place] Anion gap [Moles/Vol] 9 mmol/L Normal 9-18 [facility] Comment on above: Order Comment: Speci men Type: BLOOD SPECIMENOrdering Facility: [facility] Address: [address] [place] [address] Performed By: #### 2 4323-8, 2776-02, ####[facility] LABCLIA [id number] [place] [address] [place] AST [Catalytic activity/Vol] 26 U/L Normal 13-35 [facility] Comment on above: Order Comment: Speci men Type: BLOOD SPECIMENOrdering Facility: [facility] Address: [address] [place] [address] Performed By: #### 2 4323-8, 2776-02, ####[facility] LABIA [id number] [place] [id number] [place] Bilirubin [Mass/Vol] 0.2 mg/dL Normal 0.2-1.3 [facility] Comment on above: Order Comment: Speci men Type: BLOOD SPECIMENOrdering Facility: [facility] Address: [address] [place] [address] Performed By: #### 2 4323-8, 2776-02, ####[facility] LABCLIA [id number] [facility] [address] [address] [place] Calcium [Mass/Vol] 8.2 mg/dL Low 8.5-10.2 [facility] Comment on above: Order Comment: Speci men Type: BLOOD SPECIMENOrdering Facility: [facility] Address: [address] [place] [address] Performed By: #### 2 4323-8, 2776-02, ####[facility]CLIA [id number] [address] [address] [place] Chloride [Moles/Vol] 109 mmol/L High 97-105 [facility] Comment on above: Order Comment: Speci men Type: BLOOD SPECIMENOrdering Facility: [facility] Address: [address] [place] [address] Performed By: #### 2 4323-8, 2776-02, ####[facility] LABCLIA [id number] [address] [address] [place] CO2 [Moles/Vol] 23 mmol/L Normal 22-30 [facility] Comment on above: Order Comment: Speci men Type: BLOOD SPECIMENOrdering Facility: [facility] Address: [address] [place] [address] Performed By: #### 2 4323-8, 2776-02, ####[facility] LABCLIA [id number] [facility] [address] [address] [place] Creatinine [Mass/Vol] 0.73 mg/dL Normal 0.58-0.96 [facility] Comment on above: Order Comment: Speci men Type: BLOOD SPECIMENOrdering Facility: [facility] Address: [address] [id number] Performed By: #### 2 4323-8, 27708-15, ####[facility] LABCLIA [id number] [place] [address] [place] Creatinine and Glomerular filtration rate.predicted panel (S/P/Bld) 112 mL/min/1.73m??? Normal >=60 [facility] Comment on above: Order Comment: Geraldo marrero Type: BLOOD SPECIMENOrdering Facility: [facility] Address: [address] [place] [address] Result Comment: Jessica mated Glomerular Filtration Rate [...] GFR. Performed By: #### 2 4323-8, 2777-, ####[facility] LABCLIA [id number] [place] [id number] [place] Glucose [Mass/Vol] 119 mg/dL High 74-99 [facility] Comment on above: Order Comment: Geraldo marrero Type: BLOOD SPECIMENOrdering Facility: [facility] Address: [address] [place] [address] Result Comment: The [place] Diabetes Association (ADA) provides guidance for cutoff [...] Standards of Medical Care in Diabetes 2016, [place] [employer] Association. Diabetes Care. 2016.39(Suppl 1). Performed By: #### 2 4323-8, 2777-1, 96120-2 ####[facility] LABCLIA [id number] [place] [id number] [place] Potassium [Moles/Vol] 3.5 mmol/L Low 3.7-5.1 [facility] Comment on above: Order Comment: Speci men Type: BLOOD SPECIMENOrdering Facility: [facility] Address: [address] [place] [address] Performed By: #### 2 4323-8, 2776-02, ####[facility] LABCLIA [id number] [place] [address] [place] Protein [Mass/Vol] 5.2 g/dL Low 6.3-8.0 [facility] Comment on above: Order Comment: Speci men Type: BLOOD SPECIMENOrdering Facility: [facility] Address: [address] [place] [address] Performed By: #### 2 4323-8, 2776-02, ####[facility] LABCLIA [id number] [place] [address] [place] Sodium [Moles/Vol] 141 mmol/L Normal 136-144 [facility] Comment on above: Order Comment: Speci men Type: BLOOD SPECIMENOrdering Facility: [facility] Address: [address] [place] [address] Performed By: #### 2 4323-8, 2776-02, ####[facility] LABIA [id number] [place] [address] [place] Urea nitrogen [Mass/Vol] 10 mg/dL Normal 7-21 [facility] Comment on above: Order Comment: Speci men Type: BLOOD SPECIMENOrdering Facility: [facility] Address: [address] [place] [address] Performed By: #### 2 4323-8, 2776-02, ####[facility] LABCLIA [id number] [place] [id number] [place] Magnesium SerPl-ncon 12-08 Magnesium [Mass/Vol] 2.1 mg/dL Normal 1.7-2.3 [facility] Comment on above: Order Comment: Speci men Type: BLOOD SPECIMENOrdering Facility: [facility] Address: [address] [place] [address] Performed By: #### 2 4323-8, 2777-1, ####[facility] LABCLIA [id number] [place] [address] [place] Phosphate SerPl-mCncon 12-08 Phosphate [Mass/Vol] 4.7 mg/dL Normal 2.7-4.8 [facility] Comment on above: Order Comment: Speci men Type: BLOOD SPECIMENOrdering Facility: [facility] Address: [address] [place] [address] Performed By: #### 2 4323-8, 27708-15, ####[facility] LABCLIA [id number] [place] [address] [place] CBC panel Auto (Bld)on 12-07 Erythrocyte distribution width (RBC) [Ratio] 13.2 % Normal 11.5-15.0 [facility] Comment on above: Order Comment: Speci men Type: BLOOD SPECIMENOrdering Facility: [facility] Address: [address] [place] [address] Performed By: #### 5 8410-2 ####[facility] LABCLIA [id number] [place] [address] [place] Hematocrit (Bld) [Volume fraction] 33.9 % Low 36.0-46.0 [facility] Comment on above: Order Comment: Speci men Type: BLOOD SPECIMENOrdering Facility: [facility] Address: [address] [place] [address] Performed By: #### 5 8410-2 ####[facility] LABCLIA [id number] [place] [address] [place] Hemoglobin (Bld) [Mass/Vol] 11.6 g/dL Normal 11.5-15.5 [facility] Comment on above: Order Comment: Speci men Type: BLOOD SPECIMENOrdering Facility: [facility] Address: [address] [place] [address] Performed By: #### 5 8410-2 ####[facility] LABIA [id number] [place] [address] [place] MCH (RBC) [Entitic mass] 30.9 pg Normal 26.0-34.0 [facility] Comment on above: Order Comment: Speci men Type: BLOOD SPECIMENOrdering Facility: [facility] Address: [address] [place] [address] Performed By: #### 5 8410-2 ####[facility] LABIA [id number] [place] [address] [place] MCHC (RBC) [Mass/Vol] 34.2 g/dL Normal 30.5-36.0 [facility] Comment on above: Order Comment: Speci men Type: BLOOD SPECIMENOrdering Facility: [facility] Address: [address] [place] [address] Performed By: #### 5 8410-2 ####[facility] LABIA [id number] [place] [address] [place] MCV (RBC) [Entitic vol] 90.4 fL Normal 80.0-100.0 [facility] Comment on above: Order Comment: Speci men Type: BLOOD SPECIMENOrdering Facility: [facility] Address: [address] [place] [address] Performed By: #### 5 8410-2 ####[facility] LABIA [id number] [place] [address] [place] Nucleated RBC (Bld) [#/Vol] 10*3/uL Normal <0.01 [facility] Comment on above: Order Comment: Speci men Type: BLOOD SPECIMENOrdering Facility: [facility] Address: [address] [place] [address] Performed By: #### 5 8410-2 ####[facility] LABCLIA [id number] [place] [address] [place] Platelet mean volume (Bld) [Entitic vol] 12.5 fL Normal 9.0-12.7 [facility] Comment on above: Order Comment: Speci men Type: BLOOD SPECIMENOrdering Facility: [facility] Address: [address] [place] [address] Performed By: #### 5 8410-2 ####[facility] LABCLIA [id number] [place] [address] [place] Platelets (Bld) [#/Vol] 175 10*3/uL Normal 150-400 [facility] Comment on above: Order Comment: Speci men Type: BLOOD SPECIMENOrdering Facility: [facility] Address: [address] [place] [address] Performed By: #### 5 8410-2 ####[facility] LABIA [id number] [place] [address] [place] RBC (Bld) [#/Vol] 3.75 10*6/uL Low 3.90-5.20 [facility] Comment on above: Order Comment: Speci men Type: BLOOD SPECIMENOrdering Facility: [facility] Address: [address] [place] [address] Performed By: #### 5 8410-2 ####[facility] LABCLIA [id number] [place] [address] [place] WBC (Bld) [#/Vol] 2.61 10*3/uL Low 3.70-11.00 [facility] Comment on above: Order Comment: Speci men Type: BLOOD SPECIMENOrdering Facility: [facility] Address: [address] [place] [address] Performed By: #### 5 8410-2 ####[facility] LABCLIA [id number] [place] [address] [place] CONSULTon 12-07-2022 CONSULT Normal [facility] CONSULT PROGon 12-07-2022 CONSULT PROG Normal [facility] Comprehensive metabolic 2000 panelon 12-07-2022 Albumin [Mass/Vol] 3.4 g/dL Low 3.9-4.9 [facility] Comment on above: Order Comment: Speci men Type: BLOOD SPECIMENOrdering Facility: [facility] Address: [address] [place] [address] Performed By: #### 2 4323-8 ####[facility] LABCLIA [id number] [place] [address] [place] ALP [Catalytic activity/Vol] 62 U/L Normal 34-123 [facility] Comment on above: Order Comment: Speci men Type: BLOOD SPECIMENOrdering Facility: [facility] Address: [address] [place] [address] Performed By: #### 2 4323-8 ####[facility] LABCLIA [id number] [place] [address] [place] ALT [Catalytic activity/Vol] 19 U/L Normal 7-38 [facility] Comment on above: Order Comment: Speci men Type: BLOOD SPECIMENOrdering Facility: [facility] Address: [address] [place] [address] Performed By: #### 2 4323-8 ####[facility] LABCLIA [id number] [place] [address] [place] Anion gap [Moles/Vol] 9 mmol/L Normal 9-18 [facility] Comment on above: Order Comment: Speci men Type: BLOOD SPECIMENOrdering Facility: [facility] Address: [address] [place] [address] Performed By: #### 2 4323-8 ####[facility] LABCLIA [id number] [place] [address] [place] AST [Catalytic activity/Vol] 31 U/L Normal 13-35 [facility] Comment on above: Order Comment: Speci men Type: BLOOD SPECIMENOrdering Facility: [facility] Address: [address] [place] [address] Performed By: #### 2 4323-8 ####[facility] LABCLIA [id number] [place] [address] [place] Bilirubin [Mass/Vol] 0.3 mg/dL Normal 0.2-1.3 [facility] Comment on above: Order Comment: Speci men Type: BLOOD SPECIMENOrdering Facility: [facility] Address: [address] [place] [address] Performed By: #### 2 4323-8 ####[facility] LABCLIA [id number] [place] [address] [place] Calcium [Mass/Vol] 8.6 mg/dL Normal 8.5-10.2 [facility] Comment on above: Order Comment: Speci men Type: BLOOD SPECIMENOrdering Facility: [facility] Address: [address] [place] [address] Performed By: #### 2 4323-8 ####[facility] LABCLIA [id number] [place] [address] [place] Chloride [Moles/Vol] 108 mmol/L High 97-105 [facility] Comment on above: Order Comment: Speci men Type: BLOOD SPECIMENOrdering Facility: [facility] Address: [address] [place] [address] Performed By: #### 2 4323-8 ####[facility] LABCLIA [id number] [place] [address] [place] CO2 [Moles/Vol] 22 mmol/L Normal 22-30 [facility] Comment on above: Order Comment: Speci men Type: BLOOD SPECIMENOrdering Facility: [facility] Address: [address] [place] [address] Performed By: #### 2 4323-8 ####[facility] LABIA [id number] [place] [id number] [place] Creatinine [Mass/Vol] 0.85 mg/dL Normal 0.58-0.96 [facility] Comment on above: Order Comment: Geraldo marrero Type: BLOOD SPECIMENOrdering Facility: [facility] Address: [address] [place] [address] Performed By: #### 2 4323-8 ####[facility] LABIA [id number] [place] [address] [place] Creatinine and Glomerular filtration rate.predicted panel (S/P/Bld) 93 mL/min/1.73m??? Normal >=60 [facility] Comment on above: Order Comment: Geraldo marrero Type: BLOOD SPECIMENOrdering Facility: [facility] Address: [address] [place] [address] Result Comment: Jessica mated Glomerular Filtration Rate [...] actual GFR. Performed By: #### 2 4323-8 ####[facility] LABIA [id number] [place] [address] [place] Glucose [Mass/Vol] 80 mg/dL Normal 74-99 [facility] Comment on above: Order Comment: Geraldo marrero Type: BLOOD SPECIMENOrdering Facility: [facility] Address: [address] [place] [address] Result Comment: The [place] Diabetes Association (ADA) provides guidance for cutoff [...] Standards of Medical Care in Diabetes 2016, [place] Diabetes Association. Diabetes Care. 2016.39(Suppl 1). Performed By: #### 2 4323-8 ####[facility] LABCLIA [id number] [place] [address] [place] Potassium [Moles/Vol] 3.7 mmol/L Normal 3.7-5.1 [facility] Comment on above: Order Comment: Speci men Type: BLOOD SPECIMENOrdering Facility: [facility] Address: [address] [place] [address] Performed By: #### 2 4323-8 ####[facility] LABCLIA [id number] [place] [address] [place] Protein [Mass/Vol] 5.5 g/dL Low 6.3-8.0 [facility] Comment on above: Order Comment: Speci men Type: BLOOD SPECIMENOrdering Facility: [facility] Address: [address] [place] [address] Performed By: #### 2 4323-8 ####[facility] LABCLIA [id number] [place] [address] [place] Sodium [Moles/Vol] 139 mmol/L Normal 136-144 [facility] Comment on above: Order Comment: Speci men Type: BLOOD SPECIMENOrdering Facility: [facility] Address: [address] [place] [address] Performed By: #### 2 4323-8 ####[facility] LABCLIA [id number] [place] [address] [place] Urea nitrogen [Mass/Vol] 12 mg/dL Normal 7-21 [facility] Comment on above: Order Comment: Speci men Type: BLOOD SPECIMENOrdering Facility: [facility] Address: [address] [place] [address] Performed By: #### 2 4323-8 ####[facility] LABCLIA [id number] [place] [address] [place] NURSING PROGon 12-07-2022 NURSING PROG Normal [facility] XR CHEST 1V PORT POST PICC - NBon 12-07-2022 XR CHEST 1V PORT POST PICC -NB Normal [facility] CASE MGT INIT ASSESon 2022 CASE MGT INIT ASSES Normal [facility] CBC W Auto Differential pane l (Bld)on 12-06-2022 Basophils (Bld) [#/Vol] 10*3/uL Normal <0.11 [facility] Comment on above: Order Comment: Speci men Type: BLOOD SPECIMENOrdering Facility: [facility] Address: [address] [place] [address] Performed By: #### 5 7021-8 ####[facility] LABCLIA [id number] [place] [address] [place] Basophils/100 WBC (Bld) 0.7 % Normal [facility] Comment on above: Order Comment: Speci men Type: BLOOD SPECIMENOrdering Facility: [facility] Address: [address] [place] [address] Performed By: #### 5 7021-8 ####[facility] LABCLIA [id number] [place] [address] [place] Differential cell count method Nom (Bld) Auto Normal [facility] Comment on above: Order Comment: Speci men Type: BLOOD SPECIMENOrdering Facility: [facility] Address: [address] [place] [address] Performed By: #### 5 7021-8 ####[facility] LABCLIA [id number] [place] [address] [place] Eosinophils (Bld) [#/Vol] 0.09 10*3/uL Normal <0.46 [facility] Comment on above: Order Comment: Speci men Type: BLOOD SPECIMENOrdering Facility: [facility] Address: [address] [place] [address] Performed By: #### 5 7021-8 ####[facility] LABCLIA [id number] [place] [address] [place] Eosinophils/100 WBC (Bld) 2.9 % Normal [facility] Comment on above: Order Comment: Speci men Type: BLOOD SPECIMENOrdering Facility: [facility] Address: [address] [place] [address] Performed By: #### 5 7021-8 ####[facility] LABCLIA [id number] [place] [address] [place] Erythrocyte distribution width (RBC) [Ratio] 13.2 % Normal 11.5-15.0 [facility] Comment on above: Order Comment: Speci men Type: BLOOD SPECIMENOrdering Facility: [facility] Address: [address] [place] [address] Performed By: #### 5 7021-8 ####[facility] LABCLIA [id number] [place] [address] [place] Hematocrit (Bld) [Volume fraction] 33.7 % Low 36.0-46.0 [facility] Comment on above: Order Comment: Speci men Type: BLOOD SPECIMENOrdering Facility: [facility] Address: [address] [place] [address] Performed By: #### 5 7021-8 ####[facility] LABCLIA [id number] [place] [address] [place] Hemoglobin (Bld) [Mass/Vol] 11.6 g/dL Normal 11.5-15.5 [facility] Comment on above: Order Comment: Speci men Type: BLOOD SPECIMENOrdering Facility: [facility] Address: [address] [place] [address] Performed By: #### 5 7021-8 ####[facility] LABCLIA [id number] [place] [address] [place] Immature granulocytes (Bld) [#/Vol] 10*3/uL Normal <0.10 [facility] Comment on above: Order Comment: Speci men Type: BLOOD SPECIMENOrdering Facility: [facility] Address: [address] [place] [address] Performed By: #### 5 7021-8 ####[facility] LABCLIA [id number] [place] [address] [place] Immature granulocytes/100 WBC (Bld) 0.3 % Normal [facility] Comment on above: Order Comment: Speci men Type: BLOOD SPECIMENOrdering Facility: [facility] Address: [address] [place] [address] Performed By: #### 5 7021-8 ####[facility] LABCLIA [id number] [place] [address] [place] Lymphocytes (Bld) [#/Vol] 1.31 10*3/uL Normal 1.00-4.00 [facility] Comment on above: Order Comment: Speci men Type: BLOOD SPECIMENOrdering Facility: [facility] Address: [address] [place] [address] Performed By: #### 5 7021-8 ####[facility] LABCLIA [id number] [place] [address] [place] Lymphocytes/100 WBC (Bld) 42.8 % Normal [facility] Comment on above: Order Comment: Speci men Type: BLOOD SPECIMENOrdering Facility: [facility] Address: [address] [place] [address] Performed By: #### 5 7021-8 ####[facility] LABCLIA [id number] [place] [address] [place] MCH (RBC) [Entitic mass] 30.8 pg Normal 26.0-34.0 [facility] Comment on above: Order Comment: Speci men Type: BLOOD SPECIMENOrdering Facility: [facility] Address: [address] [place] [address] Performed By: #### 5 7021-8 ####[facility] LABCLIA [id number] [place] [address] [place] MCHC (RBC) [Mass/Vol] 34.4 g/dL Normal 30.5-36.0 [facility] Comment on above: Order Comment: Speci men Type: BLOOD SPECIMENOrdering Facility: [facility] Address: [address] [place] [address] Performed By: #### 5 7021-8 ####[facility] LABCLIA [id number] [place] [address] [place] MCV (RBC) [Entitic vol] 89.4 fL Normal 80.0-100.0 [facility] Comment on above: Order Comment: Speci men Type: BLOOD SPECIMENOrdering Facility: [facility] Address: [address] [place] [address] Performed By: #### 5 7021-8 ####[facility] LABCLIA [id number] [place] [address] [place] Monocytes (Bld) [#/Vol] 0.24 10*3/uL Normal <0.87 [facility] Comment on above: Order Comment: Speci men Type: BLOOD SPECIMENOrdering Facility: [facility] Address: [address] [place] [address] Performed By: #### 5 7021-8 ####[facility] LABCLIA [id number] [place] [address] [place] Monocytes/100 WBC (Bld) 7.8 % Normal [facility] Comment on above: Order Comment: Speci men Type: BLOOD SPECIMENOrdering Facility: [facility] Address: [address] [place] [address] Performed By: #### 5 7021-8 ####[facility] LABCLIA [id number] [place] [address] [place] Neutrophils (Bld) [#/Vol] 1.39 10*3/uL Low 1.45-7.50 [facility] Comment on above: Order Comment: Speci men Type: BLOOD SPECIMENOrdering Facility: [facility] Address: [address] [place] [address] Performed By: #### 5 7021-8 ####[facility] LABCLIA [id number] [place] [address] [place] Neutrophils/100 WBC (Bld) 45.5 % Normal [facility] Comment on above: Order Comment: Speci men Type: BLOOD SPECIMENOrdering Facility: [facility] Address: [address] [place] [address] Performed By: #### 5 7021-8 ####[facility] LABCLIA [id number] [place] [address] [place] Nucleated RBC (Bld) [#/Vol] 10*3/uL Normal <0.01 [facility] Comment on above: Order Comment: Speci men Type: BLOOD SPECIMENOrdering Facility: [facility] Address: [address] [place] [address] Performed By: #### 5 7021-8 ####[facility] LABCLIA [id number] [place] [address] [place] Nucleated RBC/100 WBC (Bld) [Ratio] 0.0 /100 WBC Normal [facility] Comment on above: Order Comment: Speci men Type: BLOOD SPECIMENOrdering Facility: [facility] Address: [address] [place] [address] Performed By: #### 5 7021-8 ####[facility] LABCLIA [id number] [place] [address] [place] Platelet mean volume (Bld) [Entitic vol] 11.9 fL Normal 9.0-12.7 [facility] Comment on above: Order Comment: Speci men Type: BLOOD SPECIMENOrdering Facility: [facility] Address: [address] [place] [address] Performed By: #### 5 7021-8 ####[facility] LABIA [id number] [place] [address] [place] Platelets (Bld) [#/Vol] 163 10*3/uL Normal 150-400 [facility] Comment on above: Order Comment: Speci men Type: BLOOD SPECIMENOrdering Facility: [facility] Address: [address] [place] [address] Performed By: #### 5 7021-8 ####[facility] LABIA [id number] [place] [address] [place] RBC (Bld) [#/Vol] 3.77 10*6/uL Low 3.90-5.20 [facility] Comment on above: Order Comment: Speci men Type: BLOOD SPECIMENOrdering Facility: [facility] Address: [address] [place] [address] Performed By: #### 5 7021-8 ####[facility] LABIA [id number] [place] [address] [place] WBC (Bld) [#/Vol] 3.06 10*3/uL Low 3.70-11.00 [facility] Comment on above: Order Comment: Speci men Type: BLOOD SPECIMENOrdering Facility: [facility] Address: [address] [place] [address] Performed By: #### 5 7021-8 ####[facility] LABIA [id number] [place] [address] [place] CTA ABD/PELV W IVCONon 12-06 CTA ABD/PELV W IVCON Normal [facility] Comprehensive metabolic 2000 panelon 12-06-2022 Albumin [Mass/Vol] 3.6 g/dL Low 3.9-4.9 [facility] Comment on above: Order Comment: Speci men Type: BLOOD SPECIMENOrdering Facility: [facility] Address: [address] [place] [address] Performed By: #### 2 4323-8, 3040-3, 2776-02, ####[facility] LABCLIA [id number] [place] [address] [place] ALP [Catalytic activity/Vol] 61 U/L Normal 34-123 [facility] Comment on above: Order Comment: Speci men Type: BLOOD SPECIMENOrdering Facility: [facility] Address: [address] [place] [address] Performed By: #### 2 4323-8, 3040-3, 2776-02, ####[facility] LABCLIA [id number] [place] [address] [place] ALT [Catalytic activity/Vol] 16 U/L Normal 7-38 [facility] Comment on above: Order Comment: Speci men Type: BLOOD SPECIMENOrdering Facility: [facility] Address: [address] [place] [address] Performed By: #### 2 4323-8, 3040-3, 2776-02, ####[facility] LABIA [id number] [place] [address] [place] Anion gap [Moles/Vol] 10 mmol/L Normal 9-18 [facility] Comment on above: Order Comment: Speci men Type: BLOOD SPECIMENOrdering Facility: [facility] Address: [address] [place] [address] Performed By: #### 2 4323-8, 3040-3, 2776-02, ####[facility] LABCLIA [id number] [place] [address] [place] AST [Catalytic activity/Vol] 29 U/L Normal 13-35 [facility] Comment on above: Order Comment: Speci men Type: BLOOD SPECIMENOrdering Facility: [facility] Address: [address] [id number] Performed By: #### 2 4323-8, 3040-3, 2777-1, 41081-1 ####[facility] LABCLIA [id number] [address] [address] [place] Bilirubin [Mass/Vol] 0.2 mg/dL Normal 0.2-1.3 [facility] Comment on above: Order Comment: Speci men Type: BLOOD SPECIMENOrdering Facility: [facility] Address: [address] [id number] Performed By: #### 2 4323-8, 3040-3, 2777-1, ####[facility] LABCLIA [id number] [place] [address] [place] Calcium [Mass/Vol] 8.2 mg/dL Low 8.5-10.2 [facility] Comment on above: Order Comment: Speci men Type: BLOOD SPECIMENOrdering Facility: [facility] Address: [address] [id number] Performed By: #### 2 4323-8, 3040-3, 277-1, ####[facility] LABCLIA [id number] [place] [address] [place] Chloride [Moles/Vol] 109 mmol/L High 97-105 [facility] Comment on above: Order Comment: Speci men Type: BLOOD SPECIMENOrdering Facility: [facility] Address: [address] [id number] Performed By: #### 2 4323-8, 3040-3, 2777-1, ####[facility] LABCLIA [id number] [place] [id number] [place] CO2 [Moles/Vol] 21 mmol/L Low 22-30 [facility] Comment on above: Order Comment: Speci men Type: BLOOD SPECIMENOrdering Facility: [facility] Address: [address] [place] [address] Performed By: #### 2 4323-8, 3040-3, 2777-1, ####[facility] [id number] [place] [address] [place] Creatinine [Mass/Vol] 0.66 mg/dL Normal 0.58-0.96 [facility] Comment on above: Order Comment: Geraldo marrero Type: BLOOD SPECIMENOrdering Facility: [facility] Address: [address] [place] [address] Performed By: #### 2 4323-8, 3040-3, 277-1, ####[facility] [id number] [address] [place] Creatinine and Glomerular filtration rate.predicted panel (S/P/Bld) 119 mL/min/1.73m??? Normal >=60 [facility] Comment on above: Order Comment: Geraldo marrero Type: BLOOD SPECIMENOrdering Facility: [facility] Address: [address] [place] [address] Result Comment: Jessica mated Glomerular Filtration Rate [...] GFR. Performed By: #### 2 4323-8, 3040-3, 2776-02, ####[facility] [id number] [place] [id number] [place] Glucose [Mass/Vol] 83 mg/dL Normal 74-99 [facility] Comment on above: Order Comment: Geraldo marrero Type: BLOOD SPECIMENOrdering Facility: [facility] Address: [address] [place] [address] Result Comment: The [place] Diabetes Association (ADA) provides guidance for cutoff [...] Standards of Medical Care in Diabetes 2016, [place] Diabetes Association. Diabetes Care. 2016.39(Suppl 1). Performed By: #### 2 4323-8, 3040-3, 2777-1, 34480-2 ####[facility] [id number] [place] [address] [place] Potassium [Moles/Vol] 3.7 mmol/L Normal 3.7-5.1 [facility] Comment on above: Order Comment: Speci men Type: BLOOD SPECIMENOrdering Facility: [facility] Address: [address] [place] [address] Performed By: #### 2 4323-8, 3040-3, 2777-, ####[facility] [id number] [place] [address] [place] Protein [Mass/Vol] 5.9 g/dL Low 6.3-8.0 [facility] Comment on above: Order Comment: Speci men Type: BLOOD SPECIMENOrdering Facility: [facility] Address: [address] [place] [address] Performed By: #### 2 4323-8, 3040-3, 2777-, ####[facility] [id number] [place] [address] [place] Sodium [Moles/Vol] 140 mmol/L Normal 136-144 [facility] Comment on above: Order Comment: Speci men Type: BLOOD SPECIMENOrdering Facility: [facility] Address: [address] [place] [address] Performed By: #### 2 4323-8, 3040-3, 2776-1, ####[facility] LABCLIA [id number] [place] [address] [place] Urea nitrogen [Mass/Vol] 13 mg/dL Normal 7-21 [facility] Comment on above: Order Comment: Speci men Type: BLOOD SPECIMENOrdering Facility: [facility] Address: [address] [place] [address] Performed By: #### 2 4323-8, 3040-3, 2776-, ####[facility] LABCLIA [id number] [address] [place] ED NOTEon 12-06-2022 ED NOTE HNO ID: [id number] Author: Michelle Regalado RN Service: Emergency Medicine Author Type: Registered Nurse Type: ED Notes Filed: 12/06/2022 10:09 PM Note Text: Report called to DEE Argueta. Normal [facility] ED NOTE HNO ID: [id number] Author: Maia Mosher RN Service: Emergency Medicine Author Type: Registered Nurse Type: ED Notes Filed: 12/06/2022 3:19 PM Note Text: Nurse handoff given to DEE Carreon Normal [facility] ED PROV NOTEon 12-06-2022 ED PROV NOTE Normal [facility] HISTORY PHYSICALon 3 HISTORY PHYSICAL Normal [facility] Lipase SerPl-cCncon 12-07-19 23 Lipase [Catalytic activity/Vol] 40 U/L Normal 16-61 [facility] Comment on above: Order Comment: Speci men Type: BLOOD SPECIMENOrdering Facility: [facility] Address: [address] [id number] Performed By: #### 2 4323-8, 3040-3, 2776-1, ####[facility] LABCLIA [id number] [id number] [address] [place] Magnesium SerPl-mCncon 12-06 Magnesium [Mass/Vol] 2.0 mg/dL Normal 1.7-2.3 [facility] Comment on above: Order Comment: Speci men Type: BLOOD SPECIMENOrdering Facility: [facility] Address: [address] [place] [address] Performed By: #### 2 4323-8, 3040-3, 2777-1, 96173-8 ####[facility] LABCLIA [id number] [place] [address] [place] Phosphate SerPl-mCncon 12-06 Phosphate [Mass/Vol] 2.7 mg/dL Normal 2.7-4.8 [facility] Comment on above: Order Comment: Speci men Type: BLOOD SPECIMENOrdering Facility: [facility] Address: [address] [place] [address] Performed By: #### 2 4323-8, 3040-3, 2777-, ####[facility] LABIA [id number] [place] [address] [place] Urinalysis complete panel (U )on 12-06-2022 Bacteria LM.HPF (Urine sed) [#/Area] Negative Normal Negative [facility] Comment on above: Order Comment: Speci men Type: URINE SPECIMENOrdering Facility: [facility] Address: [address] [place] [address] Performed By: #### 2 4356-8 ####[facility] LABCLIA [id number] [place] [address] [place] Bilirubin Ql (U) Negative Normal Negative [facility] Comment on above: Order Comment: Speci men Type: URINE SPECIMENOrdering Facility: [facility] Address: [address] [place] [address] Performed By: #### 2 4356-8 ####[facility] LABCLIA [id number] [id number] [address] [place] Clarity (Unsp spec) Clear Normal Clear [facility] Comment on above: Order Comment: Speci men Type: URINE SPECIMENOrdering Facility: [facility] Address: [address] [place] [address] Performed By: #### 2 4356-8 ####[facility] LABCLIA [id number] [place] [address] [place] Color (U) Yellow Normal Yellow [facility] Comment on above: Order Comment: Speci men Type: URINE SPECIMENOrdering Facility: [facility] Address: [address] [place] [address] Performed By: #### 2 4356-8 ####[facility] LABCLIA [id number] [place] [address] [place] Epithelial cells LM.HPF (Urine sed) [#/Area] Moderate Normal [facility] Comment on above: Order Comment: Speci men Type: URINE SPECIMENOrdering Facility: [facility] Address: [address] [place] [address] Performed By: #### 2 4356-8 ####[facility] LABCLIA [id number] [place] [address] [place] Glucose Test strip (U) [Mass/Vol] Negative Normal Negative [facility] Comment on above: Order Comment: Speci men Type: URINE SPECIMENOrdering Facility: [facility] Address: [address] [place] [address] Performed By: #### 2 4356-8 ####[facility] LABCLIA [id number] [place] [address] [place] Hemoglobin Ql (U) Negative Normal Negative [facility] Comment on above: Order Comment: Speci men Type: URINE SPECIMENOrdering Facility: [facility] Address: [address] [place] [address] Performed By: #### 2 4356-8 ####[facility] LABCLIA [id number] [place] [address] [place] Hyaline casts (Urine sed) [#/Area] 0 /[LPF] Normal 0 /LPF [facility] Comment on above: Order Comment: Speci men Type: URINE SPECIMENOrdering Facility: [facility] Address: [address] [place] [address] Performed By: #### 2 4356-8 ####[facility] LABCLIA [id number] [place] [address] [place] Ketones Ql (U) Negative Normal Negative [facility] Comment on above: Order Comment: Speci men Type: URINE SPECIMENOrdering Facility: [facility] Address: [address] [place] [address] Performed By: #### 2 4356-8 ####[facility] LABCLIA [id number] [place] [address] [place] Leukocyte esterase Test strip Ql (U) Negative Normal Negative [facility] Comment on above: Order Comment: Speci men Type: URINE SPECIMENOrdering Facility: [facility] Address: [address] [place] [address] Performed By: #### 2 4356-8 ####[facility] LABCLIA [id number] [place] [address] [place] Nitrite Ql (U) Negative Normal Negative [facility] Comment on above: Order Comment: Speci men Type: URINE SPECIMENOrdering Facility: [facility] Address: [address] [place] [address] Performed By: #### 2 4356-8 ####[facility] LABCLIA [id number] [place] [address] [place] pH (U) 7.0 [pH] Normal <8.5 [facility] Comment on above: Order Comment: Speci men Type: URINE SPECIMENOrdering Facility: [facility] Address: [address] [place] [address] Performed By: #### 2 4356-8 ####[facility] LABCLIA [id number] [place] [address] [place] Protein (U) [Mass/Vol] Negative Normal Negative [facility] Comment on above: Order Comment: Speci men Type: URINE SPECIMENOrdering Facility: [facility] Address: [address] [place] [address] Performed By: #### 2 4356-8 ####[facility] LABIA [id number] [place] [address] [place] RBC LM.HPF (Urine sed) [#/Area] 0-2 /HPF Normal 0-2 /HPF [facility] Comment on above: Order Comment: Speci men Type: URINE SPECIMENOrdering Facility: [facility] Address: [address] [place] [address] Performed By: #### 2 4356-8 ####[facility] LABIA [id number] [place] [address] [place] Specific gravity (U) [Rel density] 1.014 Normal 1.005-1.030 [facility] Comment on above: Order Comment: Speci men Type: URINE SPECIMENOrdering Facility: [facility] Address: [address] [place] [address] Performed By: #### 2 4356-8 ####[facility] LABIA [id number] [place] [address] [place] Urobilinogen Ql (U) 0.2 EU/dL Normal 0.2-1.0 EU/dL [facility] Comment on above: Order Comment: Speci men Type: URINE SPECIMENOrdering Facility: [facility] Address: [address] [place] [address] Performed By: #### 2 4356-8 ####[facility] LABIA [id number] [place] [address] [place] WBC LM.HPF (Urine sed) [#/Area] 0-5 /HPF Normal 0-5 /HPF [facility] Comment on above: Order Comment: Speci men Type: URINE SPECIMENOrdering Facility: [facility] Address: [address] [place] [address] Performed By: #### 2 4356-8 ####[facility] LABCLIA [id number] [id number] [address] [place] CNOVon 12-04-2022 CNOV Normal [facility] HISTORY PHYSICALon HISTORY PHYSICAL Normal [facility] Basic Metabolic Panelon 11-15 Anion gap [Moles/Vol] 10 mmol/L Normal 9-15 [facility] Comment on above: Performed By: #### L IPAS #### [facility] [address] [place] [address] Calcium [Mass/Vol] 8.4 mg/dL Low 8.5-9.9 [facility] Comment on above: Performed By: #### L IPAS #### [facility] [address] [place] [address] Chloride [Moles/Vol] 108 mmol/L Critically high 95-107 [facility] Comment on above: Performed By: #### L IPAS #### [facility] [address] [place] [address] CO2 [Moles/Vol] 23 mmol/L Normal 20-31 [facility] Comment on above: Performed By: #### L IPAS #### [facility] [address] [place] [address] Creatinine [Mass/Vol] 0.64 mg/dL Normal 0.50-0.90 [facility] Comment on above: Performed By: #### L IPAS #### [facility] [address] [place] [address] GFR >60.0 Normal >60 [facility] [...] IPAS #### [facility] [address] [place] [address] Glucose [Mass/Vol] 86 mg/dL Normal 70-99 [facility] Comment on above: Performed By: #### L IPAS #### [facility] [address] [place] [address] Potassium [Moles/Vol] 3.9 mmol/L Normal 3.4-4.9 [facility] Comment on above: Performed By: #### L IPAS #### [facility] [address] [place] [address] Sodium [Moles/Vol] 141 mmol/L Normal 135-144 [facility] Comment on above: Performed By: #### L IPAS #### [facility] [address] [place] [address] Urea nitrogen [Mass/Vol] 14 mg/dL Normal 6-20 [facility] Comment on above: Performed By: #### L IPAS #### [facility] [address] [place] [address] CBC With Platelet and Differ entialon 12-03-2022 Basophils (Bld) [#/Vol] 0.0 10*3/uL Normal 0.0-0.2 [facility] Comment on above: Performed By: #### C BCWD #### [facility] [address] [place] [address] Basophils/100 WBC (Bld) 0.9 % Normal [facility] Comment on above: Performed By: #### C BCWD #### [facility] [address] [place] [address] Eosinophils (Bld) [#/Vol] 0.2 10*3/uL Normal 0.0-0.7 [facility] Comment on above: Performed By: #### C BCWD #### [facility] [address] [place] [address] Eosinophils/100 WBC (Bld) 5.2 % Normal [facility] Comment on above: Performed By: #### C BCWD #### [facility] [address] [place] [address] Erythrocyte distribution width (RBC) [Ratio] 13.2 % Normal 11.5-14.5 [facility] Comment on above: Performed By: #### C BCWD #### [facility] [address] [place] [address] Hematocrit (Bld) [Volume fraction] 35.9 % Low 37.0-47.0 [facility] Comment on above: Performed By: #### C BCWD #### [facility] [address] [place] [address] Hemoglobin (Bld) [Mass/Vol] 12.3 g/dL Normal 12.0-16.0 [facility] Comment on above: Performed By: #### C BCWD #### [facility] [address] [place] [address] Lymphocytes (Bld) [#/Vol] 1.3 10*3/uL Normal 1.0-4.8 [facility] Comment on above: Performed By: #### C BCWD #### [facility] [address] [place] [address] Lymphocytes/100 WBC (Bld) 38.2 % Normal [facility] Comment on above: Performed By: #### C BCWD #### [facility] [address] [place] [address] MCH (RBC) [Entitic mass] 30.8 pg Normal 27.0-31.3 [facility] Comment on above: Performed By: #### C BCWD #### [facility] [address] [place] [address] MCHC 34.3 % Normal 33.0-37.0 [facility] Comment on above: Performed By: #### C BCWD #### [facility] [address] [place] [address] MCV (RBC) [Entitic vol] 89.8 fL Normal 79.4-94.8 [facility] Comment on above: Performed By: #### C BCWD #### [facility] [address] [place] [address] Monocytes (Bld) [#/Vol] 0.4 10*3/uL Normal 0.2-0.8 [facility] Comment on above: Performed By: #### C BCWD #### [facility] [address] [place] [address] Monocytes/100 WBC (Bld) 10.9 % Normal [facility] Comment on above: Performed By: #### C BCWD #### [facility] [address] [place] [address] Neutrophils (Bld) [#/Vol] 1.5 10*3/uL Normal 1.4-6.5 [facility] Comment on above: Performed By: #### C BCWD #### [facility] [address] [place] [address] Neutrophils/100 WBC (Bld) 44.5 % Normal [facility] Comment on above: Performed By: #### C BCWD #### [facility] [address] [place] [address] Platelets (Bld) [#/Vol] 204 10*3/uL Normal 130-400 [facility] Comment on above: Performed By: #### C BCWD #### [facility] [address] [place] [address] RBC (Bld) [#/Vol] 4.00 10*6/uL Low 4.20-5.40 [facility] Comment on above: Performed By: #### C BCWD #### [facility] [address] [place] [address] WBC (Bld) [#/Vol] 3.3 10*3/uL Low 4.8-10.8 [facility] Comment on above: Performed By: #### C BCWD #### [facility] [address] [place] [address] Basophils (Bld) [#/Vol] 0.0 10*3/uL Normal 0.0-0.2 [facility] Comment on above: Performed By: #### P GLU #### [facility] [address] [place] [address] Basophils/100 WBC (Bld) 0.7 % Normal [facility] Comment on above: Performed By: #### P GLU #### [facility] [address] [place] [address] Eosinophils (Bld) [#/Vol] 0.2 10*3/uL Normal 0.0-0.7 [facility] Comment on above: Performed By: #### P GLU #### [facility] [address] [place] [address] Eosinophils/100 WBC (Bld) 5.9 % Normal [facility] Comment on above: Performed By: #### P GLU #### [facility] [address] [place] [address] Erythrocyte distribution width (RBC) [Ratio] 13.5 % Normal 11.5-14.5 [facility] Comment on above: Performed By: #### P GLU #### [facility] [address] [place] [address] Hematocrit (Bld) [Volume fraction] 33.2 % Low 37.0-47.0 [facility] Comment on above: Performed By: #### P GLU #### [facility] [address] [place] [address] Hemoglobin (Bld) [Mass/Vol] 11.8 g/dL Low 12.0-16.0 [facility] Comment on above: Performed By: #### P GLU #### [facility] [address] [place] [address] Lymphocytes (Bld) [#/Vol] 1.1 10*3/uL Normal 1.0-4.8 [facility] Comment on above: Performed By: #### P GLU #### [facility] [address] [place] [address] Lymphocytes/100 WBC (Bld) 39.5 % Normal [facility] Comment on above: Performed By: #### P GLU #### [facility] [address] [place] [address] MCH (RBC) [Entitic mass] 34.0 pg Critically high 27.0-31.3 [facility] Comment on above: Performed By: #### P GLU #### [facility] [address] [place] [address] MCHC 35.5 % Normal 33.0-37.0 [facility] Comment on above: Performed By: #### P GLU #### [facility] [address] [place] [address] MCV (RBC) [Entitic vol] 95.7 fL Critically high 79.4-94.8 [facility] Comment on above: Performed By: #### P GLU #### [facility] [address] [place] [address] Monocytes (Bld) [#/Vol] 0.3 10*3/uL Normal 0.2-0.8 [facility] Comment on above: Performed By: #### P GLU #### [facility] [address] [place] [address] Monocytes/100 WBC (Bld) 9.1 % Normal [facility] Comment on above: Performed By: #### P GLU #### [facility] [address] [place] [address] Neutrophils (Bld) [#/Vol] 1.3 10*3/uL Low 1.4-6.5 [facility] Comment on above: Performed By: #### P GLU #### [facility] [address] [place] [address] Neutrophils/100 WBC (Bld) 44.5 % Normal [facility] Comment on above: Performed By: #### P GLU #### [facility] [address] [place] [address] Platelets (Bld) [#/Vol] 186 10*3/uL Normal 130-400 [facility] Comment on above: Performed By: #### P GLU #### [facility] [address] [place] [address] RBC (Bld) [#/Vol] 3.47 10*6/uL Low 4.20-5.40 [facility] Comment on above: Performed By: #### P GLU #### [facility] [address] [place] [address] WBC (Bld) [#/Vol] 2.9 10*3/uL Low 4.8-10.8 [facility] Comment on above: Performed By: #### P GLU #### [facility] [address] [place] [address] CNPNon 12-03-2022 CNPN Normal [facility] Magnesiumon 12-03-2022 Magnesium [Mass/Vol] 1.8 mg/dL Normal 1.7-2.4 [facility] Comment on above: Performed By: #### L IPAS #### [facility] [address] [place] [address] POCT Glucoseon 12-03-2022 Glucose [Mass/Vol] 90 mg/dL Normal 70-99 [facility] Comment on above: Performed By: #### P GLU #### [facility] [address] [place] [address] POC Performed on ACCU-CHEK Normal [facility] Comment on above: Performed By: #### P GLU #### [facility] [address] [place] [address] Glucose [Mass/Vol] 101 mg/dL Critically high 70-99 M [facility] Comment on above: Performed By: #### L IPAS #### [facility] [address] [place] [address] POC Performed on ACCU-CHEK Normal [facility] Comment on above: Performed By: #### L IPAS #### [facility] [address] [place] [address] Phosphoruson 12-03-2022 Phosphate [Mass/Vol] 3.6 mg/dL Normal 2.3-4.8 [facility] Comment on above: Performed By: #### L IPAS #### [facility] [address] [place] [address] Basic Metabolic Panelon 11-15 Anion gap [Moles/Vol] 6 mmol/L Low 9-15 [facility] Comment on above: Performed By: #### C BCWD #### [facility] [address] [place] [address] Calcium [Mass/Vol] 8.4 mg/dL Low 8.5-9.9 [facility] Comment on above: Performed By: #### C BCWD #### [facility] [address] [place] [address] Chloride [Moles/Vol] 107 mmol/L Normal 95-107 [facility] Comment on above: Performed By: #### C BCWD #### [facility] [address] [place] [address] CO2 [Moles/Vol] 25 mmol/L Normal 20-31 [facility] Comment on above: Performed By: #### C BCWD #### [facility] [address] [place] [address] Creatinine [Mass/Vol] 0.57 mg/dL Normal 0.50-0.90 [facility] Comment on above: Performed By: #### C BCWD #### [facility] [address] [place] [address] GFR >60.0 Normal >60 [facility] Comment on above: Result Comment: Adán kennyelroy [...] [facility] [address] [place] [address] Glucose [Mass/Vol] 104 mg/dL Critically high 70-99 M [facility] Comment on above: Performed By: #### C BCWD #### [facility] [address] [place] [address] Potassium [Moles/Vol] 4.0 mmol/L Normal 3.4-4.9 [facility] Comment on above: Performed By: #### C BCWD #### [facility] [address] [place] [address] Sodium [Moles/Vol] 138 mmol/L Normal 135-144 [facility] Comment on above: Performed By: #### C BCWD #### [facility] [address] [place] [address] Urea nitrogen [Mass/Vol] 12 mg/dL Normal 6-20 [facility] Comment on above: Performed By: #### C BCWD #### [facility] [address] [place] [address] CBC With Platelet and Differ entialon 12-02-2022 Anisocytosis Ql (Bld) 1+ Normal [facility] Comment on above: Performed By: #### C BCWD #### [facility] [address] [place] [address] Basophils (Bld) [#/Vol] 0.0 10*3/uL Normal 0.0-0.2 [facility] Comment on above: Performed By: #### C BCWD #### [facility] [address] [place] [address] Basophils/100 WBC (Bld) 1.0 % Normal [facility] Comment on above: Performed By: #### C BCWD #### [facility] [address] [place] [address] Eosinophils (Bld) [#/Vol] 0.2 10*3/uL Normal 0.0-0.7 [facility] Comment on above: Performed By: #### C BCWD #### [facility] [address] [place] [address] Eosinophils/100 WBC (Bld) 9.0 % Normal [facility] Comment on above: Performed By: #### C BCWD #### [facility] [address] [place] [address] Lymphocytes (Bld) [#/Vol] 0.9 10*3/uL Low 1.0-4.8 [facility] Comment on above: Performed By: #### C BCWD #### [facility] [address] [place] [address] Lymphocytes/100 WBC (Bld) 35.0 % Normal [facility] Comment on above: Performed By: #### C BCWD #### [facility] [address] [place] [address] Monocytes (Bld) [#/Vol] 0.1 10*3/uL Low 0.2-0.8 [facility] Comment on above: Performed By: #### C BCWD #### [facility] [address] [place] [address] Monocytes/100 WBC (Bld) 4.6 % Normal [facility] Comment on above: Performed By: #### C BCWD #### [facility] [address] [place] [address] Neutrophils (Bld) [#/Vol] 1.4 10*3/uL Normal 1.4-6.5 [facility] Comment on above: Performed By: #### C BCWD #### [facility] [address] [place] [address] Neutrophils/100 WBC (Bld) 50.0 % Normal [facility] Comment on above: Performed By: #### C BCWD #### [facility] [address] [place] [address] Ovalocytes 1+ Normal [facility] Comment on above: Performed By: #### C BCWD #### [facility] [address] [place] [address] Poikilocytosis 1+ Normal [facility] Comment on above: Performed By: #### C BCWD #### [facility] [address] [place] [address] Erythrocyte distribution width (RBC) [Ratio] 13.3 % Normal 11.5-14.5 [facility] Comment on above: Performed By: #### C BCWD #### [facility] [address] [place] [address] Hematocrit (Bld) [Volume fraction] 34.0 % Low 37.0-47.0 [facility] Comment on above: Performed By: #### C BCWD #### [facility] [address] [place] [address] Hemoglobin (Bld) [Mass/Vol] 11.8 g/dL Low 12.0-16.0 [facility] Comment on above: Performed By: #### C BCWD #### [facility] [address] [place] [address] MCH (RBC) [Entitic mass] 31.3 pg Normal 27.0-31.3 [facility] Comment on above: Performed By: #### C BCWD #### [facility] [address] [place] [address] MCHC 34.7 % Normal 33.0-37.0 [facility] Comment on above: Performed By: #### C BCWD #### [facility] [address] [place] [address] MCV (RBC) [Entitic vol] 90.2 fL Normal 79.4-94.8 [facility] Comment on above: Performed By: #### C BCWD #### [facility] [address] [place] [address] Platelets (Bld) [#/Vol] 201 10*3/uL Normal 130-400 [facility] Comment on above: Performed By: #### C BCWD #### [facility] [address] [place] [address] RBC (Bld) [#/Vol] 3.77 10*6/uL Low 4.20-5.40 [facility] Comment on above: Performed By: #### C BCWD #### [facility] [address] [place] [address] WBC (Bld) [#/Vol] 2.7 10*3/uL Low 4.8-10.8 [facility] Comment on above: Performed By: #### C BCWD #### [facility] [address] [place] [address] Magnesiumon 12-02-2022 Magnesium [Mass/Vol] 1.9 mg/dL Normal 1.7-2.4 [facility] Comment on above: Performed By: #### C BCWD #### [facility] [address] [place] [address] POCT Glucoseon 12-02-2022 Glucose [Mass/Vol] 115 mg/dL Critically high 70-99 M [facility] Comment on above: Performed By: #### P GLU #### [facility] [address] [place] [address] POC Performed on ACCU-CHEK Normal [facility] Comment on above: Performed By: #### P GLU #### [facility] [address] [place] [address] Glucose [Mass/Vol] 94 mg/dL Normal 70-99 [facility] Comment on above: Performed By: #### P GLU #### [facility] [address] [place] [address] POC Performed on ACCU-CHEK Normal [facility] Comment on above: Performed By: #### P GLU #### [facility] [address] [place] [address] Glucose [Mass/Vol] 94 mg/dL Normal 70-99 [facility] Comment on above: Performed By: #### P GLU #### [facility] [address] [place] [address] POC Performed on ACCU-CHEK Normal [facility] Comment on above: Performed By: #### P GLU #### [facility] [address] [place] [address] Phosphoruson 12-02-2022 Phosphate [Mass/Vol] 3.7 mg/dL Normal 2.3-4.8 [facility] Comment on above: Performed By: #### P GLU #### [facility] [address] [place] [address] CNPNon 12-01-2022 CNPN [facility] Metabolic Pane nestor 12-01-2022 Albumin [Mass/Vol] 3.7 g/dL Normal 3.5-4.6 [facility] Comment on above: Performed By: #### C BCWD #### [facility] [address] [place] [address] ALP [Catalytic activity/Vol] 62 U/L Normal 40-130 [facility] Comment on above: Performed By: #### C BCWD #### [facility] [address] [place] [address] ALT [Catalytic activity/Vol] 16 U/L Normal 0-33 [facility] Comment on above: Performed By: #### C BCWD #### [facility] [address] [place] [address] Anion gap [Moles/Vol] 7 mmol/L Low 9-15 [facility] Comment on above: Performed By: #### C BCWD #### [facility] [address] [place] [address] AST [Catalytic activity/Vol] 30 U/L Normal 0-35 [facility] Comment on above: Performed By: #### C BCWD #### [facility] [address] [place] [address] Bilirubin [Mass/Vol] 0.3 mg/dL Normal 0.2-0.7 [facility] Comment on above: Performed By: #### C BCWD #### [facility] [address] [place] [address] Calcium [Mass/Vol] 8.3 mg/dL Low 8.5-9.9 [facility] Comment on above: Performed By: #### C BCWD #### [facility] [address] [place] [address] Chloride [Moles/Vol] 106 mmol/L Normal 95-107 [facility] Comment on above: Performed By: #### C BCWD #### [facility] [address] [place] [address] CO2 [Moles/Vol] 23 mmol/L Normal 20-31 [facility] Comment on above: Performed By: #### C BCWD #### [facility] [address] [place] [address] Creatinine [Mass/Vol] 0.66 mg/dL Normal 0.50-0.90 [facility] Comment on above: Performed By: #### C BCWD #### [facility] [address] [place] [address] GFR >60.0 Normal >60 [facility] [...] BCWD #### [facility] [address] [place] [address] Globulin (S) [Mass/Vol] 2.1 g/dL Low 2.3-3.5 [facility] Comment on above: Performed By: #### C BCWD #### [facility] [address] [place] [address] Glucose [Mass/Vol] 104 mg/dL Critically high 70-99 M [facility] Comment on above: Performed By: #### C BCWD #### [facility] [address] [place] [address] Potassium [Moles/Vol] 3.9 mmol/L Normal 3.4-4.9 [facility] Comment on above: Performed By: #### C BCWD #### [facility] [address] [place] [address] Protein [Mass/Vol] 5.8 g/dL Low 6.3-8.0 [facility] Comment on above: Performed By: #### C BCWD #### [facility] [address] [place] [address] Sodium [Moles/Vol] 136 mmol/L Normal 135-144 [facility] Comment on above: Performed By: #### C BCWD #### [facility] [address] [place] [address] Urea nitrogen [Mass/Vol] 6 mg/dL Normal 6-20 [facility] Comment on above: Performed By: #### C BCWD #### [facility] [address] [place] [address] Magnesiumon 12-01-2022 Magnesium [Mass/Vol] 2.0 mg/dL Normal 1.7-2.4 [facility] Comment on above: Performed By: #### C BCWD #### [facility] [address] [place] [address] POCT Glucoseon 12-01-2022 Glucose [Mass/Vol] 113 mg/dL Critically high 70-99 M [facility] Comment on above: Performed By: #### P GLU #### [facility] [address] [place] [address] POC Performed on ACCU-CHEK Normal [facility] Comment on above: Result Comment: Robby meneses RN or Performed By: #### P GLU #### [facility] [address] [place] [address] Phosphoruson 12-01-2022 Phosphate [Mass/Vol] 3.7 mg/dL Normal 2.3-4.8 [facility] Comment on above: Performed By: #### P GLU #### [facility] [address] [place] [address] Triglycerideson 12-01-2022 Triglyceride [Mass/Vol] 111 mg/dL Normal 0-150 [facility] Comment on above: Result Comment: ATP III Triglycerides Classification is Normal. Performed By: #### T RIG #### [facility] [address] [place] [address] Comprehensive Metabolic Pane nestor 11-30-2022 Albumin [Mass/Vol] 3.5 g/dL Normal 3.5-4.6 [facility] Comment on above: Performed By: #### C BCWD #### [facility] [address] [place] [address] ALP [Catalytic activity/Vol] 45 U/L Normal 40-130 [facility] Comment on above: Performed By: #### C BCWD #### [facility] [address] [place] [address] ALT [Catalytic activity/Vol] 15 U/L Normal 0-33 [facility] Comment on above: Result Comment: Spec imen hemolysis has exceeded the interference as defined by Kamran. Result may be affected. Suggest recollection if clinically indicated. Performed By: #### C BCWD #### [facility] [address] [place] [address] Anion gap [Moles/Vol] 6 mmol/L Low 9-15 [facility] Comment on above: Performed By: #### C BCWD #### [facility] [address] [place] [address] AST [Catalytic activity/Vol] 40 U/L Critically high 0-35 [facility] Comment on above: Result Comment: Spec imen hemolysis has exceeded the interference as defined by Kamran. Value may be falsely increased. Suggest recollection if clinically indicated. Performed By: #### C BCWD #### [facility] [address] [place] [address] Bilirubin [Mass/Vol] 0.3 mg/dL Normal 0.2-0.7 [facility] Comment on above: Performed By: #### C BCWD #### [facility] [address] [place] [address] Calcium [Mass/Vol] 8.3 mg/dL Low 8.5-9.9 [facility] Comment on above: Performed By: #### C BCWD #### [facility] [address] [place] [address] Chloride [Moles/Vol] 107 mmol/L Normal 95-107 [facility] Comment on above: Performed By: #### C BCWD #### [facility] [address] [place] [address] CO2 [Moles/Vol] 23 mmol/L Normal 20-31 [facility] Comment on above: Performed By: #### C BCWD #### [facility] [address] [place] [address] Creatinine [Mass/Vol] 0.69 mg/dL Normal 0.50-0.90 [facility] Comment on above: Performed By: #### C BCWD #### [facility] [address] [place] [address] GFR >60.0 Normal >60 [facility] Comment on above: Result Comment: Adán kennyc calculator link [email or web address] Effective Nov 17, 2021 [...] [facility] [address] [place] [address] Globulin (S) [Mass/Vol] 1.9 g/dL Low 2.3-3.5 [facility] Comment on above: Performed By: #### C BCWD #### [facility] [address] [place] [address] Glucose [Mass/Vol] 86 mg/dL Normal 70-99 [facility] Comment on above: Performed By: #### C BCWD #### [facility] [address] [place] [address] Potassium [Moles/Vol] 4.6 mmol/L Normal 3.4-4.9 [facility] Comment on above: Result Comment: Spec imen hemolysis has exceeded the interference as defined by Kamran. Value may be falsely increased. Suggest recollection if clinically indicated. Performed By: #### C BCWD #### [facility] [address] [place] [address] Protein [Mass/Vol] 5.4 g/dL Low 6.3-8.0 [facility] Comment on above: Performed By: #### C BCWD #### [facility] [address] [place] [address] Sodium [Moles/Vol] 136 mmol/L Normal 135-144 [facility] Comment on above: Performed By: #### C BCWD #### [facility] [address] [place] [address] Urea nitrogen [Mass/Vol] 4 mg/dL Low 6-20 [facility] Comment on above: Performed By: #### C BCWD #### [facility] [address] [place] [address] IR PICC WO SQ PORT/PUMP > 5 [...] caps and surgical masks. In addition, the tube cleaning operator and engineer first assistant donned sterile gowns and gloves after [...] sheath was placed over the guidewire. A 5-Kinyarwanda dual-lumen PICC was advanced through the sheath, [...] [facility] [address] [place] [address] Phosphoruson 11-30-2022 Phosphate [Mass/Vol] 3.2 mg/dL Normal 2.3-4.8 [facility] Comment on above: Performed By: #### C BCWD #### [facility] [address] [place] [address] CBC With Platelet and Differ entialon 11-29-2022 Basophils (Bld) [#/Vol] 0.0 10*3/uL Normal 0.0-0.2 [facility] Comment on above: Performed By: #### P GLU #### [facility] [address] [place] [address] Basophils/100 WBC (Bld) 0.6 % Normal [facility] Comment on above: Performed By: #### P GLU #### [facility] [address] [place] [address] Eosinophils (Bld) [#/Vol] 0.1 10*3/uL Normal 0.0-0.7 [facility] Comment on above: Performed By: #### P GLU #### [facility] [address] [place] [address] Eosinophils/100 WBC (Bld) 4.4 % Normal [facility] Comment on above: Performed By: #### P GLU #### [facility] [address] [place] [address] Erythrocyte distribution width (RBC) [Ratio] 13.6 % Normal 11.5-14.5 [facility] Comment on above: Performed By: #### P GLU #### [facility] [address] [place] [address] Hematocrit (Bld) [Volume fraction] 36.4 % Low 37.0-47.0 [facility] Comment on above: Performed By: #### P GLU #### [facility] [address] [place] [address] Hemoglobin (Bld) [Mass/Vol] 12.2 g/dL Normal 12.0-16.0 [facility] Comment on above: Performed By: #### P GLU #### [facility] [address] [place] [address] Lymphocytes (Bld) [#/Vol] 1.3 10*3/uL Normal 1.0-4.8 [facility] Comment on above: Performed By: #### P GLU #### [facility] [address] [place] [address] Lymphocytes/100 WBC (Bld) 41.0 % Normal [facility] Comment on above: Performed By: #### P GLU #### [facility] [address] [place] [address] MCH (RBC) [Entitic mass] 30.9 pg Normal 27.0-31.3 [facility] Comment on above: Performed By: #### P GLU #### [facility] [address] [place] [address] MCHC 33.5 % Normal 33.0-37.0 [facility] Comment on above: Performed By: #### P GLU #### [facility] [address] [place] [address] MCV (RBC) [Entitic vol] 92.2 fL Normal 79.4-94.8 [facility] Comment on above: Performed By: #### P GLU #### [facility] [address] [place] [address] Monocytes (Bld) [#/Vol] 0.3 10*3/uL Normal 0.2-0.8 [facility] Comment on above: Performed By: #### P GLU #### [facility] [address] [place] [address] Monocytes/100 WBC (Bld) 9.8 % Normal [facility] Comment on above: Performed By: #### P GLU #### [facility] [address] [place] [address] Neutrophils (Bld) [#/Vol] 1.4 10*3/uL Normal 1.4-6.5 [facility] Comment on above: Performed By: #### P GLU #### [facility] [address] [place] [address] Neutrophils/100 WBC (Bld) 44.2 % Normal [facility] Comment on above: Performed By: #### P GLU #### [facility] [address] [place] [address] Platelets (Bld) [#/Vol] 242 10*3/uL Normal 130-400 [facility] Comment on above: Performed By: #### P GLU #### [facility] [address] [place] [address] RBC (Bld) [#/Vol] 3.95 10*6/uL Low 4.20-5.40 [facility] Comment on above: Performed By: #### P GLU #### [facility] [address] [place] [address] WBC (Bld) [#/Vol] 3.2 10*3/uL Low 4.8-10.8 [facility] Comment on above: Performed By: #### P GLU #### [facility] [address] [place] [address] Comprehensive Metabolic Pane nestor 11-29-2022 Albumin [Mass/Vol] 3.5 g/dL Normal 3.5-4.6 [facility] Comment on above: Performed By: #### P GLU #### [facility] [address] [place] [address] ALP [Catalytic activity/Vol] 60 U/L Normal 40-130 [facility] Comment on above: Performed By: #### P GLU #### [facility] [address] [place] [address] ALT [Catalytic activity/Vol] 15 U/L Normal 0-33 [facility] Comment on above: Performed By: #### P GLU #### [facility] [address] [place] [address] Anion gap [Moles/Vol] 8 mmol/L Low 9-15 [facility] Comment on above: Performed By: #### P GLU #### [facility] [address] [place] [address] AST [Catalytic activity/Vol] 28 U/L Normal 0-35 [facility] Comment on above: Performed By: #### P GLU #### [facility] [address] [place] [address] Bilirubin [Mass/Vol] mg/dL Normal 0.2-0.7 [facility] Comment on above: Performed By: #### P GLU #### [facility] [address] [place] [address] Calcium [Mass/Vol] 8.4 mg/dL Low 8.5-9.9 [facility] Comment on above: Performed By: #### P GLU #### [facility] [address] [place] [address] Chloride [Moles/Vol] 113 mmol/L Critically high 95-107 [facility] Comment on above: Performed By: #### P GLU #### [facility] [address] [place] [address] CO2 [Moles/Vol] 23 mmol/L Normal 20-31 [facility] Comment on above: Performed By: #### P GLU #### [facility] [address] [place] [address] Creatinine [Mass/Vol] 0.71 mg/dL Normal 0.50-0.90 [facility] Comment on above: Performed By: #### P GLU #### [facility] [address] [place] [address] GFR >60.0 Normal >60 [facility] [...] #### [facility] [address] [place] [address] Globulin (S) [Mass/Vol] 2.2 g/dL Low 2.3-3.5 [facility] Comment on above: Performed By: #### P GLU #### [facility] [address] [place] [address] Glucose [Mass/Vol] 85 mg/dL Normal 70-99 [facility] Comment on above: Performed By: #### P GLU #### [facility] [address] [place] [address] Potassium [Moles/Vol] 4.2 mmol/L Normal 3.4-4.9 [facility] Comment on above: Performed By: #### P GLU #### [facility] [address] [place] [address] Protein [Mass/Vol] 5.7 g/dL Low 6.3-8.0 [facility] Comment on above: Performed By: #### P GLU #### [facility] [address] [place] [address] Sodium [Moles/Vol] 144 mmol/L Normal 135-144 [facility] Comment on above: Performed By: #### P GLU #### [facility] [address] [place] [address] Urea nitrogen [Mass/Vol] 5 mg/dL Low 6-20 [facility] Comment on above: Performed By: #### P GLU #### [facility] [address] [place] [address] Lactic Acidon 11-29-2022 Lactate [Moles/Vol] 0.9 mmol/L Normal 0.5-2.2 [facility] Comment on above: Performed By: #### L IPAS #### [facility] [address] [place] [address] Lipaseon 11-29-2022 Lipase [Catalytic activity/Vol] 48 U/L Normal 12-95 [facility] Comment on above: Performed By: #### L IPAS #### [facility] [address] [place] [address] Magnesiumon 11-29-2022 Magnesium [Mass/Vol] 1.9 mg/dL Normal 1.7-2.4 [facility] Comment on above: Performed By: #### P GLU #### [facility] [address] [place] [address] Partial Thromboplastin Timeo n 11-29-2022 aPTT Coag (Bld) [Time] 33.0 s Normal 24.4-36.8 [facility] Comment on above: Result Comment: Effe ctive 12/20/2019: Heparin Therapeutic Range: 64.0 ? 98.0 seconds. Performed By: #### C BCWD #### [facility] [address] [place] [address] Phosphoruson 11-29-2022 Phosphate [Mass/Vol] 3.3 mg/dL Normal 2.3-4.8 [facility] Comment on above: Performed By: #### C BCWD #### [facility] [address] [place] [address] Prothrombin Timeon INR Coag (PPP) [Relative time] 1.2 {INR} Normal [facility] Comment on above: Performed By: #### P T #### [facility] [address] [place] [address] PT Coag (PPP) [Time] 15.6 s Critically high 12.3-14.9 [facility] Comment on above: Performed By: #### P T #### [facility] [address] [place] [address] Prealbuminon 11-28-2022 Prealbumin [Mass/Vol] 15.0 mg/dL Low 20.0-40.0 [facility] Comment on above: Order Comment: Colle ction has been rescheduled by DUEAS at 11/28/2022 18:15 Reason:Failed attempt at venipuncture Performed By: #### L IPAS #### [facility] [address] [place] [address] Amylaseon 11-27-2022 Amylase [Catalytic activity/Vol] 44 U/L Normal 22-93 [facility] Comment on above: Performed By: #### P GLU #### [facility] [address] [place] [address] CBC With Platelet and Differ entialon 11-27-2022 Basophils (Bld) [#/Vol] 0.0 10*3/uL Normal 0.0-0.2 [facility] Comment on above: Performed By: #### P GLU #### [facility] [address] [place] [address] Basophils/100 WBC (Bld) 0.7 % Normal [facility] Comment on above: Performed By: #### P GLU #### [facility] [address] [place] [address] Eosinophils (Bld) [#/Vol] 0.1 10*3/uL Normal 0.0-0.7 [facility] Comment on above: Performed By: #### P GLU #### [facility] [address] [place] [address] Eosinophils/100 WBC (Bld) 1.4 % Normal [facility] Comment on above: Performed By: #### P GLU #### [facility] [address] [place] [address] Erythrocyte distribution width (RBC) [Ratio] 13.3 % Normal 11.5-14.5 [facility] Comment on above: Performed By: #### P GLU #### [facility] [address] [place] [address] Hematocrit (Bld) [Volume fraction] 38.0 % Normal 37.0-47.0 [facility] Comment on above: Performed By: #### P GLU #### [facility] [address] [place] [address] Hemoglobin (Bld) [Mass/Vol] 12.7 g/dL Normal 12.0-16.0 [facility] Comment on above: Performed By: #### P GLU #### [facility] [address] [place] [address] Lymphocytes (Bld) [#/Vol] 1.4 10*3/uL Normal 1.0-4.8 [facility] Comment on above: Performed By: #### P GLU #### [facility] [address] [place] [address] Lymphocytes/100 WBC (Bld) 32.1 % Normal [facility] Comment on above: Performed By: #### P GLU #### [facility] [address] [place] [address] MCH (RBC) [Entitic mass] 30.6 pg Normal 27.0-31.3 [facility] Comment on above: Performed By: #### P GLU #### [facility] [address] [place] [address] MCHC 33.4 % Normal 33.0-37.0 [facility] Comment on above: Performed By: #### P GLU #### [facility] [address] [place] [address] MCV (RBC) [Entitic vol] 91.6 fL Normal 79.4-94.8 [facility] Comment on above: Performed By: #### P GLU #### [facility] [address] [place] [address] Monocytes (Bld) [#/Vol] 0.3 10*3/uL Normal 0.2-0.8 [facility] Comment on above: Performed By: #### P GLU #### [facility] [address] [place] [address] Monocytes/100 WBC (Bld) 6.0 % Normal [facility] Comment on above: Performed By: #### P GLU #### [facility] [address] [place] [address] Neutrophils (Bld) [#/Vol] 2.6 10*3/uL Normal 1.4-6.5 [facility] Comment on above: Performed By: #### P GLU #### [facility] [address] [place] [address] Neutrophils/100 WBC (Bld) 59.6 % Normal [facility] Comment on above: Performed By: #### P GLU #### [facility] [address] [place] [address] Platelets (Bld) [#/Vol] 238 10*3/uL Normal 130-400 [facility] Comment on above: Performed By: #### P GLU #### [facility] [address] [place] [address] RBC (Bld) [#/Vol] 4.15 10*6/uL Low 4.20-5.40 [facility] Comment on above: Performed By: #### P GLU #### [facility] [address] [place] [address] WBC (Bld) [#/Vol] 4.4 10*3/uL Low 4.8-10.8 [facility] Comment on above: Performed By: #### P GLU #### [facility] [address] [place] [address] [address] ABDOMEN PELVIS W IV CONTR Daljit [...] #### [facility] [address] [place] [address] ALP [Catalytic activity/Vol] 60 U/L Normal 40-130 [facility] Comment on above: Performed By: #### P GLU #### [facility] [address] [place] [address] ALT [Catalytic activity/Vol] 20 U/L Normal 0-33 [facility] Comment on above: Performed By: #### P GLU #### [facility] [address] [place] [address] Anion gap [Moles/Vol] 10 mmol/L Normal 9-15 [facility] Comment on above: Performed By: #### P GLU #### [facility] [address] [place] [address] AST [Catalytic activity/Vol] 34 U/L Normal 0-35 [facility] Comment on above: Performed By: #### P GLU #### [facility] [address] [place] [address] Bilirubin [Mass/Vol] 0.4 mg/dL Normal 0.2-0.7 [facility] Comment on above: Performed By: #### P GLU #### [facility] [address] [place] [address] Calcium [Mass/Vol] 8.4 mg/dL Low 8.5-9.9 [facility] Comment on above: Performed By: #### P GLU #### [facility] [address] [place] [address] Chloride [Moles/Vol] 108 mmol/L Critically high 95-107 [facility] Comment on above: Performed By: #### P GLU #### [facility] [address] [place] [address] CO2 [Moles/Vol] 20 mmol/L Normal 20-31 [facility] Comment on above: Performed By: #### P GLU #### [facility] [address] [place] [address] Creatinine [Mass/Vol] 0.68 mg/dL Normal 0.50-0.90 [facility] Comment on above: Performed By: #### P GLU #### [facility] [address] [place] [address] GFR >60.0 Normal >60 [facility] [...] GLU #### [facility] [address] [place] [address] Globulin (S) [Mass/Vol] 2.3 g/dL Normal 2.3-3.5 [facility] Comment on above: Performed By: #### P GLU #### [facility] [address] [place] [address] Glucose [Mass/Vol] 82 mg/dL Normal 70-99 [facility] Comment on above: Performed By: #### P GLU #### [facility] [address] [place] [address] Potassium [Moles/Vol] 3.7 mmol/L Normal 3.4-4.9 [facility] Comment on above: Performed By: #### P GLU #### [facility] [address] [place] [address] Protein [Mass/Vol] 6.3 g/dL Normal 6.3-8.0 [facility] Comment on above: Performed By: #### P GLU #### [facility] [address] [place] [address] Sodium [Moles/Vol] 138 mmol/L Normal 135-144 [facility] Comment on above: Performed By: #### P GLU #### [facility] [address] [place] [address] Urea nitrogen [Mass/Vol] 8 mg/dL Normal 6-20 [facility] Comment on above: Performed By: #### P GLU #### [facility] [address] [place] [address] High Sensitivity Troponin To n 11-27-2022 High Sensitivity Troponin T <6 Normal 0-19 [facility] Comment on above: Result Comment: High Sensitivity Troponin values cannot be compared with other Troponin methodologies. Performed By: #### T RP5 #### [facility] [address] [place] [address] High Sensitivity Troponin T <6 Normal 0-19 [facility] Comment on above: Result Comment: High Sensitivity Troponin values cannot be compared with other Troponin methodologies. Performed By: #### P GLU #### [facility] [address] [place] [address] Lactic Acidon 11-27-2022 Lactate [Moles/Vol] 1.0 mmol/L Normal 0.5-2.2 [facility] Comment on above: Performed By: #### P GLU #### [facility] [address] [place] [address] Lipaseon 11-27-2022 Lipase [Catalytic activity/Vol] 37 U/L Normal 12-95 [facility] Comment on above: Performed By: #### P GLU #### [facility] [address] [place] [address] Magnesiumon 11-27-2022 Magnesium [Mass/Vol] 1.9 mg/dL Normal 1.7-2.4 [facility] Comment on above: Performed By: #### P GLU #### [facility] [address] [place] [address] POCT Venouson 11-27-2022 Creatinine [Mass/Vol] 0.9 mg/dL Normal 0.6-1.2 [facility] Comment on above: Performed By: #### L IPAS #### [facility] [address] [place] [address] GFR >60 Normal >60 [facility] [...] IPAS #### [facility] [address] [place] [address] POC Performed on SEE BELOW Normal [facility] Comment on above: Result Comment: Perf ormed on POC Performed By: #### L IPAS #### [facility] [address] [place] [address] POC Sample Type KIRA Normal [facility] Comment on above: Performed By: #### L IPAS #### [facility] [address] [place] [address] Urinalysis, reflex to cultur ryder 11-27-2022 Bilirubin Ql (U) Negative Normal Negative [facility] Comment on above: Performed By: #### P GLU #### [facility] [address] [place] [address] Clarity (U) Clear Normal Clear [facility] Comment on above: Performed By: #### P GLU #### [facility] [address] [place] [address] Color (U) Yellow Normal Straw/[place] [facility] Comment on above: Performed By: #### P GLU #### [facility] [address] [place] [address] Glucose Ql (U) Negative Normal Negative [facility] Comment on above: Performed By: #### P GLU #### [facility] [address] [place] [address] Hemoglobin Ql (U) Negative Normal Negative [facility] Comment on above: Performed By: #### P GLU #### [facility] [address] [place] [address] Ketones Ql (U) Negative Normal Negative [facility] Comment on above: Performed By: #### P GLU #### [facility] [address] [place] [address] Leukocyte esterase Test strip Ql (U) Negative Normal Negative [facility] Comment on above: Performed By: #### P GLU #### [facility] [address] [place] [address] Nitrite Ql (U) Negative Normal Negative [facility] Comment on above: Performed By: #### P GLU #### [facility] [address] [place] [address] pH (U) 7.5 [pH] Normal 5.0-9.0 [facility] Comment on above: Performed By: #### P GLU #### [facility] [address] [place] [address] Protein Ql (U) Negative Normal Negative [facility] Comment on above: Performed By: #### P GLU #### [facility] [address] [place] [address] Specific gravity (U) [Rel density] 1.026 Normal 1.005-1.03 [facility] Comment on above: Performed By: #### P GLU #### [facility] [address] [place] [address] Urine Reflexed to Culture Not Indicated Normal [facility] Comment on above: Performed By: #### P GLU #### [facility] [address] [place] [address] Urobilinogen Qn (U) 0.2 {Munir'U}/dL Normal < 2.0 [facility] Comment on above: Performed By: #### P GLU #### [facility] [address] [place] [address] CNNURSEon 11-26-2022 CNNURSE Normal [facility] US MESENTERIC ARTERY CMPLT V LABon 11-26-2022 US MESENTERIC ARTERY CMPLT VAS LAB Normal [facility] Ambulatory Visit Summaryon 1 Ambulatory Visit Summary Normal [address] [place] [address]- \.br\ Medications\.br\ What How Much When Why [...] hours as needed for Pain Pickup at [facility]pharmacy #[id number]\.br\ Pharmacy Information\.br\ [id number]: [address], [place] [id number] [phone]\.br\ Allergies\.br\ NSAIDs (Unknown)\.br\ codeine (unknown)\.br\ Problems\.br\ Ongoing [...] Metabolic syndrome\.br\ PCOS- polycystic ovary syndrome\.br\ \.br\ [facility] CNPNon 11-25-2022 CNPN Normal [facility] Family Medicine Office/Clini c Noteon 11-25-2022 Family Medicine Office/Clinic Note Normal [facility] Comment on above: Result Comment: Elec tronically Signed By: Jaquan Paula\.br\Date and Time Signed: 11/25/22 13:56 EDT Population Healthon 11-25-19 Population Health Normal [facility] Basic metabolic 1999 panelon 11-23-2022 Anion gap [Moles/Vol] 12 mmol/L Normal - [facility] Comment on above: Order Comment: Speci men Type: BLOOD SPECIMENOrdering Facility: [facility] Address: [address] [place], [place] [address] [address] Performed By: #### 2 4321-2, 45266-2, 19042-2 ####[facility] LABORATORYCLIA [id number] [facility] [place] [address] [place] Calcium [Mass/Vol] 8.4 mg/dL Low 8.5-10.2 [facility] Comment on above: Order Comment: Speci men Type: BLOOD SPECIMENOrdering Facility: [facility] Address: [address] [place] [address] Performed By: #### 2 4321-2, 95764-6, ####[facility] LABORATORYCLIA [id number] [place] [address] [place] Chloride [Moles/Vol] 107 mmol/L High 97-105 [facility] Comment on above: Order Comment: Speci men Type: BLOOD SPECIMENOrdering Facility: [facility] Address: [address] [place] [address] Performed By: #### 2 4321-2, 93490-9, ####[facility] LABORATORYCLIA [id number] [place] [address] [place] CO2 [Moles/Vol] 19 mmol/L Low 22-30 [facility] Comment on above: Order Comment: Speci men Type: BLOOD SPECIMENOrdering Facility: [facility] Address: [address] [place] [address] Performed By: #### 2 4321-2, 20243-7, ####[facility] HOSPITALIA [id number] [place] [address] [place] Creatinine [Mass/Vol] 0.71 mg/dL Normal 0.58-0.96 [facility] Comment on above: Order Comment: Speci men Type: BLOOD SPECIMENOrdering Facility: [facility] Address: [address] [place] [address] Performed By: #### 2 4321-2, 50793-8, ####[facility] LABORATORYCLIA [id number] [place] [address] [place] Creatinine and Glomerular filtration rate.predicted panel (S/P/Bld) 115 mL/min/1.73m??? Normal >=60 [facility] Comment on above: Order Comment: Speci men Type: BLOOD SPECIMENOrdering Facility: [facility] Address: [address] [id number] Result Comment: Jessica mated Glomerular Filtration Rate [...] actual GFR. Performed By: #### 2 4321-2, 31565-5, ####[facility] HOSPITALIA [id number] [facility] [place] [address] [place] Glucose [Mass/Vol] 105 mg/dL High 74-99 [facility] Comment on above: Order Comment: Geraldo marrero Type: BLOOD SPECIMENOrdering Facility: [facility] Address: [address] [place] [address] Result Comment: The [place] Diabetes Association (ADA) provides guidance for cutoff [...] Standards of Medical Care in Diabetes 2016, [place] [employer] Association. Diabetes Care. 2016.39(Suppl 1). Performed By: #### 2 4321-2, 67438-5, ####[facility] LABORATORYIA [id number] [facility] [address] [place] Potassium [Moles/Vol] 3.8 mmol/L Normal 3.7-5.1 [facility] Comment on above: Order Comment: Geraldo [facility] Type: BLOOD SPECIMENOrdering Facility: [facility] Address: [address] [id number] Performed By: #### 2 4321-2, 66382-2, ####[facility] LABORATORYCLIA [id number] [place] [address] [place] Sodium [Moles/Vol] 138 mmol/L Normal 136-144 [facility] Comment on above: Order Comment: Speci men Type: BLOOD SPECIMENOrdering Facility: [facility] Address: [address] [place] [address] Performed By: #### 2 4321-2, 34043-7, ####[facility] LABORATORYCLIA [id number] [place] [address] [place] Urea nitrogen [Mass/Vol] 7 mg/dL Normal 7-21 [facility] Comment on above: Order Comment: Speci men Type: BLOOD SPECIMENOrdering Facility: [facility] Address: [address] [id number] Performed By: #### 2 4321-2, 09020-7, ####[facility] LABORATORYCLIA [id number] [place] [address] [place] [facility] CBC panel Auto (Bld)on 11-23 Erythrocyte distribution width (RBC) [Ratio] 13.6 % Normal 11.5-15.0 [facility] Comment on above: Order Comment: Speci men Type: BLOOD SPECIMENOrdering Facility: [facility] Address: [address] [id number] Performed By: #### 5 8410-2 ####[facility] LABORATORYCLIA [id number] [place] [address] [place] Hematocrit (Bld) [Volume fraction] 36.4 % Normal 36.0-46.0 [facility] Comment on above: Order Comment: Speci men Type: BLOOD SPECIMENOrdering Facility: [facility] Address: [address] [id number] Performed By: #### 5 8410-2 ####[facility] HOSPITALIA [id number] [place] [address] [place] Hemoglobin (Bld) [Mass/Vol] 11.8 g/dL Normal 11.5-15.5 [facility] Comment on above: Order Comment: Speci men Type: BLOOD SPECIMENOrdering Facility: [facility] Address: [address] [place] [address] Performed By: #### 5 8410-2 ####[facility] [id number] [place] [address] [place] MCH (RBC) [Entitic mass] 30.4 pg Normal 26.0-34.0 [facility] Comment on above: Order Comment: Speci men Type: BLOOD SPECIMENOrdering Facility: [facility] Address: [address] [place] [address] Performed By: #### 5 8410-2 ####[facility] [id number] [place] [id number] [place] MCHC (RBC) [Mass/Vol] 32.4 g/dL Normal 30.5-36.0 [facility] Comment on above: Order Comment: Speci men Type: BLOOD SPECIMENOrdering Facility: [facility] Address: [address] [place] [address] Performed By: #### 5 8410-2 ####[facility] [id number] [place] [address] [place] MCV (RBC) [Entitic vol] 93.8 fL Normal 80.0-100.0 [facility] Comment on above: Order Comment: Speci men Type: BLOOD SPECIMENOrdering Facility: [facility] Address: [address] [place] [address] Performed By: #### 5 8410-2 ####[facility] [id number] [address] [place] Nucleated RBC (Bld) [#/Vol] 10*3/uL Normal <0.01 [facility] Comment on above: Order Comment: Speci men Type: BLOOD SPECIMENOrdering Facility: [facility] Address: [address] [place] [address] Performed By: #### 5 8410-2 ####[facility]ITALIA [id number] [place] [address] [place] Platelet mean volume (Bld) [Entitic vol] 10.9 fL Normal 9.0-12.7 [facility] Comment on above: Order Comment: Speci men Type: BLOOD SPECIMENOrdering Facility: [facility] Address: [address] [place] [address] Performed By: #### 5 8410-2 ####[facility] LABORATORYIA [id number] [place] [address] [place] Platelets (Bld) [#/Vol] 217 10*3/uL Normal 150-400 [facility] Comment on above: Order Comment: Speci men Type: BLOOD SPECIMENOrdering Facility: [facility] Address: [address] [place] [address] Performed By: #### 5 8410-2 ####[facility]ITALIA [id number] [place] [address] [place] RBC (Bld) [#/Vol] 3.88 10*6/uL Low 3.90-5.20 [facility] Comment on above: Order Comment: Speci men Type: BLOOD SPECIMENOrdering Facility: [facility] Address: [address] [place] [address] Performed By: #### 5 8410-2 ####[facility] LABORATORYIA [id number] [place] [address] [place] WBC (Bld) [#/Vol] 3.45 10*3/uL Low 3.70-11.00 [facility] Comment on above: Order Comment: Speci men Type: BLOOD SPECIMENOrdering Facility: [facility] Address: [address] [place] [address] Performed By: #### 5 8410-2 ####[facility] LABORATORYIA [id number] [place] [address] [place] CNDSon 11-23-2022 CNDS Normal [facility] CNPNon 11-23-2022 CNPN Normal [facility] CONSULTon 11-23-2022 CONSULT Normal [facility] Hepatic function 2000 panelo n 11-23-2022 Albumin [Mass/Vol] 3.5 g/dL Low 3.9-4.9 [facility] Comment on above: Order Comment: Speci men Type: BLOOD SPECIMENOrdering Facility: [facility] Address: [address] [place] [address] Performed By: #### 2 4321-2, 92923-7, ####[facility] LABORATORYCLIA [id number] [place] [address] [place] ALP [Catalytic activity/Vol] 58 U/L Normal 34-123 [facility] Comment on above: Order Comment: Speci men Type: BLOOD SPECIMENOrdering Facility: [facility] Address: [address] [place] [address] Performed By: #### 2 4321-2, 39823-4, ####[facility] LABORATORYCLIA [id number] [place] [address] [place] ALT [Catalytic activity/Vol] 17 U/L Normal 7-38 [facility] Comment on above: Order Comment: Speci men Type: BLOOD SPECIMENOrdering Facility: [facility] Address: [address] [place] [address] Performed By: #### 2 4321-2, 52229-3, ####[facility] LABORATORYCLIA [id number] [facility] [place] [address] [place] AST [Catalytic activity/Vol] 34 U/L Normal 13-35 [facility] Comment on above: Order Comment: Speci men Type: BLOOD SPECIMENOrdering Facility: [facility] Address: [address] [place] [address] Performed By: #### 2 4321-2, 40601-7, ####[facility] LABORATORYCLIA [id number] [place] [address] [place] Bilirubin [Mass/Vol] 0.4 mg/dL Normal 0.2-1.3 [facility] Comment on above: Order Comment: Speci men Type: BLOOD SPECIMENOrdering Facility: [facility] Address: [place] [address] Performed By: #### 2 4321-2, 66057-8, ####[facility] LABORATORYIA [id number] [place] [address] [place] Bilirubin.conjugate d [Mass/Vol] mg/dL Normal <0.2 [facility] Comment on above: Order Comment: Speci men Type: BLOOD SPECIMENOrdering Facility: [facility] Address: [place] [address] Performed By: #### 2 4321-2, 26795-5, ####[facility] [id number] [place] [id number] [place] Protein [Mass/Vol] 5.9 g/dL Low 6.3-8.0 [facility] Comment on above: Order Comment: Speci men Type: BLOOD SPECIMENOrdering Facility: [facility] Address: [place] [address] Performed By: #### 2 4321-2, 86732-1, ####[facility]ITAL[facility] [id number] [place] [address] [place] Magnesium SerPl-mCncon 11-23 Magnesium [Mass/Vol] 1.8 mg/dL Normal 1.7-2.3 [facility] Comment on above: Order Comment: Speci men Type: BLOOD SPECIMENOrdering Facility: [facility] Address: [place] [address] Performed By: #### 2 4321-2, 18246-6, ####[facility]ITALIA [id number] [place] [address] [place] CBC W Auto Differential pane l (Bld)on 11-22-2022 Basophils (Bld) [#/Vol] 0.03 10*3/uL Normal <0.11 [facility] Comment on above: Order Comment: Speci men Type: BLOOD SPECIMENOrdering Facility: [facility] Address: [address] [place] [address] Performed By: #### 5 7021-8 ####[facility] LABORATORYCLIA [id number] [facility] [place] [address] [place] Basophils/100 WBC (Bld) 0.6 % Normal [facility] [facility] Comment on above: Order Comment: Speci men Type: BLOOD SPECIMENOrdering Facility: [facility] Address: [address] [place] [address] Performed By: #### 5 7021-8 ####[facility] LABORATORYIA [id number] [place] [address] [place] Differential cell count method Nom (Bld) Auto Normal [facility] Comment on above: Order Comment: Speci men Type: BLOOD SPECIMENOrdering Facility: [facility] Address: [address] [place] [address] Performed By: #### 5 7021-8 ####[facility] LABORATORYCLIA [id number] [facility] [place] [address] [place] Eosinophils (Bld) [#/Vol] 0.08 10*3/uL Normal <0.46 [facility] Comment on above: Order Comment: Speci men Type: BLOOD SPECIMENOrdering Facility: [facility] Address: [address] [place] [address] Performed By: #### 5 7021-8 ####[facility] LABORATORYCLIA [id number] [facility] [place] [address] [place] Eosinophils/100 WBC (Bld) 1.7 % Normal [facility] Comment on above: Order Comment: Speci men Type: BLOOD SPECIMENOrdering Facility: [facility] Address: [address] [place] [address] Performed By: #### 5 7021-8 ####[facility] LABORATORYCLIA [id number] [facility] [place] [address] [place] Erythrocyte distribution width (RBC) [Ratio] 13.4 % Normal 11.5-15.0 [facility] Comment on above: Order Comment: Speci men Type: BLOOD SPECIMENOrdering Facility: [facility] Address: [address] [place] [address] Performed By: #### 5 7021-8 ####[facility] LABORATORYCLIA [id number] [place] [address] [place] Hematocrit (Bld) [Volume fraction] 40.4 % Normal 36.0-46.0 [facility] Comment on above: Order Comment: Speci men Type: BLOOD SPECIMENOrdering Facility: [facility] Address: [address] [place] [address] Performed By: #### 5 7021-8 ####[facility] LABORATORYCLIA [id number] [place] [address] [place] Hemoglobin (Bld) [Mass/Vol] 13.8 g/dL Normal 11.5-15.5 [facility] Comment on above: Order Comment: Speci men Type: BLOOD SPECIMENOrdering Facility: [facility] Address: [address] [place] [address] Performed By: #### 5 7021-8 ####[facility] LABORATORYIA [id number] [address] [place] Immature granulocytes (Bld) [#/Vol] 10*3/uL Normal <0.10 [facility] Comment on above: Order Comment: Speci men Type: BLOOD SPECIMENOrdering Facility: [facility] Address: [address] [place] [address] Performed By: #### 5 7021-8 ####[facility] LABORATORYIA [id number] [address] [place] Immature granulocytes/100 WBC (Bld) 0.2 % Normal [facility] Comment on above: Order Comment: Speci men Type: BLOOD SPECIMENOrdering Facility: [facility] Address: [address] [place] [address] Performed By: #### 5 7021-8 ####[facility] LABORATORYCLIA [id number] [place] [address] [place] Lymphocytes (Bld) [#/Vol] 2.01 10*3/uL Normal 1.00-4.00 [facility] Comment on above: Order Comment: Speci men Type: BLOOD SPECIMENOrdering Facility: [facility] Address: [address] [place] [address] Performed By: #### 5 7021-8 ####[facility] LABORATORYIA [id number] [place] [address] [place] Lymphocytes/100 WBC (Bld) 42.2 % Normal [facility] Comment on above: Order Comment: Speci men Type: BLOOD SPECIMENOrdering Facility: [facility] Address: [address] [place] [address] Performed By: #### 5 7021-8 ####[facility] [id number] [place] [address] [place] MCH (RBC) [Entitic mass] 31.2 pg Normal 26.0-34.0 [facility] Comment on above: Order Comment: Speci men Type: BLOOD SPECIMENOrdering Facility: [facility] Address: [address] [place] [address] Performed By: #### 5 7021-8 ####[facility] HOSPITALIA [id number] [place] [address] [place] MCHC (RBC) [Mass/Vol] 34.2 g/dL Normal 30.5-36.0 [facility] Comment on above: Order Comment: Speci men Type: BLOOD SPECIMENOrdering Facility: [facility] Address: [address] [place] [address] Performed By: #### 5 7021-8 ####[facility] HOSPITALIA [id number] [address] [place] MCV (RBC) [Entitic vol] 91.4 fL Normal 80.0-100.0 [facility] Comment on above: Order Comment: Speci men Type: BLOOD SPECIMENOrdering Facility: [facility] Address: [address] [place] [address] Performed By: #### 5 7021-8 ####[facility] LABORATORYCLIA [id number] [place] [address] [place] Monocytes (Bld) [#/Vol] 0.25 10*3/uL Normal <0.87 [facility] Comment on above: Order Comment: Speci men Type: BLOOD SPECIMENOrdering Facility: [facility] Address: [address] [place] [address] Performed By: #### 5 7021-8 ####[facility] LABORATORYCLIA [id number] [place] [address] [place] Monocytes/100 WBC (Bld) 5.3 % Normal [facility] Comment on above: Order Comment: Speci men Type: BLOOD SPECIMENOrdering Facility: [facility] Address: [address] [place] [address] Performed By: #### 5 7021-8 ####[facility] LABORATORYIA [id number] [place] [address] [place] Neutrophils (Bld) [#/Vol] 2.38 10*3/uL Normal 1.45-7.50 [facility] Comment on above: Order Comment: Speci men Type: BLOOD SPECIMENOrdering Facility: [facility] Address: [address] [place] [address] Performed By: #### 5 7021-8 ####[facility] LABORATORYCLIA [id number] [facility] [place] [address] [place] Neutrophils/100 WBC (Bld) 50.0 % Normal [facility] Comment on above: Order Comment: Speci men Type: BLOOD SPECIMENOrdering Facility: [facility] Address: [address] [place] [address] Performed By: #### 5 7021-8 ####[facility] LABORATORYCLIA [id number] [facility] [place] [address] [place] Nucleated RBC (Bld) [#/Vol] 10*3/uL Normal <0.01 [facility] Comment on above: Order Comment: Speci men Type: BLOOD SPECIMENOrdering Facility: [facility] Address: [address] [place] [address] Performed By: #### 5 7021-8 ####[facility] HOSPITALIA [id number] [place] [address] [place] Nucleated RBC/100 WBC (Bld) [Ratio] 0.0 /100 WBC Normal [facility] Comment on above: Order Comment: Speci men Type: BLOOD SPECIMENOrdering Facility: [facility] Address: [address] [place] [address] Performed By: #### 5 7021-8 ####[facility] HOSPITALIA [id number] [place] [address] [place] Platelet mean volume (Bld) [Entitic vol] 11.1 fL Normal 9.0-12.7 [facility] Comment on above: Order Comment: Speci men Type: BLOOD SPECIMENOrdering Facility: [facility] Address: [address] [place] [address] Performed By: #### 5 7021-8 ####[facility] LABORATORYIA [id number] [place] [address] [place] Platelets (Bld) [#/Vol] 282 10*3/uL Normal 150-400 [facility] Comment on above: Order Comment: Speci men Type: BLOOD SPECIMENOrdering Facility: [facility] Address: [address] [place] [address] Performed By: #### 5 7021-8 ####[facility] LABORATORYIA [id number] [place] [address] [place] RBC (Bld) [#/Vol] 4.42 10*6/uL Normal 3.90-5.20 [facility] Comment on above: Order Comment: Speci men Type: BLOOD SPECIMENOrdering Facility: [facility] Address: [address] [place] [address] Performed By: #### 5 7021-8 ####[facility] LABORATORYIA [id number] [place] [address] [place] WBC (Bld) [#/Vol] 4.76 10*3/uL Normal 3.70-11.00 [facility] Comment on above: Order Comment: Speci men Type: BLOOD SPECIMENOrdering Facility: [facility] Address: [address] [place] [address] Performed By: #### 5 7021-8 ####[facility] LABORATORYCLIA [id number] [place] [address] [place] CT ABD/PEL W IVCONon 023 CT ABD/PEL W IVCON Normal [facility] Comprehensive metabolic 2000 panelon 11-22-2022 Albumin [Mass/Vol] 4.4 g/dL Normal 3.9-4.9 [facility] Comment on above: Order Comment: Speci men Type: BLOOD SPECIMENOrdering Facility: [facility] Address: [address] [place] [address] Performed By: #### 1 9123-9, 79128-7, 0-3 ####[facility] LABORATORYCLIA [id number] [place] [address] [place] ALP [Catalytic activity/Vol] 73 U/L Normal 34-123 [facility] Comment on above: Order Comment: Speci men Type: BLOOD SPECIMENOrdering Facility: [facility] Address: [address] [place] [address] Performed By: #### 1 9123-9, 00428-6, 3040-3 ####[facility] LABORATORYCLIA [id number] [place] [address] [place] ALT [Catalytic activity/Vol] 21 U/L Normal 7-38 [facility] Comment on above: Order Comment: Speci men Type: BLOOD SPECIMENOrdering Facility: [facility] Address: [address] [place] [address] Performed By: #### 1 9123-9, 86610-9, 3040-3 ####[facility] LABORATORYCLIA [id number] [place] [address] [place] Anion gap [Moles/Vol] 11 mmol/L Normal 9-18 [facility] Comment on above: Order Comment: Speci men Type: BLOOD SPECIMENOrdering Facility: [facility] Address: [address] [place] [address] Performed By: #### 1 9123-9, 70803-7, 0-3 ####[facility] LABORATORYCLIA [id number] [place] [address] [place] AST [Catalytic activity/Vol] 39 U/L High 13-35 [facility] Comment on above: Order Comment: Speci men Type: BLOOD SPECIMENOrdering Facility: [facility] Address: [address] [place] [address] Performed By: #### 1 9123-9, 86612-6, 0-3 ####[facility] LABORATORYCLIA [id number] [place] [address] [place] Bilirubin [Mass/Vol] 0.3 mg/dL Normal 0.2-1.3 [facility] Comment on above: Order Comment: Speci men Type: BLOOD SPECIMENOrdering Facility: [facility] Address: [address] [place] [address] Performed By: #### 1 9123-9, 25000-8, 0-3 ####[facility] LABORATORYCLIA [id number] [place] [address] [place] Calcium [Mass/Vol] 8.7 mg/dL Normal 8.5-10.2 [facility] Comment on above: Order Comment: Speci men Type: BLOOD SPECIMENOrdering Facility: [facility] Address: [address] [place] [address] Performed By: #### 1 9123-9, 30293-5, 0-3 ####[facility] LABORATORYCLIA [id number] [place] [address] [place] Chloride [Moles/Vol] 106 mmol/L High 97-105 [facility] Comment on above: Order Comment: Speci men Type: BLOOD SPECIMENOrdering Facility: [facility] Address: [address] [place] [address] Performed By: #### 1 9123-9, 72200-8, 3040-3 ####[facility] LABORATORYCLIA [id number] [place] [address] [place] CO2 [Moles/Vol] 22 mmol/L Normal 22-30 [facility] Comment on above: Order Comment: Speci men Type: BLOOD SPECIMENOrdering Facility: [facility] Address: [address] [place] [place] [address] Performed By: #### 1 9123-9, 97119-1, 0-3 ####[facility] LABORATORYCLIA [id number] [place] [address] [place] Creatinine [Mass/Vol] 0.80 mg/dL Normal 0.58-0.96 [facility] Comment on above: Order Comment: Speci men Type: BLOOD SPECIMENOrdering Facility: [facility] Address: [address] [place] [address] Performed By: #### 1 9123-9, 76223-8, 0-3 ####[facility] HOSPITALIA [id number] [place] [address] [place] Creatinine and Glomerular filtration rate.predicted panel (S/P/Bld) 100 mL/min/1.73m??? Normal >=60 [facility] l Comment on above: Order Comment: Speci men Type: BLOOD SPECIMENOrdering Facility: [facility] Address: [address] [place] [address] Result Comment: Jessica mated Glomerular Filtration Rate [...] actual GFR. Performed By: #### 1 9123-9, 86087-9, 3040-3 ####[facility] LABORATORYIA [id number] [place] [address] [place] Glucose [Mass/Vol] 88 mg/dL Normal 74-99 [facility] Comment on above: Order Comment: Speci men Type: BLOOD SPECIMENOrdering Facility: [facility] Address: [address] [place] [address] Result Comment: The [place] Diabetes Association (ADA) provides guidance for cutoff [...] Standards of Medical Care in Diabetes 2016, [place] [employer] Association. Diabetes Care. 2016.39(Suppl 1). Performed By: #### 1 9123-9, 46883-3, 3040-3 ####[facility] HOSPITALIA [id number] [place] [address] [place] Potassium [Moles/Vol] 3.9 mmol/L Normal 3.7-5.1 [facility] Comment on above: Order Comment: Lyssai men Type: BLOOD SPECIMENOrdering Facility: [facility] Address: [address] [place] [address] Performed By: #### 1 9123-9, 95250-5, 3040-3 ####[facility] LABORATORYCLIA [id number] [place] [address] [place] Protein [Mass/Vol] 7.1 g/dL Normal 6.3-8.0 [facility] Comment on above: Order Comment: Speci men Type: BLOOD SPECIMENOrdering Facility: [facility] Address: [address] [place] [address] Performed By: #### 1 9123-9, 36452-5, 3040-3 ####[facility] LABORATORYIA [id number] [place] [address] [place] Sodium [Moles/Vol] 139 mmol/L Normal 136-144 [facility] Comment on above: Order Comment: Speci men Type: BLOOD SPECIMENOrdering Facility: [facility] Address: [address] [place] [id number] Performed By: #### 1 9123-9, 33827-6, 0-3 ####[facility] LABORATORYCLIA [id number] [place] [address] [place] Urea nitrogen [Mass/Vol] 8 mg/dL Normal 7-21 [facility] Comment on above: Order Comment: Speci men Type: BLOOD SPECIMENOrdering Facility: [facility] Address: [address] [address] Performed By: #### 1 9123-9, 45710-8, 0-3 ####[facility] LABORATORYCLIA [id number] [facility] [place] [address] [place] ECG COMPLETEon 11-22-2022 ECG COMPLETE Normal [facility] ED NOTEon 11-22-2022 ED NOTE HNO ID: [id number] Author: Lady Garza RN Service: Emergency Medicine Author Type: Registered Nurse Type: ED Notes Filed: 11/22/2022 3:21 PM Note Text: Report to [facility] PRICE Normal [facility] ED PROV NOTEon 11-22-2022 ED PROV NOTE Normal [facility] HISTORY PHYSICALon HISTORY PHYSICAL Normal [facility] Lipase SerPl-cCncon 11-23-19 23 Lipase [Catalytic activity/Vol] 45 U/L Normal 16-61 [facility] Comment on above: Order Comment: Speci men Type: BLOOD SPECIMENOrdering Facility: [facility] Address: [place] [id number] Performed By: #### 1 9123-9, 70246-7, 0-3 ####[facility] LABORATORYCLIA [id number] [facility] [place] [address] [place] Magnesium SerPl-mCncon 11-22 Magnesium [Mass/Vol] 1.9 mg/dL Normal 1.7-2.3 [facility] Comment on above: Order Comment: Speci men Type: BLOOD SPECIMENOrdering Facility: [facility] Address: [address] [place] [address] Performed By: #### 1 9123-9, 71679-9, 3040-3 ####[facility] HOSPITALIA [id number] [place] [address] [place] NURSING PROGon 11-22-2022 NURSING PROG Normal [facility] Urinalysis complete panel (U )on 11-22-2022 Bilirubin Ql (U) Negative Normal Negative [facility] pital Comment on above: Order Comment: Speci men Type: URINE SPECIMENOrdering Facility: [facility] Address: [address] [place] [address] Performed By: #### 2 4356-8 ####[facility] [id number] [place] [address] [place] Clarity (Unsp spec) Clear Normal Clear [facility] Comment on above: Order Comment: Speci men Type: URINE SPECIMENOrdering Facility: [facility] Address: [address] [place] [address] Performed By: #### 2 4356-8 ####[facility] [id number] [place] [address] [place] Color (U) Light Yellow Normal yellow [facility] Comment on above: Order Comment: Speci men Type: URINE SPECIMENOrdering Facility: [facility] Address: [address] [place] [address] Performed By: #### 2 4356-8 ####[facility] HOSPITALIA [id number] [place] [address] [place] Epithelial cells LM.HPF (Urine sed) [#/Area] Few Normal [facility] Comment on above: Order Comment: Speci men Type: URINE SPECIMENOrdering Facility: [facility] Address: [address] [place] [address] Performed By: #### 2 4356-8 ####[facility] HOSPITALIA [id number] [place], [place] [address] [place] [address] [place] Glucose Test strip (U) [Mass/Vol] Negative Normal Trace, Negative [facility] Comment on above: Order Comment: Speci men Type: URINE SPECIMENOrdering Facility: [facility] Address: [address] [place] [address] Performed By: #### 2 4356-8 ####[facility] LABORATORYIA [id number] [place] [address] [place] Hemoglobin Ql (U) Negative Normal Negative, Trace [facility] Comment on above: Order Comment: Speci men Type: URINE SPECIMENOrdering Facility: [facility] Address: [address] [place] [address] Performed By: #### 2 4356-8 ####[facility]PITALIA [id number] [place] [address] [place] Ketones Ql (U) Negative Normal Negative, Trace [facility] Comment on above: Order Comment: Speci men Type: URINE SPECIMENOrdering Facility: [facility] Address: [address] [place] [address] Performed By: #### 2 4356-8 ####[facility] HOSPITALIA [id number] [place] [address] [place] Leukocyte esterase Test strip Ql (U) Negative Normal Negative, 25 Pat[place]/uL [facility] Comment on above: Order Comment: Speci men Type: URINE SPECIMENOrdering Facility: [facility] Address: [address] [place] [address] Performed By: #### 2 4356-8 ####[facility] LABORATORYIA [id number] [place] [address] [place] Nitrite Ql (U) Negative Normal Negative [facility] Comment on above: Order Comment: Speci men Type: URINE SPECIMENOrdering Facility: [facility] Address: [address] [place] [address] Performed By: #### 2 4356-8 ####[facility] LABORATORYIA [id number] [place] [address] [place] pH (U) 7.0 [pH] Normal 5.0-8.0 [facility] Comment on above: Order Comment: Speci men Type: URINE SPECIMENOrdering Facility: [facility] Address: [address] [place] [address] Performed By: #### 2 4356-8 ####[facility]OS[facility]ITALIA [id number] [place] [id number] [place] Protein (U) [Mass/Vol] Negative Normal Trace, Negative [facility] Comment on above: Order Comment: Speci men Type: URINE SPECIMENOrdering Facility: [facility] Address: [address] [place] [address] Performed By: #### 2 4356-8 ####[facility] [id number] [place] [address] [place] RBC LM.HPF (Urine sed) [#/Area] 0-3 /HPF Normal 0-3 /HPF [facility] Comment on above: Order Comment: Speci men Type: URINE SPECIMENOrdering Facility: [facility] Address: [address] [place] [address] Performed By: #### 2 4356-8 ####[facility] [id number] [address] [place] Specific gravity (U) [Rel density] 1.020 Normal 1.005-1.030 [facility] Comment on above: Order Comment: Speci men Type: URINE SPECIMENOrdering Facility: [facility] Address: [address] [place] [address] Performed By: #### 2 4356-8 ####[facility] [id number] [place] [id number] [place] Urobilinogen Ql (U) Normal Normal Negative [facility] Comment on above: Order Comment: Speci men Type: URINE SPECIMENOrdering Facility: [facility] Address: [address] [place] [address] Performed By: #### 2 4356-8 ####[facility] [id number] [place] [address] [place] WBC LM.HPF (Urine sed) [#/Area] 0-5 /HPF Normal 0-5 /HPF [facility] Comment on above: Order Comment: Speci men Type: URINE SPECIMENOrdering Facility: [facility] Address: [address] [place] [address] Performed By: #### 2 4356-8 ####[facility] LABORATORYCLIA [id number] [place] [address] [place] XR CHEST 2V FRONTAL/LATon XR CHEST 2V FRONTAL/LAT Normal [facility] CNPNon 11-20-2022 CNPN Normal [facility] Basic metabolic 2000 panelon 11-19-2022 Anion gap [Moles/Vol] 11 mmol/L Normal 9-18 [facility] Comment on above: Order Comment: Speci men Type: BLOOD SPECIMENOrdering Facility: [facility] Address: [address] [place], [place] [address] Performed By: #### 1 9123-9, 04777-3, 2776- ####[facility]ATORYCLIA [id number] [place] [id number] [place] Calcium [Mass/Vol] 8.9 mg/dL Normal 8.5-10.2 [facility] Comment on above: Order Comment: Speci men Type: BLOOD SPECIMENOrdering Facility: [facility] Address: [address] [place], [place] [address] Performed By: #### 1 9123-9, 07067-8, 2776- ####[facility]ORATORYCLIA [id number] [place] [address] [place] Chloride [Moles/Vol] 104 mmol/L Normal 97-105 [facility] Comment on above: Order Comment: Speci men Type: BLOOD SPECIMENOrdering Facility: [facility] Address: [address] [place] [address] Performed By: #### 1 9123-9, 98882-9, 2776- ####[facility]ORATORYCLIA [id number] [place] [address] [place] CO2 [Moles/Vol] 25 mmol/L Normal 22-30 [facility] Comment on above: Order Comment: Speci men Type: BLOOD SPECIMENOrdering Facility: [facility] Address: [address] [place] [address] Performed By: #### 1 9123-9, 09565-0, 2776- ####[facility]ORATORYCLIA [id number] [address] [place] Creatinine [Mass/Vol] 0.82 mg/dL Normal 0.58-0.96 [facility] [facility] Comment on above: Order Comment: Speci men Type: BLOOD SPECIMENOrdering Facility: [facility] Address: [address] [place] [address] Performed By: #### 1 9123-9, 25830-8, 2776-02 ####[facility] LABORATORYCLIA [id number] [address] [facility] Creatinine and Glomerular filtration rate.predicted panel (S/P/Bld) 97 mL/min/1.73m??? Normal >=60 [facility] Comment on above: Order Comment: Speci men Type: BLOOD SPECIMENOrdering Facility: [facility] Address: [address] [place] [address] Result Comment: Jessica mated Glomerular Filtration Rate [...] actual GFR. Performed By: #### 1 9123-9, 62452-7, 2776-02 ####[facility] LABORATORYCLIA [id number] [place] [address] [place] Glucose [Mass/Vol] 80 mg/dL Normal 74-99 [facility] Comment on above: Order Comment: Speci men Type: BLOOD SPECIMENOrdering Facility: [facility] Address: [address] [place] [address] Result Comment: The [place] Diabetes Association (ADA) provides guidance for cutoff [...] Standards of Medical Care in Diabetes 2016, [place] Diabetes Association. Diabetes Care. 2016.39(Suppl 1). Performed By: #### 1 9123-9, 74608-4, 2776-02 ####[facility] LABORATORYCLIA [id number] [place] [address] [place] Potassium [Moles/Vol] 4.2 mmol/L Normal 3.7-5.1 [facility] Comment on above: Order Comment: Speci men Type: BLOOD SPECIMENOrdering Facility: [facility] Address: [address] [place] [address] Performed By: #### 1 9123-9, , 2776-02 ####CER[facility] LABORATORYCLIA [id number] [place] [id number] [place] Sodium [Moles/Vol] 140 mmol/L Normal 136-144 [facility] Comment on above: Order Comment: Speci men Type: BLOOD SPECIMENOrdering Facility: [facility] Address: [address] [place] [address] Performed By: #### 1 9123-9, 85979-9, 2776-02 ####C[facility] LABORATORYCLIA [id number] [place] [id number] [place] Urea nitrogen [Mass/Vol] 6 mg/dL Low 7-21 [facility] Comment on above: Order Comment: Speci men Type: BLOOD SPECIMENOrdering Facility: [facility] Address: [address] [place] [address] Performed By: #### 1 9123-9, 62273-8, 2776-02 ####CER[facility] LABORATORYCLIA [id number] [place] [id number] [facility] CBC panel Auto (Bld)on 11-19 Erythrocyte distribution width (RBC) [Ratio] 13.2 % Normal 11.5-15.0 [facility] Comment on above: Order Comment: Speci men Type: BLOOD SPECIMENOrdering Facility: [facility] Address: [address] [place] [address] Performed By: #### 5 8410-2 ####OS[facility]DO LABORATORYCLIA [id number] [address] Hematocrit (Bld) [Volume fraction] 36.3 % Normal 36.0-46.0 [facility] Comment on above: Order Comment: Speci men Type: BLOOD SPECIMENOrdering Facility: [facility] Address: [address] [place] [address] Performed By: #### 5 8410-2 ####OSVALDO LABORATORYCLIA [id number] [address] Hemoglobin (Bld) [Mass/Vol] 12.4 g/dL Normal 11.5-15.5 [facility] Comment on above: Order Comment: Speci men Type: BLOOD SPECIMENOrdering Facility: [facility] Address: [address] [place] [address] Performed By: #### 5 8410-2 ####OSVALDO LABORATORYCLIA [id number] [address] [place] MCH (RBC) [Entitic mass] 30.4 pg Normal 26.0-34.0 [facility] Comment on above: Order Comment: Speci men Type: BLOOD SPECIMENOrdering Facility: [facility] Address: [address] [place] [address] Performed By: #### 5 8410-2 ####[facility] LABORATORYCLIA [id number] [address] MCHC (RBC) [Mass/Vol] 34.2 g/dL Normal 30.5-36.0 [facility] Comment on above: Order Comment: Speci men Type: BLOOD SPECIMENOrdering Facility: [facility] Address: [address] [place] [address] Performed By: #### 5 8410-2 ####CERES[facility] LABORATORYCLIA [id number] [place] [id number] [place] MCV (RBC) [Entitic vol] 89.0 fL Normal 80.0-100.0 [facility] Comment on above: Order Comment: Speci men Type: BLOOD SPECIMENOrdering Facility: [facility] Address: [address] [place] [address] Performed By: #### 5 8410-2 ####CERES[facility] LABORATORYCLIA [id number] [place] [id number] [place] Nucleated RBC (Bld) [#/Vol] 10*3/uL Normal <0.01 [facility] Comment on above: Order Comment: Speci men Type: BLOOD SPECIMENOrdering Facility: [facility] Address: [address] [place] [address] Performed By: #### 5 8410-2 ####C[facility] LABORATORYCLIA [id number] [place] [address] [place] Platelet mean volume (Bld) [Entitic vol] 11.3 fL Normal 9.0-12.7 [facility] Comment on above: Order Comment: Speci men Type: BLOOD SPECIMENOrdering Facility: [facility] Address: [address] [place] [address] Performed By: #### 5 8410-2 ####C[facility] LABORATORYCLIA [id number] [place] [id number] [place] Platelets (Bld) [#/Vol] 239 10*3/uL Normal 150-400 [facility] Comment on above: Order Comment: Speci men Type: BLOOD SPECIMENOrdering Facility: [facility] Address: [address] [place] [address] Performed By: #### 5 8410-2 ####CERES[facility] LABORATORYCLIA [id number] [place] [id number] [place] RBC (Bld) [#/Vol] 4.08 10*6/uL Normal 3.90-5.20 [facility] Comment on above: Order Comment: Speci men Type: BLOOD SPECIMENOrdering Facility: [facility] Address: [place] [address] Performed By: #### 5 8410-2 ####CERESCO LABORATORYCLIA [id number] [place] [address] [place] WBC (Bld) [#/Vol] 2.99 10*3/uL Low 3.70-11.00 [facility] Comment on above: Order Comment: Speci men Type: BLOOD SPECIMENOrdering Facility: [facility] Address: [place] [address] Performed By: #### 5 8410-2 ####C[facility] LABORATORYCLIA [id number] [place] [address] [place] CNDSon 11-19-2022 CNDS Normal [facility] Magnesium [Mass/Vol] 1.9 mg/dL Normal 1.7-2.3 [facility] Comment on above: Order Comment: Speci men Type: BLOOD SPECIMENOrdering Facility: [facility] Address: [place] [address] Performed By: #### 1 9123-9, 18570-0, 2777- ####CERES[facility] LABORATORYCLIA [id number] [place] [address] [place] NURSING PROGon 11-19-2022 NURSING PROG Normal [facility] Phosphate SerPl-mCncon 11-19 Phosphate [Mass/Vol] 4.1 mg/dL Normal 2.7-4.8 [facility] Comment on above: Order Comment: Speci men Type: BLOOD SPECIMENOrdering Facility: [facility] Address: [place] [address] Performed By: #### 1 9123-9, 11844-0, 2777-1 ####CERES[facility] LABORATORYCLIA [id number] [place] [id number] [place] Basic metabolic 2000 panelon 11-18-2022 Anion gap [Moles/Vol] 10 mmol/L Normal 9-18 [facility] Comment on above: Order Comment: Speci men Type: BLOOD SPECIMENOrdering Facility: [facility] Address: [address] [place] [address] Performed By: #### 2 4321-2 ####[facility] LABORATORYCLIA [id number] [place] [address] [place] Calcium [Mass/Vol] 8.8 mg/dL Normal 8.5-10.2 [facility] Comment on above: Order Comment: Speci men Type: BLOOD SPECIMENOrdering Facility: [facility] Address: [address] [place] [address] Performed By: #### 2 4321-2 ####C[facility] LABORATORYCLIA [id number] [place] [address] [place] Chloride [Moles/Vol] 105 mmol/L Normal 97-105 [facility] Comment on above: Order Comment: Speci men Type: BLOOD SPECIMENOrdering Facility: [facility] Address: [address] [place] [address] Performed By: #### 2 4321-2 ####CERES[facility] LABORATORYCLIA [id number] [place] [address] [place] CO2 [Moles/Vol] 22 mmol/L Normal 22-30 [facility] Comment on above: Order Comment: Speci men Type: BLOOD SPECIMENOrdering Facility: [facility] Address: [address] [place] [address] Performed By: #### 2 4321-2 ####CERES[facility] LABORATORYCLIA [id number] [place] [address] [place] Creatinine [Mass/Vol] 0.61 mg/dL Normal 0.58-0.96 [facility] Comment on above: Order Comment: Speci men Type: BLOOD SPECIMENOrdering Facility: [facility] Address: [address] [place] [address] Performed By: #### 2 4321-2 ####CERES[facility] LABORATORYCLIA [id number] [place] [address] [place] Creatinine and Glomerular filtration rate.predicted panel (S/P/Bld) 121 mL/min/1.73m??? Normal >=60 [facility] Comment on above: Order Comment: Geraldo marrero Type: BLOOD SPECIMENOrdering Facility: [facility] Address: [address] [place] [address] Result Comment: Jessica mated Glomerular Filtration Rate [...] actual GFR. Performed By: #### 2 4321-2 ####C[facility] LABORATORYCLIA [id number] [place] [address] [place] Glucose [Mass/Vol] 115 mg/dL High 74-99 [facility] Comment on above: Order Comment: Geraldo marrero Type: BLOOD SPECIMENOrdering Facility: [facility] Address: [address] Result Comment: The [place] Diabetes Association (ADA) provides guidance for cutoff [...] Standards of Medical Care in Diabetes 2016, [place] Diabetes Association. Diabetes Care. 2016.39(Suppl 1). Performed By: #### 2 4321-2 ####C[facility] LABORATORYCLIA [id number] [place] [address] [place] Potassium [Moles/Vol] 4.2 mmol/L Normal 3.7-5.1 [facility] Comment on above: Order Comment: Geraldo marrero Type: BLOOD SPECIMENOrdering Facility: [facility] Address: [address] [place] [address] Performed By: #### 2 4321-2 ####C[facility] LABORATORYCLIA [id number] [place] [address] [place] Sodium [Moles/Vol] 137 mmol/L Normal 136-144 [facility] Comment on above: Order Comment: Speci men Type: BLOOD SPECIMENOrdering Facility: [facility] Address: [address] [place] [address] Performed By: #### 2 4321-2 ####C[facility] LABORATORYCLIA [id number] [address] [place] Urea nitrogen [Mass/Vol] 6 mg/dL Low 7-21 [facility] Comment on above: Order Comment: Speci men Type: BLOOD SPECIMENOrdering Facility: [facility] Address: [address] [place] [address] Performed By: #### 2 4321-2 ####CERES[facility] LABORATORYCLIA [id number] [address] [place] CASE MGT INIT ASSESon 2022 CASE MGT INIT ASS Normal [facility] CBC panel Auto (Bld)on 11-18 Erythrocyte distribution width (RBC) [Ratio] 13.0 % Normal 11.5-15.0 [facility] Comment on above: Order Comment: Speci men Type: BLOOD SPECIMENOrdering Facility: [facility] Address: [address] [place] [address] Performed By: #### 5 8410-2 ####C[facility] LABORATORYCLIA [id number] [address] [facility] Hematocrit (Bld) [Volume fraction] 35.7 % Low 36.0-46.0 [facility] Comment on above: Order Comment: Speci men Type: BLOOD SPECIMENOrdering Facility: [facility] Address: [address] [place] [address] Performed By: #### 5 8410-2 ####C[facility] LABORATORYCLIA [id number] [address] [place] Hemoglobin (Bld) [Mass/Vol] 12.3 g/dL Normal 11.5-15.5 [facility] Comment on above: Order Comment: Speci men Type: BLOOD SPECIMENOrdering Facility: [facility] Address: [address] [place] [address] Performed By: #### 5 8410-2 ####OS[facility] LABORATORYCLIA [id number] [address] STATES [facility] MCH (RBC) [Entitic mass] 31.1 pg Normal 26.0-34.0 [facility] Comment on above: Order Comment: Speci men Type: BLOOD SPECIMENOrdering Facility: [facility] Address: [address] [place] [address] Performed By: #### 5 8410-2 ####[facility] LABORATORYCLIA [id number] [address] MCHC (RBC) [Mass/Vol] 34.5 g/dL Normal 30.5-36.0 [facility] Comment on above: Order Comment: Speci men Type: BLOOD SPECIMENOrdering Facility: [facility] Address: [address] [place] [address] Performed By: #### 5 8410-2 ####OS[facility] LABORATORYCLIA [id number] [address] STATES [facility] MCV (RBC) [Entitic vol] 90.2 fL Normal 80.0-100.0 [facility] Comment on above: Order Comment: Speci men Type: BLOOD SPECIMENOrdering Facility: [facility] Address: [address] [place] [address] Performed By: #### 5 8410-2 ####[facility] LABORATORYCLIA [id number] [address] Nucleated RBC (Bld) [#/Vol] 10*3/uL Normal <0.01 [facility] Comment on above: Order Comment: Speci men Type: BLOOD SPECIMENOrdering Facility: [facility] Address: [address] [place] [address] Performed By: #### 5 8410-2 ####C[facility] LABORATORYCLIA [id number] [place] [id number] [place] Platelet mean volume (Bld) [Entitic vol] 11.2 fL Normal 9.0-12.7 [facility] Comment on above: Order Comment: Speci men Type: BLOOD SPECIMENOrdering Facility: [facility] Address: [address] [place] [address] Performed By: #### 5 8410-2 ####C[facility] LABORATORYCLIA [id number] [place] [address] [place] Platelets (Bld) [#/Vol] 214 10*3/uL Normal 150-400 [facility] Comment on above: Order Comment: Speci men Type: BLOOD SPECIMENOrdering Facility: [facility] Address: [address] [place] [address] Performed By: #### 5 8410-2 ####[facility] LABORATORYCLIA [id number] [place] [address] [place] RBC (Bld) [#/Vol] 3.96 10*6/uL Normal 3.90-5.20 [facility] Comment on above: Order Comment: Speci men Type: BLOOD SPECIMENOrdering Facility: [facility] Address: [address] [place] [address] Performed By: #### 5 8410-2 ####[facility] LABORATORYCLIA [id number] [place] [address] [place] WBC (Bld) [#/Vol] 3.48 10*3/uL Low 3.70-11.00 [facility] Comment on above: Order Comment: Speci men Type: BLOOD SPECIMENOrdering Facility: [facility] Address: [address] [place] [address] Performed By: #### 5 8410-2 ####C[facility] LABORATORYCLIA [id number] [address] [place] NURSING PROGon 11-18-2022 NURSING PROG Normal [facility] Urinalysis complete panel (U )on 11-18-2022 Bacteria LM.HPF (Urine sed) [#/Area] Rare Abnormal None Seen [facility] Comment on above: Order Comment: Speci men Type: URINE SPECIMENOrdering Facility: [facility] Address: [address] [place] [address] Performed By: #### 2 4356-8 ####[facility] LABORATORYCLIA [id number] [place] [address] [place] Bilirubin Ql (U) Negative Normal Negative [facility] Comment on above: Order Comment: Speci men Type: URINE SPECIMENOrdering Facility: [facility] Address: [address] [place] [address] Performed By: #### 2 4356-8 ####[facility] LABORATORYCLIA [id number] [address] [place] Clarity (Unsp spec) Clear Normal Clear [facility] Comment on above: Order Comment: Speci men Type: URINE SPECIMENOrdering Facility: [facility] Address: [address] [place] [address] Performed By: #### 2 4356-8 ####[facility] LABORATORYCLIA [id number] [place] [address] [place] Color (U) Colorless Normal Yellow [facility] Comment on above: Order Comment: Speci men Type: URINE SPECIMENOrdering Facility: [facility] Address: [address] [place] [address] Performed By: #### 2 4356-8 ####[facility] LABORATORYCLIA [id number] [address] [place] Epithelial cells LM.HPF (Urine sed) [#/Area] Few Normal [facility] Comment on above: Order Comment: Speci men Type: URINE SPECIMENOrdering Facility: [facility] Address: [address] [place] [address] Performed By: #### 2 4356-8 ####[facility] LABORATORYCLIA [id number] [place] [address] [place] Glucose Test strip (U) [Mass/Vol] Negative Normal Trace, Negative [facility] Comment on above: Order Comment: Speci men Type: URINE SPECIMENOrdering Facility: [facility] Address: [address] [place] [address] Performed By: #### 2 4356-8 ####[facility] LABORATORYCLIA [id number] [place] [address] [place] Hemoglobin Ql (U) Negative Normal Negative, Trace [facility] Comment on above: Order Comment: Speci men Type: URINE SPECIMENOrdering Facility: [facility] Address: [address] [place] [address] Performed By: #### 2 4356-8 ####[facility] LABORATORYCLIA [id number] [place] [address] [place] Ketones Ql (U) Negative Normal Negative, Trace [facility] Comment on above: Order Comment: Speci men Type: URINE SPECIMENOrdering Facility: [facility] Address: [address] [place] [address] Performed By: #### 2 4356-8 ####[facility] LABORATORYCLIA [id number] [place] [address] [place] Leukocyte esterase Test strip Ql (U) Negative Normal Negative, 25 Patito/uL [facility] Comment on above: Order Comment: Speci men Type: URINE SPECIMENOrdering Facility: [facility] Address: [address] [place] [address] Performed By: #### 2 4356-8 ####[facility] LABORATORYCLIA [id number] [place] [address] [place] Nitrite Ql (U) Negative Normal Negative [facility] Comment on above: Order Comment: Speci men Type: URINE SPECIMENOrdering Facility: [facility] Address: [address] [place] [address] Performed By: #### 2 4356-8 ####[facility] LABORATORYCLIA [id number] [address] [place] pH (U) 7.5 [pH] Normal 5.0-8.0 [facility] Comment on above: Order Comment: Speci men Type: URINE SPECIMENOrdering Facility: [facility] Address: [address] [place] [address] Performed By: #### 2 4356-8 ####[facility] LABORATORYCLIA [id number] [place] [address] [place] [facility] Protein (U) [Mass/Vol] Negative Normal Trace, Negative [facility] Comment on above: Order Comment: Speci men Type: URINE SPECIMENOrdering Facility: [facility] Address: [address] [place] [address] Performed By: #### 2 4356-8 ####[facility] LABORATORYCLIA [id number] [address] [place] RBC LM.HPF (Urine sed) [#/Area] 0-3 /HPF Normal 0-3 /HPF [facility] Comment on above: Order Comment: Speci men Type: URINE SPECIMENOrdering Facility: [facility] Address: [address] [place] [address] Performed By: #### 2 4356-8 ####[facility] LABORATORYCLIA [id number] [address] [place] Specific gravity (U) [Rel density] 1.007 Normal 1.005-1.030 [facility] Comment on above: Order Comment: Speci men Type: URINE SPECIMENOrdering Facility: [facility] Address: [address] [place] [address] Performed By: #### 2 4356-8 ####[facility] LABORATORYCLIA [id number] [address] [place] Urobilinogen Ql (U) Negative Normal Negative [facility] Comment on above: Order Comment: Speci men Type: URINE SPECIMENOrdering Facility: [facility] Address: [address] [place] [address] Performed By: #### 2 4356-8 ####[facility] LABORATORYCLIA [id number] [address] [place] WBC LM.HPF (Urine sed) [#/Area] 0-5 /HPF Normal 0-5 /HPF [facility] Comment on above: Order Comment: Speci men Type: URINE SPECIMENOrdering Facility: [facility] Address: [address] [place] [address] Performed By: #### 2 4356-8 ####[facility] LABORATORYCLIA [id number] [place] [address] [place] Bilirubin Ql (U) Negative Normal Negative [facility] Comment on above: Order Comment: Speci men Type: URINE SPECIMENOrdering Facility: [facility] Address: [address] [place] [address] Performed By: #### 2 4356-8 ####[facility] LABORATORYCLIA [id number] [place] [address] [place] Clarity (Unsp spec) Clear Normal Clear [facility] Comment on above: Order Comment: Speci men Type: URINE SPECIMENOrdering Facility: [facility] Address: [address] [place] [address] Performed By: #### 2 4356-8 ####[facility] LABORATORYCLIA [id number] [place] [address] [place] Color (U) Colorless Normal Yellow [facility] Comment on above: Order Comment: Speci men Type: URINE SPECIMENOrdering Facility: [facility] Address: [address] [place] [address] Performed By: #### 2 4356-8 ####[facility] LABORATORYCLIA [id number] [place] [address] [place] Epithelial cells LM.HPF (Urine sed) [#/Area] Few Normal [facility] Comment on above: Order Comment: Speci men Type: URINE SPECIMENOrdering Facility: [facility] Address: [address] [place] [address] Performed By: #### 2 4356-8 ####[facility] LABORATORYCLIA [id number] [place] [address] [place] Glucose Test strip (U) [Mass/Vol] Negative Normal Trace, Negative [facility] Comment on above: Order Comment: Speci men Type: URINE SPECIMENOrdering Facility: [facility] Address: [address] [place] [address] Performed By: #### 2 4356-8 ####[facility] LABORATORYCLIA [id number] [place] [address] [place] Hemoglobin Ql (U) Negative Normal Negative, Trace Fa [facility] Comment on above: Order Comment: Speci men Type: URINE SPECIMENOrdering Facility: [facility] Address: [address] [place] [address] Performed By: #### 2 4356-8 ####[facility] LABORATORYCLIA [id number] [place] [address] [place] Ketones Ql (U) Negative Normal Negative, Trace [facility] Comment on above: Order Comment: Speci men Type: URINE SPECIMENOrdering Facility: [facility] Address: [address] [place] [address] Performed By: #### 2 4356-8 ####[facility] LABORATORYCLIA [id number] [address] [place] Leukocyte esterase Test strip Ql (U) Negative Normal Negative, 25 Patito/uL [facility] Comment on above: Order Comment: Speci men Type: URINE SPECIMENOrdering Facility: [facility] Address: [address] [place] [address] Performed By: #### 2 4356-8 ####[facility] LABORATORYCLIA [id number] [address] [address] [place] Nitrite Ql (U) Negative Normal Negative [facility] Comment on above: Order Comment: Speci men Type: URINE SPECIMENOrdering Facility: [facility] Address: [address] [address] Performed By: #### 2 4356-8 ####[facility] LABORATORYCLIA [id number] [address] [place] pH (U) 7.5 [pH] Normal 5.0-8.0 [facility] Comment on above: Order Comment: Speci men Type: URINE SPECIMENOrdering Facility: [facility] Address: [address] [place] [address] Performed By: #### 2 4356-8 ####[facility] LABORATORYCLIA [id number] [place] [address] [place] Protein (U) [Mass/Vol] Negative Normal Trace, Negative [facility] Comment on above: Order Comment: Speci men Type: URINE SPECIMENOrdering Facility: [facility] Address: [address] [place] [address] Performed By: #### 2 4356-8 ####[facility] LABORATORYCLIA [id number] [place] [address] [place] RBC LM.HPF (Urine sed) [#/Area] 0-3 /HPF Normal 0-3 /HPF [facility] Comment on above: Order Comment: Speci men Type: URINE SPECIMENOrdering Facility: [facility] Address: [address] [place] [address] Performed By: #### 2 4356-8 ####[facility] LABORATORYCLIA [id number] [address] Specific gravity (U) [Rel density] 1.006 Normal 1.005-1.030 [facility] Comment on above: Order Comment: Speci men Type: URINE SPECIMENOrdering Facility: [facility] Address: [address] [place] [address] Performed By: #### 2 4356-8 ####[facility] LABORATORYCLIA [id number] [address] [place] Urobilinogen Ql (U) Negative Normal Negative [facility] Comment on above: Order Comment: Speci men Type: URINE SPECIMENOrdering Facility: [facility] Address: [address] [place] [address] Performed By: #### 2 4356-8 ####[facility] LABORATORYCLIA [id number] [address] [place] WBC LM.HPF (Urine sed) [#/Area] 0-5 /HPF Normal 0-5 /HPF [facility] Comment on above: Order Comment: Speci men Type: URINE SPECIMENOrdering Facility: [facility] Address: [address] [address] Performed By: #### 2 4356-8 ####[facility] LABORATORYCLIA [id number] [place] [id number] [place] ALLIED HEALTHon 11-17-2022 ALLIED HEALTH Normal [facility] CBC W Auto Differential pane l (Bld)on 11-17-2022 Basophils (Bld) [#/Vol] 0.03 10*3/uL Normal <0.11 [facility] Comment on above: Order Comment: Speci men Type: BLOOD SPECIMENOrdering Facility: [facility] Address: [address] [address] Performed By: #### 5 7021-8 ####[facility] LABORATORYCLIA [id number] [place] [address] [place] Basophils/100 WBC (Bld) 0.7 % Normal [facility] Comment on above: Order Comment: Speci men Type: BLOOD SPECIMENOrdering Facility: [facility] Address: [address] [place] [address] Performed By: #### 5 7021-8 ####[facility] LABORATORYCLIA [id number] [place] [address] [place] Differential cell count method Nom (Bld) Auto Normal [facility] Comment on above: Order Comment: Speci men Type: BLOOD SPECIMENOrdering Facility: [facility] Address: [address] [address] Performed By: #### 5 7021-8 ####[facility] LABORATORYCLIA [id number] [place] [address] [place] Eosinophils (Bld) [#/Vol] 0.07 10*3/uL Normal <0.46 [facility] Comment on above: Order Comment: Speci men Type: BLOOD SPECIMENOrdering Facility: [facility] Address: [address] [address] Performed By: #### 5 7021-8 ####[facility] LABORATORYCLIA [id number] [place] [address] [place] Eosinophils/100 WBC (Bld) 1.7 % Normal [facility] Comment on above: Order Comment: Speci men Type: BLOOD SPECIMENOrdering Facility: [facility] Address: [address] [place] [address] Performed By: #### 5 7021-8 ####[facility] LABORATORYCLIA [id number] [place] [address] [place] Erythrocyte distribution width (RBC) [Ratio] 13.2 % Normal 11.5-15.0 [facility] Comment on above: Order Comment: Speci men Type: BLOOD SPECIMENOrdering Facility: [facility] Address: [address] [place] [address] Performed By: #### 5 7021-8 ####[facility] LABORATORYCLIA [id number] [place] [address] [place] Hematocrit (Bld) [Volume fraction] 37.2 % Normal 36.0-46.0 [facility] Comment on above: Order Comment: Speci men Type: BLOOD SPECIMENOrdering Facility: [facility] Address: [address] [address] Performed By: #### 5 7021-8 ####[facility] LABORATORYCLIA [id number] [place] [address] [place] Hemoglobin (Bld) [Mass/Vol] 12.9 g/dL Normal 11.5-15.5 [facility] Comment on above: Order Comment: Speci men Type: BLOOD SPECIMENOrdering Facility: [facility] Address: [address] [address] Performed By: #### 5 7021-8 ####[facility] LABORATORYCLIA [id number] [place] [id number] [place] Immature granulocytes (Bld) [#/Vol] 10*3/uL Normal <0.10 [facility] Comment on above: Order Comment: Speci men Type: BLOOD SPECIMENOrdering Facility: [facility] Address: [address] [place] [address] Performed By: #### 5 7021-8 ####[facility] LABORATORYCLIA [id number] [place] [address] [place] Immature granulocytes/100 WBC (Bld) 0.2 % Normal [facility] Comment on above: Order Comment: Speci men Type: BLOOD SPECIMENOrdering Facility: [facility] Address: [address] [place] [address] Performed By: #### 5 7021-8 ####[facility] LABORATORYCLIA [id number] [place] [address] [place] Lymphocytes (Bld) [#/Vol] 1.81 10*3/uL Normal 1.00-4.00 [facility] Comment on above: Order Comment: Speci men Type: BLOOD SPECIMENOrdering Facility: [facility] Address: [address] [place] [address] Performed By: #### 5 7021-8 ####[facility] LABORATORYCLIA [id number] [address] Lymphocytes/100 WBC (Bld) 44.6 % Normal [facility] Comment on above: Order Comment: Speci men Type: BLOOD SPECIMENOrdering Facility: [facility] Address: [address] [place] [address] Performed By: #### 5 7021-8 ####[facility] LABORATORYCLIA [id number] [place] [address] [place] MCH (RBC) [Entitic mass] 31.1 pg Normal 26.0-34.0 [facility] Comment on above: Order Comment: Speci men Type: BLOOD SPECIMENOrdering Facility: [facility] Address: [address] [place] [address] Performed By: #### 5 7021-8 ####[facility] LABORATORYCLIA [id number] [address] [place] MCHC (RBC) [Mass/Vol] 34.7 g/dL Normal 30.5-36.0 [facility] Comment on above: Order Comment: Speci men Type: BLOOD SPECIMENOrdering Facility: [facility] Address: [address] [place] [address] Performed By: #### 5 7021-8 ####[facility] LABORATORYCLIA [id number] [place] [address] [place] MCV (RBC) [Entitic vol] 89.6 fL Normal 80.0-100.0 [facility] Comment on above: Order Comment: Speci men Type: BLOOD SPECIMENOrdering Facility: [facility] Address: [address] [address] Performed By: #### 5 7021-8 ####[facility] LABORATORYCLIA [id number] [place] [address] [place] Monocytes (Bld) [#/Vol] 0.21 10*3/uL Normal <0.87 [facility] Comment on above: Order Comment: Speci men Type: BLOOD SPECIMENOrdering Facility: [facility] Address: [address] [place] [address] Performed By: #### 5 7021-8 ####[facility] LABORATORYCLIA [id number] [place] [address] [place] Monocytes/100 WBC (Bld) 5.2 % Normal [facility] Comment on above: Order Comment: Speci men Type: BLOOD SPECIMENOrdering Facility: [facility] Address: [address] [place] [address] Performed By: #### 5 7021-8 ####[facility] LABORATORYCLIA [id number] [place] [address] [place] Neutrophils (Bld) [#/Vol] 1.93 10*3/uL Normal 1.45-7.50 [facility] Comment on above: Order Comment: Speci men Type: BLOOD SPECIMENOrdering Facility: [facility] Address: [address] [place] [address] Performed By: #### 5 7021-8 ####[facility] LABORATORYCLIA [id number] [address] [place] Neutrophils/100 WBC (Bld) 47.6 % Normal [facility] Comment on above: Order Comment: Speci men Type: BLOOD SPECIMENOrdering Facility: [facility] Address: [address] [address] Performed By: #### 5 7021-8 ####[facility] LABORATORYCLIA [id number] [place] [address] [place] Nucleated RBC (Bld) [#/Vol] 10*3/uL Normal <0.01 [facility] Comment on above: Order Comment: Speci men Type: BLOOD SPECIMENOrdering Facility: [facility] Address: [address] [address] Performed By: #### 5 7021-8 ####[facility] LABORATORYCLIA [id number] [place] [address] [place] Nucleated RBC/100 WBC (Bld) [Ratio] 0.0 /100 WBC Normal [facility] Comment on above: Order Comment: Speci men Type: BLOOD SPECIMENOrdering Facility: [facility] Address: [address] [address] Performed By: #### 5 7021-8 ####[facility] LABORATORYCLIA [id number] [place] [address] [place] Platelet mean volume (Bld) [Entitic vol] 11.9 fL Normal 9.0-12.7 [facility] Comment on above: Order Comment: Speci men Type: BLOOD SPECIMENOrdering Facility: [facility] Address: [address] [address] Performed By: #### 5 7021-8 ####[facility] LABORATORYCLIA [id number] [place] [address] [place] Platelets (Bld) [#/Vol] 85 10*3/uL Low 150-400 [facility] Comment on above: Order Comment: Speci men Type: BLOOD SPECIMENOrdering Facility: [facility] Address: [address] [place] [address] Result Comment: Resu lts may be inaccurate due to the presence of microclots. Performed By: #### 5 7021-8 ####[facility] LABORATORYCLIA [id number] [place] [address] [place] RBC (Bld) [#/Vol] 4.15 10*6/uL Normal 3.90-5.20 [facility] Comment on above: Order Comment: Speci men Type: BLOOD SPECIMENOrdering Facility: [facility] Address: [address] [address] Performed By: #### 5 7021-8 ####[facility] LABORATORYCLIA [id number] [place] [address] [place] WBC (Bld) [#/Vol] 4.06 10*3/uL Normal 3.70-11.00 [facility] Comment on above: Order Comment: Speci men Type: BLOOD SPECIMENOrdering Facility: [facility] Address: [address] [place] [address] Result Comment: Resu lts may be inaccurate due to the presence of microclots. Performed By: #### 5 7021-8 ####[facility] LABORATORYCLIA [id number] [address] [place] CONSULTon 11-17-2022 CONSULT Normal [facility] CT ABD/PEL W IVCONon 023 CT ABD/PEL W IVCON Normal [facility] Comprehensive metabolic 2000 panelon 11-17-2022 Albumin [Mass/Vol] 4.2 g/dL Normal 3.9-4.9 [facility] Comment on above: Order Comment: Speci men Type: BLOOD SPECIMENOrdering Facility: [facility] Address: [address] [address] Performed By: #### 3 040-3, 02576-1 ####[facility] LABORATORYCLIA [id number] [place] [id number] [place] ALP [Catalytic activity/Vol] 69 U/L Normal 34-123 [facility] Comment on above: Order Comment: Speci men Type: BLOOD SPECIMENOrdering Facility: [facility] Address: [address] [place] [address] Performed By: #### 3 040-3, 50748-3 ####[facility] LABORATORYCLIA [id number] [place] [address] [place] ALT [Catalytic activity/Vol] 22 U/L Normal 7-38 [facility] Comment on above: Order Comment: Speci men Type: BLOOD SPECIMENOrdering Facility: [facility] Address: [address] [address] Performed By: #### 3 -3, 59976-6 ####[facility] LABORATORYCLIA [id number] [place] [address] [place] Anion gap [Moles/Vol] 9 mmol/L Normal 9-18 [facility] Comment on above: Order Comment: Speci men Type: BLOOD SPECIMENOrdering Facility: [facility] Address: [address] [address] Performed By: #### 3 -3, ####[facility] LABORATORYCLIA [id number] [place] [address] [place] AST [Catalytic activity/Vol] 40 U/L High 13-35 [facility] Comment on above: Order Comment: Speci men Type: BLOOD SPECIMENOrdering Facility: [facility] Address: [address] [address] Performed By: #### 3 3, 12096-8 ####[facility] LABORATORYCLIA [id number] [place] [address] [place] Bilirubin [Mass/Vol] 0.4 mg/dL Normal 0.2-1.3 [facility] Comment on above: Order Comment: Speci men Type: BLOOD SPECIMENOrdering Facility: [facility] Address: [address] [address] Performed By: #### 3 -3, 43903-5 ####[facility] LABORATORYCLIA [id number] [place] [address] [place] Calcium [Mass/Vol] 8.8 mg/dL Normal 8.5-10.2 [facility] Comment on above: Order Comment: Speci men Type: BLOOD SPECIMENOrdering Facility: [facility] Address: [address] [address] Performed By: #### 3 -3, 64689-5 ####[facility] LABORATORYCLIA [id number] [address] Chloride [Moles/Vol] 107 mmol/L High 97-105 [facility] Comment on above: Order Comment: Speci men Type: BLOOD SPECIMENOrdering Facility: [facility] Address: [address] [address] Performed By: #### 3 040-3, 30042-2 ####[facility] LABORATORYCLIA [id number] [place] [address] [facility] CO2 [Moles/Vol] 23 mmol/L Normal 22-30 [facility] Comment on above: Order Comment: Speci men Type: BLOOD SPECIMENOrdering Facility: [facility] Address: [address] [place] [address] Performed By: #### 3 040-3, ####[facility] LABORATORYCLIA [id number] [address] Creatinine [Mass/Vol] 0.75 mg/dL Normal 0.58-0.96 [facility] Comment on above: Order Comment: Speci men Type: BLOOD SPECIMENOrdering Facility: [facility] Address: [address] [place] [address] Performed By: #### 3 040-3, ####[facility] LABORATORYCLIA [id number] [address] Creatinine and Glomerular filtration rate.predicted panel (S/P/Bld) 108 mL/min/1.73m??? Normal >=60 [facility] Comment on above: Order Comment: Speci men Type: BLOOD SPECIMENOrdering Facility: [facility] Address: [address] [place] [address] Result Comment: Jessica mated Glomerular Filtration Rate [...] reflect actual GFR. Performed By: #### 3 ####[facility] LABORATORYCLIA [id number] [place] [address] [place] Glucose [Mass/Vol] 80 mg/dL Normal 74-99 [facility] Comment on above: Order Comment: Speci men Type: BLOOD SPECIMENOrdering Facility: [facility] Address: [address] [place] [address] Result Comment: The [place] Diabetes Association (ADA) provides guidance for cutoff [...] Standards of Medical Care in Diabetes 2016, [place] Diabetes Association. Diabetes Care. 2016.39(Suppl 1). Performed By: #### 3 - ####[facility] LABORATORYCLIA [id number] [place] [address] [place] Potassium [Moles/Vol] 4.3 mmol/L Normal 3.7-5.1 [facility] Comment on above: Order Comment: Speci men Type: BLOOD SPECIMENOrdering Facility: [facility] Address: [address] [address] Performed By: #### 3 - ####[facility] LABORATORYCLIA [id number] [place] [address] [place] Protein [Mass/Vol] 6.9 g/dL Normal 6.3-8.0 [facility] Comment on above: Order Comment: Speci men Type: BLOOD SPECIMENOrdering Facility: [facility] Address: [address] [address] Performed By: #### 3 -, 56348-8 ####[facility] LABORATORYCLIA [id number] [address] Sodium [Moles/Vol] 139 mmol/L Normal 136-144 [facility] Comment on above: Order Comment: Speci men Type: BLOOD SPECIMENOrdering Facility: [facility] Address: [address] [place] [address] Performed By: #### 3 040-3, 86022-3 ####[facility] LABORATORYCLIA [id number] [place] [address] [place] [facility] Urea nitrogen [Mass/Vol] 8 mg/dL Normal 7-21 [facility] Comment on above: Order Comment: Speci men Type: BLOOD SPECIMENOrdering Facility: [facility] Address: [address] [place] [address] Performed By: #### 3 040-3, 92675-9 ####[facility] LABORATORYCLIA [id number] [place] [address] [facility] ED NOTEon 11-17-2022 ED NOTE HNO ID: [id number] Author: Jayla Jean, DEE Service: ? Author Type: Registered Nurse Type: ED Notes Filed: 11/17/2022 2:00 PM Note Text: Pt sts symptoms she feels like she is going to pass out in WR. Vitals rechecked and DS done Normal [facility] ED PROV NOTEon 11-17-2022 ED PROV NOTE Normal [facility] ED PROV NOTE Normal [facility] ED Triage Noteon 11-17-2022 ED Triage Note Normal [facility] Lipase SerPl-cCncon 11-18-19 23 Lipase [Catalytic activity/Vol] 26 U/L Normal 16-61 [facility] Comment on above: Order Comment: Speci men Type: BLOOD SPECIMENOrdering Facility: [facility] Address: [address] [place] [address] Performed By: #### 3 040-3, 03961-3 ####[facility] LABORATORYCLIA [id number] [place] [id number] [facility] NURSING PROGon 11-17-2022 NURSING PROG Normal [facility] NURSING PROG Normal [facility] Ambulatory Visit Summaryon 1 Ambulatory Visit Summary Normal [facility] Family Medicine Office/Clini c Noteon 11-16-2022 Family Medicine Office/Clinic Note Normal [facility] Comment on above: Result Comment: Elec tronically Signed By: Jaquan Paula\Date and Time Signed: 11/16/22 10:42 EDT Basic metabolic 2000 panelon 11-12-2022 Anion gap [Moles/Vol] 12 mmol/L Normal 9-18 [facility] Comment on above: Order Comment: Speci men Type: BLOOD SPECIMENOrdering Facility: [facility] Address: [address] [address] Performed By: #### 2 4321-2 ####[facility] LABORATORYCLIA [id number] [place] [address] [place] Calcium [Mass/Vol] 8.8 mg/dL Normal 8.5-10.2 [facility] Comment on above: Order Comment: Speci men Type: BLOOD SPECIMENOrdering Facility: [facility] Address: [address] [address] Performed By: #### 2 4321-2 ####[facility] LABORATORYCLIA [id number] [place] [address] [place] Chloride [Moles/Vol] 104 mmol/L Normal 97-105 [facility] Comment on above: Order Comment: Speci men Type: BLOOD SPECIMENOrdering Facility: [facility] Address: [address] [address] Performed By: #### 2 4321-2 ####[facility] LABORATORYCLIA [id number] [place] [address] [place] CO2 [Moles/Vol] 20 mmol/L Low 22-30 [facility] Comment on above: Order Comment: Speci men Type: BLOOD SPECIMENOrdering Facility: [facility] Address: [address] [address] Performed By: #### 2 4321-2 ####[facility] LABORATORYCLIA [id number] [place] [address] [place] Creatinine [Mass/Vol] 0.62 mg/dL Normal 0.58-0.96 [facility] Comment on above: Order Comment: Geraldo marrero Type: BLOOD SPECIMENOrdering Facility: [facility] Address: [address] [facility] [place] [address] Performed By: #### 2 4321-2 ####[facility] LABORATORYCLIA [id number] [place] [id number] [place] Creatinine and Glomerular filtration rate.predicted panel (S/P/Bld) 121 mL/min/1.73m??? Normal >=60 [facility] Comment on above: Order Comment: Geraldo marrero Type: BLOOD SPECIMENOrdering Facility: [facility] Address: [address] [place] [address] Result Comment: Jessica mated Glomerular Filtration Rate [...] actual GFR. Performed By: #### 2 4321-2 ####[facility] LABORATORYCLIA [id number] [place] [address] [place] Glucose [Mass/Vol] 102 mg/dL High 74-99 [facility] Comment on above: Order Comment: Geraldo elida Type: BLOOD SPECIMENOrdering Facility: [facility] Address: [address] [place] [address] Result Comment: The [place] Diabetes Association (ADA) provides guidance for cutoff [...] Standards of Medical Care in Diabetes 2016, [place] Diabetes [employer]. Diabetes Care. 2016.39(Suppl 1). Performed By: #### 2 4321-2 ####[facility] LABORATORYCLIA [id number] [place] [address] [place] Potassium [Moles/Vol] 4.2 mmol/L Normal 3.7-5.1 [facility] Comment on above: Order Comment: Speci men Type: BLOOD SPECIMENOrdering Facility: [facility] Address: [address] [place] [address] Performed By: #### 2 4321-2 ####[facility] LABORATORYCLIA [id number] [place] [address] [place] Sodium [Moles/Vol] 136 mmol/L Normal 136-144 [facility] Comment on above: Order Comment: Speci men Type: BLOOD SPECIMENOrdering Facility: [facility] Address: [address] [place] [address] Performed By: #### 2 4321-2 ####[facility] LABORATORYCLIA [id number] [place] [address] [place] Urea nitrogen [Mass/Vol] 8 mg/dL Normal 7-21 [facility] Comment on above: Order Comment: Speci men Type: BLOOD SPECIMENOrdering Facility: [facility] Address: [address] [place] [address] Performed By: #### 2 4321-2 ####[facility] LABORATORYCLIA [id number] [place] [address] [place] CBC W Auto Differential pane l (Bld)on 11-12-2022 Basophils (Bld) [#/Vol] 10*3/uL Normal <0.11 [facility] Comment on above: Order Comment: Speci men Type: BLOOD SPECIMENOrdering Facility: [facility] Address: [address] [place] [address] Performed By: #### 5 7021-8 ####[facility] LABORATORYCLIA [id number] [address] [place] Basophils/100 WBC (Bld) 0.2 % Normal [facility] Comment on above: Order Comment: Speci men Type: BLOOD SPECIMENOrdering Facility: [facility] Address: [address] [place] [address] Performed By: #### 5 7021-8 ####[facility] LABORATORYCLIA [id number] [address] [place] Differential cell count method Nom (Bld) Auto Normal [facility] Comment on above: Order Comment: Speci men Type: BLOOD SPECIMENOrdering Facility: [facility] Address: [address] [address] Performed By: #### 5 7021-8 ####[facility] LABORATORYCLIA [id number] [place] [address] [place] Eosinophils (Bld) [#/Vol] 10*3/uL Normal <0.46 [facility] Comment on above: Order Comment: Speci men Type: BLOOD SPECIMENOrdering Facility: [facility] Address: [address] [place] [address] Performed By: #### 5 7021-8 ####[facility] LABORATORYCLIA [id number] [address] [place] Eosinophils/100 WBC (Bld) 0.0 % Normal [facility] Comment on above: Order Comment: Speci men Type: BLOOD SPECIMENOrdering Facility: [facility] Address: [address] [place] [address] Performed By: #### 5 7021-8 ####[facility] LABORATORYCLIA [id number] [address] [place] Erythrocyte distribution width (RBC) [Ratio] 12.6 % Normal 11.5-15.0 [facility] Comment on above: Order Comment: Speci men Type: BLOOD SPECIMENOrdering Facility: [facility] Address: [address] [place] [address] Performed By: #### 5 7021-8 ####[facility] LABORATORYCLIA [id number] [address] [place] Hematocrit (Bld) [Volume fraction] 36.9 % Normal 36.0-46.0 [facility] Comment on above: Order Comment: Speci men Type: BLOOD SPECIMENOrdering Facility: [facility] Address: [address] [address] Performed By: #### 5 7021-8 ####[facility] LABORATORYCLIA [id number] [place] [address] [place] Hemoglobin (Bld) [Mass/Vol] 12.8 g/dL Normal 11.5-15.5 [facility] Comment on above: Order Comment: Speci men Type: BLOOD SPECIMENOrdering Facility: [facility] Address: [address] [address] Performed By: #### 5 7021-8 ####[facility] LABORATORYCLIA [id number] [place] [address] [place] Immature granulocytes (Bld) [#/Vol] 0.08 10*3/uL Normal <0.10 [facility] Comment on above: Order Comment: Speci men Type: BLOOD SPECIMENOrdering Facility: [facility] Address: [address] [address] Performed By: #### 5 7021-8 ####[facility] LABORATORYCLIA [id number] [place] [address] [place] Immature granulocytes/100 WBC (Bld) 0.8 % Normal [facility] Comment on above: Order Comment: Speci men Type: BLOOD SPECIMENOrdering Facility: [facility] Address: [address] [address] Performed By: #### 5 7021-8 ####[facility] LABORATORYCLIA [id number] [place] [address] [place] Lymphocytes (Bld) [#/Vol] 1.23 10*3/uL Normal 1.00-4.00 [facility] Comment on above: Order Comment: Speci men Type: BLOOD SPECIMENOrdering Facility: [facility] Address: [address] [address] Performed By: #### 5 7021-8 ####[facility] LABORATORYCLIA [id number] [place] [address] [place] Lymphocytes/100 WBC (Bld) 12.8 % Normal [facility] Comment on above: Order Comment: Speci men Type: BLOOD SPECIMENOrdering Facility: [facility] Address: [address] [address] Performed By: #### 5 7021-8 ####[facility] LABORATORYCLIA [id number] [address] STATES [facility] MCH (RBC) [Entitic mass] 30.4 pg Normal 26.0-34.0 [facility] Comment on above: Order Comment: Speci men Type: BLOOD SPECIMENOrdering Facility: [facility] Address: [address] [address] Performed By: #### 5 7021-8 ####[facility] LABORATORYCLIA [id number] [address] STATES [facility] MCHC (RBC) [Mass/Vol] 34.7 g/dL Normal 30.5-36.0 [facility] Comment on above: Order Comment: Speci men Type: BLOOD SPECIMENOrdering Facility: [facility] Address: [address] [address] Performed By: #### 5 7021-8 ####[facility] LABORATORYCLIA [id number] [address] MCV (RBC) [Entitic vol] 87.6 fL Normal 80.0-100.0 [facility] Comment on above: Order Comment: Speci men Type: BLOOD SPECIMENOrdering Facility: [facility] Address: [address] [address] Performed By: #### 5 7021-8 ####[facility] LABORATORYCLIA [id number] [address] [place] Monocytes (Bld) [#/Vol] 0.42 10*3/uL Normal <0.87 [facility] Comment on above: Order Comment: Speci men Type: BLOOD SPECIMENOrdering Facility: [facility] Address: [address] [address] Performed By: #### 5 7021-8 ####[facility] LABORATORYCLIA [id number] [place] [address] [place] Monocytes/100 WBC (Bld) 4.4 % Normal [facility] Comment on above: Order Comment: Speci men Type: BLOOD SPECIMENOrdering Facility: [facility] Address: [address] [place] [address] Performed By: #### 5 7021-8 ####[facility] LABORATORYCLIA [id number] [place] [address] [place] Neutrophils (Bld) [#/Vol] 7.84 10*3/uL High 1.45-7.50 [facility] Comment on above: Order Comment: Speci men Type: BLOOD SPECIMENOrdering Facility: [facility] Address: [address] [place] [address] Performed By: #### 5 7021-8 ####[facility] LABORATORYCLIA [id number] [place] [address] [place] Neutrophils/100 WBC (Bld) 81.8 % Normal [facility] Comment on above: Order Comment: Speci men Type: BLOOD SPECIMENOrdering Facility: [facility] Address: [address] [place] [address] Performed By: #### 5 7021-8 ####[facility] LABORATORYCLIA [id number] [place] [address] [place] Nucleated RBC (Bld) [#/Vol] 10*3/uL Normal <0.01 [facility] Comment on above: Order Comment: Speci men Type: BLOOD SPECIMENOrdering Facility: [facility] Address: [address] [place] [address] Performed By: #### 5 7021-8 ####[facility] LABORATORYCLIA [id number] [place] [address] [place] Nucleated RBC/100 WBC (Bld) [Ratio] 0.0 /100 WBC Normal [facility] Comment on above: Order Comment: Speci men Type: BLOOD SPECIMENOrdering Facility: [facility] Address: [address] [place] [address] Performed By: #### 5 7021-8 ####[facility] LABORATORYCLIA [id number] [place] [id number] [place] Platelet mean volume (Bld) [Entitic vol] 11.3 fL Normal 9.0-12.7 [facility] Comment on above: Order Comment: Speci men Type: BLOOD SPECIMENOrdering Facility: [facility] Address: [address] [place] [address] Performed By: #### 5 7021-8 ####[facility] LABORATORYCLIA [id number] [place] [address] [place] Platelets (Bld) [#/Vol] 253 10*3/uL Normal 150-400 [facility] Comment on above: Order Comment: Speci men Type: BLOOD SPECIMENOrdering Facility: [facility] Address: [address] [place] [address] Performed By: #### 5 7021-8 ####[facility] LABORATORYCLIA [id number] [place] [address] [place] RBC (Bld) [#/Vol] 4.21 10*6/uL Normal 3.90-5.20 [facility] Comment on above: Order Comment: Speci men Type: BLOOD SPECIMENOrdering Facility: [facility] Address: [address] [place] [address] Performed By: #### 5 7021-8 ####[facility] LABORATORYCLIA [id number] [place] [address] [place] WBC (Bld) [#/Vol] 9.59 10*3/uL Normal 3.70-11.00 [facility] Comment on above: Order Comment: Speci men Type: BLOOD SPECIMENOrdering Facility: [facility] Address: [address] [place] [address] Performed By: #### 5 7021-8 ####[facility] LABORATORYCLIA [id number] [place] [address] [place] CNDSon 11-12-2022 CNDS Normal [facility] CNPNon 11-12-2022 CNPN Normal [facility] NURSING PROGon 11-12-2022 NURSING PROG Normal [facility] NUTRITIONon 11-12-2022 NUTRITION Normal [facility] ANES POSTPROC EVALon 023 ANES POSTPROC EVAL Normal [facility] ANES PRE-OPon 11-11-2022 ANES PRE-OP [facility] BRIEF OP NOTon 11-11-2022 BRIEF OP NOT [facility] ERCPon 11-11-2022 ERCP Normal [facility] NURSING PROGon 11-11-2022 NURSING PROG [facility] OPERATIVE NOon 11-11-2022 OPERATIVE NO [facility] PT EDon 11-11-2022 PT ED [facility] TYPE + SCREENon 11-11-2022 ABO O [facility] Comment on above: Order Comment: Speci men Type: BLOOD SPECIMENOrdering Facility: [facility] Address: [address] [place] [address] Performed By: #### T SCR ####[facility] BLOOD BANKCLIA [id number] [address] STATES [facility] HISTORICAL AB SCR STATUS Negative [facility] Comment on above: Order Comment: Speci men Type: BLOOD SPECIMENOrdering Facility: [facility] Address: [address] [place] [address] Performed By: #### T SCR ####[facility] BLOOD BANKCLIA [id number] [address] [place] Rh Nom (Bld) Positive [facility] Comment on above: Order Comment: Speci men Type: BLOOD SPECIMENOrdering Facility: [facility] Address: [address] [place] [address] Performed By: #### T SCR ####[facility] BLOOD BANKCLIA [id number] [address] [place] TYPE AND SCREEN EXPIRATION 11/14/2022 23:59 [facility] Comment on above: Order Comment: Speci men Type: BLOOD SPECIMENOrdering Facility: [facility] Address: [address] [address] Performed By: #### T SCR ####[facility] BLOOD BANKCLIA [id number] [place] [address] [place] XR ERCP READ ONLYon 11-12-19 XR ERCP READ ONLY Normal [facility] CNCOon 11-10-2022 CNCO Letter Text Normal [facility] CNPNon 11-10-2022 CNPN Normal [facility] CNPNon 11-09-2022 CNPN Normal [facility] Population Healthon 11-10-19 Population Health Normal [facility] CNDSon 11-08-2022 CNDS Normal [facility] Basic metabolic 2000 panelon 11-06-2022 Anion gap [Moles/Vol] 8 mmol/L Low 9-18 [facility] Comment on above: Order Comment: Speci men Type: BLOOD SPECIMENOrdering Facility: [facility] Address: [address] [place] [address] Performed By: #### 2 4321-2 ####[facility] HOSPITALIA [id number] [place] [address] [place] Calcium [Mass/Vol] 8.6 mg/dL Normal 8.5-10.2 [facility] Comment on above: Order Comment: Speci men Type: BLOOD SPECIMENOrdering Facility: [facility] Address: [address] [place] [address] Performed By: #### 2 4321-2 ####[facility] COMMUN[facility] HOSPITALIA [id number] [place] [address] [place] Chloride [Moles/Vol] 108 mmol/L High 97-105 [facility] Comment on above: Order Comment: Speci men Type: BLOOD SPECIMENOrdering Facility: [facility] Address: [address] [place] [address] Performed By: #### 2 4321-2 ####[facility] COMMUN[facility] HOSPITALIA [id number] [place] [address] [place] CO2 [Moles/Vol] 24 mmol/L Normal 22-30 [facility] Comment on above: Order Comment: Speci men Type: BLOOD SPECIMENOrdering Facility: [facility] Address: [address] [id number] Performed By: #### 2 4321-2 ####[facility] LABORATORYIA [id number] [place] [address] [place] Creatinine [Mass/Vol] 0.74 mg/dL Normal 0.58-0.96 [facility] Comment on above: Order Comment: Speci men Type: BLOOD SPECIMENOrdering Facility: [facility] Address: [address] Performed By: #### 2 4321-2 ####[facility] LABORATORYCLIA [id number] [place] [address] [place] Creatinine and Glomerular filtration rate.predicted panel (S/P/Bld) 110 mL/min/1.73m??? Normal >=60 [facility] Comment on above: Order Comment: Speci men Type: BLOOD SPECIMENOrdering Facility: [facility] Address: [address] [address] Result Comment: Jessica mated Glomerular Filtration Rate [...] actual GFR. Performed By: #### 2 4321-2 ####[facility] LABORATORYIA [id number] [place] [address] [place] Glucose [Mass/Vol] 82 mg/dL Normal 74-99 [facility]spital Comment on above: Order Comment: Speci men Type: BLOOD SPECIMENOrdering Facility: [facility] Address: [address] [address] Result Comment: The [place] Diabetes Association (ADA) provides guidance for cutoff [...] Standards of Medical Care in Diabetes 2016, [place] Diabetes Association. Diabetes Care. 2016.39(Suppl 1). Performed By: #### 2 4321-2 ####[facility] LABORATORYCLIA [id number] [place] [address] [place] Potassium [Moles/Vol] 3.9 mmol/L Normal 3.7-5.1 [facility] Comment on above: Order Comment: Geraldo marrero Type: BLOOD SPECIMENOrdering Facility: [facility] Address: [address] [place] [address] Performed By: #### 2 4321-2 ####[facility] HOSPITALIA [id number] [place] [id number] [place] Sodium [Moles/Vol] 140 mmol/L Normal 136-144 [facility]spital Comment on above: Order Comment: Geraldo marrero Type: BLOOD SPECIMENOrdering Facility: [facility] Address: [address] [place] [address] Performed By: #### 2 4321-2 ####[facility] HOSPITALIA [id number] [place] [address] [place] Urea nitrogen [Mass/Vol] 8 mg/dL Normal 7-21 [facility] Comment on above: Order Comment: Geraldo marrero Type: BLOOD SPECIMENOrdering Facility: [facility] Address: [address] [address] Performed By: #### 2 4321-2 ####[facility] LABORATORYIA [id number] [place] [address] [place] CASE MGT INIT ASSESon 2022 CASE MGT INIT ASSES Normal [facility] CBC panel Auto (Bld)on 11-06 Erythrocyte distribution width (RBC) [Ratio] 13.3 % Normal 11.5-15.0 [facility] Comment on above: Order Comment: Speci men Type: BLOOD SPECIMENOrdering Facility: [facility] Address: [address] [address] Performed By: #### 5 8410-2 ####[facility] LABORATORYCLIA [id number] [address] [place] Hematocrit (Bld) [Volume fraction] 34.5 % Low 36.0-46.0 [facility] Comment on above: Order Comment: Speci men Type: BLOOD SPECIMENOrdering Facility: [facility] Address: [address] [address] Performed By: #### 5 8410-2 ####[facility] HOSPITALIA [id number] [place] [address] [place] Hemoglobin (Bld) [Mass/Vol] 11.4 g/dL Low 11.5-15.5 [facility] Comment on above: Order Comment: Speci men Type: BLOOD SPECIMENOrdering Facility: [facility] Address: [address] [address] Performed By: #### 5 8410-2 ####[facility] LABORATORYIA [id number] [place] [address] [place] MCH (RBC) [Entitic mass] 30.8 pg Normal 26.0-34.0 [facility] Comment on above: Order Comment: Speci men Type: BLOOD SPECIMENOrdering Facility: [facility] Address: [address] [address] Performed By: #### 5 8410-2 ####[facility] LABORATORYCLIA [id number] [place] [address] [place] MCHC (RBC) [Mass/Vol] 33.0 g/dL Normal 30.5-36.0 [facility] Comment on above: Order Comment: Speci men Type: BLOOD SPECIMENOrdering Facility: [facility] Address: [address] [address] Performed By: #### 5 8410-2 ####[facility] LABORATORYCLIA [id number] [place] [address] [place] MCV (RBC) [Entitic vol] 93.2 fL Normal 80.0-100.0 [facility] Comment on above: Order Comment: Speci men Type: BLOOD SPECIMENOrdering Facility: [facility] Address: [address] [address] Performed By: #### 5 8410-2 ####[facility] HOSPITALIA [id number] [address] [place] Nucleated RBC (Bld) [#/Vol] 10*3/uL Normal <0.01 [facility] Comment on above: Order Comment: Speci men Type: BLOOD SPECIMENOrdering Facility: [facility] Address: [address] [place] [address] Performed By: #### 5 8410-2 ####[facility] [id number] [place] [address] [place] Platelet mean volume (Bld) [Entitic vol] 11.3 fL Normal 9.0-12.7 [facility] Comment on above: Order Comment: Speci men Type: BLOOD SPECIMENOrdering Facility: [facility] Address: [address] [place] [address] Performed By: #### 5 8410-2 ####[facility] [id number] [place] [address] [place] Platelets (Bld) [#/Vol] 225 10*3/uL Normal 150-400 [facility] Comment on above: Order Comment: Speci men Type: BLOOD SPECIMENOrdering Facility: [facility] Address: [address] [address] Performed By: #### 5 8410-2 ####[facility] [id number] [place] [address] [place] RBC (Bld) [#/Vol] 3.70 10*6/uL Low 3.90-5.20 [facility] Comment on above: Order Comment: Speci men Type: BLOOD SPECIMENOrdering Facility: [facility] Address: [address] [address] Performed By: #### 5 8410-2 ####[facility] HOSPITALIA [id number] [place] [address] [place] WBC (Bld) [#/Vol] 3.98 10*3/uL Normal 3.70-11.00 [facility] Comment on above: Order Comment: Speci men Type: BLOOD SPECIMENOrdering Facility: [facility] Address: [address] [address] Performed By: #### 5 8410-2 ####[facility] HOSPITALIA [id number] [place] [address] [place] CNPNon 11-06-2022 CNPN Normal [facility] CONSULT PROGon 11-06-2022 CONSULT PROG Normal [facility] CONSULT PROG Normal [facility] NM HEPATOBILIARY W EF AND/OR RXon 11-06-2022 NM HEPATOBILIARY W EF AND/OR RX Normal [facility] CBC W Auto Differential pane l (Bld)on 11-05-2022 Basophils (Bld) [#/Vol] 0.03 10*3/uL Normal <0.11 [facility] Comment on above: Order Comment: Speci men Type: BLOOD SPECIMENOrdering Facility: [facility] Address: [address] [address] Performed By: #### 5 7021-8 ####[facility] HOSPITALIA [id number] [place] [id number] [place] Basophils/100 WBC (Bld) 0.6 % Normal [facility] Comment on above: Order Comment: Speci men Type: BLOOD SPECIMENOrdering Facility: [facility] Address: [address] [address] Performed By: #### 5 7021-8 ####[facility] LABORATORYIA [id number] [place] [address] [place] Differential cell count method Nom (Bld) Auto Normal [facility] Comment on above: Order Comment: Speci men Type: BLOOD SPECIMENOrdering Facility: [facility] Address: [address] [address] Performed By: #### 5 7021-8 ####[facility] LABORATORYCLIA [id number] [place] [address] [place] Eosinophils (Bld) [#/Vol] 0.08 10*3/uL Normal <0.46 [facility] Comment on above: Order Comment: Speci men Type: BLOOD SPECIMENOrdering Facility: [facility] Address: [address] [address] Performed By: #### 5 7021-8 ####[facility] LABORATORYIA [id number] [place] [address] [place] Eosinophils/100 WBC (Bld) 1.5 % Normal [facility] Comment on above: Order Comment: Speci men Type: BLOOD SPECIMENOrdering Facility: [facility] Address: [address] [address] Performed By: #### 5 7021-8 ####[facility] LABORATORYIA [id number] [place] [address] [place] Erythrocyte distribution width (RBC) [Ratio] 13.3 % Normal 11.5-15.0 [facility] Comment on above: Order Comment: Speci men Type: BLOOD SPECIMENOrdering Facility: [facility] Address: [address] [address] Performed By: #### 5 7021-8 ####[facility] LABORATORYIA [id number] [address] [place] Hematocrit (Bld) [Volume fraction] 40.5 % Normal 36.0-46.0 [facility] Comment on above: Order Comment: Speci men Type: BLOOD SPECIMENOrdering Facility: [facility] Address: [address] [address] Performed By: #### 5 7021-8 ####[facility] LABORATORYCLIA [id number] [place] [address] [place] Hemoglobin (Bld) [Mass/Vol] 13.3 g/dL Normal 11.5-15.5 [facility] Comment on above: Order Comment: Speci men Type: BLOOD SPECIMENOrdering Facility: [facility] Address: [address] [address] Performed By: #### 5 7021-8 ####[facility] LABORATORYCLIA [id number] [place] [id number] [place] Immature granulocytes (Bld) [#/Vol] 10*3/uL Normal <0.10 [facility] Comment on above: Order Comment: Speci men Type: BLOOD SPECIMENOrdering Facility: [facility] Address: [address] [address] Performed By: #### 5 7021-8 ####[facility] LABORATORYCLIA [id number] [place] [address] [place] Immature granulocytes/100 WBC (Bld) 0.4 % Normal [facility] Comment on above: Order Comment: Speci men Type: BLOOD SPECIMENOrdering Facility: [facility] Address: [address] [address] Performed By: #### 5 7021-8 ####[facility] LABORATORYIA [id number] [place] [address] [place] Lymphocytes (Bld) [#/Vol] 2.53 10*3/uL Normal 1.00-4.00 [facility] Comment on above: Order Comment: Speci men Type: BLOOD SPECIMENOrdering Facility: [facility] Address: [address] [address] Performed By: #### 5 7021-8 ####[facility] LABORATORYIA [id number] [place] [address] [place] Lymphocytes/100 WBC (Bld) 48.5 % Normal [facility] Comment on above: Order Comment: Speci men Type: BLOOD SPECIMENOrdering Facility: [facility] Address: [address] [address] Performed By: #### 5 7021-8 ####[facility] LABORATORY[facility] [id number] [address] MCH (RBC) [Entitic mass] 30.4 pg Normal 26.0-34.0 [facility] Comment on above: Order Comment: Speci men Type: BLOOD SPECIMENOrdering Facility: [facility] Address: [address] [address] Performed By: #### 5 7021-8 ####[facility] [id number] [address] [place] MCHC (RBC) [Mass/Vol] 32.8 g/dL Normal 30.5-36.0 [facility] Comment on above: Order Comment: Speci men Type: BLOOD SPECIMENOrdering Facility: [facility] Address: [address] [place] [address] Performed By: #### 5 7021-8 ####[facility]ITALIA [id number] [address] [place] MCV (RBC) [Entitic vol] 92.7 fL Normal 80.0-100.0 [facility] Comment on above: Order Comment: Speci men Type: BLOOD SPECIMENOrdering Facility: [facility] Address: [address] [place] [address] Performed By: #### 5 7021-8 ####[facility]ITALIA [id number] [address] [place] Monocytes (Bld) [#/Vol] 0.30 10*3/uL Normal <0.87 [facility] Comment on above: Order Comment: Speci men Type: BLOOD SPECIMENOrdering Facility: [facility] Address: [address] [place], [place] [address] Performed By: #### 5 7021-8 ####[facility] LABORATORYIA [id number] [address] [place] Monocytes/100 WBC (Bld) 5.7 % Normal [facility] Comment on above: Order Comment: Speci men Type: BLOOD SPECIMENOrdering Facility: [facility] Address: [address] [address] Performed By: #### 5 7021-8 ####[facility] LABORATORYCLIA [id number] [place] [address] [place] Neutrophils (Bld) [#/Vol] 2.26 10*3/uL Normal 1.45-7.50 [facility] Comment on above: Order Comment: Speci men Type: BLOOD SPECIMENOrdering Facility: [facility] Address: [address] [address] Performed By: #### 5 7021-8 ####[facility] LABORATORYIA [id number] [place] [address] [place] Neutrophils/100 WBC (Bld) 43.3 % Normal [facility] Comment on above: Order Comment: Speci men Type: BLOOD SPECIMENOrdering Facility: [facility] Address: [address] [address] Performed By: #### 5 7021-8 ####[facility] LABORATORYIA [id number] [place] [address] [place] Nucleated RBC (Bld) [#/Vol] 10*3/uL Normal <0.01 [facility] Comment on above: Order Comment: Speci men Type: BLOOD SPECIMENOrdering Facility: [facility] Address: [address] [address] Performed By: #### 5 7021-8 ####[facility] LABORATORYCLIA [id number] [place] [address] [place] Nucleated RBC/100 WBC (Bld) [Ratio] 0.0 /100 WBC Normal [facility] Comment on above: Order Comment: Speci men Type: BLOOD SPECIMENOrdering Facility: [facility] Address: [address] [address] Performed By: #### 5 7021-8 ####[facility] LABORATORYCLIA [id number] [place] [address] [place] Platelet mean volume (Bld) [Entitic vol] 11.4 fL Normal 9.0-12.7 [facility] Comment on above: Order Comment: Speci men Type: BLOOD SPECIMENOrdering Facility: [facility] Address: [address] [address] Performed By: #### 5 7021-8 ####[facility] LABORATORYCLIA [id number] [place] [id number] [place] Platelets (Bld) [#/Vol] 207 10*3/uL Normal 150-400 [facility] Comment on above: Order Comment: Speci men Type: BLOOD SPECIMENOrdering Facility: [facility] Address: [address] [address] Performed By: #### 5 7021-8 ####[facility]ITALIA [id number] [place] [address] [place] RBC (Bld) [#/Vol] 4.37 10*6/uL Normal 3.90-5.20 [facility] Comment on above: Order Comment: Speci men Type: BLOOD SPECIMENOrdering Facility: [facility] Address: [address] [address] Performed By: #### 5 7021-8 ####[facility]ITALIA [id number] [place] [id number] [place] WBC (Bld) [#/Vol] 5.22 10*3/uL Normal 3.70-11.00 [facility] Comment on above: Order Comment: Speci men Type: BLOOD SPECIMENOrdering Facility: [facility] Address: [address] [place] [address] Performed By: #### 5 7021-8 ####[facility]ITALIA [id number] [place] [id number] [place] CNPNon 11-05-2022 CNPN Normal [facility] CONSULTon 11-05-2022 CONSULT Normal [facility] CONSULT Normal [facility] Comprehensive metabolic 2000 panelon 11-05-2022 Albumin [Mass/Vol] 4.2 g/dL Normal 3.9-4.9 [facility] Comment on above: Order Comment: Speci men Type: BLOOD SPECIMENOrdering Facility: [facility] Address: [address] [address] Performed By: #### 2 4323-8, 3040-3 ####[facility] LABORATORYCLIA [id number] [place] [address] [place] ALP [Catalytic activity/Vol] 71 U/L Normal 34-123 [facility] Comment on above: Order Comment: Speci men Type: BLOOD SPECIMENOrdering Facility: [facility] Address: [address] [address] Performed By: #### 2 4323-8, 0-3 ####[facility] LABORATORYCLIA [id number] [place] [address] [place] ALT [Catalytic activity/Vol] 15 U/L Normal 7-38 [facility] Comment on above: Order Comment: Speci men Type: BLOOD SPECIMENOrdering Facility: [facility] Address: [address] [address] Performed By: #### 2 4323-8, 0-3 ####[facility] LABORATORYCLIA [id number] [place] [address] [place] Anion gap [Moles/Vol] 12 mmol/L Normal 9-18 [facility] Comment on above: Order Comment: Speci men Type: BLOOD SPECIMENOrdering Facility: [facility] Address: [address] [address] Performed By: #### 2 4323-8, 3040-3 ####[facility] LABORATORYCLIA [id number] [place] [address] [place] AST [Catalytic activity/Vol] 26 U/L Normal 13-35 [facility] Comment on above: Order Comment: Speci men Type: BLOOD SPECIMENOrdering Facility: [facility] Address: [address] [address] Performed By: #### 2 4323-8, 3039-3 ####[facility] LABORATORYCLIA [id number] [place] [address] [place] Bilirubin [Mass/Vol] 0.4 mg/dL Normal 0.2-1.3 [facility] Comment on above: Order Comment: Speci men Type: BLOOD SPECIMENOrdering Facility: [facility] Address: [address] [address] Performed By: #### 2 4323-8, 3039-3 ####[facility] LABORATORYCLIA [id number] [place] [address] [place] Calcium [Mass/Vol] 8.6 mg/dL Normal 8.5-10.2 [facility] Comment on above: Order Comment: Speci men Type: BLOOD SPECIMENOrdering Facility: [facility] Address: [address] [place] [address] Performed By: #### 2 4323-8, 3 ####[facility]OSPITALIA [id number] [place] [address] [place] Chloride [Moles/Vol] 107 mmol/L High 97-105 [facility] Comment on above: Order Comment: Speci men Type: BLOOD SPECIMENOrdering Facility: [facility] Address: [address] [place] [address] Performed By: #### 2 4323-8, 3 ####[facility] LABORATORYCLIA [id number] [place] [address] [place] CO2 [Moles/Vol] 22 mmol/L Normal 22-30 [facility] ital Comment on above: Order Comment: Speci men Type: BLOOD SPECIMENOrdering Facility: [facility] Address: [address] [place] [address] Performed By: #### 2 4323-8, 3039-3 ####[facility]ORATORYIA [id number] [place] [address] [place] Creatinine [Mass/Vol] 0.87 mg/dL Normal 0.58-0.96 [facility] Comment on above: Order Comment: Geraldo marrero Type: BLOOD SPECIMENOrdering Facility: [facility] Address: [address] [id number] Performed By: #### 2 4323-8, 3040-3 ####[facility] LABORATORYCLIA [id number] [place] [address] [place] Creatinine and Glomerular filtration rate.predicted panel (S/P/Bld) 90 mL/min/1.73m??? Normal >=60 [facility] Comment on above: Order Comment: Geraldo marrero Type: BLOOD SPECIMENOrdering Facility: [facility] Address: [place] Result Comment: Jessica mated Glomerular Filtration [...] actual GFR. Performed By: #### 2 4323-8, 3040-3 ####[facility] LABORATORYCLIA [id number] [address] [id number] [place] Glucose [Mass/Vol] 87 mg/dL Normal 74-99 [facility] Comment on above: Order Comment: Geraldo marrero Type: BLOOD SPECIMENOrdering Facility: [facility] Address: [place] Result Comment: The [place] Diabetes Association (ADA) provides guidance for cutoff [...] Standards of Medical Care in Diabetes 2016, [place] [employer]. Diabetes Care. 2016.39(Suppl 1). Performed By: #### 2 4323-8, 0-3 ####[facility] LABORATORYCLIA [id number] [place] [address] [place] Potassium [Moles/Vol] 3.5 mmol/L Low 3.7-5.1 [facility] Comment on above: Order Comment: Speci men Type: BLOOD SPECIMENOrdering Facility: [facility] Address: [address] [address] Performed By: #### 2 4323-8, 0-3 ####[facility]PITALIA [id number] [place] [id number] [place] Protein [Mass/Vol] 6.6 g/dL Normal 6.3-8.0 [facility] Comment on above: Order Comment: Speci men Type: BLOOD SPECIMENOrdering Facility: [facility] Address: [address] [address] Performed By: #### 2 4323-8, 3039-3 ####[facility] HOSPITALIA [id number] [place] [address] [place] Sodium [Moles/Vol] 141 mmol/L Normal 136-144 [facility] Comment on above: Order Comment: Speci men Type: BLOOD SPECIMENOrdering Facility: [facility] Address: [address] [address] Performed By: #### 2 4323-8, 3039-3 ####[facility] LABORATORYCLIA [id number] [place] [address] [place] Urea nitrogen [Mass/Vol] 9 mg/dL Normal 7-21 [facility] Comment on above: Order Comment: Speci men Type: BLOOD SPECIMENOrdering Facility: [facility] Address: [address] [address] Performed By: #### 2 4323-8, 0-3 ####[facility] LABORATORYCLIA [id number] [place] [address] [place] ECG COMPLETEon 11-05-2022 ECG COMPLETE Normal [facility] ED NOTEon 11-05-2022 ED NOTE HNO ID: [id number] Author: Joanne Mario RN Service: ? Author Type: Registered Nurse Type: ED Notes Filed: 11/05/2022 1:56 PM Note Text: Attempt to call report, Nurse taking patient is ROHIT. Will return call when nurse available. Normal [facility] ED NOTE HNO ID: [id number] Author: Joanne Mario RN Service: ? Author Type: Registered Nurse Type: ED Notes Filed: 11/05/2022 1:28 PM Note Text: Patient refused all daily meds but reglan due to nausea. Normal [facility] ED PROV NOTEon 11-05-2022 ED PROV NOTE Normal [facility] HISTORY PHYSICALon HISTORY PHYSICAL Normal [facility] pital [facility]19 Lipase [Catalytic activity/Vol] 38 U/L Normal 16-61 [facility] Comment on above: Order Comment: Speci men Type: BLOOD SPECIMENOrdering Facility: [facility] Address: [address] [phone] Performed By: #### 2 4323-8, 3040-3 ####[facility] LABORATORYCLIA [id number] [facility] [place] [address] [place] NURSING PROGon 11-05-2022 NURSING PROG Normal [facility] XR ABD 2V SUPINE W UPR/DECUB /CTLon 11-05-2022 XR ABD 2V SUPINE W UPR/DECUB/CTL [facility] 25(OH)D3 SerP-ncon 2022 25-hydroxyvitamin D3 [Mass/Vol] 29.0 ng/mL Low 31.0-80.0 [facility] Comment on above: Order Comment: Speci men Type: BLOOD SPECIMENOrdering Facility: [facility] Address: [address] [place], [place] [phone] Result Comment: Clas sification of 25 [place] Vitamin D status:Deficiency/Insufficiency: < or = 30 ng/ml.Sufficiency/Optimal Levels: 31-80 ng/mLToxicity: > 100 ng/mL.Test performed by chemiluminescent immunoassay. Performed By: #### 1 989-3 ####[facility] [id number] [place] [address] [place] Amylase SerPl-cCncon 023 Amylase [Catalytic activity/Vol] 40 U/L Normal 30-104 [facility] Comment on above: Order Comment: Speci men Type: BLOOD SPECIMENOrdering Facility: [facility] Address: [address] [place] [address] Performed By: #### 1 798-8, 2731-8, 2284-8, 2132-9 ####[facility] [id number] [address] [place] CBC panel Auto (Bld)on 11-04 Erythrocyte distribution width (RBC) [Ratio] 13.2 % Normal 11.5-15.0 [facility] Comment on above: Order Comment: Speci men Type: BLOOD SPECIMENOrdering Facility: [facility] Address: [address] [place] [address] Performed By: #### 5 8410-2 ####[facility] [id number] [place] [address] [place] Hematocrit (Bld) [Volume fraction] 40.5 % Normal 36.0-46.0 [facility] Comment on above: Order Comment: Speci men Type: BLOOD SPECIMENOrdering Facility: [facility] Address: [address] [place] [address] Performed By: #### 5 8410-2 ####[facility] [id number] [place] [address] [place] Hemoglobin (Bld) [Mass/Vol] 13.6 g/dL Normal 11.5-15.5 [facility] Comment on above: Order Comment: Speci men Type: BLOOD SPECIMENOrdering Facility: [facility] Address: [address] Performed By: #### 5 8410-2 ####[facility] LABCLIA [id number] [address] MCH (RBC) [Entitic mass] 30.7 pg Normal 26.0-34.0 [facility] Comment on above: Order Comment: Speci men Type: BLOOD SPECIMENOrdering Facility: [facility] Address: [address] Performed By: #### 5 8410-2 ####[facility] LABCLIA [id number] [address] STATES [facility] MCHC (RBC) [Mass/Vol] 33.6 g/dL Normal 30.5-36.0 [facility] Comment on above: Order Comment: Speci men Type: BLOOD SPECIMENOrdering Facility: [facility] Address: [address] [place], [place] [address] Performed By: #### 5 8410-2 ####[facility] LABIA [id number] [address] [place] MCV (RBC) [Entitic vol] 91.4 fL Normal 80.0-100.0 [facility] Comment on above: Order Comment: Speci men Type: BLOOD SPECIMENOrdering Facility: [facility] Address: [address] [place] [address] Performed By: #### 5 8410-2 ####[facility] LABIA [id number] [address] STATES [facility] Nucleated RBC (Bld) [#/Vol] 10*3/uL Normal <0.01 [facility] Comment on above: Order Comment: Speci men Type: BLOOD SPECIMENOrdering Facility: [facility] Address: [address] [place], [place] [address] Performed By: #### 5 8410-2 ####[facility] LABCLIA [id number] [place] [address] [place] Platelet mean volume (Bld) [Entitic vol] 12.1 fL Normal 9.0-12.7 [facility] Comment on above: Order Comment: Speci men Type: BLOOD SPECIMENOrdering Facility: [facility] Address: [address] [place], [place] [address] Performed By: #### 5 8410-2 ####[facility] LABCLIA [id number] [place] [address] [place] Platelets (Bld) [#/Vol] 313 10*3/uL Normal 150-400 [facility] Comment on above: Order Comment: Speci men Type: BLOOD SPECIMENOrdering Facility: [facility] Address: [address] [place] [address] Performed By: #### 5 8410-2 ####[facility] LABIA [id number] [place] [address] [place] RBC (Bld) [#/Vol] 4.43 10*6/uL Normal 3.90-5.20 [facility] Comment on above: Order Comment: Speci men Type: BLOOD SPECIMENOrdering Facility: [facility] Address: [address] [place], [place] [address] Performed By: #### 5 8410-2 ####[facility] LABIA [id number] [place] [address] [place] WBC (Bld) [#/Vol] 6.69 10*3/uL Normal 3.70-11.00 [facility] Comment on above: Order Comment: Speci men Type: BLOOD SPECIMENOrdering Facility: [facility] Address: [address] [place], [place] [address] Performed By: #### 5 8410-2 ####[facility] LABIA [id number] [place] [address] [place] CNCOon 09-20-2023 CNCO Letter Text Normal [facility] CNOVon 11-04-2022 CNOV Normal [facility] Comprehensive metabolic 2000 panelon 11-04-2022 Albumin [Mass/Vol] 4.3 g/dL Normal 3.9-4.9 [facility] Comment on above: Order Comment: Speci men Type: BLOOD SPECIMENOrdering Facility: [facility] Address: [address] [place], [place] [address] Performed By: #### 5 0190-8, 3040-3, 95489-4, 2276-4 ####[facility] LABIA [id number] [place] [address] [place] ALP [Catalytic activity/Vol] 69 U/L Normal 34-123 [facility] Comment on above: Order Comment: Speci men Type: BLOOD SPECIMENOrdering Facility: [facility] Address: [address] [place], [place] [address] Performed By: #### 5 0190-8, 3040-3, 82594-7, 6-4 ####[facility] LABIA [id number] [place] [address] [place] ALT [Catalytic activity/Vol] 16 U/L Normal 7-38 [facility] Comment on above: Order Comment: Speci men Type: BLOOD SPECIMENOrdering Facility: [facility] Address: [address] [place], [place] [address] Performed By: #### 5 0190-8, 3040-3, 81918-5, 2276-4 ####[facility] LABIA [id number] [place] [address] [place] Anion gap [Moles/Vol] 13 mmol/L Normal 9-18 [facility] Comment on above: Order Comment: Speci men Type: BLOOD SPECIMENOrdering Facility: [facility] Address: [address] [place], [place] [address] Performed By: #### 5 0190-8, 3040-3, 84803-0, 2275-4 ####[facility] LABCLIA [id number] [place] [address] [place] AST [Catalytic activity/Vol] 25 U/L Normal 13-35 [facility] Comment on above: Order Comment: Speci men Type: BLOOD SPECIMENOrdering Facility: [facility] Address: [address] [place] [address] Performed By: #### 5 0190-8, 3040-3, 27369-7, 2275-4 ####[facility] LABIA [id number] [place] [address] [place] Bilirubin [Mass/Vol] 0.3 mg/dL Normal 0.2-1.3 [facility] Comment on above: Order Comment: Speci men Type: BLOOD SPECIMENOrdering Facility: [facility] Address: [address] [place] [address] Performed By: #### 5 0190-8, 3040-3, 64787-0, 4 ####[facility] LABIA [id number] [place] [address] [place] Calcium [Mass/Vol] 9.1 mg/dL Normal 8.5-10.2 [facility] Comment on above: Order Comment: Speci men Type: BLOOD SPECIMENOrdering Facility: [facility] Address: [address] [place], [place] [address] Performed By: #### 5 0190-8, 3040-3, 13633-9, 4 ####[facility] LABIA [id number] [place] [address] [place] Chloride [Moles/Vol] 105 mmol/L Normal 97-105 [facility] Comment on above: Order Comment: Speci men Type: BLOOD SPECIMENOrdering Facility: [facility] Address: [address] [place], [place] [address] Performed By: #### 5 0190-8, 3040-3, 22761-3, 6-4 ####[facility] LABCLIA [id number] [place] [address] [place] CO2 [Moles/Vol] 19 mmol/L Low 22-30 [facility] Comment on above: Order Comment: Speci men Type: BLOOD SPECIMENOrdering Facility: [facility] Address: [address] [place] [address] Performed By: #### 5 0190-8, 3040-3, 41628-2, 2275-4 ####[facility] LABIA [id number] [place] [address] [place] Creatinine [Mass/Vol] 0.77 mg/dL Normal 0.58-0.96 [facility] Comment on above: Order Comment: Speci men Type: BLOOD SPECIMENOrdering Facility: [facility] Address: [address] [place] [address] Performed By: #### 5 0190-8, 3040-3, 67641-0, 4 ####[facility] LABIA [id number] [address] [place] Creatinine and Glomerular filtration rate.predicted panel (S/P/Bld) 105 mL/min/1.73m??? Normal >=60 [facility] Comment on above: Order Comment: Speci men Type: BLOOD SPECIMENOrdering Facility: [facility] Address: [address] [place] [address] Result Comment: Jessica mated Glomerular Filtration Rate [...] GFR. Performed By: #### 5 0190-8, 3040-3, 91057-5, 2275-4 ####[facility] LABCLIA [id number] [place] [address] [place] Glucose [Mass/Vol] 224 mg/dL High 74-99 [facility] Comment on above: Order Comment: Speci men Type: BLOOD SPECIMENOrdering Facility: [facility] Address: [address] [place], [place] [phone] Result Comment: The [place] Diabetes Association (ADA) provides guidance for cutoff [...] Standards of Medical Care in Diabetes 2016, [place] [employer]. Diabetes Care. 2016.39(Suppl 1). Performed By: #### 5 0190-8, 3040-3, 00060-0, 2276-4 ####[facility] LABIA [id number] [place] [address] [place] Potassium [Moles/Vol] 3.7 mmol/L Normal 3.7-5.1 [facility] Comment on above: Order Comment: Speci men Type: BLOOD SPECIMENOrdering Facility: [facility] Address: [address] [place] [address] Performed By: #### 5 0190-8, 3040-3, 04220-9, 2276-4 ####[facility] LABIA [id number] [place] [address] [place] Protein [Mass/Vol] 6.9 g/dL Normal 6.3-8.0 [facility] Comment on above: Order Comment: Speci men Type: BLOOD SPECIMENOrdering Facility: [facility] Address: [address] [place] [address] Performed By: #### 5 0190-8, 3040-3, 95886-9, 2276-4 ####[facility] LABCLIA [id number] [place] [address] [place] Sodium [Moles/Vol] 137 mmol/L Normal 136-144 [facility] Comment on above: Order Comment: Speci men Type: BLOOD SPECIMENOrdering Facility: [facility] Address: [address] [place] [address] Performed By: #### 5 0190-8, 3040-3, 50318-7, 6-4 ####[facility] LABIA [id number] [place] [address] [place] Urea nitrogen [Mass/Vol] 9 mg/dL Normal 7-21 [facility] Comment on above: Order Comment: Speci men Type: BLOOD SPECIMENOrdering Facility: [facility] Address: [address] [place] [address] Performed By: #### 5 0190-8, 3040-3, 00183-6, 6-4 ####[facility] [id number] [place] [address] [place] Ferritin SerPl-mCncon 2022 Ferritin [Mass/Vol] 13.2 ng/mL Low 14.7-205.1 [facility] Comment on above: Order Comment: Speci men Type: BLOOD SPECIMENOrdering Facility: [facility] Address: [address] [place], [place] [id number] Performed By: #### 5 0190-8, 3040-3, 14443-2, 6-4 ####[facility] LABIA [id number] [place] [address] [place] Folate SerPl-mCncon 11-05-19 Folate [Mass/Vol] 9.3 ng/mL Normal >4.[address] [facility] Comment on above: Order Comment: Speci men Type: BLOOD SPECIMENOrdering Facility: [facility] Address: [address] [address] Performed By: #### 1 798-8, 2731-8, 2284-8, 2132-9 ####[facility] LABCLIA [id number] [place] [address] [place] Iron and Iron binding capaci ty panelon 11-04-2022 Iron [Mass/Vol] 52 ug/dL Normal 41-186 [facility] Comment on above: Order Comment: Speci men Type: BLOOD SPECIMENOrdering Facility: [facility] Address: [address] [place] [address] Performed By: #### 5 0190-8, 3040-3, 56638-2, 6-4 ####[facility]IA [id number] [place] [address] [place] Iron binding capacity [Mass/Vol] 348 ug/dL Normal 232-386 [facility] Comment on above: Order Comment: Speci men Type: BLOOD SPECIMENOrdering Facility: [facility] Address: [address] [place] [address] Performed By: #### 5 0190-8, 3040-3, 86821-5, 6-4 ####[facility]IA [id number] [place] [address] [place] Iron/TIBC [Molar ratio] 14.9 % Low 15.0-57.0 [facility] Comment on above: Order Comment: Speci men Type: BLOOD SPECIMENOrdering Facility: [facility] Address: [address] [place] [address] Performed By: #### 5 0190-8, 3040-3, 51812-1, 6-4 ####[facility] LABIA [id number] [place] [id number] [place] Lipase SerPl-cCncon 11-05-19 23 Lipase [Catalytic activity/Vol] 35 U/L Normal 16-61 [facility] Comment on above: Order Comment: Speci men Type: BLOOD SPECIMENOrdering Facility: [facility] Address: [address] [place] [address] Performed By: #### 5 0190-8, 3040-3, 79754-1, 2276-4 ####[facility] LABCLIA [id number] [place] [address] [place] PTH-Intact SerPl-ncon 10-17 Parathyrin.intact [Mass/Vol] 27 pg/mL Normal 15-65 [facility] Comment on above: Order Comment: Speci men Type: BLOOD SPECIMENOrdering Facility: [facility] Address: [address] [place] [address] Performed By: #### 1 798-8, 2731-8, 2284-8, 2132-9 ####[facility] LABCLIA [id number] [place] [address] [place] US ABD RIGHT UPPER QUADRANTo n 11-04-2022 US ABD RIGHT UPPER QUADRANT Normal [facility] VITAMIN B1 (THIAMINE), WHOLE BLOODon 11-04-2022 Thiamine (Bld) [Moles/Vol] 165.0 nmol/L Normal 84.3-213.3 [facility] Comment on above: Order Comment: Speci men Type: BLOOD SPECIMENOrdering Facility: [facility] Address: [address] [place] [address] Result Comment: This assay measures the concentration of thiamine diphosphate (TDP), the primary active form of vitamin B1. Approximately 90 percent of vitamin B1 present in whole blood is TDP. Thiamine and thiamine monophosphate, which comprise the remaining 10 percent, are not measured.This test was developed and its performance characteristics determined by [facility]'s Lucie Harmon [facility] Pathology [facility] [place] ([facility] It has not been cleared or approved by the FDA. [facility] is regulated under CLIA as qualified to perform high-complexity testing. This test is used for clinical purposes. It should not be regarded as investigational or for research. Performed By: #### B 1WB ####[facility]IA [id number] [place] [address] [place] Vit A SerPl-mCncon 3 Retinol [Mass/Vol] 0.44 mg/L Normal 0.30-1.20 [facility] Comment on above: Order Comment: Speci men Type: BLOOD SPECIMENOrdering Facility: [facility] Address: [address] [place] [address] Result Comment: This test was developed and its performance characteristics determined by [facility] Pathology and Laboratory Medicine [place] ([facility]). It has not been cleared or approved by the FDA. [facility] is regulated under CLIA as qualified to perform high-complexity testing. This test is used for clinical purposes. It should not be regarded as investigational or for research. Performed By: #### 2 923-1 ####[facility] [id number] [place] [address] [place] Vit B12 SerPl-mCncon 023 Cobalamin (Vitamin B12) [Mass/Vol] 1018 pg/mL Normal 232-1245 [facility] Comment on above: Order Comment: Speci men Type: BLOOD SPECIMENOrdering Facility: [facility] Address: [address] [place] [address] Performed By: #### 1 798-8, 2731-8, 2284-8, 2132-9 ####[facility] [id number] [place] [address] [place] Zinc SerPl-mCncon 11-04-2022 Zinc [Mass/Vol] 51 ug/dL Low 60-120 [facility] Comment on above: Order Comment: Speci men Type: BLOOD SPECIMENOrdering Facility: [facility] Address: [address] [place] [address] Result Comment: This test was developed and its performance characteristics determined by [facility] [place] ([facility]). It has not been cleared or approved by the FDA. [facility] is regulated under CLIA as qualified to perform high-complexity testing. This test is used for clinical purposes. It should not be regarded as investigational or for research. Performed By: #### 5 763-8 ####[facility] LABCLIA [id number] [address] [address] [facility] Ambulatory Visit Summaryon 0 11-03-2022 Ambulatory Visit Summary Normal [address] [place] [address]- \.br\ Medications\.br\ What How Much When Why [...] Metabolic syndrome\.br\ PCOS- polycystic ovary syndrome\.br\ \.br\ [facility] Family Medicine Office/Clini c Noteon 11-03-2022 Family Medicine Office/Clinic Note Normal [facility] Comment on above: Result Comment: Elec tronically Signed By: Jaquan Paula\.br\Date and Time Signed: 11/03/22 11:43 EDT Provider Letteron 11-03-2022 Provider Letter Prabhakar Salvador [facility] CBCon 11-02-2022 ABSOLUTE BAS 0.0 10*3/uL Normal 0.0-0.2 [facility] Comment on above: Performed By: #### A CBC, LIPA2, CMPF #### Testing performed at [address] [address] ABSOLUTE EOS 0.0 10*3/uL Normal 0.0-0.7 [facility] Comment on above: Performed By: #### A CBC, LIPA2, CMPF #### Testing performed at [address] [address] ABSOLUTE NEUTROPHIL COUNT 3.6 10*3/uL Normal 1.4-6.5 [facility] Comment on above: Performed By: #### A CBC, LIPA2, CMPF #### Testing performed at [address] [address] Basophils/100 WBC (Bld) 0.3 % Normal 0.0-2.0 [facility] Comment on above: Performed By: #### A CBC, LIPA2, CMPF #### Testing performed at [address] [address] DTYPE AUTO DIFF Normal [facility] Comment on above: Performed By: #### A CBC, LIPA2, CMPF #### Testing performed at [address] [address] Eosinophils/100 WBC (Bld) 0.1 % Normal 0.0-11.0 [facility] Comment on above: Performed By: #### A CBC, LIPA2, CMPF #### Testing performed at [address] [address] Lymphocytes (Bld) [#/Vol] 0.8 10*3/uL Low 1.2-3.4 [facility] Comment on above: Performed By: #### A CBC, LIPA2, CMPF #### Testing performed at [address] [address] Lymphocytes/100 WBC (Bld) 17.9 % Low 20.0-55.0 [facility] Comment on above: Performed By: #### A CBC, LIPA2, CMPF #### Testing performed at [address] [address] Monocytes (Bld) [#/Vol] 0.1 10*3/uL Normal 0.0-0.7 [facility] Comment on above: Performed By: #### A CBC, LIPA2, CMPF #### Testing performed at [address] [address] Monocytes/100 WBC (Bld) 2.3 % Normal 0.0-10.0 [facility] Comment on above: Performed By: #### A CBC, LIPA2, CMPF #### Testing performed at [address] [address] Neutrophils/100 WBC (Bld) 79.4 % High 37.0-75.0 [facility] Comment on above: Performed By: #### A CBC, LIPA2, CMPF #### Testing performed at [address] [address] Erythrocyte distribution width (RBC) [Ratio] 14.8 % High 11.5-14.5 [facility] Comment on above: Performed By: #### A CBC, LIPA2, CMPF #### Testing performed at [address] [address] Hematocrit (Bld) [Volume fraction] 38.8 % Normal 36.0-48.0 [facility] Comment on above: Performed By: #### A CBC, LIPA2, CMPF #### Testing performed at [address] [address] Hemoglobin (Bld) [Mass/Vol] 13.0 g/dL Normal 12.0-16.0 [facility] Comment on above: Performed By: #### A CBC, LIPA2, CMPF #### Testing performed at [address] [address] MCH (RBC) [Entitic mass] 30.6 pg Normal 26.0-35.0 [facility] Comment on above: Performed By: #### A CBC, LIPA2, CMPF #### Testing performed at [address] [address] MCHC (RBC) [Mass/Vol] 33.5 g/dL Normal 27.0-37.0 [facility] Comment on above: Performed By: #### A CBC, LIPA2, CMPF #### Testing performed at [address] [address] MCV (RBC) [Entitic vol] 91.2 fL Normal 80.0-100.0 [facility] Comment on above: Performed By: #### A CBC, LIPA2, CMPF #### Testing performed at [address] [address] Platelet mean volume (Bld) [Entitic vol] 9.9 fL Normal 7.4-11.0 [facility] Comment on above: Performed By: #### A CBC, LIPA2, CMPF #### Testing performed at [address] [address] Platelets (Bld) [#/Vol] 234 10*3/uL Normal 130-400 [facility] Comment on above: Performed By: #### A CBC, LIPA2, CMPF #### Testing performed at [address] [address] RBC (Bld) [#/Vol] 4.25 10*6/uL Normal 4.0-5.4 [facility] Comment on above: Performed By: #### A CBC, LIPA2, CMPF #### Testing performed at [address] [place] [address] WBC (Bld) [#/Vol] 4.5 10*3/uL Normal 3.6-11.0 [facility] Comment on above: Performed By: #### A CBC, LIPA2, CMPF #### Testing performed at [address] [address] CBC, EDIF, PLATELETon 2022 ABSOLUTE BASOPHIL COUNT 0.0 10*3/uL 0.0 - 0.2 10*3/uL [facility] Basophils/100 WBC (Bld) 0.3 % 0.0 - 2.0 % [facility] Differential cell count method Nom (Bld) AUTO DIFF % [facility] Eosinophils (Bld) [#/Vol] 0.0 10*3/uL 0.0 - 0.7 10*3/uL [facility] Eosinophils/100 WBC (Bld) 0.1 % 0.0 - 11.0 % [facility] Erythrocyte distribution width (RBC) [Ratio] 14.8 % High 11.5 - 14.5 % [facility] Hematocrit (Bld) [Volume fraction] 38.8 % 36.0 - 48.0 % [facility] Hemoglobin (Bld) [Mass/Vol] 13.0 g/dL [facility] Interpretation and review of laboratory results Abnormal [facility] Lymphocytes (Bld) [#/Vol] 0.8 10*3/uL Low 1.2 - 3.4 10*3/uL [facility] Lymphocytes/100 WBC (Bld) 17.9 % Low 20.0 - 55.0 % [facility] MCH (RBC) [Entitic mass] 30.6 pg 26.0 - 35.0 PG [facility] MCHC (RBC) [Mass/Vol] 33.5 g/dL [facility] MCV (RBC) [Entitic vol] 91.2 fL [facility] Monocytes (Bld) [#/Vol] 0.1 10*3/uL 0.0 - 0.7 10*3/uL [facility] Monocytes/100 WBC (Bld) 2.3 % 0.0 - 10.0 % [facility] Neutrophils (Bld) [#/Vol] 3.6 10*3/uL 1.4 - 6.5 10*3/uL [facility] Neutrophils/100 WBC (Bld) 79.4 % High 37.0 - 75.0 % [facility] Platelet mean volume (Bld) [Entitic vol] 9.9 fL [facility] Platelets (Bld) [#/Vol] 234 10*3/uL 130 - 400 10*3/uL [facility] RBC (Bld) [#/Vol] 4.25 10*6/uL 4.0 - 5.4 10*6/u L [facility] WBC (Bld) [#/Vol] 4.5 10*3/uL 3.6 - 11.0 10*3/u L [facility] CMP FASTINGon 11-02-2022 A:G RATIO 1.5 RATIO Normal [facility] Comment on above: Performed By: #### A CBC, LIPA2, CMPF #### Testing performed at [address] [address] ALBUMIN 4.4 G/dl Normal 3.5-5.0 [facility] Comment on above: Performed By: #### A CBC, LIPA2, CMPF #### Testing performed at [address] [address] ALP [Catalytic activity/Vol] 87 U/L Normal 38-126 [facility] Comment on above: Performed By: #### A CBC, LIPA2, CMPF #### Testing performed at [address] [address] ALT [Catalytic activity/Vol] 22 U/L Normal <35 [facility] Comment on above: Performed By: #### A CBC, LIPA2, CMPF #### Testing performed at [address] [address] AST [Catalytic activity/Vol] 34 U/L Normal 14-36 [facility] Comment on above: Performed By: #### A CBC, LIPA2, CMPF #### Testing performed at [address] [address] Bilirubin [Mass/Vol] 0.4 mg/dL Normal 0.2-1.3 [facility] Comment on above: Performed By: #### A CBC, LIPA2, CMPF #### [place] [address] Calcium [Mass/Vol] 9.0 mg/dL Normal 8.4-10.2 [facility] Comment on above: Performed By: #### A CBC, LIPA2, CMPF #### Testing performed at [place] [id number] Chloride [Moles/Vol] 106 mmol/L Normal 98-107 [facility] Comment on above: Result Comment: Yessy plascencia note: Triglyceride levels of 600mg/dL or higher may positively bias chloride results by approximately 2.1 mmol Performed By: #### A CBC, LIPA2, CMPF #### [place] [address] CO2 [Moles/Vol] 22 mmol/L Normal 22-30 [facility] Comment on above: Performed By: #### A CBC, LIPA2, CMPF #### [place] [address] Creatinine [Mass/Vol] 0.80 mg/dL Normal 0.70-1.20 [facility] Comment on above: Performed By: #### A CBC, LIPA2, CMPF #### Testing performed at [address] [address] EST. GFR, 106 ml/min/1.73sq.m Normal [facility] Comment on above: Performed By: #### A CBC, LIPA2, CMPF #### Testing performed at [address] [address] EST. GFR,Non 88 ml/min/1.73sq.m Normal [facility] Comment on above: Performed By: #### A CBC, LIPA2, CMPF #### [place] [address] GFR Information Average GFR for 30-39 years old = 107. Normal [facility] Comment on above: Result Comment: [employer]ician alejandra Kidney disease, GFR = <60. Kidney failure, GFR = <15. The GFR estimate is not adjusted for extreme body surface area or acute process, nor has it been validated for women or ethnic groups other than and . Performed By: #### A CBC, LIPA2, CMPF #### Testing performed at [address] [address] Glucose [Mass/Vol] 119 mg/dL High 70-100 [facility] Comment on above: Result Comment: NORMAL <100 mg/dL PREDIABETES 101-126 mg/dL DIABETES 126 mg/dL or higher Performed By: #### A CBC, LIPA2, CMPF #### Testing performed at [address] [address] Potassium [Moles/Vol] 4.2 mmol/L Normal 3.5-5.1 [facility] Comment on above: Performed By: #### A CBC, LIPA2, CMPF #### Testing performed at [address] [address] Protein [Mass/Vol] 7.3 g/dL Normal 6.3-8.2 [facility] Comment on above: Performed By: #### A CBC, LIPA2, CMPF #### Testing performed at [address] [address] Sodium [Moles/Vol] 138 mmol/L Normal 137-145 [facility] Comment on above: Performed By: #### A CBC, LIPA2, CMPF #### Testing performed at [address] [address] Urea nitrogen [Mass/Vol] 8 mg/dL Normal 7-20 [facility] Comment on above: Performed By: #### A CBC, LIPA2, CMPF #### Testing performed at [address] [address] CNPNon 11-02-2022 CNPN Normal [facility] METABOLIC PANE Nestor 11-02-2022 Albumin [Mass/Vol] 4.4 G/dl 3.5 - 5.0 G/dl [facility] Albumin/Globulin [Mass ratio] 1.5 {ratio} RATIO [facility] ALP [Catalytic activity/Vol] 87 U/L [facility] ALT [Catalytic activity/Vol] 22 U/L NINF [facility] AST [Catalytic activity/Vol] 34 U/L [facility] Bilirubin [Mass/Vol] 0.4 mg/dL [facility] Calcium [Mass/Vol] 9.0 mg/dL [facility] Chloride [Moles/Vol] 106 mmol/L [facility] Comment on above: Please note: Triglyc eride levels of 600mg/dL or higher may positively bias chloride results by approximately 2.1 mmol CO2 [Moles/Vol] 22 mmol/L [facility] Creatinine [Mass/Vol] 0.80 mg/dL [facility] GFR COMMENT Average GFR for 30-39 years old = 107. [facility] Comment on above: Chronic Kidney disea se, GFR = <60. Kidney failure, GFR = <15. The GFR estimate is not adjusted for extreme body surface area or acute process, nor has it been validated for women or ethnic groups other than and . GFR/1.73 sq M.predicted among blacks MDRD (S/P/Bld) [Vol rate/Area] 106 mL/min/{1.73_m2} ml/min/1.73sq.m [facility] GFR/1.73 sq M.predicted among non-blacks MDRD (S/P/Bld) [Vol rate/Area] 88 mL/min/{1.73_m2} ml/min/1.73sq.m [facility] Glucose post fast [Mass/Vol] 119 mg/dL High [facility] Comment on above: NORMAL <100 mg/dL PREDIABETES 101-126 mg/dL DIABETES 126 mg/dL or higher Interpretation and review of laboratory results Abnormal [facility] Potassium [Moles/Vol] 4.2 mmol/L [facility] Protein [Mass/Vol] 7.3 g/dL [facility] Sodium [Moles/Vol] 138 mmol/L [facility] Urea nitrogen [Mass/Vol] 8 mg/dL [facility] HCG ( test) Ql (U)o n 11-02-2022 [facility] HCG QUALITATIVE, URINEon HCG ( test) Ql (U) Negative NEGATIVE [facility] LACTATE, BLOODon 11-02-2022 Lactate [Moles/Vol] 1.3 mmol/L 0.7 - 2.0 mmol/L [facility] LACTATE,BLOODon 11-02-2022 Lactate [Moles/Vol] 1.3 mmol/L Normal 0.7-2.0 [facility] Comment on above: Performed By: #### L ACTAC #### Testing performed at [address] [address] LIPASEon 11-02-2022 Lipase [Catalytic activity/Vol] 105 U/L 23 - 300 U/L [facility] LIPASE,SERUMon 11-02-2022 LIPASE,SERUM 105 U/L Normal 23-300 [facility] Comment on above: Performed By: #### A CBC, LIPA2, CMPF #### Testing performed at [address] [address] No Panel Informationon 11-02 [facility] RAD - MISCon 11-02-2022 RAD - MISC [id number] B2#[id number]:[id number] Normal [facility] URINALYSIS, MACROon 11-03-19 23 Bilirubin Ql (U) Negative NEGATIVE [facility] Clarity (U) CLEAR CLEAR [facility] Color (U) YELLOW YELLOW [facility] Glucose Test strip (U) [Mass/Vol] Negative NEGATIVE mg/dl [facility] Hemoglobin Ql (U) Negative NEGATIVE [facility] Interpretation and review of laboratory results Abnormal [facility] Ketones (U) [Mass/Vol] Negative NEGATIVE mg/dl [facility] Leukocyte esterase Test strip Ql (U) Negative NEGATIVE [facility] Nitrite Ql (U) Negative NEGATIVE [facility] pH (U) 8.5 [pH] High 5.0 - 7.0 [facility] Protein Ql (U) Negative NEGATIVE mg/dl [facility] Specific gravity (U) [Rel density] 1.020 1.010 - 1.025 [facility] Urobilinogen (U) [Mass/Vol] 1.0 mg/dL [facility] URINE HCG QUALon 11-02-2022 Beta HCG ( test) Ql (U) Negative Normal NEGATIVE [facility] Comment on above: Performed By: #### U HCGT, UMAC #### Testing performed at [address] [address] URINE MACROSCOPICon 11-03-19 Bilirubin Ql (U) Negative Normal NEGATIVE [facility] Comment on above: Performed By: #### U HCGT, UMAC #### Testing performed at [address] [address] Clarity (U) CLEAR Normal CLEAR [facility] Comment on above: Performed By: #### U HCGT, UMAC #### Testing performed at [address] [address] Color (U) YELLOW Normal YELLOW [facility] Comment on above: Performed By: #### U HCGT, UMAC #### Testing performed at [address] [address] Glucose Ql (U) Negative Normal NEGATIVE [facility] Comment on above: Performed By: #### U HCGT, UMAC #### Testing performed at [address] [address] pH (U) 8.5 [pH] High 5.0-7.0 [facility] Comment on above: Performed By: #### U HCGT, UMAC #### Testing performed at [address] [address] URINE HEMOGLOBIN Negative Normal NEGATIVE [facility] Comment on above: Performed By: #### U HCGT, UMAC #### Testing performed at [address] [place] [address] URINE KETONE Negative Normal NEGATIVE [facility] Comment on above: Performed By: #### U HCGT, UMAC #### Testing performed at [address] [address] URINE LEUKOTEST Negative Normal NEGATIVE [facility] Comment on above: Performed By: #### U HCGT, UMAC #### Testing performed at [address] [address] URINE NITRATES Negative Normal NEGATIVE [facility] Comment on above: Performed By: #### U HCGT, UMAC #### Testing performed at [address] [address] URINE SPEC GRAVITY 1.020 Normal 1.010-1.025 [facility] Comment on above: Performed By: #### U HCGT, UMAC #### Testing performed at [address] [address] URINE TOTAL PROTEIN Negative Normal NEGATIVE [facility] Comment on above: Performed By: #### U HCGT, UMAC #### Testing performed at [address] [address] Urobilinogen Qn (U) 1.0 {Munir'U}/dL Normal 0.2-1.0 [facility] Comment on above: Performed By: #### U HCGT, UMAC #### Testing performed at [address] [address] CBC with Auto Differentialon 10-31-2022 Basophils (Bld) [#/Vol] [facility] Basophils/100 WBC (Bld) 0 % 0 - 2 % [facility] Eosinophils (Bld) [#/Vol] 0.03 10*3/uL [facility] Eosinophils/100 WBC (Bld) 0 % Low 1 - 4 % [facility] Erythrocyte distribution width (RBC) [Ratio] 12.8 % 11.8 - 14.4 % [facility] Hematocrit (Bld) [Volume fraction] 38.9 % 36.3 - 47.1 % [facility] Hemoglobin (Bld) [Mass/Vol] 13.3 g/dL 11.9 - 15.1 g/dL [facility] Immature granulocytes (Bld) [#/Vol] [facility] Immature granulocytes/100 WBC (Bld) 0 % 0 [facility] Interpretation and review of laboratory results Abnormal [facility] Lymphocytes/100 WBC (Bld) 19 % Low 24 - 43 % [facility] Lymphocytes/100 WBC (Bld) 1.46 % [facility] MCH (RBC) [Entitic mass] 30.6 pg 25.2 - 33.5 pg [facility] MCHC (RBC) [Mass/Vol] 34.2 g/dL 28.4 - 34.8 g/dL [facility] MCV (RBC) [Entitic vol] 89.4 fL 82.6 - 102.9 fL [facility] Monocytes/100 WBC (Bld) 5 % 3 - 12 % [facility] Monocytes/100 WBC (Bld) 0.41 % [facility] Neutrophils/100 WBC (Bld) 76 % High 36 - 65 % [facility] Nucleated RBC/100 WBC (Bld) [Ratio] 0.0 % 0.0 per 100 WBC [facility] Platelet mean volume (Bld) [Entitic vol] 12.0 fL 8.1 - 13.5 fL [facility] Platelets (Bld) [#/Vol] 246 10*3/uL [facility] RBC (Bld) [#/Vol] 4.35 10*6/uL 3.95 - 5.11 m/uL [facility] Segmented neutrophils/100 WBC (Bld) 5.66 % [facility] WBC other (Bld) [#/Vol] 7.6 [facility] CBC with Diffon 10-31-2022 Abs. Basophil <0.03 Normal 0.00-0.20 [facility] Comment on above: Performed By: #### L JUDITH BROWN, CDP #### [facility] [address] [place] [address] [place] [address] Dental Assistant Instructor: Baldomero Espinoza MD Abs.Imm.Granulocyte <0.03 Normal 0.00-0.30 [facility] Comment on above: Performed By: #### L JUDITH BROWN, CDP #### [facility] [address] [place] [address] [address] [place] [id number] Dental Assistant Instructor: Baldomero Espinoza MD Abs.Neutrophil (Seg) 5.66 k/uL Normal 1.50-8.10 [facility] Comment on above: Performed By: #### L JUDITH BROWN, CDP #### [address] [place] [address] Dental Assistant Instructor: Baldomero Espinoza MD Basophils/100 WBC (Bld) 0 % Normal 0-2 [facility] Comment on above: Performed By: #### L IP, CP, CDP #### [address] [place], [place] [phone] Dental Assistant Instructor: Baldomero Espinoza MD Eosinophils (Bld) [#/Vol] 0.03 10*3/uL Normal 0.00-0.44 [facility] Comment on above: Performed By: #### L IP, CP, CDP #### [address] [place], [facility]83 Dental Assistant Instructor: Baldomero Espinoza MD Eosinophils/100 WBC (Bld) 0 % Low 1-4 [facility] Comment on above: Performed By: #### L IP, CP, CDP #### [address] [place], [facility]83 Dental Assistant Instructor: Baldomero Espinoza MD Erythrocyte distribution width (RBC) [Ratio] 12.8 % Normal 11.8-14.4 [facility] Comment on above: Performed By: #### L IP, CP, CDP #### [address] [place], [facility]83 Dental Assistant Instructor: Baldomero Espinoza MD Hematocrit (Bld) [Volume fraction] 38.9 % Normal 36.3-47.1 [facility] Comment on above: Performed By: #### L IP, CP, CDP #### [address] [place], [facility]83 Dental Assistant Instructor: Baldomero Espinoza MD Hemoglobin (Bld) [Mass/Vol] 13.3 g/dL Normal 11.9-15.1 [facility] Comment on above: Performed By: #### L IP, CP, CDP #### [address] [place], [place] [id number] Dental Assistant Instructor: Baldomero Espinoza MD Immature granulocytes/100 WBC (Bld) 0 % Normal 0 [facility] Comment on above: Performed By: #### L IP, CP, CDP #### [facility] [address] [place], [place] 3013083 Dental Assistant Instructor: Baldomero Espinoza MD Lymphocytes (Bld) [#/Vol] 1.46 10*3/uL Normal 1.10-3.70 [facility] Comment on above: Performed By: #### L IP, CP, CDP #### [facility] [address] [place], [facility]83 Dental Assistant Instructor: Baldomero Espinoza MD Lymphocytes/100 WBC (Bld) 19 % Low 24-43 [facility] Comment on above: Performed By: #### L IP, CP, CDP #### [facility] [address] [place], [facility]83 Dental Assistant Instructor: Baldomero Espinoza MD MCH (RBC) [Entitic mass] 30.6 pg Normal 25.2-33.5 [facility] Comment on above: Performed By: #### L IP, CP, CDP #### [address] [place], [facility]83 Dental Assistant Instructor: Baldomero Espinoza MD MCHC (RBC) [Mass/Vol] 34.2 g/dL Normal 28.4-34.8 [facility] Comment on above: Performed By: #### L IP, CP, CDP #### [address] [place], [facility]83 Dental Assistant Instructor: Baldomero Espinoza MD MCV (RBC) [Entitic vol] 89.4 fL Normal 82.6-102.9 [facility] Comment on above: Performed By: #### L IP, CP, CDP #### [address] [place], [facility]83 Dental Assistant Instructor: Baldomero Espinoza MD Monocytes (Bld) [#/Vol] 0.41 10*3/uL Normal 0.10-1.20 [facility] Comment on above: Performed By: #### L IP, CP, CDP #### [facility] [address] [place], [place] 28[address]83 Dental Assistant Instructor: Baldomero Espinoza MD Monocytes/100 WBC (Bld) 5 % Normal 3-12 [facility] Comment on above: Performed By: #### L IP, CP, CDP #### [facility] [address] [place], [place] 5277783 Dental Assistant Instructor: Baldomero Espinoza MD Neutrophil (Seg) 76 % High 36-65 [facility] Comment on above: Performed By: #### L IP, CP, CDP #### [facility] [address] [place], [place] [phone] Dental Assistant Instructor: Baldomero Espinoza MD NRBC Automated 0.0 per 100 WBC Normal 0.0 [facility] Comment on above: Performed By: #### L IP, CP, CDP #### [address] [place], [facility]83 Dental Assistant Instructor: Baldomero Espinoza MD Platelet mean volume (Bld) [Entitic vol] 12.0 fL Normal 8.1-13.5 [facility] Comment on above: Performed By: #### L IP, CP, CDP #### [address] [place], [place] [phone] Dental Assistant Instructor: Baldomero Espinoza MD Platelets (Bld) [#/Vol] 246 10*3/uL Normal 138-453 [facility] Comment on above: Performed By: #### L IP, CP, CDP #### [address] [place], [place] [phone] Dental Assistant Instructor: Baldomero Espinoza MD RBC (Bld) [#/Vol] 4.35 10*6/uL Normal 3.95-5.11 [facility] Comment on above: Performed By: #### L IP, CP, CDP #### [address] [place], [place] 2009783 Dental Assistant Instructor: Baldomero Espinoza MD WBC (Bld) [#/Vol] 7.6 10*3/uL Normal 3.5-11.3 [facility] Comment on above: Performed By: #### L IP, CP, CDP #### [facility] [address] [place] [address] Dental Assistant Instructor: Baldomero Espinoza MD [facility] Albumin [Mass/Vol] 4.5 g/dL 3.5 - 5.2 g/dL [facility] Albumin/Globulin [Mass ratio] 1.7 {ratio} 1.0 - 2.5 [facility] ALP [Catalytic activity/Vol] 76 U/L 35 - 104 U/L [facility] ALT [Catalytic activity/Vol] 14 U/L 5 - 33 U/L [facility] Anion gap [Moles/Vol] 12 mmol/L 9 - 17 mmol/L [facility] AST [Catalytic activity/Vol] 24 U/L NINF - 32 U/L [facility] Bilirubin [Mass/Vol] 0.3 mg/dL 0.3 - 1.2 mg/dL [facility] Calcium [Mass/Vol] 9.1 mg/dL 8.6 - 10.4 mg/dL [facility] Chloride [Moles/Vol] 106 mmol/L 98 - 107 mmol/L [facility] CO2 [Moles/Vol] 18 mmol/L Low 20 - 31 mmol/L [facility] Creatinine [Mass/Vol] 0.7 mg/dL 0.5 - 0.9 mg/dL [facility] GFR/1.73 sq M.predicted MDRD (S/P/Bld) [Vol rate/Area] - PINF [facility] Comment on above: These results [...] [Mass/Vol] 87 mg/dL 70 - 99 mg/dL [facility] Interpretation and review of laboratory results Abnormal [facility] Potassium [Moles/Vol] 3.8 mmol/L 3.7 - 5.3 mmol/L [facility] Protein [Mass/Vol] 7.2 g/dL 6.4 - 8.3 g/dL [facility] Sodium [Moles/Vol] 136 mmol/L 135 - 144 mmol/L [facility] Urea nitrogen [Mass/Vol] 7 mg/dL 6 - 20 mg/dL [facility] Urea nitrogen/Creatinine [Mass ratio] 10 mg/mg 9 - 20 [facility] Comp Metabolic Profon 2022 Albumin [Mass/Vol] 4.5 g/dL Normal 3.5-5.2 [facility] Comment on above: Performed By: #### L JUDITH BROWN, CDP #### [facility] [address] [place] [address] Dental Assistant Instructor: Baldomero Espinoza MD Albumin/Glob Ratio 1.7 Normal 1.0-2.5 [facility] Comment on above: Performed By: #### L JUDITH BROWN, CDP #### [facility] [address] [place], [place] [address]3783 Dental Assistant Instructor: Baldomero Espinoza MD Alkaline Phos 76 U/L Normal 35-104 [facility] Comment on above: Performed By: #### L JUDITH BROWN, CDP #### [facility] [address] [place] [address] Dental Assistant Instructor: Baldomero Espinoza MD ALT [Catalytic activity/Vol] 14 U/L Normal 5-33 [facility] Comment on above: Performed By: #### L JUDITH BROWN, CDP #### [facility] [address] [place] [address] Dental Assistant Instructor: Baldomero Espinoza MD Anion gap [Moles/Vol] 12 mmol/L Normal 9-17 [facility] Comment on above: Performed By: #### L IP, CP, CDP #### [facility] [address] [place], [place] 4253483 Dental Assistant Instructor: Baldomero Espinoza MD AST [Catalytic activity/Vol] 24 U/L Normal <32 [facility] Comment on above: Performed By: #### L IP, CP, CDP #### [facility] [address] [place], [place] 5151883 Dental Assistant Instructor: Baldomero Espinoza MD Bilirubin [Mass/Vol] 0.3 mg/dL Normal 0.3-1.2 [facility] Comment on above: Performed By: #### L IP, CP, CDP #### [address] [place], [place] 4706583 Dental Assistant Instructor: Baldomero Espinoza MD BUN/CRE Ratio 10 Normal 9-20 [facility] Comment on above: Performed By: #### L IP, CP, CDP #### [address] [place], [place] 7017383 Dental Assistant Instructor: Baldomero Espinoza MD Calcium [Mass/Vol] 9.1 mg/dL Normal 8.6-10.4 [facility] Comment on above: Performed By: #### L IP, CP, CDP #### [address] [place], [place] [address]83 Dental Assistant Instructor: Baldomero Espinoza MD Chloride [Moles/Vol] 106 mmol/L Normal 98-107 [facility] Comment on above: Performed By: #### L IP, CP, CDP #### [facility] [address] [place] [address] [place]. [place], [place] 9703983 Dental Assistant Instructor: Baldomero Espinoza MD CO2 [Moles/Vol] 18 mmol/L Low 20-[address] [facility] Comment on above: Performed By: #### L IP, CP, CDP #### [facility] [address] [place] [address] [place] [address] Dental Assistant Instructor: Baldomero Espinoza MD Creatinine [Mass/Vol] 0.7 mg/dL Normal 0.5-0.9 [facility] Comment on above: Performed By: #### L IP CP, CDP #### [facility] [address] [place] [address] [place] [address] Dental Assistant Instructor: Baldomero Espinoza MD GFR/1.73 sq M.predicted among non-blacks MDRD (S/P/Bld) [Vol rate/Area] mL/min/{1.73_m2} Normal >60 [facility] Comment on above: Result Comment: These [...] By: #### L IP, CP, CDP #### [facility] [address] [place] [address] [place] [address] Dental Assistant Instructor: Baldomero Espinoza MD Glucose [Mass/Vol] 87 mg/dL Normal 70-99 [facility] Comment on above: Performed By: #### L IP CP, CDP #### [address] [place] [address] Dental Assistant Instructor: Baldomero Espinoza MD Potassium [Moles/Vol] 3.8 mmol/L Normal 3.7-5.3 [facility] Comment on above: Performed By: #### L IP, CP, CDP #### [address] [place] [address] Dental Assistant Instructor: Baldomero Espinoza MD Protein [Mass/Vol] 7.2 g/dL Normal 6.4-8.3 [facility] Comment on above: Performed By: #### L IP, CP, CDP #### [facility] [address] [place] [address] [place], [place] [phone] Dental Assistant Instructor: Baldomero Espinoza MD Sodium [Moles/Vol] 136 mmol/L Normal 135-144 [facility] Comment on above: Performed By: #### L JUDITH BROWN, CDP #### [facility] [address] [place], [place] 8409783 Dental Assistant Instructor: Baldomero Espinoza MD Urea nitrogen [Mass/Vol] 7 mg/dL Normal 6-20 [facility] Comment on above: Performed By: #### L JUDITH BROWN, CDP #### [facility] [address] [place], [place] 5429783 Dental Assistant Instructor: Baldomero Espinoza MD Lipaseon 10-31-2022 Lipase [Catalytic activity/Vol] 43 U/L Normal 13-60 [facility] Comment on above: Performed By: #### L JUDITH BROWN, CDP #### [facility] [address] [place], [facility]83 Dental Assistant Instructor: Baldomero Espinoza MD Lipase [Catalytic activity/Vol] 43 U/L 13 - 60 U/L [facility] Microscopic Urinalysison Bacteria LM Ql (Urine sed) 1+ Abnormal None [facility] Epithelial cells LM.HPF (Urine sed) [#/Area] 2 TO 5 [facility] Interpretation and review of laboratory results Abnormal [facility] RBC LM.HPF (Urine sed) [#/Area] None [facility] WBC LM.HPF (Urine sed) [#/Area] None [facility] No Panel Informationon 10-31 [facility] UA w/Reflex Cultureon 2022 Bilirubin, SemiQt,Ur Negative Normal NEG [facility] Comment on above: Performed By: #### U MICAO, UAX ####[facility] [place] [address] Lab Director: Baldomero Espinoza MD Blood, Urine Negative Normal NEG [facility] Comment on above: Performed By: #### U MICAO, UAX ####[address] [place] [address] Lab Director: Baldomero Espinoza MD Clarity (U) Clear Normal CLEAR [facility] Comment on above: Performed By: #### U MICAO, UAX ####[address] [place] [address] Lab Director: Baldomero Espinoza MD Color (U) Yellow Normal YEL [facility] Comment on above: Performed By: #### U MICAO, UAX ####[address] [place] [address] Lab Director: Baldomero Espinoza MD Glucose Ql (U) Negative Normal NEG [facility] Comment on above: Performed By: #### U MICAO, UAX ####[address] [place] [address] Lab Director: Baldomero Espinoza MD Ketones Ql (U) Negative Normal NEG [facility] Comment on above: Performed By: #### U MICAO, UAX ####[address] [place] [address] Lab Director: Baldomero Espinoza MD Leukocyte esterase Test strip Ql (U) Negative Normal NEG [facility] Comment on above: Performed By: #### U MICAO, UAX ####[address] [place] [address] Lab Director: Baldomero Espinoza MD Nitrite,Ur Negative Normal NEG [facility] Comment on above: Performed By: #### U MICAO, UAX ####[address] [place] [address] Lab Director: Baldomero Espinoza MD PH,Ur 7.0 Normal 5.0-9.0 [facility] Comment on above: Performed By: #### U MICAO, UAX ####[facility] , [place] 489[address]83 [facility] Director: Baldomero Espinoza MD Protein Ql (U) Negative Normal NEG [facility] Comment on above: Performed By: #### U MICAO, UAX ####[address] , [place] 08[address]683 [facility] Director: aBldomero Espinoza MD Spec. [place],Ur 1.015 Normal 1.010-1.020 [facility] Comment on above: Performed By: #### U MICAO, UAX ####[address] , [place] 88[address] lab Director: Baldomero Espinoza MD Urobilinogen,Ur Normal Normal 0.0-1.[address] [facility] Comment on above: Performed By: #### U MICAO, UAX ####[address] , [place] 13[address]83 lab Director: Baldomero Espinoza MD Urinalysis with Reflex to Cu ltureon 10-31-2022 Bilirubin Ql (U) Negative NEGATIVE [facility] Clarity (U) Clear Clear [facility] Color (U) Yellow Yellow [facility] Glucose Test strip (U) [Mass/Vol] Negative NEGATIVE mg/dL [facility] Hemoglobin Auto test strip Ql (U) Negative NEGATIVE [facility] Ketones (U) [Mass/Vol] Negative NEGATIVE mg/dL [facility] Leukocyte esterase Test strip Ql (U) Negative NEGATIVE [facility] Nitrite Ql (U) Negative NEGATIVE [facility] pH (U) 7.0 [pH] 5.0 - 9.0 [facility] Protein (U) [Mass/Vol] Negative NEGATIVE mg/dL [facility] Specific gravity (U) [Rel density] 1.015 1.010 - 1.020 [facility] Urobilinogen Qn (U) Normal 0.0 - 1.0 EU/dL [facility] Urinalysis,Microon 3 Bacteria 1+ Abnormal NONE [facility] Comment on above: Performed By: #### U MICAO, UAX ####[facility] [place] [address] [facility] Director: Baldomero Espinoza MD Epithelial cells LM Ql (Urine sed) 2 TO 5 Normal 0-25 [facility] Comment on above: Performed By: #### U MICAO, UAX ####[facility] [place] [address] lab Director: Baldomero Espinoza MD Urine RBC's None Normal 0-2 [facility] Comment on above: Performed By: #### U MICAO, UAX ####[facility] , [place] [address] lab Director: Baldomero Espinoza MD Urine WBC's None Normal 0-5 [facility] Comment on above: Performed By: #### U MICAO, UAX ####[facility] [place] [address] lab Director: Baldomero Espinoza MD XR [...] E Regalado MD 10/31/22 Final result Normal [facility] 1. No acute vertebral body height loss or malalignment within the lumbar spine. 2. Mild anterior wedging of lower thoracic vertebral bodies, similar to the prior CT of 07/27/2021. 3. Prior cholecystectomy. Moderate stool burden. [facility] EXAMINATION: 5 XRAY VIEWS OF [...] sacral arcuate lines appear intact. Pelvic phleboliths. [facility] Luis E Regalado MD - [...] Prior cholecystectomy. Moderate stool burden. [facility] Radiology Study observation (narrative) [facility] XR LUMBAR SPINE (MIN 4 VIEWS )Ordered By: Luis E Regalado on 10-31-2022 [facility] Work Phone: Transfer Inon 10-30-2022 Transfer In [id number] 6#1.00CD:127 [facility] Discharge Instructionson Discharge Instructions [id number] 183#1.00CD:127 [facility] Comment on above: Other Comment: wrong folder [facility] Auth for Release of Medical Recordson 10-28-2022 Auth for Release of Medical Records [id number] 7#1.00CD:127 [facility] CBC panel Auto (Bld)on 10-28 Erythrocyte distribution width (RBC) [Ratio] 13.2 % Normal 11.5-15.0 [facility] Comment on above: Order Comment: Speci men Type: BLOOD SPECIMENOrdering Facility: [facility] Address: [address] [place] [address] Performed By: #### 5 8410-2 ####[facility] LABORATORYCLIA [id number] [place] [address] [place] Hematocrit (Bld) [Volume fraction] 33.4 % Low 36.0-46.0 [facility] Comment on above: Order Comment: Speci men Type: BLOOD SPECIMENOrdering Facility: [facility] Address: [address] [place] [address] Performed By: #### 5 8410-2 ####[facility] LABORATORYCLIA [id number] [place] [address] [place] Hemoglobin (Bld) [Mass/Vol] 10.9 g/dL Low 11.5-15.5 [facility] Comment on above: Order Comment: Speci men Type: BLOOD SPECIMENOrdering Facility: [facility] Address: [address] [address] Performed By: #### 5 8410-2 ####[facility] [id number] [address] [facility] MCH (RBC) [Entitic mass] 30.4 pg Normal 26.0-34.0 [facility] Comment on above: Order Comment: Speci men Type: BLOOD SPECIMENOrdering Facility: [facility] Address: [address] [address] Performed By: #### 5 8410-2 ####[facility] [id number] [address] [place] MCHC (RBC) [Mass/Vol] 32.6 g/dL Normal 30.5-36.0 [facility] Comment on above: Order Comment: Speci men Type: BLOOD SPECIMENOrdering Facility: [facility] Address: [address] [address] Performed By: #### 5 8410-2 ####[facility] [id number] [address] [place] MCV (RBC) [Entitic vol] 93.3 fL Normal 80.0-100.0 [facility] Comment on above: Order Comment: Speci men Type: BLOOD SPECIMENOrdering Facility: [facility] Address: [address] [address] Performed By: #### 5 8410-2 ####[facility] LABORATORYIA [id number] [address] [place] Nucleated RBC (Bld) [#/Vol] 10*3/uL Normal <0.01 [facility] Comment on above: Order Comment: Speci men Type: BLOOD SPECIMENOrdering Facility: [facility] Address: [address] [address] Performed By: #### 5 8410-2 ####[facility] [id number] [place] [address] [place] Platelet mean volume (Bld) [Entitic vol] 11.7 fL Normal 9.0-12.7 [facility] Comment on above: Order Comment: Speci men Type: BLOOD SPECIMENOrdering Facility: [facility] Address: [address] [address] Performed By: #### 5 8410-2 ####[facility] LABORATORYIA [id number] [place] [address] [place] Platelets (Bld) [#/Vol] 174 10*3/uL Normal 150-400 [facility] Comment on above: Order Comment: Speci men Type: BLOOD SPECIMENOrdering Facility: [facility] Address: [address] [place] [address] Performed By: #### 5 8410-2 ####[facility] [id number] [place] [address] [place] RBC (Bld) [#/Vol] 3.58 10*6/uL Low 3.90-5.20 [facility] Comment on above: Order Comment: Speci men Type: BLOOD SPECIMENOrdering Facility: [facility] Address: [address] [place] [address] Performed By: #### 5 8410-2 ####[facility] [id number] [place] [id number] [place] WBC (Bld) [#/Vol] 4.62 10*3/uL Normal 3.70-11.00 [facility] Comment on above: Order Comment: Speci men Type: BLOOD SPECIMENOrdering Facility: [facility] Address: [address] [place] [address] Performed By: #### 5 8410-2 ####[facility]ITAL[facility] [id number] [place] [address] [place] CNDSon 10-28-2022 CNDS Normal [facility] Comprehensive metabolic 2000 panelon 10-28-2022 Albumin [Mass/Vol] 3.2 g/dL Low 3.9-4.9 [facility] Comment on above: Order Comment: Speci men Type: BLOOD SPECIMENOrdering Facility: [facility] Address: [address] [address] Performed By: #### 2 4323-8, , 2776-02 ####[facility] LABORATORYCLIA [id number] [place] [address] [place] ALP [Catalytic activity/Vol] 54 U/L Normal 34-123 [facility] Comment on above: Order Comment: Speci men Type: BLOOD SPECIMENOrdering Facility: [facility] Address: [address] [place] [address] Performed By: #### 2 4323-8, , 2776-02 ####[facility] LABORATORYCLIA [id number] [place] [address] [place] ALT [Catalytic activity/Vol] 11 U/L Normal 7-38 [facility] Comment on above: Order Comment: Speci men Type: BLOOD SPECIMENOrdering Facility: [facility] Address: [address] [place] [address] Performed By: #### 2 4323-8, , 2776-02 ####[facility] LABORATORYCLIA [id number] [place] [address] [place] Anion gap [Moles/Vol] 9 mmol/L Normal 9-18 [facility] Comment on above: Order Comment: Speci men Type: BLOOD SPECIMENOrdering Facility: [facility] Address: [address] Performed By: #### 2 4323-8, , 2776-02 ####[facility] LABORATORYCLIA [id number] [place] [address] [place] AST [Catalytic activity/Vol] 23 U/L Normal 13-35 [facility] Comment on above: Order Comment: Speci men Type: BLOOD SPECIMENOrdering Facility: [facility] Address: [address] [place], [place] [address] Performed By: #### 2 4323-8, , 2776-02 ####[facility] LABORATORYCLIA [id number] [place] [address] [place] Bilirubin [Mass/Vol] 0.3 mg/dL Normal 0.2-1.3 [facility] Comment on above: Order Comment: Speci men Type: BLOOD SPECIMENOrdering Facility: [facility] Address: [address] [address] Performed By: #### 2 4323-8, , 2776-02 ####[facility] HOSPITALIA [id number] [place] [address] [place] Calcium [Mass/Vol] 8.3 mg/dL Low 8.5-10.2 [facility]ital Comment on above: Order Comment: Speci men Type: BLOOD SPECIMENOrdering Facility: [facility] Address: [address] [address] Performed By: #### 2 4323-8, , 2776-02 ####[facility] HOSPITALIA [id number] [place] [address] [place] Chloride [Moles/Vol] 108 mmol/L High 97-105 [facility] Comment on above: Order Comment: Speci men Type: BLOOD SPECIMENOrdering Facility: [facility] Address: [address] [place] [address] Performed By: #### 2 4323-8, , 2776-02 ####[facility] LABORATORYIA [id number] [place] [address] [place] CO2 [Moles/Vol] 21 mmol/L Low 22-30 [facility] ital Comment on above: Order Comment: Speci men Type: BLOOD SPECIMENOrdering Facility: [facility] Address: [address] [place] [address] Performed By: #### 2 4323-8, , 2776-02 ####[facility] LABORATORYCLIA [id number] [facility] [place] [address] [place] Creatinine [Mass/Vol] 0.76 mg/dL Normal 0.58-0.96 [facility] Comment on above: Order Comment: Geraldo marrero Type: BLOOD SPECIMENOrdering Facility: [facility] Address: [address] [phone] Performed By: #### 2 4323-8, , 2776-02 ####[facility] LABORATORYCLIA [id number] [place] [address] [place] [address] [facility] Creatinine and Glomerular filtration rate.predicted panel (S/P/Bld) 106 mL/min/1.73m??? Normal >=60 [facility] Comment on above: Order Comment: [facility] Type: BLOOD SPECIMENOrdering Facility: [facility] Address: [address] [place], [place] [phone] Result Comment: Jessica mated Glomerular Filtration Rate [...] Performed By: #### 2 4323-8, , 2776-02 ####[facility] LABORATORYCLIA [id number] [place] [address] [place] Glucose [Mass/Vol] 84 mg/dL Normal 74-99 [facility] Comment on above: Order Comment: Geraldo [facility] Type: BLOOD SPECIMENOrdering Facility: [facility] Address: [address] [place], [place] [phone] Result Comment: The [place] Diabetes Association (ADA) provides guidance for cutoff [...] Standards of Medical Care in Diabetes 2016, [place] Diabetes Association. Diabetes Care. 2016.39(Suppl 1). Performed By: #### 2 4323-8, , 2776-02 ####[facility] LABORATORYCLIA [id number] [place] [address] [place] Potassium [Moles/Vol] 4.1 mmol/L Normal 3.7-5.1 [facility] Comment on above: Order Comment: Speci men Type: BLOOD SPECIMENOrdering Facility: [facility] Address: [address] [place] [address] Performed By: #### 2 4323-8, , 2776-02 ####[facility] HOSPITALIA [id number] [place] [address] [place] Protein [Mass/Vol] 5.2 g/dL Low 6.3-8.0 [facility] Comment on above: Order Comment: Lyssai men Type: BLOOD SPECIMENOrdering Facility: [facility] Address: [address] [place] [address] Performed By: #### 2 43238, , 2776-02 ####[facility] HOSPITALIA [id number] [place] [address] [place] Sodium [Moles/Vol] 138 mmol/L Normal 136-144 [facility] Comment on above: Order Comment: Speci men Type: BLOOD SPECIMENOrdering Facility: [facility] Address: [address] [place] [address] Performed By: #### 2 4323-8, , 2776-02 ####[facility] LABORATORYIA [id number] [place] [address] [place] Urea nitrogen [Mass/Vol] 7 mg/dL Normal 7-21 [facility] Comment on above: Order Comment: Speci men Type: BLOOD SPECIMENOrdering Facility: [facility] Address: [address] [place], [place] [address] Performed By: #### 2 4323-8, , 7 ####[facility] HOSPITALIA [id number] [place] [address] [place] Formson 10-28-2022 Forms [id number] E6#1.00CD:127 Normal [facility] Magnesium [facility]28 Magnesium [Mass/Vol] 1.9 mg/dL Normal 1.7-2.3 [facility] Comment on above: Order Comment: Speci men Type: BLOOD SPECIMENOrdering Facility: [facility] Address: [address] [place] [address] Performed By: #### 2 4323-8, , 2776-02 ####[facility] HOSPITALIA [id number] [place] [address] [place] Phosphate SerPl-mCncon 10-28 Phosphate [Mass/Vol] 3.2 mg/dL Normal 2.7-4.8 [facility] Comment on above: Order Comment: Speci men Type: BLOOD SPECIMENOrdering Facility: [facility] Address: [address] [place], [place] [phone] Performed By: #### 2 4323-8, , 2776-02 ####[facility] HOSPITALIA [id number] [place] [address] [place] ANES POSTPROC EVALon 023 ANES POSTPROC EVAL Normal [facility] ANES PRE-OPon 10-27-2022 ANES PRE-OP Normal [facility] CBC panel Auto (Bld)on 10-27 Erythrocyte distribution width (RBC) [Ratio] 13.3 % Normal 11.5-15.0 [facility] Comment on above: Order Comment: Speci men Type: BLOOD SPECIMENOrdering Facility: [facility] Address: [address] [address] Performed By: #### 5 8410-2 ####[facility] HOSPITALIA [id number] [place] [address] [place] Hematocrit (Bld) [Volume fraction] 33.6 % Low 36.0-46.0 [facility] Comment on above: Order Comment: Speci men Type: BLOOD SPECIMENOrdering Facility: [facility] Address: [address] [address] Performed By: #### 5 8410-2 ####[facility]PITALIA [id number] [place] [address] [place] Hemoglobin (Bld) [Mass/Vol] 10.9 g/dL Low 11.5-15.5 [facility] Comment on above: Order Comment: Speci men Type: BLOOD SPECIMENOrdering Facility: [facility] Address: [address] [address] Performed By: #### 5 8410-2 ####[facility] HOSPITALIA [id number] [place] [address] [place] MCH (RBC) [Entitic mass] 30.5 pg Normal 26.0-34.0 [facility] Comment on above: Order Comment: Speci men Type: BLOOD SPECIMENOrdering Facility: [facility] Address: [address] [address] Performed By: #### 5 8410-2 ####[facility]OSPITALIA [id number] [place] [address] [place] MCHC (RBC) [Mass/Vol] 32.4 g/dL Normal 30.5-36.0 [facility] Comment on above: Order Comment: Speci men Type: BLOOD SPECIMENOrdering Facility: [facility] Address: [address] [place] [address] Performed By: #### 5 8410-2 ####[facility] LABORATORYIA [id number] [place] [address] [place] MCV (RBC) [Entitic vol] 94.1 fL Normal 80.0-100.0 [facility] Comment on above: Order Comment: Speci men Type: BLOOD SPECIMENOrdering Facility: [facility] Address: [address] [address] Performed By: #### 5 8410-2 ####[facility] LABORATORYCLIA [id number] [place] [address] [place] Nucleated RBC (Bld) [#/Vol] 10*3/uL Normal <0.01 [facility] Comment on above: Order Comment: Speci men Type: BLOOD SPECIMENOrdering Facility: [facility] Address: [address] [address] Performed By: #### 5 8410-2 ####[facility]ITALIA [id number] [place] [address] [place] Platelet mean volume (Bld) [Entitic vol] 11.7 fL Normal 9.0-12.7 [facility] Comment on above: Order Comment: Speci men Type: BLOOD SPECIMENOrdering Facility: [facility] Address: [address] [address] Performed By: #### 5 8410-2 ####[facility]ITALIA [id number] [place] [address] [place] Platelets (Bld) [#/Vol] 160 10*3/uL Normal 150-400 [facility] Comment on above: Order Comment: Speci men Type: BLOOD SPECIMENOrdering Facility: [facility] Address: [address] Performed By: #### 5 8410-2 ####[facility] LABORATORYIA [id number] [place] [address] [place] RBC (Bld) [#/Vol] 3.57 10*6/uL Low 3.90-5.20 [facility] Comment on above: Order Comment: Speci men Type: BLOOD SPECIMENOrdering Facility: [facility] Address: [address] Performed By: #### 5 8410-2 ####[facility] LABORATORYCLIA [id number] [place] [address] [place] WBC (Bld) [#/Vol] 3.53 10*3/uL Low 3.70-11.00 [facility] Comment on above: Order Comment: Speci men Type: BLOOD SPECIMENOrdering Facility: [facility] Address: [address] [place], [place] [address] Performed By: #### 5 8410-2 ####[facility] HOSPITALIA [id number] [place] [address] [place] CONSULT PROGon 10-27-2022 CONSULT PROG Normal [facility] CONS[facility] PROG Normal [facility] Comprehensive metabolic 2000 panelon 10-27-2022 Albumin [Mass/Vol] 3.3 g/dL Low 3.9-4.9 [facility] Comment on above: Order Comment: Speci men Type: BLOOD SPECIMENOrdering Facility: [facility] Address: [address] [place] [address] Performed By: #### 2 777-1, 01791-5, ####[facility]OSPITALIA [id number] [place] [address] [place] ALP [Catalytic activity/Vol] 52 U/L Normal 34-123 [facility] Comment on above: Order Comment: Speci men Type: BLOOD SPECIMENOrdering Facility: [facility] Address: [address] [place] [address] Performed By: #### 2 777-1, 05214-6, ####[facility]OS[facility]ITALIA [id number] [place] [address] [place] ALT [Catalytic activity/Vol] 14 U/L Normal 7-38 [facility] Comment on above: Order Comment: Speci men Type: BLOOD SPECIMENOrdering Facility: [facility] Address: [address] Performed By: #### 2 777-1, , ####[facility] LABORATORYCLIA [id number] [facility] [place] [address] [place] Anion gap [Moles/Vol] 8 mmol/L Low 9-18 [facility] Comment on above: Order Comment: Speci men Type: BLOOD SPECIMENOrdering Facility: [facility] Address: [address] [place] [address] Performed By: #### 2 777-1, , ####[facility] LABORATORYCLIA [id number] [facility] [place] [address] [place] AST [Catalytic activity/Vol] 28 U/L Normal 13-35 [facility] Comment on above: Order Comment: Speci men Type: BLOOD SPECIMENOrdering Facility: [facility] Address: [address] [place] [address] Performed By: #### 2 777-1, , ####[facility]ITALIA [id number] [facility] [address] [place] Bilirubin [Mass/Vol] 0.2 mg/dL Normal 0.2-1.3 [facility] Comment on above: Order Comment: Speci men Type: BLOOD SPECIMENOrdering Facility: [facility] Address: [address] [place] [address] Performed By: #### 2 777-1, , ####[facility]ITALIA [id number] [facility] [address] [place] Calcium [Mass/Vol] 8.1 mg/dL Low 8.5-10.2 [facility] Comment on above: Order Comment: Speci men Type: BLOOD SPECIMENOrdering Facility: [facility] Address: [address] [place] [address] Performed By: #### 2 777-1, , ####[facility] LABORATORYCLIA [id number] [facility] [place] [address] [place] Chloride [Moles/Vol] 110 mmol/L High 97-105 [facility] Comment on above: Order Comment: Speci men Type: BLOOD SPECIMENOrdering Facility: [facility] Address: [address] [place] [address] Performed By: #### 2 777-1, 56075-4, ####[facility] LABORATORYCLIA [id number] [place] [address] [place] CO2 [Moles/Vol] 22 mmol/L Normal 22-30 [facility] Comment on above: Order Comment: Speci men Type: BLOOD SPECIMENOrdering Facility: [facility] Address: [address] [phone] Performed By: #### 2 777-1, 29425-2, ####[facility]OSPITALIA [id number] [place] [address] [place] Creatinine [Mass/Vol] 0.70 mg/dL Normal 0.58-0.96 [facility] Comment on above: Order Comment: Speci men Type: BLOOD SPECIMENOrdering Facility: [facility] Address: [address] [address] [phone] Performed By: #### 2 777-1, , ####[facility]OSPITALIA [id number] [place] [address] [facility] Creatinine and Glomerular filtration rate.predicted panel (S/P/Bld) 117 mL/min/1.73m??? Normal >=60 [facility] l Comment on above: Order Comment: Speci men Type: BLOOD SPECIMENOrdering Facility: [facility] Address: [address] [place], [place] [address] Result Comment: Jessica mated Glomerular Filtration Rate [...] actual GFR. Performed By: #### 2 777-1, 31835-8, ####[facility]ITALIA [id number] [place] [address] [place] Glucose [Mass/Vol] 89 mg/dL Normal 74-99 [facility] Comment on above: Order Comment: Speci men Type: BLOOD SPECIMENOrdering Facility: [facility] Address: [address] [phone] Result Comment: The [place] Diabetes Association (ADA) provides guidance for cutoff [...] Standards of Medical Care in Diabetes 2016, [place] Diabetes Association. Diabetes Care. 2016.39(Suppl 1). Performed By: #### 2 777-1, , ####[facility]ITALIA [id number] [place] [address] [place] Potassium [Moles/Vol] 4.1 mmol/L Normal 3.7-5.1 [facility] Comment on above: Order Comment: Speci men Type: BLOOD SPECIMENOrdering Facility: [facility] Address: [address] [place] [address] Performed By: #### 2 777-1, 35034-5, ####[facility]ITALIA [id number] [facility] [place] [address] [place] Protein [Mass/Vol] 5.0 g/dL Low 6.3-8.0 [facility] Comment on above: Order Comment: Speci men Type: BLOOD SPECIMENOrdering Facility: [facility] Address: [address] [place] [address] Performed By: #### 2 777-1, , ####[facility] LABORATORYCLIA [id number] [place] [address] [place] Sodium [Moles/Vol] 140 mmol/L Normal 136-144 [facility] Comment on above: Order Comment: Speci men Type: BLOOD SPECIMENOrdering Facility: [facility] Address: [address] [place], [place] [address] Performed By: #### 2 777-1, , ####[facility]OSPITALIA [id number] [place] [id number] [place] Urea nitrogen [Mass/Vol] 5 mg/dL Low 7-21 [facility] Comment on above: Order Comment: Speci men Type: BLOOD SPECIMENOrdering Facility: [facility] Address: [address] [place], [place] [address] Performed By: #### 2 777-1, , ####[facility]ITALIA [id number] [place] [address] [place] Magnesium SerPl-ncon 10-27 Magnesium [Mass/Vol] 1.9 mg/dL Normal 1.7-2.3 [facility] Comment on above: Order Comment: Speci men Type: BLOOD SPECIMENOrdering Facility: [facility] Address: [address] [place], [place] [phone] Performed By: #### 2 777-1, , ####[facility] LABORATORYCLIA [id number] [place] [address] [place] NUTRITIONon 10-27-2022 NUTRITION Normal [facility] Phosphate SerPl-mCncon 10-27 Phosphate [Mass/Vol] 3.1 mg/dL Normal 2.7-4.8 [facility] Comment on above: Order Comment: Speci men Type: BLOOD SPECIMENOrdering Facility: [facility] Address: [address] [place] [address] Performed By: #### 2 777-1, 98096-9, 37952-2 ####[facility] LABORATORYIA [id number] [place] [address] [place] Upper GI endoscopyon 023 Upper GI endoscopy Normal [facility] CASE MGT INIT ASSESon 2022 CASE MGT INIT ASS Normal [facility] CBC panel Auto (Bld)on 10-26 Erythrocyte distribution width (RBC) [Ratio] 13.2 % Normal 11.5-15.0 [facility] Comment on above: Order Comment: Speci men Type: BLOOD SPECIMENOrdering Facility: [facility] Address: [address] [place] [address] Performed By: #### 5 8410-2 ####[facility] LABORATORYIA [id number] [place] [address] [place] Hematocrit (Bld) [Volume fraction] 34.9 % Low 36.0-46.0 [facility] Comment on above: Order Comment: Speci men Type: BLOOD SPECIMENOrdering Facility: [facility] Address: [address] [place] [address] Performed By: #### 5 8410-2 ####[facility]ITALIA [id number] [place] [address] [place] Hemoglobin (Bld) [Mass/Vol] 11.1 g/dL Low 11.5-15.5 [facility] Comment on above: Order Comment: Speci men Type: BLOOD SPECIMENOrdering Facility: [facility] Address: [address] [place] [address] Performed By: #### 5 8410-2 ####[facility] LABORATORYIA [id number] [place] [address] [place] MCH (RBC) [Entitic mass] 30.9 pg Normal 26.0-34.0 [facility] Comment on above: Order Comment: Speci men Type: BLOOD SPECIMENOrdering Facility: [facility] Address: [address] [address] Performed By: #### 5 8410-2 ####[facility]ITALIA [id number] [place] [address] [place] MCHC (RBC) [Mass/Vol] 31.8 g/dL Normal 30.5-36.0 [facility] Comment on above: Order Comment: Speci men Type: BLOOD SPECIMENOrdering Facility: [facility] Address: [address] [address] Performed By: #### 5 8410-2 ####[facility]ITALIA [id number] [place] [address] [place] MCV (RBC) [Entitic vol] 97.2 fL Normal 80.0-100.0 [facility] Comment on above: Order Comment: Speci men Type: BLOOD SPECIMENOrdering Facility: [facility] Address: [address] [address] Performed By: #### 5 8410-2 ####[facility] [id number] [place] [address] [place] Nucleated RBC (Bld) [#/Vol] 10*3/uL Normal <0.01 [facility] Comment on above: Order Comment: Speci men Type: BLOOD SPECIMENOrdering Facility: [facility] Address: [address] [address] Performed By: #### 5 8410-2 ####[facility]ITALIA [id number] [place] [address] [place] Platelet mean volume (Bld) [Entitic vol] 11.9 fL Normal 9.0-12.7 [facility] Comment on above: Order Comment: Speci men Type: BLOOD SPECIMENOrdering Facility: [facility] Address: [address] [address] Performed By: #### 5 8410-2 ####[facility]ITALIA [id number] [place] [address] [place] Platelets (Bld) [#/Vol] 181 10*3/uL Normal 150-400 [facility] Comment on above: Order Comment: Speci men Type: BLOOD SPECIMENOrdering Facility: [facility] Address: [address] [address] Performed By: #### 5 8410-2 ####[facility] LABORATORYCLIA [id number] [facility] [place] [address] [place] RBC (Bld) [#/Vol] 3.59 10*6/uL Low 3.90-5.20 [facility] Comment on above: Order Comment: Speci men Type: BLOOD SPECIMENOrdering Facility: [facility] Address: [address] Performed By: #### 5 8410-2 ####[facility]ITALCL[facility] [id number] [facility] [place] [address] [facility] WBC (Bld) [#/Vol] 3.44 10*3/uL Low 3.70-11.00 [facility] Comment on above: Order Comment: Speci men Type: BLOOD SPECIMENOrdering Facility: [facility] Address: [address] [address] Performed By: #### 5 8410-2 ####[facility]ITALIA [id number] [facility] [place] [address] [facility] [place] CONSULTon 10-26-2022 CONSULT Normal [facility] Comprehensive metabolic 2000 panelon 10-26-2022 Albumin [Mass/Vol] 3.3 g/dL Low 3.9-4.9 [facility] Comment on above: Order Comment: Speci men Type: BLOOD SPECIMENOrdering Facility: [facility] Address: [address] [address] Performed By: #### 1 9123-9, 3016-3, 01568-5, 2777-1 ####[facility] LABORATORYCLIA [id number] [facility] [place] [address] [place] ALP [Catalytic activity/Vol] 52 U/L Normal 34-123 [facility] Comment on above: Order Comment: Speci men Type: BLOOD SPECIMENOrdering Facility: [facility] Address: [address] [address] Performed By: #### 1 9123-9, 3016-3, 42371-7, 277-1 ####[facility] LABORATORYCLIA [id number] [place] [address] [place] ALT [Catalytic activity/Vol] 15 U/L Normal 7-38 [facility] Comment on above: Order Comment: Speci men Type: BLOOD SPECIMENOrdering Facility: [facility] Address: [address] [address] Performed By: #### 1 9123-9, 6-3, 21306-6, 277-1 ####[facility] LABORATORYCLIA [id number] [place] [address] [place] Anion gap [Moles/Vol] 9 mmol/L Normal 9-18 [facility] Comment on above: Order Comment: Speci men Type: BLOOD SPECIMENOrdering Facility: [facility] Address: [address] [place] [address] Performed By: #### 1 9123-9, 6-3, 18299-3, 277- ####[facility] HOSPITALCLIA [id number] [place], [place] [id number] [place] [address] [place] AST [Catalytic activity/Vol] 30 U/L Normal 13-35 [facility] Comment on above: Order Comment: Speci men Type: BLOOD SPECIMENOrdering Facility: [facility] Address: [address] [address] Performed By: #### 1 9123-9, 3016-3, 77970-6, 2777-1 ####[facility] LABORATORYCLIA [id number] [place] [address] [place] Bilirubin [Mass/Vol] 0.4 mg/dL Normal 0.2-1.3 [facility] Comment on above: Order Comment: Speci men Type: BLOOD SPECIMENOrdering Facility: [facility] Address: [address] [address] Performed By: #### 1 9123-9, 3016-3, 14707-3, 2777- ####[facility]ITALIA [id number] [place] [address] [place] Calcium [Mass/Vol] 8.3 mg/dL Low 8.5-10.2 [facility] Comment on above: Order Comment: Speci men Type: BLOOD SPECIMENOrdering Facility: [facility] Address: [address] [address] Performed By: #### 1 9123-9, 3016-3, 92764-2, 2777- ####[facility] HOSPITALIA [id number] [place] [address] [place] Chloride [Moles/Vol] 110 mmol/L High 97-105 [facility] Comment on above: Order Comment: Speci men Type: BLOOD SPECIMENOrdering Facility: [facility] Address: [address] [place] [address] Performed By: #### 1 9123-9, 3016-3, 48624-7, 277- ####[facility]PITALIA [id number] [place] [address] [place] CO2 [Moles/Vol] 20 mmol/L Low 22-30 [facility] Comment on above: Order Comment: Speci men Type: BLOOD SPECIMENOrdering Facility: [facility] Address: [address] [place] [address] Performed By: #### 1 9123-9, 3016-3, 65996-9, 2777-1 ####[facility] LABORATORYIA [id number] [place] [address] [place] Creatinine [Mass/Vol] 0.73 mg/dL Normal 0.58-0.96 [facility] Comment on above: Order Comment: Speci men Type: BLOOD SPECIMENOrdering Facility: [facility] Address: [address] [place] [address] Performed By: #### 1 9123-9, 3016-3, 16415-0, 2777-1 ####[facility] LABORATORYIA [id number] [place] [address] [place] Creatinine and Glomerular filtration rate.predicted panel (S/P/Bld) 112 mL/min/1.73m??? Normal >=60 [facility] Comment on above: Order Comment: Geraldo marrero Type: BLOOD SPECIMENOrdering Facility: [facility] Address: [address] [place] [address] Result Comment: Jessica mated Glomerular Filtration Rate [...] actual GFR. Performed By: #### 1 9123-9, 3016-3, 09064-0, 2777- ####[facility] LABORATORYIA [id number] [facility] [place] [address] [place] Glucose [Mass/Vol] 83 mg/dL Normal 74-99 [facility] Comment on above: Order Comment: Geraldo marrero Type: BLOOD SPECIMENOrdering Facility: [facility] Address: [address] [place] [address] Result Comment: The [place] Diabetes Association (ADA) provides guidance for cutoff [...] Standards of Medical Care in Diabetes 2016, [place] Diabetes Association. Diabetes Care. 2016.39(Suppl 1). Performed By: #### 1 23-9, 6-3, 39831-5, 2776- ####[facility] LABORATORYCLIA [id number] [place] [address] [place] Potassium [Moles/Vol] 4.2 mmol/L Normal 3.7-5.1 [facility] Comment on above: Order Comment: Speci men Type: BLOOD SPECIMENOrdering Facility: [facility] Address: [address] [address] Performed By: #### 1 9123-9, 3015-3, 05673-7, 2776- ####[facility]ITALCL[facility] [id number] [place] [address] [place] Protein [Mass/Vol] 5.0 g/dL Low 6.3-8.0 [facility] Comment on above: Order Comment: Speci men Type: BLOOD SPECIMENOrdering Facility: [facility] Address: [address] [address] Performed By: #### 1 23-9, 3015-3, 80127-8, 2776- ####[facility]PITALIA [id number] [place] [address] [place] Sodium [Moles/Vol] 139 mmol/L Normal 136-144 [facility]ital Comment on above: Order Comment: Speci men Type: BLOOD SPECIMENOrdering Facility: [facility] Address: [address] [address] Performed By: #### 1 9123-9, 3015-3, 36680-0, 2776- ####[facility]ITALIA [id number] [place] [address] [place] Urea nitrogen [Mass/Vol] 5 mg/dL Low 7-21 [facility] Comment on above: Order Comment: Speci men Type: BLOOD SPECIMENOrdering Facility: [facility] Address: [address] [address] Performed By: #### 1 9123-9, 3015-3, 54564-7, 2776-1 ####[facility]PITALIA [id number] [place] [address] [place] ED Note-Physicianon 10-27-19 ED Note-Physician Prabhakar [facility] Comment on above: Result Comment: Elec tronically Signed By: Lonnie Rios PA-C\.br\Date and Time Signed: 10/20/22 13:50 EDT\.br\Electronically Co-Signed By: Earnest Jett DO\.br\Date and Time Co-Signed: 10/26/22 07:01 EDT Magnesium SerPl-mCncon 10-26 Magnesium [Mass/Vol] 1.9 mg/dL Normal 1.7-2.3 [facility] Comment on above: Order Comment: Speci eldia Type: BLOOD SPECIMENOrdering Facility: [facility] Address: [address] [place], [place] [address] Performed By: #### 1 9123-9, 3016-3, 40326-5, 2777-1 ####[facility] [id number] [place] [address] [place] Phosphate SerPl-mCncon 10-26 Phosphate [Mass/Vol] 4.3 mg/dL Normal 2.7-4.8 [facility] Comment on above: Order Comment: Specmichael marrero Type: BLOOD SPECIMENOrdering Facility: [facility] Address: [address] [place], [place] [address] Performed By: #### 1 9123-9, 3016-3, 05188-8, 2777-1 ####[facility] H[facility]PITALIA [id number] [place] [address] [place] TSH SerPl-aCncon 10-26-2022 TSH Qn 0.712 m[IU]/L Normal 0.270-4.200 [facility] Comment on above: Order Comment: Specmichael marrero Type: BLOOD SPECIMENOrdering Facility: [facility] Address: [address] [place], [place] [address] Result Comment: If t he patient is , TSH reference range varies by gestational period:First Trimester (weeks 9-12): 0.180-2.990 mIU/LSecond Trimester: 0.110-3.980 mIU/LThird Trimester: 0.480-4.710 mIU/Lisa Johnson et al. A Practical Approach for the Verifications and Determination of Site- and Trimester-Specific Reference Intervals for Thyroid Function tests in . Thyroid, 2019:29:3:412-420. Claus E, et al. 2017 Guidelines of the [place] Thyroid Association for the Diagnosis and Management of Thyroid Disease during and the . Thyroid, 2017:27:3:315-389. Performed By: #### 1 9123-9, 3016-3, 82326-0, 2777-1 ####[facility] LABORATORYIA [id number] [place] [address] [place] CBC W Auto Differential pane l (Bld)on 10-25-2022 Basophils (Bld) [#/Vol] 0.04 10*3/uL Normal <0.11 [facility] Comment on above: Order Comment: Speci men Type: BLOOD SPECIMENOrdering Facility: [facility] Address: [address] [address] Performed By: #### 5 7021-8 ####[facility]PITALIA [id number] [place] [address] [place] Basophils/100 WBC (Bld) 1.1 % Normal [facility] Comment on above: Order Comment: Speci men Type: BLOOD SPECIMENOrdering Facility: [facility] Address: [address] [address] Performed By: #### 5 7021-8 ####[facility]PITALIA [id number] [address] [place] Differential cell count method Nom (Bld) Auto Normal [facility] Comment on above: Order Comment: Speci men Type: BLOOD SPECIMENOrdering Facility: [facility] Address: [address] [address] Performed By: #### 5 7021-8 ####[facility] LABORATORYIA [id number] [facility] [place] [place] [address] [place] Eosinophils (Bld) [#/Vol] 0.07 10*3/uL Normal <0.46 [facility] Comment on above: Order Comment: Speci men Type: BLOOD SPECIMENOrdering Facility: [facility] Address: [address] [address] Performed By: #### 5 7021-8 ####[facility] LABORATORYCLIA [id number] [place] [address] [place] Eosinophils/100 WBC (Bld) 1.9 % Normal [facility] Comment on above: Order Comment: Speci men Type: BLOOD SPECIMENOrdering Facility: [facility] Address: [address] [place] [address] Performed By: #### 5 7021-8 ####[facility] LABORATORYCLIA [id number] [address] [place] Erythrocyte distribution width (RBC) [Ratio] 13.0 % Normal 11.5-15.0 [facility] Comment on above: Order Comment: Speci men Type: BLOOD SPECIMENOrdering Facility: [facility] Address: [address] [place] [address] Performed By: #### 5 7021-8 ####[facility] LABORATORYCLIA [id number] [place] [address] [place] Hematocrit (Bld) [Volume fraction] 39.5 % Normal 36.0-46.0 [facility] Comment on above: Order Comment: Speci men Type: BLOOD SPECIMENOrdering Facility: [facility] Address: [address] [place] [address] Performed By: #### 5 7021-8 ####[facility] LABORATORYCLIA [id number] [place] [address] [place] Hemoglobin (Bld) [Mass/Vol] 13.1 g/dL Normal 11.5-15.5 [facility] Comment on above: Order Comment: Speci men Type: BLOOD SPECIMENOrdering Facility: [facility] Address: [address] Performed By: #### 5 7021-8 ####[facility] LABORATORYCLIA [id number] [place] [address] [place] Immature granulocytes (Bld) [#/Vol] 10*3/uL Normal <0.10 [facility] Comment on above: Order Comment: Speci men Type: BLOOD SPECIMENOrdering Facility: [facility] Address: [address] [address] Performed By: #### 5 7021-8 ####[facility] LABORATORYCLIA [id number] [place] [address] [place] Immature granulocytes/100 WBC (Bld) 0.3 % Normal [facility] Comment on above: Order Comment: Speci men Type: BLOOD SPECIMENOrdering Facility: [facility] Address: [address] [address] Performed By: #### 5 7021-8 ####[facility] H[facility]PITALIA [id number] [place] [address] [place] Lymphocytes (Bld) [#/Vol] 1.11 10*3/uL Normal 1.00-4.00 [facility] Comment on above: Order Comment: Speci men Type: BLOOD SPECIMENOrdering Facility: [facility] Address: [address] [address] Performed By: #### 5 7021-8 ####[facility] LABORATORYIA [id number] [place] [address] [place] Lymphocytes/100 WBC (Bld) 29.4 % Normal [facility] Comment on above: Order Comment: Speci men Type: BLOOD SPECIMENOrdering Facility: [facility] Address: [address] [address] Performed By: #### 5 7021-8 ####[facility] LABORATORYIA [id number] [place] [address] [place] MCH (RBC) [Entitic mass] 30.5 pg Normal 26.0-34.0 [facility] Comment on above: Order Comment: Speci men Type: BLOOD SPECIMENOrdering Facility: [facility] Address: [address] [address] Performed By: #### 5 7021-8 ####[facility]PITALIA [id number] [place] [address] [place] MCHC (RBC) [Mass/Vol] 33.2 g/dL Normal 30.5-36.0 [facility] Comment on above: Order Comment: Speci men Type: BLOOD SPECIMENOrdering Facility: [facility] Address: [address] [address] Performed By: #### 5 7021-8 ####[facility]ITALIA [id number] [place] [address] [place] MCV (RBC) [Entitic vol] 92.1 fL Normal 80.0-100.0 [facility] Comment on above: Order Comment: Speci men Type: BLOOD SPECIMENOrdering Facility: [facility] Address: [address] [address] Performed By: #### 5 7021-8 ####[facility] [id number] [place] [address] [place] Monocytes (Bld) [#/Vol] 0.27 10*3/uL Normal <0.87 [facility] Comment on above: Order Comment: Speci men Type: BLOOD SPECIMENOrdering Facility: [facility] Address: [address] Performed By: #### 5 7021-8 ####[facility] LABORATORYIA [id number] [address] [place] Monocytes/100 WBC (Bld) 7.1 % Normal [facility] Comment on above: Order Comment: Speci men Type: BLOOD SPECIMENOrdering Facility: [facility] Address: [address] Performed By: #### 5 7021-8 ####[facility] LABORATORYIA [id number] [place] [address] [place] Neutrophils (Bld) [#/Vol] 2.28 10*3/uL Normal 1.45-7.50 [facility] Comment on above: Order Comment: Speci men Type: BLOOD SPECIMENOrdering Facility: [facility] Address: [address] [address] Performed By: #### 5 7021-8 ####[facility] LABORATORYCLIA [id number] [address] [id number] [place] Neutrophils/100 WBC (Bld) 60.2 % Normal [facility] Comment on above: Order Comment: Speci men Type: BLOOD SPECIMENOrdering Facility: [facility] Address: [address] [address] Performed By: #### 5 7021-8 ####[facility] LABORATORYIA [id number] [place] [address] [place] Nucleated RBC (Bld) [#/Vol] 10*3/uL Normal <0.01 [facility] Comment on above: Order Comment: Speci men Type: BLOOD SPECIMENOrdering Facility: [facility] Address: [address] [place] [address] Performed By: #### 5 7021-8 ####[facility] LABORATORYIA [id number] [place] [address] [place] Nucleated RBC/100 WBC (Bld) [Ratio] 0.0 /100 WBC Normal [facility] Comment on above: Order Comment: Speci men Type: BLOOD SPECIMENOrdering Facility: [facility] Address: [address] [address] Performed By: #### 5 7021-8 ####[facility] LABORATORYIA [id number] [place] [address] [place] Platelet mean volume (Bld) [Entitic vol] 11.4 fL Normal 9.0-12.7 [facility] Comment on above: Order Comment: Speci men Type: BLOOD SPECIMENOrdering Facility: [facility] Address: [address] [place], [place] [address] Performed By: #### 5 7021-8 ####[facility] LABORATORYIA [id number] [place] [address] [place] [facility] [place] Platelets (Bld) [#/Vol] 208 10*3/uL Normal 150-400 [facility] Comment on above: Order Comment: Speci men Type: BLOOD SPECIMENOrdering Facility: [facility] Address: [address] [place] [address] Performed By: #### 5 7021-8 ####[facility] HOSPITALIA [id number] [place] [address] [place] RBC (Bld) [#/Vol] 4.29 10*6/uL Normal 3.90-5.20 [facility] Comment on above: Order Comment: Speci men Type: BLOOD SPECIMENOrdering Facility: [facility] Address: [address] [place] [address] Performed By: #### 5 7021-8 ####[facility]PITALIA [id number] [place] [address] [place] WBC (Bld) [#/Vol] 3.78 10*3/uL Normal 3.70-11.00 [facility] Comment on above: Order Comment: Speci men Type: BLOOD SPECIMENOrdering Facility: [facility] Address: [address] [place] [address] Performed By: #### 5 7021-8 ####[facility]ITALIA [id number] [place] [id number] [place] CT ABD/PEL W IVCONon 023 CT ABD/PEL W IVCON Normal [facility] Comprehensive metabolic 2000 panelon 10-25-2022 Albumin [Mass/Vol] 4.2 g/dL Normal 3.9-4.9 [facility] Comment on above: Order Comment: Speci men Type: BLOOD SPECIMENOrdering Facility: [facility] Address: [address] [place] [address] Performed By: #### 1 23-9, 74210-8, 0-3 ####[facility] LABORATORYCLIA [id number] [facility] [place] [address] [place] ALP [Catalytic activity/Vol] 70 U/L Normal 34-123 [facility] Comment on above: Order Comment: Speci men Type: BLOOD SPECIMENOrdering Facility: [facility] Address: [address] [place] [address] Performed By: #### 1 23-9, 44040-5, 0-3 ####[facility] LABORATORYCLIA [id number] [place] [address] [place] ALT [Catalytic activity/Vol] 21 U/L Normal 7-38 [facility] Comment on above: Order Comment: Speci men Type: BLOOD SPECIMENOrdering Facility: [facility] Address: [address] [place] [address] Performed By: #### 1 9123-9, 44863-1, 0-3 ####[facility] HOSPITALIA [id number] [place] [address] [place] Anion gap [Moles/Vol] 10 mmol/L Normal 9-18 [facility] Comment on above: Order Comment: Speci men Type: BLOOD SPECIMENOrdering Facility: [facility] Address: [address] [place] [address] Performed By: #### 1 9123-9, 50201-6, 0-3 ####[facility] LABORATORYCLIA [id number] [facility] [address] [place] AST [Catalytic activity/Vol] 38 U/L High 13-35 [facility] Comment on above: Order Comment: Speci men Type: BLOOD SPECIMENOrdering Facility: [facility] Address: [address] [place] [address] Performed By: #### 1 9123-9, 53667-7, 0-3 ####[facility] LABORATORYCLIA [id number] [place] [address] [place] Bilirubin [Mass/Vol] 0.3 mg/dL Normal 0.2-1.3 [facility] Comment on above: Order Comment: Speci men Type: BLOOD SPECIMENOrdering Facility: [facility] Address: [address] [place] [address] Performed By: #### 1 9123-9, 95467-4, 0-3 ####[facility] LABORATORYCLIA [id number] [place] [address] [place] Calcium [Mass/Vol] 8.8 mg/dL Normal 8.5-10.2 [facility]ital Comment on above: Order Comment: Speci men Type: BLOOD SPECIMENOrdering Facility: [facility] Address: [address] [place] [address] Performed By: #### 1 9123-9, 32281-1, 0-3 ####[facility] LABORATORYCLIA [id number] [place] [address] [place] Chloride [Moles/Vol] 106 mmol/L High 97-105 [facility] Comment on above: Order Comment: Speci men Type: BLOOD SPECIMENOrdering Facility: [facility] Address: [address] [place] [address] Performed By: #### 1 9123-9, 87322-9, 0-3 ####[facility] LABORATORYCLIA [id number] [place] [address] [place] CO2 [Moles/Vol] 22 mmol/L Normal 22-30 [facility] ital Comment on above: Order Comment: Speci men Type: BLOOD SPECIMENOrdering Facility: [facility] Address: [address] [place] [address] Performed By: #### 1 9123-9, 26272-9, 0-3 ####[facility] LABORATORYCLIA [id number] [place] [address] [place] Creatinine [Mass/Vol] 0.82 mg/dL Normal 0.58-0.96 [facility] Comment on above: Order Comment: Speci men Type: BLOOD SPECIMENOrdering Facility: [facility] Address: [address] [place] [address] Performed By: #### 1 9123-9, 46217-7, 3040-3 ####[facility] LABORATORYIA [id number] [place] [id number] [place] Creatinine and Glomerular filtration rate.predicted panel (S/P/Bld) 97 mL/min/1.73m??? Normal >=60 [facility] Comment on above: Order Comment: Geraldo marrero Type: BLOOD SPECIMENOrdering Facility: [facility] Address: [address] [place] [id number] Result Comment: Jessica mated Glomerular Filtration Rate [...] actual GFR. Performed By: #### 1 9123-9, 11281-4, 3040-3 ####[facility] LABORATORYIA [id number] [place] [id number] [place] Glucose [Mass/Vol] 85 mg/dL Normal 74-99 [facility] Comment on above: Order Comment: Geraldo marrero Type: BLOOD SPECIMENOrdering Facility: [facility] Address: [address] [place], [place] [address] Result Comment: The [place] Diabetes Association (ADA) provides guidance for cutoff [...] Standards of Medical Care in Diabetes 2016, [place] Diabetes Association. Diabetes Care. 2016.39(Suppl 1). Performed By: #### 1 9123-9, 70454-1, 0-3 ####[facility] [id number] [place] [address] [place] Potassium [Moles/Vol] 3.8 mmol/L Normal 3.7-5.1 [facility] Comment on above: Order Comment: Speci men Type: BLOOD SPECIMENOrdering Facility: [facility] Address: [address] [address] Performed By: #### 1 9123-9, 85972-1, 0-3 ####[facility] H[facility]PITALIA [id number] [place] [address] [place] Protein [Mass/Vol] 6.5 g/dL Normal 6.3-8.0 [facility] Comment on above: Order Comment: Speci men Type: BLOOD SPECIMENOrdering Facility: [facility] Address: [address] [address] Performed By: #### 1 9123-9, 72031-7, 0-3 ####[facility]ITALIA [id number] [place] [address] [place] Sodium [Moles/Vol] 138 mmol/L Normal 136-144 [facility] Comment on above: Order Comment: Speci men Type: BLOOD SPECIMENOrdering Facility: [facility] Address: [address] [address] Performed By: #### 1 9123-9, 02608-5, 0-3 ####[facility]ITALIA [id number] [place] [address] [place] Urea nitrogen [Mass/Vol] 7 mg/dL Normal 7-21 [facility] Comment on above: Order Comment: Speci men Type: BLOOD SPECIMENOrdering Facility: [facility] Address: [address] [address] Performed By: #### 1 9123-9, 23023-7, 0-3 ####[facility] LABORATORYIA [id number] [place] [address] [place] D dimer FEU PPP-mCncon 10-25 Fibrin D-dimer FEU (PPP) [Mass/Vol] <190 Normal <500 [facility] Comment on above: Order Comment: Speci men Type: BLOOD SPECIMENOrdering Facility: [facility] Address: [address] [place] [address] Performed By: #### 4 8065-7 ####[facility] LABORATORYCLIA [id number] [place] [address] [place] ECG COMPLETEon 10-25-2022 ECG COMPLETE Normal [facility] ED NOTEon 10-25-2022 ED NOTE HNO ID: [id number] Author: Anam Myers RN Service: ? Author Type: Registered Nurse Type: ED Notes Filed: 10/25/2022 8:19 AM Note Text: Pt unable to urinate sat this time. Aware urine sample is needed. Normal [facility] ED NOTE Normal [facility] ED PROV NOTEon 10-25-2022 ED PROV NOTE Normal [facility] HISTORY PHYSICALon HISTORY PHYSICAL Normal [facility] pital Lipase SerPl-cCncon 10-26-19 Lipase [Catalytic activity/Vol] 29 U/L Normal 16-61 [facility] [facility] Comment on above: Order Comment: Speci men Type: BLOOD SPECIMENOrdering Facility: [facility] Address: [address] [place], [place] [id number] Performed By: #### 1 9123-9, 90055-2, 3040-3 ####[facility] LABORATORYCLIA [id number] [place] [address] [place] Magnesium SerPl-mCncon 10-25 Magnesium [Mass/Vol] 1.9 mg/dL Normal 1.7-2.3 [facility] Comment on above: Order Comment: Speci men Type: BLOOD SPECIMENOrdering Facility: [facility] Address: [address] [place], [place] [address] Performed By: #### 1 9123-9, 79389-4, 3040-3 ####[facility] [id number] [place] [address] [place] NURSING PROGon 10-25-2022 NURSING PROG Normal [facility] l Urinalysis complete panel (U )on 10-25-2022 Bilirubin Ql (U) Negative Normal Negative [facility] Comment on above: Order Comment: Speci men Type: URINE SPECIMENOrdering Facility: [facility] Address: [address] [place] [address] Performed By: #### 2 4356-8 ####[facility] [id number] [place] [address] [place] Clarity (Unsp spec) Clear Normal Clear [facility] Comment on above: Order Comment: Speci men Type: URINE SPECIMENOrdering Facility: [facility] Address: [address] [place] [address] Performed By: #### 2 4356-8 ####[facility] [id number] [place] [address] [place] Color (U) Colorless Normal yellow [facility] Comment on above: Order Comment: Speci men Type: URINE SPECIMENOrdering Facility: [facility] Address: [address] [place] [address] Performed By: #### 2 4356-8 ####[facility] [id number] [place] [address] [place] Epithelial cells LM.HPF (Urine sed) [#/Area] Few Normal [facility] Comment on above: Order Comment: Speci men Type: URINE SPECIMENOrdering Facility: [facility] Address: [address] [place] [address] Performed By: #### 2 4356-8 ####[facility] [id number] [place] [id number] [place] Glucose Test strip (U) [Mass/Vol] Negative Normal Trace, Negative [facility] Comment on above: Order Comment: Speci men Type: URINE SPECIMENOrdering Facility: [facility] Address: [address] [address] Performed By: #### 2 4356-8 ####[facility] [id number] [place] [address] [place] Hemoglobin Ql (U) Negative Normal Negative, Trace [facility] Comment on above: Order Comment: Speci men Type: URINE SPECIMENOrdering Facility: [facility] Address: [address] [address] Performed By: #### 2 4356-8 ####[facility] [id number] [place] [address] [place] Ketones Ql (U) Negative Normal Negative, Trace [facility] Comment on above: Order Comment: Speci men Type: URINE SPECIMENOrdering Facility: [facility] Address: [address] [place] [address] Performed By: #### 2 4356-8 ####[facility] [id number] [place] [address] [place] Leukocyte esterase Test strip Ql (U) Negative Normal Negative, 25 Patito/uL [facility] Comment on above: Order Comment: Speci men Type: URINE SPECIMENOrdering Facility: [facility] Address: [address] [place] [address] Performed By: #### 2 4356-8 ####[facility] [id number] [place] [address] [place] Nitrite Ql (U) Negative Normal Negative [facility] Comment on above: Order Comment: Speci men Type: URINE SPECIMENOrdering Facility: [facility] Address: [address] [address] Performed By: #### 2 4356-8 ####[facility] [id number] [place] [address] [place] pH (U) 6.5 [pH] Normal 5.0-8.0 [facility] Comment on above: Order Comment: Speci men Type: URINE SPECIMENOrdering Facility: [facility] Address: [address] [place] [address] Performed By: #### 2 4356-8 ####[facility] [id number] [place] [address] [place] Protein (U) [Mass/Vol] Negative Normal Trace, Negative [facility] Comment on above: Order Comment: Speci men Type: URINE SPECIMENOrdering Facility: [facility] Address: [address] [place] [address] Performed By: #### 2 4356-8 ####[facility] [id number] [place] [address] [place] RBC LM.HPF (Urine sed) [#/Area] 0-3 /HPF Normal 0-3 /HPF [facility] Comment on above: Order Comment: Speci men Type: URINE SPECIMENOrdering Facility: [facility] Address: [address] [place] [address] Performed By: #### 2 4356-8 ####[facility] [id number] [place] [address] [place] Specific gravity (U) [Rel density] 1.041 High 1.005-1.030 [facility] Comment on above: Order Comment: Speci men Type: URINE SPECIMENOrdering Facility: [facility] Address: [address] [place] [address] Performed By: #### 2 4356-8 ####[facility] [id number] [place] [address] [place] Urobilinogen Ql (U) Normal Normal Negative [facility] Comment on above: Order Comment: Speci men Type: URINE SPECIMENOrdering Facility: [facility] Address: [address] [place] [address] Performed By: #### 2 4356-8 ####[facility] [id number] [place] [id number] [place] WBC LM.HPF (Urine sed) [#/Area] 0-5 /HPF Normal 0-5 /HPF [facility] Comment on above: Order Comment: Speci men Type: URINE SPECIMENOrdering Facility: [facility] Address: [place] [address] Performed By: #### 2 4356-8 ####[facility] LABORATORYCLIA [id number] [facility] [place] [address] [place] [address] [facility] XR ABDOMEN (2 VIEWS)on 10-24 XR ABDOMEN [...] Kuldip Laughlin MD 10/23/22 Final result Normal [facility] CBC with Diffon 10-23-2022 Abs. Basophil 0.03 k/uL Normal 0.00-0.20 [facility] Comment on above: Performed By: #### L JUDITH BROWN, CDP #### [facility] [address] [place] [address] Dental Assistant Instructor: Baldomero Espinoza MD Abs.Imm.Granulocyte <0.03 Normal 0.00-0.30 [facility] Comment on above: Performed By: #### L JUDITH BROWN, CDP #### [facility] [address] [place] [address] Dental Assistant Instructor: Baldomero Espinoza MD Abs.Neutrophil (Seg) 3.51 k/uL Normal 1.50-8.10 [facility] Comment on above: Performed By: #### L JUDITH BROWN, CDP #### [facility] [address] [place] [address] Dental Assistant Instructor: Baldomero Espinoza MD Basophils/100 WBC (Bld) 1 % Normal 0-2 [facility] Comment on above: Performed By: #### L IP, CP, CDP #### [address] [place], [place] [address] Dental Assistant Instructor: Baldomero Espinoza MD Eosinophils (Bld) [#/Vol] 0.07 10*3/uL Normal 0.00-0.44 [facility] Comment on above: Performed By: #### L IP, CP, CDP #### [address] [place], [place] [address] Dental Assistant Instructor: Baldomero Espinoza MD Eosinophils/100 WBC (Bld) 1 % Normal 1-4 [facility] Comment on above: Performed By: #### L IP, CP, CDP #### [address] [place], [place] [address]683 Dental Assistant Instructor: Baldomero Espinoza MD Erythrocyte distribution width (RBC) [Ratio] 12.7 % Normal 11.8-14.4 [facility] Comment on above: Performed By: #### L IP CP, CDP #### [address] [place], [place] [address] Dental Assistant Instructor: Baldomero Espinoza MD Hematocrit (Bld) [Volume fraction] 36.0 % Low 36.3-47.1 [facility] Comment on above: Performed By: #### L IP, CP, CDP #### [address] [place], [place] [address] Dental Assistant Instructor: Baldomero Espinoza MD Hemoglobin (Bld) [Mass/Vol] 12.2 g/dL Normal 11.9-15.1 [facility] Comment on above: Performed By: #### L IP, CP, CDP #### [address] [place], [place] [address] Dental Assistant Instructor: Baldomero Espinoza MD Immature granulocytes/100 WBC (Bld) 0 % Normal 0 [facility] Comment on above: Performed By: #### L IP, CP, CDP #### [facility] [address] [place], [place] [address]483 Dental Assistant Instructor: Baldomero Espinoza MD Lymphocytes (Bld) [#/Vol] 2.05 10*3/uL Normal 1.10-3.70 [facility] Comment on above: Performed By: #### L IP, CP, CDP #### [facility] [address] [place], [place] [address] Dental Assistant Instructor: Baldomero Espinoza MD Lymphocytes/100 WBC (Bld) 34 % Normal 24-43 [facility] Comment on above: Performed By: #### L IP, CP, CDP #### [facility] [address] [place], [facility]83 Dental Assistant Instructor: Baldomero Espinoza MD MCH (RBC) [Entitic mass] 30.8 pg Normal 25.2-33.5 [facility] Comment on above: Performed By: #### L KEVIN CP, CDP #### [address] [place], [facility]83 Dental Assistant Instructor: Baldomero Espinoza MD MCHC (RBC) [Mass/Vol] 33.9 g/dL Normal 28.4-34.8 [facility] Comment on above: Performed By: #### L KEVIN CP, CDP #### [address] [place], [facility]83 Dental Assistant Instructor: Baldomero Espinoza MD MCV (RBC) [Entitic vol] 90.9 fL Normal 82.6-102.9 [facility] Comment on above: Performed By: #### L IP, CP, CDP #### [facility] [address] [place] [address] Dental Assistant Instructor: Baldomero Espinoza MD Monocytes (Bld) [#/Vol] 0.44 10*3/uL Normal 0.10-1.20 [facility] Comment on above: Performed By: #### L IP, CP, CDP #### [facility] [address] [place], [place] [address] Dental Assistant Instructor: Baldomero Espinoza MD Monocytes/100 WBC (Bld) 7 % Normal 3-12 [facility] Comment on above: Performed By: #### L IP, CP, CDP #### [address] [place], [facility]83 Dental Assistant Instructor: Baldomero Espinoza MD Neutrophil (Seg) 57 % Normal 36-65 [facility] Comment on above: Performed By: #### L IP, CP, CDP #### [address] [place], [place] [address] Dental Assistant Instructor: Baldomero Espinoza MD NRBC Automated 0.0 per 100 WBC Normal 0.0 [facility] Comment on above: Performed By: #### L IP, CP, CDP #### [address] [place], [facility]83 Dental Assistant Instructor: Baldomero Espinoza MD Platelet mean volume (Bld) [Entitic vol] 11.1 fL Normal 8.1-13.5 [facility] Comment on above: Performed By: #### L IP, CP, CDP #### [address] [place], [place] [address]83 Dental Assistant Instructor: Baldomeor Espinoza MD Platelets (Bld) [#/Vol] 226 10*3/uL Normal 138-453 [facility] Comment on above: Performed By: #### L IP, CP, CDP #### [address] [place], [place] [address] Dental Assistant Instructor: Baldomero Espinoza MD RBC (Bld) [#/Vol] 3.96 10*6/uL Normal 3.95-5.11 [facility] Comment on above: Performed By: #### L IP, CP, CDP #### [facility] [address] [place] [address] [place] [place], [place] [address] Dental Assistant Instructor: Baldomero Espinoza MD WBC (Bld) [#/Vol] 6.1 10*3/uL Normal 3.5-11.3 [facility] Comment on above: Performed By: #### L IP, CP, CDP #### [facility] [address] [place], [place] [address] Dental Assistant Instructor: Baldomero Espinoza MD CNPNon 10-23-2022 CNPN Normal [facility] Comp Metabolic Profon 2022 Albumin [Mass/Vol] 4.1 g/dL Normal 3.5-5.2 [facility] Comment on above: Performed By: #### L IP, CP, CDP #### [facility] [address] [place], [place] [address]383 Dental Assistant Instructor: Baldomero Espinoza MD Albumin/Glob Ratio 1.7 Normal 1.0-2.5 [facility] Comment on above: Performed By: #### L IP, CP, CDP #### [facility] [address] [place], [place] [address] Dental Assistant Instructor: Baldomero Espinoza MD Alkaline Phos 64 U/L Normal 35-104 [facility] Comment on above: Performed By: #### L IP, CP, CDP #### [facility] [address] [place], [place] [address]83 Dental Assistant Instructor: Baldomero Espinoza MD ALT [Catalytic activity/Vol] 19 U/L Normal 5-33 [facility] Comment on above: Performed By: #### L IP, CP, CDP #### [facility] [address] [place], [place] [address] Dental Assistant Instructor: Baldomero Espinoza MD Anion gap [Moles/Vol] 11 mmol/L Normal 9-17 [facility] Comment on above: Performed By: #### L IP, CP, CDP #### [facility] [address] [place], [place] [address] Dental Assistant Instructor: Baldomero Espinoza MD AST [Catalytic activity/Vol] 33 U/L High <32 [facility] Comment on above: Performed By: #### L IP, CP, CDP #### [facility] [address] [place], [place] [address]83 Dental Assistant Instructor: Baldomero Espinoza MD Bilirubin [Mass/Vol] 0.5 mg/dL Normal 0.3-1.2 [facility] Comment on above: Performed By: #### L IP, CP, CDP #### [facility] [address] [place], [place] [address] Dental Assistant Instructor: Baldomero Espinoza MD BUN/CRE Ratio 14 Normal 9-20 [facility] Comment on above: Performed By: #### L IP, CP, CDP #### [facility] [address] [place] [address] [place], [place] 7608283 Dental Assistant Instructor: Baldomero Espinoza MD Calcium [Mass/Vol] 9.0 mg/dL Normal 8.6-10.4 [facility] Comment on above: Performed By: #### L IP, CP, CDP #### [address] [place], [place] [address]684283 Dental Assistant Instructor: Baldomero Espinoza MD Chloride [Moles/Vol] 103 mmol/L Normal 98-107 [facility] Comment on above: Performed By: #### L IP, CP, CDP #### [facility] [address] [place], [place] [address]83 Dental Assistant Instructor: Baldomero Espinoza MD CO2 [Moles/Vol] 22 mmol/L Normal 20-[address] [facility] Comment on above: Performed By: #### L IP, CP, CDP #### [facility] [address] [place], [place] [address] Dental Assistant Instructor: Baldomero Espinoza MD Creatinine [Mass/Vol] 0.7 mg/dL Normal 0.5-0.9 [facility] Comment on above: Performed By: #### L IP CP, CDP #### [address] [place] [address] Dental Assistant Instructor: Baldomero Espinoza MD GFR/1.73 sq M.predicted among non-blacks MDRD (S/P/Bld) [Vol rate/Area] mL/min/{1.73_m2} Normal >60 [facility] Comment on above: Result Comment: These [...] renal tubular secretion. Performed By: #### L IP CP, CDP #### [address] [place] [address] Dental Assistant Instructor: Baldomero Espinoza MD Glucose [Mass/Vol] 86 mg/dL Normal 70-99 [facility] Comment on above: Performed By: #### L KEVIN CP, CDP #### [address] [place] [address] Dental Assistant Instructor: Baldomero Espinoza MD Potassium [Moles/Vol] 3.4 mmol/L Low 3.7-5.3 [facility] Comment on above: Performed By: #### L IP CP, CDP #### [address] [place] [address] Dental Assistant Instructor: aBldomero Espinoza MD Protein [Mass/Vol] 6.5 g/dL Normal 6.4-8.3 [facility] Comment on above: Performed By: #### L IP, CP, CDP #### [address] [place] [address] Dental Assistant Instructor: Baldomero Espinoza MD Sodium [Moles/Vol] 136 mmol/L Normal 135-144 [facility] Comment on above: Performed By: #### L JUDITH BROWN, CDP #### [facility] [address] [place] [address] Dental Assistant Instructor: Baldomero Espinoza MD Urea nitrogen [Mass/Vol] 10 mg/dL Normal 6-20 [facility] Comment on above: Performed By: #### L JUDITH BROWN, CDP #### [facility] [address] [place] [address] Dental Assistant Instructor: Baldomero Espinoza MD HCG, ,Urineon 10-23 Beta HCG ( test) Ql (U) Negative Normal NEG [facility] Comment on above: Result Comment: Spec imens with hCG levels near the threshold of the test (25 mIU/mL) may give a negative or indeterminate result. In such cases, another test should be performed with a new specimen in 48-72 hours. If early is suspected clinically in this setting, correlation with quantitative serum b-hCG level is suggested. [facility] has confirmed the use of plasma for this test. This has not been cleared or approved by the U.S. Food and Drug Administration. The FDA has determined that such clearance is not necessary. Performed By: #### U HCG, UAMIC #### [facility] [address] [place] [address] Dental Assistant Instructor: Baldomero Espinoza MD Lactic Acidon 7 Lactate [Moles/Vol] 0.8 mmol/L Normal 0.5-2.2 [facility] Comment on above: Performed By: #### L ACTIC #### [facility] [address] [place] [address] Dental Assistant Instructor: Baldomero Espinoza MD Lipaseon 9 Lipase [Catalytic activity/Vol] 32 U/L Normal 13-60 [facility] Comment on above: Performed By: #### L JUDITH BROWN, CDP #### [facility] [address] [place] [address] Dental Assistant Instructor: Baldomero Espinoza MD Urinalysis w/ Microon 2022 Bacteria 1+ Abnormal NONE [facility] Comment on above: Performed By: #### U HCG, UAMIC ####[facility] , [place] [address] Lab Director: Baldomero Espinoza MD Bilirubin, SemiQt,Ur Negative Normal NEG [facility] Comment on above: Performed By: #### U HCG, UAMIC ####[address] [place] [address] Lab Director: Baldomero Espinoza MD Blood, Urine Negative Normal NEG [facility] Comment on above: Performed By: #### U HCG, UAMIC ####[address] [place] [address] Lab Director: Baldomero Espinoza MD Clarity (U) Clear Normal CLEAR [facility] Comment on above: Performed By: #### U HCG, UAMIC ####[address] , [place] [address] Lab Director: Baldomero Espinoza MD Color (U) Yellow Normal YEL [facility] Comment on above: Performed By: #### U HCG, UAMIC ####[address] [place] [address] Lab Director: Baldomero Espinoza MD Epithelial cells LM Ql (Urine sed) 2 TO 5 Normal 0-25 [facility] Comment on above: Performed By: #### U HCG, UAMIC ####[address] , [place] 4[address] Lab Director: Baldomero Espinoza MD Glucose Ql (U) Negative Normal NEG [facility] Comment on above: Performed By: #### U HCG, UAMIC ####[address] , [place] 8[address]83 Lab Director: Baldomero Espinoza MD Ketones Ql (U) Negative Normal NEG [facility] Comment on above: Performed By: #### U HCG, UAMIC ####[address] , [place] [address] Lab Director: Baldomero Espinoza MD Leukocyte esterase Test strip Ql (U) Negative Normal NEG [facility] Comment on above: Performed By: #### U HCG, UAMIC ####[address] [place] [address] Lab Director: Baldomero Espinoza MD Mucus Strands TRACE Abnormal NONE [facility] Comment on above: Performed By: #### U HCG, UAMIC ####[address] [place] [address] Lab Director: Baldomero Espinoza MD Nitrite,Ur Negative Normal NEG [facility] Comment on above: Performed By: #### U HCG, UAMIC ####[address] [place] [address] Lab Director: Baldomero Espinoza MD PH,Ur 6.5 Normal 5.0-9.0 [facility] Comment on above: Performed By: #### U HCG, UAMIC ####[address] [place] [address] Lab Director: Baldomero Espinoza MD Protein Ql (U) Negative Normal NEG [facility] Comment on above: Performed By: #### U HCG, UAMIC ####[facility] [place] [address] , [place] [address] Lab Director: Baldomero Espinoza MD Spec. [place],Ur 1.010 Normal 1.010-1.020 [facility] Comment on above: Performed By: #### U HCG, UAMIC ####[facility] [place] [address] Lab Director: Baldomero Espinoza MD Urine RBC's 0 TO 2 Normal 0-2 [facility] Comment on above: Performed By: #### U HCG, UAMIC ####[facility] [place] [address] lab Director: Baldomero Espinoza MD Urine WBC's 0 TO 2 Normal 0-5 [facility] Comment on above: Performed By: #### U HCG, UAMIC ####[facility] [place] [address] lab Director: Baldomero Espinoza MD Urobilinogen,Ur Normal Normal 0.0-1.[address] [facility] Comment on above: Performed By: #### U HCG, UAMIC ####[address] [place] [address] lab Director: Baldomero Espinoza MD Auto Diffon 10-20-2022 Basophils/100 WBC (Bld) 1.0 % Normal 0.0-2.0 [facility] Comment on above: Order Comment: Order Added by Discern Expert. Performed By: #### 2 460829, 1681257, 4558116, [id number], 4017714 ####[facility] [address] [place] [address] Basophils/Leukocyte s Auto (Bld) [Pure # fraction] 0.0 E9/L Normal 0.0-0.2 [facility] Comment on above: Order Comment: Order Added by Discern Expert. Performed By: #### 2 063474, 9242827, 3219960, [id number], 1175274 ####[facility] [address] [place] [address] Eosinophils/100 WBC (Bld) 2.2 % Normal 0.0-8.0 [facility] Comment on above: Order Comment: Order Added by Discern Expert. Performed By: #### 2 004288, 7707626, 3494024, 26230452, 5998113 ####[facility] [address] [place] [address] Eosinophils/Leukocy stevan Auto (Bld) [Pure # fraction] 0.1 E9/L Normal 0.0-0.5 [facility] Comment on above: Order Comment: Order Added by Discern Expert. Performed By: #### 2 029144, 9927803, 1347747, 58797045, 6523595 ####[address] [place] [address] Lymphocytes/100 WBC (Bld) 35.9 % Normal 14.0-50.0 [facility] Comment on above: Order Comment: Order Added by Discern Expert. Performed By: #### 2 496174, 6804406, 0851098, 85853153, 0048358 ####[address] [place] [address] Lymphocytes/Leukocy stevan Auto (Bld) [Pure # fraction] 1.6 E9/L Normal 1.0-4.0 [facility] Comment on above: Order Comment: Order Added by Discern Expert. Performed By: #### 2 258131, 6756385, 4422929, 55691158, 1497266 ####[address] [address] Monocytes/100 WBC (Bld) 5.9 % Normal 4.0-14.0 [facility] Comment on above: Order Comment: Order Added by Discern Expert. Performed By: #### 2 904442, 2782998, 4483253, 88941769, 9763528 ####[address] [place] [address] Monocytes/Leukocyte s Auto (Bld) [Pure # fraction] 0.3 E9/L Normal 0.2-1.0 [facility] Comment on above: Order Comment: Order Added by Discern Expert. Performed By: #### 2 474143, 6344000, 0558644, 47683104, 6864471 ####[address] [place] [address] Neutrophils/100 WBC (Bld) 55.0 % Normal 36.0-75.0 [facility] Comment on above: Order Comment: Order Added by Discern Expert. Performed By: #### 2 706765, 6869218, 9223063, 66858792, 1611209 ####[address] [place] [address] Neutrophils/Leukocy stevan Auto (Bld) [Pure # fraction] 2.5 E9/L Normal 2.0-7.5 [facility] Comment on above: Order Comment: Order Added by Discern Expert. Performed By: #### 2 859074, 2139344, 4464590, 07022926, 0183562 ####[address] [address] CBC w/ Auto Diffon 3 Erythrocyte distribution width (RBC) [Ratio] 14.0 % Normal 10.9-14.2 [facility] Comment on above: Performed By: #### 2 502900, 7925505, 4623487, 75593308, 5881746 ####[address] [address] Hematocrit (Bld) [Volume fraction] 40.1 % Normal 34.0-46.0 [facility] Comment on above: Performed By: #### 2 646920, 9287191, 7287823, 70343147, 2971847 ####[address] [address] Hemoglobin (Bld) [Mass/Vol] 13.7 g/dL Normal 12.0-16.0 [facility] Comment on above: Performed By: #### 2 898138, 9525248, 5378218, 82682144, 3276314 ####[address] [address] MCH (RBC) [Entitic mass] 30.7 pg Normal 27.0-34.0 [facility] Comment on above: Performed By: #### 2 743796, 8267140, 2585059, 04841278, 7321341 ####[address] [address] MCHC (RBC) [Mass/Vol] 34.2 g/dL Normal 31.4-36.0 [facility] Comment on above: Performed By: #### 2 918752, 1492680, 2370872, 45099703, 4125717 ####[address] [place] [address] MCV (RBC) [Entitic vol] 89.9 fL Normal 80.0-100.0 [facility] Comment on above: Performed By: #### 2 473230, 0208142, 0749924, 28700655, 4105964 ####[address] [place] [address]57 Platelet mean volume (Bld) [Entitic vol] 9.7 fL Normal 6.4-10.8 [facility] Comment on above: Performed By: #### 2 448378, 8206703, 3143201, 43160709, 3927338 ####[place] [address] Platelets (Bld) [#/Vol] 258.0 E9/L Normal 150.0-500.0 [facility] Comment on above: Performed By: #### 2 862872, 2101277, 2052059, 30537623, 8666916 ####[place] [address] RBC (Bld) [#/Vol] 4.5 E12/L Normal 4.3-5.9 [facility] Comment on above: Performed By: #### 2 475009, 5831772, 9386646, 23024252, 3975056 ####[address] [place] [address] WBC corrected for nucl RBC Auto (Bld) [#/Vol] 4.5 E9/L Normal 4.0-11.0 [facility] Comment on above: Performed By: #### 2 203160, 7907089, 8057778, 33950161, 7995962 ####[address] [address] CHEMISTRYOrdered By: SYSTEM SYSTEM on 10-20-2022 Albumin [...] - 11.1 mg/dL [facility] Chloride [Moles/Vol] 108 mmol/L Normal 101 - 111 mmol/L [facility] CO2 [Moles/Vol] 24 mmol/L Normal 21 - 31 mmol/L [facility] Creatinine [Mass/Vol] 0.9 mg/dL Normal 0.5 - 1.3 mg/dL [facility] GFR/1.73 sq M.predicted among non-blacks MDRD (S/P/Bld) [Vol rate/Area] 87 mL/min/1.73 m2 Normal >=59mL/min/1.73 m2 [facility] Chem S Lipase [Catalytic activity/Vol] 35 U/L Normal 13 - 58 unit/L [facility] Potassium [Moles/Vol] 3.8 mmol/L Normal 3.5 - 5.3 mmol/L [facility] Protein [Mass/Vol] 7.2 g/dL Normal 6.0 - 7.8 gm/dL [facility] Sodium [Moles/Vol] 139 mmol/L Normal 135 - 145 mmol/L [facility] Urea nitrogen [Mass/Vol] 11 mg/dL Normal 5 - 21 mg/dL [facility] CHEMISTRYOrdered By: Pranav Meng on 10-20-2022 Albumin/Globulin [Mass ratio] 1.4 {ratio} Normal 1.1 - 2.2 [facility] Chem S Anion gap [Moles/Vol] 11 mmol/L Normal 6 - 16 mEq/L [facility] Chem S Globulin (S) [Mass/Vol] 3.0 g/dL Normal 1.4 - 4.0 gm/dL [facility] Chem S Glucose [Mass/Vol] 86 mg/dL Normal 55 - 199 mg/dL [facility] Chem S Urea nitrogen/Creatinine [Mass ratio] 12 mg/mg Normal 10 - [facility] Chem S CMPon 10-20-2022 Albumin/Globulin (S) [Mass conc ratio] 1.4 Normal 1.1-2.2 [facility] Comment on above: Performed By: #### 2 013782, 5581533, 6875256, 65115245, 3758123 ####[facility] [address] [place] [address] Anion gap [Moles/Vol] 11 mmol/L Normal 6-16 [facility] Comment on above: Performed By: #### 2 065299, 2790502, 4675412, 76281608, 9304549 ####[facility] [address] [place] [address] Globulin (S) [Mass/Vol] 3.0 g/dL Normal 1.4-4.0 [facility] Comment on above: Performed By: #### 2 369571, 2683707, 3364396, 55631837, 5377495 ####[facility] [address] [place] [address] Glucose [Mass/Vol] 86 mg/dL Normal 55-199 [facility] Comment on above: Result Comment: If t his glucose result represents a fasting glucose, interpretation should refer to the following reference range: 55-99 mg/dL Performed By: #### 2 758742, 1074252, 6875794, 82342291, 9823884 ####[facility] [address] [place] [address] Urea nitrogen/Creatinine [Mass ratio] 12 No Units Normal 10- [facility] Comment on above: Performed By: #### 2 450964, 2526171, 7602154, 87953489, 4526822 ####[facility] [address] [place] [address] Albumin [Mass/Vol] 4.2 g/dL Normal 3.3-5.0 [facility] Comment on above: Performed By: #### 2 869463, 8422331, 4216854, 22264129, 6171144 ####[facility] [address] [place] [address] ALP [Catalytic activity/Vol] 55 Int._Unit/L Normal 21-98 [facility] Comment on above: Performed By: #### 2 863560, 8902884, 3317517, 47064010, 8723908 ####[facility] [address] [place] [address] ALT No additional P-5'-P [Catalytic activity/Vol] 27 Int._Unit/L Normal 6-46 [facility] Comment on above: Performed By: #### 2 625053, 9938733, 7164773, 64670268, 5400770 ####[facility] [address] [place] [address] AST [Catalytic activity/Vol] 42 Int._Unit/L Normal 5-43 [facility] Comment on above: Performed By: #### 2 477844, 3026356, 8306938, 82093510, 1064958 ####[facility] [address] [place] [address] Bilirubin [Mass/Vol] 0.4 mg/dL Normal 0.0-1.1 [facility] Comment on above: Performed By: #### 2 775371, 0777785, 9469809, 91405666, 9170391 ####[facility] [address] [place] [address] Calcium [Mass/Vol] 9.0 mg/dL Normal 8.9-11.1 [facility] Comment on above: Performed By: #### 2 217811, 8383130, 0833480, 92489852, 5952543 ####[facility] [address] [place] [address] Chloride [Moles/Vol] 108 mmol/L Normal 101-111 [facility] Comment on above: Performed By: #### 2 719495, 5443267, 7113903, 03398459, 1138051 ####[facility] [address] [place] [address] CO2 [Moles/Vol] 24 mmol/L Normal 21-31 [facility] Comment on above: Performed By: #### 2 581515, 5844897, 1419479, 58513912, 0441526 ####[facility] [address] [place] [address] Creatinine [Mass/Vol] 0.9 mg/dL Normal 0.5-1.3 [facility] Comment on above: Performed By: #### 2 817562, 0898834, 5924045, 77361782, 4000344 ####[facility] [address] [place] [address] Potassium [Moles/Vol] 3.8 mmol/L Normal 3.5-5.3 [facility] Comment on above: Performed By: #### 2 489666, 0280408, 8437034, 96003728, 0499496 ####[facility] [address] [place] [address] Protein [Mass/Vol] 7.2 g/dL Normal 6.0-7.8 [facility] Comment on above: Performed By: #### 2 677492, 7746044, 4875945, 11606501, 2625567 ####[facility] [address] [place] [address] Sodium [Moles/Vol] 139 mmol/L Normal 135-145 [facility] Comment on above: Performed By: #### 2 307277, 6298764, 5937395, 27062297, 2007226 ####[facility] [address] [place] [address] Urea nitrogen [Mass/Vol] 11 mg/dL Normal 5-21 [facility] Comment on above: Performed By: #### 2 800393, 5698256, 3275493, 82320308, 3008581 ####[facility] [address] [place] [address] CNPNon 10-20-2022 CNPN Normal [facility] CT Abdomen/Pelvis w/o Contra ston 10-20-2022 CT Abdomen/Pelvis w/o Contrast Normal [facility] CT Chest w/o Contraston CT Chest w/o Contrast Normal [facility] Consent for Treatmenton Consent for Treatment [id number]#1.00CD:127 Normal [facility] Discharge Instructionson Discharge Instructions [id number]#1.00CD:127 Normal [facility] ED Clinical Summaryon 2022 ED Clinical Summary Normal [facility] ED Patient Education Noteon 10-20-2022 ED Patient Education Note Normal [facility] ED Patient Summaryon 023 ED Patient Summary Normal [facility] HEMATOLOGYOrdered By: SYSTEM SYSTEM on 10-20-2022 [...] 0.3 E9/L Normal 0.2 - 1.0 E9/L [facility] Neutrophils/100 WBC (Bld) 55.0 % Normal 36.0 - 75.0 % [facility] Neutrophils/Leukocy stevan Auto (Bld) [Pure # fraction] 2.5 E9/L Normal 2.0 - 7.5 E9/L [facility] HEMATOLOGYOrdered By: Aliyah Renteria on 10-20-2022 Erythrocyte distribution width (RBC) [...] 9.7 fL Normal 6.4 - 10.8 fL [facility] Platelets (Bld) [#/Vol] 258.0 E9/L Normal 150.0 - 500.0 E9/L [facility] RBC (Bld) [#/Vol] 4.5 E12/L Normal 4.3 - 5.9 E12/L [facility] WBC corrected for nucl RBC Auto (Bld) [#/Vol] 4.5 E9/L Normal 4.0 - 11.0 E9/L [facility] Lipase Levelon 10-20-2022 Lipase [Catalytic activity/Vol] 35 U/L Normal 13-58 [facility] Comment on above: Performed By: #### 2 690547, 4724382, 9968818, 88492449, 1740011 ####[facility] [address] [place] [address] Prescriptions/Work Noteson 0 10-20-2022 Prescriptions/Work Notes [id number]#1.00CD:127 Normal [facility] Prescriptions/Work Notes [id number]#1.00CD:127 Normal [facility] Comment on above: Other Comment: scann ed in error UA With Cult Reflexon 2022 Bilirubin Ql (U) Negative Normal Negative [facility] Comment on above: Performed By: #### 1 3516862 ####[facility] [address] [place] [address] Clarity (U) CLEAR Normal Clear [facility] Comment on above: Performed By: #### 1 2565290 ####[facility] [address] [place] [address] Color (U) YELLOW Normal Yellow [facility] Comment on above: Performed By: #### 1 1510789 ####[facility] [address] [place] [address] Epithelial cells.squamous LM.HPF (Urine sed) [#/Area] 3-4 Normal 0-2 [facility] Comment on above: Performed By: #### 1 7105835 ####[facility] [address] [place] [address] Glucose Test strip (U) [Mass/Vol] Negative Normal Negative [facility] Comment on above: Performed By: #### 1 5888919 ####[facility] [address] [place] [address] Hemoglobin Ql (U) Negative Normal Negative [facility] Comment on above: Performed By: #### 1 0066228 ####[facility] [address] [place] [address] Ketones (U) [Mass/Vol] Negative Normal Negative [facility] Comment on above: Performed By: #### 1 9680762 ####[facility] [address] [place] [address] [place].plasma/Lith ium.RBC (Bld) [Mass ratio] 0-3 Normal 0-3 [facility] Comment on above: Performed By: #### 1 0545507 ####[facility] [address] [place] [address] Nitrite Ql (U) Negative Normal Negative [facility] Comment on above: Performed By: #### 1 0614142 ####[address] [address] pH (U) 7.5 [pH] Invalid Interpretation Code 5.0-9.0 [facility] Comment on above: Performed By: #### 1 0128827 ####[address] [address] Protein (U) [Mass/Vol] Negative Normal Negative [facility] Comment on above: Performed By: #### 1 1597307 ####[address] [address] Specific gravity (U) [Rel density] 1.015 Invalid Interpretation Code 1.005-1.030 [facility] Comment on above: Performed By: #### 1 7350813 ####[address] [address] Type of Urine collection method Clean Catch Normal [facility] Comment on above: Performed By: #### 1 0791236 ####[address] [address] Urobilinogen Qn (U) 0.2 {Munir'U}/dL Normal 0.0-1.0 [facility] Comment on above: Performed By: #### 1 0108744 ####[address] [address] WBC Auto Ql (U) Negative Normal Negative [facility] Comment on above: Performed By: #### 1 2792415 ####[facility] [address] [place] [address] WBC LM.HPF (Urine sed) [#/Area] 0-5 Normal 0-5 [facility] Comment on above: Performed By: #### 1 0063124 ####[facility] [address] [place] [address] URINALYSISOrdered By: Edilberto Meng on 10-20-2022 Bilirubin [...] AM) Normal Negative [facility] UA Auto SS [place].plasma/Lith ium.RBC (Bld) [Mass ratio] 0-3 /HPF Normal [...] [facility] UA Auto SS Urobilinogen Qn (U) 0.8847005 {Munir'U}/dL Normal 0.0 - 1.0 EU/dL [facility] UA Auto SS WBC Auto Ql (U) Negative (10/20/22 10:25 AM) Normal Negative [facility] UA Auto SS WBC LM.HPF (Urine sed) [#/Area] 0-5 /HPF Normal 0-5/HPF [facility] UA Auto SS eGFRon 10-20-2022 GFR/1.73 sq M.predicted among non-blacks MDRD (S/P/Bld) [Vol rate/Area] 87 mL/min/1.73 m2 Normal >=59 [facility] Comment on above: Order Comment: Order added by Discern Expert. 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 Kidney failure is indicated at less than 15 mL/min/1.73m2. Performed By: #### 2 870722, 7723148, 4279077, 30849897, 4597701 ####[facility] [address] [place] [address] Auto DiffOrdered By: SYSTEM SYSTEM on 10-19-2022 Basophils/100 WBC (Bld) 0.8 % Normal 0.0-2.0 [facility] Comment on above: Order Comment: Order Added by Mariela Expert. Performed By: #### 2 677615, 9555798, 43024609, 5402146, 2496179, 96486509, 0053715 ####[facility] [address] [place] [address] Basophils/Leukocyte s Auto (Bld) [Pure # fraction] 0.0 E9/L Normal 0.0-0.2 [facility] Comment on above: Order Comment: Order Added by Discern Expert. Performed By: #### 2 490143, 1141822, 37739114, 3097217, 2069065, 21629512, 5302280 ####[facility] [address] [place] [address] Eosinophils/100 WBC (Bld) 3.5 % Normal 0.0-8.0 [facility] Comment on above: Order Comment: Order Added by Mariela Expert. Performed By: #### 2 817113, 4227983, 79049639, 4697095, 2676714, 34567415, 7505409 ####[facility] [address] [place] [address] Eosinophils/Leukocy stevan Auto (Bld) [Pure # fraction] 0.2 E9/L Normal 0.0-0.5 [facility] Comment on above: Order Comment: Order Added by Discern Expert. Performed By: #### 2 076120, 9585806, 40771553, 3910444, 3414536, 58720393, 8202309 ####[address] [place] [address] Lymphocytes/100 WBC (Bld) 47.3 % Normal 14.0-50.0 [facility] Comment on above: Order Comment: Order Added by Discern Expert. Performed By: #### 2 645778, 9764958, 68891537, 4856851, 6940151, 82424825, 3918760 ####[address] [address] Lymphocytes/Leukocy stevan Auto (Bld) [Pure # fraction] 2.1 E9/L Normal 1.0-4.0 [facility] Comment on above: Order Comment: Order Added by Mariela Expert. Performed By: #### 2 257952, 8768387, 66918571, 6875812, 2572985, 03496706, 3008040 ####[address] [address] Monocytes/100 WBC (Bld) 6.6 % Normal 4.0-14.0 [facility] Comment on above: Order Comment: Order Added by Mariela Expert. Performed By: #### 2 265314, 0146783, 84319426, 1318061, 1188092, 57038931, 4415041 ####[address] [address] Monocytes/Leukocyte s Auto (Bld) [Pure # fraction] 0.3 E9/L Normal 0.2-1.0 [facility] Comment on above: Order Comment: Order Added by Mariela Expert. Performed By: #### 2 675424, 1890803, 94353773, 7729559, 1014758, 90008364, 8072561 ####[address] [address] Neutrophils/100 WBC (Bld) 41.8 % Normal 36.0-75.0 [facility] Comment on above: Order Comment: Order Added by Discern Expert. Performed By: #### 2 229470, 9284383, 91104878, 8142670, 8711840, 04570443, 7104959 ####[place] [address] [place] [address] Neutrophils/Leukocy stevan Auto (Bld) [Pure # fraction] 1.8 E9/L Low 2.0-7.5 [facility] Comment on above: Order Comment: Order Added by Discern Expert. Performed By: #### 2 350089, 8747396, 41327562, 4761285, 8798516, 72825862, 1397863 ####[place] [address] [address] BMPOrdered By: SYSTEM SYSTEM on 10-19-2022 Creatinine [Mass/Vol] 0.8 mg/dL Normal 0.5-1.3 [facility] Comment on above: Performed By: #### 2 115905, 3749441, 66865989, 2421502, 0125538, 95779452, 6527594 ####[place] [address] [address] Urea nitrogen [Mass/Vol] 9 mg/dL Normal 5-21 [facility] Comment on above: Performed By: #### 2 747974, 0952393, 26821863, 6573232, 9330261, 25952834, 8167978 ####[place] [address] [place] [address] Anion gap [Moles/Vol] 10 mmol/L Normal 6-16 [facility] Comment on above: Performed By: #### 2 983071, 2514448, 63983400, 4001184, 2982717, 78345384, 2606154 ####[place] [place] [address] Calcium [Mass/Vol] 9.3 mg/dL Normal 8.9-11.1 [facility] Comment on above: Performed By: #### 2 847279, 4439452, 01257494, 3040297, 5541935, 20482907, 4592671 ####[facility] [address] [place] [address] Chloride [Moles/Vol] 108 mmol/L Normal 101-111 [facility] Comment on above: Performed By: #### 2 810197, 2642825, 50390043, 7496926, 5288286, 43796616, 2432033 ####[place] [address] [place] [address] CO2 [Moles/Vol] 25 mmol/L Normal 21-31 [facility] Jonathan blade Comment on above: Performed By: #### 2 672738, 4409605, 58516771, 8532582, 2435816, 58633924, 4992959 ####[address] [address] Glucose [Mass/Vol] 83 mg/dL Normal 55-199 [facility] R emisol Comment on above: Result Comment: If t his glucose result represents a fasting glucose, interpretation should refer to the following reference range: 55-99 mg/dL Performed By: #### 2 363882, 3578248, 20343524, 3133063, 5172948, 38326767, 2766412 ####[place] [address] [address] Potassium [Moles/Vol] 4.1 mmol/L Normal 3.5-5.3 [facility] Comment on above: Performed By: #### 2 840280, 2961841, 19174212, 8838186, 8761194, 39730707, 5637288 ####[address] [place] [address] Sodium [Moles/Vol] 139 mmol/L Normal 135-145 [facility] R emisol Comment on above: Performed By: #### 2 312752, 3772346, 46595423, 8665885, 1356756, 22205189, 5105444 ####[place] [address] [address] BMPon 10-19-2022 Urea nitrogen/Creatinine [Mass ratio] 11 No Units Normal 10-20 [facility] Comment on above: Performed By: #### 2 685911, 8675614, 45575649, 6938023, 1208170, 00736243, 0512651 ####[facility] [address] [place] [address] CBC w/ Auto DiffOrdered By: Kaye Case on 10-19-2022 Erythrocyte distribution width (RBC) [Ratio] 13.7 % Normal 10.9-14.2 [facility] Comment on above: Performed By: #### 2 174295, 6842524, 20956947, 9144326, 2121275, 42083224, 8775107 ####[facility] [address] [place] [address] Hematocrit (Bld) [Volume fraction] 40.7 % Normal 34.0-46.0 [facility] Comment on above: Performed By: #### 2 056183, 1376541, 10615815, 0279770, 2232859, 97768177, 7178328 ####[facility] [address] [place] [address] Hemoglobin (Bld) [Mass/Vol] 14.1 g/dL Normal 12.0-16.0 [facility] Comment on above: Performed By: #### 2 540211, 3693641, 75065359, 7565604, 7195216, 95794166, 4764334 ####[facility] [address] [place] [address] MCH (RBC) [Entitic mass] 31.0 pg Normal 27.0-34.0 [facility] Comment on above: Performed By: #### 2 083813, 9982156, 57175341, 4198311, 3482498, 86659432, 2671681 ####[address] [address] MCHC (RBC) [Mass/Vol] 34.5 g/dL Normal 31.4-36.0 [facility] Comment on above: Performed By: #### 2 699359, 0240377, 67035559, 5185681, 0156272, 42201682, 6093842 ####[place] [address] [address] MCV (RBC) [Entitic vol] 89.8 fL Normal 80.0-100.0 [facility] Comment on above: Performed By: #### 2 627055, 6088675, 80008781, 1791191, 0645239, 60849592, 8627468 ####[place] [address] [address] Platelet mean volume (Bld) [Entitic vol] 10.3 fL Normal 6.4-10.8 [facility] Comment on above: Performed By: #### 2 843728, 6472637, 77702668, 8115061, 9774433, 65341233, 4344866 ####[place] [address] Platelets (Bld) [#/Vol] 245.0 E9/L Normal 150.0-500.0 [facility] Comment on above: Performed By: #### 2 700177, 7290039, 58880142, 7289735, 4330820, 40229218, 8384860 ####[place] [address] [address] RBC (Bld) [#/Vol] 4.5 E12/L Normal 4.3-5.9 [facility] Comment on above: Performed By: #### 2 890633, 3384009, 87446646, 7388551, 4465356, 48612682, 2204441 ####[place] [address] [address] WBC corrected for nucl RBC Auto (Bld) [#/Vol] 4.4 E9/L Normal 4.0-11.0 [facility] Comment on above: Performed By: #### 2 049405, 7701330, 20162639, 2997986, 9355568, 79878781, 0435833 ####[facility] [address] [place] [address] CHEMISTRYOrdered By: SYSTEM SYSTEM on 10-19-2022 Albumin/Globulin [Mass ratio] 1.5 {ratio} Normal 1.1 - 2.2 [facility] ALP [Catalytic activity/Vol] 63 [iU]/d Normal 21 - 98 Int._Unit/L [facility] ALT No additional P-5'-P [Catalytic activity/Vol] 30 [iU]/d Normal 6 - 46 Int._Unit/L [facility] AST [Catalytic activity/Vol] 47 [iU]/d High 5 - 43 Int._Unit/L [facility] Bilirubin.indirect [Mass or moles/Vol] Unable to Calculate mg/dL Invalid Interpretation Code 0.1 - 0.9 mg/dL [facility] Urea nitrogen/Creatinine [Mass ratio] 11 mg/mg Normal 10 - 20 [facility] Consent for Treatmenton Consent for Treatment [id number] C7#1.00CD:127 Normal [facility] Discharge Instructionson Discharge Instructions [id number]#1.00CD:127 Normal [facility] ED Clinical Summaryon 2022 ED Clinical Summary Normal [facility] ED Note-Physicianon 10-20-19 ED Note-Physician Normal [facility] Comment on above: Result Comment: Elec tronically Signed By: Earnest Jett DO\.br\Date and Time Signed: 10/19/22 13:41 EDT ED Patient Education Noteon 10-19-2022 ED Patient Education Note Normal [facility] ED Patient Summaryon 023 ED Patient Summary Normal [facility] Hep Func Panelon 10-19-2022 Bilirubin.indirect [Mass or moles/Vol] UTC Abnormal 0.1-0.9 [facility] Comment on above: Result Comment: Resu lt verified by Discern Rule. Performed result UTC (Unable to Calculate) was sent as an Alpha code due the inability to calculate a valid numeric value. Performed By: #### 2 077108, 7021777, 05056039, 4105475, 5086406, 89659192, 5658908 ####[address] [place] [address] Albumin/Globulin (S) [Mass conc ratio] 1.5 Normal 1.1-2.2 [facility] Comment on above: Performed By: #### 2 988111, 1179342, 55873853, 0942351, 7064950, 75431010, 6089381 ####[address] [place] [address] ALP [Catalytic activity/Vol] 63 Int._Unit/L Normal 21-98 [facility] Comment on above: Performed By: #### 2 468206, 1417032, 95442333, 9066141, 0818622, 26985991, 0416800 ####[address] [address] ALT No additional P-5'-P [Catalytic activity/Vol] 30 Int._Unit/L Normal 6-46 [facility] Comment on above: Performed By: #### 2 686127, 1463821, 42962428, 9341819, 9009069, 30947920, 8876822 ####[address] [place] [address] AST [Catalytic activity/Vol] 47 Int._Unit/L High 5-43 [facility] Comment on above: Performed By: #### 2 360723, 0382079, 50245343, 4108199, 8756918, 85506252, 1091052 ####[address] [place] [address] Hep Func PanelOrdered By: Matthew Kenney Cuisine SYSTEM on 10-19-2022 Albumin [Mass/Vol] 4.4 g/dL Normal 3.3-5.0 [facility] R emisol Comment on above: Performed By: #### 2 091115, 7122558, 10402626, 8690367, 7778839, 33311907, 5764317 ####[facility] [address] [place] [address] Bilirubin [Mass/Vol] 0.5 mg/dL Normal 0.0-1.1 FT Remisol Comment on above: Performed By: #### 2 [id number], [id number], [id number], 4687102, 7498857, [id number], [id number] ####[facility] [address] [place] [address] Globulin (S) [Mass/Vol] 3.0 g/dL Normal 1.4-4.0 FT Remisol Comment on above: Performed By: #### 2 [id number], [id number], [id number], 2818650, 2553446, [id number], [id number] ####[facility] [address] [place] [address] Protein [Mass/Vol] 7.4 g/dL Normal 6.0-7.8 [facility] [place] emisol Comment on above: Performed By: #### 2 756203, [id number], [id number], 5643379, 6355327, [id number], 1534811 ####[address] [address] Bilirubin.direct [Mass/Vol] mg/dL Normal 0.1-0.4 FT Remisol Comment on above: Performed By: #### 2 850750, 4225221, 49076621, 7391276, 3206234, 71284598, 1220845 ####[address] [address] Lipase LevelOrdered By: SYST EM SYSTEM on 10-19-2022 Lipase [Catalytic activity/Vol] 89 U/L High 13-58 [facility] Comment on above: Performed By: #### 2 933742, 0951234, 42745800, 4422854, 5029795, 74222233, 0263582 ####[address] [address] Prescriptions/Work Noteson 0 10-19-2022 Prescriptions/Work Notes [id number] 7#1.00CD:127 Normal [facility] TSH With T4fr ReflexOrdered By: SYSTEM SYSTEM on 10-19-2022 TSH Qn 0.68 m[IU]/L Normal 0.34-5.60 [facility] Remisol Comment on above: Performed By: #### 2 615171, 5698858, 86985922, 5559718, 8948017, 74638333, 6811563 ####[facility] [address] [place] [address] UA With Cult Reflexon 2022 Bilirubin Ql (U) Negative Normal Negative [facility] Comment on above: Performed By: #### 1 6863555 ####[address] [address] Clarity (U) CLEAR Normal Clear [facility] Comment on above: Performed By: #### 1 5106966 ####[address] [address] Color (U) YELLOW Normal Yellow [facility] Comment on above: Performed By: #### 1 1782972 ####[facility] [address] [place] [address] Epithelial cells.squamous LM.HPF (Urine sed) [#/Area] 0-2 Normal 0-2 [facility] Comment on above: Performed By: #### 1 4844211 ####[facility] [address] [place] [address] Glucose Test strip (U) [Mass/Vol] Negative Normal Negative [facility] Comment on above: Performed By: #### 1 4897618 ####[facility] [address] [place] [address] Hemoglobin Ql (U) Negative Normal Negative [facility] Comment on above: Performed By: #### 1 7038182 ####[address] [address] Ketones (U) [Mass/Vol] Negative Normal Negative [facility] Comment on above: Performed By: #### 1 7489458 ####[address] [address] [place].plasma/Lith ium.RBC (Bld) [Mass ratio] 0-3 Normal 0-3 [facility] Comment on above: Performed By: #### 1 1945526 ####[address] [address] Nitrite Ql (U) Negative Normal Negative [facility] Comment on above: Performed By: #### 1 5352344 ####[address] [address] pH (U) 7.5 [pH] Invalid Interpretation Code 5.0-9.0 [facility] Comment on above: Performed By: #### 1 2803884 ####[address] [address] Protein (U) [Mass/Vol] Negative Normal Negative [facility] Comment on above: Performed By: #### 1 9894747 ####[address] [address] Specific gravity (U) [Rel density] 1.010 Invalid Interpretation Code 1.005-1.030 [facility] Comment on above: Performed By: #### 1 9598343 ####[address] [address] Type of Urine collection method Clean Catch Normal [facility] Comment on above: Performed By: #### 1 2915710 ####[address] [address] Urobilinogen Qn (U) 0.2 {Munir'U}/dL Normal 0.0-1.0 [facility] Comment on above: Performed By: #### 1 5112008 ####[address] [address] WBC Auto Ql (U) Negative Normal Negative [facility] Comment on above: Performed By: #### 1 6397036 ####[address] [address] WBC LM.HPF (Urine sed) [#/Area] 0-5 Normal 0-5 [facility] Comment on above: Performed By: #### 1 4607189 ####[facility] [address] [place] [address] URINALYSISOrdered By: Kaye brito on 10-19-2022 Bilirubin [...] AM) Normal Negative [facility] UA Auto SS [place].plasma/Lith ium.RBC (Bld) [Mass ratio] 0-3 /HPF Normal [...] Desc Clean Catch (10/19/22 9:18 AM) Normal [facility] UA Auto SS Urobilinogen Qn (U) 0.9084307 {Munir'U}/dL Normal 0.0 - 1.0 EU/dL [facility] UA Auto SS WBC Auto Ql (U) Negative (10/19/22 9:18 AM) Normal Negative [facility] UA Auto SS WBC LM.HPF (Urine sed) [#/Area] 0-5 /HPF Normal 0-5/HPF [facility] UA Auto SS XR Chest 2 Viewson 3 XR Chest 2 Views Normal [place] [facility] eGFROrdered By: SYSTEM ROMYE M on 10-19-2022 GFR/1.73 sq M.predicted among non-blacks MDRD (S/P/Bld) [Vol rate/Area] 100 mL/min/1.73 m2 Normal >=59 [facility] Chem S Comment on above: Order Comment: Order added by Discern Expert. 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 Kidney failure is indicated at less than 15 mL/min/1.73m2. Performed By: #### 2 592052, 5910596, 50795400, 2844257, 1141342, 49851579, 0548817 ####[facility] [address] [place] [address] [facility] HEALTHon 10-18-2022 ALLIED HEALTH HNO ID: [id number] Author: Karina Gonzales Tech Service: ? Author Type: Technologist [...] October 18, 2022 TIME: 10:07 AM Normal [facility] CBC W Auto Differential pane l (Bld)on 10-18-2022 Basophils (Bld) [#/Vol] 0.03 10*3/uL Normal <0.11 [facility] Comment on above: Order Comment: Speci men Type: BLOOD SPECIMEN Ordering Facility: [facility] Address: [address] [place] [address] Performed By: #### 5 7021-8 #### [facility] CLIA [id number] [address] [place] Basophils/100 WBC (Bld) 0.8 % Normal [facility] Comment on above: Order Comment: Speci men Type: BLOOD SPECIMEN Ordering Facility: [facility] Address: [address] [place] [address] Performed By: #### 5 7021-8 #### [facility] CLIA [id number] [address] [place] [address] [place] Differential cell count method Nom (Bld) Auto Normal [facility] Comment on above: Order Comment: Speci men Type: BLOOD SPECIMEN Ordering Facility: [facility] Address: [address] [address] Performed By: #### 5 7021-8 #### [facility] CLIA [id number] [address] [facility] Eosinophils (Bld) [#/Vol] 0.14 10*3/uL Normal <0.46 [facility] Comment on above: Order Comment: Speci men Type: BLOOD SPECIMEN Ordering Facility: [facility] Address: [address] [address] Performed By: #### 5 7021-8 #### [facility] CLIA [id number] [address] Eosinophils/100 WBC (Bld) 3.7 % Normal [facility] Comment on above: Order Comment: Speci men Type: BLOOD SPECIMEN Ordering Facility: [facility] Address: [address] [address] Performed By: #### 5 7021-8 #### [facility] CLIA [id number] [address] Erythrocyte distribution width (RBC) [Ratio] 12.7 % Normal 11.5-15.0 [facility] Comment on above: Order Comment: Speci men Type: BLOOD SPECIMEN Ordering Facility: [facility] Address: [address] [address] Performed By: #### 5 7021-8 #### [facility] CLIA [id number] [address] [place] Hematocrit (Bld) [Volume fraction] 38.5 % Normal 36.0-46.0 [facility] Comment on above: Order Comment: Speci men Type: BLOOD SPECIMEN Ordering Facility: [facility] Address: [address] [address] Performed By: #### 5 7021-8 #### [facility] CLIA [id number] [address] [place] Hemoglobin (Bld) [Mass/Vol] 12.9 g/dL Normal 11.5-15.5 [facility] Comment on above: Order Comment: Speci men Type: BLOOD SPECIMEN Ordering Facility: [facility] Address: [address] [address] Performed By: #### 5 7021-8 #### [facility] CLIA [id number] [address] Immature granulocytes (Bld) [#/Vol] 10*3/uL Normal <0.10 [facility] Comment on above: Order Comment: Speci men Type: BLOOD SPECIMEN Ordering Facility: [facility] Address: [address] [address] Performed By: #### 5 7021-8 #### [facility] CLIA [id number] [address] Immature granulocytes/100 WBC (Bld) 0.3 % Normal [facility] Comment on above: Order Comment: Speci men Type: BLOOD SPECIMEN Ordering Facility: [facility] Address: [address] [address] Performed By: #### 5 7021-8 #### [facility] CLIA [id number] [address] Lymphocytes (Bld) [#/Vol] 1.66 10*3/uL Normal 1.00-4.00 [facility] Comment on above: Order Comment: Speci men Type: BLOOD SPECIMEN Ordering Facility: [facility] Address: [address] [place] [address] Performed By: #### 5 7021-8 #### [facility] CLIA [id number] [address] Lymphocytes/100 WBC (Bld) 43.7 % Normal [facility] Comment on above: Order Comment: Speci men Type: BLOOD SPECIMEN Ordering Facility: [facility] Address: [address] [place] [address] Performed By: #### 5 7021-8 #### [facility] CLIA [id number] [address] [place] MCH (RBC) [Entitic mass] 30.2 pg Normal 26.0-34.0 [facility] Comment on above: Order Comment: Speci men Type: BLOOD SPECIMEN Ordering Facility: [facility] Address: [address] [address] Performed By: #### 5 7021-8 #### [facility] CLIA [id number] [address] STATES OF [facility] MCHC (RBC) [Mass/Vol] 33.5 g/dL Normal 30.5-36.0 [facility] Comment on above: Order Comment: Speci men Type: BLOOD SPECIMEN Ordering Facility: [facility] Address: [address] [place] [address] Performed By: #### 5 7021-8 #### [facility] CLIA [id number] [address] OF [facility] MCV (RBC) [Entitic vol] 90.2 fL Normal 80.0-100.0 [facility] Comment on above: Order Comment: Speci men Type: BLOOD SPECIMEN Ordering Facility: [facility] Address: [address] [address] Performed By: #### 5 7021-8 #### [facility] CLIA [id number] [address] [place] Monocytes (Bld) [#/Vol] 0.28 10*3/uL Normal <0.87 [facility] Comment on above: Order Comment: Speci men Type: BLOOD SPECIMEN Ordering Facility: [facility] Address: [address] [address] Performed By: #### 5 7021-8 #### [facility] CLIA [id number] [address] Monocytes/100 WBC (Bld) 7.4 % Normal [facility] Comment on above: Order Comment: Speci men Type: BLOOD SPECIMEN Ordering Facility: [facility] Address: [address] [address] Performed By: #### 5 7021-8 #### [facility] CLIA [id number] 1 [place] [address] [place] Neutrophils (Bld) [#/Vol] 1.68 10*3/uL Normal 1.45-7.50 [facility] Comment on above: Order Comment: Speci men Type: BLOOD SPECIMEN Ordering Facility: [facility] Address: [address] [place] [address] Performed By: #### 5 7021-8 #### [facility] CLIA [id number] [address] [place] Neutrophils/100 WBC (Bld) 44.1 % Normal [facility] Comment on above: Order Comment: Speci men Type: BLOOD SPECIMEN Ordering Facility: [facility] Address: [address] [place] [address] Performed By: #### 5 7021-8 #### [facility] CLIA [id number] [address] [place] Nucleated RBC (Bld) [#/Vol] 10*3/uL Normal <0.01 [facility] Comment on above: Order Comment: Speci men Type: BLOOD SPECIMEN Ordering Facility: [facility] Address: [address] [place] [address] Performed By: #### 5 7021-8 #### [facility] CLIA [id number] [address] [place] Nucleated RBC/100 WBC (Bld) [Ratio] 0.0 /100 WBC Normal [facility] Comment on above: Order Comment: Speci men Type: BLOOD SPECIMEN Ordering Facility: [facility] Address: [address] [place] [address] Performed By: #### 5 7021-8 #### [facility] CLIA [id number] [address] [place] Platelet mean volume (Bld) [Entitic vol] 11.1 fL Normal 9.0-12.7 [facility] Comment on above: Order Comment: Speci men Type: BLOOD SPECIMEN Ordering Facility: [facility] Address: [address] [address] Performed By: #### 5 7021-8 #### [facility] CLIA [id number] [address] [place] Platelets (Bld) [#/Vol] 231 10*3/uL Normal 150-400 [facility] Comment on above: Order Comment: Speci men Type: BLOOD SPECIMEN Ordering Facility: [facility] Address: [address] [address] Performed By: #### 5 7021-8 #### [facility] CLIA [id number] [address] [place] RBC (Bld) [#/Vol] 4.27 10*6/uL Normal 3.90-5.20 [facility] Comment on above: Order Comment: Speci men Type: BLOOD SPECIMEN Ordering Facility: [facility] Address: [address] [address] Performed By: #### 5 7021-8 #### [facility] CLIA [id number] [address] WBC (Bld) [#/Vol] 3.80 10*3/uL Normal 3.70-11.00 [facility] Comment on above: Order Comment: Speci men Type: BLOOD SPECIMEN Ordering Facility: [facility] Address: [address] [place] [address] Performed By: #### 5 7021-8 #### [facility] CLIA [id number] [address] [place] ABD/PEL WO IVCONon 2022 CT ABD/PEL WO IVCON * * *Final Report* * * DATE OF EXAM: Oct 18 2022 10:07AM [facility] 0531 - CT ABD/PEL WO IVCON / [...] Tissues: No acute abnormality. Lower thorax: Unremarkable. Cephalometric Technician (topogram) images: No additional findings. IMPRESSION: Stable findings as detailed above. No acute intra-abdominal or pelvic process seen. Die Maintenance Technician: JUANCARLOS Transcribe Date/Time: Oct 18 2022 10:14A Dictated by : ADELA FISHER MD This examination was interpreted and the report reviewed and electronically signed by: ADELA FISHER MD on Oct 18 2022 10:21AM EST [id number] Normal [facility] Comprehensive metabolic 2000 panelon 10-18-2022 Albumin [Mass/Vol] 4.3 g/dL Normal 3.9-4.9 [facility] Comment on above: Order Comment: Speci men Type: BLOOD SPECIMEN Ordering Facility: [facility] Address: [address] [place] [phone] Performed By: #### 2 4323-8, 3040-3 #### [facility] CLIA [id number] [address] ALP [Catalytic activity/Vol] 73 U/L Normal 34-123 [facility] Comment on above: Order Comment: Speci men Type: BLOOD SPECIMEN Ordering Facility: [facility] Address: [address] [place] [address] Performed By: #### 2 4323-8, 3040-3 #### [facility] CLIA [id number] [address] [facility] ALT With P-5'-P [Catalytic activity/Vol] 24 U/L Normal 7-38 [facility] Comment on above: Order Comment: Speci men Type: BLOOD SPECIMEN Ordering Facility: [facility] Address: [address] [place] [address] Performed By: #### 2 4323-8, 0-3 #### [facility] CLIA [id number] [address] Anion gap [Moles/Vol] 8 mmol/L Low 9-18 [facility] Comment on above: Order Comment: Speci men Type: BLOOD SPECIMEN Ordering Facility: [facility] Address: [address] [place] [address] Performed By: #### 2 4323-8, 0-3 #### [facility] CLIA [id number] [address] AST With P-5'-P [Catalytic activity/Vol] 36 U/L High 13-35 [facility] Comment on above: Order Comment: Speci men Type: BLOOD SPECIMEN Ordering Facility: [facility] Address: [address] [place] [address] Performed By: #### 2 4323-8, 3040-3 #### [facility] CLIA [id number] [address] Bilirubin [Mass/Vol] 0.4 mg/dL Normal 0.2-1.3 [facility] Comment on above: Order Comment: Speci men Type: BLOOD SPECIMEN Ordering Facility: [facility] Address: [address] [place] [address] Performed By: #### 2 4323-8, 0-3 #### [facility] CLIA [id number] [address] [place] Calcium [Mass/Vol] 8.9 mg/dL Normal 8.5-10.2 [facility] Comment on above: Order Comment: Speci men Type: BLOOD SPECIMEN Ordering Facility: [facility] Address: [address] [address] Performed By: #### 2 [address], 0-3 #### [facility] CLIA [id number] [address] [place] Chloride [Moles/Vol] 108 mmol/L High 97-105 [facility] Comment on above: Order Comment: Speci men Type: BLOOD SPECIMEN Ordering Facility: [facility] Address: [address] [address] Performed By: #### 2 4328, 3039-3 #### [facility] CLIA [id number] [address] [place] CO2 [Moles/Vol] 26 mmol/L Normal 22-30 [facility] Comment on above: Order Comment: Speci men Type: BLOOD SPECIMEN Ordering Facility: [facility] Address: [address] [place] [address] Performed By: #### 2 [address], 3039-3 #### [facility] CLIA [id number] [address] [place] Creatinine [Mass/Vol] 0.81 mg/dL Normal 0.58-0.96 [facility] Comment on above: Order Comment: Speci men Type: BLOOD SPECIMEN Ordering Facility: [facility] Address: [address] [address] Performed By: #### 2 4323-8, 0-3 #### [facility] CLIA [id number] [address] [place] Creatinine and Glomerular filtration rate.predicted panel (S/P/Bld) 98 mL/min/1.73m??? Normal >=60 [facility] Comment on above: Order Comment: Geraldo marrero Type: BLOOD SPECIMEN Ordering Facility: [facility] Address: [address] [place] [address] Result Comment: Jessica mated Glomerular Filtration Rate [...] actual GFR. Performed By: #### 2 4323-8, 3040-3 #### [facility] CLIA [id number] 1 [place] [address] [place] Glucose [Mass/Vol] 85 mg/dL Normal 74-99 [facility] Comment on above: Order Comment: Geraldo marrero Type: BLOOD SPECIMEN Ordering Facility: [facility] Address: [address] [place] [address] Result Comment: The [place] Diabetes Association (ADA) provides guidance for cutoff [...] Standards of Medical Care in Diabetes 2016, [place] Diabetes Association. Diabetes Care. 2016.39(Suppl 1). Performed By: #### 2 4323-8, 3040-3 #### [facility] CLIA [id number] 1 [place] [address] [place] Potassium [Moles/Vol] 4.3 mmol/L Normal 3.7-5.1 [facility] Comment on above: Order Comment: Geraldo marrero Type: BLOOD SPECIMEN Ordering Facility: [facility] Address: [address] [place] [address] Performed By: #### 2 4323-8, 3040-3 #### [facility] CLIA [id number] [address] OF [facility] Protein [Mass/Vol] 6.4 g/dL Normal 6.3-8.0 [facility] Comment on above: Order Comment: Speci men Type: BLOOD SPECIMEN Ordering Facility: [facility] Address: [address] [address] Performed By: #### 2 4323-8, 3040-3 #### [facility] CLIA [id number] [address] [facility] Sodium [Moles/Vol] 142 mmol/L Normal 136-144 [facility] Comment on above: Order Comment: Speci men Type: BLOOD SPECIMEN Ordering Facility: [facility] Address: [address] [place] [address] Performed By: #### 2 4323-8, 3040-3 #### [facility] CLIA [id number] [address] [place] Urea nitrogen [Mass/Vol] 8 mg/dL Normal 7-21 [facility] Comment on above: Order Comment: Speci men Type: BLOOD SPECIMEN Ordering Facility: [facility] Address: [address] [place] [address] Performed By: #### 2 4323-8, 3040-3 #### [facility] CLIA [id number] [address] [place] ED NOTEon 10-18-2022 ED NOTE HNO ID: [id number] Author: Serafin Curiel RN Service: ? Author Type: Registered Nurse Type: ED Notes Filed: 10/18/2022 10:46 AM Note Text: Provider previously at bedside discussing results/findings. Discharge instructions, follow up recommendations and medications reviewed with patient. Pt advised to return to ED with worsening symptoms. Pt verbalizes understanding. Stable and ambulatory upon d/c Normal [facility] ED NOTE HNO ID: [id number] Author: Alannah Carter RN Service: ? Author Type: Registered Nurse Type: ED Notes Filed: 10/18/2022 7:53 AM Note Text: Bed: 26-ED Expected date: Expected time: Means of arrival: Comments: TRIAGE Normal [facility] ED PROV NOTEon 10-18-2022 ED PROV NOTE HNO ID: [id number] Author: Alverto Barrett MD Service: Emergency Medicine Author Type: Physician Type: ED Provider Notes Filed: 10/30/2022 9:22 AM Note Text: ED Provider Note Patient Name: Abbey Gracia : 1990 SERVICE DATE: 10/18/22 History Patient [...] Musculoskeletal: Gen (more content not included)... Normal [facility] Lipase SerPl-cCncon 10-19-19 23 Lipase [Catalytic activity/Vol] 34 U/L Normal 16 [facility] Comment on above: Order Comment: Speci men Type: BLOOD SPECIMEN Ordering Facility: [facility] Address: [address] [address] Performed By: #### 2 4323-8, 3040-3 #### [facility] CLIA [id number] [address] Urinalysis complete panel (U )on 10-18-2022 Bilirubin Ql (U) Negative Normal Negative [facility] Comment on above: Order Comment: Speci men Type: URINE SPECIMEN Ordering Facility: [facility] Address: [address] [address] Performed By: #### 2 4356-8 #### [facility] CLIA [id number] [address] [place] Clarity (Unsp spec) Clear Normal Clear [facility] Comment on above: Order Comment: Speci men Type: URINE SPECIMEN Ordering Facility: [facility] Address: [address] [address] Performed By: #### 2 4356-8 #### [facility] CLIA [id number] [address] Color (U) Light Yellow Normal yellow [facility] Comment on above: Order Comment: Speci men Type: URINE SPECIMEN Ordering Facility: [facility] Address: [address] [address] Performed By: #### 2 4356-8 #### [facility] CLIA [id number] [address] Epithelial cells LM.HPF (Urine sed) [#/Area] Few Normal [facility] Comment on above: Order Comment: Speci men Type: URINE SPECIMEN Ordering Facility: [facility] Address: [address] [address] Performed By: #### 2 4356-8 #### [facility] CLIA [id number] [address] [place] Glucose Test strip (U) [Mass/Vol] Negative Normal Trace, Negative [facility] Comment on above: Order Comment: Speci men Type: URINE SPECIMEN Ordering Facility: [facility] Address: [address] [place] [address] Performed By: #### 2 4356-8 #### [facility] CLIA [id number] [address] Hemoglobin Ql (U) Negative Normal Negative, Trace [facility] Comment on above: Order Comment: Speci men Type: URINE SPECIMEN Ordering Facility: [facility] Address: [address] [place] [address] Performed By: #### 2 4356-8 #### [facility] CLIA [id number] [address] Ketones Ql (U) Negative Normal Negative, Trace [facility] Comment on above: Order Comment: Speci men Type: URINE SPECIMEN Ordering Facility: [facility] Address: [address] [address] Performed By: #### 2 4356-8 #### [facility] CLIA [id number] [address] Leukocyte esterase Test strip Ql (U) Negative Normal Negative, 25 Patito/uL [facility] Comment on above: Order Comment: Speci men Type: URINE SPECIMEN Ordering Facility: [facility] Address: [address] [address] Performed By: #### 2 4356-8 #### [facility] CLIA [id number] [address] [place] Nitrite Ql (U) Negative Normal Negative [facility] Comment on above: Order Comment: Speci men Type: URINE SPECIMEN Ordering Facility: [facility] Address: [address] [place] [address] Performed By: #### 2 4356-8 #### [facility] CLIA [id number] [address] [place] pH (U) 7.5 [pH] Normal 5.0-8.0 [facility] Comment on above: Order Comment: Speci men Type: URINE SPECIMEN Ordering Facility: [facility] Address: [address] [place] [address] Performed By: #### 2 4356-8 #### [facility] CLIA [id number] [address] Protein (U) [Mass/Vol] Negative Normal Trace, Negative [facility] Comment on above: Order Comment: Speci men Type: URINE SPECIMEN Ordering Facility: [facility] Address: [address] [place] [address] Performed By: #### 2 4356-8 #### [facility] CLIA [id number] [address] RBC LM.HPF (Urine sed) [#/Area] 0-3 /HPF Normal 0-3 /HPF [facility] Comment on above: Order Comment: Speci men Type: URINE SPECIMEN Ordering Facility: [facility] Address: [address] [place] [address] Performed By: #### 2 4356-8 #### [facility] CLIA [id number] [address] [place] Specific gravity (U) [Rel density] 1.008 Normal 1.005-1.030 [facility] Comment on above: Order Comment: Speci men Type: URINE SPECIMEN Ordering Facility: [facility] Address: [address] [place] [address] Performed By: #### 2 4356-8 #### [facility] CLIA [id number] [address] Urobilinogen Ql (U) Normal Normal Negative [facility] Comment on above: Order Comment: Speci men Type: URINE SPECIMEN Ordering Facility: [facility] Address: [address] [place] [address] Performed By: #### 2 4356-8 #### [facility] CLIA [id number] [address] [place] WBC LM.HPF (Urine sed) [#/Area] 0-5 /HPF Normal 0-5 /HPF [facility] Comment on above: Order Comment: Speci men Type: URINE SPECIMEN Ordering Facility: [facility] Address: [address] [place] [address] Performed By: #### 2 4356-8 #### [facility] CLIA [id number] [address] [place] Urinalysis w/ Microon 2022 Bilirubin, SemiQt,Ur Negative Normal NEG [facility] Comment on above: Performed By: #### U AMIC #### [facility] [address] [place] [address] Dental Assistant Instructor: Baldomero Espinoza MD Blood, Urine Negative Normal NEG [facility] Comment on above: Performed By: #### U AMIC #### [facility] [address] [place] [address] Dental Assistant Instructor: Baldomero Espinoza MD Clarity (U) Clear Normal CLEAR [facility] Comment on above: Performed By: #### U AMIC #### [facility] [address] [place] [address] Dental Assistant Instructor: Baldomero Espinoza MD Color (U) Yellow Normal YEL [facility] Comment on above: Performed By: #### U AMIC #### [facility] [address] [place] [address] Dental Assistant Instructor: Baldomero Espinoza MD Epithelial cells LM Ql (Urine sed) None Normal 0-25 [facility] Comment on above: Performed By: #### U AMIC #### [facility] [address] [place], [place] [id number] Dental Assistant Instructor: Baldomero Espinoza MD Glucose Ql (U) Negative Normal NEG [facility] Comment on above: Performed By: #### U AMIC #### [facility] [address] [place], [place] [id number] Dental Assistant Instructor: Baldomero Espinoza MD Ketones Ql (U) Negative Normal NEG [facility] Comment on above: Performed By: #### U AMIC #### [facility] [address] [place] [address] [place], [place] [id number] Dental Assistant Instructor: Baldomero Espinoza MD Leukocyte esterase Test strip Ql (U) Negative Normal NEG [facility] Comment on above: Performed By: #### U AMIC #### [facility] [address] [place] [address] [place] [address] Dental Assistant Instructor: Baldomero Espinoza MD Nitrite,Ur Negative Normal NEG [facility] Comment on above: Performed By: #### U AMIC #### [facility] [address] [place] [address] [place], [place] [id number] Dental Assistant Instructor: Baldomero Espinoza MD PH,Ur 6.5 Normal 5.0-9.0 [facility] Comment on above: Performed By: #### U AMIC #### [facility] [address] [place], [place] [address]83 Dental Assistant Instructor: Baldomero Espinoza MD Protein Ql (U) Negative Normal NEG [facility] Comment on above: Performed By: #### U AMIC #### [facility] [address] [place], [place] [id number] Dental Assistant Instructor: Baldomero Espinoza MD Spec. [place],Ur 1.020 Normal 1.010-1.020 [facility] Comment on above: Performed By: #### U AMIC #### [facility] [address] [place] [address] Dental Assistant Instructor: Baldomero Espinoza MD Urine RBC's None Normal 0-2 [facility] Comment on above: Performed By: #### U AMIC #### [facility] [address] [place] [id number] Dental Assistant Instructor: Baldomero Espinoza MD Urine WBC's None Normal 0-5 [facility] Comment on above: Performed By: #### U AMIC #### [facility] [address] [place] [address] Dental Assistant Instructor: Baldomero Espinoza MD Urobilinogen,Ur Normal Normal 0.0-1.[address] [facility] Comment on above: Performed By: #### U AMIC #### [facility] [address] [place], [place] [address] Dental Assistant Instructor: Baldomero Espinoza MD Formson 10-08-2022 Forms [id number] 26#1.00CD:127 Normal [facility] Ambulatory Visit Summaryon 0 10-07-2022 Ambulatory Visit Summary Normal [address] [place] [address]- \.br\ Medications\.br\ What How Much When Why [...] Metabolic syndrome\.br\ PCOS- polycystic ovary syndrome\.br\ \.br\ [facility] Family Medicine Office/Clini c Noteon 10-07-2022 Family Medicine Office/Clinic Note Normal [facility] Comment on above: Result Comment: Elec tronically Signed By: Jaquan Paula\.br\Date and Time Signed: 10/07/22 16:37 EDT Operative Reporton Operative Report [id number] 4C#1.00CD:127 Normal [facility] CNOVon 09-18-2022 CNOV Normal [facility] CNPNon 09-04-2022 CNPN Normal [facility] C3 COMPLEMENT Don 06-13-19 Complement C3 [Mass/Vol] 140 mg/dL 86 - 166 mg/dL [facility] C4 COMPLEMENT BLDon 06-13-19 Complement C4 [Mass/Vol] 25 mg/dL 13 - 46 mg/dL [facility] CBC W Auto Differential pane l (Bld)on 06-12-2022 Basophils (Bld) [#/Vol] 0.04 10*3/uL <0.11 k/uL [facility] Basophils/100 WBC (Bld) 0.9 % [facility] Differential cell count method Nom (Bld) Auto [facility] Eosinophils (Bld) [#/Vol] 0.09 10*3/uL <0.46 k/uL [facility] Eosinophils/100 WBC (Bld) 2.0 % [facility] Erythrocyte distribution width (RBC) [Ratio] 12.8 % 11.5 - 15.0 % [facility] Hematocrit (Bld) [Volume fraction] 40.5 % 36.0 - 46.0 % [facility] Hemoglobin (Bld) [Mass/Vol] 13.4 g/dL 11.5 - 15.5 g/dL [facility] Immature granulocytes (Bld) [#/Vol] <0.10 k/uL [facility] Immature granulocytes/100 WBC (Bld) 0.2 % [facility] Lymphocytes (Bld) [#/Vol] 1.73 10*3/uL 1.00 - 4.00 k/uL [facility] Lymphocytes/100 WBC (Bld) 37.9 % [facility] MCH (RBC) [Entitic mass] 30.0 pg 26.0 - 34.0 pg [facility] MCHC (RBC) [Mass/Vol] 33.1 g/dL 30.5 - 36.0 g/dL [facility] MCV (RBC) [Entitic vol] 90.8 fL 80.0 - 100.0 fL [facility] Monocytes (Bld) [#/Vol] 0.23 10*3/uL <0.87 k/uL [facility] Monocytes/100 WBC (Bld) 5.0 % [facility] Neutrophils (Bld) [#/Vol] 2.46 10*3/uL 1.45 - 7.50 k/uL [facility] Neutrophils/100 WBC (Bld) 54.0 % [facility] Nucleated RBC (Bld) [#/Vol] <0.01 k/uL [facility] Nucleated RBC/100 WBC (Bld) [Ratio] 0.0 /100 WBC [facility] Platelet mean volume (Bld) [Entitic vol] 11.3 fL 9.0 - 12.7 fL [facility] Platelets (Bld) [#/Vol] 292 10*3/uL 150 - 400 k/uL [facility] RBC (Bld) [#/Vol] 4.46 10*6/uL 3.90 - 5.20 m/uL [facility] WBC (Bld) [#/Vol] 4.56 10*3/uL 3.70 - 11.00 k/u L [facility] CK CREATINE KINASEon 023 CK [Catalytic activity/Vol] 44 U/L 42 - 196 U/L [facility] Comprehensive metabolic 2000 panelon 06-12-2022 Albumin [Mass/Vol] 4.3 g/dL 3.9 - 4.9 g/dL [facility] ALP [Catalytic activity/Vol] 64 U/L 34 - 123 U/L [facility] ALT [Catalytic activity/Vol] 20 U/L 7 - 38 U/L [facility] Anion gap [Moles/Vol] 10 mmol/L 9 - 18 mmol/L [facility] AST [Catalytic activity/Vol] 33 U/L 13 - 35 U/L [facility] Bilirubin [Mass/Vol] 0.4 mg/dL 0.2 - 1.3 mg/dL [facility] Calcium [Mass/Vol] 9.3 mg/dL 8.5 - 10.2 mg/dL [facility] Chloride [Moles/Vol] 106 mmol/L High 97 - 105 mmol/L [facility] CO2 [Moles/Vol] 23 mmol/L 22 - 30 mmol/L [facility] Creatinine [Mass/Vol] 0.76 mg/dL 0.58 - 0.96 mg/dL [facility] Estimated Glomerular Filtration Rate 106 mL/min/1.73m >=60 mL/min/1.73m [facility] Glucose [Mass/Vol] 79 mg/dL 74 - 99 mg/dL [facility] Potassium [Moles/Vol] 4.0 mmol/L 3.7 - 5.1 mmol/L [facility] Protein [Mass/Vol] 6.9 g/dL 6.3 - 8.0 g/dL [facility] Sodium [Moles/Vol] 139 mmol/L 136 - 144 mmol/L [facility] Urea nitrogen [Mass/Vol] 9 mg/dL 7 - 21 mg/dL [facility] FERRITIN BLDon 06-12-2022 Ferritin [Mass/Vol] 36.6 ng/mL 14.7 - 205.1 ng/ mL [facility] FOLATE SERUMon 06-12-2022 Folate [Mass/Vol] 6.8 ng/mL >4.7 ng/mL [facility] Iron and Iron binding capaci ty panelon 06-12-2022 Iron [Mass/Vol] 100 ug/dL 41 - 186 ug/dL [facility] Iron binding capacity [Mass/Vol] 332 ug/dL 232 - 386 ug/dL [facility] Iron/TIBC [Molar ratio] 30.1 % 15.0 - 57.0 % [facility] MAGNESIUM BLDon 06-12-2022 Magnesium [Mass/Vol] 2.2 mg/dL 1.7 - 2.3 mg/dL [facility] RHEUMATOID FACTOR BLon 06-12 Rheumatoid factor Qn <16 IU/mL [facility] VITAMIN B12 BLOODon 06-13-19 Cobalamin (Vitamin B12) [Mass/Vol] 854 pg/mL 232 - 1,245 pg/mL [facility] CHEMISTRYOrdered By: SYSTEM SYSTEM on 06-10-2022 [...] rate/Area] 100 mL/min/1.73 m2 Normal >=59mL/min/1.73 m2 [facility] Chem S Glucose [Mass/Vol] 83 mg/dL Normal 55 - 199 mg/dL [facility] Potassium [Moles/Vol] 3.4 mmol/L Low 3.5 - 5.3 mmol/L [facility] Sodium [Moles/Vol] 135 mmol/L Normal 135 - 145 mmol/L [facility] Remisol Troponin I.cardiac [Mass/Vol] pg/mL Low 10.10 - 27.10 pg/mL [facility] Urea nitrogen [Mass/Vol] 12 mg/dL Normal 5 - 21 mg/dL [facility] Urea nitrogen/Creatinine [Mass ratio] 15 mg/mg [...] 3.4 E9/L Normal 2.0 - 7.5 E9/L [facility] HEMATOLOGYOrdered By: Edilberto Meng on 06-10-2022 Erythrocyte distribution width (RBC) [Ratio] 13.9 % Normal 10.9 - 14.2 % [facility] Hematocrit (Bld) [Volume fraction] 40.9 % Normal 34.0 - 46.0 % [facility] Hemoglobin (Bld) [Mass/Vol] 13.9 g/dL Normal 12.0 - 16.0 gm/dL [facility] MCH (RBC) [Entitic mass] 30.6 pg Normal 27.0 - 34.0 pg [facility] MCHC (RBC) [Mass/Vol] 34.0 g/dL Normal 31.4 - 36.0 gm/dL [facility] MCV (RBC) [Entitic vol] 89.9 fL Normal 80.0 - 100.0 fL [facility] Platelet mean volume (Bld) [Entitic vol] 9.1 fL Normal 6.4 - 10.8 fL [facility] Platelets (Bld) [#/Vol] 249.0 E9/L Normal 150.0 - 500.0 E9/L [facility] RBC (Bld) [#/Vol] 4.6 E12/L Normal 4.3 - 5.9 E12/L [facility] Sed Rate Automated 8 mm/h Normal 0 - 34 mm/hr [facility] WBC corrected for nucl RBC Auto (Bld) [#/Vol] 5.8 E9/L Normal 4.0 - 11.0 E9/L [facility] AMYLASEon 06-09-2022 Amylase [Catalytic activity/Vol] 41 U/L Normal 25-115 [facility] Comment on above: Performed By: #### G RUBIN, LIPID #### [facility] [address] [place] [address] [address] Stephan Tavares CBC AUTO DIFFon 06-09-2022 BASO # 0.0 103/ul Normal 0.0-0.1 [facility] Comment on above: Performed By: #### G RUBIN, LIPID #### [facility] [address] [address] [address] Stephan Tavares Basophils/100 WBC (Bld) 0.7 % Normal 0.2-2.0 [facility] Comment on above: Performed By: #### G RUBIN, LIPID #### [facility] [address] [place] [address] Dr. Stephan Tavares EO # 0.1 103/ul Normal 0.0-0.7 [facility] Comment on above: Performed By: #### G RUBIN, LIPID #### [facility] [address] [place] [address] Dr. Stephan Tavares Eosinophils/100 WBC (Bld) 1.5 % Normal 0.9-7.0 [facility] Comment on above: Performed By: #### G RUBIN, LIPID #### [facility] [address] [place] [address] Dr. Stephan Tavares Erythrocyte distribution width (RBC) [Ratio] 13.1 % Normal 11.0-15.0 [facility] Comment on above: Performed By: #### G RUBIN, LIPID #### [facility] [address] [place] [address] Dr. Stephan Tavares Hematocrit (Bld) [Volume fraction] 43.2 % Normal 36.0-48.0 [facility] Comment on above: Performed By: #### G RUBIN, LIPID #### [facility] [address] [place] [address] Dr. Stephan Tavares Hemoglobin (Bld) [Mass/Vol] 14.6 g/dL Normal 12.0-16.0 [facility] Comment on above: Performed By: #### G RUBIN, LIPID #### [facility] [address] [place] [address] Dr. Stephan Tavares IG # 0.01 10e3/ul Normal 0.00-0.03 [facility] Comment on above: Performed By: #### G RUBIN, LIPID #### [facility] [address] [place] [address] Dr. Stephan Tavares IG % 0.2 % Normal 0.0-0.5 [facility] Comment on above: Performed By: #### G RUBIN, LIPID #### [facility] [address] [address] [address] Stephan Tavares LYMPH # 2.1 103/ul Normal 1.2-3.8 [facility] Comment on above: Performed By: #### G RUBIN, LIPID #### [facility] [address] [address] [address] Stephan Tavares Lymphocytes/100 WBC (Bld) 39.1 % Normal 20.5-60.0 [facility] Comment on above: Performed By: #### G RUBIN, LIPID #### [facility] [address] [address] [address] Stephan Tavares MANUAL DIFF REQ NO Normal [facility] Comment on above: Performed By: #### G RUBIN, LIPID #### [facility] [address] [address] [address] Stephan Tavares MCH (RBC) [Entitic mass] 30.2 pg Normal 26.7-34.0 [facility] Comment on above: Performed By: #### G RUBIN, LIPID #### [facility] [address] [address] [address] Stephan Tavares MCHC (RBC) [Mass/Vol] 33.8 g/dL Normal 29.9-35.2 [facility] Comment on above: Performed By: #### G RUBIN, LIPID #### [facility] [address] [address] [address] Stephan Tavares MCV (RBC) [Entitic vol] 89.3 fL Normal 81.0-99.0 [facility] Comment on above: Performed By: #### G RUBIN, LIPID #### [facility] [address] [address] [address] Stephan Tavares MONO # 0.3 103/ul Normal 0.3-0.8 [facility] Comment on above: Performed By: #### G RUBIN, LIPID #### [facility] [address] [address] [address] Stephan Tavares Monocytes/100 WBC (Bld) 5.2 % Normal 1.7-12.0 [facility] Comment on above: Performed By: #### G RUBIN, LIPID #### [facility] [address] [address] [address] Stephan Tavares NEUT # 2.9 103/ul Normal 1.4-6.5 [facility] Comment on above: Performed By: #### G RUBIN, LIPID #### [facility] [address] [address] [address] Stephan Tavares Neutrophils/100 WBC (Bld) 53.3 % Normal 43.0-75.0 [facility] Comment on above: Performed By: #### G RUBIN, LIPID #### [facility] [address] [address] [address] Stephan Tavares Platelet mean volume (Bld) [Entitic vol] 10.9 fL Normal 9.5-13.5 [facility] Comment on above: Performed By: #### G RUBIN, LIPID #### [facility] [address] [place] [address] Dr. Stephan Tavares PLT 271 103/ul Normal 150-450 [facility] Comment on above: Performed By: #### G RUBIN, LIPID #### [facility] [address] [place] [address] Dr. Stephan Tavares RBC 4.84 106/ul Normal 4.20-5.40 [facility] Comment on above: Performed By: #### G RUBIN, LIPID #### [facility] [address] [place] [address] Dr. Stephan Tavares WBC 5.4 103/ul Normal 4.0-11.0 [facility] Comment on above: Performed By: #### G RUBIN, LIPID #### [facility] [address] [place] [address] ABD/PELVIS WO CONon [...] by: ALVERTO PHAM Date: 2022-06-09 16:14 Normal [facility] ER URINE PROFILEon 3 Bilirubin Ql (U) Negative Normal NEGATIVE [facility] Comment on above: Performed By: #### G RUBIN, LIPID #### [facility] [address] [place] [address] Dr. Stephan Tavares Clarity (U) CLEAR Normal CLEAR [facility] Comment on above: Performed By: #### G RUBIN, LIPID #### [facility] [address] [address] [address] Stephan Tavares Color (U) LT. YELLOW Normal YELLOW [facility] Comment on above: Performed By: #### G RUBIN, LIPID #### [facility] [address] [address] [address] Stephan KUMAR A micrscopic examination will be performed if indicated. Normal [facility] Comment on above: Performed By: #### G RUBIN, LIPID #### [facility] [address] [address] [address] Stephan Tavares Glucose Ql (U) Negative Normal NEGATIVE [facility] Comment on above: Performed By: #### G RUBIN, LIPID #### [facility] [address] [address] [address] Stephan Tavares Hemoglobin Ql (U) Negative Normal NEGATIVE [facility] Comment on above: Performed By: #### G RUBIN, LIPID #### [facility] [address] [address] [address] Stephan Tavares Ketones Ql (U) Negative Normal NEGATIVE [facility] Comment on above: Performed By: #### G RUBIN, LIPID #### [facility] [address] [address] [address] Stephan Tavares LEUKOCYTES Negative Normal NEGATIVE [facility] Comment on above: Performed By: #### G RUBIN, LIPID #### [facility] [address] [place] [address] Dr. Stephan Tavares Nitrite Ql (U) Negative Normal NEGATIVE [facility] Comment on above: Performed By: #### G RUBIN, LIPID #### [facility] [address] [address] [address] Stephan Tavares pH (U) 7.5 [pH] Normal 5-9 [facility] Comment on above: Performed By: #### G RUBIN, LIPID #### [facility] [address] [address] [address] Stephan Tavares SPEC GRAVITY 1.015 Normal 1.005-<=1.025 [facility] Comment on above: Performed By: #### G RUBIN, LIPID #### [facility] [address] [address] [address] Stephan Tavares UA PROTEIN Negative Normal NEGATIVE/ TRACE [facility] Comment on above: Performed By: #### G RUBIN, LIPID #### [facility] [address] [address] [address] Stephan Tavares UR MICRO IND NOT INDICATED Normal [facility] Comment on above: Performed By: #### G RUBIN, LIPID #### [facility] [address] [place] [address] Dr. Stephan Tavares Urobilinogen Qn (U) 0.2 {Munir'U}/dL Normal 0.2 - 1. 0 [facility] Comment on above: Performed By: #### G RUBIN, LIPID #### [facility] [address] [place] [address] Dr. Stephan Tavares LIPASEon 06-09-2022 Lipase [Catalytic activity/Vol] 120.0 U/L Normal 73.0-393.0 [facility] Comment on above: Performed By: #### G RUBIN, LIPID #### [facility] [address] [place] [address] Dr. Stephan Tavares PROF 14(COMP METB)on 023 Albumin [Mass/Vol] 4.4 g/dL Normal 3.4-5.0 [facility] Comment on above: Performed By: #### G RUBIN, LIPID #### [facility] [address] [place] [address] Dr. Stephan Tavares Albumin/Globulin [Mass ratio] 1.1 {ratio} Normal [facility] Comment on above: Performed By: #### G RUBIN, LIPID #### [facility] [address] [place] [address] Dr. Stephan Tavares ALP [Catalytic activity/Vol] 74 U/L Normal 46-116 [facility] Comment on above: Performed By: #### G RUBIN, LIPID #### [facility] [address] [place] [address] Dr. Stephan Tavares ALT [Catalytic activity/Vol] 40 U/L Normal 14-59 [facility] Comment on above: Performed By: #### G RUBIN, LIPID #### [facility] [address] [place] [address] Dr. Stephan Tavares Anion gap [Moles/Vol] 16.5 mmol/L Normal [facility] Comment on above: Performed By: #### G RUBIN, LIPID #### [facility] [address] [place] [address] Dr. Stephan Tavares AST [Catalytic activity/Vol] 45 U/L Critically high 15-37 [facility] Comment on above: Performed By: #### G RUBIN, LIPID #### [facility] [address] [place] [address] Dr. Stephan Tavares Bilirubin [Mass/Vol] 0.5 mg/dL Normal 0.2-1.0 [facility] Comment on above: Performed By: #### G RUBIN, LIPID #### [facility] [address] [place] [address] Dr. Stephan Tavares Calcium [Mass/Vol] 9.3 mg/dL Normal 8.5-10.1 [facility] Comment on above: Performed By: #### G RUBIN, LIPID #### [facility] [address] [address] [address] Stephan Tavares Chloride [Moles/Vol] 103 mmol/L Normal 98-107 [facility] Comment on above: Performed By: #### G RUBIN, LIPID #### [facility] [address] [place] [address] Dr. Stephan Tavares CO2 [Moles/Vol] 24.9 mmol/L Normal 21.0-32.0 [facility] Comment on above: Performed By: #### G RUBIN, LIPID #### [facility] [address] [place] [address] Dr. Stephan Tavares Creatinine [Mass/Vol] 0.88 mg/dL Normal 0.55-1.02 [facility] Comment on above: Performed By: #### G RUBIN, LIPID #### [facility] [address] [place] [address] Dr. Stephan Tavares EGFR-AF [place] >60 Normal >=60 [facility] Comment on above: Performed By: #### G RUBIN, LIPID #### [facility] [address] [place] [address] Dr. Stephan Tavares EGFR-NON AF [place] >60 Normal >=60 [facility] Comment on above: Performed By: #### G RUBIN, LIPID #### [facility] [address] [place] [address] Dr. Stephan Tavares Globulin (S) [Mass/Vol] 3.9 g/dL Normal [facility] Comment on above: Performed By: #### G RUBIN, LIPID #### [facility] [address] [place] [address] Dr. Stephan Tavares Glucose [Mass/Vol] 79 mg/dL Normal 74-106 [facility] Comment on above: Performed By: #### G RUBIN, LIPID #### [facility] [address] [address] [address] Stephan Tavares Potassium [Moles/Vol] 3.4 mmol/L Critically low 3.5-5.1 [facility] Comment on above: Performed By: #### G RUBIN, LIPID #### [facility] [address] [address] [address] Stephan Tavares Protein [Mass/Vol] 8.3 g/dL Critically high 6.4-8.2 [facility] Comment on above: Performed By: #### G RUBIN, LIPID #### [facility] [address] [address] [address] Stephan Tavares Sodium [Moles/Vol] 141 mmol/L Normal 136-145 [facility] Comment on above: Performed By: #### G RUBIN, LIPID #### [facility] [address] [address] [address] Stephan Tavares Urea nitrogen [Mass/Vol] 10.0 mg/dL Normal 7.0-18.0 [facility] Comment on above: Performed By: #### G RUBIN, LIPID #### [facility] [address] [place] [address] Dr. Stephan Tavares Urea nitrogen/Creatinine [Mass ratio] 11.4 mg/mg Normal [facility] Comment on above: Performed By: #### G RUBIN, LIPID #### [facility] [address] [address] [address] Stephan Tavares US PELVIS TRANSVAGon 023 [...] ALVERTO PHAM Date: 2022-06-09 17:04 Normal [facility] HLA B 27on 05-28-2022 HLA-B27 Negative Normal [facility] Comment on above: Result Comment: HLA- B*27 Negative B27 allele interpretation for all loci based on IMGT/HLA database version 3.44 This test was developed and its performance characteristics determined by [facility]. It has not been cleared or approved by the Food and Drug Administration. [facility] CLIA ID Number [id number] . This test was performed using PCR (Polymerase Chain Reaction)/SSOP (Sequence Specific Oligonucleotide Probes) technique. SBT (Sequence Based Typing) and/or SSP (Sequence Specific Primers) may be used as supplemental methods when necessary. Please contact [facility] Customer Service at if you have any questions. . Director of [facility] Laboratory Dr Tino Sampson, PhD Performed By: #### B MP, MG #### [facility] [address] [place] [address] Dr. Stephan Tavares LYME DISEASE, WESTERN BLOTon 05-27-2022 IgG P18 Ab. Absent [facility] Comment on above: Performed By: #### B MP, MG #### [facility] [address] [place] [address] Dr. Stephan Tavares IgG P23 Ab. Absent [facility] Comment on above: Performed By: #### B MP, MG #### [facility] [address] [place] [address] Dr. Stephan Tavares IgG P28 Ab. Absent [facility] Comment on above: Performed By: #### B MP, MG #### [facility] [address] [place] [address] Dr. Stephan Tavares IgG P30 Ab. Absent [facility] Comment on above: Performed By: #### B MP, MG #### [facility] [address] [place] [address] Dr. Stephan Tavares IgG P39 Ab. Absent [facility] Comment on above: Performed By: #### B MP, MG #### [facility] [address] [place] [address] Dr. Stephan Tavares IgG P41 Ab. Present Abnormal [facility] Comment on above: Performed By: #### B MP, MG #### [facility] [address] [place] [address] Dr. Stephan Tavares IgG P45 Ab. Absent Normal [facility] Comment on above: Performed By: #### B MP, MG #### [facility] [address] [place] [address] Dr. Stephan Tavares IgG P58 Ab. Absent [facility] Comment on above: Performed By: #### B MP, MG #### [facility] [address] [place] [address] Dr. Stephan Tavares IgG P66 Ab. Absent Normal [facility] Comment on above: Performed By: #### B MP, MG #### [facility] [address] [place] [address] Dr. Stephan Tavares IgG P93 Ab. Absent [facility] Comment on above: Performed By: #### B MP, MG #### [facility] [address] [place] [address] Dr. Stephan Tavares IgM P23 Ab. Present Abnormal [facility] Comment on above: Performed By: #### B MP, MG #### [facility] [address] [place] [address] Dr. Stephan Tavares IgM P39 Ab. Absent [facility] Comment on above: Performed By: #### B MP, MG #### [facility] [address] [place] [address] Dr. Stephan Tavares IgM P41 Ab. Present Abnormal [facility] Comment on above: Performed By: #### B MP, MG #### [facility] [address] [place] [address] Dr. Stephan Tavares Lyme IgG WB Interp. Negative Normal [facility] Comment on above: Result Comment: Posi tive: 5 of the following Borrelia-specific bands: 18,23,28,30,39,41,45,58, 66, and 93. Negative: No bands or banding patterns which do not meet positive criteria. Performed By: #### B TOMMIE, MG #### [facility] [address] [address] [address] Stephan Tavares Lyme IgM WB Interp. Positive Abnormal [facility] Comment on above: Result Comment: Note [...] are those recommended by CDC/ASTPHLD. p23=Osp C, x36=mcwgihyae . Note: Sera from individuals with the following may cross react in the Lyme Line Blot assays: other spirochetal diseases (periodontal disease, leptospirosis, relapsing fever, yaws, and pinta); connective autoimmune (Rheumatoid Arthritis and Systemic Lupus Erythematosus and also individuals with Antinuclear Antibody); other infections ([place] Spotted Fever; Prabhakar-Rangel Virus, and Cytomegalovirus). . . Please Note: Lyme immunoblot alone is not recommended for the diagnosis of Lyme disease. Current guidelines recommend the use of a two-tiered approach to Lyme serology testing to improve the sensitivity and specificity of testing. [facility] Lyme Disease Serology with Reflex to aid in the diagnosis of Lyme Disease. Performed By: #### B TOMMIE, MG #### [facility] [address], [place] [address] Dr. Stephan Tavares MISAEL EIA W/REFLEX 9 BIOMARKER Son 05-25-2022 MISAEL Direct Negative Normal Negative [facility] Comment on above: Performed By: #### A NARF9 #### [facility] [address], [place] [address] Dr. Stephan Tavares SLE PROFILE Aon 05-25-2022 Anti-DNA (DS) Ab Qn 2 IU/mL Normal 0-9 [facility] Comment on above: Result Comment: Nega tive <5 Equivocal 5 - 9 Positive >9 Performed By: #### S RONALDO #### [facility] [address] [place] [address] Dr. Stephan Tavares Antichromatin Antibodies <0.2 Normal 0.0-0.9 [facility] Comment on above: Performed By: #### S RONALDO #### [facility] [address] [place] [address] Dr. Stephan Tavares RA Latex Turbid. <10.0 Normal <14.0 [facility] Comment on above: Performed By: #### S RONALDO #### [facility] [address] [place] [address] Dr. Stephan Tavares F[employer] Antibodies 0.3 AI Normal 0.0-0.[address] [facility] Comment on above: Performed By: #### S RONALDO #### [facility] [address] [place] [address] Dr. Stephan Tavares Sjogrrodolfo'nancy Anti-SS-A <0.2 Normal 0.0-0.9 [facility] Comment on above: Performed By: #### S RONALDO #### [facility] [address] [place] [address] Dr. Stephan Tavares Sjogren's Anti-SS-B <0.2 Normal 0.0-0.9 [facility] Comment on above: Performed By: #### S RONALDO #### [facility] [address] [place] [address] Dr. Stephan Tavares Mc Antibodies <0.2 Normal 0.0-0.9 [facility] Comment on above: Performed By: #### S RONALDO #### [facility] [address] [place] [address] Dr. Stephan Tavares CBC AUTO DIFFon 05-22-2022 BASO # 0.0 103/ul Normal 0.0-0.1 [facility] Comment on above: Performed By: #### C BC #### [facility] [address] [place] [address] Dr. Stephan Tavares Basophils/100 WBC (Bld) 1.0 % Normal 0.2-2.0 [facility] Comment on above: Performed By: #### C BC #### [facility] [address] [place] [address] Dr. Stephan Tavares EO # 0.1 103/ul Normal 0.0-0.7 [facility] Comment on above: Performed By: #### C BC #### [facility] [address] [place] [address] Dr. Stephan Tavares Eosinophils/100 WBC (Bld) 1.3 % Normal 0.9-7.0 [facility] Comment on above: Performed By: #### C BC #### [facility] [address] [place] [address] Dr. Stephan Tavares Erythrocyte distribution width (RBC) [Ratio] 13.3 % Normal 11.0-15.0 [facility] Comment on above: Performed By: #### C BC #### [facility] [address] [place] [address] Dr. Stephan Tavares Hematocrit (Bld) [Volume fraction] 36.7 % Normal 36.0-48.0 [facility] Comment on above: Performed By: #### C BC #### [facility] [address] [place] [address] Dr. Stephan Tavares Hemoglobin (Bld) [Mass/Vol] 12.6 g/dL Normal 12.0-16.0 [facility] Comment on above: Performed By: #### C BC #### [facility] [address] [place] [address] Dr. Stephan Tavares IG # 0.00 10e3/ul Normal 0.00-0.03 [facility] Comment on above: Performed By: #### C BC #### [facility] [address] [place] [address] Dr. Stephan Tavares IG % 0.0 % Normal 0.0-0.5 [facility] Comment on above: Performed By: #### C BC #### [facility] [address] [place] [address] Dr. Stephan Tavares LYMPH # 1.2 103/ul Normal 1.2-3.8 [facility] Comment on above: Performed By: #### C BC #### [facility] [address] [place] [address] Dr. Stephan Tavares Lymphocytes/100 WBC (Bld) 30.9 % Normal 20.5-60.0 [facility] Comment on above: Performed By: #### C BC #### [facility] [address] [place] [address] Dr. Stephan Tavares MANUAL DIFF REQ NO Normal [facility] Comment on above: Performed By: #### C BC #### [facility] [address] [place] [address] Dr. Stephan Tavares MCH (RBC) [Entitic mass] 30.6 pg Normal 26.7-34.0 [facility] Comment on above: Performed By: #### C BC #### [facility] [address] [place] [address] Dr. Stephan Tavares MCHC (RBC) [Mass/Vol] 34.3 g/dL Normal 29.9-35.2 [facility] Comment on above: Performed By: #### C BC #### [facility] [address] [place] [address] Dr. Stephan Tavares MCV (RBC) [Entitic vol] 89.1 fL Normal 81.0-99.0 [facility] Comment on above: Performed By: #### C BC #### [facility] [address] [place] [address] Dr. Stephan Tavares MONO # 0.2 103/ul Critically low 0.3-0.[address] [facility] Comment on above: Performed By: #### C BC #### [facility] [address] [place] [address] Dr. Stephan Tavares Monocytes/100 WBC (Bld) 5.9 % Normal 1.7-12.0 [facility] Comment on above: Performed By: #### C BC #### [facility] [address] [place] [address] Dr. Stephan Tavares NEUT # 2.4 103/ul Normal 1.4-6.5 [facility] Comment on above: Performed By: #### C BC #### [facility] [address] [place] [address] Dr. Stephan Tavares Neutrophils/100 WBC (Bld) 60.9 % Normal 43.0-75.0 [facility] Comment on above: Performed By: #### C BC #### [facility] [address] [address] [address] Stephan Tavares Platelet mean volume (Bld) [Entitic vol] 10.9 fL Normal 9.5-13.5 [facility] Comment on above: Performed By: #### C BC #### [facility] [address] [address] [address] Stephan Tavares PLT 250 103/ul Normal 150-450 [facility] Comment on above: Performed By: #### C BC #### [facility] [address] [address] [address] Stephan Tavares RBC 4.12 106/ul Critically low 4.20-5.40 [facility] Comment on above: Performed By: #### C BC #### [facility] [address] [place] [address] Dr. Stephan Tavares WBC 3.9 103/ul Critically low 4.0-11.[address] [facility] Comment on above: Performed By: #### C BC #### [facility] [address] [place] [address] Dr. Stephan Tavares CRPon 05-22-2022 CRP [Mass/Vol] mg/L Normal <=1.[address] [facility] Comment on above: Performed By: #### G RUBIN, LIPID #### [facility] [address] [place] [address] Dr. Stephan Tavares SED RATE WESTERGRENon 2022 SED RATE 4 mm/hr Normal <=20 [facility] Comment on above: Performed By: #### S EDR #### [facility] [address] [place] [address] Dr. Stephan Tavares URIC ACID SERUMon 05-22-2022 Urate [Mass/Vol] 4.5 mg/dL Normal 2.6-6.0 [facility] Comment on above: Performed By: #### G RUBIN, LIPID #### [facility] [address] [place] [address] Dr. Stephan Tavares EGD - THERAPEUTIC, EUS, OR T UBE INTERVENTIONSon 03-06-2022 [facility] US PELVIS AND TRANSVAGon US PELVIS [...] BALDOMERO MARCELO Date: 2022-03-03 16:24 Normal [facility] CBC AUTO DIFFon 02-17-2022 BASO # 0.0 103/ul Normal 0.0-0.1 [facility] Comment on above: Performed By: #### G RUBIN, LIPID #### [facility] [address] [place] [address] Dr. Stephan Tavares Basophils/100 WBC (Bld) 0.8 % Normal 0.2-2.0 [facility] Comment on above: Performed By: #### G RUBIN, LIPID #### [facility] [address] [place] [address] Dr. Stephan Tavares EO # 0.1 103/ul Normal 0.0-0.7 [facility] Comment on above: Performed By: #### G RUBIN, LIPID #### [facility] [address] [place] [address] Dr. Stephan Tavares Eosinophils/100 WBC (Bld) 2.0 % Normal 0.9-7.0 [facility] Comment on above: Performed By: #### G RUBIN, LIPID #### [facility] [address] [place] [address] Dr. Stephan Tavares Erythrocyte distribution width (RBC) [Ratio] 13.2 % Normal 11.0-15.0 [facility] Comment on above: Performed By: #### G RUBIN, LIPID #### [facility] [address] [place] [address] Dr. Stephan Tavares Hematocrit (Bld) [Volume fraction] 36.2 % Normal 36.0-48.0 [facility] Comment on above: Performed By: #### G RUBIN, LIPID #### [facility] [address] [place] [address] Dr. Stephan Tavares Hemoglobin (Bld) [Mass/Vol] 12.6 g/dL Normal 12.0-16.0 [facility] Comment on above: Performed By: #### G RUBIN, LIPID #### [facility] [address] [address] [address] Stephan Tavares IG # 0.00 10e3/ul Normal 0.00-0.03 [facility] Comment on above: Performed By: #### G RUBIN, LIPID #### [facility] [address] [place] [address] Dr. Stephan Tavares IG % 0.0 % Normal 0.0-0.5 [facility] Comment on above: Performed By: #### G RUBIN, LIPID #### [facility] [address] [place] [address] Dr. Stephan Tavares LYMPH # 2.3 103/ul Normal 1.2-3.8 [facility] Comment on above: Performed By: #### G RUBIN, LIPID #### [facility] [address] [place] [address] Dr. Stephan Tavares Lymphocytes/100 WBC (Bld) 46.3 % Normal 20.5-60.0 [facility] Comment on above: Performed By: #### G RUBIN, LIPID #### [facility] [address] [place] [address] Dr. Stephan Tavares MANUAL DIFF REQ NO Normal [facility] Comment on above: Performed By: #### G RUBIN, LIPID #### [facility] [address] [place] [address] Dr. Stephan Tavares MCH (RBC) [Entitic mass] 29.2 pg Normal 26.7-34.0 [facility] Comment on above: Performed By: #### G RUBIN, LIPID #### [facility] [address] [place] [address] Dr. Stephan Tavares MCHC (RBC) [Mass/Vol] 34.8 g/dL Normal 29.9-35.2 [facility] Comment on above: Performed By: #### G RUBIN, LIPID #### [facility] [address] [place] [address] Dr. Stephan Tavares MCV (RBC) [Entitic vol] 84.0 fL Normal 81.0-99.0 [facility] Comment on above: Performed By: #### G RUBIN, LIPID #### [facility] [address] [place] [address] Dr. Stephan Tavares MONO # 0.4 103/ul Normal 0.3-0.8 [facility] Comment on above: Performed By: #### G RUBIN, LIPID #### [facility] [address] [place] [address] Dr. Stephan Tavares Monocytes/100 WBC (Bld) 8.7 % Normal 1.7-12.0 [facility] Comment on above: Performed By: #### G RUBIN, LIPID #### [facility] [address] [place] [address] Dr. Stephan Tavares NEUT # 2.1 103/ul Normal 1.4-6.5 [facility] Comment on above: Performed By: #### G RUBIN, LIPID #### [facility] [address] [place] [address] Dr. Stephan Tavares Neutrophils/100 WBC (Bld) 42.2 % Critically low 43.0-75.0 [facility] Comment on above: Performed By: #### G RUBIN, LIPID #### [facility] [address] [place] [address] Dr. Stephan Tavares Platelet mean volume (Bld) [Entitic vol] 11.1 fL Normal 9.5-13.5 [facility] Comment on above: Performed By: #### G RUBIN, LIPID #### [facility] [address] [place] [address] Dr. Stephan Tavares PLT 228 103/ul Normal 150-450 [facility] Comment on above: Performed By: #### G RUBIN, LIPID #### [facility] [address] [place] [address] Dr. Stephan Tavares RBC 4.31 106/ul Normal 4.20-5.40 [facility] Comment on above: Performed By: #### G RUBIN, LIPID #### [facility] [address] [place] [address] Dr. Stephan Tavares WBC 5.1 103/ul Normal 4.0-11.0 [facility] Comment on above: Performed By: #### G RUBIN, LIPID #### [facility] [address] [place] [address] Dr. Stephan Tavares MAGNESIUMon 02-17-2022 Magnesium [Mass/Vol] 1.8 mg/dL Normal 1.8-2.4 [facility] Comment on above: Performed By: #### B MP, MG #### [facility] [address] [place] [address] Dr. Stephan Tavares PROF CHEM 8 (BAS METB)on Anion gap [Moles/Vol] 16.1 mmol/L Normal [facility] Comment on above: Performed By: #### B MP, MG #### [facility] [address] [place] [address] Dr. Stephan Tavares Calcium [Mass/Vol] 8.7 mg/dL Normal 8.5-10.1 [facility] Comment on above: Performed By: #### B MP, MG #### [facility] [address] [place] [address] Dr. Stephan Tavares Chloride [Moles/Vol] 104 mmol/L Normal 98-107 [facility] Comment on above: Performed By: #### B MP, MG #### [facility] [address] [place] [address] Dr. Stephan Tavares CO2 [Moles/Vol] 22.0 mmol/L Normal 21.0-32.0 [facility] Comment on above: Performed By: #### B MP, MG #### [facility] [address] [place] [address] Dr. Stephan Tavares Creatinine [Mass/Vol] 0.74 mg/dL Normal 0.55-1.02 [facility] Comment on above: Performed By: #### B MP, MG #### [facility] [address] [address] [address] Stephan Tavares EGFR-AF [place] >60 Normal >=60 [facility] Comment on above: Performed By: #### B MP, MG #### [facility] [address] [address] [address] Stephan Tavares EGFR-NON AF [place] >60 Normal >=60 [facility] Comment on above: Performed By: #### B MP, MG #### [facility] [address] [address] [address] Stephan Tavares Glucose [Mass/Vol] 88 mg/dL Normal 74-106 [facility] Comment on above: Performed By: #### B MP, MG #### [facility] [address] [place] [address] Dr. Stephan Tavares Potassium [Moles/Vol] 4.1 mmol/L Normal 3.5-5.1 [facility] Comment on above: Result Comment: spec imen hemolysed. result could be spurious. suggest repeat. Performed By: #### B MP, MG #### [facility] [address] [address] [address] Stephan Tavares Sodium [Moles/Vol] 138 mmol/L Normal 136-145 [facility] Comment on above: Performed By: #### B MP, MG #### [facility] [address] [place] [address] Dr. Stephan Tavares Urea nitrogen [Mass/Vol] 12.0 mg/dL Normal 7.0-18.0 [facility] Comment on above: Performed By: #### B MP, MG #### [facility] [address] [address] [address] Stephan Tavares Urea nitrogen/Creatinine [Mass ratio] 16.2 mg/mg Normal [facility] Comment on above: Performed By: #### B MP, MG #### [facility] [address] [address] [address] Stephan Tavares Basic metabolic 2000 panelon 01-28-2022 Anion gap [Moles/Vol] 10 mmol/L 9 - 18 mmol/L [facility] Calcium [Mass/Vol] 9.3 mg/dL 8.5 - 10.2 mg/dL [facility] Chloride [Moles/Vol] 105 mmol/L 97 - 105 mmol/L [facility] CO2 [Moles/Vol] 22 mmol/L 22 - 30 mmol/L [facility] Creatinine [Mass/Vol] 0.68 mg/dL 0.58 - 0.96 mg/dL [facility] Estimated Glomerular Filtration Rate 119 mL/min/1.73m >=60 mL/min/1.73m [facility] Glucose [Mass/Vol] 77 mg/dL 74 - 99 mg/dL [facility] Potassium [Moles/Vol] 4.3 mmol/L 3.7 - 5.1 mmol/L [facility] Sodium [Moles/Vol] 137 mmol/L 136 - 144 mmol/L [facility] Urea nitrogen [Mass/Vol] 9 mg/dL 7 - 21 mg/dL [facility] CBC panel Auto (Bld)on 01-28 Erythrocyte distribution width (RBC) [Ratio] 13.3 % 11.5 - 15.0 % [facility] Hematocrit (Bld) [Volume fraction] 42.9 % 36.0 - 46.0 % [facility] Hemoglobin (Bld) [Mass/Vol] 14.6 g/dL 11.5 - 15.5 g/dL [facility] MCH (RBC) [Entitic mass] 29.8 pg 26.0 - 34.0 pg [facility] MCHC (RBC) [Mass/Vol] 34.0 g/dL 30.5 - 36.0 g/dL [facility] MCV (RBC) [Entitic vol] 87.6 fL 80.0 - 100.0 fL [facility] Nucleated RBC (Bld) [#/Vol] <0.01 k/uL [facility] Platelet mean volume (Bld) [Entitic vol] 11.4 fL 9.0 - 12.7 fL [facility] Platelets (Bld) [#/Vol] 247 10*3/uL 150 - 400 k/uL [facility] RBC (Bld) [#/Vol] 4.90 10*6/uL 3.90 - 5.20 m/uL [facility] WBC (Bld) [#/Vol] 4.05 10*3/uL 3.70 - 11.00 k/u L [facility] EKGon 01-28-2022 Atrial Rate 61 BPM [facility] Calculated P Exchange 76 degrees [facility] Calculated R Exchange 73 degrees [facility] Calculated T Exchange 57 degrees [facility] P-R Interval 144 ms [facility] QRS Duration 86 ms [facility] QT Interval 424 ms [facility] QTC Calculation (Bazett) 426 ms [facility] Ventricular Rate 61 BPM [facility] TYPE AND SCREEN,30 DAYon ABO O [facility] HIstorical Ab Scr Status Negative [facility] Rh Nom (Bld) Positive [facility] EGD - THERAPEUTIC, EUS, OR T UBE INTERVENTIONSon 12-25-2021 [facility] METANEPHRINES PLASMA FREEon 11-01-2021 Metanephrine, Pl <10.0 Normal 0.0-88.0 [facility] Comment on above: Performed By: #### G RUBIN, LIPID #### [facility] [address] [place] [address] Dr. Stephan Tavares Normetanephrine, Pl 19.4 pg/mL Normal 0.0-210.1 [facility] Comment on above: Performed By: #### G RUBIN, LIPID #### [facility] [address] [place] [address] Dr. Stephan Tavares CORTISOLon 10-28-2021 Cortisol 4.6 ug/dL Normal [facility] Comment on above: Result Comment: Wesley isol AM 6.2 - 19.4 Cortisol PM 2.3 - 11.9 Performed By: #### C ORTISO #### [facility] [address] [address] [address] Stephan Tavares CBC AUTO DIFFon 10-27-2021 BASO # 0.0 103/ul Normal 0.0-0.1 [facility] Comment on above: Performed By: #### G RUBIN, LIPID #### [facility] [address] [place] [address] Dr. Stephan Tavares Basophils/100 WBC (Bld) 0.5 % Normal 0.2-2.0 [facility] Comment on above: Performed By: #### G RUBIN, LIPID #### [facility] [address] [place] [address] Dr. Stephan Tavares EO # 0.0 103/ul Normal 0.0-0.7 [facility] Comment on above: Performed By: #### G RUBIN, LIPID #### [facility] [address] [place] [address] Dr. Stephan Tavares Eosinophils/100 WBC (Bld) 0.5 % Critically low 0.9-7.0 [facility] Comment on above: Performed By: #### G RUBIN, LIPID #### [facility] [address] [place] [address] Dr. Stephan Tavares Erythrocyte distribution width (RBC) [Ratio] 12.8 % Normal 11.0-15.0 [facility] Comment on above: Performed By: #### G RUBIN, LIPID #### [facility] [address] [place] [address] Dr. Stephan Tavares Hematocrit (Bld) [Volume fraction] 37.5 % Normal 36.0-48.0 [facility] Comment on above: Performed By: #### G RUBIN, LIPID #### [facility] [address] [place] [address] Dr. Stephan Tavares Hemoglobin (Bld) [Mass/Vol] 12.9 g/dL Normal 12.0-16.0 [facility] Comment on above: Performed By: #### G RUBIN, LIPID #### [facility] [address] [place] [address] Dr. Stephan Tavarse IG # 0.01 10e3/ul Normal 0.00-0.03 [facility] Comment on above: Performed By: #### G RUBIN, LIPID #### [facility] [address] [place] [address] Dr. Stephan Tavares IG % 0.2 % Normal 0.0-0.5 [facility] Comment on above: Performed By: #### G RUBIN, LIPID #### [facility] [address] [place] [address] Dr. Stephan Tavares LYMPH # 1.9 103/ul Normal 1.2-3.8 [facility] Comment on above: Performed By: #### G RUBIN, LIPID #### [facility] [address] [place] [address] Dr. Stephan Tavares Lymphocytes/100 WBC (Bld) 34.6 % Normal 20.5-60.0 [facility] Comment on above: Performed By: #### G RUBIN, LIPID #### [facility] [address] [place] [address] Dr. Stephan Tavares MANUAL DIFF REQ NO Normal [facility] Comment on above: Performed By: #### G RUBIN, LIPID #### [facility] [address] [place] [address] Dr. Stephan Tavares MCH (RBC) [Entitic mass] 30.3 pg Normal 26.7-34.0 [facility] Comment on above: Performed By: #### G RUBIN, LIPID #### [facility] [address] [place] [address] Dr. Stephan Tavares MCHC (RBC) [Mass/Vol] 34.4 g/dL Normal 29.9-35.2 [facility] Comment on above: Performed By: #### G RUBIN, LIPID #### [facility] [address] [place] [address] Dr. Stephan Tavares MCV (RBC) [Entitic vol] 88.0 fL Normal 81.0-99.0 [facility] Comment on above: Performed By: #### G RUBIN, LIPID #### [facility] [address] [place] [address] Dr. Stephan Tavares MONO # 0.4 103/ul Normal 0.3-0.8 [facility] Comment on above: Performed By: #### G RUBIN, LIPID #### [facility] [address] [place] [address] Dr. Stephan Tavares Monocytes/100 WBC (Bld) 6.6 % Normal 1.7-12.0 [facility] Comment on above: Performed By: #### G RUBIN, LIPID #### [facility] [address] [place] [address] Dr. Stephan Tavares NEUT # 3.2 103/ul Normal 1.4-6.5 [facility] Comment on above: Performed By: #### G RUBIN, LIPID #### [facility] [address] [address] [address] Stephan Tavares Neutrophils/100 WBC (Bld) 57.6 % Normal 43.0-75.0 [facility] Comment on above: Performed By: #### G RUBIN, LIPID #### [facility] [address] [address] [address] Stephan Tavares Platelet mean volume (Bld) [Entitic vol] 10.6 fL Normal 9.5-13.5 [facility] Comment on above: Performed By: #### G RUBIN, LIPID #### [facility] [address] [address] [address] Stephan Tavares PLT 249 103/ul Normal 150-450 [facility] Comment on above: Performed By: #### G RUBIN, LIPID #### [facility] [address] [address] [address] Stephan Tavares RBC 4.26 106/ul Normal 4.20-5.40 [facility] Comment on above: Performed By: #### G RUBIN, LIPID #### [facility] [address] [address] [address] Stephan Tavares WBC 5.6 103/ul Normal 4.0-11.0 [facility] Comment on above: Performed By: #### G RUBIN, LIPID #### [facility] [address] [address] [address] Stephan Tavares FREE T3on 10-27-2021 FREE T3 3.25 pg/mlL Normal 2.18-3.98 [facility] Comment on above: Performed By: #### G RUBIN, LIPID #### [facility] [address] [address] [address] Stephan Tavares FREE T4on 10-27-2021 Free T4 [Mass/Vol] 1.45 ng/dL Normal 0.76-1.46 [facility] Comment on above: Performed By: #### G RUBIN, LIPID #### [facility] [address] [address] [address] Stephan Tavares PROF CHEM 8 (BAS METB)on Anion gap [Moles/Vol] 13.1 mmol/L Normal [facility] Comment on above: Performed By: #### T JENI FT3, BMP #### [facility] [address] [address] [address] Stephan Tavares Calcium [Mass/Vol] 8.7 mg/dL Normal 8.5-10.1 [facility] Comment on above: Performed By: #### T JENI, FT3, BMP #### [facility] [address] [place] [address] Dr. Stephan Tavares Chloride [Moles/Vol] 104 mmol/L Normal 98-107 [facility] Comment on above: Performed By: #### T JENI FT3, BMP #### [facility] [address] [place] [address] Dr. Stephan Tavares CO2 [Moles/Vol] 25.3 mmol/L Normal 21.0-32.0 [facility] Comment on above: Performed By: #### T JENI, FT3, BMP #### [facility] [address] [place] [address] Dr. Stephan Tavares Creatinine [Mass/Vol] 0.69 mg/dL Normal 0.55-1.02 [facility] Comment on above: Performed By: #### T JENI, FT3, BMP #### [facility] [address] [place] [address] Dr. Stephan Tavares EGFR-AF [place]OREAN >60 Normal >=60 [facility] Comment on above: Performed By: #### T JENI, FT3, BMP #### [facility] [address] [place] [address] Dr. Stephan Tavares EGFR-NON AF [place]ORE[place] >60 Normal >=60 [facility] Comment on above: Performed By: #### T JENI, FT3, BMP #### [facility] [address] [place] [address] Dr. Stephan Tavares Glucose [Mass/Vol] 87 mg/dL Normal 74-106 [facility] Comment on above: Performed By: #### T JENI, FT3, BMP #### [facility] [address] [address] [address] Stephan Tavares Potassium [Moles/Vol] 3.4 mmol/L Critically low 3.5-5.1 [facility] Comment on above: Performed By: #### T SH, FT3, BMP #### [facility] [address] [address] [address] Stephan Tavares Sodium [Moles/Vol] 139 mmol/L Normal 136-145 [facility] Comment on above: Performed By: #### T SH, FT3, BMP #### [facility] [address] [address] [address] Stephan Tavares Urea nitrogen [Mass/Vol] 9.0 mg/dL Normal 7.0-18.0 [facility] Comment on above: Performed By: #### T SH, FT3, BMP #### [facility] [address] [place] [address] Dr. Stephan Tavares Urea nitrogen/Creatinine [Mass ratio] 13.0 mg/mg Normal [facility] Comment on above: Performed By: #### T SH, FT3, BMP #### [facility] [address] [place] [address] Dr. Stephan Tavares TSHon 10-27-2021 TSH Qn m[IU]/L Critically low 0.358-3.740 [facility] Comment on above: Performed By: #### G RUBIN, LIPID #### [facility] [address] [place] [address] SINUSES WO CONon [...] by: ALVERTO PHAM Date: 2021-10-06 06:19 Normal [facility] Dental Nerve Blockon 022 Pablo Atwood DO 08/30/2021 4:20 AM Dental Nerve Block Date/Time: 08/30/2021 4:19 AM Performed by: Pablo Atwood DO Authorized by: Pablo Atwood DO Consent: Consent obtained: Verbal Consent given by: Patient Risks, benefits, and alternatives were discussed: yes [place] protocol: Patient identity confirmed: Verbally with patient Indications: Indications: dental pain Location: Block type: Posterior superior alveolar Laterality: Left Procedure details: Syringe type: Controlled syringe Needle gauge: 27 G Anesthetic injected: Bupivacaine 0.5% WITH epi Post-procedure details: Outcome: Anesthesia achieved Procedure completion: Tolerated well, no immediate complications [facility] [employer] Work Phone: [facility] [employer] Phone: GLUCOSE BLOODon 08-21-2021 Glucose [Mass/Vol] 79 mg/dL Normal 74-106 [facility] Comment on above: Performed By: #### G RUBIN, LIPID #### [facility] [address] [place] [address] Dr. Stephan Tavares LIPID PROFILEon 08-21-2021 CHOL-HDL RATIO NORM SEE BELOW Normal [facility] Comment on above: Result Comment: 3.3 - 4.4 LOW RISK 4.4 - 7.1 AVERAGE RISK 7.1 - 11.0 MODERATE RISK >11.0 HIGH RISK Performed By: #### G RUBIN, LIPID #### [facility] [address] [address] [address] Stephan Tavares Cholesterol [Mass/Vol] 163 mg/dL Normal <=200 [facility] Comment on above: Performed By: #### G RUBIN, LIPID #### [facility] [address] [address] [address] Stephan Tavares Cholesterol in HDL [Mass/Vol] 71 mg/dL Critically high 40-60 [facility] Comment on above: Performed By: #### G RUBIN, LIPID #### [facility] [address] [address] [address] Stephan Tavares Cholesterol in LDL [Mass/Vol] 67.8 mg/dL Normal [facility] Comment on above: Performed By: #### G RUBIN, LIPID #### [facility] [address] [address] [address] Stephan Tavares Cholesterol.total/C holesterol in HDL [Mass ratio] 2.3 {ratio} Normal [facility] Comment on above: Performed By: #### G RUBIN, LIPID #### [facility] [address] [address] [address] Stephan Tavares HDL NORMAL > or = 60 mg/dl - LOW CARDIOVASCULAR RISK <40 mg/dl - HIGH CARDIOVASCULAR RISK Normal [facility] Comment on above: Performed By: #### G RUBIN, LIPID #### [facility] [address] [address] [address] Stephan Tavares LDL CALC NORMAL SEE BELOW Normal [facility] Comment on above: Result Comment: <100 mg/dl OPTIMAL 100 - 129 mg/dl NEAR OR ABOVE OPTIMAL 130 - 159 mg/dl BORDERLINE HIGH 160 - 189 mg/dl HIGH >190 mg/dl VERY HIGH Performed By: #### G RUBIN, LIPID #### [facility] [address] [address] [address] Stephan Tavares Triglyceride [Mass/Vol] 121 mg/dL Normal <=150 [facility] Comment on above: Performed By: #### G RUBIN, LIPID #### [facility] [address] [address] [address] Stephan Tavares VLDL CALC 24.2 mg/dL Normal [facility] Comment on above: Performed By: #### G RUBIN, LIPID #### [facility] [address] [address] [address] Stephan Tavares US SINGLE QUAD RT [...] by: ALVERTO PHAM Date: 2021-08-21 17:24 Normal [facility] XR SINUSES 3 VIEWS OR GREATE [...] ALVERTO PHAM Date: 2021-08-20 13:05 Normal [facility] Glucose - FINGER STICKon Glucose [Mass/Vol] 84 mg/dL [employer] Other VAGINITIS/VAGINOSIS DNA PROB Ryder 08-01-2021 Alea species Positive Abnormal Negative [facility] Comment on above: Performed By: #### G RUBIN, LIPID #### [facility] [address] [id number] [address] Stephan Tavares Gardnerella vaginalis Negative Normal Negative [facility] Comment on above: Performed By: #### G RUBIN, LIPID #### [facility] [address], [place] [address] Dr. Stephan Tavares Trichomonas vaginalis Negative Normal Negative [facility] Comment on above: Performed By: #### G RUBIN, LIPID #### [facility] [address], [place] [address] Dr. Stephan Tavares APTTon 07-27-2021 aPTT Coag (Bld) [Time] 30.9 s [facility] Comment on above: IV Heparin Therapy Range: 62.0-94.0 CBC with Auto Differentialon 07-27-2021 Absolute Eos # 0.06 [facility] Absolute Immature Granulocyte <0.03 [facility] Absolute Lymph # [address] [facility] Absolute [place] # 0.27 [facility] Basophils (Bld) [#/Vol] 0.04 10*3/uL [facility] Basophils/100 WBC (Bld) 1 % 0 - 2 % [facility] Eosinophils/100 WBC (Bld) 1 % 1 - 4 % [facility] Hematocrit (Bld) [Volume fraction] 38.8 % 36.3 - 47.1 % [facility] Hemoglobin (Bld) [Mass/Vol] 12.7 g/dL 11.9 - 15.1 g/dL [facility] Immature granulocytes/100 WBC (Bld) 0 % 0 [facility] Interpretation and review of laboratory results Abnormal [facility] Lymphocytes/100 WBC (Bld) 36 % 24 - 43 % [facility] MCH (RBC) [Entitic mass] 28.9 pg 25.2 - 33.5 pg [facility] MCHC (RBC) [Mass/Vol] 32.7 g/dL 28.4 - 34.8 g/dL [facility] MCV (RBC) [Entitic vol] 88.4 fL 82.6 - 102.9 fL [facility] Monocytes/100 WBC (Bld) 6 % 3 - 12 % [facility] NRBC Automated 0.0 0.0 per 100 WBC [facility] Platelet distribution width (Bld) [Ratio] 14.5 % High 11.8 - 14.4 % [facility] Platelet mean volume (Bld) [Entitic vol] 10.8 fL 8.1 - 13.5 fL [facility] Platelets (Bld) [#/Vol] 251 10*3/uL [facility] RBC (Bld) [#/Vol] 4.39 10*6/uL 3.95 - 5.11 m/uL [facility] Segmented neutrophils/100 WBC (Bld) 56 % 36 - 65 % [facility] Segs Absolute 2.33 [facility] WBC (Bld) [#/Vol] 4.2 10*3/uL [facility] ABDOMEN PELVIS W IV CONTR AST [...] is no acute osseous abnormality. PN RIS CONSOLIDATED Devon Moura MD - 07/27/2021 EXAMINATION: [...] IMPRESSION: No acute abdominal or pelvic abnormality. [employer] Phone: Radiology Study observation (narrative) [employer] Phone: CT ABDOMEN PELVIS W IV CONTR AST Additional Contrast? NoneOrdered By: Devon Moura on 07-27-2021 [employer] Phone: Comprehensive Metabolic Pane l w/ Reflex to MGon 07-27-2021 Albumin [Mass/Vol] 4.7 g/dL 3.5 - 5.2 g/dL [facility] Albumin/Globulin [Mass ratio] 1.8 {ratio} [facility] ALP (Bld) [Catalytic activity/Vol] 62 U/L 35 - 104 U/L [facility] ALT [Catalytic activity/Vol] 14 U/L 5 - 33 U/L [facility] Anion gap [Moles/Vol] 11 mmol/L 9 - 17 mmol/L [facility] AST [Catalytic activity/Vol] 18 U/L <32 [facility] Bilirubin [Mass/Vol] 0.52 mg/dL 0.3 - 1.2 mg/dL [facility] Calcium [Mass/Vol] 9.5 mg/dL 8.6 - 10.4 mg/dL [facility] Chloride [Moles/Vol] 101 mmol/L 98 - 107 mmol/L [facility] CO2 [Moles/Vol] 25 mmol/L 20 - 31 mmol/L [facility] Creatinine [Mass/Vol] 0.76 mg/dL 0.50 - 0.90 mg/dL [facility] Free PSA/Total PSA [Mass fraction] 7.3 g/dL 6.4 - 8.3 g/dL [facility] GFR >60 >60 mL/min [facility] GFR Non- >60 >60 mL/min [facility] Glucose [Mass/Vol] 86 mg/dL 70 - 99 mg/dL [facility] Interpretation and review of laboratory results Abnormal [facility] Potassium [Moles/Vol] 4.0 mmol/L 3.7 - 5.3 mmol/L [facility] Sodium [Moles/Vol] 137 mmol/L 135 - 144 mmol/L [facility] Urea nitrogen (BldV) [Mass/Vol] 16 mg/dL 6 - 20 mg/dL [facility] Urea nitrogen/Creatinine (Bld) [Mass ratio] 21 High [facility] Laboratory - Chemistry and C hemistry - challengeon 07-27-2021 GFR/1.73 sq M.predicted MDRD (S/P/Bld) [Vol rate/Area] [facility] Comment on above: Average GFR for 30-3 9 years old: 107 mL/min/1.73sq m Chronic Kidney Disease: <60 mL/min/1.73sq m Kidney failure: <15 mL/min/1.73sq m eGFR calculated using average adult body mass. Additional eGFR calculator available at: http://www.LiquidText/multiple_crcl_2012.htm Stage 1: Some kidney damage normal GFR Stage 2: Mild kidney damage GFR 60-89 Stage 3: Moderate kidney damage GFR 30-59 Stage 4: Severe kidney damage GFR 15-29 Stage 5: Severe kidney damage GFR <15 ESRD - chronic treatment by dialysis or transplant Lactic Acidon 07-27-2021 Lactate [Moles/Vol] 1 mmol/L 0.5 - 2.2 mmol/L [facility] [employer] [facility] Sudhir Srivast[facility] [employer] Lipaseon 07-27-2021 Lipase [Catalytic activity/Vol] 49 U/L 13 - 60 U/L [facility] Asuum Microscopic Urinalysison - [email or web address] [facility] Epithelial Cells UA 0 TO 2 [facility] [employer] RBC, UA 0 TO 2 [facility] [employer] WBC, UA 0 TO 2 [facility] [employer] No Panel Informationon 07-27 [facility] [employer] Protime-INRon 07-27-2021 INR Coag (Bld) [Relative time] 1.1 {INR} [facility] Sudhir Srivast[facility] [employer] Comment on above: Non-therapeutic Range: INR = 0.9-1.2 Therapeutic Range: Moderate Anticoagulant Intensity: INR = 2.0-3.0 High Anticoagulant Intensity: INR = 2.5-3.5 PT Coag (PPP) [Time] 14.2 s [facility] [employer] Urinalysis with Reflex to Cu ltureon 07-27-2021 Bilirubin Urine Negative NEGATIVE [facility] As[employer] Color, UA Yellow Yellow [facility] [employer] Glucose, Ur Negative NEGATIVE [facility] [employer] Ketones Ql (U) Negative NEGATIVE [facility] Leukocyte esterase Test strip Ql (U) Negative NEGATIVE [facility] [employer] Nitrite, Urine Negative NEGATIVE [facility] pH, UA 7.5 [facility] Protein, UA Negative NEGATIVE [facility] Specific [place], UA 1.010 [facility] Turbidity UA Clear Clear [facility] Urine Hgb Negative NEGATIVE [facility] Urobilinogen, Urine Normal Normal DIEGO Barber [facility] XR CHEST PORTABLEon 07-28-[address] [facility] CONSOLIDATED EXAMINATION: ONE XRAY VIEW OF [...] The osseous structures are without acute process. [facility] CONSOLIDATED Goldie Grande MD - 07/27/2021 [...] without acute process. IMPRESSION: No acute process. [employer] Work Phone: Radiology Study observation (narrative) [employer] Work Phone: XR CHEST PORTABLEOrdered By: Goldie Grande on 07-27-[address] [facility] Work Phone: XR HIP GENERAL 3V PELV/AP/LA T RIGHTon 06-18-2021 [facility] XR chest 2V*on 03-31-2021 XR chest 2V* [facility] [employer] Other XR chest 2V* [facility] [employer] Other XR chest 2V* [address] [place] [address] [employer] Other XR chest 2V* [place] [address] [place] [email or web address] Other XR chest 2V* XRay Report [employer] Other XR chest 2V* Signed [employer] Other XR chest 2V* Patient: Abbey Garcia MR#: [id number] [employer] Other XR chest 2V* : 1990 Acct:[id number] [employer] Other XR chest 2V* Age/Sex: 30 / F ADM Date: 03/31/21 [employer] Other XR chest 2V* Loc: XDC Room: Type: [facility] [employer] Other XR chest 2V* Attending Dr: Shanna June [facility] [employer] Other XR chest 2V* Ordering Provider: SHANNA JUNE [facility] [employer] Other XR chest 2V* Date of Service: 03/31/21 [employer] Other XR chest 2V* XR/XR chest 2V*: SOB (shortness of breath) [employer] Other XR chest 2V* Copies to: SHANNA JUNE [facility] [employer] Other XR chest 2V* PA AND LATERAL CHEST: [employer] Other XR chest 2V* CLINICAL HISTORY: Wheezing and shortness of breath [employer] Other XR chest 2V* COMPARISON: 03/05/2020 [employer] Other XR chest 2V* There is no focal parenchymal consolidation, effusion or pneumothorax. The cardiac, hilar and [employer] Other XR chest 2V* mediastinal silhouettes are within normal limits. There is no vascular congestion. The [employer] Other XR chest 2V* visualized bony thorax is intact. [employer] Other XR chest 2V* XR/XR chest 2V* [employer] Other XR chest 2V* IMPRESSION: [employer] Other XR chest 2V* NO ACUTE CARDIOPULMONARY ABNORMALITY. [employer] Other XR chest 2V* Impression dictated by: Maricruz Hutchinson M.D.03/31/2021 11:32 AM [employer] Other XR chest 2V* Dictation Location: [facility]- [employer] Other XR chest 2V* Transcribed By: SULEMA 03/31/21 113 [employer] Other XR chest 2V* Dictated By: Maricruz Hutchinson MD 03/31/21 [facility] [employer] Other XR chest 2V* Signed By: [employer] Other XR chest 2V* 03/31/21 [facility] [employer] Other Urinalysis - AUTOMATEDon Appearance (U) clear [employer] Other Bilirubin Ql (U) Negative [employer] Other Color (U) yellow [employer] Other Glucose Ql (U) Negative [employer] Other Hemoglobin Ql (U) Negative [employer] Other Ketones Ql (U) Negative [employer] Other Leukocyte esterase Test strip Ql (U) Negative [employer] Other Nitrite Ql (U) Negative [employer] Other pH (U) 7.0 [pH] [employer] Other Protein Ql (U) Negative [employer] Other Specific gravity (U) [Rel density] 1.015 [employer] Other Urobilinogen (U) [Mass/Vol] 0.2 mg/dL [employer] Other XR FINGER RIGHT (MIN 2 VIEWS )Ordered By: Vicky Olmedo on 12-14-2020 No acute osseous abnormality. [employer] Phone: EXAMINATION: THREE XRAY VIEWS OF THE RIGHT FINGERS 12/14/2020 3:26 pm COMPARISON: None. HISTORY: ORDERING SYSTEM PROVIDED HISTORY: shut right thumb in car door TECHNOLOGIST PROVIDED HISTORY: shut right thumb in car door FINDINGS: There is no evidence of acute fracture. There is normal alignment. No acute joint abnormality. No focal osseous lesion. No focal soft tissue abnormality. [employer] Phone: Yusuf, Mhpn Incoming Radiant Results From [employer] - 12/14/2020 3:33 PM EDT EXAMINATION: THREE [...] tissue abnormality. IMPRESSION: No acute osseous abnormality. [employer] Phone: [employer] Phone: CBC, EDIF, PLATELETOrdered B y: Juanito Laird on 07-02-2020 ABSOLUTE BASOPHIL COUNT 0.0 10*3/uL 0.0 - 0.2 10*3/uL [employer] [facility] Basophils/100 WBC (Bld) 0.6 % 0.0 - 2.0 % [facility] Differential cell count method Nom (Bld) AUTO DIFF % [facility] Eosinophils (Bld) [#/Vol] 0.10 10*3/uL 0.0 - 0.7 10*3/uL [facility] Eosinophils/100 WBC (Bld) 1.3 % 0.0 - 11.0 % [facility] [facility] Erythrocyte distribution width (RBC) [Ratio] 14.1 % 11.5 - 14.5 % [facility] Hematocrit (Bld) [Volume fraction] 36.2 % 36.0 - 48.0 % [facility] Hemoglobin (Bld) [Mass/Vol] 12.1 g/dL [facility] Lymphocytes (Bld) [#/Vol] 1.70 10*3/uL 1.2 - 3.4 10*3/uL [facility] Lymphocytes/100 WBC (Bld) 23.4 % 20.0 - 55.0 % [facility] MCH (RBC) [Entitic mass] 28.1 pg 26.0 - 35.0 PG [facility] MCHC (RBC) [Mass/Vol] 33.4 g/dL [facility] MCV (RBC) [Entitic vol] 84.1 fL [facility] Monocytes (Bld) [#/Vol] 0.5 10*3/uL 0.0 - 0.7 10*3/uL [facility] Monocytes/100 WBC (Bld) 6.4 % 0.0 - 10.0 % [facility] Neutrophils (Bld) [#/Vol] 5.0 10*3/uL 1.4 - 6.5 10*3/uL [facility] Neutrophils/100 WBC (Bld) 68.3 % 37.0 - 75.0 % [facility] Platelet mean volume (Bld) [Entitic vol] 8.9 fL [facility] Platelets (Bld) [#/Vol] 295 10*3/uL 130.0 - 400.0 10*3/uL [facility] RBC (Bld) [#/Vol] 4.31 10*6/uL 4.0 - 5.4 10*6/u L [facility] WBC (Bld) [#/Vol] 7.3 10*3/uL 3.6 - 11.0 10*3/u L [facility] COMPREHENSIVE METABOLIC PANE LOrdered By: Juanito Laird on 07-02-2020 Albumin [Mass/Vol] 4.1 G/dl 3.5 - 5.0 G/dl [facility] Albumin/Globulin [Mass ratio] 1.3 {ratio} [facility] ALP [Catalytic activity/Vol] 52 U/L [facility] ALT [Catalytic activity/Vol] 16 U/L [facility] AST [Catalytic activity/Vol] 29 U/L [facility] Bilirubin [Mass/Vol] 0.5 mg/dL [facility] Calcium [Mass/Vol] 9.2 mg/dL [facility] Chloride [Moles/Vol] 102 mmol/L [facility] CO2 [Moles/Vol] 22 mmol/L [facility] Creatinine [Mass/Vol] 0.59 mg/dL [facility] GFR COMMENT Average GFR for 30-39 years old = 109. [facility] Comment on above: Chronic Kidney disea se, GFR = <60. Kidney failure, GFR = <15. The GFR estimate is not adjusted for extreme body surface area or acute process, nor has it been validated for women or ethnic groups other than and . GFR/1.73 sq M.predicted among blacks MDRD (S/P/Bld) [Vol rate/Area] mL/min/{1.73_m2} ml/min/1.73sq.m [facility] GFR/1.73 sq M.predicted among non-blacks MDRD (S/P/Bld) [Vol rate/Area] mL/min/{1.73_m2} ml/min/1.73sq.m [facility] Glucose post fast [Mass/Vol] 84 mg/dL [facility] Comment on above: NORMAL <100 mg/dL PREDIABETES 101-126 mg/dL DIABETES 126 mg/dL or higher Interpretation and review of laboratory results Abnormal [facility] Potassium [Moles/Vol] 4.1 mmol/L [facility] Protein [Mass/Vol] 7.3 g/dL [facility] Sodium [Moles/Vol] 134 mmol/L Low [facility] Urea nitrogen [Mass/Vol] 15 mg/dL [facility] CT ABDOMEN/PELVIS WITHOUT CO NTRASTOrdered By: Juanito Laird on 07-02-2020 IMPRESSION: CT abdomen and CT pelvis studies demonstrate findings compatible with hepatic cysts as described, similar to prior study. Finding is compatible with complex right adnexal cyst as noted. Correlate for mild gastroenteritis. [facility] EXAMINATION: CT ABDOMEN/PELVIS WITHOUT CONTRAST HISTORY: Abdominal [...] bowel content. Bony structures are grossly intact. [facility] User, Interfaces - 07/02/2020 2:22 PM EDT [...] cyst as noted. Correlate for mild gastroenteritis. [facility] HCG ( test) Ql (U)O rdered By: Vaughn Ceja on 07-02-2020 [facility] HCG QUALITATIVE, URINEOrdere d By: Vaughn Ceja on 07-02-2020 HCG ( test) Ql (U) Negative NEGATIVE [facility] LACTATE, BLOODOrdered By: Catherine Laird on 07-02-2020 Lactate [Moles/Vol] 1.0 mmol/L [facility] LIPASEOrdered By: Juanito rosen on 07-02-2020 Lipase [Catalytic activity/Vol] 32 U/L 23 - 300 U/L [facility] No Panel InformationOrdered By: Juanito Laird on 07-02-2020 [facility] PROTIME-INROrdered By: Gautam Laird on 07-02-2020 INR Coag (PPP) [Relative time] 0.95 {INR} [facility] Comment on above: 2.0-3.0 THERAPEUTIC RANGE 2.5-3.5 MECHANICAL VALVE RANGE PT Coag (PPP) [Time] 12.9 s [facility] TYPE AND SCREEN - POSSIBLE T RANSFUSIONOrdered By: Juanito Laird on 07-02-2020 ABO and Rh group Nom (Bld ) Positive [facility] ARM BAND NUMBER [id number] [facility] Blood group antibody screen Ql Negative [facility] EXPIRATION DATE 07/05/2020,2359 [facility] URINALYSIS, MACROOrdered By: Vaughn Ceja on 07-02-2020 Bilirubin Ql (U) Negative NEGATIVE [facility] Clarity (U) SLIGHTLY CLOUDY Abnormal CLEAR [facility] Color (U) PINK Abnormal YELLOW [facility] Glucose Test strip (U) [Mass/Vol] Negative NEGATIVE mg/dl [facility] Hemoglobin Ql (U) LARGE Abnormal NEGATIVE [facility] Interpretation and review of laboratory results Abnormal [facility] Ketones (U) [Mass/Vol] Negative NEGATIVE mg/dl [facility] Leukocyte esterase Test strip Ql (U) TRACE Abnormal NEGATIVE [facility] Nitrite Ql (U) Negative NEGATIVE [facility] pH (U) 5.5 [pH] [facility] Protein Ql (U) 100 mg/dl Abnormal NEGATIVE [facility] Specific gravity (U) [Rel density] <1.005 Low [facility] Urobilinogen (U) [Mass/Vol] 0.2 mg/dL [facility] URINE MICROSCOPICOrdered By: Vaughn Ceja on 07-02-2020 Bacteria LM.HPF (Urine sed) [#/Area] TRACE Abnormal NEGATIVE [facility] Casts LM.LPF (Urine sed) [#/Area] NONE NONE /LPF [facility] Crystals LM Nom (Urine sed) NONE NONE [facility] Epithelial cells LM Ql (Urine sed) 10 TO 20 /HPF [facility] Interpretation and review of laboratory results Abnormal [facility] Mucus Ql (Urine sed) Negative NEGATIVE [facility] RBC LM.HPF (Urine sed) [#/Area] TOO NUMEROUS TO COUNT Abnormal NEGATIVE /HPF [facility] Urine sediment comments LM John (Urine sed) POSSIBLY CONTAMINATED SPECIMEN, CULTURE MUST BE ORDERED SEPARATELY IF DEEMED NECESSARY. [facility] WBC LM.HPF (Urine sed) [#/Area] 1 TO 5 NEGATIVE /HPF [facility] US PELVIC WITH TRANSVAGINAL WITH DOPPLEROrdered By: Juanito Laird on 07-02-2020 IMPRESSION: 5.5 cm septated right ovarian cyst No evidence of right ovarian torsion Nonvisualization of the left ovary 4.1 cm myometrial masses, leiomyoma suspected [facility] EXAM: US PELVIC WITH TRANSVAGINAL WITH DOPPLER [...] to patient body habitus and bowel gas [facility] User, Interfaces - 07/02/2020 4:10 PM EDT [...] ovary 4.1 cm myometrial masses, leiomyoma suspected [facility] CBC, EDIF, PLATELETon 2019 ABSOLUTE BASOPHIL COUNT 0.0 10*3/uL 0 - 0.2 10*3/uL [facility] Basophils/100 WBC (Bld) 0.6 % 0 - 2 % [facility] Differential cell count method Nom (Bld) AUTO DIFF % [facility] Eosinophils (Bld) [#/Vol] 0.10 10*3/uL 0 - 0.7 10*3/uL [facility] Eosinophils/100 WBC (Bld) 2.4 % 0 - 11 % [facility] Erythrocyte distribution width (RBC) [Ratio] 15.2 % High 11.5 - 14.5 % [facility] Hematocrit (Bld) [Volume fraction] 39.4 % 36 - 48 % [facility] Hemoglobin (Bld) [Mass/Vol] 12.7 g/dL [facility] Interpretation and review of laboratory results Abnormal [facility] Lymphocytes (Bld) [#/Vol] 1.50 10*3/uL 1.2 - 3.4 10*3/uL [facility] Lymphocytes/100 WBC (Bld) 25.8 % 20 - 55 % [facility] MCH (RBC) [Entitic mass] 28.3 pg 26 - 35 PG [facility] MCHC (RBC) [Mass/Vol] 32.3 g/dL [facility] MCV (RBC) [Entitic vol] 87.6 fL [facility] Monocytes (Bld) [#/Vol] 0.3 10*3/uL 0 - 0.7 10*3/uL [facility] Monocytes/100 WBC (Bld) 5.6 % 0 - 10 % [facility] Neutrophils (Bld) [#/Vol] 3.7 10*3/uL 1.4 - 6.5 10*3/uL [facility] Neutrophils/100 WBC (Bld) 65.6 % 37 - 75 % [facility] Platelet mean volume (Bld) [Entitic vol] 9.2 fL [facility] Platelets (Bld) [#/Vol] 277 10*3/uL 130 - 400 10*3/uL [facility] RBC (Bld) [#/Vol] 4.50 10*6/uL 4 - 5.4 10*6/uL [facility] WBC (Bld) [#/Vol] 5.7 10*3/uL 3.6 - 11 10*3/uL [facility] CHEM 7 (LYTES,BUN,CREA,GLUC) on 01-30-2020 Chloride [Moles/Vol] 106 mmol/L [facility] CO2 [Moles/Vol] 20 mmol/L Low [facility] Creatinine [Mass/Vol] 0.67 mg/dL [facility] GFR/1.73 sq M predicted among blacks MDRD (S/P/Bld) [Vol rate/Area] mL/min/{1.73_m2} ml/min/1.73sq.m [facility] GFR/1.73 sq M predicted among non-blacks MDRD (S/P/Bld) [Vol rate/Area] mL/min/{1.73_m2} ml/min/1.73sq.m [facility] GFR/1.73 sq M predicted among non-blacks MDRD (S/P/Bld) [Vol rate/Area] Average GFR for 30-39 years old = 109. [facility] Comment on above: Chronic Kidney disea se, GFR = <60. Kidney failure, GFR = <15. The GFR estimate is not adjusted for extreme body surface area or acute process, nor has it been validated for women or ethnic groups other than and . Glucose post fast [Mass/Vol] 78 mg/dL [facility] Comment on above: NORMAL <100 mg/dL PREDIABETES 101-126 mg/dL DIABETES 126 mg/dL or higher Interpretation and review of laboratory results Abnormal [facility] Potassium [Moles/Vol] 3.8 mmol/L [facility] Sodium [Moles/Vol] 138 mmol/L [facility] Urea nitrogen [Mass/Vol] 8 mg/dL [facility] CT ABDOMEN/PELVIS WITH CONTR Daljit 01-30-2020 User, [...] unchanged. 4. Prior cholecystectomy and appendectomy. 2 [facility] EXAMINATION: CT ABDOMEN/PELVIS WITH CONTRAST HISTORY: [...] osseous lesions. No compression fracture is identified. [facility] IMPRESSION: 1. Scattered fluid throughout nondilated small bowel may correlate with enteritis or mild ileus pattern. No bowel obstruction. 2. Left ovarian cyst measures 4.7 cm. Pelvic ultrasound could be considered, if clinical symptoms warrant. 3. Hepatic cysts, unchanged. 4. Prior cholecystectomy and appendectomy. 2 [facility] HCG QUALITATIVE, URINEon HCG ( test) Ql (U) Negative NEGATIVE [facility] HEPATIC FUNCTION PANELon Albumin [Mass/Vol] 4.6 g/dL [facility] ALP [Catalytic activity/Vol] 52 U/L [facility] ALT [Catalytic activity/Vol] 18 U/L [facility] AST [Catalytic activity/Vol] 31 U/L [facility] Bilirubin [Mass/Vol] 0.5 mg/dL [facility] Bilirubin.direct [Mass/Vol] 0.0 mg/dL [facility] Protein [Mass/Vol] 7.7 g/dL [facility] LIPASEon 01-30-2020 Lipase [Catalytic activity/Vol] 33 U/L 23 - 300 U/L [facility] URINALYSIS, MACROon 01-30-20 20 Bilirubin Ql (U) Negative NEGATIVE [facility] Clarity (U) CLEAR CLEAR [facility] Color (U) YELLOW YELLOW [facility] Glucose Test strip (U) [Mass/Vol] Negative NEGATIVE mg/dl [facility] Hemoglobin Ql (U) Negative NEGATIVE [facility] Interpretation and review of laboratory results Abnormal [facility] Ketones (U) [Mass/Vol] Negative NEGATIVE mg/dl [facility] Leukocyte esterase Test strip Ql (U) Negative NEGATIVE [facility] Nitrite Ql (U) Negative NEGATIVE [facility] pH (U) 7.5 [pH] High [facility] Protein Ql (U) Negative NEGATIVE mg/dl [facility] Specific gravity (U) [Rel density] 1.015 [facility] Urobilinogen (U) [Mass/Vol] 0.2 [facility] Vital Signs Date Time Vital Sign Value Performing Clinician Facility 08-14-2023 18:07-0400 Diastolic blood pressure 74 mm[Hg] FIRE EXTING[employer]ISHER INSTALLER-C Jaquan Cristhian Work Phone: [facility] 08-14-2023 18:07-0400 Heart rate 66 /min [employer] INST[employer]ER[employer]C Jaquan Cristhian Work Phone: [facility] 08-14-2023 18:07-0400 Respiratory rate 18 /min [employer] INST[employer]ER[employer]C Jaquan Cristhian Work Phone: [facility] 08-14-2023 18:07-0400 SaO2% (BldA) [Mass fraction] 99 % [employer] EX[employer]ER INSTALLER-C Jaquan Cristhian Work Phone: [facility] 08-14-2023 18:07-0400 Systolic blood pressure 110 mm[Hg] FI[employer] EXTINGUISHER INSTALLER-C Jaquan Cristhian Work Phone: [facility] 08-14-2023 16:17-0400 Body height 167.64 cm FIRE EXTINGUISHER INSTALLER-C Jaquan Cristhian Work Phone: [facility] 08-14-2023 16:17-0400 Body temperature 97.5 [degF] [employer] EXTINGUISHER INSTALLER-C Jaquan Cristhian Work Phone: [facility] 08-14-2023 16:17-0400 Body weight 78.92 kg [employer] EXTINGUISHER INSTALLER-C Jaquan Cristhian Work Phone: [facility] 08-09-2023 13:51-0400 Diastolic blood pressure 79 mm[Hg] Vic Ramos MD Work Phone: [facility] 08-09-2023 13:51-0400 Heart rate 76 /min Vic Ramos MD Work Phone: [facility] 08-09-2023 13:51-0400 Systolic blood pressure 113 mm[Hg] Vic Ramos MD Work Phone: [facility] 08-04-2023 08:23-0400 Body mass index (BMI) [Ratio] 29.21 kg/m2 Boogie Murguia MD Work Phone: [facility] 08-04-2023 08:23-0400 Body weight 82.1 kg Boogie Murguia MD Work Phone: [facility] 07-31-2023 13:21-0400 Diastolic blood pressure 55 mm[Hg] FIRE EXTINGUISHER INSTALLER-C Jaquan Cristhian Work Phone: [facility] 07-31-2023 13:21-0400 Heart rate 64 /min [employer] EXTINGU[employer]ER INSTALLER-C Jaquan Cristhian Work Phone: [facility] 07-31-2023 13:21-0400 Respiratory rate 18 /min [employer] EXTING[employer]ER INSTALLER-C Jaquan Cristhian Work Phone: [facility] 07-31-2023 13:21-0400 SaO2% (BldA) [Mass fraction] 97 % [employer] EXTINGU[employer]ER INSTALLER-C Jaquan Cristhian Work Phone: [facility] 07-31-2023 13:21-0400 Systolic blood pressure 104 mm[Hg] FIRE EXTINGUISHER INSTALLER-C Jaquan Cristhian Work Phone: [facility] 07-31-2023 10:21-0400 Body height 168.91 cm FIRE EXTINGUISHER INSTALLER-C Jaquan Cristhian Work Phone: [facility] 07-31-2023 10:21-0400 Body temperature 98.2 [degF] FIRE EXTINGUISHER INSTALLER-C Jaquan Cristhian Work Phone: [facility] 07-31-2023 10:21-0400 Body weight 79 kg FIRE EXTINGUISHER INSTALLER-C Jaquan Cristhian Work Phone: [facility] 07-17-2023 21:45-0400 Body temperature 98.2 [degF] FIRE EXTINGUISHER INSTALLER-C Jaquan Cristhian Work Phone: [facility] 07-17-2023 21:45-0400 Diastolic blood pressure 73 mm[Hg] FIRE EXTINGUISHER INSTALLER-C Jaquan Cristhian Work Phone: [facility] 07-17-2023 21:45-0400 Heart rate 66 /min [employer] EXTINGUISHER INSTALLER-C Jaquan Cristhian Work Phone: [facility] 07-17-2023 21:45-0400 Respiratory rate 16 /min [employer] EXTINGUISHER INSTALLER-C Jaquan Cristhian Work Phone: [facility] 07-17-2023 21:45-0400 SaO2% (BldA) [Mass fraction] 97 % FIRE EXTINGUISHER INSTALLER-C Jaquan Cristhian Work Phone: [facility] 07-17-2023 21:45-0400 Systolic blood pressure 108 mm[Hg] FIRE EXTINGUISHER INSTALLER-C Jaquan Cristhian Work Phone: [facility] 07-17-2023 12:39-0400 Body height 167.64 cm FIRE EXTINGUISHER INSTALLER-C Jaquan Cristhian Work Phone: [facility] 07-17-2023 08:45-0400 Body weight 79.5 kg FIRE EXTINGUISHER INSTALLER-C Jaquan Cristhian Work Phone: [facility] 07-17-2023 07:30-0400 Diastolic blood pressure 53 mm[Hg] FIRE EXTINGUISHER INSTALLER-C Jaquan Cristhian Work Phone: [facility] 07-17-2023 07:30-0400 Heart rate 62 /min FI[employer] EXTINGUISHER INSTALLER-C Jaquan Cristhian Work Phone: [facility] 07-17-2023 07:30-0400 Respiratory rate 16 /min FIRE EXTINGUISHER INSTALLER-C Jaquan Cristhian Work Phone: [facility] 07-17-2023 07:30-0400 SaO2% (BldA) [Mass fraction] 96 % FIRE EXTINGUISHER INSTALLER-C Jaquan Cristhian Work Phone: [facility] 07-17-2023 07:30-0400 Systolic blood pressure 106 mm[Hg] FIRE EXTINGUISHER INSTALLER-C Jaquan Cristhian Work Phone: [facility] 07-16-2023 14:44-0400 Body height 167.64 cm FIRE EXTINGUISHER INSTALLER-C Jaquan Cristhian Work Phone: [facility] 07-16-2023 14:44-0400 Body temperature 97.6 [degF] FIRE EXTINGUISHER INSTALLER-C Jaquan Cristhian Work Phone: [facility] 07-16-2023 14:44-0400 Body weight 79.95 kg FIRE EXTINGUISHER INSTALLER-C Jaquan Cristhian Work Phone: [facility] 07-03-2023 07:00-0400 Body temperature 98.6 [degF] David Wodrich DO Work Phone: [facility] 07-03-2023 07:00-0400 Diastolic blood pressure 57 mm[Hg] David Wodrich DO Work Phone: [facility] 07-03-2023 07:00-0400 Heart rate 105 /min David Wodrich DO Work Phone: [facility] 07-03-2023 07:00-0400 Respiratory rate 18 /min David Wodrich DO Work Phone: [facility] 07-03-2023 07:00-0400 SaO2% (BldA) [Mass fraction] 100 % David Wodrich DO Work Phone: [facility] 07-03-2023 07:00-0400 Systolic blood pressure 99 mm[Hg] David Wodrich DO Work Phone: [facility] 06-29-2023 18:16-0400 Body height 167.6 cm David Wodrich DO Work Phone: [facility] 06-29-2023 18:16-0400 Body mass index (BMI) [Ratio] 27.12 kg/m2 David Wodrich DO Work Phone: [facility] 06-29-2023 18:16-0400 Body weight 76.2 kg David Wodrich DO Work Phone: [facility] 06-22-2023 11:14-0400 Body height 167.6 cm Sherry Magaña MD Work Phone: [facility] 06-22-2023 11:14-0400 Body mass index (BMI) [Ratio] 27.12 kg/m2 Sherry Magaña MD Work Phone: [facility] 06-22-2023 11:14-0400 Body weight 76.2 kg Sherry Magaña MD Work Phone: [facility] 06-18-2023 09:35-0400 Body height 167.6 cm Breanna Stern APRN.STORE CUSTODIAN Work Phone: [facility] 06-18-2023 09:35-0400 Body mass index (BMI) [Ratio] 27.29 kg/m2 Breanna Stern APRN.STORE CUSTODIAN Work Phone: [facility] 06-18-2023 09:35-0400 Body temperature 98.01 [degF] Breanna Stern ETHNOARCHAEOLOGY PROFESSOR.STORE CUSTODIAN Work Phone: [facility] 06-18-2023 09:35-0400 Body weight 76.66 kg Breanna Stern ETHNOARCHAEOLOGY PROFESSOR.STORE CUSTODIAN Work Phone: [facility] 06-18-2023 09:35-0400 Diastolic blood pressure 82 mm[Hg] Breanna Stern ETHNOARCHAEOLOGY PROFESSOR.STORE CUSTODIAN Work Phone: [facility] 06-18-2023 09:35-0400 Heart rate 78 /min Breanna Stern ETHNOARCHAEOLOGY PROFESSOR.STORE CUSTODIAN Work Phone: [facility] 06-18-2023 09:35-0400 SaO2% (BldA) [Mass fraction] 100 % Breanna Stern ETHNOARCHAEOLOGY PROFESSOR.STORE CUSTODIAN Work Phone: [facility] 06-18-2023 09:35-0400 Systolic blood pressure 142 mm[Hg] Breanna Stern ETHNOARCHAEOLOGY PROFESSOR.STORE CUSTODIAN Work Phone: [facility] 05-31-2023 00:53-0400 Diastolic blood pressure 82 mm[Hg] FIRE EXTINGUISHER INSTALLER-C Jaquan Cristhian Work Phone: [facility] 05-31-2023 00:53-0400 Heart rate 51 /min FIRE EXTINGUISHER INSTALLER-C Jaquan Cristhian Work Phone: [facility] 05-31-2023 00:53-0400 Respiratory rate 18 /min FIRE EXTINGUISHER INSTALLER-C Jaquan Cristhian Work Phone: [facility] 05-31-2023 00:53-0400 SaO2% (BldA) [Mass fraction] 91 % FIRE EXTINGUISHER INSTALLER-C Jaquan Cristhian Work Phone: [facility] 05-31-2023 00:53-0400 Systolic blood pressure 142 mm[Hg] FIRE EXTINGUISHER INSTALLER-C Jaquan Cristhian Work Phone: [facility] 05-30-2023 15:25-0400 Body height 167.64 cm FIRE EXTINGUISHER INSTALLER-C Jaquan Cristhian Work Phone: [facility] 05-30-2023 15:25-0400 Body temperature 97.7 [degF] FIRE EXTINGUISHER INSTALLER-C Jaquan Cristhian Work Phone: [facility] 05-30-2023 15:25-0400 Body weight 76.65 kg FIRE EXTINGUISHER INSTALLER-C Jaquan Cristhian Work Phone: [facility] 05-17-2023 16:03-0400 Diastolic blood pressure 82 mm[Hg] [facility] 05-17-2023 16:03-0400 Heart rate 72 /min [facility] 05-17-2023 16:03-0400 Mean blood pressure 95 mm[Hg] [facility] 05-17-2023 16:03-0400 Respiratory rate 17 /min [facility] 05-17-2023 16:03-0400 SaO2% (BldA) [Mass fraction] 100 % [facility] 05-17-2023 16:03-0400 Systolic blood pressure 120 mm[Hg] [facility] 05-17-2023 15:30-0400 Diastolic blood pressure 86 mm[Hg] [facility] 05-17-2023 15:30-0400 Heart rate 71 /min [facility] 05-17-2023 15:30-0400 Mean blood pressure 103 mm[Hg] [facility] 05-17-2023 15:30-0400 Respiratory rate 16 /min [facility] 05-17-2023 15:30-0400 SaO2% (BldA) [Mass fraction] 100 % [facility] 05-17-2023 15:30-0400 Systolic blood pressure 136 mm[Hg] [facility] 05-17-2023 15:00-0400 Diastolic blood pressure 78 mm[Hg] [facility] 05-17-2023 15:00-0400 Heart rate 70 /min [facility] 05-17-2023 15:00-0400 Mean blood pressure 97 mm[Hg] [facility] 05-17-2023 15:00-0400 Respiratory rate 15 /min [facility] 05-17-2023 14:16-0400 Body temperature 97.7 [degF] [facility] 05-17-2023 14:16-0400 Heart rate 74 /min [facility] 05-14-2023 13:06-0400 Hourly Rounding [facility] 05-14-2023 13:06-0400 Promise to Return [facility] 05-14-2023 12:06-0400 Hourly Rounding [facility] 05-14-2023 12:06-0400 Promise to Return [facility] 05-14-2023 11:32-0400 Hourly Rounding [facility] 05-14-2023 11:32-0400 Promise to Return [facility] 05-14-2023 10:08-0400 Heart rate 57 /min [facility] 05-14-2023 10:08-0400 SaO2% (BldA) [Mass fraction] 100 % [facility] 05-14-2023 10:08-0400 Diastolic blood pressure 80 mm[Hg] [facility] 05-14-2023 10:08-0400 Mean blood pressure 93 mm[Hg] [facility] 05-14-2023 10:08-0400 Systolic blood pressure 119 mm[Hg] [facility] 05-14-2023 10:08-0400 Body temperature 97.34 [degF] [facility] 05-14-2023 07:32-0400 Heart rate 57 /min [facility] 05-14-2023 07:32-0400 SaO2% (BldA) [Mass fraction] 100 % [facility] 05-14-2023 07:32-0400 Diastolic blood pressure 66 mm[Hg] [facility] 05-14-2023 07:32-0400 Mean blood pressure 77 mm[Hg] [facility] 05-14-2023 07:32-0400 Systolic blood pressure 100 mm[Hg] [facility] 05-14-2023 07:31-0400 Body temperature 97.34 [degF] [facility] 05-14-2023 05:00-0400 Blood Pressure Location [facility] 05-14-2023 05:00-0400 Diastolic blood pressure 77 mm[Hg] [facility] 05-14-2023 05:00-0400 Mean blood pressure 90 mm[Hg] [facility] 05-14-2023 05:00-0400 Systolic blood pressure 116 mm[Hg] [facility] 05-13-2023 23:38-0400 Heart rate 53 /min [facility] 05-13-2023 23:38-0400 SaO2% (BldA) [Mass fraction] 100 % [facility] 05-13-2023 23:38-0400 Respiratory rate 16 /min [facility] 05-13-2023 23:37-0400 Mean blood pressure 92 mm[Hg] [facility] 05-13-2023 23:00-0400 Blood Pressure Location [facility] 05-13-2023 23:00-0400 Body temperature 97.34 [degF] [facility] 05-13-2023 19:33-0400 Body temperature 97.52 [degF] [facility] 05-13-2023 16:00-0400 Body temperature 98.06 [degF] [facility] 05-13-2023 11:00-0400 Body temperature 98.24 [degF] [facility] 05-12-2023 16:17-0400 Blood Pressure Location [facility] 05-12-2023 16:00-0400 Respiratory rate 20 /min [facility] 05-12-2023 15:55-0400 Mean blood pressure 86 mm[Hg] [facility] 05-12-2023 15:55-0400 Respiratory rate 14 /min [facility] 05-12-2023 15:50-0400 Mean blood pressure 87 mm[Hg] Moncho Paster [facility] 05-12-2023 15:50-0400 Respiratory rate 18 /min Moncho Paster [facility] 05-12-2023 15:36-0400 Body temperature 97.88 [degF] Moncho Paster [facility] 05-12-2023 15:30-0400 Respiratory rate 12 /min Moncho Paster [facility] 05-12-2023 15:25-0400 Respiratory rate 12 /min Moncho Paster [facility] 05-12-2023 13:19-0400 Heart rate 61 /min Moncho Paster [facility] 05-12-2023 09:32-0400 Heart rate 77 /min Moncho Paster [facility] 05-11-2023 16:43-0400 Diastolic blood pressure 67 mm[Hg] Mateusz Jose [facility] 05-11-2023 16:43-0400 Heart rate 75 /min Mateusz Jose [facility] 05-11-2023 16:43-0400 Mean blood pressure 83 mm[Hg] Mateusz Jose [facility] 05-11-2023 16:43-0400 Respiratory rate 18 /min Mateusz Jose [facility] 05-11-2023 16:43-0400 SaO2% (BldA) [Mass fraction] 100 % Mateusz Jose [facility] 05-11-2023 16:43-0400 Systolic blood pressure 115 mm[Hg] Mateusz Jose [facility] 05-11-2023 15:00-0400 Diastolic blood pressure 79 mm[Hg] Mateusz Jose [facility] 05-11-2023 15:00-0400 Heart rate 65 /min Mateusz Jose [facility] 05-11-2023 15:00-0400 Mean blood pressure 92 mm[Hg] Mateusz Jose [facility] 05-11-2023 15:00-0400 Systolic blood pressure 118 mm[Hg] Mateusz Jose [facility] 05-11-2023 14:30-0400 Heart rate 69 /min Mateusz Jose [facility] 05-11-2023 14:30-0400 Respiratory rate 18 /min Mateusz Jose [facility] 05-11-2023 14:30-0400 SaO2% (BldA) [Mass fraction] 100 % Mateusz Jose [facility] 05-11-2023 12:00-0400 Body temperature 97.7 [degF] Mateusz Jose [facility] 05-11-2023 12:00-0400 Diastolic blood pressure 83 mm[Hg] Mateusz Jose [facility] 05-11-2023 12:00-0400 Heart rate 73 /min Mateusz Jose [facility] 05-11-2023 12:00-0400 Systolic blood pressure 147 mm[Hg] Mateusz Jose [facility] 05-09-2023 16:20-0400 Diastolic blood pressure 67 mm[Hg] Mateusz Jose [facility] 05-09-2023 16:20-0400 Heart rate 75 /min Mateusz Jose [facility] 05-09-2023 16:20-0400 Mean blood pressure 82 mm[Hg] Mateusz Jose [facility] 05-09-2023 16:20-0400 Respiratory rate 16 /min Mateusz Jose [facility] 05-09-2023 16:20-0400 SaO2% (BldA) [Mass fraction] 97 % Mateusz Jose [facility] 05-09-2023 16:20-0400 Systolic blood pressure 112 mm[Hg] Mateusz Jose [facility] 05-09-2023 15:40-0400 Diastolic blood pressure 69 mm[Hg] Mateusz Jose [facility] 05-09-2023 15:40-0400 Heart rate 69 /min Mateusz Jose [facility] 05-09-2023 15:40-0400 Mean blood pressure 84 mm[Hg] Mateusz Jose [facility] 05-09-2023 15:40-0400 Respiratory rate 18 /min Mateusz Jose [facility] 05-09-2023 15:40-0400 SaO2% (BldA) [Mass fraction] 100 % Mateusz Jose [facility] 05-09-2023 15:40-0400 Systolic blood pressure 113 mm[Hg] Mateusz Jose [facility] 05-09-2023 14:00-0400 Diastolic blood pressure 80 mm[Hg] Mateusz Jose [facility] 05-09-2023 14:00-0400 Heart rate 78 /min Mateusz Jose [facility] 05-09-2023 14:00-0400 Mean blood pressure 96 mm[Hg] Mateusz Jose [facility] 05-09-2023 14:00-0400 Respiratory rate 19 /min Mateusz Jose [facility] 05-09-2023 14:00-0400 Systolic blood pressure 129 mm[Hg] Mateusz Jose [facility] 05-09-2023 11:47-0400 Body temperature 97.7 [degF] Mateusz Jose [facility] 05-09-2023 11:47-0400 Heart rate 107 /min Mateusz Jose [facility] 05-06-2023 21:11-0400 Diastolic blood pressure 61 mm[Hg] Mateusz Jose [facility] 05-06-2023 21:11-0400 Heart rate 55 /min Mateusz Jose [facility] 05-06-2023 21:11-0400 Mean blood pressure 74 mm[Hg] Mateusz Jose [facility] 05-06-2023 21:11-0400 Respiratory rate 16 /min Mateusz Jose [facility] 05-06-2023 21:11-0400 SaO2% (BldA) [Mass fraction] 100 % Mateusz Jose [facility] 05-06-2023 21:11-0400 Systolic blood pressure 100 mm[Hg] Mateusz Jose [facility] 05-06-2023 20:20-0400 Diastolic blood pressure 73 mm[Hg] Mateusz Jose [facility] 05-06-2023 20:20-0400 Heart rate 53 /min Mateusz Jose [facility] 05-06-2023 20:20-0400 Mean blood pressure 89 mm[Hg] Mateusz Jose [facility] 05-06-2023 20:20-0400 Respiratory rate 14 /min Mateusz Jose [facility] 05-06-2023 20:20-0400 SaO2% (BldA) [Mass fraction] 100 % Mateusz Jose [facility] 05-06-2023 20:20-0400 Systolic blood pressure 122 mm[Hg] Mateusz Jose [facility] 05-06-2023 19:30-0400 Diastolic blood pressure 87 mm[Hg] Mateusz Jose [facility] 05-06-2023 19:30-0400 Heart rate 72 /min Mateusz Jose [facility] 05-06-2023 19:30-0400 Mean blood pressure 105 mm[Hg] Mateusz Jose [facility] 05-06-2023 19:30-0400 Respiratory rate 16 /min Mateusz Jose [facility] 05-06-2023 19:30-0400 SaO2% (BldA) [Mass fraction] 100 % Mateusz Jose [facility] 05-06-2023 19:30-0400 Systolic blood pressure 141 mm[Hg] Mateusz Jose [facility] 05-06-2023 15:45-0400 Body temperature 98.78 [degF] Mateusz Jose [facility] 05-06-2023 15:45-0400 Heart rate 66 /min Mateusz Jose [facility] 05-06-2023 15:45-0400 Respiratory rate 18 /min Mateusz Jose [facility] 04-28-2023 09:49-0400 Body height 167.6 cm Kasie Avalos MD Work Phone: [facility] 04-28-2023 09:49-0400 Body temperature 96.6 [degF] Kasie Avalos MD Work Phone: [facility] 04-28-2023 09:49-0400 Body weight 79.38 kg Kasie Avalos MD Work Phone: [facility] 04-28-2023 09:49-0400 Diastolic blood pressure 75 mm[Hg] Kasie Avalos MD Work Phone: [facility] 04-28-2023 09:49-0400 Heart rate 80 /min Kasie Avalos MD Work Phone: [facility] 04-28-2023 09:49-0400 SaO2% (BldA) [Mass fraction] 100 % Kasie Avalos MD Work Phone: [facility] 04-28-2023 09:49-0400 Systolic blood pressure 106 mm[Hg] Kasie Avalos MD Work Phone: [facility] 04-06-2023 14:00-0500 Diastolic blood pressure 59 mm[Hg] FIRE EXTINGUISHER INSTALLER-C Jaquan Cristhian Work Phone: [facility] 04-06-2023 14:00-0500 Heart rate 59 /min FIRE EXTINGUISHER INSTALLER-C Jaquan Cristhian Work Phone: [facility] 04-06-2023 14:00-0500 Respiratory rate 16 /min FIRE EXTINGUISHER INSTALLER-C Jaquan Cristhian Work Phone: [facility] 04-06-2023 14:00-0500 SaO2% (BldA) [Mass fraction] 98 % FIRE EXTINGUISHER INSTALLER-C Jaquan Cristhian Work Phone: [facility] 04-06-2023 14:00-0500 Systolic blood pressure 113 mm[Hg] FIRE EXTINGUISHER INSTALLER-C Jaquan Cristhian Work Phone: [facility] 04-06-2023 09:47-0500 Body height 167.64 cm FIRE EXTINGUISHER INSTALLER-C Jaquan Cristhian Work Phone: [facility] 04-06-2023 09:47-0500 Body temperature 96.7 [degF] FIRE EXTINGUISHER INSTALLER-C Jaquan Morrow Work Phone: [facility] 04-06-2023 09:47-0500 Body weight 81.1 kg FIRE EXTINGUISHER INSTALLER-C Jaquan Morrow Work Phone: [facility] 04-02-2023 17:00-0500 Diastolic blood pressure 63 mm[Hg] [facility] 04-02-2023 17:00-0500 Heart rate 75 /min [facility] 04-02-2023 17:00-0500 Mean blood pressure 80 mm[Hg] [facility] 04-02-2023 17:00-0500 SaO2% (BldA) [Mass fraction] 99 % [facility] 04-02-2023 17:00-0500 Systolic blood pressure 113 mm[Hg] [facility] 04-02-2023 16:00-0500 Diastolic blood pressure 71 mm[Hg] [facility] 04-02-2023 16:00-0500 Heart rate 71 /min [facility] 04-02-2023 16:00-0500 Mean blood pressure 88 mm[Hg] [facility] 04-02-2023 16:00-0500 Respiratory rate 14 /min [facility] 04-02-2023 16:00-0500 SaO2% (BldA) [Mass fraction] 100 % [facility] 04-02-2023 16:00-0500 Systolic blood pressure 123 mm[Hg] [facility] 04-02-2023 15:00-0500 Diastolic blood pressure 55 mm[Hg] [facility] 04-02-2023 15:00-0500 Heart rate 76 /min [facility] 04-02-2023 15:00-0500 Mean blood pressure 73 mm[Hg] [facility] 04-02-2023 15:00-0500 Respiratory rate 17 /min [facility] 04-02-2023 15:00-0500 Systolic blood pressure 109 mm[Hg] [facility] 04-02-2023 10:54-0500 Body temperature 98.6 [degF] [facility] 04-02-2023 10:54-0500 Heart rate 73 /min [facility] 04-02-2023 10:54-0500 Respiratory rate 16 /min [facility] 03-20-2023 08:41-0500 Body temperature 97.5 [degF] Melisa Barker MD Work Phone: 3(916)072-793142 [place] [address] 03-20-2023 08:41-0500 Diastolic blood pressure 74 mm[Hg] Melisa Barker MD Work Phone: 7(131)369-258242 [place] [address] 03-20-2023 08:41-0500 Heart rate 62 /min Melisa Barker MD Work Phone: 9(108)299-501842 [place] [address] 03-20-2023 08:41-0500 Respiratory rate 18 /min Melisa Barker MD Work Phone: 4(448)051-071242 [place] [address] 03-20-2023 08:41-0500 SaO2% (BldA) [Mass fraction] 98 % Melisa Barker MD Work Phone: 7(642)100-524242 [place] [address] 03-20-2023 08:41-0500 Systolic blood pressure 131 mm[Hg] Melisa Barker MD Work Phone: 7(711)618-890042 [place] [address] 03-16-2023 13:47-0500 Body height 167.6 cm Melisa Barker MD Work Phone: [facility] 03-16-2023 13:47-0500 Body mass index (BMI) [Ratio] 32.99 kg/m2 Melisa Barker MD Work Phone: [facility] 03-16-2023 13:47-0500 Body weight 92.7 kg Melisa Barker MD Work Phone: [facility] 03-16-2023 12:00-0500 Diastolic blood pressure 70 mm[Hg] Earnest Johnie [facility] 03-16-2023 12:00-0500 Heart rate 69 /min Earnest Johnie [facility] 03-16-2023 12:00-0500 Mean blood pressure 84 mm[Hg] Earnest Johnie [facility] 03-16-2023 12:00-0500 Systolic blood pressure 113 mm[Hg] Earnest Johnie [facility] 03-16-2023 11:30-0500 Diastolic blood pressure 86 mm[Hg] Earnest Johnie [facility] 03-16-2023 11:30-0500 Heart rate 61 /min Earnest Johnie [facility] 03-16-2023 11:30-0500 Mean blood pressure 102 mm[Hg] Earnest Johnie [facility] 03-16-2023 11:30-0500 Respiratory rate 16 /min Earnest Johnie [facility] 03-16-2023 11:30-0500 Systolic blood pressure 133 mm[Hg] Earnest Johnie [facility] 03-16-2023 11:07-0500 Diastolic blood pressure 83 mm[Hg] Earnest Johnie [facility] 03-16-2023 11:07-0500 Heart rate 63 /min Earnest Johnie [facility] 03-16-2023 11:07-0500 Mean blood pressure 94 mm[Hg] Earnest Johnie [facility] 03-16-2023 11:07-0500 SaO2% (BldA) [Mass fraction] 100 % Earnest Blancoe [facility] 03-16-2023 11:07-0500 Systolic blood pressure 116 mm[Hg] Earnest Blancoe [facility] 03-16-2023 10:21-0500 Body temperature 97.52 [degF] Earnest Blancoe [facility] 03-16-2023 10:21-0500 Heart rate 70 /min Earnest Blancoe [facility] 03-16-2023 10:21-0500 SaO2% (BldA) [Mass fraction] 100 % Earnest Blancoe [facility] 03-15-2023 18:00-0500 Diastolic blood pressure 75 mm[Hg] Earnest Blancoe [facility] 03-15-2023 18:00-0500 Heart rate 68 /min Earnest Blancoe [facility] 03-15-2023 18:00-0500 Mean blood pressure 94 mm[Hg] Earnest Blancoe [facility] 03-15-2023 18:00-0500 Respiratory rate 16 /min Earnest Blancoe [facility] 03-15-2023 18:00-0500 SaO2% (BldA) [Mass fraction] 98 % Earnest Johnie [facility] 03-15-2023 18:00-0500 Systolic blood pressure 131 mm[Hg] Earnest Johnie [facility] 03-15-2023 17:19-0500 Diastolic blood pressure 66 mm[Hg] Earnest Johnie [facility] 03-15-2023 17:19-0500 Heart rate 56 /min Earnest Johnie [facility] 03-15-2023 17:19-0500 Mean blood pressure 79 mm[Hg] Earnest Johnie [facility] 03-15-2023 17:19-0500 Respiratory rate 18 /min Earnest Johnie [facility] 03-15-2023 17:19-0500 SaO2% (BldA) [Mass fraction] 95 % Earnest Johnie [facility] 03-15-2023 17:19-0500 Systolic blood pressure 104 mm[Hg] Earnest Johnie [facility] 03-15-2023 16:23-0500 Diastolic blood pressure 72 mm[Hg] Earnest Johnie [facility] 03-15-2023 16:23-0500 Heart rate 58 /min Earnest Johnie [facility] 03-15-2023 16:23-0500 Mean blood pressure 90 mm[Hg] Earnest Johnie [facility] 03-15-2023 16:23-0500 Respiratory rate 20 /min Earnest Johnie [facility] 03-15-2023 16:23-0500 SaO2% (BldA) [Mass fraction] 99 % Earnest Johnie [facility] 03-15-2023 16:23-0500 Systolic blood pressure 126 mm[Hg] Earnest Johnie [facility] 03-15-2023 11:41-0500 Body temperature 97.88 [degF] Earnest Johnie [facility] 03-15-2023 11:41-0500 Heart rate 71 /min Earnest Jett [facility] 03-15-2023 11:41-0500 Respiratory rate 26 /min Earnest Jett [facility] 03-10-2023 11:50-0500 Body temperature 97.9 [degF] Sherry Magaña MD Work Phone: [facility] 03-10-2023 11:50-0500 Diastolic blood pressure 85 mm[Hg] Sherry Magaña MD Work Phone: [facility] 03-10-2023 11:50-0500 Heart rate 73 /min Sherry Magaña MD Work Phone: [facility] 03-10-2023 11:50-0500 Respiratory rate 18 /min Sherry Magaña MD Work Phone: [facility] 03-10-2023 11:50-0500 SaO2% (BldA) [Mass fraction] 100 % Sherry Magaña MD Work Phone: [facility] 03-10-2023 11:50-0500 Systolic blood pressure 137 mm[Hg] Sherry Magaña MD Work Phone: [facility] 03-10-2023 08:32-0500 Body mass index (BMI) [Ratio] 29.69 kg/m2 Sherry Magaña MD Work Phone: [facility] 03-10-2023 08:32-0500 Body weight 83.4 kg Sherry Magaña MD Work Phone: [facility] 03-05-2023 06:42-0500 Body height 167.6 cm Sherry Magaña MD Work Phone: [facility] 02-13-2023 17:30-0500 Diastolic blood pressure 73 mm[Hg] FIRE EXTINGUISHER INSTALLER-C Jaquan Morrow Work Phone: [facility] 02-13-2023 17:30-0500 Heart rate 61 /min FIRE EXTINGUISHER INSTALLER-C Jaquan Cristhian Work Phone: [facility] 02-13-2023 17:30-0500 Respiratory rate 18 /min FIRE EXTINGUISHER INSTALLER-C Jaquan Cristhian Work Phone: [facility] 02-13-2023 17:30-0500 SaO2% (BldA) [Mass fraction] 100 % FIRE EXTINGUISHER INSTALLER-C Jaquan Cristhian Work Phone: [facility] 02-13-2023 17:30-0500 Systolic blood pressure 121 mm[Hg] FIRE EXTINGUISHER INSTALLER-C Jaquan Cristhian Work Phone: [facility] 02-13-2023 10:43-0500 Body height 167.64 cm FIRE EXTINGUISHER INSTALLER-C Jaquan Cristhian Work Phone: [facility] 02-13-2023 10:43-0500 Body weight 83 kg FIRE EXTINGUISHER INSTALLER-C Jaquan Cristhian Work Phone: [facility] 02-13-2023 10:42-0500 Body temperature 98.2 [degF] FIRE EXTINGUISHER INSTALLER-C Jaquan Cristhian Work Phone: [facility] 12-31-2022 15:49-0500 Diastolic blood pressure 82 mm[Hg] Mateusz Jose [facility] 12-31-2022 15:49-0500 Heart rate 81 /min Mateusz Jose [facility] 12-31-2022 15:49-0500 Mean blood pressure 96 mm[Hg] Mateusz Jose [facility] 12-31-2022 15:49-0500 Respiratory rate 16 /min Mateusz Jose [facility] 12-31-2022 15:49-0500 SaO2% (BldA) [Mass fraction] 100 % Mateusz Jose [facility] 12-31-2022 15:49-0500 Systolic blood pressure 124 mm[Hg] Mateusz Jose [facility] 12-31-2022 15:40-0500 Hourly Rounding Mateusz Jose [facility] 12-31-2022 15:40-0500 Promise to Return Mateusz Jose [facility] 12-31-2022 15:00-0500 Diastolic blood pressure 78 mm[Hg] Mateusz Jose [facility] 12-31-2022 15:00-0500 Heart rate 76 /min Mateusz Jose [facility] 12-31-2022 15:00-0500 Mean blood pressure 91 mm[Hg] Mateusz Jose [facility] 12-31-2022 15:00-0500 Systolic blood pressure 117 mm[Hg] Mateusz Jose [facility] 12-31-2022 14:40-0500 Hourly Rounding Mateusz Jose [facility] 12-31-2022 14:40-0500 Promise to Return Mateusz Jose [facility] 12-31-2022 14:00-0500 Diastolic blood pressure 83 mm[Hg] Mateusz Jose [facility] 12-31-2022 14:00-0500 Heart rate 71 /min Mateusz Jose [facility] 12-31-2022 14:00-0500 Mean blood pressure 99 mm[Hg] Mateusz Jose [facility] 12-31-2022 14:00-0500 Systolic blood pressure 132 mm[Hg] Mateusz Jose [facility] 12-31-2022 13:40-0500 Hourly Rounding Mateusz Jose [facility] 12-31-2022 13:40-0500 Promise to Return Mateusz Garcia [facility] 12-31-2022 12:42-0500 Body temperature 97.7 [degF] Mateusz Garcia [facility] 12-31-2022 12:42-0500 Heart rate 88 /min Mateusz Garcia [facility] 12-04-2022 09:54-0400 Body height 166 cm Agustin Zamorano MD Work Phone: [facility] 12-04-2022 09:54-0400 Body weight 83.78 kg Agustin Zamorano MD Work Phone: [facility] 12-04-2022 09:54-0400 Diastolic blood pressure 62 mm[Hg] Agustin Zamorano MD Work Phone: [facility] 12-04-2022 09:54-0400 Heart rate 91 /min Agustin Zamorano MD Work Phone: [facility] 12-04-2022 09:54-0400 Systolic blood pressure 112 mm[Hg] Agustin Zamorano MD Work Phone: [facility] 11-04-2022 12:00-0400 Body temperature 97.7 [degF] Rheu Jeanne Work Phone: [facility] 11-04-2022 12:00-0400 Diastolic blood pressure 65 mm[Hg] Rheu Jeanne Work Phone: [facility] 11-04-2022 12:00-0400 Heart rate 97 /min Rheu Jeanne Work Phone: [facility] 11-04-2022 09:19-0400 Body height 167.6 cm Deacon Kat MD Work Phone: [facility] 11-04-2022 09:19-0400 Body temperature 97.81 [degF] Deacon Kat MD Work Phone: [facility] 11-04-2022 09:19-0400 Body weight 83.46 kg Deacon Kat MD Work Phone: [facility] 11-04-2022 09:19-0400 Diastolic blood pressure 81 mm[Hg] Deacon Kat MD Work Phone: [facility] 11-04-2022 09:19-0400 Heart rate 82 /min Deacon Kat MD Work Phone: [facility] 11-04-2022 09:19-0400 Respiratory rate 18 /min Deacon Kat MD Work Phone: [facility] 11-04-2022 09:19-0400 SaO2% (BldA) [Mass fraction] 98 % Deacon Kat MD Work Phone: [facility] 11-04-2022 09:19-0400 Systolic blood pressure 125 mm[Hg] Deacon Kat MD Work Phone: [facility] 11-02-2022 13:52-0400 Diastolic blood pressure 82 mm[Hg] Dimitri Walker MD Work Phone: [employer] 11-02-2022 13:52-0400 Heart rate 82 /min Dimitri Walker MD Work Phone: [employer] 11-02-2022 13:52-0400 Respiratory rate 18 /min Dimitri Walker MD Work Phone: [employer] 11-02-2022 13:52-0400 Systolic blood pressure 128 mm[Hg] Dimitri Walker MD Work Phone: [employer] 11-02-2022 10:35-0400 Body mass index (BMI) [Ratio] 30.18 kg/m2 Dimitri Walker MD Work Phone: [employer] 11-02-2022 10:35-0400 Body weight 84.82 kg Dimitri Walker MD Work Phone: [employer] Comment on above: stand up scale triage room 11-02-2022 10:34-0400 Body temperature 98.29 [degF] Dimitri Walker MD Work Phone: [facility] 11-02-2022 10:34-0400 SaO2% (BldA) [Mass fraction] 98 % Dimitri Walker MD Work Phone: [facility] 10-31-2022 08:30-0400 Diastolic blood pressure 67 mm[Hg] Jalyn Suresh DO Work Phone: [employer] 10-31-2022 08:30-0400 Systolic blood pressure 120 mm[Hg] [facility]alyn [facility]uresh DO [facility] 10-31-2022 06:32-0400 Body temperature 97.7 [degF] Jalyn Suresh DO Work Phone[facility] 10-31-2022 06:32-0400 Heart rate 92 /min Jalyn Suresh DO Work Phone: [facility] [employer] 10-31-2022 06:32-0400 Respiratory rate 19 /min Jalyn Suresh DO Work Phone: [facility] 10-31-2022 06:32-0400 SaO2% (BldA) [Mass fraction] 100 % Jalyn Suresh DO Work Phone: [facility] 10-20-2022 11:52-0400 Diastolic blood pressure 86 mm[Hg] Earnest Jett [facility] 10-20-2022 11:52-0400 Heart rate 75 /min Earnest Jett [facility] 10-20-2022 11:52-0400 Respiratory rate 15 /min Earnest Jett [facility] 10-20-2022 11:52-0400 SaO2% (BldA) [Mass fraction] 99 % Earnest Jett [facility] 10-20-2022 11:52-0400 Systolic blood pressure 141 mm[Hg] Earnest Johnie [facility] 10-20-2022 10:31-0400 Diastolic blood pressure 70 mm[Hg] Earnest Johnie [facility] 10-20-2022 10:31-0400 Heart rate 70 /min Earnest Johnie [facility] 10-20-2022 10:31-0400 Mean blood pressure 92 mm[Hg] Earnest Johnie [facility] 10-20-2022 10:31-0400 Respiratory rate 16 /min Earnest Johnie [facility] 10-20-2022 10:31-0400 SaO2% (BldA) [Mass fraction] 100 % Earnest Johnie [facility] 10-20-2022 10:31-0400 Systolic blood pressure 137 mm[Hg] Earnest Johnie [facility] 10-20-2022 09:17-0400 Diastolic blood pressure 63 mm[Hg] Earnest Johnie [facility] 10-20-2022 09:17-0400 Heart rate 77 /min Earnest Johnie [facility] 10-20-2022 09:17-0400 Mean blood pressure 85 mm[Hg] Earnest Johnie [facility] 10-20-2022 09:17-0400 Respiratory rate 18 /min Earnest Johnie [facility] 10-20-2022 09:17-0400 SaO2% (BldA) [Mass fraction] 100 % Earnest Johnie [facility] 10-20-2022 09:17-0400 Systolic blood pressure 128 mm[Hg] Earnest Johnie [facility] 10-20-2022 08:17-0400 Body temperature 97.88 [degF] Earnest Johnie [facility] 10-19-2022 13:30-0400 Diastolic blood pressure 82 mm[Hg] Earnest Johnie [facility] 10-19-2022 13:30-0400 Heart rate 67 /min Earnest Johnie [facility] 10-19-2022 13:30-0400 Mean blood pressure 100 mm[Hg] Earnest Johnie [facility] 10-19-2022 13:30-0400 Respiratory rate 20 /min Earnest Blancoe [facility] 10-19-2022 13:30-0400 SaO2% (BldA) [Mass fraction] 100 % Earnest Johnie [facility] 10-19-2022 13:30-0400 Systolic blood pressure 136 mm[Hg] Earnest Johnie [facility] 10-19-2022 13:00-0400 Heart rate 61 /min Earnest Blancoe [facility] 10-19-2022 13:00-0400 Respiratory rate 18 /min Earnest Blancoe [facility] 10-19-2022 13:00-0400 Systolic blood pressure 127 mm[Hg] Earnest Johnie [facility] 10-19-2022 12:30-0400 Diastolic blood pressure 80 mm[Hg] Earnest Johnie [facility] 10-19-2022 12:30-0400 Heart rate 60 /min Earnest Johnie [facility] 10-19-2022 12:30-0400 Mean blood pressure 97 mm[Hg] Earnest Jett [facility] 10-19-2022 12:30-0400 Respiratory rate 20 /min Earnest Jett [facility] 10-19-2022 12:30-0400 SaO2% (BldA) [Mass fraction] 100 % Earnest Jett [facility] 10-19-2022 12:30-0400 Systolic blood pressure 132 mm[Hg] Earnest Jett [facility] 10-19-2022 08:34-0400 Body temperature 96.62 [degF] Earnest Jett [facility] 10-19-2022 08:34-0400 Heart rate 73 /min Earnest Jett [facility] 09-28-2022 07:54-0400 Body height 167.[address] Work Phone: [facility] 09-28-2022 07:54-0400 Body weight 83.[address] Work Phone: [facility] 09-18-2022 15:12-0400 Body height 167.6 cm Breanna Stern ETHNOARCHAEOLOGY PROFESSOR.STORE CUSTODIAN Work Phone: [facility] 09-18-2022 15:12-0400 Body temperature 97.5 [degF] Breanna Stern ETHNOARCHAEOLOGY PROFESSOR.STORE CUSTODIAN Work Phone: [facility] 09-18-2022 15:12-0400 Body weight 83.46 kg Breanna Stern ETHNOARCHAEOLOGY PROFESSOR.STORE CUSTODIAN Work Phone: [facility] 09-18-2022 15:12-0400 Diastolic blood pressure 88 mm[Hg] Breanna Stern ETHNOARCHAEOLOGY PROFESSOR.STORE CUSTODIAN Work Phone: [facility] 09-18-2022 15:12-0400 Heart rate 65 /min Breanna Stern ETHNOARCHAEOLOGY PROFESSOR.STORE CUSTODIAN Work Phone: [facility] 09-18-2022 15:12-0400 SaO2% (BldA) [Mass fraction] 99 % Breanna Stern ETHNOARCHAEOLOGY PROFESSOR.STORE CUSTODIAN Work Phone: [facility] 09-18-2022 15:12-0400 Systolic blood pressure 118 mm[Hg] Breanna Stern ETHNOARCHAEOLOGY PROFESSOR.STORE CUSTODIAN Work Phone: [facility] 07-29-2022 08:40-0400 Blood Pressure Location Rajni Lue [facility] 07-29-2022 08:40-0400 Diastolic blood pressure 86 mm[Hg] Rajni Lue [facility] 07-29-2022 08:40-0400 Heart rate 71 /min Rajni Lue [facility] 07-29-2022 08:40-0400 Systolic blood pressure 127 mm[Hg] Rajni Lue [facility] 07-22-2022 10:08-0400 Body height 167.6 cm Kasie Avalos MD Work Phone: [facility] 07-22-2022 10:08-0400 Body temperature 98.1 [degF] Kasie Avalos MD Work Phone: [facility] 07-22-2022 10:08-0400 Body weight 79.92 kg Kasie Avalos MD Work Phone: [facility] 07-22-2022 10:08-0400 Diastolic blood pressure 89 mm[Hg] Kasie Avalos MD Work Phone: [facility] 07-22-2022 10:08-0400 Heart rate 72 /min Kasie Avalos MD Work Phone: [facility] 07-22-2022 10:08-0400 SaO2% (BldA) [Mass fraction] 100 % Kasie Avalos MD Work Phone: [facility] 07-22-2022 10:08-0400 Systolic blood pressure 136 mm[Hg] Kasie Avalos MD Work Phone: [facility] 06-12-2022 10:00-0400 Body height 167.6 cm Aliyah Ziganti PA-C Work Phone: [facility] 06-12-2022 10:00-0400 Body temperature 97.5 [degF] Aliyah Ziganti PA-C Work Phone: [facility] 06-12-2022 10:00-0400 Body weight 84.37 kg Aliyah Ziganti PA-C Work Phone: [facility] 06-12-2022 10:00-0400 Diastolic blood pressure 78 mm[Hg] Aliyah Ziganti PA-C Work Phone: [facility] 06-12-2022 10:00-0400 Heart rate 68 /min Aliyah Ziganti PA-C Work Phone: [facility] 06-12-2022 10:00-0400 Systolic blood pressure 123 mm[Hg] Aliyah Ziganti PA-C Work Phone: [facility] 06-10-2022 17:43-0400 Diastolic blood pressure 74 mm[Hg] [facility] 06-10-2022 17:43-0400 Heart rate 65 /min [facility] 06-10-2022 17:43-0400 Mean blood pressure 90 mm[Hg] [facility] 06-10-2022 17:43-0400 Respiratory rate 16 /min [facility] 06-10-2022 17:43-0400 SaO2% (BldA) [Mass fraction] 100 % [facility] 06-10-2022 17:43-0400 Systolic blood pressure 122 mm[Hg] [facility] 06-10-2022 17:00-0400 Diastolic blood pressure 77 mm[Hg] [facility] 06-10-2022 17:00-0400 Heart rate 66 /min [facility] 06-10-2022 17:00-0400 Mean blood pressure 94 mm[Hg] [facility] 06-10-2022 17:00-0400 Systolic blood pressure 129 mm[Hg] [facility] 06-10-2022 16:00-0400 Heart rate 83 /min [facility] 06-10-2022 16:00-0400 Mean blood pressure 93 mm[Hg] [facility] 06-10-2022 16:00-0400 Systolic blood pressure 130 mm[Hg] [facility] 06-10-2022 12:32-0400 Body temperature 97.7 [degF] [facility] 06-10-2022 12:32-0400 Heart rate 88 /min [facility] 06-10-2022 12:32-0400 Respiratory rate 18 /min [facility] 03-06-2022 15:30-0500 Diastolic blood pressure 70 mm[Hg] Deacon Kat MD Work Phone: [facility] 03-06-2022 15:30-0500 Heart rate 67 /min Deacon Kat MD Work Phone: [facility] 03-06-2022 15:30-0500 Respiratory rate 16 /min Deacon Kat MD Work Phone: [facility] 03-06-2022 15:30-0500 SaO2% (BldA) [Mass fraction] 100 % Deacon Kat MD Work Phone: [facility] 03-06-2022 15:30-0500 Systolic blood pressure 105 mm[Hg] Deacon Kat MD Work Phone: [facility] 03-06-2022 13:00-0500 Body temperature 96.8 [degF] Deacon Kat MD Work Phone: [facility] 03-05-2022 09:33-0500 Body weight 89.81 kg Breanna Stern APRN.STORE CUSTODIAN Work Phone: [facility] 02-04-2022 09:23-0500 Body height 167.[address] Work Phone: [facility] 02-04-2022 09:23-0500 Body weight 93.[address] Work Phone: [facility] 02-03-2022 14:55-0500 Body height 167.6 cm Breanna Stern APRN.STORE CUSTODIAN Work Phone: [facility] 02-03-2022 14:55-0500 Body temperature 97 [degF] Breanna Stern APRN.STORE CUSTODIAN Work Phone: [facility] 02-03-2022 14:55-0500 Body weight 93.44 kg Breanna Stern APRN.STORE CUSTODIAN Work Phone: [facility] 02-03-2022 14:55-0500 Diastolic blood pressure 81 mm[Hg] Breanna Stern APRN.STORE CUSTODIAN Work Phone: [facility] 02-03-2022 14:55-0500 Heart rate 76 /min Breanna Stern APRN.STORE CUSTODIAN Work Phone: [facility] 02-03-2022 14:55-0500 SaO2% (BldA) [Mass fraction] 99 % Breanna Stern APRN.STORE CUSTODIAN Work Phone: [facility] 02-03-2022 14:55-0500 Systolic blood pressure 128 mm[Hg] Breanna Stern APRN.STORE CUSTODIAN Work Phone: [facility] 01-28-2022 08:41-0500 Body height 167.6 cm Pac 2 Work Phone: [facility] 01-28-2022 08:41-0500 Body temperature 97.9 [degF] Pacc 2 Work Phone: [facility] 01-28-2022 08:41-0500 Body weight 94.8 kg Pacc 2 Work Phone: [facility] 01-28-2022 08:41-0500 Diastolic blood pressure 85 mm[Hg] Pacc 2 Work Phone: [facility] 01-28-2022 08:41-0500 Heart rate 65 /min Pacc 2 Work Phone: [facility] 01-28-2022 08:41-0500 Respiratory rate 16 /min Pacc 2 Work Phone: [facility] 01-28-2022 08:41-0500 SaO2% (BldA) [Mass fraction] 100 % Pacc 2 Work Phone: [facility] 01-28-2022 08:41-0500 Systolic blood pressure 131 mm[Hg] Pacc 2 Work Phone: [facility] 01-02-2022 11:06-0500 Body weight 92.99 kg Sabina Joy APRN.CNP Work Phone: [facility] 12-25-2021 10:10-0500 Diastolic blood pressure 76 mm[Hg] Britt Cross MD Work Phone: [facility] 12-25-2021 10:10-0500 Heart rate 74 /min Britt Cross MD Work Phone: [facility] 12-25-2021 10:10-0500 Respiratory rate 18 /min Britt Cross MD Work Phone: [facility] 12-25-2021 10:10-0500 SaO2% (BldA) [Mass fraction] 100 % Britt Cross MD Work Phone: [facility] 12-25-2021 10:10-0500 Systolic blood pressure 140 mm[Hg] Britt Cross MD Work Phone: [facility] 12-25-2021 08:26-0500 Body height 167.6 cm Britt Cross MD Work Phone: [facility] 12-25-2021 08:26-0500 Body temperature 98.1 [degF] Britt Cross MD Work Phone: [facility] 12-25-2021 08:26-0500 Body weight 92.99 kg Britt Cross MD Work Phone: [facility] 10-09-2021 15:44-0400 Body height 167.6 cm Sabina Vacco ETHNOARCHAEOLOGY PROFESSOR.STORE CUSTODIAN Work Phone: [facility] 10-09-2021 15:44-0400 Body weight 89.81 kg Sabina Vacco ETHNOARCHAEOLOGY PROFESSOR.STORE CUSTODIAN Work Phone: [facility] 08-30-2021 03:47-0400 Diastolic blood pressure 70 mm[Hg] Pablo Atwood Work Phone: [employer] 08-30-2021 03:47-0400 Systolic blood pressure 130 mm[Hg] Pablo Rai VALENZUELA Work Phone: [employer] 08-30-2021 03:46-0400 Body temperature 100.4 [degF] Pablo Atwood Work Phone: [employer] 08-30-2021 03:46-0400 Heart rate 107 /min Pablo Atwood Work Phone: [employer] 08-30-2021 03:46-0400 Respiratory rate 19 /min Pablo Atwood Work Phone: [employer] 08-30-2021 03:46-0400 SaO2% (BldA) [Mass fraction] 96 % Pablo Atwood Work Phone: [employer] 08-28-2021 07:54-0400 Body height 167.[address] Work Phone: [facility] 08-28-2021 07:54-0400 Body weight 90.[address] Work Phone: [facility] 08-17-2021 12:00-0400 Body height 167.64 cm Shanna June Other [employer] Other 08-17-2021 12:00-0400 Body mass index (BMI) [Ratio] 33.08 kg/m2 Shanna June Other [employer] Other 08-17-2021 12:00-0400 Body temperature 98.1 [degF] Shanna June Other [employer] Other 08-17-2021 12:00-0400 Body weight 92.99 kg Shanna June Other [employer] Other 08-17-2021 12:00-0400 Diastolic blood pressure 80 mm[Hg] Shanna June Other [employer] Other 08-17-2021 12:00-0400 Respiratory rate 18 /min Shanna June Other [employer] Other 08-17-2021 12:00-0400 SaO2% (BldA) [Mass fraction] 99 % Shanna June Other [employer] Other 08-17-2021 12:00-0400 Systolic blood pressure 137 mm[Hg] Shanna June Other [employer] Other 07-27-2021 14:25-0400 Respiratory rate 18 /min Angela Do MD Work Phone: [facility] 07-27-2021 14:03-0400 SaO2% (BldA) [Mass fraction] 98 % Angela Do MD Work Phone: [employer] 07-27-2021 13:27-0400 Diastolic blood pressure 44 mm[Hg] Angela Do MD Work Phone: [employer] 07-27-2021 13:27-0400 Systolic blood pressure 110 mm[Hg] Angela Do MD Work Phone: [employer] 07-27-2021 10:18-0400 Body mass index (BMI) [Ratio] 31.47 kg/m2 Angela Do MD Work Phone: [employer] 07-27-2021 10:18-0400 Body temperature 98.6 [degF] Angela Do MD Work Phone: [employer] 07-27-2021 10:18-0400 Body weight 88.45 kg Angela Do MD Work Phone: [employer] 07-27-2021 10:18-0400 Heart rate 71 /min Angela Do MD Work Phone: [employer] 03-31-2021 11:00-0500 Body height 167.64 cm Shanna June Other [employer] Other 03-31-2021 11:00-0500 Body mass index (BMI) [Ratio] 33.08 kg/m2 Shanna June Other [employer] Other 03-31-2021 11:00-0500 Body temperature 98 [degF] Shanna June Other [employer] Other 03-31-2021 11:00-0500 Body weight 92.99 kg Shanna June Other [employer] Other 03-31-2021 11:00-0500 Diastolic blood pressure 91 mm[Hg] Shanna June Other [employer] Other 03-31-2021 11:00-0500 Respiratory rate 18 /min Shanna June Other [employer] Other 03-31-2021 11:00-0500 SaO2% (BldA) [Mass fraction] 100 % Shanna June Other [employer] Other 03-31-2021 11:00-0500 Systolic blood pressure 142 mm[Hg] Shanna June Other [employer] Other 01-28-2021 12:00-0500 Body height 167.64 cm Shanna June Other [employer] Other 01-28-2021 12:00-0500 Body mass index (BMI) [Ratio] 33.08 kg/m2 Shanna June Other [employer] Other 01-28-2021 12:00-0500 Body temperature 98 [degF] Shanna June Other [employer] Other 01-28-2021 12:00-0500 Body weight 92.99 kg Shanna June Other [employer] Other 01-28-2021 12:00-0500 Diastolic blood pressure 92 mm[Hg] Shanna June Other [employer] Other 01-28-2021 12:00-0500 Respiratory rate 18 /min Shanna June Other [employer] Other 01-28-2021 12:00-0500 SaO2% (BldA) [Mass fraction] 100 % Shanna June Other [employer] Other 01-28-2021 12:00-0500 Systolic blood pressure 143 mm[Hg] Shanna June Other [employer] Other 12-17-2020 17:30-0400 Body height 167.64 cm Shanna June Other [employer] Other 12-17-2020 17:30-0400 Body mass index (BMI) [Ratio] 32.92 kg/m2 Shanna June Other [employer] Other 12-17-2020 17:30-0400 Body temperature 98.2 [degF] Shanna June Other [employer] Other 12-17-2020 17:30-0400 Body weight 92.53 kg Shanna June Other [employer] Other 12-17-2020 17:30-0400 Diastolic blood pressure 71 mm[Hg] Shanna June Other [employer] Other 12-17-2020 17:30-0400 Respiratory rate 18 /min Shanna June Other [employer] Other 12-17-2020 17:30-0400 SaO2% (BldA) [Mass fraction] 100 % Shanna June Other [employer] Other 12-17-2020 17:30-0400 Systolic blood pressure 117 mm[Hg] Shanna Granadosault Other [employer] Other 12-14-2020 15:07-0400 Body height 167.6 cm Shanna June ETHNOARCHAEOLOGY PROFESSOR - FIRE EXTINGUISHER INSTALLER Work Phone: [employer] Work Phone: 12-14-2020 15:07-0400 Body mass index (BMI) [Ratio] 32.77 kg/m2 Shanna June ETHNOARCHAEOLOGY PROFESSOR - FIRE EXTINGUISHER INSTALLER Work Phone: [employer] Work Phone: 12-14-2020 15:07-0400 Body temperature 98.8 [degF] Shanna June ETHNOARCHAEOLOGY PROFESSOR - FIRE EXTINGUISHER INSTALLER Work Phone: [employer] Work Phone: 12-14-2020 15:07-0400 Body weight 92.08 kg Shanna June ETHNOARCHAEOLOGY PROFESSOR - FIRE EXTINGUISHER INSTALLER Work Phone: [employer] Work Phone: 12-14-2020 15:07-0400 Diastolic blood pressure 90 mm[Hg] Shanna June ETHNOARCHAEOLOGY PROFESSOR - FIRE EXTINGUISHER INSTALLER Work Phone: [employer] Work Phone: 12-14-2020 15:07-0400 Heart rate 85 /min Shanna June ETHNOARCHAEOLOGY PROFESSOR - FIRE EXTINGUISHER INSTALLER Work Phone: [employer] Work Phone: 12-14-2020 15:07-0400 Respiratory rate 20 /min Shanna June ETHNOARCHAEOLOGY PROFESSOR - FIRE EXTINGUISHER INSTALLER Work Phone: [employer] Work Phone: 12-14-2020 15:07-0400 SaO2% (BldA) [Mass fraction] 100 % Shanna June ETHNOARCHAEOLOGY PROFESSOR - FIRE EXTINGUISHER INSTALLER Work Phone: [employer] Work Phone: 12-14-2020 15:07-0400 Systolic blood pressure 139 mm[Hg] Shanna June ETHNOARCHAEOLOGY PROFESSOR - FIRE EXTINGUISHER INSTALLER Work Phone: [facility] Work Phone: 07-02-2020 13:16-0400 Diastolic blood pressure 56 mm[Hg] Vaughn Ceja MD Work Phone: [facility] 07-02-2020 13:16-0400 Heart rate 71 /min Vaughn Ceja MD Work Phone: [facility] 07-02-2020 13:16-0400 Respiratory rate 18 /min Vaughn Ceja MD Work Phone: [facility] 07-02-2020 13:16-0400 SaO2% (BldA) [Mass fraction] 99 % Vaughn Ceja MD Work Phone: [facility] 07-02-2020 13:16-0400 Systolic blood pressure 165 mm[Hg] Vaughn Ceja MD Work Phone: [facility] 07-02-2020 12:44-0400 Body temperature 97.39 [degF] Vaughn Ceja MD Work Phone: [facility] 07-02-2020 12:35-0400 Body height 167.6 cm Vaughn Ceja MD Work Phone: [facility] 07-02-2020 12:35-0400 Body mass index (BMI) [Ratio] 37.12 kg/m2 Vaughn Ceja MD Work Phone: [facility] 07-02-2020 12:35-0400 Body weight 104.33 kg Vaughn Ceja MD Work Phone: [facility] 01-30-2020 17:34-0500 BP Diastolic 76 mm[Hg] Agustin [facility] 01-30-2020 17:34-0500 BP Systolic 139 mm[Hg] [facility] 01-30-2020 17:34-0500 Pulse (Heart Rate) 87 /min Agustin Imtiazdamion [facility] 01-30-2020 17:34-0500 Pulse Oximetry 100 % [facility] 01-30-2020 17:34-0500 Respiratory Rate 18 /min Agustin [facility] 01-30-2020 13:22-0500 Height 167.6 cm [facility] 01-30-2020 13:16-0500 Body Temperature 97.81 [degF] Agustin [facility] Encounters Encounter Date Encounter Type Care Provider Facility Start: 08-14-2023 End: 08-14-2023 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 Jaquan Morrow Work Phone: [facility] Work Phone: Start: 08-12-2023 Telephone encounter Radha Arzate Gastroenterology Comment on above: Education Of Patient /family; Reminder Call (08/26/23 appt confirmed) Start: 08-09-2023 End: 08-09-2023 ambulatory VIC RAMOS Facility:[facility] Start: 08-09-2023 End: 08-09-2023 Patient encounter procedure Vic Ramos MD Work Phone: Pain Management Comment on above: Neuralgia and neurit is (Primary Dx); Median arcuate ligament syndrome (HCC) Start: 08-07-2023 End: 08-08-2023 Evaluation and management of inpatient ANAMIE MARCUS Facility:[facility] Start: 08-05-2023 ambulatory Boogie Sandy Work Phone: Pain Management Comment on above: Ketamine nasal spray Medication Renewal Start: 08-04-2023 Telephone encounter Boogie Tompkins ud, MD Work Phone: Pain Management Comment on above: Medication Problem Start: 08-04-2023 End: 08-06-2023 Evaluation and management of inpatient SUNDARA [facility] Facility:[facility] Start: 08-04-2023 End: 08-04-2023 ambulatory Rajni Lesli Santiagolesia Facility:[facility] Start: 08-04-2023 End: 08-04-2023 Patient encounter procedure Boogie Murguia MD Work Phone: Pain Management Comment on above: Chronic abdominal pa in (Primary Dx); Gastroesophageal reflux disease without esophagitis; Neuralgia and neuritis; Median arcuate ligament syndrome (HCC); S/P gastric bypass Start: 07-31-2023 End: 07-31-2023 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 Jaquan Morrow Work Phone: [facility] Work Phone: Start: 07-30-2023 End: 07-31-2023 Emergency department patient visit THOMAS CALIX Facility:[facility] Start: 07-28-2023 End: 07-28-2023 ambulatory TINO MONAHAN Not Available Start: 07-19-2023 Orders Only Deacon sousa MD Work Phone: General Surgery Comment on above: Chronic nausea (Prim reji Dx); History of laparoscopic partial gastrectomy; History of sphincterotomy of sphincter of Oddi; Median arcuate ligament syndrome (HCC) Start: 07-17-2023 End: 07-20-2023 Evaluation and management of inpatient DEACON KAT Facility:[facility] Start: 07-17-2023 End: 07-17-2023 Evaluation and management of inpatient FIRE EXTINGUISHER INSTALLER-Elroy Morrow Work Phone: [address] Surgical Work Phone: Start: 07-15-2023 End: 07-15-2023 ambulatory JAQUNA MORROW Facility:[facility] Start: 07-13-2023 Telephone encounter Natalie Jameson LPN Gastroenterology Comment on above: Appointment Start: 07-13-2023 ambulatory OLGA Granados ty:JENNIFER Edmondson Start: 07-09-2023 End: 07-09-2023 [facility] Pablo Lebron PSYD Work Phone: Neurology Comment on above: ARSALAN (generalized anx iety disorder) (Primary Dx); Panic disorder without agoraphobia; Moderate recurrent major depression (HCC) Start: 07-06-2023 End: 07-06-2023 Emergency department patient visit JAQUAN MORROW Facility:[facility] Start: 07-06-2023 End: 07-06-2023 ambulatory Francisco J Steve MD Work Phone: Urology Start: 07-06-2023 End: 07-06-2023 Patient encounter procedure Francisco J Steve MD Work Phone: Urology Comment on above: Urinary frequency (P rimary Dx); Urgency of urination Start: 06-29-2023 End: 07-05-2023 ambulatory DAVID VALADEZ [facility] Start: 06-29-2023 End: 06-29-2023 Subsequent hospital visit by physician Sheridan Mederos [facility] Start: 06-29-2023 End: 07-03-2023 Evaluation and management of inpatient David Valadez DO Work Phone: [facility] Comment on above: Epigastric pain (Loretta alla Dx); Median arcuate ligament syndrome (CMS-HCC); Nausea and vomiting, unspecified vomiting type; Other specified hyperalimentation; Generalized abdominal pain Start: 06-29-2023 End: 06-29-2023 ambulatory MARCOS MORENO Not Available Start: 06-22-2023 End: 06-22-2023 Office outpatient visit 10 minutes Sherry Magaña MD Work Phone: [facility] Physician Fabio Comment on above: Median arcuate ligam ent syndrome (CMS-HCC) (Primary Dx) Start: 06-22-2023 End: 06-22-2023 ambulatory SHERRY MAGAÑA [facility] Start: 06-18-2023 End: 06-18-2023 Emergency department patient visit JAQUAN MORROW Facility:[facility] Start: 06-18-2023 End: 06-18-2023 ambulatory Deacon Kat Facility:[facility] Start: 06-18-2023 End: 06-18-2023 Patient encounter procedure Breanna Stern APRN.CNP Work Phone: General Surgery Comment on above: Sudden onset of sharon re abdominal pain (Primary Dx); Nausea and vomiting, unspecified vomiting type; PEG (percutaneous endoscopic gastrostomy) status (HCC) Start: 06-17-2023 Telephone encounter May Ramey APRN.CNP Work Phone: Pain Management Comment on above: Appointment Start: 06-17-2023 End: 06-30-2023 ambulatory Jaquan L Cristhian Facility:[id number] Start: 06-15-2023 Telephone encounter Deacon shahid MD Work Phone: General Surgery Comment on above: Patient Update; Umm ent Question Start: 06-14-2023 Telephone encounter Stephanie Crystal Sumner DO Work Phone: [facility] Start: 06-14-2023 End: 06-14-2023 ambulatory Jaquan L Cristhian Facility:[facility] Afsaneh suarez Start: 06-10-2023 End: 06-15-2023 ambulatory Jaquan L Cristhian Facility:CD:[id number] Start: 06-09-2023 End: 06-09-2023 [facility] Pablo Lebron PSYD Work Phone: Neurology Comment on above: ARSALAN (generalized anx iety disorder) (Primary Dx); Panic disorder without agoraphobia; Moderate recurrent major depression (HCC) Start: 06-06-2023 End: 06-09-2023 Evaluation and management of inpatient IMELDA SOSAA Facility:[facility] Start: 06-03-2023 End: 06-03-2023 ambulatory [facility] Facility:[facility] Start: 06-02-2023 End: 06-02-2023 ambulatory Jaquan L Cristhian Facility:[facility] Afsaneh cárdenase Start: 06-01-2023 End: 06-01-2023 ambulatory Vic Ramos MD Work Phone: Pain Management Comment on above: Neuralgia and neurit is (Primary Dx); Gastroesophageal reflux disease without esophagitis; Median arcuate ligament syndrome (HCC); S/P gastric bypass Start: 06-01-2023 End: 06-01-2023 Telemedicine consultation with patient Vic Ramos MD Work Phone: [facility] Start: 05-31-2023 End: 06-09-2023 ambulatory Jaquan L Cristhian Facility:[id number] Start: 05-30-2023 End: 05-31-2023 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 Jaquan Morrow Work Phone: [facility] Work Phone: Start: 05-30-2023 Telephone encounter Deacon shahid MD Work Phone: General Surgery Start: 05-28-2023 End: 05-28-2023 Refill Kasie Avalos MD Work Phone: Gastroenterology Comment on above: Refill Request Medication Problem Start: 05-25-2023 End: 05-28-2023 Evaluation and management of inpatient DEACON KAT Facility:[facility] Start: 05-24-2023 Telephone encounter Deacon shahid MD Work Phone: General Surgery Comment on above: Patient Education; C are Coordinator - Other Start: 05-24-2023 End: 05-26-2023 ambulatory Mateusz Garcia Facility:[id number] Start: 05-20-2023 End: 05-20-2023 Emergency department patient visit TIFFANIE KEITH Facility:[facility] Start: 05-19-2023 End: 05-19-2023 ambulatory Jaquan L Cristhian Facility:[facility] Afsaneh suarez Start: 05-18-2023 Telephone encounter Deacon shahid MD Work Phone: General Surgery Comment on above: Received Outside Med ical Records Start: 05-18-2023 End: 05-22-2023 Evaluation and management of inpatient JAQUAN L CRISTHIAN Facility:[facility] Start: 05-17-2023 End: 05-17-2023 ambulatory Deacon Kat MD Work Phone: General Surgery Comment on above: Nausea and vomiting, unspecified vomiting type (Primary Dx) Start: 05-17-2023 End: 05-17-2023 Telemedicine consultation with patient Deacon Kat MD Work Phone: [facility] Start: 05-17-2023 End: 05-17-2023 Emergency department patient visit Ashutosh Albright [facility] Start: 05-17-2023 End: 05-19-2023 ambulatory Jaquan L [facility] Facility::[id number] Start: 05-12-2023 End: 05-14-2023 ambulatory Moncho Trejo Facility:[facility] Start: 05-12-2023 End: 05-14-2023 Observation Moncho Trejo [facility] Start: 05-11-2023 End: 05-11-2023 Emergency department patient visit Mateusz Garcia [facility] Start: 05-10-2023 Telephone encounter Deacon shahid MD Work Phone: General Surgery Comment on above: Patient Question Start: 05-10-2023 End: 05-10-2023 ambulatory [facility] Facility:[facility] Afsaneh suarez Start: 05-09-2023 End: 05-09-2023 Emergency department patient visit Mateusz Garcia [facility] Start: 05-07-2023 Telephone encounter Santa Hart RN Ambulatory Surgery Comment on above: Appointment (Cancel EGD) Start: 05-06-2023 End: 05-06-2023 Emergency department patient visit Mateusz Garcia [facility] Start: 04-30-2023 End: 04-30-2023 ambulatory Jaquan L Cristhian Facility:[facility] Afsaneh suarez Start: 04-28-2023 End: 04-28-2023 ambulatory KASIE AVALOS Facility:[facility] Start: 04-28-2023 End: 04-28-2023 Patient encounter procedure Kasie Avalos MD Work Phone: Gastroenterology Comment on above: Gastroesophageal ref lux disease, unspecified whether esophagitis present (Primary Dx); Constipation, unspecified constipation type Start: 04-20-2023 End: 04-20-2023 Office outpatient visit 10 minutes Sherry Magaña MD Work Phone: [facility] Comment on above: Median arcuate ligam ent syndrome (CMS/HCC) (Primary Dx) Start: 04-20-2023 End: 04-20-2023 [facility] Start: 04-07-2023 End: 04-07-2023 Postop follow up visit related to original px Sherry Magaña MD Work Phone: [facility] Comment on above: Median arcuate ligam ent syndrome (CMS/HCC) (Primary Dx) Start: 04-07-2023 End: 04-07-2023 ambulatory [facility] Start: 04-07-2023 End: 04-07-2023 Admission to same day surgery center Deacon Kat MD Work Phone: Endocrinology BMI Comment on above: Bariatric surgery st atus (Primary Dx); Dietary zinc deficiency; Vitamin D deficiency Start: 04-07-2023 End: 04-07-2023 ambulatory Deacon Kat Facility:[facility] Start: 04-07-2023 End: 04-07-2023 Telemedicine consultation with patient Deacon Kat MD Work Phone: [facility] Start: 04-06-2023 End: 04-06-2023 Emergency department patient visit FIRE EXTINGUISHER INSTALLER-Elroy Morrow Work Phone: [facility] Work Phone: Start: 04-02-2023 End: 04-02-2023 Emergency department patient visit Ashutosh Albright [facility] Start: 03-24-2023 End: 03-24-2023 ambulatory Jaquan Morrow [facility] Start: 03-16-2023 End: 03-20-2023 Evaluation and management of inpatient Melisa Barker MD Work Phone: [facility] Comment on above: Abdominal pain (Prim reji Dx); Nausea and vomiting, unspecified vomiting type; History of gastric bypass; Median arcuate ligament syndrome (CMS/HCC) Start: 03-16-2023 End: 03-16-2023 Emergency department patient visit Earnest Jett [facility] Start: 03-15-2023 End: 03-15-2023 Emergency department patient visit Earnest Jett [facility] Start: 03-05-2023 End: 03-10-2023 Evaluation and management of inpatient Sherry Magaña MD Work Phone: [facility] Comment on above: Median arcuate ligam ent syndrome (CMS/HCC) (Primary Dx) Start: 03-02-2023 End: 03-03-2023 ambulatory NO ASSIGNED PCP [facility] Start: 03-02-2023 End: 03-02-2023 ambulatory NO ASSIGNED PCP GENERIC PROVIDER [facility] Start: 03-02-2023 End: 03-02-2023 Encounter for other preprocedural examination NO ASSIGNED PCP GENERIC PROVIDER [facility] Start: 02-13-2023 End: 02-13-2023 Emergency department patient visit PAO Morrow Work Phone: [facility] Work Phone: Start: 02-12-2023 End: 02-12-2023 Emergency department patient visit NO ASSIGNED PCP [facility] Start: 02-10-2023 End: 02-10-2023 ambulatory JAQUAN L CRISTHIAN Facility:[facility] Start: 02-03-2023 End: 02-03-2023 ambulatory Jaquan L Cristhian Facility:[facility] Kimberton vue Start: 01-15-2023 Telephone encounter Deacon shahid MD Work Phone: Endocrinology BMI Comment on above: Patient Question; Pa tient Update Start: 01-14-2023 End: 01-14-2023 ambulatory Vic Ramos MD Work Phone: Pain Management Comment on above: Waitlist Start: 01-13-2023 End: 01-13-2023 Emergency department patient visit NO ASSIGNED PCP GENER[facility] PROVID[facility] Start: 01-11-2023 Orders Only Vic Conner am, MD Work Phone: Pain Management Comment on above: Chronic pain syndrom e (Primary Dx) Pain Management Proc edure missed call Start: 01-08-2023 End: 01-08-2023 ambulatory Vic Ramos MD Work Phone: Pain Management Comment on above: 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); Neuralgia and neuritis Start: 01-08-2023 End: 01-08-2023 Telemedicine consultation with patient Vic Ramos MD Work Phone: [facility] Start: 01-06-2023 Telephone encounter Vic saldana MD Work Phone: Pain Management Comment on above: Appointment Start: 12-31-2022 End: 12-31-2022 Emergency department patient visit Mateusz Garcia [facility] Start: 12-29-2022 End: 12-29-2022 ambulatory Jaquanpo Reyesab Facility:[facility] Start: 12-28-2022 Telephone encounter Deacon shahid MD Work Phone: General Surgery Comment on above: Patient Update; Orde rs Start: 12-21-2022 End: 12-21-2022 ambulatory WOOSUP M PARK [facility] Start: 12-14-2022 End: 12-14-2022 ambulatory Deacon Kat MD Work Phone: Endocrinology BMI Comment on above: Worsening Symptoms S evere Abdominal pain, unsp ecified abdominal location (Primary Dx) Start: 12-14-2022 End: 12-15-2022 Emergency department patient visit JAQUAN [facility] Start: 12-14-2022 End: 12-14-2022 Telemedicine consultation with patient Deacon Kat MD Work Phone: [facility]A Graf [facility] Start: 12-09-2022 ambulatory Jaquan L Cristhian Facility: [facility] Start: 12-06-2022 End: 12-09-2022 Evaluation and management of inpatient SHANNA WOODS Facility:[facility] Start: 12-04-2022 End: 12-04-2022 Patient encounter procedure Agustin Zamorano MD Work Phone: General Surgery Comment on above: Generalized abdomina l pain (Primary Dx) Start: 12-04-2022 End: 12-04-2022 ambulatory AGUSTIN ZAMORANO Facility:[facility] Start: 12-03-2022 Telephone encounter Oliva Dobbs RN General Surgery Start: 12-01-2022 Telephone encounter Deacon shahid MD Work Phone: Endocrinology BMI Comment on above: Patient Update Start: 12-01-2022 End: 12-01-2022 ambulatory Lokesh Terry Facility:[facility] Start: 11-27-2022 End: 12-03-2022 Evaluation and management of inpatient CAMDEN Ahumada [facility] Start: 11-26-2022 ambulatory DEACON KAT Facilit y:[facility] Start: 11-26-2022 End: 11-26-2022 Subsequent hospital visit by physician Jing/ [facility] Work Phone: CARDIOVASCULAR TESTING Comment on above: Chronic nausea [R11. 0] Start: 11-26-2022 End: 11-26-2022 ambulatory JAQUAN L CRISTHIAN Facility:[facility] Start: 11-25-2022 Telephone encounter [facility] Work Phone: Chronic Care Start: 11-25-2022 End: 11-25-2022 ambulatory Jaquan L Cristhian Facility:[facility] [facility] Start: 11-23-2022 Telephone encounter Deacon shahid MD Work Phone: Endocrinology BMI Comment on above: Patient Update Start: 11-22-2022 End: 11-23-2022 ambulatory STEVE ADIBI [facility] Start: 11-17-2022 End: 11-17-2022 ambulatory Deacon Kat MD Work Phone: Endocrinology BMI Comment on above: On-Call Surgeon - Se nt to ER Start: 11-16-2022 End: 11-17-2022 Refill Deacon Kat MD Work Phone: Endocrinology BMI Start: 11-16-2022 End: 11-16-2022 Lab Drop off Jaquan L Cristhian [facility] Start: 11-14-2022 ambulatory Deacon sousa MD Work Phone: [facility] Start: 11-14-2022 Nutrition therapy Deacon turner MD Work Phone: Endocrinology BMI Comment on above: IV Nutrition Start: 11-13-2022 End: 11-13-2022 ambulatory PABLO HEADLEYLAND Facility:[facility] Start: 11-11-2022 End: 11-12-2022 ambulatory DEACON KAT Facility:[facility] Start: 11-10-2022 End: 11-10-2022 ambulatory JAQUAN L CRISTHIAN Facility:[facility] Start: 11-09-2022 Telephone encounter Deacon shahid MD Work Phone: Endocrinology BMI Comment on above: Surgery Rescheduled Start: 11-06-2022 ambulatory Agustin Sheets RT(R) [facility] Radiology Molecular Comment on above: Radiology NM Start: 11-06-2022 Patient encounter procedure Agustin Sheets RT(R) [facility] Start: 11-06-2022 Telephone encounter Deacon shahid MD Work Phone: Endocrinology BMI Comment on above: Patient Update Start: 11-05-2022 End: 11-08-2022 ambulatory JAQUAN L CRISTHIAN [facility] Start: 11-04-2022 End: 11-04-2022 Patient encounter procedure Deacon Kat MD Work Phone: Endocrinology BMI Comment on above: Nausea (Primary Dx); RUQ pain; History of cholecystectomy Dehydration (Primary Dx); RUQ pain Right knee pain, uns pecified chronicity (Primary Dx) Start: 11-04-2022 End: 11-04-2022 ambulatory Rheu Chair 5 Jeanne Work Phone: Infusion Start: 11-04-2022 ambulatory JAQUAN L CRISTHIAN Facility: [facility] Start: 11-04-2022 End: 11-04-2022 Subsequent hospital visit by physician [facility] Work Phone: [facility] Radiology Ultrasound Comment on above: Nausea [R11.0] Start: 11-04-2022 End: 11-04-2022 ambulatory Deacon Kat Facility:[facility] Start: 11-03-2022 End: 11-03-2022 ambulatory Jaquan L Cristhian Facility:[facility] Afsaneh suarez Start: 11-02-2022 Refill Haroon ahumada APRN.STORE CUSTODIAN Work Phone: Neurology Start: 11-02-2022 End: 11-02-2022 Emergency department patient visit DIMITRI WALKER [facility] Start: 11-02-2022 End: 11-02-2022 Emergency department patient visit Dimitri Walker MD Work Phone: [facility] Emergency Department Start: 11-01-2022 ambulatory Deacon sousa MD Work Phone: Endocrinology BMI Comment on above: Worsening Symptoms Problem Start: 10-31-2022 Refill Breanna Setrn APRN.STORE CUSTODIAN Work Phone: General Surgery Comment on above: Refill Request Start: 10-31-2022 End: 10-31-2022 Emergency department patient visit WALLY Lesia FOLEY [facility] Start: 10-31-2022 End: 10-31-2022 Emergency department patient visit Jalyn Suresh DO Work Phone: [facility] ED Comment on above: Back strain, initial encounter (Primary Dx) Start: 10-29-2022 End: 11-30-2022 ambulatory Jaquan L Cristhian Facility:[id number] Start: 10-27-2022 End: 10-27-2022 ambulatory JAQUAN L CRISTHIAN [facility] Start: 10-26-2022 End: 10-26-2022 ambulatory Jaquan L Cristhian [facility] Start: 10-25-2022 End: 10-28-2022 ambulatory RAYNA BILLINGSLEY [facility] Start: 10-24-2022 ambulatory Deacon sousa MD Work Phone: Endocrinology BMI Comment on above: Symptoms Start: 10-23-2022 End: 10-23-2022 Emergency department patient visit WALLY Graf [facility] Start: 10-21-2022 End: 10-21-2022 ambulatory Jaquan L Cristhian [facility] Start: 10-21-2022 End: 10-21-2022 Emergency department patient visit [facility] Facility:[facility] Start: 10-20-2022 Telephone encounter Deacon shahid MD Work Phone: General Surgery Comment on above: Patient Question; Na usea & Vomiting Start: 10-20-2022 End: 10-20-2022 Emergency department patient visit Earnest Jett [facility] Start: 10-19-2022 ambulatory Breanna Meriln ANDREWS Work Phone: General Surgery Comment on above: Worsening Symptoms Start: 10-19-2022 End: 10-19-2022 Emergency department patient visit Earnest Jett [facility] Start: 10-18-2022 Emergency department patient visit [facility] Facility:[facility] Start: 10-17-2022 End: 10-17-2022 Emergency department patient visit [place] Lesia [facility] Start: 10-15-2022 Refill Kasie Avalos MD Work Phone: Gastroenterology Comment on above: Refill Request Start: 10-07-2022 End: 10-07-2022 ambulatory Jaquan L Cristhian Facility:[facility] Start: 10-05-2022 End: 10-05-2022 Distance [facility] Pablo Lebron PSYD Work Phone: Neurology [...] End: 09-28-2022 Telemedicine consultation with patient Xiomara Terrymichael GARLAND Work Phone: [facility] Start: 09-22-2022 End: 09-22-2022 ambulatory JAQUAN MORROW Facility:[facility] Start: 09-21-2022 End: 09-21-2022 [facility] Pablo Lebron PSYD Work Phone: Neurology Comment on above: ARSALAN (generalized anx iety disorder) (Primary Dx); Panic disorder without agoraphobia; Moderate recurrent major depression (HCC) Start: 09-18-2022 End: 09-18-2022 ambulatory BREANNA STERN Facility:[facility] Start: 09-18-2022 End: 09-18-2022 Patient encounter procedure Breanna Stern APRN.CNP Work Phone: General Surgery Comment on above: Encounter for surgic al aftercare following surgery of digestive system (Primary Dx); Impaired intestinal absorption; Esophageal dysphagia; Gastroesophageal reflux disease, unspecified whether esophagitis present; S/P bariatric surgery Start: 08-06-2022 ambulatory Kasie Avalos MD Work Phone: Gastroenterology Comment on above: Medication Coverage Start: 07-29-2022 End: 07-29-2022 Patient encounter procedure Rajni Rouse [facility] Start: 07-28-2022 End: 07-28-2022 Patient encounter procedure Samara Evans MD Work Phone: Dermatology Comment on above: Rash and nonspecific skin eruption (Primary Dx); Pain in eye, unspecified laterality; Facial edema Start: 07-27-[address] WALLY FOLEY . Facil ity:[facility] Start: 07-23-2022 Telephone encounter Kasei jean MD Work Phone: Gastroenterology Comment on above: Medication Problem ( Motegrity ) Start: 07-22-2022 End: 07-22-2022 Patient encounter procedure [facility] Work Phone: Ophthalmology Comment on above: Vernal conjunctiviti s of both eyes (Primary Dx) Start: 07-22-2022 Refill Kasie Avalos MD Work Phone: Gastroenterology Comment on above: Med Change Request Start: 07-22-2022 End: 07-22-2022 Patient encounter procedure Kasie Avalos MD Work Phone: Gastroenterology Comment on above: Constipation, unspec ified constipation type (Primary Dx); Nausea; Rash of face; Enlarged lymph nodes Start: 07-20-2022 End: 07-20-2022 Lab Drop off Jaquan Morrow [facility] Start: 06-18-2022 End: 06-18-2022 ambulatory Aliyah Washburn PA-C Work Phone: [facility] Comment on above: Encounter to discuss test results (Primary Dx); NO SHOW Start: 06-18-2022 End: 06-18-2022 Telemedicine consultation with patient Aliyah Washburn PA-C Work Phone: [facility] Start: 06-12-2022 End: 06-12-2022 Patient encounter procedure Aliyah Washburn PA-C Work Phone: [facility] Comment on above: Polyarthralgia (Prim reji Dx); Malaise and fatigue; Subjective fever; S/P laparoscopic sleeve gastrectomy; History of syncope; History of adrenal insufficiency; Hypothyroidism, unspecified type Start: 06-11-2022 End: 07-24-2022 Pre-admission assessment Rui C Anya [facility] Start: 06-10-2022 End: 06-10-2022 Emergency department patient visit Ashutosh Albright [facility] Start: 06-09-2022 End: 06-09-[address] DOCTOR CARRERA Facility:[facility] Start: 05-22-2022 End: 05-23-[address] WALLY FOLEY . Facility:[facility] Start: 03-30-2022 ambulatory Breanna Shaikhcecilia RYANSTORE CUSTODIAN Work Phone: [facility] Start: 03-30-2022 Patient encounter procedure Breanna Stern APRDanielleSTORE CUSTODIAN Work Phone: General Surgery Comment on above: Cancel Appointment C annot Reach Anyone Start: 03-06-2022 End: 03-06-2022 Subsequent hospital visit by physician Deacon Kat MD Work Phone: [facility] Endoscopy - ENDO Comment on above: Esophageal dysphagia [R13.19] Start: 03-05-2022 Telephone encounter Li márquez RN Work Phone: Endocrinology BMI Comment on above: EGD Instructions Start: 03-05-2022 End: 03-05-2022 ambulatory Breanna Stern STORE CUSTODIAN Work Phone: General Surgery Comment on above: Esophageal dysphagia (Primary Dx); S/P gastric bypass; Postoperative malabsorption Start: 03-05-2022 End: 03-05-2022 Telemedicine consultation with patient Breanna Stern APRDanielleSTORE CUSTODIAN Work Phone: [facility] Start: 03-02-2022 End: 03-03-[address] WALLY FOLEY . Facility:[facility] Start: 02-17-2022 End: 02-18-[address] WALLY FOLEY . Facility:[facility] Start: 02-13-2022 End: 02-13-2022 Patient encounter procedure Kuldip Yousif MD Work Phone: [facility] Comment on above: Acetabular labrum te ar, right, subsequent encounter (Primary Dx) Start: 02-05-2022 Orders Only Deacon sousa MD Work Phone: Endocrinology BMI Comment on above: Postoperative pain Start: 02-04-2022 ambulatory Deacon sousa MD Work Phone: ANGELA Graf [facility] Start: 02-04-2022 Follow-up encounter Deacon shahid MD Work Phone: Endocrinology BMI Comment on above: Surgery Follow-Up Start: 02-04-2022 End: 02-04-2022 Admission to same day surgery center Nahed Tamez RD Work Phone: Nutrition Therapy Comment on above: S/P gastric surgery (Primary Dx); Dietary counseling Start: 02-04-2022 End: 02-04-2022 Telemedicine consultation with patient Nahed Tamez RD Work Phone: [facility] Start: 02-03-2022 End: 02-03-2022 Patient encounter procedure Breanna Stern ETHNOARCHAEOLOGY PROFESSOR.STORE CUSTODIAN Work Phone: General Surgery Comment on above: S/P bariatric surger y (Primary Dx); Postoperative pain; Primary osteoarthritis involving multiple joints Start: 02-02-2022 Telephone encounter Deacon shahid MD Work Phone: General Surgery Comment on above: Medication Question Start: 01-31-2022 ambulatory Deacon sousa MD Work Phone: Endocrinology BMI Comment on above: Home prescription qu estion Start: 01-28-2022 End: 01-28-2022 [facility] Work Phone: [facility] Start: 01-28-2022 End: 01-28-2022 ambulatory [facility] 2 Work Phone: Pre Anesthesia Comment on [...] p. GJ revision) Start: 01-02-2022 End: 01-02-2022 [facility] Sabina Joy APRN.STORE CUSTODIAN Work Phone: General Surgery Comment on above: [...] Huerta orders) Start: 11-19-2021 Patient Msg Li Jigar RN Work Phone: Endocrinology BMI Comment on above: Testing ordered by Jose Kat Start: 11-18-2021 Patient Update Breanna Stern ETHNOARCHAEOLOGY PROFESSOR.STORE CUSTODIAN Work Phone: Endocrinology BMI Comment on above: Orders (pH Impedence ) Start: 11-17-2021 End: 11-17-2021 Telemedicine consultation with patient Deacon Kat MD Work Phone: [facility] Start: 11-17-2021 End: 11-17-2021 ambulatory Deacon Kat MD Work Phone: Endocrinology BMI Comment on above: Gastroesophageal ref lux disease without esophagitis (Primary Dx) Refill Request; Refi ll Request Start: 10-27-2021 End: 10-28-[address] WALLY FOLEY . Facility:[facility] Start: 10-21-2021 Telephone encounter Kuldip mckeon MD Work Phone: [facility] Comment on above: Appointment Start: 10-09-2021 End: 10-09-2021 [facility] Sabina Joy ETHNOARCHAEOLOGY PROFESSOR.STORE CUSTODIAN Work Phone: General Surgery Comment on above: Gastroesophageal ref lux disease, unspecified whether esophagitis present (Primary Dx); Bariatric surgery status; Weight disorder; Class 1 obesity with serious comorbidity and body mass index (BMI) of 31.0 to 31.9 in adult, unspecified obesity type; S/P laparoscopic sleeve gastrectomy; Dietary counseling and surveillance Start: 10-08-2021 ambulatory Kuldip Yousif MD Work Phone: [facility] Start: 10-08-2021 Patient encounter procedure Kuldip Yousif MD Work Phone: [employer] Comment on above: Appointment Time Tod ay Start: 10-04-2021 End: 10-05-[address] WALLY FOLEY . Facility:[facility] Start: 08-30-2021 End: 08-30-2021 Emergency department patient visit Pablo Atwood DO Work Phone: [facility] ED Comment on above: Dental infection (Pr imary Dx) Start: 08-29-2021 End: 08-29-2021 ambulatory Justine Johnson Mele PA-C Work Phone: [facility] Comment on above: Tear of right acetab ular labrum, subsequent encounter (Primary Dx) Start: 08-29-2021 End: 08-29-2021 Telemedicine consultation with patient Justine Johnson Mele PA-C Work Phone: [facility] [address] Start: 08-28-2021 Refill Justine Johnson Nicki ardon PA-C Work Phone: [facility] Comment on above: Refill Request Start: 08-28-2021 End: 08-28-2021 ambulatory Xiomara Terrymichael GARLAND Work Phone: General Surgery Comment on above: S/P laparoscopic sle dee dee gastrectomy (Primary Dx); Obesity, Class I, BMI 30-34.9; Dietary counseling and surveillance Start: 08-28-2021 End: 08-28-2021 Telemedicine consultation with patient Xiomara Martinez RD Work Phone: [facility] Start: 08-25-2021 Encounter for genera l adult medical examination without abnormal findings SHANNA JUNE [facility] Start: 08-24-2021 ambulatory Deacon sousa MD Work Phone: Endocrinology BMI Comment on above: Possible Revision Di scussion Start: 08-22-2021 End: 08-22-2021 Refill Kasie Avalos MD Work Phone: Gastroenterology Comment on above: Refill Request Start: 08-22-2021 Telephone encounter Shanna hooks [facility] Start: 08-21-2021 End: 08-22-2021 Encounter for general adult medical examination without abnormal findings DR WALLY FOLEY . Facility:[facility] Start: 08-21-2021 End: 08-22-[address] WALLY FOLEY . Facility:[facility] Start: 08-19-2021 End: 08-20-[address] WALLY FOLEY . Facility:[facility] Start: 08-17-2021 End: 08-17-2021 ambulatory Shanna June Other [employer] Other Start: 08-17-2021 Office outpatient vi sit 15 minutes Shanna June [facility] Start: 08-14-2021 Refill Justine Caceres ac PA-C Work Phone: [facility] Comment on above: Refill Request Start: 08-01-2021 End: 08-01-2021 ambulatory Justine Alex Elizabethc PA-C Work Phone: [facility] Comment on above: Tear of right acetab ular labrum, subsequent encounter (Primary Dx) Start: 08-01-2021 End: 08-01-2021 Telemedicine consultation with patient Justine Johnson Elizabethc PA-C Work Phone: [facility] [address] Start: 07-30-2021 End: 07-30-[address] MARCOS MORENO . Facility:[facility] Start: 07-28-2021 ambulatory Justinerodolfo Caceres ac PA-C Work Phone: [facility] [address] Start: 07-28-2021 Patient encounter procedure Justine Shabazz PA-C Work Phone: [facility] Comment on above: Virtual Appointment Start: 07-27-2021 End: 07-27-2021 Emergency department patient visit Angela Do MD Work Phone: [facility] ED Comment on above: Generalized abdomina l pain (Primary Dx) Start: 07-14-2021 ambulatory Justine Caceres ac PA-C Work Phone: [facility] Comment on above: Medication Start: 07-11-2021 End: 08-26-[address] DOCTOR CARRERA Facility:[facility] Start: 07-04-2021 End: 07-04-2021 ambulatory Justine Serranodaniel INMAN-C Work Phone: [facility] Comment on above: Tear of right acetab ular labrum, subsequent encounter (Primary Dx) Start: 07-04-2021 End: 07-04-2021 Telemedicine consultation with patient Justine Johnson Mele INMAN-C Work Phone: [facility] [address] Start: 06-23-2021 Admission to [facility] Jace Duarte AT Work Phone: [facility] Comment on above: Schedule Surgery Start: 06-23-2021 ambulatory Jace Lara ck AT Work Phone: [facility] [address] Start: 06-18-2021 End: 06-18-2021 Patient encounter procedure Kuldip Yousif MD Work Phone: 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) Start: 04-02-2021 End: 04-02-2021 ambulatory Shanna June Other [employer] Other Start: 04-02-2021 Telephone encounter Shanna hooks [facility] Start: 03-31-2021 End: 03-31-2021 ambulatory Shanna June Other [employer] Other Start: 03-31-2021 Office outpatient vi sit 15 minutes Shanna June [facility] Start: 03-10-2021 End: 03-10-2021 ambulatory Shanna June Other [employer] Other Start: 03-10-2021 Telephone encounter Shanna hooks [facility] Web Marketing Assistant Start: 01-28-2021 End: 01-28-2021 ambulatory Shanna June Other [employer] Other Start: 01-28-2021 Office outpatient vi sit 15 minutes Shanna June [facility] Start: 12-17-2020 End: 12-17-2020 ambulatory Shanna June Other [employer] Other Start: 12-17-2020 Encounter for genera l adult medical examination without abnormal findings Shanna June [facility] Start: 12-17-2020 Periodic preventive med est patient 18-39 yrs Shanna June [facility] Start: 12-14-2020 End: 12-14-2020 Emergency department patient visit Shanna June ETHNOARCHAEOLOGY PROFESSOR - FIRE EXTINGUISHER INSTALLER Work Phone: [facility] ED Comment on above: Contusion of right t humb without damage to nail, initial encounter (Primary Dx) Start: 12-09-2020 ambulatory LUCIE Foster lity:[facility] REV LOC Start: 07-02-2020 End: 07-02-2020 Emergency department patient visit Vaughn Ceja MD Work Phone: [facility] Emergency Department Start: 01-30-2020 End: 01-30-2020 Emergency department patient visit Agustin Gustafson Work Phone: [facility] Emergency Department Start: 09-25-2019 End: 08-04-2023 Preprocedural examination done Kuldip Yousif MD Work Phone: [facility] Work Phone: Start: 09-10-2017 End: 09-11-2017 Patient encounter DEFAULT PHYSICIAN Facility:[facility] Procedures Date Procedure Procedure Detail Performing Clinician Start: 08-14-2023 Computed tomography of abdomen and pelvis with contrast PAO Morrow Work Phone: Start: 07-31-2023 Computed tomography of abdomen and pelvis with contrast FIRE EXTINGUISHER INSTALLERYohana Morrow Work Phone: Start: 07-16-2023 Computed tomography of abdomen and pelvis with contrast FIRE EXTINGUISHER INSTALLERYohana Morrow Work Phone: Start: 07-15-2023 Follow-up visit Follow Up RYLEE THACKER Start: 07-06-2023 Urnls dip stick/tablet rgnt auto w/o microscopy Bulk Order Provider Start: 07-03-2023 LONG CATHETER REMOVAL WOOS GÓMEZ Start: 07-03-2023 DISCHARGE PATIENT WOOSBAHMAN GÓMEZ Start: 07-03-2023 Glucose [Mass/volume] in Serum or Plasma WOOS GÓMEZ Start: 07-03-2023 Glucose quantitative blood xcpt reagent strip Kina Ann MD Work Phone: Start: 07-02-2023 Glucose [Mass/volume] in Serum or Plasma [facility] G[facility]ME[facility] Start: 07-02-2023 Glucose quantitative blood xcpt reagent strip Kina Ann MD Work Phone: Start: 07-02-2023 Glucose [Mass/volume] in Serum or Plasma [facility] Start: 07-02-2023 DIET TUBE FEEDING WITH TRAY SHERRY MAGAÑA Start: 07-02-2023 Glucose quantitative blood xcpt reagent strip Kina Ann MD Work Phone: Start: 07-02-2023 Glucose [Mass/volume] in Serum or Plasma GABRIELLAGazillion EntertainmentBAHMAN MAGAÑA Start: 07-02-2023 Glucose quantitative blood xcpt reagent strip Kina Ann MD Work Phone: Start: 07-02-2023 DO NOT REMOVE URINARY CATHETER WITHOUT PROVIDER ORDER [facility] Start: 07-02-2023 Glucose [Mass/volume] in Serum or Plasma [facility] Start: 07-02-2023 CBC panel - Blood by Automated count [facility] Start: 07-02-2023 RENAL FUNCTION PANEL [facility] Start: 07-02-2023 Glucose quantitative blood xcpt reagent strip Dolores Cox MD Work Phone: Start: 07-02-2023 Renal function panel Dolores Cox MD Work Phone: Start: 07-02-2023 Glucose [Mass/volume] in Serum or Plasma [facility] Start: 07-01-2023 Glucose quantitative blood xcpt reagent strip Dolores Cox MD Work Phone: Start: 07-01-2023 Glucose [Mass/volume] in Serum or Plasma [facility] Start: 07-01-2023 Glucose quantitative blood xcpt reagent strip Dolores Cox MD Work Phone: Start: 07-01-2023 Glucose [Mass/volume] in Serum or Plasma [facility] Start: 07-01-2023 Glucose quantitative blood xcpt reagent strip Dolores Cox MD Work Phone: Start: 07-01-2023 XR CHEST 1 VIEW [facility] G[facility]MEZ Start: 07-01-2023 Glucose [Mass/volume] in Serum or Plasma [facility] Start: 07-01-2023 Glucose [Mass/volume] in Serum or Plasma [facility] Start: 07-01-2023 Radiologic exam chest single view Yajairam aamir Cox MD Work Phone: Start: 07-01-2023 Glucose quantitative blood xcpt reagent strip Dolores Cox MD Work Phone: Start: 07-01-2023 Glucose quantitative blood xcpt reagent strip Dolores Cox MD Work Phone: Start: 07-01-2023 Glucose [Mass/volume] in Serum or Plasma [employer] GÓMEZ Start: 07-01-2023 Glucose quantitative blood xcpt reagent strip Dolores Cox MD Work Phone: Start: 07-01-2023 CBC panel - Blood by Automated count [facility] Start: 07-01-2023 Magnesium [Mass/volume] in Serum or Plasma [facility] Start: 07-01-2023 RENAL FUNCTION PANEL [facility] Start: 07-01-2023 Renal function panel Dolores Cox MD Work Phone: Start: 07-01-2023 BATH/SHOWER WITH CHLORHEXIDINE GLUCONATE [facility] Start: 06-30-2023 Glucose [Mass/volume] in Serum or Plasma [facility] Start: 06-30-2023 Glucose quantitative blood xcpt reagent strip Dolores Cox MD Work Phone: Start: 06-30-2023 MAY PARTICIPATE IN ROOM SERVICE [facility] Start: 06-30-2023 IP CONSULT [facility]ARE [facility] Start: 06-30-2023 IP CONSULT TO NUTRITION SERVICES [facility] Start: 06-30-2023 IP CONSULT TO SOCIAL WORK [facility] Start: 06-30-2023 IP CONSULT TO RESPIRATORY CARE [facility] PA RK Start: 06-30-2023 NOTIFY PROVIDER (DO NOT PROMPT FOR PARAMETERS) [facility] Start: 06-30-2023 NURSING COMMUNICATION [facility] Start: 06-30-2023 PULSE OXIMETRY, CONTINUOUS [facility] Start: 06-30-2023 ECG 12-LEAD [facility] Start: 06-30-2023 STAPHYLOCOCCUS AUREUS/MRSA COLONIZATION, CULTURE [facility] Start: 06-30-2023 Glucose [Mass/volume] in Serum or Plasma [facility] Start: 06-30-2023 CT ANGIO ABDOMEN PELVIS W AND/OR WO IV IV CONTRAST [facility] Start: 06-30-2023 VASC US MESENTERIC ARTERY DUPLEX COMPLETE [facility] Start: 06-30-2023 Glucose quantitative blood xcpt reagent strip Baldomero Woodard MD Work Phone: Start: 06-30-2023 Ct angio abd&plvis cntrst mtrl w/wo cntrst img Tiffanie Mendez ETHNOARCHAEOLOGY PROFESSOR-STORE CUSTODIAN Work Phone: Start: 06-30-2023 Dup-scan artl tiara abdl/pel/scrot&/rpr orgn com Jamil Gavin MD Work Phone: Start: 06-30-2023 CBC panel - Blood by Automated count [facility] Start: 06-30-2023 Comprehensive metabolic 2000 panel - Serum or Plasma [facility] Start: 06-30-2023 Magnesium [Mass/volume] in Serum or Plasma [facility] Start: 06-30-2023 Phosphate [Mass/volume] in Serum or Plasma [facility] Start: 06-30-2023 Comprehensive metabolic panel Baldomero serrano MD Work Phone: Start: 06-30-2023 IP CONSULT TO [facility] HENNY CASTILLO Start: 06-30-2023 CENTRAL VENOUS LINE CAP CHANGE - ADULTS [facility] Start: 06-30-2023 CENTRAL VENOUS LINE DRESSING CHANGE - ADULT [facility] Start: 06-30-2023 CENTRAL VENOUS LINE TUBING CHANGE - ADULTS [facility] Start: 06-30-2023 IP CONSULT TO ACUTE CARE SURGERY [facility] Start: 06-30-2023 GASTRIC TUBE CARE [facility] Start: 06-30-2023 NOTIFY PROVIDER (PROMPT FOR PARAMETERS) [facility] Start: 06-30-2023 NURSING COMMUNICATION [facility] Start: 06-30-2023 NURSING COMMUNICATION - DO NOT USE IN ORDER SETS [facility] Start: 06-30-2023 POCT GLUCOSE METER [facility] Start: 06-30-2023 EXTRA URINE [place]O TUBE [facility] Start: 06-30-2023 HCG, URINE, QUALITATIVE [facility] Start: 06-30-2023 URINALYSIS WITH REFLEX CULTURE AND MICROSCOPIC [facility] Start: 06-30-2023 ADMIT TO INPATIENT [facility] Start: 06-30-2023 ED TO FLOOR BED REQUEST [facility] Start: 06-30-2023 EXTRA URINE OR[place]O TUBE David Dykes Rory DO Work Phone: Start: 06-30-2023 Urinalysis complete W Reflex Culture panel - Urine David Jania Rory DO Work Phone: Start: 06-30-2023 Urnls dip stick/tablet rgnt auto w/o microscopy David Valadez DO Work Phone: Start: 06-30-2023 CT ABDOMEN PELVIS WO IV CONTRAST [facility] Start: 06-29-2023 Ct abdomen & pelvis w/o contrast material David Valadez DO Work Phone: Start: 06-29-2023 Basic metabolic 2000 panel - Serum or Plasma [facility] [employer] Start: 06-29-2023 CBC panel - Blood by Automated count [facility] Start: 06-29-2023 Glucose [Mass/volume] in Serum or Plasma [facility] Start: 06-29-2023 CBC W Auto Differential panel - Blood [facility] [employer] Start: 06-29-2023 Comprehensive metabolic 2000 panel - Serum or Plasma [facility] [employer] Start: 06-29-2023 Comprehensive metabolic panel David rowland DO Work Phone: Start: 06-29-2023 Ecg routine ecg w/least 12 lds trcg only w/o i&r David Valadez DO Work Phone: Start: 06-29-2023 End: 06-29-2023 Comprehensive metabolic panel David rowland DO Work Phone: Start: 06-18-2023 Electrocardiogram JAQUAN CRISTHIAN Start: 05-30-2023 Computed tomography of abdomen and pelvis with contrast FIRE EXTINGUISHER INSTALLER-C Jaquan Cristhian Work Phone: Start: 05-30-2023 Urine culture FIRE EXTINGUISHER INSTALLER-C Jaquan Cristhian Work Phone: Start: 05-25-2023 Esophagoscp rig transoral hypopharynx crv eskristal Eliaseverette Rouse Start: 05-20-2023 Esophagoscp rig transoral hypopharynx crv esoph Rajni Lue Start: 05-12-2023 Esophagogastroduodenoscopy Moncho Paste r Start: 04-06-2023 Computed tomography of abdomen and pelvis with contrast FIRE EXTINGUISHER INSTALLER-C Jaquan Cristhian Work Phone: Start: 03-20-2023 DISCHARGE PATIENT WOMERARY MAGAÑA Start: 03-19-2023 [facility]CHAR[facility]IENT [facility] Start: 03-19-2023 Esophagogastroduodenoscopy [facility] Start: 03-19-2023 SURGICAL PATHOLOGY EXAM [facility] Start: 03-19-2023 Egd transoral biopsy single/multiple Deepika Roy ETHNOARCHAEOLOGY PROFESSOR-STORE CUSTODIAN Work Phone: Start: 03-19-2023 CBC panel - Blood by Automated count [facility] [employer] Start: 03-19-2023 Comprehensive metabolic 2000 panel - Serum or Plasma [facility] Start: 03-19-2023 Comprehensive metabolic panel Tiffanie Cruz all ETHNOARCHAEOLOGY PROFESSOR-STORE CUSTODIAN Work Phone: Start: 03-18-2023 CBC panel - Blood by Automated count [email or web address] Start: 03-18-2023 Comprehensive metabolic 2000 panel - Serum or Plasma [facility] Start: 03-18-2023 Comprehensive metabolic panel Tiffanie Cruz all ETHNOARCHAEOLOGY PROFESSOR-STORE CUSTODIAN Work Phone: Start: 03-17-2023 XR CHEST 1 VIEW [facility] Start: 03-17-2023 Radiologic exam chest single view Tiffanie Mendez ETHNOARCHAEOLOGY PROFESSOR-STORE CUSTODIAN Work Phone: Start: 03-17-2023 FL UPPER GI W DOUBLE CONTRAST W SMALL BOWEL FOLLOW THROUGH [facility] Start: 03-17-2023 Radiologic exam upr gi trc double contrast study Tiffanie Mendez ETHNOARCHAEOLOGY PROFESSOR-STORE CUSTODIAN Work Phone: Start: 03-17-2023 XR CHEST 1 VIEW [facility] [employer] Start: 03-17-2023 Radiologic exam chest single view Tiffanie Mendez ETHNOARCHAEOLOGY PROFESSOR-STORE CUSTODIAN Work Phone: Start: 03-17-2023 CBC panel - Blood by Automated count [employer] Start: 03-17-2023 Comprehensive metabolic 2000 panel - Serum or Plasma [facility] Start: 03-17-2023 ECG 12-LEAD [facility] Start: 03-17-2023 Comprehensive metabolic panel Tiffanie Cruz all ETHNOARCHAEOLOGY PROFESSOR-STORE CUSTODIAN Work Phone: Start: 03-16-2023 CT ABDOMEN PELVIS W IV CONTRAST [facility] Jonh BRAY Start: 03-16-2023 Ct abdomen & pelvis w/contrast material Tiffanie Mendez ETHNOARCHAEOLOGY PROFESSOR-STORE CUSTODIAN Work Phone: Start: 03-16-2023 ED TO FLOOR BED REQUEST [facility] Start: 03-16-2023 PULSE OXIMETRY, CONTINUOUS [facility] Start: 03-16-2023 TELEMETRY MONITORING [facility] Start: 03-16-2023 MEASURE HEIGHT [facility] Start: 03-16-2023 ORTHOSTATIC BLOOD PRESSURE [facility] Start: 03-16-2023 WEIGH [facility]IENT [facility] Start: 03-16-2023 ADMIT TO INPATIENT [facility] Start: 03-16-2023 CBC W Auto Differential panel - Blood [facility] Start: 03-16-2023 Comprehensive metabolic 2000 panel - Serum or Plasma [facility] Start: 03-16-2023 SARS-COV-2 AND INFLUENZA A/B PCR [facility] Start: 03-16-2023 PULSE OXIMETRY, CONTINUOUS Tiffanie Mendez ETHNOARCHAEOLOGY PROFESSOR-STORE CUSTODIAN Work Phone: Start: 03-16-2023 Comprehensive metabolic panel Melisa lipscomb MD Work Phone: Start: 03-16-2023 Influenza virus A and B and SARS-CoV-2 (COVID-19) identified in Respiratory specimen by HANK with probe detection Melisa Barker MD Work Phone: Start: 03-10-2023 DISCHARGE PATIENT [facility] Start: 03-10-2023 DISCHARGE INSTRUCTIONS [facility] Start: 03-10-2023 Glucose [Mass/volume] in Serum or Plasma [facility] Start: 03-10-2023 Glucose quantitative blood xcpt reagent strip Dolores Cox MD Work Phone: Start: 03-10-2023 Glucose [Mass/volume] in Serum or Plasma [facility] Start: 03-10-2023 Glucose quantitative blood xcpt reagent strip Dolores Cox MD Work Phone: Start: 03-10-2023 Basic metabolic 2000 panel - Serum or Plasma [facility] Start: 03-10-2023 CBC panel - Blood by Automated count [facility] Start: 03-10-2023 Glucose [Mass/volume] in Serum or Plasma [facility] Start: 03-10-2023 End: 03-10-2023 Basic metabolic panel calcium total Alicia Toro ETHNOARCHAEOLOGY PROFESSOR-STORE CUSTODIAN Work Phone: Start: 03-10-2023 POCT GLUCOSE METER [facility] Start: 03-10-2023 Glucose [Mass/volume] in Serum or Plasma [facility] Start: 03-10-2023 Glucose quantitative blood xcpt reagent strip Dolores Cox MD Work Phone: Start: 03-09-2023 Glucose [Mass/volume] in Serum or Plasma [facility] Start: 03-09-2023 Glucose quantitative blood xcpt reagent strip Dolores Cox MD Work Phone: Start: 03-09-2023 Glucose [Mass/volume] in Serum or Plasma [facility] Start: 03-09-2023 Glucose quantitative blood xcpt reagent strip Dolores Cox MD Work Phone: Start: 03-09-2023 C. DIFFICILE, PCR [facility] Start: 03-09-2023 STOOL PATHOGEN PANEL, PCR [facility] Start: 03-09-2023 Glucose [Mass/volume] in Serum or Plasma [facility] Start: 03-09-2023 Iadna-dna/rna gi pthgn multiplex probe tq 6-11 Alicia Toro ETHNOARCHAEOLOGY PROFESSOR-[facility] Work Phone: Start: 03-09-2023 Inf agent det nucleic acid clostridium amp probe Alicia Toro ETHNOARCHAEOLOGY PROFESSOR-[facility] Work Phone: Start: 03-09-2023 IP CONSULT TO NUTRITION SERVICES [facility] Start: 03-09-2023 Glucose quantitative blood xcpt reagent strip Dolores Cox MD Work Phone: Start: 03-09-2023 Glucose [Mass/volume] in Serum or Plasma [facility] Start: 03-09-2023 ECG 12-LEAD [facility] Start: 03-09-2023 Basic metabolic 2000 panel - Serum or Plasma [facility] Start: 03-09-2023 CBC panel - Blood by Automated count [facility] Start: 03-09-2023 Glucose quantitative blood xcpt reagent strip Dolores Cox MD Work Phone: Start: 03-09-2023 Glucose [Mass/volume] in Serum or Plasma [facility] Start: 03-09-2023 Basic metabolic panel calcium total Alicia Toro ETHNOARCHAEOLOGY PROFESSOR-STORE CUSTODIAN Work Phone: Start: 03-09-2023 Glucose [Mass/volume] in Serum or Plasma [facility] Start: 03-09-2023 Glucose quantitative blood xcpt reagent strip Dolores Cox MD Work Phone: Start: 03-09-2023 Glucose quantitative blood xcpt reagent strip Dolores Cox MD Work Phone: Start: 03-09-2023 POCT GLUCOSE METER [facility] Start: 03-09-2023 Glucose [Mass/volume] in Serum or Plasma [facility] Start: 03-08-2023 Glucose quantitative blood xcpt reagent strip Dolores Cox MD Work Phone: Start: 03-08-2023 Glucose [Mass/volume] in Serum or Plasma [employer] [facility]ME[facility] Start: 03-08-2023 Glucose quantitative blood xcpt reagent strip Dolores Cox MD Work Phone: Start: 03-08-2023 Glucose [Mass/volume] in Serum or Plasma [employer] G[facility]MEZ Start: 03-08-2023 Glucose quantitative blood xcpt reagent strip Dolores Cox MD Work Phone: Start: 03-08-2023 ECG 12-LEAD [employer] [facility] Start: 03-08-2023 Glucose [Mass/volume] in Serum or Plasma [employer] [facility] Start: 03-08-2023 Glucose quantitative blood xcpt reagent strip Dolores Cox MD Work Phone: Start: 03-08-2023 Basic metabolic 2000 panel - Serum or Plasma [facility] Start: 03-08-2023 CBC panel - Blood by Automated count [facility] Start: 03-08-2023 Glucose [Mass/volume] in Serum or Plasma [facility] Start: 03-08-2023 End: 03-08-2023 Basic metabolic panel calcium total Chrissy Harris PA-C Work Phone: Start: 03-08-2023 INSERT URETHRAL CATHETER SHERRY MAGAÑA Start: 03-08-2023 POCT GLUCOSE METER SHERRY MIAMI Start: 03-08-2023 Glucose [Mass/volume] in Serum or Plasma [facility] Start: 03-08-2023 Glucose quantitative blood xcpt reagent strip Karma Sharpe MD Work Phone: Start: 03-07-2023 Glucose [Mass/volume] in Serum or Plasma [facility] Start: 03-07-2023 Glucose quantitative blood xcpt reagent strip Karma Sharpe MD Work Phone: Start: 03-07-2023 Glucose [Mass/volume] in Serum or Plasma SHERRY [facility] Start: 03-07-2023 Glucose quantitative blood xcpt reagent strip Karma Sharpe MD Work Phone: Start: 03-07-2023 Glucose [Mass/volume] in Serum or Plasma [facility] Start: 03-07-2023 Glucose quantitative blood xcpt reagent strip Karma Sharpe MD Work Phone: Start: 03-07-2023 Glucose [Mass/volume] in Serum or Plasma SHERRY MIAMI Start: 03-07-2023 Glucose quantitative blood xcpt reagent strip Karma Sharpe MD Work Phone: Start: 03-07-2023 Basic metabolic 2000 panel - Serum or Plasma SHERRY MIAMI Start: 03-07-2023 CBC panel - Blood by Automated count [facility] Start: 03-07-2023 Glucose [Mass/volume] in Serum or Plasma SHERRY [facility]AM[facility] Start: 03-07-2023 Basic metabolic panel calcium total Chrissy Harris PA-C Work Phone: Start: 03-07-2023 RESPIRATORY CARE EVALUATION ONLY [facility] Start: 03-07-2023 Glucose quantitative blood xcpt reagent strip Karma Sharpe MD Work Phone: Start: 03-07-2023 POCT GLUCOSE METER [facility] Start: 03-07-2023 RESPIRATORY CARE EVALUATION ONLY Karma siegel MD Work Phone: Start: 03-07-2023 Glucose [Mass/volume] in Serum or Plasma [facility] Start: 03-06-2023 Glucose quantitative blood xcpt reagent strip Karma Sharpe MD Work Phone: Start: 03-06-2023 Glucose [Mass/volume] in Serum or Plasma [facility] Start: 03-06-2023 TELEMETRY MONITORING [facility] Start: 03-06-2023 Glucose quantitative blood xcpt reagent strip Karma Sharpe MD Work Phone: Start: 03-06-2023 TRANSFER PATIENT TO NEW UNIT [facility] Start: 03-06-2023 Glucose [Mass/volume] in Serum or Plasma [facility] Start: 03-06-2023 Glucose quantitative blood xcpt reagent strip Karma Sharpe MD Work Phone: Start: 03-06-2023 Glucose [Mass/volume] in Serum or Plasma [facility] Start: 03-06-2023 Glucose quantitative blood xcpt reagent strip Corie Head MD Work Phone: Start: 03-06-2023 Glucose [Mass/volume] in Serum or Plasma [facility] Start: 03-06-2023 XR CHEST 1 VIEW [facility] Start: 03-06-2023 Glucose quantitative blood xcpt reagent strip Corie Head MD Work Phone: Start: 03-06-2023 Radiologic exam chest single view Shona Foster ETHNOARCHAEOLOGY PROFESSOR-STORE CUSTODIAN Work Phone: Start: 03-06-2023 Basic metabolic 2000 panel - Serum or Plasma [facility] Start: 03-06-2023 CBC panel - Blood by Automated count [facility] Start: 03-06-2023 Magnesium [Mass/volume] in Serum or Plasma [facility] Start: 03-06-2023 Phosphate [Mass/volume] in Serum or Plasma [facility] Start: 03-06-2023 Glucose [Mass/volume] in Serum or Plasma [facility] Start: 03-06-2023 Basic metabolic panel calcium total Chrissywilliams Harris PA-C Work Phone: Start: 03-06-2023 Glucose quantitative blood xcpt reagent strip Corie Head MD Work Phone: Start: 03-06-2023 POCT GLUCOSE METER G[facility]ELLAGaz[facility] EntertainmentBAHMAN [employer] Start: 03-06-2023 PT EVAL AND TREAT [facility] Start: 03-06-2023 Glucose [Mass/volume] in Serum or Plasma [facility] Start: 03-05-2023 Glucose quantitative blood xcpt reagent strip Corie Head MD Work Phone: Start: 03-05-2023 Glucose [Mass/volume] in Serum or [facility] Start: 03-05-2023 Glucose quantitative blood xcpt reagent strip Corie Head MD Work Phone: Start: 03-05-2023 Glucose [Mass/volume] in Serum or Plasma [facility] Start: 03-05-2023 Basic metabolic 2000 panel - Serum or Plasma [facility] Start: 03-05-2023 CBC panel - Blood by Automated count [facility] Start: 03-05-2023 Magnesium [Mass/volume] in Serum or Plasma [facility] Start: 03-05-2023 Phosphate [Mass/volume] in Serum or Plasma [facility] Start: 03-05-2023 XR CHEST 1 VIEW [facility] Start: 03-05-2023 POCT GLUCOSE METER WOMERARY MAGAÑA Start: 03-05-2023 MEASURE HEIGHT [facility] Start: 03-05-2023 WEIGH PATIENT [employer] [facility] Start: 03-05-2023 FULL CODE [employer] GroupANA MARIA [employer] Start: 03-05-2023 Glucose quantitative blood xcpt reagent strip Corie Head MD Work Phone: Start: 03-05-2023 ADMIT TO [facility]PATIENT [facility] [facility] Start: 03-05-2023 TRANSFER PATIENT TO NEW [facility] Start: 03-05-2023 Basic metabolic panel calcium total Desmond Tirado PA-C Work Phone: Start: 03-05-2023 Radiologic exam chest single view Desmond Tirado PA-C Work Phone: Start: 03-05-2023 PULSE OXIMETRY, CONTINUOUS [facility] Start: 03-05-2023 SURGICAL PATHOLOGY EXAM [facility] Start: 03-05-2023 PULSE OXIMETRY, CONTINUOUS Serena George DO Work Phone: Start: 03-05-2023 Level iii surg pathology gross&microscopic exam Sherry Magaña MD Work Phone: Start: 03-05-2023 End: 03-05-2023 Unlisted px abdomen musculoskeletal system Sherry Magaña MD Work Phone: Start: 03-05-2023 VERAB/VERIFY ABORH SHERRY MAGAÑA Start: 03-05-2023 XR CHEST 1 VIEW SHERRY MAGAÑA Start: 03-05-2023 VERAB/VERIFY SHAYY Magaña MD Work Phone: Start: 03-05-2023 Radiologic exam chest single view Edmund George DO Work Phone: Start: 03-02-2023 Basic metabolic 2000 panel - Serum or Plasma NO GENERIC PROVIDER Start: 03-02-2023 TYPE AND SCREEN NO GENERIC PROVIDER Start: 03-02-2023 STAPHYLOCOCCUS AUREUS/MRSA COLONIZATION, CULTURE [facility] Start: 02-13-2023 Computed tomography of abdomen and [...] NO GENERIC PROVIDER Start: 01-14-2023 ECG 12-LEAD WOOSBAHMAN [facility]AÑA Start: 01-14-2023 VASC US MESENTERIC ARTERY DUPLEX COMPLETE WOOSBAHMAN [facility] Start: 01-14-2023 Follow-up visit Follow-up SHERRY MAGAÑA Start: 01-13-2023 HCG, URINE, QUALITATIVE [facility]UP [facility] Start: 01-13-2023 URINALYSIS WITH REFLEX MICROSCOPIC [facility]ANI [facility] Start: 01-13-2023 CBC W Auto Differential panel - Blood [facility] Start: 01-13-2023 Comprehensive metabolic 2000 panel - Serum or Plasma [facility] Start: 11-26-2022 Dup-scan artl tiara abdl/pel/scrot&/rpr orgn com Deacon Kat MD Work Phone: Start: 11-11-2022 Antibody screen JAQUAN MORROW Comment on above: Order Comment: Specimen Type: BLOOD SPEC IMENOrdering Facility: [facility] Address: [address] [place], [place] [id number] Performed By: #### T SCR ####OSVALDO BLOOD BANKIA [id number] [address] Start: 11-11-2022 Ercp dx collection specimen brushing/washing [...] Phone: Start: 10-31-2022 Urinalysis microscopic only Jalyn Galvan Iq bal DO Work Phone: Start: 10-31-2022 Urnls dip stick/tablet rgnt auto w/o microscopy Jalyn Galvan Suresh DO Work Phone: Start: 10-31-2022 Radex spine lumbosacral minimum 4 views Jalyn J Suresh DO Work Phone: Start: 10-31-2022 Comprehensive metabolic panel Jalyn Galvan Demetrice DO Work Phone: Start: 10-27-2022 Esophagogastroduodenoscopy transoral diagnostic Jaquan Morrow Start: 10-26-2022 Thyrotropin [Units/volume] in Serum or Plasma Sherry Magaña MD Work Phone: Start: 06-24-2022 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 Breanna Stern ETHNOARCHAEOLOGY PROFESSOR.STORE CUSTODIAN Work Phone: Start: 03-06-2022 Esophagoscp rig transoral hypopharynx crv esoph Breanna Stern ETHNOARCHAEOLOGY PROFESSOR.STORE CUSTODIAN Work Phone: Start: 01-29-2022 Revision - value (qualifier value) Ashutosh Albright Comment on above: gastric sleeve revision Start: 01-28-2022 Antibody screen Pacc 2 Work Phone: Start: 01-28-2022 Ecg routine ecg w/least 12 lds trcg only w/o i&r [facility] Provider Start: 12-25-2021 Esophagoscp rig transoral hypopharynx crv juanoph Deacon Kat MD Work Phone: Start: 08-30-2021 [...] Phone: Start: 11-04-2020 Hysterectomy Ashutosh Albright Start: 07-02-2020 Us pelvic nonobstetric real-time image complete Juanito Laird PA-C Work Phone: Start: 07-02-2020 Blood typing serologic abo Juanito aguilar PA-C Work Phone: Start: 07-02-2020 Complete blood count with white cell differential, automated Juanito Laird PA-C Work Phone: Start: 07-02-2020 Comprehensive metabolic panel Juanito richards PA-C Work Phone: Start: 07-02-2020 Ct abdomen & pelvis w/o contrast material Juanito Laird PA-C Work Phone: Start: 07-02-2020 Gonadotropin chorionic qualitative Vaughn Ceja MD Work Phone: Start: 07-02-2020 Urinalysis microscopic only Vaughn gay MD Work Phone: Start: 07-02-2020 Urinalysis, reagent strip without microscopy Vaughn Ceja MD Work Phone: Start: 01-30-2020 Computed tomography of abdomen and pelvis with contrast Agustin Hai Sj Work Phone: Start: 01-30-2020 Albumin serum plasma/whole blood Agustin Hai Sj Work Phone: Start: 01-30-2020 Assay of lipase Agustin Hai Sj Work Phone: Start: 01-30-2020 Complete blood count with white cell differential, automated Agustin Gustafson Work Phone: Start: 01-30-2020 Creatinine blood Agustin Gustafson Work Phone: Start: 01-30-2020 Choriogonadotropin ( test) [Presence] in Urine Agustin Gustafson Work Phone: Start: 01-30-2020 Urinalysis, reagent strip without microscopy Agustin Gustafson Work Phone: Appendectomy Rajni Rouse Cholecystectomy Rajni Rouse Colonoscopy Rajni Rouse H/O: surgery S/P gastric surgery Nahed Tamez RD Work Phone: H/O: surgery Status post surgery Jaquan stover H/O: surgery History of sphincterotomy of sphincter of Oddi Deacon Kat MD Work Phone: History of cholecystectomy Histo ry of cholecystectomy Deacon Kat MD Work Phone: History of cholecystectomy Histo ry of cholecystectomy [facility] Work Phone: Plan of Treatment Date Care Activity Detail Author Start: 2039 Zoster Vaccines (1 of 2) Zoster Vaccines (1 of 2) [facility] Start: 09-21-2026 DTaP/Tdap/Td vaccine (2 - Td or Tdap) DTaP/Tdap/Td vaccine (2 - Td or Tdap) [facility] Start: 09-21-2026 DTaP/Tdap/Td Vaccines (2 - Td or Tdap) DTaP/Tdap/Td Vaccines (2 - Td or Tdap) [facility] Start: 09-21-2026 Tetanus vaccination [facility] Start: 09-21-2026 Urine microalbumin profile [facility] Start: 08-08-2024 BP Controlled (<130/80) BP Controlled (<130/80) [facility] Start: 07-02-2024 Diabetes mellitus screening Diabetes Screening [facility] Start: 04-27-2024 BP Controlled (<130/80) BP Controlled (<130/80) [facility] Start: 03-10-2024 Diabetes mellitus screening Diabetes Screening [facility] Start: 12-05-2023 BP Controlled (<130/80) BP Controlled (<130/80) [facility] Start: 11-27-2023 BP Controlled (<130/80) BP Controlled (<130/80) [facility] Start: 10-27-2023 Thyroid stimulating hormone measurement TSH Level [facility] Start: 10-13-2023 End: 10-13-2023 Patient encounter procedure 10/13/2023 1:00 PM EDT Office Visit Gastroenterology [address] [id number] Georgina Barkley MD [facility] [address] [place], [place] [id number] cgrt page [id number] Gastroenterology Comment on above: cgrt page [id number] Start: 10-13-2023 End: 10-13-2023 ambulatory 10/13/2023 12:00 PM EDT Education Gastroenterology [address] [address] Dietitian, Cgrt [address] [place] [address] cgrt page [id number] Gastroenterology Comment on above: cgrt page [id number] Start: 09-08-2023 End: 09-08-2023 Patient encounter procedure 09/08/2023 10:40 AM EDT Office Visit Gastroenterology [address] [address] Kasie Avalos MD [address] [place] [address] 3 month f/u Gastroenterology Comment on above: 3 month f/u Start: 09-03-2023 End: 09-03-2023 Patient encounter procedure 09/03/2023 12:45 PM EDT Office Visit Pulmonary Medicine [address] [place] [address] Alan Jurado MD [address] [place] [address] Follow-up of left lower lobe pneumonia Pulmonary Medicine Comment on above: Follow-up of left lower lobe pneumonia Start: 08-30-2023 End: 08-30-2023 Nursing evaluation of patient and report 08/30/2023 8:00 AM EDT Nurse Visit Gastroenterology [address] [address] Lab, Nurse Gi I [address] [place] [address] Gastroesophageal reflux disease, unspecified whether esophagitis present [K21.9] Gastroenterology Comment on above: Gastroesophageal reflux disease, unspeci fied whether esophagitis present [K21.9] Start: 08-26-2023 End: 08-26-2023 Nursing evaluation of patient and report 08/26/2023 3:00 PM EDT Nurse Visit Gastroenterology [address] [address] 2, Nurse Gi Lab [address] [place] [address] Gastroesophageal reflux disease, unspecified whether esophagitis present [K21.9] Gastroenterology Comment on above: Gastroesophageal reflux disease, unspeci fied whether esophagitis present [K21.9] Start: 08-26-2023 End: 08-26-2023 Patient encounter procedure 08/26/2023 3:00 PM EDT Appointment Gastroenterology [address] [place] [phone] [place] [address] [place] [address] Gastroesophageal reflux disease, unspecified whether esophagitis present [K21.9] Gastroenterology Comment on above: Gastroesophageal reflux disease, unspeci fied whether esophagitis present [K21.9] Start: 08-09-2023 End: 08-09-2023 Patient encounter procedure 08/09/2023 2:00 PM EDT Office Visit Pain Management [address] [facility] [address] [place], [place] [phone] Vic Ramos MD [address] [place] [address] [place] [address] follow up Pain Management Comment on above: follow up Start: 08-09-2023 End: 08-09-2023 Follow-up encounter 08/09/2023 9:00 AM EDT [facility] Neurology [address] [place] [address] [place] [address] [place] [address] follow up Neurology Comment on above: follow up Start: 08-04-2023 End: 08-04-2023 Patient encounter procedure 08/04/2023 9:00 AM EDT Office Visit Pain Management [address] [place] [address] Boogie Murguia MD [address] [place] [phone] medication refill (ketamine) Pain Management Comment on above: medication refill (ketamine) Start: 07-28-2023 End: 07-28-2023 Patient encounter procedure 07/28/2023 10:00 AM EDT Office Visit Gastroenterology [address] [address] Kasie Avalos MD [address] [place], [place] [phone] 3 month f/u Gastroenterology Comment on above: 3 month f/u Start: 07-22-2023 End: 07-22-2023 Patient encounter procedure 07/22/2023 9:30 AM EDT Office Visit Colorectal Surgery [address] [address] La Montes De Oca, SLIM.STORE CUSTODIAN [address] [place] [address] Constipation, unspecified constipation type [K59.00] Colorectal Surgery Comment on above: Constipation, unspecified constipation t ype [K59.00] Start: 07-22-2023 End: 07-22-2023 Admission to same day surgery center 07/22/2023 9:00 AM EDT Procedure Colorectal Surgery [address] [address] La Montes De Oca, SLIM.STORE CUSTODIAN [address] [place] [address] Constipation, unspecified constipation type [K59.00] Colorectal Surgery Comment on above: Constipation, unspecified constipation t ype [K59.00] Start: 07-22-2023 End: 07-22-2023 Nursing evaluation of patient and report 07/22/2023 8:00 AM EDT Nurse Visit Gastroenterology [address] [address] Lab, Nurse Gi I [address] [place] [address] Gastroesophageal reflux disease, unspecified whether esophagitis present [K21.9] Gastroenterology Comment on above: Gastroesophageal reflux disease, unspeci fied whether esophagitis present [K21.9] Start: 07-20-2023 End: 07-20-2023 Professional / ancillary services management 07/20/2023 2:00 PM EDT Ancillary Procedure [facility] [address] [phone] [facility] Start: 07-20-2023 End: 07-20-2023 Nursing evaluation of patient and report 07/20/2023 1:30 PM EDT Nurse Visit Gastroenterology [address] [address] Lab, Nurse Gi I [address] [facility] [place] [address] Gastroesophageal reflux disease, unspecified whether esophagitis present [K21.9] Gastroenterology Comment on above: Gastroesophageal reflux disease, unspeci fied whether esophagitis present [K21.9] Start: 07-20-2023 End: 07-20-2023 Patient encounter procedure Gastroenterology Comment on above: Gastroesophageal reflux disease, unspeci fied whether esophagitis present [K21.9] Start: 07-17-2023 [facility] Start: 07-17-2023 Referral to general surgeon [facility] Start: 07-17-2023 Hospital admission [facility] Start: 07-15-2023 End: 07-15-2023 Patient encounter procedure 07/15/2023 3:15 PM EDT Office Visit Pain Management [address] [place] [address] Vic Ramos MD [address] [facility] [place] [address] est Pain Management Comment on above: est Start: 07-15-2023 End: 07-15-2023 Patient encounter procedure 07/15/2023 7:30 AM EDT Office Visit Pain Management [address] [place] [address] May Ramey APRN.STORE CUSTODIAN [address] [facility] [address] [place] [address] Needs medication, unknown who can order Pain Management Comment on above: Needs medication, unknown who can order Start: 07-09-2023 End: 07-09-2023 Follow-up encounter 07/09/2023 9:00 AM EDT [facility] Neurology [address] [facility] [address] [place] [address] Pablo Lebron, [facility] [address] [place] [address] follow up Neurology Comment on above: follow up Start: 07-07-2023 End: 07-07-2023 Patient encounter procedure 07/07/2023 10:30 AM EDT Office Visit Colorectal Surgery [address] [address] Vonda Hercules PA-C [address] [place] [address] Constipation, unspecified constipation type [K59.00] Colorectal Surgery Comment on above: Constipation, unspecified constipation t ype [K59.00] Start: 07-07-2023 End: 07-07-2023 Admission to same day surgery center 07/07/2023 10:00 AM EDT Procedure Colorectal Surgery [address] [address] Vonda Hercules PA-C [address] [place], [place] [phone] Constipation, unspecified constipation type [K59.00] Colorectal Surgery Comment on above: Constipation, unspecified constipation t ype [K59.00] Start: 06-23-2023 End: 06-23-2023 Patient encounter procedure 06/23/2023 9:00 AM EDT Office Visit Plastic Surgery [address] [address] Juana Padilla APRN.STORE CUSTODIAN [address] [place] [address] CONSULT FOR SKIN REMOVAL WEIGHT LOSS SURGERY PROVIDER LISSET KAT 01/2022 @ [facility] Plastic Surgery Comment on above: CONSULT FOR SKIN REMOVAL WEIGHT LOSS RED [place] PROVIDER LISSET KAT, 01/2022 @ [facility] Start: 06-18-2023 End: 06-18-2023 Follow-up encounter 06/18/2023 4:00 PM EDT [facility] Pain Management [address] [address] Vic Ramos MD [address] [facility] [place] [address] Hospital Follow Up chronic pain Pain Management Comment on above: Hospital Follow Up chronic pain Start: 06-18-2023 End: 06-18-2023 Patient encounter procedure 06/18/2023 10:00 AM EDT [facility] [address] [facility] [address] [address] Breanna Stern APRN.STORE CUSTODIAN [address] [place] [address] Post PEG-J placement General Surgery Comment on above: Post PEG-J placement Start: 06-15-2023 End: 06-15-2023 Patient encounter procedure 06/15/2023 11:00 AM EDT Office Visit General Surgery [address] [address] Breanna Stern APRN.STORE CUSTODIAN [address] [place] [address] Post PEG-J placement General Surgery Comment on above: Post PEG-J placement Start: 06-13-2023 BP CONTROLLED (<130/80) BP CONTROLLED (<130/80) [facility] in Start: 05-30-2023 Bacteria identified in Urine by Culture [facility] Start: 04-12-2023 End: 04-12-2023 Telemedicine consultation with patient 04/12/2023 9:00 AM EST Telemedicine [facility] [address] [address] [place] [address] [place] [address] [place] [address] [facility] Tyreeilirashawn Start: 11-23-2022 End: 11-24-2023 US MESENTERIC ARTERY CMPLT VAS LAB US MESENTERIC ARTERY CMPLT VAS LAB Vascular Lab TOÑITO Chronic nausea RUQ pain Expected: 11/23/2022, Expires: 11/24/2023 [facility] Work Phone: Comment on above: Expected: 11/23/2022, Expires: Start: 11-18-2022 End: 01-18-2023 25-hydroxyvitamin D3 [Mass/volume] in Serum or Plasma VITAMIN D 25 HYDROXY Lab Routine S/P bariatric surgery Impaired intestinal absorption Expected: 11/18/2022 (Approximate), Expires: 01/18/2023 [facility] Work Phone: Comment on above: Expected: 11/18/2022 (Approximate), Expi res: 01/18/2023 Start: 11-18-2022 End: 01-18-2023 CBC panel - Blood by Automated count CBC Lab Routine S/P bariatric surgery Impaired intestinal absorption Expected: 11/18/2022 (Approximate), Expires: 01/18/2023 [facility] Work Phone: Comment on above: Expected: 11/18/2022 (Approximate), Expi res: 01/18/2023 Start: 11-18-2022 End: 01-18-2023 Cobalamin (Vitamin B12) [Mass/volume] in Serum or Plasma VITAMIN B12 BLOOD Lab Routine S/P bariatric surgery Impaired intestinal absorption Expected: 11/18/2022 (Approximate), Expires: 01/18/2023 [facility] Work Phone: Comment on above: Expected: 11/18/2022 (Approximate), Expi res: 01/18/2023 Start: 11-18-2022 End: 01-18-2023 Comprehensive metabolic 2000 panel - Serum or Plasma COMP METABOLIC PANEL Lab Routine S/P bariatric surgery Impaired intestinal absorption Expected: 11/18/2022 (Approximate), Expires: 01/18/2023 [facility] Work Phone: Comment on above: Expected: 11/18/2022 (Approximate), Expi res: 01/18/2023 Start: 11-18-2022 End: 01-18-2023 Ferritin [Mass/volume] in Serum or Plasma FERRITIN BLD Lab Routine S/P bariatric surgery Impaired intestinal absorption Expected: 11/18/2022 (Approximate), Expires: 01/18/2023 [facility] Work Phone: Comment on above: Expected: 11/18/2022 (Approximate), Expi res: 01/18/2023 Start: 11-18-2022 End: 01-18-2023 Folate [Mass/volume] in Serum or Plasma FOLATE SERUM Lab Routine S/P bariatric surgery Impaired intestinal absorption Expected: 11/18/2022 (Approximate), Expires: 01/18/2023 [facility] Work Phone: Comment on above: Expected: 11/18/2022 (Approximate), Expi res: 01/18/2023 Start: 11-18-2022 End: 01-18-2023 Iron and Iron binding capacity panel - Serum or Plasma IRON + TIBC Lab Routine S/P bariatric surgery Impaired intestinal absorption Expected: 11/18/2022 (Approximate), Expires: 01/18/2023 [facility] Work Phone: Comment on above: Expected: 11/18/2022 (Approximate), Expi res: 01/18/2023 Start: 11-18-2022 End: 01-18-2023 Parathyrin.intact [Mass/volume] in Serum or Plasma PTH INTACT BLD Lab Routine S/P bariatric surgery Impaired intestinal absorption Expected: 11/18/2022 (Approximate), Expires: 01/18/2023 [facility] Work Phone: Comment on above: Expected: 11/18/2022 (Approximate), Expi res: 01/18/2023 Start: 11-18-2022 End: 01-18-2023 Retinol [Mass/volume] in Serum or Plasma VITAMIN A/RETINOL Lab Routine S/P bariatric surgery Impaired intestinal absorption Expected: 11/18/2022 (Approximate), Expires: 01/18/2023 [facility] Work Phone: Comment on above: Expected: 11/18/2022 (Approximate), Expi res: 01/18/2023 Start: 11-18-2022 End: 01-18-2023 VITAMIN B1 (THIAMINE), WHOLE BLOOD VITAMIN B1 (THIAMINE), WHOLE BLOOD Lab Routine S/P bariatric surgery Impaired intestinal absorption Expected: 11/18/2022 (Approximate), Expires: 01/18/2023 [facility] Work Phone: Comment on above: Expected: 11/18/2022 (Approximate), Expi res: 01/18/2023 Start: 11-18-2022 End: 01-18-2023 Zinc [Mass/volume] in Serum or Plasma ZINC BLD Lab Routine S/P bariatric surgery Impaired intestinal absorption Expected: 11/18/2022 (Approximate), Expires: 01/18/2023 [facility] Work Phone: Comment on above: Expected: 11/18/2022 (Approximate), Expi res: 01/18/2023 Start: 11-04-2022 End: 01-04-2023 Amylase [Enzymatic activity/volume] in Serum or Plasma [facility] Work Phone: Comment on above: Expected: 11/04/2022, Expires: Start: 11-04-2022 End: 01-04-2023 Lipase [Enzymatic activity/volume] in Serum or Plasma [facility] Work Phone: Comment on above: Expected: 11/04/2022, Expires: 3 Start: 10-16-2022 Covid-19 Vaccine () Covid-19 Vaccine () [facility] Start: 10-16-2022 Influenza vaccination [facility] Start: 09-15-2022 Influenza vaccination Flu vaccine (#1) [facility] Start: 07-28-2022 End: 09-27-2022 CBC W Auto Differential panel - Blood CBC + DIFF Lab Routine Rash and nonspecific skin eruption Expected: 07/28/2022, Expires: 09/27/2022 [facility] Work Phone: Comment on above: Expected: 07/28/2022, Expires: 3 Start: 07-28-2022 End: 09-27-2022 Comprehensive metabolic 2000 panel - Serum or Plasma COMP METABOLIC PANEL Lab Routine Rash and nonspecific skin eruption Facial edema Expected: 07/28/2022, Expires: 09/27/2022 [facility] Work Phone: Comment on above: Expected: 07/28/2022, Expires: 3 Start: 06-12-2022 End: 08-12-2022 MISAEL BY IFA WITH REFLEX [facility] Work Phone: Comment on above: Expected: 06/12/2022, Expires: 3 Start: 06-12-2022 End: 08-12-2022 Borrelia burgdorferi IgG and IgM panel - Serum [facility] Work Phone: Comment on above: Expected: 06/12/2022, Expires: 3 Start: 06-12-2022 End: 08-12-2022 Cyclic citrullinated peptide IgG Ab [Units/volume] in Serum or Plasma [facility] Work Phone: Comment on above: Expected: 06/12/2022, Expires: 3 Start: 06-12-2022 End: 08-12-2022 MONOCLONAL PROTEIN, SERUM (BLOOD) [facility] Work Phone: Comment on above: Expected: 06/12/2022, Expires: 3 Start: 06-12-2022 End: 08-12-2022 Niacin [Mass/volume] in Serum or Plasma [facility] Work Phone: Comment on above: Expected: 06/12/2022, Expires: 3 Start: 06-12-2022 End: 08-12-2022 PROTEIN ELECTROPHORESIS SERUM W/INTERP [facility] Work Phone: Comment on above: Expected: 06/12/2022, Expires: 3 Start: 06-12-2022 End: 08-12-2022 Pyridoxine [Mass/volume] in Serum or Plasma [facility] Work Phone: Comment on above: Expected: 06/12/2022, Expires: 3 Start: 06-12-2022 End: 08-12-2022 VITAMIN B1 (THIAMINE), WHOLE BLOOD [facility] Work Phone: Comment on above: Expected: 06/12/2022, Expires: 3 Start: 05-03-2022 End: 07-03-2022 25-hydroxyvitamin D3 [Mass/volume] in Serum or Plasma VITAMIN D 25 HYDROXY Lab Routine S/P gastric bypass Postoperative malabsorption Expected: 05/03/2022 (Approximate), Expires: 07/03/2022 [facility] Work Phone: Comment on above: Expected: 05/03/2022 (Approximate), Expi res: 07/03/2022 Start: 05-03-2022 End: 07-03-2022 CBC panel - Blood by Automated count CBC Lab Routine S/P gastric bypass Postoperative malabsorption Expected: 05/03/2022 (Approximate), Expires: 07/03/2022 [facility] Work Phone: Comment on above: Expected: 05/03/2022 (Approximate), Expi res: 07/03/2022 Start: 05-03-2022 End: 07-03-2022 Cobalamin (Vitamin B12) [Mass/volume] in Serum or Plasma VITAMIN B12 BLOOD Lab Routine S/P gastric bypass Postoperative malabsorption Expected: 05/03/2022 (Approximate), Expires: 07/03/2022 [facility] Work Phone: Comment on above: Expected: 05/03/2022 (Approximate), Expi res: 07/03/2022 Start: 05-03-2022 End: 07-03-2022 Comprehensive metabolic 2000 panel - Serum or Plasma COMP METABOLIC PANEL Lab Routine S/P gastric bypass Postoperative malabsorption Expected: 05/03/2022 (Approximate), Expires: 07/03/2022 [facility] Work Phone: Comment on above: Expected: 05/03/2022 (Approximate), Expi res: 07/03/2022 Start: 05-03-2022 End: 07-03-2022 Ferritin [Mass/volume] in Serum or Plasma FERRITIN BLD Lab Routine S/P gastric bypass Postoperative malabsorption Expected: 05/03/2022 (Approximate), Expires: 07/03/2022 [facility] Work Phone: Comment on above: Expected: 05/03/2022 (Approximate), Expi res: 07/03/2022 Start: 05-03-2022 End: 07-03-2022 Folate [Mass/volume] in Serum or Plasma FOLATE SERUM Lab Routine S/P gastric bypass Postoperative malabsorption Expected: 05/03/2022 (Approximate), Expires: 07/03/2022 [facility] Work Phone: Comment on above: Expected: 05/03/2022 (Approximate), Expi res: 07/03/2022 Start: 05-03-2022 End: 07-03-2022 Iron and Iron binding capacity panel - Serum or Plasma IRON + TIBC Lab Routine S/P gastric bypass Postoperative malabsorption Expected: 05/03/2022 (Approximate), Expires: 07/03/2022 [facility] Work Phone: Comment on above: Expected: 05/03/2022 (Approximate), Expi res: 07/03/2022 Start: 05-03-2022 End: 07-03-2022 Parathyrin.intact [Mass/volume] in Serum or Plasma PTH INTACT BLD Lab Routine S/P gastric bypass Postoperative malabsorption Expected: 05/03/2022 (Approximate), Expires: 07/03/2022 [facility] Work Phone: Comment on above: Expected: 05/03/2022 (Approximate), Expi res: 07/03/2022 Start: 05-03-2022 End: 07-03-2022 Thyrotropin [Units/volume] in Serum or Plasma TSH BLD Lab Routine S/P gastric bypass Postoperative malabsorption Expected: 05/03/2022 (Approximate), Expires: 07/03/2022 [facility] Work Phone: Comment on above: Expected: 05/03/2022 (Approximate), Expi res: 07/03/2022 Start: 05-03-2022 End: 07-03-2022 VITAMIN B1 (THIAMINE), WHOLE BLOOD VITAMIN B1 (THIAMINE), WHOLE BLOOD Lab Routine S/P gastric bypass Postoperative malabsorption Expected: 05/03/2022 (Approximate), Expires: 07/03/2022 [facility] Work Phone: Comment on above: Expected: 05/03/2022 (Approximate), Expi res: 07/03/2022 Start: 12-25-2021 End: 12-17-2022 PH HUERTA INSERT OFF MEDS PH HUERTA INSERT OFF MEDS Endoscopy Routine Regurgitation of food Gastroesophageal reflux disease, unspecified whether esophagitis present Expected: 12/25/2021, Expires: 12/17/2022 [facility] Work Phone: Comment on above: Expected: 12/25/2021, Expires: Start: 10-16-2021 Influenza vaccination [facility] Start: 10-09-2021 End: 12-09-2021 25-hydroxyvitamin D3 [Mass/volume] in Serum or Plasma VITAMIN D 25 HYDROXY Lab Routine S/P laparoscopic sleeve gastrectomy Expected: 10/09/2021, Expires: 12/09/2021 [facility] Work Phone: Comment on above: Expected: 10/09/2021, Expires: 2 Start: 10-09-2021 End: 12-09-2021 Cobalamin (Vitamin B12) [Mass/volume] in Serum or Plasma VITAMIN B12 BLOOD Lab Routine S/P laparoscopic sleeve gastrectomy Expected: 10/09/2021, Expires: 12/09/2021 [facility] Work Phone: Comment on above: Expected: 10/09/2021, Expires: 2 Start: 10-09-2021 End: 12-09-2021 Ferritin [Mass/volume] in Serum or Plasma FERRITIN BLD Lab Routine S/P laparoscopic sleeve gastrectomy Expected: 10/09/2021, Expires: 12/09/2021 [facility] Work Phone: Comment on above: Expected: 10/09/2021, Expires: 2 Start: 10-09-2021 End: 12-09-2021 Folate [Mass/volume] in Serum or Plasma FOLATE SERUM Lab Routine S/P laparoscopic sleeve gastrectomy Expected: 10/09/2021, Expires: 12/09/2021 [facility] Work Phone: Comment on above: Expected: 10/09/2021, Expires: 2 Start: 10-09-2021 End: 12-09-2021 Hemoglobin A1c in Blood HGB A1C Lab Routine S/P laparoscopic sleeve gastrectomy Expected: 10/09/2021, Expires: 12/09/2021 [facility] Work Phone: Comment on above: Expected: 10/09/2021, Expires: 2 Start: 10-09-2021 End: 12-09-2021 Iron and Iron binding capacity panel - Serum or Plasma IRON + TIBC Lab Routine S/P laparoscopic sleeve gastrectomy Expected: 10/09/2021, Expires: 12/09/2021 [facility] Work Phone: Comment on above: Expected: 10/09/2021, Expires: 2 Start: 10-09-2021 End: 12-09-2021 Lipid 1996 panel - Serum or Plasma LIPID PANEL BASIC Lab Routine S/P laparoscopic sleeve gastrectomy Expected: 10/09/2021, Expires: 12/09/2021 [facility] Work Phone: Comment on above: Expected: 10/09/2021, Expires: 2 Start: 10-09-2021 End: 12-09-2021 Parathyrin.intact [Mass/volume] in Serum or Plasma PTH INTACT BLD Lab Routine S/P laparoscopic sleeve gastrectomy Expected: 10/09/2021, Expires: 12/09/2021 [facility] Work Phone: Comment on above: Expected: 10/09/2021, Expires: 2 Start: 10-09-2021 End: 12-09-2021 Thyrotropin [Units/volume] in Serum or Plasma TSH BLD Lab Routine S/P laparoscopic sleeve gastrectomy Expected: 10/09/2021, Expires: 12/09/2021 [facility] Work Phone: Comment on above: Expected: 10/09/2021, Expires: 2 Start: 10-09-2021 End: 12-09-2021 VITAMIN B1 (THIAMINE), WHOLE BLOOD VITAMIN B1 (THIAMINE), WHOLE BLOOD Lab Routine S/P laparoscopic sleeve gastrectomy Expected: 10/09/2021, Expires: 12/09/2021 [facility] Work Phone: Comment on above: Expected: 10/09/2021, Expires: 2 Start: 06-23-2021 End: 06-23-2021 Patient encounter procedure 06/23/2021 Office Visit Sports Medicine Belen Stovall MD [id number] [address] Sports Medicine Outpatient Care [facility] Start: 04-15-2021 COVID-19 VACCINE (3 - Booster for Woo series) COVID-19 VACCINE (3 - Booster for Woo series) [facility] Start: 10-16-2020 Influenza vaccination [facility] Start: 10-17-2019 Influenza [facility] 2019 HPV TESTING HPV TESTING [facility] Start: 2019 Screening for malignant neoplasm of cervix [facility] Start: 2010 PAP TESTING PAP TESTING [facility] Start: 2010 Screening for malignant neoplasm of cervix [facility] Start: 2008 DTaP/Tdap/Td vaccine (1 - Tdap) DTaP/Tdap/Td vaccine (1 - Tdap) [facility] [employer] Phone: Start: 2008 Hepatitis A Vaccines (1 of 2 - Risk 2-dose series) Hepatitis A Vaccines (1 of 2 - Risk 2-dose series) [facility] Start: 2008 Hepatitis B Vaccine (1 of 3 - 19+ 3-dose series) Hepatitis B Vaccine (1 of 3 - 19+ 3-dose series) [facility] Start: 2008 Hepatitis B Vaccines (1 of 3 - 19+ 3-dose series) Hepatitis B Vaccines (1 of 3 - 19+ 3-dose series) [facility] Start: 2008 Third diphtheria, tetanus and acellular pertussis (DTaP) vaccination TDAP (ADULT) [facility] Start: 2008 Urine microalbumin profile DTAP,TDAP,TD (1 - Tdap) [facility] Start: 2007 ANNUAL PCP TEAM CHRONIC DISEASE VISIT ANNUAL PCP TEAM CHRONIC DISEASE VISIT [facility] Start: 2007 BP CONTROLLED (<130/80) BP CONTROLLED (<130/80) [facility] Start: 2007 HEPATITIS C SCREENING HEPATITIS C SCREENING [facility] Start: 2007 Hepatitis C screening [facility] Start: 2007 HIV SCREENING HIV SCREENING [facility] Start: 2007 HIV screening HIV Screening [facility] Start: 2007 SPIROMETRY SPIROMETRY [facility] Start: 2007 Tetanus vaccination TETANUS [facility] Start: 2004 HIV screening [facility] Start: 2002 HIV screening HIV SCREENING DISCUSSION [facility] Start: 2002 Varicella vaccination Varicella Vaccines (1 of 2 - 13+ 2-dose series) [facility] Start: 2001 COVID-19 VACCINE (1) COVID-19 VACCINE (1) [facility] Start: 2001 Depression Screen Depression Screen [facility] Start: 1995 PNEUMOCOCCAL (1 - PCV) PNEUMOCOCCAL (1 - PCV) [facility] Start: 1995 Pneumococcal vaccination Pneumococcal Vaccine (1 - PCV) [facility] Start: 1995 Pneumococcal Vaccine: Pediatrics (0 to 5 Years) and At-Risk Patients (6 to 64 Years) (1 of 2 - PCV) Pneumococcal Vaccine: Pediatrics (0 to 5 Years) and At-Risk Patients (6 to 64 Years) (1 of 2 - PCV) [facility] Start: 1990 MMR Vaccines (1 of 1 - Standard series) MMR Vaccines (1 of 1 - Standard series) [facility] Start: 1990 Varicella vaccination Varicella Vaccines (1 of 2 - 2-dose childhood series) [facility] Start: 1990 Varicella vaccine (1 of 2 - 2-dose childhood series) Varicella vaccine (1 of 2 - 2-dose childhood series) [facility] Start: 1989 HEPATITIS B (1 of 3 - 3-dose series) HEPATITIS B (1 of 3 - 3-dose series) [facility] Start: 1989 Hepatitis B Vaccine (1 of 3 - 3-dose series) Hepatitis B Vaccine (1 of 3 - 3-dose series) [facility] Start: 1989 Hepatitis B Vaccines (1 of 3 - 3-dose series) Hepatitis B Vaccines (1 of 3 - 3-dose series) [facility] Start: 1989 Hepatitis C antibody, confirmatory test HEPATITIS C VIRUS SCREENING [facility] Start: 1989 Hepatitis C screening [facility] Start: 1989 HIV screening HIV Screening [facility] Start: 1989 Lipid panel Lipid Panel [facility] Start: 1989 Thyroid stimulating hormone measurement TSH [facility] Start: 1989 TSH Qn TSH [facility] Start: 1989 Yearly Adult Physical Yearly Adult Physical [facility] End: 07-23-2023 [facility]ULT [place] [facility]ULT [place] [facility] Endoscopy Routine Constipation, unspecified constipation type 1 Occurrences starting 07/22/2022 until 07/23/2023 [facility] Work Phone: Comment on above: 1 Occurrences starting 07/22/2022 until 07/23/2023 End: 03-23-2023 Basic metabolic 2000 panel - Serum or Plasma Basic Metabolic Panel Lab Routine Morning draw (Lab) for 3 Occurrences starting 03/21/2023 until 03/23/2023 [facility] Work Phone: Comment on above: Morning draw (Lab) for 3 Occurrences sta rting 03/21/2023 until 03/23/2023 End: 03-12-2023 CBC panel - Blood by Automated count CBC Lab Routine Morning draw (Lab) for 3 Occurrences starting 03/10/2023 until 03/12/2023, 1 completed [facility] Work Phone: Comment on above: Morning draw (Lab) for 3 Occurrences sta rting 03/10/2023 until 03/12/2023, 1 completed End: 03-23-2023 CBC panel - Blood by Automated count CBC Lab Routine Morning draw (Lab) for 3 Occurrences starting 03/21/2023 until 03/23/2023 [facility] Work Phone: Comment on above: Morning draw (Lab) for 3 Occurrences sta rting 03/21/2023 until 03/23/2023 End: 03-16-2023 CBC W Auto Differential panel - Blood CBC and Auto Differential Lab STAT Once (Lab) for 1 Occurrences starting 03/16/2023 until 03/16/2023 [facility] Work Phone: Comment on above: Once (Lab) for 1 Occurrences starting until 03/16/2023 End: 03-16-2023 Comprehensive metabolic 2000 panel - Serum or Plasma Comprehensive metabolic panel Lab STAT STAT (Lab) for 1 Occurrences starting 03/16/2023 until 03/16/2023 [facility] Work Phone: Comment on above: STAT (Lab) for 1 Occurrences starting until 03/16/2023 End: 01-03-2024 Ct angio abd&plvis cntrst mtrl w/wo cntrst img CTA ABD/PEL W IVCON Radiology Routine Generalized abdominal pain 1 Occurrences starting 12/04/2022 until 01/03/2024 [facility] Work Phone: Comment on above: 1 Occurrences starting 12/04/2022 until 01/03/2024 ECG 12 Lead ECG 12 Lead ECG STAT As needed until discontinued starting 06/29/2023 [facility] Work Phone: Comment on above: As needed until discontinued starting ECG 12 Lead ECG 12 Lead ECG STAT 06/29/2023 8:[address] [facility] Work Phone: End: 01-28-2023 ECG COMPLETE ECG COMPLETE ECG Routine Pre-op evaluation 1 Occurrences starting 01/28/2022 until 01/28/2023 [facility] Work Phone: Comment on above: 1 Occurrences starting 01/28/2022 until 01/28/2023 End: 11-17-2022 EGD - THERAPEUTIC, EUS, OR TUBE INTERVENTIONS EGD - THERAPEUTIC, EUS, OR TUBE INTERVENTIONS Endoscopy Routine Gastroesophageal reflux disease without esophagitis 1 Occurrences starting 11/17/2021 until 11/17/2022 [facility] Work Phone: Comment on above: 1 Occurrences starting 11/17/2021 until 11/17/2022 End: 03-05-2023 EGD - THERAPEUTIC, EUS, OR TUBE INTERVENTIONS EGD - THERAPEUTIC, EUS, OR TUBE INTERVENTIONS Endoscopy Routine Esophageal dysphagia S/P gastric bypass 1 Occurrences starting 03/05/2022 until 03/05/2023 [facility] Work Phone: Comment on above: 1 Occurrences starting 03/05/2022 until 03/05/2023 End: 04-27-2024 EGD - THERAPEUTIC, EUS, OR TUBE INTERVENTIONS EGD - THERAPEUTIC, EUS, OR TUBE INTERVENTIONS Endoscopy Routine Gastroesophageal reflux disease, unspecified whether esophagitis present 1 Occurrences starting 04/28/2023 until 04/27/2024 [facility] Work Phone: Comment on above: 1 Occurrences starting 04/28/2023 until 04/27/2024 End: 10-09-2022 EGD BARIATRIC EGD BARIATRIC Endoscopy Routine Gastroesophageal reflux disease, unspecified whether esophagitis present Bariatric surgery status Class 1 obesity with serious comorbidity and body mass index (BMI) of 31.0 to 31.9 in adult, unspecified obesity type S/P laparoscopic sleeve gastrectomy 1 Occurrences starting 10/09/2021 until 10/09/2022 [facility] Work Phone: Comment on above: 1 Occurrences starting 10/09/2021 until 10/09/2022 End: 10-21-2023 EGD DIAGNOSTIC EGD DIAGNOSTIC Endoscopy Routine Epigastric pain 1 Occurrences starting 10/20/2022 until 10/21/2023 [facility] Work Phone: Comment on above: 1 Occurrences starting 10/20/2022 until 10/21/2023 Electrocardiogram, 12-lead PRN ACS symptoms Electrocardiogram, 12-lead PRN ACS symptoms ECG Routine As needed until discontinued starting 03/05/2023 [facility] Work Phone: Comment on above: As needed until discontinued starting Electrocardiogram, 12-lead PRN ACS symptoms Electrocardiogram, 12-lead PRN ACS symptoms ECG Routine 03/08/2023 10:45 AM EST [facility] Work Phone: Electrocardiogram, 12-lead PRN ACS symptoms Electrocardiogram, 12-lead PRN ACS symptoms ECG Routine As needed until discontinued starting 03/16/2023 [facility] Work Phone: Comment on above: As needed until discontinued starting Glucose [Mass/volume ] in Serum or Plasma POCT Glucose Point of Care Testing - Docked Device Routine Every 4 hours (Lab) until discontinued starting 03/05/2023, 30 completed [facility] Work Phone: Comment on above: Every 4 hours (Lab) until discontinued s tarting 03/05/2023, 30 completed End: 12-04-2023 Hepatobil syst imag inc gb w/pharma intervenj NM HEPATOBILIARY W EF AND/OR RX Radiology Routine Nausea RUQ pain History of cholecystectomy 1 Occurrences starting 11/04/2022 until 12/04/2023 [facility] Work Phone: Comment on above: 1 Occurrences starting 11/04/2022 until 12/04/2023 End: 03-18-2023 Incentive spirometry Instruct Incentive spirometry Instruct Respiratory Care Routine Once for 1 Occurrences starting 03/18/2023 until 03/18/2023 [facility] Work Phone: Comment on above: Once for 1 Occurrences starting 03/18/19 until 03/18/2023 Injx anes celiac ple xus w/wo radiologic monitrng DIAG/THER NRV BLK CELIAC PLEXUS Procedures Routine Chronic pain syndrome Ordered: 01/11/2023 [facility] Work Phone: Comment on above: Ordered: 01/11/2023 End: 06-30-2023 Methicillin resistant Staphylococcus aureus [Presence] in Nose by Organism specific culture Staphylococcus Aureus/MRSA Colonization, Culture Microbiology Routine Once (Lab) for 1 Occurrences starting 06/30/2023 until 06/30/2023 [facility] Work Phone: Comment on above: Once (Lab) for 1 Occurrences starting until 06/30/2023 Patient Education [facility] Work Phone: Patient referral [facility] Work Phone: End: 04-27-2024 PH HUERTA INSERT ON MEDS PH HUERTA INSERT ON MEDS Endoscopy Routine Gastroesophageal reflux disease, unspecified whether esophagitis present 1 Occurrences starting 04/28/2023 until 04/27/2024 [facility] Work Phone: Comment on above: 1 Occurrences starting 04/28/2023 until 04/27/2024 End: 11-18-2022 PH IMPEDANCE INSERT OFF MEDS PH IMPEDANCE INSERT OFF MEDS Endoscopy Routine Gastroesophageal reflux disease without esophagitis S/P laparoscopic sleeve gastrectomy 1 Occurrences starting 11/19/2021 until 11/18/2022 [facility] Work Phone: Comment on above: 1 Occurrences starting 11/19/2021 until 11/18/2022 End: 03-05-2023 Pulse oximetry, continuous Pulse oximetry, continuous Respiratory Care Routine Continuous until discontinued starting 03/05/[address] [facility] Work Phone: Comment on above: Continuous until discontinued starting 0 03/05/2023 End: 06-30-2023 Pulse oximetry, continuous Pulse oximetry, continuous Respiratory Care Routine Continuous until discontinued starting 06/30/[address] [facility] Work Phone: Comment on above: Continuous until discontinued starting 0 06/30/2023 End: 10-18-2023 Radiologic exam upr gi trc double contrast study XR UPPER GI ROUTINE DOUBLE CONTRAST/AIR Radiology Routine S/P bariatric surgery Gastroesophageal reflux disease, unspecified whether esophagitis present 1 Occurrences starting 09/18/2022 until 10/18/2023 [facility] Work Phone: Comment on above: 1 Occurrences starting 09/18/2022 until 10/18/2023 SURGICAL PATHOLOGY [facility] Work Phone: Comment on above: Release Upon Ordering for 1 Occurrences starting 12/25/2021, 1 completed Surgical pathology study [facility] Work Phone: Comment on above: Release Upon Ordering for 1 Occurrences starting 03/19/2023, 1 completed End: 03-10-2023 Urethral Catheter Removal Urethral Catheter Removal Procedures Routine Once for 1 Occurrences starting 03/10/2023 until 03/10/2023 [facility] Work Phone: Comment on above: Once for 1 Occurrences starting 03/10/19 until 03/10/2023 End: 07-03-2023 Urethral Catheter Removal Urethral Catheter Removal Procedures Routine Once for 1 Occurrences starting 07/03/2023 until 07/03/[address] [facility] Work Phone: Comment on above: Once for 1 Occurrences starting 07/03/19 until 07/03/2023 End: 12-04-2023 US ABD RIGHT UPPER QUADRANT US ABD RIGHT UPPER QUADRANT Radiology Routine Nausea RUQ pain History of cholecystectomy 1 Occurrences starting 11/04/2022 until 12/04/2023 [facility] Work Phone: Comment on above: 1 Occurrences starting 11/04/2022 until 12/04/2023 US ABD RIGHT UPPER QUADRANT US ABD RIGHT UPPER QUADRANT Radiology Routine Nausea RUQ pain History of cholecystectomy 11/04/2022 11:15 AM EDT [facility] Work Phone: End: 12-04-2023 XR KNEE GENERAL 4V AP BOTH/PA BOTH/LAT/MERC RIGHT XR KNEE GENERAL 4V AP BOTH/PA BOTH/LAT/MERC RIGHT Radiology Routine Right knee pain, unspecified chronicity 1 Occurrences starting 11/04/2022 until 12/04/2023 [facility] Work Phone: Comment on above: 1 Occurrences starting 11/04/2022 until 12/04/2023 [facility] F[facility] Immunizations Immunization Date Immunization Notes Care Provider Fa su 11-12-2022 influenza, injectabl e, quadrivalent, preservative free Deacon Kat MD Work Phone: [facility] 11-16-2021 influenza virus vaccine, unspecified formulation [facility] Jose Ramon [facility] 02-18-2021 SARS-CoV-2 (COVID-19 ) mRNA BNT-162b2 vax [facility] Comment on above: Result Comment: 2022: TPVALL 01-01-2021 influenza virus vaccine, unspecified formulation [facility] 01-01-2021 influenza, seasonal, injectable Kuldip Yousif MD Work Phone: [facility] 12-25-2020 influenza virus vaccine, unspecified formulation [facility] 12-25-2020 influenza, injectabl e, quadrivalent, preservative free Kuldip Yousif MD Work Phone: [facility] 06-23-2020 COVID-19 Vaccine Woo - Documentation Purposes Only Shanna June Other [facility] Comment on above: Result Comment: 2022: TPVAL 11-28-2018 influenza, seasonal, injectable Shanna June Other [facility] 11-28-2018 influenza virus vaccine, unspecified formulation Agustin Gustafson [facility] 09-21-2016 tetanus toxoid, redu lauren diphtheria toxoid, and acellular pertussis vaccine, adsorbed Kuldip Yousif MD Work Phone: [facility] Payers Date Payer Category Payer Unknown [id number] 2023 Self-pay [id number] 2020 Private Health Insurance [id number] 2020 Private Health Insurance [facility] UMR CHOICE PLUS [id number] 2020-Present [phone] [address] [address] [place] [address] O [id number] 2017 Unknown 2017 Unknown [employer] [id number] 2017-Present [id number]. [id number] 1989 Unknown [id number] 2.16.840.1.690692.3.579.2. 594 1989 Unknown [id number] 2.16.840.1.890612.3.579.2. 594 1989 Unknown [id number] 2.16.840.1.669285.3.579.2. 593 1989 Unknown [id number] 2.16.840.1.952188.3.579.2. 593 1989 Unknown [id number] 2.16.840.1.298314.3.579.2. 593 1989 Unknown [id number] 2.16.840.1.511772.3.579.2. 593 1989 Unknown [id number] 2.16.840.1.842023.3.579.2. 593 1989 Unknown [id number] 2.16.840.1.404872.3.579.2. 593 1989 Unknown [id number] 2.16.840.1.761314.3.579.2. 593 1989 Unknown [id number] 2.16.840.1.640352.3.579.2. 593 1989 Unknown [id number] 2.16.840.1.170309.3.579.2. 593 1989 Unknown [id number] 2.16.840.1.168269.3.579.2. 593 1989 Unknown [id number] 2.16.840.1.532023.3.579.2. 593 1989 Unknown [id number] 2.16.840.1.553315.3.579.2. 593 1989 Unknown [id number] 2.16.840.1.021538.3.579.2. 173 1989 Unknown [id number] 2.16.840.1.595702.3.579.2. 173 1989 Unknown [id number] 2.16.840.1.286204.3.579.2. 173 1989 Unknown [id number] 2.16.840.1.533520.3.579.2. 983 1989 Unknown [id number] 2.16.840.1.366746.3.579.2. 196 1989 Unknown [id number] 2.16.840.1.564260.3.579.2. 182 1989 Unknown [id number] 2.16.840.1.147920.3.579.2. 182 1989 Unknown [id number] 2.16.840.1.389476.3.579.2. 1243 1989 Unknown [id number] 2.16.840.1.412166.3.579.2. 1245 1989 Unknown [id number] 2.16.840.1.187104.3.579.2. 1244 1989 Unknown [id number] 2.16.840.1.995958.3.579.2. 1244 1989 Unknown [id number] 2.16.840.1.557310.3.579.2. 1244 1989 Unknown [id number] 2.16.840.1.325984.3.579.2. 1244 1989 Unknown [id number] 2.16.840.1.238358.3.579.2. 1243 1989 Unknown [id number] 2.16.840.1.952505.3.579.2. 4 1989 Unknown [id number] 2.16.840.1.455453.3.579.2. 1243 1989 Unknown [id number] 2.16.840.1.465809.3.579.2. 1243 1989 Unknown [id number] 2.16.840.1.663777.3.579.2. 1243 1989 Unknown [id number] 2.16.840.1.037875.3.579.2. 1243 1989 Unknown [id number] 2.840.1.461570.3.579.2. 1243 1989 Unknown [id number] 2.16.840.1.202776.3.579.2. 1243 1989 Unknown [id number] 2.16.840.1.684391.3.579.2. 1243 1989 Unknown [id number] 2.16.840.1.159681.3.579.2. 9 1989 Unknown [id number] 2.16.840.1.083291.3.579.2. 1258 1989 Unknown [id number] 2.16.840.1.146742.3.579.2. 9 1989 Unknown [id number] 2.16.840.1.686610.3.579.2. 727 1989 Unknown [id number] 2.16.840.1.899745.3.579.2. 727 1989 Unknown [id number] 2.16.840.1.986593.3.579.2. 727 1989 Unknown [id number] 2.16.840.1.220686.3.579.2 1989 Unknown [id number] 2.16.840.1.342573.3.579.2 1989 Unknown [id number] 2.16.840.1.588297.3.579.2 1989 Unknown [id number] 2.16.840.1.944752.3.579.2 1989 Unknown [id number] 2.16.840.1.963888.3.579.2 1989 Unknown [id number] 2.16.840.1.341123.3.579. 1989 Unknown [id number] 2.16.840.1.553140.3.579. 1989 Unknown [id number] 2.16.840.1.668303.3.579.2 1989 Unknown [id number] 2.16.840.1.246793.3.579.2 1989 Unknown [id number] 2.16.840.1.876101.3.579.2 1989 Unknown [id number] 2.16.840.1.874761.3.579.2 1989 Unknown [id number] 2.16.840.1.605260.3.579.2 1989 Unknown [id number] 2.16.840.1.167082.3.579.2 1989 Unknown [id number] 2.16.840.1.902719.3.579.2 1989 Unknown [id number] 2.16.840.1.887090.3.579.2 1989 Unknown [id number] 2.16.840.1.009599.3.579.2 1989 Unknown [id number] 2.16.840.1.038503.3.579.2. 7 1989 Unknown [id number] 2.16.840.1.150025.3.579.2. 1989 Unknown [id number] 2.16.840.1.411883.3.579.2. 1989 Unknown [id number] 2.16.840.1.022657.3.579.2 1989 Unknown [id number] 2.16.840.1.173675.3.579.2 1989 Unknown [id number] 2.16.840.1.346421.3.579.2 1989 Unknown [id number] 2.16.840.1.340524.3.579.2 1989 Unknown [id number] 2.16.840.1.205980.3.579.2 1989 Unknown [id number] 2.16.840.1.882808.3.579.2 1989 Unknown [id number] 2.16.840.1.559957.3.579.2 1989 Unknown [id number] 2.16.840.1.258863.3.579.2 1989 Unknown [id number] 2.16.840.1.300693.3.579.2 1989 Unknown [id number] 1960 Unknown [id number] 1960 Unknown [id number] Unknown [id number] Unknown [id number] Unknown [id number] Unknown [id number] Unknown [id number] Social History Date Type Detail Facility Start: 01-30-2020 End: 08-14-2023 Tobacco smoking status KSIS Never smoker [facility] Start: 01-30-2020 End: 01-28-2022 Tobacco use and exposure Never used [facility] Start: 01-30-2020 End: 11-02-2022 Alcohol intake Current non-drinker of alcohol (finding) [facility] Start: 1990 Sex Assigned At Not on file A [facility] Start: 06-08-2021 End: 06-29-2023 Exposure to SARS-CoV-2 (event) Not sure [facility] Start: 05-06-2021 End: 08-09-2023 Alcohol intake Ex-drinker (finding) [facility] Start: 10-16-2019 End: 06-20-2022 History SDOH Financial 5 [facility] Start: 10-16-2019 End: 06-20-2022 History SDOH Food Worry 1 [facility] Start: 10-16-2019 End: 06-20-2022 History SDOH Transport Med 2 [facility] Start: 10-15-2019 Education 18 [facility] Start: 06-17-2022 End: 09-18-2022 Sex Assigned At [facility] Start: 10-04-2021 End: 01-01-2022 Exposure to SARS-CoV-2 (event) Unable to assess [facility] Tobacco smoking status Never [facility] Start: 06-17-2022 End: 09-18-2022 History of Social function [facility] Work Phone: (I/We) worried law er (my/our) food would run out before (I/we) got money to buy more. Never true [facility] Work Phone: In the past 12 month s, was there a time when you were not able to pay the mortgage or rent on time? No [facility] Work Phone: Do you belong to any clubs or organizations such as jewish groups, unions, fraternal or athletic groups, or school groups? Yes [facility] Are you now , , , , never or living with a partner? [facility] How often to you hav e a drink containing alcohol? Never [facility] How hard is it for y ou to pay for the very basics like food, housing, medical care, and heating Somewhat hard [facility] Do you feel stress - tense, restless, nervous, or anxious, or unable to sleep at night because your mind is troubled all the time - these days [OSQ] To some extent [facility] Start: 11-12-2017 Gender identity Identifies as female gender (finding) [facility] How hard is it for y ou to pay for the very basics like food, housing, medical care, and heating Hard [facility] (I/We) worried law er (my/our) food would run out before (I/we) got money to buy more. Sometimes true [facility] Start: 1990 Sex Assigned At Female F [facility] How hard is it for y ou to pay for the very basics like food, housing, medical care, and heating Not very hard [facility] Work Phone: Start: 03-02-2023 Sexual orientation Heterosexual (graham rosado) [facility] Work Phone: Tobacco [facility] Comment on above: denies Tobacco smoking status No Smokin g Status Entered [facility] Do you feel stress - tense, restless, nervous, or anxious, or unable to sleep at night because your mind is troubled all the time - these days [OSQ] Rather much [facility] Work Phone: NEGATED: Highlighted row [facility] Medical Equipment Procedure Code Equipment Code Equipment Origin al Text Equipment Identifier Dates Fibertak Hip Yoanna f Bunching Kl [place] 1.8mm [id number] Start: 07-10-2021 Fibertak Hip Yoanna f Bunching Kl [place] 1.8mm [id number] Start: 07-10-2021 Fibertak Hip Yoanna f Bunching Kl [place] 1.8mm [id number] Start: 07-10-2021 Fibertak Hip Yoanna f Bunching Kl [place] 1.8mm [id number] Start: 07-10-2021 Membrane, Sepraf ilm, 5 X 6 In - [id number] Start: 03-05-2023 One touch Verio strips for One Touch Verio meter; test 4 times a day [id number] Start: 01-16-2019 End: 03-10-2023 Functional Status Date Assessment Result Facility 07-17-2023 Functional status Patient at Baseline [facility] Work Phone: 05-17-2023 Functional Status N/A [facility] 05-12-2023 Functional Status No [facility] 05-12-2023 Functional Status [facility] 05-11-2023 Functional Status N/A [facility] 05-09-2023 Functional Status N/A [facility] 05-06-2023 Functional Status N/A [facility] 04-02-2023 Functional Status N/A [facility] 03-16-2023 Functional Status N/A [facility] 03-15-2023 Functional Status N/A [facility] 12-31-2022 Functional Status N/A [facility] 10-20-2022 Functional Status N/A [facility] 10-19-2022 Functional Status N/A [facility] 07-29-2022 Functional Status N/A [facility] 06-10-2022 Functional Status N/A [facility] Mental Status Date Assessment Result Facility 07-17-2023 Cognitive function Cognitive Sta tus Patient at Baseline [facility] Work Phone: Clinical Notes 07-09-2019 to 08-12-2023 Telephone Encounter - Radha Osman MA - 08/12/2023 10:54 AM EDTTelephone Encounter - Radha Osman MA - 08/12/2023 10:54 AM Vic Brewer MD - 08/09/2023 2:00 PM EDT Note Date & Type Note Facility 08-12-2023 Telephone encounter Note GI Pre-Procedure Spoke with patient: Yes Confirmed date scheduled and patient report time: Yes Procedure Planned:Huerta insert Esophagogastroduodenoscopy(EGD) for control of bleeding,dilation(any means),imaging,tube placement Is the patient on blood thinners?no Procedure Instructions given to patient: Yes, and they verbalized their understanding of instructions given Patient instructed to have family/friend present for procedure transport home:Patient/patient sales and marketing representative was told that if they do not have a responsible adult accompany them to their procedure; and remain in the endoscopy area until they are discharged; that their procedure cannot be done with sedation or anesthesia and may be cancelled. and They verbalized their understanding and agree to have a responsible adult accompany the patient to their procedure and remain in the endoscopy area. Any barriers to Patient learning: Patient/Patient Wheel And Caster Repairer responded appropriately on phone. Type of instruction given: Verbal by telephone contact. Radha Osman MA [facility] 08-12-2023 Miscellaneous Notes GI Pre-Procedure Spoke with patient: Yes Confirmed date scheduled and patient report time: Yes Procedure Planned:Huerta insert Esophagogastroduodenoscopy(EGD) for control of bleeding,dilation(any means),imaging,tube placement Is the patient on blood thinners?no Procedure Instructions given to patient: Yes, and they verbalized their understanding of instructions given Patient instructed to have family/friend present for procedure transport home:Patient/patient sales and marketing representative was told that if they do not have a responsible adult accompany them to their procedure; and remain in the endoscopy area until they are discharged; that their procedure cannot be done with sedation or anesthesia and may be cancelled. and They verbalized their understanding and agree to have a responsible adult accompany the patient to their procedure and remain in the endoscopy area. Any barriers to Patient learning: Patient/Patient Wheel And Caster Repairer responded appropriately on phone. Type of instruction given: Verbal by telephone contact. Radha Osman MA documented in this encounter [facility] 08-09-2023 History of Presen t illness Narrative Images from the original note were not included. SUBJECTIVE: The patient presents to [facility] for a follow-up appointment for pain in the abdomen (naval and comes around to left side to back) BIPIN: 08/04/[address] Murguia persistent Current pain intensity is 7 on a scale of 0 -10. Pain character: spasms intermittent, sharpness Exacerbating factors: moving around (being active, moving around) Alleviating factors: laying on right side curled up Medications For Pain: - Opioids: - NSAIDs: - Anti-Depressants: lexapro - Anti-Convulsants: topamax - Others: tylenol, naltrexone, ketamine (2 compound medications) Opioid agreement: OARRS report reviewed by the physician Ms. Garcia called [facility] & was told that medications will not ready. Recently, She passed out (BP orthostatic) Patient is being treated for Left Lung pneumonia (for the past 4 weeks) Is the patient receiving analgesia/pain relief from the current medications? (YES or NO) yes Has the current medication improved activities such as walking or standing? (YES or NO) patient has been out of medications for 1 day Have the current medications been associated with any adverse events? (YES or NO) Illicit drug use? (YES or NO) Physical Therapy in the last 6 months?: no FH: patient denies any family history of the chief complaint for this visit SH: denies illicit drug use Sabina Ibrahim MA August 09, 2023 Questionnaires: Patient Entered Questionnaires PROMIS Score Percentiles 01/08/2023 04/28/2023 08/01/2023 PROMIS Global Health Scale Physical Health Percentile 2 2 2 Mental Health Percentile 5 5 5 05/30/2023 07/10/2023 08/08/2023 Physical Health Physical Function Percentile 4 5 7 Pain Interference Percentile 1 4 4 Percentiles provide an indication of how the patient's score ranks in relation to the general population. Higher percentile rankings indicate better function/quality of life. 50th percentile is the average of the general population and indicates half of respondents had a worse score. > 31st percentile is within normal limits or better * < 31st percentile is at least SD worse than population, which may be clinically relevant < 16th percentile is at least 1 SD worse than population and warrants attention Depression Screenin05/30/2023 06/09/2023 07/09/2023 PHQ-9 Score 12 11 6 6 07/09/2023 06/09/2023 05/30/2023 PHQ-9 Self Harm Question 9 Not at all Not at all Not at all PHQ-9 Self-Harm (Item 9) response options: 0 Not at all 1 Several days 2 More than half the days 3 Nearly every day PHQ-9 Levels: 0-4 Minimal depression 5-9 Mild depression 10-14 Moderate depression 15-19 Moderately severe depression 20-27 Severe depression PHQ-9 Score 07/09/2023 6 6 06/09/2023 11 05/30/2023 12 11/12/2022 8 11/09/2022 11 10/04/2022 9 09/21/2022 7 7 03/24/2022 5 12/24/2021 11 09/09/2021 5 (0-4) minimal depression, (5-9) mild depression, (10-14) moderate depression, (15-19) moderately severe depression, (20-27) severe depression No data to display No data to display The following information was personally collected by me, Vic Ramos MD on August 05, 2023 1:21 PM (electronically signed): REVIEW OF SYSTEMS: GENERAL: (+fluctuate)weight loss, (-)malaise, (-)fevers. HEENT:(+)headaches/migraines. NECK: (-) for lumps, goiter, (-)pain and (-)significant neck swelling. RESPIRATORY: (+pneumonia, coughing, SOB) for cough, wheezing or shortness of breath. CARDIOVASCULAR: (-) for chest pain, leg swelling or palpitations. GI: (-) abdominal discomfort, (-)blood in stools or black stools or change in bowel habits. MUSCULOSKELETAL: (+knees)joint pain , (+knees)swelling, (+)back pain, (+)muscle pain. SKIN: (-) for lesions, rash, and itching. PSYCH: (+)sleep disturbance, (-)mood disorder, (-)recent psychosocial stressors. HEMATOLOGY/LYMPHOLOGY: (+) for prolonged bleeding, bruising easily or swollen nodes. NEURO: (+syncope)syncope, paralysis, seizures or tremors. All other reviewed and negative other than HPI and as specified above. OBJECTIVE: BP 113/79 Pulse 76 LMP 08/19/2020 GENERAL: Well appearing. No acute distress PSYCH: Mood and affect is appropriate. Awake, alert, and oriented x 3 SKIN: Skin color, texture, turgor normal, no rashes or lesions Otolaryng/HEENT: Normocephalic, atraumatic. EOM intact RESP: Respirations are unlabored CARD: Regular rate. Cap refill <2s. Extremities pink and well perfused at nailbed. MSK: Bilateral upper and lower extremity strength is normal and symmetric. No atrophy or tone abnormalities are noted. Gait: Gait is smooth NEURO: Bilateral upper and lower extremity coordination are intact. ASSESSMENT AND MEDICAL DECISION MAKING: This is a 33 year old female with abd pain. Great benefit in the past with ketamine nasal spray. Her usual pharmacy [facility] is out of stock on this x 1 week so I did make some suggestions re: [place] vs. different [place] location vs. [place] online to try She previously tried gabapentin, elavil in the past (some small benefit) but had elevated QT She is patient of Dr. Magaña, s/p MAL release with some benefit. She is mostly interested in a workaround for this Rx supply chain issue at the pharmacy rather than any invasive treatment or block at this time, so she will phone us with the decision as to where to resend the ketamine Rx. Dr. Murguia suggested low dose naltrexone 1.5mg trial but they are also out of this stock too. Dx: Neuralgia and neuritis (primary encounter diagnosis) Median arcuate ligament syndrome (hcc) PLAN: ketamine nasal spray continued [facility] Return to clinic (in-person office visit or virtual visit/telemedicine) after all above completed fully. I spent a total of 25 minutes on the date of the service which included: *preparing to see the patient *[id number] patient care *completing clinical documentation *obtaining and/or reviewing separately obtained history *performing a medically appropriate examination *counseling and educating the patient/family/caregiver *ordering medications, tests, or procedures *communicating with other HCPs (not separately reported) *independently interpreting results (not separately reported) *communicating results to the patient/family/caregiver *care coordination (not separately reported). Of this, greater than 50% of this was spent in the presence of the patient for purposes of education and counseling regarding the diagnosis and treatment of pain. Patient is aware that any diagnostic testing is best discussed in person to fully explain the significance and resulting treatment plan. Patient is aware that they will need a follow up office visit/virtual visit for proper care. Patient agrees with above. Vic Ramos MD August 05, 2023 documented in this encounter [facility] 08-09-2023 Note [facility] 08-06-2023 Note [facility] 08-06-2023 Note HNO ID: [id number] Author: MARIA TERESA MURILLO MD Service: Hospital Medicine Author Type: Physician Type: Plan of Care Filed: 08/06/2023 11:50 Note Text: To review with pulmonology [facility] 08-05-2023 Note [facility] 08-05-2023 Telephone encounter Note Requested Prescriptions Pending Prescriptions Disp Refills ketamine 5% nasal spray solution (CPD) 12 mL 0 Si.1 mL/spray. Use as directed. 1 spray by nose twice per day x 3 days, then increase to 2 sprays by nose twice per day if tolerated. Added volume to account for dispenser loss. Physician office visit required for refill. [facility] 08-05-2023 Miscellaneous Notes Requested Prescriptions Pending Prescriptions Disp Refills ketamine 5% nasal spray solution (CPD) 12 mL 0 Si.1 mL/spray. Use as directed. 1 spray by nose twice per day x 3 days, then increase to 2 sprays by nose twice per day if tolerated. Added volume to account for dispenser loss. Physician office visit required for refill. documented in this encounter [facility] 08-05-2023 Note [facility] 08-04-2023 Note [facility] 08-04-2023 Note [facility] 08-04-2023 Note [facility] 08-04-2023 Telephone encounter Note Lucie from [facility] pharmacy calling regarding RX just sent in for Ketamine. He states that is not something they have or can help with at [facility]. States maybe a compounding pharmacy. So RX unavailable. [facility] 08-04-2023 Miscellaneous Notes Lucie from [facility] pharmacy calling regarding RX just sent in for Ketamine. He states that is not something they have or can help with at [facility]. States maybe a compounding pharmacy. So RX unavailable. documented in this encounter [facility] 08-04-2023 History of Presen t illness Narrative Follow up Visit Patient Name: Abbey Garcia MR #: [id number] Age: [age] year old Date: August 03, 2023 Referred by: This is a Dr. Ramos patient Patient was last seen per virtual visit on 06/01/23 for the diagnosis of Gastroesophageal reflux disease without esophagitis Neuralgia and neuritis (primary encounter diagnosis) Median arcuate ligament syndrome (hcc) S/p gastric bypass. The following plan of care was recommended 1) agree with tracking of macro/micronutrient intake 2) trial of Ketamine nasal spray 3) Otherwise, return to the office in person, ~4 weeks, for refill. Treatment agreement on file: No Last toxicology screen done:N/A This Episode: Pattern: Constant. Character: Sharp. Severity: VAS Pain: 7/10 Current Location: abdomen Radiation: radiating to thorugh the back. Associated Signs/Symptoms: Sleep disturbance; awakens during night due to pain. Sensory/Motor Changes: None. Changes in Bowel/Bladder Control?: No. Number of hours of sleep per night: 6 Is sleep interrupted by pain? Yes. Patient feels safe at home: Yes Patient Entered Questionnaires PROMIS Score Percentiles 01/08/2023 04/28/2023 08/01/2023 PROMIS Global Health Scale Physical Health Percentile 2 2 2 Mental Health Percentile 5 5 5 01/08/2023 05/30/2023 07/10/2023 Physical Health Physical Function Percentile 12 4 5 Pain Interference Percentile 1 1 4 Percentiles provide an indication of how the patient's score ranks in relation to the general population. Higher percentile rankings indicate better function/quality of life. 50th percentile is the average of the general population and indicates half of respondents had a worse score. > 31st percentile is within normal limits or better * < 31st percentile is at least SD worse than population, which may be clinically relevant < 16th percentile is at least 1 SD worse than population and warrants attention Optical Element Coater:Nathalie Reed MA The patient is a 33-year-old white female a patient of Dr. Posey presenting today for medication refill. Patient has been experiencing chronic abdominal pain following gastric bypass surgery with complication. Patient has tried multiple medication and had also celiac ganglion block in the past giving her transient pain relief. Patient was tried on intranasal ketamine with reasonable pain control. She ran out of her medication and she was due for refill and could not get it because of the absence of Dr. Ramos She presents today with exacerbated abdominal pain associated with nausea and vomiting. The pain is affecting the whole abdomen. No specific precipitating or relieving factor On exam alert oriented pleasant white female in no acute distress. Vital signs stable. Head normocephalic with no evidence of trauma. Neck is supple with no JVD. Abdominal exam reveals a soft abdomen. Patient has remarkable tenderness [place] to palpation even for very light palpation in the whole abdomen/she has minimal rebound tenderness/bowel sounds are present Impression Chronic abdominal pain Status post complicated gastric bypass surgery Plan Will get the patient an appointment with Dr. Posey on the for reevaluation as she has been his patient for couple of years I will refill ketamine intranasal for 1 time Discuss other treatment option and I recommended a trial of low-dose naltrexone. Will get her the prescription that she will discuss with Dr. Ramos when she see him in few days We will also discuss with Dr. Ramos to repeat the celiac ganglion block and if it is successful for short period of time to even consider neurolytic celiac ganglion block Implantable devices were also discussed as a last resort Patient understands her options she will discuss her treatment option with Dr. Ramos and her next visit documented in this encounter [facility] 08-04-2023 Note [facility] 07-20-2023 Note [facility] 07-19-2023 Note [facility] 07-18-2023 Note [facility] 07-17-2023 Consult note Note Date/Time July 17, 2023 1:56p m [facility] [address] [place] [address] General Surgery Consult Note Signed Patient: Abbey Garcia MR#: [id number] : 1990 Acct:[id number] Age/Sex: 33 / F Adm Date: 4 Loc: Room: [address] [place] [address] Type: ADM IN Attending Dr: Camden Rodriguez DO Copies to: MD Thomas Jordan MD Yazid Hussein, DO~ History of Present Illness Date of consult: 07/17/2023 Requesting/Attending Provider: Camden Rodriguez DO History of present illness: The patient is a 33-year-old female admitted with nausea and vomiting. Patient had Tan-en-Y gastric bypass procedure done 2021 at [facility]. In 2020, she had had a gastric sleeve performed. She had lost about 50 pounds of the gastric sleeve and another 60 pounds after the gastric bypass. Over the past few months, patient has had episodes of not tolerating oral intake. She did have a jejunostomy tube placed endoscopically. She also has a PICC line for TPN. She had been doing tube feeds but when she develops nausea or vomiting, she uses TPN. 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 With her episodes of nausea/vomiting, intolerance of oral intake, patient statesthat her surgeons were concerned about possible hiatal hernia. She apparently was scheduled to have a procedure done at [facility] in the near future. CT scan here showed:IMPRESSION: Fluid-filled distal small bowel loops without gross distention. Developing small bowel obstruction cannot be excluded Currently, patient has some nausea and some upper abdominal discomfort.. Review of Systems Constitutional Constitutional: Denies fever(s) Cardiovascular Cardiovascular: Denies chest pain Respiratory Respiratory: Denies dyspnea Gastrointestinal Gastrointestinal: Reports abdominal pain, Reports nausea and Reports vomiting [facility] Medical History Encounter for PEG (percutaneous endoscopic gastrostomy) Median arcuate ligament syndrome Spleen enlarged Problem List clean-up per request of Phys. EHR Cmte Liver cyst Problem List clean-up per request of Phys. EHR [facility] Anxiety Problem List clean-up per request of Phys. EHR [facility] Depression Problem List clean-up per request of Phys. EHR [facility] PCOS (polycystic ovarian syndrome) Problem List clean-up per request of Phys. EHR [facility] Hypothyroid Problem List clean-up per request of Phys. EHR [facility] Surgical History History of gastric bypass 01/2022 History of appendectomy Problem List clean-up per request of Phys. EHR [facility] Family History Father Hypothyroidism Mother Family history of mental disorder [facility] Problem: Diagnosed with Mental Illness Hypertension Diabetes Social History Smoking Status: Never smoker Substance Use Type: None Allergies & Medications Medications and Allergies Allergies codeine Allergy (Unknown, Verified 07/16/23 15:25) Vomiting oxycodone [Percocet] Allergy (Unknown, Verified 07/16/23 15:25) anaphylaxis NSAIDS (Non-Steroidal Anti-Inflamma Adverse Reaction (Mild, Verified 07/16/23 15:25) d/t surgery Home Medications albuterol sulfate 90 mcg/actuation aerosol inhaler 2 puff inhalation Q6H 02/13/23 [History Confirmed 07/16/23] buspirone 15 mg tablet 15 mg PO TID 02/13/23 [History Confirmed 07/16/23] escitalopram oxalate 20 mg tablet 20 mg PO DAILY 02/13/23 [History Confirmed 07/16/23] levothyroxine 100 mcg tablet 100 mcg PO DAILY 02/13/23 [History Confirmed 07/16/23] linaclotide 145 mcg capsule (Linzess) 290 mcg PO DAILY 02/13/23 [History Confirmed 07/16/23] liothyronine 5 mcg tablet 5 mcg PO DAILY 02/13/23 [History Confirmed 07/16/23] mirtazapine 15 mg tablet 30 mg PO DAILY 02/13/23 [History Confirmed 07/16/23] ondansetron HCl 4 mg tablet 4 mg PO Q8H PRN nausea and vomiting #14 tabs 02/13/23 [Rx Confirmed 07/16/23] methocarbamol 500 mg tablet 500 mg PO BID 05/30/23 [History Confirmed 07/16/23] metoclopramide HCl 10 mg tablet 10 mg PO TID 05/30/23 [History Confirmed 07/16/23] polyethylene glycol 3350 17 gram/dose oral powder (Miralax) 17 g PO BID PRN constipation #238 grams 05/30/23 [Rx Confirmed 07/16/23] topiramate 100 mg tablet (Topamax) 100 mg PO BID 07/16/23 [History Confirmed 07/16/23] Active Medications Acetaminophen (Acetaminophen 325 Mg Tablet) 650 mg PO Q6HR PRN PRN Reason: Pain Scale 1 - 3 or fever Stop: 07/16/24 08:46 Albuterol (Albuterol Hfa 60 Puff/8 Gram Inhaler) 2 puff INHALATION Q6H PRN PRN Reason: Wheezing Stop: 07/16/24 08:59 Last Admin: 07/17/23 13:25 Dose: 2 puff Buspirone HCl (Buspirone 15 Mg Tablet) 15 mg PO TID TANIA Stop: 07/16/24 13:59 Dextrose (Dextrose 50% In Water 25 Gm/50 Ml Syringe) 0 gm IV-PUSH PRN PRN PRN Reason: Hypoglycemia Stop: 07/16/24 11:08 Enoxaparin Sodium (Enoxaparin 40 Mg/0.4 Ml Syringe) 40 mg SUBCUT DAILY@10 [facility] Stop: 07/16/24 09:59 Last Admin: 07/17/23 11:23 Dose: 40 mg Escitalopram Oxalate (Escitalopram 20 Mg Tablet) 20 mg PO DAILY [facility] Stop: 07/16/24 08:59 Last Admin: 07/17/23 11:21 Dose: 20 mg Glucose (Dextrose 40% Gel 15 Gm Tube) 0 gm PO PRN PRN PRN Reason: Hypoglycemia Stop: 07/16/24 11:08 Sodium Chloride (0.9% Sodium Chloride 1,000 Ml) 1,000 mls @ 100 mls/hr IV .[id number] Stop: 07/18/24 08:59 Potassium Chloride 20 meq/ (Sodium Chloride) 260 mls @ 130 mls/hr IV DAILY PRN PRN Reason: Hypokalemia Stop: 07/16/24 08:46 Magnesium Sulfate (Magnesium Sulf 2gm-*Swfi*) 2 gm in 50 mls @ 25 mls/hr IV DAILY PRN PRN Reason: Magnesium Level < 1.5 Stop: 07/16/24 08:46 Total Parenteral Nutrition 1 bag/ Multivitamins/Minerals 10 ml/ Ascorbic Acid 500 mg/Folic Acid 1 mg/ Zinc/Copper/Manganese/Selenium 1 ml/ Amino Ac/Electrol/Dextrose/Calcium 1,512.2 mls @ 63.008 mls/hr IV DAILY@1800 [facility]; Protocol Stop: 07/16/24 17:59 Fat Emulsion Intravenous 250 (ml/ IV Miscellaneous Supplies) 250 mls @ 21 mls/hr IV MOWEFR@1800 [facility] Stop: 07/18/24 17:59 Levothyroxine Sodium (Levothyroxine 75 Mcg Tablet) 75 mcg PO DAILY@0630 [facility] Stop: 07/17/24 06:29 Liothyronine Sodium (Liothyronine 5 Mcg Tablet) 5 mcg PO DAILY [facility] Stop: 07/16/24 08:59 Last Admin: 07/17/23 11:21 Dose: 5 mcg Methocarbamol (Methocarbamol 500 Mg Tablet) 500 mg PO BID [facility] Stop: 07/16/24 08:59 Last Admin: 07/17/23 11:21 Dose: 500 mg Metoclopramide HCl (Metoclopramide 10 Mg Tablet) 10 mg PO TID.AC TANIA Stop: 07/16/24 11:29 Last Admin: 07/17/23 11:21 Dose: 10 mg Mirtazapine (Mirtazapine 30 Mg Tablet) 30 mg PO HS TANIA Stop: 07/16/24 21:59 Morphine Sulfate (Morphine Sulfate 2 Mg/Ml Vial) 2 mg IV-PUSH Q2H PRN PRN Reason: Pain Last Admin: 07/17/23 11:21 Dose: 2 mg Morphine Sulfate (Morphine Sulfate 4 Mg/Ml Cartridge) 4 mg IV-PUSH Q2H PRN PRN Reason: Pain Ondansetron HCl (Ondansetron 4 Mg/2 Ml Vial) 4 mg IV-PUSH Q8H PRN PRN Reason: Nausea And Vomiting Stop: 07/16/24 08:46 Last Admin: 07/17/23 11:22 Dose: 4 mg Ondansetron HCl (Ondansetron Odt 4 Mg Tab.Rapdis) 4 mg PO Q8H PRN PRN Reason: nausea and vomiting Stop: 07/16/24 09:06 Pantoprazole Sodium (Pantoprazole 40 Mg Vial) 40 mg IV-PUSH DAILY TANIA Stop: 07/16/24 08:59 Last Admin: 07/17/23 11:22 Dose: 40 mg Polyethylene Glycol (Polyethylene Glycol 3350 17 Gm Powd.Pack) 17 gm PO BID PRN PRN Reason: constipation Stop: 07/16/24 09:07 Prednisone (Prednisone 5 Mg Tablet) 5 mg PO DAILY TANIA Stop: 07/17/24 08:59 Sodium Chloride (Sodium Chloride 0.9 % 10 Ml Syringe) 0 ml IV-PUSH PRN PRN PRN Reason: Flush Stop: 07/15/24 14:45 Last Admin: 07/17/23 13:11 Dose: 10 ml Sodium Chloride (Sodium Chloride 0.9 % 10 Ml Vial.Pf) 10 ml INJECTION PRN PRN PRN Reason: Dilution Stop: 07/16/24 08:46 Last Admin: 07/17/23 11:22 Dose: 10 ml Sodium Chloride (Sodium Chloride 0.9 % 10 Ml Syringe) 10 ml IV-PUSH PRN PRN PRN Reason: Flush Stop: 07/16/24 08:46 Last Admin: 07/17/23 11:23 Dose: 10 ml Topiramate (Topiramate 100 Mg Tablet) 100 mg PO BID TANIA Stop: 07/16/24 08:59 Last Admin: 07/17/23 11:21 Dose: 100 mg Exam Physical Exam Vital Signs: Temp Pulse Resp BP Pulse Ox O2 Del Method 98.2 F 63 19 104/71 99 Room Air 07/17/23 08:45 07/17/23 08:45 07/17/23 08:45 07/17/23 08:45 07/17/23 08:45 07/17/23 12:00 Const General: cooperative and no acute distress HEENT Head: atraumatic Eyes Sclera: sclerae normal (Anicteric) GI Inspection: non-distended Palpation: soft, no guarding and nontender Other: J-Tube in place Neuro General: patient alert and patient awake Results - Gen. Surgery Pain Assessment Abdomen: Pain Description: Constant Pain Intensity: 7 Intake and Output 24 hour I&O: Intake & Output 07/16/23 07/17/23 07/17/23 23:59 07:59 15:59 Intake Total 1999 0 / 0 Balance 1999 0 / 0 Weight 79.5 kg Labs 07/16/23 15:10 07/16/23 15:10 Laboratory Results - last 72 hr 07/16/23 15:21: Urine Color Yellow, Urine Appearance Clear, Urine pH 7.5, Ur Specific [place] 1.006, Urine Protein Negative, Urine Glucose (UA) Normal, UrineKetones Negative, Urine Occult Blood Negative, Urine Nitrite Negative, Urine Bilirubin Negative, Urine Urobilinogen Normal, Ur Leukocyte Esterase Negative, Urine HCG, Qual Negative 07/16/23 15:10: Corrected WBC 6.9, Uncorrected WBC Count 6.9, RBC 3.67, Hgb 11.2L, Hct 32.8 L, MCV 89.2, MCH 30.5, MCHC 34.2, RDW 14.4, Plt Count 282, MPV 9.0, Neut % (Auto) 75.6, Lymph % (Auto) 18.7, [place] % (Auto) 4.5, Eos % (Auto) 0.5, Baso % (Auto) 0.7, Nucleat RBC Rel Count 0.0, Neut # (Auto) 5.2, Lymph # (Auto) 1.3, [place] # (Auto) 0.3, Eos # (Auto) 0.0, Baso # (Auto) 0.0, Monocyte Dist Width16.79, PHA Creatinine Clear 117.42, Sodium 137, Potassium 3.7, Chloride 107, Carbon Dioxide 24.2, Anion Gap 9.5, BUN 14, Creatinine 0.72, Est GFR (CKD-EPI) >60.0, Glucose 82, Calcium 8.9, Total Bilirubin 0.6, Direct Bilirubin 0.10, Indirect Bilirubin 0.5, AST 43 H, ALT 39, Alkaline Phosphatase 57, Total Protein6.8, Albumin 4.3, Globulin 2.5, Albumin/Globulin Ratio 1.7, Lipase 45.0 A&P - General Surgery (1) Intractable vomiting with nausea: (2) Status post gastric bypass for obesity: Plan Patient being actively seen by her surgeon at [facility] for her GI issues status post gastric bypass surgery. Transfer to [facility] is pending. Patient currently does not have an acute surgical abdomen. Patient can decompress the J-tube by placing it to gravity drain when she does develop nausea. With the nausea, vomiting, abdominal pain, can keep her n.p.o. except for sips of water and ice chips. Patient is to be started on TPN here. She is on TPN at home at times. Documented By: Keven Kimbrough MD 07/17/23 1356 Signed By: <Electronically signed by MD Keven Kimbrough> 07/17/23 1401 [facility] Work Phone: 1(501) 370-436406-01-2024 History and physical note Author Camden Rodriguez [facility] July 17, 2023 11:19am Note Date/Time July 17, 2023 11:19 am [facility] [address] [place] [address] Hospitalist H&P Signed Patient: Abbey Garcia MR#: [id number] : 1990 Acct:[id number] Age/Sex: 33 / F Adm Date: 4 Loc: 4N Room: 1J4519-5 Type: ADM IN Attending Dr: Camden Rodriguez DO Copies to: MD Camden Badillo DO~ HPI DATE OF EXAMINATION: 07/17/23 CHIEF COMPLAINT: Intractable nausea and emesis HISTORY OF PRESENT ILLNESS: Patient is a 33-year-old female with a past medical history of gastric bypass last January complicated by persistent GI related issue requiring G-tube placement since May 2023 who presented to the hospital with intractable nauseaand emesis. Patient follows closely with [facility]. She is actually accepted by [facility] but pending bed placement. She reports no bowel movements for 2 days. She alsohas minimal flatus. No fever chills. She has generalized abdominal discomfort. Pain is not radiating. No chest pain. No dyspnea. She has not been tolerating tube feeding through the G-tube as it has been increasing her nausea so she has not been getting tube feeding for several days and has been mainly getting TPN. Review of Systems Review of Systems All other systems reviewed & are negative unless noted below or in HPI [facility] Medical History Encounter for PEG (percutaneous endoscopic gastrostomy) Median arcuate ligament syndrome Spleen enlarged Problem List clean-up per request of Phys. EHR Cmte Liver cyst Problem List clean-up per request of Phys. EHR Cmte Anxiety Problem List clean-up per request of Phys. EHR Cmte Depression Problem List clean-up per request of Phys. EHR Cmte PCOS (polycystic ovarian syndrome) Problem List clean-up per request of Phys. EHR Cmte Hypothyroid Problem List clean-up per request of Phys. EHR [facility] Surgical History History of gastric bypass 01/2022 History of appendectomy Problem List clean-up per request of Phys. EHR Cmte Family History Father Hypothyroidism Mother Family history of mental disorder [facility] Problem: Diagnosed with Mental Illness Hypertension Diabetes Social History Smoking Status: Never smoker Substance Use Type: None Meds Medications and Allergies Allergies codeine Allergy (Unknown, Verified 07/16/23 15:25) Vomiting oxycodone [Percocet] Allergy (Unknown, Verified 07/16/23 15:25) anaphylaxis NSAIDS (Non-Steroidal Anti-Inflamma Adverse Reaction (Mild, Verified 07/16/23 15:25) d/t surgery Home Medications albuterol sulfate 90 mcg/actuation aerosol inhaler 2 puff inhalation Q6H 02/13/23 [History Confirmed 07/16/23] buspirone 15 mg tablet 15 mg PO TID 02/13/23 [History Confirmed 07/16/23] escitalopram oxalate 20 mg tablet 20 mg PO DAILY 02/13/23 [History Confirmed 07/16/23] levothyroxine 100 mcg tablet 100 mcg PO DAILY 02/13/23 [History Confirmed 07/16/23] linaclotide 145 mcg capsule (Linzess) 290 mcg PO DAILY 02/13/23 [History Confirmed 07/16/23] liothyronine 5 mcg tablet 5 mcg PO DAILY 02/13/23 [History Confirmed 07/16/23] mirtazapine 15 mg tablet 30 mg PO DAILY 02/13/23 [History Confirmed 07/16/23] ondansetron HCl 4 mg tablet 4 mg PO Q8H PRN nausea and vomiting #14 tabs 02/13/23 [Rx Confirmed 07/16/23] methocarbamol 500 mg tablet 500 mg PO BID 05/30/23 [History Confirmed 07/16/23] metoclopramide HCl 10 mg tablet 10 mg PO TID 05/30/23 [History Confirmed 07/16/23] polyethylene glycol 3350 17 gram/dose oral powder (Miralax) 17 g PO BID PRN constipation #238 grams 05/30/23 [Rx Confirmed 07/16/23] topiramate 100 mg tablet (Topamax) 100 mg PO BID 07/16/23 [History Confirmed 07/16/23] Exam Physical Exam Vital Signs: Temp Pulse Resp BP Pulse Ox O2 Del Method 97.6 F 62 16 106/53 L 96 Room Air 07/16/23 14:44 07/17/23 07:30 07/17/23 07:30 07/17/23 07:30 07/17/23 07:30 07/17/23 07:30 Narrative: Generally no acute distress, comfortable Heart regular rate and rhythm HEENT head atraumatic normocephalic, neck supple Lungs clear to auscultation bilaterally, normal effort Abdomen soft, minimal tenderness to palpation but generalized fashion, no guarding or rebound tenderness, G-tube in place intact Extremities no edema, pulses intact Skin no rash Psych cooperative Neuro intact throughout, oriented x 3 Results - Hospitalist H&P Lab Results Labs: Laboratory Last Values Corrected WBC 6.9 X10E3/uL (3.8-11.6) 07/16/23 15:10 Uncorrected WBC Count 6.9 x10E3/uL (3.8-11.6) 07/16/23 15:10 RBC 3.67 X10E6/uL (3.60-5.00) 07/16/23 15:10 Hgb 11.2 g/dL (11.8-15.4) L 07/16/23 15:10 Hct 32.8 % (34.0-46.4) L 07/16/23 15:10 MCV 89.2 fl (80-100) 07/16/23 15:10 MCH 30.5 pg (24.7-34.3) 07/16/23 15:10 MCHC 34.2 g/dL (32.0-35.0) 07/16/23 15:10 RDW 14.4 % (11.9-15.3) 07/16/23 15:10 Plt Count 282 x10E3/uL (150-450) 07/16/23 15:10 MPV 9.0 fl (6.3-10.7) 07/16/23 15:10 Neut % (Auto) 75.6 % (.) 07/16/23 15:10 Lymph % (Auto) 18.7 % (.) 07/16/23 15:10 Cabell % (Auto) 4.5 % (.) 07/16/23 15:10 Eos % (Auto) 0.5 % (.) 07/16/23 15:10 Baso % (Auto) 0.7 % (.) 07/16/23 15:10 Nucleat RBC Rel Count 0.0 /100 WBC (0-0.5) 07/16/23 15:10 Neut # (Auto) 5.2 x10E3/uL (1.8-7.7) 07/16/23 15:10 Lymph # (Auto) 1.3 x10E3/uL (1.00-4.8) 07/16/23 15:10 [place] # (Auto) 0.3 x10E3/uL (0.0-0.8) 07/16/23 15:10 Eos # (Auto) 0.0 x10E3/uL (0.0-0.45) 07/16/23 15:10 Baso # (Auto) 0.0 x10E3/uL (0.0-0.2) 07/16/23 15:10 Monocyte Dist Width 16.79 % (0.00-20.00) 07/16/23 15:10 PHA Creatinine Clear 117.42 07/16/23 15:10 Sodium 137 mmol/L (136-145) 07/16/23 15:10 Potassium 3.7 mmol/L (3.5-5.1) 07/16/23 15:10 Chloride 107 mmol/L (98-107) 07/16/23 15:10 Carbon Dioxide 24.2 mmol/L (21.0-31.0) 07/16/23 15:10 Anion Gap 9.5 mEq/L (6.0-15.0) 07/16/23 15:10 BUN 14 mg/dL (7-25) 07/16/23 15:10 Creatinine 0.72 mg/dL (0.60-1.20) 07/16/23 15:10 Est GFR (CKD-EPI) > 60.0 mL/Min 07/16/23 15:10 Glucose 82 mg/dL (70-100) 07/16/23 15:10 Calcium 8.9 mg/dL (8.6-10.3) 07/16/23 15:10 Total Bilirubin 0.6 mg/dl (0.3-1.0) 07/16/23 15:10 Direct Bilirubin 0.10 mg/dL (0.03-0.18) 07/16/23 15:10 Indirect Bilirubin 0.5 mg/dL 07/16/23 15:10 AST 43 U/L (13-39) H 07/16/23 15:10 ALT 39 U/L (7-52) 07/16/23 15:10 Alkaline Phosphatase 57 U/L (34-104) 07/16/23 15:10 Total Protein 6.8 gm/dL (6.4-8.9) 07/16/23 15:10 Albumin 4.3 gm/dL (3.5-5.7) 07/16/23 15:10 Globulin 2.5 gm/dL 07/16/23 15:10 Albumin/Globulin Ratio 1.7 07/16/23 15:10 Lipase 45.0 U/L (11.0-82.0) 07/16/23 15:10 Urine Color Yellow (Yellow) 07/16/23 15:21 Urine Appearance Clear (Clear) 07/16/23 15:21 Urine pH 7.5 (5.0-9.0) 07/16/23 15:21 Ur Specific [place] 1.006 (1.001-1.030) 07/16/23 15:21 Urine Protein Negative mg/dL (Negative) 07/16/23 15:21 Urine Glucose (UA) Normal mg/dL (Normal) 07/16/23 15:21 Urine Ketones Negative (Negative) 07/16/23 15:21 Urine Occult Blood Negative (Negative) 07/16/23 15:21 Urine Nitrite Negative (Negative) 07/16/23 15:21 Urine Bilirubin Negative (Negative) 07/16/23 15:21 Urine Urobilinogen Normal mg/dL (Normal) 07/16/23 15:21 Ur Leukocyte Esterase Negative (Negative) 07/16/23 15:21 Urine HCG, Qual Negative 07/16/23 15:21 Assessment & Plan Assessment/Plan (1) Intractable vomiting with nausea: (2) Small bowel obstruction: Plan Will admit to medical floor pending transfer to [facility]. Accepted but bed is not available yet Will start the patient on TPN As needed Zofran, resume Reglan also given persistent nausea Frequent electrolyte and renal function given TPN Surgery consultation to assess for bowel obstruction As needed morphine Hypoglycemia protocol, patient has history of hypoglycemia and is on chronic steroids at low-dose as per patient report. Will add prednisone 5 mg daily withparameters to hold if she is hyperglycemic Discussed plan of care with patient and her floor RN Okay to transfer to [facility] if bed is available IP vs OBS Justification Based on differential dx, clinical care plan, and risk of adverse events, if untreated, in my clinical judgement this patient requires an acute care setting as: INPATIENT because of an expectation of an over 2 midnight stay. Estimated length of stay (# of days): 3 Documented By: Camden Rodriguez DO 07/17/23 1114 Signed By: <Electronically signed by Camden Rodriguez DO> 07/17/23 1119 [facility] Work Phone: 1(123) 946-190605-30-2024 [facility] Telephone encounter Note* Telephone Encounter - Natalie Jameson LPN - 07/13/2023 3:06 PM EDT GI Pre-Procedure Spoke with patient: Yes Confirmed date scheduled and patient report time: Yes Procedure Planned:Esophagogastroduodenoscopy(EGD) with or without biopies based on clinical findings, removal of polyps or lesions Is the patient on blood thinners?no Procedure Instructions given to patient: Yes, and they verbalized their understanding of instructions given Patient instructed to take prescribed preparation prior to procedure:Yes, and they verbalized theirunderstanding of instructions given Patient instructed to have family/friend present for procedure transport home:Patient/patient sales and marketing representative was told that if they do not have a responsible adult accompany them to their procedure; and remain in the endoscopy area until they are discharged; that their procedure cannot be done with s edation or anesthesia and may be cancelled. and They verbalized their understanding and agree to have a responsible adult accompany the patient to their procedure and remain in the endoscopy area. Any barriers to Patient learning: Patient/Patient Wheel And Caster Repairer responded appropriately on phone. Type of instruction given: Verbal by telephone contact. Natalie Alarcon LPN [facility]05-28-2024 Miscellaneous Notes* Telephone Encounter - Natalie Shirley LPN - 07/13/2023 3:06 PM EDT GI Pre-Procedure Spoke with patient: Yes Confirmed date scheduled and patient report time: Yes Procedure Planned:Esophagogastroduodenoscopy(EGD) with or without biopies based on clinical findings, removal of polyps or lesions Is the patient on blood thinners?no Procedure Instructions given to patient: Yes, and they verbalized their understanding of instructions given Patient instructed to take prescribed preparation prior to procedure:Yes, and they verbalized theirunderstanding of instructions given Patient instructed to have family/friend present for procedure transport home:Patient/patient sales and marketing representative was told that if they do not have a responsible adult accompany them to their procedure; and remain in the endoscopy area until they are discharged; that their procedure cannot be done with s edation or anesthesia and may be cancelled. and They verbalized their understanding and agree to have a responsible adult accompany the patient to their procedure and remain in the endoscopy area. Any barriers to Patient learning: Patient/Patient Wheel And Caster Repairer responded appropriately on phone. Type of instruction given: Verbal by telephone contact. Natalie Alarcon LPN documented in this encounterMedina Hospital05-28-2024 Note [id number] 07-09-2023 NoteHNO ID: [id number] Author: PABLO LEBRON PSYD Service: ? Author Type: Psychologist Type: Progress Notes Filed: 07/09/2023 09:26 Note Text: Assessment was conducted virtually. Patient is a resident of [place], and completed the assessment virtually in [place]. Psychologist is licensed and stationed in [place]. Informed consent was discussed and verbal assent was granted by the patient. GENERAL PSYCHOLOGY Session #: 5 (session count starts after PSYL NEW EVAL visit) SUBJECTIVE: Managing health conditions (pneumonia, kidney stone, dehydration, nausea, fatigue). Efforts to balance personal health and familial responsibilities/stress. Boundaries with mother (narcissistic, hurtful behavior). Coping tools (journaling, goal setting, daily meditation, brief/light exercise, positive self-talk). Sources of support (, [id number], brothers, grandfather). OBJECTIVE: Utilized cognitive behavioral and solution focused [...] or plan. Insight: Appropriate Judgment: Appropriate ASSESSMENT: Explore and process pt's efforts to manage/balance health conditions and familial responsibilities/stress. Pt reiterates importance of maintaining boundaries with her mother (narcissistic, hurtful behavior). Pt identifies coping tools (journaling, goal setting, daily meditation, brief/light exercise, positive self-talk) and sources of support (, [id number], brothers, grandfather). Pt requests to end session early due to childcare needs. DIAGNOSIS: PRIMARY: 1: Depression, Controlled Generalized Anxiety Disorder Situational Stress PROVISIONAL: Unspecified trauma and stressor related disorder TREATMENT MODALITIES: Cognitive Behavioral Therapy to behavior modifications, cognitive restructuring, self monitoring and increasing pleasurable activities, Solution Focused Psychotherapy, Supportive Therapy PROGRESS TO DATE: Detention Progress: Stable Short Term Condition: Stable GOALS/OBJECTIVES/INTERVENTIONS: To identify and implement tools for effectively managing symptoms of anxiety, stress, and low mood. Approximately 15 minutes were spent with the patient doing therapy. [facility] History of Present illness Narrative* Pablo Lebron, [facility] - 07/09/2023 8:57 AM EDT Assessment was conducted virtually. Patient is a resident of [place], and completed the assessment virtually in [place]. Psychologist is licensed and stationed in [place]. Informed consent was discussed and verbal assent was granted by the patient. GENERAL PSYCHOLOGY Session #: 5 (session count starts after PSYL NEW EVAL visit) SUBJECTIVE: Managing health conditions (pneumonia, kidney stone, dehydration, nausea, fatigue). Efforts to balance personal health and familial responsibilities/stress. Boundaries with mother (narcissistic, hurtful behavior). Coping tools (journaling, goal setting, daily meditation, brief/light exercise, positive self-talk). Sources of support (, [id number], brothers, grandfather). OBJECTIVE: Utilized cognitive behavioral and solution focused [...] or plan. Insight: Appropriate Judgment: Appropriate ASSESSMENT: Explore and process pt's efforts to manage/balance health conditions and familial responsibilities/stress. Pt reiterates importance of maintaining boundaries with her mother (narcissistic, hurtful behavior). Pt identifies coping tools (journaling, goal setting, daily meditation, brief/light exercise, positive self-talk) and sources of support (, [id number], brothers, grandfather). Pt requests to end session early due to childcare needs. DIAGNOSIS: PRIMARY: 1: Depression, Controlled Generalized Anxiety Disorder Situational Stress PROVISIONAL: Unspecified trauma and stressor related disorder TREATMENT MODALITIES: Cognitive Behavioral Therapy to behavior modifications, cognitive restructuring, self monitoring and increasing pleasurable activities, Solution Focused Psychotherapy, Supportive Therapy PROGRESS TO DATE: Sanitation Tank Washer Progress: Stable Short Term Condition: Stable GOALS/OBJECTIVES/INTERVENTIONS: To identify and implement tools for effectively managing symptoms of anxiety, stress, and low mood. Approximately 15 minutes were spent with the patient doing therapy. Pablo Lebron PsyD documented in this encounterMedina [facility]05-21-2024 NoteSum[facility] Nurse Note* Rosanna Blanco OCCA - 07/06/2023 1:55 PM EDT Post Void Residual done on patient with 8 cc residual volume remaining. MD notified. ALLISON Schreiber [facility]05-21-2024 Nurse Note* Rosanna Blanco OCCA - 07/06/2023 1:55 PM EDT Post Void Residual done on patient with 8 cc residual volume remaining. notified. ALLISON Schreiber documented in this encounterMedina Hospital05-21-2024 History of Present illness Narrative* Francisco J Steve MD - 07/06/2023 1:40 PM EDT [facility]IVE [facility] PATIENT HISTORY AND PHYSICAL EXAM PATIENT INFO: Abbey Garcia is a 33 year old female. REFERRING M.D.: Marcos Moreno [address] [place] [address] [place] [address] Moreno for an opinion regarding pelvic organ prolapse, and my final recommendations will be communicated back to the requesting provider by way of shared Medical record, fax or letter via [place] mail. HISTORY CHIEF COMPLAINT: Pelvic Organ Prolapse HPI : Abbey Garcia is a 33 year old female history of Anxiety, Arthritis, Asthma, CPAP (continuous positive airway pressure) dependence, Depression, Dizziness, GERD (gastroesophageal reflux disease),Hypothyroidism, Irritable bowel syndrome, Median arcuate ligament syndrome (CMS/HCC), PCOS (polycystic ovarian syndrome), PONV (postoperative nausea and vomiting), PUD (peptic ulcer disease) who presents for evaluation of pelvic organ prolapse and urinary retention. Patient underwent a median arcuate ligament syndrome laparotomy and release in 02/2023 however afterdeveloped acute postoperative urinary retention. She then had TOV performed prior to her discharge. Patient reports significant urinary incontinence. States that she is having constant incontinence of urine while walking, or sneezing or coughing. She also notes that she has been having worsening urge incontinence to the point that she is not able to make it to the bathroom in time most of the time. She notes this is also happening overnight at times frequently lately. She also reports having stool incontinence both day time and night time. Also reports having recent UTI, that was treated at [facility] (although no records seen of this) and that she required a logn catheter for two weeks due to high amounts in her bladder. No recent dysuria or hematuria. Does endorse some left flank pain. History of three C-sections, no vaginal deliveries QUESTIONNAIRE: Questionnaire: [facility] Ambulatory Visit Intake Questionnaire Question Answer Have you had 2 falls in the last year or 1 fall with injury or currently using an ambulatory assistive device (Walker, Cane, Wheelchair, Crutches, etc.) No Are you having pain associated with this visit? Yes What is your Pain Level? 6 Pain Location Abdomen Pain Description Radiating Pain Duration Amount of Time Duration Units Minutes Pain Frequency Intermittent Intervention/Comfort measure Medication Reposition Cold Heat Pain Comments Pressure You will be receiving medical information during your visit. Is there anything we need to know to help you understand the information you will be given? No Questionnaire: [facility] Additional Demo Question Answer Is this visit related to an accident, other than Workers' Compensation? No Is this visit related to Workers' Compensation? No Do you need an talent acquisition associate? No Questionnaire: [facility] Base Question Answer What is the main problem that you are seeing us for today? Prolapse bladder Bladder Retention How long has this been going on? Months What is the goal of your visit today? Plan of care for catheter and how to fix bladder issues Do you have any leakage with coughing, sneezing, laughing? Yes Do you have the sudden, uncontrollable urge to urinate? Yes Do you have any leakage when you get the urge to urinate? Yes Do you wear pads for urinary protection? Yes If yes, how many per day? 3 How many times do you urinate during the DAY? 8 How many times do you get up at NIGHT to urinate? 2 Do you feel like you have to push to get urine out? Yes When you leave the bathroom, do you feel like your bladder is empty? Yes How many urinary tract/bladder infections (UTIs) have you had in the last 12 months? 4 Have you done pelvic floor or kegel exercises in the past? Yes Have you taken any of the medications listed below for overactive bladder? No If yes, please select all you have tried. None of the above How many cups of total fluid do you drink per day? 8-10 How many cups of caffeinated beverages do you drink per day? 1-2 Are you sexually active? Yes Does it hurt when you have sex? Yes Have you had any pregnancies? Yes If yes, how many? How many Vaginal births? How many C-sections? 3 C-sections Have you gone through menopause? No Have you had a hysterectomy? Yes If yes, for what reason? PCOS Endometriosis Fibroids Have you had any post-menopausal bleeding? No Have you ever had a gynecologic or urologic surgery? Yes If yes, what? Ovarian Cysts Do you have a sense of a vaginal bulge or something hanging from your vagina? Yes Have you ever had blood in your urine? Yes Do you have any bowel problems? Yes If yes, please select all that apply below. Constipation Do you have a history of any diagnosed back problems or neurologic problem? Yes Urinary Distress Inventory (STEFFI 6) Do you experience the following questions? If so how much are you bothered by it. Frequent urination? Moderately Urine leakage related to the feeling of urgency? Moderately Urine leakage related to physical activity, coughing/sneezing? Moderately Small amounts of urine leakage (that is drops)? Moderately Difficulty emptying your bladder? Greatly Pain or discomfort in the lower abdominal or genital area? Greatly Questionnaire: Myc Provider Understanding Current Health Urology Question Answer These questions will help my provider understand my health Strongly Agree Questionnaire: Walt Document/Image Upload Question Answer Photo ID If there are images or documents you'd like to share with your provider during your visit, you may upload up to a total of five files. For body images use the pencil icon to label your image. When labeling the image, please use the following format: The name of the body part followed by the side. For example, Back of Right Forearm or Lower Left Leg. HISTORIES: PAST MEDICAL HISTORY Diagnosis Date Anemia Takes [...] for drug/alcohol abuse in the past. MEDICATIONS: Current Outpatient Medications Medication Sig prochlorperazine (COMPAZINE) 10 mg tablet Take 1 tablet by mouth every 6 hours as needed for nausea/vomiting. acetaminophen (TYLENOL) 325 mg tablet Take 2 tablets by mouth every 4 hours as needed for pain. busPIRone (BUSPAR) 10 mg tablet Take 1 tablet by mouth three times a day. docusate sodium (COLACE) 100 mg capsule Take 1 capsule by mouth two times a day as needed for constipation. polyethylene glycol 3350 (MIRALAX) 17 gram/dose powder Take 17 g by mouth once daily as needed for constipation. levothyroxine (SYNTHROID) 75 mcg tablet Take 1 tablet by mouth once daily. nutritional supplements (NUTREN 2.0) 0.08 gram-2 kcal/mL liqd 45 mL/hr by FEEDING TUBE route continuous infusion starting at 6 pm. Plus 180cc q 4h water flushes. mirtazapine (REMERON) 30 mg tablet Take 1 tablet by mouth daily at bedtime. hydrOXYzine HCl (ATARAX) 25 mg tablet Take 1 tablet by mouth two times a day as needed for anxiety. ketamine 5% nasal spray solution (CPD) 0.1 mL/spray. Use as directed. 1 spray by nose twice per dayx 3 days, then increase to 2 sprays by nose twice per day if tolerated. Added volume to account fordispenser loss. Physician office visit required for refill. (Patient not taking: Reported on 06/18/2023) escitalopram oxalate (LEXAPRO) 20 mg tablet take 1 tablet daily albuterol HFA (PROVENTIL HFA, VENTOLIN HFA) 90 [...] by mouth before meals and at bedtime. (Patient not taking: Reported on 06/18/2023) topiramate (TOPAMAX) 100 mg tablet Take 100 mg by mouth two times a day. liothyronine (CYTOMEL) 5 mcg tablet Take 5 mcg by mouth once daily. No current facility-administered medications for this visit. ALLERGIES: Adhesive Tape-Silicones, Codeine, and Nsaids (Non-Steroidal Anti-Inflammatory Drug) PHYSICAL EXAM: VITAL SIGNS: [facility] 08/19/2020 PHYSICAL EXAM General: Patient in no acute distress HEENT: Non-traumatic, sclera anicteric, EOMI CV: Warm and well perfused Resp: Breathing comfortably on room air GI: Abdomen soft, nondistended, tender Neuro: Alert and Oriented x3 POP-Q: Prolapse noted: Yes Ba = 0, C ,gh = 3, pb = 1, tvl = 4, Bp = 0, D = CYSTOMETRICS: no PVR: 8 mL via bladder US UA: Normal IMPRESSION & PLAN: 33 year old female history of Anxiety, Arthritis, Asthma, CPAP (continuous positive airway pressure) dependence, Depression, Dizziness, GERD (gastroesophageal reflux disease), Hypothyroidism, Irritable bowel syndrome, Median arcuate ligament syndrome (CMS/HCC), PCOS (polycystic ovarian syndrome), PONV (postoperative nausea and vomiting), PUD (peptic ulcer disease). Patient's exam with excellent urethral and vaginal support, no prolapse noted. Discussed with her treatment options for her overactive bladder, including medications such as beta-agonists. 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 Preferred option would be mirabegron based on side effect profile - RTC PRN should further issues arise Electronically signed: Emmy Rose MD STAFF NOTE: I have personally modified the HPI & ROS, performed a PE & a face to face diagnostic evaluation on this patient & discussed the above plan. Signed: Francisco J Steve MD [facility] Electronically signed Medical Decision Making: Problems: Moderate: 2+ stable chronic illnesses Data: Unique source(s) for external note(s) reviewed: 3+ Unique test result(s) reviewed: 2 Risk: Moderate: Moderate risk from testing/treatment and Drug management Medical Decision Making Level: 4 - Moderate [facility]* Tory Mcmullen RN - 07/03/2023 2:27 PM EDT Reviewed discharge with patient, all questions answered, aware of appointments ride downstairs. Pegfeedings stopped and flushed prior to clamping. Patient TPN stopped PICC flushed patient to leave with PICC [facility]05-18-2024 Nurse Note* Tory Mcmullen RN - 07/03/2023 2:27 PM EDT Reviewed discharge with patient, all questions answered, aware of appointments ride downstairs. Pegfeedings stopped and flushed prior to clamping. Patient TPN stopped PICC flushed patient to leave with PICC * Tory Mcmullen RN - 07/03/2023 2:11 PM EDT Long removed per orders, discharge prepared at this time. * Tory Mcmullen RN - 07/03/2023 8:16 AM EDT Assumed care of patient at this time, patient is resting in bed with brake in place and call light in reach denies any needs * Grecia Schaffer RN - 07/03/2023 6:49 AM EDT Chg bath performed by this nurse. Gown and linens changed. Pt ambulated to the bathroom, pt reportsliquid dark, black stool ( not witnessed by nurse). * Yue Ferris RN - 07/02/2023 12:00 PM EDT Upon rounding right upper arm dual lumen PICC with current CHG dressing dry and intact. One port inuse, one with brisk blood return and flushes easily, clamped and Curos cap intact. * Edilia Darby RN - 07/01/2023 1:56 PM EDT CXR from today verifies picc tip in mid SVC. * Edilia Darby RN - 07/01/2023 12:48 PM EDT Patient with Rt arm dual lumen picc, per patient was placed at [facility] about a month ago for TPN infusions. Dressing D&I dated 06/17, TPN currently infusing. Dressing change done using sterile technique, ext catheter at 1 cm, very small amount of redness noted at insertion site otherwise no redness, drainage or swelling, both caps changed, lines flushed easily and with positive blood return, 1 lumen TPN resumed other lumen clamped and curos cap applied. Discussed with RN and a CXR to verify tip placement is needed. RN to jose Young * Mayda Balbuena LPN - 07/01/2023 2:30 AM EDT Pt alert and oriented, long intact, clear yellow urine , medicated twice for left epigastric pain with somewhat effect, TPN running at 83ml/hr, tolerating well, no sign of adverse reaction, pt remain NPO , sips with meds, pt in no acute distress, all safety measures in place, call light within reach. documented in this [facility] Work Phone: 1(399) 938-174205-18-2024 Nurse Note* Tory Mcmullen RN - 07/03/2023 2:11 PM EDT Long removed per orders, discharge prepared at this time. [facility] Work Phone: 1(405) 346-446505-18-2024 History of Present illness Narrative* Dolores Cox MD - 07/03/2023 12:22 PM EDT Abbey Garcia is a 33 y.o. female on day 3 of admission presenting with Epigastric pain. Subjective She presented to the hospital with abdominal pain. She had previously undergone laparoscopic sleeve gastrectomy, on 09/03/2020 at the [facility]. She has a gastrojejunostomy tube. She states that she is supposed to be on tube feeds 45 mL/h continuously, however she has been able to tolerate only 3 to 4 hours that she developed abdominal pain. She also has a PICC line through which she receives TPN. 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 Magaña[address] scan of the abdomen and pelvis showed no acute process. A follow up CT angio of the abdomen and pelvis was also unremarkable. She feels better today. She was started on tube feeds yesterday. She would like to go home. Objective Physical Exam General: awake, alert, oriented, responsive Cardiovascular: regular, normal S1 and S2 Lungs: good air entry bilaterally, clear to auscultation Abdomen: There was a gastrojejunostomy tube in place. Soft, nontender, bowel sounds present, normoactive Extremities: There is a PICC line in the right arm. No peripheral cyanosis, no pedal edema Neuro: alert, oriented x 3, no focal weakness Last Recorded Vitals Blood pressure 99/57, pulse 105, temperature 37 C (98.6 F), temperature source Oral, resp. rate 18,height 1.676 m (5' 6 ), weight 76.2 kg (168 lb), SpO2 100%. Intake/Output last 3 Shifts: I/O last 3 completed shifts: In: 2440.9 (32 mL/kg) [NG/GT:240] Out: 2800 (36.7 mL/kg) [Urine:2800 (1 mL/kg/hr)] Weight: 76.2 kg Relevant Results Lab Results Component Value Date WBC 4.5 07/02/2023 HGB 11.8 (L) 07/02/2023 HCT 35.5 (L) 07/02/2023 MCV 91 07/02/2023 PLT 223 07/02/2023 Lab Results Component Value Date GLUCOSE 101 (H) 07/02/2023 CALCIUM 8.6 07/02/2023 NA 137 07/02/2023 K 3.9 07/02/2023 CO2 23 (L) 07/02/2023 CL 103 07/02/2023 BUN 13 07/02/2023 CREATININE 0.70 07/02/2023 Assessment/Plan Abdominal pain, nausea and vomiting Acute on chronic Noncontrast CT of the abdomen showed no acute changes. A CT angio of the abdomen also showed no acute changes. Asthma Stable Hypertension Stable Hypothyroidism On levothyroxine Gastroesophageal reflux disease Continue proton pump inhibitor She is receiving her clinimix in place of her home TPN for parenteral nutrition. Discharge home. Requesting oral pain medication and antiemetic. Follow up at [facility] for intestinal rehab. Dolores Cox MD * Fadumo Edge RDN, LD - 07/02/2023 2:23 PM EDT Nutrition Progress Note messaged me for tube feed recommendations. Pt is now receiving tube feed and TPN. Nutrition Interventions and Recommendations: Nutrition Prescription: Individualized Nutrition Prescription Provided for : 3175-4070 kcals, 59-71 gm protein via parent[place] enteral nutrition Nutrition Interventions: Food and/or Nutrient Delivery Interventions Interventions: Parenteral nutrition/ IV fluids, Meals and snacks, Enteral intake Meals and Snacks: General healthful diet Goal: advance as able Enteral Intake: Modify composition of enteral nutrition Goal: Recommend Jevity 1.5 goal rate @ 40 mL/hr to provide 1440 kcals, 61 gm protein, 730mL free water. recommend initiating tube feed @ 10 mL/hr and increase by 10 mL Q12H or as tolerated until goalis reached Parenteral Nutrition/IV Fluids: Modify composition of parenteral nutrition Goal: Continue as ordered Formula: TPN standard - AA 5%, dextrose 15% Continuous Rate (mL/hr): 83.3 mL/hr Total Volume (mL/day): 2000 mL/day Total Parenteral Kcal (kcal/day): 1420 kcal/day Total Protein (g/day): 100 g/day Glucose Infusion Rate (GIR) (mg/kg/min): 2.7 mg/kg/min * Zoey Blanco RN - 07/02/2023 10:50 AM EDT Anticipate discharge soon. Surgery and vascular signed off. Patient on TPN and tube feeds at home. Patient was active with RN from [facility] prior to admission. Patient would like to continue with their services post discharge. External referral already placed and sent to [facility]. [facility] will need to be notified via [facility] at the time of discharge. Will follow. 07/02/23 1049 Discharge Planning Home or Post Acute Services In home services Type of Home Care Services Home nursing visits Patient expects to be discharged to: Home with [facility] Does the patient need discharge transport arranged? No * Kina Ann MD - 07/02/2023 8:58 AM EDT Abbey Garcia is a 33 y.o. female on day 2 of admission presenting with Epigastric pain. Subjective Feeling better today, states her pain is under better control. Still having nausea but is improving. Would like to try TF today. Had BM earlier today. Objective Last Recorded Vitals BP 116/71 (BP Location: Left arm, Patient Position: Sitting) Pulse 83 Temp 37 C (98.6 F) (Oral) Resp 17 Wt 76.2 kg (168 lb) SpO2 99% Intake/Output last 3 Shifts: Intake/Output Summary (Last 24 hours) at 07/02/2023 1411 Last data filed at 07/02/2023 1216 Gross per 24 hour Intake 1446.97 ml Output 1200 ml Net 246.97 ml Admission Weight Weight: 76.2 kg (168 lb) (06/29/23 1816) Daily Weight 06/29/23 : 76.2 kg (168 lb) Image Results XR chest 1 view Narrative: Interpreted By: Dotty Salcido, STUDY: XR CHEST 1 VIEW 07/01/2023 1:30 pm INDICATION: Signs/Symptoms:PICC line position verification COMPARISON: 03/17/2023 ACCESSION NUMBER(S): [id number] ORDERING CLINICIAN: DOLORES COX TECHNIQUE: Single AP view chest FINDINGS: Cardiomediastinal silhouette is within normal limits. Right-sided PICC line identified with tip in the region of the mid SVC. No infiltrate or effusion is identified. Visualized osseous structures unremarkable. Impression: 1. Right PICC line placement with tip in the mid SVC. 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 Report Amended Report Amended By: [id number] Magaña MD Date and Time: 06/30/2023 at 12:15:01 PM CONCLUSIONS: Mesenteric: Celiac artery demonstrates no evidence of hemodynamically significant stenosis, SMA demonstrates no evidence of hemodynamically significant stenosis and the KEELY appears widely patent. Thepatient was NPO for this study. There is turbulent flow noted throughout the celiac artery; Dr. Magaña is aware of this finding. Optimization of the celiac artery is sub optimal due to extensive bowel gas. Unable to visualize the splenic and hepatic arteries due to bowel gas. The celiac artery with maneuvers measures 96 cm/s. Additional Findings: Technically difficult exam due to bowel gas. Comparison: Compared with study from 01/14/2023, no significant change.Unable to rule out median arcuate ligament compression in the previous exam. Imaging & Doppler Findings: Aorta PSV 102 cm/s Celiac Origin PSV 92 cm/s Celiac Prox PSV 103 cm/s Celiac Mid PSV 154 cm/s Celiac Dist PSV 188 cm/s SMA Origin PSV 57 cm/s SMA Prox PSV 92 cm/s SMA Mid PSV 110 cm/s SMA Dist PSV 89 cm/s KEELY PSV 105 cm/s [id number] Magaña MD Brandy Magaña MD Electronically Amended 06/30/2023, 12:15 PM Final (Amended) Physical Exam Constitutional: General: She is not in acute distress. Appearance: She is not toxic-appearing. HENT: Head: Normocephalic. Mouth/Throat: Pharynx: Oropharynx is clear. Eyes: General: No scleral icterus. Cardiovascular: Rate and Rhythm: Normal rate. Pulmonary: Effort: No respiratory distress. Breath sounds: No wheezing. Abdominal: General: There is no distension. Palpations: Abdomen is soft. Musculoskeletal: Right lower leg: No edema. Left lower leg: No edema. Neurological: Mental Status: She is alert and oriented to person, place, and time. Relevant Results Assessment/Plan Principal Problem: Epigastric pain Active Problems: Nausea and vomiting Acute renal failure superimposed on chronic kidney disease (CMS-HCC) Hypokalemia Heart failure (Multi) Acute on chronic abdominal pain, nausea, vomiting Evaluated by GI, general surgery, and vascular surgery Per vascular surgery - does not believe patient's symptoms are due to vascular etiology Recommended that patient follow up with Dr. Morel at [facility] for intestinal rehab Start trickle TF today Continue TPN Stop tramadol, switch to percocet as patient has been on this in the past Continue IV morphine for breakthrough pain Zofran PRN Asthma Stable, not in exacerbation HTN Stable Hypothyroidism Continue home synthroid GERD Continue PPI Dispo: if patient is tolerating TF and symptoms are improved tomorrow, will plan to discharge home with [facility]. Kina Ann MD * Shelley Nash, ETHNOARCHAEOLOGY PROFESSOR-STORE CUSTODIAN - 07/01/2023 2:37 PM EDT Abbey Garcia is a 33 y.o. female on day 1 of admission presenting with Epigastric pain. Subjective Having ongoing nausea and vomiting, Still with abdominal pain needing morphine. +bowel function. No fevers or chills. No chest pain or sob. Objective Physical Exam Constitutional: Appearance: Normal appearance. [...] sounds. Abdominal: General: Bowel sounds are normal. There is no distension. Palpations: Abdomen is soft. Tenderness: There is no abdominal tenderness. There is no guarding. Hernia: No hernia is present. Comments: JT present Genitourinary: Rectum: Normal. Musculoskeletal: General: Normal range of motion. Skin: General: Skin is warm and dry. Neurological: General: No focal deficit present. Mental Status: She is alert. Psychiatric: Mood and Affect: Mood normal. Behavior: Behavior normal. Last Recorded Vitals Blood pressure 118/72, pulse 65, temperature 36.6 C (97.9 F), temperature source Oral, resp. rate 18, height 1.676 m (5' 6 ), weight 76.2 kg (168 lb), SpO2 100%. Intake/Output last 3 Shifts: I/O last 3 completed shifts: In: 1240 (16.3 mL/kg) [P.O.:240; I.V.:1000 (13.1 mL/kg)] Out: 2300 (30.2 mL/kg) [Urine:2300 (0.8 mL/kg/hr)] Weight: 76.2 kg Relevant Results Lab Results Component Value Date GLUCOSE 113 (H) 07/01/2023 CALCIUM 8.5 07/01/2023 NA 139 07/01/2023 K 3.9 07/01/2023 CO2 21 (L) 07/01/2023 CL 106 07/01/2023 BUN 12 07/01/2023 CREATININE 0.70 07/01/2023 Lab Results Component Value Date WBC 3.3 (L) 07/01/2023 HGB 12.0 07/01/2023 HCT 36.7 07/01/2023 MCV 95 07/01/2023 PLT 228 07/01/2023 This patient has a central line Reason for the central line remaining today? Parenteral nutrition This patient has a urinary catheter Reason for the urinary catheter remaining today? critically ill patient who need accurate urinary output measurements Assessment/Plan Principal Problem: Epigastric pain Active Problems: Nausea and vomiting Acute renal failure superimposed on chronic kidney disease (CMS-HCC) Hypokalemia Heart failure (Multi) 07/01/23 No surgical interventions planned. Pain management. Will need parenteral feeds as pt unableto tolerate JT feedings. Continue antiemetics, pain management. To follow up with her GI rehab program as previously recommended at [facility]. GS will sign off. I spent 15 minutes in the professional and overall care of this patient. JAMA Greenberg * Zoey Blanco RN - 07/01/2023 12:50 PM EDT Patient not medically clear. TCC met with patient to discuss discharge plans. Patient active with [facility] and would like to continue with RN only. External [facility]. Will follow. 07/01/23 1250 Discharge Planning Home or Post Acute Services In home services Type of Home Care Services Home nursing visits Patient expects to be discharged to: Home with [facility] Does the patient need discharge transport arranged? No Patient Choice Provider Choice list and CMS website (https://medicare.gov/care-compare#search) for post-acute Quality and Resource Measure Data were provided and reviewed with: Patient Patient / Family choosing to utilize agency / facility established prior to hospitalization Yes * Jason Foster APRN-BETH - 07/01/2023 11:49 AM EDT Abbey Garcia is a 33 y.o. female on day 1 of admission presenting with Epigastric pain. Subjective Patient seen and examined. Complaining of nausea even with sips of water. Objective Physical Exam Constitutional: Alert and oriented to person, place, date/time in no acute distress. HEENT: Atraumatic, normocephalic. Neck: Trachea midline. Respiratory: Clear to auscultation. Cardiac: Regular rate and rhythm. No murmurs. Cardiovascular: No edema of the extremities. Pulse exam: Radial and femoral pulses palpable bilateral. Abdominal: Soft, mid epigastric tenderness with palpation, nondistended, bowel sounds present. Musculoskeletal: Moves extremities freely. Dermatological: Clean and dry Neurological: Alert and oriented to person, place, date/time Psych: Calm, cooperative Last Recorded Vitals Blood pressure 118/72, pulse 65, temperature 36.6 C (97.9 F), temperature source Oral, resp. rate 18, height 1.676 m (5' 6 ), weight 76.2 kg (168 lb), SpO2 100%. Intake/Output last 3 Shifts: I/O last 3 completed shifts: In: 1240 (16.3 mL/kg) [P.O.:240; I.V.:1000 (13.1 mL/kg)] Out: 2300 (30.2 mL/kg) [Urine:2300 (0.8 mL/kg/hr)] Weight: 76.2 kg Relevant Results Scheduled medications busPIRone, 10 mg, oral, TID calcium gluconate, 2 g, intravenous, Once escitalopram, 20 mg, oral, Daily famotidine, 20 mg, oral, BID ferrous sulfate (325 mg ferrous sulfate), 1 tablet, oral, Daily with breakfast heparin, 5,000 Units, subcutaneous, q12h levothyroxine, 100 mcg, j-tube, Daily before breakfast liothyronine, 5 mcg, oral, Daily methocarbamol, 750 mg, oral, TID metoclopramide, 5 mg, oral, TID mirtazapine, 30 mg, oral, Nightly pantoprazole, 40 mg, oral, Daily polyethylene glycol, 17 g, oral, BID sodium bicarbonate, 50 mEq, intravenous, Once sodium polystyrene, 30 g, oral, Once topiramate, 100 mg, oral, BID Continuous medications Adult Clinimix Parenteral Nutrition Continuous, 83 mL/hr, Last Rate: 83 mL/hr (06/30/23 214) dextrose 10 % in water (D10W), 75 mL/hr, Last Rate: 75 mL/hr (07/01/23 0444) PRN medications PRN medications: acetaminophen OR acetaminophen, albuterol, alteplase, dextrose, dextrose, glucagon, glucagon, hydrOXYzine HCL, ondansetron, sodium chloride 0.9%, traMADol Vascular US mesenteric artery duplex complete Result Date: 07/01/2023 [place] [id number] Vascular Lab Report 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 Report Amended Report Amended By: [id number] Magaña MD Date and Time: 06/30/2023 at 12:15:01PM CONCLUSIONS: Mesenteric: Celiac artery demonstrates no evidence of hemodynamically significant stenosis, SMA demonstrates no evidence of hemodynamically significant stenosis and the KEELY appears widely patent. The patient was NPO for this study. There is turbulent flow noted throughout the celiacartery; Dr. Magaña is aware of this finding. Optimization of the celiac artery is sub optimal due to extensive bowel gas. Unable to visualize the splenic and hepatic arteries due to bowel gas. The shaquille c artery with maneuvers measures 96 cm/s. Additional Findings: Technically difficult exam due to bowel gas. Comparison: Compared with study from 01/14/2023, no significant change.Unable to rule out median arcuate ligament compression in the previous exam. Imaging & Doppler Findings: Aorta PSV 102 cm/s Celiac Origin PSV 92 cm/s Celiac Prox PSV 103 cm/s Celiac Mid PSV 154 cm/s Celiac Dist PSV 188 cm/s SMA Origin PSV 57 cm/s SMA Prox PSV 92 cm/s SMA Mid PSV 110 cm/s SMA Dist PSV 89 cm/s KEELY PSV 105 cm/s [id number] Magaña MD Brandy Magaña MD Electronically Amended 06/30/2023, 12:15 PM Final (Amended) CT angio abdomen pelvis w and or wo IV IV contrast Result Date: 06/30/2023 Interpreted By: Audie Gutierrez, STUDY: CT ANGIO ABDOMEN PELVIS W AND/OR WO IV IV CONTRAST; 06/30/2023 10:56 am INDICATION: Signs/Symptoms:Celiac disease; COMPARISON: 06/29/2023 ORDERING CLINICIAN: TIFFANIE MENDEZ TECHNIQUE: Contiguous axial images of the abdomen/pelvis were performed with IV contrast. 75 ml of Omnipaque 350 was utilized. Coronal and sagittal reformatted images were also obtained. All CT examinations are performed with 1 or more of the following dose reduction techniques: Automated exposure control, adjustment of mA and/or kv according to patient's size, or use of iterative reconstruction techniques. FINDINGS: The liver, common bile duct, pancreas, spleen, and adrenal glands are stable in appearance. Multiple hypodense lesions consistent with hepatic cysts are again seen. Prior cholecystectomy is again noted. The kidneys enhance symmetrically. No urolithiasis is seen. No hydroureteronephrosis is seen. The visualized aorta is within normal limits. The celiac artery and branches appear patent. The SMA, renal arteries, and inferior mesenteric artery are patent. Normal common iliac and external iliac arteries. Patent internal iliac arteries. Patent vasculature. Additionally, portal venous phase imaging shows normal appearance of the venous structures. 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 There is a jejunostomy tube in place. Small bowel is non- dilated. The appendix is not definitely visualized. Colon is unremarkable with no evidence for acute inflammatory process. No free intraperitoneal air or fluid is seen. The bladder is minimally distended and contains a Long catheter The visualized osseous structures are intact. Limited images of the lower thorax are unremarkable. CT angiogram of the abdomen and pelvis is within normal limits. Patent vasculature as described. Stable appearance of gastric bypass surgery and jejunostomy tube. No abnormal bowel dilatation nor acute inflammatory process is seen. Signed by: Audie Gutierrez 06/30/2023 12:06 PM Dictation workstation: [id number] CT abdomen pelvis wo IV contrast Result Date: 06/29/2023 Interpreted By: Fly West, STUDY: CT ABDOMEN PELVIS WO IV CONTRAST; 06/29/2023 11:09 pm INDICATION: Signs/Symptoms:Abdominal pain. COMPARISON: 03/16/2023 ACCESSION NUMBER(S): [id number] ORDERING CLINICIAN: DAVID VALADEZ TECHNIQUE: Axial CT images of the abdomen and pelvis with coronal and sagittal reconstructed images obtained without intravenous contrast.. FINDINGS: LOWER CHEST: Mild subsegmental atelectasis. LIVER: Numerous scattered hypodense foci, likely reflecting cysts, though incompletely characterized. BILE DUCTS: Normal caliber. GALLBLADDER: Cholecystectomy. PANCREAS: Within normal limits. SPLEEN: Within normal limits. ADRENALS: Within normal limits. KIDNEYS, URETERS, and BLADDER: No hydronephrosis or renal calculi. Ureters are non-dilated. Urinary bladder is decompressed, limiting evaluation. Long catheter in place. REPRODUCTIVE: Status post hysterectomy. No adnexal mass. VESSELS: The aorta and IVC appear normal. RETROPERITONEUM and LYMPH NODES: No lymphadenopathy. Surgical clip near the median arcuate ligament. 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 There is a jejunostomy tube in place. Small bowel is non-dilated. The appendixis not definitely visualized. There is however no pericecal stranding or fluid. Large bowel is normal. PERITONEUM: No ascites or free air, no fluid collection. BODY WALL: Midline abdominal wall scarring. MUSCULOSKELETAL: No acute osseous abnormality or suspicious osseous lesions. There is mild multilevel spinal degenerative change. 1. No acute abdominal or pelvic process. 2. Numerous hepatic hypodense lesions, incompletely characterize, though likely reflecting cysts. Appearance is similar to 03/16/2023. 3. Postsurgical changesas above. Signed by: Fly West 06/29/2023 11:53 PM Dictation workstation: [id number] CT abdomen pelvis w IV contrast Result Date: 06/18/2023 * * *Final Report* * * DATE OF EXAM: Jun 18 2023 2:07PM [facility] 0530 - CT ABD/PEL W IVCON / PROCEDURE REASON: Nausea/vomiting * * * * Physician Interpretation * * * * EXAMINATION: CTABDOMEN AND PELVIS WITH IV CONTRAST CLINICAL HISTORY: [...] contents. Unremarkable bowel wall thickness. Appendix not identi fied. Chronic borderline to mildly distended proximal left upper quadrant jejunal loops about the surgical suture. Pattern does not appear obstructive. Percutaneous jejunostomy balloon in close apposition with the abdominal wall. Lymph nodes: No significant change compared to 11/22/2022, no new or progressive adenopathy Mesentery/Peritoneum: Trace ascites right lower quadrant adjacent to the overdistended urinary bladder. Trace ascites pelvis also present 06/06/2023. Retroperitoneum: No mass. Vasculature: Patent central vessels Pelvis: Trace simple-appearing ascites also present 06/06/2023, less volume than 11/22/2022. Uterus absent. Severely overdistended urinary bladder, volume approximately 1100 mL. Bones/Soft Tissues: No acute osseous abnormality. Unremarkable laparotomy. Unremarkableleft upper abdominal percutaneous jejunostomy site. Lower thorax: [...] 3. No evident bowel obstruction or inflammatory wallthickening. More liquid colonic contents including semisolid contents rectosigmoid may indicate mild enteritis. 4. Chronic mild splenomegaly 5. Trace ascites, also present on previous exams Die Maintenance Technician: PSCB Transcribe Date/Time: Jun 18 2023 3:00P Dictated by : KYLE HERNANDEZ MD This examination was interpreted and the report reviewed and electronically signed by: KYLE HERNANDEZ MD on Jun 18 2023 3:30PM EST CT abdomen pelvis w IV contrast Result Date: 06/06/2023 * * *Final Report* * * DATE OF EXAM: Jun 06 2023 5:47PM [facility] 0530 - CT ABD/PEL W IVCON / PROCEDURE REASON: Abdominal abscess/infection suspected * * * * Physician Interpretation * * * * EXAMINATION: CT ABDOMEN AND PELVIS WITH IV CONTRAST CLINICAL HISTORY: Nausea, vomiting, abdominal pain TECHNIQUE: CT of the abdomen and pelvis was performed using standard technique, scanning from just above the dome of the diaphragm to the symphysis pubis. MQ: CTAP_3 Contrast: IV: [address] Radiation dose: Integrated Dose- length product (DLP) for this visit = 424 mGy*cm. CT Dose Reduction Employed: Automated exposure control(AEC) and iterative recon COMPARISON: Contrastabdomen and pelvic CT dated 12/06/2022, 11/22/2022, 10/25/2022 RESULT: Liver: There is diffusely fatty liver. There are multiple hypodense subcentimeter hepatic cysts, stable. Biliary: No bile duct dilation. The gallbladder is surgically absent. Spleen: No mass. No splenomegaly. Pancreas: No mass or duct dilation. Adrenals: No mass. Kidneys: No renal mass. No hydronephrosis. GI tract: No dilationor wall thickening. Stable postsurgical change of gastric bypass surgery. The percutaneous gastrostomy tube is new since 12/06/2021. Lymph nodes: No abdominal or pelvic lymphadenopathy. Mesentery/Peritoneum: No ascites or mass. Retroperitoneum: No mass. Vasculature: No abdominal aortic aneurysm. Pelvis: No mass, ascites or fluid collection. Bones/Soft Tissues: No significant finding. Lower thorax: Images of the lung bases are clear. Localizer images: No additional findings. IMPRESSION: NO CT EVIDENCE OF ACUTE INTRA-ABDOMINAL PROCESS. NO SIGNIFICANT INTERVAL CHANGE SINCE 12/06/2022. Die Maintenance Technician: PSCOfelia Transcribe Date/Time: Jun 06 2023 7:08P Dictated by : SOUMYA PADILLA MD This examination was interpreted and the report reviewed and electronically signed by: SOUMYA PADILLA MD on Jun 06 2023 7:13PM EST Assessment/Plan Abdominal pain Median arcuate ligament release 03/05/2023 Obesity, status post laparoscopic sleeve gastrectomy in August [address] Ku and Tan-en-Y bypass 01/29/[address] angio and mesenteric duplex both reviewed by Dr. Magaña. Celiac artery, superior mesenteric artery, inferior mesenteric artery all appear widely patent. Do not believe the patient's symptoms are related to a vascular cause. Recommend following up with the [facility] for intestinal rehab as recommended by her GI surgeon, Dr. Kat. Vascular surgery is signing off I spent 35 minutes in the professional and overall care of this patient. JAMA Lynn * Dolores Cox MD - 07/01/2023 11:17 AM EDT Abbey Garcia is a 33 y.o. female on day 1 of admission presenting with Epigastric pain. Subjective She presented to the hospital with abdominal pain. She had previously undergone laparoscopic sleeve gastrectomy, on 09/03/2020 at the [facility]. She has a gastrojejunostomy tube. She states that she is supposed to be on tube feeds 45 mL/h continuously, however she has been able to tolerate only 3 to 4 hours that she developed abdominal pain. She also has a PICC line through which she receives TPN. 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 scan of the abdomen and pelvis showed no acute process. A follow up CT angio of the abdomen and pelvis was also unremarkable. She complaints of pain in the upper abdomen, similar to previous pain. She also complains of nauseaand dry heaves. She is on tramadol every 6 hours and also on scheduled reglan TID. Objective Physical Exam General: awake, alert, oriented, responsive Cardiovascular: regular, normal S1 and S2 Lungs: good air entry bilaterally, clear to auscultation Abdomen: There was a gastrojejunostomy tube in place. Soft, nontender, bowel sounds present, normoactive Extremities: There is a PICC line in the right arm. No peripheral cyanosis, no pedal edema Neuro: alert, oriented x 3, no focal weakness Last Recorded Vitals Blood pressure 118/72, pulse 65, temperature 36.6 C (97.9 F), temperature source Oral, resp. rate 18, height 1.676 m (5' 6 ), weight 76.2 kg (168 lb), SpO2 100%. Intake/Output last 3 Shifts: I/O last 3 completed shifts: In: 1240 (16.3 mL/kg) [P.O.:240; I.V.:1000 (13.1 mL/kg)] Out: 2300 (30.2 mL/kg) [Urine:2300 (0.8 mL/kg/hr)] Weight: 76.2 kg Relevant Results Lab Results Component Value Date WBC 3.3 (L) 07/01/2023 HGB 12.0 07/01/2023 HCT 36.7 07/01/2023 MCV 95 07/01/2023 PLT 228 07/01/2023 Lab Results Component Value Date GLUCOSE 113 (H) 07/01/2023 CALCIUM 8.5 07/01/2023 NA 139 07/01/2023 K 3.9 07/01/2023 CO2 21 (L) 07/01/2023 CL 106 07/01/2023 BUN 12 07/01/2023 CREATININE 0.70 07/01/2023 Assessment/Plan Abdominal pain, nausea and vomiting Acute on chronic Noncontrast CT of the abdomen showed no acute changes. A CT angio of the abdomen also showed no acute changes. Asthma Stable Hypertension Stable Hypothyroidism On levothyroxine Gastroesophageal reflux disease Continue proton pump inhibitor She is receiving her clinimix in place of her home TPN for parenteral nutrition. Symptomatic pain management. Increase frequency of tramadol to every 4 hours. IV morphine x 1 dose.Add p.r.n zofran in addition to scheduled reglan. Dolores Cox MD * Keesha Jack - 07/01/2023 10:47 AM EDT Spiritual Care Visit Clinical Encounter Type Visited With: Patient Routine Visit: Follow-up Continue Visiting: Yes Values/Beliefs Spiritual Requests During Hospitalization: Shikha Jack * Shanique Bradford RN - 06/30/2023 4:43 PM EDT 06/30/23 [id number] Current Planned Discharge Disposition Current Planned Discharge Disposition Home * Shanique Bradford RN - 06/30/2023 4:43 PM EDT 06/30/23 1643 ACS Disability Status Are you deaf or do you have serious difficulty hearing? N Are you blind or do you have serious difficulty seeing, even when wearing glasses? N Because of a physical, mental, or emotional condition, do you have serious difficulty concentrating, remembering, or making decisions? (5 years old or older) N Do you have serious difficulty walking or climbing stairs? N Do you have serious difficulty dressing or bathing? N Because of a physical, mental, or emotional condition, do you have serious difficulty doing errandsalone such as visiting the doctor? N * Shanique Bradford RN - 06/30/2023 4:42 PM EDT 06/30/23 1642 Discharge Planning Living Arrangements Spouse/significant other Support Systems Spouse/significant other Type of Residence Private residence Number of Stairs to Enter Residence 7 Number of Stairs Within Residence 24 (2 story home with a basement) Do you have animals or pets at home? No Who is requesting discharge planning? Provider Home or Post Acute Services None Patient expects to be discharged to: Home Does the patient need discharge transport arranged? No Financial Resource Strain How hard is it for you to pay for the very basics like food, housing, medical care, and heating? Not hard Housing Stability In the last 12 months, was there a time when you were not able to pay the mortgage or rent on time?N In the last 12 months, how many places have you lived? 1 In the last 12 months, was there a time when you did not have a steady place to sleep or slept in ashelter (including now)? N Transportation Needs In the past 12 months, has lack of transportation kept you from medical appointments or from getting medications? no In the past 12 months, has lack of transportation kept you from meetings, work, or from getting things needed for daily living? No Patient Choice Patient / Family choosing to utilize agency / facility established prior to hospitalization No * Shanique Bradford RN - 06/30/2023 4:41 PM EDT 06/30/23 [id number] Physical Activity On average, how many days per week do you engage in moderate to strenuous exercise (like a brisk walk)? 3 days On average, how many minutes do you engage in exercise at this level? 10 min Financial Resource Strain How hard is it for you to pay for the very basics like food, housing, medical care, and heating? Not hard Housing Stability In the last 12 months, was there a time when you were not able to pay the mortgage or rent on time?N In the last 12 months, how many places have you lived? 1 In the last 12 months, was there a time when you did not have a steady place to sleep or slept in ashelter (including now)? N Transportation Needs In the past 12 months, has lack of transportation kept you from medical appointments or from getting medications? no In the past 12 months, has lack of transportation kept you from meetings, work, or from getting things needed for daily living? No Food Insecurity Within the past 12 months, you worried that your food would run out before you got the money to buymore. Never true Within the past 12 months, the food you bought just didn't last and you didn't have money to get more. Never true Stress Do you feel stress - tense, restless, nervous, or anxious, or unable to sleep at night because yourmind is troubled all the time - these days? Rather much (Pt said that her Dr is aware) Social Connections In a typical week, how many times do you talk on the phone with family, friends, or neighbors? Twice a week How often do you get together with friends or relatives? Twice How often do you attend jewish or roman catholic services? More than 4 Do you belong to any clubs or organizations such as jewish groups, unions, fraternal or athletic groups, or school groups? No How often do you attend meetings of the clubs or organizations you belong to? Never Are you , , , , never , or living with a partner? Intimate Partner Violence Within the last year, have you been afraid of your partner or ex-partner? No Within the last year, have you been humiliated or emotionally abused in other ways by your partner or ex-partner? No Within the last year, have you been kicked, hit, slapped, or otherwise physically hurt by your partner or ex-partner? No Within the last year, have you been raped or forced to have any kind of sexual activity by your partner or ex-partner? No Alcohol Use Q1: How often do you have a drink containing alcohol? Never Q2: How many drinks containing alcohol do you have on a typical day when you are drinking? None Q3: How often do you have six or more drinks on one occasion? Never Utilities In the past 12 months has the [employer], [employer], [employer], or water [employer] threatened to shut off services in your home? No Health Literacy How often do you need to have someone help you when you read instructions, pamphlets, or other written material from your doctor or pharmacy? Never * Dolores Cox MD - 06/30/2023 3:46 PM EDT Abbey Garcia is a 33 y.o. female on day 0 of admission presenting with Epigastric pain. Subjective She presented to the hospital with abdominal pain. She underwent laparoscopic sleeve gastrectomy, on 09/03/2020 at the [facility]. She had a gastrojejunostomy tube. She states that she is supposed to be on tube feeds 45 mL/h continuously, however she has been able to tolerate only 3 to 4 hours that she developed abdominal pain. She also has a PICC line through which she receives TPN. 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aña[address] scan of the abdomen and pelvis showed no acute process. Objective Physical Exam General: awake, alert, oriented, responsive Cardiovascular: regular, normal S1 and S2 Lungs: good air entry bilaterally, clear to auscultation Abdomen: There was a gastrojejunostomy tube in place. Soft, nontender, bowel sounds present, normoactive Extremities: There is a PICC line in the right arm. No peripheral cyanosis, no pedal edema Neuro: alert, oriented x 3, no focal weakness Last Recorded Vitals Blood pressure 116/76, pulse 72, temperature 36.9 C (98.4 F), resp. rate 16, height 1.676 m (5' 6 ), weight 76.2 kg (168 lb), SpO2 100%. Intake/Output last 3 Shifts: No intake/output data recorded. Relevant Results Lab Results Component Value Date WBC 5.0 06/30/2023 HGB 10.8 (L) 06/30/2023 HCT 32.2 (L) 06/30/2023 MCV 93 06/30/2023 PLT 217 06/30/2023 Lab Results Component Value Date GLUCOSE 136 (H) 06/30/2023 CALCIUM 8.8 06/30/2023 NA 137 06/30/2023 K 3.9 06/30/2023 CO2 23 (L) 06/30/2023 CL 104 06/30/2023 BUN 14 06/30/2023 CREATININE 0.60 06/30/2023 Assessment/Plan Abdominal pain, nausea and vomiting Acute on chronic Noncontrast CT of the abdomen showed no acute changes. A CT angio of the abdomen also showed no acute changes. Asthma Stable Hypertension Stable Hypothyroidism On levothyroxine Gastroesophageal reflux disease Continue proton pump inhibitor She is receiving her home TPN for nutrition. Symptomatic pain management. Dolores Cxo MD * Mariela Tesfaye, PharmD - 06/30/2023 10:31 AM EDT Pharmacy Medication History Review Abbey Garcia is a 33 y.o. female admitted for Epigastric pain. Pharmacy reviewed the patient's [id number] medications and allergies for accuracy. Medications ADDED: Methocarbamol 750 mg TID Medications CHANGED: Buspirone 10 mg Mirtazapine 30 mg Miralax Topiramate 100 mg Medications REMOVED: Diazepam 5 mg Percocet 5 mg/325 mg The list below reflects the updated [facility] [employer] list. Comments regarding how patient may be taking medications differently can be found in the Admit Orders Activity Prior to Admission Medications Prescriptions Last Dose Informant acetaminophen (Tylenol) 325 mg tablet Past Week Self Sig: Take 2 tablets (650 mg) by mouth every 4 hours if needed for mild pain (1 - 3). albuterol 90 mcg/actuation inhaler 06/28/2023 Self Sig: Inhale 2 puffs every 4 hours if needed for wheezing or shortness of breath. busPIRone (Buspar) 10 mg tablet 06/30/2023 Self Sig: Take 1 tablet (10 mg) by mouth 3 times a day. diazePAM (Valium) 5 mg tablet Self Sig: Take 1 tablet (5 mg) by mouth every 8 hours if needed for muscle spasms (Advised against taking with edibles). diazePAM (Valium) 5 mg tablet Self Sig: Take 1 tablet (5 mg) by mouth every 8 hours if needed for muscle spasms. escitalopram (Lexapro) 20 mg tablet 06/29/2023 Self Sig: Take 1 tablet (20 mg) by mouth once daily. famotidine (Pepcid) 20 mg tablet 06/29/2023 Self Sig: Take 1 tablet (20 mg) by mouth 2 times a day. ferrous sulfate 325 (65 Fe) MG tablet 06/28/2023 Self Sig: Take 1 tablet by mouth once daily with breakfast. hydrOXYzine HCL (Atarax) 25 mg tablet 06/28/2023 Self Sig: Take 1 tablet (25 mg) by mouth once daily as needed for anxiety. levothyroxine (Synthroid, Levoxyl) 100 mcg tablet 06/30/2023 Self Sig: Take 1 tablet (100 mcg) by mouth once daily. liothyronine (Cytomel) 5 mcg tablet 06/29/2023 Self Sig: Take 1 tablet (5 mcg) by mouth once daily. methocarbamol (Robaxin) 750 mg tablet 06/29/2023 Self Sig: Take 1 tablet (750 mg) by mouth 3 times a day. metoclopramide (Reglan) 10 mg tablet 06/30/2023 Self Sig: Take 0.5 tablets (5 mg) by mouth 3 times a day with meals. mirtazapine (Remeron) 15 mg tablet 06/28/2023 Self Sig: Take 2 tablets (30 mg) by mouth once daily at bedtime. nutritional drink (Ensure High Protein) liquid 06/28/2023 Self Sig: Take 90 bottles by mouth every 30 (thirty) days. Take one 237mL bottles TID with meals for 30 days ondansetron ODT (Zofran-ODT) 4 mg disintegrating tablet 06/29/2023 Self Sig: Take 1 tablet (4 mg) by mouth every 8 hours if needed for nausea. oxyCODONE-acetaminophen (Percocet) 5-325 mg tablet Self Sig: Take 1 tablet by mouth every 6 hours if needed for severe pain (7 - 10) (Advised against taking with edibles). oxyCODONE-acetaminophen (Percocet) 5-325 mg tablet Self Sig: Take 1 tablet by mouth every 6 hours if needed for severe pain (7 - 10). pantoprazole (ProtoNix) 40 mg EC tablet 06/29/2023 Self Sig: Take 1 tablet (40 mg) by mouth once daily in the morning. Take before meals. polyethylene glycol (Glycolax, Miralax) 17 gram/dose powder 06/29/2023 Self Sig: Take 17 g by mouth 2 times a day. topiramate (Topamax) 100 mg tablet 06/30/2023 Self Sig: Take 1 tablet (100 mg) by mouth 2 times a day. HEADACHES Facility-Administered Medications: None The list below reflects the updated allergy list. Please review each documented allergy for additional clarification and justification. Allergies Reviewed by Bailey Wiley RN on 06/29/2023 Severity Reactions Comments Codeine Medium Nausea/vomiting Nsaids (non-steroidal Anti-inflammatory Drug) Low Nausea/vomiting Pharmacy has been updated to [facility] Sources used to complete the med history include patient interview, SOLE SEWER HAND list, dispense history Below are additional concerns with the patient's SOLE SEWER HAND list. -Pt is no longer taking diazepam or Percocet -Added methocarbamol 750 mg TID -Buspirone, mirtazapine, Miralax and topiramate doses have changed Mariela Tesfaye PharmD Please reach out via Pull Secure Chat for questions * Sherry Magaña MD - 06/30/2023 8:25 AM EDT Images from the original note were not included. Patient with midepigastric abdominal pain and left upper quadrant abdominal pain when taking po's or tube feeds. Also experieinces hypoglycemic episodes. Exam as above -midepigastric pain. CT scan without contrast without significant findings. Had recommended CT with contrast/CTA. Mesenteric duplexordered and planned for today. . Barring any vascular pathology, her problems are gastrointestinal. Spoke with Dr. Deacon Kat, her general surgeon at [facility]. The plan from them is a referralto [facility] intestinal rehabilitation. Patient to follow up with Dr. Kats office. 06/30/23 at 8:28 AM - Sherry Magaña MD Addendum: There is conclusively no vascular etiology for patient's current pain syndrome. Needs to be referred ultimately to Dr. Deacon Kat and Intestinal Rehab unit at [facility] after stabilization. Duplex shows no compression of celiac axis or internal lesions. There is no stenosis of the celiac axis or SMA. CTA reviewed. No vascular compression documented in this [facility] Work Phone: [phone]) 826-436805-18-2024 Plan of care note* Care Plan - Tory Mcmullen RN - 07/03/2023 10:57 AM EDT The patient's goals for the shift include feel better The clinical goals for the shift include Tolerate increase in tube feeding Problem: Nutrition Goal: Less than 5 days NPO/clear liquids Outcome: Progressing Goal: Oral intake greater than 50% Outcome: Progressing Goal: Oral intake greater 75% Outcome: Progressing Goal: Consume prescribed supplement Outcome: Progressing Goal: Adequate PO fluid intake Outcome: Progressing Goal: Nutrition support goals are met within 48 hrs Outcome: Progressing Goal: Nutrition support is meeting 75% of nutrient needs Outcome: Progressing Goal: Tube feed tolerance Outcome: Progressing Goal: BG 80-180 mg/dL Outcome: Progressing Goal: Lab values WNL Outcome: Progressing Goal: Electrolytes WNL Outcome: Progressing Goal: Promote healing Outcome: Progressing Goal: Maintain stable weight Outcome: Progressing Goal: Reduce weight from edema/fluid Outcome: Progressing Goal: Gradual weight gain Outcome: Progressing Goal: Improve ostomy output Outcome: Progressing Problem: Skin Goal: Decreased wound size/increased tissue granulation at next dressing change Outcome: Progressing Flowsheets (Taken 07/03/2023 1056) Decreased wound size/increased tissue granulation at next dressing change: Protective dressings over bony prominences Goal: Participates in plan/prevention/treatment measures Outcome: Progressing Flowsheets (Taken 07/03/2023 1056) Participates in plan/prevention/treatment measures: Elevate heels Increase activity/out of bed for meals Goal: Prevent/manage excess moisture Outcome: Progressing Flowsheets (Taken 07/03/2023 1056) Prevent/manage excess moisture: Cleanse incontinence/protect with barrier cream Moisturize dry skin Goal: Prevent/minimize sheer/friction injuries Outcome: Progressing Flowsheets (Taken 07/03/2023 1056) Prevent/minimize sheer/friction injuries: Increase activity/out of bed for meals HOB 30 degrees or less Turn/reposition every 2 hours/use positioning/transfer devices Goal: Promote/optimize nutrition Outcome: Progressing Flowsheets (Taken 07/03/2023 1056) Promote/optimize nutrition: Assist with feeding Offer water/supplements/favorite foods Goal: Promote skin healing Outcome: Progressing Flowsheets (Taken 07/03/2023 105) Promote skin healing: Turn/reposition every 2 hours/use positioning/transfer devices Protective dressings over bony prominences Problem: Fall/Injury Goal: Not fall by end [...] pain meds throughout the shift Outcome: Progressing Problem: Heart Failure Goal: Improved gas exchange this shift Outcome: Progressing Goal: Improved urinary output this shift Outcome: Progressing Goal: Reduction in peripheral edema within 24 hours Outcome: Progressing Goal: Report improvement of dyspnea/breathlessness this shift Outcome: Progressing Goal: Weight from fluid excess reduced over 2-3 days, then stabilize Outcome: Progressing Goal: Increase self care and/or family involvement in 24 hours Outcome: Progressing Problem: Pain - Adult Goal: Verbalizes/displays adequate comfort level or baseline comfort level Outcome: Progressing Problem: Chronic Conditions and Co-morbidities Goal: Patient's chronic conditions and co-morbidity symptoms are monitored and maintained or improved Outcome: Progressing [facility] Work Phone: [phone]) 475-517705-18-2024 Miscellaneous Notes* Care Plan - Tory Mcmullen RN - 07/03/2023 10:57 AM EDT The patient's goals for the shift include feel better The clinical goals for the shift include Tolerate increase in tube feeding Problem: Nutrition Goal: Less than 5 days NPO/clear liquids Outcome: Progressing Goal: Oral intake greater than 50% Outcome: Progressing Goal: Oral intake greater 75% Outcome: Progressing Goal: Consume prescribed supplement Outcome: Progressing Goal: Adequate PO fluid intake Outcome: Progressing Goal: Nutrition support goals are met within 48 hrs Outcome: Progressing Goal: Nutrition support is meeting 75% of nutrient needs Outcome: Progressing Goal: Tube feed tolerance Outcome: Progressing Goal: BG 80-180 mg/dL Outcome: Progressing Goal: Lab values WNL Outcome: Progressing Goal: Electrolytes WNL Outcome: Progressing Goal: Promote healing Outcome: Progressing Goal: Maintain stable weight Outcome: Progressing Goal: Reduce weight from edema/fluid Outcome: Progressing Goal: Gradual weight gain Outcome: Progressing Goal: Improve ostomy output Outcome: Progressing Problem: Skin Goal: Decreased wound size/increased tissue granulation at next dressing change Outcome: Progressing Flowsheets (Taken 07/03/2023 1056) Decreased wound size/increased tissue granulation at next dressing change: Protective dressings over bony prominences Goal: Participates in plan/prevention/treatment measures Outcome: Progressing Flowsheets (Taken 07/03/2023 1056) Participates in plan/prevention/treatment measures: Elevate heels Increase activity/out of bed for meals Goal: Prevent/manage excess moisture Outcome: Progressing Flowsheets (Taken 07/03/2023 1056) Prevent/manage excess moisture: Cleanse incontinence/protect with barrier cream Moisturize dry skin Goal: Prevent/minimize sheer/friction injuries Outcome: Progressing Flowsheets (Taken 07/03/20236) Prevent/minimize sheer/friction injuries: Increase activity/out of bed for meals HOB 30 degrees or less Turn/reposition every 2 hours/use positioning/transfer devices Goal: Promote/optimize nutrition Outcome: Progressing Flowsheets (Taken 07/03/2023 105) Promote/optimize nutrition: Assist with feeding Offer water/supplements/favorite foods Goal: Promote skin healing Outcome: Progressing Flowsheets (Taken 07/03/2023 105) Promote skin healing: Turn/reposition every 2 hours/use positioning/transfer devices Protective dressings over bony prominences Problem: Fall/Injury Goal: Not fall by end [...] pain meds throughout the shift Outcome: Progressing Problem: Heart Failure Goal: Improved gas exchange this shift Outcome: Progressing Goal: Improved urinary output this shift Outcome: Progressing Goal: Reduction in peripheral edema within 24 hours Outcome: Progressing Goal: Report improvement of dyspnea/breathlessness this shift Outcome: Progressing Goal: Weight from fluid excess reduced over 2-3 days, then stabilize Outcome: Progressing Goal: Increase self care and/or family involvement in 24 hours Outcome: Progressing Problem: Pain - Adult Goal: Verbalizes/displays adequate comfort level or baseline comfort level Outcome: Progressing Problem: Chronic Conditions and Co-morbidities Goal: Patient's chronic conditions and co-morbidity symptoms are monitored and maintained or improved Outcome: Progressing * Care Plan - Grecia Schaffer RN - 07/02/2023 11:42 PM EDT Problem: Pain Goal: Takes deep breaths with improved pain control throughout the shift Outcome: Progressing Problem: Pain Goal: Turns in bed with improved pain control throughout the shift Outcome: Progressing Problem: Pain Goal: Walks with improved pain control throughout the shift Outcome: Progressing Problem: Pain Goal: Performs ADL's with improved pain control throughout shift Outcome: Progressing Problem: Fall/Injury Goal: Be free from injury by end of the shift Outcome: Progressing Problem: Fall/Injury Goal: Not fall by end of shift Outcome: Progressing The patient's goals for the shift include feel better The clinical goals for the shift include pain management Over the shift, the patient did make progress toward the following goals. * Care Plan - Beatriz Dow RN - 07/01/2023 3:04 PM EDT The patient's goals for the shift include feel better The clinical goals for the shift include nutrition and pain control Problem: Nutrition Goal: Less than 5 days NPO/clear liquids Outcome: Progressing Goal: Oral intake greater than 50% Outcome: Progressing Goal: Oral intake greater 75% Outcome: Progressing Goal: Consume prescribed supplement Outcome: Progressing Goal: Adequate PO fluid intake Outcome: Progressing Goal: Nutrition support goals are met within 48 hrs Outcome: Progressing Goal: Nutrition support is meeting 75% of nutrient needs Outcome: Progressing Goal: Tube feed tolerance Outcome: Progressing Goal: BG 80-180 mg/dL Outcome: Progressing Goal: Lab values WNL Outcome: Progressing Goal: Electrolytes WNL Outcome: Progressing Goal: Promote healing Outcome: Progressing Goal: Maintain stable weight Outcome: Progressing Goal: Reduce weight from edema/fluid Outcome: Progressing Goal: Gradual weight gain Outcome: Progressing Goal: Improve ostomy output Outcome: Progressing Problem: Skin Goal: Decreased wound [...] pain meds throughout the shift Outcome: Progressing Problem: Heart Failure Goal: Improved gas exchange this shift Outcome: Progressing Goal: Improved urinary output this shift Outcome: Progressing Goal: Reduction in peripheral edema within 24 hours Outcome: Progressing Goal: Report improvement of dyspnea/breathlessness this shift Outcome: Progressing Goal: Weight from fluid excess reduced over 2-3 days, then stabilize Outcome: Progressing Goal: Increase self care and/or family involvement in 24 hours Outcome: Progressing Problem: Pain - Adult Goal: Verbalizes/displays adequate comfort level or baseline comfort level Outcome: Progressing Problem: Chronic Conditions and Co-morbidities Goal: Patient's chronic conditions and co-morbidity symptoms are monitored and maintained or improved Outcome: Progressing * Care Plan - Mayda Balbuena LPN - 06/30/2023 10:12 PM EDT The patient's goals for the shift include feel better The clinical goals for the shift include pain control * Care Plan - Shanique Bradford RN - 06/30/2023 4:47 PM EDT Pt has a POA and Living Will --not on file ADOD: 2-3 days Pt lives at home with her ; she lives in a 2 story home with a basement and 6-7 steps to enter. She does not use home 02, she has a cpap machine that she wears on and off. No cane or walker. She is being tx for both depression and anxiety; she denies S.I. She does not work, independent with ADL's. 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 She wears glasses, no hearing aids. Her PCP is in [facility]; and she uses [facility] [address] in [facility]. She has a hx of gastric bypass, c/o abd pain. No anticipated discharge needs. DISCHARGE PLAN: HOME WITH [facility] Phone: [phone]) [phone] Nurse Note* Tory Mcmullen RN - 07/03/2023 8:16 AM EDT Assumed care of patient at this time, patient is resting in bed with brake in place and call light in reach denies any needs [facility] Work Phone: [phone] Nurse Note* Grecia Schaffer RN - 07/03/2023 6:49 AM EDT Chg bath performed by this nurse. Gown and linens changed. Pt ambulated to the bathroom, pt reportsliquid dark, black stool ( not witnessed by nurse). [facility]05-17-2024 Plan of care note* Care Plan - Grecia Schaffer RN - 07/02/2023 11:42 PM EDT Problem: Pain Goal: Takes deep breaths with improved pain control throughout the shift Outcome: Progressing Problem: Pain Goal: Turns in bed with improved pain control throughout the shift Outcome: Progressing Problem: Pain Goal: Walks with improved pain control throughout the shift Outcome: Progressing Problem: Pain Goal: Performs ADL's with improved pain control throughout shift Outcome: Progressing Problem: Fall/Injury Goal: Be free from injury by end of the shift Outcome: Progressing Problem: Fall/Injury Goal: Not fall by end of shift Outcome: Progressing The patient's goals for the shift include feel better The clinical goals for the shift include pain management Over the shift, the patient did make progress toward the following goals. [facility] Work Phone: [phone] 116-874905-17-2024 Nurse Note* Yue Ferris RN - 07/02/2023 12:00 PM EDT Upon rounding right upper arm dual lumen PICC with current CHG dressing dry and intact. One port inuse, one with brisk blood return and flushes easily, clamped and Curos cap intact. T [facility]05-16-2024 Plan of care note* Care Plan - Beatriz Dow RN - 07/01/2023 3:04 PM EDT The patient's goals for the shift include feel better The clinical goals for the shift include nutrition and pain control Problem: Nutrition Goal: Less than 5 days NPO/clear liquids Outcome: Progressing Goal: Oral intake greater than 50% Outcome: Progressing Goal: Oral intake greater 75% Outcome: Progressing Goal: Consume prescribed supplement Outcome: Progressing Goal: Adequate PO fluid intake Outcome: Progressing Goal: Nutrition support goals are met within 48 hrs Outcome: Progressing Goal: Nutrition support is meeting 75% of nutrient needs Outcome: Progressing Goal: Tube feed tolerance Outcome: Progressing Goal: BG 80-180 mg/dL Outcome: Progressing Goal: Lab values WNL Outcome: Progressing Goal: Electrolytes WNL Outcome: Progressing Goal: Promote healing Outcome: Progressing Goal: Maintain stable weight Outcome: Progressing Goal: Reduce weight from edema/fluid Outcome: Progressing Goal: Gradual weight gain Outcome: Progressing Goal: Improve ostomy output Outcome: Progressing Problem: Skin Goal: Decreased wound [...] pain meds throughout the shift Outcome: Progressing Problem: Heart Failure Goal: Improved gas exchange this shift Outcome: Progressing Goal: Improved urinary output this shift Outcome: Progressing Goal: Reduction in peripheral edema within 24 hours Outcome: Progressing Goal: Report improvement of dyspnea/breathlessness this shift Outcome: Progressing Goal: Weight from fluid excess reduced over 2-3 days, then stabilize Outcome: Progressing Goal: Increase self care and/or family involvement in 24 hours Outcome: Progressing Problem: Pain - Adult Goal: Verbalizes/displays adequate comfort level or baseline comfort level Outcome: Progressing Problem: Chronic Conditions and Co-morbidities Goal: Patient's chronic conditions and co-morbidity symptoms are monitored and maintained or improved Outcome: Progressing [facility]05-16-2024 Nurse Note* Edilia Darby RN - 07/01/2023 1:56 PM EDT CXR from today verifies picc tip in mid SVC. [facility]-16-2024 Nurse Note* Edilia Darby RN - 07/01/2023 12:48 PM EDT Patient with Rt arm dual lumen picc, per patient was placed at [facility] about a month ago for TPN infusions. Dressing D&I dated 06/17, TPN currently infusing. Dressing change done using sterile technique, ext catheter at 1 cm, very small amount of redness noted at insertion site otherwise no redness, drainage or swelling, both caps changed, lines flushed easily and with positive blood return, 1 lumen TPN resumed other lumen clamped and curos cap applied. Discussed with RN and a CXR to verify tip placement is needed. RN to message [facility] Work Phone: [phone]) 277-666705-16-2024 Consult note* Fadumo Edge RDN, [place] - 07/01/2023 10:30 AM EDTAssociated Order(s): IP CONSULT TO NUTRITION SERVICES Nutrition Assessement Note Nutrition Assessment Reason for Assessment: Provider consult order Spoke with pt at bedside. Pt has a Hx of gastric by pass 2 years ago, J-tube. Pt reported to be on Nutren 2.0 @ 45 mL/hr over 18 hours (provides 1620 kcals, 68 gm protein, 561 mL free water), also TPN @ 80 mL/hr over 24 hours. Pt is unsure of formula of at home TPN. Pt reported to have stopped tubefeed 3 days ago d/t nausea, dry heaves and vomiting. Pt stated that she tried to drink clear liquids and Ensure at home and it is hit or miss if she will tolerate it. Per MD, wants to hold tube feed d/t intolerance. Pt is noted to be on D10 and TPN. 1 BG reading on 06/28 was 920 mg/dL, rest of BG have been stable between 77-117 mg/dl. Pt is requesting to be on a clear liquid diet. Reason for Hospital Admission: Abbey Garcia is a 33 y.o. female who is admitted for epigastric pain. Past Medical History: Diagnosis Date Acute renal failure superimposed on chronic kidney disease ([facility]) 06/29/2023 Anxiety Arthritis Asthma ([facility]) CPAP (continuous positive airway pressure) dependence Depression Disease of thyroid gland Dizziness GERD (gastroesophageal reflux disease) Hypothyroidism Irritable bowel syndrome with constipation Median arcuate ligament syndrome ([facility]) PCOS (polycystic ovarian syndrome) PONV (postoperative nausea and vomiting) PUD (peptic ulcer disease) Shortness of breath Past Surgical History: Procedure Laterality Date APPENDECTOMY SECTION, CLASSIC x3 CHOLECYSTECTOMY CT ABDOMEN PELVIS ANGIOGRAM W AND/OR WO IV CONTRAST 12/14/2022 CT ABDOMEN PELVIS ANGIOGRAM W AND/OR WO IV CONTRAST 12/14/2022 ERCP W/ SPHINCTEROTOMY AND BALLOON DILATION GASTRIC BYPASS 01/2022 Nutrition History: Food and Nutrient History: Pt is currently NPO. Pt is unsure the last time she ate PO. Pt stated that she tried clear liquids and an Ensure at home. pt stated it is hit or miss if she tolerates. Food Allergies/Intolerances: None GI Symptoms: Diarrhea and Nausea Oral Problems: None Anthropometrics: Ht: 167.6 cm (5' 6 ), Wt: 76.2 kg (168 lb), BMI: 27.13 IBW/kg (Dietitian Calculated): 59.09 kg Weight Change: Daily Weight 06/29/23 : 76.2 kg (168 lb) 06/22/23 : 76.2 kg (168 lb) 03/16/23 : 92.7 kg (204 lb 5.9 oz) 03/10/23 : 83.4 kg (183 lb 13.8 oz) 03/02/23 : 83.5 kg (184 lb 1.4 oz) 01/13/23 : 81.6 kg (180 lb) Weight History / % Weight Change: Pt reported UBW to be ~180#. Per chart, pt has lost 16# (8.7%) over 4 months Significant Weight Loss: Yes Interpretation of Weight Loss: >7.5% in 3 months Nutrition Focused Physical Exam Findings: Nutrition Significant Labs: Lab Results Component Value Date WBC 3.3 (L) 07/01/2023 HGB 12.0 07/01/2023 HCT 36.7 07/01/2023 PLT 228 07/01/2023 ALT 34 06/30/2023 AST 43 (H) 06/30/2023 NA 139 07/01/2023 K 3.9 07/01/2023 CL 106 07/01/2023 CREATININE 0.70 07/01/2023 BUN 12 07/01/2023 CO2 21 (L) 07/01/2023 HGBA1C 5.1 11/08/2019 Nutrition Specific Medications: busPIRone, 10 mg, oral, TID calcium gluconate, 2 g, intravenous, Once escitalopram, 20 mg, oral, Daily famotidine, 20 mg, oral, BID ferrous sulfate (325 mg ferrous sulfate), 1 tablet, oral, Daily with breakfast heparin, 5,000 Units, subcutaneous, q12h levothyroxine, 100 mcg, j-tube, Daily before breakfast liothyronine, 5 mcg, oral, Daily methocarbamol, 750 mg, oral, TID metoclopramide, 5 mg, oral, TID mirtazapine, 30 mg, oral, Nightly pantoprazole, 40 mg, oral, Daily polyethylene glycol, 17 g, oral, BID sodium bicarbonate, 50 mEq, intravenous, Once sodium polystyrene, 30 g, oral, Once topiramate, 100 mg, oral, BID Adult Clinimix Parenteral Nutrition Continuous, 83 mL/hr, Last Rate: 83 mL/hr (06/30/23 2141) dextrose 10 % in water (D10W), 75 mL/hr, Last Rate: 75 mL/hr (07/01/23 0444) Dietary Orders (From admission, onward) Start Ordered 06/30/231747 May Participate in Room Service Once Question: . Answer: Yes 06/30/23174706/30/23 022 NPO Diet Except: Sips with meds; Effective now Diet effective now Question: Except: Answer: Sips with meds 06/30/23 0230 Nutrition Support Intake provides: 1420 kcals, 100 gm protein, 2000 mL total volume Estimated Needs: Estimated Energy Needs Total Energy Estimated Needs (kCal): (3691-4181) Total Estimated Energy Need per Day (kCal/kg): (25-30) Method for Estimating Needs: ABW Estimated Protein Needs Total Protein Estimated Needs (g): (59-71) Total Protein Estimated Needs (g/kg): (1-1.2) Method for Estimating Needs: ABW Estimated Fluid Needs Total Fluid Estimated Needs (mL): (5657-9890) Method for Estimating Needs: 1 mL/kcal Nutrition Diagnosis Nutrition Diagnosis: Nutrition Diagnosis Patient has Nutrition Diagnosis: Yes Diagnosis Status (1): New Nutrition Diagnosis 1: Altered GI function Related to (1): physiological causes As Evidenced by (1): need for TPN, cannot tolerate PO/ tube feed Nutrition Interventions/Recommendations Nutrition Interventions and Recommendations: Nutrition Prescription: Individualized Nutrition Prescription Provided for : 4397-6812 kcals, 59-71 gm protein via parentalnutrition Nutrition Interventions: Food and/or Nutrient Delivery Interventions Interventions: Parenteral nutrition/ IV fluids, Meals and snacks Meals and Snacks: General healthful diet Goal: advance as able Parenteral Nutrition/IV Fluids: Modify composition of parenteral nutrition Goal: Continue as ordered Formula: TPN standard - AA 5%, dextrose 15% Continuous Rate (mL/hr): 83.3 mL/hr Total Volume (mL/day): 2000 mL/day Total Parenteral Kcal (kcal/day): 1420 kcal/day Total Protein (g/day): 100 g/day Education Documentation No documentation found. Nutrition Monitoring and Evaluation Monitoring/Evaluation: Food/Nutrient Related History Monitoring Monitoring and Evaluation Plan: Enteral and parenteral nutrition intake Enteral and Parenteral Nutrition Intake: Parenteral nutrition formula/solution Criteria: will monitor for TPN tolerance Time Spent/Follow-up: Follow Up Time Spent (min): 30 minutes Last Date of Nutrition Visit: 07/01/23 Nutrition Follow-Up Needed?: 3-5 days Follow up Comment: 07/05/23 [facility] Work Phone: [phone] Consult note* Fadumo Edge RDN, LD - 07/01/2023 10:30 AM EDTAssociated Order(s): IP CONSULT TO NUTRITION SERVICES Nutrition Assessement Note Nutrition Assessment Reason for Assessment: Provider consult order Spoke with pt at bedside. Pt has a Hx of gastric by pass 2 years ago, J-tube. Pt reported to be on Nutren 2.0 @ 45 mL/hr over 18 hours (provides 1620 kcals, 68 gm protein, 561 mL free water), also TPN @ 80 mL/hr over 24 hours. Pt is unsure of formula of at home TPN. Pt reported to have stopped tubefeed 3 days ago d/t nausea, dry heaves and vomiting. Pt stated that she tried to drink clear liquids and Ensure at home and it is hit or miss if she will tolerate it. Per MD, wants to hold tube feed d/t intolerance. Pt is noted to be on D10 and TPN. 1 BG reading on 06/28 was 920 mg/dL, rest of BG have been stable between 77-117 mg/dl. Pt is requesting to be on a clear liquid diet. Reason for Hospital Admission: Abbey Garcia is a 33 y.o. female who is admitted for epigastric pain. Past Medical History: Diagnosis Date Acute renal failure superimposed on chronic kidney disease ([facility]) 06/29/2023 Anxiety Arthritis Asthma ([facility]) CPAP (continuous positive airway pressure) dependence Depression Disease of thyroid gland Dizziness GERD (gastroesophageal reflux disease) Hypothyroidism Irritable bowel syndrome with constipation Median arcuate ligament syndrome ([facility]) PCOS (polycystic ovarian syndrome) PONV (postoperative nausea and vomiting) PUD (peptic ulcer disease) Shortness of breath Past Surgical History: Procedure Laterality Date APPENDECTOMY SECTION, CLASSIC x3 CHOLECYSTECTOMY CT ABDOMEN PELVIS ANGIOGRAM W AND/OR WO IV CONTRAST 12/14/2022 CT ABDOMEN PELVIS ANGIOGRAM W AND/OR WO IV CONTRAST 12/14/2022 ERCP W/ SPHINCTEROTOMY AND BALLOON DILATION GASTRIC BYPASS 01/2022 Nutrition History: Food and Nutrient History: Pt is currently NPO. Pt is unsure the last time she ate PO. Pt stated that she tried clear liquids and an Ensure at home. pt stated it is hit or miss if she tolerates. Food Allergies/Intolerances: None GI Symptoms: Diarrhea and Nausea Oral Problems: None Anthropometrics: Ht: 167.6 cm (5' 6 ), Wt: 76.2 kg (168 lb), BMI: 27.13 IBW/kg (Dietitian Calculated): 59.09 kg Weight Change: Daily Weight 06/29/23 : 76.2 kg (168 lb) 06/22/23 : 76.2 kg (168 lb) 03/16/23 : 92.7 kg (204 lb 5.9 oz) 03/10/23 : 83.4 kg (183 lb 13.8 oz) 03/02/23 : 83.5 kg (184 lb 1.4 oz) 01/13/23 : 81.6 kg (180 lb) Weight History / % Weight Change: Pt reported UBW to be ~180#. Per chart, pt has lost 16# (8.7%) over 4 months Significant Weight Loss: Yes Interpretation of Weight Loss: >7.5% in 3 months Nutrition Focused Physical Exam Findings: Nutrition Significant Labs: Lab Results Component Value Date WBC 3.3 (L) 07/01/2023 HGB 12.0 07/01/2023 HCT 36.7 07/01/2023 PLT 228 07/01/2023 ALT 34 06/30/2023 AST 43 (H) 06/30/2023 NA 139 07/01/2023 K 3.9 07/01/2023 CL 106 07/01/2023 CREATININE 0.70 07/01/2023 BUN 12 07/01/2023 CO2 21 (L) 07/01/2023 HGBA1C 5.1 11/08/2019 Nutrition Specific Medications: busPIRone, 10 mg, oral, TID calcium gluconate, 2 g, intravenous, Once escitalopram, 20 mg, oral, Daily famotidine, 20 mg, oral, BID ferrous sulfate (325 mg ferrous sulfate), 1 tablet, oral, Daily with breakfast heparin, 5,000 Units, subcutaneous, q12h levothyroxine, 100 mcg, j-tube, Daily before breakfast liothyronine, 5 mcg, oral, Daily methocarbamol, 750 mg, oral, TID metoclopramide, 5 mg, oral, TID mirtazapine, 30 mg, oral, Nightly pantoprazole, 40 mg, oral, Daily polyethylene glycol, 17 g, oral, BID sodium bicarbonate, 50 mEq, intravenous, Once sodium polystyrene, 30 g, oral, Once topiramate, 100 mg, oral, BID Adult Clinimix Parenteral Nutrition Continuous, 83 mL/hr, Last Rate: 83 mL/hr (06/30/232140) dextrose 10 % in water (D10W), 75 mL/hr, Last Rate: 75 mL/hr (07/01/23 0444) Dietary Orders (From admission, onward) Start Ordered 06/30/231747 May Participate in Room Service Once Question: . Answer: Yes 06/30/23174706/30/23 0227 NPO Diet Except: Sips with meds; Effective now Diet effective now Question: Except: Answer: Sips with meds 06/30/23 0230 Nutrition Support Intake provides: 1420 kcals, 100 gm protein, 2000 mL total volume Estimated Needs: Estimated Energy Needs Total Energy Estimated Needs (kCal): (6260-7307) Total Estimated Energy Need per Day (kCal/kg): (25-30) Method for Estimating Needs: ABW Estimated Protein Needs Total Protein Estimated Needs (g): (59-71) Total Protein Estimated Needs (g/kg): (1-1.2) Method for Estimating Needs: ABW Estimated Fluid Needs Total Fluid Estimated Needs (mL): (2588-6342) Method for Estimating Needs: 1 mL/kcal Nutrition Diagnosis Nutrition Diagnosis: Nutrition Diagnosis Patient has Nutrition Diagnosis: Yes Diagnosis Status (1): New Nutrition Diagnosis 1: Altered GI function Related to (1): physiological causes As Evidenced by (1): need for TPN, cannot tolerate PO/ tube feed Nutrition Interventions/Recommendations Nutrition Interventions and Recommendations: Nutrition Prescription: Individualized Nutrition Prescription Provided for : 3902-1248 kcals, 59-71 gm protein via parentalnutrition Nutrition Interventions: Food and/or Nutrient Delivery Interventions Interventions: Parenteral nutrition/ IV fluids, Meals and snacks Meals and Snacks: General healthful diet Goal: advance as able Parenteral Nutrition/IV Fluids: Modify composition of parenteral nutrition Goal: Continue as ordered Formula: TPN standard - AA 5%, dextrose 15% Continuous Rate (mL/hr): 83.3 mL/hr Total Volume (mL/day): 2000 mL/day Total Parenteral Kcal (kcal/day): 1420 kcal/day Total Protein (g/day): 100 g/day Education Documentation No documentation found. Nutrition Monitoring and Evaluation Monitoring/Evaluation: Food/Nutrient Related History Monitoring Monitoring and Evaluation Plan: Enteral and parenteral nutrition intake Enteral and Parenteral Nutrition Intake: Parenteral nutrition formula/solution Criteria: will monitor for TPN tolerance Time Spent/Follow-up: Follow Up Time Spent (min): 30 minutes Last Date of Nutrition Visit: 07/01/23 Nutrition Follow-Up Needed?: 3-5 days Follow up Comment: 07/05/23 * Tomasa Ortiz MD - 06/30/2023 8:12 PM EDT Reason For Consult Failure to thrive, s/p gastric bypass and MALS History Of Present Illness Abbey Garcia is a 33 y.o. female presenting with abdominal pain, nausea. She has a history of a gastric bypass several years ago and has chronic abdominal pain and p.o. intolerance. She is on TPN and tube feeds for which she follows a surgeon at [facility]. They have been trying to advance her tube feeds or her oral intake but it has been unsuccessful. She also underwent median arcuate ligament release earlier this year by vascular. No evidence of recurrent issues that could be causing her pain. She came to the ER because her pain worsened over the last week with eating. Past Medical History She has a past medical history of Acute renal failure superimposed on chronic kidney disease ([facility]) (06/29/2023), Anxiety, Arthritis, Asthma ([facility]), CPAP (continuous positive airway pressure) dependence, Depression, Disease of thyroid gland, Dizziness, GERD (gastroesophageal reflux disease), H ypothyroidism, Irritable bowel syndrome, Median arcuate ligament syndrome ([facility]), PCOS (polycystic ovarian syndrome), PONV (postoperative nausea and vomiting), PUD (peptic ulcer disease), and Shortness of breath. She has no past medical history of Autoimmune disorder ([facility]), Bipolar disorder (Multi), BPH (benign prostatic hyperplasia), Cerebral aneurysm ([facility]), Cervical cancer (Multi), Cervical disc disease, Chronic kidney disease, CKD (chronic kidney disease), Cognitive decline, Crohn's disease (Multi), Dementia (Multi), Dysphagia, Endometrial cancer (Multi), Esophageal cancer (Multi), Esophageal disease, ESRD (end stage renal disease) (Multi), Fibromyalgia, primary, Fractures, Gastric cancer (Multi), Gender dysphoria, GI (gastrointestinal bleed), Hemodialysis status ([facility]), Hernia, internal, H istory of peritoneal dialysis, HIV disease (Multi), Immunocompromised (Multi), Liver disease, Lumbar disc disease, Mastocytosis, MS (multiple sclerosis) (Multi), Muscular dystrophy (Multi), Myasthenia gravis (Multi), Neuromuscular disorder (Multi), Ovarian cancer (Multi), Pancreatitis ([facility]), Peptic ulcer disease, Prematurity ([facility]), PTSD (post-traumatic stress disorder), Schizophrenia (Multi), Seizure disorder (Multi), Spinal stenosis, Substance addiction (Multi), Syncope, TIA (transientischemic attack), Ulcerative colitis (Multi), Urinary tract infection, Uterine cancer (Multi), or Vertigo. Surgical History She has a [...] Name Age of Onset Diabetes Mother Jessica Jeterino Hypertension Mother Jessica Artino Cancer Maternal Grandfather [...] Review of Systems Review of Systems Constitutional: Negative for chills, fever and unexpected weight change. HENT: Negative for sneezing, sore throat, trouble swallowing and voice change. Respiratory: Negative for chest tightness and shortness of breath. Cardiovascular: Negative for chest pain and palpitations. Gastrointestinal: Positive for abdominal distention, abdominal pain, nausea and vomiting. Negative for blood in stool and diarrhea. Endocrine: Negative for cold intolerance and heat intolerance. Genitourinary: Negative for decreased urine volume, dysuria and hematuria. Musculoskeletal: Negative for arthralgias and gait problem. Skin: Negative for rash and wound. Neurological: Negative for facial asymmetry, speech difficulty and headaches. Hematological: Negative for adenopathy. Does not bruise/bleed easily. Psychiatric/Behavioral: Negative for self-injury and suicidal ideas. Physical Exam Physical Exam Vitals and nursing note reviewed. Constitutional: Appearance: Normal appearance. HENT: Head: Normocephalic and atraumatic. Mouth/Throat: Mouth: Mucous membranes are moist. Pharynx: Oropharynx is clear. Eyes: Extraocular Movements: Extraocular movements intact. Pupils: Pupils are equal, round, and reactive to light. Cardiovascular: Rate and Rhythm: Normal rate and regular rhythm. Pulses: Normal pulses. Pulmonary: Effort: Pulmonary effort is normal. Breath sounds: Normal breath sounds. Abdominal: General: There is no distension. Palpations: Abdomen is soft. Tenderness: There is no abdominal tenderness. Comments: Jtube in place Musculoskeletal: Cervical back: Normal range of motion and neck supple. Skin: General: Skin is warm and dry. Neurological: General: No focal deficit present. Mental Status: She is alert and oriented to person, place, and time. Psychiatric: Mood and Affect: Mood normal. Behavior: Behavior normal. Last Recorded Vitals Blood pressure 119/71, pulse 59, temperature 36.5 C (97.7 F), temperature source Oral, resp. rate 17, height 1.676 m (5' 6 ), weight 76.2 kg (168 lb), SpO2 99%. Relevant Results Results for orders placed or performed during the hospital encounter of 06/29/23 (from the past 24 hour(s)) POCT GLUCOSE Result Value Ref Range POCT Glucose 117 (H) 74 - 99 mg/dL CBC Result Value Ref Range WBC 5.2 4.4 - 11.3 x10*3/uL nRBC 0.0 0.0 - 0.0 /100 WBCs RBC 3.58 (L) 4.00 - 5.20 x10*6/uL Hemoglobin 11.0 (L) 12.0 - 16.0 g/dL Hematocrit 32.7 (L) 36.0 - 46.0 % MCV 91 80 - 100 fL MCH 30.7 26.0 - 34.0 pg MCHC 33.6 32.0 - 36.0 g/dL RDW 13.7 11.5 - 14.5 % Platelets 246 150 - 450 x10*3/uL Basic metabolic panel Result Value Ref Range Glucose 106 (H) 65 - 99 mg/dL Sodium 138 133 - 145 mmol/L Potassium 3.9 3.4 - 5.1 mmol/L Chloride 105 97 - 107 mmol/L Bicarbonate 21 (L) 24 - 31 mmol/L Urea Nitrogen 16 8 - 25 mg/dL Creatinine 0.60 0.40 - 1.60 mg/dL eGFR >90 >60 mL/min/1.73m*2 Calcium 8.6 8.5 - 10.4 mg/dL Anion Gap 12 <=19 mmol/L Urinalysis with Reflex Culture and Microscopic Result Value Ref Range Color, Urine Light-Yellow Light-Yellow, Yellow, Dark-Yellow Appearance, Urine Clear Clear Specific [place], Urine 1.023 1.005 - 1.035 pH, Urine 6.0 5.0, 5.5, 6.0, 6.5, 7.0, 7.5, 8.0 Protein, Urine NEGATIVE NEGATIVE, 10 (TRACE), 20 (TRACE) mg/dL Glucose, Urine Normal Normal mg/dL Blood, Urine NEGATIVE NEGATIVE Ketones, Urine NEGATIVE NEGATIVE mg/dL Bilirubin, Urine NEGATIVE NEGATIVE Urobilinogen, Urine Normal Normal mg/dL Nitrite, Urine NEGATIVE NEGATIVE Leukocyte Esterase, Urine NEGATIVE NEGATIVE Extra Urine [place] Tube Result Value Ref Range Extra Tube Hold for add-ons. hCG, Urine, Qualitative Result Value Ref Range HCG, Urine NEGATIVE NEGATIVE CBC Result Value Ref Range WBC 5.0 4.4 - 11.3 x10*3/uL nRBC 0.0 0.0 - 0.0 /100 WBCs RBC 3.48 (L) 4.00 - 5.20 x10*6/uL Hemoglobin 10.8 (L) 12.0 - 16.0 g/dL Hematocrit 32.2 (L) 36.0 - 46.0 % MCV 93 80 - 100 fL MCH 31.0 26.0 - 34.0 pg MCHC 33.5 32.0 - 36.0 g/dL RDW 13.8 11.5 - 14.5 % Platelets 217 150 - 450 x10*3/uL Comprehensive Metabolic Panel Result Value Ref Range Glucose 136 (H) 65 - 99 mg/dL Sodium 137 133 - 145 mmol/L Potassium 3.9 3.4 - 5.1 mmol/L Chloride 104 97 - 107 mmol/L Bicarbonate 23 (L) 24 - 31 mmol/L Urea Nitrogen 14 8 - 25 mg/dL Creatinine 0.60 0.40 - 1.60 mg/dL eGFR >90 >60 mL/min/1.73m*2 Calcium 8.8 8.5 - 10.4 mg/dL Albumin 3.8 3.5 - 5.0 g/dL Alkaline Phosphatase 52 35 - 125 U/L Total Protein 6.3 5.9 - 7.9 g/dL AST 43 (H) 5 - 40 U/L Bilirubin, Total 0.3 0.1 - 1.2 mg/dL ALT 34 5 - 40 U/L Anion Gap 10 <=19 mmol/L Magnesium Result Value Ref Range Magnesium 1.90 1.60 - 3.10 mg/dL Phosphorus Result Value Ref Range Phosphorus 4.4 2.5 - 4.5 mg/dL POCT GLUCOSE Result Value Ref Range POCT Glucose 77 74 - 99 mg/dL CT angio abdomen pelvis w and or wo IV IV contrast Result Date: 06/30/2023 Interpreted By: Audie Gutierrez, STUDY: CT ANGIO ABDOMEN PELVIS W AND/OR WO IV IV CONTRAST; 06/30/2023 10:56 am INDICATION: Signs/Symptoms:Celiac disease; COMPARISON: 06/29/2023 ORDERING CLINICIAN: TIFFANIE MENDZE TECHNIQUE: Contiguous axial images of the abdomen/pelvis were performed with IV contrast. 75 ml of Omnipaque 350 was utilized. Coronal and sagittal reformatted images were also obtained. All CT examinations are performed with 1 or more of the following dose reduction techniques: Automated exposure control, adjustment of mA and/or kv according to patient's size, or use of iterative reconstruction techniques. FINDINGS: The liver, common bile duct, pancreas, spleen, and adrenal glands are stable in appearance. Multiple hypodense lesions consistent with hepatic cysts are again seen. Prior cholecystectomy is again noted. The kidneys enhance symmetrically. No urolithiasis is seen. No hydroureteronephrosis is seen. The visualized aorta is within normal limits. The celiac artery and branches appear patent. The SMA, renal arteries, and inferior mesenteric artery are patent. Normal common iliac and external iliac arteries. Patent internal iliac arteries. Patent vasculature. Additionally, portal venous phase imaging shows normal appearance of the venous structures. 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 There is a jejunostomy tube in place. Small bowel is non- dilated. The appendix is not definitely visualized. Colon is unremarkable with no evidence for acute inflammatory process. No free intraperitoneal air or fluid is seen. The bladder is minimally distended and contains a Long catheter The visualized osseous structures are intact. Limited images of the lower thorax are unremarkable. CT angiogram of the abdomen and pelvis is within normal limits. Patent vasculature as described. Stable appearance of gastric bypass surgery and jejunostomy tube. No abnormal bowel dilatation nor acute inflammatory process is seen. Signed by: Audie Gutierrez 06/30/2023 12:06 PM Dictation workstation: [id number] Vascular US mesenteric artery duplex complete Result Date: 06/30/2023 Preliminary Cardiology Report [facility] [id number] [place], [place] [id number] Preliminary Vascular Lab Report VASC US MESENTERIC ARTERY DUPLEX COMPLETE Patient Name: ABBEY FloresRenetta JOSE Reading Physician: [id number] Sherry Magaña MD Study Date: 06/30/2023 Ordering Provider: [id number] JAMIL GAVIN MRN/PID: [id number] Fellow: Technologist: Leia Degroot RVT Date of : 1990 Technologist 2: Gender: F Admission Status: Inpatient Location Performed: [facility] 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 PRELIMINARY CONCLUSIONS: Mesenteric: Celiac artery demonstrates no evidence of hemodynamically significant stenosis, SMA demonstrates no evidence of hemodynamically significant stenosis and the KEELY appears widely patent. The patient was NPO for this study. There is turbulent flow noted throughout the celiac artery; Dr. Magaña is aware of this finding. Optimization of the celiac artery is sub optimal due to extensive bowel gas. Unable to visualize the splenic and hepatic arteries due to bowel gas. The celiac artery with maneuvers measures 96 cm/s. Imaging & Doppler Findings: Aorta PSV 102 cm/s Celiac Origin PSV 92 cm/s Celiac Prox PSV 103 cm/s Celiac Mid PSV 1 54 cm/s Celiac Dist PSV 188 cm/s SMA Origin PSV 57 cm/s SMA Prox PSV 92 cm/s SMA Mid PSV 110 cm/s SMA Dist PSV 89 cm/s KEELY PSV 105 cm/s VASCULAR PRELIMINARY REPORT completed by Leia Degroot RVT on 06/30/2023 at 11:38:[address] abdomen pelvis wo IV contrast Result Date: 06/29/2023 Interpreted By: Fly West, STUDY: CT ABDOMEN PELVIS WO IV CONTRAST; 06/29/2023 11:09 pm INDICATION: Signs/Symptoms:Abdominal pain. COMPARISON: 03/16/2023 ACCESSION NUMBER(S): [id number] ORDERING CLINICIAN: DAVID VALADEZ TECHNIQUE: Axial CT images of the abdomen and pelvis with coronal and sagittal reconstructed images obtained without intravenous contrast.. FINDINGS: LOWER CHEST: Mild subsegmental atelectasis. LIVER: Numerous scattered hypodense foci, likely reflecting cysts, though incompletely characterized. BILE DUCTS: Normal caliber. GALLBLADDER: Cholecystectomy. PANCREAS: Within normal limits. SPLEEN: Within normal limits. ADRENALS: Within normal limits. KIDNEYS, URETERS, and BLADDER: No hydronephrosis or renal calculi. Ureters are non-dilated. Urinary bladder is decompressed, limiting evaluation. Long catheter in place. REPRODUCTIVE: Status post hysterectomy. No adnexal mass. VESSELS: The aorta and IVC appear normal. RETROPERITONEUM and LYMPH NODES: No lymphadenopathy. Surgical clip near the median arcuate ligament. 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 There is a jejunostomy tube in place. Small bowel is non-dilated. The appendixis not definitely visualized. There is however no pericecal stranding or fluid. Large bowel is normal. PERITONEUM: No ascites or free air, no fluid collection. BODY WALL: Midline abdominal wall scarring. MUSCULOSKELETAL: No acute osseous abnormality or suspicious osseous lesions. There is mild multilevel spinal degenerative change. 1. No acute abdominal or pelvic process. 2. Numerous hepatic hypodense lesions, incompletely characterize, though likely reflecting cysts. Appearance is similar to 03/16/2023. 3. Postsurgical changesas above. Signed by: Fly West 06/29/2023 11:53 PM Dictation workstation: [id number] Assessment/Plan Abdominal pain FTT 33-year-old female with complicated history after gastric bypass surgery. She has been working witha surgeon at [facility] to advance her tube feeds and oral intake and decrease the TPN, however this has been unsuccessful. She was evaluated by Dr. Magaña here and there is no evidence of celiac or SMA stenosis or compression. There is an intestinal rehabilitation program through [facility] and recommend follow-up with that program. Cont TPN for nutrition and PO/tube feeds as tolerated in the meantime Tomasa Ortiz MD * JAMA Solis - 06/30/2023 11:27 AM EDTAssociated Order(s): Inpatient consult to Acute Care Surgery Assessment/Plan Inpatient consult to Acute Care Surgery Consult performed by: JAMA Solis Consult ordered by: Baldomero Woodard MD Reason for consult: vomiting Assessment/Recommendations: Patient has been having post-operative complaints for the past 2 years associated with nausea and vomiting and not tolerating full strength tube feeding. Would recommend rehydration with IV fluids. As needed anti-emetics. She is supposed to be following up with an intestinal specialist outpatient. No acute surgical intervention recommended at this time. Subjective Abbey Garcia is a 33 y.o. female presenting with 2-year history of abdominal pain and nausea aftera gastric bypass surgery done at [facility] in which she has been hospitalized multiple times for this. She currently has a J-tube in place which she uses for feeds and venting and is also on TPN at home. She reports that she has had continued nausea and dry-heaves when she approaches her goal rate on tube feeds. She has three children at home and reports her intestinal problems have made it very difficult to care for them. Patient also reports she had a long catheter placed 2 weeks agodue to urinary retention resulting in frequent UTIs Surgical History She has a past surgical history that includes Gastric bypass; section, classic; ERCP w/ sphincterotomy and balloon dilation; Appendectomy; and Cholecystectomy. Social History She reports that she has never smoked. She has never used smokeless tobacco. She reports that she does not currently use alcohol. She reports that she does not use drugs. Abdominal Pain Associated symptoms include nausea. Pertinent negatives include no constipation, diarrhea, fever, myalgias or vomiting. Hypoglycemia Associated symptoms include abdominal pain and nausea. Pertinent negatives include no chest pain, chills, coughing, fatigue, fever, myalgias, rash, vomiting or weakness. Review of Systems Review of Systems Constitutional: Negative. Negative for chills, fatigue and fever. HENT: Negative. Negative for trouble swallowing. Respiratory: Negative. Negative for cough and shortness of breath. Cardiovascular: Negative for chest pain. Gastrointestinal: Positive for abdominal distention, abdominal pain and nausea. Negative for constipation, diarrhea and vomiting. Genitourinary: Negative for difficulty urinating. Retention. Long placed 2 weeks ago Musculoskeletal: Negative. Negative for myalgias. Skin: Negative. Negative for rash and wound. Neurological: Negative. Negative for weakness and light-headedness. Psychiatric/Behavioral: Negative. Objective Vital signs for last 24 hours: Temperature: [36.3 C (97.3 F)-36.9 C (98.4 F)] 36.9 C (98.4 F) Heart Rate: [61-76] 61 Respirations: [16-18] 17 BP: (104-137)/(71-87) 104/71 Intake/Output this shift: No intake/output data recorded. Physical Exam Physical Exam Nursing note reviewed. Constitutional: Appearance: Normal appearance. HENT: Head: Normocephalic and atraumatic. Cardiovascular: Rate and Rhythm: Normal rate. Pulmonary: Effort: Pulmonary effort is normal. Abdominal: General: Abdomen is flat. A surgical scar is present. Bowel sounds are normal. There is distension. Palpations: Abdomen is soft. Tenderness: There is generalized abdominal tenderness and tenderness in the epigastric area. Musculoskeletal: General: No swelling or tenderness. Skin: General: Skin is warm and dry. Neurological: Mental Status: She is alert and oriented to person, place, and time. Labs Lab Results Component Value Date WBC 5.0 06/30/2023 HGB 10.8 (L) 06/30/2023 HCT 32.2 (L) 06/30/2023 MCV 93 06/30/2023 PLT 217 06/30/2023 Lab Results Component Value Date GLUCOSE 136 (H) 06/30/2023 CALCIUM 8.8 06/30/2023 NA 137 06/30/2023 K 3.9 06/30/2023 CO2 23 (L) 06/30/2023 CL 104 06/30/2023 BUN 14 06/30/2023 CREATININE 0.60 06/30/2023 * Tiffanie Galvan Mary[place], ETHNOARCHAEOLOGY PROFESSOR-STORE CUSTODIAN - 06/30/2023 8:31 AM EDTAssociated Order(s): IP CONSULT TO VASCULAR SURGERY Reason for Consult Mid epigastric abdominal pain History Of Present Illness This is a 33-year-old female with past medical history of chronic abdominal pain, PCOS, PUD, depression, GERD, IBS, obesity (status post laparoscopic sleeve gastrectomy in August [address] Ku [id number] gastric bypass 01/29/[address] Kat) and median arcuate ligament syndrome who presented to the emergency department for further evaluation of mid epigastric abdominal pain and nausea. Jonh jose follows with GI and general surgery with the [facility] and is currently on TPN via J-tube which was recently placed. She states that when she ups her TPN she has increased abdominal pain. Also recently had Long catheter placed approximately 2 weeks ago. She had a CT abdomen pelvis without contrast, noting no acute findings however, our service had recommended it be ordered with contrast. On exam she is tearful. She was seen at bedside with Dr. Magaña in the emergency department this morning. She is n.p.o. and awaiting to be seen by general surgery. Also awaiting mesenteric duplex. Dr. Magaña also spoke with her general surgeon at [facility] where patient was advised for referral to [facility] intestinal rehabilitation. Past Medical History Past Medical History: Diagnosis Date Acute renal failure superimposed on chronic kidney disease ([facility]) 06/29/2023 Anxiety Arthritis Asthma ([facility]) CPAP (continuous positive airway pressure) dependence Depression Dizziness GERD (gastroesophageal reflux disease) Hypothyroidism Irritable bowel syndrome with constipation Median arcuate ligament syndrome ([facility]) PCOS (polycystic ovarian syndrome) PONV (postoperative nausea [...] of Health Financial Resource Strain: Low Risk (03/17/2023) Overall Financial Resource Strain (CARDIA) Difficulty of Paying Living Expenses: Not very hard Food Insecurity: No Food Insecurity (06/07/2023) Received from [facility] Hunger Vital Sign Worried About Running Out of Food in the Last Year: Never true Ran Out of Food in the Last Year: Never true Transportation Needs: No Transportation Needs (06/07/2023) Received from [facility] PRAPARE - Transportation Lack of Transportation (Medical): No Lack of Transportation (Non-Medical): No Physical Activity: Insufficiently Active (10/28/2022) Received from [facility] Exercise Vital Sign Days of Exercise per Week: 4 days Minutes of Exercise per Session: 30 min Stress: Stress Concern Present (10/28/2022) Received from [facility] [employer] - Occupational Stress Questionnaire Feeling of Stress : To some extent Social Connections: Socially Integrated (10/28/2022) Received from [facility] Social Connection and Isolation Panel [NHANES] Frequency of Communication with Friends and Family: More than three times a week Frequency of Social Gatherings with Friends and Family: Once a week Attends Congregation Services: 1 to 4 times per year Active Member of Clubs or Organizations: Yes Attends Club or Organization Meetings: More than 4 times per year Marital Status: Intimate Partner Violence: Not on file Housing Stability: Low Risk (06/07/2023) Received from [facility] Housing Stability Vital Sign Unable to Pay for Housing in the Last Year: No Number of Places Lived in the Last Year: 1 Unstable Housing in the Last Year: No Family History Family History Problem Relation Name Age of Onset Diabetes Mother Jessica Artino Hypertension Mother Jessica Artino Cancer Maternal Grandfather Cedrick Kraus COPD Maternal Grandfather Cedrick Efra Heart disease Maternal Grandfather Cedrick Efra Kidney disease Maternal Grandfather Cedrick Efra Hypertension Maternal Grandmother Grandpa Anesthesia problems Paternal Grandfather Elan Artino Arthritis Paternal Grandfather Elan Artino Hypertension Paternal Grandfather Elan Artino Anesthesia related problems Paternal Grandfather Elan Artino COPD Paternal Grandmother Grandmother Diabetes Paternal Grandmother Grandmother Asthma Brother Adán Artino Allergies Allergies Allergen Reactions Codeine Nausea/vomiting Nsaids (Non-Steroidal Anti-Inflammatory Drug) Nausea/vomiting Relevant Results Results for orders placed or performed during the hospital encounter of 06/29/23 (from the past 24 hour(s)) CBC and Auto Differential Result Value Ref Range WBC 5.0 4.4 - 11.3 x10*3/uL nRBC 0.0 0.0 - 0.0 /100 WBCs RBC 3.30 (L) 4.00 - 5.20 x10*6/uL Hemoglobin 10.3 (L) 12.0 - 16.0 g/dL Hematocrit 32.2 (L) 36.0 - 46.0 % MCV 98 80 - 100 fL MCH 31.2 26.0 - 34.0 pg MCHC 32.0 32.0 - 36.0 g/dL RDW 13.8 11.5 - 14.5 % Platelets 231 150 - 450 x10*3/uL Neutrophils % 71.9 40.0 - 80.0 % Immature Granulocytes %, Automated 0.2 0.0 - 0.9 % Lymphocytes % 23.1 13.0 - 44.0 % Monocytes % 4.0 2.0 - 10.0 % Eosinophils % 0.2 0.0 - 6.0 % Basophils % 0.6 0.0 - 2.0 % Neutrophils Absolute 3.57 1.20 - 7.70 x10*3/uL Immature Granulocytes Absolute, Automated 0.01 0.00 - 0.70 x10*3/uL Lymphocytes Absolute 1.15 (L) 1.20 - 4.80 x10*3/uL Monocytes Absolute 0.20 0.10 - 1.00 x10*3/uL Eosinophils Absolute 0.01 0.00 - 0.70 x10*3/uL Basophils Absolute 0.03 0.00 - 0.10 x10*3/uL Comprehensive metabolic panel Result Value Ref Range Glucose 920 (HH) 65 - 99 mg/dL Sodium 122 (L) 133 - 145 mmol/L Potassium 6.8 (HH) 3.4 - 5.1 mmol/L Chloride 90 (L) 97 - 107 mmol/L Bicarbonate 19 (L) 24 - 31 mmol/L Urea Nitrogen 15 8 - 25 mg/dL Creatinine 0.70 0.40 - 1.60 mg/dL eGFR >90 >60 mL/min/1.73m*2 Calcium 9.1 8.5 - 10.4 mg/dL Albumin 3.8 3.5 - 5.0 g/dL Alkaline Phosphatase 51 35 - 125 U/L Total Protein 6.3 5.9 - 7.9 g/dL AST 52 (H) 5 - 40 U/L Bilirubin, Total <0.2 0.1 - 1.2 mg/dL ALT 35 5 - 40 U/L Anion Gap 13 <=19 mmol/L POCT GLUCOSE Result Value Ref Range POCT Glucose 117 (H) 74 - 99 mg/dL CBC Result Value Ref Range WBC 5.2 4.4 - 11.3 x10*3/uL nRBC 0.0 0.0 - 0.0 /100 WBCs RBC 3.58 (L) 4.00 - 5.20 x10*6/uL Hemoglobin 11.0 (L) 12.0 - 16.0 g/dL Hematocrit 32.7 (L) 36.0 - 46.0 % MCV 91 80 - 100 fL MCH 30.7 26.0 - 34.0 pg MCHC 33.6 32.0 - 36.0 g/dL RDW 13.7 11.5 - 14.5 % Platelets 246 150 - 450 x10*3/uL Basic metabolic panel Result Value Ref Range Glucose 106 (H) 65 - 99 mg/dL Sodium 138 133 - 145 mmol/L Potassium 3.9 3.4 - 5.1 mmol/L Chloride 105 97 - 107 mmol/L Bicarbonate 21 (L) 24 - 31 mmol/L Urea Nitrogen 16 8 - 25 mg/dL Creatinine 0.60 0.40 - 1.60 mg/dL eGFR >90 >60 mL/min/1.73m*2 Calcium 8.6 8.5 - 10.4 mg/dL Anion Gap 12 <=19 mmol/L Urinalysis with Reflex Culture and Microscopic Result Value Ref Range Color, Urine Light-Yellow Light-Yellow, Yellow, Dark-Yellow Appearance, Urine Clear Clear Specific [place], Urine 1.023 1.005 - 1.035 pH, Urine 6.0 5.0, 5.5, 6.0, 6.5, 7.0, 7.5, 8.0 Protein, Urine NEGATIVE NEGATIVE, 10 (TRACE), 20 (TRACE) mg/dL Glucose, Urine Normal Normal mg/dL Blood, Urine NEGATIVE NEGATIVE Ketones, Urine NEGATIVE NEGATIVE mg/dL Bilirubin, Urine NEGATIVE NEGATIVE Urobilinogen, Urine Normal Normal mg/dL Nitrite, Urine NEGATIVE NEGATIVE Leukocyte Esterase, Urine NEGATIVE NEGATIVE hCG, Urine, Qualitative Result Value Ref Range HCG, Urine NEGATIVE NEGATIVE CBC Result Value Ref Range WBC 5.0 4.4 - 11.3 x10*3/uL nRBC 0.0 0.0 - 0.0 /100 WBCs RBC 3.48 (L) 4.00 - 5.20 x10*6/uL Hemoglobin 10.8 (L) 12.0 - 16.0 g/dL Hematocrit 32.2 (L) 36.0 - 46.0 % MCV 93 80 - 100 fL MCH 31.0 26.0 - 34.0 pg MCHC 33.5 32.0 - 36.0 g/dL RDW 13.8 11.5 - 14.5 % Platelets 217 150 - 450 x10*3/uL Comprehensive Metabolic Panel Result Value Ref Range Glucose 136 (H) 65 - 99 mg/dL Sodium 137 133 - 145 mmol/L Potassium 3.9 3.4 - 5.1 mmol/L Chloride 104 97 - 107 mmol/L Bicarbonate 23 (L) 24 - 31 mmol/L Urea Nitrogen 14 8 - 25 mg/dL Creatinine 0.60 0.40 - 1.60 mg/dL eGFR >90 >60 mL/min/1.73m*2 Calcium 8.8 8.5 - 10.4 mg/dL Albumin 3.8 3.5 - 5.0 g/dL Alkaline Phosphatase 52 35 - 125 U/L Total Protein 6.3 5.9 - 7.9 g/dL AST 43 (H) 5 - 40 U/L Bilirubin, Total 0.3 0.1 - 1.2 mg/dL ALT 34 5 - 40 U/L Anion Gap 10 <=19 mmol/L Magnesium Result Value Ref Range Magnesium 1.90 1.60 - 3.10 mg/dL Phosphorus Result Value Ref Range Phosphorus 4.4 2.5 - 4.5 mg/dL CT abdomen pelvis wo IV contrast Result Date: 06/29/2023 Interpreted By: Fly West, STUDY: CT ABDOMEN PELVIS WO IV CONTRAST; 06/29/2023 11:09 pm INDICATION: Signs/Symptoms:Abdominal pain. COMPARISON: 03/16/2023 ACCESSION NUMBER(S): [id number] ORDERING CLINICIAN: DAVID VALADEZ TECHNIQUE: Axial CT images of the abdomen and pelvis with coronal and sagittal reconstructed images obtained without intravenous contrast.. FINDINGS: LOWER CHEST: Mild subsegmental atelectasis. LIVER: Numerous scattered hypodense foci, likely reflecting cysts, though incompletely characterized. BILE DUCTS: Normal caliber. GALLBLADDER: Cholecystectomy. PANCREAS: Within normal limits. SPLEEN: Within normal limits. ADRENALS: Within normal limits. KIDNEYS, URETERS, and BLADDER: No hydronephrosis or renal calculi. Ureters are non-dilated. Urinary bladder is decompressed, limiting evaluation. Long catheter in place. REPRODUCTIVE: Status post hysterectomy. No adnexal mass. VESSELS: The aorta and IVC appear normal. RETROPERITONEUM and LYMPH NODES: No lymphadenopathy. Surgical clip near the median arcuate ligament. 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 There is a jejunostomy tube in place. Small bowel is non-dilated. The appendixis not definitely visualized. There is however no pericecal stranding or fluid. Large bowel is normal. PERITONEUM: No ascites or free air, no fluid collection. BODY WALL: Midline abdominal wall scarring. MUSCULOSKELETAL: No acute osseous abnormality or suspicious osseous lesions. There is mild multilevel spinal degenerative change. 1. No acute abdominal or pelvic process. 2. Numerous hepatic hypodense lesions, incompletely characterize, though likely reflecting cysts. Appearance is similar to 03/16/2023. 3. Postsurgical changesas above. Signed by: Fly West 06/29/2023 11:53 PM Dictation workstation: [id number] Physical exam Constitutional: Alert and oriented to person, place, date/time in no acute distress. HEENT: Atraumatic, normocephalic. PERRL. EOMI. Nares patent. Mucous membranes moist. Neck: Trachea midline. Respiratory: Clear to auscultation. Cardiac: Regular rate and rhythm. No murmurs. Cardiovascular: No edema of the extremities. Pulse exam: Radial and femoral pulses palpable bilateral. Abdominal: Soft, mid epigastric tenderness with palpation, nondistended, bowel sounds present. Musculoskeletal: Moves extremities freely. Dermatological: Clean and dry Neurological: Alert and oriented to person, place, date/time Psych: Calm, cooperative Assessment and Plan Abdominal pain Median arcuate ligament syndrome, status post ligament release on 03/05/2023 Obesity: status post laparoscopic sleeve gastrectomy in August [address] Ku and Tan-en-Y gastric bypass 01/29/[address] Kat Patient being admitted under hospitalist service N.p.o. in preparation for mesenteric duplex We will give further recommendations after results of duplex General surgery on consult Patient advised to follow-up with Dr. Kat's office after discharge Needs further workup for episodes of hypoglycemia documented in this [facility] Work Phone: 1(220) 362-338905-16-2024 Nurse Note* Mayda Balbuena LPN - 07/01/2023 2:30 AM EDT Pt alert and oriented, long intact, clear yellow urine , medicated twice for left epigastric pain with somewhat effect, TPN running at 83ml/hr, tolerating well, no sign of adverse reaction, pt remain NPO , sips with meds, pt in no acute distress, all safety measures in place, call light within reach. [facility]05-15-2024 Plan of care note* Care Plan - Mayda Balbuena LPN - 06/30/2023 10:12 PM EDT The patient's goals for the shift include feel better The clinical goals for the shift include pain control [facility] Work Phone: 1(141) 572-203205-15-2024 Consult note* Tomasa Ortiz MD - 06/30/2023 8:12 PM EDT Reason For Consult Failure to thrive, s/p gastric bypass and MALS History Of Present Illness Abbey Garcia is a 33 y.o. female presenting with abdominal pain, nausea. She has a history of a gastric bypass several years ago and has chronic abdominal pain and p.o. intolerance. She is on TPN and tube feeds for which she follows a surgeon at [facility]. They have been trying to advance her tube feeds or her oral intake but it has been unsuccessful. She also underwent median arcuate ligament release earlier this year by vascular. No evidence of recurrent issues that could be causing her pain. She came to the ER because her pain worsened over the last week with eating. Past Medical History She has a past medical history of Acute renal failure superimposed on chronic kidney disease ([facility]) (06/29/2023), Anxiety, Arthritis, Asthma ([facility]), CPAP (continuous positive airway pressure) dependence, Depression, Disease of thyroid gland, Dizziness, GERD (gastroesophageal reflux disease), H ypothyroidism, Irritable bowel syndrome, Median arcuate ligament syndrome ([facility]), PCOS (polycystic ovarian syndrome), PONV (postoperative nausea and vomiting), PUD (peptic ulcer disease), and Shortness of breath. She has no past medical history of Autoimmune disorder ([facility]), Bipolar disorder ([facility]), BPH (benign prostatic hyperplasia), Cerebral aneurysm ([facility]), Cervical cancer ([facility]), Cervical disc disease, Chronic kidney disease, CKD (chronic kidney disease), Cognitive decline, Crohn's disease ([facility]), Dementia ([facility]), Dysphagia, Endometrial cancer ([facility]), Esophageal cancer ([facility]), Esophageal disease, ESRD (end stage renal disease) ([facility]), Fibromyalgia, primary, Fractures, Gastric cancer ([facility]), Gender dysphoria, GI (gastrointestinal bleed), Hemodialysis status ([facility]), Hernia, internal, H istory of peritoneal dialysis, HIV disease ([facility]), Immunocompromised ([facility]), Liver disease, Lumbar disc disease, Mastocytosis, MS (multiple sclerosis) ([facility]), Muscular dystrophy ([facility]), Myasthenia gravis (Multi), Neuromuscular disorder ([facility]), Ovarian cancer ([facility]), Pancreatitis ([facility]), Peptic ulcer disease, Prematurity ([facility]), PTSD (post-traumatic stress disorder), Schizophrenia ([facility]), Seizure disorder ([facility]), Spinal stenosis, Substance addiction ([facility]), Syncope, TIA (transientischemic attack), Ulcerative colitis ([facility]), Urinary tract infection, Uterine cancer ([facility]), or Vertigo. Surgical History She has a [...] Diabetes Mother Jessica Artino Hypertension Mother Jessica Jeterino Cancer Maternal Grandfather Cedrick Kraus COPD Maternal [...] Review of Systems Review of Systems Constitutional: Negative for chills, fever and unexpected weight change. HENT: Negative for sneezing, sore throat, trouble swallowing and voice change. Respiratory: Negative for chest tightness and shortness of breath. Cardiovascular: Negative for chest pain and palpitations. Gastrointestinal: Positive for abdominal distention, abdominal pain, nausea and vomiting. Negative for blood in stool and diarrhea. Endocrine: Negative for cold intolerance and heat intolerance. Genitourinary: Negative for decreased urine volume, dysuria and hematuria. Musculoskeletal: Negative for arthralgias and gait problem. Skin: Negative for rash and wound. Neurological: Negative for facial asymmetry, speech difficulty and headaches. Hematological: Negative for adenopathy. Does not bruise/bleed easily. Psychiatric/Behavioral: Negative for self-injury and suicidal ideas. Physical Exam Physical Exam Vitals and nursing note reviewed. Constitutional: Appearance: Normal appearance. HENT: Head: Normocephalic and atraumatic. Mouth/Throat: Mouth: Mucous membranes are moist. Pharynx: Oropharynx is clear. Eyes: Extraocular Movements: Extraocular movements intact. Pupils: Pupils are equal, round, and reactive to light. Cardiovascular: Rate and Rhythm: Normal rate and regular rhythm. Pulses: Normal pulses. Pulmonary: Effort: Pulmonary effort is normal. Breath sounds: Normal breath sounds. Abdominal: General: There is no distension. Palpations: Abdomen is soft. Tenderness: There is no abdominal tenderness. Comments: Jtube in place Musculoskeletal: Cervical back: Normal range of motion and neck supple. Skin: General: Skin is warm and dry. Neurological: General: No focal deficit present. Mental Status: She is alert and oriented to person, place, and time. Psychiatric: Mood and Affect: Mood normal. Behavior: Behavior normal. Last Recorded Vitals Blood pressure 119/71, pulse 59, temperature 36.5 C (97.7 F), temperature source Oral, resp. rate 17, height 1.676 m (5' 6 ), weight 76.2 kg (168 lb), SpO2 99%. Relevant Results Results for orders placed or performed during the hospital encounter of 06/29/23 (from the past 24 hour(s)) POCT GLUCOSE Result Value Ref Range POCT Glucose 117 (H) 74 - 99 mg/dL CBC Result Value Ref Range WBC 5.2 4.4 - 11.3 x10*3/uL nRBC 0.0 0.0 - 0.0 /100 WBCs RBC 3.58 (L) 4.00 - 5.20 x10*6/uL Hemoglobin 11.0 (L) 12.0 - 16.0 g/dL Hematocrit 32.7 (L) 36.0 - 46.0 % MCV 91 80 - 100 fL MCH 30.7 26.0 - 34.0 pg MCHC 33.6 32.0 - 36.0 g/dL RDW 13.7 11.5 - 14.5 % Platelets 246 150 - 450 x10*3/uL Basic metabolic panel Result Value Ref Range Glucose 106 (H) 65 - 99 mg/dL Sodium 138 133 - 145 mmol/L Potassium 3.9 3.4 - 5.1 mmol/L Chloride 105 97 - 107 mmol/L Bicarbonate 21 (L) 24 - 31 mmol/L Urea Nitrogen 16 8 - 25 mg/dL Creatinine 0.60 0.40 - 1.60 mg/dL eGFR >90 >60 mL/min/1.73m*2 Calcium 8.6 8.5 - 10.4 mg/dL Anion Gap 12 <=19 mmol/L Urinalysis with Reflex Culture and Microscopic Result Value Ref Range Color, Urine Light-Yellow Light-Yellow, Yellow, Dark-Yellow Appearance, Urine Clear Clear Specific [place], Urine 1.023 1.005 - 1.035 pH, Urine 6.0 5.0, 5.5, 6.0, 6.5, 7.0, 7.5, 8.0 Protein, Urine NEGATIVE NEGATIVE, 10 (TRACE), 20 (TRACE) mg/dL Glucose, Urine Normal Normal mg/dL Blood, Urine NEGATIVE NEGATIVE Ketones, Urine NEGATIVE NEGATIVE mg/dL Bilirubin, Urine NEGATIVE NEGATIVE Urobilinogen, Urine Normal Normal mg/dL Nitrite, Urine NEGATIVE NEGATIVE Leukocyte Esterase, Urine NEGATIVE NEGATIVE Extra Urine [place] Tube Result Value Ref Range Extra Tube Hold for add-ons. hCG, Urine, Qualitative Result Value Ref Range HCG, Urine NEGATIVE NEGATIVE CBC Result Value Ref Range WBC 5.0 4.4 - 11.3 x10*3/uL nRBC 0.0 0.0 - 0.0 /100 WBCs RBC 3.48 (L) 4.00 - 5.20 x10*6/uL Hemoglobin 10.8 (L) 12.0 - 16.0 g/dL Hematocrit 32.2 (L) 36.0 - 46.0 % MCV 93 80 - 100 fL MCH 31.0 26.0 - 34.0 pg MCHC 33.5 32.0 - 36.0 g/dL RDW 13.8 11.5 - 14.5 % Platelets 217 150 - 450 x10*3/uL Comprehensive Metabolic Panel Result Value Ref Range Glucose 136 (H) 65 - 99 mg/dL Sodium 137 133 - 145 mmol/L Potassium 3.9 3.4 - 5.1 mmol/L Chloride 104 97 - 107 mmol/L Bicarbonate 23 (L) 24 - 31 mmol/L Urea Nitrogen 14 8 - 25 mg/dL Creatinine 0.60 0.40 - 1.60 mg/dL eGFR >90 >60 mL/min/1.73m*2 Calcium 8.8 8.5 - 10.4 mg/dL Albumin 3.8 3.5 - 5.0 g/dL Alkaline Phosphatase 52 35 - 125 U/L Total Protein 6.3 5.9 - 7.9 g/dL AST 43 (H) 5 - 40 U/L Bilirubin, Total 0.3 0.1 - 1.2 mg/dL ALT 34 5 - 40 U/L Anion Gap 10 <=19 mmol/L Magnesium Result Value Ref Range Magnesium 1.90 1.60 - 3.10 mg/dL Phosphorus Result Value Ref Range Phosphorus 4.4 2.5 - 4.5 mg/dL POCT GLUCOSE Result Value Ref Range POCT Glucose 77 74 - 99 mg/dL CT angio abdomen pelvis w and or wo IV IV contrast Result Date: 06/30/2023 Interpreted By: Audie Gutierrez, STUDY: CT ANGIO ABDOMEN PELVIS W AND/OR WO IV IV CONTRAST; 06/30/2023 10:56 am INDICATION: Signs/Symptoms:Celiac disease; COMPARISON: 06/29/2023 ORDERING CLINICIAN: TIFFANIE MENDEZ TECHNIQUE: Contiguous axial images of the abdomen/pelvis were performed with IV contrast. 75 ml of Omnipaque 350 was utilized. Coronal and sagittal reformatted images were also obtained. All CT examinations are performed with 1 or more of the following dose reduction techniques: Automated exposure control, adjustment of mA and/or kv according to patient's size, or use of iterative reconstruction techniques. FINDINGS: The liver, common bile duct, pancreas, spleen, and adrenal glands are stable in appearance. Multiple hypodense lesions consistent with hepatic cysts are again seen. Prior cholecystectomy is again noted. The kidneys enhance symmetrically. No urolithiasis is seen. No hydroureteronephrosis is seen. The visualized aorta is within normal limits. The celiac artery and branches appear patent. The SMA, renal arteries, and inferior mesenteric artery are patent. Normal common iliac and external iliac arteries. Patent internal iliac arteries. Patent vasculature. Additionally, portal venous phase imaging shows normal appearance of the venous structures. 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 There is a jejunostomy tube in place. Small bowel is non- dilated. The appendix is not definitely visualized. Colon is unremarkable with no evidence for acute inflammatory process. No free intraperitoneal air or fluid is seen. The bladder is minimally distended and contains a Long catheter The visualized osseous structures are intact. Limited images of the lower thorax are unremarkable. CT angiogram of the abdomen and pelvis is within normal limits. Patent vasculature as described. Stable appearance of gastric bypass surgery and jejunostomy tube. No abnormal bowel dilatation nor acute inflammatory process is seen. Signed by: Audie Gutierrez 06/30/2023 12:06 PM Dictation workstation: [id number] Vascular US mesenteric artery duplex complete Result Date: 06/30/2023 Preliminary Cardiology Report [facility] [id number] [place], [place] [id number] Preliminary Vascular Lab Report VASC US MESENTERIC ARTERY DUPLEX COMPLETE Patient Name: ABBEYHECTOR GARCIA Reading Physician: [id number] Sherry Magaña MD Study Date: 06/30/2023 Ordering Provider: [id number] JAMIL GAVIN MRN/PID: [id number] Fellow: Technologist: Leia Degroot RVT Date of : 1990 Technologist 2: Gender: F Admission Status: Inpatient Location Performed: [facility] 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 PRELIMINARY CONCLUSIONS: Mesenteric: Celiac artery demonstrates no evidence of hemodynamically significant stenosis, SMA demonstrates no evidence of hemodynamically significant stenosis and the KEELY appears widely patent. The patient was NPO for this study. There is turbulent flow noted throughout the celiac artery; Dr. Magaña is aware of this finding. Optimization of the celiac artery is sub optimal due to extensive bowel gas. Unable to visualize the splenic and hepatic arteries due to bowel gas. The celiac artery with maneuvers measures 96 cm/s. Imaging & Doppler Findings: Aorta PSV 102 cm/s Celiac Origin PSV 92 cm/s Celiac Prox PSV 103 cm/s Celiac Mid PSV 154 cm/s Celiac Dist PSV 188 cm/s SMA Origin PSV 57 cm/s SMA Prox PSV 92 cm/s SMA Mid PSV 110 cm/s SMA Dist PSV 89 cm/s KEELY PSV 105 cm/s VASCULAR PRELIMINARY REPORT completed by Leia Degroot RVT on 06/30/2023 at 11:38:[address] abdomen pelvis wo IV contrast Result Date: 06/29/2023 Interpreted By: Fly West, STUDY: CT ABDOMEN PELVIS WO IV CONTRAST; 06/29/2023 11:09 pm INDICATION: Signs/Symptoms:Abdominal pain. COMPARISON: 03/16/2023 ACCESSION NUMBER(S): [id number] ORDERING CLINICIAN: DAVID VALADEZ TECHNIQUE: Axial CT images of the abdomen and pelvis with coronal and sagittal reconstructed images obtained without intravenous contrast.. FINDINGS: LOWER CHEST: Mild subsegmental atelectasis. LIVER: Numerous scattered hypodense foci, likely reflecting cysts, though incompletely characterized. BILE DUCTS: Normal caliber. GALLBLADDER: Cholecystectomy. PANCREAS: Within normal limits. SPLEEN: Within normal limits. ADRENALS: Within normal limits. KIDNEYS, URETERS, and BLADDER: No hydronephrosis or renal calculi. Ureters are non-dilated. Urinary bladder is decompressed, limiting evaluation. Long catheter in place. REPRODUCTIVE: Status post hysterectomy. No adnexal mass. VESSELS: The aorta and IVC appear normal. RETROPERITONEUM and LYMPH NODES: No lymphadenopathy. Surgical clip near the median arcuate ligament. 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 There is a jejunostomy tube in place. Small bowel is non-dilated. The appendixis not definitely visualized. There is however no pericecal stranding or fluid. Large bowel is normal. PERITONEUM: No ascites or free air, no fluid collection. BODY WALL: Midline abdominal wall scarring. MUSCULOSKELETAL: No acute osseous abnormality or suspicious osseous lesions. There is mild multilevel spinal degenerative change. 1. No acute abdominal or pelvic process. 2. Numerous hepatic hypodense lesions, incompletely characterize, though likely reflecting cysts. Appearance is similar to 03/16/2023. 3. Postsurgical changesas above. Signed by: Fly West 06/29/2023 11:53 PM Dictation workstation: [id number] Assessment/Plan Abdominal pain FTT 33-year-old female with complicated history after gastric bypass surgery. She has been working witha surgeon at [facility] to advance her tube feeds and oral intake and decrease the TPN, however this has been unsuccessful. She was evaluated by Dr. Magaña here and there is no evidence of celiac or SMA stenosis or compression. There is an intestinal rehabilitation program through [facility] and recommend follow-up with that program. Cont TPN for nutrition and PO/tube feeds as tolerated in the meantime Tomasa Ortiz MD T [facility] Work Phone: [phone]) 614-424605-15-2024 Plan of care note* Care Plan - Shanique Bradford RN - 06/30/2023 4:47 PM EDT Pt has a POA and Living Will --not on file ADOD: 2-3 days Pt lives at home with her ; she lives in a 2 story home with a basement and 6-7 steps to enter. She does not use home 02, she has a cpap machine that she wears on and off. No cane or walker. She is being tx for both depression and anxiety; she denies S.I. She does not work, independent with ADL's. 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 She wears glasses, no hearing aids. Her PCP is in [facility]; and she uses [facility] on [address] in [facility]. She has a hx of gastric bypass, c/o abd pain. No anticipated discharge needs. DISCHARGE PLAN: HOME WITH T [facility] Work Phone: [phone]) [phone] Consult note* JAMA Solis - 06/30/2023 11:27 AM EDTAssociated Order(s): Inpatient consult to Acute Care Surgery Assessment/Plan Inpatient consult to Acute Care Surgery Consult performed by: JAMA Solis Consult ordered by: Baldomero Woodard MD Reason for consult: vomiting Assessment/Recommendations: Patient has been having post-operative complaints for the past 2 years associated with nausea and vomiting and not tolerating full strength tube feeding. Would recommend rehydration with IV fluids. As needed anti-emetics. She is supposed to be following up with an intestinal specialist outpatient. No acute surgical intervention recommended at this time. Subjective Abbey Garcia is a 33 y.o. female presenting with 2-year history of abdominal pain and nausea aftera gastric bypass surgery done at [facility] in which she has been hospitalized multiple times for this. She currently has a J-tube in place which she uses for feeds and venting and is also on TPN at home. She reports that she has had continued nausea and dry-heaves when she approaches her goal rate on tube feeds. She has three children at home and reports her intestinal problems have made it very difficult to care for them. Patient also reports she had a long catheter placed 2 weeks agodue to urinary retention resulting in frequent UTIs Surgical History She has a past surgical history that includes Gastric bypass; section, classic; ERCP w/ sphincterotomy and balloon dilation; Appendectomy; and Cholecystectomy. Social History She reports that she has never smoked. She has never used smokeless tobacco. She reports that she does not currently use alcohol. She reports that she does not use drugs. Abdominal Pain Associated symptoms include nausea. Pertinent negatives include no constipation, diarrhea, fever, myalgias or vomiting. Hypoglycemia Associated symptoms include abdominal pain and nausea. Pertinent negatives include no chest pain, chills, coughing, fatigue, fever, myalgias, rash, vomiting or weakness. Review of Systems Review of Systems Constitutional: Negative. Negative for chills, fatigue and fever. HENT: Negative. Negative for trouble swallowing. Respiratory: Negative. Negative for cough and shortness of breath. Cardiovascular: Negative for chest pain. Gastrointestinal: Positive for abdominal distention, abdominal pain and nausea. Negative for constipation, diarrhea and vomiting. Genitourinary: Negative for difficulty urinating. Retention. Long placed 2 weeks ago Musculoskeletal: Negative. Negative for myalgias. Skin: Negative. Negative for rash and wound. Neurological: Negative. Negative for weakness and light-headedness. Psychiatric/Behavioral: Negative. Objective Vital signs for last 24 hours: Temperature: [36.3 C (97.3 F)-36.9 C (98.4 F)] 36.9 C (98.4 F) Heart Rate: [61-76] 61 Respirations: [16-18] 17 BP: (104-137)/(71-87) 104/71 Intake/Output this shift: No intake/output data recorded. Physical Exam Physical Exam Nursing note reviewed. Constitutional: Appearance: Normal appearance. HENT: Head: Normocephalic and atraumatic. Cardiovascular: Rate and Rhythm: Normal rate. Pulmonary: Effort: Pulmonary effort is normal. Abdominal: General: Abdomen is flat. A surgical scar is present. Bowel sounds are normal. There is distension. Palpations: Abdomen is soft. Tenderness: There is generalized abdominal tenderness and tenderness in the epigastric area. Musculoskeletal: General: No swelling or tenderness. Skin: General: Skin is warm and dry. Neurological: Mental Status: She is alert and oriented to person, place, and time. Labs Lab Results Component Value Date WBC 5.0 06/30/2023 HGB 10.8 (L) 06/30/2023 HCT 32.2 (L) 06/30/2023 MCV 93 06/30/2023 PLT 217 06/30/2023 Lab Results Component Value Date GLUCOSE 136 (H) 06/30/2023 CALCIUM 8.8 06/30/2023 NA 137 06/30/2023 K 3.9 06/30/2023 CO2 23 (L) 06/30/2023 CL 104 06/30/2023 BUN 14 06/30/2023 CREATININE 0.60 06/30/2023 [facility] Work Phone: [phone] 620-989505-15-2024 Consult note* JAMA Judd - 06/30/2023 8:31 AM EDTAssociated Order(s): IP CONSULT TO VASCULAR SURGERY Reason for Consult Mid epigastric abdominal pain History Of Present Illness This is a 33-year-old female with past medical history of chronic abdominal pain, PCOS, PUD, depression, GERD, IBS, obesity (status post laparoscopic sleeve gastrectomy in August [address] Ku [id number] gastric bypass 01/29/[address] Kat) and median arcuate ligament syndrome who presented to the emergency department for further evaluation of mid epigastric abdominal pain and nausea. Jonh jose follows with GI and general surgery with the [facility] and is currently on TPN via J-tube which was recently placed. She states that when she ups her TPN she has increased abdominal pain. Also recently had Long catheter placed approximately 2 weeks ago. She had a CT abdomen pelvis without contrast, noting no acute findings however, our service had recommended it be ordered with contrast. On exam she is tearful. She was seen at bedside with Dr. Magaña in the emergency department this morning. She is n.p.o. and awaiting to be seen by general surgery. Also awaiting mesenteric duplex. Dr. Magaña also spoke with her general surgeon at [facility] where patient was advised for referral to [facility] intestinal rehabilitation. Past Medical History Past Medical History: Diagnosis Date Acute renal failure superimposed on chronic kidney disease ([facility]) 06/29/2023 Anxiety Arthritis Asthma ([facility]) CPAP (continuous positive airway pressure) dependence Depression Dizziness GERD (gastroesophageal reflux disease) Hypothyroidism Irritable bowel syndrome with constipation Median arcuate ligament syndrome ([facility]) PCOS (polycystic ovarian syndrome) PONV (postoperative nausea [...] of Health Financial Resource Strain: Low Risk (03/17/2023) Overall Financial Resource Strain (CARDIA) Difficulty of Paying Living Expenses: Not very hard Food Insecurity: No Food Insecurity (06/07/2023) Received from [facility] Hunger Vital Sign Worried About Running Out of Food in the Last Year: Never true Ran Out of Food in the Last Year: Never true Transportation Needs: No Transportation Needs (06/07/2023) Received from [facility] PRAPARE - Transportation Lack of Transportation (Medical): No Lack of Transportation (Non-Medical): No Physical Activity: Insufficiently Active (10/28/2022) Received from [facility] Exercise Vital Sign Days of Exercise per Week: 4 days Minutes of Exercise per Session: 30 min Stress: Stress Concern Present (10/28/2022) Received from [facility] - Occupational Stress Questionnaire Feeling of Stress : To some extent Social Connections: Socially Integrated (10/28/2022) Received from [facility] Social Connection and Isolation Panel [NHANES] Frequency of Communication with Friends and Family: More than three times a week Frequency of Social Gatherings with Friends and Family: Once a week Attends Congregation Services: 1 to 4 times per year Active Member of Clubs or Organizations: Yes Attends Club or Organization Meetings: More than 4 times per year Marital Status: Intimate Partner Violence: Not on file Housing Stability: Low Risk (06/07/2023) Received from [facility] Housing Stability Vital Sign Unable to Pay for Housing in the Last Year: No Number of Places Lived in the Last [...] Codeine Nausea/vomiting Nsaids (Non-Steroidal Anti-Inflammatory Drug) Nausea/vomiting Relevant Results Results for orders placed or performed during the hospital encounter of 06/29/23 (from the past 24 hour(s)) CBC and Auto Differential Result Value Ref Range WBC 5.0 4.4 - 11.3 x10*3/uL nRBC 0.0 0.0 - 0.0 /100 WBCs RBC 3.30 (L) 4.00 - 5.20 x10*6/uL Hemoglobin 10.3 (L) 12.0 - 16.0 g/dL Hematocrit 32.2 (L) 36.0 - 46.0 % MCV 98 80 - 100 fL MCH 31.2 26.0 - 34.0 pg MCHC 32.0 32.0 - 36.0 g/dL RDW 13.8 11.5 - 14.5 % Platelets 231 150 - 450 x10*3/uL Neutrophils % 71.9 40.0 - 80.0 % Immature Granulocytes %, Automated 0.2 0.0 - 0.9 % Lymphocytes % 23.1 13.0 - 44.0 % Monocytes % 4.0 2.0 - 10.0 % Eosinophils % 0.2 0.0 - 6.0 % Basophils % 0.6 0.0 - 2.0 % Neutrophils Absolute 3.57 1.20 - 7.70 x10*3/uL Immature Granulocytes Absolute, Automated 0.01 0.00 - 0.70 x10*3/uL Lymphocytes Absolute 1.15 (L) 1.20 - 4.80 x10*3/uL Monocytes Absolute 0.20 0.10 - 1.00 x10*3/uL Eosinophils Absolute 0.01 0.00 - 0.70 x10*3/uL Basophils Absolute 0.03 0.00 - 0.10 x10*3/uL Comprehensive metabolic panel Result Value Ref Range Glucose 920 (HH) 65 - 99 mg/dL Sodium 122 (L) 133 - 145 mmol/L Potassium 6.8 (HH) 3.4 - 5.1 mmol/L Chloride 90 (L) 97 - 107 mmol/L Bicarbonate 19 (L) 24 - 31 mmol/L Urea Nitrogen 15 8 - 25 mg/dL Creatinine 0.70 0.40 - 1.60 mg/dL eGFR >90 >60 mL/min/1.73m*2 Calcium 9.1 8.5 - 10.4 mg/dL Albumin 3.8 3.5 - 5.0 g/dL Alkaline Phosphatase 51 35 - 125 U/L Total Protein 6.3 5.9 - 7.9 g/dL AST 52 (H) 5 - 40 U/L Bilirubin, Total <0.2 0.1 - 1.2 mg/dL ALT 35 5 - 40 U/L Anion Gap 13 <=19 mmol/L POCT GLUCOSE Result Value Ref Range POCT Glucose 117 (H) 74 - 99 mg/dL CBC Result Value Ref Range WBC 5.2 4.4 - 11.3 x10*3/uL nRBC 0.0 0.0 - 0.0 /100 WBCs RBC 3.58 (L) 4.00 - 5.20 x10*6/uL Hemoglobin 11.0 (L) 12.0 - 16.0 g/dL Hematocrit 32.7 (L) 36.0 - 46.0 % MCV 91 80 - 100 fL MCH 30.7 26.0 - 34.0 pg MCHC 33.6 32.0 - 36.0 g/dL RDW 13.7 11.5 - 14.5 % Platelets 246 150 - 450 x10*3/uL Basic metabolic panel Result Value Ref Range Glucose 106 (H) 65 - 99 mg/dL Sodium 138 133 - 145 mmol/L Potassium 3.9 3.4 - 5.1 mmol/L Chloride 105 97 - 107 mmol/L Bicarbonate 21 (L) 24 - 31 mmol/L Urea Nitrogen 16 8 - 25 mg/dL Creatinine 0.60 0.40 - 1.60 mg/dL eGFR >90 >60 mL/min/1.73m*2 Calcium 8.6 8.5 - 10.4 mg/dL Anion Gap 12 <=19 mmol/L Urinalysis with Reflex Culture and Microscopic Result Value Ref Range Color, Urine Light-Yellow Light-Yellow, Yellow, Dark-Yellow Appearance, Urine Clear Clear Specific [place], Urine 1.023 1.005 - 1.035 pH, Urine 6.0 5.0, 5.5, 6.0, 6.5, 7.0, 7.5, 8.0 Protein, Urine NEGATIVE NEGATIVE, 10 (TRACE), 20 (TRACE) mg/dL Glucose, Urine Normal Normal mg/dL Blood, Urine NEGATIVE NEGATIVE Ketones, Urine NEGATIVE NEGATIVE mg/dL Bilirubin, Urine NEGATIVE NEGATIVE Urobilinogen, Urine Normal Normal mg/dL Nitrite, Urine NEGATIVE NEGATIVE Leukocyte Esterase, Urine NEGATIVE NEGATIVE hCG, Urine, Qualitative Result Value Ref Range HCG, Urine NEGATIVE NEGATIVE CBC Result Value Ref Range WBC 5.0 4.4 - 11.3 x10*3/uL nRBC 0.0 0.0 - 0.0 /100 WBCs RBC 3.48 (L) 4.00 - 5.20 x10*6/uL Hemoglobin 10.8 (L) 12.0 - 16.0 g/dL Hematocrit 32.2 (L) 36.0 - 46.0 % MCV 93 80 - 100 fL MCH 31.0 26.0 - 34.0 pg MCHC 33.5 32.0 - 36.0 g/dL RDW 13.8 11.5 - 14.5 % Platelets 217 150 - 450 x10*3/uL Comprehensive Metabolic Panel Result Value Ref Range Glucose 136 (H) 65 - 99 mg/dL Sodium 137 133 - 145 mmol/L Potassium 3.9 3.4 - 5.1 mmol/L Chloride 104 97 - 107 mmol/L Bicarbonate 23 (L) 24 - 31 mmol/L Urea Nitrogen 14 8 - 25 mg/dL Creatinine 0.60 0.40 - 1.60 mg/dL eGFR >90 >60 mL/min/1.73m*2 Calcium 8.8 8.5 - 10.4 mg/dL Albumin 3.8 3.5 - 5.0 g/dL Alkaline Phosphatase 52 35 - 125 U/L Total Protein 6.3 5.9 - 7.9 g/dL AST 43 (H) 5 - 40 U/L Bilirubin, Total 0.3 0.1 - 1.2 mg/dL ALT 34 5 - 40 U/L Anion Gap 10 <=19 mmol/L Magnesium Result Value Ref Range Magnesium 1.90 1.60 - 3.10 mg/dL Phosphorus Result Value Ref Range Phosphorus 4.4 2.5 - 4.5 mg/dL CT abdomen pelvis wo IV contrast Result Date: 06/29/2023 Interpreted By: Fly West, STUDY: CT ABDOMEN PELVIS WO IV CONTRAST; 06/29/2023 11:09 pm INDICATION: Signs/Symptoms:Abdominal pain. COMPARISON: 03/16/2023 ACCESSION NUMBER(S): [id number] ORDERING CLINICIAN: DAVID VALADEZ TECHNIQUE: Axial CT images of the abdomen and pelvis with coronal and sagittal reconstructed images obtained without intravenous contrast.. FINDINGS: LOWER CHEST: Mild subsegmental atelectasis. LIVER: Numerous scattered hypodense foci, likely reflecting cysts, though incompletely characterized. BILE DUCTS: Normal caliber. GALLBLADDER: Cholecystectomy. PANCREAS: Within normal limits. SPLEEN: Within normal limits. ADRENALS: Within normal limits. KIDNEYS, URETERS, and BLADDER: No hydronephrosis or renal calculi. Ureters are non-dilated. Urinary bladder is decompressed, limiting evaluation. Long catheter in place. REPRODUCTIVE: Status post hysterectomy. No adnexal mass. VESSELS: The aorta and IVC appear normal. RETROPERITONEUM and LYMPH NODES: No lymphadenopathy. Surgical clip near the median arcuate ligament. 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 There is a jejunostomy tube in place. Small bowel is non-dilated. The appendixis not definitely visualized. There is however no pericecal stranding or fluid. Large bowel is normal. PERITONEUM: No ascites or free air, no fluid collection. BODY WALL: Midline abdominal wall scarring. MUSCULOSKELETAL: No acute osseous abnormality or suspicious osseous lesions. There is mild multilevel spinal degenerative change. 1. No acute abdominal or pelvic process. 2. Numerous hepatic hypodense lesions, incompletely characterize, though likely reflecting cysts. Appearance is similar to 03/16/2023. 3. Postsurgical changesas above. Signed by: Fly West 06/29/2023 11:53 PM Dictation workstation: [id number] Physical exam Constitutional: Alert and oriented to person, place, date/time in no acute distress. HEENT: Atraumatic, normocephalic. PERRL. EOMI. Nares patent. Mucous membranes moist. Neck: Trachea midline. Respiratory: Clear to auscultation. Cardiac: Regular rate and rhythm. No murmurs. Cardiovascular: No edema of the extremities. Pulse exam: Radial and femoral pulses palpable bilateral. Abdominal: Soft, mid epigastric tenderness with palpation, nondistended, bowel sounds present. Musculoskeletal: Moves extremities freely. Dermatological: Clean and dry Neurological: Alert and oriented to person, place, date/time Psych: Calm, cooperative Assessment and Plan Abdominal pain Median arcuate ligament syndrome, status post ligament release on 03/05/2023 Obesity: status post laparoscopic sleeve gastrectomy in August [address] Ku and Tan-en-Y gastric bypass 01/29/[address] Kat Patient being admitted under hospitalist service N.p.o. in preparation for mesenteric duplex We will give further recommendations after results of duplex General surgery on consult Patient advised to follow-up with Dr. Kat's office after discharge Needs further workup for episodes of hypoglycemia [facility] Work Phone: [phone]) 891-381705-15-2024 Emergency department Note* Carla Alejo LPN - 06/30/2023 6:43 AM EDT Patient in gown at this time no c/o pain or discomfort no needs made known at this time Patient sleeping, chest rises and falls at equal intervals and patient takes breaths. Responds verbaly to calling of name and acknowledges this nurses presence in room Carla Alejo LPN 06/30/23 0645 [facility]05-15-2024 Emergency department Note* Carla Alejo LPN - 06/30/2023 6:43 AM EDT Patient in gown at this time no c/o pain or discomfort no needs made known at this time Patient sleeping, chest rises and falls at equal intervals and patient takes breaths. Responds verbaly to calling of name and acknowledges this nurses presence in room Carla Alejo LPN 06/30/23 0645 * Carla Alejo LPN - 06/30/2023 5:48 AM EDT Patient vitals taken, labs drawn and sent and patient medicated for pain , vitals taken and charted, no c/o discomfort or other needs at this time Carla Alejo LPN 06/30/23 0549 * Carla Alejo LPN - 06/29/2023 8:57 PM EDT Assumed care of patient , labs drawn originally while tpn was attached and running , blood glucose redone via fingerstick with result of 117 and cbc/bmp reordered STAT , drawn and sent to lab Carla Alejo LPN 06/29/232057 * David Valadez DO - 06/29/2023 5:37 PM EDT HPI Chief Complaint Patient presents with Nausea Dry heaving Abdominal Pain Hypoglycemia HPI 33 year old female with past medical history of PCOS, GERD, Chronic Abdominal pain and past surgical history of laparoscopic cholecystectomy in 2008, sleeve gastrectomy in 2020, conversion to gastricbypass in 2021, lap assisted ERCP with sphincterotomy in 2022, and MALS surgery in February 2023 presents with complaint of continued abdominal pain and nausea and vomiting. Patient states that short time into her TPN she gets nauseous if she tries to eat anything she gets very nauseous and vomitingas well. She has contacted her surgeon Dr. Magaña who thinks it may be a mesenteric artery issue. Hermedications at home are not helping with her symptoms. Her blood sugars have been low. No fevers orchills. No chest pain. No other complaints. [place] Coma Scale Score: 15 Patient History Past Medical History: Diagnosis Date Acute renal failure superimposed on chronic kidney disease ([facility]) 06/29/2023 Anxiety Arthritis Asthma ([facility]) CPAP (continuous positive airway pressure) dependence Depression Dizziness GERD (gastroesophageal reflux disease) Hypothyroidism Irritable bowel syndrome with constipation Median arcuate ligament syndrome ([facility]) PCOS (polycystic ovarian syndrome) PONV (postoperative nausea [...] Cedrick Kraus Kidney disease Maternal Grandfather Cedrick Efra Hypertension [...] use: Never Physical Exam ED Triage Vitals [06/29/23 1816] Temperature Heart Rate Respirations BP 36.3 C (97.3 F) 70 16 136/86 Pulse Ox Temp src Heart Rate Source Patient Position 99 % -- -- -- BP Location FiO2 (%) -- -- Physical Exam General: Awake, alert, no acute distress. Head: Normocephalic, Atraumatic Neck: Supple, trachea midline, no stridor Skin: Warm and dry, no rashes Lungs: Clear to auscultation bilaterally no acute respiratory distress, speaking in full sentences without difficulty CV: Regular Rate Rhythm with no obvious murmurs gallops rubs noted, no jugular venous distention, no pedal edema Abdomen: Soft, diffusely tender, gastric tube in place, nondistended, positive bowel sounds, no peritoneal signs Neuro: No gross focal neurologic deficits, NIH is 0 Musculoskeletal: Full range of motion in all 4 extremities. PICC line right arm Psychiatric: Alert oriented x 3, Good insight into condition. ED Course & MDM ED Course as of 06/30/23243June 29, 20232044 My EKG interpretation: Sinus rhythm 59 bpm normal axis HI interval 140 QTc 453 no ectopy or acute ischemic changes noted [KW] ED Course User Index [KW] David Valadez DO Diagnoses as of 06/30/23243 Epigastric pain Nausea and vomiting, unspecified vomiting type Medical Decision Making Patient treated IV fluids, morphine, Compazine. She was less nauseous and abdominal pain was controlled. This seems to be an ongoing complex issue for this patient. She is not tolerating her TPN, tube feeds, or oral intake at home without vomiting. Given her complex history and above issues I felt that she would benefit from admission for further evaluation. I did speak with Dr. Magaña who felt sheneeded more involvement with GI or surgery and not somewhat vascular surgery. He will follow her. Discussed plan for admission with the patient she was in agreement. Contact the hospitalist for admission. Procedure Procedures David Valadez DO 06/30/23243 * Carla Alejo LPN - 06/29/2023 5:37 PM EDT medications held at this time per ED physician verbal order Carla Alejo LPN 06/29/23 5271 [facility] Work Phone: 1(158) 912-709605-15-2024 Emergency department Note* Carla Aleoj LPN - 06/30/2023 5:48 AM EDT Patient vitals taken, labs drawn and sent and patient medicated for pain , vitals taken and charted, no c/o discomfort or other needs at this time Carla Alejo LPN 06/30/23 0549 [facility] Work Phone: 1(760) 731-477405-15-2024 History and physical note* Baldomero Woodard MD - 06/30/2023 2:40 AM EDT History Of Present Illness Abbey Garcia is a 33 y.o. female presenting with 2-year history of abdominal pain and nausea after a gastric bypass surgery done at [facility] she has been hospitalized multiple times for this. She has a combination gastric tube jejunostomy tube which is supposed to be used for tube feeds she is on TPN. She has a surgeon at [facility] but she also sees Dr. Magaña vascular surgery because she has had some celiac artery disease she is supposed to be getting tube feeds 45 cc an hour plus TPN 80 cc an hour. She cannot tolerate the tube feeds as ordered. She does not for about 4 hours a day and then stops because she feels distended nauseous and has abdominal discomfort. despite taking her TPN as prescribed she is frequently hypoglycemic? She presents with all of this and I am asked to admit her. Past medical history she had a gastric bypass surgery done about 2 years ago and has had chronic issues tolerating food tube feeds chronic pain nausea vomiting. Surgical History She has a past surgical [...] Nsaids (non-steroidal anti-inflammatory drug) Review of Systems See HPI for pertinent positives and negatives otherwise 10 point review of systems negative Physical Exam alert oriented undistressed Head atraumatic normocephalic Pupils equal round reactive to light extraocular motion intact Mouth normal-appearing tongue and oropharynx Neck supple without thyromegaly Lymph nodes no cervical or axillary lymphadenopathy Abdomen I see her hedged tube her abdomen is soft nontender nondistended Extremities no significant edema Neuro cranial nerves intact with normal tone and strength arms and legs Extremities she has a PICC line in her right arm Skin no rashes or ulcerations Last Recorded Vitals BP 136/86 Pulse 70 Temp 36.3 C (97.3 F) Resp 16 Wt 76.2 kg (168 lb) SpO2 99% Relevant Results her labs are unremarkable. The computer shows some very alarming labs but that was a bad draw from her PICC line. A redraw showed much more normal-looking labs. CT of the abdomen Assessment/Plan Acute on chronic nausea vomiting abdominal discomfort intolerance of food or tube feedings. We will hold tube feeds for now. I have asked her to continue using her TPN and bring in some bags from home and run it at 80 cc an hour. I looked at the bag it does not seem to have insulin in it. We will check blood sugars every 4 hours while she is here we will try to get her nausea under control with Reglan [id number] will consult general surgery to help with this complicated acute on chronic situation will order subcu heparin IV Protonix will make sure her gastric tube in her J- tube gets flushed. 3 times a day will order most of her home meds the way she takes them at home either by mouth or for through the J-tube. Baldomero Woodard MD [facility] Work Phone: 1(797) 275-839905-15-2024 History and physical note* Baldomero Woodard MD - 06/30/2023 2:40 AM EDT History Of Present Illness Abbey Garcia is a 33 y.o. female presenting with 2-year history of abdominal pain and nausea after a gastric bypass surgery done at [facility] she has been hospitalized multiple times for this. She has a combination gastric tube jejunostomy tube which is supposed to be used for tube feeds she is on TPN. She has a surgeon at [facility] but she also sees Dr. Magaña vascular surgery because she has had some celiac artery disease she is supposed to be getting tube feeds 45 cc an hour plus TPN 80 cc an hour. She cannot tolerate the tube feeds as ordered. She does not for about 4 hours a day and then stops because she feels distended nauseous and has abdominal discomfort. despite taking her TPN as prescribed she is frequently hypoglycemic? She presents with all of this and I am asked to admit her. Past medical history she had a gastric bypass surgery done about 2 years ago and has had chronic issues tolerating food tube feeds chronic pain nausea vomiting. Surgical History She has a past surgical [...] Mother Jessica Artino Cancer Maternal Grandfather Cedrick Efra COPD Maternal Grandfather Cedrick Efra Heart disease Maternal Grandfather Cedrick Efra Kidney disease Maternal Grandfather Cedrick Efra Hypertension Maternal Grandmother Grandpa Anesthesia problems Paternal Grandfather Elan Artino Arthritis Paternal Grandfather Elan Artino Hypertension Paternal Grandfather Elan Artino Anesthesia related problems Paternal Grandfather Elan Artino COPD Paternal Grandmother Grandmother Diabetes Paternal Grandmother Grandmother Asthma Brother Adán Phipps Allergies Codeine and Nsaids (non-steroidal anti-inflammatory drug) Review of Systems See HPI for pertinent positives and negatives otherwise 10 point review of systems negative Physical Exam alert oriented undistressed Head atraumatic normocephalic Pupils equal round reactive to light extraocular motion intact Mouth normal-appearing tongue and oropharynx Neck supple without thyromegaly Lymph nodes no cervical or axillary lymphadenopathy Abdomen I see her hedged tube her abdomen is soft nontender nondistended Extremities no significant edema Neuro cranial nerves intact with normal tone and strength arms and legs Extremities she has a PICC line in her right arm Skin no rashes or ulcerations Last Recorded Vitals BP 136/86 Pulse 70 Temp 36.3 C (97.3 F) Resp 16 Wt 76.2 kg (168 lb) SpO2 99% Relevant Results her labs are unremarkable. The computer shows some very alarming labs but that was a bad draw from her PICC line. A redraw showed much more normal-looking labs. CT of the abdomen Assessment/Plan Acute on chronic nausea vomiting abdominal discomfort intolerance of food or tube feedings. We will hold tube feeds for now. I have asked her to continue using her TPN and bring in some bags from home and run it at 80 cc an hour. I looked at the bag it does not seem to have insulin in it. We will check blood sugars every 4 hours while she is here we will try to get her nausea under control with Reglan burec-ywu-faaxk will consult general surgery to help with this complicated acute on chronic situation will order subcu heparin IV Protonix will make sure her gastric tube in her J- tube gets flushed. 3 times a day will order most of her home meds the way she takes them at home either by mouth or for through the J-tube. Baldomero Woodard MD documented in this [facility] Work Phone: 1(930) 590-127905-14-2024 Emergency department Note* Carla Rodriguezreginald, DIANE - 06/29/2023 8:57 PM EDT Assumed care of patient , labs drawn originally while tpn was attached and running , blood glucose redone via fingerstick with result of 117 and cbc/bmp reordered STAT , drawn and sent to lab Carla Alejo LPN 06/29/232057 [facility] Work Phone: 1(505) 875-449805-14-2024 Emergency department Note* Carla Alejo LPN - 06/29/2023 5:37 PM EDT medications held at this time per ED physician verbal order Carla Alejo LPN 06/29/232 [facility] Work Phone: 1(876) 478-768605-14-2024 Physician Emergency department Note* David Valadez, - 06/29/2023 5:37 PM EDT HPI Chief Complaint Patient presents with Nausea Dry heaving Abdominal Pain Hypoglycemia HPI 33 year old female with past medical history of PCOS, GERD, Chronic Abdominal pain and past surgical history of laparoscopic cholecystectomy in 2008, sleeve gastrectomy in 2020, conversion to gastricbypass in 2021, lap assisted ERCP with sphincterotomy in 2022, and MALS surgery in February 2023 presents with complaint of continued abdominal pain and nausea and vomiting. Patient states that short time into her TPN she gets nauseous if she tries to eat anything she gets very nauseous and vomitingas well. She has contacted her surgeon Dr. Magaña who thinks it may be a mesenteric artery issue. Hermedications at home are not helping with her symptoms. Her blood sugars have been low. No fevers orchills. No chest pain. No other complaints. [place] Coma Scale Score: 15 Patient History Past Medical History: Diagnosis Date Acute renal failure superimposed on chronic kidney disease (CMS-HCC) 06/29/2023 Anxiety Arthritis Asthma ([facility]-HCC) CPAP (continuous positive airway pressure) dependence Depression Dizziness GERD (gastroesophageal reflux disease) Hypothyroidism Irritable bowel syndrome with constipation Median arcuate ligament syndrome (CMS-HCC) PCOS (polycystic ovarian syndrome) PONV (postoperative nausea [...] use: Never Physical Exam ED Triage Vitals [06/29/23 1816] Temperature Heart Rate Respirations BP 36.3 C (97.3 F) 70 16 136/86 Pulse Ox Temp src Heart Rate Source Patient Position 99 % -- -- -- BP Location FiO2 (%) -- -- Physical Exam General: Awake, alert, no acute distress. Head: Normocephalic, Atraumatic Neck: Supple, trachea midline, no stridor Skin: Warm and dry, no rashes Lungs: Clear to auscultation bilaterally no acute respiratory distress, speaking in full sentences without difficulty CV: Regular Rate Rhythm with no obvious murmurs gallops rubs noted, no jugular venous distention, no pedal edema Abdomen: Soft, diffusely tender, gastric tube in place, nondistended, positive bowel sounds, no peritoneal signs Neuro: No gross focal neurologic deficits, NIH is 0 Musculoskeletal: Full range of motion in all 4 extremities. PICC line right arm Psychiatric: Alert oriented x 3, Good insight into condition. ED Course & MDM ED Course as of 06/30/234 e June 29, 20232044 My EKG interpretation: Sinus rhythm 59 bpm normal axis HI interval 140 QTc 453 no ectopy or acute ischemic changes noted [KW] ED Course User Index [KW] David Valadez DO Diagnoses as of 06/30/23243 Epigastric pain Nausea and vomiting, unspecified vomiting type Medical Decision Making Patient treated IV fluids, morphine, Compazine. She was less nauseous and abdominal pain was controlled. This seems to be an ongoing complex issue for this patient. She is not tolerating her TPN, tube feeds, or oral intake at home without vomiting. Given her complex history and above issues I felt that she would benefit from admission for further evaluation. I did speak with Dr. Magaña who felt sheneeded more involvement with GI or surgery and not somewhat vascular surgery. He will follow her. Discussed plan for admission with the patient she was in agreement. Contact the hospitalist for admission. Procedure Procedures David Valadez DO 06/30/23243 [facility] Work Phone: 1(997) 722-424105-07-2024 History of Present illness Narrative* Sherry Magaña MD - 06/22/2023 11:45 AM EDT Patient and I had a video conference as she was at home in [place] and I was at the [facility] vascular [place] [facility]. She reports doing poorly with bouts of malnutrition driving her to the emergency room. She had a feeding tube by Dr. Kat but has been intermittently unable to tolerate this and so she was started on TPN. I am going to set her up for mesenteric duplex and office visit. There may be a vascular component to this pain which needs to be ruled out. Oftentimes with longstanding median arcuate ligament syndrome there may be internal injuries to the artery that need repair. I will see her back after the ultrasound. Total time on video conference was 10 minutes [facility] Work Phone: 1(782) 317-177905-03-2024 Note [id number]#1.00[facility] History of Present illness Narrative* Breanna Stern APRN.STORE CUSTODIAN - 06/18/2023 10:00 AM EDT Assessment Postoperative Visit HPI: Post op diagnostic [...] 2008, sleeve gastrectomy in 2020, conversion to gastricbypass in 2021, lap assisted ERCP with sphincterotomy in 2022, and MALS surgery in February 2023 whopresents to the ED with Abdominal Pain with [...] by pain management and recommendations are in place,she will follow outpatient with them as she has chronic pain. Anxiety was not controlled and buspar was increased from bid to tid. She will follow up with PCP incase we need to increase mirtazapine or change [...] in February 2023. She had a Corpak placedon 05/19 and TF started which she tolerated. She was admitted on 05/24 for endoscopic PEG-J feeing tubeplacement. Procedure went without complications. She was started [...] D/W Dr Kat Follow up with Dr Shey Stern APRN.STORE CUSTODIAN documented in this encounterMed[facility]-2024 [facility] Nurse Note* Yaneth Mitchell MA - 06/18/2023 9:35 AM EDT What is the reason for your visit today? Post op PEG-J placement Who is your referring physician? Are you having poor oral intake? YES Have you had unintentional weight loss of 15 lbs/7 Kg in the last 3-6 months? NO Bowels: diarrhea Wound: Temperature: No Drains: No [facility]05-03-2024 Nurse Note* Yaneth Mitchell MA - 06/18/2023 9:35 AM EDT What is the reason for your visit today? Post op PEG-J placement Who is your referring physician? Are you having poor oral intake? YES Have you had unintentional weight loss of 15 lbs/7 Kg in the last 3-6 months? NO Bowels: diarrhea Wound: Temperature: No Drains: No documented in this encounterMedina Hospital05-02-2024 Telephone encounter Note * Telephone Encounter - Clarence Hargrove LPN - 06/17/2023 4:53 PM EDT Called patient aware 5/3 appt cancelled provider unavailable Patient aware ketamine spray is controlled medication office visit every 3 months (12 weeks) required. Patient states she has availability next week please call anytime for in person appt she is available after 12pm. Please assist patient with scheduling provider for ketamine refill appt. [facility]05-02-2024 Miscellaneous Notes* Telephone Encounter - Clarence Hargrove LPN - 06/17/2023 4:53 PM EDT Called patient aware 5/3 appt cancelled provider unavailable Patient aware ketamine spray is controlled medication office visit every 3 months (12 weeks) required. Patient states she has availability next week please call anytime for in person appt she is available after 12pm. Please assist patient with scheduling provider for ketamine refill appt. documented in this encounterMedina Hospital05-02-2024 Telephone encounter Note * Telephone Encounter - Serena Neff - 06/17/2023 11:40 AM EDT Phoned Malka back with Dr. Kat's response. He will not be managing patient's TPN. Malka advised that she arranged for hospitalist to manage. Serena Neff CODING TEAM LEAD Manager [employer] for Dr. Kat [facility]05-02-2024 Miscellaneous Notes* Telephone Encounter - Serena Neff - 06/17/2023 11:40 AM EDT Phoned Malka back with Dr. Kat's response. He will not be managing patient's TPN. Malka advised that she arranged for hospitalist to manage. Serena Neff CODING TEAM LEAD Manager [employer] for Dr. Kat * Telephone Encounter - Dorita Manning - 06/15/2023 3:20 PM EDT Malka from [facility] calling asking if Dr Kat will follow patient for TPN. Physician there is discharging patient on TPN. CB# [phone] ext [phone] documented in this encounterMedina Hospital04-30-2024 Telephone encounter Note * Telephone Encounter - Dorita Manning - 06/15/2023 3:20 PM EDT Malka from [facility] calling asking if Dr Kat will follow patient for TPN. Physician there is discharging patient on TPN. CB# [phone] ext [phone] [facility]04-30-2024 [id number] [facility]04-29-2024 Telephone encounter Note* Telephone Encounter - Stephanie Sumner DO - 06/14/2023 4:39 PM EDT Hospital Medicine Transfer Received page for transfer request from [facility] to [place]: Abbey Garcia is 33 year old female who presented with nausea, vomiting and worsening LUQ pain. Pt has complicated gastric surgery history and is currently doing TF via PEG for nutrition. Per [facility] pt is HDS and electrolytes are stable. Pt is requesting transfer to because that is where her care team is and states she only went to [facility] because they have short wait times. ED team gave IVF and IV pain meds which improved LUQ pain somewhat. Pts notified Dr Kat that she was going to ED. Reason for transfer: continuity of care Accepted to hospital medicine service at [place] Stephanie Sumner DO 4:39 PM [facility] Work Phone: 1(690) 652-573204-29-2024 Miscellaneous Notes* Telephone Encounter - Stephanie Sumner DO - 06/14/2023 4:39 PM EDT Hospital Medicine Transfer Received page for transfer request from [facility] to [place]: Abbey Garcia is 33 year old female who presented with nausea, vomiting and worsening LUQ pain. Pt has complicated gastric surgery history and is currently doing TF via PEG for nutrition. Per [facility] pt is HDS and electrolytes are stable. Pt is requesting transfer to because that is where her care team is and states she only went to [facility] because they have short wait times. ED team gave IVF and IV pain meds which improved LUQ pain somewhat. Pts notified Dr Kat that she was going to ED. Reason for transfer: continuity of care Accepted to hospital medicine service at [place] Stephanie Sumner DO 4:39 PM documented in this encounterMedina Hospital04-29-2024 Telephone encounter Note * Telephone Encounter - Serena Neff - 06/14/2023 3:31 PM EDT Phoned patient and to discuss ED admission today. [facility]. Patient complaining of worsening left sided abdominal pain which wraps around to back. Patient states it is a deep kidney pain that is worse with movement. Patient also complaining of severe stabbing headache and feels she is not getting enough fluids in because of her poor oral intake. States she is doing fluid boluses through her G-tube, but does not feel this is adequately managing her hydration status. Patient and wanted to make Dr. Kat aware of situation. Staff message sent to Dr. Kat. No further questions at this time. Serena Neff RN BSN Manager Universal for Dr. Kat [facility]04-29-2024 Miscellaneous Notes* Telephone Encounter - Serena Neff - 06/14/2023 3:31 PM EDT Phoned patient and to discuss ED admission today. Pt is being transferred from [facility] to [facility]. Patient complaining of worsening left sided abdominal pain which wraps around to back. Patient states it is a deep kidney pain that is worse with movement. Patient also complaining of severe stabbing headache and feels she is not getting enough fluids in because of her poor oral intake. States she is doing fluid boluses through her G-tube, but does not feel this is adequately managing her hydration status. Patient and wanted to make Dr. Kat aware of situation. Staff message sent to Dr. Kat. No further questions at this time. Serena Neff RN BSN Manager Universal for Dr. Kat documented in this encounterMedina Hospital04-26-2024 Note [id number]#[id number] 06-09-2023 NoteHNO ID: [id number] Author: PABLO LEBRON PSYD Service: ? Author Type: Psychologist Type: Progress Notes Filed: 06/09/2023 09:52 Note Text: Assessment was conducted virtually. Patient is a resident of [place], and completed the assessment virtually in [place]. Psychologist is licensed and stationed in [place]. 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 Appreciative of supportive and [...] Focused Psychotherapy, Supportive Therapy PROGRESS TO DATE: Sanitation Tank Washer Progress: Stable Short Term Condition: Stable GOALS/OBJECTIVES/INTERVENTIONS: To identify and implement tools for effectively managing symptoms of anxiety, stress, and low mood. Approximately 45 minutes were spent with the patient doing therapy. Pablo LebronRobinCeciliaLawrence F. [facility]igley [facility]04-24-2024 History of Present illness Narrative* Pablo Lebron, [facility] - 06/09/2023 8:59 AM EDT Assessment was conducted virtually. Patient is a resident of [place], and completed the assessment virtually in [place]. Psychologist is licensed and stationed in [place]. Informed consent was discussed and verbal assent was granted by the patient. GENERAL PSYCHOLOGY Session #: 4 (session count starts after [facility] visit) SUBJECTIVE: Major surgery February 2023 (difficult recovery; in and out of hospital due to malnutrition and dehydration, home health aid). Currently in hospital (difficulty with feeding tube) --- feeling better from med tx. 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 Appreciative of supportive and [...] and assertiveness. Pt expresses her appreciation for clinician'sfeedback and support. DIAGNOSIS: PRIMARY: 1: Depression, Controlled Generalized Anxiety Disorder Situational Stress PROVISIONAL: Unspecified trauma and stressor related disorder TREATMENT MODALITIES: Cognitive Behavioral Therapy to behavior modifications, cognitive restructuring, self monitoring and increasing pleasurable activities, Solution Focused Psychotherapy, Supportive Therapy PROGRESS TO DATE: Sanitation Tank Washer Progress: Stable Short Term Condition: Stable GOALS/OBJECTIVES/INTERVENTIONS: To identify and implement tools for effectively managing symptoms of anxiety, stress, and low mood. Approximately 45 minutes were spent with the patient doing therapy. Pablo Lebron PsyD documented in this encounterMedina Hospital04-23-2024 [facility] 06-07-2023 [facility] [id number] [facility]04-16-2024 NoteSum[facility]04-16-2024 History of Present illness Narrative* Vic Ramos MD - 06/01/2023 4:28 PM EDT TELEMEDICINE VISIT Modified Protocol for treatment of other conditions supportive of goal to minimize vulnerable patient exposure to Covid-19 [facility] Emergency Consented for encounter Patient verified by name and Abbey Garcia [id number] 1990 Patient consents to virtual visit Patient located at home Dr. Ramos located at [facility] office SUBJECTIVE: The patient presents to [facility] for pain in [...] which included preparing to see the patient, [id number] patient care, completing clinical documentation, obtaining and/or [...] MD June 01, 2023 documented in this encounterMedina Hospital04-15-2024 Note [id number] [facility]. [facility] 05-30-2023 Miscellaneous Notes* Telephone Encounter - Deacon Kat MD - 05/30/2023 10:16 AM EDT Significant constipation - no bm since Wednesday, a lot of rectal pressure. Tried her linzess, miralax. Recommended enema OTC + dulcolax suppository. Contact me if not improved. Deacon Kat MD documented in this encounterMedina Hospital04-12-2024 Miscellaneous Notes* Telephone Encounter - Nabila Jackson RPh - 05/28/2023 5:48 PM EDT ERx for Nutren sent to [facility] today. These orders are unable to be processed here, but may be eligible to fill using [facility] at [place]. Please review and if appropriate, send forward for processing. Thank you! [facility] [phone] documented in this encounterMedina Hospital04-12-2024 [facility] 05-28-2023 Miscellaneous Notes* Telephone Encounter - Grecia Arcos - 05/28/2023 10:51 AM EDT [facility] requesting 90-day refills as follows: Patient being discharged today; on review of her discharge meds, Linzess dosage remains the same asbelow Requested Prescriptions Pending Prescriptions Disp Refills linaCLOtide (LINZESS) 290 mcg capsule 90 capsule 1 Sig: Take 1 capsule by mouth daily at 6 am. Please review and advise. Grecia Wallace documented in this encounterMedina Hospital04-12-2024 [facility] 05-27-2023 NoteHNO ID: [id number] Author: EH KIMBALL, DEE Service: Nursing Author Type: Registered Nurse Type: Nursing Progress Note Filed: 05/27/2023 09:20 Note Text: Other: 0900 Pt verbalizes interest about bolus feeding. Market Research Consultant made aware. [facility] [id number] [place]Elizabeth [place] [address]-10-2024 NoteAddison Gilbert HospitalEwsmmzlj15-91-9892 NoteAddison Gilbert HospitalVimnuaql88-60-4155 Note [id number] 05-22-2023 NoteAddison Gilbert HospitalDcfwdtuc97-18-7280 NoteAddison Gilbert HospitalSjyzpyjg61-80-5117 Note [facility] HospitalIjtzfnxh08-47-0641 NoteAddison Gilbert [id number] Telephone encounter Note* Telephone Encounter - Itzel Hurley RN - 05/18/2023 9:25 AM EDT Images from the original note were not included. EGD images; please review [facility] EGD Report 05/12/2023 [facility]04-02-2024 Miscellaneous Notes* Telephone Encounter - Itzel Hurley RN - 05/18/2023 9:25 AM EDT Images from the original note were not included. EGD images; please review Salvador Axel EGD Report 05/12/2023 * Telephone Encounter - Silvina Brown - 05/18/2023 9:20 AM EDT Received records from [facility] Reyna. EGD dated 05/12/2023 Discharge Summary 05/11 to 05/14/2023 Ct Abdomen/Pelvis 05/11/2023 Please review thank you! documented in this encounterMedina Hospital04-02-2024 Telephone encounter Note * Telephone Encounter - Silvina Brown - 05/18/2023 9:20 AM EDT Received records from [facility]. EGD dated 05/12/2023 Discharge Summary 05/11 to 05/14/2023 Ct Abdomen/Pelvis 05/11/2023 Please review thank you! [facility]04-01-2024 Hospital Discharge instructions Patient Education 05/17/2023 15:06:10 Vomiting, Adult [...] at pharmacies and retail stores. Eat bland, zdmj-qq-jnvztq foods in small amounts as you are [...] and water are not available, use hand tile layer drainage. Make sure that everyone in your household washes their hands frequently. Take uotg-uxh-wtseyft and prescription medicines only as told by [...] and water are not available, use hand tile layer drainage. Watch your condition for any changes and for signs of dehydration. Keep all follow-up visits. This is important. This information is not intended to replace advice given to you by your health care provider. Make sure you discuss any questions you have with your health care provider. Document Revised: 08/08/2021 Document Reviewed: 08/08/2021 [email or web address] Patient Education 2022 [employer]. Follow Up Care 05/17/2023 14:15:17 With:Jaquan Paula [facility], [facility] Address: When:05/20/2023 [facility]04-01-2024 History of Present illness Narrative* Deacon Kat MD - 05/17/2023 2:40 PM EDT VIRTUAL VISIT PROGRESS NOTE This is a virtual visit using Foremost[employer] Video Visit. It required patient- provider interaction for the medical decision making as documented below. I have communicated my name and active licensure. The patient's identity and physical location wereverified at the time of this visit. Either the patient or their legal sales and marketing representative has been informed of the risks and benefits of -- and alternatives to -- treatment through a remote evaluation andconsents to proceed with the evaluation remotely. Patient in the waiting room of another hospital's ER. Abbey Garcia is a 33 year old female seen for nausea/vomiting/abdominal pain. Had open MALS surgery2.5 months ago, felt good for 1-1.5 months, now feels worse. Had EGD and CTs last week that I don'thave access to. Post prandial nausea, LUQ pain, [...] PM -------- ORIGINAL REPORT -------- Dictation workstation: [id number] Impression Postsurgical changes from gastric bypass. No evidence for obstruction.. MACRO: none Signed by: Corie Garza 03/17/2023 5:00 PM Dictation workstation: [id number] Narrative Interpreted By: Corie Garza, STUDY: FL UPPER GI W DOUBLE CONTRAST W SMALL BOWEL FOLLOW THROUGH; 03/17/2023 4:40 pm INDICATION: Signs/Symptoms:abdominal pain. COMPARISON: None. ACCESSION NUMBER(S): [id number] ORDERING CLINICIAN: TIFFANIE MENDEZ TECHNIQUE: Multiple fluoroscopic spot images were obtained during a single contrast upper GI with KUB. Total fluoroscopy time: 1 minute 32 seconds Radiation exposure (Reference Air Kerma): 99.36 mGy Images: 2 spot images 7 series and 2 delayed AP views of the abdomen FINDINGS: Cephalometric Technician images demonstrate postsurgical changes from previous Tan-en-Y [...] Corie Garza 03/16/2023 5:46 PM Dictation workstation: [id number] Narrative Interpreted By: Corie Garza, STUDY: CT ABDOMEN PELVIS W IV CONTRAST; 03/16/2023 5:27 pm INDICATION: Signs/Symptoms:abdominal pain - with oral and IV contrast. COMPARISON: None.. ACCESSION NUMBER(S): [id number] ORDERING CLINICIAN: TIFFANIE MENDEZ TECHNIQUE: Oral contrast [...] unspecified vomiting type Staff Staff Role Eve Preston MD Proceduralist Medications No administrations occurring from [...] Tissue STOMACH ANTRUM BIOPSY SURGICAL PATHOLOGY EXAM Tomasa Keyes RN 03/19/2023 1431 Pathology STOMACH ANTRUM, BIOPSY: Erosive [...] ER. Deacon Kat MD [facility] Evaluation + Plan noteExtracted from: Title:ED Note [...] Appointment Date:05/19/2023 10:40:00 AM Scheduled Provider:Jaquan Paula Location:[facility] Appointment Type: Hospital Follow Up w/TCM Appointment Date:07/13/2023 08:20:00 AM Scheduled Provider:OLGA GATICA PA-C Location:[facility] Appointment Type:URO Office Visit Appointment Date:08/04/2023 09:45:00 AM Scheduled Provider:Rajni Rouse MD Location:[facility] Appointment Type:URO Office Visit Diagnostic Tests Pending * Drug Screen Urine 05/17/23 Future Scheduled Tests Radiology* US Renal 06/10/22 [facility]03-29-2024 Evaluation + Plan noteExtracted from: Title:Discharge Note Author:Moncho Trejo DO Date:05/14/23 [...] day (at bedtime) With When Contact Information Jaquan Paula, EARNEST, MED Additional Instructions: Follow up with surgeon Additional Instructions: Appointment has already been scheduled Cannabinoid Hyperemesis Syndrome Nausea and Vomiting, Adult, Ywzu-dx-Leoa Extracted from: Title:Progress Note * Author:Miguel JOHNSON, Rosalia Smith Date:05/14/23 Impression and Plan This is a 33-year-old lady with past medical history of gastric sleeve surgery in July 2020, complicated by significant reflux switch to Tan-en-Y January 2022 at [facility], MALS surgery February 2023 which reported helped [...] Orders Sbsq Hospital Care/Day Moderate 35 Minutes 17428 2. Intractable abdominal pain (R10.9: Unspecified abdominal [...] 05/11 Bentyl, Carafate, PPI twice daily Ordered: Sbsq Hospital Care/Day Moderate 35 Minutes 09482 2. Intractable abdominal pain (R10.9: Unspecified abdominal [...] Signs Weight Extracted from: Title:Progress Note * Author:Miguel JOHNSON, Rosalia Smith Date:05/13/23 Impression and Plan This is a 33-year-old lady with past medical history of gastric sleeve surgery in July 2020, complicated by significant reflux switch to Tan-en-Y January 2022 at [facility], MALS surgery February 2023 which reported helped [...] ). Extracted from: Title:Inpatient Consultation -Floor Code* Author:Miguel JOHNSON, Jon Smith Date:05/12/23 Impression and Plan This is a 33-year-old lady with past medical history of gastric sleeve surgery in July 2020, complicated by significant reflux switch to Tan-en-Y January 2022 at [facility], [facility] surgery February 2023 which reported helped her [...] 2022 Author:Kuldip Arcos Jr, DO Date:05/12/23 Plan [employer]esthesiologists (ASA) physical status classification: [...] Ordered: Initial Hospital Care/Day Moderate [address] in Status 2. Intractable abdominal pain [...] Appointment Date:05/19/2023 10:40:00 AM Scheduled Provider:Jaquan Paula Location:[facility] Appointment Type: Hospital Follow Up w/TCM Appointment Date:07/13/2023 08:20:00 AM Scheduled Provider:OLGA GATICA PA-C Location:[facility] Appointment Type:URO Office Visit Appointment Date:08/04/2023 09:45:00 AM Scheduled Provider:Rajni Rouse MD Location:[facility] Appointment Type:URO Office Visit Diagnostic Tests Pending * Copper Level 05/14/23 * HIV Screen 4th Generation wRfx 05/14/23 * Acute Hepatitis A B C Panel 05/14/23 Future Scheduled Tests Radiology* US Renal 06/10/22 [facility]03-29-2024 Hospital Discharge instructions Patient Education 05/14/2023 [...] as coffee and soda. Take and apply owvo-nga-nbfawgj and prescription medicines only as told by [...] provider. Document Revised: 06/01/2022 Document Reviewed: 06/01/2022 [email or web address] Patient Education 2022 [employer]. 05/14/2023 11:56:24 Nausea and Vomiting, Adult, Xhng-cc-Ffxq Nausea and Vomiting, Adult Nausea is feeling [...] fruit juice). ?Low-calorie sports drinks. Eat bland, zvtg-jo-fmgnid foods in small amounts as you are able, such as: ?Bananas. ?Applesauce. ?Rice. ?Low-fat (lean) meats. ?[place]. ?Crackers. Avoid drinking fluids that have a lot of sugar or caffeine in them. This includes energy drinks, sports drinks, and soda. Avoid alcohol. Avoid spicy or fatty foods. General instructions Take fhuu-gla-sfjrpen and prescription medicines only as told by your doctor. Drink enough fluid to keep your pee (urine) pale yellow. Wash your hands often with soap and water for at least 20 seconds. If you cannot use soap and water, use hand tile layer drainage. Make sure that everyone in your home [...] your doctor about eating and drinking. Take wqru-emz-srrbntx and prescription medicines only as told by your doctor. Contact your doctor if your symptoms get worse or you have new symptoms. Keep all follow-up visits. This information is not intended to replace advice given to you by your health care provider. Make sure you discuss any questions you have with your health care provider. Document Revised: 08/08/2021 Document Reviewed: 08/08/2021 [email or web address] Patient Education 2022 [employer]. Follow Up Care 05/12/2023 09:23:09 With:Patient has [facility] in place Address:Unknown When: Unknown With:Jaquan Paula FAM, [facility] Address: [address] [place] [address] [facility] (1) When: Unknown With:Follow up with surgeon Address: When: Unknown Comments:Appointment has already been scheduled [facility]03-29-2024 [facility]:Result Comment: Electronically Signed By: Moncho Trejo DO\.br\Date and Time Signed: 05/14/23 12:06 [id number] [facility] HospitalComment on above:Result Comment: Electronically Signed By: Moncho Trejo DO\.br\Date and Time Signed: 05/12/23 12:59 [id number] Hospital Discharge instructions Patient Education 05/11/2023 16:46:23 Abdominal Pain, Adult, Chco-bp-Onfk Abdominal Pain, Adult Many things can cause belly (abdominal) pain. Most times, belly pain is not dangerous. Many cases of belly pain can be watched and treated at home. Sometimes, though, belly pain is serious. Your doctor will try to find the cause of your belly pain. Follow these instructions at home: Medicines Take wolr-jpc-eauuirg and prescription medicines only as told by [...] your belly pain for any changes. Take gbms-yce-ywpnqmc and prescription medicines only as told by [...] provider. Document Revised: 06/12/2019 Document Reviewed: 06/12/2019 [email or web address] Patient Education 2022 [email or web address] Follow Up Care 05/11/2023 11:48:15 With:Miguel JOHNSON, APRYL Bean, [facility] Address: [address], [address] [address] [phone] When:2 to 4 days Comments:Call today to schedule your follow upReturn to ED if symptoms worsen [facility]03-26-2024 Evaluation + Plan noteExtracted from: Title:ED [...] Date:07/13/2023 08:20:00 AM Scheduled Provider:OLGA GATICA PA-C Location:[facility] Appointment Type:URO Office Visit Appointment Date:08/04/2023 09:45:00 AM Scheduled Provider:Rajni Rouse MD Location:[facility] Appointment Type:URO Office Visit Future Scheduled Tests Radiology* US Renal 06/10/22 [facility]03-25-2024 Miscellaneous Notes* Telephone Encounter - Serena Neff - 05/10/2023 2:51 PM EDT Patient scheduled with Dr. Kat on 05/11. Serena Neff RN BSN Manager Universal for Dr. Kat * Telephone Encounter - [...] Requesting to be seen by Dr. Kat. Serena Neff RN BSN Manager [employer] for Dr. Kat * Telephone Encounter - Dorita Manning - 05/10/2023 10:44 AM EDT Patients calling concerned about Abbey. She has been in the ER 2 times in the last 4 days. She was told to speak to DR who originally put her on TPN to discuss getting back on it. CB# [phone] documented in this [facility] Hospital Discharge instructions Patient Education 05/09/2023 [...] Follow these instructions at home: Medicines Take pcib-kgu-dcgjyvg and prescription medicines only as told by [...] Watch your condition for any changes. Take nsbk-fzq-uobzxoa and prescription medicines only as told by [...] provider. Document Revised: 03/22/2020 Document Reviewed: 06/12/2019 [email or web address] Patient Education 2022 [employer]. Follow Up Care 05/09/2023 11:38:04 With:Earnest Oakes Address: [address] [address]- [phone] Business (1) When:05/12/2023 15:51:27 With:Jon Rivera Address: [address], [address] [address]- [phone] Business (1) When:05/12/2023 15:51:00 With:Jaquan Morrow Address: [address] [place] [phone] Business (1) When:05/12/2023 15:50:53 [facility]03-24-2024 Evaluation + Plan noteExtracted from: Title:ED [...] Date:07/13/2023 08:20:00 AM Scheduled Provider:OLGA GATICA PA-C Location:[facility] Appointment Type:URO Office Visit Appointment Date:08/04/2023 09:45:00 AM Scheduled Provider:Rajni Rouse MD Location:[facility] Appointment Type:URO Office Visit Future Scheduled Tests Radiology* US Renal 06/10/22 [facility]03-22-2024 Miscellaneous Notes* Telephone Encounter - Yvette Morgan - 05/07/2023 11:07 AM EDT Procedure canceled * Telephone Encounter - Santa Hart RN - 05/07/2023 10:47 AM EDT Patient is keeping 07/20/2023 Upper endoscopy appointment and wishes to cancel 05/14/2023 EGD appointment. Scheduling notified. documented in this encounterMedina Hospital03-[facility] Hospital Discharge instructions Patient Education 05/06/2023 [...] Follow these instructions at home: Medicines Take ktdk-xnr-uvxkdnn and prescription medicines only as told by [...] Watch your condition for any changes. Take mrql-prl-rmzwtgp and prescription medicines only as told by [...] provider. Document Revised: 03/22/2020 Document Reviewed: 06/12/2019 [email or web address] Patient Education 2022 [employer]. Follow Up Care 05/06/2023 15:41:48 With:Follow-up with your surgeon at soon as possible, call the office tomorrow to schedule an appointment. Return to the ER with any new or worsening symptoms. Address:Unknown When: Unknown With:Jaquan Morrow Address:Unknown When:Within 3 Day(s) [facility]03-13-2024 History of Present illness Narrative* Kasie [...] race variable for the IDMS-Traceable creatinine methods. [email or web address]://jasn.asnjournals.org/content//[email or web address] Calcium 8.5 - 10.4 mg/dL 8.7 Albumin [...] the body of the stomach FINAL DIAGNOSIS [facility] STOMACH ANTRUM, BIOPSY: Erosive chronic active gastritis [...] healthy appearing mucosa. This was traversed. The jequb-fk-lubboza limb was characterized by healthy appearing mucosa. [...] healthy appearing mucosa. This was traversed. The tdfuk-da-wopftyq limb was characterized by healthy appearing mucosa. The jejunojejunal anastomosis was characterized by healthy appearing mucosa. The examined jejunum was normal. Impression: - Normal esophagus. - Tan-en-Y gastrojejunostomy with gastrojejunal anastomosis characterized by healthy appearing mucosa. No ulceration or stenosis. - Normal examined jejunum. - No specimens collected. Upper GI SERIES 03/17/23 FINDINGS: Cephalometric Technician images demonstrate postsurgical changes from previous Tan-en-Y [...] destructive bone lesions. CT ABD/PEL 12/06/22 ABDOMEN: Cephalometric Technician (topogram) images: No additional findings. Images of [...] which included preparing to see the patient, fimv-rw-wntf patient care, completing clinical documentation, obtaining and/or reviewing separately obtained history, performing a medically appropriate examination, counseling and educating the pat ient/family/caregiver, and ordering medications, tests, or procedures. Kasie Avalos MD April 22, 2023 2:06 PM documented in this encounterMedina [facility]03-13-2024 [facility] History of Present illness Narrative* Sherry Magaña [...] she connect with her bariatric surgeon at [facility]. I will follow-up with her in 2 weeks by telephone. [facility] Work Phone: 1(221) 832-117102-21-2024 [facility]Sum[facility] History of Present illness Narrative* Deacon Kat MD - 04/07/2023 1:48 PM EST VIRTUAL VISIT PROGRESS NOTE This is a virtual visit using [employer] Video Visit. It required patient- provider interaction for the medical decision making as documented below. I have communicated my name and active licensure. The patient's identity and physical location wereverified at the time of this visit. Either the patient or their legal sales and marketing representative has been informed of the risks [...] She had a recent EGD through the [employer] system which I was able to obtain [...] Low Deacon Kat MD documented in this encounterMedina Hospital02-16-2024 Hospital Discharge instructions Patient Education 04/02/2023 [...] Follow these instructions at home: Medicines Take suot-ymx-nuamhjr and prescription medicines only as told by [...] provider. Document Revised: 04/17/2021 Document Reviewed: 04/17/2021 [email or web address] Patient Education 2022 [employer]. 04/02/2023 17:02:34 Abdominal Pain, Adult Abdominal Pain, [...] Follow these instructions at home: Medicines Take kmjo-dtv-husenxr and prescription medicines only as told by [...] Watch your condition for any changes. Take szao-iny-omgqsmv and prescription medicines only as told by [...] provider. Document Revised: 03/22/2020 Document Reviewed: 06/12/2019 [email or web address] Patient Education 2022 [employer]. Follow Up Care 04/02/2023 10:53:50 With:Jon Rivera Address: [address] [place] [address], [address] [address]- [phone] Business (1) When:04/05/2023 16:23:56 Comments:Make sure to follow-up with your primary doctor and your surgeon. Follow-up with Dr. Rivera for the GI. Return to the emergency room if your pain gets worse or any new symptoms. With:Jaquan Morrow Address:Unknown When:Within 3 Day(s) [facility]02-16-2024 Evaluation + Plan noteExtracted from: Title:ED Note Author:Jose Ramon Martinez, Ashutosh Arroyo te:04/02/23 1. Chest pain (R07.9: Chest pain, unspecified) 2. Abdominal pain (R10.9: Unspecified abdominal pain) Orders: dicyclomine, 20 mg = 2 cap(s), Oral, QID, # 20 cap(s), Refills(s) 0, Pharmacy: [facility]/pharmacy #[id number], 167, cm, 04/02/23 11:01:00 EST, Height/Length Dosing, [...] nausea/vomiting, # 16 tab(s), Refills(s) 0, Pharmacy: [facility]/pharmacy #[id number], 167, cm, 04/02/23 11:01:00 EST, [...] day(s), # 560 mL, Refills(s) 0, Pharmacy: [facility]/pharmacy #[id number], 167, cm, 04/02/23 11:01:00 EST, [...] Date:08/04/2023 09:45:00 AM Scheduled Provider:Rajni Rouse MD Location:[facility] Appointment Type:URO Office Visit Future Scheduled Tests Radiology* US Renal 06/10/22 [facility]02-03-20[facility] Nurse Note* Stacie Blanco RN - 03/20/2023 4:41 PM EST Patient discharged home to care of self and . Patient transported to front entrance via wheelchair. No injuries, bleeding or distress noted. [facility]02-03-[facility] Nurse Note* Stacie Blanco RN - [...] EST Ronnie foster cnp into see pt * Andie Lugo RN - 03/18/2023 7:27 AM EST Assumed care of pt, pt resting quietly in bed, ng to liws , will monitor * Cathy Madera RN - 03/17/2023 6:05 PM EST NG tube re inserted per order. Patient tolerated well. No complications. This nurse requested orderfor xray for placement of NG tube. Order received. Waiting on agricultural technician to verify placement per order. Will [...] per to re insert NG tube and logging crew supervisor to low suction. Will re attempt with patients consent. * Cathy Madera RN - 03/17/2023 12:06 PM EST Patient transported to Xray for placement of NG. Patient off unit. * Cathy Madera RN - 03/17/2023 11:44 AM EST This nurse notified wheel alignment technician that patient had NG tube placed and needed Xray for placement verification. This nurse messaged Rosa YUN to notify her that NG tube was placed and needed separate order for NG tube placement per wheel alignment technician. Order received. Will continue to monitor [...] to ensure patient safety. documented in this [facility] Work Phone: 1(123) 605-954302-03-2024 Nurse Note* Stacie Blanco RN - 03/20/2023 4:01 PM EST Provided/explained discharge instructions and summary. Provided opportunity for questions and discussion. No complaints or concerns communicated. [facility] Work Phone: 1(495) 443-927102-03-2024 History of Present illness Narrative* Nathalie Tyler RN - 03/20/2023 3:35 PM EST Patient is medically ready for discharge. Per previous hospice patient care secretary, plan for home with home health care. Message to provider that external home care referral is needed. UPDATE 1549: Discharging provider indicates no continued skilled needs for home care. Per bedside nurse May, patient is in agreement that she no longer needs home health care services. Referral to [facility] updated and closed. Patient will discharge no with no reported skilled needs. * JAMA Smith - 03/20/2023 11:40 AM EST Abbey Garcia [...] unspecified vomiting type Staff Staff Role Eve Preston MD Proceduralist Medications No administrations occurring from [...] Tissue STOMACH ANTRUM BIOPSY SURGICAL PATHOLOGY EXAM Tomasa Keyes RN 03/19/2023 1431 Procedure Location [address] [address] Referring Provider Generic Provider [place] No address on file Procedure Provider No [...] JAMA Lynn - 03/20/2023 11:17 AM EST Abbey Garcia is a 32 y.o. female on day 4 of admission presenting with Abdominal pain. Subjective Patient seen and examined. She underwent EGD yesterday with Dr. Preston. Dr. Jah Darnell was also present during the procedure. [...] Dr. Magaña. -EGD report reviewed, appreciate Dr. Preston and Dr. Jah Darnell input. Component of gastroparesis, Reglan started. [...] 03/17/2023 done at 2:05 p.m. ACCESSION NUMBER(S): [id number] ORDERING CLINICIAN: TIFFANIE MENDEZ TECHNIQUE: AP erect view of the chest FINDINGS: The nasogastric tube has not ch anged in placement with the tip seen within the proximal thoracic esophagus. Heart and mediastinum are normally visualized. Lungs are clear. Distal tip of nasogastric tube in proximal thoracic esophagus just above the aortic arch. Signed by: Nya Ahmadi 03/17/2023 8:19 PM Dictation workstation: [id number] FL upper GI w double contrast w small bowel follow through Result Date: 03/17/2023 Interpreted By: Corie Garza, STUDY: FL UPPER GI W DOUBLE CONTRAST W SMALL BOWEL FOLLOW THROUGH; 03/17/2023 4:40 pm INDICATION: Signs/Symptoms:abdominal pain. COMPARISON: None. ACCESSION NUMBER(S): [id number] ORDERING CLINICIAN: TIFFANIE MENDEZ TECHNIQUE: Multiple fluoroscopic spot images were obtained during a single contrast upper GI with KUB. Total fluoroscopy time: 1 minute 32 seconds Radiation exposure (Reference Air Kerma): 99.36 mGy Images: 2 spot images 7 series and 2 delayed AP viewsof the abdomen FINDINGS: Cephalometric Technician images demonstrate postsurgical changes from previous Tan-en-Y [...] Corie Garza 03/17/2023 5:00 PM Dictation workstation: [id number] XR chest 1 view Result Date: 03/17/2023 Interpreted By: Corie Garza, STUDY: XR CHEST 1 VIEW; 03/17/2023 12:41 pm INDICATION: Signs/Symptoms:Status post NG tube placement. COMPARISON: None available ACCESSION NUMBER(S): [id number] ORDERING CLINICIAN: TIFFANIE MENDEZ FINDINGS: RESULT: Nasogastric [...] Corie Garza 03/17/2023 4:19 PM Dictation workstation: [id number] CT abdomen pelvis w IV contrast Result Date: 03/16/2023 Interpreted By: Corie Garza, STUDY: CT ABDOMEN PELVIS W IV CONTRAST; 03/16/2023 5:27 pm INDICATION: Signs/Symptoms:abdominal pain - with oral and IV contrast. COMPARISON: None.. ACCESSION NUMBER(S): [id number] ORDERING CLINICIAN: TIFFANIE MENDEZ TECHNIQUE: Oral contrast [...] Corie Garza 03/16/2023 5:46 PM Dictation workstation: [id number] XR chest 1 view Result Date: 03/06/2023 Interpreted By: Sara Zarate, STUDY: XR CHEST 1 VIEW; 03/06/2023 7:32 am INDICATION: Signs/Symptoms:post op COMPARISON: None ACCESSION NUMBER(S): [id number] ORDERING CLINICIAN: JASON FOSTER TECHNIQUE: Frontal and [...] Sara Zarate 03/06/2023 1:48 PM Dictation workstation: [id number] XR chest 1 view Result Date: 03/05/2023 Interpreted By: Baldomero Hendrickson, STUDY: XR CHEST 1 VIEW; 03/05/2023 3:11 pm INDICATION: CLINICAL INFORMATION: Signs/Symptoms:NG tube placement confirmation. COMPARISON: 03/05/2019 at 745 hours ACCESSION NUMBER(S): [id number] ORDERING CLINICIAN: DESMOND TIRADO TECHNIQUE: Portable chest [...] Baldomero Hendrickson 03/05/2023 3:31 PM Dictation workstation: [id number] XR chest 1 view Result Date: 03/05/2023 Interpreted By: Nya Ahmadi, STUDY: XR CHEST 1 VIEW 03/05/2023 7:51 am INDICATION: Signs/Symptoms:confirm line placement COMPARISON: None available. ACCESSION NUMBER(S): [id number] ORDERING CLINICIAN: SERENA GEORGE TECHNIQUE: AP erect view of the chest FINDINGS: Right arm PICC line terminates in the SVC. There is no pneumothorax. The heart, mediastinum, and lungs are normally visualized. Right arm PICC line terminating in SVC without pneumothorax. No acute cardiopulmonary disease. Signed by: Nya Ahmadi 03/05/2023 7:54 AM Dictation workstation: [id number] Assessment/Plan Principal Problem: Abdominal pain NV, Epigastric Pain (LFTs are normal. CT a/p normal) -EGD 2/[address] Preston with gastric erythema; however, prior surgery site/bypass [...] going for EGD later today with Dr. Preston. Dr. Jah Darnell to observe EGD and make recommendations. [...] unspecified vomiting type Staff Staff Role Eve Preston MD Proceduralist Medications No administrations occurring from [...] Tissue STOMACH ANTRUM BIOPSY SURGICAL PATHOLOGY EXAM Tomasa Keyes RN 03/19/2023 1431 Procedure Location [address] [address] Referring Provider Generic Provider [place] No address on file Procedure Provider No name on file XR chest 1 view Result Date: 03/17/2023 Interpreted By: Nya Ahmadi, STUDY: XR CHEST 1 VIEW 03/17/2023 7:09 pm INDICATION: Signs/Symptoms:S/p NG placement COMPARISON: 03/17/2023 done at 2:05 p.m. ACCESSION NUMBER(S): [id number] ORDERING CLINICIAN: TIFFANIE MENDEZ TECHNIQUE: AP erect view of the chest FINDINGS: The nasogastric tube has not ch anged in placement with the tip seen within the proximal thoracic esophagus. Heart and mediastinum are normally visualized. Lungs are clear. Distal tip of nasogastric tube in proximal thoracic esophagus just above the aortic arch. Signed by: Nya Ahmadi 03/17/2023 8:19 PM Dictation workstation: [id number] FL upper GI w double contrast w small bowel follow through Result Date: 03/17/2023 Interpreted By: Corie Garza, STUDY: FL UPPER GI W DOUBLE CONTRAST W SMALL BOWEL FOLLOW THROUGH; 03/17/2023 4:40 pm INDICATION: Signs/Symptoms:abdominal pain. COMPARISON: None. ACCESSION NUMBER(S): [id number] ORDERING CLINICIAN: TIFFANIE MENDEZ TECHNIQUE: Multiple fluoroscopic spot images were obtained during a single contrast upper GI with KUB. Total fluoroscopy time: 1 minute 32 seconds Radiation exposure (Reference Air Kerma): 99.36 mGy Images: 2 spot images 7 series and 2 delayed AP viewsof the abdomen FINDINGS: Cephalometric Technician images demonstrate postsurgical changes from previous Tan-en-Y [...] Corie Garza 03/17/2023 5:00 PM Dictation workstation: [id number] XR chest 1 view Result Date: 03/17/2023 Interpreted By: Corie Garza, STUDY: XR CHEST 1 VIEW; 03/17/2023 12:41 pm INDICATION: Signs/Symptoms:Status post NG tube placement. COMPARISON: None available ACCESSION NUMBER(S): [id number] ORDERING CLINICIAN: TIFFANIE MENDEZ FINDINGS: RESULT: Nasogastric [...] Corie Garza 03/17/2023 4:19 PM Dictation workstation: [id number] CT abdomen pelvis w IV contrast Result Date: 03/16/2023 Interpreted By: Corie aGrza, STUDY: CT ABDOMEN PELVIS W IV CONTRAST; 03/16/2023 5:27 pm INDICATION: Signs/Symptoms:abdominal pain - with oral and IV contrast. COMPARISON: None.. ACCESSION NUMBER(S): [id number] ORDERING CLINICIAN: TIFFANIE MENDEZ TECHNIQUE: Oral contrast [...] Corie Garza 03/16/2023 5:46 PM Dictation workstation: [id number] XR chest 1 view Result Date: 03/06/2023 Interpreted By: Sara Zarate, STUDY: XR CHEST 1 VIEW; 03/06/2023 7:32 am INDICATION: Signs/Symptoms:post op COMPARISON: None ACCESSION NUMBER(S): [id number] ORDERING CLINICIAN: JASON FOSTER TECHNIQUE: Frontal and [...] Sara Zarate 03/06/2023 1:48 PM Dictation workstation: [id number] XR chest 1 view Result Date: 03/05/2023 Interpreted By: Baldomero eHndrickson, STUDY: XR CHEST 1 VIEW; 03/05/2023 3:11 pm INDICATION: CLINICAL INFORMATION: Signs/Symptoms:NG tube placement confirmation. COMPARISON: 03/05/2019 at 745 hours ACCESSION NUMBER(S): [id number] ORDERING CLINICIAN: DESMOND TIRADO TECHNIQUE: Portable chest [...] Baldomero Hendrickson 03/05/2023 3:31 PM Dictation workstation: [id number] XR chest 1 view Result Date: 03/05/2023 Interpreted By: Nya Ahmadi, STUDY: XR CHEST 1 VIEW 03/05/2023 7:51 am INDICATION: Signs/Symptoms:confirm line placement COMPARISON: None available. ACCESSION NUMBER(S): [id number] ORDERING CLINICIAN: SERENA GEORGE TECHNIQUE: AP erect view of the chest FINDINGS: Right arm PICC line terminates in the SVC. There is no pneumothorax. The heart, mediastinum, and lungs are normally visualized. Right arm PICC line terminating in SVC without pneumothorax. No acute cardiopulmonary disease. Signed by: Nya Ahmadi 03/05/2023 7:54 AM Dictation workstation: [id number] Assessment/Plan -Abdominal pain/nausea -Median arcuate ligament syndrome, [...] professional and overall care of this patient. Jason Foster, ETHNOARCHAEOLOGY PROFESSOR-STORE CUSTODIAN * Kurt Matos MD - 03/19/2023 3:26 [...] Problem: Abdominal pain EGD performed by Dr. Preston observed. Normal appearing gastric pouch. Of note, there was retainedgastric secretions in gastric pouch which was not expected. No ulcer, no stricture, no bile in rouxlimb, short candycane. No evidence of abnormal post-gastric bypass anatomy based on endoscopic or radiographic findings. Patient may have element of poor gastric empyting. After discussion with Dr. Preston, she may benefit from trial on low dose reglan with meals if no contraindication. Will deferto her bariatric surgeon, Dr. Morel, at [place]. Will sign off. Kurt Matos MD * Anam Davila RN - 03/19/2023 3:11 PM EST Abbey Garcia is a 32 y.o. female on day 3 of admission presenting with Abdominal pain. Met with patient at bedside. Patient states she has been active with [facility] in [place] . Patient would like to continue HHC with [facility]. Referral was sent. EGD scheduled today. Has NG in place. [facility] is able to accept for STEF. NG discontinued. On clear liquids. WILL NEED AND EXTERNAL REFERRAL FOR RESUMPTION OF [facility]. Anam Davila RN * Shelley Nash, ETHNOARCHAEOLOGY PROFESSOR-STORE CUSTODIAN - 03/19/2023 12:32 PM EST Abbey Garcia [...] her usual [facility] surgeons after DC. Acid run lead. MVI, B12. I spent 15 minutes in the professional and overall care of this patient. Shelley Nash, SLIM-BETH * Lizz Brunson APRN-BETH - 03/19/2023 10:09 AM EST Abbey Garcia [...] 03/17/2023 done at 2:05 p.m. ACCESSION NUMBER(S): [id number] ORDERING CLINICIAN: TIFFANIE MENDEZ TECHNIQUE: AP erect view of the chest FINDINGS: The nasogastric tube has not changed in placement with the tip seen within the proximal thoracic esophagus. Heart and mediastinum are normally visualized. Lungs are clear. Impression: Distal tip of nasogastric tube in proximal thoracic esophagus just above the aortic arch. Signed by: Nya Ahmadi 03/17/2023 8:19 PM Dictation workstation: [id number] FL upper GI w double contrast w small bowel follow through Narrative: Interpreted By: Corie Garza, STUDY: FL UPPER GI W DOUBLE CONTRAST W SMALL BOWEL FOLLOW THROUGH; 03/17/2023 4:40 pm INDICATION: Signs/Symptoms:abdominal pain. COMPARISON: None. ACCESSION NUMBER(S): [id number] ORDERING CLINICIAN: TIFFANIE MENDEZ TECHNIQUE: Multiple fluoroscopic spot images were obtained during a single contrast upper GI with KUB. Total fluoroscopy time: 1 minute 32 seconds Radiation exposure (Reference Air Kerma): 99.36 mGy Images: 2 spot images 7 series and 2 delayed AP views of the abdomen FINDINGS: Cephalometric Technician images demonstrate postsurgical changes from previous Tan-en-Y [...] Corie Garza 03/17/2023 5:00 PM Dictation workstation: [id number] XR chest 1 view Narrative: Interpreted By: Corie Garza, STUDY: XR CHEST 1 VIEW; 03/17/2023 12:41 pm INDICATION: Signs/Symptoms:Status post NG tube placement. COMPARISON: None available ACCESSION NUMBER(S): [id number] ORDERING CLINICIAN: TIFFANIE MENDEZ FINDINGS: RESULT: Nasogastric [...] Corie Garza 03/17/2023 4:19 PM Dictation workstation: [id number] Physical Exam Vitals and nursing note reviewed. [...] her usual [facility] surgeons after DC. Acid run lead. MVI, B12. I spent 15 minutes in the professional and overall care of this patient. JAMA Greenberg * JAMA Lynn - 03/18/2023 3:11 PM [...] for EGD tomorrow 03/19/2023. - Consult Dr. Jah Nguyen for further evaluation and input -Hospitalist [...] Marino with [facility], prescriptions filled through [facility] in [place]. Uncertain if pt will have dc needs. Her last admit she went home with [facility]. TCC to follow ongoing medical workup. Safe dc plan not secured-TCC to follow Sabina Hurd MSSA, REGULATORY SPECIALIST * JAMA Smith - 03/18/2023 10:57 AM EST Abbey Garcai is a 32 y.o. female on day [...] 03/17/2023 done at 2:05 p.m. ACCESSION NUMBER(S): [id number] ORDERING CLINICIAN: TIFFANIE MENDEZ TECHNIQUE: AP erect view of the chest FINDINGS: The nasogastric tube has not changed in placement with the tip seen within the proximal thoracic esophagus. Heart and mediastinum are normally visualized. Lungs are clear. Impression: Distal tip of nasogastric tube in proximal thoracic esophagus just above the aortic arch. Signed by: Nya Ahmadi 03/17/2023 8:19 PM Dictation workstation: [id number] FL upper GI w double contrast w small bowel follow through Narrative: Interpreted By: Corie Garza, STUDY: FL UPPER GI W DOUBLE CONTRAST W SMALL BOWEL FOLLOW THROUGH; 03/17/2023 4:40 pm INDICATION: Signs/Symptoms:abdominal pain. COMPARISON: None. ACCESSION NUMBER(S): [id number] ORDERING CLINICIAN: TIFFANIE MENDEZ TECHNIQUE: Multiple fluoroscopic spot images were obtained during a single contrast upper GI with KUB. Total fluoroscopy time: 1 minute 32 seconds Radiation exposure (Reference Air Kerma): 99.36 mGy Images: 2 spot images 7 series and 2 delayed AP views of the abdomen FINDINGS: Cephalometric Technician images demonstrate postsurgical changes from previous Tan-en-Y [...] Corie Garza 03/17/2023 5:00 PM Dictation workstation: [id number] XR chest 1 view Narrative: Interpreted By: Corie Garza, STUDY: XR CHEST 1 VIEW; 03/17/2023 12:41 pm INDICATION: Signs/Symptoms:Status post NG tube placement. COMPARISON: None available ACCESSION NUMBER(S): [id number] ORDERING CLINICIAN: TIFFANIE MENDEZ FINDINGS: RESULT: Nasogastric [...] Corie Garza 03/17/2023 4:19 PM Dictation workstation: [id number] Physical Exam Vitals and nursing note reviewed. [...] 03/17/2023 done at 2:05 p.m. ACCESSION NUMBER(S): [id number] ORDERING CLINICIAN: TIFFANIE MENDEZ TECHNIQUE: AP erect view of the chest FINDINGS: The nasogastric tube has not ch anged in placement with the tip seen within the proximal thoracic esophagus. Heart and mediastinum are normally visualized. Lungs are clear. Distal tip of nasogastric tube in proximal thoracic esophagus just above the aortic arch. Signed by: Nya Ahmadi 03/17/2023 8:19 PM Dictation workstation: [id number] FL upper GI w double contrast w small bowel follow through Result Date: 03/17/2023 Interpreted By: Corie Garza, STUDY: FL UPPER GI W DOUBLE CONTRAST W SMALL BOWEL FOLLOW THROUGH; 03/17/2023 4:40 pm INDICATION: Signs/Symptoms:abdominal pain. COMPARISON: None. ACCESSION NUMBER(S): [id number] ORDERING CLINICIAN: TIFFANIE MENDEZ TECHNIQUE: Multiple fluoroscopic spot images were obtained during a single contrast upper GI with KUB. Total fluoroscopy time: 1 minute 32 seconds Radiation exposure (Reference Air Kerma): 99.36 mGy Images: 2 spot images 7 series and 2 delayed AP viewsof the abdomen FINDINGS: Cephalometric Technician images demonstrate postsurgical changes from previous Tan-en-Y [...] Corie Garza 03/17/2023 5:00 PM Dictation workstation: [id number] XR chest 1 view Result Date: 03/17/2023 Interpreted By: Corie Garza, STUDY: XR CHEST 1 VIEW; 03/17/2023 12:41 pm INDICATION: Signs/Symptoms:Status post NG tube placement. COMPARISON: None available ACCESSION NUMBER(S): [id number] ORDERING CLINICIAN: TIFFANIE MENDEZ FINDINGS: RESULT: Nasogastric [...] Corie Garza 03/17/2023 4:19 PM Dictation workstation: [id number] CT abdomen pelvis w IV contrast Result Date: 03/16/2023 Interpreted By: Corie Garza, STUDY: CT ABDOMEN PELVIS W IV CONTRAST; 03/16/2023 5:27 pm INDICATION: Signs/Symptoms:abdominal pain - with oral and IV contrast. COMPARISON: None.. ACCESSION NUMBER(S): [id number] ORDERING CLINICIAN: TIFFANIE MENDEZ TECHNIQUE: Oral contrast [...] Corie Garza 03/16/2023 5:46 PM Dictation workstation: [id number] Assessment/Plan Abdominal pain, nausea, chronic intolerance to [...] at present Will discuss EGD with Dr. Preston tomorrow. JAMA Zamora * JAMA Nunez - 03/18/2023 8:50 AM EST Abbey Garcia [...] 03/17/2023 done at 2:05 p.m. ACCESSION NUMBER(S): [id number] ORDERING CLINICIAN: TIFFANIE MENDEZ TECHNIQUE: AP erect view of the chest FINDINGS: The nasogastric tube has not ch anged in placement with the tip seen within the proximal thoracic esophagus. Heart and mediastinum are normally visualized. Lungs are clear. Distal tip of nasogastric tube in proximal thoracic esophagus just above the aortic arch. Signed by: Nya Ahmadi 03/17/2023 8:19 PM Dictation workstation: [id number] FL upper GI w double contrast w small bowel follow through Result Date: 03/17/2023 Interpreted By: Corie Garza, STUDY: FL UPPER GI W DOUBLE CONTRAST W SMALL BOWEL FOLLOW THROUGH; 03/17/2023 4:40 pm INDICATION: Signs/Symptoms:abdominal pain. COMPARISON: None. ACCESSION NUMBER(S): [id number] ORDERING CLINICIAN: TIFFANIE MENDEZ TECHNIQUE: Multiple fluoroscopic spot images were obtained during a single contrast upper GI with KUB. Total fluoroscopy time: 1 minute 32 seconds Radiation exposure (Reference Air Kerma): 99.36 mGy Images: 2 spot images 7 series and 2 delayed AP viewsof the abdomen FINDINGS: Cephalometric Technician images demonstrate postsurgical changes from previous Tan-en-Y [...] Corie Garza 03/17/2023 5:00 PM Dictation workstation: [id number] XR chest 1 view Result Date: 03/17/2023 Interpreted By: Corie Garza, STUDY: XR CHEST 1 VIEW; 03/17/2023 12:41 pm INDICATION: Signs/Symptoms:Status post NG tube placement. COMPARISON: None available ACCESSION NUMBER(S): [id number] ORDERING CLINICIAN: TIFFANIE MENDEZ FINDINGS: RESULT: Nasogastric [...] Corie Garza 03/17/2023 4:19 PM Dictation workstation: [id number] CT abdomen pelvis w IV contrast Result Date: 03/16/2023 Interpreted By: Corie Garza, STUDY: CT ABDOMEN PELVIS W IV CONTRAST; 03/16/2023 5:27 pm INDICATION: Signs/Symptoms:abdominal pain - with oral and IV contrast. COMPARISON: None.. ACCESSION NUMBER(S): [id number] ORDERING CLINICIAN: TIFFANIE MENDEZ TECHNIQUE: Oral contrast [...] Corie Garza 03/16/2023 5:46 PM Dictation workstation: [id number] XR chest 1 view Result Date: 03/06/2023 Interpreted By: Sara Zarate, STUDY: XR CHEST 1 VIEW; 03/06/2023 7:32 am INDICATION: Signs/Symptoms:post op COMPARISON: None ACCESSION NUMBER(S): [id number] ORDERING CLINICIAN: JASON FOSTER TECHNIQUE: Frontal and [...] Sara Zarate 03/06/2023 1:48 PM Dictation workstation: [id number] XR chest 1 view Result Date: 03/05/2023 Interpreted By: Baldomero Hendrickson, STUDY: XR CHEST 1 VIEW; 03/05/2023 3:11 pm INDICATION: CLINICAL INFORMATION: Signs/Symptoms:NG tube placement confirmation. COMPARISON: 03/05/2019 at 745 hours ACCESSION NUMBER(S): [id number] ORDERING CLINICIAN: DESMOND TIRADO TECHNIQUE: Portable chest [...] Baldomero Hendrickson 03/05/2023 3:31 PM Dictation workstation: [id number] XR chest 1 view Result Date: 03/05/2023 Interpreted By: Nya Ahmadi, STUDY: XR CHEST 1 VIEW 03/05/2023 7:51 am INDICATION: Signs/Symptoms:confirm line placement COMPARISON: None available. ACCESSION NUMBER(S): [id number] ORDERING CLINICIAN: SERENA GEORGE TECHNIQUE: AP erect view of the chest FINDINGS: Right arm PICC line terminates in the SVC. There is no pneumothorax. The heart, mediastinum, and lungs are normally visualized. Right arm PICC line terminating in SVC without pneumothorax. No acute cardiopulmonary disease. Signed by: Nya Ahmadi 03/05/2023 7:54 AM Dictation workstation: [id number] Assessment/Plan Principal Problem: Abdominal pain NV, Epigastric Pain (LFTs are normal. CT a/p normal) -Complicated recent surgical hx with tan en y and gastric sleeve followed by [facility] and vascular intervention earlier this month. She was having a post op ileus at that time. Still on narcotics -with proceed with EGD for symptomatic treatment in the presence of Dr. Jah Nguyen. -EGD order placed, tentative plan for tomorrow -Increase PPI to twice daily Deepika Roy APRN-STORE CUSTODIAN Associated attestation - Yani Wong MD - 03/18/2023 11:13 PM EST Seen and examined . I agree with assessment. Labs reviewed. Surgical notes reviewed. Overall after recent vascular surgery abdominal pain is better but is still not able to eat. Proceed with EGD tomorrow continue PPI twice daily and antiemetic as needed. * Lizz Brunson APRN-BETH - 03/17/2023 11:30 AM EST Abbey Garcia [...] and IV contrast. COMPARISON: None.. ACCESSION NUMBER(S): [id number] ORDERING CLINICIAN: TIFFANIE MENDEZ TECHNIQUE: Oral contrast [...] Corie Garza 03/16/2023 5:46 PM Dictation workstation: [id number] Physical Exam Vitals and nursing note reviewed. [...] ordered by vascular. Will continue to follow. JAMA Smith * Sherry Magaña MD - 03/16/2023 4:59 [...] in her local emergency room out in [place]. She was discharged after her nausea was relieved last night but this nausea recurred and she was transferred here. I suspect given adequate pain control and control of her nausea that once the inflammation of her surgery resolves she will feel much better. Pancreatitis and bowel ischemia have been ruled out through lab testing and noncontrast CT done yesterday in [place]. I am going to get a CT scan with IV andoral contrast today and start IV fluids and antiemetics as well as analgesics. Unless she starts taking p.o.'s well I will likely place a feeding tube and start enteral feedings during this hospitalization. She will be getting a gastroenterology consultation as well as a foregut surgery consultation. documented in this [facility] Work Phone: 1(327) 119-466102-03-2024 Hospital Discharge instructions* Discharge Instructions* Jason Foster ETHNOARCHAEOLOGY PROFESSOR-STORE CUSTODIAN - 03/20/2023 3:21 PM EST What to [...] up in 1-2 weeks [facility]: 1(460) 874-237602-02-2024 Plan of care note* Care Plan - Nathalie Campos RN - 03/19/2023 9:37 PM EST [...] pain meds throughout the shift Outcome: Progressing [facility]02-02-2024 Miscellaneous Notes* Care Plan - Nathalie Campos RN - 03/19/2023 9:37 PM EST [...] these barriers include. * Care Plan - Nathalie Campos RN - 03/18/2023 9:20 PM EST [...] for the shift include decrease nausea * Leeanne Tejada - Nathalie Campos RN - 03/17/2023 10:17 PM EST [...] the [facility] [place] [facility] [place] [facility] and sent home, again [...] issue which will be best done at [facility] either as inpatient or outpatient, where she has ongoing work, or is a postoperative situation that has been discussed multiple times with the primary operating service (and I have discussed with Tiffanie Mendez CNP with their service and there appears to be a good plan for imaging studies), and can ba admitted by their service). documented in this [facility] Work Phone: 1(594) 332-303302-02-2024 Plan of care note* Care Plan - [...] include. Recommendations to address these barriers include. [facility]02-01-2024 Plan of care note* Care Plan - Nathalie Campos RN - 03/18/2023 9:20 PM EST [...] pain meds throughout the shift Outcome: Progressing [facility] Work Phone: 1(473) 377-250202-01-2024 Nurse Note* Andie Lugo RN - 03/18/2023 4:47 PM EST Pt resting quietly in bed, no distres noted [facility]-01-[facility] Nurse Note* Andie Lugo RN - 03/18/2023 3:17 PM EST Pt given IS and instructed how to use, pt verbalized understanding [facility] Work Phone: 1(701) 895-685802-01-2024 Nurse Note* Andie Lugo RN - 03/18/2023 2:50 PM EST Ronnie foster cnp into see pt [facility] Work Phone: 1(794) 634-928702-01-2024 Consult note* Nablia Moore RDN, SALAVDOR - 03/18/2023 2:31 PM EST Nutrition Assessement Note Nutrition Assessment Reason for Assessment: Admission nursing screening (MST 2) Reason for Hospital Admission: bAbey Garcia is a 32 y.o. female who [...] Daily, JORGITO Judd CNP, 20 mg at 1 famotidine (Pepcid) tablet 20 mg, 20 mg, [...] Nightly, JORGITO Judd CNP, 15 mg at 03/17/231955 morphine injection 2 mg, 2 mg, intravenous, q4h PRN, JAMA Smith, 2 mg at 03/18/23 140 ondansetron (Zofran) [...] 17 g, 17 g, oral, Daily PRN, Tiffanie Mendez, ETHNOARCHAEOLOGY PROFESSOR-STORE CUSTODIAN thiamine (Vitamin B1) injection 100 mg, 100 mg, intravenous, Daily, Kurt Nguyen MD, 100 mg at 03/18/23 0811 Dietary Orders (From admission, onward) Start Ordered 03/16/23 1508 NPO Diet; Effective now Diet effective now 03/16/23 1509 Estimated Needs: Estimated Energy Needs Total Energy Estimated Needs (kCal): (8020-6868 kcals) Total Estimated Energy Need per Day (kCal/kg): (25-30 kcals/kg) Method for Estimating Needs: adjusted IBW Estimated Protein Needs Total Protein Estimated Needs (g): (68-81g Protein) Total Protein Estimated Needs (g/kg): (1-1.2 g/kg) Method for Estimating Needs: adjusted IBW Estimated Fluid Needs Total Fluid Estimated Needs (mL): (0848-9628 mL fluid) Method for Estimating Needs: 1 [...] Prescription: Individualized Nutrition Prescription Provided for : 6771-2425 kcals, 68-81g Protein, 6727-5013 mL fluid, provided via PO/NG, once diet advanced. Nutrition Interventions: Food and/or Nutrient Delivery Interventions Interventions: Enteral intake Enteral Intake: Modify composition of enteral nutrition, Modify rate of enteral nutrition Goal: When able to initiate Tube feeding, recommend Osmolite 1.5 @ goal rate of 45 mL/hr to [id number] kcals, 68g Protein, and 823 mL free [...] Needed?: 3-5 days Follow up Comment: 03/22/23 [facility] Consult note* Nabila Moore RDN, LD - [...] Nightly, JORGITO Judd CNP, 15 mg at 03/17/231955 morphine injection 2 mg, 2 mg, intravenous, q4h PRN, JAMA Smith, 2 mg at 03/18/23 140 ondansetron (Zofran) [...] Energy Needs Total Energy Estimated Needs (kCal): (5177-8635 kcals) Total Estimated Energy Need per Day (kCal/kg): (25-30 kcals/kg) Method for Estimating Needs: adjusted IBW Estimated Protein Needs Total Protein Estimated Needs (g): (68-81g Protein) Total Protein Estimated Needs (g/kg): (1-1.2 g/kg) Method for Estimating Needs: adjusted IBW Estimated Fluid Needs Total Fluid Estimated Needs (mL): (7847-9523 mL fluid) Method for Estimating Needs: 1 [...] Prescription: Individualized Nutrition Prescription Provided for : 0840-9953 kcals, 68-81g Protein, 0147-0388 mL fluid, provided via PO/NG, once diet advanced. Nutrition Interventions: Food and/or Nutrient Delivery Interventions Interventions: Enteral intake Enteral Intake: Modify composition of enteral nutrition, Modify rate of enteral nutrition Goal: When able to initiate Tube feeding, recommend Osmolite 1.5 @ goal rate of 45 mL/hr to [id number] kcals, 68g Protein, and 823 mL free [...] with liver biopsy in April 2020 at [facility] in evaluation of her chronic abdominal pain and intermittent food intolerance. She had a vertical sleeve gastrectomy at [facility] on September 03, 2020 for morbid obesity. She had a diagnostic laparoscopy on March 20, 2021 at [facility] for chronic pain thought to be secondary to an abdominal wall hernia. No hernia was seen at laparoscopy. She complained of gastroesophageal reflux disease and had her vertical sleeve gastrectomy converted to Tan-en-Y gastric bypass at [facility] on January 29, 2022. On March 06, 2022 she had an upper endoscopy at [facility] for epigastric abdominal pain. Her gastrojejunostomy was congested, edematous, with erosions and friable mucosa. The anastomosis was dilated and she was discharged on twice daily PPI. She had an upper endoscopy at [facility] onJune 23, 2022 for epigastric pain. At that time her gastrojejunostomy appeared normal. She continued to complain of abdominal pain and had an upper endoscopy at the [facility] on October 27, 2022. She was found to have food in her stomach and jejunum. There was no evidence of gastrojejunal ulcer. On November 11, 2022 she had laparoscopic closure of internal hernia at the jejunojejunostomy and ERCP through her gastric remnant for her abdominal pain. She was hospitalized at the [facility] on December 06, 2022 for abdominal pain. [...] by laparotomy on March 05, 2023 at [facility]. She was discharged to home on March [...] medical history of MARSHAL (acute kidney injury) ([facility]), Autoimmune disorder ([facility]), Bipolar disorder ([facility]/HCC), BPH (benign prostatic hyperplasia), Cerebral aneurysm, Cervical cancer ([facility]/HCC), Cervical disc disease, Chronic kidney disease, CKD (chronic kidney disease), Cognitivedecline, Crohn's disease ([facility]/HCC), Dementia ([facility]/HCC), Dysphagia, Endometrial cancer ([facility]/HCC), Esophageal cancer ([facility]/HCC), Esophageal disease, ESRD (end stage renal disease) ([facility]), Fibromyalgia, primary, Fractures, Gastric cancer ([facility]/HCC), Gender dysphoria, GI (gastrointestinal bleed), Hemodialysis status ([facility]), Hernia, internal, History of peritoneal dialysis, HIV disease ([facility]/HCC), Immunocompromised ([facility]/HCC), Liver disease, Lumbar disc disease, Mastocytosis, MS (multiple sclerosis) ([facility]), Muscular dystrophy ([facility]/HCC), Myasthenia gravis ([facility]/HCC), Neuromuscular disorder ([facility]/HCC), Ovarian cancer ([facility]/HCC), Pancreatitis, Peptic ulcer disease, Prematurity, PTSD (post-traumatic stress disorder), Schizophrenia ([facility]), Seizure disorder ([facility]/HCC), Spinal stenosis, Substanceaddiction ([facility]/HCC), Syncope, TIA (transient ischemic attack), Ulcerative colitis [...] Diabetes Mother Jessica Artino Hypertension Mother Jessica Jeterino Cancer Maternal Grandfather Cedrick Kraus COPD Maternal Grandfather Cedrick Kraus Heart disease Maternal Grandfather Cedrick Kraus Kidney disease Maternal Grandfather Cedrick Kraus Hypertension Maternal Grandmother Grandpa Anesthesia problems Paternal Grandfather Elan Artino Arthritis Paternal Grandfather Elan Artino Hypertension Paternal Grandfather Elan Artino Anesthesia related problems Paternal Grandfather Elan Artino COPD Paternal Grandmother Grandmother Diabetes Paternal Grandmother Grandmother Asthma Brother Adán Phipps Allergies Codeine and Nsaids (non-steroidal anti-inflammatory drug) [...] INDICATION: Signs/Symptoms:abdominal pain. COMPARISON: None. ACCESSION NUMBER(S): [id number] ORDERING CLINICIAN: TIFFANIE MENDEZ TECHNIQUE: Multiple fluoroscopic spot images were obtained during a single contrast upper GI with KUB. Total fluoroscopy time: 1 minute 32 seconds Radiation exposure (Reference Air Kerma): 99.36 mGy Images: 2 spot images 7 series and 2 delayed AP views of the abdomen FINDINGS: Cephalometric Technician images demonstrate postsurgical changes from previous Tan-en-Y [...] Corie Garza 03/17/2023 5:00 PM Dictation workstation: [id number] Latest Reference Range & Units 03/17/23 07:04 [...] and recommendations. Kurt Matos MD * Cheyenne Mercedes Jansen, ETHNOARCHAEOLOGY PROFESSOR-STORE CUSTODIAN - 03/17/2023 10:29 AM EST Consults Reason For Consult NV History Of Present Illness Abbey Garcia is a 32 y.o. female presenting with abdominal pain, nausea, vomiting. Patient has past medical history of gastric bypass that was revised with gastric sleeve. She also has a history of median arcuate ligament release with vascular surgery 03/05/2023, KATHY. This was completed per Dr Magaña. Following [...] disease (CMS/HCC), Dementia (CMS/HCC), Dysphagia, Endometrial cancer ([facility]/HCC), Esophageal cancer ([facility]/HCC), Esophageal disease, ESRD (end stage renal disease) ([facility]/HCC), Fibromyalgia, primary, Fractures, Gastric cancer (CMS/HCC), Gender dysphoria, GI (gastrointestinal bleed), Hemodialysis status ([facility]/HCC), Hernia, internal, History of peritoneal dialysis, HIV disease ([facility]/HCC), Immunocompromised ([facility]/HCC), Liver disease, Lumbar disc disease, Mastocytosis, MS (multiple sclerosis) ([facility]/HCC), Muscular dystrophy ([facility]/HCC), Myasthenia gravis ([facility]/HCC), Neuromuscular disorder ([facility]/HCC), Ovarian cancer ([facility]/HCC), Pancreatitis, Peptic ulcer disease, Prematurity, PTSD (post-traumatic stress disorder), Schizophrenia ([facility]/HCC), Seizure disorder ([facility]/HCC), Spinal stenosis, Substanceaddiction ([facility]/HCC), Syncope, TIA (transient ischemic attack), Ulcerative colitis ([facility]/HCC), Urinary tract infection, Uterine cancer ([facility]/HCC), or Vertigo. Surgical History She has a [...] and IV contrast. COMPARISON: None.. ACCESSION NUMBER(S): [id number] ORDERING CLINICIAN: TIFFANIE MENDEZ TECHNIQUE: Oral contrast [...] Corie Garza 03/16/2023 5:46 PM Dictation workstation: [id number] XR chest 1 view Result Date: 03/06/2023 Interpreted By: Sara Zarate, STUDY: XR CHEST 1 VIEW; 03/06/2023 7:32 am INDICATION: Signs/Symptoms:post op COMPARISON: None ACCESSION NUMBER(S): [id number] ORDERING CLINICIAN: JASON FOSTER TECHNIQUE: Frontal and [...] Sara Zarate 03/06/2023 1:48 PM Dictation workstation: [id number] XR chest 1 view Result Date: 03/05/2023 Interpreted By: Baldomero Hendrickson, STUDY: XR CHEST 1 VIEW; 03/05/2023 3:11 pm INDICATION: CLINICAL INFORMATION: Signs/Symptoms:NG tube placement confirmation. COMPARISON: 03/05/2019 at 745 hours ACCESSION NUMBER(S): [id number] ORDERING CLINICIAN: DESMOND TIRADO TECHNIQUE: Portable chest [...] Baldomero Hendrickson 03/05/2023 3:31 PM Dictation workstation: [id number] XR chest 1 view Result Date: 03/05/2023 Interpreted By: Nya Ahmadi, STUDY: XR CHEST 1 VIEW 03/05/2023 7:51 am INDICATION: Signs/Symptoms:confirm line placement COMPARISON: None available. ACCESSION NUMBER(S): [id number] ORDERING CLINICIAN: SERENA GEORGE TECHNIQUE: AP erect view of the chest FINDINGS: Right arm PICC line terminates in the SVC. There is no pneumothorax. The heart, mediastinum, and lungs are normally visualized. Right arm PICC line terminating in SVC without pneumothorax. No acute cardiopulmonary disease. Signed by: Nya Ahmadi 03/05/2023 7:54 AM Dictation workstation: [id number] Assessment/Plan NV, Epigastric Pain (LFTs are normal. [...] and plan. Labs reviewed. Note from Dr. Jah Caceres reviewed later. 32-year-old with complicated past medical history including multiple abdominal surgeries. At this time her nausea seems to be improving. Agree with symptomatic treatment and if not better proceed with EGD in the presence of Dr. Jah Nguyen. * Lizz Brunson APRN-BETH - 03/16/2023 5:09 PM EST Consults Reason For Consult Medical management History Of Present Illness Abbey Garcia is a 32 y.o. female presenting with abdominal pain. 32-year-old female presents to [facility] for chief complaint of abdominal pain, nausea. [...] emergency room close to her home near [place], [place] for further evaluation and was promptly transferred to [facility] for further evaluation and treatment. The hospitalist [...] CKD (chronic kidney disease), Cognitivedecline, Crohn's disease ([facility]/HCC), Dementia ([facility]/HCC), Dysphagia, Endometrial cancer (CMS/HCC), Esophageal cancer (CMS/HCC), Esophageal disease, ESRD (end stage renal disease) ([facility]/HCC), Fibromyalgia, primary, Fractures, Gastric cancer (CMS/HCC), Gender dysphoria, GI (gastrointestinal bleed), Hemodialysis status ([facility]/HCC), Hernia, internal, History of peritoneal dialysis, HIV disease (CMS/HCC), Immunocompromised ([facility]/HCC), Liver disease, Lumbar disc disease, Mastocytosis, MS (multiple sclerosis) ([facility]/HCC), Muscular dystrophy ([facility]/HCC), Myasthenia gravis ([facility]/HCC), Neuromuscular disorder ([facility]/HCC), Ovarian cancer (CMS/HCC), Pancreatitis, Peptic ulcer disease, [...] Diabetes Mother Jessica Phipps Hypertension Mother Jessica Phipps Cancer Maternal Grandfather Cedrick Kraus COPD Maternal [...] to follow. JAMA Smith [facility] Work [facility]: 1(358) 731-239602-01-2024 Plan of care note* Care Plan - Andie Lugo RN - 03/18/2023 11:05 AM EST The patient's goals for the shift include Free from pain The clinical goals for the shift include decrease nausea [facility] Work Phone: 1(360) 970-441602-01-2024 Nurse Note* Andie Lugo RN - 03/18/2023 7:27 AM EST Assumed care of pt, pt resting quietly in bed, ng to liws , will monitor [facility] Work Phone: [phone] Plan of care note* Care Plan - Nathalie Campos RN - 03/17/2023 10:17 PM EST [...] pain meds throughout the shift Outcome: Progressing [facility] Work Phone: [phone]) 575-757501-31-2024 Consult note* Kurt Matos MD - 03/17/2023 [...] with liver biopsy in April 2020 at [facility] in evaluation of her chronic abdominal pain and intermittent food intolerance. She had a vertical sleeve gastrectomy at [facility] on September 03, 2020 for morbid obesity. She had a diagnostic laparoscopy on March 20, 2021 at [facility] for chronic pain thought to be secondary to an abdominal wall hernia. No hernia was seen at laparoscopy. She complained of gastroesophageal reflux disease and had her vertical sleeve gastrectomy converted to Tan-en-Y gastric bypass at [facility] on January 29, 2022. On March 06, 2022 she had an upper endoscopy at [facility] for epigastric abdominal pain. Her gastrojejunostomy was congested, edematous, with erosions and friable mucosa. The anastomosis was dilated and she was discharged on twice daily PPI. She had an upper endoscopy at [facility] onJune 23, 2022 for epigastric pain. At that time her gastrojejunostomy appeared normal. She continued to complain of abdominal pain and had an upper endoscopy at the [facility] on October 27, 2022. She was found to have food in her stomach and jejunum. There was no evidence of gastrojejunal ulcer. On November 11, 2022 she had laparoscopic closure of internal hernia at the jejunojejunostomy and ERCP through her gastric remnant for her abdominal pain. She was hospitalized at the [facility] on December 06, 2022 for abdominal pain. [...] by laparotomy on March 05, 2023 at [facility]. She was discharged to home on March [...] kidney disease), Cognitivedecline, Crohn's disease (CMS/HCC), Dementia ([facility]/HCC), Dysphagia, Endometrial cancer (CMS/HCC), Esophageal cancer ([facility]/HCC), Esophageal disease, ESRD (end stage renal disease) ([facility]/HCC), Fibromyalgia, primary, Fractures, Gastric cancer ([facility]/HCC), Gender dysphoria, GI (gastrointestinal bleed), Hemodialysis status ([facility]/HCC), Hernia, internal, History of peritoneal dialysis, HIV disease ([facility]/HCC), Immunocompromised ([facility]/HCC), Liver disease, Lumbar disc disease, Mastocytosis, MS (multiple sclerosis) ([facility]/HCC), Muscular dystrophy ([facility]/HCC), Myasthenia gravis ([facility]/HCC), Neuromuscular disorder ([facility]/HCC), Ovarian cancer ([facility]/HCC), Pancreatitis, Peptic ulcer disease, Prematurity, PTSD (post-traumatic stress disorder), Schizophrenia ([facility]/HCC), Seizure disorder ([facility]/HCC), Spinal stenosis, Substanceaddiction ([facility]/HCC), Syncope, TIA (transient ischemic attack), Ulcerative colitis ([facility]/HCC), Urinary tract infection, Uterine cancer ([facility]/HCC), or Vertigo. Surgical History She has a [...] Grandmother Grandmother Asthma Brother Adán Phipps Allergies Codeine and Nsaids (non-steroidal anti-inflammatory drug) [...] INDICATION: Signs/Symptoms:abdominal pain. COMPARISON: None. ACCESSION NUMBER(S): [id number] ORDERING CLINICIAN: TIFFANIE MENDEZ TECHNIQUE: Multiple fluoroscopic spot images were obtained during a single contrast upper GI with KUB. Total fluoroscopy time: 1 minute 32 seconds Radiation exposure (Reference Air Kerma): 99.36 mGy Images: 2 spot images 7 series and 2 delayed AP views of the abdomen FINDINGS: Cephalometric Technician images demonstrate postsurgical changes from previous Tan-en-Y [...] Corie Garza 03/17/2023 5:00 PM Dictation workstation: [id number] Latest Reference Range & Units 03/17/23 07:04 [...] my evaluation and recommendations. Kurt Matos MD [facility] Work Phone: 1(470) 196-885601-31-2024 Nurse Note* Cathy Madera RN - 03/17/2023 6:05 PM EST NG tube re inserted per order. Patient tolerated well. No complications. This nurse requested orderfor xray for placement of NG tube. Order received. Waiting on agricultural technician to verify placement per order. Will continue to monitor patient to ensure patient safety. [facility] Work Phone: [phone] Plan of care note* Care Plan - [...] pain control, maintain and ensure patient safety. [facility] Work Phone: [phone]) [phone] Nurse Note* Cathy Madera RN - 03/17/2023 [...] per to re insert NG tube and logging crew supervisor to low suction. Will re attempt with patients consent. [facility] Work Phone: [phone]) 484-383601-31-2024 Nurse Note* Cathy Madera RN - 03/17/2023 12:06 PM EST Patient transported to Xray for placement of NG. Patient off unit. [facility] Work Phone: [phone]) 111-406401-31-2024 Nurse Note* Cathy Madera RN - 03/17/2023 11:44 AM EST This nurse notified wheel alignment technician that patient had NG tube placed and needed Xray for placement verification. This nurse messaged Rosa YUN to notify her that NG tube was placed and needed separate order for NG tube placement per wheel alignment technician. Order received. Will continue to monitor patient to ensure patient safety. [facility] Work Phone: [phone]) 465-122401-31-2024 History and physical note* JAMA Judd - 03/17/2023 11:03 AM EST History Of Present Illness This is a 32-year-old female with past medical history of chronic abdominal pain, PCOS, PUD, depression, GERD, IBS, obesity (status post laparoscopic sleeve gastrectomy in August [address] Ku [id number] gastric bypass 01/29/[address] Kat) and [...] her local hospital and was transferred to [facility] per Dr. Magaña's request. Patient has [...] GI and are planning to consult Dr. Jah Nguyen for further evaluation. WBC 5.0 on [...] and IV contrast. COMPARISON: None.. ACCESSION NUMBER(S): [id number] ORDERING CLINICIAN: TIFFANIE MENDEZ TECHNIQUE: Oral contrast [...] Corie Garza 03/16/2023 5:46 PM Dictation workstation: [id number] XR chest 1 view Result Date: 03/06/2023 Interpreted By: Sara Zarate, STUDY: XR CHEST 1 VIEW; 03/06/2023 7:32 am INDICATION: Signs/Symptoms:post op COMPARISON: None ACCESSION NUMBER(S): [id number] ORDERING CLINICIAN: JASON FOSTER TECHNIQUE: Frontal and [...] Sara Zarate 03/06/2023 1:48 PM Dictation workstation: [id number] XR chest 1 view Result Date: 03/05/2023 Interpreted By: Baldomero Hendrickson, STUDY: XR CHEST 1 VIEW; 03/05/2023 3:11 pm INDICATION: CLINICAL INFORMATION: Signs/Symptoms:NG tube placement confirmation. COMPARISON: 03/05/2019 at 745 hours ACCESSION NUMBER(S): [id number] ORDERING CLINICIAN: DESMOND TIRADO TECHNIQUE: Portable chest [...] Baldomero Hendrickson 03/05/2023 3:31 PM Dictation workstation: [id number] XR chest 1 view Result Date: 03/05/2023 Interpreted By: Nya Ahmadi, STUDY: XR CHEST 1 VIEW 03/05/2023 7:51 am INDICATION: Signs/Symptoms:confirm line placement COMPARISON: None available. ACCESSION NUMBER(S): [id number] ORDERING CLINICIAN: SERENA GEORGE TECHNIQUE: AP erect view of the chest FINDINGS: Right arm PICC line terminates in the SVC. There is no pneumothorax. The heart, mediastinum, and lungs are normally visualized. Right arm PICC line terminating in SVC without pneumothorax. No acute cardiopulmonary disease. Signed by: Nya Ahmadi 03/05/2023 7:54 AM Dictation workstation: [id number] Assessment and Plan -Abdominal pain/nausea -Median arcuate [...] symptoms do not improve. - Consult Dr. Jah Nguyen for further evaluation and input -Hospitalist on consult for medical comanagement Asthma: Continue home medications Hypothyroidism: On Synthroid and Cytomel Anemia: Continue home iron supplementation GERD: Continue Pepcid [facility] Work Phone: [phone]) [phone] History and physical note* JAMA Judd - 03/17/2023 11:03 AM EST History Of Present Illness This is a 32-year-old female with past medical history of chronic abdominal pain, PCOS, PUD, depression, GERD, IBS, obesity (status post laparoscopic sleeve gastrectomy in August [address] Ku zjgYnnn-od-W gastric bypass 01/29/[address] Kat) and median arcuate ligament syndrome who presented to the emergency department for further evaluation of epigastric abdominal pain and nausea. Pat[place]ia nt follows with GI and has previously [...] her local hospital and was transferred to [facility] per Dr. Magaña's request. Patient has [...] GI and are planning to consult Dr. Jah Nguyen for further evaluation. WBC 5.0 on [...] Grandmother Diabetes Paternal Grandmother Grandmother Asthma Brother Daán Moise Allergies Allergies Allergen Reactions Codeine Nausea/vomiting Nsaids [...] and IV contrast. COMPARISON: None.. ACCESSION NUMBER(S): [id number] ORDERING CLINICIAN: TIFFANIE MENDEZ TECHNIQUE: Oral contrast [...] Corie Garza 03/16/2023 5:46 PM Dictation workstation: [id number] XR chest 1 view Result Date: 03/06/2023 Interpreted By: Sara Zarate, STUDY: XR CHEST 1 VIEW; 03/06/2023 7:32 am INDICATION: Signs/Symptoms:post op COMPARISON: None ACCESSION NUMBER(S): [id number] ORDERING CLINICIAN: JASON FOSTER TECHNIQUE: Frontal and [...] Sara Zarate 03/06/2023 1:48 PM Dictation workstation: [id number] XR chest 1 view Result Date: 03/05/2023 Interpreted By: Baldomero Hendrickson, STUDY: XR CHEST 1 VIEW; 03/05/2023 3:11 pm INDICATION: CLINICAL INFORMATION: Signs/Symptoms:NG tube placement confirmation. COMPARISON: 03/05/2019 at 745 hours ACCESSION NUMBER(S): [id number] ORDERING CLINICIAN: DESMOND TIRADO TECHNIQUE: Portable chest [...] Baldomero Hendrickson 03/05/2023 3:31 PM Dictation workstation: [id number] XR chest 1 view Result Date: 03/05/2023 Interpreted By: Nya Ahmadi, STUDY: XR CHEST 1 VIEW 03/05/2023 7:51 am INDICATION: Signs/Symptoms:confirm line placement COMPARISON: None available. ACCESSION NUMBER(S): [id number] ORDERING CLINICIAN: SERENA GEORGE TECHNIQUE: AP erect view of the chest FINDINGS: Right arm PICC line terminates in the SVC. There is no pneumothorax. The heart, mediastinum, and lungs are normally visualized. Right arm PICC line terminating in SVC without pneumothorax. No acute cardiopulmonary disease. Signed by: Nya Ahmadi 03/05/2023 7:54 AM Dictation workstation: [id number] Assessment and Plan -Abdominal pain/nausea -Median arcuate [...] symptoms do not improve. - Consult Dr. Jah Nguyen for further evaluation and input -Hospitalist on consult for medical comanagement Asthma: Continue home medications Hypothyroidism: On Synthroid and Cytomel Anemia: Continue home iron supplementation GERD: Continue Pepcid [facility] Work Phone: [phone]) [phone] Nurse Note* Cathy Madera RN - 03/17/2023 10:58 AM EST Patient is ordered NPO this nurse received verbal orders with readback to administer oral medication per Rosa YUN at bedside. Will continue to monitor patient to ensure patient safety. [facility] Work Phone: [phone] Nurse Note* Cathy Madera RN - 03/17/2023 [...] to monitor patient to ensure patient safety. [facility] Work Phone: [phone]) [phone] Consult note* Cheyenne Jansen, JAMA - 03/17/2023 10:29 AM EST Consults Reason For Consult NV History Of Present Illness Abbey Garcia is a 32 y.o. female presenting with abdominal pain, nausea, vomiting. Patient has past medical history of gastric bypass that was revised with gastric sleeve. She also has a history of median arcuate ligament release with vascular surgery 03/05/2023, KATHY. This was completed per Dr Magaña. Following [...] Gender dysphoria, GI (gastrointestinal bleed), Hemodialysis status ([facility]/HCC), Hernia, internal, History of peritoneal dialysis, HIV disease (CMS/HCC), Immunocompromised (CMS/HCC), Liver disease, Lumbar disc disease, Mastocytosis, MS (multiple sclerosis) (CMS/HCC), Muscular dystrophy (CMS/HCC), Myasthenia gravis (CMS/HCC), Neuromuscular disorder (CMS/HCC), Ovarian cancer (CMS/HCC), Pancreatitis, Peptic ulcer disease, Prematurity, PTSD (post-traumatic stress disorder), Schizophrenia (CMS/HCC), Seizure disorder ([facility]/HCC), Spinal stenosis, Substanceaddiction ([facility]/HCC), Syncope, TIA (transient ischemic attack), Ulcerative colitis ([facility]/HCC), Urinary tract infection, Uterine cancer ([facility]/HCC), or Vertigo. Surgical History She has a [...] Grandfather Cedrick Kraus COPD Maternal Grandfather Cedrick Krasu Heart disease Maternal Grandfather Cedrick Kraus Kidney [...] and IV contrast. COMPARISON: None.. ACCESSION NUMBER(S): [id number] ORDERING CLINICIAN: TIFFANIE MENDEZ TECHNIQUE: Oral contrast [...] Corie Garza 03/16/2023 5:46 PM Dictation workstation: [id number] XR chest 1 view Result Date: 03/06/2023 Interpreted By: Sara Zarate, STUDY: XR CHEST 1 VIEW; 03/06/2023 7:32 am INDICATION: Signs/Symptoms:post op COMPARISON: None ACCESSION NUMBER(S): [id number] ORDERING CLINICIAN: JASON FOSTER TECHNIQUE: Frontal and [...] Sara Zarate 03/06/2023 1:48 PM Dictation workstation: [id number] XR chest 1 view Result Date: 03/05/2023 Interpreted By: Baldomero Hendrickson, STUDY: XR CHEST 1 VIEW; 03/05/2023 3:11 pm INDICATION: CLINICAL INFORMATION: Signs/Symptoms:NG tube placement confirmation. COMPARISON: 03/05/2019 at 745 hours ACCESSION NUMBER(S): [id number] ORDERING CLINICIAN: DESMOND TIRADO TECHNIQUE: Portable chest [...] Baldomero [place] 03/05/2023 3:31 PM Dictation workstation: [id number] XR chest 1 view Result Date: 03/05/2023 Interpreted By: Nya Ahmadi, STUDY: XR CHEST 1 VIEW 03/05/2023 7:51 am INDICATION: Signs/Symptoms:confirm line placement COMPARISON: None available. ACCESSION NUMBER(S): [id number] ORDERING CLINICIAN: SERENA GEORGE TECHNIQUE: AP erect view of the chest FINDINGS: Right arm PICC line terminates in the SVC. There is no pneumothorax. The heart, mediastinum, and lungs are normally visualized. Right arm PICC line terminating in SVC without pneumothorax. No acute cardiopulmonary disease. Signed by: Nya Ahmadi 03/05/2023 7:54 AM Dictation workstation: [id number] Assessment/Plan NV, Epigastric Pain (LFTs are normal. [...] and plan. Labs reviewed. Note from Dr. Jah Caceres reviewed later. 32-year-old with complicated past medical history including multiple abdominal surgeries. At this time her nausea seems to be improving. Agree with symptomatic treatment and if not better proceed with EGD in the presence of Dr. Jah Nguyen. [facility] Work Phone: 1([phone]) 548-544601-31-2024 Nurse Note* Cathy Madera RN - 03/17/2023 [...] to monitor patient to ensure patient safety. [facility] Work Phone: 1([phone]) 863-571401-30-2024 Consult note* Lizzlesia Brunson, ETHNOARCHAEOLOGY PROFESSOR-STORE CUSTODIAN - 03/16/2023 5:09 PM EST Consults Reason For Consult Medical management History Of Present Illness Abbey Garcia is a 32 y.o. female presenting with abdominal pain. 32-year-old female presents to [facility] for chief complaint of abdominal pain, nausea. [...] emergency room close to her home near [place], [place] for further evaluation and was promptly transferred to [facility] for further evaluation and treatment. The hospitalist [...] CKD (chronic kidney disease), Cognitivedecline, Crohn's disease ([facility]), Dementia ([facility]/HCC), Dysphagia, Endometrial cancer ([facility]/HCC), Esophageal cancer ([facility]/HCC), Esophageal disease, ESRD (end stage renal disease) ([facility]/HCC), Fibromyalgia, primary, Fractures, Gastric cancer (CMS/HCC), Gender dysphoria, GI (gastrointestinal bleed), Hemodialysis status ([facility]/HCC), Hernia, internal, History of peritoneal dialysis, HIV disease ([facility]/HCC), Immunocompromised ([facility]/HCC), Liver disease, Lumbar disc disease, Mastocytosis, MS (multiple sclerosis) ([facility]/HCC), Muscular dystrophy ([facility]/HCC), Myasthenia gravis ([facility]/HCC), Neuromuscular disorder ([facility]/HCC), Ovarian cancer ([facility]/HCC), Pancreatitis, Peptic ulcer disease, Prematurity, PTSD (post-traumatic stress disorder), Schizophrenia ([facility]/HCC), Seizure disorder ([facility]/HCC), Spinal stenosis, Substanceaddiction ([facility]/HCC), Syncope, TIA (transient ischemic attack), Ulcerative colitis ([facility]/HCC), Urinary tract infection, Uterine cancer ([facility]), or Vertigo. Surgical History She has a [...] Paternal Grandfather Elan Artino Hypertension Paternal Grandfather Elna Artino Anesthesia related problems Paternal Grandfather Elan [...] consult. Will continue to follow. JAMA Smith [facility] Work Phone: 1(348) 107-842401-30-2024 Emergency department Note* Grecia Oates RN - 03/16/2023 5:00 PM EST Pt is requesting pain medication. MD Barker notified. Grecia Oates RN 03/16/23 170 [facility] Work Phone: 1([phone]) 504-410901-30-2024 Emergency department Note* Grecia Oates RN - 03/16/2023 5:00 PM EST Pt is requesting pain medication. MD Barker notified. Grecia Oates RN 03/16/23 170 * Grecia Oates RN - 03/16/2023 3:54 PM EST Pt has not been able to sustain orthostatic VS. She is not able to stand at this time. Grecia Oates RN 03/16/23 6861 * Grecia Oates RN - 03/16/2023 1:46 PM EST Pt arrived from [place] due to abdominal pain due to celiac [...] dictation software, please excuse any errors in legal intern. Melisa Barker MD 03/16/231919 * HENNY Miller-C - 03/16/2023 1:37 PM EST HPI Chief Complaint Patient presents with Abdominal Pain Patient is a 32-year-old female history of gastric bypass surgery, median arcuate ligament syndromewith vascular surgery performed on March 05 transferred to [facility] from [facility] in [place] for abdominal pain and nausea vomiting. Patient states the abdominal pain is mid abdominal, no signs of surgical scar infection, states she has been unable to tolerate p.o. intake for 2 days now. She states she feels a burning cramping sensation around where her gastric pouch was placed. ER spoke with Dr. Magaña vascular surgeon who requested for patient to be sent to [facility] for further evaluation. 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 Please excuse any errors of legal intern. My thought process and reason for plan [...] from: Patient, EMS, attending ER physician at [facility] Social Determinants of Health considered during this [...] 5 mg (5 mg intravenous Given 03/16/23 7315) Diagnostic/tests Labs Reviewed CBC WITH AUTO DIFFERENTIAL [...] has been validated for use at [facility]. Negative results do not preclude COVID-19 infections or Influenza A/B infections, and should not be used as the sole basis for diagnosis, treatment, or other management decisions. If Influenza A/B and RSV PCR results are negative, testing for Parainfluenza virus, Adenovirus and Metapneumovirus is routinely performed for [facility] pediatric oncology and intensive care inpatients, and [...] Dr. Magaña transferred ER to ER from [place] for further evaluation of her abdominal pain [...] BLEEDING. Procedure Procedures Leatha Paul PA-C 03/16/23 7695 * Linda Ngo RN - 03/16/2023 1:37 [...] Ngo RN 03/17/23 0826 documented in this [facility] Work Phone: 1(273) 685-586301-30-2024 Emergency department Note* Grecia Oates RN - 03/16/2023 3:54 PM EST Pt has not been able to sustain orthostatic VS. She is not able to stand at this time. Grecia Oates RN 03/16/23 0123 [facility] Work Phone: [phone] 426-717501-30-2024 Note* Significant Event - Channing Zita Elvin, - 03/16/2023 3:02 PM EST Called to admit this patient for abdominal pain. Going to review, this patient has a ongoing history since 2019 of abdominal pain with considerable notes from [facility], and has a history gastric bypass, cholecystectomy, sphincterectomy, and recent median arcuate ligament release on March 05 with vascular surgery. Patient [place] [facility] [place] [facility] [place] [place] and sent home, again [...] issue which will be best done at [facility] either as inpatient or outpatient, where she has ongoing work, or is a postoperative situation that has been discussed multiple times with the primary operating service (and I have discussed with Tiffanie Mendez CNP with their service and there appears to be a good plan for imaging studies), and can ba admitted by their service). [facility] Work Phone: [phone] Evaluation + Plan noteExtracted from: Title:ED Note [...] Date:08/04/2023 09:45:00 AM Scheduled Provider:Rajni Rouse MD Location:[facility] Appointment Type:URO Office Visit Future Scheduled Tests Radiology* US Renal 06/10/22 [facility]01-30-2024 Emergency department Triage note* Grecia Oates RN - 03/16/2023 1:46 PM EST Pt arrived from [place] due to abdominal pain due to celiac rupture. She [place] be here for vascular surgery? Pt is A&O x3. States terrible pain in abdomen that doesn't go away. C/O nausea, vomiting, headaches, body chills. [facility] Work Phone: 1([phone]) 964-391901-30-2024 Emergency department Note* Linda Ngo RN - 03/16/2023 1:37 PM EST Into assess patient. Patient awake and A&OX4. Patient complains of incisional pain and requested Percocet for relief, rates pain 7/10. Assessed incisional wound on abdomen, incision well approximated, dry and scabbed, no drainage noted. Patient admits to surgery On 03/05/23 for MALS. Medicated with percocet as requested. Linda Ngo RN 03/17/23 08 [facility]01-30-2024 Emergency department Note* Linda Ngo RN - 03/16/2023 1:37 PM EST Report called to DEE Ortiz updated on patient's status. Linda Ngo RN 03/17/23825 [facility] Work Phone: [phone] 564-419901-30-2024 Physician Emergency department Note* Melisa Barker MD [...] dictation software, please excuse any errors in legal intern. Melisa Barker MD 03/16/231919 [facility] Work Phone: [phone] 532-415101-30-2024 Physician Emergency department Note* Leatha Paul PA-C - 03/16/2023 1:37 PM EST HPI Chief Complaint Patient presents with Abdominal Pain Patient is a 32-year-old female history of gastric bypass surgery, median arcuate ligament syndromewith vascular surgery performed on March 05 transferred to [facility] from [facility] in [place] for abdominal pain and nausea vomiting. Patient states the abdominal pain is mid abdominal, no signs of surgical scar infection, states she has been unable to tolerate p.o. intake for 2 days now. She states she feels a burning cramping sensation around where her gastric pouch was placed. ER spoke with Dr. Magaña vascular surgeon who requested for patient to be sent to [facility] for further evaluation. 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 Please excuse any errors of legal intern. My thought process and reason for plan [...] from: Patient, EMS, attending ER physician at [facility] Social Determinants of Health considered during this [...] 5 mg (5 mg intravenous Given 03/16/23 1438) Diagnostic/tests Labs Reviewed CBC WITH AUTO DIFFERENTIAL [...] has been validated for use at [facility]. Negative results do not preclude COVID-19 infections or Influenza A/B infections, and should not be used as the sole basis for diagnosis, treatment, or other management decisions. If Influenza A/B and RSV PCR results are negative, testing for Parainfluenza virus, Adenovirus and Metapneumovirus is routinely performed for [facility] pediatric oncology and intensive care inpatients, and [...] Dr. Magaña transferred ER to ER from [place] for further evaluation of her abdominal pain [...] Procedure Procedures Leatha Paul PA-C 03/16/23 1643 [facility] Work Phone: 1(100) 590-612401-29-2024 Hospital Discharge instructions Patient Education 03/15/2023 18:18:58 [...] Follow these instructions at home: Medicines Take bqzc-lnv-trmwqur and prescription medicines only as told by [...] Watch your condition for any changes. Take ufsf-lww-qhhrfwx and prescription medicines only as told by [...] provider. Document Revised: 03/22/2020 Document Reviewed: 06/12/2019 [email or web address] Patient Education 2022 [employer]. Follow Up Care 03/15/2023 11:45:15 With:Your surgeon Dr. Magaña Address:Unknown When:03/16/2023 17:30:59 [facility]01-29-2024 Evaluation + Plan noteExtracted from: Title:ED [...] 2 mL, Injection, IV Push, Once, Stop 03/15/23 14:44:00 EST, STAT, Start date 03/15/23 14:44:00 EST, 03/15/23 14:44:00 EST ondansetron, 4 mg = 2 mL, Injection, IV Push, Once, Stop 03/15/23 12:08:00 EST, STAT, Start date 03/15/23 [...] 09:45:00 AM Scheduled Provider:Nasim JOHNSON, Rajni Ballesteros Location:[facility] Appointment Type:URO Office Visit Future Scheduled Tests Radiology* US Renal 06/10/22 [facility]01-24-2024 Hospital Discharge instructions* Discharge Instr - Diet* Yue German, RN - 03/10/2023 3:19 PM EST Regular Diet [facility]: [phone]) 548-186301-24-2024 History of Present illness Narrative* Keesha Jack - 03/10/2023 2:30 PM EST Spiritual Care Visit Clinical Encounter Type Visited With: Patient Routine Visit: Introduction Continue Visiting: No Values/Beliefs Spiritual Requests During Hospitalization: Blesssing. Going home today Sacramental Encounters Communion: Does not want communion Communion Given Indicator: No Sacrament of Sick-Anointing: Patient declined anointing Keesha Jack * Chantale Agrawal [facility] - 03/10/2023 1:58 PM EST Pt has been cleared by vascular. Update: Pt cleared for dc. Updates ent to [facility] who the pt has already been active with, F2F, dc summary and AVS sent via [employer], [facility] in 1-2 days. Pt ok to dc. 03/10/23 6349 Discharge Planning Patient expects to be discharged to: [facility] * Tiffanie Galvan Marysol, ETHNOARCHAEOLOGY PROFESSOR-STORE CUSTODIAN - 03/10/2023 11:32 AM EST Images from [...] for p.o. Valium and Percocet sent to [facility] pharmacy - Follow-up orders placed for 1 month virtual appoint with Dr. Magaña - Work note faxed to her work as well as uploaded into [employer] - Cleared for discharge from vascular standpoint. [...] LE Dressing: Yes LE Dressing Adaptive Equipment: Optometrist Assistant, Sock aide Pants Level of Assistance: Setup, [...] functional mobility a short household distance at [facility] for safety with close S. Pt demonstrating fair+/good standing balance with increased fatigue noted throughout task Outcome Measures:[facility] Daily Activity Putting on and taking off [...] via laparotomy (03/05). Spoke with RN and STORE CUSTODIAN regarding plans for consult. Theplan is for [...] diphenhydramine-zinc acetate cream, , Topical, TID PRN, Alicia Toro, ETHNOARCHAEOLOGY PROFESSOR-STORE CUSTODIAN enoxaparin (Lovenox) syringe 40 mg, 40 mg, [...] LE Dressing: Yes LE Dressing Adaptive Equipment: Optometrist Assistant, Sock aide Pants Level of Assistance: Setup, [...] advice provided to abside by precautions Outcome Measures:[facility] Daily Activity Putting on and taking off [...] tasks by discharge. Outcome: Progressing * Alicia Toro, ETHNOARCHAEOLOGY PROFESSOR-STORE CUSTODIAN - 03/09/2023 10:50 AM EST Abbey Garcia [...] INDICATION: Signs/Symptoms:post op COMPARISON: None ACCESSION NUMBER(S): [id number] ORDERING CLINICIAN: JASON FOSTER TECHNIQUE: Frontal and [...] Sara Zarate 03/06/2023 1:48 PM Dictation workstation: [id number] Physical Exam Constitutional: Appearance: Normal appearance. HENT: [...] steps, 1 rail, non-reciprocating pattern. Outcome Measures: [facility] Basic Mobility Turning from your back to [...] Expected End: 03/20/23 Resolved: 03/09/23 * Jason Foster, ETHNOARCHAEOLOGY PROFESSOR-STORE CUSTODIAN - 03/09/2023 10:24 AM EST Abbey Garcia [...] continue ambulating her room in the halls -Senna discontinued due to patient's diarrhea. -Continue [...] ILIANA Morrell - 03/09/2023 9:24 AM EST [facility] pt is already active with them and are able to continue to provide Rn for tpn and added PT. 03/09/23 0923 Discharge Planning Patient expects to be discharged to: [facility] * ILIANA Morrell - 03/08/2023 2:52 PM EST [facility]. Pt lives in a house with her and 3 kids in two story house with first floor setup. 5 steps to enter the house. Pt drives, works, independent for mobility. Pt wears glasses. Only other medical supplies at home are for TPN. Pts PCP is Dr Jaquan Morrow with [facility], prescriptions filled through [facility] in [place]. Discussion around dc planning needs with the pt stating she will probably benefit from home health PT. Referrals sent to homecare agencies that service where she lives, these agencies include [facility], [address], [facility], [facility], [facility], await responses. 03/08/23 3445 Discharge Planning Patient expects to be discharged to: Home with [facility] * Anam Khoury, PT - 03/08/2023 1:16 PM EST [...] Performed: Yes Therapeutic Exercise Activity 1: seated johanny AP/heel raises x 20 reps Therapeutic Exercise [...] prior to attempting to sit Outcome Measures: [facility] Basic Mobility Turning from your back to [...] (Progressing) Start: 03/06/23 Expected End: 03/20/23 * Carmen Chen, FLAQUITO - 03/08/2023 12:47 PM EST Occupational Therapy [...] required d/t increase pain and fatigue Outcome Measures:[facility] Daily Activity Putting on and taking off [...] tasks by discharge. Outcome: Progressing * Alicia Toro, ETHNOARCHAEOLOGY PROFESSOR-STORE CUSTODIAN - 03/08/2023 11:04 AM EST Abbey Garcia is a 32 [...] INDICATION: Signs/Symptoms:post op COMPARISON: None ACCESSION NUMBER(S): [id number] ORDERING CLINICIAN: JASON FOSTER TECHNIQUE: Frontal and [...] Sara Zarate 03/06/2023 1:48 PM Dictation workstation: [id number] Physical Exam Constitutional: Appearance: Normal appearance. HENT: [...] Intake/Output Summary (Last 24 hours) at 03/07/2023 0929 Last data filed at 03/07/2023 0546 Gross per 24 hour Intake 1405.83 ml Output 750 ml Net 655.83 ml Admission Weight Weight: 82.1 kg (181 lb) (03/05/23 0642) Daily Weight 03/07/23 : 82.2 kg (181 lb 3.5 oz) Image Results XR chest 1 view Narrative: Interpreted By: Sara Zarate, STUDY: XR CHEST 1 VIEW; 03/06/2023 7:32 am INDICATION: Signs/Symptoms:post op COMPARISON: None ACCESSION NUMBER(S): [id number] ORDERING CLINICIAN: JASON FOSTER TECHNIQUE: Frontal and [...] Sara Zarate 03/06/2023 1:48 PM Dictation workstation: [id number] Physical Exam Constitutional: Appearance: Normal appearance. HENT: [...] by Dr. Magaña; impaired mobility Referred By: Jason Foster APRN-BETH Past Medical History Relevant to Rehab: MALS, [...] due to increased fatigue levels. Outcome Measures: [facility] Basic Mobility Turning from your back to [...] INDICATION: Signs/Symptoms:post op COMPARISON: None ACCESSION NUMBER(S): [id number] ORDERING CLINICIAN: JASON FOSTER TECHNIQUE: Frontal and [...] Sara Zarate 03/06/2023 1:48 PM Dictation workstation: [id number] Physical Exam Constitutional: General: She is not [...] proph Karma Sharpe MD * Jason Foster, ETHNOARCHAEOLOGY PROFESSOR-STORE CUSTODIAN - 03/06/2023 1:57 PM EST Abbey Garcia [...] 50 mg, oral, BID Continuous medications potassium yghciiwk-A1-6.9%NaCl, 125 mL/hr, Last Rate: 125 mL/hr (03/06/23 [...] 03/05, impaired ADL's Referred By: Jason Foster, ETHNOARCHAEOLOGY PROFESSOR-STORE CUSTODIAN Past Medical History Relevant to Rehab: MALS, [...] recliner for comfort Prior Function: Level of [place]: Independent with ADLs and functional transfers, Independent with homemaking with ambulation ADL Assistance: Independent Homemaking Assistance: Independent Ambulatory Assistance: Independent 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 ADL: Eating Assistance: Independent Grooming Assistance: Moderate [...] Sensation Comment: BUE's WFL Strength: Strength Comments: BUE's WFL Coordination: Coordination Comment: BUE's WFL Hand Function: Hand Function Gross Grasp: Functional Coordination: Functional Outcome Measures: [facility] Daily Activity Putting on and taking off [...] Education Documentation Precautions, taught by Juanito Hernandez Jr. OT at 03/06/2023 10:25 AM. Learner: Patient Readiness: Acceptance Method: Explanation, Demonstration Response: Verbalizes Understanding ADL Training, taught by Juanito Hernandez Jr. OT at 03/06/2023 10:25 AM. Learner: Patient [...] tasks by discharge. 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 Learner: Patient Readiness: Eager Method: Explanation Response: Verbalizes Understanding Mobility Training, taught by Raudel Diana PT at 03/06/2023 10:02 AM. Learner: Patient Readiness: Eager Method: Explanation Response: Verbalizes Understanding * Chrissy Harris PA-C - 03/06/2023 7:28 AM EST [facility] Critical Care Medicine Date: 03/06/2023 Patient: Abbey [...] the morning. Take before meals. Pt to apple picking supervisor prescription ondansetron ODT (Zofran-ODT) 4 mg disintegrating [...] Grandmother Diabetes Paternal Grandmother Grandmother Asthma Brother [facility] Medications: potassium eluvkdzp-G0-0.9%NaCl, 125 mL/hr, Last Rate: 125 mL/hr (03/06/23 0700) Current Facility-Administered Medications: acetaminophen (Tylenol) tablet 650 mg, 650 mg, oral, q4h PRN OR acetaminophen (Tylenol) oral liquid 650 mg, 650 mg, oral, q4h PRN OR acetaminophen (Tylenol) suppository 650 mg, 650 mg, rectal, q4h PRN, Jason Foster, ETHNOARCHAEOLOGY PROFESSOR-STORE CUSTODIAN albuterol 2.5 mg /3 mL (0.083 %) nebulizer solution 3 mL, 3 mL, nebulization, q4h PRN, Desmond M Celestino, PA-C busPIRone (Buspar) tablet 10 mg, 10 mg, oral, BID, Desmond Tirado PA-C, 10 mg at 03/05/232141 dextrose 10 % in water (D10W) infusion, [...] mg, 20 mg, intravenous, BID, Baldomero Richards, [facility], 20 mg at 03/05/232142 ferrous sulfate (325 mg ferrous sulfate) tablet [...] Nightly, Desmond Tirado PA-C, 15 mg at 03/05/232141 ondansetron (Zofran) tablet 4 mg, 4 mg, oral, q8h PRN OR ondansetron (Zofran) injection 4 mg, 4mg, intravenous, q8h PRN, JAMA Lynn, 4 mg at 03/06/23 06 oxyCODONE-acetaminophen (Percocet) 5-325 mg per tablet 1 [...] encounter. Intake/Output Summary (Last 24 hours) at 03/06/2023 0728 Last data filed at 03/06/2023 0700 Gross [...] ICU skin protocol Ethics/Code Status: Full code Videotape Operator: DVT Prophylaxis: Lovenox GI Prophylaxis: pepcid Bowel Regimen: miralax Diet: Clear liquids CVC: none Lebo: yes - left radial Long: yes Restraints: no Dispo: ICU Critical Care Time: 40 minutes Chrissy Harris PA-C documented in this [facility] Work Phone: 1(457) 468-819101-24-2024 Nurse Note* Edilia Darby RN - 03/10/2023 11:57 AM EST Patient with Rt arm dual lumen picc, dressing D&I, red lumen in use without difficulty, purple lumen flushes easily and with positive blood return, curos cap applied. [facility]01-24-2024 Nurse Note* Edilia Darby RN - 03/10/2023 11:57 AM EST Patient with Rt arm dual lumen picc, dressing D&I, red lumen in use without difficulty, purple lumen flushes easily and with positive blood return, curos cap applied. * Nadia Zee RN - 03/10/2023 11:36 AM EST Long catheter removed * Elieen Austin RN - 03/10/2023 12:14 AM EST Blood sugar 79 gave patient hailee crackers and pudding. Complained 7/10 pain percocet was given * Yue Ferris [...] scanned for over 650cc, pt straight cath [id number] * Ogla Paz RN - 03/07/2023 5:47 AM EST [...] unit from PACU, unable to transfer in [facility]. No admit order yet. PACU Rns saw the warning note when trying to transfer the patient without admit orders. PACU staff will reach out to vascular doctor and FIRE EXTINGUISHER INSTALLER for the order. * Ron Mancera RN - 03/05/2023 1:58 PM EST Informed VAULT MAKER to ask Dr. Magaña for admit orders prior to transfer. [facility] Work Phone: 1(858) 551-808801-24-2024 Nurse Note* Nadia Zee RN - 03/10/2023 11:36 AM EST Long catheter removed [facility]01-24-2024 Nurse Note* Eileen Austin RN - 03/10/2023 12:14 AM EST Blood sugar 79 gave patient hailee crackers and pudding. Complained 08/24 pain percocet was given [facility]01-23-2024 Consult note* Jin Vargas MD - 03/09/2023 [...] medical history of MARSHAL (acute kidney injury) ([facility]/HCC), Autoimmune disorder (CMS/HCC), Bipolar disorder (CMS/HCC), BPH (benign prostatic hyperplasia), Cerebral aneurysm, Cervical cancer ([facility]/HCC), Cervical disc disease, Chronic kidney disease, CKD (chronic kidney disease), Cognitivedecline, Crohn's disease (CMS/HCC), Dementia (CMS/HCC), Dysphagia, Endometrial cancer (CMS/HCC), Esophageal cancer (CMS/HCC), Esophageal disease, ESRD (end stage renal disease) ([facility]), Fibromyalgia, primary, Fractures, Gastric cancer ([facility]/HCC), Gender dysphoria, GI (gastrointestinal bleed), Hemodialysis status ([facility]/HCC), Hernia, internal, History of peritoneal dialysis, HIV disease ([facility]/HCC), Immunocompromised ([facility]/HCC), Liver disease, Lumbar disc disease, Mastocytosis, MS (multiple sclerosis) ([facility]/HCC), Muscular dystrophy ([facility]/HCC), Myasthenia gravis ([facility]/HCC), Neuromuscular disorder (CMS/HCC), Ovarian cancer ([facility]/HCC), Pancreatitis, Peptic ulcer disease, Prematurity, PTSD (post-traumatic stress disorder), Schizophrenia (CMS/HCC), Seizure disorder ([facility]/HCC), Spinal stenosis, Substanceaddiction ([facility]/HCC), Syncope, TIA (transient ischemic attack), Ulcerative colitis [...] care of this patient. Jin Vargas MD [facility] Work Phone: 1(292) 177-992101-23-2024 Consult note* Jin Vargas MD - 03/09/2023 [...] (benign prostatic hyperplasia), Cerebral aneurysm, Cervical cancer ([facility]/HCC), Cervical disc disease, Chronic kidney disease, CKD (chronic kidney disease), Cognitivedecline, Crohn's disease ([facility]/HCC), Dementia ([facility]/HCC), Dysphagia, Endometrial cancer ([facility]/HCC), Esophageal cancer ([facility]/HCC), Esophageal disease, ESRD (end stage renal disease) ([facility]/HCC), Fibromyalgia, primary, Fractures, Gastric cancer ([facility]/HCC), Gender dysphoria, GI (gastrointestinal bleed), Hemodialysis status ([facility]), Hernia, internal, History of peritoneal dialysis, HIV disease ([facility]/HCC), Immunocompromised ([facility]/HCC), Liver disease, Lumbar disc disease, Mastocytosis, MS (multiple sclerosis) ([facility]/HCC), Muscular dystrophy ([facility]/HCC), Myasthenia gravis ([facility]/HCC), Neuromuscular disorder ([facility]/HCC), Ovarian cancer ([facility]/HCC), Pancreatitis, Peptic ulcer disease, Prematurity, PTSD (post-traumatic stress disorder), Schizophrenia ([facility]), Seizure disorder ([facility]), Spinal stenosis, Substanceaddiction ([facility]/HCC), Syncope, TIA (transient ischemic attack), Ulcerative colitis ([facility]/HCC), Urinary tract infection, Uterine cancer ([facility]), or Vertigo. 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 She was seen at [facility] by Dr. Kat and underwent an [...] She had a CT angiogram recently at [facility] but this is not available for [...] This is with Dr. Ramos over the [facility]. Currently any oral intake will result [...] mg, 650 mg, rectal, q4h PRN, Jason Foster APRN-BETH albuterol 2.5 mg /3 mL (0.083 %) [...] mg, 20 mg, intravenous, BID, Baldomero Richards, [facility], 20 mg at 03/06/23 0854 ferrous sulfate (325 mg ferrous sulfate) tablet 1 tablet, 1 tablet, oral, Daily with breakfast, Desmond Tirado PA-C, 1 tablet at 03/06/23 0907 glucagon (Glucagen) injection 1 mg, 1 mg, intramuscular, q15 min PRN, Desmond Tirado PA-C HYDROmorphone (Dilaudid) injection 0.5 mg, 0.5 mg, intravenous, q2h PRN, Jason Foster APRN-STORE CUSTODIAN, 0.5 mg at 03/06/23 0854 hydrOXYzine HCL [...] mg, 4mg, intravenous, q8h PRN, Jason Foster ETHNOARCHAEOLOGY PROFESSOR-STORE CUSTODIAN, 4 mg at 03/06/23 0603 oxyCODONE-acetaminophen (Percocet) 5-325 mg per tablet 1 tablet, 1 tablet, oral, q4h PRN, Jason Mckeon APRN-STORE CUSTODIAN polyethylene glycol (Glycolax, Miralax) packet 17 g, [...] Follow up Comment: 03/09/23 documented in this [facility] Work Phone: [phone]) 266-828501-23-2024 Nurse Note* Yue Ferris RN - 03/09/2023 2:22 PM EST Upon rounding right upper arm dual lumen PICC with current CHG dressing dry and intact. One lumen in use, one with brisk blood return and flushes easily, Curos cap intact. [facility] Plan of care note* Care Plan - Danny Middleton RN - 03/08/2023 11:21 PM EST The patient's goals for the shift include rest The clinical goals for the shift include pain will be controled overnight. [facility]01-22-2024 Miscellaneous Notes* Care Plan - Danny Middleton [...] Promote/optimize nutrition Outcome: Progressing Flowsheets (Taken 03/08/2023 0812) Promote/optimize nutrition: Monitor/record intake including meals Consume [...] Mancera RN Outcome: Progressing 03/05/2023 1549 by oRn Mancera RN Outcome: Progressing Goal: Performs ADL's [...] Procedures Release Median Arcuate Ligament by LAPAROTOMY [id number] - HI UNLISTED PX ABDOMEN MUSCULOSKELETAL SYSTEM Surgeons * Sherry Magaña - Primary Resident/Fellow/Other Screener And Blender: Surgeon(s) and Role: Procedure Summary Anesthesia: General ASA: III Anesthesia Staff: Anesthesiologist: Serena George DO CHICKEN PICKER: Maricruz Yip APRN-THOMAS Estimated Blood Loss: 2mL [...] EXAM Sherry Magaña MD 03/05/2023 1125 Staff: Complaint Evaluation Officer: Mary Mccabe RN; Natalie Young RN Scrub Person: Nadia Escobedo; Thu Ford Drains and/or Catheters: NG/OG/Feeding Tube NG - [place] sump 16 Fr Right nostril (Active) Tube [...] MEMBRANE, SEPRAFILM, 5 X 6 IN - [id number] Implanted Findings: heavily inflammed ligamentous tissues and [...] entire procedure. Sherry Magaña documented in this [facility] Work Phone: [phone]) 824-326501-22-2024 Plan of care note* Care Plan - [...] Promote/optimize nutrition Outcome: Progressing Flowsheets (Taken 03/08/2023 5566) Promote/optimize nutrition: Monitor/record intake including meals Consume [...] meds throughout the shift Outcome: Progressing . [facility]01-22-2024 Plan of care note* Care Plan - Olga Paz RN - 03/08/2023 2:27 AM EST The patient's goals for the shift include rest The clinical goals for the shift include increase activity Over the shift, the patient did not make progress toward the following goals. Barriers to progression include weak/pain. Recommendations to address these barriers include administer medications/interventions as ordered. [facility] Work Phone: [phone] 365-164301-22-2024 Nurse Note* Olga Paz RN - 03/08/2023 1:[address] Oconnor notified of retained urine. Order to insert long catheter. 16F long catheter placed, clear yellow urine return. Pt tolerated well. [facility]01-22-2024 Nurse Note* Olga Paz RN - 03/08/2023 12:48 AM EST Pt unable to urinate but continues to have an urge to do so. Bladder scan performed with 1152ml found. Page out to hospitalist. [facility] Work Phone: [phone] 148-837001-21-2024 Nurse Note* Nadia Zee RN - 03/07/2023 5:09 PM EST Pt with 10cc urine output since long removed, bladder scanned for over 650cc, pt straight cath [id number] [facility] Work Phone: [phone] 170-277701-21-2024 Plan of care note* Care Plan - Nadia Zee RN - 03/07/2023 8:50 AM EST The patient's goals for the shift include rest The clinical goals for the shift include increase activity Over the shift, the patient did not make progress toward the following goals. Barriers to progression include . Recommendations to address these barriers include . [facility] Work Phone: [phone]) 967-951201-21-2024 Nurse Note* Olga Paz RN - 03/07/2023 5:47 AM EST Long catheter removed per order. Pt tolerated well [facility] Work Phone: 1(445) 113-883001-20-2024 Plan of care note* Care Plan - Olga Paz RN - 03/06/2023 8:57 PM EST The patient's goals for the shift include rest The clinical goals for the shift include increase activity Over the shift, the patient did not make progress toward the following goals. Barriers to progression include weak/pain. Recommendations to address these barriers include encouragement/administer medications/interventions as ordered. [facility] Work Phone: [phone] 273-212601-20-2024 Nurse Note* Vic Gilliland RN - 03/06/2023 4:22 PM EST Seeking clarification of appropriate disposition of patient and possible transfer to SDU. Patient understands possibility of transfer. 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 She was seen at [facility] by Dr. Kat and underwent an [...] She had a CT angiogram recently at [facility] but this is not available for [...] This is with Dr. Ramos over the [facility]. Currently any oral intake will result [...] 650 mg, rectal, q4h PRN, Jason Foster, ETHNOARCHAEOLOGY PROFESSOR-STORE CUSTODIAN albuterol 2.5 mg /3 mL (0.083 %) [...] mg, 20 mg, intravenous, BID, Baldomero Richards, [facility], 20 mg at 03/06/23 0854 ferrous sulfate [...] Needed?: 3-5 days Follow up Comment: 03/09/23 [facility]01-20-2024 Plan of care note* Care Plan - [...] Recommendations to address these barriers include steroids. [facility] Work Phone: [phone] Nurse Note* Vic Gilliland RN - 03/06/2023 9:01 AM EST Returned to bed with assist of two. Head of bed elevated 45 degrees. [facility] Work Phone: [phone] Nurse Note* Ron Mancera RN - 03/05/2023 4:[address] Magaña at bedside, informed of the muscle spasm and administering PRN diazepam. No new orders placed. Plan to remove NGT tomorrow morning. [facility] Work Phone: [phone] Plan of care note* Care Plan - [...] control throughout the shift 03/05/2023 1549 by oRn Mancera RN Outcome: Progressing 03/05/2023 1549 by [...] 1549 by Ron Mancera RN Outcome: Progressing [facility] Work Phone: [phone] 958-925101-19-2024 History and physical note* Desmond Tirado PA-C - 03/05/2023 2:49 PM EST [facility] Critical Care Medicine Date: 03/05/2023 Patient: Abbey [...] the morning. Take before meals. Pt to apple picking supervisor prescription ondansetron ODT (Zofran-ODT) 4 mg disintegrating [...] Grandmother Diabetes Paternal Grandmother Grandmother Asthma Brother [facility] Medications: Current Facility-Administered Medications: acetaminophen (Tylenol) tablet 650 mg, 650 mg, oral, q4h PRN OR acetaminophen (Tylenol) oral liquid 650 mg, 650 mg, oral, q4h PRN OR acetaminophen (Tylenol) suppository 650 mg, 650 mg, rectal, q4h PRN, Jason Foster APRN-BETH HYDROmorphone (Dilaudid) injection 0.5 mg, 0.5 mg, intravenous, q2h PRN, JAMA Lynn, 0.5 mg at 03/05/23 1440 ondansetron (Zofran) tablet 4 mg, 4 mg, oral, q8h PRN OR ondansetron (Zofran) injection 4 mg, 4mg, intravenous, q8h PRN, Jason P Desmond, ETHNOARCHAEOLOGY PROFESSOR-STORE CUSTODIAN oxyCODONE-acetaminophen (Percocet) 5-325 mg per tablet 1 tablet, 1 tablet, oral, q4h PRN, JAMA Bob sennosides (Senokot) tablet 17.2 mg, 2 tablet, oral, BID, Jason Foster APRN-BETH Review of Systems: Review of Systems Constitutional: [...] ICU skin protocol Ethics/Code Status: Full code Videotape Operator: DVT Prophylaxis: none GI Prophylaxis: pepcid Bowel Regimen: miralax Diet: NPO CVC: none Lebo: yes - left radial Long: yes Restraints: no Dispo: ICU Critical Care Time: 60 minutes spent in preparing to see patient (I.e.labs,imaging, etc.), documentation, discussion plan of care with patient/family/caregiver, and/ or coordination of care with multidisciplinary team including the attending. Time does not include completion of procedure time. Desmond Tirado PA-C [facility] Work Phone: [phone] 560-114501-19-2024 History and physical note* Desmond Tirado PA-C - 03/05/2023 2:49 PM EST [facility] Critical Care Medicine Date: 03/05/2023 Patient: Abbey [...] suction. PICC line in place for TPN. Pravin and yoli post-op - likely remove tomorrow [...] the morning. Take before meals. 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 She was seen at [facility] by Dr. Kat and underwent an [...] She had a CT angiogram recently at [facility] but this is not available for [...] This is with Dr. Ramos over the [facility]. Currently any oral intake will result [...] to review the CT angiogram done at [facility]. She is going to undergo a [...] with Dr. Deacon Kat. documented in this [facility] Work Phone: [phone] 613-822001-19-2024 Nurse Note* Ron Mancera RN - 03/05/2023 2:01 PM EST Patient in the unit from PACU, unable to transfer in EPIC. No admit order yet. PACU Rns saw the warning note when trying to transfer the patient without admit orders. PACU staff will reach out to vascular doctor and FIRE EXTINGUISHER INSTALLER for the order. [facility] Work Phone: [phone] 286-493901-19-2024 Nurse Note* Ron Mancera RN - 03/05/2023 1:58 PM EST Informed VAULT MAKER to ask Dr. Magaña for admit orders prior to transfer. [facility] Work Phone: [phone] 139-684001-19-2024 Note* Perioperative Nursing Note - Samantha Fields RN - 03/05/2023 1:52 PM EST Patient meets PACU discharge criteria. [facility]01-19-2024 Note* Perioperative Nursing Note - Samantha Fields RN - 03/05/2023 1:07 PM EST Patient to PACU bay 7 with left radial art line in place. Zeroed and waveforms appropriate. Clean/dry and intact. VSS. [facility] Work Phone: [phone] Note* Op Note - Sherry Magaña MD [...] Procedures Release Median Arcuate Ligament by LAPAROTOMY [id number] - HI UNLISTED PX ABDOMEN MUSCULOSKELETAL SYSTEM Surgeons * Sherry Magaña - Primary Resident/Fellow/Other Screener And Blender: Surgeon(s) and Role: Procedure Summary Anesthesia: General ASA: III Anesthesia Staff: Anesthesiologist: Serena George DO CHICKEN PICKER: Maricruz Yip APRN-THOMAS Estimated Blood Loss: 2mL [...] EXAM Sherry Magaña MD 03/05/2023 1125 Staff: Complaint Evaluation Officer: Mary Mccabe RN; Natalie Young RN Scrub Person: Nadia Escobedo; Thu Ford Drains and/or Catheters: NG/OG/Feeding Tube NG - [place] sump 16 Fr Right nostril (Active) Tube Status Low intermittent suction 03/05/23 1257 Site Assessment Clean;Dry;Intact 03/05/23 1257 Drainage Appearance None 03/05/23 1257 Urethral Catheter Non-latex 16 Fr. (Active) Site Assessment Clean;Skin intact 03/05/23 1256 Collection Container Standard drainage bag 03/05/23 1256 Securement Method Securing device (Describe) 03/05/23 1256 Tourniquet Times: Implants: Implants Type Name Action Serial No. Implant MEMBRANE, JASON, 5 X 6 IN - [id number] Implanted Findings: heavily inflammed ligamentous tissues and [...] scrubbed for the entire procedure. 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 She was seen at [facility] by Dr. Kat and underwent an [...] She had a CT angiogram recently at [facility] but this is not available for [...] This is with Dr. Ramos over the [facility]. Currently any oral intake will result [...] to review the CT angiogram done at [facility]. She is going to undergo a [...] UGIS. Will discuss with Dr. Deacon Kat. [facility] Work Phone: [phone]) [phone] NoteHNO ID: [id number] Author: Rylee Thacker APRN.STORE CUSTODIAN Service: ? Author Type: Nurse Practitioner Type: Progress Notes Filed: 01/28/2023 3:12 PM Note Text: [facility] Miscellaneous Notes* Telephone Encounter - Laura Rodas, DEE - 01/18/2023 9:20 AM EST [facility] to confirm received potassium orders for (K-2.9). No answer and left message for Thea lamination operator from [facility]. (Do not feel Dr. Kat is managing TPN as well) * Telephone Encounter - Dorita Manning - 01/15/2023 11:47 AM EST [facility] called regarding potassium level. Level was 2.9. Patient already on max dose of potassium allowed with her TPN. They are asking for recommendations # [phone] documented in this [facility]11-27-2023 Miscellaneous Notes* Telephone Encounter - Joaquín [...] if so ok to call her back [phone] Ok to leave a message documented in this encounterMedina Hospital11-27-2023 Miscellaneous Notes* Telephone Encounter - Fern Jonas LPN - 01/11/2023 10:49 AM EST Surg request placed, pt aware, instructions given verbally and via mychart, all questions and concerns addressed. documented in this encounterMedina Hospital11-27-2023 NoteHNO ID: [id number] Author: Fern Jonas LPN Service: ? 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 Physician attestation: IVic MD, personally performed the services described in [...] which included preparing to see the patient, grja-dl-exap patient care, completing clinical documentation, obtaining and/or reviewing separately obtained history, counseling and educating the patient/family/caregiver, ordering medications, stevan ts, or procedures, communicating with other HCPs (not separately reported), independently interpreting results (not separately reported), communicating results to the patient/family/caregiver, and care coordination (not separately reported). Vic Ramos MD January 08, 2023 documented in this encounterMedina Hospital11-22-2023 Miscellaneous Notes* Telephone Encounter - Clarence [...] PM EST Called patient no answer left to call office regarding reason for visit (No diagnosis) To send medical records if possible prior to visit related to pain for visit. documented in this encounterMedina Hospital11-16-2023 Hospital Discharge instructions Patient Education 12/31/2022 [...] oral rehydration solution (ORS). This is an ywom-glb-jjbkmjn medicine that helps return your body to [...] drinks, sports drinks, and soda. Eat bland, sekl-ne-psmgaw foods in small amounts as you are able. These foods include bananas, applesauce, rice, lean meats, toast, and crackers. Avoid alcohol. Avoid spicy or fatty foods. Medicines Take rxqy-dtr-uxoobqu and prescription medicines only as told by your health care provider. If you were prescribed an antibiotic medicine, take it as told by your health care provider. Do notstop using the antibiotic even if you start to feel better. General instructions Wash your hands often using soap and water. If soap and water are not available, use a hand tile layer drainage. Others in the household should wash their [...] soap and water are not available, usehand tile layer drainage. Contact a health care provider if your diarrhea gets worse or you have new symptoms. Get help right away if you have signs of dehydration. This information is not intended to replace advice given to you by your health care provider. Make sure you discuss any questions you have with your health care provider. Document Revised: 08/13/2021 Document Reviewed: 08/13/2021 [email or web address] Patient Education 2022 [employer]. 12/31/2022 16:02:59 Abdominal Pain, Adult Abdominal Pain, [...] Follow these instructions at home: Medicines Take sdwy-nkt-drypqmh and prescription medicines only as told by [...] Watch your condition for any changes. Take lbnz-hsm-qjhqpjg and prescription medicines only as told by [...] provider. Document Revised: 03/22/2020 Document Reviewed: 06/12/2019 [email or web address] Patient Education 2022 [employer]. Follow Up Care 12/31/2022 12:31:54 With:Jaquan Morrow Address: [address] [place] [address]- Business (1) When:01/03/2023 15:35:16 [facility]11-16-2023 Evaluation + Plan noteExtracted from: Title:ED Note Author:Blanca QUIROZ, Lonnie Arroyo te:12/31/22 Abdominal pain (R10.9: Unspe cified abdominal [...] Future Appointments Appointment Date:01/20/2023 10:00:00 AM Scheduled Provider:Nasim JOHNSON, Rajni Ballesteros Location:[facility] Appointment Type:URO Office Visit Future Scheduled Tests Radiology* US Renal 06/10/22 [facility]11-13-2023 Miscellaneous Notes* Telephone Encounter - Shanique Manning HUC - 12/28/2022 4:05 PM EST BMI Incoming Patient Nursing Line Call Summary: Situation/Concerns Melisa Potter's called [phone] called and said Abbey needs a RTWletter [...] Telephone Encounter. CHRIS Katz documented in this encounterMedina Hospital10-30-2023 History of Present illness Narrative* Deacon [...] Either the patient or their legal sales and marketing representative has been informed of the risks [...] opinion. Deacon Kat MD documented in this encounterMedina Hospital10-30-2023 [facility]Sum[facility]10-25-2023 NoteSum[facility]10-25-2023 [facility]Sum[facility]10-25-2023 NoteSum[facility]10-24-2023 Note [facility] [facility] 12-04-2022 History and physical note* Agustin Zamorano MD [...] was started since her last admission to [facility] last week. Patient's weight has been fluctuating [...] 12/16/2022 Time: 2:19 PM documented in this encounterMedina Hospital10-19-2023 Miscellaneous Notes* Telephone Encounter - Oliva Dobbs RN - 12/03/2022 2:00 AM EDT BMI SPECIALTY CARE COORDINATION TELEPHONE ENCOUNTER Patient hospitalized 11/27 unsure if d/c. Referred to Dr Kat who referred to Dr Zamorano [facility] of hypothyroidism, HTN, gastric ulcer, GERD, asthma, [...] for MALS- plans for surgical intervention at [facility] Consult scheduled with Dr Zamorano on 12/04. Will r/s if pt still in house. 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 referral to GI specialist , on TPN documented in this encounterMedina Hospital10-17-2023 Miscellaneous Notes* Telephone Encounter - Li Kimball RN - 12/01/2022 2:32 PM EDT Patient remains admitted at [facility]. Patient received a PICC line for home TPN to bridge her to surgery. Patient is scheduled with Dr. Zamorano for virtual consult 12/04/2022. Patient with increasednausea with TPN, [facility] continues to adjust medications. Li Kimball RN documented in this encounterMedina Hospital10-14-2023 NoteHNO ID: [id number] Author: Note, Interface Service: ? Author Type: ? Type: Progress Notes Filed: 11/28/2022 5:10 AM Note Text: Epic Scheduled Downtime: 11/28/2022 1:00:00 AM to 11/28/2022 1:28:00 [facility] NoteHNO ID: [id number] Author: Note, Interface Service: ? Author Type: ? Type: Progress Notes Filed: 11/28/2022 3:45 AM Note Text: Epic Scheduled Downtime: 11/28/2022 1:00:00 AM to 11/28/2022 1:28:00 [id number] NoteHNO ID: [id number] Author: Note, Interface Service: ? Author Type: ? Type: Progress Notes Filed: 11/28/2022 3:27 AM Note Text: Epic Scheduled Downtime: 11/28/2022 1:00:00 AM to 11/28/2022 1:28:00 [facility]10-12-2023 NoteHNO ID: [id number] Author: Quyen Deshpande RN Service: ? Author Type: Registered Nurse Type: Progress Notes Filed: 11/26/2022 10:37 AM Note Text: Patient in office for hydration infusion. Patient tolerated infusion well. [facility] [id number] Miscellaneous Notes* Telephone Encounter - Kristin Hu RN - 11/25/2022 12:55 PM EDT Left message confirming pts appt tomorrow in the chronic care clinic for hydration. documented in this encounterMedina Hospital10-09-2023 Miscellaneous Notes* Telephone Encounter - Li Kimball RN - 11/23/2022 2:26 PM EDT Mesenteric ultrasound scheduled [facility] 11[facility]26[facility]20[facility] at [facility], patient notified. Li Kimball RN * Telephone Encounter - Li Kimball RN - 11/23/2022 12:31 PM EDT I spoke to the patient's and advised that I have a request out to [facility] for IV hydration and Dr. Kat has [...] states the hospital ids going to discharge Abbey and states she is unable to eat or drink and continues to have pain. Li Kimball RN documented in this encounterMedina Hospital10-08-2023 [facility] 11-22-2022 [facility] [id number] NoteAddison Gilbert HospitalOavyslht32-41-4456 NoteHNO ID: [id number] Author: Rajni Walsh RN Service: ? Author Type: Registered Nurse Type: Nursing Progress Note Filed: 11/18/2022 10:13 AM Note Text: Other: C/o ultram not working.Will see about another order.Urine was sent to lab.Will reassess.[facility] [id number] NoteAddison Gilbert HospitalVehgheda38-84-0431 Miscellaneous Notes* Telephone Encounter - Li Kimball RN - 11/16/2022 11:51 AM EDT Patient called and states she continues to have abdominal pain and is asking for a Tramadol prescription. Patient also asking for IV fluids as her fluid intake is still not normal. Li Kimball RN documented in this encounterMedina Hospital09-29-2023 NoteHNO ID: [id number] Author: Pablo Lebron PSYD Service: ? Author Type: Psychologist Type: Progress Notes Filed: 11/13/2022 8:36 AM Note Text: Assessment was conducted over the phone due to pt's technical difficulties. Patient is a resident of [place], and completed the assessment over the phone in [place]. Psychologist is licensed and stationed in [place]. Informed consent was discussed and verbal assent [...] Focused Psychotherapy, Supportive Therapy PROGRESS TO DATE: Detention Progress: Stable Short Term Condition: Stable GOALS/OBJECTIVES/INTERVENTIONS: To identify and implement tools for effectively managing symptoms of anxiety, stress, and low mood. Approximately 40 minutes were spent with the patient doing therapy. Pablo Lebron PsyDLawrence F. Quigley [facility] Hospital09-28-2023 NoteAddison Gilbert [id number] NoteJennifer [place] [address]-27-2023 [place] [address]-27-2023 History of Past illness Narrative* Problem Noted [...] of this encounter (statuses as of 11/17/2022) [facility] of Past illness Narrative* Problem [...] of this encounter (statuses as of 11/18/2022) [place] [address]-27-2023 History of Past illness Narrative* Problem Noted [...] of this encounter (statuses as of 11/21/2022) [facility] of Past illness Narrative* Problem [...] of this encounter (statuses as of 11/24/2022) [facility] of Past illness Narrative* Problem [...] of this encounter (statuses as of 11/25/2022) [facility] of Past illness Narrative* Problem [...] of this encounter (statuses as of 11/27/2022) [facility] of Past illness Narrative* Problem [...] of this encounter (statuses as of 12/02/2022) [facility] illness Narrative* Problem [...] of this encounter (statuses as of 12/03/2022) [facility] illness Narrative* Problem [...] of this encounter (statuses as of 12/15/2022) [facility] Narrative* Problem [...] of this encounter (statuses as of 12/15/2022) [facility] Narrative* Problem [...] of this encounter (statuses as of 12/17/2022) [facility] Narrative* Problem [...] of this encounter (statuses as of 12/31/2022) [facility] Narrative* Problem [...] of this encounter (statuses as of 01/06/2023) [facility] Narrative* Problem [...] of this encounter (statuses as of 01/08/2023) [facility] Narrative* Problem [...] of this encounter (statuses as of 01/11/2023) [facility] Narrative* Problem [...] of this encounter (statuses as of 01/11/2023) [facility] Narrative* Problem [...] of this encounter (statuses as of 01/12/2023) [facility] Narrative* Problem [...] of this encounter (statuses as of 01/18/2023) [facility] illness Narrative* Problem [...] of this encounter (statuses as of 01/18/2023) [facility] Narrative* Problem [...] of this encounter (statuses as of 04/07/2023) [facility] Narrative* Problem [...] of this encounter (statuses as of 05/05/2023) [facility] Narrative* Problem [...] of this encounter (statuses as of 05/07/2023) [facility] Narrative* Problem [...] of this encounter (statuses as of 05/10/2023) [facility] illness Narrative* Problem [...] of this encounter (statuses as of 05/18/2023) [facility] Narrative* Problem [...] of this encounter (statuses as of 05/27/2023) [facility] illness Narrative* Problem [...] of this encounter (statuses as of 05/28/2023) [facility] Narrative* Problem [...] of this encounter (statuses as of 05/28/2023) [facility] Narrative* Problem [...] of this encounter (statuses as of 05/30/2023) [facility] of Past illness Narrative* Problem [...] of this encounter (statuses as of 06/02/2023) [facility]09[facility]26[facility]Sum[facility]23 Miscellaneous Notes* Telephone Encounter - Li Kimball RN - 11/09/2022 4:40 PM EDT Patient notified that surgery has to be moved to Wednesday as gastroenterology is no longer available to assist. I encouraged the patient to come to [place] ED if pain worsens or she develops an newor other concerning symptoms. Patient stated understanding and had no further questions. Li Kimball RN documented in this encounterMedina Hospital09-23-2023 [facility] 11-06-2022 Miscellaneous Notes* Telephone Encounter - Li [...] within 10-15 minutes. Patient remains admitted to [facility] and is scheduled for a HIDA [...] questions. Li Kimball RN documented in this encounterMedina Hospital09-22-2023 [facility] 11-06-2022 [facility] HospitalZjdnmdqz03-58-2077 History of Present illness Narrative* Agustin Sheets, RT(R) - 11/06/2022 10:54 AM EDT RADIOLOGY [...] radiation safety can be found usingthis link: [email or web address] SIGNATURE: RT Oj(R) PATIENT NAME: Abbey Garcia DATE: November 06, 2022 TIME: 10:54 AM PAGER/CONTACT #: documented in this encounterMedina Hospital09-20-2023 History of Present illness Narrative* Deacon [...] healthy appearing mucosa. This was traversed. The hyvon-co-enncast limb was characterized by healthy appearing mucosa. [...] YELLOW YELLOW APPEARANCE, URINE CLEAR CLEAR Specific [place], Urine 1.010 - 1.025 1.020 PH URINE [...] 3+ Independent interpretation of test from other physician/QP Risk: Low: Low risk from testing/treatment Medical Decision Making Level: 4 - Moderate Deacon Kat MD documented in this encounterMedina Hospital09-20-2023 [facility]09-18-2023 Miscellaneous Notes* Telephone Encounter - Haroon [...] on Haroon Seay APRN.CNP documented in this encounterMedina Hospital09-18-2023 Emergency department Note * Dayanara Montana RN - 11/02/2022 11:55 AM EDT Pt states that her pain is getting worse along with her nausea [facility]09-18-2023 Emergency department Note* Dayanara Montana RN - [...] CT scans showing possible kidney stones near [facility], here today because hands turned brown) JANINE Garcia is a 32 y.o. female who presents with abdominal pain. Patient has had multiple weeks of abdominal pain. She has had multiple ER visits in [facility]. She had multiple CT scans with no [...] Walker MD 11/02/22 1325 documented in this encounterA[facility]09-18-[facility] Emergency department Note* Dayanara Montana RN - 11/02/2022 11:44 AM EDT Pt requesting to use the restroom and wants assistance. Stand by assist given pt walk with a slow steady gait at this time without difficulty [facility]09-18-2023 Physician Emergency department Note* Dimitri Walker MD - 11/02/2022 10:55 AM EDT DEPARTMENT OF EMERGENCY MEDICINE CHIEF COMPLAINT Abdominal Pain (Reports has been seen a couple of times with CT scans showing possible kidney stones near [facility], here today because hands turned brown) JANINE Garcia is a 32 y.o. female who presents with abdominal pain. Patient has had multiple weeks of abdominal pain. She has had multiple ER visits in [facility]. She had multiple CT scans with no [...] bypass surgeon. Dimitri Walker MD 11/02/22 1325 [facility]09-16-2023 Hospital Discharge instructions* Discharge Instructions* Jalyn Suresh [...] sent through Care Everywhere. * Back: Strain ([place] Citizen) documented in [facility] encounterB[facility] 10-26-2022 [facility] HospitalWrrapluu41-42-6128 History of Past illness Narrative* Problem Noted [...] of this encounter (statuses as of 10/28/2022) [facility]10[facility] History of Past illness Narrative* Problem [...] of this encounter (statuses as of 11/03/2022) [facility] History of Past illness Narrative* Problem [...] of this encounter (statuses as of 11/03/2022) [facility] of Past illness Narrative* Problem [...] of this encounter (statuses as of 11/03/2022) [facility] of Past illness Narrative* Problem [...] of this encounter (statuses as of 11/03/2022) [facility] of Past illness Narrative* Problem [...] of this encounter (statuses as of 11/04/2022) [facility] of Past illness Narrative* Problem [...] of this encounter (statuses as of 11/04/2022) [facility] of Past illness Narrative* Problem [...] of this encounter (statuses as of 11/05/2022) [facility] of Past illness Narrative* Problem [...] of this encounter (statuses as of 11/05/2022) [facility] of Past illness Narrative* Problem [...] of this encounter (statuses as of 11/06/2022) [facility] of Past illness Narrative* Problem [...] of this encounter (statuses as of 11/06/2022) [facility] History of Past illness Narrative* Problem [...] of this encounter (statuses as of 11/10/2022) [facility]09-10-2023 [facility] [id number] Miscellaneous Notes* Telephone Encounter - Li Kimball [...] nausea vomiting and pain return call to [phone] documented in this encounterMedina Hospital09-05-2023 Hospital Discharge instructions Patient Education 10/20/2022 [...] medicines. These include steroids, antibiotics, and some fjit-swa-riqnqfy medicines, such as aspirin or ibuprofen. Having [...] Follow these instructions at home: Medicines Take nwbs-zmz-xxykamw and prescription medicines only as told by [...] provider. Document Revised: 06/07/2021 Document Reviewed: 06/07/2021 [email or web address] Patient Education 2022 [employer]. 10/20/2022 12:40:07 Abdominal Pain, Adult Abdominal Pain, [...] Follow these instructions at home: Medicines Take ohqx-chs-wvhmppl and prescription medicines only as told by [...] Watch your condition for any changes. Take kons-lca-dkyaacc and prescription medicines only as told by [...] provider. Document Revised: 03/22/2020 Document Reviewed: 06/12/2019 [email or web address] Patient Education 2022 [employer]. Follow Up Care 10/20/2022 08:06:19 With:Jaquan Morrow Address: [address] [place], [place] [phone]- Business (1) When:10/23/2022 12:06:27 [facility]09-04-2023 Evaluation + Plan noteExtracted from: Title:ED Note Author:Earnest Jett DO Date:10/19 Abdominal pain (R10.9: Unspe cified abdominal pain) Ordered: acetaminophen-oxycodone, 1 tab(s), Oral, q6hr for 3 day(s), 10 tab(s), Refill(s) 0, [id number], 168, cm, 10/19/22 8:44:00 EDT, Height/Length Dosing, [...] nausea, # 10 tab(s), Refills(s) 0, Pharmacy: [facility] #[id number], 168, cm, 10/19/22 8:44:00 EDT, [...] QID, # 280 mL, Refills(s) 0, Pharmacy: [facility]/pharm[facility] #[id number], 168, cm, 10/19/22 8:44:00 EDT, Height/Length Dosing, 85.6, kg, 10/19/22 8:44:00 EDT, Weight Dosing Automated Diff Basic Metabolic Panel CBC w/ Auto Diff eGFR Extra Blue Tube Extra SST Tube Hepatic Function Panel Lipase Level TSH With T4fr Reflex UA With Cult Reflex XR Chest 2 Views Future Appointments Appointment Date:11/20/2022 02:40:00 PM Scheduled Provider: Location:[facility] Appointment Type:FM Lab Draw Appointment Date:01/20/2023 10:00:00 AM Scheduled Provider:Nasim JOHNSON, Rajni Ballesteros Location:[facility] Appointment Type:URO Office Visit Future Scheduled Tests Laboratory* T3 Free 10/07/22 * Thyroid Stimulating Hormone 10/07/22 * Free T4 10/07/22 Radiology* US Renal 06/10/22 [facility]09-04-2023 Hospital Discharge instructions Follow Up Care 10/19/2022 08:31:02 With:Jon Kishanmicaela Address: [address], [address] [phone] Business (1) When:10/22/2022 13:40:06 With:Your GI physician Address:Unknown When:10/22/2022 13:40:01 With:Jaquan Morrow Address: [address] [place], [place] [phone]- Business (1) When:Within 3 Day(s) [facility]08-31-2023 Miscellaneous Notes* Telephone Encounter - Ria [...] and advise. Grecia Wallace documented in this encounterMedina Hospital08-21-2023 NoteHNO ID: [id number] Author: Pablo Lebron PSYD Service: ? Author Type: Psychologist Type: Progress Notes Filed: 10/05/2022 3:51 PM Note Text: Assessment was conducted over the phone due to pt's technical difficulties. Patient is a resident of [place], and completed the assessment over the phone in [place]. Psychologist is licensed and stationed in [place]. Informed consent was discussed and verbal assent [...] Focused Psychotherapy, Supportive Therapy PROGRESS TO DATE: Sanitation Tank Washer Progress: Stable Short Term Condition: Stable GOALS/OBJECTIVES/INTERVENTIONS: To identify and implement tools for effectively managing symptoms of anxiety, stress, and low mood. Approximately 45 minutes were spent with the patient doing therapy. Pablo Jose Bernardino, [facility]08-21-2023 History of Present illness Narrative* Pablo Lebron, CECILIA - 10/05/2022 3:07 PM EDT Assessment was conducted over the phone due to pt's technical difficulties. Patient is a resident of [place], and completed the assessment over the phone in [place]. Psychologist is licensed and stationed in [place]. Informed consent was discussed and verbal assent [...] Focused Psychotherapy, Supportive Therapy PROGRESS TO DATE: Sanitation Tank Washer Progress: Stable Short Term Condition: Stable GOALS/OBJECTIVES/INTERVENTIONS: To identify and implement tools for effectively managing symptoms of anxiety, stress, and low mood. Approximately 45 minutes were spent with the patient doing therapy. Pablo Lebron PsyD documented in this encounterMedina Hospital08-14-2023 Instructions* Patient Instructions* Xiomara Martinez RD [...] Fusion multivitamin soft chews and calcium citrate 3986-1013 mg/day(3 soft chews), and continue Probiotic drink [...] should last 30 minutes. 7. Aim for 6190-9802 calories and 75-100 gm carbs per day Nutrition Monitoring & Evaluation: Maintain BMI < 30 Need for Follow up: 4 months, for conversion anniversary - [phone] documented in this encounterMedina Hospital08-14-2023 History of Present illness Narrative* Xiomara Martinez RD - 09/28/2022 8:00 AM EDT [facility] Nutrition Therapy: Virtual Consult - Re-assessment I have communicated my name and active licensure. The patient s identity and physical location wereverified at the time of this visit. Either the patient or their legal sales and marketing representative has been informed of the risks [...] Fusion multivitamin soft chews and calcium citrate 4738-0251 mg/day(3 soft chews), and continue Probiotic drink [...] should last 30 minutes. 7. Aim for 2779-6291 calories and 75-100 gm carbs per day Nutrition Monitoring & Evaluation: Maintain BMI < 30 Need for Follow up: 4 months, for conversion anniversary - [phone] PROGRESS: Interval History: Patient presents for follow [...] the day. Recently started tracking intake on XDC bre. Consistent, but likely insufficient protein intake. Following Phase 5 diet currently. 8278-5889 calories/day - meeting low-end needs 60-70 gm protein intake/day - falling below recommendations 60-90 oz fluid intake/day - meeting needs Taking all vitamin/minerals, however insufficient calcium citrate. Labs reviewed, unremarkable. Resting Metabolic Rate:1557 Energy needs for weight loss 1423-2568 (15-20 carina/kg current weight) Protein needs: 85 [...] Fusion One a Day multivitamin capsule PLUS 9533-6709 mg calcium citrate 5. Exercise: strive for [...] None Likelihood of Adherence: High Referred by: Shey FRIAS Billing Type: Re-assess/15 min 2 units SIGNATURE: Xiomara Martinez RD PATIENT NAME: Abbey Garcia DATE: 09/28/2022 TIME: 7:48 AM PAGER: [phone] documented in this encounterMedina Hospital08-14-2023 [facility]Sum[facility] NoteSum[facility]08-07-2023 NoteHNO ID: [id number] Author: Pablo Lebron PSYD Service: ? Author Type: Psychologist Type: Progress Notes Filed: 09/22/2022 12:47 PM Note Text: Assessment was conducted over the phone due to pt's technical difficulties. Patient is a resident of [place], and completed the assessment over the phone in [place]. Psychologist is licensed and stationed in [place]. Informed consent was discussed and verbal assent [...] importance of working outside house; balance). 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 Animosity from and mom (not enough time at home). Hurt by mom's words wants to communicate, she internalizes. Marital therapy? Appreciative of family help with kids. Sources of support (brother and erejxq-cm-pfw), close friend High anxiety and panic attacks [...] Focused Psychotherapy, Supportive Therapy PROGRESS TO DATE: Detention Progress: Stable Short Term Condition: Stable GOALS/OBJECTIVES/INTERVENTIONS: To identify and implement tools for effectively managing symptoms of anxiety, stress, and low mood. Approximately 45 minutes were spent with the patient doing therapy. Pablo Lebron [place] [address]-07-2023 History of Present illness Narrative* Pablo Lebron Jose, [facility] - 09/21/2022 2:04 PM EDT Assessment was conducted over the phone due to pt's technical difficulties. Patient is a resident of [place], and completed the assessment over the phone in [place]. Psychologist is licensed and stationed in [place]. Informed consent was discussed and verbal assent [...] importance of working outside house; balance). 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 Animosity from and mom (not enough time at home). Hurt by mom's words wants to communicate, she internalizes. Marital therapy? Appreciative of family help with kids. Sources of support (brother and tktfrz-vw-bew), close friend High anxiety and panic attacks [...] Focused Psychotherapy, Supportive Therapy PROGRESS TO DATE: Detention Progress: Stable Short Term Condition: Stable GOALS/OBJECTIVES/INTERVENTIONS: To identify and implement tools for effectively managing symptoms of anxiety, stress, and low mood. Approximately 45 minutes were spent with the patient doing therapy. Pablo Lebron PsyD documented in this encounterMedina Hospital08-04-2023 [facility]Sum[facility]08-[facility]-20[facility] History of Present illness Narrative* Breanna Stern APRN.STORE CUSTODIAN - 09/18/2022 3:14 PM EDT BMI SURGERY [...] Total weight loss: 11.3 kg (25 lb) [place] weight: 70.3 kg (154 lb 14.5 oz) Excess weight: 24.5 kg (54 lb 1.5 oz) % of excess body weight lost: 11.3 kg (25 lb) (46.22% of excess weight loss) COMPLICATIONS SINCE LAST VISIT?: NONE EGD 06/23/22 Findings: The examined esophagus was normal. 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 The gastrojejunal anastomosis was characterized by healthy appearing mucosa. This was traversed. The gwpqg-jb-uhlazki limb was characterized by healthy appearing mucosa. [...] 40 f bougie). This was traversed. The oithp-ur-zmwbfdr limb was characterized by healthy appearing mucosa. [...] LABS: Today: See Epic Orders Breanna Stern APRN.BETH Medical Decision Making: Problems: Low: Stable chronic illness Moderate: 1+ chronic illnesses with change Data: Unique test result(s) reviewed: 2 Unique test(s) ordered: 3+ Risk: Low: Low risk from testing/treatment Medical Decision Making Level: 4 - Moderate documented in this encounterMedina Hospital08-04-2023 Nurse Note* Jayla Meza MA - [...] Temperature: No Drains: No documented in this encounterMedina Hospital06-22-2023 Miscellaneous Notes* Telephone Encounter - Linda [...] the dosing. Thanks, Linda documented in this encounterMedina [facility] Hospital Discharge instructions Follow Up Care 07/29/2022 09:18:39 With:Nasim JOHNSON, Rajni Ballesteros, URL, URO Address: [address], [place] [phone] When: Unknown [facility] 06-14-2023 Hospital Discharge instructions Patient Education 07/29/2022 09:09:30 [...] include: ?8 oz (237 mL) of milk, lvqgauq-xivenrqgammd-zdijk milk, and calcium- fortifiedfruit juice. Calcium-fortified means [...] ?Spinach (cooked), rhubarb, beets, sweet potatoes, and Fijian chard. ?Peanuts. ?Potato chips, faroese fries, and baked potatoes with skin on. ?Nuts and nut products. ?Chocolate. If you regularly take a diuretic medicine, make sure to eat at least 1 or 2 servings of fruits or vegetables that are high in potassium each day. These include: ?Avocado. ?Banana. ?[place], prune, carrot, or tomato juice. ?Baked potato. [...] magnesium, fish oil, or vitamin B6. Take saih-vcb-skwvrrb and prescription medicines only as told by [...] Casseroles. Pizza. Lasagna. Frozen meals. Potato chips. Kinyarwanda fries. The items listed above may not [...] provider. Document Revised: 10/13/2021 Document Reviewed: 10/13/2021 [employer]Active Patient Education 2022 [email or web address] Follow Up Care 06/30/2022 09:39:02 With:Nasim JOHNSON, YUMIKO Lamar, URO Address: When: Unknown [facility] 06-13-2023 Instructions* Patient Instructions* Samara Evans MD - 07/28/2022 2:20 PM EDT For [...] blistering or peeling skin. documented in this encounterMedina Hospital06-13-[facility]23 History of Present illness Narrative* Samara Evans MD - 07/28/2022 1:00 PM EDT EST [...] Dary Murray RN acting as scribe for Samara Evans MD. July 28, 2022 12:53 PM. Dary Murray RN Attestation: I agree with the Chief Complaint, ROS, and Past Histories independently gathered by the clinical systems support specialist, and the remaining scribed note accurately describes [...] no procedures performed during this patient's visit. Samara Evans MD documented in this encounterMedina Hospital06-08-2023 Miscellaneous Notes* Telephone Encounter - Linda [...] denying Motegrity authorization Full letter scanned in Pull for review Grecia Wallace * Telephone Encounter [...] 07/23/2022 8:49 AM EDT Fax received from [facility] to notify Motegrity not covered, will need PA or prescribe alternative: Linzess, Trulance or Amitza Fax scanned in Pull Grecia Wallace documented in this encounterMedina Hospital06-07-[facility]23 History of Present illness Narrative* Donnie [...] with cornea provider or optom- closer to [place] precautions were discussed in detail Plan reviewed with the patient who verbalizes understanding Donnie David MD Ophthalmology Resident documented in this encounterMedina Hospital06-07-2023 History of Present illness Narrative* Kasie [...] lesion. Mild degenerative changes. Lower thorax: Unremarkable. Cephalometric Technician (topogram) images: No additional findings. CT ABD/PEL [...] Tissues: No acute abnormality. Lower thorax: Unremarkable. Cephalometric Technician (topogram) images: No additional findings. US ABD [...] healthy appearing mucosa. This was traversed. The sfsfw-ry-aztnkei limb was characterized by healthy appearing mucosa. [...] 40 f bougie). This was traversed. The hzeyh-gj-hmlxhrl limb was characterized by healthy appearing mucosa. [...] * 95th percentile PH IMPEDANCE INSERT ON MEDS 01/07/21 Interpretation / Findings : Abnormal study. [...] ceroid-laden histiocytes. There is no interface activity. Ho-Chunk bile duct branches are identified in nearly [...] MD July 22, 2022 documented in this encounterMedina Hospital05-06-2023 History of Past illness Narrative* Problem Noted Date Resolved Date Intractable nausea and vomiting 06/20/2022 06/23/2022 Acute abdominal pain 12/21/2020 06/23/2022 Obesity 09/03/2020 11/29/2020 Abdominal pain 02/01/2020 04/08/2020 Moderate episode of recurrent major depressive d isorder 11/21/2019 01/03/2020 Obesity, Class II, BMI 35-39.9 10/13/2019 1 Last Assessment & Plan: Assessment: BMI 38.74 documented as of this encounter (statuses as of 07/22/2022) [facility] of Past illness Narrative* Problem Noted Date Resolved Date Intractable nausea and vomiting 06/20/2022 06/23/2022 Acute abdominal pain 12/21/2020 06/23/2022 Obesity 09/03/2020 11/29/2020 Abdominal pain 02/01/2020 04/08/2020 Moderate episode of recurrent major depressive d isorder 11/21/2019 01/03/2020 Obesity, Class II, BMI 35-39.9 10/13/2019 1 Last Assessment & Plan: Assessment: BMI 38.74 documented as of this encounter (statuses as of 07/22/2022) [facility] of Past illness Narrative* Problem Noted Date Resolved Date Intractable nausea and vomiting 06/20/2022 06/23/2022 Acute abdominal pain 12/21/2020 06/23/2022 Obesity 09/03/2020 11/29/2020 Abdominal pain 02/01/2020 04/08/2020 Moderate episode of recurrent major depressive d isorder 11/21/2019 01/03/2020 Obesity, Class II, BMI 35-39.9 10/13/2019 1 Last Assessment & Plan: Assessment: BMI 38.74 documented as of this encounter (statuses as of 07/23/2022) [facility] of Past illness Narrative* Problem Noted Date Resolved Date Intractable nausea and vomiting 06/20/2022 06/23/2022 Acute abdominal pain 12/21/2020 06/23/2022 Obesity 09/03/2020 11/29/2020 Abdominal pain 02/01/2020 04/08/2020 Moderate episode of recurrent major depressive d isorder 11/21/2019 01/03/2020 Obesity, Class II, BMI 35-39.9 10/13/2019 1 Last Assessment & Plan: Assessment: BMI 38.74 documented as of this encounter (statuses as of 07/23/2022) [facility] Narrative* Problem Noted Date Resolved Date Intractable nausea and vomiting 06/20/2022 06/23/2022 Acute abdominal pain 12/21/2020 06/23/2022 Obesity 09/03/2020 11/29/2020 Abdominal pain 02/01/2020 04/08/2020 Moderate episode of recurrent major depressive d isorder 11/21/2019 01/03/2020 Obesity, Class II, BMI 35-39.9 10/13/2019 1 Last Assessment & Plan: Assessment: BMI 38.74 documented as of this encounter (statuses as of 08/03/2022) [facility] of Past illness Narrative* Problem Noted Date Resolved Date Intractable nausea and vomiting 06/20/2022 06/23/2022 Acute abdominal pain 12/21/2020 06/23/2022 Obesity 09/03/2020 11/29/2020 Abdominal pain 02/01/2020 04/08/2020 Moderate episode of recurrent major depressive d isorder 11/21/2019 01/03/2020 Obesity, Class II, BMI 35-39.9 10/13/2019 1 Last Assessment & Plan: Assessment: BMI 38.74 documented as of this encounter (statuses as of 08/06/2022) [facility] Narrative* Problem [...] of this encounter (statuses as of 09/19/2022) [facility] Narrative* Problem [...] of this encounter (statuses as of 09/22/2022) [facility] Narrative* Problem [...] of this encounter (statuses as of 09/28/2022) [facility] Narrative* Problem [...] of this encounter (statuses as of 10/06/2022) [facility] Narrative* Problem [...] of this encounter (statuses as of 10/15/2022) [facility] Narrative* Problem [...] of this encounter (statuses as of 10/21/2022) [facility] Narrative* Problem [...] of this encounter (statuses as of 12/21/2022) [facility] of Present illness Narrative* Aliyah Washburn PA-C - 06/18/2022 9:24 AM EDT Interval [...] advised she may send a message on CH4e if she has any additional questions. Aliyah Washburn PA-C Orthopaedic & Rheumatologic [facility] Date: June 18, 2022 Time: [...] No Swollen Glands: No documented in this encounterMedina Hospital04-28-2023 History of Present illness Narrative* Aliyah Washburn PA-C - 06/12/2022 10:26 AM EDT Images from the original note were not included. Rheumatology Outpatient Clinic Date of Service: 06/12/2022 Patient: Abbey Garcia Medical Record: [id number] Primary Care Physician: Wally Foley MD Last Rheumat[facility] visit: [facility] Referring Provider: HENNY Marcus [address] [facility] [address] [place] [address] Consultation requested by Agustin Valentino for an [...] hypothyroidism. Reports she has not seen her miscellaneous machine operator recently. She reports symptoms are interrupted by [...] 2 Antichromatin nega <0.2 RF negative <10 FIVE ROLL REFINER BATCH MIXER 0.3 SSA <0.2 SSB <0.2 Mc <0.2 05/22/22 Esr 4 Health Maintenance HEPATITIS [...] symmetric on resisted finger separation and hand otr owner operator Knees FROM Ankles FROM No MTP squeeze [...] insufficiency and hypothyroidism. She has not seen miscellaneous machine operator. Would like to rule out endocrine causes [...] which included preparing to see the patient, yqlk-ut-wvfd patient care, completing clinical documentation, obtaining and/or reviewing separately obtained history, performing a medically appropriate examination, counseling and educating the pat ient/family/caregiver, and ordering medications, tests, or procedures. Aliyah Washburn PA-C [facility]umat[facility] Date: June 12, 2022 Time: 10:26 AM documented in this encounterMedina Hospital04-26-2023 Hospital Discharge instructions Patient Education 06/10/2022 [...] you until you feel stable. Medicines Take ouqh-nsl-eggvfdh and prescription medicines only as told by [...] provider. Document Revised: 06/12/2021 Document Reviewed: 06/12/2021 [email or web address] Patient Education 2022 [employer]. 06/10/2022 17:05:57 Nonspecific Chest Pain, Adult Nonspecific [...] Follow these instructions at home: Medicines Take mror-vrb-fwybuly and prescription medicines only as told by [...] provider. Document Revised: 04/17/2021 Document Reviewed: 04/17/2021 [email or web address] Patient Education 2022 [employer]. Follow Up Care 06/10/2022 12:31:10 With:Chetna Jack Address: [address] [place] [phone]- [phone] Business (1) When:06/13/2022 17:03:30 Comments:Schedule event loop recorder as well as echocardiogram with central scheduling and then follow-up with soil specialist Dr. Jack With:Jaquan Morrow Address: [address] [place], [place] [id number]- Business (1) When:06/13/2022 17:03:46 Comments:Call the office [...] you develop any new or worsening symptoms. [facility]01-20-2023 Nurse Note* Eli Carter RN - [...] None REFERRAL (RECOMMENDATION): None documented in this encounterMedina Hospital01-19-2023 Miscellaneous Notes* Telephone Encounter - Victor M Dennis - 03/05/2022 11:54 AM EST Spoke with the patient confirmed 1:45 arrival time for 2:45 appointment at [facility]. Victor M Dennis * Telephone Encounter - Li Kimball RN - 03/05/2022 10:31 AM EST I called patient and left a message with EGD appointment instructions and location. Call back number provided. iL Kimball RN documented in this encounterMedina Hospital01-19-2023 Instructions* Patient Instructions* Breanna Stern APRN.CNP - 03/05/2022 10:18 AM EST I have asked scheduling to add you on for an appointment in 2 months for your regular follow up, we'll check your labs at that time. (I've ordered them, no need to fast) We may need to see you sooner based on results of your EGD documented in this encounterMedina Hospital01-19-2023 History of Present illness Narrative* Breanna SLIM Stern.BETH - 03/05/2022 9:31 AM EST BMI SURGERY [...] Surgeries Date of Surgery Surgeon Procedure 10/13/2019 Decaon Kat MD EGD WITH BIOPSY 04/16/2020 Deacon Peña MD LAPAROSCOPY WITH BIOPSY 03/20/2021 Deacon Kat MD LAPAROSCOPY DIAGNOSTIC 01/29/2022 Deacon Kat MD LAPAROSCOPIC ANTECOLIC ANTEGASTRIC GASTRECTOMY,PARTIAL,WITH TAN-EN-Y RECONSTRUCTION Visit: 17 months Today's Visit: Wt 89.8 kg (198 lb) BMI 31.96 kg/m2 BMI 31.96 kg/(m^2) Last Visit: Wt: 93.4 kg (206 lb) BMI: 33.25 kg/(m^2) Total weight loss: 19.1 kg (42 lb) [place] weight: 70.3 kg (154 lb 14.5 oz) [...] Orders Breanna Stern APRN.BETH documented in this encounterMedina Hospital12-30-2022 History of Present illness Narrative* Kuldip [...] taking tylenol for her pain. PHYSICAL EXAM: [facility] 08/19/2020 General: Appears stated age, well [...] lateral patellar facet. Bilateral PF crepitance IMPRESSION: (S73.191D) Acetabular labrum tear, right, subsequent encounter (primary [...] is eager to see someone through [facility]. We will help her set [...] Past Histories independently gathered by the clinical systems support specialist and the remaining scribed note accurately describes my personal service to the patient. Kuldip Yousif MD documented in this encounterMedina Hospital12-22-2022 Miscellaneous Notes* Telephone Encounter - Li [...] nausea. Li Kimball RN documented in this encounterMedina Hospital12-21-2022 History of Present illness Narrative* Nahed Arzate Dashawn, RD - 02/04/2022 9:24 AM EST [facility] Nutrition Therapy: Virtual Consult - Re-assessment [...] Fusion One a Day multivitamin capsule PLUS 0321-9144 mg calcium citrate daily) 4. Protein goal: 75-93 grams protein/day. 5. Fluid goal: 64oz per day water. (no calories, no caffeine, no carbonation, no alcohol) 6. Call the BMI department at [phone] to schedule your one month post op nutrition visit for February. Link to book as discussed: https://my.[facility].org/-/scassets/files/org/bariatric/guides/bmiguideboo [email or web address]-[email or web address]?la=en Nutrition Monitoring & Evaluation: Adherence to [...] Fusion One a Day multivitamin capsule PLUS 4450-2721 mg calcium citrate 5. Exercise: strive for [...] None Likelihood of Adherence: Moderate Referred/Supervised by: Shey/Marlin FRIAS Billing Type: Re-assess/15 min 1 unit SIGNATURE: Nahed Tamez RD PATIENT NAME: Abbey Garcia DATE: 02/04/2022 TIME: 9:24 AM PAGER: [phone] documented in this encounterMedina Hospital12-20-2022 Instructions* Patient Instructions* Breanna Stern APRN.STORE CUSTODIAN - 02/03/2022 3:42 PM EST Start Omeprazole [...] your activity as tolerated. documented in this encounterMedina Hospital12-20-2022 History of Present illness Narrative* Breanna Stern APRN.BETH - 02/03/2022 2:58 PM EST Assessment BMI [...] Total weight loss: 15.4 kg (34 lb) [place] weight: 70.3 kg (154 lb 14.5 oz) [...] visit. Breanna Stern APRN.BETH documented in this encounterMedina Hospital12-20-2022 Nurse Note* Lucia Ramirez MA - 02/03/2022 2:53 PM EST What is the reason for your visit today? Follow up Who is your referring physician? Are you having poor oral intake? A little Have you had unintentional weight loss of 15 lbs/7 Kg in the last 3-6 months? NO Bowels: regular Wound: Temperature: No Drains: No documented in this encounterMedina Hospital12-20-2022 Miscellaneous Notes* Telephone Encounter - Li [...] 02/03/2022. Li Kimball RN documented in this encounterMedina Hospital12-19-2022 Miscellaneous Notes* Telephone Encounter - Li Kimball RN - 02/02/2022 2:39 PM EST See 02/02/2022 MyChart encounter Li Kimball RN * Telephone Encounter - Olga Paul - 02/02/2022 8:46 AM EST Patient called in and will like a refill on pain medication. Patients pharmacy is the [facility] in [place]. 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 Neuro: No history of TIA's, stroke, [employer] [place] [employer] tumor, impaired sensorium, hemiplegia, paraplegia or quadraplegia. No neurological symptoms or problems. Respiratory: +RICHAR, asthma Negative for COPD, Current cough, Dyspnea, Home O2, Pneumonia within 6 weeks (date), Wheezing Cardiovascular: +hx HTN during /post , resolved. Negative for Recent SD, Angina, CAD, Chest Pain, CHF, DVT/PE GI: [...] 2022 TIME: 11:05 AM documented in this encounterMedina Hospital12-08-2022 Instructions* Patient Instructions* Ioana Hogan PA-C - 01/22/2022 11:55 AM EST PATIENT PREOPERATIVE INSTRUCTIONS Deacon Kat MD has scheduled you for your procedure at this surgery center: [facility]: [phone] --[address] [address]. Please check in on the1st floor at [...] Procedures: - YOU MUST HAVE A RESPONSIBLE CRUCIBLE FURNACE TENDER TAKE YOU HOME. A REAL ESTATE SITE ANALYST OR GREY ROLL WORKER CANNOT BE MADE A RESPONSIBLE CRUCIBLE FURNACE TENDER. - We recommend that a responsible person stays with you overnight to take care of you. - You cannot stay in a hotel alone after outpatient surgery. You will not be permitted to have yoursurgery, if you do not have someone to take care of you. If you already have an Advance Directive, please fax a copy to [phone] or email to for it to be [...] day. Ioana Hogan PA-C documented in this encounterMedina Hospital12-06-2022 Miscellaneous Notes* Telephone Encounter - Li [...] provided. Li Kimball RN documented in this encounterMedina Hospital11-22-2022 Miscellaneous Notes* Telephone Encounter - Li [...] questions. Li Kimball RN documented in this encounterMedina Hospital11-18-2022 Instructions* Patient Instructions* Sabina Joy APRN.BETH - 01/02/2022 11:29 AM EST Images from the original note were not included. Mutually Agreed Upon Goals Eating Plan: Adenyo Pal BRE - Log intake 2 days [...] BRE for meditation - Mindful Moments by [facility]. [place]. Insight Timer https://www.Eurotri/health/mental-health/otj-szfvkwlgzt-afcrtr-android-ap ps#our-picks How can I fix my acid [...] but are usually stronger and faster than H9xsxoekgd. Dietary habits for acid reflux Reduce or [...] Try Breakfast: 1 scrambled egg (75 calories) [place] Citizen muffin (67 calories) Calories per meal: 142 AM Snack & Fluids: *Spread out and sipped between meals 2 cups water (0 calories) 1 cup skim milk or unsweetened soy milk (90 calories) Calories per meal: 90 Lunch: 4 oz canned tuna in water (100 calories) 2 Tbsp fat free ortiz (20 calories) 1 slice low fat Fijian cheese (50 calories) 1 slice whole grain [...] after gastric sleeve surgery? (Full meal plan) (MyTwinPlace) .kml documented in this encounterMedina Hospital11-18-2022 History of Present illness Narrative* Sabina [...] weight loss: 35 lbs or 14.58 % [place] weight: 70.3 kg (154 lb 14.5 oz) [...] which included preparing to see the patient, lunw-rg-uact patient care, completing clinical documentation, obtaining and/or reviewing separately obtained history, performing a medically appropriate examination, counseling and educating the pat ient/family/caregiver, independently interpreting results (not separately reported), and communicating results to the patient/family/caregiver. Follow up in 6 months. This visit was performed virtually due to the COVID-19 epidemic as an effort to protect patients and minimize exposure. documented in this encounterMedina Hospital11-17-2022 History of Present illness Narrative* Marisabel Lnyn LPN - 01/01/2022 2:41 PM EST 2Name: Abbey Garcia [facility]#: [id number] Date: 01/01/2022 HUERTA 48 HR PH FOLLOW-UP The HUERTA monitor was received today via [employer] transport.. Test data from the electromedical equipment technician was downloaded. Events from the patient diary were inserted into the study for physician review. .Marisabel Lynn LPN documented in this encounterMedina Hospital11-10-2022 History of Present illness Narrative* Marisabel Lynn LPN - 12/25/2021 11:28 AM EST Name: Abbey Garcia [facility]#: [id number] Date: 12/25/2021 48hr HUERTA PH CAPSULE PLACEMENT [...] hours. 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 Date of Consent: 12/25/2021 Consent obtained by: Giselle Ford MD A copy of the consent form was given to the consenting democrat and ample time was provided for review. Extensive overview of the study was presented to the individuals above. Potential risks/benefits were reviewed. Alternatives (non-participation) were explained. All questions were answered and understanding was verbalized. The patient wished to proceed. A signed and dated copy of the informed consent was provided to the consenting democrat. Mateusz Kraft, Research Coordinator documented in this encounterMedina Hospital10-05-2022 Miscellaneous Notes* Telephone Encounter - Li Kimball RN - 11/19/2021 10:57 AM EDT I called the patient and left a message for the patient to call [phone], option 0 to schedule the pH Impedence testing. Call back number provided for additional questions or concerns. Li Kimball RN documented in this encounterMedina Hospital10-03-2022 History of Present illness Narrative* Deacon [...] mcg, Iron 45-60 mg and calcium citrate 5375-8158 mg/day PHYSICAL EXAMINATION General appearance: Well appearing, [...] the date of the service which included zowg-as-mvnk patient care, completing clinical documentation, obtaining and/or reviewing separately obtained history, counseling and educating the patient/family/caregiver, and ordering medications, tests, or procedures. Deacon Kat MD documented in this encounterMedina Hospital10-03-2022 Miscellaneous Notes* Telephone Encounter - Grecia Wallace - 11/17/2021 11:21 AM EDT Pharmacy fax requesting refills as follows: Patient scheduled for follow up visit Dec 24 Requested Prescriptions Pending Prescriptions Disp Refills famotidine (PEPCID) 40 mg tablet 90 tablet 1 Sig: Take 1 tablet by mouth once daily. Please review and advise. Grecia Wallace documented in this encounterMedina Hospital09-06-2022 Miscellaneous Notes* Telephone Encounter - Cornel [...] book slots. Cornel Conrad documented in this encounterMedina Hospital09-06-2022 Miscellaneous Notes* Telephone Encounter - Slime Crews - 10/21/2021 8:25 AM EDT Called patient to reschedule 10/[address] Yousif will be out of the office in the afternoon that day. Per Dr. Yousif, patient can be rescheduled at [facility] on 10/21 between 4:15-5:30 PM or on 10/22 in [place] between 4-6 PM. Do not double book slots. documented in this encounterMedina Hospital08-25-2022 Instructions* Patient Instructions* Sabina Joy APRN.BETH - 10/09/2021 3:56 PM EDT Images from the original note were not included. Mutually Agreed Upon Goals Eating Plan: gloStream BRE - Log intake 7 days per week. Replace skipped meals with a protein supplement. Bariatric Plate Method Activity: Walking as tolerated. Chair exercises Sleep: No electronic for 30 minutes prior to sleep 2 nights per week. Practice Sleep Hygiene. CPAP nightly Stress: BRE for meditation - Mindful Moments by [facility] WellnessRenetta De La Torre Insight Timer https://www.Eurotri/health/mental-health/qlv-tltvfermna-fqfqiv-android-ap ps#our-picks Steps to Follow Bariatric Plate Total [...] own fruit infused price >> lemon or [place] with oranges, blackberries, strawberries and fresh mint, [...] with food. Calcium Citrate with Vitamin D 4188-2354 mg calcium - DO NOT TAKE WITH IRON OR MULTIVITAMIN Vitamin D3 - take 3,000 international unit(s) per day from all sources documented in this encounterMedina Hospital08-25-2022 History of Present illness Narrative* Sabina [...] 32.28 kg/(m^2) Total weight loss: 42 lbs [place] weight: 70.3 kg (154 lb 14.5 oz) [...] which included preparing to see the patient, cydt-hk-datw patient care, completing clinical documentation, obtaining and/or reviewing separately obtained history, performing a medically appropriate examination, counseling and educating the pat ient/family/caregiver, ordering medications, tests, or procedures, independently interpreting results (not separately reported), and communicating results to the patient/family/caregiver. Medical Decision Making: Level: 1 - N/A Sabina Joy APRN.BETH documented in this encounterMed[facility] Hospital Discharge instructions* Discharge Instructions* Pablo Atwood DO - 08/30/2021 4:11 AM EDT Please take all medications as prescribed and follow-up with your oral surgeon on Wednesday as scheduled. * Attachments The following attachments cannot be sent through Care Everywhere. * Tooth: Abscessed ([place] Citizen) [facility] [employer] Work Phone: [phone]) 908-144907-15-2022 Miscellaneous Notes* Telephone Encounter - Justine Shabazz PA-C - 08/29/2021 2:55 PM EDT Pharmacy generated request, refill not appropriate. Justine Shabazz PA-C documented in this encounterMedina Hospital07-15-2022 Instructions* Patient Instructions* Justine Shabazz PA-C [...] and carry free weights documented in this encounterMedina Hospital07-15-2022 History of Present illness Narrative* Justine Shabazz PA-C - 08/29/2021 2:16 PM EDT POST OP DISTANCE HEALTH VIRTUAL VISIT DOCUMENTATION NOTE This virtual visit was performed via video enabled technology, and the patient provided consent to be evaluated and managed using this virtual visit and video enabled technology. [employer] Platform: One [employer] Virtual Visit People present : Justine Shabazz [...] Nica Shabazz, MS, PA-C documented in this encounterMedina Hospital07-14-2022 Instructions* Patient Instructions* Xiomara Martinez RD [...] Fusion One a Day multivitamin capsule PLUS 2239-1631 mg calcium citrate 5. Exercise: strive for [...] or sooner if needed documented in this encounterMedina Hospital07-14-2022 History of Present illness Narrative* Xiomara Martinez RD - 08/28/2021 7:54 AM EDT [facility] Nutrition Therapy: Virtual Consult Re-assessment This [...] Fluids: water (64 oz), gatorade zero, Body [place] light Exercise: limited to PT due to [...] Rate: 1635 Energy needs for weight loss 9281-5304 (15-20 carina/kg current weight) Protein needs: 75-93 [...] Fusion One a Day multivitamin capsule PLUS 3571-4604 mg calcium citrate 5. Exercise: strive for [...] by: Xiomara Martinez RD documented in this encounterMedina Hospital07-08-2022 Evaluation note* Encounter Date Diagnosis Assessment Notes Treatment Notes Treatment Clinical Notes Aug, PTSD (post-traumatic stress disorder) (ICD-10 - F43.10) [employer] Other 07-08-2022 Miscellaneous Notes* Telephone Encounter - Grecia Wallace - 08/22/2021 10:40 AM EDT Pharmacy fax requesting refills as follows: patient has a follow up visit 09/24/21 Pending Prescriptions Disp Refills OMEPRAZOLE 40 MG CAPSULE,DELAYED RELEASE 60 capsule 0 Sig: Take 1 capsule by mouth twice daily. ELIJAH: No Please review and advise. Grecia Wallace documented in this encounterMedina Hospital07-03-2022 Evaluation note* Encounter Date Diagnosis Assessment [...] system will be more sensitive than normal. [employer] Other 06-30-2022 Miscellaneous Notes* Telephone Encounter - Justine Shabazz PA-C - 08/14/2021 2:51 PM EDT Pharmacy generated request, refill not appropriate. Justine Shabazz PA-C documented in this encounterMedina Hospital06-17-2022 Instructions* Patient Instructions* Justine Shabazz PA-C [...] hyperextension(moving leg backward) and letting your feet youth court judge when standing or laying flat- until 3 [...] others. Follow-up: 4 weeks documented in this encounterMedina Hospital06-17-2022 History of Present illness Narrative* Justine Shabazz PA-C - 08/01/2021 10:55 AM EDT POST OP DISTANCE HEALTH VIRTUAL VISIT DOCUMENTATION NOTE This virtual visit was performed via video enabled technology, and the patient provided consent to be evaluated and managed using this virtual visit and video enabled technology. Distance Health Platform: Pull Zoom Virtual Visit People present : Justine Shabazz PA-C and Patient Time Spent for video encounter, record review and documentation: 15 minutes CHIEF COMPLAINT (CC): Post op right hip HISTORY OF PRESENT ILLNESS (HPI): 3 weeks s/p 1. right hip arthroscopy. 2. Acetabuloplasty CPT 40450 3. Labral repair. CPT 14133 4. Femoroplasty. CPT 42027 5. Capsular Closure DOS: 08/10/21 Denies systemic [...] will review MRI right knee (uploaded in [employer]). She has been referredto physician in [place] [...] hyperextension(moving leg backward) and letting your feet youth court judge when standing or laying flat- until 3 [...] others. Follow-up: 4 weeks Justine Shabazz MS, GABRIELLA documented in this encounterMedina Hospital05-20-2022 History of Present illness Narrative* Justine Shabazz PA-C - 07/04/2021 10:59 AM EDT AMBULATORY TELEPHONE VISIT Abbey Garcia has consented to this telephone encounter. Persons Present: patient Chief Complaint/Reason: Pre op right hip HPI: 31 y/o female scheduled for right hip arthroscopy with Dr [place]ous[place] [facility] [place] 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 Pre op instructions sent via [employer]. DONAVAN Douglas documented in this encounterMedina Hospital05-04-2022 History of Present illness Narrative* Kuldip Yousif MD - 06/18/2021 11:00 AM EDT x * Kuldip Yousif MD - 06/18/2021 10:23 AM EDT Images from the original note were not included. DEPARTMENT OF ORTHOPAEDICS Consultation as a request of Shanna June NP [address] [place] [address] Chief Complaint: Right hip pain HISTORY OF [...] Bilateral arthroscopic knee surgery- was catcher in [facility] PICC LINE INSERT/CONSULT 12/24/2020 VAGINAL DELIVERY AFTER [...] No history of dysuria, frequency or incontinence ORGANIZATION DEVELOPMENT CONSULTANT: Negative for abnormal vaginal bleeding, abnormal vaginal [...] Past Histories independently gathered by the clinical systems support specialist and the remaining scribed note accurately describes my personal service to the patient. Kuldip Yousif MD documented in this encounterMedina Hospital04-18-2022 History of Present illness Narrative* Lucie [...] to that time. [facility] * Encounter Date Diagnosis Assessment [...] intake. Mar, Other Asthma material was printed [employer] Other 12-14-2021 Evaluation note* Encounter Date Diagnosis [...] to be seen. Also always know the [facility] Emergency Number is 24 hours a day [...] surgeon after discussing options and treatment locations. [employer] Other 07-20-2021 History of Past illness Narrative* Problem Noted Date Resolved Date Obesity 09/03/2020 11/29/2020 Abdominal pain 02/01/2020 04/08/2020 Moderate episode of recurrent major depressive d isorder 11/21/2019 01/03/2020 Obesity, Class II, BMI 35-39.9 10/13/2019 1 Last Assessment & Plan: Assessment: BMI 38.74 documented as of this encounter (statuses as of 06/18/2021) [facility] of [facility] Narrative* Problem Noted Date Resolved Date Obesity 09/03/2020 11/29/2020 Abdominal pain 02/01/2020 04/08/2020 Moderate episode of recurrent major depressive d isorder 11/21/2019 01/03/2020 Obesity, Class II, BMI 35-39.9 10/13/2019 1 Last Assessment & Plan: Assessment: BMI 38.74 documented as of this encounter (statuses as of 06/23/2021) [address]20-2021 History of Past illness Narrative* Problem Noted Date Resolved Date Obesity 09/03/2020 11/29/2020 Abdominal pain 02/01/2020 04/08/2020 Moderate episode of recurrent major depressive d isorder 11/21/2019 01/03/2020 Obesity, Class II, BMI 35-39.9 10/13/2019 1 Last Assessment & Plan: Assessment: BMI 38.74 documented as of this encounter (statuses as of 07/09/2021) [facility] Narrative* Problem Noted Date Resolved Date Obesity 09/03/2020 11/29/2020 Abdominal pain 02/01/2020 04/08/2020 Moderate episode of recurrent major depressive d isorder 11/21/2019 01/03/2020 Obesity, Class II, BMI 35-39.9 10/13/2019 1 Last Assessment & Plan: Assessment: BMI 38.74 documented as of this encounter (statuses as of 07/15/2021) [facility] Narrative* Problem Noted Date Resolved Date Obesity 09/03/2020 11/29/2020 Abdominal pain 02/01/2020 04/08/2020 Moderate episode of recurrent major depressive d isorder 11/21/2019 01/03/2020 Obesity, Class II, BMI 35-39.9 10/13/2019 1 Last Assessment & Plan: Assessment: BMI 38.74 documented as of this encounter (statuses as of 07/28/2021) [facility] Narrative* Problem Noted Date Resolved Date Obesity 09/03/2020 11/29/2020 Abdominal pain 02/01/2020 04/08/2020 Moderate episode of recurrent major depressive d isorder 11/21/2019 01/03/2020 Obesity, Class II, BMI 35-39.9 10/13/2019 1 Last Assessment & Plan: Assessment: BMI 38.74 documented as of this encounter (statuses as of 08/01/2021) [address]20-2021 History of Past illness Narrative* Problem Noted Date Resolved Date Obesity 09/03/2020 11/29/2020 Abdominal pain 02/01/2020 04/08/2020 Moderate episode of recurrent major depressive d isorder 11/21/2019 01/03/2020 Obesity, Class II, BMI 35-39.9 10/13/2019 1 Last Assessment & Plan: Assessment: BMI 38.74 documented as of this encounter (statuses as of 08/14/2021) [facility] Narrative* Problem Noted Date Resolved Date Obesity 09/03/2020 11/29/2020 Abdominal pain 02/01/2020 04/08/2020 Moderate episode of recurrent major depressive d isorder 11/21/2019 01/03/2020 Obesity, Class II, BMI 35-39.9 10/13/2019 1 Last Assessment & Plan: Assessment: BMI 38.74 documented as of this encounter (statuses as of 08/22/2021) [address]20-2021 History of Past illness Narrative* Problem Noted Date Resolved Date Obesity 09/03/2020 11/29/2020 Abdominal pain 02/01/2020 04/08/2020 Moderate episode of recurrent major depressive d isorder 11/21/2019 01/03/2020 Obesity, Class II, BMI 35-39.9 10/13/2019 1 Last Assessment & Plan: Assessment: BMI 38.74 documented as of this encounter (statuses as of 08/28/2021) [facility] Narrative* Problem Noted Date Resolved Date Obesity 09/03/2020 11/29/2020 Abdominal pain 02/01/2020 04/08/2020 Moderate episode of recurrent major depressive d isorder 11/21/2019 01/03/2020 Obesity, Class II, BMI 35-39.9 10/13/2019 1 Last Assessment & Plan: Assessment: BMI 38.74 documented as of this encounter (statuses as of 08/29/2021) [address]20-2021 History of Past illness Narrative* Problem Noted Date Resolved Date Obesity 09/03/2020 11/29/2020 Abdominal pain 02/01/2020 04/08/2020 Moderate episode of recurrent major depressive d isorder 11/21/2019 01/03/2020 Obesity, Class II, BMI 35-39.9 10/13/2019 1 Last Assessment & Plan: Assessment: BMI 38.74 documented as of this encounter (statuses as of 08/29/2021) [facility] Narrative* Problem Noted Date Resolved Date Obesity 09/03/2020 11/29/2020 Abdominal pain 02/01/2020 04/08/2020 Moderate episode of recurrent major depressive d isorder 11/21/2019 01/03/2020 Obesity, Class II, BMI 35-39.9 10/13/2019 1 Last Assessment & Plan: Assessment: BMI 38.74 documented as of this encounter (statuses as of 09/02/2021) [address]20-2021 History of Past illness Narrative* Problem Noted Date Resolved Date Obesity 09/03/2020 11/29/2020 Abdominal pain 02/01/2020 04/08/2020 Moderate episode of recurrent major depressive d isorder 11/21/2019 01/03/2020 Obesity, Class II, BMI 35-39.9 10/13/2019 1 Last Assessment & Plan: Assessment: BMI 38.74 documented as of this encounter (statuses as of 10/09/2021) [facility] Narrative* Problem Noted Date Resolved Date Obesity 09/03/2020 11/29/2020 Abdominal pain 02/01/2020 04/08/2020 Moderate episode of recurrent major depressive d isorder 11/21/2019 01/03/2020 Obesity, Class II, BMI 35-39.9 10/13/2019 1 Last Assessment & Plan: Assessment: BMI 38.74 documented as of this encounter (statuses as of 10/09/2021) [facility] Narrative* Problem Noted Date Resolved Date Obesity 09/03/2020 11/29/2020 Abdominal pain 02/01/2020 04/08/2020 Moderate episode of recurrent major depressive d isorder 11/21/2019 01/03/2020 Obesity, Class II, BMI 35-39.9 10/13/2019 1 Last Assessment & Plan: Assessment: BMI 38.74 documented as of this encounter (statuses as of 10/21/2021) [facility] Narrative* Problem Noted Date Resolved Date Obesity 09/03/2020 11/29/2020 Abdominal pain 02/01/2020 04/08/2020 Moderate episode of recurrent major depressive d isorder 11/21/2019 01/03/2020 Obesity, Class II, BMI 35-39.9 10/13/2019 1 Last Assessment & Plan: Assessment: BMI 38.74 documented as of this encounter (statuses as of 11/18/2021) [facility] Narrative* Problem Noted Date Resolved Date Obesity 09/03/2020 11/29/2020 Abdominal pain 02/01/2020 04/08/2020 Moderate episode of recurrent major depressive d isorder 11/21/2019 01/03/2020 Obesity, Class II, BMI 35-39.9 10/13/2019 1 Last Assessment & Plan: Assessment: BMI 38.74 documented as of this encounter (statuses as of 11/18/2021) [facility] Narrative* Problem Noted Date Resolved Date Obesity 09/03/2020 11/29/2020 Abdominal pain 02/01/2020 04/08/2020 Moderate episode of recurrent major depressive d isorder 11/21/2019 01/03/2020 Obesity, Class II, BMI 35-39.9 10/13/2019 1 Last Assessment & Plan: Assessment: BMI 38.74 documented as of this encounter (statuses as of 11/19/2021) [facility] Narrative* Problem Noted Date Resolved Date Obesity 09/03/2020 11/29/2020 Abdominal pain 02/01/2020 04/08/2020 Moderate episode of recurrent major depressive d isorder 11/21/2019 01/03/2020 Obesity, Class II, BMI 35-39.9 10/13/2019 1 Last Assessment & Plan: Assessment: BMI 38.74 documented as of this encounter (statuses as of 11/19/2021) [facility] Narrative* Problem Noted Date Resolved Date Obesity 09/03/2020 11/29/2020 Abdominal pain 02/01/2020 04/08/2020 Moderate episode of recurrent major depressive d isorder 11/21/2019 01/03/2020 Obesity, Class II, BMI 35-39.9 10/13/2019 1 Last Assessment & Plan: Assessment: BMI 38.74 documented as of this encounter (statuses as of 12/17/2021) [facility] Narrative* Problem Noted Date Resolved Date Obesity 09/03/2020 11/29/2020 Abdominal pain 02/01/2020 04/08/2020 Moderate episode of recurrent major depressive d isorder 11/21/2019 01/03/2020 Obesity, Class II, BMI 35-39.9 10/13/2019 1 Last Assessment & Plan: Assessment: BMI 38.74 documented as of this encounter (statuses as of 12/25/2021) [facility] Narrative* Problem Noted Date Resolved Date Obesity 09/03/2020 11/29/2020 Abdominal pain 02/01/2020 04/08/2020 Moderate episode of recurrent major depressive d isorder 11/21/2019 01/03/2020 Obesity, Class II, BMI 35-39.9 10/13/2019 1 Last Assessment & Plan: Assessment: BMI 38.74 documented as of this encounter (statuses as of 12/25/2021) [facility] Narrative* Problem Noted Date Resolved Date Obesity 09/03/2020 11/29/2020 Abdominal pain 02/01/2020 04/08/2020 Moderate episode of recurrent major depressive d isorder 11/21/2019 01/03/2020 Obesity, Class II, BMI 35-39.9 10/13/2019 1 Last Assessment & Plan: Assessment: BMI 38.74 documented as of this encounter (statuses as of 12/25/2021) [facility] Narrative* Problem Noted Date Resolved Date Obesity 09/03/2020 11/29/2020 Abdominal pain 02/01/2020 04/08/2020 Moderate episode of recurrent major depressive d isorder 11/21/2019 01/03/2020 Obesity, Class II, BMI 35-39.9 10/13/2019 1 Last Assessment & Plan: Assessment: BMI 38.74 documented as of this encounter (statuses as of 12/26/2021) [facility] Narrative* Problem Noted Date Resolved Date Obesity 09/03/2020 11/29/2020 Abdominal pain 02/01/2020 04/08/2020 Moderate episode of recurrent major depressive d isorder 11/21/2019 01/03/2020 Obesity, Class II, BMI 35-39.9 10/13/2019 1 Last Assessment & Plan: Assessment: BMI 38.74 documented as of this encounter (statuses as of 01/01/2022) [facility] Narrative* Problem Noted Date Resolved Date Obesity 09/03/2020 11/29/2020 Abdominal pain 02/01/2020 04/08/2020 Moderate episode of recurrent major depressive d isorder 11/21/2019 01/03/2020 Obesity, Class II, BMI 35-39.9 10/13/2019 1 Last Assessment & Plan: Assessment: BMI 38.74 documented as of this encounter (statuses as of 01/02/2022) [facility] Narrative* Problem Noted Date Resolved Date Obesity 09/03/2020 11/29/2020 Abdominal pain 02/01/2020 04/08/2020 Moderate episode of recurrent major depressive d isorder 11/21/2019 01/03/2020 Obesity, Class II, BMI 35-39.9 10/13/2019 1 Last Assessment & Plan: Assessment: BMI 38.74 documented as of this encounter (statuses as of 01/06/2022) [facility] Narrative* Problem Noted Date Resolved Date Obesity 09/03/2020 11/29/2020 Abdominal pain 02/01/2020 04/08/2020 Moderate episode of recurrent major depressive d isorder 11/21/2019 01/03/2020 Obesity, Class II, BMI 35-39.9 10/13/2019 1 Last Assessment & Plan: Assessment: BMI 38.74 documented as of this encounter (statuses as of 01/20/2022) [facility] Narrative* Problem Noted Date Resolved Date Obesity 09/03/2020 11/29/2020 Abdominal pain 02/01/2020 04/08/2020 Moderate episode of recurrent major depressive d isorder 11/21/2019 01/03/2020 Obesity, Class II, BMI 35-39.9 10/13/2019 1 Last Assessment & Plan: Assessment: BMI 38.74 documented as of this encounter (statuses as of 01/28/2022) [facility] Narrative* Problem Noted Date Resolved Date Obesity 09/03/2020 11/29/2020 Abdominal pain 02/01/2020 04/08/2020 Moderate episode of recurrent major depressive d isorder 11/21/2019 01/03/2020 Obesity, Class II, BMI 35-39.9 10/13/2019 1 Last Assessment & Plan: Assessment: BMI 38.74 documented as of this encounter (statuses as of 02/02/2022) [facility] Narrative* Problem Noted Date Resolved Date Obesity 09/03/2020 11/29/2020 Abdominal pain 02/01/2020 04/08/2020 Moderate episode of recurrent major depressive d isorder 11/21/2019 01/03/2020 Obesity, Class II, BMI 35-39.9 10/13/2019 1 Last Assessment & Plan: Assessment: BMI 38.74 documented as of this encounter (statuses as of 02/02/2022) [facility] N[facility]* Problem Noted Date Resolved Date Obesity 09/03/2020 11/29/2020 Abdominal pain 02/01/2020 04/08/2020 Moderate episode of recurrent major depressive d isorder 11/21/2019 01/03/2020 Obesity, Class II, BMI 35-39.9 10/13/2019 1 Last Assessment & Plan: Assessment: BMI 38.74 documented as of this encounter (statuses as of 02/03/2022) [facility] Narrative* Problem Noted Date Resolved Date Obesity 09/03/2020 11/29/2020 Abdominal pain 02/01/2020 04/08/2020 Moderate episode of recurrent major depressive d isorder 11/21/2019 01/03/2020 Obesity, Class II, BMI 35-39.9 10/13/2019 1 Last Assessment & Plan: Assessment: BMI 38.74 documented as of this encounter (statuses as of 02/03/2022) [address]20-2021 History of Past illness Narrative* Problem Noted Date Resolved Date Obesity 09/03/2020 11/29/2020 Abdominal pain 02/01/2020 04/08/2020 Moderate episode of recurrent major depressive d isorder 11/21/2019 01/03/2020 Obesity, Class II, BMI 35-39.9 10/13/2019 1 Last Assessment & Plan: Assessment: BMI 38.74 documented as of this encounter (statuses as of 02/04/2022) [facility] Narrative* Problem Noted Date Resolved Date Obesity 09/03/2020 11/29/2020 Abdominal pain 02/01/2020 04/08/2020 Moderate episode of recurrent major depressive d isorder 11/21/2019 01/03/2020 Obesity, Class II, BMI 35-39.9 10/13/2019 1 Last Assessment & Plan: Assessment: BMI 38.74 documented as of this encounter (statuses as of 02/06/2022) [facility] Narrative* Problem Noted Date Resolved Date Obesity 09/03/2020 11/29/2020 Abdominal pain 02/01/2020 04/08/2020 Moderate episode of recurrent major depressive d isorder 11/21/2019 01/03/2020 Obesity, Class II, BMI 35-39.9 10/13/2019 1 Last Assessment & Plan: Assessment: BMI 38.74 documented as of this encounter (statuses as of 02/15/2022) [address]20-2021 History of Past illness Narrative* Problem Noted Date Resolved Date Obesity 09/03/2020 11/29/2020 Abdominal pain 02/01/2020 04/08/2020 Moderate episode of recurrent major depressive d isorder 11/21/2019 01/03/2020 Obesity, Class II, BMI 35-39.9 10/13/2019 1 Last Assessment & Plan: Assessment: BMI 38.74 documented as of this encounter (statuses as of 02/18/2022) [address]20-2021 History of Past illness Narrative* Problem Noted Date Resolved Date Obesity 09/03/2020 11/29/2020 Abdominal pain 02/01/2020 04/08/2020 Moderate episode of recurrent major depressive d isorder 11/21/2019 01/03/2020 Obesity, Class II, BMI 35-39.9 10/13/2019 1 Last Assessment & Plan: Assessment: BMI 38.74 documented as of this encounter (statuses as of 03/05/2022) [address]20-2021 History of Past illness Narrative* Problem Noted Date Resolved Date Obesity 09/03/2020 11/29/2020 Abdominal pain 02/01/2020 04/08/2020 Moderate episode of recurrent major depressive d isorder 11/21/2019 01/03/2020 Obesity, Class II, BMI 35-39.9 10/13/2019 1 Last Assessment & Plan: Assessment: BMI 38.74 documented as of this encounter (statuses as of 03/05/2022) [address]20-2021 History of Past illness Narrative* Problem Noted Date Resolved Date Obesity 09/03/2020 11/29/2020 Abdominal pain 02/01/2020 04/08/2020 Moderate episode of recurrent major depressive d isorder 11/21/2019 01/03/2020 Obesity, Class II, BMI 35-39.9 10/13/2019 1 Last Assessment & Plan: Assessment: BMI 38.74 documented as of this encounter (statuses as of 03/07/2022) [facility]arr[facility]* Problem Noted Date Resolved Date Obesity 09/03/2020 11/29/2020 Abdominal pain 02/01/2020 04/08/2020 Moderate episode of recurrent major depressive d isorder 11/21/2019 01/03/2020 Obesity, Class II, BMI 35-39.9 10/13/2019 1 Last Assessment & Plan: Assessment: BMI 38.74 documented as of this encounter (statuses as of 03/30/2022) [facility] Narrative* Problem Noted Date Resolved Date Obesity 09/03/2020 11/29/2020 Abdominal pain 02/01/2020 04/08/2020 Moderate episode of recurrent major depressive d isorder 11/21/2019 01/03/2020 Obesity, Class II, BMI 35-39.9 10/13/2019 1 Last Assessment & Plan: Assessment: BMI 38.74 documented as of this encounter (statuses as of 06/14/2022) [facility]arrative* Problem Noted Date Resolved Date Obesity 09/03/2020 11/29/2020 Abdominal pain 02/01/2020 04/08/2020 Moderate episode of recurrent major depressive d isorder 11/21/2019 01/03/2020 Obesity, Class II, BMI 35-39.9 10/13/2019 1 Last Assessment & Plan: Assessment: BMI 38.74 documented as of this encounter (statuses as of 06/18/2022) [facility]05-18-2021 Emergency department Note* Nabila Childs RN [...] 07/02/2020 2:36 PM EDT Emergency Department Report [facility] EMERGENCY DEPARTMENT Service Date:.07/02/20 PCP: [...] Social Gatherings with Friends and Family: Attends Congregation Services: Active Member of Clubs or Organizations: [...] POSITIVE ANTIBODY SCREEN NEGATIVE ARM BAND NUMBER [id number] URINALYSIS, MACRO Result Value Ref Range COLOR, [...] H&H is stable. She was started on Scandia and Zofran. Follow up with her [facility]ER. Chart was 5 to the CHICKEN PICKER's office. 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 She is discharged [...] bleeding with large clots [facility] + Plan note Future Appointments Appointment Date:07/23/2022 01:00:00 PM Scheduled Provider: Location:FT.[facility]IO Appointment Type:CV Echo (FT) Appointment Date:09/07/2022 11:00:00 AM Scheduled Provider:Jamil PRICE MD [facility] Type:[facility]O New Patient Future Scheduled Tests Radiology* US Renal 06/10/22 * Echo Transthoracic Complete 07/23/22 [facility]05-24-[facility] Evaluation + Plan note Future Appointments Appointment Date:07/07/2022 11:00:00 AM Scheduled Provider: [facility] Type:CV Echo (FT) Appointment Date:07/08/2022 01:00:00 PM Scheduled Provider:Chetna Jack MD [facility] Type:Cardiology New Patient (FT) Future Scheduled Tests Radiology* US Renal 06/10/22 * Echo Transthoracic [facility]07[facility] App[facility]ments Appointment Date:06/11/2022 03:00:00 PM Scheduled Provider:Chetna Jack MD [facility] Type:Cardiology New Patient (FT) Future Scheduled Tests Radiology* US Renal [facility]10[facility] Future Appointments Appointment Date:09/07/2022 11:00:00 AM Scheduled Provider:Jamil PRICE MD Location:[facility] Appointment Type:URO New Patient Future Scheduled Tests Radiology* US Renal [facility]10/[facility] Future Appointments Appointment Date:01/20/2023 10:00:00 AM Scheduled Provider:Rajni Rouse MD [facility] Type:URO Office Visit Future Scheduled Tests Radiology* US Renal 06/10/22 [facility] evaluation + Plan note Future Appointments Appointment Date:10/21/2022 02:20:00 PM Scheduled Provider:Jaquan Paula [facility]: ER/Hospital Follow Up Appointment Date:11/20/2022 02:40:00 PM Scheduled Provider: [facility] Lab Draw Appointment Date:01/20/2023 10:00:00 AM Scheduled Provider:Rajni Rouse MD [facility] App[facility] Type:URO Office Visit Future Scheduled Tests Laboratory* T3 Free 10/07/22 * Thyroid Stimulating Hormone 10/07/22 * Free T4 10/07/22 Radiology* [facility] Future Appointments Appointment Date:11/19/2022 02:30:00 PM Scheduled Provider:Odilon Strange MD [facility] Appointment Type:Cardiology New Patient (FT) Appointment Date:01/20/2023 10:00:00 AM Scheduled Provider:Rajni Rouse MD Location:[facility] Appointment Type:URO Office Visit Future Scheduled Tests Radiology* US Renal [facility]10/22 [facility] Future Appointments Appointment Date:07/13/2023 08:20:00 AM Scheduled Provider:OLGA GATICA PA-C Location:[facility] Appointment Type:URO Office Visit Appointment Date:08/04/2023 09:45:00 AM Scheduled Provider:Rajni Rouse MD Location:[facility] Appointment Type:URO Office Visit Future Scheduled Tests Radiology* US Renal 06/10/22 [facility] note* Diagnosis Complex ovarian cyst- Primary Other and unspecified ovarian cyst Uterine leiomyoma, unspecified location [facility] Diagnosis Contusion of right thumb without damage to nail, initial encounter- Primary documented in this encounter [employer] Phone: evaluation note* Diagnosis 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 documented in this encounter [facility] note* Diagnosis Acetabular labrum tear, right, initial encounter- Primary documented in this encounter [facility] note* Diagnosis Tear of right acetabular labrum, subsequent encounter- Primary documented in this encounter [facility] note* Diagnosis Tear of right acetabular labrum, subsequent encounter- Primary Tear of right acetabular labrum, subsequent encounter documented in this encounter [facility] note* Diagnosis Generalized abdominal pain- Primary Abdominal pain, generalized documented in this encounter [facility] [employer] Phone: evaluation note* Diagnosis Tear of right acetabular labrum, subsequent encounter- Primary documented in this encounter [facility] noteNort [email or web address] Other [facility] noteNo InformationNoMarkado Other [facility]* Diagnosis S/P laparoscopic sleeve gastrectomy- Primary Bariatric surgery status Obesity, Class I, BMI 30-34.9 Obesity, unspecified Dietary counseling and surveillance Dietary surveillance and counseling documented in this encounter [facility] note* Diagnosis Tear of right acetabular labrum, subsequent encounter- Primary documented in this encounter [facility] note* Diagnosis Dental infection- Primary Acute apical periodontitis of pulpal origin documented in this encounter [facility] [employer] Phone: evaluation note* Diagnosis Gastroesophageal reflux disease, unspecified whether esophagitis present- Primary Bariatric surgery status Weight disorder Other symptoms concerning nutrition, metabolism, and development Class 1 obesity with serious comorbidity and body mass index (BMI) of 31.0 to 31.9 in adult, unspecified obesity type S/P laparoscopic sleeve gastrectomy Bariatric surgery status Dietary counseling and surveillance Dietary surveillance and counseling documented in this encounter [facility] note* Diagnosis Gastroesophageal reflux disease without esophagitis- Primary Esophageal reflux documented in this encounter [facility] note* Diagnosis Gastroesophageal reflux disease without esophagitis- Primary Esophageal reflux S/P laparoscopic sleeve gastrectomy Bariatric surgery status documented in this encounter [facility] note* Diagnosis Regurgitation of food- Primary Gastroesophageal reflux disease, unspecified whether esophagitis present documented in this encounter [facility] note* Diagnosis Regurgitation of food Gastroesophageal reflux disease, unspecified whether esophagitis present documented in this encounter [facility] note* Diagnosis Gastroesophageal reflux disease without esophagitis Esophageal reflux documented in this encounter [facility] note* Diagnosis Gastroesophageal reflux disease, unspecified whether esophagitis present- Primary documented in this encounter [facility] note* Diagnosis Gastroesophageal reflux disease with esophagitis without hemorrhage- Primary RICHAR (obstructive sleep apnea) Obstructive sleep apnea (adult) (pediatric) Class 1 obesity with serious comorbidity and body mass index (BMI) of 33.0 to 33.9 in adult, unspecified obesity type S/P laparoscopic sleeve gastrectomy Bariatric surgery status Weight disorder Other symptoms concerning nutrition, metabolism, and development documented in this encounter [facility] note* Diagnosis Pre-op evaluation- Primary Preoperative examination, [...] esophagitis without hemorrhage [facility]* Diagnosis S/P bariatric surgery- Primary Bariatric surgery status Postoperative pain Other acute postoperative pain Primary osteoarthritis involving multiple joints [facility] Diagnosis S/P gastric surgery- Primary Other postprocedural status Dietary counseling Dietary surveillance and counseling documented [facility]* Diagnosis Postoperative pain Other acute postoperative pain documented [facility]* Diagnosis Acetabular labrum tear, right, subsequent encounter- Primary documented [facility]* Diagnosis Esophageal dysphagia- Primary Dysphagia, pharyngoesophageal phase S/P gastric bypass Bariatric surgery status Postoperative malabsorption Other and unspecified postsurgical nonabsorption [facility]* Diagnosis Esophageal dysphagia Dysphagia, pharyngoesophageal phase S/P gastric bypass Bariatric surgery status S/P bariatric surgery Bariatric surgery status documented [facility]* Diagnosis Polyarthralgia- Primary Pain in joint, multiple sites Malaise and fatigue Other malaise and fatigue Subjective fever S/P laparoscopic sleeve gastrectomy Bariatric surgery status History of syncope Other specified personal history presenting hazards to health History of adrenal insufficiency Personal history of other endocrine, metabolic, and immunity disorders Hypothyroidism, unspecified type [facility] Diagnosis Encounter to discuss test results- Primary Other specified counseling NO SHOW [facility]* Diagnosis Constipation, unspecified constipation type- Primary Nausea Nausea alone Rash of face Rash and other nonspecific skin eruption Enlarged lymph nodes Enlargement of lymph nodes documented [facility]* Diagnosis Vernal conjunctivitis of both eyes- Primary documented [facility] this [facility]* Diagnosis Rash and nonspecific skin eruption- Primary Rash and other nonspecific skin eruption Pain in eye, unspecified laterality Facial edema Edema documented [facility] this [facility]* Diagnosis Encounter for surgical aftercare following surgery of digestive system- Primary Aftercare following surgery of the teeth, oral cavity and digestive system, NEC Impaired intestinal absorption Unspecified intestinal malabsorption Esophageal dysphagia Dysphagia, pharyngoesophageal phase Gastroesophageal reflux disease, unspecified whether esophagitis present S/P bariatric surgery Bariatric surgery status documented in this encounter [facility] note* Diagnosis ARSALAN (generalized anxiety disorder)- Primary Generalized anxiety disorder Panic disorder without agoraphobia Moderate recurrent major depression (HCC) Major depressive disorder, recurrent episode, moderate documented in this encounter [facility] note* Diagnosis Postoperative malabsorption- Primary Other and unspecified postsurgical nonabsorption S/P gastric bypass Bariatric surgery status Overweight (BMI 25.0-29.9) Overweight Dietary counseling and surveillance Dietary surveillance and counseling documented in this encounter [facility] note* Diagnosis ARSALAN (generalized anxiety disorder)- Primary Generalized anxiety disorder Panic disorder without agoraphobia Moderate recurrent major depression (HCC) Major depressive disorder, recurrent episode, moderate documented in this encounter [facility] note* Diagnosis Epigastric pain- Primary Abdominal pain, epigastric documented in this encounter [facility] note* Diagnosis Back strain, initial encounter- Primary documented in this encounter [facility] note* Diagnosis Generalized abdominal pain- Primary Abdominal pain, generalized documented in this encounter [facility] note* Diagnosis Nausea- Primary Nausea alone documented in this encounter [facility] note* Diagnosis Gastroesophageal reflux disease, unspecified whether esophagitis present documented in this encounter [facility] note* Diagnosis Generalized anxiety disorder documented in this encounter [facility] note* Diagnosis Nausea- Primary Nausea alone RUQ pain Abdominal pain, right upper quadrant History of cholecystectomy Other acquired absence of organ documented in this encounter [facility] note* Diagnosis Dehydration- Primary RUQ pain Abdominal pain, right upper quadrant documented in this encounter [facility] note* Diagnosis Right knee pain, unspecified chronicity- Primary documented in this encounter [facility] note* Diagnosis Post-operative pain- Primary Other acute postoperative pain 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 documented in this encounter [facility] note* Diagnosis Dehydration- Primary Nausea Nausea alone RUQ pain Abdominal pain, right upper quadrant documented in this encounter [facility] note* Diagnosis RUQ pain- Primary Abdominal pain, right upper quadrant Chronic nausea Nausea alone [facility]* Diagnosis Chronic nausea Nausea alone RUQ pain Abdominal pain, right upper quadrant [facility]* Diagnosis Abdominal pain, unspecified abdominal location- Primary documented in this encounter [facility] note* Diagnosis Generalized abdominal pain- Primary Abdominal pain, generalized documented [facility]* Diagnosis Nausea Nausea alone RUQ pain Abdominal pain, right upper quadrant History of cholecystectomy Other acquired absence of organ [facility]* Diagnosis Median arcuate ligament syndrome (HCC)- Primary Celiac artery compression syndrome Neuralgia and neuritis Neuralgia, neuritis, and radiculitis, unspecified documented [facility] this [facility]* Diagnosis Chronic pain syndrome- Primary 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 [facility]* Diagnosis Median arcuate ligament syndrome (HCC)- Primary Celiac artery compression syndrome 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 documented in this encounter [facility] noteNo assessment information availablePromedica [facility] Work Phone: Evaluation note* Diagnosis Median arcuate ligament syndrome (CMS/HCC)- Primary Celiac artery compression syndrome PONV (postoperative nausea and vomiting) Nausea with vomiting RICHAR (obstructive sleep apnea) Obstructive sleep apnea (adult) (pediatric) Asthma Unspecified asthma Anxiety Anxiety state, unspecified Osteoarthritis Osteoarthrosis, unspecified whether generalized or localized, unspecified site Depression Depressive disorder, not elsewhere classified documented in this encounter [facility] Work Phone: Evaluation note* Diagnosis Abdominal pain- Primary Abdominal pain, unspecified site Abdominal pain Abdominal pain, unspecified site Nausea and vomiting, unspecified vomiting type History of gastric bypass Median arcuate ligament syndrome (CMS/HCC) Celiac artery compression syndrome documented in this encounter [facility] Work Phone: Evaluation note* Diagnosis Median arcuate ligament syndrome (CMS/HCC)- Primary Celiac artery compression syndrome documented in this encounter [facility] Work Phone: Evaluation note* Diagnosis Bariatric surgery status- Primary Dietary zinc deficiency Mineral deficiency, not elsewhere classified Vitamin D deficiency Unspecified vitamin D deficiency documented [facility] this [facility]* Diagnosis Gastroesophageal reflux disease, unspecified whether esophagitis present- Primary Constipation, unspecified constipation type documented in this [facility]* Diagnosis Nausea and vomiting, unspecified vomiting type- Primary documented in this [facility]* Diagnosis Neuralgia and neuritis- Primary Neuralgia, neuritis, and radiculitis, unspecified Gastroesophageal reflux disease without esophagitis Esophageal reflux 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 S/P gastric bypass Bariatric surgery status documented [facility] this [facility]* Diagnosis ARSALAN (generalized anxiety disorder)- Primary Generalized anxiety disorder Panic disorder without agoraphobia Moderate recurrent major depression (HCC) Major depressive disorder, recurrent episode, moderate documented [facility] this [facility]* Diagnosis Sudden onset of severe abdominal pain- Primary Abdominal pain, unspecified site Nausea and vomiting, unspecified vomiting type PEG (percutaneous endoscopic gastrostomy) status (HCC) Gastrostomy status documented [facility]* Diagnosis Median arcuate ligament syndrome (CMS-HCC)- Primary Celiac artery compression syndrome documented in this encounter [facility] Work Phone: Evaluation note* Diagnosis Epigastric pain- Primary Abdominal pain, epigastric Median arcuate ligament syndrome (CMS-HCC) Celiac artery compression syndrome Epigastric pain Abdominal pain, epigastric Nausea and vomiting, unspecified vomiting type Other specified hyperalimentation Generalized abdominal pain Abdominal pain, generalized Acute renal failure superimposed on chronic kidney disease (CMS-HCC) Hypokalemia Hypopotassemia Heart failure (Multi) Unspecified heart failure Nausea and vomiting Nausea with vomiting documented in this encounter [facility] Work Phone: Evaluation note* Diagnosis Urinary frequency- Primary Urgency of urination documented in this encounter [facility]* Diagnosis Screening for genitourinary condition Screening for other and unspecified genitourinary condition documented in this encounter [facility] note* Diagnosis ARSALAN (generalized anxiety disorder)- Primary Generalized anxiety disorder Panic disorder without agoraphobia Moderate recurrent major depression (HCC) Major depressive disorder, recurrent episode, moderate documented in this encounter [facility]* Diagnosis Onset Date Resolution Status Intractable vomiting with nausea acute Small bowel obstruction [facility] Work Phone: Evaluation note* Diagnosis Onset Date Resolution Status Intractable vomiting with nausea acute Small bowel obstruction acut e Status post gastric bypass for obesity acute [facility] Work Phone: evaluation note* Diagnosis Chronic nausea- Primary Nausea alone History of laparoscopic partial gastrectomy Personal history of surgery to other organs History of sphincterotomy of sphincter of Oddi Other postprocedural status 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 documented in this encounter [facility] note* Diagnosis Chronic abdominal pain- Primary Abdominal pain, unspecified site Gastroesophageal reflux disease without esophagitis Esophageal reflux Neuralgia and neuritis Neuralgia, neuritis, and radiculitis, unspecified 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 S/P gastric bypass Bariatric surgery status documented in this encounter [facility] note* Diagnosis Gastroesophageal reflux disease without esophagitis Esophageal reflux Neuralgia and neuritis Neuralgia, neuritis, and radiculitis, unspecified 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 Chronic abdominal pain Abdominal pain, unspecified site S/P gastric bypass Bariatric surgery status documented in this encounter [facility] note* Diagnosis Gastroesophageal reflux disease without esophagitis Esophageal reflux Neuralgia and neuritis Neuralgia, neuritis, and radiculitis, unspecified 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 Chronic abdominal pain Abdominal pain, unspecified site S/P gastric bypass Bariatric surgery status documented in this encounter [facility] note* Diagnosis Neuralgia and neuritis- Primary Neuralgia, neuritis, and radiculitis, unspecified 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 documented [facility] encounter [facility] general Narrative - ReportedNort [email or web address] Other [employer] general Narrative - Reported* Type Description Date [...] hystectomy 2020 Hospitalization History childbirths Hospitalization History [facility] 2019 Hospitalization History salvador axel-gastritis 1 03/2020 [email or web address] [email or web address] Other History general Narrative - Reported* Type [...] repair 03/20/2021 Hospitalization History childbirths Hospitalization History [facility] 2019 Hospitalization History [facility]-gastritis 1 03/2020 [employer] Other History of Present illness Narrative* Sherry Magaña MD - 04/20/2023 3:45 PM EST And I had a phone conversation patient and I had a phone conversation as she was at home in the [facility] and I was [facility]. She is recovering from a laparotomy for [...] she has seen her general surgeon at [facility] and will be following up with her gastro enterologist at the clinic. I will see her back by virtual visit in 2 months [facility] Work Phone: Hospital course Narrative No data available for this section [facility] Attachments The following attachments cannot be sent through Care Everywhere. * Uterine Fibroids ([place] Citizen) * Ovarian Cyst: Hemorrhagic ([place] Citizen) documented [facility]* Attachments The following attachments cannot be sent through Care Everywhere. * Finger: Bruises ([place] Citizen) * Subungual Hematoma ([place] Citizen) [facility] Discharge instructions* Attachments The following attachments cannot be sent through Care Everywhere. * Abdominal Pain ([place] Citizen) [facility] Phone: Hospital Discharge instructions No data available for this section [facility] Attachments The following attachments cannot be sent through Care Everywhere. * Abdominal Pain ([place] Citizen) documented in [facility] Discharge instructions Additional Instructions Please take medications as prescribed. Return to ER or follow-up with PCP or GI specialist if symptoms worsen. 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.[facility] Work Phone: Hospital Discharge instructions Additional Instructions Take the promethazine either orally or rectally as needed for nausea vomiting 1 oxycodone every 6 hours for severe pain Continue your other medication Try to drink good fluids such as water Gatorade Pedialyte Follow-up with your specialist tomorrow as scheduled Return to the ER for worsening pain high fever vomiting despite medication or any other [facility] Work Phone: Hospital Discharge instructions Additional Instructions [facility] to manage care: - Full code - Routine vital signs - NPO - Maintain central line, routine care per protocol - Decompress the J-tube by placing it to gravity drain when she does develop nauseaPromedica [facility] Hospital Work Phone: Hospital Discharge instructions Additional Instructions Follow up with your [facility] surgeon Return to the ED if you develop worsening symptoms or concernsPromedica [facility] Work Phone: Progress note No data available for this section [facility] Consultation (Routine) - New Request Specialty Diagnoses / Procedures Referred By Jazmine hooks Referred To Contact [facility] Diagnoses Articular cartilage disorder of right knee Lucie Mora MD [address] [facility] [place] [address] Referral ID Status Reason Start Date Expiration Date V isits Requested Visits Authorized [id number] New Request 06/02/2021 06/27/2022 1 1 [facility] for referral (narrative)* Diagnostic Procedure Only (Routine) - Closed Specialty Diagnoses / Procedures Referred By Contac t Referred To Contact XR IMAGING Diagnoses Acetabular labrum tear, right, initial encounter Procedures XR HIP GENERAL 3V PELV/AP/LAT RIGHT RADEX HIP UNILATERAL WITH PELVIS 2-3 VIEWS Kuldip Yousif MD [address] [place] [address] Xr Imaging Referral ID Status Reason Start Date Expiration Date V isits Requested Visits Authorized [id number] Closed Auto-Generate d Referral 06/18/2021 07/18/2022 1 1 [facility] for referral (narrative)* Outpatient Procedure (Routine) - Pending Review Specialty Diagnoses / Procedures Referred By Contac t Referred To Contact [facility] [place] Diagnoses Gastroesophageal reflux disease without esophagitis Procedures EGD - THERAPEUTIC, EUS, OR TUBE INTERVENTIONS ESOPHAGOGASTRODUODENOSC OPY [place] [address] [place] [address] [id number] [place] [address] Referral ID Status Reason Start Date Expiration Date Visits Requested Visits Authorized [id number] Pending Review Auto-Generat ed Referral 11/17/2021 11/17/2022 1 1 T [facility] for referral (narrative)* Outpatient Procedure (Routine) - Authorized Specialty Diagnoses / Procedures Referred By Contac t Referred To Contact [facility] Diagnoses Gastroesophageal reflux disease without esophagitis S/P laparoscopic sleeve gastrectomy Procedures PH IMPEDANCE INSERT OFF MEDS ESOPHGL FUNCJ G-ESOP RFLX IMPD ELTRD PROLNG Breanna Stern APRN.STORE CUSTODIAN [address] [place] [address] [phone] Referral ID Status Reason Start Date Expiration Date Visits Requested Visits Authorized [id number] Authorized Auto-Generat ed Referral 11/19/2021 11/18/2022 1 1 [facility] for referral (narrative)* Outpatient Procedure (Routine) - Pending Review Specialty Diagnoses / Procedures Referred By Contac t Referred To Contact [facility] Diagnoses Regurgitation of food Gastroesophageal reflux disease, unspecified whether esophagitis present Procedures PH HUERTA INSERT OFF MEDS GASTROESOPHAG REFLX TEST W/TELEMTRY PH Breanna Hernandez APRN.STORE CUSTODIAN [phone] [place] [phone] Referral ID Status Reason Start Date Expiration Date Visits Requested Visits Authorized [id number] Pending Review Auto-Generat ed Referral 12/17/2022 1 1 [facility] for referral (narrative)* Outpatient Procedure (Routine) - Closed Specialty Diagnoses / Procedures Referred By Contac t Referred To Contact [facility] Diagnoses Gastroesophageal reflux disease without esophagitis Procedures EGD - THERAPEUTIC, EUS, OR TUBE INTERVENTIONS ESOPHAGOGASTRODUODENOSC OPY [place] [id number] [place] [address] Referral ID Status Reason Start Date Expiration Date V isits Requested Visits Authorized [id number] Closed Auto-Generate d Referral 11/17/2021 11/17/2022 1 1 [facility] for referral (narrative)* Outpatient Procedure (Routine) - Pending Review Specialty Diagnoses / Procedures Referred By Contac t Referred To [facility] Diagnoses Pre-op evaluation Procedures ECG COMPLETE ECG ROUTINE ECG W/LEAST 12 LDS W/I&R Ioana Hogan PA-C [address] [place] [address] [facility] [address] [place] [address] Referral ID Status Reason Start Date Expiration Date Visits Requested Visits Authorized [id number] Pending Review Auto-Generat ed Referral 2 01/28/2023 1 1 [facility] for referral (narrative)* Outpatient Procedure (Routine) - Authorized Specialty Diagnoses / Procedures Referred By Contac t Referred To Contact [facility] Diagnoses Esophageal dysphagia S/P gastric bypass Procedures EGD - THERAPEUTIC, EUS, OR TUBE INTERVENTIONS EGD BALLOON DILATION ESOPHAGUS <30 MM DIAM Breanna Stern APRN.CNP [address] [place] [address] [facility] [address] [place] [address] Referral ID Status Reason Start Date Expiration Date Visits Requested Visits Authorized [id number] Authorized Auto-Generat ed Referral 03/05/2022 03/05/2023 1 1 [facility] for referral (narrative)* Outpatient Procedure (Routine) - Closed Specialty Diagnoses / Procedures Referred By Contac t Referred To Contact [facility] Diagnoses Esophageal dysphagia S/P gastric bypass Procedures EGD - THERAPEUTIC, EUS, OR TUBE INTERVENTIONS EGD BALLOON DILATION ESOPHAGUS <30 MM DIAM Breanna Stern APRN.CNP [address] [place] [address] [facility] [phone] [place] [address] Referral ID Status Reason Start Date Expiration Date V isits Requested Visits Authorized [id number] Closed Auto-Generate d Referral 03/05/2022 03/05/2023 1 1 [facility] for referral (narrative)* Outpatient Procedure (Routine) - Pending Review Specialty Diagnoses / Procedures Referred By Jazmine t Referred To Contact [facility] Diagnoses Constipation, unspecified constipation type Procedures [facility] ANORECTAL MANOMETRY ANORECTAL MANOMETRY Kasie Avalos MD [address] [place] [address] [address] Referral ID Status Reason Start Date Expiration Date Visits Requested Visits Authorized [id number] Pending Review Auto-Generat ed Referral 07/22/2022 07/23/2023 1 1 [facility] for referral (narrative)* Diagnostic Procedure Only (Routine) - Pending Review Specialty Diagnoses / Procedures Referred By Jazmine t Referred To Contact XR IMAGING Diagnoses S/P bariatric surgery Gastroesophageal reflux disease, unspecified whether esophagitis present Procedures XR UPPER GI ROUTINE DOUBLE CONTRAST/AIR RADIOLOGIC EXAM UPR GI TRC DOUBLE CONTRAST STUDY Breanna Stern APRN.CNP [address] [place] [address] Xr Imaging Referral ID Status Reason Start Date Expiration Date Visits Requested Visits Authorized [id number] Pending Review Auto-Generat ed Referral 09/18/2022 10/18/2023 1 1 [facility] for referral (narrative)* Outpatient Procedure (Routine) - Authorized Specialty Diagnoses / Procedures [facility] Referred To Contact [facility] Diagnoses Epigastric pain Procedures EGD DIAGNOSTIC ESOPHAGOGASTRODUODENOSC OPY [place] [address] [place] [address] [facility] Disease [phone] [place] [address] Referral ID Status Reason Start Date Expiration Date Visits Requested Visits Authorized [id number] Authorized Auto-Generat ed Referral 10/20/2022 10/21/2023 1 1 [facility] for referral (narrative)* Diagnostic Procedure Only (Routine) - Closed Specialty Diagnoses / Procedures Referred By Contac t Referred To Contact US IMAGING Diagnoses Nausea RUQ pain History of cholecystectomy Procedures US ABD RIGHT UPPER QUADRANT US ABDOMINAL REAL TIME W/[place] [address] [phone] [place] [address] Referral ID Status Reason Start Date Expiration Date V isits Requested Visits Authorized [id number] Closed Auto-Generate d Referral 11/04/2022 12/04/2023 1 1 * Diagnostic Procedure Only (Routine) - Authorized Specialty Diagnoses / Procedures Referred By Contact Referred To Contact [facility] Diagnoses Nausea RUQ pain History of cholecystectomy Procedures NM HEPATOBILIARY W EF AND/OR RX HEPATOBIL SYST IMAG INC GB W/[place] [address] [phone] [facility] [address] [place] [address] Referral ID Status Reason Start Date Expiration Date Visits Requested Visits Authorized [id number] Authorized Auto-Generat ed Referral 11/04/2022 12/04/2023 1 1 [facility] for referral (narrative)* Diagnostic Procedure Only (Routine) - Pending Review Specialty Diagnoses / Procedures Referred By Contac t Referred To Contact XR IMAGING Diagnoses Right knee pain, unspecified chronicity Procedures XR KNEE GENERAL 4V AP BOTH/PA BOTH/LAT/MERC RIGHT RADIOLOGIC EXAM KNEE COMPLETE 4/MORE VIEWS Agustin Salmeron PA-C [address] [place] [address] Xr Imaging [id number] Referral ID Status Reason Start Date Expiration Date Visits Requested Visits Authorized [id number] Pending Review Auto-Generat ed Referral 11/04/2022 12/04/2023 1 1 [facility] for referral (narrative)* Outpatient Procedure (Urgent) - Authorized Specialty Diagnoses / Procedures Referred By Contac t Referred To Contact [facility] Diagnoses Chronic nausea RUQ pain Procedures US MESENTERIC ARTERY CMPLT VAS LAB DUP-SCAN ARTL TIARA ABDL/PEL/SCROT&/[place] [address] [place] [address] [facility] [address] [place] [address] Referral ID Status Reason Start Date Expiration Date Visits Requested Visits Authorized [id number] Authorized Auto-Generat ed Referral 11/23/2022 11/23/2023 1 1 [facility] for referral (narrative)* Outpatient Procedure (Urgent) - Closed Specialty Diagnoses / Procedures Referred By Contac t Referred To Contact [facility] Diagnoses Chronic nausea RUQ pain Procedures US MESENTERIC ARTERY CMPLT VAS LAB DUP-SCAN ARTL TIARA ABDL/PEL/SCROT&/RPR ORGN [facility] [place] [address] [place] [address] [facility] [address] [place] [address] Referral ID Status Reason Start Date Expiration Date V isits Requested Visits Authorized [id number] Closed Auto-Generate d Referral 11/23/2022 11/23/2023 1 1 [facility] for referral (narrative)* Diagnostic Procedure Only (Routine) - Closed Specialty Diagnoses / Procedures Referred By Contac t Referred To Contact US IMAGING Diagnoses Nausea RUQ pain History of cholecystectomy Procedures US ABD RIGHT UPPER QUADRANT US ABDOMINAL REAL [place] W/[place] [address] [place] [address] [place] [address] Referral ID Status Reason Start Date Expiration Date V isits Requested Visits Authorized [id number] Closed Auto-Generate d Referral 11/04/2022 12/04/2023 1 1 [facility] for referral (narrative)* Outpatient Procedure (Routine) - Authorized Specialty Diagnoses / Procedures [facility] Referred To Contact [facility] Diagnoses Gastroesophageal reflux disease, unspecified whether esophagitis present Procedures PH HUERTA INSERT ON OR [employer]ivityS GASTROESOPHAG REFLX TEST W/TELEMTRY PH JAKETRKasie Moore MD [address] [place] [address] [address] Referral ID Status Reason Start Date Expiration Date Visits Requested Visits Authorized [id number] Authorized Auto-Generat ed Referral 04/28/2023 04/27/2024 1 1 * Outpatient Procedure (Routine) - Authorized Specialty Diagnoses / Procedures Referred By Jazmine hooks Referred To Contact [facility] Diagnoses Gastroesophageal reflux disease, unspecified whether esophagitis present Procedures EGD - THERAPEUTIC, EUS, OR TUBE INTERVENTIONS ESOPHAGOGASTRODUODENOSC OPY TRANSORAL DIAGNOSTIC Kasie Avalos MD [address] [place] [address] [address] Referral ID Status Reason Start Date Expiration Date Visits Requested Visits Authorized [id number] Authorized Auto-Generat ed Referral 04/28/2023 04/27/2024 1 1 [facility] for visit NarrativeGeneral Surgery Referral UpdateNort [email or web address] Other Reason for visit Narrative* Outpatient Procedure (Routine) - Closed Specialty Diagnoses / Procedures [facility] Referred To Contact [facility] Diagnoses Gastroesophageal reflux disease without esophagitis Procedures EGD - THERAPEUTIC, EUS, OR TUBE INTERVENTIONS ESOPHAGOGASTRODUODENOSC OPY [place] [address] [place] [address] [address] Referral ID Status Reason Start Date Expiration Date V isits Requested Visits Authorized [id number] Closed Auto-Generate d Referral 11/17/2021 11/17/2022 1 1 [facility] for visit Narrative* Outpatient Procedure (Routine) - Closed Specialty Diagnoses / Procedures [facility] Referred To Contact [facility] Diagnoses Esophageal dysphagia S/P gastric bypass Procedures EGD - THERAPEUTIC, EUS, OR TUBE INTERVENTIONS EGD BALLOON DILATION ESOPHAGUS <30 MM DIAM Breanna Stern, ETHNOARCHAEOLOGY PROFESSOR.STORE CUSTODIAN [address] [place] [address] [phone] Referral ID Status Reason Start Date Expiration Date V isits Requested Visits Authorized [id number] Closed Auto-Generate d Referral 03/05/2022 03/05/2023 1 1 [facility] for visit Narrative* Outpatient Procedure (Urgent) - Closed Specialty Diagnoses / Procedures [facility] Referred To Contact [facility] Diagnoses Chronic nausea RUQ pain Procedures US MESENTERIC ARTERY CMPLT VAS LAB DUP-SCAN ARTL TIARA ABDL/PEL/SCROT&/[place] [address] [place] [address] [address] Referral ID Status Reason Start Date Expiration Date V isits Requested Visits Authorized [id number] Closed Auto-Generate d Referral 11/23/2022 11/23/2023 1 1 [facility] for visit Narrative* Diagnostic Procedure Only (Routine) - Closed Specialty Diagnoses / Procedures [facility] Referred To Contact US IMAG[facility] Diagnoses Nausea RUQ pain History of cholecystectomy Procedures US ABD RIGHT UPPER QUADRANT US ABDOMINAL REAL [place] W/[place] [address] [place] [address] [place] [address] Referral ID Status Reason Start Date Expiration Date V isits Requested Visits Authorized [id number] Closed Auto-Generate d Referral 11/04/2022 12/04/2023 1 1 [facility] Summary Purpose Family History Relationship Condition Age at Onset Recorded Date/T fabiano father Hypothyroidism Unknown Not Specified Family history of mental disorder Unknow n Hypertension Unknown Diabetes mellitus Unknown Relationship Condition Age at Onset Recorded Date/T fabiano father Hypothyroidism Unknown mother Family history of mental disorder Unknown Hypertension Unknown Diabetes mellitus Unknown Advance Directives Documents on File Type Date Recorded 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 Advance Directive(s) 03/13/2021 9:49 AM Date Activated Date Inactivated Comments 12/06/2022 9:37 PM 12/09/2022 8:48 PM Question Answer Comments Full Code Order Discussed With: Patient Date Activated Date Inactivated Comments 11/22/2022 8:03 PM 11/23/2022 5:11 PM Question Answer Comments Full Code Order Discussed With: Patient Documents on File Type Date Recorded 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 Advance Directive(s) 03/13/2021 9:49 AM [...] Documents on File Type Date Recorded 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 Advance Directive(s) 07/04/2021 4:13 PM [...] Documents on File Type Date Recorded 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 Advance Directive(s) 03/13/2021 9:49 AM [...] With: Patient Date Activated Date Inactivated Comments 03/05/2023 2:37 PM Question Answer Comments Plan of Care: Code Status Discussion Completed Decision Maker: Patient Date Activated Date Inactivated Comments 03/05/2023 2:37 PM Question Answer Comments Plan of Care: Code Status Discussion Completed Decision Maker: Patient Date Activated Date Inactivated Comments 06/06/2023 10:22 PM 06/09/2023 4:19 PM Date Activated Date Inactivated Comments 05/26/2023 3:55 PM 05/28/2023 4:02 PM Date Activated Date Inactivated Comments 05/19/2023 1:17 PM 05/22/2023 4:56 PM Question Answer Comments Full Code Order Discussed With: Patient Date Activated Date Inactivated Comments 12/06/2022 9:37 PM 12/09/2022 8:48 PM Question Answer Comments Full Code Order Discussed With: Patient Date Activated Date Inactivated Comments 11/22/2022 8:03 PM 11/23/2022 5:11 PM Question Answer Comments Full Code Order Discussed With: Patient Date Activated Date Inactivated Comments 07/19/2023 11:21 AM Date Activated Date Inactivated Comments 06/06/2023 10:22 PM 06/09/2023 4:19 PM Date Activated Date Inactivated Comments 05/26/2023 3:55 PM 05/28/2023 4:02 PM Date Activated Date Inactivated Comments 05/19/2023 1:17 PM 05/22/2023 4:56 PM Date Activated Date Inactivated Comments 12/06/2022 9:37 PM 12/09/2022 8:48 PM Date Activated Date Inactivated Comments 07/19/2023 11:21 AM 07/20/2023 4:03 PM Date Activated Date Inactivated Comments 06/06/2023 10:22 PM 06/09/2023 4:19 PM Date Activated Date Inactivated Comments 05/26/2023 3:55 PM 05/28/2023 4:02 PM Date Activated Date Inactivated Comments 05/19/2023 1:17 PM 05/22/2023 4:56 PM Date Activated Date Inactivated Comments 12/06/2022 9:37 PM 12/09/2022 8:48 PM Date Activated Date Inactivated Comments 08/04/2023 3:12 PM Date Activated Date Inactivated Comments 07/19/2023 11:21 AM 07/20/2023 4:03 PM Date Activated Date Inactivated Comments 06/06/2023 10:22 PM 06/09/2023 4:19 PM Date Activated Date Inactivated Comments 05/26/2023 3:55 PM 05/28/2023 4:02 PM Date Activated Date Inactivated Comments 05/19/2023 1:17 PM 05/22/2023 4:56 PM Date Activated Date Inactivated Comments 08/07/2023 3:20 PM 08/08/2023 5:15 PM Date Activated Date Inactivated Comments 08/04/2023 3:12 PM 08/06/2023 6:24 PM Date Activated Date Inactivated Comments 07/19/2023 11:21 AM 07/20/2023 4:03 PM Date Activated Date Inactivated Comments 06/06/2023 10:22 PM 06/09/2023 4:19 PM Date Activated Date Inactivated Comments 05/26/2023 3:55 PM 05/28/2023 4:02 PM Discharge Instructions * Attachments The following attachments cannot be sent through Care Everywhere. * Abdominal Pain with Follow Up in 24 Hours ([facility]) ([place] Citizen) documented in this encounter Assessments Diagnosis Lower abdominal pain- Primary Abdominal pain, other specified site Reason for Referral Status Reason Specialty Diagnoses / Procedures Referre d By Contact Referred To Contact Closed Procedures US PELVIC WITH TRANSVAGINAL WITH DOPPLER Juanito Laird PA-C [address] [place] [address] Specialty Diagnoses / Procedures Referred By Contact Referred To Contact [facility] Diagnoses Tear of right acetabular labrum, subsequent encounter Procedures CONSULT TO PHYSICAL THERAPY PHYSICAL THERAPY EVALUATION HIGH COMPLEX 45 MINS Justine Shabazz PA-C [address] [place] [address] [facility] [address] [place] [address] Referral ID Status Reason Start Date Expiration Date Visits Requested Visits Authorized [id number] Pending Review Auto-Generat ed Referral 06/23/2021 06/23/2022 1 1 Reason 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 - Please request Dr. Keven Gomez [phone] Diagnosis 1 Hernia (K46.9) Referral Organization [facility] Priscila Guo Referring Provider First Name Shanna Referring Provider Last Name Slade Referring Provider Specialty Nurse Isabellet itionezita Referred Organization [facility] Referred Address [address] [facility], [place],[address] Referred Provider Specialty General Surg ammon Referral Priority Routine Specialty Diagnoses / Procedures Referred By Jazmine hooks Referred To Contact Diagnoses S/P laparoscopic sleeve gastrectomy Procedures CONSULT TO BARIATRIC NUTRITION OFFICE/OUTPATIENT [facility] MDM 60-74 MINUTES Sabina Joy APRN.STORE CUSTODIAN [address] [place] [address] Referral ID Status Reason Start Date Expiration Date Visits Requested Visits Authorized [id number] Pending Review PCP Requested Referral 10/09/2021 10/09/2022 [...] BARIATRIC ESOPHAGOGASTRODUODENOSCO PY TRANSORAL DIAGNOSTIC Sabina Joy APRN.STORE CUSTODIAN [address] [place] [address] [facility] [address] [place] [address] Referral ID Status Reason Start Date Expiration Date Visits Requested Visits Authorized [id number] Pending Review Auto-Generat ed Referral 10/09/2021 10/09/2022 1 1 Specialty Diagnoses / Procedures Referred By Jazmine hooks Referred To Contact Diagnoses RICHRA (obstructive sleep apnea) Procedures CONSULT TO SLEEP MEDICINE - ADULT OFFICE/OUTPATIENT [facility] MDM 60-74 MINUTES Sabina Joy APRN.STORE CUSTODIAN [address] [place] [address] Referral ID Status Reason Start Date Expiration Date Visits Requested Visits Authorized [id number] Authorized PCP Requested Referral 2 01/02/2023 1 1 Specialty Diagnoses / Procedures Referred By Contac t Referred To Contact [facility] Diagnoses S/P bariatric surgery Primary osteoarthritis involving multiple joints Procedures CONSULT TO PHYSICAL THERAPY PHYSICAL THERAPY EVALUATION HIGH COMPLEX 45 MINS Breanna Stern, ETHNOARCHAEOLOGY PROFESSOR.STORE CUSTODIAN [address] [place] [address] [facility] [address] [place] [address] Referral ID Status Reason Start Date Expiration Date Visits Requested Visits Authorized [id number] Pending Review Auto-Generat ed Referral 2 02/03/2023 1 1 Specialty Diagnoses / Procedures Referred By Contac t Referred To Contact Endocrinology Diagnoses History of adrenal insufficiency Hypothyroidism, unspecified type Procedures CONSULT TO ENDOCRINOLOGY OFFICE/OUTPATIENT [facility] 60-74 MINUTES Aliyah Washburn PA-C [address] [place] [address] Referral ID Status Reason Start Date Expiration Date Visits Requested Visits Authorized [id number] Authorized PCP Requested Referral 06/12/2022 06/12/2023 1 1 Specialty Diagnoses / Procedures Referred By Contac t Referred To Contact Allergy Diagnoses Rash and nonspecific skin eruption Pain in eye, unspecified laterality Facial edema Procedures CONSULT TO ALLERGY/IMMUNOLOGY OFFICE/OUTPATIENT [facility] MDM 60-74 MINUTES Samara Evans MD [address] [place] [address] Referral ID Status Reason Start Date Expiration Date Visits Requested Visits Authorized [id number] Authorized PCP Requested Referral 07/28/2022 07/28/2023 1 1 Specialty Diagnoses / Procedures Referred By Contac t Referred To Contact CT IMAGING Diagnoses Generalized abdominal pain Procedures CTA ABD/PEL W IVCON CT ANGIO ABD&PLVIS CNTRST MTRL W/WO CNTRST Agustin Piper MD [address] [place] [address] [address] [facility] [place] [address] Referral ID Status Reason Start Date Expiration Date Visits Requested Visits Authorized [id number] Authorized Auto-Generat ed Referral 3 01/17/2023 1 1 Specialty Diagnoses / Procedures Referred By Contac t Referred To Contact Home Health Services Diagnoses Median arcuate ligament syndrome (CMS/HCC) Alicia Toro, ETHNOARCHAEOLOGY PROFESSORBOSTON NURS[facility] FOR BL[facility] [address] [place] [address] Referral ID Status Reason Start Date Expiration Date Visits Requested Visits Authorized [id number] Authorized Specialty Services Required 03/08/2023 03/07/[phone] Specialty Diagnoses / Procedures Referred By Contac t Referred To Contact Home Health Services Diagnoses Other [place] [address] [address] [place] [address] Referral ID Status Reason Start Date Expiration Date Visits Requested Visits Authorized [id number] Authorized Specialty Services Required 07/01/2023 06/30/2024 999 999 Specialty Diagnoses / Procedures Referred By Contac t Referred To Contact Francisco J Steve MD [address] [place] [address] Referral ID Status Reason Start Date Expiration Date V isits Requested Visits Authorized [id number] Pending Review 1 1 Specialty Diagnoses / Procedures Referred By Contac t Referred To Contact TRANSPLANT Diagnoses Chronic nausea History of laparoscopic partial gastrectomy History of sphincterotomy of sphincter of Oddi Median arcuate ligament syndrome (HCC) Procedures CONSULT TO [facility] LAPAROTOMY CELIOTOMY W/[place] [address] [place] [address] [facility] [address] [address] Referral ID Status Reason Start Date Expiration Date Visits Requested Visits Authorized [id number] Canceled Financial Clearance Required - OON Payor 07/19/2023 07/18/2024 99 99 Medications Administered Section Inactive Administered Medications - up to 3 most recent administrations Medication Order MAR Action Action Date Dose Rate Site benzocaine 20% (TOPEX) TOPICAL, X (OR/PROCEDURE) PRN, Starting on Heena 12/25/21 at 0939, Until Heena 12/25/21 at 0939, Intraprocedure Given 12/25/2021 9:39 AM EST 1 [place] Meperidine (PF) injection (DEMEROL) X (OR/PROCEDURE) PRN, [...] eat or dri nk unable to urinate Chief Complaint unable to urinate abd pain n/v has TPN Reason for Visit Intractable vomiting with nausea Small bowel obstruction Chief Complaint unable to urinate abd pain 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 TPN Reason for Visit Intractable vomiting with nausea Small bowel obstruction Status post gastric bypass for obesity Chief Complaint unable to urinate abd pain n/v has TPN lt side pain, hx bowel obstruction Reason for Visit Intractable vomiting with nausea Small bowel obstruction Status post gastric bypass for obesity Chief Complaint unable to urinate abd pain n/v has TPN lt side pain, hx bowel obstruction home health nurse sent over Reason for Visit Intractable vomiting with nausea Small bowel obstruction Status post gastric bypass for obesity Additional Source Comments INFORMATION SOURCE (unrecogn ized section and content) DATE CREATED AUTHOR 09/11/2017 [facility] DATE CREATED AUTHOR AUTHOR'S ORGANIZ ATION 06/03/2021 [facility] DATE CREATED AUTHOR AUTHOR'S ORGANIZ ATION 06/24/2022 [facility] DATE CREATED AUTHOR AUTHOR'S ORGANIZ ATION 11/01/2022 [facility] DATE CREATED AUTHOR AUTHOR'S ORGANIZ ATION 11/07/2022 [facility] DATE CREATED AUTHOR AUTHOR'S ORGANIZ ATION 11/22/2022 [facility] DATE CREATED AUTHOR AUTHOR'S ORGANIZ ATION 11/29/2022 [facility] DATE CREATED AUTHOR AUTHOR'S ORGANIZ ATION 12/16/2022 [facility] DATE CREATED AUTHOR AUTHOR'S ORGANIZ ATION 02/12/2023 [facility] DATE CREATED AUTHOR AUTHOR'S ORGANIZ ATION 02/18/2023 [facility] DATE CREATED AUTHOR AUTHOR'S ORGANIZ ATION 06/27/2023 [facility] DATE CREATED AUTHOR AUTHOR'S ORGANIZ ATION 07/11/2023 [facility] DATE CREATED AUTHOR AUTHOR'S ORGANIZ ATION 07/21/2023 [facility] DATE CREATED AUTHOR AUTHOR'S ORGANIZ ATION 07/22/2023 [facility] DATE CREATED AUTHOR AUTHOR'S ORGANIZ ATION 08/01/2023 [facility] DATE CREATED AUTHOR AUTHOR'S ORGANIZ ATION 08/06/2023 [facility] DATE CREATED AUTHOR AUTHOR'S ORGANIZ ATION 08/07/2023 [facility] DATE CREATED AUTHOR AUTHOR'S ORGANIZ ATION 08/12/2023 [facility] DATE CREATED AUTHOR AUTHOR'S ORGANIZ ATION 08/13/2023 [facility] Reason for Visit (unrecogniz ed section and content) Reason Comments Fatigue Anxiety Stress Specialty Diagnoses / Procedures Referred By Jazmine hooks Referred To Contact Psychology / ADULT PSYCHOLOGY Diagnoses follow up Procedures VIDEO PSYC/PSYL EST Pablo Lebron, ROSALBA [address] [id number] Pablo Lebron, ROSALBA [address] [address] [phone] Referral ID Status Reason Start Date Expiration Date V isits Requested Visits Authorized [id number] Pending Review 06/09/2023 09/07/2023 1 1 Reason Comments Abdominal Pain RUQ abdominal pain t hat is spreading across her back and into the left side. pt states that she does not have a gallbladder or appendix and has been treated by [facility] recently for bowel adhesions and it is just getting worse. 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 Lebron Procedures VIDEO PSYC/PSYL EST Self Pablo Lebron, PSYD [address] [phone] Referral ID Status Reason Start Date Expiration Date V isits Requested Visits Authorized [id number] Outside PCP 09/21/2022 12/20/2022 1 1 Reason Comments Anxiety Stress Specialty Diagnoses / Procedures Referred By Contac t Referred To Contact Psychology / ADULT PSYCHOLOGY Diagnoses Follow up Procedures VIDEO PSYC/PSYL EST Pablo Lebron, PSYD [address] [facility] [address] [place] [address] Pablo Lberon, PSYD [address] [place] [address] Referral ID Status Reason Start Date Expiration Date V isits Requested Visits Authorized [id number] Pending Review 10/05/2022 01/03/2023 1 1 Reason [...] CT scans showing possible kidney stones near [facility], here today because hands turned brown Reason [...] Update Specialty Diagnoses / Procedures Referred By Jazmine hooks Referred To Contact Diagnoses Median arcuate ligament syndrome (CMS/HCC) 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] Procedures HI UNLISTED PX ABDOMEN MUSCULOSKELETAL SYSTEM Release Median Arcuate Ligament [place] [address] [place] [address] [place] [address] [place] [address] Referral ID Status Reason Start Date Expiration Date Visits Re quested Visits Authorized [id number] 1 1 Reason Comments Abdominal Pain Specialty Diagnoses / Procedures Referred By Jazmine hooks Referred To Contact Diagnoses Abdominal pain History of gastric bypass Nausea and vomiting, unspecified vomiting type nausea and vomiting [place] [address] [place] [address] [address] [place] [address] Referral ID Status Reason Start Date Expiration Date Visits Re quested Visits Authorized [id number] 1 1 Reason Comments Weight Loss Surgery Reason Comments Established Patient Reason Comments Appointment Cancel EGD Reason Comments Patient Question Reason Comments Vomiting Reason Comments Patient Education Manager Universal - Other Reason Onset Date Comments Refill Request 05/28/2023 Reason Comments Medication Problem Reason Comments Anxiety Stress Mood Fatigue Reason Comments Patient Update Patient Question Reason Comments Post Op Follow Up PEG-J placement Reason Comments Follow-up Follow up to KATHY bhardwaj. Currently has a Jtube for feeding, and prolapsed bladder. Pain with eating. Pain around sternum is better and breathing is better Reason Comments Nausea Dry heaving Abdominal Pain Hypoglycemia Specialty Diagnoses / Procedures Referred By Jazmine t Referred To Contact Diagnoses Epigastric pain Median arcuate ligament syndrome (CMS-HCC) Nausea and vomiting, unspecified vomiting type Procedures [place] [address] [place] [address] [facility] [address] [place] [address] Referral ID Status Reason Start Date Expiration Date Visits Re quested Visits Authorized [id number] 1 1 Reason Comments Received Outside Medical Records Reason Comments Education Of Patient/family Reminder Call 08/26/23 appt confirm ed Reason Comments Establish Care pain Altagracia Arnett RN - 01/30/2020 5:34 PM [...] cart, no distress noted. Emergency Department Report [facility] Service Date:.01/30/20 PCP: Shanna June Chief Complaint: Chief Complaint Patient presents with Abdominal Pain RUQ abdominal pain that is spreading across her back and into the left side. pt states that she does not have a gallbladder or appendix and has been treated by [facility] recently for bowel adhesions and it is [...] file Gets together: Not on file Attends roman catholic service: Not on file Active member of [...] with a prescription of Zofran and some Scandia to help with some of the discomfort. [...] information. . . Agustin Gustafson MD 01/30/[address] Gustafson at the bedside documented in [...] mL/hr, Administer over 1 Hours, ONCE, On 07/27/21 at 1030, For 1 dose 1108 (New Bag - Prov ider: Shanna Manning RN)1249 (Stopped - Provider: Shanna Manning RN) famotidine (PEPCID) 20 mg in sodium chloride (PF) 10 mL injection (COMPLETED) 20 mg, IntraVENous, ONCE, 1 dose, On 07/27/21 at 1400, IV Push over minimum of [...] 08/28/2021 08/29/2021 08/30/2021 bupivacaine-EPINEPHrine PF (MARCAINE-w/EPINEPHRINE) 0.5% -[id number] injection 10 mL (COMPLETED) 10 mL, Dental, [...] 10 mg, Intravenous, ONCE, 1 dose, On Wed11/02/22 at 1130 1113 (Given - Provid er: Agustin Flores RN) Ondansetron 4mg/2ml (ZOFRAN) injection 4 mg (COMPLETED) 4 mg, Intravenous, ONCE, 1 dose, On Wed11/02/22 at 1400 1319 (Given - Provid er: Agustin Flores RN) Sodium chloride 0.9% IV solution 2,000 mL (COMPLETED) 2,000 mL, Intravenous, ONCE, 1 dose, On Wed11/02/22 at 1130 1112 ($$New Bag$$ - Provider: [...] not shake. 0614 (Given - Provider: Danny Middleton RN) busPIRone (Buspar) tablet 10 mg 10 mg, oral, 2 times daily, First dose on Wed03/05/23 at 2100 0840 (Given - Provider: Cole Nuñez RN)2121 (Given - Provider: Danny Middleton RN) 08 (Given - Provider: Nadia Zee RN)2000 (Given - Provider: Eileen Austin RN) 09 (Given - Provider: Nadia Zee RN)2100 (Due) enoxaparin (Lovenox) syringe 40 mg 40 mg, subcutaneous, Daily, First dose on Wed03/06/23 at 1130 0840 (Given - Provider: Cole Nuñez RN) 0821 (Given - Provider: Nadia Zee, DEE) 09 (Given - Provider: Nadia Zee RN) [...] Middleton RN) 08 (Given - Provider: Nadia Zee, DEE)2000 (Given - Provider: Eileen Austin RN) 901 (Given - Provider: Nadia Zee RN)2100 (Due) famotidine PF (Pepcid) injection 20 mg(Linked Group 1) 20 mg, intravenous, 2 times daily, First dose (after last modification) on Wed03/05/23 at 2100, Give if unable to take by mouth or feeding tube. 0840 (See Alternative - Provider: Cole Nuñez RN)2122 (See Alternative - Provider: Danny Middleton RN) 08 (See Alternative - Provider: Nadia Zee RN)2000 (See Alternative - Provider: Eileen Austin, DEE) 901 (See Alternative - Provider: Nadia Zee RN)2100 (Due) ferrous sulfate (325 mg ferrous [...] bs 97)0800 (Not Given - Provider: Cole Nuñez RN - Reason: Order parameters not met)1306 (Given - Provider: Cole Nuñez RN)1716 (Given - Provider: Cole Nuñez RN)1999 (Not Given - Provider: Danny Middleton RN [...] tablet 100 mcg 100 mcg, oral, Daily (30), First dose on 03/06/23 at 0630 0551 (Given - Provider: Olga Paz RN) 0544 (Given - Provider: Danny Middleton RN) 0543 (Given - Provider: Eileen Austin, DEE) liothyronine (Cytomel) tablet 5 mcg 5 mcg, oral, Daily, First dose on Wed03/06/23 at 0900 0852 (Given - Provider: Cole Nuñez RN) 0823 (Given - Provider: Nadia Zee RN) 09 (Given - Provider: Nadia Zee, DEE) mirtazapine (Remeron) tablet 15 mg 15 mg, oral, Nightly, First dose on Wed03/05/23 at 2100 2122 (Given - Provider: Danny Middleton RN) 2000 (Given - Provider: Eileen Austin, DEE) 2099 (Due) sennosides (Senokot) tablet 17.2 mg (CANCELED) 17.2 mg (2 tablet), oral, 2 times daily, First dose on Wed03/05/23 at 1445, Bowel Regimen - for prevention of constipation Hold for loose stools 0840 (Given - Provider: Cole Nuñez RN)2121 (Given - Provider: Danny Middleton RN) 09 (Not Given - Provider: Nadia Zee RN - Reason: Other - Comment: fx loose stool) topiramate (Topamax) tablet 50 mg 50 mg, oral, 2 times daily, First dose on Wed03/05/23 at 2100 0840 (Given - Provider: Cole Nuñez RN)212 (Given - Provider: Danny Middleton RN) 0821 (Given - Provider: Nadia Zee RN)2000 (Given - Provider: Eileen Austin RN) 09 (Given - Provider: Nadia Zee RN)2099 (Due) Continuous Medication Order 03/08/2023 03/09/2023 03/10/2023 sodium chloride 0.45 % with KCl 20 mEq/L infusion 75 mL/hr, intravenous, Continuous, Starting on Wed03/07/23 at 1645 0230 (Rate/Dose Verify - Provider: Olga Paz RN)0852 (New Bag - Provider: Cole Nuñez RN) 0145 (New Bag - Provider: Danny Middleton RN)1954 (New Bag - Provider: Eileen Austin RN) 0722 (New Bag - Provider: Eileen Austin RN) PRN Medication Order 03/08/2023 03/09/2023 03/10/2023 acetaminophen [...] Olga Paz RN)1006 (Given - Provider: Cole Nuñez RN)1716 (Given - Provider: Cole Nuñez RN) 0356 (Given - Provider: Danny Middleton RN)1012 (Given - Provider: Nadia Zee RN)1848 (Given - Provider: Nadia Zee RN) 0350 (Given - Provider: Eileen Austin RN) [...] 1515 1301 (Canceled Entry - Provider: Cole Nuñez, RN) hydrOXYzine HCL (Atarax) tablet 25 mg 25 mg, oral, Every 6 hours PRN, itching, Starting on Wed03/08/23 at 1251 1306 (Given - Provider: Cole Nuñez, RN) ondansetron (Zofran) injection 4 mg(Linked Group [...] contact provider if no further options ordered. 44 (See Alternative - Provider: Danny Middleton RN)2000 (See Alternative - Provider: Eileen Austin RN) 43 (Given - Provider: Eileen Austin, DEE) oxyCODONE-acetaminophen (Percocet) 5-325 mg per tablet 1 [...] pain severe (7-10), first line, Starting on 03/08/23 at 1020, If ordered PRN for pain, nurse is permitted to administer this medication for higher pain scores based on patient preference? Yes 1119 (Given - Provider: Cole Nuñez RN)1850 (Given - Provider: Cole Nuñez RN) 0544 (Given - Provider: Danny Middleton RN)1102 (Given - Provider: Nadia Zee, DEE)1952 (Given - Provider: Eileen Austin, RN) 0006 (Given - Provider: Eileen Austin, RN)1312 (Given - Provider: Nadia Zee RN) polyethylene glycol (Glycolax, Miralax) packet 17 g 17 g, oral, Daily PRN, constipation, Starting on Wed03/05/23 at 1514 prochlorperazine (Compazine) injection 10 mg(Linked [...] line, Starting on 03/06/23 at 1240, Give HI if patient is unable to take orally [...] RN) 1622 (See Alternative - Provider: Nadia Zee, DEE) 0902 (See Alternative - Provider: Nadia Zee, DEE) Linked Groups Order Group 1: famotidine (Pepcid) [...] first line, Starting on 03/06/23 at 1240 Or prochlorperazine (Compazine) injection 10 mgJump to med 10 mg, intravenous, Every 6 hours PRN, nausea/vomiting, first line, Starting on 03/06/23 at 1240
Give IV if patient is unable to take orally.
Or prochlorperazine (Compazine) suppository 25 mgJump to med 25 mg, rectal, Every 12 hours PRN, nausea/vomiting, first line, Starting on 03/06/23 at 1240
Give HI if patient is unable to take orally or receive by injection.
Scheduled Medication Order 03/18/2023 03/19/2023 03/20/2023 busPIRone (Buspar) tablet 10 mg 10 mg, oral, 2 times daily, First dose on Wed03/16/23 at 2100 0811 (Given - Provider: Andie Lugo RN)2009 (Given - Provider: Nathalie Campos RN) 0839 (Given - Provider: Christina Lazo RN)2050 (Given - Provider: Nathalie Campos RN) 08 (Given - Provider: Stacie Blanco RN)2100 (Due) cyanocobalamin (Vitamin B-12) tablet 50 mcg 50 mcg, oral, Daily, First dose on Wed03/18/23 at 1515 1558 (Given - Provider: Andie Lugo RN) 0839 (Given - Provider: Christina Lazo RN) 0802 (Given - Provider: Stacie Blanco RN) escitalopram [...] Provider: Andie Lugo RN)2009 (Given - Provider: Nathalie Campos RN) 0839 (Given - Provider: Christina Lazo RN)2050 (Given - Provider: Nathalie Campos RN) 08 (Given - Provider: Stacie Blanco RN)2100 (Due) ferrous sulfate (325 mg ferrous sulfate) tablet 1 tablet 1 tablet, oral, Daily with breakfast, First dose on Wed03/17/23 at 0800 0811 (Given - Provider: Andie Lugo RN) 0839 (Given - Provider: Christina Lazo RN) 08 (Given - Provider: Stacie Blanco RN) heparin (porcine) injection 5,000 Units 5,000 Units, subcutaneous, Every 8 hours scheduled, First dose on Wed03/16/23 at 2200 0609 (Given - Provider: Nathalie Campos RN)1401 (Given - Provider: Andie Lugo RN)2214 (Given - Provider: Nathalie Campos RN) 0657 (Given - Provider: Nathalie Campos RN)1321 (Given - Provider: Christina Lazo RN)2105 (Given - Provider: Nathalie Campos RN) 0537 (Given - Provider: Nathalie Campos RN)1441 (Given - Provider: Stacie Blanco RN)2200 (Due) levothyroxine (Synthroid, Levoxyl) tablet 100 mcg 100 mcg, oral, Daily, First dose on Wed03/17/23 at 0700 0609 (Given - Provider: Nathalie Campos RN) 0657 (Given - Provider: Nathalie Campos RN) 0538 (Given - Provider: Nathalie Campos RN) lidocaine (Uro-Jet) 2 % jelly 1 Application 1 Application, Topical, Once, On Wed03/17/23 at 0945, For 1 dose liothyronine (Cytomel) tablet 5 mcg 5 mcg, oral, Daily, First dose on Wed03/17/23 at 0700 0609 (Given - Provider: Nathalie Campos RN) 0657 (Given - Provider: Nathalie Campos RN) 0600 (Given - Provider: Nathalie Campos RN) metoclopramide (Reglan) tablet 5 mg 5 mg, oral, 3 times daily before meals, First dose on Wed03/20/23 at 1130 1159 (Given - Provider: Stacie Blanco RN)1600 (Due) mirtazapine (Remeron) tablet 15 mg 15 mg, oral, Nightly, First dose on Wed03/16/23 at 2100 2009 (Given - Provider: Nathalie Campos RN) 2050 (Given - Provider: Nathalie Campos RN) 2099 (Due) pantoprazole (ProtoNix) injection 40 mg 40 mg, intravenous, 2 times daily, First dose on Wed03/17/23 at 1900, Reconstitute with 10 mL sodium chloride 0.9% for injection. Push over 2 minutes. Reconstitute with 10 mL sodium chloride 0.9% for injection. Push over 2 minutes. 0811 (Given - Provider: Andie Lugo RN)2008 (Given - Provider: Nathalie Campos RN) 0839 (Given - Provider: Christina Lazo RN)2050 (Given - Provider: Nathalie Campos RN) 08 (Given - Provider: Stacie Blanco RN)2099 (Due) thiamine (Vitamin B1) injection 100 mg (COMPLETED) 100 mg, intravenous, Daily, First dose on Wed03/17/23 at 1900, For 3 days 0811 (Given - Provider: Andie Lugo RN) 0839 (Given - Provider: Christina Lazo RN) Continuous Medication Order 03/18/2023 03/19/2023 03/20/2023 dextrose 5 % and lactated Ringer's infusion () 100 mL/hr, intravenous, Continuous, Starting on Heena 03/18/23 at 1945, For 1 day 2029 (New Bag - Provider: Nathalie Campos RN)2119 (Rate/Dose Verify - Provider: Nathalie Campos RN) 0735 (New Bag - Provider: Nathalie Campos RN)2051 (Stopped - Provider: Nathalie Campos RN) PRN Medication Order 03/18/2023 03/19/2023 03/20/2023 acetaminophen (Tylenol) oral liquid 650 mg(Linked Group 1) 650 mg, nasogastric tube, Every 4 hours PRN, fever (temp greater than 38.0 C), greater than or equal to 38 C, Starting on Wed03/16/23 at 1508 0619 (See Alternative - Provider: Nathalie Campos RN)2349 (See Alternative - Provider: Nathalie Campos RN) acetaminophen (Tylenol) suppository 650 mg(Linked Group 1) 650 mg, rectal, Every 4 hours PRN, fever (temp greater than 38.0 C), greater than or equal to 38 C, Starting on Wed03/16/23 at 1508, If ordered PRN for pain, nurse is permitted to administer this medication for higher pain scores based on patient preference? Yes 0619 (See Alternative - Provider: Nathalie Campos RN)234 (See Alternative - Provider: Nathalie Campos RN) acetaminophen (Tylenol) tablet 650 mg(Linked Group 1) 650 mg, oral, Every 4 hours PRN, fever (temp greater than 38.0 C), greater than or equal to 38 C, Starting on Wed03/16/23 at 1508, If ordered PRN for pain, nurse is permitted to administer this medication for higher pain scores based on patient preference? Yes 0619 (Not Given - Provider: Nathalie Campos RN - Reason: Patient/family refused)234 (Canceled Entry - Provider: Nathalie Campos RN) albuterol 2.5 mg /3 mL [...] maximum rate is 5 mg per minute. 0405 (Given - Provider: Nathalie Campos RN) diazePAM (Valium) injection 5 mg (COMPLETED) 5 mg, intravenous, Administer over 3 Minutes, Every 4 hours PRN, anxiety, muscle spasms, sedation, Starting on Wed03/18/23 at 1934, For 2 doses, Administer over 1-3 minutes, maximum rate is 5 mg per minute. 2008 (Given - Provider: Nathalie Campos RN) 0657 (Given - Provider: Nathalie Campos RN) diazePAM (Valium) tablet 5 mg [...] Christina Lazo RN) 0538 (Given - Provider: Nathalie Campos RN) morphine injection 2 mg 2 mg, intravenous, Every 4 hours PRN, pain moderate (4-6), first line, Starting on Wed03/18/23 at 0953 1006 (Given - Provider: Andie Lugo RN)1407 (Given - Provider: Andie Lugo RN)1814 (Given - Provider: Andie Lugo RN)2214 (Given - Provider: Nathalie Campos RN) 0323 (Given - Provider: Nathalie Campos RN)0839 (Given - Provider: Christina Lazo RN)1321 (Given - Provider: Christina Lazo RN)1747 (Given - Provider: Christina Lazo RN) 0131 (Given - Provider: Nathalie Campos RN)0538 (Given - Provider: Nathalie Campos RN)0958 (Given - Provider: Stacie Blanco RN) morphine injection 4 mg (COMPLETED) 4 mg, intravenous, Every 4 hours PRN, pain severe (7-10), first line, Starting on Wed03/18/23 at 0124, For 2 doses 0130 (Given - Provider: Nathalie Campos RN)0609 (Given - Provider: Nathalie Campos RN) ondansetron (Zofran) injection 4 mg 4 mg, intravenous, Every 6 hours PRN, nausea/vomiting, first line, Starting on Wed03/17/23 at 1129, Give IV if patient is unable to take orally. When administering via IV Push, administer over 3-5 minutes. 2336 (Given - Provider: Nathalie Campos RN) oxyCODONE-acetaminophen (Percocet) 5-325 mg per tablet 1 tablet 1 tablet, oral, Every 6 hours PRN, pain moderate (4-6), second line, Starting on Wed03/16/23 at 1505, If ordered PRN for pain, nurse is permitted to administer this medication for higher pain scores based on patient preference? Yes 2050 (Given - Provider: Nathalie Campos RN) 144 (Given - Provider: Stacie [...] if patient is unable to take orally.
Scheduled Medication Order 07/01/2023 07/02/2023 07/03/2023 busPIRone (Buspar) tablet 10 mg 10 mg, oral, 3 times daily, First dose on Wed06/30/23 at 0900 0914 (Given - Provider: Beatriz Dow RN)1530 (Given - Provider: Beatriz Dow RN)2239 (Given - Provider: Andrew Potts RN) 0826 (Given - Provider: Mariah Herrera RN)1501 (Given - Provider: Mariah Herrera RN)2136 (Given - Provider: Grecia Schaffer RN) 1006 (Given - Provider: Tory Mcmullen, DEE)1500 (Due)2100 (Due) calcium gluconate in NS IV 2 g 2 g, intravenous, at 100 mL/hr, Administer over 1 Hours, Once, On Wed06/29/23 at 2035, For 1 dose escitalopram (Lexapro) tablet 20 mg 20 mg, oral, Daily, First dose on Wed06/30/23 at 0900 0914 (Given - Provider: Beatriz Dow RN) 0826 (Given - Provider: Mariah Herrera RN) 1012 (Given - Provider: Tory Mcmullen, DEE) famotidine (Pepcid) tablet 20 mg 20 mg, oral, 2 times daily, First dose on Wed06/30/23 at 2100 0919 (Given - Provider: Beatriz Dow, RN)223 (Given - Provider: Andrew Potts, DEE) 08 (Given - Provider: Mariah Herrera RN)213 (Given - Provider: Grecia Schaffer, DEE) 1007 (Given - Provider: Tory Mcmullen, DEE)2100 (Due) ferrous sulfate (325 mg ferrous sulfate) tablet 1 tablet 1 tablet, oral, Daily with breakfast, First dose on Wed07/01/23 at 0800 0916 (Given - Provider: Beatriz Dow RN) 08 (Given - Provider: Mariah Herrera, RN) 1006 (Given - Provider: Tory Mcmullen, DEE) heparin (porcine) injection 5,000 Units 5,000 Units, subcutaneous, Every 12 hours, First dose on Wed06/30/23 at 0900 0913 (Given - Provider: Beatriz Dow RN)224 (Given - Provider: Andrew Potts RN) 08 (Given - Provider: Mariah Herrera RN)213 (Given - Provider: Grecia Schaffer, DEE) 1012 (Given - Provider: Tory Mcmullen, DEE)2100 (Due) levothyroxine (Synthroid, Levoxyl) tablet 100 mcg 100 mcg, j-tube, Daily before breakfast, First dose on Wed06/30/23 at 0600 0615 (Given - Provider: Mayda Balbuena LPN) 0552 (Given - Provider: Andrew Potts RN) 0605 (Given - Provider: Grecia Schaffer, DEE) liothyronine (Cytomel) tablet 5 mcg 5 mcg, oral, Daily (0630), First dose on Wed06/30/23 at 1730 0615 (Given - Provider: Mayda Balbuena LPN) 0552 (Given - Provider: Andrew Potts RN) 0605 (Given - Provider: Grecia Schaffer RN) methocarbamol (Robaxin) tablet 750 mg 750 mg, oral, 3 times daily, First dose on Wed06/30/23 at 2100 0915 (Given - Provider: Beatriz Dow RN)1530 (Given - Provider: Beatriz Dow RN)2239 (Given - Provider: Andrew Potts, DEE) 0826 (Given - Provider: Mariah Herrera RN)1501 (Given - Provider: Mariah Herrera RN)2136 (Given - Provider: Grecia Schaffer, DEE) 1007 (Given - Provider: Tory Mcmullen, DEE)1500 (Due)2100 (Due) metoclopramide (Reglan) tablet 5 mg 5 mg, oral, 3 times daily (morning, midday, late afternoon), First dose on Wed06/30/23 at 1745 0915 (Given - Provider: Beatriz Dow RN)1100 (Given - Provider: Baetriz Dow RN)1851 (Given - Provider: Beatriz Dow RN) 0826 (Given - Provider: Mariah Herrera RN)1219 (Given - Provider: Mariah Herrera RN)1647 (Given - Provider: Mariah Herrera RN) 1007 (Given - Provider: Tory Mcmullen, DEE)1145 (Given - Provider: Tory Mcmullen, DEE)1700 (Due) mirtazapine (Remeron) tablet 30 mg 30 mg, oral, Nightly, First dose (after last modification) on Wed06/30/23 at 2100 2239 (Given - Provider: Andrew Potts RN) 2136 (Given - Provider: Grecia Schaffer, DEE) 2100 (Due) morphine injection 4 mg (COMPLETED) 4 mg, intravenous, Once, On Heena 07/01/23 at 1130, For 1 dose 1117 (Given - Provider: Beatriz Dow RN) morphine injection 4 mg (COMPLETED) 4 mg, intravenous, Once, On Heena 07/01/23 at 1815, For 1 dose 185 (Given - Provider: Beatriz Dow RN) pantoprazole (ProtoNix) EC tablet 40 mg 40 mg, oral, Daily, First dose on Heena 07/01/23 at 0900, Do not crush, chew, or split. 0915 (Given - Provider: Beatriz Dow RN) 0826 (Given - Provider: Mariah Herrera RN) 1006 (Given - Provider: Tory Mcmullen, DEE) polyethylene glycol (Glycolax, Miralax) powder 17 g 17 g, oral, 2 times daily, First dose on Wed06/30/23 at 2099 0923 (Given - Provider: Beatriz Dow RN)223 (Given - Provider: Andrew Potts RN - Comment: workflow) 09 (Not Given - Provider: Mariah Herrera RN - Reason: Patient/family refused)2099 (Not Given - Provider: Grecia Schaffer RN - Reason: Other) 09 (Not Given - Provider: Tory Mcmullen RN - Reason: Patient/family refused)2099 (Due) sodium bicarbonate 8.4 % (1 mEq/mL) 50 mEq 50 mEq, intravenous, Once, On Wed06/29/23 at 2034, For 1 dose sodium polystyrene (Kayexalate) suspension 30 g 30 g, oral, Once, On Wed06/29/23 at 2034, For 1 dose topiramate (Topamax) tablet 100 mg 100 mg, oral, 2 times daily, First dose (after last modification) on Wed06/30/23 at 2099 0913 (Given - Provider: Beatriz Dow RN)223 (Given - Provider: Andrew Potts RN) 0827 (Given - Provider: Mariah Herrera RN)213 (Given - Provider: Grecia Schaffer, DEE) 1007 (Given - Provider: Tory Mcmullen, DEE)2099 (Due) Continuous Medication Order 07/01/2023 07/02/2023 07/03/2023 Adult Clinimix Parenteral Nutrition Continuous 83 mL/hr, intravenous, Administer over 24 Hours, Daily PN, Starting on Wed06/30/23 at 2200, Use a 0.22 micron filter.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 1507 (Rate/Dose Verify - Provider: Beatriz Dow RN)2141 (Stopped - Provider: Andrew Potts RN) 0939 (New Bag - Provider: Mariah Herrera RN)2351 (Rate/Dose Verify - Provider: Grecia Schaffer RN) 0257 (Rate/Dose Verify - Provider: Grecia Schaffer RN)0536 (Rate/Dose Verify - Provider: Grecia Schaffer, DEE)1000 (Stopped - Provider: Tory Mcmullen, DEE)1001 (New Bag - Provider: Tory Mcmullen RN) dextrose 10 % in water (D10W) infusion 75 mL/hr, intravenous, Continuous, Starting on Wed06/30/23 at 1945, Infuse only while clinimix is not running/infusing 0444 (Rate/Dose Verify - Provider: Mayda Balbuena LPN)1507 (Rate/Dose Verify - Provider: Beatriz Dow, DEE)1742 (Stopped - Provider: Beatriz Dow, DEE)2225 (New Bag - Provider: Andrew Potts RN) PRN Medication Order 07/01/2023 07/02/2023 07/03/2023 acetaminophen (Tylenol) tablet 650 mg (CANCELED)(Linked Group 1) 650 mg, oral, Every 4 hours PRN, pain mild (1-3), first line, or fever greater than 38 C, Starting on Wed06/30/23 at 2057, If ordered PRN for pain, nurse is permitted to administer this medication for higher pain scores based on patient preference? Yes 1100 (Given - Provider: Beatriz Dow RN) albuterol 2.5 mg /3 mL (0.083 %) nebulizer solution 3 mL 3 mL, nebulization, Every 4 hours PRN, wheezing, shortness of breath, Starting on Wed06/30/23 at 1718 alteplase (Cathflo Activase) injection 2 mg 2 mg, intra-catheter, As needed, line care, Starting on Wed06/30/23 at 0236, Via Central Line Removed by: Aspiration Inject into partial/totally occluded catheter lumen for total of 30 to 120 minute dwell time; assess patency at 30 minutes and if not patent, dwell for additional 90 minutes. If still not patent, repeat alteplase 2 mg injected into thrombotic partial or totally occluded lumen for a total of 120 minute dwell time; assess patency at 30 minutes and if not patent, dwell for 90 minutes. If still not patent, notify provider. Dilute each 2 mg vial with 2.2 mL sterile water to give 1 mg/mL final concentration. Swirl gently to mix; do not shake. dextrose 50 % injection 12.5 g 12.5 g, intravenous, Every 15 min PRN, For blood glucose 41 to 70 mg/dL, Starting on Wed06/30/23 at 0230, May repeat until blood glucose level reaches 100 mg/dL or greater. Push 2 - 3 mL/minute if patient has secure IV access. dextrose 50 % injection 25 g 25 g, intravenous, Every 15 min PRN, For blood glucose less than or equal to 40 mg/dL, Starting on Wed06/30/23 at 0230, May repeat until blood glucose level reaches 100 mg/dL or greater. Push 2 - 3 mL/minute if patient has secure IV access. glucagon (Glucagen) injection 1 mg 1 mg, intramuscular, Every 15 min PRN, low blood sugar - see comments, For blood glucose less than or equal to 40 mg/dL and no IV access, Starting on Wed06/30/23 at 0230, Give until blood glucose is 100 mg/dL or greater. If patient DOES NOT HAVE secure IV access & patient is unconscious, NPO or is unable to eat or drink. glucagon (Glucagen) injection 1 mg 1 mg, intramuscular, Every 15 min PRN, low blood sugar - see comments, For blood glucose 41 to 70 mg/dL and no IV access, Starting on Wed06/30/23 at 0230, Give until blood glucose is 100 mg/dL or greater. If patient DOES NOT HAVE secure IV access & patient is unconscious, NPO or is unable to eat or drink. hydrOXYzine HCL (Atarax) tablet 25 mg 25 mg, oral, Daily PRN, anxiety, Starting on Wed06/30/23 at 1718 1531 (Given - Provider: Beatriz Dow, DEE) morphine injection 2 mg 2 mg, intravenous, Every 6 hours PRN, pain breakthrough, Starting on Wed07/02/23 at 1401 1835 (Given - Provider: Mariah Herrera RN) 0341 (Given - Provider: Grecia Schaffer, DEE)1007 (Given - Provider: Tory Mcmullen, DEE) morphine injection 4 mg (CANCELED) 4 mg, intravenous, Every 4 hours PRN, pain severe (7-10), first line, Starting on Wed07/01/23 at 2138 2300 (Given - Provider: Aliyah Galvan, RN) 0532 (Given - Provider: Aliyah Galvan, RN)0942 (Given - Provider: Mariah Herrera RN)1345 (Given - Provider: Mariah Herrera RN) ondansetron (Zofran) injection 4 mg 4 mg, intravenous, Every 6 hours PRN, nausea/vomiting, first line, Starting on Heena 07/01/23 at 1106, When administering via IV Push, administer over 3-5 minutes. 1532 (Given - Provider: Beatriz Dow RN) 0532 (Given - Provider: Aliyah Galvan RN)1120 (Given - Provider: Mariah Herrera RN) oxyCODONE-acetaminophen (Percocet) 5-325 mg per tablet 1 tablet(Linked Group 2) 1 tablet, oral, Every 4 hours PRN, pain moderate (4-6), first line, Starting on Wed07/02/23 at 1401, If ordered PRN for pain, nurse is permitted to administer this medication for higher pain scores based on patient preference? Yes 1647 (See Alternative - Provider: Mariah Herrera RN)213 (See Alternative - Provider: Grecia Schaffer RN) 0605 (See Alternative - Provider: Grecia Schaffer, DEE)1145 (See Alternative - Provider: Tory Mcmullen, DEE) oxyCODONE-acetaminophen (Percocet) 5-325 mg per tablet 2 tablet(Linked Group 2) 2 tablet, oral, Every 4 hours PRN, pain severe (7-10), first line, Starting on Wed07/02/23 at 1401, If ordered PRN for pain, nurse is permitted to administer this medication for higher pain scores based on patient preference? Yes 1647 (Given - Provider: Mariah Herrera RN)2136 (Given - Provider: Grecia Schaffer, DEE) 0605 (Given - Provider: Grecia Schaffer, DEE)1145 (Given - Provider: Tory Mcmullen, DEE) sodium chloride 0.9% flush 10 mL 10 mL, intra-catheter, As needed, line care, After each use (each lumen) using push-pause method., Starting on Wed06/30/23 at 0236, Flush port according to flush policy: to maintain line patency. traMADol (Ultram) tablet 50 mg (CANCELED) 50 mg, oral, Every 6 hours PRN, pain severe (7-10), first line, Starting on Wed06/30/23 at 0243, If ordered PRN for pain, nurse is permitted to administer this medication for higher pain scores based on patient preference? Yes 0120 (Given - Provider: Mayda Balbuena LPN)0657 (Given - Provider: Mayda Balbuena LPN)0846 (Not Given - Provider: Beatriz Dow RN - Reason: Patient/family refused) traMADol (Ultram) tablet 50 mg (CANCELED) 50 mg, oral, Every 4 hours PRN, pain severe (7-10), first line, Starting on Heena 07/01/23 at 1106, If ordered PRN for pain, nurse is permitted to administer this medication for higher pain scores based on patient preference? Yes 1532 (Given - Provider: Beatriz Dow RN) 0352 (Given - Provider: Andrew Potts RN) Linked Groups Order Group 1: acetaminophen (Tylenol) oral liquid 650 mg (CANCELED) 650 mg, oral, Every 4 hours PRN, pain mild (1-3), first line, or fever greater than 38 C, Starting on Wed06/30/23 at 2056 Or acetaminophen (Tylenol) tablet 650 mg (CANCELED)Jump to med 650 mg, oral, Every 4 hours PRN, pain mild (1-3), first line, or fever greater than 38 C, Starting on Wed06/30/23 at 205, If ordered PRN for pain, nurse is permitted to administer this medication for higher pain scores based on patient preference? Yes Group 2: oxyCODONE-acetaminophen (Percocet) 5-325 mg per tablet 1 tabletJump to med 1 tablet, oral, Every 4 hours PRN, pain moderate (4-6), first line, Starting on Wed07/02/23 at 1401, If ordered PRN for pain, nurse is permitted to administer this medication for higher pain scores based on patient preference? Yes Or oxyCODONE-acetaminophen (Percocet) 5-325 mg per tablet 2 tabletJump to med 2 tablet, oral, Every 4 hours PRN, pain severe (7-10), first line, Starting on Wed07/02/23 at 1401, If ordered PRN for pain, nurse is permitted to administer this medication for higher pain scores based on patient preference? Yes Care Teams (unrecognized sec tion and content) Team Status: Active Member Role Status Dates Thomas Calix MD Primary Care Provider Active Team Status: Inactive Member Role Status Dates Jaquan Morrow NP-C Primary Care Provider Active Start: May 30, 2023 End: May 31, 2023 Gabino Parker APRN Emergency Provider Active Start: May 30, 2023 End: May 31, 2023 Team Status: Active Member Role Status Dates Thomas Calix MD Primary Care Provider Active Start: July 17, 2023 hSaan Sabillon PA-C Emergency Provider Active Start: July 17, 2023 Tahir Whitt MD Admit Provider, Attending Provider Active Start: July 17, 2023 Counseling Program Leader Relationship Specialty Start Date End Date Shanna June FNP [address] [place] [address] PCP - General Nurse Practitioner - [facility] 01/30/20 Counseling Program Leader Relationship Specialty Start Date End Date Shanna June CNP [address] [place] [address] PCP - General Family Practice 01/31/20 Antelmo Davey [address] [place] [phone] (Fax) 09/25/19 [place] [address] [place] [address] Consulting General Surgery 09/25/19 Shanna June CNP [address] [place] [address] Referring Family Practice 10/19/19 Counseling Program Leader Relationship Specialty Start Date End Date Shanna Juen CNP [address] [place] [address] PCP - General Family Practice 01/31/20 Antelmo Davey MD [address] [place] [address] (Fax) 09/25/19 [place] [address] [place] [address] Consulting General Surgery 09/25/19 Shanna June, STORE CUSTODIAN [address] [place] [address] Referring Family Practice 10/19/19 Counseling Program Leader Relationship Specialty Start Date End Date Shanna June CNP [address] [place] [address] PCP - General Family Practice 01/31/20 Antelmo Davey MD [address] [place] [address] (Fax) 09/25/19 [place] [address] [place] [address] Consulting General Surgery 09/25/19 Shanna June CNP [address] [place] [address] Referring Family Practice 10/19/19 Counseling Program Leader Relationship Specialty Start Date End Date Shanna June CNP [address] [place] [address] PCP - General Family Practice 01/31/20 Antelmo Davey MD [address] [place] [address] (Fax) 09/25/19 [place] [address] [place] [address] Consulting General Surgery 09/25/19 Shanna June CNP [address] [place] [address] Referring Family Practice 10/19/19 Counseling Program Leader Relationship Specialty Start Date End Date Wally Foley [address] [place] [place] [address] PCP - General Specialist 07/27/21 Counseling Program Leader Relationship Specialty Start Date End Date Shanna June CNP [address] [place] [address] PCP - General Family Practice 01/31/20 Antelmo Davey MD [address] [facility] [place] [address] (Fax) 09/25/19 [place] [address] [facility] [place] [address] Consulting General Surgery 09/25/19 Shanna June CNP [address] [place] [address] Referring Family Practice 10/19/19 Counseling Program Leader Relationship Specialty Start Date End Date Shanna June CNP [address] [place] [address] PCP - General Family Practice 01/31/20 Antelmo Davey MD [address] [facility] [place] [address] (Fax) 09/25/19 [place] [address] [place] [address] Consulting General Surgery 09/25/19 Shanna June CNP [address] [place] [address] Referring Family Practice 10/19/19 Counseling Program Leader Relationship Specialty Start Date End Date Shanna June CNP [address] [place] [address] PCP - General Family Practice 01/31/20 Antelmo Davey MD [address] [place] [address] (Fax) 09/25/19 [place] [address] [place] [address] Consulting General Surgery 09/25/19 Shanna June, STORE CUSTODIAN [address] [place] [address] Referring Family Practice 10/19/19 Counseling Program Leader Relationship Specialty Start Date End Date Shanna June CNP [address] [place] [address] PCP - General Family Practice 01/31/20 Antelmo Davey MD [address] [facility] [place] [address] (Fax) 09/25/19 [place] [address] [place] [address] Consulting General Surgery 09/25/19 Shanna June, STORE CUSTODIAN [address] [place] [address] Referring Family Practice 10/19/19 Counseling Program Leader Relationship Specialty Start Date End Date Shanna June CNP [address] [place] [address] PCP - General Family Practice 01/31/20 Antelmo Davey MD [address] [place] [address] (Fax) 09/25/19 [place] [address] [place] [address] Consulting General Surgery 09/25/19 Slade ShannaBETH tomlin [address] [place] [address] Referring Family Practice 10/19/19 Counseling Program Leader Relationship Specialty Start Date End Date SladeDenyBETH pressley [address] [place] [address] PCP - General Family Practice 01/31/20 Antelmo Davey MD [address] [facility] [place] [address] 09/25/19 [place] [address] [place] [address] Consulting General Surgery 09/25/19 Shanna June CNP [address] [place] [address] Referring Family Practice 10/19/19 Counseling Program Leader Relationship Specialty Start Date End Date Wally Foley Lesia [address] [facility] [place] [address] PCP - General Specialist 07/27/21 Counseling Program Leader Relationship Specialty Start Date End Date Shanna June CNP [address] [place] [address] PCP - General Family Practice 01/31/20 Antelmo Davey MD [address] [facility] [place] [address] 09/25/19 [place] [address] [place] [address] Consulting General Surgery 09/25/19 Shanna June CNP [address] [place] [address] Referring Family Practice 10/19/19 Counseling Program Leader Relationship Specialty Start Date End Date Shanna June CNP [address] [place] [address] PCP - General Family Practice 01/31/20 Antelmo Davey MD [address] [facility] [place] [address] (Fax) 09/25/19 [place] [address] [place] [address] Consulting General Surgery 09/25/19 Shanna June CNP [address] [place] [address] Referring Family Practice 10/19/19 Counseling Program Leader Relationship Specialty Start Date End Date Shanna June CNP [address] [place] [address] PCP - General Family Practice 01/31/20 Antelmo Davey MD [address] [facility] [place] [address] (Fax) 09/25/19 [place] [address] [place] [address] Consulting General Surgery 09/25/19 Shanna June CNP [address] [place] [address] Referring Family Practice 10/19/19 Counseling Program Leader Relationship Specialty Start Date End Date Shanna June CNP [address] [place] [address] PCP - General Family Practice 01/31/20 Antelmo Davey MD [address] [facility] [place] [address] (Fax) 09/25/19 [place] [address] [facility] [place] [address] Consulting General Surgery 09/25/19 Shanna June CNP [address] [place] [address] Referring Family Practice 10/19/19 Counseling Program Leader Relationship Specialty Start Date End Date Slade BETH Otero [address] [place] [address] PCP - General Family Medicine 01/31/20 Antelmo Davey MD [address] [place] [address] 09/25/19 [place] [address] [facility] [place] [address] Consulting General Surgery 09/25/19 Shanna June CNP [address] [place] [address] Referring Family Medicine 10/19/19 Counseling Program Leader Relationship Specialty Start Date End Date Shanna June CNP [address] [place] [address] PCP - General Family Medicine 01/31/20 Antelmo Davey MD [address] [facility] [place] [address] (Fax) 09/25/19 [place] [address] [facility] [place] [address] Consulting General Surgery 09/25/19 Shanna June CNP [address] [place] [address] Referring Family Medicine 10/19/19 Counseling Program Leader Relationship Specialty Start Date End Date Shanna June CNP [address] [place] [address] PCP - General Family Medicine 01/31/20 Antelmo Davey MD [address] [facility] [place] [address] (Fax) 09/25/19 [place] [address] [place] [address] Consulting General Surgery 09/25/19 Slade Shanna, STORE CUSTODIAN [address] [place] [address] Referring Family Medicine 10/19/19 Counseling Program Leader Relationship Specialty Start Date End Date Slade Shanna, STORE CUSTODIAN [address] [place] [address] PCP - General Family Medicine 01/31/20 Antelmo Davey MD [address] [facility] [place] [address] (Fax) 09/25/19 [place] [address] [place] [address] Consulting General Surgery 09/25/19 Slade Shanna, STORE CUSTODIAN [address] [place] [address] Referring Family Medicine 10/19/19 Counseling Program Leader Relationship Specialty Start Date End Date SladeDenverShanna, STORE CUSTODIAN [address] [place] [address] PCP - General Family Medicine 01/31/20 Antelmo Davey MD [address] [facility] [place] [address] (Fax) 09/25/19 [place] [address] [place] [address] Consulting General Surgery 09/25/19 Shanna June, STORE CUSTODIAN [address] [place] [address] Referring Family Medicine 10/19/19 Counseling Program Leader Relationship Specialty Start Date End Date Shanna June, STORE CUSTODIAN [address] [place] [address] PCP - General Family Medicine 01/31/20 Antelmo Davey MD [address] [facility] [place] [address] (Fax) 09/25/19 [place] [address] [place] [address] Consulting General Surgery 09/25/19 SladeShanna, [facility] [address] [place] [address] Referring Family Medicine 10/19/19 Counseling Program Leader Relationship Specialty Start Date End Date Shanna June, STORE CUSTODIAN [address] [place] [address] PCP - General Family Medicine 01/31/20 Antelmo Davey MD [address] [place] [address] (Fax) 09/25/19 [place] [address] [place] [address] Consulting General Surgery 09/25/19 SladeDenyie, STORE CUSTODIAN [address] [place] [address] Referring Family Medicine 10/19/19 Counseling Program Leader Relationship Specialty Start Date End Date Shanna June CNP [address] [place] [address] PCP - General Family Medicine 01/31/20 Antelmo Davey MD [address] [place] [address] (Fax) 09/25/19 [place] [address] [place] [address] Consulting General Surgery 09/25/19 Shanna June, STORE CUSTODIAN [address] [place] [address] Referring Family Medicine 10/19/19 Counseling Program Leader Relationship Specialty Start Date End Date Shanna June CNP [address] [place] [address] PCP - General Family Medicine 01/31/20 Antelmo Davey MD [address] [place] [address] (Fax) 09/25/19 [place] [address] [place] [address] Consulting General Surgery 09/25/19 Shanna June CNP [address] [place] [address] Referring Family Medicine 10/19/19 Counseling Program Leader Relationship Specialty Start Date End Date Shanna June CNP [address] [place] [address] PCP - General Family Medicine 01/31/20 Antelmo Davey MD [address] [place] [address] (Fax) 09/25/19 [place] [address] [place] [address] Consulting General Surgery 09/25/19 Shanna June, STORE CUSTODIAN [address] [place] [address] Referring Family Medicine 10/19/19 Counseling Program Leader Relationship Specialty Start Date End Date Shanna June, STORE CUSTODIAN [address] [place] [address] PCP - General Family Medicine 01/31/20 Antelmo Davey MD [address] [place] [address] (Fax) 09/25/19 [place] [address] [facility] [place] [address] Consulting General Surgery 09/25/19 Shanna June, STORE CUSTODIAN [address] [place] [address] Referring Family Medicine 10/19/19 Counseling Program Leader Relationship Specialty Start Date End Date Shanna June, STORE CUSTODIAN [address] [place] [address] PCP - General Family Medicine 01/31/20 Antelmo Davey MD [address] [place] [address] (Fax) 09/25/19 [place] [address] [place] [address] Consulting General Surgery 09/25/19 Shanna June, STORE CUSTODIAN [address] [place] [address] Referring Family Medicine 10/19/19 Counseling Program Leader Relationship Specialty Start Date End Date Wally Foley MD [address] [place] [facility] [place] [address] PCP - General Family Medicine 01/19/22 Antelmo Davey MD [address] [place] [address] (Fax) 09/25/19 [place] [address] [place] [address] Consulting General Surgery 09/25/19 Shanna June, STORE CUSTODIAN [address] [place] [address] Referring Family Medicine 10/19/19 Counseling Program Leader Relationship Specialty Start Date End Date Wally Foley MD [address] [place] [facility] [place] [address] PCP - General Family Medicine 01/19/22 Antelmo Davey MD [address] [place] [address] (Fax) 09/25/19 [place] [address] [place] [address] Consulting General Surgery 09/25/19 Shanna June, STORE CUSTODIAN [address] [place] [address] Referring Family Medicine 10/19/19 Counseling Program Leader Relationship Specialty Start Date End Date Wally Foley MD [address] [place] [address] PCP - General Family Medicine 01/19/22 Antelmo Davey MD [address] [place] [address] (Fax) 09/25/19 [place] [address] [place] [address] Consulting General Surgery 09/25/19 Shanna Jnue, STORE CUSTODIAN [address] [place] [address] Referring Family Medicine 10/19/19 Counseling Program Leader Relationship Specialty Start Date End Date Wally Foley MD [address] [place] [address] PCP - General Family Medicine 01/19/22 Antelmo Davey MD [address] [place] [address] (Fax) 09/25/19 [place] [address] [facility] [place] [address] Consulting General Surgery 09/25/19 Shanna June, STORE CUSTODIAN [address] [place] [address] Referring Family Medicine 10/19/19 Counseling Program Leader Relationship Specialty Start Date End Date Wally Foley MD [address] [place] [address] PCP - General Family Medicine 01/19/22 Antelmo Davey MD [address] [place] [address] (Fax) 09/25/19 [place] [address] [place] [address] Consulting General Surgery 09/25/19 Shanna June, STORE CUSTODIAN [address] [place] [address] Referring Family Medicine 10/19/19 Counseling Program Leader Relationship Specialty Start Date End Date Wally Foley MD [address] [place] [address] PCP - General Family Medicine 01/19/22 Antelmo Davey MD [address] [place] [address] (Fax) 09/25/19 [place] [address] [facility] [place] [address] Consulting General Surgery 09/25/19 Shanna June, STORE CUSTODIAN [address] [place] [address] Referring Family Medicine 10/19/19 Counseling Program Leader Relationship Specialty Start Date End Date Wally Foley MD [address] [place] [facility] [place] [address] PCP - General Family Medicine 01/19/22 Antelmo Davey MD [address] [facility] [address] (Fax) 09/25/19 [place] [address] [facility] [place] [address] Consulting General Surgery 09/25/19 Shanna June, STORE CUSTODIAN [address] [place] [address] Referring Family Medicine 10/19/19 Counseling Program Leader Relationship Specialty Start Date End Date Walyl Foley MD [address] [place] [address] PCP - General Family Medicine 01/19/22 Antelmo Davey MD [address] [place] [address] (Fax) 09/25/19 [place] [address] [place] [address] Consulting General Surgery 09/25/19 Shanna June, STORE CUSTODIAN [address] [place] [address] Referring Family Medicine 10/19/19 Counseling Program Leader Relationship Specialty Start Date End Date Wally Foley MD [address] [place] [address] PCP - General Family Medicine 01/19/22 Antelmo Davey MD [address] [place] [address] (Fax) 09/25/19 [place] [address] [facility] [place] [address] Consulting General Surgery 09/25/19 Shanna June, STORE CUSTODIAN [address] [place] [address] Referring Family Medicine 10/19/19 Counseling Program Leader Relationship Specialty Start Date End Date Wally Foley MD [address] [place] [address] PCP - General Family Medicine 01/19/22 Antelmo Davey MD [address] [place] [address] (Fax) 09/25/19 [place] [address] [facility] [place] [address] Consulting General Surgery 09/25/19 Shanna June, STORE CUSTODIAN [address] [place] [address] Referring Family Medicine 10/19/19 Counseling Program Leader Relationship Specialty Start Date End Date Wally Foley MD [address] [place] [address] PCP - General Family Medicine 01/19/22 Antelmo Davey MD [address] [place] [address] (Fax) 09/25/19 [place] [address] [facility] [place] [address] Consulting General Surgery 09/25/19 Shanna June, STORE CUSTODIAN [address] [place] [address] Referring Family Medicine 10/19/19 Counseling Program Leader Relationship Specialty Start Date End Date Wally Foley MD [address] [place] [address] PCP - General Family Medicine 01/19/22 Antelmo Davey MD [address] [place] [address] 09/25/19 [place] [address] [facility] [place] [address] Consulting General Surgery 09/25/19 Shanna June, STORE CUSTODIAN [address] [place] [address] Referring Family Medicine 10/19/19 Agustin Valentino 112 [facility] 150 [place] [address] Referring Family Medicine 05/13/22 Counseling Program Leader Relationship Specialty Start Date End Date Jaquan Morrow [address] [place] [address] PCP - General 06/16/22 Antelmo Davye MD [address] [place] [address] 09/25/19 [place] [address] [place] [address] Consulting General Surgery 09/25/19 Shanna June, STORE CUSTODIAN [address] [place] [address] Referring Family Medicine 10/19/19 Agustin Valentino 112 [facility] 150 [place] [address] Referring Family Medicine 05/13/22 Counseling Program Leader Relationship Specialty Start Date End Date Jaquan Morrow [address] [place] [address] PCP - General 06/16/22 Antelmo Davey MD [address] [place] [address] (Fax) 09/25/19 [place] [address] [place] [address] Consulting General Surgery 09/25/19 Shanna June, STORE CUSTODIAN [address] [place] [address] Referring Family Medicine 10/19/19 Agustin Valentino 112 [facility] 150 [place] [address] Referring Family Medicine 05/13/22 Counseling Program Leader Relationship Specialty Start Date End Date Jaquan Morrow [address] [place] [address] PCP - General 06/16/22 Antelmo Davey MD [address] [place] [address] (Fax) 09/25/19 [place] [address] [place] [address] Consulting General Surgery 09/25/19 Shanna June, STORE CUSTODIAN [address] [place] [address] Referring Family Medicine 10/19/19 Agustin Valentino [address] [facility] 150 [place] [address] Referring Family Medicine 05/13/22 Counseling Program Leader Relationship Specialty Start Date End Date Jaquan Morrow [address] [place] [address] PCP - General 06/16/22 Antelmo Davey MD [address] [place] [address] 09/25/19 [place] [address] [facility] [place] [address] Consulting General Surgery 09/25/19 Shanna June, STORE CUSTODIAN [address] [place] [address] Referring Family Medicine 10/19/19 Agustin Valentino [address] [facility] [address] [place] [address] Referring Family Medicine 05/13/22 Counseling Program Leader Relationship Specialty Start Date End Date Jaquan Morrow [address] [place] [address] PCP - General 06/16/22 Antelmo Davey MD [address] [place] [address] 09/25/19 [place] [address] [facility] [place] [address] Consulting General Surgery 09/25/19 Shanna June, STORE CUSTODIAN [address] [place] [address] Referring Family Medicine 10/19/19 Agustin Valentino 112 [facility] 150 [place] [address] Referring Family Medicine 05/13/22 Counseling Program Leader Relationship Specialty Start Date End Date Jaquan Morrow [address] [place] [address] PCP - General 06/16/22 Antelmo Davey MD [address] [place] [address] 09/25/19 [place] [address] [place] [address] Consulting General Surgery 09/25/19 Shanna June, STORE CUSTODIAN [address] [place] [address] Referring Family Medicine 10/19/19 Agustin Valentino [address] [address] [place] [address] Referring Family Medicine 05/13/22 Counseling Program Leader Relationship Specialty Start Date End Date Jaquan Morrow [address] [place] [address] PCP - General 06/16/22 Antelmo Davey MD [address] [place] [address] 09/25/19 [place] [address] [facility] [place] [address] Consulting General Surgery 09/25/19 Shanna June, STORE CUSTODIAN [address] [place] [address] Referring Family Medicine 10/19/19 Agustin Valentino [address] [address] [place] [address] Referring Family Medicine 05/13/22 Counseling Program Leader Relationship Specialty Start Date End Date Jaquan Morrow [address] [place] [address] PCP - General 06/16/22 Antelmo Davey MD [address] [place] [address] (Fax) 09/25/19 [place] [address] [place] [address] Consulting General Surgery 09/25/19 Shanna June, STORE CUSTODIAN [address] [place] [address] Referring Family Medicine 10/19/19 Agustin Valentino [address] [place] [address] [place] [address] Referring Family Medicine 05/13/22 Counseling Program Leader Relationship Specialty Start Date End Date Jaquan Morrow [address] [place] [address] PCP - General 06/16/22 Antelmo Davey MD [address] [facility] [place] [address] (Fax) 09/25/19 [place] [address] [place] [address] Consulting General Surgery 09/25/19 Shanna June, STORE CUSTODIAN [address] [place] [address] Referring Family Medicine 10/19/19 Agustin Valentino [address] [place] [address] [place] [address] Referring Family Medicine 05/13/22 Counseling Program Leader Relationship Specialty Start Date End Date Jaquan Morrow [address] [place] [address] PCP - General 06/16/22 Antelmo Davey MD [address] [place] [address] (Fax) 09/25/19 [place] [address] [place] [address] Consulting General Surgery 09/25/19 Shanna June, BETH [address] [place] [address] Referring Family Medicine 10/19/19 Agustin Valentino [address] [place] [address] [place] [address] Referring Family Medicine 05/13/22 Counseling Program Leader Relationship Specialty Start Date End Date Jaquan Morrow [address] [place] [address] PCP - General 06/16/22 Antelmo Davey MD [address] [place] [address] (Fax) 09/25/19 [place] [address] [place] [address] Consulting General Surgery 09/25/19 Shanna June, BETH [address] [place] [address] Referring Family Medicine 10/19/19 Agustin Valentino [address] [facility] 150 [place] [address] Referring Family Medicine 05/13/22 Counseling Program Leader Relationship Specialty Start Date End Date Jaquan Morrow [address] [place] [address] PCP - General 06/16/22 Antelmo Davey MD [address] [place] [address] (Fax) 09/25/19 [place] [address] [place] [address] Consulting General Surgery 09/25/19 Shanna June CNP [address] [place] [address] Referring Family Medicine 10/19/19 Agustin Valentino 112 [facility] 150 [place] [address] Referring Family Medicine 05/13/22 Counseling Program Leader Relationship Specialty Start Date End Date Jaquan Morrow [address] [place] [address] PCP - General 06/16/22 Antelmo Davey MD [address] [place] [address] (Fax) 09/25/19 [place] [address] [place] [address] Consulting General Surgery 09/25/19 Shanna June CNP [address] [place] [address] Referring Family Medicine 10/19/19 Agustin Valentino PA [address] [facility] 150 [place] [address] Referring Family Medicine 05/13/22 Counseling Program Leader Relationship Specialty Start Date End Date Jaquan Morrow [address] [place] [address] PCP - General 06/16/22 Antelmo Davey MD [address] [place] [address] 09/25/19 [place] [address] [place] [address] Consulting General Surgery 09/25/19 Shanna June, BETH [address] [place] [address] Referring Family Medicine 10/19/19 Agustin Valentino PA [address] [place] [address] Referring Family Medicine 05/13/22 Counseling Program Leader Relationship Specialty Start Date End Date Wally Foley [address] [place] [address] PCP - General Specialist 07/27/21 Counseling Program Leader Relationship Specialty Start Date End Date Shanna June FNP 10[address] [place] [address] PCP - General Nurse Practitioner - Family 01/30/20 Counseling Program Leader Relationship Specialty Start Date End Date Jaquan Morrow [address] [place] [address] PCP - General 06/16/22 Antelmo Davey MD 521 [place] [address] (Fax) 09/25/19 [place] [address] [place] [address] Consulting General Surgery 09/25/19 Shanna June CNP [address] [place] [address] Referring Family Medicine 10/19/19 Agustin Valentino PA [address] [place] [address] [place] [address] Referring Family Medicine 05/13/22 Counseling Program Leader Relationship Specialty Start Date End Date Jaquan Morrow [address] [place] [address] PCP - General 06/16/22 Antelmo Davey MD 521 [place] [address] (Fax) 09/25/19 [place] [address] [place] [address] Consulting General Surgery 09/25/19 Shanna June, BETH [address] [place] [address] Referring Family Medicine 10/19/19 Agustin Valentino PA [address] [facility] 150 [place] [address] Referring Family Medicine 05/13/22 Counseling Program Leader Relationship Specialty Start Date End Date Jaquan Morrow [address] [place] [address] PCP - General 06/16/22 Antelmo Davey MD [address] [place] [address] (Fax) 09/25/19 [place] [address] [place] [address] Consulting General Surgery 09/25/19 Shanna June, BETH [address] [place] [address] Referring Family Medicine 10/19/19 Agustin Valentino PA [address] [facility] 150 [place] [address] Referring Family Medicine 05/13/22 Counseling Program Leader Relationship Specialty Start Date End Date Jaquan Morrow [address] [place] [address] PCP - General 06/16/22 Antelmo Davey MD [address] [place] [address] 09/25/19 [place] [address] [place] [address] Consulting General Surgery 09/25/19 Shanna June, STORE CUSTODIAN [address] [place] [address] Referring Family Medicine 10/19/19 Agutsin Valentino PA [address] [facility] 150 [place] [address] Referring Family Medicine 05/13/22 Counseling Program Leader Relationship Specialty Start Date End Date Jaquan Morrow [address] [place] [address] PCP - General 06/16/22 Antelmo Davey MD [address] [place] [address] (Fax) 09/25/19 [place] [address] [place] [address] Consulting General Surgery 09/25/19 Shanna June, STORE CUSTODIAN [address] [place] [address] Referring Family Medicine 10/19/19 Agustin Valentino PA [address] [place] [address] [place] [address] Referring Family Medicine 05/13/22 Counseling Program Leader Relationship Specialty Start Date End Date Jaquan Morrow [address] [place] [address] PCP - General 06/16/22 Antelmo Davey MD [address] [place] [address] (Fax) 09/25/19 [place] [address] [place] [address] Consulting General Surgery 09/25/19 Shanna June, BETH [address] [place] [address] Referring Family Medicine 10/19/19 Agustin Valentino PA [address] [place] [address] [place] [address] Referring Family Medicine 05/13/22 Counseling Program Leader Relationship Specialty Start Date End Date Jaquan Morrow [address] [place] [address] PCP - General 06/16/22 Antelmo Davey MD [address] [place] [address] (Fax) 09/25/19 [place] [address] [place] [address] Consulting General Surgery 09/25/19 Shanna June, BETH [address] [place] [address] Referring Family Medicine 10/19/19 Agustin Valentino PA [address] [address] Referring Family Medicine 05/13/22 Counseling Program Leader Relationship Specialty Start Date End Date Jaquan Morrow [address] [place] [address] PCP - General 06/16/22 Antelmo Davey MD [address] [place] [address] (Fax) 09/25/19 [place] [address] [place] [address] Consulting General Surgery 09/25/19 Shanna June CNP [address] [place] [address] Referring Family Medicine 10/19/19 Agustin Valentino PA [address] [place] [address] Referring Family Medicine 05/13/22 Counseling Program Leader Relationship Specialty Start Date End Date Jaquan Morrow [address] [place] [address] PCP - General 06/16/22 Antelmo Davey MD [address] [place] [address] (Fax) 09/25/19 [place] [address] [place] [address] Consulting General Surgery 09/25/19 Shanna June, BETH [address] [place] [address] Referring Family Medicine 10/19/19 Agustin Valentino PA [address] [address] [place] [address] Referring Family Medicine 05/13/22 Counseling Program Leader Relationship Specialty Start Date End Date Jaquan Morrow [address] [place] [address] PCP - General 06/16/22 Antelmo Davey MD [address] [place] [address] (Fax) 09/25/19 [place] [address] [place] [address] Consulting General Surgery 09/25/19 Shanna June, BETH [address] [place] [address] Referring Family Medicine 10/19/19 Agustin Valentino PA [address] [address] [place] [address] Referring Family Medicine 05/13/22 Counseling Program Leader Relationship Specialty Start Date End Date Jaquan Morrow [address] [place] [address] PCP - General 06/16/22 Antelmo Davey MD [address] [place] [address] 09/25/19 [place] [address] [place] [address] Consulting General Surgery 09/25/19 Shanna June, BETH [address] [place] [address] Referring Family Medicine 10/19/19 Agustin Valentino PA [address] [place] [address] [place] [address] Referring Family Medicine 05/13/22 Counseling Program Leader Relationship Specialty Start Date End Date Jaquan Morrow [address] [place] [address] PCP - General 06/16/22 Antelmo Davey MD [address] [place] [address] 09/25/19 [place] [address] [place] [address] Consulting General Surgery 09/25/19 Shanna June, STORE CUSTODIAN [address] [place] [address] Referring Family Medicine 10/19/19 Agustin Valentino PA 112 [facility] [place] [address] Referring Family Medicine 05/13/22 Counseling Program Leader Relationship Specialty Start Date End Date Jaquan Morrow [address] [place] [address] PCP - General 06/16/22 Antelmo Davey MD [address] [place] [address] 09/25/19 [place] [address] [place] [address] Consulting General Surgery 09/25/19 Shanna June, BETH [address] [place] [address] Referring Family Medicine 10/19/19 Agustin Valentino PA [address] [place] [address] [place] [address] Referring Family Medicine 05/13/22 Counseling Program Leader Relationship Specialty Start Date End Date Jaquan Morrow [address] [place] [address] PCP - General 06/16/22 Antelmo Davey MD [address] [place] [address] (Fax) 09/25/19 [place] [address] [place] [address] Consulting General Surgery 09/25/19 Shanna June, BETH [address] [place] [address] Referring Family Medicine 10/19/19 Agustin Valentino PA [address] [facility] 150 [place] [address] Referring Family Medicine 05/13/22 Counseling Program Leader Relationship Specialty Start Date End Date Cristhian, Jaquan [address] [place] [address] PCP - General 06/16/22 Antelmo Davey MD [address] [place] [address] (Fax) 09/25/19 [place] [address] [place] [address] Consulting General Surgery 09/25/19 Shanna June CNP [address] [place] [address] Referring Family Medicine 10/19/19 Agustin Valentino PA [address] [facility] 150 [place] [address] Referring Family Medicine 05/13/22 Counseling Program Leader Relationship Specialty Start Date End Date Jaquan Morrow [address] [place] [address] PCP - General 06/16/22 Antelmo Davey MD [address] [place] [address] 09/25/19 [place] [address] [place] [address] Consulting General Surgery 09/25/19 Shanna June, BETH [address] [place] [address] Referring Family Medicine 10/19/19 Agustin Valentino PA [address] [facility] 150 [place] [address] Referring Family Medicine 05/13/22 Counseling Program Leader Relationship Specialty Start Date End Date Jaquan Morrow [address] [place] [address] PCP - General 06/16/22 Antelmo Davey MD [address] [place] [address] (Fax) 09/25/19 [place] [address] [address] [place] [address] Consulting General Surgery 09/25/19 Shanna June, BETH [address] [place] [address] Referring Family Medicine 10/19/19 Agustin Valentino PA 112 [facility] 150 [place] [address] Referring Family Medicine 05/13/22 Counseling Program Leader Relationship Specialty Start Date End Date Jaquan Morrow [address] [place] [address] PCP - General 06/16/22 Antelmo Davey MD [address] [place] [address] 09/25/19 [place] [address] [place] [address] Consulting General Surgery 09/25/19 Shanna June CNP [address] [place] [address] Referring Family Medicine 10/19/19 Agustin Valentino PA [address] [facility] 150 [place] [address] Referring Family Medicine 05/13/22 Counseling Program Leader Relationship Specialty Start Date End Date Jaquan Morrow [address] [place] [address] PCP - General 06/16/22 Antelmo Davey MD [address] [place] [address] 09/25/19 [place] [address] [place] [address] Consulting General Surgery 09/25/19 Shanna June, BETH [address] [place] [address] Referring Family Medicine 10/19/19 Agustin Valentino PA [address] [place] [address] Referring Family Medicine 05/13/22 Counseling Program Leader Relationship Specialty Start Date End Date Jaquan Morrow [address] [place] [address] PCP - General 06/16/22 Antelmo Davey MD [address] [place] [address] 09/25/19 [place] [address] [place] [address] Consulting General Surgery 09/25/19 Shanna June, STORE CUSTODIAN [address] [place] [address] Referring Family Medicine 10/19/19 Agustin Valentino PA [address] [place] [address] Referring Family Medicine 05/13/22 Counseling Program Leader Relationship Specialty Start Date End Date Jaquan Morrow, ETHNOARCHAEOLOGY PROFESSOR.STORE CUSTODIAN [address] [place] [address] PCP - General 06/16/22 Antelmo Davey MD [address] [place] [address] 09/25/19 [place] [address] [place] [address] Consulting General Surgery 09/25/19 Shanna June, BETH [address] [place] [address] Referring Family Medicine 10/19/19 Agustin Valentino PA [address] [facility] 150 [place] [address] Referring Family Medicine 05/13/22 Counseling Program Leader Relationship Specialty Start Date End Date Jaquan Morrow ETHNOARCHAEOLOGY PROFESSOR.STORE CUSTODIAN [address] [place] [address] PCP - General 06/16/22 Antelmo Davey MD [address] [place] [address] (Fax) 09/25/19 [place] [address] [place] [address] Consulting General Surgery 09/25/19 Shanna June, BETH [address] [place] [address] Referring Family Medicine 10/19/19 Agustin Valentino PA [address] [place] [address] Referring Family Medicine 05/13/22 Counseling Program Leader Relationship Specialty Start Date End Date Jaquan Morrow, ETHNOARCHAEOLOGY PROFESSOR.STORE CUSTODIAN [address] [place] [address] PCP - General 06/16/22 Antelmo Davey MD [address] [place] [address] (Fax) 09/25/19 [place] [address] [place] [address] Consulting General Surgery 09/25/19 Shanna June CNP [address] [place] [address] Referring Family Medicine 10/19/19 Agustin Valentino PA [address] [facility] [address] [place] [address] Referring Family Medicine 05/13/22 Counseling Program Leader Relationship Specialty Start Date End Date Jaquan Morrow, ETHNOARCHAEOLOGY PROFESSOR.STORE CUSTODIAN [address] [place] [address] PCP - General 06/16/22 Antelmo Davey MD [address] [place] [address] 09/25/19 [place] [address] [facility] [place] [address] Consulting General Surgery 09/25/19 Shanna June, BETH [address] [place] [address] Referring Family Medicine 10/19/19 Agustin Valentino PA [address] [address] [address] [place] [address] Referring Family Medicine 05/13/22 Counseling Program Leader Relationship Specialty Start Date End Date Jaquan Morrow, ETHNOARCHAEOLOGY PROFESSOR.STORE CUSTODIAN [address] [place] [address] PCP - General 06/16/22 Antelmo Davey MD [address] [place] [address] 09/25/19 [place] [address] [place] [address] Consulting General Surgery 09/25/19 Shanna June, BETH [address] [place] [address] Referring Family Medicine 10/19/19 Agustin Valentino PA [address] [address] [place] [address] Referring Family Medicine 05/13/22 Team Status: Active Member Role Status Dates Jaquan Morrow NP-[place] Primary Care Provider Active Team Status: Inactive Member Role Status Dates Jaquan Morrow NP-[place] Primary Care Provider Active Claus Obrien DO Emergency Provider Active Roseline Mejia DO RES Active Counseling Program Leader Relationship Specialty Start Date End Date Generic Provider, No Assigned MD Gabe [address] [place] [address] PCP - General Family Medicine 01/02/23 Counseling Program Leader Relationship Specialty Start Date End Date Generic Provider, No Assigned PcpMD [address] [place] [address] PCP - General Family Medicine 01/02/23 Team Status: Inactive Member Role Status Dates Jaquan Morrow NP-[place] Primary Care Provider Active Start: February 13, 2023 End: February 13, 2023 Claus Obrien DO Emergency Provider Active Start: February 13, 2023 End: February 13, 2023 Roseline Mejia DO RES Active Start : February 13, 2023 End: February 13, 2023 Team Status: Inactive Member Role Status Dates Jaquan Morrow NP-C Primary Care Provider Active Start: April 06, 2023 End: April 06, 2023 Trace Lowery , [facility]- Emergency Provider Active Start: April 06, 2023 End: April 06, 2023 Counseling Program Leader Relationship Specialty Start Date End Date Generic Provider, No Assigned PcpMD [address] [place] [address] PCP - General Family Medicine 01/02/23 Counseling Program Leader Relationship Specialty Start Date End Date Jaquan Morrow, ETHNOARCHAEOLOGY PROFESSOR.STORE CUSTODIAN [address] [place] [address] PCP - General 06/16/22 Antelmo Davey MD [address] [place] [address] 09/25/19 [place] [address] [place] [address] Consulting General Surgery 09/25/19 Shanna June, BETH [address] [place] [address] Referring Family Medicine 10/19/19 Agustin Valentino PA [address] [address] Referring Family Medicine 05/13/22 Counseling Program Leader Relationship Specialty Start Date End Date Generic Provider, No Assigned PcpMD [address] [place] [address] PCP - General Family Medicine 01/02/23 Counseling Program Leader Relationship Specialty Start Date End Date Jaquan Morrow ETHNOARCHAEOLOGY PROFESSOR.STORE CUSTODIAN [address] [place] [address] PCP - General 06/16/22 Antelmo Davey MD [address] [place] [address] 09/25/19 [place] [address] [place] [address] Consulting General Surgery 09/25/19 Shanna June, BETH [address] [place] [address] Referring Family Medicine 10/19/19 Agustin Valentino PA [address] [place] [address] Referring Family Medicine 05/13/22 Counseling Program Leader Relationship Specialty Start Date End Date Jaquan Morrow, ETHNOARCHAEOLOGY PROFESSOR.STORE CUSTODIAN [address] [place] [address] PCP - General 06/16/22 Antelmo Davey MD [address] [place] [address] 09/25/19 [place] [address] [place] [address] Consulting General Surgery 09/25/19 Shanna June, BETH [address] [place] [address] Referring Family Medicine 10/19/19 Agustin Valentino PA [address] [address] Referring Family Medicine 05/13/22 Counseling Program Leader Relationship Specialty Start Date End Date Jaquan Morrow, ETHNOARCHAEOLOGY PROFESSOR.STORE CUSTODIAN [address] [place] [address] PCP - General 06/16/22 Antelmo Davey MD [address] [place] [address] (Fax) 09/25/19 [place] [address] [place] [address] Consulting General Surgery 09/25/19 Shanna June CNP [address] [place] [address] Referring Family Medicine 10/19/19 Agustin Valentino PA [address] [place] [address] Referring Family Medicine 05/13/22 Counseling Program Leader Relationship Specialty Start Date End Date Jaquan Morrow, ETHNOARCHAEOLOGY PROFESSOR.STORE CUSTODIAN [address] [place] [address] PCP - General 06/16/22 Antelmo Davey MD [address] [place] [id number] 09/25/19 [place] [address] [place] [address] Consulting General Surgery 09/25/19 Shanna June CNP [address] [place] [address] Referring Family Medicine 10/19/19 Agustin Valentino PA [address] [address] [place] [address] Referring Family Medicine 05/13/22 Counseling Program Leader Relationship Specialty Start Date End Date Jaquan Morrow, ETHNOARCHAEOLOGY PROFESSOR.STORE CUSTODIAN [address] [place] [address] PCP - General 06/16/22 Antelmo Davey MD [address] [place] [address] 09/25/19 [place] [address] [place] [address] Consulting General Surgery 09/25/19 Shanna June, BETH [address] [place] [address] Referring Family Medicine 10/19/19 Agustin Valentino PA [address] [address] [place] [address] Referring Family Medicine 05/13/22 Counseling Program Leader Relationship Specialty Start Date End Date Generic Provider, No Assigned PcpMD PCP - General Family Medicine 01/02/23 Counseling Program Leader Relationship Specialty Start Date End Date Jaquan Morrow, ETHNOARCHAEOLOGY PROFESSOR.STORE CUSTODIAN [address] [place] [address] PCP - General 06/16/22 Antelmo Davey MD [address] [facility] [place] [address] 09/25/19 [place] [address] [facility] [address] Consulting General Surgery 09/25/19 Shanna June CNP [address] [place] [address] Referring Family Medicine 10/19/19 Agustin Valentino PA [address] [address] [place] [address] Referring Family Medicine 05/13/22 Counseling Program Leader Relationship Specialty Start Date End Date Generic Provider, No [place] [address] PCP - General Body Service Team Member 06/29/23 Counseling Program Leader Relationship Specialty Start Date End Date Generic Provider, No [place] [address] PCP - General Body Service Team Member 06/29/23 Counseling Program Leader Relationship Specialty Start Date End Date Jaquan Morrow APRN.STORE CUSTODIAN [address] [place] [address] PCP - General 06/16/22 Antelmo Davey MD [address] [facility] [place] [address] 09/25/19 [place] [address] [facility] [address] Consulting General Surgery 09/25/19 Shanna June, BETH [address] [place] [address] Referring Family Medicine 10/19/19 Agustin Valentino PA [address] [facility] [address] [place] [address] Referring Family Medicine 05/13/22 Counseling Program Leader Relationship Specialty Start Date End Date Jaquan Morrow, ETHNOARCHAEOLOGY PROFESSOR.STORE CUSTODIAN [address] [place] [address] PCP - General 06/16/22 Antelmo Davey MD [address] [place] [address] 09/25/19 [place] [address] [place] [address] Consulting General Surgery 09/25/19 Slade Shanna, BETH [address] [place] [address] Referring Family Medicine 10/19/19 Agustin Valentino PA [address] [address] [place] [address] Referring Family Medicine 05/13/22 Counseling Program Leader Relationship Specialty Start Date End Date Jaquan Morrow, ETHNOARCHAEOLOGY PROFESSOR.STORE CUSTODIAN [address] [place] [address] PCP - General 06/16/22 Antelmo Davey MD [address] [place] [address] 09/25/19 [place] [address] [place] [address] Consulting General Surgery 09/25/19 Shanna June, BETH [address] [place] [address] Referring Family Medicine 10/19/19 Agustin Valentino PA [address] [place] [address] Referring Family Medicine 05/13/22 Counseling Program Leader Relationship Specialty Start Date End Date Jaquan Morrow, ETHNOARCHAEOLOGY PROFESSOR.STORE CUSTODIAN [address] [place] [address] PCP - General 06/16/22 Antelmo Davey MD [address] [place] [address] 09/25/19 [place] [address] [place] [address] Consulting General Surgery 09/25/19 Shanna June, BETH [address] [place] [address] Referring Family Medicine 10/19/19 Agustin Valentino PA [address] [place] [address] Referring Family Medicine 05/13/22 Counseling Program Leader Relationship Specialty Start Date End Date Jaquan Morrow ETHNOARCHAEOLOGY PROFESSOR.STORE CUSTODIAN [address] [place] [address] PCP - General 06/16/22 Antelmo Davey MD [address] [place] [address] 09/25/19 [place] [address] [place] [address] Consulting General Surgery 09/25/19 Shanna June CNP [address] [place] [address] Referring Family Medicine 10/19/19 Agustin Valentino PA [address] [place] [address] Referring Family Medicine 05/13/22 Team Status: Inactive Member Role Status Dates Thomas Calix MD Primary Care Provider Active Start: July 17, 2023 End: July 17, 2023 Shaan Sabillon PA-C Emergency Provider Active Start: July 17, 2023 End: July 17, 2023 Camden Rodriguez DO Admit Provider, Attending Provider Active Start: July 17, 2023 End: July 17, 2023 Keven Kimbrough MD Other Provider Active Start: July 17, 2023 End: July 17, 2023 Counseling Program Leader Relationship Specialty Start Date End Date Jaquan Morrow, ETHNOARCHAEOLOGY PROFESSOR.STORE CUSTODIAN [address] [place] [address] PCP - General 06/16/22 Antelmo Davey MD [address] [place] [address] (Fax) 09/25/19 [place] [address] [place] [address] Consulting General Surgery 09/25/19 Shanna June CNP [address] [place] [address] Referring Family Medicine 10/19/19 Agustin Valentino PA [address] [place] [address] Referring Family Medicine 05/13/22 Team Status: Inactive Member Role Status Dates Thomas Calix MD Primary Care Provider Active Start: July 31, 2023 End: July 31, 2023 Jeramy Cunningham DO Emergency Provider Active Sta rt: July 31, 2023 End: July 31, 2023 Counseling Program Leader Relationship Specialty Start Date End Date Thomas Calix MD [address] [place] [address] PCP - General Family Medicine 07/30/23 Antelmo Davey MD [address] [place] [address] 09/25/19 [place] [address] [place] [address] Consulting General Surgery 09/25/19 Shanna June CNP [address] [place] [address] Referring Family Medicine 10/19/19 Agustin Valentino PA [address] [place] [address] Referring Family Medicine 05/13/22 Counseling Program Leader Relationship Specialty Start Date End Date Thomas Calix MD [address] [place] [address] PCP - General Family Medicine 07/30/23 Antelmo Davey MD [address] [place] [phone] (Fax) 09/25/19 [place] [address] [place] [address] Consulting General Surgery 09/25/19 Shanna June CNP [address] [place] [address] Referring Family Medicine 10/19/19 Agustin Valentino PA [address] [address] Referring Family Medicine 05/13/22 Counseling Program Leader Relationship Specialty Start Date End Date Thomas Calix MD [address] [place] [address] PCP - General Family Medicine 07/30/23 Antelmo Davey MD [address] [place] [address] (Fax) 09/25/19 [place] [address] [place] [address] Consulting General Surgery 09/25/19 Shanna June CNP [address] [place] [address] Referring Family Medicine 10/19/19 Agustin Valentino PA [address] [facility] [address] [place] [address] Referring Family Medicine 05/13/22 Counseling Program Leader Relationship Specialty Start Date End Date Thomas Calix MD [address] [place] [address] PCP - General Family Medicine 07/30/23 Antelmo Davey MD [address] [place] [address] 09/25/19 [place] [address] [place] [address] Consulting General Surgery 09/25/19 Shanna June CNP [address] [place] [address] Referring Family Medicine 10/19/19 Agustin Valentino PA [address] [address] [place] [address] Referring Family Medicine 05/13/22 Counseling Program Leader Relationship Specialty Start Date End Date Thomas Calix MD [address] [place] [address] PCP - General Family Medicine 07/30/23 Antelmo Davey MD [address] [place] [address] (Fax) 09/25/19 [place] [address] [place] [address] Consulting General Surgery 09/25/19 Shanna June, BETH [address] [place] [address] Referring Family Medicine 10/19/19 Agustin Valentino PA [address] [place] [address] Referring Family Medicine 05/13/22 Counseling Program Leader Relationship Specialty Start Date End Date Thomas Calix MD [address] [place] [address] PCP - General Family Medicine 07/30/23 Antelmo Davey MD [address] [place] [address] (Fax) 09/25/19 [place] [address] [place] [address] Consulting General Surgery 09/25/19 Shanna June, BETH [address] [place] [address] Referring Family Medicine 10/19/19 Agustin Valentino PA 112 [facility] [address] [place] [address] Referring Family Medicine 05/13/22 Team Status: Inactive Member Role Status Dates Thomas Calix MD Primary Care Provider Active Start: August 14, 2023 End: August 14, 2023 Shaan Sabillon PA-C Emergency Provider Active Start: August 14, 2023 End: August 14, 2023 Source Comments (unrecognize d section and content) In the event this informatio n is protected by the Federal Confidentiality of Alcohol and Drug Abuse Patient Records regulations: The Federal rules restrict any use of the information to criminally investigate or prosecute any alcohol or drug abuse patient.[facility] HospitalIn the event this information is protected by the Federal Confidentiality of Alcohol and Drug Abuse Patient Records regulations: The Federal rules restrict any use of the information to criminally investigate or prosecute any alcohol or drug abuse patient.[facility] HospitalIn the event this information is protected by the Federal Confidentiality of Alcohol and Drug Abuse Patient Records regulations: The Federal rules restrict any use of the information to criminally investigate or prosecute any alcohol or drug abuse patient.[facility] HospitalIn the event this information is protected by the Federal Confidentiality of Alcohol and Drug Abuse Patient Records regulations: The Federal rules restrict any use of the information to criminally investigate or prosecute any alcohol or drug abuse patient.[facility] HospitalIn the event this information is protected by the Federal Confidentiality of Alcohol and Drug Abuse Patient Records regulations: The Federal rules restrict any use of the information to criminally investigate or prosecute any alcohol or drug abuse patient.[facility] HospitalIn the event this information is protected by the Federal Confidentiality of Alcohol and Drug Abuse Patient Records regulations: The Federal rules restrict any use of the information to criminally investigate or prosecute any alcohol or drug abuse patient.[facility] HospitalIn the event this information is protected by the Federal Confidentiality of Alcohol and Drug Abuse Patient Records regulations: The Federal rules restrict any use of the information to criminally investigate or prosecute any alcohol or drug abuse patient.[facility] HospitalIn the event this information is protected by the Federal Confidentiality of Alcohol and Drug Abuse Patient Records regulations: The Federal rules restrict any use of the information to criminally investigate or prosecute any alcohol or drug abuse patient.[facility] HospitalIn the event this information is protected by the Federal Confidentiality of Alcohol and Drug Abuse Patient Records regulations: The Federal rules restrict any use of the information to criminally investigate or prosecute any alcohol or drug abuse patient.[facility] HospitalIn the event this information is protected by the Federal Confidentiality of Alcohol and Drug Abuse Patient Records regulations: The Federal rules restrict any use of the information to criminally investigate or prosecute any alcohol or drug abuse patient.[facility] HospitalIn the event this information is protected by the Federal Confidentiality of Alcohol and Drug Abuse Patient Records regulations: The Federal rules restrict any use of the information to criminally investigate or prosecute any alcohol or drug abuse patient.[facility] HospitalIn the event this information is protected by the Federal Confidentiality of Alcohol and Drug Abuse Patient Records regulations: The Federal rules restrict any use of the information to criminally investigate or prosecute any alcohol or drug abuse patient.[facility] HospitalIn the event this information is protected by the Federal Confidentiality of Alcohol and Drug Abuse Patient Records regulations: The Federal rules restrict any use of the information to criminally investigate or prosecute any alcohol or drug abuse patient.[facility] HospitalIn the event this information is protected by the Federal Confidentiality of Alcohol and Drug Abuse Patient Records regulations: The Federal rules restrict any use of the information to criminally investigate or prosecute any alcohol or drug abuse patient.[facility] HospitalIn the event this information is protected by the Federal Confidentiality of Alcohol and Drug Abuse Patient Records regulations: The Federal rules restrict any use of the information to criminally investigate or prosecute any alcohol or drug abuse patient.[facility] HospitalIn the event this information is protected by the Federal Confidentiality of Alcohol and Drug Abuse Patient Records regulations: The Federal rules restrict any use of the information to criminally investigate or prosecute any alcohol or drug abuse patient.[facility] HospitalIn the event this information is protected by the Federal Confidentiality of Alcohol and Drug Abuse Patient Records regulations: The Federal rules restrict any use of the information to criminally investigate or prosecute any alcohol or drug abuse patient.[facility] HospitalIn the event this information is protected by the Federal Confidentiality of Alcohol and Drug Abuse Patient Records regulations: The Federal rules restrict any use of the information to criminally investigate or prosecute any alcohol or drug abuse patient.[facility] HospitalIn the event this information is protected by the Federal Confidentiality of Alcohol and Drug Abuse Patient Records regulations: The Federal rules restrict any use of the information to criminally investigate or prosecute any alcohol or drug abuse patient.[facility] HospitalIn the event this information is protected by the Federal Confidentiality of Alcohol and Drug Abuse Patient Records regulations: The Federal rules restrict any use of the information to criminally investigate or prosecute any alcohol or drug abuse patient.[facility] HospitalIn the event this information is protected by the Federal Confidentiality of Alcohol and Drug Abuse Patient Records regulations: The Federal rules restrict any use of the information to criminally investigate or prosecute any alcohol or drug abuse patient.[facility] HospitalIn the event this information is protected by the Federal Confidentiality of Alcohol and Drug Abuse Patient Records regulations: The Federal rules restrict any use of the information to criminally investigate or prosecute any alcohol or drug abuse patient.[facility] HospitalIn the event this information is protected by the Federal Confidentiality of Alcohol and Drug Abuse Patient Records regulations: The Federal rules restrict any use of the information to criminally investigate or prosecute any alcohol or drug abuse patient.[facility] HospitalIn the event this information is protected by the Federal Confidentiality of Alcohol and Drug Abuse Patient Records regulations: The Federal rules restrict any use of the information to criminally investigate or prosecute any alcohol or drug abuse patient.[facility] HospitalIn the event this information is protected by the Federal Confidentiality of Alcohol and Drug Abuse Patient Records regulations: The Federal rules restrict any use of the information to criminally investigate or prosecute any alcohol or drug abuse patient.[facility] HospitalIn the event this information is protected by the Federal Confidentiality of Alcohol and Drug Abuse Patient Records regulations: The Federal rules restrict any use of the information to criminally investigate or prosecute any alcohol or drug abuse patient.[facility] HospitalIn the event this information is protected by the Federal Confidentiality of Alcohol and Drug Abuse Patient Records regulations: The Federal rules restrict any use of the information to criminally investigate or prosecute any alcohol or drug abuse patient.[facility] HospitalIn the event this information is protected by the Federal Confidentiality of Alcohol and Drug Abuse Patient Records regulations: The Federal rules restrict any use of the information to criminally investigate or prosecute any alcohol or drug abuse patient.[facility] HospitalIn the event this information is protected by the Federal Confidentiality of Alcohol and Drug Abuse Patient Records regulations: The Federal rules restrict any use of the information to criminally investigate or prosecute any alcohol or drug abuse patient.[facility] HospitalIn the event this information is protected by the Federal Confidentiality of Alcohol and Drug Abuse Patient Records regulations: The Federal rules restrict any use of the information to criminally investigate or prosecute any alcohol or drug abuse patient.[facility] HospitalIn the event this information is protected by the Federal Confidentiality of Alcohol and Drug Abuse Patient Records regulations: The Federal rules restrict any use of the information to criminally investigate or prosecute any alcohol or drug abuse patient.[facility] HospitalIn the event this information is protected by the Federal Confidentiality of Alcohol and Drug Abuse Patient Records regulations: The Federal rules restrict any use of the information to criminally investigate or prosecute any alcohol or drug abuse patient.[facility] HospitalIn the event this information is protected by the Federal Confidentiality of Alcohol and Drug Abuse Patient Records regulations: The Federal rules restrict any use of the information to criminally investigate or prosecute any alcohol or drug abuse patient.[facility] HospitalIn the event this information is protected by the Federal Confidentiality of Alcohol and Drug Abuse Patient Records regulations: The Federal rules restrict any use of the information to criminally investigate or prosecute any alcohol or drug abuse patient.[facility] HospitalIn the event this information is protected by the Federal Confidentiality of Alcohol and Drug Abuse Patient Records regulations: The Federal rules restrict any use of the information to criminally investigate or prosecute any alcohol or drug abuse patient.[facility] HospitalIn the event this information is protected by the Federal Confidentiality of Alcohol and Drug Abuse Patient Records regulations: The Federal rules restrict any use of the information to criminally investigate or prosecute any alcohol or drug abuse patient.[facility] HospitalIn the event this information is protected by the Federal Confidentiality of Alcohol and Drug Abuse Patient Records regulations: The Federal rules restrict any use of the information to criminally investigate or prosecute any alcohol or drug abuse patient.[facility] HospitalIn the event this information is protected by the Federal Confidentiality of Alcohol and Drug Abuse Patient Records regulations: The Federal rules restrict any use of the information to criminally investigate or prosecute any alcohol or drug abuse patient.[facility] HospitalIn the event this information is protected by the Federal Confidentiality of Alcohol and Drug Abuse Patient Records regulations: The Federal rules restrict any use of the information to criminally investigate or prosecute any alcohol or drug abuse patient.[facility] HospitalIn the event this information is protected by the Federal Confidentiality of Alcohol and Drug Abuse Patient Records regulations: The Federal rules restrict any use of the information to criminally investigate or prosecute any alcohol or drug abuse patient.[facility] HospitalIn the event this information is protected by the Federal Confidentiality of Alcohol and Drug Abuse Patient Records regulations: The Federal rules restrict any use of the information to criminally investigate or prosecute any alcohol or drug abuse patient.[facility] HospitalIn the event this information is protected by the Federal Confidentiality of Alcohol and Drug Abuse Patient Records regulations: The Federal rules restrict any use of the information to criminally investigate or prosecute any alcohol or drug abuse patient.[facility]In the event this information is protected by the Federal Confidentiality of Alcohol and Drug Abuse Patient Records regulations: The Federal rules restrict any use of the information to criminally investigate or prosecute any alcohol or drug abuse patient.[facility] HospitalIn the event this information is protected by the Federal Confidentiality of Alcohol and Drug Abuse Patient Records regulations: The Federal rules restrict any use of the information to criminally investigate or prosecute any alcohol or drug abuse patient.[facility] HospitalIn the event this information is protected by the Federal Confidentiality of Alcohol and Drug Abuse Patient Records regulations: The Federal rules restrict any use of the information to criminally investigate or prosecute any alcohol or drug abuse patient.[facility] HospitalIn the event this information is protected by the Federal Confidentiality of Alcohol and Drug Abuse Patient Records regulations: The Federal rules restrict any use of the information to criminally investigate or prosecute any alcohol or drug abuse patient.[facility] HospitalIn the event this information is protected by the Federal Confidentiality of Alcohol and Drug Abuse Patient Records regulations: The Federal rules restrict any use of the information to criminally investigate or prosecute any alcohol or drug abuse patient.[facility] HospitalIn the event this information is protected by the Federal Confidentiality of Alcohol and Drug Abuse Patient Records regulations: The Federal rules restrict any use of the information to criminally investigate or prosecute any alcohol or drug abuse patient.[facility] HospitalIn the event this information is protected by the Federal Confidentiality of Alcohol and Drug Abuse Patient Records regulations: The Federal rules restrict any use of the information to criminally investigate or prosecute any alcohol or drug abuse patient.[facility] HospitalIn the event this information is protected by the Federal Confidentiality of Alcohol and Drug Abuse Patient Records regulations: The Federal rules restrict any use of the information to criminally investigate or prosecute any alcohol or drug abuse patient.[facility] HospitalIn the event this information is protected by the Federal Confidentiality of Alcohol and Drug Abuse Patient Records regulations: The Federal rules restrict any use of the information to criminally investigate or prosecute any alcohol or drug abuse patient.[facility] HospitalIn the event this information is protected by the Federal Confidentiality of Alcohol and Drug Abuse Patient Records regulations: The Federal rules restrict any use of the information to criminally investigate or prosecute any alcohol or drug abuse patient.[facility] HospitalIn the event this information is protected by the Federal Confidentiality of Alcohol and Drug Abuse Patient Records regulations: The Federal rules restrict any use of the information to criminally investigate or prosecute any alcohol or drug abuse patient.[facility] HospitalIn the event this information is protected by the Federal Confidentiality of Alcohol and Drug Abuse Patient Records regulations: The Federal rules restrict any use of the information to criminally investigate or prosecute any alcohol or drug abuse patient.[facility] HospitalIn the event this information is protected by the Federal Confidentiality of Alcohol and Drug Abuse Patient Records regulations: The Federal rules restrict any use of the information to criminally investigate or prosecute any alcohol or drug abuse patient.[facility] HospitalIn the event this information is protected by the Federal Confidentiality of Alcohol and Drug Abuse Patient Records regulations: The Federal rules restrict any use of the information to criminally investigate or prosecute any alcohol or drug abuse patient.[facility] HospitalIn the event this information is protected by the Federal Confidentiality of Alcohol and Drug Abuse Patient Records regulations: The Federal rules restrict any use of the information to criminally investigate or prosecute any alcohol or drug abuse patient.[facility] HospitalIn the event this information is protected by the Federal Confidentiality of Alcohol and Drug Abuse Patient Records regulations: The Federal rules restrict any use of the information to criminally investigate or prosecute any alcohol or drug abuse patient.[facility] HospitalIn the event this information is protected by the Federal Confidentiality of Alcohol and Drug Abuse Patient Records regulations: The Federal rules restrict any use of the information to criminally investigate or prosecute any alcohol or drug abuse patient.[facility] HospitalIn the event this information is protected by the Federal Confidentiality of Alcohol and Drug Abuse Patient Records regulations: The Federal rules restrict any use of the information to criminally investigate or prosecute any alcohol or drug abuse patient.[facility] HospitalIn the event this information is protected by the Federal Confidentiality of Alcohol and Drug Abuse Patient Records regulations: The Federal rules restrict any use of the information to criminally investigate or prosecute any alcohol or drug abuse patient.[facility] HospitalIn the event this information is protected by the Federal Confidentiality of Alcohol and Drug Abuse Patient Records regulations: The Federal rules restrict any use of the information to criminally investigate or prosecute any alcohol or drug abuse patient.[facility] HospitalIn the event this information is protected by the Federal Confidentiality of Alcohol and Drug Abuse Patient Records regulations: The Federal rules restrict any use of the information to criminally investigate or prosecute any alcohol or drug abuse patient.[facility] HospitalIn the event this information is protected by the Federal Confidentiality of Alcohol and Drug Abuse Patient Records regulations: The Federal rules restrict any use of the information to criminally investigate or prosecute any alcohol or drug abuse patient.[facility] HospitalIn the event this information is protected by the Federal Confidentiality of Alcohol and Drug Abuse Patient Records regulations: The Federal rules restrict any use of the information to criminally investigate or prosecute any alcohol or drug abuse patient.[facility] HospitalIn the event this information is protected by the Federal Confidentiality of Alcohol and Drug Abuse Patient Records regulations: The Federal rules restrict any use of the information to criminally investigate or prosecute any alcohol or drug abuse patient.[facility] HospitalIn the event this information is protected by the Federal Confidentiality of Alcohol and Drug Abuse Patient Records regulations: The Federal rules restrict any use of the information to criminally investigate or prosecute any alcohol or drug abuse patient.[facility] HospitalIn the event this information is protected by the Federal Confidentiality of Alcohol and Drug Abuse Patient Records regulations: The Federal rules restrict any use of the information to criminally investigate or prosecute any alcohol or drug abuse patient.[facility] HospitalIn the event this information is protected by the Federal Confidentiality of Alcohol and Drug Abuse Patient Records regulations: The Federal rules restrict any use of the information to criminally investigate or prosecute any alcohol or drug abuse patient.[facility] HospitalIn the event this information is protected by the Federal Confidentiality of Alcohol and Drug Abuse Patient Records regulations: The Federal rules restrict any use of the information to criminally investigate or prosecute any alcohol or drug abuse patient.[facility] HospitalIn the event this information is protected by the Federal Confidentiality of Alcohol and Drug Abuse Patient Records regulations: The Federal rules restrict any use of the information to criminally investigate or prosecute any alcohol or drug abuse patient.[facility] HospitalIn the event this information is protected by the Federal Confidentiality of Alcohol and Drug Abuse Patient Records regulations: The Federal rules restrict any use of the information to criminally investigate or prosecute any alcohol or drug abuse patient.[facility] HospitalIn the event this information is protected by the Federal Confidentiality of Alcohol and Drug Abuse Patient Records regulations: The Federal rules restrict any use of the information to criminally investigate or prosecute any alcohol or drug abuse patient.[facility] HospitalIn the event this information is protected by the Federal Confidentiality of Alcohol and Drug Abuse Patient Records regulations: The Federal rules restrict any use of the information to criminally investigate or prosecute any alcohol or drug abuse patient.[facility] HospitalIn the event this information is protected by the Federal Confidentiality of Alcohol and Drug Abuse Patient Records regulations: The Federal rules restrict any use of the information to criminally investigate or prosecute any alcohol or drug abuse patient.[facility] HospitalIn the event this information is protected by the Federal Confidentiality of Alcohol and Drug Abuse Patient Records regulations: The Federal rules restrict any use of the information to criminally investigate or prosecute any alcohol or drug abuse patient.[facility] HospitalIn the event this information is protected by the Federal Confidentiality of Alcohol and Drug Abuse Patient Records regulations: The Federal rules restrict any use of the information to criminally investigate or prosecute any alcohol or drug abuse patient.[facility] HospitalIn the event this information is protected by the Federal Confidentiality of Alcohol and Drug Abuse Patient Records regulations: The Federal rules restrict any use of the information to criminally investigate or prosecute any alcohol or drug abuse patient.[facility] HospitalIn the event this information is protected by the Federal Confidentiality of Alcohol and Drug Abuse Patient Records regulations: The Federal rules restrict any use of the information to criminally investigate or prosecute any alcohol or drug abuse patient.[facility] HospitalIn the event this information is protected by the Federal Confidentiality of Alcohol and Drug Abuse Patient Records regulations: The Federal rules restrict any use of the information to criminally investigate or prosecute any alcohol or drug abuse patient.[facility] HospitalIn the event this information is protected by the Federal Confidentiality of Alcohol and Drug Abuse Patient Records regulations: The Federal rules restrict any use of the information to criminally investigate or prosecute any alcohol or drug abuse patient.[facility] HospitalIn the event this information is protected by the Federal Confidentiality of Alcohol and Drug Abuse Patient Records regulations: The Federal rules restrict any use of the information to criminally investigate or prosecute any alcohol or drug abuse patient.[facility] HospitalIn the event this information is protected by the Federal Confidentiality of Alcohol and Drug Abuse Patient Records regulations: The Federal rules restrict any use of the information to criminally investigate or prosecute any alcohol or drug abuse patient.[facility] HospitalIn the event this information is protected by the Federal Confidentiality of Alcohol and Drug Abuse Patient Records regulations: The Federal rules restrict any use of the information to criminally investigate or prosecute any alcohol or drug abuse patient.[facility] HospitalIn the event this information is protected by the Federal Confidentiality of Alcohol and Drug Abuse Patient Records regulations: The Federal rules restrict any use of the information to criminally investigate or prosecute any alcohol or drug abuse patient.[facility] HospitalIn the event this information is protected by the Federal Confidentiality of Alcohol and Drug Abuse Patient Records regulations: The Federal rules restrict any use of the information to criminally investigate or prosecute any alcohol or drug abuse patient.[facility] HospitalIn the event this information is protected by the Federal Confidentiality of Alcohol and Drug Abuse Patient Records regulations: The Federal rules restrict any use of the information to criminally investigate or prosecute any alcohol or drug abuse patient.[facility] HospitalIn the event this information is protected by the Federal Confidentiality of Alcohol and Drug Abuse Patient Records regulations: The Federal rules restrict any use of the information to criminally investigate or prosecute any alcohol or drug abuse patient.[facility] HospitalIn the event this information is protected by the Federal Confidentiality of Alcohol and Drug Abuse Patient Records regulations: The Federal rules restrict any use of the information to criminally investigate or prosecute any alcohol or drug abuse patient.[facility] HospitalIn the event this information is protected by the Federal Confidentiality of Alcohol and Drug Abuse Patient Records regulations: The Federal rules restrict any use of the information to criminally investigate or prosecute any alcohol or drug abuse patient.[facility] HospitalIn the event this information is protected by the Federal Confidentiality of Alcohol and Drug Abuse Patient Records regulations: The Federal rules restrict any use of the information to criminally investigate or prosecute any alcohol or drug abuse patient.[facility] HospitalIn the event this information is protected by the Federal Confidentiality of Alcohol and Drug Abuse Patient Records regulations: The Federal rules restrict any use of the information to criminally investigate or prosecute any alcohol or drug abuse patient.[facility] HospitalIn the event this information is protected by the Federal Confidentiality of Alcohol and Drug Abuse Patient Records regulations: The Federal rules restrict any use of the information to criminally investigate or prosecute any alcohol or drug abuse patient.[facility] HospitalIn the event this information is protected by the Federal Confidentiality of Alcohol and Drug Abuse Patient Records regulations: The Federal rules restrict any use of the information to criminally investigate or prosecute any alcohol or drug abuse patient.[facility] HospitalIn the event this information is protected by the Federal Confidentiality of Alcohol and Drug Abuse Patient Records regulations: The Federal rules restrict any use of the information to criminally investigate or prosecute any alcohol or drug abuse patient.[facility] HospitalIn the event this information is protected by the Federal Confidentiality of Alcohol and Drug Abuse Patient Records regulations: The Federal rules restrict any use of the information to criminally investigate or prosecute any alcohol or drug abuse patient.[facility] HospitalIn the event this information is protected by the Federal Confidentiality of Alcohol and Drug Abuse Patient Records regulations: The Federal rules restrict any use of the information to criminally investigate or prosecute any alcohol or drug abuse patient.[facility] HospitalIn the event this information is protected by the Federal Confidentiality of Alcohol and Drug Abuse Patient Records regulations: The Federal rules restrict any use of the information to criminally investigate or prosecute any alcohol or drug abuse patient.[facility] HospitalIn the event this information is protected by the Federal Confidentiality of Alcohol and Drug Abuse Patient Records regulations: The Federal rules restrict any use of the information to criminally investigate or prosecute any alcohol or drug abuse patient.[facility] HospitalIn the event this information is protected by the Federal Confidentiality of Alcohol and Drug Abuse Patient Records regulations: The Federal rules restrict any use of the information to criminally investigate or prosecute any alcohol or drug abuse patient.[facility] HospitalIn the event this information is protected by the Federal Confidentiality of Alcohol and Drug Abuse Patient Records regulations: The Federal rules restrict any use of the information to criminally investigate or prosecute any alcohol or drug abuse patient.[facility] HospitalIn the event this information is protected by the Federal Confidentiality of Alcohol and Drug Abuse Patient Records regulations: The Federal rules restrict any use of the information to criminally investigate or prosecute any alcohol or drug abuse patient.[facility] HospitalIn the event this information is protected by the Federal Confidentiality of Alcohol and Drug Abuse Patient Records regulations: The Federal rules restrict any use of the information to criminally investigate or prosecute any alcohol or drug abuse patient.[facility] HospitalIn the event this information is protected by the Federal Confidentiality of Alcohol and Drug Abuse Patient Records regulations: The Federal rules restrict any use of the information to criminally investigate or prosecute any alcohol or drug abuse patient.[facility] HospitalIn the event this information is protected by the Federal Confidentiality of Alcohol and Drug Abuse Patient Records regulations: The Federal rules restrict any use of the information to criminally investigate or prosecute any alcohol or drug abuse patient.[facility] HospitalIn the event this information is protected by the Federal Confidentiality of Alcohol and Drug Abuse Patient Records regulations: The Federal rules restrict any use of the information to criminally investigate or prosecute any alcohol or drug abuse patient.[facility] HospitalIn the event this information is protected by the Federal Confidentiality of Alcohol and Drug Abuse Patient Records regulations: The Federal rules restrict any use of the information to criminally investigate or prosecute any alcohol or drug abuse patient.[facility] HospitalIn the event this information is protected by the Federal Confidentiality of Alcohol and Drug Abuse Patient Records regulations: The Federal rules restrict any use of the information to criminally investigate or prosecute any alcohol or drug abuse patient.[facility] HospitalIn the event this information is protected by the Federal Confidentiality of Alcohol and Drug Abuse Patient Records regulations: The Federal rules restrict any use of the information to criminally investigate or prosecute any alcohol or drug abuse patient.[facility] HospitalIn the event this information is protected by the Federal Confidentiality of Alcohol and Drug Abuse Patient Records regulations: The Federal rules restrict any use of the information to criminally investigate or prosecute any alcohol or drug abuse patient.[facility] HospitalIn the event this information is protected by the Federal Confidentiality of Alcohol and Drug Abuse Patient Records regulations: The Federal rules restrict any use of the information to criminally investigate or prosecute any alcohol or drug abuse patient.[facility] HospitalIn the event this information is protected by the Federal Confidentiality of Alcohol and Drug Abuse Patient Records regulations: The Federal rules restrict any use of the information to criminally investigate or prosecute any alcohol or drug abuse patient.[facility] HospitalIn the event this information is protected by the Federal Confidentiality of Alcohol and Drug Abuse Patient Records regulations: The Federal rules restrict any use of the information to criminally investigate or prosecute any alcohol or drug abuse patient.[facility] HospitalIn the event this information is protected by the Federal Confidentiality of Alcohol and Drug Abuse Patient Records regulations: The Federal rules restrict any use of the information to criminally investigate or prosecute any alcohol or drug abuse patient.[facility] HospitalIn the event this information is protected by the Federal Confidentiality of Alcohol and Drug Abuse Patient Records regulations: The Federal rules restrict any use of the information to criminally investigate or prosecute any alcohol or drug abuse patient.[facility] HospitalIn the event this information is protected by the Federal Confidentiality of Alcohol and Drug Abuse Patient Records regulations: The Federal rules restrict any use of the information to criminally investigate or prosecute any alcohol or drug abuse patient.[facility] HospitalIn the event this information is protected by the Federal Confidentiality of Alcohol and Drug Abuse Patient Records regulations: The Federal rules restrict any use of the information to criminally investigate or prosecute any alcohol or drug abuse patient.[facility] HospitalIn the event this information is protected by the Federal Confidentiality of Alcohol and Drug Abuse Patient Records regulations: The Federal rules restrict any use of the information to criminally investigate or prosecute any alcohol or drug abuse patient.[facility] HospitalIn the event this information is protected by the Federal Confidentiality of Alcohol and Drug Abuse Patient Records regulations: The Federal rules restrict any use of the information to criminally investigate or prosecute any alcohol or drug abuse patient.[facility] HospitalIn the event this information is protected by the Federal Confidentiality of Alcohol and Drug Abuse Patient Records regulations: The Federal rules restrict any use of the information to criminally investigate or prosecute any alcohol or drug abuse patient.[facility] Ordered Prescriptions (unrec ognized section and [...] BE BASED ON THE PRIMARY CLINICAL RECORDS. [facility] [employer] [facility]. provides no warranty or guarantee of the accuracy or completeness of information in this document.
--- NOTE | 2023-08-15 13:48 | ED_ITS ---
HPI - Nausea/Vomiting/Diarrhea General Chief complaint: Nausea/Vomiting/Diarrhea Stated complaint: NAUSEA AND PAIN Time Seen by Provider: 08/15/23 13:42 Source: patient Mode of arrival: walk-in Limitations: no limitations History of Present Illness HPI Narrative: 33-year-old female presents to the emergency department for nausea and vomiting and abdominal pain. She has ongoing issues with her abdomen and has had numerous surgeries. She currently has a J-tube. She states she is in the transplant rehabilitation program at the [facility]. She could not explain what this is and does not know what she is going to have transplanted. No hematemesis fever or injury. She has had this for few days. Related Data Home Medications ?Medication ?Instructions ?Recorded ?Confirmed hydroxyzine HCl 25 mg tablet 25 mg PO BID PRN anxiety 09/17/22 08/15/23 liothyronine 5 mcg tablet 5 mcg PO QDAY 09/17/22 08/15/23 topiramate 100 mg tablet 100 mg PO BID 09/17/22 08/15/23 buspirone 10 mg tablet 10 mg PO TID 06/14/23 08/15/23 linaclotide 290 mcg capsule 290 mcg PO DAILY 06/14/23 08/15/23 (Linzess) methocarbamol 750 mg tablet 750 mg PO TID 06/14/23 08/15/23 metoclopramide HCl 10 mg tablet 10 mg PO AC 06/14/23 08/15/23 albuterol sulfate 90 mcg/actuation 2 puff inhalation Q6H PRN 06/15/23 08/15/23 aerosol inhaler shortness of breath or wheezing escitalopram oxalate 20 mg tablet 20 mg PO DAILY 06/15/23 08/15/23 levothyroxine 75 mcg tablet 75 mcg PO .ACB 06/15/23 08/15/23 mirtazapine 30 mg tablet 30 mg PO .HS 06/15/23 08/15/23 pantoprazole 40 mg tablet,delayed 40 mg PO DAILY 06/15/23 08/15/23 release acetaminophen 325 mg tablet (Pain 650 mg PO Q4H PRN pain 06/24/23 08/15/23 Relief (acetaminophen)) Previous Rx's ?Medication ?Instructions ?Recorded Nutrin 45 ml feeding tube Q1H #3,000 mL 06/16/23 prochlorperazine maleate 10 mg 10 mg PO Q6H PRN nausea and 06/16/23 tablet (Compazine) vomiting #60 tabs tramadol 50 mg tablet 50 mg PO Q6H PRN pain #28 tabs 06/16/23 ondansetron 4 mg disintegrating 4 mg PO Q6H PRN nausea and 07/08/23 tablet vomiting #20 tabs Allergies Allergy/AdvReac Type Severity Reaction Status Date / Time adhesive Allergy Rash Verified 08/15/23 13:11 codeine Allergy Vomiting Verified 08/15/23 13:11 NSAIDS (Non-Steroidal Allergy intolerance Verified 08/15/23 13:11 Anti-Inflamma Review of Systems ROS Narrative A ten point review of systems is negative except as noted above. [facility] Medical History (Updated 08/15/23 @ 15:32 by Reji Damon MD) Abdominal pain ?R10.9 - Unspecified abdominal pain (ICD-10) Acute abdomen ?R10.0 - Acute abdomen (ICD-10) Intractable nausea and vomiting ?R11.2 - Nausea with vomiting, unspecified (ICD-10) Intractable abdominal pain ?R10.9 - Unspecified abdominal pain (ICD-10) Depression ?F32.A - Depression, unspecified (ICD-10) Asthma ?J45.909 - Unspecified asthma, uncomplicated (ICD-10) Dyspareunia Pelvic pain ?R10.2 - Pelvic and perineal pain (ICD-10) Ovarian cyst ?N83.209 - Unspecified ovarian cyst, unspecified side (ICD-10) PONV (postoperative nausea and vomiting) ?R11.2 - Nausea with vomiting, unspecified (ICD-10) ?Z98.890 - Other specified postprocedural states (ICD-10) PCOS (polycystic ovarian syndrome) ?E28.2 - Polycystic ovarian syndrome (ICD-10) Hypothyroidism (acquired) ?E03.9 - Hypothyroidism, unspecified (ICD-10) Anxiety ?F41.9 - Anxiety disorder, unspecified (ICD-10) GERD (gastroesophageal reflux disease) ?K21.9 - Gastro-esophageal reflux disease without esophagitis (ICD-10) Sleep apnea ?G47.30 - Sleep apnea, unspecified (ICD-10) Anemia ?D64.9 - Anemia, unspecified (ICD-10) Fibromyalgia ?M79.7 - Fibromyalgia (ICD-10) Syncope (07/07/13) ?R55 - Syncope and collapse (ICD-10) Shingles ?B02.9 - Zoster without complications (ICD-10) Headache ?R51.9 - Headache, unspecified (ICD-10) Migraine ?G43.909 - Migraine, unspecified, not intractable, without status migrainosus (ICD-10) Mechanical ileus (01/31/20) ?K56.609 - Unspecified intestinal obstruction, unspecified as to partial ve rsus complete obstruction (ICD-10) COVID-19 (~02/2020) ?U07.1 - COVID-19 (ICD-10) Kidney stones ?N20.0 - Calculus of kidney (ICD-10) Surgical History (Updated 06/14/23 @ 16:55 by Marsha Du) S/P percutaneous endoscopic gastrostomy (PEG) tube placement ?Z93.1 - Gastrostomy status (ICD-10) 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 - Celiac artery compression syndrome (ICD-10) H/O shoulder surgery (2022) ?Z98.890 - Other specified postprocedural states (ICD-10) History of hip surgery ?Z98.890 - Other specified postprocedural states (ICD-10) S/P right knee arthroscopy ?Z98.890 - Other specified postprocedural states (ICD-10) S/P left knee arthroscopy ?Z98.890 - Other specified postprocedural states (ICD-10) Hx of tonsillectomy ?Z90.89 - Acquired absence of other organs (ICD-10) History of thoracic surgery (~2021) ?Z98.890 - Other specified postprocedural states (ICD-10) History of esophagogastroduodenoscopy (EGD) (10/04/13) ?Z98.890 - Other specified postprocedural states (ICD-10) History of cholecystectomy (10/06/13) ?Z90.49 - Acquired absence of other specified parts of digestive tract (ICD- 10) Delivery by section (~2016) Delivery by section (01/17/18) H/O colonoscopy (~2018) ?Z98.890 - Other specified postprocedural states (ICD-10) S/P right knee arthroscopy (07/21/18) ?Z98.890 - Other specified postprocedural states (ICD-10) Delivery by section (06/19/19) History of appendectomy (09/25/19) ?Z90.49 - Acquired absence of other specified parts of digestive tract (ICD- 10) H/O laparoscopy (11/10/19) ?Z98.890 - Other specified postprocedural states (ICD-10) History of liver biopsy (~04/2020) ?Z98.890 - Other specified postprocedural states (ICD-10) H/O laparoscopy (07/18/20) ?Z98.890 - Other specified postprocedural states (ICD-10) H/O arthroscopy of right knee (08/07/20) ?Z98.890 - Other specified postprocedural states (ICD-10) S/P laparoscopic sleeve gastrectomy (09/03/20) ?Z98.84 - Bariatric surgery status (ICD-10) H/O: hysterectomy (11/12/20) ?Z90.710 - Acquired absence of both cervix and uterus (ICD-10) History of hernia repair (03/20/21) ?Z98.890 - Other specified postprocedural states (ICD-10) ?Z87.19 - Personal history of other diseases of the digestive system (ICD-10) Family History (Updated 06/14/23 @ 16:56 by Marsha Du) Other Family history of cancer Family history of diabetes mellitus Family history of hypertension Family history of myocardial infarction PONV (postoperative nausea and vomiting) Social History (Updated 06/14/23 @ 16:57 by Marsha Du) Within the past year, how often did you have a drink containing alcohol: never Score interpretation: A score less than 3 is consistent with normal alcohol consumption. Smoking status: Never smoker Non-prescribed substance use: denies use Highest level of school completed/degree received: Master's degree Are you now , , , , never or living with a partner: In a typical week, how many times do you talk on the telephone with family, friends, or neighbors: 3 or more times per week How often do you get together with friends or relatives: twice per week How often do you attend protestant or spiritism services: 4 or more times per year Do you belong to any clubs or organizations such as protestant groups unions, fraternal or athletic groups, or school groups: no Total score: 3 Score interpretation: A score of greater than or equal to 2 indicates the lowest level of social isolation. Little interest or pleasure in doing things: not at all Feeling down, depressed, or hopeless: several days Feel stressed/tense/nervous/anxious/difficulty sleeping: to some extent Do you think of yourself as: straight/heterosexual Gender Identity: female Exam Narrative Exam Narrative: Nurses note and vital signs reviewed and patient is not hypoxic. General: The patient appears in no apparent distress. Patient is resting comfortably on cart. Skin: Warm, dry, no pallor noted. There is no rash noted. Head: Normocephalic, atraumatic Eye: Normal conjunctiva, no drainage Ears, Nose, Mouth, and Throat: oral mucosa is moist. Nares patent. Cardiovascular: Regular Rate and Rhythm Respiratory: Patient is in no distress, no accessory muscle use, lungs are clear to auscultation, no wheezing, rales or rhonchi Back: non-tender GI: No distention. J-tube in place. She seems to have mild diffuse tenderness. No rebound or guarding. Musculoskeletal: The patient has no evidence of calf tenderness, no pitting edema, symmetrical pulses noted bilaterally Neurological: A&O, normal speech Psychiatric: Cooperative Constitutional Vital Signs, click to edit/add: Last Vital Signs Temp 98.1 F 08/15/23 13:11 Pulse 96 H 08/15/23 13:11 Resp 14 08/15/23 13:11 BP 120/87 08/15/23 13:11 Pulse Ox 100 08/15/23 13:11 O2 Del Method Room Air 08/15/23 13:11 Course Vital Signs Vital signs: Vital Signs Temperature 98.1 F 08/15/23 13:11 Pulse Rate 96 H 08/15/23 13:11 Respiratory Rate 14 08/15/23 13:11 Blood Pressure 120/87 08/15/23 13:11 Pulse Oximetry 100 08/15/23 13:11 Oxygen Delivery Method Room Air 08/15/23 13:11 Temperature 98.1 F 08/15/23 13:11 Pulse Rate 96 H 08/15/23 13:11 Respiratory Rate 14 08/15/23 13:11 Blood Pressure 120/87 08/15/23 13:11 Pulse Oximetry 100 08/15/23 13:11 Oxygen Delivery Method Room Air 08/15/23 13:11 MDM - Nausea/Vomiting/Diarrhea MDM Narrative Medical decision making narrative: Blood work is nonspecific. She was given IV fluids and Zofran and morphine. She states she is not feeling much better and would prefer to be admitted overnight for observation. This is being accomplished. I do not feel that a CAT scan is indicated. I have no clinical suspicion of a bowel obstruction. Differential Diagnosis Differential diagnosis: Likely food poisoning, gastroenteritis and dehydration Lab Data Attestation: I reviewed the patient's lab results. Labs: Lab Results 08/15/23 08/15/23 Range/Units 13:54 13:58 WBC 4.3 (4.0-11.0) 10^3/uL RBC 3.69 L (4.20-5.40) 10^6/uL Hgb 10.7 L (12.0-16.0) g/dL Hct 32.4 L (36.0-48.0) % MCV 87.8 (81.0-99.0) fL MCH 29.0 (26.7-34.0) pg MCHC 33.0 (29.9-35.2) g/dL RDW 12.6 (11.0-15.0) % Plt Count 238 (150-450) 10^3/uL MPV 10.7 (9.5-13.5) fL Neut % (Auto) 47.0 (43.0-75.0) % Lymph % (Auto) 43.8 (20.5-60.0) % [place] % (Auto) 6.4 (1.7-12.0) % Eos % (Auto) 1.9 (0.9-7.0) % Baso % (Auto) 0.7 (0.2-2.0) % Neut # (Auto) 2.0 (1.4-6.5) 10^3/uL Lymph # (Auto) 1.9 (1.2-3.8) 10^3/uL [place] # (Auto) 0.3 (0.3-0.8) 10^3/uL Eos # (Auto) 0.1 (0.0-0.7) 10^3/uL Baso # (Auto) 0.0 (0.0-0.1) 10^3/uL Abs Immat Gran (auto) 0.01 (0.00-0.03) 10^3/uL Imm/Tot Granulo (auto) 0.2 (0.0-0.5) % Sodium 142 (136-145) mmol/L Potassium 3.5 (3.5-5.1) mmol/L Chloride 106 (98-107) mmol/L Carbon Dioxide 25.4 (21.0-32.0) mmol/L Anion Gap 14.1 BUN 9.0 (7.0-18.0) mg/dL Creatinine 0.85 (0.55-1.02) mg/dL Est GFR ( Amer) >60 (>=60) Est GFR (Non-Af Amer) >60 (>=60) BUN/Creatinine Ratio 10.6 Glucose 92 (74-106) mg/dL Calcium 8.0 L (8.5-10.1) mg/dL Total Bilirubin 0.4 (0.2-1.0) mg/dL Direct Bilirubin 0.1 (0.0-0.2) mg/dL AST 35 (15-37) U/L ALT 31 (14-59) U/L Alkaline Phosphatase 67 (46-116) U/L Total Protein 6.6 (6.4-8.2) g/dL Albumin 3.5 (3.4-5.0) g/dL Globulin 3.1 g/dL Albumin/Globulin Ratio 1.1 Amylase 51 (25-115) U/L Lipase 74.0 (16.0-77.0) U/L Serum HCG, Qual Negative (NEGATIVE) Urine Color Lt. yellow (YELLOW) Urine Clarity Clear (CLEAR) Urine pH 7.0 (5.0-9.0) Ur Specific [place] 1.015 (1.005-1.025) Urine Protein Negative (NEG/TRACE) mg/dL Urine Glucose (UA) Negative (NEGATIVE) mg/dL Urine Ketones Negative (NEGATIVE) mg/dL Urine Occult Blood Negative (NEGATIVE) Urine Nitrite Negative (NEGATIVE) Urine Bilirubin Negative (NEGATIVE) Urine Urobilinogen 0.2 (0.2-1.0) EU/dL Ur Leukocyte Esterase Negative (NEGATIVE) Urine RBC 0-2 (0-2) #/HPF Urine WBC None seen (NONE SEEN) #/HPF Ur Squamous Epith Cells Few A (NONE/RARE) #/LPF Urine Crystals None seen (None Seen) #/HPF Urine Bacteria Trace A (NONE SEEN) #/HPF Urine Casts None seen (NONE SEEN) #/LPF Urine Mucus None seen (NONE SEEN) Ur Culture Indicated? No Discharge Plan Discharge Stand Alone Forms: Portal Instructions Chief Complaint: Nausea/Vomiting/Diarrhea Clinical Impression: Nausea and vomiting Patient Disposition: Admitted as Observation Time of Disposition Decision: 15:32 Condition: Good Mode of Transportation: Private Vehicle Prescriptions / Home Meds: No Action hydroxyzine HCl 25 mg tablet 25 mg PO BID PRN (Reason: anxiety) liothyronine 5 mcg tablet 5 mcg PO QDAY topiramate 100 mg tablet 100 mg PO BID buspirone 10 mg tablet 10 mg PO TID methocarbamol 750 mg tablet 750 mg PO TID metoclopramide HCl 10 mg tablet 10 mg PO AC Linzess 290 mcg capsule 290 mcg PO DAILY albuterol sulfate 90 mcg/actuation HFA aerosol inhaler 2 puff INHALATION Q6H PRN (Reason: shortness of breath or wheezing) levothyroxine 75 mcg tablet 75 mcg PO .ACB escitalopram oxalate 20 mg tablet 20 mg PO DAILY mirtazapine 30 mg tablet 30 mg PO .HS pantoprazole 40 mg tablet,delayed release (DR/EC) 40 mg PO DAILY Nutrin 45 ml feeding tube Q1H Qty: 3000 11RF prochlorperazine maleate [Compazine] 10 mg tablet 10 mg PO Q6H PRN (Reason: nausea and vomiting) Qty: 60 3RF tramadol 50 mg tablet 50 mg PO Q6H PRN (Reason: pain) Qty: 28 0RF acetaminophen [Pain Relief (acetaminophen)] 325 mg tablet 650 mg PO Q4H PRN (Reason: pain) ondansetron 4 mg tablet,disintegrating 4 mg PO Q6H PRN (Reason: nausea and vomiting) Qty: 20 0RF Print Language: [place] Referrals: Thomas Alas MD [Primary Care Provider] - 1 week
[2023-08-15] MEDS: 0.9 % SODIUM CHLORIDE 1,000 ML 1000 ML IV (14:05)
[2023-08-15] MEDS: ONDANSETRON PF 4 MG/2 ML VIAL IV ×2 (14:05→15:07)
[2023-08-15 14:07] LABS: Basophils Percent Auto 0.7 % (0.2-2.0); Eosinophils Absolute Auto 0.1 10^3/uL (0.0-0.7); Eosinophils Percent Auto 1.9 % (0.9-7.0); Hematocrit 32.4 % (36.0-48.0); Hemoglobin 10.7 g/dL (12.0-16.0); Immature Granulocytes Abs Auto 0.01 10^3/uL (0.00-0.03); Immature Granulocytes Pct Auto 0.2 % (0.0-0.5); Lymphocytes Absolute Auto 1.9 10^3/uL (1.2-3.8); Lymphocytes Percent Auto 43.8 % (20.5-60.0); Mean Corpuscular Volume 87.8 fL (81.0-99.0); Mean Platelet Volume 10.7 fL (9.5-13.5); Monocytes Absolute Auto 0.3 10^3/uL (0.3-0.8); Monocytes Percent Auto 6.4 % (1.7-12.0); Platelet Count 238 10^3/uL (150-450); Red Blood Count 3.69 10^6/uL (4.20-5.40); Red Cell Distribution Width 12.6 % (11.0-15.0); White Blood Count 4.3 10^3/uL (4.0-11.0)
[2023-08-15 14:07] LABS: Bilirubin Urine NEGATIVE (NEGATIVE); Blood Urine NEGATIVE (NEGATIVE); Clarity Urine CLEAR (CLEAR); Color Urine LT. YELLOW (YELLOW); Glucose Urine UA NEGATIVE (NEGATIVE); Ketones Urine NEGATIVE (NEGATIVE); Leukocyte Esterase Urine NEGATIVE (NEGATIVE); Nitrite Urine NEGATIVE (NEGATIVE); Protein Urine NEGATIVE (NEG/TRACE); Specific Gravity Urine 1.015 (1.005-1.025); Urobilinogen Urine 0.2 EU/dL (0.2-1.0)
[2023-08-15 14:13] LABS: Bacteria Urine TRACE #/HPF (NONE SEEN); Cast Seen? NONE SEEN #/LPF (NONE SEEN); Crystals Seen? None Seen #/HPF (None Seen); Mucus Urine NONE SEEN (NONE SEEN); RBC Urine 0-2 #/HPF (0-2); Squamous Epithelial Cell Urine FEW #/LPF (NONE/RARE); Urine Culture Indicated NO; WBC Urine NONE SEEN #/HPF (NONE SEEN)
[2023-08-15 14:19] LABS: HCG Qualitative NEGATIVE (NEGATIVE); Internal Control Within Normal Limits
[2023-08-15 14:27] LABS: Alanine Aminotransferase 31 U/L (14-59); Albumin Globulin Ratio 1.1; Albumin Level 3.5 g/dL (3.4-5.0); Alkaline Phosphatase 67 U/L (46-116); Amylase 51 U/L (25-115); Anion Gap 14.1; Aspartate Amino Transferase 35 U/L (15-37); BUN Creatinine Ratio 10.6; Bilirubin Direct 0.1 mg/dL (0.0-0.2); Bilirubin Total 0.4 mg/dL (0.2-1.0); Carbon Dioxide 25.4 mmol/L (21.0-32.0); Chloride 106 mmol/L (98-107); Estimated GFR (African America >60 (>=60); Estimated GFR (Non-African Ame >60 (>=60); Globulin 3.1 g/dL; Glucose 92 mg/dL (74-106); Potassium 3.5 mmol/L (3.5-5.1); Sodium 142 mmol/L (136-145); Total Protein 6.6 g/dL (6.4-8.2)
[2023-08-15] MEDS: MORPHINE SULFATE 4 MG/ML VIAL IV ×2 (14:28→15:07)
--- NOTE | 2023-08-15 16:15 | XR_ITS ---
The [address] [address] Patient Name: JUAN KONG MRN: [id number] date: 1990 Sex: F Assigned Patient Location: Current Patient Location: Accession/Order Number: [id number] Exam Date: 08/15/2023 16:40 Report Date: 08/15/2023 17:50 At the request of: SHAIKH PAWEL Procedure: XR chest 1V EXAM: XR chest 1V HISTORY: verify PICC line placement COMPARISON: 06/28/2023. TECHNIQUE: AP upright portable. FINDINGS: Right PICC tip extends into the distal SVC. Interval development of mild pulmonary opacification within the medial left lung base, which may be secondary to atelectasis or pneumonia. The costophrenic angles are clear. Cardiomediastinal silhouette and pulmonary vascularity are within normal limits. XR/XR chest 1V IMPRESSION: 1. Right PICC tip extends into the distal SVC. 2. Development of mild pulmonary opacification within the medial left lung base. This may be secondary to atelectasis or pneumonia. Electronically authenticated by: MARLA NAJERA Date: 08/15/2023 17:50
[2023-08-15 16:20] VITALS: BP 116/77; PULSE 68; TEMP 36.8; O2SAT 98; BMI 28.4
--- OUTSIDE RECORDS SUMMARY | 2023-08-15 16:30 | XMS_ITS | CCD ---
Author Organization [facility] Care Team Providers Care Packing Checker Name Role Phone PHYSICIAN, DEFAULT Unavailable Unavailable PHYSICIAN, DEFAULT Unavailable Unavailable Shanna June Primary Care Provider Unavail able Slade GILL BOX TENDER, Shanna Primary Care Provider Mona vailable Slade COAL CUTTER - CAD APPLICATION SUPPORT SPECIALIST, Shanna Primary Care Provid er LUCIE MORA Attending Unavailable SHANNA JUNE Primary Care Unavailable SHANNA JUNE Referring Unavailable LUCIE MORA Attending Unavailable SHANNA JUNE Primary Care Unavailable SELF, SELF Referring Unavailable Antelom Davey Unavailable Deacon Kat MD Unavailable Slade CAMPOS, Shanna Unavailable [phone] Shanna June CNP Primary Care Provider Antelmo Davey MD Unavailable Wally Foley Primary Care Provider Shanna June Unavailable Wally Foley Primary Care Provider Antelmo Davey MD Unavailable Deacon Kat MD Unavailable [phone] Slade CAMPOS, Shanna Unavailable Slade CAMPOS Shanna Primary Care Provider Antelmo Davey MD Unavailable Deacon Kat MD Unavailable Slade CAMPOS, Shanna Unavailable [phone] Slade CAMPOS Shanna Primary Care Provider Slade MINI SHIFTER, Shanna Unavailable Slade MINI SHIFTER, Shanna Primary Care Provider Antelmo Davey MD Unavailable Deacon Kat MD Unavailable Slade MINI SHIFTER, Shanna Unavailable [phone] Slade MINI SHIFTER, Shanna Primary Care Provider [phone] Wally Foley MD Primary Care Provider [phone] Jaquan Morrow Primary Care Physician Agustin Valentino Unavailable Jaquan Morrow Primary Care [...] Unavailable ZURDO ., DR BURCH Admitting Unavailable CONWAY, DR BALDOMERO Campos Consulting Unavailable ZURDO ., DR BURCH Consulting Unavailable FOLEY ., DR WALLY Graf Primary Care Unavailable FOLEY ., DR WALLY Garf Consulting Unavailable FOLEY ., DR WALLY Graf [...] Unavailable Agustin Valentino Unavailable Agustin Bautista Unavailable [phone] Wally Foley Primary Care Provider WALLY FOLEY Primary Care Unavailable EMMY WATSON [id number] Attending Unavailable WALLY FOLEY Primary Care Unavailable JD RAINEY Attending Unavailable WALLY FOLEY Primary Care Unavailable Slade GILL BOX TENDER, Shanna Primary Care Provider Mona vakayeble DIMITRI WALKER Attending Unavailable SLADE, SHANNA Primary Care Unavailable Giedraitis , Michelle Henning Attending Unavailable CRISTHIAN, JAQUAN Primary Care Unavailable CRISTHIAN, JAQUAN Primary Care Unavailable RODRIGUEZ Attending Unavailable CAMDEN RODRIGUEZ Admitting Unavailable CRISTHIAN, JAQUAN Primary Care Unavailable BRUNO WHEAT Consulting Unavailable CORIE HENDRICKSON Attending Unavailable Cristhian COAL CUTTER.Jaquan CAMPOS Primary Care Provider JAQUAN MORROW L Primary Care Unavailable VIC RAMOS Attending Unavailable VIC RAMOS Admitting Unavailable Cristhian, CAD APPLICATION SUPPORT SPECIALIST-C Jaquan Ortega Primary Care Provider DO Claus Obrien Emergency Provider GENERIC PROVIDER, NO ASSIGNED PCP Primary Care Unavailable Generic Provider MD, No Assigned Pcp Primary Car e Provider Unavailable Generic Provider MD, No Assigned Pcp Primary Car e Provider Unavailable Dericimlaurel, GILL BOX TENDER-BC Trace E Emergency Provider [phone] Generic Provider MD, No Assigned Pcp Primary Car e Provider Unavailable Cristhian, CAD APPLICATION SUPPORT SPECIALIST-C Jaquan Ortgea Primary Care Provider Beverley, [facility]- Trace E Emergency Provider [phone] SLIM Parker Emergency Provider Cristhian COAL CUTTER.Jaquan CAMPOS Primary Care Provider Generic Provider , No Assigned Pcp Primary Car e Provider Unavailable GENERIC PROVIDER, NO ASSIGNED PCP Primary Care Unavailable Deacon Kat MD Unavailable [phone] Generic Provider , No Assigned Pcp Primary [...] CRISTHIAN, JAQUAN L Primary Care Unavailable Cristhian, CAD APPLICATION SUPPORT SPECIALIST-C Jaquan Ortega Primary Care Provider MD Thomas Calix Primary Care Provider [phone] GABRIELLA Sabillon Emergency Provider [phone] MD Tahir Whitt Admit Provider MD Tahir Whitt Attending Provider [phone] DO Camden Rodriguez Admit Provider DO Camden Rodriguez Attending Provider MD Keven Kimbrough Other Provider SHERRY MAGAÑA Attending Unavailable GENERIC [...] Attending Unavailable DO Jeramy Cunningham Emergency Provider MARCOS MORENO Attending Unavailable JR. WARREN GEORGE C Attending Unavaila ble JR. WARREN GEORGE C Referring Unavaila ble Agustin Bautista Unavailable Thomas Calix MD Primary Care Provider [phone] NONE, XXXX Primary Care Physician Unavailab [...] (NON-STEROIDAL ANTI-INFLAMMATOR Y DRUG)] Drug Allergy 01-30-20 [facility] Other [place] [facility] Opioid Agonists (6 sources) Codeine; Translations: [CODEINE] Drug Allergy 10-04-19 GI Upset [facility] Other [place] [facility] (5 sources) Codeine And Related Propensity to adverse reactions to drug 07-08-19 14 Other (See Comments), Nausea And Vomiting [facility] (20 sources) Codeine; Translations: [codeine] Drug Allergy 10-04-19 20 GI Upset, Nausea/vomitin g [facility] (3 sources) Propofol Drug Allergy 06-19-19 Other: See Comments [facility] (20 sources) Adhesive Tape-Silicones; Translations: [ADHESIVE TAPE-SILICONES] Drug Intolerance 02-07-20 20 Intolerance [facility] (2 sources) Morphine And Related Propensity to adverse reactions to drug 07-08-19 14 Other (See Comments), Nausea And Vomiting [facility] (7 sources) Codeine Drug Allergy vomiting [place] [facility]in Other (4 sources) Acetaminophen / oxyCODONE Drug Allergy anaphylaxis [facility] etechies.in Other (20 sources) Non-steroidal anti-inflammator y agent; Translations: [NSAIDS (NON-STEROIDAL ANTI-INFLAMMATOR Y DRUG)] Propensity to adverse reactions to drug 01-30-20 22 Contraindicati on-Medical Surgical, Nausea/vomitin g [facility] Work Phone: (1 source) Codeine Drug Allergy 07-08-19 14 [facility] Repository (1 source) Anastia Drug allergy (disorder) [facility] (15 sources) Non-steroidal anti-inflammator y agent; Translations: [NSAIDs] Drug allergy Unknown (qualifier value) [facility] (2 sources) Acetaminophen; Translations: [acetaminophen] Drug Allergy 04-06-19 anaphylaxis [facility] (7 sources) oxyCODONE; Translations: [oxycodone] Drug Allergy 04-06-19 24 anaphylaxis [facility] (5 sources) NSAIDS (Non-Steroidal Anti-Inflamma; Translations: [NSAIDS (Non-Steroidal Anti-Inflamma] Propensity to adverse reactions 07-16-19 24 d/t surgery [facility] (1 source) Codeine Drug Allergy 07-31-19 24 [facility] Repository Medications Current Medications Medication Drug [...] tab(s), Oral, BID, 30 tab(s), Refill(s) 0, [facility]/pharmacy #[id number], 167.2, cm, 05/05/22 13:30:00 EDT, Height/Length [...] for 3 day(s), 10 tab(s), Refill(s) 0, [facility]/pharmacy #[id number], 168, cm, 10/19/22 8:44:00 EDT, Height/Length Dosing, 85.6, kg, 10/19/22 8:44:00 EDT, Weight Dosing Start Date: 10/19/22 Stop Date: 10/22/22 Status: Ordered Start: 06-07-2022 acetaminophen- oxycodone 325 mg-5 mg Tab 1 tab(s), Oral, q4hr for pain, 12 tab(s), Refill(s) 0, [facility]/pharmacy #[id number], 168, cm, 06/07/22 10:23:00 EDT, Height/Length [...] day(s), # 28 tab(s), Refills(s) 0, Pharmacy: [facility]/pharmacy #[id number], 168, cm, 06/17/22 10:54:00 EDT, Height/Length [...] 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 [id number] 200 actuat albuterol 0.09 mg/actuat metered dose [...] puff(s), Inhalation, q6hr, 18 gm, Refill(s) 3, [facility]/pharmacy #[id number], 167, cm, 05/17/23 14:25:00 EDT, Height/Length Dosing, 81, kg, 05/17/23 14:25:00 EDT, Weight Dosing Start Date: 05/31/23 Status: Ordered Start: 12-30-2022 take 2 puff(s) by in halation every six hours Albuterol (Eqv-Ventolin HFA) 90 mcg/inh inhalation aerosol 2 puff(s), Inhalation, q6hr, 18 gm, Refill(s) 0, [facility]/pharmacy #[id number], 168, cm, 12/29/22 15:01:00 EST, Height/Length [...] day(s), # 6 tab(s), Refills(s) 0, Pharmacy: [facility]/pharmacy #[id number], 168, cm, 12/29/22 15:01:00 EST, Height/Length [...] on above: Take 2 tablets by [facility] three times a day as needed for [...] day(s), # 21 cap(s), Refills(s) 0, Pharmacy: [facility]/pharmacy #[id number], 168, cm, 12/29/22 15:01:00 EST, Height/Length [...] day(s), # 20 tab(s), Refills(s) 0, Pharmacy: [facility]/pharmacy #[id number], 168, cm, 06/17/22 10:54:00 EDT, Height/Length [...] day(s), # 28 tab(s), Refills(s) 0, Pharmacy: [facility]/pharmacy #[id number], 167, cm, 05/06/23 15:49:00 EDT, Height/Length Dosing, 82.7, kg, 05/06/23 15:49:00 EDT, Weight Dosing Start Date: 05/06/23 Stop Date: 05/13/23 Status: Ordered Start: 04-02-2023 take 2 capsules by m outh four times daily Bentyl 10 mg Cap 20 mg = 2 cap(s), Oral, QID, # 20 cap(s), Refills(s) 0, Pharmacy: [facility]/pharmacy #[id number], 167, cm, 04/02/23 11:01:00 EST, Height/Length Dosing, 82.7, kg, 04/02/23 11:01:00 EST, Weight Dosing Start Date: 04/02/23 Status: Ordered Start: 06-05-2022 End: 06-15-2022 take 1 capsule by mouth four times daily Bentyl 10 mg Cap 10 mg = 1 cap(s), Oral, QID, X 10 day(s), # 40 cap(s), Refills(s) 0, Pharmacy: [facility]/pharmacy #[id number], 167.2, cm, 05/05/22 13:30:00 EDT, Height/Length Dosing, 84.5, kg, 05/05/22 13:30:00 EDT, Weight Dosing Start Date: 06/05/22 Stop Date: 06/15/22 Status: Ordered Start: 12-20-2020 take 2 capsules by m out four times daily Bentyl 10 mg Cap 20 mg = 2 cap(s), Oral, QID, # 20 cap(s), Refills(s) 0, [id number], cm, 12/20/20 9:30:00 EDT, Height/Length [...] BID, # 20 cap(s), Refills(s) 0, Pharmacy: [facility]/pharmacy #[id number], 167.2, cm, 05/05/22 13:30:00 EDT, Height/Length [...] Comment on above: Take 1 tablet by rboinson th once daily. Take 1 tablet by [...] Active Start: 01-20-2021 take 1 capsule by [facility] once daily, then take 1 capsule by mouth twice daily, then take 1 capsule by mouth three times daily gabapentin 300 mg Cap See Instructions, 1 cap(s) Oral daily x 1 day, 1 tab BID x 1 day, then 1 tab TID thereafter., # 90 cap(s), Refills(s) 0, Pharmacy: [facility]/pharmacy #[id number], 167, cm, 01/16/21 13:32:00 EST, Height/Length [...] Daily, # 60 tab(s), Refills(s) 1, [id number], cm, 04/02/23 11:01:00 EST, Height/Length Dosing, 82.7, kg, 04/02/23 11:01:00 EST, Weight Dosing Start Date: 05/03/23 Status: Ordered Start: 03-03-2023 take 1 tablet by robinson once daily levothyroxine 100 mcg (0.1 mg) Tab 100 mcg = 1 tab(s), Oral, Daily, # 90 tab(s), Refills(s) 0, Pharmacy: [facility], 168, cm, 02/03/23 14:52:00 EST, Height/Length Dosing, 85.5, kg, 02/03/23 14:52:00 EST, Weight Dosing Start Date: 03/03/23 Status: Ordered Start: 10-05-2022 take 1 tablet by robinson once daily levothyroxine 100 mcg (0.1 mg) Tab 100 mcg = 1 tab(s), Oral, Daily, # 30 tab(s), Refills(s) 1, Pharmacy: [facility]/pharmacy #[id number], 168, cm, 07/29/22 8:44:00 EDT, Height/Length Dosing, 81, kg, 07/29/22 8:44:00 EDT, Weight Dosing Start Date: 10/05/22 Status: Ordered Start: 07-22-2022 take 1 tablet by robinson th once daily levothyroxine 125 mcg (0.125 mg) Tab See Instructions, TAKE 1 TABLET BY MOUTH EVERY DAY, # 30 tab(s), Refills(s) 2, Pharmacy: [id number], 168, cm, 07/20/22 10:48:00 EDT, Height/Length Dosing, 81.1, kg, 07/20/22 10:48:00 EDT, Weight Dosing Start Date: 07/22/22 Status: Ordered Start: 04-23-2022 take 1 tablet by robinson th once daily levothyroxine 125 mcg (0.125 mg) Tab 125 mcg = 1 tab(s), Oral, Daily, # 90 tab(s), Refills(s) 0, Pharmacy: [facility]/pharmacy #[id number], 167.6, cm, 04/15/21 22:31:00 EST, Height/Length [...] on above: Take 1 capsule by [facility] DAILY (6 AM). Take 1 capsule by [facility] daily at 6 am. liothyronine sodium 0.005 mg oral tablet (20 sources) l-Triiodothyronin e Start: 03-03-2023 take 1 tablet by mouth once daily liothyronine 5 mcg Tab 5 mcg, Oral, Daily, # 90 tab(s), Refills(s) 3, Pharmacy: [facility], 168, cm, 02/03/23 14:52:00 EST, Height/Length Dosing, 85.5, kg, 02/03/23 14:52:00 EST, Weight Dosing Start Date: 03/03/23 Status: Ordered Start: 11-25-2022 take 1 tablet by robinson once daily liothyronine 5 mcg Tab 5 mcg, Oral, Daily, # 90 tab(s), Refills(s) 3, Pharmacy: [facility]/pharmacy #[id number], 168, cm, 11/25/22 11:03:00 EDT, Height/Length Dosing, 82.5, kg, 11/25/22 11:03:00 EDT, Weight Dosing Start Date: 11/25/22 Status: Ordered Start: 05-21-2022 take 1 tablet by robinson once daily liothyronine 5 mcg Tab 5 mcg, Oral, Daily, # 90 tab(s), Refills(s) 1, Pharmacy: [facility]/pharmacy #[id number], 167.2, cm, 05/05/22 13:30:00 EDT, Height/Length [...] dizziness, # 30 tab(s), Refills(s) 0, Pharmacy: [facility]/pharmacy #[id number], 168, cm, 06/10/22 10:57:00 EDT, Height/Length Dosing, 83.7, kg, 06/10/22 10:57:00 EDT, Weight Dosing Start Date: 06/10/22 Status: Ordered metFORMIN hydrochloride 1000 mg oral tablet (6 sources) Biguanide Start: 03-04-2018 take 1000 mg by mouth twice daily metformin 1,000 mg, Oral, BID, Refills(s) 0, Blood glucose Start Date: 03/04/18 Status: Ordered take 2 tablets by [facility] twice daily at mealtime metformin 500 MG [...] 0359 Start: 06-02-2023 [facility] Robaxin-750 oral tablet 750 mg [...] day(s), # 21 tab(s), Refills(s) 0, [id number] 168, cm, 12/29/22 15:01:00 EST, Height/Length Dosing, 83.8, kg, 12/29/22 15:01:00 EST, Weight Dosing Start Date: 12/29/22 Stop Date: 01/04/23 Status: Ordered Start: 07-20-2022 End: 07-26-2022 Medrol 4 mg Tab = 1 packet(s ), Oral, As Directed, as directed on package labeling, X 6 day(s), # 21 tab(s), Refills(s) 0, [id number] 168, cm, 07/20/22 10:48:00 EDT, Height/Length [...] labeling, # 21 tab(s), Refills(s) 0, Pharmacy: [facility]/pharmacy #[id number], 167, cm, 04/02/23 11:01:00 EST, Height/Length [...] day(s), # 30 tab(s), Refills(s) 0, Pharmacy: [facility]/pharmacy #[id number], 168, cm, 06/17/22 10:54:00 EDT, Height/Length [...] 1:00am Start: 11-10-2022 take 2 tablets by [facility] once daily at bedtime mirtazapine (Remeron) 15 [...] TABLET BY ROBINSON TH DAILY AT BEDTIME [facility] Prescription (1 source) Start: 06-11-19 [facility] Prescription Start Date: 06/11/23 Status: Ordered 1 [...] weeks. Do not use calcium as a shredded filler cigar maker machine preparation. If insomnia or vivid dreams [...] weeks. Do not use calcium as a shredded filler cigar maker machine preparation. If insomnia or vivid dreams [...] Run for 18 hours, off 6 hours. 56454 mL 3 05/29/2023 06/09/2023 Discontinued Start: 05-29-2023 End: 08-27-2023 nutritional supplements (NUT PIPO 2.0) 0.08 gram-2 kcal/mL liqd 45 mL/hr by FEEDING TUBE route once daily. Run for 18 hours, off 6 hours. 60814 mL 3 05/29/2023 08/27/2023 Active Start: 05-28-2023 End: 08-26-2023 nutritional supplements (NUT PIPO 2.0) 0.08 gram-2 kcal/mL liqd 45 mL/hr by FEEDING TUBE route once daily. Run for 18 hours, off 6 hours. 48693 mL 3 05/28/2023 08/26/2023 Active Comment on above: 45 mL/hr by FEEDING TUBE route once daily. Run for 18 hours, off 6 hours. nystatin 133467 unt/ml oral suspension (1 source) Polyene Antifungal [...] q6hr, # 12 tab(s), Refills(s) 0, Pharmacy: [facility]/pharmacy #[id number], 168, cm, 06/07/22 10:23:00 EDT, Height/Length Dosing, 83, kg, 06/07/22 10:23:00 EDT, Weight Dosing Start Date: 06/07/22 Status: Ordered Start: 07-27-2021 End: 07-27-2021 ondansetron (ZOFRAN) injecti on 4 mg Start: 12-28-2020 take 1 tablet by robinson th three times daily Zofran ODT 4 mg Tab 4 mg = 1 tab(s), Oral, TID, # 10 tab(s), Refills(s) 0, [id number] 167, cm, 12/20/20 9:30:00 EDT, Height/Length [...] pain, # 12 cap(s), Refills(s) 0, Pharmacy: [facility]/pharmacy #[id number], 167, cm, 05/12/23 9:37:00 EDT, Height/Length Dosing, 79.8, kg, 05/12/23 9:37:00 EDT, Weight Dosing Start Date: 05/14/23 Status: Ordered Start: 05-09-2023 End: 05-12-2023 take 1 tablet by mouth every six hours oxyCODONE 5 mg Tab 5 mg = 1 tab(s), Oral, q6hr, X 3 day(s), # 10 tab(s), Refills(s) 0, Pharmacy: [facility]/pharmacy #[id number], 167, cm, 05/09/23 11:51:00 EDT, Height/Length [...] up to 5 doses. polyethylene glycol 3350 31485 mg powder for oral solution (20 sources) Osmotic Laxative Start: 06-23-2022 Polyethylene Glycol 3350 (Miralax) 17 gram/dose powder Active 17 GM PO Twice daily May 30, 2023 12:00am mix into 4-8 oz. of any hot/cold/room temp. beverage; use immediately Start: 06-23-2022 End: 09-07-2023 polyethylene glycol 3350 (ME RALAX) 17 gram/dose powder Take 17 g by mouth once daily as needed for constipation. 0 06/09/2023 09/07/2023 Active Start: 06-23-2022 End: 06-09-2023 polyethylene glycol 3350 (ME RALAX) 17 gram/dose powder Take 17 g [...] Nausea/Vomiting, # 6 EA, Refills(s) 0, Pharmacy: [facility]/pharmacy #[id number], 167, cm, 05/06/23 15:49:00 EDT, Height/Length [...] TID, # 15 tab(s), Refills(s) 0, Pharmacy: [facility]/pharmacy #[id number], 168, cm, 10/20/22 8:21:00 EDT, Height/Length Dosing, 85.6, kg, 10/20/22 8:21:00 EDT, Weight Dosing Start Date: 10/20/22 Status: Ordered Start: 06-10-2022 take 1 tablet by robinson th every four hours promethazine 12.5 mg oral tablet 12.5 mg = 1 tab(s), Oral, q4hr, # 60 tab(s), Refills(s) 0, Pharmacy: [facility]/pharmacy #[id number], 168, cm, 06/10/22 12:37:00 EDT, Height/Length Dosing, 83.7, kg, 06/10/22 12:37:00 EDT, Weight Dosing Start Date: 06/10/22 Status: Ordered Start: 12-20-2020 take 1 tablet by robinson every six hours as needed for nausea promethazine 25 mg Tab 25 mg = 1 tab(s), Oral, q6hr, PRN as needed for nausea/vomiting, # 12 tab(s), Refills(s) 0, [id number] 167, cm, 12/20/20 9:30:00 EDT, Height/Length [...] Nausea, # 20 tab(s), Refills(s) 0, Pharmacy: [facility]/pharmacy #[id number], 167, cm, 05/12/23 9:37:00 EDT, Height/Length Dosing, 79.8, kg, 05/12/23 9:37:00 EDT, Weight Dosing Start Date: 05/14/23 Status: Ordered Start: 04-02-2023 End: 04-16-2023 sucralfate 1 g/10 mL Oral Nance sp 10 mL 1 gm = 10 mL, Oral, QIDACHS, X 14 day(s), # 560 mL, Refills(s) 0, Pharmacy: [facility]/pharmacy #[id number], 167, cm, 04/02/23 11:01:00 EST, Height/Length [...] QID, # 280 mL, Refills(s) 0, Pharmacy: [facility]/pharmacy #[id number], 168, cm, 10/19/22 8:44:00 EDT, Height/Length [...] Daily, # 10 cap(s), Refills(s) 0, Pharmacy: [facility]/pharmacy #[id number], 168, cm, 06/17/22 10:54:00 EDT, Height/Length [...] Nausea/Vomiting, # 12 tab(s), Refills(s) 0, Pharmacy: [facility]/pharmacy #[id number], 167, cm, 05/06/23 15:49:00 EDT, Height/Length [...] 08-30-2021 bupivacaine-EPINEP Hrine PF (MARCAINE-w/EPINEP HRINE) 0.5% -1:[id number] injection 10 mL calcium chloride 0.001 meq/ml [...] Refill(s) 0, Take 1 puff 2x daily., [facility]/pharmacy #[id number], 168, cm, 12/29/22 15:01:00 EST, Height/Length [...] kcal/mL liqd TF for PEG-J Rate: 45cc/hr 04100 mL 1 05/26/2023 06/09/2023 Discontinued Start: 05-26-2023 nutritional nance pplements (NUTREN 1.5) 0.07 gram-1.5 kcal/mL liqd TF for PEG-J Rate: 45cc/hr 85537 mL 1 05/26/2023 Active Start: 05-21-2023 End: [...] Start: 10-19-2022 take 1 capsule by [facility] once daily omeprazole (PRILOSEC) 20 mg capsule [...] Start: 07-27-2021 take 1 capsule by [facility] twice daily before mealtime omeprazole (PRILOSEC) 20 MG delayed release capsule Take 1 capsule by mouth 2 times daily (before meals) 60 capsule 0 07/27/2021 Active Start: 07-21-2021 End: 08-29-2021 take 1 capsule by mouth twice daily omeprazole (PRILOSEC) 40 mg capsule Take 1 capsule by mouth twice daily. 60 capsule 0 08/22/2021 08/29/2021 Discontinued Start: 01-15-2021 take 1 capsule by [facility] twice daily omeprazole (PRILOSEC) 40 mg capsule Take 1 capsule by mouth twice daily. 60 capsule 0 01/15/2021 Active Comment on above: Take 1 capsule by [facility] twice daily. Take 1 capsule by [facility] once daily. Take 1 capsule by [facility] as needed. TAKE 1 CAPSULE BY [facility] NEEDED oxygen (O2) therapy (1 source) Start: [...] Active Start: 05-14-2023 take 1 tablet by [facility] once daily Pantoprazole [address] Tab 40 mg = 1 tab(s), Oral, Daily, # 30 tab(s), Refills(s) 0, Pharmacy: [facility]/pharmacy #[id number], 167, cm, 05/12/23 9:37:00 EDT, Height/Length Dosing, [...] sodium chloride 0.9% 50 mL IV sennosides, nursing home 8.6 mg oral tablet (10 sources) Start: [...] on above: Take 2 tablets by [facility] four times daily as needed. solifenacin succinate [...] Active Start: 11-16-2022 take 1 tablet by [facility] every eight hours as needed for pain [...] pain, # 30 tab(s), Refills(s) 0, Pharmacy: [facility]/pharmacy #[id number], 168, cm, 06/26/22 14:12:00 EDT, Height/Length [...] lead to skin thinning, dyspigmentation, and stretch agiular. 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] Onset: 3 Episodic Other [...] 08-14-2023 ALT [Catalytic activity/Vol] 21 U/L 7-52 [facility] Albumin [Mass/volume] in Ser um or Plasma by Bromocresol green (BCG) dye binding methoOrdered By: Shaan Sabillon on 08-14-2023 Albumin BCG dye [Mass/Vol] 4.2 g/dL 3.5-5.7 [facility] Alkaline phosphatase [Enzyma tic activity/volume] in Serum or PlasmaOrdered By: Shaan Sabillon on 08-14-2023 ALP [Catalytic activity/Vol] 59 U/L 34-104 [facility] Aspartate aminotransferase [ Enzymatic activity/volume] in Serum or PlasmaOrdered By: Shaan Sabillon on 08-14-2023 AST [Catalytic activity/Vol] 32 U/L 13-39 [facility] Basophils Auto (Bld) [#/Vol] Ordered By: Shaan Sabillon on 08-14-2023 Basophils (Bld) [#/Vol] 0.0 10*3/uL 0.0-0.2 [facility] Basophils/100 WBC Auto (Bld) Ordered By: Shaan Sabillon on 08-14-2023 Basophils/100 WBC (Bld) 0.6 % . [facility] Bilirubin Test strip Ql (U)O rdered By: Shaan Sabillon on 08-14-2023 Bilirubin Ql (U) Negative Negative [facility] Bilirubin.direct [Mass/volum e] in Serum or PlasmaOrdered By: Shaan Sabillon on 08-14-2023 Bilirubin.direct [Mass/Vol] 0.10 mg/dL 0.03-0.18 [facility] Bilirubin.total [Mass/volume ] in Serum or PlasmaOrdered By: Shaan Sabillon on 08-14-2023 Bilirubin [Mass/Vol] 0.3 mg/dL 0.3-1.0 [facility] Calcium [Mass/volume] in Ser um or PlasmaOrdered By: Shaan Sabillon on 08-14-2023 Calcium [Mass/Vol] 8.7 mg/dL 8.6-10.3 [facility] Carbon dioxide, total [Moles /volume] in Serum or PlasmaOrdered By: Shaan Sabillon on 08-14-2023 CO2 [Moles/Vol] 21.8 mmol/L 21.0-31.0 [facility] Chloride [Moles/volume] in S elder or PlasmaOrdered By: Shaan Sabillon on 08-14-2023 Chloride [Moles/Vol] 110 mmol/L High 98-107 [facility] Color Auto (U)Ordered By: Amari Sabillon on 08-14-2023 Color (U) Light-yellow Yellow [facility] Creatinine [Mass/volume] in Serum or PlasmaOrdered By: Shaan Sabillon on 08-14-2023 Creatinine [Mass/Vol] 0.72 mg/dL 0.60-1.20 [facility] Eosinophils Auto (Bld) [#/Vo l]Ordered By: Shaan Sabillon on 08-14-2023 Eosinophils (Bld) [#/Vol] 0.0 10*3/uL 0.0-0.45 [facility] Eosinophils/100 WBC Auto (Bl d)Ordered By: Shaan Sabillon on 08-14-2023 Eosinophils/100 WBC (Bld) 0.7 % . [facility] Erythrocyte distribution wid th Auto (RBC) [Ratio]Ordered By: Shaan Sabillon on 08-14-2023 Erythrocyte distribution width (RBC) [Ratio] 14.0 % 11.9-15.3 [facility] Globulin Calc (S) [Mass/Vol] Ordered By: Shaan Sabillon on 08-14-2023 Globulin (S) [Mass/Vol] 2.7 g/dL [facility] Glucose [Mass/volume] in Ser um or PlasmaOrdered By: Shaan Sabillon on 08-14-2023 Glucose [Mass/Vol] 82 mg/dL 70-100 [facility] Comment on above: ADA recommended refe rence rangeRandom Glucose Reference Range is dependent on time and content of last meal. Glucose of more than 200 mg/dL in a nonstressed, ambulatory subject supports the diagnosis of Diabetes Mellitus. Glucose [Mass/volume] in Uri ne by Test stripOrdered By: Shaan Sabillon on 08-14-2023 Glucose Test strip (U) [Mass/Vol] Normal mg/dL Normal [facility] Hematocrit Auto (Bld) [Volum e fraction]Ordered By: Shaan Sabillon on 08-14-2023 Hematocrit (Bld) [Volume fraction] 34.7 % 34.0-46.4 [facility] Hemoglobin Test strip Ql (U) Ordered By: Shaan Sabillon on 08-14-2023 Hemoglobin Ql (U) Negative Negative [facility] Hemoglobin [Mass/volume] in BloodOrdered By: Shaan Sabillon on 08-14-2023 Hemoglobin (Bld) [Mass/Vol] 11.6 g/dL Low 11.8-15.4 [facility] Ketones Test strip Ql (U)Ord ered By: Shaan Sabillon on 08-14-2023 Ketones Ql (U) Negative Negative [facility] Lactate [Moles/volume] in Se rum or PlasmaOrdered By: Shaan Sabillon on 08-14-2023 Lactate [Moles/Vol] 0.6 mmol/L 0.5-2.2 [facility] Leukocyte esterase [Presence ] in Urine by Test stripOrdered By: Shaan Sabillon on 08-14-2023 Leukocyte esterase Test strip Ql (U) Negative Negative [facility] Leukocytes [#/volume] correc darvin for nucleated erythrocytes in Blood by Automated counOrdered By: Shaan Sabillon on 08-14-2023 WBC corrected for nucl RBC Auto (Bld) [#/Vol] 6.6 10*3/uL 3.8-11.6 [facility] Lipase [Enzymatic activity/v olume] in Serum or PlasmaOrdered By: Shaan Sabillon on 08-14-2023 Lipase [Catalytic activity/Vol] 67.0 U/L 11.0-82.0 [facility] Lymphocytes Auto (Bld) [#/Vo l]Ordered By: Shaan Sabillon on 08-14-2023 Lymphocytes (Bld) [#/Vol] 2.5 10*3/uL 1.00-4.8 [facility] Lymphocytes/100 WBC Auto (Bl d)Ordered By: Shaan Sabillon on 08-14-2023 Lymphocytes/100 WBC (Bld) 37.3 % . [facility] MCH Auto (RBC) [Entitic mass ]Ordered By: Shaan Sabillon on 08-14-2023 MCH (RBC) [Entitic mass] 29.0 pg 24.7-34.3 [facility] MCHC Auto (RBC) [Mass/Vol]Or dered By: Shaan Sabillon on 08-14-2023 MCHC (RBC) [Mass/Vol] 33.4 g/dL 32.0-35.0 [facility] MCV Auto (RBC) [Entitic vol] Ordered By: Shaan Sabillon on 08-14-2023 MCV (RBC) [Entitic vol] 87.0 fL 80-100 [facility] Monocyte distribution width [Entitic volume] in Blood by AutomatedOrdered By: Shaan Sabillon on 08-14-2023 Monocyte distribution width Auto (Bld) [Entitic vol] 16.29 % 0.00-20.00 [facility] Monocytes Auto (Bld) [#/Vol] Ordered By: Shaan Sabillon on 08-14-2023 Monocytes (Bld) [#/Vol] 0.5 10*3/uL 0.0-0.8 [facility] Monocytes/100 WBC Auto (Bld) Ordered By: Shaan Sabillon on 08-14-2023 Monocytes/100 WBC (Bld) 7.0 % . [facility] Neutrophils Auto (Bld) [#/Vo l]Ordered By: Shaan Sabillon on 08-14-2023 Neutrophils (Bld) [#/Vol] 3.6 10*3/uL 1.8-7.7 [facility] Neutrophils/100 WBC Auto (Bl d)Ordered By: Shaan Sabillon on 08-14-2023 Neutrophils/100 WBC (Bld) 54.4 % . [facility] Nitrite Test strip Ql (U)Ord ered By: Shaan Sabillon on 08-14-2023 Nitrite Ql (U) Negative Negative [facility] No Panel InformationOrdered By: Shaan Sabillon on 08-14-2023 Estimated GFR (CKD-EPI) > 60.0 mL/Min [facility] Creatinine Clearance (Chem 116.71 [facility] Nucleated erythrocytes [Pres ence] in Blood by Automated countOrdered By: Shaan Sabillon on 08-14-2023 Nucleated RBC Auto Ql (Bld) 0.0 /100{WBC} 0-0.5 [facility] Platelet mean volume Auto (B ld) [Entitic vol]Ordered By: Shaan Sabillon on 08-14-2023 Platelet mean volume (Bld) [Entitic vol] 9.0 fL 6.3-10.7 [facility] Platelets Auto (Bld) [#/Vol] Ordered By: Shaan Sabillon on 08-14-2023 Platelets (Bld) [#/Vol] 281 10*3/uL 150-450 [facility] Potassium [Moles/volume] in Serum or PlasmaOrdered By: Shaan Sabillon on 08-14-2023 Potassium [Moles/Vol] 3.2 mmol/L Low 3.5-5.1 [facility] Protein Test strip (U) [Mass /Vol]Ordered By: Shaan Sabillon on 08-14-2023 Protein (U) [Mass/Vol] Negative Negative [facility] Protein [Mass/volume] in Ser um or PlasmaOrdered By: Shaan Sabillon on 08-14-2023 Protein [Mass/Vol] 6.9 g/dL 6.4-8.9 [facility] RBC Auto (Bld) [#/Vol]Ordere d By: Shaan Sabillon on 08-14-2023 RBC (Bld) [#/Vol] 3.99 10*6/uL 3.60-5.00 [facility] Serum or plasma albumin/glob ulin mass ratioOrdered By: Shaan Sabillon on 08-14-2023 Albumin/Globulin [Mass ratio] 1.6 {ratio} [facility] Serum or plasma anion gap de terminationOrdered By: Shaan Sabillon on 08-14-2023 Anion gap [Moles/Vol] 10.4 mmol/L 6.0-15.0 [facility] Serum or plasma non-glucuron idated bilirubin measurement (mass/volume)Ordered By: Shaan Sabillon on 08-14-2023 Bilirubin.indirect [Mass/Vol] 0.2 mg/dL [facility] Sodium [Moles/volume] in Ser um or PlasmaOrdered By: Shaan Saibllon on 08-14-2023 Sodium [Moles/Vol] 139 mmol/L 136-145 [facility] Specific gravity Test strip (U) [Rel density]Ordered By: Shaan Sabillon on 08-14-2023 Specific gravity (U) [Rel density] 1.026 1.001-1.030 [facility] Urea nitrogen [Mass/volume] in Serum or PlasmaOrdered By: Shaan Sabillon on 08-14-2023 Urea nitrogen [Mass/Vol] 8 mg/dL 7-25 [facility] Urine appearanceOrdered By: Shaan Sabillon on 08-14-2023 Appearance (U) Clear Clear [facility] Urobilinogen Test strip (U) [Mass/Vol]Ordered By: Shaan Sabillon on 08-14-2023 Urobilinogen (U) [Mass/Vol] Normal mg/dL Normal [facility] WBC Auto (Bld) [#/Vol]Ordere d By: Shaan Sabillon on 08-14-2023 WBC (Bld) [#/Vol] 6.6 10*3/uL 3.8-11.6 [facility] pH Test strip (U)Ordered By: Shaan Sabillon on 08-14-2023 pH (U) 7.0 [pH] 5.0-9.0 [facility] CNPNon 08-12-2023 CNPN Normal [facility] CNOVon 08-09-2023 CNOV Normal [facility] CASE MGT INIT ASSESon 2023 CASE MGT INIT ASSES Normal [facility] CBC panel Auto (Bld)on 08-07 Erythrocyte distribution width (RBC) [Ratio] 13.2 % Normal 11.5-15.0 [facility] Comment on above: Order Comment: Speci men Type: BLOOD SPECIMENOrdering Facility: [facility] Address: [address] [place] [address] Performed By: #### 5 8410-2 ####[facility] [id number] [place] [address] [place] Hematocrit (Bld) [Volume fraction] 31.1 % Low 36.0-46.0 [facility] Comment on above: Order Comment: Speci men Type: BLOOD SPECIMENOrdering Facility: [facility] Address: [address] [place] [address] Performed By: #### 5 8410-2 ####[facility] [id number] [place] [address] [place] Hemoglobin (Bld) [Mass/Vol] 9.9 g/dL Low 11.5-15.5 [facility] Comment on above: Order Comment: Speci men Type: BLOOD SPECIMENOrdering Facility: [facility] Address: [address] [place] [address] Performed By: #### 5 8410-2 ####[facility] [id number] [place] [address] [place] MCH (RBC) [Entitic mass] 29.4 pg Normal 26.0-34.0 [facility] Comment on above: Order Comment: Speci men Type: BLOOD SPECIMENOrdering Facility: [facility] Address: [address] [place] [address] Performed By: #### 5 8410-2 ####[facility] [id number] [place] [address] [place] MCHC (RBC) [Mass/Vol] 31.8 g/dL Normal 30.5-36.0 [facility] Comment on above: Order Comment: Speci men Type: BLOOD SPECIMENOrdering Facility: [facility] Address: [address] [place] [address] Performed By: #### 5 8410-2 ####[facility] [id number] [place] [address] [place] MCV (RBC) [Entitic vol] 92.3 fL Normal 80.0-100.0 [facility] Comment on above: Order Comment: Speci men Type: BLOOD SPECIMENOrdering Facility: [facility] Address: [address] [place] [address] Performed By: #### 5 8410-2 ####[facility] [id number] [place] [address] [place] Nucleated RBC (Bld) [#/Vol] 10*3/uL Normal <0.01 [facility] Comment on above: Order Comment: Speci men Type: BLOOD SPECIMENOrdering Facility: [facility] Address: [address] [place] [address] Performed By: #### 5 8410-2 ####[facility] [id number] [place] [address] [place] Platelet mean volume (Bld) [Entitic vol] 10.3 fL Normal 9.0-12.7 [facility] Comment on above: Order Comment: Speci men Type: BLOOD SPECIMENOrdering Facility: [facility] Address: [address] [place] [address] Performed By: #### 5 8410-2 ####[facility] [id number] [place] [address] [place] Platelets (Bld) [#/Vol] 267 10*3/uL Normal 150-400 [facility] Comment on above: Order Comment: Speci men Type: BLOOD SPECIMENOrdering Facility: [facility] Address: [address] [place] [address] Performed By: #### 5 8410-2 ####[facility] [id number] [place] [address] [place] RBC (Bld) [#/Vol] 3.37 10*6/uL Low 3.90-5.20 [facility] Comment on above: Order Comment: Speci men Type: BLOOD SPECIMENOrdering Facility: [facility] Address: [address] [place] [address] Performed By: #### 5 8410-2 ####[facility] [id number] [place] [address] [place] WBC (Bld) [#/Vol] 3.17 10*3/uL Low 3.70-11.00 [facility] Comment on above: Order Comment: Speci men Type: BLOOD SPECIMENOrdering Facility: [facility] Address: [address] [place] [address] Performed By: #### 5 8410-2 ####[facility] [id number] [place] [address] [place] CNDSon 08-08-2023 CNDS Normal [facility] CRP SerPl-mCncon 08-08-2023 CRP [Mass/Vol] mg/L Normal <0.9 [facility] Comment on above: Order Comment: Speci men Type: BLOOD SPECIMENOrdering Facility: [facility] Address: [address] [place] [address] Performed By: #### 1 988-5, 36698-6, 56537-2 ####[facility] [id number] [address] [address] [place] Magnesium SerPl-mCncon 08-07 Magnesium [Mass/Vol] 2.0 mg/dL Normal 1.7-2.3 [facility] Comment on above: Order Comment: Speci men Type: BLOOD SPECIMENOrdering Facility: [facility] Address: [address] [place], [place] [address] Performed By: #### 1 988-5, , 04909-5 ####[facility] [id number] [address] [address] [place] NUTRITIONon 08-08-2023 NUTRITION Normal [facility] Renal function 2000 panelon 08-08-2023 Albumin [Mass/Vol] 3.4 g/dL Low 3.9-4.9 [facility] Comment on above: Order Comment: Speci men Type: BLOOD SPECIMENOrdering Facility: [facility] Address: [address] [place] [address] Performed By: #### 1 988-5, , 47454-3 ####[facility] [id number] [place] [id number] [place] Anion gap [Moles/Vol] 9 mmol/L Normal 8-15 [facility] Comment on above: Order Comment: Speci men Type: BLOOD SPECIMENOrdering Facility: [facility] Address: [address] [place], [place] [address] Performed By: #### 1 988-5, , 79012-4 ####[facility] [id number] [place] [address] [place] Calcium [Mass/Vol] 8.7 mg/dL Normal 8.5-10.2 [facility] Comment on above: Order Comment: Speci men Type: BLOOD SPECIMENOrdering Facility: [facility] Address: [address] [place] [address] Performed By: #### 1 988-5, , ####[facility] [id number] [address] [address] [place] Chloride [Moles/Vol] 108 mmol/L High 98-107 [facility] Comment on above: Order Comment: Speci men Type: BLOOD SPECIMENOrdering Facility: [facility] Address: [address] [place] [address] Performed By: #### 1 988-5, , ####[facility] [id number] [place] [address] [place] CO2 [Moles/Vol] 22 mmol/L Normal 22-30 [facility] Comment on above: Order Comment: Speci men Type: BLOOD SPECIMENOrdering Facility: [facility] Address: [address] [place] [address] Performed By: #### 1 988-5, , ####[facility] [id number] [place] [address] [place] Creatinine [Mass/Vol] 0.69 mg/dL Normal 0.58-0.96 [facility] Comment on above: Order Comment: Speci men Type: BLOOD SPECIMENOrdering Facility: [facility] Address: [address] [place] [address] Performed By: #### 1 988-5, , ####[facility] [id number] [place] [address] [place] Creatinine and Glomerular filtration rate.predicted panel (S/P/Bld) 117 mL/min/1.73m??? Normal >=60 [facility] Comment on above: Order Comment: Speci men Type: BLOOD SPECIMENOrdering Facility: [facility] Address: [address] [place] [address] Result Comment: Jessica mated Glomerular Filtration Rate [...] actual GFR. Performed By: #### 1 988-5, 01941-9, 55221-0 ####[facility] [id number] [address] [address] [place] Glucose [Mass/Vol] 89 mg/dL Normal 74-99 [facility] Comment on above: Order Comment: Speci men Type: BLOOD SPECIMENOrdering Facility: [facility] Address: [address] [place] [address] Result Comment: The [place] [employer] (ADA) provides guidance for cutoff [...] Standards of Medical Care in Diabetes 2016, [place] [employer]. Diabetes Care. 2016.39(Suppl 1). Performed By: #### 1 988-5, , ####[facility] [id number] [address] [address] [place] Phosphate [Mass/Vol] 3.9 mg/dL Normal 2.7-4.8 [facility] Comment on above: Order Comment: Lyssai men Type: BLOOD SPECIMENOrdering Facility: [facility] Address: [address] [place] [address] Performed By: #### 1 988-5, 26410-2, 93110-4 ####[facility] [id number] [place] [address] [place] Potassium [Moles/Vol] 4.1 mmol/L Normal 3.7-5.1 [facility] Comment on above: Order Comment: Speci men Type: BLOOD SPECIMENOrdering Facility: [facility] Address: [address] [place] [address] Performed By: #### 1 988-5, 78379-6, 37513-6 ####[facility] [id number] [place] [address] [place] Sodium [Moles/Vol] 139 mmol/L Normal 136-144 [facility] Comment on above: Order Comment: Speci men Type: BLOOD SPECIMENOrdering Facility: [facility] Address: [address] [place] [address] Performed By: #### 1 988-5, 47366-5, 37712-6 ####[facility] [id number] [place] [address] [place] Urea nitrogen [Mass/Vol] 7 mg/dL Normal 7-21 [facility] Comment on above: Order Comment: Speci men Type: BLOOD SPECIMENOrdering Facility: [facility] Address: [address] [place] [address] Performed By: #### 1 988-5, 68333-4, 65774-6 ####[facility] [id number] [place] [address] [place] CBC W Auto Differential pane l (Bld)on 08-07-2023 Basophils (Bld) [#/Vol] 0.04 10*3/uL Normal <0.11 [facility] Comment on above: Order Comment: Speci men Type: BLOOD SPECIMENOrdering Facility: [facility] Address: [address] [place] [address] Performed By: #### 1 4196-0, 28675-0 ####[facility] [id number] [place] [address] [address] [place] Basophils/100 WBC (Bld) 0.7 % Normal [facility] Comment on above: Order Comment: Speci men Type: BLOOD SPECIMENOrdering Facility: [facility] Address: [address] [place] [address] Performed By: #### 1 4196-0, 82044-7 ####[facility] [id number] [place] [address] [place] Differential cell count method Nom (Bld) Auto Normal [facility] Comment on above: Order Comment: Speci men Type: BLOOD SPECIMENOrdering Facility: [facility] Address: [address] [place] [address] Performed By: #### 1 4196-0, 35017-7 ####[facility] [id number] [place] [address] [place] Eosinophils (Bld) [#/Vol] 0.10 10*3/uL Normal <0.46 [facility] Comment on above: Order Comment: Speci men Type: BLOOD SPECIMENOrdering Facility: [facility] Address: [address] [place] [address] Performed By: #### 1 4196-0, 07041-8 ####[facility] [id number] [place] [address] [place] Eosinophils/100 WBC (Bld) 1.8 % Normal [facility] Comment on above: Order Comment: Speci men Type: BLOOD SPECIMENOrdering Facility: [facility] Address: [address] [place] [address] Performed By: #### 1 4196-0, 22964-2 ####[facility] [id number] [place] [address] [place] Erythrocyte distribution width (RBC) [Ratio] 12.6 % Normal 11.5-15.0 [facility] Comment on above: Order Comment: Speci men Type: BLOOD SPECIMENOrdering Facility: [facility] Address: [address] [place] [address] Performed By: #### 1 4196-0, 26620-4 ####[facility] [id number] [place] [address] [place] Hematocrit (Bld) [Volume fraction] 30.4 % Low 36.0-46.0 [facility] Comment on above: Order Comment: Speci men Type: BLOOD SPECIMENOrdering Facility: [facility] Address: [address] [place] [address] Performed By: #### 1 4196-0, 41697-8 ####[facility] [id number] [place] [address] [place] Hemoglobin (Bld) [Mass/Vol] 10.1 g/dL Low 11.5-15.5 [facility] Comment on above: Order Comment: Speci men Type: BLOOD SPECIMENOrdering Facility: [facility] Address: [address] [place] [address] Performed By: #### 1 4196-0, 93206-3 ####[facility] [id number] [place] [address] [place] Immature granulocytes (Bld) [#/Vol] 10*3/uL Normal <0.10 [facility] Comment on above: Order Comment: Speci men Type: BLOOD SPECIMENOrdering Facility: [facility] Address: [address] [place] [address] Performed By: #### 1 4196-0, 64695-7 ####[facility] [id number] [place] [address] [place] Immature granulocytes/100 WBC (Bld) 0.2 % Normal [facility] Comment on above: Order Comment: Speci men Type: BLOOD SPECIMENOrdering Facility: [facility] Address: [address] [place] [address] Performed By: #### 1 4196-0, 33240-1 ####[facility] [id number] [place] [address] [place] Lymphocytes (Bld) [#/Vol] 1.13 10*3/uL Normal 1.00-4.00 [facility] Comment on above: Order Comment: Speci men Type: BLOOD SPECIMENOrdering Facility: [facility] Address: [address] [place] [address] Performed By: #### 1 4196-0, 36714-8 ####[facility] [id number] [place] [address] [place] Lymphocytes/100 WBC (Bld) 20.8 % Normal [facility] Comment on above: Order Comment: Speci men Type: BLOOD SPECIMENOrdering Facility: [facility] Address: [address] [place] [address] Performed By: #### 1 4196-0, 06023-6 ####[facility] [id number] [place] [address] [place] MCH (RBC) [Entitic mass] 29.5 pg Normal 26.0-34.0 [facility] Comment on above: Order Comment: Speci men Type: BLOOD SPECIMENOrdering Facility: [facility] Address: [address] [place] [address] Performed By: #### 1 4196-0, 16769-6 ####[facility] [id number] [place] [address] [place] MCHC (RBC) [Mass/Vol] 33.2 g/dL Normal 30.5-36.0 [facility] Comment on above: Order Comment: Speci men Type: BLOOD SPECIMENOrdering Facility: [facility] Address: [address] [place] [address] Performed By: #### 1 4196-0, 47829-9 ####[facility] [id number] [place] [address] [place] MCV (RBC) [Entitic vol] 88.9 fL Normal 80.0-100.0 [facility] Comment on above: Order Comment: Speci men Type: BLOOD SPECIMENOrdering Facility: [facility] Address: [address] [place] [address] Performed By: #### 1 4196-0, 01088-6 ####[facility] [id number] [place] [address] [place] Monocytes (Bld) [#/Vol] 0.38 10*3/uL Normal <0.87 [facility] Comment on above: Order Comment: Speci men Type: BLOOD SPECIMENOrdering Facility: [facility] Address: [address] [place] [address] Performed By: #### 1 4196-0, 08028-7 ####[facility] [id number] [place] [address] [place] Monocytes/100 WBC (Bld) 7.0 % Normal [facility] Comment on above: Order Comment: Speci men Type: BLOOD SPECIMENOrdering Facility: [facility] Address: [address] [place] [address] Performed By: #### 1 4196-0, 86736-5 ####[facility] [id number] [place] [address] [place] Neutrophils (Bld) [#/Vol] 3.78 10*3/uL Normal 1.45-7.50 [facility] Comment on above: Order Comment: Speci men Type: BLOOD SPECIMENOrdering Facility: [facility] Address: [address] [place] [address] Performed By: #### 1 4196-0, 99299-2 ####[facility] [id number] [place] [address] [place] Neutrophils/100 WBC (Bld) 69.5 % Normal [facility] Comment on above: Order Comment: Speci men Type: BLOOD SPECIMENOrdering Facility: [facility] Address: [address] [place] [address] Performed By: #### 1 4196-0, 19730-3 ####[facility] [id number] [place] [address] [place] Nucleated RBC (Bld) [#/Vol] 10*3/uL Normal <0.01 [facility] Comment on above: Order Comment: Speci men Type: BLOOD SPECIMENOrdering Facility: [facility] Address: [address] [place] [address] Performed By: #### 1 4196-0, 50447-9 ####[facility] [id number] [place] [address] [place] Nucleated RBC/100 WBC (Bld) [Ratio] 0.0 /100 WBC Normal [facility] Comment on above: Order Comment: Speci men Type: BLOOD SPECIMENOrdering Facility: [facility] Address: [address] [place] [address] Performed By: #### 1 4196-0, 02162-5 ####[facility] [id number] [place] [address] [place] Platelet mean volume (Bld) [Entitic vol] 10.0 fL Normal 9.0-12.7 [facility] Comment on above: Order Comment: Speci men Type: BLOOD SPECIMENOrdering Facility: [facility] Address: [address] [place] [address] Performed By: #### 1 4196-0, 28706-8 ####[facility] [id number] [place] [address] [place] Platelets (Bld) [#/Vol] 271 10*3/uL Normal 150-400 [facility] Comment on above: Order Comment: Speci men Type: BLOOD SPECIMENOrdering Facility: [facility] Address: [address] [place] [address] Performed By: #### 1 4196-0, 14841-5 ####[facility] [id number] [place] [address] [place] RBC (Bld) [#/Vol] 3.42 10*6/uL Low 3.90-5.20 [facility] Comment on above: Order Comment: Speci men Type: BLOOD SPECIMENOrdering Facility: [facility] Address: [address] [place] [address] Performed By: #### 1 4196-0, 16949-9 ####[facility] [id number] [place] [address] [place] WBC (Bld) [#/Vol] 5.44 10*3/uL Normal 3.70-11.00 [facility] Comment on above: Order Comment: Speci men Type: BLOOD SPECIMENOrdering Facility: [facility] Address: [address] [place] [address] Performed By: #### 1 4196-0, 42202-0 ####[facility] [id number] [place] [address] [place] Comprehensive metabolic 2000 panelon 08-07-2023 Albumin [Mass/Vol] 3.7 g/dL Low 3.9-4.9 [facility] Comment on above: Order Comment: Speci men Type: BLOOD SPECIMENOrdering Facility: [facility] Address: [address] [place] [address] Performed By: #### 1 9123-9, 3040-3, 43243-1 ####[facility] [id number] [place] [address] [place] ALP [Catalytic activity/Vol] 58 U/L Normal 34-123 [facility] Comment on above: Order Comment: Speci men Type: BLOOD SPECIMENOrdering Facility: [facility] Address: [address] [place] [address] Performed By: #### 1 9123-9, 3040-3, 99947-7 ####[facility] [id number] [place] [address] [place] ALT [Catalytic activity/Vol] 16 U/L Normal 7-38 [facility] Comment on above: Order Comment: Speci men Type: BLOOD SPECIMENOrdering Facility: [facility] Address: [address] [place] [address] Performed By: #### 1 9123-9, 0-3, 99191-1 ####[facility] [id number] [place] [address] [place] Anion gap [Moles/Vol] 8 mmol/L Normal 8-15 [facility] Comment on above: Order Comment: Speci men Type: BLOOD SPECIMENOrdering Facility: [facility] Address: [address] [place] [address] Performed By: #### 1 9123-9, 3039-3, 27878-2 ####[facility] [id number] [place] [address] [place] AST [Catalytic activity/Vol] 18 U/L Normal 13-35 [facility] Comment on above: Order Comment: Speci men Type: BLOOD SPECIMENOrdering Facility: [facility] Address: [address] [place] [address] Performed By: #### 1 9123-9, 3040-3, 84996-3 ####[facility] [id number] [place] [address] [place] Bilirubin [Mass/Vol] 0.2 mg/dL Normal 0.2-1.3 [facility] Comment on above: Order Comment: Speci men Type: BLOOD SPECIMENOrdering Facility: [facility] Address: [address] [place] [address] Performed By: #### 1 9123-9, 3040-3, ####[facility] [id number] [address] [address] [place] Calcium [Mass/Vol] 8.0 mg/dL Low 8.5-10.2 [facility] Comment on above: Order Comment: Speci men Type: BLOOD SPECIMENOrdering Facility: [facility] Address: [address] [place] [address] Performed By: #### 1 9123-9, 3, ####[facility] [id number] [place] [address] [place] Chloride [Moles/Vol] 108 mmol/L High 98-107 [facility] Comment on above: Order Comment: Speci men Type: BLOOD SPECIMENOrdering Facility: [facility] Address: [address] [place] [address] Performed By: #### 1 9123-9, 3, ####[facility] [id number] [place] [address] [place] CO2 [Moles/Vol] 23 mmol/L Normal 22-30 [facility] Comment on above: Order Comment: Speci men Type: BLOOD SPECIMENOrdering Facility: [facility] Address: [address] [place] [address] Performed By: #### 1 9123-9, 3, ####[facility] [id number] [address] [address] [place] Creatinine [Mass/Vol] 0.60 mg/dL Normal 0.58-0.96 [facility] Comment on above: Order Comment: Speci men Type: BLOOD SPECIMENOrdering Facility: [facility] Address: [address] [place], [place] [address] Performed By: #### 1 9123-9, 3, ####[facility] [id number] [address] [place] Creatinine and Glomerular filtration rate.predicted panel (S/P/Bld) 121 mL/min/1.73m??? Normal >=60 [facility] Comment on above: Order Comment: Geraldo marrero Type: BLOOD SPECIMENOrdering Facility: [facility] Address: [address] [place] [address] Result Comment: Jessica mated Glomerular Filtration Rate [...] GFR. Performed By: #### 1 9123-9, 3040-3, 36308-2 ####[facility] [id number] [place] [address] [place] Glucose [Mass/Vol] 89 mg/dL Normal 74-99 [facility] Comment on above: Order Comment: Geraldo marrero Type: BLOOD SPECIMENOrdering Facility: [facility] Address: [address] [place] [address] Result Comment: The [place] [employer] (ADA) provides guidance for cutoff [...] Standards of Medical Care in Diabetes 2016, [place] [employer]. Diabetes Care. 2016.39(Suppl 1). Performed By: #### 1 9123-9, 3040-3, 97352-9 ####[facility] [id number] [place] [address] [place] Potassium [Moles/Vol] 3.6 mmol/L Low 3.7-5.1 [facility] Comment on above: Order Comment: Speci men Type: BLOOD SPECIMENOrdering Facility: [facility] Address: [address] [place] [address] Performed By: #### 1 9123-9, 3040-3, 32233-4 ####[facility] [id number] [place] [address] [place] Protein [Mass/Vol] 5.8 g/dL Low 6.3-8.0 [facility] Comment on above: Order Comment: Speci men Type: BLOOD SPECIMENOrdering Facility: [facility] Address: [address] [place] [address] Performed By: #### 1 9123-9, 3040-3, 99696-0 ####[facility] [id number] [place] [address] [place] Sodium [Moles/Vol] 139 mmol/L Normal 136-144 [facility] Comment on above: Order Comment: Speci men Type: BLOOD SPECIMENOrdering Facility: [facility] Address: [address] [place] [address] Performed By: #### 1 9123-9, 3040-3, 83528-7 ####[facility] [id number] [place] [address] [place] Urea nitrogen [Mass/Vol] 10 mg/dL Normal 7-21 [facility] Comment on above: Order Comment: Speci men Type: BLOOD SPECIMENOrdering Facility: [facility] Address: [address] [place] [address] Performed By: #### 1 9123-9, 3040-3, 14947-0 ####[facility] [id number] [place] [address] [place] TDR47el 08-07-2023 ECG01 Normal [facility] ED NOTEon 08-07-2023 ED NOTE HNO ID: [id number] Author: PASTORA MADERA RN Service: ? Author Type: Registered Nurse Type: ED Notes Filed: 08/07/2023 17:39 Note Text: Report given to H80 Normal [facility] ED NOTE HNO ID: [id number] Author: PASTORA MADERA RN Service: ? Author Type: Registered Nurse Type: ED Notes Filed: 08/07/2023 17:07 Note Text: Report attempted x1. Call back # given Normal [facility] ED NOTE HNO ID: [id number] Author: ESTEFANI WHITE CT Service: Emergency Medicine Author Type: Clinical Shoulder Sawyer Type: ED Notes Filed: 08/07/2023 09:32 Note Text: EKG complete Normal [facility] ED PROV NOTEon 08-07-2023 ED PROV NOTE Normal [facility] HISTORY PHYSICALon HISTORY PHYSICAL Normal [facility] Lactate (Bld) [Moles/Vol]on 08-07-2023 Lactate [Moles/Vol] 0.8 mmol/L Normal 0.5-2.2 [facility] Comment on above: Order Comment: Speci men Type: BLOOD SPECIMENOrdering Facility: [facility] Address: [address] [place] [address] Performed By: #### 3 2693-4 ####[facility] [id number] [place] [address] [place] Lipase SerPl-cCncon 08-07-19 24 Lipase [Catalytic activity/Vol] 45 U/L Normal 16-61 [facility] Comment on above: Order Comment: Speci men Type: BLOOD SPECIMENOrdering Facility: [facility] Address: [address] [place] [address] Performed By: #### 1 9123-9, 3040-3, 62969-6 ####[facility] [id number] [place] [address] [place] Magnesium SerPl-mCncon 08-06 Magnesium [Mass/Vol] 1.9 mg/dL Normal 1.7-2.3 [facility] Comment on above: Order Comment: Speci men Type: BLOOD SPECIMENOrdering Facility: [facility] Address: [address] [place] [address] Performed By: #### 1 9123-9, 3040-3, 36339-3 ####[facility] [id number] [place] [address] [place] Retics #on 08-07-2023 Reticulocytes (Bld) [#/Vol] 0.34370 10*3/uL Normal 0.018-0.100 [facility] Comment on above: Order Comment: Speci men Type: BLOOD SPECIMENOrdering Facility: [facility] Address: [address] [place] [address] Performed By: #### 1 4196-0, 32364-2 ####[facility] [id number] [place] [address] [place] Reticulocytes (Bld) [#/Vol]o n 08-07-2023 Reticulocytes/100 RBC (Bld) 1.6 % Normal 0.4-2.0 [facility] Comment on above: Order Comment: Speci men Type: BLOOD SPECIMENOrdering Facility: [facility] Address: [address] [place] [address] Performed By: #### 1 4196-0, 17035-0 ####[facility] [id number] [place] [address] [place] STREPTOCOCCUS PNEUMONIAE ANT IGEN URINEon 08-07-2023 STREPTOCOCCUS PNEUMONIAE ANTIGEN URINE Normal [facility] Comment on above: Performed By: #### S PNAG ####[facility] [id number] [place] [address] [place] XR CHEST 2V FRONTAL/LATon XR CHEST 2V FRONTAL/LAT Normal [facility] CASE MANAGEMon 08-06-2023 CASE MANAGEM Normal [facility] CNDSon 08-06-2023 CNDS Normal [facility] CONSULT PROGon 08-06-2023 CONSULT PROG [facility] Magnesium SerPl-mCncon 08-05 Magnesium [Mass/Vol] 1.8 mg/dL Normal 1.7-2.3 [facility] Comment on above: Order Comment: Speci men Type: BLOOD SPECIMENOrdering Facility: [facility] Address: [address] [place] [address] Performed By: #### 1 9123-9, 12722-1 ####[facility]ORATORYCLIA [id number] [place] [address] [place] NURSING PROGon 08-06-2023 NURSING PROG Normal [facility] NUTRITIONon 08-06-2023 NUTRITION Normal [facility] Renal function 2000 panelon 08-06-2023 Albumin [Mass/Vol] 3.5 g/dL Low 3.9-4.9 [facility] Comment on above: Order Comment: Speci men Type: BLOOD SPECIMENOrdering Facility: [facility] Address: [address] [place] [address] Performed By: #### 1 9123-9, 80617-6 ####[facility] LABORATORYCLIA [id number] [place] [address] [place] Anion gap [Moles/Vol] 10 mmol/L Normal 8-15 [facility] Comment on above: Order Comment: Speci men Type: BLOOD SPECIMENOrdering Facility: [facility] Address: [address] [place] [address] Performed By: #### 1 9123-9, 30652-7 ####[facility] LABORATORYCLIA [id number] [place] [address] [place] Calcium [Mass/Vol] 8.2 mg/dL Low 8.5-10.2 [facility] Comment on above: Order Comment: Speci men Type: BLOOD SPECIMENOrdering Facility: [facility] Address: [address] [place] [address] Performed By: #### 1 9123-9, 84406-7 ####[facility] LABORATORYCLIA [id number] [place] [address] [place] Chloride [Moles/Vol] 106 mmol/L Normal 98-107 [facility] Comment on above: Order Comment: Speci men Type: BLOOD SPECIMENOrdering Facility: [facility] Address: [address] [place] [address] Performed By: #### 1 9123-9, 79297-3 ####[facility] LABORATORYCLIA [id number] [place] [address] [place] CO2 [Moles/Vol] 23 mmol/L Normal 22-30 [facility] Comment on above: Order Comment: Speci men Type: BLOOD SPECIMENOrdering Facility: [facility] Address: [address] [place] [address] Performed By: #### 1 9123-9, 23334-1 ####[facility]ITAL[facility]IA [id number] [facility] [address] [place] Creatinine [Mass/Vol] 0.71 mg/dL Normal 0.58-0.96 [facility] Comment on above: Order Comment: Speci men Type: BLOOD SPECIMENOrdering Facility: [facility] Address: [address] [place] [address] Performed By: #### 1 9123-9, 85211-6 ####[facility] LABORATORYCLIA [id number] [facility] [address] [place] Creatinine and Glomerular filtration rate.predicted panel (S/P/Bld) 115 mL/min/1.73m??? Normal >=60 [facility] Comment on above: Order Comment: Speci men Type: BLOOD SPECIMENOrdering Facility: [facility] Address: [address] [place] [address] Result Comment: Jessica mated Glomerular Filtration Rate [...] actual GFR. Performed By: #### 1 9123-9, 54129-9 ####[facility] LABORATORYCLIA [id number] [place] [address] [place] Glucose [Mass/Vol] 106 mg/dL High 74-99 [facility] Comment on above: Order Comment: [facility] Type: BLOOD SPECIMENOrdering Facility: [facility] Address: [address] [place] [address] Result Comment: The [place] [employer] (ADA) provides guidance for cutoff [...] Standards of Medical Care in Diabetes 2016, [place] [employer]. Diabetes Care. 2016.39(Suppl 1). Performed By: #### 1 9123-9, 82087-3 ####[facility] LABORATORYCLIA [id number] [place] [address] [place] Phosphate [Mass/Vol] 4.2 mg/dL Normal 2.7-4.8 [facility] Comment on above: Order Comment: Geraldo [facility] Type: BLOOD SPECIMENOrdering Facility: [facility] Address: [address] [place] [address] Performed By: #### 1 9123-9, 73709-0 ####[facility] LABORATORYCLIA [id number] [place] [address] [place] Potassium [Moles/Vol] 3.8 mmol/L Normal 3.7-5.1 [facility] Comment on above: Order Comment: Speci men Type: BLOOD SPECIMENOrdering Facility: [facility] Address: [address] [place] [id number] Performed By: #### 1 9123-9, 07482-1 ####[facility] LABORATORYCLIA [id number] [facility] [address] [place] Sodium [Moles/Vol] 139 mmol/L Normal 136-144 [facility] Comment on above: Order Comment: Speci men Type: BLOOD SPECIMENOrdering Facility: [facility] Address: [address] [place] [address] Performed By: #### 1 9123-9, 28745-5 ####[facility] LABORATORYCLIA [id number] [facility] [address] [place] Urea nitrogen [Mass/Vol] 12 mg/dL Normal 7-21 [facility] Comment on above: Order Comment: Speci men Type: BLOOD SPECIMENOrdering Facility: [facility] Address: [address] [place] [address] Performed By: #### 1 9123-9, 72556-6 ####[facility] LABORATORYCLIA [id number] [facility] [address] [place] ALLIED HEALTHon 08-05-2023 ALLIED HEALTH Normal [facility] CASE MGT [facility]IT [facility] 2023 [facility] CONSULTon 08-05-2023 CONSULT Normal [facility] NUTRITIONon 08-05-2023 NUTRITION Normal [facility] CBC W Auto Differential pane l (Bld)on 08-04-2023 Basophils (Bld) [#/Vol] 0.04 10*3/uL Normal <0.11 [facility] Comment on above: Order Comment: Speci men Type: BLOOD SPECIMENOrdering Facility: [facility] Address: [address] [place] [address] Performed By: #### 5 7021-8 ####[facility] LABORATORYCLIA [id number] [facility] [address] [place] Basophils/100 WBC (Bld) 0.5 % Normal [facility] Comment on above: Order Comment: Speci men Type: BLOOD SPECIMENOrdering Facility: [facility] Address: [address] [place] [address] Performed By: #### 5 7021-8 ####[facility] HOSPITALIA [id number] [place] [address] [place] Differential cell count method Nom (Bld) Auto Normal [facility] Comment on above: Order Comment: Speci men Type: BLOOD SPECIMENOrdering Facility: [facility] Address: [address] [place] [address] Performed By: #### 5 7021-8 ####[facility] HOSPITALIA [id number] [place] [address] [place] Eosinophils (Bld) [#/Vol] 0.05 10*3/uL Normal <0.46 [facility] Comment on above: Order Comment: Speci men Type: BLOOD SPECIMENOrdering Facility: [facility] Address: [address] [place] [address] Performed By: #### 5 7021-8 ####[facility] HOSPITALIA [id number] [place] [address] [place] Eosinophils/100 WBC (Bld) 0.6 % Normal [facility] Comment on above: Order Comment: Speci men Type: BLOOD SPECIMENOrdering Facility: [facility] Address: [address] [place] [address] Performed By: #### 5 7021-8 ####[facility] HOSPITALIA [id number] [place] [address] [place] Erythrocyte distribution width (RBC) [Ratio] 12.8 % Normal 11.5-15.0 [facility] Comment on above: Order Comment: Speci men Type: BLOOD SPECIMENOrdering Facility: [facility] Address: [address] [place] [address] Performed By: #### 5 7021-8 ####[facility] LABORATORYIA [id number] [place] [address] [place] Hematocrit (Bld) [Volume fraction] 36.2 % Normal 36.0-46.0 [facility] Comment on above: Order Comment: Speci men Type: BLOOD SPECIMENOrdering Facility: [facility] Address: [address] [place] [address] Performed By: #### 5 7021-8 ####[facility]ORATORYCLIA [id number] [place] [address] [place] Hemoglobin (Bld) [Mass/Vol] 12.0 g/dL Normal 11.5-15.5 [facility] Comment on above: Order Comment: Speci men Type: BLOOD SPECIMENOrdering Facility: [facility] Address: [address] [place] [address] Performed By: #### 5 7021-8 ####[facility]ORATORYCLIA [id number] [place] [address] [place] Immature granulocytes (Bld) [#/Vol] 10*3/uL Normal <0.10 [facility] Comment on above: Order Comment: Speci men Type: BLOOD SPECIMENOrdering Facility: [facility] Address: [address] [place] [address] Performed By: #### 5 7021-8 ####[facility] LABORATORYIA [id number] [place] [address] [place] Immature granulocytes/100 WBC (Bld) 0.2 % Normal [facility] Comment on above: Order Comment: Speci men Type: BLOOD SPECIMENOrdering Facility: [facility] Address: [address] [place] [address] Performed By: #### 5 7021-8 ####[facility] LABORATORYCLIA [id number] [place] [id number] [place] Lymphocytes (Bld) [#/Vol] 1.30 10*3/uL Normal 1.00-4.00 [facility] Comment on above: Order Comment: Speci men Type: BLOOD SPECIMENOrdering Facility: [facility] Address: [address] [place] [address] Performed By: #### 5 7021-8 ####[facility] LABORATORYIA [id number] [place] [address] [place] Lymphocytes/100 WBC (Bld) 14.9 % Normal [facility] Comment on above: Order Comment: Speci men Type: BLOOD SPECIMENOrdering Facility: [facility] Address: [address] [place] [address] Performed By: #### 5 7021-8 ####[facility] H[facility]ITALIA [id number] [address] [place] MCH (RBC) [Entitic mass] 30.1 pg Normal 26.0-34.0 [facility] Comment on above: Order Comment: Speci men Type: BLOOD SPECIMENOrdering Facility: [facility] Address: [address] [place] [address] Performed By: #### 5 7021-8 ####[facility] [id number] [place] [address] [place] MCHC (RBC) [Mass/Vol] 33.1 g/dL Normal 30.5-36.0 [facility] Comment on above: Order Comment: Speci men Type: BLOOD SPECIMENOrdering Facility: [facility] Address: [address] [place] [address] Performed By: #### 5 7021-8 ####[facility] [id number] [address] [place] MCV (RBC) [Entitic vol] 90.7 fL Normal 80.0-100.0 [facility] Comment on above: Order Comment: Speci men Type: BLOOD SPECIMENOrdering Facility: [facility] Address: [address] [place] [address] Performed By: #### 5 7021-8 ####[facility] [id number] [address] [place] Monocytes (Bld) [#/Vol] 0.39 10*3/uL Normal <0.87 [facility] Comment on above: Order Comment: Speci men Type: BLOOD SPECIMENOrdering Facility: [facility] Address: [address] [place] [address] Performed By: #### 5 7021-8 ####[facility] LABORATORYCLIA [id number] [facility] [place] [address] [place] Monocytes/100 WBC (Bld) 4.5 % Normal [facility] Comment on above: Order Comment: Speci men Type: BLOOD SPECIMENOrdering Facility: [facility] Address: [address] [place] [address] Performed By: #### 5 7021-8 ####[facility]ORATORYCLIA [id number] [place] [address] [place] Neutrophils (Bld) [#/Vol] 6.91 10*3/uL Normal 1.45-7.50 [facility] Comment on above: Order Comment: Speci men Type: BLOOD SPECIMENOrdering Facility: [facility] Address: [address] [place] [address] Performed By: #### 5 7021-8 ####[facility] LABORATORYCLIA [id number] [place] [id number] [place] Neutrophils/100 WBC (Bld) 79.3 % Normal [facility] Comment on above: Order Comment: Speci men Type: BLOOD SPECIMENOrdering Facility: [facility] Address: [address] [place] [address] Performed By: #### 5 7021-8 ####[facility] LABORATORYCLIA [id number] [place] [place] [address] [place] Nucleated RBC (Bld) [#/Vol] 10*3/uL Normal <0.01 [facility] Comment on above: Order Comment: Speci men Type: BLOOD SPECIMENOrdering Facility: [facility] Address: [address] [place] [address] Performed By: #### 5 7021-8 ####[facility] LABORATORYCLIA [id number] [facility] [address] [place] Nucleated RBC/100 WBC (Bld) [Ratio] 0.0 /100 WBC Normal [facility] Comment on above: Order Comment: Speci men Type: BLOOD SPECIMENOrdering Facility: [facility] Address: [address] [place] [address] Performed By: #### 5 7021-8 ####[facility] LABORATORYCLIA [id number] [place] [address] [place] Platelet mean volume (Bld) [Entitic vol] 10.5 fL Normal 9.0-12.7 [facility] Comment on above: Order Comment: Speci men Type: BLOOD SPECIMENOrdering Facility: [facility] Address: [address] [place] [address] Performed By: #### 5 7021-8 ####[facility] LABORATORYCLIA [id number] [place] [address] [place] Platelets (Bld) [#/Vol] 328 10*3/uL Normal 150-400 [facility] Comment on above: Order Comment: Speci men Type: BLOOD SPECIMENOrdering Facility: [facility] Address: [address] [place] [address] Performed By: #### 5 7021-8 ####[facility] LABORATORYCLIA [id number] [place] [address] [place] RBC (Bld) [#/Vol] 3.99 10*6/uL Normal 3.90-5.20 [facility] Comment on above: Order Comment: Speci men Type: BLOOD SPECIMENOrdering Facility: [facility] Address: [address] [place] [address] Performed By: #### 5 7021-8 ####[facility] LABORATORYCLIA [id number] [place] [address] [place] WBC (Bld) [#/Vol] 8.71 10*3/uL Normal 3.70-11.00 [facility] Comment on above: Order Comment: Speci men Type: BLOOD SPECIMENOrdering Facility: [facility] Address: [address] [place] [address] Performed By: #### 5 7021-8 ####[facility] HOSPITALIA [id number] [facility] [address] [place] CNOVon 08-04-2023 CNOV Normal [facility] CNPNon 08-04-2023 CNPN Normal [facility] CONSULTon 08-04-2023 CONSULT Normal [facility] CT ABD/PEL W IVCONon 024 CT ABD/PEL W IVCON Normal [facility] BRAIN WO IVCONon 08-04-[address] BRAIN WO IVCON Normal [facility] Comprehensive metabolic 2000 panelon 08-04-2023 Albumin [Mass/Vol] 3.8 g/dL Low 3.9-4.9 [facility] Comment on above: Order Comment: Speci men Type: BLOOD SPECIMENOrdering Facility: [facility] Address: [address] [place] [address] Performed By: #### 2 4323-8, , 0-3 ####[facility] HOSPITALIA [id number] [facility] [address] [place] ALP [Catalytic activity/Vol] 76 U/L Normal 34-123 [facility] Comment on above: Order Comment: Speci men Type: BLOOD SPECIMENOrdering Facility: [facility] Address: [address] [place] [address] Performed By: #### 2 4323-8, 81306-3, 0-3 ####[facility] HOSPITALIA [id number] [place] [address] [place] ALT [Catalytic activity/Vol] Normal [facility] Comment on above: Order Comment: Speci men Type: BLOOD SPECIMENOrdering Facility: [facility] Address: [address] [place] [address] Result Comment: Unab le to assay due to interference from hemolysis. Suggest reorder as clinically indicated. Performed By: #### 2 4323-8, 45674-7, 0-3 ####[facility] LABORATORYIA [id number] [place] [address] [place] Anion gap [Moles/Vol] 10 mmol/L Normal 8-15 [facility] Comment on above: Order Comment: Speci men Type: BLOOD SPECIMENOrdering Facility: [facility] Address: [address] [place] [address] Performed By: #### 2 4323-8, , 3 ####[facility]ORATORYCLIA [id number] [place] [address] [place] AST [Catalytic activity/Vol] Normal [facility] Comment on above: Order Comment: Speci men Type: BLOOD SPECIMENOrdering Facility: [facility] Address: [address] [place] [address] Result Comment: Unab le to assay due to interference from hemolysis. Suggest reorder as clinically indicated. Performed By: #### 2 4323-8, , 3 ####[facility]ORATORYCLIA [id number] [place] [address] [place] Bilirubin [Mass/Vol] 0.3 mg/dL Normal 0.2-1.3 [facility] Comment on above: Order Comment: Speci men Type: BLOOD SPECIMENOrdering Facility: [facility] Address: [address] [place] [address] Performed By: #### 2 4323-8, , 3 ####[facility] LABORATORYCLIA [id number] [place] [address] [place] Calcium [Mass/Vol] 8.7 mg/dL Normal 8.5-10.2 [facility] Comment on above: Order Comment: Speci men Type: BLOOD SPECIMENOrdering Facility: [facility] Address: [address] [place] [address] Performed By: #### 2 4323-8, , 3 ####[facility]ORATORYCLIA [id number] [place] [address] [place] Chloride [Moles/Vol] 106 mmol/L Normal 98-107 [facility] Comment on above: Order Comment: Speci men Type: BLOOD SPECIMENOrdering Facility: [facility] Address: [address] [place], [place] [address] Performed By: #### 2 4323-8, 09985-6, 0-3 ####[facility]PITALCLIA [id number] [place] [address] [place] CO2 [Moles/Vol] 23 mmol/L Normal 22-30 [facility] Comment on above: Order Comment: Speci men Type: BLOOD SPECIMENOrdering Facility: [facility] Address: [address] [place] [address] Performed By: #### 2 4323-8, , 3 ####[facility] LABORATORYIA [id number] [place] [address] [place] Creatinine [Mass/Vol] 0.71 mg/dL Normal 0.58-0.96 [facility] Comment on above: Order Comment: Speci men Type: BLOOD SPECIMENOrdering Facility: [facility] Address: [address] [place] [address] Performed By: #### 2 4323-8, , 3 ####[facility] HOSPITALIA [id number] [address] [place] Creatinine and Glomerular filtration rate.predicted panel (S/P/Bld) 115 mL/min/1.73m??? Normal >=60 [facility] Comment on above: Order Comment: Speci men Type: BLOOD SPECIMENOrdering Facility: [facility] Address: [address] [place] [address] Result Comment: Jessica mated Glomerular Filtration Rate [...] actual GFR. Performed By: #### 2 4323-8, 34573-0, 0-3 ####[facility]ORATORYCLIA [id number] [place] [address] [place] Glucose [Mass/Vol] 82 mg/dL Normal 74-99 [facility] Comment on above: Order Comment: Speci men Type: BLOOD SPECIMENOrdering Facility: [facility] Address: [address] [place] [address] Result Comment: The [place] Diabetes Association (ADA) provides guidance for cutoff [...] Standards of Medical Care in Diabetes 2016, [place] [employer]. Diabetes Care. 2016.39(Suppl 1). Performed By: #### 2 4323-8, 03519-8, 3039-3 ####[facility] LABORATORYIA [id number] [place] [address] [place] Potassium [Moles/Vol] 4.3 mmol/L Normal 3.7-5.1 [facility] Comment on above: Order Comment: Lyssai men Type: BLOOD SPECIMENOrdering Facility: [facility] Address: [address] [place] [address] Performed By: #### 2 4323-8, , 3039-3 ####[facility] LABORATORYIA [id number] [place] [address] [place] Protein [Mass/Vol] 6.8 g/dL Normal 6.3-8.0 [facility] Comment on above: Order Comment: Speci men Type: BLOOD SPECIMENOrdering Facility: [facility] Address: [address] [place], [place] [address] Performed By: #### 2 4323-8, 91289-0, 3039-3 ####[facility] LABORATORYCLIA [id number] [facility] [address] [place] Sodium [Moles/Vol] 139 mmol/L Normal 136-144 [facility] Comment on above: Order Comment: Speci men Type: BLOOD SPECIMENOrdering Facility: [facility] Address: [address] [place] [address] Performed By: #### 2 4323-8, 62924-9, 3040-3 ####[facility]ORATORYCLIA [id number] [place] [address] [place] Urea nitrogen [Mass/Vol] 6 mg/dL Low 7- [facility] Comment on above: Order Comment: Speci men Type: BLOOD SPECIMENOrdering Facility: [facility] Address: [address] [place] [address] Performed By: #### 2 4323-8, 69762-3, 3040-3 ####[facility]ORATORYCLIA [id number] [place] [address] [place] ECG COMPLETEon 08-04-2023 ECG COMPLETE Normal [facility] ED NOTEon 08-04-2023 ED NOTE HNO ID: [id number] Author: ANAM NAILS RN Service: Emergency Medicine Author Type: Registered Nurse Type: ED Notes Filed: 08/04/2023 14:44 Note Text: Pt remains unable to provide urine sample at this time. [facility] ED NOTE HNO ID: [id number] Author: ANAM NAILS RN Service: Emergency Medicine Author Type: Registered Nurse Type: ED Notes Filed: 08/04/2023 14:43 Note Text: Pt unable to provide urine sample at this time. Normal [facility] ED NOTE HNO ID: [id number] Author: CORIE BILLINGSLEY, Efrem Service: ? Author Type: Bulb Assembler and Shoulder Sawyer Type: ED Notes Filed: 08/04/2023 09:52 Note Text: Pt also states she fell yesterday and LOC noted. Pt had had multiple episodes of diarrhea as well. Normal [facility] ED PROV NOTEon 08-04-2023 ED PROV NOTE Normal [facility] HIGH SENSITIVITY TROPONIN T (INITIAL)on 08-04-2023 Troponin T.cardiac High sensitivity method [Mass/Vol] <6 Normal <12 [facility] Comment on above: Order Comment: Geraldo marrero Type: BLOOD SPECIMENOrdering Facility: [facility] Address: [address] [place] [address] Result Comment: When assessing risk for acute [...] 30 day MACE. Performed By: #### L [id number] ####[facility] LABORATORYCLIA [id number] [address] STATES OF [facility] HIGH SENSITIVITY TROPONIN T (SECOND)on 08-04-2023 Troponin T.cardiac High sensitivity method [Mass/Vol] <6 Normal <12 [facility] Comment on above: Order Comment: Geraldo marrero Type: BLOOD SPECIMENOrdering Facility: [facility] Address: [address] [place] [address] Result Comment: When assessing risk for acute [...] 30 day MACE. Performed By: #### L [id number] ####[facility] LABORATORYCLIA [id number] [place] [address] [place] HISTORY PHYSICALon 4 HISTORY PHYSICAL Normal [facility] pital Lipase SerPl-cCncon 08-04-19 24 Lipase [Catalytic activity/Vol] 52 U/L Normal 16-61 [facility] Comment on above: Order Comment: Geraldo marrero Type: BLOOD SPECIMENOrdering Facility: [facility] Address: [address] [place] [address] Performed By: #### 2 4323-8, 71378-1, 3040-3 ####[facility] MEDICAL CENTERIA [id number] [place] [address] [place] Magnesium SerPl-mCncon 08-03 Magnesium [Mass/Vol] 1.9 mg/dL Normal 1.7-2.3 [facility] Comment on above: Order Comment: Speci men Type: BLOOD SPECIMENOrdering Facility: [facility] Address: [address] [place] [address] Performed By: #### 2 4323-8, 53954-9, 3040-3 ####[facility] HOSPITALIA [id number] [place] [address] [place] SEPSIS LACTATE W/ REFLEX (IN ITIAL)on 08-04-2023 Lactate [Moles/Vol] 1.5 mmol/L Normal 0.0-2.0 [facility] Comment on above: Order Comment: Speci men Type: BLOOD SPECIMENOrdering Facility: [facility] Address: [address] [place] [address] Performed By: #### S LACTR ####[facility] [id number] [place] [address] [place] Urinalysis complete panel (U )on 08-04-2023 Bilirubin Ql (U) Negative Normal Negative [facility] Comment on above: Order Comment: Speci men Type: URINE SPECIMENOrdering Facility: [facility] Address: [address] [place] [address] Performed By: #### 2 4356-8 ####[facility] [id number] [place] [address] [place] Clarity (Unsp spec) Clear Normal Clear [facility] Comment on above: Order Comment: Speci men Type: URINE SPECIMENOrdering Facility: [facility] Address: [address] [place] [address] Performed By: #### 2 4356-8 ####[facility] [id number] [place] [address] [place] Color (U) Yellow Normal Yellow [facility] Comment on above: Order Comment: Speci men Type: URINE SPECIMENOrdering Facility: [facility] Address: [address] [place] [address] Performed By: #### 2 4356-8 ####[facility] HOSPITALIA [id number] [place] [address] [place] Glucose Test strip (U) [Mass/Vol] Negative Normal Trace, Negative [facility] Comment on above: Order Comment: Speci men Type: URINE SPECIMENOrdering Facility: [facility] Address: [address] [place] [address] Performed By: #### 2 4356-8 ####[facility] LABORATORYIA [id number] [place] [address] [place] Hemoglobin Ql (U) Negative Normal Negative, Trace [facility] Comment on above: Order Comment: Speci men Type: URINE SPECIMENOrdering Facility: [facility] Address: [address] [place] [address] Performed By: #### 2 4356-8 ####[facility] HOSPITALIA [id number] [place] [address] [place] Ketones Ql (U) Negative Normal Negative, Trace [facility] Comment on above: Order Comment: Speci men Type: URINE SPECIMENOrdering Facility: [facility] Address: [address] [place] [address] Performed By: #### 2 4356-8 ####[facility] HOSPITALIA [id number] [place] [address] [place] Leukocyte esterase Test strip Ql (U) Negative Normal Negative, 25 Patito/uL [facility] Comment on above: Order Comment: Speci men Type: URINE SPECIMENOrdering Facility: [facility] Address: [address] [place] [address] Performed By: #### 2 4356-8 ####[facility] LABORATORYIA [id number] [place] [address] [place] Nitrite Ql (U) Negative Normal Negative [facility] Comment on above: Order Comment: Speci men Type: URINE SPECIMENOrdering Facility: [facility] Address: [address] [place] [address] Performed By: #### 2 4356-8 ####[facility] [id number] [place] [id number] [place] pH (U) 7.5 [pH] Normal 5.0-8.0 [facility] Comment on above: Order Comment: Speci men Type: URINE SPECIMENOrdering Facility: [facility] Address: [address] [place] [address] Performed By: #### 2 4356-8 ####[facility] [id number] [place] [id number] [place] Protein (U) [Mass/Vol] Trace Normal Trace, Negative [facility] Comment on above: Order Comment: Speci men Type: URINE SPECIMENOrdering Facility: [facility] Address: [address] [place] [address] Performed By: #### 2 4356-8 ####[facility] [id number] [place] [address] [place] RBC LM.HPF (Urine sed) [#/Area] 0-3 /HPF Normal 0-3 /HPF [facility] Comment on above: Order Comment: Speci men Type: URINE SPECIMENOrdering Facility: [facility] Address: [address] [place] [address] Performed By: #### 2 4356-8 ####[facility] [id number] [place] [address] [place] Specific gravity (U) [Rel density] <1.005 Low 1.005-1.030 [facility] Comment on above: Order Comment: Speci men Type: URINE SPECIMENOrdering Facility: [facility] Address: [address] [place] [address] Performed By: #### 2 4356-8 ####[facility] [id number] [place] [address] [place] Urobilinogen Ql (U) Normal Normal Normal [facility] Comment on above: Order Comment: Speci men Type: URINE SPECIMENOrdering Facility: [facility] Address: [address] [place] [address] Performed By: #### 2 4356-8 ####[facility] LABORATORYCLIA [id number] [place] [address] [place] WBC LM.HPF (Urine sed) [#/Area] 0-5 /HPF Normal 0-5 /HPF [facility] Comment on above: Order Comment: Speci men Type: URINE SPECIMENOrdering Facility: [facility] Address: [address] [place], [place] [address] Performed By: #### 2 4356-8 ####[facility] LABORATORYCLIA [id number] [place] [address] [place] XR CHEST 1V FRONTAL PORTon 0 08-04-2023 XR CHEST 1V FRONTAL PORT Normal [facility] Activated partial thrombopla stin time (aPTT) in platelet poor plasma by coagulation aOrdered By: Jeramy Cunningham on 07-31-2023 aPTT Coag (PPP) [Time] 27.0 s 25.1-36.5 [facility] Comment on above: A hematocrit value g reater than 55% may lead to inaccurate results in coagulation testing. Patients having hematocrit values >55% require a special collection tube for coagulation studies. Please contact the laboratory at [phone] for redraw instructions. Alanine aminotransferase [En zymatic activity/volume] in Serum or PlasmaOrdered By: Jeramy Cunningham on 07-31-2023 ALT [Catalytic activity/Vol] 29 U/L 7-52 [facility] Comment on above: Performed By: #### C BC, BMP, HEPATIC, LIPASE #### [facility] [address] Albumin [Mass/volume] in Ser um or Plasma by Bromocresol green (BCG) dye binding methoOrdered By: Jeramy Cunningham on 07-31-2023 Albumin BCG dye [Mass/Vol] 4.0 g/dL 3.5-5.7 [facility] Alkaline phosphatase [Enzyma tic activity/volume] in Serum or PlasmaOrdered By: Jeramy Cunningham on 07-31-2023 ALP [Catalytic activity/Vol] 58 U/L 34-104 [facility] Comment on above: Performed By: #### C BC, BMP, HEPATIC, LIPASE #### [facility] [address] Aspartate aminotransferase [ Enzymatic activity/volume] in Serum or PlasmaOrdered By: Jeramy Cunningham on 07-31-2023 AST [Catalytic activity/Vol] 34 U/L 13-39 [facility] Comment on above: Performed By: #### C BC, BMP, HEPATIC, LIPASE #### [address] Automated basophil %Ordered By: Jeramy Cunningham on 07-31-2023 Basophils/100 WBC (Bld) 0.6 % . [facility] Comment on above: Performed By: #### C BC, BMP, HEPATIC, LIPASE #### [address] Automated basophil countOrde red By: Jeramy Cunningham on 07-31-2023 Basophils (Bld) [#/Vol] 0.0 10*3/uL 0.0-0.2 [facility] Comment on above: Result Comment: PERF ORMED BY: [place] [address] PATHOLOGIST TALENT ACQUISITION ASSISTANT BAUTISTA BAKER M.D. Performed By: #### C BC, BMP, HEPATIC, LIPASE #### [facility] [address] [place] [address] Automated blood monocyte cou ntOrdered By: Jeramy Cunningham on 07-31-2023 Monocytes (Bld) [#/Vol] 0.2 10*3/uL 0.0-0.8 [facility] Comment on above: Performed By: #### C BC, BMP, HEPATIC, LIPASE #### [address] Automated eosinophil %Ordere d By: Jeramy Cunningham on 07-31-2023 Eosinophils/100 WBC (Bld) 0.2 % . [facility] Comment on above: Performed By: #### C BC, BMP, HEPATIC, LIPASE #### [address] Automated eosinophil countOr dered By: Jeramy Cunningham on 07-31-2023 Eosinophils (Bld) [#/Vol] 0.0 10*3/uL 0.0-0.45 [facility] Comment on above: Performed By: #### C BC, BMP, HEPATIC, LIPASE #### [address] Automated monocyte %Ordered By: Jeramy Cunningham on 07-31-2023 Monocytes/100 WBC (Bld) 3.1 % . [facility] Comment on above: Performed By: #### C BC, BMP, HEPATIC, LIPASE #### [address] Automated neutrophil %Ordere d By: Jeramy Cunningham on 07-31-2023 Neutrophils/100 WBC (Bld) 84.9 % . [facility] Comment on above: Performed By: #### C BC, BMP, HEPATIC, LIPASE #### [address] Basic Metabolic Panelon 07-16 Creatinine Clr Calc Pharmacy 120.10 Normal [facility] Comment on above: Performed By: #### C BC, BMP, HEPATIC, LIPASE #### [address] GFR/1.73 sq M.predicted MDRD (S/P/Bld) [Vol rate/Area] mL/min/{1.73_m2} Normal [facility] Comment on above: Performed By: #### C BC, BMP, HEPATIC, LIPASE #### [address] Bilirubin Test strip Ql (U)O rdered By: Jeramy Cunningham on 07-31-2023 Bilirubin Ql (U) Negative Negative [facility] Bilirubin.direct [Mass/volum e] in Serum or PlasmaOrdered By: Jeramy Cunningham on 07-31-2023 Bilirubin.direct [Mass/Vol] 0.10 mg/dL 0.03-0.18 [facility] Bilirubin.total [Mass/volume ] in Serum or PlasmaOrdered By: Jeramy Cunningham on 07-31-2023 Bilirubin [Mass/Vol] 0.4 mg/dL 0.3-1.0 [facility] Comment on above: Performed By: #### C BC, BMP, HEPATIC, LIPASE #### [facility] [address] abdomen pelvis w conon CT abdomen pelvis w con [facility] [place] [address] [place] [address] CT Scan Report Signed Patient: Abbey Garcia MR#: [id number] : 1990 Acct:[id number] Age/Sex: 33 / F ADM Date: 07/31/23 Loc: ER Room: Type: [facility] ER Attending Dr: Copies to: Jeramy Cunningham [...] Jason Palomo M.D.07/31/2023 12:28 PM Dictation Location: [place] [address] Transcribed By: [facility] 07/31/23 1228 Dictated By: Jason Palomo DO 07/31/23 1223 Signed By: 07/31/23 1228 Normal [facility] Calcium [Mass/volume] in Ser um or PlasmaOrdered By: Jeramy Cunningham on 07-31-2023 Calcium [Mass/Vol] 8.5 mg/dL Low 8.6-10.3 [facility] Comment on above: Performed By: #### C BC, BMP, HEPATIC, LIPASE #### [address] Carbon dioxide, total [Moles /volume] in Serum or PlasmaOrdered By: Jeramy Cunningham on 07-31-2023 CO2 [Moles/Vol] 26.1 mmol/L 21.0-31.0 [facility] Comment on above: Performed By: #### C BC, BMP, HEPATIC, LIPASE #### [facility] [address] [place] [address] [place] Chloride [Moles/volume] in S elder or PlasmaOrdered By: Jeramy Cunningham on 07-31-2023 Chloride [Moles/Vol] 107 mmol/L 98-107 [facility] Comment on above: Performed By: #### C BC, BMP, HEPATIC, LIPASE #### [facility] [address] [place] [address] [place] Color of Urine by AutoOrdere d By: Jeramy Cunningham on 07-31-2023 Color (U) Colorless Yellow [facility] Comment on above: Order Comment: Name Collection Type:: Clean-Voided Midstream Performed By: #### C BC, BMP, HEPATIC, LIPASE #### [place] [address] [place] Complete Blood Count Auto Di ffon 07-31-2023 Mean Corpuscular HGB Conc 33.8 g/dL Normal 32.0-35.0 [facility] Comment on above: Performed By: #### C BC, BMP, HEPATIC, LIPASE #### [facility] [address] [place] [address] [place] Monocytes/100 WBC (Bld) 14.62 % Normal 0.00-20.00 [facility] Comment on above: Performed By: #### C BC, BMP, HEPATIC, LIPASE #### [facility] [address] NRBC% 0.1 /100{WBC} Normal 0-0.5 [facility] Comment on above: Performed By: #### C BC, BMP, HEPATIC, LIPASE #### [address] Creatinine [Mass/volume] in Serum or PlasmaOrdered By: Jeramy Cunningham on 07-31-2023 Creatinine [Mass/Vol] 0.70 mg/dL 0.60-1.20 [facility] Comment on above: Performed By: #### C BC, BMP, HEPATIC, LIPASE #### [address] Erythrocyte distribution wid th [Ratio] by Automated countOrdered By: Jeramy Cunningham on 07-31-2023 Erythrocyte distribution width (RBC) [Ratio] 14.2 % 11.9-15.3 [facility] Comment on above: Performed By: #### C BC, BMP, HEPATIC, LIPASE #### [place] [address] [place] Erythrocytes [#/volume] in B lood by Automated countOrdered By: Jeramy Cunningham on 07-31-2023 RBC (Bld) [#/Vol] 3.75 10*6/uL 3.60-5.00 [facility] Comment on above: Performed By: #### C BC, BMP, HEPATIC, LIPASE #### [address] Glucose [Mass/volume] in Ser um or PlasmaOrdered By: Jeramy Cunningham on 07-31-2023 Glucose [Mass/Vol] 91 mg/dL 70-100 [facility] Comment on above: ADA recommended refe rence rangeRandom Glucose Reference Range is dependent on time and content of last meal. Glucose of more than 200 mg/dL in a nonstressed, ambulatory subject supports the diagnosis of Diabetes Mellitus. Result Comment: [place] om Glucose Reference Range is dependent on time and content of last meal. Glucose of more than 200 mg/dL in a nonstressed, ambulatory subject supports the diagnosis of Diabetes Mellitus. ADA recommended reference range Performed By: #### C BC, BMP, HEPATIC, LIPASE #### [facility] [address] [place] [address] Glucose [Mass/volume] in Uri ne by Test stripOrdered By: Jeramy Cunningham on 07-31-2023 Glucose Test strip (U) [Mass/Vol] Normal mg/dL Normal [facility] HCG ( test) [place].rapi d Ql (U)Ordered By: Jeramy Cunningham on 07-31-2023 HCG ( test) Ql (U) Negative [facility] HCG,Urineon 07-31-2023 Beta HCG ( test) Ql (U) Negative Normal [facility] Comment on above: Order Comment: Name Collection Type:: Clean-Voided Midstream Result Comment: PERF ORMED BY: [place] [address] PATHOLOGIST TALENT ACQUISITION ASSISTANT BAUTISTA BAKER M.D. Performed By: #### C BC, BMP, HEPATIC, LIPASE #### [address] Hematocrit [Volume Fraction] of Blood by Automated countOrdered By: Jeramy Cunningham on 07-31-2023 Hematocrit (Bld) [Volume fraction] 33.2 % Low 34.0-46.4 [facility] Comment on above: Performed By: #### C BC, BMP, HEPATIC, LIPASE #### [address] Hemoglobin Test strip Ql (U) Ordered By: Jeramy Cunningham on 07-31-2023 Hemoglobin Ql (U) Negative Negative [facility] Hemoglobin [Mass/volume] in BloodOrdered By: Jeramy Cunningham on 07-31-2023 Hemoglobin (Bld) [Mass/Vol] 11.2 g/dL Low 11.8-15.4 [facility] Comment on above: Performed By: #### C BC, BMP, HEPATIC, LIPASE #### [facility] [address] Hepatic Panelon 07-31-2023 Albumin [Mass/Vol] 4.0 g/dL Normal 3.5-5.7 [facility] Comment on above: Performed By: #### C BC, BMP, HEPATIC, LIPASE #### [facility] [address] Bilirubin,Indirect 0.3 mg/dL Normal [facility] Comment on above: Performed By: #### C BC, BMP, HEPATIC, LIPASE #### [facility] [address] Bilirubin.indirect [Mass/Vol] 0.10 mg/dL Normal 0.03-0.18 [facility] Comment on above: Performed By: #### C BC, BMP, HEPATIC, LIPASE #### [facility] [address] INR in Platelet poor plasma by Coagulation assayOrdered By: Jeramy Cunningham on 07-31-2023 INR Coag (PPP) [Relative time] 1.1 {INR} [facility] Comment on above: INR Therapeutic Rang [...] #### C BC, BMP, HEPATIC, LIPASE #### [address] Ketones [Presence] in Urine by Test stripOrdered By: Jeramy Cunningham on 07-31-2023 Ketones Ql (U) Negative Negative [facility] Comment on above: Order Comment: Name Collection Type:: Clean-Voided Midstream Performed By: #### C BC, BMP, HEPATIC, LIPASE #### [address] Leukocyte esterase [Presence ] in Urine by Test stripOrdered By: Jeramy Cunningham on 07-31-2023 Leukocyte esterase Test strip Ql (U) Negative Negative [facility] Comment on above: Order Comment: Name Collection Type:: Clean-Voided Midstream Performed By: #### C BC, BMP, HEPATIC, LIPASE #### [address] Leukocytes [#/volume] correc darvin for nucleated erythrocytes in Blood by Automated counOrdered By: Jeramy Cunningham on 07-31-2023 WBC corrected for nucl RBC Auto (Bld) [#/Vol] 7.7 10*3/uL 3.8-11.6 [facility] Leukocytes [#/volume] in Blo od by Automated countOrdered By: Jeramy Cunningham on 07-31-2023 WBC (Bld) [#/Vol] 7.7 10*3/uL 3.8-11.6 [facility] Comment on above: Performed By: #### C BC, BMP, HEPATIC, LIPASE #### [address] Lipase [Enzymatic activity/v olume] in Serum or PlasmaOrdered By: Jeramy Cunningham on 07-31-2023 Lipase [Catalytic activity/Vol] 36.0 U/L 11.0-82.0 [facility] Comment on above: Result Comment: PERF ORMED BY: [place] [address] PATHOLOGIST TALENT ACQUISITION ASSISTANT BAUTISTA BAKER M.D. Performed By: #### C BC, BMP, HEPATIC, LIPASE #### [address] [place] [address] [place] Lymphocytes [#/volume] in Bl ood by Automated countOrdered By: Jeramy Cunningham on 07-31-2023 Lymphocytes (Bld) [#/Vol] 0.9 10*3/uL Low 1.00-4.8 [facility] Comment on above: Performed By: #### C BC, BMP, HEPATIC, LIPASE #### [facility] [address] [place] [address] Lymphocytes/100 leukocytes i n Blood by Automated countOrdered By: Jeramy Cunningham on 07-31-2023 Lymphocytes/100 WBC (Bld) 11.2 % . [facility] Comment on above: Performed By: #### C BC, BMP, HEPATIC, LIPASE #### [address] MCH [Entitic mass] by Automa darvin countOrdered By: Jeramy Cunningham on 07-31-2023 MCH (RBC) [Entitic mass] 29.9 pg 24.7-34.3 [facility] Comment on above: Performed By: #### C BC, BMP, HEPATIC, LIPASE #### [address] MCHC Auto (RBC) [Mass/Vol]Or dered By: Jeramy Cunningham on 07-31-2023 MCHC (RBC) [Mass/Vol] 33.8 g/dL 32.0-35.0 [facility] MCV [Entitic volume] by Auto mated countOrdered By: Jeramy Cunningham on 07-31-2023 MCV (RBC) [Entitic vol] 88.6 fL 80-100 [facility] Comment on above: Performed By: #### C BC, BMP, HEPATIC, LIPASE #### [facility] [address] [place] [address] Monocyte distribution width [Entitic volume] in Blood by AutomatedOrdered By: Jeramy Cunningham on 07-31-2023 Monocyte distribution width Auto (Bld) [Entitic vol] 14.62 % 0.00-20.00 [facility] Neutrophils [#/volume] in Bl ood by Automated countOrdered By: Jeramy Cunningham on 07-31-2023 Neutrophils (Bld) [#/Vol] 6.5 10*3/uL 1.8-7.7 [facility] Comment on above: Performed By: #### C BC, BMP, HEPATIC, LIPASE #### [facility] [address] [place] [address] Nitrite Test strip Ql (U)Ord ered By: Jeramy Cunningham on 07-31-2023 Nitrite Ql (U) Negative Negative [facility] No Panel InformationOrdered By: Jeramy Cunningham on 07-31-2023 Estimated GFR (CKD-EPI) > 60.0 mL/Min [facility] Creatinine Clearance (Chem 120.10 [facility] Nucleated erythrocytes [Pres ence] in Blood by Automated countOrdered By: Jeramy Cunningham on 07-31-2023 Nucleated RBC Auto Ql (Bld) 0.1 /100{WBC} 0-0.5 [facility] Partial Thromboplastin Timeo n 07-31-2023 aPTT Coag (Bld) [Time] 27.0 s Normal 25.1-36.5 [facility] Comment on above: Result Comment: A he matocrit value greater than 55% may lead to inaccurate results in coagulation testing. Patients having hematocrit values >55% require a special collection tube for coagulation studies. Please contact the laboratory at [phone] for redraw instructions. PERFORMED BY: [place] [address] PATHOLOGIST TALENT ACQUISITION ASSISTANT BAUTISTA BAKER M.D. Performed By: #### C BC, BMP, HEPATIC, LIPASE #### [facility] [address] [place] [address] [place] Platelet mean volume [Entiti c volume] in Blood by Automated countOrdered By: Jeramy Cunningham on 07-31-2023 Platelet mean volume (Bld) [Entitic vol] 8.5 fL 6.3-10.7 [facility] Comment on above: Performed By: #### C BC, BMP, HEPATIC, LIPASE #### [facility] [address] [place] [address] [place] Platelets [#/volume] in Bloo d by Automated countOrdered By: Jeramy Cunningham on 07-31-2023 Platelets (Bld) [#/Vol] 276 10*3/uL 150-450 [facility] Comment on above: Performed By: #### C BC, BMP, HEPATIC, LIPASE #### [address] Potassium [Moles/volume] in Serum or PlasmaOrdered By: Jeramy Cunningham on 07-31-2023 Potassium [Moles/Vol] 3.8 mmol/L 3.5-5.1 [facility] Comment on above: Performed By: #### C BC, BMP, HEPATIC, LIPASE #### [address] Protein Test strip (U) [Mass /Vol]Ordered By: Jeramy Cunningham on 07-31-2023 Protein (U) [Mass/Vol] Negative Negative [facility] Protein [Mass/volume] in Ser um or PlasmaOrdered By: Jeramy Cunningham on 07-31-2023 Protein [Mass/Vol] 6.7 g/dL 6.4-8.9 [facility] Comment on above: Performed By: #### C BC, BMP, HEPATIC, LIPASE #### [address] Prothrombin time (PT)Ordered By: Jeramy Cunningham on 07-31-2023 PT Coag (PPP) [Time] 12.3 s 9.0-12.9 [facility] Comment on above: A hematocrit value g reater than 55% may lead to inaccurate results in coagulation testing. Patients having hematocrit values >55% require a special collection tube for coagulation studies. Please contact the laboratory at [phone] for redraw instructions. Result Comment: A he matocrit value greater than 55% may lead to inaccurate results in coagulation testing. Patients having hematocrit values >55% require a special collection tube for coagulation studies. Please contact the laboratory at [phone] for redraw instructions. Performed By: #### C BC, BMP, HEPATIC, LIPASE #### [address] Serum globulin measurement b y calculation (mass/volume)Ordered By: Jeramy Cunningham on 07-31-2023 Globulin (S) [Mass/Vol] 2.7 g/dL [facility] Comment on above: Performed By: #### C BC, BMP, HEPATIC, LIPASE #### [facility] [address] [place] [address] Serum or plasma albumin/glob ulin mass ratioOrdered By: Jeramy Cunningham on 07-31-2023 Albumin/Globulin [Mass ratio] 1.5 {ratio} [facility] Comment on above: Performed By: #### C BC, BMP, HEPATIC, LIPASE #### [facility] [address] [place] [address] Serum or plasma anion gap de terminationOrdered By: Jeramy Cunningham on 07-31-2023 Anion gap [Moles/Vol] 10.7 mmol/L 6.0-15.0 [facility] Comment on above: Performed By: #### C BC, BMP, HEPATIC, LIPASE #### [facility] [address] [place] [address] Serum or plasma non-glucuron idated bilirubin measurement (mass/volume)Ordered By: Jeramy Cunningham on 07-31-2023 Bilirubin.indirect [Mass/Vol] 0.3 mg/dL [facility] Sodium [Moles/volume] in Ser um or PlasmaOrdered By: Jeramy Cunningham on 07-31-2023 Sodium [Moles/Vol] 140 mmol/L 136-145 [facility] Comment on above: Performed By: #### C BC, BMP, HEPATIC, LIPASE #### [facility] [address] [place] [address] Specific gravity Test strip (U) [Rel density]Ordered By: Jeramy Cunningham on 07-31-2023 Specific gravity (U) [Rel density] 1.006 1.001-1.030 [facility] Urea nitrogen [Mass/volume] in Serum or PlasmaOrdered By: Jeramy Cunningham on 07-31-2023 Urea nitrogen [Mass/Vol] 16 mg/dL 7-25 [facility] Comment on above: Performed By: #### C BC, BMP, HEPATIC, LIPASE #### [address] Urinalysison 07-31-2023 Bilirubin,Urine Negative Normal Negative [facility] Comment on above: Order Comment: Name Collection Type:: Clean-Voided Midstream Performed By: #### C BC, BMP, HEPATIC, LIPASE #### [address] Glucose Ql (U) Normal Normal Normal [facility] Comment on above: Order Comment: Name Collection Type:: Clean-Voided Midstream Performed By: #### C BC, BMP, HEPATIC, LIPASE #### [address] Nitrite,Urine Negative Normal Negative [facility] Comment on above: Order Comment: Name Collection Type:: Clean-Voided Midstream Performed By: #### C BC, BMP, HEPATIC, LIPASE #### [address] Occult Blood,Urine Negative Normal Negative [facility] Comment on above: Order Comment: Name Collection Type:: Clean-Voided Midstream Performed By: #### C BC, BMP, HEPATIC, LIPASE #### [address] Protein,Urine Negative Normal Negative [facility] Comment on above: Order Comment: Name Collection Type:: Clean-Voided Midstream Performed By: #### C BC, BMP, HEPATIC, LIPASE #### [address] Specificy [place],Urine 1.006 Normal 1.001-1.030 [facility] Comment on above: Order Comment: Name Collection Type:: Clean-Voided Midstream Performed By: #### C BC, BMP, HEPATIC, LIPASE #### [address] Urobilinogen,Urine Normal Normal Normal [facility] Comment on above: Order Comment: Name Collection Type:: Clean-Voided Midstream Performed By: #### C BC, BMP, HEPATIC, LIPASE #### [address] [place] [address] [place] Urine appearanceOrdered By: Jeramy Cunningham on 07-31-2023 Appearance (U) Clear Clear [facility] Comment on above: Order Comment: Name Collection Type:: Clean-Voided Midstream Performed By: #### C BC, BMP, HEPATIC, LIPASE #### [address] Urobilinogen Test strip (U) [Mass/Vol]Ordered By: Jeramy Cunningham on 07-31-2023 Urobilinogen (U) [Mass/Vol] Normal mg/dL Normal [facility] pH of Urine by Test stripOrd ered By: Jeramy Cunningham on 07-31-2023 pH (U) 8.0 [pH] 5.0-9.0 [facility] Comment on above: Order Comment: Name Collection Type:: Clean-Voided Midstream Performed By: #### C BC, BMP, HEPATIC, LIPASE #### [address] CBC W Auto Differential pane l (Bld)on 07-30-2023 Basophils (Bld) [#/Vol] 0.04 10*3/uL Normal <0.11 [facility] Comment on above: Order Comment: Speci men Type: BLOOD SPECIMENOrdering Facility: [facility] Address: [address] [place] [address] Performed By: #### 5 7021-8 ####[facility] [id number] [place] [address] [place] Basophils/100 WBC (Bld) 0.4 % Normal [facility] Comment on above: Order Comment: Speci men Type: BLOOD SPECIMENOrdering Facility: [facility] Address: [address] [place] [address] Performed By: #### 5 7021-8 ####[facility] [id number] [place] [address] [place] Differential cell count method Nom (Bld) Auto Normal [facility] Comment on above: Order Comment: Speci men Type: BLOOD SPECIMENOrdering Facility: [facility] Address: [address] [place] [address] Performed By: #### 5 7021-8 ####[facility] [id number] [place] [address] [place] Eosinophils (Bld) [#/Vol] 0.05 10*3/uL Normal <0.46 [facility] Comment on above: Order Comment: Speci men Type: BLOOD SPECIMENOrdering Facility: [facility] Address: [address] [place] [address] Performed By: #### 5 7021-8 ####[facility] [id number] [place] [address] [place] Eosinophils/100 WBC (Bld) 0.5 % Normal [facility] Comment on above: Order Comment: Speci men Type: BLOOD SPECIMENOrdering Facility: [facility] Address: [address] [place] [address] Performed By: #### 5 7021-8 ####[facility] [id number] [place] [address] [place] Erythrocyte distribution width (RBC) [Ratio] 13.0 % Normal 11.5-15.0 [facility] Comment on above: Order Comment: Speci men Type: BLOOD SPECIMENOrdering Facility: [facility] Address: [address] [place] [address] Performed By: #### 5 7021-8 ####[facility] [id number] [place] [address] [place] Hematocrit (Bld) [Volume fraction] 33.7 % Low 36.0-46.0 [facility] Comment on above: Order Comment: Speci men Type: BLOOD SPECIMENOrdering Facility: [facility] Address: [address] [place] [address] Performed By: #### 5 7021-8 ####[facility] [id number] [place] [address] [place] Hemoglobin (Bld) [Mass/Vol] 11.1 g/dL Low 11.5-15.5 [facility] Comment on above: Order Comment: Speci men Type: BLOOD SPECIMENOrdering Facility: [facility] Address: [address] [place] [address] Performed By: #### 5 7021-8 ####[facility] [id number] [place] [address] [place] Immature granulocytes (Bld) [#/Vol] 0.03 10*3/uL Normal <0.10 [facility] Comment on above: Order Comment: Speci men Type: BLOOD SPECIMENOrdering Facility: [facility] Address: [address] [place] [address] Performed By: #### 5 7021-8 ####[facility] [id number] [place] [address] [place] Immature granulocytes/100 WBC (Bld) 0.3 % Normal [facility] Comment on above: Order Comment: Speci men Type: BLOOD SPECIMENOrdering Facility: [facility] Address: [address] [place] [address] Performed By: #### 5 7021-8 ####[facility] [id number] [place] [address] [place] Lymphocytes (Bld) [#/Vol] 2.10 10*3/uL Normal 1.00-4.00 [facility] Comment on above: Order Comment: Speci men Type: BLOOD SPECIMENOrdering Facility: [facility] Address: [address] [place] [address] Performed By: #### 5 7021-8 ####[facility] [id number] [place] [address] [place] Lymphocytes/100 WBC (Bld) 22.0 % Normal [facility] Comment on above: Order Comment: Speci men Type: BLOOD SPECIMENOrdering Facility: [facility] Address: [address] [place] [address] Performed By: #### 5 7021-8 ####[facility] [id number] [place] [address] [place] MCH (RBC) [Entitic mass] 29.8 pg Normal 26.0-34.0 [facility] Comment on above: Order Comment: Speci men Type: BLOOD SPECIMENOrdering Facility: [facility] Address: [address] [place] [address] Performed By: #### 5 7021-8 ####[facility] [id number] [place] [address] [place] MCHC (RBC) [Mass/Vol] 32.9 g/dL Normal 30.5-36.0 [facility] Comment on above: Order Comment: Speci men Type: BLOOD SPECIMENOrdering Facility: [facility] Address: [address] [place] [address] Performed By: #### 5 7021-8 ####[facility] [id number] [place] [address] [place] MCV (RBC) [Entitic vol] 90.3 fL Normal 80.0-100.0 [facility] Comment on above: Order Comment: Speci men Type: BLOOD SPECIMENOrdering Facility: [facility] Address: [address] [place] [address] Performed By: #### 5 7021-8 ####[facility] [id number] [place] [address] [place] Monocytes (Bld) [#/Vol] 0.57 10*3/uL Normal <0.87 [facility] Comment on above: Order Comment: Speci men Type: BLOOD SPECIMENOrdering Facility: [facility] Address: [address] [place] [address] Performed By: #### 5 7021-8 ####[facility] [id number] [place] [address] [place] Monocytes/100 WBC (Bld) 6.0 % Normal [facility] Comment on above: Order Comment: Speci men Type: BLOOD SPECIMENOrdering Facility: [facility] Address: [address] [place] [address] Performed By: #### 5 7021-8 ####[facility] [id number] [place] [address] [place] Neutrophils (Bld) [#/Vol] 6.74 10*3/uL Normal 1.45-7.50 [facility] Comment on above: Order Comment: Speci men Type: BLOOD SPECIMENOrdering Facility: [facility] Address: [address] [place] [address] Performed By: #### 5 7021-8 ####[facility] [id number] [place] [address] [place] Neutrophils/100 WBC (Bld) 70.8 % Normal [facility] Comment on above: Order Comment: Speci men Type: BLOOD SPECIMENOrdering Facility: [facility] Address: [address] [place] [address] Performed By: #### 5 7021-8 ####[facility] [id number] [place] [address] [place] Nucleated RBC (Bld) [#/Vol] 10*3/uL Normal <0.01 [facility] Comment on above: Order Comment: Speci men Type: BLOOD SPECIMENOrdering Facility: [facility] Address: [address] [place] [address] Performed By: #### 5 7021-8 ####[facility] [id number] [place] [address] [place] Nucleated RBC/100 WBC (Bld) [Ratio] 0.0 /100 WBC Normal [facility] Comment on above: Order Comment: Speci men Type: BLOOD SPECIMENOrdering Facility: [facility] Address: [address] [place] [address] Performed By: #### 5 7021-8 ####[facility] [id number] [place] [address] [place] Platelet mean volume (Bld) [Entitic vol] 10.3 fL Normal 9.0-12.7 [facility] Comment on above: Order Comment: Speci men Type: BLOOD SPECIMENOrdering Facility: [facility] Address: [address] [place] [address] Performed By: #### 5 7021-8 ####[facility] [id number] [place] [address] [place] Platelets (Bld) [#/Vol] 258 10*3/uL Normal 150-400 [facility] Comment on above: Order Comment: Speci men Type: BLOOD SPECIMENOrdering Facility: [facility] Address: [address] [place] [address] Performed By: #### 5 7021-8 ####[facility] [id number] [place] [address] [place] RBC (Bld) [#/Vol] 3.73 10*6/uL Low 3.90-5.20 [facility] Comment on above: Order Comment: Speci men Type: BLOOD SPECIMENOrdering Facility: [facility] Address: [address] [place] [address] Performed By: #### 5 7021-8 ####[facility] [id number] [place] [address] [place] WBC (Bld) [#/Vol] 9.53 10*3/uL Normal 3.70-11.00 [facility] Comment on above: Order Comment: Speci men Type: BLOOD SPECIMENOrdering Facility: [facility] Address: [address] [place] [address] Performed By: #### 5 7021-8 ####[facility] [id number] [place] [address] [place] [facility] Comprehensive metabolic 2000 panelon 07-30-2023 Albumin [Mass/Vol] 4.0 g/dL Normal 3.9-4.9 [facility] Comment on above: Order Comment: Speci men Type: BLOOD SPECIMENOrdering Facility: [facility] Address: [address] [place] [address] Performed By: #### 2 4323-8 ####[facility] [id number] [place] [address] [place] ALP [Catalytic activity/Vol] 64 U/L Normal 34-123 [facility] Comment on above: Order Comment: Speci men Type: BLOOD SPECIMENOrdering Facility: [facility] Address: [address] [place] [address] Performed By: #### 2 4323-8 ####[facility] [id number] [place] [address] [place] ALT [Catalytic activity/Vol] 30 U/L Normal 7-38 [facility] Comment on above: Order Comment: Speci men Type: BLOOD SPECIMENOrdering Facility: [facility] Address: [address] [place] [address] Performed By: #### 2 4323-8 ####[facility] LABCLIA [id number] [place] [id number] [place] Anion gap [Moles/Vol] 12 mmol/L Normal 8-15 [facility] Comment on above: Order Comment: Speci men Type: BLOOD SPECIMENOrdering Facility: [facility] Address: [address] [place] [address] Performed By: #### 2 4323-8 ####[facility] LABCLIA [id number] [place] [address] [place] AST [Catalytic activity/Vol] 30 U/L Normal 13-35 [facility] Comment on above: Order Comment: Speci men Type: BLOOD SPECIMENOrdering Facility: [facility] Address: [address] [place] [address] Performed By: #### 2 4323-8 ####[facility] LABCLIA [id number] [place] [address] [place] Bilirubin [Mass/Vol] 0.2 mg/dL Normal 0.2-1.3 [facility] Comment on above: Order Comment: Speci men Type: BLOOD SPECIMENOrdering Facility: [facility] Address: [address] [place] [address] Performed By: #### 2 4323-8 ####[facility] LABCLIA [id number] [place] [address] [place] Calcium [Mass/Vol] 8.7 mg/dL Normal 8.5-10.2 [facility] Comment on above: Order Comment: Speci men Type: BLOOD SPECIMENOrdering Facility: [facility] Address: [address] [place] [address] Performed By: #### 2 4323-8 ####[facility] LABCLIA [id number] [place] [address] [place] Chloride [Moles/Vol] 105 mmol/L Normal 98-107 [facility] Comment on above: Order Comment: Speci men Type: BLOOD SPECIMENOrdering Facility: [facility] Address: [address] [place] [address] Performed By: #### 2 4323-8 ####[facility] LABCLIA [id number] [place] [address] [place] CO2 [Moles/Vol] 22 mmol/L Normal 22-30 [facility] Comment on above: Order Comment: Speci men Type: BLOOD SPECIMENOrdering Facility: [facility] Address: [address] [place] [address] Performed By: #### 2 4323-8 ####[facility] [id number] [address] STATES OF [facility] Creatinine [Mass/Vol] 0.59 mg/dL Normal 0.58-0.96 [facility] Comment on above: Order Comment: Speci men Type: BLOOD SPECIMENOrdering Facility: [facility] Address: [address] [place] [address] Performed By: #### 2 4323-8 ####[facility] [id number] [address] OF [facility] Creatinine and Glomerular filtration rate.predicted panel (S/P/Bld) 121 mL/min/1.73m??? Normal >=60 [facility] Comment on above: Order Comment: Geraldo marrero Type: BLOOD SPECIMENOrdering Facility: [facility] Address: [address] [place] [address] Result Comment: Jessica mated Glomerular Filtration Rate [...] actual GFR. Performed By: #### 2 4323-8 ####[facility] [id number] [place] [address] [place] Glucose [Mass/Vol] 88 mg/dL Normal 74-99 [facility] Comment on above: Order Comment: Lyssai men Type: BLOOD SPECIMENOrdering Facility: [facility] Address: [address] [place] [address] Result Comment: The [place] Diabetes Association (ADA) provides guidance for cutoff [...] Standards of Medical Care in Diabetes 2016, [place] [employer]. Diabetes Care. 2016.39(Suppl 1). Performed By: #### 2 4323-8 ####[facility] LABCL[facility] [id number] [place] [address] [place] Potassium [Moles/Vol] 4.0 mmol/L Normal 3.7-5.1 [facility] Comment on above: Order Comment: Speci men Type: BLOOD SPECIMENOrdering Facility: [facility] Address: [address] [place] [address] Performed By: #### 2 4323-8 ####[facility]CL[facility] [id number] [place] [address] [place] Protein [Mass/Vol] 6.5 g/dL Normal 6.3-8.0 [facility] Comment on above: Order Comment: Speci men Type: BLOOD SPECIMENOrdering Facility: [facility] Address: [address] [place] [address] Performed By: #### 2 4323-8 ####[facility] [id number] [place] [address] [place] Sodium [Moles/Vol] 139 mmol/L Normal 136-144 [facility] Comment on above: Order Comment: Speci men Type: BLOOD SPECIMENOrdering Facility: [facility] Address: [address] [place] [address] Performed By: #### 2 4323-8 ####[facility] [id number] [place] [address] [place] Urea nitrogen [Mass/Vol] 13 mg/dL Normal 7-21 [facility] Comment on above: Order Comment: Speci men Type: BLOOD SPECIMENOrdering Facility: [facility] Address: [address] [place] [address] Performed By: #### 2 4323-8 ####[facility] LABCLIA [id number] [facility] [address] [address] [place] Basic metabolic 2000 panelon 07-20-2023 Anion gap [Moles/Vol] 14 mmol/L Normal 9-18 [facility] Comment on above: Order Comment: Speci men Type: BLOOD SPECIMENOrdering Facility: [facility] Address: [address] [place] [address] Performed By: #### 2 777-1, 44813-5, ####[facility]ATORYCLIA [id number] [place] [address] [place] Calcium [Mass/Vol] 8.9 mg/dL Normal 8.5-10.2 [facility] Comment on above: Order Comment: Speci men Type: BLOOD SPECIMENOrdering Facility: [facility] Address: [address] [place] [address] Performed By: #### 2 777-1, , ####[facility]ORATORYCLIA [id number] [place] [address] [place] Chloride [Moles/Vol] 110 mmol/L High 97-105 [facility] Comment on above: Order Comment: Speci men Type: BLOOD SPECIMENOrdering Facility: [facility] Address: [address] [place] [address] Performed By: #### 2 777-1, 08013-4, ####[facility]ORATORYCLIA [id number] [place] [address] [place] CO2 [Moles/Vol] 19 mmol/L Low 22-30 [facility] Comment on above: Order Comment: Speci men Type: BLOOD SPECIMENOrdering Facility: [facility] Address: [address] [place] [address] Performed By: #### 2 777-1, 04657-0 ####[facility]ORATORYCLIA [id number] [place] [address] [place] Creatinine [Mass/Vol] 0.76 mg/dL Normal 0.58-0.96 [facility] Comment on above: Order Comment: Geraldo marrero Type: BLOOD SPECIMENOrdering Facility: [facility] Address: [address] [place] [address] Performed By: #### 2 777-1, 79949-9, ####[facility]ORATORYCLIA [id number] [place] [id number] [facility] Creatinine and Glomerular filtration rate.predicted panel (S/P/Bld) 106 mL/min/1.73m??? Normal >=60 [facility] Comment on above: Order Comment: Geraldo marrero Type: BLOOD SPECIMENOrdering Facility: [facility] Address: [address] [place] [address] Result Comment: Jessica mated Glomerular Filtration Rate [...] actual GFR. Performed By: #### 2 777-1, 14573-4, ####[facility]ORATORYCLIA [id number] [place] [address] [place] Glucose [Mass/Vol] 97 mg/dL Normal 74-99 [facility] Comment on above: Order Comment: Geraldo marrero Type: BLOOD SPECIMENOrdering Facility: [facility] Address: [address] [place] [address] Result Comment: The [place] Diabetes Association (ADA) provides guidance for cutoff [...] Standards of Medical Care in Diabetes 2016, [place] [employer]. Diabetes Care. 2016.39(Suppl 1). Performed By: #### 2 777-1, 90249-0, ####[facility]ORATORYCLIA [id number] [place] [address] [place] Potassium [Moles/Vol] 4.0 mmol/L Normal 3.7-5.1 [facility] Comment on above: Order Comment: Geraldo marrero Type: BLOOD SPECIMENOrdering Facility: [facility] Address: [address] [place] [address] Performed By: #### 2 777-1, , ####[facility]ORATORYCLIA [id number] [place] [address] [place] Sodium [Moles/Vol] 143 mmol/L Normal 136-144 [facility] Comment on above: Order Comment: Geraldo marrero Type: BLOOD SPECIMENOrdering Facility: [facility] Address: [address] [place] [address] Performed By: #### 2 777-1, , ####[facility]ORATORYCLIA [id number] [place] [address] [place] Urea nitrogen [Mass/Vol] 8 mg/dL Normal 7-21 [facility] Comment on above: Order Comment: Speci men Type: BLOOD SPECIMENOrdering Facility: [facility] Address: [address] [place] [address] Performed By: #### 2 777-1, , ####[facility]ORATORYCLIA [id number] [place] [id number] [place] CASE MANAGEMon 07-20-2023 CASE MANAGEM Normal [facility] CBC W Auto Differential pane l (Bld)on 07-20-2023 Basophils (Bld) [#/Vol] 10*3/uL Normal <0.11 [facility] Comment on above: Order Comment: Speci men Type: BLOOD SPECIMENOrdering Facility: [facility] Address: [address] [place] [address] Performed By: #### 5 7021-8 ####[facility] LABORATORYCLIA [id number] [place] [address] [place] Basophils/100 WBC (Bld) 0.4 % Normal [facility] Comment on above: Order Comment: Speci men Type: BLOOD SPECIMENOrdering Facility: [facility] Address: [address] [place] [address] Performed By: #### 5 7021-8 ####[facility] LABORATORYCLIA [id number] [place] [address] [place] Differential cell count method Nom (Bld) Auto Normal [facility] Comment on above: Order Comment: Speci men Type: BLOOD SPECIMENOrdering Facility: [facility] Address: [address] [place] [address] Performed By: #### 5 7021-8 ####[facility] LABORATORYCLIA [id number] [place] [address] [place] Eosinophils (Bld) [#/Vol] 0.19 10*3/uL Normal <0.46 [facility] Comment on above: Order Comment: Speci men Type: BLOOD SPECIMENOrdering Facility: [facility] Address: [address] [place] [address] Performed By: #### 5 7021-8 ####[facility] LABORATORYCLIA [id number] [place] [address] [place] Eosinophils/100 WBC (Bld) 3.8 % Normal [facility] Comment on above: Order Comment: Speci men Type: BLOOD SPECIMENOrdering Facility: [facility] Address: [address] [place] [address] Performed By: #### 5 7021-8 ####[facility] LABORATORYCLIA [id number] [place] [address] [place] Erythrocyte distribution width (RBC) [Ratio] 12.8 % Normal 11.5-15.0 [facility] Comment on above: Order Comment: Speci men Type: BLOOD SPECIMENOrdering Facility: [facility] Address: [address] [place] [address] Performed By: #### 5 7021-8 ####[facility] LABORATORYCLIA [id number] [place] [address] [place] Hematocrit (Bld) [Volume fraction] 31.6 % Low 36.0-46.0 [facility] Comment on above: Order Comment: Speci men Type: BLOOD SPECIMENOrdering Facility: [facility] Address: [address] [place] [address] Performed By: #### 5 7021-8 ####[facility] LABORATORYCLIA [id number] [place] [address] [place] Hemoglobin (Bld) [Mass/Vol] 10.5 g/dL Low 11.5-15.5 [facility] Comment on above: Order Comment: Speci men Type: BLOOD SPECIMENOrdering Facility: [facility] Address: [address] [place] [address] Performed By: #### 5 7021-8 ####[facility]ORATORYCLIA [id number] [place] [address] [facility] [place] Immature granulocytes (Bld) [#/Vol] 10*3/uL Normal <0.10 [facility] Comment on above: Order Comment: Speci men Type: BLOOD SPECIMENOrdering Facility: [facility] Address: [address] [place] [address] Performed By: #### 5 7021-8 ####[facility] LABORATORYCLIA [id number] [place] [address] [place] Immature granulocytes/100 WBC (Bld) 0.2 % Normal [facility] Comment on above: Order Comment: Speci men Type: BLOOD SPECIMENOrdering Facility: [facility] Address: [address] [place] [address] Performed By: #### 5 7021-8 ####[facility] LABORATORYCLIA [id number] [place] [address] [place] Lymphocytes (Bld) [#/Vol] 0.99 10*3/uL Low 1.00-4.00 [facility] Comment on above: Order Comment: Speci men Type: BLOOD SPECIMENOrdering Facility: [facility] Address: [address] [place] [address] Performed By: #### 5 7021-8 ####[facility] LABORATORYCLIA [id number] [place] [address] [place] Lymphocytes/100 WBC (Bld) 19.8 % Normal [facility] Comment on above: Order Comment: Speci men Type: BLOOD SPECIMENOrdering Facility: [facility] Address: [address] [place] [address] Performed By: #### 5 7021-8 ####[facility]ORATORYCLIA [id number] [place] [address] [place] MCH (RBC) [Entitic mass] 30.2 pg Normal 26.0-34.0 [facility] Comment on above: Order Comment: Speci men Type: BLOOD SPECIMENOrdering Facility: [facility] Address: [address] [place] [address] Performed By: #### 5 7021-8 ####[facility] LABORATORYCLIA [id number] [place] [address] [place] MCHC (RBC) [Mass/Vol] 33.2 g/dL Normal 30.5-36.0 [facility] Comment on above: Order Comment: Speci men Type: BLOOD SPECIMENOrdering Facility: [facility] Address: [address] [place] [address] Performed By: #### 5 7021-8 ####[facility] LABORATORYCLIA [id number] [address] [place] MCV (RBC) [Entitic vol] 90.8 fL Normal 80.0-100.0 [facility] Comment on above: Order Comment: Speci men Type: BLOOD SPECIMENOrdering Facility: [facility] Address: [address] [place] [address] Performed By: #### 5 7021-8 ####[facility] LABORATORYCLIA [id number] [place] [id number] [place] Monocytes (Bld) [#/Vol] 0.32 10*3/uL Normal <0.87 [facility] Comment on above: Order Comment: Speci men Type: BLOOD SPECIMENOrdering Facility: [facility] Address: [address] [place] [address] Performed By: #### 5 7021-8 ####[facility] LABORATORYCLIA [id number] [place] [id number] [place] Monocytes/100 WBC (Bld) 6.4 % Normal [facility] Comment on above: Order Comment: Speci men Type: BLOOD SPECIMENOrdering Facility: [facility] Address: [address] [place] [address] Performed By: #### 5 7021-8 ####[facility] LABORATORYCLIA [id number] [place] [address] [place] Neutrophils (Bld) [#/Vol] 3.47 10*3/uL Normal 1.45-7.50 [facility] Comment on above: Order Comment: Speci men Type: BLOOD SPECIMENOrdering Facility: [facility] Address: [address] [place] [address] Performed By: #### 5 7021-8 ####[facility] LABORATORYCLIA [id number] [place] [id number] [place] Neutrophils/100 WBC (Bld) 69.4 % Normal [facility] Comment on above: Order Comment: Speci men Type: BLOOD SPECIMENOrdering Facility: [facility] Address: [address] [place] [address] Performed By: #### 5 7021-8 ####[facility]ORATORYCLIA [id number] [place] [address] [place] Nucleated RBC (Bld) [#/Vol] 10*3/uL Normal <0.01 [facility] Comment on above: Order Comment: Speci men Type: BLOOD SPECIMENOrdering Facility: [facility] Address: [address] [place] [address] Performed By: #### 5 7021-8 ####[facility] LABORATORYCLIA [id number] [place] [address] [place] Nucleated RBC/100 WBC (Bld) [Ratio] 0.0 /100 WBC Normal [facility] Comment on above: Order Comment: Speci men Type: BLOOD SPECIMENOrdering Facility: [facility] Address: [address] [place] [address] Performed By: #### 5 7021-8 ####[facility] LABORATORYCLIA [id number] [place] [address] [place] Platelet mean volume (Bld) [Entitic vol] 11.1 fL Normal 9.0-12.7 [facility] Comment on above: Order Comment: Speci men Type: BLOOD SPECIMENOrdering Facility: [facility] Address: [address] [place] [address] Performed By: #### 5 7021-8 ####[facility] LABORATORYCLIA [id number] [place] [address] [place] Platelets (Bld) [#/Vol] 225 10*3/uL Normal 150-400 [facility] Comment on above: Order Comment: Speci men Type: BLOOD SPECIMENOrdering Facility: [facility] Address: [address] [place] [address] Performed By: #### 5 7021-8 ####[facility] LABORATORYCLIA [id number] [place] [address] [place] RBC (Bld) [#/Vol] 3.48 10*6/uL Low 3.90-5.20 [facility] Comment on above: Order Comment: Speci men Type: BLOOD SPECIMENOrdering Facility: [facility] Address: [address] [place] [address] Performed By: #### 5 7021-8 ####[facility]ORATORYCLIA [id number] [place] [address] [place] WBC (Bld) [#/Vol] 5.00 10*3/uL Normal 3.70-11.00 [facility] Comment on above: Order Comment: Speci men Type: BLOOD SPECIMENOrdering Facility: [facility] Address: [address] [place], [place] [address] [id number] Performed By: #### 5 7021-8 ####[facility] LABORATORYCLIA [id number] [place] [address] [place] CNDSon 07-20-2023 CNDS Normal [facility] Magnesium [Mass/Vol] 2.1 mg/dL Normal 1.7-2.3 [facility] Comment on above: Order Comment: Speci men Type: BLOOD SPECIMENOrdering Facility: [facility] Address: [address] [place] [address] [place] [id number] Performed By: #### 2 777-1, 08085-1, ####[facility]ORATORYCLIA [id number] [place] [address] [place] NURSING PROGon 07-20-2023 NURSING PROG Normal [facility]ate [facility]19 Phosphate [Mass/Vol] 4.2 mg/dL Normal 2.7-4.8 [facility] Comment on above: Order Comment: Speci men Type: BLOOD SPECIMENOrdering Facility: [facility] Address: [facility] [place] [address] Performed By: #### 2 777-1, , ####[facility] LABORATORYCLIA [id number] [place] [address] [place] Basic metabolic 2000 panelon 07-19-2023 Anion gap [Moles/Vol] 9 mmol/L Normal 9-18 [facility] Comment on above: Order Comment: Speci men Type: BLOOD SPECIMENOrdering Facility: [facility] Address: [address] [place], [place] [address] [address] Performed By: #### 2 777-1, 58629-8, ####[facility]ORATORYCLIA [id number] [place] [address] [place] Calcium [Mass/Vol] 8.7 mg/dL Normal 8.5-10.2 [facility] Comment on above: Order Comment: Speci men Type: BLOOD SPECIMENOrdering Facility: [facility] Address: [address] [place] [address] Performed By: #### 2 777-1, 27571-6, ####[facility] LABORATORYCLIA [id number] [place] [address] [place] Chloride [Moles/Vol] 107 mmol/L High 97-105 [facility] Comment on above: Order Comment: Speci men Type: BLOOD SPECIMENOrdering Facility: [facility] Address: [address] [place] [address] Performed By: #### 2 777-1, 62607-0, ####[facility] LABORATORYCLIA [id number] [place] [address] [place] CO2 [Moles/Vol] 23 mmol/L Normal 22-30 [facility] Comment on above: Order Comment: Speci men Type: BLOOD SPECIMENOrdering Facility: [facility] Address: [address] [place] [address] Performed By: #### 2 777-1, , ####[facility] LABORATORYCLIA [id number] [place] [address] [place] Creatinine [Mass/Vol] 0.75 mg/dL Normal 0.58-0.96 [facility] Comment on above: Order Comment: Speci men Type: BLOOD SPECIMENOrdering Facility: [facility] Address: [address] [place] [address] Performed By: #### 2 777-1, , ####[facility] LABORATORYCLIA [id number] [place] [id number] [facility] [place] Creatinine and Glomerular filtration rate.predicted panel (S/P/Bld) 107 mL/min/1.73m??? Normal >=60 [facility] Comment on above: Order Comment: Speci men Type: BLOOD SPECIMENOrdering Facility: [facility] Address: [address] [place] [address] Result Comment: Jessica mated Glomerular Filtration Rate [...] actual GFR. Performed By: #### 2 777-1, 58210-5, ####[facility]ORATORYCLIA [id number] [place] [address] [place] Glucose [Mass/Vol] 81 mg/dL Normal 74-99 [facility] Comment on above: Order Comment: Geraldo marrero Type: BLOOD SPECIMENOrdering Facility: [facility] Address: [address] [place] [address] Result Comment: The [place] [employer] (ADA) provides guidance for cutoff [...] Standards of Medical Care in Diabetes 2016, [place] [employer]. Diabetes Care. 2016.39(Suppl 1). Performed By: #### 2 777-1, , ####[facility]ORATORYCLIA [id number] [place] [id number] [place] Potassium [Moles/Vol] 3.9 mmol/L Normal 3.7-5.1 [facility] Comment on above: Order Comment: Geraldo marrero Type: BLOOD SPECIMENOrdering Facility: [facility] Address: [address] [facility] [place] [place] [address] Performed By: #### 2 777-1, 86301-4, ####[facility]ORATORYCLIA [id number] [place] [address] [place] Sodium [Moles/Vol] 139 mmol/L Normal 136-144 [facility] Comment on above: Order Comment: Speci men Type: BLOOD SPECIMENOrdering Facility: [facility] Address: [address] [place] [address] Performed By: #### 2 777-1, 23254-0, ####[facility]ORATORYCLIA [id number] [place] [id number] [place] Urea nitrogen [Mass/Vol] 6 mg/dL Low 7-21 [facility] Comment on above: Order Comment: Speci men Type: BLOOD SPECIMENOrdering Facility: [facility] Address: [address] [place] [address] Performed By: #### 2 777-1, , ####[facility] LABORATORYCLIA [id number] [place] [address] [place] CASE MGT INIT ASSESon 2023 CASE MGT INIT ASSES Normal [facility] CBC W Auto Differential pane l (Bld)on 07-19-2023 Basophils (Bld) [#/Vol] 0.04 10*3/uL Normal <0.11 [facility] Comment on above: Order Comment: Speci men Type: BLOOD SPECIMENOrdering Facility: [facility] Address: [address] [place] [address] Performed By: #### 5 7021-8 ####[facility] LABORATORYCLIA [id number] [place] [address] [place] Basophils/100 WBC (Bld) 1.3 % Normal [facility] Comment on above: Order Comment: Speci men Type: BLOOD SPECIMENOrdering Facility: [facility] Address: [address] [place] [address] Performed By: #### 5 7021-8 ####[facility] LABORATORYCLIA [id number] [place] [id number] [place] Differential cell count method Nom (Bld) Auto Normal [facility] Comment on above: Order Comment: Speci men Type: BLOOD SPECIMENOrdering Facility: [facility] Address: [address] [place], [place] [address] Performed By: #### 5 7021-8 ####[facility] LABORATORYCLIA [id number] [place] [address] [place] Eosinophils (Bld) [#/Vol] 0.28 10*3/uL Normal <0.46 [facility] Comment on above: Order Comment: Speci men Type: BLOOD SPECIMENOrdering Facility: [facility] Address: [address] [place] [address] Performed By: #### 5 7021-8 ####[facility] LABORATORYCLIA [id number] [place] [address] [place] Eosinophils/100 WBC (Bld) 9.1 % Normal [facility] Comment on above: Order Comment: Speci men Type: BLOOD SPECIMENOrdering Facility: [facility] Address: [address] [place] [address] Performed By: #### 5 7021-8 ####[facility] LABORATORYCLIA [id number] [place] [address] [place] Erythrocyte distribution width (RBC) [Ratio] 12.6 % Normal 11.5-15.0 [facility] Comment on above: Order Comment: Speci men Type: BLOOD SPECIMENOrdering Facility: [facility] Address: [address] [place] [address] Performed By: #### 5 7021-8 ####[facility] LABORATORYCLIA [id number] [place] [address] [place] Hematocrit (Bld) [Volume fraction] 29.7 % Low 36.0-46.0 [facility] Comment on above: Order Comment: Speci men Type: BLOOD SPECIMENOrdering Facility: [facility] Address: [address] [place] [address] Performed By: #### 5 7021-8 ####[facility] LABORATORYCLIA [id number] [place] [address] [place] Hemoglobin (Bld) [Mass/Vol] 10.0 g/dL Low 11.5-15.5 [facility] Comment on above: Order Comment: Speci men Type: BLOOD SPECIMENOrdering Facility: [facility] Address: [address] [place] [address] Performed By: #### 5 7021-8 ####[facility] LABORATORYCLIA [id number] [place] [id number] [place] Immature granulocytes (Bld) [#/Vol] 10*3/uL Normal <0.10 [facility] Comment on above: Order Comment: Speci men Type: BLOOD SPECIMENOrdering Facility: [facility] Address: [address] [place] [address] Performed By: #### 5 7021-8 ####[facility] LABORATORYCLIA [id number] [address] Immature granulocytes/100 WBC (Bld) 0.3 % Normal [facility] Comment on above: Order Comment: Speci men Type: BLOOD SPECIMENOrdering Facility: [facility] Address: [address] [place] [address] Performed By: #### 5 7021-8 ####[facility] LABORATORYCLIA [id number] [address] [place] Lymphocytes (Bld) [#/Vol] 1.18 10*3/uL Normal 1.00-4.00 [facility] Comment on above: Order Comment: Speci men Type: BLOOD SPECIMENOrdering Facility: [facility] Address: [address] [place] [address] Performed By: #### 5 7021-8 ####[facility] LABORATORYCLIA [id number] [address] STATES [facility] Lymphocytes/100 WBC (Bld) 38.2 % Normal [facility] Comment on above: Order Comment: Speci men Type: BLOOD SPECIMENOrdering Facility: [facility] Address: [address] [place] [address] Performed By: #### 5 7021-8 ####[facility] LABORATORYCLIA [id number] [place] [address] [place] MCH (RBC) [Entitic mass] 29.9 pg Normal 26.0-34.0 [facility] Comment on above: Order Comment: Speci men Type: BLOOD SPECIMENOrdering Facility: [facility] Address: [address] [place] [address] Performed By: #### 5 7021-8 ####[facility] LABORATORYCLIA [id number] [place] [id number] [place] MCHC (RBC) [Mass/Vol] 33.7 g/dL Normal 30.5-36.0 [facility] Comment on above: Order Comment: Speci men Type: BLOOD SPECIMENOrdering Facility: [facility] Address: [address] [place] [address] Performed By: #### 5 7021-8 ####[facility] LABORATORYCLIA [id number] [place] [address] [place] MCV (RBC) [Entitic vol] 88.9 fL Normal 80.0-100.0 [facility] Comment on above: Order Comment: Speci men Type: BLOOD SPECIMENOrdering Facility: [facility] Address: [address] [place] [address] Performed By: #### 5 7021-8 ####[facility] LABORATORYCLIA [id number] [place] [address] [place] Monocytes (Bld) [#/Vol] 0.26 10*3/uL Normal <0.87 [facility] Comment on above: Order Comment: Speci men Type: BLOOD SPECIMENOrdering Facility: [facility] Address: [address] [place] [address] Performed By: #### 5 7021-8 ####[facility] LABORATORYCLIA [id number] [place] [address] [place] Monocytes/100 WBC (Bld) 8.4 % Normal [facility] Comment on above: Order Comment: Speci men Type: BLOOD SPECIMENOrdering Facility: [facility] Address: [address] [place] [address] Performed By: #### 5 7021-8 ####[facility] LABORATORYCLIA [id number] [place] [address] [place] Neutrophils (Bld) [#/Vol] 1.32 10*3/uL Low 1.45-7.50 [facility] Comment on above: Order Comment: Speci men Type: BLOOD SPECIMENOrdering Facility: [facility] Address: [address] [place] [address] Performed By: #### 5 7021-8 ####[facility] LABORATORYCLIA [id number] [place] [address] [place] Neutrophils/100 WBC (Bld) 42.7 % Normal [facility] Comment on above: Order Comment: Speci men Type: BLOOD SPECIMENOrdering Facility: [facility] Address: [address] [place] [address] Performed By: #### 5 7021-8 ####[facility] LABORATORYCLIA [id number] [address] [place] [facility] Nucleated RBC (Bld) [#/Vol] 10*3/uL Normal <0.01 [facility] Comment on above: Order Comment: Speci men Type: BLOOD SPECIMENOrdering Facility: [facility] Address: [address] [place] [address] Performed By: #### 5 7021-8 ####[facility] LABORATORYCLIA [id number] [address] [place] [facility] Nucleated RBC/100 WBC (Bld) [Ratio] 0.0 /100 WBC Normal [facility] Comment on above: Order Comment: Speci men Type: BLOOD SPECIMENOrdering Facility: [facility] Address: [address] [place] [address] Performed By: #### 5 7021-8 ####[facility] LABORATORYCLIA [id number] [address] [place] Platelet mean volume (Bld) [Entitic vol] 10.6 fL Normal 9.0-12.7 [facility] Comment on above: Order Comment: Speci men Type: BLOOD SPECIMENOrdering Facility: [facility] Address: [address] [place] [address] Performed By: #### 5 7021-8 ####[facility] LABORATORYCLIA [id number] [place] [address] [place] Platelets (Bld) [#/Vol] 210 10*3/uL Normal 150-400 [facility] Comment on above: Order Comment: Speci men Type: BLOOD SPECIMENOrdering Facility: [facility] Address: [address] [place] [address] Performed By: #### 5 7021-8 ####[facility] LABORATORYCLIA [id number] [place] [address] [place] RBC (Bld) [#/Vol] 3.34 10*6/uL Low 3.90-5.20 [facility] Comment on above: Order Comment: Speci men Type: BLOOD SPECIMENOrdering Facility: [facility] Address: [address] [place] [address] Performed By: #### 5 7021-8 ####[facility] LABORATORYCLIA [id number] [place] [address] [place] WBC (Bld) [#/Vol] 3.09 10*3/uL Low 3.70-11.00 [facility] Comment on above: Order Comment: Speci men Type: BLOOD SPECIMENOrdering Facility: [facility] Address: [address] [place] [address] Performed By: #### 5 7021-8 ####[facility] LABORATORYCLIA [id number] [place] [address] [place] Magnesium SerPl-mCncon 07-18 Magnesium [Mass/Vol] 2.0 mg/dL Normal 1.7-2.3 [facility] Comment on above: Order Comment: Speci men Type: BLOOD SPECIMENOrdering Facility: [facility] Address: [address] [place] [address] Performed By: #### 2 777-1, 73471-5, 93592-2 ####[facility] LABORATORYCLIA [id number] [place] [address] [place] NUTRITIONon 07-19-2023 NUTRITION Normal [facility] Phosphate SerPl-mCncon 07-18 Phosphate [Mass/Vol] 4.3 mg/dL Normal 2.7-4.8 [facility] Comment on above: Order Comment: Speci men Type: BLOOD SPECIMENOrdering Facility: [facility] Address: [address] [place] [address] Performed By: #### 2 777-1, , ####[facility] LABORATORYCLIA [id number] [place] [address] [place] ALLIED HEALTHon 07-18-2023 ALLIED HEALTH Normal [facility] ALLIED HEALTH Normal [facility] Basic metabolic 2000 panelon 07-18-2023 Anion gap [Moles/Vol] 9 mmol/L Normal 9-18 [facility] Comment on above: Order Comment: Speci men Type: BLOOD SPECIMENOrdering Facility: [facility] Address: [address] [place] [address] Performed By: #### 2 777-1, , ####[facility] LABORATORYCLIA [id number] [place] [address] [place] Calcium [Mass/Vol] 8.5 mg/dL Normal 8.5-10.2 [facility] Comment on above: Order Comment: Speci men Type: BLOOD SPECIMENOrdering Facility: [facility] Address: [address] [place] [address] Performed By: #### 2 777-1, , ####[facility] LABORATORYCLIA [id number] [place] [address] [place] Chloride [Moles/Vol] 108 mmol/L High 97-105 [facility] Comment on above: Order Comment: Speci men Type: BLOOD SPECIMENOrdering Facility: [facility] Address: [address] [place] [address] Performed By: #### 2 777-1, , ####[facility] LABORATORYCLIA [id number] [place] [address] [place] CO2 [Moles/Vol] 22 mmol/L Normal 22-30 [facility] Comment on above: Order Comment: Speci men Type: BLOOD SPECIMENOrdering Facility: [facility] Address: [address] [place] [address] Performed By: #### 2 777-1, 49136-2, ####[facility] LABORATORYCLIA [id number] [place] [address] [place] [facility] Creatinine [Mass/Vol] 0.76 mg/dL Normal 0.58-0.96 [facility] Comment on above: Order Comment: Geraldo men Type: BLOOD SPECIMENOrdering Facility: [facility] Address: [address] [place] [address] Performed By: #### 2 777-1, 64536-7, ####[facility] LABORATORYCLIA [id number] [place] [address] [facility] Creatinine and Glomerular filtration rate.predicted panel (S/P/Bld) 106 mL/min/1.73m??? Normal >=60 [facility] Comment on above: Order Comment: Geraldo marrero Type: BLOOD SPECIMENOrdering Facility: [facility] Address: [address] [place] [address] Result Comment: Jessica mated Glomerular Filtration Rate [...] actual GFR. Performed By: #### 2 777-1, 87564-2, ####[facility] LABORATORYCLIA [id number] [place] [address] [place] Glucose [Mass/Vol] 80 mg/dL Normal 74-99 [facility] Comment on above: Order Comment: Geraldo men Type: BLOOD SPECIMENOrdering Facility: [facility] Address: [address] [place] [address] Result Comment: The [place] [employer] (ADA) provides guidance for cutoff [...] Standards of Medical Care in Diabetes 2016, [place] [employer]. Diabetes Care. 2016.39(Suppl 1). Performed By: #### 2 777-1, , ####[facility] LABORATORYCLIA [id number] [place] [address] [place] Potassium [Moles/Vol] 4.1 mmol/L Normal 3.7-5.1 [facility] Comment on above: Order Comment: Geraldo marrero Type: BLOOD SPECIMENOrdering Facility: [facility] Address: [address] [place] [address] Performed By: #### 2 777-1, , ####[facility] HOSPITALCLIA [id number] [place] [address] [place] Sodium [Moles/Vol] 139 mmol/L Normal 136-144 [facility] Comment on above: Order Comment: Geraldo marrero Type: BLOOD SPECIMENOrdering Facility: [facility] Address: [address] [place] [address] Performed By: #### 2 777-1, , ####[facility] LABORATORYCLIA [id number] [place] [address] [place] Urea nitrogen [Mass/Vol] 7 mg/dL Normal 7-21 [facility] Comment on above: Order Comment: Lyssai elida Type: BLOOD SPECIMENOrdering Facility: [facility] Address: [address] [place] [address] Performed By: #### 2 777-1, , ####[facility] LABORATORYCLIA [id number] [place] [address] [place] CBC W Auto Differential pane l (Bld)on 07-18-2023 Basophils (Bld) [#/Vol] 0.06 10*3/uL Normal <0.11 [facility] Comment on above: Order Comment: Speci men Type: BLOOD SPECIMENOrdering Facility: [facility] Address: [address] [place] [address] Performed By: #### 5 7021-8 ####[facility] LABORATORYCLIA [id number] [place] [address] [place] Basophils/100 WBC (Bld) 1.6 % Normal [facility] Comment on above: Order Comment: Speci men Type: BLOOD SPECIMENOrdering Facility: [facility] Address: [address] [place] [address] Performed By: #### 5 7021-8 ####[facility] LABORATORYCLIA [id number] [place] [address] [place] Differential cell count method Nom (Bld) Auto Normal [facility] Comment on above: Order Comment: Speci men Type: BLOOD SPECIMENOrdering Facility: [facility] Address: [address] [place] [address] Performed By: #### 5 7021-8 ####[facility] LABORATORYCLIA [id number] [place] [address] [place] Eosinophils (Bld) [#/Vol] 0.33 10*3/uL Normal <0.46 [facility] Comment on above: Order Comment: Speci men Type: BLOOD SPECIMENOrdering Facility: [facility] Address: [address] [place] [address] Performed By: #### 5 7021-8 ####[facility] LABORATORYCLIA [id number] [place] [address] [place] Eosinophils/100 WBC (Bld) 8.8 % Normal [facility] Comment on above: Order Comment: Speci men Type: BLOOD SPECIMENOrdering Facility: [facility] Address: [address] [place] [address] Performed By: #### 5 7021-8 ####[facility] LABORATORYCLIA [id number] [place] [address] [place] Erythrocyte distribution width (RBC) [Ratio] 12.9 % Normal 11.5-15.0 [facility] Comment on above: Order Comment: Speci men Type: BLOOD SPECIMENOrdering Facility: [facility] Address: [address] [place] [address] Performed By: #### 5 7021-8 ####[facility] LABORATORYCLIA [id number] [place] [address] [place] Hematocrit (Bld) [Volume fraction] 31.1 % Low 36.0-46.0 [facility] Comment on above: Order Comment: Speci men Type: BLOOD SPECIMENOrdering Facility: [facility] Address: [address] [place] [address] Performed By: #### 5 7021-8 ####[facility] LABORATORYCLIA [id number] [place] [address] [place] Hemoglobin (Bld) [Mass/Vol] 10.2 g/dL Low 11.5-15.5 [facility] Comment on above: Order Comment: Speci men Type: BLOOD SPECIMENOrdering Facility: [facility] Address: [address] [place] [address] Performed By: #### 5 7021-8 ####[facility] LABORATORYCLIA [id number] [address] [place] Immature granulocytes (Bld) [#/Vol] 10*3/uL Normal <0.10 [facility] Comment on above: Order Comment: Speci men Type: BLOOD SPECIMENOrdering Facility: [facility] Address: [address] [place] [address] Performed By: #### 5 7021-8 ####[facility] LABORATORYCLIA [id number] [place] [address] [place] Immature granulocytes/100 WBC (Bld) 0.0 % Normal [facility] Comment on above: Order Comment: Speci men Type: BLOOD SPECIMENOrdering Facility: [facility] Address: [address] [place] [address] Performed By: #### 5 7021-8 ####[facility] LABORATORYCLIA [id number] [place] [address] [place] Lymphocytes (Bld) [#/Vol] 1.40 10*3/uL Normal 1.00-4.00 [facility] Comment on above: Order Comment: Speci men Type: BLOOD SPECIMENOrdering Facility: [facility] Address: [address] [place] [address] Performed By: #### 5 7021-8 ####[facility] LABORATORYCLIA [id number] [place] [address] [place] Lymphocytes/100 WBC (Bld) 37.2 % Normal [facility] Comment on above: Order Comment: Speci men Type: BLOOD SPECIMENOrdering Facility: [facility] Address: [address] [place] [address] Performed By: #### 5 7021-8 ####[facility] LABORATORYCLIA [id number] [place] [address] [place] MCH (RBC) [Entitic mass] 30.4 pg Normal 26.0-34.0 [facility] Comment on above: Order Comment: Speci men Type: BLOOD SPECIMENOrdering Facility: [facility] Address: [address] [place] [address] Performed By: #### 5 7021-8 ####[facility] LABORATORYCLIA [id number] [place] [address] [place] MCHC (RBC) [Mass/Vol] 32.8 g/dL Normal 30.5-36.0 [facility] Comment on above: Order Comment: Speci men Type: BLOOD SPECIMENOrdering Facility: [facility] Address: [address] [place] [address] Performed By: #### 5 7021-8 ####[facility] LABORATORYCLIA [id number] [place] [address] [place] MCV (RBC) [Entitic vol] 92.6 fL Normal 80.0-100.0 [facility] Comment on above: Order Comment: Speci men Type: BLOOD SPECIMENOrdering Facility: [facility] Address: [address] [place] [address] Performed By: #### 5 7021-8 ####[facility] LABORATORYCLIA [id number] [place] [address] [place] Monocytes (Bld) [#/Vol] 0.42 10*3/uL Normal <0.87 [facility] Comment on above: Order Comment: Speci men Type: BLOOD SPECIMENOrdering Facility: [facility] Address: [address] [place] [address] Performed By: #### 5 7021-8 ####[facility] LABORATORYCLIA [id number] [place] [address] [place] Monocytes/100 WBC (Bld) 11.2 % Normal [facility] Comment on above: Order Comment: Speci men Type: BLOOD SPECIMENOrdering Facility: [facility] Address: [address] [place] [address] Performed By: #### 5 7021-8 ####[facility] LABORATORYCLIA [id number] [place] [id number] [place] Neutrophils (Bld) [#/Vol] 1.55 10*3/uL Normal 1.45-7.50 [facility] Comment on above: Order Comment: Speci men Type: BLOOD SPECIMENOrdering Facility: [facility] Address: [address] [place] [address] Performed By: #### 5 7021-8 ####[facility] LABORATORYCLIA [id number] [place] [address] [place] Neutrophils/100 WBC (Bld) 41.2 % Normal [facility] Comment on above: Order Comment: Speci men Type: BLOOD SPECIMENOrdering Facility: [facility] Address: [address] [place] [address] Performed By: #### 5 7021-8 ####[facility] LABORATORYCLIA [id number] [place] [address] [place] Nucleated RBC (Bld) [#/Vol] 10*3/uL Normal <0.01 [facility] Comment on above: Order Comment: Speci men Type: BLOOD SPECIMENOrdering Facility: [facility] Address: [address] [place] [address] Performed By: #### 5 7021-8 ####[facility] LABORATORYCLIA [id number] [place] [id number] [place] Nucleated RBC/100 WBC (Bld) [Ratio] 0.0 /100 WBC Normal [facility] Comment on above: Order Comment: Speci men Type: BLOOD SPECIMENOrdering Facility: [facility] Address: [address] [place] [address] Performed By: #### 5 7021-8 ####[facility] LABORATORYCLIA [id number] [place] [address] [place] Platelet mean volume (Bld) [Entitic vol] 11.0 fL Normal 9.0-12.7 [facility] Comment on above: Order Comment: Speci men Type: BLOOD SPECIMENOrdering Facility: [facility] Address: [address] [place] [address] Performed By: #### 5 7021-8 ####[facility] LABORATORYCLIA [id number] [place] [address] [place] Platelets (Bld) [#/Vol] 212 10*3/uL Normal 150-400 [facility] Comment on above: Order Comment: Speci men Type: BLOOD SPECIMENOrdering Facility: [facility] Address: [address] [place] [address] Performed By: #### 5 7021-8 ####[facility] LABORATORYCLIA [id number] [place] [address] [place] RBC (Bld) [#/Vol] 3.36 10*6/uL Low 3.90-5.20 [facility] Comment on above: Order Comment: Speci men Type: BLOOD SPECIMENOrdering Facility: [facility] Address: [address] [place] [address] Performed By: #### 5 7021-8 ####[facility] LABORATORYCLIA [id number] [place] [address] [place] WBC (Bld) [#/Vol] 3.76 10*3/uL Normal 3.70-11.00 [facility] Comment on above: Order Comment: Speci men Type: BLOOD SPECIMENOrdering Facility: [facility] Address: [address] [place] [address] Performed By: #### 5 7021-8 ####[facility]ORATORYCLIA [id number] [place] [id number] [place] Magnesium SerPl-mCncon 07-17 Magnesium [Mass/Vol] 1.9 mg/dL Normal 1.7-2.3 [facility] Comment on above: Order Comment: Speci men Type: BLOOD SPECIMENOrdering Facility: [facility] Address: [address] [place] [address] Performed By: #### 2 777-1, 23111-5, ####[facility]ORATORYCLIA [id number] [place] [id number] [place] Phosphate SerPl-mCncon 07-17 Phosphate [Mass/Vol] 4.7 mg/dL Normal 2.7-4.8 [facility] Comment on above: Order Comment: Speci men Type: BLOOD SPECIMENOrdering Facility: [facility] Address: [address] [place] [address] Performed By: #### 2 777-1, 96734-4, ####[facility]ORATORYCLIA [id number] [place] [id number] [place] XR CHEST 1V FRONTAL PORTon 0 07-18-2023 XR CHEST 1V FRONTAL PORT Normal [facility] XR SMALL BOWEL SERIESon 06-0 XR SMALL BOWEL SERIES Normal [facility] Capillary blood glucose brie urement by glucometer (mass/volume)Ordered By: Camden Rodriguez on 07-17-2023 Glucose [Mass/Vol] 86 mg/dL [facility] Comment on above: Random Glucose Refer ence Range is dependent on time and content of last meal. Glucose of more than 200 mg/dL in a nonstressed, ambulatory subject supports the diagnosis of Diabetes Mellitus. Result Comment: [place] om Glucose Reference Range is dependent on time and content of last meal. Glucose of more than 200 mg/dL in a nonstressed, ambulatory subject supports the diagnosis of Diabetes Mellitus. PERFORMED BY: [place] [id number] PATHOLOGIST TALENT ACQUISITION ASSISTANT BAUTISTA BAKER M.D. Performed By: #### C BC, BMP, HEPATIC, LIPASE #### [place] [id number] [facility] Glucose Poct Glucometerson 0 07-17-2023 Commemt1 Glu2: Cleaned Meter Normal [facility] Comment on above: Result Comment: PERF ORMED BY: [facility] [address] [place] [id number] PATHOLOGIST TALENT ACQUISITION ASSISTANT BAUTISTA BAKER M.D. Performed By: #### C BC, BMP, HEPATIC, LIPASE #### [address] [address] [facility] Glucose [Mass/Vol] 90 mg/dL Normal [facility] Comment on above: Result Comment: [place] Glucose Reference Range is dependent on time and content of last meal. Glucose of more than 200 mg/dL in a nonstressed, ambulatory subject supports the diagnosis of Diabetes Mellitus. Performed By: #### C BC, BMP, HEPATIC, LIPASE #### [place] [id number] [facility] HISTORY PHYSICALon HISTORY PHYSICAL Normal [facility] NURSING PROGon 07-17-2023 NURSING PROG Normal [facility] No Panel InformationOrdered By: Camden Rodriguez on 07-17-2023 Bedside Glucose Comment Glu2: cleaned meter [facility] Alanine aminotransferase [En zymatic activity/volume] in Serum or PlasmaOrdered By: Shaan Sabillon on 07-16-2023 ALT [Catalytic activity/Vol] 39 U/L 7-52 [facility] Comment on above: Performed By: #### C BC, BMP, HEPATIC, LIPASE #### [place] [id number] [facility] Albumin [Mass/volume] in Ser um or Plasma by Bromocresol green (BCG) dye binding methoOrdered By: Shaan Sabillon on 07-16-2023 Albumin BCG dye [Mass/Vol] 4.3 g/dL 3.5-5.7 [facility] Alkaline phosphatase [Enzyma tic activity/volume] in Serum or PlasmaOrdered By: Shaan Sabillon on 07-16-2023 ALP [Catalytic activity/Vol] 57 U/L 34-104 [facility] Comment on above: Performed By: #### C BC, BMP, HEPATIC, LIPASE #### [address] Aspartate aminotransferase [ Enzymatic activity/volume] in Serum or PlasmaOrdered By: Shaan Sabillon on 07-16-2023 AST [Catalytic activity/Vol] 43 U/L High 13-39 [facility] Comment on above: Performed By: #### C BC, BMP, HEPATIC, LIPASE #### [address] Automated basophil %Ordered By: Shaan Sabillon on 07-16-2023 Basophils/100 WBC (Bld) 0.7 % . [facility] Comment on above: Performed By: #### C BC, BMP, HEPATIC, LIPASE #### [address] Automated basophil countOrde red By: Shaan Sabillon on 07-16-2023 Basophils (Bld) [#/Vol] 0.0 10*3/uL 0.0-0.2 [facility] Comment on above: Result Comment: PERF ORMED BY: [place] [address] PATHOLOGIST TALENT ACQUISITION ASSISTANT BAUTISTA BAKER M.D. Performed By: #### C BC, BMP, HEPATIC, LIPASE #### [address] Automated blood monocyte cou ntOrdered By: Shaan Sabillon on 07-16-2023 Monocytes (Bld) [#/Vol] 0.3 10*3/uL 0.0-0.8 [facility] Comment on above: Performed By: #### C BC, BMP, HEPATIC, LIPASE #### [address] Automated eosinophil %Ordere d By: Shaan Sabillon on 05-31-2024 Eosinophils/100 WBC (Bld) 0.5 % . [facility] Comment on above: Performed By: #### C BC, BMP, HEPATIC, LIPASE #### [address] Automated eosinophil countOr dered By: Shaan Sabillon on 07-16-2023 Eosinophils (Bld) [#/Vol] 0.0 10*3/uL 0.0-0.45 [facility] Comment on above: Performed By: #### C BC, BMP, HEPATIC, LIPASE #### [address] Automated monocyte %Ordered By: Shaan Sabillon on 07-16-2023 Monocytes/100 WBC (Bld) 4.5 % . [facility] Comment on above: Performed By: #### C BC, BMP, HEPATIC, LIPASE #### [address] Automated neutrophil %Ordere d By: Shaan Sabillon on 07-16-2023 Neutrophils/100 WBC (Bld) 75.6 % . [facility] Comment on above: Performed By: #### C BC, BMP, HEPATIC, LIPASE #### [address] Basic Metabolic Panelon 06-17 Creatinine Clr Calc Pharmacy 117.42 Normal [facility] Comment on above: Performed By: #### C BC, BMP, HEPATIC, LIPASE #### [address] GFR/1.73 sq M.predicted MDRD (S/P/Bld) [Vol rate/Area] mL/min/{1.73_m2} Normal [facility] Comment on above: Performed By: #### C BC, BMP, HEPATIC, LIPASE #### [address] Bilirubin Test strip Ql (U)O rdered By: Shaan Sabillon on 07-16-2023 Bilirubin Ql (U) Negative Negative [facility] Bilirubin.direct [Mass/volum e] in Serum or PlasmaOrdered By: Shaan Sabillon on 07-16-2023 Bilirubin.direct [Mass/Vol] 0.10 mg/dL 0.03-0.18 [facility] Bilirubin.total [Mass/volume ] in Serum or PlasmaOrdered By: Shaan Sabillon on 07-16-2023 Bilirubin [Mass/Vol] 0.6 mg/dL 0.3-1.0 [facility] Comment on above: Performed By: #### C BC, BMP, HEPATIC, LIPASE #### [facility] [address] abdomen pelvis w conon CT abdomen pelvis w con [facility] [place] [address] [place] [address] CT Scan Report Signed Patient: Abbey Garcia MR#: [id number] : 1990 Acct:[id number] Age/Sex: 33 / F ADM Date: 07/16/23 Loc: ER Room: Type: [facility] ER Attending Dr: Copies to: Shaan Sabillon [...] Medel Jr., DRenettaORenetta07/16/2023 4:09 PM Dictation Location: [place] [address] Transcribed By: [facility] 07/16/23 1609 Dictated By: Cornel Medel Jr, DO 07/16/23 1606 Signed By: 07/16/23 1609 Normal [facility] Calcium [Mass/volume] in Ser um or PlasmaOrdered By: Shaan Sabillon on 07-16-2023 Calcium [Mass/Vol] 8.9 mg/dL 8.6-10.3 [facility] Comment on above: Performed By: #### C BC, BMP, HEPATIC, LIPASE #### [address] Carbon dioxide, total [Moles /volume] in Serum or PlasmaOrdered By: Shaan Sabillon on 07-16-2023 CO2 [Moles/Vol] 24.2 mmol/L 21.0-31.0 [facility] Comment on above: Performed By: #### C BC, BMP, HEPATIC, LIPASE #### [place] [address] [place] Chloride [Moles/volume] in S elder or PlasmaOrdered By: Shaan Sabillon on 07-16-2023 Chloride [Moles/Vol] 107 mmol/L 98-107 [facility] Comment on above: Performed By: #### C BC, BMP, HEPATIC, LIPASE #### [facility] [address] [place] [address] [place] Color of Urine by AutoOrdere d By: Shaan Sabillon on 07-16-2023 Color (U) Yellow Yellow [facility] Comment on above: Order Comment: Name Collection Type:: Clean-Voided Midstream Performed By: #### C BC, BMP, HEPATIC, LIPASE #### [place] [address] [place] Complete Blood Count Auto Di ffon 07-16-2023 Mean Corpuscular HGB Conc 34.2 g/dL Normal 32.0-35.0 [facility] Comment on above: Performed By: #### C BC, BMP, HEPATIC, LIPASE #### [address] Monocytes/100 WBC (Bld) 16.79 % Normal 0.00-20.00 [facility] Comment on above: Performed By: #### C BC, BMP, HEPATIC, LIPASE #### [address] NRBC% 0.0 /100{WBC} Normal 0-0.5 [facility] Comment on above: Performed By: #### C BC, BMP, HEPATIC, LIPASE #### [address] Creatinine [Mass/volume] in Serum or PlasmaOrdered By: Shaan Sabillon on 07-16-2023 Creatinine [Mass/Vol] 0.72 mg/dL 0.60-1.20 [facility] Comment on above: Performed By: #### C BC, BMP, HEPATIC, LIPASE #### [address] Erythrocyte distribution wid th [Ratio] by Automated countOrdered By: Shaan Sabillon on 07-16-2023 Erythrocyte distribution width (RBC) [Ratio] 14.4 % 11.9-15.3 [facility] Comment on above: Performed By: #### C BC, BMP, HEPATIC, LIPASE #### [address] Erythrocytes [#/volume] in B lood by Automated countOrdered By: Shaan Sabillon on 07-16-2023 RBC (Bld) [#/Vol] 3.67 10*6/uL 3.60-5.00 [facility] Comment on above: Performed By: #### C BC, BMP, HEPATIC, LIPASE #### [address] Glucose [Mass/volume] in Ser um or PlasmaOrdered By: Shaan Sabillon on 07-16-2023 Glucose [Mass/Vol] 82 mg/dL 70-100 [facility] Comment on above: ADA recommended refe rence rangeRandom Glucose Reference Range is dependent on time and content of last meal. Glucose of more than 200 mg/dL in a nonstressed, ambulatory subject supports the diagnosis of Diabetes Mellitus. Result Comment: [place] om Glucose Reference Range is dependent on time and content of last meal. Glucose of more than 200 mg/dL in a nonstressed, ambulatory subject supports the diagnosis of Diabetes Mellitus. ADA recommended reference range Performed By: #### C BC, BMP, HEPATIC, LIPASE #### [address] HCG ( test) IA.rapi d Ql (U)Ordered By: Shaan Sabillon on 07-16-2023 HCG ( test) Ql (U) Negative [facility] HCG,Urineon 07-16-2023 Beta HCG ( test) Ql (U) Negative Normal [facility] Comment on above: Order Comment: Name Collection Type:: Clean-Voided Midstream Result Comment: PERF ORMED BY: [place] [address] PATHOLOGIST TALENT ACQUISITION ASSISTANT BAUTISTA BAKER M.D. Performed By: #### C BC, BMP, HEPATIC, LIPASE #### [address] Hematocrit [Volume Fraction] of Blood by Automated countOrdered By: Shaan Sabillon on 07-16-2023 Hematocrit (Bld) [Volume fraction] 32.8 % Low 34.0-46.4 [facility] Comment on above: Performed By: #### C BC, BMP, HEPATIC, LIPASE #### [address] Hemoglobin [Mass/volume] in BloodOrdered By: Shaan Sabillon on 07-16-2023 Hemoglobin (Bld) [Mass/Vol] 11.2 g/dL Low 11.8-15.4 [facility] Comment on above: Performed By: #### C BC, BMP, HEPATIC, LIPASE #### [address] Hepatic Panelon 07-16-2023 Albumin [Mass/Vol] 4.3 g/dL Normal 3.5-5.7 [facility] Comment on above: Performed By: #### C BC, BMP, HEPATIC, LIPASE #### [facility] [address] Bilirubin,Indirect 0.5 mg/dL Normal [facility] Comment on above: Performed By: #### C BC, BMP, HEPATIC, LIPASE #### [facility] [address] Bilirubin.indirect [Mass/Vol] 0.10 mg/dL Normal 0.03-0.18 [facility] Comment on above: Performed By: #### C BC, BMP, HEPATIC, LIPASE #### [address] Ketones Auto test strip (U) [Mass/Vol]Ordered By: Shaan Sabillon on 07-16-2023 Ketones (U) [Mass/Vol] Negative Negative [facility] Leukocytes [#/volume] correc darvin for nucleated erythrocytes in Blood by Automated counOrdered By: Shaan Sabillon on 07-16-2023 WBC corrected for nucl RBC Auto (Bld) [#/Vol] 6.9 10*3/uL 3.8-11.6 [facility] Leukocytes [#/volume] in Blo od by Automated countOrdered By: Shaan Sabillon on 07-16-2023 WBC (Bld) [#/Vol] 6.9 10*3/uL 3.8-11.6 [facility] Comment on above: Performed By: #### C BC, BMP, HEPATIC, LIPASE #### [address] Lipase [Enzymatic activity/v olume] in Serum or PlasmaOrdered By: Shaan Sabillon on 07-16-2023 Lipase [Catalytic activity/Vol] 45.0 U/L 11.0-82.0 [facility] Comment on above: Result Comment: PERF ORMED BY: [place] [address] PATHOLOGIST TALENT ACQUISITION ASSISTANT BAUTISTA BAKER M.D. Performed By: #### C BC, BMP, HEPATIC, LIPASE #### [facility] [address] [place] [address] Lymphocytes [#/volume] in Bl ood by Automated countOrdered By: Shaan Sabillon on 07-16-2023 Lymphocytes (Bld) [#/Vol] 1.3 10*3/uL 1.00-4.8 [facility] Comment on above: Performed By: #### C BC, BMP, HEPATIC, LIPASE #### [address] Lymphocytes/100 leukocytes i n Blood by Automated countOrdered By: Shaan Sabillon on 07-16-2023 Lymphocytes/100 WBC (Bld) 18.7 % . [facility] Comment on above: Performed By: #### C BC, BMP, HEPATIC, LIPASE #### [address] MCH [Entitic mass] by Automa darvin countOrdered By: Shaan Sabillon on 07-16-2023 MCH (RBC) [Entitic mass] 30.5 pg 24.7-34.3 [facility] Comment on above: Performed By: #### C BC, BMP, HEPATIC, LIPASE #### [address] MCHC Auto (RBC) [Mass/Vol]Or dered By: Shaan Sabillon on 07-16-2023 MCHC (RBC) [Mass/Vol] 34.2 g/dL 32.0-35.0 [facility] MCV [Entitic volume] by Auto mated countOrdered By: Shaan Sabillon on 07-16-2023 MCV (RBC) [Entitic vol] 89.2 fL 80-100 [facility] Comment on above: Performed By: #### C BC, BMP, HEPATIC, LIPASE #### [address] Monocyte distribution width [Entitic volume] in Blood by AutomatedOrdered By: Shaan Sabillon on 07-16-2023 Monocyte distribution width Auto (Bld) [Entitic vol] 16.79 % 0.00-20.00 [facility] Neutrophils [#/volume] in Bl ood by Automated countOrdered By: Shaan Sabillon on 07-16-2023 Neutrophils (Bld) [#/Vol] 5.2 10*3/uL 1.8-7.7 [facility] Comment on above: Performed By: #### C BC, BMP, HEPATIC, LIPASE #### [facility] [address] Nitrite Test strip Ql (U)Ord ered By: Shaan Sabillon on 07-16-2023 Nitrite Ql (U) Negative Negative [facility] No Panel InformationOrdered By: Shaan Sabillon on 07-16-2023 Estimated GFR (CKD-EPI) > 60.0 mL/Min [facility] Creatinine Clearance (Chem 117.42 [facility] Nucleated erythrocytes [Pres ence] in Blood by Automated countOrdered By: Shaan Sabillon on 07-16-2023 Nucleated RBC Auto Ql (Bld) 0.0 /100{WBC} 0-0.5 [facility] Platelet mean volume [Entiti c volume] in Blood by Automated countOrdered By: Shaan Sabillon on 07-16-2023 Platelet mean volume (Bld) [Entitic vol] 9.0 fL 6.3-10.7 [facility] Comment on above: Performed By: #### C BC, BMP, HEPATIC, LIPASE #### [facility] [address] [place] [address] Platelets [#/volume] in Bloo d by Automated countOrdered By: Shaan Sabillon on 07-16-2023 Platelets (Bld) [#/Vol] 282 10*3/uL 150-450 [facility] Comment on above: Performed By: #### C BC, BMP, HEPATIC, LIPASE #### [facility] [address] [place] [address] [place] Potassium [Moles/volume] in Serum or PlasmaOrdered By: Shaan Sabillon on 07-16-2023 Potassium [Moles/Vol] 3.7 mmol/L 3.5-5.1 [facility] Comment on above: Performed By: #### C BC, BMP, HEPATIC, LIPASE #### [address] Protein Auto test strip (U) [Mass/Vol]Ordered By: Shaan Sabillon on 07-16-2023 Protein (U) [Mass/Vol] Negative Negative [facility] Protein [Mass/volume] in Ser um or PlasmaOrdered By: Shaan Sabillon on 07-16-2023 Protein [Mass/Vol] 6.8 g/dL 6.4-8.9 [facility] Comment on above: Performed By: #### C BC, BMP, HEPATIC, LIPASE #### [address] Serum globulin measurement b y calculation (mass/volume)Ordered By: Shaan Sabillon on 07-16-2023 Globulin (S) [Mass/Vol] 2.5 g/dL [facility] Comment on above: Performed By: #### C BC, BMP, HEPATIC, LIPASE #### [address] Serum or plasma albumin/glob ulin mass ratioOrdered By: Shaan Sabillon on 07-16-2023 Albumin/Globulin [Mass ratio] 1.7 {ratio} [facility] Comment on above: Performed By: #### C BC, BMP, HEPATIC, LIPASE #### [address] Serum or plasma anion gap de terminationOrdered By: Shaan Sabillon on 07-16-2023 Anion gap [Moles/Vol] 9.5 mmol/L 6.0-15.0 [facility] Comment on above: Performed By: #### C BC, BMP, HEPATIC, LIPASE #### [address] Serum or plasma non-glucuron idated bilirubin measurement (mass/volume)Ordered By: Shaan Sabillon on 07-16-2023 Bilirubin.indirect [Mass/Vol] 0.5 mg/dL [facility] Sodium [Moles/volume] in Ser um or PlasmaOrdered By: Shaan Sabillon on 07-16-2023 Sodium [Moles/Vol] 137 mmol/L 136-145 [facility] Comment on above: Performed By: #### C BC, BMP, HEPATIC, LIPASE #### [address] Specific gravity Auto test s trip (U) [Rel density]Ordered By: Shaan Sabillon on 07-16-2023 Specific gravity (U) [Rel density] 1.006 1.001-1.030 [facility] Urea nitrogen [Mass/volume] in Serum or PlasmaOrdered By: Shaan Sabillon on 07-16-2023 Urea nitrogen [Mass/Vol] 14 mg/dL 09-08 [facility] Comment on above: Performed By: #### C BC, BMP, HEPATIC, LIPASE #### [address] Urinalysison 07-16-2023 Appearance (U) Clear Normal Clear [facility] Comment on above: Order Comment: Name Collection Type:: Clean-Voided Midstream Performed By: #### C BC, BMP, HEPATIC, LIPASE #### [address] Bilirubin,Urine Negative Normal Negative [facility] Comment on above: Order Comment: Name Collection Type:: Clean-Voided Midstream Performed By: #### C BC, BMP, HEPATIC, LIPASE #### [address] Glucose Ql (U) Normal Normal Normal [facility] Comment on above: Order Comment: Name Collection Type:: Clean-Voided Midstream Performed By: #### C BC, BMP, HEPATIC, LIPASE #### [address] Ketones Ql (U) Negative Normal Negative [facility] Comment on above: Order Comment: Name Collection Type:: Clean-Voided Midstream Performed By: #### C BC, BMP, HEPATIC, LIPASE #### [address] Leukocyte esterase Test strip Ql (U) Negative Normal Negative [facility] Comment on above: Order Comment: Name Collection Type:: Clean-Voided Midstream Performed By: #### C BC, BMP, HEPATIC, LIPASE #### [facility] [address] [place] [address] [place] Nitrite,Urine Negative Normal Negative [facility] Comment on above: Order Comment: Name Collection Type:: Clean-Voided Midstream Performed By: #### C BC, BMP, HEPATIC, LIPASE #### [facility] [address] [place] [address] [place] Occult Blood,Urine Negative Normal Negative [facility] Comment on above: Order Comment: Name Collection Type:: Clean-Voided Midstream Performed By: #### C BC, BMP, HEPATIC, LIPASE #### [facility] [address] Protein,Urine Negative Normal Negative [facility] Comment on above: Order Comment: Name Collection Type:: Clean-Voided Midstream Performed By: #### C BC, BMP, HEPATIC, LIPASE #### [address] Specificy [place],Urine 1.006 Normal 1.001-1.030 [facility] Comment on above: Order Comment: Name Collection Type:: Clean-Voided Midstream Performed By: #### C BC, BMP, HEPATIC, LIPASE #### [address] Urobilinogen,Urine Normal Normal Normal [facility] Comment on above: Order Comment: Name Collection Type:: Clean-Voided Midstream Performed By: #### C BC, BMP, HEPATIC, LIPASE #### [address] Urine clarity by refractomet ry automatedOrdered By: Shaan Sabillon on 07-16-2023 Clarity Refractometry automated (U) Clear Clear [facility] Urine glucose measurement by automated test strip (mass/volume)Ordered By: Shaan Sabillon on 07-16-2023 Glucose Auto test strip (U) [Mass/Vol] Normal mg/dL Normal [facility] Urine hemoglobin detection b y automated test stripOrdered By: Shaan Sabillon on 07-16-2023 Hemoglobin Auto test strip Ql (U) Negative Negative [facility] Urine leukocyte esterase det ection by automated test stripOrdered By: Shaan Sabillon on 07-16-2023 Leukocyte esterase Auto test strip Ql (U) Negative Negative [facility] Urine pH measurement by auto mated test stripOrdered By: Shaan Sabillon on 07-16-2023 pH (U) 7.5 [pH] 5.0-9.0 [facility] Comment on above: Order Comment: Name Collection Type:: Clean-Voided Midstream Performed By: #### C BC, BMP, HEPATIC, LIPASE #### [facility] [address] Urobilinogen Auto test strip (U) [Mass/Vol]Ordered By: Shaan Sabillon on 07-16-2023 Urobilinogen (U) [Mass/Vol] Normal mg/dL Normal [facility] CNPNon 07-13-2023 CNPN Normal [facility] Basic metabolic 2000 panelon 07-06-2023 Anion gap [Moles/Vol] 11 mmol/L Normal 9-18 [facility] Comment on above: Order Comment: Speci men Type: BLOOD SPECIMENOrdering Facility: [facility] Address: [address] [place] [address] Performed By: #### 2 4321-2 ####[facility] [id number] [place] [address] [place] Calcium [Mass/Vol] 8.7 mg/dL Normal 8.5-10.2 [facility] Comment on above: Order Comment: Speci men Type: BLOOD SPECIMENOrdering Facility: [facility] Address: [address] [place] [address] Performed By: #### 2 4321-2 ####[facility] [id number] [place] [address] [place] Chloride [Moles/Vol] 110 mmol/L High 97-105 [facility] Comment on above: Order Comment: Speci men Type: BLOOD SPECIMENOrdering Facility: [facility] Address: [address] [place] [address] Performed By: #### 2 4321-2 ####[facility] [id number] [place] [address] [place] CO2 [Moles/Vol] 20 mmol/L Low 22-30 [facility] Comment on above: Order Comment: Speci men Type: BLOOD SPECIMENOrdering Facility: [facility] Address: [address] [place] [address] Performed By: #### 2 4321-2 ####[facility] [id number] [place] [address] [place] Creatinine [Mass/Vol] 0.64 mg/dL Normal 0.58-0.96 [facility] Comment on above: Order Comment: Speci men Type: BLOOD SPECIMENOrdering Facility: [facility] Address: [address] [place] [address] Performed By: #### 2 4321-2 ####[facility] [id number] [place] [address] [place] Creatinine and Glomerular filtration rate.predicted panel (S/P/Bld) 119 mL/min/1.73m??? Normal >=60 [facility] Comment on above: Order Comment: Speci men Type: BLOOD SPECIMENOrdering Facility: [facility] Address: [address] [place] [address] Result Comment: Jessica mated Glomerular Filtration Rate [...] actual GFR. Performed By: #### 2 4321-2 ####[facility] [id number] [place] [address] [place] Glucose [Mass/Vol] 89 mg/dL Normal 74-99 [facility] Comment on above: Order Comment: Speci men Type: BLOOD SPECIMENOrdering Facility: [facility] Address: [address] [place] [address] Result Comment: The [place] Diabetes Association (ADA) provides guidance for cutoff [...] Standards of Medical Care in Diabetes 2016, [place] [employer]. Diabetes Care. 2016.39(Suppl 1). Performed By: #### 2 4321-2 ####[facility] [id number] [place] [address] [place] Potassium [Moles/Vol] 3.9 mmol/L Normal 3.7-5.1 [facility] Comment on above: Order Comment: Speci men Type: BLOOD SPECIMENOrdering Facility: [facility] Address: [address] [place] [id number] Performed By: #### 2 4321-2 ####[facility] [id number] [place] [address] [place] Sodium [Moles/Vol] 141 mmol/L Normal 136-144 [facility] Comment on above: Order Comment: Speci men Type: BLOOD SPECIMENOrdering Facility: [facility] Address: [address] [place] [address] Performed By: #### 2 4321-2 ####[facility] [id number] [place] [address] [place] Urea nitrogen [Mass/Vol] 14 mg/dL Normal 7-21 [facility] Comment on above: Order Comment: Speci men Type: BLOOD SPECIMENOrdering Facility: [facility] Address: [address] [place] [id number] Performed By: #### 2 4321-2 ####[facility] [id number] [place] [address] [place] CBC W Auto Differential pane l (Bld)on 07-06-2023 Basophils (Bld) [#/Vol] 10*3/uL Normal <0.11 [facility] Comment on above: Order Comment: Speci men Type: BLOOD SPECIMENOrdering Facility: [facility] Address: [address] [place] [address] Performed By: #### 5 7021-8 ####[facility] [id number] [place] [address] [place] Basophils/100 WBC (Bld) 0.5 % Normal [facility] Comment on above: Order Comment: Speci men Type: BLOOD SPECIMENOrdering Facility: [facility] Address: [address] [place] [address] Performed By: #### 5 7021-8 ####[facility] [id number] [place] [address] [place] Differential cell count method Nom (Bld) Auto Normal [facility] Comment on above: Order Comment: Speci men Type: BLOOD SPECIMENOrdering Facility: [facility] Address: [address] [place] [address] Performed By: #### 5 7021-8 ####[facility] [id number] [place] [address] [place] Eosinophils (Bld) [#/Vol] 10*3/uL Normal <0.46 [facility] Comment on above: Order Comment: Speci men Type: BLOOD SPECIMENOrdering Facility: [facility] Address: [address] [place] [address] Performed By: #### 5 7021-8 ####[facility] [id number] [place] [address] [place] Eosinophils/100 WBC (Bld) 0.2 % Normal [facility] Comment on above: Order Comment: Speci men Type: BLOOD SPECIMENOrdering Facility: [facility] Address: [address] [place] [address] Performed By: #### 5 7021-8 ####[facility] [id number] [place] [address] [place] Erythrocyte distribution width (RBC) [Ratio] 14.0 % Normal 11.5-15.0 [facility] Comment on above: Order Comment: Speci men Type: BLOOD SPECIMENOrdering Facility: [facility] Address: [address] [place] [address] Performed By: #### 5 7021-8 ####[facility] [id number] [place] [address] [place] Hematocrit (Bld) [Volume fraction] 30.6 % Low 36.0-46.0 [facility] Comment on above: Order Comment: Speci men Type: BLOOD SPECIMENOrdering Facility: [facility] Address: [address] [place] [address] Performed By: #### 5 7021-8 ####[facility] [id number] [place] [address] [place] Hemoglobin (Bld) [Mass/Vol] 10.5 g/dL Low 11.5-15.5 [facility] Comment on above: Order Comment: Speci men Type: BLOOD SPECIMENOrdering Facility: [facility] Address: [address] [place] [address] Performed By: #### 5 7021-8 ####[facility] [id number] [place] [address] [place] Immature granulocytes (Bld) [#/Vol] 10*3/uL Normal <0.10 [facility] Comment on above: Order Comment: Speci men Type: BLOOD SPECIMENOrdering Facility: [facility] Address: [address] [place] [address] Performed By: #### 5 7021-8 ####[facility] [id number] [place] [address] [place] Immature granulocytes/100 WBC (Bld) 0.2 % Normal [facility] Comment on above: Order Comment: Speci men Type: BLOOD SPECIMENOrdering Facility: [facility] Address: [address] [place] [address] Performed By: #### 5 7021-8 ####[facility] [id number] [place] [address] [place] Lymphocytes (Bld) [#/Vol] 1.37 10*3/uL Normal 1.00-4.00 [facility] Comment on above: Order Comment: Speci men Type: BLOOD SPECIMENOrdering Facility: [facility] Address: [address] [place] [address] Performed By: #### 5 7021-8 ####[facility] [id number] [place] [address] [place] Lymphocytes/100 WBC (Bld) 31.2 % Normal [facility] Comment on above: Order Comment: Speci men Type: BLOOD SPECIMENOrdering Facility: [facility] Address: [address] [place] [address] Performed By: #### 5 7021-8 ####[facility] [id number] [place] [address] [place] MCH (RBC) [Entitic mass] 31.3 pg Normal 26.0-34.0 [facility] Comment on above: Order Comment: Speci men Type: BLOOD SPECIMENOrdering Facility: [facility] Address: [address] [place] [address] Performed By: #### 5 7021-8 ####[facility] [id number] [place] [address] [place] MCHC (RBC) [Mass/Vol] 34.3 g/dL Normal 30.5-36.0 [facility] Comment on above: Order Comment: Speci men Type: BLOOD SPECIMENOrdering Facility: [facility] Address: [address] [place] [address] Performed By: #### 5 7021-8 ####[facility] [id number] [place] [address] [place] MCV (RBC) [Entitic vol] 91.1 fL Normal 80.0-100.0 [facility] Comment on above: Order Comment: Speci men Type: BLOOD SPECIMENOrdering Facility: [facility] Address: [address] [place] [address] Performed By: #### 5 7021-8 ####[facility] [id number] [place] [address] [place] Monocytes (Bld) [#/Vol] 0.36 10*3/uL Normal <0.87 [facility] Comment on above: Order Comment: Speci men Type: BLOOD SPECIMENOrdering Facility: [facility] Address: [address] [place] [address] Performed By: #### 5 7021-8 ####[facility] [id number] [place] [address] [place] Monocytes/100 WBC (Bld) 8.2 % Normal [facility] Comment on above: Order Comment: Speci men Type: BLOOD SPECIMENOrdering Facility: [facility] Address: [address] [place] [address] Performed By: #### 5 7021-8 ####[facility] [id number] [place] [address] [place] Neutrophils (Bld) [#/Vol] 2.62 10*3/uL Normal 1.45-7.50 [facility] Comment on above: Order Comment: Speci men Type: BLOOD SPECIMENOrdering Facility: [facility] Address: [address] [place] [address] Performed By: #### 5 7021-8 ####[facility] [id number] [place] [address] [place] Neutrophils/100 WBC (Bld) 59.7 % Normal [facility] Comment on above: Order Comment: Speci men Type: BLOOD SPECIMENOrdering Facility: [facility] Address: [address] [place] [address] Performed By: #### 5 7021-8 ####[facility] [id number] [place] [address] [place] Nucleated RBC (Bld) [#/Vol] 10*3/uL Normal <0.01 [facility] Comment on above: Order Comment: Speci men Type: BLOOD SPECIMENOrdering Facility: [facility] Address: [address] [place] [address] Performed By: #### 5 7021-8 ####[facility] [id number] [place] [address] [place] Nucleated RBC/100 WBC (Bld) [Ratio] 0.0 /100 WBC Normal [facility] Comment on above: Order Comment: Speci men Type: BLOOD SPECIMENOrdering Facility: [facility] Address: [address] [place] [address] Performed By: #### 5 7021-8 ####[facility] [id number] [place] [address] [place] Platelet mean volume (Bld) [Entitic vol] 11.2 fL Normal 9.0-12.7 [facility] Comment on above: Order Comment: Speci men Type: BLOOD SPECIMENOrdering Facility: [facility] Address: [address] [place] [address] Performed By: #### 5 7021-8 ####[facility] [id number] [place] [address] [place] Platelets (Bld) [#/Vol] 219 10*3/uL Normal 150-400 [facility] Comment on above: Order Comment: Speci men Type: BLOOD SPECIMENOrdering Facility: [facility] Address: [address] [place] [address] Performed By: #### 5 7021-8 ####[facility] [id number] [place] [address] [place] RBC (Bld) [#/Vol] 3.36 10*6/uL Low 3.90-5.20 [facility] Comment on above: Order Comment: Speci men Type: BLOOD SPECIMENOrdering Facility: [facility] Address: [address] [place] [address] Performed By: #### 5 7021-8 ####[facility] [id number] [place] [address] [place] WBC (Bld) [#/Vol] 4.39 10*3/uL Normal 3.70-11.00 [facility] Comment on above: Order Comment: Speci men Type: BLOOD SPECIMENOrdering Facility: [facility] Address: [address] [place] [address] Performed By: #### 5 7021-8 ####[facility] [id number] [place] [address] [place] CNOVon 07-06-2023 CNOV Normal [facility] CNPTOUTREACHon 07-06-2023 CNPTOUTREACH Normal [facility] CT FLANK WO IVCONon 07-06-19 CT FLANK WO IVCON Normal [facility] ED NOTEon 07-06-2023 ED NOTE Normal [facility] ED NOTE HNO ID: [id number] Author: TG MUNOZ, RN Service: Emergency Medicine Author Type: Registered Nurse Type: ED Notes Filed: 07/06/2023 20:35 Note Text: 0 mL post void residual. Normal [facility] ED NOTE HNO ID: [id number] Author: CORIE LINK RN Service: ? Author Type: Registered Nurse Type: ED Notes Filed: 07/06/2023 15:58 Note Text: Bed: E18-10 Expected date: Expected time: Means of arrival: Comments: HOLD: JOSE Normal [facility] ED PROV NOTEon 07-06-2023 ED PROV NOTE Normal [facility] ED Triage Noteon 07-06-2023 ED Triage Note Normal [facility] URINALYSIS, REFLEX MICROSCOP ICon 07-06-2023 Bilirubin Ql (U) Negative Negative [facility] Clarity (Unsp spec) Clear Clear [facility] Color (U) Light Yellow Yellow [facility] Glucose Test strip (U) [Mass/Vol] Negative Trace, Negative [facility] Hemoglobin Ql (U) Negative Negative, Trace Cl [facility] Interpretation and review of laboratory results Normal [facility] Ketones Ql (U) Negative Negative, Trace [facility] Leukocyte esterase Test strip Ql (U) Negative Negative, 25 Patito/uL [facility] Nitrite Ql (U) Negative Negative [facility] pH (U) 7.0 [pH] 5.0 - 8.0 [facility] Protein (U) [Mass/Vol] Negative Trace, Negative [facility] Specific gravity (U) [Rel density] 1.010 1.005 - 1.030 [facility] Urobilinogen Ql (U) Normal Normal [facility] Bilirubin Ql (U) Negative Normal Negative [facility] Comment on above: Order Comment: Speci men Type: URINE SPECIMENOrdering Facility: [facility] Address: [address] [place] [address] Performed By: #### L [id number] ####[facility] [id number] [address] [place] Clarity (Unsp spec) Clear Normal Clear [facility] Comment on above: Order Comment: Speci men Type: URINE SPECIMENOrdering Facility: [facility] Address: [address] [place] [address] Performed By: #### L [id number] ####[facility] [id number] [place] [address] [place] Color (U) Light Yellow Normal Yellow [facility] Comment on above: Order Comment: Speci men Type: URINE SPECIMENOrdering Facility: [facility] Address: [address] [place] [address] Performed By: #### L [id number] ####[facility] [id number] [place] [address] [place] Glucose Test strip (U) [Mass/Vol] Negative Normal Trace, Negative [facility] Comment on above: Order Comment: Speci men Type: URINE SPECIMENOrdering Facility: [facility] Address: [address] [place] [address] Performed By: #### L [id number] ####[facility] [id number] [place] [address] [place] Hemoglobin Ql (U) Negative Normal Negative, Trace Cl [facility] Comment on above: Order Comment: Speci men Type: URINE SPECIMENOrdering Facility: [facility] Address: [address] [place] [address] Performed By: #### L [id number] ####[facility] [id number] [place] [address] [place] Ketones Ql (U) Negative Normal Negative, Trace [facility] Comment on above: Order Comment: Speci men Type: URINE SPECIMENOrdering Facility: [facility] Address: [address] [place] [address] Performed By: #### L [id number] ####[facility] [id number] [place] [address] [place] Leukocyte esterase Test strip Ql (U) Negative Normal Negative, 25 Patito/uL [facility] Comment on above: Order Comment: Speci men Type: URINE SPECIMENOrdering Facility: [facility] Address: [address] [place] [address] Performed By: #### L [id number] ####[facility] [id number] [place] [address] [place] Nitrite Ql (U) Negative Normal Negative [facility] Comment on above: Order Comment: Speci men Type: URINE SPECIMENOrdering Facility: [facility] Address: [address] [place] [address] Performed By: #### L [id number] ####[facility] [id number] [place] [address] [place] pH (U) 7.0 [pH] Normal 5.0-8.0 [facility] Comment on above: Order Comment: Speci men Type: URINE SPECIMENOrdering Facility: [facility] Address: [address] [place] [address] Performed By: #### L [id number] ####[facility] [id number] [place] [address] [place] Protein (U) [Mass/Vol] Negative Normal Trace, Negative [facility] Comment on above: Order Comment: Speci men Type: URINE SPECIMENOrdering Facility: [facility] Address: [address] [place] [address] Performed By: #### L [id number] ####[facility] [id number] [place] [address] [place] Specific gravity (U) [Rel density] 1.010 Normal 1.005-1.030 [facility] Comment on above: Order Comment: Speci men Type: URINE SPECIMENOrdering Facility: [facility] Address: [address] [place] [address] Performed By: #### L [id number] ####[facility] [id number] [place] [address] [place] Urobilinogen Ql (U) Normal Normal Normal [facility] Comment on above: Order Comment: Speci men Type: URINE SPECIMENOrdering Facility: [facility] Address: [address] [place] [address] Performed By: #### L [id number] ####[facility] [id number] [place] [address] [place] Urinalysis complete panel (U )on 07-06-2023 Bacteria LM.HPF (Urine sed) [#/Area] Negative Normal Negative [facility] Comment on above: Order Comment: Speci men Type: URINE SPECIMENOrdering Facility: [facility] Address: [address] [place] [address] Performed By: #### 2 4356-8 ####[facility] [id number] [place] [address] [place] Bilirubin Ql (U) Negative Normal Negative [facility] Comment on above: Order Comment: Speci men Type: URINE SPECIMENOrdering Facility: [facility] Address: [address] [place] [address] Performed By: #### 2 4356-8 ####[facility] [id number] [place] [address] [place] Clarity (Unsp spec) Clear Normal Clear [facility] Comment on above: Order Comment: Speci men Type: URINE SPECIMENOrdering Facility: [facility] Address: [address] [place] [address] Performed By: #### 2 4356-8 ####[facility] [id number] [place] [address] [place] [facility] Color (U) Yellow Normal Yellow [facility] Comment on above: Order Comment: Speci men Type: URINE SPECIMENOrdering Facility: [facility] Address: [address] [place] [address] Performed By: #### 2 4356-8 ####[facility] [id number] [place] [address] [place] Epithelial cells LM.HPF (Urine sed) [#/Area] None Seen Normal [facility] Comment on above: Order Comment: Speci men Type: URINE SPECIMENOrdering Facility: [facility] Address: [address] [place] [address] Performed By: #### 2 4356-8 ####[facility] [id number] [place] [address] [place] Glucose Test strip (U) [Mass/Vol] Negative Normal Negative [facility] Comment on above: Order Comment: Speci men Type: URINE SPECIMENOrdering Facility: [facility] Address: [address] [place] [address] Performed By: #### 2 4356-8 ####[facility] [id number] [place] [address] [place] Hemoglobin Ql (U) Negative Normal Negative [facility] Comment on above: Order Comment: Speci men Type: URINE SPECIMENOrdering Facility: [facility] Address: [address] [place] [address] Performed By: #### 2 4356-8 ####[facility] [id number] [place] [address] [place] Hyaline casts (Urine sed) [#/Area] 0 /[LPF] Normal 0 /LPF [facility] Comment on above: Order Comment: Speci men Type: URINE SPECIMENOrdering Facility: [facility] Address: [address] [place] [address] Performed By: #### 2 4356-8 ####[facility] [id number] [place] [address] [place] Ketones Ql (U) Negative Normal Negative [facility] Comment on above: Order Comment: Speci men Type: URINE SPECIMENOrdering Facility: [facility] Address: [address] [place] [address] Performed By: #### 2 4356-8 ####[facility] [id number] [place] [address] [place] Leukocyte esterase Test strip Ql (U) Negative Normal Negative [facility] Comment on above: Order Comment: Speci men Type: URINE SPECIMENOrdering Facility: [facility] Address: [address] [place] [address] Performed By: #### 2 4356-8 ####[facility] [id number] [place] [address] [place] Nitrite Ql (U) Negative Normal Negative [facility] Comment on above: Order Comment: Speci men Type: URINE SPECIMENOrdering Facility: [facility] Address: [address] [place] [address] Performed By: #### 2 4356-8 ####[facility] [id number] [place] [address] [place] pH (U) 7.5 [pH] Normal <8.5 [facility] Comment on above: Order Comment: Speci men Type: URINE SPECIMENOrdering Facility: [facility] Address: [address] [place] [address] Performed By: #### 2 4356-8 ####[facility] [id number] [place] [address] [place] Protein (U) [Mass/Vol] Negative Normal Negative [facility] Comment on above: Order Comment: Speci men Type: URINE SPECIMENOrdering Facility: [facility] Address: [address] [place] [address] Performed By: #### 2 4356-8 ####[facility] [id number] [place] [address] [place] RBC LM.HPF (Urine sed) [#/Area] 0-2 /HPF Normal 0-2 /HPF [facility] Comment on above: Order Comment: Speci men Type: URINE SPECIMENOrdering Facility: [facility] Address: [address] [place] [address] Performed By: #### 2 4356-8 ####[facility] [id number] [place] [address] [place] Specific gravity (U) [Rel density] 1.020 Normal 1.005-1.030 [facility] Comment on above: Order Comment: Speci men Type: URINE SPECIMENOrdering Facility: [facility] Address: [address] [place] [address] Performed By: #### 2 4356-8 ####[facility] [id number] [place] [address] [place] Urobilinogen Ql (U) 1.0 EU/dL Normal 0.2-1.0 EU/dL [facility] Comment on above: Order Comment: Speci men Type: URINE SPECIMENOrdering Facility: [facility] Address: [address] [place] [address] Performed By: #### 2 4356-8 ####[facility] [id number] [place] [address] [place] WBC LM.HPF (Urine sed) [#/Area] 0-5 /HPF Normal 0-5 /HPF [facility] Comment on above: Order Comment: Speci men Type: URINE SPECIMENOrdering Facility: [facility] Address: [address] [place] [address] Performed By: #### 2 4356-8 ####[facility] [id number] [place] [address] [place] XR CHEST 2V FRONTAL/LATon XR CHEST 2V FRONTAL/LAT Normal [facility] Glucose Test strip manual (B ld) [Mass/Vol]on 07-03-2023 Glucose [Mass/Vol] 121 mg/dL High 74 - 99 mg/dL [facility] Interpretation and review of laboratory results Abnormal [facility] Glucose [Mass/Vol] 121 mg/dL High 74-99 [facility] Comment on above: Performed By: #### 2 4356-8 #### MELISA Galvan ([id number]) [facility] () [address] [place] [address] CBC panel Auto (Bld)on 07-01 Erythrocyte distribution width (RBC) [Ratio] 13.4 % 11.5 - 14.5 % [facility] Hematocrit (Bld) [Volume fraction] 35.5 % Low 36.0 - 46.0 % [facility] Hemoglobin (Bld) [Mass/Vol] 11.8 g/dL Low 12.0 - 16.0 g/dL [facility] Interpretation and review of laboratory results Abnormal [facility] MCH (RBC) [Entitic mass] 30.3 pg 26.0 - 34.0 pg [facility] MCHC (RBC) [Mass/Vol] 33.2 g/dL 32.0 - 36.0 g/dL [facility] MCV (RBC) [Entitic vol] 91 fL 80 - 100 fL [facility] Nucleated RBC/100 WBC (Bld) [Ratio] 0.0 % [facility] Platelets (Bld) [#/Vol] 223 10*3/uL [facility] RBC (Bld) [#/Vol] 3.89 10*6/uL Low [facility] WBC (Bld) [#/Vol] 4.5 10*3/uL [facility] Erythrocyte distribution width (RBC) [Ratio] 13.4 % Normal 11.5-14.5 [facility] Comment on above: Performed By: #### 2 4356-8 #### MELISA Galvan ([id number]) [facility] () [address] [place] [address] Hematocrit (Bld) [Volume fraction] 35.5 % Low 36.0-46.0 [facility] Comment on above: Performed By: #### 2 4356-8 #### MELISA Galvan ([id number]) [facility] () [address] [place] [address] Hemoglobin (Bld) [Mass/Vol] 11.8 g/dL Low 12.0-16.0 [facility] Comment on above: Performed By: #### 2 4356-8 #### MELISA Galvan ([id number]) [facility] () [address] [place] [address] MCH (RBC) [Entitic mass] 30.3 pg Normal 26.0-34.0 [facility] Comment on above: Performed By: #### 2 4356-8 #### MELISA Galvan ([id number]) [facility] () [address] [place] [address] MCHC (RBC) [Mass/Vol] 33.2 g/dL Normal 32.0-36.0 [facility] Comment on above: Performed By: #### 2 4356-8 #### MELISA Galvan ([id number]) [facility] () [address] [place] [address] MCV (RBC) [Entitic vol] 91 fL Normal 80-100 [facility] Comment on above: Performed By: #### 2 4356-8 #### MELISA Galvan ([id number]) [facility] () [address] [place], [place] [address] Nucleated RBC/100 WBC (Bld) [Ratio] 0.0 /100 WBCs Normal 0.0-0.0 [facility] Comment on above: Performed By: #### 2 4356-8 #### MELISA Galvan ([id number]) [facility] () [address] [place] [address] Platelets (Bld) [#/Vol] 223 x10*3/uL Normal 150-450 [facility] [place] Comment on above: Performed By: #### 2 4356-8 #### MELISA Galvan ([id number]) [facility] () [address] [place] [address] RBC (Bld) [#/Vol] 3.89 x10*6/uL Low 4.00-5.20 [facility] Comment on above: Performed By: #### 2 4356-8 #### MELISA Galvan ([id number]) [facility] () [address] [place] [address] WBC (Bld) [#/Vol] 4.5 x10*3/uL Normal 4.4-11.3 [facility] Comment on above: Performed By: #### 2 4356-8 #### MELISA Galvan ([id number]) [facility] () [address] [place] [address] Glucose Test strip manual (B ld) [Mass/Vol]on 07-02-2023 Glucose [Mass/Vol] 103 mg/dL High 74 - 99 mg/dL [facility] Interpretation and review of laboratory results Abnormal [facility] Glucose [Mass/Vol] 103 mg/dL High 74-99 [facility] Comment on above: Performed By: #### 2 4356-8 #### MELISA Galvan ([id number]) [facility] () [address] [place] [address] Glucose [Mass/Vol] 112 mg/dL High 74 - 99 mg/dL [facility] Interpretation and review of laboratory results Abnormal [facility] Glucose [Mass/Vol] 112 mg/dL High 74-99 [facility] Comment on above: Performed By: #### 2 4356-8 #### MELISA aGlvan ([id number]) [facility] () [address] [place] [address] Glucose [Mass/Vol] 99 mg/dL 74 - 99 mg/dL [facility] Interpretation and review of laboratory results Normal [facility] Glucose [Mass/Vol] 99 mg/dL Normal 74-99 [facility] Comment on above: Performed By: #### 2 4356-8 #### MELISA Galvan ([id number]) [facility] () [address] [place] [address] Glucose [Mass/Vol] 135 mg/dL High 74 - 99 mg/dL [facility] Interpretation and review of laboratory results Abnormal [facility] Glucose [Mass/Vol] 135 mg/dL High 74-99 [facility] Comment on above: Performed By: #### 2 4356-8 #### MELISA Galvan ([id number]) [facility] () [address] [place] [address] Renal function 2000 panelon 07-02-2023 Albumin [Mass/Vol] 4.0 g/dL 3.5 - 5.0 g/dL [facility] Anion gap [Moles/Vol] 11 mmol/L NINF - 19 mmol/L [facility] Calcium [Mass/Vol] 8.6 mg/dL 8.5 - 10.4 mg/dL [facility] Chloride [Moles/Vol] 103 mmol/L 97 - 107 mmol/L [facility] CO2 [Moles/Vol] 23 mmol/L Low 24 - 31 mmol/L [facility] Creatinine [Mass/Vol] 0.70 mg/dL 0.40 - 1.60 mg/dL [facility] eGFR - PINF [facility] Comment on above: Calculations of jessica mated GFR are performed using the 2020 CKD-EPI Study Refit equation without the race variable for the IDMS-Traceable creatinine methods. https://jasn.asnjournals.org/content//ASN.19032819 88 Glucose [Mass/Vol] 101 mg/dL High 65 - 99 mg/dL [facility] Interpretation and review of laboratory results Abnormal [facility] Phosphate [Mass/Vol] 4.0 mg/dL 2.5 - 4.5 mg/dL [facility] Potassium [Moles/Vol] 3.9 mmol/L 3.4 - 5.1 mmol/L [facility] Sodium [Moles/Vol] 137 mmol/L 133 - 145 mmol/L [facility] Urea nitrogen [Mass/Vol] 13 mg/dL 8 - 25 mg/dL [facility] Albumin [Mass/Vol] 4.0 g/dL Normal 3.5-5.0 [facility] Comment on above: Performed By: #### 2 4356-8 #### MELISA Galvan ([id number]) [facility] () [address] [place] [address] Anion gap [Moles/Vol] 11 mmol/L Normal <=19 [facility] [place] Comment on above: Performed By: #### 2 4356-8 #### MELISA Galvan ([id number]) [facility] () [address] [place] [address] Calcium [Mass/Vol] 8.6 mg/dL Normal 8.5-10.4 [facility] Comment on above: Performed By: #### 2 4356-8 #### MELISA Galvan ([id number]) [facility] () [address] [place] [address] Chloride [Moles/Vol] 103 mmol/L Normal 97-107 [facility] Comment on above: Performed By: #### 2 4356-8 #### MELISA Galvan ([id number]) [facility] () [address] [place] [address] CO2 [Moles/Vol] 23 mmol/L Low 24-31 [facility] Comment on above: Performed By: #### 2 4356-8 #### MELISA Galvan ([id number]) [facility] () [address] [place] [address] Creatinine [Mass/Vol] 0.70 mg/dL Normal 0.40-1.60 [facility] Comment on above: Performed By: #### 2 4356-8 #### MELISA Galvan ([id number]) [facility] () [address] [place] [address] GFR/1.73 sq M.predicted MDRD (S/P/Bld) [Vol rate/Area] mL/min/{1.73_m2} Normal >60 [facility] [place] Comment on above: Result Comment: Calc ulations of estimated GFR are performed using the 2020 CKD-EPI Study Refit equation without the race variable for the IDMS-Traceable creatinine methods. https://jasn.asnjournals.org/content//ASN.82571220 88 Performed By: #### 2 4356-8 #### MELISA Galvan ([id number]) [facility] () [address] [place] [address] Glucose [Mass/Vol] 101 mg/dL High 65-99 [facility] Comment on above: Performed By: #### 2 4356-8 #### MELISA Galvan ([id number]) [facility] () [address] [place] [address] Phosphate [Mass/Vol] 4.0 mg/dL Normal 2.5-4.5 [facility] [place] Comment on above: Performed By: #### 2 4356-8 #### MELISA Galvan (71809) [facility] () [address] [place] [address] Potassium [Moles/Vol] 3.9 mmol/L Normal 3.4-5.1 [facility] [place] Comment on above: Performed By: #### 2 4356-8 #### MELISA Galvan (36532) [facility] () [address] [place] [address] Sodium [Moles/Vol] 137 mmol/L Normal 133-145 [facility] Comment on above: Performed By: #### 2 4356-8 #### MELISA Galvan (48384) [facility] () [address] [place] [address] Urea nitrogen [Mass/Vol] 13 mg/dL Normal 8-25 [facility] Comment on above: Performed By: #### 2 4356-8 #### MELISA Galvan ([id number]) [facility] () [address] [place] [address] CBC panel Auto (Bld)on 06-30 Erythrocyte distribution width (RBC) [Ratio] 13.7 % 11.5 - 14.5 % [facility] Hematocrit (Bld) [Volume fraction] 36.7 % 36.0 - 46.0 % [facility] Hemoglobin (Bld) [Mass/Vol] 12.0 g/dL 12.0 - 16.0 g/dL [facility] Interpretation and review of laboratory results Abnormal [facility] MCH (RBC) [Entitic mass] 31.1 pg 26.0 - 34.0 pg [facility] MCHC (RBC) [Mass/Vol] 32.7 g/dL 32.0 - 36.0 g/dL [facility] MCV (RBC) [Entitic vol] 95 fL 80 - 100 fL [facility] Nucleated RBC/100 WBC (Bld) [Ratio] 0.0 % [facility] Platelets (Bld) [#/Vol] 228 10*3/uL [facility] RBC (Bld) [#/Vol] 3.86 10*6/uL [facility] WBC (Bld) [#/Vol] 3.3 10*3/uL [facility] Erythrocyte distribution width (RBC) [Ratio] 13.7 % Normal 11.5-14.5 [facility] [place] Comment on above: Performed By: #### 5 8410-2 #### MELISA Galvan (38641) [facility] () [address] [place] [address] Hematocrit (Bld) [Volume fraction] 36.7 % Normal 36.0-46.0 [facility] Comment on above: Performed By: #### 5 8410-2 #### MELISA Galvan (52474) [facility] () [address] [place] [address] Hemoglobin (Bld) [Mass/Vol] 12.0 g/dL Normal 12.0-16.0 [facility] [place] Comment on above: Performed By: #### 5 8410-2 #### MELISA Galvan (65698) [facility] () [address] [place] [address] MCH (RBC) [Entitic mass] 31.1 pg Normal 26.0-34.0 [facility] Comment on above: Performed By: #### 5 8410-2 #### MELISA Galvan ([id number]) [facility] () [address] [place] [address] MCHC (RBC) [Mass/Vol] 32.7 g/dL Normal 32.0-36.0 [facility] [place] Comment on above: Performed By: #### 5 8410-2 #### MELISA Galvan ([id number]) [facility] () [address] [place] [address] MCV (RBC) [Entitic vol] 95 fL Normal 80-100 [facility] [place] Comment on above: Performed By: #### 5 8410-2 #### MELISA Galvan (62008) [facility] () [address] [place] [address] Nucleated RBC/100 WBC (Bld) [Ratio] 0.0 /100 WBCs Normal 0.0-0.0 [facility] [place] Comment on above: Performed By: #### 5 8410-2 #### MELISA Galvan ([id number]) [facility] () [address] [place] [address] Platelets (Bld) [#/Vol] 228 x10*3/uL Normal 150-450 [facility] Comment on above: Performed By: #### 5 8410-2 #### MLEISA Galvan ([id number]) [facility] () [address] [place] [address] RBC (Bld) [#/Vol] 3.86 x10*6/uL Low 4.00-5.20 [facility] Comment on above: Performed By: #### 5 8410-2 #### MELISA Galvan (62239) [facility] () [address] [place] [address] WBC (Bld) [#/Vol] 3.3 x10*3/uL Low 4.4-11.3 [facility] Comment on above: Performed By: #### 5 8410-2 #### MELISA Galvan ([id number]) [facility] () [address] [place] [address] Glucose Test strip manual (B ld) [Mass/Vol]on 07-01-2023 Glucose [Mass/Vol] 104 mg/dL High 74 - 99 mg/dL [facility] Interpretation and review of laboratory results Abnormal [facility] Glucose [Mass/Vol] 104 mg/dL High 74-99 [facility] Comment on above: Performed By: #### 5 8410-2 #### MELISA Galvan ([id number]) [facility] () [address] [place] [address] Glucose [Mass/Vol] 92 mg/dL 74 - 99 mg/dL [facility] Interpretation and review of laboratory results Normal [facility] Glucose [Mass/Vol] 92 mg/dL Normal 74-99 [facility] Comment on above: Performed By: #### 5 8410-2 #### MELISA Galvan (57721) [facility] () [address] [place] [address] Glucose [Mass/Vol] 88 mg/dL 74 - 99 mg/dL [facility] Interpretation and review of laboratory results Normal [facility] Glucose [Mass/Vol] 88 mg/dL Normal 74-99 [facility] Comment on above: Performed By: #### 5 8410-2 #### MELISA Galvan (17803) [facility] () [address] [place] [address] Glucose [Mass/Vol] 105 mg/dL High 74 - 99 mg/dL [facility] Interpretation and review of laboratory results Abnormal [facility] Glucose [Mass/Vol] 105 mg/dL High 74-99 [facility] Comment on above: Performed By: #### 5 8410-2 #### MELISA Galvan (95623) [facility] () [address] [facility] [address] Glucose [Mass/Vol] 86 mg/dL 74 - 99 mg/dL [facility] Interpretation and review of laboratory results Normal [facility] Glucose [Mass/Vol] 86 mg/dL Normal 74-99 [facility] Comment on above: Performed By: #### 5 8410-2 #### MELISA Galvan (48134) [facility] () [address] [place] [address] Glucose [Mass/Vol] 98 mg/dL 74 - 99 mg/dL [facility] Interpretation and review of laboratory results Normal [facility] Glucose [Mass/Vol] 98 mg/dL Normal 74-99 [facility] Comment on above: Performed By: #### 5 8410-2 #### MELISA Galvan (39337) [facility] () [address] [place] [address] [facility] 2023 [facility] Records [id number] Normal [facility] Magnesiumon 07-01-2023 Magnesium [Mass/Vol] 2.00 mg/dL 1.60 - 3.10 mg/dL [facility] Magnesium [Mass/Vol] 2.00 mg/dL Normal 1.60-3.10 [facility] Comment on above: Performed By: #### 5 8410-2 #### MELISA Galvan ([id number]) [facility] () [address] [place] [address] Magnesium [Mass/Vol]on 06-30 Interpretation and review of laboratory results Normal [facility] Renal function 2000 panelon 07-01-2023 Albumin [Mass/Vol] 3.8 g/dL 3.5 - 5.0 g/dL [facility] Anion gap [Moles/Vol] 12 mmol/L NINF - 19 mmol/L [facility] Calcium [Mass/Vol] 8.5 mg/dL 8.5 - 10.4 mg/dL [facility] Chloride [Moles/Vol] 106 mmol/L 97 - 107 mmol/L [facility] CO2 [Moles/Vol] 21 mmol/L Low 24 - 31 mmol/L [facility] Creatinine [Mass/Vol] 0.70 mg/dL 0.40 - 1.60 mg/dL [facility] eGFR - PINF [facility] Comment on above: Calculations of jessica mated GFR are performed using the 2020 CKD-EPI Study Refit equation without the race variable for the IDMS-Traceable creatinine methods. https://jasn.asnjournals.org/content//ASN.75748559 88 Glucose [Mass/Vol] 113 mg/dL High 65 - 99 mg/dL [facility] Interpretation and review of laboratory results Abnormal [facility] Phosphate [Mass/Vol] 5.4 mg/dL High 2.5 - 4.5 mg/dL [facility] Potassium [Moles/Vol] 3.9 mmol/L 3.4 - 5.1 mmol/L [facility] Sodium [Moles/Vol] 139 mmol/L 133 - 145 mmol/L [facility] Urea nitrogen [Mass/Vol] 12 mg/dL 8 - 25 mg/dL [facility] Albumin [Mass/Vol] 3.8 g/dL Normal 3.5-5.0 [facility] Comment on above: Performed By: #### 5 8410-2 #### MELISA Galvan ([id number]) [facility] ([facility]) [address] [place] [address] Anion gap [Moles/Vol] 12 mmol/L Normal <=19 [facility] Comment on above: Performed By: #### 5 8410-2 #### MELISA Galvan (08165) [facility] () [address] [place] [address] Calcium [Mass/Vol] 8.5 mg/dL Normal 8.5-10.4 [facility] Comment on above: Performed By: #### 5 8410-2 #### MELISA Galvan ([id number]) [facility] () [address] [place] [address] Chloride [Moles/Vol] 106 mmol/L Normal 97-107 [facility] Comment on above: Performed By: #### 5 8410-2 #### MELISA Galvan (35926) [facility] () [address] [place] [address] CO2 [Moles/Vol] 21 mmol/L Low 24-31 [facility] Comment on above: Performed By: #### 5 8410-2 #### MELISA Galvan ([id number]) [facility] () [address] [place] [address] Creatinine [Mass/Vol] 0.70 mg/dL Normal 0.40-1.60 [facility] [place] Comment on above: Performed By: #### 5 8410-2 #### MELISA Galvan ([id number]) [facility] () [address] [place] [address] GFR/1.73 sq M.predicted MDRD (S/P/Bld) [Vol rate/Area] mL/min/{1.73_m2} Normal >60 [facility] Comment on above: Result Comment: Calc ulations of estimated GFR are performed using the 2020 CKD-EPI Study Refit equation without the race variable for the IDMS-Traceable creatinine methods. https://jasn.asnjournals.org/content///ASN.10427006 88 Performed By: #### 5 8410-2 #### MELISA Galvan (60751) [facility] () [address] [place] [address] Glucose [Mass/Vol] 113 mg/dL High 65-99 [facility] Comment on above: Performed By: #### 5 8410-2 #### MELISA Galvan (07145) [facility] () [address] [place] [address] Phosphate [Mass/Vol] 5.4 mg/dL High 2.5-4.5 [facility] Comment on above: Performed By: #### 5 8410-2 #### MELISA Galvan (50679) [facility] () [address] [place] [address] Potassium [Moles/Vol] 3.9 mmol/L Normal 3.4-5.1 [facility] Comment on above: Performed By: #### 5 8410-2 #### MELISA Galvan ([id number]) [facility] () [address] [place] [address] Sodium [Moles/Vol] 139 mmol/L Normal 133-145 [facility] Comment on above: Performed By: #### 5 8410-2 #### MELISA Galvan (48877) [facility] () [address] [place] [address] Urea nitrogen [Mass/Vol] 12 mg/dL Normal 8-25 [facility] Comment on above: Performed By: #### 5 8410-2 #### MELISA Galvan (52092) [facility] () [address] [place] [address] Vascular US mesenteric arter y duplex completeon 07-01-2023 [facility] [address] [place] [address] Vascular Lab Report VASC US MESENTERIC ARTERY DUPLEX COMPLETE Patient Name: ABBEY Oneil Physician: [id number] Sherry Magaña MD Study Date: 06/30/2023 Ordering Provider: [id number] JAMIL GAVIN MRN/PID: [id number] Fellow: Technologist: Leia Kepich RVT Date of /Age: 2 1990 / 33 years Technologist 2: Gender: F Admission Status: Inpatient Location Performed: [facility] 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 Report Amended Report Amended By: [id number] Magaña MD Date and Time: 06/30/2023 at [...] PSV 89 cm/s KEELY PSV 105 cm/s [id number] Magaña [place] [id number] Magaña MD Electronically Amended 06/30/2023, 12:15 PM Final (Amended) Sherry Santillan MD - 07/01/2023 [place] [id number] Vascular Lab Report VASC US MESENTERIC ARTERY DUPLEX COMPLETE Patient Name: ABBEY FloresRenetta Oneil Physician: [id number] Magaña MD Study Date: 06/30/2023 Ordering Provider: [id number] JAMIL GAVIN MRN/PID: [id number] Fellow: Technologist: Leia Degroot RVNeva Date of /Age: 2 1990 / 33 years Technologist 2: Gender: F Admission Status: Inpatient Location Performed: [facility] 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 Report Amended Report Amended By: [id number] Magaña MD Date and Time: 06/30/2023 at [...] PSV 89 cm/s KEELY PSV 105 cm/s [id number] Magaña MD Brandy Magaña MD Electronically Amended 06/30/2023, 12:15 PM Final (Amended) [facility] Work Phone: [facility] Work Phone: XR CHEST 1 VIEWon 07-01-2023 XR CHEST 1 VIEW Interpreted By: Dotty Salcido, STUDY: XR CHEST 1 VIEW 07/01/2023 1:30 pm INDICATION: Signs/Symptoms:PICC line position verification COMPARISON: 03/17/2023 ACCESSION NUMBER(S): [id number] ORDERING CLINICIAN: DOLORES COX TECHNIQUE: Single AP view chest FINDINGS: Cardiomediastinal silhouette is within normal limits. Right-sided PICC line identified with tip in the region of the mid SVC. No infiltrate or effusion is identified. Visualized osseous structures unremarkable. IMPRESSION: 1. Right PICC line placement with tip in the mid SVC. Signed by: Dotty Salcido 07/01/2023 1:46 PM Dictation workstation: [employer] [facility] XR Chest Single viewon 06-30 1. Right PICC line placement with tip in the mid SVC. Signed by: Dotty Salcido 07/01/2023 1:46 PM Dictation workstation: [id number] Interpreted By: Dotty Salcido, STUDY: XR CHEST 1 VIEW 07/01/2023 1:30 pm INDICATION: Signs/Symptoms:PICC line position verification COMPARISON: 03/17/2023 ACCESSION NUMBER(S): [id number] ORDERING CLINICIAN: DOLORES COX TECHNIQUE: Single AP [...] line position verification COMPARISON: 03/17/2023 ACCESSION NUMBER(S): [id number] ORDERING CLINICIAN: DOLORES COX TECHNIQUE: Single AP view chest FINDINGS: Cardiomediastinal silhouette is within normal limits. Right-sided PICC line identified with tip in the region of the mid SVC. No infiltrate or effusion is identified. Visualized osseous structures unremarkable. IMPRESSION: 1. Right PICC line placement with tip in the mid SVC. Signed by: Dotty Salcido 07/01/2023 1:46 PM Dictation workstation: [id number] [facility] Work Phone: Radiology Study observation (narrative) [facility] Work Phone: XR Chest Single viewOrdered By: Dotty Salcido on 07-01-2023 [facility] Work Phone: CBC panel Auto (Bld)on 06-29 Erythrocyte distribution width (RBC) [Ratio] 13.8 % 11.5 - 14.5 % [facility] Hematocrit (Bld) [Volume fraction] 32.2 % Low 36.0 - 46.0 % [facility] Hemoglobin (Bld) [Mass/Vol] 10.8 g/dL Low 12.0 - 16.0 g/dL [facility] Interpretation and review of laboratory results Abnormal [facility] MCH (RBC) [Entitic mass] 31.0 pg 26.0 - 34.0 pg [facility] MCHC (RBC) [Mass/Vol] 33.5 g/dL 32.0 - 36.0 g/dL [facility] MCV (RBC) [Entitic vol] 93 fL 80 - 100 fL [facility] Nucleated RBC/100 WBC (Bld) [Ratio] 0.0 % [facility] Platelets (Bld) [#/Vol] 217 10*3/uL [facility] RBC (Bld) [#/Vol] 3.48 10*6/uL Low [facility] WBC (Bld) [#/Vol] 5.0 10*3/uL [facility] Erythrocyte distribution width (RBC) [Ratio] 13.8 % Normal 11.5-14.5 [facility] Comment on above: Performed By: #### 5 8410-2 ####MELISA Galvan ([id number])[facility] ()[address] [place] [address] Hematocrit (Bld) [Volume fraction] 32.2 % Low 36.0-46.0 [facility] Comment on above: Performed By: #### 5 8410-2 ####MELISA Galvan (26351)[facility] ()[address] [place] [address] Hemoglobin (Bld) [Mass/Vol] 10.8 g/dL Low 12.0-16.0 [facility] Comment on above: Performed By: #### 5 8410-2 ####MELISA Galvan ()[facility] ()[address] [place] [address] MCH (RBC) [Entitic mass] 31.0 pg Normal 26.0-34.0 [facility] Comment on above: Performed By: #### 5 8410-2 ####MELISA Galvan (39710)[facility] ()[address] [place] [address] MCHC (RBC) [Mass/Vol] 33.5 g/dL Normal 32.0-36.0 [facility] Comment on above: Performed By: #### 5 8410-2 ####MELISA Galvan ([id number])[facility] ()[address] [place] [address] MCV (RBC) [Entitic vol] 93 fL Normal 80-100 [facility] Comment on above: Performed By: #### 5 8410-2 ####MELISA Galvan ([id number])[facility] ()[address] [place] [address] Nucleated RBC/100 WBC (Bld) [Ratio] 0.0 /100 WBCs Normal 0.0-0.0 [facility] Comment on above: Performed By: #### 5 8410-2 ####MELISA Galvan ([id number])[facility] ()[address] [place] [address] Platelets (Bld) [#/Vol] 217 x10*3/uL Normal 150-450 [facility] Comment on above: Performed By: #### 5 8410-2 ####MELISA POOLESarwat Galvan ([id number])[facility] ()[address] [employer] [address] RBC (Bld) [#/Vol] 3.48 x10*6/uL Low 4.00-5.20 [facility] Comment on above: Performed By: #### 5 8410-2 ####MELISA ALEXANDRO J ([id number])[facility] ()[address] [facility] [place] [place] [address] WBC (Bld) [#/Vol] 5.0 x10*3/uL Normal 4.4-11.3 [facility] Comment on above: Performed By: #### 5 8410-2 ####MELISA Galvan ([id number])[facility] ()[address] [place] [address] [place] ANGIO ABDOMEN PELVIS W AN D/OR WO IV IV CONTRASTon 06-30-2023 CT ANGIO ABDOMEN PELVIS W AND/OR WO IV IV CONTRAST Interpreted By: Audie Gutierrez, STUDY: CT ANGIO ABDOMEN PELVIS W AND/OR WO IV IV CONTRAST; 06/30/2023 10:56 am INDICATION: Signs/Symptoms:Carmela ac disease; COMPARISON: 06/29/2023 ACCESSION NUMBER(S): [id number] ORDERING CLINICIAN: TIFFANIE MENDEZ TECHNIQUE: Contiguous axial [...] Audie Gutierrez 06/30/2023 12:06 PM Dictation workstation: [id number] [facility] Comment on above: Order Comment: CTA, turbulent [...] Audie Gutierrez 06/30/2023 12:06 PM Dictation workstation: [id number] Interpreted By: Audie Gutierrez, STUDY: CT ANGIO ABDOMEN PELVIS W AND/OR WO IV IV CONTRAST; 06/30/2023 10:56 am INDICATION: Signs/Symptoms:Carmela ac disease; COMPARISON: 06/29/2023 ACCESSION NUMBER(S): [id number] ORDERING CLINICIAN: TIFFANIE MENDEZ TECHNIQUE: Contiguous axial [...] Signs/Symptoms:Carmela ac disease; COMPARISON: 06/29/2023 ACCESSION NUMBER(S): [id number] ORDERING CLINICIAN: TIFFANIE MENDEZ TECHNIQUE: Contiguous axial [...] Audie Gutierrez 06/30/2023 12:06 PM Dictation workstation: [id number] [facility] Work Phone: Radiology Study observation (narrative) [facility] Work Phone: CTA Abdominal vessels and Pe lvis vessels WO and W contrast IVOrdered By: Audie Gutierrez on 06-30-2023 [facility] Work Phone: Comprehensive metabolic 2000 panelOrdered By: Cristina Blevins on 06-30-2023 Albumin [Mass/Vol] 3.8 g/dL 3.5 - 5.0 g/dL [facility] ALP (Bld) [Catalytic activity/Vol] 51 U/L 35 - 125 U/L [facility] ALT [Catalytic activity/Vol] 35 U/L 5 - 40 U/L [facility] Anion gap [Moles/Vol] 13 mmol/L NINF - 19 mmol/L [facility] AST [Catalytic activity/Vol] 52 U/L High 5 - 40 U/L [facility] Bilirubin [Mass/Vol] mg/dL 0.1 - 1.2 mg/dL [facility] Calcium [Mass/Vol] 9.1 mg/dL 8.5 - 10.4 mg/dL [facility] Chloride [Moles/Vol] 90 mmol/L Low 97 - 107 mmol/L [facility] CO2 [Moles/Vol] 19 mmol/L Low 24 - 31 mmol/L [facility] Creatinine [Mass/Vol] 0.70 mg/dL 0.40 - 1.60 mg/dL [facility] eGFR - PINF [facility] Comment on above: Calculations of jessica mated GFR are performed using the 2020 CKD-EPI Study Refit equation without the race variable for the IDMS-Traceable creatinine methods. https://jasn.asnjournals.org/content//ASN.72648777 88 Glucose [Mass/Vol] 920 mg/dL Critically high 65 - 99 mg/d L [facility] Comment on above: Result rechecked Possible IV contamination. Results do not correlate with previous and post results. Patient was redraw . Interpretation and review of laboratory results Abnormal [facility] Potassium [Moles/Vol] 6.8 mmol/L Critically high 3.4 - 5.1 mmol/L [facility] Comment on above: Result rechecked Possible IV contamination. Results do not correlate with previus and post results. Patient was redrawn. Protein [Mass/Vol] 6.3 g/dL 5.9 - 7.9 g/dL Un [facility] Sodium [Moles/Vol] 122 mmol/L Low 133 - 145 mmol/L [facility] Comment on above: Result rechecked Urea nitrogen [Mass/Vol] 15 mg/dL 8 - 25 mg/dL [facility] Comprehensive metabolic 2000 panelon 06-30-2023 Albumin [Mass/Vol] 3.8 g/dL 3.5 - 5.0 g/dL Un [facility] ALP (Bld) [Catalytic activity/Vol] 52 U/L 35 - 125 U/L [facility] ALT [Catalytic activity/Vol] 34 U/L 5 - 40 U/L [facility] Anion gap [Moles/Vol] 10 mmol/L NINF - 19 mmol/L [facility] AST [Catalytic activity/Vol] 43 U/L High 5 - 40 U/L [facility] Bilirubin [Mass/Vol] 0.3 mg/dL 0.1 - 1.2 mg/dL [facility] Calcium [Mass/Vol] 8.8 mg/dL 8.5 - 10.4 mg/dL [facility] Chloride [Moles/Vol] 104 mmol/L 97 - 107 mmol/L [facility] CO2 [Moles/Vol] 23 mmol/L Low 24 - 31 mmol/L [facility] Creatinine [Mass/Vol] 0.60 mg/dL 0.40 - 1.60 mg/dL [facility] eGFR - PINF [facility] Comment on above: Calculations of jessica mated GFR are performed using the 2020 CKD-EPI Study Refit equation without the race variable for the IDMS-Traceable creatinine methods. https://jasn.asnjournals.org/content//ASN.17495763 88 Glucose [Mass/Vol] 136 mg/dL High 65 - 99 mg/dL Uni [facility] Interpretation and review of laboratory results Abnormal [facility] Potassium [Moles/Vol] 3.9 mmol/L 3.4 - 5.1 mmol/L [facility] Protein [Mass/Vol] 6.3 g/dL 5.9 - 7.9 g/dL [facility] Sodium [Moles/Vol] 137 mmol/L 133 - 145 mmol/L [facility] Urea nitrogen [Mass/Vol] 14 mg/dL 8 - 25 mg/dL [facility] Albumin [Mass/Vol] 3.8 g/dL Normal 3.5-5.0 [facility] Comment on above: Performed By: #### 2 4323-8 ####MELISA Galvan ([id number])[facility] ()[address] [place] [address] ALP (Bld) [Catalytic activity/Vol] 52 U/L Normal 35-125 [facility] Comment on above: Performed By: #### 2 4323-8 ####MELISA Galvan ([id number])[facility] ()[address] [place] [address] ALT [Catalytic activity/Vol] 34 U/L Normal 5-40 [facility] Comment on above: Performed By: #### 2 4323-8 ####MELISA Galvan ([id number])[facility] ()[address] [place] [address] Anion gap [Moles/Vol] 10 mmol/L Normal <=19 [facility] Comment on above: Performed By: #### 2 4323-8 ####MELISA Galvan ([id number])[facility] ()[address] [place] [address] AST [Catalytic activity/Vol] 43 U/L High 5-40 [facility] Comment on above: Performed By: #### 2 432-8 ####MELISA Galvan ([id number])[facility] ()[address] [place] [address] Bilirubin [Mass/Vol] 0.3 mg/dL Normal 0.1-1.2 [facility] Comment on above: Performed By: #### 2 432-8 ####MELISA Galvan ([id number])[facility] ()[address] [place] [address] Calcium [Mass/Vol] 8.8 mg/dL Normal 8.5-10.4 [facility] Comment on above: Performed By: #### 2 432-8 ####MELISA Galvan ([id number])[facility] ()[address] [place] [address] Chloride [Moles/Vol] 104 mmol/L Normal 97-107 [facility] Comment on above: Performed By: #### 2 4323-8 ####MELISA Galvan ([id number])[facility] ()[address] [place] [address] CO2 [Moles/Vol] 23 mmol/L Low 24-31 [facility] Comment on above: Performed By: #### 2 4323-8 ####MELISA Galvan ([id number])[facility] ()[address] [place] [address] Creatinine [Mass/Vol] 0.60 mg/dL Normal 0.40-1.60 [facility] Comment on above: Performed By: #### 2 4323-8 ####MELISA Galvan ([id number])[facility] ()[address] [place] [address] GFR/1.73 sq M.predicted MDRD (S/P/Bld) [Vol rate/Area] mL/min/{1.73_m2} Normal >60 [facility] Comment on above: Result Comment: Calc ulations of estimated GFR are performed using the 2020 CKD-EPI Study Refit equation without the race variable for the IDMS-Traceable creatinine methods. https://jasn.asnjournals.org/content//ASN.16364850 88 Performed By: #### 2 4323-8 ####MELISA Galvan ([id number])[facility] ()[address] [place] [address] Glucose [Mass/Vol] 136 mg/dL High 65-99 [facility] Comment on above: Performed By: #### 2 4323-8 ####MELISA Galvan ([id number])[facility] ()[address] [place] [address] Potassium [Moles/Vol] 3.9 mmol/L Normal 3.4-5.1 [facility] Comment on above: Performed By: #### 2 4323-8 ####MELISA Galvan ([id number])[facility] ()[address] [place] [address] Protein [Mass/Vol] 6.3 g/dL Normal 5.9-7.9 [facility] Comment on above: Performed By: #### 2 4323-8 ####MELISA Galvan ([id number])[facility] ()[address] [place] [address] Sodium [Moles/Vol] 137 mmol/L Normal 133-145 [facility] Comment on above: Performed By: #### 2 4323-8 ####MELISA Galvan ([id number])[facility] ()[address] [place] [address] Urea nitrogen [Mass/Vol] 14 mg/dL Normal 8-25 [facility] Comment on above: Performed By: #### 2 4323-8 ####MELISA Galvan ([id number])[facility] ()[address] [facility] [place] [address] Extra Urine [place] Tubeon 06-15 Extra Tube Hold for add-ons. [facility] Comment on above: Auto resulted. [facility] Glucose Test strip manual (B ld) [Mass/Vol]on 06-30-2023 Glucose [Mass/Vol] 117 mg/dL High 74 - 99 mg/dL [facility] Interpretation and review of laboratory results Abnormal [facility] Glucose [Mass/Vol] 117 mg/dL High 74-99 [facility] Comment on above: Performed By: #### 2 341-6 ####MELISA Galvan ([id number])[facility] ()[address] [address] Glucose [Mass/Vol] 77 mg/dL 74 - 99 mg/dL [facility] Interpretation and review of laboratory results Normal [facility] Glucose [Mass/Vol] 77 mg/dL Normal 74-99 [facility] Comment on above: Performed By: #### 2 341-6 ####MELISA Galvan ([id number])[facility] ()[address] [place] [address] HCG ( test) IA.rapi d Ql (U)Ordered By: Agustin Cedillo on 06-30-2023 HCG ( test) Ql (U) Negative NEGATIVE [facility] Interpretation and review of laboratory results Normal [facility] HCG ( test) IA.rapi d Ql (U)on 06-30-2023 HCG ( test) Ql (U) Negative Normal NEGATIVE [facility] Comment on above: Performed By: #### 8 0384-1 ####MELISA Galvan ([id number])[facility] ()[address] [place] [address] Magnesiumon 06-30-2023 Magnesium [Mass/Vol] 1.90 mg/dL 1.60 - 3.10 mg/dL [facility] Magnesium [Mass/Vol] 1.90 mg/dL Normal 1.60-3.10 [facility] Comment on above: Performed By: #### 1 9123-9 ####MELISA Galvan ([id number])[facility] ()[address] [place] [address] No Panel Informationon 06-29 Interpretation and review of laboratory results Normal [facility] Phosphateon 06-30-2023 Phosphate [Mass/Vol] 4.4 mg/dL Normal 2.5-4.5 [facility] Comment on above: Performed By: #### 2 777-1 ####MELISA Galvan ([id number])[facility] ()[address] [place] [address] Phosphoruson 06-30-2023 Phosphate [Mass/Vol] 4.4 mg/dL 2.5 - 4.5 mg/dL [facility] Urinalysis complete W Reflex Culture panel (U)on 06-30-2023 Appearance (U) Clear Clear [facility] Bilirubin (U) [Mass/Vol] Negative NEGATIVE [facility] Color (U) Light-Yellow Light-Yellow, Yellow, Dark-Yellow [facility] Glucose Auto test strip (U) [Mass/Vol] Normal Normal mg/dL [facility] Interpretation and review of laboratory results Normal [facility] Ketones (U) [Mass/Vol] Negative NEGATIVE mg/dL [facility] Leukocyte esterase Auto test strip Ql (U) Negative NEGATIVE [facility] Nitrite Auto test strip Ql (U) Negative NEGATIVE [facility] pH (U) 6.0 [pH] 5.0, 5.5, 6.0, 6.5, 7.0, 7.5, 8.0 [facility] Protein (U) [Mass/Vol] Negative NEGATIVE, 10 (TRACE), 20 (TRACE) mg/dL [facility] RBC (U) [#/Vol] Negative NEGATIVE [facility] Specific gravity (U) [Rel density] 1.023 1.005 - 1.035 [facility] Urobilinogen (U) [Mass/Vol] Normal Normal mg/dL [facility] Appearance (U) Clear Normal Clear [facility] Comment on above: Performed By: #### 5 8077-9 ####MELISA Galvan ()[facility] ()[address] [place] [address] Bilirubin (U) [Mass/Vol] Negative Normal NEGATIVE [facility] Comment on above: Performed By: #### 5 8077-9 ####MELISA Galvan ()[facility] ()[address] [place] [address] Color (U) Light-Yellow Normal Light-Yellow, Yellow, Dark-Yellow [facility] Comment on above: Performed By: #### 5 8077-9 ####MELISA Galvan ()[facility] ()[address] [place] [address] Glucose Auto test strip (U) [Mass/Vol] Normal Normal Normal [facility] Comment on above: Performed By: #### 5 8077-9 ####EMLISA Galvan ()[facility] ()[address] [place] [address] Ketones (U) [Mass/Vol] Negative Normal NEGATIVE [facility] Comment on above: Performed By: #### 5 8077-9 ####MELISA Galvan ()[facility] ()[address] [place] [address] Leukocyte esterase Auto test strip Ql (U) Negative Normal NEGATIVE [facility] Comment on above: Performed By: #### 5 8077-9 ####MELISA Galvan ()[facility] ()[address] [place] [address] Nitrite Auto test strip Ql (U) Negative Normal NEGATIVE [facility] Comment on above: Performed By: #### 5 8077-9 ####MELISA Galvan ()[facility] ()[address] [place] [address] pH (U) 6.0 [pH] Normal 5.0, 5.5, 6.0, 6.5, 7.0, 7.5, 8.0 [facility] Comment on above: Performed By: #### 5 8077-9 ####MELISA Galvan ([id number])[facility] ()[address] [place] [address] Protein (U) [Mass/Vol] Negative Normal NEGATIVE, 10 (TRACE), 20 (TRACE) [facility] Comment on above: Performed By: #### 5 8077-9 ####MELISA Galvan ([id number])[facility] ()[address] [place] [address] RBC (U) [#/Vol] Negative Normal NEGATIVE [facility] Comment on above: Performed By: #### 5 8077-9 ####MELISA Galvan ([id number])[facility] ()[address] [place] [address] Specific gravity (U) [Rel density] 1.023 Normal 1.005-1.035 [facility] Comment on above: Performed By: #### 5 8077-9 ####MELISA Galvan ([id number])[facility] ()[address] [place] [address] Urobilinogen (U) [Mass/Vol] Normal Normal Normal [facility] Comment on above: Performed By: #### 5 8077-9 ####MELISA Galvan ([id number])[facility] ()[address] [place] [address] VASC US MESENTERIC ARTERY DU PLEX COMPLETEon 06-30-2023 VASC US MESENTERIC ARTERY DUPLEX COMPLETE [facility] [address] [place] [address] Vascular Lab Report VASC US MESENTERIC ARTERY DUPLEX COMPLETE Patient Name: ABBEY FloresRenetta Oneil Physician: [id number] Sherry Magaña MD Study Date: 06/30/2023 Ordering Provider: [id number] JAMIL GAVIN MRN/PID: [id number] Fellow: Technologist: Leia Degroot RVT Date of /Age: 2 1990 / 33 years Technologist 2: Gender: F Admission Status: Inpatient Location Performed: [facility] 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 CPT Codes: 84343 Mesenteric Duplex scan Pertinent Release of the [...] PSV 89 cm/s KEELY PSV 105 cm/s Brnady Magaña MD Brandy Magaña MD Electronically Amended 06/30/2023, 12:15 PM Final (Amended) Normal [facility] Vascular US mesenteric arter y duplex completeon 06-30-2023 Radiology Study observation (narrative) [facility] Work Phone: Basic metabolic 2000 panelon 06-29-2023 Anion gap [Moles/Vol] 12 mmol/L NINF - 19 mmol/L [facility] Calcium [Mass/Vol] 8.6 mg/dL 8.5 - 10.4 mg/dL [facility] Chloride [Moles/Vol] 105 mmol/L 97 - 107 mmol/L [facility] CO2 [Moles/Vol] 21 mmol/L Low 24 - 31 mmol/L [facility] Creatinine [Mass/Vol] 0.60 mg/dL 0.40 - 1.60 mg/dL [facility] eGFR - PINF [facility] Comment on above: Calculations of jessica mated GFR are performed using the 2020 CKD-EPI Study Refit equation without the race variable for the IDMS-Traceable creatinine methods. https://jasn.asnjournals.org/content/early//ASN.56434513 88 Glucose [Mass/Vol] 106 mg/dL High 65 - 99 mg/dL [facility] Interpretation and review of laboratory results Abnormal [facility] Potassium [Moles/Vol] 3.9 mmol/L 3.4 - 5.1 mmol/L [facility] Sodium [Moles/Vol] 138 mmol/L 133 - 145 mmol/L [facility] Urea nitrogen [Mass/Vol] 16 mg/dL 8 - 25 mg/dL [facility] Anion gap [Moles/Vol] 12 mmol/L Normal <=19 [facility] Comment on above: Performed By: #### V ERAB #### MELISA Galvan ([id number]) [facility] ([facility]) [id number] [place] [address] [place] Calcium [Mass/Vol] 8.6 mg/dL Normal 8.5-10.4 [facility] Comment on above: Performed By: #### V ERAB #### MELISA Galvan ([id number]) [facility] ([facility]) [id number] [place] [address] [place] Chloride [Moles/Vol] 105 mmol/L Normal 97-107 [facility] Comment on above: Performed By: #### V ERAB #### MELISA Galvan ([id number]) [facility] ([facility]) [address] [place] [address] [place] CO2 [Moles/Vol] 21 mmol/L Low 24-31 [facility] Comment on above: Performed By: #### V ERAB #### MELISA Galvan ([id number]) [facility] ([facility]) [address] [place] [address] [place] Creatinine [Mass/Vol] 0.60 mg/dL Normal 0.40-1.60 [facility] Comment on above: Performed By: #### V ERAB #### MELISA Galvan ([id number]) [facility] ([facility]) [address] [place] [address] [place] GFR/1.73 sq M.predicted MDRD (S/P/Bld) [Vol rate/Area] mL/min/{1.73_m2} Normal >60 [facility] Comment on above: Result Comment: Calc ulations of estimated GFR are performed using the 2020 CKD-EPI Study Refit equation without the race variable for the IDMS-Traceable creatinine methods. https://jasn.asnjournals.org/content/early/ASN.17270468 88 Performed By: #### V ERAB #### MELISA Galvan ([id number]) [facility] ([facility]) [address] [place] [address] [place] Glucose [Mass/Vol] 106 mg/dL High 65-99 [facility] Comment on above: Performed By: #### V ERAB #### MELISA Galvan ([id number]) [facility] ([facility]) [address] [place] [address] [place] Potassium [Moles/Vol] 3.9 mmol/L Normal 3.4-5.1 [facility] Comment on above: Performed By: #### V ERAB #### MELSIA Galvan ([id number]) [facility] ([facility]) [address] [place] [address] [place] Sodium [Moles/Vol] 138 mmol/L Normal 133-145 [facility] Comment on above: Performed By: #### V ERAB #### MELISA POOLESarwat Galvan ([id number]) [facility] ([facility]) [address] [place] [id number] [place] Urea nitrogen [Mass/Vol] 16 mg/dL Normal 8-25 [facility] Comment on above: Performed By: #### V ERAB #### MELISA MC Mnady ([id number]) [facility] ([facility]) [address] [place] [id number] [place] CBC W Auto Differential pane l (Bld)on 06-29-2023 Basophils (Bld) [#/Vol] 0.03 10*3/uL [facility] Basophils/100 WBC (Bld) 0.6 % 0.0 - 2.0 % [facility] Eosinophils (Bld) [#/Vol] 0.01 10*3/uL [facility] Eosinophils/100 WBC (Bld) 0.2 % 0.0 - 6.0 % [facility] Erythrocyte distribution width (RBC) [Ratio] 13.8 % 11.5 - 14.5 % [facility] Hematocrit (Bld) [Volume fraction] 32.2 % Low 36.0 - 46.0 % [facility] Hemoglobin (Bld) [Mass/Vol] 10.3 g/dL Low 12.0 - 16.0 g/dL [facility] Immature granulocytes (Bld) [#/Vol] 0.01 10*3/uL [facility] Immature granulocytes/100 WBC (Bld) 0.2 % 0.0 - 0.9 % [facility] Comment on above: Immature Granulocyte Count (IG) includes promyelocytes, myelocytes and metamyelocytes but does not include bands. Percent differential counts (%) should be interpreted in the context of the absolute cell counts (cells/UL). Interpretation and review of laboratory results Abnormal [facility] Lymphocytes (Bld) [#/Vol] 1.15 10*3/uL Low [facility] Lymphocytes/100 WBC (Bld) 23.1 % 13.0 - 44.0 % [facility] MCH (RBC) [Entitic mass] 31.2 pg 26.0 - 34.0 pg [facility] MCHC (RBC) [Mass/Vol] 32.0 g/dL 32.0 - 36.0 g/dL [facility] MCV (RBC) [Entitic vol] 98 fL 80 - 100 fL [facility] Monocytes (Bld) [#/Vol] 0.20 10*3/uL [facility] Monocytes/100 WBC (Bld) 4.0 % 2.0 - 10.0 % [facility] Neutrophils (Bld) [#/Vol] 3.57 10*3/uL [facility] Comment on above: Percent differential counts (%) should be interpreted in the context of the absolute cell counts (cells/uL). Neutrophils/100 WBC (Bld) 71.9 % 40.0 - 80.0 % [facility] Nucleated RBC/100 WBC (Bld) [Ratio] 0.0 % [facility] Platelets (Bld) [#/Vol] 231 10*3/uL [facility] RBC (Bld) [#/Vol] 3.30 10*6/uL Low [facility] WBC (Bld) [#/Vol] 5.0 10*3/uL [facility] Basophils (Bld) [#/Vol] 0.03 x10*3/uL Normal 0.00-0.10 [facility] Comment on above: Performed By: #### V ERAB #### MELISA Galvan ([id number]) [facility] ([facility]) [address] [place] [address] [place] Basophils/100 WBC (Bld) 0.6 % Normal 0.0-2.0 [facility] Comment on above: Performed By: #### V ERAB #### MELISA Galvan ([id number]) [facility] ([facility]) [address] [place] [address] [place] Eosinophils (Bld) [#/Vol] 0.01 x10*3/uL Normal 0.00-0.70 [facility] Comment on above: Performed By: #### V ERAB #### MELISA Galvan ([id number]) [facility] ([facility]) [address] [place] [address] [place] Eosinophils/100 WBC (Bld) 0.2 % Normal 0.0-6.0 [facility] Comment on above: Performed By: #### V ERAB #### MELISA Galvan ([id number]) [facility] ([facility]) [address] [place] [address] [place] Erythrocyte distribution width (RBC) [Ratio] 13.8 % Normal 11.5-14.5 [facility] Comment on above: Performed By: #### V ERAB #### MELISA Galvan ([id number]) [facility] ([facility]) [address] [place] [address] [place] Hematocrit (Bld) [Volume fraction] 32.2 % Low 36.0-46.0 [facility] [facility] Comment on above: Performed By: #### V ERAB #### MELISA Galvan ([id number]) [facility] ([facility]) [address] [place] [address] [place] Hemoglobin (Bld) [Mass/Vol] 10.3 g/dL Low 12.0-16.0 [facility] [place] Comment on above: Performed By: #### V ERAB #### MELISA Galvan ([id number]) [facility] ([facility]) [address] [place] [address] [place] Immature granulocytes (Bld) [#/Vol] 0.01 x10*3/uL Normal 0.00-0.70 [facility] [place] Comment on above: Performed By: #### V ERAB #### MELISA Galvan ([id number]) [facility] ([facility]) [address] [place] [address] [place] Immature granulocytes/100 WBC (Bld) 0.2 % Normal 0.0-0.9 [facility] [place] Comment on above: Result Comment: Janny ture Granulocyte Count (IG) includes promyelocytes, myelocytes and metamyelocytes but does not include bands. Percent differential counts (%) should be interpreted in the context of the absolute cell counts (cells/UL). Performed By: #### V ERAB #### MELISA Galvan ([id number]) [facility] ([facility]) [address] [place] [address] [place] Lymphocytes (Bld) [#/Vol] 1.15 x10*3/uL Low 1.20-4.80 [facility] [place] Comment on above: Performed By: #### V ERAB #### MELISA Galvan ([id number]) [facility] ([facility]) [address] [place] [address] [place] Lymphocytes/100 WBC (Bld) 23.1 % Normal 13.0-44.0 [facility] Comment on above: Performed By: #### V ERAB #### MELISA Galvan ([id number]) [facility] ([facility]) [address] [place] [address] [place] MCH (RBC) [Entitic mass] 31.2 pg Normal 26.0-34.0 [facility] [place] Comment on above: Performed By: #### V ERAB #### MELISA Galvan ([id number]) [facility] ([facility]) [address] [place] [address] US MCHC (RBC) [Mass/Vol] 32.0 g/dL Normal 32.0-36.0 [facility] [place] Comment on above: Performed By: #### V ERAB #### MELISA Galvan ([id number]) [facility] ([facility]) [address] [place] [address] [place] MCV (RBC) [Entitic vol] 98 fL Normal 80-100 [facility] [place] Comment on above: Performed By: #### V ERAB #### MELISA Galvan ([id number]) [facility] ([facility]) [address] [place] [address] [place] Monocytes (Bld) [#/Vol] 0.20 x10*3/uL Normal 0.10-1.00 [facility] [place] Comment on above: Performed By: #### V ERAB #### MELISA Galvan ([id number]) [facility] ([facility]) [address] [place] [address] [place] Monocytes/100 WBC (Bld) 4.0 % Normal 2.0-10.0 [facility] [place] Comment on above: Performed By: #### V ERAB #### MELISA Galvan ([id number]) [facility] ([facility]) [address] [place] [address] [place] Neutrophils (Bld) [#/Vol] 3.57 x10*3/uL Normal 1.20-7.70 [facility] [place] Comment on above: Result Comment: Perc ent differential counts (%) should be interpreted in the context of the absolute cell counts (cells/uL). Performed By: #### V ERAB #### MELISA Galvan ([id number]) [facility] ([facility]) [address] [place] [address] [place] Neutrophils/100 WBC (Bld) 71.9 % Normal 40.0-80.0 [facility] [place] Comment on above: Performed By: #### V ERAB #### MELISA Galvan ([id number]) [facility] ([facility]) [address] [place] [address] [place] Nucleated RBC/100 WBC (Bld) [Ratio] 0.0 /100 WBCs Normal 0.0-0.0 [facility] [place] Comment on above: Performed By: #### V ERAB #### MELISA Galvan ([id number]) [facility] ([facility]) [address] [place] [address] [place] Platelets (Bld) [#/Vol] 231 x10*3/uL Normal 150-450 [facility] [place] Comment on above: Performed By: #### V ERAB #### MELISA Galvan ([id number]) [facility] ([facility]) [address] [place] [address] [place] RBC (Bld) [#/Vol] 3.30 x10*6/uL Low 4.00-5.20 [facility] Comment on above: Performed By: #### V ERAB #### MELISA Galvan ([id number]) [facility] ([facility]) [address] [place] [address] US WBC (Bld) [#/Vol] 5.0 x10*3/uL Normal 4.4-11.3 [facility] Comment on above: Performed By: #### Beth ERAB #### MELISA Galvan ([id number]) [facility] ([facility]) [id number] [place] [address] [place] CBC panel Auto (Bld)on 06-28 Erythrocyte distribution width (RBC) [Ratio] 13.7 % 11.5 - 14.5 % [facility] Hematocrit (Bld) [Volume fraction] 32.7 % Low 36.0 - 46.0 % [facility] Hemoglobin (Bld) [Mass/Vol] 11.0 g/dL Low 12.0 - 16.0 g/dL [facility] Interpretation and review of laboratory results Abnormal [facility] MCH (RBC) [Entitic mass] 30.7 pg 26.0 - 34.0 pg [facility] MCHC (RBC) [Mass/Vol] 33.6 g/dL 32.0 - 36.0 g/dL [facility] MCV (RBC) [Entitic vol] 91 fL 80 - 100 fL [facility] Nucleated RBC/100 WBC (Bld) [Ratio] 0.0 % [facility] Platelets (Bld) [#/Vol] 246 10*3/uL [facility] RBC (Bld) [#/Vol] 3.58 10*6/uL Low [facility] WBC (Bld) [#/Vol] 5.2 10*3/uL [facility] Erythrocyte distribution width (RBC) [Ratio] 13.7 % Normal 11.5-14.5 [facility] [place] Comment on above: Performed By: #### V ERAB #### MELISA Galvna ([id number]) [facility] ([facility]) [address] [place] [address] [place] Hematocrit (Bld) [Volume fraction] 32.7 % Low 36.0-46.0 [facility] [place] Comment on above: Performed By: #### V ERAB #### MELISA Galvan ([id number]) [facility] ([facility]) [address] [place] [address] US Hemoglobin (Bld) [Mass/Vol] 11.0 g/dL Low 12.0-16.0 [facility] [place] Comment on above: Performed By: #### V ERAB #### MELISA Galvan ([id number]) [facility] ([facility]) [address] [place] [address] US MCH (RBC) [Entitic mass] 30.7 pg Normal 26.0-34.0 [facility] [place] Comment on above: Performed By: #### V ERAB #### MELISA Galvan () [facility] ([facility]) [address] [place] [address] US MCHC (RBC) [Mass/Vol] 33.6 g/dL Normal 32.0-36.0 [facility] [place] Comment on above: Performed By: #### V ERAB #### MLEISA Galvan () [facility] ([facility]) [address] [place] [address] US MCV (RBC) [Entitic vol] 91 fL Normal 80-100 [facility] [place] Comment on above: Performed By: #### Beth ERAB #### MELISA Galvan () [facility] ([facility]) [address] [place] [address] [place] Nucleated RBC/100 WBC (Bld) [Ratio] 0.0 /100 WBCs Normal 0.0-0.0 [facility] Comment on above: Performed By: #### V ERAB #### MELISA Galvan () [facility] ([facility]) [address] [place] [address] [place] Platelets (Bld) [#/Vol] 246 x10*3/uL Normal 150-450 [facility] [place] Comment on above: Performed By: #### V ERAB #### MELISA Galvan () [facility] ([facility]) [address] [place] [address] US RBC (Bld) [#/Vol] 3.58 x10*6/uL Low 4.00-5.20 [facility] Comment on above: Performed By: #### V ERAB #### MELISA Galvan ([id number]) [facility] ([facility]) [address] [place] [address] US WBC (Bld) [#/Vol] 5.2 x10*3/uL Normal 4.4-11.3 [facility] Comment on above: Performed By: #### V ERAB #### MELISA Galvan ([id number]) [facility] ([facility]) [address] [place] [address] ABDOMEN PELVIS WO IV CONT [facility] 06-29-2023 CT ABDOMEN PELVIS WO IV CONTRAST Interpreted By: Fly West, STUDY: CT ABDOMEN PELVIS WO IV CONTRAST; 06/29/2023 11:09 pm INDICATION: Signs/Symptoms:Abdo kerry pain. COMPARISON: 03/16/2023 ACCESSION NUMBER(S): [id number] ORDERING CLINICIAN: DAVID VALADEZ TECHNIQUE: Axial CT [...] Fly West 06/29/2023 11:53 PM Dictation workstation: [id number] [facility] CT Abdomen WO contraston 1. No acute abdominal or pelvic process. 2. Numerous hepatic hypodense lesions, incompletely characterize, though likely reflecting cysts. Appearance is similar to 03/16/2023. 3. Postsurgical changes as above. Signed by: Fly West 06/29/2023 11:53 PM Dictation workstation: [id number] Interpreted By: Fly West, STUDY: CT ABDOMEN PELVIS WO IV CONTRAST; 06/29/2023 11:09 pm INDICATION: Signs/Symptoms:Abdo kerry pain. COMPARISON: 03/16/2023 ACCESSION NUMBER(S): [id number] ORDERING CLINICIAN: DAVID VALADEZ TECHNIQUE: Axial CT [...] Signs/Symptoms:Abdo kerry pain. COMPARISON: 03/16/2023 ACCESSION NUMBER(S): [id number] ORDERING CLINICIAN: DAVID VALADEZ TECHNIQUE: Axial CT [...] Fly West 06/29/2023 11:53 PM Dictation workstation: [id number] [facility] Work Phone: Radiology Study observation (narrative) [facility] Work Phone: CT Abdomen WO contrastOrdere d By: Fly West on 06-29-2023 [facility] Work Phone: Comprehensive metabolic 2000 panelon 06-29-2023 Albumin [Mass/Vol] 3.8 g/dL Normal 3.5-5.0 [facility] Comment on above: Performed By: #### V ERAB #### MELISA Galvan () [facility] ([facility]) [address] [place] [address] [place] ALP (Bld) [Catalytic activity/Vol] 51 U/L Normal 35-125 [facility] Comment on above: Performed By: #### V ERAB #### MELISA Galvan () [facility] ([facility]) [address] [place] [address] US ALT [Catalytic activity/Vol] 35 U/L Normal 5-40 [facility] Comment on above: Performed By: #### V ERAB #### MELISA Galvan () [facility] ([facility]) [address] [place] [address] [place] Anion gap [Moles/Vol] 13 mmol/L Normal <=19 [facility] [place] Comment on above: Performed By: #### V ERAB #### MELISA Galvan () [facility] ([facility]) [address] [place] [address] US AST [Catalytic activity/Vol] 52 U/L High 5-40 [facility] [place] Comment on above: Performed By: #### V ERAB #### MELISA Galvan () [facility] ([facility]) [address] [place] [address] [place] Bilirubin [Mass/Vol] mg/dL Normal 0.1-1.2 [facility] Comment on above: Performed By: #### V ERAB #### MELISA Galvan () [facility] ([facility]) [address] [place] [address] US Calcium [Mass/Vol] 9.1 mg/dL Normal 8.5-10.4 [facility] Comment on above: Performed By: #### V ERAB #### MELISA Galvan () [facility] ([facility]) [address] [place] [address] [place] Chloride [Moles/Vol] 90 mmol/L Low 97-107 [facility] [place] Comment on above: Performed By: #### V ERAB #### MELISA Galvan ([id number]) [facility] ([facility]) [address] [place] [address] US CO2 [Moles/Vol] 19 mmol/L Low 24-31 [facility] Comment on above: Performed By: #### V ERAB #### MELISA Galvan ([id number]) [facility] ([facility]) [address] [place] [address] [place] Creatinine [Mass/Vol] 0.70 mg/dL Normal 0.40-1.60 [facility] Comment on above: Performed By: #### V ERAB #### MELISA Galvan ([id number]) [facility] ([facility]) [address] [place] [address] US GFR/1.73 sq M.predicted MDRD (S/P/Bld) [Vol rate/Area] mL/min/{1.73_m2} Normal >60 [facility] Comment on above: Result Comment: Calc ulations of estimated GFR are performed using the 2020 CKD-EPI Study Refit equation without the race variable for the IDMS-Traceable creatinine methods. https://jasn.asnjournals.org/content/early/ASN.07797980 88 Performed By: #### V ERAB #### MELISA Galvan ([id number]) [facility] ([facility]) [address] [place] [address] [place] Glucose [Mass/Vol] 920 mg/dL Critically high 65-99 U [facility] Comment on above: Result Comment: Resu lt rechecked Possible IV contamination. Results do not correlate with previous and post results. Patient was redraw . Performed By: #### V ERAB #### MELISA Galvan ([id number]) [facility] ([facility]) [address] [place] [address] [place] Potassium [Moles/Vol] 6.8 mmol/L Critically high 3.4-5.1 [facility] Comment on above: Result Comment: Resu lt rechecked Possible IV contamination. Results do not correlate with previus and post results. Patient was redrawn. Performed By: #### V ERAB #### MELISA Galvan ([id number]) [facility] ([facility]) [address] [place] [address] [place] Protein [Mass/Vol] 6.3 g/dL Normal 5.9-7.9 [facility] Comment on above: Performed By: #### V ERAB #### MELISA Galvan ([id number]) [facility] ([facility]) [address] [place] [address] [place] Sodium [Moles/Vol] 122 mmol/L Low 133-145 [facility] Comment on above: Result Comment: Resu lt rechecked Performed By: #### V ERAB #### MELISA Galvan ([id number]) [facility] ([facility]) [address] [place] [address] [place] Urea nitrogen [Mass/Vol] 15 mg/dL Normal 8-25 [facility] Comment on above: Performed By: #### V ERAB #### MELISA Galvan ([id number]) [facility] ([facility]) [address] [place] [address] [place] Glucose Test strip manual (B ld) [Mass/Vol]on 06-29-2023 Glucose [Mass/Vol] 117 mg/dL High 74 - 99 mg/dL [facility] Interpretation and review of laboratory results Abnormal [facility] Glucose [Mass/Vol] 117 mg/dL High 74-99 [facility] Comment on above: Performed By: #### V ERAB #### MELISA Galvan ([id number]) [facility] ([facility]) [address] [place] [address] [place] [facility] 2023 Home Health Records [id number] 8#1.00TIFF Normal [facility] Auth for Release of Medical Recordson 06-23-2023 Auth for Release of Medical Records [id number] B#1.00TIFF Normal [facility] ED Note-Physicianon 06-23-19 ED Note-Physician [id number] D5#1.00TIFF Normal [facility] ED Note-Physicianon 06-22-19 24 ED Note-Physician [id number] 906#1.00TIFF Normal [facility] ED Note-Physician [id number] 15#1.00TIFF Normal [facility] Lab Reportson 06-22-2023 Lab Reports [id number] 447#1.00TIFF [facility] Provider Letteron 06-22-2023 Provider Letter [facility] RAD - CT Reporton 06-22-2023 RAD - CT Report [id number] 594#1.00TIFF [facility] Home Health Recordson 2023 Home Health Records [id number] 00#1.00TIFF [facility] ALLIED HEALTHon 06-18-2023 ALLIED HEALTH Normal [facility] CBC W Auto Differential pane l (Bld)on 06-18-2023 Basophils (Bld) [#/Vol] 0.04 10*3/uL Normal <0.11 [facility] Comment on above: Order Comment: Speci men Type: BLOOD SPECIMENOrdering Facility: [facility] Address: [address] [place] [address] Performed By: #### 5 7021-8 ####[facility] LABORATORYCLIA [id number] [place] [address] [place] Basophils/100 WBC (Bld) 0.8 % Normal [facility] Comment on above: Order Comment: Speci men Type: BLOOD SPECIMENOrdering Facility: [facility] Address: [address] [place], [place] [address] Performed By: #### 5 7021-8 ####[facility] LABORATORYCLIA [id number] [place] [id number] [place] Differential cell count method Nom (Bld) Auto Normal [facility] Comment on above: Order Comment: Speci men Type: BLOOD SPECIMENOrdering Facility: [facility] Address: [address] [place] [address] Performed By: #### 5 7021-8 ####[facility] LABORATORYCLIA [id number] [place] [address] [place] Eosinophils (Bld) [#/Vol] 0.13 10*3/uL Normal <0.46 [facility] Comment on above: Order Comment: Speci men Type: BLOOD SPECIMENOrdering Facility: [facility] Address: [address] [place] [address] Performed By: #### 5 7021-8 ####[facility] LABORATORYCLIA [id number] [place] [address] [place] Eosinophils/100 WBC (Bld) 2.8 % Normal [facility] Comment on above: Order Comment: Speci men Type: BLOOD SPECIMENOrdering Facility: [facility] Address: [address] [place] [address] Performed By: #### 5 7021-8 ####[facility] LABORATORYCLIA [id number] [address] [place] Erythrocyte distribution width (RBC) [Ratio] 13.3 % Normal 11.5-15.0 [facility] Comment on above: Order Comment: Speci men Type: BLOOD SPECIMENOrdering Facility: [facility] Address: [address] [place] [address] Performed By: #### 5 7021-8 ####[facility] LABORATORYCLIA [id number] [address] [place] Hematocrit (Bld) [Volume fraction] 34.6 % Low 36.0-46.0 [facility] Comment on above: Order Comment: Speci men Type: BLOOD SPECIMENOrdering Facility: [facility] Address: [address] [place] [address] Performed By: #### 5 7021-8 ####[facility] LABORATORYCLIA [id number] [place] [id number] [place] Hemoglobin (Bld) [Mass/Vol] 12.0 g/dL Normal 11.5-15.5 [facility] Comment on above: Order Comment: Speci men Type: BLOOD SPECIMENOrdering Facility: [facility] Address: [address] [place] [address] Performed By: #### 5 7021-8 ####[facility] LABORATORYCLIA [id number] [place] [id number] [place] Immature granulocytes (Bld) [#/Vol] 10*3/uL Normal <0.10 [facility] Comment on above: Order Comment: Speci men Type: BLOOD SPECIMENOrdering Facility: [facility] Address: [address] [place] [address] Performed By: #### 5 7021-8 ####[facility] LABORATORYCLIA [id number] [place] [id number] [place] Immature granulocytes/100 WBC (Bld) 0.2 % Normal [facility] Comment on above: Order Comment: Speci men Type: BLOOD SPECIMENOrdering Facility: [facility] Address: [address] [place] [address] Performed By: #### 5 7021-8 ####[facility] LABORATORYCLIA [id number] [place] [id number] [place] Lymphocytes (Bld) [#/Vol] 1.90 10*3/uL Normal 1.00-4.00 [facility] Comment on above: Order Comment: Speci men Type: BLOOD SPECIMENOrdering Facility: [facility] Address: [address] [place] [address] Performed By: #### 5 7021-8 ####[facility] LABORATORYCLIA [id number] [place] [id number] [place] Lymphocytes/100 WBC (Bld) 40.3 % Normal [facility] Comment on above: Order Comment: Speci men Type: BLOOD SPECIMENOrdering Facility: [facility] Address: [address] [place] [address] Performed By: #### 5 7021-8 ####[facility] LABORATORYCLIA [id number] [address] MCH (RBC) [Entitic mass] 30.9 pg Normal 26.0-34.0 [facility] Comment on above: Order Comment: Speci men Type: BLOOD SPECIMENOrdering Facility: [facility] Address: [address] [place] [address] Performed By: #### 5 7021-8 ####[facility] LABORATORYCLIA [id number] [address] MCHC (RBC) [Mass/Vol] 34.7 g/dL Normal 30.5-36.0 [facility] Comment on above: Order Comment: Speci men Type: BLOOD SPECIMENOrdering Facility: [facility] Address: [address] [place] [address] Performed By: #### 5 7021-8 ####[facility] LABORATORYCLIA [id number] [address] [place] MCV (RBC) [Entitic vol] 89.2 fL Normal 80.0-100.0 [facility] Comment on above: Order Comment: Speci men Type: BLOOD SPECIMENOrdering Facility: [facility] Address: [address] [place] [address] Performed By: #### 5 7021-8 ####[facility] LABORATORYCLIA [id number] [address] Monocytes (Bld) [#/Vol] 0.24 10*3/uL Normal <0.87 [facility] Comment on above: Order Comment: Speci men Type: BLOOD SPECIMENOrdering Facility: [facility] Address: [address] [place] [address] Performed By: #### 5 7021-8 ####[facility] LABORATORYCLIA [id number] [address] Monocytes/100 WBC (Bld) 5.1 % Normal [facility] Comment on above: Order Comment: Speci men Type: BLOOD SPECIMENOrdering Facility: [facility] Address: [address] [place] [address] Performed By: #### 5 7021-8 ####[facility] LABORATORYCLIA [id number] [place] [id number] [place] Neutrophils (Bld) [#/Vol] 2.39 10*3/uL Normal 1.45-7.50 [facility] Comment on above: Order Comment: Speci men Type: BLOOD SPECIMENOrdering Facility: [facility] Address: [address] [place] [address] Performed By: #### 5 7021-8 ####[facility] LABORATORYCLIA [id number] [place] [id number] [place] Neutrophils/100 WBC (Bld) 50.8 % Normal [facility] Comment on above: Order Comment: Speci men Type: BLOOD SPECIMENOrdering Facility: [facility] Address: [address] [place] [address] Performed By: #### 5 7021-8 ####[facility] LABORATORYCLIA [id number] [place] [id number] [place] Nucleated RBC (Bld) [#/Vol] 10*3/uL Normal <0.01 [facility] Comment on above: Order Comment: Speci men Type: BLOOD SPECIMENOrdering Facility: [facility] Address: [address] [place] [address] Performed By: #### 5 7021-8 ####[facility] LABORATORYCLIA [id number] [place] [id number] [place] Nucleated RBC/100 WBC (Bld) [Ratio] 0.0 /100 WBC Normal [facility] Comment on above: Order Comment: Speci men Type: BLOOD SPECIMENOrdering Facility: [facility] Address: [address] [place] [address] Performed By: #### 5 7021-8 ####[facility] LABORATORYCLIA [id number] [place] [id number] [place] Platelet mean volume (Bld) [Entitic vol] 11.4 fL Normal 9.0-12.7 [facility] Comment on above: Order Comment: Speci men Type: BLOOD SPECIMENOrdering Facility: [facility] Address: [address] [place] [address] Performed By: #### 5 7021-8 ####[facility] LABORATORYCLIA [id number] [place] [id number] [place] Platelets (Bld) [#/Vol] 233 10*3/uL Normal 150-400 [facility] Comment on above: Order Comment: Speci men Type: BLOOD SPECIMENOrdering Facility: [facility] Address: [address] [place] [address] Performed By: #### 5 7021-8 ####[facility] LABORATORYCLIA [id number] [place] [address] [place] RBC (Bld) [#/Vol] 3.88 10*6/uL Low 3.90-5.20 [facility] Comment on above: Order Comment: Speci men Type: BLOOD SPECIMENOrdering Facility: [facility] Address: [address] [place] [address] Performed By: #### 5 7021-8 ####[facility] LABORATORYCLIA [id number] [place] [address] [place] WBC (Bld) [#/Vol] 4.71 10*3/uL Normal 3.70-11.00 [facility] Comment on above: Order Comment: Speci men Type: BLOOD SPECIMENOrdering Facility: [facility] Address: [address] [place] [address] Performed By: #### 5 7021-8 ####[facility] LABORATORYCLIA [id number] [place] [id number] [place] CNOVon 06-18-2023 CNOV Normal [facility] CONSULTon 06-18-2023 CONSULT Normal [facility] CT ABD/PEL W IVCONon 024 CT ABD/PEL W IVCON Normal [facility] Comprehensive metabolic 2000 panelon 06-18-2023 Albumin [Mass/Vol] 4.5 g/dL Normal 3.9-4.9 [facility] Comment on above: Order Comment: Speci men Type: BLOOD SPECIMENOrdering Facility: [facility] Address: [address] [place] [address] Performed By: #### 1 9123-9, 3040-3, 62682-8 ####[facility] LABORATORYCLIA [id number] [place] [id number] [place] ALP [Catalytic activity/Vol] 58 U/L Normal 34-123 [facility] Comment on above: Order Comment: Speci men Type: BLOOD SPECIMENOrdering Facility: [facility] Address: [address] [place] [address] Performed By: #### 1 9123-9, 3040-3, 76935-5 ####[facility] LABORATORYCLIA [id number] [place] [address] [place] ALT [Catalytic activity/Vol] 13 U/L Normal 7-38 [facility] Comment on above: Order Comment: Speci men Type: BLOOD SPECIMENOrdering Facility: [facility] Address: [address] [facility] [place] [address] Performed By: #### 1 9123-9, 0-3, 37773-4 ####[facility] LABORATORYCLIA [id number] [place] [address] [place] Anion gap [Moles/Vol] 13 mmol/L Normal 9-18 [facility] Comment on above: Order Comment: Speci men Type: BLOOD SPECIMENOrdering Facility: [facility] Address: [address] [place] [address] Performed By: #### 1 9123-9, 3040-3, 67239-0 ####[facility] LABORATORYCLIA [id number] [place] [address] [place] AST [Catalytic activity/Vol] 31 U/L Normal 13-35 [facility] Comment on above: Order Comment: Speci men Type: BLOOD SPECIMENOrdering Facility: [facility] Address: [address] [place] [address] Performed By: #### 1 9123-9, 3040-3, ####[facility] LABORATORYCLIA [id number] [place] [address] [place] Bilirubin [Mass/Vol] 0.4 mg/dL Normal 0.2-1.3 [facility] Comment on above: Order Comment: Speci men Type: BLOOD SPECIMENOrdering Facility: [facility] Address: [address] [place] [address] Performed By: #### 1 9123-9, 3039-3, ####[facility] LABORATORYCLIA [id number] [place] [address] [place] Calcium [Mass/Vol] 9.0 mg/dL Normal 8.5-10.2 [facility] Comment on above: Order Comment: Speci men Type: BLOOD SPECIMENOrdering Facility: [facility] Address: [address] [place] [address] Performed By: #### 1 91239, 3, ####[facility] LABORATORYCLIA [id number] [place] [address] [place] Chloride [Moles/Vol] 103 mmol/L Normal 97-105 [facility] Comment on above: Order Comment: Speci men Type: BLOOD SPECIMENOrdering Facility: [facility] Address: [address] [place] [address] Performed By: #### 1 9123-9, 3, ####[facility] LABORATORYCLIA [id number] [place] [address] [place] CO2 [Moles/Vol] 22 mmol/L Normal 22-30 [facility] Comment on above: Order Comment: Speci men Type: BLOOD SPECIMENOrdering Facility: [facility] Address: [address] [place] [address] Performed By: #### 1 9123-9, 3039-3, 32687-8 ####[facility] LABORATORYCLIA [id number] [place] [address] [place] Creatinine [Mass/Vol] 0.83 mg/dL Normal 0.58-0.96 [facility] Comment on above: Order Comment: Geraldo marrero Type: BLOOD SPECIMENOrdering Facility: [facility] Address: [address] [place] [address] Performed By: #### 1 9123-9, 3040-3, 93517-5 ####[facility] LABORATORYCLIA [id number] [place] [address] [place] Creatinine and Glomerular filtration rate.predicted panel (S/P/Bld) 95 mL/min/1.73m??? Normal >=60 [facility] Comment on above: Order Comment: Geraldo marrero Type: BLOOD SPECIMENOrdering Facility: [facility] Address: [address] [place] [address] Result Comment: Jessica mated Glomerular Filtration Rate [...] GFR. Performed By: #### 1 9123-9, 3040-3, 59037-8 ####[facility] LABORATORYCLIA [id number] [place] [address] [place] Glucose [Mass/Vol] 77 mg/dL Normal 74-99 [facility] Comment on above: Order Comment: Geraldo marrero Type: BLOOD SPECIMENOrdering Facility: [facility] Address: [address] [place] [address] Result Comment: The [place] [employer] (ADA) provides guidance for cutoff [...] Standards of Medical Care in Diabetes 2016, [place] [employer]. Diabetes Care. 2016.39(Suppl 1). Performed By: #### 1 9123-9, 3040-3, 62180-7 ####[facility] LABORATORYCLIA [id number] [place] [address] [place] Potassium [Moles/Vol] 3.4 mmol/L Low 3.7-5.1 [facility] Comment on above: Order Comment: Speci men Type: BLOOD SPECIMENOrdering Facility: [facility] Address: [address] [place] [address] Performed By: #### 1 9123-9, 3040-3, 02541-5 ####[facility] LABORATORYCLIA [id number] [place] [address] [place] Protein [Mass/Vol] 7.6 g/dL Normal 6.3-8.0 [facility] Comment on above: Order Comment: Speci men Type: BLOOD SPECIMENOrdering Facility: [facility] Address: [address] [place] [address] Performed By: #### 1 9123-9, 0-3, 88546-6 ####[facility] LABORATORYCLIA [id number] [place] [address] [place] Sodium [Moles/Vol] 138 mmol/L Normal 136-144 [facility] Comment on above: Order Comment: Speci men Type: BLOOD SPECIMENOrdering Facility: [facility] Address: [address] [place] [address] Performed By: #### 1 9123-9, 0-3, 07976-2 ####[facility] LABORATORYCLIA [id number] [place] [address] [place] Urea nitrogen [Mass/Vol] 12 mg/dL Normal 7-21 [facility] Comment on above: Order Comment: Speci men Type: BLOOD SPECIMENOrdering Facility: [facility] Address: [address] [place] [address] Performed By: #### 1 9123-9, 3040-3, 29687-7 ####[facility] LABORATORYCLIA [id number] [place] [address] [place] ECG COMPLETEon 06-18-2023 ECG COMPLETE Normal [facility] ED NOTEon 06-18-2023 ED NOTE Normal [facility] ED NOTE HNO ID: [id number] Author: HIEU HERNANDEZ RN Service: ? Author Type: Registered Nurse Type: ED Notes Filed: 06/18/2023 19:05 Note Text: Patient verbalized understanding of discharge instructions and follow up care. Normal [facility] ED NOTE HNO ID: [id number] Author: HIEU HERNANDEZ RN Service: ? Author Type: Registered Nurse Type: ED Notes Filed: 06/18/2023 18:38 Note Text: Long catheter with leg bag inserted and orange juice given via peg tube given per Earnest INMAN verbal order. Normal [facility] ED PROV NOTEon 06-18-2023 ED PROV NOTE Normal [facility] HCG QUALITATIVEon 06-18-2023 HCG, QUALITATIVE Negative Normal Negative [facility] Comment on above: Order Comment: Speci men Type: BLOOD SPECIMENOrdering Facility: [facility] Address: [address] [place] [address] Performed By: #### H CG ####[facility] LABORATORYCLIA [id number] [place] [address] [place] Lipase SerPl-cCncon 06-18-19 Lipase [Catalytic activity/Vol] 31 U/L Normal 16-61 [facility] Comment on above: Order Comment: Speci men Type: BLOOD SPECIMENOrdering Facility: [facility] Address: [address] [place] [address] Performed By: #### 1 9123-9, 3040-3, 80309-0 ####[facility] LABORATORYCLIA [id number] [place] [address] [place] Magnesium SerPl-mCncon 06-17 Magnesium [Mass/Vol] 2.0 mg/dL Normal 1.7-2.3 [facility] Comment on above: Order Comment: Speci men Type: BLOOD SPECIMENOrdering Facility: [facility] Address: [address] [place] [address] Performed By: #### 1 9123-9, 3040-3, 25935-1 ####[facility] LABORATORYCLIA [id number] [place] [address] [place] [facility] Urinalysis complete panel (U )on 06-18-2023 Bacteria LM.HPF (Urine sed) [#/Area] Rare Abnormal None Seen [facility] Comment on above: Order Comment: Speci men Type: URINE SPECIMENOrdering Facility: [facility] Address: [address] [place] [address] Performed By: #### 2 4356-8 ####[facility] LABORATORYCLIA [id number] [place] [address] [place] Bilirubin Ql (U) Negative Normal Negative [facility] Comment on above: Order Comment: Speci men Type: URINE SPECIMENOrdering Facility: [facility] Address: [address] [place] [address] Performed By: #### 2 4356-8 ####[facility] LABORATORYCLIA [id number] [place] [address] [place] Clarity (Unsp spec) Clear Normal Clear [facility] Comment on above: Order Comment: Speci men Type: URINE SPECIMENOrdering Facility: [facility] Address: [address] [place] [address] Performed By: #### 2 4356-8 ####[facility] LABORATORYCLIA [id number] [address] [place] Color (U) Light Yellow Normal Yellow [facility] Comment on above: Order Comment: Speci men Type: URINE SPECIMENOrdering Facility: [facility] Address: [address] [place] [address] Performed By: #### 2 4356-8 ####[facility] LABORATORYCLIA [id number] [place] [address] [facility] [place] Epithelial cells LM.HPF (Urine sed) [#/Area] Few Normal [facility] Comment on above: Order Comment: Speci men Type: URINE SPECIMENOrdering Facility: [facility] Address: [address] [place] [address] Performed By: #### 2 4356-8 ####[facility] LABORATORYCLIA [id number] [place] [address] [place] Glucose Test strip (U) [Mass/Vol] Negative Normal Trace, Negative [facility] Comment on above: Order Comment: Speci men Type: URINE SPECIMENOrdering Facility: [facility] Address: [address] [place] [address] Performed By: #### 2 4356-8 ####[facility] LABORATORYCLIA [id number] [place] [address] [place] Hemoglobin Ql (U) Negative Normal Negative, Trace [facility] Comment on above: Order Comment: Speci men Type: URINE SPECIMENOrdering Facility: [facility] Address: [address] [place] [address] Performed By: #### 2 4356-8 ####[facility] LABORATORYCLIA [id number] [place] [address] [place] Ketones Ql (U) Negative Normal Negative, Trace [facility] Comment on above: Order Comment: Speci men Type: URINE SPECIMENOrdering Facility: [facility] Address: [address] [place] [address] Performed By: #### 2 4356-8 ####[facility] LABORATORYCLIA [id number] [address] [place] Leukocyte esterase Test strip Ql (U) Negative Normal Negative, 25 Patito/uL [facility] Comment on above: Order Comment: Speci men Type: URINE SPECIMENOrdering Facility: [facility] Address: [address] [place] [address] Performed By: #### 2 4356-8 ####[facility] LABORATORYCLIA [id number] [address] [place] Nitrite Ql (U) Negative Normal Negative [facility] Comment on above: Order Comment: Speci men Type: URINE SPECIMENOrdering Facility: [facility] Address: [address] [place] [address] Performed By: #### 2 4356-8 ####[facility] LABORATORYCLIA [id number] [place] [address] [place] pH (U) 7.5 [pH] Normal 5.0-8.0 [facility] Comment on above: Order Comment: Speci men Type: URINE SPECIMENOrdering Facility: [facility] Address: [address] [place] [address] Performed By: #### 2 4356-8 ####[facility] LABORATORYCLIA [id number] [place] [address] [place] Protein (U) [Mass/Vol] Negative Normal Trace, Negative [facility] Comment on above: Order Comment: Speci men Type: URINE SPECIMENOrdering Facility: [facility] Address: [address] [place] [address] Performed By: #### 2 4356-8 ####[facility] LABORATORYCLIA [id number] [place] [address] [place] RBC LM.HPF (Urine sed) [#/Area] 0-3 /HPF Normal 0-3 /HPF [facility] Comment on above: Order Comment: Speci men Type: URINE SPECIMENOrdering Facility: [facility] Address: [address] [place] [address] Performed By: #### 2 4356-8 ####[facility] LABORATORYIA [id number] [address] [place] Specific gravity (U) [Rel density] 1.009 Normal 1.005-1.030 [facility] Comment on above: Order Comment: Speci men Type: URINE SPECIMENOrdering Facility: [facility] Address: [address] [place] [address] Performed By: #### 2 4356-8 ####[facility] LABORATORYCLIA [id number] [place] [id number] [place] Urobilinogen Ql (U) Normal Normal Normal [facility] Comment on above: Order Comment: Speci men Type: URINE SPECIMENOrdering Facility: [facility] Address: [address] [place] [address] Performed By: #### 2 4356-8 ####[facility] LABORATORYCLIA [id number] [place] [address] [place] WBC LM.HPF (Urine sed) [#/Area] 0-5 /HPF Normal 0-5 /HPF [facility] Comment on above: Order Comment: Speci men Type: URINE SPECIMENOrdering Facility: [facility] Address: [address] [place] [address] Performed By: #### 2 4356-8 ####[facility] LABORATORYCLIA [id number] [place] [address] [place] CNPNon 06-17-2023 CNPN Normal [facility] Home Health Recordson 2023 Home Health Records [id number] B4#1.00TIFF Normal [facility] Physician Referralon 024 Physician Referral [id number] 101#1.00TIFF Normal [facility] Provider Letteron 06-16-2023 Provider Letter Normal [facility] CNPNon 06-15-2023 CNPN Normal [facility] ED Note-Physicianon 06-15-19 24 ED Note-Physician [id number] D0#1.00TIFF Normal [facility] Outside Hospital Correspo ndenceon 06-15-2023 Outside [facility] Correspondence [id number] A2#1.00TIFF Normal [facility] Physician Referralon 024 Physician Referral [id number] 38#1.00TIFF Normal [facility] RAD - CT Reporton 06-15-2023 RAD - CT Report [id number] F9#1.00TIFF Normal [facility] Transfer Inon 06-15-2023 Transfer In [id number] 80#1.00TIFF Normal [facility] Ambulatory Visit Summaryon 0 06-14-2023 Ambulatory Visit Summary Normal [address] [place] [address]- \.br\ Medications\.br\ What How Much When Why [...] for choosing us for your care.\.br\ \.br\ [facility] Auth for Release of Medical Recordson 06-14-2023 Auth for Release of Medical Records [id number] E3#1.00TIFF Normal [facility] CNPNon 06-14-2023 CNPN Normal [facility] Family Medicine Office/Clini c Noteon 06-14-2023 Family Medicine Office/Clinic Note Normal [facility] Comment on above: Result Comment: Elec tronically Signed By: Jaquan Paula\.br\Date and Time Signed: 06/14/23 13:22 EDT Home Health Recordson 2023 Home Health Records [id number] E4#1.00TIFF Normal [facility] Population Healthon 06-11-19 Population Health Normal [facility] Home Health Recordson 2023 Home Health Records [id number] 22#1.00TIFF Normal [facility] Retail - Clinical Noteon Retail - Clinical Note [id number] F2#1.00TIFF Normal [facility] ALLIED HEALTHon 06-09-2023 ALLIED HEALTH Normal [facility] Basic metabolic 2000 panelon 06-09-2023 Anion gap [Moles/Vol] 7 mmol/L Low 9-18 [facility] Comment on above: Order Comment: Speci men Type: BLOOD SPECIMENOrdering Facility: [facility] Address: [address] [place] [address] Performed By: #### 2 4321-2 ####[facility] LABORATORYCLIA [id number] [place] [address] [place] Calcium [Mass/Vol] 8.6 mg/dL Normal 8.5-10.2 [facility] Comment on above: Order Comment: Speci men Type: BLOOD SPECIMENOrdering Facility: [facility] Address: [address] [place] [address] Performed By: #### 2 4321-2 ####[facility] LABORATORYCLIA [id number] [place] [address] [place] Chloride [Moles/Vol] 107 mmol/L High 97-105 [facility] Comment on above: Order Comment: Speci men Type: BLOOD SPECIMENOrdering Facility: [facility] Address: [address] [place] [address] Performed By: #### 2 4321-2 ####[facility] LABORATORYCLIA [id number] [place] [address] [place] CO2 [Moles/Vol] 24 mmol/L Normal 22-30 [facility] Comment on above: Order Comment: Speci men Type: BLOOD SPECIMENOrdering Facility: [facility] Address: [address] [place] [address] Performed By: #### 2 4321-2 ####[facility]'S HOSPITALIA [id number] [place] [address] [place] Creatinine [Mass/Vol] 0.68 mg/dL Normal 0.58-0.96 [facility] Comment on above: Order Comment: Geraldo [facility] Type: BLOOD SPECIMENOrdering Facility: [facility] Address: [address] [place] [address] Performed By: #### 2 4321-2 ####[facility] HOSPITALIA [id number] [place] [id number] [place] Creatinine and Glomerular filtration rate.predicted panel (S/P/Bld) 117 mL/min/1.73m??? Normal >=60 [facility] Comment on above: Order Comment: Geraldo [facility] Type: BLOOD SPECIMENOrdering Facility: [facility] Address: [address] [place] [address] Result Comment: Jessica mated Glomerular Filtration Rate [...] actual GFR. Performed By: #### 2 4321-2 ####[facility] HOSPITALIA [id number] [place] [id number] [place] Glucose [Mass/Vol] 89 mg/dL Normal 74-99 [facility] Comment on above: Order Comment: Geraldo [facility] Type: BLOOD SPECIMENOrdering Facility: [facility] Address: [address] [place] [address] Result Comment: The [place] Diabetes [employer] (ADA) provides guidance for cutoff [...] Standards of Medical Care in Diabetes 2016, [place] [employer]. Diabetes Care. 2016.39(Suppl 1). Performed By: #### 2 4321-2 ####[facility] [id number] [place] [address] [place] Potassium [Moles/Vol] 4.1 mmol/L Normal 3.7-5.1 [facility] Comment on above: Order Comment: Lyssai elida Type: BLOOD SPECIMENOrdering Facility: [facility] Address: [address] [place] [address] Performed By: #### 2 4321-2 ####[facility] [id number] [place] [id number] [place] Sodium [Moles/Vol] 138 mmol/L Normal 136-144 [facility] Comment on above: Order Comment: Geraldo marrero Type: BLOOD SPECIMENOrdering Facility: [facility] Address: [address] [place] [address] Performed By: #### 2 4321-2 ####[facility] [id number] [place] [address] [place] Urea nitrogen [Mass/Vol] 10 mg/dL Normal 7-21 [facility] Comment on above: Order Comment: Lyssai men Type: BLOOD SPECIMENOrdering Facility: [facility] Address: [address] [place] [address] Performed By: #### 2 4321-2 ####[facility] [id number] [place] [address] [place] CASE MANAGEMon 06-09-2023 CASE MANAGEM Normal [facility] CNDSon 06-09-2023 CNDS [facility] CONSULT PROGon 06-08-2023 CONSULT PROG Normal [facility] TOXICOLOGY SCREEN, ROUTINE U RINEon 06-08-2023 Amphetamines Confirm (U) [Mass/Vol] Negative Normal Negative [facility] Comment on above: Order Comment: Speci men Type: URINE SPECIMENOrdering Facility: [facility] Address: [address] [place] [address] Result Comment: Cuto ff threshold at 1000 ng/mL. Performed By: #### U TOX2 ####[facility] LABORATORYCLIA [id number] [place] [address] [place] BARBITURATES, URINE Negative Normal Negative [facility] Comment on above: Order Comment: Speci men Type: URINE SPECIMENOrdering Facility: [facility] Address: [address] [place] [address] Result Comment: Cuto ff threshold at 200 ng/mL. Performed By: #### U TOX2 ####[facility] LABORATORYIA [id number] [place] [address] [place] BENZODIAZEPINES, UR Negative Normal Negative [facility] Comment on above: Order Comment: Speci men Type: URINE SPECIMENOrdering Facility: [facility] Address: [address] [place] [address] Result Comment: Cuto ff threshold at 200 ng/mL. Performed By: #### U TOX2 ####[facility] LABORATORYIA [id number] [place] [address] [place] Cannabinoids Screen Ql (U) Negative Normal Negative [facility] Comment on above: Order Comment: Speci men Type: URINE SPECIMENOrdering Facility: [facility] Address: [address] [place] [address] Result Comment: Cuto ff threshold at 50 ng/mL. Performed By: #### U TOX2 ####[facility] LABORATORYIA [id number] [place] [address] [place] Cocaine Ql (U) Negative Normal Negative [facility] Comment on above: Order Comment: Speci men Type: URINE SPECIMENOrdering Facility: [facility] Address: [address], [place] [address] Result Comment: Cuto ff threshold at 300 ng/mL. Performed By: #### U TOX2 ####[facility] LABORATORYIA [id number] [place] [address] [place] Ethanol (U) [Mass/Vol] <11 Normal <11 [facility] Comment on above: Order Comment: Speci men Type: URINE SPECIMENOrdering Facility: [facility] [facility] Address: [address] [place] [address] Performed By: #### U TOX2 ####[facility]ORY[facility] [id number] [place] [address] [place] Opiates Screen Ql (U) Negative Normal Negative [facility] Comment on above: Order Comment: Speci men Type: URINE SPECIMENOrdering Facility: [facility] Address: [address] [place] [address] Result Comment: Cuto ff threshold at 300 ng/mL. Performed By: #### U TOX2 ####[facility] [id number] [address] [place] oxyCODONE cutoff Screen (U) [Mass/Vol] Negative Normal Negative [facility] Comment on above: Order Comment: Speci men Type: URINE SPECIMENOrdering Facility: [facility] Address: [address] [place] [address] Result Comment: Cuto ff threshold at 100 ng/mL. Performed By: #### U TOX2 ####[facility] [id number] [place] [id number] [place] Phencyclidine Ql (U) Negative Normal Negative [facility] Comment on above: Order Comment: Speci men Type: URINE SPECIMENOrdering Facility: [facility] Address: [address] [place] [address] Result Comment: Cuto ff threshold at 25 ng/mL. Performed By: #### U TOX2 ####[facility] [id number] [place] [address] [place] Basic metabolic 2000 panelon 06-07-2023 Anion gap [Moles/Vol] 9 mmol/L Normal 9-18 [facility] Comment on above: Order Comment: Speci men Type: BLOOD SPECIMENOrdering Facility: [facility] Address: [address] [place] [address] Performed By: #### 2 4321-2 ####[facility] [id number] [place] [address] [place] Calcium [Mass/Vol] 8.7 mg/dL Normal 8.5-10.2 [facility] Comment on above: Order Comment: Speci men Type: BLOOD SPECIMENOrdering Facility: [facility] Address: [address] [place] [address] Performed By: #### 2 4321-2 ####[facility] [id number] [place] [address] [place] Chloride [Moles/Vol] 108 mmol/L High 97-105 [facility] Comment on above: Order Comment: Speci men Type: BLOOD SPECIMENOrdering Facility: [facility] Address: [address] [place] [address] Performed By: #### 2 4321-2 ####[facility] [id number] [place] [address] [place] CO2 [Moles/Vol] 23 mmol/L Normal 22-30 [facility] Comment on above: Order Comment: Speci men Type: BLOOD SPECIMENOrdering Facility: [facility] Address: [address] [place] [address] Performed By: #### 2 4321-2 ####[facility] [id number] [place] [address] [place] Creatinine [Mass/Vol] 0.68 mg/dL Normal 0.58-0.96 [facility] Comment on above: Order Comment: Speci men Type: BLOOD SPECIMENOrdering Facility: [facility] Address: [address] [place] [address] Performed By: #### 2 4321-2 ####[facility] [id number] [place] [address] [place] Creatinine and Glomerular filtration rate.predicted panel (S/P/Bld) 117 mL/min/1.73m??? Normal >=60 [facility] Comment on above: Order Comment: Geraldo marrero Type: BLOOD SPECIMENOrdering Facility: [facility] Address: [address] [place] [address] Result Comment: Jessica mated Glomerular Filtration Rate [...] actual GFR. Performed By: #### 2 4321-2 ####[facility]ORYCLIA [id number] [facility] [address] [place] Glucose [Mass/Vol] 98 mg/dL Normal 74-99 [facility] Comment on above: Order Comment: Geraldo marrero Type: BLOOD SPECIMENOrdering Facility: [facility] Address: [address] [place] [address] Result Comment: The [place] Diabetes Association (ADA) provides guidance for cutoff [...] Standards of Medical Care in Diabetes 2016, [place] [employer]. Diabetes Care. 2016.39(Suppl 1). Performed By: #### 2 4321-2 ####[facility]ATORYCLIA [id number] [place] [address] [place] Potassium [Moles/Vol] 4.2 mmol/L Normal 3.7-5.1 [facility] Comment on above: Order Comment: Speci men Type: BLOOD SPECIMENOrdering Facility: [facility] Address: [address] [place] [address] Performed By: #### 2 4321-2 ####[facility] [id number] [place] [address] [place] Sodium [Moles/Vol] 140 mmol/L Normal 136-144 [facility] Comment on above: Order Comment: Speci men Type: BLOOD SPECIMENOrdering Facility: [facility] Address: [address] [place] [address] Performed By: #### 2 4321-2 ####[facility] [id number] [place] [address] [place] Urea nitrogen [Mass/Vol] 9 mg/dL Normal 7-21 [facility] Comment on above: Order Comment: Speci men Type: BLOOD SPECIMENOrdering Facility: [facility] Address: [address] [place] [address] Performed By: #### 2 4321-2 ####[facility] [id number] [place] [address] [place] CASE MGT INIT [facility] 2023 CASE MGT INIT [facility] CBC panel Auto (Bld)on 06-06 Erythrocyte distribution width (RBC) [Ratio] 13.7 % Normal 11.5-15.0 [facility] Comment on above: Order Comment: Speci men Type: BLOOD SPECIMENOrdering Facility: [facility] Address: [address] [place] [address] Performed By: #### 5 8410-2 ####[facility] [id number] [place] [address] [place] Hematocrit (Bld) [Volume fraction] 32.6 % Low 36.0-46.0 [facility] Comment on above: Order Comment: Speci men Type: BLOOD SPECIMENOrdering Facility: [facility] Address: [address] [place] [address] Performed By: #### 5 8410-2 ####[facility] [id number] [place] [address] [place] Hemoglobin (Bld) [Mass/Vol] 10.8 g/dL Low 11.5-15.5 [facility] Comment on above: Order Comment: Speci men Type: BLOOD SPECIMENOrdering Facility: [facility] Address: [address] [place] [address] Performed By: #### 5 8410-2 ####[facility] [id number] [address] [place] MCH (RBC) [Entitic mass] 29.9 pg Normal 26.0-34.0 [facility] Comment on above: Order Comment: Speci men Type: BLOOD SPECIMENOrdering Facility: [facility] Address: [address] [place] [address] Performed By: #### 5 8410-2 ####[facility] [id number] [address] [place] MCHC (RBC) [Mass/Vol] 33.1 g/dL Normal 30.5-36.0 [facility] Comment on above: Order Comment: Speci men Type: BLOOD SPECIMENOrdering Facility: [facility] Address: [address] [place] [address] Performed By: #### 5 8410-2 ####[facility] [id number] [address] [place] MCV (RBC) [Entitic vol] 90.3 fL Normal 80.0-100.0 [facility] Comment on above: Order Comment: Speci men Type: BLOOD SPECIMENOrdering Facility: [facility] Address: [address] [place] [address] Performed By: #### 5 8410-2 ####[facility] [id number] [address] [place] Nucleated RBC (Bld) [#/Vol] 10*3/uL Normal <0.01 [facility] Comment on above: Order Comment: Speci men Type: BLOOD SPECIMENOrdering Facility: [facility] Address: [address] [place] [address] Performed By: #### 5 8410-2 ####[facility] [id number] [place] [address] [place] Platelet mean volume (Bld) [Entitic vol] 10.5 fL Normal 9.0-12.7 [facility] Comment on above: Order Comment: Speci men Type: BLOOD SPECIMENOrdering Facility: [facility] Address: [address] [place] [address] Performed By: #### 5 8410-2 ####[facility] [id number] [place] [address] [place] Platelets (Bld) [#/Vol] 258 10*3/uL Normal 150-400 [facility] Comment on above: Order Comment: Speci men Type: BLOOD SPECIMENOrdering Facility: [facility] Address: [address] [place] [address] Performed By: #### 5 8410-2 ####[facility] [id number] [place] [address] [place] RBC (Bld) [#/Vol] 3.61 10*6/uL Low 3.90-5.20 [facility] Comment on above: Order Comment: Speci men Type: BLOOD SPECIMENOrdering Facility: [facility] Address: [address] [place] [address] Performed By: #### 5 8410-2 ####[facility] [id number] [place] [address] [place] WBC (Bld) [#/Vol] 3.65 10*3/uL Low 3.70-11.00 [facility] Comment on above: Order Comment: Speci men Type: BLOOD SPECIMENOrdering Facility: [facility] Address: [address] [place] [address] Performed By: #### 5 8410-2 ####[facility] [id number] [facility] [place] [address] [place] CONSULTon 06-07-2023 CONSULT Normal [facility] CONSULT Normal [facility] NUTRITIONon 06-07-2023 NUTRITION Normal [facility] CBC W Auto Differential pane l (Bld)on 06-06-2023 Basophils (Bld) [#/Vol] 0.05 10*3/uL Normal <0.11 [facility] Comment on above: Order Comment: Speci men Type: BLOOD SPECIMENOrdering Facility: [facility] Address: [address] [place] [address] Performed By: #### 5 7021-8 ####[facility]ORYCLIA [id number] [place] [address] [place] Basophils/100 WBC (Bld) 1.0 % Normal [facility] Comment on above: Order Comment: Speci men Type: BLOOD SPECIMENOrdering Facility: [facility] Address: [address] [place] [address] Performed By: #### 5 7021-8 ####[facility]ORYCLIA [id number] [place] [address] [place] Differential cell count method Nom (Bld) Auto Normal [facility] Comment on above: Order Comment: Speci men Type: BLOOD SPECIMENOrdering Facility: [facility] Address: [address] [place] [address] Performed By: #### 5 7021-8 ####[facility]ORYCLIA [id number] [facility] [address] [place] Eosinophils (Bld) [#/Vol] 0.11 10*3/uL Normal <0.46 [facility] Comment on above: Order Comment: Speci men Type: BLOOD SPECIMENOrdering Facility: [facility] Address: [address] [place] [address] Performed By: #### 5 7021-8 ####[facility]ORYCLIA [id number] [facility] [address] [place] Eosinophils/100 WBC (Bld) 2.2 % Normal [facility] Comment on above: Order Comment: Speci men Type: BLOOD SPECIMENOrdering Facility: [facility] Address: [address] [place] [address] Performed By: #### 5 7021-8 ####[facility] [id number] [place] [address] [place] Erythrocyte distribution width (RBC) [Ratio] 13.4 % Normal 11.5-15.0 [facility] Comment on above: Order Comment: Speci men Type: BLOOD SPECIMENOrdering Facility: [facility] Address: [address] [place] [address] Performed By: #### 5 7021-8 ####[facility] [id number] [place] [address] [place] Hematocrit (Bld) [Volume fraction] 35.9 % Low 36.0-46.0 [facility] Comment on above: Order Comment: Speci men Type: BLOOD SPECIMENOrdering Facility: [facility] Address: [address] [place] [address] Performed By: #### 5 7021-8 ####[facility] [id number] [place] [address] [place] Hemoglobin (Bld) [Mass/Vol] 12.2 g/dL Normal 11.5-15.5 [facility] Comment on above: Order Comment: Speci men Type: BLOOD SPECIMENOrdering Facility: [facility] Address: [address] [place] [address] Performed By: #### 5 7021-8 ####[facility] [id number] [place] [address] [place] Immature granulocytes (Bld) [#/Vol] 10*3/uL Normal <0.10 [facility] Comment on above: Order Comment: Speci men Type: BLOOD SPECIMENOrdering Facility: [facility] Address: [address] [place] [address] Performed By: #### 5 7021-8 ####[facility] [id number] [place] [address] [place] Immature granulocytes/100 WBC (Bld) 0.2 % Normal [facility] Comment on above: Order Comment: Speci men Type: BLOOD SPECIMENOrdering Facility: [facility] Address: [address] [place] [address] Performed By: #### 5 7021-8 ####[facility]ORYCLIA [id number] [place] [address] [place] Lymphocytes (Bld) [#/Vol] 1.70 10*3/uL Normal 1.00-4.00 [facility] Comment on above: Order Comment: Speci men Type: BLOOD SPECIMENOrdering Facility: [facility] Address: [address] [place] [address] Performed By: #### 5 7021-8 ####[facility] [id number] [address] [place] Lymphocytes/100 WBC (Bld) 33.3 % Normal [facility] Comment on above: Order Comment: Speci men Type: BLOOD SPECIMENOrdering Facility: [facility] Address: [address] [place] [address] Performed By: #### 5 7021-8 ####[facility] [id number] [place] [address] [place] MCH (RBC) [Entitic mass] 30.1 pg Normal 26.0-34.0 [facility] Comment on above: Order Comment: Speci men Type: BLOOD SPECIMENOrdering Facility: [facility] Address: [address] [place] [address] Performed By: #### 5 7021-8 ####[facility] [id number] [place] [address] [place] MCHC (RBC) [Mass/Vol] 34.0 g/dL Normal 30.5-36.0 [facility] Comment on above: Order Comment: Speci men Type: BLOOD SPECIMENOrdering Facility: [facility] Address: [address] [place] [address] Performed By: #### 5 7021-8 ####[facility] [id number] [place] [address] [place] MCV (RBC) [Entitic vol] 88.6 fL Normal 80.0-100.0 [facility] Comment on above: Order Comment: Speci men Type: BLOOD SPECIMENOrdering Facility: [facility] Address: [address] [place] [address] Performed By: #### 5 7021-8 ####[facility] [id number] [place] [address] [place] Monocytes (Bld) [#/Vol] 0.42 10*3/uL Normal <0.87 [facility] Comment on above: Order Comment: Speci men Type: BLOOD SPECIMENOrdering Facility: [facility] Address: [address] [place] [address] Performed By: #### 5 7021-8 ####[facility] [id number] [place] [address] [place] Monocytes/100 WBC (Bld) 8.2 % Normal [facility] Comment on above: Order Comment: Speci men Type: BLOOD SPECIMENOrdering Facility: [facility] Address: [address] [place] [address] Performed By: #### 5 7021-8 ####[facility] [id number] [place] [address] [place] Neutrophils (Bld) [#/Vol] 2.81 10*3/uL Normal 1.45-7.50 [facility] Comment on above: Order Comment: Speci men Type: BLOOD SPECIMENOrdering Facility: [facility] Address: [address] [place] [address] Performed By: #### 5 7021-8 ####[facility] [id number] [place] [address] [place] Neutrophils/100 WBC (Bld) 55.1 % Normal [facility] Comment on above: Order Comment: Speci men Type: BLOOD SPECIMENOrdering Facility: [facility] Address: [address] [place] [address] Performed By: #### 5 7021-8 ####[facility] [id number] [place] [address] [place] Nucleated RBC (Bld) [#/Vol] 10*3/uL Normal <0.01 [facility] Comment on above: Order Comment: Speci men Type: BLOOD SPECIMENOrdering Facility: [facility] Address: [address] [place] [address] Performed By: #### 5 7021-8 ####[facility] [id number] [place] [address] [place] Nucleated RBC/100 WBC (Bld) [Ratio] 0.0 /100 WBC Normal [facility] Comment on above: Order Comment: Speci men Type: BLOOD SPECIMENOrdering Facility: [facility] Address: [address] [place] [address] Performed By: #### 5 7021-8 ####[facility] [id number] [place] [address] [place] Platelet mean volume (Bld) [Entitic vol] 10.3 fL Normal 9.0-12.7 [facility] Comment on above: Order Comment: Speci men Type: BLOOD SPECIMENOrdering Facility: [facility] Address: [address] [place] [address] Performed By: #### 5 7021-8 ####[facility] [id number] [place] [address] [place] Platelets (Bld) [#/Vol] 323 10*3/uL Normal 150-400 [facility] Comment on above: Order Comment: Speci men Type: BLOOD SPECIMENOrdering Facility: [facility] Address: [address] [place] [address] Performed By: #### 5 7021-8 ####[facility] [id number] [place] [address] [place] RBC (Bld) [#/Vol] 4.05 10*6/uL Normal 3.90-5.20 [facility] Comment on above: Order Comment: Speci men Type: BLOOD SPECIMENOrdering Facility: [facility] Address: [facility] [place] [address] Performed By: #### 5 7021-8 ####[facility]ATORYCLIA [id number] [facility] [place] [address] [place] WBC (Bld) [#/Vol] 5.10 10*3/uL Normal 3.70-11.00 [facility] Comment on above: Order Comment: Speci men Type: BLOOD SPECIMENOrdering Facility: [facility] Address: [address] [place], [place] [address] [address] Performed By: #### 5 7021-8 ####[facility]ORATORYCLIA [id number] [facility] [address] [place] ABD/PEL W IVCONon 024 CT ABD/PEL W IVCON Normal [facility] Comprehensive metabolic 2000 panelon 06-06-2023 Albumin [Mass/Vol] 4.3 g/dL Normal 3.9-4.9 [facility] Comment on above: Order Comment: Speci men Type: BLOOD SPECIMENOrdering Facility: [facility] Address: [address] [place], [place] [address] [address] Performed By: #### 2 4323-8, 0-3, ####[facility]ORYCLIA [id number] [facility] [place] [address] [place] ALP [Catalytic activity/Vol] 62 U/L Normal 34-123 [facility] Comment on above: Order Comment: Speci men Type: BLOOD SPECIMENOrdering Facility: [facility] Address: [address] [place], [place] [address] [address] Performed By: #### 2 4323-8, 3040-3, ####[facility]ATORYCLIA [id number] [facility] [address] [place] ALT [Catalytic activity/Vol] 16 U/L Normal 7-38 [facility] Comment on above: Order Comment: Speci men Type: BLOOD SPECIMENOrdering Facility: [facility] Address: [address] [place] [address] Performed By: #### 2 4323-8, 0-3, ####[facility]ORYCLIA [id number] [place] [address] [place] Anion gap [Moles/Vol] 10 mmol/L Normal 9-18 [facility] Comment on above: Order Comment: Speci men Type: BLOOD SPECIMENOrdering Facility: [facility] Address: [address] [place] [address] Performed By: #### 2 4323-8, 3, ####[facility] H[facility]ITALIA [id number] [place] [address] [place] AST [Catalytic activity/Vol] 28 U/L Normal 13-35 [facility] Comment on above: Order Comment: Speci men Type: BLOOD SPECIMENOrdering Facility: [facility] Address: [address] [place], [place] [address] Performed By: #### 2 4323-8, 3, ####[facility] H[facility]ITALIA [id number] [place] [address] [place] Bilirubin [Mass/Vol] 0.3 mg/dL Normal 0.2-1.3 [facility] Comment on above: Order Comment: Speci men Type: BLOOD SPECIMENOrdering Facility: [facility] Address: [address] [place] [address] Performed By: #### 2 4323-8, 3039-3, ####[facility]ORYIA [id number] [place] [address] [place] Calcium [Mass/Vol] 9.1 mg/dL Normal 8.5-10.2 [facility] Comment on above: Order Comment: Speci men Type: BLOOD SPECIMENOrdering Facility: [facility] Address: [address] [place] [address] Performed By: #### 2 4323-8, 3040-3, ####[facility]ATORYCLIA [id number] [facility] [address] [place] Chloride [Moles/Vol] 103 mmol/L Normal 97-105 [facility] Comment on above: Order Comment: Speci men Type: BLOOD SPECIMENOrdering Facility: [facility] Address: [address] [place] [address] Performed By: #### 2 4323-8, 0-3, ####[facility]ATORYCLIA [id number] [place] [address] [place] CO2 [Moles/Vol] 23 mmol/L Normal 22-30 [facility] Comment on above: Order Comment: Speci men Type: BLOOD SPECIMENOrdering Facility: [facility] Address: [address] [place] [address] Performed By: #### 2 4323-8, 0-3, ####[facility] H[facility]ITALIA [id number] [facility] [address] [place] Creatinine [Mass/Vol] 0.74 mg/dL Normal 0.58-0.96 [facility] Comment on above: Order Comment: Speci men Type: BLOOD SPECIMENOrdering Facility: [facility] Address: [address] [place] [address] Performed By: #### 2 4323-8, 03, ####[facility]ORYIA [id number] [place] [address] [place] Creatinine and Glomerular filtration rate.predicted panel (S/P/Bld) 109 mL/min/1.73m??? Normal >=60 [facility] Comment on above: Order Comment: Speci men Type: BLOOD SPECIMENOrdering Facility: [facility] Address: [address] [place] [address] Result Comment: Jessica mated Glomerular Filtration Rate [...] GFR. Performed By: #### 2 4323-8, 0-3, ####[facility] LABORATORYCLIA [id number] [place] [address] [place] Glucose [Mass/Vol] 91 mg/dL Normal 74-99 [facility] Comment on above: Order Comment: Speci men Type: BLOOD SPECIMENOrdering Facility: [facility] Address: [address] [place] [address] Result Comment: The [place] Diabetes Association (ADA) provides guidance for cutoff [...] Standards of Medical Care in Diabetes 2016, [place] [employer] Association. Diabetes Care. 2016.39(Suppl 1). Performed By: #### 2 4323-8, 0-3, ####[facility]ORATORYCLIA [id number] [place] [address] [place] Potassium [Moles/Vol] 4.0 mmol/L Normal 3.7-5.1 [facility] Comment on above: Order Comment: Speci men Type: BLOOD SPECIMENOrdering Facility: [facility] Address: [address] [place] [address] Performed By: #### 2 4323-8, 0-3, ####[facility]ORATORYCLIA [id number] [place] [address] [place] Protein [Mass/Vol] 7.4 g/dL Normal 6.3-8.0 [facility] Comment on above: Order Comment: Speci men Type: BLOOD SPECIMENOrdering Facility: [facility] Address: [facility] [place] [id number] Performed By: #### 2 4323-8, 3040-3, ####[facility]ORATORYCLIA [id number] [facility] [address] [place] Sodium [Moles/Vol] 136 mmol/L Normal 136-144 [facility] Comment on above: Order Comment: Speci men Type: BLOOD SPECIMENOrdering Facility: [facility] Address: [address] [place] [address] Performed By: #### 2 4323-8, 0-3, ####[facility] HOSPITALIA [id number] [place], [place] [address] [place] [address] STATES OF [facility] Urea nitrogen [Mass/Vol] 14 mg/dL Normal 7- [facility] Comment on above: Order Comment: Speci men Type: BLOOD SPECIMENOrdering Facility: [facility] Address: [address] [place], [place] [address] Performed By: #### 2 4323-8, 3039-3, ####[facility] HOSPITALIA [id number] [place] [address] [place] ECG COMPLETEon 06-06-2023 ECG COMPLETE Normal [facility] ED NOTEon 06-06-2023 ED NOTE Normal [facility] ED NOTE Normal [facility] ED PROV NOTEon 06-06-2023 ED PROV NOTE Normal [facility] l FLUABV+SARS-CoV-2+RSV Pnl Re sp HANK+probeon 06-06-2023 FLUABV+SARS-CoV-2+R SV Pnl Resp HANK+probe Normal [facility] Comment on above: Performed By: #### 9 5941-1 ####[facility]ORATORYCLIA [id number] [place] [address] [place] HISTORY PHYSICALon HISTORY PHYSICAL Normal [facility] Lipase SerPl-cCncon 06-06-19 Lipase [Catalytic activity/Vol] 75 U/L High 16-61 [facility] Comment on above: Order Comment: Speci men Type: BLOOD SPECIMENOrdering Facility: [facility] Address: [address] [place] [address] Performed By: #### 2 4323-8, 3040-3, 96998-2 ####[facility] HOSPITALIA [id number] [place] [address] [place] Magnesium SerPl-mCncon 06-05 Magnesium [Mass/Vol] 2.1 mg/dL Normal 1.7-2.3 [facility] Comment on above: Order Comment: Speci men Type: BLOOD SPECIMENOrdering Facility: [facility] Address: [address] [place] [address] Performed By: #### 2 4323-8, 3040-3, 59795-9 ####[facility] HOSPITALIA [id number] [place] [address] [place] Urinalysis complete panel (U )on 06-06-2023 Bilirubin Ql (U) Negative Normal Negative [facility] Comment on above: Order Comment: Speci men Type: URINE SPECIMENOrdering Facility: [facility] Address: [address] [place] [address] Performed By: #### 2 4356-8 ####[facility] [id number] [place] [address] [place] Clarity (Unsp spec) Clear Normal Clear [facility] Comment on above: Order Comment: Speci men Type: URINE SPECIMENOrdering Facility: [facility] Address: [address] [place] [address] Performed By: #### 2 4356-8 ####[facility] [id number] [place] [address] [place] Color (U) Light Yellow Normal yellow [facility] Comment on above: Order Comment: Speci men Type: URINE SPECIMENOrdering Facility: [facility] Address: [address] [place] [address] Performed By: #### 2 4356-8 ####[facility] HOSPITALIA [id number] [place] [address] [place] Epithelial cells LM.HPF (Urine sed) [#/Area] Few Normal [facility] Comment on above: Order Comment: Speci men Type: URINE SPECIMENOrdering Facility: [facility] Address: [address] [place] [address] Performed By: #### 2 4356-8 ####[facility] HOSPITALIA [id number] [place] [address] [place] Glucose Test strip (U) [Mass/Vol] Negative Normal Trace, Negative [facility] Comment on above: Order Comment: Speci men Type: URINE SPECIMENOrdering Facility: [facility] Address: [address] [place] [address] Performed By: #### 2 4356-8 ####[facility] [id number] [place] [address] [place] Hemoglobin Ql (U) Negative Normal Negative, Trace [facility] Comment on above: Order Comment: Speci men Type: URINE SPECIMENOrdering Facility: [facility] Address: [address] [place] [address] Performed By: #### 2 4356-8 ####[facility] [id number] [place] [address] [place] Ketones Ql (U) Negative Normal Negative, Trace [facility] Comment on above: Order Comment: Speci men Type: URINE SPECIMENOrdering Facility: [facility] Address: [address] [place] [address] Performed By: #### 2 4356-8 ####[facility] HOSPITALIA [id number] [place] [address] [place] Leukocyte esterase Test strip Ql (U) Negative Normal Negative, 25 Patito/uL [facility] Comment on above: Order Comment: Speci men Type: URINE SPECIMENOrdering Facility: [facility] Address: [address] [place] [address] Performed By: #### 2 4356-8 ####[facility] [id number] [place] [address] [place] Nitrite Ql (U) Negative Normal Negative [facility] Comment on above: Order Comment: Speci men Type: URINE SPECIMENOrdering Facility: [facility] Address: [address] [place] [address] Performed By: #### 2 4356-8 ####[facility] [id number] [place] [address] [place] pH (U) 7.0 [pH] Normal 5.0-8.0 [facility] Comment on above: Order Comment: Speci men Type: URINE SPECIMENOrdering Facility: [facility] Address: [address] [place] [address] Performed By: #### 2 4356-8 ####[facility] [id number] [place] [address] [place] Protein (U) [Mass/Vol] Trace Normal Trace, Negative [facility] Comment on above: Order Comment: Speci men Type: URINE SPECIMENOrdering Facility: [facility] Address: [address] [place] [address] Performed By: #### 2 4356-8 ####[facility] [id number] [place] [address] [place] RBC LM.HPF (Urine sed) [#/Area] 3-5 /HPF Abnormal 0-3 /HPF [facility] Comment on above: Order Comment: Speci men Type: URINE SPECIMENOrdering Facility: [facility] Address: [address] [place] [address] Performed By: #### 2 4356-8 ####[facility] [id number] [place] [address] [place] Specific gravity (U) [Rel density] 1.024 Normal 1.005-1.030 [facility] Comment on above: Order Comment: Speci men Type: URINE SPECIMENOrdering Facility: [facility] Address: [address] [place] [address] Performed By: #### 2 4356-8 ####[facility] HOSPITALIA [id number] [place] [address] [place] Urobilinogen Ql (U) Normal Normal Normal [facility] Comment on above: Order Comment: Speci men Type: URINE SPECIMENOrdering Facility: [facility] Address: [address] [place] [address] Performed By: #### 2 4356-8 ####[facility] HOSPITALIA [id number] [place] [address] [place] WBC LM.HPF (Urine sed) [#/Area] 0-5 /HPF Normal 0-5 /HPF [facility] Comment on above: Order Comment: Speci men Type: URINE SPECIMENOrdering Facility: [facility] Address: [address] [place] [address] Performed By: #### 2 4356-8 ####[facility] HOSPITALIA [id number] [place] [address] [place] ED Note-Physicianon 06-04-19 ED Note-Physician [phone]. [id number] Normal [facility] Ambulatory Visit Summaryon 0 06-02-2023 Ambulatory Visit Summary Normal [address] [place] [address] [place] [address]- \.br\ Medications\.br\ What How Much When Why [...] for choosing us for your care.\.br\ \.br\ [facility] Family Medicine Office/Clini c Noteon 06-02-2023 Family Medicine Office/Clinic Note Normal [facility] Comment on above: Result Comment: Elec tronically Signed By: Jaquan Paula\.br\Date and Time Signed: 06/02/23 12:30 EDT Provider Letteron 06-02-2023 Provider Letter Normal [facility] Provider Letter Normal [facility] Population Healthon 05-31-19 Population Health Normal [facility] Alanine aminotransferase [En zymatic activity/volume] in Serum or PlasmaOrdered By: Gabino Parker on 05-30-2023 ALT [Catalytic activity/Vol] 11 U/L 7-52 [facility] Comment on above: Performed By: #### L IPASE, CMP, CBC, HEPATIC, MG #### [facility] [address] Albumin [Mass/volume] in Ser um or Plasma by Bromocresol green (BCG) dye binding methoOrdered By: Gabino Parker on 05-30-2023 Albumin BCG dye [Mass/Vol] 4.1 g/dL 3.5-5.7 [facility] Alkaline phosphatase [Enzyma tic activity/volume] in Serum or PlasmaOrdered By: Gabino Parker on 05-30-2023 ALP [Catalytic activity/Vol] 56 U/L 34-104 [facility] Comment on above: Performed By: #### L IPASE, CMP, CBC, HEPATIC, MG #### [address] Aspartate aminotransferase [ Enzymatic activity/volume] in Serum or PlasmaOrdered By: Gabino Parker on 05-30-2023 AST [Catalytic activity/Vol] 22 U/L 13-39 [facility] Comment on above: Performed By: #### L IPASE, CMP, CBC, HEPATIC, MG #### [address] Automated basophil %Ordered By: Gabino Parker on 05-30-2023 Basophils/100 WBC (Bld) 0.4 % . [facility] Comment on above: Performed By: #### L IPASE, CMP, CBC, HEPATIC, MG #### [address] Automated basophil countOrde red By: Gabino Parker on 05-30-2023 Basophils (Bld) [#/Vol] 0.0 10*3/uL 0.0-0.2 [facility] Comment on above: Result Comment: PERF ORMED BY: [place] [address] PATHOLOGIST TALENT ACQUISITION ASSISTANT BAUTISTA BAKER M.D. Performed By: #### L IPASE, CMP, CBC, HEPATIC, MG #### [address] Automated blood monocyte cou ntOrdered By: Gabino Parker on 05-30-2023 Monocytes (Bld) [#/Vol] 0.4 10*3/uL 0.0-0.8 [facility] Comment on above: Performed By: #### L IPASE, CMP, CBC, HEPATIC, MG #### [address] Automated eosinophil %Ordere d By: Gabino Parker on 05-30-2023 Eosinophils/100 WBC (Bld) 0.4 % . [facility] Comment on above: Performed By: #### L IPASE, CMP, CBC, HEPATIC, MG #### [address] Automated eosinophil countOr dered By: Gabino Parker on 05-30-2023 Eosinophils (Bld) [#/Vol] 0.0 10*3/uL 0.0-0.45 [facility] Comment on above: Performed By: #### L IPASE, CMP, CBC, HEPATIC, MG #### [facility] [address] Automated erythrocytes count in urine sediment (number/area)Ordered By: Gabino Parker on 05-30-2023 RBC Auto (Urine sed) [#/Area] 3-4 [HPF] 0-4 [facility] Automated leukocytes count i n urine sediment (number/area)Ordered By: Gabino Parker on 05-30-2023 WBC Auto (Urine sed) [#/Area] 5-9 [HPF] High 0-4 [facility] Automated monocyte %Ordered By: Gabino Parker on 05-30-2023 Monocytes/100 WBC (Bld) 4.5 % . [facility] Comment on above: Performed By: #### L IPASE, CMP, CBC, HEPATIC, MG #### [address] Automated neutrophil %Ordere d By: Gabino Parker on 05-30-2023 Neutrophils/100 WBC (Bld) 79.0 % . [facility] Comment on above: Performed By: #### L IPASE, CMP, CBC, HEPATIC, MG #### [address] Automated urine color determ inationOrdered By: Gabino Parker on 05-30-2023 Color (U) Yellow Yellow [facility] Comment on above: Order Comment: Name Collection Type:: Clean-Voided Midstream Performed By: #### C BC, BMP, HEPATIC, LIPASE #### [facility] [address] [place] [address] Bilirubin Test strip Ql (U)O rdered By: Gabino Parker on 05-30-2023 Bilirubin Ql (U) Negative Negative [facility] Bilirubin.direct [Mass/volum e] in Serum or PlasmaOrdered By: Gabino Parker on 05-30-2023 Bilirubin.direct [Mass/Vol] 0.10 mg/dL 0.03-0.18 [facility] Bilirubin.total [Mass/volume ] in Serum or PlasmaOrdered By: Gabino Parker on 05-30-2023 Bilirubin [Mass/Vol] 0.4 mg/dL 0.3-1.0 [facility] Comment on above: Performed By: #### L IPASE, CMP, CBC, HEPATIC, MG #### [facility] [address] CNPNon 05-30-2023 CNPN Normal [facility] CT abdomen pelvis w conon CT abdomen pelvis w con [facility] [place] [address] [place] [address] CT Scan Report Signed Patient: Abbey Garcia MR#: [id number] : 1990 Acct:[id number] Age/Sex: 33 / F ADM Date: 05/30/23 Loc: ER Room: Type: [facility] ER Attending Dr: Copies to: Gabino Parker [...] Melisa Hutchinson M.D.05/30/2023 5:49 PM Dictation Location: [place] [address] Transcribed By: [facility] 05/30/231748 Dictated By: Melisa Hutchinson II, MD 05/30/231739 Signed By: 05/30/231748 Normal [facility] Calcium [Mass/volume] in Ser um or PlasmaOrdered By: Gabino Parker on 05-30-2023 Calcium [Mass/Vol] 9.3 mg/dL 8.6-10.3 [facility] Comment on above: Performed By: #### L IPASE, CMP, CBC, HEPATIC, MG #### [facility] [address] Carbon dioxide, total [Moles /volume] in Serum or PlasmaOrdered By: Gabino Parker on 05-30-2023 CO2 [Moles/Vol] 27.7 mmol/L 21.0-31.0 [facility] Comment on above: Performed By: #### L IPASE, CMP, CBC, HEPATIC, MG #### [facility] [address] [place] [address] [place] Chloride [Moles/volume] in S elder or PlasmaOrdered By: Gabino Parker on 05-30-2023 Chloride [Moles/Vol] 103 mmol/L 98-107 [facility] Comment on above: Performed By: #### L IPASE, CMP, CBC, HEPATIC, MG #### [address] Complete Blood Count Auto Di ffon 05-30-2023 Mean Corpuscular HGB Conc 33.8 g/dL Normal 32.0-35.0 [facility] Comment on above: Performed By: #### L IPASE, CMP, CBC, HEPATIC, MG #### [address] Monocytes/100 WBC (Bld) 16.47 % Normal 0.00-20.00 [facility] Comment on above: Performed By: #### L IPASE, CMP, CBC, HEPATIC, MG #### [address] NRBC% 0.1 /100{WBC} Normal 0-0.5 [facility] Comment on above: Performed By: #### L IPASE, CMP, CBC, HEPATIC, MG #### [address] Comprehensive Metabolic Pane nestor 05-30-2023 Albumin [Mass/Vol] 4.1 g/dL Normal 3.5-5.7 [facility] Comment on above: Performed By: #### L IPASE, CMP, CBC, HEPATIC, MG #### [address] Creatinine Clr Calc Pharmacy 118.42 Normal [facility] Comment on above: Performed By: #### L IPASE, CMP, CBC, HEPATIC, MG #### [address] GFR/1.73 sq M.predicted MDRD (S/P/Bld) [Vol rate/Area] mL/min/{1.73_m2} Normal [facility] Comment on above: Performed By: #### L IPASE, CMP, CBC, HEPATIC, MG #### [address] Creatinine [Mass/volume] in Serum or PlasmaOrdered By: Gabino Parker on 05-30-2023 Creatinine [Mass/Vol] 0.70 mg/dL 0.60-1.20 [facility] Comment on above: Performed By: #### L IPASE, CMP, CBC, HEPATIC, MG #### [facility] [address] [place] [address] [place] Dipstick and Microscopicon 0 05-30-2023 Appearance (U) Clear Normal Clear [facility] Comment on above: Order Comment: Name Collection Type:: Clean-Voided Midstream Performed By: #### C BC, BMP, HEPATIC, LIPASE #### [address] Bacteria,Urine None Seen Normal None Seen [facility] Comment on above: Order Comment: Name Collection Type:: Clean-Voided Midstream Performed By: #### C BC, BMP, HEPATIC, LIPASE #### [address] Bilirubin,Urine Negative Normal Negative [facility] Comment on above: Order Comment: Name Collection Type:: Clean-Voided Midstream Performed By: #### C BC, BMP, HEPATIC, LIPASE #### [address] Glucose Ql (U) Normal Normal Normal [facility] Comment on above: Order Comment: Name Collection Type:: Clean-Voided Midstream Performed By: #### C BC, BMP, HEPATIC, LIPASE #### [address] Hyaline Casts,Urine 0-8 Normal 0-8 [facility] Comment on above: Order Comment: Name Collection Type:: Clean-Voided Midstream Performed By: #### C BC, BMP, HEPATIC, LIPASE #### [address] Ketones Ql (U) Negative Normal Negative [facility] Comment on above: Order Comment: Name Collection Type:: Clean-Voided Midstream Performed By: #### C BC, BMP, HEPATIC, LIPASE #### [address] Leukocyte esterase Test strip Ql (U) 1+ High Negative [facility] Comment on above: Order Comment: Name Collection Type:: Clean-Voided Midstream Performed By: #### C BC, BMP, HEPATIC, LIPASE #### [place] [address] [place] Nitrite,Urine Negative Normal Negative [facility] Comment on above: Order Comment: Name Collection Type:: Clean-Voided Midstream Performed By: #### C BC, BMP, HEPATIC, LIPASE #### [address] Occult Blood,Urine Negative Normal Negative [facility] Comment on above: Order Comment: Name Collection Type:: Clean-Voided Midstream Performed By: #### C BC, BMP, HEPATIC, LIPASE #### [address] Protein,Urine Negative Normal Negative [facility] Comment on above: Order Comment: Name Collection Type:: Clean-Voided Midstream Performed By: #### C BC, BMP, HEPATIC, LIPASE #### [address] RBC,Urine 3-4 Normal 0-4 [facility] Comment on above: Order Comment: Name Collection Type:: Clean-Voided Midstream Performed By: #### C BC, BMP, HEPATIC, LIPASE #### [address] Specificy [place],Urine 1.011 Normal 1.001-1.030 [facility] Comment on above: Order Comment: Name Collection Type:: Clean-Voided Midstream Performed By: #### C BC, BMP, HEPATIC, LIPASE #### [address] Squamous Epithelial Cell,Urine 0-1 Normal 0-2 [facility] Comment on above: Order Comment: Name Collection Type:: Clean-Voided Midstream Performed By: #### C BC, BMP, HEPATIC, LIPASE #### [address] Urobilinogen,Urine Normal Normal Normal [facility] Comment on above: Order Comment: Name Collection Type:: Clean-Voided Midstream Performed By: #### C BC, BMP, HEPATIC, LIPASE #### [facility] [address] WBC,Urine 5-9 High 0-4 [facility] Comment on above: Order Comment: Name Collection Type:: Clean-Voided Midstream Performed By: #### C BC, BMP, HEPATIC, LIPASE #### [facility] [address] Erythrocyte distribution wid th [Ratio] by Automated countOrdered By: Gabino Parker on 05-30-2023 Erythrocyte distribution width (RBC) [Ratio] 15.5 % High 11.9-15.3 [facility] Comment on above: Performed By: #### L IPASE, CMP, CBC, HEPATIC, MG #### [address] Erythrocytes [#/volume] in B lood by Automated countOrdered By: Gabino Parker on 05-30-2023 RBC (Bld) [#/Vol] 3.86 10*6/uL 3.60-5.00 [facility] Comment on above: Performed By: #### L IPASE, CMP, CBC, HEPATIC, MG #### [address] Glucose [Mass/volume] in Ser um or PlasmaOrdered By: Gabino Parker on 05-30-2023 Glucose [Mass/Vol] 81 mg/dL 70-100 [facility] Comment on above: ADA recommended refe rence rangeRandom Glucose Reference Range is dependent on time and content of last meal. Glucose of more than 200 mg/dL in a nonstressed, ambulatory subject supports the diagnosis of Diabetes Mellitus. Result Comment: [place] om Glucose Reference Range is dependent on time and content of last meal. Glucose of more than 200 mg/dL in a nonstressed, ambulatory subject supports the diagnosis of Diabetes Mellitus. ADA recommended reference range Performed By: #### L IPASE, CMP, CBC, HEPATIC, MG #### [address] HCG ( test) [place].rapi d Ql (U)Ordered By: Gabino Parker on 05-30-2023 HCG ( test) Ql (U) Negative [facility] HCG,Urineon 05-30-2023 Beta HCG ( test) Ql (U) Negative Normal [facility] Comment on above: Order Comment: Name Collection Type:: Clean-Voided Midstream Result Comment: PERF ORMED BY: [place] [address] PATHOLOGIST TALENT ACQUISITION ASSISTANT BAUTISTA BAKER M.D. Performed By: #### C BC, BMP, HEPATIC, LIPASE #### [address] Hematocrit [Volume Fraction] of Blood by Automated countOrdered By: Gabino Parker on 05-30-2023 Hematocrit (Bld) [Volume fraction] 34.9 % 34.0-46.4 [facility] Comment on above: Performed By: #### L IPASE, CMP, CBC, HEPATIC, MG #### [address] Hemoglobin [Mass/volume] in BloodOrdered By: Gabino Parker on 05-30-2023 Hemoglobin (Bld) [Mass/Vol] 11.8 g/dL 11.8-15.4 [facility] Comment on above: Performed By: #### L IPASE, CMP, CBC, HEPATIC, MG #### [address] Hepatic Panelon 05-30-2023 Bilirubin,Indirect 0.3 mg/dL Normal [facility] Comment on above: Performed By: #### L IPASE, CMP, CBC, HEPATIC, MG #### [address] Bilirubin.indirect [Mass/Vol] 0.10 mg/dL Normal 0.03-0.18 [facility] Comment on above: Performed By: #### L IPASE, CMP, CBC, HEPATIC, MG #### [address] Ketones Auto test strip (U) [Mass/Vol]Ordered By: Gabino Parker on 05-30-2023 Ketones (U) [Mass/Vol] Negative Negative [facility] - UrinalysisOrder ed By: Gabino Parker on 05-30-2023 Hyaline casts LM Ql (Urine sed) 0-8 [LPF] 0-8 [facility] Leukocytes [#/volume] correc darvin for nucleated erythrocytes in Blood by Automated counOrdered By: Gabino Parker on 05-30-2023 WBC corrected for nucl RBC Auto (Bld) [#/Vol] 8.8 10*3/uL 3.8-11.6 [facility] Leukocytes [#/volume] in Blo od by Automated countOrdered By: Gabino Parker on 05-30-2023 WBC (Bld) [#/Vol] 8.8 10*3/uL 3.8-11.6 [facility] Comment on above: Performed By: #### L IPASE, CMP, CBC, HEPATIC, MG #### [facility] [address] [place] [address] [place] Lipase [Enzymatic activity/v olume] in Serum or PlasmaOrdered By: Gabino Parker on 05-30-2023 Lipase [Catalytic activity/Vol] 37.0 U/L 11.0-82.0 [facility] Comment on above: Result Comment: PERF ORMED BY: [place] [address] PATHOLOGIST TALENT ACQUISITION ASSISTANT BAUTISTA BAKER M.D. Performed By: #### L IPASE, CMP, CBC, HEPATIC, MG #### [facility] [address] [place] [address] [place] Lymphocytes [#/volume] in Bl ood by Automated countOrdered By: Gabino Parker on 05-30-2023 Lymphocytes (Bld) [#/Vol] 1.4 10*3/uL 1.00-4.8 [facility] Comment on above: Performed By: #### L IPASE, CMP, CBC, HEPATIC, MG #### [facility] [address] [place] [address] [place] Lymphocytes/100 leukocytes i n Blood by Automated countOrdered By: Gabino Parker on 05-30-2023 Lymphocytes/100 WBC (Bld) 15.7 % . [facility] Comment on above: Performed By: #### L IPASE, CMP, CBC, HEPATIC, MG #### [facility] [address] [place] [address] MCH [Entitic mass] by Automa darvin countOrdered By: Gabino Parker on 05-30-2023 MCH (RBC) [Entitic mass] 30.5 pg 24.7-34.3 [facility] Comment on above: Performed By: #### L IPASE, CMP, CBC, HEPATIC, MG #### [facility] [address] [place] [address] MCHC Auto (RBC) [Mass/Vol]Or dered By: Gabino Parker on 05-30-2023 MCHC (RBC) [Mass/Vol] 33.8 g/dL 32.0-35.0 [facility] MCV [Entitic volume] by Auto mated countOrdered By: Gabino Parker on 05-30-2023 MCV (RBC) [Entitic vol] 90.3 fL 80-100 [facility] Comment on above: Performed By: #### L IPASE, CMP, CBC, HEPATIC, MG #### [facility] [address] [place] [address] Magnesium [Mass/volume] in S elder or PlasmaOrdered By: Gabino Parker on 05-30-2023 Magnesium [Mass/Vol] 2.1 mg/dL 1.9-2.7 [facility] Comment on above: Performed By: #### L IPASE, CMP, CBC, HEPATIC, MG #### [facility] [address] [place] [address] [place] Monocyte distribution width [Entitic volume] in Blood by AutomatedOrdered By: Gabino Parker on 05-30-2023 Monocyte distribution width Auto (Bld) [Entitic vol] 16.47 % 0.00-20.00 [facility] Neutrophils [#/volume] in Bl ood by Automated countOrdered By: Gabino Parker on 05-30-2023 Neutrophils (Bld) [#/Vol] 6.9 10*3/uL 1.8-7.7 [facility] Comment on above: Performed By: #### L IPASE, CMP, CBC, HEPATIC, MG #### [facility] [address] Nitrite Test strip Ql (U)Ord ered By: Gabino Parker on 05-30-2023 Nitrite Ql (U) Negative Negative [facility] No Panel InformationOrdered By: Gabino Parker on 05-30-2023 Estimated GFR (CKD-EPI) > 60.0 mL/Min [facility] Creatinine Clearance (Chem 118.42 [facility] Nucleated erythrocytes [Pres ence] in Blood by Automated countOrdered By: Gabino Parker on 05-30-2023 Nucleated RBC Auto Ql (Bld) 0.1 /100{WBC} 0-0.5 [facility] Platelet mean volume [Entiti c volume] in Blood by Automated countOrdered By: Gabino Parker on 05-30-2023 Platelet mean volume (Bld) [Entitic vol] 9.5 fL 6.3-10.7 [facility] Comment on above: Performed By: #### L IPASE, CMP, CBC, HEPATIC, MG #### [facility] [address] [place] [address] [place] Platelets [#/volume] in Bloo d by Automated countOrdered By: Gabino Parker on 05-30-2023 Platelets (Bld) [#/Vol] 270 10*3/uL 150-450 [facility] Comment on above: Performed By: #### L IPASE, CMP, CBC, HEPATIC, MG #### [facility] [address] [place] [address] [place] Potassium [Moles/volume] in Serum or PlasmaOrdered By: Gabino Parker on 05-30-2023 Potassium [Moles/Vol] 4.0 mmol/L 3.5-5.1 [facility] Comment on above: Performed By: #### L IPASE, CMP, CBC, HEPATIC, MG #### [facility] [address] [place] [address] Protein Auto test strip (U) [Mass/Vol]Ordered By: Gabino Parker on 05-30-2023 Protein (U) [Mass/Vol] Negative Negative [facility] Protein [Mass/volume] in Ser um or PlasmaOrdered By: Gabino Parker on 05-30-2023 Protein [Mass/Vol] 7.2 g/dL 6.4-8.9 [facility] Comment on above: Performed By: #### L IPASE, CMP, CBC, HEPATIC, MG #### [facility] [address] [place] [address] Serum globulin measurement b y calculation (mass/volume)Ordered By: Gabino Parker on 05-30-2023 Globulin (S) [Mass/Vol] 3.1 g/dL [facility] Comment on above: Performed By: #### L IPASE, CMP, CBC, HEPATIC, MG #### [address] Serum or plasma albumin/glob ulin mass ratioOrdered By: Gabino Parker on 05-30-2023 Albumin/Globulin [Mass ratio] 1.3 {ratio} [facility] Comment on above: Performed By: #### L IPASE, CMP, CBC, HEPATIC, MG #### [facility] [address] [place] [address] Serum or plasma anion gap de terminationOrdered By: Gabino Parker on 05-30-2023 Anion gap [Moles/Vol] 12.3 mmol/L 6.0-15.0 [facility] Comment on above: Performed By: #### L IPASE, CMP, CBC, HEPATIC, MG #### [address] Serum or plasma non-glucuron idated bilirubin measurement (mass/volume)Ordered By: Gabino Parker on 05-30-2023 Bilirubin.indirect [Mass/Vol] 0.3 mg/dL [facility] Sodium [Moles/volume] in Ser um or PlasmaOrdered By: Gabino Parker on 05-30-2023 Sodium [Moles/Vol] 139 mmol/L 136-145 [facility] Comment on above: Performed By: #### L IPASE, CMP, CBC, HEPATIC, MG #### [address] [place] [address] [facility] Specific gravity Auto test s trip (U) [Rel density]Ordered By: Gabino Parker on 05-30-2023 Specific gravity (U) [Rel density] 1.011 1.001-1.030 [facility] Squamous epithelial cells de tection in urine sediment by light microscopyOrdered By: Gabino Parker on 05-30-2023 Epithelial cells.squamous LM Ql (Urine sed) 0-1 [HPF] 0-2 [facility] Urea nitrogen [Mass/volume] in Serum or PlasmaOrdered By: Gabino Parker on 05-30-2023 Urea nitrogen [Mass/Vol] 6 mg/dL Low 7-25 [facility] Comment on above: Performed By: #### L IPASE, CMP, CBC, HEPATIC, MG #### [facility] [address] [place] [address] Urine Cultureon 05-30-2023 Bacteria identified Cx Nom (U) 75,000 colonies/ml mixed bacterial skin contaminants 2 Days PERFORMED BY: [place] [address] PATHOLOGIST TALENT ACQUISITION ASSISTANT BAUTISTA BAKER M.D. Normal [facility] Comment on above: Performed By: #### C BC, BMP, HEPATIC, LIPASE #### [place] [id number] [facility] Urine bacteria detection by automated methodOrdered By: Gabino Parker on 05-30-2023 Bacteria Auto Ql (U) None seen None Seen [facility] Urine clarity by refractomet ry automatedOrdered By: Gabino Parker on 05-30-2023 Clarity Refractometry automated (U) Clear Clear [facility] Urine culture routineOrdered By: Gabino Parker on 05-30-2023 Bacteria identified Cx Nom (U) 2 Days [facility] Urine glucose measurement by automated test strip (mass/volume)Ordered By: Gabino Parker on 05-30-2023 Glucose Auto test strip (U) [Mass/Vol] Normal mg/dL Normal [facility] Urine hemoglobin detection b y automated test stripOrdered By: Gabino Parker on 05-30-2023 Hemoglobin Auto test strip Ql (U) Negative Negative [facility] Urine leukocyte esterase det ection by automated test stripOrdered By: Gabino Parker on 05-30-2023 Leukocyte esterase Auto test strip Ql (U) 1+ High Negative [facility] Urine pH measurement by auto mated test stripOrdered By: Gabino Parker on 05-30-2023 pH (U) [pH] 5.0-9.0 [facility] Comment on above: Order Comment: Name Collection Type:: Clean-Voided Midstream Performed By: #### C BC, BMP, HEPATIC, LIPASE #### [facility] [address] Urobilinogen Auto test strip (U) [Mass/Vol]Ordered By: Gabino Parker on 05-30-2023 Urobilinogen (U) [Mass/Vol] Normal mg/dL Normal [facility] Basic metabolic 2000 panelon 05-28-2023 Anion gap [Moles/Vol] 10 mmol/L Normal 9-18 [facility] Comment on above: Order Comment: Speci men Type: BLOOD SPECIMENOrdering Facility: [facility] Address: [address] [place] [address] Performed By: #### 1 9123-9, 2777-1, 61649-3 ####[facility]ORY[facility] [id number] [place] [id number] [place] Calcium [Mass/Vol] 8.5 mg/dL Normal 8.5-10.2 [facility] Comment on above: Order Comment: Speci men Type: BLOOD SPECIMENOrdering Facility: [facility] Address: [address] [place] [address] Performed By: #### 1 9123-9, 2777-1, 03379-0 ####[facility]ORYCLIA [id number] [place] [address] [place] Chloride [Moles/Vol] 105 mmol/L Normal 97-105 [facility] Comment on above: Order Comment: Speci men Type: BLOOD SPECIMENOrdering Facility: [facility] Address: [address] [place] [address] Performed By: #### 1 9123-9, 2777-, 92229-9 ####[facility]ATORYCLIA [id number] [place] [address] [place] CO2 [Moles/Vol] 24 mmol/L Normal 22-30 [facility] Comment on above: Order Comment: Speci men Type: BLOOD SPECIMENOrdering Facility: [facility] Address: [address] [place] [address] Performed By: #### 1 9123-9, 27708-15, 70390-9 ####[facility]ORYCLIA [id number] [place] [address] [place] Creatinine [Mass/Vol] 0.52 mg/dL Low 0.58-0.96 [facility] Comment on above: Order Comment: Speci men Type: BLOOD SPECIMENOrdering Facility: [facility] Address: [address] [place] [address] Performed By: #### 1 9123-9, 27708-15, ####[facility]ORYCLIA [id number] [place] [address] [place] Creatinine and Glomerular filtration rate.predicted panel (S/P/Bld) 125 mL/min/1.73m??? Normal >=60 [facility] Comment on above: Order Comment: Speci men Type: BLOOD SPECIMENOrdering Facility: [facility] Address: [address] [place] [address] Result Comment: Jessica mated Glomerular Filtration Rate [...] GFR. Performed By: #### 1 9123-9, 2777, 44651-2 ####[facility]ORYCLIA [id number] [place] [address] [place] Glucose [Mass/Vol] 77 mg/dL Normal 74-99 [facility] Comment on above: Order Comment: Speci men Type: BLOOD SPECIMENOrdering Facility: [facility] Address: [address] [place] [id number] Result Comment: The [place] [employer] (ADA) provides guidance for cutoff [...] Standards of Medical Care in Diabetes 2016, [place] [employer]. Diabetes Care. 2016.39(Suppl 1). Performed By: #### 1 9123-9, 2777-, 63713-9 ####[facility] LABORATORYCLIA [id number] [place] [address] [place] Potassium [Moles/Vol] 4.2 mmol/L Normal 3.7-5.1 [facility] Comment on above: Order Comment: Speci men Type: BLOOD SPECIMENOrdering Facility: [facility] Address: [address] [place] [address] Performed By: #### 1 9123-9, 2777-, 76989-5 ####[facility] LABORATORYCLIA [id number] [place] [address] [place] Sodium [Moles/Vol] 139 mmol/L Normal 136-144 [facility] Comment on above: Order Comment: Speci men Type: BLOOD SPECIMENOrdering Facility: [facility] Address: [address] [place] [id number] Performed By: #### 1 9123-9, 2777, 18840-1 ####[facility] LABORATORYCLIA [id number] [place] [address] [place] Urea nitrogen [Mass/Vol] 8 mg/dL Normal 7-21 [facility] Comment on above: Order Comment: Speci men Type: BLOOD SPECIMENOrdering Facility: [facility] Address: [address] [place] [address] Performed By: #### 1 9123-9, 2777-1, 37869-6 ####[facility] LABORATORYCLIA [id number] [place] [address] [facility] CBC panel Auto (Bld)on 05-27 Erythrocyte distribution width (RBC) [Ratio] 13.7 % Normal 11.5-15.0 [facility] Comment on above: Order Comment: Speci men Type: BLOOD SPECIMENOrdering Facility: [facility] Address: [address] [place] [address] Performed By: #### 5 8410-2 ####[facility] LABORATORYCLIA [id number] [address] Hematocrit (Bld) [Volume fraction] 31.5 % Low 36.0-46.0 [facility] Comment on above: Order Comment: Speci men Type: BLOOD SPECIMENOrdering Facility: [facility] Address: [address] [place] [address] Performed By: #### 5 8410-2 ####[facility] LABORATORYCLIA [id number] [address] [place] Hemoglobin (Bld) [Mass/Vol] 11.1 g/dL Low 11.5-15.5 [facility] Comment on above: Order Comment: Speci men Type: BLOOD SPECIMENOrdering Facility: [facility] Address: [address] [place] [address] Performed By: #### 5 8410-2 ####[facility] LABORATORYCLIA [id number] [place] [address] [place] MCH (RBC) [Entitic mass] 31.4 pg Normal 26.0-34.0 [facility] Comment on above: Order Comment: Speci men Type: BLOOD SPECIMENOrdering Facility: [facility] Address: [address] [place] [address] Performed By: #### 5 8410-2 ####[facility]ATORYCLIA [id number] [address] [place] MCHC (RBC) [Mass/Vol] 35.2 g/dL Normal 30.5-36.0 [facility] Comment on above: Order Comment: Speci men Type: BLOOD SPECIMENOrdering Facility: [facility] Address: [address] [place] [address] Performed By: #### 5 8410-2 ####[facility]ORATORYCLIA [id number] [place] [address] [place] MCV (RBC) [Entitic vol] 89.2 fL Normal 80.0-100.0 [facility] Comment on above: Order Comment: Speci men Type: BLOOD SPECIMENOrdering Facility: [facility] Address: [address] [place] [address] Performed By: #### 5 8410-2 ####[facility] LABORATORYCLIA [id number] [address] [place] Nucleated RBC (Bld) [#/Vol] 10*3/uL Normal <0.01 [facility] Comment on above: Order Comment: Speci men Type: BLOOD SPECIMENOrdering Facility: [facility] Address: [address] [place] [address] Performed By: #### 5 8410-2 ####[facility]ORATORYCLIA [id number] [place] [address] [place] Platelet mean volume (Bld) [Entitic vol] 11.8 fL Normal 9.0-12.7 [facility] Comment on above: Order Comment: Speci men Type: BLOOD SPECIMENOrdering Facility: [facility] Address: [address] [place] [address] Performed By: #### 5 8410-2 ####[facility] LABORATORYCLIA [id number] [place] [address] [place] Platelets (Bld) [#/Vol] 199 10*3/uL Normal 150-400 [facility] Comment on above: Order Comment: Speci men Type: BLOOD SPECIMENOrdering Facility: [facility] Address: [address] [place] [address] Performed By: #### 5 8410-2 ####[facility]ATORYCLIA [id number] [place] [address] [place] RBC (Bld) [#/Vol] 3.53 10*6/uL Low 3.90-5.20 [facility] Comment on above: Order Comment: Speci men Type: BLOOD SPECIMENOrdering Facility: [facility] Address: [address] [place] [address] Performed By: #### 5 8410-2 ####[facility]ORYCLIA [id number] [place] [address] [place] WBC (Bld) [#/Vol] 6.24 10*3/uL Normal 3.70-11.00 [facility] Comment on above: Order Comment: Speci men Type: BLOOD SPECIMENOrdering Facility: [facility] Address: [address] [place] [address] Performed By: #### 5 8410-2 ####[facility]ORYCLIA [id number] [place] [address] [place] CNCOon 05-28-2023 CNCO Letter Text Normal [facility] CNDSon 05-28-2023 CNDS Normal [facility] CNPNon 05-28-2023 CNPN Normal [facility] Magnesium SerPl-ncon 05-27 Magnesium [Mass/Vol] 1.9 mg/dL Normal 1.7-2.3 [facility] Comment on above: Order Comment: Speci men Type: BLOOD SPECIMENOrdering Facility: [facility] Address: [address] [place] [address] Performed By: #### 1 9123-9, 2777-1, 65326-3 ####[facility]ATORYCLIA [id number] [place] [address] [place] NURSING PROGon 05-28-2023 NURSING PROG Normal [facility] Phosphate SerPl-mCncon 05-27 Phosphate [Mass/Vol] 2.3 mg/dL Low 2.7-4.8 [facility] Comment on above: Order Comment: Speci men Type: BLOOD SPECIMENOrdering Facility: [facility] Address: [address] [place] [address] Performed By: #### 1 9123-9, 2777-1, 31080-3 ####[facility] LABORATORYCLIA [id number] [place] [address] [place] Basic metabolic 2000 panelon 05-27-2023 Anion gap [Moles/Vol] 10 mmol/L Normal 9-18 [facility] Comment on above: Order Comment: Speci men Type: BLOOD SPECIMENOrdering Facility: [facility] Address: [address] [place] [address] Performed By: #### 2 777-1, 90219-3, ####[facility] LABORATORYCLIA [id number] [place] [address] [place] Calcium [Mass/Vol] 8.9 mg/dL Normal 8.5-10.2 [facility] Comment on above: Order Comment: Speci men Type: BLOOD SPECIMENOrdering Facility: [facility] Address: [address] [place] [address] Performed By: #### 2 777-1, 53080-0, ####[facility] LABORATORYCLIA [id number] [place] [address] [place] Chloride [Moles/Vol] 104 mmol/L Normal 97-105 [facility] Comment on above: Order Comment: Speci men Type: BLOOD SPECIMENOrdering Facility: [facility] Address: [address] [place] [id number] Performed By: #### 2 777-1, 48137-3, ####[facility] LABORATORYCLIA [id number] [place] [address] [place] CO2 [Moles/Vol] 25 mmol/L Normal 22-30 [facility] Comment on above: Order Comment: Speci men Type: BLOOD SPECIMENOrdering Facility: [facility] Address: [address] [place] [id number] Performed By: #### 2 777-1, 24543-5, ####[facility] LABORATORYCLIA [id number] [address] STATES OF [facility] Creatinine [Mass/Vol] 0.57 mg/dL Low 0.58-0.96 [facility] Comment on above: Order Comment: Geraldo marrero Type: BLOOD SPECIMENOrdering Facility: [facility] Address: [address] [place] [address] Performed By: #### 2 777-1, 39226-7, ####[facility]ATORYCLIA [id number] [place] [id number] [facility] Creatinine and Glomerular filtration rate.predicted panel (S/P/Bld) 122 mL/min/1.73m??? Normal >=60 [facility] Comment on above: Order Comment: Geraldo marrero Type: BLOOD SPECIMENOrdering Facility: [facility] Address: [address] [place] [address] Result Comment: Jessica mated Glomerular Filtration Rate [...] actual GFR. Performed By: #### 2 777-1, 50066-6, ####[facility]ATORYCLIA [id number] [place] [address] [place] Glucose [Mass/Vol] 101 mg/dL High 74-99 [facility] Comment on above: Order Comment: Geraldo marrero Type: BLOOD SPECIMENOrdering Facility: [facility] Address: [address] [place] [address] Result Comment: The [place] [employer] (ADA) provides guidance for cutoff [...] Standards of Medical Care in Diabetes 2016, [place] [employer]. Diabetes Care. 2016.39(Suppl 1). Performed By: #### 2 777-1, 89676-1, ####[facility] LABORATORYCLIA [id number] [place] [address] [place] Potassium [Moles/Vol] 4.0 mmol/L Normal 3.7-5.1 [facility] Comment on above: Order Comment: Speci men Type: BLOOD SPECIMENOrdering Facility: [facility] Address: [address] [place] [address] Performed By: #### 2 777-1, 95419-9, ####[facility]ATORYCLIA [id number] [place] [address] [place] Sodium [Moles/Vol] 139 mmol/L Normal 136-144 [facility] Comment on above: Order Comment: Speci men Type: BLOOD SPECIMENOrdering Facility: [facility] Address: [address] [place] [address] Performed By: #### 2 777-1, , ####[facility]ATORYCLIA [id number] [place] [address] [place] Urea nitrogen [Mass/Vol] 6 mg/dL Low 7-21 [facility] Comment on above: Order Comment: Speci men Type: BLOOD SPECIMENOrdering Facility: [facility] Address: [address] [place] [address] Performed By: #### 2 777-1, 63631-0, ####[facility]ATORYCLIA [id number] [place] [id number] [place] CASE MANAGEMon 05-27-2023 CASE MANAGEM Normal [facility] CBC panel Auto (Bld)on 05-26 Erythrocyte distribution width (RBC) [Ratio] 13.5 % Normal 11.5-15.0 [facility] Comment on above: Order Comment: Speci men Type: BLOOD SPECIMENOrdering Facility: [facility] Address: [address] [place] [address] Performed By: #### 5 8410-2 ####[facility] LABORATORYCLIA [id number] [address] [place] Hematocrit (Bld) [Volume fraction] 36.5 % Normal 36.0-46.0 [facility] Comment on above: Order Comment: Speci men Type: BLOOD SPECIMENOrdering Facility: [facility] Address: [address] [place] [address] Performed By: #### 5 8410-2 ####[facility] LABORATORYCLIA [id number] [place] [address] [place] Hemoglobin (Bld) [Mass/Vol] 12.8 g/dL Normal 11.5-15.5 [facility] Comment on above: Order Comment: Speci men Type: BLOOD SPECIMENOrdering Facility: [facility] Address: [address] [place] [address] Performed By: #### 5 8410-2 ####[facility] LABORATORYCLIA [id number] [place] [address] [place] MCH (RBC) [Entitic mass] 30.9 pg Normal 26.0-34.0 [facility] Comment on above: Order Comment: Speci men Type: BLOOD SPECIMENOrdering Facility: [facility] Address: [address] [place] [address] Performed By: #### 5 8410-2 ####[facility] LABORATORYCLIA [id number] [place] [address] [place] MCHC (RBC) [Mass/Vol] 35.1 g/dL Normal 30.5-36.0 [facility] Comment on above: Order Comment: Speci men Type: BLOOD SPECIMENOrdering Facility: [facility] Address: [address] [place] [address] Performed By: #### 5 8410-2 ####[facility] LABORATORYCLIA [id number] [address] [place] MCV (RBC) [Entitic vol] 88.2 fL Normal 80.0-100.0 [facility] Comment on above: Order Comment: Speci men Type: BLOOD SPECIMENOrdering Facility: [facility] Address: [address] [place] [address] Performed By: #### 5 8410-2 ####[facility] LABORATORYCLIA [id number] [place] [id number] [place] Nucleated RBC (Bld) [#/Vol] 10*3/uL Normal <0.01 [facility] Comment on above: Order Comment: Speci men Type: BLOOD SPECIMENOrdering Facility: [facility] Address: [address] [place] [address] Performed By: #### 5 8410-2 ####[facility]ATORYCLIA [id number] [place] [address] [place] Platelet mean volume (Bld) [Entitic vol] 11.5 fL Normal 9.0-12.7 [facility] Comment on above: Order Comment: Speci men Type: BLOOD SPECIMENOrdering Facility: [facility] Address: [address] [place] [address] Performed By: #### 5 8410-2 ####[facility] LABORATORYCLIA [id number] [place] [address] [place] Platelets (Bld) [#/Vol] 205 10*3/uL Normal 150-400 [facility] Comment on above: Order Comment: Speci men Type: BLOOD SPECIMENOrdering Facility: [facility] Address: [address] [place] [address] Performed By: #### 5 8410-2 ####[facility] LABORATORYCLIA [id number] [place] [id number] [place] RBC (Bld) [#/Vol] 4.14 10*6/uL Normal 3.90-5.20 [facility] Comment on above: Order Comment: Speci men Type: BLOOD SPECIMENOrdering Facility: [facility] Address: [address] [place] [address] Performed By: #### 5 8410-2 ####[facility] LABORATORYCLIA [id number] [place] [address] [place] WBC (Bld) [#/Vol] 6.24 10*3/uL Normal 3.70-11.00 [facility] Comment on above: Order Comment: Speci men Type: BLOOD SPECIMENOrdering Facility: [facility] Address: [address] [place], [place] [address] Performed By: #### 5 8410-2 ####[facility] LABORATORYCLIA [id number] [place] [address] [place] Magnesium SerPl-mCncon 05-26 Magnesium [Mass/Vol] 1.8 mg/dL Normal 1.7-2.3 [facility] Comment on above: Order Comment: Speci men Type: BLOOD SPECIMENOrdering Facility: [facility] Address: [address] [place] [address] Performed By: #### 2 777-1, 78146-1, ####[facility] LABORATORYCLIA [id number] [place] [address] [place] NURSING PROGon 05-27-2023 NURSING PROG Normal [facility] NUTRITIONon 05-27-2023 NUTRITION Normal [facility] Phosphate SerPl-mCncon 05-26 Phosphate [Mass/Vol] 2.4 mg/dL Low 2.7-4.8 [facility] Comment on above: Order Comment: Speci men Type: BLOOD SPECIMENOrdering Facility: [facility] Address: [address] [place] [address] Performed By: #### 2 777-1, 46042-0, ####[facility] LABORATORYCLIA [id number] [place] [address] [place] ALLIED HEALTHon 05-26-2023 ALLIED HEALTH Normal [facility] Basic metabolic 2000 panelon 05-26-2023 Anion gap [Moles/Vol] 13 mmol/L Normal 9-18 [facility] Comment on above: Order Comment: Speci men Type: BLOOD SPECIMENOrdering Facility: [facility] Address: [address] [place] [address] Performed By: #### 2 4321-2, , 2776-02 ####[facility] LABORATORYCLIA [id number] [place] [address] [place] Calcium [Mass/Vol] 9.0 mg/dL Normal 8.5-10.2 [facility] Comment on above: Order Comment: Speci men Type: BLOOD SPECIMENOrdering Facility: [facility] Address: [address] [place] [address] Performed By: #### 2 4321-2, , 2776-02 ####[facility] LABORATORYCLIA [id number] [place] [address] [place] Chloride [Moles/Vol] 103 mmol/L Normal 97-105 [facility] Comment on above: Order Comment: Speci men Type: BLOOD SPECIMENOrdering Facility: [facility] Address: [address] [place] [address] Performed By: #### 2 1-2, , 2776-02 ####[facility] LABORATORYCLIA [id number] [place] [address] [place] CO2 [Moles/Vol] 20 mmol/L Low 22-30 [facility] Comment on above: Order Comment: Speci men Type: BLOOD SPECIMENOrdering Facility: [facility] Address: [address] [place] [address] Performed By: #### 2 4321-2, , 2776-02 ####[facility] LABORATORYCLIA [id number] [place] [address] [place] Creatinine [Mass/Vol] 0.68 mg/dL Normal 0.58-0.96 [facility] Comment on above: Order Comment: Speci men Type: BLOOD SPECIMENOrdering Facility: [facility] Address: [address] [place] [address] Performed By: #### 2 4321-2, , 2776-02 ####[facility] LABORATORYCLIA [id number] [place] [address] [place] Creatinine and Glomerular filtration rate.predicted panel (S/P/Bld) 117 mL/min/1.73m??? Normal >=60 [facility] Comment on above: Order Comment: Geraldo marrero Type: BLOOD SPECIMENOrdering Facility: [facility] Address: [address] [place] [address] Result Comment: Jessica mated Glomerular Filtration Rate [...] actual GFR. Performed By: #### 2 4321-2, 97888-0, 2776-02 ####[facility] LABORATORYCLIA [id number] [place] [address] [place] Glucose [Mass/Vol] 71 mg/dL Low 74-99 [facility] Comment on above: Order Comment: Geraldo marrero Type: BLOOD SPECIMENOrdering Facility: [facility] Address: [address] [place] [address] Result Comment: The [place] [employer] (ADA) provides guidance for cutoff [...] Standards of Medical Care in Diabetes 2016, [place] [employer]. Diabetes Care. 2016.39(Suppl 1). Performed By: #### 2 4321-2, , 2776-02 ####[facility] LABORATORYCLIA [id number] [place] [address] [place] Potassium [Moles/Vol] 4.3 mmol/L Normal 3.7-5.1 [facility] Comment on above: Order Comment: Geraldo marrero Type: BLOOD SPECIMENOrdering Facility: [facility] Address: [address] [place] [id number] Performed By: #### 2 4321-2, , 2776-02 ####[facility] LABORATORYCLIA [id number] [place] [address] [place] Sodium [Moles/Vol] 136 mmol/L Normal 136-144 [facility] Comment on above: Order Comment: Speci men Type: BLOOD SPECIMENOrdering Facility: [facility] Address: [address] [place] [address] Performed By: #### 2 4321-2, , 2776-02 ####[facility] LABORATORYCLIA [id number] [place] [address] [place] Urea nitrogen [Mass/Vol] 10 mg/dL Normal 7-21 [facility] Comment on above: Order Comment: Speci men Type: BLOOD SPECIMENOrdering Facility: [facility] Address: [address] [place] [address] Performed By: #### 2 4321-2, , 2776-02 ####[facility] LABORATORYCLIA [id number] [place] [address] [place] CASE MGT INIT ASSESon 2023 CASE MGT INIT ASSES Normal [facility] CBC panel Auto (Bld)on 05-25 Erythrocyte distribution width (RBC) [Ratio] 13.3 % Normal 11.5-15.0 [facility] Comment on above: Order Comment: Speci men Type: BLOOD SPECIMENOrdering Facility: [facility] Address: [address] [place] [address] Performed By: #### 5 8410-2 ####[facility] LABORATORYCLIA [id number] [place] [address] [place] Hematocrit (Bld) [Volume fraction] 33.8 % Low 36.0-46.0 [facility] Comment on above: Order Comment: Speci men Type: BLOOD SPECIMENOrdering Facility: [facility] Address: [address] [place] [address] Performed By: #### 5 8410-2 ####[facility] LABORATORYCLIA [id number] [place] [address] [place] Hemoglobin (Bld) [Mass/Vol] 11.5 g/dL Normal 11.5-15.5 [facility] Comment on above: Order Comment: Speci men Type: BLOOD SPECIMENOrdering Facility: [facility] Address: [address] [place] [address] Performed By: #### 5 8410-2 ####[facility] LABORATORYCLIA [id number] [place] [address] [place] MCH (RBC) [Entitic mass] 30.5 pg Normal 26.0-34.0 [facility] Comment on above: Order Comment: Speci men Type: BLOOD SPECIMENOrdering Facility: [facility] Address: [address] [place] [address] Performed By: #### 5 8410-2 ####[facility] LABORATORYCLIA [id number] [address] [place] MCHC (RBC) [Mass/Vol] 34.0 g/dL Normal 30.5-36.0 [facility] Comment on above: Order Comment: Speci men Type: BLOOD SPECIMENOrdering Facility: [facility] Address: [address] [place] [address] Performed By: #### 5 8410-2 ####[facility] LABORATORYCLIA [id number] [address] [place] MCV (RBC) [Entitic vol] 89.7 fL Normal 80.0-100.0 [facility] Comment on above: Order Comment: Speci men Type: BLOOD SPECIMENOrdering Facility: [facility] Address: [address] [place] [address] Performed By: #### 5 8410-2 ####[facility] LABORATORYCLIA [id number] [address] [place] Nucleated RBC (Bld) [#/Vol] 10*3/uL Normal <0.01 [facility] Comment on above: Order Comment: Speci men Type: BLOOD SPECIMENOrdering Facility: [facility] Address: [address] [place] [address] Performed By: #### 5 8410-2 ####[facility] LABORATORYCLIA [id number] [place] [address] [place] Platelet mean volume (Bld) [Entitic vol] 11.7 fL Normal 9.0-12.7 [facility] Comment on above: Order Comment: Speci men Type: BLOOD SPECIMENOrdering Facility: [facility] Address: [address] [place] [address] Performed By: #### 5 8410-2 ####[facility] LABORATORYCLIA [id number] [place] [address] [place] Platelets (Bld) [#/Vol] 181 10*3/uL Normal 150-400 [facility] Comment on above: Order Comment: Speci men Type: BLOOD SPECIMENOrdering Facility: [facility] Address: [address] [place] [address] Performed By: #### 5 8410-2 ####[facility] LABORATORYCLIA [id number] [place] [address] [place] RBC (Bld) [#/Vol] 3.77 10*6/uL Low 3.90-5.20 [facility] Comment on above: Order Comment: Speci men Type: BLOOD SPECIMENOrdering Facility: [facility] Address: [address] [place] [address] Performed By: #### 5 8410-2 ####[facility] LABORATORYCLIA [id number] [place] [address] [place] WBC (Bld) [#/Vol] 5.34 10*3/uL Normal 3.70-11.00 [facility] Comment on above: Order Comment: Speci men Type: BLOOD SPECIMENOrdering Facility: [facility] Address: [address] [place] [address] Performed By: #### 5 8410-2 ####[facility] LABORATORYCLIA [id number] [place] [address] [place] Magnesium SerPl-mCncon 05-25 Magnesium [Mass/Vol] 1.6 mg/dL Low 1.7-2.3 [facility] Comment on above: Order Comment: Speci men Type: BLOOD SPECIMENOrdering Facility: [facility] Address: [address] [place] [address] Performed By: #### 2 4321-2, 06821-2, 2777-1 ####[facility] LABORATORYCLIA [id number] [place] [address] [place] NUTRITIONon 05-26-2023 NUTRITION Normal [facility]ate [facility] Phosphate [Mass/Vol] 4.5 mg/dL Normal 2.7-4.8 [facility] Comment on above: Order Comment: Speci men Type: BLOOD SPECIMENOrdering Facility: [facility] Address: [address] [place] [address] Performed By: #### 2 4321-2, , 2777 ####[facility] LABORATORYCLIA [id number] [address] [place] XR ABDOMEN 1V SUPINEon 05-25 XR ABDOMEN 1V SUPINE Normal [facility] ANES POSTPROC EVALon 024 ANES POSTPROC EVAL Normal [facility] ANES PRE-OPon 05-25-2023 ANES PRE-OP [facility] HISTORY PHYSICALon HISTORY PHYSICAL Normal [facility] NURSING PROGon 05-25-2023 NURSING PROG Normal [facility] NURSING PROG Normal [facility] Upper GI endoscopyon 024 Upper GI endoscopy Normal [facility] CNPNon 05-24-2023 CNPN Normal [facility] Home Health Recordson 2023 Home Health Records [id number] Normal [facility] Basic metabolic 2000 panelon 05-22-2023 Anion gap [Moles/Vol] 10 mmol/L Normal 9-18 [facility] Comment on above: Order Comment: Speci men Type: BLOOD SPECIMENOrdering Facility: [facility] Address: [address] [place] [address], [place] [address] Performed By: #### 2 4321-2, , 2776-02 ####[facility] LABORATORYCLIA [id number] [place] [address] [place] Calcium [Mass/Vol] 8.9 mg/dL Normal 8.5-10.2 [facility] Comment on above: Order Comment: Speci men Type: BLOOD SPECIMENOrdering Facility: [facility] Address: [address] [place] [id number] Performed By: #### 2 4321-2, , 2776-02 ####[facility] LABORATORYCLIA [id number] [place] [address] [place] Chloride [Moles/Vol] 110 mmol/L High 97-105 [facility] Comment on above: Order Comment: Speci men Type: BLOOD SPECIMENOrdering Facility: [facility] Address: [facility] [place] [address] Performed By: #### 2 4321-2, , 2776-02 ####[facility] LABORATORYCLIA [id number] [place] [address] [place] CO2 [Moles/Vol] 23 mmol/L Normal 22-30 [facility] Comment on above: Order Comment: Speci men Type: BLOOD SPECIMENOrdering Facility: [facility] Address: [address] [place] [id number] Performed By: #### 2 4321-2, , 2776-02 ####[facility] LABORATORYCLIA [id number] [place] [address] [place] Creatinine [Mass/Vol] 0.73 mg/dL Normal 0.58-0.96 [facility] Comment on above: Order Comment: Speci men Type: BLOOD SPECIMENOrdering Facility: [facility] Address: [address] [place] [id number] Performed By: #### 2 4321-2, , 2776-02 ####[facility] LABORATORYCLIA [id number] [place] [address] [place] Creatinine and Glomerular filtration rate.predicted panel (S/P/Bld) 111 mL/min/1.73m??? Normal >=60 [facility] Comment on above: Order Comment: Geraldo marrero Type: BLOOD SPECIMENOrdering Facility: [facility] Address: [address] [place] [address] Result Comment: Jessica mated Glomerular Filtration Rate [...] Performed By: #### 2 4321-2, , 2776-02 ####[facility] LABORATORYCLIA [id number] [place] [address] [place] Glucose [Mass/Vol] 73 mg/dL Low 74-99 [facility] Comment on above: Order Comment: Geraldo marrero Type: BLOOD SPECIMENOrdering Facility: [facility] Address: [address] [place] [address] Result Comment: The [place] [employer] (ADA) provides guidance for cutoff [...] Standards of Medical Care in Diabetes 2016, [place] [employer]. Diabetes Care. 2016.39(Suppl 1). Performed By: #### 2 4321-2, , 2776-02 ####[facility] LABORATORYCLIA [id number] [place] [address] [place] Potassium [Moles/Vol] 3.7 mmol/L Normal 3.7-5.1 [facility] Comment on above: Order Comment: Speci men Type: BLOOD SPECIMENOrdering Facility: [facility] Address: [address] [place], [place] [address] Performed By: #### 2 4321-2, , 2776-02 ####[facility] LABORATORYCLIA [id number] [place] [address] [place] Sodium [Moles/Vol] 143 mmol/L Normal 136-144 [facility] Comment on above: Order Comment: Speci men Type: BLOOD SPECIMENOrdering Facility: [facility] Address: [address] [place], [place] [address] Performed By: #### 2 4321-2, , 2776-02 ####[facility] LABORATORYCLIA [id number] [place] [address] [place] Urea nitrogen [Mass/Vol] 6 mg/dL Low 7-21 [facility] Comment on above: Order Comment: Speci men Type: BLOOD SPECIMENOrdering Facility: [facility] Address: [address] [place] [address] Performed By: #### 2 4321-2, , 2776-02 ####[facility] LABORATORYCLIA [id number] [place] [address] [facility] [place] CASE MANAGEMon 05-22-2023 CASE MANAGEM Normal [facility] CNDSon 05-22-2023 CNDS [facility] Magnesium [facility]Pl[facility] Magnesium [Mass/Vol] 1.9 mg/dL Normal 1.7-2.3 [facility] Comment on above: Order Comment: Speci men Type: BLOOD SPECIMENOrdering Facility: [facility] Address: [address] [place], [place] [address] Performed By: #### 2 4321-2, , 2776-02 ####[facility] LABORATORYCLIA [id number] [place] [address] [place] NUTRITIONon 05-22-2023 NUTRITION Normal [facility] Phosphate SerPl-mCncon 05-21 Phosphate [Mass/Vol] 4.3 mg/dL Normal 2.7-4.8 [facility] Comment on above: Order Comment: Speci men Type: BLOOD SPECIMENOrdering Facility: [facility] Address: [address] [place] [address] [place] [address] Performed By: #### 2 4321-2, , 2776-02 ####[facility] LABORATORYCLIA [id number] [place] [address] [place] Basic metabolic 2000 panelon 05-21-2023 Anion gap [Moles/Vol] 12 mmol/L Normal 9-18 [facility] Comment on above: Order Comment: Speci men Type: BLOOD SPECIMENOrdering Facility: [facility] Address: [address] [place] [address] Performed By: #### 2 4321-2, , 2776-02 ####[facility] LABORATORYCLIA [id number] [place] [address] [place] Calcium [Mass/Vol] 8.8 mg/dL Normal 8.5-10.2 [facility] Comment on above: Order Comment: Speci men Type: BLOOD SPECIMENOrdering Facility: [facility] Address: [address] [place] [address] Performed By: #### 2 4321-2, , 2776-02 ####[facility] LABORATORYCLIA [id number] [place] [address] [place] Chloride [Moles/Vol] 107 mmol/L High 97-105 [facility] Comment on above: Order Comment: Speci men Type: BLOOD SPECIMENOrdering Facility: [facility] Address: [address] [place] [address] Performed By: #### 2 4321-2, , 2776-02 ####[facility] LABORATORYCLIA [id number] [place] [address] [place] CO2 [Moles/Vol] 19 mmol/L Low 22-30 [facility] Comment on above: Order Comment: Speci men Type: BLOOD SPECIMENOrdering Facility: [facility] Address: [address] [place] [address] Performed By: #### 2 4321-2, 14515-8, 2776-02 ####[facility] LABORATORYCLIA [id number] [place] [address] [place] [facility] Creatinine [Mass/Vol] 0.72 mg/dL Normal 0.58-0.96 [facility] Comment on above: Order Comment: Geraldo marrero Type: BLOOD SPECIMENOrdering Facility: [facility] Address: [address] [place] [address] Performed By: #### 2 4321-2, , 2776-02 ####[facility] LABORATORYCLIA [id number] [place] [address] [facility] Creatinine and Glomerular filtration rate.predicted panel (S/P/Bld) 113 mL/min/1.73m??? Normal >=60 [facility] Comment on above: Order Comment: Geraldo marrero Type: BLOOD SPECIMENOrdering Facility: [facility] Address: [address] [place] [address] Result Comment: Jessica mated Glomerular Filtration Rate [...] actual GFR. Performed By: #### 2 4321-2, 93456-3, 2776-02 ####[facility] LABORATORYCLIA [id number] [place] [address] [place] Glucose [Mass/Vol] 85 mg/dL Normal 74-99 [facility] Comment on above: Order Comment: Speci men Type: BLOOD SPECIMENOrdering Facility: [facility] Address: [address] [place] [address] Result Comment: The [place] Diabetes Association (ADA) provides guidance for cutoff [...] Standards of Medical Care in Diabetes 2016, [place] [employer]. Diabetes Care. 2016.39(Suppl 1). Performed By: #### 2 4321-2, , 2776-02 ####[facility] LABORATORYCLIA [id number] [place] [address] [place] Potassium [Moles/Vol] 3.8 mmol/L Normal 3.7-5.1 [facility] Comment on above: Order Comment: Geraldo marrero Type: BLOOD SPECIMENOrdering Facility: [facility] Address: [address] [place], [place] [address] Performed By: #### 2 4321-2, , 2776-02 ####[facility] LABORATORYCLIA [id number] [place] [address] [place] Sodium [Moles/Vol] 138 mmol/L Normal 136-144 [facility] Comment on above: Order Comment: Geraldo marrero Type: BLOOD SPECIMENOrdering Facility: [facility] Address: [address] [place] [address] Performed By: #### 2 4321-2, , 2776-02 ####[facility] LABORATORYCLIA [id number] [place] [address] [place] Urea nitrogen [Mass/Vol] 5 mg/dL Low 7-21 [facility] Comment on above: Order Comment: Geraldo marrero Type: BLOOD SPECIMENOrdering Facility: [facility] Address: [address] [place] [address] Performed By: #### 2 4321-2, , 2776-02 ####[facility] LABORATORYCLIA [id number] [place] [address] [place] CASE MANAGEMon 05-21-2023 CASE MANAGEM Normal [facility] CASE MANAGEM Normal [facility] CASE MGT INIT ASSESon 2023 CASE MGT INIT ASS Normal [facility] Magnesium SerPl-ncon 05-20 Magnesium [Mass/Vol] 1.9 mg/dL Normal 1.7-2.3 [facility] Comment on above: Order Comment: Speci men Type: BLOOD SPECIMENOrdering Facility: [facility] Address: [address] [place], [place] [address] Performed By: #### 2 4321-2, 16104-4, 2776-1 ####[facility] LABORATORYCLIA [id number] [place] [address] [place] NURSING PROGon 05-21-2023 NURSING PROG Normal [facility] Phosphate [Mass/Vol] 4.1 mg/dL Normal 2.7-4.8 [facility] Comment on above: Order Comment: Speci men Type: BLOOD SPECIMENOrdering Facility: [facility] Address: [address] [place] [address] Performed By: #### 2 4321-2, , 277- ####[facility] LABORATORYCLIA [id number] [place] [id number] [place] ALLIED HEALTHon 05-20-2023 ALLIED HEALTH Normal [facility] ANES POSTPROC EVALon 024 ANES POSTPROC EVAL Normal [facility] ANES PRE-OPon 05-20-2023 ANES PRE-OP Normal [facility] Bacteria Ur Culton Bacteria identified Cx Nom (U) ORGANISM ID: 1 10,000 -<50,000 CFU/ml Normal urogenital annika Normal [facility] Comment on above: Performed By: #### 6 30-4 ####[facility] LAB[facility] [id number] [place] [id number] [place] Basic metabolic 2000 panelon 05-20-2023 Anion gap [Moles/Vol] 12 mmol/L Normal 9-18 [facility] Comment on above: Order Comment: Speci men Type: BLOOD SPECIMENOrdering Facility: [facility] Address: [address] [place] [address], [place] [address] Performed By: #### 2 4321-2, , 2776-02 ####[facility] LABORATORYCLIA [id number] [place] [address] [place] Calcium [Mass/Vol] 8.8 mg/dL Normal 8.5-10.2 [facility] Comment on above: Order Comment: Speci men Type: BLOOD SPECIMENOrdering Facility: [facility] Address: [address] [place] [address] Performed By: #### 2 4321-2, , 2776-02 ####[facility] LABORATORYCLIA [id number] [place] [id number] [place] Chloride [Moles/Vol] 109 mmol/L High 97-105 [facility] Comment on above: Order Comment: Speci men Type: BLOOD SPECIMENOrdering Facility: [facility] Address: [facility] [place] [address] Performed By: #### 2 4321-2, , 2776-02 ####[facility] LABORATORYCLIA [id number] [place] [id number] [place] [place] CO2 [Moles/Vol] 21 mmol/L Low 22-30 [facility] Comment on above: Order Comment: Speci men Type: BLOOD SPECIMENOrdering Facility: [facility] Address: [facility] [place] [id number] Performed By: #### 2 4321-2, , 2776-02 ####[facility] LABORATORYCLIA [id number] [place] [address] [place] Creatinine [Mass/Vol] 0.75 mg/dL Normal 0.58-0.96 [facility] Comment on above: Order Comment: Speci men Type: BLOOD SPECIMENOrdering Facility: [facility] Address: [address] [place] [id number] Performed By: #### 2 4321-2, , 2776-02 ####[facility] LABORATORYCLIA [id number] [place] [address] [place] Creatinine and Glomerular filtration rate.predicted panel (S/P/Bld) 107 mL/min/1.73m??? Normal >=60 [facility] Comment on above: Order Comment: Geraldo marrero Type: BLOOD SPECIMENOrdering Facility: [facility] Address: [address] [place] [address] Result Comment: Jessica mated Glomerular Filtration Rate [...] Performed By: #### 2 4321-2, , 2776-02 ####[facility] LABORATORYCLIA [id number] [place] [address] [place] Glucose [Mass/Vol] 91 mg/dL Normal 74-99 [facility] Comment on above: Order Comment: Geraldo marrero Type: BLOOD SPECIMENOrdering Facility: [facility] Address: [address] [place] [address] Result Comment: The [place] Diabetes [employer] (ADA) provides guidance for cutoff [...] Standards of Medical Care in Diabetes 2016, [place] [employer]. Diabetes Care. 2016.39(Suppl 1). Performed By: #### 2 4321-2, , 2776-02 ####[facility] LABORATORYCLIA [id number] [place] [address] [place] Potassium [Moles/Vol] 4.1 mmol/L Normal 3.7-5.1 [facility] Comment on above: Order Comment: Speci men Type: BLOOD SPECIMENOrdering Facility: [facility] Address: [address] [place] [address] Performed By: #### 2 4321-2, , 2776-02 ####[facility] LABORATORYCLIA [id number] [place] [address] [place] Sodium [Moles/Vol] 142 mmol/L Normal 136-144 [facility] Comment on above: Order Comment: Speci men Type: BLOOD SPECIMENOrdering Facility: [facility] Address: [address] [place] [address] Performed By: #### 2 4321-2, , 2776-02 ####[facility] LABORATORYCLIA [id number] [place] [address] [place] Urea nitrogen [Mass/Vol] 6 mg/dL Low 7-21 [facility] Comment on above: Order Comment: Speci men Type: BLOOD SPECIMENOrdering Facility: [facility] Address: [address] [place] [address] Performed By: #### 2 4321-2, , 2776-02 ####[facility] LABORATORYCLIA [id number] [place] [address] [place] CBC panel Auto (Bld)on 05-19 Erythrocyte distribution width (RBC) [Ratio] 12.9 % Normal 11.5-15.0 [facility] Comment on above: Order Comment: Speci men Type: BLOOD SPECIMENOrdering Facility: [facility] Address: [address] [place] [address] Performed By: #### 5 8410-2 ####[facility] LABORATORYCLIA [id number] [place] [address] [place] Hematocrit (Bld) [Volume fraction] 36.0 % Normal 36.0-46.0 [facility] Comment on above: Order Comment: Speci men Type: BLOOD SPECIMENOrdering Facility: [facility] Address: [address] [place] [address] Performed By: #### 5 8410-2 ####[facility] LABORATORYCLIA [id number] [place] [address] [place] Hemoglobin (Bld) [Mass/Vol] 12.4 g/dL Normal 11.5-15.5 [facility] Comment on above: Order Comment: Speci men Type: BLOOD SPECIMENOrdering Facility: [facility] Address: [address] [place] [address] Performed By: #### 5 8410-2 ####[facility] LABORATORYCLIA [id number] [address] [place] MCH (RBC) [Entitic mass] 30.8 pg Normal 26.0-34.0 [facility] Comment on above: Order Comment: Speci men Type: BLOOD SPECIMENOrdering Facility: [facility] Address: [address] [place] [address] Performed By: #### 5 8410-2 ####[facility] LABORATORYCLIA [id number] [address] STATES [facility] MCHC (RBC) [Mass/Vol] 34.4 g/dL Normal 30.5-36.0 [facility] Comment on above: Order Comment: Speci men Type: BLOOD SPECIMENOrdering Facility: [facility] Address: [address] [place] [address] Performed By: #### 5 8410-2 ####[facility] LABORATORYCLIA [id number] [address] [place] MCV (RBC) [Entitic vol] 89.6 fL Normal 80.0-100.0 [facility] Comment on above: Order Comment: Speci men Type: BLOOD SPECIMENOrdering Facility: [facility] Address: [address] [place] [address] Performed By: #### 5 8410-2 ####[facility] LABORATORYCLIA [id number] [address] Nucleated RBC (Bld) [#/Vol] 10*3/uL Normal <0.01 [facility] Comment on above: Order Comment: Speci men Type: BLOOD SPECIMENOrdering Facility: [facility] Address: [address] [place] [address] Performed By: #### 5 8410-2 ####[facility] LABORATORYCLIA [id number] [place] [address] [place] Platelet mean volume (Bld) [Entitic vol] 11.4 fL Normal 9.0-12.7 [facility] Comment on above: Order Comment: Speci men Type: BLOOD SPECIMENOrdering Facility: [facility] Address: [address] [place] [address] Performed By: #### 5 8410-2 ####[facility] LABORATORYCLIA [id number] [place] [address] [place] Platelets (Bld) [#/Vol] 176 10*3/uL Normal 150-400 [facility] Comment on above: Order Comment: Speci men Type: BLOOD SPECIMENOrdering Facility: [facility] Address: [address] [place] [address] Performed By: #### 5 8410-2 ####[facility] LABORATORYCLIA [id number] [place] [address] [place] RBC (Bld) [#/Vol] 4.02 10*6/uL Normal 3.90-5.20 [facility] Comment on above: Order Comment: Speci men Type: BLOOD SPECIMENOrdering Facility: [facility] Address: [address] [place] [address] Performed By: #### 5 8410-2 ####[facility] LABORATORYCLIA [id number] [place] [address] [place] WBC (Bld) [#/Vol] 2.51 10*3/uL Low 3.70-11.00 [facility] Comment on above: Order Comment: Speci men Type: BLOOD SPECIMENOrdering Facility: [facility] Address: [address] [place] [address] Performed By: #### 5 8410-2 ####[facility] LABORATORYCLIA [id number] [place] [address] [place] HISTORY PHYSICALon 4 HISTORY PHYSICAL Normal [facility] Magnesium SerPl-mCncon 05-19 Magnesium [Mass/Vol] 1.9 mg/dL Normal 1.7-2.3 [facility] Comment on above: Order Comment: Speci men Type: BLOOD SPECIMENOrdering Facility: [facility] Address: [address] [place] [address] Performed By: #### 2 4321-2, 63215-9, 2776-1 ####[facility] LABORATORYCLIA [id number] [place] [address] [place] NURSING PROGon 05-20-2023 NURSING PROG Normal [facility] NURSING PROG Normal [facility] NURSING PROG Normal [facility] NUTRITIONon 05-20-2023 NUTRITION Normal [facility] Phosphate SerPl-mCncon 05-19 Phosphate [Mass/Vol] 3.8 mg/dL Normal 2.7-4.8 [facility] Comment on above: Order Comment: Speci men Type: BLOOD SPECIMENOrdering Facility: [facility] Address: [address] [place] [address] Performed By: #### 2 4321-2, , 2776- ####[facility] LABORATORYCLIA [id number] [place] [address] [place] Upper GI endoscopyon 024 Upper GI endoscopy Normal [facility] XR ESOPHAGRAMon 05-20-2023 XR ESOPHAGRAM Normal [facility] Basic metabolic 2000 panelon 05-19-2023 Anion gap [Moles/Vol] 16 mmol/L Normal 9-18 [facility] Comment on above: Order Comment: Speci men Type: BLOOD SPECIMENOrdering Facility: [facility] Address: [address] [place] [address] Performed By: #### 2 4321-2 ####[facility] LABORATORYCLIA [id number] [place] [address] [place] Calcium [Mass/Vol] 8.4 mg/dL Low 8.5-10.2 [facility] Comment on above: Order Comment: Speci men Type: BLOOD SPECIMENOrdering Facility: [facility] Address: [address] [place] [address] Performed By: #### 2 4321-2 ####[facility]ORATORYCLIA [id number] [place] [address] [place] Chloride [Moles/Vol] 104 mmol/L Normal 97-105 [facility] Comment on above: Order Comment: Speci men Type: BLOOD SPECIMENOrdering Facility: [facility] Address: [address] [place] [address] Performed By: #### 2 4321-2 ####[facility]ORATORYCLIA [id number] [place] [address] [place] CO2 [Moles/Vol] 15 mmol/L Low 22-30 [facility] Comment on above: Order Comment: Speci men Type: BLOOD SPECIMENOrdering Facility: [facility] Address: [address] [place] [address] Performed By: #### 2 4321-2 ####[facility]ORATORYCLIA [id number] [place] [address] [place] Creatinine [Mass/Vol] 0.71 mg/dL Normal 0.58-0.96 [facility] Comment on above: Order Comment: Speci men Type: BLOOD SPECIMENOrdering Facility: [facility] Address: [address] [place] [address] Performed By: #### 2 4321-2 ####[facility]ORATORYCLIA [id number] [place] [address] [facility] Creatinine and Glomerular filtration rate.predicted panel (S/P/Bld) 115 mL/min/1.73m??? Normal >=60 [facility] Comment on above: Order Comment: Speci men Type: BLOOD SPECIMENOrdering Facility: [facility] Address: [address] [place] [address] Result Comment: Jessica mated Glomerular Filtration Rate [...] actual GFR. Performed By: #### 2 4321-2 ####[facility]ORATORYCLIA [id number] [place] [address] [place] Glucose [Mass/Vol] 73 mg/dL Low 74-99 [facility] Comment on above: Order Comment: Geraldo elida Type: BLOOD SPECIMENOrdering Facility: [facility] Address: [address] [place] [address] Result Comment: The [place] [employer] (ADA) provides guidance for cutoff [...] Standards of Medical Care in Diabetes 2016, [place] [employer]. Diabetes Care. 2016.39(Suppl 1). Performed By: #### 2 4321-2 ####[facility] LABORATORYCLIA [id number] [place] [address] [place] Potassium [Moles/Vol] 4.1 mmol/L Normal 3.7-5.1 [facility] Comment on above: Order Comment: Geraldo marrero Type: BLOOD SPECIMENOrdering Facility: [facility] Address: [address] [place] [address] Performed By: #### 2 4321-2 ####[facility] LABORATORYCLIA [id number] [place] [address] [place] Sodium [Moles/Vol] 135 mmol/L Low 136-144 [facility] Comment on above: Order Comment: Geraldo elida Type: BLOOD SPECIMENOrdering Facility: [facility] Address: [address] [place] [address] Performed By: #### 2 4321-2 ####[facility] LABORATORYCLIA [id number] [place] [address] [place] Urea nitrogen [Mass/Vol] 8 mg/dL Normal 7-21 [facility] Comment on above: Order Comment: Speci men Type: BLOOD SPECIMENOrdering Facility: [facility] Address: [address] [place] [address] Performed By: #### 2 4321-2 ####[facility] LABORATORYCLIA [id number] [place] [address] [place] CBC panel Auto (Bld)on 05-18 Erythrocyte distribution width (RBC) [Ratio] 12.6 % Normal 11.5-15.0 [facility] Comment on above: Order Comment: Speci men Type: BLOOD SPECIMENOrdering Facility: [facility] Address: [address] [place] [address] Performed By: #### 5 8410-2 ####[facility] LABORATORYCLIA [id number] [address] [place] Hematocrit (Bld) [Volume fraction] 33.3 % Low 36.0-46.0 [facility] Comment on above: Order Comment: Speci men Type: BLOOD SPECIMENOrdering Facility: [facility] Address: [address] [place] [address] Performed By: #### 5 8410-2 ####[facility] LABORATORYCLIA [id number] [place] [address] [place] Hemoglobin (Bld) [Mass/Vol] 11.2 g/dL Low 11.5-15.5 [facility] Comment on above: Order Comment: Speci men Type: BLOOD SPECIMENOrdering Facility: [facility] Address: [address] [place] [address] Performed By: #### 5 8410-2 ####[facility] LABORATORYCLIA [id number] [place] [address] [place] MCH (RBC) [Entitic mass] 30.5 pg Normal 26.0-34.0 [facility] Comment on above: Order Comment: Speci men Type: BLOOD SPECIMENOrdering Facility: [facility] Address: [address] [place] [address] Performed By: #### 5 8410-2 ####[facility] LABORATORYCLIA [id number] [place] [address] [place] MCHC (RBC) [Mass/Vol] 33.6 g/dL Normal 30.5-36.0 [facility] Comment on above: Order Comment: Speci men Type: BLOOD SPECIMENOrdering Facility: [facility] Address: [address] [place] [address] Performed By: #### 5 8410-2 ####[facility] LABORATORYCLIA [id number] [place] [address] [place] MCV (RBC) [Entitic vol] 90.7 fL Normal 80.0-100.0 [facility] Comment on above: Order Comment: Speci men Type: BLOOD SPECIMENOrdering Facility: [facility] Address: [address] [place] [address] Performed By: #### 5 8410-2 ####[facility] LABORATORYCLIA [id number] [place] [address] [place] Nucleated RBC (Bld) [#/Vol] 10*3/uL Normal <0.01 [facility] Comment on above: Order Comment: Speci men Type: BLOOD SPECIMENOrdering Facility: [facility] Address: [address] [place] [address] Performed By: #### 5 8410-2 ####[facility] LABORATORYCLIA [id number] [place] [address] [place] Platelet mean volume (Bld) [Entitic vol] 11.4 fL Normal 9.0-12.7 [facility] Comment on above: Order Comment: Speci men Type: BLOOD SPECIMENOrdering Facility: [facility] Address: [address] [place] [address] Performed By: #### 5 8410-2 ####[facility] LABORATORYCLIA [id number] [address] [place] Platelets (Bld) [#/Vol] 150 10*3/uL Normal 150-400 [facility] Comment on above: Order Comment: Speci men Type: BLOOD SPECIMENOrdering Facility: [facility] Address: [address] [place] [address] Performed By: #### 5 8410-2 ####[facility] LABORATORYCLIA [id number] [place] [address] [place] RBC (Bld) [#/Vol] 3.67 10*6/uL Low 3.90-5.20 [facility] Comment on above: Order Comment: Speci men Type: BLOOD SPECIMENOrdering Facility: [facility] Address: [address] [place] [address] Performed By: #### 5 8410-2 ####[facility] LABORATORYCLIA [id number] [place] [address] [place] WBC (Bld) [#/Vol] 3.57 10*3/uL Low 3.70-11.00 [facility] Comment on above: Order Comment: Speci men Type: BLOOD SPECIMENOrdering Facility: [facility] Address: [address] [place] [address] Performed By: #### 5 8410-2 ####[facility] LABORATORYCLIA [id number] [place] [address] [place] NURSING PROGon 05-19-2023 NURSING PROG Normal [facility] NURSING PROG Normal [facility] NURSING PROG Normal [facility] NUTRITIONon 05-19-2023 NUTRITION Normal [facility] Urinalysis complete panel (U )on 05-19-2023 Bacteria LM.HPF (Urine sed) [#/Area] Few Abnormal None Seen [facility] Comment on above: Order Comment: Speci men Type: URINE SPECIMENOrdering Facility: [facility] Address: [address] [place] [address] Performed By: #### 2 4356-8 ####[facility] LABORATORYCLIA [id number] [place] [address] [place] Bilirubin Ql (U) Negative Normal Negative [facility] Comment on above: Order Comment: Speci men Type: URINE SPECIMENOrdering Facility: [facility] Address: [address] [place] [address] Performed By: #### 2 4356-8 ####[facility] LABORATORYCLIA [id number] [place] [address] [place] Clarity (Unsp spec) Turbid Abnormal Clear [facility] Comment on above: Order Comment: Speci men Type: URINE SPECIMENOrdering Facility: [facility] Address: [address] [place] [address] Performed By: #### 2 4356-8 ####[facility] LABORATORYCLIA [id number] [place] [address] [place] Color (U) Yellow Normal Yellow [facility] Comment on above: Order Comment: Speci men Type: URINE SPECIMENOrdering Facility: [facility] Address: [address] [place] [address] Performed By: #### 2 4356-8 ####[facility] LABORATORYCLIA [id number] [place] [address] [place] Epithelial cells LM.HPF (Urine sed) [#/Area] Moderate Normal [facility] Comment on above: Order Comment: Speci men Type: URINE SPECIMENOrdering Facility: [facility] Address: [address] [place] [address] Performed By: #### 2 4356-8 ####[facility] LABORATORYCLIA [id number] [place] [address] [place] [facility] Glucose Test strip (U) [Mass/Vol] Negative Normal Trace, Negative [facility] Comment on above: Order Comment: Speci men Type: URINE SPECIMENOrdering Facility: [facility] Address: [address] [place] [address] Performed By: #### 2 4356-8 ####[facility] LABORATORYCLIA [id number] [place] [address] [place] Hemoglobin Ql (U) Trace Normal Negative, Trace [facility] Comment on above: Order Comment: Speci men Type: URINE SPECIMENOrdering Facility: [facility] Address: [address] [place] [address] Performed By: #### 2 4356-8 ####[facility] LABORATORYCLIA [id number] [place] [address] [place] Ketones Ql (U) 2+ Abnormal Negative, Trace [facility] Comment on above: Order Comment: Speci men Type: URINE SPECIMENOrdering Facility: [facility] Address: [address] [place] [address] Performed By: #### 2 4356-8 ####[facility]ORATORYCLIA [id number] [place] [address] [place] Leukocyte esterase Test strip Ql (U) 500 Patito/uL Abnormal Negative, 25 Patito/uL [facility] Comment on above: Order Comment: Speci men Type: URINE SPECIMENOrdering Facility: [facility] Address: [address] [place] [address] Performed By: #### 2 4356-8 ####[facility]ORATORYCLIA [id number] [place] [address] [place] Nitrite Ql (U) Negative Normal Negative [facility] Comment on above: Order Comment: Speci men Type: URINE SPECIMENOrdering Facility: [facility] Address: [address] [place] [address] Performed By: #### 2 4356-8 ####[facility]ORATORYCLIA [id number] [place] [address] [place] pH (U) 6.0 [pH] Normal 5.0-8.0 [facility] Comment on above: Order Comment: Speci men Type: URINE SPECIMENOrdering Facility: [facility] Address: [address] [place] [address] Performed By: #### 2 4356-8 ####[facility] LABORATORYCLIA [id number] [place] [address] [place] Protein (U) [Mass/Vol] Negative Normal Trace, Negative [facility] Comment on above: Order Comment: Speci men Type: URINE SPECIMENOrdering Facility: [facility] Address: [address] [place] [address] Performed By: #### 2 4356-8 ####[facility] LABORATORYCLIA [id number] [place] [address] [place] RBC LM.HPF (Urine sed) [#/Area] /[HPF] Abnormal 0-3 /HPF [facility] Comment on above: Order Comment: Speci men Type: URINE SPECIMENOrdering Facility: [facility] Address: [address] [place] [address] Performed By: #### 2 4356-8 ####[facility] LABORATORYCLIA [id number] [address] Specific gravity (U) [Rel density] 1.012 Normal 1.005-1.030 [facility] Comment on above: Order Comment: Speci men Type: URINE SPECIMENOrdering Facility: [facility] Address: [address] [place] [address] Performed By: #### 2 4356-8 ####[facility] LABORATORYCLIA [id number] [address] [place] Urobilinogen Ql (U) Normal Normal Normal [facility] Comment on above: Order Comment: Speci men Type: URINE SPECIMENOrdering Facility: [facility] Address: [address] [place] [address] Performed By: #### 2 4356-8 ####[facility]ORATORYCLIA [id number] [address] [place] WBC LM.HPF (Urine sed) [#/Area] /[HPF] Abnormal 0-5 /HPF [facility] Comment on above: Order Comment: Speci men Type: URINE SPECIMENOrdering Facility: [facility] Address: [address] [place] [address] Performed By: #### 2 4356-8 ####[facility] LABORATORYCLIA [id number] [address] .Interpretation:on 4 HCV Ab IA Ql Comment Invalid Interpretation Code [facility] Comment on above: Result Comment: Not infected with HCV unless early or acute infection issuspected (which may be delayed in an immunocompromisedindividual), or other evidence exists to indicate HCV infection.Performed at: [facility]irq[facility] [place] [address] [id number] PhD Cami Neri Performed By: #### 9 [id number], [id number], 6389015, 6281349, [id number], 7630151, [id number], 3592775, 28903354 ####[facility] [address] [place] [address] 25(OH)D3 Alka-Wing 2023 25-hydroxyvitamin D3 [Mass/Vol] 36.1 ng/mL Normal 31.0-80.0 [facility] Comment on above: Order Comment: Speci men Type: BLOOD SPECIMENOrdering Facility: [facility] Address: [address] [place] [address] Performed By: #### 1 989-3 ####[facility] LABCL[facility] [id number] [place] [address] [place] [facility] Acute Hepatitis A B C Panelo n 05-18-2023 HAV IgM IA Ql Negative Invalid Interpretation Code Negative [facility] Comment on above: Performed By: #### 9 [id number], 10997405, 3496389, 8966149, [id number], 0078003, [id number], 9665541, 07545148 ####[facility] [id number] [place] [address] HBV core IgM IA Ql Negative Invalid Interpretation Code Negative [facility] Comment on above: Performed By: #### 9 [id number], 89540984, 3668232, 8520649, [id number], 8791351, [id number], 1131913, [id number] ####[facility] [id number] [place] [address] HBV surface Ag IA Ql Negative Invalid Interpretation Code Negative [facility] Comment on above: Performed By: #### 9 [id number], [id number], [id number], [id number], [id number], [id number], [id number], [id number] ####[facility] [address] [place] [address] HCV IgG IA Ql Non-Reactive Invalid Interpretation Code Non Reactive [facility] Comment on above: Result Comment: Perf ormed at: [facility] [id number] [place], [place] [id number] PhD Cami Neri Performed By: #### 9 [id number], [id number], 1620475, [id number], 6253107, [id number], 6193977, [id number] ####[facility] [address] [place] [address] CBC W Auto Differential pane l (Bld)on 05-18-2023 Basophils (Bld) [#/Vol] 0.03 10*3/uL Normal <0.11 [facility] Comment on above: Order Comment: Speci men Type: BLOOD SPECIMENOrdering Facility: [facility] Address: [address] [place] [address] Performed By: #### 5 7021-8 ####[facility] LABORATORYCLIA [id number] [place] [address] [place] Basophils/100 WBC (Bld) 0.6 % Normal [facility] Comment on above: Order Comment: Speci men Type: BLOOD SPECIMENOrdering Facility: [facility] Address: [address] [place] [address] Performed By: #### 5 7021-8 ####[facility] LABORATORYCLIA [id number] [place] [address] [place] Differential cell count method Nom (Bld) Auto Normal [facility] Comment on above: Order Comment: Speci men Type: BLOOD SPECIMENOrdering Facility: [facility] Address: [address] [place] [address] Performed By: #### 5 7021-8 ####[facility] LABORATORYCLIA [id number] [place] [address] [place] Eosinophils (Bld) [#/Vol] 0.06 10*3/uL Normal <0.46 [facility] Comment on above: Order Comment: Speci men Type: BLOOD SPECIMENOrdering Facility: [facility] Address: [address] [place] [address] Performed By: #### 5 7021-8 ####[facility] LABORATORYCLIA [id number] [place] [id number] [place] Eosinophils/100 WBC (Bld) 1.3 % Normal [facility] Comment on above: Order Comment: Speci men Type: BLOOD SPECIMENOrdering Facility: [facility] Address: [address] [place] [address] Performed By: #### 5 7021-8 ####[facility] LABORATORYCLIA [id number] [place] [address] [place] Erythrocyte distribution width (RBC) [Ratio] 13.1 % Normal 11.5-15.0 [facility] Comment on above: Order Comment: Speci men Type: BLOOD SPECIMENOrdering Facility: [facility] Address: [address] [place] [address] Performed By: #### 5 7021-8 ####[facility] LABORATORYCLIA [id number] [place] [address] [place] Hematocrit (Bld) [Volume fraction] 43.5 % Normal 36.0-46.0 [facility] Comment on above: Order Comment: Speci men Type: BLOOD SPECIMENOrdering Facility: [facility] Address: [address] [place] [address] Performed By: #### 5 7021-8 ####[facility] LABORATORYCLIA [id number] [address] [place] Hemoglobin (Bld) [Mass/Vol] 14.8 g/dL Normal 11.5-15.5 [facility] Comment on above: Order Comment: Speci men Type: BLOOD SPECIMENOrdering Facility: [facility] Address: [address] [place] [address] Performed By: #### 5 7021-8 ####[facility] LABORATORYCLIA [id number] [address] [place] Immature granulocytes (Bld) [#/Vol] 10*3/uL Normal <0.10 [facility] Comment on above: Order Comment: Speci men Type: BLOOD SPECIMENOrdering Facility: [facility] Address: [address] [place] [address] Performed By: #### 5 7021-8 ####[facility] LABORATORYCLIA [id number] [place] [id number] [place] Immature granulocytes/100 WBC (Bld) 0.2 % Normal [facility] Comment on above: Order Comment: Speci men Type: BLOOD SPECIMENOrdering Facility: [facility] Address: [address] [place] [address] Performed By: #### 5 7021-8 ####[facility] LABORATORYCLIA [id number] [place] [address] [place] Lymphocytes (Bld) [#/Vol] 1.27 10*3/uL Normal 1.00-4.00 [facility] Comment on above: Order Comment: Speci men Type: BLOOD SPECIMENOrdering Facility: [facility] Address: [address] [place] [address] Performed By: #### 5 7021-8 ####[facility] LABORATORYCLIA [id number] [address] [place] Lymphocytes/100 WBC (Bld) 26.5 % Normal [facility] Comment on above: Order Comment: Speci men Type: BLOOD SPECIMENOrdering Facility: [facility] Address: [address] [place] [address] Performed By: #### 5 7021-8 ####[facility] LABORATORYCLIA [id number] [place] [id number] [place] MCH (RBC) [Entitic mass] 30.4 pg Normal 26.0-34.0 [facility] Comment on above: Order Comment: Speci men Type: BLOOD SPECIMENOrdering Facility: [facility] Address: [address] [place] [address] Performed By: #### 5 7021-8 ####[facility] LABORATORYCLIA [id number] [address] [place] MCHC (RBC) [Mass/Vol] 34.0 g/dL Normal 30.5-36.0 [facility] Comment on above: Order Comment: Speci men Type: BLOOD SPECIMENOrdering Facility: [facility] Address: [address] [place] [address] Performed By: #### 5 7021-8 ####[facility] LABORATORYCLIA [id number] [place] [id number] [place] MCV (RBC) [Entitic vol] 89.3 fL Normal 80.0-100.0 [facility] Comment on above: Order Comment: Speci men Type: BLOOD SPECIMENOrdering Facility: [facility] Address: [address] [place] [address] Performed By: #### 5 7021-8 ####[facility] LABORATORYCLIA [id number] [place] [id number] [place] Monocytes (Bld) [#/Vol] 0.26 10*3/uL Normal <0.87 [facility] Comment on above: Order Comment: Speci men Type: BLOOD SPECIMENOrdering Facility: [facility] Address: [address] [place] [address] Performed By: #### 5 7021-8 ####[facility] LABORATORYCLIA [id number] [place] [address] [place] Monocytes/100 WBC (Bld) 5.4 % Normal [facility] Comment on above: Order Comment: Speci men Type: BLOOD SPECIMENOrdering Facility: [facility] Address: [address] [place] [address] Performed By: #### 5 7021-8 ####[facility] LABORATORYCLIA [id number] [place] [id number] [place] Neutrophils (Bld) [#/Vol] 3.16 10*3/uL Normal 1.45-7.50 [facility] Comment on above: Order Comment: Speci men Type: BLOOD SPECIMENOrdering Facility: [facility] Address: [address] [place] [address] Performed By: #### 5 7021-8 ####[facility] LABORATORYCLIA [id number] [place] [address] [place] Neutrophils/100 WBC (Bld) 66.0 % Normal [facility] Comment on above: Order Comment: Speci men Type: BLOOD SPECIMENOrdering Facility: [facility] Address: [address] [place] [address] Performed By: #### 5 7021-8 ####[facility] LABORATORYCLIA [id number] [place] [id number] [place] Nucleated RBC (Bld) [#/Vol] 10*3/uL Normal <0.01 [facility] Comment on above: Order Comment: Speci men Type: BLOOD SPECIMENOrdering Facility: [facility] Address: [address] [place] [address] Performed By: #### 5 7021-8 ####[facility] LABORATORYCLIA [id number] [place] [address] [place] Nucleated RBC/100 WBC (Bld) [Ratio] 0.0 /100 WBC Normal [facility] Comment on above: Order Comment: Speci men Type: BLOOD SPECIMENOrdering Facility: [facility] Address: [address] [place] [address] Performed By: #### 5 7021-8 ####[facility] LABORATORYCLIA [id number] [place] [address] [place] Platelet mean volume (Bld) [Entitic vol] 11.8 fL Normal 9.0-12.7 [facility] Comment on above: Order Comment: Speci men Type: BLOOD SPECIMENOrdering Facility: [facility] Address: [address] [place] [address] Performed By: #### 5 7021-8 ####[facility] LABORATORYCLIA [id number] [place] [id number] [place] Platelets (Bld) [#/Vol] 226 10*3/uL Normal 150-400 [facility] Comment on above: Order Comment: Speci men Type: BLOOD SPECIMENOrdering Facility: [facility] Address: [address] [place] [address] Performed By: #### 5 7021-8 ####[facility] LABORATORYCLIA [id number] [place] [id number] [place] RBC (Bld) [#/Vol] 4.87 10*6/uL Normal 3.90-5.20 [facility] Comment on above: Order Comment: Speci men Type: BLOOD SPECIMENOrdering Facility: [facility] Address: [address] [place] [address] Performed By: #### 5 7021-8 ####[facility] LABORATORYCLIA [id number] [place] [address] [place] WBC (Bld) [#/Vol] 4.79 10*3/uL Normal 3.70-11.00 [facility] Comment on above: Order Comment: Speci men Type: BLOOD SPECIMENOrdering Facility: [facility] Address: [address] [place] [address] Performed By: #### 5 7021-8 ####[facility] LABORATORYCLIA [id number] [place] [address] [place] CNPNon 05-18-2023 CNPN Normal [facility] CONSULTon 05-18-2023 CONSULT Normal [facility] COPPER BLOODon 05-18-2023 Copper [Mass/Vol] 91 ug/dL Normal 80-155 [facility] Comment on above: Order Comment: Speci men Type: BLOOD SPECIMENOrdering Facility: [facility] Address: [address] [place] [address] Result Comment: This test was developed and its performance characteristics determined by [facility]'s Lucie Faustino [facility] Pathology and Laboratory Medicine [place] (-[facility]). It has not been cleared or approved by the FDA. [facility] is regulated under CLIA as qualified to perform high-complexity testing. This test is used for clinical purposes. It should not be regarded as investigational or for research. Performed By: #### C OPPER ####[facility] LABCLIA [id number] [place] [address] [place] Comprehensive metabolic 2000 panelon 05-18-2023 Albumin [Mass/Vol] 4.7 g/dL Normal 3.9-4.9 [facility] Comment on above: Order Comment: Speci men Type: BLOOD SPECIMENOrdering Facility: [facility] Address: [address] [place] [address] Performed By: #### 3 040-3, , ####[facility] LABORATORYCLIA [id number] [place] [address] [place] ALP [Catalytic activity/Vol] 76 U/L Normal 34-123 [facility] Comment on above: Order Comment: Speci men Type: BLOOD SPECIMENOrdering Facility: [facility] Address: [address] [place] [address] Performed By: #### 3 040-3, , ####[facility] LABORATORYCLIA [id number] [place] [address] [place] ALT [Catalytic activity/Vol] 19 U/L Normal 7-38 [facility] Comment on above: Order Comment: Speci men Type: BLOOD SPECIMENOrdering Facility: [facility] Address: [address] [place] [address] Performed By: #### 3 040-3, , ####[facility] LABORATORYCLIA [id number] [place] [id number] [place] Anion gap [Moles/Vol] 14 mmol/L Normal 9-18 [facility] Comment on above: Order Comment: Speci men Type: BLOOD SPECIMENOrdering Facility: [facility] Address: [address] [place] [address] Performed By: #### 3 040-3, , ####[facility] LABORATORYCLIA [id number] [place] [address] [place] AST [Catalytic activity/Vol] 42 U/L High 13-35 [facility] Comment on above: Order Comment: Speci men Type: BLOOD SPECIMENOrdering Facility: [facility] Address: [address] [place] [address] Performed By: #### 3 040-3, , ####[facility] LABORATORYCLIA [id number] [place] [address] [place] Bilirubin [Mass/Vol] 0.4 mg/dL Normal 0.2-1.3 [facility] Comment on above: Order Comment: Speci men Type: BLOOD SPECIMENOrdering Facility: [facility] Address: [address] [place] [address] Performed By: #### 3 040-3, , ####[facility] LABORATORYCLIA [id number] [place] [address] [place] Calcium [Mass/Vol] 9.2 mg/dL Normal 8.5-10.2 [facility] Comment on above: Order Comment: Speci men Type: BLOOD SPECIMENOrdering Facility: [facility] Address: [address] [place] [address] Performed By: #### 3 040-3, , ####[facility] LABORATORYCLIA [id number] [place] [address] [place] Chloride [Moles/Vol] 106 mmol/L High 97-105 [facility] Comment on above: Order Comment: Speci men Type: BLOOD SPECIMENOrdering Facility: [facility] Address: [address] [place] [address] Performed By: #### 3 040-3, , ####[facility] LABORATORYCLIA [id number] [place] [id number] [place] CO2 [Moles/Vol] 21 mmol/L Low 22-30 [facility] Comment on above: Order Comment: Speci men Type: BLOOD SPECIMENOrdering Facility: [facility] Address: [address] [place] [address] Performed By: #### 3 040-3, , ####[facility] LABORATORYCLIA [id number] [place] [id number] [place] Creatinine [Mass/Vol] 0.82 mg/dL Normal 0.58-0.96 [facility] Comment on above: Order Comment: Speci men Type: BLOOD SPECIMENOrdering Facility: [facility] Address: [address] [place] [address] Performed By: #### 3 040-3, , ####[facility] LABORATORYCLIA [id number] [place] [id number] [place] Creatinine and Glomerular filtration rate.predicted panel (S/P/Bld) 96 mL/min/1.73m??? Normal >=60 [facility] Comment on above: Order Comment: Geraldo elida Type: BLOOD SPECIMENOrdering Facility: [facility] Address: [address] [place] [address] Result Comment: Jessica mated Glomerular Filtration Rate [...] actual GFR. Performed By: #### 3 040-3, 97416-7, ####[facility] LABORATORYCLIA [id number] [place] [address] [place] Glucose [Mass/Vol] 79 mg/dL Normal 74-99 [facility] Comment on above: Order Comment: Geraldo marrero Type: BLOOD SPECIMENOrdering Facility: [facility] Address: [address] [place] [address] Result Comment: The [place] Diabetes Association (ADA) provides guidance for cutoff [...] Standards of Medical Care in Diabetes 2016, [place] [employer]. Diabetes Care. 2016.39(Suppl 1). Performed By: #### 3 040-3, 55240-8, 84047-8 ####[facility] LABORATORYCLIA [id number] [place] [address] [place] Potassium [Moles/Vol] 4.3 mmol/L Normal 3.7-5.1 [facility] Comment on above: Order Comment: Speci men Type: BLOOD SPECIMENOrdering Facility: [facility] Address: [address] [place] [address] Performed By: #### 3 040-3, , ####[facility] LABORATORYCLIA [id number] [place] [address] [place] Protein [Mass/Vol] 7.4 g/dL Normal 6.3-8.0 [facility] Comment on above: Order Comment: Speci men Type: BLOOD SPECIMENOrdering Facility: [facility] Address: [address] [place] [address] Performed By: #### 3 040-3, , ####[facility] LABORATORYCLIA [id number] [place] [address] [place] Sodium [Moles/Vol] 141 mmol/L Normal 136-144 [facility] Comment on above: Order Comment: Speci men Type: BLOOD SPECIMENOrdering Facility: [facility] Address: [address] [place] [address] Performed By: #### 3 040-3, , ####[facility] LABORATORYCLIA [id number] [place] [address] [place] Urea nitrogen [Mass/Vol] 7 mg/dL Normal 7-21 [facility] Comment on above: Order Comment: Speci men Type: BLOOD SPECIMENOrdering Facility: [facility] Address: [address] [place] [address] Performed By: #### 3 040-3, , ####[facility] LABORATORYCLIA [id number] [place] [id number] [place] Copper Lvlon 05-18-2023 Copper [Mass/Vol] 90 microgram/dL Invalid Interpretation Code 80-158 [facility] Comment on above: Result Comment: This test was developed and its performance characteristicsdetermined by [facility]. It has not been cleared or approvedby the Food and Drug Administration.Detection Limit = 5Performed at: [facility] [id number] [place], [place] [id number] MD Jhonathan Dai Performed By: #### 9 [id number], 79555976, 9128694, 1254662, [id number], 0521354, [id number], 5524540, 70708241 ####[facility] [address] [place] [address] ED PROV NOTEon 05-18-2023 ED PROV NOTE Normal [facility] Folate SerPl-mCncon 05-18-19 24 Folate [Mass/Vol] 10.3 ng/mL Normal >4.7 [facility] Comment on above: Order Comment: Speci men Type: BLOOD SPECIMENOrdering Facility: [facility] Address: [address] [place] [address] Performed By: #### 1 4338-8, 3034-6, 2284-8, 23305-6, 2132-9 ####[facility] LABCLIA [id number] [place] [address] [place] HIV Screen 4th Generation wR fxon 05-18-2023 HIV 1+2 Ab+HIV1 p24 Ag IA Ql Non-Reactive Invalid Interpretation Code Non Reactive [facility] Comment on above: Result Comment: HIV NegativeHIV-1/HIV-2 antibodies and HIV-1 p24 antigen were NOT detected.There is no laboratory evidence of HIV infection.Performed at: [facility] [address] [place], [place] [id number] PhD Cami Neri Performed By: #### 9 [id number], 84650076, 1317813, 7955878, [id number], 6584519, [id number], 5178235, [id number] ####[facility] [address] [place] [address] Iron and Iron binding capaci ty panelon 05-18-2023 Iron [Mass/Vol] 81 ug/dL Normal 41-186 [facility] Comment on above: Order Comment: Speci men Type: BLOOD SPECIMENOrdering Facility: [facility] Address: [address] [place] [address] Performed By: #### 1 4338-8, 3034-6, 2284-8, 55826-3, 2131-10 ####[facility] LABCLIA [id number] [place] [address] [place] Iron binding capacity [Mass/Vol] 292 ug/dL Normal 232-386 [facility] Comment on above: Order Comment: Speci men Type: BLOOD SPECIMENOrdering Facility: [facility] Address: [address] [place] [address] Performed By: #### 1 4338-8, 3034-6, 4-8, 50262-8, 2131-10 ####[facility] LABCLIA [id number] [place] [address] [place] Iron/TIBC [Molar ratio] 27.7 % Normal 15.0-57.0 [facility] Comment on above: Order Comment: Speci men Type: BLOOD SPECIMENOrdering Facility: [facility] Address: [address] [place] [address] Performed By: #### 1 4338-8, 3034-6, 2283-8, 05783-9, 2131-10 ####[facility] LABCLIA [id number] [place] [address] [place] Lipase SerPl-cCncon 05-18-19 24 Lipase [Catalytic activity/Vol] 37 U/L Normal 16-61 [facility] Comment on above: Order Comment: Speci men Type: BLOOD SPECIMENOrdering Facility: [facility] Address: [address] [place] [address] Performed By: #### 3 040-3, 62816-8, 99285-0 ####[facility] LABORATORYCLIA [id number] [place] [address] [place] Magnesium SerPl-mCncon 05-17 Magnesium [Mass/Vol] 2.1 mg/dL Normal 1.7-2.3 [facility] Comment on above: Order Comment: Speci men Type: BLOOD SPECIMENOrdering Facility: [facility] Address: [address] [place] [address] Performed By: #### 3 040-3, 28742-4, 23821-1 ####[facility] LABORATORYCLIA [id number] [place] [id number] [place] NURSING PROGon 05-18-2023 NURSING PROG Normal [facility] Prealb SerPl-mCncon 05-18-19 24 Prealbumin [Mass/Vol] 13 mg/dL Low 17-36 [facility] Comment on above: Order Comment: Speci men Type: BLOOD SPECIMENOrdering Facility: [facility] Address: [address] [place] [address] Performed By: #### 1 4338-8, 3034-6, 2284-8, 89652-3, 2-9 ####[facility] LABCLIA [id number] [place] [address] [place] Transferrin SerPl-mCncon Transferrin [Mass/Vol] 239 mg/dL Normal 200-360 [facility] Comment on above: Order Comment: Speci men Type: BLOOD SPECIMENOrdering Facility: [facility] Address: [address] [place] [address] Performed By: #### 1 4338-8, 3034-6, 2284-8, 65784-6, 2131-9 ####[facility] LABIA [id number] [place] [id number] [place] VITAMIN B1 PLASMAon 05-18-19 24 VITAMIN B1, PLASMA 5 nmol/L Normal 4-15 [facility] Comment on above: Order Comment: Speci men Type: BLOOD SPECIMENOrdering Facility: [facility] Address: [address] [place] [address] Result Comment: INTE RPRETIVE DATA: Vitamin B1, PlasmaThiamine (vitamin B1) is reported. However, thiamine diphosphate(TDP), the biologically active form of thiamine, is not found inmeasurable concentrations in plasma, and is best determined inwhole blood specimens. Plasma thiamine concentration reflectsrecent intake rather than body stores.This test was developed and its performance characteristicsdetermined by [facility]oc[facility]. It has not been cleared orapproved by the [place] Food and Drug Administration. This test wasperformed in a CLIA certified laboratory and is intended forclinical purposes.Performed By: [facility] [address] [place] [address]Aluueirdzt Director: Kirt Murphy MD, PhDCLIA Number: [id number] Performed By: #### P VITB1 ####[facility]PITALIA [id number] [place] [address] VITAMIN B6/PYRIDOXINon 05-17 VITAMIN B6 39.1 nmol/L Normal 20.0-125.0 [facility] Comment on above: Order Comment: Speci men Type: BLOOD SPECIMENOrdering Facility: [facility] Address: [address] [place] [address] Result Comment: INTE RPRETIVE INFORMATION: Vitamin B6 (Pyridoxal 5-Phosphate)Pyridoxal 5'-phosphate measured in a specimen collected followingan 8-hour or overnight fast accurately indicates vitamin J2ldtjzvzqkvc status. Non-fasting specimen concentration reflectsrecent vitamin intake.This test was developed and its performance characteristicsdetermined by [facility]. It has not been cleared orapproved by the [place] Food and Drug Administration. This test wasperformed in a CLIA certified laboratory and is intended forclinical purposes.Performed By: [facility] [place] [address]Enugrjcdoz Director: Kirt Murphy MD, PhDCLIA Number: [id number] Performed By: #### V ITB6 ####[facility] LABORATORIESCLIA [id number] [place] [address] Vit A SerPl-mCncon 4 Retinol [Mass/Vol] 0.17 mg/L Low 0.30-1.20 [facility] Comment on above: Order Comment: Speci men Type: BLOOD SPECIMENOrdering Facility: [facility] Address: [address] [place] [address] Result Comment: This test was developed and its performance characteristics determined [facility] [place] ([facility] It has not been cleared or approved by the FDA. [facility] is regulated under CLIA as qualified to perform high-complexity testing. This test is used for clinical purposes. It should not be regarded as investigational or for research. Performed By: #### 2 923-1 ####[facility] [id number] [place] [id number] [place] Vit B12 SerPl-mCncon 024 Cobalamin (Vitamin B12) [Mass/Vol] 1155 pg/mL Normal 232-1245 [facility] Comment on above: Order Comment: Speci men Type: BLOOD SPECIMENOrdering Facility: [facility] Address: [address] [place] [address] Performed By: #### 1 4338-8, 3034-6, 2284-8, 99126-1, 2132-9 ####[facility] [id number] [place] [address]58[address] [place] ZINC, WHOLE BLOODon 05-18-19 24 ZINC, WHOLE BLOOD 670.6 ug/dL Normal 440.0-860.0 [facility] Comment on above: Order Comment: Speci elida Type: BLOOD SPECIMENOrdering Facility: [facility] Address: [address] [place] [address] Result Comment: INTE RPRETIVE DATA: Zinc Quantitative, [...] was developed and its performance characteristicsdetermined by [facility]. It has not been cleared orapproved by the [place] Food and Drug Administration. This test wasperformed in a CLIA certified laboratory and is intended forclinical purposes.Performed By: [facility] [place] [address]Yakzncefbw Director: Kirt Murphy MD, PhDCLIA Number: [id number] Performed By: #### Z INCWB ####[facility] [id number] [place] [address] CBC w/ Auto Diffon 4 Basophils/100 WBC (Bld) 0.7 % Normal 0.0-2.0 [facility] Comment on above: Performed By: #### 2 760416, 0052457, 5412672, 47637560 ####[address] [address] Basophils/Leukocyte s Auto (Bld) [Pure # fraction] 0.0 E9/L Normal 0.0-0.2 [facility] Comment on above: Performed By: #### 2 995908, 6064876, 6278475, 67415471 ####[address] [address] Eosinophils (Bld) [#/Vol] 0.1 E9/L Normal 0.0-0.5 [facility] Comment on above: Performed By: #### 2 245449, 9229573, 9514700, 77447438 ####[address] [address] Eosinophils/100 WBC (Bld) 1.9 % Normal 0.0-8.0 [facility] Comment on above: Performed By: #### 2 717119, 4857918, 8544288, 70152722 ####[address] [address] Erythrocyte distribution width (RBC) [Ratio] 14.1 % Normal 10.9-14.2 [facility] Comment on above: Performed By: #### 2 727569, 8295603, 8213686, 79436332 ####[address] [address] Hematocrit (Bld) [Volume fraction] 41.1 % Normal 34.0-46.0 [facility] Comment on above: Performed By: #### 2 518983, 6321031, 5272315, 97581919 ####[address] [address] Hemoglobin (Bld) [Mass/Vol] 13.7 g/dL Normal 12.0-16.0 [facility] Comment on above: Performed By: #### 2 970111, 3605762, 7790044, 78807548 ####[address] [address] Lymphocytes (Bld) [#/Vol] 1.4 E9/L Normal 1.0-4.0 [facility] Comment on above: Performed By: #### 2 084182, 7642945, 7465597, 51927279 ####[address] [address] Lymphocytes/100 WBC (Bld) 38.9 % Normal 14.0-50.0 [facility] Comment on above: Performed By: #### 2 813673, 0479474, 5016499, 26259776 ####[address] [address] MCH (RBC) [Entitic mass] 29.8 pg Normal 27.0-34.0 [facility] Comment on above: Performed By: #### 2 448250, 6137050, 9619032, 27566940 ####[address] [address] MCHC (RBC) [Mass/Vol] 33.3 g/dL Normal 31.4-36.0 [facility] Comment on above: Performed By: #### 2 302684, 5147867, 9717843, 19542487 ####[address] [address] MCV (RBC) [Entitic vol] 89.5 fL Normal 80.0-100.0 [facility] Comment on above: Performed By: #### 2 343419, 3894445, 9083125, 36133013 ####[place] [address] [address] Monocytes (Bld) [#/Vol] 0.2 E9/L Normal 0.2-1.0 [facility] Comment on above: Performed By: #### 2 570818, 3059320, 5088464, 22624221 ####[address] [address] Neutrophils (Bld) [#/Vol] 1.9 E9/L Low 2.0-7.5 [facility] Comment on above: Performed By: #### 2 060788, 9123349, 1676139, 86985121 ####[address] [address] Neutrophils/100 WBC (Bld) 52.6 % Normal 36.0-75.0 [facility] Comment on above: Performed By: #### 2 500947, 8489115, 2622509, 49842654 ####[address] [address] Platelet 195.0 E9/L Normal 150.0-500.0 [facility] Comment on above: Performed By: #### 2 208153, 8920398, 2263435, 02978881 ####[address] [address] Platelet mean volume (Bld) [Entitic vol] 9.0 fL Normal 6.4-10.8 [facility] Comment on above: Performed By: #### 2 982076, 0488651, 3508767, 27265725 ####[address] [address] RBC (Bld) [#/Vol] 4.6 E12/L Normal 4.3-5.9 [facility] Comment on above: Performed By: #### 2 405358, 6594005, 9447969, 87063007 ####[address] [address] WBC corrected for nucl RBC Auto (Bld) [#/Vol] 3.6 E9/L Low 4.0-11.0 [facility] Comment on above: Performed By: #### 2 319534, 9403910, 3207883, 36226627 ####[facility] [address] [place] [address] CHEMISTRYOrdered By: SYSTEM SYSTEM on 05-17-2023 Albumin [...] 05-17-2023 Albumin [Mass/Vol] 4.5 g/dL Normal 3.3-5.0 [facility] Comment on above: Performed By: #### 2 641108, 4068670, 1627777, 89441653 ####[facility] [address] [place] [address] Albumin/Globulin (S) [Mass conc ratio] 1.6 Normal 1.1-2.2 [facility] Comment on above: Performed By: #### 2 861642, 2853488, 2961434, 64493834 ####[facility] [address] [place] [address] ALP [Catalytic activity/Vol] 61 Int._Unit/L Normal 21-98 [facility] Comment on above: Performed By: #### 2 194052, 7583308, 2409646, 85971285 ####[facility] [address] [place] [address] ALT No additional P-5'-P [Catalytic activity/Vol] 17 Int._Unit/L Normal 6-46 [facility] Comment on above: Performed By: #### 2 013727, 2677532, 2129806, 40705677 ####[facility] [address] [place] [address] Anion gap [Moles/Vol] 12 mmol/L Normal 6-16 [facility] Comment on above: Performed By: #### 2 957810, 3230943, 8333477, 77982099 ####[facility] [address] [place] [address] AST [Catalytic activity/Vol] 30 Int._Unit/L Normal 5-43 [facility] Comment on above: Performed By: #### 2 122920, 9609985, 1230785, 90684691 ####[facility] [address] [place] [address] Bilirubin [Mass/Vol] 0.5 mg/dL Normal 0.0-1.1 [facility] Comment on above: Performed By: #### 2 291997, 9764549, 8308380, 45846166 ####[facility] [address] [place] [address] Calcium [Mass/Vol] 9.2 mg/dL Normal 8.9-11.1 [facility] Comment on above: Performed By: #### 2 145323, 6320575, 3312186, 70819383 ####[facility] [address] [place] [address] Chloride [Moles/Vol] 106 mmol/L Normal 101-111 [facility] Comment on above: Performed By: #### 2 248165, 5434927, 1254113, 98792954 ####[facility] [address] [place] [address] CO2 [Moles/Vol] 24 mmol/L Normal 21-31 [facility] Comment on above: Performed By: #### 2 637236, 3650287, 3313715, 38210369 ####[facility] [address] [place] [address] Creatinine [Mass/Vol] 0.9 mg/dL Normal 0.5-1.3 [facility] Comment on above: Performed By: #### 2 568571, 9584443, 5252333, 96104905 ####[facility] [address] [place] [address] Globulin (S) [Mass/Vol] 2.9 g/dL Normal 1.4-4.0 [facility] Comment on above: Performed By: #### 2 550662, 3893187, 6099999, 78663384 ####[facility] [address] [place] [address] [place] [address] Glucose [Mass/Vol] 80 mg/dL Normal 55-199 [facility] Comment on above: Performed By: #### 2 451537, 5246131, 6331606, 73632806 ####[facility] [address] [place] [address] Potassium [Moles/Vol] 3.8 mmol/L Normal 3.5-5.3 [facility] Comment on above: Performed By: #### 2 309969, 9288338, 6519594, 13969854 ####[facility] [address] [place] [address] Protein [Mass/Vol] 7.4 g/dL Normal 6.0-7.8 [facility] Comment on above: Performed By: #### 2 701577, 5863880, 9915267, 10880686 ####[address] [address] Sodium [Moles/Vol] 138 mmol/L Normal 135-145 [facility] Comment on above: Performed By: #### 2 147588, 3521705, 5402417, 76268967 ####[facility] [address] [place] [address] Urea nitrogen [Mass/Vol] 6 mg/dL Normal 5-21 [facility] Comment on above: Performed By: #### 2 490943, 7056888, 7160229, 53649555 ####[facility] [address] [place] [address] Urea nitrogen/Creatinine [Mass ratio] 7 No Units Low 10-20 [facility] Comment on above: Performed By: #### 2 072475, 9330324, 3094054, 92640017 ####[facility] [address] [place] [address] Consent for Treatmenton Consent for Treatment [id number]#1.00TIFF Normal [facility] Discharge Instructionson Discharge Instructions [id number] 524#1.00TIFF Normal [facility] ED Clinical Summaryon 2023 ED Clinical Summary Normal Kirsty ahumada [facility] ED Note-Physicianon 05-17-19 ED Note-Physician Normal [facility] Comment on above: Result Comment: Elec tronically Signed By: Tiffani Cunningham PA-C\.br\Date and Time Signed: 05/17/23 15:46 EDT\.br\Electronically Co-Signed By: Ashutosh Albright M.D.\.br\Date and Time Co-Signed: 05/17/23 17:49 EDT ED Patient Education Noteon 05-17-2023 ED Patient Education Note Normal [facility] ED Patient Summaryon ED Patient Summary Normal [facility] HEMATOLOGYOrdered By: SYSTEM SYSTEM on 05-17-2023 [...] 05-17-2023 Magnesium [Mass/Vol] 2.1 mg/dL Normal 1.3-2.4 [facility] Comment on above: Performed By: #### 2 964804, 4960093, 5273718, 05985516 ####[facility] [address] [place] [address] Population Healthon 05-17-19 24 Population Health Normal [facility] Pre-Arrival Noteon 4 Pre-Arrival Note Normal [facility] eGFRon 05-17-2023 eGFR 86 mL/min/1.73 m2 Normal >=59 [facility] Comment on above: Order Comment: Order added by Discern Expert. Performed By: #### 2 540586, 1079687, 2008995, 21762323 ####[facility] [address] [place] [address] BMPon 05-14-2023 Anion gap [Moles/Vol] 8 mmol/L Normal 6-16 [facility] Comment on above: Performed By: #### 9 18586683, 45591310, 0597604, 8846246, 9314187449, 0627528, 5733085494, 8731816, 24136281 ####[facility] [address] [place] [address] Calcium [Mass/Vol] 8.6 mg/dL Low 8.9-11.1 [facility] Comment on above: Performed By: #### 9 19015374, 06576538, 9179138, 8683486, 9326943926, 3407081, 2644083149, 5451272, 09097539 ####[facility] [address] [place] [address] Chloride [Moles/Vol] 110 mmol/L Normal 101-111 [facility] Comment on above: Performed By: #### 9 50628413, 22339484, 0428176, 1461813, 1782248779, 6587745, 5151475281, 1477825, 76963977 ####[facility] [address] [place] [address] CO2 [Moles/Vol] 26 mmol/L Normal 21-31 [facility] Comment on above: Performed By: #### 9 30629545, 63051201, 4095805, 1856682, 6671014457, 9226389, 7708756104, 8725857, 07681971 ####[facility] [address] [place] [address] Creatinine [Mass/Vol] 0.9 mg/dL Normal 0.5-1.3 [facility] Comment on above: Performed By: #### 9 37965195, 82109907, 6163992, 2482350, 1033646249, 7473852, 3971767552, 4216424, 87262091 ####[facility] [address] [place] [address] Glucose [Mass/Vol] 96 mg/dL Normal 55-199 [facility] Comment on above: Performed By: #### 9 85743028, 79654038, 4039372, 2472482, 9191799909, 4298222, 9310225974, 8794955, 09224281 ####[facility] [address] [place] [address] Potassium [Moles/Vol] 4.0 mmol/L Normal 3.5-5.3 [facility] Comment on above: Performed By: #### 9 92171785, 31197847, 1273833, 1063848, 1904148422, 2820923, 9567842765, 9809852, 48996210 ####[place] [address] [place] [address] Sodium [Moles/Vol] 140 mmol/L Normal 135-145 [facility] Comment on above: Performed By: #### 9 17548754, 46812741, 1832841, 6722865, 8646394723, 8052054, 0461940699, 2357514, 04759425 ####[facility] [address] [place] [address] Urea nitrogen [Mass/Vol] 5 mg/dL Normal 5-21 [facility] Comment on above: Performed By: #### 9 79991489, 46311228, 0327179, 5759624, 8895563797, 3190996, 9020223560, 4149349, 23812187 ####[facility] [address] [place] [address] Urea nitrogen/Creatinine [Mass ratio] 6 No Units Low 10-20 [facility] Comment on above: Performed By: #### 9 80071936, 38633363, 2109287, 5844517, 1825755600, 0481273, 3074783494, 7502195, 21605473 ####[place] [place] [address] CBC w/ Auto Diffon 4 Basophils/100 WBC (Bld) 1.4 % Normal 0.0-2.0 [facility] Comment on above: Performed By: #### 9 10441265, 41085776, 0987131, 6908372, 7704541957, 5640950, 8750739580, 3538214, 11859708 ####[place] [address] Basophils/Leukocyte s Auto (Bld) [Pure # fraction] 0.0 E9/L Normal 0.0-0.2 [facility] Comment on above: Performed By: #### 9 42369841, 93413690, 5550560, 2398289, 4429185650, 7010039, 7209213535, 0538839, 92845876 ####[place] [address] Eosinophils (Bld) [#/Vol] 0.1 E9/L Normal 0.0-0.5 [facility] Comment on above: Performed By: #### 9 52889325, 61837210, 9524833, 3848980, 2027407991, 2851978, 8649923196, 9668438, 27185691 ####[place] [address] Eosinophils/100 WBC (Bld) 6.1 % Normal 0.0-8.0 [facility] Comment on above: Performed By: #### 9 44130918, 80901010, 4179609, 1214501, 3593403159, 3260989, 0333985500, 7702241, 49219520 ####[place] [address] Erythrocyte distribution width (RBC) [Ratio] 14.4 % High 10.9-14.2 [facility] Comment on above: Performed By: #### 9 34561422, 82847292, 4753679, 5654281, 5074527241, 7107456, 6606069901, 8334885, 24003448 ####[place] [address] Hematocrit (Bld) [Volume fraction] 36.1 % Normal 34.0-46.0 [facility] Comment on above: Performed By: #### 9 36041136, 26005105, 8812835, 5994552, 1869197330, 0329068, 2533628903, 4692947, 32375984 ####[facility] [address] [place] [address] Hemoglobin (Bld) [Mass/Vol] 12.2 g/dL Normal 12.0-16.0 [facility] Comment on above: Performed By: #### 9 32518887, 75279744, 2533826, 1228396, 1185578269, 1575612, 1388666459, 8250146, 41504065 ####[address] [address] Lymphocytes (Bld) [#/Vol] 1.1 E9/L Normal 1.0-4.0 [facility] Comment on above: Performed By: #### 9 89558996, 46867571, 3258848, 4060865, 4970641556, 5290754, 9592583174, 4795746, 21877589 ####[address] [address] Lymphocytes/100 WBC (Bld) 51.0 % High 14.0-50.0 [facility] Comment on above: Performed By: #### 9 98763190, 90188590, 7724508, 3231094, 1159658744, 3346131, 6234186352, 4917266, 02938976 ####[address] [address] MCH (RBC) [Entitic mass] 30.3 pg Normal 27.0-34.0 [facility] Comment on above: Performed By: #### 9 55348310, 66663029, 3326076, 6647789, 1763558661, 5372073, 5085073410, 4657647, 39174544 ####[address] [address] MCHC (RBC) [Mass/Vol] 33.9 g/dL Normal 31.4-36.0 [facility] Comment on above: Performed By: #### 9 22667375, 41079135, 9601684, 3245436, 8952069155, 7556483, 1957678794, 9946984, 74852220 ####[address] [address] MCV (RBC) [Entitic vol] 89.3 fL Normal 80.0-100.0 [facility] Comment on above: Performed By: #### 9 83428149, 03214844, 8168683, 5962048, 3336079560, 5209259, 7831335755, 2139292, 33271285 ####[place] [address] Monocytes (Bld) [#/Vol] 0.1 E9/L Low 0.2-1.0 [facility] Comment on above: Performed By: #### 9 84052009, 88864412, 9799320, 8328151, 0933231792, 5446649, 9474899680, 3327714, 54192771 ####[address] [address] Neutrophils (Bld) [#/Vol] 0.8 E9/L Low 2.0-7.5 [facility] Comment on above: Performed By: #### 9 25501996, 06136221, 6282743, 2566561, 8309061072, 8870196, 8375402061, 0393875, 76399212 ####[place] 13[address] Neutrophils/100 WBC (Bld) 36.8 % Normal 36.0-75.0 [facility] Comment on above: Performed By: #### 9 66736587, 42666711, 1577209, 2624897, 8528222717, 3966819, 1933898687, 9517818, 27809210 ####[address] [address] Platelet mean volume (Bld) [Entitic vol] 9.3 fL Normal 6.4-10.8 [facility] Comment on above: Performed By: #### 9 79268609, 50064864, 8874765, 7096772, 4916216041, 1076843, 7271588789, 5222063, 63102464 ####[facility] [address] [place] [address] Platelets (Bld) [#/Vol] 167.0 E9/L Normal 150.0-500.0 [facility] Comment on above: Performed By: #### 9 98042116, 14694657, 1348194, 3926385, 6151398995, 4317701, 0457887332, 3575181, 75898029 ####[facility] [address] [place] [address] RBC (Bld) [#/Vol] 4.0 E12/L Low 4.3-5.9 [facility] Comment on above: Performed By: #### 9 20832658, 67702550, 2546234, 1664665, 7028655307, 5622048, 5292588215, 6955756, 52333887 ####[facility] [address] [place] [address] WBC corrected for nucl RBC Auto (Bld) [#/Vol] 2.1 E9/L Low 4.0-11.0 [facility] Comment on above: Result Comment: Resu lts consistant with previous path review on 05/13/23, reviewed by [id number] Performed By: #### 9 46274963, 26700778, 0040770, 2837140, 1486755671, 1020502, 3119971589, 7402644, 00541511 ####[facility] [address] [place] [address] CHEMISTRYOrdered By: SYSTEM SYSTEM on 05-14-2023 Anion [...] Chem Consultation Noteon 05-14-19 Consultation Note Normal [facility] Comment on above: Result Comment: Elec tronically Signed By: Miguel JOHNSON, Jon Smith\.br\Date and Time Signed: 05/14/23 11:54 EDT Discharge Note-Nursingon Discharge Note-Nursing Invalid Interpretation Code [address] [place] [address] [place] [address]- \.br\ Wednesday 9:45 AM EDT \.br\ With: Nasim JOHNSON, Rajni Balelsteros\.br\ Where: [facility] Folateon 05-14-2023 Folate [Mass/Vol] 10.1 ng/mL Normal >=6.7 [facility] Comment on above: Performed By: #### 9 09665779, 80161931, 3129687, 3466040, 8334358087, 6822818, 8057828234, 0168603, 09692330 ####[facility] [address] [place] [address] HEMATOLOGYOrdered By: SYSTEM SYSTEM on 05-14-2023 Basophils/100 [...] previous path review on 05/13/23, reviewed by [id number] Inpatient Clinical Summaryon 05-14-2023 Inpatient Clinical Summary Normal [facility] Inpatient Patient Summaryon 05-14-2023 Inpatient Patient Summary Normal [facility] Interdisciplinary Note - Taz e Manageron 05-14-2023 Interdisciplinary Note - Field Clerk Normal [facility] Comment on above: Result Comment: Elec tronically Signed By: Kera Diehl\.br\Date and Time Signed: 05/14/23 10:23 EDT IntraOperative Documentson 0 05-14-2023 IntraOperative Documents [id number] Normal [facility] Progress Note-Physicianon Progress Note-Physician Normal [facility] Comment on above: Result Comment: Elec tronically Signed By: Moncho Trejo DO.br\Date and Time Signed: 05/14/23 10:14 EDT Progress Note-Physician Normal [facility] Comment on above: Result Comment: Elec tronically Signed By: Kuldip Arcos Jr, DO.br\Date and Time Signed: 05/14/23 07:41 EDT Progress Note-Physician Normal [facility] Comment on above: Result Comment: Elec tronically Signed By: Kuldip Arcos Jr, DO\.br\Date and Time Signed: 05/14/23 07:41 EDT Vit B12on 05-14-2023 Cobalamin (Vitamin B12) [Mass/Vol] 791 pg/mL Normal 50-1500 [facility] Comment on above: Performed By: #### 9 76467435, 58394577, 5189169, 7837689, 9584525449, 1779591, 9621756057, 6282286, 63659032 ####[address] [address] eGFRon 05-14-2023 eGFR 86 mL/min/1.73 m2 Normal >=59 [facility] Comment on above: Order Comment: Order added by Discern Expert. Performed By: #### 9 44718644, 88732101, 8380300, 4485145, 0301177118, 8035056, 1040869082, 1674925, 70187367 ####[address] [address] CBC w/ Auto Diffon 4 Basophils/100 WBC (Bld) 1.2 % Normal 0.0-2.0 [facility] Comment on above: Performed By: #### 2 378109, 0794965, 59777353, 07802752 ####[address] [address] Basophils/Leukocyte s Auto (Bld) [Pure # fraction] 0.0 E9/L Normal 0.0-0.2 [facility] Comment on above: Performed By: #### 2 918733, 8795280, 74907817, 31838030 ####[address] [address] Eosinophils (Bld) [#/Vol] 0.1 E9/L Normal 0.0-0.5 [facility] Comment on above: Performed By: #### 2 397499, 2605815, 55483586, 82050154 ####[address] [address] Eosinophils/100 WBC (Bld) 4.7 % Normal 0.0-8.0 [facility] Comment on above: Performed By: #### 2 012521, 3544613, 47196647, 56073520 ####[address] [address] Erythrocyte distribution width (RBC) [Ratio] 14.3 % High 10.9-14.2 [facility] Comment on above: Performed By: #### 2 180113, 3154006, 69321538, 99278545 ####[place] [address] Hematocrit (Bld) [Volume fraction] 37.1 % Normal 34.0-46.0 [facility] Comment on above: Performed By: #### 2 076589, 5566226, 80088548, 22245605 ####[place] [address] Hemoglobin (Bld) [Mass/Vol] 12.5 g/dL Normal 12.0-16.0 [facility] Comment on above: Performed By: #### 2 059293, 7382999, 09264439, 42177148 ####[place] 13[address] Lymphocytes (Bld) [#/Vol] 1.1 E9/L Normal 1.0-4.0 [facility] Comment on above: Performed By: #### 2 364474, 6526025, 12313847, 38380313 ####[address] [address] Lymphocytes/100 WBC (Bld) 53.2 % High 14.0-50.0 [facility] Comment on above: Performed By: #### 2 361677, 9068729, 19533982, 96350478 ####[address] [address] MCH (RBC) [Entitic mass] 30.1 pg Normal 27.0-34.0 [facility] Comment on above: Performed By: #### 2 391680, 6476612, 33909060, 73434509 ####[address] [address] MCHC (RBC) [Mass/Vol] 33.6 g/dL Normal 31.4-36.0 [facility] Comment on above: Performed By: #### 2 927736, 5600998, 28147543, 38055512 ####[address] [address] MCV (RBC) [Entitic vol] 89.4 fL Normal 80.0-100.0 [facility] Comment on above: Performed By: #### 2 383742, 5772962, 17398446, 83038874 ####[address] [address] Monocytes (Bld) [#/Vol] 0.1 E9/L Low 0.2-1.0 [facility] Comment on above: Performed By: #### 2 450665, 7126294, 98236399, 68800586 ####[address] [address] Neutrophils (Bld) [#/Vol] 0.7 E9/L Low 2.0-7.5 [facility] Comment on above: Performed By: #### 2 953424, 4902297, 79750369, 75880014 ####[address] [address] Neutrophils/100 WBC (Bld) 34.6 % Low 36.0-75.0 [facility] Comment on above: Performed By: #### 2 968861, 8750158, 12758635, 08325510 ####[address] [address] Platelet 168.0 E9/L Normal 150.0-500.0 [facility] Comment on above: Performed By: #### 2 269990, 7902126, 00993493, 19178465 ####[address] [address] Platelet mean volume (Bld) [Entitic vol] 9.1 fL Normal 6.4-10.8 [facility] Comment on above: Performed By: #### 2 591159, 3502821, 47952301, 80332385 ####[address] [address] RBC (Bld) [#/Vol] 4.1 E12/L Low 4.3-5.9 [facility] Comment on above: Performed By: #### 2 029223, 9900200, 14922476, 06407751 ####[facility] [address] [place] [address] WBC corrected for nucl RBC Auto (Bld) [#/Vol] 2.0 E9/L Abnormal 4.0-11.0 [facility] Comment on above: Result Comment: Resu lts called to JACKSON MARROQUIN by and read back on 05/13/2023 07:20:49.Critical Result Verified by Repeat AnalysisSlide review performed Performed By: #### 2 688040, 7196338, 77612034, 18406572 ####[facility] [address] [place] [address] CHEMISTRYOrdered By: SYSTEM SYSTEM on 05-13-2023 Albumin [...] 05-13-2023 Albumin [Mass/Vol] 3.9 g/dL Normal 3.3-5.0 [facility] Comment on above: Performed By: #### 2 987568, 9796673, 09573899, 54976820 ####[facility] [address] [place] [address] Albumin/Globulin (S) [Mass conc ratio] 1.6 Normal 1.1-2.2 [facility] Comment on above: Performed By: #### 2 297474, 5195094, 44054590, 44729932 ####[facility] [address] [place] [address] ALP [Catalytic activity/Vol] 49 Int._Unit/L Normal 21-98 [facility] Comment on above: Performed By: #### 2 481500, 7620129, 98418866, 83936187 ####[facility] [address] [place] [address] ALT No additional P-5'-P [Catalytic activity/Vol] 12 Int._Unit/L Normal 6-46 [facility] Comment on above: Performed By: #### 2 734859, 8902818, 59177040, 59184130 ####[facility] [address] [place] [address] Anion gap [Moles/Vol] 9 mmol/L Normal 6-16 [facility] Comment on above: Performed By: #### 2 541610, 3303577, 22544366, 68856921 ####[facility] [address] [place] [address] AST [Catalytic activity/Vol] 23 Int._Unit/L Normal 5-43 [facility] Comment on above: Performed By: #### 2 856381, 1594218, 37451483, 71144462 ####[facility] [address] [place] [address] Bilirubin [Mass/Vol] 0.4 mg/dL Normal 0.0-1.1 [facility] Comment on above: Performed By: #### 2 657855, 9450376, 64827654, 52003912 ####[facility] [address] [place] [address] Calcium [Mass/Vol] 8.4 mg/dL Low 8.9-11.1 [facility] Comment on above: Performed By: #### 2 552939, 7669789, 90416121, 73247280 ####[facility] [address] [place] [address] Chloride [Moles/Vol] 111 mmol/L Normal 101-111 [facility] Comment on above: Performed By: #### 2 327562, 6968460, 77656603, 16950180 ####[facility] [address] [place] [address] CO2 [Moles/Vol] 24 mmol/L Normal 21-31 [facility] Comment on above: Performed By: #### 2 980011, 1066170, 45048723, 76371719 ####[facility] [address] [place] [address] Creatinine [Mass/Vol] 0.7 mg/dL Normal 0.5-1.3 [facility] Comment on above: Performed By: #### 2 057143, 4734999, 67640000, 42023986 ####[facility] [address] [place] [address] Globulin (S) [Mass/Vol] 2.5 g/dL Normal 1.4-4.0 [facility] Comment on above: Performed By: #### 2 980605, 8393558, 40906915, 36835870 ####[facility] [address] [place] [address] Glucose [Mass/Vol] 84 mg/dL Normal 55-199 [facility] Comment on above: Performed By: #### 2 582730, 2184735, 59095884, 09587147 ####[facility] [address] [place] [address] Potassium [Moles/Vol] 3.7 mmol/L Normal 3.5-5.3 [facility] Comment on above: Performed By: #### 2 750078, 4649850, 15075304, 72079234 ####[facility] [address] [place] [address] Protein [Mass/Vol] 6.4 g/dL Normal 6.0-7.8 [facility] Comment on above: Performed By: #### 2 991031, 9176072, 24314664, 22118011 ####[facility] [address] [place] [address] Sodium [Moles/Vol] 140 mmol/L Normal 135-145 [facility] Comment on above: Performed By: #### 2 175049, 6469072, 23388021, 43021946 ####[facility] [address] [place] [address] Urea nitrogen [Mass/Vol] 7 mg/dL Normal 5-21 [facility] Comment on above: Performed By: #### 2 017749, 6012233, 60106178, 25130702 ####[facility] [address] [place] [address] Urea nitrogen/Creatinine [Mass ratio] 10 No Units Normal 10-20 [facility] Comment on above: Performed By: #### 2 167924, 4341503, 85415577, 64473469 ####[facility] [address] [place] [address] Consenton 05-13-2023 Consent [id number] Normal [facility] Consultation Noteon 05-13-19 24 Consultation Note Normal [facility] Comment on above: Result Comment: Elec [...] reticulocytes. Leukocytopenia with reactive lymphocytes and monocytes.CPT 06339 Invalid Interpretation Code [facility] HemeManSS Interdisciplinary Note - Taz e Manageron 05-13-2023 Interdisciplinary Note - Field Clerk Normal [facility] Comment on above: Result Comment: Elec tronically Signed By: Kera Diehl\.br\Date and Time Signed: 05/13/23 13:46 EDT Main OR Intraoperative Recor don 05-13-2023 Main OR Intraoperative Record Normal [facility] Oncology Progress Noteon Oncology Progress Note Normal [facility] Path. Reviewon 05-13-2023 Path Review Anemia with no increase of reticulocytes. Leukocytopenia with reactive lymphocytes and monocytes. Invalid Interpretation Code [facility] Comment on above: Order Comment: Order added by Discern Expert Performed By: #### 2 261497, 6288844, 56184855, 00181307 ####[facility] [address] [place] [address] Progress Note-Physicianon Progress Note-Physician Normal [facility] Comment on above: Result Comment: Elec tronically Signed By: Neil VALENZUELA, Moncho Nealbr\Date and Time Signed: 05/13/23 10:43 EDT eGFRon 05-13-2023 eGFR 116 mL/min/1.73 m2 Normal >=59 [facility] Comment on above: Order Comment: Order added by Mariela Expert. Performed By: #### 2 721189, 8903115, 57742231, 77633747 ####[facility] [address] [place] [address] B hCG Qualon 05-12-2023 Beta HCG ( test) Ql Negative Normal [facility] Comment on above: Performed By: #### 1 3515291, 7346912, 42213415, 4045310, 4375416, 56417861, 42567973, 1304270 ####[facility] [address] [place] [address] BMPOrdered By: SYSTEM SYSTEM on 05-12-2023 Anion gap [Moles/Vol] 11 mmol/L Normal 6-16 [facility] Comment on above: Performed By: #### 1 6229855, 0718043, 22287457, 5384718, 1442138, 84716510, 88384743, 0488357 ####[facility] [address] [place] [address] Calcium [Mass/Vol] 9.0 mg/dL Normal 8.9-11.1 [facility] Comment on above: Performed By: #### 1 8065435, 0991951, 97451670, 6285359, 5470486, 14316386, 98976403, 5585921 ####[facility] [address] [place] [address] Chloride [Moles/Vol] 105 mmol/L Normal 101-111 [facility] Comment on above: Performed By: #### 1 4010706, 4529252, 82790575, 8596777, 3205217, 91001907, 14749714, 9535931 ####[address] [place] [address] CO2 [Moles/Vol] 25 mmol/L Normal 21-31 [facility] Comment on above: Performed By: #### 1 9602286, 3974342, 30353830, 5883506, 8616421, 38531322, 06736074, 2901828 ####[address] [address] Creatinine [Mass/Vol] 1.0 mg/dL Normal 0.5-1.3 [facility] Comment on above: Performed By: #### 1 0728475, 5740637, 05402281, 5981585, 6657736, 59811425, 15104254, 6265291 ####[address] [address] Glucose [Mass/Vol] 94 mg/dL Normal 55-199 [facility] Comment on above: Performed By: #### 1 0711252, 3120774, 39564615, 4618668, 1552568, 15621142, 66886283, 0049611 ####[address] [address] Potassium [Moles/Vol] 3.9 mmol/L Normal 3.5-5.3 [facility] Comment on above: Performed By: #### 1 3399657, 7785984, 80304867, 6387247, 3833715, 17234479, 39775937, 9859388 ####[address] [address] Sodium [Moles/Vol] 137 mmol/L Normal 135-145 [facility] Comment on above: Performed By: #### 1 5259144, 5676099, 65618971, 9872718, 5625227, 80377424, 60215699, 5663094 ####[place] [address] [address] Urea nitrogen [Mass/Vol] 10 mg/dL Normal 5-21 [facility] Comment on above: Performed By: #### 1 5389601, 9225041, 46173666, 0469998, 7391243, 89401201, 12518877, 9235683 ####[place] [address] [address] BMPon 05-12-2023 Urea nitrogen/Creatinine [Mass ratio] 10 No Units Normal 10-20 [facility] Comment on above: Performed By: #### 1 7093506, 2231956, 64375807, 3213929, 5678707, 16614017, 10273227, 7695332 ####[place] [address] [address] CBC w/ Auto DiffOrdered By: SYSTEM SYSTEM on 05-12-2023 Basophils/100 WBC (Bld) 0.9 % Normal 0.0-2.0 [facility] Comment on above: Performed By: #### 1 6307585, 5942025, 17679364, 1351107, 1073325, 32487181, 99919607, 0488603 ####[place] [address] [address] Basophils/Leukocyte s Auto (Bld) [Pure # fraction] 0.0 E9/L Normal 0.0-0.2 [facility] Comment on above: Performed By: #### 1 1370619, 8562519, 95452045, 9600507, 2752070, 35331748, 44034558, 8837194 ####[place] [address] [address] Eosinophils (Bld) [#/Vol] 0.1 E9/L Normal 0.0-0.5 [facility] Comment on above: Performed By: #### 1 4377256, 7633194, 14308896, 5433268, 9789275, 34464028, 26034017, 9335326 ####[place] [address] [address] Eosinophils/100 WBC (Bld) 2.3 % Normal 0.0-8.0 [facility] Comment on above: Performed By: #### 1 9656176, 9801816, 91919317, 8659212, 8619531, 99651050, 36997191, 3071243 ####[place] [address] [address] Erythrocyte distribution width (RBC) [Ratio] 14.3 % High 10.9-14.2 [facility] Comment on above: Performed By: #### 1 5336337, 2126746, 35638675, 1866012, 0739065, 78878236, 55920129, 5036867 ####[place] [address] [address] Hematocrit (Bld) [Volume fraction] 39.8 % Normal 34.0-46.0 [facility] Comment on above: Performed By: #### 1 0432579, 9947484, 95416783, 3583526, 7457918, 47400356, 59381247, 4012181 ####[place] [address] [address] Hemoglobin (Bld) [Mass/Vol] 13.5 g/dL Normal 12.0-16.0 [facility] Comment on above: Performed By: #### 1 2087914, 7460114, 12697127, 4864997, 4755134, 48868250, 86083313, 2071924 ####[place] [address] [address] Lymphocytes (Bld) [#/Vol] 1.3 E9/L Normal 1.0-4.0 [facility] Comment on above: Performed By: #### 1 0709844, 2176238, 30453677, 8937259, 7274538, 92636645, 51210484, 5758776 ####[place] [address] [address] Lymphocytes/100 WBC (Bld) 46.0 % Normal 14.0-50.0 [facility] Comment on above: Performed By: #### 1 8619247, 3113848, 65262487, 7892994, 1793714, 47032430, 63806731, 3911116 ####[place] [address] MCH (RBC) [Entitic mass] 30.2 pg Normal 27.0-34.0 [facility] Comment on above: Performed By: #### 1 4094111, 7993970, 98941467, 5433845, 7085128, 58888326, 89051298, 9780894 ####[place] [address] MCHC (RBC) [Mass/Vol] 34.0 g/dL Normal 31.4-36.0 [facility] Comment on above: Performed By: #### 1 5510955, 4994553, 73495297, 0941413, 6965854, 24610834, 81572699, 6750545 ####[place] [address] MCV (RBC) [Entitic vol] 88.8 fL Normal 80.0-100.0 [facility] Comment on above: Performed By: #### 1 1095130, 4343566, 17802733, 6083126, 5812821, 87007761, 23309279, 2722496 ####[place] [address] Monocytes (Bld) [#/Vol] 0.2 E9/L Normal 0.2-1.0 [facility] Comment on above: Performed By: #### 1 1592844, 2817276, 02313272, 0299182, 5567448, 87865225, 25833361, 8938797 ####[place] [address] Neutrophils (Bld) [#/Vol] 1.2 E9/L Low 2.0-7.5 [facility] Comment on above: Performed By: #### 1 7068205, 8724464, 35680766, 4043050, 6397964, 14832466, 80280807, 1187408 ####[place] [address] [address] Neutrophils/100 WBC (Bld) 42.5 % Normal 36.0-75.0 [facility] Comment on above: Performed By: #### 1 8782488, 6225133, 26341141, 8814039, 5312653, 59218039, 48577742, 7541450 ####[place] [address] [address] Platelet mean volume (Bld) [Entitic vol] 9.0 fL Normal 6.4-10.8 [facility] Comment on above: Performed By: #### 1 9946788, 7595059, 18446537, 0805495, 9431868, 03279374, 00689402, 0976941 ####[place] [address] [address] Platelets (Bld) [#/Vol] 179.0 E9/L Normal 150.0-500.0 [facility] Comment on above: Performed By: #### 1 3675659, 5756458, 66711041, 9383046, 9243325, 70989553, 08400024, 5957266 ####[place] [address] [address] RBC (Bld) [#/Vol] 4.5 E12/L Normal 4.3-5.9 [facility] Comment on above: Performed By: #### 1 8711104, 2363979, 46833995, 1125085, 5795493, 98292441, 18375481, 3368071 ####[place] [address] [address] WBC corrected for nucl RBC Auto (Bld) [#/Vol] 2.8 E9/L Low 4.0-11.0 [facility] Comment on above: Performed By: #### 1 2123197, 2098824, 15109800, 1371615, 9040479, 81631967, 37038524, 3387086 ####[place] [facility] [address] [place] [address] CHEMISTRYOrdered By: SYSTEM SYSTEM on 05-12-2023 Albumin/Globulin [...] 34.7 s Normal 25.1 - 36.5 second(s) [facility] Auto Coag Comment on above: Interpretive Data: [...] the same coagulation reagent and instrumentation as [facility]. Currently there are no coagulation studies available worldwide for children to 14 days, and no normal ranges. Heparin therapeutic range (represented by Anti-Factor Xa activity of 0.2 - 0.4 U/mL) corresponds to PTT of 56.6 - 109.0 sec. PT Coag (PPP) [Time] 13.1 s High 9.4 - 12.5 second(s) [facility] Auto Coag Comment on above: Interpretive Data: [...] the same coagulation reagent and instrumentation as [facility]. Currently there are no coagulation studies available worldwide for children to 14 days, and no normal ranges. Consent for Treatmenton 04-16 Consent for Treatment [id number] 68#1.00TIFF Normal [facility] Consultation Noteon 05-12-19 Consultation Note Normal [facility] Comment on above: Result Comment: Elec tronically Signed By: Jon Rivera MD\.br\Date and Time Signed: 05/12/23 15:42 EDT ED Clinical Summaryon 2023 ED Clinical Summary Normal [facility] ED Note-Physicianon 05-12-19 ED Note-Physician Normal [facility] Comment on above: Result Comment: Elec tronically Signed By: Mauricio López PA-C\.br\Date and Time Signed: 05/12/23 12:06 EDT\.br\Electronically Co-Signed By: Mateusz Garcia DO\.br\Date and Time Co-Signed: 05/12/23 12:48 EDT ED Patient Education Noteon 05-12-2023 ED Patient Education Note Normal [facility] ED Patient Summaryon 024 ED Patient Summary Normal [facility] Endoscopic Procedure Report - Otheron 05-12-2023 Endoscopic Procedure Report - Other Normal [facility] Comment on above: Result Comment: Elec tronically Signed By: Miguel JOHNSON, Jon Smith\.rene\Date and Time Signed: 05/12/23 15:48 EDT Other Comment: Ramya jordan Attachment - attachment storage system not supported [id number] Can be viewed in source systemMissing Attachment - attachment storage system not supported [id number] Can be viewed in source systemMissing Attachment - attachment storage system not supported [id number] Can be viewed in source systemMissing Attachment - attachment storage system not supported [id number] Can be viewed in source systemMissing Attachment - attachment storage system not supported [id number] Can be viewed in source systemMissing Attachment - attachment storage system not supported [id number] Can be viewed in source systemMissing Attachment - attachment storage system not supported 6373566 Can be viewed in source systemMissing Attachment - attachment storage system not supported [id number] Can be viewed in source systemMissing Attachment - attachment storage system not supported [id number] Can be viewed in source system HEMATOLOGYOrdered By: SYSTEM SYSTEM on 05-12-2023 Monocytes/100 WBC (Bld) 8.3 % Normal 4.0 - 14.0 % [facility] Hep Func PanelOrdered By: SY STEM SYSTEM on 05-12-2023 Albumin [Mass/Vol] 4.3 g/dL Normal 3.3-5.0 [facility] Comment on above: Performed By: #### 1 8492198, 4042445, 52475965, 4554732, 3202129, 02483183, 62351356, 7074746 ####[facility] [address] [place] [address] Bilirubin [Mass/Vol] 0.4 mg/dL Normal 0.0-1.1 [facility] Comment on above: Performed By: #### 1 0615618, 9810866, 48627847, 8499878, 7972309, 28188976, 95438665, 5788346 ####[facility] [address] [place] [address] Bilirubin.direct [Mass/Vol] 0.1 mg/dL Normal 0.0-0.4 [facility] Comment on above: Performed By: #### 1 7690678, 2736484, 57257591, 8842542, 3025772, 75419391, 04584743, 0834653 ####[address] [place] [address] Bilirubin.indirect [Mass or moles/Vol] 0.3 mg/dL Normal 0.1-0.9 [facility] Comment on above: Performed By: #### 1 3406465, 6679688, 41547622, 8704182, 0114065, 09184434, 89762435, 4680031 ####[address] [address] Globulin (S) [Mass/Vol] 2.3 g/dL Normal 1.4-4.0 [facility] Comment on above: Performed By: #### 1 7388765, 3908450, 88377194, 0214042, 6839102, 38979188, 05614897, 2058257 ####[address] [address] Protein [Mass/Vol] 6.6 g/dL Normal 6.0-7.8 [facility] Comment on above: Performed By: #### 1 6219109, 2558493, 45631374, 0256156, 3633900, 30927359, 98773816, 4662522 ####[address] [address] Hep Func Panelon 05-12-2023 Albumin/Globulin (S) [Mass conc ratio] 1.9 Normal 1.1-2.2 [facility] Comment on above: Performed By: #### 1 0222648, 0230269, 91219071, 0896753, 0810224, 45140447, 76762831, 2213879 ####[address] [address] ALP [Catalytic activity/Vol] 58 Int._Unit/L Normal 21-98 [facility] Comment on above: Performed By: #### 1 4075815, 2027344, 09089478, 2761614, 2692888, 81522857, 45108748, 5505088 ####[facility] [address] [place] [address] ALT No additional P-5'-P [Catalytic activity/Vol] 14 Int._Unit/L Normal 6-46 [facility] Comment on above: Performed By: #### 1 4916921, 8022566, 98004825, 0521129, 7500138, 09634025, 68244902, 5697730 ####[facility] [address] [place] [address] AST [Catalytic activity/Vol] 26 Int._Unit/L Normal 5-43 [facility] Comment on above: Performed By: #### 1 4685645, 0343586, 28944510, 7246307, 5655353, 44560490, 01751893, 5625707 ####[address] [place] [address] Interdisciplinary Note - Taz e Manageron 05-12-2023 Interdisciplinary Note - Field Clerk Normal [facility] Comment on above: Result Comment: Elec tronically Signed By: Kera Diehl\.br\Date and Time Signed: 05/12/23 15:40 EDT Lipase LevelOrdered By: Bioclones SYSTEM on 05-12-2023 Lipase [Catalytic activity/Vol] 35 U/L Normal 13-58 [facility] Comment on above: Performed By: #### 1 6361279, 8650054, 65439669, 5773868, 9344440, 17846846, 13641750, 3253826 ####[facility] [address] [place] [address] Main OR PACU I Recordon 04-16 Main OR PACU I Record Normal [facility] Main OR Preoperative Recordo n 05-12-2023 Main OR Preoperative Record Normal [facility] Monitor Recordon 05-12-2023 Monitor Record [id number] 467#1.00TIFF Normal [facility] Monitor Record [id number]#1.00TIFF Normal [facility] Monitor Record [id number]#1.00TIFF Normal [facility] PT & PTTon 05-12-2023 aPTT Coag (PPP) [Time] 34.7 second(s) Normal 25.1-36.5 [facility] Comment on above: Result Comment: Para [...] the same coagulation reagent and instrumentation as [facility]. Currently there are no coagulation studies available worldwide for children to 14 days, and no normal ranges. Heparin therapeutic range (represented by Anti-Factor Xa activity of 0.2 - 0.4 U/mL) corresponds to PTT of 56.6 - 109.0 sec. Performed By: #### 1 3758761, 8174372, 22607084, 7695874, 2347707, 53616391, 95146854, 3177121 ####[facility] [address] [place] [address] PT Coag (PPP) [Time] 13.1 second(s) High 9.4-12.5 [facility] Comment on above: Result Comment: 15 [...] the same coagulation reagent and instrumentation as [facility]. Currently there are no coagulation studies available worldwide for children to 14 days, and no normal ranges. Performed By: #### 1 0633918, 0624078, 84107105, 3394371, 3221840, 10947051, 95253472, 4280305 ####[facility] [address] [place] [address] PT & PTTOrdered By: Shannon cutler on 05-12-2023 INR Coag (PPP) [Relative time] 1.17 {INR} Invalid Interpretation Code [facility] Auto Coag Comment on above: Interpretive Data: [...] 3.0 ? 4.5 Performed By: #### 1 0322651, 7067907, 76612060, 9134417, 8750517, 46627200, 07296628, 5413706 ####[facility] [address] [place] [address] Provider Letteron 05-12-2023 Provider Letter Normal [facility] SEROLOGYOrdered By: Shannon cutler on 05-12-2023 Beta HCG ( test) Ql Negative (05/12/23 10:00 AM) Normal [facility] Man Sero Troponin 0 Hr.on 05-12-2023 Troponin I.cardiac [Mass/Vol] ng/mL Low 10.10-27.10 [facility] Comment on above: Result Comment: The 95% CI (Confidence Interval) PPV (Positive Predictive Value) for myocardial infarction in females is 38 pg/mL, in males 51 pg/mL. The results should be used in conjunction with clinical conditions of myocardial infarction.(Access High Sensitivity Troponin I Instructions For Use, Alan Gordy, September 2017) Performed By: #### 1 3344750, 9735791, 26396097, 2265615, 9955374, 93165541, 57499042, 7181986 ####[facility] [address] [place] [address] eGFROrdered By: SYSTEM [employer]back[employer] on 05-12-2023 eGFR 76 mL/min/1.73 m2 Normal >=59 [facility] Comment on above: Order Comment: Order added by Discern Expert. Performed By: #### 1 9032379, 5012554, 69827866, 4755032, 7871060, 90749499, 71496281, 8577139 ####[address] [address] CBC w/ Auto Diffon Basophils/100 WBC (Bld) 0.7 % Normal 0.0-2.0 [facility] Comment on above: Performed By: #### 2 331682, 2745742, 98639843, 7898774, 6194496, 4139282 ####[address] [address] Basophils/Leukocyte s Auto (Bld) [Pure # fraction] 0.0 E9/L Normal 0.0-0.2 [facility] Comment on above: Performed By: #### 2 040205, 4059256, 39145760, 7820794, 5847617, 5671536 ####[address] [address] Eosinophils (Bld) [#/Vol] 0.0 E9/L Normal 0.0-0.5 [facility] Comment on above: Performed By: #### 2 496504, 0883299, 16719665, 9547337, 3107746, 2025898 ####[address] [place] [address] Eosinophils/100 WBC (Bld) 1.5 % Normal 0.0-8.0 [facility] Comment on above: Performed By: #### 2 771168, 7885662, 91038474, 3735243, 1723565, 8993410 ####[address] [place] [address] Erythrocyte distribution width (RBC) [Ratio] 14.6 % High 10.9-14.2 [facility] Comment on above: Performed By: #### 2 794895, 3623865, 71575337, 1704055, 0246875, 4671231 ####[address] [address] Hematocrit (Bld) [Volume fraction] 38.7 % Normal 34.0-46.0 [facility] Comment on above: Performed By: #### 2 020278, 9801993, 72463730, 2186233, 4190079, 7419621 ####[address] [address] Hemoglobin (Bld) [Mass/Vol] 13.2 g/dL Normal 12.0-16.0 [facility] Comment on above: Performed By: #### 2 769114, 7334929, 02475041, 7822742, 8307225, 6469401 ####[address] [address] Lymphocytes (Bld) [#/Vol] 1.3 E9/L Normal 1.0-4.0 [facility] Comment on above: Performed By: #### 2 266024, 9301777, 04084477, 6047354, 1065443, 2121593 ####[address] [address] Lymphocytes/100 WBC (Bld) 48.6 % Normal 14.0-50.0 [facility] Comment on above: Performed By: #### 2 038335, 2660310, 16349067, 6519194, 1521117, 9765630 ####[address] [place] [address] MCH (RBC) [Entitic mass] 30.3 pg Normal 27.0-34.0 [facility] Comment on above: Performed By: #### 2 065464, 1698635, 76893086, 1172008, 8315557, 6271930 ####[address] [address] MCHC (RBC) [Mass/Vol] 34.2 g/dL Normal 31.4-36.0 [facility] Comment on above: Performed By: #### 2 149120, 9660255, 07812306, 5973700, 6904406, 3494377 ####[address] [address] MCV (RBC) [Entitic vol] 88.6 fL Normal 80.0-100.0 [facility] Comment on above: Performed By: #### 2 714048, 2899443, 11436494, 1400040, 5826010, 7304270 ####[address] Monocytes (Bld) [#/Vol] 0.2 E9/L Normal 0.2-1.0 [facility] Comment on above: Performed By: #### 2 561640, 5045830, 62968442, 1063912, 7387960, 5633328 ####[address] [address] Neutrophils (Bld) [#/Vol] 1.1 E9/L Low 2.0-7.5 [facility] Comment on above: Performed By: #### 2 032497, 3237573, 02682517, 9906650, 8778262, 2455615 ####[address] [address] Neutrophils/100 WBC (Bld) 40.2 % Normal 36.0-75.0 [facility] Comment on above: Performed By: #### 2 471656, 7641596, 50862876, 1656708, 7477125, 7494309 ####[address] [address] Platelet mean volume (Bld) [Entitic vol] 9.2 fL Normal 6.4-10.8 [facility] Comment on above: Performed By: #### 2 102078, 4017545, 05186517, 8690523, 7932132, 6679015 ####[facility] [address] [place] [address] Platelets (Bld) [#/Vol] 195.0 E9/L Normal 150.0-500.0 [facility] Comment on above: Performed By: #### 2 498538, 7062095, 46814348, 9493398, 0871486, 0566634 ####[address] [place] [address] RBC (Bld) [#/Vol] 4.4 E12/L Normal 4.3-5.9 [facility] Comment on above: Performed By: #### 2 697086, 2927859, 43327313, 4164425, 7311098, 9343140 ####[facility] [address] [place] [address] WBC corrected for nucl RBC Auto (Bld) [#/Vol] 2.7 E9/L Low 4.0-11.0 [facility] Comment on above: Performed By: #### 2 696456, 4630980, 43540404, 7168313, 9246079, 3130530 ####[facility] [address] [place] [address] CHEMISTRYOrdered By: SYSTEM SYSTEM on 05-11-2023 Amphetamines [...] Alternate Method called to Maribel Ortega by [id number] Interpretive Data: N egative Cutoff: <300 ng/mL [...] 05-11-2023 Albumin [Mass/Vol] 4.6 g/dL Normal 3.3-5.0 [facility] Comment on above: Performed By: #### 2 937803, 6385487, 22923551, 9710173, 9398301, 5988398 ####[facility] [address] [place] [address] Albumin/Globulin (S) [Mass conc ratio] 1.8 Normal 1.1-2.2 [facility] Comment on above: Performed By: #### 2 852488, 0635295, 91043432, 7976096, 7790659, 8434045 ####[facility] [address] [place] [address] ALP [Catalytic activity/Vol] 60 Int._Unit/L Normal 21-98 [facility] Comment on above: Performed By: #### 2 421252, 0513796, 31841598, 9086570, 2082846, 9220504 ####[facility] [address] [place] [address] ALT No additional P-5'-P [Catalytic activity/Vol] 14 Int._Unit/L Normal 6-46 [facility] Comment on above: Performed By: #### 2 282975, 2136810, 43704420, 4624201, 3306594, 7838834 ####[facility] [address] [place] [address] Anion gap [Moles/Vol] 15 mmol/L Normal 6-16 [facility] Comment on above: Performed By: #### 2 437351, 0158369, 19214660, 3775790, 8447942, 9264662 ####[facility] [address] [place] [address] AST [Catalytic activity/Vol] 25 Int._Unit/L Normal 5-43 [facility] Comment on above: Performed By: #### 2 735555, 4377068, 98516152, 1154245, 0279831, 0882610 ####[facility] [address] [place] [address] Bilirubin [Mass/Vol] 0.5 mg/dL Normal 0.0-1.1 [facility] Comment on above: Performed By: #### 2 083175, 2379228, 01503044, 0504206, 3958838, 6476104 ####[facility] [address] [place] [address] Calcium [Mass/Vol] 9.4 mg/dL Normal 8.9-11.1 [facility] Comment on above: Performed By: #### 2 086090, 0225629, 42359627, 8424593, 5868531, 5201476 ####[facility] [address] [place] [address] Chloride [Moles/Vol] 104 mmol/L Normal 101-111 [facility] Comment on above: Performed By: #### 2 401777, 6886341, 42070682, 4423070, 8745544, 8675276 ####[facility] [address] [place] [address] CO2 [Moles/Vol] 23 mmol/L Normal 21-31 [facility] Comment on above: Performed By: #### 2 176190, 9444783, 71611423, 3479668, 5081014, 5853289 ####[facility] [address] [place] [address] Creatinine [Mass/Vol] 0.8 mg/dL Normal 0.5-1.3 [facility] Comment on above: Performed By: #### 2 299924, 1246556, 63268812, 9058159, 6032369, 9715354 ####[facility] [address] [place] [address] Globulin (S) [Mass/Vol] 2.5 g/dL Normal 1.4-4.0 [facility] Comment on above: Performed By: #### 2 960475, 4674088, 85044345, 7964736, 8278984, 8219348 ####[facility] [address] [place] [address] Glucose [Mass/Vol] 80 mg/dL Normal 55-199 [facility] Comment on above: Performed By: #### 2 564284, 7991210, 62777295, 7219821, 7431730, 4484478 ####[facility] [address] [place] [address] Potassium [Moles/Vol] 3.6 mmol/L Normal 3.5-5.3 [facility] Comment on above: Performed By: #### 2 083116, 0388188, 22440863, 6683846, 8611071, 9552294 ####[facility] [address] [place] [address] Protein [Mass/Vol] 7.1 g/dL Normal 6.0-7.8 [facility] Comment on above: Performed By: #### 2 425033, 5263969, 54351460, 5946966, 7558328, 0089987 ####[facility] [address] [place] [address] Sodium [Moles/Vol] 138 mmol/L Normal 135-145 [facility] Comment on above: Performed By: #### 2 956847, 2848842, 57460030, 2106985, 9881203, 1935538 ####[facility] [address] [place] [address] Urea nitrogen [Mass/Vol] 9 mg/dL Normal 5-21 [facility] Comment on above: Performed By: #### 2 455526, 3766691, 82856733, 2278967, 9637446, 8526479 ####[facility] [address] [place] [address] Urea nitrogen/Creatinine [Mass ratio] 11 No Units Normal 10-20 [facility] Comment on above: Performed By: #### 2 100030, 8628301, 66760338, 5097388, 6381741, 1452787 ####[facility] [address] [place] [address] CT Abdomen/Pelvis w/o Contra ston 05-11-2023 CT Abdomen/Pelvis w/o Contrast Normal [facility] Consent for Treatmenton 04-16 Consent for Treatment [id number] 37#1.00TIFF Normal [facility] Discharge Instructionson Discharge Instructions [id number] 81#1.00TIFF Normal [facility] ED Clinical Summaryon 2023 ED Clinical Summary Normal Kirsty ahumada [facility] ED Note-Physicianon 05-11-19 ED Note-Physician Normal [facility] Comment on above: Result Comment: Elec tronically Signed By: Tiffani Cunningham PA-C\.br\Date and Time Signed: 05/11/23 17:06 EDT\.br\Electronically Co-Signed By: Mateusz Garcia DO\.br\Date and Time Co-Signed: 05/11/23 20:41 EDT ED Patient Education Noteon 05-11-2023 ED Patient Education Note Normal [facility] ED Patient Summaryon ED Patient Summary Normal [facility] HEMATOLOGYOrdered By: SYSTEM SYSTEM on 05-11-2023 [...] Lactic Acid Lvl 0.6 mmol/L Normal 0.5-2.2 [facility] Comment on above: Performed By: #### 2 899359, 3191734, 49158501, 0853191, 1659157, 5876549 ####[facility] [address] [place] [address] Lipase Levelon 05-11-2023 Lipase [Catalytic activity/Vol] 34 U/L Normal 13-58 [facility] Comment on above: Performed By: #### 2 091074, 7800999, 64960864, 1398199, 1680506, 1830827 ####[facility] [address] [place] [address] Magnesiumon 05-11-2023 Magnesium [Mass/Vol] 2.1 mg/dL Normal 1.3-2.4 [facility] Comment on above: Performed By: #### 2 416243, 5816437, 61348304, 1503988, 3509305, 0999110 ####[facility] [address] [place] [address] SEROLOGYOrdered By: Olga Meng on 05-11-2023 HCG.beta subunit (U) [Moles/Vol] Negative Normal [facility] Man Sero U BetaHcg Qualon 05-11-2023 HCG.beta subunit (U) [Moles/Vol] Negative Normal [facility] Comment on above: Performed By: #### 4 306077882, 77243615 ####[facility] [address] [place] [address] U Drug Screenon 05-11-2023 Amphetamines Screen method >1000 ng/mL Ql (U) Negative Normal NEGATIVE [facility] Comment on above: Result Comment: Nega tive Cutoff: <1000 ng/mL Performed By: #### 2 181140 ####[facility] [address] [place] [address] Barbiturates Screen Ql (U) Negative Normal NEGATIVE [facility] Comment on above: Result Comment: Nega tive Cutoff: <200 ng/mL Performed By: #### 2 646040 ####[facility] [address] [place] [address] Benzodiazepines Ql (U) Negative Normal NEGATIVE [facility] Comment on above: Result Comment: Nega tive Cutoff: <200 ng/mL Performed By: #### 2 868515 ####[facility] [address] [place] [address] Cannabinoids Screen Ql (U) Positive Abnormal NEGATIVE [facility] Comment on above: Result Comment: No C onfirmation Requested by PhysicianResult Verified by Repeat AnalysisUnconfirmed by an Alternate Methodcalled to Maribel Ortega by at 1404Negative Cutoff: <50 ng/mL Performed By: #### 2 253730 ####[facility] [address] [place] [address] Cocaine Ql (U) Negative Normal NEGATIVE [facility] Comment on above: Result Comment: Nega tive Cutoff: <300 ng/mL Performed By: #### 2 102920 ####[facility] [address] [place] [address] Opiates Screen Ql (U) Positive Abnormal NEGATIVE [facility] Comment on above: Result Comment: No C onfirmation Requested by PhysicianResult Verified by Repeat AnalysisUnconfirmed by an Alternate Methodcalled to Maribel Ortega by [id number] Cutoff: <300 ng/mL Performed By: #### 2 372504 ####[facility] [address] [place] [address] Phencyclidine Screen method >25 ng/mL Ql (U) Negative Normal NEGATIVE [facility] Comment on above: Result Comment: Nega tive Cutoff: <25 ng/mLThese drug screen results are to be used for medical (i.e., treatment) purposes only. Unconfirmed drug screening results must not be used for non-medical purposes (e.g., employment testing, legal testing). Performed By: #### 2 710546 ####[address] [place] [address] UA with Cult Rflxon 05-11-19 24 Color (U) Light-Yellow Normal Yellow [facility] Comment on above: Result Comment: Micr oscopic readings are only performed on those samples that meet specific criteria set forth by [facility] Laboratory. Performed By: #### 4 231548249, 05748170 ####[facility] [address] [place] [address] Glucose (U) [Mass/Vol] Negative Normal Negative [facility] Comment on above: Performed By: #### 4 563093028, 99988276 ####[facility] [address] [place] [address] Ketones Ql (U) Negative Normal Negative [facility] Comment on above: Performed By: #### 4 294635796, 84994615 ####[facility] [address] [place] [address] UA Blood Negative Normal Negative [facility] Comment on above: Performed By: #### 4 484781457, 14302272 ####[place] [address] [address] UA Clarity Clear Normal Clear [facility] Comment on above: Performed By: #### 4 721464190, 46665178 ####[address] [address] UA Leuk Est Negative Normal Negative [facility] Comment on above: Performed By: #### 4 304037472, 34069898 ####[address] [address] UA Nitrite Negative Normal Negative [facility] Comment on above: Performed By: #### 4 580995657, 86145618 ####[address] [address] UA pH 7.5 Invalid Interpretation Code 5.0-9.0 [facility] Comment on above: Performed By: #### 4 [id number], 10510692 ####[address] [address] UA Protein Negative Normal Negative [facility] Comment on above: Performed By: #### 4 234432945, 48882265 ####[address] [address] UA Spec Grav 1.010 Invalid Interpretation Code 1.005-1.030 [facility] Comment on above: Performed By: #### 4 764703871, 49736823 ####[address] [address] UA Urobilinogen Negative Normal Negative [facility] Comment on above: Performed By: #### 4 699440581, 22581085 ####[address] [address] Urobilinogen (U) [Mass/Vol] Negative Normal Negative [facility] Comment on above: Performed By: #### 4 309867146, 67298310 ####[address] [address] UA Spec Desc Clean Catch Normal [facility] Comment on above: Performed By: #### 4 360048017, 63170930 ####[facility] [address] [place] [address] URINALYSISOrdered By: SYSTEM SYSTEM on 05-11-2023 Color (U) Light-Yellow 3 (05/11/23 12:41 PM) Normal Yellow [facility]A Auto SS Comment on above: Interpretive Data: M icroscopic readings are only performed on those samples that meet specific criteria set forth by [facility]. Glucose (U) [Mass/Vol] Negative Normal [...] 05-11-2023 eGFR 99 mL/min/1.73 m2 Normal >=59 [facility] Comment on above: Order Comment: Order added by Discern Expert. Performed By: #### 2 781242, 9019504, 61329393, 9143257, 0195510, 7947602 ####[facility] [address] [place] [address] Ambulatory Visit Summaryon 0 05-10-2023 Ambulatory Visit Summary Normal [address] [place] [address]- \.br\ Medications\.br\ What How Much When Why [...] for choosing us for your care.\.br\ \.br\ [facility] CNPNon 05-10-2023 CNPN Normal [facility] Medicine Office/Clini c Noteon 05-10-2023 Family Medicine Office/Clinic Note Normal [facility] Comment on above: Result Comment: Elec tronically Signed By: Jaquan Paula\.br\Date and Time Signed: 05/10/23 14:35 EDT Home Health Record[facility] 2023 Home Health Records [id number] 80#1.00TIFF Normal [facility] Provider Letteron 05-10-2023 Provider Letter Normal [facility] B hCG Qualon 05-09-2023 Beta HCG ( test) Ql Negative Normal [facility] Comment on above: Performed By: #### 1 5674938, 84153552, 3737412, 0356808, 3599452, 9750956 ####[facility] [address] [place] [address] BMPon 05-09-2023 Anion gap [Moles/Vol] 12 mmol/L Normal 6-16 [facility] Comment on above: Performed By: #### 1 5525589, 14534303, 7059100, 2816738, 3334867, 2351219 ####[facility] [address] [place] [address] Calcium [Mass/Vol] 8.6 mg/dL Low 8.9-11.1 [facility] Comment on above: Performed By: #### 1 3982112, 87183134, 3666817, 0793216, 9971919, 8401890 ####[facility] [address] [place] [address] Chloride [Moles/Vol] 109 mmol/L Normal 101-111 [facility] Comment on above: Performed By: #### 1 5507338, 60249468, 3194713, 7298952, 8251279, 1048506 ####[facility] [address] [place] [address] CO2 [Moles/Vol] 23 mmol/L Normal 21-31 [facility] Comment on above: Performed By: #### 1 0648958, 91084980, 3537061, 8394215, 9105739, 9714259 ####[facility] [address] [place] [address] Creatinine [Mass/Vol] 0.8 mg/dL Normal 0.5-1.3 [facility] Comment on above: Performed By: #### 1 3255004, 86109632, 6248609, 4739394, 6978454, 3290500 ####[facility] [address] [place] [address] Glucose [Mass/Vol] 79 mg/dL Normal 55-199 [facility] Comment on above: Performed By: #### 1 9728007, 32238293, 1370382, 9440770, 8938267, 2491415 ####[facility] [address] [place] [address] Potassium [Moles/Vol] 3.9 mmol/L Normal 3.5-5.3 [facility] Comment on above: Performed By: #### 1 8644296, 99477821, 2631241, 9292231, 5295670, 2244326 ####[facility] [address] [place] [address] Sodium [Moles/Vol] 140 mmol/L Normal 135-145 [facility] Comment on above: Performed By: #### 1 7220684, 55769386, 5389913, 7219019, 4237115, 8800489 ####[facility] [address] [place] [address] Urea nitrogen [Mass/Vol] 9 mg/dL Normal 5-21 [facility] Comment on above: Performed By: #### 1 5667683, 05902987, 1272989, 0739653, 2159940, 7222644 ####[facility] [address] [place] [address] Urea nitrogen/Creatinine [Mass ratio] 11 No Units Normal 10-20 [facility] Comment on above: Performed By: #### 1 3476626, 74032485, 3810215, 9449265, 9701822, 6827522 ####[facility] [address] [place] [address] CBC w/ Auto Diffon 4 Basophils/100 WBC (Bld) 1.1 % Normal 0.0-2.0 [facility] Comment on above: Performed By: #### 1 6649226, 96299676, 8189174, 9283351, 7319270, 8993805 ####[address] [address] Basophils/Leukocyte s Auto (Bld) [Pure # fraction] 0.0 E9/L Normal 0.0-0.2 [facility] Comment on above: Performed By: #### 1 3603953, 57925501, 5346061, 9099564, 0874895, 2852793 ####[address] [address] Eosinophils (Bld) [#/Vol] 0.1 E9/L Normal 0.0-0.5 [facility] Comment on above: Performed By: #### 1 3793016, 00214584, 5719420, 0244464, 1080742, 6038250 ####[address] [address] Eosinophils/100 WBC (Bld) 2.1 % Normal 0.0-8.0 [facility] Comment on above: Performed By: #### 1 3688707, 07509226, 8836450, 7300428, 9895199, 5011983 ####[address] [address] Erythrocyte distribution width (RBC) [Ratio] 14.4 % High 10.9-14.2 [facility] Comment on above: Performed By: #### 1 8032856, 44013644, 9538765, 6403811, 4991200, 0892135 ####[address] [address] Hematocrit (Bld) [Volume fraction] 36.3 % Normal 34.0-46.0 [facility] Comment on above: Performed By: #### 1 2099290, 19997968, 7200625, 5804044, 6926842, 7739802 ####[address] [address] Hemoglobin (Bld) [Mass/Vol] 12.3 g/dL Normal 12.0-16.0 [facility] Comment on above: Performed By: #### 1 9133678, 94819282, 8296320, 1395822, 3675696, 8529935 ####[address] [address] Lymphocytes (Bld) [#/Vol] 1.2 E9/L Normal 1.0-4.0 [facility] Comment on above: Performed By: #### 1 1223339, 20902908, 1015458, 3346028, 2257960, 5963564 ####[address] [address] Lymphocytes/100 WBC (Bld) 42.2 % Normal 14.0-50.0 [facility] Comment on above: Performed By: #### 1 9509953, 61922960, 2655299, 3806241, 8681538, 2093198 ####[address] MCH (RBC) [Entitic mass] 30.2 pg Normal 27.0-34.0 [facility] Comment on above: Performed By: #### 1 4898630, 82086046, 9849680, 9510086, 3358963, 6212982 ####[address] [address] MCHC (RBC) [Mass/Vol] 33.9 g/dL Normal 31.4-36.0 [facility] Comment on above: Performed By: #### 1 6620646, 40518641, 1301915, 3792717, 7179265, 5291526 ####[address] [address] MCV (RBC) [Entitic vol] 89.2 fL Normal 80.0-100.0 [facility] Comment on above: Performed By: #### 1 5165039, 04219836, 9053888, 1162533, 8104289, 9502871 ####[address] [address] Monocytes (Bld) [#/Vol] 0.3 E9/L Normal 0.2-1.0 [facility] Comment on above: Performed By: #### 1 3797128, 89064562, 9719378, 4102744, 1946901, 1087130 ####[address] [place] [address] Neutrophils (Bld) [#/Vol] 1.2 E9/L Low 2.0-7.5 [facility] Comment on above: Performed By: #### 1 8249553, 00516280, 0910970, 4499701, 2536263, 1506807 ####[address] [place] [address] Neutrophils/100 WBC (Bld) 44.3 % Normal 36.0-75.0 [facility] Comment on above: Performed By: #### 1 4382612, 06104419, 1611709, 5412974, 7273156, 7312402 ####[address] [address] Platelet 201.0 E9/L Normal 150.0-500.0 [facility] Comment on above: Performed By: #### 1 2831339, 40839125, 3346397, 8858276, 6626054, 0751151 ####[address] [address] Platelet mean volume (Bld) [Entitic vol] 9.8 fL Normal 6.4-10.8 [facility] Comment on above: Performed By: #### 1 1664337, 27638445, 7242940, 7463761, 1871365, 1404213 ####[address] [place] [address] RBC (Bld) [#/Vol] 4.1 E12/L Low 4.3-5.9 [facility] Comment on above: Performed By: #### 1 1464181, 96628328, 2813212, 0094785, 6989140, 3079441 ####[address] [place] [address] WBC corrected for nucl RBC Auto (Bld) [#/Vol] 2.8 E9/L Low 4.0-11.0 [facility] Comment on above: Performed By: #### 1 2262957, 31028066, 3002588, 7303367, 2209990, 5188361 ####[facility] [address] [place] [address] CHEMISTRYOrdered By: SYSTEM SYSTEM on 05-09-2023 Albumin [...] for Treatmenton 04-16 Consent for Treatment [id number] E0#1.00TIFF Normal [facility] Discharge Instructionson Discharge Instructions [id number] 14#1.00TIFF Normal [facility] ED Clinical Summaryon 2023 ED Clinical Summary Normal [facility] ED Note-Nursingon 05-09-2023 ED Note-Nursing Discharge materials given, wheeled patient out. Home with family care. Normal [facility] ED Note-Physicianon 05-09-19 ED Note-Physician Normal [facility] Comment on above: Result Comment: Elec tronically Signed By: Lonnie Rios PA-C\.br\Date and Time Signed: 05/09/23 15:52 EDT\.br\Electronically Co-Signed By: Mateusz Garcia DO.br\Date and Time Co-Signed: 05/09/23 17:19 EDT ED Patient Education Noteon 05-09-2023 ED Patient Education Note Normal [facility] ED Patient Summaryon 024 ED Patient Summary Normal [facility] HEMATOLOGYOrdered By: SYSTEM SYSTEM on 05-09-2023 [...] 05-09-2023 Albumin [Mass/Vol] 4.3 g/dL Normal 3.3-5.0 [facility] Comment on above: Performed By: #### 1 5843344, 61533929, 2091334, 7018702, 7274963, 3545132 ####[facility] [address] [place] [address] Albumin/Globulin (S) [Mass conc ratio] 1.8 Normal 1.1-2.2 [facility] Comment on above: Performed By: #### 1 7948416, 87314301, 3538335, 4520647, 6793569, 9232448 ####[facility] [address] [place] [address] ALP [Catalytic activity/Vol] 51 Int._Unit/L Normal 21-98 [facility] Comment on above: Performed By: #### 1 8054737, 95566086, 0759511, 4146585, 4212411, 3001547 ####[facility] [address] [place] [address] ALT No additional P-5'-P [Catalytic activity/Vol] 15 Int._Unit/L Normal 6-46 [facility] Comment on above: Performed By: #### 1 0666641, 39086931, 7142552, 2016226, 4907626, 1477132 ####[facility] [address] [place] [address] AST [Catalytic activity/Vol] 26 Int._Unit/L Normal 5-43 [facility] Comment on above: Performed By: #### 1 9283958, 91436023, 5832250, 5038076, 6669624, 1796560 ####[facility] [address] [place] [address] Bilirubin [Mass/Vol] 0.3 mg/dL Normal 0.0-1.1 [facility] Comment on above: Performed By: #### 1 9846222, 62682787, 1890576, 2084875, 7921992, 8068567 ####[facility] [address] [place] [address] Bilirubin.direct [Mass/Vol] 0.1 mg/dL Normal 0.0-0.4 [facility] Comment on above: Performed By: #### 1 0157394, 81314615, 2122502, 0536176, 2823702, 5710419 ####[facility] [address] [place] [address] Bilirubin.indirect [Mass or moles/Vol] 0.2 mg/dL Normal 0.1-0.9 [facility] Comment on above: Performed By: #### 1 8091465, 81050050, 6039265, 5348830, 0921772, 6967624 ####[address] [address] Globulin (S) [Mass/Vol] 2.4 g/dL Normal 1.4-4.0 [facility] Comment on above: Performed By: #### 1 5627098, 25766841, 7015305, 3673626, 5027241, 6060528 ####[address] [address] Protein [Mass/Vol] 6.7 g/dL Normal 6.0-7.8 [facility] Comment on above: Performed By: #### 1 4999399, 00156904, 0901913, 6380102, 6608171, 8801323 ####[address] [place] [address] Lipase Levelon 05-09-2023 Lipase [Catalytic activity/Vol] 68 U/L High 13-58 [facility] Comment on above: Performed By: #### 1 5528649, 76067279, 7703521, 1913312, 4061692, 2410076 ####[address] [address] SEROLOGYOrdered By: Stacia Arroyo on 05-09-2023 Beta HCG ( test) Ql Negative (05/09/23 12:12 PM) Normal [facility] Man Sero eGFRon 05-09-2023 eGFR 99 mL/min/1.73 m2 Normal >=59 [facility] Comment on above: Order Comment: Order added by Discern Expert. Performed By: #### 1 9865814, 70040309, 1638163, 7446684, 4222238, 6998933 ####[facility] [address] [place] [address] CNPNon 05-07-2023 CNPN Normal [facility] ED Note-Physicianon 05-07-19 ED Note-Physician Normal [facility] Comment on above: Result Comment: Elec tronically Signed By: Justine German PA-C\.br\Date and Time Signed: 05/06/23 21:25 EDT\.br\Electronically Co-Signed By: Mateusz Garcia DO\.br\Date and Time Co-Signed: 05/07/23 07:00 EDT Amylaseon 05-06-2023 Amylase [Catalytic activity/Vol] 40 U/L Normal 25-157 [facility] Comment on above: Order Comment: pt wa s poked once, pt extremely dehydrated and would like to wait for IV start [id number] 05/06/2023 16:33:00 EDT Performed By: #### 2 659683, 7556439, 5677918, 1065370, 45939986, 0588827, 1000728 ####[facility] [address] [place] [address] BMPon 05-06-2023 Anion gap [Moles/Vol] 13 mmol/L Normal 6-16 [facility] Comment on above: Order Comment: pt wa s poked once, pt extremely dehydrated and would like to wait for IV start [id number] 05/06/2023 16:33:00 EDT Performed By: #### 2 853086, 5933109, 0236573, 8042166, 30489276, 9963511, 0304059 ####[facility] [address] [place] [address] Calcium [Mass/Vol] 9.1 mg/dL Normal 8.9-11.1 [facility] Comment on above: Order Comment: pt lillian barber poked once, pt extremely dehydrated and would like to wait for IV start [id number] 05/06/2023 16:33:00 EDT Performed By: #### 2 193845, 7693152, 1690890, 6387734, 96546576, 3591181, 4452093 ####[facility] [address] [place] [address] Chloride [Moles/Vol] 107 mmol/L Normal 101-111 [facility] Comment on above: Order Comment: pt lillian barber poked once, pt extremely dehydrated and would like to wait for IV start [id number] 05/06/2023 16:33:00 EDT Performed By: #### 2 071722, 5946879, 0007517, 7506183, 07542605, 0780157, 0743243 ####[facility] [address] [place] [address] CO2 [Moles/Vol] 22 mmol/L Normal 21-31 [facility] Comment on above: Order Comment: pt lillian barber poked once, pt extremely dehydrated and would like to wait for IV start [id number] 05/06/2023 16:33:00 EDT Performed By: #### 2 852721, 5926233, 4542148, 0233910, 91848213, 5892057, 2464424 ####[facility] [address] [place] [address] Creatinine [Mass/Vol] 0.8 mg/dL Normal 0.5-1.3 [facility] Comment on above: Order Comment: pt lillian barber poked once, pt extremely dehydrated and would like to wait for IV start [id number] 05/06/2023 16:33:00 EDT Performed By: #### 2 616790, 7387193, 9007130, 7860141, 35310848, 2041035, 6837818 ####[facility] [address] [place] [address] Glucose [Mass/Vol] 80 mg/dL Normal 55-199 [facility] Comment on above: Order Comment: pt lillian barber poked once, pt extremely dehydrated and would like to wait for IV start [id number] 05/06/2023 16:33:00 EDT Performed By: #### 2 577204, 4067168, 2384250, 5040347, 85073274, 2854007, 2369923 ####[facility] [address] [place] [address] Potassium [Moles/Vol] 3.7 mmol/L Normal 3.5-5.3 [facility] Comment on above: Order Comment: pt lillian barber poked once, pt extremely dehydrated and would like to wait for IV start [id number] 05/06/2023 16:33:00 EDT Performed By: #### 2 699087, 6145563, 2727115, 8148909, 40302346, 2021115, 2552322 ####[facility] [address] [place] [address] Sodium [Moles/Vol] 138 mmol/L Normal 135-145 [facility] Comment on above: Order Comment: pt lillian barber poked once, pt extremely dehydrated and would like to wait for IV start [id number] 05/06/2023 16:33:00 EDT Performed By: #### 2 907883, 9395098, 4566772, 6934254, 93244923, 9230859, 1598677 ####[facility] [address] [place] [address] Urea nitrogen [Mass/Vol] 10 mg/dL Normal 5-21 [facility] Comment on above: Order Comment: pt lillian barber poked once, pt extremely dehydrated and would like to wait for IV start [id number] 05/06/2023 16:33:00 EDT Performed By: #### 2 782247, 5501335, 4046338, 2047087, 31294666, 5678651, 3990726 ####[facility] [address] [place] [address] Urea nitrogen/Creatinine [Mass ratio] 12 No Units Normal 10-20 [facility] Comment on above: Order Comment: pt lillian barber poked once, pt extremely dehydrated and would like to wait for IV start [id number] 05/06/2023 16:33:00 EDT Performed By: #### 2 341662, 2711070, 7069878, 9993393, 79368375, 7709786, 2575868 ####[facility] [address] [place] [address] CBC w/ Auto Diffon 4 Basophils/100 WBC (Bld) 1.1 % Normal 0.0-2.0 [facility] Comment on above: Order Comment: pt lillian barber poked once, pt extremely dehydrated and would like to wait for IV start [id number] 05/06/2023 16:33:00 EDT Performed By: #### 2 325378, 0324249, 6910496, 2455877, 99570322, 4806715, 6315339 ####[facility] [address] [place] [address] Basophils/Leukocyte s Auto (Bld) [Pure # fraction] 0.0 E9/L Normal 0.0-0.2 [facility] Comment on above: Order Comment: pt lillian barber poked once, pt extremely dehydrated and would like to wait for IV start [id number] 05/06/2023 16:33:00 EDT Performed By: #### 2 402820, 9439279, 1920752, 9035417, 66385029, 8285964, 9432985 ####[facility] [address] [place] [address] Eosinophils (Bld) [#/Vol] 0.1 E9/L Normal 0.0-0.5 [facility] Comment on above: Order Comment: pt lillian barber poked once, pt extremely dehydrated and would like to wait for IV start [id number] 05/06/2023 16:33:00 EDT Performed By: #### 2 310614, 2278284, 6707336, 6812129, 24959726, 0215238, 5939957 ####[facility] [address] [place] [address] Eosinophils/100 WBC (Bld) 1.5 % Normal 0.0-8.0 [facility] Comment on above: Order Comment: pt wa s poked once, pt extremely dehydrated and would like to wait for IV start [id number] 05/06/2023 16:33:00 EDT Performed By: #### 2 585488, 4688742, 7021026, 8080241, 15074063, 5551337, 5619690 ####[facility] [address] [place] [address] Erythrocyte distribution width (RBC) [Ratio] 14.1 % Normal 10.9-14.2 [facility] Comment on above: Order Comment: pt wa s poked once, pt extremely dehydrated and would like to wait for IV start [id number] 05/06/2023 16:33:00 EDT Performed By: #### 2 152107, 5756570, 2253060, 2338959, 11628158, 1128255, 9047492 ####[facility] [address] [place] [address] Hematocrit (Bld) [Volume fraction] 37.9 % Normal 34.0-46.0 [facility] Comment on above: Order Comment: pt wa s poked once, pt extremely dehydrated and would like to wait for IV start [id number] 05/06/2023 16:33:00 EDT Performed By: #### 2 610077, 0855691, 6928811, 7671395, 76741365, 2835359, 3555331 ####[facility] [address] [place] [address] Hemoglobin (Bld) [Mass/Vol] 12.9 g/dL Normal 12.0-16.0 [facility] Comment on above: Order Comment: pt wa s poked once, pt extremely dehydrated and would like to wait for IV start [id number] 05/06/2023 16:33:00 EDT Performed By: #### 2 403404, 1370680, 2877936, 9617929, 38176890, 1260211, 6863587 ####[facility] [address] [place] [address] Lymphocytes (Bld) [#/Vol] 1.4 E9/L Normal 1.0-4.0 [facility] Comment on above: Order Comment: pt wa s poked once, pt extremely dehydrated and would like to wait for IV start [id number] 05/06/2023 16:33:00 EDT Performed By: #### 2 201851, 2094981, 3308094, 2420225, 84557067, 1510124, 0209438 ####[facility] [address] [place] [address] Lymphocytes/100 WBC (Bld) 33.8 % Normal 14.0-50.0 [facility] Comment on above: Order Comment: pt wa s poked once, pt extremely dehydrated and would like to wait for IV start [id number] 05/06/2023 16:33:00 EDT Performed By: #### 2 026004, 3928595, 0843589, 7157974, 61567580, 8758490, 9221835 ####[facility] [address] [place] [address] MCH (RBC) [Entitic mass] 30.3 pg Normal 27.0-34.0 [facility] Comment on above: Order Comment: pt wa s poked once, pt extremely dehydrated and would like to wait for IV start hun711 05/06/2023 16:33:00 EDT Performed By: #### 2 219526, 8948819, 5438615, 2179401, 40879526, 5653692, 8558340 ####[facility] [address] [place] [address] MCHC (RBC) [Mass/Vol] 34.1 g/dL Normal 31.4-36.0 [facility] Comment on above: Order Comment: pt wa s poked once, pt extremely dehydrated and would like to wait for IV start [id number] 05/06/2023 16:33:00 EDT Performed By: #### 2 293982, 5955094, 2352340, 8432368, 67561157, 7266755, 4688331 ####[facility] [address] [place] [address] MCV (RBC) [Entitic vol] 88.8 fL Normal 80.0-100.0 [facility] Comment on above: Order Comment: pt wa s poked once, pt extremely dehydrated and would like to wait for IV start [id number] 05/06/2023 16:33:00 EDT Performed By: #### 2 389276, 0315967, 9895537, 5588938, 75105267, 6538029, 6652423 ####[facility] [address] [place] [address] Monocytes (Bld) [#/Vol] 0.3 E9/L Normal 0.2-1.0 [facility] Comment on above: Order Comment: pt wa s poked once, pt extremely dehydrated and would like to wait for IV start [id number] 05/06/2023 16:33:00 EDT Performed By: #### 2 490589, 1810575, 1576286, 3418016, 95908792, 5045147, 4928313 ####[facility] [address] [place] [address] Neutrophils (Bld) [#/Vol] 2.3 E9/L Normal 2.0-7.5 [facility] Comment on above: Order Comment: pt wa s poked once, pt extremely dehydrated and would like to wait for IV start [id number] 05/06/2023 16:33:00 EDT Performed By: #### 2 078002, 3449183, 7449956, 8263417, 71528903, 0186092, 9769207 ####[facility] [address] [place] [address] Neutrophils/100 WBC (Bld) 56.4 % Normal 36.0-75.0 [facility] Comment on above: Order Comment: pt wa s poked once, pt extremely dehydrated and would like to wait for IV start [id number] 05/06/2023 16:33:00 EDT Performed By: #### 2 546355, 0338112, 0508599, 8409402, 07367237, 6110123, 5424362 ####[facility] [address] [place] [address] Platelet mean volume (Bld) [Entitic vol] 9.2 fL Normal 6.4-10.8 [facility] Comment on above: Order Comment: pt wa s poked once, pt extremely dehydrated and would like to wait for IV start [id number] 05/06/2023 16:33:00 EDT Performed By: #### 2 047539, 5308227, 4753186, 8011479, 35898652, 5744887, 2959463 ####[address] [address] Platelets (Bld) [#/Vol] 192.0 E9/L Normal 150.0-500.0 [facility] Comment on above: Order Comment: pt wa s poked once, pt extremely dehydrated and would like to wait for IV start [id number] 05/06/2023 16:33:00 EDT Performed By: #### 2 812112, 0760530, 4158121, 4047752, 28097397, 6883261, 8374997 ####[address] [address] RBC (Bld) [#/Vol] 4.3 E12/L Normal 4.3-5.9 [facility] Comment on above: Order Comment: pt wa s poked once, pt extremely dehydrated and would like to wait for IV start [id number] 05/06/2023 16:33:00 EDT Performed By: #### 2 666633, 0395104, 3833115, 3154828, 51190567, 6899242, 0137507 ####[address] [address] WBC corrected for nucl RBC Auto (Bld) [#/Vol] 4.1 E9/L Normal 4.0-11.0 [facility] Comment on above: Order Comment: pt wa s poked once, pt extremely dehydrated and would like to wait for IV start [id number] 05/06/2023 16:33:00 EDT Performed By: #### 2 776682, 2245130, 5163641, 2499883, 87253766, 1355216, 7095313 ####[facility] [address] [place] [address] CHEMISTRYOrdered By: SYSTEM SYSTEM on 05-06-2023 Albumin [...] for Treatmenton 04-16 Consent for Treatment [id number] 11#1.00TIFF Normal [facility] Discharge Instructionson Discharge Instructions [id number] 616#1.00TIFF Normal [facility] ED Clinical Summaryon 2023 ED Clinical Summary Normal [facility] ED Patient Education Noteon 05-06-2023 ED Patient Education Note Normal [facility] ED Patient Summaryon 024 ED Patient Summary Normal [facility] HEMATOLOGYOrdered By: SYSTEM SYSTEM on 05-06-2023 [...] 05-06-2023 Albumin [Mass/Vol] 4.6 g/dL Normal 3.3-5.0 [facility] Comment on above: Order Comment: pt wa s poked once, pt extremely dehydrated and would like to wait for IV start [id number] 05/06/2023 16:33:00 EDT Performed By: #### 2 753494, 9717269, 2395111, 5832379, 14519540, 8613258, 2056364 ####[facility] [address] [place] [address] Albumin/Globulin (S) [Mass conc ratio] 1.8 Normal 1.1-2.2 [facility] Comment on above: Order Comment: pt wa s poked once, pt extremely dehydrated and would like to wait for IV start [id number] 05/06/2023 16:33:00 EDT Performed By: #### 2 598052, 5126189, 3632594, 1486947, 84936268, 4630816, 8775885 ####[address] [address] ALP [Catalytic activity/Vol] 56 Int._Unit/L Normal 21-98 [facility] Comment on above: Order Comment: pt wa s poked once, pt extremely dehydrated and would like to wait for IV start [id number] 05/06/2023 16:33:00 EDT Performed By: #### 2 977045, 0985817, 9998234, 9840057, 13337205, 9214634, 5584437 ####[facility] [address] [place] [address] ALT No additional P-5'-P [Catalytic activity/Vol] 14 Int._Unit/L Normal 6-46 [facility] Comment on above: Order Comment: pt wa s poked once, pt extremely dehydrated and would like to wait for IV start [id number] 05/06/2023 16:33:00 EDT Performed By: #### 2 675522, 8487067, 5032870, 7030409, 44500049, 8045092, 5781523 ####[facility] [address] [place] [address] AST [Catalytic activity/Vol] 25 Int._Unit/L Normal 5-43 [facility] Comment on above: Order Comment: pt wa s poked once, pt extremely dehydrated and would like to wait for IV start [id number] 05/06/2023 16:33:00 EDT Performed By: #### 2 269090, 3686423, 6515307, 1905444, 63294674, 6580779, 3509156 ####[facility] [address] [place] [address] Bilirubin [Mass/Vol] 0.5 mg/dL Normal 0.0-1.1 [facility] Comment on above: Order Comment: pt wa s poked once, pt extremely dehydrated and would like to wait for IV start [id number] 05/06/2023 16:33:00 EDT Performed By: #### 2 517356, 7865807, 8316842, 9720022, 06500614, 4653030, 5174320 ####[facility] [address] [place] [address] Bilirubin.direct [Mass/Vol] 0.1 mg/dL Normal 0.0-0.4 [facility] Comment on above: Order Comment: pt wa s poked once, pt extremely dehydrated and would like to wait for IV start [id number] 05/06/2023 16:33:00 EDT Performed By: #### 2 053263, 1639792, 5455220, 1283836, 63062680, 6640581, 1076994 ####[facility] [address] [place] [address] Bilirubin.indirect [Mass or moles/Vol] 0.4 mg/dL Normal 0.1-0.9 [facility] Comment on above: Order Comment: pt wa s poked once, pt extremely dehydrated and would like to wait for IV start [id number] 05/06/2023 16:33:00 EDT Performed By: #### 2 563683, 7697501, 1188372, 6707224, 68528753, 0446193, 2497532 ####[facility] [address] [place] [address] Globulin (S) [Mass/Vol] 2.5 g/dL Normal 1.4-4.0 [facility] Comment on above: Order Comment: pt lillian s poked once, pt extremely dehydrated and would like to wait for IV start [id number] 05/06/2023 16:33:00 EDT Performed By: #### 2 953707, 9382697, 2343915, 2417059, 94848831, 6311834, 4205606 ####[facility] [address] [place] [address] Protein [Mass/Vol] 7.1 g/dL Normal 6.0-7.8 [facility] Comment on above: Order Comment: pt lillian s poked once, pt extremely dehydrated and would like to wait for IV start [id number] 05/06/2023 16:33:00 EDT Performed By: #### 2 429793, 5719658, 1561363, 5853404, 62973515, 0090873, 6197013 ####[facility] [address] [place] [address] Lactic Acidon 05-06-2023 Lactic Acid Lvl 0.7 mmol/L Normal 0.5-2.2 [facility] Comment on above: Order Comment: pt lillian s poked once, pt extremely dehydrated and would like to wait for IV start [id number] 05/06/2023 16:33:00 EDT Performed By: #### 2 584657, 3715778, 4357861, 5391531, 00966449, 8859218, 5314752 ####[facility] [address] [place] [address] Lipase Levelon 05-06-2023 Lipase [Catalytic activity/Vol] 62 U/L High 13-58 [facility] Comment on above: Order Comment: pt lillian s poked once, pt extremely dehydrated and would like to wait for IV start [id number] 05/06/2023 16:33:00 EDT Performed By: #### 2 680637, 3984251, 0706458, 8896988, 65578093, 2305317, 4680689 ####[facility] [address] [place] [address] Monitor Recordon 05-06-2023 Monitor Record [id number] 932#1.00TIFF Normal [facility] Monitor Record [id number] 260#1.00TIFF Normal [facility] Monitor Record [id number]#1.00TIFF Normal [facility] Monitor Record [id number] 349#1.00TIFF Normal [facility] eGFRon 05-06-2023 eGFR 99 mL/min/1.73 m2 Normal >=59 [facility] Comment on above: Order Comment: Order added by Discern Expert. Performed By: #### 2 890648, 0845914, 0280594, 5963371, 41657805, 1730929, 2234468 ####[facility] [address] [place] [address] ED Note-Physicianon 04-07-19 24 ED Note-Physician [id number] 6D#1.00TIFF [facility] Alanine aminotransferase [En zymatic activity/volume] in Serum or PlasmaOrdered By: Trace Leosimore on 04-06-2023 ALT [Catalytic activity/Vol] 21 U/L Normal 7-52 [facility] Comment on above: Performed By: #### C BC, BMP, HEPATIC, LIPASE #### [facility] [id number] [facility] Albumin [Mass/volume] in Ser um or Plasma by Bromocresol green (BCG) dye binding methoOrdered By: Trace Bullimore on 04-06-2023 Albumin BCG dye [Mass/Vol] 4.5 g/dL 3.5-5.7 [facility] Alkaline phosphatase [Enzyma tic activity/volume] in Serum or PlasmaOrdered By: Trace Bullimore on 04-06-2023 ALP [Catalytic activity/Vol] 48 U/L Normal 34-104 [facility] Comment on above: Performed By: #### C BC, BMP, HEPATIC, LIPASE #### [address] Amylase [Enzymatic activity/ volume] in Serum or PlasmaOrdered By: Trace Beverley on 04-06-2023 Amylase [Catalytic activity/Vol] 48 U/L Normal 29-103 [facility] Comment on above: Performed By: #### C BC, BMP, HEPATIC, LIPASE #### [address] Aspartate aminotransferase [ Enzymatic activity/volume] in Serum or PlasmaOrdered By: Trace Bullimore on 04-06-2023 AST [Catalytic activity/Vol] 28 U/L Normal 13-39 [facility] Comment on above: Performed By: #### C BC, BMP, HEPATIC, LIPASE #### [address] Automated basophil %Ordered By: Trace Lowery on 04-06-2023 Basophils/100 WBC (Bld) 1.0 % Normal . [facility] Comment on above: Performed By: #### C BC, BMP, HEPATIC, LIPASE #### [address] Automated basophil countOrde red By: Trace Lowery on 04-06-2023 Basophils (Bld) [#/Vol] 0.0 10*3/uL Normal 0.0-0.2 [facility] Comment on above: Result Comment: PERF ORMED BY: [place] [address] PATHOLOGIST TALENT ACQUISITION ASSISTANT BAUTISTA BAKER M.D. Performed By: #### C BC, BMP, HEPATIC, LIPASE #### [address] Automated blood monocyte cou ntOrdered By: Trace Lowery on 04-06-2023 Monocytes (Bld) [#/Vol] 0.3 10*3/uL Normal 0.0-0.8 [facility] Comment on above: Performed By: #### C BC, BMP, HEPATIC, LIPASE #### [facility] [address] Automated eosinophil %Ordere d By: Trace Jannyore on 04-06-2023 Eosinophils/100 WBC (Bld) 3.1 % Normal . [facility] Comment on above: Performed By: #### C BC, BMP, HEPATIC, LIPASE #### [address] Automated eosinophil countOr dered By: Trace Beverley on 04-06-2023 Eosinophils (Bld) [#/Vol] 0.1 10*3/uL Normal 0.0-0.45 [facility] Comment on above: Performed By: #### C BC, BMP, HEPATIC, LIPASE #### [address] Automated erythrocytes count in urine sediment (number/area)Ordered By: Trace Leosimore on 04-06-2023 RBC Auto (Urine sed) [#/Area] 1-2 [HPF] 0-4 [facility] Automated leukocytes count i n urine sediment (number/area)Ordered By: Trace Dericimore on 04-06-2023 WBC Auto (Urine sed) [#/Area] 3-4 [HPF] 0-4 [facility] Automated monocyte %Ordered By: Trace Leosneto on 04-06-2023 Monocytes/100 WBC (Bld) 6.7 % Normal . [facility] Comment on above: Performed By: #### C BC, BMP, HEPATIC, LIPASE #### [address] Automated neutrophil %Ordere d By: Trace Dericimore on 04-06-2023 Neutrophils/100 WBC (Bld) 51.6 % Normal . [facility] Comment on above: Performed By: #### C BC, BMP, HEPATIC, LIPASE #### [address] Automated urine color determ inationOrdered By: Trace Lowery on 04-06-2023 Color (U) Yellow Normal Yellow [facility] Comment on above: Order Comment: Name Collection Type:: Clean-Voided Midstream Performed By: #### C BC, BMP, HEPATIC, LIPASE #### [facility] [address] Basic Metabolic Panelon 03-19 Creatinine Clr Calc Pharmacy 98.98 Normal [facility] Comment on above: Performed By: #### C BC, BMP, HEPATIC, LIPASE #### [facility] [address] GFR/1.73 sq M.predicted MDRD (S/P/Bld) [Vol rate/Area] mL/min/{1.73_m2} Normal [facility] Comment on above: Performed By: #### C BC, BMP, HEPATIC, LIPASE #### [facility] [address] Bilirubin Test strip Ql (U)O rdered By: Trace Lowery on 04-06-2023 Bilirubin Ql (U) Negative Negative [facility] Bilirubin.direct [Mass/volum e] in Serum or PlasmaOrdered By: Trace Lowery on 04-06-2023 Bilirubin.direct [Mass/Vol] 0.10 mg/dL 0.03-0.18 [facility] Bilirubin.total [Mass/volume ] in Serum or PlasmaOrdered By: Trace Lowery on 04-06-2023 Bilirubin [Mass/Vol] 0.4 mg/dL Normal 0.3-1.0 [facility] Comment on above: Performed By: #### C BC, BMP, HEPATIC, LIPASE #### [facility] [address] [place] [address] CT abdomen pelvis w conon CT abdomen pelvis w [facility] [place] [address] CT Scan Report Signed Patient: Abbey Garcia MR#: [id number] : 1990 Acct:[id number] Age/Sex: 33 / F ADM Date: 04/06/23 Loc: ER Room: Type: [facility] ER Attending Dr: Copies to: AGA Sy [...] Maricruz Hutchinson M.D.04/06/2023 1:50 PM Dictation Location: [place] [address] Transcribed By: SULEMA 04/06/23 1350 Dictated By: Maricruz Hutchinson MD 04/06/23 1341 Signed By: 04/06/23 1350 Normal [facility] Calcium [Mass/volume] in Ser um or PlasmaOrdered By: Trace Lowery on 04-06-2023 Calcium [Mass/Vol] 9.1 mg/dL Normal 8.6-10.3 [facility] Comment on above: Performed By: #### C BC, BMP, HEPATIC, LIPASE #### [facility] [address] [place] [address] Carbon dioxide, total [Moles /volume] in Serum or PlasmaOrdered By: Trace Lowery on 04-06-2023 CO2 [Moles/Vol] 23.3 mmol/L Normal 21.0-31.0 [facility] Comment on above: Performed By: #### C BC, BMP, HEPATIC, LIPASE #### [address] Chloride [Moles/volume] in S elder or PlasmaOrdered By: Trace Leosimlaurel on 04-06-2023 Chloride [Moles/Vol] 109 mmol/L High 98-107 [facility] Comment on above: Performed By: #### C BC, BMP, HEPATIC, LIPASE #### [address] Complete Blood Count Auto Di ffon 04-06-2023 Mean Corpuscular HGB Conc 34.2 g/dL Normal 32.0-35.0 [facility] Comment on above: Performed By: #### C BC, BMP, HEPATIC, LIPASE #### [address] Monocytes/100 WBC (Bld) 15.98 % Normal 0.00-20.00 [facility] Comment on above: Performed By: #### C BC, BMP, HEPATIC, LIPASE #### [address] NRBC% 0.1 /100{WBC} Normal 0-0.5 [facility] Comment on above: Performed By: #### C BC, BMP, HEPATIC, LIPASE #### [address] Creatinine [Mass/volume] in Serum or PlasmaOrdered By: Trace Lowery on 04-06-2023 Creatinine [Mass/Vol] 0.86 mg/dL Normal 0.60-1.20 [facility] Comment on above: Performed By: #### C BC, BMP, HEPATIC, LIPASE #### [address] Dipstick and Microscopicon 0 04-06-2023 Appearance (U) Cloudy Critically abnormal Clear [facility] Comment on above: Order Comment: Name Collection Type:: Clean-Voided Midstream Performed By: #### C BC, BMP, HEPATIC, LIPASE #### [address] Bacteria,Urine None Seen Normal None Seen [facility] Comment on above: Order Comment: Name Collection Type:: Clean-Voided Midstream Performed By: #### C BC, BMP, HEPATIC, LIPASE #### [address] Bilirubin,Urine Negative Normal Negative [facility] Comment on above: Order Comment: Name Collection Type:: Clean-Voided Midstream Performed By: #### C BC, BMP, HEPATIC, LIPASE #### [address] Glucose Ql (U) Normal Normal Normal [facility] Comment on above: Order Comment: Name Collection Type:: Clean-Voided Midstream Performed By: #### C BC, BMP, HEPATIC, LIPASE #### [address] Hyaline Casts,Urine 0-8 Normal 0-8 [facility] Comment on above: Order Comment: Name Collection Type:: Clean-Voided Midstream Result Comment: PERF ORMED BY: [place] [address] PATHOLOGIST TALENT ACQUISITION ASSISTANT BAUTISTA BAKER M.D. Performed By: #### C BC, BMP, HEPATIC, LIPASE #### [address] Ketones Ql (U) Trace High Negative [facility] Comment on above: Order Comment: Name Collection Type:: Clean-Voided Midstream Performed By: #### C BC, BMP, HEPATIC, LIPASE #### [address] Leukocyte esterase Test strip Ql (U) Negative Normal Negative [facility] Comment on above: Order Comment: Name Collection Type:: Clean-Voided Midstream Performed By: #### C BC, BMP, HEPATIC, LIPASE #### [address] Nitrite,Urine Negative Normal Negative [facility] Comment on above: Order Comment: Name Collection Type:: Clean-Voided Midstream Performed By: #### C BC, BMP, HEPATIC, LIPASE #### [address] Occult Blood,Urine Negative Normal Negative [facility] Comment on above: Order Comment: Name Collection Type:: Clean-Voided Midstream Result Comment: PERF ORMED BY: [place] [address] PATHOLOGIST TALENT ACQUISITION ASSISTANT BAUTISTA BAKER M.D. Performed By: #### C BC, BMP, HEPATIC, LIPASE #### [address] Protein,Urine Negative Normal Negative [facility] Comment on above: Order Comment: Name Collection Type:: Clean-Voided Midstream Performed By: #### C BC, BMP, HEPATIC, LIPASE #### [address] RBC,Urine 1-2 Normal 0-4 [facility] Comment on above: Order Comment: Name Collection Type:: Clean-Voided Midstream Performed By: #### C BC, BMP, HEPATIC, LIPASE #### [place] [address] [place] Specificy [place],Urine 1.026 Normal 1.001-1.030 [facility] Comment on above: Order Comment: Name Collection Type:: Clean-Voided Midstream Performed By: #### C BC, BMP, HEPATIC, LIPASE #### [place] [address] [place] Squamous Epithelial Cell,Urine 3-4 High 0-2 [facility] Comment on above: Order Comment: Name Collection Type:: Clean-Voided Midstream Performed By: #### C BC, BMP, HEPATIC, LIPASE #### [address] Urobilinogen,Urine Normal Normal Normal [facility] Comment on above: Order Comment: Name Collection Type:: Clean-Voided Midstream Performed By: #### C BC, BMP, HEPATIC, LIPASE #### [address] WBC,Urine 3-4 Normal 0-4 [facility] Comment on above: Order Comment: Name Collection Type:: Clean-Voided Midstream Performed By: #### C BC, BMP, HEPATIC, LIPASE #### [address] Erythrocyte distribution wid th [Ratio] by Automated countOrdered By: Trace Lowery on 04-06-2023 Erythrocyte distribution width (RBC) [Ratio] 13.9 % Normal 11.9-15.3 [facility] Comment on above: Performed By: #### C BC, BMP, HEPATIC, LIPASE #### [address] Erythrocytes [#/volume] in B lood by Automated countOrdered By: Trace Lowery on 04-06-2023 RBC (Bld) [#/Vol] 4.17 10*6/uL Normal 3.60-5.00 [facility] Comment on above: Performed By: #### C BC, BMP, HEPATIC, LIPASE #### [address] Glucose [Mass/volume] in Ser um or PlasmaOrdered By: Trace Lowery on 04-06-2023 Glucose [Mass/Vol] 77 mg/dL Normal 70-100 [facility] Comment on above: ADA recommended refe rence rangeRandom Glucose Reference Range is dependent on time and content of last meal. Glucose of more than 200 mg/dL in a nonstressed, ambulatory subject supports the diagnosis of Diabetes Mellitus. Result Comment: [place] om Glucose Reference Range is dependent on time and content of last meal. Glucose of more than 200 mg/dL in a nonstressed, ambulatory subject supports the diagnosis of Diabetes Mellitus. ADA recommended reference range Performed By: #### C BC, BMP, HEPATIC, LIPASE #### [address] HCG ( test) IA.rapi d Ql (U)Ordered By: Trace Leosimore on 04-06-2023 HCG ( test) Ql (U) Negative [facility] HCG,Urineon 04-06-2023 Beta HCG ( test) Ql (U) Negative Normal [facility] Comment on above: Result Comment: PERF ORMED BY: [place] [address] PATHOLOGIST TALENT ACQUISITION ASSISTANT BAUTISTA BAKER M.D. Performed By: #### U HCG #### [address] Hematocrit [Volume Fraction] of Blood by Automated countOrdered By: Trace Lowery on 04-06-2023 Hematocrit (Bld) [Volume fraction] 37.4 % Normal 34.0-46.4 [facility] Comment on above: Performed By: #### C BC, BMP, HEPATIC, LIPASE #### [address] Hemoglobin [Mass/volume] in BloodOrdered By: Trace Lowery on 04-06-2023 Hemoglobin (Bld) [Mass/Vol] 12.8 g/dL Normal 11.8-15.4 [facility] Comment on above: Performed By: #### C BC, BMP, HEPATIC, LIPASE #### [address] Hepatic Panelon 04-06-2023 Albumin [Mass/Vol] 4.5 g/dL Normal 3.5-5.7 [facility] Comment on above: Performed By: #### C BC, BMP, HEPATIC, LIPASE #### [address] Bilirubin,Indirect 0.3 mg/dL Normal [facility] Comment on above: Performed By: #### C BC, BMP, HEPATIC, LIPASE #### [address] [place] [address] [place] Bilirubin.indirect [Mass/Vol] 0.10 mg/dL Normal 0.03-0.18 [facility] Comment on above: Performed By: #### C BC, BMP, HEPATIC, LIPASE #### [facility] [address] Ketones Auto test strip (U) [Mass/Vol]Ordered By: Trace Lowery on 04-06-2023 Ketones (U) [Mass/Vol] Trace Negative [facility] - UrinalysisOrder ed By: Trace Lowery on 04-06-2023 Hyaline casts LM Ql (Urine sed) 0-8 [LPF] 0-8 [facility] Leukocytes [#/volume] correc darvin for nucleated erythrocytes in Blood by Automated counOrdered By: Trace Lowery on 04-06-2023 WBC corrected for nucl RBC Auto (Bld) [#/Vol] 3.8 10*3/uL 3.8-11.6 [facility] Leukocytes [#/volume] in Blo od by Automated countOrdered By: Trace Lowery on 04-06-2023 WBC (Bld) [#/Vol] 3.8 10*3/uL Normal 3.8-11.6 [facility] Comment on above: Performed By: #### C BC, BMP, HEPATIC, LIPASE #### [facility] [address] [place] [address] Lipase [Enzymatic activity/v olume] in Serum or PlasmaOrdered By: Trace Lowery on 04-06-2023 Lipase [Catalytic activity/Vol] 86.0 U/L High 11.0-82.0 [facility] Comment on above: Result Comment: PERF ORMED BY: [place] [address] PATHOLOGIST TALENT ACQUISITION ASSISTANT BAUTISTA BAKER M.D. Performed By: #### C BC, BMP, HEPATIC, LIPASE #### [facility] [address] [place] [address] Lymphocytes [#/volume] in Bl ood by Automated countOrdered By: Trace Lowery on 04-06-2023 Lymphocytes (Bld) [#/Vol] 1.4 10*3/uL Normal 1.00-4.8 [facility] Comment on above: Performed By: #### C BC, BMP, HEPATIC, LIPASE #### [facility] [address] Lymphocytes/100 leukocytes i n Blood by Automated countOrdered By: Trace Bullimore on 04-06-2023 Lymphocytes/100 WBC (Bld) 37.6 % Normal . [facility] Comment on above: Performed By: #### C BC, BMP, HEPATIC, LIPASE #### [facility] [address] [place] [address] MCH [Entitic mass] by Automa darvin countOrdered By: Trace Bullimore on 04-06-2023 MCH (RBC) [Entitic mass] 30.6 pg Normal 24.7-34.3 [facility] Comment on above: Performed By: #### C BC, BMP, HEPATIC, LIPASE #### [address] MCHC Auto (RBC) [Mass/Vol]Or dered By: Trace Bullimore on 04-06-2023 MCHC (RBC) [Mass/Vol] 34.2 g/dL 32.0-35.0 [facility] MCV [Entitic volume] by Auto mated countOrdered By: Trace Bullimore on 04-06-2023 MCV (RBC) [Entitic vol] 89.7 fL Normal 80-100 [facility] Comment on above: Performed By: #### C BC, BMP, HEPATIC, LIPASE #### [facility] [address] [place] [address] Monocyte distribution width [Entitic volume] in Blood by AutomatedOrdered By: Trace Bullimore on 04-06-2023 Monocyte distribution width Auto (Bld) [Entitic vol] 15.98 % 0.00-20.00 [facility] Neutrophils [#/volume] in Bl ood by Automated countOrdered By: Trace Bullimore on 04-06-2023 Neutrophils (Bld) [#/Vol] 2.0 10*3/uL Normal 1.8-7.7 [facility] Comment on above: Performed By: #### C BC, BMP, HEPATIC, LIPASE #### [facility] [address] Nitrite Test strip Ql (U)Ord ered By: Trace Lowery on 04-06-2023 Nitrite Ql (U) Negative Negative [facility] No Panel InformationOrdered By: Trace Lowery on 04-06-2023 Estimated GFR (CKD-EPI) > 60.0 mL/Min [facility] Creatinine Clearance (Chem 98.98 [facility] Nucleated erythrocytes [Pres ence] in Blood by Automated countOrdered By: Trace Lowery on 04-06-2023 Nucleated RBC Auto Ql (Bld) 0.1 /100{WBC} 0-0.5 [facility] Platelet mean volume [Entiti c volume] in Blood by Automated countOrdered By: Trace Lowery on 04-06-2023 Platelet mean volume (Bld) [Entitic vol] 9.7 fL Normal 6.3-10.7 [facility] Comment on above: Performed By: #### C BC, BMP, HEPATIC, LIPASE #### [facility] [address] [place] [address] Platelets [#/volume] in Bloo d by Automated countOrdered By: Trace Lowery on 04-06-2023 Platelets (Bld) [#/Vol] 210 10*3/uL Normal 150-450 [facility] Comment on above: Performed By: #### C BC, BMP, HEPATIC, LIPASE #### [facility] [address] [place] [address] [place] Potassium [Moles/volume] in Serum or PlasmaOrdered By: Trace Lowery on 04-06-2023 Potassium [Moles/Vol] 3.7 mmol/L Normal 3.5-5.1 [facility] Comment on above: Performed By: #### C BC, BMP, HEPATIC, LIPASE #### [facility] [address] Protein Auto test strip (U) [Mass/Vol]Ordered By: Trace Lowery on 04-06-2023 Protein (U) [Mass/Vol] Negative Negative [facility] Protein [Mass/volume] in Ser um or PlasmaOrdered By: Trace Bullimore on 04-06-2023 Protein [Mass/Vol] 7.1 g/dL Normal 6.4-8.9 [facility] Comment on above: Performed By: #### C BC, BMP, HEPATIC, LIPASE #### [address] Serum globulin measurement b y calculation (mass/volume)Ordered By: Trace Bullimore on 04-06-2023 Globulin (S) [Mass/Vol] 2.6 g/dL Normal [facility] Comment on above: Performed By: #### C BC, BMP, HEPATIC, LIPASE #### [address] Serum or plasma albumin/glob ulin mass ratioOrdered By: Trace Bullimore on 04-06-2023 Albumin/Globulin [Mass ratio] 1.7 {ratio} Normal [facility] Comment on above: Performed By: #### C BC, BMP, HEPATIC, LIPASE #### [address] Serum or plasma anion gap de terminationOrdered By: Trace Bullimore on 04-06-2023 Anion gap [Moles/Vol] 12.4 mmol/L Normal 6.0-15.0 [facility] Comment on above: Performed By: #### C BC, BMP, HEPATIC, LIPASE #### [address] Serum or plasma non-glucuron idated bilirubin measurement (mass/volume)Ordered By: Trace Bullimore on 04-06-2023 Bilirubin.indirect [Mass/Vol] 0.3 mg/dL [facility] Sodium [Moles/volume] in Ser um or PlasmaOrdered By: Trace Bullimore on 04-06-2023 Sodium [Moles/Vol] 141 mmol/L Normal 136-145 [facility] Comment on above: Performed By: #### C BC, BMP, HEPATIC, LIPASE #### [facility] [address] [place] [id number] [place] Specific gravity Auto test s trip (U) [Rel density]Ordered By: Trace Lowery on 04-06-2023 Specific gravity (U) [Rel density] 1.026 1.001-1.030 [facility] Squamous epithelial cells de tection in urine sediment by light microscopyOrdered By: Trace Lowery on 04-06-2023 Epithelial cells.squamous LM Ql (Urine sed) 3-4 [HPF] 0-2 [facility] Urea nitrogen [Mass/volume] in Serum or PlasmaOrdered By: rTace Lowery on 04-06-2023 Urea nitrogen [Mass/Vol] 10 mg/dL Normal 7-25 [facility] Comment on above: Performed By: #### C BC, BMP, HEPATIC, LIPASE #### [address] Urine bacteria detection by automated methodOrdered By: Trace Lowery on 04-06-2023 Bacteria Auto Ql (U) None seen None Seen [facility] Urine clarity by refractomet ry automatedOrdered By: Trace Lowery on 04-06-2023 Clarity Refractometry automated (U) Cloudy Clear [facility] Urine glucose measurement by automated test strip (mass/volume)Ordered By: Trace Lowery on 04-06-2023 Glucose Auto test strip (U) [Mass/Vol] Normal mg/dL Normal [facility] Urine hemoglobin detection b y automated test stripOrdered By: Trace Lowery on 04-06-2023 Hemoglobin Auto test strip Ql (U) Negative Negative [facility] Urine leukocyte esterase det ection by automated test stripOrdered By: Trace Lowery on 04-06-2023 Leukocyte esterase Auto test strip Ql (U) Negative Negative [facility] Urine pH measurement by auto mated test stripOrdered By: Trace Lowery on 04-06-2023 pH (U) 7.5 [pH] Normal 5.0-9.0 [facility] Comment on above: Order Comment: Name Collection Type:: Clean-Voided Midstream Performed By: #### C BC, BMP, HEPATIC, LIPASE #### [facility] [address] [place] [id number] [facility] Urobilinogen Auto test strip (U) [Mass/Vol]Ordered By: Trace Lowery on 04-06-2023 Urobilinogen (U) [Mass/Vol] Normal mg/dL Normal [facility] BMPon 04-02-2023 Anion gap [Moles/Vol] 10 mmol/L Normal - [facility] Comment on above: Performed By: #### 2 249922, 4289531, 3457190, 61007198, 48341951, 65669009, 1814916, 31260992 ####[facility] [address] [place] [address] BUN/Creat Ratio 14 No Units Normal - [facility] Comment on above: Performed By: #### 2 006682, 7423777, 6579277, 13382961, 94297323, 28626775, 4886032, 34769907 ####[facility] [address] [place] [address] Calcium [Mass/Vol] 8.4 mg/dL Low 8.9-11.1 [facility] Comment on above: Performed By: #### 2 388516, 3424080, 6753858, 08196118, 66808496, 28914677, 9373208, 71485100 ####[facility] [address] [place] [address] Chloride [Moles/Vol] 111 mmol/L Normal 101-111 [facility] Comment on above: Performed By: #### 2 245337, 4385099, 3535437, 96364199, 54608167, 08885229, 0104783, 57533905 ####[facility] [address] [place] [address] CO2 [Moles/Vol] 21 mmol/L Normal 21-31 [facility] Comment on above: Performed By: #### 2 658014, 0696285, 8414845, 62490871, 56758830, 33406850, 4577249, 50779965 ####[facility] [address] [place] [address] Creatinine [Mass/Vol] 0.7 mg/dL Normal 0.5-1.3 [facility] Comment on above: Performed By: #### 2 002720, 1330466, 2537782, 57248830, 00358533, 67857266, 8020231, 69643356 ####[facility] [address] [place] [address] Glucose [Mass/Vol] 86 mg/dL Normal 55-199 [facility] Comment on above: Performed By: #### 2 272462, 6373436, 4334634, 95804268, 48937598, 70200474, 0594750, 92636280 ####[facility] [address] [place] [address] Potassium [Moles/Vol] 3.9 mmol/L Normal 3.5-5.3 [facility] Comment on above: Performed By: #### 2 237893, 9339470, 4429069, 63197640, 91244464, 15467955, 9645124, 68701388 ####[facility] [address] [place] [address] Sodium [Moles/Vol] 138 mmol/L Normal 135-145 [facility] Comment on above: Performed By: #### 2 224974, 6737076, 5666849, 16477562, 87154468, 03101617, 4588787, 01725862 ####[facility] [address] [place] [address] Urea nitrogen [Mass/Vol] 10 mg/dL Normal 5-21 [facility] Comment on above: Performed By: #### 2 816531, 7102790, 3695512, 02062749, 66908144, 81106721, 1907446, 63260940 ####[facility] [address] [place] [address] BNPon 04-02-2023 Int Ctr BNP Pass Normal [facility] Comment on above: Order Comment: 2nd d raw rejected due to clotted speciment. Phlebotomists notified of redraw by message. [facility] 04/02/2023 12:28:38 EST Performed By: #### 2 929736, 8459154, 1447106, 49213748, 43723308, 06378757, 4062046, 99959920 ####[facility] [address] [place] [address] Natriuretic peptide B (Bld) [Mass/Vol] 25 pg/mL Normal 5-80 [facility] Comment on above: Order Comment: 2nd d raw rejected due to clotted speciment. Phlebotomists notified of redraw by message. [facility] 04/02/2023 12:28:38 EST Performed By: #### 2 254453, 6375372, 5900094, 88087240, 33772184, 53185634, 4584090, 04936934 ####[facility] [address] [place] [address] CBC w/ Auto Diffon 4 Basophil Absolute 0.0 E9/L Normal 0.0-0.2 [facility] Comment on above: Order Comment: speci men rejected due to clot. Phlebotomists notified by message. [facility] 04/02/2023 11:56:19 EST\2nd draw rejected due to clot. Phlebotomists notified by message. [facility] 04/02/2023 12:27:56 EST Performed By: #### 2 966899, 6879493, 5447252, 52057118, 94807850, 05445470, 7532222, 74237085 ####[facility] [address] [place] [address] Basophils/100 WBC (Bld) 0.8 % Normal 0.0-2.0 [facility] Comment on above: Order Comment: speci men rejected due to clot. Phlebotomists notified by message. [facility] 04/02/2023 11:56:19 EST\2nd draw rejected due to clot. Phlebotomists notified by message. [facility] 04/02/2023 12:27:56 EST Performed By: #### 2 344555, 1548184, 1429947, 56286918, 27442895, 79529768, 8818395, 58981210 ####[facility] [address] [place] [address] Eos Absolute 0.2 E9/L Normal 0.0-0.5 [facility] Comment on above: Order Comment: speci men rejected due to clot. Phlebotomists notified by message. [facility] 04/02/2023 11:56:19 EST\2nd draw rejected due to clot. Phlebotomists notified by message. [facility] 04/02/2023 12:27:56 EST Performed By: #### 2 079266, 7145479, 0280478, 01014272, 88911649, 87146866, 8732023, 56620318 ####[facility] [address] [place] [address] Eosinophils/100 WBC (Bld) 3.1 % Normal 0.0-8.0 [facility] Comment on above: Order Comment: speci men rejected due to clot. Phlebotomists notified by message. [facility] 04/02/2023 11:56:19 EST\2nd draw rejected due to clot. Phlebotomists notified by message. [facility] 04/02/2023 12:27:56 EST Performed By: #### 2 141618, 0487442, 3246503, 24475105, 04095938, 04036735, 5217376, 35941981 ####[facility] [address] [place] [address] Erythrocyte distribution width (RBC) [Ratio] 14.0 % Normal 10.9-14.2 [facility] Comment on above: Order Comment: speci men rejected due to clot. Phlebotomists notified by message. [facility] 04/02/2023 11:56:19 EST\2nd draw rejected due to clot. Phlebotomists notified by message. [facility] 04/02/2023 12:27:56 EST Performed By: #### 2 898469, 9215450, 7451515, 13508629, 24312159, 68102487, 9115131, 03145779 ####[facility] [address] [place] [address] Hematocrit (Bld) [Volume fraction] 38.0 % Normal 34.0-46.0 [facility] Comment on above: Order Comment: speci men rejected due to clot. Phlebotomists notified by message. [facility] 04/02/2023 11:56:19 EST\2nd draw rejected due to clot. Phlebotomists notified by message. [facility] 04/02/2023 12:27:56 EST Performed By: #### 2 496528, 4007968, 8870218, 08957797, 66117771, 63481391, 4651440, 33254156 ####[facility] [address] [place] [address] Hemoglobin (Bld) [Mass/Vol] 12.8 g/dL Normal 12.0-16.0 [facility] Comment on above: Order Comment: speci men rejected due to clot. Phlebotomists notified by message. [facility] 04/02/2023 11:56:19 EST\2nd draw rejected due to clot. Phlebotomists notified by message. [facility] 04/02/2023 12:27:56 EST Performed By: #### 2 230993, 0797910, 7139280, 93354773, 69806773, 84798390, 6906906, 53736588 ####[facility] [address] [place] [address] Lymph Absolute 1.8 E9/L Normal 1.0-4.0 [facility] Comment on above: Order Comment: speci men rejected due to clot. Phlebotomists notified by message. [facility] 04/02/2023 11:56:19 EST\2nd draw rejected due to clot. Phlebotomists notified by message. [facility] 04/02/2023 12:27:56 EST Performed By: #### 2 357717, 8984215, 6730246, 22142329, 00583530, 15007064, 5685785, 38445396 ####[facility] [address] [place] [address] Lymphocytes/100 WBC (Bld) 34.1 % Normal 14.0-50.0 [facility] Comment on above: Order Comment: speci men rejected due to clot. Phlebotomists notified by message. [facility] 04/02/2023 11:56:19 EST\2nd draw rejected due to clot. Phlebotomists notified by message. [facility] 04/02/2023 12:27:56 EST Performed By: #### 2 843631, 4109658, 6415472, 08981257, 75900832, 22743889, 7121041, 91072844 ####[facility] [address] [place] [address] MCH (RBC) [Entitic mass] 29.8 pg Normal 27.0-34.0 [facility] Comment on above: Order Comment: speci men rejected due to clot. Phlebotomists notified by message. [facility] 04/02/2023 11:56:19 EST\2nd draw rejected due to clot. Phlebotomists notified by message. [facility] 04/02/2023 12:27:56 EST Performed By: #### 2 332446, 9915001, 8396214, 38492212, 32870932, 84678415, 9331565, 48006262 ####[facility] [address] [place] [address] MCHC (RBC) [Mass/Vol] 33.5 g/dL Normal 31.4-36.0 [facility] Comment on above: Order Comment: speci men rejected due to clot. Phlebotomists notified by message. [facility] 04/02/2023 11:56:19 EST\2nd draw rejected due to clot. Phlebotomists notified by message. [facility] 04/02/2023 12:27:56 EST Performed By: #### 2 414676, 3931808, 1146629, 91174209, 59814659, 87984282, 4424282, 02722143 ####[facility] [address] [place] [address] MCV (RBC) [Entitic vol] 88.9 fL Normal 80.0-100.0 [facility] Comment on above: Order Comment: speci men rejected due to clot. Phlebotomists notified by message. [facility] 04/02/2023 11:56:19 EST\2nd draw rejected due to clot. Phlebotomists notified by message. [facility] 04/02/2023 12:27:56 EST Performed By: #### 2 091285, 4012174, 3172047, 31224943, 62488716, 92769712, 9657090, 53926423 ####[facility] [address] [place] [address] Orange Absolute 0.4 E9/L Normal 0.2-1.0 [facility] Comment on above: Order Comment: speci men rejected due to clot. Phlebotomists notified by message. [facility] 04/02/2023 11:56:19 EST\2nd draw rejected due to clot. Phlebotomists notified by message. [facility] 04/02/2023 12:27:56 EST Performed By: #### 2 069201, 8122524, 7194212, 57641049, 07171049, 05121455, 3691612, 42684244 ####[facility] [address] [place] [address] Monocytes/100 WBC (Bld) 7.4 % Normal 4.0-14.0 [facility] Comment on above: Order Comment: speci men rejected due to clot. Phlebotomists notified by message. [facility] 04/02/2023 11:56:19 EST\2nd draw rejected due to clot. Phlebotomists notified by message. [facility] 04/02/2023 12:27:56 EST Performed By: #### 2 918428, 2244958, 8863756, 24478205, 39818440, 02366759, 6914504, 85070252 ####[facility] [address] [place] [address] Neutro Absolute 2.9 E9/L Normal 2.0-7.5 [facility] Comment on above: Order Comment: speci men rejected due to clot. Phlebotomists notified by message. [facility] 04/02/2023 11:56:19 EST\2nd draw rejected due to clot. Phlebotomists notified by message. [facility] 04/02/2023 12:27:56 EST Performed By: #### 2 249348, 7469012, 9020498, 45092004, 34409279, 49537027, 7498794, 24772301 ####[facility] [address] [place] [address] Neutro Auto 54.6 % Normal 36.0-75.0 [facility] Comment on above: Order Comment: speci men rejected due to clot. Phlebotomists notified by message. [facility] 04/02/2023 11:56:19 EST\2nd draw rejected due to clot. Phlebotomists notified by message. [facility] 04/02/2023 12:27:56 EST Performed By: #### 2 735086, 5877577, 9763351, 46562888, 00804187, 47956353, 4428739, 58497032 ####[facility] [address] [place] [address] Platelet 204.0 E9/L Normal 150.0-500.0 [facility] Comment on above: Order Comment: speci men rejected due to clot. Phlebotomists notified by message. [facility] 04/02/2023 11:56:19 EST\2nd draw rejected due to clot. Phlebotomists notified by message. [facility] 04/02/2023 12:27:56 EST Result Comment: Veri fied with slide review Performed By: #### 2 850266, 4834859, 1151298, 00946984, 73860859, 23300377, 0940388, 28943558 ####[facility] [address] [place] [address] Platelet mean volume (Bld) [Entitic vol] 9.8 fL Normal 6.4-10.8 [facility] Comment on above: Order Comment: speci men rejected due to clot. Phlebotomists notified by message. [facility] 04/02/2023 11:56:19 EST\2nd draw rejected due to clot. Phlebotomists notified by message. [facility] 04/02/2023 12:27:56 EST Performed By: #### 2 674819, 6627641, 2972852, 97725559, 74153271, 23931948, 7764570, 93609304 ####[facility] [address] [place] [address] RBC 4.3 E12/L Normal 4.3-5.9 [facility] Comment on above: Order Comment: speci men rejected due to clot. Phlebotomists notified by message. [facility] 04/02/2023 11:56:19 EST\2nd draw rejected due to clot. Phlebotomists notified by message. [facility] 04/02/2023 12:27:56 EST Performed By: #### 2 196021, 8115710, 8733500, 11231026, 43128308, 43516380, 3044636, 44858003 ####[facility] [address] [place] [address] WBC 5.3 E9/L Normal 4.0-11.0 [facility] Comment on above: Order Comment: speci men rejected due to clot. Phlebotomists notified by message. [facility] 04/02/2023 11:56:19 EST\2nd draw rejected due to clot. Phlebotomists notified by message. [facility] 04/02/2023 12:27:56 EST Performed By: #### 2 398036, 8590121, 1675439, 28270369, 82750493, 11550562, 1871849, 27393206 ####[facility] [address] [place] [address] CHEMISTRYOrdered By: SYSTEM SYSTEM on 04-02-2023 Troponin [...] Sensitivity Troponin I Instructions For Use, Alan Strathmore, September 2017) Albumin [Mass/Vol] 3.9 g/dL Normal [...] Sensitivity Troponin I Instructions For Use, Alan Strathmore, September 2017) Anion gap [Moles/Vol] 10 mmol/L [...] 25 pg/mL Normal 5 - 80 pg/mL [facility] COAGULATIONOrdered By: Gladys Arroyo on 04-02-2023 aPTT Coag (PPP) [Time] 33.2 s Normal 25.1 - 36.5 second(s) [facility] Auto Coag Comment on above: Interpretive Data: [...] the same coagulation reagent and instrumentation as [facility]. Currently there are no coagulation studies available worldwide for children to 14 days, and no normal ranges. Heparin therapeutic range (represented by Anti-Factor Xa activity of 0.2 - 0.4 U/mL) corresponds to PTT of 56.6 - 109.0 sec. Fibrin D-dimer FEU (PPP) [Mass/Vol] 541 ng/mL FEU Invalid Interpretation Code 215 - 500 ng/mL FEU [facility] Auto Coag Comment on above: Result Comment: [...] [Relative time] 1.14 {INR} Invalid Interpretation Code [facility] Auto Coag Comment on above: Interpretive Data: I NR results are specifically intended to assess patients stabilized on long-term Anticoagulation therapy suggested INR s Less Intensive Anticoagulation 2.0 3.0 Conventional Range 3.0 4.5 PT Coag (PPP) [Time] 12.7 s High 9.4 - 12.5 second(s) [facility] Auto Coag Comment on above: Interpretive Data: [...] the same coagulation reagent and instrumentation as [facility]. Currently there are no coagulation studies available worldwide for children to 14 days, and no normal ranges. CTA Abdomen and Pelvison CTA Abdomen and Pelvis Normal [facility] CTA Cheston 04-02-2023 CTA Chest Normal [facility] Consent for Treatmenton 03-18 Consent for Treatment [id number] B5#1.00TIFF Normal [facility] D-Dimeron 04-02-2023 Fibrin D-dimer FEU (PPP) [Mass/Vol] 541 [id number] Abnormal 215-500 [facility] Comment on above: Order Comment: speci [...] skin infectionsLiver cirrhosisPregnancy Performed By: #### 2 226201, 3709403, 9064378, 39215754, 42217161, 10293318, 8022701, 13076614 ####[facility] [address] [place] [address] Discharge Instructionson Discharge Instructions [id number] 98#1.00TIFF Normal [facility] ED Clinical Summaryon 2023 ED Clinical Summary Normal [facility] ED Note-Physicianon 04-02-19 24 ED Note-Physician Normal [facility] Comment on above: Result Comment: Elec tronically Signed By: Jose Ramon Martinez, Ashutosh Coker\Date and Time Signed: 04/02/23 17:20 EST ED Patient Education Noteon 04-02-2023 ED Patient Education Note Normal [facility] ED Patient Summaryon 024 ED Patient Summary Normal [facility] Free T4on 04-02-2023 Free T4 [Mass/Vol] 0.75 ng/dL Normal 0.58-1.64 [facility] Comment on above: Performed By: #### 2 322040, 26663474, 9037641, 9957758 ####[facility] [address] [place] [address] HEMATOLOGYOrdered By: SYSTEM SYSTEM on 04-02-2023 Basophil [...] Normal 80.0 - 100.0 fL Remisol Heme Orange Absolute 0.4 E9/L Normal 0.2 - 1.0 [...] 04-02-2023 Albumin [Mass/Vol] 3.9 g/dL Normal 3.3-5.0 [facility] Comment on above: Performed By: #### 2 945900, 71322959, 3016177, 9290016 ####[facility] [address] [place] [address] Albumin/Globulin [Mass ratio] 1.6 {ratio} Normal 1.1-2.2 [facility] Comment on above: Performed By: #### 2 000311, 08744194, 8235047, 0286869 ####[facility] [address] [place] [address] Alk Phos 50 Int._Unit/L Normal 21-98 [facility] Comment on above: Performed By: #### 2 492110, 02086083, 9244766, 8879942 ####[facility] [address] [place] [address] ALT 27 Int._Unit/L Normal 6-46 [facility] Comment on above: Performed By: #### 2 184217, 72631466, 0206565, 7569970 ####[facility] [address] [place] [address] AST 36 Int._Unit/L Normal 5-43 [facility] Comment on above: Performed By: #### 2 072699, 54320892, 2059898, 6670786 ####[facility] [address] [place] [address] Bili Direct 0.0 mg/dL Normal 0.0-0.4 [facility] Comment on above: Performed By: #### 2 243373, 34849148, 6078344, 1315254 ####[facility] [address] [place] [address] Bili Indirect 0.3 mg/dL Normal 0.1-0.9 [facility] Comment on above: Performed By: #### 2 430451, 43049579, 8018070, 7482176 ####[facility] [address] [place] [address] Bili Total 0.3 mg/dL Normal 0.0-1.1 [facility] Comment on above: Performed By: #### 2 817878, 62690680, 9166338, 7484364 ####[facility] [address] [place] [address] Globulin (S) [Mass/Vol] 2.4 g/dL Normal 1.4-4.0 [facility] Comment on above: Performed By: #### 2 940699, 37425390, 3230149, 2952372 ####[facility] [address] [place] [address] Protein [Mass/Vol] 6.3 g/dL Normal 6.0-7.8 [facility] Comment on above: Performed By: #### 2 846816, 36037150, 1959668, 0079753 ####[facility] [address] [place] [address] Lipase Levelon 04-02-2023 Lipase Lvl 124 unit/L High 13-58 [facility] Comment on above: Performed By: #### 2 138662, 15367791, 7563215, 0603893 ####[facility] [address] [place] [address] Magnesiumon 04-02-2023 Magnesium [Mass/Vol] 1.9 mg/dL Normal 1.3-2.4 [facility] Comment on above: Performed By: #### 2 955828, 9174392, 5247031, 71921111, 45456650, 16220825, 1333046, 57510176 ####[facility] [address] [place] [address] PT & PTTon 04-02-2023 aPTT Coag (PPP) [Time] 33.2 second(s) Normal 25.1-36.5 [facility] Comment on above: Order Comment: speci men rejected due to clot. phlebotomists notified of redraw by message. [facility] 04/02/2023 12:33:39 EST Result Comment: Para [...] the same coagulation reagent and instrumentation as [facility]. Currently there are no coagulation studies available worldwide for children to 14 days, and no normal ranges. Heparin therapeutic range (represented by Anti-Factor Xa activity of 0.2 - 0.4 U/mL) corresponds to PTT of 56.6 - 109.0 sec. Performed By: #### 2 099457, 6505472, 9428761, 50399465, 74138912, 45213556, 8036965, 80654590 ####[facility] [address] [place] [address] INR Coag (PPP) [Relative time] 1.14 {INR} Invalid Interpretation Code [facility] Comment on above: Order Comment: speci men rejected due to clot. phlebotomists notified of redraw by message. [facility] 04/02/2023 12:33:39 EST Result Comment: INR results are specifically intended to assess patients stabilized on long-term Anticoagulation therapy suggested INR?s ?Less Intensive Anticoagulation? 2.0 ? 3.0Conventional Range 3.0 ? 4.5 Performed By: #### 2 632493, 1737902, 5550587, 46142626, 09524314, 47109400, 0575810, 09570910 ####[facility] [address] [place] [address] PT Coag (PPP) [Time] 12.7 second(s) High 9.4-12.5 [facility] Comment on above: Order Comment: speci men rejected due to clot. phlebotomists notified of redraw by message. [facility] 04/02/2023 12:33:39 EST Result Comment: 15 [...] the same coagulation reagent and instrumentation as [facility]. Currently there are no coagulation studies available worldwide for children to 14 days, and no normal ranges. Performed By: #### 2 835124, 0067163, 8862422, 43099251, 36509133, 65162222, 2966146, 80912345 ####[facility] [address] [place] [address] Pre-Arrival Noteon Pre-Arrival Note Normal [facility] Progress Note-Nurseon 2023 Progress Note-Nurse CT called and verbalized IV infiltrated when attempting to flush. IV removed per this nurse and attempted to place IV with unsuccessful attempts. Dr. Albright and Sabina, RN aware. Normal [facility] TSH With T4fr Reflexon 04-02 TSH Qn 0.11 m[IU]/L Low 0.34-5.60 [facility] Comment on above: Performed By: #### 2 647763, 16059947, 6652770, 3908571 ####[facility] [address] [place] [address] Troponin 0 Hr.on 04-02-2023 Troponin 2.40 pg/mL Low 10.10-27.10 [facility] Comment on above: Result Comment: The 95% CI (Confidence Interval) PPV (Positive Predictive Value) for myocardial infarction in females is 38 pg/mL, in males 51 pg/mL. The results should be used in conjunction with clinical conditions of myocardial infarction.(Access High Sensitivity Troponin I Instructions For Use, [employer], September 2017) Performed By: #### 2 246545, 3530051, 8830537, 58975929, 10319649, 23819721, 6034716, 35369739 ####[facility] [address] [place] [address] Troponin 3 Hr.on 04-02-2023 Troponin I.cardiac [Mass/Vol] ng/mL Low 10.10-27.10 [facility] Comment on above: Result Comment: The 95% CI (Confidence Interval) PPV (Positive Predictive Value) for myocardial infarction in females is 38 pg/mL, in males 51 pg/mL. The results should be used in conjunction with clinical conditions of myocardial infarction.(Access High Sensitivity Troponin I Instructions For Use, [employer], September 2017) Performed By: #### 1 9679089 ####[facility] [address] [place] [address] XR Chest Single Viewon 04-02 XR Chest Single View Normal [facility] eGFRon 04-02-2023 eGFR 116 mL/min/1.73 m2 Normal >=59 [facility] Comment on above: Order Comment: Order added by Discern Expert. Performed By: #### 2 857176, 7223714, 5079056, 52143745, 11703263, 61774568, 5441057, 96146054 ####[facility] [address] [place] [address] Home Health Recordson 2023 Home Health Records [id number] F2#1.00TIFF Normal [facility] Ambulatory Visit Summaryon 0 03-24-2023 Ambulatory Visit Summary Normal [facility] Auth for Release of Medical Recordson 03-24-2023 Auth for Release of Medical Records [id number] Normal [facility] Family Medicine Office/Clini c Noteon 03-24-2023 Family Medicine Office/Clinic Note Normal [facility] Comment on above: Result Comment: Elec tronically Signed By: Jaquan Paula\.br\Date and Time Signed: 03/24/23 15:20 EST CBC panel Auto (Bld)on 03-19 Erythrocyte distribution width (RBC) [Ratio] 12.1 % 11.5 - 14.5 % [facility] Hematocrit (Bld) [Volume fraction] 33.7 % Low 36.0 - 46.0 % [facility] Hemoglobin (Bld) [Mass/Vol] 11.9 g/dL Low 12.0 - 16.0 g/dL [facility] Interpretation and review of laboratory results Abnormal [facility] MCH (RBC) [Entitic mass] 30.1 pg 26.0 - 34.0 pg [facility] MCHC (RBC) [Mass/Vol] 35.3 g/dL 32.0 - 36.0 g/dL [facility] MCV (RBC) [Entitic vol] 85 fL 80 - 100 fL [facility] Nucleated RBC/100 WBC (Bld) [Ratio] 0.0 % [facility] Platelets (Bld) [#/Vol] 285 10*3/uL [facility] RBC (Bld) [#/Vol] 3.96 10*6/uL [facility] WBC (Bld) [#/Vol] 4.3 10*3/uL Low [facility] Erythrocyte distribution width (RBC) [Ratio] 12.1 % Normal 11.5-14.5 [facility] Comment on above: Performed By: #### V ERAB #### MELISA Galvan ([id number]) [facility] ([facility]) [address] [place] [address] [place] Hematocrit (Bld) [Volume fraction] 33.7 % Low 36.0-46.0 [facility] Comment on above: Performed By: #### V ERAB #### MELISA Galvan ([id number]) [facility] ([facility]) [address] [place] [address] [place] Hemoglobin (Bld) [Mass/Vol] 11.9 g/dL Low 12.0-16.0 [facility] Comment on above: Performed By: #### V ERAB #### MELISA Galvan ([id number]) [facility] ([facility]) [address] [place] [address] [place] MCH (RBC) [Entitic mass] 30.1 pg Normal 26.0-34.0 [facility] Comment on above: Performed By: #### V ERAB #### MELISA Galvan () [facility] ([facility]) [address] [place] [address] [place] MCHC (RBC) [Mass/Vol] 35.3 g/dL Normal 32.0-36.0 [facility] Comment on above: Performed By: #### V ERAB #### MELISA Galvan ([id number]) [facility] ([facility]) [address] [place] [address] [place] MCV (RBC) [Entitic vol] 85 fL Normal 80-100 [facility] Comment on above: Performed By: #### V ERAB #### MELISA Galvan ([id number]) [facility] ([facility]) [address] [place] [address] [place] Nucleated RBC/100 WBC (Bld) [Ratio] 0.0 /100 WBCs Normal 0.0-0.0 [facility] Comment on above: Performed By: #### V ERAB #### MELISA Galvan ([id number]) [facility] ([facility]) [address] [place] [address] [place] Platelets (Bld) [#/Vol] 285 x10*3/uL Normal 150-450 [facility] Comment on above: Performed By: #### V ERAB #### MELISA Galvan ([id number]) [facility] ([facility]) [address] [place] [address] [place] RBC (Bld) [#/Vol] 3.96 x10*6/uL Low 4.00-5.20 [facility] Comment on above: Performed By: #### V ERAB #### MELISA Galvan ([id number]) [facility] ([facility]) [address] [place] [address] [place] WBC (Bld) [#/Vol] 4.3 x10*3/uL Low 4.4-11.3 [facility] Comment on above: Performed By: #### V ERAB #### MELISA Galvan ([id number]) [facility] ([facility]) [address] [place] [address] US Comprehensive metabolic 2000 panelon 03-19-2023 Albumin [Mass/Vol] 3.2 g/dL Low 3.5 - 5.0 g/dL [facility] ALP (Bld) [Catalytic activity/Vol] 68 U/L 35 - 125 U/L [facility] ALT [Catalytic activity/Vol] 14 U/L 5 - 40 U/L [facility] Anion gap [Moles/Vol] 13 mmol/L NINF - 19 mmol/L [facility] AST [Catalytic activity/Vol] 27 U/L 5 - 40 U/L [facility] Bilirubin [Mass/Vol] 0.4 mg/dL 0.1 - 1.2 mg/dL [facility] Calcium [Mass/Vol] 8.7 mg/dL 8.5 - 10.4 mg/dL [facility] Chloride [Moles/Vol] 106 mmol/L 97 - 107 mmol/L [facility] CO2 [Moles/Vol] 21 mmol/L Low 24 - 31 mmol/L [facility] Creatinine [Mass/Vol] 0.60 mg/dL 0.40 - 1.60 mg/dL [facility] eGFR - PINF [facility] Comment on above: Calculations of jessica mated GFR are performed using the 2020 CKD-EPI Study Refit equation without the race variable for the IDMS-Traceable creatinine methods. https://jasn.asnjournals.org/content/early/ASN.13880697 88 Glucose [Mass/Vol] 98 mg/dL 65 - 99 mg/dL [facility] Interpretation and review of laboratory results Abnormal [facility] Potassium [Moles/Vol] 3.7 mmol/L 3.4 - 5.1 mmol/L [facility] Protein [Mass/Vol] 5.7 g/dL Low 5.9 - 7.9 g/dL [facility] Sodium [Moles/Vol] 140 mmol/L 133 - 145 mmol/L [facility] Urea nitrogen [Mass/Vol] 5 mg/dL Low 8 - 25 mg/dL [facility] Albumin [Mass/Vol] 3.2 g/dL Low 3.5-5.0 [facility] Comment on above: Performed By: #### V ERAB #### MELISA Galvan ([id number]) [facility] ([facility]) [address] [place] [address] [place] ALP (Bld) [Catalytic activity/Vol] 68 U/L Normal 35-125 [facility] Comment on above: Performed By: #### V ERAB #### MELISA Galvan ([id number]) [facility] ([facility]) [address] [place] [address] [place] ALT [Catalytic activity/Vol] 14 U/L Normal 5-40 [facility] Comment on above: Performed By: #### V ERAB #### MELISA Galvan ([id number]) [facility] ([facility]) [address] [place] [address] [place] Anion gap [Moles/Vol] 13 mmol/L Normal <=19 [facility] Comment on above: Performed By: #### V ERAB #### MELISA Galvan () [facility] ([facility]) [address] [place] [address] [place] AST [Catalytic activity/Vol] 27 U/L Normal 5-40 [facility] Comment on above: Performed By: #### V ERAB #### MELISA Galvan () [facility] [address] [place] [address] [place] Bilirubin [Mass/Vol] 0.4 mg/dL Normal 0.1-1.2 [facility] Comment on above: Performed By: #### V ERAB #### MELISA Galvan () [facility] ([facility]) [address] [place] [address] [place] Calcium [Mass/Vol] 8.7 mg/dL Normal 8.5-10.4 [facility] Comment on above: Performed By: #### V ERAB #### MELISA Galavn () [facility] ([facility]) [address] [place] [address] [place] Chloride [Moles/Vol] 106 mmol/L Normal 97-107 [facility] Comment on above: Performed By: #### V ERAB #### MELISA Galvan () [facility] ([facility]) [address] [place] [address] [place] CO2 [Moles/Vol] 21 mmol/L Low 24-31 [facility] Comment on above: Performed By: #### V ERAB #### MELISA Galvan () [facility] ([facility]) [address] [place] [address] [place] Creatinine [Mass/Vol] 0.60 mg/dL Normal 0.40-1.60 [facility] Comment on above: Performed By: #### V ERAB #### MELISA Galvan () [facility] ([facility]) [address] [place] [address] [place] GFR/1.73 sq M.predicted MDRD (S/P/Bld) [Vol rate/Area] mL/min/{1.73_m2} Normal >60 [facility] Comment on above: Result Comment: Calc ulations of estimated GFR are performed using the 2020 CKD-EPI Study Refit equation without the race variable for the IDMS-Traceable creatinine methods. https://jasn.asnjournals.org/content//ASN.41168605 88 Performed By: #### V ERAB #### MELISA Galvan ([id number]) [facility] ([facility]) [address] [place] [address] [place] Glucose [Mass/Vol] 98 mg/dL Normal 65-99 [facility] Comment on above: Performed By: #### V ERAB #### MELISA Galvan ([id number]) [facility] ([facility]) [address] [place] [address] [place] Potassium [Moles/Vol] 3.7 mmol/L Normal 3.4-5.1 [facility] Comment on above: Performed By: #### V ERAB #### MELISA Galvan ([id number]) [facility] ([facility]) [address] [place] [address] [place] Protein [Mass/Vol] 5.7 g/dL Low 5.9-7.9 [facility] Comment on above: Performed By: #### V ERAB #### MELISA Galvan ([id number]) [facility] ([facility]) [address] [place] [address] [place] Sodium [Moles/Vol] 140 mmol/L Normal 133-145 [facility] Comment on above: Performed By: #### V ERAB #### MELISA Galvan ([id number]) [facility] ([facility]) [address] [place] [address] [place] Urea nitrogen [Mass/Vol] 5 mg/dL Low 8-25 [facility] Comment on above: Performed By: #### V ERAB #### MELISA Galvan ([id number]) [facility] [address] [place] [address] EGDon 03-19-2023 Esophagogastroduode noscopy Table formatting from the original result was not included. [facility] EGD Study observation Giorgio reyna 03-19-2023 Table [...] Tomasa Keyes RN 03/19/2023 1431 Procedure Location [address] [address] Referring Provider Generic Provider [place] No address on file Procedure Provider No name on file [facility] Work Phone: Radiology Study observation (narrative) [facility] Work Phone: EGD Study observation Narrat iveOrdered By: Eve Preston on 03-19-2023 [facility] Work Phone: Home Health Recordson 2023 Home Health Records [id number] Normal [facility] Surgical pathology studyon 0 03-19-2023 Surgical pathology study Pathology report.total SEE COMMENT Surgical Pathology Case: [id number] Authorizing Provider: Eve Preston MD Collected: 03/19/2023 1431 Ordering Location: [facility] Received: 03/19/[address] [place] [address] Pathologist: Melisa Mc MD Specimen: STOMACH ANTRUM [...] 1 cassette. M[facility] Gross dissection performed at: [address] [address] Normal [facility] CBC panel Auto (Bld)on 03-18 Erythrocyte distribution width (RBC) [Ratio] 12.5 % 11.5 - 14.5 % [facility] Hematocrit (Bld) [Volume fraction] 37.2 % 36.0 - 46.0 % [facility] Hemoglobin (Bld) [Mass/Vol] 12.1 g/dL 12.0 - 16.0 g/dL [facility] Interpretation and review of laboratory results Abnormal [facility] MCH (RBC) [Entitic mass] 30.0 pg 26.0 - 34.0 pg [facility] MCHC (RBC) [Mass/Vol] 32.5 g/dL 32.0 - 36.0 g/dL [facility] MCV (RBC) [Entitic vol] 92 fL 80 - 100 fL [facility] Nucleated RBC/100 WBC (Bld) [Ratio] 0.0 % [facility] Platelets (Bld) [#/Vol] 266 10*3/uL [facility] RBC (Bld) [#/Vol] 4.03 10*6/uL [facility] WBC (Bld) [#/Vol] 4.0 10*3/uL Low [facility] Erythrocyte distribution width (RBC) [Ratio] 12.5 % Normal 11.5-14.5 [facility] Comment on above: Performed By: #### 5 8410-2 ####MELISA Galvan ([id number])[facility] ()[address] [place] [address] Hematocrit (Bld) [Volume fraction] 37.2 % Normal 36.0-46.0 [facility] Comment on above: Performed By: #### 5 8410-2 ####MELISA Galvan ([id number])[facility] ()[address] [place] [address] Hemoglobin (Bld) [Mass/Vol] 12.1 g/dL Normal 12.0-16.0 [facility] Comment on above: Performed By: #### 5 8410-2 ####MELISA Galvan ([id number])[facility] ()[address] [place] [address] MCH (RBC) [Entitic mass] 30.0 pg Normal 26.0-34.0 [facility] Comment on above: Performed By: #### 5 8410-2 ####MELISA Galvan ()[facility] ()[address] [place] [address] MCHC (RBC) [Mass/Vol] 32.5 g/dL Normal 32.0-36.0 [facility] Comment on above: Performed By: #### 5 8410-2 ####MELISA Galvan ([id number])[facility] ()[address] [place] [address] MCV (RBC) [Entitic vol] 92 fL Normal 80-100 [facility] Comment on above: Performed By: #### 5 8410-2 ####MELISA Galvan ()[facility] ()[address] [place] [address] Nucleated RBC/100 WBC (Bld) [Ratio] 0.0 /100 WBCs Normal 0.0-0.0 [facility] Comment on above: Performed By: #### 5 8410-2 ####MELISA Galvan ([id number])[facility] ()[address] [place] [address] Platelets (Bld) [#/Vol] 266 x10*3/uL Normal 150-450 [facility] Comment on above: Performed By: #### 5 8410-2 ####MELISA Galvan ([id number])[facility] ()[address] [place] [address] RBC (Bld) [#/Vol] 4.03 x10*6/uL Normal 4.00-5.20 [facility] Comment on above: Performed By: #### 5 8410-2 ####MELISA Galvan ()[facility] ()[address] [place] [address] WBC (Bld) [#/Vol] 4.0 x10*3/uL Low 4.4-11.3 [facility] Comment on above: Performed By: #### 5 8410-2 ####MELISA Galvan ([id number])[facility] ()[address] [place] [address] Comprehensive metabolic 2000 panelon 03-18-2023 Albumin [Mass/Vol] 3.0 g/dL Low 3.5 - 5.0 g/dL [facility] ALP (Bld) [Catalytic activity/Vol] 66 U/L 35 - 125 U/L [facility] ALT [Catalytic activity/Vol] 17 U/L 5 - 40 U/L [facility] Anion gap [Moles/Vol] 10 mmol/L NINF - 19 mmol/L [facility] AST [Catalytic activity/Vol] 33 U/L 5 - 40 U/L [facility] Bilirubin [Mass/Vol] 0.3 mg/dL 0.1 - 1.2 mg/dL [facility] Calcium [Mass/Vol] 8.4 mg/dL Low 8.5 - 10.4 mg/dL [facility] Chloride [Moles/Vol] 108 mmol/L High 97 - 107 mmol/L [facility] CO2 [Moles/Vol] 19 mmol/L Low 24 - 31 mmol/L [facility] Creatinine [Mass/Vol] 0.80 mg/dL 0.40 - 1.60 mg/dL [facility] eGFR - PINF [facility] Comment on above: Calculations of jessica mated GFR are performed using the 2020 CKD-EPI Study Refit equation without the race variable for the IDMS-Traceable creatinine methods. https://jasn.asnjournals.org/content//ASN.59520543 88 Glucose [Mass/Vol] 79 mg/dL 65 - 99 mg/dL [facility] Interpretation and review of laboratory results Abnormal [facility] Potassium [Moles/Vol] 3.8 mmol/L 3.4 - 5.1 mmol/L [facility] Protein [Mass/Vol] 5.7 g/dL Low 5.9 - 7.9 g/dL [facility] Sodium [Moles/Vol] 137 mmol/L 133 - 145 mmol/L [facility] Urea nitrogen [Mass/Vol] 5 mg/dL Low 8 - 25 mg/dL [facility] Albumin [Mass/Vol] 3.0 g/dL Low 3.5-5.0 [facility] Comment on above: Performed By: #### 2 4323-8 ####MELISA Galvan ([id number])[facility] ()[address] [place] [address] ALP (Bld) [Catalytic activity/Vol] 66 U/L Normal 35-125 [facility] Comment on above: Performed By: #### 2 4323-8 ####MELISA Galvan ([id number])[facility] ()[address] [place] [address] ALT [Catalytic activity/Vol] 17 U/L Normal 5-40 [facility] Comment on above: Performed By: #### 2 4323-8 ####MELISA Galvan ([id number])[facility] ()[address] [place] [address] Anion gap [Moles/Vol] 10 mmol/L Normal <=19 [facility] Comment on above: Performed By: #### 2 4323-8 ####MELISA Galvan ([id number])[facility] ()[address] [place] [address] AST [Catalytic activity/Vol] 33 U/L Normal 5-40 [facility] Comment on above: Performed By: #### 2 4323-8 ####MELISA Galvan ([id number])[facility] ()[address] [place] [address] Bilirubin [Mass/Vol] 0.3 mg/dL Normal 0.1-1.2 [facility] Comment on above: Performed By: #### 2 4323-8 ####MELISA Galvan ([id number])[facility] ()[address] [place] [address] Calcium [Mass/Vol] 8.4 mg/dL Low 8.5-10.4 [facility] Comment on above: Performed By: #### 2 4323-8 ####MELISA Galvan (41949)[facility] ()[address] [place] [address] Chloride [Moles/Vol] 108 mmol/L High 97-107 [facility] Comment on above: Performed By: #### 2 4323-8 ####MELISA Galvan ([id number])[facility] ()[address] [place] [address] CO2 [Moles/Vol] 19 mmol/L Low 24-31 [facility] Comment on above: Performed By: #### 2 4323-8 ####MELISA Galvan (69257)[facility] ()[address] [place] [address] Creatinine [Mass/Vol] 0.80 mg/dL Normal 0.40-1.60 [facility] Comment on above: Performed By: #### 2 4323-8 ####MELISA Galvan ([id number])[facility] ()[address] [place] [address] GFR/1.73 sq M.predicted MDRD (S/P/Bld) [Vol rate/Area] mL/min/{1.73_m2} Normal >60 [facility] Comment on above: Result Comment: Calc ulations of estimated GFR are performed using the 2020 CKD-EPI Study Refit equation without the race variable for the IDMS-Traceable creatinine methods. https://jasn.asnjournals.org/content/early//ASN.50934594 88 Performed By: #### 2 4323-8 ####MELISA Galvan (91938)[facility] ()[address] [place] [address] Glucose [Mass/Vol] 79 mg/dL Normal 65-99 [facility] Comment on above: Performed By: #### 2 4323-8 ####MELISA Galvan (45957)[facility] ()[address] [place] [address] Potassium [Moles/Vol] 3.8 mmol/L Normal 3.4-5.1 [facility] Comment on above: Performed By: #### 2 4323-8 ####MELISA Galvan ([id number])[facility] ()[address] [place] [address] Protein [Mass/Vol] 5.7 g/dL Low 5.9-7.9 [facility] Comment on above: Performed By: #### 2 4323-8 ####MELISA Galvan (60012)[facility] ()[address] [place] [address] Sodium [Moles/Vol] 137 mmol/L Normal 133-145 [facility] Comment on above: Performed By: #### 2 4323-8 ####MELISA Galvan ([id number])[facility] ()[address] [place] [address] Urea nitrogen [Mass/Vol] 5 mg/dL Low 8-25 [facility] Comment on above: Performed By: #### 2 4323-8 ####MELISA Galvan ([id number])[facility] ()[address] [place] [address] CBC panel Auto (Bld)on 03-17 Erythrocyte distribution width (RBC) [Ratio] 12.5 % 11.5 - 14.5 % [facility] Hematocrit (Bld) [Volume fraction] 34.9 % Low 36.0 - 46.0 % [facility] Hemoglobin (Bld) [Mass/Vol] 11.5 g/dL Low 12.0 - 16.0 g/dL [facility] Interpretation and review of laboratory results Abnormal [facility] MCH (RBC) [Entitic mass] 30.2 pg 26.0 - 34.0 pg [facility] MCHC (RBC) [Mass/Vol] 33.0 g/dL 32.0 - 36.0 g/dL [facility] MCV (RBC) [Entitic vol] 92 fL 80 - 100 fL [facility] Nucleated RBC/100 WBC (Bld) [Ratio] 0.0 % [facility] Platelets (Bld) [#/Vol] 268 10*3/uL [facility] RBC (Bld) [#/Vol] 3.81 10*6/uL Low [facility] WBC (Bld) [#/Vol] 5.0 10*3/uL [facility] Erythrocyte distribution width (RBC) [Ratio] 12.5 % Normal 11.5-14.5 [facility] Comment on above: Performed By: #### 5 8410-2 ####MELISA Galvan ([id number])[facility] ()[address] [place] [address] Hematocrit (Bld) [Volume fraction] 34.9 % Low 36.0-46.0 [facility] Comment on above: Performed By: #### 5 8410-2 ####MELISA Galvan (73253)[facility] ()[address] [place] [address] Hemoglobin (Bld) [Mass/Vol] 11.5 g/dL Low 12.0-16.0 [facility] Comment on above: Performed By: #### 5 8410-2 ####MELISA Galvan ([id number])[facility] ()[address] [place] [address] MCH (RBC) [Entitic mass] 30.2 pg Normal 26.0-34.0 [facility] Comment on above: Performed By: #### 5 8410-2 ####MELISA Galvan (63427)[facility] ()[address] [place] [address] MCHC (RBC) [Mass/Vol] 33.0 g/dL Normal 32.0-36.0 [facility] Comment on above: Performed By: #### 5 8410-2 ####MELISA Galvan ([id number])[facility] ()[address] [place] [address] MCV (RBC) [Entitic vol] 92 fL Normal 80-100 [facility] Comment on above: Performed By: #### 5 8410-2 ####MELISA Galvan ([id number])[facility] ()[address] [place] [address] Nucleated RBC/100 WBC (Bld) [Ratio] 0.0 /100 WBCs Normal 0.0-0.0 [facility] Comment on above: Performed By: #### 5 8410-2 ####MELISA Galvan ([id number])[facility] ()[address] [place] [address] Platelets (Bld) [#/Vol] 268 x10*3/uL Normal 150-450 [facility] Comment on above: Performed By: #### 5 8410-2 ####MELISA Galvan ([id number])[facility] ()[address] [place] [address] RBC (Bld) [#/Vol] 3.81 x10*6/uL Low 4.00-5.20 [facility] Comment on above: Performed By: #### 5 8410-2 ####MELISA Galvan ([id number])[facility] ()[address] [place] [address] WBC (Bld) [#/Vol] 5.0 x10*3/uL Normal 4.4-11.3 [facility] Comment on above: Performed By: #### 5 8410-2 ####MELISA Galvan ([id number])[facility] ()[address] [place] [address] Comprehensive metabolic 2000 panelon 03-17-2023 Albumin [Mass/Vol] 3.3 g/dL Low 3.5 - 5.0 g/dL [facility] ALP (Bld) [Catalytic activity/Vol] 61 U/L 35 - 125 U/L [facility] ALT [Catalytic activity/Vol] 17 U/L 5 - 40 U/L [facility] Anion gap [Moles/Vol] 10 mmol/L NINF - 19 mmol/L [facility] AST [Catalytic activity/Vol] 31 U/L 5 - 40 U/L [facility] Bilirubin [Mass/Vol] 0.2 mg/dL 0.1 - 1.2 mg/dL [facility] Calcium [Mass/Vol] 8.1 mg/dL Low 8.5 - 10.4 mg/dL [facility] Chloride [Moles/Vol] 112 mmol/L High 97 - 107 mmol/L [facility] CO2 [Moles/Vol] 21 mmol/L Low 24 - 31 mmol/L [facility] Creatinine [Mass/Vol] 0.80 mg/dL 0.40 - 1.60 mg/dL [facility] eGFR - PINF [facility] Comment on above: Calculations of jessica mated GFR are performed using the 2020 CKD-EPI Study Refit equation without the race variable for the IDMS-Traceable creatinine methods. https://jasn.asnjournals.org/content/early/ASN.78045088 88 Glucose [Mass/Vol] 122 mg/dL High 65 - 99 mg/dL [facility] Interpretation and review of laboratory results Abnormal [facility] Potassium [Moles/Vol] 4.3 mmol/L 3.4 - 5.1 mmol/L [facility] Protein [Mass/Vol] 5.7 g/dL Low 5.9 - 7.9 g/dL [facility] Sodium [Moles/Vol] 143 mmol/L 133 - 145 mmol/L [facility] Urea nitrogen [Mass/Vol] 5 mg/dL Low 8 - 25 mg/dL [facility] Albumin [Mass/Vol] 3.3 g/dL Low 3.5-5.0 [facility] Comment on above: Performed By: #### 2 4323-8 ####MELISA Galvan ([id number])[facility] ()[address] [place] [address] ALP (Bld) [Catalytic activity/Vol] 61 U/L Normal 35-125 [facility] Comment on above: Performed By: #### 2 432-8 ####MELISA Galvan ([id number])[facility] ()[address] [place] [address] ALT [Catalytic activity/Vol] 17 U/L Normal 5-40 [facility] Comment on above: Performed By: #### 2 432-8 ####MELISA Galvan ([id number])[facility] ()[address] [place] [address] Anion gap [Moles/Vol] 10 mmol/L Normal <=19 [facility] Comment on above: Performed By: #### 2 432-8 ####MELISA Galvan ([id number])[facility] ()[address] [place] [address] AST [Catalytic activity/Vol] 31 U/L Normal 5-40 [facility] Comment on above: Performed By: #### 2 4323-8 ####MELISA Galvan ([id number])[facility] ()[address] [place] [address] Bilirubin [Mass/Vol] 0.2 mg/dL Normal 0.1-1.2 [facility] Comment on above: Performed By: #### 2 4323-8 ####MELISA Galvan ([id number])[facility] ()[address] [place] [address] Calcium [Mass/Vol] 8.1 mg/dL Low 8.5-10.4 [facility] Comment on above: Performed By: #### 2 4323-8 ####MELISA Galvan ([id number])[facility] ()[address] [place] [address] Chloride [Moles/Vol] 112 mmol/L High 97-107 [facility] Comment on above: Performed By: #### 2 4323-8 ####MELISA Galvan ([id number])[facility] ()[address] [place] [address] CO2 [Moles/Vol] 21 mmol/L Low 24-31 [facility] Comment on above: Performed By: #### 2 4323-8 ####MELISA Galvan (68671)[facility] ()[address] [place] [address] Creatinine [Mass/Vol] 0.80 mg/dL Normal 0.40-1.60 [facility] Comment on above: Performed By: #### 2 4323-8 ####MELISA Galvan ([id number])[facility] ()[address] [place] [address] GFR/1.73 sq M.predicted MDRD (S/P/Bld) [Vol rate/Area] mL/min/{1.73_m2} Normal >60 [facility] Comment on above: Result Comment: Calc ulations of estimated GFR are performed using the 2020 CKD-EPI Study Refit equation without the race variable for the IDMS-Traceable creatinine methods. https://jasn.asnjournals.org/content//ASN.05299053 88 Performed By: #### 2 4323-8 ####MELISA Galvan (08035)[facility] ()[address] [place] [address] Glucose [Mass/Vol] 122 mg/dL High 65-99 [facility] Comment on above: Performed By: #### 2 4323-8 ####MELISA Galvan (89725)[facility] ()[address] [place] [address] Potassium [Moles/Vol] 4.3 mmol/L Normal 3.4-5.1 [facility] Comment on above: Performed By: #### 2 4323-8 ####MELISA Galvan ([id number])[facility] ()[address] [place] [address] Protein [Mass/Vol] 5.7 g/dL Low 5.9-7.9 [facility] Comment on above: Performed By: #### 2 4323-8 ####MELISA Galvan ([id number])[facility] ()[address] [place] [address] Sodium [Moles/Vol] 143 mmol/L Normal 133-145 [facility] Comment on above: Performed By: #### 2 4323-8 ####MELISA Galvan (02401)[facility] ()[address] [place] [address] Urea nitrogen [Mass/Vol] 5 mg/dL Low 8-25 [facility] Comment on above: Performed By: #### 2 4323-8 ####MELISA Galvan (49295)[facility] ()[address] [place] [address] FL UPPER GI W DOUBLE CONTRAS T W SMALL BOWEL FOLLOW THROUGHon 03-17-2023 FL UPPER GI W DOUBLE CONTRAST W SMALL BOWEL FOLLOW THROUGH Interpreted By: Corie Garza, ADDENDUM: The exam was a single contrast upper GI with small-bowel follow-through Signed by: Corie Garza 04/01/2023 12:58 PM -------- ORIGINAL REPORT -------- Dictation workstation: [id number] Interpreted By: Corie Garza, STUDY: FL UPPER GI W DOUBLE CONTRAST W SMALL BOWEL FOLLOW THROUGH; 03/17/2023 4:40 pm INDICATION: Signs/Symptoms:abdo kerry pain. COMPARISON: None. ACCESSION NUMBER(S): [id number] ORDERING CLINICIAN: TIFFANIE MENDEZ TECHNIQUE: Multiple fluoroscopic spot images were obtained during a single contrast upper GI with KUB. 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 No evidence for obstruction.. MACRO: none Signed by: Corie Garza 03/17/2023 5:00 PM Dictation workstation: [id number] Interpreted By: Corie Garza, STUDY: FL UPPER GI W DOUBLE CONTRAST W SMALL BOWEL FOLLOW THROUGH; 03/17/2023 4:40 pm INDICATION: Signs/Symptoms:abdo kerry pain. COMPARISON: None. ACCESSION NUMBER(S): [id number] ORDERING CLINICIAN: TIFFANIE MENDEZ TECHNIQUE: Multiple fluoroscopic spot images were obtained during a single contrast upper GI with KUB. 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 COMPARISON: None. ACCESSION NUMBER(S): [id number] ORDERING CLINICIAN: TIFFANIE MENDEZ TECHNIQUE: Multiple fluoroscopic spot images were obtained during a single contrast upper GI with KUB. 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 ACCESSION NUMBER(S): [id number] ORDERING CLINICIAN: TIFFANIE MENDEZ TECHNIQUE: AP erect view of the chest FINDINGS: The nasogastric tube has not changed in placement with the tip seen within the proximal thoracic esophagus. Heart and mediastinum are normally visualized. Lungs are clear. IMPRESSION: Distal tip of nasogastric tube in proximal thoracic esophagus just above the aortic arch. Signed by: Nya Ahmadi 03/17/2023 8:19 PM Dictation workstation: [id number] [facility] XR CHEST 1 VIEW Interpreted By: Corie Garza, STUDY: XR CHEST 1 VIEW; 03/17/2023 12:41 pm INDICATION: Signs/Symptoms:Stat us post NG tube placement. COMPARISON: None available ACCESSION NUMBER(S): [id number] ORDERING CLINICIAN: TIFFANIE MENDEZ FINDINGS: RESULT: Nasogastric [...] Corie Garza 03/17/2023 4:19 PM Dictation workstation: [id number] [facility] XR Chest Single viewon 03-17 Distal tip of nasogastric tube in proximal thoracic esophagus just above the aortic arch. Signed by: Nya Ahmadi 03/17/2023 8:19 PM Dictation workstation: [id number] [facility] Interpreted By: Nya Ahmadi, STUDY: XR CHEST 1 VIEW 03/17/2023 7:09 pm INDICATION: Signs/Symptoms:S/p NG placement COMPARISON: 03/17/2023 done at 2:05 p.m. ACCESSION NUMBER(S): [id number] ORDERING CLINICIAN: TIFFANIE MENDEZ TECHNIQUE: AP erect [...] 03/17/2023 done at 2:05 p.m. ACCESSION NUMBER(S): [id number] ORDERING CLINICIAN: TIFFANIE MENDEZ TECHNIQUE: AP erect view of the chest FINDINGS: The nasogastric tube has not changed in placement with the tip seen within the proximal thoracic esophagus. Heart and mediastinum are normally visualized. Lungs are clear. IMPRESSION: Distal tip of nasogastric tube in proximal thoracic esophagus just above the aortic arch. Signed by: Nya Ahmadi 03/17/2023 8:19 PM Dictation workstation: [id number] [facility] Work Phone: Radiology Study observation (narrative) [facility] Work Phone: Nasogastric tube tip is noted at the level of the upper esophagus at the level of the clavicular heads. The nasogastric tube removed itself from the patient soon after this exam. Signed by: Corie Garza 03/17/2023 4:19 PM Dictation workstation: [id number] [facility] Interpreted By: Corie Garza, STUDY: XR CHEST 1 VIEW; 03/17/2023 12:41 pm INDICATION: Signs/Symptoms:Stat us post NG tube placement. COMPARISON: None available ACCESSION NUMBER(S): [id number] ORDERING CLINICIAN: TIFFANIE MENDEZ FINDINGS: RESULT: Nasogastric [...] tube placement. COMPARISON: None available ACCESSION NUMBER(S): [id number] ORDERING CLINICIAN: TIFFANIE MENDEZ FINDINGS: RESULT: Nasogastric [...] Corie Garza 03/17/2023 4:19 PM Dictation workstation: [id number] [facility] Work Phone: [facility] Work Phone: Radiology Study observation (narrative) [facility] Work Phone: XR Chest Single viewOrdered By: Nya Ahmadi on 03-17-2023 [facility] Work Phone: BMPon 03-16-2023 Anion gap [Moles/Vol] 11 mmol/L Normal 6-16 [facility] Comment on above: Performed By: #### 2 355513, 03292737, 3134344, 5334877, 5231387, 4915367 ####[facility] [address] [place] [address] BUN/Creat Ratio 10 No Units Normal 10-20 [facility] Comment on above: Performed By: #### 2 802345, 71986126, 8945830, 3116841, 6698024, 8082331 ####[facility] [address] [place] [address] Calcium [Mass/Vol] 8.5 mg/dL Low 8.9-11.1 [facility] Comment on above: Performed By: #### 2 842480, 20888345, 2096436, 1529968, 3098149, 7747549 ####[facility] [address] [place] [address] Chloride [Moles/Vol] 109 mmol/L Normal 101-111 [facility] Comment on above: Performed By: #### 2 855106, 18881428, 5980717, 0074989, 6806917, 7255423 ####[facility] [address] [place] [address] CO2 [Moles/Vol] 24 mmol/L Normal 21-31 [facility] Comment on above: Performed By: #### 2 617321, 67319939, 0528351, 9407469, 3612701, 2427349 ####[facility] [address] [place] [address] Creatinine [Mass/Vol] 0.8 mg/dL Normal 0.5-1.3 [facility] Comment on above: Performed By: #### 2 157643, 33767383, 2454537, 5468945, 7591171, 8439442 ####[facility] [address] [place] [address] Glucose [Mass/Vol] 77 mg/dL Normal 55-199 [facility] Comment on above: Performed By: #### 2 736408, 24029353, 5637061, 5152854, 6063480, 1084176 ####[facility] [address] [place] [address] Potassium [Moles/Vol] 3.7 mmol/L Normal 3.5-5.3 [facility] Comment on above: Performed By: #### 2 391499, 02287408, 3829345, 7361109, 1224553, 6956072 ####[facility] [address] [place] [address] Sodium [Moles/Vol] 140 mmol/L Normal 135-145 [facility] Comment on above: Performed By: #### 2 829474, 65796155, 0346770, 2522039, 1502605, 3366755 ####[facility] [address] [place] [address] Urea nitrogen [Mass/Vol] 8 mg/dL Normal 5-21 [facility] Comment on above: Performed By: #### 2 936635, 18931143, 9807015, 0522589, 3575946, 1458403 ####[facility] [address] [place] [address] CBC W Auto Differential pane l (Bld)on 03-16-2023 Basophils (Bld) [#/Vol] 0.07 10*3/uL [facility] Basophils/100 WBC (Bld) 1.4 % 0.0 - 2.0 % [facility] Eosinophils (Bld) [#/Vol] 0.50 10*3/uL [facility] Eosinophils/100 WBC (Bld) 9.9 % 0.0 - 6.0 % [facility] Erythrocyte distribution width (RBC) [Ratio] 12.3 % 11.5 - 14.5 % [facility] Hematocrit (Bld) [Volume fraction] 33.4 % Low 36.0 - 46.0 % [facility] Hemoglobin (Bld) [Mass/Vol] 10.8 g/dL Low 12.0 - 16.0 g/dL [facility] Immature granulocytes (Bld) [#/Vol] 0.01 10*3/uL [facility] Immature granulocytes/100 WBC (Bld) 0.2 % 0.0 - 0.9 % [facility] Comment on above: Immature Granulocyte Count (IG) includes promyelocytes, myelocytes and metamyelocytes but does not include bands. Percent differential counts (%) should be interpreted in the context of the absolute cell counts (cells/UL). Interpretation and review of laboratory results Abnormal [facility] Lymphocytes (Bld) [#/Vol] 1.70 10*3/uL [facility] Lymphocytes/100 WBC (Bld) 33.7 % 13.0 - 44.0 % [facility] MCH (RBC) [Entitic mass] 30.5 pg 26.0 - 34.0 pg [facility] MCHC (RBC) [Mass/Vol] 32.3 g/dL 32.0 - 36.0 g/dL [facility] MCV (RBC) [Entitic vol] 94 fL 80 - 100 fL [facility] Monocytes (Bld) [#/Vol] 0.31 10*3/uL [facility] Monocytes/100 WBC (Bld) 6.2 % 2.0 - 10.0 % [facility] Neutrophils (Bld) [#/Vol] 2.45 10*3/uL [facility] Comment on above: Percent differential counts (%) should be interpreted in the context of the absolute cell counts (cells/uL). Neutrophils/100 WBC (Bld) 48.6 % 40.0 - 80.0 % [facility] Nucleated RBC/100 WBC (Bld) [Ratio] 0.0 % [facility] Platelets (Bld) [#/Vol] 273 10*3/uL [facility] RBC (Bld) [#/Vol] 3.54 10*6/uL [facility] WBC (Bld) [#/Vol] 5.0 10*3/uL [facility] Basophils (Bld) [#/Vol] 0.07 x10*3/uL Normal 0.00-0.10 [facility] Comment on above: Performed By: #### 5 7021-8 ####MELISA Galvan ([id number])[facility] (MW)[address] [place] [address] Basophils/100 WBC (Bld) 1.4 % Normal 0.0-2.0 [facility] Comment on above: Performed By: #### 5 7021-8 ####MELISA Galvan ([id number])[facility] ()[address] [place] [address] Eosinophils (Bld) [#/Vol] 0.50 x10*3/uL Normal 0.00-0.70 [facility] Comment on above: Performed By: #### 5 7021-8 ####MELISA Galvan ([id number])[facility] ()[address] [place] [address] Eosinophils/100 WBC (Bld) 9.9 % Normal 0.0-6.0 [facility] Comment on above: Performed By: #### 5 7021-8 ####MELISA Galvan ([id number])[facility] ()[address] [place] [address] Erythrocyte distribution width (RBC) [Ratio] 12.3 % Normal 11.5-14.5 [facility] Comment on above: Performed By: #### 5 7021-8 ####MELISA Galvan ([id number])[facility] ()[address] [place] [address] Hematocrit (Bld) [Volume fraction] 33.4 % Low 36.0-46.0 [facility] Comment on above: Performed By: #### 5 7021-8 ####MELISA Galvan ([id number])[facility] ()[address] [place] [address] Hemoglobin (Bld) [Mass/Vol] 10.8 g/dL Low 12.0-16.0 [facility] Comment on above: Performed By: #### 5 7021-8 ####MELISA Galvan ([id number])[facility] ()[address] [place] [address] Immature granulocytes (Bld) [#/Vol] 0.01 x10*3/uL Normal 0.00-0.70 [facility] Comment on above: Performed By: #### 5 7021-8 ####MELISA Galvan ([id number])[facility] ()[address] [place] [address] Immature granulocytes/100 WBC (Bld) 0.2 % Normal 0.0-0.9 [facility] Comment on above: Result Comment: Janny ture Granulocyte Count (IG) includes promyelocytes, myelocytes and metamyelocytes but does not include bands. Percent differential counts (%) should be interpreted in the context of the absolute cell counts (cells/UL). Performed By: #### 5 7021-8 ####MELISA Galvan ([id number])[facility] ()[address] [place] [address] Lymphocytes (Bld) [#/Vol] 1.70 x10*3/uL Normal 1.20-4.80 [facility] Comment on above: Performed By: #### 5 7021-8 ####MELISA Galvan ([id number])[facility] ()[address] [place] [address] Lymphocytes/100 WBC (Bld) 33.7 % Normal 13.0-44.0 [facility] Comment on above: Performed By: #### 5 7021-8 ####MELISA Galvan ([id number])[facility] ()[address] [place] [address] MCH (RBC) [Entitic mass] 30.5 pg Normal 26.0-34.0 [facility] Comment on above: Performed By: #### 5 7021-8 ####MELISA Galvan ([id number])[facility] ()[address] [place] [address] MCHC (RBC) [Mass/Vol] 32.3 g/dL Normal 32.0-36.0 [facility] Comment on above: Performed By: #### 5 7021-8 ####MELISA Galvan ([id number])[facility] ()[address] [place] [address] MCV (RBC) [Entitic vol] 94 fL Normal 80-100 [facility] Comment on above: Performed By: #### 5 7021-8 ####MELISA Galvan ([id number])[facility] ()[address] [place] [address] Monocytes (Bld) [#/Vol] 0.31 x10*3/uL Normal 0.10-1.00 [facility] Comment on above: Performed By: #### 5 7021-8 ####MELISA Galvan ([id number])[facility] ()[address] [place] [address] Monocytes/100 WBC (Bld) 6.2 % Normal 2.0-10.0 [facility] Comment on above: Performed By: #### 5 7021-8 ####MELISA Galvan ([id number])[facility] ()[address] [place] [address] Neutrophils (Bld) [#/Vol] 2.45 x10*3/uL Normal 1.20-7.70 [facility] Comment on above: Result Comment: Perc ent differential counts (%) should be interpreted in the context of the absolute cell counts (cells/uL). Performed By: #### 5 7021-8 ####MELISA Galvan ([id number])[facility] ()[address] [place] [address] Neutrophils/100 WBC (Bld) 48.6 % Normal 40.0-80.0 [facility] Comment on above: Performed By: #### 5 7021-8 ####MELISA Galvan ([id number])[facility] ()[address] [place] [address] Nucleated RBC/100 WBC (Bld) [Ratio] 0.0 /100 WBCs Normal 0.0-0.0 [facility] Comment on above: Performed By: #### 5 7021-8 ####MELISA Galvan ([id number])[facility] ()[address] [place] [facility] [place] [address] Platelets (Bld) [#/Vol] 273 x10*3/uL Normal 150-450 [facility] Comment on above: Performed By: #### 5 7021-8 ####MELISA Galvan (86077)[facility] ()[address] [place] [address] RBC (Bld) [#/Vol] 3.54 x10*6/uL Low 4.00-5.20 [facility] Comment on above: Performed By: #### 5 7021-8 ####MELISA Galvan (92006)[facility] ()[address] [place] [address] WBC (Bld) [#/Vol] 5.0 x10*3/uL Normal 4.4-11.3 [facility] Comment on above: Performed By: #### 5 7021-8 ####MELISA Galvan ([id number])[facility] ()[address] [place] [facility] [place] [address] CBC w/ Auto Diffon 4 Basophil Absolute 0.1 E9/L Normal 0.0-0.2 [facility] Comment on above: Performed By: #### 2 348763, 57610354, 7803482, 6487508, 6430886, 5195880 ####[facility] [address] [place] [address] Basophils/100 WBC (Bld) 2.3 % High 0.0-2.0 [facility] Comment on above: Performed By: #### 2 840614, 75849966, 5817476, 7840355, 6058572, 6286251 ####[facility] [address] [place] [address] Eos Absolute 0.5 E9/L Normal 0.0-0.5 [facility] Comment on above: Performed By: #### 2 452986, 40247409, 7018075, 4832498, 0269587, 4168444 ####[address] [address] Eosinophils/100 WBC (Bld) 10.3 % High 0.0-8.0 [facility] Comment on above: Performed By: #### 2 586493, 65821040, 6301057, 7654755, 9952323, 8139374 ####[address] [address] Erythrocyte distribution width (RBC) [Ratio] 13.2 % Normal 10.9-14.2 [facility] Comment on above: Performed By: #### 2 795101, 40612599, 6033047, 3660080, 3482126, 4030484 ####[address] [address] Hematocrit (Bld) [Volume fraction] 38.0 % Normal 34.0-46.0 [facility] Comment on above: Performed By: #### 2 227787, 00635374, 2132015, 4838298, 3760176, 7757856 ####[address] [address] Hemoglobin (Bld) [Mass/Vol] 12.5 g/dL Normal 12.0-16.0 [facility] Comment on above: Performed By: #### 2 369242, 04339424, 8436652, 3592998, 0516572, 9572527 ####[address] [address] Lymph Absolute 1.5 E9/L Normal 1.0-4.0 [facility] Comment on above: Performed By: #### 2 850984, 94476759, 6899983, 6942775, 7279608, 0611345 ####[address] [address] Lymphocytes/100 WBC (Bld) 32.0 % Normal 14.0-50.0 [facility] Comment on above: Performed By: #### 2 362782, 38483741, 7423597, 4007715, 6440035, 7949288 ####[facility] [address] [place] [address] MCH (RBC) [Entitic mass] 29.7 pg Normal 27.0-34.0 [facility] Comment on above: Performed By: #### 2 480326, 28770407, 9210207, 6127221, 1633399, 9762755 ####[address] [address] MCHC (RBC) [Mass/Vol] 33.0 g/dL Normal 31.4-36.0 [facility] Comment on above: Performed By: #### 2 931329, 01395903, 5026334, 5343834, 8263516, 9810383 ####[address] [address] MCV (RBC) [Entitic vol] 89.8 fL Normal 80.0-100.0 [facility] Comment on above: Performed By: #### 2 872511, 84495883, 9503033, 4449345, 5051513, 9500994 ####[address] [address] Orange Absolute 0.3 E9/L Normal 0.2-1.0 [facility] Comment on above: Performed By: #### 2 124900, 24409044, 8101930, 4529289, 5452183, 3491050 ####[address] [address] Monocytes/100 WBC (Bld) 6.4 % Normal 4.0-14.0 [facility] Comment on above: Performed By: #### 2 226451, 69993250, 3334484, 7615004, 5189226, 7349606 ####[address] [place] [address] Neutro Absolute 2.3 E9/L Normal 2.0-7.5 [facility] Comment on above: Performed By: #### 2 733345, 31927199, 6007954, 4460933, 0091730, 4712308 ####[facility] [address] [place] [address] Neutro Auto 49.0 % Normal 36.0-75.0 [facility] Comment on above: Performed By: #### 2 733708, 32804099, 0259761, 5521552, 3049896, 4643561 ####[address] [address] Platelet 313.0 E9/L Normal 150.0-500.0 [facility] Comment on above: Performed By: #### 2 882597, 92395654, 6533784, 4221113, 4357130, 7362737 ####[address] [address] Platelet mean volume (Bld) [Entitic vol] 8.7 fL Normal 6.4-10.8 [facility] Comment on above: Performed By: #### 2 736668, 10628927, 5904032, 2567202, 8475202, 0117098 ####[address] [address] RBC 4.2 E12/L Low 4.3-5.9 [facility] Comment on above: Performed By: #### 2 536367, 05720424, 7355957, 4064653, 2022315, 1580436 ####[address] [address] WBC 4.8 E9/L Normal 4.0-11.0 [facility] Comment on above: Performed By: #### 2 465522, 32390186, 8395921, 8964900, 2244615, 5400886 ####[address] [address] CHEMISTRYOrdered By: SYSTEM SYSTEM on 03-16-2023 Albumin [...] and IV contrast. COMPARISON: None.. ACCESSION NUMBER(S): [id number] ORDERING CLINICIAN: TIFFANIE MENDEZ TECHNIQUE: Oral contrast [...] Corie Garza 03/16/2023 5:46 PM Dictation workstation: [id number] Normal [facility] CT Abdomen and Pelvis W cont rast Brenden 03-16-2023 Patchy ground-glass densities in the bilateral lung bases may represent atelectasis. Multiple cystic lesions scattered throughout both lobes of the liver. Postsurgical changes of Tan-en-Y gastric bypass. MACRO: none Signed by: Corie Garza 03/16/2023 5:46 PM Dictation workstation: [id number] Interpreted By: Corie Garza, STUDY: CT ABDOMEN PELVIS W IV CONTRAST; 03/16/2023 5:27 pm INDICATION: Signs/Symptoms:abdo kerry pain - with oral and IV contrast. COMPARISON: None.. ACCESSION NUMBER(S): [id number] ORDERING CLINICIAN: TIFFANIE MENDEZ TECHNIQUE: Oral contrast [...] and IV contrast. COMPARISON: None.. ACCESSION NUMBER(S): [id number] ORDERING CLINICIAN: TIFFANIE MENDEZ TECHNIQUE: Oral contrast [...] Corie Garza 03/16/2023 5:46 PM Dictation workstation: [id number] [facility] Work Phone: Radiology Study observation (narrative) [facility] Work Phone: CT Abdomen and Pelvis W cont rast IVOrdered By: Corie Garza on 03-16-2023 [facility] Work Phone: Comprehensive metabolic 2000 panelon 03-16-2023 Albumin [Mass/Vol] 3.0 g/dL Low 3.5 - 5.0 g/dL [facility] ALP (Bld) [Catalytic activity/Vol] 58 U/L 35 - 125 U/L [facility] ALT [Catalytic activity/Vol] 13 U/L 5 - 40 U/L [facility] Anion gap [Moles/Vol] 10 mmol/L NINF - 19 mmol/L [facility] AST [Catalytic activity/Vol] 32 U/L 5 - 40 U/L [facility] Bilirubin [Mass/Vol] mg/dL 0.1 - 1.2 mg/dL [facility] Calcium [Mass/Vol] 7.9 mg/dL Low 8.5 - 10.4 mg/dL [facility] Chloride [Moles/Vol] 110 mmol/L High 97 - 107 mmol/L [facility] CO2 [Moles/Vol] 21 mmol/L Low 24 - 31 mmol/L [facility] Creatinine [Mass/Vol] 0.80 mg/dL 0.40 - 1.60 mg/dL [facility] eGFR - PINF [facility] Comment on above: Calculations of jessica mated GFR are performed using the 2020 CKD-EPI Study Refit equation without the race variable for the IDMS-Traceable creatinine methods. https://jasn.asnjournals.org/content/early//ASN.01559757 88 Glucose [Mass/Vol] 82 mg/dL 65 - 99 mg/dL [facility] Interpretation and review of laboratory results Abnormal [facility] Potassium [Moles/Vol] 3.7 mmol/L 3.4 - 5.1 mmol/L [facility] Protein [Mass/Vol] 5.5 g/dL Low 5.9 - 7.9 g/dL [facility] Sodium [Moles/Vol] 141 mmol/L 133 - 145 mmol/L [facility] Urea nitrogen [Mass/Vol] 8 mg/dL 8 - 25 mg/dL [facility] Albumin [Mass/Vol] 3.0 g/dL Low 3.5-5.0 [facility] Comment on above: Performed By: #### 2 4323-8 ####MELISA Galvan ([id number])[facility] ()[address] [place] [address] ALP (Bld) [Catalytic activity/Vol] 58 U/L Normal 35-125 [facility] Comment on above: Performed By: #### 2 4323-8 ####MELISA Galvan (46063)[facility] ()[address] [place] [address] ALT [Catalytic activity/Vol] 13 U/L Normal 5-40 [facility] Comment on above: Performed By: #### 2 4323-8 ####MELISA Galvan ([id number])[facility] ()[address] [place] [address] Anion gap [Moles/Vol] 10 mmol/L Normal <=19 [facility] Comment on above: Performed By: #### 2 4323-8 ####MELISA Galvan (48099)[facility] ()[address] [place] [address] AST [Catalytic activity/Vol] 32 U/L Normal 5-40 [facility] Comment on above: Performed By: #### 2 4323-8 ####MELISA Galvan ([id number])[facility] ()[address] [place] [address] Bilirubin [Mass/Vol] mg/dL Normal 0.1-1.2 [facility] Comment on above: Performed By: #### 2 432-8 ####MELISA Galvan (56909)[facility] ()[address] [place] [address] Calcium [Mass/Vol] 7.9 mg/dL Low 8.5-10.4 [facility] Comment on above: Performed By: #### 2 4323-8 ####MELISA Galvan (03559)[facility] ()[address] [place] [address] Chloride [Moles/Vol] 110 mmol/L High 97-107 [facility] Comment on above: Performed By: #### 2 4323-8 ####MELISA Galvan ([id number])[facility] ()[address] [place] [address] CO2 [Moles/Vol] 21 mmol/L Low 24-31 [facility] Comment on above: Performed By: #### 2 4323-8 ####MELISA Galvan (80622)[facility] ()[address] [place] [address] Creatinine [Mass/Vol] 0.80 mg/dL Normal 0.40-1.60 [facility] Comment on above: Performed By: #### 2 4323-8 ####MELISA Galvan ([id number])[facility] ()[address] [place] [address] GFR/1.73 sq M.predicted MDRD (S/P/Bld) [Vol rate/Area] mL/min/{1.73_m2} Normal >60 [facility] Comment on above: Result Comment: Calc ulations of estimated GFR are performed using the 2020 CKD-EPI Study Refit equation without the race variable for the IDMS-Traceable creatinine methods. https://jasn.asnjournals.org/content/early//ASN.82514125 88 Performed By: #### 2 4323-8 ####MELISA Galvan ([id number])FORMERLY [facility] ()[address] [place] [address] Glucose [Mass/Vol] 82 mg/dL Normal 65-99 [facility] Comment on above: Performed By: #### 2 4323-8 ####MELISA Galvan ([id number])FORMERLY [facility] ()[address] [place] [address] Potassium [Moles/Vol] 3.7 mmol/L Normal 3.4-5.1 [facility] Comment on above: Performed By: #### 2 4323-8 ####MELISA Galvan ([id number])FORMERLY [facility] ()[address] [place] [address] Protein [Mass/Vol] 5.5 g/dL Low 5.9-7.9 [facility] Comment on above: Performed By: #### 2 4323-8 ####MELISA Galvan ([id number])FORMERLY [facility] ()[address] [place] [address] Sodium [Moles/Vol] 141 mmol/L Normal 133-145 [facility] Comment on above: Performed By: #### 2 4323-8 ####MELISA POOLESarwat Galvan ([id number])FORMERLY [facility] ()[address] [place] [address] Urea nitrogen [Mass/Vol] 8 mg/dL Normal 8-25 [facility] Comment on above: Performed By: #### 2 4323-8 ####MELISA POOLESarwat Galvan ([id number])FORMERLY [facility] ()[address] [place] [address] Consent for Treatmenton 02-17 Consent for Treatment [id number] 972#1.00TIFF Normal [facility] Discharge Instructionson Discharge Instructions [id number] 21#1.00TIFF Normal [facility] Comment on above: Other Comment: wrong folder ED Clinical Summaryon 2023 ED Clinical Summary Normal [facility] ED Note-Nursingon 03-16-2023 ED Note-Nursing called report to Thu PRICE, . Normal [facility] ED Note-Physicianon 03-16-19 ED Note-Physician Normal [facility] Comment on above: Result Comment: Elec tronically Signed By: Earnest Jett DO\.br\Date and Time Signed: 03/16/23 11:17 EST ED Patient Education Noteon 03-16-2023 ED Patient Education Note Normal [facility] ED Patient Summaryon 024 ED Patient Summary Normal [facility] HEMATOLOGYOrdered By: SYSTEM SYSTEM on 03-16-2023 [...] Normal 80.0 - 100.0 fL Remisol Heme Orange Absolute 0.3 E9/L Normal 0.2 - 1.0 [...] 03-16-2023 Albumin [Mass/Vol] 3.8 g/dL Normal 3.3-5.0 [facility] Comment on above: Performed By: #### 2 764098, 69037392, 9150554, 7201576, 3811347, 7181801 ####[facility] [address] [place] [address] Albumin/Globulin [Mass ratio] 1.5 {ratio} Normal 1.1-2.2 [facility] Comment on above: Performed By: #### 2 414107, 17545422, 1557536, 8333048, 7656380, 0052706 ####[facility] [address] [place] [address] Alk Phos 62 Int._Unit/L Normal 21-98 [facility] Comment on above: Performed By: #### 2 358026, 71413774, 1986329, 0958032, 0990537, 0024874 ####[facility] [address] [place] [address] ALT 21 Int._Unit/L Normal 6-46 [facility] Comment on above: Performed By: #### 2 056625, 51343865, 9527124, 5890538, 2808076, 0470389 ####[address] [address] AST 37 Int._Unit/L Normal 5-43 [facility] Comment on above: Performed By: #### 2 645523, 60980773, 1256588, 0037690, 2994045, 7839716 ####[facility] [address] [place] [address] Bili Direct 0.1 mg/dL Normal 0.0-0.4 [facility] Comment on above: Performed By: #### 2 224174, 76092454, 8098160, 3425693, 3957064, 7359457 ####[facility] [address] [place] [address] Bili Indirect 0.2 mg/dL Normal 0.1-0.9 [facility] Comment on above: Performed By: #### 2 926242, 37886921, 0919879, 5493133, 4058944, 6133094 ####[facility] [address] [place] [address] Bili Total 0.3 mg/dL Normal 0.0-1.1 [facility] Comment on above: Performed By: #### 2 957731, 90217894, 4872398, 8634016, 8123737, 4988371 ####[facility] [address] [place] [address] Globulin (S) [Mass/Vol] 2.6 g/dL Normal 1.4-4.0 [facility] Comment on above: Performed By: #### 2 131845, 98389870, 6731191, 0495017, 7752487, 3128359 ####[facility] [address] [place] [address] Protein [Mass/Vol] 6.4 g/dL Normal 6.0-7.8 [facility] Comment on above: Performed By: #### 2 940716, 12936674, 9438340, 1795727, 9898372, 3142279 ####[facility] [address] [place] [address] Influenza virus A and B and SARS-CoV-2 (COVID-19) identified HANK+probe Nom (Resp)on 03-16-2023 FLUAV RNA HANK+probe Ql (Resp) Not detected Not Detected [facility] FLUBV RNA HANK+probe Ql (Resp) Not detected Not Detected [facility] Interpretation and review of laboratory results Normal [facility] SARS-CoV-2 (COVID-19) RNA HANK+probe Ql (Resp) Not detected Not Detected [facility] This assay has received FDA Emergency [...] and has been validated for use at [facility]. Negative results do not preclude COVID-19 infections or Influenza A/B infections, and should not be used as the sole basis for diagnosis, treatment, or other management decisions. If Influenza A/B and RSV PCR results are negative, testing for Parainfluenza virus, Adenovirus and Metapneumovirus is routinely performed for [facility] pediatric oncology and intensive care inpatients, and is available on other patients by placing an add-on request. [facility] FLUAV RNA HANK+probe Ql (Resp) Not detected Normal Not Detected [facility] Comment on above: Order Comment: This assay [...] and has been validated for use at [facility]. Negative results do not preclude COVID-19 infections or Influenza A/B infections, and should not be used as the sole basis for diagnosis, treatment, or other management decisions. If Influenza A/B and RSV PCR results are negative, testing for Parainfluenza virus, Adenovirus and Metapneumovirus is routinely performed for [facility] pediatric oncology and intensive care inpatients, and is available on other patients by placing an add-on request. Performed By: #### 5 2969-3 #### ALON Johnson ([id number]) [facility] ([facility]) [address] [place] [address] FLUBV RNA HANK+probe Ql (Resp) Not detected Normal Not Detected [facility] Comment on above: Order Comment: This assay [...] and has been validated for use at [facility]. Negative results do not preclude COVID-19 infections or Influenza A/B infections, and should not be used as the sole basis for diagnosis, treatment, or other management decisions. If Influenza A/B and RSV PCR results are negative, testing for Parainfluenza virus, Adenovirus and Metapneumovirus is routinely performed for [facility] pediatric oncology and intensive care inpatients, and is available on other patients by placing an add-on request. Performed By: #### 5 2969-3 #### ALON Johnson ([id number]) [facility] ([facility]) [address] [place] [address] SARS-CoV-2 (COVID-19) RNA HANK+probe Ql (Resp) Not detected Normal Not Detected [facility] Comment on above: Order Comment: This assay [...] and has been validated for use at [facility]. Negative results do not preclude COVID-19 infections or Influenza A/B infections, and should not be used as the sole basis for diagnosis, treatment, or other management decisions. If Influenza A/B and RSV PCR results are negative, testing for Parainfluenza virus, Adenovirus and Metapneumovirus is routinely performed for [facility] pediatric oncology and intensive care inpatients, and is available on other patients by placing an add-on request. Performed By: #### 5 2969-3 #### ALON Johnson ([id number]) [facility] ([facility]) [address] [id number] Lactic Acidon 03-16-2023 Lactic Acid Lvl 0.6 mmol/L Normal 0.5-2.2 [facility] Comment on above: Performed By: #### 2 958384, 43040281, 5388427, 8724270, 6981552, 1384681 ####[facility] [address] [place] [address] Lipase Levelon 03-16-2023 Lipase Lvl 95 unit/L High 13-58 [facility] Comment on above: Performed By: #### 2 432235, 48843238, 2627341, 5257016, 1608250, 7588981 ####[facility] [address] [place] [address] Pre-Arrival Noteon Pre-Arrival Note Normal [facility] Transfer Documentson 024 Transfer Documents [id number] 04#1.00TIFF Normal [facility] eGFRon 03-16-2023 eGFR 99 mL/min/1.73 m2 Normal >=59 [facility] Comment on above: Order Comment: Order added by Discern Expert. Performed By: #### 2 106897, 20249667, 1050198, 2441974, 4101699, 1056758 ####[facility] [address] [place] [address] BB Draw & Holdon 03-15-2023 BB D&H Sample drawn for Blood Ba Normal [facility] Comment on above: Performed By: #### 2 813143, 53914689, 72975165, 2444944, 6335588, 4482123, 34524336, 5248714, 97926103 ####[facility] [address] [place] [address] BMPon 03-15-2023 Anion gap [Moles/Vol] 12 mmol/L Normal 6-16 [facility] Comment on above: Performed By: #### 2 903743, 37001562, 23174650, 2813554, 4225597, 4142868, 26949827, 4309050, 89550530 ####[facility] [address] [place] [address] BUN/Creat Ratio 10 No Units Normal 10-20 [facility] Comment on above: Performed By: #### 2 927923, 32992136, 00514358, 3153070, 4895029, 4814467, 16712001, 0579409, 39442503 ####[facility] [address] [place] [address] Calcium [Mass/Vol] 8.5 mg/dL Low 8.9-11.1 [facility] Comment on above: Performed By: #### 2 347950, 01120145, 41442125, 1547885, 8208303, 7210182, 60001102, 4628635, 11082721 ####[facility] [address] [place] [address] Chloride [Moles/Vol] 110 mmol/L Normal 101-111 [facility] Comment on above: Performed By: #### 2 744908, 50875459, 27899818, 9845787, 5074405, 1507583, 59961305, 4767675, 71828758 ####[facility] [address] [place] [address] CO2 [Moles/Vol] 22 mmol/L Normal 21-31 [facility] Comment on above: Performed By: #### 2 341615, 41772369, 89037033, 2675366, 5218354, 9377618, 29651316, 3882703, 80343908 ####[facility] [address] [place] [address] Creatinine [Mass/Vol] 0.8 mg/dL Normal 0.5-1.3 [facility] Comment on above: Performed By: #### 2 149827, 53486210, 82705774, 1158313, 3661220, 5770842, 23638633, 4920584, 24760271 ####[facility] [address] [place] [address] Glucose [Mass/Vol] 79 mg/dL Normal 55-199 [facility] Comment on above: Performed By: #### 2 105216, 10114846, 79837221, 9102485, 4042641, 2815858, 68596605, 0565362, 36795503 ####[facility] [address] [place] [address] Potassium [Moles/Vol] 3.6 mmol/L Normal 3.5-5.3 [facility] Comment on above: Performed By: #### 2 205813, 43450774, 71842507, 1738579, 7658799, 9283715, 23136895, 3758143, 88268341 ####[facility] [address] [place] [address] Sodium [Moles/Vol] 140 mmol/L Normal 135-145 [facility] Comment on above: Performed By: #### 2 539794, 27849504, 06953201, 6642532, 6387242, 3153991, 81911769, 5297286, 85686404 ####[facility] [address] [place] [address] Urea nitrogen [Mass/Vol] 8 mg/dL Normal 5-21 [facility] Comment on above: Performed By: #### 2 532615, 58734674, 42485516, 0659678, 4755767, 8303888, 25669502, 7513637, 16741095 ####[facility] [address] [place] [address] CBC w/ Auto Diffon 4 Basophil Absolute 0.1 E9/L Normal 0.0-0.2 [facility] Comment on above: Performed By: #### 2 867015, 98832851, 29396439, 3869490, 9933801, 9257638, 34759099, 0699401, 00908444 ####[facility] [address] [place] [address] Basophils/100 WBC (Bld) 0.9 % Normal 0.0-2.0 [facility] Comment on above: Performed By: #### 2 340155, 94134536, 76283723, 1608851, 7294126, 0725806, 98015448, 5343445, 76643339 ####[address] [place] [address] Eos Absolute 0.6 E9/L High 0.0-0.5 [facility] Comment on above: Performed By: #### 2 833789, 42214907, 43484103, 1854698, 9361328, 4164464, 99111922, 6820719, 37073872 ####[address] [place] [address] Eosinophils/100 WBC (Bld) 9.6 % High 0.0-8.0 [facility] Comment on above: Performed By: #### 2 409547, 46939411, 98889498, 5175220, 9477370, 2033815, 81668440, 5377713, 94269738 ####[address] [place] [address] Erythrocyte distribution width (RBC) [Ratio] 13.2 % Normal 10.9-14.2 [facility] Comment on above: Performed By: #### 2 239123, 85027697, 16795417, 6938795, 2720794, 3591285, 18280135, 5618482, 40874530 ####[address] [place] [address] Hematocrit (Bld) [Volume fraction] 36.0 % Normal 34.0-46.0 [facility] Comment on above: Performed By: #### 2 080824, 77503858, 07763798, 2304485, 0168632, 1942992, 19568888, 5344307, 47025175 ####[facility] [address] [place] [address] Hemoglobin (Bld) [Mass/Vol] 12.2 g/dL Normal 12.0-16.0 [facility] Comment on above: Performed By: #### 2 949326, 44131961, 36262888, 9261569, 1366314, 7591751, 66052964, 8391647, 51227083 ####[address] [place] [address] Lymph Absolute 2.0 E9/L Normal 1.0-4.0 [facility] Comment on above: Performed By: #### 2 417752, 80522273, 92267519, 6772929, 4696850, 1657497, 41734671, 7431934, 19906153 ####[address] [address] Lymphocytes/100 WBC (Bld) 32.4 % Normal 14.0-50.0 [facility] Comment on above: Performed By: #### 2 087534, 59573164, 13249677, 1669536, 6385070, 8132436, 18241988, 7571011, 21455191 ####[address] [place] [address] MCH (RBC) [Entitic mass] 30.6 pg Normal 27.0-34.0 [facility] Comment on above: Performed By: #### 2 668060, 99899958, 71008949, 5537089, 4546922, 9491183, 83904114, 9811247, 02884620 ####[address] [place] [address] MCHC (RBC) [Mass/Vol] 34.3 g/dL Normal 31.4-36.0 [facility] Comment on above: Performed By: #### 2 738002, 21368470, 85597301, 6759447, 8494817, 7002196, 16850510, 4512395, 87939808 ####[facility] [address] [place] [address] MCV (RBC) [Entitic vol] 89.0 fL Normal 80.0-100.0 [facility] Comment on above: Performed By: #### 2 091942, 02895635, 49188417, 5814382, 5042895, 8759344, 40768848, 7478337, 81527331 ####[facility] [address] [place] [address] Orange Absolute 0.3 E9/L Normal 0.2-1.0 [facility] Comment on above: Performed By: #### 2 879274, 24263850, 84264767, 2162264, 5175205, 7185380, 44889545, 7930861, 28299341 ####[facility] [address] [place] [address] Monocytes/100 WBC (Bld) 5.6 % Normal 4.0-14.0 [facility] Comment on above: Performed By: #### 2 875703, 95099717, 96495271, 8240296, 3830183, 0490324, 98863718, 0665367, 08727774 ####[facility] [address] [place] [address] Neutro Absolute 3.2 E9/L Normal 2.0-7.5 [facility] Comment on above: Performed By: #### 2 657006, 22522042, 84852770, 1587106, 1267145, 0440021, 42076744, 4418657, 81295504 ####[facility] [address] [place] [address] Neutro Auto 51.5 % Normal 36.0-75.0 [facility] Comment on above: Performed By: #### 2 824928, 30511080, 04431589, 0979798, 6564508, 5748983, 27097880, 1476607, 13785869 ####[facility] [address] [place] [address] Platelet 309.0 E9/L Normal 150.0-500.0 [facility] Comment on above: Result Comment: Demetra meneses with slide review Performed By: #### 2 893736, 81904690, 44148262, 8998882, 0259878, 4433044, 93643505, 4123340, 73775587 ####[facility] [address] [place] [address] Platelet mean volume (Bld) [Entitic vol] 9.1 fL Normal 6.4-10.8 [facility] Comment on above: Performed By: #### 2 761446, 09103555, 37587732, 2681803, 6161482, 4362410, 97493676, 9419599, 41222536 ####[facility] [address] [place] [address] RBC 4.0 E12/L Low 4.3-5.9 [facility] Comment on above: Performed By: #### 2 952140, 66470974, 54792884, 5451728, 6328928, 9370417, 55470948, 4185765, 11847880 ####[facility] [address] [place] [address] WBC 6.1 E9/L Normal 4.0-11.0 [facility] Comment on above: Performed By: #### 2 823593, 60678979, 79023730, 6941164, 9640316, 9874248, 54844597, 2819971, 61827079 ####[facility] [address] [place] [address] CHEMISTRYOrdered By: SYSTEM SYSTEM on 03-15-2023 Lactic [...] 32.3 s Normal 25.1 - 36.5 second(s) [facility] Auto Coag Comment on above: Interpretive Data: [...] the same coagulation reagent and instrumentation as [facility]. Currently there are no coagulation studies available worldwide for children to 14 days, and no normal ranges. Heparin therapeutic range (represented by Anti-Factor Xa activity of 0.2 - 0.4 U/mL) corresponds to PTT of 56.6 - 109.0 sec. INR Coag (PPP) [Relative time] 1.1 {INR} Invalid Interpretation Code [facility] Auto Coag Comment on above: Interpretive Data: I NR results are specifically intended to assess patients stabilized on long-term Anticoagulation therapy suggested INR s Less Intensive Anticoagulation 2.0 3.0 Conventional Range 3.0 4.5 PT Coag (PPP) [Time] 12.6 s High 9.4 - 12.5 second(s) [facility] Auto Coag Comment on above: Interpretive Data: [...] the same coagulation reagent and instrumentation as [facility]. Currently there are no coagulation studies available worldwide for children to 14 days, and no normal ranges. CT Abdomen/Pelvis w/o Contra ston 03-15-2023 CT Abdomen/Pelvis w/o Contrast Normal [facility] Consent for Treatmenton 02-16 Consent for Treatment [id number] 3B#1.00TIFF Normal [facility] Discharge Instructionson Discharge Instructions [id number] 236#1.00TIFF Normal [facility] ED Clinical Summaryon 2023 ED Clinical Summary Normal [facility] ED Note-Physicianon 03-15-19 ED Note-Physician Normal [facility] Comment on above: Result Comment: Elec tronically Signed By: Earnest Jett DO\.br\Date and Time Signed: 03/15/23 17:31 EST ED Patient Education Noteon 03-15-2023 ED Patient Education Note Normal [facility] ED Patient Summaryon 024 ED Patient Summary Normal [facility] EMS Documentationon 03-15-19 EMS Documentation Please click on link to see report Normal [facility] Comment on above: Result Comment: Miss [...] Normal 80.0 - 100.0 fL Remisol Heme Orange Absolute 0.3 E9/L Normal 0.2 - 1.0 [...] 03-15-2023 Albumin [Mass/Vol] 3.6 g/dL Normal 3.3-5.0 [facility] Comment on above: Performed By: #### 2 014431, 93673290, 89208342, 7029841, 7423867, 9158114, 64702729, 5006989, 11865145 ####[facility] [address] [place] [address] Albumin/Globulin [Mass ratio] 1.4 {ratio} Normal 1.1-2.2 [facility] Comment on above: Performed By: #### 2 459723, 23053822, 51157907, 3534568, 1747122, 6205854, 54813184, 4495670, 59963040 ####[facility] [address] [place] [address] Alk Phos 64 Int._Unit/L Normal 21-98 [facility] Comment on above: Performed By: #### 2 395553, 29624254, 85289335, 8160907, 6216039, 6955768, 67554116, 3351592, 43330642 ####[facility] [address] [place] [address] ALT 20 Int._Unit/L Normal 6-46 [facility] Comment on above: Performed By: #### 2 837954, 68925864, 57169027, 8710389, 7692110, 1214587, 52896821, 9264748, 70800597 ####[facility] [address] [place] [address] AST 35 Int._Unit/L Normal 5-43 [facility] Comment on above: Performed By: #### 2 230247, 49999795, 53559818, 0627788, 9782374, 8543270, 63796424, 6769608, 79355604 ####[facility] [address] [place] [address] Bili Direct 0.0 mg/dL Normal 0.0-0.4 [facility] Comment on above: Performed By: #### 2 555403, 21151824, 92842859, 6313363, 0488524, 2312444, 56452868, 8927489, 44219883 ####[facility] [address] [place] [address] Bili Indirect 0.2 mg/dL Normal 0.1-0.9 [facility] Comment on above: Performed By: #### 2 579945, 60687227, 55843003, 8067978, 5190192, 9324996, 83436794, 8597492, 09319747 ####[facility] [address] [place] [address] Bili Total 0.2 mg/dL Normal 0.0-1.1 [facility] Comment on above: Performed By: #### 2 370226, 14588947, 83428839, 8874305, 7949180, 9665780, 70904813, 7436330, 67349812 ####[address] [place] [address] Globulin (S) [Mass/Vol] 2.6 g/dL Normal 1.4-4.0 [facility] Comment on above: Performed By: #### 2 938061, 68762587, 60111332, 5582831, 6706254, 3012634, 29860905, 7814175, 12993955 ####[facility] [address] [place] [address] Protein [Mass/Vol] 6.2 g/dL Normal 6.0-7.8 [facility] Comment on above: Performed By: #### 2 150153, 76060343, 49635128, 8217101, 1211086, 0610877, 39507210, 5552508, 59062749 ####[address] [place] [address] Home [facility] Recordson 2023 Home Health Records [id number] 1#1.00TIFF Normal [facility] Lactic Acidon 03-15-2023 Lactic Acid Lvl 0.7 mmol/L Normal 0.5-2.2 [facility] Comment on above: Performed By: #### 2 113070, 22998135, 79836100, 2072193, 4170121, 0458127, 35955209, 1215539, 25088945 ####[facility] [address] [place] [address] Lipase Levelon 03-15-2023 Lipase Lvl 115 unit/L High 13-58 [facility] Comment on above: Performed By: #### 2 092859, 83470179, 28846095, 6533964, 8646760, 0709184, 24359788, 0641488, 90802797 ####[facility] [address] [place] [address] PT & PTTon 03-15-2023 aPTT Coag (PPP) [Time] 32.3 second(s) Normal 25.1-36.5 [facility] Comment on above: Result Comment: Para [...] the same coagulation reagent and instrumentation as [facility]. Currently there are no coagulation studies available worldwide for children to 14 days, and no normal ranges. Heparin therapeutic range (represented by Anti-Factor Xa activity of 0.2 - 0.4 U/mL) corresponds to PTT of 56.6 - 109.0 sec. Performed By: #### 2 945922, 36233323, 67988779, 2234298, 4990442, 0590088, 94150992, 4241660, 00842841 ####[facility] [address] [place] [address] INR Coag (PPP) [Relative time] 1.1 {INR} Invalid Interpretation Code [facility] Comment on above: Result Comment: INR results are specifically intended to assess patients stabilized on long-term Anticoagulation therapy suggested INR?s ?Less Intensive Anticoagulation? 2.0 ? 3.0Conventional Range 3.0 ? 4.5 Performed By: #### 2 [id number], [id number], 36051645, 6220217, 0900770, 9232039, 77934010, 6169903, 16361428 ####[facility] [address] [place] [address] PT Coag (PPP) [Time] 12.6 second(s) High 9.4-12.5 [facility] Comment on above: Result Comment: 15 [...] the same coagulation reagent and instrumentation as [facility]. Currently there are no coagulation studies available worldwide for children to 14 days, and no normal ranges. Performed By: #### 2 314772, [id number], 06075427, 3303132, 2426441, 3392014, 28778223, 2059626, 95116379 ####[facility] [address] [place] [address] Pre-Arrival Noteon Pre-Arrival Note Normal [facility] Troponin 0 Hr.on 03-15-2023 Troponin I.cardiac [Mass/Vol] ng/mL Low 10.10-27.10 [facility] Comment on above: Result Comment: The 95% CI (Confidence Interval) PPV (Positive Predictive Value) for myocardial infarction in females is 38 pg/mL, in males 51 pg/mL. The results should be used in conjunction with clinical conditions of myocardial infarction.(Access High Sensitivity Troponin I Instructions For Use, Alan Strathmore, September 2017) Performed By: #### 2 790061, 28814099, 18671476, 2119095, 8496810, 2976008, 30385398, 5597773, 99588868 ####[facility] [address] [place] [address] UA With Cult Reflexon 2023 Bilirubin Ql (U) Negative Normal Negative [facility] Comment on above: Performed By: #### 1 9456091 ####[address] [address] Clarity (U) CLEAR Normal Clear [facility] Comment on above: Performed By: #### 1 1320494 ####[address] [address] Color (U) ORANGE Abnormal Yellow [facility] Comment on above: Performed By: #### 1 [id number] ####[facility] [address] [place] [address] Crystals LM Ql (Urine sed) Present Normal [facility] Comment on above: Performed By: #### 1 7884387 ####[address] [address] Epithelial cells.squamous LM.HPF (Urine sed) [#/Area] 0-2 Normal 0-2 [facility] Comment on above: Performed By: #### 1 6911763 ####[facility] [address] [place] [address] Glucose Test strip (U) [Mass/Vol] TRACE Abnormal Negative [facility] Comment on above: Performed By: #### 1 1790933 ####[facility] [address] [place] [address] Hemoglobin Ql (U) Negative Normal Negative [facility] Comment on above: Performed By: #### 1 6130896 ####[address] [address] Ketones (U) [Mass/Vol] Negative Normal Negative [facility] Comment on above: Performed By: #### 1 9442786 ####[address] [address] [place].plasma/Lith ium.RBC (Bld) [Mass ratio] 0-3 Normal 0-3 [facility] Comment on above: Performed By: #### 1 5745535 ####[address] [address] Nitrite Ql (U) See Comment Normal Negative [facility] Comment on above: Result Comment: Test Not Performed Due To Interfering Substance Performed By: #### 1 4527445 ####[address] [address] pH (U) 7.0 [pH] Invalid Interpretation Code 5.0-9.0 [facility] Comment on above: Performed By: #### 1 2894646 ####[address] [address] Protein (U) [Mass/Vol] 1+ Abnormal Negative [facility] Comment on above: Performed By: #### 1 2797747 ####[address] [address] Specific gravity (U) [Rel density] 1.010 Invalid Interpretation Code 1.005-1.030 [facility] Comment on above: Performed By: #### 1 3220336 ####[address] [address] Type of Urine collection method Clean Catch Normal [facility] Comment on above: Performed By: #### 1 4013692 ####[address] [address] Urobilinogen Qn (U) See Comment Normal 0.0-1.0 [facility] Comment on above: Result Comment: Test Not Performed Due To Interfering Substance Performed By: #### 1 7415200 ####[address] [place] [address] WBC Auto Ql (U) Negative Normal Negative [facility] Comment on above: Performed By: #### 1 8495784 ####[facility] [address] [place] [address] WBC LM.HPF (Urine sed) [#/Area] 0-5 Normal 0-5 [facility] Comment on above: Performed By: #### 1 8471957 ####[facility] [address] [place] [address] URINALYSISOrdered By: Alcira Lee on 03-15-2023 Bilirubin Ql (U) Negative (03/15/23 2:43 PM) Normal Negative [facility] UA Auto SS Clarity (U) Clear (03/15/23 2:43 PM) Normal Clear [facility] UA Auto SS Color (U) [place] *ABN* (03/15/23 2:43 PM) Invalid Interpretation Code [...] PM) Normal Negative [facility] UA Auto SS [place].plasma/Lith ium.RBC (Bld) [Mass ratio] 0-3 /HPF Normal [...] (Urine sed) [#/Area] 0-5 /HPF Normal 0-5/HPF [facility] UA Auto SS XR Chest Single Viewon 03-15 XR Chest Single View Normal [facility] eGFRon 03-15-2023 eGFR 99 mL/min/1.73 m2 Normal >=59 [facility] Comment on above: Order Comment: Order added by Discern Expert. Performed By: #### 2 274642, 78695383, 63132503, 9397757, 4330333, 2253250, 25737910, 6247733, 13622217 ####[facility] [address] [place] [address] Basic metabolic 2000 panelon 03-10-2023 Anion gap [Moles/Vol] 11 mmol/L NINF - 19 mmol/L [facility] Calcium [Mass/Vol] 8.0 mg/dL Low 8.5 - 10.4 mg/dL [facility] Chloride [Moles/Vol] 108 mmol/L High 97 - 107 mmol/L [facility] CO2 [Moles/Vol] 22 mmol/L Low 24 - 31 mmol/L [facility] Creatinine [Mass/Vol] 0.60 mg/dL 0.40 - 1.60 mg/dL [facility] eGFR - PINF [facility] Comment on above: Calculations of jessica mated GFR are performed using the 2020 CKD-EPI Study Refit equation without the race variable for the IDMS-Traceable creatinine methods. https://jasn.asnjournals.org/content//ASN.54985545 88 Glucose [Mass/Vol] 89 mg/dL 65 - 99 mg/dL [facility] Interpretation and review of laboratory results Abnormal [facility] Potassium [Moles/Vol] 3.7 mmol/L 3.4 - 5.1 mmol/L [facility] Sodium [Moles/Vol] 141 mmol/L 133 - 145 mmol/L [facility] Urea nitrogen [Mass/Vol] 4 mg/dL Low 8 - 25 mg/dL [facility] Anion gap [Moles/Vol] 11 mmol/L Normal <=19 [facility] Comment on above: Performed By: #### 5 2969-3 #### ALON AMBROSIO L ([id number]) [facility] ([facility]) [address] [place] [address] Calcium [Mass/Vol] 8.0 mg/dL Low 8.5-10.4 [facility] Comment on above: Performed By: #### 5 2969-3 #### ALON AMBROSIO L ([id number]) [facility] ([facility]) [address] [place] [address] Chloride [Moles/Vol] 108 mmol/L High 97-107 [facility] Comment on above: Performed By: #### 5 2969-3 #### ALON MARINMOTZER L ([id number]) [facility] ([facility]) [address] [place] [address] CO2 [Moles/Vol] 22 mmol/L Low 24-31 [facility] Comment on above: Performed By: #### 5 2969-3 #### ALON AMBROSIO L ([id number]) [facility] ([facility]) [address] [place] [address] Creatinine [Mass/Vol] 0.60 mg/dL Normal 0.40-1.60 [facility] Comment on above: Performed By: #### 5 2969-3 #### ALON AMBROSIO L ([id number]) [facility] ([facility]) [address] [place] [address] GFR/1.73 sq M.predicted MDRD (S/P/Bld) [Vol rate/Area] mL/min/{1.73_m2} Normal >60 [facility] Comment on above: Result Comment: Calc ulations of estimated GFR are performed using the 2020 CKD-EPI Study Refit equation without the race variable for the IDMS-Traceable creatinine methods. https://jasn.asnjournals.org/content/early//ASN.72909802 88 Performed By: #### 5 2969-3 #### ALON PRECIADOER L ([id number]) [facility] ([facility]) [address] [place] [address] Glucose [Mass/Vol] 89 mg/dL Normal 65-99 [facility] Comment on above: Performed By: #### 5 2969-3 #### ALON MARINMOTZER L ([id number]) [facility] ([facility]) [address] [place] [address] Potassium [Moles/Vol] 3.7 mmol/L Normal 3.4-5.1 [facility] Comment on above: Performed By: #### 5 2969-3 #### ALON SCHMOTZER L ([id number]) [facility] ([facility]) [address] [place] [address] Sodium [Moles/Vol] 141 mmol/L Normal 133-145 [facility] Comment on above: Performed By: #### 5 2969-3 #### ALON SCHMOTZER L ([id number]) [facility] ([facility]) [address] [place] [address] Urea nitrogen [Mass/Vol] 4 mg/dL Low 8-25 [facility] Comment on above: Performed By: #### 5 2969-3 #### ALON SCHMOTZER L ([id number]) [facility] ([facility]) [address] [place] [address] CBC panel Auto (Bld)on 03-10 Erythrocyte distribution width (RBC) [Ratio] 12.9 % 11.5 - 14.5 % [facility] Hematocrit (Bld) [Volume fraction] 31.3 % Low 36.0 - 46.0 % [facility] Hemoglobin (Bld) [Mass/Vol] 10.6 g/dL Low 12.0 - 16.0 g/dL [facility] Interpretation and review of laboratory results Abnormal [facility] MCH (RBC) [Entitic mass] 30.7 pg 26.0 - 34.0 pg [facility] MCHC (RBC) [Mass/Vol] 33.9 g/dL 32.0 - 36.0 g/dL [facility] MCV (RBC) [Entitic vol] 91 fL 80 - 100 fL [facility] Nucleated RBC/100 WBC (Bld) [Ratio] 0.0 % [facility] Platelets (Bld) [#/Vol] 215 10*3/uL [facility] RBC (Bld) [#/Vol] 3.45 10*6/uL [facility] WBC (Bld) [#/Vol] 4.0 10*3/uL [facility] Erythrocyte distribution width (RBC) [Ratio] 12.9 % Normal 11.5-14.5 [facility] Comment on above: Performed By: #### 5 2969-3 #### ALON Johnson ([id number]) [facility] ([facility]) [address] [place] [address] Hematocrit (Bld) [Volume fraction] 31.3 % Low 36.0-46.0 [facility] Comment on above: Performed By: #### 5 2969-3 #### ALON Johnson ([id number]) [facility] ([facility]) [address] [place] [address] Hemoglobin (Bld) [Mass/Vol] 10.6 g/dL Low 12.0-16.0 [facility] Comment on above: Performed By: #### 5 2969-3 #### ALON Johnson ([id number]) [facility] ([facility]) [address] [place] [address] MCH (RBC) [Entitic mass] 30.7 pg Normal 26.0-34.0 [facility] Comment on above: Performed By: #### 5 2969-3 #### ALON Johnson ([id number]) [facility] ([facility]) [address] [place] [address] MCHC (RBC) [Mass/Vol] 33.9 g/dL Normal 32.0-36.0 [facility] Comment on above: Performed By: #### 5 2969-3 #### ALON Johnson ([id number]) [facility] ([facility]) [address] [place] [address] MCV (RBC) [Entitic vol] 91 fL Normal 80-100 [facility] Comment on above: Performed By: #### 5 2969-3 #### ALON Johnson ([id number]) [facility] ([facility]) [address] [place] [address] Nucleated RBC/100 WBC (Bld) [Ratio] 0.0 /100 WBCs Normal 0.0-0.0 [facility] Comment on above: Performed By: #### 5 2969-3 #### ALON Johnson ([id number]) [facility] ([facility]) [address] [place] [address] Platelets (Bld) [#/Vol] 215 x10*3/uL Normal 150-450 [facility] Comment on above: Performed By: #### 5 2969-3 #### ALON Johnson ([id number]) [facility] ([facility]) [address] [place] [address] RBC (Bld) [#/Vol] 3.45 x10*6/uL Low 4.00-5.20 [facility] Comment on above: Performed By: #### 5 2969-3 #### ALON Johnson ([id number]) [facility] ([facility]) [address] [place] [address] WBC (Bld) [#/Vol] 4.0 x10*3/uL Low 4.4-11.3 [facility] Comment on above: Performed By: #### 5 2969-3 #### ALON Johnson ([id number]) [facility] ([facility]) [address] [place] [address] Gastrointestinal pathogens i dentified HANK+probe Nom (Stl)Ordered By: Edwige Bronson on 03-10-2023 Campylobacter Group Not detected Not Detected [facility] E. coli stx1 gene HANK+probe Ql (Stl) Not detected Not Detected [facility] E. coli stx2 gene HANK+probe Ql (Stl) Not detected Not Detected [facility] Interpretation and review of laboratory results Normal [facility] Norovirus genogroup I and II RNA HANK+probe Nom (Stl) Not detected Not Detected [facility] Rotavirus RNA HANK+probe Nom (Stl) Not detected Not Detected [facility] Salmonella species Not detected Not Detected [facility] Shigella sp DNA HANK+probe Ql (Unsp spec) Not detected Not Detected [facility] Vibrio Group Not detected Not Detected [facility] Y. enterocolitica DNA HANK+probe Ql (Stl) Not detected Not Detected [facility] Glucose Test strip manual (B ld) [Mass/Vol]on 03-10-2023 Glucose [Mass/Vol] 104 mg/dL High 74 - 99 mg/dL [facility] Interpretation and review of laboratory results Abnormal [facility] Glucose [Mass/Vol] 104 mg/dL High 74-99 [facility] Comment on above: Performed By: #### 5 2969-3 #### ALON Johnson ([id number]) [facility] ([facility]) [address] [place] [id number] Glucose [Mass/Vol] 82 mg/dL 74 - 99 mg/dL [facility] Glucose [Mass/Vol] 109 mg/dL High 74 - 99 mg/dL [facility] Interpretation and review of laboratory results Normal [facility] Interpretation and review of laboratory results Abnormal [facility] Glucose [Mass/Vol] 109 mg/dL High 74-99 [facility] Comment on above: Performed By: #### 5 2969-3 #### ALON Johnson ([id number]) [facility] ([facility]) [address] [place] [address] Glucose [Mass/Vol] 84 mg/dL 74 - 99 mg/dL [facility] Interpretation and review of laboratory results Normal [facility] Glucose [Mass/Vol] 84 mg/dL Normal 74-99 [facility] Comment on above: Performed By: #### 5 2969-3 #### ALON Johnson ([id number]) [facility] ([facility]) [address] [place] [address] Glucose [Mass/Vol] 79 mg/dL 74 - 99 mg/dL [facility] Interpretation and review of laboratory results Normal [facility] Glucose [Mass/Vol] 79 mg/dL Normal 74-99 [facility] Comment on above: Performed By: #### 5 2969-3 #### ALON Johnson ([id number]) [facility] ([facility]) [address] [place] [address] Basic metabolic 2000 panelon 03-09-2023 Anion gap [Moles/Vol] 10 mmol/L NINF - 19 mmol/L [facility] Calcium [Mass/Vol] 8.3 mg/dL Low 8.5 - 10.4 mg/dL [facility] Chloride [Moles/Vol] 105 mmol/L 97 - 107 mmol/L [facility] CO2 [Moles/Vol] 20 mmol/L Low 24 - 31 mmol/L [facility] Creatinine [Mass/Vol] 0.60 mg/dL 0.40 - 1.60 mg/dL [facility] eGFR - PINF [facility] Comment on above: Calculations of jessica mated GFR are performed using the 2020 CKD-EPI Study Refit equation without the race variable for the IDMS-Traceable creatinine methods. https://jasn.asnjournals.org/content/early//ASN.38347839 88 Glucose [Mass/Vol] 98 mg/dL 65 - 99 mg/dL [facility] Interpretation and review of laboratory results Abnormal [facility] Potassium [Moles/Vol] 3.7 mmol/L 3.4 - 5.1 mmol/L [facility] Sodium [Moles/Vol] 135 mmol/L 133 - 145 mmol/L [facility] Urea nitrogen [Mass/Vol] mg/dL Low 8 - 25 mg/dL [facility] Comment on above: Result rechecked [facility] Anion gap [Moles/Vol] 10 mmol/L Normal <=19 [facility] Comment on above: Performed By: #### 2 4321-2 ####MELISA Galvan ([id number])[facility] ()[address] [place] [address] Calcium [Mass/Vol] 8.3 mg/dL Low 8.5-10.4 [facility] Comment on above: Performed By: #### 2 4321-2 ####MELISA Galvan ([id number])[facility] ()[address] [place] [address] Chloride [Moles/Vol] 105 mmol/L Normal 97-107 [facility] Comment on above: Performed By: #### 2 4321-2 ####MELISA Galvan ([id number])[facility] ()[address] [place] [address] CO2 [Moles/Vol] 20 mmol/L Low 24-31 [facility] Comment on above: Performed By: #### 2 4321-2 ####MELISA Galvan ([id number])[facility] ()[address] [place] [address] Creatinine [Mass/Vol] 0.60 mg/dL Normal 0.40-1.60 [facility] Comment on above: Performed By: #### 2 4321-2 ####MELISA Galvan ([id number])[facility] ()[address] [place] [address] GFR/1.73 sq M.predicted MDRD (S/P/Bld) [Vol rate/Area] mL/min/{1.73_m2} Normal >60 [facility] Comment on above: Result Comment: Calc ulations of estimated GFR are performed using the 2020 CKD-EPI Study Refit equation without the race variable for the IDMS-Traceable creatinine methods. https://jasn.asnjournals.org/content/early/ASN.16194556 88 Performed By: #### 2 4321-2 ####MELISA Galvan ([id number])[facility] ()[address] [place] [address] Glucose [Mass/Vol] 98 mg/dL Normal 65-99 [facility] Comment on above: Performed By: #### 2 4321-2 ####MELISA Galvan ([id number])[facility] ()[address] [place] [address] Potassium [Moles/Vol] 3.7 mmol/L Normal 3.4-5.1 [facility] Comment on above: Performed By: #### 2 4321-2 ####MELISA Galvan ([id number])[facility] ()[address] [place] [address] Sodium [Moles/Vol] 135 mmol/L Normal 133-145 [facility] Comment on above: Performed By: #### 2 4321-2 ####MELISA Galvan ([id number])[facility] ()[address] [place] [address] Urea nitrogen [Mass/Vol] mg/dL Low 8-25 [facility] Comment on above: Result Comment: Resu lt rechecked Performed By: #### 2 4321-2 ####MELISA Galvan ([id number])[facility] ()[address] [place] [address] C. difficile toxin A+B tcdA+ tcdB genes HANK+probe Ql (Stl)on 03-09-2023 Interpretation and review of laboratory results Normal [facility] This test is an FDA-cleared real-time [...] performed more than once per 7 days. [facility] C. difficile, PCRon 03-09-19 24 C. difficile toxin A+B tcdA+tcdB genes HANK+probe Ql (Stl) Not detected Not Detected [facility] CBC panel Auto (Bld)on 03-09 Erythrocyte distribution width (RBC) [Ratio] 12.7 % 11.5 - 14.5 % [facility] Hematocrit (Bld) [Volume fraction] 34.6 % Low 36.0 - 46.0 % [facility] Hemoglobin (Bld) [Mass/Vol] 11.7 g/dL Low 12.0 - 16.0 g/dL [facility] Interpretation and review of laboratory results Abnormal [facility] MCH (RBC) [Entitic mass] 30.8 pg 26.0 - 34.0 pg [facility] MCHC (RBC) [Mass/Vol] 33.8 g/dL 32.0 - 36.0 g/dL [facility] MCV (RBC) [Entitic vol] 91 fL 80 - 100 fL [facility] Nucleated RBC/100 WBC (Bld) [Ratio] 0.0 % [facility] Platelets (Bld) [#/Vol] 226 10*3/uL [facility] RBC (Bld) [#/Vol] 3.80 10*6/uL [facility] WBC (Bld) [#/Vol] 6.8 10*3/uL [facility] Erythrocyte distribution width (RBC) [Ratio] 12.7 % Normal 11.5-14.5 [facility] Comment on above: Performed By: #### 5 8410-2 ####MELISA Galvan ([id number])[facility] ()[address] [place] [address] Hematocrit (Bld) [Volume fraction] 34.6 % Low 36.0-46.0 [facility] Comment on above: Performed By: #### 5 8410-2 ####MELISA Galvan ([id number])[facility] ()[address] [place] [address] Hemoglobin (Bld) [Mass/Vol] 11.7 g/dL Low 12.0-16.0 [facility] Comment on above: Performed By: #### 5 8410-2 ####MELISA Galvan ([id number])[facility] ()[address] [place] [address] MCH (RBC) [Entitic mass] 30.8 pg Normal 26.0-34.0 [facility] Comment on above: Performed By: #### 5 8410-2 ####MELISA Galvan ([id number])[facility] ()[address] [place] [address] MCHC (RBC) [Mass/Vol] 33.8 g/dL Normal 32.0-36.0 [facility] Comment on above: Performed By: #### 5 8410-2 ####MELISA Galvan ([id number])[facility] ()[address] [place] [address] MCV (RBC) [Entitic vol] 91 fL Normal 80-100 [facility] Comment on above: Performed By: #### 5 8410-2 ####MELISA Galvan ([id number])[facility] ()[address] [place] [address] Nucleated RBC/100 WBC (Bld) [Ratio] 0.0 /100 WBCs Normal 0.0-0.0 [facility] Comment on above: Performed By: #### 5 8410-2 ####MELISA Galvan ([id number])[facility] ()[address] [place] [address] Platelets (Bld) [#/Vol] 226 x10*3/uL Normal 150-450 [facility] Comment on above: Performed By: #### 5 8410-2 ####MELISA Galvan ([id number])[facility] ()[address] [place] [address] RBC (Bld) [#/Vol] 3.80 x10*6/uL Low 4.00-5.20 [facility] Comment on above: Performed By: #### 5 8410-2 ####MELISA Galvan ([id number])[facility] ()[address] [place] [address] WBC (Bld) [#/Vol] 6.8 x10*3/uL Normal 4.4-11.3 [facility] Comment on above: Performed By: #### 5 8410-2 ####MELISA Galvan ([id number])[facility] ()[address] [place] [address] Clostridioides difficile tox in A+B tcdA+tcdB geneson 03-09-2023 C. difficile toxin A+B tcdA+tcdB genes HANK+probe Ql (Stl) Clostridioides difficile toxin A+B tcdA+tcdB genes Not Detected Normal Not Detected [facility] Comment on above: Order Comment: This test [...] Performed By: #### 8 0685-1 ####MELISA Galvan ([id number])[facility] ()[address] [place] [address] Gastrointestinal pathogens i dentifiedon 03-09-2023 Gastrointestinal pathogens [...] Not Detected Normal Not Detected [facility] Comment on above: Performed By: #### 5 2969-3 #### ALON Johnson ([id number]) [facility] ([facility]) [id number] [place] [address] Glucose Test strip manual (B ld) [Mass/Vol]on 03-09-2023 Glucose [Mass/Vol] 82 mg/dL Normal 74-99 [facility] Comment on above: Performed By: #### 5 2969-3 #### ALON Johnson ([id number]) [facility] ([facility]) [address] [place] [address] Glucose [Mass/Vol] 91 mg/dL 74 - 99 mg/dL [facility] Interpretation and review of laboratory results Normal [facility] Glucose [Mass/Vol] 91 mg/dL Normal 74-99 [facility] Comment on above: Performed By: #### 5 2969-3 #### ALON Johnson ([id number]) [facility] ([facility]) [address] [place] [address] Glucose [Mass/Vol] 83 mg/dL 74 - 99 mg/dL [facility] Interpretation and review of laboratory results Normal [facility] Glucose [Mass/Vol] 83 mg/dL Normal 74-99 [facility] Comment on above: Performed By: #### 2 341-6 ####MELISA Galvan ([id number])[facility] ()[address] [place] [address] Glucose [Mass/Vol] 82 mg/dL 74 - 99 mg/dL [facility] Interpretation and review of laboratory results Normal [facility] Glucose [Mass/Vol] 82 mg/dL Normal 74-99 [facility] Comment on above: Performed By: #### 2 341-6 ####MELISA Galvan ([id number])[facility] ()[address] [place] [address] Glucose [Mass/Vol] 120 mg/dL High 74 - 99 mg/dL [facility] Interpretation and review of laboratory results Abnormal [facility] Glucose [Mass/Vol] 120 mg/dL High 74-99 [facility] Comment on above: Performed By: #### 2 341-6 ####MELISA Gavlan ([id number])[facility] ()[address] [place] [address] Glucose [Mass/Vol] 62 mg/dL Low 74 - 99 mg/dL [facility] Interpretation and review of laboratory results Abnormal [facility] Glucose [Mass/Vol] 62 mg/dL Low 74-99 [facility] Comment on above: Performed By: #### 2 341-6 ####MELISA Galvan ([id number])[facility] ()[address] [place] [address] Basic metabolic 2000 panelon 03-08-2023 Anion gap [Moles/Vol] 8 mmol/L NINF - 19 mmol/L [facility] Calcium [Mass/Vol] 8.2 mg/dL Low 8.5 - 10.4 mg/dL [facility] Chloride [Moles/Vol] 106 mmol/L 97 - 107 mmol/L [facility] CO2 [Moles/Vol] 22 mmol/L Low 24 - 31 mmol/L [facility] Creatinine [Mass/Vol] 0.70 mg/dL 0.40 - 1.60 mg/dL [facility] eGFR - PINF [facility] Comment on above: Calculations of jessica mated GFR are performed using the 2020 CKD-EPI Study Refit equation without the race variable for the IDMS-Traceable creatinine methods. https://jasn.asnjournals.org/content/early//ASN.34375121 88 Glucose [Mass/Vol] 91 mg/dL 65 - 99 mg/dL [facility] Interpretation and review of laboratory results Abnormal [facility] Potassium [Moles/Vol] 3.7 mmol/L 3.4 - 5.1 mmol/L [facility] Sodium [Moles/Vol] 136 mmol/L 133 - 145 mmol/L [facility] Urea nitrogen [Mass/Vol] 3 mg/dL Low 8 - 25 mg/dL [facility] Anion gap [Moles/Vol] 8 mmol/L Normal <=19 [facility] Comment on above: Performed By: #### 2 4323-8 #### MELISA Galvan ([id number]) [facility] () [address] [place] [address] Calcium [Mass/Vol] 8.2 mg/dL Low 8.5-10.4 [facility] Comment on above: Performed By: #### 2 432-8 #### MELISA Galvan ([id number]) [facility] () [address] [place] [address] Chloride [Moles/Vol] 106 mmol/L Normal 97-107 [facility] Comment on above: Performed By: #### 2 4323-8 #### MELISA Galvan ([id number]) [facility] () [address] [place] [address] CO2 [Moles/Vol] 22 mmol/L Low 24-31 [facility] Comment on above: Performed By: #### 2 4323-8 #### MELISA Galvan ([id number]) [facility] () [address] [place] [address] Creatinine [Mass/Vol] 0.70 mg/dL Normal 0.40-1.60 [facility] Comment on above: Performed By: #### 2 4323-8 #### MELISA Galvan ([id number]) [facility] () [address] [place] [address] GFR/1.73 sq M.predicted MDRD (S/P/Bld) [Vol rate/Area] mL/min/{1.73_m2} Normal >60 [facility] Comment on above: Result Comment: Calc ulations of estimated GFR are performed using the 2020 CKD-EPI Study Refit equation without the race variable for the IDMS-Traceable creatinine methods. https://jasn.asnjournals.org/content/early//ASN.03676123 88 Performed By: #### 2 4323-8 #### MELISA Galvan ([id number]) [facility] () [address] [place] [address] Glucose [Mass/Vol] 91 mg/dL Normal 65-99 [facility] Comment on above: Performed By: #### 2 4323-8 #### MELISA Galvan ([id number]) [facility] () [address] [place] [address] Potassium [Moles/Vol] 3.7 mmol/L Normal 3.4-5.1 [facility] Comment on above: Performed By: #### 2 4323-8 #### MELISA Galvan ([id number]) [facility] () [address] [place] [address] Sodium [Moles/Vol] 136 mmol/L Normal 133-145 [facility] Comment on above: Performed By: #### 2 4323-8 #### MELISA Galvan ([id number]) [facility] () [address] [place] [address] Urea nitrogen [Mass/Vol] 3 mg/dL Low 8-25 [facility] Comment on above: Performed By: #### 2 4323-8 #### MELISA Galvan ([id number]) [facility] () [address] [place] [address] CBC panel Auto (Bld)on 03-08 Erythrocyte distribution width (RBC) [Ratio] 12.8 % 11.5 - 14.5 % [facility] Hematocrit (Bld) [Volume fraction] 32.2 % Low 36.0 - 46.0 % [facility] Hemoglobin (Bld) [Mass/Vol] 10.9 g/dL Low 12.0 - 16.0 g/dL [facility] Interpretation and review of laboratory results Abnormal [facility] MCH (RBC) [Entitic mass] 31.3 pg 26.0 - 34.0 pg [facility] MCHC (RBC) [Mass/Vol] 33.9 g/dL 32.0 - 36.0 g/dL [facility] MCV (RBC) [Entitic vol] 93 fL 80 - 100 fL [facility] Nucleated RBC/100 WBC (Bld) [Ratio] 0.0 % [facility] Platelets (Bld) [#/Vol] 171 10*3/uL [facility] RBC (Bld) [#/Vol] 3.48 10*6/uL [facility] WBC (Bld) [#/Vol] 4.2 10*3/uL [facility] Erythrocyte distribution width (RBC) [Ratio] 12.8 % Normal 11.5-14.5 [facility] Comment on above: Performed By: #### 2 4323-8 #### MELISA Galvan ([id number]) [facility] () [address] [place] [address] Hematocrit (Bld) [Volume fraction] 32.2 % Low 36.0-46.0 [facility] Comment on above: Performed By: #### 2 4323-8 #### MELISA Galvan ([id number]) [facility] () [address] [place] [address] Hemoglobin (Bld) [Mass/Vol] 10.9 g/dL Low 12.0-16.0 [facility] Comment on above: Performed By: #### 2 4323-8 #### MELISA Galvan ([id number]) [facility] () [address] [place] [address] MCH (RBC) [Entitic mass] 31.3 pg Normal 26.0-34.0 [facility] Comment on above: Performed By: #### 2 4323-8 #### MELISA Galvan ([id number]) [facility] () [address] [place] [address] MCHC (RBC) [Mass/Vol] 33.9 g/dL Normal 32.0-36.0 [facility] Comment on above: Performed By: #### 2 4323-8 #### MELISA Galvan ([id number]) [facility] () [address] [place] [address] MCV (RBC) [Entitic vol] 93 fL Normal 80-100 [facility] Comment on above: Performed By: #### 2 4323-8 #### MELISA Galvan ([id number]) [facility] () [address] [place] [address] Nucleated RBC/100 WBC (Bld) [Ratio] 0.0 /100 WBCs Normal 0.0-0.0 [facility] Comment on above: Performed By: #### 2 4323-8 #### MELISA Galvan ([id number]) [facility] () [address] [place] [address] Platelets (Bld) [#/Vol] 171 x10*3/uL Normal 150-450 [facility] Comment on above: Performed By: #### 2 4323-8 #### MELISA Galvan ([id number]) [facility] () [address] [place] [address] RBC (Bld) [#/Vol] 3.48 x10*6/uL Low 4.00-5.20 [facility] Comment on above: Performed By: #### 2 4323-8 #### MELISA Galvan ([id number]) [facility] () [address] [place] [address] WBC (Bld) [#/Vol] 4.2 x10*3/uL Low 4.4-11.3 [facility] Comment on above: Performed By: #### 2 4323-8 #### MELISA Galvan ([id number]) [facility] () [address] [place] [address] Glucose Test strip manual (B ld) [Mass/Vol]on 03-08-2023 Glucose [Mass/Vol] 89 mg/dL 74 - 99 mg/dL [facility] Interpretation and review of laboratory results Normal [facility] Glucose [Mass/Vol] 89 mg/dL Normal 74-99 [facility] Comment on above: Performed By: #### 2 341-6 ####MELISA Galvan ([id number])[facility] ()[address] [place] [address] Glucose [Mass/Vol] 85 mg/dL 74 - 99 mg/dL [facility] Interpretation and review of laboratory results Normal [facility] Glucose [Mass/Vol] 85 mg/dL Normal 74-99 [facility] Comment on above: Performed By: #### 2 341-6 ####MELISA Galvan ([id number])[facility] ()[address] [place] [address] Glucose [Mass/Vol] 151 mg/dL High 74 - 99 mg/dL [facility] Interpretation and review of laboratory results Abnormal [facility] Glucose [Mass/Vol] 151 mg/dL High 74-99 [facility] Comment on above: Performed By: #### 2 341-6 ####MELISA Galvan ([id number])[facility] ()[address] [place] [address] Glucose [Mass/Vol] 89 mg/dL 74 - 99 mg/dL [facility] Interpretation and review of laboratory results Normal [facility] Glucose [Mass/Vol] 89 mg/dL Normal 74-99 [facility] Comment on above: Performed By: #### 2 4323-8 #### MELISA Galvan ([id number]) [facility] () [address] [place] [address] Glucose [Mass/Vol] 97 mg/dL 74 - 99 mg/dL [facility] Interpretation and review of laboratory results Normal [facility] Glucose [Mass/Vol] 97 mg/dL Normal 74-99 [facility] Comment on above: Performed By: #### 2 4323-8 #### MELISA Galvan (06508) [facility] () [address] [place] [address] Glucose [Mass/Vol] 102 mg/dL High 74 - 99 mg/dL [facility] Interpretation and review of laboratory results Abnormal [facility] Glucose [Mass/Vol] 102 mg/dL High 74-99 [facility] Comment on above: Performed By: #### 2 4323-8 #### MELISA Galvan ([id number]) [facility] () [address] [place] [address] Surgical pathology studyOrde red By: Melisa Mc on 03-08-2023 Laboratory comment John (Report) o6gefXNlJGClv0jwFJL mbGFuZzEwMzNcZnRuYm pcdWMxIHtccnRmMVxzc 6NqS5UqIyJqVCrdmgAe XGRlZmxhbmcxMDMzXGZ 0bmJqXHVjMVxkZWZmMH juYb9vsNIsrOmtSuWhF GHba8yjraZGZUshLMUG PWf7n4geBSXtAaQ3qEC cWYnnM4clswHvmREuQ9 Hjh6PiSBv4iT54ESEmq H7xzGMyNWitdvHfYcO8 MEbwXMUaCzN8IOJvyVI gKLAsS3mbPURiUZrrZW MrXDvrrPUfVYK5xHerd 1R9hIIxaBQhkZuwItBq LvMpLzBUp5BiQFm2fQi vV5XxXFOjJiB9rWPaFQ FwHNezRGDtKRNtkhP8n V34LOpucvY6lYCjh1Oi d92cp543lZ2aqHVbPZC 3MTIyNDBccGFwZXJoMT R0LIAohAOwQ6itZtOsb CWvR6MjXwOtgTJtZ8Ad UaCjyHRuZ3BqEeIapCA mHOVxkKS5GNcck620MN F7FcZlTT3cR3Pnl3A1s A3akEKhTYBleFPrJhUm NGTkks8lfQXeLHqgd2W zUQV2ogZ3tLNtdDMtKZ MzEL53Hwnhx6WbIhdvW QD5RQMmrlRqv4Pkm4kl BhRpepGyE7emD7CgUYO oZWFkXHBnYnJkcmZvb3 Gmv6QjjYBfmXo0h6qvZ ZCeJYYiiKmyw1ccGRW8 NWQmO3K2mUEgl6ptILe bXHWbqBE4mmV8ZAilRV PjzsQ0riC0WByfUIDpt DY0ogP2CSdmKPYlMyJ3 qjO5UYfbMMWoPDB1CqS kOOUsq8LysiokYeOud8 LylXMuTHosO12hx057O IIajuGiM7nleZJfijjj pSRpuiqbGJfbqcU4LET sXHBsYWluXGYxXGZzMj BcbGFuZzEwMzNcaGlja FxmMVxkYmNoXGYxXGxv S4oiJdByXtHfKDPJoFP 0pJZte6prxlG3uBXrOH 6yGWFgnHYihmIcw0E4I ZX9cLOycG4keYLtFXMw mSFepjJzag72yOIxkOJ 3MXUbLZAqtVFfqH5jMQ FkRRNFtH9swQLKuzCsm dFnEOUcxCkbck2VsXAg ns6fiDXiL2EbjWbiyGR zIHRoYXQgdGhleSBoYX HdJZHncckrb9PeTBYwm HTtT9FpYX7pUWQoqp60 [facility] Work Phone: Pathology report Cancer Narrative Surgical Pathology Case: [id number] Authorizing Provider: Sherry Magaña MD Collected: 03/05/2023 1125 Ordering Location: [facility] Received: 03/05/2023 1314 Center OR Pathologist: Melisa Mc MD Specimen: LIGAMENT, Median Arcuate Ligament [facility] Work Phone: Pathology report final diagnosis Narrative a3tquBFbZAGfiHEiDFH wNFxhbnNpXHNwbHRwZ3 GdjdrzURvtAM7eOZ1xm GxhdHRveWVuXGRlZmYw q7ugy346aHJow0xtCNF YXWewJIWBXZy5d0qwDI ISioxhmGp6bWtpO65op 3X8AafoO8tpZTUwSZxf BJVzUQxutOOsSIb8QFM hcGVydzEyMjQwXHBhcG YlmUR6BLNsPT2lqivpZ MfpWAljCSWhruX7GPIn nJKyF6TvIRPmYH2cvfz cZSE6SWmuWWHoFVC0Pv WnWMCtd3Ksnur9QoGfb Lp5j2snPAZlQNWjpZbm f1kqEHH7JPNmnNAjS2n wyA4mAYSySR5ourrrb6 ucAQemIPclQZPbbEI6i zS8SCWbeHDxP6VydL1h NDQwXHBhcmRccGxhaW5 cZjFcZnMyMlxjZjFccG LbZV9RSIpPIpFGAyCXF BDMQJeUW2DRIH7NQYQN YPRDS6cIBepunTZpWNF hYvZTlESqy7CnbSDff3 LzGR0qlUZemCCbvnTqw 02hpXmbLrMhU50klaNh m3ZfkKpegNnesMStaDy np9HwAMIrv4D8FXkiH8 xpbmljYWxseSBtZWRpY S8bFOOvwUJ7LFDrmCgw nTKqfVEmqX2ptg7kEZ4 ccGFyfQ== [facility] Work Phone: Pathology report gross observation Narrative v4haxBOfUXHwtLCHBRM 5RYCiQF0fnFmcnMe7hM hgRAEltfS1cPVdDNmop 3dcOPP8v3wmaeEXFcjw GDHoTW4dJSifVBRjIS6 nZmUwXGRlZmYxXHBhcG VydzEyMjQwXHBhcGVya TY3BDLlSR2yolrbIDib SYkiMHQbssI3UEKxkNW iZ2JqIMBpLG2qrvuySC I8OENGNlbtBs5goYKfq CANCntcZjFcZmNoYXJz UNSeDPGtkGteS6Ipu2Q ePWc3vB8Ns6zsMdveW4 navwLpsWMcSt9utUYEm losnGl3xZ0NEXOxE0Aw CC4Cm3obAYGkcOGgZEE 2ZNxtd6sdJBsvPAP4JF BzSDQxCSOgUF1RSwKmT OexQUYjWBNpOQr7NWg9 LRXWIAXmHfA6BIQ1TKm 7HKa6KPvertzxMZt6TT KcZNvlhCJoCB6mtMseS djvgYyti0AaaDPnRSXt IFxcaWQgNTEwMDIgXFx zRhQJAbNcAhI3YqVjZD IgWoE8ZSi7RTINNqPpP sZzXMYfCrg1BQXhAIm0 NFg2SMdBHwM9WoL2LZy 6HeajRXU4EwBgLQmwoL BcXHQgMiBcXHNzIDMgX KlhsXFfAB5qnVzvWAJe AB1YBHMuSVhlICIuxFU WGOX3FZ7tFSREFjvcvO LhKTFnPXzvxBHoE3jvF jJcZnMyMCBBOiBSZWNl aXZlZCBmcmVzaCBsYWJ lbGVkIHdpdGggdGhlIH LpfDfubzTdnzHiXL4dN TAoWJWdc4ZkvDCiaKJs mZ8mRPAdSF6fLNKcZYN vYB4kBIHazAC6VOZkwB dhbWVudCIsIGFyZSAyI GlycmVndWxhciBhbmQg kMRbESUfIETgl9K8RHM wn9M0MRDkwpXvfMDrqD KgxOPsy4QfkS2dBSSoE EHyzRY3NOZtHdV9OPSc QmRcmRVnwvIjL2xlKEz xzDGlMCOVkHRgu0NrZ4 aoYF0acBXqy7NtlAiga mVkIGFuZCBlbnRpcmVs dBZizIDuyGE5JRVhjX5 xKLFyCAEhTEJ0YB4ebU DcGZ3XLFLASCEvrfCMI eieQYMxWLfZea6pgdEv kZOqTPB1vV7rMEMoayH zhp1zXJUfvWxtvBHyBH 6NPZ6aqbGeu9k5kCSZu 3NwaXRhbHMgTGFrZSBX IUU8HH4nQNysVHypX7U aiJMmAAVhpdKDGkI0UO QzWRD7K8pxFVUCqrDmv YCpyVObLG7OF4nxvW90 W5byxEqvE2fvdkJ6JGL 4NFmcBVXcTVjmp0YrBY xlcGljWHNhMzAgDQpQa I8wRSbtYBA1FEbgCXVy LTYwMjUgIEZheDogKDQ 8FAkiNlHvIWG7CZIFFe zqwNcbUgHqpLAhXoM8P LYvmPWzRWJ7WV2gyMal ALCwW2SrV5WuvyZ0BDG ijfSUJrmrVQEmTR3VMI GsYHbxBO8QeQ== [facility] Work Phone: Pathology report relevant history Narrative c8kpfAUdRCCxp1lhIMR mbGFuZzEwMzNcZnRuYm y8ZPSzhaB7Hhl9WVGwD LlylB4tHHQzNWcxE3sz ncQjsYEpM4Lsv6EfPEc 3uP0bgMuelR9oQhJrMh ZxNNTIayFkr0HiMGihT 46mu8keAmzbPXPxHZPo yIBfGIKqM9EuoFKwzVd kAQ8bgbRex7xxOLFnyE LwGJUSKb8NW9ImAUvBM sghWJ3ruNXqBK1= [facility] Work Phone: [facility] Work Phone: Basic metabolic 2000 panelon 03-07-2023 Anion gap [Moles/Vol] 7 mmol/L NINF - 19 mmol/L [facility] Calcium [Mass/Vol] 8.0 mg/dL Low 8.5 - 10.4 mg/dL [facility] Chloride [Moles/Vol] 111 mmol/L High 97 - 107 mmol/L [facility] CO2 [Moles/Vol] 21 mmol/L Low 24 - 31 mmol/L [facility] Creatinine [Mass/Vol] 0.70 mg/dL 0.40 - 1.60 mg/dL [facility] eGFR - PINF [facility] Comment on above: Calculations of jessica mated GFR are performed using the 2020 CKD-EPI Study Refit equation without the race variable for the IDMS-Traceable creatinine methods. https://jasn.asnjournals.org/content///ASN.12794361 88 Glucose [Mass/Vol] 100 mg/dL High 65 - 99 mg/dL [facility] Interpretation and review of laboratory results Abnormal [facility] Potassium [Moles/Vol] 3.9 mmol/L 3.4 - 5.1 mmol/L [facility] Sodium [Moles/Vol] 139 mmol/L 133 - 145 mmol/L [facility] Urea nitrogen [Mass/Vol] 4 mg/dL Low 8 - 25 mg/dL [facility] Anion gap [Moles/Vol] 7 mmol/L Normal <=19 [facility] Comment on above: Performed By: #### 5 7021-8 #### MELISA Galvan ([id number]) [facility] () [address] [place] [address] Calcium [Mass/Vol] 8.0 mg/dL Low 8.5-10.4 [facility] Comment on above: Performed By: #### 5 7021-8 #### MELISA Galvan ([id number]) [facility] () [address] [place] [address] Chloride [Moles/Vol] 111 mmol/L High 97-107 [facility] Comment on above: Performed By: #### 5 7021-8 #### MELISA Galvan ([id number]) [facility] () [address] [place] [address] CO2 [Moles/Vol] 21 mmol/L Low 24-31 [facility] Comment on above: Performed By: #### 5 7021-8 #### MELISA Galvan ([id number]) [facility] () [address] [place] [address] Creatinine [Mass/Vol] 0.70 mg/dL Normal 0.40-1.60 [facility] Comment on above: Performed By: #### 5 7021-8 #### MELISA Galvan ([id number]) [facility] () [address] [place] [address] GFR/1.73 sq M.predicted MDRD (S/P/Bld) [Vol rate/Area] mL/min/{1.73_m2} Normal >60 [facility] Comment on above: Result Comment: Calc ulations of estimated GFR are performed using the 2020 CKD-EPI Study Refit equation without the race variable for the IDMS-Traceable creatinine methods. https://jasn.asnjournals.org/content/early//ASN.85105223 88 Performed By: #### 5 7021-8 #### MELISA Galvan ([id number]) [facility] () [address] [place] [address] Glucose [Mass/Vol] 100 mg/dL High 65-99 [facility] Comment on above: Performed By: #### 5 7021-8 #### MELISA Galvan ([id number]) [facility] () [address] [place] [address] Potassium [Moles/Vol] 3.9 mmol/L Normal 3.4-5.1 [facility] Comment on above: Performed By: #### 5 7021-8 #### MELSIA Galvan ([id number]) [facility] () [address] [place] [address] Sodium [Moles/Vol] 139 mmol/L Normal 133-145 [facility] Comment on above: Performed By: #### 5 7021-8 #### MELISA Galvan ([id number]) [facility] () [address] [place] [address] Urea nitrogen [Mass/Vol] 4 mg/dL Low 8-25 [facility] Comment on above: Performed By: #### 5 7021-8 #### MELISA Galvan ([id number]) [facility] () [address] [place] [address] CBC panel Auto (Bld)on 03-07 Erythrocyte distribution width (RBC) [Ratio] 13.2 % 11.5 - 14.5 % [facility] Hematocrit (Bld) [Volume fraction] 33.3 % Low 36.0 - 46.0 % [facility] Hemoglobin (Bld) [Mass/Vol] 11.0 g/dL Low 12.0 - 16.0 g/dL [facility] Interpretation and review of laboratory results Abnormal [facility] MCH (RBC) [Entitic mass] 31.3 pg 26.0 - 34.0 pg [facility] MCHC (RBC) [Mass/Vol] 33.0 g/dL 32.0 - 36.0 g/dL [facility] MCV (RBC) [Entitic vol] 95 fL 80 - 100 fL [facility] Nucleated RBC/100 WBC (Bld) [Ratio] 0.0 % [facility] Platelets (Bld) [#/Vol] 155 10*3/uL [facility] RBC (Bld) [#/Vol] 3.51 10*6/uL Low [facility] WBC (Bld) [#/Vol] 5.1 10*3/uL [facility] Erythrocyte distribution width (RBC) [Ratio] 13.2 % Normal 11.5-14.5 [facility] [place] Comment on above: Performed By: #### 5 7021-8 #### MELISA Galvan ([id number]) [facility] () [address] [place] [address] Hematocrit (Bld) [Volume fraction] 33.3 % Low 36.0-46.0 [facility] [place] Comment on above: Performed By: #### 5 7021-8 #### MELISA Galvan ([id number]) [facility] () [address] [place] [address] Hemoglobin (Bld) [Mass/Vol] 11.0 g/dL Low 12.0-16.0 [facility] [place] Comment on above: Performed By: #### 5 7021-8 #### MELISA Galvan ([id number]) [facility] () [address] [place] [address] MCH (RBC) [Entitic mass] 31.3 pg Normal 26.0-34.0 [facility] [place] Comment on above: Performed By: #### 5 7021-8 #### MELISA Galvan ([id number]) [facility] () [address] [place] [address] MCHC (RBC) [Mass/Vol] 33.0 g/dL Normal 32.0-36.0 [facility] [place] Comment on above: Performed By: #### 5 7021-8 #### MELISA Galvan ([id number]) [facility] () [address] [place] [address] MCV (RBC) [Entitic vol] 95 fL Normal 80-100 [facility] [place] Comment on above: Performed By: #### 5 7021-8 #### MELISA Galvan ([id number]) [facility] () [address] [place] [address] Nucleated RBC/100 WBC (Bld) [Ratio] 0.0 /100 WBCs Normal 0.0-0.0 [facility] [place] Comment on above: Performed By: #### 5 7021-8 #### MELISA Galvan ([id number]) [facility] () [address] [place] [address] Platelets (Bld) [#/Vol] 155 x10*3/uL Normal 150-450 [facility] [place] Comment on above: Performed By: #### 5 7021-8 #### MELISA Galvan ([id number]) [facility] () [address] [place] [address] RBC (Bld) [#/Vol] 3.51 x10*6/uL Low 4.00-5.20 [facility] Comment on above: Performed By: #### 5 7021-8 #### MELISA Galvan ([id number]) [facility] () [address] [place] [address] WBC (Bld) [#/Vol] 5.1 x10*3/uL Normal 4.4-11.3 [facility] Comment on above: Performed By: #### 5 7021-8 #### MELISA Galvan ([id number]) [facility] () [address] [place] [address] Glucose Test strip manual (B ld) [Mass/Vol]on 03-07-2023 Glucose [Mass/Vol] 125 mg/dL High 74 - 99 mg/dL [facility] Interpretation and review of laboratory results Abnormal [facility] Glucose [Mass/Vol] 125 mg/dL High 74-99 [facility] Comment on above: Performed By: #### 2 4323-8 #### MELISA Galvan ([id number]) [facility] () [address] [place] [address] Glucose [Mass/Vol] 117 mg/dL High 74 - 99 mg/dL [facility] Interpretation and review of laboratory results Abnormal [facility] Glucose [Mass/Vol] 117 mg/dL High 74-99 [facility] Comment on above: Performed By: #### 2 4323-8 #### MELISA Galvan ([id number]) [facility] () [address] [place] [address] Glucose [Mass/Vol] 98 mg/dL 74 - 99 mg/dL [facility] Interpretation and review of laboratory results Normal [facility] Glucose [Mass/Vol] 98 mg/dL Normal 74-99 [facility] Comment on above: Performed By: #### 2 4323-8 #### MELISA Galvan ([id number]) [facility] () [address] [place] [address] Glucose [Mass/Vol] 98 mg/dL 74 - 99 mg/dL [facility] Interpretation and review of laboratory results Normal [facility] Glucose [Mass/Vol] 98 mg/dL Normal 74-99 [facility] Comment on above: Performed By: #### 2 4323-8 #### MELISA Galvan ([id number]) [facility] () [address] [place] [address] Glucose [Mass/Vol] 108 mg/dL High 74 - 99 mg/dL [facility] Interpretation and review of laboratory results Abnormal [facility] Glucose [Mass/Vol] 108 mg/dL High 74-99 [facility] Comment on above: Performed By: #### 5 7021-8 #### MELISA Galvan ([id number]) [facility] () [address] [place] [address] Glucose [Mass/Vol] 119 mg/dL High 74 - 99 mg/dL [facility] Interpretation and review of laboratory results Abnormal [facility] Basic metabolic 2000 panelon 03-06-2023 Anion gap [Moles/Vol] 7 mmol/L NINF - 19 mmol/L [facility] Calcium [Mass/Vol] 8.1 mg/dL Low 8.5 - 10.4 mg/dL [facility] Chloride [Moles/Vol] 109 mmol/L High 97 - 107 mmol/L [facility] CO2 [Moles/Vol] 21 mmol/L Low 24 - 31 mmol/L [facility] Creatinine [Mass/Vol] 0.70 mg/dL 0.40 - 1.60 mg/dL [facility] eGFR - PINF [facility] Comment on above: Calculations of jessica mated GFR are performed using the 2020 CKD-EPI Study Refit equation without the race variable for the IDMS-Traceable creatinine methods. https://jasn.asnjournals.org/content//ASN.54734983 88 Glucose [Mass/Vol] 149 mg/dL High 65 - 99 mg/dL [facility] Interpretation and review of laboratory results Abnormal [facility] Potassium [Moles/Vol] 3.7 mmol/L 3.4 - 5.1 mmol/L [facility] Sodium [Moles/Vol] 137 mmol/L 133 - 145 mmol/L [facility] Urea nitrogen [Mass/Vol] 5 mg/dL Low 8 - 25 mg/dL [facility] Anion gap [Moles/Vol] 7 mmol/L Normal <=19 [facility] Comment on above: Performed By: #### 5 7021-8 #### MELISA Galvan ([id number]) [facility] () [address] [place] [address] Calcium [Mass/Vol] 8.1 mg/dL Low 8.5-10.4 [facility] Comment on above: Performed By: #### 5 7021-8 #### MELISA Galvan ([id number]) [facility] () [address] [place] [address] Chloride [Moles/Vol] 109 mmol/L High 97-107 [facility] Comment on above: Performed By: #### 5 7021-8 #### MELISA Galvan ([id number]) [facility] () [address] [place] [address] CO2 [Moles/Vol] 21 mmol/L Low 24-31 [facility] Comment on above: Performed By: #### 5 7021-8 #### MELISA Galvan ([id number]) [facility] () [address] [place] [address] Creatinine [Mass/Vol] 0.70 mg/dL Normal 0.40-1.60 [facility] Comment on above: Performed By: #### 5 7021-8 #### MELISA Galvan ([id number]) [facility] () [address] [place] [address] GFR/1.73 sq M.predicted MDRD (S/P/Bld) [Vol rate/Area] mL/min/{1.73_m2} Normal >60 [facility] Comment on above: Result Comment: Calc ulations of estimated GFR are performed using the 2020 CKD-EPI Study Refit equation without the race variable for the IDMS-Traceable creatinine methods. https://jasn.asnjournals.org/content/early//ASN.08594858 88 Performed By: #### 5 7021-8 #### MELISA Galvan ([id number]) [facility] () [address] [place] [address] Glucose [Mass/Vol] 149 mg/dL High 65-99 [facility] Comment on above: Performed By: #### 5 7021-8 #### MELISA Galvan ([id number]) [facility] () [address] [place] [address] Potassium [Moles/Vol] 3.7 mmol/L Normal 3.4-5.1 [facility] Comment on above: Performed By: #### 5 7021-8 #### MELISA Galvan ([id number]) [facility] () [address] [place] [address] Sodium [Moles/Vol] 137 mmol/L Normal 133-145 [facility] Comment on above: Performed By: #### 5 7021-8 #### MELISA Galvan ([id number]) [facility] () [address] [place] [address] Urea nitrogen [Mass/Vol] 5 mg/dL Low 8-25 [facility] Comment on above: Performed By: #### 5 7021-8 #### MELISA Galvan ([id number]) [facility] () [address] [place] [address] CBC panel Auto (Bld)on 03-06 Erythrocyte distribution width (RBC) [Ratio] 12.9 % 11.5 - 14.5 % [facility] Hematocrit (Bld) [Volume fraction] 35.1 % Low 36.0 - 46.0 % [facility] Hemoglobin (Bld) [Mass/Vol] 11.8 g/dL Low 12.0 - 16.0 g/dL [facility] Interpretation and review of laboratory results Abnormal [facility] MCH (RBC) [Entitic mass] 30.8 pg 26.0 - 34.0 pg [facility] MCHC (RBC) [Mass/Vol] 33.6 g/dL 32.0 - 36.0 g/dL [facility] MCV (RBC) [Entitic vol] 92 fL 80 - 100 fL [facility] Nucleated RBC/100 WBC (Bld) [Ratio] 0.0 % [facility] Platelets (Bld) [#/Vol] 179 10*3/uL [facility] RBC (Bld) [#/Vol] 3.83 10*6/uL Low [facility] WBC (Bld) [#/Vol] 5.5 10*3/uL [facility] Erythrocyte distribution width (RBC) [Ratio] 12.9 % Normal 11.5-14.5 [facility] Comment on above: Performed By: #### 2 4356-8 #### MELISA Galvan ([id number]) [facility] () [address] [place] [address] Hematocrit (Bld) [Volume fraction] 35.1 % Low 36.0-46.0 [facility] Comment on above: Performed By: #### 2 4356-8 #### MELISA Galvan ([id number]) [facility] () [address] [place] [address] Hemoglobin (Bld) [Mass/Vol] 11.8 g/dL Low 12.0-16.0 [facility] Comment on above: Performed By: #### 2 4356-8 #### MELISA Galvan ([id number]) [facility] () [address] [place] [address] MCH (RBC) [Entitic mass] 30.8 pg Normal 26.0-34.0 [facility] Comment on above: Performed By: #### 2 4356-8 #### MELISA Galvan (63313) [facility] () [address] [place] [address] MCHC (RBC) [Mass/Vol] 33.6 g/dL Normal 32.0-36.0 [facility] Comment on above: Performed By: #### 2 4356-8 #### MELISA Galvan ([id number]) [facility] () [address] [place] [address] MCV (RBC) [Entitic vol] 92 fL Normal 80-100 [facility] Comment on above: Performed By: #### 2 4356-8 #### MELISA Galvan ([id number]) [facility] () [address] [place] [address] Nucleated RBC/100 WBC (Bld) [Ratio] 0.0 /100 WBCs Normal 0.0-0.0 [facility] Comment on above: Performed By: #### 2 4356-8 #### MELISA Galvan (54563) [facility] () [address] [place] [address] Platelets (Bld) [#/Vol] 179 x10*3/uL Normal 150-450 [facility] Comment on above: Performed By: #### 2 4356-8 #### MELISA Galvan ([id number]) [facility] () [address] [place] [address] RBC (Bld) [#/Vol] 3.83 x10*6/uL Low 4.00-5.20 [facility] Comment on above: Performed By: #### 2 4356-8 #### MELISA Galvan (82574) [facility] () [address] [place] [address] WBC (Bld) [#/Vol] 5.5 x10*3/uL Normal 4.4-11.3 [facility] Comment on above: Performed By: #### 2 4356-8 #### MELISA Galvan (74890) [facility] () [address] [place] [address] Glucose Test strip manual (B ld) [Mass/Vol]on 03-06-2023 Glucose [Mass/Vol] 119 mg/dL High 74-99 [facility] Comment on above: Performed By: #### 5 7021-8 #### MELISA Galvan ([id number]) [facility] () [address] [place] [address] Glucose [Mass/Vol] 103 mg/dL High 74 - 99 mg/dL [facility] Interpretation and review of laboratory results Abnormal [facility] Glucose [Mass/Vol] 103 mg/dL High 74-99 [facility] Comment on above: Performed By: #### 5 7021-8 #### MELISA Galvan ([id number]) [facility] () [address] [place] [address] Glucose [Mass/Vol] 119 mg/dL High 74 - 99 mg/dL [facility] Interpretation and review of laboratory results Abnormal [facility] Glucose [Mass/Vol] 119 mg/dL High 74-99 [facility] Comment on above: Performed By: #### 5 7021-8 #### MELISA Galvan (27297) [facility] () [address] [place] [address] Glucose [Mass/Vol] 108 mg/dL High 74 - 99 mg/dL [facility] Interpretation and review of laboratory results Abnormal [facility] Glucose [Mass/Vol] 108 mg/dL High 74-99 [facility] Comment on above: Performed By: #### 5 7021-8 #### MELISA Galvan ([id number]) [facility] () [address] [place] [address] Glucose [Mass/Vol] 113 mg/dL High 74 - 99 mg/dL [facility] Interpretation and review of laboratory results Abnormal [facility] Glucose [Mass/Vol] 113 mg/dL High 74-99 [facility] Comment on above: Performed By: #### 5 7021-8 #### MELISA Galvan (07905) [facility] () [address] [place] [address] Glucose [Mass/Vol] 152 mg/dL High 74 - 99 mg/dL [facility] Interpretation and review of laboratory results Abnormal [facility] Glucose [Mass/Vol] 152 mg/dL High 74-99 [facility] Comment on above: Performed By: #### 2 4356-8 #### MELISA Galvan ([id number]) [facility] () [address] [place] [address] Magnesiumon 03-06-2023 Magnesium [Mass/Vol] 1.70 mg/dL 1.60 - 3.10 mg/dL [facility] Magnesium [Mass/Vol] 1.70 mg/dL Normal 1.60-3.10 [facility] Comment on above: Performed By: #### 2 4356-8 #### MELISA Galvan ([id number]) [facility] () [address] [place] [address] No Panel Informationon 03-06 Interpretation and review of laboratory results Normal [facility] Phosphateon 03-06-2023 Phosphate [Mass/Vol] 3.0 mg/dL Normal 2.5-4.5 [facility] Comment on above: Performed By: #### 2 4356-8 #### MELISA Galvan (77589) [facility] () [address] [place] [address] Phosphoruson 03-06-2023 Phosphate [Mass/Vol] 3.0 mg/dL 2.5 - 4.5 mg/dL [facility] XR CHEST 1 VIEWon 03-06-2023 XR CHEST 1 VIEW Interpreted By: Sara Zarate, STUDY: XR CHEST 1 VIEW; 03/06/2023 7:32 am INDICATION: Signs/Symptoms:post op COMPARISON: None ACCESSION NUMBER(S): [id number] ORDERING CLINICIAN: JASON FOSTER TECHNIQUE: Frontal and [...] Sara Zarate 03/06/2023 1:48 PM Dictation workstation: [id number] Normal [facility] XR Chest Single viewon 03-06 Appliance positioning as noted above. No consolidation. Signed by: Sara Zarate 03/06/2023 1:48 PM Dictation workstation: [id number] Interpreted By: Sara Zarate, STUDY: XR CHEST 1 VIEW; 03/06/2023 7:32 am INDICATION: Signs/Symptoms:post op COMPARISON: None ACCESSION NUMBER(S): [id number] ORDERING CLINICIAN: JASON FOSTER TECHNIQUE: Frontal and [...] INDICATION: Signs/Symptoms:post op COMPARISON: None ACCESSION NUMBER(S): [id number] ORDERING CLINICIAN: JASON FOSTER TECHNIQUE: Frontal and [...] Sara Zarate 03/06/2023 1:48 PM Dictation workstation: [id number] [facility] Work Phone: Radiology Study observation (narrative) [facility] Work Phone: XR Chest Single viewOrdered By: Sara Zarate on 03-06-2023 [facility] Work Phone: Basic metabolic 2000 panelon 03-05-2023 Anion gap [Moles/Vol] 13 mmol/L NINF - 19 mmol/L [facility] Calcium [Mass/Vol] 8.0 mg/dL Low 8.5 - 10.4 mg/dL [facility] Chloride [Moles/Vol] 107 mmol/L 97 - 107 mmol/L [facility] CO2 [Moles/Vol] 18 mmol/L Low 24 - 31 mmol/L [facility] Creatinine [Mass/Vol] 0.70 mg/dL 0.40 - 1.60 mg/dL [facility] eGFR - PINF [facility] Comment on above: Calculations of jessica mated GFR are performed using the 2020 CKD-EPI Study Refit equation without the race variable for the IDMS-Traceable creatinine methods. https://jasn.asnjournals.org/content//ASN.98270963 88 Glucose [Mass/Vol] 107 mg/dL High 65 - 99 mg/dL [facility] Interpretation and review of laboratory results Abnormal [facility] Potassium [Moles/Vol] 3.6 mmol/L 3.4 - 5.1 mmol/L [facility] Sodium [Moles/Vol] 138 mmol/L 133 - 145 mmol/L [facility] Urea nitrogen [Mass/Vol] 10 mg/dL 8 - 25 mg/dL [facility] Anion gap [Moles/Vol] 13 mmol/L Normal <=19 [facility] Comment on above: Performed By: #### 2 4356-8 #### MELISA Galvan ([id number]) [facility] () [address] [place] [address] Calcium [Mass/Vol] 8.0 mg/dL Low 8.5-10.4 [facility] Comment on above: Performed By: #### 2 4356-8 #### MELISA Galvan ([id number]) [facility] () [address] [place] [address] Chloride [Moles/Vol] 107 mmol/L Normal 97-107 [facility] Comment on above: Performed By: #### 2 4356-8 #### MELISA Galvan (91938) [facility] () [address] [place] [address] CO2 [Moles/Vol] 18 mmol/L Low 24-31 [facility] Comment on above: Performed By: #### 2 4356-8 #### MELISA Galvan (36568) [facility] () [address] [place] [address] Creatinine [Mass/Vol] 0.70 mg/dL Normal 0.40-1.60 [facility] Comment on above: Performed By: #### 2 4356-8 #### MELISA Galvan (23601) [facility] () [address] [place] [address] GFR/1.73 sq M.predicted MDRD (S/P/Bld) [Vol rate/Area] mL/min/{1.73_m2} Normal >60 [facility] Comment on above: Result Comment: Calc ulations of estimated GFR are performed using the 2020 CKD-EPI Study Refit equation without the race variable for the IDMS-Traceable creatinine methods. https://jasn.asnjournals.org/content//ASN.78206775 88 Performed By: #### 2 4356-8 #### MELISA Galvan (00184) [facility] () [address] [place] [address] Glucose [Mass/Vol] 107 mg/dL High 65-99 [facility] Comment on above: Performed By: #### 2 4356-8 #### MELISA Galvan (60390) [facility] () [address] [place] [address] Potassium [Moles/Vol] 3.6 mmol/L Normal 3.4-5.1 [facility] Comment on above: Performed By: #### 2 4356-8 #### MELISA Galvan (86248) [facility] () [address] [place] [address] Sodium [Moles/Vol] 138 mmol/L Normal 133-145 [facility] Comment on above: Performed By: #### 2 4356-8 #### MELISA Galvan (51374) [facility] () [address] [place] [address] Urea nitrogen [Mass/Vol] 10 mg/dL Normal 8-25 [facility] Comment on above: Performed By: #### 2 4356-8 #### MELISA Galvan (66483) [facility] () [address] [place] [address] CBC panel Auto (Bld)on 03-05 Erythrocyte distribution width (RBC) [Ratio] 12.6 % 11.5 - 14.5 % [facility] Hematocrit (Bld) [Volume fraction] 34.8 % Low 36.0 - 46.0 % [facility] Hemoglobin (Bld) [Mass/Vol] 11.9 g/dL Low 12.0 - 16.0 g/dL [facility] Interpretation and review of laboratory results Abnormal [facility] MCH (RBC) [Entitic mass] 31.2 pg 26.0 - 34.0 pg [facility] MCHC (RBC) [Mass/Vol] 34.2 g/dL 32.0 - 36.0 g/dL [facility] MCV (RBC) [Entitic vol] 91 fL 80 - 100 fL [facility] Nucleated RBC/100 WBC (Bld) [Ratio] 0.0 % [facility] Platelets (Bld) [#/Vol] 182 10*3/uL [facility] RBC (Bld) [#/Vol] 3.82 10*6/uL Low [facility] WBC (Bld) [#/Vol] 8.4 10*3/uL [facility] Erythrocyte distribution width (RBC) [Ratio] 12.6 % Normal 11.5-14.5 [facility] Comment on above: Performed By: #### 5 8410-2 #### MELISA Galvan (75824) [facility] () [address] [place] [address] Hematocrit (Bld) [Volume fraction] 34.8 % Low 36.0-46.0 [facility] Comment on above: Performed By: #### 5 8410-2 #### MELISA Galvan (48469) [facility] () [address] [place] [address] Hemoglobin (Bld) [Mass/Vol] 11.9 g/dL Low 12.0-16.0 [facility] Comment on above: Performed By: #### 5 8410-2 #### MELISA Galvan ([id number]) [facility] () [address] [place] [address] MCH (RBC) [Entitic mass] 31.2 pg Normal 26.0-34.0 [facility] Comment on above: Performed By: #### 5 8410-2 #### MELISA Galvan ([id number]) [facility] () [address] [place] [address] MCHC (RBC) [Mass/Vol] 34.2 g/dL Normal 32.0-36.0 [facility] Comment on above: Performed By: #### 5 8410-2 #### MELISA Galvan ([id number]) [facility] () [address] [place] [address] MCV (RBC) [Entitic vol] 91 fL Normal 80-100 [facility] Comment on above: Performed By: #### 5 8410-2 #### MELISA Galvan (35671) [facility] () [address] [place] [address] Nucleated RBC/100 WBC (Bld) [Ratio] 0.0 /100 WBCs Normal 0.0-0.0 [facility] Comment on above: Performed By: #### 5 8410-2 #### MELISA Galvan (12715) [facility] () [address] [place] [address] Platelets (Bld) [#/Vol] 182 x10*3/uL Normal 150-450 [facility] Comment on above: Performed By: #### 5 8410-2 #### MELISA Galvan (37863) [facility] () [address] [place] [address] RBC (Bld) [#/Vol] 3.82 x10*6/uL Low 4.00-5.20 [facility] Comment on above: Performed By: #### 5 8410-2 #### MELISA Galvan (76792) [facility] () [address] [place] [address] WBC (Bld) [#/Vol] 8.4 x10*3/uL Normal 4.4-11.3 [facility] Comment on above: Performed By: #### 5 8410-2 #### MELISA Galvan (02527) [facility] () [address] [place] [address] Glucose Test strip manual (B ld) [Mass/Vol]on 03-05-2023 Glucose [Mass/Vol] 176 mg/dL High 74 - 99 mg/dL [facility] Interpretation and review of laboratory results Abnormal [facility] Glucose [Mass/Vol] 176 mg/dL High 74-99 [facility] Comment on above: Performed By: #### 2 4356-8 #### MELISA Galvan (98204) [facility] () [address] [place] [address] Glucose [Mass/Vol] 177 mg/dL High 74 - 99 mg/dL [facility] Interpretation and review of laboratory results Abnormal [facility] Glucose [Mass/Vol] 177 mg/dL High 74-99 [facility] Comment on above: Performed By: #### 2 4356-8 #### MELISA Galvan (42783) [facility] () [address] [place] [address] Glucose [Mass/Vol] 111 mg/dL High 74 - 99 mg/dL [facility] Interpretation and review of laboratory results Abnormal [facility] Glucose [Mass/Vol] 111 mg/dL High 74-99 [facility] Comment on above: Performed By: #### 2 4356-8 #### MELISA Galvan (73656) [facility] () [address] [place] [address] Magnesiumon 03-05-2023 Magnesium [Mass/Vol] 1.70 mg/dL 1.60 - 3.10 mg/dL [facility] Magnesium [Mass/Vol] 1.70 mg/dL Normal 1.60-3.10 [facility] Comment on above: Performed By: #### 2 4356-8 #### MELISA Galvan ([id number]) [facility] () [address] [place] [address] No Panel Informationon 03-05 Interpretation and review of laboratory results Normal [facility] Phosphateon 03-05-2023 Phosphate [Mass/Vol] 4.3 mg/dL Normal 2.5-4.5 [facility] Comment on above: Performed By: #### 2 4356-8 #### MELISA Galvan (72089) [facility] () [address] [place] [address] Phosphoruson 03-05-2023 Phosphate [Mass/Vol] 4.3 mg/dL 2.5 - 4.5 mg/dL [facility] Surgical pathology studyon 0 03-05-2023 Surgical pathology study Pathology report.total SEE COMMENT Surgical Pathology Case: [id number] Authorizing Provider: Sherry Magaña MD Collected: 03/05/2023 1125 Ordering Location: [facility] Received: 03/05/2023 1314 Center OR [...] sectioned and entirely submitted in 1 cassette. 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 Comment on above: Performed By: #### V ERAB #### MELISA Galvan ([id number]) [facility] ([facility]) [id number] [place] [address] XR CHEST 1 VIEWon 03-05-2023 XR CHEST 1 VIEW Interpreted By: Baldomero Hendrickson, STUDY: XR CHEST 1 VIEW; 03/05/2023 3:11 pm INDICATION: CLINICAL INFORMATION: Signs/Symptoms:NG tube placement confirmation. COMPARISON: 03/05/2019 at 745 hours ACCESSION NUMBER(S): [id number] ORDERING CLINICIAN: DESMOND TIRADO TECHNIQUE: Portable chest [...] Baldomero Hendrickson 03/05/2023 3:31 PM Dictation workstation: [id number] [facility] XR CHEST 1 VIEW Interpreted By: Nya Ahmadi, STUDY: XR CHEST 1 VIEW 03/05/2023 7:51 am INDICATION: Signs/Symptoms:conf irm line placement COMPARISON: None available. ACCESSION NUMBER(S): [id number] ORDERING CLINICIAN: SERENA GEORGE TECHNIQUE: AP erect view of the chest FINDINGS: Right arm PICC line terminates in the SVC. There is no pneumothorax. The heart, mediastinum, and lungs are normally visualized. IMPRESSION: Right arm PICC line terminating in SVC without pneumothorax. No acute cardiopulmonary disease. Signed by: Nya Ahmadi 03/05/2023 7:54 AM Dictation workstation: [id number] [facility] XR Chest Single viewon 03-05 1. Status post NG tube insertion with the tube extending into the left upper quadrant. 2. Stable appearance of the PICC line. 3. No infiltrates are identified. MACRO: none Signed by: Baldomero Hendrickson 03/05/2023 3:31 PM Dictation workstation: [id number] [facility] Interpreted By: Baldomero Hendrickson, STUDY: XR CHEST 1 VIEW; 03/05/2023 3:11 pm INDICATION: CLINICAL INFORMATION: Signs/Symptoms:NG tube placement confirmation. COMPARISON: 03/05/2019 at 745 hours ACCESSION NUMBER(S): [id number] ORDERING CLINICIAN: DESMOND TIRADO TECHNIQUE: Portable chest [...] COMPARISON: 03/05/2019 at 745 hours ACCESSION NUMBER(S): [id number] ORDERING CLINICIAN: DESMOND TIRADO TECHNIQUE: Portable chest [...] Baldomero Hendrickson 03/05/2023 3:31 PM Dictation workstation: [id number] [facility] Work Phone: Radiology Study observation (narrative) [facility] Work Phone: Right arm PICC line terminating in SVC without pneumothorax. No acute cardiopulmonary disease. Signed by: Nya Ahmadi 03/05/2023 7:54 AM Dictation workstation: [id number] [facility] Interpreted By: Nya Ahmadi, STUDY: XR CHEST 1 VIEW 03/05/2023 7:51 am INDICATION: Signs/Symptoms:conf irm line placement COMPARISON: None available. ACCESSION NUMBER(S): [id number] ORDERING CLINICIAN: SERENA GEORGE TECHNIQUE: AP erect view of the chest FINDINGS: Right arm PICC line terminates in the SVC. There is no pneumothorax. The heart, mediastinum, and lungs are normally visualized. [facility] Nya Ahmadi MD - 03/05/2023 Interpreted By: Nya Ahmadi, STUDY: XR CHEST 1 VIEW 03/05/2023 7:51 am INDICATION: Signs/Symptoms:conf irm line placement COMPARISON: None available. ACCESSION NUMBER(S): [id number] ORDERING CLINICIAN: SERENA GEORGE TECHNIQUE: AP erect view of the chest FINDINGS: Right arm PICC line terminates in the SVC. There is no pneumothorax. The heart, mediastinum, and lungs are normally visualized. IMPRESSION: Right arm PICC line terminating in SVC without pneumothorax. No acute cardiopulmonary disease. Signed by: Nya Ahmadi 03/05/2023 7:54 AM Dictation workstation: [id number] [facility] Work Phone: Radiology Study observation (narrative) [facility] Work Phone: XR Chest Single viewOrdered By: Baldomero Hendrickson on 03-05-2023 [facility] Work Phone: XR Chest Single viewOrdered By: Nya Ahmadi on 03-05-2023 [facility] Work Phone: Basic metabolic 2000 panelon 03-02-2023 Anion gap [Moles/Vol] 14 mmol/L Normal <=19 [facility] Comment on above: Performed By: #### 2 4321-2 #### MELISA Galvan ([id number]) [facility] () [address] [place] [address] Calcium [Mass/Vol] 9.0 mg/dL Normal 8.5-10.4 [facility] Comment on above: Performed By: #### 2 4320-2 #### MELISA Galvan ([id number]) [facility] () [address] [place] [address] Chloride [Moles/Vol] 107 mmol/L Normal 97-107 [facility] Comment on above: Performed By: #### 2 4320-2 #### MELISA Galvan ([id number]) [facility] () [address] [place] [address] CO2 [Moles/Vol] 21 mmol/L Low 24-31 [facility] Comment on above: Performed By: #### 2 4321-2 #### MELISA Galvan ([id number]) [facility] () [address] [place] [address] Creatinine [Mass/Vol] 0.80 mg/dL Normal 0.40-1.60 [facility] Comment on above: Performed By: #### 2 4320-2 #### MELISA Galvan ([id number]) [facility] () [address] [place] [address] GFR/1.73 sq M.predicted MDRD (S/P/Bld) [Vol rate/Area] mL/min/{1.73_m2} Normal >60 [facility] Comment on above: Result Comment: Calc ulations of estimated GFR are performed using the 2020 CKD-EPI Study Refit equation without the race variable for the IDMS-Traceable creatinine methods. https://jasn.asnjournals.org/content//ASN.24693457 88 Performed By: #### 2 4321-2 #### MELISA Galvan ([id number]) [facility] () [address] [place] [address] Glucose [Mass/Vol] 68 mg/dL Normal 65-99 [facility] Comment on above: Performed By: #### 2 4321-2 #### MELISA Galvan ([id number]) [facility] () [address] [place] [address] Potassium [Moles/Vol] 4.0 mmol/L Normal 3.4-5.1 [facility] Comment on above: Performed By: #### 2 4321-2 #### MELISA Galvan ([id number]) [facility] () [address] [place] [address] Sodium [Moles/Vol] 142 mmol/L Normal 133-145 [facility] Comment on above: Performed By: #### 2 4321-2 #### MELISA Galvan ([id number]) [facility] () [address] [place] [address] Urea nitrogen [Mass/Vol] 8 mg/dL Normal 8-25 [facility] Comment on above: Performed By: #### 2 4321-2 #### MELISA Galvan ([id number]) [facility] () [address] [place] [address] Blood type and Indirect anti body screen panel (Bld)on 03-02-2023 ABO group Nom (Bld) O Normal [facility] Comment on above: Performed By: #### 3 4532-2 #### MELISA Galvan ([id number]) [facility] ([facility]) [address] [place] [address] [place] Blood group antibody screen Ql Negative [facility] Comment on above: Performed By: #### 3 4532-2 #### MELISA Galvan ([id number]) [facility] ([facility]) [id number] [place] [address] [place] D Ag Ql (Bld) Positive [facility] Comment on above: Performed By: #### 3 4532-2 #### MELISA Galvan ([id number]) [facility] ([facility]) [address] Staphylococcus aureus.methic illin resistant isolateon 03-02-2023 MRSA isol Org specific cx Ql (Nose) Test: Staphylococcus aureus/MRSA colonization, Culture Specimen Source: Anterior Nares Specimen Type: Swab Specimen Date: 03/02/2023 3:17 PM Result Date: 03/04/2023 7:55 AM Result Status: Final result Abnormal: No Resulting Lab: [facility] [address] [place] [address] CULTURE No Staphylococcus aureus isolated [facility] Comment on above: Performed By: #### 5 2969-3 #### ALON Johnson ([id number]) [facility] ([facility]) [address] [place] [address] Alanine aminotransferase [En zymatic activity/volume] in Serum or PlasmaOrdered By: Roseline Mejia on 02-13-2023 ALT [Catalytic activity/Vol] 11 U/L Normal [facility] Comment on above: Performed By: #### C BC, BMP, HEPATIC, LIPASE #### [facility] [address] [place] [address] [place] Albumin [Mass/volume] in Ser um or Plasma by Bromocresol green (BCG) dye binding methoOrdered By: Roseline Mejia on 02-13-2023 Albumin BCG dye [Mass/Vol] 4.0 g/dL 3.5-5.7 [facility] Alkaline phosphatase [Enzyma tic activity/volume] in Serum or PlasmaOrdered By: Roseline Mejia on 02-13-2023 ALP [Catalytic activity/Vol] 55 U/L Normal 34-104 [facility] Comment on above: Performed By: #### C BC, BMP, HEPATIC, LIPASE #### [address] Aspartate aminotransferase [ Enzymatic activity/volume] in Serum or PlasmaOrdered By: Roseline Mejia on 02-13-2023 AST [Catalytic activity/Vol] 20 U/L Normal 13-39 [facility] Comment on above: Performed By: #### C BC, BMP, HEPATIC, LIPASE #### [address] Automated basophil %Ordered By: Roseline Mejia on 02-13-2023 Basophils/100 WBC (Bld) 1.2 % Normal . [facility] Comment on above: Performed By: #### C BC, BMP, HEPATIC, LIPASE #### [address] Automated basophil countOrde red By: Roseline Mejia on 02-13-2023 Basophils (Bld) [#/Vol] 0.1 10*3/uL Normal 0.0-0.2 [facility] Comment on above: Result Comment: PERF ORMED BY: [place] [address] PATHOLOGIST TALENT ACQUISITION ASSISTANT BAUTISTA BAKER M.D. Performed By: #### C BC, BMP, HEPATIC, LIPASE #### [address] Automated blood monocyte cou ntOrdered By: Roseline Mejia on 02-13-2023 Monocytes (Bld) [#/Vol] 0.3 10*3/uL Normal 0.0-0.8 [facility] Comment on above: Performed By: #### C BC, BMP, HEPATIC, LIPASE #### [address] Automated eosinophil %Ordere d By: Roseline Mejia on 02-13-2023 Eosinophils/100 WBC (Bld) 1.7 % Normal . [facility] Comment on above: Performed By: #### C BC, BMP, HEPATIC, LIPASE #### [address] Automated eosinophil countOr dered By: Roseline Mejia on 02-13-2023 Eosinophils (Bld) [#/Vol] 0.1 10*3/uL Normal 0.0-0.45 [facility] Comment on above: Performed By: #### C BC, BMP, HEPATIC, LIPASE #### [address] Automated monocyte %Ordered By: Roseline Mejia on 02-13-2023 Monocytes/100 WBC (Bld) 7.3 % Normal . [facility] Comment on above: Performed By: #### C BC, BMP, HEPATIC, LIPASE #### [address] Automated neutrophil %Ordere d By: Roseline Mejia on 02-13-2023 Neutrophils/100 WBC (Bld) 49.0 % Normal . [facility] Comment on above: Performed By: #### C BC, BMP, HEPATIC, LIPASE #### [address] Automated urine color determ inationOrdered By: Roseline Mejia on 02-13-2023 Color (U) Yellow Normal Yellow [facility] Comment on above: Order Comment: Name Collection Type:: Clean-Voided Midstream Performed By: #### C BC, BMP, HEPATIC, LIPASE #### [address] Basic Metabolic Panelon 01-17 Creatinine Clr Calc Pharmacy 119.02 Normal [facility] Comment on above: Performed By: #### C BC, BMP, HEPATIC, LIPASE #### [address] GFR/1.73 sq M.predicted MDRD (S/P/Bld) [Vol rate/Area] mL/min/{1.73_m2} Normal [facility] Comment on above: Performed By: #### C BC, BMP, HEPATIC, LIPASE #### [address] Bilirubin Test strip Ql (U)O rdered By: Roseline Mejia on 02-13-2023 Bilirubin Ql (U) Negative Negative [facility] Bilirubin.direct [Mass/volum e] in Serum or PlasmaOrdered By: Roseline Mejia on 02-13-2023 Bilirubin.direct [Mass/Vol] 0.10 mg/dL 0.03-0.18 [facility] Bilirubin.total [Mass/volume ] in Serum or PlasmaOrdered By: Roseline Mejia on 02-13-2023 Bilirubin [Mass/Vol] 0.5 mg/dL Normal 0.3-1.0 [facility] Comment on above: Performed By: #### C BC, BMP, HEPATIC, LIPASE #### [address] abdomen pelvis w conon CT abdomen pelvis w con [facility] Main [place] [address] [place] [address] CT Scan Report Signed Patient: Abbey Garcia MR#: [id number] : 1990 Acct:[id number] Age/Sex: 32 / F ADM Date: 02/13/23 Loc: ER Room: Type: [facility] ER Attending Dr: Copies to: DO Roseline Forman DO, RES Ordering Provider: Roseline Mejai DO, RES Date of Service: 02/13/23 CT/CT [...] Jason Palomo M.D.02/13/2023 3:42 PM Dictation Location: [place] [address] Transcribed By: [facility] 02/13/23 1542 Dictated By: Jason Palomo DO 02/13/23 1537 Signed By: 02/13/23 1542 Normal [facility] Calcium [Mass/volume] in Ser um or PlasmaOrdered By: Roseline Mejia on 02-13-2023 Calcium [Mass/Vol] 8.8 mg/dL Normal 8.6-10.3 [facility] Comment on above: Performed By: #### C BC, BMP, HEPATIC, LIPASE #### [address] Carbon dioxide, total [Moles /volume] in Serum or PlasmaOrdered By: Roseline Mejia on 02-13-2023 CO2 [Moles/Vol] 21.2 mmol/L Normal 21.0-31.0 [facility] Comment on above: Performed By: #### C BC, BMP, HEPATIC, LIPASE #### [facility] [address] Chloride [Moles/volume] in S elder or PlasmaOrdered By: Roseline Mejia on 02-13-2023 Chloride [Moles/Vol] 109 mmol/L High 98-107 [facility] Comment on above: Performed By: #### C BC, BMP, HEPATIC, LIPASE #### [facility] [address] Complete Blood Count Auto Di ffon 02-13-2023 Mean Corpuscular HGB Conc 34.9 g/dL Normal 32.0-35.0 [facility] Comment on above: Performed By: #### C BC, BMP, HEPATIC, LIPASE #### [address] Monocytes/100 WBC (Bld) 17.39 % Normal 0.00-20.00 [facility] Comment on above: Performed By: #### C BC, BMP, HEPATIC, LIPASE #### [address] NRBC% 0.2 /100{WBC} Normal 0-0.5 [facility] Comment on above: Performed By: #### C BC, BMP, HEPATIC, LIPASE #### [address] Creatinine [Mass/volume] in Serum or PlasmaOrdered By: Roseline Mejia on 02-13-2023 Creatinine [Mass/Vol] 0.73 mg/dL Normal 0.60-1.20 [facility] Comment on above: Performed By: #### C BC, BMP, HEPATIC, LIPASE #### [address] Erythrocyte distribution wid th [Ratio] by Automated countOrdered By: Roseline Mejia on 02-13-2023 Erythrocyte distribution width (RBC) [Ratio] 13.0 % Normal 11.9-15.3 [facility] Comment on above: Performed By: #### C BC, BMP, HEPATIC, LIPASE #### [address] Erythrocytes [#/volume] in B lood by Automated countOrdered By: Roseline Mejia on 02-13-2023 RBC (Bld) [#/Vol] 4.07 10*6/uL Normal 3.60-5.00 [facility] Comment on above: Performed By: #### C BC, BMP, HEPATIC, LIPASE #### [address] Glucose [Mass/volume] in Ser um or PlasmaOrdered By: Roseline Mejia on 02-13-2023 Glucose [Mass/Vol] 85 mg/dL Normal 70-100 [facility] Comment on above: ADA recommended refe rence rangeRandom Glucose Reference Range is dependent on time and content of last meal. Glucose of more than 200 mg/dL in a nonstressed, ambulatory subject supports the diagnosis of Diabetes Mellitus. Result Comment: [place] om Glucose Reference Range is dependent on time and content of last meal. Glucose of more than 200 mg/dL in a nonstressed, ambulatory subject supports the diagnosis of Diabetes Mellitus. ADA recommended reference range Performed By: #### C BC, BMP, HEPATIC, LIPASE #### [place] [address] [place] HCG ( test) [place].rapi d Ql (U)Ordered By: Roseline Mejia on 02-13-2023 HCG ( test) Ql (U) Negative [facility] HCG,Urineon 02-13-2023 Beta HCG ( test) Ql (U) Negative Normal [facility] Comment on above: Order Comment: Name Collection Type:: Clean-Voided Midstream Result Comment: PERF ORMED BY: [place] [address] PATHOLOGIST TALENT ACQUISITION ASSISTANT BAUTISTA BAKER M.D. Performed By: #### C BC, BMP, HEPATIC, LIPASE #### [facility] [address] [place] [address] Hematocrit [Volume Fraction] of Blood by Automated countOrdered By: Roseline Mejia on 02-13-2023 Hematocrit (Bld) [Volume fraction] 36.3 % Normal 34.0-46.4 [facility] Comment on above: Performed By: #### C BC, BMP, HEPATIC, LIPASE #### [address] Hemoglobin [Mass/volume] in BloodOrdered By: Roseline Mejia on 02-13-2023 Hemoglobin (Bld) [Mass/Vol] 12.7 g/dL Normal 11.8-15.4 [facility] Comment on above: Performed By: #### C BC, BMP, HEPATIC, LIPASE #### [facility] [address] Hepatic Panelon 02-13-2023 Albumin [Mass/Vol] 4.0 g/dL Normal 3.5-5.7 [facility] Comment on above: Performed By: #### C BC, BMP, HEPATIC, LIPASE #### [facility] [address] Bilirubin,Indirect 0.4 mg/dL Normal [facility] Comment on above: Performed By: #### C BC, BMP, HEPATIC, LIPASE #### [facility] [address] Bilirubin.indirect [Mass/Vol] 0.10 mg/dL Normal 0.03-0.18 [facility] Comment on above: Performed By: #### C BC, BMP, HEPATIC, LIPASE #### [address] Ketones Auto test strip (U) [Mass/Vol]Ordered By: Roseline Mejia on 02-13-2023 Ketones (U) [Mass/Vol] Trace Negative [facility] Leukocytes [#/volume] correc darvin for nucleated erythrocytes in Blood by Automated counOrdered By: Roseline Mejia on 02-13-2023 WBC corrected for nucl RBC Auto (Bld) [#/Vol] 4.2 10*3/uL 3.8-11.6 [facility] Leukocytes [#/volume] in Blo od by Automated countOrdered By: Roseline Mejia on 02-13-2023 WBC (Bld) [#/Vol] 4.2 10*3/uL Normal 3.8-11.6 [facility] Comment on above: Performed By: #### C BC, BMP, HEPATIC, LIPASE #### [facility] [address] Lipase [Enzymatic activity/v olume] in Serum or PlasmaOrdered By: Roseline Mejia on 02-13-2023 Lipase [Catalytic activity/Vol] 42.0 U/L Normal 11.0-82.0 [facility] Comment on above: Result Comment: PERF ORMED BY: [place] [address] PATHOLOGIST TALENT ACQUISITION ASSISTANT BAUTISTA BAKER M.D. Performed By: #### C BC, BMP, HEPATIC, LIPASE #### [facility] [address] [place] [address] Lymphocytes [#/volume] in Bl ood by Automated countOrdered By: Roseline Mejia on 02-13-2023 Lymphocytes (Bld) [#/Vol] 1.7 10*3/uL Normal 1.00-4.8 [facility] Comment on above: Performed By: #### C BC, BMP, HEPATIC, LIPASE #### [address] Lymphocytes/100 leukocytes i n Blood by Automated countOrdered By: Roseline Mejia on 02-13-2023 Lymphocytes/100 WBC (Bld) 40.8 % Normal . [facility] Comment on above: Performed By: #### C BC, BMP, HEPATIC, LIPASE #### [facility] [address] [place] [address] MCH [Entitic mass] by Automa darvin countOrdered By: Roseline Mejia on 02-13-2023 MCH (RBC) [Entitic mass] 31.1 pg Normal 24.7-34.3 [facility] Comment on above: Performed By: #### C BC, BMP, HEPATIC, LIPASE #### [address] MCHC Auto (RBC) [Mass/Vol]Or dered By: Roseline Mejia on 02-13-2023 MCHC (RBC) [Mass/Vol] 34.9 g/dL 32.0-35.0 [facility] MCV [Entitic volume] by Auto mated countOrdered By: Roseline Mejia on 02-13-2023 MCV (RBC) [Entitic vol] 89.2 fL Normal 80-100 [facility] Comment on above: Performed By: #### C BC, BMP, HEPATIC, LIPASE #### [facility] [address] Monocyte distribution width [Entitic volume] in Blood by AutomatedOrdered By: Roseline Mejia on 02-13-2023 Monocyte distribution width Auto (Bld) [Entitic vol] 17.39 % 0.00-20.00 [facility] Neutrophils [#/volume] in Bl ood by Automated countOrdered By: Roseline Mejia on 02-13-2023 Neutrophils (Bld) [#/Vol] 2.0 10*3/uL Normal 1.8-7.7 [facility] Comment on above: Performed By: #### C BC, BMP, HEPATIC, LIPASE #### [facility] [address] [place] [address] Nitrite Test strip Ql (U)Ord ered By: Roseline Mejia on 02-13-2023 Nitrite Ql (U) Negative Negative [facility] No Panel InformationOrdered By: Roseline Mejia on 02-13-2023 Estimated GFR (CKD-EPI) > 60.0 mL/Min [facility] Creatinine Clearance (Chem 119.02 [facility] Nucleated erythrocytes [Pres ence] in Blood by Automated countOrdered By: Roseline Mejia on 02-13-2023 Nucleated RBC Auto Ql (Bld) 0.2 /100{WBC} 0-0.5 [facility] Platelet mean volume [Entiti c volume] in Blood by Automated countOrdered By: Roseline Mejia on 02-13-2023 Platelet mean volume (Bld) [Entitic vol] 8.8 fL Normal 6.3-10.7 [facility] Comment on above: Performed By: #### C BC, BMP, HEPATIC, LIPASE #### [facility] [address] [place] [address] Platelets [#/volume] in Bloo d by Automated countOrdered By: Roseline Mejia on 02-13-2023 Platelets (Bld) [#/Vol] 288 10*3/uL Normal 150-450 [facility] Comment on above: Performed By: #### C BC, BMP, HEPATIC, LIPASE #### [address] Potassium [Moles/volume] in Serum or PlasmaOrdered By: Roseline Mejia on 02-13-2023 Potassium [Moles/Vol] 3.7 mmol/L Normal 3.5-5.1 [facility] Comment on above: Performed By: #### C BC, BMP, HEPATIC, LIPASE #### [address] Protein Auto test strip (U) [Mass/Vol]Ordered By: Roseline Mejia on 02-13-2023 Protein (U) [Mass/Vol] Negative Negative [facility] Protein [Mass/volume] in Ser um or PlasmaOrdered By: Roseline Mejia on 02-13-2023 Protein [Mass/Vol] 6.9 g/dL Normal 6.4-8.9 [facility] Comment on above: Performed By: #### C BC, BMP, HEPATIC, LIPASE #### [address] Serum globulin measurement b y calculation (mass/volume)Ordered By: Roseline Mejia on 02-13-2023 Globulin (S) [Mass/Vol] 2.9 g/dL Normal [facility] Comment on above: Performed By: #### C BC, BMP, HEPATIC, LIPASE #### [address] Serum or plasma albumin/glob ulin mass ratioOrdered By: Roseline Mejia on 02-13-2023 Albumin/Globulin [Mass ratio] 1.4 {ratio} Normal [facility] Comment on above: Performed By: #### C BC, BMP, HEPATIC, LIPASE #### [address] Serum or plasma anion gap de terminationOrdered By: Roseline Mejia on 02-13-2023 Anion gap [Moles/Vol] 10.5 mmol/L Normal 6.0-15.0 [facility] Comment on above: Performed By: #### C BC, BMP, HEPATIC, LIPASE #### [facility] [address] [place] [address] Serum or plasma non-glucuron idated bilirubin measurement (mass/volume)Ordered By: Roseline Mejia on 02-13-2023 Bilirubin.indirect [Mass/Vol] 0.4 mg/dL [facility] Sodium [Moles/volume] in Ser um or PlasmaOrdered By: Roseline Mejia on 02-13-2023 Sodium [Moles/Vol] 137 mmol/L Normal 136-145 [facility] Comment on above: Performed By: #### C BC, BMP, HEPATIC, LIPASE #### [address] Specific gravity Auto test s trip (U) [Rel density]Ordered By: Roseline Mejia on 02-13-2023 Specific gravity (U) [Rel density] 1.017 1.001-1.030 [facility] Urea nitrogen [Mass/volume] in Serum or PlasmaOrdered By: Roseline Mejia on 02-13-2023 Urea nitrogen [Mass/Vol] 10 mg/dL Normal 7-25 [facility] Comment on above: Performed By: #### C BC, BMP, HEPATIC, LIPASE #### [address] Urinalysison 02-13-2023 Appearance (U) Clear Normal Clear [facility] Comment on above: Order Comment: Name Collection Type:: Clean-Voided Midstream Performed By: #### C BC, BMP, HEPATIC, LIPASE #### [address] Bilirubin,Urine Negative Normal Negative [facility] Comment on above: Order Comment: Name Collection Type:: Clean-Voided Midstream Performed By: #### C BC, BMP, HEPATIC, LIPASE #### [address] Glucose Ql (U) Normal Normal Normal [facility] Comment on above: Order Comment: Name Collection Type:: Clean-Voided Midstream Performed By: #### C BC, BMP, HEPATIC, LIPASE #### [address] Ketones Ql (U) Trace High Negative [facility] Comment on above: Order Comment: Name Collection Type:: Clean-Voided Midstream Performed By: #### C BC, BMP, HEPATIC, LIPASE #### [address] Leukocyte esterase Test strip Ql (U) Negative Normal Negative [facility] Comment on above: Order Comment: Name Collection Type:: Clean-Voided Midstream Performed By: #### C BC, BMP, HEPATIC, LIPASE #### [place] [address] [place] Nitrite,Urine Negative Normal Negative [facility] Comment on above: Order Comment: Name Collection Type:: Clean-Voided Midstream Performed By: #### C BC, BMP, HEPATIC, LIPASE #### [address] Occult Blood,Urine Negative Normal Negative [facility] Comment on above: Order Comment: Name Collection Type:: Clean-Voided Midstream Performed By: #### C BC, BMP, HEPATIC, LIPASE #### [address] Protein,Urine Negative Normal Negative [facility] Comment on above: Order Comment: Name Collection Type:: Clean-Voided Midstream Performed By: #### C BC, BMP, HEPATIC, LIPASE #### [place] [address] [place] Specificy [place],Urine 1.017 Normal 1.001-1.030 [facility] Comment on above: Order Comment: Name Collection Type:: Clean-Voided Midstream Performed By: #### C BC, BMP, HEPATIC, LIPASE #### [address] Urobilinogen,Urine Normal Normal Normal [facility] Comment on above: Order Comment: Name Collection Type:: Clean-Voided Midstream Performed By: #### C BC, BMP, HEPATIC, LIPASE #### [facility] [address] Urine clarity by refractomet ry automatedOrdered By: Roseline Mejia on 02-13-2023 Clarity Refractometry automated (U) Clear Clear [facility] Urine glucose measurement by automated test strip (mass/volume)Ordered By: Roseline Mejia on 02-13-2023 Glucose Auto test strip (U) [Mass/Vol] Normal mg/dL Normal [facility] Urine hemoglobin detection b y automated test stripOrdered By: Roseline Mejia on 02-13-2023 Hemoglobin Auto test strip Ql (U) Negative Negative [facility] Urine leukocyte esterase det ection by automated test stripOrdered By: Roseline Mejia on 02-13-2023 Leukocyte esterase Auto test strip Ql (U) Negative Negative [facility] Urine pH measurement by auto mated test stripOrdered By: Roseline Mejia on 02-13-2023 pH (U) 5.5 [pH] Normal 5.0-9.0 [facility] Comment on above: Order Comment: Name Collection Type:: Clean-Voided Midstream Performed By: #### C BC, BMP, HEPATIC, LIPASE #### [facility] [address] Urobilinogen Auto test strip (U) [Mass/Vol]Ordered By: Roseline Mejia on 02-13-2023 Urobilinogen (U) [Mass/Vol] Normal mg/dL Normal [facility] CBC W Auto Differential pane l (Bld)on 02-12-2023 Basophils (Bld) [#/Vol] 0.02 x10*3/uL Normal 0.00-0.10 [facility] Comment on above: Performed By: #### 5 7021-8 #### OUMAR BRICEÑO (33023) [facility] ([facility]) [address] [place] [address] Basophils/100 WBC (Bld) 0.5 % Normal 0.0-2.0 [facility] Comment on above: Performed By: #### 5 7021-8 #### OUMAR BRICEÑO (25510) [facility] ([facility] [address] [place] [address] Eosinophils (Bld) [#/Vol] 0.06 x10*3/uL Normal 0.00-0.70 [facility] Comment on above: Performed By: #### 5 7021-8 #### OUMAR BRICEÑO (85358) [facility] ([facility] [address] [place] [address] Eosinophils/100 WBC (Bld) 1.4 % Normal 0.0-6.0 [facility] Comment on above: Performed By: #### 5 7021-8 #### OUMAR BRICEÑO (35378) [facility] ([facility] [address] [place] [address] Erythrocyte distribution width (RBC) [Ratio] 12.1 % Normal 11.5-14.5 [facility] Comment on above: Performed By: #### 5 7021-8 #### OUMAR BRICEÑO (38873) [facility] ([facility] [address] [place] [address] Hematocrit (Bld) [Volume fraction] 37.9 % Normal 36.0-46.0 [facility] Comment on above: Performed By: #### 5 7021-8 #### OUMAR BRICEÑO (65759) [facility] ([facility]) [address] [place] [address] Hemoglobin (Bld) [Mass/Vol] 12.8 g/dL Normal 12.0-16.0 [facility] Comment on above: Performed By: #### 5 7021-8 #### OUMAR BRICEÑO (04357) [facility] ([facility] [address] [place] [address] Immature granulocytes (Bld) [#/Vol] 0.01 x10*3/uL Normal 0.00-0.70 [facility] Comment on above: Performed By: #### 5 7021-8 #### OUMAR BRICEÑO (75888) [facility] ([facility]) [address] [place] [address] Immature granulocytes/100 WBC (Bld) 0.2 % Normal 0.0-0.9 [facility] Comment on above: Result Comment: Janny ture Granulocyte Count (IG) includes promyelocytes, myelocytes and metamyelocytes but does not include bands. Percent differential counts (%) should be interpreted in the context of the absolute cell counts (cells/UL). Performed By: #### 5 7021-8 #### OUMAR BRICEÑO (73760) [facility] ([facility]) [address] [place] [address] Lymphocytes (Bld) [#/Vol] 1.63 x10*3/uL Normal 1.20-4.80 [facility] Comment on above: Performed By: #### 5 7021-8 #### OUMAR BRICEÑO (59846) [facility] ([facility]) [address] [place] [address] Lymphocytes/100 WBC (Bld) 38.9 % Normal 13.0-44.0 [facility] Comment on above: Performed By: #### 5 7021-8 #### OUMAR BRICEÑO (91638) [facility] ([facility]) [address] [place] [address] MCH (RBC) [Entitic mass] 30.5 pg Normal 26.0-34.0 [facility] Comment on above: Performed By: #### 5 7021-8 #### OUMAR BRICEÑO (97584) [facility] ([facility]) [address] [place] [address] MCHC (RBC) [Mass/Vol] 33.8 g/dL Normal 32.0-36.0 [facility] Comment on above: Performed By: #### 5 7021-8 #### OUMAR BRICEÑO (88488) [facility] ([facility]) [address] [place] [address] MCV (RBC) [Entitic vol] 91 fL Normal 80-100 [facility] Comment on above: Performed By: #### 5 7021-8 #### OUMAR BRICEÑO (46730) [facility] ([facility]) [address] [place] [address] Monocytes (Bld) [#/Vol] 0.26 x10*3/uL Normal 0.10-1.00 [facility] Comment on above: Performed By: #### 5 7021-8 #### OUMAR BRICEÑO (57006) [facility] ([facility]) [address] [place] [address] Monocytes/100 WBC (Bld) 6.2 % Normal 2.0-10.0 [facility] Comment on above: Performed By: #### 5 7021-8 #### OUMAR BRICEÑO (12119) [facility] ([facility]) [address] [place] [address] Neutrophils (Bld) [#/Vol] 2.21 x10*3/uL Normal 1.20-7.70 [facility] Comment on above: Result Comment: Perc ent differential counts (%) should be interpreted in the context of the absolute cell counts (cells/uL). Performed By: #### 5 7021-8 #### OUMAR BRICEÑO (04301) [facility] ([facility]) [address] [place] [address] Neutrophils/100 WBC (Bld) 52.8 % Normal 40.0-80.0 [facility] Comment on above: Performed By: #### 5 7021-8 #### OUMAR BRICEÑO (36501) [facility] ([facility] [address] [place] [address] Nucleated RBC/100 WBC (Bld) [Ratio] 0.0 /100 WBCs Normal 0.0-0.0 [facility] Comment on above: Performed By: #### 5 7021-8 #### OUMAR BRICEÑO (90288) [facility] ([facility]) [address] [place] [address] Platelets (Bld) [#/Vol] 291 x10*3/uL Normal 150-450 [facility] Comment on above: Performed By: #### 5 7021-8 #### OUMAR BRICEÑO (49293) [facility] ([facility]) [address] [place] [address] RBC (Bld) [#/Vol] 4.19 x10*6/uL Normal 4.00-5.[address] [facility] Comment on above: Performed By: #### 5 7021-8 #### OUMAR BRICEÑO (10124) [facility] ([facility]) [address] [place] [address] WBC (Bld) [#/Vol] 4.2 x10*3/uL Low 4.4-11.3 [facility] Comment on above: Performed By: #### 5 7021-8 #### OUMAR BRICEÑO (56195) [facility] ([facility]) [address] [place] [address] Comprehensive metabolic 2000 panelon 02-12-2023 Albumin BCP dye [Mass/Vol] 4.2 g/dL Normal 3.4-5.0 [facility] Comment on above: Performed By: #### 2 4323-8 #### OUMAR BRICEÑO (08418) [facility] ([facility]) [address] [place] [address] ALP [Catalytic activity/Vol] 55 U/L Normal 33-110 [facility] Comment on above: Performed By: #### 2 4323-8 #### OUMRA BRICEÑO (98161) [facility] ([facility]) [address] [place] [address] ALT With P-5'-P [Catalytic activity/Vol] 13 U/L Normal 7-45 [facility] Comment on above: Result Comment: Umm ents treated with Sulfasalazine may generate falsely decreased results for ALT. Performed By: #### 2 4323-8 #### OUMAR BRICEÑO (57580) [facility] ([facility]) [address] [place] [address] Anion gap [Moles/Vol] 13 mmol/L Normal 10-20 [facility] Comment on above: Performed By: #### 2 4323-8 #### OUMAR BRICEÑO (00815) [facility] ([facility]) [address] [place] [address] AST With P-5'-P [Catalytic activity/Vol] 21 U/L Normal 9-39 [facility] Comment on above: Performed By: #### 2 4323-8 #### OUMAR BRICEÑO (53588) [facility] ([facility]) [address] [place] [address] Bilirubin [Mass/Vol] 0.5 mg/dL Normal 0.0-1.2 [facility] Comment on above: Performed By: #### 2 4323-8 #### OUMAR BRICEÑO (43207) [facility] ([facility]) [address] [place] [address] Calcium [Mass/Vol] 8.9 mg/dL Normal 8.6-10.3 [facility] Comment on above: Performed By: #### 2 4323-8 #### OUMAR BRICEÑO (38747) [facility] ([facility]) [address] [place] [address] Chloride [Moles/Vol] 107 mmol/L Normal 98-107 [facility] Comment on above: Performed By: #### 2 4323-8 #### OUMAR BRICEÑO (76560) [facility] ([facility]) [address] [place] [address] CO2 [Moles/Vol] 23 mmol/L Normal 21-32 [facility] Comment on above: Performed By: #### 2 4323-8 #### OUMAR BRICEÑO (60733) [facility] ([facility]) [address] [place] [address] Creatinine [Mass/Vol] 0.73 mg/dL Normal 0.50-1.05 [facility] Comment on above: Performed By: #### 2 4323-8 #### OUMAR BRICEÑO (58641) [facility] ([facility]) [address] [place] [address] GFR/1.73 sq M.predicted MDRD (S/P/Bld) [Vol rate/Area] mL/min/{1.73_m2} Normal >60 [facility] Comment on above: Result Comment: Calc ulations of estimated GFR are performed using the 2020 CKD-EPI Study Refit equation without the race variable for the IDMS-Traceable creatinine methods. https://jasn.asnjournals.org/content/early//ASN.07028588 88 Performed By: #### 2 4323-8 #### OUMAR BRICEÑO (93108) [facility] ([facility]) [address] [place] [address] Glucose [Mass/Vol] 84 mg/dL Normal 74-99 [facility] Comment on above: Performed By: #### 2 4323-8 #### OUMAR BRICEÑO (28586) [facility] ([facility] [address] [place] [address] Potassium [Moles/Vol] 3.6 mmol/L Normal 3.5-5.3 [facility] Comment on above: Performed By: #### 2 4323-8 #### OUMAR BRICEÑO (20576) [facility] ([facility] [address] [place] [address] Protein [Mass/Vol] 7.0 g/dL Normal 6.4-8.2 [facility] Comment on above: Performed By: #### 2 4323-8 #### OUMAR BRICEÑO (53366) [facility] ([facility]) [address] [place] [address] Sodium [Moles/Vol] 139 mmol/L Normal 136-145 [facility] Comment on above: Performed By: #### 2 4323-8 #### OUMAR BRICEÑO (64921) [facility] ([facility] [address] [place] [address] Urea nitrogen [Mass/Vol] 9 mg/dL Normal 6-23 [facility] Comment on above: Performed By: #### 2 4323-8 #### OUMAR BRICEÑO (85007) [facility] ([facility]) [address] [place] [address] Lactateon 02-12-2023 Lactate [Moles/Vol] 0.6 mmol/L Normal 0.4-2.0 [facility] Comment on above: Order Comment: Venip uncture immediately after or during the administration of Metamizole may lead to falsely low results. Testing should be performed immediately prior to Metamizole dosing. Performed By: #### 2 524-7 #### OUMAR BRICEÑO (17565) [facility] ([facility]) [address] [place] [address] Triacylglycerol lipaseon Lipase [Catalytic activity/Vol] 43 U/L Normal 9-82 [facility] Comment on above: Order Comment: Venip uncture immediately after or during the administration of Metamizole may lead to falsely low results. Testing should be performed immediately prior to Metamizole dosing. Performed By: #### 3 040-3 #### OUMAR BRICEÑO (30213) [facility] ([facility]) [address] [place] [address] Urinalysis complete panel (U )on 02-12-2023 Appearance (U) Clear Normal Clear [facility] Comment on above: Performed By: #### 2 4356-8 #### OUMAR BRICEÑO (43305) [facility] ([facility] [address] [place] [address] Bilirubin (U) [Mass/Vol] Negative Normal NEGATIVE [facility] Comment on above: Performed By: #### 2 4356-8 #### OUMAR BRICEÑO (90783) [facility] ([facility] [address] [place] [address] Color (U) Yellow Normal Straw, Yellow [facility] Comment on above: Performed By: #### 2 4356-8 #### OUMAR BRICEÑO (26824) [facility] ([facility] [address] [place] [address] Glucose Auto test strip (U) [Mass/Vol] Negative Normal NEGATIVE [facility] Comment on above: Performed By: #### 2 4356-8 #### OUMAR BRICEÑO (90214) [facility] ([facility] [address] [place] [address] Ketones (U) [Mass/Vol] Negative Normal NEGATIVE [facility] Comment on above: Performed By: #### 2 4356-8 #### OUMAR BRICEÑO (64835) [facility] ([facility] [address] [place] [address] Leukocyte esterase Auto test strip Ql (U) Negative Normal NEGATIVE [facility] Comment on above: Performed By: #### 2 4356-8 #### OUMAR BRICEÑO (51560) [facility] ([facility] [address] [place] [address] Nitrite Auto test strip Ql (U) Negative Normal NEGATIVE [facility] Comment on above: Performed By: #### 2 4356-8 #### OUMAR BRICEÑO ([id number]) [facility] ([facility] [address] [place] [address] pH (U) 6.0 [pH] Normal 5.0, 5.5, 6.0, 6.5, 7.0, 7.5, 8.0 [facility] Comment on above: Performed By: #### 2 4356-8 #### OUMAR BRICEÑO ([id number]) [facility] ([facility] [address] [place] [address] Protein (U) [Mass/Vol] Negative Normal NEGATIVE [facility] Comment on above: Performed By: #### 2 4356-8 #### OUMAR BRICEÑO (97063) [facility] ([facility] [address] [place] [address] RBC (U) [#/Vol] Negative Normal NEGATIVE [facility] Comment on above: Performed By: #### 2 4356-8 #### OUMAR BRICEÑO ([id number]) [facility] ([facility]) [address] [place] [address] Specific gravity (U) [Rel density] 1.021 Normal 1.005-1.035 [facility] Comment on above: Performed By: #### 2 4356-8 #### OUMAR BRICEÑO ([id number]) [facility] ([facility] [address] [place] [address] Urobilinogen (U) [Mass/Vol] mg/dL Normal <2.0 [facility] Comment on above: Performed By: #### 2 4356-8 #### OUMAR BRICEÑO (46334) [facility] ([facility]) [address] [place] [address] CNPNon 02-11-2023 CNPN Normal [facility] HISTORY PHYSICALon HISTORY PHYSICAL HNO ID: [id number] Author: Vic Ramos MD Service: Pain Management [...] DATE: February 10, 2023 TIME: 2:00 PM [facility] HISTORY PHYSICAL HNO ID: [id number] Author: Anam Carter APRN.MINI SHIFTER Service: General Internal Medicine Author Type: Nurse Practitioner Type: HANDP Filed: 02/10/2023 2:04 PM Note Text: Abbey Garcia returns to [facility] for the treatment [...] syndrome Plan: Block celiac plexus Anam Carter APRN.[facility] OPERATIVE NOon 02-10-2023 OPERATIVE NO HNO ID: [id number] Author: Vic Ramos MD Service: Pain Management Author Type: Anesthesiologist Type: Operative Report Filed: 02/10/2023 2:41 PM Note Text: [facility] Pre-Procedure Note Patient Name: Abbey Garcia SUBJECTIVE: Abbey Garcia is a 32 year old female who presents to [facility]. This is her 1st. Patient denies any contraindications to the procedure including . 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 OBJECTIVE: BP 121/74 [...] procedure. Vic Ramos MD February 10, 2023 [facility] Post-Procedure Note Patient [...] 10, 2023 day of surgery Normal [facility] Family Medicine Office/Clini c Noteon 02-03-2023 Family Medicine Office/Clinic Note Normal [facility] Comment on above: Result Comment: Elec tronically Signed By: Jaquan Paula\.rene\Date and Time Signed: 02/03/23 15:18 EST Zachary 01-15-2023 CNPN Normal [facility] VASC US MESENTERIC ARTERY DU PLEX COMPLETEon 01-14-2023 VASC US MESENTERIC ARTERY DUPLEX COMPLETE [place] [id number] Vascular Lab Report [facility] US MESENTERIC ARTERY DUPLEX COMPLETE Patient Name: ABBEY PHIPPS Reading Physician: [id number] Boggs MD, DORA Study Date: 01/14/2023 Ordering Provider: [id number] SHERRY MAGAÑA MRN/PID: [id number] Fellow: Technologist: Anam Mc RVT Date of /Age: 2 1990 / 32 years Technologist 2: Gender: F Admission Status: Outpatient Location Performed: [facility] 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 History of gastric bypass with [...] PSV 116 cm/s Splenic PSV 77 cm/s [id number] Boggs MD, DORA Final Normal [facility] CBC W Auto Differential pane l (Bld)on 01-13-2023 Basophils (Bld) [#/Vol] 0.04 x10*3/uL Normal 0.00-0.10 [facility] Comment on above: Performed By: #### 5 7021-8 #### MELISA Galvan ([id number]) [facility] ([facility]) [address] [place] [address] Basophils/100 WBC (Bld) 0.7 % Normal 0.0-2.0 [facility] Comment on above: Performed By: #### 5 7021-8 #### MELISA Galvan ([id number]) [facility] () [address] [place] [address] Eosinophils (Bld) [#/Vol] 0.13 x10*3/uL Normal 0.00-0.70 [facility] Comment on above: Performed By: #### 5 7021-8 #### MELISA Galvan (27383) [facility] () [address] [place] [address] Eosinophils/100 WBC (Bld) 2.2 % Normal 0.0-6.0 [facility] Comment on above: Performed By: #### 5 7021-8 #### MELISA Galvan (86684) [facility] () [address] [place] [address] Erythrocyte distribution width (RBC) [Ratio] 12.4 % Normal 11.5-14.5 [facility] Comment on above: Performed By: #### 5 7021-8 #### MELISA Galvan (64471) [facility] () [address] [place] [address] Hematocrit (Bld) [Volume fraction] 36.6 % Normal 36.0-46.0 [facility] Comment on above: Performed By: #### 5 7021-8 #### MELISA Galvan ([id number]) [facility] () [address] [place] [address] Hemoglobin (Bld) [Mass/Vol] 12.6 g/dL Normal 12.0-16.0 [facility] Comment on above: Performed By: #### 5 7021-8 #### MELISA Galvan (56284) [facility] () [address] [place] [address] Immature granulocytes (Bld) [#/Vol] 0.01 x10*3/uL Normal 0.00-0.70 [facility] Comment on above: Performed By: #### 5 7021-8 #### MELISA Galvan ([id number]) [facility] () [address] [place] [address] Immature granulocytes/100 WBC (Bld) 0.2 % Normal 0.0-0.9 [facility] Comment on above: Result Comment: Janny ture Granulocyte Count (IG) includes promyelocytes, myelocytes and metamyelocytes but does not include bands. Percent differential counts (%) should be interpreted in the context of the absolute cell counts (cells/UL). Performed By: #### 5 7021-8 #### MELISA Galvan (79776) [facility] () [address] [place] [address] Lymphocytes (Bld) [#/Vol] 2.26 x10*3/uL Normal 1.20-4.80 [facility] Comment on above: Performed By: #### 5 7021-8 #### MELISA Galvan (35234) [facility] () [address] [place] [address] Lymphocytes/100 WBC (Bld) 39.0 % Normal 13.0-44.0 [facility] Comment on above: Performed By: #### 5 7021-8 #### MELISA Galvan (28598) [facility] () [address] [place] [address] MCH (RBC) [Entitic mass] 30.7 pg Normal 26.0-34.0 [facility] Comment on above: Performed By: #### 5 7021-8 #### MELISA Galvan ([id number]) [facility] () [address] [place] [address] MCHC (RBC) [Mass/Vol] 34.4 g/dL Normal 32.0-36.0 [facility] Comment on above: Performed By: #### 5 7021-8 #### MELISA Galvan (54464) [facility] () [address] [place] [address] MCV (RBC) [Entitic vol] 89 fL Normal 80-100 [facility] Comment on above: Performed By: #### 5 7021-8 #### MELISA Galvan ([id number]) [facility] () [address] [place] [address] Monocytes (Bld) [#/Vol] 0.41 x10*3/uL Normal 0.10-1.00 [facility] Comment on above: Performed By: #### 5 7021-8 #### MELISA Galvan ([id number]) [facility] () [address] [place] [address] Monocytes/100 WBC (Bld) 7.1 % Normal 2.0-10.0 [facility] Comment on above: Performed By: #### 5 7021-8 #### MELISA Galvan ([id number]) [facility] () [address] [place] [address] Neutrophils (Bld) [#/Vol] 2.95 x10*3/uL Normal 1.20-7.70 [facility] [place] Comment on above: Result Comment: Perc ent differential counts (%) should be interpreted in the context of the absolute cell counts (cells/uL). Performed By: #### 5 7021-8 #### MELISA Galvan ([id number]) [facility] () [address] [place] [address] Neutrophils/100 WBC (Bld) 50.8 % Normal 40.0-80.0 [facility] [place] Comment on above: Performed By: #### 5 7021-8 #### MELISA Galvan ([id number]) [facility] () [address] [place] [address] Nucleated RBC/100 WBC (Bld) [Ratio] 0.0 /100 WBCs Normal 0.0-0.0 [facility] [place] Comment on above: Performed By: #### 5 7021-8 #### MELISA Galvan ([id number]) [facility] () [address] [place] [address] Platelets (Bld) [#/Vol] 222 x10*3/uL Normal 150-450 [facility] [facility] [place] Comment on above: Performed By: #### 5 7021-8 #### MELISA Galvan ([id number]) [facility] () [address] [place] [address] RBC (Bld) [#/Vol] 4.11 x10*6/uL Normal 4.00-5.20 [facility] Comment on above: Performed By: #### 5 7021-8 #### MELISA Galvan ([id number]) [facility] () [address] [place] [address] WBC (Bld) [#/Vol] 5.8 x10*3/uL Normal 4.4-11.3 [facility] Comment on above: Performed By: #### 5 7021-8 #### MELISA Galvan ([id number]) [facility] () [address] [place] [address] Comprehensive metabolic 2000 panelon 01-13-2023 Albumin [Mass/Vol] 4.2 g/dL Normal 3.5-5.0 [facility] Comment on above: Performed By: #### 2 4323-8 #### MELISA Galvan ([id number]) [facility] () [address] [place] [address] ALP (Bld) [Catalytic activity/Vol] 74 U/L Normal 35-125 [facility] [place] Comment on above: Performed By: #### 2 4323-8 #### MELISA Galvan ([id number]) [facility] () [address] [place] [address] ALT [Catalytic activity/Vol] 15 U/L Normal 5-40 [facility] [place] Comment on above: Performed By: #### 2 4323-8 #### MELISA Galvan ([id number]) [facility] () [address] [place] [address] Anion gap [Moles/Vol] 10 mmol/L Normal <=19 [facility] [place] Comment on above: Performed By: #### 2 4323-8 #### MELISA Galvan ([id number]) [facility] () [address] [place] [address] AST [Catalytic activity/Vol] 26 U/L Normal 5-40 [facility] [place] Comment on above: Performed By: #### 2 432-8 #### MELISA Galvan (68056) [facility] () [address] [place] [address] Bilirubin [Mass/Vol] 0.5 mg/dL Normal 0.1-1.2 [facility] [place] Comment on above: Performed By: #### 2 4323-8 #### MELISA Galvan ([id number]) [facility] () [address] [place] [address] Calcium [Mass/Vol] 9.1 mg/dL Normal 8.5-10.4 [facility] Comment on above: Performed By: #### 2 4323-8 #### MELISA Galvan (51837) [facility] () [address] [place] [address] Chloride [Moles/Vol] 103 mmol/L Normal 97-107 [facility] [place] Comment on above: Performed By: #### 2 4323-8 #### MELISA Galvan ([id number]) [facility] () [address] [place] [address] CO2 [Moles/Vol] 23 mmol/L Low 24-31 [facility] Comment on above: Performed By: #### 2 4323-8 #### MELISA Galvan ([id number]) [facility] () [address] [place] [address] Creatinine [Mass/Vol] 0.70 mg/dL Normal 0.40-1.60 [facility] [place] Comment on above: Performed By: #### 2 4323-8 #### MELISA Galvan ([id number]) [facility] () [address] [place] [address] GFR/1.73 sq M.predicted MDRD (S/P/Bld) [Vol rate/Area] mL/min/{1.73_m2} Normal >60 [facility] [place] Comment on above: Result Comment: Calc ulations of estimated GFR are performed using the 2020 CKD-EPI Study Refit equation without the race variable for the IDMS-Traceable creatinine methods. https://jasn.asnjournals.org/content/early//ASN.06996256 88 Performed By: #### 2 4323-8 #### MELISA Galvan ([id number]) [facility] () [address] [place] [address] Glucose [Mass/Vol] 89 mg/dL Normal 65-99 [facility] Comment on above: Performed By: #### 2 4323-8 #### MELISA Galvan ([id number]) [facility] () [address] [place] [address] Potassium [Moles/Vol] 3.5 mmol/L Normal 3.4-5.1 [facility] [place] Comment on above: Performed By: #### 2 4323-8 #### MELISA Galvan ([id number]) [facility] () [address] [place] [address] Protein [Mass/Vol] 6.9 g/dL Normal 5.9-7.9 [facility] Comment on above: Performed By: #### 2 4323-8 #### MELISA Galvan ([id number]) [facility] () [address] [place] [address] Sodium [Moles/Vol] 136 mmol/L Normal 133-145 [facility] Comment on above: Performed By: #### 2 4323-8 #### MELISA Galvan ([id number]) [facility] () [address] [place] [address] Urea nitrogen [Mass/Vol] 13 mg/dL Normal 8-25 [facility] [place] Comment on above: Performed By: #### 2 4323-8 #### MELISA Galvan ([id number]) [facility] () [address] [place] [address] HCG ( test) IA.rapi d Ql (U)on 01-13-2023 HCG ( test) Ql (U) Negative Normal NEGATIVE [facility] [place] Comment on above: Performed By: #### 8 0384-1 #### MELISA Galvan () [facility] () [address] [place] [address] Urinalysis complete panel (U )on 01-13-2023 Appearance (U) Clear Normal Clear [facility] [place] Comment on above: Performed By: #### 2 4356-8 #### MELISA Galvan () [facility] () [address] [place] [address] Bilirubin (U) [Mass/Vol] Negative Normal NEGATIVE [facility] [place] Comment on above: Performed By: #### 2 4356-8 #### MELISA Galvan (43930) [facility] () [address] [place] [address] Color (U) Light-Yellow Normal Light-Yellow, Yellow, Dark-Yellow [facility] [place] Comment on above: Performed By: #### 2 4356-8 #### MELISA Galvan ([id number]) [facility] () [address] [place] [address] Glucose Auto test strip (U) [Mass/Vol] Normal Normal Normal [facility] [place] Comment on above: Performed By: #### 2 4356-8 #### MELISA Galvan ([id number]) [facility] () [address] [place] [address] Ketones (U) [Mass/Vol] Negative Normal NEGATIVE [facility] [place] Comment on above: Performed By: #### 2 4356-8 #### MELISA Galvan (14348) [facility] () [address] [place] [address] Leukocyte esterase Auto test strip Ql (U) Negative Normal NEGATIVE [facility] [place] Comment on above: Performed By: #### 2 4356-8 #### MELISA Galvan (09376) [facility] () [address] [place] [address] Nitrite Auto test strip Ql (U) Negative Normal NEGATIVE [facility] [place] Comment on above: Performed By: #### 2 4356-8 #### MELISA Galvan (08713) [facility] () [address] [place] [address] pH (U) 7.0 [pH] Normal 5.0, 5.5, 6.0, 6.5, 7.0, 7.5, 8.0 [facility] [place] Comment on above: Performed By: #### 2 4356-8 #### MELISA Galvan ([id number]) [facility] () [address] [place] [address] Protein (U) [Mass/Vol] Negative Normal NEGATIVE, 10 (TRACE), 20 (TRACE) [facility] [place] Comment on above: Performed By: #### 2 4356-8 #### MELISA Galvan ([id number]) [facility] () [address] [place] [address] RBC (U) [#/Vol] Negative Normal NEGATIVE [facility] Comment on above: Performed By: #### 2 4356-8 #### MELISA Galvan (24183) [facility] () [address] [place] [address] Specific gravity (U) [Rel density] 1.010 Normal 1.005-1.035 [facility] [place] Comment on above: Performed By: #### 2 4356-8 #### MELISA Galvan (23854) [facility] () [address] [place] [address] Urobilinogen (U) [Mass/Vol] Normal Normal Normal [facility] [place] Comment on above: Performed By: #### 2 4356-8 #### MELISA Galvan ([id number]) [facility] (MW) [address] [facility] [place] [address] CNPNon 01-11-2023 CNPN Normal [facility] CNPNon 01-06-2023 CNPN Normal [facility] Auto Diffon 12-31-2022 Basophils/100 WBC (Bld) 0.6 % Normal 0.0-2.0 [facility] Comment on above: Order Comment: Order Added by Discern Expert. Performed By: #### 2 693174, 9261238, 28549966, 0340481, 2887930, 72228611, 6659970 ####[address] [address] Basophils/Leukocyte s Auto (Bld) [Pure # fraction] 0.0 E9/L Normal 0.0-0.2 [facility] Comment on above: Order Comment: Order Added by Discern Expert. Performed By: #### 2 590423, 9112761, 84104326, 3084863, 5193616, 30641925, 2274745 ####[address] [address] Eosinophils/100 WBC (Bld) 0.4 % Normal 0.0-8.0 [facility] Comment on above: Order Comment: Order Added by Discern Expert. Performed By: #### 2 500918, 4404893, 64827009, 2588874, 4689855, 34045760, 7612587 ####[address] [place] [address] Eosinophils/Leukocy stevan Auto (Bld) [Pure # fraction] 0.0 E9/L Normal 0.0-0.5 [facility] Comment on above: Order Comment: Order Added by Discern Expert. Performed By: #### 2 109954, 7999378, 17638791, 8747151, 2125937, 29828886, 1553237 ####[address] [place] [address] Lymphocytes/100 WBC (Bld) 42.3 % Normal 14.0-50.0 [facility] Comment on above: Order Comment: Order Added by Discern Expert. Performed By: #### 2 839953, 4635944, 24496123, 8177864, 6832462, 57248670, 8530212 ####[address] [address] Lymphocytes/Leukocy stevan Auto (Bld) [Pure # fraction] 1.9 E9/L Normal 1.0-4.0 [facility] Comment on above: Order Comment: Order Added by Discern Expert. Performed By: #### 2 570332, 8521341, 51465361, 3993535, 8101458, 42845981, 1372685 ####[address] [address] Monocytes/100 WBC (Bld) 7.9 % Normal 4.0-14.0 [facility] Comment on above: Order Comment: Order Added by Mariela Expert. Performed By: #### 2 010604, 7389478, 61350195, 0113229, 5818291, 00293760, 0661538 ####[address] [address] Monocytes/Leukocyte s Auto (Bld) [Pure # fraction] 0.4 E9/L Normal 0.2-1.0 [facility] Comment on above: Order Comment: Order Added by Discern Expert. Performed By: #### 2 418706, 1766296, 34270802, 3526235, 5040700, 98619253, 6835131 ####[address] [place] [address] Neutrophils/100 WBC (Bld) 48.8 % Normal 36.0-75.0 [facility] Comment on above: Order Comment: Order Added by Mariela Expert. Performed By: #### 2 219251, 1656635, 46756622, 4278589, 9513142, 28206946, 3528729 ####[facility] [place] [address] Neutrophils/Leukocy stevan Auto (Bld) [Pure # fraction] 2.2 E9/L Normal 2.0-7.5 [facility] Comment on above: Order Comment: Order Added by Discern Expert. Performed By: #### 2 130364, 0218946, 77624856, 2054614, 5648896, 20092983, 8429935 ####[facility] [address] [place] [address] B hCG Qualon 12-31-2022 Beta HCG ( test) Ql Negative Normal [facility] Comment on above: Performed By: #### 2 575438, 3242155, 10415828, 5875917, 4597945, 85981407, 3365144 ####[facility] [address] [place] [address] BMPon 12-31-2022 Creatinine [Mass/Vol] 0.8 mg/dL Normal 0.5-1.3 [facility] Comment on above: Performed By: #### 2 107068, 1318439, 70033541, 7410501, 9848125, 22599408, 0685496 ####[facility] [address] [place] [address] Urea nitrogen [Mass/Vol] 16 mg/dL Normal 5-21 [facility] Comment on above: Performed By: #### 2 086685, 4250378, 07452393, 4957625, 0444989, 79353194, 4878869 ####[facility] [address] [place] [address] Urea nitrogen/Creatinine [Mass ratio] 20 No Units Normal 10-20 [facility] Comment on above: Performed By: #### 2 942157, 0945406, 89840092, 7959682, 9468254, 34941555, 1227460 ####[facility] [address] [place] [address] Anion gap [Moles/Vol] 10 mmol/L Normal 6-16 [facility] Comment on above: Performed By: #### 2 351628, 8355128, 88216667, 0453128, 0176805, 76136058, 9673388 ####[facility] [address] [place] [address] Calcium [Mass/Vol] 8.6 mg/dL Low 8.9-11.1 [facility] Comment on above: Performed By: #### 2 942487, 6713854, 30277899, 5511271, 9413604, 69601747, 8914009 ####[facility] [address] [place] [address] Chloride [Moles/Vol] 110 mmol/L Normal 101-111 [facility] Comment on above: Performed By: #### 2 582303, 9463132, 16700355, 4780761, 2678029, 01293485, 5455220 ####[facility] [address] [place] [address] CO2 [Moles/Vol] 20 mmol/L Low 21-31 [facility] Comment on above: Performed By: #### 2 576480, 2047783, 17435962, 6161666, 3365424, 98947946, 0032415 ####[facility] [address] [place] [address] Glucose [Mass/Vol] 87 mg/dL Normal 55-199 [facility] Comment on above: Result Comment: If t his glucose result represents a fasting glucose, interpretation should refer to the following reference range: 55-99 mg/dL Performed By: #### 2 189357, 1796737, 14074145, 1035966, 7610722, 54337805, 9162896 ####[facility] [address] [place] [address] Potassium [Moles/Vol] 3.2 mmol/L Low 3.5-5.3 [facility] Comment on above: Performed By: #### 2 351467, 4180073, 56365389, 9128363, 4859251, 57196790, 9776910 ####[facility] [address] [place] [address] Sodium [Moles/Vol] 137 mmol/L Normal 135-145 [facility] Comment on above: Performed By: #### 2 785853, 7008572, 80914517, 7857095, 8277804, 08963899, 2455676 ####[facility] [address] [place] [address] CBC w/ Auto Diffon Erythrocyte distribution width (RBC) [Ratio] 13.9 % Normal 10.9-14.2 [facility] Comment on above: Performed By: #### 2 018929, 8237581, 67296349, 9493248, 8192093, 20023189, 9548763 ####[address] [address] Hematocrit (Bld) [Volume fraction] 35.5 % Normal 34.0-46.0 [facility] Comment on above: Performed By: #### 2 450860, 1651718, 60521906, 0201265, 3375633, 50983495, 1229980 ####[address] [address] Hemoglobin (Bld) [Mass/Vol] 12.2 g/dL Normal 12.0-16.0 [facility] Comment on above: Performed By: #### 2 702303, 5976854, 88310682, 1653037, 0141587, 48396093, 3275901 ####[address] [address] MCH (RBC) [Entitic mass] 30.8 pg Normal 27.0-34.0 [facility] Comment on above: Performed By: #### 2 256699, 9674116, 46699689, 9986532, 8109391, 37184633, 3775896 ####[address] [address] MCHC (RBC) [Mass/Vol] 34.4 g/dL Normal 31.4-36.0 [facility] Comment on above: Performed By: #### 2 813030, 3421998, 35360207, 3706210, 6842861, 48332465, 4310123 ####[address] [address] MCV (RBC) [Entitic vol] 89.5 fL Normal 80.0-100.0 [facility] Comment on above: Performed By: #### 2 130502, 1723604, 54299706, 4094955, 8107017, 64961454, 1991890 ####[address] [address] Platelet mean volume (Bld) [Entitic vol] 9.5 fL Normal 6.4-10.8 [facility] Comment on above: Performed By: #### 2 735888, 4316450, 98359259, 5962487, 8219301, 16066735, 3888830 ####[address] [address] Platelets (Bld) [#/Vol] 177.0 E9/L Normal 150.0-500.0 [facility] Comment on above: Performed By: #### 2 039264, 3663227, 25634835, 0550520, 8877665, 92441814, 5131665 ####[address] [address] RBC (Bld) [#/Vol] 4.0 E12/L Low 4.3-5.9 [facility] Comment on above: Performed By: #### 2 397497, 6764512, 14921606, 2442939, 6219098, 72624679, 9349772 ####[address] [address] WBC corrected for nucl RBC Auto (Bld) [#/Vol] 4.4 E9/L Normal 4.0-11.0 [facility] Comment on above: Performed By: #### 2 900239, 0454509, 66566615, 1829229, 1686951, 55378878, 7424773 ####[facility] [address] [place] [address] CHEMISTRYOrdered By: SYSTEM SYSTEM on 12-31-2022 Albumin [...] rate/Area] 100 mL/min/1.73 m2 Normal >=59mL/min/1.73 m2 [facility] Chem S Comment on above: Interpretive Data: C hronic kidney disease could be indicated at eGFR's of less than 60 mL/min/1.73m2. Kidney failure is indicated at less than 15 mL/min/1.73m2. Globulin (S) [Mass/Vol] 2.9 g/dL Normal 1.4 - 4.0 gm/dL [facility] Remisol Glucose [Mass/Vol] 87 mg/dL Normal 55 - 199 mg/dL [facility] Remisol Comment on above: Interpretive Data: I f this glucose result represents a fasting glucose, interpretation should refer to the following reference range: 55-99 mg/dL Lipase [Catalytic activity/Vol] 49 U/L Normal 13 - 58 unit/L [facility] Remisol Potassium [Moles/Vol] 3.2 mmol/L Low 3.5 - 5.3 mmol/L [facility] Remisol Protein [Mass/Vol] 6.8 g/dL Normal 6.0 - 7.8 gm/dL [facility] Remisol Sodium [Moles/Vol] 137 mmol/L Normal 135 - 145 mmol/L [facility] Remisol Urea nitrogen [Mass/Vol] 16 mg/dL Normal 5 - 21 mg/dL [facility] Remisol Urea nitrogen/Creatinine [Mass ratio] 20 mg/mg Normal 10 - 20 [facility] Remisol Consent for Treatmenton 12-16 Consent for Treatment [id number]#[id number] Normal [facility] Discharge Instructionson Discharge Instructions [id number] 93#1.00TIFF Normal [facility] ED Clinical Summaryon 2022 ED Clinical Summary Normal [facility] ED Note-Physicianon 01-01-20 ED Note-Physician Normal [facility] Comment on above: Result Comment: Elec tronically Signed By: Lonnie Rios PA-C\.br\Date and Time Signed: 12/31/22 19:15 EST\.br\Electronically Co-Signed By: Mateusz Garcia DO\.br\Date and Time Co-Signed: 12/31/22 19:25 EST ED Patient Education Noteon 12-31-2022 ED Patient Education Note Normal [facility] ED Patient Summaryon 023 ED Patient Summary Normal [facility] HEMATOLOGYOrdered By: SYSTEM SYSTEM on 12-31-2022 [...] 9.5 fL Normal 6.4 - 10.8 fL [facility] HemeAutoSS Platelets (Bld) [#/Vol] 177.0 E9/L Normal 150.0 - 500.0 E9/L [facility] HemeAutoSS RBC (Bld) [#/Vol] 4.0 E12/L Low 4.3 - 5.9 E12/L [facility] HemeAutoSS WBC corrected for nucl RBC Auto (Bld) [#/Vol] 4.4 E9/L Normal 4.0 - 11.0 E9/L [facility] HemeAutoSS Hep Func Panelon 12-31-2022 Albumin [Mass/Vol] 3.9 g/dL Normal 3.3-5.0 [facility] Comment on above: Performed By: #### 2 346413, 6971360, 54975967, 3150841, 3233695, 13323066, 1847559 ####[facility] [address] [place] [address] Albumin/Globulin (S) [Mass conc ratio] 1.3 Normal 1.1-2.2 [facility] Comment on above: Performed By: #### 2 701119, 1947986, 02620128, 5995493, 9329706, 67251071, 2417668 ####[facility] [address] [place] [address] ALP [Catalytic activity/Vol] 51 Int._Unit/L Normal 21-98 [facility] Comment on above: Performed By: #### 2 889262, 6173435, 09389557, 0093793, 7237299, 80522904, 9026234 ####[facility] [address] [place] [address] ALT No additional P-5'-P [Catalytic activity/Vol] 21 Int._Unit/L Normal 6-46 [facility] Comment on above: Performed By: #### 2 874458, 0048048, 10634193, 9167544, 8928310, 09730429, 7020447 ####[facility] [address] [place] [address] AST [Catalytic activity/Vol] 32 Int._Unit/L Normal 5-43 [facility] Comment on above: Performed By: #### 2 879494, 7479698, 05281716, 1493039, 7248640, 51785323, 9279190 ####[facility] [address] [place] [address] Bilirubin [Mass/Vol] 0.5 mg/dL Normal 0.0-1.1 [facility] Comment on above: Performed By: #### 2 671367, 8310610, 81747866, 2763054, 3013408, 63888079, 6917311 ####[address] [address] Bilirubin.direct [Mass/Vol] 0.1 mg/dL Normal 0.1-0.4 [facility] Comment on above: Performed By: #### 2 561420, 9488062, 68163278, 4865809, 7833502, 10229742, 4379449 ####[facility] [address] [place] [address] Bilirubin.indirect [Mass or moles/Vol] 0.4 mg/dL Normal 0.1-0.9 [facility] Comment on above: Performed By: #### 2 745311, 6201790, 60956058, 3605041, 7695992, 46778946, 9800769 ####[facility] [address] [place] [address] Globulin (S) [Mass/Vol] 2.9 g/dL Normal 1.4-4.0 [facility] Comment on above: Performed By: #### 2 707409, 7668938, 77841044, 6098502, 5673702, 42463629, 4480919 ####[facility] [address] [place] [address] Protein [Mass/Vol] 6.8 g/dL Normal 6.0-7.8 [facility] Comment on above: Performed By: #### 2 441593, 0649957, 57941959, 0639448, 9081283, 09980189, 1226186 ####[facility] [address] [place] [address] Lipase Levelon 12-31-2022 Lipase [Catalytic activity/Vol] 49 U/L Normal 13-58 [facility] Comment on above: Performed By: #### 2 000778, 7584255, 14048888, 7207431, 5391809, 50447988, 1519221 ####[facility] [address] [place] [address] SEROLOGYOrdered By: Stacia Blair on 12-31-2022 Beta HCG ( test) Ql Negative (12/31/22 1:16 PM) Normal [facility] Man Sero UA With Cult Reflexon 2022 Bilirubin Ql (U) Negative Normal Negative [facility] Comment on above: Performed By: #### 1 7815729 ####[address] [address] Clarity (U) CLEAR Normal Clear [facility] Comment on above: Performed By: #### 1 0111576 ####[address] [address] Color (U) YELLOW Normal Yellow [facility] Comment on above: Performed By: #### 1 2898342 ####[address] [address] Epithelial cells.squamous LM.HPF (Urine sed) [#/Area] 0-2 Normal 0-2 [facility] Comment on above: Performed By: #### 1 2648091 ####[facility] [address] [place] [address] Glucose Test strip (U) [Mass/Vol] Negative Normal Negative [facility] Comment on above: Performed By: #### 1 5107498 ####[facility] [address] [place] [address] Hemoglobin Ql (U) Negative Normal Negative [facility] Comment on above: Performed By: #### 1 9396393 ####[place] [address] [address] Ketones (U) [Mass/Vol] Negative Normal Negative [facility] Comment on above: Performed By: #### 1 3400166 ####[address] [address] [place].plasma/Lith ium.RBC (Bld) [Mass ratio] 0-3 Normal 0-3 [facility] Comment on above: Performed By: #### 1 6920223 ####[address] [address] Mucus Ql (Urine sed) TRACE Normal [facility] Comment on above: Performed By: #### 1 7120451 ####[address] [address] Nitrite Ql (U) Negative Normal Negative [facility] Comment on above: Performed By: #### 1 3715322 ####[address] [address] pH (U) 6.0 [pH] Invalid Interpretation Code 5.0-9.0 [facility] Comment on above: Performed By: #### 1 1451724 ####[address] [address] Protein (U) [Mass/Vol] Negative Normal Negative [facility] Comment on above: Performed By: #### 1 [id number] ####[address] [address] Specific gravity (U) [Rel density] 1.015 Invalid Interpretation Code 1.005-1.030 [facility] Comment on above: Performed By: #### 1 [id number] ####[address] [address] Type of Urine collection method Clean Catch Normal [facility] Comment on above: Performed By: #### 1 [id number] ####[address] [address] Urobilinogen Qn (U) 0.2 {Munir'U}/dL Normal 0.0-1.0 [facility] Comment on above: Performed By: #### 1 [id number] ####[facility] [address] [place] [address] WBC Auto Ql (U) Negative Normal Negative [facility] Comment on above: Performed By: #### 1 [id number] ####[facility] [address] [place] [address] WBC LM.HPF (Urine sed) [#/Area] 0-5 Normal 0-5 [facility] Comment on above: Performed By: #### 1 [id number] ####[facility] [address] [place] [address] URINALYSISOrdered By: Marlene Blair on 12-31-2022 Bilirubin [...] PM) Normal Negative [facility] UA Auto SS [place].plasma/Lith ium.RBC (Bld) [Mass ratio] 0-3 /HPF Normal [...] PM) Invalid Interpretation Code 1.005 - 1.030 [facility] UA Auto SS UA Spec Desc Clean Catch (12/31/22 1:16 PM) Normal [facility] UA Auto SS Urobilinogen Qn (U) 0.1030176 {Munir'U}/dL Normal 0.0 - 1.0 EU/dL [facility] UA Auto SS WBC Auto Ql (U) Negative (12/31/22 1:16 PM) Normal Negative [facility] UA Auto SS WBC LM.HPF (Urine sed) [#/Area] 0-5 /HPF Normal 0-5/HPF [facility] UA Auto SS eGFRon 12-31-2022 GFR/1.73 sq M.predicted among non-blacks MDRD (S/P/Bld) [Vol rate/Area] 100 mL/min/1.73 m2 Normal >=59 [facility] Comment on above: Order Comment: Order added by Discern Expert. Result Comment: Stylist Apprentice alejandra kidney disease could be indicated at eGFR's of less than 60 mL/min/1.73m2. Kidney failure is indicated at less than 15 mL/min/1.73m2. Performed By: #### 2 [id number], [id number], [id number], [id number], [id number], [id number], [id number] ####[facility] [address] [place] [address] Family Medicine Office/Clini c Noteon 12-29-2022 [facility] Medicine Office/Clinic Note Normal [facility] Comment on above: Result Comment: Elec tronically Signed By: Jaquan Paula\.br\Date and Time Signed: 12/29/22 15:35 EST Provider Letteron 12-29-2022 Provider Letter Normal [facility] CNCOon 12-28-2022 CNCO Letter Text Normal [facility] CNPNon 12-28-2022 CNPN Normal [facility] CNCOon 12-25-2022 CNCO Letter Text Normal [facility] CNPNon 12-23-2022 CNPN Normal [facility] CBC With Platelet and Differ entialon 12-14-2022 Basophils (Bld) [#/Vol] 0.0 10*3/uL Normal 0.0-0.[address] [facility] Comment on above: Performed By: #### L IPAS #### [facility] [address] [place] [address] Basophils/100 WBC (Bld) 0.9 % Normal [facility] Comment on above: Performed By: #### L IPAS #### [facility] [address] [place] [address] Eosinophils (Bld) [#/Vol] 0.2 10*3/uL Normal 0.0-0.7 [facility] Comment on above: Performed By: #### L IPAS #### [facility] [address] [place] [address] Eosinophils/100 WBC (Bld) 4.0 % Normal [facility] Comment on above: Performed By: #### L IPAS #### [facility] [address] [place] [address] Erythrocyte distribution width (RBC) [Ratio] 13.2 % Normal 11.5-14.5 [facility] Comment on above: Performed By: #### L IPAS #### [facility] [address] [place] [address] Hematocrit (Bld) [Volume fraction] 36.5 % Low 37.0-47.0 [facility] Comment on above: Performed By: #### L IPAS #### [facility] [address] [place] [address] Hemoglobin (Bld) [Mass/Vol] 12.4 g/dL Normal 12.0-16.[address] [facility] Comment on above: Performed By: #### L IPAS #### [facility] [address] [place] [address] Lymphocytes (Bld) [#/Vol] 1.7 10*3/uL Normal 1.0-4.[address] [facility] Comment on above: Performed By: #### L IPAS #### [facility] [address] [place] [address] Lymphocytes/100 WBC (Bld) 40.7 % Normal [facility] Comment on above: Performed By: #### L IPAS #### [facility] [address] [place] [address] MCH (RBC) [Entitic mass] 31.0 pg Normal 27.0-31.3 [facility] Comment on above: Performed By: #### L IPAS #### [facility] [address] [place] [address] MCHC 34.0 % Normal 33.0-37.0 [facility] Comment on above: Performed By: #### L IPAS #### [facility] [address] [place] [address] MCV (RBC) [Entitic vol] 91.3 fL Normal 79.4-94.8 [facility] Comment on above: Performed By: #### L IPAS #### [facility] [address] [place] [address] Monocytes (Bld) [#/Vol] 0.3 10*3/uL Normal 0.2-0.[address] [facility] Comment on above: Performed By: #### L IPAS #### [facility] [address] [place] [address] Monocytes/100 WBC (Bld) 7.7 % Normal [facility] Comment on above: Performed By: #### L IPAS #### [facility] [address] [place] [address] Neutrophils (Bld) [#/Vol] 2.0 10*3/uL Normal 1.4-6.5 [facility] Comment on above: Performed By: #### L IPAS #### [facility] [address] [place] [address] Neutrophils/100 WBC (Bld) 46.5 % Normal [facility] Comment on above: Performed By: #### L IPAS #### [facility] [address] [place] [address] Platelets (Bld) [#/Vol] 187 10*3/uL Normal 130-400 [facility] Comment on above: Performed By: #### L IPAS #### [facility] [address] [place] [address] RBC (Bld) [#/Vol] 4.00 10*6/uL Low 4.20-5.40 [facility] Comment on above: Performed By: #### L IPAS #### [facility] [address] [place] [address] WBC (Bld) [#/Vol] 4.3 10*3/uL Low 4.8-10.8 [facility] Comment on above: Performed By: #### L IPAS #### [facility] [address] [place] [address] CTA ABDOMEN PELVIS W WO CONT RASTon [...] Addison Lorenzo MD 12/14/22 Final result Normal [facility] Comprehensive Metabolic Pane nestor 12-14-2022 Albumin [Mass/Vol] 4.0 g/dL Normal 3.5-4.[address] [facility] Comment on above: Performed By: #### L IPAS #### [facility] [address] [place] [address] ALP [Catalytic activity/Vol] 70 U/L Normal 40-130 [facility] Comment on above: Performed By: #### L IPAS #### [facility] [address] [place] [address] ALT [Catalytic activity/Vol] 20 U/L Normal 0-33 [facility] Comment on above: Performed By: #### L IPAS #### [facility] [address] [place] [address] Anion gap [Moles/Vol] 16 mmol/L Critically high 9-15 [facility] Comment on above: Performed By: #### L IPAS #### [facility] [address] [place] [address] AST [Catalytic activity/Vol] 33 U/L Normal 0-35 [facility] Comment on above: Performed By: #### L IPAS #### [facility] [address] [place] [address] Bilirubin [Mass/Vol] 0.3 mg/dL Normal 0.2-0.7 [facility] Comment on above: Performed By: #### L IPAS #### [facility] [address] [place] [address] Calcium [Mass/Vol] 8.8 mg/dL Normal 8.5-9.[address] [facility] Comment on above: Performed By: #### L IPAS #### [facility] [address] [place] [address] Chloride [Moles/Vol] 107 mmol/L Normal 95-107 [facility] Comment on above: Performed By: #### L IPAS #### [facility] [address] [place] [address] CO2 [Moles/Vol] 20 mmol/L Normal 20-31 [facility] Comment on above: Performed By: #### L IPAS #### [facility] [address] [place] [address] Creatinine [Mass/Vol] 0.75 mg/dL Normal 0.50-0.90 [facility] Comment on above: Performed By: #### L IPAS #### [facility] [address] [place] [address] GFR >60.0 Normal >60 [facility] Comment on above: Result Comment: [...] secretion. Performed By: #### L IPAS #### [facility] [address] [place] [address] Globulin (S) [Mass/Vol] 2.5 g/dL Normal 2.3-3.[address] [facility] Comment on above: Performed By: #### L IPAS #### [facility] [address] [place] [address] Glucose [Mass/Vol] 88 mg/dL Normal 70-99 [facility] Comment on above: Performed By: #### L IPAS #### [facility] [address] [place] [address] Potassium [Moles/Vol] 3.8 mmol/L Normal 3.4-4.[address] [facility] Comment on above: Performed By: #### L IPAS #### [facility] [address] [place] [address] Protein [Mass/Vol] 6.5 g/dL Normal 6.3-8.[address] [facility] Comment on above: Performed By: #### L IPAS #### [facility] [address] [place] [address] Sodium [Moles/Vol] 143 mmol/L Normal 135-144 [facility] Comment on above: Performed By: #### L IPAS #### [facility] [address] [place] [address] Urea nitrogen [Mass/Vol] 11 mg/dL Normal 6-20 [facility] Comment on above: Performed By: #### L IPAS #### [facility] [address] [place] [address] Lipaseon 12-14-2022 Lipase [Catalytic activity/Vol] 39 U/L Normal 12-95 [facility] Comment on above: Performed By: #### L IPAS #### [facility] [address] [place] [address] POCT Venouson 12-14-2022 Creatinine [Mass/Vol] 0.8 mg/dL Normal 0.6-1.[address] [facility] Comment on above: Performed By: #### P GLU #### [facility] [address] [place] [address] GFR >60 Normal >60 [facility] Comment on above: Result Comment: [...] secretion. Performed By: #### P GLU #### [facility] [address] [place] [address] POC Performed on SEE BELOW Normal [facility] Comment on above: Result Comment: Perf ormed on POC Performed By: #### P GLU #### [facility] [address] [place] [address] POC Sample Type KIRA Normal [facility] Comment on above: Performed By: #### P GLU #### [facility] [address] [place] [address] CNCOon 12-10-2022 CNCO Letter Text Normal [facility] ALLIED HEALTHon 12-09-2022 ALLIED HEALTH Normal [facility] CASE MANAGEMon 12-09-2022 CASE MANAGEM Normal [facility] CBC panel Auto (Bld)on 12-09 Erythrocyte distribution width (RBC) [Ratio] 13.5 % Normal 11.5-15.0 [facility] Comment on above: Order Comment: Speci men Type: BLOOD SPECIMENOrdering Facility: [facility] Address: [address] [place] [address] Performed By: #### 5 8410-2 ####[facility] [id number] [place] [address] [place] Hematocrit (Bld) [Volume fraction] 34.9 % Low 36.0-46.0 [facility] Comment on above: Order Comment: Speci men Type: BLOOD SPECIMENOrdering Facility: [facility] Address: [address] [place] [address] Performed By: #### 5 8410-2 ####[facility] [id number] [place] [address] [place] Hemoglobin (Bld) [Mass/Vol] 11.7 g/dL Normal 11.5-15.5 [facility] Comment on above: Order Comment: Speci men Type: BLOOD SPECIMENOrdering Facility: [facility] Address: [address] [place] [address] Performed By: #### 5 8410-2 ####[facility] [id number] [place] [address] [place] MCH (RBC) [Entitic mass] 31.0 pg Normal 26.0-34.0 [facility] Comment on above: Order Comment: Speci men Type: BLOOD SPECIMENOrdering Facility: [facility] Address: [address] [place] [address] Performed By: #### 5 8410-2 ####[facility] [id number] [place] [address] [place] MCHC (RBC) [Mass/Vol] 33.5 g/dL Normal 30.5-36.0 [facility] Comment on above: Order Comment: Speci men Type: BLOOD SPECIMENOrdering Facility: [facility] Address: [address] [place] [address] Performed By: #### 5 8410-2 ####[facility] [id number] [place] [address] [place] MCV (RBC) [Entitic vol] 92.3 fL Normal 80.0-100.0 [facility] Comment on above: Order Comment: Speci men Type: BLOOD SPECIMENOrdering Facility: [facility] Address: [address] [place] [address] Performed By: #### 5 8410-2 ####[facility] [id number] [place] [address] [place] Nucleated RBC (Bld) [#/Vol] 10*3/uL Normal <0.01 [facility] Comment on above: Order Comment: Speci men Type: BLOOD SPECIMENOrdering Facility: [facility] Address: [address] [place] [address] Performed By: #### 5 8410-2 ####[facility] [id number] [place] [address] [place] Platelet mean volume (Bld) [Entitic vol] 12.6 fL Normal 9.0-12.7 [facility] Comment on above: Order Comment: Speci men Type: BLOOD SPECIMENOrdering Facility: [facility] Address: [address] [place] [address] Performed By: #### 5 8410-2 ####[facility] [id number] [place] [address] [place] Platelets (Bld) [#/Vol] 172 10*3/uL Normal 150-400 [facility] Comment on above: Order Comment: Speci men Type: BLOOD SPECIMENOrdering Facility: [facility] Address: [address] [place] [address] Performed By: #### 5 8410-2 ####[facility] [id number] [place] [address] [place] RBC (Bld) [#/Vol] 3.78 10*6/uL Low 3.90-5.20 [facility] Comment on above: Order Comment: Speci men Type: BLOOD SPECIMENOrdering Facility: [facility] Address: [address] [place] [address] Performed By: #### 5 8410-2 ####[facility] [id number] [place] [address] [place] WBC (Bld) [#/Vol] 3.25 10*3/uL Low 3.70-11.00 [facility] Comment on above: Order Comment: Speci men Type: BLOOD SPECIMENOrdering Facility: [facility] Address: [address] [place] [address] Performed By: #### 5 8410-2 ####[facility] [id number] [place] [address] [place] CNDSon 12-09-2022 CNDS Normal [facility] CNPNon 12-09-2022 CNPN Normal [facility] CONSULT PROGon 12-09-2022 CONSULT PROG Normal [facility] Comprehensive metabolic 2000 panelon 12-09-2022 Albumin [Mass/Vol] 3.6 g/dL Low 3.9-4.9 [facility] Comment on above: Order Comment: Speci men Type: BLOOD SPECIMENOrdering Facility: [facility] Address: [address] [place] [address] Performed By: #### 2 777-1, , ####[facility] [id number] [address] [address] [place] ALP [Catalytic activity/Vol] 59 U/L Normal 34-123 [facility] Comment on above: Order Comment: Speci men Type: BLOOD SPECIMENOrdering Facility: [facility] Address: [address] [place] [address] Performed By: #### 2 777-1, , ####[facility] [id number] [address] [address] [place] ALT [Catalytic activity/Vol] 13 U/L Normal 7-38 [facility] Comment on above: Order Comment: Speci men Type: BLOOD SPECIMENOrdering Facility: [facility] Address: [address] [place] [address] Performed By: #### 2 777-1, , ####[facility] [id number] [address] [address] [place] Anion gap [Moles/Vol] 9 mmol/L Normal 9-18 [facility] Comment on above: Order Comment: Speci men Type: BLOOD SPECIMENOrdering Facility: [facility] Address: [address] [place] [address] Performed By: #### 2 777-1, , ####[facility] [id number] [place] [address] [place] AST [Catalytic activity/Vol] 22 U/L Normal 13-35 [facility] Comment on above: Order Comment: Speci men Type: BLOOD SPECIMENOrdering Facility: [facility] Address: [address] [place] [address] Performed By: #### 2 777-1, , ####[facility] [id number] [place] [address] [place] Bilirubin [Mass/Vol] 0.2 mg/dL Normal 0.2-1.3 [facility] Comment on above: Order Comment: Speci men Type: BLOOD SPECIMENOrdering Facility: [facility] Address: [address] [place] [address] Performed By: #### 2 777-1, , ####[facility] [id number] [place] [address] [place] Calcium [Mass/Vol] 8.7 mg/dL Normal 8.5-10.2 [facility] Comment on above: Order Comment: Speci men Type: BLOOD SPECIMENOrdering Facility: [facility] Address: [address] [place] [address] Performed By: #### 2 777-1, , ####[facility] [id number] [place] [address] [place] Chloride [Moles/Vol] 108 mmol/L High 97-105 [facility] Comment on above: Order Comment: Speci men Type: BLOOD SPECIMENOrdering Facility: [facility] Address: [address] [place] [address] Performed By: #### 2 777-1, , ####[facility] [id number] [place] [address] [place] CO2 [Moles/Vol] 23 mmol/L Normal 22-30 [facility] Comment on above: Order Comment: Speci men Type: BLOOD SPECIMENOrdering Facility: [facility] Address: [address] [place] [address] Performed By: #### 2 777-1, , ####[facility] [id number] [place] [address] [place] Creatinine [Mass/Vol] 0.61 mg/dL Normal 0.58-0.96 [facility] Comment on above: Order Comment: Speci men Type: BLOOD SPECIMENOrdering Facility: [facility] Address: [address] [place] [address] Performed By: #### 2 777-1, , ####[facility] [id number] [place] [address] [place] Creatinine and Glomerular filtration rate.predicted panel (S/P/Bld) 121 mL/min/1.73m??? Normal >=60 [facility] Comment on above: Order Comment: Speci men Type: BLOOD SPECIMENOrdering Facility: [facility] Address: [address] [place] [address] Result Comment: Jessica mated Glomerular Filtration Rate [...] GFR. Performed By: #### 2 777-1, , ####[facility] [id number] [place] [address] [place] Glucose [Mass/Vol] 79 mg/dL Normal 74-99 [facility] Comment on above: Order Comment: Speci men Type: BLOOD SPECIMENOrdering Facility: [facility] Address: [address] [place] [address] Result Comment: The [place] [employer] (ADA) provides guidance for cutoff [...] Standards of Medical Care in Diabetes 2016, [place] [employer]. Diabetes Care. 2016.39(Suppl 1). Performed By: #### 2 777-1, , ####[facility] [id number] [place] [address] [place] Potassium [Moles/Vol] 4.2 mmol/L Normal 3.7-5.1 [facility] Comment on above: Order Comment: Speci men Type: BLOOD SPECIMENOrdering Facility: [facility] Address: [address] [place] [address] Performed By: #### 2 777-1, , ####[facility] [id number] [place] [address] [place] Protein [Mass/Vol] 5.8 g/dL Low 6.3-8.0 [facility] Comment on above: Order Comment: Speci men Type: BLOOD SPECIMENOrdering Facility: [facility] Address: [address] [place] [address] Performed By: #### 2 777-1, , ####[facility] [id number] [place] [address] [place] Sodium [Moles/Vol] 140 mmol/L Normal 136-144 [facility] Comment on above: Order Comment: Speci men Type: BLOOD SPECIMENOrdering Facility: [facility] Address: [address] [place] [address] Performed By: #### 2 777-1, , ####[facility] [id number] [place] [address] [place] Urea nitrogen [Mass/Vol] 16 mg/dL Normal 7-21 [facility] Comment on above: Order Comment: Speci men Type: BLOOD SPECIMENOrdering Facility: [facility] Address: [address] [place] [address] Performed By: #### 2 777-1, , ####[facility] [id number] [place] [address] [place] Magnesium SerPl-mCncon 12-09 Magnesium [Mass/Vol] 2.0 mg/dL Normal 1.7-2.3 [facility] Comment on above: Order Comment: Speci men Type: BLOOD SPECIMENOrdering Facility: [facility] Address: [address] [place] [address] Performed By: #### 2 777-1, , ####[facility] [id number] [place] [address] [place] NURSING PROGon 12-09-2022 NURSING PROG Normal [facility] PT EDon 12-09-2022 PT ED Normal [facility] Phosphate SerPl-mCncon 12-09 Phosphate [Mass/Vol] 1.8 mg/dL Low 2.7-4.8 [facility] Comment on above: Order Comment: Speci men Type: BLOOD SPECIMENOrdering Facility: [facility] Address: [address] [place] [address] Result Comment: Resu lt rechecked. Performed By: #### 2 777-1, , ####[facility] [id number] [place] [address] [place] ALLIED HEALTHon 12-08-2022 ALLIED HEALTH Normal [facility] CBC panel Auto (Bld)on 12-08 Erythrocyte distribution width (RBC) [Ratio] 13.4 % Normal 11.5-15.0 [facility] Comment on above: Order Comment: Speci men Type: BLOOD SPECIMENOrdering Facility: [facility] Address: [address] [place] [address] Performed By: #### 5 8410-2 ####[facility] [id number] [place] [address] [place] Hematocrit (Bld) [Volume fraction] 32.5 % Low 36.0-46.0 [facility] Comment on above: Order Comment: Speci men Type: BLOOD SPECIMENOrdering Facility: [facility] Address: [address] [place] [address] Performed By: #### 5 8410-2 ####[facility] [id number] [address] [place] Hemoglobin (Bld) [Mass/Vol] 11.1 g/dL Low 11.5-15.5 [facility] Comment on above: Order Comment: Speci men Type: BLOOD SPECIMENOrdering Facility: [facility] Address: [address] [place] [address] Performed By: #### 5 8410-2 ####[facility] [id number] [place] [address] [place] MCH (RBC) [Entitic mass] 31.2 pg Normal 26.0-34.0 [facility] Comment on above: Order Comment: Speci men Type: BLOOD SPECIMENOrdering Facility: [facility] Address: [address] [place] [address] Performed By: #### 5 8410-2 ####[facility] [id number] [place] [address] [place] MCHC (RBC) [Mass/Vol] 34.2 g/dL Normal 30.5-36.0 [facility] Comment on above: Order Comment: Speci men Type: BLOOD SPECIMENOrdering Facility: [facility] Address: [address] [place] [address] Performed By: #### 5 8410-2 ####[facility] [id number] [place] [address] [place] MCV (RBC) [Entitic vol] 91.3 fL Normal 80.0-100.0 [facility] Comment on above: Order Comment: Speci men Type: BLOOD SPECIMENOrdering Facility: [facility] Address: [address] [place] [address] Performed By: #### 5 8410-2 ####[facility] [id number] [place] [address] [place] Nucleated RBC (Bld) [#/Vol] 10*3/uL Normal <0.01 [facility] Comment on above: Order Comment: Speci men Type: BLOOD SPECIMENOrdering Facility: [facility] Address: [address] [place] [address] Performed By: #### 5 8410-2 ####[facility] [id number] [place] [address] [place] Platelet mean volume (Bld) [Entitic vol] 12.4 fL Normal 9.0-12.7 [facility] Comment on above: Order Comment: Speci men Type: BLOOD SPECIMENOrdering Facility: [facility] Address: [address] [place] [address] Performed By: #### 5 8410-2 ####[facility] [id number] [place] [address] [place] Platelets (Bld) [#/Vol] 161 10*3/uL Normal 150-400 [facility] Comment on above: Order Comment: Speci men Type: BLOOD SPECIMENOrdering Facility: [facility] Address: [address] [place] [address] Performed By: #### 5 8410-2 ####[facility] [id number] [place] [address] [place] RBC (Bld) [#/Vol] 3.56 10*6/uL Low 3.90-5.20 [facility] Comment on above: Order Comment: Speci men Type: BLOOD SPECIMENOrdering Facility: [facility] Address: [address] [place] [address] Performed By: #### 5 8410-2 ####[facility] [id number] [place] [address] [place] WBC (Bld) [#/Vol] 2.94 10*3/uL Low 3.70-11.00 [facility] Comment on above: Order Comment: Speci men Type: BLOOD SPECIMENOrdering Facility: [facility] Address: [address] [place] [address] Performed By: #### 5 8410-2 ####[facility] [id number] [place] [address] [place] CNPNon 12-08-2022 CNPN Normal [facility] CONSULT PROGon 12-08-2022 CONSULT PROG Normal [facility] Comprehensive metabolic 2000 panelon 12-08-2022 Albumin [Mass/Vol] 3.1 g/dL Low 3.9-4.9 [facility] Comment on above: Order Comment: Speci men Type: BLOOD SPECIMENOrdering Facility: [facility] Address: [address] [place] [address] Performed By: #### 2 4323-8, 2777-1, 68173-0 ####[facility] [id number] [place] [address] [place] ALP [Catalytic activity/Vol] 57 U/L Normal 34-123 [facility] Comment on above: Order Comment: Speci men Type: BLOOD SPECIMENOrdering Facility: [facility] Address: [address] [place] [address] Performed By: #### 2 4323-8, 27708-15, ####[facility] [id number] [place] [address] [place] ALT [Catalytic activity/Vol] 16 U/L Normal 7-38 [facility] Comment on above: Order Comment: Speci men Type: BLOOD SPECIMENOrdering Facility: [facility] Address: [address] [place] [address] Performed By: #### 2 4323-8, 2776-02, ####[facility] [id number] [place] [address] [place] Anion gap [Moles/Vol] 9 mmol/L Normal 9-18 [facility] Comment on above: Order Comment: Speci men Type: BLOOD SPECIMENOrdering Facility: [facility] Address: [address] [place] [address] Performed By: #### 2 4323-8, 2776-02, ####[facility] [id number] [place] [address] [place] AST [Catalytic activity/Vol] 26 U/L Normal 13-35 [facility] Comment on above: Order Comment: Speci men Type: BLOOD SPECIMENOrdering Facility: [facility] Address: [address] [place] [address] Performed By: #### 2 4323-8, 2776-02, ####[facility] [id number] [place] [address] [place] Bilirubin [Mass/Vol] 0.2 mg/dL Normal 0.2-1.3 [facility] Comment on above: Order Comment: Speci men Type: BLOOD SPECIMENOrdering Facility: [facility] Address: [address] [place] [address] Performed By: #### 2 4323-8, 2776-02, ####[facility] [id number] [facility] [address] [address] [place] Calcium [Mass/Vol] 8.2 mg/dL Low 8.5-10.2 [facility] Comment on above: Order Comment: Speci men Type: BLOOD SPECIMENOrdering Facility: [facility] Address: [address] [place] [address] Performed By: #### 2 4323-8, 2776-02, ####[facility] [id number] [address] [address] [place] Chloride [Moles/Vol] 109 mmol/L High 97-105 [facility] Comment on above: Order Comment: Speci men Type: BLOOD SPECIMENOrdering Facility: [facility] Address: [address] [place] [address] Performed By: #### 2 4323-8, 2776-02, ####[facility] [id number] [address] [address] [place] CO2 [Moles/Vol] 23 mmol/L Normal 22-30 [facility] Comment on above: Order Comment: Speci men Type: BLOOD SPECIMENOrdering Facility: [facility] Address: [address] [place] [address] Performed By: #### 2 4323-8, 2776-02, ####[facility] [id number] [facility] [address] [address] [place] Creatinine [Mass/Vol] 0.73 mg/dL Normal 0.58-0.96 [facility] Comment on above: Order Comment: Speci men Type: BLOOD SPECIMENOrdering Facility: [facility] Address: [address] [place] [id number] Performed By: #### 2 4323-8, 27708-15, ####[facility] [id number] [place] [address] [place] Creatinine and Glomerular filtration rate.predicted panel (S/P/Bld) 112 mL/min/1.73m??? Normal >=60 [facility] Comment on above: Order Comment: Geraldo marrero Type: BLOOD SPECIMENOrdering Facility: [facility] Address: [address] [place] [address] Result Comment: Jessica mated Glomerular Filtration Rate [...] GFR. Performed By: #### 2 4323-8, 2777-, ####[facility] [id number] [place] [address] [place] Glucose [Mass/Vol] 119 mg/dL High 74-99 [facility] Comment on above: Order Comment: Geraldo marrero Type: BLOOD SPECIMENOrdering Facility: [facility] Address: [address] [place] [address] Result Comment: The [place] [employer] (ADA) provides guidance for cutoff [...] Standards of Medical Care in Diabetes 2016, [place] [employer]. Diabetes Care. 2016.39(Suppl 1). Performed By: #### 2 4323-8, 2777-1, 66119-9 ####[facility] [id number] [place] [address] [place] Potassium [Moles/Vol] 3.5 mmol/L Low 3.7-5.1 [facility] Comment on above: Order Comment: Speci men Type: BLOOD SPECIMENOrdering Facility: [facility] Address: [address] [place] [address] Performed By: #### 2 4323-8, 2776-02, ####[facility] [id number] [place] [address] [place] Protein [Mass/Vol] 5.2 g/dL Low 6.3-8.0 [facility] Comment on above: Order Comment: Speci men Type: BLOOD SPECIMENOrdering Facility: [facility] Address: [address] [place] [address] Performed By: #### 2 4323-8, 2776-02, ####[facility] [id number] [place] [address] [place] Sodium [Moles/Vol] 141 mmol/L Normal 136-144 [facility] Comment on above: Order Comment: Speci men Type: BLOOD SPECIMENOrdering Facility: [facility] Address: [address] [place] [address] Performed By: #### 2 4323-8, 2776-02, ####[facility] [id number] [place] [address] [place] Urea nitrogen [Mass/Vol] 10 mg/dL Normal 7-21 [facility] Comment on above: Order Comment: Speci men Type: BLOOD SPECIMENOrdering Facility: [facility] Address: [address] [place] [address] Performed By: #### 2 4323-8, 2776-02, ####[facility] [id number] [place] [address] [place] Magnesium SerPl-ncon 12-08 Magnesium [Mass/Vol] 2.1 mg/dL Normal 1.7-2.3 [facility] Comment on above: Order Comment: Speci men Type: BLOOD SPECIMENOrdering Facility: [facility] Address: [address] [place] [address] Performed By: #### 2 4323-8, 2777-1, ####[facility] [id number] [place] [address] [place] Phosphate SerPl-mCncon 12-08 Phosphate [Mass/Vol] 4.7 mg/dL Normal 2.7-4.8 [facility] Comment on above: Order Comment: Speci men Type: BLOOD SPECIMENOrdering Facility: [facility] Address: [address] [place] [address] Performed By: #### 2 4323-8, 27708-15, ####[facility] [id number] [place] [address] [place] CBC panel Auto (Bld)on 12-07 Erythrocyte distribution width (RBC) [Ratio] 13.2 % Normal 11.5-15.0 [facility] Comment on above: Order Comment: Speci men Type: BLOOD SPECIMENOrdering Facility: [facility] Address: [address] [place] [address] Performed By: #### 5 8410-2 ####[facility] [id number] [place] [address] [place] Hematocrit (Bld) [Volume fraction] 33.9 % Low 36.0-46.0 [facility] Comment on above: Order Comment: Speci men Type: BLOOD SPECIMENOrdering Facility: [facility] Address: [address] [place] [address] Performed By: #### 5 8410-2 ####[facility] [id number] [place] [address] [place] Hemoglobin (Bld) [Mass/Vol] 11.6 g/dL Normal 11.5-15.5 [facility] Comment on above: Order Comment: Speci men Type: BLOOD SPECIMENOrdering Facility: [facility] Address: [address] [place] [address] Performed By: #### 5 8410-2 ####[facility] [id number] [place] [address] [place] MCH (RBC) [Entitic mass] 30.9 pg Normal 26.0-34.0 [facility] Comment on above: Order Comment: Speci men Type: BLOOD SPECIMENOrdering Facility: [facility] Address: [address] [place] [address] Performed By: #### 5 8410-2 ####[facility] [id number] [place] [address] [place] MCHC (RBC) [Mass/Vol] 34.2 g/dL Normal 30.5-36.0 [facility] Comment on above: Order Comment: Speci men Type: BLOOD SPECIMENOrdering Facility: [facility] Address: [address] [place] [address] Performed By: #### 5 8410-2 ####[facility] [id number] [place] [address] [place] MCV (RBC) [Entitic vol] 90.4 fL Normal 80.0-100.0 [facility] Comment on above: Order Comment: Speci men Type: BLOOD SPECIMENOrdering Facility: [facility] Address: [address] [place] [address] Performed By: #### 5 8410-2 ####[facility] [id number] [place] [address] [place] Nucleated RBC (Bld) [#/Vol] 10*3/uL Normal <0.01 [facility] Comment on above: Order Comment: Speci men Type: BLOOD SPECIMENOrdering Facility: [facility] Address: [address] [place] [address] Performed By: #### 5 8410-2 ####[facility] [id number] [place] [address] [place] Platelet mean volume (Bld) [Entitic vol] 12.5 fL Normal 9.0-12.7 [facility] Comment on above: Order Comment: Speci men Type: BLOOD SPECIMENOrdering Facility: [facility] Address: [address] [place] [address] Performed By: #### 5 8410-2 ####[facility] [id number] [place] [address] [place] Platelets (Bld) [#/Vol] 175 10*3/uL Normal 150-400 [facility] Comment on above: Order Comment: Speci men Type: BLOOD SPECIMENOrdering Facility: [facility] Address: [address] [place] [address] Performed By: #### 5 8410-2 ####[facility] [id number] [place] [address] [place] RBC (Bld) [#/Vol] 3.75 10*6/uL Low 3.90-5.20 [facility] Comment on above: Order Comment: Speci men Type: BLOOD SPECIMENOrdering Facility: [facility] Address: [address] [place] [address] Performed By: #### 5 8410-2 ####[facility] [id number] [place] [address] [place] WBC (Bld) [#/Vol] 2.61 10*3/uL Low 3.70-11.00 [facility] Comment on above: Order Comment: Speci men Type: BLOOD SPECIMENOrdering Facility: [facility] Address: [address] [place] [address] Performed By: #### 5 8410-2 ####[facility] [id number] [place] [address] [place] CONSULTon 12-07-2022 CONSULT Normal [facility] CONSULT PROGon 12-07-2022 CONSULT PROG Normal [facility] Comprehensive metabolic 2000 panelon 12-07-2022 Albumin [Mass/Vol] 3.4 g/dL Low 3.9-4.9 [facility] Comment on above: Order Comment: Speci men Type: BLOOD SPECIMENOrdering Facility: [facility] Address: [address] [place] [address] Performed By: #### 2 4323-8 ####[facility] [id number] [place] [address] [place] ALP [Catalytic activity/Vol] 62 U/L Normal 34-123 [facility] Comment on above: Order Comment: Speci men Type: BLOOD SPECIMENOrdering Facility: [facility] Address: [address] [place] [address] Performed By: #### 2 4323-8 ####[facility] [id number] [place] [address] [place] ALT [Catalytic activity/Vol] 19 U/L Normal 7-38 [facility] Comment on above: Order Comment: Speci men Type: BLOOD SPECIMENOrdering Facility: [facility] Address: [address] [place] [address] Performed By: #### 2 4323-8 ####[facility] [id number] [place] [address] [place] Anion gap [Moles/Vol] 9 mmol/L Normal 9-18 [facility] Comment on above: Order Comment: Speci men Type: BLOOD SPECIMENOrdering Facility: [facility] Address: [address] [place] [address] Performed By: #### 2 4323-8 ####[facility] [id number] [place] [address] [place] AST [Catalytic activity/Vol] 31 U/L Normal 13-35 [facility] Comment on above: Order Comment: Speci men Type: BLOOD SPECIMENOrdering Facility: [facility] Address: [address] [place] [address] Performed By: #### 2 4323-8 ####[facility] [id number] [place] [address] [place] Bilirubin [Mass/Vol] 0.3 mg/dL Normal 0.2-1.3 [facility] Comment on above: Order Comment: Speci men Type: BLOOD SPECIMENOrdering Facility: [facility] Address: [address] [place] [address] Performed By: #### 2 4323-8 ####[facility] [id number] [place] [address] [place] Calcium [Mass/Vol] 8.6 mg/dL Normal 8.5-10.2 [facility] Comment on above: Order Comment: Speci men Type: BLOOD SPECIMENOrdering Facility: [facility] Address: [address] [place] [address] Performed By: #### 2 4323-8 ####[facility] [id number] [place] [address] [place] Chloride [Moles/Vol] 108 mmol/L High 97-105 [facility] Comment on above: Order Comment: Speci men Type: BLOOD SPECIMENOrdering Facility: [facility] Address: [address] [place] [address] Performed By: #### 2 4323-8 ####[facility] [id number] [place] [address] [place] CO2 [Moles/Vol] 22 mmol/L Normal 22-30 [facility] Comment on above: Order Comment: Speci men Type: BLOOD SPECIMENOrdering Facility: [facility] Address: [address] [place] [address] Performed By: #### 2 4323-8 ####[facility] [id number] [place] [address] [place] Creatinine [Mass/Vol] 0.85 mg/dL Normal 0.58-0.96 [facility] Comment on above: Order Comment: Geraldo marrero Type: BLOOD SPECIMENOrdering Facility: [facility] Address: [address] [place] [address] Performed By: #### 2 4323-8 ####[facility] [id number] [place] [address] [place] Creatinine and Glomerular filtration rate.predicted panel (S/P/Bld) 93 mL/min/1.73m??? Normal >=60 [facility] Comment on above: Order Comment: Geraldo marrero Type: BLOOD SPECIMENOrdering Facility: [facility] Address: [address] [place] [address] Result Comment: Jessica mated Glomerular Filtration Rate [...] actual GFR. Performed By: #### 2 4323-8 ####[facility] [id number] [place] [address] [place] Glucose [Mass/Vol] 80 mg/dL Normal 74-99 [facility] Comment on above: Order Comment: Geraldo marrero Type: BLOOD SPECIMENOrdering Facility: [facility] Address: [address] [place] [address] Result Comment: The [place] [employer] (ADA) provides guidance for cutoff [...] Standards of Medical Care in Diabetes 2016, [place] [employer]. Diabetes Care. 2016.39(Suppl 1). Performed By: #### 2 4323-8 ####[facility] [id number] [place] [address] [place] Potassium [Moles/Vol] 3.7 mmol/L Normal 3.7-5.1 [facility] Comment on above: Order Comment: Speci men Type: BLOOD SPECIMENOrdering Facility: [facility] Address: [address] [place] [address] Performed By: #### 2 4323-8 ####[facility] [id number] [place] [address] [place] Protein [Mass/Vol] 5.5 g/dL Low 6.3-8.0 [facility] Comment on above: Order Comment: Speci men Type: BLOOD SPECIMENOrdering Facility: [facility] Address: [address] [place] [address] Performed By: #### 2 4323-8 ####[facility] [id number] [place] [address] [place] Sodium [Moles/Vol] 139 mmol/L Normal 136-144 [facility] Comment on above: Order Comment: Speci men Type: BLOOD SPECIMENOrdering Facility: [facility] Address: [address] [place] [address] Performed By: #### 2 4323-8 ####[facility] [id number] [place] [address] [place] Urea nitrogen [Mass/Vol] 12 mg/dL Normal 7-21 [facility] Comment on above: Order Comment: Speci men Type: BLOOD SPECIMENOrdering Facility: [facility] Address: [address] [place] [address] Performed By: #### 2 4323-8 ####[facility] [id number] [place] [address] [place] NURSING PROGon 12-07-2022 NURSING PROG Normal [facility] XR CHEST 1V PORT POST PICC - NBon 12-07-2022 XR CHEST 1V PORT POST PICC -NB Normal [facility] CASE MGT INIT ASSESon 2022 CASE MGT INIT ASSES Normal [facility] CBC W Auto Differential pane l (Bld)on 12-06-2022 Basophils (Bld) [#/Vol] 10*3/uL Normal <0.11 [facility] Comment on above: Order Comment: Speci men Type: BLOOD SPECIMENOrdering Facility: [facility] Address: [address] [place] [address] Performed By: #### 5 7021-8 ####[facility] [id number] [place] [address] [place] Basophils/100 WBC (Bld) 0.7 % Normal [facility] Comment on above: Order Comment: Speci men Type: BLOOD SPECIMENOrdering Facility: [facility] Address: [address] [place] [address] Performed By: #### 5 7021-8 ####[facility] [id number] [place] [address] [place] Differential cell count method Nom (Bld) Auto Normal [facility] Comment on above: Order Comment: Speci men Type: BLOOD SPECIMENOrdering Facility: [facility] Address: [address] [place] [address] Performed By: #### 5 7021-8 ####[facility] [id number] [place] [address] [place] Eosinophils (Bld) [#/Vol] 0.09 10*3/uL Normal <0.46 [facility] Comment on above: Order Comment: Speci men Type: BLOOD SPECIMENOrdering Facility: [facility] Address: [address] [place] [address] Performed By: #### 5 7021-8 ####[facility] [id number] [place] [address] [place] Eosinophils/100 WBC (Bld) 2.9 % Normal [facility] Comment on above: Order Comment: Speci men Type: BLOOD SPECIMENOrdering Facility: [facility] Address: [address] [place] [address] Performed By: #### 5 7021-8 ####[facility] [id number] [place] [address] [place] Erythrocyte distribution width (RBC) [Ratio] 13.2 % Normal 11.5-15.0 [facility] Comment on above: Order Comment: Speci men Type: BLOOD SPECIMENOrdering Facility: [facility] Address: [address] [place] [address] Performed By: #### 5 7021-8 ####[facility] [id number] [place] [address] [place] Hematocrit (Bld) [Volume fraction] 33.7 % Low 36.0-46.0 [facility] Comment on above: Order Comment: Speci men Type: BLOOD SPECIMENOrdering Facility: [facility] Address: [address] [place] [address] Performed By: #### 5 7021-8 ####[facility] [id number] [place] [address] [place] Hemoglobin (Bld) [Mass/Vol] 11.6 g/dL Normal 11.5-15.5 [facility] Comment on above: Order Comment: Speci men Type: BLOOD SPECIMENOrdering Facility: [facility] Address: [address] [place] [address] Performed By: #### 5 7021-8 ####[facility] [id number] [place] [address] [place] Immature granulocytes (Bld) [#/Vol] 10*3/uL Normal <0.10 [facility] Comment on above: Order Comment: Speci men Type: BLOOD SPECIMENOrdering Facility: [facility] Address: [address] [place] [address] Performed By: #### 5 7021-8 ####[facility] [id number] [place] [address] [place] Immature granulocytes/100 WBC (Bld) 0.3 % Normal [facility] Comment on above: Order Comment: Speci men Type: BLOOD SPECIMENOrdering Facility: [facility] Address: [address] [place] [address] Performed By: #### 5 7021-8 ####[facility] [id number] [place] [address] [place] Lymphocytes (Bld) [#/Vol] 1.31 10*3/uL Normal 1.00-4.00 [facility] Comment on above: Order Comment: Speci men Type: BLOOD SPECIMENOrdering Facility: [facility] Address: [address] [place] [address] Performed By: #### 5 7021-8 ####[facility] [id number] [place] [address] [place] Lymphocytes/100 WBC (Bld) 42.8 % Normal [facility] Comment on above: Order Comment: Speci men Type: BLOOD SPECIMENOrdering Facility: [facility] Address: [address] [place] [address] Performed By: #### 5 7021-8 ####[facility] [id number] [place] [address] [place] MCH (RBC) [Entitic mass] 30.8 pg Normal 26.0-34.0 [facility] Comment on above: Order Comment: Speci men Type: BLOOD SPECIMENOrdering Facility: [facility] Address: [address] [place] [address] Performed By: #### 5 7021-8 ####[facility] [id number] [place] [address] [place] MCHC (RBC) [Mass/Vol] 34.4 g/dL Normal 30.5-36.0 [facility] Comment on above: Order Comment: Speci men Type: BLOOD SPECIMENOrdering Facility: [facility] Address: [address] [place] [address] Performed By: #### 5 7021-8 ####[facility] [id number] [place] [address] [place] MCV (RBC) [Entitic vol] 89.4 fL Normal 80.0-100.0 [facility] Comment on above: Order Comment: Speci men Type: BLOOD SPECIMENOrdering Facility: [facility] Address: [address] [place] [address] Performed By: #### 5 7021-8 ####[facility] [id number] [place] [address] [place] Monocytes (Bld) [#/Vol] 0.24 10*3/uL Normal <0.87 [facility] Comment on above: Order Comment: Speci men Type: BLOOD SPECIMENOrdering Facility: [facility] Address: [address] [place] [address] Performed By: #### 5 7021-8 ####[facility] [id number] [place] [address] [place] Monocytes/100 WBC (Bld) 7.8 % Normal [facility] Comment on above: Order Comment: Speci men Type: BLOOD SPECIMENOrdering Facility: [facility] Address: [address] [place] [address] Performed By: #### 5 7021-8 ####[facility] [id number] [place] [address] [place] Neutrophils (Bld) [#/Vol] 1.39 10*3/uL Low 1.45-7.50 [facility] Comment on above: Order Comment: Speci men Type: BLOOD SPECIMENOrdering Facility: [facility] Address: [address] [place] [address] Performed By: #### 5 7021-8 ####[facility] [id number] [place] [address] [place] Neutrophils/100 WBC (Bld) 45.5 % Normal [facility] Comment on above: Order Comment: Speci men Type: BLOOD SPECIMENOrdering Facility: [facility] Address: [address] [place] [address] Performed By: #### 5 7021-8 ####[facility] [id number] [place] [address] [place] Nucleated RBC (Bld) [#/Vol] 10*3/uL Normal <0.01 [facility] Comment on above: Order Comment: Speci men Type: BLOOD SPECIMENOrdering Facility: [facility] Address: [address] [place] [address] Performed By: #### 5 7021-8 ####[facility] [id number] [place] [address] [place] Nucleated RBC/100 WBC (Bld) [Ratio] 0.0 /100 WBC Normal [facility] Comment on above: Order Comment: Speci men Type: BLOOD SPECIMENOrdering Facility: [facility] Address: [address] [place] [address] Performed By: #### 5 7021-8 ####[facility] [id number] [place] [address] [place] Platelet mean volume (Bld) [Entitic vol] 11.9 fL Normal 9.0-12.7 [facility] Comment on above: Order Comment: Speci men Type: BLOOD SPECIMENOrdering Facility: [facility] Address: [address] [place] [address] Performed By: #### 5 7021-8 ####[facility] [id number] [place] [address] [place] Platelets (Bld) [#/Vol] 163 10*3/uL Normal 150-400 [facility] Comment on above: Order Comment: Speci men Type: BLOOD SPECIMENOrdering Facility: [facility] Address: [address] [place] [address] Performed By: #### 5 7021-8 ####[facility] [id number] [place] [address] [place] RBC (Bld) [#/Vol] 3.77 10*6/uL Low 3.90-5.20 [facility] Comment on above: Order Comment: Speci men Type: BLOOD SPECIMENOrdering Facility: [facility] Address: [address] [place] [address] Performed By: #### 5 7021-8 ####[facility] [id number] [place] [address] [place] WBC (Bld) [#/Vol] 3.06 10*3/uL Low 3.70-11.00 [facility] Comment on above: Order Comment: Speci men Type: BLOOD SPECIMENOrdering Facility: [facility] Address: [address] [place] [address] Performed By: #### 5 7021-8 ####[facility] [id number] [place] [address] [place] CTA ABD/PELV W IVCONon 12-06 CTA ABD/PELV W IVCON Normal [facility] Comprehensive metabolic 2000 panelon 12-06-2022 Albumin [Mass/Vol] 3.6 g/dL Low 3.9-4.9 [facility] Comment on above: Order Comment: Speci men Type: BLOOD SPECIMENOrdering Facility: [facility] Address: [address] [place] [address] Performed By: #### 2 4323-8, 3040-3, 2776-02, ####[facility] [id number] [place] [address] [place] ALP [Catalytic activity/Vol] 61 U/L Normal 34-123 [facility] Comment on above: Order Comment: Speci men Type: BLOOD SPECIMENOrdering Facility: [facility] Address: [address] [place] [address] Performed By: #### 2 4323-8, 3040-3, 2776-02, ####[facility] [id number] [place] [address] [place] ALT [Catalytic activity/Vol] 16 U/L Normal 7-38 [facility] Comment on above: Order Comment: Speci men Type: BLOOD SPECIMENOrdering Facility: [facility] Address: [address] [place] [address] Performed By: #### 2 4323-8, 3040-3, 2776-02, ####[facility] [id number] [place] [address] [place] Anion gap [Moles/Vol] 10 mmol/L Normal 9-18 [facility] Comment on above: Order Comment: Speci men Type: BLOOD SPECIMENOrdering Facility: [facility] Address: [address] [place] [address] Performed By: #### 2 4323-8, 3040-3, 2776-02, ####[facility] [id number] [place] [address] [place] AST [Catalytic activity/Vol] 29 U/L Normal 13-35 [facility] Comment on above: Order Comment: Speci men Type: BLOOD SPECIMENOrdering Facility: [facility] Address: [address] [place] [id number] Performed By: #### 2 4323-8, 3040-3, 2777-1, 67735-7 ####[facility] [id number] [address] [address] [place] Bilirubin [Mass/Vol] 0.2 mg/dL Normal 0.2-1.3 [facility] Comment on above: Order Comment: Speci men Type: BLOOD SPECIMENOrdering Facility: [facility] Address: [address] [place] [id number] Performed By: #### 2 4323-8, 3040-3, 2777-1, ####[facility] [id number] [place] [address] [place] Calcium [Mass/Vol] 8.2 mg/dL Low 8.5-10.2 [facility] Comment on above: Order Comment: Speci men Type: BLOOD SPECIMENOrdering Facility: [facility] Address: [address] [id number] Performed By: #### 2 4323-8, 3040-3, 277-1, ####[facility] [id number] [place] [address] [place] Chloride [Moles/Vol] 109 mmol/L High 97-105 [facility] Comment on above: Order Comment: Speci men Type: BLOOD SPECIMENOrdering Facility: [facility] Address: [address] [place] [id number] Performed By: #### 2 4323-8, 3040-3, 2777-1, ####[facility] [id number] [place] [address] [place] CO2 [Moles/Vol] 21 mmol/L Low 22-30 [facility] Comment on above: Order Comment: Speci men Type: BLOOD SPECIMENOrdering Facility: [facility] Address: [address] [place] [address] Performed By: #### 2 4323-8, 3040-3, 2777-1, ####[facility] [id number] [place] [address] [place] Creatinine [Mass/Vol] 0.66 mg/dL Normal 0.58-0.96 [facility] Comment on above: Order Comment: Geraldo marrero Type: BLOOD SPECIMENOrdering Facility: [facility] Address: [address] [place] [address] Performed By: #### 2 4323-8, 3040-3, 277-1, ####[facility] [id number] [address] [place] Creatinine and Glomerular filtration rate.predicted panel (S/P/Bld) 119 mL/min/1.73m??? Normal >=60 [facility] Comment on above: Order Comment: Geraldo marrero Type: BLOOD SPECIMENOrdering Facility: [facility] Address: [address] [place] [address] Result Comment: Jessica mated Glomerular Filtration Rate [...] Performed By: #### 2 4323-8, 3040-3, 2776-02, ####[facility] [id number] [place] [address] [place] Glucose [Mass/Vol] 83 mg/dL Normal 74-99 [facility] Comment on above: Order Comment: Geraldo marrero Type: BLOOD SPECIMENOrdering Facility: [facility] Address: [address] [place] [address] Result Comment: The [place] [employer] (ADA) provides guidance for cutoff [...] Standards of Medical Care in Diabetes 2016, [place] [employer]. Diabetes Care. 2016.39(Suppl 1). Performed By: #### 2 4323-8, 3040-3, 2777-1, 38160-4 ####[facility] [id number] [place] [address] [place] Potassium [Moles/Vol] 3.7 mmol/L Normal 3.7-5.1 [facility] Comment on above: Order Comment: Speci men Type: BLOOD SPECIMENOrdering Facility: [facility] Address: [address] [place] [address] Performed By: #### 2 4323-8, 3040-3, 2777-, ####[facility] [id number] [place] [address] [place] Protein [Mass/Vol] 5.9 g/dL Low 6.3-8.0 [facility] Comment on above: Order Comment: Speci men Type: BLOOD SPECIMENOrdering Facility: [facility] Address: [address] [place] [address] Performed By: #### 2 4323-8, 3040-3, 2777-, ####[facility] [id number] [place] [address] [place] Sodium [Moles/Vol] 140 mmol/L Normal 136-144 [facility] Comment on above: Order Comment: Speci men Type: BLOOD SPECIMENOrdering Facility: [facility] Address: [address] [place] [address] Performed By: #### 2 4323-8, 3040-3, 2776-1, ####[facility] [id number] [place] [address] [place] Urea nitrogen [Mass/Vol] 13 mg/dL Normal 7-21 [facility] Comment on above: Order Comment: Speci men Type: BLOOD SPECIMENOrdering Facility: [facility] Address: [address] [place] [address] Performed By: #### 2 4323-8, 3040-3, 2776-, ####[facility] [id number] [address] [place] ED NOTEon 12-06-2022 ED NOTE HNO ID: [id number] Author: Michelle Regalado RN Service: Emergency Medicine Author Type: Registered Nurse Type: ED Notes Filed: 12/06/2022 10:09 PM Note Text: Report called to DEE Argueta. Normal [facility] ED NOTE HNO ID: [id number] Author: Maia Mosher RN Service: Emergency Medicine Author Type: Registered Nurse Type: ED Notes Filed: 12/06/2022 3:19 PM Note Text: Nurse handoff given to DEE Carreon Normal [facility] ED PROV NOTEon 12-06-2022 ED PROV NOTE Normal [facility] HISTORY PHYSICALon 3 HISTORY PHYSICAL Normal [facility] Lipase SerPl-cCncon 12-07-19 23 Lipase [Catalytic activity/Vol] 40 U/L Normal 16-61 [facility] Comment on above: Order Comment: Speci men Type: BLOOD SPECIMENOrdering Facility: [facility] Address: [address] [place] [id number] Performed By: #### 2 4323-8, 3040-3, 2776-1, ####[facility] [id number] [address] [id number] [address] [place] Magnesium SerPl-mCncon 12-06 Magnesium [Mass/Vol] 2.0 mg/dL Normal 1.7-2.3 [facility] Comment on above: Order Comment: Speci men Type: BLOOD SPECIMENOrdering Facility: [facility] Address: [address] [place] [address] Performed By: #### 2 4323-8, 3040-3, 2777-1, 50722-7 ####[facility] [id number] [place] [address] [place] Phosphate SerPl-mCncon 12-06 Phosphate [Mass/Vol] 2.7 mg/dL Normal 2.7-4.8 [facility] Comment on above: Order Comment: Speci men Type: BLOOD SPECIMENOrdering Facility: [facility] Address: [address] [place] [address] Performed By: #### 2 4323-8, 3040-3, 2777-, ####[facility] [id number] [place] [address] [place] Urinalysis complete panel (U )on 12-06-2022 Bacteria LM.HPF (Urine sed) [#/Area] Negative Normal Negative [facility] Comment on above: Order Comment: Speci men Type: URINE SPECIMENOrdering Facility: [facility] Address: [address] [place] [address] Performed By: #### 2 4356-8 ####[facility] [id number] [place] [address] [place] Bilirubin Ql (U) Negative Normal Negative [facility] Comment on above: Order Comment: Speci men Type: URINE SPECIMENOrdering Facility: [facility] Address: [address] [place] [address] Performed By: #### 2 4356-8 ####[facility] [id number] [id number] [address] [place] Clarity (Unsp spec) Clear Normal Clear [facility] Comment on above: Order Comment: Speci men Type: URINE SPECIMENOrdering Facility: [facility] Address: [address] [place] [address] Performed By: #### 2 4356-8 ####[facility] [id number] [place] [address] [place] Color (U) Yellow Normal Yellow [facility] Comment on above: Order Comment: Speci men Type: URINE SPECIMENOrdering Facility: [facility] Address: [address] [place] [address] Performed By: #### 2 4356-8 ####[facility] [id number] [place] [address] [place] Epithelial cells LM.HPF (Urine sed) [#/Area] Moderate Normal [facility] Comment on above: Order Comment: Speci men Type: URINE SPECIMENOrdering Facility: [facility] Address: [address] [place] [address] Performed By: #### 2 4356-8 ####[facility] [id number] [place] [address] [place] Glucose Test strip (U) [Mass/Vol] Negative Normal Negative [facility] Comment on above: Order Comment: Speci men Type: URINE SPECIMENOrdering Facility: [facility] Address: [address] [place] [address] Performed By: #### 2 4356-8 ####[facility] [id number] [place] [address] [place] Hemoglobin Ql (U) Negative Normal Negative [facility] Comment on above: Order Comment: Speci men Type: URINE SPECIMENOrdering Facility: [facility] Address: [address] [place] [address] Performed By: #### 2 4356-8 ####[facility] [id number] [place] [address] [place] Hyaline casts (Urine sed) [#/Area] 0 /[LPF] Normal 0 /LPF [facility] Comment on above: Order Comment: Speci men Type: URINE SPECIMENOrdering Facility: [facility] Address: [address] [place] [address] Performed By: #### 2 4356-8 ####[facility] [id number] [place] [address] [place] Ketones Ql (U) Negative Normal Negative [facility] Comment on above: Order Comment: Speci men Type: URINE SPECIMENOrdering Facility: [facility] Address: [address] [place] [address] Performed By: #### 2 4356-8 ####[facility] [id number] [place] [address] [place] Leukocyte esterase Test strip Ql (U) Negative Normal Negative [facility] Comment on above: Order Comment: Speci men Type: URINE SPECIMENOrdering Facility: [facility] Address: [address] [place] [address] Performed By: #### 2 4356-8 ####[facility] [id number] [place] [address] [place] Nitrite Ql (U) Negative Normal Negative [facility] Comment on above: Order Comment: Speci men Type: URINE SPECIMENOrdering Facility: [facility] Address: [address] [place] [address] Performed By: #### 2 4356-8 ####[facility] [id number] [place] [address] [place] pH (U) 7.0 [pH] Normal <8.5 [facility] Comment on above: Order Comment: Speci men Type: URINE SPECIMENOrdering Facility: [facility] Address: [address] [place] [address] Performed By: #### 2 4356-8 ####[facility] [id number] [place] [address] [place] Protein (U) [Mass/Vol] Negative Normal Negative [facility] Comment on above: Order Comment: Speci men Type: URINE SPECIMENOrdering Facility: [facility] Address: [address] [place] [address] Performed By: #### 2 4356-8 ####[facility] [id number] [place] [address] [place] RBC LM.HPF (Urine sed) [#/Area] 0-2 /HPF Normal 0-2 /HPF [facility] Comment on above: Order Comment: Speci men Type: URINE SPECIMENOrdering Facility: [facility] Address: [address] [place] [address] Performed By: #### 2 4356-8 ####[facility] [id number] [place] [address] [place] Specific gravity (U) [Rel density] 1.014 Normal 1.005-1.030 [facility] Comment on above: Order Comment: Speci men Type: URINE SPECIMENOrdering Facility: [facility] Address: [address] [place] [address] Performed By: #### 2 4356-8 ####[facility] [id number] [place] [address] [place] Urobilinogen Ql (U) 0.2 EU/dL Normal 0.2-1.0 EU/dL [facility] Comment on above: Order Comment: Speci men Type: URINE SPECIMENOrdering Facility: [facility] Address: [address] [place] [address] Performed By: #### 2 4356-8 ####[facility] [id number] [place] [address] [place] WBC LM.HPF (Urine sed) [#/Area] 0-5 /HPF Normal 0-5 /HPF [facility] Comment on above: Order Comment: Speci men Type: URINE SPECIMENOrdering Facility: [facility] Address: [address] [place] [address] Performed By: #### 2 4356-8 ####[facility] [id number] [id number] [address] [place] CNOVon 12-04-2022 CNOV Normal [facility] HISTORY PHYSICALon HISTORY PHYSICAL Normal [facility] Basic Metabolic Panelon 11-15 Anion gap [Moles/Vol] 10 mmol/L Normal 9-15 [facility] Comment on above: Performed By: #### L IPAS #### [facility] [address] [place] [address] Calcium [Mass/Vol] 8.4 mg/dL Low 8.5-9.9 [facility] Comment on above: Performed By: #### L IPAS #### [facility] [address] [place] [address] Chloride [Moles/Vol] 108 mmol/L Critically high 95-107 [facility] Comment on above: Performed By: #### L IPAS #### [facility] [address] [place] [address] CO2 [Moles/Vol] 23 mmol/L Normal 20-31 [facility] Comment on above: Performed By: #### L IPAS #### [facility] [address] [place] [address] Creatinine [Mass/Vol] 0.64 mg/dL Normal 0.50-0.90 [facility] Comment on above: Performed By: #### L IPAS #### [facility] [address] [place] [address] GFR >60.0 Normal >60 [facility] Comment on above: Result Comment: [...] secretion. Performed By: #### L IPAS #### [facility] [address] [place] [address] Glucose [Mass/Vol] 86 mg/dL Normal 70-99 [facility] Comment on above: Performed By: #### L IPAS #### [facility] [address] [place] [address] Potassium [Moles/Vol] 3.9 mmol/L Normal 3.4-4.9 [facility] Comment on above: Performed By: #### L IPAS #### [facility] [address] [place] [address] Sodium [Moles/Vol] 141 mmol/L Normal 135-144 [facility] Comment on above: Performed By: #### L IPAS #### [facility] [address] [place] [address] Urea nitrogen [Mass/Vol] 14 mg/dL Normal 6-20 [facility] Comment on above: Performed By: #### L IPAS #### [facility] [address] [place] [address] CBC With Platelet and Differ entialon 12-03-2022 Basophils (Bld) [#/Vol] 0.0 10*3/uL Normal 0.0-0.[address] [facility] Comment on above: Performed By: #### C BCWD #### [facility] [address] [place] [address] Basophils/100 WBC (Bld) 0.9 % Normal [facility] Comment on above: Performed By: #### C BCWD #### [facility] [address] [place] [address] Eosinophils (Bld) [#/Vol] 0.2 10*3/uL Normal 0.0-0.7 [facility] Comment on above: Performed By: #### C BCWD #### [facility] [address] [place] [address] Eosinophils/100 WBC (Bld) 5.2 % Normal [facility] Comment on above: Performed By: #### C BCWD #### [facility] [address] [place] [address] Erythrocyte distribution width (RBC) [Ratio] 13.2 % Normal 11.5-14.5 [facility] Comment on above: Performed By: #### C BCWD #### [facility] [address] [place] [address] Hematocrit (Bld) [Volume fraction] 35.9 % Low 37.0-47.0 [facility] Comment on above: Performed By: #### C BCWD #### [facility] [address] [place] [address] Hemoglobin (Bld) [Mass/Vol] 12.3 g/dL Normal 12.0-16.[address] [facility] Comment on above: Performed By: #### C BCWD #### [facility] [address] [place] [address] Lymphocytes (Bld) [#/Vol] 1.3 10*3/uL Normal 1.0-4.[address] [facility] Comment on above: Performed By: #### C BCWD #### [facility] [address] [place] [address] Lymphocytes/100 WBC (Bld) 38.2 % Normal [facility] Comment on above: Performed By: #### C BCWD #### [facility] [address] [place] [address] MCH (RBC) [Entitic mass] 30.8 pg Normal 27.0-31.[address] [facility] Comment on above: Performed By: #### C BCWD #### [facility] [address] [place] [address] MCHC 34.3 % Normal 33.0-37.[address] [facility] Comment on above: Performed By: #### C BCWD #### [facility] [address] [place] [address] MCV (RBC) [Entitic vol] 89.8 fL Normal 79.4-94.[address] [facility] Comment on above: Performed By: #### C BCWD #### [facility] [address] [place] [address] Monocytes (Bld) [#/Vol] 0.4 10*3/uL Normal 0.2-0.[address] [facility] Comment on above: Performed By: #### C BCWD #### [facility] [facility] [address] [place] [address] Monocytes/100 WBC (Bld) 10.9 % Normal [facility] Comment on above: Performed By: #### C BCWD #### [facility] [address] [place] [address] Neutrophils (Bld) [#/Vol] 1.5 10*3/uL Normal 1.4-6.[address] [facility] Comment on above: Performed By: #### C BCWD #### [facility] [address] [place] [address] Neutrophils/100 WBC (Bld) 44.5 % Normal [facility] Comment on above: Performed By: #### C BCWD #### [facility] [address] [place] [address] Platelets (Bld) [#/Vol] 204 10*3/uL Normal 130-400 [facility] Comment on above: Performed By: #### C BCWD #### [facility] [address] [place] [address] RBC (Bld) [#/Vol] 4.00 10*6/uL Low 4.20-5.40 [facility] Comment on above: Performed By: #### C BCWD #### [facility] [address] [place] [address] WBC (Bld) [#/Vol] 3.3 10*3/uL Low 4.8-10.[address] [facility] Comment on above: Performed By: #### C BCWD #### [facility] [address] [place] [address] Basophils (Bld) [#/Vol] 0.0 10*3/uL Normal 0.0-0.[address] [facility] Comment on above: Performed By: #### P GLU #### [facility] [address] [place] [address] Basophils/100 WBC (Bld) 0.7 % Normal [facility] Comment on above: Performed By: #### P GLU #### [facility] [address] [place] [address] Eosinophils (Bld) [#/Vol] 0.2 10*3/uL Normal 0.0-0.[address] [facility] Comment on above: Performed By: #### P GLU #### [facility] [address] [place] [address] Eosinophils/100 WBC (Bld) 5.9 % Normal [facility] Comment on above: Performed By: #### P GLU #### [facility] [address] [place] [address] Erythrocyte distribution width (RBC) [Ratio] 13.5 % Normal 11.5-14.[address] [facility] Comment on above: Performed By: #### P GLU #### [facility] [address] [place] [address] Hematocrit (Bld) [Volume fraction] 33.2 % Low 37.0-47.[address] [facility] Comment on above: Performed By: #### P GLU #### [facility] [address] [place] [address] Hemoglobin (Bld) [Mass/Vol] 11.8 g/dL Low 12.0-16.[address] [facility] Comment on above: Performed By: #### P GLU #### [facility] [address] [place] [address] Lymphocytes (Bld) [#/Vol] 1.1 10*3/uL Normal 1.0-4.[address] [facility] Comment on above: Performed By: #### P GLU #### [facility] [address] [place] [address] Lymphocytes/100 WBC (Bld) 39.5 % Normal [facility] Comment on above: Performed By: #### P GLU #### [facility] [address] [place] [address] MCH (RBC) [Entitic mass] 34.0 pg Critically high 27.0-31.[address] [facility] Comment on above: Performed By: #### P GLU #### [facility] [address] [place] [address] MCHC 35.5 % Normal 33.0-37.[address] [facility] Comment on above: Performed By: #### P GLU #### [facility] [address] [place] [address] MCV (RBC) [Entitic vol] 95.7 fL Critically high 79.4-94.[address] [facility] Comment on above: Performed By: #### P GLU #### [facility] [address] [place] [address] Monocytes (Bld) [#/Vol] 0.3 10*3/uL Normal 0.2-0.[address] [facility] Comment on above: Performed By: #### P GLU #### [facility] [address] [place] [address] Monocytes/100 WBC (Bld) 9.1 % Normal [facility] Comment on above: Performed By: #### P GLU #### [facility] [address] [place] [address] Neutrophils (Bld) [#/Vol] 1.3 10*3/uL Low 1.4-6.5 [facility] Comment on above: Performed By: #### P GLU #### [facility] [address] [place] [address] Neutrophils/100 WBC (Bld) 44.5 % Normal [facility] Comment on above: Performed By: #### P GLU #### [facility] [address] [place] [address] Platelets (Bld) [#/Vol] 186 10*3/uL Normal 130-[address] [facility] Comment on above: Performed By: #### P GLU #### [facility] [address] [place] [address] RBC (Bld) [#/Vol] 3.47 10*6/uL Low 4.20-5.40 [facility] Comment on above: Performed By: #### P GLU #### [facility] [address] [place] [address] WBC (Bld) [#/Vol] 2.9 10*3/uL Low 4.8-10.[address] [facility] Comment on above: Performed By: #### P GLU #### [facility] [address] [place] [address] CNPNon 12-03-2022 CNPN Normal [facility] Magnesiumon 12-03-2022 Magnesium [Mass/Vol] 1.8 mg/dL Normal 1.7-2.[address] [facility] Comment on above: Performed By: #### L IPAS #### [facility] [address] [place] [address] POCT Glucoseon 12-03-2022 Glucose [Mass/Vol] 90 mg/dL Normal 70-[address] [facility] Comment on above: Performed By: #### P GLU #### [facility] [address] [place] [address] POC Performed on ACCU-CHEK Normal [facility] Comment on above: Performed By: #### P GLU #### [facility] [address] [place] [address] Glucose [Mass/Vol] 101 mg/dL Critically high 70-99 [facility] Comment on above: Performed By: #### L IPAS #### [facility] [address] [place] [address] POC Performed on ACCU-CHEK Normal [facility] Comment on above: Performed By: #### L IPAS #### [facility] [address] [place] [address] Phosphoruson 12-03-2022 Phosphate [Mass/Vol] 3.6 mg/dL Normal 2.3-4.[address] [facility] Comment on above: Performed By: #### L IPAS #### [facility] [address] [place] [address] Basic Metabolic Panelon 11-15 Anion gap [Moles/Vol] 6 mmol/L Low 9-[address] [facility] Comment on above: Performed By: #### C BCWD #### [facility] [address] [place] [address] Calcium [Mass/Vol] 8.4 mg/dL Low 8.5-9.[address] [facility] Comment on above: Performed By: #### C BCWD #### [facility] [address] [place] [address] Chloride [Moles/Vol] 107 mmol/L Normal 95-107 [facility] Comment on above: Performed By: #### C BCWD #### [facility] [address] [place] [address] CO2 [Moles/Vol] 25 mmol/L Normal 20-31 [facility] Comment on above: Performed By: #### C BCWD #### [facility] [address] [place] [address] Creatinine [Mass/Vol] 0.57 mg/dL Normal 0.50-0.[address] [facility] Comment on above: Performed By: #### C BCWD #### [facility] [address] [place] [address] GFR >60.0 Normal >60 [facility] Comment on above: Result Comment: [...] secretion. Performed By: #### C BCWD #### [facility] [address] [place] [address] Glucose [Mass/Vol] 104 mg/dL Critically high 70-99 [facility] Comment on above: Performed By: #### C BCWD #### [facility] [address] [place] [address] Potassium [Moles/Vol] 4.0 mmol/L Normal 3.4-4.[address] [facility] Comment on above: Performed By: #### C BCWD #### [facility] [address] [place] [address] Sodium [Moles/Vol] 138 mmol/L Normal 135-[address] [facility] Comment on above: Performed By: #### C BCWD #### [facility] [address] [place] [address] Urea nitrogen [Mass/Vol] 12 mg/dL Normal 6-20 [facility] Comment on above: Performed By: #### C BCWD #### [facility] [address] [place] [address] CBC With Platelet and Differ entialon 12-02-2022 Anisocytosis Ql (Bld) 1+ Normal [facility] Comment on above: Performed By: #### C BCWD #### [facility] [address] [place] [address] Basophils (Bld) [#/Vol] 0.0 10*3/uL Normal 0.0-0.[address] [facility] Comment on above: Performed By: #### C BCWD #### [facility] [address] [place] [address] Basophils/100 WBC (Bld) 1.0 % Normal [facility] Comment on above: Performed By: #### C BCWD #### [facility] [address] [place] [address] Eosinophils (Bld) [#/Vol] 0.2 10*3/uL Normal 0.0-0.7 [facility] Comment on above: Performed By: #### C BCWD #### [facility] [address] [place] [address] Eosinophils/100 WBC (Bld) 9.0 % Normal [facility] Comment on above: Performed By: #### C BCWD #### [facility] [address] [place] [address] Lymphocytes (Bld) [#/Vol] 0.9 10*3/uL Low 1.0-4.[address] [facility] Comment on above: Performed By: #### C BCWD #### [facility] [address] [place] [address] Lymphocytes/100 WBC (Bld) 35.0 % Normal [facility] Comment on above: Performed By: #### C BCWD #### [facility] [address] [place] [address] Monocytes (Bld) [#/Vol] 0.1 10*3/uL Low 0.2-0.[address] [facility] Comment on above: Performed By: #### C BCWD #### [facility] [address] [place] [address] Monocytes/100 WBC (Bld) 4.6 % Normal [facility] Comment on above: Performed By: #### C BCWD #### [facility] [address] [place] [address] Neutrophils (Bld) [#/Vol] 1.4 10*3/uL Normal 1.4-6.[address] [facility] Comment on above: Performed By: #### C BCWD #### [facility] [address] [place] [address] Neutrophils/100 WBC (Bld) 50.0 % Normal [facility] Comment on above: Performed By: #### C BCWD #### [facility] [address] [place] [address] Ovalocytes 1+ Normal [facility] Comment on above: Performed By: #### C BCWD #### [facility] [address] [place] [address] Poikilocytosis 1+ Normal [facility] Comment on above: Performed By: #### C BCWD #### [facility] [address] [place] [address] Erythrocyte distribution width (RBC) [Ratio] 13.3 % Normal 11.5-14.5 [facility] Comment on above: Performed By: #### C BCWD #### [facility] [address] [place] [address] Hematocrit (Bld) [Volume fraction] 34.0 % Low 37.0-47.0 [facility] Comment on above: Performed By: #### C BCWD #### [facility] [address] [place] [address] Hemoglobin (Bld) [Mass/Vol] 11.8 g/dL Low 12.0-16.[address] [facility] Comment on above: Performed By: #### C BCWD #### [facility] [address] [place] [address] MCH (RBC) [Entitic mass] 31.3 pg Normal 27.0-31.[address] [facility] Comment on above: Performed By: #### C BCWD #### [facility] [address] [place] [address] MCHC 34.7 % Normal 33.0-37.[address] [facility] Comment on above: Performed By: #### C BCWD #### [facility] [address] [place] [address] MCV (RBC) [Entitic vol] 90.2 fL Normal 79.4-94.8 [facility] Comment on above: Performed By: #### C BCWD #### [facility] [address] [place] [address] Platelets (Bld) [#/Vol] 201 10*3/uL Normal 130-[address] [facility] Comment on above: Performed By: #### C BCWD #### [facility] [address] [place] [address] RBC (Bld) [#/Vol] 3.77 10*6/uL Low 4.20-5.40 [facility] Comment on above: Performed By: #### C BCWD #### [facility] [address] [place] [address] WBC (Bld) [#/Vol] 2.7 10*3/uL Low 4.8-10.[address] [facility] Comment on above: Performed By: #### C BCWD #### [facility] [address] [place] [address] Magnesiumon 12-02-2022 Magnesium [Mass/Vol] 1.9 mg/dL Normal 1.7-2.[address] [facility] Comment on above: Performed By: #### C BCWD #### [facility] [address] [place] [address] POCT Glucoseon 12-02-2022 Glucose [Mass/Vol] 115 mg/dL Critically high 70-99 [facility] Comment on above: Performed By: #### P GLU #### [facility] [address] [place] [address] POC Performed on ACCU-CHEK Normal [facility] Comment on above: Performed By: #### P GLU #### [facility] [address] [place] [address] Glucose [Mass/Vol] 94 mg/dL Normal 70-[address] [facility] Comment on above: Performed By: #### P GLU #### [facility] [address] [place] [address] POC Performed on ACCU-CHEK Normal [facility] Comment on above: Performed By: #### P GLU #### [facility] [address] [place] [address] Glucose [Mass/Vol] 94 mg/dL Normal 70-99 [facility] Comment on above: Performed By: #### P GLU #### [facility] [address] [place] [address] POC Performed on ACCU-CHEK Normal [facility] Comment on above: Performed By: #### P GLU #### [facility] [address] [place] [address] Phosphoruson 12-02-2022 Phosphate [Mass/Vol] 3.7 mg/dL Normal 2.3-4.[address] [facility] Comment on above: Performed By: #### P GLU #### [facility] [address] [place] [address] CNPNon 12-01-2022 CNPN Normal [facility] Metabolic Pane nestor 12-01-2022 Albumin [Mass/Vol] 3.7 g/dL Normal 3.5-4.[address] [facility] Comment on above: Performed By: #### C BCWD #### [facility] [address] [place] [address] ALP [Catalytic activity/Vol] 62 U/L Normal 40-130 [facility] Comment on above: Performed By: #### C BCWD #### [facility] [address] [place] [address] ALT [Catalytic activity/Vol] 16 U/L Normal 0-33 [facility] Comment on above: Performed By: #### C BCWD #### [facility] [address] [place] [address] Anion gap [Moles/Vol] 7 mmol/L Low 9-15 [facility] Comment on above: Performed By: #### C BCWD #### [facility] [address] [place] [address] AST [Catalytic activity/Vol] 30 U/L Normal 0-35 [facility] Comment on above: Performed By: #### C BCWD #### [facility] [address] [place] [address] Bilirubin [Mass/Vol] 0.3 mg/dL Normal 0.2-0.[address] [facility] Comment on above: Performed By: #### C BCWD #### [facility] [address] [place] [address] Calcium [Mass/Vol] 8.3 mg/dL Low 8.5-9.9 [facility] Comment on above: Performed By: #### C BCWD #### [facility] [address] [place] [address] Chloride [Moles/Vol] 106 mmol/L Normal 95-107 [facility] Comment on above: Performed By: #### C BCWD #### [facility] [address] [place] [address] CO2 [Moles/Vol] 23 mmol/L Normal 20-31 [facility] Comment on above: Performed By: #### C BCWD #### [facility] [address] [place] [address] Creatinine [Mass/Vol] 0.66 mg/dL Normal 0.50-0.[address] [facility] Comment on above: Performed By: #### C BCWD #### [facility] [address] [place] [address] GFR >60.0 Normal >60 [facility] Comment on above: Result Comment: [...] secretion. Performed By: #### C BCWD #### [facility] [address] [place] [address] Globulin (S) [Mass/Vol] 2.1 g/dL Low 2.3-3.[address] [facility] Comment on above: Performed By: #### C BCWD #### [facility] [address] [place] [address] Glucose [Mass/Vol] 104 mg/dL Critically high 70-99 [facility] Comment on above: Performed By: #### C BCWD #### [facility] [address] [place] [address] Potassium [Moles/Vol] 3.9 mmol/L Normal 3.4-4.[address] [facility] Comment on above: Performed By: #### C BCWD #### [facility] [address] [place] [address] Protein [Mass/Vol] 5.8 g/dL Low 6.3-8.[address] [facility] Comment on above: Performed By: #### C BCWD #### [facility] [address] [place] [address] Sodium [Moles/Vol] 136 mmol/L Normal 135-[address] [facility] Comment on above: Performed By: #### C BCWD #### [facility] [address] [place] [address] Urea nitrogen [Mass/Vol] 6 mg/dL Normal 6-20 [facility] Comment on above: Performed By: #### C BCWD #### [facility] [address] [place] [address] Magnesiumon 12-01-2022 Magnesium [Mass/Vol] 2.0 mg/dL Normal 1.7-2.[address] [facility] Comment on above: Performed By: #### C BCWD #### [facility] [address] [place] [address] POCT Glucoseon 12-01-2022 Glucose [Mass/Vol] 113 mg/dL Critically high 70-99 [facility] Comment on above: Performed By: #### P GLU #### [facility] [address] [place] [address] POC Performed on ACCU-CHEK Normal [facility] Comment on above: Result Comment: Robby meneses RN or Performed By: #### P GLU #### [facility] [address] [place] [address] Phosphoruson 12-01-2022 Phosphate [Mass/Vol] 3.7 mg/dL Normal 2.3-4.[address] [facility] Comment on above: Performed By: #### P GLU #### [facility] [address] [place] [address] Triglycerideson 12-01-2022 Triglyceride [Mass/Vol] 111 mg/dL Normal 0-150 [facility] Comment on above: Result Comment: ATP III Triglycerides Classification is Normal. Performed By: #### T RIG #### [facility] [address] [place] [address] Comprehensive Metabolic Pane nestor 11-30-2022 Albumin [Mass/Vol] 3.5 g/dL Normal 3.5-4.6 [facility] Comment on above: Performed By: #### C BCWD #### [facility] [address] [place] [address] ALP [Catalytic activity/Vol] 45 U/L Normal 40-130 [facility] Comment on above: Performed By: #### C BCWD #### [facility] [address] [place] [address] ALT [Catalytic activity/Vol] 15 U/L Normal 0-33 [facility] Comment on above: Result Comment: Spec imen hemolysis has exceeded the interference as defined by Kamran. Result may be affected. Suggest recollection if clinically indicated. Performed By: #### C BCWD #### [facility] [address] [place] [address] Anion gap [Moles/Vol] 6 mmol/L Low 9-15 [facility] Comment on above: Performed By: #### C BCWD #### [facility] [address] [place] [address] AST [Catalytic activity/Vol] 40 U/L Critically high 0-35 [facility] Comment on above: Result Comment: Spec imen hemolysis has exceeded the interference as defined by Kamran. Value may be falsely increased. Suggest recollection if clinically indicated. Performed By: #### C BCWD #### [facility] [address] [place] [address] Bilirubin [Mass/Vol] 0.3 mg/dL Normal 0.2-0.7 [facility] Comment on above: Performed By: #### C BCWD #### [facility] [address] [place] [address] Calcium [Mass/Vol] 8.3 mg/dL Low 8.5-9.[address] [facility] Comment on above: Performed By: #### C BCWD #### [facility] [address] [place] [address] Chloride [Moles/Vol] 107 mmol/L Normal 95-107 [facility] Comment on above: Performed By: #### C BCWD #### [facility] [address] [place] [address] CO2 [Moles/Vol] 23 mmol/L Normal 20-31 [facility] Comment on above: Performed By: #### C BCWD #### [facility] [address] [place] [address] Creatinine [Mass/Vol] 0.69 mg/dL Normal 0.50-0.90 [facility] Comment on above: Performed By: #### C BCWD #### [facility] [address] [place] [address] GFR >60.0 Normal >60 [facility] Comment on above: Result Comment: Adán kennyc [...] secretion. Performed By: #### C BCWD #### [facility] [address] [place] [address] Globulin (S) [Mass/Vol] 1.9 g/dL Low 2.3-3.5 [facility] Comment on above: Performed By: #### C BCWD #### [facility] [address] [place] [address] Glucose [Mass/Vol] 86 mg/dL Normal 70-99 [facility] Comment on above: Performed By: #### C BCWD #### [facility] [address] [place] [address] Potassium [Moles/Vol] 4.6 mmol/L Normal 3.4-4.9 [facility] Comment on above: Result Comment: Spec imen hemolysis has exceeded the interference as defined by Kamran. Value may be falsely increased. Suggest recollection if clinically indicated. Performed By: #### C BCWD #### [facility] [address] [place] [address] Protein [Mass/Vol] 5.4 g/dL Low 6.3-8.[address] [facility] Comment on above: Performed By: #### C BCWD #### [facility] [address] [place] [address] Sodium [Moles/Vol] 136 mmol/L Normal 135-144 [facility] Comment on above: Performed By: #### C BCWD #### [facility] [address] [place] [address] Urea nitrogen [Mass/Vol] 4 mg/dL Low 6-20 [facility] Comment on above: Performed By: #### C BCWD #### [facility] [address] [place] [address] IR PICC WO SQ PORT/PUMP > 5 [...] caps and surgical masks. 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 A 5-I[place]ic dual-lumen PICC was advanced through the sheath, [...] Cedrick Billings MD 11/30/22 Final result Normal [facility] Magnesiumon 11-30-2022 Magnesium [Mass/Vol] 1.9 mg/dL Normal 1.7-2.[address] [facility] Comment on above: Performed By: #### P GLU #### [facility] [address] [place] [address] Phosphoruson 11-30-2022 Phosphate [Mass/Vol] 3.2 mg/dL Normal 2.3-4.8 [facility] Comment on above: Performed By: #### C BCWD #### [facility] [address] [place] [address] CBC With Platelet and Differ entialon 11-29-2022 Basophils (Bld) [#/Vol] 0.0 10*3/uL Normal 0.0-0.2 [facility] Comment on above: Performed By: #### P GLU #### [facility] [address] [place] [address] Basophils/100 WBC (Bld) 0.6 % Normal [facility] Comment on above: Performed By: #### P GLU #### [facility] [address] [place] [address] Eosinophils (Bld) [#/Vol] 0.1 10*3/uL Normal 0.0-0.7 [facility] Comment on above: Performed By: #### P GLU #### [facility] [address] [place] [address] Eosinophils/100 WBC (Bld) 4.4 % Normal [facility] Comment on above: Performed By: #### P GLU #### [facility] [address] [place] [address] Erythrocyte distribution width (RBC) [Ratio] 13.6 % Normal 11.5-14.5 [facility] Comment on above: Performed By: #### P GLU #### [facility] [address] [place] [address] Hematocrit (Bld) [Volume fraction] 36.4 % Low 37.0-47.0 [facility] Comment on above: Performed By: #### P GLU #### [facility] [address] [place] [address] Hemoglobin (Bld) [Mass/Vol] 12.2 g/dL Normal 12.0-16.[address] [facility] Comment on above: Performed By: #### P GLU #### [facility] [address] [place] [address] Lymphocytes (Bld) [#/Vol] 1.3 10*3/uL Normal 1.0-4.8 [facility] Comment on above: Performed By: #### P GLU #### [facility] [address] [place] [address] Lymphocytes/100 WBC (Bld) 41.0 % Normal [facility] Comment on above: Performed By: #### P GLU #### [facility] [address] [place] [address] MCH (RBC) [Entitic mass] 30.9 pg Normal 27.0-31.3 [facility] Comment on above: Performed By: #### P GLU #### [facility] [address] [place] [address] MCHC 33.5 % Normal 33.0-37.0 [facility] Comment on above: Performed By: #### P GLU #### [facility] [address] [place] [address] MCV (RBC) [Entitic vol] 92.2 fL Normal 79.4-94.8 [facility] Comment on above: Performed By: #### P GLU #### [facility] [address] [place] [address] Monocytes (Bld) [#/Vol] 0.3 10*3/uL Normal 0.2-0.8 [facility] Comment on above: Performed By: #### P GLU #### [facility] [address] [place] [address] Monocytes/100 WBC (Bld) 9.8 % Normal [facility] Comment on above: Performed By: #### P GLU #### [facility] [address] [place] [address] Neutrophils (Bld) [#/Vol] 1.4 10*3/uL Normal 1.4-6.5 [facility] Comment on above: Performed By: #### P GLU #### [facility] [address] [place] [address] Neutrophils/100 WBC (Bld) 44.2 % Normal [facility] Comment on above: Performed By: #### P GLU #### [facility] [address] [place] [address] Platelets (Bld) [#/Vol] 242 10*3/uL Normal 130-400 [facility] Comment on above: Performed By: #### P GLU #### [facility] [address] [place] [address] RBC (Bld) [#/Vol] 3.95 10*6/uL Low 4.20-5.40 [facility] Comment on above: Performed By: #### P GLU #### [facility] [address] [place] [address] WBC (Bld) [#/Vol] 3.2 10*3/uL Low 4.8-10.8 [facility] Comment on above: Performed By: #### P GLU #### [facility] [address] [place] [address] Comprehensive Metabolic Pane nestor 11-29-2022 Albumin [Mass/Vol] 3.5 g/dL Normal 3.5-4.6 [facility] Comment on above: Performed By: #### P GLU #### [facility] [address] [place] [address] ALP [Catalytic activity/Vol] 60 U/L Normal 40-130 [facility] Comment on above: Performed By: #### P GLU #### [facility] [address] [place] [address] ALT [Catalytic activity/Vol] 15 U/L Normal 0-33 [facility] Comment on above: Performed By: #### P GLU #### [facility] [address] [place] [address] Anion gap [Moles/Vol] 8 mmol/L Low 9-15 [facility] Comment on above: Performed By: #### P GLU #### [facility] [address] [place] [address] AST [Catalytic activity/Vol] 28 U/L Normal 0-35 [facility] Comment on above: Performed By: #### P GLU #### [facility] [address] [place] [address] Bilirubin [Mass/Vol] mg/dL Normal 0.2-0.7 [facility] Comment on above: Performed By: #### P GLU #### [facility] [address] [place] [address] Calcium [Mass/Vol] 8.4 mg/dL Low 8.5-9.[address] [facility] Comment on above: Performed By: #### P GLU #### [facility] [address] [place] [address] Chloride [Moles/Vol] 113 mmol/L Critically high 95-107 [facility] Comment on above: Performed By: #### P GLU #### [facility] [address] [place] [address] CO2 [Moles/Vol] 23 mmol/L Normal 20-31 [facility] Comment on above: Performed By: #### P GLU #### [facility] [address] [place] [address] Creatinine [Mass/Vol] 0.71 mg/dL Normal 0.50-0.90 [facility] Comment on above: Performed By: #### P GLU #### [facility] [address] [place] [address] GFR >60.0 Normal >60 [facility] Comment on above: Result Comment: [...] secretion. Performed By: #### P GLU #### [facility] [address] [place] [address] Globulin (S) [Mass/Vol] 2.2 g/dL Low 2.3-3.[address] [facility] Comment on above: Performed By: #### P GLU #### [facility] [address] [place] [address] Glucose [Mass/Vol] 85 mg/dL Normal 70-99 [facility] Comment on above: Performed By: #### P GLU #### [facility] [address] [place] [address] Potassium [Moles/Vol] 4.2 mmol/L Normal 3.4-4.[address] [facility] Comment on above: Performed By: #### P GLU #### [facility] [address] [place] [address] Protein [Mass/Vol] 5.7 g/dL Low 6.3-8.[address] [facility] Comment on above: Performed By: #### P GLU #### [facility] [address] [place] [address] Sodium [Moles/Vol] 144 mmol/L Normal 135-144 [facility] Comment on above: Performed By: #### P GLU #### [facility] [address] [place] [address] Urea nitrogen [Mass/Vol] 5 mg/dL Low 6-20 [facility] Comment on above: Performed By: #### P GLU #### [facility] [address] [place] [address] Lactic Acidon 11-29-2022 Lactate [Moles/Vol] 0.9 mmol/L Normal 0.5-2.[address] [facility] Comment on above: Performed By: #### L IPAS #### [facility] [address] [place] [address] Lipaseon 11-29-2022 Lipase [Catalytic activity/Vol] 48 U/L Normal 12-95 [facility] Comment on above: Performed By: #### L IPAS #### [facility] [address] [place] [address] Magnesiumon 11-29-2022 Magnesium [Mass/Vol] 1.9 mg/dL Normal 1.7-2.[address] [facility] Comment on above: Performed By: #### P GLU #### [facility] [address] [place] [address] Partial Thromboplastin Timeo n 11-29-2022 aPTT Coag (Bld) [Time] 33.0 s Normal 24.4-36.8 [facility] Comment on above: Result Comment: Effe ctive 12/20/2019: Heparin Therapeutic Range: 64.0 ? 98.0 seconds. Performed By: #### C BCWD #### [facility] [address] [place] [address] Phosphoruson 11-29-2022 Phosphate [Mass/Vol] 3.3 mg/dL Normal 2.3-4.8 [facility] Comment on above: Performed By: #### C BCWD #### [facility] [address] [place] [address] Prothrombin Timeon INR Coag (PPP) [Relative time] 1.2 {INR} Normal [facility] Comment on above: Performed By: #### P T #### [facility] [address] [place] [address] PT Coag (PPP) [Time] 15.6 s Critically high 12.3-14.[address] [facility] Comment on above: Performed By: #### P T #### [facility] [address] [place] [address] Prealbuminon 11-28-2022 Prealbumin [Mass/Vol] 15.0 mg/dL Low 20.0-40.0 [facility] Comment on above: Order Comment: Colle ction has been rescheduled by DUEAS at 11/28/2022 18:15 Reason:Failed attempt at venipuncture Performed By: #### L IPAS #### [facility] [address] [place] [address] Amylaseon 11-27-2022 Amylase [Catalytic activity/Vol] 44 U/L Normal 22-93 [facility] Comment on above: Performed By: #### P GLU #### [facility] [address] [place] [address] CBC With Platelet and Differ entialon 11-27-2022 Basophils (Bld) [#/Vol] 0.0 10*3/uL Normal 0.0-0.[address] [facility] Comment on above: Performed By: #### P GLU #### [facility] [address] [place] [address] Basophils/100 WBC (Bld) 0.7 % Normal [facility] Comment on above: Performed By: #### P GLU #### [facility] [address] [place] [address] Eosinophils (Bld) [#/Vol] 0.1 10*3/uL Normal 0.0-0.7 [facility] Comment on above: Performed By: #### P GLU #### [facility] [address] [place] [address] Eosinophils/100 WBC (Bld) 1.4 % Normal [facility] Comment on above: Performed By: #### P GLU #### [facility] [address] [place] [address] Erythrocyte distribution width (RBC) [Ratio] 13.3 % Normal 11.5-14.5 [facility] Comment on above: Performed By: #### P GLU #### [facility] [address] [place] [address] Hematocrit (Bld) [Volume fraction] 38.0 % Normal 37.0-47.0 [facility] Comment on above: Performed By: #### P GLU #### [facility] [address] [place] [address] Hemoglobin (Bld) [Mass/Vol] 12.7 g/dL Normal 12.0-16.0 [facility] Comment on above: Performed By: #### P GLU #### [facility] [address] [place] [address] Lymphocytes (Bld) [#/Vol] 1.4 10*3/uL Normal 1.0-4.8 [facility] Comment on above: Performed By: #### P GLU #### [facility] [address] [place] [address] Lymphocytes/100 WBC (Bld) 32.1 % Normal [facility] Comment on above: Performed By: #### P GLU #### [facility] [address] [place] [address] MCH (RBC) [Entitic mass] 30.6 pg Normal 27.0-31.3 [facility] Comment on above: Performed By: #### P GLU #### [facility] [address] [place] [address] MCHC 33.4 % Normal 33.0-37.0 [facility] Comment on above: Performed By: #### P GLU #### [facility] [address] [place] [address] MCV (RBC) [Entitic vol] 91.6 fL Normal 79.4-94.8 [facility] Comment on above: Performed By: #### P GLU #### [facility] [address] [place] [address] Monocytes (Bld) [#/Vol] 0.3 10*3/uL Normal 0.2-0.8 [facility] Comment on above: Performed By: #### P GLU #### [facility] [address] [place] [address] Monocytes/100 WBC (Bld) 6.0 % Normal [facility] Comment on above: Performed By: #### P GLU #### [facility] [address] [place] [address] Neutrophils (Bld) [#/Vol] 2.6 10*3/uL Normal 1.4-6.5 [facility] Comment on above: Performed By: #### P GLU #### [facility] [address] [place] [address] Neutrophils/100 WBC (Bld) 59.6 % Normal [facility] Comment on above: Performed By: #### P GLU #### [facility] [address] [place] [address] Platelets (Bld) [#/Vol] 238 10*3/uL Normal 130-400 [facility] Comment on above: Performed By: #### P GLU #### [facility] [address] [place] [address] RBC (Bld) [#/Vol] 4.15 10*6/uL Low 4.20-5.40 [facility] Comment on above: Performed By: #### P GLU #### [facility] [address] [place] [address] WBC (Bld) [#/Vol] 4.4 10*3/uL Low 4.8-10.8 [facility] Comment on above: Performed By: #### P GLU #### [facility] [address] [place] [address] CT ABDOMEN PELVIS W IV CONTR Daljit [...] Iker Ayala MD 11/27/22 Final result Normal [facility] CTA CHEST W WO CONTRASTon [...] Jason Mcrae MD 11/27/22 Final result Normal [facility] Comprehensive Metabolic Pane nestor 11-27-2022 Albumin [Mass/Vol] 4.0 g/dL Normal 3.5-4.6 [facility] Comment on above: Performed By: #### P GLU #### [facility] [address] [place] [address] ALP [Catalytic activity/Vol] 60 U/L Normal 40-130 [facility] Comment on above: Performed By: #### P GLU #### [facility] [address] [place] [address] ALT [Catalytic activity/Vol] 20 U/L Normal 0-33 [facility] Comment on above: Performed By: #### P GLU #### [facility] [address] [place] [address] Anion gap [Moles/Vol] 10 mmol/L Normal 9-15 [facility] Comment on above: Performed By: #### P GLU #### [facility] [address] [place] [address] AST [Catalytic activity/Vol] 34 U/L Normal 0-35 [facility] Comment on above: Performed By: #### P GLU #### [facility] [address] [place] [address] Bilirubin [Mass/Vol] 0.4 mg/dL Normal 0.2-0.7 [facility] Comment on above: Performed By: #### P GLU #### [facility] [address] [place] [address] Calcium [Mass/Vol] 8.4 mg/dL Low 8.5-9.9 [facility] Comment on above: Performed By: #### P GLU #### [facility] [address] [place] [address] Chloride [Moles/Vol] 108 mmol/L Critically high 95-107 [facility] Comment on above: Performed By: #### P GLU #### [facility] [address] [place] [address] CO2 [Moles/Vol] 20 mmol/L Normal 20-31 [facility] Comment on above: Performed By: #### P GLU #### [facility] [address] [place] [address] Creatinine [Mass/Vol] 0.68 mg/dL Normal 0.50-0.90 [facility] Comment on above: Performed By: #### P GLU #### [facility] [address] [place] [address] GFR >60.0 Normal >60 [facility] Comment on above: Result Comment: [...] secretion. Performed By: #### P GLU #### [facility] [address] [place] [address] Globulin (S) [Mass/Vol] 2.3 g/dL Normal 2.3-3.5 [facility] Comment on above: Performed By: #### P GLU #### [facility] [address] [place] [address] Glucose [Mass/Vol] 82 mg/dL Normal 70-99 [facility] Comment on above: Performed By: #### P GLU #### [facility] [address] [place] [address] Potassium [Moles/Vol] 3.7 mmol/L Normal 3.4-4.9 [facility] Comment on above: Performed By: #### P GLU #### [facility] [address] [place] [address] Protein [Mass/Vol] 6.3 g/dL Normal 6.3-8.0 [facility] Comment on above: Performed By: #### P GLU #### [facility] [address] [place] [address] Sodium [Moles/Vol] 138 mmol/L Normal 135-144 [facility] Comment on above: Performed By: #### P GLU #### [facility] [address] [place] [address] Urea nitrogen [Mass/Vol] 8 mg/dL Normal 6-20 [facility] Comment on above: Performed By: #### P GLU #### [facility] [address] [place] [address] High Sensitivity Troponin To n 11-27-2022 High Sensitivity Troponin T <6 Normal 0-19 [facility] Comment on above: Result Comment: High Sensitivity Troponin values cannot be compared with other Troponin methodologies. Performed By: #### T RP5 #### [facility] [address] [place] [address] High Sensitivity Troponin T <6 Normal 0-19 [facility] Comment on above: Result Comment: High Sensitivity Troponin values cannot be compared with other Troponin methodologies. Performed By: #### P GLU #### [facility] [address] [place] [address] Lactic Acidon 11-27-2022 Lactate [Moles/Vol] 1.0 mmol/L Normal 0.5-2.[address] [facility] Comment on above: Performed By: #### P GLU #### [facility] [address] [place] [address] Lipaseon 11-27-2022 Lipase [Catalytic activity/Vol] 37 U/L Normal 12-95 [facility] Comment on above: Performed By: #### P GLU #### [facility] [address] [place] [address] Magnesiumon 11-27-2022 Magnesium [Mass/Vol] 1.9 mg/dL Normal 1.7-2.[address] [facility] Comment on above: Performed By: #### P GLU #### [facility] [address] [place] [address] POCT Venouson 11-27-2022 Creatinine [Mass/Vol] 0.9 mg/dL Normal 0.6-1.[address] [facility] Comment on above: Performed By: #### L IPAS #### [facility] [address] [place] [address] GFR >60 Normal >60 [facility] Comment on above: Result Comment: [...] secretion. Performed By: #### L IPAS #### [facility] [address] [place] [address] POC Performed on SEE BELOW Normal [facility] Comment on above: Result Comment: Perf ormed on POC Performed By: #### L IPAS #### [facility] [address] [place] [address] POC Sample Type KIRA Normal [facility] Comment on above: Performed By: #### L IPAS #### [facility] [address] [place] [address] Urinalysis, reflex to cultur ryder 11-27-2022 Bilirubin Ql (U) Negative Normal Negative [facility] Comment on above: Performed By: #### P GLU #### [facility] [address] [place] [address] Clarity (U) Clear Normal Clear [facility] Comment on above: Performed By: #### P GLU #### [facility] [address] [place] [address] Color (U) Yellow Normal [place] [facility] Comment on above: Performed By: #### P GLU #### [facility] [address] [place] [address] Glucose Ql (U) Negative Normal Negative [facility] Comment on above: Performed By: #### P GLU #### [facility] [address] [place] [address] Hemoglobin Ql (U) Negative Normal Negative [facility] Comment on above: Performed By: #### P GLU #### [facility] [address] [place] [address] Ketones Ql (U) Negative Normal Negative [facility] Comment on above: Performed By: #### P GLU #### [facility] [address] [place] [address] Leukocyte esterase Test strip Ql (U) Negative Normal Negative [facility] Comment on above: Performed By: #### P GLU #### [facility] [address] [place] [address] Nitrite Ql (U) Negative Normal Negative [facility] Comment on above: Performed By: #### P GLU #### [facility] [address] [place] [address] pH (U) 7.5 [pH] Normal 5.0-9.0 [facility] Comment on above: Performed By: #### P GLU #### [facility] [address] [place] [address] Protein Ql (U) Negative Normal Negative [facility] Comment on above: Performed By: #### P GLU #### [facility] [address] [place] [address] Specific gravity (U) [Rel density] 1.026 Normal 1.005-1.03 [facility] Comment on above: Performed By: #### P GLU #### [facility] [address] [place] [address] Urine Reflexed to Culture Not Indicated Normal [facility] Comment on above: Performed By: #### P GLU #### [facility] [address] [place] [address] Urobilinogen Qn (U) 0.2 {Munir'U}/dL Normal < 2.[address] [facility] Comment on above: Performed By: #### P GLU #### [facility] [address] [place] [address] CNNURSEon 11-26-2022 CNNURSE Normal [facility] US MESENTERIC ARTERY CMPLT V LABon 11-26-2022 US MESENTERIC ARTERY CMPLT VAS LAB Normal [facility] Ambulatory Visit Summaryon 1 Ambulatory Visit Summary Normal [address] [place] [address]- \.br\ Medications\.br\ What How Much When Why [...] hours as needed for Pain Pickup at [facility]pharmacy #[id number]\.br\ Pharmacy Information\.br\ [id number]: [address], [place] [id number] [phone]\.br\ Allergies\.br\ NSAIDs (Unknown)\.br\ codeine (unknown)\.br\ Problems\.br\ Ongoing [...] Metabolic syndrome\.br\ PCOS- polycystic ovary syndrome\.br\ \.br\ [facility] CNPNon 11-25-2022 CNPN Normal [facility] Family Medicine Office/Clini c Noteon 11-25-2022 Family Medicine Office/Clinic Note Normal [facility] Comment on above: Result Comment: Elec tronically Signed By: Jaquan Paula\.br\Date and Time Signed: 11/25/22 13:56 EDT Population Healthon 11-25-19 Population Health Normal [facility] Basic metabolic 1999 panelon 11-23-2022 Anion gap [Moles/Vol] 12 mmol/L Normal - [facility] Comment on above: Order Comment: Speci men Type: BLOOD SPECIMENOrdering Facility: [facility] Address: [address] [place], [place] [address] [address] Performed By: #### 2 4321-2, 62347-8, 55037-2 ####[facility] LABORATORYCLIA [id number] [place] [address] [place] Calcium [Mass/Vol] 8.4 mg/dL Low 8.5-10.2 [facility] Comment on above: Order Comment: Speci men Type: BLOOD SPECIMENOrdering Facility: [facility] Address: [address] [place] [address] Performed By: #### 2 4321-2, 74087-6, ####[facility] LABORATORYCLIA [id number] [place] [address] [place] Chloride [Moles/Vol] 107 mmol/L High 97-105 [facility] Comment on above: Order Comment: Speci men Type: BLOOD SPECIMENOrdering Facility: [facility] Address: [address] [place] [address] Performed By: #### 2 4321-2, 05510-1, ####[facility]ORATORYCLIA [id number] [place] [address] [place] CO2 [Moles/Vol] 19 mmol/L Low 22-30 [facility] Comment on above: Order Comment: Speci men Type: BLOOD SPECIMENOrdering Facility: [facility] Address: [address] [place] [address] Performed By: #### 2 4321-2, 72876-9, ####[facility] HOSPITALIA [id number] [place] [address] [place] Creatinine [Mass/Vol] 0.71 mg/dL Normal 0.58-0.96 [facility] Comment on above: Order Comment: Speci men Type: BLOOD SPECIMENOrdering Facility: [facility] Address: [address] [place] [address] Performed By: #### 2 4321-2, 80302-9, ####[facility] LABORATORYCLIA [id number] [place] [address] [place] Creatinine and Glomerular filtration rate.predicted panel (S/P/Bld) 115 mL/min/1.73m??? Normal >=60 [facility] Comment on above: Order Comment: Speci men Type: BLOOD SPECIMENOrdering Facility: [facility] Address: [address] [id number] Result Comment: Jessica mated Glomerular Filtration Rate [...] actual GFR. Performed By: #### 2 4321-2, 47294-0, ####[facility] HOSPITALIA [id number] [facility] [address] [place] Glucose [Mass/Vol] 105 mg/dL High 74-99 [facility] Comment on above: Order Comment: Geraldo marrero Type: BLOOD SPECIMENOrdering Facility: [facility] Address: [address] [place] [address] Result Comment: The [place] [employer] (ADA) provides guidance for cutoff [...] Standards of Medical Care in Diabetes 2016, [place] [employer]. Diabetes Care. 2016.39(Suppl 1). Performed By: #### 2 4321-2, 57383-7, ####[facility] LABORATORYIA [id number] [facility] [address] [place] Potassium [Moles/Vol] 3.8 mmol/L Normal 3.7-5.1 [facility] Comment on above: Order Comment: Geraldo [facility] Type: BLOOD SPECIMENOrdering Facility: [facility] Address: [address] [id number] Performed By: #### 2 4321-2, 67555-2, ####[facility] LABORATORYCLIA [id number] [place] [address] [place] Sodium [Moles/Vol] 138 mmol/L Normal 136-144 [facility]ital Comment on above: Order Comment: Speci men Type: BLOOD SPECIMENOrdering Facility: [facility] Address: [address] [place] [address] Performed By: #### 2 4321-2, 93073-4, ####[facility]ORATORYCLIA [id number] [place] [address] [place] Urea nitrogen [Mass/Vol] 7 mg/dL Normal 7-21 [facility] Comment on above: Order Comment: Speci men Type: BLOOD SPECIMENOrdering Facility: [facility] Address: [address] [id number] Performed By: #### 2 4321-2, 14634-2, ####[facility] LABORATORYCLIA [id number] [place] [address] [place] CASE MGT INIT [facility] 2022 CASE MGT INIT [facility] CBC panel Auto (Bld)on 11-23 Erythrocyte distribution width (RBC) [Ratio] 13.6 % Normal 11.5-15.0 [facility] Comment on above: Order Comment: Speci men Type: BLOOD SPECIMENOrdering Facility: [facility] Address: [address] [id number] Performed By: #### 5 8410-2 ####[facility] LABORATORYCLIA [id number] [place] [address] [place] Hematocrit (Bld) [Volume fraction] 36.4 % Normal 36.0-46.0 [facility] Comment on above: Order Comment: Speci men Type: BLOOD SPECIMENOrdering Facility: [facility] Address: [address] [id number] Performed By: #### 5 8410-2 ####[facility] HOSPITALIA [id number] [place] [address] [place] Hemoglobin (Bld) [Mass/Vol] 11.8 g/dL Normal 11.5-15.5 [facility] Comment on above: Order Comment: Speci men Type: BLOOD SPECIMENOrdering Facility: [facility] Address: [address] [place] [address] Performed By: #### 5 8410-2 ####[facility] [id number] [place] [address] [place] MCH (RBC) [Entitic mass] 30.4 pg Normal 26.0-34.0 [facility] Comment on above: Order Comment: Speci men Type: BLOOD SPECIMENOrdering Facility: [facility] Address: [address] [place] [address] Performed By: #### 5 8410-2 ####[facility] [id number] [place] [id number] [place] MCHC (RBC) [Mass/Vol] 32.4 g/dL Normal 30.5-36.0 [facility] Comment on above: Order Comment: Speci men Type: BLOOD SPECIMENOrdering Facility: [facility] Address: [address] [place] [address] Performed By: #### 5 8410-2 ####[facility] [id number] [place] [address] [place] MCV (RBC) [Entitic vol] 93.8 fL Normal 80.0-100.0 [facility] Comment on above: Order Comment: Speci men Type: BLOOD SPECIMENOrdering Facility: [facility] Address: [address] [place] [address] Performed By: #### 5 8410-2 ####[facility] [id number] [address] [place] Nucleated RBC (Bld) [#/Vol] 10*3/uL Normal <0.01 [facility] Comment on above: Order Comment: Speci men Type: BLOOD SPECIMENOrdering Facility: [facility] Address: [address] [place] [address] Performed By: #### 5 8410-2 ####[facility] HOSPITALIA [id number] [place] [address] [place] Platelet mean volume (Bld) [Entitic vol] 10.9 fL Normal 9.0-12.7 [facility] Comment on above: Order Comment: Speci men Type: BLOOD SPECIMENOrdering Facility: [facility] Address: [address] [place] [address] Performed By: #### 5 8410-2 ####[facility] LABORATORYIA [id number] [place] [address] [place] Platelets (Bld) [#/Vol] 217 10*3/uL Normal 150-400 [facility] Comment on above: Order Comment: Speci men Type: BLOOD SPECIMENOrdering Facility: [facility] Address: [address] [place] [address] Performed By: #### 5 8410-2 ####[facility] HOSPITALIA [id number] [place] [address] [place] RBC (Bld) [#/Vol] 3.88 10*6/uL Low 3.90-5.20 [facility] Comment on above: Order Comment: Speci men Type: BLOOD SPECIMENOrdering Facility: [facility] Address: [address] [place] [address] Performed By: #### 5 8410-2 ####[facility] LABORATORYIA [id number] [place] [address] [place] WBC (Bld) [#/Vol] 3.45 10*3/uL Low 3.70-11.00 [facility] Comment on above: Order Comment: Speci men Type: BLOOD SPECIMENOrdering Facility: [facility] Address: [address] [place] [address] Performed By: #### 5 8410-2 ####[facility]ORATORYIA [id number] [place] [address] [place] CNDSon 11-23-2022 CNDS Normal [facility] CNPNon 11-23-2022 CNPN Normal [facility] CONSULTon 11-23-2022 CONSULT Normal [facility] Hepatic function 2000 panelo n 11-23-2022 Albumin [Mass/Vol] 3.5 g/dL Low 3.9-4.9 [facility] Comment on above: Order Comment: Speci men Type: BLOOD SPECIMENOrdering Facility: [facility] Address: [address] [place] [address] Performed By: #### 2 4321-2, 83071-5, ####[facility]ORATORYCLIA [id number] [place] [address] [place] ALP [Catalytic activity/Vol] 58 U/L Normal 34-123 [facility] Comment on above: Order Comment: Speci men Type: BLOOD SPECIMENOrdering Facility: [facility] Address: [address] [place] [address] Performed By: #### 2 4321-2, 27910-1, ####[facility]ORATORYCLIA [id number] [place] [address] [place] ALT [Catalytic activity/Vol] 17 U/L Normal 7-38 [facility] Comment on above: Order Comment: Speci men Type: BLOOD SPECIMENOrdering Facility: [facility] Address: [address] [place] [address] Performed By: #### 2 4321-2, 09186-3, ####[facility]ORATORYCLIA [id number] [facility] [address] [place] AST [Catalytic activity/Vol] 34 U/L Normal 13-35 [facility] Comment on above: Order Comment: Speci men Type: BLOOD SPECIMENOrdering Facility: [facility] Address: [address] [place] [address] Performed By: #### 2 4321-2, 66723-6, ####[facility]ORATORYCLIA [id number] [place] [address] [place] Bilirubin [Mass/Vol] 0.4 mg/dL Normal 0.2-1.3 [facility] Comment on above: Order Comment: Speci men Type: BLOOD SPECIMENOrdering Facility: [facility] Address: [place] [address] Performed By: #### 2 4321-2, 45868-3, ####[facility]ORATORYIA [id number] [place] [address] [place] Bilirubin.conjugate d [Mass/Vol] mg/dL Normal <0.2 [facility] Comment on above: Order Comment: Speci men Type: BLOOD SPECIMENOrdering Facility: [facility] Address: [place] [address] Performed By: #### 2 4321-2, 25464-3, ####[facility] HOSPITALIA [id number] [place] [address] [place] Protein [Mass/Vol] 5.9 g/dL Low 6.3-8.0 [facility]ital Comment on above: Order Comment: Speci men Type: BLOOD SPECIMENOrdering Facility: [facility] Address: [place] [address] Performed By: #### 2 4321-2, 74768-3, ####[facility] HOSPITALIA [id number] [place] [address] [place] Magnesium SerPl-mCncon 11-23 Magnesium [Mass/Vol] 1.8 mg/dL Normal 1.7-2.3 [facility] Comment on above: Order Comment: Speci men Type: BLOOD SPECIMENOrdering Facility: [facility] Address: [place] [address] Performed By: #### 2 4321-2, 12643-4, ####[facility] HOSPITALIA [id number] [place] [address] [place] CBC W Auto Differential pane l (Bld)on 11-22-2022 Basophils (Bld) [#/Vol] 0.03 10*3/uL Normal <0.11 [facility] Comment on above: Order Comment: Speci men Type: BLOOD SPECIMENOrdering Facility: [facility] Address: [address] [place] [address] Performed By: #### 5 7021-8 ####[facility] LABORATORYCLIA [id number] [facility] [place] [address] [place] Basophils/100 WBC (Bld) 0.6 % Normal [facility] Comment on above: Order Comment: Speci men Type: BLOOD SPECIMENOrdering Facility: [facility] Address: [address] [place] [address] Performed By: #### 5 7021-8 ####[facility]ORATORYIA [id number] [place] [address] [place] Differential cell count method Nom (Bld) Auto Normal [facility] Comment on above: Order Comment: Speci men Type: BLOOD SPECIMENOrdering Facility: [facility] Address: [address] [place] [address] Performed By: #### 5 7021-8 ####[facility]ORATORYCLIA [id number] [facility] [address] [place] Eosinophils (Bld) [#/Vol] 0.08 10*3/uL Normal <0.46 [facility] Comment on above: Order Comment: Speci men Type: BLOOD SPECIMENOrdering Facility: [facility] Address: [address] [place] [address] Performed By: #### 5 7021-8 ####[facility]ORATORYCLIA [id number] [facility] [place] [address] [place] Eosinophils/100 WBC (Bld) 1.7 % Normal [facility] Comment on above: Order Comment: Speci men Type: BLOOD SPECIMENOrdering Facility: [facility] Address: [address] [place] [address] Performed By: #### 5 7021-8 ####[facility]ORATORYCLIA [id number] [facility] [address] [place] Erythrocyte distribution width (RBC) [Ratio] 13.4 % Normal 11.5-15.0 [facility] Comment on above: Order Comment: Speci men Type: BLOOD SPECIMENOrdering Facility: [facility] Address: [address] [place] [address] Performed By: #### 5 7021-8 ####[facility]ORATORYCLIA [id number] [place] [address] [place] Hematocrit (Bld) [Volume fraction] 40.4 % Normal 36.0-46.0 [facility] Comment on above: Order Comment: Speci men Type: BLOOD SPECIMENOrdering Facility: [facility] Address: [address] [place] [address] Performed By: #### 5 7021-8 ####[facility]ORATORYCLIA [id number] [place] [address] [place] Hemoglobin (Bld) [Mass/Vol] 13.8 g/dL Normal 11.5-15.5 [facility] Comment on above: Order Comment: Speci men Type: BLOOD SPECIMENOrdering Facility: [facility] Address: [address] [place] [address] Performed By: #### 5 7021-8 ####[facility]ORATORYIA [id number] [address] [place] Immature granulocytes (Bld) [#/Vol] 10*3/uL Normal <0.10 [facility] Comment on above: Order Comment: Speci men Type: BLOOD SPECIMENOrdering Facility: [facility] Address: [address] [place] [address] Performed By: #### 5 7021-8 ####[facility]ORATORYIA [id number] [address] [place] Immature granulocytes/100 WBC (Bld) 0.2 % Normal [facility] Comment on above: Order Comment: Speci men Type: BLOOD SPECIMENOrdering Facility: [facility] Address: [address] [place] [address] Performed By: #### 5 7021-8 ####[facility]ORATORYCLIA [id number] [place] [address] [place] Lymphocytes (Bld) [#/Vol] 2.01 10*3/uL Normal 1.00-4.00 [facility] Comment on above: Order Comment: Speci men Type: BLOOD SPECIMENOrdering Facility: [facility] Address: [address] [place] [address] Performed By: #### 5 7021-8 ####[facility]ORATORYIA [id number] [place] [address] [place] Lymphocytes/100 WBC (Bld) 42.2 % Normal [facility] Comment on above: Order Comment: Speci men Type: BLOOD SPECIMENOrdering Facility: [facility] Address: [address] [place] [address] Performed By: #### 5 7021-8 ####[facility] [id number] [place] [address] [place] MCH (RBC) [Entitic mass] 31.2 pg Normal 26.0-34.0 [facility] Comment on above: Order Comment: Speci men Type: BLOOD SPECIMENOrdering Facility: [facility] Address: [address] [place] [address] Performed By: #### 5 7021-8 ####[facility] HOSPITALIA [id number] [place] [address] [place] MCHC (RBC) [Mass/Vol] 34.2 g/dL Normal 30.5-36.0 [facility] Comment on above: Order Comment: Speci men Type: BLOOD SPECIMENOrdering Facility: [facility] Address: [address] [place] [address] Performed By: #### 5 7021-8 ####[facility] H[facility]ITALIA [id number] [address] [place] MCV (RBC) [Entitic vol] 91.4 fL Normal 80.0-100.0 [facility] Comment on above: Order Comment: Speci men Type: BLOOD SPECIMENOrdering Facility: [facility] Address: [address] [place] [address] Performed By: #### 5 7021-8 ####[facility]ORATORYCLIA [id number] [place] [address] [place] Monocytes (Bld) [#/Vol] 0.25 10*3/uL Normal <0.87 [facility] Comment on above: Order Comment: Speci men Type: BLOOD SPECIMENOrdering Facility: [facility] Address: [address] [place] [address] Performed By: #### 5 7021-8 ####[facility]ORATORYCLIA [id number] [place] [address] [place] Monocytes/100 WBC (Bld) 5.3 % Normal [facility] Comment on above: Order Comment: Speci men Type: BLOOD SPECIMENOrdering Facility: [facility] Address: [address] [place] [address] Performed By: #### 5 7021-8 ####[facility]ORATORYIA [id number] [place] [address] [place] Neutrophils (Bld) [#/Vol] 2.38 10*3/uL Normal 1.45-7.50 [facility] Comment on above: Order Comment: Speci men Type: BLOOD SPECIMENOrdering Facility: [facility] Address: [address] [place] [address] Performed By: #### 5 7021-8 ####[facility]ORATORYCLIA [id number] [facility] [place] [address] [place] Neutrophils/100 WBC (Bld) 50.0 % Normal [facility] Comment on above: Order Comment: Speci men Type: BLOOD SPECIMENOrdering Facility: [facility] Address: [address] [place] [address] Performed By: #### 5 7021-8 ####[facility]ORATORYCLIA [id number] [place] [address] [place] Nucleated RBC (Bld) [#/Vol] 10*3/uL Normal <0.01 [facility] Comment on above: Order Comment: Speci men Type: BLOOD SPECIMENOrdering Facility: [facility] Address: [address] [place] [address] Performed By: #### 5 7021-8 ####[facility] H[facility]ITALIA [id number] [place] [address] [place] Nucleated RBC/100 WBC (Bld) [Ratio] 0.0 /100 WBC Normal [facility] Comment on above: Order Comment: Speci men Type: BLOOD SPECIMENOrdering Facility: [facility] Address: [address] [place] [address] Performed By: #### 5 7021-8 ####[facility] H[facility]ITALIA [id number] [place] [address] [place] Platelet mean volume (Bld) [Entitic vol] 11.1 fL Normal 9.0-12.7 [facility] Comment on above: Order Comment: Speci men Type: BLOOD SPECIMENOrdering Facility: [facility] Address: [address] [place] [address] Performed By: #### 5 7021-8 ####[facility]ORATORYIA [id number] [place] [address] [place] Platelets (Bld) [#/Vol] 282 10*3/uL Normal 150-400 [facility] Comment on above: Order Comment: Speci men Type: BLOOD SPECIMENOrdering Facility: [facility] Address: [address] [place] [address] Performed By: #### 5 7021-8 ####[facility]ATORYIA [id number] [place] [address] [place] RBC (Bld) [#/Vol] 4.42 10*6/uL Normal 3.90-5.20 [facility] Comment on above: Order Comment: Speci men Type: BLOOD SPECIMENOrdering Facility: [facility] Address: [address] [place] [address] Performed By: #### 5 7021-8 ####[facility]OR[facility]ORYIA [id number] [place] [address] [place] WBC (Bld) [#/Vol] 4.76 10*3/uL Normal 3.70-11.00 [facility] Comment on above: Order Comment: Speci men Type: BLOOD SPECIMENOrdering Facility: [facility] Address: [address] [place] [address] Performed By: #### 5 7021-8 ####[facility] LABORATORYCLIA [id number] [place] [address] [place] ABD/PEL W IVCONon 023 CT ABD/PEL W IVCON Normal [facility] metabolic 2000 panelon 11-22-2022 Albumin [Mass/Vol] 4.4 g/dL Normal 3.9-4.9 [facility] Comment on above: Order Comment: Speci men Type: BLOOD SPECIMENOrdering Facility: [facility] Address: [address] [place] [address] Performed By: #### 1 9123-9, 60332-9, 0-3 ####[facility]ORATORYCLIA [id number] [place] [address] [place] ALP [Catalytic activity/Vol] 73 U/L Normal 34-123 [facility] Comment on above: Order Comment: Speci men Type: BLOOD SPECIMENOrdering Facility: [facility] Address: [address] [place] [address] Performed By: #### 1 9123-9, 05031-9, 3040-3 ####[facility] LABORATORYCLIA [id number] [place] [address] [place] ALT [Catalytic activity/Vol] 21 U/L Normal 7-38 [facility] Comment on above: Order Comment: Speci men Type: BLOOD SPECIMENOrdering Facility: [facility] Address: [address] [place] [address] Performed By: #### 1 9123-9, 95871-0, 3040-3 ####[facility] LABORATORYCLIA [id number] [place] [address] [place] Anion gap [Moles/Vol] 11 mmol/L Normal 9-18 [facility] Comment on above: Order Comment: Speci men Type: BLOOD SPECIMENOrdering Facility: [facility] Address: [address] [place] [address] Performed By: #### 1 9123-9, 41383-4, 0-3 ####[facility] LABORATORYCLIA [id number] [place] [address] [place] AST [Catalytic activity/Vol] 39 U/L High 13-35 [facility] Comment on above: Order Comment: Speci men Type: BLOOD SPECIMENOrdering Facility: [facility] Address: [address] [place] [address] Performed By: #### 1 9123-9, 83216-2, 0-3 ####[facility]ORATORYCLIA [id number] [place] [address] [place] Bilirubin [Mass/Vol] 0.3 mg/dL Normal 0.2-1.3 [facility] Comment on above: Order Comment: Speci men Type: BLOOD SPECIMENOrdering Facility: [facility] Address: [address] [place] [address] Performed By: #### 1 9123-9, 28404-2, 0-3 ####[facility]ORATORYCLIA [id number] [place] [address] [place] Calcium [Mass/Vol] 8.7 mg/dL Normal 8.5-10.2 [facility] Comment on above: Order Comment: Speci men Type: BLOOD SPECIMENOrdering Facility: [facility] Address: [address] [place] [address] Performed By: #### 1 9123-9, 00081-5, 0-3 ####[facility] LABORATORYCLIA [id number] [place] [address] [place] Chloride [Moles/Vol] 106 mmol/L High 97-105 [facility] Comment on above: Order Comment: Speci men Type: BLOOD SPECIMENOrdering Facility: [facility] Address: [address] [place] [address] Performed By: #### 1 9123-9, 73798-0, 3040-3 ####[facility]ORATORYCLIA [id number] [place] [address] [place] CO2 [Moles/Vol] 22 mmol/L Normal 22-30 [facility] Comment on above: Order Comment: Speci men Type: BLOOD SPECIMENOrdering Facility: [facility] Address: [address] [address] Performed By: #### 1 9123-9, 56430-2, 0-3 ####[facility] LABORATORYCLIA [id number] [place] [address] [place] Creatinine [Mass/Vol] 0.80 mg/dL Normal 0.58-0.96 [facility] Comment on above: Order Comment: Speci men Type: BLOOD SPECIMENOrdering Facility: [facility] Address: [address], [place] [address] Performed By: #### 1 9123-9, 77545-8, 0-3 ####[facility] HOSPITALIA [id number] [place] [address] [place] Creatinine and Glomerular filtration rate.predicted panel (S/P/Bld) 100 mL/min/1.73m??? Normal >=60 [facility] l Comment on above: Order Comment: Speci men Type: BLOOD SPECIMENOrdering Facility: [facility] Address: [address] [place] [address] Result Comment: Jessica mated Glomerular Filtration Rate [...] actual GFR. Performed By: #### 1 9123-9, 18079-5, 3040-3 ####[facility]ORATORYIA [id number] [place] [address] [place] Glucose [Mass/Vol] 88 mg/dL Normal 74-99 [facility] Comment on above: Order Comment: Speci men Type: BLOOD SPECIMENOrdering Facility: [facility] Address: [address] [place] [address] Result Comment: The [place] Diabetes Association (ADA) provides guidance for cutoff [...] Standards of Medical Care in Diabetes 2016, [place] [employer]. Diabetes Care. 2016.39(Suppl 1). Performed By: #### 1 9123-9, 57822-3, 3040-3 ####[facility] [id number] [place] [address] [place] Potassium [Moles/Vol] 3.9 mmol/L Normal 3.7-5.1 [facility] Comment on above: Order Comment: Lyssai men Type: BLOOD SPECIMENOrdering Facility: [facility] Address: [address] [place] [address] Performed By: #### 1 9123-9, 09099-9, 3040-3 ####[facility] LABORATORYCLIA [id number] [place] [address] [place] Protein [Mass/Vol] 7.1 g/dL Normal 6.3-8.0 [facility] Comment on above: Order Comment: Speci men Type: BLOOD SPECIMENOrdering Facility: [facility] Address: [address] [place] [address] Performed By: #### 1 9123-9, 22160-7, 3040-3 ####[facility]ORYIA [id number] [place] [address] [place] Sodium [Moles/Vol] 139 mmol/L Normal 136-144 [facility]ital Comment on above: Order Comment: Speci men Type: BLOOD SPECIMENOrdering Facility: [facility] Address: [address] [place] [id number] Performed By: #### 1 9123-9, 37793-9, 0-3 ####[facility] LABORATORYCLIA [id number] [place] [address] [place] Urea nitrogen [Mass/Vol] 8 mg/dL Normal 7-21 [facility] Comment on above: Order Comment: Speci men Type: BLOOD SPECIMENOrdering Facility: [facility] Address: [place] [address] Performed By: #### 1 9123-9, 27633-9, 0-3 ####[facility] LABORATORYCLIA [id number] [facility] [address] [place] ECG COMPLETEon 11-22-2022 ECG COMPLETE Normal [facility] ED NOTEon 11-22-2022 ED NOTE HNO ID: [id number] Author: Lady Garza RN Service: Emergency Medicine Author Type: Registered Nurse Type: ED Notes Filed: 11/22/2022 3:21 PM Note Text: Report to [facility] PRICE Normal [facility] ED PROV NOTEon 11-22-2022 ED PROV NOTE [facility] HISTORY PHYSICALon HISTORY PHYSICAL Normal [facility] Lipase SerPl-cCncon 11-23-19 23 Lipase [Catalytic activity/Vol] 45 U/L Normal 16-61 [facility] Comment on above: Order Comment: Speci men Type: BLOOD SPECIMENOrdering Facility: [facility] Address: [address] [place] [id number] Performed By: #### 1 9123-9, 08188-8, 0-3 ####[facility] LABORATORYCLIA [id number] [facility] [address] [place] Magnesium SerPl-mCncon 11-22 Magnesium [Mass/Vol] 1.9 mg/dL Normal 1.7-2.3 [facility] Comment on above: Order Comment: Speci men Type: BLOOD SPECIMENOrdering Facility: [facility] Address: [address] [place] [address] Performed By: #### 1 9123-9, 07194-1, 3040-3 ####[facility]ITALIA [id number] [place] [address] [place] NURSING PROGon 11-22-2022 NURSING PROG Normal [facility] Urinalysis complete panel (U )on 11-22-2022 Bilirubin Ql (U) Negative Normal Negative [facility] pital Comment on above: Order Comment: Speci men Type: URINE SPECIMENOrdering Facility: [facility] Address: [address] [place] [address] Performed By: #### 2 4356-8 ####[facility] [id number] [place] [address] [place] Clarity (Unsp spec) Clear Normal Clear [facility] Comment on above: Order Comment: Speci men Type: URINE SPECIMENOrdering Facility: [facility] Address: [address] [place] [address] Performed By: #### 2 4356-8 ####[facility] [id number] [place] [address] [place] Color (U) Light Yellow Normal yellow [facility] Comment on above: Order Comment: Speci men Type: URINE SPECIMENOrdering Facility: [facility] Address: [address] [place] [address] Performed By: #### 2 4356-8 ####[facility] H[facility]ITALIA [id number] [place] [address] [place] Epithelial cells LM.HPF (Urine sed) [#/Area] Few Normal [facility] Comment on above: Order Comment: Speci men Type: URINE SPECIMENOrdering Facility: [facility] Address: [address] [place] [address] Performed By: #### 2 4356-8 ####[facility] H[facility]ITALIA [id number] [place], [place] [address] [place] [address] [place] Glucose Test strip (U) [Mass/Vol] Negative Normal Trace, Negative [facility] Comment on above: Order Comment: Speci men Type: URINE SPECIMENOrdering Facility: [facility] Address: [address] [place] [address] Performed By: #### 2 4356-8 ####[facility]ORYIA [id number] [place] [address] [place] Hemoglobin Ql (U) Negative Normal Negative, Trace [facility] Comment on above: Order Comment: Speci men Type: URINE SPECIMENOrdering Facility: [facility] Address: [address] [place] [address] Performed By: #### 2 4356-8 ####[facility]ITALIA [id number] [place] [address] [place] Ketones Ql (U) Negative Normal Negative, Trace [facility] Comment on above: Order Comment: Speci men Type: URINE SPECIMENOrdering Facility: [facility] Address: [address] [place] [address] Performed By: #### 2 4356-8 ####[facility] H[facility]ITALIA [id number] [place] [address] [place] Leukocyte esterase Test strip Ql (U) Negative Normal Negative, 25 Patito/uL [facility] Comment on above: Order Comment: Speci men Type: URINE SPECIMENOrdering Facility: [facility] Address: [address] [place] [address] Performed By: #### 2 4356-8 ####[facility]ORYIA [id number] [place] [address] [place] Nitrite Ql (U) Negative Normal Negative [facility] Comment on above: Order Comment: Speci men Type: URINE SPECIMENOrdering Facility: [facility] Address: [address] [place] [address] Performed By: #### 2 4356-8 ####[facility]ORYIA [id number] [place] [address] [place] pH (U) 7.0 [pH] Normal 5.0-8.0 [facility] Comment on above: Order Comment: Speci men Type: URINE SPECIMENOrdering Facility: [facility] Address: [address] [place] [address] Performed By: #### 2 4356-8 ####[facility] HOS[facility]ITALIA [id number] [place] [address] [place] Protein (U) [Mass/Vol] Negative Normal Trace, Negative [facility] Comment on above: Order Comment: Speci men Type: URINE SPECIMENOrdering Facility: [facility] Address: [address] [place] [address] Performed By: #### 2 4356-8 ####[facility] [id number] [place] [address] [place] RBC LM.HPF (Urine sed) [#/Area] 0-3 /HPF Normal 0-3 /HPF [facility] Comment on above: Order Comment: Speci men Type: URINE SPECIMENOrdering Facility: [facility] Address: [address] [place] [address] Performed By: #### 2 4356-8 ####[facility] [id number] [address] [place] Specific gravity (U) [Rel density] 1.020 Normal 1.005-1.030 [facility] Comment on above: Order Comment: Speci men Type: URINE SPECIMENOrdering Facility: [facility] Address: [address] [place] [address] Performed By: #### 2 4356-8 ####[facility] [id number] [place] [address] [place] Urobilinogen Ql (U) Normal Normal Negative [facility] Comment on above: Order Comment: Speci men Type: URINE SPECIMENOrdering Facility: [facility] Address: [address] [place] [address] Performed By: #### 2 4356-8 ####[facility] [id number] [place] [address] [place] WBC LM.HPF (Urine sed) [#/Area] 0-5 /HPF Normal 0-5 /HPF [facility] Comment on above: Order Comment: Speci men Type: URINE SPECIMENOrdering Facility: [facility] Address: [address] [place] [address] Performed By: #### 2 4356-8 ####[facility] LABORATORYCLIA [id number] [place] [address] [place] XR CHEST 2V FRONTAL/LATon XR CHEST 2V FRONTAL/LAT Normal [facility] CNPNon 11-20-2022 CNPN Normal [facility] Basic metabolic 2000 panelon 11-19-2022 Anion gap [Moles/Vol] 11 mmol/L Normal 9-18 [facility] Comment on above: Order Comment: Speci men Type: BLOOD SPECIMENOrdering Facility: [facility] Address: [address] [place], [place] [address] Performed By: #### 1 9123-9, 26825-1, 2776- ####[facility]ORYCLIA [id number] [place] [id number] [place] Calcium [Mass/Vol] 8.9 mg/dL Normal 8.5-10.2 [facility] Comment on above: Order Comment: Speci men Type: BLOOD SPECIMENOrdering Facility: [facility] Address: [address] [place], [place] [address] Performed By: #### 1 9123-9, 79257-0, 2776- ####[facility]ATORYCLIA [id number] [place] [address] [place] Chloride [Moles/Vol] 104 mmol/L Normal 97-105 [facility] Comment on above: Order Comment: Speci men Type: BLOOD SPECIMENOrdering Facility: [facility] Address: [address] [place] [address] Performed By: #### 1 9123-9, 48839-9, 2776- ####[facility]ORYCLIA [id number] [place] [address] [place] CO2 [Moles/Vol] 25 mmol/L Normal 22-30 [facility] Comment on above: Order Comment: Speci men Type: BLOOD SPECIMENOrdering Facility: [facility] Address: [address] [place] [address] Performed By: #### 1 9123-9, 03788-3, 2776- ####[facility]ORYCLIA [id number] [address] [place] Creatinine [Mass/Vol] 0.82 mg/dL Normal 0.58-0.96 [facility] Comment on above: Order Comment: Speci men Type: BLOOD SPECIMENOrdering Facility: [facility] Address: [address] [place] [address] Performed By: #### 1 9123-9, 65584-2, 2776-02 ####[facility]ATORYCLIA [id number] [address] [facility] Creatinine and Glomerular filtration rate.predicted panel (S/P/Bld) 97 mL/min/1.73m??? Normal >=60 [facility] Comment on above: Order Comment: Speci men Type: BLOOD SPECIMENOrdering Facility: [facility] Address: [address] [place] [address] Result Comment: Jessica mated Glomerular Filtration Rate [...] actual GFR. Performed By: #### 1 9123-9, 31946-1, 2776-02 ####[facility]ORATORYCLIA [id number] [place] [address] [place] Glucose [Mass/Vol] 80 mg/dL Normal 74-99 [facility] Comment on above: Order Comment: Speci men Type: BLOOD SPECIMENOrdering Facility: [facility] Address: [address] [place] [address] Result Comment: The [place] Diabetes Association (ADA) provides guidance for cutoff [...] Standards of Medical Care in Diabetes 2016, [place] [employer]. Diabetes Care. 2016.39(Suppl 1). Performed By: #### 1 9123-9, 15851-7, 2776-02 ####[facility]ORATORYCLIA [id number] [place] [address] [place] Potassium [Moles/Vol] 4.2 mmol/L Normal 3.7-5.1 [facility] Comment on above: Order Comment: Speci men Type: BLOOD SPECIMENOrdering Facility: [facility] Address: [address] [place] [address] Performed By: #### 1 9123-9, , 2776-02 ####[facility]ORYCLIA [id number] [place] [address] [place] Sodium [Moles/Vol] 140 mmol/L Normal 136-144 [facility] Comment on above: Order Comment: Speci men Type: BLOOD SPECIMENOrdering Facility: [facility] Address: [address] [place] [address] Performed By: #### 1 9123-9, 30451-2, 2776-02 ####[facility]ATORYCLIA [id number] [place] [address] [place] Urea nitrogen [Mass/Vol] 6 mg/dL Low 7-21 [facility] Comment on above: Order Comment: Speci men Type: BLOOD SPECIMENOrdering Facility: [facility] Address: [address] [place] [address] Performed By: #### 1 9123-9, 62992-6, 2776-02 ####[facility]ORATORYCLIA [id number] [place] [address] [facility] CBC panel Auto (Bld)on 11-19 Erythrocyte distribution width (RBC) [Ratio] 13.2 % Normal 11.5-15.0 [facility] Comment on above: Order Comment: Speci men Type: BLOOD SPECIMENOrdering Facility: [facility] Address: [address] [place] [address] Performed By: #### 5 8410-2 ####[facility]ORATORYCLIA [id number] [address] Hematocrit (Bld) [Volume fraction] 36.3 % Normal 36.0-46.0 [facility] Comment on above: Order Comment: Speci men Type: BLOOD SPECIMENOrdering Facility: [facility] Address: [address] [place] [address] Performed By: #### 5 8410-2 ####[facility]ORATORYCLIA [id number] [address] Hemoglobin (Bld) [Mass/Vol] 12.4 g/dL Normal 11.5-15.5 [facility] Comment on above: Order Comment: Speci men Type: BLOOD SPECIMENOrdering Facility: [facility] Address: [address] [place] [address] Performed By: #### 5 8410-2 ####[facility]ORATORYCLIA [id number] [address] [place] MCH (RBC) [Entitic mass] 30.4 pg Normal 26.0-34.0 [facility] Comment on above: Order Comment: Speci men Type: BLOOD SPECIMENOrdering Facility: [facility] Address: [address] [place] [address] Performed By: #### 5 8410-2 ####[facility] LABORATORYCLIA [id number] [address] MCHC (RBC) [Mass/Vol] 34.2 g/dL Normal 30.5-36.0 [facility] Comment on above: Order Comment: Speci men Type: BLOOD SPECIMENOrdering Facility: [facility] Address: [address] [place] [address] Performed By: #### 5 8410-2 ####[facility]ORATORYCLIA [id number] [place] [id number] [place] MCV (RBC) [Entitic vol] 89.0 fL Normal 80.0-100.0 [facility] Comment on above: Order Comment: Speci men Type: BLOOD SPECIMENOrdering Facility: [facility] Address: [address] [place] [address] Performed By: #### 5 8410-2 ####[facility]ATORYCLIA [id number] [place] [address] [place] Nucleated RBC (Bld) [#/Vol] 10*3/uL Normal <0.01 [facility] Comment on above: Order Comment: Speci men Type: BLOOD SPECIMENOrdering Facility: [facility] Address: [address] [place] [address] Performed By: #### 5 8410-2 ####[facility]ORATORYCLIA [id number] [place] [address] [place] Platelet mean volume (Bld) [Entitic vol] 11.3 fL Normal 9.0-12.7 [facility] Comment on above: Order Comment: Speci men Type: BLOOD SPECIMENOrdering Facility: [facility] Address: [address] [place] [address] Performed By: #### 5 8410-2 ####[facility]ORATORYCLIA [id number] [place] [id number] [place] Platelets (Bld) [#/Vol] 239 10*3/uL Normal 150-400 [facility] Comment on above: Order Comment: Speci men Type: BLOOD SPECIMENOrdering Facility: [facility] Address: [address] [place] [address] Performed By: #### 5 8410-2 ####[facility]ORATORYCLIA [id number] [place] [address] [place] RBC (Bld) [#/Vol] 4.08 10*6/uL Normal 3.90-5.20 [facility] Comment on above: Order Comment: Speci men Type: BLOOD SPECIMENOrdering Facility: [facility] Address: [place] [address] Performed By: #### 5 8410-2 ####[facility]ORATORYCLIA [id number] [place] [address] [place] WBC (Bld) [#/Vol] 2.99 10*3/uL Low 3.70-11.00 [facility] Comment on above: Order Comment: Speci men Type: BLOOD SPECIMENOrdering Facility: [facility] Address: [place] [address] Performed By: #### 5 8410-2 ####[facility]ORATORYCLIA [id number] [place] [address] [place] CNDSon 11-19-2022 CNDS Normal [facility]19 Magnesium [Mass/Vol] 1.9 mg/dL Normal 1.7-2.3 [facility] Comment on above: Order Comment: Speci men Type: BLOOD SPECIMENOrdering Facility: [facility] Address: [place] [address] Performed By: #### 1 9123-9, 80326-5, 2777- ####[facility]ORATORYCLIA [id number] [place] [address] [place] NURSING PROGon 11-19-2022 NURSING PROG Normal [facility] Phosphate SerPl-mCncon 11-19 Phosphate [Mass/Vol] 4.1 mg/dL Normal 2.7-4.8 [facility] Comment on above: Order Comment: Speci men Type: BLOOD SPECIMENOrdering Facility: [facility] Address: [place] [address] Performed By: #### 1 9123-9, 29955-7, 2777-1 ####[facility]ORATORYCLIA [id number] [place] [id number] [place] Basic metabolic 2000 panelon 11-18-2022 Anion gap [Moles/Vol] 10 mmol/L Normal 9-18 [facility] Comment on above: Order Comment: Speci men Type: BLOOD SPECIMENOrdering Facility: [facility] Address: [address] [place] [address] Performed By: #### 2 4321-2 ####[facility] LABORATORYCLIA [id number] [place] [address] [place] Calcium [Mass/Vol] 8.8 mg/dL Normal 8.5-10.2 [facility] Comment on above: Order Comment: Speci men Type: BLOOD SPECIMENOrdering Facility: [facility] Address: [address] [place] [address] Performed By: #### 2 4321-2 ####[facility]ORATORYCLIA [id number] [place] [address] [place] Chloride [Moles/Vol] 105 mmol/L Normal 97-105 [facility] Comment on above: Order Comment: Speci men Type: BLOOD SPECIMENOrdering Facility: [facility] Address: [address] [place] [address] Performed By: #### 2 4321-2 ####[facility]ORATORYCLIA [id number] [place] [address] [place] CO2 [Moles/Vol] 22 mmol/L Normal 22-30 [facility] Comment on above: Order Comment: Speci men Type: BLOOD SPECIMENOrdering Facility: [facility] Address: [address] [place] [address] Performed By: #### 2 4321-2 ####[facility]ORATORYCLIA [id number] [place] [address] [place] Creatinine [Mass/Vol] 0.61 mg/dL Normal 0.58-0.96 [facility] Comment on above: Order Comment: Speci men Type: BLOOD SPECIMENOrdering Facility: [facility] Address: [address] [place] [address] Performed By: #### 2 4321-2 ####[facility]ORATORYCLIA [id number] [place] [address] [place] Creatinine and Glomerular filtration rate.predicted panel (S/P/Bld) 121 mL/min/1.73m??? Normal >=60 [facility] Comment on above: Order Comment: Geraldo marrero Type: BLOOD SPECIMENOrdering Facility: [facility] Address: [address] [place] [address] Result Comment: Jessica mated Glomerular Filtration Rate [...] actual GFR. Performed By: #### 2 4321-2 ####[facility]ORATORYCLIA [id number] [place] [address] [place] Glucose [Mass/Vol] 115 mg/dL High 74-99 [facility] Comment on above: Order Comment: Geraldo marrero Type: BLOOD SPECIMENOrdering Facility: [facility] Address: [address] Result Comment: The [place] Diabetes [employer] (ADA) provides guidance for cutoff [...] Standards of Medical Care in Diabetes 2016, [place] [employer]. Diabetes Care. 2016.39(Suppl 1). Performed By: #### 2 4321-2 ####[facility]ORATORYCLIA [id number] [place] [address] [place] Potassium [Moles/Vol] 4.2 mmol/L Normal 3.7-5.1 [facility] Comment on above: Order Comment: Geraldo marrero Type: BLOOD SPECIMENOrdering Facility: [facility] Address: [address] [place] [address] Performed By: #### 2 4321-2 ####[facility]ORATORYCLIA [id number] [place] [id number] [place] Sodium [Moles/Vol] 137 mmol/L Normal 136-144 [facility] Comment on above: Order Comment: Speci men Type: BLOOD SPECIMENOrdering Facility: [facility] Address: [address] [place] [address] Performed By: #### 2 4321-2 ####[facility]ATORYCLIA [id number] [address] [place] Urea nitrogen [Mass/Vol] 6 mg/dL Low 7-21 [facility] Comment on above: Order Comment: Speci men Type: BLOOD SPECIMENOrdering Facility: [facility] Address: [address] [place] [address] Performed By: #### 2 4321-2 ####[facility]ORATORYCLIA [id number] [address] [place] CASE MGT INIT ASSESon 2022 CASE MGT INIT ASS Normal [facility] CBC panel Auto (Bld)on 11-18 Erythrocyte distribution width (RBC) [Ratio] 13.0 % Normal 11.5-15.0 [facility] Comment on above: Order Comment: Speci men Type: BLOOD SPECIMENOrdering Facility: [facility] Address: [address] [place] [address] Performed By: #### 5 8410-2 ####[facility]ORATORYCLIA [id number] [address] OF [facility] Hematocrit (Bld) [Volume fraction] 35.7 % Low 36.0-46.0 [facility] Comment on above: Order Comment: Speci men Type: BLOOD SPECIMENOrdering Facility: [facility] Address: [address] [place] [address] Performed By: #### 5 8410-2 ####[facility]ATORYCLIA [id number] [address] [place] Hemoglobin (Bld) [Mass/Vol] 12.3 g/dL Normal 11.5-15.5 [facility] Comment on above: Order Comment: Speci men Type: BLOOD SPECIMENOrdering Facility: [facility] Address: [address] [place] [address] Performed By: #### 5 8410-2 ####[facility] LABORATORYCLIA [id number] [address] [place] [facility] MCH (RBC) [Entitic mass] 31.1 pg Normal 26.0-34.0 [facility] Comment on above: Order Comment: Speci men Type: BLOOD SPECIMENOrdering Facility: [facility] Address: [address] [place] [address] Performed By: #### 5 8410-2 ####[facility] LABORATORYCLIA [id number] [address] MCHC (RBC) [Mass/Vol] 34.5 g/dL Normal 30.5-36.0 [facility] Comment on above: Order Comment: Speci men Type: BLOOD SPECIMENOrdering Facility: [facility] Address: [address] [place] [address] Performed By: #### 5 8410-2 ####OSVALDO LABORATORYCLIA [id number] [address] [place] [facility] MCV (RBC) [Entitic vol] 90.2 fL Normal 80.0-100.0 [facility] Comment on above: Order Comment: Speci men Type: BLOOD SPECIMENOrdering Facility: [facility] Address: [address] [address] Performed By: #### 5 8410-2 ####[facility] LABORATORYCLIA [id number] [address] Nucleated RBC (Bld) [#/Vol] 10*3/uL Normal <0.01 [facility] Comment on above: Order Comment: Speci men Type: BLOOD SPECIMENOrdering Facility: [facility] Address: [address] [place] [address] Performed By: #### 5 8410-2 ####[facility] LABORATORYCLIA [id number] [place] [id number] [place] Platelet mean volume (Bld) [Entitic vol] 11.2 fL Normal 9.0-12.7 [facility] Comment on above: Order Comment: Speci men Type: BLOOD SPECIMENOrdering Facility: [facility] Address: [address] [place] [address] Performed By: #### 5 8410-2 ####[facility] LABORATORYCLIA [id number] [place] [address] [place] Platelets (Bld) [#/Vol] 214 10*3/uL Normal 150-400 [facility] Comment on above: Order Comment: Speci men Type: BLOOD SPECIMENOrdering Facility: [facility] Address: [address] [place] [address] Performed By: #### 5 8410-2 ####[facility] LABORATORYCLIA [id number] [place] [address] [place] RBC (Bld) [#/Vol] 3.96 10*6/uL Normal 3.90-5.20 [facility] Comment on above: Order Comment: Speci men Type: BLOOD SPECIMENOrdering Facility: [facility] Address: [address] [place] [address] Performed By: #### 5 8410-2 ####[facility] LABORATORYCLIA [id number] [place] [address] [place] WBC (Bld) [#/Vol] 3.48 10*3/uL Low 3.70-11.00 [facility] Comment on above: Order Comment: Speci men Type: BLOOD SPECIMENOrdering Facility: [facility] Address: [address] [place] [address] Performed By: #### 5 8410-2 ####[facility] LABORATORYCLIA [id number] [address] [place] NURSING PROGon 11-18-2022 NURSING PROG Normal [facility] Urinalysis complete panel (U )on 11-18-2022 Bacteria LM.HPF (Urine sed) [#/Area] Rare Abnormal None Seen [facility] Comment on above: Order Comment: Speci men Type: URINE SPECIMENOrdering Facility: [facility] Address: [address] [place] [address] Performed By: #### 2 4356-8 ####[facility] LABORATORYCLIA [id number] [place] [address] [place] Bilirubin Ql (U) Negative Normal Negative [facility] Comment on above: Order Comment: Speci men Type: URINE SPECIMENOrdering Facility: [facility] Address: [address] [place] [address] Performed By: #### 2 4356-8 ####[facility] LABORATORYCLIA [id number] [address] [place] Clarity (Unsp spec) Clear Normal Clear [facility] Comment on above: Order Comment: Speci men Type: URINE SPECIMENOrdering Facility: [facility] Address: [address] [place] [address] Performed By: #### 2 4356-8 ####[facility] LABORATORYCLIA [id number] [place] [address] [place] Color (U) Colorless Normal Yellow [facility] Comment on above: Order Comment: Speci men Type: URINE SPECIMENOrdering Facility: [facility] Address: [address] [place] [address] Performed By: #### 2 4356-8 ####[facility] LABORATORYCLIA [id number] [address] [place] Epithelial cells LM.HPF (Urine sed) [#/Area] Few Normal [facility] Comment on above: Order Comment: Speci men Type: URINE SPECIMENOrdering Facility: [facility] Address: [address] [place] [address] Performed By: #### 2 4356-8 ####[facility] LABORATORYCLIA [id number] [place] [address] [place] Glucose Test strip (U) [Mass/Vol] Negative Normal Trace, Negative [facility] Comment on above: Order Comment: Speci men Type: URINE SPECIMENOrdering Facility: [facility] Address: [address] [address] Performed By: #### 2 4356-8 ####[facility]ORATORYCLIA [id number] [place] [address] [place] Hemoglobin Ql (U) Negative Normal Negative, Trace [facility] Comment on above: Order Comment: Speci men Type: URINE SPECIMENOrdering Facility: [facility] Address: [address] [address] Performed By: #### 2 4356-8 ####[facility]ORATORYCLIA [id number] [place] [address] [place] Ketones Ql (U) Negative Normal Negative, Trace [facility] Comment on above: Order Comment: Speci men Type: URINE SPECIMENOrdering Facility: [facility] Address: [address] [address] Performed By: #### 2 4356-8 ####[facility]ORATORYCLIA [id number] [place] [address] [place] Leukocyte esterase Test strip Ql (U) Negative Normal Negative, 25 [place]/uL [facility] Comment on above: Order Comment: Speci men Type: URINE SPECIMENOrdering Facility: [facility] Address: [address] [place] [address] Performed By: #### 2 4356-8 ####[facility]ORATORYCLIA [id number] [place] [address] [place] Nitrite Ql (U) Negative Normal Negative [facility] Comment on above: Order Comment: Speci men Type: URINE SPECIMENOrdering Facility: [facility] Address: [address] [place] [address] Performed By: #### 2 4356-8 ####[facility] LABORATORYCLIA [id number] [address] [place] pH (U) 7.5 [pH] Normal 5.0-8.0 [facility] Comment on above: Order Comment: Speci men Type: URINE SPECIMENOrdering Facility: [facility] Address: [address] [place] [address] Performed By: #### 2 4356-8 ####[facility]ORATORYCLIA [id number] [place] [address] [place] [facility] Protein (U) [Mass/Vol] Negative Normal Trace, Negative [facility] Comment on above: Order Comment: Speci men Type: URINE SPECIMENOrdering Facility: [facility] Address: [address] [place] [address] Performed By: #### 2 4356-8 ####[facility]ORATORYCLIA [id number] [address] [place] RBC LM.HPF (Urine sed) [#/Area] 0-3 /HPF Normal 0-3 /HPF [facility] Comment on above: Order Comment: Speci men Type: URINE SPECIMENOrdering Facility: [facility] Address: [address] [place] [address] Performed By: #### 2 4356-8 ####[facility]ORATORYCLIA [id number] [address] [place] Specific gravity (U) [Rel density] 1.007 Normal 1.005-1.030 [facility] Comment on above: Order Comment: Speci men Type: URINE SPECIMENOrdering Facility: [facility] Address: [address] [place] [address] Performed By: #### 2 4356-8 ####[facility] LABORATORYCLIA [id number] [address] [place] Urobilinogen Ql (U) Negative Normal Negative [facility] Comment on above: Order Comment: Speci men Type: URINE SPECIMENOrdering Facility: [facility] Address: [address] [place] [address] Performed By: #### 2 4356-8 ####[facility]ORATORYCLIA [id number] [address] [place] WBC LM.HPF (Urine sed) [#/Area] 0-5 /HPF Normal 0-5 /HPF [facility] Comment on above: Order Comment: Speci men Type: URINE SPECIMENOrdering Facility: [facility] Address: [address] [place] [address] Performed By: #### 2 4356-8 ####[facility]ORATORYCLIA [id number] [place] [address] [place] Bilirubin Ql (U) Negative Normal Negative [facility] Comment on above: Order Comment: Speci men Type: URINE SPECIMENOrdering Facility: [facility] Address: [address] [place] [address] Performed By: #### 2 4356-8 ####[facility]ORATORYCLIA [id number] [place] [address] [place] Clarity (Unsp spec) Clear Normal Clear [facility] Comment on above: Order Comment: Speci men Type: URINE SPECIMENOrdering Facility: [facility] Address: [address] [place] [address] Performed By: #### 2 4356-8 ####[facility] LABORATORYCLIA [id number] [place] [address] [place] Color (U) Colorless Normal Yellow [facility] Comment on above: Order Comment: Speci men Type: URINE SPECIMENOrdering Facility: [facility] Address: [address] [place] [address] Performed By: #### 2 4356-8 ####[facility] LABORATORYCLIA [id number] [place] [address] [place] Epithelial cells LM.HPF (Urine sed) [#/Area] Few Normal [facility] Comment on above: Order Comment: Speci men Type: URINE SPECIMENOrdering Facility: [facility] Address: [address] [place] [address] Performed By: #### 2 4356-8 ####[facility]ORATORYCLIA [id number] [place] [address] [place] Glucose Test strip (U) [Mass/Vol] Negative Normal Trace, Negative [facility] Comment on above: Order Comment: Speci men Type: URINE SPECIMENOrdering Facility: [facility] Address: [address] [address] Performed By: #### 2 4356-8 ####[facility]ORATORYCLIA [id number] [place] [address] [place] Hemoglobin Ql (U) Negative Normal Negative, Trace [facility] Comment on above: Order Comment: Speci men Type: URINE SPECIMENOrdering Facility: [facility] Address: [address] [address] Performed By: #### 2 4356-8 ####[facility] LABORATORYCLIA [id number] [place] [address] [place] Ketones Ql (U) Negative Normal Negative, Trace [facility] Comment on above: Order Comment: Speci men Type: URINE SPECIMENOrdering Facility: [facility] Address: [address] [place] [address] Performed By: #### 2 4356-8 ####[facility] LABORATORYCLIA [id number] [address] [place] Leukocyte esterase Test strip Ql (U) Negative Normal Negative, 25 [place]/uL [facility] Comment on above: Order Comment: Speci men Type: URINE SPECIMENOrdering Facility: [facility] Address: [address] [place] [address] Performed By: #### 2 4356-8 ####[facility] LABORATORYCLIA [id number] [address] [place] Nitrite Ql (U) Negative Normal Negative [facility] Comment on above: Order Comment: Speci men Type: URINE SPECIMENOrdering Facility: [facility] Address: [address] [address] Performed By: #### 2 4356-8 ####[facility]ORATORYCLIA [id number] [address] [place] pH (U) 7.5 [pH] Normal 5.0-8.0 [facility] Comment on above: Order Comment: Speci men Type: URINE SPECIMENOrdering Facility: [facility] Address: [address] [place] [address] Performed By: #### 2 4356-8 ####[facility]ORATORYCLIA [id number] [place] [address] [place] Protein (U) [Mass/Vol] Negative Normal Trace, Negative [facility] Comment on above: Order Comment: Speci men Type: URINE SPECIMENOrdering Facility: [facility] Address: [address] [place] [address] Performed By: #### 2 4356-8 ####[facility]ORATORYCLIA [id number] [place] [address] [place] RBC LM.HPF (Urine sed) [#/Area] 0-3 /HPF Normal 0-3 /HPF [facility] Comment on above: Order Comment: Speci men Type: URINE SPECIMENOrdering Facility: [facility] Address: [address] [place] [address] Performed By: #### 2 4356-8 ####[facility]ORATORYCLIA [id number] [address] Specific gravity (U) [Rel density] 1.006 Normal 1.005-1.030 [facility] Comment on above: Order Comment: Speci men Type: URINE SPECIMENOrdering Facility: [facility] Address: [address] [place] [address] Performed By: #### 2 4356-8 ####[facility]ORATORYCLIA [id number] [address] [place] Urobilinogen Ql (U) Negative Normal Negative [facility] Comment on above: Order Comment: Speci men Type: URINE SPECIMENOrdering Facility: [facility] Address: [address] [place] [address] Performed By: #### 2 4356-8 ####[facility]ORATORYCLIA [id number] [address] [place] WBC LM.HPF (Urine sed) [#/Area] 0-5 /HPF Normal 0-5 /HPF [facility] Comment on above: Order Comment: Speci men Type: URINE SPECIMENOrdering Facility: [facility] Address: [address] [address] Performed By: #### 2 4356-8 ####[facility] LABORATORYCLIA [id number] [place] [id number] [place] ALLIED HEALTHon 11-17-2022 ALLIED HEALTH Normal [facility] CBC W Auto Differential pane l (Bld)on 11-17-2022 Basophils (Bld) [#/Vol] 0.03 10*3/uL Normal <0.11 [facility] Comment on above: Order Comment: Speci men Type: BLOOD SPECIMENOrdering Facility: [facility] Address: [address] [address] Performed By: #### 5 7021-8 ####[facility] LABORATORYCLIA [id number] [place] [address] [place] Basophils/100 WBC (Bld) 0.7 % Normal [facility] Comment on above: Order Comment: Speci men Type: BLOOD SPECIMENOrdering Facility: [facility] Address: [address] [place] [address] Performed By: #### 5 7021-8 ####[facility] LABORATORYCLIA [id number] [place] [address] [place] Differential cell count method Nom (Bld) Auto Normal [facility] Comment on above: Order Comment: Speci men Type: BLOOD SPECIMENOrdering Facility: [facility] Address: [address] [address] Performed By: #### 5 7021-8 ####[facility] LABORATORYCLIA [id number] [place] [address] [place] Eosinophils (Bld) [#/Vol] 0.07 10*3/uL Normal <0.46 [facility] Comment on above: Order Comment: Speci men Type: BLOOD SPECIMENOrdering Facility: [facility] Address: [address] [address] Performed By: #### 5 7021-8 ####[facility] LABORATORYCLIA [id number] [place] [address] [place] Eosinophils/100 WBC (Bld) 1.7 % Normal [facility] Comment on above: Order Comment: Speci men Type: BLOOD SPECIMENOrdering Facility: [facility] Address: [address] [place] [address] Performed By: #### 5 7021-8 ####[facility] LABORATORYCLIA [id number] [place] [address] [place] Erythrocyte distribution width (RBC) [Ratio] 13.2 % Normal 11.5-15.0 [facility] Comment on above: Order Comment: Speci men Type: BLOOD SPECIMENOrdering Facility: [facility] Address: [address] [place] [address] Performed By: #### 5 7021-8 ####[facility] LABORATORYCLIA [id number] [place] [address] [place] Hematocrit (Bld) [Volume fraction] 37.2 % Normal 36.0-46.0 [facility] Comment on above: Order Comment: Speci men Type: BLOOD SPECIMENOrdering Facility: [facility] Address: [address] [address] Performed By: #### 5 7021-8 ####[facility] LABORATORYCLIA [id number] [place] [address] [place] Hemoglobin (Bld) [Mass/Vol] 12.9 g/dL Normal 11.5-15.5 [facility] Comment on above: Order Comment: Speci men Type: BLOOD SPECIMENOrdering Facility: [facility] Address: [address] [address] Performed By: #### 5 7021-8 ####[facility] LABORATORYCLIA [id number] [place] [id number] [place] Immature granulocytes (Bld) [#/Vol] 10*3/uL Normal <0.10 [facility] Comment on above: Order Comment: Speci men Type: BLOOD SPECIMENOrdering Facility: [facility] Address: [address] [place] [address] Performed By: #### 5 7021-8 ####[facility] LABORATORYCLIA [id number] [place] [address] [place] Immature granulocytes/100 WBC (Bld) 0.2 % Normal [facility] Comment on above: Order Comment: Speci men Type: BLOOD SPECIMENOrdering Facility: [facility] Address: [address] [place] [address] Performed By: #### 5 7021-8 ####[facility] LABORATORYCLIA [id number] [place] [address] [place] Lymphocytes (Bld) [#/Vol] 1.81 10*3/uL Normal 1.00-4.00 [facility] Comment on above: Order Comment: Speci men Type: BLOOD SPECIMENOrdering Facility: [facility] Address: [address] [place] [address] Performed By: #### 5 7021-8 ####[facility] LABORATORYCLIA [id number] [address] Lymphocytes/100 WBC (Bld) 44.6 % Normal [facility] Comment on above: Order Comment: Speci men Type: BLOOD SPECIMENOrdering Facility: [facility] Address: [address] [place] [address] Performed By: #### 5 7021-8 ####[facility] LABORATORYCLIA [id number] [place] [address] [place] MCH (RBC) [Entitic mass] 31.1 pg Normal 26.0-34.0 [facility] Comment on above: Order Comment: Speci men Type: BLOOD SPECIMENOrdering Facility: [facility] Address: [address] [place] [address] Performed By: #### 5 7021-8 ####[facility] LABORATORYCLIA [id number] [address] [place] MCHC (RBC) [Mass/Vol] 34.7 g/dL Normal 30.5-36.0 [facility] Comment on above: Order Comment: Speci men Type: BLOOD SPECIMENOrdering Facility: [facility] Address: [address] [place] [address] Performed By: #### 5 7021-8 ####[facility] LABORATORYCLIA [id number] [place] [address] [place] MCV (RBC) [Entitic vol] 89.6 fL Normal 80.0-100.0 [facility] Comment on above: Order Comment: Speci men Type: BLOOD SPECIMENOrdering Facility: [facility] Address: [address] [address] Performed By: #### 5 7021-8 ####[facility] LABORATORYCLIA [id number] [place] [address] [place] Monocytes (Bld) [#/Vol] 0.21 10*3/uL Normal <0.87 [facility] Comment on above: Order Comment: Speci men Type: BLOOD SPECIMENOrdering Facility: [facility] Address: [address] [place] [address] Performed By: #### 5 7021-8 ####[facility] LABORATORYCLIA [id number] [place] [address] [place] Monocytes/100 WBC (Bld) 5.2 % Normal [facility] Comment on above: Order Comment: Speci men Type: BLOOD SPECIMENOrdering Facility: [facility] Address: [address] [place] [address] Performed By: #### 5 7021-8 ####[facility] LABORATORYCLIA [id number] [place] [address] [place] Neutrophils (Bld) [#/Vol] 1.93 10*3/uL Normal 1.45-7.50 [facility] Comment on above: Order Comment: Speci men Type: BLOOD SPECIMENOrdering Facility: [facility] Address: [address] [place] [address] Performed By: #### 5 7021-8 ####[facility] LABORATORYCLIA [id number] [address] [place] Neutrophils/100 WBC (Bld) 47.6 % Normal [facility] Comment on above: Order Comment: Speci men Type: BLOOD SPECIMENOrdering Facility: [facility] Address: [address] [address] Performed By: #### 5 7021-8 ####[facility] LABORATORYCLIA [id number] [place] [id number] [place] Nucleated RBC (Bld) [#/Vol] 10*3/uL Normal <0.01 [facility] Comment on above: Order Comment: Speci men Type: BLOOD SPECIMENOrdering Facility: [facility] Address: [address] [address] Performed By: #### 5 7021-8 ####[facility] LABORATORYCLIA [id number] [place] [address] [place] Nucleated RBC/100 WBC (Bld) [Ratio] 0.0 /100 WBC Normal [facility] Comment on above: Order Comment: Speci men Type: BLOOD SPECIMENOrdering Facility: [facility] Address: [address] [address] Performed By: #### 5 7021-8 ####[facility] LABORATORYCLIA [id number] [place] [address] [place] Platelet mean volume (Bld) [Entitic vol] 11.9 fL Normal 9.0-12.7 [facility] Comment on above: Order Comment: Speci men Type: BLOOD SPECIMENOrdering Facility: [facility] Address: [address] [address] Performed By: #### 5 7021-8 ####[facility] LABORATORYCLIA [id number] [place] [id number] [place] Platelets (Bld) [#/Vol] 85 10*3/uL Low 150-400 [facility] Comment on above: Order Comment: Speci men Type: BLOOD SPECIMENOrdering Facility: [facility] Address: [address] [place] [address] Result Comment: Resu lts may be inaccurate due to the presence of microclots. Performed By: #### 5 7021-8 ####[facility] LABORATORYCLIA [id number] [place] [id number] [place] RBC (Bld) [#/Vol] 4.15 10*6/uL Normal 3.90-5.20 [facility] Comment on above: Order Comment: Speci men Type: BLOOD SPECIMENOrdering Facility: [facility] Address: [address] [place] [address] Performed By: #### 5 7021-8 ####[facility] LABORATORYCLIA [id number] [place] [address] [place] WBC (Bld) [#/Vol] 4.06 10*3/uL Normal 3.70-11.00 [facility] Comment on above: Order Comment: Speci men Type: BLOOD SPECIMENOrdering Facility: [facility] Address: [address] [place] [address] Result Comment: Resu lts may be inaccurate due to the presence of microclots. Performed By: #### 5 7021-8 ####[facility] LABORATORYCLIA [id number] [address] [place] CONSULTon 11-17-2022 CONSULT Normal [facility] CT ABD/PEL W IVCONon 023 CT ABD/PEL W IVCON Normal [facility] Comprehensive metabolic 2000 panelon 11-17-2022 Albumin [Mass/Vol] 4.2 g/dL Normal 3.9-4.9 [facility] Comment on above: Order Comment: Speci men Type: BLOOD SPECIMENOrdering Facility: [facility] Address: [address] [place] [address] Performed By: #### 3 040-3, 78657-3 ####[facility] LABORATORYCLIA [id number] [place] [id number] [place] ALP [Catalytic activity/Vol] 69 U/L Normal 34-123 [facility] Comment on above: Order Comment: Speci men Type: BLOOD SPECIMENOrdering Facility: [facility] Address: [address] [place] [address] Performed By: #### 3 040-3, 26311-2 ####[facility] LABORATORYCLIA [id number] [place] [address] [place] ALT [Catalytic activity/Vol] 22 U/L Normal 7-38 [facility] Comment on above: Order Comment: Speci men Type: BLOOD SPECIMENOrdering Facility: [facility] Address: [address] [address] Performed By: #### 3 -3, 50944-0 ####[facility] LABORATORYCLIA [id number] [place] [address] [place] Anion gap [Moles/Vol] 9 mmol/L Normal 9-18 [facility] Comment on above: Order Comment: Speci men Type: BLOOD SPECIMENOrdering Facility: [facility] Address: [address] [address] Performed By: #### 3 -3, ####[facility] LABORATORYCLIA [id number] [place] [address] [place] AST [Catalytic activity/Vol] 40 U/L High 13-35 [facility] Comment on above: Order Comment: Speci men Type: BLOOD SPECIMENOrdering Facility: [facility] Address: [address] [address] Performed By: #### 3 3, 43329-5 ####[facility] LABORATORYCLIA [id number] [place] [address] [place] Bilirubin [Mass/Vol] 0.4 mg/dL Normal 0.2-1.3 [facility] Comment on above: Order Comment: Speci men Type: BLOOD SPECIMENOrdering Facility: [facility] Address: [address] [address] Performed By: #### 3 -3, 72363-8 ####OSVALDO LABORATORYCLIA [id number] [place] [address] [place] Calcium [Mass/Vol] 8.8 mg/dL Normal 8.5-10.2 [facility] Comment on above: Order Comment: Speci men Type: BLOOD SPECIMENOrdering Facility: [facility] Address: [address] [address] Performed By: #### 3 -3, 44427-5 ####OS[facility] LABORATORYCLIA [id number] [address] Chloride [Moles/Vol] 107 mmol/L High 97-105 [facility] Comment on above: Order Comment: Speci men Type: BLOOD SPECIMENOrdering Facility: [facility] Address: [address] [address] Performed By: #### 3 040-3, 22971-8 ####OSVALDO LABORATORYCLIA [id number] [place] [address] [facility] CO2 [Moles/Vol] 23 mmol/L Normal 22-30 [facility] Comment on above: Order Comment: Speci men Type: BLOOD SPECIMENOrdering Facility: [facility] Address: [address] [place] [address] Performed By: #### 3 040-3, ####OSVALDO LABORATORYCLIA [id number] [address] Creatinine [Mass/Vol] 0.75 mg/dL Normal 0.58-0.96 [facility] Comment on above: Order Comment: Speci men Type: BLOOD SPECIMENOrdering Facility: [facility] Address: [address] [place] [address] Performed By: #### 3 040-3, ####OSVALDO LABORATORYCLIA [id number] [address] Creatinine and Glomerular filtration rate.predicted panel (S/P/Bld) 108 mL/min/1.73m??? Normal >=60 [facility] Comment on above: Order Comment: Speci men Type: BLOOD SPECIMENOrdering Facility: [facility] Address: [address] [place] [address] Result Comment: Jessica mated Glomerular Filtration Rate [...] reflect actual GFR. Performed By: #### 3 ####[facility] LABORATORYCLIA [id number] [place] [address] [place] Glucose [Mass/Vol] 80 mg/dL Normal 74-99 [facility] Comment on above: Order Comment: Speci men Type: BLOOD SPECIMENOrdering Facility: [facility] Address: [address] [place] [address] Result Comment: The [place] Diabetes Association (ADA) provides guidance for cutoff [...] Standards of Medical Care in Diabetes 2016, [place] [employer]. Diabetes Care. 2016.39(Suppl 1). Performed By: #### 3 - ####[facility] LABORATORYCLIA [id number] [place] [address] [place] Potassium [Moles/Vol] 4.3 mmol/L Normal 3.7-5.1 [facility] Comment on above: Order Comment: Speci men Type: BLOOD SPECIMENOrdering Facility: [facility] Address: [address] [address] Performed By: #### 3 - ####[facility] LABORATORYCLIA [id number] [place] [address] [place] Protein [Mass/Vol] 6.9 g/dL Normal 6.3-8.0 [facility] Comment on above: Order Comment: Speci men Type: BLOOD SPECIMENOrdering Facility: [facility] Address: [address] [address] Performed By: #### 3 -, 00767-5 ####[facility] LABORATORYCLIA [id number] [address] Sodium [Moles/Vol] 139 mmol/L Normal 136-144 [facility] Comment on above: Order Comment: Speci men Type: BLOOD SPECIMENOrdering Facility: [facility] Address: [address] [address] Performed By: #### 3 040-3, 37741-7 ####OSVALDO LABORATORYCLIA [id number] [place] [address] [place] [facility] Urea nitrogen [Mass/Vol] 8 mg/dL Normal 7-21 [facility] Comment on above: Order Comment: Speci men Type: BLOOD SPECIMENOrdering Facility: [facility] Address: [address] [address] Performed By: #### 3 040-3, 85718-3 ####OS[facility] LABORATORYCLIA [id number] [place] [address] [facility] ED NOTEon 11-17-2022 ED NOTE HNO ID: [id number] Author: Jayla Jean, DEE Service: ? Author Type: Registered Nurse Type: ED Notes Filed: 11/17/2022 2:00 PM Note Text: Pt sts symptoms she feels like she is going to pass out in WR. Vitals rechecked and DS done Normal [facility] ED PROV NOTEon 11-17-2022 ED PROV NOTE Normal [facility] ED PROV NOTE Normal [facility] ED Triage Noteon 11-17-2022 ED Triage Note Normal [facility] Lipase SerPl-cCncon 11-18-19 23 Lipase [Catalytic activity/Vol] 26 U/L Normal 16-61 [facility] Comment on above: Order Comment: Speci men Type: BLOOD SPECIMENOrdering Facility: [facility] Address: [address] [address] Performed By: #### 3 040-3, 20052-1 ####OSVALDO LABORATORYCLIA [id number] [place] [address] [facility] NURSING PROGon 11-17-2022 NURSING PROG Normal [facility] NURSING PROG Normal [facility] Ambulatory Visit Summaryon 1 Ambulatory Visit Summary Normal [facility] Family Medicine Office/Clini c Noteon 11-16-2022 Family Medicine Office/Clinic Note Normal [facility] Comment on above: Result Comment: Elec tronically Signed By: Jaquan Paula\Date and Time Signed: 11/16/22 10:42 EDT Basic metabolic 2000 panelon 11-12-2022 Anion gap [Moles/Vol] 12 mmol/L Normal 9-18 [facility] Comment on above: Order Comment: Speci men Type: BLOOD SPECIMENOrdering Facility: [facility] Address: [address] [address] Performed By: #### 2 4321-2 ####[facility] LABORATORYCLIA [id number] [place] [address] [place] Calcium [Mass/Vol] 8.8 mg/dL Normal 8.5-10.2 [facility] Comment on above: Order Comment: Speci men Type: BLOOD SPECIMENOrdering Facility: [facility] Address: [address] [address] Performed By: #### 2 4321-2 ####[facility] LABORATORYCLIA [id number] [place] [address] [place] Chloride [Moles/Vol] 104 mmol/L Normal 97-105 [facility] Comment on above: Order Comment: Speci men Type: BLOOD SPECIMENOrdering Facility: [facility] Address: [address] [address] Performed By: #### 2 4321-2 ####[facility] LABORATORYCLIA [id number] [place] [address] [place] CO2 [Moles/Vol] 20 mmol/L Low 22-30 [facility] Comment on above: Order Comment: Speci men Type: BLOOD SPECIMENOrdering Facility: [facility] Address: [address] [address] Performed By: #### 2 4321-2 ####[facility] LABORATORYCLIA [id number] [place] [address] [place] Creatinine [Mass/Vol] 0.62 mg/dL Normal 0.58-0.96 [facility] Comment on above: Order Comment: Geraldo marrero Type: BLOOD SPECIMENOrdering Facility: [facility] Address: [address] [facility] [place] [address] Performed By: #### 2 4321-2 ####[facility] LABORATORYCLIA [id number] [place] [id number] [place] Creatinine and Glomerular filtration rate.predicted panel (S/P/Bld) 121 mL/min/1.73m??? Normal >=60 [facility] Comment on above: Order Comment: Geraldo marrero Type: BLOOD SPECIMENOrdering Facility: [facility] Address: [address] [address] Result Comment: Jessica mated Glomerular Filtration Rate [...] actual GFR. Performed By: #### 2 4321-2 ####[facility] LABORATORYCLIA [id number] [place] [address] [place] Glucose [Mass/Vol] 102 mg/dL High 74-99 [facility] Comment on above: Order Comment: Geraldo elida Type: BLOOD SPECIMENOrdering Facility: [facility] Address: [address] [place] [address] Result Comment: The [place] Diabetes Association (ADA) provides guidance for cutoff [...] Standards of Medical Care in Diabetes 2016, [place] [employer]. Diabetes Care. 2016.39(Suppl 1). Performed By: #### 2 4321-2 ####[facility] LABORATORYCLIA [id number] [place] [address] [place] Potassium [Moles/Vol] 4.2 mmol/L Normal 3.7-5.1 [facility] Comment on above: Order Comment: Speci men Type: BLOOD SPECIMENOrdering Facility: [facility] Address: [address] [place] [address] Performed By: #### 2 4321-2 ####[facility] LABORATORYCLIA [id number] [place] [address] [place] Sodium [Moles/Vol] 136 mmol/L Normal 136-144 [facility] Comment on above: Order Comment: Speci men Type: BLOOD SPECIMENOrdering Facility: [facility] Address: [address] [place] [address] Performed By: #### 2 4321-2 ####[facility] LABORATORYCLIA [id number] [place] [address] [place] Urea nitrogen [Mass/Vol] 8 mg/dL Normal 7-21 [facility] Comment on above: Order Comment: Speci men Type: BLOOD SPECIMENOrdering Facility: [facility] Address: [address] [place] [address] Performed By: #### 2 4321-2 ####[facility] LABORATORYCLIA [id number] [place] [address] [place] CBC W Auto Differential pane l (Bld)on 11-12-2022 Basophils (Bld) [#/Vol] 10*3/uL Normal <0.11 [facility] Comment on above: Order Comment: Speci men Type: BLOOD SPECIMENOrdering Facility: [facility] Address: [address] [place] [address] Performed By: #### 5 7021-8 ####[facility] LABORATORYCLIA [id number] [address] [place] Basophils/100 WBC (Bld) 0.2 % Normal [facility] Comment on above: Order Comment: Speci men Type: BLOOD SPECIMENOrdering Facility: [facility] Address: [address] [place] [address] Performed By: #### 5 7021-8 ####[facility] LABORATORYCLIA [id number] [address] [place] Differential cell count method Nom (Bld) Auto Normal [facility] Comment on above: Order Comment: Speci men Type: BLOOD SPECIMENOrdering Facility: [facility] Address: [address] [address] Performed By: #### 5 7021-8 ####[facility] LABORATORYCLIA [id number] [place] [address] [place] Eosinophils (Bld) [#/Vol] 10*3/uL Normal <0.46 [facility] Comment on above: Order Comment: Speci men Type: BLOOD SPECIMENOrdering Facility: [facility] Address: [address] [place] [address] Performed By: #### 5 7021-8 ####OS[facility] LABORATORYCLIA [id number] [address] [place] Eosinophils/100 WBC (Bld) 0.0 % Normal [facility] Comment on above: Order Comment: Speci men Type: BLOOD SPECIMENOrdering Facility: [facility] Address: [address] [place] [address] Performed By: #### 5 7021-8 ####OS[facility] LABORATORYCLIA [id number] [address] [place] Erythrocyte distribution width (RBC) [Ratio] 12.6 % Normal 11.5-15.0 [facility] Comment on above: Order Comment: Speci men Type: BLOOD SPECIMENOrdering Facility: [facility] Address: [address] [place] [address] Performed By: #### 5 7021-8 ####[facility] LABORATORYCLIA [id number] [address] [place] Hematocrit (Bld) [Volume fraction] 36.9 % Normal 36.0-46.0 [facility] Comment on above: Order Comment: Speci men Type: BLOOD SPECIMENOrdering Facility: [facility] Address: [address] [address] Performed By: #### 5 7021-8 ####[facility] LABORATORYCLIA [id number] [place] [address] [place] Hemoglobin (Bld) [Mass/Vol] 12.8 g/dL Normal 11.5-15.5 [facility] Comment on above: Order Comment: Speci men Type: BLOOD SPECIMENOrdering Facility: [facility] Address: [address] [address] Performed By: #### 5 7021-8 ####[facility] LABORATORYCLIA [id number] [place] [address] [place] Immature granulocytes (Bld) [#/Vol] 0.08 10*3/uL Normal <0.10 [facility] Comment on above: Order Comment: Speci men Type: BLOOD SPECIMENOrdering Facility: [facility] Address: [address] [address] Performed By: #### 5 7021-8 ####[facility] LABORATORYCLIA [id number] [place] [address] [place] Immature granulocytes/100 WBC (Bld) 0.8 % Normal [facility] Comment on above: Order Comment: Speci men Type: BLOOD SPECIMENOrdering Facility: [facility] Address: [address] [address] Performed By: #### 5 7021-8 ####[facility] LABORATORYCLIA [id number] [place] [address] [place] Lymphocytes (Bld) [#/Vol] 1.23 10*3/uL Normal 1.00-4.00 [facility] Comment on above: Order Comment: Speci men Type: BLOOD SPECIMENOrdering Facility: [facility] Address: [address] [address] Performed By: #### 5 7021-8 ####[facility] LABORATORYCLIA [id number] [place] [address] [place] Lymphocytes/100 WBC (Bld) 12.8 % Normal [facility] Comment on above: Order Comment: Speci men Type: BLOOD SPECIMENOrdering Facility: [facility] Address: [address] [address] Performed By: #### 5 7021-8 ####[facility] LABORATORYCLIA [id number] [address] [place] [facility] MCH (RBC) [Entitic mass] 30.4 pg Normal 26.0-34.0 [facility] Comment on above: Order Comment: Speci men Type: BLOOD SPECIMENOrdering Facility: [facility] Address: [address] [address] Performed By: #### 5 7021-8 ####[facility] LABORATORYCLIA [id number] [address] [place] [facility] MCHC (RBC) [Mass/Vol] 34.7 g/dL Normal 30.5-36.0 [facility] Comment on above: Order Comment: Speci men Type: BLOOD SPECIMENOrdering Facility: [facility] Address: [address] [address] Performed By: #### 5 7021-8 ####[facility] LABORATORYCLIA [id number] [address] MCV (RBC) [Entitic vol] 87.6 fL Normal 80.0-100.0 [facility] Comment on above: Order Comment: Speci men Type: BLOOD SPECIMENOrdering Facility: [facility] Address: [address] [address] Performed By: #### 5 7021-8 ####[facility] LABORATORYCLIA [id number] [address] [place] Monocytes (Bld) [#/Vol] 0.42 10*3/uL Normal <0.87 [facility] Comment on above: Order Comment: Speci men Type: BLOOD SPECIMENOrdering Facility: [facility] Address: [address] [address] Performed By: #### 5 7021-8 ####[facility] LABORATORYCLIA [id number] [place] [address] [place] Monocytes/100 WBC (Bld) 4.4 % Normal [facility] Comment on above: Order Comment: Speci men Type: BLOOD SPECIMENOrdering Facility: [facility] Address: [address] [place] [address] Performed By: #### 5 7021-8 ####[facility] LABORATORYCLIA [id number] [place] [address] [place] Neutrophils (Bld) [#/Vol] 7.84 10*3/uL High 1.45-7.50 [facility] Comment on above: Order Comment: Speci men Type: BLOOD SPECIMENOrdering Facility: [facility] Address: [address] [place] [address] Performed By: #### 5 7021-8 ####[facility] LABORATORYCLIA [id number] [place] [address] [place] Neutrophils/100 WBC (Bld) 81.8 % Normal [facility] Comment on above: Order Comment: Speci men Type: BLOOD SPECIMENOrdering Facility: [facility] Address: [address] [place] [address] Performed By: #### 5 7021-8 ####[facility] LABORATORYCLIA [id number] [place] [address] [place] Nucleated RBC (Bld) [#/Vol] 10*3/uL Normal <0.01 [facility] Comment on above: Order Comment: Speci men Type: BLOOD SPECIMENOrdering Facility: [facility] Address: [address] [place] [address] Performed By: #### 5 7021-8 ####[facility] LABORATORYCLIA [id number] [place] [address] [place] Nucleated RBC/100 WBC (Bld) [Ratio] 0.0 /100 WBC Normal [facility] Comment on above: Order Comment: Speci men Type: BLOOD SPECIMENOrdering Facility: [facility] Address: [address] [place] [address] Performed By: #### 5 7021-8 ####[facility] LABORATORYCLIA [id number] [place] [id number] [place] Platelet mean volume (Bld) [Entitic vol] 11.3 fL Normal 9.0-12.7 [facility] Comment on above: Order Comment: Speci men Type: BLOOD SPECIMENOrdering Facility: [facility] Address: [address] [place] [address] Performed By: #### 5 7021-8 ####[facility] LABORATORYCLIA [id number] [place] [address] [place] Platelets (Bld) [#/Vol] 253 10*3/uL Normal 150-400 [facility] Comment on above: Order Comment: Speci men Type: BLOOD SPECIMENOrdering Facility: [facility] Address: [address] [place] [address] Performed By: #### 5 7021-8 ####[facility] LABORATORYCLIA [id number] [place] [address] [place] RBC (Bld) [#/Vol] 4.21 10*6/uL Normal 3.90-5.20 [facility] Comment on above: Order Comment: Speci men Type: BLOOD SPECIMENOrdering Facility: [facility] Address: [address] [place] [address] Performed By: #### 5 7021-8 ####[facility] LABORATORYCLIA [id number] [place] [address] [place] WBC (Bld) [#/Vol] 9.59 10*3/uL Normal 3.70-11.00 [facility] Comment on above: Order Comment: Speci men Type: BLOOD SPECIMENOrdering Facility: [facility] Address: [address] [place] [address] Performed By: #### 5 7021-8 ####[facility] LABORATORYCLIA [id number] [place] [address] [place] CNDSon 11-12-2022 CNDS Normal [facility] CNPNon 11-12-2022 CNPN Normal [facility] NURSING PROGon 11-12-2022 NURSING PROG Normal [facility] NUTRITIONon 11-12-2022 NUTRITION Normal [facility] ANES POSTPROC EVALon 023 ANES POSTPROC EVAL Normal [facility] ANES PRE-OPon 11-11-2022 ANES PRE-OP [facility] BRIEF OP NOTon 11-11-2022 BRIEF OP NOT [facility] ERCPon 11-11-2022 ERCP Normal [facility] NURSING PROGon 11-11-2022 NURSING PROG [facility] OPERATIVE NOon 11-11-2022 OPERATIVE NO [facility] PT EDon 11-11-2022 PT ED [facility] TYPE + SCREENon 11-11-2022 ABO O [facility] Comment on above: Order Comment: Speci men Type: BLOOD SPECIMENOrdering Facility: [facility] Address: [address] [place] [address] Performed By: #### T SCR ####[place] BLOOD BANKCLIA [id number] [address] [place] [facility] HISTORICAL AB SCR STATUS Negative [facility] Comment on above: Order Comment: Speci men Type: BLOOD SPECIMENOrdering Facility: [facility] Address: [address] [place] [address] Performed By: #### T SCR ####[facility] BLOOD BANKCLIA [id number] [address] [place] Rh Nom (Bld) Positive [facility] Comment on above: Order Comment: Speci men Type: BLOOD SPECIMENOrdering Facility: [facility] Address: [address] [place] [address] Performed By: #### T SCR ####[facility] BLOOD BANKCLIA [id number] [address] [place] TYPE AND SCREEN EXPIRATION 11/14/2022 23:59 [facility] Comment on above: Order Comment: Speci men Type: BLOOD SPECIMENOrdering Facility: [facility] Address: [address] [address] Performed By: #### T SCR ####[facility] BLOOD BANKCLIA [id number] [place] [address] [place] XR ERCP READ ONLYon 11-12-19 XR ERCP READ ONLY Normal [facility] CNCOon 11-10-2022 CNCO Letter Text Normal [facility] CNPNon 11-10-2022 CNPN Normal [facility] CNPNon 11-09-2022 CNPN Normal [facility] Population Healthon 11-10-19 Population Health Normal [facility] CNDSon 11-08-2022 CNDS Normal [facility] Basic metabolic 2000 panelon 11-06-2022 Anion gap [Moles/Vol] 8 mmol/L Low 9-18 [facility] Comment on above: Order Comment: Speci men Type: BLOOD SPECIMENOrdering Facility: [facility] Address: [address] [place] [address] Performed By: #### 2 4321-2 ####[facility] HOSPITALIA [id number] [place] [address] [place] Calcium [Mass/Vol] 8.6 mg/dL Normal 8.5-10.2 [facility] Comment on above: Order Comment: Speci men Type: BLOOD SPECIMENOrdering Facility: [facility] Address: [address] [place] [address] Performed By: #### 2 4321-2 ####[facility] HOSPITALIA [id number] [place] [address] [place] Chloride [Moles/Vol] 108 mmol/L High 97-105 [facility] Comment on above: Order Comment: Speci men Type: BLOOD SPECIMENOrdering Facility: [facility] Address: [address] [place] [address] Performed By: #### 2 4321-2 ####[facility] HOSPITALIA [id number] [place] [address] [place] CO2 [Moles/Vol] 24 mmol/L Normal 22-30 [facility] Comment on above: Order Comment: Speci men Type: BLOOD SPECIMENOrdering Facility: [facility] Address: [address] [id number] Performed By: #### 2 4321-2 ####[facility] LABORATORYIA [id number] [place] [address] [place] Creatinine [Mass/Vol] 0.74 mg/dL Normal 0.58-0.96 [facility] Comment on above: Order Comment: Speci men Type: BLOOD SPECIMENOrdering Facility: [facility] Address: [address] Performed By: #### 2 4321-2 ####[facility] LABORATORYCLIA [id number] [place] [address] [place] Creatinine and Glomerular filtration rate.predicted panel (S/P/Bld) 110 mL/min/1.73m??? Normal >=60 [facility] Comment on above: Order Comment: Speci men Type: BLOOD SPECIMENOrdering Facility: [facility] Address: [address] [address] Result Comment: Jessica mated Glomerular Filtration Rate [...] actual GFR. Performed By: #### 2 4321-2 ####[facility] LABORATORYIA [id number] [place] [address] [place] Glucose [Mass/Vol] 82 mg/dL Normal 74-99 [facility] Comment on above: Order Comment: Speci men Type: BLOOD SPECIMENOrdering Facility: [facility] Address: [address] [address] Result Comment: The [place] [employer] (ADA) provides guidance for cutoff [...] Standards of Medical Care in Diabetes 2016, [place] [employer]. Diabetes Care. 2016.39(Suppl 1). Performed By: #### 2 4321-2 ####[facility] LABORATORYCLIA [id number] [place] [address] [place] Potassium [Moles/Vol] 3.9 mmol/L Normal 3.7-5.1 [facility] Comment on above: Order Comment: Geraldo marrero Type: BLOOD SPECIMENOrdering Facility: [facility] Address: [address] [place] [address] Performed By: #### 2 4321-2 ####[facility] HOSPITALIA [id number] [place] [id number] [place] Sodium [Moles/Vol] 140 mmol/L Normal 136-144 [facility] Comment on above: Order Comment: Geraldo marrero Type: BLOOD SPECIMENOrdering Facility: [facility] Address: [address] [place] [address] Performed By: #### 2 4321-2 ####[facility] HOS[facility]ITALIA [id number] [place] [address] [place] Urea nitrogen [Mass/Vol] 8 mg/dL Normal 7-21 [facility] Comment on above: Order Comment: Geraldo marrero Type: BLOOD SPECIMENOrdering Facility: [facility] Address: [address] [address] Performed By: #### 2 4321-2 ####[facility]ORATORYIA [id number] [place] [address] [place] CASE MGT INIT ASSESon 2022 CASE MGT INIT ASSES Normal [facility] CBC panel Auto (Bld)on 11-06 Erythrocyte distribution width (RBC) [Ratio] 13.3 % Normal 11.5-15.0 [facility] Comment on above: Order Comment: Speci men Type: BLOOD SPECIMENOrdering Facility: [facility] Address: [address] [address] Performed By: #### 5 8410-2 ####[facility]ORATORYCLIA [id number] [address] [place] Hematocrit (Bld) [Volume fraction] 34.5 % Low 36.0-46.0 [facility] Comment on above: Order Comment: Speci men Type: BLOOD SPECIMENOrdering Facility: [facility] Address: [address] [address] Performed By: #### 5 8410-2 ####[facility]ITAL[facility] [id number] [place] [address] [place] Hemoglobin (Bld) [Mass/Vol] 11.4 g/dL Low 11.5-15.5 [facility] Comment on above: Order Comment: Speci men Type: BLOOD SPECIMENOrdering Facility: [facility] Address: [address] [address] Performed By: #### 5 8410-2 ####[facility]ORYIA [id number] [place] [address] [place] MCH (RBC) [Entitic mass] 30.8 pg Normal 26.0-34.0 [facility] Comment on above: Order Comment: Speci men Type: BLOOD SPECIMENOrdering Facility: [facility] Address: [address] [address] Performed By: #### 5 8410-2 ####[facility]ORATORYCLIA [id number] [place] [address] [place] MCHC (RBC) [Mass/Vol] 33.0 g/dL Normal 30.5-36.0 [facility] Comment on above: Order Comment: Speci men Type: BLOOD SPECIMENOrdering Facility: [facility] Address: [address] [address] Performed By: #### 5 8410-2 ####[facility]ATORYCLIA [id number] [place] [address] [place] MCV (RBC) [Entitic vol] 93.2 fL Normal 80.0-100.0 [facility] Comment on above: Order Comment: Speci men Type: BLOOD SPECIMENOrdering Facility: [facility] Address: [address] [address] Performed By: #### 5 8410-2 ####[facility] [id number] [address] [place] Nucleated RBC (Bld) [#/Vol] 10*3/uL Normal <0.01 [facility] Comment on above: Order Comment: Speci men Type: BLOOD SPECIMENOrdering Facility: [facility] Address: [address] [place] [address] Performed By: #### 5 8410-2 ####[facility] [id number] [place] [address] [place] Platelet mean volume (Bld) [Entitic vol] 11.3 fL Normal 9.0-12.7 [facility] Comment on above: Order Comment: Speci men Type: BLOOD SPECIMENOrdering Facility: [facility] Address: [address] [place] [address] Performed By: #### 5 8410-2 ####[facility] [id number] [place] [address] [place] Platelets (Bld) [#/Vol] 225 10*3/uL Normal 150-400 [facility] Comment on above: Order Comment: Speci men Type: BLOOD SPECIMENOrdering Facility: [facility] Address: [address] [address] Performed By: #### 5 8410-2 ####[facility] [id number] [place] [address] [place] RBC (Bld) [#/Vol] 3.70 10*6/uL Low 3.90-5.20 [facility] Comment on above: Order Comment: Speci men Type: BLOOD SPECIMENOrdering Facility: [facility] Address: [address] [address] Performed By: #### 5 8410-2 ####[facility] H[facility]ITALIA [id number] [place] [address] [place] WBC (Bld) [#/Vol] 3.98 10*3/uL Normal 3.70-11.00 [facility] Comment on above: Order Comment: Speci men Type: BLOOD SPECIMENOrdering Facility: [facility] Address: [address] [address] Performed By: #### 5 8410-2 ####[facility]ITALIA [id number] [place] [address] [place] CNPNon 11-06-2022 CNPN Normal [facility] CONSULT PROGon 11-06-2022 CONSULT PROG [facility] CONSULT PROG Normal [facility] NM HEPATOBILIARY W EF AND/OR RXon 11-06-2022 NM HEPATOBILIARY W EF AND/OR RX Normal [facility] CBC W Auto Differential pane l (Bld)on 11-05-2022 Basophils (Bld) [#/Vol] 0.03 10*3/uL Normal <0.11 [facility] Comment on above: Order Comment: Speci men Type: BLOOD SPECIMENOrdering Facility: [facility] Address: [address] [address] Performed By: #### 5 7021-8 ####[facility] [id number] [place] [address] [place] Basophils/100 WBC (Bld) 0.6 % Normal [facility] Comment on above: Order Comment: Speci men Type: BLOOD SPECIMENOrdering Facility: [facility] Address: [address] [address] Performed By: #### 5 7021-8 ####[facility]ATORYIA [id number] [place] [address] [place] Differential cell count method Nom (Bld) Auto Normal [facility] Comment on above: Order Comment: Speci men Type: BLOOD SPECIMENOrdering Facility: [facility] Address: [address] [address] Performed By: #### 5 7021-8 ####[facility]ORATORYCLIA [id number] [place] [address] [place] Eosinophils (Bld) [#/Vol] 0.08 10*3/uL Normal <0.46 [facility] Comment on above: Order Comment: Speci men Type: BLOOD SPECIMENOrdering Facility: [facility] Address: [address] [address] Performed By: #### 5 7021-8 ####[facility]ORYIA [id number] [place] [address] [place] Eosinophils/100 WBC (Bld) 1.5 % Normal [facility] Comment on above: Order Comment: Speci men Type: BLOOD SPECIMENOrdering Facility: [facility] Address: [address] [address] Performed By: #### 5 7021-8 ####[facility]ORYIA [id number] [place] [address] [place] Erythrocyte distribution width (RBC) [Ratio] 13.3 % Normal 11.5-15.0 [facility] Comment on above: Order Comment: Speci men Type: BLOOD SPECIMENOrdering Facility: [facility] Address: [address] [address] Performed By: #### 5 7021-8 ####[facility]ORYIA [id number] [address] [place] Hematocrit (Bld) [Volume fraction] 40.5 % Normal 36.0-46.0 [facility] Comment on above: Order Comment: Speci men Type: BLOOD SPECIMENOrdering Facility: [facility] Address: [address] [address] Performed By: #### 5 7021-8 ####[facility]ORATORYCLIA [id number] [place] [address] [place] Hemoglobin (Bld) [Mass/Vol] 13.3 g/dL Normal 11.5-15.5 [facility] Comment on above: Order Comment: Speci men Type: BLOOD SPECIMENOrdering Facility: [facility] Address: [address] [address] Performed By: #### 5 7021-8 ####[facility]ORATORYCLIA [id number] [place] [address] [place] Immature granulocytes (Bld) [#/Vol] 10*3/uL Normal <0.10 [facility] Comment on above: Order Comment: Speci men Type: BLOOD SPECIMENOrdering Facility: [facility] Address: [address] [address] Performed By: #### 5 7021-8 ####[facility]ATORYCLIA [id number] [place] [address] [place] Immature granulocytes/100 WBC (Bld) 0.4 % Normal [facility] Comment on above: Order Comment: Speci men Type: BLOOD SPECIMENOrdering Facility: [facility] Address: [address] [address] Performed By: #### 5 7021-8 ####[facility]ORYIA [id number] [place] [address] [place] Lymphocytes (Bld) [#/Vol] 2.53 10*3/uL Normal 1.00-4.00 [facility] Comment on above: Order Comment: Speci men Type: BLOOD SPECIMENOrdering Facility: [facility] Address: [address] [address] Performed By: #### 5 7021-8 ####[facility]ORYIA [id number] [place] [address] [place] Lymphocytes/100 WBC (Bld) 48.5 % Normal [facility] Comment on above: Order Comment: Speci men Type: BLOOD SPECIMENOrdering Facility: [facility] Address: [address] [address] Performed By: #### 5 7021-8 ####[facility]ORYIA [id number] [address] MCH (RBC) [Entitic mass] 30.4 pg Normal 26.0-34.0 [facility] Comment on above: Order Comment: Speci men Type: BLOOD SPECIMENOrdering Facility: [facility] Address: [address] [address] Performed By: #### 5 7021-8 ####[facility]ITALIA [id number] [address] [place] MCHC (RBC) [Mass/Vol] 32.8 g/dL Normal 30.5-36.0 [facility] Comment on above: Order Comment: Speci men Type: BLOOD SPECIMENOrdering Facility: [facility] Address: [address] [place] [address] Performed By: #### 5 7021-8 ####[facility] [id number] [address] [place] MCV (RBC) [Entitic vol] 92.7 fL Normal 80.0-100.0 [facility] Comment on above: Order Comment: Speci men Type: BLOOD SPECIMENOrdering Facility: [facility] Address: [address] [place] [address] Performed By: #### 5 7021-8 ####[facility] [id number] [address] [place] Monocytes (Bld) [#/Vol] 0.30 10*3/uL Normal <0.87 [facility] Comment on above: Order Comment: Speci men Type: BLOOD SPECIMENOrdering Facility: [facility] Address: [address] [place], [place] [address] Performed By: #### 5 7021-8 ####[facility]ORYIA [id number] [address] [place] Monocytes/100 WBC (Bld) 5.7 % Normal [facility] Comment on above: Order Comment: Speci men Type: BLOOD SPECIMENOrdering Facility: [facility] Address: [address] [address] Performed By: #### 5 7021-8 ####[facility]ORATORYCLIA [id number] [place] [address] [place] Neutrophils (Bld) [#/Vol] 2.26 10*3/uL Normal 1.45-7.50 [facility] Comment on above: Order Comment: Speci men Type: BLOOD SPECIMENOrdering Facility: [facility] Address: [address] [address] Performed By: #### 5 7021-8 ####[facility]ORYIA [id number] [place] [address] [place] Neutrophils/100 WBC (Bld) 43.3 % Normal [facility] Comment on above: Order Comment: Speci men Type: BLOOD SPECIMENOrdering Facility: [facility] Address: [address] [address] Performed By: #### 5 7021-8 ####[facility]ORYIA [id number] [place] [address] [place] Nucleated RBC (Bld) [#/Vol] 10*3/uL Normal <0.01 [facility] Comment on above: Order Comment: Speci men Type: BLOOD SPECIMENOrdering Facility: [facility] Address: [address] [address] Performed By: #### 5 7021-8 ####[facility]ORATORYCLIA [id number] [place] [address] [place] Nucleated RBC/100 WBC (Bld) [Ratio] 0.0 /100 WBC Normal [facility] Comment on above: Order Comment: Speci men Type: BLOOD SPECIMENOrdering Facility: [facility] Address: [address] [address] Performed By: #### 5 7021-8 ####[facility]ATORYCLIA [id number] [place] [address] [place] Platelet mean volume (Bld) [Entitic vol] 11.4 fL Normal 9.0-12.7 [facility] Comment on above: Order Comment: Speci men Type: BLOOD SPECIMENOrdering Facility: [facility] Address: [address] [address] Performed By: #### 5 7021-8 ####[facility]ORATORYCLIA [id number] [place] [address] [place] Platelets (Bld) [#/Vol] 207 10*3/uL Normal 150-400 [facility] Comment on above: Order Comment: Speci men Type: BLOOD SPECIMENOrdering Facility: [facility] Address: [address] [address] Performed By: #### 5 7021-8 ####[facility] H[facility]PITALIA [id number] [place] [address] [place] RBC (Bld) [#/Vol] 4.37 10*6/uL Normal 3.90-5.20 [facility] Comment on above: Order Comment: Speci men Type: BLOOD SPECIMENOrdering Facility: [facility] Address: [address] [address] Performed By: #### 5 7021-8 ####[facility] H[facility]ITALIA [id number] [place] [address] [place] WBC (Bld) [#/Vol] 5.22 10*3/uL Normal 3.70-11.00 [facility] Comment on above: Order Comment: Speci men Type: BLOOD SPECIMENOrdering Facility: [facility] Address: [address] [place] [address] Performed By: #### 5 7021-8 ####[facility]ITALIA [id number] [place] [address] [place] CNPNon 11-05-2022 CNPN Normal [facility] CONSULTon 11-05-2022 CONSULT Normal [facility] CONSULT Normal [facility] Comprehensive metabolic 2000 panelon 11-05-2022 Albumin [Mass/Vol] 4.2 g/dL Normal 3.9-4.9 [facility] Comment on above: Order Comment: Speci men Type: BLOOD SPECIMENOrdering Facility: [facility] Address: [address] [address] Performed By: #### 2 4323-8, 3040-3 ####[facility]ORATORYCLIA [id number] [place] [address] [place] ALP [Catalytic activity/Vol] 71 U/L Normal 34-123 [facility] Comment on above: Order Comment: Speci men Type: BLOOD SPECIMENOrdering Facility: [facility] Address: [address] [address] Performed By: #### 2 4323-8, 0-3 ####[facility]ORATORYCLIA [id number] [place] [address] [place] ALT [Catalytic activity/Vol] 15 U/L Normal 7-38 [facility] Comment on above: Order Comment: Speci men Type: BLOOD SPECIMENOrdering Facility: [facility] Address: [address] [address] Performed By: #### 2 4323-8, 0-3 ####[facility]ORATORYCLIA [id number] [place] [address] [place] Anion gap [Moles/Vol] 12 mmol/L Normal 9-18 [facility] Comment on above: Order Comment: Speci men Type: BLOOD SPECIMENOrdering Facility: [facility] Address: [address] [address] Performed By: #### 2 4323-8, 3040-3 ####[facility]ATORYCLIA [id number] [place] [address] [place] AST [Catalytic activity/Vol] 26 U/L Normal 13-35 [facility] Comment on above: Order Comment: Speci men Type: BLOOD SPECIMENOrdering Facility: [facility] Address: [address] [address] Performed By: #### 2 4323-8, 3039-3 ####[facility]ORATORYCLIA [id number] [place] [address] [place] Bilirubin [Mass/Vol] 0.4 mg/dL Normal 0.2-1.3 [facility] Comment on above: Order Comment: Speci men Type: BLOOD SPECIMENOrdering Facility: [facility] Address: [address] [address] Performed By: #### 2 4323-8, 3039-3 ####[facility]ORATORYCLIA [id number] [place] [address] [place] Calcium [Mass/Vol] 8.6 mg/dL Normal 8.5-10.2 [facility] Comment on above: Order Comment: Speci men Type: BLOOD SPECIMENOrdering Facility: [facility] Address: [address] [place] [address] Performed By: #### 2 4323-8, 3 ####[facility] H[facility]ITALIA [id number] [place] [address] [place] Chloride [Moles/Vol] 107 mmol/L High 97-105 [facility] Comment on above: Order Comment: Speci men Type: BLOOD SPECIMENOrdering Facility: [facility] Address: [address] [place] [address] Performed By: #### 2 4323-8, 3 ####[facility]ATORYCLIA [id number] [place] [address] [place] CO2 [Moles/Vol] 22 mmol/L Normal 22-30 [facility] Comment on above: Order Comment: Speci men Type: BLOOD SPECIMENOrdering Facility: [facility] Address: [address] [place] [address] Performed By: #### 2 4323-8, 3039-3 ####[facility]ORYIA [id number] [place] [address] [place] Creatinine [Mass/Vol] 0.87 mg/dL Normal 0.58-0.96 [facility] Comment on above: Order Comment: Geraldo marrero Type: BLOOD SPECIMENOrdering Facility: [facility] Address: [address] [id number] Performed By: #### 2 4323-8, 3040-3 ####[facility]ORATORYCLIA [id number] [place] [address] [place] Creatinine and Glomerular filtration rate.predicted panel (S/P/Bld) 90 mL/min/1.73m??? Normal >=60 [facility] Comment on above: Order Comment: Geraldo marrero Type: BLOOD SPECIMENOrdering Facility: [facility] Address: [address] Result Comment: Jessica mated Glomerular Filtration [...] GFR. Performed By: #### 2 4323-8, 3040-3 ####[facility]ORATORYCLIA [id number] [place] [address] [place] Glucose [Mass/Vol] 87 mg/dL Normal 74-99 [facility] Comment on above: Order Comment: Geraldo marrero Type: BLOOD SPECIMENOrdering Facility: [facility] Address: [address] Result Comment: The [place] [employer] (ADA) provides guidance for cutoff [...] Standards of Medical Care in Diabetes 2016, [place] [employer]. Diabetes Care. 2016.39(Suppl 1). Performed By: #### 2 4323-8, 0-3 ####[facility]ORATORYCLIA [id number] [place] [address] [place] Potassium [Moles/Vol] 3.5 mmol/L Low 3.7-5.1 [facility] Comment on above: Order Comment: Speci men Type: BLOOD SPECIMENOrdering Facility: [facility] Address: [address] [address] Performed By: #### 2 4323-8, 0-3 ####[facility] HOS[facility]ITALIA [id number] [place] [address] [place] Protein [Mass/Vol] 6.6 g/dL Normal 6.3-8.0 [facility] Comment on above: Order Comment: Speci men Type: BLOOD SPECIMENOrdering Facility: [facility] Address: [address] [address] Performed By: #### 2 4323-8, 3039-3 ####[facility] HOSPITALIA [id number] [place] [address] [place] Sodium [Moles/Vol] 141 mmol/L Normal 136-144 [facility] Comment on above: Order Comment: Speci men Type: BLOOD SPECIMENOrdering Facility: [facility] Address: [address] [address] Performed By: #### 2 4323-8, 3039-3 ####[facility]ORATORYCLIA [id number] [place] [address] [place] Urea nitrogen [Mass/Vol] 9 mg/dL Normal 7-21 [facility] Comment on above: Order Comment: Speci men Type: BLOOD SPECIMENOrdering Facility: [facility] Address: [address] [address] Performed By: #### 2 4323-8, 0-3 ####[facility]ORATORYCLIA [id number] [place] [address] [place] ECG COMPLETEon 11-05-2022 ECG COMPLETE Normal [facility] ED NOTEon 11-05-2022 ED NOTE HNO ID: [id number] Author: Joanne Mario RN Service: ? Author Type: Registered Nurse Type: ED Notes Filed: 11/05/2022 1:56 PM Note Text: Attempt to call report, Nurse taking patient is ROHIT. Will return call when nurse available. Normal [facility] ED NOTE HNO ID: [id number] Author: Joanne Mario RN Service: ? Author Type: Registered Nurse Type: ED Notes Filed: 11/05/2022 1:28 PM Note Text: Patient refused all daily meds but reglan due to nausea. Normal [facility] ED PROV NOTEon 11-05-2022 ED PROV NOTE Normal [facility] HISTORY PHYSICALon HISTORY PHYSICAL Normal [facility] pital [facility] 11-06-19 Lipase [Catalytic activity/Vol] 38 U/L Normal 16-61 [facility] Comment on above: Order Comment: Speci men Type: BLOOD SPECIMENOrdering Facility: [facility] Address: [address] [place] [phone] Performed By: #### 2 4323-8, 3040-3 ####[facility] LABORATORYCLIA [id number] [facility] [address] [place] NURSING PROGon 11-05-2022 NURSING PROG Normal [facility] XR ABD 2V SUPINE W UPR/DECUB /CTLon 11-05-2022 XR ABD 2V SUPINE W UPR/DECUB/CTL [facility] 25(OH)D3 SerP-ncon 2022 25-hydroxyvitamin D3 [Mass/Vol] 29.0 ng/mL Low 31.0-80.0 [facility] Comment on above: Order Comment: Speci men Type: BLOOD SPECIMENOrdering Facility: [facility] Address: [address] [place], [place] [phone] Result Comment: Clas sification of 25 [place] Vitamin D status:Deficiency/Insufficiency: < or = 30 ng/ml.Sufficiency/Optimal Levels: 31-80 ng/mLToxicity: > 100 ng/mL.Test performed by chemiluminescent immunoassay. Performed By: #### 1 989-3 ####[facility] [id number] [place] [address] [place] Amylase SerPl-cCncon 023 Amylase [Catalytic activity/Vol] 40 U/L Normal 30-104 [facility] Comment on above: Order Comment: Speci men Type: BLOOD SPECIMENOrdering Facility: [facility] Address: [address] [place] [address] Performed By: #### 1 798-8, 2731-8, 2284-8, 2132-9 ####[facility] [id number] [place] CBC panel Auto (Bld)on 11-04 Erythrocyte distribution width (RBC) [Ratio] 13.2 % Normal 11.5-15.0 [facility] Comment on above: Order Comment: Speci men Type: BLOOD SPECIMENOrdering Facility: [facility] Address: [address] [place] [address] Performed By: #### 5 8410-2 ####[facility] [id number] [place] [address] [place] Hematocrit (Bld) [Volume fraction] 40.5 % Normal 36.0-46.0 [facility] Comment on above: Order Comment: Speci men Type: BLOOD SPECIMENOrdering Facility: [facility] Address: [address] [place] [address] Performed By: #### 5 8410-2 ####[facility] [id number] [place] [address] [place] Hemoglobin (Bld) [Mass/Vol] 13.6 g/dL Normal 11.5-15.5 [facility] Comment on above: Order Comment: Speci men Type: BLOOD SPECIMENOrdering Facility: [facility] Address: [address] Performed By: #### 5 8410-2 ####[facility] [id number] [address] MCH (RBC) [Entitic mass] 30.7 pg Normal 26.0-34.0 [facility] Comment on above: Order Comment: Speci men Type: BLOOD SPECIMENOrdering Facility: [facility] Address: [address] Performed By: #### 5 8410-2 ####[facility] [id number] [address] [place] [facility] MCHC (RBC) [Mass/Vol] 33.6 g/dL Normal 30.5-36.0 [facility] Comment on above: Order Comment: Speci men Type: BLOOD SPECIMENOrdering Facility: [facility] Address: [address] [place], [place] [address] Performed By: #### 5 8410-2 ####[facility] [id number] [address] [place] MCV (RBC) [Entitic vol] 91.4 fL Normal 80.0-100.0 [facility] Comment on above: Order Comment: Speci men Type: BLOOD SPECIMENOrdering Facility: [facility] Address: [address] [place] [address] Performed By: #### 5 8410-2 ####[facility] [id number] [address] [place] [facility] Nucleated RBC (Bld) [#/Vol] 10*3/uL Normal <0.01 [facility] Comment on above: Order Comment: Speci men Type: BLOOD SPECIMENOrdering Facility: [facility] Address: [address] [place], [place] [address] Performed By: #### 5 8410-2 ####[facility] [id number] [place] [address] [place] Platelet mean volume (Bld) [Entitic vol] 12.1 fL Normal 9.0-12.7 [facility] Comment on above: Order Comment: Speci men Type: BLOOD SPECIMENOrdering Facility: [facility] Address: [address] [place], [place] [address] Performed By: #### 5 8410-2 ####[facility] [id number] [place] [address] [place] Platelets (Bld) [#/Vol] 313 10*3/uL Normal 150-400 [facility] Comment on above: Order Comment: Speci men Type: BLOOD SPECIMENOrdering Facility: [facility] Address: [address] [place] [address] Performed By: #### 5 8410-2 ####[facility] [id number] [place] [address] [place] RBC (Bld) [#/Vol] 4.43 10*6/uL Normal 3.90-5.20 [facility] Comment on above: Order Comment: Speci men Type: BLOOD SPECIMENOrdering Facility: [facility] Address: [address] [place], [place] [address] Performed By: #### 5 8410-2 ####[facility] [id number] [place] [address] [place] WBC (Bld) [#/Vol] 6.69 10*3/uL Normal 3.70-11.00 [facility] Comment on above: Order Comment: Speci men Type: BLOOD SPECIMENOrdering Facility: [facility] Address: [address] [place], [place] [address] Performed By: #### 5 8410-2 ####[facility] [id number] [place] [address] [place] CNCOon 09-20-2023 CNCO Letter Text Normal [facility] CNOVon 11-04-2022 CNOV Normal [facility] Comprehensive metabolic 2000 panelon 11-04-2022 Albumin [Mass/Vol] 4.3 g/dL Normal 3.9-4.9 [facility] Comment on above: Order Comment: Speci men Type: BLOOD SPECIMENOrdering Facility: [facility] Address: [address] [place], [place] [address] Performed By: #### 5 0190-8, 3040-3, 98358-8, 2276-4 ####[facility] [id number] [place] [address] [place] ALP [Catalytic activity/Vol] 69 U/L Normal 34-123 [facility] Comment on above: Order Comment: Speci men Type: BLOOD SPECIMENOrdering Facility: [facility] Address: [address] [place], [place] [address] Performed By: #### 5 0190-8, 3040-3, 70386-0, 6-4 ####[facility] [id number] [place] [address] [place] ALT [Catalytic activity/Vol] 16 U/L Normal 7-38 [facility] Comment on above: Order Comment: Speci men Type: BLOOD SPECIMENOrdering Facility: [facility] Address: [address] [place], [place] [address] Performed By: #### 5 0190-8, 3040-3, 24300-6, 2276-4 ####[facility] [id number] [place] [address] [place] Anion gap [Moles/Vol] 13 mmol/L Normal 9-18 [facility] Comment on above: Order Comment: Speci men Type: BLOOD SPECIMENOrdering Facility: [facility] Address: [address] [place], [place] [address] Performed By: #### 5 0190-8, 3040-3, 71276-4, 2275-4 ####[facility] [id number] [place] [address] [place] AST [Catalytic activity/Vol] 25 U/L Normal 13-35 [facility] Comment on above: Order Comment: Speci men Type: BLOOD SPECIMENOrdering Facility: [facility] Address: [address] [place] [address] Performed By: #### 5 0190-8, 3040-3, 68980-5, 2275-4 ####[facility] [id number] [place] [address] [place] Bilirubin [Mass/Vol] 0.3 mg/dL Normal 0.2-1.3 [facility] Comment on above: Order Comment: Speci men Type: BLOOD SPECIMENOrdering Facility: [facility] Address: [address] [place] [address] Performed By: #### 5 0190-8, 3040-3, 04444-6, 4 ####[facility] [id number] [place] [address] [place] Calcium [Mass/Vol] 9.1 mg/dL Normal 8.5-10.2 [facility] Comment on above: Order Comment: Speci men Type: BLOOD SPECIMENOrdering Facility: [facility] Address: [address] [place], [place] [address] Performed By: #### 5 0190-8, 3040-3, 41382-3, 4 ####[facility] [id number] [place] [address] [place] Chloride [Moles/Vol] 105 mmol/L Normal 97-105 [facility] Comment on above: Order Comment: Speci men Type: BLOOD SPECIMENOrdering Facility: [facility] Address: [address] [place], [place] [address] Performed By: #### 5 0190-8, 3040-3, 08177-5, 6-4 ####[facility] [id number] [place] [address] [place] CO2 [Moles/Vol] 19 mmol/L Low 22-30 [facility] Comment on above: Order Comment: Speci men Type: BLOOD SPECIMENOrdering Facility: [facility] Address: [address] [place] [address] Performed By: #### 5 0190-8, 3040-3, 30694-8, 2275-4 ####[facility] [id number] [place] [address] [place] Creatinine [Mass/Vol] 0.77 mg/dL Normal 0.58-0.96 [facility] Comment on above: Order Comment: Speci men Type: BLOOD SPECIMENOrdering Facility: [facility] Address: [address] [place] [address] Performed By: #### 5 0190-8, 3040-3, 37888-4, 4 ####[facility] [id number] [address] [place] Creatinine and Glomerular filtration rate.predicted panel (S/P/Bld) 105 mL/min/1.73m??? Normal >=60 [facility] Comment on above: Order Comment: Speci men Type: BLOOD SPECIMENOrdering Facility: [facility] Address: [address] [place] [address] Result Comment: Jessica mated Glomerular Filtration Rate [...] GFR. Performed By: #### 5 0190-8, 3040-3, 18443-4, 2275-4 ####[facility] [id number] [place] [address] [place] Glucose [Mass/Vol] 224 mg/dL High 74-99 [facility] Comment on above: Order Comment: Speci men Type: BLOOD SPECIMENOrdering Facility: [facility] Address: [address] [place], [place] [address] Result Comment: The [place] [employer] (ADA) provides guidance for cutoff [...] Standards of Medical Care in Diabetes 2016, [place] [employer]. Diabetes Care. 2016.39(Suppl 1). Performed By: #### 5 0190-8, 3040-3, 21642-4, 2276-4 ####[facility] [id number] [place] [address] [place] Potassium [Moles/Vol] 3.7 mmol/L Normal 3.7-5.1 [facility] Comment on above: Order Comment: Speci men Type: BLOOD SPECIMENOrdering Facility: [facility] Address: [address] [place] [address] Performed By: #### 5 0190-8, 3040-3, 69562-5, 2276-4 ####[facility] [id number] [place] [address] [place] Protein [Mass/Vol] 6.9 g/dL Normal 6.3-8.0 [facility] Comment on above: Order Comment: Speci men Type: BLOOD SPECIMENOrdering Facility: [facility] Address: [address] [place] [address] Performed By: #### 5 0190-8, 3040-3, 22872-5, 2276-4 ####[facility] [id number] [place] [address] [place] Sodium [Moles/Vol] 137 mmol/L Normal 136-144 [facility] Comment on above: Order Comment: Speci men Type: BLOOD SPECIMENOrdering Facility: [facility] Address: [address] [place] [address] Performed By: #### 5 0190-8, 3040-3, 72061-1, 6-4 ####[facility] [id number] [place] [address] [place] Urea nitrogen [Mass/Vol] 9 mg/dL Normal 7-21 [facility] Comment on above: Order Comment: Speci men Type: BLOOD SPECIMENOrdering Facility: [facility] Address: [address] [place] [address] Performed By: #### 5 0190-8, 3040-3, 60530-4, 6-4 ####[facility] [id number] [place] [address] [place] Ferritin SerPl-mCncon 2022 Ferritin [Mass/Vol] 13.2 ng/mL Low 14.7-205.1 [facility] Comment on above: Order Comment: Speci men Type: BLOOD SPECIMENOrdering Facility: [facility] Address: [address] [place], [place] [address] Performed By: #### 5 0190-8, 3040-3, 71236-7, 6-4 ####[facility] [id number] [place] [address] [place] Folate SerPl-mCncon 11-05-19 Folate [Mass/Vol] 9.3 ng/mL Normal >4.7 [facility] Comment on above: Order Comment: Speci men Type: BLOOD SPECIMENOrdering Facility: [facility] Address: [address] [place] [place] [address] Performed By: #### 1 798-8, 2731-8, 2284-8, 2132-9 ####[facility] [id number] [place] [address] [place] Iron and Iron binding capaci ty panelon 11-04-2022 Iron [Mass/Vol] 52 ug/dL Normal 41-186 [facility] Comment on above: Order Comment: Speci men Type: BLOOD SPECIMENOrdering Facility: [facility] Address: [address] [place] [address] Performed By: #### 5 0190-8, 3040-3, 65613-3, 6-4 ####[facility] [id number] [place] [address] [place] Iron binding capacity [Mass/Vol] 348 ug/dL Normal 232-386 [facility] Comment on above: Order Comment: Speci men Type: BLOOD SPECIMENOrdering Facility: [facility] Address: [address] [place] [address] Performed By: #### 5 0190-8, 3040-3, 50742-8, 6-4 ####[facility] [id number] [place] [address] [place] Iron/TIBC [Molar ratio] 14.9 % Low 15.0-57.0 [facility] Comment on above: Order Comment: Speci men Type: BLOOD SPECIMENOrdering Facility: [facility] Address: [address] [place] [address] Performed By: #### 5 0190-8, 3040-3, 80674-0, 6-4 ####[facility] [id number] [place] [id number] [place] Lipase SerPl-cCncon 11-05-19 23 Lipase [Catalytic activity/Vol] 35 U/L Normal 16-61 [facility] Comment on above: Order Comment: Speci men Type: BLOOD SPECIMENOrdering Facility: [facility] Address: [address] [place] [address] Performed By: #### 5 0190-8, 3040-3, 87973-1, 2276-4 ####[facility] [id number] [place] [address] [place] PTH-Intact SerPl-ncon 10-17 Parathyrin.intact [Mass/Vol] 27 pg/mL Normal 15-65 [facility] Comment on above: Order Comment: Speci men Type: BLOOD SPECIMENOrdering Facility: [facility] Address: [address] [place] [address] Performed By: #### 1 798-8, 2731-8, 2284-8, 2132-9 ####[facility] [id number] [place] [address] [place] US ABD RIGHT UPPER QUADRANTo n 11-04-2022 US ABD RIGHT UPPER QUADRANT Normal [facility] VITAMIN B1 (THIAMINE), WHOLE BLOODon 11-04-2022 Thiamine (Bld) [Moles/Vol] 165.0 nmol/L Normal 84.3-213.3 [facility] Comment on above: Order Comment: Speci men Type: BLOOD SPECIMENOrdering Facility: [facility] Address: [address] [place] [address] Result Comment: This assay measures the concentration of thiamine diphosphate (TDP), the primary active form of vitamin B1. Approximately 90 percent of vitamin B1 present in whole blood is TDP. Thiamine and thiamine monophosphate, which comprise the remaining 10 percent, are not measured.This test was developed and its performance characteristics determined by [facility]'s Lucie Harmon [facility] Pathology and Laboratory Medicine [place] ([facility]). It has not been cleared or approved by the FDA. [facility] is regulated under CLIA as qualified to perform high-complexity testing. This test is used for clinical purposes. It should not be regarded as investigational or for research. Performed By: #### B 1WB ####[facility] [id number] [place] [address] [place] Vit A SerPl-mCncon 3 Retinol [Mass/Vol] 0.44 mg/L Normal 0.30-1.20 [facility] Comment on above: Order Comment: Speci men Type: BLOOD SPECIMENOrdering Facility: [facility] Address: [address] [place] [address] Result Comment: This test was developed and its performance characteristics determined by [facility] Pathology and Laboratory Medicine [place] ([facility]). It has not been cleared or approved by the FDA. [facility] is regulated under CLIA as qualified to perform high-complexity testing. This test is used for clinical purposes. It should not be regarded as investigational or for research. Performed By: #### 2 923-1 ####[facility] [id number] [place] [address] [place] Vit B12 SerPl-mCncon 023 Cobalamin (Vitamin B12) [Mass/Vol] 1018 pg/mL Normal 232-1245 [facility] Comment on above: Order Comment: Speci men Type: BLOOD SPECIMENOrdering Facility: [facility] Address: [address] [place] [address] Performed By: #### 1 798-8, 2731-8, 2284-8, 2132-9 ####[facility] [id number] [place] [address] [place] Zinc SerPl-mCncon 11-04-2022 Zinc [Mass/Vol] 51 ug/dL Low 60-120 [facility] Comment on above: Order Comment: Speci men Type: BLOOD SPECIMENOrdering Facility: [facility] Address: [address] [place] [address] Result Comment: This test was developed and its performance characteristics determined by [facility] Pathology and Laboratory Medicine [place] ([facility]). It has not been cleared or approved by the FDA. [facility] is regulated under CLIA as qualified to perform high-complexity testing. This test is used for clinical purposes. It should not be regarded as investigational or for research. Performed By: #### 5 763-8 ####[facility] [id number] [address] [address] [facility] Ambulatory Visit Summaryon 0 11-03-2022 Ambulatory Visit Summary Normal [address] [place] [address]- \.br\ Medications\.br\ What How Much When Why [...] Metabolic syndrome\.br\ PCOS- polycystic ovary syndrome\.br\ \.br\ [facility] Family Medicine Office/Clini c Noteon 11-03-2022 Family Medicine Office/Clinic Note Normal [facility] Comment on above: Result Comment: Elec tronically Signed By: Jaquan Paula\.br\Date and Time Signed: 11/03/22 11:43 EDT Provider Letteron 11-03-2022 Provider Letter Prabhakar Salvador [facility] CBCon 11-02-2022 ABSOLUTE BAS 0.0 10*3/uL Normal 0.0-0.2 [facility] Comment on above: Performed By: #### A CBC, LIPA2, CMPF #### Testing performed at [address] [address] ABSOLUTE EOS 0.0 10*3/uL Normal 0.0-0.7 [facility] Comment on above: Performed By: #### A CBC, LIPA2, CMPF #### Testing performed at [address] [address] ABSOLUTE NEUTROPHIL COUNT 3.6 10*3/uL Normal 1.4-6.5 [facility] Comment on above: Performed By: #### A CBC, LIPA2, CMPF #### Testing performed at [address] [address] Basophils/100 WBC (Bld) 0.3 % Normal 0.0-2.0 [facility] Comment on above: Performed By: #### A CBC, LIPA2, CMPF #### Testing performed at [address] [address] DTYPE AUTO DIFF Normal [facility] Comment on above: Performed By: #### A CBC, LIPA2, CMPF #### Testing performed at [address] [address] Eosinophils/100 WBC (Bld) 0.1 % Normal 0.0-11.0 [facility] Comment on above: Performed By: #### A CBC, LIPA2, CMPF #### Testing performed at [address] [address] Lymphocytes (Bld) [#/Vol] 0.8 10*3/uL Low 1.2-3.4 [facility] Comment on above: Performed By: #### A CBC, LIPA2, CMPF #### Testing performed at [address] [address] Lymphocytes/100 WBC (Bld) 17.9 % Low 20.0-55.0 [facility] Comment on above: Performed By: #### A CBC, LIPA2, CMPF #### Testing performed at [address] [address] Monocytes (Bld) [#/Vol] 0.1 10*3/uL Normal 0.0-0.7 [facility] Comment on above: Performed By: #### A CBC, LIPA2, CMPF #### Testing performed at [address] [address] Monocytes/100 WBC (Bld) 2.3 % Normal 0.0-10.0 [facility] Comment on above: Performed By: #### A CBC, LIPA2, CMPF #### Testing performed at [address] [address] Neutrophils/100 WBC (Bld) 79.4 % High 37.0-75.0 [facility] Comment on above: Performed By: #### A CBC, LIPA2, CMPF #### Testing performed at [address] [address] Erythrocyte distribution width (RBC) [Ratio] 14.8 % High 11.5-14.5 [facility] Comment on above: Performed By: #### A CBC, LIPA2, CMPF #### Testing performed at [address] [address] Hematocrit (Bld) [Volume fraction] 38.8 % Normal 36.0-48.0 [facility] Comment on above: Performed By: #### A CBC, LIPA2, CMPF #### Testing performed at [address] [address] Hemoglobin (Bld) [Mass/Vol] 13.0 g/dL Normal 12.0-16.0 [facility] Comment on above: Performed By: #### A CBC, LIPA2, CMPF #### Testing performed at [address] [address] MCH (RBC) [Entitic mass] 30.6 pg Normal 26.0-35.0 [facility] Comment on above: Performed By: #### A CBC, LIPA2, CMPF #### Testing performed at [address] [address] MCHC (RBC) [Mass/Vol] 33.5 g/dL Normal 27.0-37.0 [facility] Comment on above: Performed By: #### A CBC, LIPA2, CMPF #### Testing performed at [address] [address] MCV (RBC) [Entitic vol] 91.2 fL Normal 80.0-100.0 [facility] Comment on above: Performed By: #### A CBC, LIPA2, CMPF #### Testing performed at [address] [address] Platelet mean volume (Bld) [Entitic vol] 9.9 fL Normal 7.4-11.0 [facility] Comment on above: Performed By: #### A CBC, LIPA2, CMPF #### Testing performed at [address] [address] Platelets (Bld) [#/Vol] 234 10*3/uL Normal 130-400 [facility] Comment on above: Performed By: #### A CBC, LIPA2, CMPF #### Testing performed at [address] [address] RBC (Bld) [#/Vol] 4.25 10*6/uL Normal 4.0-5.4 [facility] Comment on above: Performed By: #### A CBC, LIPA2, CMPF #### Testing performed at [address] [place] [address] [place] [address] WBC (Bld) [#/Vol] 4.5 10*3/uL Normal 3.6-11.0 [facility] Comment on above: Performed By: #### A CBC, LIPA2, CMPF #### Testing performed at [address] [address] CBC, EDIF, PLATELETon 2022 ABSOLUTE BASOPHIL COUNT 0.0 10*3/uL 0.0 - 0.2 10*3/uL [facility] Basophils/100 WBC (Bld) 0.3 % 0.0 - 2.0 % [facility] Differential cell count method Nom (Bld) AUTO DIFF % [facility] Eosinophils (Bld) [#/Vol] 0.0 10*3/uL 0.0 - 0.7 10*3/uL [facility] Eosinophils/100 WBC (Bld) 0.1 % 0.0 - 11.0 % [facility] Erythrocyte distribution width (RBC) [Ratio] 14.8 % High 11.5 - 14.5 % [facility] Hematocrit (Bld) [Volume fraction] 38.8 % 36.0 - 48.0 % [facility] Hemoglobin (Bld) [Mass/Vol] 13.0 g/dL [facility] Interpretation and review of laboratory results Abnormal [facility] Lymphocytes (Bld) [#/Vol] 0.8 10*3/uL Low 1.2 - 3.4 10*3/uL [facility] Lymphocytes/100 WBC (Bld) 17.9 % Low 20.0 - 55.0 % [facility] MCH (RBC) [Entitic mass] 30.6 pg 26.0 - 35.0 PG [facility] MCHC (RBC) [Mass/Vol] 33.5 g/dL [facility] MCV (RBC) [Entitic vol] 91.2 fL [facility] Monocytes (Bld) [#/Vol] 0.1 10*3/uL 0.0 - 0.7 10*3/uL [facility] Monocytes/100 WBC (Bld) 2.3 % 0.0 - 10.0 % [facility] Neutrophils (Bld) [#/Vol] 3.6 10*3/uL 1.4 - 6.5 10*3/uL [facility] Neutrophils/100 WBC (Bld) 79.4 % High 37.0 - 75.0 % [facility] Platelet mean volume (Bld) [Entitic vol] 9.9 fL [facility] Platelets (Bld) [#/Vol] 234 10*3/uL 130 - 400 10*3/uL [facility] RBC (Bld) [#/Vol] 4.25 10*6/uL 4.0 - 5.4 10*6/u L [facility] WBC (Bld) [#/Vol] 4.5 10*3/uL 3.6 - 11.0 10*3/u L [facility] CMP FASTINGon 11-02-2022 A:G RATIO 1.5 RATIO Normal [facility] Comment on above: Performed By: #### A CBC, LIPA2, CMPF #### Testing performed at [address] [address] ALBUMIN 4.4 G/dl Normal 3.5-5.0 [facility] Comment on above: Performed By: #### A CBC, LIPA2, CMPF #### Testing performed at [address] [address] ALP [Catalytic activity/Vol] 87 U/L Normal 38-126 [facility] Comment on above: Performed By: #### A CBC, LIPA2, CMPF #### Testing performed at [address] [address] ALT [Catalytic activity/Vol] 22 U/L Normal <35 [facility] Comment on above: Performed By: #### A CBC, LIPA2, CMPF #### Testing performed at [address] [address] AST [Catalytic activity/Vol] 34 U/L Normal 14-36 [facility] Comment on above: Performed By: #### A CBC, LIPA2, CMPF #### Testing performed at [address] [address] Bilirubin [Mass/Vol] 0.4 mg/dL Normal 0.2-1.3 [facility] Comment on above: Performed By: #### A CBC, LIPA2, CMPF #### [place] [address] Calcium [Mass/Vol] 9.0 mg/dL Normal 8.4-10.2 [facility] Comment on above: Performed By: #### A CBC, LIPA2, CMPF #### Testing performed at [place] [id number] Chloride [Moles/Vol] 106 mmol/L Normal 98-107 [facility] Comment on above: Result Comment: Yessy plascencia note: Triglyceride levels of 600mg/dL or higher may positively bias chloride results by approximately 2.1 mmol Performed By: #### A CBC, LIPA2, CMPF #### [place] [address] CO2 [Moles/Vol] 22 mmol/L Normal 22-30 [facility] Comment on above: Performed By: #### A CBC, LIPA2, CMPF #### [place] [address] Creatinine [Mass/Vol] 0.80 mg/dL Normal 0.70-1.20 [facility] Comment on above: Performed By: #### A CBC, LIPA2, CMPF #### Testing performed at [address] [address] EST. GFR, 106 ml/min/1.73sq.m Normal [facility] Comment on above: Performed By: #### A CBC, LIPA2, CMPF #### Testing performed at [address] [address] EST. GFR,Non 88 ml/min/1.73sq.m Normal [facility] Comment on above: Performed By: #### A CBC, LIPA2, CMPF #### [place] [address] GFR Information Average GFR for 30-39 years old = 107. Normal [facility] Comment on above: Result Comment: Stylist Apprentice alejandra Kidney disease, GFR = <60. Kidney failure, GFR = <15. The GFR estimate is not adjusted for extreme body surface area or acute process, nor has it been validated for women or ethnic groups other than and . Performed By: #### A CBC, LIPA2, CMPF #### Testing performed at [address] [address] Glucose [Mass/Vol] 119 mg/dL High 70-100 [facility] Comment on above: Result Comment: NORMAL <100 mg/dL PREDIABETES 101-126 mg/dL DIABETES 126 mg/dL or higher Performed By: #### A CBC, LIPA2, CMPF #### Testing performed at [address] [address] Potassium [Moles/Vol] 4.2 mmol/L Normal 3.5-5.1 [facility] Comment on above: Performed By: #### A CBC, LIPA2, CMPF #### Testing performed at [address] [address] Protein [Mass/Vol] 7.3 g/dL Normal 6.3-8.2 [facility] Comment on above: Performed By: #### A CBC, LIPA2, CMPF #### Testing performed at [address] [address] Sodium [Moles/Vol] 138 mmol/L Normal 137-145 [facility] Comment on above: Performed By: #### A CBC, LIPA2, CMPF #### Testing performed at [address] [address] Urea nitrogen [Mass/Vol] 8 mg/dL Normal 7-20 [facility] Comment on above: Performed By: #### A CBC, LIPA2, CMPF #### Testing performed at [address] [address] CNPNon 11-02-2022 CNPN Normal [facility] METABOLIC PANE Nestor 11-02-2022 Albumin [Mass/Vol] 4.4 G/dl 3.5 - 5.0 G/dl [facility] Albumin/Globulin [Mass ratio] 1.5 {ratio} RATIO [facility] ALP [Catalytic activity/Vol] 87 U/L [facility] ALT [Catalytic activity/Vol] 22 U/L NINF [facility] AST [Catalytic activity/Vol] 34 U/L [facility] Bilirubin [Mass/Vol] 0.4 mg/dL [facility] Calcium [Mass/Vol] 9.0 mg/dL [facility] Chloride [Moles/Vol] 106 mmol/L [facility] Comment on above: Please note: Triglyc eride levels of 600mg/dL or higher may positively bias chloride results by approximately 2.1 mmol CO2 [Moles/Vol] 22 mmol/L [facility] Creatinine [Mass/Vol] 0.80 mg/dL [facility] GFR COMMENT Average GFR for 30-39 years old = 107. [facility] Comment on above: Chronic Kidney disea se, GFR = <60. Kidney failure, GFR = <15. The GFR estimate is not adjusted for extreme body surface area or acute process, nor has it been validated for women or ethnic groups other than and . GFR/1.73 sq M.predicted among blacks MDRD (S/P/Bld) [Vol rate/Area] 106 mL/min/{1.73_m2} ml/min/1.73sq.m [facility] GFR/1.73 sq M.predicted among non-blacks MDRD (S/P/Bld) [Vol rate/Area] 88 mL/min/{1.73_m2} ml/min/1.73sq.m [facility] Glucose post fast [Mass/Vol] 119 mg/dL High [facility] Comment on above: NORMAL <100 mg/dL PREDIABETES 101-126 mg/dL DIABETES 126 mg/dL or higher Interpretation and review of laboratory results Abnormal [facility] Potassium [Moles/Vol] 4.2 mmol/L [facility] Protein [Mass/Vol] 7.3 g/dL [facility] Sodium [Moles/Vol] 138 mmol/L [facility] Urea nitrogen [Mass/Vol] 8 mg/dL [facility] HCG ( test) Ql (U)o n 11-02-2022 [facility] HCG QUALITATIVE, URINEon HCG ( test) Ql (U) Negative NEGATIVE [facility] LACTATE, BLOODon 11-02-2022 Lactate [Moles/Vol] 1.3 mmol/L 0.7 - 2.0 mmol/L [facility] [place] [facility] LACTATE,BLOODon 11-02-2022 Lactate [Moles/Vol] 1.3 mmol/L Normal 0.7-2.0 [facility] Comment on above: Performed By: #### L ACTAC #### Testing performed at [address] [address] LIPASEon 11-02-2022 Lipase [Catalytic activity/Vol] 105 U/L 23 - 300 U/L [facility] LIPASE,SERUMon 11-02-2022 LIPASE,SERUM 105 U/L Normal 23-300 [facility] Comment on above: Performed By: #### A CBC, LIPA2, CMPF #### Testing performed at [address] [address] No Panel Informationon 11-02 [facility] RAD - MISCon 11-02-2022 RAD - MISC [id number] Normal [facility] URINALYSIS, MACROon 11-03-19 23 Bilirubin Ql (U) Negative NEGATIVE [facility] Clarity (U) CLEAR CLEAR [facility] Color (U) YELLOW YELLOW [facility] Glucose Test strip (U) [Mass/Vol] Negative NEGATIVE mg/dl [facility] Hemoglobin Ql (U) Negative NEGATIVE [facility] Interpretation and review of laboratory results Abnormal [facility] Ketones (U) [Mass/Vol] Negative NEGATIVE mg/dl [facility] Leukocyte esterase Test strip Ql (U) Negative NEGATIVE [facility] Nitrite Ql (U) Negative NEGATIVE [facility] pH (U) 8.5 [pH] High 5.0 - 7.0 [facility] Protein Ql (U) Negative NEGATIVE mg/dl [facility] Specific gravity (U) [Rel density] 1.020 1.010 - 1.025 [facility] Urobilinogen (U) [Mass/Vol] 1.0 mg/dL [facility] [place] [facility] URINE HCG QUALon 11-02-2022 Beta HCG ( test) Ql (U) Negative Normal NEGATIVE [facility] Comment on above: Performed By: #### U HCGT, UMAC #### Testing performed at [address] [address] URINE MACROSCOPICon 11-03-19 Bilirubin Ql (U) Negative Normal NEGATIVE [facility] Comment on above: Performed By: #### U HCGT, UMAC #### Testing performed at [address] [address] Clarity (U) CLEAR Normal CLEAR [facility] Comment on above: Performed By: #### U HCGT, UMAC #### Testing performed at [address] [address] Color (U) YELLOW Normal YELLOW [facility] Comment on above: Performed By: #### U HCGT, UMAC #### Testing performed at [address] [address] Glucose Ql (U) Negative Normal NEGATIVE [facility] Comment on above: Performed By: #### U HCGT, UMAC #### Testing performed at [address] [address] pH (U) 8.5 [pH] High 5.0-7.0 [facility] Comment on above: Performed By: #### U HCGT, UMAC #### Testing performed at [address] [address] URINE HEMOGLOBIN Negative Normal NEGATIVE [facility] Comment on above: Performed By: #### U HCGT, UMAC #### Testing performed at [address] [place] [address] URINE KETONE Negative Normal NEGATIVE [facility] Comment on above: Performed By: #### U HCGT, UMAC #### Testing performed at [address] [address] URINE LEUKOTEST Negative Normal NEGATIVE [facility] Comment on above: Performed By: #### U HCGT, UMAC #### Testing performed at [address] [address] URINE NITRATES Negative Normal NEGATIVE [facility] Comment on above: Performed By: #### U HCGT, UMAC #### Testing performed at [address] [address] URINE SPEC GRAVITY 1.020 Normal 1.010-1.025 [facility] Comment on above: Performed By: #### U HCGT, UMAC #### Testing performed at [address] [address] URINE TOTAL PROTEIN Negative Normal NEGATIVE [facility] Comment on above: Performed By: #### U HCGT, UMAC #### Testing performed at [address] [address] Urobilinogen Qn (U) 1.0 {Munir'U}/dL Normal 0.2-1.0 [facility] Comment on above: Performed By: #### U HCGT, UMAC #### Testing performed at [address] [address] CBC with Auto Differentialon 10-31-2022 Basophils (Bld) [#/Vol] [facility] Basophils/100 WBC (Bld) 0 % 0 - 2 % [facility] Eosinophils (Bld) [#/Vol] 0.03 10*3/uL [facility] Eosinophils/100 WBC (Bld) 0 % Low 1 - 4 % [facility] Erythrocyte distribution width (RBC) [Ratio] 12.8 % 11.8 - 14.4 % [facility] Hematocrit (Bld) [Volume fraction] 38.9 % 36.3 - 47.1 % [facility] Hemoglobin (Bld) [Mass/Vol] 13.3 g/dL 11.9 - 15.1 g/dL [facility] Immature granulocytes (Bld) [#/Vol] [facility] Immature granulocytes/100 WBC (Bld) 0 % 0 [facility] Interpretation and review of laboratory results Abnormal [facility] Lymphocytes/100 WBC (Bld) 19 % Low 24 - 43 % [facility] Lymphocytes/100 WBC (Bld) 1.46 % [facility] MCH (RBC) [Entitic mass] 30.6 pg 25.2 - 33.5 pg [facility] MCHC (RBC) [Mass/Vol] 34.2 g/dL 28.4 - 34.8 g/dL [facility] MCV (RBC) [Entitic vol] 89.4 fL 82.6 - 102.9 fL [facility] Monocytes/100 WBC (Bld) 5 % 3 - 12 % [facility] Monocytes/100 WBC (Bld) 0.41 % [facility] Neutrophils/100 WBC (Bld) 76 % High 36 - 65 % [facility] Nucleated RBC/100 WBC (Bld) [Ratio] 0.0 % 0.0 per 100 WBC [facility] Platelet mean volume (Bld) [Entitic vol] 12.0 fL 8.1 - 13.5 fL [facility] Platelets (Bld) [#/Vol] 246 10*3/uL [facility] RBC (Bld) [#/Vol] 4.35 10*6/uL 3.95 - 5.11 m/uL [facility] Segmented neutrophils/100 WBC (Bld) 5.66 % [facility] WBC other (Bld) [#/Vol] 7.6 [facility] CBC with Diffon 10-31-2022 Abs. Basophil <0.03 Normal 0.00-0.20 [facility] Comment on above: Performed By: #### L JUDITH BROWN, CDP #### [facility] [address] [place] [address] [place] [address] Boiler Inspector: Baldomero Espinoza MD Abs.Imm.Granulocyte <0.03 Normal 0.00-0.[address] [facility] Comment on above: Performed By: #### L JUDITH BROWN, CDP #### [facility] [address] [place] [address] [place] [id number] Boiler Inspector: Baldomero Espinoza MD Abs.Neutrophil (Seg) 5.66 k/uL Normal 1.50-8.[address] [facility] Comment on above: Performed By: #### L JUDITH BROWN, CDP #### [address] [place] [address] Boiler Inspector: Baldomero Espinoza MD Basophils/100 WBC (Bld) 0 % Normal 0-[address] [facility] Comment on above: Performed By: #### L IP, CP, CDP #### [address] [place], [place] [id number] Boiler Inspector: Baldomero Espinoza MD Eosinophils (Bld) [#/Vol] 0.03 10*3/uL Normal 0.00-0.[address] [facility] Comment on above: Performed By: #### L IP, CP, CDP #### [address] [place], [facility] Boiler Inspector: Baldomero Espinoza MD Eosinophils/100 WBC (Bld) 0 % Low 1-[address] [facility] Comment on above: Performed By: #### L IP, CP, CDP #### [address] [place], [facility] Boiler Inspector: Baldomero Espinoza MD Erythrocyte distribution width (RBC) [Ratio] 12.8 % Normal 11.8-14.[address] [facility] Comment on above: Performed By: #### L IP, CP, CDP #### [address] [place], [facility] Boiler Inspector: Baldomero Espinoza MD Hematocrit (Bld) [Volume fraction] 38.9 % Normal 36.3-47.[address] [facility] Comment on above: Performed By: #### L IP, CP, CDP #### [address] [place], [facility] Boiler Inspector: Baldomero Espinoza MD Hemoglobin (Bld) [Mass/Vol] 13.3 g/dL Normal 11.9-15.[address] [facility] Comment on above: Performed By: #### L IP, CP, CDP #### [address] [place], [place] [id number] Boiler Inspector: Baldomero Espinoza MD Immature granulocytes/100 WBC (Bld) 0 % Normal [address] [facility] Comment on above: Performed By: #### L IP, CP, CDP #### [facility] [address] [place], [place] [id number] Boiler Inspector: Baldomero Espinoza MD Lymphocytes (Bld) [#/Vol] 1.46 10*3/uL Normal 1.10-3.[address] [facility] Comment on above: Performed By: #### L IP, CP, CDP #### [facility] [address] [place], [facility] Boiler Inspector: Baldomero Espinoza MD Lymphocytes/100 WBC (Bld) 19 % Low 24-[address] [facility] Comment on above: Performed By: #### L IP, CP, CDP #### [facility] [address] [place], [facility] Boiler Inspector: Baldomero Espinoza MD MCH (RBC) [Entitic mass] 30.6 pg Normal 25.2-33.[address] [facility] Comment on above: Performed By: #### L IP, CP, CDP #### [address] [place], [facility] Boiler Inspector: Baldomero Espinoza MD MCHC (RBC) [Mass/Vol] 34.2 g/dL Normal 28.4-34.[address] [facility] Comment on above: Performed By: #### L IP, CP, CDP #### [address] [place], [facility] Boiler Inspector: Baldomero Espinoza MD MCV (RBC) [Entitic vol] 89.4 fL Normal 82.6-102.[address] [facility] Comment on above: Performed By: #### L IP, CP, CDP #### [address] [place], [facility] Boiler Inspector: Baldomero Espinoza MD Monocytes (Bld) [#/Vol] 0.41 10*3/uL Normal 0.10-1.[address] [facility] Comment on above: Performed By: #### L IP, CP, CDP #### [facility] [address] [place], [place] [id number] Boiler Inspector: Baldomero Espinoza MD Monocytes/100 WBC (Bld) 5 % Normal 3-[address] [facility] Comment on above: Performed By: #### L IP, CP, CDP #### [facility] [address] [place], [place] [id number] Boiler Inspector: Baldomero Espinoza MD Neutrophil (Seg) 76 % High 36-65 [facility] Comment on above: Performed By: #### L IP, CP, CDP #### [facility] [address] [place], [place] [id number] Boiler Inspector: Baldomero Espinoza MD NRBC Automated 0.0 per 100 WBC Normal 0.[address] [facility] Comment on above: Performed By: #### L IP, CP, CDP #### [address] [place], [facility] Boiler Inspector: Baldomero Espinoza MD Platelet mean volume (Bld) [Entitic vol] 12.0 fL Normal 8.1-13.[address] [facility] Comment on above: Performed By: #### L IP, CP, CDP #### [address] [place], [place] [id number] Boiler Inspector: Baldomero Espinoza MD Platelets (Bld) [#/Vol] 246 10*3/uL Normal 138-[address] [facility] Comment on above: Performed By: #### L IP, CP, CDP #### [address] [place], [place] [id number] Boiler Inspector: Baldomero Espinoza MD RBC (Bld) [#/Vol] 4.35 10*6/uL Normal 3.95-5.[address] [facility] Comment on above: Performed By: #### L IP, CP, CDP #### [address] [place], [place] [id number] Boiler Inspector: Baldomero Espinoza MD WBC (Bld) [#/Vol] 7.6 10*3/uL Normal 3.5-11.[address] [facility] Comment on above: Performed By: #### L IP, CP, CDP #### [facility] [address] [place] [address] Boiler Inspector: Baldomero Espinoza MD [facility] Albumin [Mass/Vol] 4.5 g/dL 3.5 - 5.2 g/dL [facility] Albumin/Globulin [Mass ratio] 1.7 {ratio} 1.0 - 2.5 [facility] ALP [Catalytic activity/Vol] 76 U/L 35 - 104 U/L [facility] ALT [Catalytic activity/Vol] 14 U/L 5 - 33 U/L [facility] Anion gap [Moles/Vol] 12 mmol/L 9 - 17 mmol/L [facility] AST [Catalytic activity/Vol] 24 U/L NINF - 32 U/L [facility] Bilirubin [Mass/Vol] 0.3 mg/dL 0.3 - 1.2 mg/dL [facility] Calcium [Mass/Vol] 9.1 mg/dL 8.6 - 10.4 mg/dL [facility] Chloride [Moles/Vol] 106 mmol/L 98 - 107 mmol/L [facility] CO2 [Moles/Vol] 18 mmol/L Low 20 - 31 mmol/L [facility] Creatinine [Mass/Vol] 0.7 mg/dL 0.5 - 0.9 mg/dL [facility] GFR/1.73 sq M.predicted MDRD (S/P/Bld) [Vol rate/Area] - PINF [facility] Comment on above: These results are not [...] [Mass/Vol] 87 mg/dL 70 - 99 mg/dL [facility] Interpretation and review of laboratory results Abnormal [facility] Potassium [Moles/Vol] 3.8 mmol/L 3.7 - 5.3 mmol/L [facility] Protein [Mass/Vol] 7.2 g/dL 6.4 - 8.3 g/dL [facility] Sodium [Moles/Vol] 136 mmol/L 135 - 144 mmol/L [facility] Urea nitrogen [Mass/Vol] 7 mg/dL 6 - 20 mg/dL [facility] Urea nitrogen/Creatinine [Mass ratio] 10 mg/mg 9 - 20 [facility] Comp Metabolic Profon 2022 Albumin [Mass/Vol] 4.5 g/dL Normal 3.5-5.[address] [facility] Comment on above: Performed By: #### L JUDITH BROWN, CDP #### [facility] [address] [place] [address] Boiler Inspector: Baldomero Espinoza MD Albumin/Glob Ratio 1.7 Normal 1.0-2.[address] [facility] Comment on above: Performed By: #### L JUDITH BROWN, CDP #### [facility] [address] [place], [place] [id number] Boiler Inspector: Baldomero Espinoza MD Alkaline Phos 76 U/L Normal 35-104 [facility] Comment on above: Performed By: #### L JUDITH BROWN, CDP #### [facility] [address] [place] [address] Boiler Inspector: Baldomero Espinoza MD ALT [Catalytic activity/Vol] 14 U/L Normal 5-[address] [facility] Comment on above: Performed By: #### L JUDITH BROWN, CDP #### [facility] [address] [place] [address] Boiler Inspector: Baldomero Espinoza MD Anion gap [Moles/Vol] 12 mmol/L Normal 9-[address] [facility] Comment on above: Performed By: #### L IP, CP, CDP #### [facility] [address] [place], [place] [id number] Boiler Inspector: Baldomero Espinoza MD AST [Catalytic activity/Vol] 24 U/L Normal <[address] [facility] Comment on above: Performed By: #### L IP, CP, CDP #### [facility] [address] [place], [place] [id number] Boiler Inspector: Baldomero Espinoza MD Bilirubin [Mass/Vol] 0.3 mg/dL Normal 0.3-1.[address] [facility] Comment on above: Performed By: #### L IP, CP, CDP #### [address] [place], [place] [id number] Boiler Inspector: Baldomero Espinoza MD BUN/CRE Ratio 10 Normal 9-20 [facility] Comment on above: Performed By: #### L IP, CP, CDP #### [address] [place], [place] [phone] Boiler Inspector: Baldomero Espinoza MD Calcium [Mass/Vol] 9.1 mg/dL Normal 8.6-10.[address] [facility] Comment on above: Performed By: #### L IP, CP, CDP #### [address] [place], [place] [phone] Boiler Inspector: Baldomero Espinoza MD Chloride [Moles/Vol] 106 mmol/L Normal 98-[address] [facility] Comment on above: Performed By: #### L IP, CP, CDP #### [facility] [address] [place] [address] [place], [place] [id number] Boiler Inspector: Baldomero Espinoza MD CO2 [Moles/Vol] 18 mmol/L Low 20-31 [facility] Comment on above: Performed By: #### L IP, CP, CDP #### [facility] [address] [place] [address] [place] [address] Boiler Inspector: Baldomero Espinoza MD Creatinine [Mass/Vol] 0.7 mg/dL Normal 0.5-0.[address] [facility] Comment on above: Performed By: #### L IP CP, CDP #### [facility] [address] [place] [address] [place] [address] Boiler Inspector: Baldomero Espinoza MD GFR/1.73 sq M.predicted among non-blacks MDRD (S/P/Bld) [Vol rate/Area] mL/min/{1.73_m2} Normal >[address] [facility] Comment on above: Result Comment: These results [...] By: #### L IP, CP, CDP #### [facility] [address] [place] [address] [place] [address] Boiler Inspector: Baldomero Espinoza MD Glucose [Mass/Vol] 87 mg/dL Normal 70-[address] [facility] Comment on above: Performed By: #### L IP CP, CDP #### [address] [place] [address] Boiler Inspector: Baldomero Espinoza MD Potassium [Moles/Vol] 3.8 mmol/L Normal 3.7-5.[address] [facility] Comment on above: Performed By: #### L IP, CP, CDP #### [address] [place] [address] Boiler Inspector: Baldomero Espinoza MD Protein [Mass/Vol] 7.2 g/dL Normal 6.4-8.[address] [facility] Comment on above: Performed By: #### L IP, CP, CDP #### [facility] [address] [place] [address] [place], [place] [id number] Boiler Inspector: Baldomero Espinoza MD Sodium [Moles/Vol] 136 mmol/L Normal 135-[address] [facility] Comment on above: Performed By: #### L JUDITH BROWN, CDP #### [facility] [address] [place], [place] [id number] Boiler Inspector: Baldomero Espinoza MD Urea nitrogen [Mass/Vol] 7 mg/dL Normal 6-[address] [facility] Comment on above: Performed By: #### L JUDITH BROWN, CDP #### [facility] [address] [place], [place] [id number] Boiler Inspector: Baldomero Espinoza MD Lipaseon 10-31-2022 Lipase [Catalytic activity/Vol] 43 U/L Normal 13-[address] [facility] Comment on above: Performed By: #### L JUDITH BROWN, CDP #### [facility] [address] [place], [id number] Boiler Inspector: Baldomero Espinoza MD Lipase [Catalytic activity/Vol] 43 U/L 13 - 60 U/L [facility] Microscopic Urinalysison Bacteria LM Ql (Urine sed) 1+ Abnormal None [facility] Epithelial cells LM.HPF (Urine sed) [#/Area] 2 TO 5 [facility] Interpretation and review of laboratory results Abnormal [facility] RBC LM.HPF (Urine sed) [#/Area] None [facility] WBC LM.HPF (Urine sed) [#/Area] None [facility] No Panel Informationon 10-31 [facility] UA w/Reflex Cultureon 2022 Bilirubin, SemiQt,Ur Negative Normal NEG [facility] Comment on above: Performed By: #### U MICAO, UAX ####[facility] [place] [address] Lab Director: Baldomero Espinoza MD Blood, Urine Negative Normal NEG [facility] Comment on above: Performed By: #### U MICAO, UAX ####[address] [place] [address] Lab Director: Baldomero Espinoza MD Clarity (U) Clear Normal CLEAR [facility] Comment on above: Performed By: #### U MICAO, UAX ####[address] [place] [address] Lab Director: Baldomero Espinoza MD Color (U) Yellow Normal YEL [facility] Comment on above: Performed By: #### U MICAO, UAX ####[address] [place] [address] Lab Director: Baldomero Espinoza MD Glucose Ql (U) Negative Normal NEG [facility] Comment on above: Performed By: #### U MICAO, UAX ####[address] [place] [address] Lab Director: Baldomero Espinoza MD Ketones Ql (U) Negative Normal NEG [facility] Comment on above: Performed By: #### U MICAO, UAX ####[address] [place] [address] Lab Director: Baldomero Espinoza MD Leukocyte esterase Test strip Ql (U) Negative Normal NEG [facility] Comment on above: Performed By: #### U MICAO, UAX ####[address] [place] [address] Lab Director: Baldomero Espinoza MD Nitrite,Ur Negative Normal NEG [facility] Comment on above: Performed By: #### U MICAO, UAX ####[address] [place] [address] Lab Director: Baldomero Espinoza MD PH,Ur 7.0 Normal 5.0-9.[address] [facility] Comment on above: Performed By: #### U MICAO, UAX ####[facility] [place] , [place] [address] [facility] Director: Baldomero Espinoza MD Protein Ql (U) Negative Normal NEG [facility] Comment on above: Performed By: #### U MICAO, UAX ####[address] , [place] [address] [facility] Director: Baldomero Espinoza MD Spec. [place],Ur 1.015 Normal 1.010-1.020 [facility] Comment on above: Performed By: #### U MICAO, UAX ####[address] , [place] [address] lab Director: Baldomero Espinoza MD Urobilinogen,Ur Normal Normal 0.0-1.0 [facility] Comment on above: Performed By: #### U MICAO, UAX ####[address] , [place] [address] lab Director: Baldomero Espinoza MD Urinalysis with Reflex to Cu ltureon 10-31-2022 Bilirubin Ql (U) Negative NEGATIVE [facility] Clarity (U) Clear Clear [facility] Color (U) Yellow Yellow [facility] Glucose Test strip (U) [Mass/Vol] Negative NEGATIVE mg/dL [facility] Hemoglobin Auto test strip Ql (U) Negative NEGATIVE [facility] Ketones (U) [Mass/Vol] Negative NEGATIVE mg/dL [facility] Leukocyte esterase Test strip Ql (U) Negative NEGATIVE [facility] Nitrite Ql (U) Negative NEGATIVE [facility] pH (U) 7.0 [pH] 5.0 - 9.0 [facility] Protein (U) [Mass/Vol] Negative NEGATIVE mg/dL [facility] Specific gravity (U) [Rel density] 1.015 1.010 - 1.020 [facility] Urobilinogen Qn (U) Normal 0.0 - 1.0 EU/dL [facility] Urinalysis,Microon 3 Bacteria 1+ Abnormal NONE [facility] Comment on above: Performed By: #### U MICAO, UAX ####[facility] [place] [address] [facility] Director: Baldomero Espinoza MD Epithelial cells LM Ql (Urine sed) 2 TO 5 Normal 0-[address] [facility] Comment on above: Performed By: #### U MICAO, UAX ####[facility] [place] [address] lab Director: Baldomero Espinoza MD Urine RBC's None Normal 0-[address] [facility] Comment on above: Performed By: #### U MICAO, UAX ####[facility] [place] , [place] [address] lab Director: Baldomero Espinoza MD Urine WBC's None Normal 0-[address] [facility] Comment on above: Performed By: #### U MICAO, UAX ####[facility] [place] [address] lab Director: Baldomero Espinoza MD XR [...] E Regalado MD 10/31/22 Final result Normal [facility] 1. No acute vertebral body height loss or malalignment within the lumbar spine. 2. Mild anterior wedging of lower thoracic vertebral bodies, similar to the prior CT of 07/27/2021. 3. Prior cholecystectomy. Moderate stool burden. [facility] EXAMINATION: 5 XRAY VIEWS OF THE [...] sacral arcuate lines appear intact. Pelvic phleboliths. [facility] Luis E Regalado MD - 10/31/2022 [...] 07/27/2021. 3. Prior cholecystectomy. Moderate stool burden. [facility] Radiology Study observation (narrative) [facility] XR LUMBAR SPINE (MIN 4 VIEWS )Ordered By: Luis E Regalado on 10-31-2022 [facility] Work Phone: Transfer Inon 10-30-2022 Transfer In [id number] 6#1.00CD:127 [facility] Discharge Instructionson Discharge Instructions [id number] 183#1.00CD:127 [facility] Comment on above: Other Comment: wrong folder [facility] Auth for Release of Medical Recordson 10-28-2022 Auth for Release of Medical Records [id number] 7#1.00CD:127 [facility] CBC panel Auto (Bld)on 10-28 Erythrocyte distribution width (RBC) [Ratio] 13.2 % Normal 11.5-15.0 [facility] Comment on above: Order Comment: Speci men Type: BLOOD SPECIMENOrdering Facility: [facility] Address: [address] [place] [address] Performed By: #### 5 8410-2 ####[facility]ORY[facility] [id number] [place] [address] [place] Hematocrit (Bld) [Volume fraction] 33.4 % Low 36.0-46.0 [facility] Comment on above: Order Comment: Speci men Type: BLOOD SPECIMENOrdering Facility: [facility] Address: [address] [place] [address] Performed By: #### 5 8410-2 ####[facility]ORYCLIA [id number] [place] [address] [place] Hemoglobin (Bld) [Mass/Vol] 10.9 g/dL Low 11.5-15.5 [facility] Comment on above: Order Comment: Speci men Type: BLOOD SPECIMENOrdering Facility: [facility] Address: [address] [address] Performed By: #### 5 8410-2 ####[facility] [id number] [address] STATES OF [facility] MCH (RBC) [Entitic mass] 30.4 pg Normal 26.0-34.0 [facility] Comment on above: Order Comment: Speci men Type: BLOOD SPECIMENOrdering Facility: [facility] Address: [address] [address] Performed By: #### 5 8410-2 ####[facility] [id number] [address] [place] MCHC (RBC) [Mass/Vol] 32.6 g/dL Normal 30.5-36.0 [facility] Comment on above: Order Comment: Speci men Type: BLOOD SPECIMENOrdering Facility: [facility] Address: [address] [address] Performed By: #### 5 8410-2 ####[facility] [id number] [address] [place] MCV (RBC) [Entitic vol] 93.3 fL Normal 80.0-100.0 [facility] Comment on above: Order Comment: Speci men Type: BLOOD SPECIMENOrdering Facility: [facility] Address: [address] [address] Performed By: #### 5 8410-2 ####[facility]ORY[facility] [id number] [address] [place] Nucleated RBC (Bld) [#/Vol] 10*3/uL Normal <0.01 [facility] Comment on above: Order Comment: Speci men Type: BLOOD SPECIMENOrdering Facility: [facility] Address: [address] [address] Performed By: #### 5 8410-2 ####[facility] [id number] [place] [address] [place] Platelet mean volume (Bld) [Entitic vol] 11.7 fL Normal 9.0-12.7 [facility] Comment on above: Order Comment: Speci men Type: BLOOD SPECIMENOrdering Facility: [facility] Address: [address] [address] Performed By: #### 5 8410-2 ####[facility]ORY[facility] [id number] [place] [address] [place] Platelets (Bld) [#/Vol] 174 10*3/uL Normal 150-400 [facility] Comment on above: Order Comment: Speci men Type: BLOOD SPECIMENOrdering Facility: [facility] Address: [address] [place] [address] Performed By: #### 5 8410-2 ####[facility] [id number] [place] [address] [place] RBC (Bld) [#/Vol] 3.58 10*6/uL Low 3.90-5.20 [facility] Comment on above: Order Comment: Speci men Type: BLOOD SPECIMENOrdering Facility: [facility] Address: [address] [place] [address] Performed By: #### 5 8410-2 ####[facility] [id number] [place] [id number] [place] WBC (Bld) [#/Vol] 4.62 10*3/uL Normal 3.70-11.00 [facility] Comment on above: Order Comment: Speci men Type: BLOOD SPECIMENOrdering Facility: [facility] Address: [address] [place] [address] Performed By: #### 5 8410-2 ####[facility] [id number] [place] [address] [place] CNDSon 10-28-2022 CNDS Normal [facility] Comprehensive metabolic 2000 panelon 10-28-2022 Albumin [Mass/Vol] 3.2 g/dL Low 3.9-4.9 [facility] Comment on above: Order Comment: Speci men Type: BLOOD SPECIMENOrdering Facility: [facility] Address: [address] [address] Performed By: #### 2 4323-8, , 2776-02 ####[facility]ORATORYCLIA [id number] [place] [address] [place] ALP [Catalytic activity/Vol] 54 U/L Normal 34-123 [facility] Comment on above: Order Comment: Speci men Type: BLOOD SPECIMENOrdering Facility: [facility] Address: [address] [place] [address] Performed By: #### 2 4323-8, , 2776-02 ####[facility]ORATORYCLIA [id number] [place] [address] [place] ALT [Catalytic activity/Vol] 11 U/L Normal 7-38 [facility] Comment on above: Order Comment: Speci men Type: BLOOD SPECIMENOrdering Facility: [facility] Address: [address] [place] [address] Performed By: #### 2 4323-8, , 2776-02 ####[facility]ORATORYCLIA [id number] [place] [address] [place] Anion gap [Moles/Vol] 9 mmol/L Normal 9-18 [facility] Comment on above: Order Comment: Speci men Type: BLOOD SPECIMENOrdering Facility: [facility] Address: [address] Performed By: #### 2 4323-8, , 2776-02 ####[facility]ORATORYCLIA [id number] [place] [address] [place] AST [Catalytic activity/Vol] 23 U/L Normal 13-35 [facility] Comment on above: Order Comment: Speci men Type: BLOOD SPECIMENOrdering Facility: [facility] Address: [address] [place], [place] [address] Performed By: #### 2 4323-8, , 2776-02 ####[facility]ORATORYCLIA [id number] [place] [address] [place] Bilirubin [Mass/Vol] 0.3 mg/dL Normal 0.2-1.3 [facility] Comment on above: Order Comment: Speci men Type: BLOOD SPECIMENOrdering Facility: [facility] Address: [address] [address] Performed By: #### 2 4323-8, , 2776-02 ####[facility] [id number] [place] [address] [place] Calcium [Mass/Vol] 8.3 mg/dL Low 8.5-10.2 [facility] Comment on above: Order Comment: Speci men Type: BLOOD SPECIMENOrdering Facility: [facility] Address: [address] [address] Performed By: #### 2 4323-8, , 2776-02 ####[facility] [id number] [place] [address] [place] Chloride [Moles/Vol] 108 mmol/L High 97-105 [facility] Comment on above: Order Comment: Speci men Type: BLOOD SPECIMENOrdering Facility: [facility] Address: [address] [place] [address] Performed By: #### 2 4323-8, , 2776-02 ####[facility]ORYIA [id number] [place] [address] [place] CO2 [Moles/Vol] 21 mmol/L Low 22-30 [facility] Comment on above: Order Comment: Speci men Type: BLOOD SPECIMENOrdering Facility: [facility] Address: [address] [place] [address] Performed By: #### 2 4323-8, , 2776-02 ####[facility] LABORATORYCLIA [id number] [facility] [address] [place] Creatinine [Mass/Vol] 0.76 mg/dL Normal 0.58-0.96 [facility] Comment on above: Order Comment: Geraldo marrero Type: BLOOD SPECIMENOrdering Facility: [facility] Address: [address] [id number] Performed By: #### 2 4323-8, , 2776-02 ####[facility]ORATORYCLIA [id number] [place] [address] [place] [facility] Creatinine and Glomerular filtration rate.predicted panel (S/P/Bld) 106 mL/min/1.73m??? Normal >=60 [facility] Comment on above: Order Comment: [facility] Type: BLOOD SPECIMENOrdering Facility: [facility] Address: [address] [place], [place] [address] Result Comment: Jessica mated Glomerular Filtration Rate [...] Performed By: #### 2 4323-8, , 2776-02 ####[facility]ORATORYCLIA [id number] [place] [address] [place] Glucose [Mass/Vol] 84 mg/dL Normal 74-99 [facility] Comment on above: Order Comment: Geraldo [facility] Type: BLOOD SPECIMENOrdering Facility: [facility] Address: [address] [place], [place] [phone] Result Comment: The [place] Diabetes Association (ADA) provides guidance for cutoff [...] Standards of Medical Care in Diabetes 2016, [place] [employer]. Diabetes Care. 2016.39(Suppl 1). Performed By: #### 2 4323-8, , 2776-02 ####[facility]ORATORYCLIA [id number] [place] [address] [place] Potassium [Moles/Vol] 4.1 mmol/L Normal 3.7-5.1 [facility] Comment on above: Order Comment: Speci men Type: BLOOD SPECIMENOrdering Facility: [facility] Address: [address] [place] [address] Performed By: #### 2 4323-8, , 2776-02 ####[facility] [id number] [place] [address] [place] Protein [Mass/Vol] 5.2 g/dL Low 6.3-8.0 [facility] Comment on above: Order Comment: Lyssai men Type: BLOOD SPECIMENOrdering Facility: [facility] Address: [address] [place] [address] Performed By: #### 2 43238, , 2776-02 ####[facility] [id number] [place] [address] [place] Sodium [Moles/Vol] 138 mmol/L Normal 136-144 [facility] Comment on above: Order Comment: Speci men Type: BLOOD SPECIMENOrdering Facility: [facility] Address: [address] [place] [address] Performed By: #### 2 4323-8, , 2776-02 ####[facility]ORYIA [id number] [place] [address] [place] Urea nitrogen [Mass/Vol] 7 mg/dL Normal 7-21 [facility] Comment on above: Order Comment: Speci men Type: BLOOD SPECIMENOrdering Facility: [facility] Address: [address] [place], [place] [address] Performed By: #### 2 4323-8, , 7 ####[facility] [id number] [place] [address] [place] Formson 10-28-2022 Forms [id number]#1.00CD:127 Normal [facility] Magnesium [facility]28 Magnesium [Mass/Vol] 1.9 mg/dL Normal 1.7-2.3 [facility] Comment on above: Order Comment: Speci men Type: BLOOD SPECIMENOrdering Facility: [facility] Address: [address] [place] [address] Performed By: #### 2 4323-8, , 2776-02 ####[facility] [id number] [place] [address] [place] Phosphate SerPl-mCncon 10-28 Phosphate [Mass/Vol] 3.2 mg/dL Normal 2.7-4.8 [facility] Comment on above: Order Comment: Speci men Type: BLOOD SPECIMENOrdering Facility: [facility] Address: [address] [place], [place] [phone] Performed By: #### 2 4323-8, , 2776-02 ####[facility] [id number] [place] [address] [place] ANES POSTPROC EVALon 023 ANES POSTPROC EVAL Normal [facility] ANES PRE-OPon 10-27-2022 ANES PRE-OP Normal [facility] CBC panel Auto (Bld)on 10-27 Erythrocyte distribution width (RBC) [Ratio] 13.3 % Normal 11.5-15.0 [facility] Comment on above: Order Comment: Speci men Type: BLOOD SPECIMENOrdering Facility: [facility] Address: [address] [address] Performed By: #### 5 8410-2 ####[facility] [id number] [place] [address] [place] Hematocrit (Bld) [Volume fraction] 33.6 % Low 36.0-46.0 [facility] Comment on above: Order Comment: Speci men Type: BLOOD SPECIMENOrdering Facility: [facility] Address: [address] [address] Performed By: #### 5 8410-2 ####[facility] [id number] [place] [address] [place] Hemoglobin (Bld) [Mass/Vol] 10.9 g/dL Low 11.5-15.5 [facility] Comment on above: Order Comment: Speci men Type: BLOOD SPECIMENOrdering Facility: [facility] Address: [address] [address] Performed By: #### 5 8410-2 ####[facility] [id number] [place] [address] [place] MCH (RBC) [Entitic mass] 30.5 pg Normal 26.0-34.0 [facility] Comment on above: Order Comment: Speci men Type: BLOOD SPECIMENOrdering Facility: [facility] Address: [address] [address] Performed By: #### 5 8410-2 ####[facility] [id number] [place] [address] [place] MCHC (RBC) [Mass/Vol] 32.4 g/dL Normal 30.5-36.0 [facility] Comment on above: Order Comment: Speci men Type: BLOOD SPECIMENOrdering Facility: [facility] Address: [address] [place] [address] Performed By: #### 5 8410-2 ####[facility]ORYIA [id number] [place] [address] [place] MCV (RBC) [Entitic vol] 94.1 fL Normal 80.0-100.0 [facility] Comment on above: Order Comment: Speci men Type: BLOOD SPECIMENOrdering Facility: [facility] Address: [address] [address] Performed By: #### 5 8410-2 ####[facility]ORATORYCLIA [id number] [place] [address] [place] Nucleated RBC (Bld) [#/Vol] 10*3/uL Normal <0.01 [facility] Comment on above: Order Comment: Speci men Type: BLOOD SPECIMENOrdering Facility: [facility] Address: [address] [address] Performed By: #### 5 8410-2 ####[facility] [id number] [place] [address] [place] Platelet mean volume (Bld) [Entitic vol] 11.7 fL Normal 9.0-12.7 [facility] Comment on above: Order Comment: Speci men Type: BLOOD SPECIMENOrdering Facility: [facility] Address: [address] [address] Performed By: #### 5 8410-2 ####[facility] [id number] [place] [address] [place] Platelets (Bld) [#/Vol] 160 10*3/uL Normal 150-400 [facility] Comment on above: Order Comment: Speci men Type: BLOOD SPECIMENOrdering Facility: [facility] Address: [address] Performed By: #### 5 8410-2 ####[facility]ORY[facility] [id number] [place] [address] [place] RBC (Bld) [#/Vol] 3.57 10*6/uL Low 3.90-5.20 [facility] Comment on above: Order Comment: Speci men Type: BLOOD SPECIMENOrdering Facility: [facility] Address: [address] Performed By: #### 5 8410-2 ####[facility]ORATORYCLIA [id number] [place] [address] [place] WBC (Bld) [#/Vol] 3.53 10*3/uL Low 3.70-11.00 [facility] Comment on above: Order Comment: Speci men Type: BLOOD SPECIMENOrdering Facility: [facility] Address: [address] [place], [place] [address] Performed By: #### 5 8410-2 ####[facility] [id number] [place] [address] [place] CONSULT PROGon 10-27-2022 CONSULT PROG [facility] Comprehensive metabolic 2000 panelon 10-27-2022 Albumin [Mass/Vol] 3.3 g/dL Low 3.9-4.9 [facility] Comment on above: Order Comment: Speci men Type: BLOOD SPECIMENOrdering Facility: [facility] Address: [address] [place] [phone] Performed By: #### 2 777-1, 53609-7, ####[facility] [id number] [place] [address] [place] ALP [Catalytic activity/Vol] 52 U/L Normal 34-123 [facility] Comment on above: Order Comment: Speci men Type: BLOOD SPECIMENOrdering Facility: [facility] Address: [address] [place] [address] Performed By: #### 2 777-1, 34484-3, ####[facility] [id number] [place] [address] [place] ALT [Catalytic activity/Vol] 14 U/L Normal 7-38 [facility] Comment on above: Order Comment: Speci men Type: BLOOD SPECIMENOrdering Facility: [facility] Address: [address] Performed By: #### 2 777-1, , ####[facility]ORATORYCLIA [id number] [facility] [address] [place] Anion gap [Moles/Vol] 8 mmol/L Low 9-18 [facility] Comment on above: Order Comment: Speci men Type: BLOOD SPECIMENOrdering Facility: [facility] Address: [address] [place] [address] Performed By: #### 2 777-1, , ####[facility]ORATORYCLIA [id number] [place] [address] [place] AST [Catalytic activity/Vol] 28 U/L Normal 13-35 [facility] Comment on above: Order Comment: Speci men Type: BLOOD SPECIMENOrdering Facility: [facility] Address: [address] [place] [address] Performed By: #### 2 777-1, , ####[facility] [id number] [facility] [address] [place] Bilirubin [Mass/Vol] 0.2 mg/dL Normal 0.2-1.3 [facility] Comment on above: Order Comment: Speci men Type: BLOOD SPECIMENOrdering Facility: [facility] Address: [address] [place] [address] Performed By: #### 2 777-1, , ####[facility] H[facility]ITALIA [id number] [facility] [address] [place] Calcium [Mass/Vol] 8.1 mg/dL Low 8.5-10.2 [facility] Comment on above: Order Comment: Speci men Type: BLOOD SPECIMENOrdering Facility: [facility] Address: [address] [place] [address] Performed By: #### 2 777-1, , ####[facility]ORATORYCLIA [id number] [facility] [address] [place] Chloride [Moles/Vol] 110 mmol/L High 97-105 [facility] Comment on above: Order Comment: Speci men Type: BLOOD SPECIMENOrdering Facility: [facility] Address: [address] [place] [address] Performed By: #### 2 777-1, 48659-0, ####[facility]ORATORYCLIA [id number] [place] [address] [place] CO2 [Moles/Vol] 22 mmol/L Normal 22-30 [facility] Comment on above: Order Comment: Speci men Type: BLOOD SPECIMENOrdering Facility: [facility] Address: [address] [place] [id number] Performed By: #### 2 777-1, 51604-7, ####[facility] [id number] [place] [address] [place] Creatinine [Mass/Vol] 0.70 mg/dL Normal 0.58-0.96 [facility] Comment on above: Order Comment: Speci men Type: BLOOD SPECIMENOrdering Facility: [facility] Address: [address] [place] [phone] Performed By: #### 2 777-1, , ####[facility] [id number] [place] [address] [facility] Creatinine and Glomerular filtration rate.predicted panel (S/P/Bld) 117 mL/min/1.73m??? Normal >=60 [facility] l Comment on above: Order Comment: Speci men Type: BLOOD SPECIMENOrdering Facility: [facility] Address: [address] [place], [place] [address] Result Comment: Jessica mated Glomerular Filtration Rate [...] actual GFR. Performed By: #### 2 777-1, 37684-1, ####[facility] [id number] [place] [address] [place] Glucose [Mass/Vol] 89 mg/dL Normal 74-99 [facility] Comment on above: Order Comment: Speci men Type: BLOOD SPECIMENOrdering Facility: [facility] Address: [address] [place] [phone] Result Comment: The [place] Diabetes Association (ADA) provides guidance for cutoff [...] Standards of Medical Care in Diabetes 2016, [place] [employer]. Diabetes Care. 2016.39(Suppl 1). Performed By: #### 2 777-1, , ####[facility] [id number] [place] [address] [place] Potassium [Moles/Vol] 4.1 mmol/L Normal 3.7-5.1 [facility] Comment on above: Order Comment: Speci men Type: BLOOD SPECIMENOrdering Facility: [facility] Address: [address] [place] [address] Performed By: #### 2 777-1, 93631-1, ####[facility] [id number] [facility] [address] [place] Protein [Mass/Vol] 5.0 g/dL Low 6.3-8.0 [facility] Comment on above: Order Comment: Speci men Type: BLOOD SPECIMENOrdering Facility: [facility] Address: [address] [place] [address] Performed By: #### 2 777-1, , ####[facility]ORATORYCLIA [id number] [place] [address] [place] Sodium [Moles/Vol] 140 mmol/L Normal 136-144 [facility] Comment on above: Order Comment: Speci men Type: BLOOD SPECIMENOrdering Facility: [facility] Address: [address] [place], [place] [address] Performed By: #### 2 777-1, , ####[facility] [id number] [place] [address] [place] Urea nitrogen [Mass/Vol] 5 mg/dL Low 7-21 [facility] Comment on above: Order Comment: Speci men Type: BLOOD SPECIMENOrdering Facility: [facility] Address: [address] [place], [place] [address] Performed By: #### 2 777-1, , ####[facility] [id number] [place] [address] [place] Magnesium SerPl-ncon 10-27 Magnesium [Mass/Vol] 1.9 mg/dL Normal 1.7-2.3 [facility] Comment on above: Order Comment: Speci men Type: BLOOD SPECIMENOrdering Facility: [facility] Address: [address] [place], [place] [address] Performed By: #### 2 777-1, , ####[facility]ORATORYCLIA [id number] [place] [address] [place] NUTRITIONon 10-27-2022 NUTRITION Normal [facility] Phosphate SerPl-mCncon 10-27 Phosphate [Mass/Vol] 3.1 mg/dL Normal 2.7-4.8 [facility] Comment on above: Order Comment: Speci men Type: BLOOD SPECIMENOrdering Facility: [facility] Address: [address] [place] [address] Performed By: #### 2 777-1, 45355-0, 54457-2 ####[facility]ORATORYIA [id number] [place] [address] [place] Upper GI endoscopyon 023 Upper GI endoscopy Normal [facility] CASE MGT INIT ASSESon 2022 CASE MGT INIT ASS Normal [facility] CBC panel Auto (Bld)on 10-26 Erythrocyte distribution width (RBC) [Ratio] 13.2 % Normal 11.5-15.0 [facility] Comment on above: Order Comment: Speci men Type: BLOOD SPECIMENOrdering Facility: [facility] Address: [address] [place] [address] Performed By: #### 5 8410-2 ####[facility]ORYIA [id number] [place] [address] [place] Hematocrit (Bld) [Volume fraction] 34.9 % Low 36.0-46.0 [facility] Comment on above: Order Comment: Speci men Type: BLOOD SPECIMENOrdering Facility: [facility] Address: [address] [place] [address] Performed By: #### 5 8410-2 ####[facility] [id number] [place] [address] [place] Hemoglobin (Bld) [Mass/Vol] 11.1 g/dL Low 11.5-15.5 [facility] Comment on above: Order Comment: Speci men Type: BLOOD SPECIMENOrdering Facility: [facility] Address: [address] [place] [address] Performed By: #### 5 8410-2 ####[facility]ORYIA [id number] [place] [address] [place] MCH (RBC) [Entitic mass] 30.9 pg Normal 26.0-34.0 [facility] Comment on above: Order Comment: Speci men Type: BLOOD SPECIMENOrdering Facility: [facility] Address: [address] [place] [place] [address] Performed By: #### 5 8410-2 ####[facility] [id number] [place] [address] [place] MCHC (RBC) [Mass/Vol] 31.8 g/dL Normal 30.5-36.0 [facility] Comment on above: Order Comment: Speci men Type: BLOOD SPECIMENOrdering Facility: [facility] Address: [address] [place] [address] Performed By: #### 5 8410-2 ####[facility]IA [id number] [place] [address] [place] MCV (RBC) [Entitic vol] 97.2 fL Normal 80.0-100.0 [facility] Comment on above: Order Comment: Speci men Type: BLOOD SPECIMENOrdering Facility: [facility] Address: [address] [place] [address] Performed By: #### 5 8410-2 ####[facility] [id number] [place] [address] [place] Nucleated RBC (Bld) [#/Vol] 10*3/uL Normal <0.01 [facility] Comment on above: Order Comment: Speci men Type: BLOOD SPECIMENOrdering Facility: [facility] Address: [address] [place] [place] [address] Performed By: #### 5 8410-2 ####[facility]IA [id number] [place] [address] [place] Platelet mean volume (Bld) [Entitic vol] 11.9 fL Normal 9.0-12.7 [facility] Comment on above: Order Comment: Speci men Type: BLOOD SPECIMENOrdering Facility: [facility] Address: [address] [place] [place] [address] Performed By: #### 5 8410-2 ####[facility]IA [id number] [place] [address] [place] Platelets (Bld) [#/Vol] 181 10*3/uL Normal 150-400 [facility] Comment on above: Order Comment: Speci men Type: BLOOD SPECIMENOrdering Facility: [facility] Address: [address] [place] [address] Performed By: #### 5 8410-2 ####[facility]ORATORYCLIA [id number] [facility] [place] [address] [place] RBC (Bld) [#/Vol] 3.59 10*6/uL Low 3.90-5.20 [facility] Comment on above: Order Comment: Speci men Type: BLOOD SPECIMENOrdering Facility: [facility] Address: [address] Performed By: #### 5 8410-2 ####[facility]ITALCLIA [id number] [place] [address] [facility] WBC (Bld) [#/Vol] 3.44 10*3/uL Low 3.70-11.00 [facility] Comment on above: Order Comment: Speci men Type: BLOOD SPECIMENOrdering Facility: [facility] Address: [address] [place] [address] Performed By: #### 5 8410-2 ####[facility]ITALIA [id number] [facility] [address] [facility] [place] CONSULTon 10-26-2022 CONSULT Normal [facility] Comprehensive metabolic 2000 panelon 10-26-2022 Albumin [Mass/Vol] 3.3 g/dL Low 3.9-4.9 [facility] Comment on above: Order Comment: Speci men Type: BLOOD SPECIMENOrdering Facility: [facility] Address: [address] [place] [address] Performed By: #### 1 9123-9, 3016-3, 36798-0, 2777-1 ####[facility]ORATORYCLIA [id number] [facility] [address] [place] ALP [Catalytic activity/Vol] 52 U/L Normal 34-123 [facility] Comment on above: Order Comment: Speci men Type: BLOOD SPECIMENOrdering Facility: [facility] Address: [address] [place] [address] Performed By: #### 1 9123-9, 3016-3, 45875-5, 277-1 ####[facility]ORATORYCLIA [id number] [place] [address] [place] ALT [Catalytic activity/Vol] 15 U/L Normal 7-38 [facility] Comment on above: Order Comment: Speci men Type: BLOOD SPECIMENOrdering Facility: [facility] Address: [address] [place] [address] Performed By: #### 1 9123-9, 6-3, 34450-0, 277-1 ####[facility]ORATORYCLIA [id number] [place] [address] [place] Anion gap [Moles/Vol] 9 mmol/L Normal 9-18 [facility] Comment on above: Order Comment: Speci men Type: BLOOD SPECIMENOrdering Facility: [facility] Address: [address] [place] [address] Performed By: #### 1 9123-9, 6-3, 05540-3, 277- ####[facility]PITALCLIA [id number] [place], [place] [address] [place] [address] [place] AST [Catalytic activity/Vol] 30 U/L Normal 13-35 [facility] Comment on above: Order Comment: Speci men Type: BLOOD SPECIMENOrdering Facility: [facility] Address: [address] [place] [address] Performed By: #### 1 9123-9, 3016-3, 42854-2, 2777-1 ####[facility]ORATORYCLIA [id number] [place] [address] [place] Bilirubin [Mass/Vol] 0.4 mg/dL Normal 0.2-1.3 [facility] Comment on above: Order Comment: Speci men Type: BLOOD SPECIMENOrdering Facility: [facility] Address: [address] [place] [address] Performed By: #### 1 9123-9, 3016-3, 32423-5, 2777- ####[facility]IA [id number] [place] [address] [place] Calcium [Mass/Vol] 8.3 mg/dL Low 8.5-10.2 [facility] Comment on above: Order Comment: Speci men Type: BLOOD SPECIMENOrdering Facility: [facility] Address: [address] [place] [address] Performed By: #### 1 9123-9, 3016-3, 36132-4, 2777- ####[facility]IA [id number] [place] [address] [place] Chloride [Moles/Vol] 110 mmol/L High 97-105 [facility] Comment on above: Order Comment: Speci men Type: BLOOD SPECIMENOrdering Facility: [facility] Address: [address] [place] [address] Performed By: #### 1 9123-9, 3016-3, 45701-3, 277- ####[facility]ITALIA [id number] [place] [address] [place] CO2 [Moles/Vol] 20 mmol/L Low 22-30 [facility] Comment on above: Order Comment: Speci men Type: BLOOD SPECIMENOrdering Facility: [facility] Address: [address] [place] [address] Performed By: #### 1 9123-9, 3016-3, 87973-7, 2777-1 ####[facility]ATORYIA [id number] [place] [address] [place] Creatinine [Mass/Vol] 0.73 mg/dL Normal 0.58-0.96 [facility] Comment on above: Order Comment: Speci men Type: BLOOD SPECIMENOrdering Facility: [facility] Address: [address] [place] [address] Performed By: #### 1 9123-9, 3016-3, 49348-8, 2777-1 ####[facility]ORATORYIA [id number] [place] [address] [place] Creatinine and Glomerular filtration rate.predicted panel (S/P/Bld) 112 mL/min/1.73m??? Normal >=60 [facility] Comment on above: Order Comment: Geraldo marrero Type: BLOOD SPECIMENOrdering Facility: [facility] Address: [address] [place] [address] Result Comment: Jessica mated Glomerular Filtration Rate [...] GFR. Performed By: #### 1 9123-9, 3016-3, 96507-5, 2777- ####[facility]ORATORYIA [id number] [place] [address] [place] Glucose [Mass/Vol] 83 mg/dL Normal 74-99 [facility] Comment on above: Order Comment: Geraldo marrero Type: BLOOD SPECIMENOrdering Facility: [facility] Address: [address] [place] [address] Result Comment: The [place] Diabetes Association (ADA) provides guidance for cutoff [...] Standards of Medical Care in Diabetes 2016, [place] [employer]. Diabetes Care. 2016.39(Suppl 1). Performed By: #### 1 23-9, 6-3, 32947-1, 2776- ####[facility]ORATORYCLIA [id number] [place] [address] [place] Potassium [Moles/Vol] 4.2 mmol/L Normal 3.7-5.1 [facility] Comment on above: Order Comment: Speci men Type: BLOOD SPECIMENOrdering Facility: [facility] Address: [address] [place] [address] Performed By: #### 1 9123-9, 3015-3, 75564-0, 2776- ####[facility]ITALCLIA [id number] [place] [address] [place] Protein [Mass/Vol] 5.0 g/dL Low 6.3-8.0 [facility] Comment on above: Order Comment: Speci men Type: BLOOD SPECIMENOrdering Facility: [facility] Address: [address] [place] [place] [address] Performed By: #### 1 23-9, 3015-3, 25738-7, 2776- ####[facility] H[facility]ITALIA [id number] [place] [address] [place] Sodium [Moles/Vol] 139 mmol/L Normal 136-144 [facility] Comment on above: Order Comment: Speci men Type: BLOOD SPECIMENOrdering Facility: [facility] Address: [address] [place] [address] Performed By: #### 1 9123-9, 3015-3, 64919-5, 2776- ####[facility] H[facility]ITALIA [id number] [place] [address] [place] Urea nitrogen [Mass/Vol] 5 mg/dL Low 7-21 [facility] Comment on above: Order Comment: Speci men Type: BLOOD SPECIMENOrdering Facility: [facility] Address: [address] [place] [place] [address] Performed By: #### 1 9123-9, 3015-3, 79932-8, 2776-1 ####[facility] H[facility]ITALIA [id number] [place] [address] [place] ED Note-Physicianon 10-27-19 ED Note-Physician Prabhakar [facility] Comment on above: Result Comment: Elec tronically Signed By: Lonnie Rios PA-C\.br\Date and Time Signed: 10/20/22 13:50 EDT\.br\Electronically Co-Signed By: Earnest Jett DO\.br\Date and Time Co-Signed: 10/26/22 07:01 EDT Magnesium SerPl-mCncon 10-26 Magnesium [Mass/Vol] 1.9 mg/dL Normal 1.7-2.3 [facility] Comment on above: Order Comment: Speci elida Type: BLOOD SPECIMENOrdering Facility: [facility] Address: [address] [place], [place] [address] Performed By: #### 1 9123-9, 3016-3, 84204-8, 2777-1 ####[facility] [id number] [place] [address] [place] Phosphate SerPl-mCncon 10-26 Phosphate [Mass/Vol] 4.3 mg/dL Normal 2.7-4.8 [facility] Comment on above: Order Comment: Specmichael marrero Type: BLOOD SPECIMENOrdering Facility: [facility] Address: [address] [place], [place] [address] Performed By: #### 1 9123-9, 3016-3, 57246-0, 2777-1 ####[facility] HOS[facility]ITALIA [id number] [place] [address] [place] TSH SerPl-aCncon 10-26-2022 TSH Qn 0.712 m[IU]/L Normal 0.270-4.200 [facility] Comment on above: Order Comment: Specmichael marrero Type: BLOOD SPECIMENOrdering Facility: [facility] Address: [address] [place], [place] [address] Result Comment: If t he patient is , TSH reference range varies by gestational period:First Trimester (weeks 9-12): 0.180-2.990 mIU/LSecond Trimester: 0.110-3.980 mIU/LThird Trimester: 0.480-4.710 mIU/Lisa Johnson et al. A Practical Approach for the Verifications and Determination of Site- and Trimester-Specific Reference Intervals for Thyroid Function tests in . Thyroid, 2019:29:3:412-420. Claus E, et al. 2017 Guidelines of the [place] Thyroid Association for the Diagnosis and Management of Thyroid Disease during and the . Thyroid, 2017:27:3:315-389. Performed By: #### 1 9123-9, 3016-3, 37542-1, 2777-1 ####[facility]ORATORYIA [id number] [place] [address] [place] CBC W Auto Differential pane l (Bld)on 10-25-2022 Basophils (Bld) [#/Vol] 0.04 10*3/uL Normal <0.11 [facility] Comment on above: Order Comment: Speci men Type: BLOOD SPECIMENOrdering Facility: [facility] Address: [address] [address] Performed By: #### 5 7021-8 ####[facility] [id number] [place] [address] [place] Basophils/100 WBC (Bld) 1.1 % Normal [facility] Comment on above: Order Comment: Speci men Type: BLOOD SPECIMENOrdering Facility: [facility] Address: [address] [place] [address] Performed By: #### 5 7021-8 ####[facility] [id number] [address] [place] Differential cell count method Nom (Bld) Auto Normal [facility] Comment on above: Order Comment: Speci men Type: BLOOD SPECIMENOrdering Facility: [facility] Address: [address] [address] Performed By: #### 5 7021-8 ####[facility]ORYIA [id number] [facility] [address] [place] Eosinophils (Bld) [#/Vol] 0.07 10*3/uL Normal <0.46 [facility] Comment on above: Order Comment: Speci men Type: BLOOD SPECIMENOrdering Facility: [facility] Address: [address] [address] Performed By: #### 5 7021-8 ####[facility]ORATORYCLIA [id number] [place] [address] [place] Eosinophils/100 WBC (Bld) 1.9 % Normal [facility] Comment on above: Order Comment: Speci men Type: BLOOD SPECIMENOrdering Facility: [facility] Address: [address] [place] [address] Performed By: #### 5 7021-8 ####[facility]ORATORYCLIA [id number] [address] [place] Erythrocyte distribution width (RBC) [Ratio] 13.0 % Normal 11.5-15.0 [facility] Comment on above: Order Comment: Speci men Type: BLOOD SPECIMENOrdering Facility: [facility] Address: [address] [place] [address] Performed By: #### 5 7021-8 ####[facility]ORATORYCLIA [id number] [place] [address] [place] Hematocrit (Bld) [Volume fraction] 39.5 % Normal 36.0-46.0 [facility] Comment on above: Order Comment: Speci men Type: BLOOD SPECIMENOrdering Facility: [facility] Address: [address] [place] [address] Performed By: #### 5 7021-8 ####[facility]ORYCLIA [id number] [place] [address] [place] Hemoglobin (Bld) [Mass/Vol] 13.1 g/dL Normal 11.5-15.5 [facility] Comment on above: Order Comment: Speci men Type: BLOOD SPECIMENOrdering Facility: [facility] Address: [address] Performed By: #### 5 7021-8 ####[facility]ATORYCLIA [id number] [place] [address] [place] Immature granulocytes (Bld) [#/Vol] 10*3/uL Normal <0.10 [facility] Comment on above: Order Comment: Speci men Type: BLOOD SPECIMENOrdering Facility: [facility] Address: [address] [address] Performed By: #### 5 7021-8 ####[facility]ORYCLIA [id number] [place] [address] [place] Immature granulocytes/100 WBC (Bld) 0.3 % Normal [facility] Comment on above: Order Comment: Speci men Type: BLOOD SPECIMENOrdering Facility: [facility] Address: [address] [address] Performed By: #### 5 7021-8 ####[facility]ITALIA [id number] [place] [address] [place] Lymphocytes (Bld) [#/Vol] 1.11 10*3/uL Normal 1.00-4.00 [facility] Comment on above: Order Comment: Speci men Type: BLOOD SPECIMENOrdering Facility: [facility] Address: [address] [address] Performed By: #### 5 7021-8 ####[facility]ORYIA [id number] [place] [address] [place] Lymphocytes/100 WBC (Bld) 29.4 % Normal [facility] Comment on above: Order Comment: Speci men Type: BLOOD SPECIMENOrdering Facility: [facility] Address: [address] [address] Performed By: #### 5 7021-8 ####[facility]ORYIA [id number] [place] [address] [place] MCH (RBC) [Entitic mass] 30.5 pg Normal 26.0-34.0 [facility] Comment on above: Order Comment: Speci men Type: BLOOD SPECIMENOrdering Facility: [facility] Address: [address] [address] Performed By: #### 5 7021-8 ####[facility] [id number] [place] [address] [place] [facility] (RBC) [Mass/Vol] 33.2 g/dL Normal 30.5-36.0 [facility] Comment on above: Order Comment: Speci men Type: BLOOD SPECIMENOrdering Facility: [facility] Address: [address] [address] Performed By: #### 5 7021-8 ####[facility] [id number] [place] [address] [place] [facility] (RBC) [Entitic vol] 92.1 fL Normal 80.0-100.0 [facility] Comment on above: Order Comment: Speci men Type: BLOOD SPECIMENOrdering Facility: [facility] Address: [address] [address] Performed By: #### 5 7021-8 ####[facility] [id number] [place] [address] [place] Monocytes (Bld) [#/Vol] 0.27 10*3/uL Normal <0.87 [facility] Comment on above: Order Comment: Speci men Type: BLOOD SPECIMENOrdering Facility: [facility] Address: [address] Performed By: #### 5 7021-8 ####[facility]ORATORYIA [id number] [address] [place] Monocytes/100 WBC (Bld) 7.1 % Normal [facility] Comment on above: Order Comment: Speci men Type: BLOOD SPECIMENOrdering Facility: [facility] Address: [address] Performed By: #### 5 7021-8 ####[facility]ORY[facility] [id number] [place] [address] [place] Neutrophils (Bld) [#/Vol] 2.28 10*3/uL Normal 1.45-7.50 [facility] Comment on above: Order Comment: Speci men Type: BLOOD SPECIMENOrdering Facility: [facility] Address: [address] [place] [address] Performed By: #### 5 7021-8 ####[facility] LABORATORYCLIA [id number] [place] [address] [place] Neutrophils/100 WBC (Bld) 60.2 % Normal [facility] Comment on above: Order Comment: Speci men Type: BLOOD SPECIMENOrdering Facility: [facility] Address: [address] [place] [address] Performed By: #### 5 7021-8 ####[facility] [id number] [place] [address] [place] Nucleated RBC (Bld) [#/Vol] 10*3/uL Normal <0.01 [facility] Comment on above: Order Comment: Speci men Type: BLOOD SPECIMENOrdering Facility: [facility] Address: [address] [place] [address] Performed By: #### 5 7021-8 ####[facility] [id number] [place] [address] [place] Nucleated RBC/100 WBC (Bld) [Ratio] 0.0 /100 WBC Normal [facility] Comment on above: Order Comment: Speci men Type: BLOOD SPECIMENOrdering Facility: [facility] Address: [address] [place] [place] [address] Performed By: #### 5 7021-8 ####[facility] [id number] [place] [address] [place] Platelet mean volume (Bld) [Entitic vol] 11.4 fL Normal 9.0-12.7 [facility] Comment on above: Order Comment: Speci men Type: BLOOD SPECIMENOrdering Facility: [facility] Address: [address] [place], [place] [address] Performed By: #### 5 7021-8 ####[facility] [id number] [place] [address] [facility] [place] Platelets (Bld) [#/Vol] 208 10*3/uL Normal 150-400 [facility] Comment on above: Order Comment: Speci men Type: BLOOD SPECIMENOrdering Facility: [facility] Address: [address] [place] [address] Performed By: #### 5 7021-8 ####[facility] H[facility]ITALIA [id number] [place] [address] [place] RBC (Bld) [#/Vol] 4.29 10*6/uL Normal 3.90-5.20 [facility] Comment on above: Order Comment: Speci men Type: BLOOD SPECIMENOrdering Facility: [facility] Address: [address] [place] [address] Performed By: #### 5 7021-8 ####[facility]ITALIA [id number] [place] [address] [place] WBC (Bld) [#/Vol] 3.78 10*3/uL Normal 3.70-11.00 [facility] Comment on above: Order Comment: Speci men Type: BLOOD SPECIMENOrdering Facility: [facility] Address: [address] [place] [address] Performed By: #### 5 7021-8 ####[facility]ITALIA [id number] [place] [address] [place] CT ABD/PEL W IVCONon 023 CT ABD/PEL W IVCON Normal [facility] Comprehensive metabolic 2000 panelon 10-25-2022 Albumin [Mass/Vol] 4.2 g/dL Normal 3.9-4.9 [facility] Comment on above: Order Comment: Speci men Type: BLOOD SPECIMENOrdering Facility: [facility] Address: [address] [place] [address] Performed By: #### 1 23-9, 76297-0, 0-3 ####[facility] LABORATORYCLIA [id number] [facility] [address] [place] ALP [Catalytic activity/Vol] 70 U/L Normal 34-123 [facility] Comment on above: Order Comment: Speci men Type: BLOOD SPECIMENOrdering Facility: [facility] Address: [address] [place] [address] Performed By: #### 1 23-9, 50812-1, 0-3 ####[facility]ORATORYCLIA [id number] [place] [address] [place] ALT [Catalytic activity/Vol] 21 U/L Normal 7-38 [facility] Comment on above: Order Comment: Speci men Type: BLOOD SPECIMENOrdering Facility: [facility] Address: [address] [place] [address] Performed By: #### 1 9123-9, 17417-9, 0-3 ####[facility] H[facility]ITALIA [id number] [place] [address] [place] Anion gap [Moles/Vol] 10 mmol/L Normal 9-18 [facility] Comment on above: Order Comment: Speci men Type: BLOOD SPECIMENOrdering Facility: [facility] Address: [address] [place] [address] Performed By: #### 1 9123-9, 38240-8, 0-3 ####[facility]ORATORYCLIA [id number] [facility] [address] [place] AST [Catalytic activity/Vol] 38 U/L High 13-35 [facility] Comment on above: Order Comment: Speci men Type: BLOOD SPECIMENOrdering Facility: [facility] Address: [address] [place] [address] Performed By: #### 1 9123-9, 34896-3, 0-3 ####[facility]ORATORYCLIA [id number] [place] [address] [place] Bilirubin [Mass/Vol] 0.3 mg/dL Normal 0.2-1.3 [facility] Comment on above: Order Comment: Speci men Type: BLOOD SPECIMENOrdering Facility: [facility] Address: [address] [place] [address] Performed By: #### 1 9123-9, 90291-2, 0-3 ####[facility]ORATORYCLIA [id number] [place] [address] [place] Calcium [Mass/Vol] 8.8 mg/dL Normal 8.5-10.2 [facility] Comment on above: Order Comment: Speci men Type: BLOOD SPECIMENOrdering Facility: [facility] Address: [address] [place] [address] Performed By: #### 1 9123-9, 90040-1, 0-3 ####[facility]ORATORYCLIA [id number] [place] [address] [place] Chloride [Moles/Vol] 106 mmol/L High 97-105 [facility] Comment on above: Order Comment: Speci men Type: BLOOD SPECIMENOrdering Facility: [facility] Address: [address] [place] [address] Performed By: #### 1 9123-9, 15672-5, 0-3 ####[facility]ORATORYCLIA [id number] [place] [address] [place] CO2 [Moles/Vol] 22 mmol/L Normal 22-30 [facility] ital Comment on above: Order Comment: Speci men Type: BLOOD SPECIMENOrdering Facility: [facility] Address: [address] [place] [address] Performed By: #### 1 9123-9, 83256-1, 0-3 ####[facility]ORATORYCLIA [id number] [place] [address] [place] Creatinine [Mass/Vol] 0.82 mg/dL Normal 0.58-0.96 [facility] Comment on above: Order Comment: Speci men Type: BLOOD SPECIMENOrdering Facility: [facility] Address: [address] [place] [address] Performed By: #### 1 9123-9, 31262-4, 3040-3 ####[facility]ORYIA [id number] [place] [address] [place] Creatinine and Glomerular filtration rate.predicted panel (S/P/Bld) 97 mL/min/1.73m??? Normal >=60 [facility] Comment on above: Order Comment: Geraldo marrero Type: BLOOD SPECIMENOrdering Facility: [facility] Address: [address] [place] [id number] Result Comment: Jessica mated Glomerular Filtration Rate [...] actual GFR. Performed By: #### 1 9123-9, 09197-7, 3040-3 ####[facility] [id number] [place] [address] [place] Glucose [Mass/Vol] 85 mg/dL Normal 74-99 [facility] Comment on above: Order Comment: Geraldo marrero Type: BLOOD SPECIMENOrdering Facility: [facility] Address: [address] [place], [place] [address] Result Comment: The [place] [employer] (ADA) provides guidance for cutoff [...] Standards of Medical Care in Diabetes 2016, [place] [employer]. Diabetes Care. 2016.39(Suppl 1). Performed By: #### 1 9123-9, 97096-1, 0-3 ####[facility]ITALCLIA [id number] [place] [address] [place] Potassium [Moles/Vol] 3.8 mmol/L Normal 3.7-5.1 [facility] Comment on above: Order Comment: Speci men Type: BLOOD SPECIMENOrdering Facility: [facility] Address: [address] [place] [address] Performed By: #### 1 9123-9, 54232-5, 0-3 ####[facility] HOS[facility]ITALIA [id number] [place] [address] [place] Protein [Mass/Vol] 6.5 g/dL Normal 6.3-8.0 [facility] Comment on above: Order Comment: Speci men Type: BLOOD SPECIMENOrdering Facility: [facility] Address: [address] [address] Performed By: #### 1 9123-9, 84343-1, 0-3 ####[facility] HOSPITALIA [id number] [place] [address] [place] Sodium [Moles/Vol] 138 mmol/L Normal 136-144 [facility] Comment on above: Order Comment: Speci men Type: BLOOD SPECIMENOrdering Facility: [facility] Address: [address] [address] Performed By: #### 1 9123-9, 68269-3, 0-3 ####[facility] HOSPITALIA [id number] [place] [address] [place] Urea nitrogen [Mass/Vol] 7 mg/dL Normal 7-21 [facility] Comment on above: Order Comment: Speci men Type: BLOOD SPECIMENOrdering Facility: [facility] Address: [address] [place] [place] [address] Performed By: #### 1 9123-9, 50859-5, 0-3 ####[facility]ORYIA [id number] [place] [address] [place] D dimer FEU PPP-mCncon 10-25 Fibrin D-dimer FEU (PPP) [Mass/Vol] <190 Normal <500 [facility] Comment on above: Order Comment: Speci men Type: BLOOD SPECIMENOrdering Facility: [facility] Address: [address] [place] [address] Performed By: #### 4 8065-7 ####[facility]ORATORYCLIA [id number] [place] [address] [place] ECG COMPLETEon 10-25-2022 ECG COMPLETE Normal [facility] ED NOTEon 10-25-2022 ED NOTE HNO ID: [id number] Author: Anam Myers RN Service: ? Author Type: Registered Nurse Type: ED Notes Filed: 10/25/2022 8:19 AM Note Text: Pt unable to urinate sat this time. Aware urine sample is needed. Normal [facility] ED NOTE Normal [facility] ED PROV NOTEon 10-25-2022 ED PROV NOTE Normal [facility] HISTORY PHYSICALon HISTORY PHYSICAL Normal [facility] pital Lipase SerPl-cCncon 10-26-19 Lipase [Catalytic activity/Vol] 29 U/L Normal 16-61 [facility] Comment on above: Order Comment: Speci men Type: BLOOD SPECIMENOrdering Facility: [facility] Address: [address] [place], [place] [address] Performed By: #### 1 9123-9, 49379-5, 3040-3 ####[facility] LABORATORYCLIA [id number] [place] [address] [place] Magnesium SerPl-mCncon 10-25 Magnesium [Mass/Vol] 1.9 mg/dL Normal 1.7-2.3 [facility] Comment on above: Order Comment: Speci men Type: BLOOD SPECIMENOrdering Facility: [facility] Address: [address] [place], [place] [phone] Performed By: #### 1 9123-9, 06503-1, 3040-3 ####[facility] [id number] [place] [address] [place] NURSING PROGon 10-25-2022 NURSING PROG Normal [facility] Urinalysis complete panel (U )on 10-25-2022 Bilirubin Ql (U) Negative Normal Negative [facility] pital Comment on above: Order Comment: Speci men Type: URINE SPECIMENOrdering Facility: [facility] Address: [address] [place] [address] Performed By: #### 2 4356-8 ####[facility] [id number] [place] [address] [place] Clarity (Unsp spec) Clear Normal Clear [facility] Comment on above: Order Comment: Speci men Type: URINE SPECIMENOrdering Facility: [facility] Address: [address] [place] [address] Performed By: #### 2 4356-8 ####[facility] [id number] [place] [address] [place] Color (U) Colorless Normal yellow [facility] Comment on above: Order Comment: Speci men Type: URINE SPECIMENOrdering Facility: [facility] Address: [address] [place] [address] Performed By: #### 2 4356-8 ####[facility] [id number] [place] [address] [place] Epithelial cells LM.HPF (Urine sed) [#/Area] Few Normal [facility] Comment on above: Order Comment: Speci men Type: URINE SPECIMENOrdering Facility: [facility] Address: [address] [place] [address] Performed By: #### 2 4356-8 ####[facility] [id number] [place] [address] [place] Glucose Test strip (U) [Mass/Vol] Negative Normal Trace, Negative [facility] Comment on above: Order Comment: Speci men Type: URINE SPECIMENOrdering Facility: [facility] Address: [address] [place] [place] [address] Performed By: #### 2 4356-8 ####[facility] [id number] [place] [address] [place] Hemoglobin Ql (U) Negative Normal Negative, Trace [facility] Comment on above: Order Comment: Speci men Type: URINE SPECIMENOrdering Facility: [facility] Address: [address] [address] Performed By: #### 2 4356-8 ####[facility] [id number] [place] [address] [place] Ketones Ql (U) Negative Normal Negative, Trace [facility] Comment on above: Order Comment: Speci men Type: URINE SPECIMENOrdering Facility: [facility] Address: [address] [place] [address] Performed By: #### 2 4356-8 ####[facility] [id number] [place] [address] [place] Leukocyte esterase Test strip Ql (U) Negative Normal Negative, 25 Pat[place]/uL [facility] Comment on above: Order Comment: Speci men Type: URINE SPECIMENOrdering Facility: [facility] Address: [address] [place] [address] Performed By: #### 2 4356-8 ####[facility] [id number] [place] [address] [place] Nitrite Ql (U) Negative Normal Negative [facility] Comment on above: Order Comment: Speci men Type: URINE SPECIMENOrdering Facility: [facility] Address: [address] [address] Performed By: #### 2 4356-8 ####[facility] [id number] [place] [address] [place] pH (U) 6.5 [pH] Normal 5.0-8.0 [facility] Comment on above: Order Comment: Speci men Type: URINE SPECIMENOrdering Facility: [facility] Address: [address] [place] [address] Performed By: #### 2 4356-8 ####[facility] [id number] [place] [address] [place] Protein (U) [Mass/Vol] Negative Normal Trace, Negative [facility] Comment on above: Order Comment: Speci men Type: URINE SPECIMENOrdering Facility: [facility] Address: [address] [place] [address] Performed By: #### 2 4356-8 ####[facility] [id number] [place] [address] [place] RBC LM.HPF (Urine sed) [#/Area] 0-3 /HPF Normal 0-3 /HPF [facility] Comment on above: Order Comment: Speci men Type: URINE SPECIMENOrdering Facility: [facility] Address: [address] [place] [address] Performed By: #### 2 4356-8 ####[facility] [id number] [place] [address] [place] Specific gravity (U) [Rel density] 1.041 High 1.005-1.030 [facility] Comment on above: Order Comment: Speci men Type: URINE SPECIMENOrdering Facility: [facility] Address: [address] [place] [address] Performed By: #### 2 4356-8 ####[facility] [id number] [place] [address] [place] Urobilinogen Ql (U) Normal Normal Negative [facility] Comment on above: Order Comment: Speci men Type: URINE SPECIMENOrdering Facility: [facility] Address: [address] [place] [address] Performed By: #### 2 4356-8 ####[facility] [id number] [place] [address] [place] WBC LM.HPF (Urine sed) [#/Area] 0-5 /HPF Normal 0-5 /HPF [facility] Comment on above: Order Comment: Speci men Type: URINE SPECIMENOrdering Facility: [facility] Address: [place] [address] Performed By: #### 2 4356-8 ####[facility] LABORATORYCLIA [id number] [place] [address] [place] [facility] XR ABDOMEN (2 VIEWS)on 10-24 XR ABDOMEN [...] evidence of bowel obstruction. Interpreted by: Kuldip Lauglhin MD Signed by: Kuldip Laughlin MD 10/23/22 Final result Normal [facility] CBC with Diffon 10-23-2022 Abs. Basophil 0.03 k/uL Normal 0.00-0.20 [facility] Comment on above: Performed By: #### L JUDITH BROWN, CDP #### [facility] [address] [place] [address] Boiler Inspector: Baldomero Espinoza MD Abs.Imm.Granulocyte <0.03 Normal 0.00-0.[address] [facility] Comment on above: Performed By: #### L JUDITH BROWN, CDP #### [facility] [address] [place] [address] Boiler Inspector: Baldomero Espinoza MD Abs.Neutrophil (Seg) 3.51 k/uL Normal 1.50-8.[address] [facility] Comment on above: Performed By: #### L JUDITH BROWN, CDP #### [facility] [address] [place] [address] Boiler Inspector: Baldomero Espinoza MD Basophils/100 WBC (Bld) 1 % Normal 0-[address] [facility] Comment on above: Performed By: #### L IP, CP, CDP #### [address] [place], [place] [id number] Boiler Inspector: Baldomero Espinoza MD Eosinophils (Bld) [#/Vol] 0.07 10*3/uL Normal 0.00-0.[address] [facility] Comment on above: Performed By: #### L IP, CP, CDP #### [address] [place], [place] [address] Boiler Inspector: Baldomero Espinoza MD Eosinophils/100 WBC (Bld) 1 % Normal 1-[address] [facility] Comment on above: Performed By: #### L IP, CP, CDP #### [address] [place], [place] [address] Boiler Inspector: Baldomero Espinoza MD Erythrocyte distribution width (RBC) [Ratio] 12.7 % Normal 11.8-14.[address] [facility] Comment on above: Performed By: #### L IP CP, CDP #### [address] [place], [place] [address] Boiler Inspector: Baldomero Espnioza MD Hematocrit (Bld) [Volume fraction] 36.0 % Low 36.3-47.[address] [facility] Comment on above: Performed By: #### L IP, CP, CDP #### [address] [place], [place] [address] Boiler Inspector: Baldomero Espinoza MD Hemoglobin (Bld) [Mass/Vol] 12.2 g/dL Normal 11.9-15.[address] [facility] Comment on above: Performed By: #### L IP, CP, CDP #### [address] [place], [place] [address] Boiler Inspector: Baldomero Espinoza MD Immature granulocytes/100 WBC (Bld) 0 % Normal [address] [facility] Comment on above: Performed By: #### L IP, CP, CDP #### [facility] [address] [place], [place] [phone] Boiler Inspector: Baldomero Espinoza MD Lymphocytes (Bld) [#/Vol] 2.05 10*3/uL Normal 1.10-3.[address] [facility] Comment on above: Performed By: #### L IP, CP, CDP #### [facility] [address] [place], [place] [address] Boiler Inspector: Baldomero Espinoza MD Lymphocytes/100 WBC (Bld) 34 % Normal 24-[address] [facility] Comment on above: Performed By: #### L IP, CP, CDP #### [facility] [address] [place], [facility] Boiler Inspector: Baldomero Espinoza MD MCH (RBC) [Entitic mass] 30.8 pg Normal 25.2-33.[address] [facility] Comment on above: Performed By: #### L KEVIN CP, CDP #### [address] [place], [facility] Boiler Inspector: Baldomero Espinoza MD MCHC (RBC) [Mass/Vol] 33.9 g/dL Normal 28.4-34.[address] [facility] Comment on above: Performed By: #### L KEVIN CP, CDP #### [address] [place], [facility] Boiler Inspector: Baldomero Espinoza MD MCV (RBC) [Entitic vol] 90.9 fL Normal 82.6-102.[address] [facility] Comment on above: Performed By: #### L IP, CP, CDP #### [facility] [address] [place] [address] Boiler Inspector: Baldomero Espinoza MD Monocytes (Bld) [#/Vol] 0.44 10*3/uL Normal 0.10-1.[address] [facility] Comment on above: Performed By: #### L IP, CP, CDP #### [facility] [address] [place], [place] [address] Boiler Inspector: Baldomero Espinoza MD Monocytes/100 WBC (Bld) 7 % Normal 3-[address] [facility] Comment on above: Performed By: #### L IP, CP, CDP #### [address] [place], [facility] Boiler Inspector: Baldomero Espinoza MD Neutrophil (Seg) 57 % Normal 36-65 [facility] Comment on above: Performed By: #### L IP, CP, CDP #### [address] [place], [place] [address] Boiler Inspector: Baldomero Espinoza MD NRBC Automated 0.0 per 100 WBC Normal 0.[address] [facility] Comment on above: Performed By: #### L IP, CP, CDP #### [address] [place], [facility] Boiler Inspector: Baldomero Espinoza MD Platelet mean volume (Bld) [Entitic vol] 11.1 fL Normal 8.1-13.[address] [facility] Comment on above: Performed By: #### L IP, CP, CDP #### [address] [place], [place] [address] Boiler Inspector: Baldomero Espinoza MD Platelets (Bld) [#/Vol] 226 10*3/uL Normal 138-[address] [facility] Comment on above: Performed By: #### L IP, CP, CDP #### [address] [place], [place] [address] Boiler Inspector: Baldomero Espinoza MD RBC (Bld) [#/Vol] 3.96 10*6/uL Normal 3.95-5.[address] [facility] Comment on above: Performed By: #### L IP, CP, CDP #### [facility] [address] [place] [address] [place], [place] [id number] Boiler Inspector: Baldomero Espinoza MD WBC (Bld) [#/Vol] 6.1 10*3/uL Normal 3.5-11.[address] [facility] Comment on above: Performed By: #### L IP, CP, CDP #### [facility] [address] [place], [place] [address] Boiler Inspector: Baldomero Espinoza MD CNPNon 10-23-2022 CNPN Normal [facility] Comp Metabolic Profon 2022 Albumin [Mass/Vol] 4.1 g/dL Normal 3.5-5.[address] [facility] Comment on above: Performed By: #### L IP, CP, CDP #### [facility] [address] [place], [place] [id number] Boiler Inspector: Baldomero Espinoza MD Albumin/Glob Ratio 1.7 Normal 1.0-2.[address] [facility] Comment on above: Performed By: #### L IP, CP, CDP #### [facility] [address] [place], [place] [id number] Boiler Inspector: Baldomero Espinoza MD Alkaline Phos 64 U/L Normal 35-104 [facility] Comment on above: Performed By: #### L IP, CP, CDP #### [facility] [address] [place], [place] [phone] Boiler Inspector: Baldomero Espinoza MD ALT [Catalytic activity/Vol] 19 U/L Normal 5-[address] [facility] Comment on above: Performed By: #### L IP, CP, CDP #### [facility] [address] [place], [place] 1447683 Boiler Inspector: Baldomero Espinoza MD Anion gap [Moles/Vol] 11 mmol/L Normal 9-[address] [facility] Comment on above: Performed By: #### L IP, CP, CDP #### [facility] [address] [place], [place] [id number] Boiler Inspector: Baldomero Espinoza MD AST [Catalytic activity/Vol] 33 U/L High <[address] [facility] Comment on above: Performed By: #### L IP, CP, CDP #### [facility] [address] [place], [place] [id number] Boiler Inspector: Baldomero Espinoza MD Bilirubin [Mass/Vol] 0.5 mg/dL Normal 0.3-1.[address] [facility] Comment on above: Performed By: #### L IP, CP, CDP #### [facility] [address] [place], [place] [phone] Boiler Inspector: Baldomero Espinoza MD BUN/CRE Ratio 14 Normal 9-20 [facility] Comment on above: Performed By: #### L IP, CP, CDP #### [facility] [address] [place] [address] [place] [place], [place] 1835783 Boiler Inspector: Baldomero Espinoza MD Calcium [Mass/Vol] 9.0 mg/dL Normal 8.6-10.[address] [facility] Comment on above: Performed By: #### L IP, CP, CDP #### [address] [place], [place] 47[address]83 Boiler Inspector: Baldomero Espinoza MD Chloride [Moles/Vol] 103 mmol/L Normal 98-[address] [facility] Comment on above: Performed By: #### L IP, CP, CDP #### [facility] [address] [place], [place] [phone] Boiler Inspector: Baldomero Espinoza MD CO2 [Moles/Vol] 22 mmol/L Normal 20-31 [facility] Comment on above: Performed By: #### L IP, CP, CDP #### [facility] [address] [place], [place] [phone] Boiler Inspector: Baldomero Espinoza MD Creatinine [Mass/Vol] 0.7 mg/dL Normal 0.5-0.[address] [facility] Comment on above: Performed By: #### L IP CP, CDP #### [address] [place] [address] Boiler Inspector: Baldomero Espinoza MD GFR/1.73 sq M.predicted among non-blacks MDRD (S/P/Bld) [Vol rate/Area] mL/min/{1.73_m2} Normal >[address] [facility] Comment on above: Result Comment: These results [...] By: #### L IP CP, CDP #### [address] [place] [address] Boiler Inspector: Baldomero Espinoza MD Glucose [Mass/Vol] 86 mg/dL Normal 70-[address] [facility] Comment on above: Performed By: #### L KEVIN CP, CDP #### [address] [place] [address] Boiler Inspector: Baldomero Espinoza MD Potassium [Moles/Vol] 3.4 mmol/L Low 3.7-5.[address] [facility] Comment on above: Performed By: #### L IP CP, CDP #### [address] [place] [address] Boiler Inspector: Baldomero Espinoza MD Protein [Mass/Vol] 6.5 g/dL Normal 6.4-8.[address] [facility] Comment on above: Performed By: #### L IP, CP, CDP #### [address] [place] [address] Boiler Inspector: Baldomero Espinoza MD Sodium [Moles/Vol] 136 mmol/L Normal 135-[address] [facility] Comment on above: Performed By: #### L JUDITH BROWN, CDP #### [facility] [address] [place] [address] Boiler Inspector: Baldomero Espinoza MD Urea nitrogen [Mass/Vol] 10 mg/dL Normal 6-[address] [facility] Comment on above: Performed By: #### L JUDITH BROWN, CDP #### [facility] [address] [place] [address] Boiler Inspector: Baldomero Espinoza MD HCG, ,Urineon 10-23 Beta HCG ( test) Ql (U) Negative Normal NEG [facility] Comment on above: Result Comment: Spec imens with hCG levels near the threshold of the test (25 mIU/mL) may give a negative or indeterminate result. In such cases, another test should be performed with a new specimen in 48-72 hours. If early is suspected clinically in this setting, correlation with quantitative serum b-hCG level is suggested. [facility] has confirmed the use of plasma for this test. This has not been cleared or approved by the U.S. Food and Drug Administration. The FDA has determined that such clearance is not necessary. Performed By: #### U HCG, UAMIC #### [facility] [address] [place] [address] Boiler Inspector: Baldomero Espinoza MD Lactic Acidon 0 Lactate [Moles/Vol] 0.8 mmol/L Normal 0.5-2.[address] [facility] Comment on above: Performed By: #### L ACTIC #### [facility] [address] [place] [address] Boiler Inspector: Baldomero Espinoza MD Lipaseon 6 Lipase [Catalytic activity/Vol] 32 U/L Normal 13-[address] [facility] Comment on above: Performed By: #### L JUDITH BROWN, CDP #### [facility] [address] [place] [phone] Boiler Inspector: Baldomero Espinoza MD Urinalysis w/ Microon 2022 Bacteria 1+ Abnormal NONE [facility] Comment on above: Performed By: #### U HCG, UAMIC ####[facility] , [place] 8[address] Lab Director: Baldomero Espinoza MD Bilirubin, SemiQt,Ur Negative Normal NEG [facility] Comment on above: Performed By: #### U HCG, UAMIC ####[address] [place] [address] Lab Director: Baldomero Espinoza MD Blood, Urine Negative Normal NEG [facility] Comment on above: Performed By: #### U HCG, UAMIC ####[address] [place] [address] Lab Director: Baldomero Espinoza MD Clarity (U) Clear Normal CLEAR [facility] Comment on above: Performed By: #### U HCG, UAMIC ####[address] , [place] [id number] Lab Director: Baldomero Espinoza MD Color (U) Yellow Normal YEL [facility] Comment on above: Performed By: #### U HCG, UAMIC ####[address] [place] [address] Lab Director: Baldomero Espinoza MD Epithelial cells LM Ql (Urine sed) 2 TO 5 Normal 0-[address] [facility] Comment on above: Performed By: #### U HCG, UAMIC ####[address] , [place] 2533783 Lab Director: Baldomero Espinoza MD Glucose Ql (U) Negative Normal NEG [facility] Comment on above: Performed By: #### U HCG, UAMIC ####[address] , [place] 999[address]83 Lab Director: Baldomero Espinoza MD Ketones Ql (U) Negative Normal NEG [facility] Comment on above: Performed By: #### U HCG, UAMIC ####[address] , [place] 523[address]83 Lab Director: Baldomero Espinoza MD Leukocyte esterase Test strip Ql (U) Negative Normal NEG [facility] Comment on above: Performed By: #### U HCG, UAMIC ####[address] [place] [address] Lab Director: Baldomero Espinoza MD Mucus Strands TRACE Abnormal NONE [facility] Comment on above: Performed By: #### U HCG, UAMIC ####[address] [place] [address] Lab Director: Baldomero Espinoza MD Nitrite,Ur Negative Normal NEG [facility] Comment on above: Performed By: #### U HCG, UAMIC ####[address] [place] [address] Lab Director: Baldmoero Espinoza MD PH,Ur 6.5 Normal 5.0-9.[address] [facility] Comment on above: Performed By: #### U HCG, UAMIC ####[address] [place] [address] Lab Director: Baldomero Espinoza MD Protein Ql (U) Negative Normal NEG [facility] Comment on above: Performed By: #### U HCG, UAMIC ####[facility] [place] [address] , [place] [address] Lab Director: Baldomero Espnioza MD Spec. [place],Ur 1.010 Normal 1.010-1.020 [facility] Comment on above: Performed By: #### U HCG, UAMIC ####[facility] [place] [address] Lab Director: Baldomero Espinoza MD Urine RBC's 0 TO 2 Normal 0-[address] [facility] Comment on above: Performed By: #### U HCG, UAMIC ####[facility] [place] [address] lab Director: Baldomero Espinoza MD Urine WBC's 0 TO 2 Normal 0-[address] [facility] Comment on above: Performed By: #### U HCG, UAMIC ####[facility] [place] [address] lab Director: Baldomero Espinoza MD Urobilinogen,Ur Normal Normal 0.0-1.0 [facility] Comment on above: Performed By: #### U HCG, UAMIC ####[address] [place] [address] lab Director: Baldomero Espinoza MD Auto Diffon 10-20-2022 Basophils/100 WBC (Bld) 1.0 % Normal 0.0-2.0 [facility] Comment on above: Order Comment: Order Added by Discern Expert. Performed By: #### 2 349586, 7759490, 4863763, 73036580, 1872600 ####[facility] [address] [place] [address] Basophils/Leukocyte s Auto (Bld) [Pure # fraction] 0.0 E9/L Normal 0.0-0.2 [facility] Comment on above: Order Comment: Order Added by Discern Expert. Performed By: #### 2 173263, 4513691, 7912365, 78315956, 4095572 ####[facility] [address] [place] [address] Eosinophils/100 WBC (Bld) 2.2 % Normal 0.0-8.0 [facility] Comment on above: Order Comment: Order Added by Discern Expert. Performed By: #### 2 899167, 3871946, 0841020, 75430542, 1260083 ####[facility] [address] [place] [address] Eosinophils/Leukocy stevan Auto (Bld) [Pure # fraction] 0.1 E9/L Normal 0.0-0.5 [facility] Comment on above: Order Comment: Order Added by Discern Expert. Performed By: #### 2 946877, 4499026, 6188028, 77030189, 8280814 ####[address] [place] [address] Lymphocytes/100 WBC (Bld) 35.9 % Normal 14.0-50.0 [facility] Comment on above: Order Comment: Order Added by Discern Expert. Performed By: #### 2 683085, 1606655, 1530316, 35147626, 7286347 ####[address] [place] [address] Lymphocytes/Leukocy stevan Auto (Bld) [Pure # fraction] 1.6 E9/L Normal 1.0-4.0 [facility] Comment on above: Order Comment: Order Added by Discern Expert. Performed By: #### 2 334457, 8628653, 0503938, 17019563, 7847301 ####[address] [address] Monocytes/100 WBC (Bld) 5.9 % Normal 4.0-14.0 [facility] Comment on above: Order Comment: Order Added by Discern Expert. Performed By: #### 2 402625, 4235473, 7291531, 23721484, 3891486 ####[address] [place] [address] Monocytes/Leukocyte s Auto (Bld) [Pure # fraction] 0.3 E9/L Normal 0.2-1.0 [facility] Comment on above: Order Comment: Order Added by Discern Expert. Performed By: #### 2 340914, 8641196, 6656692, 14013332, 0416568 ####[address] [place] [address] Neutrophils/100 WBC (Bld) 55.0 % Normal 36.0-75.0 [facility] Comment on above: Order Comment: Order Added by Discern Expert. Performed By: #### 2 926844, 8515997, 9102259, 56323546, 8606887 ####[address] [place] [address] Neutrophils/Leukocy stevan Auto (Bld) [Pure # fraction] 2.5 E9/L Normal 2.0-7.5 [facility] Comment on above: Order Comment: Order Added by Discern Expert. Performed By: #### 2 388039, 5206561, 9399268, 26591923, 6390188 ####[address] [address] CBC w/ Auto Diffon 3 Erythrocyte distribution width (RBC) [Ratio] 14.0 % Normal 10.9-14.2 [facility] Comment on above: Performed By: #### 2 255361, 4854231, 8599091, 44860204, 9854496 ####[address] [address] Hematocrit (Bld) [Volume fraction] 40.1 % Normal 34.0-46.0 [facility] Comment on above: Performed By: #### 2 512038, 7967261, 1045934, 35218383, 4343415 ####[address] [address] Hemoglobin (Bld) [Mass/Vol] 13.7 g/dL Normal 12.0-16.0 [facility] Comment on above: Performed By: #### 2 561229, 3866227, 4699023, 13841768, 2619725 ####[address] [address] MCH (RBC) [Entitic mass] 30.7 pg Normal 27.0-34.0 [facility] Comment on above: Performed By: #### 2 298844, 2167429, 6803828, 13729085, 7352039 ####[address] [address] MCHC (RBC) [Mass/Vol] 34.2 g/dL Normal 31.4-36.0 [facility] Comment on above: Performed By: #### 2 755984, 2015312, 1038130, 14829100, 0377545 ####[address] [place] [address] MCV (RBC) [Entitic vol] 89.9 fL Normal 80.0-100.0 [facility] Comment on above: Performed By: #### 2 845560, 8021725, 0430884, 42170491, 5124854 ####[address] [place] [address] Platelet mean volume (Bld) [Entitic vol] 9.7 fL Normal 6.4-10.8 [facility] Comment on above: Performed By: #### 2 652198, 8764107, 7533440, 94346333, 0783291 ####[place] Platelets (Bld) [#/Vol] 258.0 E9/L Normal 150.0-500.0 [facility] Comment on above: Performed By: #### 2 099236, 4075917, 8798990, 69995853, 1266239 ####[place] [address] RBC (Bld) [#/Vol] 4.5 E12/L Normal 4.3-5.9 [facility] Comment on above: Performed By: #### 2 014557, 5130108, 0279940, 44741107, 4836220 ####[address] [place] [address] WBC corrected for nucl RBC Auto (Bld) [#/Vol] 4.5 E9/L Normal 4.0-11.0 [facility] Comment on above: Performed By: #### 2 756754, 2003756, 7720084, 14960874, 7991471 ####[address] [address] CHEMISTRYOrdered By: SYSTEM SYSTEM on 10-20-2022 Albumin [...] rate/Area] 87 mL/min/1.73 m2 Normal >=59mL/min/1.73 m2 [facility] Chem S Lipase [Catalytic activity/Vol] 35 U/L [...] ratio] 1.4 {ratio} Normal 1.1 - 2.2 [facility] Chem S Anion gap [Moles/Vol] 11 mmol/L Normal 6 - 16 mEq/L [facility] Chem S Globulin (S) [Mass/Vol] 3.0 g/dL Normal 1.4 - 4.0 gm/dL [facility] Chem S Glucose [Mass/Vol] 86 mg/dL Normal 55 - 199 mg/dL [facility] Chem S Urea nitrogen/Creatinine [Mass ratio] 12 mg/mg Normal 10 - [facility] Chem S CMPon 10-20-2022 Albumin/Globulin (S) [Mass conc ratio] 1.4 Normal 1.1-2.2 [facility] Comment on above: Performed By: #### 2 876249, 8399376, 5296326, 23899889, 3685698 ####[facility] [address] [place] [address] Anion gap [Moles/Vol] 11 mmol/L Normal 6-16 [facility] Comment on above: Performed By: #### 2 939998, 2109935, 4746650, 41242637, 2429490 ####[facility] [address] [place] [address] Globulin (S) [Mass/Vol] 3.0 g/dL Normal 1.4-4.0 [facility] Comment on above: Performed By: #### 2 624095, 8916483, 4008837, 36727735, 9107532 ####[facility] [address] [place] [address] Glucose [Mass/Vol] 86 mg/dL Normal 55-199 [facility] Comment on above: Result Comment: If t his glucose result represents a fasting glucose, interpretation should refer to the following reference range: 55-99 mg/dL Performed By: #### 2 869376, 8876788, 2729767, 43705513, 8208181 ####[facility] [address] [place] [address] Urea nitrogen/Creatinine [Mass ratio] 12 No Units Normal 10- [facility] Comment on above: Performed By: #### 2 658526, 0401458, 7863506, 48582213, 5296712 ####[facility] [address] [place] [address] Albumin [Mass/Vol] 4.2 g/dL Normal 3.3-5.0 [facility] Comment on above: Performed By: #### 2 725332, 0415437, 2435257, 31019397, 4273715 ####[facility] [address] [place] [address] ALP [Catalytic activity/Vol] 55 Int._Unit/L Normal 21-98 [facility] Comment on above: Performed By: #### 2 847458, 1831971, 1105132, 70094630, 6233778 ####[facility] [address] [place] [address] ALT No additional P-5'-P [Catalytic activity/Vol] 27 Int._Unit/L Normal 6-46 [facility] Comment on above: Performed By: #### 2 442082, 4937522, 2730750, 79497151, 7815706 ####[facility] [address] [place] [address] AST [Catalytic activity/Vol] 42 Int._Unit/L Normal 5-43 [facility] Comment on above: Performed By: #### 2 596853, 3687942, 8383794, 95655517, 3461412 ####[facility] [address] [place] [address] Bilirubin [Mass/Vol] 0.4 mg/dL Normal 0.0-1.1 [facility] Comment on above: Performed By: #### 2 883543, 3073746, 7910707, 29470696, 3462375 ####[facility] [address] [place] [address] Calcium [Mass/Vol] 9.0 mg/dL Normal 8.9-11.1 [facility] Comment on above: Performed By: #### 2 699622, 2699646, 4403229, 99645332, 1593896 ####[facility] [address] [place] [address] Chloride [Moles/Vol] 108 mmol/L Normal 101-111 [facility] Comment on above: Performed By: #### 2 402909, 6782130, 6842778, 64077472, 0826717 ####[facility] [address] [place] [address] CO2 [Moles/Vol] 24 mmol/L Normal 21-31 [facility] Comment on above: Performed By: #### 2 159128, 4178562, 6440992, 31536223, 1013818 ####[facility] [address] [place] [address] Creatinine [Mass/Vol] 0.9 mg/dL Normal 0.5-1.3 [facility] Comment on above: Performed By: #### 2 167259, 2607780, 8425555, 38379460, 4347623 ####[facility] [address] [place] [address] Potassium [Moles/Vol] 3.8 mmol/L Normal 3.5-5.3 [facility] Comment on above: Performed By: #### 2 175121, 1876874, 5300364, 64048836, 9231532 ####[facility] [address] [place] [address] Protein [Mass/Vol] 7.2 g/dL Normal 6.0-7.8 [facility] Comment on above: Performed By: #### 2 611525, 2531858, 6826831, 90420876, 8853093 ####[facility] [address] [place] [address] Sodium [Moles/Vol] 139 mmol/L Normal 135-145 [facility] Comment on above: Performed By: #### 2 252528, 6762349, 2315810, 27737341, 2010980 ####[facility] [address] [place] [address] Urea nitrogen [Mass/Vol] 11 mg/dL Normal 5-21 [facility] Comment on above: Performed By: #### 2 714840, 4112503, 6877742, 58664300, 5370651 ####[facility] [address] [place] [address] CNPNon 10-20-2022 CNPN Normal [facility] CT Abdomen/Pelvis w/o Contra ston 10-20-2022 CT Abdomen/Pelvis w/o Contrast Normal [facility] CT Chest w/o Contraston CT Chest w/o Contrast Normal [facility] Consent for Treatmenton Consent for Treatment [id number]#[id number]:127 Normal [facility] Discharge Instructionson Discharge Instructions [id number]#1.00CD:127 Normal [facility] ED Clinical Summaryon 2022 ED Clinical Summary Normal [facility] ED Patient Education Noteon 10-20-2022 ED Patient Education Note Normal [facility] ED Patient Summaryon 023 ED Patient Summary Normal [facility] HEMATOLOGYOrdered By: SYSTEM SYSTEM on 10-20-2022 [...] 2.5 E9/L Normal 2.0 - 7.5 E9/L [facility] HemeAutoSS HEMATOLOGYOrdered By: Aliyah Renteria on 10-20-2022 [...] 9.7 fL Normal 6.4 - 10.8 fL [facility] HemeAutoSS Platelets (Bld) [#/Vol] 258.0 E9/L Normal 150.0 - 500.0 E9/L FT HemeAutoSS RBC (Bld) [#/Vol] 4.5 E12/L Normal 4.3 - 5.9 E12/L FT HemeAutoSS WBC corrected for nucl RBC Auto (Bld) [#/Vol] 4.5 E9/L Normal 4.0 - 11.0 E9/L [facility] HemeAutoSS Lipase Levelon 10-20-2022 Lipase [Catalytic activity/Vol] 35 U/L Normal 13-58 [facility] Comment on above: Performed By: #### 2 462900, 2204824, 8646978, 85253374, 7207005 ####[facility] [address] [place] [address] Prescriptions/Work Noteson 0 10-20-2022 Prescriptions/Work Notes [id number]#1.00CD:127 Normal [facility] Prescriptions/Work Notes [id number]#1.00CD:127 Normal [facility] Comment on above: Other Comment: scann ed in error UA With Cult Reflexon 2022 Bilirubin Ql (U) Negative Normal Negative [facility] Comment on above: Performed By: #### 1 9866852 ####[facility] [address] [place] [address] Clarity (U) CLEAR Normal Clear [facility] Comment on above: Performed By: #### 1 2985383 ####[facility] [address] [place] [address] Color (U) YELLOW Normal Yellow [facility] Comment on above: Performed By: #### 1 8392552 ####[facility] [address] [place] [address] Epithelial cells.squamous LM.HPF (Urine sed) [#/Area] 3-4 Normal 0-2 [facility] Comment on above: Performed By: #### 1 2998954 ####[facility] [address] [place] [address] Glucose Test strip (U) [Mass/Vol] Negative Normal Negative [facility] Comment on above: Performed By: #### 1 4224467 ####[facility] [address] [place] [address] Hemoglobin Ql (U) Negative Normal Negative [facility] Comment on above: Performed By: #### 1 4171752 ####[facility] [address] [place] [address] Ketones (U) [Mass/Vol] Negative Normal Negative [facility] Comment on above: Performed By: #### 1 3475316 ####[facility] [address] [place] [address] [place].plasma/Lith ium.RBC (Bld) [Mass ratio] 0-3 Normal 0-3 [facility] Comment on above: Performed By: #### 1 6352835 ####[facility] [address] [place] [address] Nitrite Ql (U) Negative Normal Negative [facility] Comment on above: Performed By: #### 1 5400644 ####[address] [address] pH (U) 7.5 [pH] Invalid Interpretation Code 5.0-9.0 [facility] Comment on above: Performed By: #### 1 9233623 ####[address] [address] Protein (U) [Mass/Vol] Negative Normal Negative [facility] Comment on above: Performed By: #### 1 1364660 ####[address] [address] Specific gravity (U) [Rel density] 1.015 Invalid Interpretation Code 1.005-1.030 [facility] Comment on above: Performed By: #### 1 6623974 ####[address] [address] Type of Urine collection method Clean Catch Normal [facility] Comment on above: Performed By: #### 1 3806634 ####[address] [address] Urobilinogen Qn (U) 0.2 {Munir'U}/dL Normal 0.0-1.0 [facility] Comment on above: Performed By: #### 1 9810053 ####[address] [address] WBC Auto Ql (U) Negative Normal Negative [facility] Comment on above: Performed By: #### 1 9347541 ####[facility] [address] [place] [address] WBC LM.HPF (Urine sed) [#/Area] 0-5 Normal 0-5 [facility] Comment on above: Performed By: #### 1 9582331 ####[facility] [address] [place] [address] URINALYSISOrdered By: Edilberto Meng on 10-20-2022 Bilirubin [...] AM) Normal Negative [facility] UA Auto SS [place].plasma/Lith ium.RBC (Bld) [Mass ratio] 0-3 /HPF Normal [...] [facility] UA Auto SS Urobilinogen Qn (U) 0.9020509 {Munir'U}/dL Normal 0.0 - 1.0 EU/dL [facility] UA Auto SS WBC Auto Ql (U) Negative (10/20/22 10:25 AM) Normal Negative [facility] UA Auto SS WBC LM.HPF (Urine sed) [#/Area] 0-5 /HPF Normal 0-5/HPF [facility] UA Auto SS eGFRon 10-20-2022 GFR/1.73 sq M.predicted among non-blacks MDRD (S/P/Bld) [Vol rate/Area] 87 mL/min/1.73 m2 Normal >=59 [facility] Comment on above: Order Comment: Order added by Discern Expert. Result Comment: Stylist Apprentice alejandra kidney disease could be indicated at eGFR's of less than 60 mL/min/1.73m2. Kidney failure is indicated at less than 15 mL/min/1.73m2. Performed By: #### 2 697073, 5034095, 1590485, 38054668, 9243416 ####[facility] [address] [place] [address] Auto DiffOrdered By: SYSTEM SYSTEM on 10-19-2022 Basophils/100 WBC (Bld) 0.8 % Normal 0.0-2.0 [facility] HemeAutoSS Comment on above: Order Comment: Order Added by Mariela Expert. Performed By: #### 2 423150, 6716126, 06037908, 0807117, 9567571, 10698994, 6090857 ####[facility] [address] [place] [address] Basophils/Leukocyte s Auto (Bld) [Pure # fraction] 0.0 E9/L Normal 0.0-0.2 [facility] HemeAutoSS Comment on above: Order Comment: Order Added by Discern Expert. Performed By: #### 2 764469, 0237101, 82571415, 5208222, 8373106, 22922231, 9479277 ####[facility] [address] [place] [address] Eosinophils/100 WBC (Bld) 3.5 % Normal 0.0-8.0 [facility] HemeAutoSS Comment on above: Order Comment: Order Added by Mariela Expert. Performed By: #### 2 314740, 1100864, 53803601, 4562894, 9948317, 59975195, 8421981 ####[facility] [address] [place] [address] Eosinophils/Leukocy stevan Auto (Bld) [Pure # fraction] 0.2 E9/L Normal 0.0-0.5 [facility] Comment on above: Order Comment: Order Added by Discern Expert. Performed By: #### 2 035054, 9398414, 10950770, 2957698, 2604270, 24035326, 9099802 ####[address] [place] [address] Lymphocytes/100 WBC (Bld) 47.3 % Normal 14.0-50.0 [facility] Comment on above: Order Comment: Order Added by Discern Expert. Performed By: #### 2 176080, 4865164, 18834395, 4236769, 3063738, 27023851, 7861847 ####[address] [address] Lymphocytes/Leukocy stevan Auto (Bld) [Pure # fraction] 2.1 E9/L Normal 1.0-4.0 [facility]Auto[facility] Comment on above: Order Comment: Order Added by Mariela Expert. Performed By: #### 2 671728, 1624771, 44711348, 3904107, 0305031, 28976183, 1466119 ####[address] [address] Monocytes/100 WBC (Bld) 6.6 % Normal 4.0-14.0 [facility] Comment on above: Order Comment: Order Added by Mariela Expert. Performed By: #### 2 209495, 4030485, 78968519, 0440387, 4063857, 52428324, 8557997 ####[address] [address] Monocytes/Leukocyte s Auto (Bld) [Pure # fraction] 0.3 E9/L Normal 0.2-1.0 [facility] Comment on above: Order Comment: Order Added by Mariela Expert. Performed By: #### 2 502241, 4977945, 52820638, 8873002, 9586297, 51229831, 2859565 ####[address] [address] Neutrophils/100 WBC (Bld) 41.8 % Normal 36.0-75.0 [facility] HemeAutoSS Comment on above: Order Comment: Order Added by Discern Expert. Performed By: #### 2 747442, 7035459, 87101072, 5000360, 2379961, 77042279, 2839220 ####[place] [address] [place] [address] Neutrophils/Leukocy stevan Auto (Bld) [Pure # fraction] 1.8 E9/L Low 2.0-7.5 [facility] HemeAutoSS Comment on above: Order Comment: Order Added by Discern Expert. Performed By: #### 2 161604, 1035590, 80180520, 1217954, 6000077, 82637370, 5557018 ####[place] [address] [address] BMPOrdered By: SYSTEM SYSTEM on 10-19-2022 Creatinine [Mass/Vol] 0.8 mg/dL Normal 0.5-1.3 [facility] Comment on above: Performed By: #### 2 444823, 7252780, 21508637, 1176442, 2865435, 19021095, 9107845 ####[place] [address] [address] Urea nitrogen [Mass/Vol] 9 mg/dL Normal 5-21 [facility] Comment on above: Performed By: #### 2 055158, 5987669, 93446157, 2089088, 6875047, 32125662, 7697945 ####[place] [address] [place] [address] Anion gap [Moles/Vol] 10 mmol/L Normal 6-16 [facility] Comment on above: Performed By: #### 2 276814, 4252624, 47124454, 2398323, 1879082, 50040840, 4569723 ####[place] [address] [place] [address] Calcium [Mass/Vol] 9.3 mg/dL Normal 8.9-11.1 [facility] R emisol Comment on above: Performed By: #### 2 606162, 7791276, 32527406, 2032231, 1178276, 60531535, 7631475 ####[place] [facility] [address] [place] [address] Chloride [Moles/Vol] 108 mmol/L Normal 101-111 [facility] Comment on above: Performed By: #### 2 568212, 5992249, 54273795, 9778403, 7599971, 54121367, 3595546 ####[address] [place] [address] CO2 [Moles/Vol] 25 mmol/L Normal 21-31 [facility] Jonathan blade Comment on above: Performed By: #### 2 403859, 9502592, 54075572, 7731375, 8486917, 10934842, 5524737 ####[address] [address] Glucose [Mass/Vol] 83 mg/dL Normal 55-199 [facility] R emisol Comment on above: Result Comment: If t his glucose result represents a fasting glucose, interpretation should refer to the following reference range: 55-99 mg/dL Performed By: #### 2 693651, 7016810, 43422118, 5112385, 5839776, 50758012, 7162497 ####[place] [address] [address] Potassium [Moles/Vol] 4.1 mmol/L Normal 3.5-5.3 [facility] Remisol Comment on above: Performed By: #### 2 407442, 3880017, 69646665, 6370218, 5488090, 34700272, 8984576 ####[address] [place] [address] Sodium [Moles/Vol] 139 mmol/L Normal 135-145 [facility] R emisol Comment on above: Performed By: #### 2 695562, 1600003, 51354501, 6758916, 3958196, 71169393, 5744081 ####[place] [address] [address] BMPon 10-19-2022 Urea nitrogen/Creatinine [Mass ratio] 11 No Units Normal 10-20 [facility] Comment on above: Performed By: #### 2 062461, 8976176, 17597615, 4001744, 5016415, 46809431, 1169271 ####[facility] [address] [place] [address] CBC w/ Auto DiffOrdered By: Kaye Case on 10-19-2022 Erythrocyte distribution width (RBC) [Ratio] 13.7 % Normal 10.9-14.2 [facility] HemeAutoSS Comment on above: Performed By: #### 2 977942, 8671082, 19016838, 5660894, 8443593, 41964730, 2975702 ####[facility] [address] [place] [address] Hematocrit (Bld) [Volume fraction] 40.7 % Normal 34.0-46.0 [facility] HemeAutoSS Comment on above: Performed By: #### 2 399019, 5111400, 75620502, 1339044, 3901718, 95391973, 4758453 ####[facility] [address] [place] [address] Hemoglobin (Bld) [Mass/Vol] 14.1 g/dL Normal 12.0-16.0 [facility] HemeAutoSS Comment on above: Performed By: #### 2 319952, 8831764, 16266661, 4486609, 8843490, 85395525, 6780514 ####[facility] [address] [place] [address] MCH (RBC) [Entitic mass] 31.0 pg Normal 27.0-34.0 [facility] HemeAutoSS Comment on above: Performed By: #### 2 405624, 8904027, 97479279, 4107773, 7249127, 31273459, 9028007 ####[address] [address] MCHC (RBC) [Mass/Vol] 34.5 g/dL Normal 31.4-36.0 [facility] HemeAutoSS Comment on above: Performed By: #### 2 335939, 0071650, 92507380, 0692624, 9226456, 32993260, 0710132 ####[place] [address] [address] MCV (RBC) [Entitic vol] 89.8 fL Normal 80.0-100.0 [facility] HemeAutoSS Comment on above: Performed By: #### 2 611959, 0756870, 03588135, 3891570, 8368220, 79666158, 6814681 ####[place] [address] [address] Platelet mean volume (Bld) [Entitic vol] 10.3 fL Normal 6.4-10.8 [facility] HemeAutoSS Comment on above: Performed By: #### 2 342267, 5745053, 18561460, 3984190, 3591658, 01413644, 2782664 ####[place] [address] Platelets (Bld) [#/Vol] 245.0 E9/L Normal 150.0-500.0 [facility] HemeAutoSS Comment on above: Performed By: #### 2 232024, 7028559, 49795041, 6668086, 9160700, 40779217, 5101364 ####[place] [address] [address] RBC (Bld) [#/Vol] 4.5 E12/L Normal 4.3-5.9 [facility]eAutoSS Comment on above: Performed By: #### 2 000413, 1157096, 02379059, 1769941, 4056022, 47260931, 7507129 ####[place] [address] [address] WBC corrected for nucl RBC Auto (Bld) [#/Vol] 4.4 E9/L Normal 4.0-11.0 [facility] HemeAutoSS Comment on above: Performed By: #### 2 672481, 6154155, 68744590, 6360943, 5715690, 15055154, 8147455 ####[facility] [address] [place] [address] CHEMISTRYOrdered By: SYSTEM SYSTEM on 10-19-2022 Albumin/Globulin [...] Consent for Treatmenton Consent for Treatment [id number] C7#1.00CD:127 Normal [facility] Discharge Instructionson Discharge Instructions [id number] 6#1.00CD:127 Normal [facility] ED Clinical Summaryon 2022 ED Clinical Summary Normal [facility] ED Note-Physicianon 10-20-19 ED Note-Physician Normal [facility] Comment on above: Result Comment: Elec tronically Signed By: Earnest Jett DO\.br\Date and Time Signed: 10/19/22 13:41 EDT ED Patient Education Noteon 10-19-2022 ED Patient Education Note Normal [facility] ED Patient Summaryon 023 ED Patient Summary Normal [facility] Hep Func Panelon 10-19-2022 Bilirubin.indirect [Mass or moles/Vol] UTC Abnormal 0.1-0.9 [facility] Comment on above: Result Comment: Resu lt verified by Discern Rule. Performed result UTC (Unable to Calculate) was sent as an Alpha code due the inability to calculate a valid numeric value. Performed By: #### 2 755057, 6268888, 34963569, 0036927, 4949634, 06974154, 1089425 ####[address] [place] [address] Albumin/Globulin (S) [Mass conc ratio] 1.5 Normal 1.1-2.2 [facility] Comment on above: Performed By: #### 2 876979, 0515567, 37630203, 2774485, 2549263, 57561536, 8051368 ####[address] [place] [address] ALP [Catalytic activity/Vol] 63 Int._Unit/L Normal 21-98 [facility] Comment on above: Performed By: #### 2 356763, 2453965, 35939300, 2618775, 6947756, 73159844, 6313166 ####[address] [address] ALT No additional P-5'-P [Catalytic activity/Vol] 30 Int._Unit/L Normal 6-46 [facility] Comment on above: Performed By: #### 2 300700, 2265734, 44987210, 4471734, 9932648, 55075771, 4389422 ####[address] [place] [address] AST [Catalytic activity/Vol] 47 Int._Unit/L High 5-43 [facility] Comment on above: Performed By: #### 2 247619, 2485389, 64535644, 5347506, 3273624, 11919880, 2826552 ####[address] [place] [address] Hep Func PanelOrdered By: Insuritas SYSTEM on 10-19-2022 Albumin [Mass/Vol] 4.4 g/dL Normal 3.3-5.0 [facility] R emisol Comment on above: Performed By: #### 2 014803, 5885808, 52979669, 4706072, 2158516, 06372750, 8938681 ####[place] [address] [place] [address] Bilirubin [Mass/Vol] 0.5 mg/dL Normal 0.0-1.1 [facility] Comment on above: Performed By: #### 2 370154, 0313295, 43083155, 4527441, 1821135, 98921234, 3469865 ####[facility] [address] [place] [address] Globulin (S) [Mass/Vol] 3.0 g/dL Normal 1.4-4.0 [facility] Comment on above: Performed By: #### 2 067390, 5084161, 12940346, 5162140, 2255242, 27444972, 0188190 ####[facility] [address] [place] [address] Protein [Mass/Vol] 7.4 g/dL Normal 6.0-7.8 [facility] R emisol Comment on above: Performed By: #### 2 899434, 6160052, 60107256, 4439126, 2580083, 32068530, 7569890 ####[address] [address] Bilirubin.direct [Mass/Vol] mg/dL Normal 0.1-0.4 [facility] Comment on above: Performed By: #### 2 854271, 3735153, 70523825, 4277957, 0056436, 59431675, 1789231 ####[address] [address] Lipase LevelOrdered By: SYST EM SYSTEM on 10-19-2022 Lipase [Catalytic activity/Vol] 89 U/L High 13-58 [facility] Comment on above: Performed By: #### 2 163887, 0363879, 95141875, 9026362, 9361331, 86311609, 8432912 ####[address] [address] Prescriptions/Work Noteson 0 10-19-2022 Prescriptions/Work Notes [id number] 7#1.00CD:127 Normal [facility] TSH With T4fr ReflexOrdered By: SYSTEM SYSTEM on 10-19-2022 TSH Qn 0.68 m[IU]/L Normal 0.34-5.60 [facility] Remisol Comment on above: Performed By: #### 2 670680, 3621649, 75211634, 0519520, 2001805, 64209134, 7076943 ####[facility] [address] [place] [address] UA With Cult Reflexon 2022 Bilirubin Ql (U) Negative Normal Negative [facility] Comment on above: Performed By: #### 1 0296562 ####[address] [address] Clarity (U) CLEAR Normal Clear [facility] Comment on above: Performed By: #### 1 9975954 ####[address] [address] Color (U) YELLOW Normal Yellow [facility] Comment on above: Performed By: #### 1 6709286 ####[facility] [address] [place] [address] Epithelial cells.squamous LM.HPF (Urine sed) [#/Area] 0-2 Normal 0-2 [facility] Comment on above: Performed By: #### 1 9620143 ####[facility] [address] [place] [address] Glucose Test strip (U) [Mass/Vol] Negative Normal Negative [facility] Comment on above: Performed By: #### 1 5264106 ####[facility] [address] [place] [address] Hemoglobin Ql (U) Negative Normal Negative [facility] Comment on above: Performed By: #### 1 2622157 ####[address] [address] Ketones (U) [Mass/Vol] Negative Normal Negative [facility] Comment on above: Performed By: #### 1 0299053 ####[address] [address] [place].plasma/Lith ium.RBC (Bld) [Mass ratio] 0-3 Normal 0-3 [facility] Comment on above: Performed By: #### 1 2768744 ####[address] [address] Nitrite Ql (U) Negative Normal Negative [facility] Comment on above: Performed By: #### 1 0052648 ####[address] [address] pH (U) 7.5 [pH] Invalid Interpretation Code 5.0-9.0 [facility] Comment on above: Performed By: #### 1 4038058 ####[address] [address] Protein (U) [Mass/Vol] Negative Normal Negative [facility] Comment on above: Performed By: #### 1 4821228 ####[address] [address] Specific gravity (U) [Rel density] 1.010 Invalid Interpretation Code 1.005-1.030 [facility] Comment on above: Performed By: #### 1 6962031 ####[address] [address] Type of Urine collection method Clean Catch Normal [facility] Comment on above: Performed By: #### 1 4051169 ####[address] [address] Urobilinogen Qn (U) 0.2 {Munir'U}/dL Normal 0.0-1.0 [facility] Comment on above: Performed By: #### 1 4140872 ####[address] [address] WBC Auto Ql (U) Negative Normal Negative [facility] Comment on above: Performed By: #### 1 5107515 ####[address] [address] WBC LM.HPF (Urine sed) [#/Area] 0-5 Normal 0-5 [facility] Comment on above: Performed By: #### 1 4407574 ####[facility] [address] [place] [address] URINALYSISOrdered By: Kaye brito on 10-19-2022 Bilirubin [...] AM) Normal Negative [facility] UA Auto SS [place].plasma/Lith ium.RBC (Bld) [Mass ratio] 0-3 /HPF Normal [...] [facility] UA Auto SS Urobilinogen Qn (U) 0.8845987 {Munir'U}/dL Normal 0.0 - 1.0 EU/dL [facility] UA Auto SS WBC Auto Ql (U) Negative (10/19/22 9:18 AM) Normal Negative [facility] UA Auto SS WBC LM.HPF (Urine sed) [#/Area] 0-5 /HPF Normal 0-5/HPF [facility] UA Auto SS XR Chest 2 Viewson 3 XR Chest 2 Views Normal [place] [facility] eGFROrdered By: SYSTEM ROMYE M on 10-19-2022 GFR/1.73 sq M.predicted among non-blacks MDRD (S/P/Bld) [Vol rate/Area] 100 mL/min/1.73 m2 Normal >=59 [facility] Chem S Comment on above: Order Comment: Order added by Discern Expert. Result Comment: Stylist Apprentice alejandra kidney disease could be indicated at eGFR's of less than 60 mL/min/1.73m2. Kidney failure is indicated at less than 15 mL/min/1.73m2. Performed By: #### 2 929867, 2020627, 73483094, 6266618, 3966257, 95391039, 6241666 ####[facility] [address] [place] [address] [facility] ALLIED HEALTH HNO ID: [id number] Author: Karina Gonzales Tech Service: ? Author [...] 2022 TIME: 10:07 AM Normal [facility] CBC W Auto Differential pane l (Bld)on 10-18-2022 Basophils (Bld) [#/Vol] 0.03 10*3/uL Normal <0.11 [facility] Comment on above: Order Comment: Speci men Type: BLOOD SPECIMEN Ordering Facility: [facility] Address: [address] [place] [address] Performed By: #### 5 7021-8 #### [facility] CLIA [id number] [address] [place] Basophils/100 WBC (Bld) 0.8 % Normal [facility] Comment on above: Order Comment: Speci men Type: BLOOD SPECIMEN Ordering Facility: [facility] Address: [address] [place] [address] Performed By: #### 5 7021-8 #### [facility] CLIA [id number] [address] [place] [address] [place] Differential cell count method Nom (Bld) Auto Normal [facility] Comment on above: Order Comment: Speci men Type: BLOOD SPECIMEN Ordering Facility: [facility] Address: [address] [address] Performed By: #### 5 7021-8 #### [facility] CLIA [id number] [address] OF [facility] Eosinophils (Bld) [#/Vol] 0.14 10*3/uL Normal <0.46 [facility] Comment on above: Order Comment: Speci men Type: BLOOD SPECIMEN Ordering Facility: [facility] Address: [address] [address] Performed By: #### 5 7021-8 #### [facility] CLIA [id number] [address] Eosinophils/100 WBC (Bld) 3.7 % Normal [facility] Comment on above: Order Comment: Speci men Type: BLOOD SPECIMEN Ordering Facility: [facility] Address: [address] [address] Performed By: #### 5 7021-8 #### [facility] CLIA [id number] [address] Erythrocyte distribution width (RBC) [Ratio] 12.7 % Normal 11.5-15.0 [facility] Comment on above: Order Comment: Speci men Type: BLOOD SPECIMEN Ordering Facility: [facility] Address: [address] [address] Performed By: #### 5 7021-8 #### [facility] CLIA [id number] [address] [place] Hematocrit (Bld) [Volume fraction] 38.5 % Normal 36.0-46.0 [facility] Comment on above: Order Comment: Speci men Type: BLOOD SPECIMEN Ordering Facility: [facility] Address: [address] [address] Performed By: #### 5 7021-8 #### [facility] CLIA [id number] [address] [place] Hemoglobin (Bld) [Mass/Vol] 12.9 g/dL Normal 11.5-15.5 [facility] Comment on above: Order Comment: Speci men Type: BLOOD SPECIMEN Ordering Facility: [facility] Address: [address] [address] Performed By: #### 5 7021-8 #### [facility] CLIA [id number] [address] Immature granulocytes (Bld) [#/Vol] 10*3/uL Normal <0.10 [facility] Comment on above: Order Comment: Speci men Type: BLOOD SPECIMEN Ordering Facility: [facility] Address: [address] [address] Performed By: #### 5 7021-8 #### [facility] CLIA [id number] [address] Immature granulocytes/100 WBC (Bld) 0.3 % Normal [facility] Comment on above: Order Comment: Speci men Type: BLOOD SPECIMEN Ordering Facility: [facility] Address: [address] [address] Performed By: #### 5 7021-8 #### [facility] CLIA [id number] [address] Lymphocytes (Bld) [#/Vol] 1.66 10*3/uL Normal 1.00-4.00 [facility] Comment on above: Order Comment: Speci men Type: BLOOD SPECIMEN Ordering Facility: [facility] Address: [address] [place] [address] Performed By: #### 5 7021-8 #### [facility] CLIA [id number] [address] Lymphocytes/100 WBC (Bld) 43.7 % Normal [facility] Comment on above: Order Comment: Speci men Type: BLOOD SPECIMEN Ordering Facility: [facility] Address: [address] [place] [address] Performed By: #### 5 7021-8 #### [facility] CLIA [id number] [address] [place] MCH (RBC) [Entitic mass] 30.2 pg Normal 26.0-34.0 [facility] Comment on above: Order Comment: Speci men Type: BLOOD SPECIMEN Ordering Facility: [facility] Address: [address] [address] Performed By: #### 5 7021-8 #### [facility] CLIA [id number] [address] STATES OF [facility] MCHC (RBC) [Mass/Vol] 33.5 g/dL Normal 30.5-36.0 [facility] Comment on above: Order Comment: Speci men Type: BLOOD SPECIMEN Ordering Facility: [facility] Address: [address] [place] [address] Performed By: #### 5 7021-8 #### [facility] CLIA [id number] [address] STATES OF [facility] MCV (RBC) [Entitic vol] 90.2 fL Normal 80.0-100.0 [facility] Comment on above: Order Comment: Speci men Type: BLOOD SPECIMEN Ordering Facility: [facility] Address: [address] [address] Performed By: #### 5 7021-8 #### [facility] CLIA [id number] [address] [place] Monocytes (Bld) [#/Vol] 0.28 10*3/uL Normal <0.87 [facility] Comment on above: Order Comment: Speci men Type: BLOOD SPECIMEN Ordering Facility: [facility] Address: [address] [address] Performed By: #### 5 7021-8 #### [facility] CLIA [id number] [address] Monocytes/100 WBC (Bld) 7.4 % Normal [facility] Comment on above: Order Comment: Speci men Type: BLOOD SPECIMEN Ordering Facility: [facility] Address: [address] [address] Performed By: #### 5 7021-8 #### [facility] CLIA [id number] 1 [place] [address] [place] Neutrophils (Bld) [#/Vol] 1.68 10*3/uL Normal 1.45-7.50 [facility] Comment on above: Order Comment: Speci men Type: BLOOD SPECIMEN Ordering Facility: [facility] Address: [address] [place] [address] Performed By: #### 5 7021-8 #### [facility] CLIA [id number] [address] [place] Neutrophils/100 WBC (Bld) 44.1 % Normal [facility] Comment on above: Order Comment: Speci men Type: BLOOD SPECIMEN Ordering Facility: [facility] Address: [address] [place] [address] Performed By: #### 5 7021-8 #### [facility] CLIA [id number] [address] [place] Nucleated RBC (Bld) [#/Vol] 10*3/uL Normal <0.01 [facility] Comment on above: Order Comment: Speci men Type: BLOOD SPECIMEN Ordering Facility: [facility] Address: [address] [place] [address] Performed By: #### 5 7021-8 #### [facility] CLIA [id number] [address] [place] Nucleated RBC/100 WBC (Bld) [Ratio] 0.0 /100 WBC Normal [facility] Comment on above: Order Comment: Speci men Type: BLOOD SPECIMEN Ordering Facility: [facility] Address: [address] [place] [address] Performed By: #### 5 7021-8 #### [facility] CLIA [id number] [address] [place] Platelet mean volume (Bld) [Entitic vol] 11.1 fL Normal 9.0-12.7 [facility] Comment on above: Order Comment: Speci men Type: BLOOD SPECIMEN Ordering Facility: [facility] Address: [address] [address] Performed By: #### 5 7021-8 #### [facility] CLIA [id number] [address] [place] Platelets (Bld) [#/Vol] 231 10*3/uL Normal 150-400 [facility] Comment on above: Order Comment: Speci men Type: BLOOD SPECIMEN Ordering Facility: [facility] Address: [address] [address] Performed By: #### 5 7021-8 #### [facility] CLIA [id number] [address] [place] RBC (Bld) [#/Vol] 4.27 10*6/uL Normal 3.90-5.20 [facility] Comment on above: Order Comment: Speci men Type: BLOOD SPECIMEN Ordering Facility: [facility] Address: [address] [address] Performed By: #### 5 7021-8 #### [facility] CLIA [id number] [address] WBC (Bld) [#/Vol] 3.80 10*3/uL Normal 3.70-11.00 [facility] Comment on above: Order Comment: Speci men Type: BLOOD SPECIMEN Ordering Facility: [facility] Address: [address] [place] [address] Performed By: #### 5 7021-8 #### [facility] CLIA [id number] [address] [place] ABD/PEL WO IVCONon [...] Tissues: No acute abnormality. Lower thorax: Unremarkable. Slice Cutting Machine Operator Helper (topogram) images: No additional findings. IMPRESSION: Stable findings as detailed above. No acute intra-abdominal or pelvic process seen. Financial Aid Coordinator: JUANCARLOS Transcribe Date/Time: Oct 18 2022 10:14A Dictated by : ADELA FISHER MD This examination was interpreted and the report reviewed and electronically signed by: ADELA FISHER MD on Oct 18 2022 10:21AM EST [id number] Normal [facility] Comprehensive metabolic 2000 panelon 10-18-2022 Albumin [Mass/Vol] 4.3 g/dL Normal 3.9-4.9 [facility] Comment on above: Order Comment: Speci men Type: BLOOD SPECIMEN Ordering Facility: [facility] Address: [address] [place] [phone] Performed By: #### 2 4323-8, 3040-3 #### [facility] CLIA [id number] [address] ALP [Catalytic activity/Vol] 73 U/L Normal 34-123 [facility] Comment on above: Order Comment: Speci men Type: BLOOD SPECIMEN Ordering Facility: [facility] Address: [address] [place] [address] Performed By: #### 2 4323-8, 3040-3 #### [facility] CLIA [id number] [address] OF [facility] ALT With P-5'-P [Catalytic activity/Vol] 24 U/L Normal 7-38 [facility] Comment on above: Order Comment: Speci men Type: BLOOD SPECIMEN Ordering Facility: [facility] Address: [address] [place] [address] Performed By: #### 2 4323-8, 0-3 #### [facility] CLIA [id number] [address] Anion gap [Moles/Vol] 8 mmol/L Low 9-18 [facility] Comment on above: Order Comment: Speci men Type: BLOOD SPECIMEN Ordering Facility: [facility] Address: [address] [place] [address] Performed By: #### 2 4323-8, 0-3 #### [facility] CLIA [id number] [address] AST With P-5'-P [Catalytic activity/Vol] 36 U/L High 13-35 [facility] Comment on above: Order Comment: Speci men Type: BLOOD SPECIMEN Ordering Facility: [facility] Address: [address] [place] [address] Performed By: #### 2 4323-8, 3040-3 #### [facility] CLIA [id number] [address] Bilirubin [Mass/Vol] 0.4 mg/dL Normal 0.2-1.3 [facility] Comment on above: Order Comment: Speci men Type: BLOOD SPECIMEN Ordering Facility: [facility] Address: [address] [place] [address] Performed By: #### 2 4323-8, 0-3 #### [facility] CLIA [id number] [address] [place] Calcium [Mass/Vol] 8.9 mg/dL Normal 8.5-10.2 [facility] Comment on above: Order Comment: Speci men Type: BLOOD SPECIMEN Ordering Facility: [facility] Address: [address] [address] Performed By: #### 2 [address]38, 0-3 #### [facility] CLIA [id number] [address] [place] Chloride [Moles/Vol] 108 mmol/L High 97-105 [facility] Comment on above: Order Comment: Speci men Type: BLOOD SPECIMEN Ordering Facility: [facility] Address: [address] [address] Performed By: #### 2 4328, 3039-3 #### [facility] CLIA [id number] [address] [place] CO2 [Moles/Vol] 26 mmol/L Normal 22-30 [facility] Comment on above: Order Comment: Speci men Type: BLOOD SPECIMEN Ordering Facility: [facility] Address: [address] [place] [address] Performed By: #### 2 43238, 3039-3 #### [facility] CLIA [id number] [address] [place] Creatinine [Mass/Vol] 0.81 mg/dL Normal 0.58-0.96 [facility] Comment on above: Order Comment: Speci men Type: BLOOD SPECIMEN Ordering Facility: [facility] Address: [address] [address] Performed By: #### 2 4323-8, 0-3 #### [facility] CLIA [id number] [address] [place] Creatinine and Glomerular filtration rate.predicted panel (S/P/Bld) 98 mL/min/1.73m??? Normal >=60 [facility] Comment on above: Order Comment: Geraldo marrero Type: BLOOD SPECIMEN Ordering Facility: [facility] Address: [address] [place] [address] Result Comment: Jessica mated Glomerular Filtration Rate [...] Performed By: #### 2 4323-8, 3040-3 #### [facility] CLIA [id number] 1 [place] [address] [place] Glucose [Mass/Vol] 85 mg/dL Normal 74-99 [facility] Comment on above: Order Comment: Geraldo marrero Type: BLOOD SPECIMEN Ordering Facility: [facility] Address: [address] [place] [address] Result Comment: The [place] [employer] (ADA) provides guidance for cutoff [...] Standards of Medical Care in Diabetes 2016, [place] [employer]. Diabetes Care. 2016.39(Suppl 1). Performed By: #### 2 4323-8, 3040-3 #### [employer] [facility] CLIA [id number] 1 [place] [address] [place] Potassium [Moles/Vol] 4.3 mmol/L Normal 3.7-5.1 [facility] Comment on above: Order Comment: Geraldo marrero Type: BLOOD SPECIMEN Ordering Facility: [facility] Address: [address] [address] Performed By: #### 2 4323-8, 3040-3 #### [facility] CLIA [id number] [address] STATES OF [facility] Protein [Mass/Vol] 6.4 g/dL Normal 6.3-8.0 [facility] Comment on above: Order Comment: Speci men Type: BLOOD SPECIMEN Ordering Facility: [facility] Address: [address] [address] Performed By: #### 2 4323-8, 3040-3 #### [facility] CLIA [id number] [address] OF [facility] Sodium [Moles/Vol] 142 mmol/L Normal 136-144 [facility] Comment on above: Order Comment: Speci men Type: BLOOD SPECIMEN Ordering Facility: [facility] Address: [address] [place] [address] Performed By: #### 2 4323-8, 3040-3 #### [facility] CLIA [id number] [address] [place] Urea nitrogen [Mass/Vol] 8 mg/dL Normal 7-21 [facility] Comment on above: Order Comment: Speci men Type: BLOOD SPECIMEN Ordering Facility: [facility] Address: [address] [place] [address] Performed By: #### 2 4323-8, 3040-3 #### [facility] CLIA [id number] [address] [place] ED NOTEon 10-18-2022 ED NOTE HNO ID: [id number] Author: Serafin Curiel RN Service: ? Author Type: Registered Nurse Type: ED Notes Filed: 10/18/2022 10:46 AM Note Text: Provider previously at bedside discussing results/findings. Discharge instructions, follow up recommendations and medications reviewed with patient. Pt advised to return to ED with worsening symptoms. Pt verbalizes understanding. Stable and ambulatory upon d/c Normal [facility] ED NOTE HNO ID: [id number] Author: Alannah Carter RN Service: ? Author Type: Registered Nurse Type: ED Notes Filed: 10/18/2022 7:53 AM Note Text: Bed: 26-ED Expected date: Expected time: Means of arrival: Comments: TRIAGE Normal [facility] ED PROV NOTEon 10-18-2022 ED PROV NOTE HNO ID: [id number] Author: Alverto Barrett MD Service: Emergency Medicine [...] (more content not included)... Normal [facility] Lipase SerPl-cCncon 10-19-19 23 Lipase [Catalytic activity/Vol] 34 U/L Normal 16 [facility] Comment on above: Order Comment: Speci men Type: BLOOD SPECIMEN Ordering Facility: [facility] Address: [address] [address] Performed By: #### 2 4323-8, 3040-3 #### [facility] CLIA [id number] [address] Urinalysis complete panel (U )on 10-18-2022 Bilirubin Ql (U) Negative Normal Negative [place] Comment on above: Order Comment: Speci men Type: URINE SPECIMEN Ordering Facility: [facility] Address: [address] [address] Performed By: #### 2 4356-8 #### [facility] CLIA [id number] [address] [place] Clarity (Unsp spec) Clear Normal Clear [facility] Comment on above: Order Comment: Speci men Type: URINE SPECIMEN Ordering Facility: [facility] Address: [address] [address] Performed By: #### 2 4356-8 #### [facility] CLIA [id number] [address] Color (U) Light Yellow Normal yellow [facility] Comment on above: Order Comment: Speci men Type: URINE SPECIMEN Ordering Facility: [facility] Address: [address] [address] Performed By: #### 2 4356-8 #### [facility] CLIA [id number] [address] Epithelial cells LM.HPF (Urine sed) [#/Area] Few Normal [facility] Comment on above: Order Comment: Speci men Type: URINE SPECIMEN Ordering Facility: [facility] Address: [address] [address] Performed By: #### 2 4356-8 #### [facility] CLIA [id number] [address] [place] Glucose Test strip (U) [Mass/Vol] Negative Normal Trace, Negative [facility] Comment on above: Order Comment: Speci men Type: URINE SPECIMEN Ordering Facility: [facility] Address: [address] [place] [address] Performed By: #### 2 4356-8 #### [facility] CLIA [id number] [address] Hemoglobin Ql (U) Negative Normal Negative, Trace [facility] Comment on above: Order Comment: Speci men Type: URINE SPECIMEN Ordering Facility: [facility] Address: [address] [place] [address] Performed By: #### 2 4356-8 #### [facility] CLIA [id number] [address] Ketones Ql (U) Negative Normal Negative, Trace [facility] Comment on above: Order Comment: Speci men Type: URINE SPECIMEN Ordering Facility: [facility] Address: [address] [address] Performed By: #### 2 4356-8 #### [facility] CLIA [id number] [address] Leukocyte esterase Test strip Ql (U) Negative Normal Negative, 25 [place]/uL [facility] Comment on above: Order Comment: Speci men Type: URINE SPECIMEN Ordering Facility: [facility] Address: [address] [address] Performed By: #### 2 4356-8 #### [facility] CLIA [id number] [address] [place] Nitrite Ql (U) Negative Normal Negative [facility] Comment on above: Order Comment: Speci men Type: URINE SPECIMEN Ordering Facility: [facility] Address: [address] [place] [address] Performed By: #### 2 4356-8 #### [facility] CLIA [id number] [address] [place] pH (U) 7.5 [pH] Normal 5.0-8.0 [facility] Comment on above: Order Comment: Speci men Type: URINE SPECIMEN Ordering Facility: [facility] Address: [address] [place] [address] Performed By: #### 2 4356-8 #### [facility] CLIA [id number] [address] Protein (U) [Mass/Vol] Negative Normal Trace, Negative [facility] Comment on above: Order Comment: Speci men Type: URINE SPECIMEN Ordering Facility: [facility] Address: [address] [place] [address] Performed By: #### 2 4356-8 #### [facility] CLIA [id number] [address] RBC LM.HPF (Urine sed) [#/Area] 0-3 /HPF Normal 0-3 /HPF [facility] Comment on above: Order Comment: Speci men Type: URINE SPECIMEN Ordering Facility: [facility] Address: [address] [place] [address] Performed By: #### 2 4356-8 #### [facility] CLIA [id number] [address] [place] Specific gravity (U) [Rel density] 1.008 Normal 1.005-1.030 [facility] Comment on above: Order Comment: Speci men Type: URINE SPECIMEN Ordering Facility: [facility] Address: [address] [place] [address] Performed By: #### 2 4356-8 #### [facility] CLIA [id number] [address] Urobilinogen Ql (U) Normal Normal Negative [facility] Comment on above: Order Comment: Speci men Type: URINE SPECIMEN Ordering Facility: [facility] Address: [address] [place] [address] Performed By: #### 2 4356-8 #### [facility] CLIA [id number] [address] [place] WBC LM.HPF (Urine sed) [#/Area] 0-5 /HPF Normal 0-5 /HPF [facility] Comment on above: Order Comment: Speci men Type: URINE SPECIMEN Ordering Facility: [facility] Address: [address] [place] [address] Performed By: #### 2 4356-8 #### [facility] CLIA [id number] [address] [place] Urinalysis w/ Microon 2022 Bilirubin, SemiQt,Ur Negative Normal NEG [facility] Comment on above: Performed By: #### U AMIC #### [facility] [address] [place] [address] Boiler Inspector: Baldomero Espinoza MD Blood, Urine Negative Normal NEG [facility] Comment on above: Performed By: #### U AMIC #### [facility] [address] [place] [address] Boiler Inspector: Baldomero Espinoza MD Clarity (U) Clear Normal CLEAR [facility] Comment on above: Performed By: #### U AMIC #### [facility] [address] [place] [address] Boiler Inspector: Baldomero Espinoza MD Color (U) Yellow Normal YEL [facility] Comment on above: Performed By: #### U AMIC #### [facility] [address] [place] [address] Boiler Inspector: Baldomero Espinoza MD Epithelial cells LM Ql (Urine sed) None Normal 0-[address] [facility] Comment on above: Performed By: #### U AMIC #### [facility] [address] [place], [place] [phone] Boiler Inspector: Baldomero Espinoza MD Glucose Ql (U) Negative Normal NEG [facility] Comment on above: Performed By: #### U AMIC #### [facility] [address] [place], [place] [phone] Boiler Inspector: Baldomero Espinoza MD Ketones Ql (U) Negative Normal NEG [facility] Comment on above: Performed By: #### U AMIC #### [facility] [address] [place] [address] [place], [place] [address] Boiler Inspector: Baldomero Espinoza MD Leukocyte esterase Test strip Ql (U) Negative Normal NEG [facility] Comment on above: Performed By: #### U AMIC #### [facility] [address] [place] [address] [place] [address] Boiler Inspector: Baldomero Espinoza MD Nitrite,Ur Negative Normal NEG [facility] Comment on above: Performed By: #### U AMIC #### [facility] [address] [place] [address] [place], [place] [phone] Boiler Inspector: Baldomero Espinoza MD PH,Ur 6.5 Normal 5.0-9.[address] [facility] Comment on above: Performed By: #### U AMIC #### [facility] [address] [place], [place] [phone] Boiler Inspector: Baldomero Espinoza MD Protein Ql (U) Negative Normal NEG [facility] Comment on above: Performed By: #### U AMIC #### [facility] [address] [place], [place] [phone] Boiler Inspector: Baldomero Espinoza MD Spec. [place],Ur 1.020 Normal 1.010-1.020 [facility] Comment on above: Performed By: #### U AMIC #### [facility] [address] [place] [address] Boiler Inspector: Baldomero Espinoza MD Urine RBC's None Normal 0-[address] [facility] Comment on above: Performed By: #### U AMIC #### [facility] [address] [place] [phone] Boiler Inspector: Baldomero Espinoza MD Urine WBC's None Normal 0-[address] [facility] Comment on above: Performed By: #### U AMIC #### [facility] [address] [place] [address] Boiler Inspector: Baldomero Espinoza MD Urobilinogen,Ur Normal Normal 0.0-1.0 [facility] Comment on above: Performed By: #### U AMIC #### [facility] [address] [place], [place] [phone] Boiler Inspector: Baldomero Espinoza MD [employer] 10-08-2022 Forms [id number] 26#1.00CD:127 Normal [facility] Ambulatory Visit Summaryon 0 10-07-2022 Ambulatory Visit Summary Normal [address] [place] [address]- \.br\ Medications\.br\ What How Much When Why [...] Metabolic syndrome\.br\ PCOS- polycystic ovary syndrome\.br\ \.br\ [facility] Family Medicine Office/Clini c Noteon 10-07-2022 Family Medicine Office/Clinic Note Normal [facility] Comment on above: Result Comment: Elec tronically Signed By: Jaquan Paula\.br\Date and Time Signed: 10/07/22 16:37 EDT Operative Reporton Operative Report [id number] 4C#1.00CD:127 Normal [facility] CNOVon 09-18-2022 CNOV Normal [facility] CNPNon 09-04-2022 CNPN Normal [facility] C3 COMPLEMENT Don 06-13-19 Complement C3 [Mass/Vol] 140 mg/dL 86 - 166 mg/dL [facility] C4 COMPLEMENT BLDon 06-13-19 Complement C4 [Mass/Vol] 25 mg/dL 13 - 46 mg/dL [facility] CBC W Auto Differential pane l (Bld)on 06-12-2022 Basophils (Bld) [#/Vol] 0.04 10*3/uL <0.11 k/uL [facility] Basophils/100 WBC (Bld) 0.9 % [facility] Differential cell count method Nom (Bld) Auto [facility] Eosinophils (Bld) [#/Vol] 0.09 10*3/uL <0.46 k/uL [facility] Eosinophils/100 WBC (Bld) 2.0 % [facility] Erythrocyte distribution width (RBC) [Ratio] 12.8 % 11.5 - 15.0 % [facility] Hematocrit (Bld) [Volume fraction] 40.5 % 36.0 - 46.0 % [facility] Hemoglobin (Bld) [Mass/Vol] 13.4 g/dL 11.5 - 15.5 g/dL [facility] Immature granulocytes (Bld) [#/Vol] <0.10 k/uL [facility] Immature granulocytes/100 WBC (Bld) 0.2 % [facility] Lymphocytes (Bld) [#/Vol] 1.73 10*3/uL 1.00 - 4.00 k/uL [facility] Lymphocytes/100 WBC (Bld) 37.9 % [facility] MCH (RBC) [Entitic mass] 30.0 pg 26.0 - 34.0 pg [facility] MCHC (RBC) [Mass/Vol] 33.1 g/dL 30.5 - 36.0 g/dL [facility] MCV (RBC) [Entitic vol] 90.8 fL 80.0 - 100.0 fL [facility] Monocytes (Bld) [#/Vol] 0.23 10*3/uL <0.87 k/uL [facility] Monocytes/100 WBC (Bld) 5.0 % [facility] Neutrophils (Bld) [#/Vol] 2.46 10*3/uL 1.45 - 7.50 k/uL [facility] Neutrophils/100 WBC (Bld) 54.0 % [facility] Nucleated RBC (Bld) [#/Vol] <0.01 k/uL [facility] Nucleated RBC/100 WBC (Bld) [Ratio] 0.0 /100 WBC [facility] Platelet mean volume (Bld) [Entitic vol] 11.3 fL 9.0 - 12.7 fL [facility] Platelets (Bld) [#/Vol] 292 10*3/uL 150 - 400 k/uL [facility] RBC (Bld) [#/Vol] 4.46 10*6/uL 3.90 - 5.20 m/uL [facility] WBC (Bld) [#/Vol] 4.56 10*3/uL 3.70 - 11.00 k/u L [facility] CK CREATINE KINASEon 023 CK [Catalytic activity/Vol] 44 U/L 42 - 196 U/L [facility] Comprehensive metabolic 2000 panelon 06-12-2022 Albumin [Mass/Vol] 4.3 g/dL 3.9 - 4.9 g/dL [facility] ALP [Catalytic activity/Vol] 64 U/L 34 - 123 U/L [facility] ALT [Catalytic activity/Vol] 20 U/L 7 - 38 U/L [facility] Anion gap [Moles/Vol] 10 mmol/L 9 - 18 mmol/L [facility] AST [Catalytic activity/Vol] 33 U/L 13 - 35 U/L [facility] Bilirubin [Mass/Vol] 0.4 mg/dL 0.2 - 1.3 mg/dL [facility] Calcium [Mass/Vol] 9.3 mg/dL 8.5 - 10.2 mg/dL [facility] Chloride [Moles/Vol] 106 mmol/L High 97 - 105 mmol/L [facility] CO2 [Moles/Vol] 23 mmol/L 22 - 30 mmol/L [facility] Creatinine [Mass/Vol] 0.76 mg/dL 0.58 - 0.96 mg/dL [facility] Estimated Glomerular Filtration Rate 106 mL/min/1.73m >=60 mL/min/1.73m [facility] Glucose [Mass/Vol] 79 mg/dL 74 - 99 mg/dL [facility] Potassium [Moles/Vol] 4.0 mmol/L 3.7 - 5.1 mmol/L [facility] Protein [Mass/Vol] 6.9 g/dL 6.3 - 8.0 g/dL [facility] Sodium [Moles/Vol] 139 mmol/L 136 - 144 mmol/L [facility] Urea nitrogen [Mass/Vol] 9 mg/dL 7 - 21 mg/dL [facility] FERRITIN BLDon 06-12-2022 Ferritin [Mass/Vol] 36.6 ng/mL 14.7 - 205.1 ng/ mL [facility] FOLATE SERUMon 06-12-2022 Folate [Mass/Vol] 6.8 ng/mL >4.7 ng/mL [facility] Iron and Iron binding capaci ty panelon 06-12-2022 Iron [Mass/Vol] 100 ug/dL 41 - 186 ug/dL [facility] Iron binding capacity [Mass/Vol] 332 ug/dL 232 - 386 ug/dL [facility] Iron/TIBC [Molar ratio] 30.1 % 15.0 - 57.0 % [facility] MAGNESIUM BLDon 06-12-2022 Magnesium [Mass/Vol] 2.2 mg/dL 1.7 - 2.3 mg/dL [facility] RHEUMATOID FACTOR BLon 06-12 Rheumatoid factor Qn <16 IU/mL [facility] VITAMIN B12 BLOODon 06-13-19 Cobalamin (Vitamin B12) [Mass/Vol] 854 pg/mL 232 - 1,245 pg/mL [facility] CHEMISTRYOrdered By: SYSTEM SYSTEM on 06-10-2022 [...] rate/Area] 100 mL/min/1.73 m2 Normal >=59mL/min/1.73 m2 [facility] Chem S Glucose [Mass/Vol] 83 mg/dL Normal [...] 3.4 E9/L Normal 2.0 - 7.5 E9/L [facility]e[employer] HEMATOLOGYOrdered By: Edilberto Meng on 06-10-2022 Erythrocyte distribution width (RBC) [Ratio] 13.9 % Normal 10.9 - 14.2 % FT [facility] Hematocrit (Bld) [Volume fraction] 40.9 % Normal 34.0 - 46.0 % [facility]e[employer] Hemoglobin (Bld) [Mass/Vol] 13.9 g/dL Normal 12.0 - 16.0 gm/dL FT [facility] MCH (RBC) [Entitic mass] 30.6 pg Normal 27.0 - 34.0 pg FT [facility] MCHC (RBC) [Mass/Vol] 34.0 g/dL Normal 31.4 - 36.0 gm/dL [facility] MCV (RBC) [Entitic vol] 89.9 fL Normal 80.0 - 100.0 fL [facility]eAutoSS Platelet mean volume (Bld) [Entitic vol] 9.1 fL Normal 6.4 - 10.8 fL [facility] Platelets (Bld) [#/Vol] 249.0 E9/L Normal 150.0 - 500.0 E9/L [facility] RBC (Bld) [#/Vol] 4.6 E12/L Normal 4.3 - 5.9 E12/L [facility] HemeAutoSS Sed Rate Automated 8 mm/h Normal 0 - 34 mm/hr [facility]eAutoSS WBC corrected for nucl RBC Auto (Bld) [#/Vol] 5.8 E9/L Normal 4.0 - 11.0 E9/L [facility] AMYLASEon 06-09-2022 Amylase [Catalytic activity/Vol] 41 U/L Normal 25-115 [facility] Comment on above: Performed By: #### G RUBIN, LIPID #### [facility] [address] [place] [id number] Stephan Tavares CBC AUTO DIFFon 06-09-2022 BASO # 0.0 103/ul Normal 0.0-0.1 [facility] Comment on above: Performed By: #### G RUBIN, LIPID #### [facility] [address] [address] [address] Stephan Tavares Basophils/100 WBC (Bld) 0.7 % Normal 0.2-2.0 [facility] Comment on above: Performed By: #### G RUBIN, LIPID #### [facility] [address] [place] [address] Dr. Stephan Tavares EO # 0.1 103/ul Normal 0.0-0.7 [facility] Comment on above: Performed By: #### G RUBIN, LIPID #### [facility] [address] [place] [address] Dr. Stephan Tavares Eosinophils/100 WBC (Bld) 1.5 % Normal 0.9-7.0 [facility] Comment on above: Performed By: #### G RUBIN, LIPID #### [facility] [address] [place] [address] Dr. Stephan Tavares Erythrocyte distribution width (RBC) [Ratio] 13.1 % Normal 11.0-15.0 [facility] Comment on above: Performed By: #### G RUBIN, LIPID #### [facility] [address] [place] [address] Dr. Stephan Tavares Hematocrit (Bld) [Volume fraction] 43.2 % Normal 36.0-48.0 [facility] Comment on above: Performed By: #### G RUBIN, LIPID #### [facility] [address] [place] [address] Dr. Stephan Tavares Hemoglobin (Bld) [Mass/Vol] 14.6 g/dL Normal 12.0-16.0 [facility] Comment on above: Performed By: #### G RUBIN, LIPID #### [facility] [address] [place] [address] Dr. Stephan Tavares IG # 0.01 10e3/ul Normal 0.00-0.03 [facility] Comment on above: Performed By: #### G RUBIN, LIPID #### [facility] [address] [place] [address] Dr. Stephan Tavares IG % 0.2 % Normal 0.0-0.5 [facility] Comment on above: Performed By: #### G RUBIN, LIPID #### [facility] [address] [address] [address] Stephan Tavares LYMPH # 2.1 103/ul Normal 1.2-3.8 [facility] Comment on above: Performed By: #### G RUBIN, LIPID #### [facility] [address] [address] [address] Stephan Tavares Lymphocytes/100 WBC (Bld) 39.1 % Normal 20.5-60.0 [facility] Comment on above: Performed By: #### G RUBIN, LIPID #### [facility] [address] [address] [address] Stephan Tavares MANUAL DIFF REQ NO Normal [facility] Comment on above: Performed By: #### G RUBIN, LIPID #### [facility] [address] [address] [address] Stephan Tavares MCH (RBC) [Entitic mass] 30.2 pg Normal 26.7-34.0 [facility] Comment on above: Performed By: #### G RUBIN, LIPID #### [facility] [address] [address] [address] Stephan Tavares MCHC (RBC) [Mass/Vol] 33.8 g/dL Normal 29.9-35.2 [facility] Comment on above: Performed By: #### G RUBIN, LIPID #### [facility] [address] [address] [address] Stephan Tavares MCV (RBC) [Entitic vol] 89.3 fL Normal 81.0-99.0 [facility] Comment on above: Performed By: #### G RUBIN, LIPID #### [facility] [address] [address] [address] Stephan Tavares MONO # 0.3 103/ul Normal 0.3-0.8 [facility] Comment on above: Performed By: #### G RUBIN, LIPID #### [facility] [address] [address] [address] Stephan Tavares Monocytes/100 WBC (Bld) 5.2 % Normal 1.7-12.0 [facility] Comment on above: Performed By: #### G RUBIN, LIPID #### [facility] [address] [address] [address] Stephan Tavares NEUT # 2.9 103/ul Normal 1.4-6.5 [facility] Comment on above: Performed By: #### G RUBIN, LIPID #### [facility] [address] [address] [address] Stephan Tavares Neutrophils/100 WBC (Bld) 53.3 % Normal 43.0-75.0 [facility] Comment on above: Performed By: #### G RUBIN, LIPID #### [facility] [address] [address] [address] Stephan Tavares Platelet mean volume (Bld) [Entitic vol] 10.9 fL Normal 9.5-13.5 [facility] Comment on above: Performed By: #### G RUBIN, LIPID #### [facility] [address] [place] [address] Dr. Stephan Tavares PLT 271 103/ul Normal 150-450 [facility] Comment on above: Performed By: #### G RUBIN, LIPID #### [facility] [address] [place] [address] Dr. Stephan Tavares RBC 4.84 106/ul Normal 4.20-5.40 [facility] Comment on above: Performed By: #### G RUBIN, LIPID #### [facility] [address] [place] [address] Dr. Stephan Tavares WBC 5.4 103/ul Normal 4.0-11.0 [facility] Comment on above: Performed By: #### G RUBIN, LIPID #### [facility] [address] [place] [address] ABD/PELVIS WO CONon [...] by: ALVERTO PHAM Date: 2022-06-09 16:14 Normal [facility] ER URINE PROFILEon 3 Bilirubin Ql (U) Negative Normal NEGATIVE [facility] Comment on above: Performed By: #### G RUBIN, LIPID #### [facility] [address] [place] [address] Dr. Stephan Tavares Clarity (U) CLEAR Normal CLEAR [facility] Comment on above: Performed By: #### G RUBIN, LIPID #### [facility] [address] [address] [address] Stephan Tavares Color (U) LT. YELLOW Normal YELLOW [facility] Comment on above: Performed By: #### G RUBIN, LIPID #### [facility] [address] [address] [address] Stephan KUMAR A micrscopic examination will be performed if indicated. Normal [facility] Comment on above: Performed By: #### G RUBIN, LIPID #### [facility] [address] [address] [address] Stephan Tavares Glucose Ql (U) Negative Normal NEGATIVE [facility] Comment on above: Performed By: #### G RUBIN, LIPID #### [facility] [address] [address] [address] Stephan Tavares Hemoglobin Ql (U) Negative Normal NEGATIVE [facility] Comment on above: Performed By: #### G RUBIN, LIPID #### [facility] [address] [address] [address] Stephan Tavares Ketones Ql (U) Negative Normal NEGATIVE [facility] Comment on above: Performed By: #### G RUBIN, LIPID #### [facility] [address] [address] [address] Stephan Tavares LEUKOCYTES Negative Normal NEGATIVE [facility] Comment on above: Performed By: #### G RUBIN, LIPID #### [facility] [address] [place] [address] Dr. Stephan Tavares Nitrite Ql (U) Negative Normal NEGATIVE [facility] Comment on above: Performed By: #### G RUBIN, LIPID #### [facility] [address] [address] [address] Stephan Tavares pH (U) 7.5 [pH] Normal 5-9 [facility] Comment on above: Performed By: #### G RUBIN, LIPID #### [facility] [address] [address] [address] Stephan Tavares SPEC GRAVITY 1.015 Normal 1.005-<=1.025 [facility] Comment on above: Performed By: #### G RUBIN, LIPID #### [facility] [address] [address] [address] Stephan Tavares UA PROTEIN Negative Normal NEGATIVE/ TRACE [facility] Comment on above: Performed By: #### G RUBIN, LIPID #### [facility] [address] [address] [address] Stephan Tavaers UR MICRO IND NOT INDICATED Normal [facility] Comment on above: Performed By: #### G RUBIN, LIPID #### [facility] [address] [place] [address] Dr. Stephan Tavares Urobilinogen Qn (U) 0.2 {Munir'U}/dL Normal 0.2 - 1. 0 [facility] Comment on above: Performed By: #### G RUBIN, LIPID #### [facility] [address] [place] [address] Dr. Stephan Tavares LIPASEon 06-09-2022 Lipase [Catalytic activity/Vol] 120.0 U/L Normal 73.0-393.0 [facility] Comment on above: Performed By: #### G RUBIN, LIPID #### [facility] [address] [place] [address] Dr. Stephan Tavares PROF 14(COMP METB)on 023 Albumin [Mass/Vol] 4.4 g/dL Normal 3.4-5.0 [facility] Comment on above: Performed By: #### G RUBIN, LIPID #### [facility] [address] [place] [address] Dr. Stephan Tavares Albumin/Globulin [Mass ratio] 1.1 {ratio} Normal [facility] Comment on above: Performed By: #### G RUBIN, LIPID #### [facility] [address] [place] [address] Dr. Stephan Tavares ALP [Catalytic activity/Vol] 74 U/L Normal 46-116 [facility] Comment on above: Performed By: #### G RUBIN, LIPID #### [facility] [address] [place] [address] Dr. Stephan Tavares ALT [Catalytic activity/Vol] 40 U/L Normal 14-59 [facility] Comment on above: Performed By: #### G RUBIN, LIPID #### [facility] [address] [place] [address] Dr. Stephan Tavares Anion gap [Moles/Vol] 16.5 mmol/L Normal [facility] Comment on above: Performed By: #### G RUBIN, LIPID #### [facility] [address] [place] [address] Dr. Stephan Tavares AST [Catalytic activity/Vol] 45 U/L Critically high 15-37 [facility] Comment on above: Performed By: #### G RUBIN, LIPID #### [facility] [address] [place] [address] Dr. Stephan Tavares Bilirubin [Mass/Vol] 0.5 mg/dL Normal 0.2-1.0 [facility] Comment on above: Performed By: #### G RUBIN, LIPID #### [facility] [address] [place] [address] Dr. Stephan Tavares Calcium [Mass/Vol] 9.3 mg/dL Normal 8.5-10.1 [facility] Comment on above: Performed By: #### G RUBIN, LIPID #### [facility] [address] [address] [address] Stephan Tavares Chloride [Moles/Vol] 103 mmol/L Normal 98-107 [facility] Comment on above: Performed By: #### G RUBIN, LIPID #### [facility] [address] [place] [address] Dr. Stephan Tavares CO2 [Moles/Vol] 24.9 mmol/L Normal 21.0-32.0 [facility] Comment on above: Performed By: #### G RUBIN, LIPID #### [facility] [address] [place] [address] Dr. Stephan Tavares Creatinine [Mass/Vol] 0.88 mg/dL Normal 0.55-1.02 [facility] Comment on above: Performed By: #### G RUBIN, LIPID #### [facility] [address] [place] [address] Dr. Stephan Tavares EGFR-AF MONTENEGRIN >60 Normal >=60 [facility] Comment on above: Performed By: #### G RUBIN, LIPID #### [facility] [address] [place] [address] Dr. Stephan Tavares EGFR-NON AF MONTENEGRIN >60 Normal >=60 [facility] Comment on above: Performed By: #### G RUBIN, LIPID #### [facility] [address] [place] [address] Dr. Stephan Tavares Globulin (S) [Mass/Vol] 3.9 g/dL Normal [facility] Comment on above: Performed By: #### G RUBIN, LIPID #### [facility] [address] [place] [address] Dr. Stephan Tavares Glucose [Mass/Vol] 79 mg/dL Normal 74-106 [facility] Comment on above: Performed By: #### G RUBIN, LIPID #### [facility] [address] [address] [address] Stephan Tavares Potassium [Moles/Vol] 3.4 mmol/L Critically low 3.5-5.1 [facility] Comment on above: Performed By: #### G RUBIN, LIPID #### [facility] [address] [address] [address] Stephan Tavares Protein [Mass/Vol] 8.3 g/dL Critically high 6.4-8.2 [facility] Comment on above: Performed By: #### G RUBIN, LIPID #### [facility] [address] [address] [address] Stephan Tavares Sodium [Moles/Vol] 141 mmol/L Normal 136-145 [facility] Comment on above: Performed By: #### G RUBIN, LIPID #### [facility] [address] [address] [address] Stephan Tavares Urea nitrogen [Mass/Vol] 10.0 mg/dL Normal 7.0-18.0 [facility] Comment on above: Performed By: #### G RUBIN, LIPID #### [facility] [address] [place] [address] Dr. Stephan Tavares Urea nitrogen/Creatinine [Mass ratio] 11.4 mg/mg Normal [facility] Comment on above: Performed By: #### G RUBIN, LIPID #### [facility] [address] [address] [address] Stephan Tavares US PELVIS TRANSVAGon 023 [...] ALVERTO PHAM Date: 2022-06-09 17:04 Normal [facility] HLA B 27on 05-28-2022 HLA-B27 Negative Normal [facility] Comment on above: Result Comment: HLA- B*27 Negative B27 allele interpretation for all loci based on IMGT/HLA database version 3.44 This test was developed and its performance characteristics determined by [employer]. It has not been cleared or approved by the Food and Drug Administration. [facility] CLIA ID Number [id number] . This test was performed using PCR (Polymerase Chain Reaction)/SSOP (Sequence Specific Oligonucleotide Probes) technique. SBT (Sequence Based Typing) and/or SSP (Sequence Specific Primers) may be used as supplemental methods when necessary. Please contact [facility] Customer Service at if you have any questions. . Director of [facility] Laboratory Dr Tino Sampson, PhD Performed By: #### B MP, MG #### [facility] [address] [place] [address] Dr. Stephan Tavares LYME DISEASE, WESTERN BLOTon 05-27-2022 IgG P18 Ab. Absent [facility] Comment on above: Performed By: #### B MP, MG #### [facility] [address] [place] [address] Dr. Stephan Tavares IgG P23 Ab. Absent [facility] Comment on above: Performed By: #### B MP, MG #### [facility] [address] [place] [address] Dr. Stephan Tavares IgG P28 Ab. Absent [facility] Comment on above: Performed By: #### B MP, MG #### [facility] [address] [place] [address] Dr. Stephan Tavares IgG P30 Ab. Absent [facility] Comment on above: Performed By: #### B MP, MG #### [facility] [address] [place] [address] Dr. Stephan Tavares IgG P39 Ab. Absent [facility] Comment on above: Performed By: #### B MP, MG #### [facility] [address] [place] [address] Dr. Stephan Tavares IgG P41 Ab. Present Abnormal [facility] Comment on above: Performed By: #### B MP, MG #### [facility] [address] [place] [address] Dr. Stephan Tavares IgG P45 Ab. Absent Normal [facility] Comment on above: Performed By: #### B MP, MG #### [facility] [address] [place] [address] Dr. Stephan Tavares IgG P58 Ab. Absent [facility] Comment on above: Performed By: #### B MP, MG #### [facility] [address] [place] [address] Dr. Stephan Tavares IgG P66 Ab. Absent Normal [facility] Comment on above: Performed By: #### B MP, MG #### [facility] [address] [place] [address] Dr. Stephan Tavares IgG P93 Ab. Absent [facility] Comment on above: Performed By: #### B MP, MG #### [facility] [address] [place] [address] Dr. Stephan Tavares IgM P23 Ab. Present Abnormal [facility] Comment on above: Performed By: #### B MP, MG #### [facility] [address] [place] [address] Dr. Stephan Tavares IgM P39 Ab. Absent [facility] Comment on above: Performed By: #### B MP, MG #### [facility] [address] [place] [address] Dr. Stephan Tavares IgM P41 Ab. Present Abnormal [facility] Comment on above: Performed By: #### B MP, MG #### [facility] [address] [place] [address] Dr. Stephan Tavares Lyme IgG WB Interp. Negative Normal [facility] Comment on above: Result Comment: Posi tive: 5 of the following Borrelia-specific bands: 18,23,28,30,39,41,45,58, 66, and 93. Negative: No bands or banding patterns which do not meet positive criteria. Performed By: #### B TOMMIE, MG #### [facility] [address] [address] [address] Stephan Tavares Lyme IgM WB Interp. Positive Abnormal [facility] Comment on above: Result Comment: Note [...] are those recommended by CDC/ASTPHLD. p23=Osp C, g56=cpcpodgpt . Note: Sera from individuals with the following may cross react in the Lyme Line Blot assays: other spirochetal diseases (periodontal disease, leptospirosis, relapsing fever, yaws, and pinta); connective autoimmune (Rheumatoid Arthritis and Systemic Lupus Erythematosus and also individuals with Antinuclear Antibody); other infections (Hughes Spotted Fever; Prabhakar-Rangel Virus, and Cytomegalovirus). . . Please Note: Lyme immunoblot alone is not recommended for the diagnosis of Lyme disease. Current guidelines recommend the use of a two-tiered approach to Lyme serology testing to improve the sensitivity and specificity of testing. [email or web address] offers test code 278267 Lyme Disease Serology with Reflex to aid in the diagnosis of Lyme Disease. Performed By: #### B TOMMIE, MG #### [facility] [address] [place], [place] [address] Dr. Stephan Tavares MISAEL EIA W/REFLEX 9 BIOMARKER Son 05-25-2022 MISAEL Direct Negative Normal Negative [facility] Comment on above: Performed By: #### A NARF9 #### [facility] [address] [place], [place] [address] Dr. Stephan Tavares SLE PROFILE Aon 05-25-2022 Anti-DNA (DS) Ab Qn 2 IU/mL Normal 0-9 [facility] Comment on above: Result Comment: Nega tive <5 Equivocal 5 - 9 Positive >9 Performed By: #### S RONALDO #### [facility] [address] [place] [address] Dr. Stephan Tavares Antichromatin Antibodies <0.2 Normal 0.0-0.9 [facility] Comment on above: Performed By: #### S RONALDO #### [facility] [address] [place] [address] Dr. Stephan Tavares RA Latex Turbid. <10.0 Normal <14.0 [facility] Comment on above: Performed By: #### S RONALDO #### [facility] [address] [place] [address] Dr. Stephan Tavares [employer] Antibodies 0.3 AI Normal 0.0-0.9 [facility] Comment on above: Performed By: #### S RONALDO #### [facility] [address] [place] [address] Dr. Stephan Tavares Sjogrrodolfo'nancy Anti-SS-A <0.2 Normal 0.0-0.9 [facility] Comment on above: Performed By: #### S RONALDO #### [facility] [address] [place] [address] Dr. Stephan Tavares Sjogren's Anti-SS-B <0.2 Normal 0.0-0.[address] [facility] Comment on above: Performed By: #### S RONALDO #### [facility] [address] [place] [address] Dr. Stephan Tavares Mc Antibodies <0.2 Normal 0.0-0.9 [facility] Comment on above: Performed By: #### S RONALDO #### [facility] [address] [place] [address] Dr. Stephan Tavares CBC AUTO DIFFon 05-22-2022 BASO # 0.0 103/ul Normal 0.0-0.1 [facility] Comment on above: Performed By: #### C BC #### [facility] [address] [place] [address] Dr. Stephan Tavares Basophils/100 WBC (Bld) 1.0 % Normal 0.2-2.0 [facility] Comment on above: Performed By: #### C BC #### [facility] [address] [place] [address] Dr. Stephan Tavares EO # 0.1 103/ul Normal 0.0-0.7 [facility] Comment on above: Performed By: #### C BC #### [facility] [address] [place] [address] Dr. Stephan Tavares Eosinophils/100 WBC (Bld) 1.3 % Normal 0.9-7.0 [facility] Comment on above: Performed By: #### C BC #### [facility] [address] [place] [address] Dr. Stephan Tavares Erythrocyte distribution width (RBC) [Ratio] 13.3 % Normal 11.0-15.0 [facility] Comment on above: Performed By: #### C BC #### [facility] [address] [place] [address] Dr. Stephan Tavares Hematocrit (Bld) [Volume fraction] 36.7 % Normal 36.0-48.0 [facility] Comment on above: Performed By: #### C BC #### [facility] [address] [place] [address] Dr. Stephan Tavares Hemoglobin (Bld) [Mass/Vol] 12.6 g/dL Normal 12.0-16.0 [facility] Comment on above: Performed By: #### C BC #### [facility] [address] [place] [address] Dr. Stephan Tavares IG # 0.00 10e3/ul Normal 0.00-0.03 [facility] Comment on above: Performed By: #### C BC #### [facility] [address] [place] [address] Dr. Stephan Tavares IG % 0.0 % Normal 0.0-0.5 [facility] Comment on above: Performed By: #### C BC #### [facility] [address] [place] [address] Dr. Stephan Tavares LYMPH # 1.2 103/ul Normal 1.2-3.8 [facility] Comment on above: Performed By: #### C BC #### [facility] [address] [place] [address] Dr. Stephan Tavares Lymphocytes/100 WBC (Bld) 30.9 % Normal 20.5-60.0 [facility] Comment on above: Performed By: #### C BC #### [facility] [address] [place] [address] Dr. Stephan Tavares MANUAL DIFF REQ NO Normal [facility] Comment on above: Performed By: #### C BC #### [facility] [address] [place] [address] Dr. Stephan Tavares MCH (RBC) [Entitic mass] 30.6 pg Normal 26.7-34.0 [facility] Comment on above: Performed By: #### C BC #### [facility] [address] [place] [address] Dr. Stephan Tavares MCHC (RBC) [Mass/Vol] 34.3 g/dL Normal 29.9-35.2 [facility] Comment on above: Performed By: #### C BC #### [facility] [address] [place] [address] Dr. Stephan Tavares MCV (RBC) [Entitic vol] 89.1 fL Normal 81.0-99.0 [facility] Comment on above: Performed By: #### C BC #### [facility] [address] [place] [address] Dr. Stephan Tavares MONO # 0.2 103/ul Critically low 0.3-0.8 [facility] Comment on above: Performed By: #### C BC #### [facility] [address] [place] [address] Dr. Stephan Tavares Monocytes/100 WBC (Bld) 5.9 % Normal 1.7-12.0 [facility] Comment on above: Performed By: #### C BC #### [facility] [address] [place] [address] Dr. Stephan Tavares NEUT # 2.4 103/ul Normal 1.4-6.5 [facility] Comment on above: Performed By: #### C BC #### [facility] [address] [place] [address] Dr. Stephan Tavares Neutrophils/100 WBC (Bld) 60.9 % Normal 43.0-75.0 [facility] Comment on above: Performed By: #### C BC #### [facility] [address] [address] [address] Stephan Tavares Platelet mean volume (Bld) [Entitic vol] 10.9 fL Normal 9.5-13.5 [facility] Comment on above: Performed By: #### C BC #### [facility] [address] [address] [address] Stephan Tavares PLT 250 103/ul Normal 150-450 [facility] Comment on above: Performed By: #### C BC #### [facility] [address] [address] [address] Stephan Tavares RBC 4.12 106/ul Critically low 4.20-5.40 [facility] Comment on above: Performed By: #### C BC #### [facility] [address] [place] [address] Dr. Stephan Tavares WBC 3.9 103/ul Critically low 4.0-11.0 [facility] Comment on above: Performed By: #### C BC #### [facility] [address] [place] [address] Dr. Stephan Tavares CRPon 05-22-2022 CRP [Mass/Vol] mg/L Normal <=1.0 [facility] Comment on above: Performed By: #### G RUBIN, LIPID #### [facility] [address] [place] [address] Dr. Stephan Tavares SED RATE WESTERGRENon 2022 SED RATE 4 mm/hr Normal <=20 [facility] Comment on above: Performed By: #### S EDR #### [facility] [address] [place] [address] Dr. Stephan Tavares URIC ACID SERUMon 05-22-2022 Urate [Mass/Vol] 4.5 mg/dL Normal 2.6-6.0 [facility] Comment on above: Performed By: #### G RUBIN, LIPID #### [facility] [address] [place] [address] Dr. Stephan Tavares EGD - THERAPEUTIC, EUS, OR T UBE INTERVENTIONSon 03-06-2022 [facility] US PELVIS AND TRANSVAGon US PELVIS [...] BALDOMERO MARCELO Date: 2022-03-03 16:24 Normal [facility] CBC AUTO DIFFon 02-17-2022 BASO # 0.0 103/ul Normal 0.0-0.1 [facility] Comment on above: Performed By: #### G RUBIN, LIPID #### [facility] [address] [place] [address] Dr. Stephan Tavares Basophils/100 WBC (Bld) 0.8 % Normal 0.2-2.0 [facility] Comment on above: Performed By: #### G RUBIN, LIPID #### [facility] [address] [place] [address] Dr. Stephan Tavares EO # 0.1 103/ul Normal 0.0-0.7 [facility] Comment on above: Performed By: #### G RUBIN, LIPID #### [facility] [address] [place] [address] Dr. Stephan Tavares Eosinophils/100 WBC (Bld) 2.0 % Normal 0.9-7.0 [facility] Comment on above: Performed By: #### G RUBIN, LIPID #### [facility] [address] [place] [address] Dr. Stephan Tavares Erythrocyte distribution width (RBC) [Ratio] 13.2 % Normal 11.0-15.0 [facility] Comment on above: Performed By: #### G RUBIN, LIPID #### [facility] [address] [place] [address] Dr. Stephan Tavares Hematocrit (Bld) [Volume fraction] 36.2 % Normal 36.0-48.0 [facility] Comment on above: Performed By: #### G RUBIN, LIPID #### [facility] [address] [place] [address] Dr. Stephan Tavares Hemoglobin (Bld) [Mass/Vol] 12.6 g/dL Normal 12.0-16.0 [facility] Comment on above: Performed By: #### G RUBIN, LIPID #### [facility] [address] [address] [address] Stephan Tavares IG # 0.00 10e3/ul Normal 0.00-0.03 [facility] Comment on above: Performed By: #### G RUBIN, LIPID #### [facility] [address] [place] [address] Dr. Stephan Tavares IG % 0.0 % Normal 0.0-0.5 [facility] Comment on above: Performed By: #### G RUBIN, LIPID #### [facility] [address] [place] [address] Dr. Stephan Tavares LYMPH # 2.3 103/ul Normal 1.2-3.8 [facility] Comment on above: Performed By: #### G RUBIN, LIPID #### [facility] [address] [place] [address] Dr. Stephan Tavares Lymphocytes/100 WBC (Bld) 46.3 % Normal 20.5-60.0 [facility] Comment on above: Performed By: #### G RUBIN, LIPID #### [facility] [address] [place] [address] Dr. Stephan Tavares MANUAL DIFF REQ NO Normal [facility] Comment on above: Performed By: #### G RUBIN, LIPID #### [facility] [address] [place] [address] Dr. Stephan Tavares MCH (RBC) [Entitic mass] 29.2 pg Normal 26.7-34.0 [facility] Comment on above: Performed By: #### G RUBIN, LIPID #### [facility] [address] [place] [address] Dr. Stephan Tavares MCHC (RBC) [Mass/Vol] 34.8 g/dL Normal 29.9-35.2 [facility] Comment on above: Performed By: #### G RUBIN, LIPID #### [facility] [address] [place] [address] Dr. Stephan Tavares MCV (RBC) [Entitic vol] 84.0 fL Normal 81.0-99.0 [facility] Comment on above: Performed By: #### G RUBIN, LIPID #### [facility] [address] [place] [address] Dr. Stephan Tavares MONO # 0.4 103/ul Normal 0.3-0.8 [facility] Comment on above: Performed By: #### G RUBIN, LIPID #### [facility] [address] [place] [address] Dr. Stephan Tavares Monocytes/100 WBC (Bld) 8.7 % Normal 1.7-12.0 [facility] Comment on above: Performed By: #### G RUBIN, LIPID #### [facility] [address] [place] [address] Dr. Stephan Tavares NEUT # 2.1 103/ul Normal 1.4-6.5 [facility] Comment on above: Performed By: #### G RUBIN, LIPID #### [facility] [address] [place] [address] Dr. Stephan Tavares Neutrophils/100 WBC (Bld) 42.2 % Critically low 43.0-75.0 [facility] Comment on above: Performed By: #### G RUBIN, LIPID #### [facility] [address] [place] [address] Dr. Stephan Tavares Platelet mean volume (Bld) [Entitic vol] 11.1 fL Normal 9.5-13.5 [facility] Comment on above: Performed By: #### G RUBIN, LIPID #### [facility] [address] [place] [address] Dr. Stephan Tavares PLT 228 103/ul Normal 150-450 [facility] Comment on above: Performed By: #### G RUBIN, LIPID #### [facility] [address] [place] [address] Dr. Stephan Tavares RBC 4.31 106/ul Normal 4.20-5.40 [facility] Comment on above: Performed By: #### G RUBIN, LIPID #### [facility] [address] [place] [address] Dr. Stephan Tavares WBC 5.1 103/ul Normal 4.0-11.0 [facility] Comment on above: Performed By: #### G RUBIN, LIPID #### [facility] [address] [place] [address] Dr. Stephan Tavares MAGNESIUMon 02-17-2022 Magnesium [Mass/Vol] 1.8 mg/dL Normal 1.8-2.4 [facility] Comment on above: Performed By: #### B MP, MG #### [facility] [address] [place] [address] Dr. Stephan Tavares PROF CHEM 8 (BAS METB)on Anion gap [Moles/Vol] 16.1 mmol/L Normal [facility] Comment on above: Performed By: #### B MP, MG #### [facility] [address] [place] [address] Dr. Stephan Tavares Calcium [Mass/Vol] 8.7 mg/dL Normal 8.5-10.1 [facility] Comment on above: Performed By: #### B MP, MG #### [facility] [address] [place] [address] Dr. Stephan Tavares Chloride [Moles/Vol] 104 mmol/L Normal 98-107 [facility] Comment on above: Performed By: #### B MP, MG #### [facility] [address] [place] [address] Dr. Stephan Tavares CO2 [Moles/Vol] 22.0 mmol/L Normal 21.0-32.0 [facility] Comment on above: Performed By: #### B MP, MG #### [facility] [address] [place] [address] Dr. Stephan Tavares Creatinine [Mass/Vol] 0.74 mg/dL Normal 0.55-1.02 [facility] Comment on above: Performed By: #### B MP, MG #### [facility] [address] [address] [address] Stephan Tavares EGFR-AF MONTENEGRIN >60 Normal >=60 [facility] Comment on above: Performed By: #### B MP, MG #### [facility] [address] [address] [address] Stephan Tavares EGFR-NON AF MONTENEGRIN >60 Normal >=60 [facility] Comment on above: Performed By: #### B MP, MG #### [facility] [address] [address] [address] Stephan Tavares Glucose [Mass/Vol] 88 mg/dL Normal 74-106 [facility] Comment on above: Performed By: #### B MP, MG #### [facility] [address] [place] [address] Dr. Stephan Tavares Potassium [Moles/Vol] 4.1 mmol/L Normal 3.5-5.1 [facility] Comment on above: Result Comment: spec imen hemolysed. result could be spurious. suggest repeat. Performed By: #### B MP, MG #### [facility] [address] [address] [address] Stephan Tavares Sodium [Moles/Vol] 138 mmol/L Normal 136-145 [facility] Comment on above: Performed By: #### B MP, MG #### [facility] [address] [place] [address] Dr. Stephan Tavares Urea nitrogen [Mass/Vol] 12.0 mg/dL Normal 7.0-18.0 [facility] Comment on above: Performed By: #### B MP, MG #### [facility] [address] [address] [address] Stephan Tavares Urea nitrogen/Creatinine [Mass ratio] 16.2 mg/mg Normal [facility] Comment on above: Performed By: #### B MP, MG #### [facility] [address] [address] [address] Stephan Tavares Basic metabolic 2000 panelon 01-28-2022 Anion gap [Moles/Vol] 10 mmol/L 9 - 18 mmol/L [facility] Calcium [Mass/Vol] 9.3 mg/dL 8.5 - 10.2 mg/dL [facility] Chloride [Moles/Vol] 105 mmol/L 97 - 105 mmol/L [facility] CO2 [Moles/Vol] 22 mmol/L 22 - 30 mmol/L [facility] Creatinine [Mass/Vol] 0.68 mg/dL 0.58 - 0.96 mg/dL [facility] Estimated Glomerular Filtration Rate 119 mL/min/1.73m >=60 mL/min/1.73m [facility] Glucose [Mass/Vol] 77 mg/dL 74 - 99 mg/dL [facility] Potassium [Moles/Vol] 4.3 mmol/L 3.7 - 5.1 mmol/L [facility] Sodium [Moles/Vol] 137 mmol/L 136 - 144 mmol/L [facility] Urea nitrogen [Mass/Vol] 9 mg/dL 7 - 21 mg/dL [facility] CBC panel Auto (Bld)on 01-28 Erythrocyte distribution width (RBC) [Ratio] 13.3 % 11.5 - 15.0 % [facility] Hematocrit (Bld) [Volume fraction] 42.9 % 36.0 - 46.0 % [facility] Hemoglobin (Bld) [Mass/Vol] 14.6 g/dL 11.5 - 15.5 g/dL [facility] MCH (RBC) [Entitic mass] 29.8 pg 26.0 - 34.0 pg [facility] MCHC (RBC) [Mass/Vol] 34.0 g/dL 30.5 - 36.0 g/dL [facility] MCV (RBC) [Entitic vol] 87.6 fL 80.0 - 100.0 fL [facility] Nucleated RBC (Bld) [#/Vol] <0.01 k/uL [facility] Platelet mean volume (Bld) [Entitic vol] 11.4 fL 9.0 - 12.7 fL [facility] Platelets (Bld) [#/Vol] 247 10*3/uL 150 - 400 k/uL [facility] RBC (Bld) [#/Vol] 4.90 10*6/uL 3.90 - 5.20 m/uL [facility] WBC (Bld) [#/Vol] 4.05 10*3/uL 3.70 - 11.00 k/u L [facility] EKGon 01-28-2022 Atrial Rate 61 BPM [facility] Calculated P [place] 76 degrees [facility] Calculated R [place] 73 degrees [facility] Calculated T [place] 57 degrees [facility] P-R Interval 144 ms [facility] QRS Duration 86 ms [facility] QT Interval 424 ms [facility] QTC Calculation (Bazett) 426 ms [facility] Ventricular Rate 61 BPM [facility] TYPE AND SCREEN,30 DAYon ABO O [facility] HIstorical Ab Scr Status Negative [facility] Rh Nom (Bld) Positive [facility] EGD - THERAPEUTIC, EUS, OR T UBE INTERVENTIONSon 12-25-2021 [facility] METANEPHRINES PLASMA FREEon 11-01-2021 Metanephrine, Pl <10.0 Normal 0.0-88.0 [facility] Comment on above: Performed By: #### G RUBIN, LIPID #### [facility] [address] [place] [address] Dr. Stephan Tavares Normetanephrine, Pl 19.4 pg/mL Normal 0.0-210.1 [facility] Comment on above: Performed By: #### G RUBIN, LIPID #### [facility] [address] [place] [address] Dr. Stephan Tavares CORTISOLon 10-28-2021 Cortisol 4.6 ug/dL Normal [facility] Comment on above: Result Comment: Wesley isol AM 6.2 - 19.4 Cortisol PM 2.3 - 11.9 Performed By: #### C ORTISO #### [facility] [address] [address] [address] Stephan Tavares CBC AUTO DIFFon 10-27-2021 BASO # 0.0 103/ul Normal 0.0-0.1 [facility] Comment on above: Performed By: #### G RUBIN, LIPID #### [facility] [address] [place] [address] Dr. Stephan Tavares Basophils/100 WBC (Bld) 0.5 % Normal 0.2-2.0 [facility] Comment on above: Performed By: #### G RUBIN, LIPID #### [facility] [address] [place] [address] Dr. Stephan Tavares EO # 0.0 103/ul Normal 0.0-0.7 [facility] Comment on above: Performed By: #### G RUBIN, LIPID #### [facility] [address] [place] [address] Dr. Stephan Tavares Eosinophils/100 WBC (Bld) 0.5 % Critically low 0.9-7.0 [facility] Comment on above: Performed By: #### G RUBIN, LIPID #### [facility] [address] [place] [address] Dr. Stephan Tavares Erythrocyte distribution width (RBC) [Ratio] 12.8 % Normal 11.0-15.0 [facility] Comment on above: Performed By: #### G RUBIN, LIPID #### [facility] [address] [place] [address] Dr. Stephan Tavares Hematocrit (Bld) [Volume fraction] 37.5 % Normal 36.0-48.0 [facility] Comment on above: Performed By: #### G RUBIN, LIPID #### [facility] [address] [place] [address] Dr. Stephan Tavares Hemoglobin (Bld) [Mass/Vol] 12.9 g/dL Normal 12.0-16.0 [facility] Comment on above: Performed By: #### G RUBIN, LIPID #### [facility] [address] [place] [address] Dr. Stephan Tavares IG # 0.01 10e3/ul Normal 0.00-0.03 [facility] Comment on above: Performed By: #### G RUBIN, LIPID #### [facility] [address] [place] [address] Dr. Stephan Tavares IG % 0.2 % Normal 0.0-0.5 [facility] Comment on above: Performed By: #### G RUBIN, LIPID #### [facility] [address] [place] [address] Dr. Stephan Tavares LYMPH # 1.9 103/ul Normal 1.2-3.8 [facility] Comment on above: Performed By: #### G RUBIN, LIPID #### [facility] [address] [place] [address] Dr. Stephan Tavares Lymphocytes/100 WBC (Bld) 34.6 % Normal 20.5-60.0 [facility] Comment on above: Performed By: #### G RUBIN, LIPID #### [facility] [address] [place] [address] Dr. Stephan Tavares MANUAL DIFF REQ NO Normal [facility] Comment on above: Performed By: #### G RUBIN, LIPID #### [facility] [address] [place] [address] Dr. Stephan Tavares MCH (RBC) [Entitic mass] 30.3 pg Normal 26.7-34.0 [facility] Comment on above: Performed By: #### G RUBIN, LIPID #### [facility] [address] [place] [address] Dr. Stephan Tavares MCHC (RBC) [Mass/Vol] 34.4 g/dL Normal 29.9-35.2 [facility] Comment on above: Performed By: #### G RUBIN, LIPID #### [facility] [address] [place] [address] Dr. Stephan Tavares MCV (RBC) [Entitic vol] 88.0 fL Normal 81.0-99.0 [facility] Comment on above: Performed By: #### G RUBIN, LIPID #### [facility] [address] [place] [address] Dr. Stephan Tavares MONO # 0.4 103/ul Normal 0.3-0.8 [facility] Comment on above: Performed By: #### G RUBIN, LIPID #### [facility] [address] [place] [address] Dr. Stephan Tavares Monocytes/100 WBC (Bld) 6.6 % Normal 1.7-12.0 [facility] Comment on above: Performed By: #### G RUBIN, LIPID #### [facility] [address] [place] [address] Dr. Stephan Tavares NEUT # 3.2 103/ul Normal 1.4-6.5 [facility] Comment on above: Performed By: #### G RUBIN, LIPID #### [facility] [address] [address] [address] Stephan Tavares Neutrophils/100 WBC (Bld) 57.6 % Normal 43.0-75.0 [facility] Comment on above: Performed By: #### G RUBIN, LIPID #### [facility] [address] [address] [address] Stephan Tavares Platelet mean volume (Bld) [Entitic vol] 10.6 fL Normal 9.5-13.5 [facility] Comment on above: Performed By: #### G RUBIN, LIPID #### [facility] [address] [address] [address] Stephan Tavares PLT 249 103/ul Normal 150-450 [facility] Comment on above: Performed By: #### G RUBIN, LIPID #### [facility] [address] [address] [address] Stephan Tavares RBC 4.26 106/ul Normal 4.20-5.40 [facility] Comment on above: Performed By: #### G RUBIN, LIPID #### [facility] [address] [address] [address] Stephan Tavares WBC 5.6 103/ul Normal 4.0-11.0 [facility] Comment on above: Performed By: #### G RUBIN, LIPID #### [facility] [address] [address] [address] Stephan Tavares FREE T3on 10-27-2021 FREE T3 3.25 pg/mlL Normal 2.18-3.98 [facility] Comment on above: Performed By: #### G RUBIN, LIPID #### [facility] [address] [address] [address] Stephan Tavares FREE T4on 10-27-2021 Free T4 [Mass/Vol] 1.45 ng/dL Normal 0.76-1.46 [facility] Comment on above: Performed By: #### G RUBIN, LIPID #### [facility] [address] [address] [address] Stephan Tavares PROF CHEM 8 (BAS METB)on Anion gap [Moles/Vol] 13.1 mmol/L Normal [facility] Comment on above: Performed By: #### T JENI FT3, BMP #### [facility] [address] [address] [address] Stephan Tavares Calcium [Mass/Vol] 8.7 mg/dL Normal 8.5-10.1 [facility] Comment on above: Performed By: #### T JENI, FT3, BMP #### [facility] [address] [place] [address] Dr. Stephan Tavares Chloride [Moles/Vol] 104 mmol/L Normal 98-107 [facility] Comment on above: Performed By: #### T JENI FT3, BMP #### [facility] [address] [place] [address] Dr. Stephan Tavares CO2 [Moles/Vol] 25.3 mmol/L Normal 21.0-32.0 [facility] Comment on above: Performed By: #### T JENI, FT3, BMP #### [facility] [address] [place] [address] Dr. Stephan Tavares Creatinine [Mass/Vol] 0.69 mg/dL Normal 0.55-1.02 [facility] Comment on above: Performed By: #### T JENI, FT3, BMP #### [facility] [address] [place] [address] Dr. Stephan Tavares EGFR-AF MONTENEGRIN >60 Normal >=60 [facility] Comment on above: Performed By: #### T JENI, FT3, BMP #### [facility] [address] [place] [address] Dr. Stephan Tavares EGFR-NON AF MONTENEGRIN >60 Normal >=60 [facility] Comment on above: Performed By: #### T JENI, FT3, BMP #### [facility] [address] [place] [address] Dr. Stephan Tavares Glucose [Mass/Vol] 87 mg/dL Normal 74-106 [facility] Comment on above: Performed By: #### T JENI, FT3, BMP #### [facility] [address] [address] [address] Stephan Tavares Potassium [Moles/Vol] 3.4 mmol/L Critically low 3.5-5.1 [facility] Comment on above: Performed By: #### T SH, FT3, BMP #### [facility] [address] [address] [address] Stephan Tavares Sodium [Moles/Vol] 139 mmol/L Normal 136-145 [facility] Comment on above: Performed By: #### T SH, FT3, BMP #### [facility] [address] [address] [address] Stephan Tavares Urea nitrogen [Mass/Vol] 9.0 mg/dL Normal 7.0-18.0 [facility] Comment on above: Performed By: #### T SH, FT3, BMP #### [facility] [address] [place] [address] Dr. Stephan Tavares Urea nitrogen/Creatinine [Mass ratio] 13.0 mg/mg Normal [facility] Comment on above: Performed By: #### T SH, FT3, BMP #### [facility] [address] [place] [address] Dr. Stephan Tavares TSHon 10-27-2021 TSH Qn m[IU]/L Critically low 0.358-3.740 [facility] Comment on above: Performed By: #### G RUBIN, LIPID #### [facility] [address] [place] [address] SINUSES WO CONon [...] by: ALVERTO PHAM Date: 2021-10-06 06:19 Normal [facility] Dental Nerve Blockon 022 Pablo Atwood DO 08/30/2021 4:20 AM Dental Nerve Block Date/Time: 08/30/2021 4:19 AM Performed by: Pablo Atwood DO Authorized by: Pablo Atwood DO Consent: Consent obtained: Verbal Consent given by: Patient Risks, benefits, and alternatives were discussed: yes [place] protocol: Patient identity confirmed: Verbally with patient Indications: Indications: dental pain Location: Block type: Posterior superior alveolar Laterality: Left Procedure details: Syringe type: Controlled syringe Needle gauge: 27 G Anesthetic injected: Bupivacaine 0.5% WITH epi Post-procedure details: Outcome: Anesthesia achieved Procedure completion: Tolerated well, no immediate complications [facility] [employer] Work Phone: [facility] [employer] Phone: GLUCOSE BLOODon 08-21-2021 Glucose [Mass/Vol] 79 mg/dL Normal 74-106 [facility] Comment on above: Performed By: #### G RUBIN, LIPID #### [facility] [address] [place] [address] Dr. Stephan Tavares LIPID PROFILEon 08-21-2021 CHOL-HDL RATIO NORM SEE BELOW Normal [facility] Comment on above: Result Comment: 3.3 - 4.4 LOW RISK 4.4 - 7.1 AVERAGE RISK 7.1 - 11.0 MODERATE RISK >11.0 HIGH RISK Performed By: #### G RUBIN, LIPID #### [facility] [address] [address] [address] Stephan Tavares Cholesterol [Mass/Vol] 163 mg/dL Normal <=200 [facility] Comment on above: Performed By: #### G RUBIN, LIPID #### [facility] [address] [address] [address] Stephan Tavares Cholesterol in HDL [Mass/Vol] 71 mg/dL Critically high 40-60 [facility] Comment on above: Performed By: #### G RUBIN, LIPID #### [facility] [address] [address] [address] Stephan Tavares Cholesterol in LDL [Mass/Vol] 67.8 mg/dL Normal [facility] Comment on above: Performed By: #### G RUBIN, LIPID #### [facility] [address] [address] [address] Stephan Tavares Cholesterol.total/C holesterol in HDL [Mass ratio] 2.3 {ratio} Normal [facility] Comment on above: Performed By: #### G RUBIN, LIPID #### [facility] [address] [address] [address] Stephan Tavares HDL NORMAL > or = 60 mg/dl - LOW CARDIOVASCULAR RISK <40 mg/dl - HIGH CARDIOVASCULAR RISK Normal [facility] Comment on above: Performed By: #### G RUBIN, LIPID #### [facility] [address] [address] [address] Stephan Tavares LDL CALC NORMAL SEE BELOW Normal [facility] Comment on above: Result Comment: <100 mg/dl OPTIMAL 100 - 129 mg/dl NEAR OR ABOVE OPTIMAL 130 - 159 mg/dl BORDERLINE HIGH 160 - 189 mg/dl HIGH >190 mg/dl VERY HIGH Performed By: #### G RUBIN, LIPID #### [facility] [address] [address] [address] Stephan Tavares Triglyceride [Mass/Vol] 121 mg/dL Normal <=150 [facility] Comment on above: Performed By: #### G RUBIN, LIPID #### [facility] [address] [address] [address] Stephan Tavares VLDL CALC 24.2 mg/dL Normal [facility] Comment on above: Performed By: #### G RUBIN, LIPID #### [facility] [address] [address] [address] Stephan Tavares US SINGLE QUAD RT [...] by: ALVERTO PHAM Date: 2021-08-21 17:24 Normal [facility] XR SINUSES 3 VIEWS OR GREATE [...] ALVERTO PHAM Date: 2021-08-20 13:05 Normal [facility] Glucose - FINGER STICKon Glucose [Mass/Vol] 84 mg/dL [facility] Other VAGINITIS/VAGINOSIS DNA PROB Ryder 08-01-2021 Alea species Positive Abnormal Negative [facility] Comment on above: Performed By: #### G RUBIN, LIPID #### [facility] [id number] Stephan Tavares Gardnerella vaginalis Negative Normal Negative [facility] Comment on above: Performed By: #### G RUBIN, LIPID #### [facility] [address] [place], [place] [address] Dr. Stephan Tavares Trichomonas vaginalis Negative Normal Negative [facility] Comment on above: Performed By: #### G RUBIN, LIPID #### [facility] [address] [place], [place] [address] Dr. Stephan Tavares APTTon 07-27-2021 aPTT Coag (Bld) [Time] 30.9 s [facility] Comment on above: IV Heparin Therapy Range: 62.0-94.0 CBC with Auto Differentialon 07-27-2021 Absolute Eos # 0.06 [place] [facility] Absolute Immature Granulocyte <0.03 [facility] Absolute Lymph # 1.49 [facility] Absolute Orange # 0.27 [facility] Basophils (Bld) [#/Vol] 0.04 10*3/uL [facility] Basophils/100 WBC (Bld) 1 % 0 - 2 % [facility] Eosinophils/100 WBC (Bld) 1 % 1 - 4 % [facility] Hematocrit (Bld) [Volume fraction] 38.8 % 36.3 - 47.1 % [facility] Hemoglobin (Bld) [Mass/Vol] 12.7 g/dL 11.9 - 15.1 g/dL [facility] Immature granulocytes/100 WBC (Bld) 0 % 0 [facility] Interpretation and review of laboratory results Abnormal [facility] Lymphocytes/100 WBC (Bld) 36 % 24 - 43 % [facility] MCH (RBC) [Entitic mass] 28.9 pg 25.2 - 33.5 pg [facility] MCHC (RBC) [Mass/Vol] 32.7 g/dL 28.4 - 34.8 g/dL [facility] MCV (RBC) [Entitic vol] 88.4 fL 82.6 - 102.9 fL [facility] Monocytes/100 WBC (Bld) 6 % 3 - 12 % [facility] NRBC Automated 0.0 0.0 per 100 WBC [facility] Platelet distribution width (Bld) [Ratio] 14.5 % High 11.8 - 14.4 % [facility] Platelet mean volume (Bld) [Entitic vol] 10.8 fL 8.1 - 13.5 fL [facility] Platelets (Bld) [#/Vol] 251 10*3/uL [facility] RBC (Bld) [#/Vol] 4.39 10*6/uL 3.95 - 5.11 m/uL [facility] Segmented neutrophils/100 WBC (Bld) 56 % 36 - 65 % [facility] Segs Absolute 2.33 [facility] WBC (Bld) [#/Vol] 4.2 10*3/uL [facility] SE COURS [facility] CT ABDOMEN PELVIS W IV CONTR AST [...] IMPRESSION: No acute abdominal or pelvic abnormality. [employer] Phone: Radiology Study observation (narrative) [employer] Phone: CT ABDOMEN PELVIS W IV CONTR AST Additional Contrast? NoneOrdered By: Devon Moura on 07-27-2021 [employer] Phone: Comprehensive Metabolic Pane l w/ Reflex to MGon 07-27-2021 Albumin [Mass/Vol] 4.7 g/dL 3.5 - 5.2 g/dL [facility] Albumin/Globulin [Mass ratio] 1.8 {ratio} [facility] ALP (Bld) [Catalytic activity/Vol] 62 U/L 35 - 104 U/L [facility] ALT [Catalytic activity/Vol] 14 U/L 5 - 33 U/L [facility] Anion gap [Moles/Vol] 11 mmol/L 9 - 17 mmol/L [facility] AST [Catalytic activity/Vol] 18 U/L <32 [facility] Bilirubin [Mass/Vol] 0.52 mg/dL 0.3 - 1.2 mg/dL [facility] Calcium [Mass/Vol] 9.5 mg/dL 8.6 - 10.4 mg/dL [facility] Chloride [Moles/Vol] 101 mmol/L 98 - 107 mmol/L [facility] CO2 [Moles/Vol] 25 mmol/L 20 - 31 mmol/L [facility] Creatinine [Mass/Vol] 0.76 mg/dL 0.50 - 0.90 mg/dL [facility] Free PSA/Total PSA [Mass fraction] 7.3 g/dL 6.4 - 8.3 g/dL [facility] GFR >60 >60 mL/min [facility] GFR Non- >60 >60 mL/min [facility] Glucose [Mass/Vol] 86 mg/dL 70 - 99 mg/dL [facility] Interpretation and review of laboratory results Abnormal [facility] Potassium [Moles/Vol] 4.0 mmol/L 3.7 - 5.3 mmol/L [facility] Sodium [Moles/Vol] 137 mmol/L 135 - 144 mmol/L [facility] Urea nitrogen (BldV) [Mass/Vol] 16 mg/dL 6 - 20 mg/dL [facility] Urea nitrogen/Creatinine (Bld) [Mass ratio] 21 High [facility] Laboratory - Chemistry and C hemistry - challengeon 07-27-2021 GFR/1.73 sq M.predicted MDRD (S/P/Bld) [Vol rate/Area] [facility] Comment on above: Average GFR for 30-3 9 years old: 107 mL/min/1.73sq m Chronic Kidney Disease: <60 mL/min/1.73sq m Kidney failure: <15 mL/min/1.73sq m eGFR calculated using average adult body mass. Additional eGFR calculator available at: http://www.51intern.com/multiple_crcl_2012.htm Stage 1: Some kidney damage normal GFR Stage 2: Mild kidney damage GFR 60-89 Stage 3: Moderate kidney damage GFR 30-59 Stage 4: Severe kidney damage GFR 15-29 Stage 5: Severe kidney damage GFR <15 ESRD - chronic treatment by dialysis or transplant Lactic Acidon 07-27-2021 Lactate [Moles/Vol] 1 mmol/L 0.5 - 2.2 mmol/L [facility] [employer] [facility] [employer] Lipaseon 07-27-2021 Lipase [Catalytic activity/Vol] 49 U/L 13 - 60 U/L [facility] Medical System Microscopic Urinalysison - Kid[facility] Epithelial Cells UA [address] TO [address] [facility] [employer] RBC, UA 0 TO 2 [facility] [employer] WBC, UA 0 TO 2 [facility] [employer] No Panel Informationon 07-27 [facility] Medical System Protime-INRon 07-27-2021 INR Coag (Bld) [Relative time] 1.1 {INR} [facility] [employer] Comment on above: Non-therapeutic Range: INR = 0.9-1.2 Therapeutic Range: Moderate Anticoagulant Intensity: INR = 2.0-3.0 High Anticoagulant Intensity: INR = 2.5-3.5 PT Coag (PPP) [Time] 14.2 s [facility] Medical System Urinalysis with Reflex to Cu ltureon 07-27-2021 Bilirubin Urine Negative NEGATIVE [facility] Medical System Color, UA Yellow Yellow [facility] [employer] Glucose, Ur Negative NEGATIVE [facility] [employer] Ketones Ql (U) Negative NEGATIVE [facility] Leukocyte esterase Test strip Ql (U) Negative NEGATIVE [facility] Medical System Nitrite, Urine Negative NEGATIVE [facility] pH, UA 7.5 [facility] Protein, UA Negative NEGATIVE [facility] Specific [place], UA 1.010 [facility] Turbidity UA Clear Clear [facility] Urine Hgb Negative NEGATIVE [facility] Urobilinogen, Urine Normal Normal [facility]IE[facility] XR CHEST PORTABLEon 07-28-19 No acute process. [facility] EXAMINATION: ONE XRAY VIEW OF THE [...] The osseous structures are without acute process. [facility] Goldie Grande MD - 07/27/2021 EXAMINATION: [...] without acute process. IMPRESSION: No acute process. [employer] Phone: Radiology Study observation (narrative) [employer] Work Phone: XR CHEST PORTABLEOrdered By: Goldie Grande on 07-27-2021 [facility] Work Phone: XR HIP GENERAL 3V PELV/AP/LA T RIGHTon 06-18-2021 [facility] XR chest 2V*on 03-31-2021 XR chest 2V* [facility] [employer] Other XR chest 2V* [facility] [employer] Other XR chest 2V* [address] [place] [address] [employer] Other XR chest 2V* [place] [address] [place] [employer] Other XR chest 2V* XRay Report [facility] Other XR chest 2V* Signed [facility] Other XR chest 2V* Patient: Abbey Garcia MR#: [id number] [facility] Other XR chest 2V* : 1990 Acct:[id number] [facility] Other XR chest 2V* Age/Sex: 30 / F ADM Date: 03/31/21 [facility] Other XR chest 2V* Loc: XDC Room: Type: [facility] Other XR chest 2V* [facility] Other XR chest 2V* Ordering Provider: [facility]E [facility] Other XR chest 2V* Date of Service: 03/31/21 [facility] Other XR chest 2V* XR/XR chest 2V*: SOB (shortness of breath) [facility] Other XR chest 2V* Copies to: SHANNA JUNE [facility] Other XR chest 2V* PA AND LATERAL CHEST: [facility] Other XR chest 2V* CLINICAL HISTORY: Wheezing and shortness of breath [facility] Other XR chest 2V* COMPARISON: 03/05/2020 [facility] Other XR chest 2V* There is no focal parenchymal consolidation, effusion or pneumothorax. The cardiac, hilar and [facility] Other XR chest 2V* mediastinal silhouettes are within normal limits. There is no vascular congestion. The [facility] Other XR chest 2V* visualized bony thorax is intact. [facility] Other XR chest 2V* XR/XR chest 2V* [facility] Other XR chest 2V* IMPRESSION: [facility] Other XR chest 2V* NO ACUTE CARDIOPULMONARY ABNORMALITY. [facility] Other XR chest 2V* Impression dictated by: Maricruz Hutchinson M.D.03/31/2021 11:32 AM [facility] Other XR chest 2V* Dictation Location: [facility] Other XR chest 2V* Transcribed By: SULEMA 03/31/21 113 [facility] Other XR chest 2V* Dictated By: Maricruz Hutchinson MD 03/31/21 Critical access hospital [facility] Other XR chest 2V* Signed By: [facility] Other XR chest 2V* 03/31/21 [facility] [employer] Other Urinalysis - AUTOMATEDon Appearance (U) clear [employer] Other Bilirubin Ql (U) Negative [employer] Other Color (U) yellow [facility] Other Glucose Ql (U) Negative [employer] Other Hemoglobin Ql (U) Negative [employer] Other Ketones Ql (U) Negative [employer] Other Leukocyte esterase Test strip Ql (U) Negative [facility] Other Nitrite Ql (U) Negative [employer] Other pH (U) 7.0 [pH] [facility] Other Protein Ql (U) Negative [employer] Other Specific gravity (U) [Rel density] 1.015 [facility] Other Urobilinogen (U) [Mass/Vol] 0.2 mg/dL [facility] Other XR FINGER RIGHT (MIN 2 VIEWS )Ordered By: Vicky Olmedo on 12-14-2020 No acute osseous abnormality. [employer] Phone: EXAMINATION: THREE XRAY VIEWS OF THE RIGHT FINGERS 12/14/2020 3:26 pm COMPARISON: None. HISTORY: ORDERING SYSTEM PROVIDED HISTORY: shut right thumb in car door TECHNOLOGIST PROVIDED HISTORY: shut right thumb in car door FINDINGS: There is no evidence of acute fracture. There is normal alignment. No acute joint abnormality. No focal osseous lesion. No focal soft tissue abnormality. [employer] Phone: Yusuf, Mhpn Incoming Radiant Results From [employer] - 12/14/2020 3:33 PM EDT EXAMINATION: THREE [...] tissue abnormality. IMPRESSION: No acute osseous abnormality. [employer] Phone: [employer] Phone: CBC, EDIF, PLATELETOrdered B y: Juanito Laird on 07-02-2020 ABSOLUTE BASOPHIL COUNT 0.0 10*3/uL 0.0 - 0.2 10*3/uL [employer] [facility] Basophils/100 WBC (Bld) 0.6 % 0.0 - 2.0 % [facility] Differential cell count method Nom (Bld) AUTO DIFF % [facility] Eosinophils (Bld) [#/Vol] 0.10 10*3/uL 0.0 - 0.7 10*3/uL [facility] Eosinophils/100 WBC (Bld) 1.3 % 0.0 - 11.0 % [facility] Erythrocyte distribution width (RBC) [Ratio] 14.1 % 11.5 - 14.5 % [facility] Hematocrit (Bld) [Volume fraction] 36.2 % 36.0 - 48.0 % [facility] Hemoglobin (Bld) [Mass/Vol] 12.1 g/dL [facility] Lymphocytes (Bld) [#/Vol] 1.70 10*3/uL 1.2 - 3.4 10*3/uL [facility] Lymphocytes/100 WBC (Bld) 23.4 % 20.0 - 55.0 % [facility] MCH (RBC) [Entitic mass] 28.1 pg 26.0 - 35.0 PG [facility] MCHC (RBC) [Mass/Vol] 33.4 g/dL [facility] MCV (RBC) [Entitic vol] 84.1 fL [facility] Monocytes (Bld) [#/Vol] 0.5 10*3/uL 0.0 - 0.7 10*3/uL [facility] Monocytes/100 WBC (Bld) 6.4 % 0.0 - 10.0 % [facility] Neutrophils (Bld) [#/Vol] 5.0 10*3/uL 1.4 - 6.5 10*3/uL [facility] Neutrophils/100 WBC (Bld) 68.3 % 37.0 - 75.0 % [facility] Platelet mean volume (Bld) [Entitic vol] 8.9 fL [facility] Platelets (Bld) [#/Vol] 295 10*3/uL 130.0 - 400.0 10*3/uL [facility] RBC (Bld) [#/Vol] 4.31 10*6/uL 4.0 - 5.4 10*6/u L [facility] WBC (Bld) [#/Vol] 7.3 10*3/uL 3.6 - 11.0 10*3/u L [facility] COMPREHENSIVE METABOLIC PANE LOrdered By: Juanito Laird on 07-02-2020 Albumin [Mass/Vol] 4.1 G/dl 3.5 - 5.0 G/dl [facility] Albumin/Globulin [Mass ratio] 1.3 {ratio} [facility] ALP [Catalytic activity/Vol] 52 U/L [facility] ALT [Catalytic activity/Vol] 16 U/L [facility] AST [Catalytic activity/Vol] 29 U/L [facility] Bilirubin [Mass/Vol] 0.5 mg/dL [facility] Calcium [Mass/Vol] 9.2 mg/dL [facility] Chloride [Moles/Vol] 102 mmol/L [facility] CO2 [Moles/Vol] 22 mmol/L [facility] Creatinine [Mass/Vol] 0.59 mg/dL [facility] GFR COMMENT Average GFR for 30-39 years old = 109. [facility] Comment on above: Chronic Kidney disea se, GFR = <60. Kidney failure, GFR = <15. The GFR estimate is not adjusted for extreme body surface area or acute process, nor has it been validated for women or ethnic groups other than and . GFR/1.73 sq M.predicted among blacks MDRD (S/P/Bld) [Vol rate/Area] mL/min/{1.73_m2} ml/min/1.73sq.m [facility] GFR/1.73 sq M.predicted among non-blacks MDRD (S/P/Bld) [Vol rate/Area] mL/min/{1.73_m2} ml/min/1.73sq.m [facility] Glucose post fast [Mass/Vol] 84 mg/dL [facility] Comment on above: NORMAL <100 mg/dL PREDIABETES 101-126 mg/dL DIABETES 126 mg/dL or higher Interpretation and review of laboratory results Abnormal [facility] Potassium [Moles/Vol] 4.1 mmol/L [facility] Protein [Mass/Vol] 7.3 g/dL [facility] Sodium [Moles/Vol] 134 mmol/L Low [facility] Urea nitrogen [Mass/Vol] 15 mg/dL [employer] [facility] ABDOMEN/PELVIS WITHOUT CO NTRASTOrdered By: Juanito Laird on 07-02-2020 IMPRESSION: CT abdomen and CT pelvis studies demonstrate findings compatible with hepatic cysts as described, similar to prior study. Finding is compatible with complex right adnexal cyst as noted. Correlate for mild gastroenteritis. [employer] EXAMINATION: CT ABDOMEN/PELVIS WITHOUT CONTRAST HISTORY: Abdominal [...] bowel content. Bony structures are grossly intact. [employer] User, Interfaces - 07/02/2020 2:22 PM EDT [...] cyst as noted. Correlate for mild gastroenteritis. [facility] HCG ( test) Ql (U)O rdered By: Vaughn Ceja on 07-02-2020 [facility] HCG QUALITATIVE, URINEOrdere d By: Vaughn Ceja on 07-02-2020 HCG ( test) Ql (U) Negative NEGATIVE [facility] LACTATE, BLOODOrdered By: Catherine Laird on 07-02-2020 Lactate [Moles/Vol] 1.0 mmol/L [facility] LIPASEOrdered By: Juanito rosen on 07-02-2020 Lipase [Catalytic activity/Vol] 32 U/L 23 - 300 U/L [facility] No Panel InformationOrdered By: Juanito Laird on 07-02-2020 [facility] PROTIME-INROrdered By: Gautam Laird on 07-02-2020 INR Coag (PPP) [Relative time] 0.95 {INR} [facility] Comment on above: 2.0-3.0 THERAPEUTIC RANGE 2.5-3.5 MECHANICAL VALVE RANGE PT Coag (PPP) [Time] 12.9 s [facility] TYPE AND SCREEN - POSSIBLE T RANSFUSIONOrdered By: Juanito Laird on 07-02-2020 ABO and Rh group Nom (Bld ) Positive [facility] ARM BAND NUMBER [id number] [facility] Blood group antibody screen Ql Negative [facility] EXPIRATION DATE 07/05/2020,2359 [facility] URINALYSIS, MACROOrdered By: Vaughn Ceja on 07-02-2020 Bilirubin Ql (U) Negative NEGATIVE [facility] Clarity (U) SLIGHTLY CLOUDY Abnormal CLEAR [facility] Color (U) PINK Abnormal YELLOW [facility] Glucose Test strip (U) [Mass/Vol] Negative NEGATIVE mg/dl [facility] Hemoglobin Ql (U) LARGE Abnormal NEGATIVE [facility] Interpretation and review of laboratory results Abnormal [facility] Ketones (U) [Mass/Vol] Negative NEGATIVE mg/dl [facility] Leukocyte esterase Test strip Ql (U) TRACE Abnormal NEGATIVE [facility] Nitrite Ql (U) Negative NEGATIVE [facility] pH (U) 5.5 [pH] [facility] Protein Ql (U) 100 mg/dl Abnormal NEGATIVE [facility] Specific gravity (U) [Rel density] <1.005 Low [facility] Urobilinogen (U) [Mass/Vol] 0.2 mg/dL [facility] URINE MICROSCOPICOrdered By: Vaughn Ceja on 07-02-2020 Bacteria LM.HPF (Urine sed) [#/Area] TRACE Abnormal NEGATIVE [facility] Casts LM.LPF (Urine sed) [#/Area] NONE NONE /LPF [facility] Crystals LM Nom (Urine sed) NONE NONE [facility] Epithelial cells LM Ql (Urine sed) 10 TO 20 /HPF [facility] Interpretation and review of laboratory results Abnormal [facility] Mucus Ql (Urine sed) Negative NEGATIVE [facility] RBC LM.HPF (Urine sed) [#/Area] TOO NUMEROUS TO COUNT Abnormal NEGATIVE /HPF [facility] Urine sediment comments LM John (Urine sed) POSSIBLY CONTAMINATED SPECIMEN, CULTURE MUST BE ORDERED SEPARATELY IF DEEMED NECESSARY. [facility] WBC LM.HPF (Urine sed) [#/Area] 1 TO 5 NEGATIVE /HPF [facility] US PELVIC WITH TRANSVAGINAL WITH DOPPLEROrdered By: Juanito Laird on 07-02-2020 IMPRESSION: 5.5 cm septated right ovarian cyst No evidence of right ovarian torsion Nonvisualization of the left ovary 4.1 cm myometrial masses, leiomyoma suspected [facility] EXAM: US PELVIC WITH TRANSVAGINAL WITH [...] to patient body habitus and bowel gas [facility] User, Interfaces - 07/02/2020 4:10 PM [...] ovary 4.1 cm myometrial masses, leiomyoma suspected [facility] CBC, EDIF, PLATELETon 2019 ABSOLUTE BASOPHIL COUNT 0.0 10*3/uL 0 - 0.2 10*3/uL [facility] Basophils/100 WBC (Bld) 0.6 % 0 - 2 % [facility] Differential cell count method Nom (Bld) AUTO DIFF % [facility] Eosinophils (Bld) [#/Vol] 0.10 10*3/uL 0 - 0.7 10*3/uL [facility] Eosinophils/100 WBC (Bld) 2.4 % 0 - 11 % [facility] Erythrocyte distribution width (RBC) [Ratio] 15.2 % High 11.5 - 14.5 % [facility] Hematocrit (Bld) [Volume fraction] 39.4 % 36 - 48 % [facility] Hemoglobin (Bld) [Mass/Vol] 12.7 g/dL [facility] Interpretation and review of laboratory results Abnormal [facility] Lymphocytes (Bld) [#/Vol] 1.50 10*3/uL 1.2 - 3.4 10*3/uL [facility] Lymphocytes/100 WBC (Bld) 25.8 % 20 - 55 % [facility] MCH (RBC) [Entitic mass] 28.3 pg 26 - 35 PG [facility] MCHC (RBC) [Mass/Vol] 32.3 g/dL [facility] MCV (RBC) [Entitic vol] 87.6 fL [facility] Monocytes (Bld) [#/Vol] 0.3 10*3/uL 0 - 0.7 10*3/uL [facility] Monocytes/100 WBC (Bld) 5.6 % 0 - 10 % [facility] Neutrophils (Bld) [#/Vol] 3.7 10*3/uL 1.4 - 6.5 10*3/uL [facility] Neutrophils/100 WBC (Bld) 65.6 % 37 - 75 % [facility] Platelet mean volume (Bld) [Entitic vol] 9.2 fL [facility] Platelets (Bld) [#/Vol] 277 10*3/uL 130 - 400 10*3/uL [facility] RBC (Bld) [#/Vol] 4.50 10*6/uL 4 - 5.4 10*6/uL [facility] WBC (Bld) [#/Vol] 5.7 10*3/uL 3.6 - 11 10*3/uL [facility] CHEM 7 (LYTES,BUN,CREA,GLUC) on 01-30-2020 Chloride [Moles/Vol] 106 mmol/L [facility] CO2 [Moles/Vol] 20 mmol/L Low [facility] Creatinine [Mass/Vol] 0.67 mg/dL [facility] GFR/1.73 sq M predicted among blacks MDRD (S/P/Bld) [Vol rate/Area] mL/min/{1.73_m2} ml/min/1.73sq.m [facility] GFR/1.73 sq M predicted among non-blacks MDRD (S/P/Bld) [Vol rate/Area] mL/min/{1.73_m2} ml/min/1.73sq.m [facility] GFR/1.73 sq M predicted among non-blacks MDRD (S/P/Bld) [Vol rate/Area] Average GFR for 30-39 years old = 109. [facility] Comment on above: Chronic Kidney disea se, GFR = <60. Kidney failure, GFR = <15. The GFR estimate is not adjusted for extreme body surface area or acute process, nor has it been validated for women or ethnic groups other than and . Glucose post fast [Mass/Vol] 78 mg/dL [facility] Comment on above: NORMAL <100 mg/dL PREDIABETES 101-126 mg/dL DIABETES 126 mg/dL or higher Interpretation and review of laboratory results Abnormal [facility] Potassium [Moles/Vol] 3.8 mmol/L [facility] Sodium [Moles/Vol] 138 mmol/L [facility] Urea nitrogen [Mass/Vol] 8 mg/dL [facility] CT ABDOMEN/PELVIS WITH CONTR Daljit 01-30-2020 [...] osseous lesions. No compression fracture is identified. [employer] IMPRESSION: 1. Scattered fluid throughout nondilated small bowel may correlate with enteritis or mild ileus pattern. No bowel obstruction. 2. Left ovarian cyst measures 4.7 cm. Pelvic ultrasound could be considered, if clinical symptoms warrant. 3. Hepatic cysts, unchanged. 4. Prior cholecystectomy and appendectomy. 2 [employer] HCG QUALITATIVE, URINEon HCG ( test) Ql (U) Negative NEGATIVE [employer] HEPATIC FUNCTION PANELon Albumin [Mass/Vol] 4.6 g/dL [employer] ALP [Catalytic activity/Vol] 52 U/L [facility] ALT [Catalytic activity/Vol] 18 U/L [facility] AST [Catalytic activity/Vol] 31 U/L [facility] Bilirubin [Mass/Vol] 0.5 mg/dL [facility] Bilirubin.direct [Mass/Vol] 0.0 mg/dL [facility] Protein [Mass/Vol] 7.7 g/dL [facility] LIPASEon 01-30-2020 Lipase [Catalytic activity/Vol] 33 U/L 23 - 300 U/L [facility] URINALYSIS, MACROon 01-30-20 20 Bilirubin Ql (U) Negative NEGATIVE [facility] Clarity (U) CLEAR CLEAR [facility] Color (U) YELLOW YELLOW [facility] Glucose Test strip (U) [Mass/Vol] Negative NEGATIVE mg/dl [facility] Hemoglobin Ql (U) Negative NEGATIVE [facility] Interpretation and review of laboratory results Abnormal [facility] Ketones (U) [Mass/Vol] Negative NEGATIVE mg/dl [facility] Leukocyte esterase Test strip Ql (U) Negative NEGATIVE [facility] Nitrite Ql (U) Negative NEGATIVE [facility] pH (U) 7.5 [pH] High [facility] Protein Ql (U) Negative NEGATIVE mg/dl [facility] Specific gravity (U) [Rel density] 1.015 [facility] Urobilinogen (U) [Mass/Vol] 0.2 [facility] Vital Signs Date Time Vital Sign Value Performing Clinician Facility 08-14-2023 18:07-0400 Diastolic blood pressure 74 mm[Hg] CAD APPLICATION SUPPORT SPECIALIST-C Jaquan Cristhian Work Phone: [facility] 08-14-2023 18:07-0400 Heart rate 66 /min CAD APPLICATION SUPPORT SPECIALIST-C Jaquan Cristhian Work Phone: [facility] 08-14-2023 18:07-0400 Respiratory rate 18 /min CAD APPLICATION SUPPORT SPECIALIST-C Jaquan Cristhian Work Phone: [facility] 08-14-2023 18:07-0400 SaO2% (BldA) [Mass fraction] 99 % CAD APPLICATION SUPPORT SPECIALIST-C Jaquan Cristhian Work Phone: [facility] 08-14-2023 18:07-0400 Systolic blood pressure 110 mm[Hg] CAD APPLICATION SUPPORT SPECIALIST-C Jaquan Cristhian Work Phone: [facility] 08-14-2023 16:17-0400 Body height 167.64 cm CAD APPLICATION SUPPORT SPECIALIST-C Jaquan Cristhian Work Phone: [facility] 08-14-2023 16:17-0400 Body temperature 97.5 [degF] CAD APPLICATION SUPPORT SPECIALIST-C Jaquan Cristhian Work Phone: [facility] 08-14-2023 16:17-0400 Body weight 78.92 kg CAD APPLICATION SUPPORT SPECIALIST-C Jaquan Cristhian Work Phone: [facility] 08-09-2023 13:51-0400 Diastolic blood pressure 79 mm[Hg] Vic Ramos MD Work Phone: [facility] 08-09-2023 13:51-0400 Heart rate 76 /min Vic Ramos MD Work Phone: [facility] 08-09-2023 13:51-0400 Systolic blood pressure 113 mm[Hg] Vic Ramos MD Work Phone: [facility] 08-04-2023 08:23-0400 Body mass index (BMI) [Ratio] 29.21 kg/m2 Boogie Murguia MD Work Phone: [facility] 08-04-2023 08:23-0400 Body weight 82.1 kg Boogie Murguia MD Work Phone: [facility] 07-31-2023 13:21-0400 Diastolic blood pressure 55 mm[Hg] CAD APPLICATION SUPPORT SPECIALIST-C Jaquan Cristhian Work Phone: [facility] 07-31-2023 13:21-0400 Heart rate 64 /min CAD APPLICATION SUPPORT SPECIALIST-C Jaquan Cristhian Work Phone: [facility] 07-31-2023 13:21-0400 Respiratory rate 18 /min CAD APPLICATION SUPPORT SPECIALIST-C Jaquan Cristhian Work Phone: [facility] 07-31-2023 13:21-0400 SaO2% (BldA) [Mass fraction] 97 % CAD APPLICATION SUPPORT SPECIALIST-C Jaquan Cristhina Work Phone: [facility] 07-31-2023 13:21-0400 Systolic blood pressure 104 mm[Hg] CAD APPLICATION SUPPORT SPECIALIST-C Jaquan Cristhian Work Phone: [facility] 07-31-2023 10:21-0400 Body height 168.91 cm CAD APPLICATION SUPPORT SPECIALIST-C Jaquan Cristhian Work Phone: [facility] 07-31-2023 10:21-0400 Body temperature 98.2 [degF] CAD APPLICATION SUPPORT SPECIALIST-C Jaquan Cristhian Work Phone: [facility] 07-31-2023 10:21-0400 Body weight 79 kg CAD APPLICATION SUPPORT SPECIALIST-C Jaquan Cristhian Work Phone: [facility] 07-17-2023 21:45-0400 Body temperature 98.2 [degF] CAD APPLICATION SUPPORT SPECIALIST-C Jaquan Cristhian Work Phone: [facility] 07-17-2023 21:45-0400 Diastolic blood pressure 73 mm[Hg] CAD APPLICATION SUPPORT SPECIALIST-C Jaquan Cristhian Work Phone: [facility] 07-17-2023 21:45-0400 Heart rate 66 /min CAD APPLICATION SUPPORT SPECIALIST-C Jaquan Cristhian Work Phone: [facility] 07-17-2023 21:45-0400 Respiratory rate 16 /min CAD APPLICATION SUPPORT SPECIALIST-C Jaquan Cristhian Work Phone: [facility] 07-17-2023 21:45-0400 SaO2% (BldA) [Mass fraction] 97 % CAD APPLICATION SUPPORT SPECIALIST-C Jaquan Cristhian Work Phone: [facility] 07-17-2023 21:45-0400 Systolic blood pressure 108 mm[Hg] CAD APPLICATION SUPPORT SPECIALIST-C Jaquan Cristhian Work Phone: [facility] 07-17-2023 12:39-0400 Body height 167.64 cm CAD APPLICATION SUPPORT SPECIALIST-C Jaquan Cristhian Work Phone: [facility] 07-17-2023 08:45-0400 Body weight 79.5 kg CAD APPLICATION SUPPORT SPECIALIST-C Jaquan Cristhian Work Phone: [facility] 07-17-2023 07:30-0400 Diastolic blood pressure 53 mm[Hg] CAD APPLICATION SUPPORT SPECIALIST-C Jaquan Cristhian Work Phone: [facility] 07-17-2023 07:30-0400 Heart rate 62 /min CAD APPLICATION SUPPORT SPECIALIST-C Jaquan Cristhian Work Phone: [facility] 07-17-2023 07:30-0400 Respiratory rate 16 /min CAD APPLICATION SUPPORT SPECIALIST-C Jaquan Cristhian Work Phone: [facility] 07-17-2023 07:30-0400 SaO2% (BldA) [Mass fraction] 96 % CAD APPLICATION SUPPORT SPECIALIST-C Jaquan Cristhian Work Phone: [facility] 07-17-2023 07:30-0400 Systolic blood pressure 106 mm[Hg] CAD APPLICATION SUPPORT SPECIALIST-C Jaquan Cristhian Work Phone: [facility] 07-16-2023 14:44-0400 Body height 167.64 cm CAD APPLICATION SUPPORT SPECIALIST-C Jaquan Cristhian Work Phone: [facility] 07-16-2023 14:44-0400 Body temperature 97.6 [degF] CAD APPLICATION SUPPORT SPECIALIST-C Jaquan Cristhian Work Phone: [facility] 07-16-2023 14:44-0400 Body weight 79.95 kg CAD APPLICATION SUPPORT SPECIALIST-C Jaquan Cristhian Work Phone: [facility] 07-03-2023 07:00-0400 Body temperature 98.6 [degF] David Wodrich DO Work Phone: [facility] 07-03-2023 07:00-0400 Diastolic blood pressure 57 mm[Hg] David Wodrich DO Work Phone: [facility] 07-03-2023 07:00-0400 Heart rate 105 /min David Wodrich DO Work Phone: [facility] 07-03-2023 07:00-0400 Respiratory rate 18 /min David Wodrich DO Work Phone: [facility] 07-03-2023 07:00-0400 SaO2% (BldA) [Mass fraction] 100 % David Wodrich DO Work Phone: [facility] 07-03-2023 07:00-0400 Systolic blood pressure 99 mm[Hg] David Wodrich DO Work Phone: [facility] 06-29-2023 18:16-0400 Body height 167.6 cm David Wodrich DO Work Phone: [facility] 06-29-2023 18:16-0400 Body mass index (BMI) [Ratio] 27.12 kg/m2 David Wodrich DO Work Phone: [facility] 06-29-2023 18:16-0400 Body weight 76.2 kg David Wodrich DO Work Phone: [facility] 06-22-2023 11:14-0400 Body height 167.6 cm Sherry Magaña MD Work Phone: [facility] 06-22-2023 11:14-0400 Body mass index (BMI) [Ratio] 27.12 kg/m2 Sherry Magaña MD Work Phone: [facility] 06-22-2023 11:14-0400 Body weight 76.2 kg Sherry Magaña MD Work Phone: [facility] 06-18-2023 09:35-0400 Body height 167.6 cm Breanna Stern APRN.MINI SHIFTER Work Phone: [facility] 06-18-2023 09:35-0400 Body mass index (BMI) [Ratio] 27.29 kg/m2 Breanna Stern APRN.MINI SHIFTER Work Phone: [facility] 06-18-2023 09:35-0400 Body temperature 98.01 [degF] Breanna Stern COAL CUTTER.MINI SHIFTER Work Phone: [facility] 06-18-2023 09:35-0400 Body weight 76.66 kg Breanna Stern COAL CUTTER.MINI SHIFTER Work Phone: [facility] 06-18-2023 09:35-0400 Diastolic blood pressure 82 mm[Hg] Breanna Stern COAL CUTTER.MINI SHIFTER Work Phone: [facility] 06-18-2023 09:35-0400 Heart rate 78 /min Breanna Stern COAL CUTTER.MINI SHIFTER Work Phone: [facility] 06-18-2023 09:35-0400 SaO2% (BldA) [Mass fraction] 100 % Breanna Stern COAL CUTTER.MINI SHIFTER Work Phone: [facility] 06-18-2023 09:35-0400 Systolic blood pressure 142 mm[Hg] Breanna Stern COAL CUTTER.MINI SHIFTER Work Phone: [facility] 05-31-2023 00:53-0400 Diastolic blood pressure 82 mm[Hg] CAD APPLICATION SUPPORT SPECIALIST-C Jaquan Cristhian Work Phone: [facility] 05-31-2023 00:53-0400 Heart rate 51 /min CAD APPLICATION SUPPORT SPECIALIST-C Jaquan Cristhian Work Phone: [facility] 05-31-2023 00:53-0400 Respiratory rate 18 /min CAD APPLICATION SUPPORT SPECIALIST-C Jaquan Cristhian Work Phone: [facility] 05-31-2023 00:53-0400 SaO2% (BldA) [Mass fraction] 91 % CAD APPLICATION SUPPORT SPECIALIST-C Jaquan Cristhian Work Phone: [facility] 05-31-2023 00:53-0400 Systolic blood pressure 142 mm[Hg] CAD APPLICATION SUPPORT SPECIALIST-C Jaquan Cristhian Work Phone: [facility] 05-30-2023 15:25-0400 Body height 167.64 cm CAD APPLICATION SUPPORT SPECIALIST-C Jaquan Crsithian Work Phone: [facility] 05-30-2023 15:25-0400 Body temperature 97.7 [degF] CAD APPLICATION SUPPORT SPECIALIST-C Jaquan Cristhian Work Phone: [facility] 05-30-2023 15:25-0400 Body weight 76.65 kg CAD APPLICATION SUPPORT SPECIALIST-C Jaquan Cristhian Work Phone: [facility] 05-17-2023 16:03-0400 Diastolic blood pressure 82 mm[Hg] [facility] 05-17-2023 16:03-0400 Heart rate 72 /min [facility] 05-17-2023 16:03-0400 Mean blood pressure 95 mm[Hg] [facility] 05-17-2023 16:03-0400 Respiratory rate 17 /min [facility] 05-17-2023 16:03-0400 SaO2% (BldA) [Mass fraction] 100 % [facility] 05-17-2023 16:03-0400 Systolic blood pressure 120 mm[Hg] [facility] 05-17-2023 15:30-0400 Diastolic blood pressure 86 mm[Hg] [facility] 05-17-2023 15:30-0400 Heart rate 71 /min [facility] 05-17-2023 15:30-0400 Mean blood pressure 103 mm[Hg] [facility] 05-17-2023 15:30-0400 Respiratory rate 16 /min [facility] 05-17-2023 15:30-0400 SaO2% (BldA) [Mass fraction] 100 % [facility] 05-17-2023 15:30-0400 Systolic blood pressure 136 mm[Hg] [facility] 05-17-2023 15:00-0400 Diastolic blood pressure 78 mm[Hg] [facility] 05-17-2023 15:00-0400 Heart rate 70 /min [facility] 05-17-2023 15:00-0400 Mean blood pressure 97 mm[Hg] [facility] 05-17-2023 15:00-0400 Respiratory rate 15 /min [facility] 05-17-2023 14:16-0400 Body temperature 97.7 [degF] [facility] 05-17-2023 14:16-0400 Heart rate 74 /min [facility] 05-14-2023 13:06-0400 Hourly Rounding Moncho Paster [facility] 05-14-2023 13:06-0400 Promise to Return Moncho Paster [facility] 05-14-2023 12:06-0400 Hourly Rounding Moncho Paster [facility] 05-14-2023 12:06-0400 Promise to Return Moncho Paster [facility] 05-14-2023 11:32-0400 Hourly Rounding Moncho Paster [facility] 05-14-2023 11:32-0400 Promise to Return Moncho Paster [facility] 05-14-2023 10:08-0400 Heart rate 57 /min Moncho Paster [facility] 05-14-2023 10:08-0400 SaO2% (BldA) [Mass fraction] 100 % Moncho Paster [facility] 05-14-2023 10:08-0400 Diastolic blood pressure 80 mm[Hg] Moncho Paster [facility] 05-14-2023 10:08-0400 Mean blood pressure 93 mm[Hg] Moncho Paster [facility] 05-14-2023 10:08-0400 Systolic blood pressure 119 mm[Hg] Moncho Paster [facility] 05-14-2023 10:08-0400 Body temperature 97.34 [degF] Moncho Paster [facility] 05-14-2023 07:32-0400 Heart rate 57 /min Moncho Paster [facility] 05-14-2023 07:32-0400 SaO2% (BldA) [Mass fraction] 100 % Moncho Paster [facility] 05-14-2023 07:32-0400 Diastolic blood pressure 66 mm[Hg] Moncho Paster [facility] 05-14-2023 07:32-0400 Mean blood pressure 77 mm[Hg] Moncho Paster [facility] 05-14-2023 07:32-0400 Systolic blood pressure 100 mm[Hg] Moncho Paster [facility] 05-14-2023 07:31-0400 Body temperature 97.34 [degF] Moncho Paster [facility] 05-14-2023 05:00-0400 Blood Pressure Location [facility] 05-14-2023 05:00-0400 Diastolic blood pressure 77 mm[Hg] Moncho Paster [facility] 05-14-2023 05:00-0400 Mean blood pressure 90 mm[Hg] Moncho Paster [facility] 05-14-2023 05:00-0400 Systolic blood pressure 116 mm[Hg] Moncho Paster [facility] 05-13-2023 23:38-0400 Heart rate 53 /min Moncho Paster [facility] 05-13-2023 23:38-0400 SaO2% (BldA) [Mass fraction] 100 % Moncho Paster [facility] 05-13-2023 23:38-0400 Respiratory rate 16 /min Moncho Paster [facility] 05-13-2023 23:37-0400 Mean blood pressure 92 mm[Hg] Moncho Paster [facility] 05-13-2023 23:00-0400 Blood Pressure Location [facility] P[facility] 05-13-2023 23:00-0400 Body temperature 97.34 [degF] Moncho Paster [facility] 05-13-2023 19:33-0400 Body temperature 97.52 [degF] Moncho Paster [facility] 05-13-2023 16:00-0400 Body temperature 98.06 [degF] Moncho Paster [facility] 05-13-2023 11:00-0400 Body temperature 98.24 [degF] Moncho Paster [facility] 05-12-2023 16:17-0400 Blood Pressure Location [facility]cho Paster [facility] 05-12-2023 16:00-0400 Respiratory rate 20 /min Moncho Paster [facility] 05-12-2023 15:55-0400 Mean blood pressure 86 mm[Hg] Moncho Paster [facility] 05-12-2023 15:55-0400 Respiratory rate 14 /min Moncho Paster [facility] 05-12-2023 15:50-0400 Mean blood pressure 87 mm[Hg] Moncho Paster [facility] 05-12-2023 15:50-0400 Respiratory rate 18 /min Moncho Paster [facility] 05-12-2023 15:36-0400 Body temperature 97.88 [degF] Moncho Paster [facility] 05-12-2023 15:30-0400 Respiratory rate 12 /min Moncho Paster [facility] 05-12-2023 15:25-0400 Respiratory rate 12 /min Moncho Paster [facility] 05-12-2023 13:19-0400 Heart rate 61 /min Moncho Paster [facility] 05-12-2023 09:32-0400 Heart rate 77 /min Moncho Paster [facility] 05-11-2023 16:43-0400 Diastolic blood pressure 67 mm[Hg] Mateusz Jose [facility] 05-11-2023 16:43-0400 Heart rate 75 /min Mateusz Jose [facility] 05-11-2023 16:43-0400 Mean blood pressure 83 mm[Hg] Mateusz Jose [facility] 05-11-2023 16:43-0400 Respiratory rate 18 /min Mateusz Jose [facility] 05-11-2023 16:43-0400 SaO2% (BldA) [Mass fraction] 100 % Mateusz Jose [facility] 05-11-2023 16:43-0400 Systolic blood pressure 115 mm[Hg] Mateusz Jose [facility] 05-11-2023 15:00-0400 Diastolic blood pressure 79 mm[Hg] Mateusz Jose [facility] 05-11-2023 15:00-0400 Heart rate 65 /min Mateusz Jose [facility] 05-11-2023 15:00-0400 Mean blood pressure 92 mm[Hg] Mateusz Jose [facility] 05-11-2023 15:00-0400 Systolic blood pressure 118 mm[Hg] Mateusz Jose [facility] 05-11-2023 14:30-0400 Heart rate 69 /min Mateusz Jose [facility] 05-11-2023 14:30-0400 Respiratory rate 18 /min Mateusz Jose [facility] 05-11-2023 14:30-0400 SaO2% (BldA) [Mass fraction] 100 % Mateusz Jose [facility] 05-11-2023 12:00-0400 Body temperature 97.7 [degF] Mateusz Jose [facility] 05-11-2023 12:00-0400 Diastolic blood pressure 83 mm[Hg] Mateusz Jose [facility] 05-11-2023 12:00-0400 Heart rate 73 /min Mateusz Jose [facility] 05-11-2023 12:00-0400 Systolic blood pressure 147 mm[Hg] Mateusz Jose [facility] 05-09-2023 16:20-0400 Diastolic blood pressure 67 mm[Hg] Mateusz Jose [facility] 05-09-2023 16:20-0400 Heart rate 75 /min Mateusz Jose [facility] 05-09-2023 16:20-0400 Mean blood pressure 82 mm[Hg] Mateusz Jose [facility] 05-09-2023 16:20-0400 Respiratory rate 16 /min Mateusz Jose [facility] 05-09-2023 16:20-0400 SaO2% (BldA) [Mass fraction] 97 % Mateusz Jose [facility] 05-09-2023 16:20-0400 Systolic blood pressure 112 mm[Hg] Mateusz Jose [facility] 05-09-2023 15:40-0400 Diastolic blood pressure 69 mm[Hg] Mateusz Jose [facility] 05-09-2023 15:40-0400 Heart rate 69 /min Mateusz Jose [facility] 05-09-2023 15:40-0400 Mean blood pressure 84 mm[Hg] Mateusz Jose [facility] 05-09-2023 15:40-0400 Respiratory rate 18 /min Mateusz Jose [facility] 05-09-2023 15:40-0400 SaO2% (BldA) [Mass fraction] 100 % Mateusz Jose [facility] 05-09-2023 15:40-0400 Systolic blood pressure 113 mm[Hg] Mateusz Jose [facility] 05-09-2023 14:00-0400 Diastolic blood pressure 80 mm[Hg] Mateusz Jose [facility] 05-09-2023 14:00-0400 Heart rate 78 /min Mateusz Jose [facility] 05-09-2023 14:00-0400 Mean blood pressure 96 mm[Hg] Mateusz Jose [facility] 05-09-2023 14:00-0400 Respiratory rate 19 /min Mateusz Jose [facility] 05-09-2023 14:00-0400 Systolic blood pressure 129 mm[Hg] Mateusz Jose [facility] 05-09-2023 11:47-0400 Body temperature 97.7 [degF] Mateusz Jose [facility] 05-09-2023 11:47-0400 Heart rate 107 /min Mateusz Jose [facility] 05-06-2023 21:11-0400 Diastolic blood pressure 61 mm[Hg] Mateusz Jose [facility] 05-06-2023 21:11-0400 Heart rate 55 /min Mateusz Jose [facility] 05-06-2023 21:11-0400 Mean blood pressure 74 mm[Hg] Mateusz Jose [facility] 05-06-2023 21:11-0400 Respiratory rate 16 /min Mateusz Jose [facility] 05-06-2023 21:11-0400 SaO2% (BldA) [Mass fraction] 100 % Mateusz Jose [facility] 05-06-2023 21:11-0400 Systolic blood pressure 100 mm[Hg] Mateusz Jose [facility] 05-06-2023 20:20-0400 Diastolic blood pressure 73 mm[Hg] Mateusz Jose [facility] 05-06-2023 20:20-0400 Heart rate 53 /min Mateusz Jose [facility] 05-06-2023 20:20-0400 Mean blood pressure 89 mm[Hg] Mateusz Jose [facility] 05-06-2023 20:20-0400 Respiratory rate 14 /min Mateusz Jose [facility] 05-06-2023 20:20-0400 SaO2% (BldA) [Mass fraction] 100 % Mateusz Jose [facility] 05-06-2023 20:20-0400 Systolic blood pressure 122 mm[Hg] Mateusz Jose [facility] 05-06-2023 19:30-0400 Diastolic blood pressure 87 mm[Hg] Mateusz Jose [facility] 05-06-2023 19:30-0400 Heart rate 72 /min Mateusz Jose [facility] 05-06-2023 19:30-0400 Mean blood pressure 105 mm[Hg] Mateusz Jose [facility] 05-06-2023 19:30-0400 Respiratory rate 16 /min Mateusz Jose [facility] 05-06-2023 19:30-0400 SaO2% (BldA) [Mass fraction] 100 % Mateusz Jose [facility] 05-06-2023 19:30-0400 Systolic blood pressure 141 mm[Hg] Mateusz Jose [facility] 05-06-2023 15:45-0400 Body temperature 98.78 [degF] Mateusz Jose [facility] 05-06-2023 15:45-0400 Heart rate 66 /min Mateusz Jose [facility] 05-06-2023 15:45-0400 Respiratory rate 18 /min Mateusz Jose [facility] 04-28-2023 09:49-0400 Body height 167.6 cm Kasie Avalos MD Work Phone: [facility] 04-28-2023 09:49-0400 Body temperature 96.6 [degF] Kasie Avalos MD Work Phone: [facility] 04-28-2023 09:49-0400 Body weight 79.38 kg Kasie Avalos MD Work Phone: [facility] 04-28-2023 09:49-0400 Diastolic blood pressure 75 mm[Hg] Kasie Avalos MD Work Phone: [facility] 04-28-2023 09:49-0400 Heart rate 80 /min Kasie Avalos MD Work Phone: [facility] 04-28-2023 09:49-0400 SaO2% (BldA) [Mass fraction] 100 % Kasie Avalos MD Work Phone: [facility] 04-28-2023 09:49-0400 Systolic blood pressure 106 mm[Hg] Kasie Avalos MD Work Phone: [facility] 04-06-2023 14:00-0500 Diastolic blood pressure 59 mm[Hg] CAD APPLICATION SUPPORT SPECIALIST-C Jaquan Cristhian Work Phone: [facility] 04-06-2023 14:00-0500 Heart rate 59 /min CAD APPLICATION SUPPORT SPECIALIST-C Jaquan Cristhian Work Phone: [facility] 04-06-2023 14:00-0500 Respiratory rate 16 /min CAD APPLICATION SUPPORT SPECIALIST-C Jaquan Cristhian Work Phone: [facility] 04-06-2023 14:00-0500 SaO2% (BldA) [Mass fraction] 98 % CAD APPLICATION SUPPORT SPECIALIST-C Jaquan Cristhian Work Phone: [facility] 04-06-2023 14:00-0500 Systolic blood pressure 113 mm[Hg] CAD APPLICATION SUPPORT SPECIALIST-C Jaquan Cristhian Work Phone: [facility] 04-06-2023 09:47-0500 Body height 167.64 cm CAD APPLICATION SUPPORT SPECIALIST-C Jaquan Cristhian Work Phone: [facility] 04-06-2023 09:47-0500 Body temperature 96.7 [degF] CAD APPLICATION SUPPORT SPECIALIST-C Jaquan Morrow Work Phone: [facility] 04-06-2023 09:47-0500 Body weight 81.1 kg CAD APPLICATION SUPPORT SPECIALIST-C Jaquan Morrow Work Phone: [facility] 04-02-2023 17:00-0500 Diastolic blood pressure 63 mm[Hg] [facility] 04-02-2023 17:00-0500 Heart rate 75 /min [facility] 04-02-2023 17:00-0500 Mean blood pressure 80 mm[Hg] [facility] 04-02-2023 17:00-0500 SaO2% (BldA) [Mass fraction] 99 % [facility] 04-02-2023 17:00-0500 Systolic blood pressure 113 mm[Hg] [facility] 04-02-2023 16:00-0500 Diastolic blood pressure 71 mm[Hg] [facility] 04-02-2023 16:00-0500 Heart rate 71 /min [facility] 04-02-2023 16:00-0500 Mean blood pressure 88 mm[Hg] [facility] 04-02-2023 16:00-0500 Respiratory rate 14 /min [facility] 04-02-2023 16:00-0500 SaO2% (BldA) [Mass fraction] 100 % [facility] 04-02-2023 16:00-0500 Systolic blood pressure 123 mm[Hg] [facility] 04-02-2023 15:00-0500 Diastolic blood pressure 55 mm[Hg] [facility] 04-02-2023 15:00-0500 Heart rate 76 /min [facility] 04-02-2023 15:00-0500 Mean blood pressure 73 mm[Hg] [facility] 04-02-2023 15:00-0500 Respiratory rate 17 /min [facility] 04-02-2023 15:00-0500 Systolic blood pressure 109 mm[Hg] [facility] 04-02-2023 10:54-0500 Body temperature 98.6 [degF] [facility] 04-02-2023 10:54-0500 Heart rate 73 /min [facility] 04-02-2023 10:54-0500 Respiratory rate 16 /min [facility] 03-20-2023 08:41-0500 Body temperature 97.5 [degF] Melisa Barker MD Work Phone: 5(538)[phone] [place] [address] 03-20-2023 08:41-0500 Diastolic blood pressure 74 mm[Hg] Melisa Barker MD Work Phone: 8(874)[phone] [place] [address] 03-20-2023 08:41-0500 Heart rate 62 /min Melisa Barker MD Work Phone: 0(884)[phone] [place] [address] 03-20-2023 08:41-0500 Respiratory rate 18 /min Melisa Barker MD Work Phone: 6(822)[phone] [place] [address] 03-20-2023 08:41-0500 SaO2% (BldA) [Mass fraction] 98 % Melisa Barker MD Work Phone: 0(051)[phone] [place] [address] 03-20-2023 08:41-0500 Systolic blood pressure 131 mm[Hg] Melisa Barker MD Work Phone: 5(139)[phone] [place] [address] 03-16-2023 13:47-0500 Body height 167.6 cm Melisa Barker MD Work Phone: [facility] 03-16-2023 13:47-0500 Body mass index (BMI) [Ratio] 32.99 kg/m2 Melisa Barker MD Work Phone: [facility] 03-16-2023 13:47-0500 Body weight 92.7 kg Melisa Barker MD Work Phone: [facility] 03-16-2023 12:00-0500 Diastolic blood pressure 70 mm[Hg] Earnest Johnie [facility] 03-16-2023 12:00-0500 Heart rate 69 /min Earnest Johnie [facility] 03-16-2023 12:00-0500 Mean blood pressure 84 mm[Hg] Earnest Johnie [facility] 03-16-2023 12:00-0500 Systolic blood pressure 113 mm[Hg] Earnest Johnie [facility] 03-16-2023 11:30-0500 Diastolic blood pressure 86 mm[Hg] Earnest Johnie [facility] 03-16-2023 11:30-0500 Heart rate 61 /min Earnest Johnie [facility] 03-16-2023 11:30-0500 Mean blood pressure 102 mm[Hg] Earnest Johnie [facility] 03-16-2023 11:30-0500 Respiratory rate 16 /min Earnest Johnie [facility] 03-16-2023 11:30-0500 Systolic blood pressure 133 mm[Hg] Earnest Johnie [facility] 03-16-2023 11:07-0500 Diastolic blood pressure 83 mm[Hg] Earnest Johnie [facility] 03-16-2023 11:07-0500 Heart rate 63 /min Earnest Johnie [facility] 03-16-2023 11:07-0500 Mean blood pressure 94 mm[Hg] Earnest Johnie [facility] 03-16-2023 11:07-0500 SaO2% (BldA) [Mass fraction] 100 % Earnest Blancoe [facility] 03-16-2023 11:07-0500 Systolic blood pressure 116 mm[Hg] Earnest Blancoe [facility] 03-16-2023 10:21-0500 Body temperature 97.52 [degF] Earnest Blancoe [facility] 03-16-2023 10:21-0500 Heart rate 70 /min Earnest Blancoe [facility] 03-16-2023 10:21-0500 SaO2% (BldA) [Mass fraction] 100 % Earnest Blancoe [facility] 03-15-2023 18:00-0500 Diastolic blood pressure 75 mm[Hg] Earnest Blancoe [facility] 03-15-2023 18:00-0500 Heart rate 68 /min Earnest Blancoe [facility] 03-15-2023 18:00-0500 Mean blood pressure 94 mm[Hg] Earnest Blancoe [facility] 03-15-2023 18:00-0500 Respiratory rate 16 /min Earnest Blancoe [facility] 03-15-2023 18:00-0500 SaO2% (BldA) [Mass fraction] 98 % Earnest Johnie [facility] 03-15-2023 18:00-0500 Systolic blood pressure 131 mm[Hg] Earnest Johnie [facility] 03-15-2023 17:19-0500 Diastolic blood pressure 66 mm[Hg] Earnest Johnie [facility] 03-15-2023 17:19-0500 Heart rate 56 /min Earnest Johnie [facility] 03-15-2023 17:19-0500 Mean blood pressure 79 mm[Hg] Earnest Johnie [facility] 03-15-2023 17:19-0500 Respiratory rate 18 /min Earnest Johnie [facility] 03-15-2023 17:19-0500 SaO2% (BldA) [Mass fraction] 95 % Earnest Johnie [facility] 03-15-2023 17:19-0500 Systolic blood pressure 104 mm[Hg] Earnest Johnie [facility] 03-15-2023 16:23-0500 Diastolic blood pressure 72 mm[Hg] Earnest Johnie [facility] 03-15-2023 16:23-0500 Heart rate 58 /min Earnest Johnie [facility] 03-15-2023 16:23-0500 Mean blood pressure 90 mm[Hg] Earnest Johnie [facility] 03-15-2023 16:23-0500 Respiratory rate 20 /min Earnest Johnie [facility] 03-15-2023 16:23-0500 SaO2% (BldA) [Mass fraction] 99 % Earnest Johnie [facility] 03-15-2023 16:23-0500 Systolic blood pressure 126 mm[Hg] Earnest Johnie [facility] 03-15-2023 11:41-0500 Body temperature 97.88 [degF] Earnest Johnie [facility] 03-15-2023 11:41-0500 Heart rate 71 /min Earnest Jett [facility] 03-15-2023 11:41-0500 Respiratory rate 26 /min Earnest Jett [facility] 03-10-2023 11:50-0500 Body temperature 97.9 [degF] Sherry Magaña MD Work Phone: [facility] 03-10-2023 11:50-0500 Diastolic blood pressure 85 mm[Hg] Sherry Magaña MD Work Phone: [facility] 03-10-2023 11:50-0500 Heart rate 73 /min Sherry Magaña MD Work Phone: [facility] 03-10-2023 11:50-0500 Respiratory rate 18 /min Sherry Magaña MD Work Phone: [facility] 03-10-2023 11:50-0500 SaO2% (BldA) [Mass fraction] 100 % Sherry Magaña MD Work Phone: [facility] 03-10-2023 11:50-0500 Systolic blood pressure 137 mm[Hg] Sherry Magaña MD Work Phone: [facility] 03-10-2023 08:32-0500 Body mass index (BMI) [Ratio] 29.69 kg/m2 Sherry Magaña MD Work Phone: [facility] 03-10-2023 08:32-0500 Body weight 83.4 kg Sherry Magaña MD Work Phone: [facility] 03-05-2023 06:42-0500 Body height 167.6 cm Sherry Magaña MD Work Phone: [facility] 02-13-2023 17:30-0500 Diastolic blood pressure 73 mm[Hg] CAD APPLICATION SUPPORT SPECIALIST-C Jaquan Morrow Work Phone: [facility] 02-13-2023 17:30-0500 Heart rate 61 /min CAD APPLICATION SUPPORT SPECIALIST-C Jaquan Cristhian Work Phone: [facility] 02-13-2023 17:30-0500 Respiratory rate 18 /min CAD APPLICATION SUPPORT SPECIALIST-C Jaquan Cristhian Work Phone: [facility] 02-13-2023 17:30-0500 SaO2% (BldA) [Mass fraction] 100 % CAD APPLICATION SUPPORT SPECIALIST-C Jaquan Cristhian Work Phone: [facility] 02-13-2023 17:30-0500 Systolic blood pressure 121 mm[Hg] CAD APPLICATION SUPPORT SPECIALIST-C Jaquan Cristhian Work Phone: [facility] 02-13-2023 10:43-0500 Body height 167.64 cm CAD APPLICATION SUPPORT SPECIALIST-C Jaquan Cristhian Work Phone: [facility] 02-13-2023 10:43-0500 Body weight 83 kg CAD APPLICATION SUPPORT SPECIALIST-C Jaquan Cristhian Work Phone: [facility] 02-13-2023 10:42-0500 Body temperature 98.2 [degF] CAD APPLICATION SUPPORT SPECIALIST-C Jaquan Cristhian Work Phone: [facility] 12-31-2022 15:49-0500 Diastolic blood pressure 82 mm[Hg] Mateusz Jose [facility] 12-31-2022 15:49-0500 Heart rate 81 /min Mateusz Jose [facility] 12-31-2022 15:49-0500 Mean blood pressure 96 mm[Hg] Mateusz Jose [facility] 12-31-2022 15:49-0500 Respiratory rate 16 /min Mateusz Jose [facility] 12-31-2022 15:49-0500 SaO2% (BldA) [Mass fraction] 100 % Mateusz Jose [facility] 12-31-2022 15:49-0500 Systolic blood pressure 124 mm[Hg] Mateusz Joes [facility] 12-31-2022 15:40-0500 Hourly Rounding Mateusz Jose [facility] 12-31-2022 15:40-0500 Promise to Return Mateusz Jose [facility] 12-31-2022 15:00-0500 Diastolic blood pressure 78 mm[Hg] Mateusz Jose [facility] 12-31-2022 15:00-0500 Heart rate 76 /min Mateusz Jose [facility] 12-31-2022 15:00-0500 Mean blood pressure 91 mm[Hg] Mateusz Jose [facility] 12-31-2022 15:00-0500 Systolic blood pressure 117 mm[Hg] Mateusz Jose [facility] 12-31-2022 14:40-0500 Hourly Rounding Mateusz Jose [facility] 12-31-2022 14:40-0500 Promise to Return Mateusz Jose [facility] 12-31-2022 14:00-0500 Diastolic blood pressure 83 mm[Hg] Mateusz Jose [facility] 12-31-2022 14:00-0500 Heart rate 71 /min Mateusz Jose [facility] 12-31-2022 14:00-0500 Mean blood pressure 99 mm[Hg] Mateusz Jose [facility] 12-31-2022 14:00-0500 Systolic blood pressure 132 mm[Hg] Mateusz Jose [facility] 12-31-2022 13:40-0500 Hourly Rounding Mateusz Jose [facility] 12-31-2022 13:40-0500 Promise to Return Mateusz Garcia [facility] 12-31-2022 12:42-0500 Body temperature 97.7 [degF] Mateusz Garcia [facility] 12-31-2022 12:42-0500 Heart rate 88 /min Mateusz Garcia [facility] 12-04-2022 09:54-0400 Body height 166 cm Agustin Zamorano MD Work Phone: [facility] 12-04-2022 09:54-0400 Body weight 83.78 kg Agustin Zamorano MD Work Phone: [facility] 12-04-2022 09:54-0400 Diastolic blood pressure 62 mm[Hg] Agustin Zamorano MD Work Phone: [facility] 12-04-2022 09:54-0400 Heart rate 91 /min Agustin Zamorano MD Work Phone: [facility] 12-04-2022 09:54-0400 Systolic blood pressure 112 mm[Hg] Agustin Zamorano MD Work Phone: [facility] 11-04-2022 12:00-0400 Body temperature 97.7 [degF] Rheu Jeanne Work Phone: [facility] 11-04-2022 12:00-0400 Diastolic blood pressure 65 mm[Hg] Rheu Jeanne Work Phone: [facility] 11-04-2022 12:00-0400 Heart rate 97 /min Rheu Jeanne Work Phone: [facility] 11-04-2022 09:19-0400 Body height 167.6 cm Deacon Kat MD Work Phone: [facility] 11-04-2022 09:19-0400 Body temperature 97.81 [degF] Deacon Kat MD Work Phone: [facility] 11-04-2022 09:19-0400 Body weight 83.46 kg Deacon Kat MD Work Phone: [facility] 11-04-2022 09:19-0400 Diastolic blood pressure 81 mm[Hg] Deacon Kat MD Work Phone: [facility] 11-04-2022 09:19-0400 Heart rate 82 /min Deacon Kat MD Work Phone: [facility] 11-04-2022 09:19-0400 Respiratory rate 18 /min Deacon Kat MD Work Phone: [facility] 11-04-2022 09:19-0400 SaO2% (BldA) [Mass fraction] 98 % Deacon Kat MD Work Phone: [facility] 11-04-2022 09:19-0400 Systolic blood pressure 125 mm[Hg] Deacon Kat MD Work Phone: [facility] 11-02-2022 13:52-0400 Diastolic blood pressure 82 mm[Hg] Dimitri Walker MD Work Phone: [facility] 11-02-2022 13:52-0400 Heart rate 82 /min Dimitri Walker MD Work Phone: [facility] 11-02-2022 13:52-0400 Respiratory rate 18 /min Dimitri Walker MD Work Phone: [facility] 11-02-2022 13:52-0400 Systolic blood pressure 128 mm[Hg] Dimitri Walker MD Work Phone: [facility] 11-02-2022 10:35-0400 Body mass index (BMI) [Ratio] 30.18 kg/m2 Dimitri Walker MD Work Phone: [facility] 11-02-2022 10:35-0400 Body weight 84.82 kg Dimitri Walker MD Work Phone: [employer] Comment on above: stand up scale triage room 11-02-2022 10:34-0400 Body temperature 98.29 [degF] Dimitri Walker MD Work Phone: [facility] 11-02-2022 10:34-0400 SaO2% (BldA) [Mass fraction] 98 % Dimitri Walker MD Work Phone: [facility] 10-31-2022 08:30-0400 Diastolic blood pressure 67 mm[Hg] Jalyn Suresh DO Work Phone: [facility] 10-31-2022 08:30-0400 Systolic blood pressure 120 mm[Hg] Jalyn Suresh DO Work Phone: [facility] 10-31-2022 06:32-0400 Body temperature 97.7 [degF] Jalyn Suresh DO Work Phone: [facility] 10-31-2022 06:32-0400 Heart rate 92 /min Jalyn Suresh DO Work Phone: [facility] [employer] 10-31-2022 06:32-0400 Respiratory rate 19 /min Jalyn Suresh DO Work Phone: [facility] 10-31-2022 06:32-0400 SaO2% (BldA) [Mass fraction] 100 % Jalyn Suresh DO Work Phone: [facility] 10-20-2022 11:52-0400 Diastolic blood pressure 86 mm[Hg] Earnest Jett [facility] 10-20-2022 11:52-0400 Heart rate 75 /min Earnest Jett [facility] 10-20-2022 11:52-0400 Respiratory rate 15 /min Earnest Jett [facility] 10-20-2022 11:52-0400 SaO2% (BldA) [Mass fraction] 99 % Earnest Jett [facility] 10-20-2022 11:52-0400 Systolic blood pressure 141 mm[Hg] Earnest Johnie [facility] 10-20-2022 10:31-0400 Diastolic blood pressure 70 mm[Hg] Earnest Johnie [facility] 10-20-2022 10:31-0400 Heart rate 70 /min Earnest Johnie [facility] 10-20-2022 10:31-0400 Mean blood pressure 92 mm[Hg] Earnest Johnie [facility] 10-20-2022 10:31-0400 Respiratory rate 16 /min Earnest Johnie [facility] 10-20-2022 10:31-0400 SaO2% (BldA) [Mass fraction] 100 % Earnest Johnie [facility] 10-20-2022 10:31-0400 Systolic blood pressure 137 mm[Hg] Earnest Johnie [facility] 10-20-2022 09:17-0400 Diastolic blood pressure 63 mm[Hg] Earnest Johnie [facility] 10-20-2022 09:17-0400 Heart rate 77 /min Earnest Johnie [facility] 10-20-2022 09:17-0400 Mean blood pressure 85 mm[Hg] Earnest Johnie [facility] 10-20-2022 09:17-0400 Respiratory rate 18 /min Earnest Johnie [facility] 10-20-2022 09:17-0400 SaO2% (BldA) [Mass fraction] 100 % Earnest Johnie [facility] 10-20-2022 09:17-0400 Systolic blood pressure 128 mm[Hg] Earnest Johnie [facility] 10-20-2022 08:17-0400 Body temperature 97.88 [degF] Earnest Johnie [facility] 10-19-2022 13:30-0400 Diastolic blood pressure 82 mm[Hg] Earnest Johnie [facility] 10-19-2022 13:30-0400 Heart rate 67 /min Earnest Johnie [facility] 10-19-2022 13:30-0400 Mean blood pressure 100 mm[Hg] Earnest Johnie [facility] 10-19-2022 13:30-0400 Respiratory rate 20 /min Earnest Blancoe [facility] 10-19-2022 13:30-0400 SaO2% (BldA) [Mass fraction] 100 % Earnest Johnie [facility] 10-19-2022 13:30-0400 Systolic blood pressure 136 mm[Hg] Earnest Johnie [facility] 10-19-2022 13:00-0400 Heart rate 61 /min Earnest Blancoe [facility] 10-19-2022 13:00-0400 Respiratory rate 18 /min Earnest Blancoe [facility] 10-19-2022 13:00-0400 Systolic blood pressure 127 mm[Hg] Earnest Johnie [facility] 10-19-2022 12:30-0400 Diastolic blood pressure 80 mm[Hg] Earnest Johnie [facility] 10-19-2022 12:30-0400 Heart rate 60 /min Earnest Johnie [facility] 10-19-2022 12:30-0400 Mean blood pressure 97 mm[Hg] Earnest Jett [facility] 10-19-2022 12:30-0400 Respiratory rate 20 /min Earnest Jett [facility] 10-19-2022 12:30-0400 SaO2% (BldA) [Mass fraction] 100 % Earnest Jett [facility] 10-19-2022 12:30-0400 Systolic blood pressure 132 mm[Hg] Earnest Jett [facility] 10-19-2022 08:34-0400 Body temperature 96.62 [degF] Earnest Jett [facility] 10-19-2022 08:34-0400 Heart rate 73 /min Earnest Jett [facility] 09-28-2022 07:54-0400 Body height 167.[address] Work Phone: [facility] 09-28-2022 07:54-0400 Body weight 83.[address] Work Phone: [facility] 09-18-2022 15:12-0400 Body height 167.6 cm Breanna Stern [employer] Work Phone: [facility] 09-18-2022 15:12-0400 Body temperature 97.5 [degF] Breanna Stern [employer] Work Phone: [facility] 09-18-2022 15:12-0400 Body weight 83.46 kg Breanna Stern [employer] Work Phone: [facility] 09-18-2022 15:12-0400 Diastolic blood pressure 88 mm[Hg] Breanna Stern [employer] Work Phone: [facility] 09-18-2022 15:12-0400 Heart rate 65 /min Breanna Stern [employer] Work Phone: [facility] 09-18-2022 15:12-0400 SaO2% (BldA) [Mass fraction] 99 % Breanna Stern [employer] Work Phone: [facility] 09-18-2022 15:12-0400 Systolic blood pressure 118 mm[Hg] Breanna Stern [employer] Work Phone: [facility] 07-29-2022 08:40-0400 Blood Pressure Location Rajni Lue [facility] 07-29-2022 08:40-0400 Diastolic blood pressure 86 mm[Hg] Rajni Lue [facility] 07-29-2022 08:40-0400 Heart rate 71 /min Rajni Lue [facility] 07-29-2022 08:40-0400 Systolic blood pressure 127 mm[Hg] Rajni Lue [facility] 07-22-2022 10:08-0400 Body height 167.6 cm Kasie Avalos MD Work Phone: [facility] 07-22-2022 10:08-0400 Body temperature 98.1 [degF] Kasie Avalos MD Work Phone: [facility] 07-22-2022 10:08-0400 Body weight 79.92 kg Kasie Aavlos MD Work Phone: [facility] 07-22-2022 10:08-0400 Diastolic blood pressure 89 mm[Hg] Kasie Avalos MD Work Phone: [facility] 07-22-2022 10:08-0400 Heart rate 72 /min Kasie Avalos MD Work Phone: [facility] 07-22-2022 10:08-0400 SaO2% (BldA) [Mass fraction] 100 % Kasie Avalos MD Work Phone: [facility] 07-22-2022 10:08-0400 Systolic blood pressure 136 mm[Hg] Kasie Avalos MD Work Phone: [facility] 06-12-2022 10:00-0400 Body height 167.6 cm Aliyah Ziganti PA-C Work Phone: [facility] 06-12-2022 10:00-0400 Body temperature 97.5 [degF] Aliyah Ziganti PA-C Work Phone: [facility] 06-12-2022 10:00-0400 Body weight 84.37 kg Aliyah Ziganti PA-C Work Phone: [facility] 06-12-2022 10:00-0400 Diastolic blood pressure 78 mm[Hg] Aliyah Ziganti PA-C Work Phone: [facility] 06-12-2022 10:00-0400 Heart rate 68 /min Aliyah Ziganti PA-C Work Phone: [facility] 06-12-2022 10:00-0400 Systolic blood pressure 123 mm[Hg] Aliyah Ziganti PA-C Work Phone: [facility] 06-10-2022 17:43-0400 Diastolic blood pressure 74 mm[Hg] [facility] 06-10-2022 17:43-0400 Heart rate 65 /min [facility] 06-10-2022 17:43-0400 Mean blood pressure 90 mm[Hg] [facility] 06-10-2022 17:43-0400 Respiratory rate 16 /min [facility] 06-10-2022 17:43-0400 SaO2% (BldA) [Mass fraction] 100 % [facility] 06-10-2022 17:43-0400 Systolic blood pressure 122 mm[Hg] [facility] 06-10-2022 17:00-0400 Diastolic blood pressure 77 mm[Hg] [facility] 06-10-2022 17:00-0400 Heart rate 66 /min [facility] 06-10-2022 17:00-0400 Mean blood pressure 94 mm[Hg] [facility] 06-10-2022 17:00-0400 Systolic blood pressure 129 mm[Hg] [facility] 06-10-2022 16:00-0400 Heart rate 83 /min [facility] 06-10-2022 16:00-0400 Mean blood pressure 93 mm[Hg] [facility] 06-10-2022 16:00-0400 Systolic blood pressure 130 mm[Hg] [facility] 06-10-2022 12:32-0400 Body temperature 97.7 [degF] [facility] 06-10-2022 12:32-0400 Heart rate 88 /min [facility] 06-10-2022 12:32-0400 Respiratory rate 18 /min [facility] 03-06-2022 15:30-0500 Diastolic blood pressure 70 mm[Hg] Deacon Kat MD Work Phone: [facility] 03-06-2022 15:30-0500 Heart rate 67 /min Deacon Kat MD Work Phone: [facility] 03-06-2022 15:30-0500 Respiratory rate 16 /min Deacon Kat MD Work Phone: [facility] 03-06-2022 15:30-0500 SaO2% (BldA) [Mass fraction] 100 % Deacon Kat MD Work Phone: [facility] 03-06-2022 15:30-0500 Systolic blood pressure 105 mm[Hg] Deacon Kat MD Work Phone: [facility] 03-06-2022 13:00-0500 Body temperature 96.8 [degF] Deacon Kat MD Work Phone: [facility] 03-05-2022 09:33-0500 Body weight 89.81 kg Breanna Stern APRN.[employer] Work Phone: [facility] 02-04-2022 09:23-0500 Body height 167.[address] Work Phone: [facility] 02-04-2022 09:23-0500 Body weight 93.[address] Work Phone: [facility] 02-03-2022 14:55-0500 Body height 167.6 cm Breanna Stern APRN.[employer] Work Phone: [facility] 02-03-2022 14:55-0500 Body temperature 97 [degF] Breanna Stern APRN.[employer] Work Phone: [facility] 02-03-2022 14:55-0500 Body weight 93.44 kg Breanna Stern APRN.[employer] Work Phone: [facility] 02-03-2022 14:55-0500 Diastolic blood pressure 81 mm[Hg] Breanna Stern APRN.[employer] Work Phone: [facility] 02-03-2022 14:55-0500 Heart rate 76 /min Breanna Stern APRN.[employer] Work Phone: [facility] 02-03-2022 14:55-0500 SaO2% (BldA) [Mass fraction] 99 % Breanna Stern APRN.[employer] Work Phone: [facility] 02-03-2022 14:55-0500 Systolic blood pressure 128 mm[Hg] Breanna Stern APRN.[employer] Work Phone: [facility] 01-28-2022 08:41-0500 Body height 167.6 cm Pac 2 Work Phone: [facility] 01-28-2022 08:41-0500 Body temperature 97.9 [degF] Pacc 2 Work Phone: [facility] 01-28-2022 08:41-0500 Body weight 94.8 kg Pacc 2 Work Phone: [facility] 01-28-2022 08:41-0500 Diastolic blood pressure 85 mm[Hg] Pacc 2 Work Phone: [facility] 01-28-2022 08:41-0500 Heart rate 65 /min Pacc 2 Work Phone: [facility] 01-28-2022 08:41-0500 Respiratory rate 16 /min Pacc 2 Work Phone: [facility] 01-28-2022 08:41-0500 SaO2% (BldA) [Mass fraction] 100 % Pacc 2 Work Phone: [facility] 01-28-2022 08:41-0500 Systolic blood pressure 131 mm[Hg] Pacc 2 Work Phone: [facility] 01-02-2022 11:06-0500 Body weight 92.99 kg Sabina Joy APRN.CNP Work Phone: [facility] 12-25-2021 10:10-0500 Diastolic blood pressure 76 mm[Hg] Britt Cross MD Work Phone: [facility] 12-25-2021 10:10-0500 Heart rate 74 /min Britt Cross MD Work Phone: [facility] 12-25-2021 10:10-0500 Respiratory rate 18 /min Britt Cross MD Work Phone: [facility] 12-25-2021 10:10-0500 SaO2% (BldA) [Mass fraction] 100 % Britt Cross MD Work Phone: [facility] 12-25-2021 10:10-0500 Systolic blood pressure 140 mm[Hg] Britt Cross MD Work Phone: [facility] 12-25-2021 08:26-0500 Body height 167.6 cm Britt Cross MD Work Phone: [facility] 12-25-2021 08:26-0500 Body temperature 98.1 [degF] Britt Cross MD Work Phone: [facility] 12-25-2021 08:26-0500 Body weight 92.99 kg Britt Cross MD Work Phone: [facility] 10-09-2021 15:44-0400 Body height 167.6 cm Sabina Vacco [employer] Work Phone: [facility] 10-09-2021 15:44-0400 Body weight 89.81 kg Sabina Vacco [employer] Work Phone: [facility] 08-30-2021 03:47-0400 Diastolic blood pressure 70 mm[Hg] Pablo Atwood Work Phone: [facility] 08-30-2021 03:47-0400 Systolic blood pressure 130 mm[Hg] Pablo Rai VALENZUELA Work Phone: [facility] 08-30-2021 03:46-0400 Body temperature 100.4 [degF] Pablo Atwood Work Phone: [facility] 08-30-2021 03:46-0400 Heart rate 107 /min Pablo Atwood Work Phone: [facility] 08-30-2021 03:46-0400 Respiratory rate 19 /min Pablo Atwood Work Phone: [facility] 08-30-2021 03:46-0400 SaO2% (BldA) [Mass fraction] 96 % Pablo Atwood Work Phone: [facility] 08-28-2021 07:54-0400 Body height 167.[address] Work Phone: [facility] 08-28-2021 07:54-0400 Body weight 90.[address] Work Phone: [facility] 08-17-2021 12:00-0400 Body height 167.64 cm Shanna June [facility] Other 08-17-2021 12:00-0400 Body mass index (BMI) [Ratio] 33.08 kg/m2 Shanna June Other [facility] Other 08-17-2021 12:00-0400 Body temperature 98.1 [degF] Shanna [facility] Other 08-17-2021 12:00-0400 Body weight 92.99 kg Shanna June [facility] Other 08-17-2021 12:00-0400 Diastolic blood pressure 80 mm[Hg] Shanna June [facility] Other 08-17-2021 12:00-0400 Respiratory rate 18 /min Shanna June [facility] Other 08-17-2021 12:00-0400 SaO2% (BldA) [Mass fraction] 99 % Shanna June [facility] Other 08-17-2021 12:00-0400 Systolic blood pressure 137 mm[Hg] Shanna June [facility] Other 07-27-2021 14:25-0400 Respiratory rate 18 /min Angela Do MD Work Phone: [facility] 07-27-2021 14:03-0400 SaO2% (BldA) [Mass fraction] 98 % Angela Do MD Work Phone: [facility] 07-27-2021 13:27-0400 Diastolic blood pressure 44 mm[Hg] Angela Do MD Work Phone: [facility] 07-27-2021 13:27-0400 Systolic blood pressure 110 mm[Hg] Angela Do MD Work Phone: [facility] 07-27-2021 10:18-0400 Body mass index (BMI) [Ratio] 31.47 kg/m2 Angela Do MD Work Phone: [facility] 07-27-2021 10:18-0400 Body temperature 98.6 [degF] Angela Do MD Work Phone: [facility] 07-27-2021 10:18-0400 Body weight 88.45 kg Angela Do MD Work Phone: [facility] 07-27-2021 10:18-0400 Heart rate 71 /min Angela Do MD Work Phone: [facility] 03-31-2021 11:00-0500 Body height 167.64 cm Shanna June [facility] Other 03-31-2021 11:00-0500 Body mass index (BMI) [Ratio] 33.08 kg/m2 Shanna June [facility] Other 03-31-2021 11:00-0500 Body temperature 98 [degF] Shanna June [facility] Other 03-31-2021 11:00-0500 Body weight 92.99 kg Shanna June [facility] Other 03-31-2021 11:00-0500 Diastolic blood pressure 91 mm[Hg] Shanna June [facility] Other 03-31-2021 11:00-0500 Respiratory rate 18 /min Shanna June [facility] Other 03-31-2021 11:00-0500 SaO2% (BldA) [Mass fraction] 100 % Shanna June [facility] Other 03-31-2021 11:00-0500 Systolic blood pressure 142 mm[Hg] Shanna June [facility] Other 01-28-2021 12:00-0500 Body height 167.64 cm Shanna June [facility] Other 01-28-2021 12:00-0500 Body mass index (BMI) [Ratio] 33.08 kg/m2 Shanna June [facility] Other 01-28-2021 12:00-0500 Body temperature 98 [degF] Shanna June [facility] Other 01-28-2021 12:00-0500 Body weight 92.99 kg Shanna June [facility] Other 01-28-2021 12:00-0500 Diastolic blood pressure 92 mm[Hg] Shanna June [facility] Other 01-28-2021 12:00-0500 Respiratory rate 18 /min Shanna June [facility] Other 01-28-2021 12:00-0500 SaO2% (BldA) [Mass fraction] 100 % Shanna June [facility] Other 01-28-2021 12:00-0500 Systolic blood pressure 143 mm[Hg] Shanna June [facility] Other 12-17-2020 17:30-0400 Body height 167.64 cm Shanna June [facility] Other 12-17-2020 17:30-0400 Body mass index (BMI) [Ratio] 32.92 kg/m2 Shanna June [facility] Other 12-17-2020 17:30-0400 Body temperature 98.2 [degF] Shanna June [facility] Other 12-17-2020 17:30-0400 Body weight 92.53 kg Shanna June [facility] Other 12-17-2020 17:30-0400 Diastolic blood pressure 71 mm[Hg] Shanna June [facility] Other 12-17-2020 17:30-0400 Respiratory rate 18 /min Shanna June [facility] Other 12-17-2020 17:30-0400 SaO2% (BldA) [Mass fraction] 100 % Shanna June [facility] Other 12-17-2020 17:30-0400 Systolic blood pressure 117 mm[Hg] Shanna Granadosault [facility] Other 12-14-2020 15:07-0400 Body height 167.6 cm Shanna June COAL CUTTER - CAD APPLICATION SUPPORT SPECIALIST Work Phone: [place] Work Phone: 12-14-2020 15:07-0400 Body mass index (BMI) [Ratio] 32.77 kg/m2 Shanna June COAL CUTTER - CAD APPLICATION SUPPORT SPECIALIST Work Phone: [place] Work Phone: 12-14-2020 15:07-0400 Body temperature 98.8 [degF] Shanna June COAL CUTTER - CAD APPLICATION SUPPORT SPECIALIST Work Phone: [place] Work Phone: 12-14-2020 15:07-0400 Body weight 92.08 kg Shanna June COAL CUTTER - CAD APPLICATION SUPPORT SPECIALIST Work Phone: [place] Work Phone: 12-14-2020 15:07-0400 Diastolic blood pressure 90 mm[Hg] Shanna June COAL CUTTER - CAD APPLICATION SUPPORT SPECIALIST Work Phone: [place] Work Phone: 12-14-2020 15:07-0400 Heart rate 85 /min Shanna June COAL CUTTER - CAD APPLICATION SUPPORT SPECIALIST Work Phone: [place] Work Phone: 12-14-2020 15:07-0400 Respiratory rate 20 /min Shanna June COAL CUTTER - CAD APPLICATION SUPPORT SPECIALIST Work Phone: [place] Work Phone: 12-14-2020 15:07-0400 SaO2% (BldA) [Mass fraction] 100 % Shanna June COAL CUTTER - CAD APPLICATION SUPPORT SPECIALIST Work Phone: [place] Work Phone: 12-14-2020 15:07-0400 Systolic blood pressure 139 mm[Hg] Shanna June COAL CUTTER - CAD APPLICATION SUPPORT SPECIALIST Work Phone: [facility] Work Phone: 07-02-2020 13:16-0400 Diastolic blood pressure 56 mm[Hg] Vaughn Ceja MD Work Phone: [facility] 07-02-2020 13:16-0400 Heart rate 71 /min Vaughn Ceja MD Work Phone: [facility] 07-02-2020 13:16-0400 Respiratory rate 18 /min Vaughn Ceja MD Work Phone: [facility] 07-02-2020 13:16-0400 SaO2% (BldA) [Mass fraction] 99 % Vaughn Ceja MD Work Phone: [facility] 07-02-2020 13:16-0400 Systolic blood pressure 165 mm[Hg] Vaughn Ceja MD Work Phone: [facility] 07-02-2020 12:44-0400 Body temperature 97.39 [degF] Vaughn Ceja MD Work Phone: [facility] 07-02-2020 12:35-0400 Body height 167.6 cm Vaughn Ceja MD Work Phone: [facility] 07-02-2020 12:35-0400 Body mass index (BMI) [Ratio] 37.12 kg/m2 Vaughn Ceja MD Work Phone: [facility] 07-02-2020 12:35-0400 Body weight 104.33 kg Vaughn Ceja MD Work Phone: [facility] 01-30-2020 17:34-0500 BP Diastolic 76 mm[Hg] Agustin [facility] 01-30-2020 17:34-0500 BP Systolic 139 mm[Hg] [facility] 01-30-2020 17:34-0500 Pulse (Heart Rate) 87 /min Agustin Imtiazdamion [facility] 01-30-2020 17:34-0500 Pulse Oximetry 100 % [facility] 01-30-2020 17:34-0500 Respiratory Rate 18 /min Agustin [facility] 01-30-2020 13:22-0500 Height 167.6 cm [facility] 01-30-2020 13:16-0500 Body Temperature 97.81 [degF] Agustin [facility] Encounters Encounter Date Encounter Type Care Provider Facility Start: 08-14-2023 End: 08-14-2023 Emergency department patient visit CAD APPLICATION SUPPORT SPECIALIST-C Jaquan Morrow Work Phone: [facility] Work Phone: Start: 08-12-2023 Telephone encounter Radha Arzate Gastroenterology Comment on above: Education Of Patient /family; Reminder Call (08/26/23 appt confirmed) Start: 08-09-2023 End: 08-09-2023 ambulatory VIC RAMOS Facility:[facility] Start: 08-09-2023 End: 08-09-2023 Patient encounter procedure Vic Ramos MD Work Phone: Pain Management Comment on above: Neuralgia and neurit is (Primary Dx); Median arcuate ligament syndrome (HCC) Start: 08-07-2023 End: 08-08-2023 Evaluation and management of inpatient ANAMIE MARCUS Facility:[facility] Start: 08-05-2023 ambulatory Boogie Sandy Work Phone: Pain Management Comment on above: Ketamine nasal spray Medication Renewal Start: 08-04-2023 Telephone encounter Boogie Tompkins ud, MD Work Phone: Pain Management Comment on above: Medication Problem Start: 08-04-2023 End: 08-06-2023 Evaluation and management of inpatient [facility] Facility:[facility] Start: 08-04-2023 End: 08-04-2023 ambulatory Rajni Lesli Santiagolesia Facility:[facility] Start: 08-04-2023 End: 08-04-2023 Patient encounter procedure Boogie Murguia MD Work Phone: Pain Management Comment on above: Chronic abdominal pa in (Primary Dx); Gastroesophageal reflux disease without esophagitis; Neuralgia and neuritis; Median arcuate ligament syndrome (HCC); S/P gastric bypass Start: 07-31-2023 End: 07-31-2023 Emergency department patient visit CAD APPLICATION SUPPORT SPECIALIST-C Jaquan Morrow Work Phone: [facility] Work Phone: Start: 07-30-2023 End: 07-31-2023 Emergency department patient visit THOMAS CALIX Facility:[facility] Start: 07-28-2023 End: 07-28-2023 ambulatory TINO MONAHAN Not Available Start: 07-19-2023 Orders Only Deacon sousa MD Work Phone: General Surgery Comment on above: Chronic nausea (Prim reji Dx); History of laparoscopic partial gastrectomy; History of sphincterotomy of sphincter of Oddi; Median arcuate ligament syndrome (HCC) Start: 07-17-2023 End: 07-20-2023 Evaluation and management of inpatient DEACON KAT Facility:[facility] Start: 07-17-2023 End: 07-17-2023 Evaluation and management of inpatient CAD APPLICATION SUPPORT SPECIALIST-Elroy Morrow Work Phone: [address] Surgical Work Phone: Start: 07-15-2023 End: 07-15-2023 ambulatory JAQUAN MORROW Facility:[facility] Start: 07-13-2023 Telephone encounter Natalie Jameson LPN Gastroenterology Comment on above: Appointment Start: 07-13-2023 ambulatory OLGA Granados ty:JENNIFER Edmondson Start: 07-09-2023 End: 07-09-2023 [facility] Pablo Lebron PSYD Work Phone: Neurology Comment on above: ARSALAN (generalized anx iety disorder) (Primary Dx); Panic disorder without agoraphobia; Moderate recurrent major depression (HCC) Start: 07-06-2023 End: 07-06-2023 Emergency department patient visit JAQUAN MORROW Facility:[facility] Start: 07-06-2023 End: 07-06-2023 ambulatory Francisco J Steve MD Work Phone: Urology Start: 07-06-2023 End: 07-06-2023 Patient encounter procedure Francisco J Steve MD Work Phone: Urology Comment on above: Urinary frequency (P rimary Dx); Urgency of urination Start: 06-29-2023 End: 07-05-2023 ambulatory DAVID VALADEZ [facility] Start: 06-29-2023 End: 06-29-2023 Subsequent hospital visit by physician Sheridan Mederos [facility] Start: 06-29-2023 End: 07-03-2023 Evaluation and management of inpatient David Valadez DO Work Phone: [facility] Comment on above: Epigastric pain (Loretta alla Dx); Median arcuate ligament syndrome (CMS-HCC); Nausea and vomiting, unspecified vomiting type; Other specified hyperalimentation; Generalized abdominal pain Start: 06-29-2023 End: 06-29-2023 ambulatory MARCOS MORENO Not Available Start: 06-22-2023 End: 06-22-2023 Office outpatient visit 10 minutes Sherry Magaña MD Work Phone: [facility] Physician Fabio Comment on above: Median arcuate ligam ent syndrome (CMS-HCC) (Primary Dx) Start: 06-22-2023 End: 06-22-2023 ambulatory SHERRY MAGAÑA [facility] Start: 06-18-2023 End: 06-18-2023 Emergency department patient visit JAQUAN MORROW Facility:[facility] Start: 06-18-2023 End: 06-18-2023 ambulatory Deacon Kat Facility:[facility] Start: 06-18-2023 End: 06-18-2023 Patient encounter procedure Breanna Stern APRN.CNP Work Phone: General Surgery Comment on above: Sudden onset of sharon re abdominal pain (Primary Dx); Nausea and vomiting, unspecified vomiting type; PEG (percutaneous endoscopic gastrostomy) status (HCC) Start: 06-17-2023 Telephone encounter May Ramey APRN.CNP Work Phone: Pain Management Comment on above: Appointment Start: 06-17-2023 End: 06-30-2023 ambulatory Jaquan L Cristhian Facility:[id number] Start: 06-15-2023 Telephone encounter Deacon shahid MD Work Phone: General Surgery Comment on above: Patient Update; Umm ent Question Start: 06-14-2023 Telephone encounter Stephanie Crystal Sumner DO Work Phone: [facility] Start: 06-14-2023 End: 06-14-2023 ambulatory Jaquan L Cristhian Facility:[facility] Afsaneh suarez Start: 06-10-2023 End: 06-15-2023 ambulatory Jaquan L Cristhian Facility:[id number] Start: 06-09-2023 End: 06-09-2023 [facility] Pablo Lebron PSYD Work Phone: Neurology Comment on above: ARSALAN (generalized anx iety disorder) (Primary Dx); Panic disorder without agoraphobia; Moderate recurrent major depression (HCC) Start: 06-06-2023 End: 06-09-2023 Evaluation and management of inpatient IMELDA SOSAA Facility:[facility] Start: 06-03-2023 End: 06-03-2023 ambulatory RYLEE [facility] Facility:[facility] Start: 06-02-2023 End: 06-02-2023 ambulatory Jaquan L Cristhian Facility:[facility] Afsaneh cárdenase Start: 06-01-2023 End: 06-01-2023 ambulatory Vic Ramos MD Work Phone: Pain Management Comment on above: Neuralgia and neurit is (Primary Dx); Gastroesophageal reflux disease without esophagitis; Median arcuate ligament syndrome (HCC); S/P gastric bypass Start: 06-01-2023 End: 06-01-2023 Telemedicine consultation with patient Vic Ramos MD Work Phone: [facility] Start: 05-31-2023 End: 06-09-2023 ambulatory Jaquan L Cristhian Facility:[id number] Start: 05-30-2023 End: 05-31-2023 Emergency department patient visit CAD APPLICATION SUPPORT SPECIALIST-C Jaquan Morrow Work Phone: [facility] Work Phone: Start: 05-30-2023 Telephone encounter Deacon shahid MD Work Phone: General Surgery Start: 05-28-2023 End: 05-28-2023 Refill Kasie Avalos MD Work Phone: Gastroenterology Comment on above: Refill Request Medication Problem Start: 05-25-2023 End: 05-28-2023 Evaluation and management of inpatient DEACON KAT Facility:[facility] Start: 05-24-2023 Telephone encounter Deacon shahid MD Work Phone: General Surgery Comment on above: Patient Education; C are Coordinator - Other Start: 05-24-2023 End: 05-26-2023 ambulatory Mateusz Garcia Facility:[id number] Start: 05-20-2023 End: 05-20-2023 Emergency department patient visit TIFFANIE KEITH Facility:[facility] Start: 05-19-2023 End: 05-19-2023 ambulatory Jaquan L Cristhian Facility:[facility] Afsaneh suarez Start: 05-18-2023 Telephone encounter Deacon shahid MD Work Phone: General Surgery Comment on above: Received Outside Med ical Records Start: 05-18-2023 End: 05-22-2023 Evaluation and management of inpatient JAQUAN L CRISTHIAN Facility:[facility] Start: 05-17-2023 End: 05-17-2023 ambulatory Deacon Kat MD Work Phone: General Surgery Comment on above: Nausea and vomiting, unspecified vomiting type (Primary Dx) Start: 05-17-2023 End: 05-17-2023 Telemedicine consultation with patient Deacon Kat MD Work Phone: [facility] Start: 05-17-2023 End: 05-17-2023 Emergency department patient visit Ashutosh Albright [facility] Start: 05-17-2023 End: 05-19-2023 ambulatory Jaquan L [facility] Facility::[id number] Start: 05-12-2023 End: 05-14-2023 ambulatory Moncho Trejo Facility:[facility] Start: 05-12-2023 End: 05-14-2023 Observation Moncho Trejo [facility] Start: 05-11-2023 End: 05-11-2023 Emergency department patient visit Mateusz Garcia [facility] Start: 05-10-2023 Telephone encounter Deacon shahid MD Work Phone: General Surgery Comment on above: Patient Question Start: 05-10-2023 End: 05-10-2023 ambulatory [facility] Facility:[facility] Afsaneh suarez Start: 05-09-2023 End: 05-09-2023 Emergency department patient visit Mateusz Garcia [facility] Start: 05-07-2023 Telephone encounter Santa Hart RN Ambulatory Surgery Comment on above: Appointment (Cancel EGD) Start: 05-06-2023 End: 05-06-2023 Emergency department patient visit Mateusz Garcia [facility] Start: 04-30-2023 End: 04-30-2023 ambulatory Jaquan L Cristhian Facility:[facility] Afsaneh suarez Start: 04-28-2023 End: 04-28-2023 ambulatory KASIE AVALOS Facility:[facility] Start: 04-28-2023 End: 04-28-2023 Patient encounter procedure Kasie Avalos MD Work Phone: Gastroenterology Comment on above: Gastroesophageal ref lux disease, unspecified whether esophagitis present (Primary Dx); Constipation, unspecified constipation type Start: 04-20-2023 End: 04-20-2023 Office outpatient visit 10 minutes Sherry Magaña MD Work Phone: [facility] Comment on above: Median arcuate ligam ent syndrome (CMS/HCC) (Primary Dx) Start: 04-20-2023 End: [facility] Start: 04-07-2023 End: 04-07-2023 Postop follow up visit related to original px Sherry Magaña MD Work Phone: [facility] Comment on above: Median arcuate ligam ent syndrome (CMS/HCC) (Primary Dx) Start: 04-07-2023 End: 04-07-2023 ambulatory [facility] Start: 04-07-2023 End: 04-07-2023 Admission to same day surgery center Deacon Kat MD Work Phone: Endocrinology BMI Comment on above: Bariatric surgery st atus (Primary Dx); Dietary zinc deficiency; Vitamin D deficiency Start: 04-07-2023 End: 04-07-2023 ambulatory Deacon Kat Facility:[facility] Start: 04-07-2023 End: 04-07-2023 Telemedicine consultation with patient Deacon Kat MD Work Phone: [facility] Start: 04-06-2023 End: 04-06-2023 Emergency department patient visit CAD APPLICATION SUPPORT SPECIALIST-Elroy Morrow Work Phone: [facility] Work Phone: Start: 04-02-2023 End: 04-02-2023 Emergency department patient visit Ashutosh Albright [facility] Start: 03-24-2023 End: 03-24-2023 ambulatory Jaquan Morrow [facility] Start: 03-16-2023 End: 03-20-2023 Evaluation and management of inpatient Melisa Barker MD Work Phone: [facility] Comment on above: Abdominal pain (Prim reji Dx); Nausea and vomiting, unspecified vomiting type; History of gastric bypass; Median arcuate ligament syndrome (CMS/HCC) Start: 03-16-2023 End: 03-16-2023 Emergency department patient visit Earnest Jett [facility] Start: 03-15-2023 End: 03-15-2023 Emergency department patient visit Earnest Jett [facility] Start: 03-05-2023 End: 03-10-2023 Evaluation and management of inpatient Sherry Magaña MD Work Phone: [facility] Comment on above: Median arcuate ligam ent syndrome (CMS/HCC) (Primary Dx) Start: 03-02-2023 End: 03-03-2023 ambulatory NO ASSIGNED PCP GENERIC PROVIDER [facility] Start: 03-02-2023 End: 03-02-2023 ambulatory NO ASSIGNED PCP GENERIC PROVIDER [facility] Start: 03-02-2023 End: 03-02-2023 Encounter for other preprocedural examination NO ASSIGNED PCP GENERIC PROVIDER [facility] Start: 02-13-2023 End: 02-13-2023 Emergency department patient visit PAO Morrow Work Phone: [facility] Work Phone: Start: 02-12-2023 End: 02-12-2023 Emergency department patient visit NO ASSIGNED PCP GENERIC PROVIDER [facility] Start: 02-10-2023 End: 02-10-2023 ambulatory JAQUAN L CRISTHIAN Facility:[facility] Start: 02-03-2023 End: 02-03-2023 ambulatory Jaquan L Cristhian Facility:[facility] [place] Start: 01-15-2023 Telephone encounter Deacon shahid MD Work Phone: Endocrinology BMI Comment on above: Patient Question; Pa tient Update Start: 01-14-2023 End: 01-14-2023 ambulatory Vic Ramos MD Work Phone: Pain Management Comment on above: Waitlist Start: 01-13-2023 End: 01-13-2023 Emergency department patient visit NO ASSIGNED PCP GENERIC PROVIDER [facility] Start: 01-11-2023 Orders Only Vic Conner am, [...] with patient Vic Ramos MD Work Phone: [facility] Start: 01-06-2023 Telephone encounter Vic saldana MD Work Phone: Pain Management Comment on above: Appointment Start: 12-31-2022 End: 12-31-2022 Emergency department patient visit Mateusz Garcia [facility] Start: 12-29-2022 End: 12-29-2022 ambulatory Jaquanpo Reyesab Facility:[facility] Start: 12-28-2022 Telephone encounter Deacon shahid MD Work Phone: General Surgery Comment on above: Patient Update; Orde rs Start: 12-21-2022 End: 12-21-2022 ambulatory WOOSUP M PARK [facility] Start: 12-14-2022 End: 12-14-2022 ambulatory Deacon Kat MD Work Phone: Endocrinology BMI Comment on above: Worsening Symptoms S evere Abdominal pain, unsp ecified abdominal location (Primary Dx) Start: 12-14-2022 End: 12-15-2022 Emergency department patient visit JAQUAN [facility] Start: 12-14-2022 End: 12-14-2022 Telemedicine consultation with patient Deacon Kat MD Work Phone: ANGELA Graf [facility] Start: 12-09-2022 ambulatory Jaquan L Cristhian Facility: [facility] Start: 12-06-2022 End: 12-09-2022 Evaluation and management of inpatient SHANNA WOODS Facility:[facility] Start: 12-04-2022 End: 12-04-2022 Patient encounter procedure Agustin Zamorano MD Work Phone: General Surgery Comment on above: Generalized abdomina l pain (Primary Dx) Start: 12-04-2022 End: 12-04-2022 ambulatory AGUSTIN ZAMORANO Facility:[facility] Start: 12-03-2022 Telephone encounter Oliva Dobbs RN General Surgery Start: 12-01-2022 Telephone encounter Deacon shahid MD Work Phone: Endocrinology BMI Comment on above: Patient Update Start: 12-01-2022 End: 12-01-2022 ambulatory Lokesh Terry Facility:[facility] [place] Start: 11-27-2022 End: 12-03-2022 Evaluation and management of inpatient CAMDEN Ahumada MICHAEL [facility] Start: 11-26-2022 ambulatory DEACON KAT Facilit y:[facility] Start: 11-26-2022 End: 11-26-2022 Subsequent hospital visit by physician Jing/ [facility] Work Phone: CARDIOVASCULAR TESTING Comment on above: Chronic nausea [R11. 0] Start: 11-26-2022 End: 11-26-2022 ambulatory JAQUAN L CRISTHIAN Facility:[facility] Start: 11-25-2022 Telephone encounter [facility] [place] Work Phone: Chronic Care Start: 11-25-2022 End: 11-25-2022 ambulatory Jaquan L Cristhian Facility:[facility] [place] Start: 11-23-2022 Telephone encounter Daecon shahid MD Work Phone: Endocrinology BMI Comment [...] 11-16-2022 Lab Drop off Jaquan L Cristhian [facility] Start: 11-14-2022 ambulatory Deacon sousa MD Work Phone: [facility] Start: 11-14-2022 Nutrition therapy Deacon turner MD Work Phone: Endocrinology BMI Comment on above: IV Nutrition Start: 11-13-2022 End: 11-13-2022 ambulatory PABLO HEADLEYLAND Facility:[facility] Start: 11-11-2022 End: 11-12-2022 ambulatory DEACON KAT Facility:[facility] Start: 11-10-2022 End: 11-10-2022 ambulatory JAQUAN L CRISTHIAN Facility:[facility] Start: 11-09-2022 Telephone encounter Deacon shahid MD Work Phone: Endocrinology BMI Comment on above: Surgery Rescheduled Start: 11-06-2022 ambulatory Agustin Sheets RT(R) [facility] Radiology Molecular Comment on above: Radiology NM Start: 11-06-2022 Patient encounter procedure Agustin Sheets RT(R) [facility] Start: 11-06-2022 Telephone encounter Deacon shahid MD Work Phone: Endocrinology BMI Comment on above: Patient Update Start: 11-05-2022 End: 11-08-2022 ambulatory JAQUAN L CRISTHIAN Facility:[facility] Start: 11-04-2022 End: 11-04-2022 Patient encounter procedure Deacon Kat MD Work Phone: Endocrinology BMI Comment on above: Nausea (Primary Dx); RUQ pain; History of cholecystectomy Dehydration (Primary Dx); RUQ pain Right knee pain, uns pecified chronicity (Primary Dx) Start: 11-04-2022 End: 11-04-2022 ambulatory Rheu Chair 5 Jeanne Work Phone: Infusion Start: 11-04-2022 ambulatory JAQUAN L CRISTHIAN Facility: [facility] Start: 11-04-2022 End: 11-04-2022 Subsequent hospital visit by physician [facility] Work Phone: [facility] Radiology Ultrasound Comment on above: Nausea [R11.0] Start: 11-04-2022 End: 11-04-2022 ambulatory Deacon Kat Facility:[facility] Start: 11-03-2022 End: 11-03-2022 ambulatory Jaquan L Cristhian Facility:[facility] Afsaneh suarez Start: 11-02-2022 Refill Haroon ahumada APRN.MINI SHIFTER Work Phone: Neurology Start: 11-02-2022 End: 11-02-2022 Emergency department patient visit DIMITRI WALKER [facility] Start: 11-02-2022 End: 11-02-2022 Emergency department patient visit Dimitri Walker MD Work Phone: [facility]3] Emergency Department Start: 11-01-2022 ambulatory Deacon sousa MD Work Phone: Endocrinology BMI Comment on above: Worsening Symptoms Problem Start: 10-31-2022 Refill Breanna Stern APRN.MINI SHIFTER Work Phone: General Surgery Comment on above: Refill Request Start: 10-31-2022 End: 10-31-2022 Emergency department patient visit WALLY Lesia FOLEY [facility] Start: 10-31-2022 End: 10-31-2022 Emergency department patient visit Jalyn Suresh DO Work Phone: [facility] ED Comment on above: Back strain, initial encounter (Primary Dx) Start: 10-29-2022 End: 11-30-2022 ambulatory Jaquan L Cristhian Facility:[id number] Start: 10-27-2022 End: 10-27-2022 ambulatory JAQUAN L CRISTHIAN Facility:[facility] Start: 10-26-2022 End: 10-26-2022 ambulatory Jaquan L Cristhian Facility:[facility] Start: 10-25-2022 End: 10-28-2022 ambulatory RAYNA BILLINGSLEY Facility:[facility] Start: 10-24-2022 ambulatory Deacon sousa MD Work Phone: Endocrinology BMI Comment on above: Symptoms Start: 10-23-2022 End: 10-23-2022 Emergency department patient visit WALLY Graf [facility] Start: 10-21-2022 End: 10-21-2022 ambulatory Jaquan L Cristhian Facility:[facility] Start: 10-21-2022 End: 10-21-2022 Emergency department patient visit [facility] Facility:[facility] Start: 10-20-2022 Telephone encounter Deacon shahid MD Work Phone: General Surgery Comment on above: Patient Question; Na usea & Vomiting Start: 10-20-2022 End: 10-20-2022 Emergency department patient visit Earnest Jett [facility] Start: 10-19-2022 ambulatory Breanna Merlin ANDREWS Work Phone: General Surgery Comment on above: Worsening Symptoms Start: 10-19-2022 End: 10-19-2022 Emergency department patient visit Earnest Jett [facility] Start: 10-18-2022 Emergency department patient visit [facility] Facility:[facility] Start: 10-17-2022 End: 10-17-2022 Emergency department patient visit [place] Lesia [facility] Start: 10-15-2022 Refill Kasie Avalos MD Work Phone: Gastroenterology Comment on above: Refill Request Start: 10-07-2022 End: 10-07-2022 ambulatory Jaquan L Cristhian [facility] Start: 10-05-2022 End: 10-05-2022 Distance [facility] Pablo Lebron PSYD Work Phone: [...] Xiomara Terrymichael GARLAND Work Phone: [facility] SUM[facility]ERS [facility] Start: 09-22-2022 End: 09-22-2022 ambulatory JAQUAN MORROW Facility:[facility] Start: 09-21-2022 End: 09-21-2022 [facility] Pablo Lebron PSYD Work Phone: Neurology Comment on above: ARSALAN (generalized anx iety disorder) (Primary Dx); Panic disorder without agoraphobia; Moderate recurrent major depression (HCC) Start: 09-18-2022 End: 09-18-2022 ambulatory BREANNA STERN Facility:[facility] Start: 09-18-2022 End: 09-18-2022 Patient encounter procedure [...] encounter procedure Rajni Rouse [facility] Start: 07-28-2022 End: 07-28-2022 Patient encounter procedure [...] End: 07-20-2022 Lab Drop off Jaquan Morrow [facility] Start: 06-18-2022 End: 06-18-2022 ambulatory Aliyah Washburn PA-C Work Phone: [facility] Comment on above: Encounter to discuss test results (Primary Dx); NO SHOW Start: 06-18-2022 End: 06-18-2022 Telemedicine consultation with patient Aliyah Washburn PA-C Work Phone: [facility] Start: 06-12-2022 End: 06-12-2022 Patient encounter procedure Aliyah Washburn PA-C Work Phone: [facility] Comment on above: Polyarthralgia (Prim reji Dx); Malaise and fatigue; Subjective fever; S/P laparoscopic sleeve gastrectomy; History of syncope; History of adrenal insufficiency; Hypothyroidism, unspecified type Start: 06-11-2022 End: 07-24-2022 Pre-admission assessment Rui C Anya [facility] Start: 06-10-2022 End: 06-10-2022 Emergency department patient visit Ashutosh Albright [facility] Start: 06-09-2022 End: 06-09-[address] DOCTOR CARRERA Facility:[facility] Start: 05-22-2022 End: 05-23-[address] WALLY FOLEY . Facility:[facility] Start: 03-30-2022 ambulatory Breanna Shaikhcecilia RYANMINI SHIFTER Work Phone: [facility] Start: 03-30-2022 Patient encounter procedure Breanna Stern APRDanielleMINI SHIFTER Work Phone: General Surgery Comment on above: Cancel Appointment C annot Reach Anyone Start: 03-06-2022 End: 03-06-2022 Subsequent hospital visit by physician Deacon Kat MD Work Phone: [facility] Endoscopy - ENDO Comment on above: Esophageal dysphagia [R13.19] Start: 03-05-2022 Telephone encounter Li márquez RN Work Phone: Endocrinology BMI Comment on above: EGD Instructions Start: 03-05-2022 End: 03-05-2022 ambulatory Breanna Stern MINI SHIFTER Work Phone: General Surgery Comment on above: Esophageal dysphagia (Primary Dx); S/P gastric bypass; Postoperative malabsorption Start: 03-05-2022 End: 03-05-2022 Telemedicine consultation with patient Breanna Stern APRDanielleMINI SHIFTER Work Phone: [facility] Start: 03-02-2022 End: 03-03-[address] WALLY FOLEY . Facility:[facility] Start: 02-17-2022 End: 02-18-[address] WALLY FOLEY . Facility:[facility] Start: 02-13-2022 End: 02-13-2022 Patient encounter procedure Kuldip Yousif MD Work Phone: [employer] [facility] Comment on above: Acetabular labrum te ar, right, subsequent encounter (Primary Dx) Start: 02-05-2022 Orders Only Deacon sousa MD Work Phone: Endocrinology BMI Comment on above: Postoperative pain Start: 02-04-2022 ambulatory Deacon sousa MD Work Phone: ANGELA Graf MELINA [facility] Start: 02-04-2022 Follow-up encounter Deacon shahid MD Work Phone: Endocrinology BMI Comment on above: Surgery Follow-Up Start: 02-04-2022 End: 02-04-2022 Admission to same day surgery center Nahed Tamez RD Work Phone: Nutrition Therapy Comment on above: S/P gastric surgery (Primary Dx); Dietary counseling Start: 02-04-2022 End: 02-04-2022 Telemedicine consultation with patient Nahed Tamez RD Work Phone: [facility] Start: 02-03-2022 End: 02-03-2022 Patient encounter procedure Breanna Stern COAL CUTTER.MINI SHIFTER Work Phone: General Surgery Comment on above: S/P bariatric surger y (Primary Dx); Postoperative pain; Primary osteoarthritis involving multiple joints Start: 02-02-2022 Telephone encounter Deacon shahid MD Work Phone: General Surgery Comment on above: Medication Question Start: 01-31-2022 ambulatory Deacon sousa MD Work Phone: Endocrinology BMI Comment on above: Home prescription qu estion Start: 01-28-2022 End: 01-28-2022 [facility] Work Phone: [facility] Start: 01-28-2022 End: 01-28-2022 ambulatory [facility] Work Phone: Pre Anesthesia Comment on [...] p. GJ revision) Start: 01-02-2022 End: 01-02-2022 [facility] Sabina Joy APRN.MINI SHIFTER Work Phone: General Surgery Comment on above: [...] Kat Start: 11-18-2021 Patient Update Breanna Stern COAL CUTTER.MINI SHIFTER Work Phone: Endocrinology BMI Comment on above: Orders (pH Impedence ) Start: 11-17-2021 End: 11-17-2021 Telemedicine consultation with patient Deacon Kat MD Work Phone: [facility] Start: 11-17-2021 End: 11-17-2021 ambulatory Deacon Kat MD Work Phone: Endocrinology BMI Comment on above: Gastroesophageal ref lux disease without esophagitis (Primary Dx) Refill Request; Refi ll Request Start: 10-27-2021 End: 10-28-[address] WALLY FOLEY . Facility:[facility] Start: 10-21-2021 Telephone encounter Kuldip mckeon MD Work Phone: [facility] [place] Comment on above: Appointment Start: 10-09-2021 End: 10-09-2021 [facility] Sabina Joy COAL CUTTER.MINI SHIFTER Work Phone: General Surgery Comment on above: Gastroesophageal ref lux disease, unspecified whether esophagitis present (Primary Dx); Bariatric surgery status; Weight disorder; Class 1 obesity with serious comorbidity and body mass index (BMI) of 31.0 to 31.9 in adult, unspecified obesity type; S/P laparoscopic sleeve gastrectomy; Dietary counseling and surveillance Start: 10-08-2021 ambulatory Kuldip Yousif MD Work Phone: [facility] Start: 10-08-2021 Patient encounter procedure Kuldip Yousif MD Work Phone: IM5 Comment on above: Appointment Time Tod ay Start: 10-04-2021 End: 10-05-[address] WALLY FOLEY . Facility:[facility] Start: 08-30-2021 End: 08-30-2021 Emergency department patient visit Pablo Atwood DO Work Phone: [facility] ED Comment on above: Dental infection (Pr imary Dx) Start: 08-29-2021 End: 08-29-2021 ambulatory Justine Johnson Mele PA-C Work Phone: [facility] Comment on above: Tear of right acetab ular labrum, subsequent encounter (Primary Dx) Start: 08-29-2021 End: 08-29-2021 Telemedicine consultation with patient Justine Johnson Mele PA-C Work Phone: [facility] [address] Start: 08-28-2021 Refill Justine Johnson Nicki ardon PA-C Work Phone: [facility] Comment on above: Refill Request Start: 08-28-2021 End: 08-28-2021 ambulatory Xiomara Terrymichael GARLAND Work Phone: General Surgery Comment on above: S/P laparoscopic sle dee dee gastrectomy (Primary Dx); Obesity, Class I, BMI 30-34.9; Dietary counseling and surveillance Start: 08-28-2021 End: 08-28-2021 Telemedicine consultation with patient Xiomara Martinez RD Work Phone: [facility] Start: 08-25-2021 Encounter for genera l adult medical examination without abnormal findings SHANNA JUNE [facility] Start: 08-24-2021 ambulatory Deacon sousa MD Work Phone: Endocrinology BMI Comment on above: Possible Revision Di scussion Start: 08-22-2021 End: 08-22-2021 Refill Kasie Avalos MD Work Phone: Gastroenterology Comment on above: Refill Request Start: 08-22-2021 Telephone encounter Shanna hooks [facility] Start: 08-21-2021 End: 08-22-2021 Encounter for general adult medical examination without abnormal findings DR WALLY FOLEY . Facility:[facility] Start: 08-21-2021 End: 08-22-[address] WALLY FOLEY . Facility:[facility] Start: 08-19-2021 End: 08-20-[address] WALLY FOLEY . Facility:[facility] Start: 08-17-2021 End: 08-17-2021 ambulatory Shanna June [facility] Other Start: 08-17-2021 Office outpatient vi sit 15 minutes Shanna June [facility] Start: 08-14-2021 Refill Justine Caceres ac PA-C Work Phone: [facility] Comment on above: Refill Request Start: 08-01-2021 End: 08-01-2021 ambulatory Justine Alex Elizabethc PA-C Work Phone: [facility] Comment on above: Tear of right acetab ular labrum, subsequent encounter (Primary Dx) Start: 08-01-2021 End: 08-01-2021 Telemedicine consultation with patient Justine Johnson Elizabethc PA-C Work Phone: [facility] [address] Start: 07-30-2021 End: 07-30-[address] MARCOS MORENO . Facility:[facility] Start: 07-28-2021 ambulatory Justinerodolfo Caceres ac PA-C Work Phone: [facility] [address] Start: 07-28-2021 Patient encounter procedure Justine Shabazz PA-C Work Phone: [facility] Comment on above: Virtual Appointment Start: 07-27-2021 End: 07-27-2021 Emergency department patient visit Angela Do MD Work Phone: [facility] ED Comment on above: Generalized abdomina l pain (Primary Dx) Start: 07-14-2021 ambulatory Justine Caceres ac PA-C Work Phone: [facility] Comment on above: Medication Start: 07-11-2021 End: 08-26-[address] DOCTOR CARRERA Facility:[facility] Start: 07-04-2021 End: 07-04-2021 ambulatory Justine Serranodaniel INMAN-C Work Phone: [facility] Comment on above: Tear of right acetab ular labrum, subsequent encounter (Primary Dx) Start: 07-04-2021 End: 07-04-2021 Telemedicine consultation with patient Justine Johnson Mele INMAN-C Work Phone: [facility] [address] Start: 06-23-2021 [facility] Jace Duarte AT Work Phone: [facility] Comment on above: Schedule Surgery Start: 06-23-2021 ambulatory Jace aLra ck AT Work Phone: [facility] [address] Start: 06-18-2021 End: 06-18-2021 Patient encounter procedure Kuldip Yousif MD Work Phone: [facility] Comment on above: Acetabular labrum te ar, right, initial encounter (Primary Dx) Start: 06-02-2021 ambulatory LUCIE MORA Facmichael lity:[facility] Start: 06-02-2021 End: 06-02-2021 Office outpatient visit 15 minutes Lucie Mora MD Work Phone: [facility] Comment on above: 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) Start: 04-02-2021 End: 04-02-2021 ambulatory Shanna June [facility] Other Start: 04-02-2021 Telephone encounter Shanna hooks [facility] Start: 03-31-2021 End: 03-31-2021 ambulatory Shanna June [facility] Other Start: 03-31-2021 Office outpatient vi sit 15 minutes Shanna June [facility] Start: 03-10-2021 End: 03-10-2021 ambulatory Shanna June [facility] Other Start: 03-10-2021 Telephone encounter Shanna hooks [facility] Signaling Project Engineer Start: 01-28-2021 End: 01-28-2021 ambulatory Shanna June [facility] Other Start: 01-28-2021 Office outpatient vi sit 15 minutes Shanna June [facility] Start: 12-17-2020 End: 12-17-2020 ambulatory Shanna June [facility] Other Start: 12-17-2020 Encounter for genera l adult medical examination without abnormal findings Shanna June [facility] Start: 12-17-2020 Periodic preventive med est patient 18-39 yrs Shanna June [facility] Start: 12-14-2020 End: 12-14-2020 Emergency department patient visit Shanna June COAL CUTTER - CAD APPLICATION SUPPORT SPECIALIST Work Phone: [facility] ED Comment on above: Contusion of right t humb without damage to nail, initial encounter (Primary Dx) Start: 12-09-2020 ambulatory LCUIE Foster lity:[facility] Start: 07-02-2020 End: 07-02-2020 Emergency department patient visit Vaughn Ceja MD Work Phone: [facility]3] Emergency Department Start: 01-30-2020 End: 01-30-2020 Emergency department patient visit Agustin Gustafson Work Phone: [facility]3] Emergency Department Start: 09-25-2019 End: 08-04-2023 Preprocedural examination done Kuldip Yousif MD Work Phone: [facility] Work Phone: Start: 09-10-2017 End: 09-11-2017 Patient encounter DEFAULT PHYSICIAN Facility:[facility] Procedures Date Procedure Procedure Detail Performing Clinician Start: 08-14-2023 Computed tomography of abdomen and pelvis with contrast PAO Morrow Work Phone: Start: 07-31-2023 Computed tomography of abdomen and pelvis with contrast CAD APPLICATION SUPPORT SPECIALISTYohana Morrow Work Phone: Start: 07-16-2023 Computed tomography of abdomen and pelvis with contrast CAD APPLICATION SUPPORT SPECIALISTYohana Morrow Work Phone: Start: 07-15-2023 Follow-up visit [...] 07-02-2023 Glucose [Mass/volume] in Serum or Plasma WONSH [employer] G[facility]MEZ Start: 07-02-2023 Glucose quantitative blood xcpt reagent strip Kina Ann MD Work Phone: Start: 07-02-2023 Glucose [Mass/volume] in Serum or Plasma W[facility] [employer] [facility] Start: 07-02-2023 DIET TUBE FEEDING WITH TRAY SHERRY MAGAÑA Start: 07-02-2023 Glucose quantitative blood xcpt reagent strip Kina Ann MD Work Phone: Start: 07-02-2023 Glucose [Mass/volume] in Serum or Plasma GABRIELLAWipebookBAHMAN MAGAÑA Start: 07-02-2023 Glucose quantitative blood xcpt reagent strip Kina Ann MD Work Phone: Start: 07-02-2023 DO NOT REMOVE URINARY CATHETER WITHOUT PROVIDER ORDER WON[facility] [employer] [facility] Start: 07-02-2023 Glucose [Mass/volume] in Serum or Plasma W[facility] [employer] [facility] Start: 07-02-2023 CBC panel - Blood by Automated count [facility] [employer] [facility] Start: 07-02-2023 RENAL FUNCTION [facility]EL [facility] Start: 07-02-2023 Glucose quantitative blood xcpt reagent strip Dolores Cox MD Work Phone: Start: 07-02-2023 Renal function panel Dolores Cox MD Work Phone: Start: 07-02-2023 Glucose [Mass/volume] in Serum or Plasma [facility] Start: 07-01-2023 Glucose quantitative blood xcpt reagent strip Dolores Cox MD Work Phone: Start: 07-01-2023 Glucose [Mass/volume] in Serum or Plasma [facility] Start: 07-01-2023 Glucose quantitative blood xcpt reagent strip Dolores Cox MD Work Phone: Start: 07-01-2023 Glucose [Mass/volume] in Serum or Plasma [facility] Start: 07-01-2023 Glucose quantitative blood xcpt reagent strip Dolores Cox MD Work Phone: Start: 07-01-2023 XR CHEST 1 VIEW [facility] G[facility]MEZ Start: 07-01-2023 Glucose [Mass/volume] in Serum or Plasma [facility] Start: 07-01-2023 Glucose [Mass/volume] in Serum or Plasma [facility] [employer] [facility] Start: 07-01-2023 Radiologic exam chest single view Yajairam aamir Cox MD Work Phone: Start: 07-01-2023 Glucose quantitative blood xcpt reagent strip Dolores Cox MD Work Phone: Start: 07-01-2023 Glucose quantitative blood xcpt reagent strip Dolores Cox MD Work Phone: Start: 07-01-2023 Glucose [Mass/volume] in Serum or Plasma [employer] G[facility]ME[facility] Start: 07-01-2023 Glucose quantitative blood xcpt reagent strip Dolores Cox MD Work Phone: Start: 07-01-2023 CBC panel - Blood by Automated count [facility] Start: 07-01-2023 Magnesium [Mass/volume] in Serum or Plasma [facility] Start: 07-01-2023 RENAL FUNCTION PANEL [facility] Start: 07-01-2023 Renal function panel Dolores Cox MD Work Phone: Start: 07-01-2023 BATH/SHOWER WITH CHLORHEXIDINE GLUCONATE [facility] Start: 06-30-2023 Glucose [Mass/volume] in Serum or Plasma [facility] Start: 06-30-2023 Glucose quantitative blood xcpt reagent strip Dolores Cox MD Work Phone: Start: 06-30-2023 MAY PARTICIPATE IN ROOM SERVICE [facility] ARK Start: 06-30-2023 IP CONSULT TO [facility]ARE [facility] Start: 06-30-2023 IP CONSULT TO NUTRITION SERVICES [facility] Start: 06-30-2023 IP CONSULT [facility]IAL WORK [facility] Start: 06-30-2023 IP CONSULT TO RESPIRATORY CARE [facility] PA RK Start: 06-30-2023 NOTIFY PROVIDER (DO NOT PROMPT FOR PARAMETERS) [facility] Start: 06-30-2023 NURSING COMMUNICATION [facility] Start: 06-30-2023 PULSE OXIMETRY, CONTINUOUS [facility] Start: 06-30-2023 ECG 12-LEAD [facility] Start: 06-30-2023 STAPHYLOCOCCUS AUREUS/MRSA COLONIZATION, CULTURE [facility] Start: 06-30-2023 Glucose [Mass/volume] in Serum or Plasma [facility] Start: 06-30-2023 CT ANGIO ABDOMEN PELVIS W AND/OR WO IV IV CONTRAST [facility] Start: 06-30-2023 VASC US MESENTERIC ARTERY DUPLEX COMPLETE [facility] Start: 06-30-2023 Glucose quantitative blood xcpt reagent strip Baldomero Woodard MD Work Phone: Start: 06-30-2023 Ct angio abd&plvis cntrst mtrl w/wo cntrst img Tiffanie Mendez COAL CUTTER-MINI SHIFTER Work Phone: Start: 06-30-2023 Dup-scan artl tiara abdl/pel/scrot&/rpr orgn com Jamil Gavin MD Work Phone: Start: 06-30-2023 CBC panel - Blood by Automated count [facility] Start: 06-30-2023 Comprehensive metabolic 2000 panel - Serum or Plasma [facility] Start: 06-30-2023 Magnesium [Mass/volume] in Serum or Plasma [facility] Start: 06-30-2023 Phosphate [Mass/volume] in Serum or Plasma [facility] Start: 06-30-2023 Comprehensive metabolic panel Baldomero serrano MD Work Phone: Start: 06-30-2023 IP CONSULT TO VASCULAR SURGERY [facility]ST[facility] Start: 06-30-2023 CENTRAL VENOUS LINE CAP CHANGE - ADULTS [facility] Start: 06-30-2023 CENTRAL VENOUS LINE DRESSING CHANGE - ADULT [facility] Start: 06-30-2023 CENTRAL VENOUS LINE TUBING CHANGE - ADULTS [facility] Start: 06-30-2023 IP CONSULT TO ACUTE CARE SURGERY [facility] Start: 06-30-2023 GASTRIC TUBE CARE [facility] Start: 06-30-2023 NOTIFY PROVIDER (PROMPT FOR PARAMETERS) [facility] Start: 06-30-2023 NURSING COMMUNICATION [facility] Start: 06-30-2023 NURSING COMMUNICATION - DO NOT USE IN ORDER SETS [facility] Start: 06-30-2023 POCT GLUCOSE METER [facility] Start: 06-30-2023 EXTRA URINE [place] TUBE [facility] Start: 06-30-2023 HCG, URINE, QUALITATIVE [facility] Start: 06-30-2023 URINALYSIS WITH REFLEX CULTURE AND MICROSCOPIC [facility] Start: 06-30-2023 ADMIT TO INPATIENT [facility] Start: 06-30-2023 ED TO FLOOR BED REQUEST [facility] Start: 06-30-2023 EXTRA URINE [place] TUBE David Dykes Rory DO Work Phone: Start: 06-30-2023 Urinalysis complete W Reflex Culture panel - Urine David Jania Rory DO Work Phone: Start: 06-30-2023 Urnls dip stick/tablet rgnt auto w/o microscopy David Valadez DO Work Phone: Start: 06-30-2023 CT ABDOMEN PELVIS WO IV CONTRAST [facility] [facility] Start: 06-29-2023 Ct abdomen & pelvis w/o contrast material David Valadez DO Work Phone: Start: 06-29-2023 Basic metabolic 2000 panel - Serum or [facility] [employer] ([employer]) Start: 06-29-2023 CBC panel - Blood by Automated count [facility] Start: 06-29-2023 Glucose [Mass/volume] in Serum or Plasma [facility] Start: 06-29-2023 CBC W Auto Differential panel - Blood [facility] [employer] ([employer]R) Start: 06-29-2023 Comprehensive metabolic 2000 panel - Serum or Plasma [facility] [employer] ([employer]) Start: 06-29-2023 Comprehensive metabolic panel David rowland DO Work Phone: Start: 06-29-2023 Ecg routine ecg w/least 12 lds trcg only w/o i&r David Valadez DO Work Phone: Start: 06-29-2023 End: 06-29-2023 Comprehensive metabolic panel David rowland DO Work Phone: Start: 06-18-2023 Electrocardiogram JAQUAN CRISTHIAN Start: 05-30-2023 Computed tomography of abdomen and pelvis with contrast CAD APPLICATION SUPPORT SPECIALIST-C Jaquan Cristhian Work Phone: Start: 05-30-2023 Urine culture CAD APPLICATION SUPPORT SPECIALIST-C Jaquan Cristhian Work Phone: Start: 05-25-2023 Esophagoscp rig transoral hypopharynx crv eskristal Eliaseverette Rouse Start: 05-20-2023 Esophagoscp rig transoral hypopharynx crv esoph Rajni Lue Start: 05-12-2023 Esophagogastroduodenoscopy Moncho Paste r Start: 04-06-2023 Computed tomography of abdomen and pelvis with contrast CAD APPLICATION SUPPORT SPECIALIST-C Jaquan Cristhian Work Phone: Start: 03-20-2023 DISCHARGE PATIENT WOMERARY MAGAÑA Start: 03-19-2023 [facility]IENT [facility] Start: 03-19-2023 [facility] Start: 03-19-2023 [facility]Y [facility]AM [facility] Start: 03-19-2023 Egd transoral biopsy single/multiple Deepika Roy [employer] Work Phone: Start: 03-19-2023 CBC panel - Blood by Automated count [facility] [employer] ([employer]) Start: 03-19-2023 Comprehensive metabolic 2000 panel - Serum or Plasma [facility] Start: 03-19-2023 Comprehensive metabolic panel Tiffanie Cruz all [employer] Work Phone: Start: 03-18-2023 CBC panel - Blood by Automated count [facility] Start: 03-18-2023 Comprehensive metabolic 2000 panel - Serum or Plasma [facility] Start: 03-18-2023 Comprehensive metabolic panel Tiffanie Cruz all [employer] Work Phone: Start: 03-17-2023 XR CHEST 1 VIEW [facility] Start: 03-17-2023 Radiologic exam chest single view Tiffanie Mendez [employer] Work Phone: Start: 03-17-2023 FL UPPER GI W DOUBLE CONTRAST W SMALL BOWEL FOLLOW THROUGH [facility] Start: 03-17-2023 Radiologic exam upr gi trc double contrast study Tiffanie Mendez [employer] Work Phone: Start: 03-17-2023 XR CHEST 1 VIEW [facility] [employer] ([employer]) Start: 03-17-2023 Radiologic exam chest single view Tiffanie Mendez [employer] Work Phone: Start: 03-17-2023 CBC panel - Blood by Automated count [employer] Start: 03-17-2023 Comprehensive metabolic 2000 panel - Serum or Plasma [facility] Start: 03-17-2023 ECG 12-LEAD [facility] Start: 03-17-2023 Comprehensive metabolic panel Tiffanie Cruz all [employer] Work Phone: Start: 03-16-2023 CT ABDOMEN PELVIS W IV CONTRAST [facility] Jonh BRAY Start: 03-16-2023 Ct abdomen & pelvis w/contrast material Tiffanie Mendez [employer] Work Phone: Start: 03-16-2023 ED TO FLOOR BED REQUEST [facility] Start: 03-16-2023 PULSE OXIMETRY, CONTINUOUS [facility] Start: 03-16-2023 TELEMETRY MONITORING [facility] Start: 03-16-2023 MEASURE HEIGHT [facility] Start: 03-16-2023 ORTHOSTATIC BLOOD PRESSURE [facility] Start: 03-16-2023 [facility] Start: 03-16-2023 ADMIT TO INPATIENT [facility] Start: 03-16-2023 CBC W Auto Differential panel - Blood [facility] Start: 03-16-2023 Comprehensive metabolic 2000 panel - Serum or Plasma [facility] Start: 03-16-2023 SARS-COV-2 AND INFLUENZA A/B PCR [facility] Start: 03-16-2023 PULSE OXIMETRY, CONTINUOUS Tiffanie Mendez [employer] Work Phone: Start: 03-16-2023 Comprehensive metabolic panel Melisa lipscomb MD Work Phone: Start: 03-16-2023 Influenza virus A and B and SARS-CoV-2 (COVID-19) identified in Respiratory specimen by HANK with probe detection Melisa Barker MD Work Phone: Start: 03-10-2023 DISCHARGE PATIENT [facility] Start: 03-10-2023 DISCHARGE INSTRUCTIONS [facility] Start: 03-10-2023 Glucose [Mass/volume] in Serum or Plasma [facility] Start: 03-10-2023 Glucose quantitative blood xcpt reagent strip Dolores Cox MD Work Phone: Start: 03-10-2023 Glucose [Mass/volume] in Serum or Plasma [facility] Start: 03-10-2023 Glucose quantitative blood xcpt reagent strip Dolores Cox MD Work Phone: Start: 03-10-2023 Basic metabolic 2000 panel - Serum or Plasma [facility] Start: 03-10-2023 CBC panel - Blood by Automated count [facility] Start: 03-10-2023 Glucose [Mass/volume] in Serum or Plasma [facility] Start: 03-10-2023 End: 03-10-2023 Basic metabolic panel calcium total Alicia Toro [employer] Work Phone: Start: 03-10-2023 POCT GLUCOSE METER [facility] Start: 03-10-2023 Glucose [Mass/volume] in Serum or Plasma [facility] Start: 03-10-2023 Glucose quantitative blood xcpt reagent strip Dolores Cox MD Work Phone: Start: 03-09-2023 Glucose [Mass/volume] in Serum or Plasma [facility] Start: 03-09-2023 Glucose quantitative blood xcpt reagent strip Dolores Cox MD Work Phone: Start: 03-09-2023 Glucose [Mass/volume] in Serum or Plasma [facility] Start: 03-09-2023 Glucose quantitative blood xcpt reagent strip Dolores Cox MD Work Phone: Start: 03-09-2023 C. DIFFICILE, PCR [facility] Start: 03-09-2023 STOOL PATHOGEN PANEL, PCR [facility] Start: 03-09-2023 Glucose [Mass/volume] in Serum or Plasma [facility] Start: 03-09-2023 Iadna-dna/rna gi pthgn multiplex probe tq 6-11 Alicia Toro [employer] Work Phone: Start: 03-09-2023 Inf agent det nucleic acid clostridium amp probe Alicia Toro [employer]TER[employer] Work Phone: Start: 03-09-2023 IP CONSULT TO NUTRITION SERVICES [facility] Start: 03-09-2023 Glucose quantitative blood xcpt reagent strip Dolores Cox MD Work Phone: Start: 03-09-2023 Glucose [Mass/volume] in Serum or Plasma [facility] Start: 03-09-2023 ECG 12-LEAD [facility] Start: 03-09-2023 Basic metabolic 2000 panel - Serum or Plasma [facility] Start: 03-09-2023 CBC panel - Blood by Automated count [facility] Start: 03-09-2023 Glucose quantitative blood xcpt reagent strip Dolores Cox MD Work Phone: Start: 03-09-2023 Glucose [Mass/volume] in Serum or Plasma [facility] Start: 03-09-2023 Basic metabolic panel calcium total Alicia Toro [employer] Work Phone: Start: 03-09-2023 Glucose [Mass/volume] in Serum or Plasma [facility] Start: 03-09-2023 Glucose quantitative blood xcpt reagent strip Dolores Cox MD Work Phone: Start: 03-09-2023 Glucose quantitative blood xcpt reagent strip Dolores Cox MD Work Phone: Start: 03-09-2023 POCT GLUCOSE METER [facility] Start: 03-09-2023 Glucose [Mass/volume] in Serum or Plasma [facility] [employer] [facility] Start: 03-08-2023 Glucose quantitative blood xcpt reagent strip Dolores Cox MD Work Phone: Start: 03-08-2023 Glucose [Mass/volume] in Serum or Plasma [employer] GÓMEZ Start: 03-08-2023 Glucose quantitative blood xcpt reagent strip Dolores Cox MD Work Phone: Start: 03-08-2023 Glucose [Mass/volume] in Serum or Plasma [employer] [facility] Start: 03-08-2023 Glucose quantitative blood xcpt reagent strip Dolores Cox MD Work Phone: Start: 03-08-2023 ECG 12-LEAD [employer] [facility] Start: 03-08-2023 Glucose [Mass/volume] in Serum or Plasma [employer] [facility] Start: 03-08-2023 Glucose quantitative blood xcpt reagent strip Dolores Cox MD Work Phone: Start: 03-08-2023 Basic metabolic 2000 panel - Serum or Plasma [facility] Start: 03-08-2023 CBC panel - Blood by Automated count [facility] Start: 03-08-2023 Glucose [Mass/volume] in Serum or [facility] Start: 03-08-2023 End: 03-08-2023 Basic metabolic panel calcium total Chrissy Harris PA-C Work Phone: Start: 03-08-2023 INSERT URETHRAL CATHETER SHERRY MAGAÑA Start: 03-08-2023 POCT GLUCOSE METER SHERRY [facility] Start: 03-08-2023 Glucose [Mass/volume] in Serum or Plasma [facility] Start: 03-08-2023 Glucose quantitative blood xcpt reagent strip Karma Sharpe MD Work Phone: Start: 03-07-2023 Glucose [Mass/volume] in Serum or Plasma [facility] Start: 03-07-2023 Glucose quantitative blood xcpt reagent strip Karma Sharpe MD Work Phone: Start: 03-07-2023 Glucose [Mass/volume] in Serum or Plasma [facility] Start: 03-07-2023 Glucose quantitative blood xcpt reagent strip Karma Sharpe MD Work Phone: Start: 03-07-2023 Glucose [Mass/volume] in Serum or Plasma [facility] Start: 03-07-2023 Glucose quantitative blood xcpt reagent strip Karma Sharpe MD Work Phone: Start: 03-07-2023 Glucose [Mass/volume] in Serum or Plasma [facility] Start: 03-07-2023 Glucose quantitative blood xcpt reagent strip Karma Sharpe MD Work Phone: Start: 03-07-2023 Basic metabolic 2000 panel - Serum or Plasma [facility] Start: 03-07-2023 CBC panel - Blood by Automated count [facility] Start: 03-07-2023 Glucose [Mass/volume] in Serum or Plasma [facility] Start: 03-07-2023 Basic metabolic panel calcium total Chrissy Harris PA-C Work Phone: Start: 03-07-2023 RESPIRATORY CARE EVALUATION ONLY [facility] Start: 03-07-2023 Glucose quantitative blood xcpt reagent strip Karma Sharpe MD Work Phone: Start: 03-07-2023 POCT GLUCOSE METER [facility] Start: 03-07-2023 RESPIRATORY CARE EVALUATION ONLY Karma siegel MD Work Phone: Start: 03-07-2023 Glucose [Mass/volume] in Serum or Plasma [facility] Start: 03-06-2023 Glucose quantitative blood xcpt reagent strip Karma Sharpe MD Work Phone: Start: 03-06-2023 Glucose [Mass/volume] in Serum or Plasma [facility] Start: 03-06-2023 TELEMETRY MONITORING [facility] Start: 03-06-2023 Glucose quantitative blood xcpt reagent strip Karma Sharpe MD Work Phone: Start: 03-06-2023 TRANSFER PATIENT TO NEW UNIT [facility] Start: 03-06-2023 Glucose [Mass/volume] in Serum or Plasma [facility] Start: 03-06-2023 Glucose quantitative blood xcpt reagent strip Karma Sharpe MD Work Phone: Start: 03-06-2023 Glucose [Mass/volume] in Serum or Plasma [facility] Start: 03-06-2023 Glucose quantitative blood xcpt reagent strip Corie Head MD Work Phone: Start: 03-06-2023 Glucose [Mass/volume] in Serum or Plasma [facility] Start: 03-06-2023 XR CHEST 1 VIEW [facility] Start: 03-06-2023 Glucose quantitative blood xcpt reagent strip Corie Head MD Work Phone: Start: 03-06-2023 Radiologic exam chest single view Shona Foster [employer] Work Phone: Start: 03-06-2023 Basic metabolic 2000 panel - Serum or Plasma [facility] Start: 03-06-2023 CBC panel - Blood by Automated count [facility] Start: 03-06-2023 Magnesium [Mass/volume] in Serum or Plasma [facility] Start: 03-06-2023 Phosphate [Mass/volume] in Serum or Plasma [facility] Start: 03-06-2023 Glucose [Mass/volume] in Serum or Plasma [facility] Start: 03-06-2023 Basic metabolic panel calcium total Chrissywilliams Harris PA-C Work Phone: Start: 03-06-2023 Glucose quantitative blood xcpt reagent strip Corie Head MD Work Phone: Start: 03-06-2023 POCT GLUCOSE METER GABRIELLAWipebookBAHMAN [employer] ([employer]) Start: 03-06-2023 PT EVAL AND TREAT [facility] Start: 03-06-2023 Glucose [Mass/volume] in Serum or Plasma [facility] Start: 03-05-2023 Glucose quantitative blood xcpt reagent strip Corie Head MD Work Phone: Start: 03-05-2023 Glucose [Mass/volume] in Serum or [facility] Start: 03-05-2023 Glucose quantitative blood xcpt reagent strip Corie Head MD Work Phone: Start: 03-05-2023 Glucose [Mass/volume] in Serum or Plasma [facility] Start: 03-05-2023 Basic metabolic 2000 panel - Serum or Plasma [facility] Start: 03-05-2023 CBC panel - Blood by Automated count [facility] Start: 03-05-2023 Magnesium [Mass/volume] in Serum or Plasma [facility] Start: 03-05-2023 Phosphate [Mass/volume] in Serum or Plasma [facility] Start: 03-05-2023 XR CHEST 1 VIEW [facility] Start: 03-05-2023 POCT GLUCOSE METER WOMERARY MAGAÑA Start: 03-05-2023 MEASURE HEIGHT [facility] Start: 03-05-2023 WEIGH PATIENT Figaro SystemsANA [facility] Start: 03-05-2023 FULL CODE Figaro SystemsANA MARIA [employer]) Start: 03-05-2023 Glucose quantitative blood xcpt reagent strip Corie Head MD Work Phone: Start: 03-05-2023 ADMIT TO INPATIENT [facility] Start: 03-05-2023 TRANSFER PATIENT TO [...] PROVIDER Start: 03-02-2023 STAPHYLOCOCCUS AUREUS/MRSA COLONIZATION, CULTURE [facility] Start: 02-13-2023 Computed tomography of [...] CBC W Auto Differential panel - Blood [facility] Start: 01-13-2023 Comprehensive metabolic 2000 panel - Serum or [facility] Start: 11-26-2022 Dup-scan artl tiara abdl/pel/scrot&/rpr orgn com Deacon Kat MD Work Phone: Start: 11-11-2022 Antibody screen JAQUAN MORROW Comment on above: Order Comment: Specimen Type: BLOOD SPEC IMENOrdering Facility: [facility] Address: [address] [place], [place] [id number] Performed By: #### T SCR ####OSVALDO BLOOD BANKIA [id number] [address] Start: 11-11-2022 Ercp dx collection specimen [...] History of Tan-en-Y gastric bypass Breanna Stern [employer] Work Phone: Start: 03-06-2022 Esophagoscp rig transoral hypopharynx crv esoph Breanna Stern [employer] Work Phone: Start: 01-29-2022 Revision - value [...] Start: 12-14-2020 Radex fingr minimum 2 views Vciky Olmedo MD Work Phone: Start: 11-04-2020 Hysterectomy [...] abdomen & pelvis w/o contrast material Juanito aLird PA-C Work Phone: Start: 07-02-2020 Gonadotropin chorionic [...] of 2) Zoster Vaccines (1 of 2) [facility] Start: 09-21-2026 DTaP/Tdap/Td vaccine (2 - Td or Tdap) DTaP/Tdap/Td vaccine (2 - Td or Tdap) [facility] Start: 09-21-2026 DTaP/Tdap/Td Vaccines (2 - Td or Tdap) DTaP/Tdap/Td Vaccines (2 - Td or Tdap) [facility] Start: 09-21-2026 Tetanus vaccination [facility] Start: 09-21-2026 Urine microalbumin profile [facility] Start: 08-08-2024 BP Controlled (<130/80) BP Controlled (<130/80) [facility] Start: 07-02-2024 Diabetes mellitus screening Diabetes Screening [facility] Start: 04-27-2024 BP Controlled (<130/80) BP Controlled (<130/80) [facility] Start: 03-10-2024 Diabetes mellitus screening Diabetes Screening [facility] Start: 12-05-2023 BP Controlled (<130/80) BP Controlled (<130/80) [facility] Start: 11-27-2023 BP Controlled (<130/80) BP Controlled (<130/80) [facility] Start: 10-27-2023 Thyroid stimulating hormone measurement TSH Level [facility] Start: 10-13-2023 End: 10-13-2023 Patient encounter procedure 10/13/2023 1:00 PM EDT Office Visit Gastroenterology [address] [id number] Georgina Barkley MD [facility] [address] [place], [place] [id number] cgrt page [phone] Gastroenterology Comment on above: cgrt page [phone] Start: 10-13-2023 End: 10-13-2023 ambulatory 10/13/2023 12:00 PM EDT Education Gastroenterology [address] [address] Dietitian, Cgrt [address] [place] [address] cgrt page [phone] Gastroenterology Comment on above: cgrt page [phone] Start: 09-08-2023 End: 09-08-2023 Patient encounter procedure 09/08/2023 10:40 AM EDT Office Visit Gastroenterology [address] [address] Kasie Avalos MD [address] [place] [address] 3 month f/u Gastroenterology Comment on above: 3 month f/u Start: 09-03-2023 End: 09-03-2023 Patient encounter procedure 09/03/2023 12:45 PM EDT Office Visit Pulmonary Medicine [address] [place] [address] Alan Jurado MD [address] [place] [address] Follow-up of left lower lobe pneumonia Pulmonary Medicine Comment on above: Follow-up of left lower lobe pneumonia Start: 08-30-2023 End: 08-30-2023 Nursing evaluation of patient and report 08/30/2023 8:00 AM EDT Nurse Visit Gastroenterology [address] [address] Lab, Nurse Gi I [address] [place] [address] Gastroesophageal reflux disease, unspecified whether esophagitis present [K21.9] Gastroenterology Comment on above: Gastroesophageal reflux disease, unspeci fied whether esophagitis present [K21.9] Start: 08-26-2023 End: 08-26-2023 Nursing evaluation of patient and report 08/26/2023 3:00 PM EDT Nurse Visit Gastroenterology [address] [address] 2, Nurse Gi Lab [address] [place] [address] Gastroesophageal reflux disease, unspecified whether esophagitis present [K21.9] Gastroenterology Comment on above: Gastroesophageal reflux disease, unspeci fied whether esophagitis present [K21.9] Start: 08-26-2023 End: 08-26-2023 Patient encounter procedure 08/26/2023 3:00 PM EDT Appointment Gastroenterology [address] [place] [phone] [place] [address] [place] [address] Gastroesophageal reflux disease, unspecified whether esophagitis present [K21.9] Gastroenterology Comment on above: Gastroesophageal reflux disease, unspeci fied whether esophagitis present [K21.9] Start: 08-09-2023 End: 08-09-2023 Patient encounter procedure 08/09/2023 2:00 PM EDT Office Visit Pain Management [address] [facility] [address] [place], [place] [id number] Vic Ramos MD [address] [place] [address] [place] [address] follow up Pain Management Comment on above: follow up Start: 08-09-2023 End: 08-09-2023 Follow-up encounter 08/09/2023 9:00 AM EDT [facility] Neurology [address] [place] [address] [place] [address] [place] [address] follow up Neurology Comment on above: follow up Start: 08-04-2023 End: 08-04-2023 Patient encounter procedure 08/04/2023 9:00 AM EDT Office Visit Pain Management [address] [place] [address] Boogie Murguia MD [address] [place] [address] medication refill (ketamine) Pain Management Comment on above: medication refill (ketamine) Start: 07-28-2023 End: 07-28-2023 Patient encounter procedure 07/28/2023 10:00 AM EDT Office Visit Gastroenterology [address] [address] Kasie Avalos MD [address] [place], [place] [phone] 3 month f/u Gastroenterology Comment on above: 3 month f/u Start: 07-22-2023 End: 07-22-2023 Patient encounter procedure 07/22/2023 9:30 AM EDT Office Visit Colorectal Surgery [address] [address] [place], SLIM.MINI SHIFTER [address] [place] [address] Constipation, unspecified constipation type [K59.00] Colorectal Surgery Comment on above: Constipation, unspecified constipation t ype [K59.00] Start: 07-22-2023 End: 07-22-2023 Admission to same day surgery center 07/22/2023 9:00 AM EDT Procedure Colorectal Surgery [address] [address] [place], SLIM.MINI SHIFTER [address] [place] [address] Constipation, unspecified constipation type [K59.00] Colorectal Surgery Comment on above: Constipation, unspecified constipation t ype [K59.00] Start: 07-22-2023 End: 07-22-2023 Nursing evaluation of patient and report 07/22/2023 8:00 AM EDT Nurse Visit Gastroenterology [address] [address] Lab, Nurse Gi I [address] [place] [address] Gastroesophageal reflux disease, unspecified whether esophagitis present [K21.9] Gastroenterology Comment on above: Gastroesophageal reflux disease, unspeci fied whether esophagitis present [K21.9] Start: 07-20-2023 End: 07-20-2023 Professional / ancillary services management 07/20/2023 2:00 PM EDT Ancillary Procedure [facility] [address] [address] [phone] [facility] Start: 07-20-2023 End: 07-20-2023 Nursing evaluation of patient and report 07/20/2023 1:30 PM EDT Nurse Visit Gastroenterology [address] [address] Lab, Nurse Gi I [address] [place] [address] Gastroesophageal reflux disease, unspecified whether esophagitis present [K21.9] Gastroenterology Comment on above: Gastroesophageal reflux disease, unspeci fied whether esophagitis present [K21.9] Start: 07-20-2023 End: 07-20-2023 Patient encounter procedure Gastroenterology Comment on above: Gastroesophageal reflux disease, unspeci fied whether esophagitis present [K21.9] Start: 07-17-2023 [facility] Start: 07-17-2023 Referral to general surgeon [facility] Start: 07-17-2023 Hospital admission [facility] Start: 07-15-2023 End: 07-15-2023 Patient encounter procedure 07/15/2023 3:15 PM EDT Office Visit Pain Management [address] [place] [address] Vic Ramos MD [address] [place] [address] est Pain Management Comment on above: est Start: 07-15-2023 End: 07-15-2023 Patient encounter procedure 07/15/2023 7:30 AM EDT Office Visit Pain Management [address] [place] [address] May Ramey APRN.MINI SHIFTER [address] [facility] [address] [place] [address] Needs medication, unknown who can order Pain Management Comment on above: Needs medication, unknown who can order Start: 07-09-2023 End: 07-09-2023 Follow-up encounter 07/09/2023 9:00 AM EDT [facility] Neurology [address] [facility] [address] [place] [address] Pablo Lebron, [facility] [address] [place] [address] follow up Neurology Comment on above: follow up Start: 07-07-2023 End: 07-07-2023 Patient encounter procedure 07/07/2023 10:30 AM EDT Office Visit Colorectal Surgery [address] [address] Vonda Hercules PA-C [address] [place] [address] Constipation, unspecified constipation type [K59.00] Colorectal Surgery Comment on above: Constipation, unspecified constipation t ype [K59.00] Start: 07-07-2023 End: 07-07-2023 Admission to same day surgery center 07/07/2023 10:00 AM EDT Procedure Colorectal Surgery [address] [address] Vonda Hercules PA-C [address] [place], [place] [phone] Constipation, unspecified constipation type [K59.00] Colorectal Surgery Comment on above: Constipation, unspecified constipation t ype [K59.00] Start: 06-23-2023 End: 06-23-2023 Patient encounter procedure 06/23/2023 9:00 AM EDT Office Visit Plastic Surgery [address] [address] Juana Padilla APRN.MINI SHIFTER [address] [place] [address] CONSULT FOR SKIN REMOVAL WEIGHT LOSS SURGERY PROVIDER LISSET KAT 01/2022 @ [facility] Plastic Surgery Comment on above: CONSULT FOR SKIN REMOVAL WEIGHT LOSS RED KENYON PROVIDER LISSET KAT, 01/2022 @ [facility] Start: 06-18-2023 End: 06-18-2023 Follow-up encounter 06/18/2023 4:00 PM EDT [facility] [address] [place] [address] Vic Ramos MD [address] [place] [address] Hospital Follow Up chronic pain Pain Management Comment on above: Hospital Follow Up chronic pain Start: 06-18-2023 End: 06-18-2023 Patient encounter procedure 06/18/2023 10:00 AM EDT Office Visit General Surgery [address] [facility] [address] [address] Breanna Stern APRN.MINI SHIFTER [address] [place] [address] Post PEG-J placement General Surgery Comment on above: Post PEG-J placement Start: 06-15-2023 End: 06-15-2023 Patient encounter procedure 06/15/2023 11:00 AM EDT Office Visit General Surgery [address] [address] Breanna Stern APRN.MINI SHIFTER [address] [place] [address] Post PEG-J placement General Surgery Comment on above: Post PEG-J placement Start: 06-13-2023 BP CONTROLLED (<130/80) BP CONTROLLED (<130/80) [facility] in Start: 05-30-2023 Bacteria identified in Urine by Culture [facility] Start: 04-12-2023 End: 04-12-2023 Telemedicine consultation with patient 04/12/2023 9:00 AM EST Telemedicine [facility] [address] [place] [address] [place] [address] [place] [address] [facility] Tyree[facility] Start: 11-23-2022 End: 11-24-2023 US MESENTERIC ARTERY CMPLT [facility]AS LAB US MESENTERIC ARTERY [facility]T [facility] Vascular Lab [place] Chronic nausea RUQ pain Expected: 11/23/2022, Expires: 11/24/2023 [facility] Work Phone: Comment on above: Expected: 11/23/2022, Expires: Start: 11-18-2022 End: 01-18-2023 25-hydroxyvitamin D3 [Mass/volume] in Serum or Plasma VITAMIN D 25 HYDROXY Lab Routine S/P bariatric surgery Impaired intestinal absorption Expected: 11/18/2022 (Approximate), Expires: 01/18/2023 [facility] Work Phone: Comment on above: Expected: 11/18/2022 (Approximate), Expi res: 01/18/2023 Start: 11-18-2022 End: 01-18-2023 CBC panel - Blood by Automated count CBC Lab Routine S/P bariatric surgery Impaired intestinal absorption Expected: 11/18/2022 (Approximate), Expires: 01/18/2023 [facility] Work Phone: Comment on above: Expected: 11/18/2022 (Approximate), Expi res: 01/18/2023 Start: 11-18-2022 End: 01-18-2023 Cobalamin (Vitamin B12) [Mass/volume] in Serum or Plasma VITAMIN B12 BLOOD Lab Routine S/P bariatric surgery Impaired intestinal absorption Expected: 11/18/2022 (Approximate), Expires: 01/18/2023 [facility] Work Phone: Comment on above: Expected: 11/18/2022 (Approximate), Expi res: 01/18/2023 Start: 11-18-2022 End: 01-18-2023 Comprehensive metabolic 2000 panel - Serum or Plasma COMP METABOLIC PANEL Lab Routine S/P bariatric surgery Impaired intestinal absorption Expected: 11/18/2022 (Approximate), Expires: 01/18/2023 [facility] Work Phone: Comment on above: Expected: 11/18/2022 (Approximate), Expi res: 01/18/2023 Start: 11-18-2022 End: 01-18-2023 Ferritin [Mass/volume] in Serum or Plasma FERRITIN BLD Lab Routine S/P bariatric surgery Impaired intestinal absorption Expected: 11/18/2022 (Approximate), Expires: 01/18/2023 [facility] Work Phone: Comment on above: Expected: 11/18/2022 (Approximate), Expi res: 01/18/2023 Start: 11-18-2022 End: 01-18-2023 Folate [Mass/volume] in Serum or Plasma FOLATE SERUM Lab Routine S/P bariatric surgery Impaired intestinal absorption Expected: 11/18/2022 (Approximate), Expires: 01/18/2023 [facility] Work Phone: Comment on above: Expected: 11/18/2022 (Approximate), Expi res: 01/18/2023 Start: 11-18-2022 End: 01-18-2023 Iron and Iron binding capacity panel - Serum or Plasma IRON + TIBC Lab Routine S/P bariatric surgery Impaired intestinal absorption Expected: 11/18/2022 (Approximate), Expires: 01/18/2023 [facility] Work Phone: Comment on above: Expected: 11/18/2022 (Approximate), Expi res: 01/18/2023 Start: 11-18-2022 End: 01-18-2023 Parathyrin.intact [Mass/volume] in Serum or Plasma PTH INTACT BLD Lab Routine S/P bariatric surgery Impaired intestinal absorption Expected: 11/18/2022 (Approximate), Expires: 01/18/2023 [facility] Work Phone: Comment on above: Expected: 11/18/2022 (Approximate), Expi res: 01/18/2023 Start: 11-18-2022 End: 01-18-2023 Retinol [Mass/volume] in Serum or Plasma VITAMIN A/RETINOL Lab Routine S/P bariatric surgery Impaired intestinal absorption Expected: 11/18/2022 (Approximate), Expires: 01/18/2023 [facility] Work Phone: Comment on above: Expected: 11/18/2022 (Approximate), Expi res: 01/18/2023 Start: 11-18-2022 End: 01-18-2023 VITAMIN B1 (THIAMINE), WHOLE BLOOD VITAMIN B1 (THIAMINE), WHOLE BLOOD Lab Routine S/P bariatric surgery Impaired intestinal absorption Expected: 11/18/2022 (Approximate), Expires: 01/18/2023 [facility] Work Phone: Comment on above: Expected: 11/18/2022 (Approximate), Expi res: 01/18/2023 Start: 11-18-2022 End: 01-18-2023 Zinc [Mass/volume] in Serum or Plasma ZINC BLD Lab Routine S/P bariatric surgery Impaired intestinal absorption Expected: 11/18/2022 (Approximate), Expires: 01/18/2023 [facility] Work Phone: Comment on above: Expected: 11/18/2022 (Approximate), Expi res: 01/18/2023 Start: 11-04-2022 End: 01-04-2023 Amylase [Enzymatic activity/volume] in Serum or Plasma [facility] Work Phone: Comment on above: Expected: 11/04/2022, Expires: Start: 11-04-2022 End: 01-04-2023 Lipase [Enzymatic activity/volume] in Serum or Plasma [facility] Work Phone: Comment on above: Expected: 11/04/2022, Expires: 3 Start: 10-16-2022 Covid-19 Vaccine () Covid-19 Vaccine () [facility] Start: 10-16-2022 Influenza vaccination [facility] Start: 09-15-2022 Influenza vaccination Flu vaccine (#1) [facility] Start: 07-28-2022 End: 09-27-2022 CBC W Auto Differential panel - Blood CBC + DIFF Lab Routine Rash and nonspecific skin eruption Expected: 07/28/2022, Expires: 09/27/2022 [facility] Work Phone: Comment on above: Expected: 07/28/2022, Expires: 3 Start: 07-28-2022 End: 09-27-2022 Comprehensive metabolic 2000 panel - Serum or Plasma COMP METABOLIC PANEL Lab Routine Rash and nonspecific skin eruption Facial edema Expected: 07/28/2022, Expires: 09/27/2022 [facility] Work Phone: Comment on above: Expected: 07/28/2022, Expires: 3 Start: 06-12-2022 End: 08-12-2022 MISAEL BY IFA WITH REFLEX [facility] Work Phone: Comment on above: Expected: 06/12/2022, Expires: 3 Start: 06-12-2022 End: 08-12-2022 Borrelia burgdorferi IgG and IgM panel - Serum [facility] Work Phone: Comment on above: Expected: 06/12/2022, Expires: 3 Start: 06-12-2022 End: 08-12-2022 Cyclic citrullinated peptide IgG Ab [Units/volume] in Serum or Plasma [facility] Work Phone: Comment on above: Expected: 06/12/2022, Expires: 3 Start: 06-12-2022 End: 08-12-2022 MONOCLONAL PROTEIN, SERUM (BLOOD) [facility] Work Phone: Comment on above: Expected: 06/12/2022, Expires: 3 Start: 06-12-2022 End: 08-12-2022 Niacin [Mass/volume] in Serum or Plasma [facility] Work Phone: Comment on above: Expected: 06/12/2022, Expires: 3 Start: 06-12-2022 End: 08-12-2022 PROTEIN ELECTROPHORESIS SERUM W/INTERP [facility] Work Phone: Comment on above: Expected: 06/12/2022, Expires: 3 Start: 06-12-2022 End: 08-12-2022 Pyridoxine [Mass/volume] in Serum or Plasma [facility] Work Phone: Comment on above: Expected: 06/12/2022, Expires: 3 Start: 06-12-2022 End: 08-12-2022 VITAMIN B1 (THIAMINE), WHOLE BLOOD [facility] Work Phone: Comment on above: Expected: 06/12/2022, Expires: 3 Start: 05-03-2022 End: 07-03-2022 25-hydroxyvitamin D3 [Mass/volume] in Serum or Plasma VITAMIN D 25 HYDROXY Lab Routine S/P gastric bypass Postoperative malabsorption Expected: 05/03/2022 (Approximate), Expires: 07/03/2022 [facility] Work Phone: Comment on above: Expected: 05/03/2022 (Approximate), Expi res: 07/03/2022 Start: 05-03-2022 End: 07-03-2022 CBC panel - Blood by Automated count CBC Lab Routine S/P gastric bypass Postoperative malabsorption Expected: 05/03/2022 (Approximate), Expires: 07/03/2022 [facility] Work Phone: Comment on above: Expected: 05/03/2022 (Approximate), Expi res: 07/03/2022 Start: 05-03-2022 End: 07-03-2022 Cobalamin (Vitamin B12) [Mass/volume] in Serum or Plasma VITAMIN B12 BLOOD Lab Routine S/P gastric bypass Postoperative malabsorption Expected: 05/03/2022 (Approximate), Expires: 07/03/2022 [facility] Work Phone: Comment on above: Expected: 05/03/2022 (Approximate), Expi res: 07/03/2022 Start: 05-03-2022 End: 07-03-2022 Comprehensive metabolic 2000 panel - Serum or Plasma COMP METABOLIC PANEL Lab Routine S/P gastric bypass Postoperative malabsorption Expected: 05/03/2022 (Approximate), Expires: 07/03/2022 [facility] Work Phone: Comment on above: Expected: 05/03/2022 (Approximate), Expi res: 07/03/2022 Start: 05-03-2022 End: 07-03-2022 Ferritin [Mass/volume] in Serum or Plasma FERRITIN BLD Lab Routine S/P gastric bypass Postoperative malabsorption Expected: 05/03/2022 (Approximate), Expires: 07/03/2022 [facility] Work Phone: Comment on above: Expected: 05/03/2022 (Approximate), Expi res: 07/03/2022 Start: 05-03-2022 End: 07-03-2022 Folate [Mass/volume] in Serum or Plasma FOLATE SERUM Lab Routine S/P gastric bypass Postoperative malabsorption Expected: 05/03/2022 (Approximate), Expires: 07/03/2022 [facility] Work Phone: Comment on above: Expected: 05/03/2022 (Approximate), Expi res: 07/03/2022 Start: 05-03-2022 End: 07-03-2022 Iron and Iron binding capacity panel - Serum or Plasma IRON + TIBC Lab Routine S/P gastric bypass Postoperative malabsorption Expected: 05/03/2022 (Approximate), Expires: 07/03/2022 [facility] Work Phone: Comment on above: Expected: 05/03/2022 (Approximate), Expi res: 07/03/2022 Start: 05-03-2022 End: 07-03-2022 Parathyrin.intact [Mass/volume] in Serum or Plasma PTH INTACT BLD Lab Routine S/P gastric bypass Postoperative malabsorption Expected: 05/03/2022 (Approximate), Expires: 07/03/2022 [facility] Work Phone: Comment on above: Expected: 05/03/2022 (Approximate), Expi res: 07/03/2022 Start: 05-03-2022 End: 07-03-2022 Thyrotropin [Units/volume] in Serum or Plasma TSH BLD Lab Routine S/P gastric bypass Postoperative malabsorption Expected: 05/03/2022 (Approximate), Expires: 07/03/2022 [facility] Work Phone: Comment on above: Expected: 05/03/2022 (Approximate), Expi res: 07/03/2022 Start: 05-03-2022 End: 07-03-2022 VITAMIN B1 (THIAMINE), WHOLE BLOOD VITAMIN B1 (THIAMINE), WHOLE BLOOD Lab Routine S/P gastric bypass Postoperative malabsorption Expected: 05/03/2022 (Approximate), Expires: 07/03/2022 [facility] Work Phone: Comment on above: Expected: 05/03/2022 (Approximate), Expi res: 07/03/2022 Start: 12-25-2021 End: 12-17-2022 PH HUERTA INSERT OFF MEDS PH HUERTA INSERT OFF MEDS Endoscopy Routine Regurgitation of food Gastroesophageal reflux disease, unspecified whether esophagitis present Expected: 12/25/2021, Expires: 12/17/2022 [facility] Work Phone: Comment on above: Expected: 12/25/2021, Expires: Start: 10-16-2021 Influenza vaccination [facility] Start: 10-09-2021 End: 12-09-2021 25-hydroxyvitamin D3 [Mass/volume] in Serum or Plasma VITAMIN D 25 HYDROXY Lab Routine S/P laparoscopic sleeve gastrectomy Expected: 10/09/2021, Expires: 12/09/2021 [facility] Work Phone: Comment on above: Expected: 10/09/2021, Expires: 2 Start: 10-09-2021 End: 12-09-2021 Cobalamin (Vitamin B12) [Mass/volume] in Serum or Plasma VITAMIN B12 BLOOD Lab Routine S/P laparoscopic sleeve gastrectomy Expected: 10/09/2021, Expires: 12/09/2021 [facility] Work Phone: Comment on above: Expected: 10/09/2021, Expires: 2 Start: 10-09-2021 End: 12-09-2021 Ferritin [Mass/volume] in Serum or Plasma FERRITIN BLD Lab Routine S/P laparoscopic sleeve gastrectomy Expected: 10/09/2021, Expires: 12/09/2021 [facility] Work Phone: Comment on above: Expected: 10/09/2021, Expires: 2 Start: 10-09-2021 End: 12-09-2021 Folate [Mass/volume] in Serum or Plasma FOLATE SERUM Lab Routine S/P laparoscopic sleeve gastrectomy Expected: 10/09/2021, Expires: 12/09/2021 [facility] Work Phone: Comment on above: Expected: 10/09/2021, Expires: 2 Start: 10-09-2021 End: 12-09-2021 Hemoglobin A1c in Blood HGB A1C Lab Routine S/P laparoscopic sleeve gastrectomy Expected: 10/09/2021, Expires: 12/09/2021 [facility] Work Phone: Comment on above: Expected: 10/09/2021, Expires: 2 Start: 10-09-2021 End: 12-09-2021 Iron and Iron binding capacity panel - Serum or Plasma IRON + TIBC Lab Routine S/P laparoscopic sleeve gastrectomy Expected: 10/09/2021, Expires: 12/09/2021 [facility] Work Phone: Comment on above: Expected: 10/09/2021, Expires: 2 Start: 10-09-2021 End: 12-09-2021 Lipid 1996 panel - Serum or Plasma LIPID PANEL BASIC Lab Routine S/P laparoscopic sleeve gastrectomy Expected: 10/09/2021, Expires: 12/09/2021 [facility] Work Phone: Comment on above: Expected: 10/09/2021, Expires: 2 Start: 10-09-2021 End: 12-09-2021 Parathyrin.intact [Mass/volume] in Serum or Plasma PTH INTACT BLD Lab Routine S/P laparoscopic sleeve gastrectomy Expected: 10/09/2021, Expires: 12/09/2021 [facility] Work Phone: Comment on above: Expected: 10/09/2021, Expires: 2 Start: 10-09-2021 End: 12-09-2021 Thyrotropin [Units/volume] in Serum or Plasma TSH BLD Lab Routine S/P laparoscopic sleeve gastrectomy Expected: 10/09/2021, Expires: 12/09/2021 [facility] Work Phone: Comment on above: Expected: 10/09/2021, Expires: 2 Start: 10-09-2021 End: 12-09-2021 VITAMIN B1 (THIAMINE), WHOLE BLOOD VITAMIN B1 (THIAMINE), WHOLE BLOOD Lab Routine S/P laparoscopic sleeve gastrectomy Expected: 10/09/2021, Expires: 12/09/2021 [facility] Work Phone: Comment on above: Expected: 10/09/2021, Expires: 2 Start: 06-23-2021 End: 06-23-2021 Patient encounter procedure 06/23/2021 Office Visit Sports Medicine Belen Stovall MD [address] [address] Sports Medicine Outpatient [facility] Start: 04-15-2021 COVID-19 VACCINE (3 - Booster for Woo series) COVID-19 VACCINE (3 - Booster for Woo series) [facility] Start: 10-16-2020 Influenza vaccination [facility] Start: 10-17-2019 Influenza vaccination [facility]ACC[facility] Start: 2019 HPV TESTING HPV TESTING [facility] Start: 2019 Screening for malignant neoplasm of cervix [facility] Start: 2010 PAP TESTING PAP TESTING [facility] Start: 2010 Screening for malignant neoplasm of cervix [facility] Start: 2008 DTaP/Tdap/Td vaccine (1 - Tdap) DTaP/Tdap/Td vaccine (1 - Tdap) [facility] [employer] Phone: Start: 2008 Hepatitis A Vaccines (1 of 2 - Risk 2-dose series) Hepatitis A Vaccines (1 of 2 - Risk 2-dose series) [facility] Start: 2008 Hepatitis B Vaccine (1 of 3 - 19+ 3-dose series) Hepatitis B Vaccine (1 of 3 - 19+ 3-dose series) [facility] Start: 2008 Hepatitis B Vaccines (1 of 3 - 19+ 3-dose series) Hepatitis B Vaccines (1 of 3 - 19+ 3-dose series) [facility] Start: 2008 Third diphtheria, tetanus and acellular pertussis (DTaP) vaccination TDAP (ADULT) [facility] Start: 2008 Urine microalbumin profile DTAP,TDAP,TD (1 - Tdap) [facility] Start: 2007 ANNUAL PCP TEAM CHRONIC DISEASE VISIT ANNUAL PCP TEAM CHRONIC DISEASE VISIT [facility] Start: 2007 BP CONTROLLED (<130/80) BP CONTROLLED (<130/80) [facility] Start: 2007 HEPATITIS C SCREENING HEPATITIS C SCREENING [facility] Start: 2007 Hepatitis C screening [facility] Start: 2007 HIV SCREENING HIV SCREENING [facility] Start: 2007 HIV screening HIV Screening [facility] Start: 2007 SPIROMETRY SPIROMETRY [facility] Start: 2007 Tetanus vaccination TETANUS [facility] Start: 2004 HIV screening [facility] Start: 2002 HIV screening HIV SCREENING DISCUSSION [facility] Start: 2002 Varicella vaccination Varicella Vaccines (1 of 2 - 13+ 2-dose series) [facility] Start: 2001 COVID-19 VACCINE (1) COVID-19 VACCINE (1) [facility] Start: 2001 Depression Screen Depression Screen [facility] Start: 1995 PNEUMOCOCCAL (1 - PCV) PNEUMOCOCCAL (1 - PCV) [facility] Start: 1995 Pneumococcal vaccination Pneumococcal Vaccine (1 - PCV) [facility] Start: 1995 Pneumococcal Vaccine: Pediatrics (0 to 5 Years) and At-Risk Patients (6 to 64 Years) (1 of 2 - PCV) Pneumococcal Vaccine: Pediatrics (0 to 5 Years) and At-Risk Patients (6 to 64 Years) (1 of 2 - PCV) [facility] Start: 1990 MMR Vaccines (1 of 1 - Standard series) MMR Vaccines (1 of 1 - Standard series) [facility] Start: 1990 Varicella vaccination Varicella Vaccines (1 of 2 - 2-dose childhood series) [facility] Start: 1990 Varicella vaccine (1 of 2 - 2-dose childhood series) Varicella vaccine (1 of 2 - 2-dose childhood series) [facility] Start: 1989 HEPATITIS B (1 of 3 - 3-dose series) HEPATITIS B (1 of 3 - 3-dose series) [facility] Start: 1989 Hepatitis B Vaccine (1 of 3 - 3-dose series) Hepatitis B Vaccine (1 of 3 - 3-dose series) [facility] Start: 1989 Hepatitis B Vaccines (1 of 3 - 3-dose series) Hepatitis B Vaccines (1 of 3 - 3-dose series) [facility] Start: 1989 Hepatitis C antibody, confirmatory test HEPATITIS C VIRUS SCREENING [facility] Start: 1989 Hepatitis C screening [facility] Start: 1989 HIV screening HIV Screening [facility] Start: 1989 Lipid panel Lipid Panel [facility] Start: 1989 Thyroid stimulating hormone measurement TSH [facility] Start: 1989 TSH Qn TSH [facility] Start: 1989 Yearly Adult Physical Yearly Adult Physical [facility] End: 07-23-2023 [facility] Endoscopy Routine Constipation, unspecified constipation type 1 Occurrences starting 07/22/2022 until 07/23/2023 [facility] Work Phone: Comment on above: 1 Occurrences starting 07/22/2022 until 07/23/2023 End: 03-23-2023 Basic metabolic 2000 panel - Serum or Plasma Basic Metabolic Panel Lab Routine Morning draw (Lab) for 3 Occurrences starting 03/21/2023 until 03/23/2023 [facility] Work Phone: Comment on above: Morning draw (Lab) for 3 Occurrences sta rting 03/21/2023 until 03/23/2023 End: 03-12-2023 CBC panel - Blood by Automated count CBC Lab Routine Morning draw (Lab) for 3 Occurrences starting 03/10/2023 until 03/12/2023, 1 completed [facility] Service Area Work Phone: Comment on above: Morning draw (Lab) for 3 Occurrences sta rting 03/10/2023 until 03/12/2023, 1 completed End: 03-23-2023 CBC panel - Blood by Automated count CBC Lab Routine Morning draw (Lab) for 3 Occurrences starting 03/21/2023 until 03/23/2023 [facility] Work Phone: Comment on above: Morning draw (Lab) for 3 Occurrences sta rting 03/21/2023 until 03/23/2023 End: 03-16-2023 CBC W Auto Differential panel - Blood CBC and Auto Differential Lab STAT Once (Lab) for 1 Occurrences starting 03/16/2023 until 03/16/2023 [facility] Work Phone: Comment on above: Once (Lab) for 1 Occurrences starting until 03/16/2023 End: 03-16-2023 Comprehensive metabolic 2000 panel - Serum or Plasma Comprehensive metabolic panel Lab STAT STAT (Lab) for 1 Occurrences starting 03/16/2023 until 03/16/2023 [facility] Work Phone: Comment on above: STAT (Lab) for 1 Occurrences starting until 03/16/2023 End: 01-03-2024 Ct angio abd&plvis cntrst mtrl w/wo cntrst img CTA ABD/PEL W IVCON Radiology Routine Generalized abdominal pain 1 Occurrences starting 12/04/2022 until 01/03/2024 [facility] Work Phone: Comment on above: 1 Occurrences starting 12/04/2022 until 01/03/2024 ECG 12 Lead ECG 12 Lead ECG STAT As needed until discontinued starting 06/29/2023 [facility] Work Phone: Comment on above: As needed until discontinued starting ECG 12 Lead ECG 12 Lead ECG STAT 06/29/2023 8:50 PM EDT [facility] Work Phone: End: 01-28-2023 ECG COMPLETE ECG COMPLETE ECG Routine Pre-op evaluation 1 Occurrences starting 01/28/2022 until 01/28/2023 [facility] Work Phone: Comment on above: 1 Occurrences starting 01/28/2022 until 01/28/2023 End: 11-17-2022 EGD - THERAPEUTIC, EUS, OR TUBE INTERVENTIONS EGD - THERAPEUTIC, EUS, OR TUBE INTERVENTIONS Endoscopy Routine Gastroesophageal reflux disease without esophagitis 1 Occurrences starting 11/17/2021 until 11/17/2022 [facility] Work Phone: Comment on above: 1 Occurrences starting 11/17/2021 until 11/17/2022 End: 03-05-2023 EGD - THERAPEUTIC, EUS, OR TUBE INTERVENTIONS EGD - THERAPEUTIC, EUS, OR TUBE INTERVENTIONS Endoscopy Routine Esophageal dysphagia S/P gastric bypass 1 Occurrences starting 03/05/2022 until 03/05/2023 [facility] Work Phone: Comment on above: 1 Occurrences starting 03/05/2022 until 03/05/2023 End: 04-27-2024 EGD - THERAPEUTIC, EUS, OR TUBE INTERVENTIONS EGD - THERAPEUTIC, EUS, OR TUBE INTERVENTIONS Endoscopy Routine Gastroesophageal reflux disease, unspecified whether esophagitis present 1 Occurrences starting 04/28/2023 until 04/27/2024 [facility] Work Phone: Comment on above: 1 Occurrences starting 04/28/2023 until 04/27/2024 End: 10-09-2022 EGD BARIATRIC EGD BARIATRIC Endoscopy Routine Gastroesophageal reflux disease, unspecified whether esophagitis present Bariatric surgery status Class 1 obesity with serious comorbidity and body mass index (BMI) of 31.0 to 31.9 in adult, unspecified obesity type S/P laparoscopic sleeve gastrectomy 1 Occurrences starting 10/09/2021 until 10/09/2022 [facility] Work Phone: Comment on above: 1 Occurrences starting 10/09/2021 until 10/09/2022 End: 10-21-2023 EGD DIAGNOSTIC EGD DIAGNOSTIC Endoscopy Routine Epigastric pain 1 Occurrences starting 10/20/2022 until 10/21/2023 [facility] Work Phone: Comment on above: 1 Occurrences starting 10/20/2022 until 10/21/2023 Electrocardiogram, 12-lead PRN ACS symptoms Electrocardiogram, 12-lead PRN ACS symptoms ECG Routine As needed until discontinued starting 03/05/2023 [facility] Work Phone: Comment on above: As needed until discontinued starting Electrocardiogram, 12-lead PRN ACS symptoms Electrocardiogram, 12-lead PRN ACS symptoms ECG Routine 03/08/2023 10:45 AM EST [facility] Work Phone: Electrocardiogram, 12-lead PRN ACS symptoms Electrocardiogram, 12-lead PRN ACS symptoms ECG Routine As needed until discontinued starting 03/16/2023 [facility] Service Area Work Phone: Comment on above: As needed until discontinued starting Glucose [Mass/volume ] in Serum or Plasma POCT Glucose Point of Care Testing - Docked Device Routine Every 4 hours (Lab) until discontinued starting 03/05/2023, 30 completed [facility] Work Phone: Comment on above: Every 4 hours (Lab) until discontinued s tarting 03/05/2023, 30 completed End: 12-04-2023 Hepatobil syst imag inc gb w/pharma intervenj NM HEPATOBILIARY W EF AND/OR RX Radiology Routine Nausea RUQ pain History of cholecystectomy 1 Occurrences starting 11/04/2022 until 12/04/2023 [facility] Work Phone: Comment on above: 1 Occurrences starting 11/04/2022 until 12/04/2023 End: 03-18-2023 Incentive spirometry Instruct Incentive spirometry Instruct Respiratory Care Routine Once for 1 Occurrences starting 03/18/2023 until 03/18/2023 [facility] Service Area Work Phone: Comment on above: Once for 1 Occurrences starting 03/18/19 until 03/18/2023 Injx anes celiac ple xus w/wo radiologic monitrng DIAG/THER NRV BLK CELIAC PLEXUS Procedures Routine Chronic pain syndrome Ordered: 01/11/2023 [facility] Work Phone: Comment on above: Ordered: 01/11/2023 End: 06-30-2023 Methicillin resistant Staphylococcus aureus [Presence] in Nose by Organism specific culture Staphylococcus Aureus/MRSA Colonization, Culture Microbiology Routine Once (Lab) for 1 Occurrences starting 06/30/2023 until 06/30/2023 [facility] Area Work Phone: Comment on above: Once (Lab) for 1 Occurrences starting until 06/30/2023 Patient Education [facility] Work Phone: Patient referral [facility] Work Phone: End: 04-27-2024 PH HUERTA INSERT ON MEDS PH HUERTA INSERT ON MEDS Endoscopy Routine Gastroesophageal reflux disease, unspecified whether esophagitis present 1 Occurrences starting 04/28/2023 until 04/27/2024 [facility] Work Phone: Comment on above: 1 Occurrences starting 04/28/2023 until 04/27/2024 End: 11-18-2022 PH IMPEDANCE INSERT OFF MEDS PH IMPEDANCE INSERT OFF MEDS Endoscopy Routine Gastroesophageal reflux disease without esophagitis S/P laparoscopic sleeve gastrectomy 1 Occurrences starting 11/19/2021 until 11/18/2022 [facility] Work Phone: Comment on above: 1 Occurrences starting 11/19/2021 until 11/18/2022 End: 03-05-2023 Pulse oximetry, continuous Pulse oximetry, continuous Respiratory Care Routine Continuous until discontinued starting 03/05/2023 [facility] Work Phone: Comment on above: Continuous until discontinued starting 0 03/05/2023 End: 06-30-2023 Pulse oximetry, continuous Pulse oximetry, continuous Respiratory Care Routine Continuous until discontinued starting 06/30/2023 [facility] Work Phone: Comment on above: Continuous until discontinued starting 0 06/30/2023 End: 10-18-2023 Radiologic exam upr gi trc double contrast study XR UPPER GI ROUTINE DOUBLE CONTRAST/AIR Radiology Routine S/P bariatric surgery Gastroesophageal reflux disease, unspecified whether esophagitis present 1 Occurrences starting 09/18/2022 until 10/18/2023 [facility] Work Phone: Comment on above: 1 Occurrences starting 09/18/2022 until 10/18/2023 SURGICAL PATHOLOGY [facility] Work Phone: Comment on above: Release Upon Ordering for 1 Occurrences starting 12/25/2021, 1 completed Surgical pathology study [facility] Work Phone: Comment on above: Release Upon Ordering for 1 Occurrences starting 03/19/2023, 1 completed End: 03-10-2023 Urethral Catheter Removal Urethral Catheter Removal Procedures Routine Once for 1 Occurrences starting 03/10/2023 until 03/10/2023 [facility] Work Phone: Comment on above: Once for 1 Occurrences starting 03/10/19 until 03/10/2023 End: 07-03-2023 Urethral Catheter Removal Urethral Catheter Removal Procedures Routine Once for 1 Occurrences starting 07/03/2023 until 07/03/2023 [facility] Work Phone: Comment on above: Once for 1 Occurrences starting 07/03/19 until 07/03/2023 End: 12-04-2023 US ABD RIGHT UPPER QUADRANT US ABD RIGHT UPPER QUADRANT Radiology Routine Nausea RUQ pain History of cholecystectomy 1 Occurrences starting 11/04/2022 until 12/04/2023 [facility] Work Phone: Comment on above: 1 Occurrences starting 11/04/2022 until 12/04/2023 US ABD RIGHT UPPER QUADRANT US ABD RIGHT UPPER QUADRANT Radiology Routine Nausea RUQ pain History of cholecystectomy 11/04/2022 11:15 AM EDT [facility] Work Phone: End: 12-04-2023 XR KNEE GENERAL 4V AP BOTH/PA BOTH/LAT/MERC RIGHT XR KNEE GENERAL 4V AP BOTH/PA BOTH/LAT/MERC RIGHT Radiology Routine Right knee pain, unspecified chronicity 1 Occurrences starting 11/04/2022 until 12/04/2023 [facility] Work Phone: Comment on above: 1 Occurrences starting 11/04/2022 until 12/04/2023 [facility] [place] [facility] [place] [facility] [place] [facility] [place] [facility] [place] [facility] [place] [facility] [place] [facility] [place] [facility] [place] [facility] Immunizations Immunization Date Immunization Notes Care Provider Fa su 11-12-2022 influenza, injectabl e, quadrivalent, preservative free Deacon Kat MD Work Phone: [facility] 11-16-2021 influenza virus vaccine, unspecified formulation [facility] Jose Ramon [facility] 02-18-2021 SARS-CoV-2 (COVID-19 ) mRNA BNT-162b2 vax [facility] Comment on above: Result Comment: 2022: TPVALL 01-01-2021 influenza virus vaccine, unspecified formulation [facility] Albright [facility] 01-01-2021 influenza, seasonal, injectable uKldip Yousif MD Work Phone: [facility] 12-25-2020 influenza virus vaccine, unspecified formulation [facility] 12-25-2020 influenza, injectabl e, quadrivalent, preservative free Kuldip Yousif MD Work Phone: [facility] 06-23-2020 COVID-19 Vaccine Woo - Documentation Purposes Only Shanna June Other [facility] Comment on above: Result Comment: 2022: TPVAL 11-28-2018 influenza, seasonal, injectable Shanna June Other [facility] 11-28-2018 influenza virus vaccine, unspecified formulation Agustin Gustafson [facility] 09-21-2016 tetanus toxoid, redu lauren diphtheria toxoid, and acellular pertussis vaccine, adsorbed Kuldip Yousif MD Work Phone: [facility] Payers Date Payer Category Payer Unknown [id number] 2023 Self-pay [id number] 2020 Private Health Insurance [id number] 2020 Private Health Insurance [facility] UMR CHOICE PLUS [id number] 2020-Present [phone] [address] [address] [place] [address] O [id number]. 7.3.051189.315 2017 Unknown 2017 Unknown [employer] M MO [id number] 2017-Present [id number] 1.2.840.118572.1.13.172.2. 7.3.158154.315 1989 Unknown [id number] 2.16.840.1.842283.3.579.2. 594 1989 Unknown [id number] 2.16.840.1.493055.3.579.2. 594 1989 Unknown [id number] 2.16.840.1.659319.3.579.2. 593 1989 Unknown [id number] 2.16.840.1.482886.3.579.2. 593 1989 Unknown [id number] 2.16.840.1.861076.3.579.2. 593 1989 Unknown [id number] 2.16.840.1.553928.3.579.2. 593 1989 Unknown [id number] 2.16.840.1.302535.3.579.2. 593 1989 Unknown [id number] 2.16.840.1.298541.3.579.2. 593 1989 Unknown [id number] 2.16.840.1.716097.3.579.2. 593 1989 Unknown [id number] 2.16.840.1.919892.3.579.2. 593 1989 Unknown [id number] 2.16.840.1.078281.3.579.2. 593 1989 Unknown [id number] 2.16.840.1.514027.3.579.2. 593 1989 Unknown [id number] 2.16.840.1.236168.3.579.2. 593 1989 Unknown [id number] 2.16.840.1.784471.3.579.2. 593 1989 Unknown [id number] 2.16.840.1.393877.3.579.2. 173 1989 Unknown [id number] 2.16.840.1.005526.3.579.2. 173 1989 Unknown [id number] 2.16.840.1.907388.3.579.2. 173 1989 Unknown [id number] 2.16.840.1.362142.3.579.2. 983 1989 Unknown [id number] 2.16.840.1.729577.3.579.2. 196 1989 Unknown [id number] 2.16.840.1.463500.3.579.2. 182 1989 Unknown [id number] 2.16.840.1.160078.3.579.2. 182 1989 Unknown [id number] 2.16.840.1.275862.3.579.2. 1243 1989 Unknown [id number] 2.16.840.1.051293.3.579.2. 1245 1989 Unknown [id number] 2.16.840.1.484994.3.579.2. 1244 1989 Unknown [id number] 2.16.840.1.167109.3.579.2. 1244 1989 Unknown [id number] 2.16.840.1.263833.3.579.2. 1244 1989 Unknown [id number] 2.16.840.1.211980.3.579.2. 1244 1989 Unknown [id number] 2.16.840.1.240289.3.579.2. 1243 1989 Unknown [id number] 2.16.840.1.897635.3.579.2. 4 1989 Unknown [id number] 2.16.840.1.507612.3.579.2. 1243 1989 Unknown [id number] 2.16.840.1.266849.3.579.2. 1243 1989 Unknown [id number] 2.16.840.1.380593.3.579.2. 1243 1989 Unknown [id number] 2.16.840.1.196380.3.579.2. 1243 1989 Unknown [id number] 2.840.1.975696.3.579.2. 1243 1989 Unknown [id number] 2.16.840.1.663610.3.579.2. 1243 1989 Unknown [id number] 2.16.840.1.566262.3.579.2. 1243 1989 Unknown [id number] 2.16.840.1.204332.3.579.2. 9 1989 Unknown [id number] 2.16.840.1.032687.3.579.2. 1258 1989 Unknown [id number] 2.16.840.1.123779.3.579.2. 9 1989 Unknown [id number] 2.16.840.1.048414.3.579.2. 727 1989 Unknown [id number] 2.16.840.1.816017.3.579.2. 727 1989 Unknown [id number] 2.16.840.1.930530.3.579.2. 727 1989 Unknown [id number] 2.16.840.1.358869.3.579.2 1989 Unknown [id number] 2.16.840.1.493425.3.579.2 1989 Unknown [id number] 2.16.840.1.883856.3.579.2 1989 Unknown [id number] 2.16.840.1.160911.3.579.2 1989 Unknown [id number] 2.16.840.1.102080.3.579.2 1989 Unknown [id number] 2.16.840.1.168778.3.579. 1989 Unknown [id number] 2.16.840.1.825777.3.579. 1989 Unknown [id number] 2.16.840.1.238003.3.579.2 1989 Unknown [id number] 2.16.840.1.475691.3.579.2 1989 Unknown [id number] 2.16.840.1.300106.3.579.2 1989 Unknown [id number] 2.16.840.1.285195.3.579.2 1989 Unknown [id number] 2.16.840.1.538691.3.579.2 1989 Unknown [id number] 2.16.840.1.730307.3.579.2 1989 Unknown [id number] 2.16.840.1.806465.3.579.2 1989 Unknown [id number] 2.16.840.1.661969.3.579.2 1989 Unknown [id number] 2.16.840.1.293572.3.579.2 1989 Unknown [id number] 2.16.840.1.311560.3.579.2. 7 1989 Unknown [id number] 2.16.840.1.473015.3.579.2. 1989 Unknown [id number] 2.16.840.1.130205.3.579.2. 1989 Unknown [id number] 2.16.840.1.388795.3.579.2 1989 Unknown [id number] 2.16.840.1.716176.3.579.2 1989 Unknown [id number] 2.16.840.1.837694.3.579.2 1989 Unknown [id number] 2.16.840.1.928175.3.579.2 1989 Unknown [id number] 2.16.840.1.431409.3.579.2 1989 Unknown [id number] 2.16.840.1.945997.3.579.2 1989 Unknown [id number] 2.16.840.1.927869.3.579.2 1989 Unknown [id number] 2.16.840.1.215300.3.579.2 1989 Unknown [id number] 2.16.840.1.001693.3.579.2 1989 Unknown [id number] 2.16.840.1.651382.3.579.2. 727 1959 Unknown [id number] 1.2.840.510165.1.13.239.2. 7.3.896001.315 1959 Unknown [id number] Unknown [id number] 2.16.840.1.832655.3.579.2. 531 Unknown [id number] 2.16.840.1.475181.3.579.2. 531 Unknown [id number] 2.16.840.1.558530.3.579.2. 531 Unknown [id number] 2.16.840.1.481338.3.579.2. 531 Unknown [id number] 2.16.840.1.733246.3.579.2. 531 Social History Date Type Detail Facility Start: 01-30-2020 End: 08-14-2023 Tobacco smoking status WAIS Never smoker [facility] Start: 01-30-2020 End: 01-28-2022 Tobacco use and exposure Never used [facility] Start: 01-30-2020 End: 11-02-2022 Alcohol intake Current non-drinker of alcohol (finding) [facility] Start: 1990 Sex Assigned At Not on file A [facility] Start: 06-08-2021 End: 06-29-2023 Exposure to SARS-CoV-2 (event) Not sure [facility] Start: 05-06-2021 End: 08-09-2023 Alcohol intake Ex-drinker (finding) [facility] Start: 10-16-2019 End: 06-20-2022 History SDOH Financial 5 [facility] Start: 10-16-2019 End: 06-20-2022 History SDOH Food Worry 1 [facility] Start: 10-16-2019 End: 06-20-2022 History SDOH Transport Med 2 [facility] Start: 10-15-2019 Education 18 [facility] Start: 06-17-2022 End: 09-18-2022 Sex Assigned At [facility] Start: 10-04-2021 End: 01-01-2022 Exposure to SARS-CoV-2 (event) Unable to assess [facility] Tobacco smoking status Never [facility] Start: 06-17-2022 End: 09-18-2022 History of Social function [facility] Work Phone: (I/We) worried law er (my/our) food would run out before (I/we) got money to buy more. Never true [facility] Work Phone: In the past 12 month s, was there a time when you were not able to pay the mortgage or rent on time? No [facility] Work Phone: Do you belong to any clubs or organizations such as restorationist groups, unions, fraternal or athletic groups, or school groups? Yes [facility] Are you now , , , , never or living with a partner? [facility] How often to you hav e a drink containing alcohol? Never [facility] How hard is it for y ou to pay for the very basics like food, housing, medical care, and heating Somewhat hard [facility] Do you feel stress - tense, restless, nervous, or anxious, or unable to sleep at night because your mind is troubled all the time - these days [OSQ] To some extent [facility] Start: 11-12-2017 Gender identity Identifies as female gender (finding) [facility] How hard is it for y ou to pay for the very basics like food, housing, medical care, and heating Hard [facility] (I/We) worried law er (my/our) food would run out before (I/we) got money to buy more. Sometimes true [facility] Start: 1990 Sex Assigned At Female F [facility] How hard is it for y ou to pay for the very basics like food, housing, medical care, and heating Not very hard [facility] Work Phone: Start: 03-02-2023 Sexual orientation Heterosexual (graham rosado) [facility] Work Phone: Tobacco [facility] Comment on above: denies Tobacco smoking status No Smokin g Status Entered [facility] Do you feel stress - tense, restless, nervous, or anxious, or unable to sleep at night because your mind is troubled all the time - these days [OSQ] Rather much [facility] Work Phone: NEGATED: Highlighted row [facility] Medical Equipment Procedure Code Equipment Code Equipment Origin al Text Equipment Identifier Dates Fibertak Hip Yoanna f Bunching [place] 1.8mm [id number] Start: 07-10-2021 Fibertak Hip Yoanna f Bunching [place] 1.8mm [id number] Start: 07-10-2021 Fibertak Hip Yoanna f Bunching [place] 1.8mm [id number] Start: 07-10-2021 Fibertak Hip Yoanna f Bunching [place] 1.8mm [id number] Start: 07-10-2021 Membrane, Sepraf ilm, 5 X 6 In - [id number] Start: 03-05-2023 One touch Verio strips for One Touch Verio meter; test 4 times a day [id number] Start: 01-16-2019 End: 03-10-2023 Functional Status Date Assessment Result Facility 07-17-2023 Functional status Patient at Baseline [facility] Work Phone: 05-17-2023 Functional Status N/A [facility] 05-12-2023 Functional Status No [facility] 05-12-2023 Functional Status [facility] 05-11-2023 Functional Status N/A [facility] 05-09-2023 Functional Status N/A [facility] 05-06-2023 Functional Status N/A [facility] 04-02-2023 Functional Status N/A [facility] 03-16-2023 Functional Status N/A [facility] 03-15-2023 Functional Status N/A [facility] 12-31-2022 Functional Status N/A [facility] 10-20-2022 Functional Status N/A [facility] 10-19-2022 Functional Status N/A [facility] 07-29-2022 Functional Status N/A [facility] 06-10-2022 Functional Status N/A [facility] Mental Status Date Assessment Result Facility 07-17-2023 Cognitive function Cognitive Sta tus Patient at Baseline [facility] Work Phone: Clinical Notes 07-09-2019 [...] have family/friend present for procedure transport home: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 Any barriers to Patient learning: Patient/Patient School Photograph Editor responded appropriately on phone. Type of instruction given: Verbal by telephone contact. Radha Osman MA [facility] 08-12-2023 Miscellaneous Notes GI Pre-Procedure Spoke with patient: Yes Confirmed date scheduled and patient report time: Yes Procedure Planned:Huerta insert Esophagogastroduodenoscopy(EGD) for control of bleeding,dilation(any means),imaging,tube placement Is the patient on blood thinners?no Procedure Instructions given to patient: Yes, and they verbalized their understanding of instructions given Patient instructed to have family/friend present for procedure transport home: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 Any barriers to Patient learning: Patient/Patient School Photograph Editor responded appropriately on phone. Type of instruction given: Verbal by telephone contact. Radha Osman MA documented in this encounter [facility] 08-09-2023 History of Presen t illness Narrative Images from the original note were not included. SUBJECTIVE: The patient presents to [facility] Pain Management Department for a follow-up [...] with ketamine nasal spray. Her usual pharmacy [facility] is out of stock on this x 1 week so I did make some suggestions re: [place] vs. different [place] location vs. [employer] online to try She previously tried gabapentin, [...] spray continued (problem with in stock at [facility]) Return to clinic (in-person office visit or virtual visit/telemedicine) after all above completed fully. I spent a total of 25 minutes on the date of the service which included: *preparing to see the patient *[id number] patient care *completing clinical documentation *obtaining and/or [...] August 05, 2023 documented in this encounter [facility] 08-09-2023 Note [facility] 08-06-2023 Note [facility] 08-06-2023 Note HNO ID: [id number] Author: MARIA TERESA MURILLO MD Service: Hospital Medicine Author Type: Physician Type: Plan of Care Filed: 08/06/2023 11:50 Note Text: To review with pulmonology [facility] 08-05-2023 Note [facility] 08-05-2023 Telephone encounter Note Requested Prescriptions Pending Prescriptions Disp Refills ketamine 5% nasal spray solution (CPD) 12 mL 0 Si.1 mL/spray. Use as directed. 1 spray by nose twice per day x 3 days, then increase to 2 sprays by nose twice per day if tolerated. Added volume to account for dispenser loss. Physician office visit required for refill. [facility] 08-05-2023 Miscellaneous Notes Requested Prescriptions Pending Prescriptions Disp Refills ketamine 5% nasal spray solution (CPD) 12 mL 0 Si.1 mL/spray. Use as directed. 1 spray by nose twice per day x 3 days, then increase to 2 sprays by nose twice per day if tolerated. Added volume to account for dispenser loss. Physician office visit required for refill. documented in this encounter [facility] 08-05-2023 Note [facility] 08-04-2023 Note [facility] 08-04-2023 Note [facility] 08-04-2023 Note [facility] 08-04-2023 Telephone encounter Note Lucie from [facility] pharmacy calling regarding RX just sent in for Ketamine. He states that is not something they have or can help with at [facility]. States maybe a compounding pharmacy. So RX unavailable. [facility] 08-04-2023 Miscellaneous Notes Lucie from [facility] pharmacy calling regarding RX just sent in for Ketamine. He states that is not something they have or can help with at [facility]. States maybe a compounding pharmacy. So RX unavailable. documented in this encounter [facility] 08-04-2023 History of Presen t illness Narrative Follow up Visit Patient Name: Abbey Garcia MR #: [id number] Age: [age] year old Date: August 03, [...] SD worse than population and warrants attention Solutions Development Analyst:Nathalie Reed MA The patient is a 33-year-old [...] a soft abdomen. Patient has remarkable tenderness [place] to palpation even for very light palpation [...] her next visit documented in this encounter [facility] 08-04-2023 Note [facility] 07-20-2023 Note [facility] 07-19-2023 Note [facility] 07-18-2023 Note [facility] 07-17-2023 Consult note Note Date/Time July 17, 2023 1:56p m [facility] [address] [place] [address] General Surgery Consult Note Signed Patient: Abbey Garcia MR#: [id number] : 1990 Acct:[id number] Age/Sex: 33 / F Adm Date: 4 Loc: Room: [address] [place] [address] Type: ADM IN Attending Dr: Camden Rodriguez DO Copies to: MD Thomas Jordan MD Yazid Hussein, DO~ History of Present Illness Date of consult: 07/17/2023 Requesting/Attending Provider: Camden Rodriguez DO History of present illness: The patient is a 33-year-old female admitted with nausea and vomiting. Patient had Tan-en-Y gastric bypass procedure done 2021 at [facility]. In 2020, she had had [...] have a procedure done at [facility] in the near future. CT scan here showed:IMPRESSION: Fluid-filled distal small bowel loops without gross distention. Developing small bowel obstruction cannot be excluded Currently, patient has some nausea and some upper abdominal discomfort.. Review of Systems Constitutional Constitutional: Denies fever(s) Cardiovascular Cardiovascular: Denies chest pain Respiratory Respiratory: Denies dyspnea Gastrointestinal Gastrointestinal: Reports abdominal pain, Reports nausea and Reports vomiting [facility] Medical History Encounter for PEG (percutaneous endoscopic gastrostomy) Median arcuate ligament syndrome Spleen enlarged Problem List clean-up per request of Phys. EHR Cmte Liver cyst Problem List clean-up per request of Phys. EHR [facility] Anxiety Problem List clean-up per request of Phys. EHR [facility] Depression Problem List clean-up per request of Phys. EHR [facility] PCOS (polycystic ovarian syndrome) Problem List clean-up per request of Phys. EHR [facility] Hypothyroid Problem List clean-up per request of Phys. EHR [facility] Surgical History History of gastric bypass 01/2022 History of appendectomy Problem List clean-up per request of Phys. EHR [facility] Family History Father Hypothyroidism Mother Family history of mental disorder [facility] Pending [facility] to [facility] Problem: Diagnosed with Mental Illness Hypertension [...] Mg/0.4 Ml Syringe) 40 mg SUBCUT DAILY@10 [facility] Stop: 07/16/24 09:59 Last Admin: 07/17/23 11:23 Dose: 40 mg Escitalopram Oxalate (Escitalopram 20 Mg Tablet) 20 mg PO DAILY [facility] Stop: 07/16/24 08:59 Last Admin: 07/17/23 11:21 Dose: 20 mg Glucose (Dextrose 40% Gel 15 Gm Tube) 0 gm PO PRN PRN PRN Reason: Hypoglycemia Stop: 07/16/24 11:08 Sodium Chloride (0.9% Sodium Chloride 1,000 Ml) 1,000 mls @ 100 mls/hr IV .[id number] Stop: 07/18/24 08:59 Potassium Chloride 20 meq/ [...] 1,512.2 mls @ 63.008 mls/hr IV DAILY@1800 [facility]; Protocol Stop: 07/16/24 17:59 Fat Emulsion Intravenous 250 (ml/ IV Miscellaneous Supplies) 250 mls @ 21 mls/hr IV MOWEFR@1800 [facility] Stop: 07/18/24 17:59 Levothyroxine Sodium (Levothyroxine 75 Mcg Tablet) 75 mcg PO DAILY@0630 [facility] Stop: 07/17/24 06:29 Liothyronine Sodium (Liothyronine 5 Mcg Tablet) 5 mcg PO DAILY [facility] Stop: 07/16/24 08:59 Last Admin: 07/17/23 11:21 Dose: 5 mcg Methocarbamol (Methocarbamol 500 Mg Tablet) 500 mg PO BID [facility] Stop: 07/16/24 08:59 Last Admin: 07/17/23 11:21 [...] Appearance Clear, Urine pH 7.5, Ur Specific [place] 1.006, Urine Protein Negative, Urine Glucose (UA) [...] % (Auto) 75.6, Lymph % (Auto) 18.7, Orange % (Auto) 4.5, Eos % (Auto) 0.5, Baso % (Auto) 0.7, Nucleat RBC Rel Count 0.0, Neut # (Auto) 5.2, Lymph # (Auto) 1.3, Orange # (Auto) 0.3, Eos # (Auto) 0.0, [...] seen by her surgeon at [facility] for her GI issues status post gastric bypass surgery. Transfer to [facility] is pending. Patient currently does [...] <Electronically signed by MD Keven Kimbrough> 07/17/23 1407 [facility] Work Phone: 1(718) 840-524706-01-2024 History and physical note Author Camden Rodriguez [facility] July 17, 2023 11:19am Note Date/Time July 17, 2023 11:19 am [facility] [address] [place] [address] Hospitalist H&P Signed Patient: Abbey Garcia MR#: [id number] : 1990 Acct:[id number] Age/Sex: 33 / F Adm Date: 4 Loc: 4N Room: 5O9553-2 Type: ADM IN Attending Dr: Camden Rodriguez [...] negative unless noted below or in HPI [facility] Medical History Encounter for PEG [...] List clean-up per request of Phys. [facility] History of gastric bypass 01/2022 History of appendectomy Problem List clean-up per request of Phys. EHR Cmte Family History Father Hypothyroidism Mother Family history of mental disorder [facility] Problem: Diagnosed with Mental Illness Hypertension [...] % (Auto) 18.7 % (.) 07/16/23 15:10 Orange % (Auto) 4.5 % (.) 07/16/23 15:10 Eos % (Auto) 0.5 % (.) 07/16/23 15:10 Baso % (Auto) 0.7 % (.) 07/16/23 15:10 Nucleat RBC Rel Count 0.0 /100 WBC (0-0.5) 07/16/23 15:10 Neut # (Auto) 5.2 x10E3/uL (1.8-7.7) 07/16/23 15:10 Lymph # (Auto) 1.3 x10E3/uL (1.00-4.8) 07/16/23 15:10 Orange # (Auto) 0.3 x10E3/uL (0.0-0.8) 07/16/23 15:10 [...] pH 7.5 (5.0-9.0) 07/16/23 15:21 Ur Specific [place] 1.006 (1.001-1.030) 07/16/23 15:21 Urine Protein Negative [...] signed by Camden Rodriguez DO> 07/17/23 1119 [facility] Work Phone: 1(338) 608-345305-30-2024 [facility] Telephone encounter Note* Telephone Encounter - Natalie [...] have family/friend present for procedure transport home: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 Any barriers to Patient learning: Patient/Patient School Photograph Editor responded appropriately on phone. Type of instruction given: Verbal by telephone contact. Natalie Alarcon LPN [facility]05-28-2024 Miscellaneous Notes* Telephone Encounter - Natalie [...] have family/friend present for procedure transport home: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 Any barriers to Patient learning: Patient/Patient School Photograph Editor responded appropriately on phone. Type of instruction given: Verbal by telephone contact. Natalie Alarcon LPN documented in [facility]Ad[facility]24 Note [id number] 07-09-2023 NoteHNO ID: [id number] Author: PABLO LEBRON PSYD Service: ? Author Type: Psychologist Type: Progress Notes Filed: 07/09/2023 09:26 Note Text: Assessment was conducted virtually. Patient is a resident of [place], and completed the assessment virtually in [place]. Psychologist is licensed and stationed in [place]. Informed consent was discussed and verbal assent [...] exercise, positive self-talk). Sources of support (, sagdxv-oy-uqs, brothers, grandfather). OBJECTIVE: Utilized cognitive behavioral and [...] positive self-talk) and sources of support (, yekeeb-pe-vkx, brothers, grandfather). Pt requests to end session early due to childcare needs. DIAGNOSIS: PRIMARY: 1: Depression, Controlled Generalized Anxiety Disorder Situational Stress PROVISIONAL: Unspecified trauma and stressor related disorder TREATMENT MODALITIES: Cognitive Behavioral Therapy to behavior modifications, cognitive restructuring, self monitoring and increasing pleasurable activities, Solution Focused Psychotherapy, Supportive Therapy PROGRESS TO DATE: Group Home Progress: Stable Short Term Condition: Stable GOALS/OBJECTIVES/INTERVENTIONS: To identify and implement tools for effectively managing symptoms of anxiety, stress, and low mood. Approximately 15 minutes were spent with the patient doing therapy. [facility] History of Present illness Narrative* Pablo Lebron, [facility] - 07/09/2023 8:57 AM EDT Assessment was conducted virtually. Patient is a resident of [place], and completed the assessment virtually in [place]. Psychologist is licensed and stationed in [place]. Informed consent was discussed and verbal assent [...] exercise, positive self-talk). Sources of support (, lrxmbi-mg-oit, brothers, grandfather). OBJECTIVE: Utilized cognitive behavioral and [...] positive self-talk) and sources of support (, dokpcl-cm-wcy, brothers, grandfather). Pt requests to end session early due to childcare needs. DIAGNOSIS: PRIMARY: 1: Depression, Controlled Generalized Anxiety Disorder Situational Stress PROVISIONAL: Unspecified trauma and stressor related disorder TREATMENT MODALITIES: Cognitive Behavioral Therapy to behavior modifications, cognitive restructuring, self monitoring and increasing pleasurable activities, Solution Focused Psychotherapy, Supportive Therapy PROGRESS TO DATE: Portainer Operator Progress: Stable Short Term Condition: Stable GOALS/OBJECTIVES/INTERVENTIONS: To identify and implement tools for effectively managing symptoms of anxiety, stress, and low mood. Approximately 15 minutes were spent with the patient doing therapy. Pablo Lebron PsyD documented in this encounterAd[facility]05-[facility]-2024 [facility] Nurse Note* Rosanna Blanco OCCA - 07/06/2023 1:55 PM EDT Post Void Residual done on patient with 8 cc residual volume remaining. MD notified. ALLISON Schreiber [facility]05-21-2024 Nurse Note* Rosanna Blanco OCCA - 07/06/2023 1:55 PM EDT Post Void Residual done on patient with 8 cc residual volume remaining. notified. ALLISON Schreiber documented in this encounterAdams [facility]05-[facility]-2024 History of Present illness Narrative* Francisco J Steve MD - 07/06/2023 1:40 PM EDT [facility] FEMALE PELVIC MEDICINE AND RECONSTRUCTIVE SURGERY PATIENT HISTORY AND PHYSICAL EXAM PATIENT INFO: Abbey Garcia is a 33 year old female. REFERRING M.D.: Marcos Moreno [address] [place] [address] [place] [id number] [address] Moreno for an [...] having recent UTI, that was treated at [facility] (although no records seen of this) and that she required a long catheter for two weeks due to high amounts in her bladder. No recent dysuria or hematuria. Does endorse some left flank pain. History of three C-sections, no vaginal deliveries QUESTIONNAIRE: Questionnaire: [facility] Ambulatory Visit Intake Questionnaire Question Answer Have [...] you will be given? No Questionnaire: [facility] Additional Demo Question Answer Is this visit related to an accident, other than Workers' Compensation? No Is this visit related to Workers' Compensation? No Do you need an acid extractor? No Questionnaire: [facility] Female Pelvic Medicine Base Question Answer [...] (Non-Steroidal Anti-Inflammatory Drug) PHYSICAL EXAM: VITAL SIGNS: [facility] 08/19/2020 PHYSICAL EXAM General: Patient in no [...] for her OAB, and instructed her to lemon picker and use whicheveris cheapest at the pharmacy. [...] Level: 4 - Moderate documented in this encounterAdams [facility]05-21-2024 [facility]Main [facility]05-18-2024 Nurse Note* Tory Mcmullen RN - 07/03/2023 2:27 PM EDT Reviewed discharge with patient, all questions answered, aware of appointments ride downstairs. Pegfeedings stopped and flushed prior to clamping. Patient TPN stopped PICC flushed patient to leave with PICC [facility]05-18-2024 Nurse Note* Tory Mcmullen RN - [...] lumen picc, per patient was placed at [facility] about a month ago for TPN [...] call light within reach. documented in this [facility] Work Phone: 1(972) 920-458205-18-2024 Nurse Note* Tory Mcmullen RN - 07/03/2023 2:11 PM EDT Long removed per orders, discharge prepared at this time. [facility] Work Phone: 1(504) 269-583805-18-2024 History of Present illness Narrative* Dolores Cox MD - 07/03/2023 12:22 PM EDT Abbey Garcia is a 33 y.o. female on day 3 of admission presenting with Epigastric pain. Subjective She presented to the hospital with abdominal pain. She had previously undergone laparoscopic sleeve gastrectomy, on 09/03/2020 at the [facility]. She has a gastrojejunostomy tube. She [...] medication and antiemetic. [facility]. Dolores Cox MD * Fadumo Edge RDN, LD - 07/02/2023 2:23 PM EDT Nutrition Progress Note messaged me for tube feed recommendations. Pt is now receiving tube feed and TPN. Nutrition Interventions and Recommendations: Nutrition Prescription: Individualized Nutrition Prescription Provided for : 3821-6444 kcals, 59-71 gm protein via parentaland enteral [...] home. Patient was active with RN from [facility] prior to admission. Patient would like to continue with their services post discharge. External referral already placed and sent to [facility]. [facility] will need to be notified via [facility]Port at the time of discharge. Will follow. 07/02/23 1049 Discharge Planning Home or Post Acute Services In home services Type of Home Care Services Home nursing visits Patient expects to be discharged to: Home with [facility] Does the patient need discharge transport arranged? [...] line position verification COMPARISON: 03/17/2023 ACCESSION NUMBER(S): [id number] ORDERING CLINICIAN: DOLORES COX TECHNIQUE: Single AP view chest FINDINGS: Cardiomediastinal silhouette is within normal limits. Right-sided PICC line identified with tip in the region of the mid SVC. No infiltrate or effusion is identified. Visualized osseous structures unremarkable. Impression: 1. Right PICC line placement with tip in the mid SVC. 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 Report Amended Report Amended By: [id number] Magaña MD Date and Time: 06/30/2023 at [...] PSV 89 cm/s KEELY PSV 105 cm/s [id number] Magaña MD Brandy Magaña MD Electronically Amended [...] patient follow up with Dr. Morel at [facility] for intestinal rehab Start trickle TF today Continue TPN Stop tramadol, switch to percocet as patient has been on this in the past Continue IV morphine for breakthrough pain Zofran PRN Asthma Stable, not in exacerbation HTN Stable Hypothyroidism Continue home synthroid GERD Continue PPI Dispo: if patient is tolerating TF and symptoms are improved tomorrow, will plan to discharge home with [facility]. Kina Ann MD * Shelley Nash, [employer]TER[employer]TER - 07/01/2023 2:37 PM EDT Abbey Garcia [...] GI rehab program as previously recommended at [facility]. GS will sign off. I spent 15 minutes in the professional and overall care of this patient. JAMA Greenberg * Zoey Blanco RN - 07/01/2023 12:50 PM EDT Patient not medically clear. TCC met with patient to discuss discharge plans. Patient active with [facility] and would like to continue with RN only. External referral [facility]. Will follow. 07/01/23 1250 Discharge Planning Home or Post Acute Services In home services Type of Home Care Services Home nursing visits Patient expects to be discharged to: Home with [facility] Does the patient need discharge transport arranged? 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 Report Amended Report Amended By: [id number] Magaña MD Date and Time: 06/30/2023 at [...] PSV 89 cm/s KEELY PSV 105 cm/s [id number] Magaña MD Brandy Magaña MD Electronically Amended [...] Audie Gutierrez 06/30/2023 12:06 PM Dictation workstation: [id number] CT abdomen pelvis wo IV contrast Result Date: 06/29/2023 Interpreted By: Fly West, STUDY: CT ABDOMEN PELVIS WO IV CONTRAST; 06/29/2023 11:09 pm INDICATION: Signs/Symptoms:Abdominal pain. COMPARISON: 03/16/2023 ACCESSION NUMBER(S): [id number] ORDERING CLINICIAN: DAVID VALADEZ TECHNIQUE: Axial CT [...] Fly West 06/29/2023 11:53 PM Dictation workstation: [id number] CT abdomen pelvis w IV contrast Result [...] Trace ascites, also present on previous exams Financial Aid Coordinator: PSCB Transcribe Date/Time: Jun 18 2023 3:00P Dictated by : KYLE HERNANDEZ MD This examination was interpreted and the report reviewed and electronically signed by: KYLE HERNANDEZ MD on Jun 18 2023 3:30PM EST CT abdomen pelvis w IV contrast Result Date: 06/06/2023 * * *Final Report* * * DATE OF EXAM: Jun 06 2023 5:47PM [facility] 0530 - CT ABD/PEL W [...] PROCESS. NO SIGNIFICANT INTERVAL CHANGE SINCE 12/06/2022. Financial Aid Coordinator: PSCOfelia Transcribe Date/Time: Jun 06 2023 7:08P [...] vascular cause. Recommend following up with the [facility] for intestinal rehab as recommended by [...] laparoscopic sleeve gastrectomy, on 09/03/2020 at the [facility]. She has a gastrojejunostomy tube. She [...] RN - 06/30/2023 4:43 PM EDT 06/30/23 3203 Current Planned Discharge Disposition Current Planned Discharge [...] RN - 06/30/2023 4:41 PM EDT 06/30/23 6359 Physical Activity On average, how many days [...] relatives? Twice How often do you attend restorationist or evangelical services? More than 4 Do you belong to any clubs or organizations such as restorationist groups, unions, fraternal or athletic groups, or [...] In the past 12 months has the [employer], [employer], [employer], or water [employer] threatened to shut off services in your [...] laparoscopic sleeve gastrectomy, on 09/03/2020 at the [facility]. She had a gastrojejunostomy tube. She [...] TPN for nutrition. Symptomatic pain management. Dolores Cox MD * Mariela Tesfaye, PharmD - 06/30/2023 10:31 AM EDT Pharmacy Medication History Review Abbey Garcia is a 33 y.o. female admitted for Epigastric pain. Pharmacy reviewed the patient's gszal-wz-xymjzslmq medications and allergies for accuracy. Medications ADDED: Methocarbamol 750 mg TID Medications CHANGED: Buspirone 10 mg Mirtazapine 30 mg Miralax Topiramate 100 mg Medications REMOVED: Diazepam 5 mg Percocet 5 mg/325 mg The list below reflects the updated BLOCKLAYER list. Comments regarding how patient may be [...] Low Nausea/vomiting Pharmacy has been updated to [facility]. Sources used to complete the med history include patient interview, BLOCKLAYER list, dispense history Below are additional concerns with the patient's BLOCKLAYER list. -Pt is no longer taking diazepam or Percocet -Added methocarbamol 750 mg TID -Buspirone, mirtazapine, Miralax and topiramate doses have changed Mariela Tesfaye PharmD Please reach out via [employer] Secure Chat for questions * Sherry Magaña [...] Dr. Deacon Kat, her general surgeon at [facility]. The plan from them is a referralto [facility] intestinal rehabilitation. Patient to follow up with Dr. Kats office. 06/30/23 at 8:28 AM - Sherry Magaña MD Addendum: There is conclusively no vascular etiology for patient's current pain syndrome. Needs to be referred ultimately to Dr. Deacon Kat and Intestinal Rehab unit at [facility] after stabilization. Duplex shows no compression of celiac axis or internal lesions. There is no stenosis of the celiac axis or SMA. CTA reviewed. No vascular compression documented in this [facility] Work Phone: 1(211) [phone] Plan of care note* Care Plan - [...] monitored and maintained or improved Outcome: Progressing [facility] Work Phone: [phone]) 587-960305-18-2024 Miscellaneous Notes* Care Plan - Tory Mcmullen [...] no hearing aids. Her PCP is in [facility]; and she uses [facility] [address] in [facility]. She has a hx of gastric bypass, c/o abd pain. No anticipated discharge needs. DISCHARGE PLAN: HOME WITH documented [facility] Work Phone: 1([phone]) 519-703405-18-2024 Nurse Note* Tory Mcmullen RN - 07/03/2023 8:16 AM EDT Assumed care of patient at this time, patient is resting in bed with brake in place and call light in reach denies any needs [facility] Work Phone: [phone] 550-150405-18-2024 Nurse Note* Grecia Schaffer RN - 07/03/2023 6:49 AM EDT Chg bath performed by this nurse. Gown and linens changed. Pt ambulated to the bathroom, pt reportsliquid dark, black stool ( not witnessed by nurse). [facility]05-17-2024 Plan of care note* Care Plan [...] did make progress toward the following goals. [facility] Work Phone: [phone]) 899-385705-17-2024 Nurse Note* Yue Ferris RN - 07/02/2023 12:00 PM EDT Upon rounding right upper arm dual lumen PICC with current CHG dressing dry and intact. One port inuse, one with brisk blood return and flushes easily, clamped and Curos cap intact. T [facility]05-16-2024 Plan of care note* Care Plan [...] monitored and maintained or improved Outcome: Progressing [facility]05-16-2024 Nurse Note* Edilia Darby RN - 07/01/2023 1:56 PM EDT CXR from today verifies picc tip in mid SVC. [facility]05-16-2024 Nurse Note* Edilia Darby RN - 07/01/2023 12:48 PM EDT Patient with Rt arm dual lumen picc, per patient was placed at [facility] about a month ago for TPN [...] tip placement is needed. RN to message [facility] Work Phone: 1([phone]) 380-259105-16-2024 Consult note* Fadumo Edge RDN, SALVADOR - [...] renal failure superimposed on chronic kidney disease ([facility]) 06/29/2023 Anxiety Arthritis Asthma ([facility]) CPAP (continuous positive airway pressure) dependence Depression Disease of thyroid gland Dizziness GERD (gastroesophageal reflux disease) Hypothyroidism Irritable bowel syndrome with constipation Median arcuate ligament syndrome ([facility]) PCOS (polycystic ovarian syndrome) PONV (postoperative [...] Energy Needs Total Energy Estimated Needs (kCal): (1052-3216) Total Estimated Energy Need per Day (kCal/kg): (25-30) Method for Estimating Needs: ABW Estimated Protein Needs Total Protein Estimated Needs (g): (59-71) Total Protein Estimated Needs (g/kg): (1-1.2) Method for Estimating Needs: ABW Estimated Fluid Needs Total Fluid Estimated Needs (mL): (9876-8886) Method for Estimating Needs: 1 mL/kcal Nutrition Diagnosis Nutrition Diagnosis: Nutrition Diagnosis Patient has Nutrition Diagnosis: Yes Diagnosis Status (1): New Nutrition Diagnosis 1: Altered GI function Related to (1): physiological causes As Evidenced by (1): need for TPN, cannot tolerate PO/ tube feed Nutrition Interventions/Recommendations Nutrition Interventions and Recommendations: Nutrition Prescription: Individualized Nutrition Prescription Provided for : 5997-4255 kcals, 59-71 gm protein via parentalnutrition Nutrition [...] Needed?: 3-5 days Follow up Comment: 07/05/23 [facility] Work Phone: [phone]) [phone] Consult note* Fadumo Edge RDN, LD - [...] renal failure superimposed on chronic kidney disease ([facility]) 06/29/2023 Anxiety Arthritis Asthma ([facility]) CPAP (continuous positive airway pressure) dependence Depression Disease of thyroid gland Dizziness GERD (gastroesophageal reflux disease) Hypothyroidism Irritable bowel syndrome with constipation Median arcuate ligament syndrome ([facility]) PCOS (polycystic ovarian syndrome) PONV (postoperative [...] Energy Needs Total Energy Estimated Needs (kCal): (5541-3975) Total Estimated Energy Need per Day (kCal/kg): (25-30) Method for Estimating Needs: ABW Estimated Protein Needs Total Protein Estimated Needs (g): (59-71) Total Protein Estimated Needs (g/kg): (1-1.2) Method for Estimating Needs: ABW Estimated Fluid Needs Total Fluid Estimated Needs (mL): (0453-9581) Method for Estimating Needs: 1 mL/kcal Nutrition Diagnosis Nutrition Diagnosis: Nutrition Diagnosis Patient has Nutrition Diagnosis: Yes Diagnosis Status (1): New Nutrition Diagnosis 1: Altered GI function Related to (1): physiological causes As Evidenced by (1): need for TPN, cannot tolerate PO/ tube feed Nutrition Interventions/Recommendations Nutrition Interventions and Recommendations: Nutrition Prescription: Individualized Nutrition Prescription Provided for : 6280-8308 kcals, 59-71 gm protein via parentalnutrition Nutrition [...] for which she follows a surgeon at [facility]. They have been trying to advance [...] renal failure superimposed on chronic kidney disease ([facility]) (06/29/2023), Anxiety, Arthritis, Asthma ([facility]), CPAP (continuous positive airway pressure) dependence, Depression, Disease of thyroid gland, Dizziness, GERD (gastroesophageal reflux disease), H ypothyroidism, Irritable bowel syndrome, Median arcuate ligament syndrome ([facility]), PCOS (polycystic ovarian syndrome), PONV (postoperative nausea and vomiting), PUD (peptic ulcer disease), and Shortness of breath. She has no past medical history of Autoimmune disorder ([facility]), Bipolar disorder (Multi), BPH (benign prostatic hyperplasia), Cerebral aneurysm ([facility]), Cervical cancer (Multi), Cervical disc disease, Chronic kidney disease, CKD (chronic kidney disease), Cognitive decline, Crohn's disease (Multi), Dementia (Multi), Dysphagia, Endometrial cancer (Multi), Esophageal cancer (Multi), Esophageal disease, ESRD (end stage renal disease) (Multi), Fibromyalgia, primary, Fractures, Gastric cancer (Multi), Gender dysphoria, GI (gastrointestinal bleed), Hemodialysis status ([facility]), Hernia, internal, H istory of peritoneal dialysis, [...] Yellow, Dark-Yellow Appearance, Urine Clear Clear Specific [place], Urine 1.023 1.005 - 1.035 pH, Urine [...] Audie Gutierrez 06/30/2023 12:06 PM Dictation workstation: [id number] Vascular US mesenteric artery duplex complete Result Date: 06/30/2023 Preliminary Cardiology Report [facility] [id number] [place], [place] [address] Preliminary Vascular Lab Report VASC US MESENTERIC ARTERY DUPLEX COMPLETE Patient Name: ABBEY FloresRenetta JOSE Reading Physician: [id number] hSerry Magaña MD Study Date: 06/30/2023 Ordering Provider: [id number] JAMIL GAVIN MRN/PID: [id number] Fellow: Technologist: Leia Degroot RVT Date of : 1990 Technologist 2: Gender: F Admission Status: Inpatient Location Performed: [facility] 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 COMPARISON: 03/16/2023 ACCESSION NUMBER(S): [id number] ORDERING CLINICIAN: DAVID VALADEZ TECHNIQUE: Axial CT [...] Fly West 06/29/2023 11:53 PM Dictation workstation: [id number] Assessment/Plan Abdominal pain FTT 33-year-old female with complicated history after gastric bypass surgery. She has been working witha surgeon at [facility] to advance her tube feeds and oral intake and decrease the TPN, however this has been unsuccessful. She was evaluated by Dr. Magaña here and there is no evidence of celiac or SMA stenosis or compression. There is an intestinal rehabilitation program through [facility] and recommend follow-up with that program. [...] nausea aftera gastric bypass surgery done at [facility] in which she has been hospitalized multiple [...] CREATININE 0.60 06/30/2023 * Tiffanie Galvan Mary[place], COAL CUTTER-MINI SHIFTER - 06/30/2023 8:31 AM EDTAssociated Order(s): IP CONSULT TO VASCULAR SURGERY Reason for Consult Mid epigastric abdominal pain History Of Present Illness This is a 33-year-old female with past medical history of chronic abdominal pain, PCOS, PUD, depression, GERD, IBS, obesity (status post laparoscopic sleeve gastrectomy in August [address] Ku hanZyrr-ok-N gastric bypass 01/29/[address] Kat) and median arcuate ligament syndrome who presented to the emergency department for further evaluation of mid epigastric abdominal pain and nausea. Jonh jose follows with GI and general surgery with the [facility] and is currently on TPN via [...] also spoke with her general surgeon at [facility] where patient was advised for referral to [facility] intestinal rehabilitation. Past Medical History Past Medical History: Diagnosis Date Acute renal failure superimposed on chronic kidney disease ([facility]) 06/29/2023 Anxiety Arthritis Asthma ([facility]) CPAP (continuous positive airway pressure) dependence Depression Dizziness GERD (gastroesophageal reflux disease) Hypothyroidism Irritable bowel syndrome with constipation Median arcuate ligament syndrome ([facility]) PCOS (polycystic ovarian syndrome) PONV (postoperative nausea [...] Insecurity: No Food Insecurity (06/07/2023) Received from [facility] Hunger Vital Sign Worried About Running Out of Food in the Last Year: Never true Ran Out of Food in the Last Year: Never true Transportation Needs: No Transportation Needs (06/07/2023) Received from [facility] PRAPARE - Transportation Lack of Transportation (Medical): No Lack of Transportation (Non-Medical): No Physical Activity: Insufficiently Active (10/28/2022) Received from [facility] Exercise Vital Sign Days of Exercise per Week: 4 days Minutes of Exercise per Session: 30 min Stress: Stress Concern Present (10/28/2022) Received from [facility] [place] [place] [facility] [employer] [facility] - Occupational Stress Questionnaire Feeling of Stress : To some extent Social Connections: Socially Integrated (10/28/2022) Received from [facility] Social Connection and Isolation Panel [NHANES] Frequency of Communication with Friends and Family: More than three times a week Frequency of Social Gatherings with Friends and Family: Once a week Attends Sikhism Services: 1 to 4 times per year Active Member of Clubs or Organizations: Yes Attends Club or Organization Meetings: More than 4 times per year Marital Status: Intimate Partner Violence: Not on file Housing Stability: Low Risk (06/07/2023) Received from [facility] Housing Stability Vital Sign Unable to Pay for Housing in the Last Year: No Number of Places Lived in the Last Year: 1 Unstable Housing in the Last Year: No Family History Family History Problem Relation Name Age of Onset Diabetes Mother Jessica Artino Hypertension Mother Jesscia Artino Cancer Maternal Grandfather Cedrick Kraus COPD [...] Yellow, Dark-Yellow Appearance, Urine Clear Clear Specific [place], Urine 1.023 1.005 - 1.035 pH, Urine [...] INDICATION: Signs/Symptoms:Abdominal pain. COMPARISON: 03/16/2023 ACCESSION NUMBER(S): [id number] ORDERING CLINICIAN: DAVID VALADEZ TECHNIQUE: Axial CT [...] Fly West 06/29/2023 11:53 PM Dictation workstation: [id number] Physical exam Constitutional: Alert and oriented to [...] for episodes of hypoglycemia documented in this [facility] Work Phone: 1(364) 510-978905-16-2024 Nurse Note* Mayda Balbuena LPN - 07/01/2023 2:30 AM EDT Pt alert and oriented, long intact, clear yellow urine , medicated twice for left epigastric pain with somewhat effect, TPN running at 83ml/hr, tolerating well, no sign of adverse reaction, pt remain NPO , sips with meds, pt in no acute distress, all safety measures in place, call light within reach. [facility]05-15-2024 Plan of care note* Care Plan - Mayda Balbuena LPN - 06/30/2023 10:12 PM EDT The patient's goals for the shift include feel better The clinical goals for the shift include pain control [facility] Work Phone: 1(214) 833-675305-15-2024 Consult note* Tomasa Ortiz MD - 06/30/2023 [...] for which she follows a surgeon at [facility]. They have been trying to advance [...] renal failure superimposed on chronic kidney disease ([facility] [place]) (06/29/2023), Anxiety, Arthritis, Asthma ([facility]), CPAP (continuous positive airway pressure) dependence, Depression, Disease of thyroid gland, Dizziness, GERD (gastroesophageal reflux disease), H ypothyroidism, Irritable bowel syndrome, Median arcuate ligament syndrome ([facility]), PCOS (polycystic ovarian syndrome), PONV (postoperative nausea and vomiting), PUD (peptic ulcer disease), and Shortness of breath. She has no past medical history of Autoimmune disorder ([facility]), Bipolar disorder ([facility]), BPH (benign prostatic hyperplasia), Cerebral aneurysm ([facility]), Cervical cancer ([facility]), Cervical disc disease, Chronic kidney disease, CKD (chronic kidney disease), Cognitive decline, Crohn's disease ([facility]), Dementia ([facility]), Dysphagia, Endometrial cancer ([facility]), Esophageal cancer ([facility]), Esophageal disease, ESRD (end stage renal disease) ([facility]), Fibromyalgia, primary, Fractures, Gastric cancer ([facility]), Gender dysphoria, GI (gastrointestinal bleed), Hemodialysis status ([facility] [place]), Hernia, internal, H istory of peritoneal dialysis, HIV disease ([facility]), Immunocompromised ([facility]), Liver disease, Lumbar disc disease, Mastocytosis, MS (multiple sclerosis) ([facility]), Muscular dystrophy (Multi), Myasthenia gravis (Multi), Neuromuscular disorder (Multi), Ovarian cancer ([facility]), Pancreatitis ([facility]), Peptic ulcer disease, Prematurity ([facility]), PTSD (post-traumatic stress disorder), Schizophrenia (Multi), Seizure [...] Yellow, Dark-Yellow Appearance, Urine Clear Clear Specific [place], Urine 1.023 1.005 - 1.035 pH, Urine [...] Audie Gutierrez 06/30/2023 12:06 PM Dictation workstation: [id number] Vascular US mesenteric artery duplex complete Result Date: 06/30/2023 Preliminary Cardiology Report [facility] [id number] [place], [place] [address] Preliminary Vascular Lab Report VASC US MESENTERIC ARTERY DUPLEX COMPLETE Patient Name: ABBEYHECTOR GARCIA Reading Physician: [id number] Sherry Magaña MD Study Date: 06/30/2023 Ordering Provider: [id number] JAMIL GAVIN MRN/PID: [id number] Fellow: Technologist: Leia Degroot RVT Date of : 1990 Technologist 2: Gender: F Admission Status: Inpatient Location Performed: [facility] 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 COMPARISON: 03/16/2023 ACCESSION NUMBER(S): [id number] ORDERING CLINICIAN: DAVID VALADEZ TECHNIQUE: Axial CT [...] Fly [place] 06/29/2023 11:53 PM Dictation workstation: [id number] Assessment/Plan Abdominal pain FTT 33-year-old female with complicated history after gastric bypass surgery. She has been working witha surgeon at [facility] to advance her tube feeds and oral intake and decrease the TPN, however this has been unsuccessful. She was evaluated by Dr. Magaña here and there is no evidence of celiac or SMA stenosis or compression. There is an intestinal rehabilitation program through [facility] and recommend follow-up with that program. Cont TPN for nutrition and PO/tube feeds as tolerated in the meantime Tomasa Ortiz MD T [facility] Work Phone: 1(515) 746-289505-15-2024 Plan of care note* Care Plan - [...] no hearing aids. Her PCP is in [facility]; and she uses [facility] [address] in [facility]. She has a hx of gastric bypass, c/o abd pain. No anticipated discharge needs. DISCHARGE PLAN: HOME WITH T [facility] Work Phone: 1(990) 958-258505-15-2024 Consult note* JAMA Solis - 06/30/2023 11:27 [...] nausea aftera gastric bypass surgery done at [facility] in which she has been hospitalized multiple [...] 06/30/2023 BUN 14 06/30/2023 CREATININE 0.60 06/30/2023 [facility] Work Phone: [phone]) 286-703105-15-2024 Consult note* JAMA Judd - 06/30/2023 8:31 AM EDTAssociated Order(s): IP CONSULT TO VASCULAR SURGERY Reason for Consult Mid epigastric abdominal pain History Of Present Illness This is a 33-year-old female with past medical history of chronic abdominal pain, PCOS, PUD, depression, GERD, IBS, obesity (status post laparoscopic sleeve gastrectomy in August [address] Ku pgtWkej-fi-X gastric bypass 01/29/[address] Kat) and median arcuate ligament syndrome who presented to the emergency department for further evaluation of mid epigastric abdominal pain and nausea. Jonh jose follows with GI and general surgery with the [facility] and is currently on TPN via [...] also spoke with her general surgeon at [facility] where patient was advised for referral to [facility] intestinal rehabilitation. Past Medical History Past Medical History: Diagnosis Date Acute renal failure superimposed on chronic kidney disease ([facility]) 06/29/2023 Anxiety Arthritis Asthma ([facility]) CPAP (continuous positive airway pressure) dependence Depression Dizziness GERD (gastroesophageal reflux disease) Hypothyroidism Irritable bowel syndrome with constipation Median arcuate ligament syndrome ([facility]) PCOS (polycystic ovarian syndrome) PONV (postoperative nausea [...] Insecurity: No Food Insecurity (06/07/2023) Received from [facility] Hunger Vital Sign Worried About Running Out of Food in the Last Year: Never true Ran Out of Food in the Last Year: Never true Transportation Needs: No Transportation Needs (06/07/2023) Received from [facility] PRAPARE - Transportation Lack of Transportation (Medical): No Lack of Transportation (Non-Medical): No Physical Activity: Insufficiently Active (10/28/2022) Received from [facility] Exercise Vital Sign Days of Exercise per Week: 4 days Minutes of Exercise per Session: 30 min Stress: Stress Concern Present (10/28/2022) Received from [facility] [place] [place] [employer] - Occupational Stress Questionnaire Feeling of Stress : To some extent Social Connections: Socially Integrated (10/28/2022) Received from [facility] Social Connection and Isolation Panel [NHANES] Frequency of Communication with Friends and Family: More than three times a week Frequency of Social Gatherings with Friends and Family: Once a week Attends Sikhism Services: 1 to 4 times per year Active Member of Clubs or Organizations: Yes Attends Club or Organization Meetings: More than 4 times per year Marital Status: Intimate Partner Violence: Not on file Housing Stability: Low Risk (06/07/2023) Received from [facility] Housing Stability Vital Sign Unable to [...] Yellow, Dark-Yellow Appearance, Urine Clear Clear Specific [place], Urine 1.023 1.005 - 1.035 pH, Urine [...] INDICATION: Signs/Symptoms:Abdominal pain. COMPARISON: 03/16/2023 ACCESSION NUMBER(S): [id number] ORDERING CLINICIAN: DAVID VALADEZ TECHNIQUE: Axial CT [...] Fly [place] 06/29/2023 11:53 PM Dictation workstation: [id number] Physical exam Constitutional: Alert and oriented to [...] Needs further workup for episodes of hypoglycemia [facility] Work Phone: 1(352) 579-549405-15-2024 Emergency department Note* Carla Alejo LPN - 06/30/2023 6:43 AM EDT Patient in gown at this time no c/o pain or discomfort no needs made known at this time Patient sleeping, chest rises and falls at equal intervals and patient takes breaths. Responds verbaly to calling of name and acknowledges this nurses presence in room Carla Alejo LPN 06/30/23 0645 [facility]05-15-2024 Emergency department Note* Carla Alejo LPN [...] orchills. No chest pain. No other complaints. [place] Coma Scale Score: 15 Patient History Past Medical History: Diagnosis Date Acute renal failure superimposed on chronic kidney disease ([facility]) 06/29/2023 Anxiety Arthritis Asthma ([facility]) CPAP (continuous positive airway pressure) dependence Depression Dizziness GERD (gastroesophageal reflux disease) Hypothyroidism Irritable bowel syndrome with constipation Median arcuate ligament syndrome ([facility]) PCOS (polycystic ovarian syndrome) PONV (postoperative [...] interpretation: Sinus rhythm 59 bpm normal axis WA interval 140 QTc 453 no ectopy or [...] physician verbal order Carla Alejo LPN 06/29/23 7485 [facility] Phone: 1(224) 336-681705-15-2024 Emergency department Note* Carla Alejo LPN - 06/30/2023 5:48 AM EDT Patient vitals taken, labs drawn and sent and patient medicated for pain , vitals taken and charted, no c/o discomfort or other needs at this time Carla Alejo LPN 06/30/23 0549 [facility] Work Phone: 1([phone]) [phone] History and physical note* Baldomero Woodard MD - 06/30/2023 2:40 AM EDT History Of Present Illness Abbey Garcia is a 33 y.o. female presenting with 2-year history of abdominal pain and nausea after a gastric bypass surgery done at [facility] she has been hospitalized multiple times for this. She has a combination gastric tube jejunostomy tube which is supposed to be used for tube feeds she is on TPN. She has a surgeon at [facility] but she also sees Dr. Magaña vascular [...] get her nausea under control with Reglan oftbk-xdk-rysyc will consult general surgery to help with this complicated acute on chronic situation will order subcu heparin IV Protonix will make sure her gastric tube in her J- tube gets flushed. 3 times a day will order most of her home meds the way she takes them at home either by mouth or for through the J-tube. Baldomero Woodard MD [facility] Work Phone: 1([phone]) 425-674605-15-2024 History and physical note* Baldomero Woodard MD - 06/30/2023 2:40 AM EDT History Of Present Illness Abbey Garcia is a 33 y.o. female presenting with 2-year history of abdominal pain and nausea after a gastric bypass surgery done at [facility] she has been hospitalized multiple times for this. She has a combination gastric tube jejunostomy tube which is supposed to be used for tube feeds she is on TPN. She has a surgeon at [facility] but she also sees Dr. Magaña vascular [...] get her nausea under control with Reglan hyuci-nkb-subhd will consult general surgery to help with this complicated acute on chronic situation will order subcu heparin IV Protonix will make sure her gastric tube in her J- tube gets flushed. 3 times a day will order most of her home meds the way she takes them at home either by mouth or for through the J-tube. Baldomero Woodard MD documented in this [facility] Work Phone: [phone]) 335-490605-14-2024 Emergency department Note* Carla Rodriguezreginald, DIANE - 06/29/2023 8:57 PM EDT Assumed care of patient , labs drawn originally while tpn was attached and running , blood glucose redone via fingerstick with result of 117 and cbc/bmp reordered STAT , drawn and sent to lab Carla Alejo LPN 06/29/232057 [facility] Work Phone: 1(805) 912-684505-14-2024 Emergency department Note* Carla Alejo LPN - 06/29/2023 5:37 PM EDT medications held at this time per ED physician verbal order Carla Alejo LPN 06/29/232 [facility] Work Phone: [phone]) [phone] Physician Emergency department Note* David Valadez, - [...] orchills. No chest pain. No other complaints. [place] Coma Scale Score: 15 Patient History Past Medical History: Diagnosis Date Acute renal failure superimposed on chronic kidney disease ([facility]) 06/29/2023 Anxiety Arthritis Asthma ([facility]) CPAP (continuous positive airway pressure) dependence Depression [...] interpretation: Sinus rhythm 59 bpm normal axis [place] interval 140 QTc 453 no ectopy or [...] admission. Procedure Procedures David Valadez DO 06/30/23243 [facility] Work Phone: 1(364) [phone] History of Present illness Narrative* Sherry Magaña MD - 06/22/2023 11:45 AM EDT Patient and I had a video conference as she was at home in [place] and I was at the [facility] [place]. She reports doing poorly with bouts of [...] conference was 10 minutes [facility] Work Phone: [phone]) 103-192005-03-2024 Note [id number] History of Present illness Narrative* Breanna Stern APRN.MINI SHIFTER - 06/18/2023 10:00 AM EDT Assessment Postoperative [...] Kat Follow up with Dr Shey Stern APRN.MINI SHIFTER [facility]* Yaneth Mitchell MA - 06/18/2023 9:35 AM EDT What is the reason for your visit today? Post op PEG-J placement Who is your referring physician? Are you having poor oral intake? YES Have you had unintentional weight loss of 15 lbs/7 Kg in the last 3-6 months? NO Bowels: diarrhea Wound: Temperature: No Drains: No [facility]05-03-2024 Nurse Note* Yaneth Mitchell MA - 06/18/2023 9:35 AM EDT What is the reason for your visit today? Post op PEG-J placement Who is your referring physician? Are you having poor oral intake? YES Have you had unintentional weight loss of 15 lbs/7 Kg in the last 3-6 months? NO Bowels: diarrhea Wound: Temperature: No Drains: No documented in this [facility]Ad[facility]05-[facility]24 Telephone encounter Note * Telephone Encounter [...] with scheduling provider for ketamine refill appt. [facility]05-02-2024 Miscellaneous Notes* Telephone Encounter - Clarence [...] for ketamine refill appt. documented in this encounterAd[facility]05-[facility]24 Telephone encounter Note * Telephone Encounter - Serena Neff - 06/17/2023 11:40 AM EDT Phoned Malka back with Dr. Kat's response. He will not be managing patient's TPN. Malka advised that she arranged for hospitalist to manage. Serena eNff MINING ANALYST Mold Burner for Dr. Kat [facility]05-02-2024 Miscellaneous Notes* Telephone Encounter - Serena Neff - 06/17/2023 11:40 AM EDT Phoned Malka back with Dr. Kat's response. He will not be managing patient's TPN. Malka advised that she arranged for hospitalist to manage. Serena Neff MINING ANALYST Mold Burner for Dr. Kat * Telephone Encounter - Dorita Manning - 06/15/2023 3:20 PM EDT Malka from [facility] calling asking if Dr Kat will follow patient for TPN. Physician there is discharging patient on TPN. CB# [phone] ext [phone] documented in this [facility]Ad[facility]04-30-2024 Telephone encounter Note * Telephone Encounter - Dorita Manning - 06/15/2023 3:20 PM EDT Malka from [facility] calling asking if Dr Kat will follow patient for TPN. Physician there is discharging patient on TPN. CB# [phone] ext [phone] [facility]04-30-2024 [id number] [facility]04-29-2024 Telephone encounter Note* Telephone Encounter - Stephanie Sumner DO - 06/14/2023 4:39 PM EDT Hospital Medicine Transfer Received page for transfer request from [facility] to [place]: Abbey Garcia is 33 year old female who presented with nausea, vomiting and worsening LUQ pain. Pt has complicated gastric surgery history and is currently doing TF via PEG for nutrition. Per [place] ED pt is HDS and electrolytes are stable. Pt is requesting transfer to because that is where her care team is and states she only went to [place] ED because they have short wait times. ED team gave IVF and IV pain meds which improved LUQ pain somewhat. Pts notified Dr Kat that she was going to ED. Reason for transfer: continuity of care Accepted to hospital medicine service at [place] Stephanie Sumner DO 4:39 PM [facility] Work Phone: 1(752) 431-925104-29-2024 Miscellaneous Notes* Telephone Encounter - Stephanie Sumner DO - 06/14/2023 4:39 PM EDT Hospital Medicine Transfer Received page for transfer request from [facility] to [place]: Abbey Garcia is 33 year old female who presented with nausea, vomiting and worsening LUQ pain. Pt has complicated gastric surgery history and is currently doing TF via PEG for nutrition. Per [place] ED pt is HDS and electrolytes are stable. Pt is requesting transfer to because that is where her care team is and states she only went to [place] ED because they have short wait times. ED team gave IVF and IV pain meds which improved LUQ pain somewhat. Pts notified Dr Kat that she was going to ED. Reason for transfer: continuity of care Accepted to hospital medicine service at [place] Stephanie Sumner DO 4:39 PM documented in this encounterAdams [facility] Hospital04-29-[facility]24 Telephone encounter Note * Telephone Encounter - Serena Neff - 06/14/2023 3:31 PM EDT Phoned patient and to discuss ED admission today. Pt is being transferred from [facility] to [facility]. Patient complaining of worsening left sided abdominal [...] at this time. Serena Neff RN BSN Mold Burner for Dr. Kat [facility]04-29-2024 Miscellaneous Notes* Telephone Encounter - Serena Neff - 06/14/2023 3:31 PM EDT Phoned patient and to discuss ED admission today. Pt is being transferred from [facility] to [facility]. Patient complaining of worsening left sided abdominal [...] at this time. Serena Neff RN BSN Mold Burner for Dr. Kat documented in this encounterAdams County Hospital04-26-2024 Note [id number]#1.00[facility] 06-09-2023 NoteHNO ID: [id number] Author: PABLO LEBRON PSYD Service: ? Author Type: Psychologist Type: Progress Notes Filed: 06/09/2023 09:52 Note Text: Assessment was conducted virtually. Patient is a resident of [place], and completed the assessment virtually in [place]. Psychologist is licensed and stationed in [place]. 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 Approximately 45 minutes were spent with the patient doing therapy. Pablo LebronRobinCeciliaB[facility]04-[facility] History of Present illness Narrative* Pablo Lebron, [facility] - 06/09/2023 8:59 AM EDT Assessment was conducted virtually. Patient is a resident of [place], and completed the assessment virtually in [place]. Psychologist is licensed and stationed in [place]. Informed consent was discussed and verbal assent was granted by the patient. GENERAL PSYCHOLOGY Session #: 4 (session count starts after [facility] visit) SUBJECTIVE: Major surgery February 2023 (difficult recovery; in and out of hospital due to malnutrition and dehydration, home health aid). Currently in hospital (difficulty with feeding tube) --- feeling better from med tx. 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 Approximately 45 minutes were spent with the patient doing therapy. Pablo Lebron PsyD documented in this encounterAdams County Hospital04-23-2024 [facility] 06-07-2023 [id number] [facility]04-16-2024 [facility]04-16-2024 History of Present illness Narrative* Vic Ramos MD - 06/01/2023 4:28 PM EDT TELEMEDICINE VISIT Modified Protocol for treatment of other conditions supportive of goal to minimize vulnerable patient exposure to Covid-19 [facility] Emergency Consented for encounter Patient verified by name and Abbey Garcia [id number] 1990 Patient consents to virtual visit Patient located at home Dr. Ramos located at [facility] office SUBJECTIVE: The patient [facility] for pain in [...] which included preparing to see the patient, gcyt-cq-inkj patient care, completing clinical documentation, obtaining and/or [...] MD June 01, 2023 documented in this encounterAdams County Hospital04-15-2024 Note [id number]#1.00[facility]-30-2023 Miscellaneous Notes* Telephone Encounter - Deacon Kat MD - 05/30/2023 10:16 AM EDT Significant constipation - no bm since Wednesday, a lot of rectal pressure. Tried her linzess, miralax. Recommended enema OTC + dulcolax suppository. Contact me if not improved. Deacon Kat MD documented in this encounterAdams County Hospital04-12-2024 Miscellaneous Notes* Telephone Encounter - Nabila Jackson RPh - 05/28/2023 5:48 PM EDT ERx for Nutren sent to [facility] today. These orders are unable to be processed here, but may be eligible to fill using [facility] at [place]. Please review and if appropriate, send forward for processing. Thank you! [facility] [phone] documented in this encounterAdams County Hospital04-12-[address] [facility] 05-28-2023 Miscellaneous Notes* Telephone Encounter - [...] and advise. Grecia Wallace documented in this encounterAdams County Hospital04-12-[address] [facility] 05-27-2023 NoteHNO ID: [id number] Author: EH KIMBALL, DEE Service: Nursing Author Type: Registered Nurse Type: Nursing Progress Note Filed: 05/27/2023 09:20 Note Text: Other: 0900 Pt verbalizes interest about bolus feeding. Notcher made aware. [facility]zmbrkge31-[facility]-[place] [address]-10-2024 NoteWalden Behavioral CareRxpyhmnb69-09-2188 NoteWalden Behavioral CareCvgdkiei21-39-6008 Note [id number]#1.00[facility] 05-22-2023 NoteWalden Behavioral CareYklmfuvo62-18-1602 NoteWalden Behavioral CareTvftutde72-06-2384 Note [facility] CareJfihkicm34-33-4774 NoteWalden Behavioral CarePaeihorb29-33-2086 Telephone encounter Note* Telephone Encounter - Itzel Hurley RN - 05/18/2023 9:25 AM EDT Images from the original note were not included. EGD images; please review [facility] EGD Report 05/12/2023 [facility]04-02-2024 Miscellaneous Notes* Telephone Encounter - Itzel [...] Please review thank you! documented in this encounterAdams County Hospital04-02-2024 Telephone encounter Note * Telephone Encounter - Silvina Brown - 05/18/2023 9:20 AM EDT Received records from [facility]. EGD dated 05/12/2023 Discharge Summary 05/11 to 05/14/2023 Ct Abdomen/Pelvis 05/11/2023 Please review thank you! [facility]04-01-2024 Hospital Discharge instructions Patient Education 05/17/2023 [...] at pharmacies and retail stores. Eat bland, bugk-ir-ipflyg foods in small amounts as you are [...] and water are not available, use hand insurance salesperson. Make sure that everyone in your household washes their hands frequently. Take tomd-rkp-npzuuef and prescription medicines only as told by [...] and water are not available, use hand insurance salesperson. Watch your condition for any changes and for signs of dehydration. Keep all follow-up visits. This is important. This information is not intended to replace advice given to you by your health care provider. Make sure you discuss any questions you have with your health care provider. Document Revised: 08/08/2021 Document Reviewed: 08/08/2021 [employer] Patient Education 2022 [employer]. Follow Up Care 05/17/2023 14:15:17 With:Jaquan Paula [facility] Address: When:05/20/2023 [facility]04-01-2024 History of Present illness Narrative* Deacon Kat MD - 05/17/2023 2:40 PM EDT VIRTUAL VISIT PROGRESS NOTE This is a virtual visit using Mobilioom Video Visit. It required patient- provider interaction for the medical decision making as documented below. I have communicated my name and active licensure. The patient's identity and physical location wereverified at the time of this visit. Either the patient or their legal title insurance sales representative has been informed of the [...] PM -------- ORIGINAL REPORT -------- Dictation workstation: [id number] Impression Postsurgical changes from gastric bypass. No evidence for obstruction.. MACRO: none Signed by: Corie Garza 03/17/2023 5:00 PM Dictation workstation: [id number] Narrative Interpreted By: Corie Garza, STUDY: FL UPPER GI W DOUBLE CONTRAST W SMALL BOWEL FOLLOW THROUGH; 03/17/2023 4:40 pm INDICATION: Signs/Symptoms:abdominal pain. COMPARISON: None. ACCESSION NUMBER(S): [id number] ORDERING CLINICIAN: TIFFANIE MENDEZ TECHNIQUE: Multiple fluoroscopic spot images were obtained during a single contrast upper GI with KUB. 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 COMPARISON: None.. ACCESSION NUMBER(S): [id number] ORDERING CLINICIAN: TIFFANIE MENDEZ TECHNIQUE: Oral contrast [...] ER. Deacon Kat MD documented in this encounterAdams County Hospital04-01-2024 [facility]Main [facility]04-01-2024 Evaluation + Plan noteExtracted from: Title:ED Note [...] Appointment Date:05/19/2023 10:40:00 AM Scheduled Provider:Jaquan Paula Location:[facility] Appointment Type: Hospital Follow Up w/TCM Appointment Date:07/13/2023 08:20:00 AM Scheduled Provider:OLGA GATICA PA-C Location:[facility] Appointment Type:URO Office Visit Appointment Date:08/04/2023 09:45:00 AM Scheduled Provider:Rajni Rouse MD Location:[facility] Appointment Type:URO Office Visit Diagnostic Tests Pending * Drug Screen Urine 05/17/23 Future Scheduled Tests Radiology* US Renal 06/10/22 [facility]03-29-2024 Evaluation + Plan noteExtracted from: Title:Discharge [...] Cannabinoid Hyperemesis Syndrome Nausea and Vomiting, Adult, Chyo-ms-Olfe Extracted from: Title:Progress Note * Author:Migule JOHNSON, Rosalia Smith Date:05/14/23 Impression and Plan This is a 33-year-old lady with past medical history of gastric sleeve surgery in July 2020, complicated by significant reflux switch to Tan-en-Y January 2022 at [facility], [facility] surgery February 2023 which reported [...] Orders Sbsq Hospital Care/Day Moderate 35 Minutes [id number] 2. Intractable abdominal pain (R10.9: Unspecified abdominal [...] Ordered: Sbsq Hospital Care/Day Moderate 35 Minutes 61311 2. Intractable abdominal pain (R10.9: Unspecified abdominal [...] reflux switch to Tan-en-Y January 2022 at [facility], [facility] surgery February 2023 which reported [...] reflux switch to Tan-en-Y January 2022 at [facility], [facility] surgery February 2023 which reported helped [...] 2022 Author:Kuldip Arcos Jr, DO Date:05/12/23 Plan [place] [employer] Anesthesiologists (ASA) physical status classification: [...] Ordered: Initial Hospital Care/Day Moderate [id number] in Status 2. Intractable abdominal pain [...] Appointment Date:05/19/2023 10:40:00 AM Scheduled Provider:Jaquan Paula Location:[facility] Appointment Type: Hospital Follow Up w/TCM Appointment Date:07/13/2023 08:20:00 AM Scheduled Provider:OLGA GATICA PA-C Location:[facility] Appointment Type:URO Office Visit Appointment Date:08/04/2023 09:45:00 AM Scheduled Provider:Rajni Rouse MD Location:[facility] Appointment Type:URO Office Visit Diagnostic Tests Pending * Copper Level 05/14/23 * HIV Screen 4th Generation wRfx 05/14/23 * Acute Hepatitis A B C Panel 05/14/23 Future Scheduled Tests Radiology* US Renal 06/10/22 [facility]03-29-2024 Hospital Discharge instructions Patient Education 05/14/2023 [...] as coffee and soda. Take and apply drxc-tdd-gdcmyji and prescription medicines only as told by [...] provider. Document Revised: 06/01/2022 Document Reviewed: 06/01/2022 [employer] Patient Education 2022 [employer]. 05/14/2023 11:56:24 Nausea and Vomiting, Adult, Chgc-bt-Fqxh Nausea and Vomiting, Adult Nausea is feeling [...] fruit juice). ?Low-calorie sports drinks. Eat bland, xrjt-zo-vkioyv foods in small amounts as you are able, such as: ?Bananas. ?Applesauce. ?Rice. ?Low-fat (lean) meats. ?Nibley. ?Crackers. Avoid drinking fluids that have a lot of sugar or caffeine in them. This includes energy drinks, sports drinks, and soda. Avoid alcohol. Avoid spicy or fatty foods. General instructions Take sgys-bfn-chhwknw and prescription medicines only as told by your doctor. Drink enough fluid to keep your pee (urine) pale yellow. Wash your hands often with soap and water for at least 20 seconds. If you cannot use soap and water, use hand insurance salesperson. Make sure that everyone in your home [...] your doctor about eating and drinking. Take rzks-vhg-uojipde and prescription medicines only as told by your doctor. Contact your doctor if your symptoms get worse or you have new symptoms. Keep all follow-up visits. This information is not intended to replace advice given to you by your health care provider. Make sure you discuss any questions you have with your health care provider. Document Revised: 08/08/2021 Document Reviewed: 08/08/2021 [employer] Patient Education 2022 [employer]. Follow Up Care 05/12/2023 09:23:09 With:Patient has [facility] Home Health in place Address:Unknown When: Unknown With:Jaquan Paula [facility], [facility] Address: [address] [place] [address] [facility] (1) When: Unknown With:Follow up with surgeon Address: When: Unknown Comments:Appointment has already been scheduled [facility]03-29-2024 [facility]:Result Comment: Electronically Signed By: Moncoh Trejo DO\.br\Date and Time Signed: 05/14/23 12:06 [id number] [facility] HospitalComment on above:Result Comment: Electronically Signed By: Moncho Trejo DO\.br\Date and Time Signed: 05/12/23 12:59 [id number] Hospital Discharge instructions Patient Education 05/11/2023 16:46:23 Abdominal Pain, Adult, Ejty-gd-Grpy Abdominal Pain, Adult Many things can cause belly (abdominal) pain. Most times, belly pain is not dangerous. Many cases of belly pain can be watched and treated at home. Sometimes, though, belly pain is serious. Your doctor will try to find the cause of your belly pain. Follow these instructions at home: Medicines Take frud-fxg-hqpzgmh and prescription medicines only as told by [...] your belly pain for any changes. Take fzlb-zri-fpucwze and prescription medicines only as told by [...] provider. Document Revised: 06/12/2019 Document Reviewed: 06/12/2019 [employer] Patient Education 2022 [employer] Follow Up Care 05/11/2023 11:48:15 With:Miguel JOHNSON, APRYL Bean, [facility] Address: [address], [address] [phone] When:2 to 4 days Comments:Call today to schedule your follow upReturn to ED if symptoms worsen [facility]03-26-2024 Evaluation + Plan noteExtracted from: Title:ED [...] Date:07/13/2023 08:20:00 AM Scheduled Provider:OLGA GATICA PA-C Location:[facility] Appointment Type:URO Office Visit Appointment Date:08/04/2023 09:45:00 AM Scheduled Provider:Rajni Rouse MD Location:[facility] Appointment Type:URO Office Visit Future Scheduled Tests Radiology* US Renal 06/10/22 [facility]03-25-2024 Miscellaneous Notes* Telephone Encounter - Serena Neff - 05/10/2023 2:51 PM EDT Patient scheduled with Dr. Kat on 05/11. Serena Neff RN BSN Mold Burner for Dr. Kat * Telephone Encounter - [...] by Dr. Kat. Serena Neff RN BSN Mold Burner for Dr. Kat * Telephone Encounter - Dorita Manning - 05/10/2023 10:44 AM EDT Patients calling concerned about Abbey. She has been in the ER 2 times in the last 4 days. She was told to speak to DR who originally put her on TPN to discuss getting back on it. CB# [phone] documented in this encounterAdams County Hospital03-24-2024 Hospital Discharge instructions Patient Education 05/09/2023 [...] Follow these instructions at home: Medicines Take louv-djm-gwdmdac and prescription medicines only as told by [...] Watch your condition for any changes. Take vugq-ycr-klhxipa and prescription medicines only as told by [...] provider. Document Revised: 03/22/2020 Document Reviewed: 06/12/2019 [employer] Patient Education 2022 [employer]. Follow Up Care 05/09/2023 11:38:04 With:Earnest Oakes Address: [address] [phone] Business (1) When:05/12/2023 15:51:27 With:Jon Rivera Address: [address], [address] [address]- [phone] Business (1) When:05/12/2023 15:51:00 With:Jaquan Morrow Address: [address] [place] [phone] Business (1) When:05/12/2023 15:50:53 [facility]03-24-2024 Evaluation + Plan noteExtracted from: Title:ED [...] Date:07/13/2023 08:20:00 AM Scheduled Provider:OLGA GATICA PA-C Location:[facility] Appointment Type:URO Office Visit Appointment Date:08/04/2023 09:45:00 AM Scheduled Provider:Rajni Rouse MD Location:[facility] Appointment Type:URO Office Visit Future Scheduled Tests Radiology* US Renal 06/10/22 [facility]03-22-2024 Miscellaneous Notes* Telephone Encounter - Yvette Morgan - 05/07/2023 11:07 AM EDT Procedure canceled * Telephone Encounter - Santa Hart RN - 05/07/2023 10:47 AM EDT Patient is keeping 07/20/2023 Upper endoscopy appointment and wishes to cancel 05/14/2023 EGD appointment. Scheduling notified. documented in this encounterAdams County Hospital03-21-2024 Hospital Discharge instructions Patient Education 05/06/2023 [...] Follow these instructions at home: Medicines Take dilj-nve-vzxswhq and prescription medicines only as told by [...] Watch your condition for any changes. Take lmjm-dpq-vlidyqv and prescription medicines only as told by [...] provider. Document Revised: 03/22/2020 Document Reviewed: 06/12/2019 [employer] Patient Education 2022 [employer]. Follow Up Care 05/06/2023 15:41:48 With:Follow-up with your surgeon at soon as possible, call the office tomorrow to schedule an appointment. Return to the ER with any new or worsening symptoms. Address:Unknown When: Unknown With:Jaquan Morrow Address:Unknown When:Within 3 Day(s) [facility]03-13-2024 History of Present illness Narrative* Kasie [...] race variable for the IDMS-Traceable creatinine methods. [email or web address]://jasn.asnjournals.org/content//[email or web address] Calcium 8.5 - 10.4 mg/dL 8.7 Albumin [...] the body of the stomach FINAL DIAGNOSIS [facility] STOMACH ANTRUM, BIOPSY: Erosive chronic active gastritis [...] healthy appearing mucosa. This was traversed. The xvsyq-hj-ibelwev limb was characterized by healthy appearing mucosa. [...] healthy appearing mucosa. This was traversed. The hnwqw-pq-xsrmnme limb was characterized by healthy appearing mucosa. The jejunojejunal anastomosis was characterized by healthy appearing mucosa. The examined jejunum was normal. Impression: - Normal esophagus. - Tan-en-Y gastrojejunostomy with gastrojejunal anastomosis characterized by healthy appearing mucosa. No ulceration or stenosis. - Normal examined jejunum. - No specimens collected. Upper GI SERIES 03/17/23 FINDINGS: Slice Cutting Machine Operator Helper images demonstrate postsurgical changes from previous Tan-en-Y [...] destructive bone lesions. CT ABD/PEL 12/06/22 ABDOMEN: Slice Cutting Machine Operator Helper (topogram) images: No additional findings. Images of [...] which included preparing to see the patient, aqde-ee-hhug patient care, completing clinical documentation, obtaining and/or reviewing separately obtained history, performing a medically appropriate examination, counseling and educating the pat ient/family/caregiver, and ordering medications, tests, or procedures. Kasie Avalos MD April 22, 2023 2:06 PM documented in this encounterAdams County Hospital03-13-2024 NoteMain [facility]02-21-2024 History of Present illness Narrative* Sherry Magaña [...] with her bariatric surgeon at [facility]. I will follow-up with her in 2 weeks by telephone. documented in this encounterFostoria City Hospital Work Phone: [phone] NoteMain Campus Medical Center02-21-2024 History of Present illness Narrative* Deacon Kat MD - 04/07/2023 1:48 PM EST VIRTUAL VISIT PROGRESS NOTE This is a virtual visit using Mobilioom Video Visit. It required patient- provider interaction for the medical decision making as documented below. I have communicated my name and active licensure. The patient's identity and physical location wereverified at the time of this visit. Either the patient or their legal title insurance sales representative has been informed of the [...] She had a recent EGD through the [employer] system which I was able to obtain [...] Low Deacon Kat MD documented in this encounterAdams County Hospital02-16-2024 Hospital Discharge instructions Patient Education 04/02/2023 [...] Follow these instructions at home: Medicines Take qjzx-lsv-wjheizh and prescription medicines only as told by [...] provider. Document Revised: 04/17/2021 Document Reviewed: 04/17/2021 [employer] Patient Education 2022 [employer]. 04/02/2023 17:02:34 Abdominal Pain, Adult Abdominal Pain, [...] Follow these instructions at home: Medicines Take wixk-grn-bcnaajr and prescription medicines only as told by [...] Watch your condition for any changes. Take hvkh-hmg-yrjvjeo and prescription medicines only as told by [...] provider. Document Revised: 03/22/2020 Document Reviewed: 06/12/2019 [employer] Patient Education 2022 [employer]. Follow Up Care 04/02/2023 10:53:50 With:Jon Rivera Address: [address] [place] [address], [address] [address]- [phone] Business (1) When:04/05/2023 16:23:56 Comments:Make sure to follow-up with your primary doctor and your surgeon. Follow-up with Dr. Rivera for the GI. Return to the emergency room if your pain gets worse or any new symptoms. With:Jaquan Morrow Address:Unknown When:Within 3 Day(s) [facility]02-16-2024 Evaluation + Plan noteExtracted from: Title:ED Note Author:Jose Ramon Martinez, Ashutosh Arroyo te:04/02/23 1. Chest pain (R07.9: Chest pain, unspecified) 2. Abdominal pain (R10.9: Unspecified abdominal pain) Orders: dicyclomine, 20 mg = 2 cap(s), Oral, QID, # 20 cap(s), Refills(s) 0, Pharmacy: [facility]/pharmacy #[id number], 167, cm, 04/02/23 11:01:00 EST, Height/Length Dosing, [...] nausea/vomiting, # 16 tab(s), Refills(s) 0, Pharmacy: [facility]/pharmacy #[id number], 167, cm, 04/02/23 11:01:00 EST, Height/Length [...] day(s), # 560 mL, Refills(s) 0, Pharmacy: [facility]/pharmacy #[id number], 167, cm, 04/02/23 11:01:00 EST, Height/Length [...] Date:08/04/2023 09:45:00 AM Scheduled Provider:Rajni Rouse MD Location:[facility] Appointment Type:URO Office Visit Future Scheduled Tests Radiology* US Renal 06/10/22 [facility]02-03-2024 Nurse Note* Stacie Blanco RN - 03/20/2023 4:41 PM EST Patient discharged home to care of self and . Patient transported to front entrance via wheelchair. No injuries, bleeding or distress noted. [facility]02-03-2024 Nurse Note* Stacie Blanco [...] of NG tube. Order received. Waiting on microbiology lab technician to verify placement per order. Will [...] to re insert NG tube and supervisor dairy sanitation to low suction. Will re attempt with patients consent. * Cathy Madera RN - 03/17/2023 12:06 PM EST Patient transported to Xray for placement of NG. Patient off unit. * Cathy Madera RN - 03/17/2023 11:44 AM EST This nurse notified biological technician that patient had NG tube placed and needed Xray for placement verification. This nurse messaged Rosa YUN to notify her that NG tube was placed and needed separate order for NG tube placement per biological technician. Order received. Will continue to monitor [...] to ensure patient safety. documented in this [facility] Work Phone: 1(764) 606-952602-03-2024 Nurse Note* Stacie Blanco RN - 03/20/2023 4:01 PM EST Provided/explained discharge instructions and summary. Provided opportunity for questions and discussion. No complaints or concerns communicated. [facility] Work Phone: 1(853) 814-544302-03-2024 History of Present illness Narrative* Nathalie Tyler RN - 03/20/2023 3:35 PM EST Patient is medically ready for discharge. Per previous healthcare sales representative, plan for home with home health care. Message to provider that external home care referral is needed. UPDATE 1549: Discharging provider indicates no continued skilled needs for home care. Per bedside nurse May, patient is in agreement that she no longer needs home health care services. Referral to [facility] updated and closed. Patient will discharge no [...] Tomasa Keyes RN 03/19/2023 1431 Procedure Location [address] [address] Referring Provider Generic Provider [place] No address on file Procedure Provider No [...] Dr. Magaña. -EGD report reviewed, appreciate Dr. Prseton and Dr. Jah Darnell input. Component of [...] 03/17/2023 done at 2:05 p.m. ACCESSION NUMBER(S): [id number] ORDERING CLINICIAN: TIFFANIE MENDEZ TECHNIQUE: AP erect view of the chest FINDINGS: The nasogastric tube has not ch anged in placement with the tip seen within the proximal thoracic esophagus. Heart and mediastinum are normally visualized. Lungs are clear. Distal tip of nasogastric tube in proximal thoracic esophagus just above the aortic arch. Signed by: Nya Ahmadi 03/17/2023 8:19 PM Dictation workstation: [id number] FL upper GI w double contrast w small bowel follow through Result Date: 03/17/2023 Interpreted By: Corie Garza, STUDY: FL UPPER GI W DOUBLE CONTRAST W SMALL BOWEL FOLLOW THROUGH; 03/17/2023 4:40 pm INDICATION: Signs/Symptoms:abdominal pain. COMPARISON: None. ACCESSION NUMBER(S): [id number] ORDERING CLINICIAN: TIFFANIE MENDEZ TECHNIQUE: Multiple fluoroscopic spot images were obtained during a single contrast upper GI with KUB. Total fluoroscopy time: 1 minute 32 seconds Radiation exposure (Reference Air Kerma): 99.36 mGy Images: 2 spot images 7 series and 2 delayed AP viewsof the abdomen FINDINGS: Slice Cutting Machine Operator Helper images demonstrate postsurgical changes from previous Tan-en-Y [...] Corie Garza 03/17/2023 5:00 PM Dictation workstation: [id number] XR chest 1 view Result Date: 03/17/2023 Interpreted By: Corie Garza, STUDY: XR CHEST 1 VIEW; 03/17/2023 12:41 pm INDICATION: Signs/Symptoms:Status post NG tube placement. COMPARISON: None available ACCESSION NUMBER(S): [id number] ORDERING CLINICIAN: TIFFANIE MENDEZ FINDINGS: RESULT: Nasogastric [...] Corie Garza 03/17/2023 4:19 PM Dictation workstation: [id number] CT abdomen pelvis w IV contrast Result Date: 03/16/2023 Interpreted By: Corie Garza, STUDY: CT ABDOMEN PELVIS W IV CONTRAST; 03/16/2023 5:27 pm INDICATION: Signs/Symptoms:abdominal pain - with oral and IV contrast. COMPARISON: None.. ACCESSION NUMBER(S): [id number] ORDERING CLINICIAN: TIFFANIE MENDEZ TECHNIQUE: Oral contrast [...] Corie Garza 03/16/2023 5:46 PM Dictation workstation: [id number] XR chest 1 view Result Date: 03/06/2023 Interpreted By: Sara Zarate, STUDY: XR CHEST 1 VIEW; 03/06/2023 7:32 am INDICATION: Signs/Symptoms:post op COMPARISON: None ACCESSION NUMBER(S): [id number] ORDERING CLINICIAN: JASON FOSTER TECHNIQUE: Frontal and [...] Sara Zarate 03/06/2023 1:48 PM Dictation workstation: [id number] XR chest 1 view Result Date: 03/05/2023 Interpreted By: Baldomero Hendrickson, STUDY: XR CHEST 1 VIEW; 03/05/2023 3:11 pm INDICATION: CLINICAL INFORMATION: Signs/Symptoms:NG tube placement confirmation. COMPARISON: 03/05/2019 at 745 hours ACCESSION NUMBER(S): [id number] ORDERING CLINICIAN: DESMOND TIRADO TECHNIQUE: Portable chest [...] Baldomero Hendrickson 03/05/2023 3:31 PM Dictation workstation: [id number] XR chest 1 view Result Date: 03/05/2023 Interpreted By: Nya Ahmadi, STUDY: XR CHEST 1 VIEW 03/05/2023 7:51 am INDICATION: Signs/Symptoms:confirm line placement COMPARISON: None available. ACCESSION NUMBER(S): [id number] ORDERING CLINICIAN: SERENA GEORGE TECHNIQUE: AP erect view of the chest FINDINGS: Right arm PICC line terminates in the SVC. There is no pneumothorax. The heart, mediastinum, and lungs are normally visualized. Right arm PICC line terminating in SVC without pneumothorax. No acute cardiopulmonary disease. Signed by: Nya Ahmadi 03/05/2023 7:54 AM Dictation workstation: [id number] Assessment/Plan Principal Problem: Abdominal pain NV, Epigastric [...] Lynn - 03/19/2023 3:58 PM EST Abbey Gracia is a 32 y.o. female on day [...] Tomasa Keyes RN 03/19/2023 1431 Procedure Location [address] [address] Referring Provider Generic Provider [place] No address on file Procedure Provider No name on file XR chest 1 view Result Date: 03/17/2023 Interpreted By: Nya Ahmadi, STUDY: XR CHEST 1 VIEW 03/17/2023 7:09 pm INDICATION: Signs/Symptoms:S/p NG placement COMPARISON: 03/17/2023 done at 2:05 p.m. ACCESSION NUMBER(S): [id number] ORDERING CLINICIAN: TIFFANIE MENDEZ TECHNIQUE: AP erect view of the chest FINDINGS: The nasogastric tube has not ch anged in placement with the tip seen within the proximal thoracic esophagus. Heart and mediastinum are normally visualized. Lungs are clear. Distal tip of nasogastric tube in proximal thoracic esophagus just above the aortic arch. Signed by: Nya Ahmadi 03/17/2023 8:19 PM Dictation workstation: [id number] FL upper GI w double contrast w small bowel follow through Result Date: 03/17/2023 Interpreted By: Corie Garza, STUDY: FL UPPER GI W DOUBLE CONTRAST W SMALL BOWEL FOLLOW THROUGH; 03/17/2023 4:40 pm INDICATION: Signs/Symptoms:abdominal pain. COMPARISON: None. ACCESSION NUMBER(S): [id number] ORDERING CLINICIAN: TIFFANIE MENDEZ TECHNIQUE: Multiple fluoroscopic spot images were obtained during a single contrast upper GI with KUB. Total fluoroscopy time: 1 minute 32 seconds Radiation exposure (Reference Air Kerma): 99.36 mGy Images: 2 spot images 7 series and 2 delayed AP viewsof the abdomen FINDINGS: Slice Cutting Machine Operator Helper images demonstrate postsurgical changes from previous Tan-en-Y [...] Corie Garza 03/17/2023 5:00 PM Dictation workstation: [id number] XR chest 1 view Result Date: 03/17/2023 Interpreted By: Corie Garza, STUDY: XR CHEST 1 VIEW; 03/17/2023 12:41 pm INDICATION: Signs/Symptoms:Status post NG tube placement. COMPARISON: None available ACCESSION NUMBER(S): [id number] ORDERING CLINICIAN: TIFFANIE MENDEZ FINDINGS: RESULT: Nasogastric [...] Corie Garza 03/17/2023 4:19 PM Dictation workstation: [id number] CT abdomen pelvis w IV contrast Result Date: 03/16/2023 Interpreted By: Corie Garza, STUDY: CT ABDOMEN PELVIS W IV CONTRAST; 03/16/2023 5:27 pm INDICATION: Signs/Symptoms:abdominal pain - with oral and IV contrast. COMPARISON: None.. ACCESSION NUMBER(S): [id number] ORDERING CLINICIAN: TIFFANIE MENDEZ TECHNIQUE: Oral contrast [...] Corie Garza 03/16/2023 5:46 PM Dictation workstation: [id number] XR chest 1 view Result Date: 03/06/2023 Interpreted By: Sraa Zarate, STUDY: XR CHEST 1 VIEW; 03/06/2023 7:32 am INDICATION: Signs/Symptoms:post op COMPARISON: None ACCESSION NUMBER(S): [id number] ORDERING CLINICIAN: JASON FOSTER TECHNIQUE: Frontal and [...] Sara Zarate 03/06/2023 1:48 PM Dictation workstation: [id number] XR chest 1 view Result Date: 03/05/2023 Interpreted By: Baldomero Hendrickson, STUDY: XR CHEST 1 VIEW; 03/05/2023 3:11 pm INDICATION: CLINICAL INFORMATION: Signs/Symptoms:NG tube placement confirmation. COMPARISON: 03/05/2019 at 745 hours ACCESSION NUMBER(S): [id number] ORDERING CLINICIAN: DESMOND TIRADO TECHNIQUE: Portable chest [...] Baldomero Hendrickson 03/05/2023 3:31 PM Dictation workstation: [id number] XR chest 1 view Result Date: 03/05/2023 Interpreted By: Nya Ahmadi, STUDY: XR CHEST 1 VIEW 03/05/2023 7:51 am INDICATION: Signs/Symptoms:confirm line placement COMPARISON: None available. ACCESSION NUMBER(S): [id number] ORDERING CLINICIAN: SERENA GEORGE TECHNIQUE: AP erect view of the chest FINDINGS: Right arm PICC line terminates in the SVC. There is no pneumothorax. The heart, mediastinum, and lungs are normally visualized. Right arm PICC line terminating in SVC without pneumothorax. No acute cardiopulmonary disease. Signed by: Nya Ahmadi 03/05/2023 7:54 AM Dictation workstation: [id number] Assessment/Plan -Abdominal pain/nausea -Median arcuate ligament syndrome, [...] overall care of this patient. Jason Foster, COAL CUTTER-MINI SHIFTER * Kurt Matos MD - 03/19/2023 3:26 [...] deferto her bariatric surgeon, Dr. Morel, at [place]. Will sign off. Kurt Matos MD * Anam Davila RN - 03/19/2023 3:11 PM EST Abbey Garcia is a 32 y.o. female on day 3 of admission presenting with Abdominal pain. Met with patient at bedside. Patient states she has been active with [facility] in [place] . Patient would like to continue HHC with [facility]. Referral was sent. EGD scheduled today. Has NG in place. [facility] is able to accept for STEF. NG discontinued. On clear liquids. WILL NEED AND EXTERNAL REFERRAL FOR RESUMPTION OF [facility]. Anam Davila RN * Shelley Nash, COAL CUTTER-MINI SHIFTER - 03/19/2023 12:32 PM EST Abbey Garcia [...] her usual [facility] surgeons after DC. 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 MVI, B12. I spent 15 minutes in [...] 03/17/2023 done at 2:05 p.m. ACCESSION NUMBER(S): [id number] ORDERING CLINICIAN: TIFFANIE MENDEZ TECHNIQUE: AP erect view of the chest FINDINGS: The nasogastric tube has not changed in placement with the tip seen within the proximal thoracic esophagus. Heart and mediastinum are normally visualized. Lungs are clear. Impression: Distal tip of nasogastric tube in proximal thoracic esophagus just above the aortic arch. Signed by: Nya Ahmadi 03/17/2023 8:19 PM Dictation workstation: [id number] FL upper GI w double contrast w small bowel follow through Narrative: Interpreted By: Corie Garza, STUDY: FL UPPER GI W DOUBLE CONTRAST W SMALL BOWEL FOLLOW THROUGH; 03/17/2023 4:40 pm INDICATION: Signs/Symptoms:abdominal pain. COMPARISON: None. ACCESSION NUMBER(S): [id number] ORDERING CLINICIAN: TIFFANIE MENDEZ TECHNIQUE: Multiple fluoroscopic spot images were obtained during a single contrast upper GI with KUB. 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 Helper images demonstrate postsurgical changes from previous Tan-en-Y [...] Corie Garza 03/17/2023 5:00 PM Dictation workstation: [id number] XR chest 1 view Narrative: Interpreted By: Corie Garza, STUDY: XR CHEST 1 VIEW; 03/17/2023 12:41 pm INDICATION: Signs/Symptoms:Status post NG tube placement. COMPARISON: None available ACCESSION NUMBER(S): [id number] ORDERING CLINICIAN: TIFFANIE MENDEZ FINDINGS: RESULT: Nasogastric [...] Corie Garza 03/17/2023 4:19 PM Dictation workstation: [id number] Physical Exam Vitals and nursing note reviewed. [...] her usual [facility] surgeons after DC. 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 MVI, B12. I spent 15 minutes in [...] Marino with [facility], prescriptions filled through [facility] in [place]. Uncertain if pt will have dc needs. Her last admit she went home with [facility]. TCC to follow ongoing medical workup. Safe dc plan not secured-TCC to follow Sabina Hurd MSSA, MAGNETIC GRINDER OPERATOR * JAMA Smith - 03/18/2023 10:57 AM EST Abbey Garcia [...] 03/17/2023 done at 2:05 p.m. ACCESSION NUMBER(S): [id number] ORDERING CLINICIAN: TIFFANIE MENDEZ TECHNIQUE: AP erect view of the chest FINDINGS: The nasogastric tube has not changed in placement with the tip seen within the proximal thoracic esophagus. Heart and mediastinum are normally visualized. Lungs are clear. Impression: Distal tip of nasogastric tube in proximal thoracic esophagus just above the aortic arch. Signed by: Nya Ahmadi 03/17/2023 8:19 PM Dictation workstation: [id number] FL upper GI w double contrast w small bowel follow through Narrative: Interpreted By: Corie Garza, STUDY: FL UPPER GI W DOUBLE CONTRAST W SMALL BOWEL FOLLOW THROUGH; 03/17/2023 4:40 pm INDICATION: Signs/Symptoms:abdominal pain. COMPARISON: None. ACCESSION NUMBER(S): [id number] ORDERING CLINICIAN: TIFFANIE MENDEZ TECHNIQUE: Multiple fluoroscopic spot images were obtained during a single contrast upper GI with KUB. 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 Helper images demonstrate postsurgical changes from previous Tan-en-Y [...] Corie Garza 03/17/2023 5:00 PM Dictation workstation: [id number] XR chest 1 view Narrative: Interpreted By: Corie Garza, STUDY: XR CHEST 1 VIEW; 03/17/2023 12:41 pm INDICATION: Signs/Symptoms:Status post NG tube placement. COMPARISON: None available ACCESSION NUMBER(S): [id number] ORDERING CLINICIAN: TIFFANIE MENDEZ FINDINGS: RESULT: Nasogastric [...] Corie Garza 03/17/2023 4:19 PM Dictation workstation: [id number] Physical Exam Vitals and nursing note reviewed. [...] 03/17/2023 done at 2:05 p.m. ACCESSION NUMBER(S): [id number] ORDERING CLINICIAN: TIFFANIE MENDEZ TECHNIQUE: AP erect view of the chest FINDINGS: The nasogastric tube has not ch anged in placement with the tip seen within the proximal thoracic esophagus. Heart and mediastinum are normally visualized. Lungs are clear. Distal tip of nasogastric tube in proximal thoracic esophagus just above the aortic arch. Signed by: yNa Ahmadi 03/17/2023 8:19 PM Dictation workstation: [id number] FL upper GI w double contrast w small bowel follow through Result Date: 03/17/2023 Interpreted By: Corie Garza, STUDY: FL UPPER GI W DOUBLE CONTRAST W SMALL BOWEL FOLLOW THROUGH; 03/17/2023 4:40 pm INDICATION: Signs/Symptoms:abdominal pain. COMPARISON: None. ACCESSION NUMBER(S): [id number] ORDERING CLINICIAN: TIFFANIE MENDEZ TECHNIQUE: Multiple fluoroscopic spot images were obtained during a single contrast upper GI with KUB. Total fluoroscopy time: 1 minute 32 seconds Radiation exposure (Reference Air Kerma): 99.36 mGy Images: 2 spot images 7 series and 2 delayed AP viewsof the abdomen FINDINGS: Slice Cutting Machine Operator Helper images demonstrate postsurgical changes from previous Tan-en-Y [...] Corie Garza 03/17/2023 5:00 PM Dictation workstation: [id number] XR chest 1 view Result Date: 03/17/2023 Interpreted By: Corie Garza, STUDY: XR CHEST 1 VIEW; 03/17/2023 12:41 pm INDICATION: Signs/Symptoms:Status post NG tube placement. COMPARISON: None available ACCESSION NUMBER(S): [id number] ORDERING CLINICIAN: TIFFANIE MENDEZ FINDINGS: RESULT: Nasogastric [...] Corie Garza 03/17/2023 4:19 PM Dictation workstation: [id number] CT abdomen pelvis w IV contrast Result Date: 03/16/2023 Interpreted By: Corie Garza, STUDY: CT ABDOMEN PELVIS W IV CONTRAST; 03/16/2023 5:27 pm INDICATION: Signs/Symptoms:abdominal pain - with oral and IV contrast. COMPARISON: None.. ACCESSION NUMBER(S): [id number] ORDERING CLINICIAN: TIFFANIE MENDEZ TECHNIQUE: Oral contrast [...] Corie Garza 03/16/2023 5:46 PM Dictation workstation: [id number] Assessment/Plan Abdominal pain, nausea, chronic intolerance to [...] 03/17/2023 done at 2:05 p.m. ACCESSION NUMBER(S): [id number] ORDERING CLINICIAN: TIFFANIE MENDEZ TECHNIQUE: AP erect view of the chest FINDINGS: The nasogastric tube has not ch anged in placement with the tip seen within the proximal thoracic esophagus. Heart and mediastinum are normally visualized. Lungs are clear. Distal tip of nasogastric tube in proximal thoracic esophagus just above the aortic arch. Signed by: Nya Ahmadi 03/17/2023 8:19 PM Dictation workstation: [id number] FL upper GI w double contrast w small bowel follow through Result Date: 03/17/2023 Interpreted By: Corie Garza, STUDY: FL UPPER GI W DOUBLE CONTRAST W SMALL BOWEL FOLLOW THROUGH; 03/17/2023 4:40 pm INDICATION: Signs/Symptoms:abdominal pain. COMPARISON: None. ACCESSION NUMBER(S): [id number] ORDERING CLINICIAN: TIFFANIE MENDEZ TECHNIQUE: Multiple fluoroscopic spot images were obtained during a single contrast upper GI with KUB. Total fluoroscopy time: 1 minute 32 seconds Radiation exposure (Reference Air Kerma): 99.36 mGy Images: 2 spot images 7 series and 2 delayed AP viewsof the abdomen FINDINGS: Slice Cutting Machine Operator Helper images demonstrate postsurgical changes from previous Tan-en-Y [...] Corie Garza 03/17/2023 5:00 PM Dictation workstation: [id number] XR chest 1 view Result Date: 03/17/2023 Interpreted By: Corie Garza, STUDY: XR CHEST 1 VIEW; 03/17/2023 12:41 pm INDICATION: Signs/Symptoms:Status post NG tube placement. COMPARISON: None available ACCESSION NUMBER(S): [id number] ORDERING CLINICIAN: TIFFANIE MENDEZ FINDINGS: RESULT: Nasogastric [...] Corie Garza 03/17/2023 4:19 PM Dictation workstation: [id number] CT abdomen pelvis w IV contrast Result Date: 03/16/2023 Interpreted By: Corie Garza, STUDY: CT ABDOMEN PELVIS W IV CONTRAST; 03/16/2023 5:27 pm INDICATION: Signs/Symptoms:abdominal pain - with oral and IV contrast. COMPARISON: None.. ACCESSION NUMBER(S): [id number] ORDERING CLINICIAN: TIFFANIE MENDEZ TECHNIQUE: Oral contrast [...] Corie Garza 03/16/2023 5:46 PM Dictation workstation: [id number] XR chest 1 view Result Date: 03/06/2023 Interpreted By: Sara Zarate, STUDY: XR CHEST 1 VIEW; 03/06/2023 7:32 am INDICATION: Signs/Symptoms:post op COMPARISON: None ACCESSION NUMBER(S): [id number] ORDERING CLINICIAN: JASON FOSTER TECHNIQUE: Frontal and [...] Sara Zarate 03/06/2023 1:48 PM Dictation workstation: [id number] XR chest 1 view Result Date: 03/05/2023 Interpreted By: Baldomero Hendrickson, STUDY: XR CHEST 1 VIEW; 03/05/2023 3:11 pm INDICATION: CLINICAL INFORMATION: Signs/Symptoms:NG tube placement confirmation. COMPARISON: 03/05/2019 at 745 hours ACCESSION NUMBER(S): [id number] ORDERING CLINICIAN: DESMOND TIRADO TECHNIQUE: Portable chest [...] Baldomero Hendrickson 03/05/2023 3:31 PM Dictation workstation: [id number] XR chest 1 view Result Date: 03/05/2023 Interpreted By: Nya Ahmadi, STUDY: XR CHEST 1 VIEW 03/05/2023 7:51 am INDICATION: Signs/Symptoms:confirm line placement COMPARISON: None available. ACCESSION NUMBER(S): [id number] ORDERING CLINICIAN: SERENA GEORGE TECHNIQUE: AP erect view of the chest FINDINGS: Right arm PICC line terminates in the SVC. There is no pneumothorax. The heart, mediastinum, and lungs are normally visualized. Right arm PICC line terminating in SVC without pneumothorax. No acute cardiopulmonary disease. Signed by: Nya Ahmadi 03/05/2023 7:54 AM Dictation workstation: [id number] Assessment/Plan Principal Problem: Abdominal pain NV, Epigastric [...] -Increase PPI to twice daily Deepika Roy APRN-MINI SHIFTER Associated attestation - Yani Wong MD - [...] and IV contrast. COMPARISON: None.. ACCESSION NUMBER(S): [id number] ORDERING CLINICIAN: TIFFANIE MENDEZ TECHNIQUE: Oral contrast [...] Corie Garza 03/16/2023 5:46 PM Dictation workstation: [id number] Physical Exam Vitals and nursing note reviewed. [...] in her local emergency room out in [place]. She was discharged after her nausea was relieved last night but this nausea recurred and she was transferred here. I suspect given adequate pain control and control of her nausea that once the inflammation of her surgery resolves she will feel much better. Pancreatitis and bowel ischemia have been ruled out through lab testing and noncontrast CT done yesterday in [place]. I am going to get a CT scan with IV andoral contrast today and start IV fluids and antiemetics as well as analgesics. Unless she starts taking p.o.'s well I will likely place a feeding tube and start enteral feedings during this hospitalization. She will be getting a gastroenterology consultation as well as a foregut surgery consultation. documented in this [facility] Work Phone: 1(153) 449-765502-03-2024 Hospital Discharge instructions* Discharge Instructions* Jason Foster COAL CUTTER-MINI SHIFTER - 03/20/2023 3:21 PM EST What to [...] up in 1-2 weeks [facility]: 1(866) 654-444302-02-2024 Plan of care note* Care Plan - [...] pain meds throughout the shift Outcome: Progressing [facility]02-02-2024 Miscellaneous Notes* Care Plan - Nathalie [...] the [place] [facility] [place] yesterday[place] abdominal pain and sent home, [...] issue which will be best done at [facility] either as inpatient or outpatient, where she has ongoing work, or is a postoperative situation that has been discussed multiple times with the primary operating service (and I have discussed with Tiffanie Mendez CNP with their service and there appears to be a good plan for imaging studies), and can ba admitted by their service). documented in this [facility] Work Phone: 1(930) 973-680102-02-2024 Plan of care note* Care Plan - [...] include. Recommendations to address these barriers include. [facility]02-01-2024 Plan of care note* Care Plan [...] pain meds throughout the shift Outcome: Progressing [facility] Work Phone: 1(719) 658-195602-01-2024 Nurse Note* Andie Lugo RN - 03/18/2023 4:47 PM EST Pt resting quietly in bed, no distres noted [facility]02-01-2024 Nurse Note* Andie Lugo RN - 03/18/2023 3:17 PM EST Pt given IS and instructed how to use, pt verbalized understanding [facility] Work Phone: 1(336) 747-628802-01-2024 Nurse Note* Andie Lugo RN - 03/18/2023 2:50 PM EST Ronnie foster cnp into see pt [facility] Work Phone: 1([phone]) 680-346202-01-2024 Consult note* Nabila Moore RDN, SALVADOR - [...] 17 g, oral, Daily PRN, Tiffanie Mendez, COAL CUTTER-MINI SHIFTER thiamine (Vitamin B1) injection 100 mg, 100 mg, intravenous, Daily, Kurt Nguyen MD, 100 mg at 03/18/23 0811 Dietary Orders (From admission, onward) Start Ordered 03/16/23 1508 NPO Diet; Effective now Diet effective now 03/16/23 1509 Estimated Needs: Estimated Energy Needs Total Energy Estimated Needs (kCal): (7411-3241 kcals) Total Estimated Energy Need per Day (kCal/kg): (25-30 kcals/kg) Method for Estimating Needs: adjusted IBW Estimated Protein Needs Total Protein Estimated Needs (g): (68-81g Protein) Total Protein Estimated Needs (g/kg): (1-1.2 g/kg) Method for Estimating Needs: adjusted IBW Estimated Fluid Needs Total Fluid Estimated Needs (mL): (0958-5340 mL fluid) Method for Estimating Needs: 1 [...] Prescription: Individualized Nutrition Prescription Provided for : 7602-1580 kcals, 68-81g Protein, 1531-6666 mL fluid, provided via PO/NG, once diet advanced. Nutrition Interventions: Food and/or Nutrient Delivery Interventions Interventions: Enteral intake Enteral Intake: Modify composition of enteral nutrition, Modify rate of enteral nutrition Goal: When able to initiate Tube feeding, recommend Osmolite 1.5 @ goal rate of 45 mL/hr to [id number] kcals, 68g Protein, and 823 mL free [...] Needed?: 3-5 days Follow up Comment: 03/22/23 [facility]02-01-[facility]24 Consult note* Nabila Moore RDN, LD [...] Energy Needs Total Energy Estimated Needs (kCal): (5867-4609 kcals) Total Estimated Energy Need per Day (kCal/kg): (25-30 kcals/kg) Method for Estimating Needs: adjusted IBW Estimated Protein Needs Total Protein Estimated Needs (g): (68-81g Protein) Total Protein Estimated Needs (g/kg): (1-1.2 g/kg) Method for Estimating Needs: adjusted IBW Estimated Fluid Needs Total Fluid Estimated Needs (mL): (5014-2645 mL fluid) Method for Estimating Needs: 1 [...] Prescription: Individualized Nutrition Prescription Provided for : 5784-4368 kcals, 68-81g Protein, 3837-2537 mL fluid, provided via PO/NG, once diet advanced. Nutrition Interventions: Food and/or Nutrient Delivery Interventions Interventions: Enteral intake Enteral Intake: Modify composition of enteral nutrition, Modify rate of enteral nutrition Goal: When able to initiate Tube feeding, recommend Osmolite 1.5 @ goal rate of 45 mL/hr to [id number] kcals, 68g Protein, and 823 mL free [...] with liver biopsy in April 2020 at [facility] in evaluation of her chronic abdominal pain and intermittent food intolerance. She had a vertical sleeve gastrectomy at [facility] on September 03, 2020 for morbid obesity. She had a diagnostic laparoscopy on March 20, 2021 at [facility] for chronic pain thought to be secondary to an abdominal wall hernia. No hernia was seen at laparoscopy. She complained of gastroesophageal reflux disease and had her vertical sleeve gastrectomy converted to Tan-en-Y gastric bypass at [facility] on January 29, 2022. On March 06, 2022 she had an upper endoscopy at [facility] for epigastric abdominal pain. Her gastrojejunostomy was congested, edematous, with erosions and friable mucosa. The anastomosis was dilated and she was discharged on twice daily PPI. She had an upper endoscopy at [facility] onJune 23, 2022 for epigastric pain. At that time her gastrojejunostomy appeared normal. She continued to complain of abdominal pain and had an upper endoscopy at the [facility] on October 27, 2022. She was found to have food in her stomach and jejunum. There was no evidence of gastrojejunal ulcer. On November 11, 2022 she had laparoscopic closure of internal hernia at the jejunojejunostomy and ERCP through her gastric remnant for her abdominal pain. She was hospitalized at the [facility] on December 06, 2022 for abdominal [...] by laparotomy on March 05, 2023 at [facility]. She was discharged to home on March [...] medical history of MARSHAL (acute kidney injury) ([facility]), Autoimmune disorder ([facility]), Bipolar disorder ([facility]/HCC), BPH (benign prostatic hyperplasia), Cerebral aneurysm, Cervical cancer ([facility]/HCC), Cervical disc disease, Chronic kidney disease, CKD (chronic kidney disease), Cognitivedecline, Crohn's disease ([facility]/HCC), Dementia ([facility]/HCC), Dysphagia, Endometrial cancer ([facility]/HCC), Esophageal cancer ([facility]/HCC), Esophageal disease, ESRD (end stage renal disease) ([facility]), Fibromyalgia, primary, Fractures, Gastric cancer ([facility]/HCC), Gender dysphoria, GI (gastrointestinal bleed), Hemodialysis status ([facility]), Hernia, internal, History of peritoneal dialysis, HIV disease ([facility]/HCC), Immunocompromised ([facility]HCC), Liver disease, Lumbar disc disease, Mastocytosis, MS (multiple sclerosis) ([facility]), Muscular dystrophy ([facility]/HCC), Myasthenia gravis ([facility]/HCC), Neuromuscular disorder ([facility]HCC), Ovarian cancer ([facility]HCC), Pancreatitis, Peptic ulcer disease, Prematurity, PTSD (post-traumatic stress disorder), Schizophrenia ([facility]), Seizure disorder ([facility]HCC), Spinal stenosis, Substanceaddiction ([facility]/HCC), Syncope, TIA (transient ischemic attack), Ulcerative colitis [...] INDICATION: Signs/Symptoms:abdominal pain. COMPARISON: None. ACCESSION NUMBER(S): [id number] ORDERING CLINICIAN: TIFFANIE MENDEZ TECHNIQUE: Multiple fluoroscopic spot images were obtained during a single contrast upper GI with KUB. 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 Helper images demonstrate postsurgical changes from previous Tan-en-Y [...] Corie Garza 03/17/2023 5:00 PM Dictation workstation: [id number] Latest Reference Range & Units 03/17/23 07:04 [...] Kurt Matos MD * Cheyenne Mercedes Jansen, [employer]TER-MINI SHIFTER - 03/17/2023 10:29 AM EST Consults Reason [...] disease (CMS/HCC), Dementia (CMS/HCC), Dysphagia, Endometrial cancer ([facility]), Esophageal cancer ([facility]), Esophageal disease, ESRD (end stage renal disease) ([facility]HCC), Fibromyalgia, primary, Fractures, Gastric cancer (CMS/HCC), Gender dysphoria, GI (gastrointestinal bleed), Hemodialysis status ([facility]/HCC), Hernia, internal, History of peritoneal dialysis, HIV disease ([facility]CC), Immunocompromised ([facility]CC), Liver disease, Lumbar disc disease, Mastocytosis, MS (multiple sclerosis) ([facility]/HCC), Muscular dystrophy ([facility]HCC), Myasthenia gravis ([facility]HCC), Neuromuscular disorder ([facility]HCC), Ovarian cancer ([facility]HCC), Pancreatitis, Peptic ulcer disease, Prematurity, PTSD (post-traumatic stress disorder), Schizophrenia ([facility]HCC), Seizure disorder ([facility]HCC), Spinal stenosis, Substanceaddiction ([facility]HCC), Syncope, TIA (transient ischemic attack), Ulcerative colitis ([facility]HCC), Urinary tract infection, Uterine cancer ([facility]/HCC), or Vertigo. Surgical History She has a [...] and IV contrast. COMPARISON: None.. ACCESSION NUMBER(S): [id number] ORDERING CLINICIAN: TIFFANIE MENDEZ TECHNIQUE: Oral contrast [...] Corie Garza 03/16/2023 5:46 PM Dictation workstation: [id number] XR chest 1 view Result Date: 03/06/2023 Interpreted By: Sara Zarate, STUDY: XR CHEST 1 VIEW; 03/06/2023 7:32 am INDICATION: Signs/Symptoms:post op COMPARISON: None ACCESSION NUMBER(S): [id number] ORDERING CLINICIAN: JASON FOSTER TECHNIQUE: Frontal and [...] Sara Zarate 03/06/2023 1:48 PM Dictation workstation: [id number] XR chest 1 view Result Date: 03/05/2023 Interpreted By: Baldomero Hendrickson, STUDY: XR CHEST 1 VIEW; 03/05/2023 3:11 pm INDICATION: CLINICAL INFORMATION: Signs/Symptoms:NG tube placement confirmation. COMPARISON: 03/05/2019 at 745 hours ACCESSION NUMBER(S): [id number] ORDERING CLINICIAN: DESMOND TIRADO TECHNIQUE: Portable chest [...] Baldomero Hendrickson 03/05/2023 3:31 PM Dictation workstation: [id number] XR chest 1 view Result Date: 03/05/2023 Interpreted By: Nya Ahmadi, STUDY: XR CHEST 1 VIEW 03/05/2023 7:51 am INDICATION: Signs/Symptoms:confirm line placement COMPARISON: None available. ACCESSION NUMBER(S): [id number] ORDERING CLINICIAN: SERENA GEORGE TECHNIQUE: AP erect view of the chest FINDINGS: Right arm PICC line terminates in the SVC. There is no pneumothorax. The heart, mediastinum, and lungs are normally visualized. Right arm PICC line terminating in SVC without pneumothorax. No acute cardiopulmonary disease. Signed by: Nya Ahmadi 03/05/2023 7:54 AM Dictation workstation: [id number] Assessment/Plan NV, Epigastric Pain (LFTs are normal. [...] with abdominal pain. 32-year-old female presents to [facility] for chief complaint of abdominal pain, [...] emergency room close to her home near [place], [place] for further evaluation and was promptly transferred to [facility] for further evaluation and treatment. The [...] CKD (chronic kidney disease), Cognitivedecline, Crohn's disease ([facility]), Dementia ([facility]), Dysphagia, Endometrial cancer (CMS/HCC), Esophageal cancer (CMS/HCC), Esophageal disease, ESRD (end stage renal disease) ([facility]CC), Fibromyalgia, primary, Fractures, Gastric cancer (CMS/HCC), Gender dysphoria, GI (gastrointestinal bleed), Hemodialysis status ([facility]), Hernia, internal, History of peritoneal dialysis, HIV disease (CMS/HCC), Immunocompromised ([facility]), Liver disease, Lumbar disc disease, Mastocytosis, MS (multiple sclerosis) ([facility]CC), Muscular dystrophy ([facility]CC), Myasthenia gravis ([facility]CC), Neuromuscular disorder ([facility]CC), Ovarian cancer (CMS/HCC), Pancreatitis, Peptic ulcer disease, [...] to follow. JAMA Smith [facility] Work [facility] 1(104) 554-236702-01-2024 Plan of care note* Care Plan - Andie Lugo RN - 03/18/2023 11:05 AM EST The patient's goals for the shift include Free from pain The clinical goals for the shift include decrease nausea [facility] Work Phone: [phone]) 673-240302-01-2024 Nurse Note* Andie Lugo RN - 03/18/2023 7:27 AM EST Assumed care of pt, pt resting quietly in bed, ng to liws , will monitor [facility] Work Phone: [phone]) 305-110501-31-2024 Plan of care note* Care Plan - [...] pain meds throughout the shift Outcome: Progressing [facility] Work Phone: [phone] Consult note* Kurt Matos MD - 03/17/2023 [...] with liver biopsy in April 2020 at [facility] in evaluation of her chronic abdominal pain and intermittent food intolerance. She had a vertical sleeve gastrectomy at [facility] on September 03, 2020 for morbid obesity. She had a diagnostic laparoscopy on March 20, 2021 at [facility] for chronic pain thought to be secondary to an abdominal wall hernia. No hernia was seen at laparoscopy. She complained of gastroesophageal reflux disease and had her vertical sleeve gastrectomy converted to Tan-en-Y gastric bypass at [facility] on January 29, 2022. On March 06, 2022 she had an upper endoscopy at [facility] for epigastric abdominal pain. Her gastrojejunostomy was congested, edematous, with erosions and friable mucosa. The anastomosis was dilated and she was discharged on twice daily PPI. She had an upper endoscopy at [facility] onJune 23, 2022 for epigastric pain. At that time her gastrojejunostomy appeared normal. She continued to complain of abdominal pain and had an upper endoscopy at the [facility] on October 27, 2022. She was found to have food in her stomach and jejunum. There was no evidence of gastrojejunal ulcer. On November 11, 2022 she had laparoscopic closure of internal hernia at the jejunojejunostomy and ERCP through her gastric remnant for her abdominal pain. She was hospitalized at the [facility] on December 06, 2022 for abdominal [...] by laparotomy on March 05, 2023 at [facility]. She was discharged to home on March [...] kidney disease), Cognitivedecline, Crohn's disease (CMS/HCC), Dementia ([facility]CC), Dysphagia, Endometrial cancer (CMS/HCC), Esophageal cancer ([facility]CC), Esophageal disease, ESRD (end stage renal disease) ([facility]/HCC), Fibromyalgia, primary, Fractures, Gastric cancer ([facility]HCC), Gender dysphoria, GI (gastrointestinal bleed), Hemodialysis status ([facility]CC), Hernia, internal, History of peritoneal dialysis, HIV disease ([facility]CC), Immunocompromised ([facility]CC), Liver disease, Lumbar disc disease, Mastocytosis, MS (multiple sclerosis) ([facility]/HCC), Muscular dystrophy ([facility]CC), Myasthenia gravis ([facility]HCC), Neuromuscular disorder ([facility]HCC), Ovarian cancer ([facility]CC), Pancreatitis, Peptic ulcer disease, Prematurity, PTSD (post-traumatic stress disorder), Schizophrenia ([facility]CC), Seizure disorder ([facility]/HCC), Spinal stenosis, Substanceaddiction ([facility]/HCC), Syncope, TIA (transient ischemic attack), Ulcerative colitis ([facility]/HCC), Urinary tract infection, Uterine cancer ([facility]/HCC), or Vertigo. Surgical History She has a [...] INDICATION: Signs/Symptoms:abdominal pain. COMPARISON: None. ACCESSION NUMBER(S): [id number] ORDERING CLINICIAN: TIFFANIE MENDEZ TECHNIQUE: Multiple fluoroscopic spot images were obtained during a single contrast upper GI with KUB. 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 Kurt Matos MD [facility] Work Phone: [phone] Nurse Note* Cathy Madera RN - 03/17/2023 6:05 PM EST NG tube re inserted per order. Patient tolerated well. No complications. This nurse requested orderfor xray for placement of NG tube. Order received. Waiting on microbiology lab technician to verify placement per order. Will continue to monitor patient to ensure patient safety. [facility] Work Phone: [phone]) [phone] Plan of care note* Care Plan - [...] pain control, maintain and ensure patient safety. [facility] Work Phone: [phone] Nurse Note* Cathy Madera RN - 03/17/2023 [...] to re insert NG tube and supervisor dairy sanitation to low suction. Will re attempt with patients consent. [facility] Work Phone: [phone] Nurse Note* Cathy Madera RN - 03/17/2023 12:06 PM EST Patient transported to Xray for placement of NG. Patient off unit. [facility] Work Phone: [phone] Nurse Note* Cathy Madera RN - 03/17/2023 11:44 AM EST This nurse notified biological technician that patient had NG tube placed and needed Xray for placement verification. This nurse messaged Rosa YUN to notify her that NG tube was placed and needed separate order for NG tube placement per biological technician. Order received. Will continue to monitor patient to ensure patient safety. [facility] Work Phone: [phone] History and physical note* JAMA Judd - 03/17/2023 11:03 AM EST History Of Present Illness This is a 32-year-old female with past medical history of chronic abdominal pain, PCOS, PUD, depression, GERD, IBS, obesity (status post laparoscopic sleeve gastrectomy in August [address] Ku [id number] gastric bypass 01/29/[address] Kat) and [...] her local hospital and was transferred to [facility] per Dr. Magaña's request. Patient has longstanding [...] and IV contrast. COMPARISON: None.. ACCESSION NUMBER(S): [id number] ORDERING CLINICIAN: TIFFANIE MENDZE TECHNIQUE: Oral contrast was not administered. 75 [...] Corie Garza 03/16/2023 5:46 PM Dictation workstation: [id number] XR chest 1 view Result Date: 03/06/2023 Interpreted By: Sara Zarate, STUDY: XR CHEST 1 VIEW; 03/06/2023 7:32 am INDICATION: Signs/Symptoms:post op COMPARISON: None ACCESSION NUMBER(S): [id number] ORDERING CLINICIAN: JASON FOSTER TECHNIQUE: Frontal and [...] Sara Zarate 03/06/2023 1:48 PM Dictation workstation: [id number] XR chest 1 view Result Date: 03/05/2023 Interpreted By: Baldomero Hendrickson, STUDY: XR CHEST 1 VIEW; 03/05/2023 3:11 pm INDICATION: CLINICAL INFORMATION: Signs/Symptoms:NG tube placement confirmation. COMPARISON: 03/05/2019 at 745 hours ACCESSION NUMBER(S): [id number] ORDERING CLINICIAN: DESMOND TIRADO TECHNIQUE: Portable chest [...] Baldomero Hendrickson 03/05/2023 3:31 PM Dictation workstation: [id number] XR chest 1 view Result Date: 03/05/2023 Interpreted By: Nya Ahmadi, STUDY: XR CHEST 1 VIEW 03/05/2023 7:51 am INDICATION: Signs/Symptoms:confirm line placement COMPARISON: None available. ACCESSION NUMBER(S): [id number] ORDERING CLINICIAN: SERENA GEORGE TECHNIQUE: AP erect view of the chest FINDINGS: Right arm PICC line terminates in the SVC. There is no pneumothorax. The heart, mediastinum, and lungs are normally visualized. Right arm PICC line terminating in SVC without pneumothorax. No acute cardiopulmonary disease. Signed by: Nya Ahmadi 03/05/2023 7:54 AM Dictation workstation: [id number] Assessment and Plan -Abdominal pain/nausea -Median arcuate ligament syndrome, status post ligament release on 03/05/2023 -Obesity: status post laparoscopic sleeve gastrectomy in August [address] Ku and Tan-en-Y gastric bypass 01/29/[address] Kat 1. Abdominal pain/nausea: CT abdomen pelvis with IV contrast reviewed by Dr. Magaañ. Plan for upper GI series. - NG [...] Continue home iron supplementation GERD: Continue Pepcid [facility] Work Phone: [phone] History and physical note* JAMA Judd - 03/17/2023 11:03 AM EST History Of Present Illness This is a 32-year-old female with past medical history of chronic abdominal pain, PCOS, PUD, depression, GERD, IBS, obesity (status post laparoscopic sleeve gastrectomy in August [address] Ku fhoFqif-fn-C gastric bypass 01/29/[address] Kat) and [...] her local hospital and was transferred to [facility] per Dr. Magaña's request. Patient has longstanding [...] Paternal Grandfather Elan Artino Hypertension Paternal Grandfather Ealn Artino Anesthesia related problems Paternal Grandfather Elan Artino COPD Paternal Grandmother Grandmother Diabetes Paternal Grandmother Grandmother Asthma Brother Adán Moise Allergies Allergies Allergen Reactions Codeine Nausea/vomiting [...] and IV contrast. COMPARISON: None.. ACCESSION NUMBER(S): [id number] ORDERING CLINICIAN: TIFFANIE MENDEZ TECHNIQUE: Oral contrast [...] Corie Garza 03/16/2023 5:46 PM Dictation workstation: [id number] XR chest 1 view Result Date: 03/06/2023 Interpreted By: Sara Zarate, STUDY: XR CHEST 1 VIEW; 03/06/2023 7:32 am INDICATION: Signs/Symptoms:post op COMPARISON: None ACCESSION NUMBER(S): [id number] ORDERING CLINICIAN: JASON FOSTER TECHNIQUE: Frontal and [...] Sara Zarate 03/06/2023 1:48 PM Dictation workstation: [id number] XR chest 1 view Result Date: 03/05/2023 Interpreted By: Baldomero Hendrickson, STUDY: XR CHEST 1 VIEW; 03/05/2023 3:11 pm INDICATION: CLINICAL INFORMATION: Signs/Symptoms:NG tube placement confirmation. COMPARISON: 03/05/2019 at 745 hours ACCESSION NUMBER(S): [id number] ORDERING CLINICIAN: DESMOND TIRADO TECHNIQUE: Portable chest [...] Baldomero Hendrickson 03/05/2023 3:31 PM Dictation workstation: [id number] XR chest 1 view Result Date: 03/05/2023 Interpreted By: Nya Ahmadi, STUDY: XR CHEST 1 VIEW 03/05/2023 7:51 am INDICATION: Signs/Symptoms:confirm line placement COMPARISON: None available. ACCESSION NUMBER(S): [id number] ORDERING CLINICIAN: SERENA GEORGE TECHNIQUE: AP erect view of the chest FINDINGS: Right arm PICC line terminates in the SVC. There is no pneumothorax. The heart, mediastinum, and lungs are normally visualized. Right arm PICC line terminating in SVC without pneumothorax. No acute cardiopulmonary disease. Signed by: Nya Ahmadi 03/05/2023 7:54 AM Dictation workstation: [id number] Assessment and Plan -Abdominal pain/nausea -Median arcuate [...] supplementation GERD: Continue Pepcid [facility] Work Phone: [phone] Nurse Note* Cathy Madera RN - 03/17/2023 10:58 AM EST Patient is ordered NPO this nurse received verbal orders with readback to administer oral medication per Rosa YUN at bedside. Will continue to monitor patient to ensure patient safety. [facility] Work Phone: [phone] Nurse Note* Cathy Madera RN - 03/17/2023 [...] to monitor patient to ensure patient safety. [facility] Work Phone: [phone] Consult note* Cheyenne Jansen, JAMA - 03/17/2023 [...] Gender dysphoria, GI (gastrointestinal bleed), Hemodialysis status ([facility]CC), Hernia, internal, History of peritoneal dialysis, HIV disease (CMS/HCC), Immunocompromised (CMS/HCC), Liver disease, Lumbar disc disease, Mastocytosis, MS (multiple sclerosis) (CMS/HCC), Muscular dystrophy (CMS/HCC), Myasthenia gravis (CMS/HCC), Neuromuscular disorder (CMS/HCC), Ovarian cancer (CMS/HCC), Pancreatitis, Peptic ulcer disease, Prematurity, PTSD (post-traumatic stress disorder), Schizophrenia (CMS/HCC), Seizure disorder ([facility]/HCC), Spinal stenosis, Substanceaddiction ([facility]/HCC), Syncope, TIA (transient ischemic attack), Ulcerative colitis ([facility]/HCC), Urinary tract infection, Uterine cancer ([facility]/HCC), or Vertigo. Surgical History She has a [...] and IV contrast. COMPARISON: None.. ACCESSION NUMBER(S): [id number] ORDERING CLINICIAN: TIFFANIE MENDEZ TECHNIQUE: Oral contrast [...] Corie Garza 03/16/2023 5:46 PM Dictation workstation: [id number] XR chest 1 view Result Date: 03/06/2023 Interpreted By: Sara Zarate, STUDY: XR CHEST 1 VIEW; 03/06/2023 7:32 am INDICATION: Signs/Symptoms:post op COMPARISON: None ACCESSION NUMBER(S): [id number] ORDERING CLINICIAN: JASON FOSTER TECHNIQUE: Frontal and [...] Sara Zarate 03/06/2023 1:48 PM Dictation workstation: [id number] XR chest 1 view Result Date: 03/05/2023 Interpreted By: Baldomero Hendrickson, STUDY: XR CHEST 1 VIEW; 03/05/2023 3:11 pm INDICATION: CLINICAL INFORMATION: Signs/Symptoms:NG tube placement confirmation. COMPARISON: 03/05/2019 at 745 hours ACCESSION NUMBER(S): [id number] ORDERING CLINICIAN: DESMOND TIRADO TECHNIQUE: Portable chest [...] Baldomero Hendrickson 03/05/2023 3:31 PM Dictation workstation: [id number] XR chest 1 view Result Date: 03/05/2023 Interpreted By: Nya Ahmadi, STUDY: XR CHEST 1 VIEW 03/05/2023 7:51 am INDICATION: Signs/Symptoms:confirm line placement COMPARISON: None available. ACCESSION NUMBER(S): [id number] ORDERING CLINICIAN: SERENA GEORGE TECHNIQUE: AP erect view of the chest FINDINGS: Right arm PICC line terminates in the SVC. There is no pneumothorax. The heart, mediastinum, and lungs are normally visualized. Right arm PICC line terminating in SVC without pneumothorax. No acute cardiopulmonary disease. Signed by: Nya Ahmadi 03/05/2023 7:54 AM Dictation workstation: [id number] Assessment/Plan NV, Epigastric Pain (LFTs are normal. [...] in the presence of Dr. Jah Nguyen. [facility] Work Phone: [phone] Nurse Note* Cathy Madera RN - 03/17/2023 [...] to monitor patient to ensure patient safety. [facility] Work Phone: [phone] Consult note* Lizzlesia Brunson, [employer]I [employer]IFTER - 03/16/2023 5:09 PM EST Consults Reason For Consult Medical management History Of Present Illness Abbey Garcia is a 32 y.o. female presenting with abdominal pain. 32-year-old female presents to [facility] for chief complaint of abdominal pain, [...] emergency room close to her home near [place], [place] for further evaluation and was promptly transferred to [facility] for further evaluation and treatment. The [...] CKD (chronic kidney disease), Cognitivedecline, Crohn's disease ([facility]), Dementia ([facility]/HCC), Dysphagia, Endometrial cancer ([facility]/HCC), Esophageal cancer ([facility]/HCC), Esophageal disease, ESRD (end stage renal disease) ([facility]/HCC), Fibromyalgia, primary, Fractures, Gastric cancer (CMS/HCC), Gender dysphoria, GI (gastrointestinal bleed), Hemodialysis status ([facility]/HCC), Hernia, internal, History of peritoneal dialysis, HIV disease ([facility]/HCC), Immunocompromised ([facility]/HCC), Liver disease, Lumbar disc disease, Mastocytosis, MS (multiple sclerosis) ([facility]/HCC), Muscular dystrophy ([facility]/HCC), Myasthenia gravis ([facility]/HCC), Neuromuscular disorder ([facility]/HCC), Ovarian cancer ([facility]/HCC), Pancreatitis, Peptic ulcer disease, Prematurity, PTSD (post-traumatic stress disorder), Schizophrenia ([facility]/HCC), Seizure disorder ([facility]/HCC), Spinal stenosis, Substanceaddiction ([facility]/HCC), Syncope, TIA (transient ischemic attack), Ulcerative colitis ([facility]/HCC), Urinary tract infection, Uterine cancer ([facility]), or Vertigo. Surgical History She has [...] consult. Will continue to follow. JAMA Smith [facility] Work Phone: 1(230) 340-798901-30-2024 Emergency department Note* Grecia Oates RN - 03/16/2023 5:00 PM EST Pt is requesting pain medication. MD Barker notified. Grecia Oates RN 03/16/23 170 [facility] Work Phone: [phone] 344-536901-30-2024 Emergency department Note* Grecia Oates RN - 03/16/2023 5:00 PM EST Pt is requesting pain medication. MD aBrker notified. Grecia Oates RN 03/16/23 170 * Grecia Oates RN - 03/16/2023 3:54 PM EST Pt has not been able to sustain orthostatic VS. She is not able to stand at this time. Grecia Oates RN 03/16/23 9733 * Grecia Oates RN - 03/16/2023 1:46 PM EST Pt arrived from [place] due to abdominal pain due to celiac [...] dictation software, please excuse any errors in shale processing technician. Melisa Barker MD 03/16/231919 * HENNY Miller-C - 03/16/2023 1:37 PM EST HPI Chief Complaint Patient presents with Abdominal Pain Patient is a 32-year-old female history of gastric bypass surgery, median arcuate ligament syndromewith vascular surgery performed on March 05 transferred to [facility] [place] from [facility] in [place] for abdominal pain and nausea vomiting. Patient states the abdominal pain is mid abdominal, no signs of surgical scar infection, states she has been unable to tolerate p.o. intake for 2 days now. She states she feels a burning cramping sensation around where her gastric pouch was placed. ER spoke with Dr. Magaña vascular surgeon who requested for patient to be sent to [facility] for further evaluation. Patient denies recent [...] Tue Mar 16, 2023 1421 Vascular surgery CAD APPLICATION SUPPORT SPECIALIST wanted to put in the imaging study [...] recognition software. Please excuse any errors of shale processing technician. My thought process and reason for plan [...] from: Patient, EMS, attending ER physician at [facility] Social Determinants of Health considered during [...] 5 mg (5 mg intravenous Given 03/16/23 9378) Diagnostic/tests Labs Reviewed CBC WITH AUTO DIFFERENTIAL [...] and has been validated for use at [facility]. Negative results do not preclude COVID-19 infections or Influenza A/B infections, and should not be used as the sole basis for diagnosis, treatment, or other management decisions. If Influenza A/B and RSV PCR results are negative, testing for Parainfluenza virus, Adenovirus and Metapneumovirus is routinely performed for [facility] pediatric oncology and intensive care inpatients, and [...] Dr. Magaña transferred ER to ER from [place] for further evaluation of her abdominal pain [...] BLEEDING. Procedure Procedures Leatha Paul PA-C 03/16/23 8882 * Linda Ngo RN - 03/16/2023 1:37 [...] Ngo RN 03/17/23 0826 documented in this [facility] Work Phone: 1(689) 585-958301-30-2024 Emergency department Note* Grecia Oates RN - 03/16/2023 3:54 PM EST Pt has not been able to sustain orthostatic VS. She is not able to stand at this time. Grecia Oates RN 03/16/23 0341 [facility] Work Phone: 1([phone]) 485-441301-30-2024 Note* Significant Event - Channing Zita Elvin, [...] the emergency department [place] [facility] yesterdaywith abdominal pain and sent home, [...] issue which will be best done at [facility] either as inpatient or outpatient, where she has ongoing work, or is a postoperative situation that has been discussed multiple times with the primary operating service (and I have discussed with Tiffanie Mendez CNP with their service and there appears to be a good plan for imaging studies), and can ba admitted by their service). [facility] Work Phone: 1([phone]) 168-684601-30-2024 Evaluation + Plan noteExtracted from: Title:ED Note [...] Date:08/04/2023 09:45:00 AM Scheduled Provider:Rajni Rouse MD Location:[facility] Appointment Type:URO Office Visit Future Scheduled Tests Radiology* US Renal 06/10/22 [facility]01-30-2024 Emergency department Triage note* Grecia Oates RN - 03/16/2023 1:46 PM EST Pt arrived from [place] due to abdominal pain due to celiac rupture. She [place] be here for vascular surgery? Pt is A&O x3. States terrible pain in abdomen that doesn't go away. C/O nausea, vomiting, headaches, body chills. [facility] Work Phone: 1([phone]) 284-667201-30-2024 Emergency department Note* Linda Ngo RN - 03/16/2023 1:37 PM EST Into assess patient. Patient awake and A&OX4. Patient complains of incisional pain and requested Percocet for relief, rates pain 7/10. Assessed incisional wound on abdomen, incision well approximated, dry and scabbed, no drainage noted. Patient admits to surgery On 03/05/23 for MALS. Medicated with percocet as requested. Linda Ngo RN 03/17/23 08 [facility]01-30-2024 Emergency department Note* Linda Ngo RN - 03/16/2023 1:37 PM EST Report called to DEE Ortiz updated on patient's status. Linda Ngo RN 03/17/23825 [facility] Work Phone: [phone]) [phone] Physician Emergency department Note* Melisa Barker MD [...] dictation software, please excuse any errors in shale processing technician. Melisa Barker MD 03/16/231919 [facility] Work Phone: [phone]) 420-430101-30-2024 Physician Emergency department Note* Leatha Paul PA-C - 03/16/2023 1:37 PM EST HPI Chief Complaint Patient presents with Abdominal Pain Patient is a 32-year-old female history of gastric bypass surgery, median arcuate ligament syndromewith vascular surgery performed on March 05 transferred to [facility] [place] from [facility] in [place] for abdominal pain and nausea vomiting. Patient states the abdominal pain is mid abdominal, no signs of surgical scar infection, states she has been unable to tolerate p.o. intake for 2 days now. She states she feels a burning cramping sensation around where her gastric pouch was placed. ER spoke with Dr. Magaña vascular surgeon who requested for patient to be sent to [facility] for further evaluation. Patient denies recent [...] e Mar 16, 2023 1421 Vascular surgery CAD APPLICATION SUPPORT SPECIALIST wanted to put in the imaging study [...] recognition software. Please excuse any errors of shale processing technician. My thought process and reason for plan [...] from: Patient, EMS, attending ER physician at [facility] Social Determinants of Health considered during [...] and has been validated for use at [facility]. Negative results do not preclude COVID-19 infections or Influenza A/B infections, and should not be used as the sole basis for diagnosis, treatment, or other management decisions. If Influenza A/B and RSV PCR results are negative, testing for Parainfluenza virus, Adenovirus and Metapneumovirus is routinely performed for [facility] pediatric oncology and intensive care inpatients, and [...] Dr. Magaña transferred ER to ER from [place] for further evaluation of her abdominal pain [...] Procedure Procedures Leatha Paul PA-C 03/16/23 1643 [facility] Work Phone: 1(249) 183-412001-29-2024 Hospital Discharge instructions Patient Education 03/15/2023 18:18:58 [...] Follow these instructions at home: Medicines Take ybxc-vdq-vbnboby and prescription medicines only as told by [...] Watch your condition for any changes. Take tptv-qne-wihkbkh and prescription medicines only as told by [...] provider. Document Revised: 03/22/2020 Document Reviewed: 06/12/2019 [employer] Patient Education 2022 [employer]. Follow Up Care 03/15/2023 11:45:15 With:Your surgeon Dr. Magaña Address:Unknown When:03/16/2023 17:30:59 [facility]01-29-2024 Evaluation + Plan noteExtracted from: Title:ED [...] 09:45:00 AM Scheduled Provider:Nasim JOHNSON, Rajni Ballesteros Location:[facility] Appointment Type:URO Office Visit Future Scheduled Tests Radiology* US Renal 06/10/22 [facility]01-24-2024 Hospital Discharge instructions* Discharge Instr - Diet* Yue German, RN - 03/10/2023 3:19 PM EST Regular Diet [facility]: [phone]) 521-808401-24-2024 History of Present illness Narrative* Keesha Jack - 03/10/2023 2:30 PM EST Spiritual Care Visit Clinical Encounter Type Visited With: Patient Routine Visit: Introduction Continue Visiting: No Values/Beliefs Spiritual Requests During Hospitalization: Blesssing. Going home today Sacramental Encounters Communion: Does not want communion Communion Given Indicator: No Sacrament of Sick-Anointing: Patient declined anointing Keesha Jack * Chantale Agrawal [facility] - 03/10/2023 1:58 PM EST Pt has been cleared by vascular. Update: Pt cleared for dc. Updates ent to [facility] who the pt has already been active with, F2F, dc summary and AVS sent via [employer], [facility] in 1-2 days. Pt ok to dc. 03/10/23 6435 Discharge Planning Patient expects to be discharged to: [facility] * Tiffanie Galvan Marysol, COAL CUTTER-MINI SHIFTER - 03/10/2023 11:32 AM EST Images from [...] for p.o. Valium and Percocet sent to [facility] [place] pharmacy - Follow-up orders placed for 1 month virtual appoint with Dr. Magaña - Work note faxed to her work as well as uploaded into [employer] - Cleared for discharge from vascular standpoint. [...] LE Dressing: Yes LE Dressing Adaptive Equipment: Furnace Installer Helper, Sock aide Pants Level of Assistance: Setup, [...] functional mobility a short household distance at [facility] for safety with close S. Pt demonstrating fair+/good standing balance with increased fatigue noted throughout task Outcome Measures:[facility] Daily Activity Putting on and taking off [...] via laparotomy (03/05). Spoke with RN and MINI SHIFTER regarding plans for consult. Theplan is for [...] cream, , Topical, TID PRN, Alicia Toro, COAL CUTTER-MINI SHIFTER enoxaparin (Lovenox) syringe 40 mg, 40 mg, subcutaneous, Daily, Chrissy Harris PA-C, 40 mg at 03/09/23 0821 escitalopram (Lexapro) tablet 20 mg, 20 mg, oral, Daily, Chrissy aHrris PA-C, 20 mg at 03/09/23 0821 famotidine [...] LE Dressing: Yes LE Dressing Adaptive Equipment: Furnace Installer Helper, Sock aide Pants Level of Assistance: Setup, [...] advice provided to abside by precautions Outcome Measures:[facility] Daily Activity Putting on and taking off [...] by discharge. Outcome: Progressing * Alicia Toro, COAL CUTTER-MINI SHIFTER - 03/09/2023 10:50 AM EST Abbey Garcia [...] INDICATION: Signs/Symptoms:post op COMPARISON: None ACCESSION NUMBER(S): [id number] ORDERING CLINICIAN: JASON FOSTER TECHNIQUE: Frontal and [...] Sara Zarate 03/06/2023 1:48 PM Dictation workstation: [id number] Physical Exam Constitutional: Appearance: Normal appearance. HENT: [...] steps, 1 rail, non-reciprocating pattern. Outcome Measures: [facility] Basic Mobility Turning from your back to [...] End: 03/20/23 Resolved: 03/09/23 * Jason Foster, COAL CUTTER-MINI SHIFTER - 03/09/2023 10:24 AM EST Abbey Garcia [...] Morrell - 03/09/2023 9:24 AM EST [facility] pt is already active with them and are able to continue to provide Rn for tpn and added PT. 03/09/23 0923 Discharge Planning Patient expects to be discharged to: [facility] * ILIANA Morrell - 03/08/2023 2:52 PM EST [facility]. Pt lives in a house with her and 3 kids in two story house with first floor setup. 5 steps to enter the house. Pt drives, works, independent for mobility. Pt wears glasses. Only other medical supplies at home are for TPN. Pts PCP is Dr Jaquan Morrow with [facility], prescriptions filled through [facility] in [place]. Discussion around dc planning needs with the pt stating she will probably benefit from home health PT. Referrals sent to homecare agencies that service where she lives, these agencies include [facility], [address], [facility], [facility], [facility], await responses. 03/08/23 1895 Discharge Planning Patient expects to be discharged to: Home with [facility] * Anam hKoury, PT - 03/08/2023 1:16 PM EST Physical [...] prior to attempting to sit Outcome Measures: [facility] Basic Mobility Turning from your back to [...] Start: 03/06/23 Expected End: 03/20/23 * Carmen hCen, FLAQUITO - 03/08/2023 12:47 PM EST Occupational [...] required d/t increase pain and fatigue Outcome Measures:[facility] Daily Activity Putting on and taking off [...] tasks by discharge. Outcome: Progressing * Alicia Toor, COAL CUTTER-MINI SHIFTER - 03/08/2023 11:04 AM EST Abbey Garcia [...] INDICATION: Signs/Symptoms:post op COMPARISON: None ACCESSION NUMBER(S): [id number] ORDERING CLINICIAN: JASON FOSTER TECHNIQUE: Frontal and [...] Sara Zarate 03/06/2023 1:48 PM Dictation workstation: [id number] Physical Exam Constitutional: Appearance: Normal appearance. HENT: [...] INDICATION: Signs/Symptoms:post op COMPARISON: None ACCESSION NUMBER(S): [id number] ORDERING CLINICIAN: JASON FOSTER TECHNIQUE: Frontal and [...] Sara Zarate 03/06/2023 1:48 PM Dictation workstation: [id number] Physical Exam Constitutional: Appearance: Normal appearance. HENT: [...] due to increased fatigue levels. Outcome Measures: [facility] Basic Mobility Turning from your back to [...] INDICATION: Signs/Symptoms:post op COMPARISON: None ACCESSION NUMBER(S): [id number] ORDERING CLINICIAN: JASON FOSTER TECHNIQUE: Frontal and [...] Sara Zarate 03/06/2023 1:48 PM Dictation workstation: [id number] Physical Exam Constitutional: General: She is not [...] proph Karma Sharpe MD * Jason Foster, COAL CUTTER-MINI SHIFTER - 03/06/2023 1:57 PM EST Abbey Garcia [...] 50 mg, oral, BID Continuous medications potassium oholymzq-X2-7.9%NaCl, 125 mL/hr, Last Rate: 125 mL/hr (03/06/23 [...] of this patient. 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) Hand Dominance: Right Prior Function Comments: pt was active and driving in community; 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 ADL: Eating Assistance: Independent Grooming Assistance: Moderate [...] Gross Grasp: Functional Coordination: Functional Outcome Measures: [facility] Daily Activity Putting on and taking off [...] Prior Function Per Pt/Caregiver Report Level of [place]: Independent with ADLs and functional transfers, Independent with homemaking with ambulation Receives Help From: (spouse and mother) ADL Assistance: Independent Ambulatory Assistance: Independent Prior Function Comments: pt was active and driving in community; 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 Take before meals. Pt to lemon picker prescription ondansetron ODT (Zofran-ODT) 4 mg disintegrating [...] Grandmother Diabetes Paternal Grandmother Grandmother Asthma Brother [facility] Medications: potassium umqjcwgb-P7-9.9%NaCl, 125 mL/hr, Last Rate: 125 mL/hr (03/06/23 0700) Current Facility-Administered Medications: acetaminophen (Tylenol) tablet 650 mg, 650 mg, oral, q4h PRN OR acetaminophen (Tylenol) oral liquid 650 mg, 650 mg, oral, q4h PRN OR acetaminophen (Tylenol) suppository 650 mg, 650 mg, rectal, q4h PRN, Jason Foster, COAL CUTTER-MINI SHIFTER albuterol 2.5 mg /3 mL (0.083 %) [...] mg, 20 mg, intravenous, BID, Baldomero Richards, [facility], 20 mg at 03/05/232142 ferrous sulfate (325 [...] ICU skin protocol Ethics/Code Status: Full code Transplant Registered Nurse: DVT Prophylaxis: Lovenox GI Prophylaxis: pepcid Bowel Regimen: miralax Diet: Clear liquids CVC: none [place]: yes - left radial Long: yes Restraints: no Dispo: ICU Critical Care Time: 40 minutes Chrissy Harris PA-C documented in this [facility] Work Phone: 1([phone]) 398-493901-24-2024 Nurse Note* Edilia Darby RN - 03/10/2023 11:57 AM EST Patient with Rt arm dual lumen picc, dressing D&I, red lumen in use without difficulty, purple lumen flushes easily and with positive blood return, curos cap applied. [facility]01-24-2024 Nurse Note* Edilia Darby RN - [...] scanned for over 650cc, pt straight cath [id number] * Olga Paz RN - 03/07/2023 5:47 [...] unit from PACU, unable to transfer in [facility]. No admit order yet. PACU Rns saw the warning note when trying to transfer the patient without admit orders. PACU staff will reach out to vascular doctor and CAD APPLICATION SUPPORT SPECIALIST for the order. * Ron Manecra RN - 03/05/2023 1:58 PM EST Informed JAVA WEB DEVELOPER to ask Dr. Magaña for admit orders prior to transfer. [facility] Work Phone: 1(966) 268-682001-24-2024 Nurse Note* Nadia Zee RN - 03/10/2023 11:36 AM EST Long catheter removed [facility]01-24-2024 Nurse Note* Eileen Austin RN - 03/10/2023 12:14 AM EST Blood sugar 79 gave patient hailee crackers and pudding. Complained 08/24 pain percocet was given [facility]01-23-2024 Consult note* Jin Vargas MD - [...] medical history of MARSHAL (acute kidney injury) ([facility]/HCC), Autoimmune disorder (CMS/HCC), Bipolar disorder (CMS/HCC), BPH (benign prostatic hyperplasia), Cerebral aneurysm, Cervical cancer ([facility]/HCC), Cervical disc disease, Chronic kidney disease, CKD (chronic kidney disease), Cognitivedecline, Crohn's disease (CMS/HCC), Dementia (CMS/HCC), Dysphagia, Endometrial cancer (CMS/HCC), Esophageal cancer (CMS/HCC), Esophageal disease, ESRD (end stage renal disease) ([facility]), Fibromyalgia, primary, Fractures, Gastric cancer ([facility]/HCC), Gender dysphoria, GI (gastrointestinal bleed), Hemodialysis status ([facility]/HCC), Hernia, internal, History of peritoneal dialysis, HIV disease ([facility]/HCC), Immunocompromised ([facility]/HCC), Liver disease, Lumbar disc disease, Mastocytosis, MS (multiple sclerosis) ([facility]/HCC), Muscular dystrophy ([facility]/HCC), Myasthenia gravis ([facility]/HCC), Neuromuscular disorder (CMS/HCC), Ovarian cancer ([facility]/HCC), Pancreatitis, Peptic ulcer disease, Prematurity, PTSD (post-traumatic stress disorder), Schizophrenia (CMS/HCC), Seizure disorder ([facility]/HCC), Spinal stenosis, Substanceaddiction ([facility]/HCC), Syncope, TIA (transient ischemic attack), Ulcerative colitis [...] care of this patient. Jin Vargas MD [facility] Work Phone: 1(669) 995-993101-23-2024 Consult note* Jin Vargas MD - 03/09/2023 [...] (benign prostatic hyperplasia), Cerebral aneurysm, Cervical cancer ([facility]/HCC), Cervical disc disease, Chronic kidney disease, CKD (chronic kidney disease), Cognitivedecline, Crohn's disease ([facility]/HCC), Dementia ([facility]/HCC), Dysphagia, Endometrial cancer ([facility]/HCC), Esophageal cancer ([facility]/HCC), Esophageal disease, ESRD (end stage renal disease) ([facility]/HCC), Fibromyalgia, primary, Fractures, Gastric cancer ([facility]/HCC), Gender dysphoria, GI (gastrointestinal bleed), Hemodialysis status ([facility]), Hernia, internal, History of peritoneal dialysis, HIV disease ([facility]/HCC), Immunocompromised ([facility]/HCC), Liver disease, Lumbar disc disease, Mastocytosis, MS (multiple sclerosis) ([facility]/HCC), Muscular dystrophy ([facility]/HCC), Myasthenia gravis ([facility]/HCC), Neuromuscular disorder ([facility]/HCC), Ovarian cancer ([facility]/HCC), Pancreatitis, Peptic ulcer disease, Prematurity, PTSD (post-traumatic stress disorder), Schizophrenia ([facility]), Seizure disorder ([facility]), Spinal stenosis, Substanceaddiction ([facility]/HCC), Syncope, TIA (transient ischemic attack), Ulcerative colitis ([facility]/HCC), Urinary tract infection, Uterine cancer ([facility]), or Vertigo. 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 She was seen at [facility] by Dr. Kat and underwent an appendectomy [...] She had a CT angiogram recently at [facility] but this is not available for [...] This is with Dr. Ramos over the [facility]. Currently any oral intake will result [...] mg, 20 mg, intravenous, BID, Baldomero Richards, [facility], 20 mg at 03/06/23 0854 ferrous sulfate (325 mg ferrous sulfate) tablet 1 tablet, 1 tablet, oral, Daily with breakfast, Desmond Tirado PA-C, 1 tablet at 03/06/23 0907 glucagon (Glucagen) injection 1 mg, 1 mg, intramuscular, q15 min PRN, Desmond Tirado PA-C HYDROmorphone (Dilaudid) injection 0.5 mg, 0.5 mg, intravenous, q2h PRN, Jason Foster APRN-MINI SHIFTER, 0.5 mg at 03/06/23 0854 hydrOXYzine HCL [...] mg, 4mg, intravenous, q8h PRN, Jason Foster COAL CUTTER-MINI SHIFTER, 4 mg at 03/06/23 0603 oxyCODONE-acetaminophen (Percocet) 5-325 mg per tablet 1 tablet, 1 tablet, oral, q4h PRN, Jason Mckeon APRN-MINI SHIFTER polyethylene glycol (Glycolax, Miralax) packet 17 g, [...] Follow up Comment: 03/09/23 documented in this [facility] Work Phone: 1(437) 108-117501-23-2024 Nurse Note* Yue Ferris RN - 03/09/2023 2:22 PM EST Upon rounding right upper arm dual lumen PICC with current CHG dressing dry and intact. One lumen in use, one with brisk blood return and flushes easily, Curos cap intact. [facility]01-22-2024 Plan of care note* Care Plan - Danny Middleton RN - 03/08/2023 11:21 PM EST The patient's goals for the shift include rest The clinical goals for the shift include pain will be controled overnight. [facility]01-22-2024 Miscellaneous Notes* Care Plan - Danny [...] Promote/optimize nutrition Outcome: Progressing Flowsheets (Taken 03/08/2023 9198) Promote/optimize nutrition: Monitor/record intake including meals Consume [...] in plan/prevention/treatment measures 03/05/2023 1549 by Ron Manecra RN Outcome: Progressing 03/05/2023 1549 by Ron [...] by end of shift 03/05/2023 1549 by oRn Mancera RN [...] Procedures Release Median Arcuate Ligament by LAPAROTOMY [id number] - [place] UNLISTED PX ABDOMEN MUSCULOSKELETAL SYSTEM Surgeons * Sherry Magaña - Primary Resident/Fellow/Other Stick Welder: Surgeon(s) and Role: Procedure Summary Anesthesia: General ASA: III Anesthesia Staff: Anesthesiologist: Serena George DO OUTSIDE EVENT SALES SPECIALIST: Maricruz Yip APRN-THOMAS Estimated Blood Loss: 2mL [...] EXAM Sherry Magaña MD 03/05/2023 1125 Staff: Offset Printing Operator: Mary Mccabe RN; Natalie Young RN Scrub Person: Nadia Escobedo; Thu Ford Drains and/or Catheters: NG/OG/Feeding Tube NG - [place] sump 16 Fr Right nostril (Active) Tube [...] MEMBRANE, SEPRAFILM, 5 X 6 IN - [id number] Implanted Findings: heavily inflammed ligamentous tissues and [...] entire procedure. Sherry Magaña documented in this [facility] Work Phone: [phone]) 374-492701-22-2024 Plan of care note* Care Plan - [...] Promote/optimize nutrition Outcome: Progressing Flowsheets (Taken 03/08/2023 3150) Promote/optimize nutrition: Monitor/record intake including meals Consume [...] meds throughout the shift Outcome: Progressing . [facility]01-22-2024 Plan of care note* Care Plan - Olga Paz RN - 03/08/2023 2:27 AM EST The patient's goals for the shift include rest The clinical goals for the shift include increase activity Over the shift, the patient did not make progress toward the following goals. Barriers to progression include weak/pain. Recommendations to address these barriers include administer medications/interventions as ordered. [facility] Work Phone: [phone] 709-751901-22-2024 Nurse Note* Olga Paz RN - 03/08/2023 1:[address] Oconnor notified of retained urine. Order to insert long catheter. 16F long catheter placed, clear yellow urine return. Pt tolerated well. [facility]01-22-2024 Nurse Note* Olga Paz RN - 03/08/2023 12:48 AM EST Pt unable to urinate but continues to have an urge to do so. Bladder scan performed with 1152ml found. Page out to hospitalist. [facility] Work Phone: 1(762) 253-878401-21-2024 Nurse Note* Nadia Zee RN - 03/07/2023 5:09 PM EST Pt with 10cc urine output since long removed, bladder scanned for over 650cc, pt straight cath [id number] [facility] Work Phone: 1(103) 571-211701-21-2024 Plan of care note* Care Plan - Nadia Zee RN - 03/07/2023 8:50 AM EST The patient's goals for the shift include rest The clinical goals for the shift include increase activity Over the shift, the patient did not make progress toward the following goals. Barriers to progression include . Recommendations to address these barriers include . [facility] Work Phone: 1(545) 849-509001-21-2024 Nurse Note* Olga Paz RN - 03/07/2023 5:47 AM EST Long catheter removed per order. Pt tolerated well [facility] Work Phone: 1(533) 111-385001-20-2024 Plan of care note* Care Plan - Olga Paz RN - 03/06/2023 8:57 PM EST The patient's goals for the shift include rest The clinical goals for the shift include increase activity Over the shift, the patient did not make progress toward the following goals. Barriers to progression include weak/pain. Recommendations to address these barriers include encouragement/administer medications/interventions as ordered. [facility] Work Phone: 1(767) 364-418301-20-2024 Nurse Note* Vic Gilliland RN - 03/06/2023 4:22 PM EST Seeking clarification of appropriate disposition of patient and possible transfer to SDU. Patient understands possibility of transfer. 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 She was seen at [facility] by Dr. Kat and underwent an appendectomy [...] She had a CT angiogram recently at [facility] but this is not available for [...] This is with Dr. Ramos over the [facility]. Currently any oral intake will result [...] 650 mg, rectal, q4h PRN, Jason Foster, COAL CUTTER-MINI SHIFTER albuterol 2.5 mg /3 mL (0.083 %) [...] mg, 20 mg, intravenous, BID, Baldomero Richards, [facility], 20 mg at 03/06/23 0854 ferrous [...] Needed?: 3-5 days Follow up Comment: 03/09/23 [facility]01-20-2024 Plan of care note* Care Plan [...] Recommendations to address these barriers include steroids. [facility] Work Phone: 1([phone] 439-597501-20-2024 Nurse Note* Vic Gilliland RN - 03/06/2023 9:01 AM EST Returned to bed with assist of two. Head of bed elevated 45 degrees. [facility] Work Phone: [phone] 850-820701-19-2024 Nurse Note* Ron Mancera RN - 03/05/2023 4:[address] Magaña at bedside, informed of the muscle spasm and administering PRN diazepam. No new orders placed. Plan to remove NGT tomorrow morning. [facility] Work Phone: [phone]) 353-976201-19-2024 Plan of care note* Care Plan - [...] 1549 by Ron Mancera RN Outcome: Progressing [facility] Work Phone: 1(259) 572-277001-19-2024 History and physical note* Desmond Tirado PA-C - 03/05/2023 2:49 PM EST [facility] Critical Care Medicine Date: 03/05/2023 Patient: Abbey [...] the morning. Take before meals. Pt to lemon picker prescription ondansetron ODT (Zofran-ODT) 4 mg disintegrating [...] Grandmother Diabetes Paternal Grandmother Grandmother Asthma Brother [facility] Medications: Current Facility-Administered Medications: acetaminophen (Tylenol) [...] 4mg, intravenous, q8h PRN, Jason P Desmond, COAL CUTTER-MINI SHIFTER oxyCODONE-acetaminophen (Percocet) 5-325 mg per tablet 1 [...] ICU skin protocol Ethics/Code Status: Full code Transplant Registered Nurse: DVT Prophylaxis: none GI Prophylaxis: pepcid Bowel Regimen: miralax Diet: NPO CVC: none [place]: yes - left radial Long: yes Restraints: no Dispo: ICU Critical Care Time: 60 minutes spent in preparing to see patient (I.e.labs,imaging, etc.), documentation, discussion plan of care with patient/family/caregiver, and/ or coordination of care with multidisciplinary team including the attending. Time does not include completion of procedure time. Desmond Tirado PA-C [facility] Work Phone: [phone] 790-981701-19-2024 History and physical note* Desmond Tirado PA-C - 03/05/2023 2:49 PM EST [facility] Critical Care Medicine Date: 03/05/2023 Patient: Abbey [...] the morning. Take before meals. 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 She was seen at [facility] by Dr. Kat and underwent an appendectomy [...] She had a CT angiogram recently at [facility] but this is not available for [...] This is with Dr. Ramos over the [facility]. Currently any oral intake will result [...] to review the CT angiogram done at [facility]. She is going to undergo a [...] with Dr. Deacon Kat. documented in this [facility] Work Phone: [phone] 265-879801-19-2024 Nurse Note* Ron Mancera RN - 03/05/2023 2:01 PM EST Patient in the unit from PACU, unable to transfer in EPIC. No admit order yet. PACU Rns saw the warning note when trying to transfer the patient without admit orders. PACU staff will reach out to vascular doctor and CAD APPLICATION SUPPORT SPECIALIST for the order. [facility] Work Phone: [phone] 422-287201-19-2024 Nurse Note* Ron Mancera RN - 03/05/2023 1:58 PM EST Informed JAVA WEB DEVELOPER to ask Dr. Magaña for admit orders prior to transfer. [facility] Work Phone: [phone] Note* Perioperative Nursing Note - Samantha Fields RN - 03/05/2023 1:52 PM EST Patient meets PACU discharge criteria. [facility]01-19-2024 Note* Perioperative Nursing Note - Samantha Fields RN - 03/05/2023 1:07 PM EST Patient to PACU bay 7 with left radial art line in place. Zeroed and waveforms appropriate. Clean/dry and intact. VSS. [facility] Work Phone: [phone] Note* Op Note - Sherry Magaña MD [...] Procedures Release Median Arcuate Ligament by LAPAROTOMY [id number] - [place] UNLISTED PX ABDOMEN MUSCULOSKELETAL SYSTEM Surgeons * Sherry Magaña - Primary Resident/Fellow/Other Stick Welder: Surgeon(s) and Role: Procedure Summary Anesthesia: General ASA: III Anesthesia Staff: Anesthesiologist: Serena George DO OUTSIDE EVENT SALES SPECIALIST: Maricruz Yip APRN-THOMAS Estimated Blood Loss: 2mL [...] EXAM Sherry Magaña MD 03/05/2023 1125 Staff: Offset Printing Operator: Mary Mccabe RN; Natalie Young RN Scrub Person: Nadia Escobedo; Thu Ford Drains and/or Catheters: NG/OG/Feeding Tube NG - [place] sump 16 Fr Right nostril (Active) Tube [...] MEMBRANE, JASON, 5 X 6 IN - [id number] Implanted Findings: heavily inflammed ligamentous tissues and [...] scrubbed for the entire procedure. 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 She was seen at [facility] by Dr. Kat and underwent an appendectomy [...] She had a CT angiogram recently at [facility] but this is not available for [...] This is with Dr. Ramos over the [facility]. Currently any oral intake will result [...] to review the CT angiogram done at [facility]. She is going to undergo a [...] UGIS. Will discuss with Dr. Deacon Kat. [facility] Work Phone: [phone]) 221-357312-14-2023 NoteHNO ID: [id number] Author: Rylee Thacker APRN.MINI SHIFTER Service: ? Author Type: Nurse Practitioner Type: Progress Notes Filed: 01/28/2023 3:12 PM Note Text: [facility] Miscellaneous Notes* Telephone Encounter - Laura Rodas, DEE - 01/18/2023 9:20 AM EST [facility] received potassium orders for (K-2.9). No answer and left message for Thea pet handler from [facility] emergency department. (Do not feel Dr. Kat is managing TPN as well) * Telephone Encounter - Dorita Manning - 01/15/2023 11:47 AM EST [facility] called regarding potassium level. Level was 2.9. Patient already on max dose of potassium allowed with her TPN. They are asking for recommendations # [phone] documented [facility]Ad[facility]11-27-2023 Miscellaneous Notes* Telephone Encounter - Joaquín [...] if so ok to call her back [phone] Ok to leave a message documented in this encounterAdams [facility] Hospital11-27-2023 Miscellaneous Notes* Telephone Encounter - Fern Jonas LPN - 01/11/2023 10:49 AM EST Surg request placed, pt aware, instructions given verbally and via mychart, all questions and concerns addressed. documented in this encounterAdams [facility] Hospital11-27-2023 NoteHNO ID: [id number] Author: Fern Jonas LPN Service: ? Author Type: LICENSED NURSE Type: Progress Notes Filed: 01/11/2023 10:42 AM Note Text: Please verify and cosign 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 Vic Ramos MD January 08, 2023 documented in this encounterAdams [facility] Hospital11-22-2023 Miscellaneous Notes* Telephone Encounter - Clarence [...] to pain for visit. documented in this encounterAdams County Hospital11-16-2023 Hospital Discharge instructions Patient Education 12/31/2022 [...] oral rehydration solution (ORS). This is an wxkj-yzh-swyyomg medicine that helps return your body to [...] drinks, sports drinks, and soda. Eat bland, hauz-om-qgmabu foods in small amounts as you are able. These foods include bananas, applesauce, rice, lean meats, toast, and crackers. Avoid alcohol. Avoid spicy or fatty foods. Medicines Take vuri-bpe-rfhgrnd and prescription medicines only as told by your health care provider. If you were prescribed an antibiotic medicine, take it as told by your health care provider. Do notstop using the antibiotic even if you start to feel better. General instructions Wash your hands often using soap and water. If soap and water are not available, use a hand insurance salesperson. Others in the household should wash their [...] soap and water are not available, usehand insurance salesperson. Contact a health care provider if your diarrhea gets worse or you have new symptoms. Get help right away if you have signs of dehydration. This information is not intended to replace advice given to you by your health care provider. Make sure you discuss any questions you have with your health care provider. Document Revised: 08/13/2021 Document Reviewed: 08/13/2021 [employer] Patient Education 2022 [employer]. 12/31/2022 16:02:59 Abdominal Pain, Adult Abdominal Pain, [...] Follow these instructions at home: Medicines Take puky-ikr-yoaogho and prescription medicines only as told by [...] Watch your condition for any changes. Take uwcc-scv-ctgzqsf and prescription medicines only as told by [...] provider. Document Revised: 03/22/2020 Document Reviewed: 06/12/2019 [employer] Patient Education 2022 [employer]. Follow Up Care 12/31/2022 12:31:54 With:Jaquan Morrow Address: [address] [place] [phone]- Business (1) When:01/03/2023 15:35:16 [facility]11-16-2023 Evaluation + Plan noteExtracted from: Title:ED [...] 10:00:00 AM Scheduled Provider:Nasim JOHNSON, Rajni Ballesteros Location:[facility] Appointment Type:URO Office Visit Future Scheduled Tests Radiology* US Renal 06/10/22 [facility]11-13-2023 Miscellaneous Notes* Telephone Encounter - Shanique Manning HUC - 12/28/2022 4:05 PM EST BMI Incoming Patient Nursing Line Call Summary: Situation/Concerns Melisa Potter's called [phone] called and said Abbey needs a RTWletter [...] Telephone Encounter. CHRIS Katz documented in this encounterAdams County Hospital10-30-2023 History of Present illness Narrative* Deacon [...] visit. Either the patient or their legal title insurance sales representative has been informed of the [...] opinion. Deacon Kat MD documented in this encounterAdams County Hospital10-30-2023 [facility]-20[facility]-2023 [facility]10-25-2023 [facility]10-24-2023 Note [facility]10-23-2023 [facility]10-[facility]-2023 [facility] 12-04-2022 History and physical note* Agustin Zamorano [...] was started since her last admission to [facility] last week. Patient's weight has been fluctuating [...] 12/16/2022 Time: 2:19 PM documented in this encounterAdams County Hospital10-19-2023 Miscellaneous Notes* Telephone Encounter - Oliva Dobbs RN - 12/03/2022 2:00 AM EDT BMI SPECIALTY CARE COORDINATION TELEPHONE ENCOUNTER Patient hospitalized 11/27 unsure if d/c. Referred to Dr Kat who referred to Dr Zamorano [facility] of hypothyroidism, HTN, gastric ulcer, GERD, [...] for MALS- plans for surgical intervention at [facility] Consult scheduled with Dr Zamorano on 12/04. Will r/s if pt still in house. 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 referral to GI specialist , on TPN documented in this encounterAdams County Hospital10-17-2023 Miscellaneous Notes* Telephone Encounter - Li Kimball RN - 12/01/2022 2:32 PM EDT Patient remains admitted at [facility]. Patient received a PICC line for home TPN to bridge her to surgery. Patient is scheduled with Dr. Zamorano for virtual consult 12/04/2022. Patient with increasednausea with TPN, [facility] continues to adjust medications. Li Kimball RN documented in this encounterAdams County Hospital10-14-2023 NoteHNO ID: [id number] Author: Note, Interface Service: ? Author Type: ? Type: Progress Notes Filed: 11/28/2022 5:10 AM Note Text: Epic Scheduled Downtime: 11/28/2022 1:00:00 AM to 11/28/2022 1:28:00 [facility] NoteHNO ID: [id number] Author: Note, Interface Service: ? Author Type: ? Type: Progress Notes Filed: 11/28/2022 3:45 AM Note Text: Epic Scheduled Downtime: 11/28/2022 1:00:00 AM to 11/28/2022 1:28:00 [facility] NoteHNO ID: [id number] Author: Note, Interface Service: ? Author Type: ? Type: Progress Notes Filed: 11/28/2022 3:27 AM Note Text: Epic Scheduled Downtime: 11/28/2022 1:00:00 AM to 11/28/2022 1:28:00 [facility]10-12-2023 NoteHNO ID: [id number] Author: Quyen Deshpande RN Service: ? Author Type: Registered Nurse Type: Progress Notes Filed: 11/26/2022 10:37 AM Note Text: Patient in office for hydration infusion. Patient tolerated infusion well. [id number] Miscellaneous Notes* Telephone Encounter - Kristin Hu RN - 11/25/2022 12:55 PM EDT Left message confirming pts appt tomorrow in the chronic care clinic for hydration. documented in this encounterAdams [facility] Hospital10-09-2023 Miscellaneous Notes* Telephone Encounter - Li Kimball RN - 11/23/2022 2:26 PM EDT Mesenteric ultrasound scheduled for 11/26/2022 at [facility], patient notified. Li Kimball RN * Telephone [...] pain. Li Kimball RN documented in this encounterAdams County Hospital10-08-2023 [facility] 11-22-2022 [facility] [id number] NoteWalden Behavioral CareAxlqjnze31-61-7907 NoteHNO ID: [id number] Author: Rajni Walsh RN Service: ? Author Type: Registered Nurse Type: Nursing Progress Note Filed: 11/18/2022 10:13 AM Note Text: Other: C/o ultram not working.Will see about another order.Urine was sent to lab.Will reassess.[facility] [id number] NoteWalden Behavioral [id number] Miscellaneous Notes* Telephone Encounter - Li Kimball RN - 11/16/2022 11:51 AM EDT Patient called and states she continues to have abdominal pain and is asking for a Tramadol prescription. Patient also asking for IV fluids as her fluid intake is still not normal. Li Kimball RN documented in this encounterAdams County Hospital09-29-2023 NoteHNO ID: [id number] Author: Pablo Lebron PSYD Service: ? Author Type: Psychologist Type: Progress Notes Filed: 11/13/2022 8:36 AM Note Text: Assessment was conducted over the phone due to pt's technical difficulties. Patient is a resident of [place], and completed the assessment over the phone in [place]. Psychologist is licensed and stationed in [place]. Informed consent was discussed and verbal assent [...] Focused Psychotherapy, Supportive Therapy PROGRESS TO DATE: Group Home Progress: Stable Short Term Condition: Stable GOALS/OBJECTIVES/INTERVENTIONS: To identify and implement tools for effectively managing symptoms of anxiety, stress, and low mood. Approximately 40 minutes were spent with the patient doing therapy. Pablo Lebron PsyDBeth [facility]acon[facility]09-28-2023 NoteWalden Behavioral [id number] NoteMichael [place] [address]-27-2023 [place] [address]-27-2023 History of Past illness Narrative* Problem Noted [...] of this encounter (statuses as of 11/17/2022) [facility] History of Past illness Narrative* Problem [...] of this encounter (statuses as of 11/18/2022) [place] [address]-27-2023 History of Past illness Narrative* Problem Noted [...] of this encounter (statuses as of 11/21/2022) [facility] of Past illness Narrative* Problem [...] of this encounter (statuses as of 11/24/2022) [facility] of Past illness Narrative* Problem [...] of this encounter (statuses as of 11/25/2022) [facility] of Past illness Narrative* Problem [...] of this encounter (statuses as of 11/27/2022) [facility] of Past illness Narrative* Problem [...] of this encounter (statuses as of 12/02/2022) [facility] of Past illness Narrative* Problem [...] of this encounter (statuses as of 12/03/2022) [facility] of Past illness Narrative* Problem [...] of this encounter (statuses as of 12/15/2022) [facility] of Past illness Narrative* Problem [...] of this encounter (statuses as of 12/15/2022) [facility] of Past illness Narrative* Problem [...] of this encounter (statuses as of 12/17/2022) [facility] of Past illness Narrative* Problem [...] of this encounter (statuses as of 12/31/2022) [facility] of Past illness Narrative* Problem [...] of this encounter (statuses as of 01/06/2023) [facility] of Past illness Narrative* Problem [...] of this encounter (statuses as of 01/08/2023) [facility] of Past illness Narrative* Problem [...] of this encounter (statuses as of 01/11/2023) [facility] of Past illness Narrative* Problem [...] of this encounter (statuses as of 01/11/2023) [facility] [facility] of Past illness Narrative* Problem [...] of this encounter (statuses as of 01/12/2023) [facility] History of Past illness Narrative* Problem [...] of this encounter (statuses as of 01/18/2023) [facility] History of Past illness Narrative* Problem [...] of this encounter (statuses as of 01/18/2023) [facility] of Past illness Narrative* Problem [...] of this encounter (statuses as of 04/07/2023) [facility] Past illness Narrative* Problem [...] of this encounter (statuses as of 05/05/2023) [facility] Past [facility] Narrative* Problem [...] of this encounter (statuses as of 05/07/2023) [facility] of Past illness Narrative* Problem [...] of this encounter (statuses as of 05/10/2023) [facility] of Past illness Narrative* Problem [...] of this encounter (statuses as of 05/18/2023) [facility] of Past illness Narrative* Problem [...] of this encounter (statuses as of 05/27/2023) [facility] of Past illness Narrative* Problem [...] of this encounter (statuses as of 05/28/2023) [facility] of Past illness Narrative* Problem [...] of this encounter (statuses as of 05/28/2023) [facility] of Past illness Narrative* Problem [...] of this encounter (statuses as of 05/30/2023) [facility] History of Past illness Narrative* Problem [...] of this encounter (statuses as of 06/02/2023) [facility] Misc[facility] Notes* Telephone Encounter - Li Kimball RN - 11/09/2022 4:40 PM EDT Patient notified that surgery has to be moved to Wednesday as gastroenterology is no longer available to assist. I encouraged the patient to come to [place] ED if pain worsens or she develops an newor other concerning symptoms. Patient stated understanding and had no further questions. Li Kimball RN [facility] 11-06-2022 Miscellaneous Notes* Telephone Encounter - [...] within 10-15 minutes. Patient remains admitted to [facility] and is scheduled for a HIDA scan [...] questions. Li Kimball RN documented in [facility]Ad[facility]09[facility]23 [facility] 11-06-2022 [id number] History of Present illness Narrative* Agustin Sheets, [...] radiation safety can be found usingthis link: [email or web address] SIGNATURE: RT Oj(R) PATIENT NAME: Abbey Garcia DATE: November 06, 2022 TIME: 10:54 AM PAGER/CONTACT #: documented in this encounterAd[facility] History of Present illness Narrative* Deacon [...] healthy appearing mucosa. This was traversed. The ewyoj-ko-qpzeemr limb was characterized by healthy appearing mucosa. [...] YELLOW YELLOW APPEARANCE, URINE CLEAR CLEAR Specific [place], Urine 1.010 - 1.025 1.020 PH URINE [...] Moderate Deacon Kat MD documented in [facility] encounterAd[facility]09-20-2023 [facility]09-18-2023 Miscellaneous Notes* Telephone Encounter - Haroon [...] on Haroon Seay APRN.CNP documented in this encounterAd[facility]09-[facility] Emergency department Note * Dayanara Montana RN - 11/02/2022 11:55 AM EDT Pt states that her pain is getting worse along with her nausea [facility]09-18-2023 Emergency department Note* Dayanara Montana RN [...] CT scans showing possible kidney stones near [facility], here today because hands turned brown) JANINE Garcia is a 32 y.o. female who presents with abdominal pain. Patient has had multiple weeks of abdominal pain. She has had multiple ER visits in [facility]. She had multiple CT scans with [...] Walker MD 11/02/22 1325 documented in this encounterHol[facility] Note* Dayanara Montana RN - 11/02/2022 11:44 AM EDT Pt requesting to use the restroom and wants assistance. Stand by assist given pt walk with a slow steady gait at this time without difficulty [facility]09-18-2023 Physician Emergency department Note* Dimitri Walker MD - 11/02/2022 10:55 AM EDT DEPARTMENT OF EMERGENCY MEDICINE CHIEF COMPLAINT Abdominal Pain (Reports has been seen a couple of times with CT scans showing possible kidney stones near [facility], here today because hands turned brown) JANINE Garcia is a 32 y.o. female who presents with abdominal pain. Patient has had multiple weeks of abdominal pain. She has had multiple ER visits in [facility]. She had multiple CT scans with [...] bypass surgeon. Dimitri Walker MD 11/02/22 1325 [facility]09-16-2023 Hospital Discharge instructions* Discharge Instructions* Jalyn [...] sent through Care Everywhere. * Back: Strain (Namibian) [facility] 10-26-2022 [id number] History of Past illness Narrative* Problem Noted [...] of this encounter (statuses as of 10/28/2022) [facility]09-10-[facility] History of Past illness Narrative* Problem [...] of this encounter (statuses as of 11/03/2022) [facility]09-10[facility] History of Past illness Narrative* Problem [...] of this encounter (statuses as of 11/03/2022) [facility] History of Past illness Narrative* Problem [...] of this encounter (statuses as of 11/03/2022) [facility] History of Past illness Narrative* Problem [...] of this encounter (statuses as of 11/03/2022) [facility] History of Past illness Narrative* Problem [...] of this encounter (statuses as of 11/04/2022) [facility] History of Past illness Narrative* Problem [...] of this encounter (statuses as of 11/04/2022) [facility] History of Past illness Narrative* Problem [...] of this encounter (statuses as of 11/05/2022) [facility] History of Past illness Narrative* Problem [...] of this encounter (statuses as of 11/05/2022) [facility] History of Past illness Narrative* Problem [...] of this encounter (statuses as of 11/06/2022) [facility] History of Past illness Narrative* Problem [...] of this encounter (statuses as of 11/06/2022) [facility]09-10[facility] History of Past illness Narrative* Problem [...] of this encounter (statuses as of 11/10/2022) [facility]09-10-2023 [id number] Miscellaneous Notes* Telephone Encounter - Li Kimball [...] nausea vomiting and pain return call to [phone] documented in this encounterAdams [facility]09-[facility]-2023 Hospital Discharge instructions Patient Education 10/20/2022 [...] medicines. These include steroids, antibiotics, and some ufgr-cjy-vgoytem medicines, such as aspirin or ibuprofen. Having [...] Follow these instructions at home: Medicines Take uhod-wxe-cwjybdq and prescription medicines only as told by [...] provider. Document Revised: 06/07/2021 Document Reviewed: 06/07/2021 [employer] Patient Education 2022 [employer]. 10/20/2022 12:40:07 Abdominal Pain, Adult Abdominal Pain, [...] Follow these instructions at home: Medicines Take prht-rrq-mylcobd and prescription medicines only as told by [...] Watch your condition for any changes. Take sqjy-isx-xstvaff and prescription medicines only as told by [...] provider. Document Revised: 03/22/2020 Document Reviewed: 06/12/2019 [employer] Patient Education 2022 [employer]. Follow Up Care 10/20/2022 08:06:19 With:Jaquan Morrow Address: [address] [place], [place] [phone]- Business (1) When:10/23/2022 12:06:27 [facility]09-04-2023 Evaluation + Plan noteExtracted from: Title:ED Note Author:Earnest Jett DO Date:10/19 Abdominal pain (R10.9: Unspe cified abdominal pain) Ordered: acetaminophen-oxycodone, 1 tab(s), Oral, q6hr for 3 day(s), 10 tab(s), Refill(s) 0, [id number], 168, cm, 10/19/22 8:44:00 EDT, Height/Length Dosing, [...] nausea, # 10 tab(s), Refills(s) 0, Pharmacy: [facility] #[id number], 168, cm, 10/19/22 8:44:00 EDT, Height/Length [...] QID, # 280 mL, Refills(s) 0, Pharmacy: [facility]/pharm[facility] #[id number], 168, cm, 10/19/22 8:44:00 EDT, Height/Length Dosing, 85.6, kg, 10/19/22 8:44:00 EDT, Weight Dosing Automated Diff Basic Metabolic Panel CBC w/ Auto Diff eGFR Extra Blue Tube Extra SST Tube Hepatic Function Panel Lipase Level TSH With T4fr Reflex UA With Cult Reflex XR Chest 2 Views Future Appointments Appointment Date:11/20/2022 02:40:00 PM Scheduled Provider: Location:[facility] Appointment Type:FM Lab Draw Appointment Date:01/20/2023 10:00:00 AM Scheduled Provider:Nasim JOHNSON, Rajni Ballesteros Location:[facility] Appointment Type:URO Office Visit Future Scheduled Tests Laboratory* T3 Free 10/07/22 * Thyroid Stimulating Hormone 10/07/22 * Free T4 10/07/22 Radiology* US Renal 06/10/22 [facility]09-04-2023 Hospital Discharge instructions Follow Up Care 10/19/2022 08:31:02 With:Jon Kishanmicaela Address: [address], [address] [phone] Business (1) When:10/22/2022 13:40:06 With:Your GI physician Address:Unknown When:10/22/2022 13:40:01 With:Jaquan Morrow Address: [address] [place], [place] [phone]- Business (1) When:Within 3 Day(s) [facility]08-31-2023 Miscellaneous Notes* Telephone Encounter - Ria [...] and advise. Grecia Wallace documented in this encounterAdams [facility] Hospital08-21-2023 NoteHNO ID: [id number] Author: Pablo Lebron PSYD Service: ? Author Type: Psychologist Type: Progress Notes Filed: 10/05/2022 3:51 PM Note Text: Assessment was conducted over the phone due to pt's technical difficulties. Patient is a resident of [place], and completed the assessment over the phone in [place]. Psychologist is licensed and stationed in [place]. 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 Approximately 45 minutes were spent with the patient doing therapy. Pablo Jose Bernardino, [facility]08-21-2023 History of Present illness Narrative* Pablo Lebron, CECILIA - 10/05/2022 3:07 PM EDT Assessment was conducted over the phone due to pt's technical difficulties. Patient is a resident of [place], and completed the assessment over the phone in [place]. Psychologist is licensed and stationed in [place]. 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 Approximately 45 minutes were spent with the patient doing therapy. Pablo Lebron PsyD documented in this encounterAdams [facility] Hospital08-14-2023 Instructions* Patient Instructions* Xiomara Martinez RD [...] Fusion multivitamin soft chews and calcium citrate 3849-5855 mg/day(3 soft chews), and continue Probiotic drink [...] should last 30 minutes. 7. Aim for 1614-3240 calories and 75-100 gm carbs per day Nutrition Monitoring & Evaluation: Maintain BMI < 30 Need for Follow up: 4 months, for conversion anniversary - [phone] documented in this encounterAdams [facility] Hospital08-14-2023 History of Present illness Narrative* Xiomara Martinez RD - 09/28/2022 8:00 AM EDT [facility] Nutrition Therapy: Virtual Consult - Re-assessment I have communicated my name and active licensure. The patient s identity and physical location wereverified at the time of this visit. Either the patient or their legal title insurance sales representative has been informed of the [...] Fusion multivitamin soft chews and calcium citrate 4980-9909 mg/day(3 soft chews), and continue Probiotic drink [...] should last 30 minutes. 7. Aim for 8465-5272 calories and 75-100 gm carbs per day Nutrition Monitoring & Evaluation: Maintain BMI < 30 Need for Follow up: 4 months, for conversion anniversary - [phone] PROGRESS: Interval History: Patient presents for follow [...] the day. Recently started tracking intake on [employer] bre. Consistent, but likely insufficient protein intake. Following Phase 5 diet currently. 0323-5733 calories/day - meeting low-end needs 60-70 gm protein intake/day - falling below recommendations 60-90 oz fluid intake/day - meeting needs Taking all vitamin/minerals, however insufficient calcium citrate. Labs reviewed, unremarkable. Resting Metabolic Rate:1557 Energy needs for weight loss 2556-1849 (15-20 carina/kg current weight) Protein needs: 85 [...] Fusion One a Day multivitamin capsule PLUS 9465-2270 mg calcium citrate 5. Exercise: strive for [...] Garcia DATE: 09/28/2022 TIME: 7:48 AM PAGER: [phone] documented in this encounterAdams County Hospital08-14-2023 [facility]08-07-2023 NoteHNO ID: [id number] Author: Pablo Lebron PSYD Service: ? Author Type: Psychologist Type: Progress Notes Filed: 09/22/2022 12:47 PM Note Text: Assessment was conducted over the phone due to pt's technical difficulties. Patient is a resident of [place], and completed the assessment over the phone in [place]. Psychologist is licensed and stationed in [place]. Informed consent was discussed and verbal assent [...] importance of working outside house; balance). 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 Animosity from and mom (not enough time at home). Hurt by mom's words wants to communicate, she internalizes. Marital therapy? Appreciative of family help with kids. Sources of support (brother and suvdjf-ks-xhu), close friend High anxiety and panic attacks [...] Focused Psychotherapy, Supportive Therapy PROGRESS TO DATE: Group Home Progress: Stable Short Term Condition: Stable GOALS/OBJECTIVES/INTERVENTIONS: To identify and implement tools for effectively managing symptoms of anxiety, stress, and low mood. Approximately 45 minutes were spent with the patient doing therapy. Pablo Lebron [place] [address]-07-2023 History of Present illness Narrative* Pablo Lebron Jose, [facility] - 09/21/2022 2:04 PM EDT Assessment was conducted over the phone due to pt's technical difficulties. Patient is a resident of [place], and completed the assessment over the phone in [place]. Psychologist is licensed and stationed in [place]. Informed consent was discussed and verbal assent [...] importance of working outside house; balance). 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 Animosity from and mom (not enough time at home). Hurt by mom's words wants to communicate, she internalizes. Marital therapy? Appreciative of family help with kids. Sources of support (brother and cctbbp-wd-ocd), close friend High anxiety and panic attacks [...] Focused Psychotherapy, Supportive Therapy PROGRESS TO DATE: Group Home Progress: Stable Short Term Condition: Stable GOALS/OBJECTIVES/INTERVENTIONS: To identify and implement tools for effectively managing symptoms of anxiety, stress, and low mood. Approximately 45 minutes were spent with the patient doing therapy. Pablo Lebron PsyD documented in this encounterAdams [facility] Hospital08-04-2023 [facility]Main [facility]08-04-2023 History of Present illness Narrative* Breanna Stern APRN.MINI SHIFTER - 09/18/2022 3:14 PM EDT BMI SURGERY [...] Total weight loss: 11.3 kg (25 lb) Harrison weight: 70.3 kg (154 lb 14.5 oz) Excess weight: 24.5 kg (54 lb 1.5 oz) % of excess body weight lost: 11.3 kg (25 lb) (46.22% of excess weight loss) COMPLICATIONS SINCE LAST VISIT?: NONE EGD 06/23/22 Findings: The examined esophagus was normal. 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 The gastrojejunal anastomosis was characterized by healthy appearing mucosa. This was traversed. The vtmiy-eu-fdtkatb limb was characterized by healthy appearing mucosa. [...] 40 f bougie). This was traversed. The duuhb-qi-uvyyqzb limb was characterized by healthy appearing mucosa. [...] Level: 4 - Moderate documented in this encounterAdams County Hospital08-04-2023 Nurse Note* Jayla Meza MA - [...] Temperature: No Drains: No documented in this encounterAdams [facility] Hospital06-22-2023 Miscellaneous Notes* Telephone Encounter - Linda [...] the dosing. Thanks, Linda documented in this encounterAdams County Hospital06-14-2023 Hospital Discharge instructions Follow Up Care 07/29/2022 09:18:39 With:Nasim JOHNSON, Rajni Ballesteros, URL, [facility] Address: [address], [place] [address] [phone] When: Unknown [facility] 06-14-2023 Hospital Discharge instructions Patient Education 07/29/2022 [...] include: ?8 oz (237 mL) of milk, gtopgza-ggyaseimwrmq-sycde milk, and calcium- fortifiedfruit juice. Calcium-fortified means [...] ?Spinach (cooked), rhubarb, beets, sweet potatoes, and Nigerien chard. ?Peanuts. ?Potato chips, lithuanian fries, and baked potatoes with skin on. ?Nuts and nut products. ?Chocolate. If you regularly take a diuretic medicine, make sure to eat at least 1 or 2 servings of fruits or vegetables that are high in potassium each day. These include: ?Avocado. ?Banana. ?[place], prune, carrot, or tomato juice. ?Baked potato. [...] magnesium, fish oil, or vitamin B6. Take sqkm-eda-daewcao and prescription medicines only as told by [...] Casseroles. Pizza. Lasagna. Frozen meals. Potato chips. Icelandic fries. The items listed above may not [...] provider. Document Revised: 10/13/2021 Document Reviewed: 10/13/2021 [employer] Patient Education 2022 [employer] Follow Up Care 06/30/2022 09:39:02 With:Nasim JOHNSON, YUMIKO Lamar, [facility] Address: When: Unknown [facility] 06-13-2023 Instructions* Patient Instructions* Samara Evans MD [...] blistering or peeling skin. documented in this encounterAdams County Hospital06-13-2023 History of Present illness Narrative* Samara [...] Past Histories independently gathered by the clinical media production support manager, and the remaining scribed note [...] visit. Samara Evans MD documented in this encounterAdams County Hospital06-08-2023 Miscellaneous Notes* Telephone Encounter - Linda [...] denying [employer] authorization Full letter scanned in [employer] for review Grecia Wallace * Telephone Encounter [...] 07/23/2022 8:49 AM EDT Fax received from [facility] to notify [employer] not covered, will need PA or prescribe alternative: Linzess, Trulance or Amitza Fax scanned in [employer] Grecia Wallace documented in this encounterAdams County Hospital06-07-2023 History of Present illness Narrative* Donnie [...] with cornea provider or optom- closer to [place] - Will sendmesislamorada Return precautions were discussed in detail Plan reviewed with the patient who verbalizes understanding Donnie David MD Ophthalmology Resident documented in this encounterAdams County Hospital06-07-2023 History of Present illness Narrative* Kasie [...] lesion. Mild degenerative changes. Lower thorax: Unremarkable. Slice Cutting Machine Operator Helper (topogram) images: No additional findings. CT ABD/PEL [...] Tissues: No acute abnormality. Lower thorax: Unremarkable. Slice Cutting Machine Operator Helper (topogram) images: No additional findings. US ABD [...] healthy appearing mucosa. This was traversed. The kzdkv-ow-cfjxevf limb was characterized by healthy appearing mucosa. [...] 40 f bougie). This was traversed. The yyfti-rf-rzbwiqr limb was characterized by healthy appearing mucosa. [...] ceroid-laden histiocytes. There is no interface activity. [place] bile duct branches are identified in nearly [...] GJ anastomosis in Feb [address] aKt for nausea and vomiting right after eating. [...] MD July 22, 2022 documented in this encounterAdams County Hospital05-06-2023 History of Past illness Narrative* Problem Noted Date Resolved Date Intractable nausea and vomiting 06/20/2022 06/23/2022 Acute abdominal pain 12/21/2020 06/23/2022 Obesity 09/03/2020 11/29/2020 Abdominal pain 02/01/2020 04/08/2020 Moderate episode of recurrent major depressive d isorder 11/21/2019 01/03/2020 Obesity, Class II, BMI 35-39.9 10/13/2019 1 Last Assessment & Plan: Assessment: BMI 38.74 documented as of this encounter (statuses as of 07/22/2022) [facility] of Past illness Narrative* Problem Noted Date Resolved Date Intractable nausea and vomiting 06/20/2022 06/23/2022 Acute abdominal pain 12/21/2020 06/23/2022 Obesity 09/03/2020 11/29/2020 Abdominal pain 02/01/2020 04/08/2020 Moderate episode of recurrent major depressive d isorder 11/21/2019 01/03/2020 Obesity, Class II, BMI 35-39.9 10/13/2019 1 Last Assessment & Plan: Assessment: BMI 38.74 documented as of this encounter (statuses as of 07/22/2022) [facility] of Past illness Narrative* Problem Noted Date Resolved Date Intractable nausea and vomiting 06/20/2022 06/23/2022 Acute abdominal pain 12/21/2020 06/23/2022 Obesity 09/03/2020 11/29/2020 Abdominal pain 02/01/2020 04/08/2020 Moderate episode of recurrent major depressive d isorder 11/21/2019 01/03/2020 Obesity, Class II, BMI 35-39.9 10/13/2019 1 Last Assessment & Plan: Assessment: BMI 38.74 documented as of this encounter (statuses as of 07/23/2022) [facility] of Past illness Narrative* Problem Noted Date Resolved Date Intractable nausea and vomiting 06/20/2022 06/23/2022 Acute abdominal pain 12/21/2020 06/23/2022 Obesity 09/03/2020 11/29/2020 Abdominal pain 02/01/2020 04/08/2020 Moderate episode of recurrent major depressive d isorder 11/21/2019 01/03/2020 Obesity, Class II, BMI 35-39.9 10/13/2019 1 Last Assessment & Plan: Assessment: BMI 38.74 documented as of this encounter (statuses as of 07/23/2022) [facility] of [facility] Narrative* Problem Noted Date Resolved Date Intractable nausea and vomiting 06/20/2022 06/23/2022 Acute abdominal pain 12/21/2020 06/23/2022 Obesity 09/03/2020 11/29/2020 Abdominal pain 02/01/2020 04/08/2020 Moderate episode of recurrent major depressive d isorder 11/21/2019 01/03/2020 Obesity, Class II, BMI 35-39.9 10/13/2019 1 Last Assessment & Plan: Assessment: BMI 38.74 documented as of this encounter (statuses as of 08/03/2022) [facility] of Past [facility] Narrative* Problem Noted Date Resolved Date Intractable nausea and vomiting 06/20/2022 06/23/2022 Acute abdominal pain 12/21/2020 06/23/2022 Obesity 09/03/2020 11/29/2020 Abdominal pain 02/01/2020 04/08/2020 Moderate episode of recurrent major depressive d isorder 11/21/2019 01/03/2020 Obesity, Class II, BMI 35-39.9 10/13/2019 1 Last Assessment & Plan: Assessment: BMI 38.74 documented as of this encounter (statuses as of 08/06/2022) [facility] Narrative* Problem [...] of this encounter (statuses as of 09/19/2022) [facility] Narrative* Problem [...] of this encounter (statuses as of 09/22/2022) [facility] Narrative* Problem [...] of this encounter (statuses as of 09/28/2022) [facility] Narrative* Problem [...] of this encounter (statuses as of 10/06/2022) [facility]05[facility]06[facility] History of Past illness Narrative* Problem [...] of this encounter (statuses as of 10/15/2022) [facility] History of Past illness Narrative* Problem [...] of this encounter (statuses as of 10/21/2022) [facility] History of Past illness Narrative* Problem [...] of this encounter (statuses as of 12/21/2022) [facility]05-04-2023 History of Present illness Narrative* Aliyah [...] advised she may send a message on Appland if she has any additional questions. Aliyah Washburn PA-C Orthopaedic & Rheumatologic [facility] Date: June 18, 2022 Time: [...] No Swollen Glands: No documented in this encounterAdams [facility] Hospital04-28-[facility]23 History of Present illness Narrative* Aliyah Washburn PA-C - 06/12/2022 10:26 AM EDT Images from the original note were not included. Rheumatology Outpatient Clinic Date of Service: 06/12/2022 Patient: Abbey Garcia Medical Record: [id number] Primary Care Physician: Wally Foley MD Last Rheumatology visit: None at [facility] Referring Provider: HENNY Marcus [address] [facility] [address] [place] [address] Consultation requested by Agustin Valentino for an [...] hypothyroidism. Reports she has not seen her tenter recently. 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 She has not seen tenter. Would like to rule out endocrine causes [...] which included preparing to see the patient, ctnv-xe-rgtu patient care, completing clinical documentation, obtaining and/or reviewing separately obtained history, performing a medically appropriate examination, counseling and educating the pat ient/family/caregiver, and ordering medications, tests, or procedures. Aliyah Washburn PA-C Orthopaedic & Rheumatologic [facility] Date: June 12, 2022 Time: 10:26 AM documented in this encounterAdams [facility] Hospital04-26-[facility]23 Hospital Discharge instructions Patient Education 06/10/2022 [...] you until you feel stable. Medicines Take xvxz-eeh-pjzudvs and prescription medicines only as told by [...] provider. Document Revised: 06/12/2021 Document Reviewed: 06/12/2021 [employer] Patient Education 2022 [employer]. 06/10/2022 17:05:57 Nonspecific Chest Pain, Adult Nonspecific [...] Follow these instructions at home: Medicines Take ddco-ypk-lwfbcde and prescription medicines only as told by [...] provider. Document Revised: 04/17/2021 Document Reviewed: 04/17/2021 [employer] Patient Education 2022 [employer]. Follow Up Care 06/10/2022 12:31:10 With:Chetna Jack Address: [address] [place] [phone] Business (1) When:06/13/2022 17:03:30 Comments:Schedule event loop recorder as well as echocardiogram with central scheduling and then follow-up with rubber flap tuber machine operator Dr. Jack With:Jaquan Morrow Address: [address] [place], [place] [id number]- Business (1) When:06/13/2022 17:03:46 Comments:Call the office [...] you develop any new or worsening symptoms. [facility]01-20-2023 Nurse Note* Eli Carter RN - [...] None REFERRAL (RECOMMENDATION): None documented in this encounterAdams [facility]01-19-[facility]23 Miscellaneous Notes* Telephone Encounter - Victor M Dennis - 03/05/2022 11:54 AM EST Spoke with the patient confirmed 1:45 arrival time for 2:45 appointment at [facility]. Victor M Dennis * Telephone Encounter - Li Kimball RN - 03/05/2022 10:31 AM EST I called patient and left a message with EGD appointment instructions and location. Call back number provided. Li Kimball RN documented in this encounterAdams County Hospital01-19-2023 Instructions* Patient Instructions* Breanna Stern APRN.CNP - 03/05/2022 10:18 AM EST I have asked scheduling to add you on for an appointment in 2 months for your regular follow up, we'll check your labs at that time. (I've ordered them, no need to fast) We may need to see you sooner based on results of your EGD documented in this encounterAdams County Hospital01-19-2023 History of Present illness Narrative* Breanna [...] Total weight loss: 19.1 kg (42 lb) Harrison weight: 70.3 kg (154 lb 14.5 oz) [...] Orders Breanna Stern APRN.BETH documented in this encounterAdams County Hospital12-30-2022 History of Present illness Narrative* Kuldip [...] taking tylenol for her pain. PHYSICAL EXAM: [facility] 08/19/2020 General: Appears stated age, well built, [...] today). She saw a provider in the [place] area who recommended her have an osteotomy. 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 We discussed the option of seeing Dr. Gutierres for a second opinion as patient is eager to see someone through the [facility] system. We will help her set [...] Past Histories independently gathered by the clinical media production support manager and the remaining scribed note accurately describes my personal service to the patient. Kuldip Yousif MD documented in this encounterAdams County Hospital12-22-2022 Miscellaneous Notes* Telephone Encounter - Li [...] nausea. Li Kimball RN documented in this encounterAdams County Hospital12-21-2022 History of Present illness Narrative* Nahed Arzate Dashawn, RD - 02/04/2022 9:24 AM EST [facility] Nutrition Therapy: Virtual Consult - Re-assessment [...] Fusion One a Day multivitamin capsule PLUS 4043-9529 mg calcium citrate daily) 4. Protein goal: 75-93 grams protein/day. 5. Fluid goal: 64oz per day water. (no calories, no caffeine, no carbonation, no alcohol) 6. Call the BMI department at [phone] to schedule your one month post op nutrition visit for February. Link to book as discussed: [email or web address].org/-/scassets/files/org/bariatric/guides/bmiguideboo k-[email or web address].ashx?la=en Nutrition Monitoring & Evaluation: Adherence [...] Fusion One a Day multivitamin capsule PLUS 1130-0653 mg calcium citrate 5. Exercise: strive for [...] Garcia DATE: 02/04/2022 TIME: 9:24 AM PAGER: [phone] documented in this encounterAdams County Hospital12-20-2022 Instructions* Patient Instructions* Breanna Stern APRN.MINI SHIFTER - 02/03/2022 3:42 PM EST Start Omeprazole [...] your activity as tolerated. documented in this encounterAdams County Hospital12-20-2022 History of Present illness Narrative* Breanna [...] Total weight loss: 15.4 kg (34 lb) Harrison weight: 70.3 kg (154 lb 14.5 oz) [...] visit. Breanna Stern APRN.BETH documented in this encounterAdams County Hospital12-20-2022 Nurse Note* Lucia Ramirez MA - 02/03/2022 2:53 PM EST What is the reason for your visit today? Follow up Who is your referring physician? Are you having poor oral intake? A little Have you had unintentional weight loss of 15 lbs/7 Kg in the last 3-6 months? NO Bowels: regular Wound: Temperature: No Drains: No documented in this encounterAdams County Hospital12-20-2022 Miscellaneous Notes* Telephone Encounter - Li [...] 02/03/2022. Li Kimball RN documented in this encounterAdams County Hospital12-19-2022 Miscellaneous Notes* Telephone Encounter - Li Kimball RN - 02/02/2022 2:39 PM EST See 02/02/2022 MyChart encounter Li Kimball RN * Telephone Encounter - Olga Paul - 02/02/2022 8:46 AM EST Patient called in and will like a refill on pain medication. Patients pharmacy is the [facility] in [place]. Contact# [phone] documented in this encounterAdams County Hospital12-14-2022 History and physical note * Ioana [...] Bilateral arthroscopic knee surgery- was catcher in [employer] PAST SURGICAL HISTORY OF 08/2020 gastric sleeve [...] fevers. Neuro: No history of TIA's, stroke, MANAGER TRUST tumor, impaired sensorium, hemiplegia, paraplegia or quadraplegia. No neurological symptoms or problems. Respiratory: +RICHAR, asthma Negative for COPD, Current cough, Dyspnea, Home O2, Pneumonia within 6 weeks (date), Wheezing Cardiovascular: +hx HTN during /post , resolved. Negative for Recent ME, Angina, CAD, Chest Pain, CHF, DVT/PE GI: [...] 2022 TIME: 11:05 AM documented in this encounterAdams County Hospital12-08-2022 Instructions* Patient Instructions* Ioana Hogan PA-C - 01/22/2022 11:55 AM EST PATIENT PREOPERATIVE INSTRUCTIONS Deacon Kat MD has scheduled you for your procedure at this surgery center: [facility]: [phone] --[id number] [address]. Please check in on the1st floor at [...] Procedures: - YOU MUST HAVE A RESPONSIBLE MANAGER STORE TAKE YOU HOME. A ESCORT CAR DRIVER OR SECURITY SYSTEM SALES CONSULTANT CANNOT BE MADE A RESPONSIBLE MANAGER STORE. - We recommend that a responsible person stays with you overnight to take care of you. - You cannot stay in a hotel alone after outpatient surgery. You will not be permitted to have yoursurgery, if you do not have someone to take care of you. If you already have an Advance Directive, please fax a copy to [phone] or email to for it to be [...] day. Ioana Hogan PA-C documented in this encounterAdams County Hospital12-06-2022 Miscellaneous Notes* Telephone Encounter - Li [...] to 01/29/2022. Call back number provided. Li Kimblal RN documented in this encounterAdams County Hospital11-22-2022 Miscellaneous Notes* Telephone Encounter - Li [...] questions. Li Kimball RN documented in this encounterAdams County Hospital11-18-2022 Instructions* Patient Instructions* Sabina Joy APRN.BETH - 01/02/2022 11:29 AM EST Images from the original note were not included. Mutually Agreed Upon Goals Eating Plan: [employer] BRE - Log intake 2 days [...] BRE for meditation - Mindful Moments by [facility]. [place]. Insight Timer https://www.ServiceFrame/health/mental-health/lqb-dbiieshqso-vfukvg-android-ap ps#our-picks How can I fix my acid [...] but are usually stronger and faster than X7lhasiuns. Dietary habits for acid reflux Reduce or [...] Try Breakfast: 1 scrambled egg (75 calories) Namibian muffin (67 calories) Calories per meal: 142 AM Snack & Fluids: *Spread out and sipped between meals 2 cups water (0 calories) 1 cup skim milk or unsweetened soy milk (90 calories) Calories per meal: 90 Lunch: 4 oz canned tuna in water (100 calories) 2 Tbsp fat free ortiz (20 calories) 1 slice low fat Nigerien cheese (50 calories) 1 slice whole grain [...] after gastric sleeve surgery? (Full meal plan) (How do you roll?) .kml documented in this encounterAdams County Hospital11-18-2022 History of Present illness Narrative* Sabina [...] weight loss: 35 lbs or 14.58 % Harrison weight: 70.3 kg (154 lb 14.5 oz) [...] which included preparing to see the patient, dbph-dh-ehte patient care, completing clinical documentation, obtaining and/or reviewing separately obtained history, performing a medically appropriate examination, counseling and educating the pat ient/family/caregiver, independently interpreting results (not separately reported), and communicating results to the patient/family/caregiver. Follow up in 6 months. This visit was performed virtually due to the COVID-19 epidemic as an effort to protect patients and minimize exposure. documented in this encounterAdams County Hospital11-17-2022 History of Present illness Narrative* Marisabel Lynn LPN - 01/01/2022 2:41 PM EST 2Name: Abbey Garcia [facility]#: [id number] Date: 01/01/2022 HUERTA 48 HR PH FOLLOW-UP The HUERTA monitor was received today via [employer] transport.. Test data from the down filler was downloaded. Events from the patient diary were inserted into the study for physician review. .Marisabel Lynn LPN documented in this encounterAdams County Hospital11-10-2022 History of Present illness Narrative* Marisabel Lynn LPN - 12/25/2021 11:28 AM EST Name: Abbey Garcia [facility]#: [id number] Date: 12/25/2021 48hr HUERTA PH CAPSULE PLACEMENT [...] hours. .Marisabel Lynn LPN documented in this encounterAdams County Hospital11-10-2022 Nurse Note* Raegan Sood RN - [...] RN In Department: GASTROENTEROLOGY documented in this encounterAdams County Hospital11-10-2022 History of Present illness Narrative* Mateusz Kraft, Research Coordinator - 12/25/2021 9:45 AM ESTSummary: 14-822 Study Title: CASE [id number] Genetic and Environmental [...] provided to the consenting constitution party. Mateusz Kraft, Research Coordinator documented in this encounterAdams County Hospital10-05-2022 Miscellaneous Notes* Telephone Encounter - Li Kimball RN - 11/19/2021 10:57 AM EDT I called the patient and left a message for the patient to call [phone], option 0 to schedule the pH Impedence testing. Call back number provided for additional questions or concerns. Li Kimball RN documented in this encounterAdams County Hospital10-03-2022 History of Present illness Narrative* Deacon aKt MD - 11/17/2021 3:40 PM EDT This [...] mcg, Iron 45-60 mg and calcium citrate 2690-2082 mg/day PHYSICAL EXAMINATION General appearance: Well appearing, [...] the date of the service which included argz-kx-qkno patient care, completing clinical documentation, obtaining and/or reviewing separately obtained history, counseling and educating the patient/family/caregiver, and ordering medications, tests, or procedures. Deacon Kat MD documented in this encounterAdams County Hospital10-03-2022 Miscellaneous Notes* Telephone Encounter - Grecia Wallace - 11/17/2021 11:21 AM EDT Pharmacy fax requesting refills as follows: Patient scheduled for follow up visit Dec 24 Requested Prescriptions Pending Prescriptions Disp Refills famotidine (PEPCID) 40 mg tablet 90 tablet 1 Sig: Take 1 tablet by mouth once daily. Please review and advise. Grecia Wallace documented in this encounterAdams County Hospital09-06-2022 Miscellaneous Notes* Telephone Encounter - Cornel [...] book slots. Cornel Conrad documented in this encounterAdams County Hospital09-06-2022 Miscellaneous Notes* Telephone Encounter - Slime Crews - 10/21/2021 8:25 AM EDT Called patient to reschedule 10/[address] Yousif will be out of the office in the afternoon that day. Per Dr. Yousif, patient can be rescheduled at [facility] on 10/21 between 4:15-5:30 PM or on 10/22 in [place] between 4-6 PM. Do not double book slots. documented in this encounterAdams County Hospital08-25-2022 Instructions* Patient Instructions* Sabina Joy APRN.BETH - 10/09/2021 3:56 PM EDT Images from the original note were not included. Mutually Agreed Upon Goals Eating Plan: [employer] BRE - Log intake 7 days per week. Replace skipped meals with a protein supplement. Bariatric Plate Method Activity: Walking as tolerated. Chair exercises Sleep: No electronic for 30 minutes prior to sleep 2 nights per week. Practice Sleep Hygiene. CPAP nightly Stress: BRE for meditation - Mindful Moments by [facility] WellnessRenetta De La Torre Insight Timer https://www.ServiceFrame/health/mental-health/fsu-bopoviipdi-nbpphj-android-ap ps#our-picks Steps to Follow Bariatric Plate Total [...] own fruit infused price >> lemon or [place] with oranges, blackberries, strawberries and fresh mint, [...] with food. Calcium Citrate with Vitamin D 9267-9118 mg calcium - DO NOT TAKE WITH IRON OR MULTIVITAMIN Vitamin D3 - take 3,000 international unit(s) per day from all sources documented in this encounterAdams County Hospital08-25-2022 History of Present illness Narrative* Sabina [...] 32.28 kg/(m^2) Total weight loss: 42 lbs Harrison weight: 70.3 kg (154 lb 14.5 oz) [...] which included preparing to see the patient, utqb-yx-hmam patient care, completing clinical documentation, obtaining and/or reviewing separately obtained history, performing a medically appropriate examination, counseling and educating the pat ient/family/caregiver, ordering medications, tests, or procedures, independently interpreting results (not separately reported), and communicating results to the patient/family/caregiver. Medical Decision Making: Level: 1 - N/A Sabina Joy APRN.BETH documented in this encounterAdams County Hospital07-16-2022 Hospital Discharge instructions* Discharge Instructions* Pablo Atwood DO - 08/30/2021 4:11 AM EDT Please take all medications as prescribed and follow-up with your oral surgeon on Wednesday as scheduled. * Attachments The following attachments cannot be sent through Care Everywhere. * Tooth: Abscessed (Namibian) documented in [facility] [employer] Work Phone: 1(943) 330-238807-15-2022 Miscellaneous Notes* Telephone Encounter - Justine Shabazz PA-C - 08/29/2021 2:55 PM EDT Pharmacy generated request, refill not appropriate. Justine Shabazz PA-C documented in this encounterAdams County Hospital07-15-2022 Instructions* Patient Instructions* Justine Shabazz PA-C [...] and carry free weights documented in this encounterAdams County Hospital07-15-2022 History of Present illness Narrative* Justine Shabazz PA-C - 08/29/2021 2:16 PM EDT POST OP DISTANCE HEALTH VIRTUAL VISIT DOCUMENTATION NOTE This virtual visit was performed via video enabled technology, and the patient provided consent to be evaluated and managed using this virtual visit and video enabled technology. [employer] Platform: [employer] Club Virtual Visit People present : uJstine Shabazz PA-C and Patient Time Spent for [...] Nica Shabazz, MS, PA-C documented in this encounterAdams County Hospital07-14-2022 Instructions* Patient Instructions* Xiomara Martinez RD [...] Fusion One a Day multivitamin capsule PLUS 1706-4547 mg calcium citrate 5. Exercise: strive for [...] or sooner if needed documented in this encounterAdams County Hospital07-14-2022 History of Present illness Narrative* Xiomara Martinez RD - 08/28/2021 7:54 AM EDT [facility] Nutrition Therapy: Virtual Consult Re-assessment This [...] Fluids: water (64 oz), gatorade zero, Body [place] light Exercise: limited to PT due to [...] Rate: 1635 Energy needs for weight loss 6077-8944 (15-20 carina/kg current weight) Protein needs: 75-93 [...] Fusion One a Day multivitamin capsule PLUS 0494-9944 mg calcium citrate 5. Exercise: strive for [...] by: Xiomara Martinez RD documented in this encounterAdams County Hospital07-08-2022 Evaluation note* Encounter Date Diagnosis Assessment Notes Treatment Notes Treatment Clinical Notes Aug, PTSD (post-traumatic stress disorder) (ICD-10 - F43.10) [facility] Other 07-08-2022 Miscellaneous Notes* Telephone Encounter - Grecia Wallace - 08/22/2021 10:40 AM EDT Pharmacy fax requesting refills as follows: patient has a follow up visit 09/24/21 Pending Prescriptions Disp Refills OMEPRAZOLE 40 MG CAPSULE,DELAYED RELEASE 60 capsule 0 Sig: Take 1 capsule by mouth twice daily. ELIJAH: No Please review and advise. Grecia Wallace documented in this encounterAdams County Hospital07-03-2022 Evaluation note* Encounter Date Diagnosis Assessment [...] system will be more sensitive than normal. [facility] Other 06-30-2022 Miscellaneous Notes* Telephone Encounter - Justine Shabazz PA-C - 08/14/2021 2:51 PM EDT Pharmacy generated request, refill not appropriate. Justine Shabazz PA-C documented in this encounterAdams County Hospital06-17-2022 Instructions* Patient Instructions* Justine Shabazz PA-C [...] hyperextension(moving leg backward) and letting your feet turning machine set up operator when standing or laying flat- until 3 [...] others. Follow-up: 4 weeks documented in this encounterAdams County Hospital06-17-2022 History of Present illness Narrative* Justine Shabazz PA-C - 08/01/2021 10:55 AM EDT POST OP DISTANCE HEALTH VIRTUAL VISIT DOCUMENTATION NOTE This virtual visit was performed via video enabled technology, and the patient provided consent to be evaluated and managed using this virtual visit and video enabled technology. Distance Health Platform: CipherMax Zoom Virtual Visit People present : Justine Shabazz PA-C and Patient Time Spent for video encounter, record review and documentation: 15 minutes CHIEF COMPLAINT (CC): Post op right hip HISTORY OF PRESENT ILLNESS (HPI): 3 weeks s/p 1. right hip arthroscopy. 2. Acetabuloplasty CPT 15998 3. Labral repair. CPT 73632 4. Femoroplasty. CPT 00498 5. Capsular Closure DOS: 08/10/21 Denies systemic [...] will review MRI right knee (uploaded in [employer]). She has been referredto physician in [place] and was recommended to have osteotomy, she [...] hyperextension(moving leg backward) and letting your feet turning machine set up operator when standing or laying flat- until 3 [...] Justine Shabazz MS, GABRIELLA documented in this encounterAdams County Hospital05-20-2022 History of Present illness Narrative* Justine Shabazz PA-C - 07/04/2021 10:59 AM EDT AMBULATORY TELEPHONE VISIT Abbey Garcia has consented to this telephone encounter. Persons Present: patient Chief Complaint/Reason: Pre op right hip HPI: 31 y/o female scheduled for right hip arthroscopy with Dr Yousif 07/10/21 at [facility]. 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 Pre op instructions sent via Appland. DONAVAN Douglas documented in this encounterAdams County Hospital05-04-2022 History of Present illness Narrative* Kuldip Yousif MD - 06/18/2021 11:00 AM EDT x * Kuldip Yousif MD - 06/18/2021 10:23 AM EDT Images from the original note were not included. DEPARTMENT OF ORTHOPAEDICS Consultation as a request of Shanna June NP [address] [place] [address] Chief Complaint: Right hip pain HISTORY OF [...] Bilateral arthroscopic knee surgery- was catcher in [facility] PICC LINE INSERT/CONSULT 12/24/2020 VAGINAL [...] No history of dysuria, frequency or incontinence TRANSPORTATION SECURITY SCREENER: Negative for abnormal vaginal bleeding, abnormal vaginal [...] Past Histories independently gathered by the clinical media production support manager and the remaining scribed note accurately describes my personal service to the patient. Kuldip Yousif MD documented in this encounterAdams County Hospital04-18-2022 History of Present illness Narrative* Lucie [...] to that time. documented in this encounterOS[facility] note * Encounter Date Diagnosis [...] intake. Mar, Other Asthma material was printed [facility] Other 12-14-2021 Evaluation note* Encounter Date Diagnosis [...] to be seen. Also always know the [facility] Emergency Number is 24 hours a [...] surgeon after discussing options and treatment locations. [facility] 07-20-2021 History of Past illness Narrative* Problem Noted Date Resolved Date Obesity 09/03/2020 11/29/2020 Abdominal pain 02/01/2020 04/08/2020 Moderate episode of recurrent major depressive d isorder 11/21/2019 01/03/2020 Obesity, Class II, BMI 35-39.9 10/13/2019 1 Last Assessment & Plan: Assessment: BMI 38.74 documented as of this encounter (statuses as of 06/18/2021) [facility] History of Past illness Narrative* Problem Noted Date Resolved Date Obesity 09/03/2020 11/29/2020 Abdominal pain 02/01/2020 04/08/2020 Moderate episode of recurrent major depressive d isorder 11/21/2019 01/03/2020 Obesity, Class II, BMI 35-39.9 10/13/2019 1 Last Assessment & Plan: Assessment: BMI 38.74 documented as of this encounter (statuses as of 06/23/2021) [address]20-2021 History of Past illness Narrative* Problem Noted Date Resolved Date Obesity 09/03/2020 11/29/2020 Abdominal pain 02/01/2020 04/08/2020 Moderate episode of recurrent major depressive d isorder 11/21/2019 01/03/2020 Obesity, Class II, BMI 35-39.9 10/13/2019 1 Last Assessment & Plan: Assessment: BMI 38.74 documented as of this encounter (statuses as of 07/09/2021) [facility]21 History of Past illness Narrative* Problem Noted Date Resolved Date Obesity 09/03/2020 11/29/2020 Abdominal pain 02/01/2020 04/08/2020 Moderate episode of recurrent major depressive d isorder 11/21/2019 01/03/2020 Obesity, Class II, BMI 35-39.9 10/13/2019 1 Last Assessment & Plan: Assessment: BMI 38.74 documented as of this encounter (statuses as of 07/15/2021) [facility]-20-2021 History of Past illness Narrative* Problem Noted Date Resolved Date Obesity 09/03/2020 11/29/2020 Abdominal pain 02/01/2020 04/08/2020 Moderate episode of recurrent major depressive d isorder 11/21/2019 01/03/2020 Obesity, Class II, BMI 35-39.9 10/13/2019 1 Last Assessment & Plan: Assessment: BMI 38.74 documented as of this encounter (statuses as of 07/28/2021) [facility]21 History of Past illness Narrative* Problem Noted Date Resolved Date Obesity 09/03/2020 11/29/2020 Abdominal pain 02/01/2020 04/08/2020 Moderate episode of recurrent major depressive d isorder 11/21/2019 01/03/2020 Obesity, Class II, BMI 35-39.9 10/13/2019 1 Last Assessment & Plan: Assessment: BMI 38.74 documented as of this encounter (statuses as of 08/01/2021) [address]20-2021 History of Past illness Narrative* Problem Noted Date Resolved Date Obesity 09/03/2020 11/29/2020 Abdominal pain 02/01/2020 04/08/2020 Moderate episode of recurrent major depressive d isorder 11/21/2019 01/03/2020 Obesity, Class II, BMI 35-39.9 10/13/2019 1 Last Assessment & Plan: Assessment: BMI 38.74 documented as of this encounter (statuses as of 08/14/2021) [facility]21 History of Past illness Narrative* Problem Noted Date Resolved Date Obesity 09/03/2020 11/29/2020 Abdominal pain 02/01/2020 04/08/2020 Moderate episode of recurrent major depressive d isorder 11/21/2019 01/03/2020 Obesity, Class II, BMI 35-39.9 10/13/2019 1 Last Assessment & Plan: Assessment: BMI 38.74 documented as of this encounter (statuses as of 08/22/2021) [address]20-[address]21 History of Past illness Narrative* Problem Noted Date Resolved Date Obesity 09/03/2020 11/29/2020 Abdominal pain 02/01/2020 04/08/2020 Moderate episode of recurrent major depressive d isorder 11/21/2019 01/03/2020 Obesity, Class II, BMI 35-39.9 10/13/2019 1 Last Assessment & Plan: Assessment: BMI 38.74 documented as of this encounter (statuses as of 08/28/2021) [facility] History of Past illness Narrative* Problem Noted Date Resolved Date Obesity 09/03/2020 11/29/2020 Abdominal pain 02/01/2020 04/08/2020 Moderate episode of recurrent major depressive d isorder 11/21/2019 01/03/2020 Obesity, Class II, BMI 35-39.9 10/13/2019 1 Last Assessment & Plan: Assessment: BMI 38.74 documented as of this encounter (statuses as of 08/29/2021) [address]20-2021 History of Past illness Narrative* Problem Noted Date Resolved Date Obesity 09/03/2020 11/29/2020 Abdominal pain 02/01/2020 04/08/2020 Moderate episode of recurrent major depressive d isorder 11/21/2019 01/03/2020 Obesity, Class II, BMI 35-39.9 10/13/2019 1 Last Assessment & Plan: Assessment: BMI 38.74 documented as of this encounter (statuses as of 08/29/2021) [facility]21 History of Past illness Narrative* Problem Noted Date Resolved Date Obesity 09/03/2020 11/29/2020 Abdominal pain 02/01/2020 04/08/2020 Moderate episode of recurrent major depressive d isorder 11/21/2019 01/03/2020 Obesity, Class II, BMI 35-39.9 10/13/2019 1 Last Assessment & Plan: Assessment: BMI 38.74 documented as of this encounter (statuses as of 09/02/2021) [address]20-2021 History of Past illness Narrative* Problem Noted Date Resolved Date Obesity 09/03/2020 11/29/2020 Abdominal pain 02/01/2020 04/08/2020 Moderate episode of recurrent major depressive d isorder 11/21/2019 01/03/2020 Obesity, Class II, BMI 35-39.9 10/13/2019 1 Last Assessment & Plan: Assessment: BMI 38.74 documented as of this encounter (statuses as of 10/09/2021) [facility]2021 History of Past illness Narrative* Problem Noted Date Resolved Date Obesity 09/03/2020 11/29/2020 Abdominal pain 02/01/2020 04/08/2020 Moderate episode of recurrent major depressive d isorder 11/21/2019 01/03/2020 Obesity, Class II, BMI 35-39.9 10/13/2019 1 Last Assessment & Plan: Assessment: BMI 38.74 documented as of this encounter (statuses as of 10/09/2021) [facility]2021 History of Past illness Narrative* Problem Noted Date Resolved Date Obesity 09/03/2020 11/29/2020 Abdominal pain 02/01/2020 04/08/2020 Moderate episode of recurrent major depressive d isorder 11/21/2019 01/03/2020 Obesity, Class II, BMI 35-39.9 10/13/2019 1 Last Assessment & Plan: Assessment: BMI 38.74 documented as of this encounter (statuses as of 10/21/2021) [facility]21 History of Past illness Narrative* Problem Noted Date Resolved Date Obesity 09/03/2020 11/29/2020 Abdominal pain 02/01/2020 04/08/2020 Moderate episode of recurrent major depressive d isorder 11/21/2019 01/03/2020 Obesity, Class II, BMI 35-39.9 10/13/2019 1 Last Assessment & Plan: Assessment: BMI 38.74 documented as of this encounter (statuses as of 11/18/2021) [facility]21 History of Past illness Narrative* Problem Noted Date Resolved Date Obesity 09/03/2020 11/29/2020 Abdominal pain 02/01/2020 04/08/2020 Moderate episode of recurrent major depressive d isorder 11/21/2019 01/03/2020 Obesity, Class II, BMI 35-39.9 10/13/2019 1 Last Assessment & Plan: Assessment: BMI 38.74 documented as of this encounter (statuses as of 11/18/2021) [facility] History of Past illness Narrative* Problem Noted Date Resolved Date Obesity 09/03/2020 11/29/2020 Abdominal pain 02/01/2020 04/08/2020 Moderate episode of recurrent major depressive d isorder 11/21/2019 01/03/2020 Obesity, Class II, BMI 35-39.9 10/13/2019 1 Last Assessment & Plan: Assessment: BMI 38.74 documented as of this encounter (statuses as of 11/19/2021) [facility]2021 History of Past illness Narrative* Problem Noted Date Resolved Date Obesity 09/03/2020 11/29/2020 Abdominal pain 02/01/2020 04/08/2020 Moderate episode of recurrent major depressive d isorder 11/21/2019 01/03/2020 Obesity, Class II, BMI 35-39.9 10/13/2019 1 Last Assessment & Plan: Assessment: BMI 38.74 documented as of this encounter (statuses as of 11/19/2021) [facility]2021 History of Past illness Narrative* Problem Noted Date Resolved Date Obesity 09/03/2020 11/29/2020 Abdominal pain 02/01/2020 04/08/2020 Moderate episode of recurrent major depressive d isorder 11/21/2019 01/03/2020 Obesity, Class II, BMI 35-39.9 10/13/2019 1 Last Assessment & Plan: Assessment: BMI 38.74 documented as of this encounter (statuses as of 12/17/2021) [facility]20[facility] History of Past illness Narrative* Problem Noted Date Resolved Date Obesity 09/03/2020 11/29/2020 Abdominal pain 02/01/2020 04/08/2020 Moderate episode of recurrent major depressive d isorder 11/21/2019 01/03/2020 Obesity, Class II, BMI 35-39.9 10/13/2019 1 Last Assessment & Plan: Assessment: BMI 38.74 documented as of this encounter (statuses as of 12/25/2021) [facility] History of Past illness Narrative* Problem Noted Date Resolved Date Obesity 09/03/2020 11/29/2020 Abdominal pain 02/01/2020 04/08/2020 Moderate episode of recurrent major depressive d isorder 11/21/2019 01/03/2020 Obesity, Class II, BMI 35-39.9 10/13/2019 1 Last Assessment & Plan: Assessment: BMI 38.74 documented as of this encounter (statuses as of 12/25/2021) [facility]21 History of Past illness Narrative* Problem Noted Date Resolved Date Obesity 09/03/2020 11/29/2020 Abdominal pain 02/01/2020 04/08/2020 Moderate episode of recurrent major depressive d isorder 11/21/2019 01/03/2020 Obesity, Class II, BMI 35-39.9 10/13/2019 1 Last Assessment & Plan: Assessment: BMI 38.74 documented as of this encounter (statuses as of 12/25/2021) [facility]21 History of Past illness Narrative* Problem Noted Date Resolved Date Obesity 09/03/2020 11/29/2020 Abdominal pain 02/01/2020 04/08/2020 Moderate episode of recurrent major depressive d isorder 11/21/2019 01/03/2020 Obesity, Class II, BMI 35-39.9 10/13/2019 1 Last Assessment & Plan: Assessment: BMI 38.74 documented as of this encounter (statuses as of 12/26/2021) [facility]21 History of Past illness Narrative* Problem Noted Date Resolved Date Obesity 09/03/2020 11/29/2020 Abdominal pain 02/01/2020 04/08/2020 Moderate episode of recurrent major depressive d isorder 11/21/2019 01/03/2020 Obesity, Class II, BMI 35-39.9 10/13/2019 1 Last Assessment & Plan: Assessment: BMI 38.74 documented as of this encounter (statuses as of 01/01/2022) [facility]21 History of Past illness Narrative* Problem Noted Date Resolved Date Obesity 09/03/2020 11/29/2020 Abdominal pain 02/01/2020 04/08/2020 Moderate episode of recurrent major depressive d isorder 11/21/2019 01/03/2020 Obesity, Class II, BMI 35-39.9 10/13/2019 1 Last Assessment & Plan: Assessment: BMI 38.74 documented as of this encounter (statuses as of 01/02/2022) [facility]21 History of Past illness Narrative* Problem Noted Date Resolved Date Obesity 09/03/2020 11/29/2020 Abdominal pain 02/01/2020 04/08/2020 Moderate episode of recurrent major depressive d isorder 11/21/2019 01/03/2020 Obesity, Class II, BMI 35-39.9 10/13/2019 1 Last Assessment & Plan: Assessment: BMI 38.74 documented as of this encounter (statuses as of 01/06/2022) [facility]2021 History of Past illness Narrative* Problem Noted Date Resolved Date Obesity 09/03/2020 11/29/2020 Abdominal pain 02/01/2020 04/08/2020 Moderate episode of recurrent major depressive d isorder 11/21/2019 01/03/2020 Obesity, Class II, BMI 35-39.9 10/13/2019 1 Last Assessment & Plan: Assessment: BMI 38.74 documented as of this encounter (statuses as of 01/20/2022) [facility]2021 History of Past illness Narrative* Problem Noted Date Resolved Date Obesity 09/03/2020 11/29/2020 Abdominal pain 02/01/2020 04/08/2020 Moderate episode of recurrent major depressive d isorder 11/21/2019 01/03/2020 Obesity, Class II, BMI 35-39.9 10/13/2019 1 Last Assessment & Plan: Assessment: BMI 38.74 documented as of this encounter (statuses as of 01/28/2022) [facility]2021 History of Past illness Narrative* Problem Noted Date Resolved Date Obesity 09/03/2020 11/29/2020 Abdominal pain 02/01/2020 04/08/2020 Moderate episode of recurrent major depressive d isorder 11/21/2019 01/03/2020 Obesity, Class II, BMI 35-39.9 10/13/2019 1 Last Assessment & Plan: Assessment: BMI 38.74 documented as of this encounter (statuses as of 02/02/2022) [facility]21 History of Past illness Narrative* Problem Noted Date Resolved Date Obesity 09/03/2020 11/29/2020 Abdominal pain 02/01/2020 04/08/2020 Moderate episode of recurrent major depressive d isorder 11/21/2019 01/03/2020 Obesity, Class II, BMI 35-39.9 10/13/2019 1 Last Assessment & Plan: Assessment: BMI 38.74 documented as of this encounter (statuses as of 02/02/2022) [facility] History of Past illness Narrative* Problem Noted Date Resolved Date Obesity 09/03/2020 11/29/2020 Abdominal pain 02/01/2020 04/08/2020 Moderate episode of recurrent major depressive d isorder 11/21/2019 01/03/2020 Obesity, Class II, BMI 35-39.9 10/13/2019 1 Last Assessment & Plan: Assessment: BMI 38.74 documented as of this encounter (statuses as of 02/03/2022) [facility] History of Past illness Narrative* Problem Noted Date Resolved Date Obesity 09/03/2020 11/29/2020 Abdominal pain 02/01/2020 04/08/2020 Moderate episode of recurrent major depressive d isorder 11/21/2019 01/03/2020 Obesity, Class II, BMI 35-39.9 10/13/2019 1 Last Assessment & Plan: Assessment: BMI 38.74 documented as of this encounter (statuses as of 02/03/2022) [address]20-2021 History of Past illness Narrative* Problem Noted Date Resolved Date Obesity 09/03/2020 11/29/2020 Abdominal pain 02/01/2020 04/08/2020 Moderate episode of recurrent major depressive d isorder 11/21/2019 01/03/2020 Obesity, Class II, BMI 35-39.9 10/13/2019 1 Last Assessment & Plan: Assessment: BMI 38.74 documented as of this encounter (statuses as of 02/04/2022) [facility]2021 History of Past illness Narrative* Problem Noted Date Resolved Date Obesity 09/03/2020 11/29/2020 Abdominal pain 02/01/2020 04/08/2020 Moderate episode of recurrent major depressive d isorder 11/21/2019 01/03/2020 Obesity, Class II, BMI 35-39.9 10/13/2019 1 Last Assessment & Plan: Assessment: BMI 38.74 documented as of this encounter (statuses as of 02/06/2022) [facility] History of Past illness Narrative* Problem Noted Date Resolved Date Obesity 09/03/2020 11/29/2020 Abdominal pain 02/01/2020 04/08/2020 Moderate episode of recurrent major depressive d isorder 11/21/2019 01/03/2020 Obesity, Class II, BMI 35-39.9 10/13/2019 1 Last Assessment & Plan: Assessment: BMI 38.74 documented as of this encounter (statuses as of 02/15/2022) [address]20-2021 History of Past illness Narrative* Problem Noted Date Resolved Date Obesity 09/03/2020 11/29/2020 Abdominal pain 02/01/2020 04/08/2020 Moderate episode of recurrent major depressive d isorder 11/21/2019 01/03/2020 Obesity, Class II, BMI 35-39.9 10/13/2019 1 Last Assessment & Plan: Assessment: BMI 38.74 documented as of this encounter (statuses as of 02/18/2022) [address]20-2021 History of Past illness Narrative* Problem Noted Date Resolved Date Obesity 09/03/2020 11/29/2020 Abdominal pain 02/01/2020 04/08/2020 Moderate episode of recurrent major depressive d isorder 11/21/2019 01/03/2020 Obesity, Class II, BMI 35-39.9 10/13/2019 1 Last Assessment & Plan: Assessment: BMI 38.74 documented as of this encounter (statuses as of 03/05/2022) [address]20-2021 History of Past illness Narrative* Problem Noted Date Resolved Date Obesity 09/03/2020 11/29/2020 Abdominal pain 02/01/2020 04/08/2020 Moderate episode of recurrent major depressive d isorder 11/21/2019 01/03/2020 Obesity, Class II, BMI 35-39.9 10/13/2019 1 Last Assessment & Plan: Assessment: BMI 38.74 documented as of this encounter (statuses as of 03/05/2022) [address]20-2021 History of Past illness Narrative* Problem Noted Date Resolved Date Obesity 09/03/2020 11/29/2020 Abdominal pain 02/01/2020 04/08/2020 Moderate episode of recurrent major depressive d isorder 11/21/2019 01/03/2020 Obesity, Class II, BMI 35-39.9 10/13/2019 1 Last Assessment & Plan: Assessment: BMI 38.74 documented as of this encounter (statuses as of 03/07/2022) [facility] History of Past illness Narrative* Problem Noted Date Resolved Date Obesity 09/03/2020 11/29/2020 Abdominal pain 02/01/2020 04/08/2020 Moderate episode of recurrent major depressive d isorder 11/21/2019 01/03/2020 Obesity, Class II, BMI 35-39.9 10/13/2019 1 Last Assessment & Plan: Assessment: BMI 38.74 documented as of this encounter (statuses as of 03/30/2022) [facility] History of Past illness Narrative* Problem Noted Date Resolved Date Obesity 09/03/2020 11/29/2020 Abdominal pain 02/01/2020 04/08/2020 Moderate episode of recurrent major depressive d isorder 11/21/2019 01/03/2020 Obesity, Class II, BMI 35-39.9 10/13/2019 1 Last Assessment & Plan: Assessment: BMI 38.74 documented as of this encounter (statuses as of 06/14/2022) [facility] History of Past illness Narrative* Problem Noted Date Resolved Date Obesity 09/03/2020 11/29/2020 Abdominal pain 02/01/2020 04/08/2020 Moderate episode of recurrent major depressive d isorder 11/21/2019 01/03/2020 Obesity, Class II, BMI 35-39.9 10/13/2019 1 Last Assessment & Plan: Assessment: BMI 38.74 documented as of this encounter (statuses as of 06/18/2022) [facility]05-18-2021 Emergency department Note* Nabila Childs RN [...] 07/02/2020 2:36 PM EDT Emergency Department Report [facility] EMERGENCY DEPARTMENT Service Date:.07/02/20 PCP: Shanna June [...] Social Gatherings with Friends and Family: Attends Sikhism Services: Active Member of Clubs or Organizations: [...] POSITIVE ANTIBODY SCREEN NEGATIVE ARM BAND NUMBER [id number] URINALYSIS, MACRO Result Value Ref Range COLOR, [...] H&H is stable. She was started on [place] and Zofran. 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 Chart was 5 to the ROTOR BALANCER's office. 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 She is discharged [...] bleeding with large clots [facility] Plan note Future Appointments Appointment Date:07/23/2022 01:00:00 PM Scheduled Provider: Location:[facility] Appointment Type:CV Echo (FT) Appointment Date:09/07/2022 11:00:00 AM Scheduled Provider:Jamil PRICE MD Location[facility] Appointment Type:URO New Patient Future Scheduled Tests Radiology* US Renal 06/10/22 * Echo Transthoracic Complete 07/23/22 [facility]05-24-2020 Evaluation + Plan note Future Appointments Appointment Date:07/07/2022 11:00:00 AM Scheduled Provider: [facility] Type:[facility] Echo (FT) Appointment Date:07/08/2022 01:00:00 PM Scheduled Provider:Chetna Jack MD [facility] Type:Cardiology New Patient (FT) Future Scheduled Tests Radiology* US Renal 06/10/22 * Echo Transthoracic [facility]ments Appointment Date:06/11/2022 03:00:00 PM Scheduled Provider:Chetna Jack MD [facility] Type:Cardiology New Patient (FT) Future Scheduled Tests Radiology* US [facility]ments Appointment Date:09/07/2022 11:00:00 AM Scheduled Provider:Jamil PRICE MD Location:[facility] Appointment Type:URO New Patient Future Scheduled Tests Radiology* US Renal [facility]10[facility] App[facility]ments Appointment Date:01/20/2023 10:00:00 AM Scheduled Provider:Rajni Rouse MD Location[facility] Appointment Type:URO Office Visit Future Scheduled Tests Radiology* US Renal 06/10/22 [facility] evaluation + Plan note Future Appointments Appointment Date:10/21/2022 02:20:00 PM Scheduled Provider[facility] Appointment Date:11/20/2022 02:40:00 PM Scheduled Provider: [facility] Lab Draw Appointment Date:01/20/2023 10:00:00 AM Scheduled Provider:Rajni Rouse MD Location[facility] Appointment Type:URO Office Visit Future Scheduled Tests Laboratory* T3 Free 10/07/22 * Thyroid Stimulating Hormone 10/07/22 * Free T4 10/07/22 Radiology* US [facility] App[facility]ments Appointment Date:11/19/2022 02:30:00 PM Scheduled Provider:Odilon Strange MD [facility] Appointment Type:Cardiology New Patient (FT) Appointment Date:01/20/2023 10:00:00 AM Scheduled Provider:Rajni Rouse MD Location:[facility] Appointment Type:URO Office Visit Future Scheduled Tests Radiology* US Renal [facility]10[facility] App[facility]ments Appointment Date:07/13/2023 08:20:00 AM Scheduled Provider:OLGA GATICA PA-C Location:[facility] Appointment Type:URO Office Visit Appointment Date:08/04/2023 09:45:00 AM Scheduled Provider:Rajni Rouse MD Location:[facility] Appointment Type:URO Office Visit Future Scheduled Tests Radiology* US Renal 06/10/22 [facility] note* Diagnosis Complex ovarian cyst- Primary Other and unspecified ovarian cyst Uterine leiomyoma, unspecified location [facility]* Diagnosis Contusion of right thumb without damage to nail, initial encounter- Primary documented in this encounter [employer] Phone: evaluation note* Diagnosis 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 documented in this encounter [facility] note* Diagnosis Acetabular labrum tear, right, initial encounter- Primary documented in this encounter [facility] note* Diagnosis Tear of right acetabular labrum, subsequent encounter- Primary documented in this encounter [facility] note* Diagnosis Tear of right acetabular labrum, subsequent encounter- Primary Tear of right acetabular labrum, subsequent encounter documented in this encounter [facility] note* Diagnosis Generalized abdominal pain- Primary Abdominal pain, generalized documented in this encounter [facility] [employer] Phone: evaluation note* Diagnosis Tear of right acetabular labrum, subsequent encounter- Primary documented in this encounter [facility] noteNort [employer] Other [facility] noteNo [id number] Other [facility]* Diagnosis S/P laparoscopic sleeve gastrectomy- Primary Bariatric surgery status Obesity, Class I, BMI 30-34.9 Obesity, unspecified Dietary counseling and surveillance Dietary surveillance and counseling documented in this encounter [facility] note* Diagnosis Tear of right acetabular labrum, subsequent encounter- Primary documented in this encounter [facility] note* Diagnosis Dental infection- Primary Acute apical periodontitis of pulpal origin documented in this encounter [facility] [employer] Phone: evaluation note* Diagnosis Gastroesophageal reflux disease, unspecified whether esophagitis present- Primary Bariatric surgery status Weight disorder Other symptoms concerning nutrition, metabolism, and development Class 1 obesity with serious comorbidity and body mass index (BMI) of 31.0 to 31.9 in adult, unspecified obesity type S/P laparoscopic sleeve gastrectomy Bariatric surgery status Dietary counseling and surveillance Dietary surveillance and counseling documented in this encounter [facility] note* Diagnosis Gastroesophageal reflux disease without esophagitis- Primary Esophageal reflux documented in this encounter [facility] note* Diagnosis Gastroesophageal reflux disease without esophagitis- Primary Esophageal reflux S/P laparoscopic sleeve gastrectomy Bariatric surgery status documented in this encounter [facility] note* Diagnosis Regurgitation of food- Primary Gastroesophageal reflux disease, unspecified whether esophagitis present documented in this encounter [facility] note* Diagnosis Regurgitation of food Gastroesophageal reflux disease, unspecified whether esophagitis present documented in this encounter [facility] note* Diagnosis Gastroesophageal reflux disease without esophagitis Esophageal reflux documented in this encounter [facility] note* Diagnosis Gastroesophageal reflux disease, unspecified whether esophagitis present- Primary documented in this encounter [facility] note* Diagnosis Gastroesophageal reflux disease with esophagitis without hemorrhage- Primary RICHAR (obstructive sleep apnea) Obstructive sleep apnea (adult) (pediatric) Class 1 obesity with serious comorbidity and body mass index (BMI) of 33.0 to 33.9 in adult, unspecified obesity type S/P laparoscopic sleeve gastrectomy Bariatric surgery status Weight disorder Other symptoms concerning nutrition, metabolism, and development documented in this encounter [facility] note* Diagnosis Pre-op evaluation- Primary Preoperative examination, [...] esophagitis without hemorrhage [facility] Diagnosis S/P bariatric surgery- Primary Bariatric surgery status Postoperative pain Other acute postoperative pain Primary osteoarthritis involving multiple joints [facility] Diagnosis S/P gastric surgery- Primary Other postprocedural status Dietary counseling Dietary surveillance and counseling [facility] Diagnosis Postoperative pain Other acute postoperative pain [facility] Diagnosis Acetabular labrum tear, right, subsequent encounter- Primary [facility]* Diagnosis Esophageal dysphagia- Primary Dysphagia, pharyngoesophageal phase S/P gastric bypass Bariatric surgery status Postoperative malabsorption Other and unspecified postsurgical nonabsorption [facility] Diagnosis Esophageal dysphagia Dysphagia, pharyngoesophageal phase S/P gastric bypass Bariatric surgery status S/P bariatric surgery Bariatric surgery status [facility]* Diagnosis Polyarthralgia- Primary Pain in joint, multiple sites Malaise and fatigue Other malaise and fatigue Subjective fever S/P laparoscopic sleeve gastrectomy Bariatric surgery status History of syncope Other specified personal history presenting hazards to health History of adrenal insufficiency Personal history of other endocrine, metabolic, and immunity disorders Hypothyroidism, unspecified type [facility] Encounter to discuss test results- Primary Other specified counseling NO SHOW [facility] Diagnosis Constipation, unspecified constipation type- Primary Nausea Nausea alone Rash of face Rash and other nonspecific skin eruption Enlarged lymph nodes Enlargement of lymph nodes [facility] Diagnosis Vernal conjunctivitis of both eyes- Primary [facility] Diagnosis Rash and nonspecific skin eruption- Primary Rash and other nonspecific skin eruption Pain in eye, unspecified laterality Facial edema Edema [facility]* Diagnosis Encounter for surgical aftercare following surgery of digestive system- Primary Aftercare following surgery of the teeth, oral cavity and digestive system, NEC Impaired intestinal absorption Unspecified intestinal malabsorption Esophageal dysphagia Dysphagia, pharyngoesophageal phase Gastroesophageal reflux disease, unspecified whether esophagitis present S/P bariatric surgery Bariatric surgery status documented in this encounter [facility] note* Diagnosis ARSALAN (generalized anxiety disorder)- Primary Generalized anxiety disorder Panic disorder without agoraphobia Moderate recurrent major depression (HCC) Major depressive disorder, recurrent episode, moderate documented in this encounter [facility] note* Diagnosis Postoperative malabsorption- Primary Other and unspecified postsurgical nonabsorption S/P gastric bypass Bariatric surgery status Overweight (BMI 25.0-29.9) Overweight Dietary counseling and surveillance Dietary surveillance and counseling documented in this encounter [facility] note* Diagnosis ARSALAN (generalized anxiety disorder)- Primary Generalized anxiety disorder Panic disorder without agoraphobia Moderate recurrent major depression (HCC) Major depressive disorder, recurrent episode, moderate documented in this encounter [facility] note* Diagnosis Epigastric pain- Primary Abdominal pain, epigastric documented in this encounter [facility] note* Diagnosis Back strain, initial encounter- Primary documented in this encounter [facility] note* Diagnosis Generalized abdominal pain- Primary Abdominal pain, generalized documented in this encounter [facility] note* Diagnosis Nausea- Primary Nausea alone documented in this encounter [facility] note* Diagnosis Gastroesophageal reflux disease, unspecified whether esophagitis present documented in this encounter [facility] note* Diagnosis Generalized anxiety disorder documented in this encounter [facility] note* Diagnosis Nausea- Primary Nausea alone RUQ pain Abdominal pain, right upper quadrant History of cholecystectomy Other acquired absence of organ documented in this encounter [facility] note* Diagnosis Dehydration- Primary RUQ pain Abdominal pain, right upper quadrant documented in this encounter [facility] note* Diagnosis Right knee pain, unspecified chronicity- Primary documented in this encounter [facility] note* Diagnosis Post-operative pain- Primary Other acute postoperative pain 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 documented in this encounter [facility] note* Diagnosis Dehydration- Primary Nausea Nausea alone RUQ pain Abdominal pain, right upper quadrant documented in this encounter [facility] note* Diagnosis RUQ pain- Primary Abdominal pain, right upper quadrant Chronic nausea Nausea alone [facility] Diagnosis Chronic nausea Nausea alone RUQ pain Abdominal pain, right upper quadrant [facility]* Diagnosis Abdominal pain, unspecified abdominal location- Primary documented in this encounter [facility] note* Diagnosis Generalized abdominal pain- Primary Abdominal pain, generalized [facility]* Diagnosis Nausea Nausea alone RUQ pain Abdominal pain, right upper quadrant History of cholecystectomy Other acquired absence of organ documented [facility] this [facility]* Diagnosis Median arcuate ligament syndrome (HCC)- Primary Celiac artery compression syndrome Neuralgia and neuritis Neuralgia, neuritis, and radiculitis, unspecified documented [facility] this [facility]* Diagnosis Chronic pain syndrome- Primary 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 [facility]* Diagnosis Median arcuate ligament syndrome (HCC)- Primary Celiac artery compression syndrome 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 documented in this encounter [facility] noteNo assessment information availableLakehealth [facility] Work Phone: Evaluation note* Diagnosis Median arcuate ligament syndrome (CMS/HCC)- Primary Celiac artery compression syndrome PONV (postoperative nausea and vomiting) Nausea with vomiting RICHAR (obstructive sleep apnea) Obstructive sleep apnea (adult) (pediatric) Asthma Unspecified asthma Anxiety Anxiety state, unspecified Osteoarthritis Osteoarthrosis, unspecified whether generalized or localized, unspecified site Depression Depressive disorder, not elsewhere classified documented in this encounter [facility] Work Phone: Evaluation note* Diagnosis Abdominal pain- Primary Abdominal pain, unspecified site Abdominal pain Abdominal pain, unspecified site Nausea and vomiting, unspecified vomiting type History of gastric bypass Median arcuate ligament syndrome (CMS/HCC) Celiac artery compression syndrome documented in this encounter [facility] Work Phone: Evaluation note* Diagnosis Median arcuate ligament syndrome (CMS/HCC)- Primary Celiac artery compression syndrome documented in this encounter [facility] Work Phone: Evaluation note* Diagnosis Bariatric surgery status- Primary Dietary zinc deficiency Mineral deficiency, not elsewhere classified Vitamin D deficiency Unspecified vitamin D deficiency [facility]* Diagnosis Gastroesophageal reflux disease, unspecified whether esophagitis present- Primary Constipation, unspecified constipation type documented in this encounter [facility]* Diagnosis Nausea and vomiting, unspecified vomiting type- Primary documented in this encounter [facility]* Diagnosis Neuralgia and neuritis- Primary Neuralgia, neuritis, and radiculitis, unspecified Gastroesophageal reflux disease without esophagitis Esophageal reflux 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 S/P gastric bypass Bariatric surgery status documented in this encounter [facility]* Diagnosis ARSALAN (generalized anxiety disorder)- Primary Generalized anxiety disorder Panic disorder without agoraphobia Moderate recurrent major depression (HCC) Major depressive disorder, recurrent episode, moderate documented in this [facility]* Diagnosis Sudden onset of severe abdominal pain- Primary Abdominal pain, unspecified site Nausea and vomiting, unspecified vomiting type PEG (percutaneous endoscopic gastrostomy) status (HCC) Gastrostomy status [facility]* Diagnosis Median arcuate ligament syndrome (CMS-HCC)- Primary Celiac artery compression syndrome documented in this encounter [facility] Work Phone: Evaluation note* Diagnosis Epigastric [...] Nausea with vomiting documented in this encounter [facility] Work Phone: Evaluation note* Diagnosis Urinary frequency- Primary Urgency of urination documented [facility] this [facility]* Diagnosis Screening for genitourinary condition Screening for other and unspecified genitourinary condition documented in this encounter [facility] note* Diagnosis ARSALAN (generalized anxiety disorder)- Primary Generalized anxiety disorder Panic disorder without agoraphobia Moderate recurrent major depression (HCC) Major depressive disorder, recurrent episode, moderate documented in this encounter [facility]* Diagnosis Onset Date Resolution Status Intractable vomiting with nausea acute Small bowel obstruction [facility] Work Phone: Evaluation note* Diagnosis Onset Date Resolution Status Intractable vomiting with nausea acute Small bowel obstruction acut e Status post gastric bypass for obesity acute [facility] Work Phone: evaluation note* Diagnosis Chronic nausea- Primary Nausea alone History of laparoscopic partial gastrectomy Personal history of surgery to other organs History of sphincterotomy of sphincter of Oddi Other postprocedural status 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 documented in this encounter [facility] note* Diagnosis Chronic abdominal pain- Primary Abdominal pain, unspecified site Gastroesophageal reflux disease without esophagitis Esophageal reflux Neuralgia and neuritis Neuralgia, neuritis, and radiculitis, unspecified 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 S/P gastric bypass Bariatric surgery status documented in this encounter [facility] note* Diagnosis Gastroesophageal reflux disease without esophagitis Esophageal reflux Neuralgia and neuritis Neuralgia, neuritis, and radiculitis, unspecified 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 Chronic abdominal pain Abdominal pain, unspecified site S/P gastric bypass Bariatric surgery status documented in this encounter [facility] note* Diagnosis Gastroesophageal reflux disease without esophagitis Esophageal reflux Neuralgia and neuritis Neuralgia, neuritis, and radiculitis, unspecified 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 Chronic abdominal pain Abdominal pain, unspecified site S/P gastric bypass Bariatric surgery status documented in this encounter [facility] note* Diagnosis Neuralgia and neuritis- Primary Neuralgia, neuritis, and radiculitis, unspecified 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 documented [facility] Narrative - ReportedNort [employer] Other Hisnlzw general Narrative - Reported* Type Description Date [...] hystectomy 2020 Hospitalization History childbirths Hospitalization History [facility] 2019 Hospitalization History salvador axel-gastritis 1 03/2020 [facility] [employer] Other History general Narrative - Reported* Type [...] repair 03/20/2021 Hospitalization History childbirths Hospitalization History [facility] 2019 Hospitalization History [facility]-gastritis 1 03/2020 [facility] Other History of Present illness Narrative* Sherry Magaña MD - 04/20/2023 3:45 PM EST And I had a phone conversation patient and I had a phone conversation as she was at home in the [facility] and I was [facility]. She is recovering from a laparotomy for [...] she has seen her general surgeon at [facility] and will be following up with her gastro enterologist at the clinic. I will see her back by virtual visit in 2 months documented in [facility] encounterF[facility] Work Phone: Hospital course Narrative No data available for this section [facility] Axel [facility]* Attachments The following attachments cannot be sent through Care Everywhere. * Uterine Fibroids (Namibian) * Ovarian Cyst: Hemorrhagic (Namibian) [facility]* Attachments The following attachments cannot be sent through Care Everywhere. * Finger: Bruises (Namibian) * Subungual Hematoma (Namibian) [facility] Discharge instructions* Attachments The following attachments cannot be sent through Care Everywhere. * Abdominal Pain (Namibian) [facility] Discharge instructions No data available for this section [facility]* Attachments The following attachments cannot be sent through Care Everywhere. * Abdominal Pain (Namibian) documented in [facility] encounterHol[facility] Discharge instructions Additional Instructions Please take medications as prescribed. Return to ER or follow-up with PCP or GI specialist if symptoms worsen. 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.[facility] Work Phone: Hospital Discharge instructions Additional Instructions Take the promethazine either orally or rectally as needed for nausea vomiting 1 oxycodone every 6 hours for severe pain Continue your other medication Try to drink good fluids such as water Gatorade Pedialyte Follow-up with your specialist tomorrow as scheduled Return to the ER for worsening pain high fever vomiting despite medication or any other concernsLakehealth [facility] Work Phone: Hospital Discharge instructions Additional Instructions [facility] to manage care: - Full code - Routine vital signs - NPO - Maintain central line, routine care per protocol - Decompress the J-tube by placing it to gravity drain when she does develop nauseaLakehealth [facility] Center Work Phone: Hospital Discharge instructions Additional Instructions Follow up with your [facility] surgeon Return to the ED if you develop worsening symptoms or concernsLakehealth [facility] Work Phone: Progress note No data available for this section [facility] HospitalReason for referral (narrative)* Consultation (Routine) - New Request Specialty Diagnoses / Procedures Referred By Jazmine hooks Referred To Contact [facility] Diagnoses Articular cartilage disorder of right knee Lucie Mora MD [address] [place] [address] Referral ID Status Reason Start Date Expiration Date V isits Requested Visits Authorized [id number] New Request 06/02/2021 06/27/2022 1 1 [facility] for referral (narrative)* Diagnostic Procedure Only (Routine) - Closed Specialty Diagnoses / Procedures Referred By Contac t Referred To Contact XR IMAGING Diagnoses Acetabular labrum tear, right, initial encounter Procedures XR HIP GENERAL 3V PELV/AP/LAT RIGHT RADEX HIP UNILATERAL WITH PELVIS 2-3 VIEWS Kuldip Yousif MD [address] [place] [address] Xr Imaging Referral ID Status Reason Start Date Expiration Date V isits Requested Visits Authorized [id number] Closed Auto-Generate d Referral 06/18/2021 07/18/2022 1 1 [facility] for referral (narrative)* Outpatient Procedure (Routine) - Pending Review Specialty Diagnoses / Procedures Referred By Contac t Referred To Contact [facility] Diagnoses Gastroesophageal reflux disease without esophagitis Procedures EGD - THERAPEUTIC, EUS, OR TUBE INTERVENTIONS ESOPHAGOGASTRODUODENOSC [place] [address] [place] [address] [id number] [place] [address] Referral ID Status Reason Start Date Expiration Date Visits Requested Visits Authorized [id number] Pending Review Auto-Generat ed Referral 11/17/2021 11/17/2022 1 1 T [facility] for referral (narrative)* Outpatient Procedure (Routine) - Authorized Specialty Diagnoses / Procedures Referred By Contac t Referred To Contact [facility] Diagnoses Gastroesophageal reflux disease without esophagitis S/P laparoscopic sleeve gastrectomy Procedures PH IMPEDANCE INSERT OFF MEDS ESOPHGL FUNCJ G-ESOP RFLX IMPD ELTRD PROLNG Breanna Stern APRN.[employer] [address] [place] [address] [id number] Referral ID Status Reason Start Date Expiration Date Visits Requested Visits Authorized [id number] Authorized Auto-Generat ed Referral 11/19/2021 11/18/2022 1 1 [facility] for referral (narrative)* Outpatient Procedure (Routine) - Pending Review Specialty Diagnoses / Procedures Referred By Contac t Referred To Contact [facility] Diagnoses Regurgitation of food Gastroesophageal reflux disease, unspecified whether esophagitis present Procedures PH HUERTA INSERT OFF MEDS GASTROESOPHAG REFLX TEST W/TELEMTRY PH Breanna Hernandez APRN.[employer]I SHIFTER [id number] [place] [id number] Referral ID Status Reason Start Date Expiration Date Visits Requested Visits Authorized [id number] Pending Review Auto-Generat ed Referral 12/17/2022 1 1 [facility] for referral (narrative)* Outpatient Procedure (Routine) - Closed Specialty Diagnoses / Procedures Referred By Contac t Referred To Contact [facility] Diagnoses Gastroesophageal reflux disease without esophagitis Procedures EGD - THERAPEUTIC, EUS, OR TUBE INTERVENTIONS ESOPHAGOGASTRODUODENOSC OPY [place] [id number] [place] [address] Referral ID Status Reason Start Date Expiration Date V isits Requested Visits Authorized [id number] Closed Auto-Generate d Referral 11/17/2021 11/17/2022 1 1 [facility] for referral (narrative)* Outpatient Procedure (Routine) - Pending Review Specialty Diagnoses / Procedures Referred By Contac t Ref[facility] Diagnoses Pre-op evaluation Procedures ECG COMPLETE ECG ROUTINE ECG W/LEAST 12 LDS W/I&R Ioana Hogan PA-C [address] [place] [address] [facility] [place] [address] [place] [address] Referral ID Status Reason Start Date Expiration Date Visits Requested Visits Authorized [id number] Pending Review Auto-Generat ed Referral 2 01/28/2023 1 1 [facility] for referral (narrative)* Outpatient Procedure (Routine) - Authorized Specialty Diagnoses / Procedures Referred By Contac t Referred To [facility] Diagnoses Esophageal dysphagia S/P gastric bypass Procedures EGD - THERAPEUTIC, EUS, OR TUBE INTERVENTIONS EGD BALLOON DILATION ESOPHAGUS <30 MM DIAM Breanna Stern APRN.CNP [address] [place] [address] [facility] [place] [address] [place] [address] Referral ID Status Reason Start Date Expiration Date Visits Requested Visits Authorized [id number] Authorized Auto-Generat ed Referral 03/05/2022 03/05/2023 1 1 [facility] for referral (narrative)* Outpatient Procedure (Routine) - Closed Specialty Diagnoses / Procedures Referred By Contac t Referred To [facility] Diagnoses Esophageal dysphagia S/P gastric bypass Procedures EGD - THERAPEUTIC, EUS, OR TUBE INTERVENTIONS EGD BALLOON DILATION ESOPHAGUS <30 MM DIAM Breanna Stern APRN.CNP [address] [place] [address] [facility] [id number] [place] [address] Referral ID Status Reason Start Date Expiration Date V isits Requested Visits Authorized [id number] Closed Auto-Generate d Referral 03/05/2022 03/05/2023 1 1 [facility] for referral (narrative)* Outpatient Procedure (Routine) - Pending Review Specialty Diagnoses / Procedures Referred By Jazmine t Referred To Contact [facility] Diagnoses Constipation, unspecified constipation type Procedures [facility] ANORECTAL MANOMETRY ANORECTAL MANOMETRY Kasie Avalos MD [address] [place] [address] [address] Referral ID Status Reason Start Date Expiration Date Visits Requested Visits Authorized [id number] Pending Review Auto-Generat ed Referral 07/22/2022 07/23/2023 1 1 [facility] for referral (narrative)* Diagnostic Procedure Only (Routine) - Pending Review Specialty Diagnoses / Procedures Referred By Jazmine t Referred To Contact XR IMAGING Diagnoses S/P bariatric surgery Gastroesophageal reflux disease, unspecified whether esophagitis present Procedures XR UPPER GI ROUTINE DOUBLE CONTRAST/AIR RADIOLOGIC EXAM UPR GI TRC DOUBLE CONTRAST STUDY Breanna Stern APRN.CNP [address] [place] [address] Xr Imaging Referral ID Status Reason Start Date Expiration Date Visits Requested Visits Authorized [id number] Pending Review Auto-Generat ed Referral 09/18/2022 10/18/2023 1 1 [facility] for referral (narrative)* Outpatient Procedure (Routine) - Authorized Specialty Diagnoses / Procedures [facility] Diagnoses Epigastric pain Procedures EGD DIAGNOSTIC ESOPHAGOGASTRODUODENOSC OPY [place] [address] [place] [address] [facility] [facility] [id number] [place] [address] Referral ID Status Reason Start Date Expiration Date Visits Requested Visits Authorized [id number] Authorized Auto-Generat ed Referral 10/20/2022 10/21/2023 1 1 [facility] for referral (narrative)* Diagnostic Procedure Only (Routine) - Closed Specialty Diagnoses / Procedures Referred By Contac t Referred To Contact US IMAGING Diagnoses Nausea RUQ pain History of cholecystectomy Procedures US ABD RIGHT UPPER QUADRANT US ABDOMINAL REAL [place] W/[place] [id number] [place] [address] Referral ID Status Reason Start Date Expiration Date V isits Requested Visits Authorized [id number] Closed Auto-Generate d Referral 11/04/2022 12/04/2023 1 1 * Diagnostic Procedure Only (Routine) - Authorized Specialty Diagnoses / Procedures Referred By Contact Referred To Contact MOLECULAR & FUNCTIONAL IMAGING Diagnoses Nausea RUQ pain History of cholecystectomy Procedures NM HEPATOBILIARY W EF AND/OR RX HEPATOBIL SYST IMAG INC GB W/[place] [address] [id number] Molecular & Functional Imaging [address] [place] [address] Referral ID Status Reason Start Date Expiration Date Visits Requested Visits Authorized [id number] Authorized Auto-Generat ed Referral 11/04/2022 12/04/2023 1 1 [facility] for referral (narrative)* Diagnostic Procedure Only (Routine) - Pending Review Specialty Diagnoses / Procedures Referred By Contac t Referred To Contact XR IMAGING Diagnoses Right knee pain, unspecified chronicity Procedures XR KNEE GENERAL 4V AP BOTH/PA BOTH/LAT/MERC RIGHT RADIOLOGIC EXAM KNEE COMPLETE 4/MORE VIEWS Agustin Salmeron PA-C [address] [place] [address] Xr Imaging [id number] Referral ID Status Reason Start Date Expiration Date Visits Requested Visits Authorized [id number] Pending Review Auto-Generat ed Referral 11/04/2022 12/04/2023 1 1 [facility] for referral (narrative)* Outpatient Procedure (Urgent) - Authorized Specialty Diagnoses / Procedures Referred By Contac t Referred To Contact [facility] Diagnoses Chronic nausea RUQ pain Procedures US MESENTERIC ARTERY CMPLT VAS LAB DUP-SCAN ARTL TIARA ABDL/PEL/SCROT&/[place] [address] [place] [address] [facility] [address] [place] [address] Referral ID Status Reason Start Date Expiration Date Visits Requested Visits Authorized [id number] Authorized Auto-Generat ed Referral 11/23/2022 11/23/2023 1 1 [facility] for referral (narrative)* Outpatient Procedure (Urgent) - Closed Specialty Diagnoses / Procedures Referred By Contac t Referred To Contact [facility] Diagnoses Chronic nausea RUQ pain Procedures US MESENTERIC ARTERY CMPLT VAS LAB DUP-SCAN ARTL TIARA ABDL/PEL/SCROT&/RPR ORGN [facility] [place] [address] [place] [address] [facility] [address] [place] [address] Referral ID Status Reason Start Date Expiration Date V isits Requested Visits Authorized [id number] Closed Auto-Generate d Referral 11/23/2022 11/23/2023 1 1 [facility] for referral (narrative)* Diagnostic Procedure Only (Routine) - Closed Specialty Diagnoses / Procedures Referred By Contac t Referred To Contact US IMAGING Diagnoses Nausea RUQ pain History of cholecystectomy Procedures US ABD RIGHT UPPER QUADRANT US ABDOMINAL REAL TIME W/[place] [address] [place] [address] [place] [address] Referral ID Status Reason Start Date Expiration Date V isits Requested Visits Authorized [id number] Closed Auto-Generate d Referral 11/04/2022 12/04/2023 1 1 [facility] for referral (narrative)* Outpatient Procedure (Routine) - Authorized Specialty Diagnoses / Procedures [facility] Referred To Contact [facility] Diagnoses Gastroesophageal reflux disease, unspecified whether esophagitis present Procedures PH HUERTA INSERT ON EdRoverS GASTROESOPHAG REFLX TEST W/TELEMTRY PH JAKETRKasie Moore MD [address] [place] [address] [address] Referral ID Status Reason Start Date Expiration Date Visits Requested Visits Authorized [id number] Authorized Auto-Generat ed Referral 04/28/2023 04/27/2024 1 1 * Outpatient Procedure (Routine) - Authorized Specialty Diagnoses / Procedures Referred By Jazmine hooks Referred To Contact [facility] Diagnoses Gastroesophageal reflux disease, unspecified whether esophagitis present Procedures EGD - THERAPEUTIC, EUS, OR TUBE INTERVENTIONS ESOPHAGOGASTRODUODENOSC OPY TRANSORAL DIAGNOSTIC Kasie Avalos MD [address] [place] [address] [address] Referral ID Status Reason Start Date Expiration Date Visits Requested Visits Authorized [id number] Authorized Auto-Generat ed Referral 04/28/2023 04/27/2024 1 1 [facility] for visit NarrativeGeneral Surgery Referral UpdateNort AutomateIt Other Reason for visit Narrative* Outpatient Procedure (Routine) - Closed Specialty Diagnoses / Procedures [facility] Referred To Contact [facility] Diagnoses Gastroesophageal reflux disease without esophagitis Procedures EGD - THERAPEUTIC, EUS, OR TUBE INTERVENTIONS ESOPHAGOGASTRODUODENOSC OPY [place] [address] [place] [address] [address] Referral ID Status Reason Start Date Expiration Date V isits Requested Visits Authorized [id number] Closed Auto-Generate d Referral 11/17/2021 11/17/2022 1 1 [facility] for visit Narrative* Outpatient Procedure (Routine) - Closed Specialty Diagnoses / Procedures [facility] Referred To Contact [facility] Diagnoses Esophageal dysphagia S/P gastric bypass Procedures EGD - THERAPEUTIC, EUS, OR TUBE INTERVENTIONS EGD BALLOON DILATION ESOPHAGUS <30 MM DIAM Breanna Stern, COAL CUTTER.MINI SHIFTER [address] [place] [address] [id number] Referral ID Status Reason Start Date Expiration Date V isits Requested Visits Authorized [id number] Closed Auto-Generate d Referral 03/05/2022 03/05/2023 1 1 [facility] for visit Narrative* Outpatient Procedure (Urgent) - Closed Specialty Diagnoses / Procedures [facility] Referred To Contact [facility] Diagnoses Chronic nausea RUQ pain Procedures US MESENTERIC ARTERY CMPLT VAS LAB DUP-SCAN ARTL TIARA ABDL/PEL/SCROT&/[place] [address] [place] [address] [address] Referral ID Status Reason Start Date Expiration Date V isits Requested Visits Authorized [id number] Closed Auto-Generate d Referral 11/23/2022 11/23/2023 1 1 [facility] for visit Narrative* Diagnostic Procedure Only (Routine) - Closed Specialty Diagnoses / Procedures [facility] Referred To Contact US IMAGING Diagnoses Nausea RUQ pain History of cholecystectomy Procedures US ABD RIGHT UPPER QUADRANT US ABDOMINAL REAL TIME W/[place] [address] [place] [address] [place] [address] Referral ID Status Reason Start Date Expiration Date V isits Requested Visits Authorized [id number] Closed Auto-Generate d Referral 11/04/2022 12/04/2023 1 1 [facility] Summary Purpose Family History Relationship Condition Age at Onset Recorded Date/T fabiano father Hypothyroidism Unknown Not Specified Family history of mental disorder Unknow n Hypertension Unknown Diabetes mellitus Unknown Relationship Condition Age at Onset Recorded Date/T fabiano father Hypothyroidism Unknown mother Family history of mental disorder Unknown Hypertension Unknown Diabetes mellitus Unknown Advance Directives Documents on File Type Date Recorded 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 Advance Directive(s) 03/13/2021 9:49 AM Date Activated Date Inactivated Comments 12/06/2022 9:37 PM 12/09/2022 8:48 PM Question Answer Comments Full Code Order Discussed With: Patient Date Activated Date Inactivated Comments 11/22/2022 8:03 PM 11/23/2022 5:11 PM Question Answer Comments Full Code Order Discussed With: Patient Documents on File Type Date Recorded 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 Advance Directive(s) 03/13/2021 9:49 AM [...] Documents on File Type Date Recorded 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 Advance Directive(s) 07/04/2021 4:13 PM [...] Documents on File Type Date Recorded 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 Advance Directive(s) 03/13/2021 9:49 AM [...] with Follow Up in 24 Hours ([facility]) ([place]am[place]) documented in this encounter Assessments Diagnosis Lower abdominal pain- Primary Abdominal pain, other specified site Reason for Referral Status Reason Specialty Diagnoses / Procedures Referre d By Contact Referred To Contact Closed Procedures US PELVIC WITH TRANSVAGINAL WITH DOPPLER Juanito Laird PA-C [address] [place] [address] Specialty Diagnoses / Procedures Referred By Contact Referred To Contact [facility] Diagnoses Tear of right acetabular labrum, subsequent encounter Procedures CONSULT TO PHYSICAL THERAPY PHYSICAL THERAPY EVALUATION HIGH COMPLEX 45 MINS Justine Shabazz PA-C [address] [place] [address] [facility] [place] [address] [place] [address] Referral ID Status Reason Start Date Expiration Date Visits Requested Visits Authorized [id number] Pending Review Auto-Generat ed Referral 06/23/2021 06/23/2022 1 1 Reason 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 - Please request Dr. Keven Gomez [phone] Diagnosis 1 Hernia (K46.9) Referral Organization [facility] Priscila Guo Referring Provider First Name Shanna Referring Provider Last Name Slade Referring Provider Specialty Nurse Isabellet itionezita Referred Organization [facility] Referred Address [address] [facility],[address] Referred Provider Specialty General Surg ammon Referral Priority Routine Specialty Diagnoses / Procedures Referred By Jazmine hooks Referred To Contact Diagnoses S/P laparoscopic sleeve gastrectomy Procedures CONSULT TO BARIATRIC NUTRITION OFFICE/OUTPATIENT [facility] MDM 60-74 MINUTES Sabina Joy APRN.MINI SHIFTER [address] [place] [address] Referral ID Status Reason Start Date Expiration Date Visits Requested Visits Authorized [id number] Pending Review PCP Requested Referral 10/09/2021 10/09/2022 [...] BARIATRIC ESOPHAGOGASTRODUODENOSCO PY TRANSORAL DIAGNOSTIC Sabina Joy APRN.MINI SHIFTER [address] [place] [address] [facility] [place] [address] [place] [address] Referral ID Status Reason Start Date Expiration Date Visits Requested Visits Authorized [id number] Pending Review Auto-Generat ed Referral 10/09/2021 10/09/2022 1 1 Specialty Diagnoses / Procedures Referred By Jazmine hooks Referred To Contact Diagnoses RICHAR (obstructive sleep apnea) Procedures CONSULT TO SLEEP MEDICINE - ADULT OFFICE/OUTPATIENT [facility] MDM 60-74 MINUTES Sabina Joy APRN.MINI SHIFTER [address] [place] [address] Referral ID Status Reason Start Date Expiration Date Visits Requested Visits Authorized [id number] Authorized PCP Requested Referral 2 01/02/2023 1 1 Specialty Diagnoses / Procedures Referred By Contac t Referred To Contact [facility] Diagnoses S/P bariatric surgery Primary osteoarthritis involving multiple joints Procedures CONSULT TO PHYSICAL THERAPY PHYSICAL THERAPY EVALUATION HIGH COMPLEX 45 MINS Breanna Stern, COAL CUTTER.MINI SHIFTER [address] [place] [address] [facility] [place] [address] [place] [address] Referral ID Status Reason Start Date Expiration Date Visits Requested Visits Authorized [id number] Pending Review Auto-Generat ed Referral 2 02/03/2023 1 1 Specialty Diagnoses / Procedures Referred By Contac t Referred To Contact Endocrinology Diagnoses History of adrenal insufficiency Hypothyroidism, unspecified type Procedures CONSULT TO ENDOCRINOLOGY OFFICE/OUTPATIENT [facility] 60-74 MINUTES Aliyah Washburn PA-C [address] [place] [address] Referral ID Status Reason Start Date Expiration Date Visits Requested Visits Authorized [id number] Authorized PCP Requested Referral 06/12/2022 06/12/2023 1 1 Specialty Diagnoses / Procedures Referred By Contac t Referred To Contact Allergy Diagnoses Rash and nonspecific skin eruption Pain in eye, unspecified laterality Facial edema Procedures CONSULT TO ALLERGY/IMMUNOLOGY OFFICE/OUTPATIENT [facility] MDM 60-74 MINUTES Samara Evans MD [address] [place] [address] Referral ID Status Reason Start Date Expiration Date Visits Requested Visits Authorized [id number] Authorized PCP Requested Referral 07/28/2022 07/28/2023 1 1 Specialty Diagnoses / Procedures Referred By Contac t Referred To Contact CT IMAGING Diagnoses Generalized abdominal pain Procedures CTA ABD/PEL W IVCON CT ANGIO ABD&PLVIS CNTRST MTRL W/WO CNTRST Agustin Piper MD [address] [place] [address] Ct Imaging [address] [address] Referral ID Status Reason Start Date Expiration Date Visits Requested Visits Authorized [id number] Authorized Auto-Generat ed Referral 3 01/17/2023 1 1 Specialty Diagnoses / Procedures Referred By Contac t Referred To Contact Home Health Services Diagnoses Median arcuate ligament syndrome (CMS/HCC) Alicia Toro, [facility] [address] [place] [address] Referral ID Status Reason Start Date Expiration Date Visits Requested Visits Authorized [id number] Authorized Specialty Services Required 03/08/2023 03/07/2024 999 999 Specialty Diagnoses / Procedures Referred By Contac t Referred To Contact Home Health Services Diagnoses Other [place] [address] [place] [address] Referral ID Status Reason Start Date Expiration Date Visits Requested Visits Authorized [id number] Authorized Specialty Services Required 07/01/2023 06/30/2024 999 999 Specialty Diagnoses / Procedures Referred By Contac t Referred To Contact Francisco J Steve MD [address] [place] [address] Referral ID Status Reason Start Date Expiration Date V isits Requested Visits Authorized [id number] Pending Review 1 1 Specialty Diagnoses / Procedures Referred By Contac t Referred To Contact [facility] Diagnoses Chronic nausea History of laparoscopic partial gastrectomy History of sphincterotomy of sphincter of Oddi Median arcuate ligament syndrome (HCC) Procedures CONSULT TO [facility] LAPAROTOMY CELIOTOMY W/[place] [address] [place] [address] [facility] [address] [address] Referral ID Status Reason Start Date Expiration Date Visits Requested Visits Authorized [id number] Canceled Financial Clearance Required - OON Payor 07/19/2023 07/18/2024 99 99 Medications Administered Section Inactive Administered Medications - up to 3 most recent administrations Medication Order MAR Action Action Date Dose Rate Site benzocaine 20% (TOPEX) TOPICAL, X (OR/PROCEDURE) PRN, Starting on Heena 12/25/21 at 0939, Until Heena 12/25/21 at 0939, Intraprocedure Given 12/25/2021 9:39 AM EST 1 [place] Meperidine (PF) injection (DEMEROL) X (OR/PROCEDURE) PRN, [...] section and content) DATE CREATED AUTHOR 09/11/2017 [facility] DATE CREATED AUTHOR AUTHOR'S ORGANIZ ATION 06/03/2021 [facility] DATE CREATED AUTHOR AUTHOR'S ORGANIZ ATION 06/24/2022 [facility] DATE CREATED AUTHOR AUTHOR'S ORGANIZ ATION 11/01/2022 [facility] DATE CREATED AUTHOR AUTHOR'S ORGANIZ ATION 11/07/2022 [facility] DATE CREATED AUTHOR AUTHOR'S ORGANIZ ATION 11/22/2022 [facility] DATE CREATED AUTHOR AUTHOR'S ORGANIZ ATION 11/29/2022 [facility] DATE CREATED AUTHOR AUTHOR'S ORGANIZ ATION 12/16/2022 [facility] DATE CREATED AUTHOR AUTHOR'S ORGANIZ ATION 02/12/2023 [facility] DATE CREATED AUTHOR AUTHOR'S ORGANIZ ATION 02/18/2023 [facility] DATE CREATED AUTHOR AUTHOR'S ORGANIZ ATION 06/27/2023 [facility] DATE CREATED AUTHOR AUTHOR'S ORGANIZ ATION 07/11/2023 [facility] DATE CREATED AUTHOR AUTHOR'S ORGANIZ ATION 07/21/2023 [facility] DATE CREATED AUTHOR AUTHOR'S ORGANIZ ATION 07/22/2023 [facility] DATE CREATED AUTHOR AUTHOR'S ORGANIZ ATION 08/01/2023 [facility] DATE CREATED AUTHOR AUTHOR'S ORGANIZ ATION 08/06/2023 [facility] DATE CREATED AUTHOR AUTHOR'S ORGANIZ ATION 08/07/2023 [facility] DATE CREATED AUTHOR AUTHOR'S ORGANIZ ATION 08/12/2023 [facility] DATE CREATED AUTHOR AUTHOR'S ORGANIZ ATION 08/13/2023 [facility] Reason for Visit (unrecogniz ed section and content) Reason Comments Fatigue Anxiety Stress Specialty Diagnoses / Procedures Referred By Jazimne hooks Referred To Contact Psychology / ADULT PSYCHOLOGY Diagnoses follow up Procedures VIDEO PSYC/PSYL EST Pablo Lebron, ROSALBA [id number] Pablo Lebron, ROSALBA [phone] Referral ID Status Reason Start Date Expiration Date V isits Requested Visits Authorized [id number] Pending Review 06/09/2023 09/07/2023 1 1 Reason Comments Abdominal Pain RUQ abdominal pain t hat is spreading across her back and into the left side. pt states that she does not have a gallbladder or appendix and has been treated by [facility] recently for bowel adhesions and it is just getting worse. 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 Reason Comments Follow-up Pt presents for [...] GASTROESOPHAG REFLX TEST W/TELEMTRY PH JAKETRBreanna Lazaro APRN.MINI SHIFTER [address] [place] [address] [facility] [place] [address] [place] [address] Referral ID Status Reason Start Date Expiration Date V isits Requested Visits Authorized [id number] Closed Auto-Generate d Referral 12/25/2021 12/17/2022 1 [...] VIDEO PSYC/PSYL EST Self Pablo Lebron, PSYD [phone] Referral ID Status Reason Start Date Expiration Date V isits Requested Visits Authorized [id number] Outside PCP 09/21/2022 12/20/2022 1 1 Reason Comments Anxiety Stress Specialty Diagnoses / Procedures Referred By Contac t Referred To Contact Psychology / ADULT PSYCHOLOGY Diagnoses Follow up Procedures VIDEO PSYC/PSYL EST Pablo Lebron, PSYD [address] [facility] [address] [place] [address] Pablo Lebron, PSYD [address] [place] [address] Referral ID Status Reason Start Date Expiration Date V isits Requested Visits Authorized [id number] Pending Review 10/05/2022 01/03/2023 1 1 Reason [...] CT scans showing possible kidney stones near [facility], here today because hands turned brown [...] 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] Procedures [place] UNLISTED PX ABDOMEN MUSCULOSKELETAL SYSTEM Release Median Arcuate Ligament [place] [address] [place] [address] [place] [address] [place] [address] Referral ID Status Reason Start Date Expiration Date Visits Re quested Visits Authorized [id number] 1 1 Reason Comments Abdominal Pain Specialty Diagnoses / Procedures Referred By Jazmine hooks Referred To Contact Diagnoses Abdominal pain History of gastric bypass Nausea and vomiting, unspecified vomiting type nausea and vomiting [place] [address] [place] [address] [place] [address] [place] [address] Referral ID Status Reason Start Date Expiration Date Visits Re quested Visits Authorized [id number] 1 1 Reason Comments Weight Loss Surgery Reason Comments Established Patient Reason Comments Appointment Cancel EGD Reason Comments Patient Question Reason Comments Vomiting Reason Comments 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 Emergency Department Report [facility] EMERGENCY DEPARTMENT Service Date:.01/30/20 PCP: Shanna June Chief Complaint: Chief Complaint Patient presents with Abdominal Pain RUQ abdominal pain that is spreading across her back and into the left side. pt states that she does not have a gallbladder or appendix and has been treated by [facility] recently for bowel adhesions [...] file Gets together: Not on file Attends evangelical service: Not on file Active member of [...] with a prescription of Zofran and some [place] to help with some of the discomfort. [...] information. . . Agustin Gustafson MD 01/30/[address] Gustafson at the bedside documented in [...] 1400 1412 (Given - Provid er: Nabila Chilsd RN) ondansetron 4mg/2ml (ZOFRAN) injection 4 mg [...] 08/28/2021 08/29/2021 08/30/2021 bupivacaine-EPINEPHrine PF (MARCAINE-w/EPINEPHRINE) 0.5% -1:[id number] injection 10 mL (COMPLETED) 10 mL, Dental, [...] at 0400 0405 (Given - Provid er: Deyvn Gottlieb RN) Scheduled Medication Order 10/29/2022 10/30/2022 [...] parameters not met)1200 (Not Given - Provider: Ndaia Zee RN - Reason: Order parameters not [...] line, Starting on 03/06/23 at 1240, Give WA if patient is unable to take orally [...] line, Starting on 03/06/23 at 1240
Give WA if patient is unable to take orally [...] Provider: Beatriz Dow RN)1100 (Given - Provider: Beatriz Dow RN)1851 (Given - Provider: Beatriz Dow [...] Care Provider Active Start: July 17, 2023 Shaan Sabillon PA-C Emergency Provider Active Start: July 17, 2023 Tahir Whitt MD Admit Provider, Attending Provider Active Start: July 17, 2023 Packing Checker Relationship Specialty Start Date End Date Shanna June FNP [address] [place] [address] PCP - General Nurse Practitioner - [facility] 01/30/20 Packing Checker Relationship Specialty Start Date End Date Shnana June CNP [address] [place] [address] PCP - General Family Practice 01/31/20 Antelmo Davey [address] [place] [phone] (Fax) 09/25/19 [place] [address] [place] [address] Consulting General Surgery 09/25/19 Shanna June CNP [address] [place] [address] Referring Family Practice 10/19/19 Packing Checker Relationship Specialty Start Date End Date Shanna June CNP [address] [place] [address] PCP - General Family Practice 01/31/20 Antelmo Davey MD [address] [facility] [place] [address] (Fax) 09/25/19 [place] [address] [place] [address] Consulting General Surgery 09/25/19 Shanna June, MINI SHIFTER [address] [place] [address] Referring Family Practice 10/19/19 Packing Checker Relationship Specialty Start Date End Date Shanna June CNP [address] [place] [address] PCP - General Family Practice 01/31/20 Antelmo Davey MD [address] [facility] [place] [address] (Fax) 09/25/19 [place] [address] [place] [address] Consulting General Surgery 09/25/19 Shanna June CNP [address] [place] [address] Referring Family Practice 10/19/19 Packing Checker Relationship Specialty Start Date End Date Shanna June CNP [address] [place] [address] PCP - General Family Practice 01/31/20 Antelmo Davey MD [address] [facility] [place] [address] (Fax) 09/25/19 [place] [address] [place] [address] Consulting General Surgery 09/25/19 Shanna June CNP [address] [place] [address] Referring Family Practice 10/19/19 Packing Checker Relationship Specialty Start Date End Date Wally Foley [address] [facility] [place] [address] PCP - General Specialist 07/27/21 Packing Checker Relationship Specialty Start Date End Date Shanna June CNP [address] [place] [address] PCP - General Family Practice 01/31/20 Antelmo Davey MD [address] [facility] [place] [address] (Fax) 09/25/[address] [place] [address] [facility] [address] Consulting General Surgery 09/25/19 Shanna June CNP [address] [place] [address] Referring Family Practice 10/19/19 Packing Checker Relationship Specialty Start Date End Date Shanna June CNP [address] [place] [address] PCP - General Family Practice 01/31/20 Antelmo Davey MD [address] [facility] [place] [address] (Fax) 09/25/19 [place] [address] [place] [address] Consulting General Surgery 09/25/19 Shanna June CNP [address] [place] [address] Referring Family Practice 10/19/19 Packing Checker Relationship Specialty Start Date End Date Shanna June CNP [address] [place] [address] PCP - General Family Practice 01/31/20 Antelmo Davey MD [address] [place] [address] (Fax) 09/25/19 [place] [address] [place] [address] Consulting General Surgery 09/25/19 Shanna June, MINI SHIFTER [address] [place] [address] Referring Family Practice 10/19/19 Packing Checker Relationship Specialty Start Date End Date Shanna June CNP [address] [place] [address] PCP - General Family Practice 01/31/20 Antelmo Davey MD [address] [facility] [place] [address] (Fax) 09/25/19 [place] [address] [place] [address] Consulting General Surgery 09/25/19 Shanna June, MINI SHIFTER [address] [place] [address] Referring Family Practice 10/19/19 Packing Checker Relationship Specialty Start Date End Date Shanna June CNP [address] [place] [address] PCP - General Family Practice 01/31/20 Antelmo Davey MD [address] [place] [address] (Fax) 09/25/19 [place] [address] [place] [address] Consulting General Surgery 09/25/19 Slade ShannaBETH tomlin [address] [place] [address] Referring Family Practice 10/19/19 Packing Checker Relationship Specialty Start Date End Date SladeDenyBETH pressley [address] [place] [address] PCP - General Family Practice 01/31/20 Antelmo Davey MD [address] [facility] [place] [address] 09/25/19 [place] [address] [place] [address] Consulting General Surgery 09/25/19 Shanna June CNP [address] [place] [address] Referring Family Practice 10/19/19 Packing Checker Relationship Specialty Start Date End Date Wally Foley Lesia [address] [place] [facility] [place] [address] PCP - General Specialist 07/27/21 Packing Checker Relationship Specialty Start Date End Date Shanna June CNP [address] [place] [address] PCP - General Family Practice 01/31/20 Antelmo Davey MD [address] [facility] [place] [address] 09/25/19 [place] [address] [place] [address] Consulting General Surgery 09/25/19 Shanna June CNP [address] [place] [address] Referring Family Practice 10/19/19 Packing Checker Relationship Specialty Start Date End Date Shanna June CNP [address] [place] [address] PCP - General Family Practice 01/31/20 Antelmo Davey MD [address] [facility] [place] [address] (Fax) 09/25/19 [place] [address] [place] [address] Consulting General Surgery 09/25/19 Shanna June CNP [address] [place] [address] Referring Family Practice 10/19/19 Packing Checker Relationship Specialty Start Date End Date Shanna June CNP [address] [place] [address] PCP - General Family Practice 01/31/20 Antelmo Davey MD [address] [facility] [place] [address] (Fax) 09/25/19 [place] [address] [place] [address] Consulting General Surgery 09/25/19 Shanna June CNP [address] [place] [address] Referring Family Practice 10/19/19 Packing Checker Relationship Specialty Start Date End Date Shanna June CNP [address] [place] [address] PCP - General Family Practice 01/31/20 Antelmo Davey MD [address] [facility] [place] [address] (Fax) 09/25/[address] [place] [address] [facility] [address] Consulting General Surgery 09/25/19 Shanna June CNP [address] [place] [address] Referring Family Practice 10/19/19 Packing Checker Relationship Specialty Start Date End Date Slade BETH Otero [address] [place] [address] PCP - General Family Medicine 01/31/20 Antelmo Davey MD [address] [place] [address] 09/25/[address] [place] [address] [facility] [address] Consulting General Surgery 09/25/19 Shanna June CNP [address] [place] [address] Referring Family Medicine 10/19/19 Packing Checker Relationship Specialty Start Date End Date Shanna June CNP [address] [place] [address] PCP - General Family Medicine 01/31/20 Antelmo Davey MD [address] [facility] [place] [address] (Fax) 09/25/[address] [place] [address] [facility] [place] [address] Consulting General Surgery 09/25/19 Shanna June CNP [address] [place] [address] Referring Family Medicine 10/19/19 Packing Checker Relationship Specialty Start Date End Date Shanna June CNP [address] [place] [address] PCP - General Family Medicine 01/31/20 Antelmo Davey MD [address] [facility] [place] [address] (Fax) 09/25/19 [place] [address] [place] [address] Consulting General Surgery 09/25/19 Slade Shanna, MINI SHIFTER [address] [place] [address] Referring Family Medicine 10/19/19 Packing Checker Relationship Specialty Start Date End Date Slade Shanna, MINI SHIFTER [address] [place] [address] PCP - General Family Medicine 01/31/20 Antelmo Davey MD [address] [facility] [place] [address] (Fax) 09/25/19 [place] [address] [place] [address] Consulting General Surgery 09/25/19 Slade Shanna, MINI SHIFTER [address] [place] [address] Referring Family Medicine 10/19/19 Packing Checker Relationship Specialty Start Date End Date SladeDenverShanna, MINI SHIFTER [address] [place] [address] PCP - General Family Medicine 01/31/20 Antelmo Davey MD [address] [facility] [place] [address] (Fax) 09/25/19 [place] [address] [place] [address] Consulting General Surgery 09/25/19 Shanna June, MINI SHIFTER [address] [place] [address] Referring Family Medicine 10/19/19 Packing Checker Relationship Specialty Start Date End Date Shanna June, MINI SHIFTER [address] [place] [address] PCP - General Family Medicine 01/31/20 Antelmo Davey MD [address] [facility] [place] [address] (Fax) 09/25/19 [place] [address] [place] [address] Consulting General Surgery 09/25/19 SladeShanna, [facility] [address] [place] [address] Referring Family Medicine 10/19/19 Packing Checker Relationship Specialty Start Date End Date Shanna June, MINI SHIFTER [address] [place] [address] PCP - General Family Medicine 01/31/20 Antelmo Davey MD [address] [place] [address] (Fax) 09/25/19 [place] [address] [place] [address] Consulting General Surgery 09/25/19 SladeDenyie, MINI SHIFTER [address] [place] [address] Referring Family Medicine 10/19/19 Packing Checker Relationship Specialty Start Date End Date Shanna June CNP [address] [place] [address] PCP - General Family Medicine 01/31/20 Antelmo Davey MD [address] [place] [address] (Fax) 09/25/19 [place] [address] [place] [address] Consulting General Surgery 09/25/19 Sahnna June, MINI SHIFTER [address] [place] [address] Referring Family Medicine 10/19/19 Packing Checker Relationship Specialty Start Date End Date Shanna June CNP [address] [place] [address] PCP - General Family Medicine 01/31/20 Antelmo Davey MD [address] [place] [address] (Fax) 09/25/19 [place] [address] [place] [address] Consulting General Surgery 09/25/19 Shanna June CNP [address] [place] [address] Referring Family Medicine 10/19/19 Packing Checker Relationship Specialty Start Date End Date Shanna June CNP [address] [place] [address] PCP - General Family Medicine 01/31/20 Antelmo Davey MD [address] [facility] [place] [address] (Fax) 09/25/19 [place] [address] [place] [address] Consulting General Surgery 09/25/19 Shanna June, MINI SHIFTER [address] [place] [address] Referring Family Medicine 10/19/19 Packing Checker Relationship Specialty Start Date End Date Shanna June, MINI SHIFTER [address] [place] [address] PCP - General Family Medicine 01/31/20 Antelmo Davey MD [address] [facility] [place] [address] (Fax) 09/25/[address] [place] [address] [facility] [address] Consulting General Surgery 09/25/19 Shanna June, MINI SHIFTER [address] [place] [address] Referring Family Medicine 10/19/19 Packing Checker Relationship Specialty Start Date End Date Shanna Juen, MINI SHIFTER [address] [place] [address] PCP - General Family Medicine 01/31/20 Antelmo Davey MD [address] [facility] [place] [address] (Fax) 09/25/19 [place] [address] [place] [address] Consulting General Surgery 09/25/19 Shanna June, MINI SHIFTER [address] [place] [address] Referring Family Medicine 10/19/19 Packing Checker Relationship Specialty Start Date End Date Wally Foley MD [address] [place] [address] PCP - General Family Medicine 01/19/22 Antelmo Davey MD [address] [facility] [place] [address] (Fax) 09/25/19 [place] [address] [place] [address] Consulting General Surgery 09/25/19 Shanna June, MINI SHIFTER [address] [place] [address] Referring Family Medicine 10/19/19 Packing Checker Relationship Specialty Start Date End Date Wally Foley MD [address] [place] [address] PCP - General Family Medicine 01/19/22 Antelmo Davey MD [address] [facility] [place] [address] (Fax) 09/25/19 [place] [address] [place] [address] Consulting General Surgery 09/25/19 Shanna June, MINI SHIFTER [address] [place] [address] Referring Family Medicine 10/19/19 Packing Checker Relationship Specialty Start Date End Date Wally Foley MD [address] [place] [address] PCP - General Family Medicine 01/19/22 Antelmo Davey MD [address] [place] [address] (Fax) 09/25/19 [place] [address] [place] [address] Consulting General Surgery 09/25/19 Shanna June, MINI SHIFTER [address] [place] [address] Referring Family Medicine 10/19/19 Packing Checker Relationship Specialty Start Date End Date Wally Foley MD [address] [place] [address] PCP - General Family Medicine 01/19/22 Antelmo Davey MD [address] [place] [address] (Fax) 09/25/[address] [place] [address] [facility] [address] Consulting General Surgery 09/25/19 Shanna June, MINI SHIFTER [address] [place] [address] Referring Family Medicine 10/19/19 Packing Checker Relationship Specialty Start Date End Date Wally Foley MD [address] [place] [address] PCP - General Family Medicine 01/19/22 Antelmo Davey MD [address] [place] [address] (Fax) 09/25/19 [place] [address] [place] [address] Consulting General Surgery 09/25/19 Shanna June, MINI SHIFTER [address] [place] [address] Referring Family Medicine 10/19/19 Packing Checker Relationship Specialty Start Date End Date Wally Foley MD [address] [place] [address] PCP - General Family Medicine 01/19/22 Antelmo Davey MD [address] [place] [address] (Fax) 09/25/[address] [place] [address] [facility] [place] [address] Consulting General Surgery 09/25/19 Shanna June, MINI SHIFTER [address] [place] [address] Referring Family Medicine 10/19/19 Packing Checker Relationship Specialty Start Date End Date Wally Foley MD [address] [place] [address] PCP - General Family Medicine 01/19/22 Antelmo Davey MD [address] [facility] [address] (Fax) 09/25/[address] [place] [address] [facility] [address] Consulting General Surgery 09/25/19 Shanna June, MINI SHIFTER [address] [place] [address] Referring Family Medicine 10/19/19 Packing Checker Relationship Specialty Start Date End Date Wally Foley MD [address] [place] [address] PCP - General Family Medicine 01/19/22 Antelmo Davey MD [address] [place] [address] (Fax) 09/25/19 [place] [address] [place] [address] Consulting General Surgery 09/25/19 Shanna June, MINI SHIFTER [address] [place] [address] Referring Family Medicine 10/19/19 Packing Checker Relationship Specialty Start Date End Date Wally Foley MD [address] [place] [address] PCP - General Family Medicine 01/19/22 Antelmo Davey MD [address] [facility] [place] [address] (Fax) 09/25/[address] [place] [address] [facility] [address] Consulting General Surgery 09/25/19 Shanna June, MINI SHIFTER [address] [place] [address] Referring Family Medicine 10/19/19 Packing Checker Relationship Specialty Start Date End Date Wally Foley MD [address] [place] [address] PCP - General Family Medicine 01/19/22 Antelmo Davey MD [address] [place] [address] (Fax) 09/25/19 [place] [address] [facility] [place] [address] Consulting General Surgery 09/25/19 Shanna June, MINI SHIFTER [address] [place] [address] Referring Family Medicine 10/19/19 Packing Checker Relationship Specialty Start Date End Date Wally Foley MD [address] [place] [address] PCP - General Family Medicine 01/19/22 Antelmo Davey MD [address] [place] [address] (Fax) 09/25/19 [place] [address] [facility] [place] [place] [address] Consulting General Surgery 09/25/19 Shanna June, MINI SHIFTER [address] [place] [address] Referring Family Medicine 10/19/19 Packing Checker Relationship Specialty Start Date End Date Wally Foley MD [address] [place] [address] PCP - General Family Medicine 01/19/22 Antelmo Davey MD [address] [place] [address] 09/25/[address] [place] [address] [facility] [place] [address] Consulting General Surgery 09/25/19 Shanna June, MINI SHIFTER [address] [place] [address] Referring Family Medicine 10/19/19 Agustin Valentino 112 [facility] 150 [place] [address] Referring Family Medicine 05/13/22 Packing Checker Relationship Specialty Start Date End Date Jaquan Morrow [address] [place] [address] PCP - General 06/16/22 Antelmo Davey MD [address] [place] [address] 09/25/19 [place] [address] [place] [address] Consulting General Surgery 09/25/19 Shanna June, MINI SHIFTER [address] [place] [address] Referring Family Medicine 10/19/19 Agustin Valentino 112 [facility] 150 [place] [address] Referring Family Medicine 05/13/22 Packing Checker Relationship Specialty Start Date End Date Jaquan Morrow [address] [place] [address] PCP - General 06/16/22 Antelmo Davey MD [address] [place] [address] (Fax) 09/25/19 [place] [address] [place] [address] Consulting General Surgery 09/25/19 Shanna June, MINI SHIFTER [address] [place] [address] Referring Family Medicine 10/19/19 Agustin Valentino 112 [facility] [address] [place] [address] Referring Family Medicine 05/13/22 Packing Checker Relationship Specialty Start Date End Date Jaquan Morrow [address] [place] [address] PCP - General 06/16/22 Antelmo Davey MD [address] [place] [address] (Fax) 09/25/19 [place] [address] [place] [address] Consulting General Surgery 09/25/19 Shanna June, MINI SHIFTER [address] [place] [address] Referring Family Medicine 10/19/19 Agustin Valentino [address] [facility] 150 [place] [address] Referring Family Medicine 05/13/22 Packing Checker Relationship Specialty Start Date End Date Jaquan Morrow [address] [place] [address] PCP - General 06/16/22 Antelmo Davey MD [address] [place] [address] 09/25/[address] [place] [address] [facility] [place] [address] Consulting General Surgery 09/25/19 Shanna June, MINI SHIFTER [address] [place] [address] Referring Family Medicine 10/19/19 Agustin Valentino [address] [facility] [address] [place] [address] Referring Family Medicine 05/13/22 Packing Checker Relationship Specialty Start Date End Date Jaquan Morrow [address] [place] [address] PCP - General 06/16/22 Antelmo Davey MD [address] [place] [address] 09/25/[address] [place] [address] [place] [address] Consulting General Surgery 09/25/19 Shanna June, MINI SHIFTER [address] [place] [address] Referring Family Medicine 10/19/19 Agustin Valentino 112 [facility] 150 [place] [address] Referring Family Medicine 05/13/22 Packing Checker Relationship Specialty Start Date End Date Jaquan Morrow [address] [place] [address] PCP - General 06/16/22 Antelmo Davey MD [address] [place] [address] 09/25/19 [place] [address] [place] [address] Consulting General Surgery 09/25/19 Shanna June, MINI SHIFTER [address] [place] [address] Referring Family Medicine 10/19/19 Agustin Valentino [address] [address] [place] [address] Referring Family Medicine 05/13/22 Packing Checker Relationship Specialty Start Date End Date Jaquan Morrow [address] [place] [address] PCP - General 06/16/22 Antelmo Davey MD [address] [place] [address] 09/25/[address] [place] [address] [facility] [place] [address] Consulting General Surgery 09/25/19 Shanna June, MINI SHIFTER [address] [place] [address] Referring Family Medicine 10/19/19 Agustin Valentino [address] [address] [place] [address] Referring Family Medicine 05/13/22 Packing Checker Relationship Specialty Start Date End Date Jaquan Morrow [address] [place] [address] PCP - General 06/16/22 Antelmo Davey MD [address] [place] [address] (Fax) 09/25/19 [place] [address] [place] [address] Consulting General Surgery 09/25/19 Shanna June, MINI SHIFTER [address] [place] [address] Referring Family Medicine 10/19/19 Agustin Valentino [address] [place] [address] [place] [address] Referring Family Medicine 05/13/22 Packing Checker Relationship Specialty Start Date End Date Jaquan Morrow [address] [place] [address] PCP - General 06/16/22 Antelmo Davey MD [address] [facility] [place] [address] (Fax) 09/25/19 [place] [address] [place] [address] Consulting General Surgery 09/25/19 Shanna June, MINI SHIFTER [address] [place] [address] Referring Family Medicine 10/19/19 Agustin Valentino [address] [place] [address] [place] [address] Referring Family Medicine 05/13/22 Packing Checker Relationship Specialty Start Date End Date Jaquan Morrow [address] [place] [address] PCP - General 06/16/22 Antelmo Davey MD [address] [place] [address] (Fax) 09/25/19 [place] [address] [place] [address] Consulting General Surgery 09/25/19 Shanna June, BETH [address] [place] [address] Referring Family Medicine 10/19/19 Agustin Valentino [address] [place] [address] [place] [address] Referring Family Medicine 05/13/22 Packing Checker Relationship Specialty Start Date End Date Jaquan Morrow [address] [place] [address] PCP - General 06/16/22 Antelmo Davey MD [address] [place] [address] (Fax) 09/25/19 [place] [address] [place] [address] Consulting General Surgery 09/25/19 Shanna June, BETH [address] [place] [address] Referring Family Medicine 10/19/19 Agustin Valentino [address] [facility] 150 [place] [address] Referring Family Medicine 05/13/22 Packing Checker Relationship Specialty Start Date End Date Jaquan Morrow [address] [place] [address] PCP - General 06/16/22 Antelmo Davey MD [address] [place] [address] (Fax) 09/25/19 [place] [address] [place] [address] Consulting General Surgery 09/25/19 Shanna June CNP [address] [place] [address] Referring Family Medicine 10/19/19 Agustin Valentino 112 [facility] 150 [place] [address] Referring Family Medicine 05/13/22 Packing Checker Relationship Specialty Start Date End Date Jaquan Morrow [address] [place] [address] PCP - General 06/16/22 Antelmo Davey MD [address] [place] [address] (Fax) 09/25/19 [place] [address] [place] [address] Consulting General Surgery 09/25/19 Shanna June CNP [address] [place] [address] Referring Family Medicine 10/19/19 Agustin Valentino PA [address] [facility] 150 [place] [address] Referring Family Medicine 05/13/22 Packing Checker Relationship Specialty Start Date End Date Jaquan Morrow [address] [place] [address] PCP - General 06/16/22 Antelmo Davey MD [address] [place] [address] 09/25/19 [place] [address] [place] [address] Consulting General Surgery 09/25/19 Shanna June, BETH [address] [place] [address] Referring Family Medicine 10/19/19 Agustin Valentino PA [address] [place] [address] Referring Family Medicine 05/13/22 Packing Checker Relationship Specialty Start Date End Date Wally Foley [address] [place] [address] PCP - General Specialist 07/27/21 Packing Checker Relationship Specialty Start Date End Date Shanna June FNP [address] [place] [address] PCP - General Nurse Practitioner - Family 01/30/20 Packing Checker Relationship Specialty Start Date End Date Jaquan Morrow [address] [place] [address] PCP - General 06/16/22 Antelmo Davey MD [address] [place] [address] (Fax) 09/25/19 [place] [address] [place] [address] Consulting General Surgery 09/25/19 Shanna June CNP [address] [place] [address] Referring Family Medicine 10/19/19 Agustin Valentino PA [address] [place] [address] [place] [address] Referring Family Medicine 05/13/22 Packing Checker Relationship Specialty Start Date End Date Jaquan Morrow [address] [place] [address] PCP - General 06/16/22 Antelmo Davey MD [address] [place] [address] (Fax) 09/25/19 [place] [address] [place] [address] Consulting General Surgery 09/25/19 Shanna June, BETH [address] [place] [address] Referring Family Medicine 10/19/19 Agustin Valentino PA [address] [facility] 150 [place] [address] Referring Family Medicine 05/13/22 Packing Checker Relationship Specialty Start Date End Date Jaquan Morrow [address] [place] [address] PCP - General 06/16/22 Antelmo Davey MD [address] [place] [address] (Fax) 09/25/19 [place] [address] [place] [address] Consulting General Surgery 09/25/19 Shanna June, BETH [address] [place] [address] Referring Family Medicine 10/19/19 Agustin Valentino PA [address] [facility] 150 [place] [address] Referring Family Medicine 05/13/22 Packing Checker Relationship Specialty Start Date End Date Jaquan Morrow [address] [place] [address] PCP - General 06/16/22 Antelmo Davey MD [address] [place] [address] 09/25/19 [place] [address] [place] [address] Consulting General Surgery 09/25/19 Shanna June, MINI SHIFTER [address] [place] [address] Referring Family Medicine 10/19/19 Agustin Valentino PA [address] [facility] 150 [place] [address] Referring Family Medicine 05/13/22 Packing Checker Relationship Specialty Start Date End Date Jaquan Morrow [address] [place] [address] PCP - General 06/16/22 Antelmo Davey MD [address] [place] [address] (Fax) 09/25/19 [place] [address] [place] [address] Consulting General Surgery 09/25/19 Shanna June, MINI SHIFTER [address] [place] [address] Referring Family Medicine 10/19/19 Agustin Valentino PA [address] [address] [place] [address] Referring Family Medicine 05/13/22 Packing Checker Relationship Specialty Start Date End Date Jaquan Morrow [address] [place] [address] PCP - General 06/16/22 Antelmo Davey MD [address] [facility] [place] [address] (Fax) 09/25/19 [place] [address] [place] [address] Consulting General Surgery 09/25/19 Shanna June, BETH [address] [place] [address] Referring Family Medicine 10/19/19 Agustin Valentino PA [address] [place] [address] [place] [address] Referring Family Medicine 05/13/22 Packing Checker Relationship Specialty Start Date End Date Jaquan Morrow [address] [place] [address] PCP - General 06/16/22 Antelmo Davey MD [address] [place] [address] (Fax) 09/25/19 [place] [address] [place] [address] Consulting General Surgery 09/25/19 Shanna June, BETH [address] [place] [address] Referring Family Medicine 10/19/19 Agustin Valentino PA [address] [address] Referring Family Medicine 05/13/22 Packing Checker Relationship Specialty Start Date End Date Jaquan Morrow [address] [place] [address] PCP - General 06/16/22 Antelmo Davey MD [address] [place] [address] (Fax) 09/25/19 [place] [address] [address] [place] [address] Consulting General Surgery 09/25/19 Shanna June CNP [address] [place] [address] Referring Family Medicine 10/19/19 Agustin Valentino PA [address] [place] [address] Referring Family Medicine 05/13/22 Packing Checker Relationship Specialty Start Date End Date Jaquan Morrow [address] [place] [address] PCP - General 06/16/22 Antelmo Davey MD [address] [place] [address] (Fax) 09/25/19 [place] [address] [place] [address] Consulting General Surgery 09/25/19 Shanna June, BETH [address] [place] [address] Referring Family Medicine 10/19/19 Agustin Valentino PA [address] [address] [place] [address] Referring Family Medicine 05/13/22 Packing Checker Relationship Specialty Start Date End Date Jaquan Morrow [address] [place] [address] PCP - General 06/16/22 Antelmo Davey MD [address] [place] [address] (Fax) 09/25/19 [place] [address] [place] [address] Consulting General Surgery 09/25/19 Shanna June, BETH [address] [place] [address] Referring Family Medicine 10/19/19 Agustin Valentino PA [address] [address] [place] [address] Referring Family Medicine 05/13/22 Packing Checker Relationship Specialty Start Date End Date Jaquan Morrow [address] [place] [address] PCP - General 06/16/22 Antelmo Davey MD [address] [place] [address] 09/25/19 [place] [address] [place] [address] Consulting General Surgery 09/25/19 Shanna June, BETH [address] [place] [address] Referring Family Medicine 10/19/19 Agustin Valentino PA [address] [place] [address] [place] [address] Referring Family Medicine 05/13/22 Packing Checker Relationship Specialty Start Date End Date Jaquan Morrow [address] [place] [address] PCP - General 06/16/22 Antelmo Davey MD [address] [place] [address] 09/25/19 [place] [address] [place] [address] Consulting General Surgery 09/25/19 Shanna June, MINI SHIFTER [address] [place] [address] Referring Family Medicine 10/19/19 Agustin Valentino PA [address] [facility] [place] [address] Referring Family Medicine 05/13/22 Packing Checker Relationship Specialty Start Date End Date Jaquan Morrow [address] [place] [address] PCP - General 06/16/22 Antelmo Davey MD [address] [facility] [place] [address] 09/25/19 [place] [address] [place] [address] Consulting General Surgery 09/25/19 Shanna June, BETH [address] [place] [address] Referring Family Medicine 10/19/19 Agustin Valentino PA [address] [place] [address] [place] [address] Referring Family Medicine 05/13/22 Packing Checker Relationship Specialty Start Date End Date Jaquan Morrow [address] [place] [address] PCP - General 06/16/22 Antelmo Davey MD [address] [place] [address] (Fax) 09/25/19 [place] [address] [place] [address] Consulting General Surgery 09/25/19 Shnana June, BETH [address] [place] [address] Referring Family Medicine 10/19/19 Agustin Valentino PA [address] [facility] [address] [place] [address] Referring Family Medicine 05/13/22 Packing Checker Relationship Specialty Start Date End Date Cristhian, Jaquan [address] [place] [address] PCP - General 06/16/22 Antelmo Davey MD [address] [place] [address] (Fax) 09/25/19 [place] [address] [place] [address] Consulting General Surgery 09/25/19 Shanna June CNP [address] [place] [address] Referring Family Medicine 10/19/19 Agustin Valentino PA [address] [facility] [address] [place] [address] Referring Family Medicine 05/13/22 Packing Checker Relationship Specialty Start Date End Date Jaquan Morrow [address] [place] [address] PCP - General 06/16/22 Antelmo Davey MD [address] [place] [address] 09/25/19 [place] [address] [place] [address] Consulting General Surgery 09/25/19 Shanna June, BETH [address] [place] [address] Referring Family Medicine 10/19/19 Agustin Valentino PA [address] [facility] [address] [place] [address] Referring Family Medicine 05/13/22 Packing Checker Relationship Specialty Start Date End Date Jaquan Morrow [address] [place] [address] PCP - General 06/16/22 Antelmo Davey MD [address] [place] [address] (Fax) 09/25/19 [place] [address] [address] [place] [address] Consulting General Surgery 09/25/19 Shanna June, BETH [address] [place] [address] Referring Family Medicine 10/19/19 Agustin Valentino PA [address] [facility] [address] [place] [address] Referring Family Medicine 05/13/22 Packing Checker Relationship Specialty Start Date End Date Jaquan Morrow [address] [place] [address] PCP - General 06/16/22 Antelmo Davey MD [address] [place] [address] 09/25/19 [place] [address] [place] [address] Consulting General Surgery 09/25/19 Shanna June CNP [address] [place] [address] Referring Family Medicine 10/19/19 Agustin Valentino PA [address] [facility] [address] [place] [address] Referring Family Medicine 05/13/22 Packing Checker Relationship Specialty Start Date End Date Jaquan Morrow [address] [place] [address] PCP - General 06/16/22 Antelmo Davey MD [address] [place] [address] 09/25/19 [place] [address] [place] [address] Consulting General Surgery 09/25/19 Shanna June, BETH [address] [place] [address] Referring Family Medicine 10/19/19 Agustin Valentino PA [address] [facility] [address] Referring Family Medicine 05/13/22 Packing Checker Relationship Specialty Start Date End Date Jaquan Morrow [address] [place] [address] PCP - General 06/16/22 Antelmo Davey MD [address] [place] [address] 09/25/19 [place] [address] [place] [address] Consulting General Surgery 09/25/19 Shanna June, MINI SHIFTER [address] [place] [address] Referring Family Medicine 10/19/19 Agustin Valentino PA [address] [place] [address] Referring Family Medicine 05/13/22 Packing Checker Relationship Specialty Start Date End Date Jaquan Morrow, COAL CUTTER.MINI SHIFTER [address] [place] [address] PCP - General 06/16/22 Antelmo Dvaey MD [address] [place] [address] 09/25/19 [place] [address] [place] [place] [address] Consulting General Surgery 09/25/19 Shanna June, BETH [address] [place] [address] Referring Family Medicine 10/19/19 Agustin Valentino PA [address] [facility] [address] [place] [address] Referring Family Medicine 05/13/22 Packing Checker Relationship Specialty Start Date End Date Jaquan Morrow COAL CUTTER.MINI SHIFTER [address] [place] [address] PCP - General 06/16/22 Antelmo Davey MD [address] [place] [address] (Fax) 09/25/19 [place] [address] [place] [address] Consulting General Surgery 09/25/19 hSanna June, BETH [address] [place] [address] Referring Family Medicine 10/19/19 Agustin Valentino PA [address] [place] [address] Referring Family Medicine 05/13/22 Packing Checker Relationship Specialty Start Date End Date Jaquan Morrow, COAL CUTTER.MINI SHIFTER [address] [place] [address] PCP - General 06/16/22 Antelmo Davey MD [address] [place] [address] (Fax) 09/25/19 [place] [address] [place] [address] Consulting General Surgery 09/25/19 Shanna June CNP [address] [place] [address] Referring Family Medicine 10/19/19 Agustin Valentino PA [address] [facility] [address] [place] [address] Referring Family Medicine 05/13/22 Packing Checker Relationship Specialty Start Date End Date Jaquan Morrow, COAL CUTTER.MINI SHIFTER [address] [place] [address] PCP - General 06/16/22 Antelmo Davey MD [address] [place] [address] 09/25/[address] [place] [address] [facility] [place] [place] [address] Consulting General Surgery 09/25/19 Shanna June, BETH [address] [place] [address] Referring Family Medicine 10/19/19 Agustin Valentino PA [address] [address] [place] [address] Referring Family Medicine 05/13/22 Packing Checker Relationship Specialty Start Date End Date Jaquan Morrow, COAL CUTTER.MINI SHIFTER [address] [place] [address] PCP - General 06/16/22 Antelmo Davey MD [address] [place] [address] 09/25/19 [place] [address] [place] [address] Consulting General Surgery 09/25/19 Shanna June, BETH [address] [place] [address] Referring Family Medicine 10/19/19 Agustin Valentino PA [address] [address] [place] [address] Referring Family Medicine 05/13/22 Team Status: Active Member Role Status Dates Jaquan Morrow NP-[place] Primary Care Provider Active Team Status: Inactive Member Role Status Dates Jaquan Morrow NP-[place] Primary Care Provider Active Claus Obrien DO Emergency Provider Active Roseline Mejia DO RES Active Packing Checker Relationship Specialty Start Date End Date Generic Provider, No Assigned MD Gabe [address] [place] [address] PCP - General Family Medicine 01/02/23 Packing Checker Relationship Specialty Start Date End Date Generic Provider, No Assigned PcpMD [address] [place] [address] PCP - General Family Medicine 01/02/23 Team [...] End: April 06, 2023 Trace Lowery , [facility]- Emergency Provider Active Start: April 06, 2023 End: April 06, 2023 Packing Checker Relationship Specialty Start Date End Date Generic Provider, No Assigned PcpMD [address] [place] [address] PCP - General Family Medicine 01/02/23 Packing Checker Relationship Specialty Start Date End Date Jaquan Morrow, COAL CUTTER.MINI SHIFTER [address] [place] [address] PCP - General 06/16/22 Antelmo Davey MD [address] [place] [address] 09/25/19 [place] [address] [place] [address] Consulting General Surgery 09/25/19 Shanna June, BETH [address] [place] [address] Referring Family Medicine 10/19/19 Agustin Valentino PA [address] [address] Referring Family Medicine 05/13/22 Packing Checker Relationship Specialty Start Date End Date Generic Provider, No Assigned PcpMD [address] [place] [address] PCP - General Family Medicine 01/02/23 Packing Checker Relationship Specialty Start Date End Date Jaquan Morrow COAL CUTTER.MINI SHIFTER [address] [place] [address] PCP - General 06/16/22 Antelmo Davey MD [address] [place] [address] 09/25/19 [place] [address] [place] [address] Consulting General Surgery 09/25/19 Shanna June, BETH [address] [place] [address] Referring Family Medicine 10/19/19 Agustin Valentino PA [address] [place] [address] Referring Family Medicine 05/13/22 Packing Checker Relationship Specialty Start Date End Date Jaquan Morrow, COAL CUTTER.MINI SHIFTER [address] [place] [address] PCP - General 06/16/22 Antelmo Davey MD [address] [place] [address] 09/25/19 [place] [address] [place] [address] Consulting General Surgery 09/25/19 Shanna June, BETH [address] [place] [address] Referring Family Medicine 10/19/19 Agustin Valentino PA [address] [address] Referring Family Medicine 05/13/22 Packing Checker Relationship Specialty Start Date End Date Jaquan Morrow, COAL CUTTER.MINI SHIFTER [address] [place] [address] PCP - General 06/16/22 Antelmo Davey MD [address] [place] [address] (Fax) 09/25/19 [place] [address] [place] [address] Consulting General Surgery 09/25/19 Shanna June CNP [address] [place] [address] Referring Family Medicine 10/19/19 Agustin Valentino PA [address] [place] [address] Referring Family Medicine 05/13/22 Packing Checker Relationship Specialty Start Date End Date Jaquan Morrow, COAL CUTTER.MINI SHIFTER [address] [place] [address] PCP - General 06/16/22 Antelmo Davey MD [address] [place] [address] 09/25/19 [place] [address] [place] [address] Consulting General Surgery 09/25/19 Shanna June CNP [address] [place] [address] Referring Family Medicine 10/19/19 Agustin Valentino PA [address] [address] [place] [address] Referring Family Medicine 05/13/22 Packing Checker Relationship Specialty Start Date End Date Jaquan Morrow, COAL CUTTER.MINI SHIFTER [address] [place] [address] PCP - General 06/16/22 Antelmo Davey MD [address] [place] [address] 09/25/19 [place] [address] [place] [address] Consulting General Surgery 09/25/19 Shanna June, BETH [address] [place] [address] Referring Family Medicine 10/19/19 Agustin Valentino PA [address] [address] [place] [address] Referring Family Medicine 05/13/22 Packing Checker Relationship Specialty Start Date End Date Generic Provider, No Assigned PcpMD PCP - General Family Medicine 01/02/23 Packing Checker Relationship Specialty Start Date End Date Jaquan Morrow, COAL CUTTER.MINI SHIFTER [address] [place] [address] PCP - General 06/16/22 Antelmo Davey MD [address] [facility] [place] [address] 09/25/[address] [place] [address] [facility] [address] Consulting General Surgery 09/25/19 Shanna June CNP [address] [place] [address] Referring Family Medicine 10/19/19 Agustin Valentino PA [address] [address] [place] [address] Referring Family Medicine 05/13/22 Packing Checker Relationship Specialty Start Date End Date Generic Provider, No [place] [address] PCP - General Pensions Retirement Plan Specialist 06/29/23 Packing Checker Relationship Specialty Start Date End Date Generic Provider, No [place] [address] PCP - General Pensions Retirement Plan Specialist 06/29/23 Packing Checker Relationship Specialty Start Date End Date Jaquan Morrow APRN.MINI SHIFTER [address] [place] [address] PCP - General 06/16/22 Antelmo Davey MD [address] [facility] [place] [address] 09/25/[address] [place] [address] [facility] [address] Consulting General Surgery 09/25/19 Shanna June, BETH [address] [place] [address] Referring Family Medicine 10/19/19 Agustin Valentino PA [address] [facility] [address] [place] [address] Referring Family Medicine 05/13/22 Packing Checker Relationship Specialty Start Date End Date Jaquan Morrow, COAL CUTTER.MINI SHIFTER [address] [place] [address] PCP - General 06/16/22 Antelmo Davey MD [address] [place] [address] 09/25/19 [place] [address] [place] [address] Consulting General Surgery 09/25/19 Slade Shanna, BETH [address] [place] [address] Referring Family Medicine 10/19/19 Agustin Valentino PA [address] [address] [place] [address] Referring Family Medicine 05/13/22 Packing Checker Relationship Specialty Start Date End Date Jaquan Morrow, COAL CUTTER.MINI SHIFTER [address] [place] [address] PCP - General 06/16/22 Antelmo Davey MD [address] [place] [address] 09/25/19 [place] [address] [place] [address] Consulting General Surgery 09/25/19 Shanna June, BETH [address] [place] [address] Referring Family Medicine 10/19/19 Agustin Valentino PA [address] [place] [address] Referring Family Medicine 05/13/22 Packing Checker Relationship Specialty Start Date End Date Jaquan Morrow, COAL CUTTER.MINI SHIFTER [address] [place] [address] PCP - General 06/16/22 Antelmo Davey MD [address] [place] [address] 09/25/19 [place] [address] [place] [address] Consulting General Surgery 09/25/19 Shanna June, BETH [address] [place] [address] Referring Family Medicine 10/19/19 Agustin Valentino PA [address] [place] [address] Referring Family Medicine 05/13/22 Packing Checker Relationship Specialty Start Date End Date Jaquan Morrow COAL CUTTER.MINI SHIFTER [address] [place] [address] PCP - General 06/16/22 Antelmo Davey MD [address] [place] [address] 09/25/19 [place] [address] [place] [address] Consulting General Surgery 09/25/19 Shanna June CNP [address] [place] [address] Referring Family Medicine 10/19/19 Agustin Valentino PA [address] [place] [address] Referring Family Medicine 05/13/22 Team Status: Inactive [...] July 17, 2023 End: July 17, 2023 Packing Checker Relationship Specialty Start Date End Date Jaquan Morrow, COAL CUTTER.MINI SHIFTER [address] [place] [address] PCP - General 06/16/22 Antelmo Davey MD [address] [place] [address] (Fax) 09/25/19 [place] [address] [place] [address] Consulting General Surgery 09/25/19 Shanna June CNP [address] [place] [address] Referring Family Medicine 10/19/19 Agustin Valentino PA [address] [place] [address] Referring Family Medicine 05/13/22 Team Status: Inactive Member Role Status Dates Thomas Calix MD Primary Care Provider Active Start: July 31, 2023 End: July 31, 2023 Jeramy Cunningham DO Emergency Provider Active Sta rt: July 31, 2023 End: July 31, 2023 Packing Checker Relationship Specialty Start Date End Date Thomas Calix MD [address] [place] [address] PCP - General Family Medicine 07/30/23 Antelmo Davey MD [address] [place] [address] 09/25/19 [place] [address] [place] [address] Consulting General Surgery 09/25/19 Shanna June CNP [address] [place] [address] Referring Family Medicine 10/19/19 Agustin Valentino PA [address] [place] [address] Referring Family Medicine 05/13/22 Packing Checker Relationship Specialty Start Date End Date Thomas Calix MD [address] [place] [address] PCP - General Family Medicine 07/30/23 Antelmo Davey MD [address] [place] [address] (Fax) 09/25/19 [place] [address] [place] [address] Consulting General Surgery 09/25/19 Shanna June CNP [address] [place] [address] Referring Family Medicine 10/19/19 Agustin Valentino PA [address] [address] Referring Family Medicine 05/13/22 Packing Checker Relationship Specialty Start Date End Date Thomas Calix MD [address] [place] [address] PCP - General Family Medicine 07/30/23 Antelmo Davey MD [address] [place] [address] (Fax) 09/25/19 [place] [address] [place] [address] Consulting General Surgery 09/25/19 Shanna June CNP [address] [place] [address] Referring Family Medicine 10/19/19 Agustin Valentino PA 112 [facility] [address] [place] [address] Referring Family Medicine 05/13/22 Packing Checker Relationship Specialty Start Date End Date Thomas Calix MD [address] [place] [address] PCP - General Family Medicine 07/30/23 Antelmo Davey MD [address] [place] [address] 09/25/19 [place] [address] [place] [address] Consulting General Surgery 09/25/19 Shanna June CNP [address] [place] [address] Referring Family Medicine 10/19/19 Agustin Valentino PA [address] [address] [place] [address] Referring Family Medicine 05/13/22 Packing Checker Relationship Specialty Start Date End Date Thomas Calix MD [address] [place] [address] PCP - General Family Medicine 07/30/23 Antelmo Davey MD [address] [place] [address] (Fax) 09/25/19 [place] [address] [place] [address] Consulting General Surgery 09/25/19 Shanna June, BETH [address] [place] [address] Referring Family Medicine 10/19/19 Agustin Valentino PA [address] [place] [address] Referring Family Medicine 05/13/22 Packing Checker Relationship Specialty Start Date End Date Thomas Calix MD [address] [place] [address] PCP - General Family Medicine 07/30/23 Antelmo Davey MD [address] [place] [address] (Fax) 09/25/19 [place] [address] [place] [address] Consulting General Surgery 09/25/19 Shanna June, BETH [address] [place] [address] Referring Family Medicine 10/19/19 Agustin Valentino PA 112 [facility] 150 [place] [address] Referring Family Medicine 05/13/22 Team Status: Inactive [...] or prosecute any alcohol or drug abuse patient.[facility] the event this information is protected by the Federal Confidentiality of Alcohol and Drug Abuse Patient Records regulations: The Federal rules restrict any use of the information to criminally investigate or prosecute any alcohol or drug abuse patient.[facility] HospitalIn the event this information is protected by the Federal Confidentiality of Alcohol and Drug Abuse Patient Records regulations: The Federal rules restrict any use of the information to criminally investigate or prosecute any alcohol or drug abuse patient.[facility]In the event this information is protected by the Federal Confidentiality of Alcohol and Drug Abuse Patient Records regulations: The Federal rules restrict any use of the information to criminally investigate or prosecute any alcohol or drug abuse patient.[facility] HospitalIn the event this information is protected by the Federal Confidentiality of Alcohol and Drug Abuse Patient Records regulations: The Federal rules restrict any use of the information to criminally investigate or prosecute any alcohol or drug abuse patient.[facility] HospitalIn the event this information is protected by the Federal Confidentiality of Alcohol and Drug Abuse Patient Records regulations: The Federal rules restrict any use of the information to criminally investigate or prosecute any alcohol or drug abuse patient.[facility] HospitalIn the event this information is protected by the Federal Confidentiality of Alcohol and Drug Abuse Patient Records regulations: The Federal rules restrict any use of the information to criminally investigate or prosecute any alcohol or drug abuse patient.[facility] HospitalIn the event this information is protected by the Federal Confidentiality of Alcohol and Drug Abuse Patient Records regulations: The Federal rules restrict any use of the information to criminally investigate or prosecute any alcohol or drug abuse patient.[facility] HospitalIn the event this information is protected by the Federal Confidentiality of Alcohol and Drug Abuse Patient Records regulations: The Federal rules restrict any use of the information to criminally investigate or prosecute any alcohol or drug abuse patient.[facility] HospitalIn the event this information is protected by the Federal Confidentiality of Alcohol and Drug Abuse Patient Records regulations: The Federal rules restrict any use of the information to criminally investigate or prosecute any alcohol or drug abuse patient.[facility] [facility]In the event this information is protected by the Federal Confidentiality of Alcohol and Drug Abuse Patient Records regulations: The Federal rules restrict any use of the information to criminally investigate or prosecute any alcohol or drug abuse patient.[facility]In the event this information is protected by the Federal Confidentiality of Alcohol and Drug Abuse Patient Records regulations: The Federal rules restrict any use of the information to criminally investigate or prosecute any alcohol or drug abuse patient.[facility]In the event this information is protected by the Federal Confidentiality of Alcohol and Drug Abuse Patient Records regulations: The Federal rules restrict any use of the information to criminally investigate or prosecute any alcohol or drug abuse patient.[facility]In the event this information is protected by the Federal Confidentiality of Alcohol and Drug Abuse Patient Records regulations: The Federal rules restrict any use of the information to criminally investigate or prosecute any alcohol or drug abuse patient.[facility]In the event this information is protected by the Federal Confidentiality of Alcohol and Drug Abuse Patient Records regulations: The Federal rules restrict any use of the information to criminally investigate or prosecute any alcohol or drug abuse patient.[facility]In the event this information is protected by the Federal Confidentiality of Alcohol and Drug Abuse Patient Records regulations: The Federal rules restrict any use of the information to criminally investigate or prosecute any alcohol or drug abuse patient.[facility]In the event this information is protected by the Federal Confidentiality of Alcohol and Drug Abuse Patient Records regulations: The Federal rules restrict any use of the information to criminally investigate or prosecute any alcohol or drug abuse patient.[facility]In the event this information is protected by the Federal Confidentiality of Alcohol and Drug Abuse Patient Records regulations: The Federal rules restrict any use of the information to criminally investigate or prosecute any alcohol or drug abuse patient.[facility]In the event this information is protected by the Federal Confidentiality of Alcohol and Drug Abuse Patient Records regulations: The Federal rules restrict any use of the information to criminally investigate or prosecute any alcohol or drug abuse patient.[facility]In the event this information is protected by the Federal Confidentiality of Alcohol and Drug Abuse Patient Records regulations: The Federal rules restrict any use of the information to criminally investigate or prosecute any alcohol or drug abuse patient.[facility]In the event this information is protected by the Federal Confidentiality of Alcohol and Drug Abuse Patient Records regulations: The Federal rules restrict any use of the information to criminally investigate or prosecute any alcohol or drug abuse patient.[facility]In the event this information is protected by the Federal Confidentiality of Alcohol and Drug Abuse Patient Records regulations: The Federal rules restrict any use of the information to criminally investigate or prosecute any alcohol or drug abuse patient.[facility]In the event this information is protected by the Federal Confidentiality of Alcohol and Drug Abuse Patient Records regulations: The Federal rules restrict any use of the information to criminally investigate or prosecute any alcohol or drug abuse patient.[facility] HospitalIn the event this information is protected by the Federal Confidentiality of Alcohol and Drug Abuse Patient Records regulations: The Federal rules restrict any use of the information to criminally investigate or prosecute any alcohol or drug abuse patient.[facility]In the event this information is protected by the Federal Confidentiality of Alcohol and Drug Abuse Patient Records regulations: The Federal rules restrict any use of the information to criminally investigate or prosecute any alcohol or drug abuse patient.[facility] HospitalIn the event this information is protected by the Federal Confidentiality of Alcohol and Drug Abuse Patient Records regulations: The Federal rules restrict any use of the information to criminally investigate or prosecute any alcohol or drug abuse patient.[facility] HospitalIn the event this information is protected by the Federal Confidentiality of Alcohol and Drug Abuse Patient Records regulations: The Federal rules restrict any use of the information to criminally investigate or prosecute any alcohol or drug abuse patient.[facility] HospitalIn the event this information is protected by the Federal Confidentiality of Alcohol and Drug Abuse Patient Records regulations: The Federal rules restrict any use of the information to criminally investigate or prosecute any alcohol or drug abuse patient.[facility] HospitalIn the event this information is protected by the Federal Confidentiality of Alcohol and Drug Abuse Patient Records regulations: The Federal rules restrict any use of the information to criminally investigate or prosecute any alcohol or drug abuse patient.[facility] HospitalIn the event this information is protected by the Federal Confidentiality of Alcohol and Drug Abuse Patient Records regulations: The Federal rules restrict any use of the information to criminally investigate or prosecute any alcohol or drug abuse patient.[facility] HospitalIn the event this information is protected by the Federal Confidentiality of Alcohol and Drug Abuse Patient Records regulations: The Federal rules restrict any use of the information to criminally investigate or prosecute any alcohol or drug abuse patient.[facility] HospitalIn the event this information is protected by the Federal Confidentiality of Alcohol and Drug Abuse Patient Records regulations: The Federal rules restrict any use of the information to criminally investigate or prosecute any alcohol or drug abuse patient.[facility] HospitalIn the event this information is protected by the Federal Confidentiality of Alcohol and Drug Abuse Patient Records regulations: The Federal rules restrict any use of the information to criminally investigate or prosecute any alcohol or drug abuse patient.[facility] HospitalIn the event this information is protected by the Federal Confidentiality of Alcohol and Drug Abuse Patient Records regulations: The Federal rules restrict any use of the information to criminally investigate or prosecute any alcohol or drug abuse patient.[facility] HospitalIn the event this information is protected by the Federal Confidentiality of Alcohol and Drug Abuse Patient Records regulations: The Federal rules restrict any use of the information to criminally investigate or prosecute any alcohol or drug abuse patient.[facility] HospitalIn the event this information is protected by the Federal Confidentiality of Alcohol and Drug Abuse Patient Records regulations: The Federal rules restrict any use of the information to criminally investigate or prosecute any alcohol or drug abuse patient.[facility] HospitalIn the event this information is protected by the Federal Confidentiality of Alcohol and Drug Abuse Patient Records regulations: The Federal rules restrict any use of the information to criminally investigate or prosecute any alcohol or drug abuse patient.[facility] HospitalIn the event this information is protected by the Federal Confidentiality of Alcohol and Drug Abuse Patient Records regulations: The Federal rules restrict any use of the information to criminally investigate or prosecute any alcohol or drug abuse patient.[facility] HospitalIn the event this information is protected by the Federal Confidentiality of Alcohol and Drug Abuse Patient Records regulations: The Federal rules restrict any use of the information to criminally investigate or prosecute any alcohol or drug abuse patient.[facility] HospitalIn the event this information is protected by the Federal Confidentiality of Alcohol and Drug Abuse Patient Records regulations: The Federal rules restrict any use of the information to criminally investigate or prosecute any alcohol or drug abuse patient.[facility] HospitalIn the event this information is protected by the Federal Confidentiality of Alcohol and Drug Abuse Patient Records regulations: The Federal rules restrict any use of the information to criminally investigate or prosecute any alcohol or drug abuse patient.[facility] HospitalIn the event this information is protected by the Federal Confidentiality of Alcohol and Drug Abuse Patient Records regulations: The Federal rules restrict any use of the information to criminally investigate or prosecute any alcohol or drug abuse patient.[facility] HospitalIn the event this information is protected by the Federal Confidentiality of Alcohol and Drug Abuse Patient Records regulations: The Federal rules restrict any use of the information to criminally investigate or prosecute any alcohol or drug abuse patient.[facility]In the event this information is protected by the Federal Confidentiality of Alcohol and Drug Abuse Patient Records regulations: The Federal rules restrict any use of the information to criminally investigate or prosecute any alcohol or drug abuse patient.[facility] HospitalIn the event this information is protected by the Federal Confidentiality of Alcohol and Drug Abuse Patient Records regulations: The Federal rules restrict any use of the information to criminally investigate or prosecute any alcohol or drug abuse patient.[facility] HospitalIn the event this information is protected by the Federal Confidentiality of Alcohol and Drug Abuse Patient Records regulations: The Federal rules restrict any use of the information to criminally investigate or prosecute any alcohol or drug abuse patient.[facility] HospitalIn the event this information is protected by the Federal Confidentiality of Alcohol and Drug Abuse Patient Records regulations: The Federal rules restrict any use of the information to criminally investigate or prosecute any alcohol or drug abuse patient.[facility] HospitalIn the event this information is protected by the Federal Confidentiality of Alcohol and Drug Abuse Patient Records regulations: The Federal rules restrict any use of the information to criminally investigate or prosecute any alcohol or drug abuse patient.[facility] HospitalIn the event this information is protected by the Federal Confidentiality of Alcohol and Drug Abuse Patient Records regulations: The Federal rules restrict any use of the information to criminally investigate or prosecute any alcohol or drug abuse patient.[facility]In the event this information is protected by the Federal Confidentiality of Alcohol and Drug Abuse Patient Records regulations: The Federal rules restrict any use of the information to criminally investigate or prosecute any alcohol or drug abuse patient.[facility] HospitalIn the event this information is protected by the Federal Confidentiality of Alcohol and Drug Abuse Patient Records regulations: The Federal rules restrict any use of the information to criminally investigate or prosecute any alcohol or drug abuse patient.[facility] HospitalIn the event this information is protected by the Federal Confidentiality of Alcohol and Drug Abuse Patient Records regulations: The Federal rules restrict any use of the information to criminally investigate or prosecute any alcohol or drug abuse patient.[facility] HospitalIn the event this information is protected by the Federal Confidentiality of Alcohol and Drug Abuse Patient Records regulations: The Federal rules restrict any use of the information to criminally investigate or prosecute any alcohol or drug abuse patient.[facility]In the event this information is protected by the Federal Confidentiality of Alcohol and Drug Abuse Patient Records regulations: The Federal rules restrict any use of the information to criminally investigate or prosecute any alcohol or drug abuse patient.[facility] HospitalIn the event this information is protected by the Federal Confidentiality of Alcohol and Drug Abuse Patient Records regulations: The Federal rules restrict any use of the information to criminally investigate or prosecute any alcohol or drug abuse patient.[facility] HospitalIn the event this information is protected by the Federal Confidentiality of Alcohol and Drug Abuse Patient Records regulations: The Federal rules restrict any use of the information to criminally investigate or prosecute any alcohol or drug abuse patient.[facility] HospitalIn the event this information is protected by the Federal Confidentiality of Alcohol and Drug Abuse Patient Records regulations: The Federal rules restrict any use of the information to criminally investigate or prosecute any alcohol or drug abuse patient.[facility] HospitalIn the event this information is protected by the Federal Confidentiality of Alcohol and Drug Abuse Patient Records regulations: The Federal rules restrict any use of the information to criminally investigate or prosecute any alcohol or drug abuse patient.[facility] HospitalIn the event this information is protected by the Federal Confidentiality of Alcohol and Drug Abuse Patient Records regulations: The Federal rules restrict any use of the information to criminally investigate or prosecute any alcohol or drug abuse patient.[facility] HospitalIn the event this information is protected by the Federal Confidentiality of Alcohol and Drug Abuse Patient Records regulations: The Federal rules restrict any use of the information to criminally investigate or prosecute any alcohol or drug abuse patient.[facility] HospitalIn the event this information is protected by the Federal Confidentiality of Alcohol and Drug Abuse Patient Records regulations: The Federal rules restrict any use of the information to criminally investigate or prosecute any alcohol or drug abuse patient.[facility] HospitalIn the event this information is protected by the Federal Confidentiality of Alcohol and Drug Abuse Patient Records regulations: The Federal rules restrict any use of the information to criminally investigate or prosecute any alcohol or drug abuse patient.[facility] HospitalIn the event this information is protected by the Federal Confidentiality of Alcohol and Drug Abuse Patient Records regulations: The Federal rules restrict any use of the information to criminally investigate or prosecute any alcohol or drug abuse patient.[facility]In the event this information is protected by the Federal Confidentiality of Alcohol and Drug Abuse Patient Records regulations: The Federal rules restrict any use of the information to criminally investigate or prosecute any alcohol or drug abuse patient.[facility]In the event this information is protected by the Federal Confidentiality of Alcohol and Drug Abuse Patient Records regulations: The Federal rules restrict any use of the information to criminally investigate or prosecute any alcohol or drug abuse patient.[facility] HospitalIn the event this information is protected by the Federal Confidentiality of Alcohol and Drug Abuse Patient Records regulations: The Federal rules restrict any use of the information to criminally investigate or prosecute any alcohol or drug abuse patient.[facility] HospitalIn the event this information is protected by the Federal Confidentiality of Alcohol and Drug Abuse Patient Records regulations: The Federal rules restrict any use of the information to criminally investigate or prosecute any alcohol or drug abuse patient.[facility] HospitalIn the event this information is protected by the Federal Confidentiality of Alcohol and Drug Abuse Patient Records regulations: The Federal rules restrict any use of the information to criminally investigate or prosecute any alcohol or drug abuse patient.[facility]In the event this information is protected by the Federal Confidentiality of Alcohol and Drug Abuse Patient Records regulations: The Federal rules restrict any use of the information to criminally investigate or prosecute any alcohol or drug abuse patient.[facility]In the event this information is protected by the Federal Confidentiality of Alcohol and Drug Abuse Patient Records regulations: The Federal rules restrict any use of the information to criminally investigate or prosecute any alcohol or drug abuse patient.[facility]In the event this information is protected by the Federal Confidentiality of Alcohol and Drug Abuse Patient Records regulations: The Federal rules restrict any use of the information to criminally investigate or prosecute any alcohol or drug abuse patient.[facility]In the event this information is protected by the Federal Confidentiality of Alcohol and Drug Abuse Patient Records regulations: The Federal rules restrict any use of the information to criminally investigate or prosecute any alcohol or drug abuse patient.[facility] HospitalIn the event this information is protected by the Federal Confidentiality of Alcohol and Drug Abuse Patient Records regulations: The Federal rules restrict any use of the information to criminally investigate or prosecute any alcohol or drug abuse patient.[facility]In the event this information is protected by the Federal Confidentiality of Alcohol and Drug Abuse Patient Records regulations: The Federal rules restrict any use of the information to criminally investigate or prosecute any alcohol or drug abuse patient.[facility]In the event this information is protected by the Federal Confidentiality of Alcohol and Drug Abuse Patient Records regulations: The Federal rules restrict any use of the information to criminally investigate or prosecute any alcohol or drug abuse patient.[facility]In the event this information is protected by the Federal Confidentiality of Alcohol and Drug Abuse Patient Records regulations: The Federal rules restrict any use of the information to criminally investigate or prosecute any alcohol or drug abuse patient.[facility]In the event this information is protected by the Federal Confidentiality of Alcohol and Drug Abuse Patient Records regulations: The Federal rules restrict any use of the information to criminally investigate or prosecute any alcohol or drug abuse patient.[facility]In the event this information is protected by the Federal Confidentiality of Alcohol and Drug Abuse Patient Records regulations: The Federal rules restrict any use of the information to criminally investigate or prosecute any alcohol or drug abuse patient.[facility] HospitalIn the event this information is protected by the Federal Confidentiality of Alcohol and Drug Abuse Patient Records regulations: The Federal rules restrict any use of the information to criminally investigate or prosecute any alcohol or drug abuse patient.[facility]In the event this information is protected by the Federal Confidentiality of Alcohol and Drug Abuse Patient Records regulations: The Federal rules restrict any use of the information to criminally investigate or prosecute any alcohol or drug abuse patient.[facility]In the event this information is protected by the Federal Confidentiality of Alcohol and Drug Abuse Patient Records regulations: The Federal rules restrict any use of the information to criminally investigate or prosecute any alcohol or drug abuse patient.[facility]In the event this information is protected by the Federal Confidentiality of Alcohol and Drug Abuse Patient Records regulations: The Federal rules restrict any use of the information to criminally investigate or prosecute any alcohol or drug abuse patient.[facility]In the event this information is protected by the Federal Confidentiality of Alcohol and Drug Abuse Patient Records regulations: The Federal rules restrict any use of the information to criminally investigate or prosecute any alcohol or drug abuse patient.[facility]In the event this information is protected by the Federal Confidentiality of Alcohol and Drug Abuse Patient Records regulations: The Federal rules restrict any use of the information to criminally investigate or prosecute any alcohol or drug abuse patient.[facility]In the event this information is protected by the Federal Confidentiality of Alcohol and Drug Abuse Patient Records regulations: The Federal rules restrict any use of the information to criminally investigate or prosecute any alcohol or drug abuse patient.[facility]In the event this information is protected by the Federal Confidentiality of Alcohol and Drug Abuse Patient Records regulations: The Federal rules restrict any use of the information to criminally investigate or prosecute any alcohol or drug abuse patient.[facility]In the event this information is protected by the Federal Confidentiality of Alcohol and Drug Abuse Patient Records regulations: The Federal rules restrict any use of the information to criminally investigate or prosecute any alcohol or drug abuse patient.[facility]In the event this information is protected by the Federal Confidentiality of Alcohol and Drug Abuse Patient Records regulations: The Federal rules restrict any use of the information to criminally investigate or prosecute any alcohol or drug abuse patient.[facility]In the event this information is protected by the Federal Confidentiality of Alcohol and Drug Abuse Patient Records regulations: The Federal rules restrict any use of the information to criminally investigate or prosecute any alcohol or drug abuse patient.[facility]In the event this information is protected by the Federal Confidentiality of Alcohol and Drug Abuse Patient Records regulations: The Federal rules restrict any use of the information to criminally investigate or prosecute any alcohol or drug abuse patient.[facility]In the event this information is protected by the Federal Confidentiality of Alcohol and Drug Abuse Patient Records regulations: The Federal rules restrict any use of the information to criminally investigate or prosecute any alcohol or drug abuse patient.[facility]In the event this information is protected by the Federal Confidentiality of Alcohol and Drug Abuse Patient Records regulations: The Federal rules restrict any use of the information to criminally investigate or prosecute any alcohol or drug abuse patient.[facility]In the event this information is protected by the Federal Confidentiality of Alcohol and Drug Abuse Patient Records regulations: The Federal rules restrict any use of the information to criminally investigate or prosecute any alcohol or drug abuse patient.[facility]In the event this information is protected by the Federal Confidentiality of Alcohol and Drug Abuse Patient Records regulations: The Federal rules restrict any use of the information to criminally investigate or prosecute any alcohol or drug abuse patient.[facility]In the event this information is protected by the Federal Confidentiality of Alcohol and Drug Abuse Patient Records regulations: The Federal rules restrict any use of the information to criminally investigate or prosecute any alcohol or drug abuse patient.[facility]In the event this information is protected by the Federal Confidentiality of Alcohol and Drug Abuse Patient Records regulations: The Federal rules restrict any use of the information to criminally investigate or prosecute any alcohol or drug abuse patient.[facility]In the event this information is protected by the Federal Confidentiality of Alcohol and Drug Abuse Patient Records regulations: The Federal rules restrict any use of the information to criminally investigate or prosecute any alcohol or drug abuse patient.[facility] HospitalIn the event this information is protected by the Federal Confidentiality of Alcohol and Drug Abuse Patient Records regulations: The Federal rules restrict any use of the information to criminally investigate or prosecute any alcohol or drug abuse patient.[facility] HospitalIn the event this information is protected by the Federal Confidentiality of Alcohol and Drug Abuse Patient Records regulations: The Federal rules restrict any use of the information to criminally investigate or prosecute any alcohol or drug abuse patient.[facility] HospitalIn the event this information is protected by the Federal Confidentiality of Alcohol and Drug Abuse Patient Records regulations: The Federal rules restrict any use of the information to criminally investigate or prosecute any alcohol or drug abuse patient.[facility] HospitalIn the event this information is protected by the Federal Confidentiality of Alcohol and Drug Abuse Patient Records regulations: The Federal rules restrict any use of the information to criminally investigate or prosecute any alcohol or drug abuse patient.[facility] HospitalIn the event this information is protected by the Federal Confidentiality of Alcohol and Drug Abuse Patient Records regulations: The Federal rules restrict any use of the information to criminally investigate or prosecute any alcohol or drug abuse patient.[facility] HospitalIn the event this information is protected by the Federal Confidentiality of Alcohol and Drug Abuse Patient Records regulations: The Federal rules restrict any use of the information to criminally investigate or prosecute any alcohol or drug abuse patient.[facility] HospitalIn the event this information is protected by the Federal Confidentiality of Alcohol and Drug Abuse Patient Records regulations: The Federal rules restrict any use of the information to criminally investigate or prosecute any alcohol or drug abuse patient.[facility] HospitalIn the event this information is protected by the Federal Confidentiality of Alcohol and Drug Abuse Patient Records regulations: The Federal rules restrict any use of the information to criminally investigate or prosecute any alcohol or drug abuse patient.[facility] HospitalIn the event this information is protected by the Federal Confidentiality of Alcohol and Drug Abuse Patient Records regulations: The Federal rules restrict any use of the information to criminally investigate or prosecute any alcohol or drug abuse patient.[facility] HospitalIn the event this information is protected by the Federal Confidentiality of Alcohol and Drug Abuse Patient Records regulations: The Federal rules restrict any use of the information to criminally investigate or prosecute any alcohol or drug abuse patient.[facility] HospitalIn the event this information is protected by the Federal Confidentiality of Alcohol and Drug Abuse Patient Records regulations: The Federal rules restrict any use of the information to criminally investigate or prosecute any alcohol or drug abuse patient.[facility] HospitalIn the event this information is protected by the Federal Confidentiality of Alcohol and Drug Abuse Patient Records regulations: The Federal rules restrict any use of the information to criminally investigate or prosecute any alcohol or drug abuse patient.[facility] HospitalIn the event this information is protected by the Federal Confidentiality of Alcohol and Drug Abuse Patient Records regulations: The Federal rules restrict any use of the information to criminally investigate or prosecute any alcohol or drug abuse patient.[facility] HospitalIn the event this information is protected by the Federal Confidentiality of Alcohol and Drug Abuse Patient Records regulations: The Federal rules restrict any use of the information to criminally investigate or prosecute any alcohol or drug abuse patient.[facility] HospitalIn the event this information is protected by the Federal Confidentiality of Alcohol and Drug Abuse Patient Records regulations: The Federal rules restrict any use of the information to criminally investigate or prosecute any alcohol or drug abuse patient.[facility] HospitalIn the event this information is protected by the Federal Confidentiality of Alcohol and Drug Abuse Patient Records regulations: The Federal rules restrict any use of the information to criminally investigate or prosecute any alcohol or drug abuse patient.[facility] HospitalIn the event this information is protected by the Federal Confidentiality of Alcohol and Drug Abuse Patient Records regulations: The Federal rules restrict any use of the information to criminally investigate or prosecute any alcohol or drug abuse patient.[facility] HospitalIn the event this information is protected by the Federal Confidentiality of Alcohol and Drug Abuse Patient Records regulations: The Federal rules restrict any use of the information to criminally investigate or prosecute any alcohol or drug abuse patient.[facility] HospitalIn the event this information is protected by the Federal Confidentiality of Alcohol and Drug Abuse Patient Records regulations: The Federal rules restrict any use of the information to criminally investigate or prosecute any alcohol or drug abuse patient.[facility] HospitalIn the event this information is protected by the Federal Confidentiality of Alcohol and Drug Abuse Patient Records regulations: The Federal rules restrict any use of the information to criminally investigate or prosecute any alcohol or drug abuse patient.[facility] HospitalIn the event this information is protected by the Federal Confidentiality of Alcohol and Drug Abuse Patient Records regulations: The Federal rules restrict any use of the information to criminally investigate or prosecute any alcohol or drug abuse patient.[facility] HospitalIn the event this information is protected by the Federal Confidentiality of Alcohol and Drug Abuse Patient Records regulations: The Federal rules restrict any use of the information to criminally investigate or prosecute any alcohol or drug abuse patient.[facility] HospitalIn the event this information is protected by the Federal Confidentiality of Alcohol and Drug Abuse Patient Records regulations: The Federal rules restrict any use of the information to criminally investigate or prosecute any alcohol or drug abuse patient.[facility] Ordered Prescriptions (unrec ognized section and [...] BE BASED ON THE PRIMARY CLINICAL RECORDS. [facility]. provides no warranty or guarantee of the accuracy or completeness of information in this document.
[2023-08-15] MEDS: METOCLOPRAMIDE HCL 10 MG TABLET PO (17:07)
[2023-08-15] MEDS: OXYCODONE HCL 5 MG TABLET PO (17:07)
[2023-08-15] MEDS: LACTATED RINGER'S SOLUTION 1,000 ML 100 ML IV (17:54)
[2023-08-15 19:42] VITALS: BP 114/78; PULSE 76; TEMP 36.5; O2SAT 97
[2023-08-15 20:20] VITALS: O2SAT 97
[2023-08-15] MEDS: BUSPIRONE HCL 10 MG TABLET PO (21:13)
[2023-08-15] MEDS: MIRTAZAPINE 15 MG TABLET 30 MG PO (21:14)
[2023-08-15] MEDS: METHOCARBAMOL 500 MG TABLET 750 MG PO (21:14)
[2023-08-15] MEDS: TOPIRAMATE 100 MG TABLET PO (21:14)
[2023-08-16 03:25] VITALS: BP 116/80; PULSE 66; TEMP 36.6; O2SAT 98
[2023-08-16] MEDS: LACTATED RINGER'S SOLUTION 1,000 ML 100 ML IV ×2 (03:28→14:06)
[2023-08-16] MEDS: OXYCODONE HCL 5 MG TABLET PO ×3 (03:30→15:54)
[2023-08-16 04:49] LABS: Basophils Percent Auto 1.1 % (0.2-2.0); Eosinophils Absolute Auto 0.1 10^3/uL (0.0-0.7); Eosinophils Percent Auto 3.2 % (0.9-7.0); Hematocrit 29.5 % (36.0-48.0); Hemoglobin 9.4 g/dL (12.0-16.0); Immature Granulocytes Abs Auto 0.01 10^3/uL (0.00-0.03); Immature Granulocytes Pct Auto 0.3 % (0.0-0.5); Lymphocytes Absolute Auto 1.7 10^3/uL (1.2-3.8); Lymphocytes Percent Auto 45.5 % (20.5-60.0); Mean Corpuscular HGB Conc 31.9 g/dL (29.9-35.2); Mean Corpuscular Hemoglobin 28.7 pg (26.7-34.0); Mean Corpuscular Volume 89.9 fL (81.0-99.0); Mean Platelet Volume 10.6 fL (9.5-13.5); Monocytes Absolute Auto 0.3 10^3/uL (0.3-0.8); Monocytes Percent Auto 8.8 % (1.7-12.0); Neutrophils Absolute Auto 1.6 10^3/uL (1.4-6.5); Neutrophils Percent Auto 41.1 % (43.0-75.0); Platelet Count 199 10^3/uL (150-450); Red Blood Count 3.28 10^6/uL (4.20-5.40); Red Cell Distribution Width 12.7 % (11.0-15.0); White Blood Count 3.8 10^3/uL (4.0-11.0)
[2023-08-16 05:12] LABS: Alanine Aminotransferase 23 U/L (14-59); Albumin Level 2.7 g/dL (3.4-5.0); Alkaline Phosphatase 54 U/L (46-116); Anion Gap 11.5; Aspartate Amino Transferase 23 U/L (15-37); BUN Creatinine Ratio 10.8; Bilirubin Total 0.3 mg/dL (0.2-1.0); Carbon Dioxide 24.2 mmol/L (21.0-32.0); Chloride 108 mmol/L (98-107); Estimated GFR (African America >60 (>=60); Estimated GFR (Non-African Ame >60 (>=60); Globulin 2.8 g/dL; Glucose 82 mg/dL (74-106); Potassium 3.7 mmol/L (3.5-5.1); Sodium 140 mmol/L (136-145); Total Protein 5.5 g/dL (6.4-8.2)
[2023-08-16] MEDS: LIOTHYRONINE SODIUM 5 MCG TABLET PO (05:54)
[2023-08-16] MEDS: BUSPIRONE HCL 10 MG TABLET PO ×2 (05:54→14:05)
[2023-08-16] MEDS: METHOCARBAMOL 500 MG TABLET 750 MG PO ×2 (05:54→14:05)
[2023-08-16] MEDS: LEVOTHYROXINE SODIUM 75 MCG TABLET PO (05:54)
--- NOTE | 2023-08-16 07:36 | P.HP_ITS ---
HPI H&P: HPI History of Present Illness Chief complaint: NAUSEA AND PAIN, Nausea/Vomiting Narrative: Patient presented to the emergency room with increasing nausea vomiting and abdominal pain. I discussed with her earlier in the morning before she gets too far behind on fluids, it may be best to go to the emergency room. Evaluation in the emergency room for laboratory results all unremarkable. When I saw patient up on the medical surgical floor this morning, states abdominal pain persisting but may be slightly better, she also does describe some UTI type symptoms. Discussed testing that she has had at outside facilities, has not had a small bowel series in quite some time. Opioid HPI Opioid Management Most Recent Pain and Opioid Data: Last Pain Scale 4 08/16/23 05:58 Last Pain Assessment 08/16/23 05:58 Last MAR Pain Assessment 08/16/23 03:30 Last ORT Total Score 2 08/15/23 16:20 Last ORT Risk Category Low Risk 08/15/23 16:20 Review of Systems ROS Constitutional Reports: fatigue; Denies: fever, chills or change in weight PFSH PFSH Medical History (Updated 08/15/23 @ 15:32 by Reji Damon MD) Abdominal pain ?R10.9 - Unspecified abdominal pain (ICD-10) Acute abdomen ?R10.0 - Acute abdomen (ICD-10) Intractable nausea and vomiting ?R11.2 - Nausea with vomiting, unspecified (ICD-10) Intractable abdominal pain ?R10.9 - Unspecified abdominal pain (ICD-10) Depression ?F32.A - Depression, unspecified (ICD-10) Asthma ?J45.909 - Unspecified asthma, uncomplicated (ICD-10) Dyspareunia Pelvic pain ?R10.2 - Pelvic and perineal pain (ICD-10) Ovarian cyst ?N83.209 - Unspecified ovarian cyst, unspecified side (ICD-10) PONV (postoperative nausea and vomiting) ?R11.2 - Nausea with vomiting, unspecified (ICD-10) ?Z98.890 - Other specified postprocedural states (ICD-10) PCOS (polycystic ovarian syndrome) ?E28.2 - Polycystic ovarian syndrome (ICD-10) Hypothyroidism (acquired) ?E03.9 - Hypothyroidism, unspecified (ICD-10) Anxiety ?F41.9 - Anxiety disorder, unspecified (ICD-10) GERD (gastroesophageal reflux disease) ?K21.9 - Gastro-esophageal reflux disease without esophagitis (ICD-10) Sleep apnea ?G47.30 - Sleep apnea, unspecified (ICD-10) Anemia ?D64.9 - Anemia, unspecified (ICD-10) Fibromyalgia ?M79.7 - Fibromyalgia (ICD-10) Syncope (07/07/13) ?R55 - Syncope and collapse (ICD-10) Shingles ?B02.9 - Zoster without complications (ICD-10) Headache ?R51.9 - Headache, unspecified (ICD-10) Migraine ?G43.909 - Migraine, unspecified, not intractable, without status migrainosus (ICD-10) Mechanical ileus (01/31/20) ?K56.609 - Unspecified intestinal obstruction, unspecified as to partial versus complete obstruction (ICD-10) COVID-19 (~02/2020) ?U07.1 - COVID-19 (ICD-10) Kidney stones ?N20.0 - Calculus of kidney (ICD-10) Surgical History (Updated 06/14/23 @ 16:55 by Marsha Du) S/P percutaneous endoscopic gastrostomy (PEG) tube placement ?Z93.1 - Gastrostomy status (ICD-10) 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 - Celiac artery compression syndrome (ICD-10) H/O shoulder surgery (2022) ?Z98.890 - Other specified postprocedural states (ICD-10) History of hip surgery ?Z98.890 - Other specified postprocedural states (ICD-10) S/P right knee arthroscopy ?Z98.890 - Other specified postprocedural states (ICD-10) S/P left knee arthroscopy ?Z98.890 - Other specified postprocedural states (ICD-10) Hx of tonsillectomy ?Z90.89 - Acquired absence of other organs (ICD-10) History of thoracic surgery (~2021) ?Z98.890 - Other specified postprocedural states (ICD-10) History of esophagogastroduodenoscopy (EGD) (10/04/13) ?Z98.890 - Other specified postprocedural states (ICD-10) History of cholecystectomy (10/06/13) ?Z90.49 - Acquired absence of other specified parts of digestive tract (ICD- 10) Delivery by section (~2016) Delivery by section (01/17/18) H/O colonoscopy (~2018) ?Z98.890 - Other specified postprocedural states (ICD-10) S/P right knee arthroscopy (07/21/18) ?Z98.890 - Other specified postprocedural states (ICD-10) Delivery by section (06/19/19) History of appendectomy (09/25/19) ?Z90.49 - Acquired absence of other specified parts of digestive tract (ICD- 10) H/O laparoscopy (11/10/19) ?Z98.890 - Other specified postprocedural states (ICD-10) History of liver biopsy (~04/2020) ?Z98.890 - Other specified postprocedural states (ICD-10) H/O laparoscopy (07/18/20) ?Z98.890 - Other specified postprocedural states (ICD-10) H/O arthroscopy of right knee (08/07/20) ?Z98.890 - Other specified postprocedural states (ICD-10) S/P laparoscopic sleeve gastrectomy (09/03/20) ?Z98.84 - Bariatric surgery status (ICD-10) H/O: hysterectomy (11/12/20) ?Z90.710 - Acquired absence of both cervix and uterus (ICD-10) History of hernia repair (03/20/21) ?Z98.890 - Other specified postprocedural states (ICD-10) ?Z87.19 - Personal history of other diseases of the digestive system (ICD-10) Family History (Updated 06/14/23 @ 16:56 by Marsha Du) Other Family history of cancer Family history of diabetes mellitus Family history of hypertension Family history of myocardial infarction PONV (postoperative nausea and vomiting) Social History (Updated 06/14/23 @ 16:57 by Marsha Du) Within the past year, how often did you have a drink containing alcohol: never Score interpretation: A score less than 3 is consistent with normal alcohol consumption. Smoking status: Never smoker Non-prescribed substance use: denies use Highest level of school completed/degree received: Master's degree Are you now , , , , never or living with a partner: In a typical week, how many times do you talk on the telephone with family, friends, or neighbors: 3 or more times per week How often do you get together with friends or relatives: twice per week How often do you attend temple or confucianism services: 4 or more times per year Do you belong to any clubs or organizations such as temple groups unions, [employer] or athletic groups, or school groups: no Total score: 3 Score interpretation: A score of greater than or equal to 2 indicates the lowest level of social isolation. Little interest or pleasure in doing things: not at all Feeling down, depressed, or hopeless: several days Feel stressed/tense/nervous/anxious/difficulty sleeping: to some extent Do you think of yourself as: straight/heterosexual Gender Identity: female Meds Home Medications and Allergies Home Medications ?Medication ?Instructions ?Recorded ?Confirmed ?Type hydroxyzine HCl 25 mg tablet 25 mg PO BID PRN anxiety 09/17/22 08/15/23 History liothyronine 5 mcg tablet 5 mcg PO QDAY 09/17/22 08/15/23 History topiramate 100 mg tablet 100 mg PO BID 09/17/22 08/15/23 History buspirone 10 mg tablet 10 mg PO TID 06/14/23 08/15/23 History linaclotide 290 mcg capsule 290 mcg PO DAILY 06/14/23 08/15/23 History (Linzess) methocarbamol 750 mg tablet 750 mg PO TID 06/14/23 08/15/23 History metoclopramide HCl 10 mg tablet 10 mg PO AC 06/14/23 08/15/23 History albuterol sulfate 90 mcg/actuation 2 puff inhalation Q6H PRN 06/15/23 08/15/23 History aerosol inhaler shortness of breath or wheezing escitalopram oxalate 20 mg tablet 20 mg PO DAILY 06/15/23 08/15/23 History levothyroxine 75 mcg tablet 75 mcg PO .ACB 06/15/23 08/15/23 History mirtazapine 30 mg tablet 30 mg PO .HS 06/15/23 08/15/23 History pantoprazole 40 mg tablet,delayed 40 mg PO DAILY 06/15/23 08/15/23 History release Nutrin 45 ml feeding tube Q1H #3,000 mL 06/16/23 08/15/23 Rx prochlorperazine maleate 10 mg 10 mg PO Q6H PRN nausea and 06/16/23 08/15/23 Rx tablet (Compazine) vomiting #60 tabs tramadol 50 mg tablet 50 mg PO Q6H PRN pain #28 tabs 06/16/23 08/15/23 Rx acetaminophen 325 mg tablet (Pain 650 mg PO Q4H PRN pain 06/24/23 08/15/23 History Relief (acetaminophen)) ondansetron 4 mg disintegrating 4 mg PO Q6H PRN nausea and 07/08/23 08/15/23 Rx tablet vomiting #20 tabs Allergies Allergy/AdvReac Type Severity Reaction Status Date / Time adhesive Allergy Rash Verified 08/15/23 13:11 codeine Allergy Vomiting Verified 08/15/23 13:11 NSAIDS (Non-Steroidal Allergy intolerance Verified 08/15/23 13:11 Anti-Inflamma Exam Constitutional Vital Signs, click to edit/add: Last Vital Signs Temp 97.8 F 08/16/23 03:25 Pulse 66 08/16/23 03:25 Resp 18 08/16/23 03:25 BP 116/80 08/16/23 03:25 Pulse Ox 98 08/16/23 03:25 O2 Del Method Room Air 08/16/23 03:25 Documenting provider has reviewed patient's vital signs: yes Common normals: apparent distress (She is more comfortable today from a pain standpoint) Exam limitations: no altered mental status and no behavioral limitations General appearance: not comfortable HENMT Common normals: oral mucous membranes not moist (Somewhat dry mucous membranes) Chest Common normals: inspection of chest normal and palpation of chest normal Respiratory Common normals: normal respiratory effort and no retractions Cardio Common normals: regular rate, regular rhythm, S1 normal heart sound and no murmurs GI Common normals: negative for Normal to inspection, nondistended, normoactive bowel sounds present (Feeding tube left upper abdomen.) and tender (Improved) Palpation: tender (Tenderness more left-sided); no rebound tenderness present (Tenderness improved) Results Labs Labs: Short CBC 08/15/23 08/16/23 Range/Units 13:58 04:37 WBC 4.3 3.8 L (4.0-11.0) 10^3/uL Hgb 10.7 L 9.4 L (12.0-16.0) g/dL Hct 32.4 L 29.5 L (36.0-48.0) % Plt Count 238 199 (150-450) 10^3/uL BMP 08/15/23 08/16/23 13:58 04:37 Sodium 142 140 Potassium 3.5 3.7 Chloride 106 108 H Carbon Dioxide 25.4 24.2 BUN 9.0 8.0 Creatinine 0.85 0.74 Glucose 92 82 Calcium 8.0 L 8.0 L Liver Function 08/15/23 08/16/23 Range/Units 13:58 04:37 Total Bilirubin 0.4 0.3 (0.2-1.0) mg/dL Direct Bilirubin 0.1 (0.0-0.2) mg/dL AST 35 23 (15-37) U/L ALT 31 23 (14-59) U/L Alkaline Phosphatase 67 54 (46-116) U/L Albumin 3.5 2.7 L (3.4-5.0) g/dL Urine 08/15/23 Range/Units 13:54 Urine Color Lt. yellow (YELLOW) Urine Clarity Clear (CLEAR) Urine pH 7.0 (5.0-9.0) Ur Specific Rake 1.015 (1.005-1.025) Urine Protein Negative (NEG/TRACE) mg/dL Urine Glucose (UA) Negative (NEGATIVE) mg/dL Assessment and Plan Assessment and Plan (1) Nausea and vomiting: (2) Flank pain: (3) Acute abdomen: (4) GERD (gastroesophageal reflux disease): Plan Mild neutropenia, anemia, moderate protein calorie malnutrition secondary to hyperemesis-check acute abdominal series, check JG tube small bowel follow- through series. UTI symptoms-check UA, history of UTIs in the past. Moderate protein calorie malnutrition-diet supplement, consider restarting TPN tonight. Neutropenia-likely secondary to the above-continue to monitor Hypothyroidism-levels recently obtained were normal continue with home medication GERD-IV Protonix Depression symptoms-continue home medications Inpatient status: Initial workup so far unremarkable, will maintain observation status, if small bowel follow-through series shows a significant, likely next treatment would then span 2 midnights will change to inpatient status
[2023-08-16 07:47] VITALS: BP 108/70; PULSE 63; TEMP 36.9; O2SAT 98
[2023-08-16] MEDS: TOPIRAMATE 100 MG TABLET PO (08:51)
[2023-08-16] MEDS: PANTOPRAZOLE SODIUM 40 MG VIAL IV (08:51)
[2023-08-16] MEDS: ESCITALOPRAM 10 MG TABLET 20 MG PO (08:51)
[2023-08-16] MEDS: ENOXAPARIN SODIUM 40 MG/0.4 ML SYRINGE SUBQ (08:51)
[2023-08-16] MEDS: METOCLOPRAMIDE HCL 10 MG TABLET PO ×2 (08:51→15:54)
--- NOTE | 2023-08-16 11:02 | XR_ITS ---
The [address] [address] Patient Name: JUAN KONG MRN: [id number] date: 1990 Sex: F Assigned Patient Location: [place] Current Patient Location: [place] Accession/Order Number: [id number] Exam Date: 08/16/2023 10:55 Report Date: 08/16/2023 11:40 At the request of: BRITT CALIX Procedure: XR abdomen min 2V EXAMINATION: XR abdomen min 2V HISTORY: abd pain , right upper quadrant pain COMPARISON: XR abdomen 06/24/2023, CT abdomen pelvis 07/08/2023 FINDINGS: BOWEL GAS PATTERN: PEG tube projecting over left upper quadrant, unchanged. Normal bowel gas pattern. FREE AIR: None. CALCIFICATIONS: No convincing kidney stones and no stones seen within kidneys on recent CT study. Stable pelvic calcifications favoring phleboliths. BONES: No fracture or visible bone lesion. OTHER: Negative. XR/XR abdomen min 2V IMPRESSION: 1. Unremarkable PEG tube and bowel gas pattern. No suspicious findings. Electronically authenticated by: ALVERTO PHAM Date: 08/16/2023 11:40
[2023-08-16 11:17] LABS: Bilirubin Urine NEGATIVE (NEGATIVE); Blood Urine NEGATIVE (NEGATIVE); Clarity Urine CLEAR (CLEAR); Color Urine LT. YELLOW (YELLOW); Glucose Urine UA NEGATIVE (NEGATIVE); Ketones Urine NEGATIVE (NEGATIVE); Leukocyte Esterase Urine NEGATIVE (NEGATIVE); Nitrite Urine NEGATIVE (NEGATIVE); Protein Urine NEGATIVE (NEG/TRACE); Urobilinogen Urine 0.2 EU/dL (0.2-1.0)
[2023-08-16 11:36] LABS: WBC Urine NONE SEEN #/HPF (NONE SEEN)
[2023-08-16 11:37] LABS: Bacteria Urine SMALL #/HPF (NONE SEEN); Cast Seen? NONE SEEN #/LPF (NONE SEEN); Crystals Seen? None Seen #/HPF (None Seen); Mucus Urine TRACE (NONE SEEN); RBC Urine NONE SEEN #/HPF (0-2); Squamous Epithelial Cell Urine RARE #/LPF (NONE/RARE); Urine Culture Indicated ALREADY ORDERED
--- NOTE | 2023-08-16 12:50 | PM.DS1 ---
DS: Providers Provider Date of admission: 08/15/23 16:09 Primary care physician: Thomas Alas MD DS: Diagnosis Discharge Diagnosis (1) Nausea and vomiting: (2) Flank pain: (3) Acute abdomen: (4) GERD (gastroesophageal reflux disease): DS: Summary Hospital Course Hospital Course: Patient with an extensive abdominal history, presented with increasing abdominal pain, felt dehydrated. Patient was given fluids overnight. Concern for small bowel obstruction, upper GI with small bowel follow-through completed without difficulty. Exam was normal. Patient felt improved later in the day. So the dehydration appears to be improving she is not back to baseline yet, but she has a next tensive plan as an outpatient. With tube feeds and IV fluid boluses as needed. This point we will discharge patient to home in improving condition. Medications see list. Follow-up with me in the office within the next week. Status at Discharge Overall status at discharge: patient is not back to baseline Time Spent with Patient Time attestation: Total time spent providing and/or coordinating discharge services: Time spent: greater than 30 minutes Exam Constitutional Vital Signs, click to edit/add: Last Vital Signs Temp 98.4 F 08/16/23 07:47 Pulse 63 08/16/23 07:47 Resp 18 08/16/23 07:47 BP 108/70 08/16/23 07:47 Pulse Ox 98 08/16/23 14:42 O2 Del Method Room Air 08/16/23 14:42 Documenting provider has reviewed patient's vital signs: yes Common normals: apparent distress (She is more comfortable today from a pain standpoint) Exam limitations: no altered mental status and no behavioral limitations General appearance: not comfortable HENMI Common normals: oral mucous membranes not moist (Somewhat dry mucous membranes) Chest Common normals: inspection of chest normal and palpation of chest normal Respiratory Common normals: normal respiratory effort and no retractions Cardio Common normals: regular rate, regular rhythm, S1 normal heart sound and no murmurs GI Common normals: negative for Normal to inspection, nondistended, normoactive bowel sounds present (Feeding tube left upper abdomen.) and tender (Improved) Palpation: tender (Tenderness more left-sided); no rebound tenderness present (Tenderness improved) Discharge Plan Discharge Disposition: Home Health Service Condition: Good Discharge Medications: Continued hydroxyzine HCl 25 mg tablet 25 mg PO BID PRN (Reason: anxiety) liothyronine 5 mcg tablet 5 mcg PO QDAY topiramate 100 mg tablet 100 mg PO BID buspirone 10 mg tablet 10 mg PO TID methocarbamol 750 mg tablet 750 mg PO TID metoclopramide HCl 10 mg tablet 10 mg PO AC Linzess 290 mcg capsule 290 mcg PO DAILY albuterol sulfate 90 mcg/actuation HFA aerosol inhaler 2 puff INHALATION Q6H PRN (Reason: shortness of breath or wheezing) levothyroxine 75 mcg tablet 75 mcg PO .ACB escitalopram oxalate 20 mg tablet 20 mg PO DAILY mirtazapine 30 mg tablet 30 mg PO .HS pantoprazole 40 mg tablet,delayed release (DR/EC) 40 mg PO DAILY Nutrin 45 ml feeding tube Q1H Qty: 3000 11RF prochlorperazine maleate [Compazine] 10 mg tablet 10 mg PO Q6H PRN (Reason: nausea and vomiting) Qty: 60 3RF tramadol 50 mg tablet 50 mg PO Q6H PRN (Reason: pain) Qty: 28 0RF acetaminophen [Pain Relief (acetaminophen)] 325 mg tablet 650 mg PO Q4H PRN (Reason: pain) ondansetron 4 mg tablet,disintegrating 4 mg PO Q6H PRN (Reason: nausea and vomiting) Qty: 20 0RF Activity: resume usual activities as tolerated Diet: advance to your usual diet Print Language: Czech Patient Instructions: Acute Nausea and Vomiting (DC), Abdominal Pain (DC) Forms: Portal Instructions Follow Up Appointments: Follow up with Dr. Alas as needed Discharge Date/Time: 08/16/23 17:16
[2023-08-16 14:42] VITALS: O2SAT 98
--- NOTE | 2023-08-16 15:15 | FL_ITS ---
The [address] [address] Patient Name: JUAN KONG MRN: [id number] date: 1990 Sex: F Assigned Patient Location: [place] Current Patient Location: [place] Accession/Order Number: [id number] Exam Date: 08/16/2023 10:55 Report Date: 08/16/2023 15:40 At the request of: BRITT CALIX Procedure: FL small bowel follow through EXAMINATION: FL small bowel follow through HISTORY: abd pain , vomiting COMPARISON: No relevant comparison available. FLUOROSCOPY TIME: Fluoro time measures 0 minutes and 5 still images were obtained. TECHNIQUE: Small bowel series was performed in the usual manner. No cabinetmaker apprentice abdominal radiograph was performed. Standard level fluoroscopic mode of operation utilized. FINDINGS: DUODENUM: Not seen. JEJUNUM: Jejunostomy tube within left upper quadrant with filling of the jejunum and ileum with barium contrast.. Slow motility, but contrast does pass into and through the majority of the colon by 4 hours which is within normal limits.. No obstruction or visible lesion. ILEUM: No obstruction or visible lesion. OTHER: Negative. FL/FL small bowel follow through IMPRESSION: 1. Normal bowel caliber and appearance, with slightly slow motility. No obstruction or suspicious findings. 2. Jejunostomy tube in place. Electronically authenticated by: ALVERTO PHAM Date: 08/16/2023 15:40
[2023-08-16] MEDS: ONDANSETRON PF 4 MG/2 ML VIAL IV (15:54)
--- NOTE | 2023-08-17 13:44 | SWNOTE1 ---
SW received fax that pt was current with [facility]. MIRYAM faxed over ED note, H&P, dc med rec, and CRF to [facility] to resume pt's HH.
--- NOTE | 2023-08-17 15:37 | CM.DCFOLLOWU ---
1st attempt & no answer
--- NOTE | 2023-08-18 15:23 | CM.DCFOLLOWU ---
2nd attempt 08/18/23, no answer
--- NOTE | 2023-08-20 14:24 | CM.DCFOLLOWU ---
Person spoke with:patient How are you feeling? so/so How is your pain? still some pain, discharge from [facility] Did you understand your discharge instructions? yes Do you have any questions about your discharge instructions? no Were you given any prescriptions at discharge? no Were you able to get your prescriptions filled? N/A Do you understand how to take your medications as ordered? yes Do you have any questions about your follow up appointment and do you plan to keep your follow up appointment? no questions, spoke to Dr. Alas today and he is taking care of it. Is there anything else that you would like to discuss? no Questions/Comments/Concerns/Other:none
== END 2023-08-16 17:16 | disposition home health service (06) ==
LOC: ER 15:32 → MS 16:19
PROVIDERS: Internal Medicine; Admitting Provider Family Medicine; Emergency Provider Emergency Medicine; PCP Family Medicine; Visit Provider Family Medicine
DX: R11.2 Nausea with vomiting, unspecified (principal); E86.0 Dehydration; D70.9 Neutropenia, unspecified; D64.9 Anemia, unspecified; R39.9 Unspecified symptoms and signs involving the genitourinary system; E44.0 Moderate protein-calorie malnutrition; E03.9 Hypothyroidism, unspecified; K21.9 Gastro-esophageal reflux disease without esophagitis; R10.9 Unspecified abdominal pain; R10.0 Acute abdomen; F32.A Depression, unspecified; Z79.899 Other long term (current) 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; Z93.4 Other artificial openings of gastrointestinal tract status; Z68.28 Body mass index [BMI] 28.0-28.9, adult
CPT/HCPCS: 36415; 36592; 71045; 74019; 74248; 80048; 80053; 80076; 81001; 82150; 83690; 84703; 85025; 87086; 94761; 96361; 96372; 96374; 96375; 96376; 99285; G0328; G0378; J1650; J2270; J2405

== ENCOUNTER 2023-08-19 11:43 | Outpatient (REF) | payer OTHER, SELFPAY ==
--- OUTSIDE RECORDS SUMMARY | 2023-08-19 12:00 | XMS_ITS | CCD ---
Author Organization [facility] Care Team Providers Care Pamphlet Distributor Name Role Phone PHYSICIAN, DEFAULT Unavailable Unavailable PHYSICIAN, DEFAULT Unavailable Unavailable Shanna June Primary Care Provider Unavail able Slade LINER MACHINE OPERATOR, Shanna Primary Care Provider Mona vailable Slade SUPPORT SERVICES REP - SALES COUNSELOR, Shanna Primary Care Provid er LUCIE MORA Attending Unavailable SHANNA JUNE Primary Care Unavailable SHANNA JUNE Referring Unavailable LUCIE MORA Attending Unavailable SHANNA JUNE Primary Care Unavailable SELF, SELF Referring Unavailable Antelmo Davey Unavailable Deacon Kat MD Unavailable [phone] Slade CAMPOS, Shanna Unavailable Shanna June CNP Primary Care Provider Antelmo Davey MD Unavailable Wally Foley Primary Care Provider Shanna June Unavailable Wally Foley Primary Care Provider Antelmo Davey MD Unavailable Deacon Kat MD Unavailable Slade CAMPOS, Shanna Unavailable Slade CAMPOS Shnana Primary Care Provider Antelmo Davey MD Unavailable Deacon Kat MD Unavailable Slade CAMPOS, Shanna Unavailable Slade CAMPOS, Shanna Primary Care Provider Slade LABEL FOLDER, Shanna Unavailable [phone] Slade LABEL FOLDER, Shanna Primary Care Provider Antelmo Davey MD Unavailable Deacon Kat MD Unavailable [phone] Slade LABEL FOLDER, Shanna Unavailable [phone] Slade LABEL FOLDER, Shanna Primary Care Provider Wally Foley MD Primary Care Provider Jaquan Morrow Primary Care Physician Agustin Valentino [...] Unavailable ZURDO ., DR BURCH Admitting Unavailable [place] J[place]AN, DR BALDOMERO Campos Consulting Unavailable ZURDO ., [...] WALLY FOLEY Primary Care Unavailable EMMY WATSON [id number] Attending Unavailable WALLY FOLEY Primary Care Unavailable JD RAINEY Attending Unavailable WALLY FOLEY Primary Care Unavailable Slade LINER MACHINE OPERATOR, Shanna Primary Care Provider Mona vakayeble DIMITRI WALKER Attending Unavailable SLADE, SHANNA Primary Care Unavailable Giedraitis , Michelle Henning Attending Unavailable CRISTHIAN, JAQUAN Primary Care Unavailable CRISTHIAN, JAQUAN Primary Care Unavailable RODRIGUEZ Attending Unavailable CAMDEN RODRIGUEZ Admitting Unavailable CRISTHIAN, JAQUAN Primary Care Unavailable BRUNO WHEAT Consulting Unavailable CORIE HENDRICKSON Attending Unavailable Cristhian SUPPORT SERVICES REP.Jaquan CAMPOS Primary Care Provider JAQUAN MORROW L Primary Care Unavailable VIC RAMOS Attending Unavailable VIC RAMOS Admitting Unavailable Cristhian, SALES COUNSELOR-C Jaquan Ortega Primary Care Provider DO Claus Obrien Emergency Provider [phone] GENERIC PROVIDER, NO ASSIGNED PCP Primary Care Unavailable Generic Provider MD, No Assigned Pcp Primary Car e Provider Unavailable Generic Provider MD, No Assigned Pcp Primary Car e Provider Unavailable Dericimlaurel, LINER MACHINE OPERATOR-BC Trace E Emergency Provider Generic Provider MD, No Assigned Pcp Primary Car e Provider Unavailable Cristhian, SALES COUNSELOR-C Jaquan Ortega Primary Care Provider Beverley, [facility]- Trace E Emergency Provider SLIM Parker Emergency Provider Cristhian SUPPORT SERVICES REP.Jaquan CAMPOS Primary Care Provider Generic Provider , [...] Unavailable CRISTHIAN, JAQUAN L Primary Care Unavailable Critshian, SALES COUNSELOR-C Jaquan Ortega Primary Care Provider MD Thomas [...] Admitting Unavailable NAFFOUAUGUSTA, SAMER Consulting Unavailable GUTDEACON MARCANO R Attending Unavailable GUTNICK, DEACON R Referring Unavailable CRISTHIAN, JAQUAN L Primary Care Unavailable GUTNICK, DEACON R Admitting Unavailable GUTNICK, DEACON R Attending Unavailable DO Jeramy Cunningham Emergency Provider MARCOS MORENO Attending Unavailable JR. WARREN GEORGE C Attending Unavaila ble JR. WARREN GEORGE C Referring Unavaila ble Agustin Bautista Unavailable Thomas Calix MD Primary Care Provider NONE, XXXX Primary Care Physician Unavailab Mateusz [...] Attending Unavailable ELISA VIVEROS Consulting Unavailable BEATRICE, RAHSMI Admitting Unavailable CRISTHIAN, JAQUAN L Primary Care Unavailable CRISTHIAN, JAQUAN L Primary Care Unavailable ADIBI, STEVE Admitting Unavailable MANICKAM, SUNDARA Attending Unavailable ALBERT HUBBARD Consulting Unavailable CRISTHIAN, JAQUAN L Primary Care Unavailable THACKER, RYLEE Referring Unavailable THACKERROBBINTH Attending Unavailable BOOGIE MURGUIA Attending Unavailable THOMAS CALIX M Primary Care Unavailable MATIASVIC HANNA Referring Unavailable MATIASVIC HANNA Attending Unavailable HOTHOMAS Salomon M Primary Care Unavailable CRISTHIAN, JAQUAN L Primary Care Unavailable AGUSTIN ZAMORANO Attending Unavailable CRISTHIAN, JAQUAN L Primary Care Unavailable XIOMARA MARTINEZ Attending Unavailable CRISTHIAN, JAQUAN L Primary Care Unavailable CRISTHIAN, JAQUAN L Primary Care Unavailable KARINA العلي Attending Unavailable SEN MARCUS Admitting Unavaila ble SHANNA WOODS Attending Unavailable THOMAS CALIX Primary Care Unavailable CRISTHIAN, JAQUAN L Primary Care Unavailable BREANNA STERN Referring Unavailable CRISTHIAN, JAQUAN L Primary Care Unavailable THACKERYRLEE Attending Unavailable THACKER, RYLEE Referring Unavailable VIC RAMOS Attending Unavailable CRISTHIAN, JAQUAN L Primary Care Unavailable MATIASVIC HANNA Attending Unavailable CRISTHIAN, JAQUAN L Primary Care Unavailable THACKREROBBINTH Attending Unavailable THACKER, RYLEE Referring Unavailable CRISTHIAN, JAQUAN L Primary Care Unavailable SHANNA WOODS Attending Unavailable CRISTHIAN, JAQUAN L Primary Care Unavailable ROMIE HAIRSTON Admitting Unavailable THOMAS CALIX Primary Care Unavailable Deacon Kat Attending Unavailable CRISTHIAN, JAQUAN L Primary Care Unavailable SELF Referring Unavailable KASIE AVALOS Attending Unavailable CRISTHIAN, JAQUAN L Primary Care Unavailable Deacon Kat Attending Unavailable CRISTHIAN, JAQUAN L Primary Care Unavailable JARREDBREANNA Attending Unavailable CRISTHIAN, JAQUAN L Primary Care Unavailable WALLY FOLEY Referring Unavailable CRISTHIAN, JAQUAN L Primary Care Unavailable RYLEE THACKER Attending Unavailable Deacon Kat Referring Unavailable BREANNA STERN Attending Unavailable CRISTHIAN, JAQUAN L Primary Care Unavailable CRISTHIAN, JAQUAN L Primary Care Unavailable MARCOS MORENO Referring Unavailable FRANCISCO J STEVE Attending Unavailable Deacon Kat Attending Unavailable CRISTHIAN, JAQUAN Johnson Primary Care Unavailable Deacon Kat Referring Unavailable Deacon Kat Attending Unavailable CRISTHIAN, JAQUAN L Primary Care Unavailable Gabino Parker Attending Unavailable Cristhian, Jaquan Ortega Primary Care Unavailable Elena, Gabino Admitting Unavailable Thomas Calix M Primary Care Unavailable Marisa, Jeramy M Admitting Unavailable Marisa, Jeramy M Attending Unavailable Ramandeep, Shaan J Admitting Unavailable SabillonShaan Attending Unavailable Hoy, Thomas M Primary Care Unavailable Hoy Thomas M Primary Care Unavailable Michael, Yazid Admitting Unavailable Michael, Yazid Attending Unavailable Keven Kimbrough Unavailable CristhianJaquan hendricks Primary Care Unavailable Keister, Claus A Admitting Unavailable Keister Claus A Attending Unavailable Cristhian, Jaquan Ortega Primary Care Unavailable Bullimore, Trace E Admitting Unavailable Bullimore, Trace E Attending Unavailable Allergies Allergy Classification Reported Allergen(s) Allergy Type Date of Onset Reaction(s) Facility NSAIDs (1 source) NSAIDs; Translations: [NSAIDS (NON-STEROIDAL ANTI-INFLAMMATOR Y DRUG)] Drug Allergy 01-30-20 [facility] Other [place] [facility] Opioid Agonists (6 sources) Codeine; Translations: [CODEINE] Drug Allergy 10-04-19 GI Upset [facility] Other [place] [facility] (5 sources) Codeine And Related Propensity to adverse reactions to drug 07-08-19 14 Other (See Comments), Nausea And Vomiting [facility] (20 sources) Codeine; Translations: [codeine] Drug Allergy 10-04-19 20 GI Upset, Nausea/vomitin g [facility] (3 sources) Propofol Drug Allergy 06-19-19 22 Other: See Comments [facility] (20 sources) Adhesive Tape-Silicones; Translations: [ADHESIVE TAPE-SILICONES] Drug Intolerance 02-07-20 20 Intolerance [facility] (2 sources) Morphine And Related Propensity to adverse reactions to drug 07-08-19 14 Other (See Comments), Nausea And Vomiting [facility] (7 sources) Codeine Drug Allergy vomiting [facility] Other (4 sources) Acetaminophen / oxyCODONE Drug Allergy anaphylaxis [facility] Other (20 sources) Non-steroidal anti-inflammator y agent; Translations: [NSAIDS (NON-STEROIDAL ANTI-INFLAMMATOR Y DRUG)] Propensity to adverse reactions to drug 01-30-20 22 Contraindicati on-Medical Surgical, Nausea/vomitin g [facility] Work Phone: (1 source) Codeine Drug Allergy 07-08-19 14 [facility] (1 source) Anastia Drug allergy (disorder) [facility] (15 sources) Non-steroidal anti-inflammator y agent; Translations: [NSAIDs] Drug allergy Unknown (qualifier value) [facility] (2 sources) Acetaminophen; Translations: [acetaminophen] Drug Allergy 04-06-19 anaphylaxis [facility] (7 sources) oxyCODONE; Translations: [oxycodone] Drug Allergy 04-06-19 24 anaphylaxis [facility] (5 sources) NSAIDS (Non-Steroidal Anti-Inflamma; Translations: [NSAIDS (Non-Steroidal Anti-Inflamma] Propensity to adverse reactions 07-16-19 24 d/t surgery [facility] (1 source) Codeine Drug Allergy 08-14-19 [facility] Repository Medications Current Medications Medication Drug Class(es) [...] tab(s), Oral, BID, 30 tab(s), Refill(s) 0, [facility]/pharmacy #[id number], 167.2, cm, 05/05/22 [...] Oxycodone-Acetaminophen Discontinued 1 TAB PO Q6H 10 3 [...] for 3 day(s), 10 tab(s), Refill(s) 0, [facility]/pharmacy #[id number], 168, cm, 10/19/22 8:44:00 EDT, Height/Length Dosing, 85.6, kg, 10/19/22 8:44:00 EDT, Weight Dosing Start Date: 10/19/22 Stop Date: 10/22/22 Status: Ordered Start: 06-07-2022 acetaminophen- oxycodone 325 mg-5 mg Tab 1 tab(s), Oral, q4hr for pain, 12 tab(s), Refill(s) 0, [facility]/pharmacy #[id number], 168, cm, 06/07/22 [...] day(s), # 28 tab(s), Refills(s) 0, Pharmacy: [facility]/pharmacy #[id number], 168, cm, 06/17/22 [...] 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 [id number] 200 actuat albuterol 0.09 mg/actuat metered dose inhaler (20 sources) beta2-Adrenergic Agonist Start: 4 take 2 puff(s) by inhalation every four [...] 90 mcg/inh inhalation aerosol (10 sources) Start: 4 take 2 puff(s) by inhalation every six hours Albuterol (Eqv-Ventolin HFA) 90 mcg/inh inhalation aerosol 2 puff(s), Inhalation, q6hr, 18 gm, Refill(s) 3, [facility]/pharmacy #[id number], 167, cm, 05/17/23 14:25:00 EDT, Height/Length Dosing, 81, kg, 05/17/23 14:25:00 EDT, Weight Dosing Start Date: 05/31/23 Status: Ordered Start: 12-30-2022 take 2 puff(s) by in halation every six hours Albuterol (Eqv-Ventolin HFA) 90 mcg/inh inhalation aerosol 2 puff(s), Inhalation, q6hr, 18 gm, Refill(s) 0, [facility]/pharmacy #[id number], 168, cm, 12/29/22 15:01:00 EST, Height/Length [...] day(s), # 6 tab(s), Refills(s) 0, Pharmacy: [facility]/pharmacy #[id number], 168, cm, 12/29/22 [...] on above: Take 2 tablets by [facility] three times a day as needed [...] day(s), # 21 cap(s), Refills(s) 0, Pharmacy: [facility]/pharmacy #[id number], 168, cm, 12/29/22 [...] day(s), # 20 tab(s), Refills(s) 0, Pharmacy: [facility]/pharmacy #[id number], 168, cm, 06/17/22 [...] day(s), # 28 tab(s), Refills(s) 0, Pharmacy: [facility]/pharmacy #[id number], 167, cm, 05/06/23 15:49:00 EDT, Height/Length Dosing, 82.7, kg, 05/06/23 15:49:00 EDT, Weight Dosing Start Date: 05/06/23 Stop Date: 05/13/23 Status: Ordered Start: 04-02-2023 take 2 capsules by m outh four times daily Bentyl 10 mg Cap 20 mg = 2 cap(s), Oral, QID, # 20 cap(s), Refills(s) 0, Pharmacy: [facility]/pharmacy #[id number], 167, cm, 04/02/23 11:01:00 EST, Height/Length Dosing, 82.7, kg, 04/02/23 11:01:00 EST, Weight Dosing Start Date: 04/02/23 Status: Ordered Start: 06-05-2022 End: 06-15-2022 take 1 capsule by mouth four times daily Bentyl 10 mg Cap 10 mg = 1 cap(s), Oral, QID, X 10 day(s), # 40 cap(s), Refills(s) 0, Pharmacy: [facility]/pharmacy #[id number], 167.2, cm, 05/05/22 13:30:00 EDT, Height/Length Dosing, 84.5, kg, 05/05/22 13:30:00 EDT, Weight Dosing Start Date: 06/05/22 Stop Date: 06/15/22 Status: Ordered Start: 12-20-2020 take 2 capsules by m out four times daily Bentyl 10 mg Cap 20 mg = 2 cap(s), Oral, QID, # 20 cap(s), Refills(s) 0, [id number], cm, 12/20/20 9:30:00 EDT, Height/Length [...] Start: 06-09-2023 take 1 capsule by [facility] every twelve hours as needed docusate sodium [...] Start: 05-29-2022 take 1 capsule by mo ut twice daily doxycycline hyclate 100 mg Cap 100 mg = 1 cap(s), Oral, BID, # 20 cap(s), Refills(s) 0, Pharmacy: [facility]/pharmacy #[id number], 167.2, cm, 05/05/22 13:30:00 EDT, Height/Length Dosing, 84.5, kg, 05/05/22 13:30:00 EDT, Weight Dosing Start Date: 05/29/22 Status: Ordered Start: 03-31-2021 take 1 capsule by [facility] every twelve hours Doxycycline Monohydrate 100 MG 1 capsule Orally every 12 hrs for 7 days Mar, Active DULoxetine 60 mg oral capsule (15 sources) Serotonin and Norepinephrine Reuptake Inhibitor Start: 01-16-2021 take 60 mg by mouth twice daily Cymbalta 60 mg, Oral, BID, Refills(s) 0 Start Date: 01/16/21 Status: Ordered Start: 10-14-2019 take 1 capsule by mo ut every twelve hours DULoxetine HCl 60 MG 1 capsule Orally Twice a day for 90 days Sep, Active take 1 capsule by [facility] twice daily DULoxetine (CYMBALTA) 30 MG [...] Take 1 tablet by robinson once daily. ferrous sulfate 325 mg oral [...] Start: 01-20-2021 take 1 capsule by mo ut once daily, then take 1 capsule by mouth twice daily, then take 1 capsule by mouth three times daily gabapentin 300 mg Cap See Instructions, 1 cap(s) Oral daily x 1 day, 1 tab BID x 1 day, then 1 tab TID thereafter., # 90 cap(s), Refills(s) 0, Pharmacy: [facility]/pharmacy #[id number], 167, cm, 01/16/21 [...] Daily, # 60 tab(s), Refills(s) 1, Pharmacy: [facility]/pharmacy #[id number], 167, cm, 04/02/23 11:01:00 EST, Height/Length Dosing, 82.7, kg, 04/02/23 11:01:00 EST, Weight Dosing Start Date: 05/03/23 Status: Ordered Start: 03-03-2023 take 1 tablet by robinson th once daily levothyroxine 100 mcg (0.1 mg) Tab 100 mcg = 1 tab(s), Oral, Daily, # 90 tab(s), Refills(s) 0, Pharmacy: [facility], 168, cm, 02/03/23 14:52:00 EST, Height/Length Dosing, 85.5, kg, 02/03/23 14:52:00 EST, Weight Dosing Start Date: 03/03/23 Status: Ordered Start: 10-05-2022 take 1 tablet by robinson once daily levothyroxine 100 mcg (0.1 mg) Tab 100 mcg = 1 tab(s), Oral, Daily, # 30 tab(s), Refills(s) 1, Pharmacy: [facility]/pharmacy #[id number], 168, cm, 07/29/22 8:44:00 EDT, Height/Length Dosing, 81, kg, 07/29/22 8:44:00 EDT, Weight Dosing Start Date: 10/05/22 Status: Ordered Start: 07-22-2022 take 1 tablet by robinson th once daily levothyroxine 125 mcg (0.125 mg) Tab See Instructions, TAKE 1 TABLET BY MOUTH EVERY DAY, # 30 tab(s), Refills(s) 2, Pharmacy: [id number], 168, cm, 07/20/22 10:48:00 EDT, Height/Length Dosing, 81.1, kg, 07/20/22 10:48:00 EDT, Weight Dosing Start Date: 07/22/22 Status: Ordered Start: 04-23-2022 take 1 tablet by robinson th once daily levothyroxine 125 mcg (0.125 mg) Tab 125 mcg = 1 tab(s), Oral, Daily, # 90 tab(s), Refills(s) 0, Pharmacy: [facility]/pharmacy #[id number], 167.6, cm, 04/15/21 [...] on above: Take 1 capsule by [facility] DAILY (6 AM). Take 1 capsule by mo [facility] daily at 6 am. liothyronine sodium 0.005 mg oral tablet (20 sources) l-Triiodothyronin e Start: 03-03-2023 take 1 tablet by mouth once daily liothyronine 5 mcg Tab 5 mcg, Oral, Daily, # 90 tab(s), Refills(s) 3, Pharmacy: [facility], 168, cm, 02/03/23 14:52:00 EST, Height/Length Dosing, 85.5, kg, 02/03/23 14:52:00 EST, Weight Dosing Start Date: 03/03/23 Status: Ordered Start: 11-25-2022 take 1 tablet by robinson th once daily liothyronine 5 mcg Tab 5 mcg, Oral, Daily, # 90 tab(s), Refills(s) 3, Pharmacy: [facility]/pharmacy #[id number], 168, cm, 11/25/22 11:03:00 EDT, Height/Length Dosing, 82.5, kg, 11/25/22 11:03:00 EDT, Weight Dosing Start Date: 11/25/22 Status: Ordered Start: 05-21-2022 take 1 tablet by robinson th once daily liothyronine 5 mcg Tab 5 mcg, Oral, Daily, # 90 tab(s), Refills(s) 1, Pharmacy: [facility]/pharmacy #[id number], 167.2, cm, 05/05/22 13:30:00 EDT, Height/Length Dosing, 84.5, kg, 05/05/22 13:30:00 EDT, Weight Dosing Start Date: 05/21/22 Status: Ordered Start: 09-11-2019 take 5 ug by mouth once daily Liothyronine Active 5 MCG PO Daily February 13, 2023 1:00am take 1 tablet by robinson th every [...] dizziness, # 30 tab(s), Refills(s) 0, Pharmacy: [facility]/pharmacy #[id number], 168, cm, 06/10/22 10:57:00 EDT, Height/Length Dosing, 83.7, kg, 06/10/22 10:57:00 EDT, Weight Dosing Start Date: 06/10/22 Status: Ordered metFORMIN hydrochloride 1000 mg oral tablet (6 sources) Biguanide Start: 03-04-2018 take 1000 mg by mouth twice daily metformin 1,000 mg, Oral, BID, Refills(s) 0, Blood glucose Start Date: 03/04/18 Status: Ordered take 2 tablets by mo [facility] twice daily at mealtime metformin 500 MG [...] 0359 Start: 06-02-2023 take 1 tablet by robinson twice daily Robaxin-750 oral tablet 750 mg [...] day(s), # 21 tab(s), Refills(s) 0, Pharmacy: [facility]/pharmacy #[id number], 168, cm, 12/29/22 15:01:00 EST, Height/Length Dosing, 83.8, kg, 12/29/22 15:01:00 EST, Weight Dosing Start Date: 12/29/22 Stop Date: 01/04/23 Status: Ordered Start: 07-20-2022 End: 07-26-2022 Medrol 4 mg Tab = 1 packet(s ), Oral, As Directed, as directed on package labeling, X 6 day(s), # 21 tab(s), Refills(s) 0, Pharmacy: [facility]/pharmacy #[id number], 168, cm, 07/20/22 10:48:00 EDT, Height/Length [...] labeling, # 21 tab(s), Refills(s) 0, Pharmacy: [facility]/pharmacy #[id number], 167, cm, 04/02/23 [...] day(s), # 30 tab(s), Refills(s) 0, Pharmacy: [facility]/pharmacy #[id number], 168, cm, 06/17/22 [...] 1:00am Start: 11-10-2022 take 2 tablets by mo uth once daily at bedtime mirtazapine (Remeron) 15 [...] TABLET BY ROBINSON TH DAILY AT BEDTIME [facility] Prescription (1 source) Start: 06-11-19 [facility] Prescription Start Date: 06/11/23 Status: [...] weeks. Do not use calcium as a sack filler preparation. If insomnia or vivid dreams occur, [...] weeks. Do not use calcium as a sack filler preparation. If insomnia or vivid dreams occur, [...] Run for 18 hours, off 6 hours. 15052 mL 3 05/29/2023 06/09/2023 Discontinued Start: 05-29-2023 End: 08-27-2023 nutritional supplements (NUT PIPO 2.0) 0.08 gram-2 kcal/mL liqd 45 mL/hr by FEEDING TUBE route once daily. Run for 18 hours, off 6 hours. 32904 mL 3 05/29/2023 08/27/2023 Active Start: 05-28-2023 End: 08-26-2023 nutritional supplements (NUT PIPO 2.0) 0.08 gram-2 kcal/mL liqd 45 mL/hr by FEEDING TUBE route once daily. Run for 18 hours, off 6 hours. 35893 mL 3 05/28/2023 08/26/2023 Active Comment on above: 45 mL/hr by FEEDING TUBE route once daily. Run for 18 hours, off 6 hours. nystatin [id number] unt/ml oral suspension (1 source) Polyene Antifungal [...] q6hr, # 12 tab(s), Refills(s) 0, Pharmacy: [facility]/pharmacy #[id number], 168, cm, 06/07/22 10:23:00 EDT, Height/Length Dosing, 83, kg, 06/07/22 10:23:00 EDT, Weight Dosing Start Date: 06/07/22 Status: Ordered Start: 07-27-2021 End: 07-27-2021 ondansetron (ZOFRAN) injecti on 4 mg Start: 12-28-2020 take 1 tablet by robinson th three times daily Zofran ODT 4 mg Tab 4 mg = 1 tab(s), Oral, TID, # 10 tab(s), Refills(s) 0, Pharmacy: [facility]/pharmacy #[id number], 167, cm, 12/20/20 9:30:00 EDT, Height/Length [...] pain, # 12 cap(s), Refills(s) 0, Pharmacy: [facility]/pharmacy #[id number], 167, cm, 05/12/23 9:37:00 EDT, Height/Length Dosing, 79.8, kg, 05/12/23 9:37:00 EDT, Weight Dosing Start Date: 05/14/23 Status: Ordered Start: 05-09-2023 End: 05-12-2023 take 1 tablet by mouth every six hours oxyCODONE 5 mg Tab 5 mg = 1 tab(s), Oral, q6hr, X 3 day(s), # 10 tab(s), Refills(s) 0, Pharmacy: [facility]/pharmacy #[id number], 167, cm, 05/09/23 [...] tablet by robinson every 6 hours as needed for pain for up to 5 doses. polyethylene glycol 3350 04971 mg powder for oral solution (20 sources) Osmotic Laxative Start: 06-23-2022 Polyethylene Glycol 3350 (Miralax) 17 gram/dose powder Active 17 GM PO Twice daily May 30, 2023 12:00am mix into 4-8 oz. of any hot/cold/room temp. beverage; use immediately Start: 06-23-2022 End: 09-07-2023 polyethylene glycol 3350 (CA RALAX) 17 gram/dose powder Take 17 g by mouth once daily as needed for constipation. 0 06/09/2023 09/07/2023 Active Start: 06-23-2022 End: 06-09-2023 polyethylene glycol 3350 (CA RALAX) 17 gram/dose powder Take 17 g [...] Nausea/Vomiting, # 6 EA, Refills(s) 0, Pharmacy: [facility]/pharmacy #[id number], 167, cm, 05/06/23 [...] TID, # 15 tab(s), Refills(s) 0, Pharmacy: [facility]/pharmacy #[id number], 168, cm, 10/20/22 8:21:00 EDT, Height/Length Dosing, 85.6, kg, 10/20/22 8:21:00 EDT, Weight Dosing Start Date: 10/20/22 Status: Ordered Start: 06-10-2022 take 1 tablet by robinson th every four hours promethazine 12.5 mg oral tablet 12.5 mg = 1 tab(s), Oral, q4hr, # 60 tab(s), Refills(s) 0, [id number], cm, 06/10/22 12:37:00 EDT, Height/Length Dosing, 83.7, kg, 06/10/22 12:37:00 EDT, Weight Dosing Start Date: 06/10/22 Status: Ordered Start: 12-20-2020 take 1 tablet by robinson th every six hours as needed for nausea promethazine 25 mg Tab 25 mg = 1 tab(s), Oral, q6hr, PRN as needed for nausea/vomiting, # 12 tab(s), Refills(s) 0, [id number] 167, cm, 12/20/20 9:30:00 EDT, Height/Length [...] Nausea, # 20 tab(s), Refills(s) 0, Pharmacy: [facility]/pharmacy #[id number], 167, cm, 05/12/23 9:37:00 EDT, Height/Length Dosing, 79.8, kg, 05/12/23 9:37:00 EDT, Weight Dosing Start Date: 05/14/23 Status: Ordered Start: 04-02-2023 End: 04-16-2023 sucralfate 1 g/10 mL Oral Nance sp 10 mL 1 gm = 10 mL, Oral, QIDACHS, X 14 day(s), # 560 mL, Refills(s) 0, Pharmacy: [facility]/pharmacy #[id number], 167, cm, 04/02/23 [...] QID, # 280 mL, Refills(s) 0, Pharmacy: [facility]/pharmacy #[id number], 168, cm, 10/19/22 [...] on above: Take 1 tablet by robinson four times daily. tamsulosin hydrochloride 0.4 mg oral capsule (1 source) alpha-Adrenergic Blanka Start: 06-17-2022 take 1 capsule by mouth once daily Flomax 0.4 mg Cap 0.4 mg = 1 cap(s), Oral, Daily, # 10 cap(s), Refills(s) 0, Pharmacy: [facility]/pharmacy #[id number], 168, cm, 06/17/22 [...] Nausea/Vomiting, # 12 tab(s), Refills(s) 0, Pharmacy: [facility]/pharmacy #[id number], 167, cm, 05/06/23 [...] for pain. Take 2 tablets by mo ut every 6 hours as needed for headache [...] 08-30-2021 bupivacaine-EPINEP Hrine PF (MARCAINE-w/EPINEP HRINE) 0.5% -1:[id number] injection 10 mL calcium chloride 0.001 meq/ml [...] Refill(s) 0, Take 1 puff 2x daily., [facility]/pharmacy #[id number], 168, cm, 12/29/22 [...] 1 tablet by robinson th once daily. nutritional supplements (NUTREN 1.5) 0.07 gram-1.5 kcal/mL liqd (13 sources) Start: 05-26-19 End: 06-09-19 nutritional supplements (NUTREN 1.5) 0.07 gram-1.5 kcal/mL liqd TF for PEG-J Rate: 45cc/hr 61253 mL 1 05/26/2023 06/09/2023 Discontinued Start: 05-26-2023 nutritional nance pplements (NUTREN 1.5) 0.07 gram-1.5 kcal/mL liqd TF for PEG-J Rate: 45cc/hr 38925 mL 1 05/26/2023 Active Start: 05-21-2023 End: [...] Start: 10-19-2022 take 1 capsule by [facility] once daily omeprazole (PRILOSEC) 20 mg [...] Start: 01-15-2021 take 1 capsule by mo ut twice daily omeprazole (PRILOSEC) 40 mg capsule Take 1 capsule by mouth twice daily. 60 capsule 0 01/15/2021 Active Comment on above: Take 1 capsule by mo ut twice daily. Take 1 capsule by mo ut once daily. Take 1 capsule by mo ut as needed. TAKE 1 CAPSULE BY MO [...] Active Start: 05-14-2023 take 1 tablet by [facility] once daily Pantoprazole [address] Tab 40 mg = 1 tab(s), Oral, Daily, # 30 tab(s), Refills(s) 0, Pharmacy: [facility]/pharmacy #[id number], 167, cm, 05/12/23 [...] sodium chloride 0.9% 50 mL IV sennosides, [facility] 8.6 mg oral tablet (10 sources) Start: [...] on above: Take 2 tablets by [facility] four times daily as needed. solifenacin succinate [...] Active Start: 11-16-2022 take 1 tablet by [facility] every eight hours as needed for pain [...] pain, # 30 tab(s), Refills(s) 0, Pharmacy: [facility]/pharmacy #[id number], 168, cm, 06/26/22 [...] Acute and unspecified renal failure (3 sources) [id number] renal failure; Translations: [Acute kidney failure, unspecified] [...] 4 Chronic Other aftercare (1 source) Other [facility] (current) 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; Translations: [OTH CIGAR BANDER HAND CURRENT DRUG THERAPY] Onset: 3 Episodic Other [...] on 08-14-2023 ALT [Catalytic activity/Vol] 21 U/L Normal 7-52 [facility] Comment on above: Performed By: #### A DDONUAPLUS, [facility], U #### [facility] [address] Albumin [Mass/volume] in Ser um or Plasma by Bromocresol green (BCG) dye binding methoOrdered By: Shaan Sabillon on 08-14-2023 Albumin BCG dye [Mass/Vol] 4.2 g/dL 3.5-5.7 [facility] Alkaline phosphatase [Enzyma tic activity/volume] in Serum or PlasmaOrdered By: Shaan Sabillon on 08-14-2023 ALP [Catalytic activity/Vol] 59 U/L Normal 34-104 [facility] Comment on above: Performed By: #### A JOSESITO RAY, CUU #### [address] Aspartate aminotransferase [ Enzymatic activity/volume] in Serum or PlasmaOrdered By: Shaan Sabillon on 08-14-2023 AST [Catalytic activity/Vol] 32 U/L Normal 13-39 [facility] Comment on above: Performed By: #### A JOSESITO RAY, CUU #### [address] Automated basophil %Ordered By: Shaan Sabillon on 08-14-2023 Basophils/100 WBC (Bld) 0.6 % Normal . [facility] Comment on above: Performed By: #### A JOSESITO RAY, CUU #### [address] Automated basophil countOrde red By: Shaan Sabillon on 08-14-2023 Basophils (Bld) [#/Vol] 0.0 10*3/uL Normal 0.0-0.2 [facility] Comment on above: Result Comment: PERF ORMED BY: [place] [address] PATHOLOGIST MOLDER OPERATOR BAUTISTA BAKER M.D. Performed By: #### A JOSESITO RAY, CUU #### [address] Automated blood monocyte cou ntOrdered By: Shaan Sabillon on 08-14-2023 Monocytes (Bld) [#/Vol] 0.5 10*3/uL Normal 0.0-0.8 [facility] Comment on above: Performed By: #### A JOSESITO RAY, CUU #### [address] Automated eosinophil %Ordere d By: hSaan Sabillon on 08-14-2023 Eosinophils/100 WBC (Bld) 0.7 % Normal . [facility] Comment on above: Performed By: #### A JOSESITO RAY, CUU #### [address] Automated eosinophil countOr dered By: Shaan Sabillon on 08-14-2023 Eosinophils (Bld) [#/Vol] 0.0 10*3/uL Normal 0.0-0.45 [facility] Comment on above: Performed By: #### A JOSESITO RAY, CUU #### [address] Automated monocyte %Ordered By: Shaan Sabillon on 08-14-2023 Monocytes/100 WBC (Bld) 7.0 % Normal . [facility] Comment on above: Performed By: #### A JOSESITO RAY, CUU #### [address] Automated neutrophil %Ordere d By: Shaan Sabillon on 08-14-2023 Neutrophils/100 WBC (Bld) 54.4 % Normal . [facility] Comment on above: Performed By: #### A JOSESITO RAY, CUU #### [address] Basic Metabolic Panelon 07-17 Creatinine Clr Calc Pharmacy 116.71 Normal [facility] Comment on above: Performed By: #### A JOSESITO RAY, CUU #### [address] GFR/1.73 sq M.predicted MDRD (S/P/Bld) [Vol rate/Area] mL/min/{1.73_m2} Normal [facility] Comment on above: Performed By: #### A JOSESITO RAY, CUU #### [address] Bilirubin Test strip Ql (U)O rdered By: Shaan Sabillon on 08-14-2023 Bilirubin Ql (U) Negative Negative [facility] Bilirubin.direct [Mass/volum e] in Serum or PlasmaOrdered By: Shaan Sabillon on 08-14-2023 Bilirubin.direct [Mass/Vol] 0.10 mg/dL 0.03-0.18 [facility] Bilirubin.total [Mass/volume ] in Serum or PlasmaOrdered By: Shaan Sabillon on 08-14-2023 Bilirubin [Mass/Vol] 0.3 mg/dL Normal 0.3-1.0 [facility] Comment on above: Performed By: #### A DDONUAJESSICA, CG, CUU #### [address] abdomen pelvis w conon CT abdomen pelvis w con [facility] [place] [address] [place] [address] CT Scan Report Signed Patient: Abbey Garcia MR#: [id number] : 1990 Acct:[id number] Age/Sex: 33 / F ADM Date: 08/14/23 Loc: ER Room: Type: [facility] ER Attending Dr: Copies to: Shaan Sabillon PA-C Ordering Provider: Shaan Sabillon PA-C Date of Service: 08/14/23 CT/CT abdomen pelvis w con: Abdominal Pain CT ABDOMEN AND PELVIS WITH INTRAVENOUS CONTRAST: CLINICAL HISTORY: Abdominal pain and vomiting. Currently has J-tube with partial SBO. COMPARISON: CT abdomen and pelvis 07/31/2023 TECHNIQUE: Spiral images were obtained through the abdomen and pelvis following the administration of intravenous contrast. This CT exam was performed using one or more following dose reduction techniques: Automated exposure control, adjustment of the mA and/or kV according to patient size, or use of iterative reconstruction technique. FINDINGS: Lung Bases: [Left lower lobe scarring.] Organs:Liver cyst. Gallbladder has been removed. Portal vein pancreas spleen adrenal glands and kidneys all appear unremarkable. Abdominal aorta appears normal in caliber.[ GI: Stomach demonstrates gastric bypass changes. J-tube is in place. No small bowel dilatation. No acute colonic abnormality.[Append ix has been removed. Pelvis:[Urinary bladder is grossly unremarkable. Uterus has been removed. No adnexal mass.] Peritoneum/Retroper itoneum:No free air, free fluid or lymphadenopathy.[ Abd wall/Bones:Abdomina l wall demonstrates no acute findings. Osseous structures demonstrate degenerative change.[ CT/CT abdomen pelvis w con IMPRESSION: No acute findings. No evidence of small bowel obstruction. Impression dictated by: Cornel Medel Jr., D.O.08/14/2023 5:38 PM Dictation Location: [place] [address] Transcribed By: [facility] 08/14/23 173 Dictated By: Cornel Medel Jr, DO 08/14/231735 Signed By: 08/14/23 173 Normal [facility] Calcium [Mass/volume] in Ser um or PlasmaOrdered By: Shaan Sabillon on 08-14-2023 Calcium [Mass/Vol] 8.7 mg/dL Normal 8.6-10.3 [facility] Comment on above: Performed By: #### A DDONUAPLUS, UHCG, CUU #### [facility] [address] [place] [address] Carbon dioxide, total [Moles /volume] in Serum or PlasmaOrdered By: Shaan Sabillon on 08-14-2023 CO2 [Moles/Vol] 21.8 mmol/L Normal 21.0-31.[address] [facility] Comment on above: Performed By: #### A DDONUAPLUS, UHCG, CUU #### [facility] [address] [place] [address] [place] Chloride [Moles/volume] in S elder or PlasmaOrdered By: Shaan Sabillon on 08-14-2023 Chloride [Moles/Vol] 110 mmol/L High 98-107 [facility] Comment on above: Performed By: #### A DDONUAPLUS, UHCG, CUU #### [facility] [address] [place], [place] [id number] [place] Color of Urine by AutoOrdere d By: Shaan Sabillon on 08-14-2023 Color (U) Light-yellow Normal Yellow [facility] Comment on above: Order Comment: Name Collection Type:: Clean-Voided Midstream Performed By: #### A DDONUAPLUS, UHCG, CUU #### [facility] [address] [place], [place] [id number] [place] Complete Blood Count Auto Di ffon 08-14-2023 Mean Corpuscular HGB Conc 33.4 g/dL Normal 32.0-35.0 [facility] Comment on above: Performed By: #### A BRITTANIE RAYCG, CUU #### [address] Monocytes/100 WBC (Bld) 16.29 % Normal 0.00-20.00 [facility] Comment on above: Performed By: #### A DDBRITTANIE BERNABECG, CUU #### [address] NRBC% 0.0 /100{WBC} Normal 0-0.5 [facility] Comment on above: Performed By: #### A DDONDAVON UHCG, CUU #### [address] Creatinine [Mass/volume] in Serum or PlasmaOrdered By: Shaan Sabillon on 08-14-2023 Creatinine [Mass/Vol] 0.72 mg/dL Normal 0.60-1.20 [facility] Comment on above: Performed By: #### A BRITTANIE RAYCG, CUU #### [address] Erythrocyte distribution wid th [Ratio] by Automated countOrdered By: Shaan Sabillon on 08-14-2023 Erythrocyte distribution width (RBC) [Ratio] 14.0 % Normal 11.9-15.3 [facility] Comment on above: Performed By: #### A DDONDAVON UHCG, CUU #### [address] Erythrocytes [#/volume] in B lood by Automated countOrdered By: Shaan Sabillon on 08-14-2023 RBC (Bld) [#/Vol] 3.99 10*6/uL Normal 3.60-5.00 [facility] Comment on above: Performed By: #### A DDONDAVON, BRITTANIECG, CUU #### [address] Glucose [Mass/volume] in Ser um or PlasmaOrdered By: Shaan Sabillon on 08-14-2023 Glucose [Mass/Vol] 82 mg/dL Normal 70-100 [facility] Comment on above: ADA recommended refe rence rangeRandom Glucose Reference Range is dependent on time and content of last meal. Glucose of more than 200 mg/dL in a nonstressed, ambulatory subject supports the diagnosis of Diabetes Mellitus. Result Comment: [place] om Glucose Reference Range is dependent on time and content of last meal. Glucose of more than 200 mg/dL in a nonstressed, ambulatory subject supports the diagnosis of Diabetes Mellitus. ADA recommended reference range Performed By: #### A JOSESITO RAY, CUU #### [facility] [address] Glucose [Mass/volume] in Uri ne by Test stripOrdered By: Shaan Sabillon on 08-14-2023 Glucose Test strip (U) [Mass/Vol] Normal mg/dL Normal [facility] Hematocrit [Volume Fraction] of Blood by Automated countOrdered By: Shaan Sabillon on 08-14-2023 Hematocrit (Bld) [Volume fraction] 34.7 % Normal 34.0-46.4 [facility] Comment on above: Performed By: #### A JOSESITO RAY, CUU #### [facility] [address] Hemoglobin Test strip Ql (U) Ordered By: Shaan Sabillon on 08-14-2023 Hemoglobin Ql (U) Negative Negative [facility] Hemoglobin [Mass/volume] in BloodOrdered By: Shaan Sabillon on 08-14-2023 Hemoglobin (Bld) [Mass/Vol] 11.6 g/dL Low 11.8-15.4 [facility] Comment on above: Performed By: #### A JOSESITO RAY, CUU #### [facility] [address] Hepatic Panelon 08-14-2023 Albumin [Mass/Vol] 4.2 g/dL Normal 3.5-5.7 [facility] Comment on above: Performed By: #### A NISHONUAPLUS, UHCG, CUU #### [facility] [address] [place] [address] [place] Bilirubin,Indirect 0.2 mg/dL Normal [facility] Comment on above: Performed By: #### A DDONUAPLUS, UHCG, CUU #### [facility] [address] Bilirubin.indirect [Mass/Vol] 0.10 mg/dL Normal 0.03-0.18 [facility] Comment on above: Performed By: #### A DDONUAPLUS, UHCG, CUU #### [facility] [address] [place] [address] [place] Ketones [Presence] in Urine by Test stripOrdered By: Shaan Sabillon on 08-14-2023 Ketones Ql (U) Negative Normal Negative [facility] Comment on above: Order Comment: Name Collection Type:: Clean-Voided Midstream Performed By: #### A DDONUAPLUS, UHCG, CUU #### [place] [address] [place] Lactate [Moles/volume] in Se rum or PlasmaOrdered By: Shaan Sabillon on 08-14-2023 Lactate [Moles/Vol] 0.6 mmol/L Normal 0.5-2.2 [facility] Comment on above: Result Comment: PERF ORMED BY: [place] [address] PATHOLOGIST MOLDER OPERATOR BAUTISTA BAKER M.D. Performed By: #### A DDONUAPLUS, UHCG, CUU #### [place] [address] [place] Leukocyte esterase [Presence ] in Urine by Test stripOrdered By: Shaan Sabillon on 08-14-2023 Leukocyte esterase Test strip Ql (U) Negative Normal Negative [facility] Comment on above: Order Comment: Name Collection Type:: Clean-Voided Midstream Performed By: #### A DDONUAPLUS, UHCG, CUU #### [place] [address] [place] Leukocytes [#/volume] correc darvin for nucleated erythrocytes in Blood by Automated counOrdered By: Shaan Sabillon on 08-14-2023 WBC corrected for nucl RBC Auto (Bld) [#/Vol] 6.6 10*3/uL 3.8-11.6 [facility] Leukocytes [#/volume] in Blo od by Automated countOrdered By: Shaan Sabillon on 08-14-2023 WBC (Bld) [#/Vol] 6.6 10*3/uL Normal 3.8-11.6 [facility] Comment on above: Performed By: #### A JOSESITO RAY, CUU #### [address] Lipase [Enzymatic activity/v olume] in Serum or PlasmaOrdered By: Shaan Sabillon on 08-14-2023 Lipase [Catalytic activity/Vol] 67.0 U/L Normal 11.0-82.0 [facility] Comment on above: Result Comment: PERF ORMED BY: [place] [address] PATHOLOGIST MOLDER OPERATOR BAUTISTA BAKER M.D. Performed By: #### A ALIYAH RAYG, CUU #### [address] Lymphocytes [#/volume] in Bl ood by Automated countOrdered By: Shaan Sabillon on 08-14-2023 Lymphocytes (Bld) [#/Vol] 2.5 10*3/uL Normal 1.00-4.8 [facility] Comment on above: Performed By: #### A BRITTANIE RAYCG, CUU #### [place] [address] [place] Lymphocytes/100 leukocytes i n Blood by Automated countOrdered By: Shaan Sabillon on 08-14-2023 Lymphocytes/100 WBC (Bld) 37.3 % Normal . [facility] Comment on above: Performed By: #### A DDONDAVON, BRITTANIECG, CUU #### [place] [address] [place] MCH [Entitic mass] by Automa darvin countOrdered By: Shaan Sabillon on 08-14-2023 MCH (RBC) [Entitic mass] 29.0 pg Normal 24.7-34.3 [facility] Comment on above: Performed By: #### A JOSESITO RAY, CUU #### [facility] [address] MCHC Auto (RBC) [Mass/Vol]Or dered By: Shaan Sabillon on 08-14-2023 MCHC (RBC) [Mass/Vol] 33.4 g/dL 32.0-35.0 [facility] MCV [Entitic volume] by Auto mated countOrdered By: Shaan Sabillon on 08-14-2023 MCV (RBC) [Entitic vol] 87.0 fL Normal 80-100 [facility] Comment on above: Performed By: #### A CORY ELIS, CUU #### [facility] [address] [place] [address] Monocyte distribution width [Entitic volume] in Blood by AutomatedOrdered By: Shaan Sabillon on 08-14-2023 Monocyte distribution width Auto (Bld) [Entitic vol] 16.29 % 0.00-20.00 [facility] Neutrophils [#/volume] in Bl ood by Automated countOrdered By: Shaan Sabillon on 08-14-2023 Neutrophils (Bld) [#/Vol] 3.6 10*3/uL Normal 1.8-7.7 [facility] Comment on above: Performed By: #### A CORY ELIS, CUU #### [facility] [address] [place] [address] Nitrite Test strip Ql (U)Ord ered By: Shaan Sabillon on 08-14-2023 Nitrite Ql (U) Negative Negative [facility] No Panel InformationOrdered By: Shaan Sabillon on 08-14-2023 Estimated GFR (CKD-EPI) > 60.0 mL/Min [facility] Creatinine Clearance (Chem 116.71 [facility] Nucleated erythrocytes [Pres ence] in Blood by Automated countOrdered By: Shaan Sabillon on 08-14-2023 Nucleated RBC Auto Ql (Bld) 0.0 /100{WBC} 0-0.5 [facility] Platelet mean volume [Entiti c volume] in Blood by Automated countOrdered By: Shaan Sabillon on 08-14-2023 Platelet mean volume (Bld) [Entitic vol] 9.0 fL Normal 6.3-10.7 [facility] Comment on above: Performed By: #### A JOSESITO RAY, CUU #### [address] Platelets [#/volume] in Bloo d by Automated countOrdered By: Shaan Sabillon on 08-14-2023 Platelets (Bld) [#/Vol] 281 10*3/uL Normal 150-450 [facility] Comment on above: Performed By: #### A JOSESITO RAY, CUU #### [facility] [address] [place] [address] Potassium [Moles/volume] in Serum or PlasmaOrdered By: Shaan Sabillon on 08-14-2023 Potassium [Moles/Vol] 3.2 mmol/L Low 3.5-5.1 [facility] Comment on above: Performed By: #### A JOSESITO RAY, CUU #### [address] Protein Test strip (U) [Mass /Vol]Ordered By: Shaan Sabillon on 08-14-2023 Protein (U) [Mass/Vol] Negative Negative [facility] Protein [Mass/volume] in Ser um or PlasmaOrdered By: Shaan Sabillon on 08-14-2023 Protein [Mass/Vol] 6.9 g/dL Normal 6.4-8.9 [facility] Comment on above: Performed By: #### A JOSESITO RAY, CUU #### [address] Serum globulin measurement b y calculation (mass/volume)Ordered By: Shaan Sabillon on 08-14-2023 Globulin (S) [Mass/Vol] 2.7 g/dL Normal [facility] Comment on above: Performed By: #### A JOSESITO RAY, CUU #### [facility] [address] [place] [address] Serum or plasma albumin/glob ulin mass ratioOrdered By: Shaan Sabillon on 08-14-2023 Albumin/Globulin [Mass ratio] 1.6 {ratio} Normal [facility] Comment on above: Performed By: #### A JOSESITO RAY, CUU #### [address] Serum or plasma anion gap de terminationOrdered By: Shaan Sabillon on 08-14-2023 Anion gap [Moles/Vol] 10.4 mmol/L Normal 6.0-15.0 [facility] Comment on above: Performed By: #### A JOSESITO RAY, CUU #### [address] Serum or plasma non-glucuron idated bilirubin measurement (mass/volume)Ordered By: Shaan Sabillon on 08-14-2023 Bilirubin.indirect [Mass/Vol] 0.2 mg/dL [facility] Sodium [Moles/volume] in Ser um or PlasmaOrdered By: Shaan Sabillon on 08-14-2023 Sodium [Moles/Vol] 139 mmol/L Normal 136-145 [facility] Comment on above: Performed By: #### A JOSESITO RAY, CUU #### [address] Specific gravity Test strip (U) [Rel density]Ordered By: Shaan Sabillon on 08-14-2023 Specific gravity (U) [Rel density] 1.026 1.001-1.030 [facility] Urea nitrogen [Mass/volume] in Serum or PlasmaOrdered By: Shaan Sabillon on 08-14-2023 Urea nitrogen [Mass/Vol] 8 mg/dL Normal 7-25 [facility] Comment on above: Performed By: #### A JOSESITO RAY, CUU #### [place] [id number] [place] Urinalysison 08-14-2023 Bilirubin,Urine Negative Normal Negative [facility] Comment on above: Order Comment: Name Collection Type:: Clean-Voided Midstream Performed By: #### A DDONUAPLUS, UHCG, CUU #### [address] Glucose Ql (U) Normal Normal Normal [facility] Comment on above: Order Comment: Name Collection Type:: Clean-Voided Midstream Performed By: #### A DDONUAPLUS, UHCG, CUU #### [place] [address] [place] Nitrite,Urine Negative Normal Negative [facility] Comment on above: Order Comment: Name Collection Type:: Clean-Voided Midstream Performed By: #### A DDONUAPLUS, UHCG, CUU #### [place] [address] [place] Occult Blood,Urine Negative Normal Negative [facility] Comment on above: Order Comment: Name Collection Type:: Clean-Voided Midstream Result Comment: PERF ORMED BY: [place] [address] PATHOLOGIST MOLDER OPERATOR BAUTISTA BAKER M.D. Performed By: #### A DDONUAPLUS, UHCG, CUU #### [place] [address] [place] Protein,Urine Negative Normal Negative [facility] Comment on above: Order Comment: Name Collection Type:: Clean-Voided Midstream Performed By: #### A DDONUAPLUS, UHCG, CUU #### [place] [address] [place] Specificy [place],Urine 1.026 Normal 1.001-1.030 [facility] Comment on above: Order Comment: Name Collection Type:: Clean-Voided Midstream Performed By: #### A DDONUAPLUS, UHCG, CUU #### [place] [address] [place] Urobilinogen,Urine Normal Normal Normal [facility] Comment on above: Order Comment: Name Collection Type:: Clean-Voided Midstream Performed By: #### A DDONUAPLUS, UHCG, CUU #### [facility] [address] Urine appearanceOrdered By: Shaan Sabillon on 08-14-2023 Appearance (U) Clear Normal Clear [facility] Comment on above: Order Comment: Name Collection Type:: Clean-Voided Midstream Performed By: #### A DDONUAPLUS, UHCG, CUU #### [facility] [address] Urobilinogen Test strip (U) [Mass/Vol]Ordered By: Shaan Sabillon on 08-14-2023 Urobilinogen (U) [Mass/Vol] Normal mg/dL Normal [facility] pH of Urine by Test stripOrd ered By: Shaan Sabillon on 08-14-2023 pH (U) 7.0 [pH] Normal 5.0-9.0 [facility] Comment on above: Order Comment: Name Collection Type:: Clean-Voided Midstream Performed By: #### A DDONUAPLUS, UHCG, CUU #### [facility] [address] [place] [address] [place] CNPNon 08-12-2023 CNPN Normal [facility] CNOVon 08-09-2023 CNOV Normal [facility] CASE MGT INIT ASSESon 2023 CASE MGT INIT ASSES Normal [facility] CBC panel Auto (Bld)on 08-07 Erythrocyte distribution width (RBC) [Ratio] 13.2 % Normal 11.5-15.0 [facility] Comment on above: Order Comment: Speci men Type: BLOOD SPECIMENOrdering Facility: [facility] Address: [address] [place] [address] Performed By: #### 5 8410-2 ####[facility] LABCLIA [id number] [facility] [id number] [place] [address] [place] Hematocrit (Bld) [Volume fraction] 31.1 % Low 36.0-46.0 [facility] Comment on above: Order Comment: Speci men Type: BLOOD SPECIMENOrdering Facility: [facility] Address: [address] [place] [address] Performed By: #### 5 8410-2 ####[facility] LABIA [id number] [place] [address] [place] [place] Hemoglobin (Bld) [Mass/Vol] 9.9 g/dL Low 11.5-15.5 [facility] Comment on above: Order Comment: Speci men Type: BLOOD SPECIMENOrdering Facility: [facility] Address: [address] [place] [address] Performed By: #### 5 8410-2 ####[facility] LABIA [id number] [place] [address] [place] MCH (RBC) [Entitic mass] 29.4 pg Normal 26.0-34.0 [facility] Comment on above: Order Comment: Speci men Type: BLOOD SPECIMENOrdering Facility: [facility] Address: [address] [place] [address] Performed By: #### 5 8410-2 ####[facility] LABIA [id number] [place] [address] [place] MCHC (RBC) [Mass/Vol] 31.8 g/dL Normal 30.5-36.0 [facility] Comment on above: Order Comment: Speci men Type: BLOOD SPECIMENOrdering Facility: [facility] Address: [address] [place] [address] Performed By: #### 5 8410-2 ####[facility] LABIA [id number] [place] [address] [place] MCV (RBC) [Entitic vol] 92.3 fL Normal 80.0-100.0 [facility] Comment on above: Order Comment: Speci men Type: BLOOD SPECIMENOrdering Facility: [facility] Address: [address] [place] [address] Performed By: #### 5 8410-2 ####[facility] LABCLIA [id number] [place] [address] [place] Nucleated RBC (Bld) [#/Vol] 10*3/uL Normal <0.01 [facility] Comment on above: Order Comment: Speci men Type: BLOOD SPECIMENOrdering Facility: [facility] Address: [address] [place] [address] Performed By: #### 5 8410-2 ####[facility] LABIA [id number] [place] [address] [place] Platelet mean volume (Bld) [Entitic vol] 10.3 fL Normal 9.0-12.7 [facility] Comment on above: Order Comment: Speci men Type: BLOOD SPECIMENOrdering Facility: [facility] Address: [address] [place] [address] Performed By: #### 5 8410-2 ####[facility] LABCLIA [id number] [place] [address] [place] Platelets (Bld) [#/Vol] 267 10*3/uL Normal 150-400 [facility] Comment on above: Order Comment: Speci men Type: BLOOD SPECIMENOrdering Facility: [facility] Address: [address] [place] [address] Performed By: #### 5 8410-2 ####[facility] LABCLIA [id number] [place] [address] [place] RBC (Bld) [#/Vol] 3.37 10*6/uL Low 3.90-5.20 [facility] Comment on above: Order Comment: Speci men Type: BLOOD SPECIMENOrdering Facility: [facility] Address: [address] [place] [address] Performed By: #### 5 8410-2 ####[facility] LABCLIA [id number] [place] [id number] [place] WBC (Bld) [#/Vol] 3.17 10*3/uL Low 3.70-11.00 [facility] Comment on above: Order Comment: Speci men Type: BLOOD SPECIMENOrdering Facility: [facility] Address: [address] [place] [address] Performed By: #### 5 8410-2 ####[facility] LABIA [id number] [place] [id number] [place] CNDSon 08-08-2023 CNDS Normal [facility] CRP SerPl-mCncon 08-08-2023 CRP [Mass/Vol] mg/L Normal <0.9 [facility] Comment on above: Order Comment: Speci men Type: BLOOD SPECIMENOrdering Facility: [facility] Address: [address] [place] [address] Performed By: #### 1 988-5, 88159-2, 14884-1 ####[facility] LABIA [id number] [place] [address] [place] Magnesium SerPl-mCncon 08-07 Magnesium [Mass/Vol] 2.0 mg/dL Normal 1.7-2.3 [facility] Comment on above: Order Comment: Speci men Type: BLOOD SPECIMENOrdering Facility: [facility] Address: [address] [place] [address] Performed By: #### 1 988-5, 66884-2, 67931-0 ####[facility] LABIA [id number] [place] [id number] [place] NUTRITIONon 08-08-2023 NUTRITION Normal [facility] Renal function 2000 panelon 08-08-2023 Albumin [Mass/Vol] 3.4 g/dL Low 3.9-4.9 [facility] Comment on above: Order Comment: Speci men Type: BLOOD SPECIMENOrdering Facility: [facility] Address: [address] [place] [address] Performed By: #### 1 988-5, , ####[facility] LABCLIA [id number] [place] [address] [place] Anion gap [Moles/Vol] 9 mmol/L Normal 8-15 [facility] Comment on above: Order Comment: Speci men Type: BLOOD SPECIMENOrdering Facility: [facility] Address: [address] [place] [address] Performed By: #### 1 988-5, , ####[facility] LABCLIA [id number] [place] [address] [place] Calcium [Mass/Vol] 8.7 mg/dL Normal 8.5-10.2 [facility] Comment on above: Order Comment: Speci men Type: BLOOD SPECIMENOrdering Facility: [facility] Address: [address] [place] [address] Performed By: #### 1 988-5, , ####[facility] LABCLIA [id number] [place] [address] [place] Chloride [Moles/Vol] 108 mmol/L High 98-107 [facility] Comment on above: Order Comment: Speci men Type: BLOOD SPECIMENOrdering Facility: [facility] Address: [address] [place] [address] Performed By: #### 1 988-5, , 01973-5 ####[facility] LABCLIA [id number] [place] [address] [place] CO2 [Moles/Vol] 22 mmol/L Normal 22-30 [facility] Comment on above: Order Comment: Speci men Type: BLOOD SPECIMENOrdering Facility: [facility] Address: [address] [place] [address] Performed By: #### 1 988-5, , 45776-8 ####[facility] LABIA [id number] [place] [id number] [place] Creatinine [Mass/Vol] 0.69 mg/dL Normal 0.58-0.96 [facility] Comment on above: Order Comment: Speci men Type: BLOOD SPECIMENOrdering Facility: [facility] Address: [address] [place] [address] Performed By: #### 1 988-5, , ####[facility] LABIA [id number] [place] [address] [place] Creatinine and Glomerular filtration rate.predicted panel (S/P/Bld) 117 mL/min/1.73m??? Normal >=60 [facility] Comment on above: Order Comment: Geraldo [facility] Type: BLOOD SPECIMENOrdering Facility: [facility] Address: [address] [place] [address] Result Comment: Jessica mated Glomerular Filtration Rate [...] actual GFR. Performed By: #### 1 988-5, , ####[facility] LABIA [id number] [address] [address] [place] Glucose [Mass/Vol] 89 mg/dL Normal 74-99 [facility] Comment on above: Order Comment: Geraldo elida Type: BLOOD SPECIMENOrdering Facility: [facility] Address: [address] [place] [address] Result Comment: The [place] [employer] (ADA) provides guidance for cutoff [...] Standards of Medical Care in Diabetes 2016, [place] [employer]. Diabetes Care. 2016.39(Suppl 1). Performed By: #### 1 988-5, , 73139-7 ####[facility] LABCLIA [id number] [place] [address] [place] Phosphate [Mass/Vol] 3.9 mg/dL Normal 2.7-4.8 [facility] Comment on above: Order Comment: Speci men Type: BLOOD SPECIMENOrdering Facility: [facility] Address: [address] [place] [address] Performed By: #### 1 988-5, , ####[facility] LABCLIA [id number] [place] [address] [place] Potassium [Moles/Vol] 4.1 mmol/L Normal 3.7-5.1 [facility] Comment on above: Order Comment: Lyssai men Type: BLOOD SPECIMENOrdering Facility: [facility] Address: [address] [place] [address] Performed By: #### 1 988-5, , ####[facility] LABCLIA [id number] [address] [address] [place] Sodium [Moles/Vol] 139 mmol/L Normal 136-144 [facility] Comment on above: Order Comment: Speci men Type: BLOOD SPECIMENOrdering Facility: [facility] Address: [address] [place] [address] Performed By: #### 1 988-5, , 08102-6 ####[facility] LABCLIA [id number] [place] [address] [place] Urea nitrogen [Mass/Vol] 7 mg/dL Normal 7-21 [facility] Comment on above: Order Comment: Speci men Type: BLOOD SPECIMENOrdering Facility: [facility] Address: [address] [place] [address] Performed By: #### 1 988-5, 71832-6, 54295-7 ####[facility] LABIA [id number] [place] [address] [place] CBC W Auto Differential pane l (Bld)on 08-07-2023 Basophils (Bld) [#/Vol] 0.04 10*3/uL Normal <0.11 [facility] Comment on above: Order Comment: Speci men Type: BLOOD SPECIMENOrdering Facility: [facility] Address: [address] [place] [address] Performed By: #### 1 4196-0, 11335-7 ####[facility] LABIA [id number] [place] [address] [place] Basophils/100 WBC (Bld) 0.7 % Normal [facility] Comment on above: Order Comment: Speci men Type: BLOOD SPECIMENOrdering Facility: [facility] Address: [address] [place] [address] Performed By: #### 1 4196-0, 21358-2 ####[facility] LABIA [id number] [place] [address] [place] Differential cell count method Nom (Bld) Auto Normal [facility] Comment on above: Order Comment: Speci men Type: BLOOD SPECIMENOrdering Facility: [facility] Address: [address] [place] [address] Performed By: #### 1 4196-0, 51455-7 ####[facility] LABIA [id number] [place] [address] [place] Eosinophils (Bld) [#/Vol] 0.10 10*3/uL Normal <0.46 [facility] Comment on above: Order Comment: Speci men Type: BLOOD SPECIMENOrdering Facility: [facility] Address: [address] [place] [address] Performed By: #### 1 4196-0, 34312-5 ####[facility] LABCLIA [id number] [place] [address] [place] Eosinophils/100 WBC (Bld) 1.8 % Normal [facility] Comment on above: Order Comment: Speci men Type: BLOOD SPECIMENOrdering Facility: [facility] Address: [address] [place] [address] Performed By: #### 1 4196-0, 53194-3 ####[facility] LABCLIA [id number] [place] [address] [place] Erythrocyte distribution width (RBC) [Ratio] 12.6 % Normal 11.5-15.0 [facility] Comment on above: Order Comment: Speci men Type: BLOOD SPECIMENOrdering Facility: [facility] Address: [address] [place] [address] Performed By: #### 1 4196-0, 60348-9 ####[facility] LABCLIA [id number] [place] [address] [place] Hematocrit (Bld) [Volume fraction] 30.4 % Low 36.0-46.0 [facility] Comment on above: Order Comment: Speci men Type: BLOOD SPECIMENOrdering Facility: [facility] Address: [address] [place] [address] Performed By: #### 1 4196-0, 55796-1 ####[facility] LABCLIA [id number] [place] [address] [place] Hemoglobin (Bld) [Mass/Vol] 10.1 g/dL Low 11.5-15.5 [facility] Comment on above: Order Comment: Speci men Type: BLOOD SPECIMENOrdering Facility: [facility] Address: [address] [place] [address] Performed By: #### 1 4196-0, 72076-1 ####[facility] LABCLIA [id number] [place] [address] [place] Immature granulocytes (Bld) [#/Vol] 10*3/uL Normal <0.10 [facility] Comment on above: Order Comment: Speci men Type: BLOOD SPECIMENOrdering Facility: [facility] Address: [address] [place] [address] Performed By: #### 1 4196-0, 35394-1 ####[facility] LABCLIA [id number] [place] [address] [place] Immature granulocytes/100 WBC (Bld) 0.2 % Normal [facility] Comment on above: Order Comment: Speci men Type: BLOOD SPECIMENOrdering Facility: [facility] Address: [address] [place] [address] Performed By: #### 1 4196-0, 11198-0 ####[facility] LABCLIA [id number] [place] [address] [place] Lymphocytes (Bld) [#/Vol] 1.13 10*3/uL Normal 1.00-4.00 [facility] Comment on above: Order Comment: Speci men Type: BLOOD SPECIMENOrdering Facility: [facility] Address: [address] [place] [address] Performed By: #### 1 4196-0, 08211-4 ####[facility] LABCLIA [id number] [place] [address] [place] Lymphocytes/100 WBC (Bld) 20.8 % Normal [facility] Comment on above: Order Comment: Speci men Type: BLOOD SPECIMENOrdering Facility: [facility] Address: [address] [place] [address] Performed By: #### 1 4196-0, 97015-2 ####[facility] LABCLIA [id number] [place] [address] [place] MCH (RBC) [Entitic mass] 29.5 pg Normal 26.0-34.0 [facility] Comment on above: Order Comment: Speci men Type: BLOOD SPECIMENOrdering Facility: [facility] Address: [address] [place] [address] Performed By: #### 1 4196-0, 63153-4 ####[facility] LABCLIA [id number] [place] [address] [place] MCHC (RBC) [Mass/Vol] 33.2 g/dL Normal 30.5-36.0 [facility] Comment on above: Order Comment: Speci men Type: BLOOD SPECIMENOrdering Facility: [facility] Address: [address] [place] [address] Performed By: #### 1 4196-0, 64034-9 ####[facility] LABIA [id number] [place] [address] [place] MCV (RBC) [Entitic vol] 88.9 fL Normal 80.0-100.0 [facility] Comment on above: Order Comment: Speci men Type: BLOOD SPECIMENOrdering Facility: [facility] Address: [address] [place] [address] Performed By: #### 1 4196-0, 92125-8 ####[facility] LABIA [id number] [place] [address] [place] Monocytes (Bld) [#/Vol] 0.38 10*3/uL Normal <0.87 [facility] Comment on above: Order Comment: Speci men Type: BLOOD SPECIMENOrdering Facility: [facility] Address: [address] [place] [address] Performed By: #### 1 4196-0, 76035-6 ####[facility] LABCLIA [id number] [place] [address] [place] Monocytes/100 WBC (Bld) 7.0 % Normal [facility] Comment on above: Order Comment: Speci men Type: BLOOD SPECIMENOrdering Facility: [facility] Address: [address] [place] [address] Performed By: #### 1 4196-0, 92795-0 ####[facility] LABCLIA [id number] [place] [address] [place] Neutrophils (Bld) [#/Vol] 3.78 10*3/uL Normal 1.45-7.50 [facility] Comment on above: Order Comment: Speci men Type: BLOOD SPECIMENOrdering Facility: [facility] Address: [address] [place] [address] Performed By: #### 1 4196-0, 20348-0 ####[facility] LABCLIA [id number] [place] [address] [place] Neutrophils/100 WBC (Bld) 69.5 % Normal [facility] Comment on above: Order Comment: Speci men Type: BLOOD SPECIMENOrdering Facility: [facility] Address: [address] [place] [address] Performed By: #### 1 4196-0, 56580-8 ####[facility] LABCLIA [id number] [place] [address] [place] Nucleated RBC (Bld) [#/Vol] 10*3/uL Normal <0.01 [facility] Comment on above: Order Comment: Speci men Type: BLOOD SPECIMENOrdering Facility: [facility] Address: [address] [place] [address] Performed By: #### 1 4196-0, 52628-8 ####[facility] LABCLIA [id number] [place] [address] [place] Nucleated RBC/100 WBC (Bld) [Ratio] 0.0 /100 WBC Normal [facility] Comment on above: Order Comment: Speci men Type: BLOOD SPECIMENOrdering Facility: [facility] Address: [address] [place] [address] Performed By: #### 1 4196-0, 33380-9 ####[facility] LABCLIA [id number] [place] [address] [place] Platelet mean volume (Bld) [Entitic vol] 10.0 fL Normal 9.0-12.7 [facility] Comment on above: Order Comment: Speci men Type: BLOOD SPECIMENOrdering Facility: [facility] Address: [address] [place] [address] Performed By: #### 1 4196-0, 60294-2 ####[facility] LABCLIA [id number] [place] [address] [place] Platelets (Bld) [#/Vol] 271 10*3/uL Normal 150-400 [facility] Comment on above: Order Comment: Speci men Type: BLOOD SPECIMENOrdering Facility: [facility] Address: [address] [place] [address] Performed By: #### 1 4196-0, 53812-7 ####[facility] LABIA [id number] [place] [address] [place] RBC (Bld) [#/Vol] 3.42 10*6/uL Low 3.90-5.20 [facility] Comment on above: Order Comment: Speci men Type: BLOOD SPECIMENOrdering Facility: [facility] Address: [address] [place] [address] Performed By: #### 1 4196-0, 41937-6 ####[facility] LABCLIA [id number] [place] [address] [place] WBC (Bld) [#/Vol] 5.44 10*3/uL Normal 3.70-11.00 [facility] Comment on above: Order Comment: Speci men Type: BLOOD SPECIMENOrdering Facility: [facility] Address: [address] [place] [address] Performed By: #### 1 4196-0, 80663-5 ####[facility] LABCLIA [id number] [address] [address] [place] Comprehensive metabolic 2000 panelon 08-07-2023 Albumin [Mass/Vol] 3.7 g/dL Low 3.9-4.9 [facility] Comment on above: Order Comment: Speci men Type: BLOOD SPECIMENOrdering Facility: [facility] Address: [address] [place] [address] Performed By: #### 1 9123-9, 3040-3, 07213-7 ####[facility] LABIA [id number] [place] [address] [place] ALP [Catalytic activity/Vol] 58 U/L Normal 34-123 [facility] Comment on above: Order Comment: Speci men Type: BLOOD SPECIMENOrdering Facility: [facility] Address: [address] [place] [address] Performed By: #### 1 9123-9, 3040-3, 78571-9 ####[facility] LABIA [id number] [place] [address] [place] ALT [Catalytic activity/Vol] 16 U/L Normal 7-38 [facility] Comment on above: Order Comment: Speci men Type: BLOOD SPECIMENOrdering Facility: [facility] Address: [address] [place] [address] Performed By: #### 1 9123-9, 0-3, 91727-3 ####[facility] LABIA [id number] [place] [id number] [place] Anion gap [Moles/Vol] 8 mmol/L Normal 8-15 [facility] Comment on above: Order Comment: Speci men Type: BLOOD SPECIMENOrdering Facility: [facility] Address: [address] [place] [address] Performed By: #### 1 9123-9, 0-3, 23841-2 ####[facility] LABIA [id number] [place] [address] [place] AST [Catalytic activity/Vol] 18 U/L Normal 13-35 [facility] Comment on above: Order Comment: Speci men Type: BLOOD SPECIMENOrdering Facility: [facility] Address: [address] [place] [address] Performed By: #### 1 9123-9, 3039-3, 46882-2 ####[facility] LABIA [id number] [place] [address] [place] Bilirubin [Mass/Vol] 0.2 mg/dL Normal 0.2-1.3 [facility] Comment on above: Order Comment: Speci men Type: BLOOD SPECIMENOrdering Facility: [facility] Address: [address] [place] [address] Performed By: #### 1 9123-9, 3039-3, 61879-7 ####[facility] LABIA [id number] [place] [address] [place] Calcium [Mass/Vol] 8.0 mg/dL Low 8.5-10.2 [facility] Comment on above: Order Comment: Speci men Type: BLOOD SPECIMENOrdering Facility: [facility] Address: [address] [place] [address] Performed By: #### 1 9123-9, 3040-3, 89691-8 ####[facility] LABIA [id number] [place] [address] [place] Chloride [Moles/Vol] 108 mmol/L High 98-107 [facility] Comment on above: Order Comment: Speci men Type: BLOOD SPECIMENOrdering Facility: [facility] Address: [address] [place] [address] Performed By: #### 1 9123-9, 0-3, 67474-5 ####[facility] LABCLIA [id number] [place] [address] [place] CO2 [Moles/Vol] 23 mmol/L Normal 22-30 [facility] Comment on above: Order Comment: Speci men Type: BLOOD SPECIMENOrdering Facility: [facility] Address: [address] [place] [address] Performed By: #### 1 9123-9, 3039-3, 82384-0 ####[facility] LABIA [id number] [place] [address] [place] Creatinine [Mass/Vol] 0.60 mg/dL Normal 0.58-0.96 [facility] Comment on above: Order Comment: Speci men Type: BLOOD SPECIMENOrdering Facility: [facility] Address: [address] [place] [address] Performed By: #### 1 9123-9, 3, ####[facility] LABIA [id number] [place] [address] [place] Creatinine and Glomerular filtration rate.predicted panel (S/P/Bld) 121 mL/min/1.73m??? Normal >=60 [facility] Comment on above: Order Comment: Speci men Type: BLOOD SPECIMENOrdering Facility: [facility] Address: [address] [place] [address] Result Comment: Jessica mated Glomerular Filtration Rate [...] actual GFR. Performed By: #### 1 9123-9, 0-3, 22792-0 ####[facility] LABIA [id number] [place] [address] [place] Glucose [Mass/Vol] 89 mg/dL Normal 74-99 [facility] Comment on above: Order Comment: Speci men Type: BLOOD SPECIMENOrdering Facility: [facility] Address: [address] [place] [address] Result Comment: The [place] [employer] (ADA) provides guidance for cutoff [...] Standards of Medical Care in Diabetes 2016, [place] [employer]. Diabetes Care. 2016.39(Suppl 1). Performed By: #### 1 9123-9, 3040-3, 41371-8 ####[facility] LABCLIA [id number] [place] [address] [place] Potassium [Moles/Vol] 3.6 mmol/L Low 3.7-5.1 [facility] Comment on above: Order Comment: Lyssai men Type: BLOOD SPECIMENOrdering Facility: [facility] Address: [address] [place] [address] Performed By: #### 1 9123-9, 304-3, 61377-3 ####[facility] LABCLIA [id number] [place] [id number] [place] Protein [Mass/Vol] 5.8 g/dL Low 6.3-8.0 [facility] Comment on above: Order Comment: Speci men Type: BLOOD SPECIMENOrdering Facility: [facility] Address: [address] [place] [address] Performed By: #### 1 9123-9, 3040-3, 63787-4 ####[facility] LABCLIA [id number] [place] [id number] [place] Sodium [Moles/Vol] 139 mmol/L Normal 136-144 [facility] [facility] Comment on above: Order Comment: Speci men Type: BLOOD SPECIMENOrdering Facility: [facility] Address: [address] [place] [address] Performed By: #### 1 9123-9, 3040-3, 90362-5 ####[facility] LABCLIA [id number] [place] [id number] [place] Urea nitrogen [Mass/Vol] 10 mg/dL Normal 7-21 [facility] Comment on above: Order Comment: Speci men Type: BLOOD SPECIMENOrdering Facility: [facility] Address: [address] [place] [address] Performed By: #### 1 9123-9, 3040-3, 32256-8 ####[facility] LABCLIA [id number] [place] [address] [place] UWV21dn 08-07-2023 ECG01 Normal [facility] ED NOTEon 08-07-2023 ED NOTE HNO ID: [id number] Author: PASTORA MADERA RN Service: ? Author Type: Registered Nurse Type: ED Notes Filed: 08/07/2023 17:39 Note Text: Report given to H80 Normal [facility] ED NOTE HNO ID: [id number] Author: PASTORA MADERA RN Service: ? Author Type: Registered Nurse Type: ED Notes Filed: 08/07/2023 17:07 Note Text: Report attempted x1. Call back # given Normal [facility] ED NOTE HNO ID: [id number] Author: ESTEFANI WHITE CT Service: Emergency Medicine Author Type: Clinical Instrument Tester Type: ED Notes Filed: 08/07/2023 09:32 Note Text: EKG complete Normal [facility] ED PROV NOTEon 08-07-2023 ED PROV NOTE Normal [facility] HISTORY PHYSICALon HISTORY PHYSICAL Normal [facility] Lactate (Bld) [Moles/Vol]on 08-07-2023 Lactate [Moles/Vol] 0.8 mmol/L Normal 0.5-2.2 [facility] Comment on above: Order Comment: Speci men Type: BLOOD SPECIMENOrdering Facility: [facility] Address: [address] [place] [address] Performed By: #### 3 2693-4 ####[facility] LABIA [id number] [place] [address] [place] Lipase SerPl-cCncon 08-07-19 24 Lipase [Catalytic activity/Vol] 45 U/L Normal 16-61 [facility] Comment on above: Order Comment: Speci men Type: BLOOD SPECIMENOrdering Facility: [facility] Address: [address] [place] [address] Performed By: #### 1 9123-9, 3040-3, 36016-0 ####[facility] [id number] [place] [address] [place] Magnesium SerPl-mCncon 08-06 Magnesium [Mass/Vol] 1.9 mg/dL Normal 1.7-2.3 [facility] Comment on above: Order Comment: Speci men Type: BLOOD SPECIMENOrdering Facility: [facility] Address: [address] [place] [address] Performed By: #### 1 9123-9, 3040-3, 44725-2 ####[facility] [id number] [place] [id number] [place] Retics #on 08-07-2023 Reticulocytes (Bld) [#/Vol] 0.49011 10*3/uL Normal 0.018-0.100 [facility] Comment on above: Order Comment: Speci men Type: BLOOD SPECIMENOrdering Facility: [facility] Address: [address] [place] [address] Performed By: #### 1 4196-0, 41707-7 ####[facility] LABCLIA [id number] [place] [id number] [place] Reticulocytes (Bld) [#/Vol]o n 08-07-2023 Reticulocytes/100 RBC (Bld) 1.6 % Normal 0.4-2.0 [facility] Comment on above: Order Comment: Speci men Type: BLOOD SPECIMENOrdering Facility: [facility] Address: [address] [place] [address] Performed By: #### 1 4196-0, 00856-6 ####[facility] LABIA [id number] [place] [address] [place] STREPTOCOCCUS PNEUMONIAE ANT IGEN URINEon 08-07-2023 STREPTOCOCCUS PNEUMONIAE ANTIGEN URINE Normal [facility] Comment on above: Performed By: #### S PNAG ####[facility] LABIA [id number] [place] [address] [place] XR CHEST 2V FRONTAL/LATon XR CHEST 2V FRONTAL/LAT Normal [facility] CASE MANAGEMon 08-06-2023 CASE MANAGEM Normal [facility] CNDSon 08-06-2023 CNDS [facility] CONSULT PROGon 08-06-2023 CONSULT PROG Normal [facility] Magnesium SerPl-mCncon 08-05 Magnesium [Mass/Vol] 1.8 mg/dL Normal 1.7-2.3 [facility] Comment on above: Order Comment: Speci men Type: BLOOD SPECIMENOrdering Facility: [facility] Address: [address] [place] [address] Performed By: #### 1 9123-9, 23706-4 ####[facility] LABORATORYCLIA [id number] [facility] [place] [address] [place] NURSING PROGon 08-06-2023 NURSING PROG Normal [facility] NUTRITIONon 08-06-2023 NUTRITION Normal [facility] Renal function 2000 panelon 06-21-2024 Albumin [Mass/Vol] 3.5 g/dL Low 3.9-4.9 [facility] Comment on above: Order Comment: Speci men Type: BLOOD SPECIMENOrdering Facility: [facility] Address: [address] [place] [address] Performed By: #### 1 9123-9, 08284-9 ####[facility] LABORATORYCLIA [id number] [place] [address] [place] Anion gap [Moles/Vol] 10 mmol/L Normal 8-15 [facility] Comment on above: Order Comment: Speci men Type: BLOOD SPECIMENOrdering Facility: [facility] Address: [address] [place] [address] Performed By: #### 1 9123-9, 74396-3 ####[facility] [id number] [place] [address] [place] Calcium [Mass/Vol] 8.2 mg/dL Low 8.5-10.2 [facility] Comment on above: Order Comment: Speci men Type: BLOOD SPECIMENOrdering Facility: [facility] Address: [address] [place] [address] Performed By: #### 1 9123-9, 01463-0 ####[facility] [id number] [place] [address] [place] Chloride [Moles/Vol] 106 mmol/L Normal 98-107 [facility] Comment on above: Order Comment: Speci men Type: BLOOD SPECIMENOrdering Facility: [facility] Address: [address] [place] [address] Performed By: #### 1 9123-9, 36334-7 ####[facility] LABORATORYIA [id number] [place] [address] [place] CO2 [Moles/Vol] 23 mmol/L Normal 22-30 [facility] Comment on above: Order Comment: Speci men Type: BLOOD SPECIMENOrdering Facility: [facility] Address: [address] [place] [address] Performed By: #### 1 9123-9, 51570-5 ####[facility] LABORATORYCLIA [id number] [place] [address] [place] Creatinine [Mass/Vol] 0.71 mg/dL Normal 0.58-0.96 [facility] Comment on above: Order Comment: [facility] Type: BLOOD SPECIMENOrdering Facility: [facility] Address: [address] [place] [address] Performed By: #### 1 9123-9, 62031-7 ####[facility] LABORATORYCLIA [id number] [place] [address] [place] Creatinine and Glomerular filtration rate.predicted panel (S/P/Bld) 115 mL/min/1.73m??? Normal >=60 [facility] Comment on above: Order Comment: [facility] Type: BLOOD SPECIMENOrdering Facility: [facility] Address: [address] [place] [address] Result Comment: Jessica mated Glomerular Filtration Rate [...] actual GFR. Performed By: #### 1 9123-9, 83091-6 ####[facility] LABORATORYIA [id number] [place] [address] [place] Glucose [Mass/Vol] 106 mg/dL High 74-99 [facility] Comment on above: Order Comment: [facility] Type: BLOOD SPECIMENOrdering Facility: [facility] Address: [address] [place] [address] Result Comment: The [place] [employer] (ADA) provides guidance for cutoff [...] Standards of Medical Care in Diabetes 2016, [place] [employer]. Diabetes Care. 2016.39(Suppl 1). Performed By: #### 1 9123-9, 23907-4 ####[facility] LABORATORYCLIA [id number] [place] [address] [place] Phosphate [Mass/Vol] 4.2 mg/dL Normal 2.7-4.8 [facility] Comment on above: Order Comment: Speci men Type: BLOOD SPECIMENOrdering Facility: [facility] Address: [address] [place] [address] Performed By: #### 1 9123-9, 39799-5 ####[facility] [id number] [place] [address] [place] Potassium [Moles/Vol] 3.8 mmol/L Normal 3.7-5.1 [facility] Comment on above: Order Comment: Speci men Type: BLOOD SPECIMENOrdering Facility: [facility] Address: [address] [place] [address] Performed By: #### 1 9123-9, 03696-1 ####[facility] [id number] [place] [address] [place] Sodium [Moles/Vol] 139 mmol/L Normal 136-144 [facility] Comment on above: Order Comment: Speci men Type: BLOOD SPECIMENOrdering Facility: [facility] Address: [address] [place] [address] Performed By: #### 1 9123-9, 40375-9 ####[facility] [id number] [place] [address] [place] Urea nitrogen [Mass/Vol] 12 mg/dL Normal 7-21 [facility] Comment on above: Order Comment: Speci men Type: BLOOD SPECIMENOrdering Facility: [facility] Address: [address] [place] [address] Performed By: #### 1 9123-9, 15091-6 ####[facility] LABORATORYCLIA [id number] [facility] [place] [address] [place] ALLIED HEALTHon 08-05-2023 ALLIED HEALTH Normal [facility] CASE MGT INIT ASSESon 2023 CASE MGT INIT ASSES Normal [facility] CONSULTon 08-05-2023 CONSULT Normal [facility] NUTRITIONon 08-05-2023 NUTRITION Normal [facility] CBC W Auto Differential pane l (Bld)on 08-04-2023 Basophils (Bld) [#/Vol] 0.04 10*3/uL Normal <0.11 [facility] Comment on above: Order Comment: Speci men Type: BLOOD SPECIMENOrdering Facility: [facility] Address: [address] [place] [address] Performed By: #### 5 7021-8 ####[facility] LABORATORYIA [id number] [place] [address] [place] Basophils/100 WBC (Bld) 0.5 % Normal [facility] Comment on above: Order Comment: Speci men Type: BLOOD SPECIMENOrdering Facility: [facility] Address: [address] [place] [address] Performed By: #### 5 7021-8 ####[facility] LABORATORYIA [id number] [place] [address] [place] Differential cell count method Nom (Bld) Auto Normal [facility] Comment on above: Order Comment: Speci men Type: BLOOD SPECIMENOrdering Facility: [facility] Address: [address] [place] [address] Performed By: #### 5 7021-8 ####[facility] LABORATORYIA [id number] [facility] [place] [address] [place] Eosinophils (Bld) [#/Vol] 0.05 10*3/uL Normal <0.46 [facility] Comment on above: Order Comment: Speci men Type: BLOOD SPECIMENOrdering Facility: [facility] Address: [address] [place] [address] Performed By: #### 5 7021-8 ####[facility] LABORATORYIA [id number] [place] [id number] [place] Eosinophils/100 WBC (Bld) 0.6 % Normal [facility] Comment on above: Order Comment: Speci men Type: BLOOD SPECIMENOrdering Facility: [facility] Address: [address] [place] [address] Performed By: #### 5 7021-8 ####[facility] LABORATORYCLIA [id number] [address] [place] Erythrocyte distribution width (RBC) [Ratio] 12.8 % Normal 11.5-15.0 [facility] Comment on above: Order Comment: Speci men Type: BLOOD SPECIMENOrdering Facility: [facility] Address: [address] [place] [address] Performed By: #### 5 7021-8 ####[facility] [id number] [address] [place] Hematocrit (Bld) [Volume fraction] 36.2 % Normal 36.0-46.0 [facility] Comment on above: Order Comment: Speci men Type: BLOOD SPECIMENOrdering Facility: [facility] Address: [address] [place] [address] Performed By: #### 5 7021-8 ####[facility] LABORATORYIA [id number] [place] [id number] [place] Hemoglobin (Bld) [Mass/Vol] 12.0 g/dL Normal 11.5-15.5 [facility] Comment on above: Order Comment: Speci men Type: BLOOD SPECIMENOrdering Facility: [facility] Address: [address] [place] [address] Performed By: #### 5 7021-8 ####[facility] LABORATORYIA [id number] [place] [id number] [place] Immature granulocytes (Bld) [#/Vol] 10*3/uL Normal <0.10 [facility] Comment on above: Order Comment: Speci men Type: BLOOD SPECIMENOrdering Facility: [facility] Address: [address] [place] [address] Performed By: #### 5 7021-8 ####[facility] [id number] [place] [address] [place] Immature granulocytes/100 WBC (Bld) 0.2 % Normal [facility] Comment on above: Order Comment: Speci men Type: BLOOD SPECIMENOrdering Facility: [facility] Address: [address] [place] [address] Performed By: #### 5 7021-8 ####[facility] [id number] [place] [address] [place] Lymphocytes (Bld) [#/Vol] 1.30 10*3/uL Normal 1.00-4.00 [facility] Comment on above: Order Comment: Speci men Type: BLOOD SPECIMENOrdering Facility: [facility] Address: [address] [place] [address] Performed By: #### 5 7021-8 ####[facility] [id number] [place] [address] [place] Lymphocytes/100 WBC (Bld) 14.9 % Normal [facility] Comment on above: Order Comment: Speci men Type: BLOOD SPECIMENOrdering Facility: [facility] Address: [address] [place] [address] Performed By: #### 5 7021-8 ####[facility] [id number] [place] [address] [place] MCH (RBC) [Entitic mass] 30.1 pg Normal 26.0-34.0 [facility] Comment on above: Order Comment: Speci men Type: BLOOD SPECIMENOrdering Facility: [facility] Address: [address] [place] [address] Performed By: #### 5 7021-8 ####[facility] LABORATORYIA [id number] [place] [address] [place] MCHC (RBC) [Mass/Vol] 33.1 g/dL Normal 30.5-36.0 [facility] Comment on above: Order Comment: Speci men Type: BLOOD SPECIMENOrdering Facility: [facility] Address: [address] [place] [address] Performed By: #### 5 7021-8 ####[facility] LABORATORYCLIA [id number] [place] [id number] [place] MCV (RBC) [Entitic vol] 90.7 fL Normal 80.0-100.0 [facility] Comment on above: Order Comment: Speci men Type: BLOOD SPECIMENOrdering Facility: [facility] Address: [address] [place] [address] Performed By: #### 5 7021-8 ####[facility] [id number] [place] [id number] [place] Monocytes (Bld) [#/Vol] 0.39 10*3/uL Normal <0.87 [facility] Comment on above: Order Comment: Speci men Type: BLOOD SPECIMENOrdering Facility: [facility] Address: [address] [place] [address] Performed By: #### 5 7021-8 ####[facility] LABORATORYIA [id number] [place] [address] [place] Monocytes/100 WBC (Bld) 4.5 % Normal [facility] Comment on above: Order Comment: Speci men Type: BLOOD SPECIMENOrdering Facility: [facility] Address: [address] [place] [address] Performed By: #### 5 7021-8 ####[facility] LABORATORYIA [id number] [place] [id number] [place] Neutrophils (Bld) [#/Vol] 6.91 10*3/uL Normal 1.45-7.50 [facility] Comment on above: Order Comment: Speci men Type: BLOOD SPECIMENOrdering Facility: [facility] Address: [address] [place] [address] Performed By: #### 5 7021-8 ####[facility] LABORATORYCLIA [id number] [place] [id number] [place] Neutrophils/100 WBC (Bld) 79.3 % Normal [facility] Comment on above: Order Comment: Speci men Type: BLOOD SPECIMENOrdering Facility: [facility] Address: [address] [place] [address] Performed By: #### 5 7021-8 ####[facility] LABORATORYCLIA [id number] [place] [address] [place] Nucleated RBC (Bld) [#/Vol] 10*3/uL Normal <0.01 [facility] Comment on above: Order Comment: Speci men Type: BLOOD SPECIMENOrdering Facility: [facility] Address: [address] [place] [address] Performed By: #### 5 7021-8 ####[facility] [id number] [place] [id number] [place] Nucleated RBC/100 WBC (Bld) [Ratio] 0.0 /100 WBC Normal [facility] Comment on above: Order Comment: Speci men Type: BLOOD SPECIMENOrdering Facility: [facility] Address: [address] [place] [address] Performed By: #### 5 7021-8 ####[facility] LABORATORYIA [id number] [place] [id number] [place] Platelet mean volume (Bld) [Entitic vol] 10.5 fL Normal 9.0-12.7 [facility] Comment on above: Order Comment: Speci men Type: BLOOD SPECIMENOrdering Facility: [facility] Address: [address] [place] [address] Performed By: #### 5 7021-8 ####[facility] LABORATORYIA [id number] [place] [address] [place] Platelets (Bld) [#/Vol] 328 10*3/uL Normal 150-400 [facility] Comment on above: Order Comment: Speci men Type: BLOOD SPECIMENOrdering Facility: [facility] Address: [address] [place] [address] Performed By: #### 5 7021-8 ####[facility] [id number] [place] [address] [place] RBC (Bld) [#/Vol] 3.99 10*6/uL Normal 3.90-5.20 [facility] Comment on above: Order Comment: Speci men Type: BLOOD SPECIMENOrdering Facility: [facility] Address: [address] [place] [address] Performed By: #### 5 7021-8 ####[facility]ITAL[facility] [id number] [place] [address] [place] WBC (Bld) [#/Vol] 8.71 10*3/uL Normal 3.70-11.00 [facility] Comment on above: Order Comment: Speci men Type: BLOOD SPECIMENOrdering Facility: [facility] Address: [address] [place], [place] [address] Performed By: #### 5 7021-8 ####[facility] [id number] [place] [address] [place] CNOVon 08-04-2023 CNOV Normal [facility] CNPNon 08-04-2023 CNPN Normal [facility] CONSULTon 08-04-2023 CONSULT Normal [facility] CT ABD/PEL W IVCONon 024 CT ABD/PEL W IVCON Normal [facility] BRAIN WO IVCONon 08-04-[address] BRAIN WO IVCON Normal [facility] Comprehensive metabolic 2000 panelon 08-04-2023 Albumin [Mass/Vol] 3.8 g/dL Low 3.9-4.9 [facility] Comment on above: Order Comment: Speci men Type: BLOOD SPECIMENOrdering Facility: [facility] Address: [address] [place] [address] Performed By: #### 2 4323-8, 47794-5, 3040-3 ####[facility] LABORATORYCLIA [id number] [facility] [place] [address] [place] ALP [Catalytic activity/Vol] 76 U/L Normal 34-123 [facility] Comment on above: Order Comment: Speci men Type: BLOOD SPECIMENOrdering Facility: [facility] Address: [address] [place] [address] Performed By: #### 2 4323-8, 22240-0, 0-3 ####[facility] LABORATORYCLIA [id number] [place] [address] [place] ALT [Catalytic activity/Vol] Normal [facility] Comment on above: Order Comment: Speci men Type: BLOOD SPECIMENOrdering Facility: [facility] Address: [address] [place] [address] Result Comment: Unab le to assay due to interference from hemolysis. Suggest reorder as clinically indicated. Performed By: #### 2 4323-8, , 3039-3 ####[facility] [id number] [facility] [place] [address] [place] Anion gap [Moles/Vol] 10 mmol/L Normal 8-15 [facility] Comment on above: Order Comment: Speci men Type: BLOOD SPECIMENOrdering Facility: [facility] Address: [address] [place] [address] Performed By: #### 2 4323-8, , 3039-3 ####[facility] LABORATORYIA [id number] [facility] [place] [address] [place] AST [Catalytic activity/Vol] Normal [facility] Comment on above: Order Comment: Speci men Type: BLOOD SPECIMENOrdering Facility: [facility] Address: [address] [place] [address] Result Comment: Unab le to assay due to interference from hemolysis. Suggest reorder as clinically indicated. Performed By: #### 2 4323-8, 32673-5, 0-3 ####[facility] LABORATORYCLIA [id number] [place] [address] [place] Bilirubin [Mass/Vol] 0.3 mg/dL Normal 0.2-1.3 [facility] Comment on above: Order Comment: Speci men Type: BLOOD SPECIMENOrdering Facility: [facility] Address: [address] [place] [address] Performed By: #### 2 4323-8, , 0-3 ####[facility] LABORATORYCLIA [id number] [place] [address] [place] Calcium [Mass/Vol] 8.7 mg/dL Normal 8.5-10.2 [facility] Comment on above: Order Comment: Speci men Type: BLOOD SPECIMENOrdering Facility: [facility] Address: [address] [place] [address] Performed By: #### 2 4323-8, , 0-3 ####[facility] LABORATORYCLIA [id number] [place] [address] [place] Chloride [Moles/Vol] 106 mmol/L Normal 98-107 [facility] Comment on above: Order Comment: Speci men Type: BLOOD SPECIMENOrdering Facility: [facility] Address: [address] [place] [address] Performed By: #### 2 4323-8, , 03 ####[facility] LABORATORYCLIA [id number] [place] [address] [place] CO2 [Moles/Vol] 23 mmol/L Normal 22-30 [facility] Comment on above: Order Comment: Speci men Type: BLOOD SPECIMENOrdering Facility: [facility] Address: [address] [place], [place] [address] Performed By: #### 2 4323-8, , 0-3 ####[facility] LABORATORYCLIA [id number] [place] [address] [place] Creatinine [Mass/Vol] 0.71 mg/dL Normal 0.58-0.96 [facility] Comment on above: Order Comment: Speci men Type: BLOOD SPECIMENOrdering Facility: [facility] Address: [address] [place] [id number] Performed By: #### 2 4323-8, 31171-1, 3040-3 ####[facility] [id number] [place] [address] [place] Creatinine and Glomerular filtration rate.predicted panel (S/P/Bld) 115 mL/min/1.73m??? Normal >=60 [facility] Comment on above: Order Comment: Geraldo marrero Type: BLOOD SPECIMENOrdering Facility: [facility] Address: [address] [place] [address] Result Comment: Jessica mated Glomerular Filtration Rate [...] actual GFR. Performed By: #### 2 4323-8, 94939-0, 3040-3 ####[facility] LABORATORYIA [id number] [facility] [place] [address] [place] Glucose [Mass/Vol] 82 mg/dL Normal 74-99 [facility] Comment on above: Order Comment: Geraldo marrero Type: BLOOD SPECIMENOrdering Facility: [facility] Address: [address] [place] [address] Result Comment: The [place] [employer] (ADA) provides guidance for cutoff [...] Standards of Medical Care in Diabetes 2016, [place] [employer]. Diabetes Care. 2016.39(Suppl 1). Performed By: #### 2 4323-8, 69883-4, 0-3 ####[facility] LABORATORYCLIA [id number] [place] [address] [place] Potassium [Moles/Vol] 4.3 mmol/L Normal 3.7-5.1 [facility] Comment on above: Order Comment: Speci men Type: BLOOD SPECIMENOrdering Facility: [facility] Address: [address] [place] [address] Performed By: #### 2 4323-8, , 0-3 ####[facility] [id number] [place] [address] [place] Protein [Mass/Vol] 6.8 g/dL Normal 6.3-8.0 [facility] Comment on above: Order Comment: Speci men Type: BLOOD SPECIMENOrdering Facility: [facility] Address: [address] [place] [address] Performed By: #### 2 4323-8, , 3039-3 ####[facility] [id number] [place] [address] [place] Sodium [Moles/Vol] 139 mmol/L Normal 136-144 [facility] Comment on above: Order Comment: Speci men Type: BLOOD SPECIMENOrdering Facility: [facility] Address: [address] [place] [address] Performed By: #### 2 4323-8, , 0-3 ####[facility]ORYCLIA [id number] [place] [address] [place] Urea nitrogen [Mass/Vol] 6 mg/dL Low 7-21 [facility] Comment on above: Order Comment: Speci men Type: BLOOD SPECIMENOrdering Facility: [facility] Address: [address] [place] [address] Performed By: #### 2 4323-8, 93719-8, 0-3 ####[facility]ORYCLIA [id number] [facility] [place] [address] [place] ECG COMPLETEon 08-04-2023 ECG COMPLETE Normal [facility] ED NOTEon 08-04-2023 ED NOTE HNO ID: [id number] Author: ANAM NAILS, DEE Service: Emergency Medicine Author Type: Registered Nurse Type: ED Notes Filed: 08/04/2023 14:44 Note Text: Pt remains unable to provide urine sample at this time. Normal [facility] ED NOTE HNO ID: [id number] Author: ANAM NAILS, DEE Service: Emergency Medicine Author Type: Registered Nurse Type: ED Notes Filed: 08/04/2023 14:43 Note Text: Pt unable to provide urine sample at this time. [facility] ED NOTE HNO ID: [id number] Author: CORIE BILLINGSLEY Medic Service: ? Author Type: Geodetic Engineer and Instrument Tester Type: ED Notes Filed: 08/04/2023 09:52 Note Text: Pt also states she fell yesterday and LOC noted. Pt had had multiple episodes of diarrhea as well. Normal [facility] ED PROV NOTEon 08-04-2023 ED PROV NOTE Normal [facility] HIGH SENSITIVITY TROPONIN T (INITIAL)on 08-04-2023 Troponin T.cardiac High sensitivity method [Mass/Vol] <6 Normal <12 [facility] Comment on above: Order Comment: Geraldo marrero Type: BLOOD SPECIMENOrdering Facility: [facility] Address: [address] [place] [address] Result Comment: When assessing risk for acute [...] 30 day MACE. Performed By: #### L [id number] ####[facility]ORYCLIA [id number] [facility] [place] [address] [place] HIGH SENSITIVITY TROPONIN T (SECOND)on 08-04-2023 Troponin T.cardiac High sensitivity method [Mass/Vol] <6 Normal <12 [facility] Comment on above: Order Comment: Speci men Type: BLOOD SPECIMENOrdering Facility: [facility] Address: [address] [place] [address] Result Comment: When assessing risk for acute [...] 30 day MACE. Performed By: #### L [id number] ####[facility]ORYCLIA [id number] [place] [address] [place] HISTORY PHYSICALon 4 HISTORY PHYSICAL Normal [facility] pital Lipase SerPl-cCncon 08-04-19 24 Lipase [Catalytic activity/Vol] 52 U/L Normal 16-61 [facility] Comment on above: Order Comment: Geraldo marrero Type: BLOOD SPECIMENOrdering Facility: [facility] Address: [address] [place], [place] [address] Performed By: #### 2 4323-8, 08093-0, 0-3 ####[facility]ORYCLIA [id number] [place] [address] [place] Magnesium SerPl-mCncon 08-03 Magnesium [Mass/Vol] 1.9 mg/dL Normal 1.7-2.3 [facility] Comment on above: Order Comment: Lyssai elida Type: BLOOD SPECIMENOrdering Facility: [facility] Address: [address] [place], [place] [address] Performed By: #### 2 4323-8, 00276-4, 3040-3 ####[facility]ORYCLIA [id number] [place] [address] [place] SEPSIS LACTATE W/ REFLEX (IN ITIAL)on 08-04-2023 Lactate [Moles/Vol] 1.5 mmol/L Normal 0.0-2.0 [facility] Comment on above: Order Comment: Lyssai men Type: BLOOD SPECIMENOrdering Facility: [facility] Address: [address] [place], [place] [address] Performed By: #### S LACTR ####[facility] [id number] [place] [address] [place] Urinalysis complete panel (U )on 08-04-2023 Bilirubin Ql (U) Negative Normal Negative [facility] Comment on above: Order Comment: Speci men Type: URINE SPECIMENOrdering Facility: [facility] Address: [address] [place] [address] Performed By: #### 2 4356-8 ####[facility] [id number] [place] [address] [place] Clarity (Unsp spec) Clear Normal Clear [facility] Comment on above: Order Comment: Speci men Type: URINE SPECIMENOrdering Facility: [facility] Address: [address] [place] [address] Performed By: #### 2 4356-8 ####[facility] [id number] [place] [address] [place] Color (U) Yellow Normal Yellow [facility] Comment on above: Order Comment: Speci men Type: URINE SPECIMENOrdering Facility: [facility] Address: [address] [place] [address] Performed By: #### 2 4356-8 ####[facility] [id number] [place] [address] [place] Glucose Test strip (U) [Mass/Vol] Negative Normal Trace, Negative [facility] Comment on above: Order Comment: Speci men Type: URINE SPECIMENOrdering Facility: [facility] Address: [address] [place] [address] Performed By: #### 2 4356-8 ####[facility] [id number] [place] [address] [place] Hemoglobin Ql (U) Negative Normal Negative, Trace [facility] Comment on above: Order Comment: Speci men Type: URINE SPECIMENOrdering Facility: [facility] Address: [address] [place] [address] Performed By: #### 2 4356-8 ####[facility] [id number] [place] [address] [place] Ketones Ql (U) Negative Normal Negative, Trace [facility] Comment on above: Order Comment: Speci men Type: URINE SPECIMENOrdering Facility: [facility] Address: [address] [place] [address] Performed By: #### 2 4356-8 ####[facility] [id number] [place], [place] [id number] [address] [place] Leukocyte esterase Test strip Ql (U) Negative Normal Negative, 25 Patito/uL [facility] Comment on above: Order Comment: Speci men Type: URINE SPECIMENOrdering Facility: [facility] Address: [address] [place] [address] Performed By: #### 2 4356-8 ####[facility] [id number] [place] [address] [place] Nitrite Ql (U) Negative Normal Negative [facility] Comment on above: Order Comment: Speci men Type: URINE SPECIMENOrdering Facility: [facility] Address: [address] [place] [address] Performed By: #### 2 4356-8 ####[facility] [id number] [place] [address] [place] pH (U) 7.5 [pH] Normal 5.0-8.0 [facility] Comment on above: Order Comment: Speci men Type: URINE SPECIMENOrdering Facility: [facility] Address: [address] [place] [address] Performed By: #### 2 4356-8 ####[facility] [id number] [place] [address] [place] Protein (U) [Mass/Vol] Trace Normal Trace, Negative [facility] Comment on above: Order Comment: Speci men Type: URINE SPECIMENOrdering Facility: [facility] Address: [address] [place] [address] Performed By: #### 2 4356-8 ####[facility]ORATORYIA [id number] [place] [id number] [place] RBC LM.HPF (Urine sed) [#/Area] 0-3 /HPF Normal 0-3 /HPF [facility] Comment on above: Order Comment: Speci men Type: URINE SPECIMENOrdering Facility: [facility] Address: [address] [place] [address] Performed By: #### 2 4356-8 ####[facility] [id number] [place] [address] [place] Specific gravity (U) [Rel density] <1.005 Low 1.005-1.030 [facility] Comment on above: Order Comment: Speci men Type: URINE SPECIMENOrdering Facility: [facility] Address: [address] [place] [address] Performed By: #### 2 4356-8 ####[facility] [id number] [address] [place] Urobilinogen Ql (U) Normal Normal Normal [facility] Comment on above: Order Comment: Speci men Type: URINE SPECIMENOrdering Facility: [facility] Address: [address] [place] [address] Performed By: #### 2 4356-8 ####[facility] [id number] [place] [address] [place] WBC LM.HPF (Urine sed) [#/Area] 0-5 /HPF Normal 0-5 /HPF [facility] Comment on above: Order Comment: Speci men Type: URINE SPECIMENOrdering Facility: [facility] Address: [address] [place] [address] Performed By: #### 2 4356-8 ####[facility] [id number] [place] [address] [place] XR CHEST 1V FRONTAL PORTon 0 08-04-2023 XR CHEST 1V FRONTAL PORT Normal [facility] Activated partial thrombopla stin time (aPTT) in platelet poor plasma by coagulation aOrdered By: Jeramy Cunningham on 07-31-2023 aPTT Coag (PPP) [Time] 27.0 s 25.1-36.5 [facility] Comment on above: A hematocrit value g reater than 55% may lead to inaccurate results in coagulation testing. Patients having hematocrit values >55% require a special collection tube for coagulation studies. Please contact the laboratory at [phone] for redraw instructions. Alanine aminotransferase [En zymatic activity/volume] in Serum or PlasmaOrdered By: Jeramy Cunningham on 07-31-2023 ALT [Catalytic activity/Vol] 29 U/L Normal 7-52 [facility] Comment on above: Performed By: #### M G, LIPASE, CMP, CBC, HEPATIC #### [facility] [address] [place] [address] Albumin [Mass/volume] in Ser um or Plasma by Bromocresol green (BCG) dye binding methoOrdered By: Jeramy Cunningham on 07-31-2023 Albumin BCG dye [Mass/Vol] 4.0 g/dL 3.5-5.7 [facility] Alkaline phosphatase [Enzyma tic activity/volume] in Serum or PlasmaOrdered By: Jeramy Cunningham on 07-31-2023 ALP [Catalytic activity/Vol] 58 U/L Normal 34-104 [facility] Comment on above: Performed By: #### M G, LIPASE, CMP, CBC, HEPATIC #### [facility] [address] [place] [address] [place] Aspartate aminotransferase [ Enzymatic activity/volume] in Serum or PlasmaOrdered By: Jeramy Cunningham on 07-31-2023 AST [Catalytic activity/Vol] 34 U/L Normal 13-39 [facility] Comment on above: Performed By: #### M G, LIPASE, CMP, CBC, HEPATIC #### [facility] [address] [place] [address] [place] Automated basophil %Ordered By: Jeramy Cunningham on 07-31-2023 Basophils/100 WBC (Bld) 0.6 % Normal . [facility] Comment on above: Performed By: #### M G, LIPASE, CMP, CBC, HEPATIC #### [address] Automated basophil countOrde red By: Jeramy Cunningham on 07-31-2023 Basophils (Bld) [#/Vol] 0.0 10*3/uL Normal 0.0-0.2 [facility] Comment on above: Result Comment: PERF ORMED BY: [place] [address] PATHOLOGIST MOLDER OPERATOR BAUTISTA BAKER M.D. Performed By: #### M G, LIPASE, CMP, CBC, HEPATIC #### [address] Automated blood monocyte cou ntOrdered By: Jeramy Cunningham on 07-31-2023 Monocytes (Bld) [#/Vol] 0.2 10*3/uL Normal 0.0-0.8 [facility] Comment on above: Performed By: #### M G, LIPASE, CMP, CBC, HEPATIC #### [address] Automated eosinophil %Ordere d By: Jeramy Cunningham on 07-31-2023 Eosinophils/100 WBC (Bld) 0.2 % Normal . [facility] Comment on above: Performed By: #### M G, LIPASE, CMP, CBC, HEPATIC #### [address] Automated eosinophil countOr dered By: Jeramy Cunningham on 07-31-2023 Eosinophils (Bld) [#/Vol] 0.0 10*3/uL Normal 0.0-0.45 [facility] Comment on above: Performed By: #### M G, LIPASE, CMP, CBC, HEPATIC #### [address] Automated monocyte %Ordered By: Jeramy Cunningham on 07-31-2023 Monocytes/100 WBC (Bld) 3.1 % Normal . [facility] Comment on above: Performed By: #### M G, LIPASE, CMP, CBC, HEPATIC #### [address] Automated neutrophil %Ordere d By: Jeramy Cunningham on 07-31-2023 Neutrophils/100 WBC (Bld) 84.9 % Normal . [facility] Comment on above: Performed By: #### M G, LIPASE, CMP, CBC, HEPATIC #### [facility] [address] [place] [id number] [facility] Basic Metabolic Panelon 07-16 Creatinine Clr Calc Pharmacy 120.10 Normal [facility] Comment on above: Performed By: #### M G, LIPASE, CMP, CBC, HEPATIC #### [facility] [address] GFR/1.73 sq M.predicted MDRD (S/P/Bld) [Vol rate/Area] mL/min/{1.73_m2} Normal [facility] Comment on above: Performed By: #### M G, LIPASE, CMP, CBC, HEPATIC #### [facility] [address] [place] [address] Bilirubin Test strip Ql (U)O rdered By: Jeramy Cunningham on 07-31-2023 Bilirubin Ql (U) Negative Negative [facility] Bilirubin.direct [Mass/volum e] in Serum or PlasmaOrdered By: Jeramy Cunningham on 07-31-2023 Bilirubin.direct [Mass/Vol] 0.10 mg/dL 0.03-0.18 [facility] Bilirubin.total [Mass/volume ] in Serum or PlasmaOrdered By: Jeramy Cunningham on 07-31-2023 Bilirubin [Mass/Vol] 0.4 mg/dL Normal 0.3-1.0 [facility] Comment on above: Performed By: #### M G, LIPASE, CMP, CBC, HEPATIC #### [facility] [address] abdomen pelvis w conon CT abdomen pelvis w [facility] [place] [address] [place] [address] CT Scan Report Signed Patient: Abbey Garcia MR#: [id number] : 1990 Acct:[id number] Age/Sex: 33 / F ADM Date: 07/31/23 Loc: ER Room: Type: [facility] ER Attending Dr: Copies to: Jeramy [...] Jason Palomo M.D.07/31/2023 12:28 PM Dictation Location: [place] [address] Transcribed By: [facility] 07/31/23 1228 Dictated By: Jason Palomo DO 07/31/23 1223 Signed By: 07/31/23 1228 Normal [facility] Calcium [Mass/volume] in Ser um or PlasmaOrdered By: Jeramy Cunningham on 07-31-2023 Calcium [Mass/Vol] 8.5 mg/dL Low 8.6-10.3 [facility] Comment on above: Performed By: #### M G, LIPASE, CMP, CBC, HEPATIC #### [address] Carbon dioxide, total [Moles /volume] in Serum or PlasmaOrdered By: Jeramy Cunningham on 07-31-2023 CO2 [Moles/Vol] 26.1 mmol/L Normal 21.0-31.[address] [facility] Comment on above: Performed By: #### M G, LIPASE, CMP, CBC, HEPATIC #### [address] Chloride [Moles/volume] in S elder or PlasmaOrdered By: Jeramy Cunningham on 07-31-2023 Chloride [Moles/Vol] 107 mmol/L Normal 98-107 [facility] Comment on above: Performed By: #### M G, LIPASE, CMP, CBC, HEPATIC #### [address] Color of Urine by AutoOrdere d By: Jeramy Cunningham on 07-31-2023 Color (U) Colorless Normal Yellow [facility] Comment on above: Order Comment: Name Collection Type:: Clean-Voided Midstream Performed By: #### M G, LIPASE, CMP, CBC, HEPATIC #### [address] Complete Blood Count Auto Di ffon 07-31-2023 Mean Corpuscular HGB Conc 33.8 g/dL Normal 32.0-35.0 [facility] Comment on above: Performed By: #### M G, LIPASE, CMP, CBC, HEPATIC #### [place] [address] [place] Monocytes/100 WBC (Bld) 14.62 % Normal 0.00-20.00 [facility] Comment on above: Performed By: #### M G, LIPASE, CMP, CBC, HEPATIC #### [place] [address] [place] NRBC% 0.1 /100{WBC} Normal 0-0.5 [facility] Comment on above: Performed By: #### M G, LIPASE, CMP, CBC, HEPATIC #### [address] Creatinine [Mass/volume] in Serum or PlasmaOrdered By: Jeramy Cunningham on 07-31-2023 Creatinine [Mass/Vol] 0.70 mg/dL Normal 0.60-1.20 [facility] Comment on above: Performed By: #### M G, LIPASE, CMP, CBC, HEPATIC #### [facility] [address] Erythrocyte distribution wid th [Ratio] by Automated countOrdered By: Jeramy Cunningham on 07-31-2023 Erythrocyte distribution width (RBC) [Ratio] 14.2 % Normal 11.9-15.3 [facility] Comment on above: Performed By: #### M G, LIPASE, CMP, CBC, HEPATIC #### [facility] [address] Erythrocytes [#/volume] in B lood by Automated countOrdered By: Jeramy Cunningham on 07-31-2023 RBC (Bld) [#/Vol] 3.75 10*6/uL Normal 3.60-5.00 [facility] Comment on above: Performed By: #### M G, LIPASE, CMP, CBC, HEPATIC #### [facility] [address] Glucose [Mass/volume] in Ser um or PlasmaOrdered By: Jeramy Cunningham on 07-31-2023 Glucose [Mass/Vol] 91 mg/dL Normal 70-100 [facility] Comment on above: ADA recommended refe rence rangeRandom Glucose Reference Range is dependent on time and content of last meal. Glucose of more than 200 mg/dL in a nonstressed, ambulatory subject supports the diagnosis of Diabetes Mellitus. Result Comment: [place] om Glucose Reference Range is dependent on time and content of last meal. Glucose of more than 200 mg/dL in a nonstressed, ambulatory subject supports the diagnosis of Diabetes Mellitus. ADA recommended reference range Performed By: #### M G, LIPASE, CMP, CBC, HEPATIC #### [facility] [address] Glucose [Mass/volume] in Uri ne by Test stripOrdered By: Jeramy Cunningham on 07-31-2023 Glucose Test strip (U) [Mass/Vol] Normal mg/dL Normal [facility] HCG ( test) IA.rapi d Ql (U)Ordered By: Jeramy Cunningham on 07-31-2023 HCG ( test) Ql (U) Negative [facility] HCG,Urineon 07-31-2023 Beta HCG ( test) Ql (U) Negative Normal [facility] Comment on above: Order Comment: Name Collection Type:: Clean-Voided Midstream Result Comment: PERF ORMED BY: [place] [address] PATHOLOGIST MOLDER OPERATOR BAUTISTA BAKER M.D. Performed By: #### M G, LIPASE, CMP, CBC, HEPATIC #### [address] Hematocrit [Volume Fraction] of Blood by Automated countOrdered By: Jeramy Cunningham on 07-31-2023 Hematocrit (Bld) [Volume fraction] 33.2 % Low 34.0-46.4 [facility] Comment on above: Performed By: #### M G, LIPASE, CMP, CBC, HEPATIC #### [address] Hemoglobin Test strip Ql (U) Ordered By: Jeramy Cunningham on 07-31-2023 Hemoglobin Ql (U) Negative Negative [facility] Hemoglobin [Mass/volume] in BloodOrdered By: Jeramy Cunningham on 07-31-2023 Hemoglobin (Bld) [Mass/Vol] 11.2 g/dL Low 11.8-15.4 [facility] Comment on above: Performed By: #### M G, LIPASE, CMP, CBC, HEPATIC #### [facility] [address] [place] [address] Hepatic Panelon 07-31-2023 Albumin [Mass/Vol] 4.0 g/dL Normal 3.5-5.7 [facility] Comment on above: Performed By: #### M G, LIPASE, CMP, CBC, HEPATIC #### [address] Bilirubin,Indirect 0.3 mg/dL Normal [facility] Comment on above: Performed By: #### M G, LIPASE, CMP, CBC, HEPATIC #### [facility] [address] Bilirubin.indirect [Mass/Vol] 0.10 mg/dL Normal 0.03-0.18 [facility] Comment on above: Performed By: #### M G, LIPASE, CMP, CBC, HEPATIC #### [facility] [address] [place] [address] [place] INR in Platelet poor plasma by Coagulation assayOrdered By: Jeramy Cunningham on 07-31-2023 INR Coag (PPP) [Relative time] 1.1 {INR} Normal [facility] Comment on above: INR Therapeutic Rang e [...] valves: 3 - 4.5 Performed By: #### M G, LIPASE, CMP, CBC, HEPATIC #### [facility] [address] [place] [address] [place] Ketones [Presence] in Urine by Test stripOrdered By: Jeramy Cunningham on 07-31-2023 Ketones Ql (U) Negative Normal Negative [facility] Comment on above: Order Comment: Name Collection Type:: Clean-Voided Midstream Performed By: #### M G, LIPASE, CMP, CBC, HEPATIC #### [facility] [address] Leukocyte esterase [Presence ] in Urine by Test stripOrdered By: Jeramy Cunningham on 07-31-2023 Leukocyte esterase Test strip Ql (U) Negative Normal Negative [facility] Comment on above: Order Comment: Name Collection Type:: Clean-Voided Midstream Performed By: #### M G, LIPASE, CMP, CBC, HEPATIC #### [facility] [address] [place] [address] Leukocytes [#/volume] correc darvin for nucleated erythrocytes in Blood by Automated counOrdered By: Jeramy Cunningham on 07-31-2023 WBC corrected for nucl RBC Auto (Bld) [#/Vol] 7.7 10*3/uL 3.8-11.6 [facility] Leukocytes [#/volume] in Blo od by Automated countOrdered By: Jeramy Cunningham on 07-31-2023 WBC (Bld) [#/Vol] 7.7 10*3/uL Normal 3.8-11.6 [facility] Comment on above: Performed By: #### M G, LIPASE, CMP, CBC, HEPATIC #### [facility] [address] [place] [address] Lipase [Enzymatic activity/v olume] in Serum or PlasmaOrdered By: Jeramy Cunningham on 07-31-2023 Lipase [Catalytic activity/Vol] 36.0 U/L Normal 11.0-82.0 [facility] Comment on above: Result Comment: PERF ORMED BY: [place] [address] PATHOLOGIST MOLDER OPERATOR BAUTISTA BAKER M.D. Performed By: #### M G, LIPASE, CMP, CBC, HEPATIC #### [facility] [address] [place] [address] Lymphocytes [#/volume] in Bl ood by Automated countOrdered By: Jeramy Cunningham on 07-31-2023 Lymphocytes (Bld) [#/Vol] 0.9 10*3/uL Low 1.00-4.8 [facility] Comment on above: Performed By: #### M G, LIPASE, CMP, CBC, HEPATIC #### [facility] [address] [place] [address] [place] Lymphocytes/100 leukocytes i n Blood by Automated countOrdered By: Jeramy Cunningham on 07-31-2023 Lymphocytes/100 WBC (Bld) 11.2 % Normal . [facility] Comment on above: Performed By: #### M G, LIPASE, CMP, CBC, HEPATIC #### [facility] [address] MCH [Entitic mass] by Automa darvin countOrdered By: Jeramy Cunningham on 07-31-2023 MCH (RBC) [Entitic mass] 29.9 pg Normal 24.7-34.3 [facility] Comment on above: Performed By: #### M G, LIPASE, CMP, CBC, HEPATIC #### [facility] [address] [place] [address] MCHC Auto (RBC) [Mass/Vol]Or dered By: Jeramy Cunningham on 07-31-2023 MCHC (RBC) [Mass/Vol] 33.8 g/dL 32.0-35.0 [facility] MCV [Entitic volume] by Auto mated countOrdered By: Jeramy Cunningham on 07-31-2023 MCV (RBC) [Entitic vol] 88.6 fL Normal 80-100 [facility] Comment on above: Performed By: #### M G, LIPASE, CMP, CBC, HEPATIC #### [facility] [address] [place] [address] Monocyte distribution width [Entitic volume] in Blood by AutomatedOrdered By: Jeramy Cunningham on 07-31-2023 Monocyte distribution width Auto (Bld) [Entitic vol] 14.62 % 0.00-20.00 [facility] Neutrophils [#/volume] in Bl ood by Automated countOrdered By: Jeramy Cunningham on 07-31-2023 Neutrophils (Bld) [#/Vol] 6.5 10*3/uL Normal 1.8-7.7 [facility] Comment on above: Performed By: #### M G, LIPASE, CMP, CBC, HEPATIC #### [facility] [address] [place] [address] Nitrite Test strip Ql (U)Ord ered By: Jeramy Cunningham on 07-31-2023 Nitrite Ql (U) Negative Negative [facility] No Panel InformationOrdered By: Jeramy Cunningham on 07-31-2023 Estimated GFR (CKD-EPI) > 60.0 mL/Min [facility] Creatinine Clearance (Chem 120.10 [facility] Nucleated erythrocytes [Pres ence] in Blood by Automated countOrdered By: Jeramy Cunningham on 07-31-2023 Nucleated RBC Auto Ql (Bld) 0.1 /100{WBC} 0-0.5 [facility] Partial Thromboplastin Timeo n 07-31-2023 aPTT Coag (Bld) [Time] 27.0 s Normal 25.1-36.5 [facility] Comment on above: Result Comment: A he matocrit value greater than 55% may lead to inaccurate results in coagulation testing. Patients having hematocrit values >55% require a special collection tube for coagulation studies. Please contact the laboratory at [phone] for redraw instructions. PERFORMED BY: [address] [place] [address] PATHOLOGIST MOLDER OPERATOR BAUTISTA BAKER M.D. Performed By: #### M G, LIPASE, CMP, CBC, HEPATIC #### [facility] [address] [place] [address] [place] Platelet mean volume [Entiti c volume] in Blood by Automated countOrdered By: Jeramy Cunningham on 07-31-2023 Platelet mean volume (Bld) [Entitic vol] 8.5 fL Normal 6.3-10.7 [facility] Comment on above: Performed By: #### M G, LIPASE, CMP, CBC, HEPATIC #### [facility] [address] [place] [address] [place] Platelets [#/volume] in Bloo d by Automated countOrdered By: Jeramy Cunningham on 07-31-2023 Platelets (Bld) [#/Vol] 276 10*3/uL Normal 150-450 [facility] Comment on above: Performed By: #### M G, LIPASE, CMP, CBC, HEPATIC #### [facility] [address] [place] [address] [place] Potassium [Moles/volume] in Serum or PlasmaOrdered By: Jeramy Cunningham on 07-31-2023 Potassium [Moles/Vol] 3.8 mmol/L Normal 3.5-5.1 [facility] Comment on above: Performed By: #### M G, LIPASE, CMP, CBC, HEPATIC #### [address] Protein Test strip (U) [Mass /Vol]Ordered By: Jeramy Cunningham on 07-31-2023 Protein (U) [Mass/Vol] Negative Negative [facility] Protein [Mass/volume] in Ser um or PlasmaOrdered By: Jeramy Cunningham on 07-31-2023 Protein [Mass/Vol] 6.7 g/dL Normal 6.4-8.9 [facility] Comment on above: Performed By: #### M G, LIPASE, CMP, CBC, HEPATIC #### [address] Prothrombin time (PT)Ordered By: Jeramy Cunningham on 07-31-2023 PT Coag (PPP) [Time] 12.3 s Normal 9.0-12.9 [facility] Comment on above: A hematocrit value g reater than 55% may lead to inaccurate results in coagulation testing. Patients having hematocrit values >55% require a special collection tube for coagulation studies. Please contact the laboratory at [phone] for redraw instructions. Result Comment: A he matocrit value greater than 55% may lead to inaccurate results in coagulation testing. Patients having hematocrit values >55% require a special collection tube for coagulation studies. Please contact the laboratory at [phone] for redraw instructions. Performed By: #### M G, LIPASE, CMP, CBC, HEPATIC #### [address] Serum globulin measurement b y calculation (mass/volume)Ordered By: Jeramy Cunningham on 07-31-2023 Globulin (S) [Mass/Vol] 2.7 g/dL Normal [facility] Comment on above: Performed By: #### M G, LIPASE, CMP, CBC, HEPATIC #### [address] Serum or plasma albumin/glob ulin mass ratioOrdered By: Jeramy Cunningham on 07-31-2023 Albumin/Globulin [Mass ratio] 1.5 {ratio} Normal [facility] Comment on above: Performed By: #### M G, LIPASE, CMP, CBC, HEPATIC #### [address] Serum or plasma anion gap de terminationOrdered By: Jeramy Cunningham on 07-31-2023 Anion gap [Moles/Vol] 10.7 mmol/L Normal 6.0-15.0 [facility] Comment on above: Performed By: #### M G, LIPASE, CMP, CBC, HEPATIC #### [address] Serum or plasma non-glucuron idated bilirubin measurement (mass/volume)Ordered By: Jeramy Cunningham on 07-31-2023 Bilirubin.indirect [Mass/Vol] 0.3 mg/dL [facility] Sodium [Moles/volume] in Ser um or PlasmaOrdered By: Jeramy Cunningham on 07-31-2023 Sodium [Moles/Vol] 140 mmol/L Normal 136-145 [facility] Comment on above: Performed By: #### M G, LIPASE, CMP, CBC, HEPATIC #### [address] Specific gravity Test strip (U) [Rel density]Ordered By: Jeramy Cunningham on 07-31-2023 Specific gravity (U) [Rel density] 1.006 1.001-1.030 [facility] Urea nitrogen [Mass/volume] in Serum or PlasmaOrdered By: Jeramy Cunningham on 07-31-2023 Urea nitrogen [Mass/Vol] 16 mg/dL Normal 7-25 [facility] Comment on above: Performed By: #### M G, LIPASE, CMP, CBC, HEPATIC #### [address] Urinalysison 07-31-2023 Bilirubin,Urine Negative Normal Negative [facility] Comment on above: Order Comment: Name Collection Type:: Clean-Voided Midstream Performed By: #### M G, LIPASE, CMP, CBC, HEPATIC #### [address] Glucose Ql (U) Normal Normal Normal [facility] Comment on above: Order Comment: Name Collection Type:: Clean-Voided Midstream Performed By: #### M G, LIPASE, CMP, CBC, HEPATIC #### [address] Nitrite,Urine Negative Normal Negative [facility] Comment on above: Order Comment: Name Collection Type:: Clean-Voided Midstream Performed By: #### M G, LIPASE, CMP, CBC, HEPATIC #### [address] Occult Blood,Urine Negative Normal Negative [facility] Comment on above: Order Comment: Name Collection Type:: Clean-Voided Midstream Performed By: #### M G, LIPASE, CMP, CBC, HEPATIC #### [address] Protein,Urine Negative Normal Negative [facility] Comment on above: Order Comment: Name Collection Type:: Clean-Voided Midstream Performed By: #### M G, LIPASE, CMP, CBC, HEPATIC #### [address] Specificy [place],Urine 1.006 Normal 1.001-1.030 [facility] Comment on above: Order Comment: Name Collection Type:: Clean-Voided Midstream Performed By: #### M G, LIPASE, CMP, CBC, HEPATIC #### [address] Urobilinogen,Urine Normal Normal Normal [facility] Comment on above: Order Comment: Name Collection Type:: Clean-Voided Midstream Performed By: #### M G, LIPASE, CMP, CBC, HEPATIC #### [address] Urine appearanceOrdered By: Jeramy Cunningham on 07-31-2023 Appearance (U) Clear Normal Clear [facility] Comment on above: Order Comment: Name Collection Type:: Clean-Voided Midstream Performed By: #### M G, LIPASE, CMP, CBC, HEPATIC #### [facility] [address] [place] [id number] [facility] Urobilinogen Test strip (U) [Mass/Vol]Ordered By: Jeramy Cunningham on 07-31-2023 Urobilinogen (U) [Mass/Vol] Normal mg/dL Normal [facility] pH of Urine by Test stripOrd ered By: Jeramy Cunningham on 07-31-2023 pH (U) 8.0 [pH] Normal 5.0-9.0 [facility] Comment on above: Order Comment: Name Collection Type:: Clean-Voided Midstream Performed By: #### M G, LIPASE, CMP, CBC, HEPATIC #### [facility] [address] CBC W Auto Differential pane l (Bld)on 07-30-2023 Basophils (Bld) [#/Vol] 0.04 10*3/uL Normal <0.11 [facility] Comment on above: Order Comment: Speci men Type: BLOOD SPECIMENOrdering Facility: [facility] Address: [address] [place] [address] Performed By: #### 5 7021-8 ####[facility] LABCLIA [id number] [place] [address] [place] Basophils/100 WBC (Bld) 0.4 % Normal [facility] Comment on above: Order Comment: Speci men Type: BLOOD SPECIMENOrdering Facility: [facility] Address: [address] [place] [address] Performed By: #### 5 7021-8 ####[facility] LABCLIA [id number] [place] [address] [place] Differential cell count method Nom (Bld) Auto Normal [facility] Comment on above: Order Comment: Speci men Type: BLOOD SPECIMENOrdering Facility: [facility] Address: [address] [place] [address] Performed By: #### 5 7021-8 ####[facility] LABCLIA [id number] [place] [address] [place] Eosinophils (Bld) [#/Vol] 0.05 10*3/uL Normal <0.46 [facility] Comment on above: Order Comment: Speci men Type: BLOOD SPECIMENOrdering Facility: [facility] Address: [address] [place] [address] Performed By: #### 5 7021-8 ####[facility] LABCLIA [id number] [place] [address] [place] Eosinophils/100 WBC (Bld) 0.5 % Normal [facility] Comment on above: Order Comment: Speci men Type: BLOOD SPECIMENOrdering Facility: [facility] Address: [address] [place] [address] Performed By: #### 5 7021-8 ####[facility] LABCLIA [id number] [place] [address] [place] Erythrocyte distribution width (RBC) [Ratio] 13.0 % Normal 11.5-15.0 [facility] Comment on above: Order Comment: Speci men Type: BLOOD SPECIMENOrdering Facility: [facility] Address: [address] [place] [address] Performed By: #### 5 7021-8 ####[facility] LABCLIA [id number] [place] [address] [place] Hematocrit (Bld) [Volume fraction] 33.7 % Low 36.0-46.0 [facility] Comment on above: Order Comment: Speci men Type: BLOOD SPECIMENOrdering Facility: [facility] Address: [address] [place] [address] Performed By: #### 5 7021-8 ####[facility] LABCLIA [id number] [place] [address] [place] Hemoglobin (Bld) [Mass/Vol] 11.1 g/dL Low 11.5-15.5 [facility] Comment on above: Order Comment: Speci men Type: BLOOD SPECIMENOrdering Facility: [facility] Address: [address] [place] [address] Performed By: #### 5 7021-8 ####[facility] LABCLIA [id number] [place] [address] [place] Immature granulocytes (Bld) [#/Vol] 0.03 10*3/uL Normal <0.10 [facility] Comment on above: Order Comment: Speci men Type: BLOOD SPECIMENOrdering Facility: [facility] Address: [address] [place] [address] Performed By: #### 5 7021-8 ####[facility] LABCLIA [id number] [place] [address] [place] Immature granulocytes/100 WBC (Bld) 0.3 % Normal [facility] Comment on above: Order Comment: Speci men Type: BLOOD SPECIMENOrdering Facility: [facility] Address: [address] [place] [address] Performed By: #### 5 7021-8 ####[facility] LABCLIA [id number] [place] [address] [place] Lymphocytes (Bld) [#/Vol] 2.10 10*3/uL Normal 1.00-4.00 [facility] Comment on above: Order Comment: Speci men Type: BLOOD SPECIMENOrdering Facility: [facility] Address: [address] [place] [address] Performed By: #### 5 7021-8 ####[facility] LABCLIA [id number] [place] [address] [place] Lymphocytes/100 WBC (Bld) 22.0 % Normal [facility] Comment on above: Order Comment: Speci men Type: BLOOD SPECIMENOrdering Facility: [facility] Address: [address] [place] [address] Performed By: #### 5 7021-8 ####[facility] LABCLIA [id number] [place] [address] [place] MCH (RBC) [Entitic mass] 29.8 pg Normal 26.0-34.0 [facility] Comment on above: Order Comment: Speci men Type: BLOOD SPECIMENOrdering Facility: [facility] Address: [address] [place] [address] Performed By: #### 5 7021-8 ####[facility] LABIA [id number] [place] [address] [place] MCHC (RBC) [Mass/Vol] 32.9 g/dL Normal 30.5-36.0 [facility] Comment on above: Order Comment: Speci men Type: BLOOD SPECIMENOrdering Facility: [facility] Address: [address] [place] [address] Performed By: #### 5 7021-8 ####[facility] LABIA [id number] [place] [address] [place] MCV (RBC) [Entitic vol] 90.3 fL Normal 80.0-100.0 [facility] Comment on above: Order Comment: Speci men Type: BLOOD SPECIMENOrdering Facility: [facility] Address: [address] [place] [address] Performed By: #### 5 7021-8 ####[facility] LABIA [id number] [place] [address] [place] Monocytes (Bld) [#/Vol] 0.57 10*3/uL Normal <0.87 [facility] Comment on above: Order Comment: Speci men Type: BLOOD SPECIMENOrdering Facility: [facility] Address: [address] [place] [address] Performed By: #### 5 7021-8 ####[facility] LABCLIA [id number] [place] [address] [place] Monocytes/100 WBC (Bld) 6.0 % Normal [facility] Comment on above: Order Comment: Speci men Type: BLOOD SPECIMENOrdering Facility: [facility] Address: [address] [place] [address] Performed By: #### 5 7021-8 ####[facility] LABCLIA [id number] [place] [address] [place] Neutrophils (Bld) [#/Vol] 6.74 10*3/uL Normal 1.45-7.50 [facility] Comment on above: Order Comment: Speci men Type: BLOOD SPECIMENOrdering Facility: [facility] Address: [address] [place] [address] Performed By: #### 5 7021-8 ####[facility] LABCLIA [id number] [place] [address] [place] Neutrophils/100 WBC (Bld) 70.8 % Normal [facility] Comment on above: Order Comment: Speci men Type: BLOOD SPECIMENOrdering Facility: [facility] Address: [address] [place] [address] Performed By: #### 5 7021-8 ####[facility] LABCLIA [id number] [place] [address] [place] Nucleated RBC (Bld) [#/Vol] 10*3/uL Normal <0.01 [facility] Comment on above: Order Comment: Speci men Type: BLOOD SPECIMENOrdering Facility: [facility] Address: [address] [place] [address] Performed By: #### 5 7021-8 ####[facility] LABCLIA [id number] [place] [address] [place] Nucleated RBC/100 WBC (Bld) [Ratio] 0.0 /100 WBC Normal [facility] Comment on above: Order Comment: Speci men Type: BLOOD SPECIMENOrdering Facility: [facility] Address: [address] [place] [address] Performed By: #### 5 7021-8 ####[facility] LABCLIA [id number] [place] [address] [place] Platelet mean volume (Bld) [Entitic vol] 10.3 fL Normal 9.0-12.7 [facility] Comment on above: Order Comment: Speci men Type: BLOOD SPECIMENOrdering Facility: [facility] Address: [address] [place] [address] Performed By: #### 5 7021-8 ####[facility] LABIA [id number] [place] [address] [place] Platelets (Bld) [#/Vol] 258 10*3/uL Normal 150-400 [facility] Comment on above: Order Comment: Speci men Type: BLOOD SPECIMENOrdering Facility: [facility] Address: [address] [place] [address] Performed By: #### 5 7021-8 ####[facility] LABIA [id number] [place] [address] [place] RBC (Bld) [#/Vol] 3.73 10*6/uL Low 3.90-5.20 [facility] Comment on above: Order Comment: Speci men Type: BLOOD SPECIMENOrdering Facility: [facility] Address: [address] [place] [address] Performed By: #### 5 7021-8 ####[facility] LABIA [id number] [place] [address] [place] WBC (Bld) [#/Vol] 9.53 10*3/uL Normal 3.70-11.00 [facility] Comment on above: Order Comment: Speci men Type: BLOOD SPECIMENOrdering Facility: [facility] Address: [address] [place] [address] Performed By: #### 5 7021-8 ####[facility] LABIA [id number] [place] [address] [place] Comprehensive metabolic 2000 panelon 07-30-2023 Albumin [Mass/Vol] 4.0 g/dL Normal 3.9-4.9 [facility] Comment on above: Order Comment: Speci men Type: BLOOD SPECIMENOrdering Facility: [facility] Address: [address] [place] [address] Performed By: #### 2 4323-8 ####[facility] LABCLIA [id number] [place] [address] [place] ALP [Catalytic activity/Vol] 64 U/L Normal 34-123 [facility] Comment on above: Order Comment: Speci men Type: BLOOD SPECIMENOrdering Facility: [facility] Address: [address] [place] [address] Performed By: #### 2 4323-8 ####[facility] LABCLIA [id number] [place] [address] [place] ALT [Catalytic activity/Vol] 30 U/L Normal 7-38 [facility] Comment on above: Order Comment: Speci men Type: BLOOD SPECIMENOrdering Facility: [facility] Address: [address] [place] [address] Performed By: #### 2 4323-8 ####[facility] LABCLIA [id number] [place] [address] [place] Anion gap [Moles/Vol] 12 mmol/L Normal 8-15 [facility] Comment on above: Order Comment: Speci men Type: BLOOD SPECIMENOrdering Facility: [facility] Address: [address] [place] [address] Performed By: #### 2 4323-8 ####[facility] LABCLIA [id number] [place] [address] [place] AST [Catalytic activity/Vol] 30 U/L Normal 13-35 [facility] Comment on above: Order Comment: Speci men Type: BLOOD SPECIMENOrdering Facility: [facility] Address: [address] [place] [address] Performed By: #### 2 4323-8 ####[facility] LABCLIA [id number] [place] [address] [place] Bilirubin [Mass/Vol] 0.2 mg/dL Normal 0.2-1.3 [facility] Comment on above: Order Comment: Speci men Type: BLOOD SPECIMENOrdering Facility: [facility] Address: [address] [place] [address] Performed By: #### 2 4323-8 ####[facility] LABCLIA [id number] [place] [address] [place] Calcium [Mass/Vol] 8.7 mg/dL Normal 8.5-10.2 [facility] Comment on above: Order Comment: Speci men Type: BLOOD SPECIMENOrdering Facility: [facility] Address: [address] [place] [address] Performed By: #### 2 4323-8 ####[facility] LABCLIA [id number] [place] [address] [place] Chloride [Moles/Vol] 105 mmol/L Normal 98-107 [facility] Comment on above: Order Comment: Speci men Type: BLOOD SPECIMENOrdering Facility: [facility] Address: [address] [place] [address] Performed By: #### 2 4323-8 ####[facility] LABCLIA [id number] [place] [address] [place] CO2 [Moles/Vol] 22 mmol/L Normal 22-30 [facility] Comment on above: Order Comment: Speci men Type: BLOOD SPECIMENOrdering Facility: [facility] Address: [address] [place] [address] Performed By: #### 2 4323-8 ####[facility] LABCLIA [id number] [place] [address] [place] Creatinine [Mass/Vol] 0.59 mg/dL Normal 0.58-0.96 [facility] Comment on above: Order Comment: Geraldo marrero Type: BLOOD SPECIMENOrdering Facility: [facility] Address: [address] [place] [address] Performed By: #### 2 4323-8 ####[facility] LABCLIA [id number] [place] [address] [place] Creatinine and Glomerular filtration rate.predicted panel (S/P/Bld) 121 mL/min/1.73m??? Normal >=60 [facility] Comment on above: Order Comment: Geraldo marrero Type: BLOOD SPECIMENOrdering Facility: [facility] Address: [address] [place] [address] Result Comment: Jessica mated Glomerular Filtration Rate [...] Performed By: #### 2 4323-8 ####[facility] LABCLIA [id number] [place] [address] [place] Glucose [Mass/Vol] 88 mg/dL Normal 74-99 [facility] Comment on above: Order Comment: Geraldo marrero Type: BLOOD SPECIMENOrdering Facility: [facility] Address: [address] [place] [address] Result Comment: The [place] [employer] (ADA) provides guidance for cutoff [...] Standards of Medical Care in Diabetes 2016, [place] [employer]. Diabetes Care. 2016.39(Suppl 1). Performed By: #### 2 4323-8 ####[facility] LABCLIA [id number] [place] [address] [place] Potassium [Moles/Vol] 4.0 mmol/L Normal 3.7-5.1 [facility] Comment on above: Order Comment: Speci men Type: BLOOD SPECIMENOrdering Facility: [facility] Address: [address] [place] [address] Performed By: #### 2 4323-8 ####[facility] LABCLIA [id number] [place] [address] [place] Protein [Mass/Vol] 6.5 g/dL Normal 6.3-8.0 [facility] Comment on above: Order Comment: Speci men Type: BLOOD SPECIMENOrdering Facility: [facility] Address: [address] [place] [address] Performed By: #### 2 4323-8 ####[facility] LABIA [id number] [place] [address] [place] Sodium [Moles/Vol] 139 mmol/L Normal 136-144 [facility] Comment on above: Order Comment: Speci men Type: BLOOD SPECIMENOrdering Facility: [facility] Address: [address] [place] [address] Performed By: #### 2 4323-8 ####[facility] LABCLIA [id number] [place] [id number] [place] Urea nitrogen [Mass/Vol] 13 mg/dL Normal 7-21 [facility] Comment on above: Order Comment: Speci men Type: BLOOD SPECIMENOrdering Facility: [facility] Address: [address] [place] [address] Performed By: #### 2 4323-8 ####[facility] LABCLIA [id number] [address] [place] [address] [place] Basic metabolic 2000 panelon 07-20-2023 Anion gap [Moles/Vol] 14 mmol/L Normal 9-18 [facility] Comment on above: Order Comment: Speci men Type: BLOOD SPECIMENOrdering Facility: [facility] Address: [address] [place] [address] Performed By: #### 2 777-1, 53236-0, ####[facility] [id number] [place] [id number] [place] [place] Calcium [Mass/Vol] 8.9 mg/dL Normal 8.5-10.2 [facility] Comment on above: Order Comment: Speci men Type: BLOOD SPECIMENOrdering Facility: [facility] Address: [address] [place] [address] Performed By: #### 2 777-1, 43518-7, ####[facility] LABORATORYCLIA [id number] [place] [address] [place] Chloride [Moles/Vol] 110 mmol/L High 97-105 [facility] Comment on above: Order Comment: Speci men Type: BLOOD SPECIMENOrdering Facility: [facility] Address: [address] [place] [address] Performed By: #### 2 777-1, , ####[facility] LABORATORYCLIA [id number] [place] [id number] [place] CO2 [Moles/Vol] 19 mmol/L Low 22-30 [facility] Comment on above: Order Comment: Speci men Type: BLOOD SPECIMENOrdering Facility: [facility] Address: [address] [place] [address] Performed By: #### 2 777-1, 42234-1, ####T[facility] LABORATORYCLIA [id number] [place] [id number] [place] Creatinine [Mass/Vol] 0.76 mg/dL Normal 0.58-0.96 [facility] Comment on above: Order Comment: Speci men Type: BLOOD SPECIMENOrdering Facility: [facility] Address: [address] [place] [address] Performed By: #### 2 777-1, 86288-6, ####T[facility] LABORATORYCLIA [id number] [place] [id number] [place] Creatinine and Glomerular filtration rate.predicted panel (S/P/Bld) 106 mL/min/1.73m??? Normal >=60 [facility] Comment on above: Order Comment: Geraldo marrero Type: BLOOD SPECIMENOrdering Facility: [facility] Address: [address] [place] [address] Result Comment: Jessica mated Glomerular Filtration Rate [...] actual GFR. Performed By: #### 2 777-1, 93829-9, ####[facility] LABORATORYCLIA [id number] [place] [id number] [place] Glucose [Mass/Vol] 97 mg/dL Normal 74-99 [facility] Comment on above: Order Comment: Geraldo marrero Type: BLOOD SPECIMENOrdering Facility: [facility] Address: [address] [place] [address] Result Comment: The [place] [employer] (ADA) provides guidance for cutoff [...] Standards of Medical Care in Diabetes 2016, [place] [employer]. Diabetes Care. 2016.39(Suppl 1). Performed By: #### 2 777-1, 08805-4, ####T[facility] LABORATORYCLIA [id number] [place] [id number] [place] Potassium [Moles/Vol] 4.0 mmol/L Normal 3.7-5.1 [facility] Comment on above: Order Comment: Speci men Type: BLOOD SPECIMENOrdering Facility: [facility] Address: [address] [place] [address] Performed By: #### 2 777-1, 90898-3, ####T[facility] LABORATORYCLIA [id number] [place] [id number] [place] Sodium [Moles/Vol] 143 mmol/L Normal 136-144 [facility] Comment on above: Order Comment: Speci men Type: BLOOD SPECIMENOrdering Facility: [facility] Address: [address] [place] [address] Performed By: #### 2 777-1, , ####TREZ[facility] LABORATORYCLIA [id number] [place] [id number] [place] Urea nitrogen [Mass/Vol] 8 mg/dL Normal 7-21 [facility] Comment on above: Order Comment: Speci men Type: BLOOD SPECIMENOrdering Facility: [facility] Address: [address] [place] [address] Performed By: #### 2 777-1, , ####TREZ[facility] LABORATORYCLIA [id number] [place] [id number] [place] CASE MANAGEMon 07-20-2023 CASE MANAGEM Normal [facility] CBC W Auto Differential pane l (Bld)on 07-20-2023 Basophils (Bld) [#/Vol] 10*3/uL Normal <0.11 [facility] Comment on above: Order Comment: Speci men Type: BLOOD SPECIMENOrdering Facility: [facility] Address: [address] [place] [address] Performed By: #### 5 7021-8 ####TREZ[facility] LABORATORYCLIA [id number] [place] [address] [place] Basophils/100 WBC (Bld) 0.4 % Normal [facility] Comment on above: Order Comment: Speci men Type: BLOOD SPECIMENOrdering Facility: [facility] Address: [address] [place] [address] Performed By: #### 5 7021-8 ####[facility] LABORATORYCLIA [id number] [place] [address] [place] Differential cell count method Nom (Bld) Auto Normal [facility] Comment on above: Order Comment: Speci men Type: BLOOD SPECIMENOrdering Facility: [facility] Address: [address] [place] [address] Performed By: #### 5 7021-8 ####[facility] LABORATORYCLIA [id number] [place] [address] [place] Eosinophils (Bld) [#/Vol] 0.19 10*3/uL Normal <0.46 [facility] Comment on above: Order Comment: Speci men Type: BLOOD SPECIMENOrdering Facility: [facility] Address: [address] [place] [address] Performed By: #### 5 7021-8 ####[facility] LABORATORYCLIA [id number] [place] [address] [place] Eosinophils/100 WBC (Bld) 3.8 % Normal [facility] Comment on above: Order Comment: Speci men Type: BLOOD SPECIMENOrdering Facility: [facility] Address: [address] [place] [address] Performed By: #### 5 7021-8 ####[facility] LABORATORYCLIA [id number] [place] [address] [place] Erythrocyte distribution width (RBC) [Ratio] 12.8 % Normal 11.5-15.0 [facility] Comment on above: Order Comment: Speci men Type: BLOOD SPECIMENOrdering Facility: [facility] Address: [address] [place] [address] Performed By: #### 5 7021-8 ####OS[facility] LABORATORYCLIA [id number] [place] [address] [place] Hematocrit (Bld) [Volume fraction] 31.6 % Low 36.0-46.0 [facility] Comment on above: Order Comment: Speci men Type: BLOOD SPECIMENOrdering Facility: [facility] Address: [address] [place] [address] Performed By: #### 5 7021-8 ####[facility] LABORATORYCLIA [id number] [place] [address] [place] Hemoglobin (Bld) [Mass/Vol] 10.5 g/dL Low 11.5-15.5 [facility] Comment on above: Order Comment: Speci men Type: BLOOD SPECIMENOrdering Facility: [facility] Address: [address] [place] [address] Performed By: #### 5 7021-8 ####[facility] LABORATORYCLIA [id number] [place] [address] [place] Immature granulocytes (Bld) [#/Vol] 10*3/uL Normal <0.10 [facility] Comment on above: Order Comment: Speci men Type: BLOOD SPECIMENOrdering Facility: [facility] Address: [address] [place] [address] Performed By: #### 5 7021-8 ####[facility] LABORATORYCLIA [id number] [place] [address] [place] Immature granulocytes/100 WBC (Bld) 0.2 % Normal [facility] Comment on above: Order Comment: Speci men Type: BLOOD SPECIMENOrdering Facility: [facility] Address: [address] [place] [address] Performed By: #### 5 7021-8 ####[facility] LABORATORYCLIA [id number] [place] [id number] [place] Lymphocytes (Bld) [#/Vol] 0.99 10*3/uL Low 1.00-4.00 [facility] Comment on above: Order Comment: Speci men Type: BLOOD SPECIMENOrdering Facility: [facility] Address: [address] [place] [address] Performed By: #### 5 7021-8 ####[facility] LABORATORYCLIA [id number] [place] [address] [place] Lymphocytes/100 WBC (Bld) 19.8 % Normal [facility] Comment on above: Order Comment: Speci men Type: BLOOD SPECIMENOrdering Facility: [facility] Address: [address] [place] [address] Performed By: #### 5 7021-8 ####[facility] LABORATORYCLIA [id number] [address] [place] [facility] MCH (RBC) [Entitic mass] 30.2 pg Normal 26.0-34.0 [facility] Comment on above: Order Comment: Speci men Type: BLOOD SPECIMENOrdering Facility: [facility] Address: [address] [place] [address] Performed By: #### 5 7021-8 ####[facility] LABORATORYCLIA [id number] [address] [place] MCHC (RBC) [Mass/Vol] 33.2 g/dL Normal 30.5-36.0 [facility] Comment on above: Order Comment: Speci men Type: BLOOD SPECIMENOrdering Facility: [facility] Address: [address] [place] [address] Performed By: #### 5 7021-8 ####[facility] LABORATORYCLIA [id number] [address] [place] MCV (RBC) [Entitic vol] 90.8 fL Normal 80.0-100.0 [facility] Comment on above: Order Comment: Speci men Type: BLOOD SPECIMENOrdering Facility: [facility] Address: [address] [place] [address] Performed By: #### 5 7021-8 ####[facility] LABORATORYCLIA [id number] [address] [place] Monocytes (Bld) [#/Vol] 0.32 10*3/uL Normal <0.87 [facility] Comment on above: Order Comment: Speci men Type: BLOOD SPECIMENOrdering Facility: [facility] Address: [address] [place] [address] Performed By: #### 5 7021-8 ####[facility] LABORATORYCLIA [id number] [place] [id number] [place] Monocytes/100 WBC (Bld) 6.4 % Normal [facility] Comment on above: Order Comment: Speci men Type: BLOOD SPECIMENOrdering Facility: [facility] Address: [address] [place] [address] Performed By: #### 5 7021-8 ####[facility] LABORATORYCLIA [id number] [place] [address] [place] Neutrophils (Bld) [#/Vol] 3.47 10*3/uL Normal 1.45-7.50 [facility] Comment on above: Order Comment: Speci men Type: BLOOD SPECIMENOrdering Facility: [facility] Address: [address] [place] [address] Performed By: #### 5 7021-8 ####[facility] LABORATORYCLIA [id number] [place] [address] [place] Neutrophils/100 WBC (Bld) 69.4 % Normal [facility] Comment on above: Order Comment: Speci men Type: BLOOD SPECIMENOrdering Facility: [facility] Address: [address] [place] [address] Performed By: #### 5 7021-8 ####[facility] LABORATORYCLIA [id number] [place] [id number] [place] Nucleated RBC (Bld) [#/Vol] 10*3/uL Normal <0.01 [facility] Comment on above: Order Comment: Speci men Type: BLOOD SPECIMENOrdering Facility: [facility] Address: [address] [place] [address] Performed By: #### 5 7021-8 ####[facility] LABORATORYCLIA [id number] [place] [address] [place] Nucleated RBC/100 WBC (Bld) [Ratio] 0.0 /100 WBC Normal [facility] Comment on above: Order Comment: Speci men Type: BLOOD SPECIMENOrdering Facility: [facility] Address: [address] [place] [address] Performed By: #### 5 7021-8 ####T[facility] LABORATORYCLIA [id number] [place] [id number] [place] Platelet mean volume (Bld) [Entitic vol] 11.1 fL Normal 9.0-12.7 [facility] Comment on above: Order Comment: Speci men Type: BLOOD SPECIMENOrdering Facility: [facility] Address: [address] [place] [address] Performed By: #### 5 7021-8 ####T[facility] LABORATORYCLIA [id number] [place] [id number] [place] Platelets (Bld) [#/Vol] 225 10*3/uL Normal 150-400 [facility] Comment on above: Order Comment: Speci men Type: BLOOD SPECIMENOrdering Facility: [facility] Address: [address] [place] [address] Performed By: #### 5 7021-8 ####T[facility] LABORATORYCLIA [id number] [place] [id number] [place] RBC (Bld) [#/Vol] 3.48 10*6/uL Low 3.90-5.20 [facility] Comment on above: Order Comment: Speci men Type: BLOOD SPECIMENOrdering Facility: [facility] Address: [facility] [place] [address] Performed By: #### 5 7021-8 ####TREZ[facility] LABORATORYCLIA [id number] [place] [address] [place] WBC (Bld) [#/Vol] 5.00 10*3/uL Normal 3.70-11.00 [facility] Comment on above: Order Comment: Speci men Type: BLOOD SPECIMENOrdering Facility: [facility] Address: [facility] [place] [address] Performed By: #### 5 7021-8 ####T[facility] LABORATORYCLIA [id number] [place] [id number] [place] CNDSon 07-20-2023 CNDS Normal [facility] Magnesium SerPl-ncon 07-19 Magnesium [Mass/Vol] 2.1 mg/dL Normal 1.7-2.3 [facility] Comment on above: Order Comment: Speci men Type: BLOOD SPECIMENOrdering Facility: [facility] Address: [address] [place], [place] [address] Performed By: #### 2 777-1, 90610-0, ####T[facility] LABORATORYCLIA [id number] [place] [id number] [facility] NURSING PROGon 07-20-2023 NURSING PROG Normal [facility] Phosphate [Mass/Vol] 4.2 mg/dL Normal 2.7-4.8 [facility] Comment on above: Order Comment: Speci men Type: BLOOD SPECIMENOrdering Facility: [facility] Address: [address] [place] [address] Performed By: #### 2 777-1, 44815-7, ####T[facility] LABORATORYCLIA [id number] [place] [id number] [place] Basic metabolic 2000 panelon 07-19-2023 Anion gap [Moles/Vol] 9 mmol/L Normal 9-18 [facility] Comment on above: Order Comment: Speci men Type: BLOOD SPECIMENOrdering Facility: [facility] Address: [address] [place], [place] [address] Performed By: #### 2 777-1, 01344-9, ####T[facility] LABORATORYCLIA [id number] [place] [id number] [place] Calcium [Mass/Vol] 8.7 mg/dL Normal 8.5-10.2 [facility] Comment on above: Order Comment: Speci men Type: BLOOD SPECIMENOrdering Facility: [facility] Address: [address] [place] [address] Performed By: #### 2 777-1, 11081-1, ####TRE[facility] LABORATORYCLIA [id number] [place] [address] STATES OF [facility] Chloride [Moles/Vol] 107 mmol/L High 97-105 [facility] Comment on above: Order Comment: Speci men Type: BLOOD SPECIMENOrdering Facility: [facility] Address: [address] [place] [address] Performed By: #### 2 777-1, 16411-3, ####T[facility] LABORATORYCLIA [id number] [place] [address] [place] CO2 [Moles/Vol] 23 mmol/L Normal 22-30 [facility] Comment on above: Order Comment: Speci men Type: BLOOD SPECIMENOrdering Facility: [facility] Address: [address] [place] [address] Performed By: #### 2 777-1, , ####T[facility] LABORATORYCLIA [id number] [place] [address] [facility] Creatinine [Mass/Vol] 0.75 mg/dL Normal 0.58-0.96 [facility] Comment on above: Order Comment: Speci men Type: BLOOD SPECIMENOrdering Facility: [facility] Address: [address] [place] [address] Performed By: #### 2 777-1, , ####T[facility] LABORATORYCLIA [id number] [address] Creatinine and Glomerular filtration rate.predicted panel (S/P/Bld) 107 mL/min/1.73m??? Normal >=60 [facility] Comment on above: Order Comment: Speci men Type: BLOOD SPECIMENOrdering Facility: [facility] Address: [address] [place] [address] Result Comment: Jessica mated Glomerular Filtration Rate [...] GFR. Performed By: #### 2 777-1, , ####[facility] LABORATORYCLIA [id number] [place] [address] [place] Glucose [Mass/Vol] 81 mg/dL Normal 74-99 [facility] Comment on above: Order Comment: Speci men Type: BLOOD SPECIMENOrdering Facility: [facility] Address: [address] [place] [address] Result Comment: The [place] [employer] (ADA) provides guidance for cutoff [...] Standards of Medical Care in Diabetes 2016, [place] [employer]. Diabetes Care. 2016.39(Suppl 1). Performed By: #### 2 777-1, , ####[facility] LABORATORYCLIA [id number] [place] [id number] [place] Potassium [Moles/Vol] 3.9 mmol/L Normal 3.7-5.1 [facility] Comment on above: Order Comment: Speci men Type: BLOOD SPECIMENOrdering Facility: [facility] Address: [address] [place] [address] Performed By: #### 2 777-1, , ####[facility] LABORATORYCLIA [id number] [place] [address] [place] Sodium [Moles/Vol] 139 mmol/L Normal 136-144 [facility] Comment on above: Order Comment: Speci men Type: BLOOD SPECIMENOrdering Facility: [facility] Address: [address] [place], [place] [address] Performed By: #### 2 777-1, , ####TREZ[facility] LABORATORYCLIA [id number] [place] [id number] [place] Urea nitrogen [Mass/Vol] 6 mg/dL Low - [facility] Comment on above: Order Comment: Speci men Type: BLOOD SPECIMENOrdering Facility: [facility] Address: [address] [place] [address] Performed By: #### 2 777-1, 59978-7, ####TRE[facility] LABORATORYCLIA [id number] [place] [address] [place] CASE MGT INIT ASSESon 2023 CASE MGT INIT ASSES Normal [facility] CBC W Auto Differential pane l (Bld)on 07-19-2023 Basophils (Bld) [#/Vol] 0.04 10*3/uL Normal <0.11 [facility] Comment on above: Order Comment: Speci men Type: BLOOD SPECIMENOrdering Facility: [facility] Address: [address] [place] [address] Performed By: #### 5 7021-8 ####TREZEVANT LABORATORYCLIA [id number] [place] [address] [place] Basophils/100 WBC (Bld) 1.3 % Normal [facility] Comment on above: Order Comment: Speci men Type: BLOOD SPECIMENOrdering Facility: [facility] Address: [address] [place] [address] Performed By: #### 5 7021-8 ####TREZ[facility] LABORATORYCLIA [id number] [place] [address] [place] Differential cell count method Nom (Bld) Auto Normal [facility] Comment on above: Order Comment: Speci men Type: BLOOD SPECIMENOrdering Facility: [facility] Address: [address] [place] [address] Performed By: #### 5 7021-8 ####TREZ[facility] LABORATORYCLIA [id number] [place] [address] [place] Eosinophils (Bld) [#/Vol] 0.28 10*3/uL Normal <0.46 [facility] Comment on above: Order Comment: Speci men Type: BLOOD SPECIMENOrdering Facility: [facility] Address: [address] [place] [address] Performed By: #### 5 7021-8 ####OSVALDO LABORATORYCLIA [id number] [place] [address] [place] Eosinophils/100 WBC (Bld) 9.1 % Normal [facility] Comment on above: Order Comment: Speci men Type: BLOOD SPECIMENOrdering Facility: [facility] Address: [address] [place] [address] Performed By: #### 5 7021-8 ####[facility] LABORATORYCLIA [id number] [place] [address] [place] Erythrocyte distribution width (RBC) [Ratio] 12.6 % Normal 11.5-15.0 [facility] Comment on above: Order Comment: Speci men Type: BLOOD SPECIMENOrdering Facility: [facility] Address: [address] [place] [address] Performed By: #### 5 7021-8 ####[facility] LABORATORYCLIA [id number] [place] [address] [place] Hematocrit (Bld) [Volume fraction] 29.7 % Low 36.0-46.0 [facility] Comment on above: Order Comment: Speci men Type: BLOOD SPECIMENOrdering Facility: [facility] Address: [address] [place] [address] Performed By: #### 5 7021-8 ####[facility] LABORATORYCLIA [id number] [place] [address] [place] Hemoglobin (Bld) [Mass/Vol] 10.0 g/dL Low 11.5-15.5 [facility] Comment on above: Order Comment: Speci men Type: BLOOD SPECIMENOrdering Facility: [facility] Address: [address] [place] [address] Performed By: #### 5 7021-8 ####OS[facility] LABORATORYCLIA [id number] [place] [address] [place] Immature granulocytes (Bld) [#/Vol] 10*3/uL Normal <0.10 [facility] Comment on above: Order Comment: Speci men Type: BLOOD SPECIMENOrdering Facility: [facility] Address: [address] [place] [address] Performed By: #### 5 7021-8 ####[facility] LABORATORYCLIA [id number] [place] [address] [place] Immature granulocytes/100 WBC (Bld) 0.3 % Normal [facility] Comment on above: Order Comment: Speci men Type: BLOOD SPECIMENOrdering Facility: [facility] Address: [address] [place] [address] Performed By: #### 5 7021-8 ####[facility] LABORATORYCLIA [id number] [place] [address] [place] Lymphocytes (Bld) [#/Vol] 1.18 10*3/uL Normal 1.00-4.00 [facility] Comment on above: Order Comment: Speci men Type: BLOOD SPECIMENOrdering Facility: [facility] Address: [address] [place] [address] Performed By: #### 5 7021-8 ####[facility] LABORATORYCLIA [id number] [address] STATES [facility] Lymphocytes/100 WBC (Bld) 38.2 % Normal [facility] Comment on above: Order Comment: Speci men Type: BLOOD SPECIMENOrdering Facility: [facility] Address: [address] [place] [address] Performed By: #### 5 7021-8 ####[facility] LABORATORYCLIA [id number] [place] [address] [place] MCH (RBC) [Entitic mass] 29.9 pg Normal 26.0-34.0 [facility] Comment on above: Order Comment: Speci men Type: BLOOD SPECIMENOrdering Facility: [facility] Address: [address] [place] [address] Performed By: #### 5 7021-8 ####[facility] LABORATORYCLIA [id number] [address] [place] MCHC (RBC) [Mass/Vol] 33.7 g/dL Normal 30.5-36.0 [facility] Comment on above: Order Comment: Speci men Type: BLOOD SPECIMENOrdering Facility: [facility] Address: [address] [place] [address] Performed By: #### 5 7021-8 ####OSVAL[facility] LABORATORYCLIA [id number] [place] [id number] [place] MCV (RBC) [Entitic vol] 88.9 fL Normal 80.0-100.0 [facility] Comment on above: Order Comment: Speci men Type: BLOOD SPECIMENOrdering Facility: [facility] Address: [address] [place] [address] Performed By: #### 5 7021-8 ####[facility] LABORATORYCLIA [id number] [place] [address] [place] Monocytes (Bld) [#/Vol] 0.26 10*3/uL Normal <0.87 [facility] Comment on above: Order Comment: Speci men Type: BLOOD SPECIMENOrdering Facility: [facility] Address: [address] [place] [address] Performed By: #### 5 7021-8 ####[facility] LABORATORYCLIA [id number] [address] [place] Monocytes/100 WBC (Bld) 8.4 % Normal [facility] Comment on above: Order Comment: Speci men Type: BLOOD SPECIMENOrdering Facility: [facility] Address: [address] [place] [address] Performed By: #### 5 7021-8 ####[facility] LABORATORYCLIA [id number] [place] [address] [place] Neutrophils (Bld) [#/Vol] 1.32 10*3/uL Low 1.45-7.50 [facility] Comment on above: Order Comment: Speci men Type: BLOOD SPECIMENOrdering Facility: [facility] Address: [address] [place] [address] Performed By: #### 5 7021-8 ####OV[facility] LABORATORYCLIA [id number] [place] [id number] [place] Neutrophils/100 WBC (Bld) 42.7 % Normal [facility] Comment on above: Order Comment: Speci men Type: BLOOD SPECIMENOrdering Facility: [facility] Address: [address] [place] [address] Performed By: #### 5 7021-8 ####[facility] LABORATORYCLIA [id number] [place] [address] [place] Nucleated RBC (Bld) [#/Vol] 10*3/uL Normal <0.01 [facility] Comment on above: Order Comment: Speci men Type: BLOOD SPECIMENOrdering Facility: [facility] Address: [address] [place] [address] Performed By: #### 5 7021-8 ####[facility] LABORATORYCLIA [id number] [place] [id number] [place] Nucleated RBC/100 WBC (Bld) [Ratio] 0.0 /100 WBC Normal [facility] Comment on above: Order Comment: Speci men Type: BLOOD SPECIMENOrdering Facility: [facility] Address: [address] [place] [address] Performed By: #### 5 7021-8 ####OSVALDO LABORATORYCLIA [id number] [address] [place] Platelet mean volume (Bld) [Entitic vol] 10.6 fL Normal 9.0-12.7 [facility] Comment on above: Order Comment: Speci men Type: BLOOD SPECIMENOrdering Facility: [facility] Address: [address] [place] [address] Performed By: #### 5 7021-8 ####[facility] LABORATORYCLIA [id number] [place] [id number] [place] Platelets (Bld) [#/Vol] 210 10*3/uL Normal 150-400 [facility] Comment on above: Order Comment: Speci men Type: BLOOD SPECIMENOrdering Facility: [facility] Address: [address] [place] [address] Performed By: #### 5 7021-8 ####OSVALDO LABORATORYCLIA [id number] [place] [address] [place] RBC (Bld) [#/Vol] 3.34 10*6/uL Low 3.90-5.20 [facility] Comment on above: Order Comment: Speci men Type: BLOOD SPECIMENOrdering Facility: [facility] Address: [address] [place] [address] Performed By: #### 5 7021-8 ####OSVALDO LABORATORYCLIA [id number] [place] [address] [place] WBC (Bld) [#/Vol] 3.09 10*3/uL Low 3.70-11.00 [facility] Comment on above: Order Comment: Speci men Type: BLOOD SPECIMENOrdering Facility: [facility] Address: [address] [place] [address] Performed By: #### 5 7021-8 ####OSVALDO LABORATORYCLIA [id number] [place] [id number] [place] Magnesium SerPl-ncon 07-18 Magnesium [Mass/Vol] 2.0 mg/dL Normal 1.7-2.3 [facility] Comment on above: Order Comment: Speci men Type: BLOOD SPECIMENOrdering Facility: [facility] Address: [address] [place] [address] Performed By: #### 2 777-1, 49353-6, 33968-9 ####OSVALDO LABORATORYCLIA [id number] [place] [address] [place] NUTRITIONon 07-19-2023 NUTRITION Normal [facility] Phosphate SerPl-mCncon 07-18 Phosphate [Mass/Vol] 4.3 mg/dL Normal 2.7-4.8 [facility] Comment on above: Order Comment: Speci men Type: BLOOD SPECIMENOrdering Facility: [facility] Address: [address] [place] [address] Performed By: #### 2 777-1, 34085-7, ####TREZEVANT LABORATORYCLIA [id number] [place] [address] [place] ALLIED HEALTHon 07-18-2023 ALLIED HEALTH Normal [facility] ALLIED HEALTH Normal [facility] Basic metabolic 2000 panelon 07-18-2023 Anion gap [Moles/Vol] 9 mmol/L Normal 9-18 [facility] Comment on above: Order Comment: Speci men Type: BLOOD SPECIMENOrdering Facility: [facility] Address: [address] [place] [address] Performed By: #### 2 777-1, , ####TREZEVANT LABORATORYCLIA [id number] [place] [address] [place] Calcium [Mass/Vol] 8.5 mg/dL Normal 8.5-10.2 [facility] Comment on above: Order Comment: Speci men Type: BLOOD SPECIMENOrdering Facility: [facility] Address: [address] [place] [address] Performed By: #### 2 777-1, , ####TREZEVANT LABORATORYCLIA [id number] [place] [id number] [place] Chloride [Moles/Vol] 108 mmol/L High 97-105 [facility] Comment on above: Order Comment: Speci men Type: BLOOD SPECIMENOrdering Facility: [facility] Address: [address] [place] [address] Performed By: #### 2 777-1, , ####TREZEVANT LABORATORYCLIA [id number] [place] [address] [place] CO2 [Moles/Vol] 22 mmol/L Normal 22-30 [facility] Comment on above: Order Comment: Speci men Type: BLOOD SPECIMENOrdering Facility: [facility] Address: [address] [place] [address] Performed By: #### 2 777-1, , ####TREZEVANT LABORATORYCLIA [id number] [place] [address] [place] Creatinine [Mass/Vol] 0.76 mg/dL Normal 0.58-0.96 [facility] Comment on above: Order Comment: Geraldo marrero Type: BLOOD SPECIMENOrdering Facility: [facility] Address: [address] [place] [address] Performed By: #### 2 777-1, 52472-1, ####TREZEVANT LABORATORYCLIA [id number] [place] [id number] [place] Creatinine and Glomerular filtration rate.predicted panel (S/P/Bld) 106 mL/min/1.73m??? Normal >=60 [facility] Comment on above: Order Comment: Geraldo marrero Type: BLOOD SPECIMENOrdering Facility: [facility] Address: [address] [place] [address] Result Comment: Jessica mated Glomerular Filtration Rate [...] actual GFR. Performed By: #### 2 777-1, 97714-8, ####TREZEVANT LABORATORYCLIA [id number] [place] [address] [place] Glucose [Mass/Vol] 80 mg/dL Normal 74-99 [facility] Comment on above: Order Comment: Geraldo marrero Type: BLOOD SPECIMENOrdering Facility: [facility] Address: [address] [place] [address] Result Comment: The [place] [employer] (ADA) provides guidance for cutoff [...] Standards of Medical Care in Diabetes 2016, [place] [employer]. Diabetes Care. 2016.39(Suppl 1). Performed By: #### 2 777-1, 03231-6, ####OSVALDO LABORATORYCLIA [id number] [place] [address] [place] Potassium [Moles/Vol] 4.1 mmol/L Normal 3.7-5.1 [facility] Comment on above: Order Comment: Speci men Type: BLOOD SPECIMENOrdering Facility: [facility] Address: [address] [place] [address] Performed By: #### 2 777-1, , ####[facility] LABORATORYCLIA [id number] [place] [address] [place] Sodium [Moles/Vol] 139 mmol/L Normal 136-144 [facility] Comment on above: Order Comment: Speci men Type: BLOOD SPECIMENOrdering Facility: [facility] Address: [address] [place] [address] Performed By: #### 2 777-1, , ####[facility] LABORATORYCLIA [id number] [place] [id number] [place] Urea nitrogen [Mass/Vol] 7 mg/dL Normal 7-21 [facility] Comment on above: Order Comment: Speci men Type: BLOOD SPECIMENOrdering Facility: [facility] Address: [address] [place] [address] Performed By: #### 2 777-1, , ####[facility] LABORATORYCLIA [id number] [place] [address] [place] CBC W Auto Differential pane l (Bld)on 07-18-2023 Basophils (Bld) [#/Vol] 0.06 10*3/uL Normal <0.11 [facility] Comment on above: Order Comment: Speci men Type: BLOOD SPECIMENOrdering Facility: [facility] Address: [address] [place] [address] Performed By: #### 5 7021-8 ####OSVALDO LABORATORYCLIA [id number] [place] [address] [place] Basophils/100 WBC (Bld) 1.6 % Normal [facility] Comment on above: Order Comment: Speci men Type: BLOOD SPECIMENOrdering Facility: [facility] Address: [address] [place] [address] Performed By: #### 5 7021-8 ####OSVALDO LABORATORYCLIA [id number] [address] [place] Differential cell count method Nom (Bld) Auto Normal [facility] Comment on above: Order Comment: Speci men Type: BLOOD SPECIMENOrdering Facility: [facility] Address: [address] [place] [address] Performed By: #### 5 7021-8 ####OSVALDO LABORATORYCLIA [id number] [place] [address] [place] Eosinophils (Bld) [#/Vol] 0.33 10*3/uL Normal <0.46 [facility] Comment on above: Order Comment: Speci men Type: BLOOD SPECIMENOrdering Facility: [facility] Address: [address] [place] [address] Performed By: #### 5 7021-8 ####OSVALDO LABORATORYCLIA [id number] [address] [place] Eosinophils/100 WBC (Bld) 8.8 % Normal [facility] Comment on above: Order Comment: Speci men Type: BLOOD SPECIMENOrdering Facility: [facility] Address: [address] [place] [address] Performed By: #### 5 7021-8 ####OSVALDO LABORATORYCLIA [id number] [address] [place] Erythrocyte distribution width (RBC) [Ratio] 12.9 % Normal 11.5-15.0 [facility] Comment on above: Order Comment: Speci men Type: BLOOD SPECIMENOrdering Facility: [facility] Address: [address] [place] [address] Performed By: #### 5 7021-8 ####[facility] LABORATORYCLIA [id number] [place] [id number] [place] Hematocrit (Bld) [Volume fraction] 31.1 % Low 36.0-46.0 [facility] Comment on above: Order Comment: Speci men Type: BLOOD SPECIMENOrdering Facility: [facility] Address: [address] [place] [address] Performed By: #### 5 7021-8 ####[facility] LABORATORYCLIA [id number] [place] [address] [place] Hemoglobin (Bld) [Mass/Vol] 10.2 g/dL Low 11.5-15.5 [facility] Comment on above: Order Comment: Speci men Type: BLOOD SPECIMENOrdering Facility: [facility] Address: [address] [place] [address] Performed By: #### 5 7021-8 ####[facility] LABORATORYCLIA [id number] [place] [address] [place] Immature granulocytes (Bld) [#/Vol] 10*3/uL Normal <0.10 [facility] Comment on above: Order Comment: Speci men Type: BLOOD SPECIMENOrdering Facility: [facility] Address: [address] [place] [address] Performed By: #### 5 7021-8 ####[facility] LABORATORYCLIA [id number] [place] [address] [place] Immature granulocytes/100 WBC (Bld) 0.0 % Normal [facility] Comment on above: Order Comment: Speci men Type: BLOOD SPECIMENOrdering Facility: [facility] Address: [address] [place] [address] Performed By: #### 5 7021-8 ####[facility] LABORATORYCLIA [id number] [place] [address] [place] Lymphocytes (Bld) [#/Vol] 1.40 10*3/uL Normal 1.00-4.00 [facility] Comment on above: Order Comment: Speci men Type: BLOOD SPECIMENOrdering Facility: [facility] Address: [address] [place] [address] Performed By: #### 5 7021-8 ####[facility] LABORATORYCLIA [id number] [place] [address] [place] Lymphocytes/100 WBC (Bld) 37.2 % Normal [facility] Comment on above: Order Comment: Speci men Type: BLOOD SPECIMENOrdering Facility: [facility] Address: [address] [place] [address] Performed By: #### 5 7021-8 ####[facility] LABORATORYCLIA [id number] [address] [place] MCH (RBC) [Entitic mass] 30.4 pg Normal 26.0-34.0 [facility] Comment on above: Order Comment: Speci men Type: BLOOD SPECIMENOrdering Facility: [facility] Address: [address] [place] [address] Performed By: #### 5 7021-8 ####[facility] LABORATORYCLIA [id number] [address] STATES [facility] MCHC (RBC) [Mass/Vol] 32.8 g/dL Normal 30.5-36.0 [facility] Comment on above: Order Comment: Speci men Type: BLOOD SPECIMENOrdering Facility: [facility] Address: [address] [place] [address] Performed By: #### 5 7021-8 ####[facility] LABORATORYCLIA [id number] [address] [place] MCV (RBC) [Entitic vol] 92.6 fL Normal 80.0-100.0 [facility] Comment on above: Order Comment: Speci men Type: BLOOD SPECIMENOrdering Facility: [facility] Address: [address] [place] [address] Performed By: #### 5 7021-8 ####[facility] LABORATORYCLIA [id number] [address] [place] Monocytes (Bld) [#/Vol] 0.42 10*3/uL Normal <0.87 [facility] Comment on above: Order Comment: Speci men Type: BLOOD SPECIMENOrdering Facility: [facility] Address: [address] [place] [address] Performed By: #### 5 7021-8 ####OSVALDO LABORATORYCLIA [id number] [place] [id number] [place] Monocytes/100 WBC (Bld) 11.2 % Normal [facility] Comment on above: Order Comment: Speci men Type: BLOOD SPECIMENOrdering Facility: [facility] Address: [address] [place] [address] Performed By: #### 5 7021-8 ####OSVALDO LABORATORYCLIA [id number] [place] [address] [place] Neutrophils (Bld) [#/Vol] 1.55 10*3/uL Normal 1.45-7.50 [facility] Comment on above: Order Comment: Speci men Type: BLOOD SPECIMENOrdering Facility: [facility] Address: [address] [place] [address] Performed By: #### 5 7021-8 ####OSVALDO LABORATORYCLIA [id number] [place] [address] [place] Neutrophils/100 WBC (Bld) 41.2 % Normal [facility] Comment on above: Order Comment: Speci men Type: BLOOD SPECIMENOrdering Facility: [facility] Address: [address] [place] [address] Performed By: #### 5 7021-8 ####OSVALDO LABORATORYCLIA [id number] [place] [id number] [place] Nucleated RBC (Bld) [#/Vol] 10*3/uL Normal <0.01 [facility] Comment on above: Order Comment: Speci men Type: BLOOD SPECIMENOrdering Facility: [facility] Address: [address] [place] [address] Performed By: #### 5 7021-8 ####OSVALDO LABORATORYCLIA [id number] [place] [address] [place] Nucleated RBC/100 WBC (Bld) [Ratio] 0.0 /100 WBC Normal [facility] Comment on above: Order Comment: Speci men Type: BLOOD SPECIMENOrdering Facility: [facility] Address: [address] [place] [address] Performed By: #### 5 7021-8 ####[facility] LABORATORYCLIA [id number] [place] [address] [place] Platelet mean volume (Bld) [Entitic vol] 11.0 fL Normal 9.0-12.7 [facility] Comment on above: Order Comment: Speci men Type: BLOOD SPECIMENOrdering Facility: [facility] Address: [address] [place] [address] Performed By: #### 5 7021-8 ####[facility] LABORATORYCLIA [id number] [place] [id number] [place] Platelets (Bld) [#/Vol] 212 10*3/uL Normal 150-400 [facility] Comment on above: Order Comment: Speci men Type: BLOOD SPECIMENOrdering Facility: [facility] Address: [address] [place] [address] Performed By: #### 5 7021-8 ####TREZEVANT LABORATORYCLIA [id number] [place] [address] [place] RBC (Bld) [#/Vol] 3.36 10*6/uL Low 3.90-5.20 [facility] Comment on above: Order Comment: Speci men Type: BLOOD SPECIMENOrdering Facility: [facility] Address: [address] [place] [address] Performed By: #### 5 7021-8 ####[facility] LABORATORYCLIA [id number] [place] [address] [place] WBC (Bld) [#/Vol] 3.76 10*3/uL Normal 3.70-11.00 [facility] Comment on above: Order Comment: Speci men Type: BLOOD SPECIMENOrdering Facility: [facility] Address: [address] [place] [address] Performed By: #### 5 7021-8 ####[facility] LABORATORYCLIA [id number] [place] [id number] [place] Magnesium SerPl-mCncon 07-17 Magnesium [Mass/Vol] 1.9 mg/dL Normal 1.7-2.3 [facility] Comment on above: Order Comment: Speci men Type: BLOOD SPECIMENOrdering Facility: [facility] Address: [address] [place] [address] Performed By: #### 2 777-1, 25888-8, ####TREZEVANT LABORATORYCLIA [id number] [place] [id number] [place] Phosphate SerPl-mCncon 07-17 Phosphate [Mass/Vol] 4.7 mg/dL Normal 2.7-4.8 [facility] Comment on above: Order Comment: Speci men Type: BLOOD SPECIMENOrdering Facility: [facility] Address: [address] [place] [address] Performed By: #### 2 777-1, 24535-2, ####TREZEVANT LABORATORYCLIA [id number] [place] [id number] [place] XR CHEST 1V FRONTAL PORTon 0 07-18-2023 XR CHEST 1V FRONTAL PORT Normal [facility] XR SMALL BOWEL SERIESon - XR SMALL BOWEL SERIES Normal [facility] Capillary blood glucose brie urement by glucometer (mass/volume)Ordered By: Camden Rodriguez on 07-17-2023 Glucose [Mass/Vol] 86 mg/dL Normal [facility] Comment on above: Random Glucose Refer ence Range is dependent on time and content of last meal. Glucose of more than 200 mg/dL in a nonstressed, ambulatory subject supports the diagnosis of Diabetes Mellitus. Result Comment: [place] Glucose Reference Range is dependent on time and content of last meal. Glucose of more than 200 mg/dL in a nonstressed, ambulatory subject supports the diagnosis of Diabetes Mellitus. PERFORMED BY: [facility] [address] [address] PATHOLOGIST MOLDER OPERATOR BAUTISTA BAKER M.D. Performed By: #### G LULS #### Point of Care testing , Glucose Poct Glucometerson 0 07-17-2023 Commemt1 Glu2: Cleaned Meter Normal [facility] Comment on above: Result Comment: PERF ORMED BY: [place] [address] PATHOLOGIST MOLDER OPERATOR BAUTISTA BAKER M.D. Performed By: #### A CORY, ElroyG, CUU #### [address] Glucose [Mass/Vol] 90 mg/dL Normal [facility] Comment on above: Result Comment: [facility] Glucose Reference Range is dependent on time and content of last meal. Glucose of more than 200 mg/dL in a nonstressed, ambulatory subject supports the diagnosis of Diabetes Mellitus. Performed By: #### A JOSESITO RAY, CUU #### [address] HISTORY PHYSICALon HISTORY PHYSICAL Normal [facility] NURSING PROGon 07-17-2023 NURSING PROG Normal [facility] No Panel InformationOrdered By: Camden Rodriguez on 07-17-2023 Bedside Glucose Comment Glu2: cleaned meter [facility] Alanine aminotransferase [En zymatic activity/volume] in Serum or PlasmaOrdered By: Shaan Sabillon on 07-16-2023 ALT [Catalytic activity/Vol] 39 U/L Normal 7-52 [facility] Comment on above: Performed By: #### A CORY ELIS, CUU #### [address] Albumin [Mass/volume] in Ser um or Plasma by Bromocresol green (BCG) dye binding methoOrdered By: Shaan Sabillon on 07-16-2023 Albumin BCG dye [Mass/Vol] 4.3 g/dL 3.5-5.7 [facility] Alkaline phosphatase [Enzyma tic activity/volume] in Serum or PlasmaOrdered By: Shaan Sabillon on 07-16-2023 ALP [Catalytic activity/Vol] 57 U/L Normal 34-104 [facility] Comment on above: Performed By: #### A JOSESITO RAY, CUU #### [address] Aspartate aminotransferase [ Enzymatic activity/volume] in Serum or PlasmaOrdered By: Shaan Sabillon on 07-16-2023 AST [Catalytic activity/Vol] 43 U/L High 13-39 [facility] Comment on above: Performed By: #### A JOSESITO RAY, CUU #### [address] Automated basophil %Ordered By: Shaan Sabillon on 07-16-2023 Basophils/100 WBC (Bld) 0.7 % Normal . [facility] Comment on above: Performed By: #### A JOSESITO RAY, CUU #### [address] Automated basophil countOrde red By: Shaan Sabillon on 07-16-2023 Basophils (Bld) [#/Vol] 0.0 10*3/uL Normal 0.0-0.2 [facility] Comment on above: Result Comment: PERF ORMED BY: [place] [address] PATHOLOGIST MOLDER OPERATOR BAUTISTA BAKER M.D. Performed By: #### A JOSESITO RAY, CUU #### [address] Automated blood monocyte cou ntOrdered By: Shaan Sabillon on 07-16-2023 Monocytes (Bld) [#/Vol] 0.3 10*3/uL Normal 0.0-0.8 [facility] Comment on above: Performed By: #### A JOSESITO RAY, CUU #### [address] Automated eosinophil %Ordere d By: Shaan Sabillon on 07-16-2023 Eosinophils/100 WBC (Bld) 0.5 % Normal . [facility] Comment on above: Performed By: #### A DDALIYAH BERNABEG, CUU #### [address] Automated eosinophil countOr dered By: Shaan Sabillon on 07-16-2023 Eosinophils (Bld) [#/Vol] 0.0 10*3/uL Normal 0.0-0.45 [facility] Comment on above: Performed By: #### A ALIYAH RAYG, CUU #### [address] Automated monocyte %Ordered By: Shaan Sabillon on 07-16-2023 Monocytes/100 WBC (Bld) 4.5 % Normal . [facility] Comment on above: Performed By: #### A JOSESITO RAY, CUU #### [address] Automated neutrophil %Ordere d By: Shaan Sabillon on 07-16-2023 Neutrophils/100 WBC (Bld) 75.6 % Normal . [facility] Comment on above: Performed By: #### A JOSESITO RAY, CUU #### [address] Basic Metabolic Panelon 06-17 Creatinine Clr Calc Pharmacy 117.42 Normal [facility] Comment on above: Performed By: #### A JOSESITO RAY, CUU #### [address] GFR/1.73 sq M.predicted MDRD (S/P/Bld) [Vol rate/Area] mL/min/{1.73_m2} Normal [facility] Comment on above: Performed By: #### A JOSESITO RAY, CUU #### [address] Bilirubin Test strip Ql (U)O rdered By: Shaan Sabillon on 07-16-2023 Bilirubin Ql (U) Negative Negative [facility] Bilirubin.direct [Mass/volum e] in Serum or PlasmaOrdered By: Shaan Sabillon on 07-16-2023 Bilirubin.direct [Mass/Vol] 0.10 mg/dL 0.03-0.18 [facility] Bilirubin.total [Mass/volume ] in Serum or PlasmaOrdered By: Shaan Sabillon on 07-16-2023 Bilirubin [Mass/Vol] 0.6 mg/dL Normal 0.3-1.0 [facility] Comment on above: Performed By: #### A DDFAIZAUAJESSICA, UHCG, CUU #### [facility] [address] abdomen pelvis w conon CT abdomen pelvis w con [facility] [address] [place] [address] [place] [address] CT Scan Report Signed Patient: Abbey Garcia MR#: [id number] : 1990 Acct:[id number] Age/Sex: 33 / F ADM Date: 07/16/23 Loc: ER Room: Type: [facility] ER Attending Dr: Copies to: Shaan [...] Medel Jr., DRenettaORenetta07/16/2023 4:09 PM Dictation Location: [place] [address] Transcribed By: [facility] 07/16/23 1609 Dictated By: Cornel Medel Jr, DO 07/16/23 1606 Signed By: 07/16/23 1609 Normal [facility] Calcium [Mass/volume] in Ser um or PlasmaOrdered By: Shaan Sabillon on 07-16-2023 Calcium [Mass/Vol] 8.9 mg/dL Normal 8.6-10.3 [facility] Comment on above: Performed By: #### A DDONUAPLUS, UHCG, CUU #### [facility] [address] [place] [address] Carbon dioxide, total [Moles /volume] in Serum or PlasmaOrdered By: Shaan Sabillon on 07-16-2023 CO2 [Moles/Vol] 24.2 mmol/L Normal 21.0-31.[address] [facility] Comment on above: Performed By: #### A DDONUAPLUS, UHCG, CUU #### [facility] [address] [place] [address] [place] Chloride [Moles/volume] in S elder or PlasmaOrdered By: Shaan Sabillon on 07-16-2023 Chloride [Moles/Vol] 107 mmol/L Normal 98-107 [facility] Comment on above: Performed By: #### A DDONUAPLUS, UHCG, CUU #### [facility] [address] [place], [place] [id number] [place] Color of Urine by AutoOrdere d By: Shaan Sabillon on 07-16-2023 Color (U) Yellow Normal Yellow [facility] Comment on above: Order Comment: Name Collection Type:: Clean-Voided Midstream Performed By: #### A DDONUAPLUS, UHCG, CUU #### [facility] [address] [place] [address] [place] Complete Blood Count Auto Di ffon 07-16-2023 Mean Corpuscular HGB Conc 34.2 g/dL Normal 32.0-35.0 [facility] Comment on above: Performed By: #### A DDBRITTANIE BERNABECG, CUU #### [address] Monocytes/100 WBC (Bld) 16.79 % Normal 0.00-20.00 [facility] Comment on above: Performed By: #### A DDFLORECITA, UHCG, CUU #### [address] NRBC% 0.0 /100{WBC} Normal 0-0.5 [facility] Comment on above: Performed By: #### A DDONDAVON UHCG, CUU #### [address] Creatinine [Mass/volume] in Serum or PlasmaOrdered By: Shaan Sabillon on 07-16-2023 Creatinine [Mass/Vol] 0.72 mg/dL Normal 0.60-1.20 [facility] Comment on above: Performed By: #### A BRITTANIE RAYCG, CUU #### [address] Erythrocyte distribution wid th [Ratio] by Automated countOrdered By: Shaan Sabillon on 07-16-2023 Erythrocyte distribution width (RBC) [Ratio] 14.4 % Normal 11.9-15.3 [facility] Comment on above: Performed By: #### A DDONDAVON, UHCG, CUU #### [address] Erythrocytes [#/volume] in B lood by Automated countOrdered By: Shaan Sabillon on 07-16-2023 RBC (Bld) [#/Vol] 3.67 10*6/uL Normal 3.60-5.00 [facility] Comment on above: Performed By: #### A DDONUAJESSICA, UHCG, CUU #### [address] Glucose [Mass/volume] in Ser um or PlasmaOrdered By: Shaan Sabillon on 07-16-2023 Glucose [Mass/Vol] 82 mg/dL Normal 70-100 [facility] Comment on above: ADA recommended refe rence rangeRandom Glucose Reference Range is dependent on time and content of last meal. Glucose of more than 200 mg/dL in a nonstressed, ambulatory subject supports the diagnosis of Diabetes Mellitus. Result Comment: [place] om Glucose Reference Range is dependent on time and content of last meal. Glucose of more than 200 mg/dL in a nonstressed, ambulatory subject supports the diagnosis of Diabetes Mellitus. ADA recommended reference range Performed By: #### A JOSESITO RAY, CUU #### [address] HCG ( test) IA.rapi d Ql (U)Ordered By: Shaan Sabillon on 07-16-2023 HCG ( test) Ql (U) Negative [facility] HCG,Urineon 07-16-2023 Beta HCG ( test) Ql (U) Negative Normal [facility] Comment on above: Order Comment: Name Collection Type:: Clean-Voided Midstream Result Comment: PERF ORMED BY: [place] [address] PATHOLOGIST MOLDER OPERATOR BAUTISTA BAKER M.D. Performed By: #### A JOSESITO RAY, CUU #### [address] Hematocrit [Volume Fraction] of Blood by Automated countOrdered By: Shaan Sabillon on 07-16-2023 Hematocrit (Bld) [Volume fraction] 32.8 % Low 34.0-46.4 [facility] Comment on above: Performed By: #### A JOSESITO RAY, CUU #### [address] Hemoglobin [Mass/volume] in BloodOrdered By: Shaan Sabillon on 07-16-2023 Hemoglobin (Bld) [Mass/Vol] 11.2 g/dL Low 11.8-15.4 [facility] Comment on above: Performed By: #### A DDONUAJESSICA, UHCG, CUU #### [address] Hepatic Panelon 07-16-2023 Albumin [Mass/Vol] 4.3 g/dL Normal 3.5-5.7 [facility] Comment on above: Performed By: #### A DDONUAJESSICA, UHCG, CUU #### [address] Bilirubin,Indirect 0.5 mg/dL Normal [facility] Comment on above: Performed By: #### A DDONUAJESSICA, UHCG, CUU #### [address] Bilirubin.indirect [Mass/Vol] 0.10 mg/dL Normal 0.03-0.18 [facility] Comment on above: Performed By: #### A DDONUABRITTANIE LOPEZCG, CUU #### [address] Ketones Auto test strip (U) [Mass/Vol]Ordered By: Shaan Sabillon on 07-16-2023 Ketones (U) [Mass/Vol] Negative Negative [facility] Leukocytes [#/volume] correc darvin for nucleated erythrocytes in Blood by Automated counOrdered By: Shaan Sabillon on 07-16-2023 WBC corrected for nucl RBC Auto (Bld) [#/Vol] 6.9 10*3/uL 3.8-11.6 [facility] Leukocytes [#/volume] in Blo od by Automated countOrdered By: Shaan Sabillon on 07-16-2023 WBC (Bld) [#/Vol] 6.9 10*3/uL Normal 3.8-11.6 [facility] Comment on above: Performed By: #### A DDONUAPLUS, UHCG, CUU #### [address] Lipase [Enzymatic activity/v olume] in Serum or PlasmaOrdered By: Shaan Sabillon on 07-16-2023 Lipase [Catalytic activity/Vol] 45.0 U/L Normal 11.0-82.0 [facility] Comment on above: Result Comment: PERF ORMED BY: [place] [address] PATHOLOGIST MOLDER OPERATOR BAUTISTA BAKER M.D. Performed By: #### A CORY, JOSESITO, CUU #### [address] Lymphocytes [#/volume] in Bl ood by Automated countOrdered By: Shaan Sabillon on 07-16-2023 Lymphocytes (Bld) [#/Vol] 1.3 10*3/uL Normal 1.00-4.8 [facility] Comment on above: Performed By: #### A JOSESITO RAY, CUU #### [address] Lymphocytes/100 leukocytes i n Blood by Automated countOrdered By: Shaan Sabillon on 07-16-2023 Lymphocytes/100 WBC (Bld) 18.7 % Normal . [facility] Comment on above: Performed By: #### A CORY ELIS, CUU #### [address] MCH [Entitic mass] by Automa darvin countOrdered By: Shaan Sabiloln on 07-16-2023 MCH (RBC) [Entitic mass] 30.5 pg Normal 24.7-34.3 [facility] Comment on above: Performed By: #### A CORY, JOSESITO, CUU #### [address] MCHC Auto (RBC) [Mass/Vol]Or dered By: Shaan Sabillon on 07-16-2023 MCHC (RBC) [Mass/Vol] 34.2 g/dL 32.0-35.0 [facility] MCV [Entitic volume] by Auto mated countOrdered By: Shaan Sabillon on 07-16-2023 MCV (RBC) [Entitic vol] 89.2 fL Normal 80-100 [facility] Comment on above: Performed By: #### A JOSESITO RAY, CUU #### [facility] [address] Monocyte distribution width [Entitic volume] in Blood by AutomatedOrdered By: Shaan Sabillon on 07-16-2023 Monocyte distribution width Auto (Bld) [Entitic vol] 16.79 % 0.00-20.00 [facility] Neutrophils [#/volume] in Bl ood by Automated countOrdered By: Shaan Sabillon on 07-16-2023 Neutrophils (Bld) [#/Vol] 5.2 10*3/uL Normal 1.8-7.7 [facility] Comment on above: Performed By: #### A JOSESITO RAY, CUU #### [facility] [address] [place] [address] Nitrite Test strip Ql (U)Ord ered By: Shaan Sabillon on 07-16-2023 Nitrite Ql (U) Negative Negative [facility] No Panel InformationOrdered By: Shaan Sabillon on 07-16-2023 Estimated GFR (CKD-EPI) > 60.0 mL/Min [facility] Creatinine Clearance (Chem 117.42 [facility] Nucleated erythrocytes [Pres ence] in Blood by Automated countOrdered By: Shaan Sabillon on 07-16-2023 Nucleated RBC Auto Ql (Bld) 0.0 /100{WBC} 0-0.5 [facility] Platelet mean volume [Entiti c volume] in Blood by Automated countOrdered By: Shaan Sabillon on 07-16-2023 Platelet mean volume (Bld) [Entitic vol] 9.0 fL Normal 6.3-10.7 [facility] Comment on above: Performed By: #### A JOSESITO RAY, CUU #### [facility] [address] [place] [address] Platelets [#/volume] in Bloo d by Automated countOrdered By: Shaan Sabillon on 07-16-2023 Platelets (Bld) [#/Vol] 282 10*3/uL Normal 150-450 [facility] Comment on above: Performed By: #### A JOSESITO RAY, CUU #### [address] Potassium [Moles/volume] in Serum or PlasmaOrdered By: Shaan Sabillon on 07-16-2023 Potassium [Moles/Vol] 3.7 mmol/L Normal 3.5-5.1 [facility] Comment on above: Performed By: #### A JOSESITO RAY, CUU #### [address] Protein Auto test strip (U) [Mass/Vol]Ordered By: Shaan Sabillon on 07-16-2023 Protein (U) [Mass/Vol] Negative Negative [facility] Protein [Mass/volume] in Ser um or PlasmaOrdered By: Shaan Sabillon on 07-16-2023 Protein [Mass/Vol] 6.8 g/dL Normal 6.4-8.9 [facility] Comment on above: Performed By: #### A JOSESITO RAY, CUU #### [address] Serum globulin measurement b y calculation (mass/volume)Ordered By: Shaan Sabillon on 07-16-2023 Globulin (S) [Mass/Vol] 2.5 g/dL Normal [facility] Comment on above: Performed By: #### A JOSESITO RAY, CUU #### [address] Serum or plasma albumin/glob ulin mass ratioOrdered By: Shaan Sabillon on 07-16-2023 Albumin/Globulin [Mass ratio] 1.7 {ratio} [facility] Comment on above: Performed By: #### A JOSESITO RAY, CUU #### [address] Serum or plasma anion gap de terminationOrdered By: Shaan Sabillon on 07-16-2023 Anion gap [Moles/Vol] 9.5 mmol/L Normal 6.0-15.0 [facility] Comment on above: Performed By: #### A JOSESITO RAY, CUU #### [facility] [address] Serum or plasma non-glucuron idated bilirubin measurement (mass/volume)Ordered By: Shaan Sabillon on 07-16-2023 Bilirubin.indirect [Mass/Vol] 0.5 mg/dL [facility] Sodium [Moles/volume] in Ser um or PlasmaOrdered By: Shaan Sabillon on 07-16-2023 Sodium [Moles/Vol] 137 mmol/L Normal 136-145 [facility] Comment on above: Performed By: #### A DDFAIZAUAPLUS, BRITTANIECG, CUU #### [address] Specific gravity Auto test s trip (U) [Rel density]Ordered By: Shaan Sabillon on 07-16-2023 Specific gravity (U) [Rel density] 1.006 1.001-1.030 [facility] Urea nitrogen [Mass/volume] in Serum or PlasmaOrdered By: Shaan Sabillon on 07-16-2023 Urea nitrogen [Mass/Vol] 14 mg/dL Normal 7-25 [facility] Comment on above: Performed By: #### A DDFAIZAUAPLUSBRITTANIECG, CUU #### [address] Urinalysison 07-16-2023 Appearance (U) Clear Normal Clear [facility] Comment on above: Order Comment: Name Collection Type:: Clean-Voided Midstream Performed By: #### A DDONUAPLUS, UHCG, CUU #### [address] Bilirubin,Urine Negative Normal Negative [facility] Comment on above: Order Comment: Name Collection Type:: Clean-Voided Midstream Performed By: #### A DDONUAPLUS, UHCG, CUU #### [address] Glucose Ql (U) Normal Normal Normal [facility] Comment on above: Order Comment: Name Collection Type:: Clean-Voided Midstream Performed By: #### A DDONUAPLUS, UHCG, CUU #### [place] [address] [place] Ketones Ql (U) Negative Normal Negative [facility] Comment on above: Order Comment: Name Collection Type:: Clean-Voided Midstream Performed By: #### A DDONUAPLUS, UHCG, CUU #### [address] Leukocyte esterase Test strip Ql (U) Negative Normal Negative [facility] Comment on above: Order Comment: Name Collection Type:: Clean-Voided Midstream Performed By: #### A DDONUAPLUS, UHCG, CUU #### [place] [address] [place] Nitrite,Urine Negative Normal Negative [facility] Comment on above: Order Comment: Name Collection Type:: Clean-Voided Midstream Performed By: #### A DDONUAPLUS, UHCG, CUU #### [place] [address] [place] Occult Blood,Urine Negative Normal Negative [facility] Comment on above: Order Comment: Name Collection Type:: Clean-Voided Midstream Performed By: #### A DDONUAPLUS, UHCG, CUU #### [place] [address] [place] Protein,Urine Negative Normal Negative [facility] Comment on above: Order Comment: Name Collection Type:: Clean-Voided Midstream Performed By: #### A DDONUAPLUS, UHCG, CUU #### [place] [address] [place] Specificy [place],Urine 1.006 Normal 1.001-1.030 [facility] Comment on above: Order Comment: Name Collection Type:: Clean-Voided Midstream Performed By: #### A DDONUAPLUS, UHCG, CUU #### [place] [address] [place] Urobilinogen,Urine Normal Normal Normal [facility] Comment on above: Order Comment: Name Collection Type:: Clean-Voided Midstream Performed By: #### A DDONUAPLUS, UHCG, CUU #### [facility] [address] Urine clarity by refractomet ry automatedOrdered By: Shaan Sabillon on 07-16-2023 Clarity Refractometry automated (U) Clear Clear [facility] Urine glucose measurement by automated test strip (mass/volume)Ordered By: Shaan Sabillon on 07-16-2023 Glucose Auto test strip (U) [Mass/Vol] Normal mg/dL Normal [facility] Urine hemoglobin detection b y automated test stripOrdered By: Shaan Sabillon on 07-16-2023 Hemoglobin Auto test strip Ql (U) Negative Negative [facility] Urine leukocyte esterase det ection by automated test stripOrdered By: Shaan Sabillon on 07-16-2023 Leukocyte esterase Auto test strip Ql (U) Negative Negative [facility] Urine pH measurement by auto mated test stripOrdered By: Shaan Sabillon on 07-16-2023 pH (U) 7.5 [pH] Normal 5.0-9.0 [facility] Comment on above: Order Comment: Name Collection Type:: Clean-Voided Midstream Performed By: #### A DDONUAPLUS, UHCG, CUU #### [facility] [address] Urobilinogen Auto test strip (U) [Mass/Vol]Ordered By: Shaan Sabillon on 07-16-2023 Urobilinogen (U) [Mass/Vol] Normal mg/dL Normal [facility] CNPNon 07-13-2023 CNPN Normal [facility] Basic metabolic 2000 panelon 07-06-2023 Anion gap [Moles/Vol] 11 mmol/L Normal 9-18 [facility] Comment on above: Order Comment: Speci men Type: BLOOD SPECIMENOrdering Facility: [facility] Address: [address] [place] [address] Performed By: #### 2 4321-2 ####[facility] LABCLIA [id number] [facility] [id number] [address] [place] Calcium [Mass/Vol] 8.7 mg/dL Normal 8.5-10.2 [facility] Comment on above: Order Comment: Speci men Type: BLOOD SPECIMENOrdering Facility: [facility] Address: [address] [place] [address] Performed By: #### 2 4321-2 ####[facility] LABCLIA [id number] [place] [address] [place] Chloride [Moles/Vol] 110 mmol/L High 97-105 [facility] Comment on above: Order Comment: Speci men Type: BLOOD SPECIMENOrdering Facility: [facility] Address: [address] [place] [address] Performed By: #### 2 4321-2 ####[facility] LABCLIA [id number] [place] [address] [place] CO2 [Moles/Vol] 20 mmol/L Low 22-30 [facility] Comment on above: Order Comment: Speci men Type: BLOOD SPECIMENOrdering Facility: [facility] Address: [address] [place] [address] Performed By: #### 2 4321-2 ####[facility] LABCLIA [id number] [place] [address] [place] Creatinine [Mass/Vol] 0.64 mg/dL Normal 0.58-0.96 [facility] Comment on above: Order Comment: Speci men Type: BLOOD SPECIMENOrdering Facility: [facility] Address: [address] [place] [address] Performed By: #### 2 4321-2 ####[facility] LABCLIA [id number] [place] [address] [place] Creatinine and Glomerular filtration rate.predicted panel (S/P/Bld) 119 mL/min/1.73m??? Normal >=60 [facility] Comment on above: Order Comment: Speci men Type: BLOOD SPECIMENOrdering Facility: [facility] Address: [address] [place] [address] Result Comment: Jessica mated Glomerular Filtration Rate [...] Performed By: #### 2 4321-2 ####[facility] LABCLIA [id number] [place] [address] [place] Glucose [Mass/Vol] 89 mg/dL Normal 74-99 [facility] Comment on above: Order Comment: Speci men Type: BLOOD SPECIMENOrdering Facility: [facility] Address: [address] [place] [address] Result Comment: The [place] [employer] (ADA) provides guidance for cutoff [...] Standards of Medical Care in Diabetes 2016, [place] [employer]. Diabetes Care. 2016.39(Suppl 1). Performed By: #### 2 4321-2 ####[facility] LABCLIA [id number] [place] [address] [place] Potassium [Moles/Vol] 3.9 mmol/L Normal 3.7-5.1 [facility] Comment on above: Order Comment: Geraldo marrero Type: BLOOD SPECIMENOrdering Facility: [facility] Address: [address] [place] [address] Performed By: #### 2 4321-2 ####[facility] LABCLIA [id number] [place] [address] [place] Sodium [Moles/Vol] 141 mmol/L Normal 136-144 [facility] Comment on above: Order Comment: Speci men Type: BLOOD SPECIMENOrdering Facility: [facility] Address: [address] [place] [address] Performed By: #### 2 4321-2 ####[facility] LABCLIA [id number] [place] [address] [place] Urea nitrogen [Mass/Vol] 14 mg/dL Normal 7- [facility] Comment on above: Order Comment: Speci men Type: BLOOD SPECIMENOrdering Facility: [facility] Address: [address] [place] [address] Performed By: #### 2 4321-2 ####[facility] LABCLIA [id number] [place] [address] [place] CBC W Auto Differential pane l (Bld)on 07-06-2023 Basophils (Bld) [#/Vol] 10*3/uL Normal <0.11 [facility] Comment on above: Order Comment: Speci men Type: BLOOD SPECIMENOrdering Facility: [facility] Address: [address] [place] [address] Performed By: #### 5 7021-8 ####[facility] LABCLIA [id number] [place] [address] [place] Basophils/100 WBC (Bld) 0.5 % Normal [facility] Comment on above: Order Comment: Speci men Type: BLOOD SPECIMENOrdering Facility: [facility] Address: [address] [place] [address] Performed By: #### 5 7021-8 ####[facility] LABCLIA [id number] [place] [address] [place] Differential cell count method Nom (Bld) Auto Normal [facility] Comment on above: Order Comment: Speci men Type: BLOOD SPECIMENOrdering Facility: [facility] Address: [address] [place] [address] Performed By: #### 5 7021-8 ####[facility] LABCLIA [id number] [place] [address] [place] Eosinophils (Bld) [#/Vol] 10*3/uL Normal <0.46 [facility] Comment on above: Order Comment: Speci men Type: BLOOD SPECIMENOrdering Facility: [facility] Address: [address] [place] [address] Performed By: #### 5 7021-8 ####[facility] LABCLIA [id number] [place] [address] [place] Eosinophils/100 WBC (Bld) 0.2 % Normal [facility] Comment on above: Order Comment: Speci men Type: BLOOD SPECIMENOrdering Facility: [facility] Address: [address] [place] [address] Performed By: #### 5 7021-8 ####[facility] LABCLIA [id number] [place] [address] [place] Erythrocyte distribution width (RBC) [Ratio] 14.0 % Normal 11.5-15.0 [facility] Comment on above: Order Comment: Speci men Type: BLOOD SPECIMENOrdering Facility: [facility] Address: [address] [place] [address] Performed By: #### 5 7021-8 ####[facility] LABCLIA [id number] [place] [address] [place] Hematocrit (Bld) [Volume fraction] 30.6 % Low 36.0-46.0 [facility] Comment on above: Order Comment: Speci men Type: BLOOD SPECIMENOrdering Facility: [facility] Address: [address] [place] [address] Performed By: #### 5 7021-8 ####[facility] LABCLIA [id number] [place] [address] [place] Hemoglobin (Bld) [Mass/Vol] 10.5 g/dL Low 11.5-15.5 [facility] Comment on above: Order Comment: Speci men Type: BLOOD SPECIMENOrdering Facility: [facility] Address: [address] [place] [address] Performed By: #### 5 7021-8 ####[facility] LABCLIA [id number] [place] [address] [place] Immature granulocytes (Bld) [#/Vol] 10*3/uL Normal <0.10 [facility] Comment on above: Order Comment: Speci men Type: BLOOD SPECIMENOrdering Facility: [facility] Address: [address] [place] [address] Performed By: #### 5 7021-8 ####[facility] LABCLIA [id number] [place] [address] [place] Immature granulocytes/100 WBC (Bld) 0.2 % Normal [facility] Comment on above: Order Comment: Speci men Type: BLOOD SPECIMENOrdering Facility: [facility] Address: [address] [place] [address] Performed By: #### 5 7021-8 ####[facility] LABCLIA [id number] [place] [address] [place] Lymphocytes (Bld) [#/Vol] 1.37 10*3/uL Normal 1.00-4.00 [facility] Comment on above: Order Comment: Speci men Type: BLOOD SPECIMENOrdering Facility: [facility] Address: [address] [place] [address] Performed By: #### 5 7021-8 ####[facility] LABCLIA [id number] [place] [address] [place] Lymphocytes/100 WBC (Bld) 31.2 % Normal [facility] Comment on above: Order Comment: Speci men Type: BLOOD SPECIMENOrdering Facility: [facility] Address: [address] [place] [address] Performed By: #### 5 7021-8 ####[facility] LABCLIA [id number] [place] [address] [place] MCH (RBC) [Entitic mass] 31.3 pg Normal 26.0-34.0 [facility] Comment on above: Order Comment: Speci men Type: BLOOD SPECIMENOrdering Facility: [facility] Address: [address] [place] [address] Performed By: #### 5 7021-8 ####[facility] LABIA [id number] [place] [address] [place] MCHC (RBC) [Mass/Vol] 34.3 g/dL Normal 30.5-36.0 [facility] Comment on above: Order Comment: Speci men Type: BLOOD SPECIMENOrdering Facility: [facility] Address: [address] [place] [address] Performed By: #### 5 7021-8 ####[facility] LABIA [id number] [place] [address] [place] MCV (RBC) [Entitic vol] 91.1 fL Normal 80.0-100.0 [facility] Comment on above: Order Comment: Speci men Type: BLOOD SPECIMENOrdering Facility: [facility] Address: [address] [place] [address] Performed By: #### 5 7021-8 ####[facility] LABCLIA [id number] [place] [address] [place] Monocytes (Bld) [#/Vol] 0.36 10*3/uL Normal <0.87 [facility] Comment on above: Order Comment: Speci men Type: BLOOD SPECIMENOrdering Facility: [facility] Address: [address] [place] [address] Performed By: #### 5 7021-8 ####[facility] LABCLIA [id number] [place] [address] [place] Monocytes/100 WBC (Bld) 8.2 % Normal [facility] Comment on above: Order Comment: Speci men Type: BLOOD SPECIMENOrdering Facility: [facility] Address: [address] [place] [address] Performed By: #### 5 7021-8 ####[facility] LABCLIA [id number] [place] [address] [place] Neutrophils (Bld) [#/Vol] 2.62 10*3/uL Normal 1.45-7.50 [facility] Comment on above: Order Comment: Speci men Type: BLOOD SPECIMENOrdering Facility: [facility] Address: [address] [place] [address] Performed By: #### 5 7021-8 ####[facility] LABCLIA [id number] [place] [address] [place] Neutrophils/100 WBC (Bld) 59.7 % Normal [facility] Comment on above: Order Comment: Speci men Type: BLOOD SPECIMENOrdering Facility: [facility] Address: [address] [place] [address] Performed By: #### 5 7021-8 ####[facility] LABIA [id number] [place] [address] [place] Nucleated RBC (Bld) [#/Vol] 10*3/uL Normal <0.01 [facility] Comment on above: Order Comment: Speci men Type: BLOOD SPECIMENOrdering Facility: [facility] Address: [address] [place] [address] Performed By: #### 5 7021-8 ####[facility] LABCLIA [id number] [place] [address] [place] Nucleated RBC/100 WBC (Bld) [Ratio] 0.0 /100 WBC Normal [facility] Comment on above: Order Comment: Speci men Type: BLOOD SPECIMENOrdering Facility: [facility] Address: [address] [place] [address] Performed By: #### 5 7021-8 ####[facility] LABCLIA [id number] [place] [address] [place] Platelet mean volume (Bld) [Entitic vol] 11.2 fL Normal 9.0-12.7 [facility] Comment on above: Order Comment: Speci men Type: BLOOD SPECIMENOrdering Facility: [facility] Address: [address] [place] [address] Performed By: #### 5 7021-8 ####[facility] LABIA [id number] [place] [address] [place] Platelets (Bld) [#/Vol] 219 10*3/uL Normal 150-400 [facility] Comment on above: Order Comment: Speci men Type: BLOOD SPECIMENOrdering Facility: [facility] Address: [address] [place] [address] Performed By: #### 5 7021-8 ####[facility] LABIA [id number] [place] [address] [place] RBC (Bld) [#/Vol] 3.36 10*6/uL Low 3.90-5.20 [facility] Comment on above: Order Comment: Speci men Type: BLOOD SPECIMENOrdering Facility: [facility] Address: [address] [place] [address] Performed By: #### 5 7021-8 ####[facility] LABCLIA [id number] [place] [address] [place] WBC (Bld) [#/Vol] 4.39 10*3/uL Normal 3.70-11.00 [facility] Comment on above: Order Comment: Speci men Type: BLOOD SPECIMENOrdering Facility: [facility] Address: [address] [place] [address] Performed By: #### 5 7021-8 ####[facility] LABCLIA [id number] [place] [address] [place] CNOVon 07-06-2023 CNOV Normal [facility] CNPTOUTREACHon 07-06-2023 CNPTOUTREACH Normal [facility] CT FLANK WO IVCONon 07-06-19 CT FLANK WO IVCON [facility] [place] ED NOTEon 07-06-2023 ED NOTE Normal [facility] ED NOTE HNO ID: [id number] Author: TG MUNOZ, DEE Service: Emergency Medicine Author Type: Registered Nurse Type: ED Notes Filed: 07/06/2023 20:35 Note Text: 0 mL post void residual. Normal [facility] ED NOTE HNO ID: [id number] Author: CORIE LINK, DEE Service: ? Author Type: Registered Nurse Type: ED Notes Filed: 07/06/2023 15:58 Note Text: Bed: E18-10 Expected date: Expected time: Means of arrival: Comments: HOLD: JOSE Normal [facility] ED PROV NOTEon 07-06-2023 ED PROV NOTE Normal [facility] ED Triage Noteon 07-06-2023 ED Triage Note Normal [facility] URINALYSIS, REFLEX MICROSCOP ICon 07-06-2023 Bilirubin Ql (U) Negative Negative [facility] Clarity (Unsp spec) Clear Clear [facility] Color (U) Light Yellow Yellow [facility] Glucose Test strip (U) [Mass/Vol] Negative Trace, Negative [facility] Hemoglobin Ql (U) Negative Negative, Trace [facility] Interpretation and review of laboratory results Normal [facility] Ketones Ql (U) Negative Negative, Trace [facility] Leukocyte esterase Test strip Ql (U) Negative Negative, 25 Patito/uL [facility] Nitrite Ql (U) Negative Negative [facility] pH (U) 7.0 [pH] 5.0 - 8.0 [facility] Protein (U) [Mass/Vol] Negative Trace, Negative [facility] Specific gravity (U) [Rel density] 1.010 1.005 - 1.030 [facility] Urobilinogen Ql (U) Normal Normal [facility] Bilirubin Ql (U) Negative Normal Negative [facility] Comment on above: Order Comment: Speci men Type: URINE SPECIMENOrdering Facility: [facility] Address: [address] [id number] Performed By: #### L [id number] ####[facility] LABCLIA [id number] [place] [address] [place] Clarity (Unsp spec) Clear Normal Clear [facility] Comment on above: Order Comment: Speci men Type: URINE SPECIMENOrdering Facility: [facility] Address: [address] [place] [address] Performed By: #### L [id number] ####[facility] LABCLIA [id number] [place] [address] [place] Color (U) Light Yellow Normal Yellow [facility] Comment on above: Order Comment: Speci men Type: URINE SPECIMENOrdering Facility: [facility] Address: [address] [place] [address] Performed By: #### L [id number] ####[facility] LABCLIA [id number] [place] [address] [place] Glucose Test strip (U) [Mass/Vol] Negative Normal Trace, Negative [facility] Comment on above: Order Comment: Speci men Type: URINE SPECIMENOrdering Facility: [facility] Address: [address] [place] [address] Performed By: #### L [id number] ####[facility] LABCLIA [id number] [place] [address] [place] Hemoglobin Ql (U) Negative Normal Negative, Trace Cl [facility] Comment on above: Order Comment: Speci men Type: URINE SPECIMENOrdering Facility: [facility] Address: [address] [place], [place] [address] Performed By: #### L [id number] ####[facility] LABCLIA [id number] [place] [address] [place] Ketones Ql (U) Negative Normal Negative, Trace [facility] Comment on above: Order Comment: Speci men Type: URINE SPECIMENOrdering Facility: [facility] Address: [address] [place] [address] Performed By: #### L [id number] ####[facility] LABCLIA [id number] [place] [address] [place] Leukocyte esterase Test strip Ql (U) Negative Normal Negative, 25 Patito/uL [facility] Comment on above: Order Comment: Speci men Type: URINE SPECIMENOrdering Facility: [facility] Address: [address] [place] [address] Performed By: #### L [id number] ####[facility] LABCLIA [id number] [place] [address] [place] Nitrite Ql (U) Negative Normal Negative [facility] Comment on above: Order Comment: Speci men Type: URINE SPECIMENOrdering Facility: [facility] Address: [address] [place] [address] Performed By: #### L [id number] ####[facility] LABCLIA [id number] [place] [address] [place] pH (U) 7.0 [pH] Normal 5.0-8.0 [facility] Comment on above: Order Comment: Speci men Type: URINE SPECIMENOrdering Facility: [facility] Address: [address] [place] [address] Performed By: #### L [id number] ####[facility] LABCLIA [id number] [place] [address] [place] Protein (U) [Mass/Vol] Negative Normal Trace, Negative [facility] Comment on above: Order Comment: Speci men Type: URINE SPECIMENOrdering Facility: [facility] Address: [address] [place] [address] Performed By: #### L [id number] ####[facility] LABCLIA [id number] [place] [address] [place] Specific gravity (U) [Rel density] 1.010 Normal 1.005-1.030 [facility] Comment on above: Order Comment: Speci men Type: URINE SPECIMENOrdering Facility: [facility] Address: [address] [place] [address] Performed By: #### L [id number] ####[facility] LABIA [id number] [place] [address] [place] Urobilinogen Ql (U) Normal Normal Normal [facility] Comment on above: Order Comment: Speci men Type: URINE SPECIMENOrdering Facility: [facility] Address: [address] [place] [address] Performed By: #### L [id number] ####[facility] LABIA [id number] [place] [address] [place] Urinalysis complete panel (U )on 07-06-2023 Bacteria LM.HPF (Urine sed) [#/Area] Negative Normal Negative [facility] Comment on above: Order Comment: Speci men Type: URINE SPECIMENOrdering Facility: [facility] Address: [address] [place] [address] Performed By: #### 2 4356-8 ####[facility] LABIA [id number] [place] [address] [place] Bilirubin Ql (U) Negative Normal Negative [facility] Comment on above: Order Comment: Speci men Type: URINE SPECIMENOrdering Facility: [facility] Address: [address] [place] [address] Performed By: #### 2 4356-8 ####[facility] LABIA [id number] [place] [address] [place] Clarity (Unsp spec) Clear Normal Clear [facility] Comment on above: Order Comment: Speci men Type: URINE SPECIMENOrdering Facility: [facility] Address: [address] [place] [address] Performed By: #### 2 4356-8 ####[facility] LABCLIA [id number] [place] [address] [place] [facility] Color (U) Yellow Normal Yellow [facility] Comment on above: Order Comment: Speci men Type: URINE SPECIMENOrdering Facility: [facility] Address: [address] [place] [address] Performed By: #### 2 4356-8 ####[facility] LABCLIA [id number] [place] [address] [place] Epithelial cells LM.HPF (Urine sed) [#/Area] None Seen Normal [facility] Comment on above: Order Comment: Speci men Type: URINE SPECIMENOrdering Facility: [facility] Address: [address] [place] [address] Performed By: #### 2 4356-8 ####[facility] LABCLIA [id number] [address] STATES [place] [facility] Glucose Test strip (U) [Mass/Vol] Negative Normal Negative [facility] Comment on above: Order Comment: Speci men Type: URINE SPECIMENOrdering Facility: [facility] Address: [address] [place] [address] Performed By: #### 2 4356-8 ####[facility] LABCLIA [id number] [place] [address] [place] Hemoglobin Ql (U) Negative Normal Negative [facility] Comment on above: Order Comment: Speci men Type: URINE SPECIMENOrdering Facility: [facility] Address: [address] [place] [address] Performed By: #### 2 4356-8 ####[facility] LABCLIA [id number] [place] [address] [place] Hyaline casts (Urine sed) [#/Area] 0 /[LPF] Normal 0 /LPF [facility] Comment on above: Order Comment: Speci men Type: URINE SPECIMENOrdering Facility: [facility] Address: [address] [place] [address] Performed By: #### 2 4356-8 ####[facility] LABCLIA [id number] [place] [address] [place] Ketones Ql (U) Negative Normal Negative [facility] Comment on above: Order Comment: Speci men Type: URINE SPECIMENOrdering Facility: [facility] Address: [address] [place] [address] Performed By: #### 2 4356-8 ####[facility] LABCLIA [id number] [place] [address] [place] Leukocyte esterase Test strip Ql (U) Negative Normal Negative [facility] Comment on above: Order Comment: Speci men Type: URINE SPECIMENOrdering Facility: [facility] Address: [address] [place] [address] Performed By: #### 2 4356-8 ####[facility] LABCLIA [id number] [place] [address] [place] Nitrite Ql (U) Negative Normal Negative [facility] Comment on above: Order Comment: Speci men Type: URINE SPECIMENOrdering Facility: [facility] Address: [address] [place] [address] Performed By: #### 2 4356-8 ####[facility] LABCLIA [id number] [place] [address] [place] pH (U) 7.5 [pH] Normal <8.5 [facility] Comment on above: Order Comment: Speci men Type: URINE SPECIMENOrdering Facility: [facility] Address: [address] [place] [address] Performed By: #### 2 4356-8 ####[facility] LABCLIA [id number] [place] [address] [place] Protein (U) [Mass/Vol] Negative Normal Negative [facility] Comment on above: Order Comment: Speci men Type: URINE SPECIMENOrdering Facility: [facility] Address: [address] [place] [address] Performed By: #### 2 4356-8 ####[facility] LABIA [id number] [place] [address] [place] RBC LM.HPF (Urine sed) [#/Area] 0-2 /HPF Normal 0-2 /HPF [facility] Comment on above: Order Comment: Speci men Type: URINE SPECIMENOrdering Facility: [facility] Address: [address] [place] [address] Performed By: #### 2 4356-8 ####[facility] LABIA [id number] [place] [address] [place] Specific gravity (U) [Rel density] 1.020 Normal 1.005-1.030 [facility] Comment on above: Order Comment: Speci men Type: URINE SPECIMENOrdering Facility: [facility] Address: [address] [place] [address] Performed By: #### 2 4356-8 ####[facility] LABIA [id number] [place] [address] [place] Urobilinogen Ql (U) 1.0 EU/dL Normal 0.2-1.0 EU/dL [facility] Comment on above: Order Comment: Speci men Type: URINE SPECIMENOrdering Facility: [facility] Address: [address] [place] [address] Performed By: #### 2 4356-8 ####[facility] LABIA [id number] [place] [address] [place] WBC LM.HPF (Urine sed) [#/Area] 0-5 /HPF Normal 0-5 /HPF [facility] Comment on above: Order Comment: Speci men Type: URINE SPECIMENOrdering Facility: [facility] Address: [address] [place] [address] Performed By: #### 2 4356-8 ####[facility] LABCLIA [id number] [facility] [id number] [address] [place] XR CHEST 2V FRONTAL/LATon XR CHEST 2V FRONTAL/LAT Normal [facility] Glucose Test strip manual (B ld) [Mass/Vol]on 07-03-2023 Glucose [Mass/Vol] 121 mg/dL High 74 - 99 mg/dL [facility] Interpretation and review of laboratory results Abnormal [facility] Glucose [Mass/Vol] 121 mg/dL High 74-99 [facility] Comment on above: Performed By: #### 2 4356-8 #### MELISA Galvan ([id number]) [facility] ([facility]) [address] [place] [address] CBC panel Auto (Bld)on 07-01 Erythrocyte distribution width (RBC) [Ratio] 13.4 % 11.5 - 14.5 % [facility] Hematocrit (Bld) [Volume fraction] 35.5 % Low 36.0 - 46.0 % [facility] Hemoglobin (Bld) [Mass/Vol] 11.8 g/dL Low 12.0 - 16.0 g/dL [facility] Interpretation and review of laboratory results Abnormal [facility] MCH (RBC) [Entitic mass] 30.3 pg 26.0 - 34.[address] [facility] MCHC (RBC) [Mass/Vol] 33.2 g/dL 32.0 - 36.0 g/dL [facility] MCV (RBC) [Entitic vol] 91 fL 80 - [address] [facility] Nucleated RBC/100 WBC (Bld) [Ratio] 0.0 % [facility] Platelets (Bld) [#/Vol] 223 10*3/uL [facility] RBC (Bld) [#/Vol] 3.89 10*6/uL Low [facility] WBC (Bld) [#/Vol] 4.5 10*3/uL [facility] Erythrocyte distribution width (RBC) [Ratio] 13.4 % Normal 11.5-14.5 [facility] Comment on above: Performed By: #### 2 4356-8 #### MELISA Galvan (23581) [facility] () [address] [place] [address] Hematocrit (Bld) [Volume fraction] 35.5 % Low 36.0-46.0 [facility] Comment on above: Performed By: #### 2 4356-8 #### MELISA Galvan (85535) [facility] () [address] [place] [address] Hemoglobin (Bld) [Mass/Vol] 11.8 g/dL Low 12.0-16.0 [facility] Comment on above: Performed By: #### 2 4356-8 #### MELISA Galvan (97753) [facility] () [address] [place] [address] MCH (RBC) [Entitic mass] 30.3 pg Normal 26.0-34.0 [facility] Comment on above: Performed By: #### 2 4356-8 #### MELISA Galvan (99523) [facility] () [address] [place] [address] MCHC (RBC) [Mass/Vol] 33.2 g/dL Normal 32.0-36.0 [facility] Comment on above: Performed By: #### 2 4356-8 #### MELISA Galvan (65933) [facility] () [address] [place] [address] MCV (RBC) [Entitic vol] 91 fL Normal 80-100 [facility] Comment on above: Performed By: #### 2 4356-8 #### MELISA Galvan ([id number]) [facility] () [address] [place] [address] Nucleated RBC/100 WBC (Bld) [Ratio] 0.0 /100 WBCs Normal 0.0-0.0 [facility] Comment on above: Performed By: #### 2 4356-8 #### MELISA Galvan (22439) [facility] () [address] [place] [address] Platelets (Bld) [#/Vol] 223 x10*3/uL Normal 150-450 [facility] Comment on above: Performed By: #### 2 4356-8 #### MELISA Galvan (30396) [facility] () [address] [place] [address] RBC (Bld) [#/Vol] 3.89 x10*6/uL Low 4.00-5.20 [facility] Comment on above: Performed By: #### 2 4356-8 #### MELISA Galvan (64854) [facility] () [address] [place] [address] WBC (Bld) [#/Vol] 4.5 x10*3/uL Normal 4.4-11.3 [facility] Comment on above: Performed By: #### 2 4356-8 #### MELISA Galvan (23023) [facility] () [address] [place] [address] Glucose Test strip manual (B ld) [Mass/Vol]on 07-02-2023 Glucose [Mass/Vol] 103 mg/dL High 74 - 99 mg/dL [facility] Interpretation and review of laboratory results Abnormal [facility] Glucose [Mass/Vol] 103 mg/dL High 74-99 [facility] Comment on above: Performed By: #### 2 4356-8 #### MELISA Galvan (44254) [facility] () [address] [place] [address] Glucose [Mass/Vol] 112 mg/dL High 74 - 99 mg/dL [facility] Interpretation and review of laboratory results Abnormal [facility] Glucose [Mass/Vol] 112 mg/dL High 74-99 [facility] Comment on above: Performed By: #### 2 4356-8 #### MELISA Galvan (44849) [facility] () [address] [place] [address] Glucose [Mass/Vol] 99 mg/dL 74 - 99 mg/dL [facility] Interpretation and review of laboratory results Normal [facility] Glucose [Mass/Vol] 99 mg/dL Normal 74-99 [facility] Comment on above: Performed By: #### 2 4356-8 #### MELISA Galvan (09161) [facility] () [address] [place] [address] Glucose [Mass/Vol] 135 mg/dL High 74 - 99 mg/dL [facility] Interpretation and review of laboratory results Abnormal [facility] Glucose [Mass/Vol] 135 mg/dL High 74-99 [facility] Comment on above: Performed By: #### 2 4356-8 #### MELISA Galvan (52069) [facility] () [address] [place] [address] Renal function 2000 panelon 07-02-2023 Albumin [Mass/Vol] 4.0 g/dL 3.5 - 5.0 g/dL [facility] Anion gap [Moles/Vol] 11 mmol/L NINF - 19 mmol/L [facility] Calcium [Mass/Vol] 8.6 mg/dL 8.5 - 10.4 mg/dL [facility] Chloride [Moles/Vol] 103 mmol/L 97 - 107 mmol/L [facility] CO2 [Moles/Vol] 23 mmol/L Low 24 - 31 mmol/L [facility] Creatinine [Mass/Vol] 0.70 mg/dL 0.40 - 1.60 mg/dL [facility] eGFR - PINF [facility] Comment on above: Calculations of jessica mated GFR are performed using the 2020 CKD-EPI Study Refit equation without the race variable for the IDMS-Traceable creatinine methods. https://jasn.asnjournals.org/content//ASN.70955810 88 Glucose [Mass/Vol] 101 mg/dL High 65 - 99 mg/dL [facility] Interpretation and review of laboratory results Abnormal [facility] Phosphate [Mass/Vol] 4.0 mg/dL 2.5 - 4.5 mg/dL [facility] Potassium [Moles/Vol] 3.9 mmol/L 3.4 - 5.1 mmol/L [facility] Sodium [Moles/Vol] 137 mmol/L 133 - 145 mmol/L [facility] Urea nitrogen [Mass/Vol] 13 mg/dL 8 - 25 mg/dL [facility] Albumin [Mass/Vol] 4.0 g/dL Normal 3.5-5.0 [facility] Comment on above: Performed By: #### 2 4356-8 #### MELISA Galvan (18511) [facility] () [address] [place] [address] Anion gap [Moles/Vol] 11 mmol/L Normal <=19 [facility] Comment on above: Performed By: #### 2 4356-8 #### MELISA Galvan (15466) [facility] () [address] [place] [address] Calcium [Mass/Vol] 8.6 mg/dL Normal 8.5-10.4 [facility] Comment on above: Performed By: #### 2 4356-8 #### MELISA Galvan (20249) [facility] () [address] [place] [address] Chloride [Moles/Vol] 103 mmol/L Normal 97-107 [facility] Comment on above: Performed By: #### 2 4356-8 #### MELISA Galvan ([id number]) [facility] () [address] [place] [address] CO2 [Moles/Vol] 23 mmol/L Low 24-31 [facility] Comment on above: Performed By: #### 2 4356-8 #### MELISA Galvan (48251) [facility] () [address] [place] [address] Creatinine [Mass/Vol] 0.70 mg/dL Normal 0.40-1.60 [facility] Comment on above: Performed By: #### 2 4356-8 #### MELISA Galvan (41441) [facility] () [address] [place] [address] GFR/1.73 sq M.predicted MDRD (S/P/Bld) [Vol rate/Area] mL/min/{1.73_m2} Normal >60 [facility] Comment on above: Result Comment: Calc ulations of estimated GFR are performed using the 2020 CKD-EPI Study Refit equation without the race variable for the IDMS-Traceable creatinine methods. https://jasn.asnjournals.org/content/early//ASN.68016250 88 Performed By: #### 2 4356-8 #### MELISA Gavlan (13668) [facility] () [address] [place] [address] Glucose [Mass/Vol] 101 mg/dL High 65-99 [facility] Comment on above: Performed By: #### 2 4356-8 #### MELISA Galvan (68794) [facility] () [address] [place] [address] Phosphate [Mass/Vol] 4.0 mg/dL Normal 2.5-4.5 [facility] Comment on above: Performed By: #### 2 4356-8 #### MELISA Galvan ([id number]) [facility] () [address] [place] [address] Potassium [Moles/Vol] 3.9 mmol/L Normal 3.4-5.1 [facility] Comment on above: Performed By: #### 2 4356-8 #### MELISA Galvan ([id number]) [facility] () [address] [place] [address] Sodium [Moles/Vol] 137 mmol/L Normal 133-145 [facility] Comment on above: Performed By: #### 2 4356-8 #### MELISA Galvan ([id number]) [facility] () [address] [place] [address] Urea nitrogen [Mass/Vol] 13 mg/dL Normal 8-25 [facility] Comment on above: Performed By: #### 2 4356-8 #### MELISA Galvan ([id number]) [facility] () [address] [place] [address] CBC panel Auto (Bld)on 06-30 Erythrocyte distribution width (RBC) [Ratio] 13.7 % 11.5 - 14.5 % [facility] Hematocrit (Bld) [Volume fraction] 36.7 % 36.0 - 46.0 % [facility] Hemoglobin (Bld) [Mass/Vol] 12.0 g/dL 12.0 - 16.0 g/dL [facility] Interpretation and review of laboratory results Abnormal [facility] MCH (RBC) [Entitic mass] 31.1 pg 26.0 - 34.[address] [facility] MCHC (RBC) [Mass/Vol] 32.7 g/dL 32.0 - 36.0 g/dL [facility] MCV (RBC) [Entitic vol] 95 fL 80 - [address] [facility] Nucleated RBC/100 WBC (Bld) [Ratio] 0.0 % [facility] Platelets (Bld) [#/Vol] 228 10*3/uL [facility] RBC (Bld) [#/Vol] 3.86 10*6/uL [facility] WBC (Bld) [#/Vol] 3.3 10*3/uL [facility] Erythrocyte distribution width (RBC) [Ratio] 13.7 % Normal 11.5-14.5 [facility] Comment on above: Performed By: #### 5 8410-2 #### MELISA Galvan ([id number]) [facility] () [address] [place] [address] Hematocrit (Bld) [Volume fraction] 36.7 % Normal 36.0-46.0 [facility] Comment on above: Performed By: #### 5 8410-2 #### MELISA Galvan ([id number]) [facility] () [address] [place] [address] Hemoglobin (Bld) [Mass/Vol] 12.0 g/dL Normal 12.0-16.0 [facility] Comment on above: Performed By: #### 5 8410-2 #### MELISA Galvan ([id number]) COUNT INCLUDES THE [facility] () [address] [place] [address] MCH (RBC) [Entitic mass] 31.1 pg Normal 26.0-34.0 [facility] Comment on above: Performed By: #### 5 8410-2 #### MELISA Galvan ([id number]) [facility] () [address] [place] [address] MCHC (RBC) [Mass/Vol] 32.7 g/dL Normal 32.0-36.0 [facility] Comment on above: Performed By: #### 5 8410-2 #### MELISA Galvan (55909) [facility] () [address] [place] [address] MCV (RBC) [Entitic vol] 95 fL Normal 80-100 [facility] Comment on above: Performed By: #### 5 8410-2 #### MELISA Galvan ([id number]) [facility] () [address] [place] [address] Nucleated RBC/100 WBC (Bld) [Ratio] 0.0 /100 WBCs Normal 0.0-0.0 [facility] Comment on above: Performed By: #### 5 8410-2 #### MELISA Galvan ([id number]) [facility] () [address] [place] [address] Platelets (Bld) [#/Vol] 228 x10*3/uL Normal 150-450 [facility] Comment on above: Performed By: #### 5 8410-2 #### MELISA Galvan ([id number]) [facility] () [address] [place] [address] RBC (Bld) [#/Vol] 3.86 x10*6/uL Low 4.00-5.20 [facility] Comment on above: Performed By: #### 5 8410-2 #### MELISA Galvan (09244) [facility] () [address] [place] [address] WBC (Bld) [#/Vol] 3.3 x10*3/uL Low 4.4-11.3 [facility] Comment on above: Performed By: #### 5 8410-2 #### MELISA Galvan ([id number]) [facility] () [address] [place] [address] Glucose Test strip manual (B ld) [Mass/Vol]on 07-01-2023 Glucose [Mass/Vol] 104 mg/dL High 74 - 99 mg/dL [facility] Interpretation and review of laboratory results Abnormal [facility] Glucose [Mass/Vol] 104 mg/dL High 74-99 [facility] Comment on above: Performed By: #### 5 8410-2 #### MELISA Galvan ([id number]) [facility] () [address] [place] [address] Glucose [Mass/Vol] 92 mg/dL 74 - 99 mg/dL [facility] Interpretation and review of laboratory results Normal [facility] Glucose [Mass/Vol] 92 mg/dL Normal 74-99 [facility] Comment on above: Performed By: #### 5 8410-2 #### MELISA Galvan (56132) [facility] () [address] [place] [address] Glucose [Mass/Vol] 88 mg/dL 74 - 99 mg/dL [facility] Interpretation and review of laboratory results Normal [facility] Glucose [Mass/Vol] 88 mg/dL Normal 74-99 [facility] Comment on above: Performed By: #### 5 8410-2 #### MELISA Galvan ([id number]) [facility] () [address] [place] [address] Glucose [Mass/Vol] 105 mg/dL High 74 - 99 mg/dL [facility] Interpretation and review of laboratory results Abnormal [facility] Glucose [Mass/Vol] 105 mg/dL High 74-99 [facility] Comment on above: Performed By: #### 5 8410-2 #### MELISA Galvan ([id number]) [facility] () [address] [place] [address] Glucose [Mass/Vol] 86 mg/dL 74 - 99 mg/dL [facility] Interpretation and review of laboratory results Normal [facility] Glucose [Mass/Vol] 86 mg/dL Normal 74-99 [facility] Comment on above: Performed By: #### 5 8410-2 #### MELISA Galvan ([id number]) [facility] () [address] [place] [address] Glucose [Mass/Vol] 98 mg/dL 74 - 99 mg/dL [facility] Interpretation and review of laboratory results Normal [facility] Glucose [Mass/Vol] 98 mg/dL Normal 74-99 [facility] Comment on above: Performed By: #### 5 8410-2 #### MELISA Galvan ([id number]) [facility] () [address] [place] [address] [facility] 2023 Home Health Records [id number] Normal [facility] Magnesiumon 07-01-2023 Magnesium [Mass/Vol] 2.00 mg/dL 1.60 - 3.10 mg/dL [facility] Magnesium [Mass/Vol] 2.00 mg/dL Normal 1.60-3.10 [facility] Comment on above: Performed By: #### 5 8410-2 #### MELISA Galvan ([id number]) [facility] (MW) [address] [place] [address] Magnesium [Mass/Vol]on 06-30 Interpretation and review of laboratory results Normal [facility] Renal function 2000 panelon 07-01-2023 Albumin [Mass/Vol] 3.8 g/dL 3.5 - 5.0 g/dL Un [facility] Anion gap [Moles/Vol] 12 mmol/L NINF - 19 mmol/L [facility] Calcium [Mass/Vol] 8.5 mg/dL 8.5 - 10.4 mg/dL [facility] Chloride [Moles/Vol] 106 mmol/L 97 - 107 mmol/L [facility] CO2 [Moles/Vol] 21 mmol/L Low 24 - 31 mmol/L [facility] Creatinine [Mass/Vol] 0.70 mg/dL 0.40 - 1.60 mg/dL [facility] eGFR - PINF [facility] Comment on above: Calculations of jessica mated GFR are performed using the 2020 CKD-EPI Study Refit equation without the race variable for the IDMS-Traceable creatinine methods. https://jasn.asnjournals.org/content//ASN.39523194 88 Glucose [Mass/Vol] 113 mg/dL High 65 - 99 mg/dL [facility] Interpretation and review of laboratory results Abnormal [facility] Phosphate [Mass/Vol] 5.4 mg/dL High 2.5 - 4.5 mg/dL [facility] Potassium [Moles/Vol] 3.9 mmol/L 3.4 - 5.1 mmol/L [facility] Sodium [Moles/Vol] 139 mmol/L 133 - 145 mmol/L [facility] Urea nitrogen [Mass/Vol] 12 mg/dL 8 - 25 mg/dL [facility] Albumin [Mass/Vol] 3.8 g/dL Normal 3.5-5.0 [facility] Comment on above: Performed By: #### 5 8410-2 #### MELISA Galvan ([id number]) [facility] () [address] [place] [address] Anion gap [Moles/Vol] 12 mmol/L Normal <=19 [facility] Comment on above: Performed By: #### 5 8410-2 #### MELISA Galvan (48961) [facility] () [address] [place] [address] Calcium [Mass/Vol] 8.5 mg/dL Normal 8.5-10.4 [facility] Comment on above: Performed By: #### 5 8410-2 #### MELISA Galvan ([id number]) [facility] () [address] [place] [address] Chloride [Moles/Vol] 106 mmol/L Normal 97-107 [facility] Comment on above: Performed By: #### 5 8410-2 #### MELISA Galvan (38732) [facility] () [address] [place] [address] CO2 [Moles/Vol] 21 mmol/L Low 24-31 [facility] Comment on above: Performed By: #### 5 8410-2 #### MELISA Galvan (47549) [facility] () [address] [place] [address] Creatinine [Mass/Vol] 0.70 mg/dL Normal 0.40-1.60 [facility] Comment on above: Performed By: #### 5 8410-2 #### MELISA Galvan (65288) [facility] () [address] [place] [address] GFR/1.73 sq M.predicted MDRD (S/P/Bld) [Vol rate/Area] mL/min/{1.73_m2} Normal >60 [facility] Comment on above: Result Comment: Calc ulations of estimated GFR are performed using the 2020 CKD-EPI Study Refit equation without the race variable for the IDMS-Traceable creatinine methods. https://jasn.asnjournals.org/content/early//ASN.62339664 88 Performed By: #### 5 8410-2 #### MELISA Galvan ([id number]) [facility] () [address] [place] [address] Glucose [Mass/Vol] 113 mg/dL High 65-99 [facility] Comment on above: Performed By: #### 5 8410-2 #### MELISA Galvan ([id number]) [facility] () [address] [place] [address] Phosphate [Mass/Vol] 5.4 mg/dL High 2.5-4.5 [facility] Comment on above: Performed By: #### 5 8410-2 #### MELISA Galvan (80443) [facility] () [address] [place] [address] Potassium [Moles/Vol] 3.9 mmol/L Normal 3.4-5.1 [facility] Comment on above: Performed By: #### 5 8410-2 #### MELISA Galvan ([id number]) [facility] () [address] [place] [address] Sodium [Moles/Vol] 139 mmol/L Normal 133-145 [facility] Comment on above: Performed By: #### 5 8410-2 #### MELISA Galvan (35092) [facility] () [address] [place] [address] Urea nitrogen [Mass/Vol] 12 mg/dL Normal 8-25 [facility] Comment on above: Performed By: #### 5 8410-2 #### MELISA ALEXANDRO Galvan (51176) [facility] () [address] [place] [address] Vascular US mesenteric arter y duplex completeon 07-01-2023 [facility] [address] [place] [address] Vascular Lab Report VASC US MESENTERIC ARTERY DUPLEX COMPLETE Patient Name: ABBEY GARCIA Reading Physician: [id number] Sherry Magaña MD Study Date: 06/30/2023 Ordering Provider: [id number] JAMIL GAVIN MRN/PID: [id number] Fellow: Technologist: Leia Degroot RVT Date of /Age: 2 1990 / 33 years Technologist 2: Gender: F Admission Status: Inpatient Location Performed: [facility] 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 Report Amended Report Amended By: Brandy aMgaña MD Date and Time: 06/30/2023 at 12:15:01 [...] PSV 89 cm/s KEELY PSV 105 cm/s 87776 Sherry Magaña [place] [id number] Magaña MD Electronically Amended 06/30/2023, 12:15 PM Final (Amended) [facility] Work Phone: [facility] Work Phone: XR CHEST 1 VIEWon 07-01-2023 XR CHEST 1 VIEW Interpreted By: Dotty Salcido, STUDY: XR CHEST 1 VIEW 07/01/2023 1:30 pm INDICATION: Signs/Symptoms:PICC line position verification COMPARISON: 03/17/2023 ACCESSION NUMBER(S): [id number] ORDERING CLINICIAN: DOLORES COX TECHNIQUE: Single AP view chest FINDINGS: Cardiomediastinal silhouette is within normal limits. Right-sided PICC line identified with tip in the region of the mid SVC. No infiltrate or effusion is identified. Visualized osseous structures unremarkable. IMPRESSION: 1. Right PICC line placement with tip in the mid SVC. Signed by: Dotty Salcido 07/01/2023 1:46 PM Dictation workstation: [id number] [facility] XR Chest Single viewon 06-30 1. Right PICC line placement with tip in the mid SVC. Signed by: Dotty Salcido 07/01/2023 1:46 PM Dictation workstation: [id number] MMODAL Interpreted By: Dotty Salcido, STUDY: XR CHEST 1 VIEW 07/01/2023 1:30 pm INDICATION: Signs/Symptoms:PICC line position verification COMPARISON: 03/17/2023 ACCESSION NUMBER(S): [id number] ORDERING CLINICIAN: DOLORES COX TECHNIQUE: Single AP [...] line position verification COMPARISON: 03/17/2023 ACCESSION NUMBER(S): [id number] ORDERING CLINICIAN: DOLORES COX TECHNIQUE: Single AP view chest FINDINGS: Cardiomediastinal silhouette is within normal limits. Right-sided PICC line identified with tip in the region of the mid SVC. No infiltrate or effusion is identified. Visualized osseous structures unremarkable. IMPRESSION: 1. Right PICC line placement with tip in the mid SVC. Signed by: Dotty Salcido 07/01/2023 1:46 PM Dictation workstation: [id number] [facility] Work Phone: Radiology Study observation (narrative) [facility] Work Phone: XR Chest Single viewOrdered By: Dotty Salcido on 07-01-[address] [facility] Work Phone: CBC panel Auto (Bld)on 06-29 Erythrocyte distribution width (RBC) [Ratio] 13.8 % 11.5 - 14.5 % [facility] Hematocrit (Bld) [Volume fraction] 32.2 % Low 36.0 - 46.0 % [facility] Hemoglobin (Bld) [Mass/Vol] 10.8 g/dL Low 12.0 - 16.0 g/dL [facility] Interpretation and review of laboratory results Abnormal [facility] MCH (RBC) [Entitic mass] 31.0 pg 26.0 - 34.[address] [facility] MCHC (RBC) [Mass/Vol] 33.5 g/dL 32.0 - 36.0 g/dL [facility] MCV (RBC) [Entitic vol] 93 fL 80 - [address] [facility] Nucleated RBC/100 WBC (Bld) [Ratio] 0.0 % [facility] Platelets (Bld) [#/Vol] 217 10*3/uL [facility] RBC (Bld) [#/Vol] 3.48 10*6/uL Low [facility] WBC (Bld) [#/Vol] 5.0 10*3/uL [facility] Erythrocyte distribution width (RBC) [Ratio] 13.8 % Normal 11.5-14.5 [facility] Comment on above: Performed By: #### 5 8410-2 ####MELISA Galvan ([id number])[facility] ()[address] [place] [address] Hematocrit (Bld) [Volume fraction] 32.2 % Low 36.0-46.0 [facility] Comment on above: Performed By: #### 5 8410-2 ####MELISA Galvan ([id number])[facility] ()[address] [place] [address] Hemoglobin (Bld) [Mass/Vol] 10.8 g/dL Low 12.0-16.0 [facility] Comment on above: Performed By: #### 5 8410-2 ####MELISA Galvan (13223)[facility] ()[address] [place] [address] MCH (RBC) [Entitic mass] 31.0 pg Normal 26.0-34.0 [facility] Comment on above: Performed By: #### 5 8410-2 ####MELISA Galvan ([id number])[facility] ()[address] [place] [address] MCHC (RBC) [Mass/Vol] 33.5 g/dL Normal 32.0-36.0 [facility] Comment on above: Performed By: #### 5 8410-2 ####MELISA Galvan ([id number])[facility] ()[address] [place] [address] MCV (RBC) [Entitic vol] 93 fL Normal 80-100 [facility] Comment on above: Performed By: #### 5 8410-2 ####MELISA Galvan ([id number])[facility] ()[address] [place] [address] Nucleated RBC/100 WBC (Bld) [Ratio] 0.0 /100 WBCs Normal 0.0-0.0 [facility] Comment on above: Performed By: #### 5 8410-2 ####MELISA Galvan (79076)[facility] ()[address] [place] [address] Platelets (Bld) [#/Vol] 217 x10*3/uL Normal 150-450 [facility] Comment on above: Performed By: #### 5 8410-2 ####MELISA Galvan ([id number])[facility] ()[address] [place] [address] RBC (Bld) [#/Vol] 3.48 x10*6/uL Low 4.00-5.20 [facility] Comment on above: Performed By: #### 5 8410-2 ####MELISA Galvan (59019)[facility] ()[address] [place] [address] WBC (Bld) [#/Vol] 5.0 x10*3/uL Normal 4.4-11.3 [facility] Comment on above: Performed By: #### 5 8410-2 ####MELISA Galvan ([id number])[facility] ()[address] [place] [address] CT ANGIO ABDOMEN PELVIS W AN D/OR WO IV IV CONTRASTon 06-30-2023 CT ANGIO ABDOMEN PELVIS W AND/OR WO IV IV CONTRAST Interpreted By: Audie Gutierrez, STUDY: CT ANGIO ABDOMEN PELVIS W AND/OR WO IV IV CONTRAST; 06/30/2023 10:56 am INDICATION: Signs/Symptoms:Carmela ac disease; COMPARISON: 06/29/2023 ACCESSION NUMBER(S): [id number] ORDERING CLINICIAN: TIFFANIE MENDEZ TECHNIQUE: Contiguous axial [...] Audie Gutierrez 06/30/2023 12:06 PM Dictation workstation: [id number] [facility] Comment on above: Order Comment: CTA, [...] Audie Gutierrez 06/30/2023 12:06 PM Dictation workstation: [id number] MMODAL Interpreted By: Audie Gutierrez, STUDY: CT ANGIO ABDOMEN PELVIS W AND/OR WO IV IV CONTRAST; 06/30/2023 10:56 am INDICATION: Signs/Symptoms:Carmela ac disease; COMPARISON: 06/29/2023 ACCESSION NUMBER(S): [id number] ORDERING CLINICIAN: TIFFANIE MENDEZ TECHNIQUE: Contiguous axial [...] Signs/Symptoms:Carmela ac disease; COMPARISON: 06/29/2023 ACCESSION NUMBER(S): [id number] ORDERING CLINICIAN: TIFFANIE MENDEZ TECHNIQUE: Contiguous axial [...] Audie Gutierrez 06/30/2023 12:06 PM Dictation workstation: [id number] [facility] Work Phone: Radiology Study observation (narrative) [facility] Work Phone: CTA Abdominal vessels and Pe lvis vessels WO and W contrast IVOrdered By: Audie Gutierrez on 06-30-[address] [facility] Work Phone: Comprehensive metabolic 2000 panelOrdered By: Cristina Blevins on 06-30-2023 Albumin [Mass/Vol] 3.8 g/dL 3.5 - 5.0 g/dL [facility] ALP (Bld) [Catalytic activity/Vol] 51 U/L 35 - 125 U/L [facility] ALT [Catalytic activity/Vol] 35 U/L 5 - 40 U/L [facility] Anion gap [Moles/Vol] 13 mmol/L NINF - 19 mmol/L [facility] AST [Catalytic activity/Vol] 52 U/L High 5 - 40 U/L [facility] Bilirubin [Mass/Vol] mg/dL 0.1 - 1.2 mg/dL [facility] Calcium [Mass/Vol] 9.1 mg/dL 8.5 - 10.4 mg/dL [facility] Chloride [Moles/Vol] 90 mmol/L Low 97 - 107 mmol/L [facility] CO2 [Moles/Vol] 19 mmol/L Low 24 - 31 mmol/L [facility] Creatinine [Mass/Vol] 0.70 mg/dL 0.40 - 1.60 mg/dL [facility] eGFR - PINF [facility] Comment on above: Calculations of jessica mated GFR are performed using the 2020 CKD-EPI Study Refit equation without the race variable for the IDMS-Traceable creatinine methods. https://jasn.asnjournals.org/content/early/ASN.89689895 88 Glucose [Mass/Vol] 920 mg/dL Critically high 65 - 99 mg/d L [facility] Comment on above: Result rechecked Possible IV contamination. Results do not correlate with previous and post results. Patient was redraw . Interpretation and review of laboratory results Abnormal [facility] Potassium [Moles/Vol] 6.8 mmol/L Critically high 3.4 - 5.1 mmol/L [facility] Comment on above: Result rechecked Possible IV contamination. Results do not correlate with previus and post results. Patient was redrawn. Protein [Mass/Vol] 6.3 g/dL 5.9 - 7.9 g/dL Un [facility] Sodium [Moles/Vol] 122 mmol/L Low 133 - 145 mmol/L [facility] Comment on above: Result rechecked Urea nitrogen [Mass/Vol] 15 mg/dL 8 - 25 mg/dL [facility] Comprehensive metabolic 2000 panelon 06-30-2023 Albumin [Mass/Vol] 3.8 g/dL 3.5 - 5.0 g/dL Un [facility] ALP (Bld) [Catalytic activity/Vol] 52 U/L 35 - 125 U/L [facility] ALT [Catalytic activity/Vol] 34 U/L 5 - 40 U/L [facility] Anion gap [Moles/Vol] 10 mmol/L NINF - 19 mmol/L [facility] AST [Catalytic activity/Vol] 43 U/L High 5 - 40 U/L [facility] Bilirubin [Mass/Vol] 0.3 mg/dL 0.1 - 1.2 mg/dL [facility] Calcium [Mass/Vol] 8.8 mg/dL 8.5 - 10.4 mg/dL [facility] Chloride [Moles/Vol] 104 mmol/L 97 - 107 mmol/L [facility] CO2 [Moles/Vol] 23 mmol/L Low 24 - 31 mmol/L [facility] Creatinine [Mass/Vol] 0.60 mg/dL 0.40 - 1.60 mg/dL [facility] eGFR - PINF [facility] Comment on above: Calculations of jessica mated GFR are performed using the 2020 CKD-EPI Study Refit equation without the race variable for the IDMS-Traceable creatinine methods. https://jasn.asnjournals.org/content//ASN.80256184 88 Glucose [Mass/Vol] 136 mg/dL High 65 - 99 mg/dL Uni [facility] Interpretation and review of laboratory results Abnormal [facility] Potassium [Moles/Vol] 3.9 mmol/L 3.4 - 5.1 mmol/L [facility] Protein [Mass/Vol] 6.3 g/dL 5.9 - 7.9 g/dL Un [facility] Sodium [Moles/Vol] 137 mmol/L 133 - 145 mmol/L [facility] Urea nitrogen [Mass/Vol] 14 mg/dL 8 - 25 mg/dL [facility] Albumin [Mass/Vol] 3.8 g/dL Normal 3.5-5.0 [facility] Comment on above: Performed By: #### 2 4323-8 ####MELISA Galvan ([id number])[facility] ()[address] [place] [address] ALP (Bld) [Catalytic activity/Vol] 52 U/L Normal 35-125 [facility] Comment on above: Performed By: #### 2 4323-8 ####MELISA Galvan ([id number])[facility] ()[address] [place] [address] ALT [Catalytic activity/Vol] 34 U/L Normal 5-40 [facility] Comment on above: Performed By: #### 2 432-8 ####MELISA Galvan ([id number])[facility] ()[address] [place] [address] Anion gap [Moles/Vol] 10 mmol/L Normal <=19 [facility] Comment on above: Performed By: #### 2 432-8 ####MELISA Galvan ([id number])[facility] ()[address] [place] [address] AST [Catalytic activity/Vol] 43 U/L High 5-40 [facility] Comment on above: Performed By: #### 2 432-8 ####MELISA Galvan ([id number])[facility] ()[address] [place] [address] Bilirubin [Mass/Vol] 0.3 mg/dL Normal 0.1-1.2 [facility] Comment on above: Performed By: #### 2 432-8 ####MELISA Galvan ([id number])[facility] ()[address] [place] [address] Calcium [Mass/Vol] 8.8 mg/dL Normal 8.5-10.4 [facility] Comment on above: Performed By: #### 2 4323-8 ####MELISA Galvan ([id number])[facility] ()[address] [place] [address] Chloride [Moles/Vol] 104 mmol/L Normal 97-107 [facility] Comment on above: Performed By: #### 2 432-8 ####MELISA Galvan ([id number])[facility] ()[address] [place] [address] CO2 [Moles/Vol] 23 mmol/L Low 24-31 [facility] Comment on above: Performed By: #### 2 4323-8 ####MELISA Galvan ([id number])[facility] ()[address] [place] [address] Creatinine [Mass/Vol] 0.60 mg/dL Normal 0.40-1.60 [facility] Comment on above: Performed By: #### 2 432-8 ####MELISA Galvan ([id number])[facility] ()[address] [place] [address] GFR/1.73 sq M.predicted MDRD (S/P/Bld) [Vol rate/Area] mL/min/{1.73_m2} Normal >60 [facility] Comment on above: Result Comment: Calc ulations of estimated GFR are performed using the 2020 CKD-EPI Study Refit equation without the race variable for the IDMS-Traceable creatinine methods. https://jasn.asnjournals.org/content/early/ASN.49294127 88 Performed By: #### 2 4323-8 ####MELISA Galvan ([id number])[facility] ()[address] [place] [address] Glucose [Mass/Vol] 136 mg/dL High 65-99 [facility] Comment on above: Performed By: #### 2 4323-8 ####MELISA Galvan ([id number])[facility] ()[address] [place] [address] Potassium [Moles/Vol] 3.9 mmol/L Normal 3.4-5.1 [facility] Comment on above: Performed By: #### 2 4323-8 ####MELISA aGlvan ([id number])[facility] ()[address] [place] [address] Protein [Mass/Vol] 6.3 g/dL Normal 5.9-7.9 [facility] Comment on above: Performed By: #### 2 4323-8 ####MELISA Galvan ([id number])[facility] ()[address] [place] [address] Sodium [Moles/Vol] 137 mmol/L Normal 133-145 [facility] Comment on above: Performed By: #### 2 4323-8 ####MELISA Galvan ([id number])[facility] ()[address] [place] [address] Urea nitrogen [Mass/Vol] 14 mg/dL Normal 8-25 [facility] Comment on above: Performed By: #### 2 4323-8 ####MELISA Galvan ([id number])[facility] ()[address] [place] [address] Extra Urine [place] Tubeon 06-15 Extra Tube Hold for add-ons. [facility] Comment on above: Auto resulted. [facility] Glucose Test strip manual (B ld) [Mass/Vol]on 06-30-2023 Glucose [Mass/Vol] 117 mg/dL High 74 - 99 mg/dL [facility] Interpretation and review of laboratory results Abnormal [facility] Glucose [Mass/Vol] 117 mg/dL High 74-99 [facility] Comment on above: Performed By: #### 2 341-6 ####MELISA Galvan ([id number])[facility] ()[address] [place] [address] Glucose [Mass/Vol] 77 mg/dL 74 - 99 mg/dL [facility] Interpretation and review of laboratory results Normal [facility] Glucose [Mass/Vol] 77 mg/dL Normal 74-99 [facility] Comment on above: Performed By: #### 2 341-6 ####MELISA Galvan ([id number])[facility] ()[address] [place] [address] HCG ( test) IA.rapi d Ql (U)Ordered By: Agustin Cedillo on 06-30-2023 HCG ( test) Ql (U) Negative NEGATIVE [facility] Interpretation and review of laboratory results Normal [facility] HCG ( test) IA.rapi d Ql (U)on 06-30-2023 HCG ( test) Ql (U) Negative Normal NEGATIVE [facility] Comment on above: Performed By: #### 8 0384-1 ####MELISA Galvan ([id number])[facility] ()[address] [employer] [place] [address] Magnesiumon 06-30-2023 Magnesium [Mass/Vol] 1.90 mg/dL 1.60 - 3.10 mg/dL [facility] Magnesium [Mass/Vol] 1.90 mg/dL Normal 1.60-3.10 [facility] Comment on above: Performed By: #### 1 9123-9 ####MELISA Galvan ([id number])[facility] ()[address] [place] [address] No Panel Informationon 06-29 Interpretation and review of laboratory results Normal [facility] Phosphateon 06-30-2023 Phosphate [Mass/Vol] 4.4 mg/dL Normal 2.5-4.5 [facility] Comment on above: Performed By: #### 2 777-1 ####MELISA Galvan ([id number])[facility] ()[address] [place] [address] Phosphoruson 06-30-2023 Phosphate [Mass/Vol] 4.4 mg/dL 2.5 - 4.5 mg/dL [facility] Urinalysis complete W Reflex Culture panel (U)on 06-30-2023 Appearance (U) Clear Clear [facility] Bilirubin (U) [Mass/Vol] Negative NEGATIVE [facility] Color (U) Light-Yellow Light-Yellow, Yellow, Dark-Yellow [facility] Glucose Auto test strip (U) [Mass/Vol] Normal Normal mg/dL [facility] Interpretation and review of laboratory results Normal [facility] Ketones (U) [Mass/Vol] Negative NEGATIVE mg/dL [facility] Leukocyte esterase Auto test strip Ql (U) Negative NEGATIVE [facility] Nitrite Auto test strip Ql (U) Negative NEGATIVE [facility] pH (U) 6.0 [pH] 5.0, 5.5, 6.0, 6.5, 7.0, 7.5, 8.[address] [facility] Protein (U) [Mass/Vol] Negative NEGATIVE, 10 (TRACE), 20 (TRACE) mg/dL [facility] RBC (U) [#/Vol] Negative NEGATIVE [facility] Specific gravity (U) [Rel density] 1.023 1.005 - 1.[address] [facility] Urobilinogen (U) [Mass/Vol] Normal Normal mg/dL [facility] Appearance (U) Clear Normal Clear [facility] Comment on above: Performed By: #### 5 8077-9 ####MELISA Galvan ([id number])[facility] ()[address] [place] [address] Bilirubin (U) [Mass/Vol] Negative Normal NEGATIVE [facility] Comment on above: Performed By: #### 5 8077-9 ####MELISA Galvan ([id number])[facility] ()[address] [place] [address] Color (U) Light-Yellow Normal Light-Yellow, Yellow, Dark-Yellow [facility] Comment on above: Performed By: #### 5 8077-9 ####MELISA Galvan ([id number])[facility] ()[address] [place] [address] Glucose Auto test strip (U) [Mass/Vol] Normal Normal Normal [facility] Comment on above: Performed By: #### 5 8077-9 ####MELISA Galvan ([id number])[facility] ()[address] [place] [address] Ketones (U) [Mass/Vol] Negative Normal NEGATIVE [facility] Comment on above: Performed By: #### 5 8077-9 ####MELISA Galvan ([id number])[facility] ()[address] [place] [address] Leukocyte esterase Auto test strip Ql (U) Negative Normal NEGATIVE [facility] Comment on above: Performed By: #### 5 8077-9 ####MELISA Galvan ()[facility] ()[address] [place] [address] Nitrite Auto test strip Ql (U) Negative Normal NEGATIVE [facility] Comment on above: Performed By: #### 5 8077-9 ####MELISA Galvan ()COUNT INCLUDES THE [facility] ()[address] [place] [address] pH (U) 6.0 [pH] Normal 5.0, 5.5, 6.0, 6.5, 7.0, 7.5, 8.0 [facility] Comment on above: Performed By: #### 5 8077-9 ####MELISA Galvan ([id number])[facility] ()[address] [place] [address] Protein (U) [Mass/Vol] Negative Normal NEGATIVE, 10 (TRACE), 20 (TRACE) [facility] Comment on above: Performed By: #### 5 8077-9 ####MELISA Galvan ([id number])[facility] ()[address] [place] [address] RBC (U) [#/Vol] Negative Normal NEGATIVE [facility] Comment on above: Performed By: #### 5 8077-9 ####MELISA Galvan ([id number])[facility] ()[address] [place] [address] Specific gravity (U) [Rel density] 1.023 Normal 1.005-1.035 [facility] Comment on above: Performed By: #### 5 8077-9 ####MELISA Galvan ()[facility] ()[address] [place] [address] Urobilinogen (U) [Mass/Vol] Normal Normal Normal [facility] Comment on above: Performed By: #### 5 8077-9 ####MELISA POOLESarwat Galvan ([id number])[facility] ()[address] [place] [address] VASC US MESENTERIC ARTERY DU PLEX COMPLETEon 06-30-2023 VASC US MESENTERIC ARTERY DUPLEX COMPLETE [facility] [address] [place] [address] Vascular Lab Report VASC US MESENTERIC ARTERY DUPLEX COMPLETE Patient Name: ABBEY GARCIA Reading Physician: [id number] Magaña MD Study Date: 06/30/2023 Ordering Provider: [id number] JAMIL GAVIN MRN/PID: [id number] Fellow: Technologist: Leia Degroot RVT Date of /Age: 2 1990 / 33 years Technologist 2: Gender: F Admission Status: Inpatient Location Performed: [facility] 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 Report Amended Report Amended By: [id number] Sherry Magaña MD Date and Time: 06/30/2023 at [...] PSV 89 cm/s KEELY PSV 105 cm/s [id number] Sherry Magaña [place] [id number] Magaña MD Electronically Amended 06/30/2023, 12:15 PM Final (Amended) Normal [facility] Vascular US mesenteric arter y duplex completeon 06-30-2023 Radiology Study observation (narrative) [facility] Work Phone: Basic metabolic 2000 panelon 06-29-2023 Anion gap [Moles/Vol] 12 mmol/L NINF - 19 mmol/L [facility] Calcium [Mass/Vol] 8.6 mg/dL 8.5 - 10.4 mg/dL [facility] Chloride [Moles/Vol] 105 mmol/L 97 - 107 mmol/L [facility] CO2 [Moles/Vol] 21 mmol/L Low 24 - 31 mmol/L [facility] Creatinine [Mass/Vol] 0.60 mg/dL 0.40 - 1.60 mg/dL [facility] eGFR - PINF [facility] Comment on above: Calculations of jessica mated GFR are performed using the 2020 CKD-EPI Study Refit equation without the race variable for the IDMS-Traceable creatinine methods. https://jasn.asnjournals.org/content/early/ASN.79320925 88 Glucose [Mass/Vol] 106 mg/dL High 65 - 99 mg/dL Uni [facility] Interpretation and review of laboratory results Abnormal [facility] Potassium [Moles/Vol] 3.9 mmol/L 3.4 - 5.1 mmol/L [facility] Sodium [Moles/Vol] 138 mmol/L 133 - 145 mmol/L [facility] Urea nitrogen [Mass/Vol] 16 mg/dL 8 - 25 mg/dL [facility] Anion gap [Moles/Vol] 12 mmol/L Normal <=19 [facility] Comment on above: Performed By: #### V ERAB #### MELISA Galvan ([id number]) [facility] ([facility]) [address] [place] [address] [place] Calcium [Mass/Vol] 8.6 mg/dL Normal 8.5-10.4 [facility] Comment on above: Performed By: #### V ERAB #### MELISA Galvan ([id number]) [facility] ([facility]) [address] [place] [address] [place] Chloride [Moles/Vol] 105 mmol/L Normal 97-107 [facility] Comment on above: Performed By: #### V ERAB #### MELISA Galvan ([id number]) [facility] ([facility]) [address] [place] [address] [place] CO2 [Moles/Vol] 21 mmol/L Low 24-31 [facility] Comment on above: Performed By: #### V ERAB #### MELISA Galvan ([id number]) [facility] ([facility]) [address] [place] [address] [place] Creatinine [Mass/Vol] 0.60 mg/dL Normal 0.40-1.60 [facility] Comment on above: Performed By: #### V ERAB #### MELISA Galvan ([id number]) [facility] ([facility]) [address] [place] [address] [place] GFR/1.73 sq M.predicted MDRD (S/P/Bld) [Vol rate/Area] mL/min/{1.73_m2} Normal >60 [facility] Comment on above: Result Comment: Calc ulations of estimated GFR are performed using the 2020 CKD-EPI Study Refit equation without the race variable for the IDMS-Traceable creatinine methods. https://jasn.asnjournals.org/content//ASN.47896150 88 Performed By: #### V ERAB #### MELISA Galvan ([id number]) [facility] ([facility]) [address] [place] [address] [place] Glucose [Mass/Vol] 106 mg/dL High 65-99 [facility] Comment on above: Performed By: #### V ERAB #### MELISA Galvan ([id number]) [facility] ([facility]) [address] [place] [address] [place] Potassium [Moles/Vol] 3.9 mmol/L Normal 3.4-5.1 [facility] Comment on above: Performed By: #### V ERAB #### MELISA Galvan (23309) [facility] ([facility]) [address] [place] [address] [place] Sodium [Moles/Vol] 138 mmol/L Normal 133-145 [facility] Comment on above: Performed By: #### V ERAB #### MELISA Galvan ([id number]) [facility] ([facility]) [address] [place] [address] [place] Urea nitrogen [Mass/Vol] 16 mg/dL Normal 8-25 [facility] Comment on above: Performed By: #### V ERAB #### MELISA Galvan ([id number]) [facility] ([facility]) [address] [place] [address] [place] CBC W Auto Differential pane l (Bld)on 06-29-2023 Basophils (Bld) [#/Vol] 0.03 10*3/uL [facility] Basophils/100 WBC (Bld) 0.6 % 0.0 - 2.0 % [facility] Eosinophils (Bld) [#/Vol] 0.01 10*3/uL [facility] Eosinophils/100 WBC (Bld) 0.2 % 0.0 - 6.0 % [facility] Erythrocyte distribution width (RBC) [Ratio] 13.8 % 11.5 - 14.5 % [facility] Hematocrit (Bld) [Volume fraction] 32.2 % Low 36.0 - 46.0 % [facility] Hemoglobin (Bld) [Mass/Vol] 10.3 g/dL Low 12.0 - 16.0 g/dL [facility] Immature granulocytes (Bld) [#/Vol] 0.01 10*3/uL [facility] Immature granulocytes/100 WBC (Bld) 0.2 % 0.0 - 0.9 % [facility] Comment on above: Immature Granulocyte Count (IG) includes promyelocytes, myelocytes and metamyelocytes but does not include bands. Percent differential counts (%) should be interpreted in the context of the absolute cell counts (cells/UL). Interpretation and review of laboratory results Abnormal [facility] Lymphocytes (Bld) [#/Vol] 1.15 10*3/uL Low [facility] Lymphocytes/100 WBC (Bld) 23.1 % 13.0 - 44.0 % [facility] MCH (RBC) [Entitic mass] 31.2 pg 26.0 - 34.[address] [facility] MCHC (RBC) [Mass/Vol] 32.0 g/dL 32.0 - 36.0 g/dL [facility] MCV (RBC) [Entitic vol] 98 fL 80 - [address] [facility] Monocytes (Bld) [#/Vol] 0.20 10*3/uL [facility] Monocytes/100 WBC (Bld) 4.0 % 2.0 - 10.0 % [facility] Neutrophils (Bld) [#/Vol] 3.57 10*3/uL [facility] Comment on above: Percent differential counts (%) should be interpreted in the context of the absolute cell counts (cells/uL). Neutrophils/100 WBC (Bld) 71.9 % 40.0 - 80.0 % [facility] Nucleated RBC/100 WBC (Bld) [Ratio] 0.0 % [facility] Platelets (Bld) [#/Vol] 231 10*3/uL [facility] RBC (Bld) [#/Vol] 3.30 10*6/uL [facility] WBC (Bld) [#/Vol] 5.0 10*3/uL [facility] Basophils (Bld) [#/Vol] 0.03 x10*3/uL Normal 0.00-0.10 [facility] Comment on above: Performed By: #### V ERAB #### MELISA Galvan ([id number]) [facility] [address] [place] [address] [place] Basophils/100 WBC (Bld) 0.6 % Normal 0.0-2.0 [facility] Comment on above: Performed By: #### V ERAB #### MELISA Galvan ([id number]) [facility] ([facility]) [address] [place] [address] [place] Eosinophils (Bld) [#/Vol] 0.01 x10*3/uL Normal 0.00-0.70 [facility] Comment on above: Performed By: #### V ERAB #### MELISA Galvan ([id number]) [facility] ([facility]) [address] [place] [address] [place] Eosinophils/100 WBC (Bld) 0.2 % Normal 0.0-6.0 [facility] Comment on above: Performed By: #### V ERAB #### MELISA Galvan ([id number]) [facility] ([facility]) [address] [place] [address] [place] Erythrocyte distribution width (RBC) [Ratio] 13.8 % Normal 11.5-14.5 [facility] Comment on above: Performed By: #### V ERAB #### MELISA Galvan ([id number]) [facility] ([facility]) [address] [place] [address] [place] Hematocrit (Bld) [Volume fraction] 32.2 % Low 36.0-46.0 [facility] Comment on above: Performed By: #### V ERAB #### MELISA Galavn ([id number]) [facility] ([facility] [address] [place] [address] [place] Hemoglobin (Bld) [Mass/Vol] 10.3 g/dL Low 12.0-16.0 [facility] Comment on above: Performed By: #### V ERAB #### MELISA Galvan ([id number]) [facility] ([facility]) [address] [place] [address] [place] Immature granulocytes (Bld) [#/Vol] 0.01 x10*3/uL Normal 0.00-0.70 [facility] Comment on above: Performed By: #### V ERAB #### MELISA Galvan ([id number]) [facility] ([facility]) [id number] [place] [address] [place] Immature granulocytes/100 WBC (Bld) 0.2 % Normal 0.0-0.9 [facility] Comment on above: Result Comment: Janny ture Granulocyte Count (IG) includes promyelocytes, myelocytes and metamyelocytes but does not include bands. Percent differential counts (%) should be interpreted in the context of the absolute cell counts (cells/UL). Performed By: #### V ERAB #### MELISA Galvan ([id number]) [facility] ([facility]) [address] [place] [address] [place] Lymphocytes (Bld) [#/Vol] 1.15 x10*3/uL Low 1.20-4.80 [facility] Comment on above: Performed By: #### V ERAB #### MELISA Galvan ([id number]) [facility] ([facility]) [id number] [place] [address] [place] Lymphocytes/100 WBC (Bld) 23.1 % Normal 13.0-44.0 [facility] Comment on above: Performed By: #### V ERAB #### MELISA Galvan ([id number]) [facility] ([facility]) [id number] [place] [address] [place] MCH (RBC) [Entitic mass] 31.2 pg Normal 26.0-34.0 [facility] Comment on above: Performed By: #### V ERAB #### MELISA Galvan ([id number]) [facility] ([facility]) [id number] [place] [address] [place] MCHC (RBC) [Mass/Vol] 32.0 g/dL Normal 32.0-36.0 [facility] Comment on above: Performed By: #### V ERAB #### MELISA Galvan ([id number]) [facility] ([facility]) [address] [place] [address] [place] MCV (RBC) [Entitic vol] 98 fL Normal 80-100 [facility] Comment on above: Performed By: #### V ERAB #### MELISA Galvan ([id number]) [facility] ([facility]) [address] [place] [address] [place] Monocytes (Bld) [#/Vol] 0.20 x10*3/uL Normal 0.10-1.00 [facility] Comment on above: Performed By: #### V ERAB #### MELISA Galvan () [facility] ([facility]) [address] [place] [address] [place] Monocytes/100 WBC (Bld) 4.0 % Normal 2.0-10.0 [facility] Comment on above: Performed By: #### V ERAB #### MELISA Galvan () [facility] ([facility]) [address] [place] [address] US Neutrophils (Bld) [#/Vol] 3.57 x10*3/uL Normal 1.20-7.70 [facility] Comment on above: Result Comment: Perc ent differential counts (%) should be interpreted in the context of the absolute cell counts (cells/uL). Performed By: #### V ERAB #### MELISA Galvan ([id number]) [facility] ([facility]) [address] [place] [address] [place] Neutrophils/100 WBC (Bld) 71.9 % Normal 40.0-80.0 [facility] Comment on above: Performed By: #### V ERAB #### MELISA Galvan ([id number]) [facility] ([facility]) [address] [place] [address] [place] Nucleated RBC/100 WBC (Bld) [Ratio] 0.0 /100 WBCs Normal 0.0-0.0 [facility] Comment on above: Performed By: #### V ERAB #### MELISA Galvan ([id number]) [facility] ([facility]) [address] [place] [address] [place] Platelets (Bld) [#/Vol] 231 x10*3/uL Normal 150-450 [facility] Comment on above: Performed By: #### V ERAB #### MELISA Galvan ([id number]) [facility] ([facility]) [address] [place] [address] [place] RBC (Bld) [#/Vol] 3.30 x10*6/uL Low 4.00-5.20 [facility] Comment on above: Performed By: #### Beth ERAB #### MELISA Galvan ([id number]) [facility] ([facility]) [address] [place] [address] [place] WBC (Bld) [#/Vol] 5.0 x10*3/uL Normal 4.4-11.3 [facility] Comment on above: Performed By: #### Beth ERAB #### MELISA Galvan ([id number]) [facility] ([facility]) [id number] [place] [address] [place] CBC panel Auto (Bld)on 06-28 Erythrocyte distribution width (RBC) [Ratio] 13.7 % 11.5 - 14.5 % [facility] Hematocrit (Bld) [Volume fraction] 32.7 % Low 36.0 - 46.0 % [facility] Hemoglobin (Bld) [Mass/Vol] 11.0 g/dL Low 12.0 - 16.0 g/dL [facility] Interpretation and review of laboratory results Abnormal [facility] MCH (RBC) [Entitic mass] 30.7 pg 26.0 - 34.[address] [facility] MCHC (RBC) [Mass/Vol] 33.6 g/dL 32.0 - 36.0 g/dL [facility] MCV (RBC) [Entitic vol] 91 fL 80 - [address] [facility] Nucleated RBC/100 WBC (Bld) [Ratio] 0.0 % [facility] Platelets (Bld) [#/Vol] 246 10*3/uL [facility] RBC (Bld) [#/Vol] 3.58 10*6/uL Low [facility] WBC (Bld) [#/Vol] 5.2 10*3/uL [facility] Erythrocyte distribution width (RBC) [Ratio] 13.7 % Normal 11.5-14.5 [facility] Comment on above: Performed By: #### V ERAB #### MELISA Galvan ([id number]) [facility] ([facility]) [address] [place] [address] [place] Hematocrit (Bld) [Volume fraction] 32.7 % Low 36.0-46.0 [facility] Comment on above: Performed By: #### V ERAB #### MELISA Galvan ([id number]) [facility] ([facility]) [address] [place] [address] [place] Hemoglobin (Bld) [Mass/Vol] 11.0 g/dL Low 12.0-16.0 [facility] Comment on above: Performed By: #### V ERAB #### MELISA Galvan ([id number]) [facility] ([facility]) [address] [place] [address] [place] MCH (RBC) [Entitic mass] 30.7 pg Normal 26.0-34.0 [facility] Comment on above: Performed By: #### V ERAB #### MELISA Galvan ([id number]) [facility] ([facility]) [address] [place] [address] US MCHC (RBC) [Mass/Vol] 33.6 g/dL Normal 32.0-36.0 [facility] Comment on above: Performed By: #### V ERAB #### MELISA Galvan ([id number]) [facility] ([facility]) [address] [place] [address] US MCV (RBC) [Entitic vol] 91 fL Normal 80-100 [facility] Comment on above: Performed By: #### V ERAB #### MELISA Galvan ([id number]) [facility] ([facility]) [address] [place] [address] US Nucleated RBC/100 WBC (Bld) [Ratio] 0.0 /100 WBCs Normal 0.0-0.0 [facility] Comment on above: Performed By: #### V ERAB #### MELISA Galvan ([id number]) [facility] ([facility]) [address] [place] [address] [place] Platelets (Bld) [#/Vol] 246 x10*3/uL Normal 150-450 [facility] Comment on above: Performed By: #### V ERAB #### MELISA Galvan ([id number]) [facility] [address] [place] [address] [place] RBC (Bld) [#/Vol] 3.58 x10*6/uL Low 4.00-5.20 [facility] Comment on above: Performed By: #### V ERAB #### MELISA Galvan ([id number]) [facility] ([facility]) [address] [place] [address] US WBC (Bld) [#/Vol] 5.2 x10*3/uL Normal 4.4-11.3 [facility] Comment on above: Performed By: #### V ERAB #### MELISA Galvan ([id number]) [facility] ([facility]) [address] [place] [address] ABDOMEN PELVIS WO IV CONT [facility] 06-29-2023 CT ABDOMEN PELVIS WO IV CONTRAST Interpreted By: Fly West, STUDY: CT ABDOMEN PELVIS WO IV CONTRAST; 06/29/2023 11:09 pm INDICATION: Signs/Symptoms:Abdo kerry pain. COMPARISON: 03/16/2023 ACCESSION NUMBER(S): [id number] ORDERING CLINICIAN: DAVID VALADEZ TECHNIQUE: Axial CT [...] Fly West 06/29/2023 11:53 PM Dictation workstation: [id number] [facility] CT Abdomen WO contraston 1. No acute abdominal or pelvic process. 2. Numerous hepatic hypodense lesions, incompletely characterize, though likely reflecting cysts. Appearance is similar to 03/16/2023. 3. Postsurgical changes as above. Signed by: Fly West 06/29/2023 11:53 PM Dictation workstation: [id number] MMODAL Interpreted By: Fly West, STUDY: CT ABDOMEN PELVIS WO IV CONTRAST; 06/29/2023 11:09 pm INDICATION: Signs/Symptoms:Abdo kerry pain. COMPARISON: 03/16/2023 ACCESSION NUMBER(S): [id number] ORDERING CLINICIAN: DAVID VALADEZ TECHNIQUE: Axial CT [...] There is mild multilevel spinal degenerative change. MMODAL Fly West, DO - 06/29/2023 Interpreted By: Fly West, STUDY: CT ABDOMEN PELVIS WO IV CONTRAST; 06/29/2023 11:09 pm INDICATION: Signs/Symptoms:Abdo kerry pain. COMPARISON: 03/16/2023 ACCESSION NUMBER(S): [id number] ORDERING CLINICIAN: DAVID VALADEZ TECHNIQUE: Axial CT [...] Fly West 06/29/2023 11:53 PM Dictation workstation: [id number] [facility] Work Phone: Radiology Study observation (narrative) [facility] Work Phone: CT Abdomen WO contrastOrdere d By: Fly West on 06-29-[address] [facility] Work Phone: Comprehensive metabolic 2000 panelon 06-29-2023 Albumin [Mass/Vol] 3.8 g/dL Normal 3.5-5.0 [facility] Comment on above: Performed By: #### V ERAB #### MELISA Galvan ([id number]) [facility] ([facility]) [address] [place] [address] [place] ALP (Bld) [Catalytic activity/Vol] 51 U/L Normal 35-125 [facility] Comment on above: Performed By: #### V ERAB #### MELISA Galvan ([id number]) [facility] ([facility]) [address] [place] [address] US ALT [Catalytic activity/Vol] 35 U/L Normal 5-40 [facility] Comment on above: Performed By: #### V ERAB #### MELISA Galvan ([id number]) [facility] ([facility]) [address] [place] [address] [place] Anion gap [Moles/Vol] 13 mmol/L Normal <=19 [facility] Comment on above: Performed By: #### V ERAB #### MELISA Galvan ([id number]) [facility] ([facility]) [address] [place] [address] US AST [Catalytic activity/Vol] 52 U/L High 5-40 [facility] Comment on above: Performed By: #### V ERAB #### MELISA Galvan ([id number]) [facility] ([facility]) [address] [place] [address] US Bilirubin [Mass/Vol] mg/dL Normal 0.1-1.2 [facility] Comment on above: Performed By: #### V ERAB #### MELISA Galvan () [facility] ([facility]) [address] [place] [address] US Calcium [Mass/Vol] 9.1 mg/dL Normal 8.5-10.4 [facility] Comment on above: Performed By: #### V ERAB #### MELISA Galvan ([id number]) [facility] ([facility]) [address] [place] [address] US Chloride [Moles/Vol] 90 mmol/L Low 97-107 [facility] Comment on above: Performed By: #### V ERAB #### MELISA Galvan ([id number]) [facility] ([facility]) [address] [place] [address] US CO2 [Moles/Vol] 19 mmol/L Low 24-31 [facility] Comment on above: Performed By: #### V ERAB #### MELISA Galvan ([id number]) [facility] ([facility] [address] [place] [address] US Creatinine [Mass/Vol] 0.70 mg/dL Normal 0.40-1.60 [facility] Comment on above: Performed By: #### V ERAB #### MELISA Galvan ([id number]) [facility] ([facility]) [address] [place] [address] US GFR/1.73 sq M.predicted MDRD (S/P/Bld) [Vol rate/Area] mL/min/{1.73_m2} Normal >60 [facility] Comment on above: Result Comment: Calc ulations of estimated GFR are performed using the 2020 CKD-EPI Study Refit equation without the race variable for the IDMS-Traceable creatinine methods. https://jasn.asnjournals.org/content//22/ASN.69320420 88 Performed By: #### V ERAB #### MELISA Galvan ([id number]) [facility] ([employer]) [address] [place] [address] US Glucose [Mass/Vol] 920 mg/dL Critically high 65-99 U [facility] Comment on above: Result Comment: Resu lt rechecked Possible IV contamination. Results do not correlate with previous and post results. Patient was redraw . Performed By: #### V ERAB #### MELISA Galvan ([id number]) [facility] ([employer]) [address] [place] [address] US Potassium [Moles/Vol] 6.8 mmol/L Critically high 3.4-5.1 [facility] Comment on above: Result Comment: Resu lt rechecked Possible IV contamination. Results do not correlate with previus and post results. Patient was redrawn. Performed By: #### V ERAB #### MELISA Galvan ([id number]) [facility] ([facility]) [address] [place] [address] US Protein [Mass/Vol] 6.3 g/dL Normal 5.9-7.9 [facility] Comment on above: Performed By: #### V ERAB #### MELISA Galvan ([id number]) [facility] ([employer]) [address] [place] [address] US Sodium [Moles/Vol] 122 mmol/L Low 133-145 [facility] Comment on above: Result Comment: Resu lt rechecked Performed By: #### V ERAB #### MELISA Galvan ([id number]) [facility] ([facility]) [address] [place] [address] US Urea nitrogen [Mass/Vol] 15 mg/dL Normal 8-25 [facility] Comment on above: Performed By: #### V ERAB #### MELISA Galvan ([id number]) [facility] ([employer]) [address] [place] [address] US Glucose Test strip manual (B ld) [Mass/Vol]on 06-29-2023 Glucose [Mass/Vol] 117 mg/dL High 74 - 99 mg/dL [facility] Interpretation and review of laboratory results Abnormal [facility] Glucose [Mass/Vol] 117 mg/dL High 74-99 [facility] Comment on above: Performed By: #### V ERAB #### MELISA Galvan ([id number]) [facility] ([facility]) [address] [place] [address] Home Health Recordson 2023 Home Health Records [id number] 8#1.00TIFF Normal [facility] Auth for Release of Medical Recordson 06-23-2023 Auth for Release of Medical Records [id number] B#1.00TIFF [facility] ED Note-Physicianon 06-23-19 ED Note-Physician [id number] D5#1.00TIFF [facility] ED Note-Physicianon 06-22-19 24 ED Note-Physician [id number] 906#1.00TIFF [facility] ED Note-Physician [id number] 15#1.00TIFF [facility] Lab Reportson 06-22-2023 Lab Reports [id number] 447#1.00TIFF [facility] Provider Letteron 06-22-2023 Provider Letter [facility] RAD - CT Reporton 06-22-2023 RAD - CT Report [id number] 594#1.00TIFF [facility] Home Health Recordson 2023 Home Health Records [id number] 00#1.00TIFF [facility] ALLIED HEALTHon 06-18-2023 ALLIED HEALTH Normal [facility] CBC W Auto Differential pane l (Bld)on 06-18-2023 Basophils (Bld) [#/Vol] 0.04 10*3/uL Normal <0.11 [facility] Comment on above: Order Comment: Speci men Type: BLOOD SPECIMENOrdering Facility: [facility] Address: [address] [place] [address] Performed By: #### 5 7021-8 ####[facility] LABORATORYCLIA [id number] [place] [id number] [place] Basophils/100 WBC (Bld) 0.8 % Normal [facility] Comment on above: Order Comment: Speci men Type: BLOOD SPECIMENOrdering Facility: [facility] Address: [address] [place] [address] Performed By: #### 5 7021-8 ####OSVALDO LABORATORYCLIA [id number] [place] [address] [place] Differential cell count method Nom (Bld) Auto Normal [facility] Comment on above: Order Comment: Speci men Type: BLOOD SPECIMENOrdering Facility: [facility] Address: [address] [place] [address] Performed By: #### 5 7021-8 ####OSVALDO LABORATORYCLIA [id number] [place] [id number] [place] Eosinophils (Bld) [#/Vol] 0.13 10*3/uL Normal <0.46 [facility] Comment on above: Order Comment: Speci men Type: BLOOD SPECIMENOrdering Facility: [facility] Address: [address] [place] [address] Performed By: #### 5 7021-8 ####OSVALDO LABORATORYCLIA [id number] [place] [id number] [place] Eosinophils/100 WBC (Bld) 2.8 % Normal [facility] Comment on above: Order Comment: Speci men Type: BLOOD SPECIMENOrdering Facility: [facility] Address: [address] [place] [address] Performed By: #### 5 7021-8 ####OSVALDO LABORATORYCLIA [id number] [place] [id number] [place] Erythrocyte distribution width (RBC) [Ratio] 13.3 % Normal 11.5-15.0 [facility] Comment on above: Order Comment: Speci men Type: BLOOD SPECIMENOrdering Facility: [facility] Address: [address] [place] [address] Performed By: #### 5 7021-8 ####OSVALDO LABORATORYCLIA [id number] [place] [address] [place] Hematocrit (Bld) [Volume fraction] 34.6 % Low 36.0-46.0 [facility] Comment on above: Order Comment: Speci men Type: BLOOD SPECIMENOrdering Facility: [facility] Address: [address] [place] [address] Performed By: #### 5 7021-8 ####OSVALDO LABORATORYCLIA [id number] [place] [address] [place] Hemoglobin (Bld) [Mass/Vol] 12.0 g/dL Normal 11.5-15.5 [facility] Comment on above: Order Comment: Speci men Type: BLOOD SPECIMENOrdering Facility: [facility] Address: [address] [place] [address] Performed By: #### 5 7021-8 ####OSVALDO LABORATORYCLIA [id number] [place] [id number] [place] Immature granulocytes (Bld) [#/Vol] 10*3/uL Normal <0.10 [facility] Comment on above: Order Comment: Speci men Type: BLOOD SPECIMENOrdering Facility: [facility] Address: [address] [place] [address] Performed By: #### 5 7021-8 ####OSVALDO LABORATORYCLIA [id number] [address] [place] Immature granulocytes/100 WBC (Bld) 0.2 % Normal [facility] Comment on above: Order Comment: Speci men Type: BLOOD SPECIMENOrdering Facility: [facility] Address: [address] [place] [address] Performed By: #### 5 7021-8 ####TREZEVANT LABORATORYCLIA [id number] [address] [place] Lymphocytes (Bld) [#/Vol] 1.90 10*3/uL Normal 1.00-4.00 [facility] Comment on above: Order Comment: Speci men Type: BLOOD SPECIMENOrdering Facility: [facility] Address: [address] [place] [address] Performed By: #### 5 7021-8 ####[facility] LABORATORYCLIA [id number] [address] STATES [facility] Lymphocytes/100 WBC (Bld) 40.3 % Normal [facility] Comment on above: Order Comment: Speci men Type: BLOOD SPECIMENOrdering Facility: [facility] Address: [address] [place] [address] Performed By: #### 5 7021-8 ####[facility] LABORATORYCLIA [id number] [address] STATES [facility] MCH (RBC) [Entitic mass] 30.9 pg Normal 26.0-34.0 [facility] Comment on above: Order Comment: Speci men Type: BLOOD SPECIMENOrdering Facility: [facility] Address: [address] [place] [address] Performed By: #### 5 7021-8 ####[facility] LABORATORYCLIA [id number] [address] [place] MCHC (RBC) [Mass/Vol] 34.7 g/dL Normal 30.5-36.0 [facility] Comment on above: Order Comment: Speci men Type: BLOOD SPECIMENOrdering Facility: [facility] Address: [address] [place] [address] Performed By: #### 5 7021-8 ####[facility] LABORATORYCLIA [id number] [address] MCV (RBC) [Entitic vol] 89.2 fL Normal 80.0-100.0 [facility] Comment on above: Order Comment: Speci men Type: BLOOD SPECIMENOrdering Facility: [facility] Address: [address] [place] [address] Performed By: #### 5 7021-8 ####OSVALDO LABORATORYCLIA [id number] [place] [id number] [place] Monocytes (Bld) [#/Vol] 0.24 10*3/uL Normal <0.87 [facility] Comment on above: Order Comment: Speci men Type: BLOOD SPECIMENOrdering Facility: [facility] Address: [address] [place] [address] Performed By: #### 5 7021-8 ####OSVALDO LABORATORYCLIA [id number] [place] [address] [place] Monocytes/100 WBC (Bld) 5.1 % Normal [facility] Comment on above: Order Comment: Speci men Type: BLOOD SPECIMENOrdering Facility: [facility] Address: [address] [place] [address] Performed By: #### 5 7021-8 ####OSVALDO LABORATORYCLIA [id number] [place] [address] [place] Neutrophils (Bld) [#/Vol] 2.39 10*3/uL Normal 1.45-7.50 [facility] Comment on above: Order Comment: Speci men Type: BLOOD SPECIMENOrdering Facility: [facility] Address: [address] [place] [address] Performed By: #### 5 7021-8 ####OSVALDO LABORATORYCLIA [id number] [place] [address] [place] Neutrophils/100 WBC (Bld) 50.8 % Normal [facility] Comment on above: Order Comment: Speci men Type: BLOOD SPECIMENOrdering Facility: [facility] Address: [address] [place] [address] Performed By: #### 5 7021-8 ####OSVALDO LABORATORYCLIA [id number] [place] [id number] [place] Nucleated RBC (Bld) [#/Vol] 10*3/uL Normal <0.01 [facility] Comment on above: Order Comment: Speci men Type: BLOOD SPECIMENOrdering Facility: [facility] Address: [address] [place] [address] Performed By: #### 5 7021-8 ####[facility] LABORATORYCLIA [id number] [place] [address] [place] Nucleated RBC/100 WBC (Bld) [Ratio] 0.0 /100 WBC Normal [facility] Comment on above: Order Comment: Speci men Type: BLOOD SPECIMENOrdering Facility: [facility] Address: [address] [place] [address] Performed By: #### 5 7021-8 ####TREZEVANT LABORATORYCLIA [id number] [place] [id number] [place] Platelet mean volume (Bld) [Entitic vol] 11.4 fL Normal 9.0-12.7 [facility] Comment on above: Order Comment: Speci men Type: BLOOD SPECIMENOrdering Facility: [facility] Address: [address] [place] [address] Performed By: #### 5 7021-8 ####TREZEVANT LABORATORYCLIA [id number] [place] [id number] [place] Platelets (Bld) [#/Vol] 233 10*3/uL Normal 150-400 [facility] Comment on above: Order Comment: Speci men Type: BLOOD SPECIMENOrdering Facility: [facility] Address: [address] [place] [address] Performed By: #### 5 7021-8 ####TREZEVANT LABORATORYCLIA [id number] [place] [address] [place] RBC (Bld) [#/Vol] 3.88 10*6/uL Low 3.90-5.20 [facility] Comment on above: Order Comment: Speci men Type: BLOOD SPECIMENOrdering Facility: [facility] Address: [address] [place] [address] Performed By: #### 5 7021-8 ####TREZEVANT LABORATORYCLIA [id number] [place] [address] [place] WBC (Bld) [#/Vol] 4.71 10*3/uL Normal 3.70-11.00 [facility] Comment on above: Order Comment: Speci men Type: BLOOD SPECIMENOrdering Facility: [facility] Address: [facility] [place] [address] Performed By: #### 5 7021-8 ####TREZEVANT LABORATORYCLIA [id number] [place] [id number] [place] CNOVon 06-18-2023 CNOV Normal [facility] CONSULTon 06-18-2023 CONSULT Normal [facility] CT ABD/PEL W IVCONon 024 CT ABD/PEL W IVCON Normal [facility] Comprehensive metabolic 2000 panelon 06-18-2023 Albumin [Mass/Vol] 4.5 g/dL Normal 3.9-4.9 [facility] Comment on above: Order Comment: Speci men Type: BLOOD SPECIMENOrdering Facility: [facility] Address: [address] [place] [address] Performed By: #### 1 9123-9, 3040-3, 03366-4 ####TREZEV[facility] LABORATORYCLIA [id number] [place] [address] [place] ALP [Catalytic activity/Vol] 58 U/L Normal 34-123 [facility] Comment on above: Order Comment: Speci men Type: BLOOD SPECIMENOrdering Facility: [facility] Address: [address] [place] [address] Performed By: #### 1 9123-9, 3040-3, 85280-8 ####T[facility] LABORATORYCLIA [id number] [place] [address] [place] ALT [Catalytic activity/Vol] 13 U/L Normal 7-38 [facility] Comment on above: Order Comment: Speci men Type: BLOOD SPECIMENOrdering Facility: [facility] Address: [address] [place] [address] Performed By: #### 1 9123-9, 3040-3, 59429-7 ####TREZEVANT LABORATORYCLIA [id number] [place] [address] [place] Anion gap [Moles/Vol] 13 mmol/L Normal 9-18 [facility] Comment on above: Order Comment: Speci men Type: BLOOD SPECIMENOrdering Facility: [facility] Address: [address] [facility] [place] [address] Performed By: #### 1 9123-9, 3040-3, 48024-3 ####[facility] LABORATORYCLIA [id number] [place] [address] [place] AST [Catalytic activity/Vol] 31 U/L Normal 13-35 [facility] Comment on above: Order Comment: Speci men Type: BLOOD SPECIMENOrdering Facility: [facility] Address: [address] [place] [address] Performed By: #### 1 9123-9, 0-3, 12164-8 ####TREZEVANT LABORATORYCLIA [id number] [place] [address] [place] Bilirubin [Mass/Vol] 0.4 mg/dL Normal 0.2-1.3 [facility] Comment on above: Order Comment: Speci men Type: BLOOD SPECIMENOrdering Facility: [facility] Address: [address] [place] [address] Performed By: #### 1 9123-9, 0-3, 66106-2 ####[facility] LABORATORYCLIA [id number] [place] [address] [place] Calcium [Mass/Vol] 9.0 mg/dL Normal 8.5-10.2 [facility] Comment on above: Order Comment: Speci men Type: BLOOD SPECIMENOrdering Facility: [facility] Address: [address] [place] [address] Performed By: #### 1 9123-9, 0-3, 35423-2 ####TREZEV[facility] LABORATORYCLIA [id number] [place] [address] [place] Chloride [Moles/Vol] 103 mmol/L Normal 97-105 [facility] Comment on above: Order Comment: Speci men Type: BLOOD SPECIMENOrdering Facility: [facility] Address: [address] [place] [id number] Performed By: #### 1 9123-9, 3040-3, 45487-3 ####[facility] LABORATORYCLIA [id number] [place] [address] [place] CO2 [Moles/Vol] 22 mmol/L Normal 22-30 [facility] Comment on above: Order Comment: Speci men Type: BLOOD SPECIMENOrdering Facility: [facility] Address: [address] [place] [address] Performed By: #### 1 9123-9, 3040-3, 54449-9 ####[facility] LABORATORYCLIA [id number] [place] [address] [place] Creatinine [Mass/Vol] 0.83 mg/dL Normal 0.58-0.96 [facility] Comment on above: Order Comment: Speci men Type: BLOOD SPECIMENOrdering Facility: [facility] Address: [address] [place] [address] Performed By: #### 1 9123-9, 0-3, 74905-3 ####[facility] LABORATORYCLIA [id number] [place] [address] [place] Creatinine and Glomerular filtration rate.predicted panel (S/P/Bld) 95 mL/min/1.73m??? Normal >=60 [facility] Comment on above: Order Comment: Speci men Type: BLOOD SPECIMENOrdering Facility: [facility] Address: [address] [place] [address] Result Comment: Jessica mated Glomerular Filtration Rate [...] GFR. Performed By: #### 1 9123-9, 3040-3, 94136-4 ####OSVALDO LABORATORYCLIA [id number] [place] [address] [place] Glucose [Mass/Vol] 77 mg/dL Normal 74-99 [facility] Comment on above: Order Comment: Specmichael marrero Type: BLOOD SPECIMENOrdering Facility: [facility] Address: [address] [place] [address] Result Comment: The [place] [employer] (ADA) provides guidance for cutoff [...] Standards of Medical Care in Diabetes 2016, [place] [employer]. Diabetes Care. 2016.39(Suppl 1). Performed By: #### 1 9123-9, 0-3, 77786-2 ####TREZEVANT LABORATORYCLIA [id number] [place] [address] [place] Potassium [Moles/Vol] 3.4 mmol/L Low 3.7-5.1 [facility] Comment on above: Order Comment: Geraldo elida Type: BLOOD SPECIMENOrdering Facility: [facility] Address: [address] [place] [address] Performed By: #### 1 9123-9, 3040-3, 43139-5 ####T[facility] LABORATORYCLIA [id number] [place] [address] [place] Protein [Mass/Vol] 7.6 g/dL Normal 6.3-8.0 [facility] Comment on above: Order Comment: Lyssamichael marrero Type: BLOOD SPECIMENOrdering Facility: [facility] Address: [address] [place] [address] Performed By: #### 1 9123-9, 3040-3, 17313-5 ####[facility] LABORATORYCLIA [id number] [place] [id number] [place] Sodium [Moles/Vol] 138 mmol/L Normal 136-144 [facility] Comment on above: Order Comment: Speci men Type: BLOOD SPECIMENOrdering Facility: [facility] Address: [address] [place] [address] Performed By: #### 1 9123-9, 0-3, 67830-9 ####[facility] LABORATORYCLIA [id number] [place] [id number] [place] Urea nitrogen [Mass/Vol] 12 mg/dL Normal 7-21 [facility] Comment on above: Order Comment: Speci men Type: BLOOD SPECIMENOrdering Facility: [facility] Address: [address] [place] [address] Performed By: #### 1 9123-9, 3039-3, 27201-7 ####[facility] LABORATORYCLIA [id number] [place] [id number] [place] ECG COMPLETEon 06-18-2023 ECG COMPLETE Normal [facility] ED NOTEon 06-18-2023 ED NOTE Normal [facility] ED NOTE HNO ID: [id number] Author: HIEU HERNANDEZ RN Service: ? Author Type: Registered Nurse Type: ED Notes Filed: 06/18/2023 19:05 Note Text: Patient verbalized understanding of discharge instructions and follow up care. [facility] ED NOTE HNO ID: [id number] Author: HIEU HERNANDEZ RN Service: ? Author Type: Registered Nurse Type: ED Notes Filed: 06/18/2023 18:38 Note Text: Long catheter with leg bag inserted and orange juice given via peg tube given per Earnest INMAN verbal order. [facility] ED PROV NOTEon 06-18-2023 ED PROV NOTE Normal [facility] HCG QUALITATIVEon 06-18-2023 HCG, QUALITATIVE Negative Normal Negative [facility] Comment on above: Order Comment: Speci men Type: BLOOD SPECIMENOrdering Facility: [facility] Address: [address] [place] [address] Performed By: #### H CG ####[facility] LABORATORYCLIA [id number] [place] [id number] [place] Lipase SerPl-cCncon 06-18-19 24 Lipase [Catalytic activity/Vol] 31 U/L Normal 16-61 [facility] Comment on above: Order Comment: Speci men Type: BLOOD SPECIMENOrdering Facility: [facility] Address: [address] [place] [address] Performed By: #### 1 9123-9, 3040-3, 73624-9 ####[facility] LABORATORYCLIA [id number] [place] [address] [place] Magnesium SerPl-mCncon 06-17 Magnesium [Mass/Vol] 2.0 mg/dL Normal 1.7-2.3 [facility] Comment on above: Order Comment: Speci men Type: BLOOD SPECIMENOrdering Facility: [facility] Address: [address] [place] [address] Performed By: #### 1 9123-9, 0-3, 65808-5 ####[facility] LABORATORYCLIA [id number] [address] [place] Urinalysis complete panel (U )on 06-18-2023 Bacteria LM.HPF (Urine sed) [#/Area] Rare Abnormal None Seen [facility] Comment on above: Order Comment: Speci men Type: URINE SPECIMENOrdering Facility: [facility] Address: [address] [place] [address] Performed By: #### 2 4356-8 ####[facility] LABORATORYCLIA [id number] [place] [address] [place] Bilirubin Ql (U) Negative Normal Negative [facility] Comment on above: Order Comment: Speci men Type: URINE SPECIMENOrdering Facility: [facility] Address: [address] [place] [address] Performed By: #### 2 4356-8 ####[facility] LABORATORYCLIA [id number] [place] [address] [place] Clarity (Unsp spec) Clear Normal Clear [facility] Comment on above: Order Comment: Speci men Type: URINE SPECIMENOrdering Facility: [facility] Address: [address] [place] [address] Performed By: #### 2 4356-8 ####[facility] LABORATORYCLIA [id number] [place] [address] [place] Color (U) Light Yellow Normal Yellow [facility] Comment on above: Order Comment: Speci men Type: URINE SPECIMENOrdering Facility: [facility] Address: [address] [place] [address] Performed By: #### 2 4356-8 ####[facility] LABORATORYCLIA [id number] [place] [address] [place] Epithelial cells LM.HPF (Urine sed) [#/Area] Few Normal [facility] Comment on above: Order Comment: Speci men Type: URINE SPECIMENOrdering Facility: [facility] Address: [address] [place] [address] Performed By: #### 2 4356-8 ####[facility] LABORATORYCLIA [id number] [place] [address] [place] Glucose Test strip (U) [Mass/Vol] Negative Normal Trace, Negative [facility] Comment on above: Order Comment: Speci men Type: URINE SPECIMENOrdering Facility: [facility] Address: [address] [place] [address] Performed By: #### 2 4356-8 ####[facility] LABORATORYCLIA [id number] [place] [address] [place] Hemoglobin Ql (U) Negative Normal Negative, Trace Fa [facility] Comment on above: Order Comment: Speci men Type: URINE SPECIMENOrdering Facility: [facility] Address: [address] [place] [address] Performed By: #### 2 4356-8 ####[facility] LABORATORYCLIA [id number] [place] [address] [place] Ketones Ql (U) Negative Normal Negative, Trace [facility] Comment on above: Order Comment: Speci men Type: URINE SPECIMENOrdering Facility: [facility] Address: [address] [place] [address] Performed By: #### 2 4356-8 ####[facility] LABORATORYCLIA [id number] [place] [address] [place] Leukocyte esterase Test strip Ql (U) Negative Normal Negative, 25 Patito/uL [facility] Comment on above: Order Comment: Speci men Type: URINE SPECIMENOrdering Facility: [facility] Address: [address] [place] [address] Performed By: #### 2 4356-8 ####[facility] LABORATORYCLIA [id number] [place] [address] [place] Nitrite Ql (U) Negative Normal Negative [facility] Comment on above: Order Comment: Speci men Type: URINE SPECIMENOrdering Facility: [facility] Address: [address] [place] [address] Performed By: #### 2 4356-8 ####[facility] LABORATORYCLIA [id number] [place] [address] [place] pH (U) 7.5 [pH] Normal 5.0-8.0 [facility] Comment on above: Order Comment: Speci men Type: URINE SPECIMENOrdering Facility: [facility] Address: [address] [place] [address] Performed By: #### 2 4356-8 ####[facility] LABORATORYCLIA [id number] [place] [address] [place] Protein (U) [Mass/Vol] Negative Normal Trace, Negative [facility] Comment on above: Order Comment: Speci men Type: URINE SPECIMENOrdering Facility: [facility] Address: [address] [place] [address] Performed By: #### 2 4356-8 ####[facility] LABORATORYCLIA [id number] [place] [address] [place] RBC LM.HPF (Urine sed) [#/Area] 0-3 /HPF Normal 0-3 /HPF [facility] Comment on above: Order Comment: Speci men Type: URINE SPECIMENOrdering Facility: [facility] Address: [address] [place] [address] Performed By: #### 2 4356-8 ####[facility] LABORATORYCLIA [id number] [place] [address] [place] Specific gravity (U) [Rel density] 1.009 Normal 1.005-1.030 [facility] Comment on above: Order Comment: Speci men Type: URINE SPECIMENOrdering Facility: [facility] Address: [address] [place] [address] Performed By: #### 2 4356-8 ####[facility] LABORATORYCLIA [id number] [place] [address] [place] Urobilinogen Ql (U) Normal Normal Normal [facility] Comment on above: Order Comment: Speci men Type: URINE SPECIMENOrdering Facility: [facility] Address: [address] [place] [address] Performed By: #### 2 4356-8 ####[facility] LABORATORYCLIA [id number] [place] [address] [place] WBC LM.HPF (Urine sed) [#/Area] 0-5 /HPF Normal 0-5 /HPF [facility] Comment on above: Order Comment: Speci men Type: URINE SPECIMENOrdering Facility: [facility] Address: [address] [place] [address] Performed By: #### 2 4356-8 ####[facility] LABORATORYCLIA [id number] [place] [address] [place] CNPNon 06-17-2023 CNPN Normal [facility] Home Health Recordson 2023 Home Health Records [id number] B4#1.00TIFF Normal [facility] Physician Referralon 024 Physician Referral [id number] 101#1.00TIFF Normal [facility] Provider Letteron 06-16-2023 Provider Letter Normal [facility] CNPNon 06-15-2023 CNPN Normal [facility] ED Note-Physicianon 06-15-19 24 ED Note-Physician [id number] D0#1.00TIFF Normal [facility] Outside Hospital Correspo ndenceon 06-15-2023 Outside [facility] Correspondence [id number] A2#1.00TIFF Normal [facility] Physician Referralon 024 Physician Referral [id number] 38#1.00TIFF Normal [facility] RAD - CT Reporton 06-15-2023 RAD - CT Report [id number] F9#1.00TIFF Normal [facility] Transfer Inon 06-15-2023 Transfer In [id number] 80#1.00TIFF Normal [facility] Ambulatory Visit Summaryon 0 06-14-2023 Ambulatory Visit Summary Normal [address] [place] [address] [place] [address]- \.br\ Medications\.br\ What How Much When Why [...] for choosing us for your care.\.br\ \.br\ [facility] Auth for Release of Medical Recordson 06-14-2023 Auth for Release of Medical Records [id number] E3#1.00TIFF [facility] CNPNon 06-14-2023 CNPN Normal [facility] Family Medicine Office/Clini c Noteon 06-14-2023 Family Medicine Office/Clinic Note Normal [facility] Comment on above: Result Comment: Elec tronically Signed By: Jaquan Paula\.br\Date and Time Signed: 06/14/23 13:22 EDT Home Health Recordson 2023 Home Health Records [id number] E4#1.00TIFF [facility] Population Healthon 06-11-19 Population Health Normal [facility] Home Health Recordson 2023 Home Health Records [id number] 22#1.00TIFF [facility] Retail - Clinical Noteon Retail - Clinical Note [id number] F2#1.00TIFF [facility] ALLIED HEALTHon 06-09-2023 ALLIED HEALTH Normal [facility] Basic metabolic 2000 panelon 06-09-2023 Anion gap [Moles/Vol] 7 mmol/L Low 9-18 [facility] Comment on above: Order Comment: Speci men Type: BLOOD SPECIMENOrdering Facility: [facility] Address: [address] [place] [address] Performed By: #### 2 4321-2 ####[facility] LABORATORYCLIA [id number] [address] [address] [place] Calcium [Mass/Vol] 8.6 mg/dL Normal 8.5-10.2 [facility] Comment on above: Order Comment: Speci men Type: BLOOD SPECIMENOrdering Facility: [facility] Address: [address] [place] [address] Performed By: #### 2 4321-2 ####[facility] LABORATORYCLIA [id number] [place] [address] [place] Chloride [Moles/Vol] 107 mmol/L High 97-105 [facility] Comment on above: Order Comment: Speci men Type: BLOOD SPECIMENOrdering Facility: [facility] Address: [address] [place] [address] Performed By: #### 2 4321-2 ####[facility] LABORATORYCLIA [id number] [place] [address] [place] CO2 [Moles/Vol] 24 mmol/L Normal 22-30 [facility] Comment on above: Order Comment: Speci men Type: BLOOD SPECIMENOrdering Facility: [facility] Address: [address] [place] [address] Performed By: #### 2 4321-2 ####[facility] LABORATORYCLIA [id number] [place] [address] [place] Creatinine [Mass/Vol] 0.68 mg/dL Normal 0.58-0.96 [facility] Comment on above: Order Comment: Speci men Type: BLOOD SPECIMENOrdering Facility: [facility] Address: [address] [place] [address] Performed By: #### 2 4321-2 ####[facility] LABORATORYIA [id number] [place] [address] [place] Creatinine and Glomerular filtration rate.predicted panel (S/P/Bld) 117 mL/min/1.73m??? Normal >=60 [facility] Comment on above: Order Comment: Speci men Type: BLOOD SPECIMENOrdering Facility: [facility] Address: [address] [place] [address] Result Comment: Jessica mated Glomerular Filtration Rate [...] actual GFR. Performed By: #### 2 4321-2 ####[facility] [id number] [place] [address] [place] Glucose [Mass/Vol] 89 mg/dL Normal 74-99 [facility] Comment on above: Order Comment: Geraldo marrero Type: BLOOD SPECIMENOrdering Facility: [facility] Address: [address] [place] [address] Result Comment: The [place] [employer] (ADA) provides guidance for cutoff [...] Standards of Medical Care in Diabetes 2016, [place] [employer]. Diabetes Care. 2016.39(Suppl 1). Performed By: #### 2 4321-2 ####[facility] [id number] [place] [address] [place] Potassium [Moles/Vol] 4.1 mmol/L Normal 3.7-5.1 [facility] Comment on above: Order Comment: Geraldo marrero Type: BLOOD SPECIMENOrdering Facility: [facility] Address: [address] [place] [id number] Performed By: #### 2 4321-2 ####[facility] [id number] [place] [address] [place] Sodium [Moles/Vol] 138 mmol/L Normal 136-144 [facility] Comment on above: Order Comment: Geraldo marrero Type: BLOOD SPECIMENOrdering Facility: [facility] Address: [address] [place] [address] Performed By: #### 2 4321-2 ####[facility] LABORATORYCLIA [id number] [place] [address] [place] Urea nitrogen [Mass/Vol] 10 mg/dL Normal 7- [facility] Comment on above: Order Comment: Speci men Type: BLOOD SPECIMENOrdering Facility: [facility] Address: [address] [place] [address] Performed By: #### 2 4321-2 ####[facility] LABORATORYCLIA [id number] [place] [address] [place] CASE MANAGEMon 06-09-2023 CASE MANAGEM Normal [facility] CNDSon 06-09-2023 CNDS Normal [facility] CONSULT PROGon 06-08-2023 CONSULT PROG Normal [facility] TOXICOLOGY SCREEN, ROUTINE U RINEon 06-08-2023 Amphetamines Confirm (U) [Mass/Vol] Negative Normal Negative [facility] Comment on above: Order Comment: Speci men Type: URINE SPECIMENOrdering Facility: [facility] Address: [address] [place] [address] Result Comment: Cuto ff threshold at 1000 ng/mL. Performed By: #### U TOX2 ####[facility] [id number] [place] [address] [place] BARBITURATES, URINE Negative Normal Negative [facility] Comment on above: Order Comment: Speci men Type: URINE SPECIMENOrdering Facility: [facility] Address: [address] [place] [address] Result Comment: Cuto ff threshold at 200 ng/mL. Performed By: #### U TOX2 ####[facility] LABORATORYIA [id number] [place] [id number] [place] BENZODIAZEPINES, UR Negative Normal Negative [facility] Comment on above: Order Comment: Speci men Type: URINE SPECIMENOrdering Facility: [facility] Address: [address] [place] [address] Result Comment: Cuto ff threshold at 200 ng/mL. Performed By: #### U TOX2 ####[facility] LABORATORYIA [id number] [place] [address] [place] Cannabinoids Screen Ql (U) Negative Normal Negative [facility] Comment on above: Order Comment: Speci men Type: URINE SPECIMENOrdering Facility: [facility] Address: [address] [place] [address] Result Comment: Cuto ff threshold at 50 ng/mL. Performed By: #### U TOX2 ####[facility] LABORATORYIA [id number] [place] [address] [place] Cocaine Ql (U) Negative Normal Negative [facility] Comment on above: Order Comment: Speci men Type: URINE SPECIMENOrdering Facility: [facility] Address: [address] [place] [address] Result Comment: Cuto ff threshold at 300 ng/mL. Performed By: #### U TOX2 ####[facility] [id number] [place] [address] [place] Ethanol (U) [Mass/Vol] <11 Normal <11 [facility] Comment on above: Order Comment: Speci men Type: URINE SPECIMENOrdering Facility: [facility] Address: [address] [place] [address] Performed By: #### U TOX2 ####[facility] [id number] [place] [address] [place] Opiates Screen Ql (U) Negative Normal Negative [facility] Comment on above: Order Comment: Speci men Type: URINE SPECIMENOrdering Facility: [facility] Address: [address] [place] [address] Result Comment: Cuto ff threshold at 300 ng/mL. Performed By: #### U TOX2 ####[facility] [id number] [place] [id number] [place] oxyCODONE cutoff Screen (U) [Mass/Vol] Negative Normal Negative [facility] Comment on above: Order Comment: Speci men Type: URINE SPECIMENOrdering Facility: [facility] Address: [address] [place] [address] Result Comment: Cuto ff threshold at 100 ng/mL. Performed By: #### U TOX2 ####[facility] LABORATORYIA [id number] [place] [address] [place] Phencyclidine Ql (U) Negative Normal Negative [facility] Comment on above: Order Comment: Speci men Type: URINE SPECIMENOrdering Facility: [facility] Address: [address] [place] [address] Result Comment: Cuto ff threshold at 25 ng/mL. Performed By: #### U TOX2 ####[facility] LABORATORYCLIA [id number] [place] [address] [place] Basic metabolic 2000 panelon 06-07-2023 Anion gap [Moles/Vol] 9 mmol/L Normal 9-18 [facility] Comment on above: Order Comment: Speci men Type: BLOOD SPECIMENOrdering Facility: [facility] Address: [address] [place] [address] Performed By: #### 2 4321-2 ####[facility] [id number] [place] [address] [place] Calcium [Mass/Vol] 8.7 mg/dL Normal 8.5-10.2 [facility] Comment on above: Order Comment: Speci men Type: BLOOD SPECIMENOrdering Facility: [facility] Address: [address] [place] [address] Performed By: #### 2 4321-2 ####[facility] [id number] [place] [address] [place] Chloride [Moles/Vol] 108 mmol/L High 97-105 [facility] Comment on above: Order Comment: Speci men Type: BLOOD SPECIMENOrdering Facility: [facility] Address: [address] [place] [address] Performed By: #### 2 4321-2 ####[facility] LABORATORYIA [id number] [place] [address] [place] CO2 [Moles/Vol] 23 mmol/L Normal 22-30 [facility] Comment on above: Order Comment: Speci men Type: BLOOD SPECIMENOrdering Facility: [facility] Address: [address] [place] [address] Performed By: #### 2 4321-2 ####[facility] LABORATORYCLIA [id number] [facility] [place] [address] [place] Creatinine [Mass/Vol] 0.68 mg/dL Normal 0.58-0.96 [facility] Comment on above: Order Comment: Lyssai men Type: BLOOD SPECIMENOrdering Facility: [facility] Address: [address] [place] [address] Performed By: #### 2 4321-2 ####[facility] LABORATORYIA [id number] [place] [address] [facility] Creatinine and Glomerular filtration rate.predicted panel (S/P/Bld) 117 mL/min/1.73m??? Normal >=60 [facility] Comment on above: Order Comment: Geraldo [facility] Type: BLOOD SPECIMENOrdering Facility: [facility] Address: [address] [place] [address] Result Comment: Jessica mated Glomerular Filtration Rate [...] actual GFR. Performed By: #### 2 4321-2 ####[facility] LABORATORYCLIA [id number] [place] [address] [place] Glucose [Mass/Vol] 98 mg/dL Normal 74-99 [facility] Comment on above: Order Comment: Geraldo [facility] Type: BLOOD SPECIMENOrdering Facility: [facility] Address: [address] [place] [address] Result Comment: The [place] Diabetes [employer] (ADA) provides guidance for cutoff [...] Standards of Medical Care in Diabetes 2016, [place] [employer]. Diabetes Care. 2016.39(Suppl 1). Performed By: #### 2 4321-2 ####[facility] [id number] [place] [address] [place] Potassium [Moles/Vol] 4.2 mmol/L Normal 3.7-5.1 [facility] Comment on above: Order Comment: Speci men Type: BLOOD SPECIMENOrdering Facility: [facility] Address: [address] [place] [address] Performed By: #### 2 4321-2 ####[facility] [id number] [place] [address] [place] Sodium [Moles/Vol] 140 mmol/L Normal 136-144 [facility] Comment on above: Order Comment: Speci men Type: BLOOD SPECIMENOrdering Facility: [facility] Address: [address] [place] [address] Performed By: #### 2 4321-2 ####[facility] [id number] [place] [address] [place] Urea nitrogen [Mass/Vol] 9 mg/dL Normal 7-21 [facility] Comment on above: Order Comment: Speci men Type: BLOOD SPECIMENOrdering Facility: [facility] Address: [address] [place] [address] Performed By: #### 2 4321-2 ####[facility] [id number] [place] [address] [place] CASE MGT INIT ASSESon 2023 [facility] CBC panel Auto (Bld)on 06-06 Erythrocyte distribution width (RBC) [Ratio] 13.7 % Normal 11.5-15.0 [facility] Comment on above: Order Comment: Speci men Type: BLOOD SPECIMENOrdering Facility: [facility] Address: [address] [place] [address] Performed By: #### 5 8410-2 ####[facility] LABORATORYCLIA [id number] [place], [place] [address] [place] [address] [place] Hematocrit (Bld) [Volume fraction] 32.6 % Low 36.0-46.0 [facility] Comment on above: Order Comment: Speci men Type: BLOOD SPECIMENOrdering Facility: [facility] Address: [address] [place] [address] Performed By: #### 5 8410-2 ####[facility] LABORATORYCLIA [id number] [place] Hemoglobin (Bld) [Mass/Vol] 10.8 g/dL Low 11.5-15.5 [facility] Comment on above: Order Comment: Speci men Type: BLOOD SPECIMENOrdering Facility: [facility] Address: [address] [place] [address] Performed By: #### 5 8410-2 ####[facility] LABORATORYIA [id number] [place] [address] [place] MCH (RBC) [Entitic mass] 29.9 pg Normal 26.0-34.0 [facility] Comment on above: Order Comment: Speci men Type: BLOOD SPECIMENOrdering Facility: [facility] Address: [address] [place] [address] Performed By: #### 5 8410-2 ####[facility] LABORATORYIA [id number] [place] [id number] [place] MCHC (RBC) [Mass/Vol] 33.1 g/dL Normal 30.5-36.0 [facility] Comment on above: Order Comment: Speci men Type: BLOOD SPECIMENOrdering Facility: [facility] Address: [address] [place] [address] Performed By: #### 5 8410-2 ####[facility] LABORATORYIA [id number] [place] [address] [place] MCV (RBC) [Entitic vol] 90.3 fL Normal 80.0-100.0 [facility] Comment on above: Order Comment: Speci men Type: BLOOD SPECIMENOrdering Facility: [facility] Address: [address] [place] [address] Performed By: #### 5 8410-2 ####[facility] [id number] [place] [address] [place] Nucleated RBC (Bld) [#/Vol] 10*3/uL Normal <0.01 [facility] Comment on above: Order Comment: Speci men Type: BLOOD SPECIMENOrdering Facility: [facility] Address: [address] [place] [address] Performed By: #### 5 8410-2 ####[facility] [id number] [place] [address] [place] Platelet mean volume (Bld) [Entitic vol] 10.5 fL Normal 9.0-12.7 [facility] Comment on above: Order Comment: Speci men Type: BLOOD SPECIMENOrdering Facility: [facility] Address: [address] [place] [address] Performed By: #### 5 8410-2 ####[facility] [id number] [place] [address] [place] Platelets (Bld) [#/Vol] 258 10*3/uL Normal 150-400 [facility] Comment on above: Order Comment: Speci men Type: BLOOD SPECIMENOrdering Facility: [facility] Address: [address] [place] [address] Performed By: #### 5 8410-2 ####[facility]ORY[facility] [id number] [place] [address] [place] RBC (Bld) [#/Vol] 3.61 10*6/uL Low 3.90-5.20 [facility] Comment on above: Order Comment: Speci men Type: BLOOD SPECIMENOrdering Facility: [facility] Address: [address] [place] [address] Performed By: #### 5 8410-2 ####[facility]ORATORYCLIA [id number] [facility] [place] [address] [place] WBC (Bld) [#/Vol] 3.65 10*3/uL Low 3.70-11.00 [facility] Comment on above: Order Comment: Speci men Type: BLOOD SPECIMENOrdering Facility: [facility] Address: [address] [place] [address] Performed By: #### 5 8410-2 ####[facility]ORY[facility] [id number] [place] [address] [place] CONSULTon 06-07-2023 CONSULT [facility] CONSULT Normal [facility] NUTRITIONon 06-07-2023 NUTRITION Normal [facility] CBC W Auto Differential pane l (Bld)on 06-06-2023 Basophils (Bld) [#/Vol] 0.05 10*3/uL Normal <0.11 [facility] Comment on above: Order Comment: Speci men Type: BLOOD SPECIMENOrdering Facility: [facility] Address: [address] [place] [address] Performed By: #### 5 7021-8 ####[facility] [id number] [place] [address] [place] Basophils/100 WBC (Bld) 1.0 % Normal [facility] Comment on above: Order Comment: Speci men Type: BLOOD SPECIMENOrdering Facility: [facility] Address: [address] [place] [address] Performed By: #### 5 7021-8 ####[facility]ATORYCLIA [id number] [place] [address] [place] Differential cell count method Nom (Bld) Auto Normal [facility] Comment on above: Order Comment: Speci men Type: BLOOD SPECIMENOrdering Facility: [facility] Address: [address] [place] [address] Performed By: #### 5 7021-8 ####[facility] [id number] [place] [address] [place] Eosinophils (Bld) [#/Vol] 0.11 10*3/uL Normal <0.46 [facility] Comment on above: Order Comment: Speci men Type: BLOOD SPECIMENOrdering Facility: [facility] Address: [address] [place] [address] Performed By: #### 5 7021-8 ####[facility]ORY[facility] [id number] [place] [id number] [place] Eosinophils/100 WBC (Bld) 2.2 % Normal [facility] Comment on above: Order Comment: Speci men Type: BLOOD SPECIMENOrdering Facility: [facility] Address: [address] [place] [address] Performed By: #### 5 7021-8 ####[facility] [id number] [place] [address] [place] Erythrocyte distribution width (RBC) [Ratio] 13.4 % Normal 11.5-15.0 [facility] Comment on above: Order Comment: Speci men Type: BLOOD SPECIMENOrdering Facility: [facility] Address: [address] [place] [address] Performed By: #### 5 7021-8 ####[facility] [id number] [place] [address] [place] Hematocrit (Bld) [Volume fraction] 35.9 % Low 36.0-46.0 [facility] Comment on above: Order Comment: Speci men Type: BLOOD SPECIMENOrdering Facility: [facility] Address: [address] [place] [address] Performed By: #### 5 7021-8 ####[facility] [id number] [place] [address] [place] Hemoglobin (Bld) [Mass/Vol] 12.2 g/dL Normal 11.5-15.5 [facility] Comment on above: Order Comment: Speci men Type: BLOOD SPECIMENOrdering Facility: [facility] Address: [address] [place] [address] Performed By: #### 5 7021-8 ####[facility]ATORYCLIA [id number] [facility] [place] [address] [place] Immature granulocytes (Bld) [#/Vol] 10*3/uL Normal <0.10 [facility] Comment on above: Order Comment: Speci men Type: BLOOD SPECIMENOrdering Facility: [facility] Address: [address] [place] [address] Performed By: #### 5 7021-8 ####[facility]ATORYCLIA [id number] [place] [address] [place] Immature granulocytes/100 WBC (Bld) 0.2 % Normal [facility] Comment on above: Order Comment: Speci men Type: BLOOD SPECIMENOrdering Facility: [facility] Address: [address] [place] [address] Performed By: #### 5 7021-8 ####[facility] [id number] [place] [address] [place] Lymphocytes (Bld) [#/Vol] 1.70 10*3/uL Normal 1.00-4.00 [facility] Comment on above: Order Comment: Speci men Type: BLOOD SPECIMENOrdering Facility: [facility] Address: [address] [place] [address] Performed By: #### 5 7021-8 ####[facility]ATORYCLIA [id number] [place] [address] [place] Lymphocytes/100 WBC (Bld) 33.3 % Normal [facility] Comment on above: Order Comment: Speci men Type: BLOOD SPECIMENOrdering Facility: [facility] Address: [address] [place] [address] Performed By: #### 5 7021-8 ####[facility]ORATORYCLIA [id number] [facility].[address] MCH (RBC) [Entitic mass] 30.1 pg Normal 26.0-34.0 [facility] Comment on above: Order Comment: Speci men Type: BLOOD SPECIMENOrdering Facility: [facility] Address: [address] [place] [address] Performed By: #### 5 7021-8 ####[facility]ORATORYCLIA [id number] [place] [id number] [place] MCHC (RBC) [Mass/Vol] 34.0 g/dL Normal 30.5-36.0 [facility] Comment on above: Order Comment: Speci men Type: BLOOD SPECIMENOrdering Facility: [facility] Address: [address] [place] [address] Performed By: #### 5 7021-8 ####[facility] [id number] [address] [place] MCV (RBC) [Entitic vol] 88.6 fL Normal 80.0-100.0 [facility] Comment on above: Order Comment: Speci men Type: BLOOD SPECIMENOrdering Facility: [facility] Address: [address] [place] [address] Performed By: #### 5 7021-8 ####[facility] [id number] [address] [facility] Monocytes (Bld) [#/Vol] 0.42 10*3/uL Normal <0.87 [facility] Comment on above: Order Comment: Speci men Type: BLOOD SPECIMENOrdering Facility: [facility] Address: [address] [place] [address] Performed By: #### 5 7021-8 ####[facility]ORYIA [id number] [place] [id number] [facility] Monocytes/100 WBC (Bld) 8.2 % Normal [facility] Comment on above: Order Comment: Speci men Type: BLOOD SPECIMENOrdering Facility: [facility] Address: [address] [place] [address] Performed By: #### 5 7021-8 ####[facility]ORATORYCLIA [id number] [place] [address] [place] Neutrophils (Bld) [#/Vol] 2.81 10*3/uL Normal 1.45-7.50 [facility] Comment on above: Order Comment: Speci men Type: BLOOD SPECIMENOrdering Facility: [facility] Address: [address] [place] [address] Performed By: #### 5 7021-8 ####[facility]ORATORYCLIA [id number] [place] [address] [place] Neutrophils/100 WBC (Bld) 55.1 % Normal [facility] Comment on above: Order Comment: Speci men Type: BLOOD SPECIMENOrdering Facility: [facility] Address: [address] [place] [address] Performed By: #### 5 7021-8 ####[facility] [id number] [place] [id number] [place] Nucleated RBC (Bld) [#/Vol] 10*3/uL Normal <0.01 [facility] Comment on above: Order Comment: Speci men Type: BLOOD SPECIMENOrdering Facility: [facility] Address: [address] [place] [address] Performed By: #### 5 7021-8 ####[facility] [id number] [place] [address] [place] Nucleated RBC/100 WBC (Bld) [Ratio] 0.0 /100 WBC Normal [facility] Comment on above: Order Comment: Speci men Type: BLOOD SPECIMENOrdering Facility: [facility] Address: [address] [place] [address] Performed By: #### 5 7021-8 ####[facility] [id number] [place] [address] [place] Platelet mean volume (Bld) [Entitic vol] 10.3 fL Normal 9.0-12.7 [facility] Comment on above: Order Comment: Speci men Type: BLOOD SPECIMENOrdering Facility: [facility] Address: [address] [place] [address] Performed By: #### 5 7021-8 ####[facility] [id number] [place] [address] [facility] Platelets (Bld) [#/Vol] 323 10*3/uL Normal 150-400 [facility] Comment on above: Order Comment: Speci men Type: BLOOD SPECIMENOrdering Facility: [facility] Address: [address] [place] [address] Performed By: #### 5 7021-8 ####[facility] [id number] [place] [id number] [place] RBC (Bld) [#/Vol] 4.05 10*6/uL Normal 3.90-5.20 [facility] Comment on above: Order Comment: Speci men Type: BLOOD SPECIMENOrdering Facility: [facility] Address: [address] [place] [address] Performed By: #### 5 7021-8 ####[facility] [id number] [address] [place] WBC (Bld) [#/Vol] 5.10 10*3/uL Normal 3.70-11.00 [facility] Comment on above: Order Comment: Speci men Type: BLOOD SPECIMENOrdering Facility: [facility] Address: [address] [place] [address] Performed By: #### 5 7021-8 ####[facility] [id number] [place] [address] [place] CT ABD/PEL W IVCONon 024 CT ABD/PEL W IVCON Normal [facility] Comprehensive metabolic 2000 panelon 06-06-2023 Albumin [Mass/Vol] 4.3 g/dL Normal 3.9-4.9 [facility] Comment on above: Order Comment: Speci men Type: BLOOD SPECIMENOrdering Facility: [facility] Address: [address] [place] [address] Performed By: #### 2 4323-8, 3040-3, ####[facility]ORATORYCLIA [id number] [facility] [place] [address] [place] ALP [Catalytic activity/Vol] 62 U/L Normal 34-123 [facility] Comment on above: Order Comment: Speci men Type: BLOOD SPECIMENOrdering Facility: [facility] Address: [address] [place] [address] Performed By: #### 2 4323-8, 3040-3, ####[facility]ATORYCLIA [id number] [place] [address] [place] ALT [Catalytic activity/Vol] 16 U/L Normal 7-38 [facility] Comment on above: Order Comment: Speci men Type: BLOOD SPECIMENOrdering Facility: [facility] Address: [address] [place] [address] Performed By: #### 2 4323-8, 3039-3, ####[facility]ITALCL[facility] [id number] [place] [address] [place] Anion gap [Moles/Vol] 10 mmol/L Normal 9-18 [facility] Comment on above: Order Comment: Speci men Type: BLOOD SPECIMENOrdering Facility: [facility] Address: [address] [place] [address] Performed By: #### 2 4323-8, 0-3, ####[facility]ORYIA [id number] [facility] [place] [address] [place] AST [Catalytic activity/Vol] 28 U/L Normal 13-35 [facility] Comment on above: Order Comment: Speci men Type: BLOOD SPECIMENOrdering Facility: [facility] Address: [facility] [place] [address] Performed By: #### 2 4323-8, 3040-3, ####[facility]ATORYCLIA [id number] [facility] [place] [address] [place] Bilirubin [Mass/Vol] 0.3 mg/dL Normal 0.2-1.3 [facility] Comment on above: Order Comment: Speci men Type: BLOOD SPECIMENOrdering Facility: [facility] Address: [facility] [place] [address] Performed By: #### 2 4323-8, 0-3, ####[facility]ATORYCLIA [id number] [place] [address] [place] Calcium [Mass/Vol] 9.1 mg/dL Normal 8.5-10.2 [facility] Comment on above: Order Comment: Speci men Type: BLOOD SPECIMENOrdering Facility: [facility] Address: [address] [place], [place] [address] [address] Performed By: #### 2 4323-8, 3, ####[facility]ORATORYCLIA [id number] [place] [address] [place] Chloride [Moles/Vol] 103 mmol/L Normal 97-105 [facility] Comment on above: Order Comment: Speci men Type: BLOOD SPECIMENOrdering Facility: [facility] Address: [facility] [place] [address] Performed By: #### 2 4323-8, 3, ####[facility]ORYIA [id number] [place] [address] [place] CO2 [Moles/Vol] 23 mmol/L Normal 22-30 [facility] Comment on above: Order Comment: Speci men Type: BLOOD SPECIMENOrdering Facility: [facility] Address: [address] [place] [address] Performed By: #### 2 4323-8, 3, ####[facility]ORYIA [id number] [place] [address] [place] Creatinine [Mass/Vol] 0.74 mg/dL Normal 0.58-0.96 [facility] Comment on above: Order Comment: Speci men Type: BLOOD SPECIMENOrdering Facility: [facility] Address: [address] [place] [address] Performed By: #### 2 4323-8, 3040-3, 12934-7 ####[facility]ORATORYCLIA [id number] [facility] [place] [address] [place] Creatinine and Glomerular filtration rate.predicted panel (S/P/Bld) 109 mL/min/1.73m??? Normal >=60 [facility] Comment on above: Order Comment: Lyssai men Type: BLOOD SPECIMENOrdering Facility: [facility] Address: [address] [place] [id number] Result Comment: Jessica mated Glomerular Filtration Rate [...] GFR. Performed By: #### 2 4323-8, 3040-3, ####[facility]ORATORYCLIA [id number] [facility] [place] [address] [place] Glucose [Mass/Vol] 91 mg/dL Normal 74-99 [facility] Comment on above: Order Comment: Lyssamichael elida Type: BLOOD SPECIMENOrdering Facility: [facility] Address: [address] [place], [place] [address] Result Comment: The [place] [employer] (ADA) provides guidance for cutoff [...] Standards of Medical Care in Diabetes 2016, [place] [employer]. Diabetes Care. 2016.39(Suppl 1). Performed By: #### 2 4323-8, 3040-3, ####[facility]ATORYCLIA [id number] [place] [address] [place] Potassium [Moles/Vol] 4.0 mmol/L Normal 3.7-5.1 [facility] Comment on above: Order Comment: Speci men Type: BLOOD SPECIMENOrdering Facility: [facility] Address: [address] [place] [address] Performed By: #### 2 4323-8, 0-3, ####[facility]ITALCLIA [id number] [place] [address] [place] Protein [Mass/Vol] 7.4 g/dL Normal 6.3-8.0 [facility] Comment on above: Order Comment: Speci men Type: BLOOD SPECIMENOrdering Facility: [facility] Address: [address] [place] [address] Performed By: #### 2 4323-8, 0-3, ####[facility] [id number] [place] [address] [place] Sodium [Moles/Vol] 136 mmol/L Normal 136-144 [facility] Comment on above: Order Comment: Speci men Type: BLOOD SPECIMENOrdering Facility: [facility] Address: [address] [place] [address] Performed By: #### 2 4323-8, 0-3, ####[facility] [id number] [place] [address] [place] Urea nitrogen [Mass/Vol] 14 mg/dL Normal 7-21 [facility] Comment on above: Order Comment: Speci men Type: BLOOD SPECIMENOrdering Facility: [facility] Address: [address] [place] [address] Performed By: #### 2 4323-8, 0-3, ####[facility]ATORYCLIA [id number] [place] [address] [place] ECG COMPLETEon 06-06-2023 ECG COMPLETE Normal [facility] ED NOTEon 06-06-2023 ED NOTE Normal [facility] ED NOTE Normal [facility] ED PROV NOTEon 06-06-2023 ED PROV NOTE Normal [facility] l FLUABV+SARS-CoV-2+RSV Pnl Re sp HANK+probeon 06-06-2023 FLUABV+SARS-CoV-2+R SV Pnl Resp HANK+probe Normal [facility] Comment on above: Performed By: #### 9 5941-1 ####[facility]ORYIA [id number] [place] [address] [place] HISTORY PHYSICALon HISTORY PHYSICAL Normal [facility] Lipase SerPl-cCncon 06-06-19 24 Lipase [Catalytic activity/Vol] 75 U/L High 16-61 [facility] Comment on above: Order Comment: Speci men Type: BLOOD SPECIMENOrdering Facility: [facility] Address: [address] [place] [address] Performed By: #### 2 4323-8, 0-3, ####[facility] [id number] [place] [id number] [place] Magnesium SerPl-mCncon 06-05 Magnesium [Mass/Vol] 2.1 mg/dL Normal 1.7-2.3 [facility] Comment on above: Order Comment: Speci men Type: BLOOD SPECIMENOrdering Facility: [facility] Address: [address] [place] [address] Performed By: #### 2 4323-8, 0-3, ####[facility] [id number] [place] [id number] [facility] Urinalysis complete panel (U )on 06-06-2023 Bilirubin Ql (U) Negative Normal Negative [facility] Comment on above: Order Comment: Speci men Type: URINE SPECIMENOrdering Facility: [facility] Address: [address] [place] [address] Performed By: #### 2 4356-8 ####[facility] [id number] [place] [address] [place] Clarity (Unsp spec) Clear Normal Clear [facility] Comment on above: Order Comment: Speci men Type: URINE SPECIMENOrdering Facility: [facility] Address: [address] [place] [address] Performed By: #### 2 4356-8 ####[facility] [id number] [place] [address] [place] Color (U) Light Yellow Normal yellow [facility] l Comment on above: Order Comment: Speci men Type: URINE SPECIMENOrdering Facility: [facility] Address: [address] [place] [address] Performed By: #### 2 4356-8 ####[facility] [id number] [place] [id number] [place] Epithelial cells LM.HPF (Urine sed) [#/Area] Few Normal [facility] Comment on above: Order Comment: Speci men Type: URINE SPECIMENOrdering Facility: [facility] Address: [address] [place] [address] Performed By: #### 2 4356-8 ####[facility] [id number] [place] [address] [place] Glucose Test strip (U) [Mass/Vol] Negative Normal Trace, Negative [facility] Comment on above: Order Comment: Speci men Type: URINE SPECIMENOrdering Facility: [facility] Address: [address] [place] [address] Performed By: #### 2 4356-8 ####[facility] [id number] [place] [address] [place] Hemoglobin Ql (U) Negative Normal Negative, Trace [facility] Comment on above: Order Comment: Speci men Type: URINE SPECIMENOrdering Facility: [facility] Address: [address] [place] [address] Performed By: #### 2 4356-8 ####[facility] [id number] [place] [address] [place] Ketones Ql (U) Negative Normal Negative, Trace [facility] Comment on above: Order Comment: Speci men Type: URINE SPECIMENOrdering Facility: [facility] Address: [address] [place] [address] Performed By: #### 2 4356-8 ####[facility] [id number] [place], [place] [id number] [address] [place] Leukocyte esterase Test strip Ql (U) Negative Normal Negative, 25 Patito/uL [facility] Comment on above: Order Comment: Speci men Type: URINE SPECIMENOrdering Facility: [facility] Address: [address] [place] [address] Performed By: #### 2 4356-8 ####[facility] [id number] [place] [address] [place] Nitrite Ql (U) Negative Normal Negative [facility] Comment on above: Order Comment: Speci men Type: URINE SPECIMENOrdering Facility: [facility] Address: [address] [place] [address] Performed By: #### 2 4356-8 ####[facility] [id number] [place] [address] [place] pH (U) 7.0 [pH] Normal 5.0-8.0 [facility] Comment on above: Order Comment: Speci men Type: URINE SPECIMENOrdering Facility: [facility] Address: [address] [place] [address] Performed By: #### 2 4356-8 ####[facility] [id number] [place] [id number] [place] Protein (U) [Mass/Vol] Trace Normal Trace, Negative [facility] Comment on above: Order Comment: Speci men Type: URINE SPECIMENOrdering Facility: [facility] Address: [address] [place] [address] Performed By: #### 2 4356-8 ####[facility] [id number] [place] [address] [place] RBC LM.HPF (Urine sed) [#/Area] 3-5 /HPF Abnormal 0-3 /HPF [facility] Comment on above: Order Comment: Speci men Type: URINE SPECIMENOrdering Facility: [facility] Address: [address] [place] [address] Performed By: #### 2 4356-8 ####[facility] [id number] [place] [address] [place] Specific gravity (U) [Rel density] 1.024 Normal 1.005-1.030 [facility] Comment on above: Order Comment: Speci men Type: URINE SPECIMENOrdering Facility: [facility] Address: [address] [place] [address] Performed By: #### 2 4356-8 ####[facility] [id number] [place] [id number] [facility] [place] Urobilinogen Ql (U) Normal Normal Normal [facility] Comment on above: Order Comment: Speci men Type: URINE SPECIMENOrdering Facility: [facility] Address: [address] [place] [address] Performed By: #### 2 4356-8 ####[facility] [id number] [place] [id number] [place] WBC LM.HPF (Urine sed) [#/Area] 0-5 /HPF Normal 0-5 /HPF [facility] Comment on above: Order Comment: Speci men Type: URINE SPECIMENOrdering Facility: [facility] Address: [address] [place] [address] Performed By: #### 2 4356-8 ####[facility] [id number] [place] [address] [place] ED Note-Physicianon 06-04-19 ED Note-Physician [id number] #1.00TIFF Normal [facility] Ambulatory Visit Summaryon 0 06-02-2023 Ambulatory Visit Summary Normal [address] [place] [address]- \.br\ Medications\.br\ What How Much When Why [...] for choosing us for your care.\.br\ \.br\ [facility] Family Medicine Office/Clini c Noteon 06-02-2023 Family Medicine Office/Clinic Note Normal [facility] Comment on above: Result Comment: Elec tronically Signed By: Jaquan Paula\.br\Date and Time Signed: 06/02/23 12:30 EDT Provider Letteron 06-02-2023 Provider Letter Normal [facility] Provider Letter Normal [facility] Population Healthon 05-31-19 Population Health Normal [facility] Alanine aminotransferase [En zymatic activity/volume] in Serum or PlasmaOrdered By: Gabino Parker on 05-30-2023 ALT [Catalytic activity/Vol] 11 U/L Normal 7-52 [facility] Comment on above: Performed By: #### M G, LIPASE, CMP, CBC, HEPATIC #### [facility] [address] [place] [address] Albumin [Mass/volume] in Ser um or Plasma by Bromocresol green (BCG) dye binding methoOrdered By: Gabino Parker on 05-30-2023 Albumin BCG dye [Mass/Vol] 4.1 g/dL 3.5-5.7 [facility] Alkaline phosphatase [Enzyma tic activity/volume] in Serum or PlasmaOrdered By: Gabino Parker on 05-30-2023 ALP [Catalytic activity/Vol] 56 U/L Normal 34-104 [facility] Comment on above: Performed By: #### M G, LIPASE, CMP, CBC, HEPATIC #### [address] Aspartate aminotransferase [ Enzymatic activity/volume] in Serum or PlasmaOrdered By: Gabino Parker on 05-30-2023 AST [Catalytic activity/Vol] 22 U/L Normal 13-39 [facility] Comment on above: Performed By: #### M G, LIPASE, CMP, CBC, HEPATIC #### [facility] [address] [place] [address] Automated basophil %Ordered By: Gabino Parker on 05-30-2023 Basophils/100 WBC (Bld) 0.4 % Normal . [facility] Comment on above: Performed By: #### M G, LIPASE, CMP, CBC, HEPATIC #### [address] Automated basophil countOrde red By: Gabino Parker on 05-30-2023 Basophils (Bld) [#/Vol] 0.0 10*3/uL Normal 0.0-0.2 [facility] Comment on above: Result Comment: PERF ORMED BY: [place] [address] PATHOLOGIST MOLDER OPERATOR BAUTISTA BAKER M.D. Performed By: #### M G, LIPASE, CMP, CBC, HEPATIC #### [place] [address] [address] Automated blood monocyte cou ntOrdered By: Gabino Parker on 05-30-2023 Monocytes (Bld) [#/Vol] 0.4 10*3/uL Normal 0.0-0.8 [facility] Comment on above: Performed By: #### M G, LIPASE, CMP, CBC, HEPATIC #### [facility] [address] [place] [address] Automated eosinophil %Ordere d By: Gabino Parker on 05-30-2023 Eosinophils/100 WBC (Bld) 0.4 % Normal . [facility] Comment on above: Performed By: #### M G, LIPASE, CMP, CBC, HEPATIC #### [address] Automated eosinophil countOr dered By: Gabino Parker on 05-30-2023 Eosinophils (Bld) [#/Vol] 0.0 10*3/uL Normal 0.0-0.45 [facility] Comment on above: Performed By: #### M G, LIPASE, CMP, CBC, HEPATIC #### [address] Automated erythrocytes count in urine sediment (number/area)Ordered By: Gabino Parker on 05-30-2023 RBC Auto (Urine sed) [#/Area] 3-4 [HPF] 0-4 [facility] Automated leukocytes count i n urine sediment (number/area)Ordered By: Gabino Parker on 05-30-2023 WBC Auto (Urine sed) [#/Area] 5-9 [HPF] High 0-4 [facility] Automated monocyte %Ordered By: Gabino Parker on 05-30-2023 Monocytes/100 WBC (Bld) 4.5 % Normal . [facility] Comment on above: Performed By: #### M G, LIPASE, CMP, CBC, HEPATIC #### [facility] [address] [place] [address] Automated neutrophil %Ordere d By: Gabino Parker on 05-30-2023 Neutrophils/100 WBC (Bld) 79.0 % Normal . [facility] Comment on above: Performed By: #### M G, LIPASE, CMP, CBC, HEPATIC #### [facility] [address] Automated urine color determ inationOrdered By: Gabino Parker on 05-30-2023 Color (U) Yellow Normal Yellow [facility] Comment on above: Order Comment: Name Collection Type:: Clean-Voided Midstream Performed By: #### A DDONUAPLUS, UHCG, CUU #### [facility] [address] [place] [address] Bilirubin Test strip Ql (U)O rdered By: Gabino Parker on 05-30-2023 Bilirubin Ql (U) Negative Negative [facility] Bilirubin.direct [Mass/volum e] in Serum or PlasmaOrdered By: Gabino Parker on 05-30-2023 Bilirubin.direct [Mass/Vol] 0.10 mg/dL 0.03-0.18 [facility] Bilirubin.total [Mass/volume ] in Serum or PlasmaOrdered By: Gabino Parker on 05-30-2023 Bilirubin [Mass/Vol] 0.4 mg/dL Normal 0.3-1.0 [facility] Comment on above: Performed By: #### M G, LIPASE, CMP, CBC, HEPATIC #### [facility] [address] [place] [address] CNPNon 05-30-2023 CNPN Normal [facility] CT abdomen pelvis w conon CT abdomen pelvis w con [facility] [place] [address] CT Scan Report Signed Patient: Abbey Garcia MR#: [id number] : 1990 Acct:[id number] Age/Sex: 33 / F ADM Date: 05/30/23 Loc: ER Room: Type: [facility] ER Attending Dr: Copies to: Gabino [...] Melisa Hutchinson M.D.05/30/2023 5:49 PM Dictation Location: [place] [address] Transcribed By: [facility] 05/30/231748 Dictated By: Melisa Hutchinson II, MD 05/30/231739 Signed By: 05/30/231748 Normal [facility] Calcium [Mass/volume] in Ser um or PlasmaOrdered By: Gabino Parker on 05-30-2023 Calcium [Mass/Vol] 9.3 mg/dL Normal 8.6-10.3 [facility] Comment on above: Performed By: #### M G, LIPASE, CMP, CBC, HEPATIC #### [address] Carbon dioxide, total [Moles /volume] in Serum or PlasmaOrdered By: Gabino Parker on 05-30-2023 CO2 [Moles/Vol] 27.7 mmol/L Normal 21.0-31.[address] [facility] Comment on above: Performed By: #### M G, LIPASE, CMP, CBC, HEPATIC #### [address] Chloride [Moles/volume] in S elder or PlasmaOrdered By: Gabino Parker on 05-30-2023 Chloride [Moles/Vol] 103 mmol/L Normal 98-107 [facility] Comment on above: Performed By: #### M G, LIPASE, CMP, CBC, HEPATIC #### [address] Complete Blood Count Auto Di ffon 05-30-2023 Mean Corpuscular HGB Conc 33.8 g/dL Normal 32.0-35.0 [facility] Comment on above: Performed By: #### M G, LIPASE, CMP, CBC, HEPATIC #### [address] Monocytes/100 WBC (Bld) 16.47 % Normal 0.00-20.00 [facility] Comment on above: Performed By: #### M G, LIPASE, CMP, CBC, HEPATIC #### [address] NRBC% 0.1 /100{WBC} Normal 0-0.5 [facility] Comment on above: Performed By: #### M G, LIPASE, CMP, CBC, HEPATIC #### [address] Comprehensive Metabolic Pane nestor 05-30-2023 Albumin [Mass/Vol] 4.1 g/dL Normal 3.5-5.7 [facility] Comment on above: Performed By: #### M G, LIPASE, CMP, CBC, HEPATIC #### [address] Creatinine Clr Calc Pharmacy 118.42 Normal [facility] Comment on above: Performed By: #### M G, LIPASE, CMP, CBC, HEPATIC #### [place] [address] [place] GFR/1.73 sq M.predicted MDRD (S/P/Bld) [Vol rate/Area] mL/min/{1.73_m2} Normal [facility] Comment on above: Performed By: #### M G, LIPASE, CMP, CBC, HEPATIC #### [address] Creatinine [Mass/volume] in Serum or PlasmaOrdered By: Gabino Parker on 05-30-2023 Creatinine [Mass/Vol] 0.70 mg/dL Normal 0.60-1.20 [facility] Comment on above: Performed By: #### M G, LIPASE, CMP, CBC, HEPATIC #### [place] [address] [place] Dipstick and Microscopicon 0 05-30-2023 Appearance (U) Clear Normal Clear [facility] Comment on above: Order Comment: Name Collection Type:: Clean-Voided Midstream Performed By: #### A DDONUAPLUS, UHCG, CUU #### [place] [address] [place] Bacteria,Urine None Seen Normal None Seen [facility] Comment on above: Order Comment: Name Collection Type:: Clean-Voided Midstream Performed By: #### A DDONUAPLUS, UHCG, CUU #### [place] [address] [place] Bilirubin,Urine Negative Normal Negative [facility] Comment on above: Order Comment: Name Collection Type:: Clean-Voided Midstream Performed By: #### A DDONUAPLUS, UHCG, CUU #### [place] [address] [place] Glucose Ql (U) Normal Normal Normal [facility] Comment on above: Order Comment: Name Collection Type:: Clean-Voided Midstream Performed By: #### A DDONUAPLUS, UHCG, CUU #### [facility] [address] [place] [address] [place] Hyaline Casts,Urine 0-8 Normal 0-8 [facility] Comment on above: Order Comment: Name Collection Type:: Clean-Voided Midstream Performed By: #### A DDONUAPLUS, UHCG, CUU #### [place] [address] [place] Ketones Ql (U) Negative Normal Negative [facility] Comment on above: Order Comment: Name Collection Type:: Clean-Voided Midstream Performed By: #### A DDONUAPLUS, UHCG, CUU #### [place] [address] [place] Leukocyte esterase Test strip Ql (U) 1+ High Negative [facility] Comment on above: Order Comment: Name Collection Type:: Clean-Voided Midstream Performed By: #### A DDONUAPLUS, UHCG, CUU #### [place] [address] [place] Nitrite,Urine Negative Normal Negative [facility] Comment on above: Order Comment: Name Collection Type:: Clean-Voided Midstream Performed By: #### A DDONUAPLUS, UHCG, CUU #### [place] [address] [place] Occult Blood,Urine Negative Normal Negative [facility] Comment on above: Order Comment: Name Collection Type:: Clean-Voided Midstream Performed By: #### A DDONUAPLUS, UHCG, CUU #### [place] [address] [place] Protein,Urine Negative Normal Negative [facility] Comment on above: Order Comment: Name Collection Type:: Clean-Voided Midstream Performed By: #### A DDONUAPLUS, UHCG, CUU #### [place] [address] [place] RBC,Urine 3-4 Normal 0-4 [facility] Comment on above: Order Comment: Name Collection Type:: Clean-Voided Midstream Performed By: #### A DDONUAPLUS, UHCG, CUU #### [address] Specificy [place],Urine 1.011 Normal 1.001-1.030 [facility] Comment on above: Order Comment: Name Collection Type:: Clean-Voided Midstream Performed By: #### A DDONUAPLUS, UHCG, CUU #### [address] Squamous Epithelial Cell,Urine 0-1 Normal 0-2 [facility] Comment on above: Order Comment: Name Collection Type:: Clean-Voided Midstream Performed By: #### A DDONUAPLUS, UHCG, CUU #### [address] Urobilinogen,Urine Normal Normal Normal [facility] Comment on above: Order Comment: Name Collection Type:: Clean-Voided Midstream Performed By: #### A DDONUAPLUS, UHCG, CUU #### [address] WBC,Urine 5-9 High 0-4 [facility] Comment on above: Order Comment: Name Collection Type:: Clean-Voided Midstream Performed By: #### A DDONUAPLUS, UHCG, CUU #### [address] Erythrocyte distribution wid th [Ratio] by Automated countOrdered By: Gabino Parker on 05-30-2023 Erythrocyte distribution width (RBC) [Ratio] 15.5 % High 11.9-15.3 [facility] Comment on above: Performed By: #### M G, LIPASE, CMP, CBC, HEPATIC #### [address] Erythrocytes [#/volume] in B lood by Automated countOrdered By: Gabino Parker on 05-30-2023 RBC (Bld) [#/Vol] 3.86 10*6/uL Normal 3.60-5.00 [facility] Comment on above: Performed By: #### M G, LIPASE, CMP, CBC, HEPATIC #### [facility] [address] [place] [address] [place] Glucose [Mass/volume] in Ser um or PlasmaOrdered By: Gabino Parker on 05-30-2023 Glucose [Mass/Vol] 81 mg/dL Normal 70-100 [facility] Comment on above: ADA recommended refe rence rangeRandom Glucose Reference Range is dependent on time and content of last meal. Glucose of more than 200 mg/dL in a nonstressed, ambulatory subject supports the diagnosis of Diabetes Mellitus. Result Comment: [place] om Glucose Reference Range is dependent on time and content of last meal. Glucose of more than 200 mg/dL in a nonstressed, ambulatory subject supports the diagnosis of Diabetes Mellitus. ADA recommended reference range Performed By: #### M G, LIPASE, CMP, CBC, HEPATIC #### [facility] [address] HCG ( test) [place].rapi d Ql (U)Ordered By: Gabino Parker on 05-30-2023 HCG ( test) Ql (U) Negative [facility] HCG,Urineon 05-30-2023 Beta HCG ( test) Ql (U) Negative Normal [facility] Comment on above: Order Comment: Name Collection Type:: Clean-Voided Midstream Result Comment: PERF ORMED BY: [place] [address] PATHOLOGIST MOLDER OPERATOR BAUTISTA BAKER M.D. Performed By: #### A DDONUAPLUS, UHCG, CUU #### [facility] [address] [place] [address] [place] Hematocrit [Volume Fraction] of Blood by Automated countOrdered By: Gabino Parker on 05-30-2023 Hematocrit (Bld) [Volume fraction] 34.9 % Normal 34.0-46.4 [facility] Comment on above: Performed By: #### M G, LIPASE, CMP, CBC, HEPATIC #### [facility] [address] [place] [id number] [place] Hemoglobin [Mass/volume] in BloodOrdered By: Gabino Parker on 05-30-2023 Hemoglobin (Bld) [Mass/Vol] 11.8 g/dL Normal 11.8-15.4 [facility] Comment on above: Performed By: #### M G, LIPASE, CMP, CBC, HEPATIC #### [facility] [address] Hepatic Panelon 05-30-2023 Bilirubin,Indirect 0.3 mg/dL Normal [facility] Comment on above: Performed By: #### M G, LIPASE, CMP, CBC, HEPATIC #### [facility] [address] Bilirubin.indirect [Mass/Vol] 0.10 mg/dL Normal 0.03-0.18 [facility] Comment on above: Performed By: #### M G, LIPASE, CMP, CBC, HEPATIC #### [address] Ketones Auto test strip (U) [Mass/Vol]Ordered By: Gabino Parker on 05-30-2023 Ketones (U) [Mass/Vol] Negative Negative [facility] Laboratory - UrinalysisOrder ed By: Gabino Parker on 05-30-2023 Hyaline casts LM Ql (Urine sed) 0-8 [LPF] 0-8 [facility] Leukocytes [#/volume] correc darvin for nucleated erythrocytes in Blood by Automated counOrdered By: Gabino Parker on 05-30-2023 WBC corrected for nucl RBC Auto (Bld) [#/Vol] 8.8 10*3/uL 3.8-11.6 [facility] Leukocytes [#/volume] in Blo od by Automated countOrdered By: Gabino Parker on 05-30-2023 WBC (Bld) [#/Vol] 8.8 10*3/uL Normal 3.8-11.6 [facility] Comment on above: Performed By: #### M G, LIPASE, CMP, CBC, HEPATIC #### [facility] [address] [place] [address] Lipase [Enzymatic activity/v olume] in Serum or PlasmaOrdered By: Gabino Parker on 05-30-2023 Lipase [Catalytic activity/Vol] 37.0 U/L Normal 11.0-82.0 [facility] Comment on above: Result Comment: PERF ORMED BY: [place] [address] PATHOLOGIST MOLDER OPERATOR BAUTISTA BAKER M.D. Performed By: #### M G, LIPASE, CMP, CBC, HEPATIC #### [facility] [address] [place] [address] Lymphocytes [#/volume] in Bl ood by Automated countOrdered By: Gabino Parker on 05-30-2023 Lymphocytes (Bld) [#/Vol] 1.4 10*3/uL Normal 1.00-4.8 [facility] Comment on above: Performed By: #### M G, LIPASE, CMP, CBC, HEPATIC #### [facility] [address] [place] [address] Lymphocytes/100 leukocytes i n Blood by Automated countOrdered By: Gabino Parker on 05-30-2023 Lymphocytes/100 WBC (Bld) 15.7 % Normal . [facility] Comment on above: Performed By: #### M G, LIPASE, CMP, CBC, HEPATIC #### [facility] [address] [place] [address] MCH [Entitic mass] by Automa darvin countOrdered By: Gabino Parker on 05-30-2023 MCH (RBC) [Entitic mass] 30.5 pg Normal 24.7-34.3 [facility] Comment on above: Performed By: #### M G, LIPASE, CMP, CBC, HEPATIC #### [facility] [address] [place] [address] MCHC Auto (RBC) [Mass/Vol]Or dered By: Gabino Parker on 05-30-2023 MCHC (RBC) [Mass/Vol] 33.8 g/dL 32.0-35.0 [facility] MCV [Entitic volume] by Auto mated countOrdered By: Gabino Parker on 05-30-2023 MCV (RBC) [Entitic vol] 90.3 fL Normal 80-100 [facility] Comment on above: Performed By: #### M G, LIPASE, CMP, CBC, HEPATIC #### [facility] [address] [place] [address] Magnesium [Mass/volume] in S elder or PlasmaOrdered By: Gabino Parker on 05-30-2023 Magnesium [Mass/Vol] 2.1 mg/dL Normal 1.9-2.7 [facility] Comment on above: Performed By: #### M G, LIPASE, CMP, CBC, HEPATIC #### [facility] [address] [place] [address] Monocyte distribution width [Entitic volume] in Blood by AutomatedOrdered By: Gabino Parker on 05-30-2023 Monocyte distribution width Auto (Bld) [Entitic vol] 16.47 % 0.00-20.00 [facility] Neutrophils [#/volume] in Bl ood by Automated countOrdered By: Gabino Parker on 05-30-2023 Neutrophils (Bld) [#/Vol] 6.9 10*3/uL Normal 1.8-7.7 [facility] Comment on above: Performed By: #### M G, LIPASE, CMP, CBC, HEPATIC #### [facility] [address] [place] [address] Nitrite Test strip Ql (U)Ord ered By: Gabino Parker on 05-30-2023 Nitrite Ql (U) Negative Negative [facility] No Panel InformationOrdered By: Gabino Parker on 05-30-2023 Estimated GFR (CKD-EPI) > 60.0 mL/Min [facility] Creatinine Clearance (Chem 118.42 [facility] Nucleated erythrocytes [Pres ence] in Blood by Automated countOrdered By: Gabino Parker on 05-30-2023 Nucleated RBC Auto Ql (Bld) 0.1 /100{WBC} 0-0.5 [facility] Platelet mean volume [Entiti c volume] in Blood by Automated countOrdered By: Gabino Parker on 05-30-2023 Platelet mean volume (Bld) [Entitic vol] 9.5 fL Normal 6.3-10.7 [facility] Comment on above: Performed By: #### M G, LIPASE, CMP, CBC, HEPATIC #### [address] Platelets [#/volume] in Bloo d by Automated countOrdered By: Gabino Parker on 05-30-2023 Platelets (Bld) [#/Vol] 270 10*3/uL Normal 150-450 [facility] Comment on above: Performed By: #### M G, LIPASE, CMP, CBC, HEPATIC #### [address] Potassium [Moles/volume] in Serum or PlasmaOrdered By: Gabino Parker on 05-30-2023 Potassium [Moles/Vol] 4.0 mmol/L Normal 3.5-5.1 [facility] Comment on above: Performed By: #### M G, LIPASE, CMP, CBC, HEPATIC #### [address] Protein Auto test strip (U) [Mass/Vol]Ordered By: Gabino Parker on 05-30-2023 Protein (U) [Mass/Vol] Negative Negative [facility] Protein [Mass/volume] in Ser um or PlasmaOrdered By: Gabino Parker on 05-30-2023 Protein [Mass/Vol] 7.2 g/dL Normal 6.4-8.9 [facility] Comment on above: Performed By: #### M G, LIPASE, CMP, CBC, HEPATIC #### [address] Serum globulin measurement b y calculation (mass/volume)Ordered By: Gabino Parker on 05-30-2023 Globulin (S) [Mass/Vol] 3.1 g/dL Normal [facility] Comment on above: Performed By: #### M G, LIPASE, CMP, CBC, HEPATIC #### [address] Serum or plasma albumin/glob ulin mass ratioOrdered By: Gabino Parker on 05-30-2023 Albumin/Globulin [Mass ratio] 1.3 {ratio} [facility] Comment on above: Performed By: #### M G, LIPASE, CMP, CBC, HEPATIC #### [address] Serum or plasma anion gap de terminationOrdered By: Gabino Parker on 05-30-2023 Anion gap [Moles/Vol] 12.3 mmol/L Normal 6.0-15.0 [facility] Comment on above: Performed By: #### M G, LIPASE, CMP, CBC, HEPATIC #### [address] Serum or plasma non-glucuron idated bilirubin measurement (mass/volume)Ordered By: Gabino Parker on 05-30-2023 Bilirubin.indirect [Mass/Vol] 0.3 mg/dL [facility] Sodium [Moles/volume] in Ser um or PlasmaOrdered By: Gabino Parker on 05-30-2023 Sodium [Moles/Vol] 139 mmol/L Normal 136-145 [facility] Comment on above: Performed By: #### M G, LIPASE, CMP, CBC, HEPATIC #### [address] Specific gravity Auto test s trip (U) [Rel density]Ordered By: Gabino Parker on 05-30-2023 Specific gravity (U) [Rel density] 1.011 1.001-1.030 [facility] Squamous epithelial cells de tection in urine sediment by light microscopyOrdered By: Gabino Parker on 05-30-2023 Epithelial cells.squamous LM Ql (Urine sed) 0-1 [HPF] 0-2 [facility] Urea nitrogen [Mass/volume] in Serum or PlasmaOrdered By: Gabino Parker on 05-30-2023 Urea nitrogen [Mass/Vol] 6 mg/dL Low 7-25 [facility] Comment on above: Performed By: #### M G, LIPASE, CMP, CBC, HEPATIC #### [address] Urine Cultureon 05-30-2023 Bacteria identified Cx Nom (U) 75,000 colonies/ml mixed bacterial skin contaminants 2 Days PERFORMED BY: [place] [address] PATHOLOGIST MOLDER OPERATOR BAUTISTA BAKER M.D. Normal [facility] Comment on above: Performed By: #### A CORY, ELIS, CUU #### [facility] [address] [place] [id number] [facility] Urine bacteria detection by automated methodOrdered By: Gabino Parker on 05-30-2023 Bacteria Auto Ql (U) None seen None Seen [facility] Urine clarity by refractomet ry automatedOrdered By: Gabino Parker on 05-30-2023 Clarity Refractometry automated (U) Clear Clear [facility] Urine culture routineOrdered By: Gabino Parker on 05-30-2023 Bacteria identified Cx Nom (U) 2 Days [facility] Urine glucose measurement by automated test strip (mass/volume)Ordered By: Gabino Parker on 05-30-2023 Glucose Auto test strip (U) [Mass/Vol] Normal mg/dL Normal [facility] Urine hemoglobin detection b y automated test stripOrdered By: Gabino Parker on 05-30-2023 Hemoglobin Auto test strip Ql (U) Negative Negative [facility] Urine leukocyte esterase det ection by automated test stripOrdered By: Gabino Parker on 05-30-2023 Leukocyte esterase Auto test strip Ql (U) 1+ High Negative [facility] Urine pH measurement by auto mated test stripOrdered By: Gabino Parker on 05-30-2023 pH (U) [pH] Normal 5.0-9.0 [facility] Comment on above: Order Comment: Name Collection Type:: Clean-Voided Midstream Performed By: #### A CORY, JOSESITO, CUU #### [facility] [address] [place], [place] [id number] [facility] Urobilinogen Auto test strip (U) [Mass/Vol]Ordered By: Gabino Parker on 05-30-2023 Urobilinogen (U) [Mass/Vol] Normal mg/dL Normal [facility] Basic metabolic 2000 panelon 05-28-2023 Anion gap [Moles/Vol] 10 mmol/L Normal 9-18 [facility] Comment on above: Order Comment: Speci men Type: BLOOD SPECIMENOrdering Facility: [facility] Address: [address] [place] [address] Performed By: #### 1 9123-9, 27708-15, ####[facility] LABORATORYCLIA [id number] [place] [id number] [place] Calcium [Mass/Vol] 8.5 mg/dL Normal 8.5-10.2 [facility] Comment on above: Order Comment: Speci men Type: BLOOD SPECIMENOrdering Facility: [facility] Address: [address] [place] [address] Performed By: #### 1 9123-9, 2776-02, ####[facility] LABORATORYCLIA [id number] [place] [address] [place] Chloride [Moles/Vol] 105 mmol/L Normal 97-105 [facility] Comment on above: Order Comment: Speci men Type: BLOOD SPECIMENOrdering Facility: [facility] Address: [address] [place] [address] Performed By: #### 1 9123-9, 27708-15, ####[facility] LABORATORYCLIA [id number] [place] [address] [place] CO2 [Moles/Vol] 24 mmol/L Normal 22-30 [facility] Comment on above: Order Comment: Speci men Type: BLOOD SPECIMENOrdering Facility: [facility] Address: [address] [place] [address] Performed By: #### 1 9123-9, 27708-15, ####[facility] LABORATORYCLIA [id number] [place] [address] [place] Creatinine [Mass/Vol] 0.52 mg/dL Low 0.58-0.96 [facility] Comment on above: Order Comment: Speci men Type: BLOOD SPECIMENOrdering Facility: [facility] Address: [address] [place] [address] Performed By: #### 1 9123-9, 27708-15, 06853-4 ####[facility] LABORATORYCLIA [id number] [place] [address] [place] Creatinine and Glomerular filtration rate.predicted panel (S/P/Bld) 125 mL/min/1.73m??? Normal >=60 [facility] Comment on above: Order Comment: Lyssamichael marrero Type: BLOOD SPECIMENOrdering Facility: [facility] Address: [address] [place] [address] Result Comment: Jessica mated Glomerular Filtration Rate [...] actual GFR. Performed By: #### 1 9123-9, 2777-1, 92652-2 ####[facility] LABORATORYCLIA [id number] [place] [address] [place] Glucose [Mass/Vol] 77 mg/dL Normal 74-99 [facility] Comment on above: Order Comment: Geraldo marrero Type: BLOOD SPECIMENOrdering Facility: [facility] Address: [address] [place] [address] Result Comment: The [place] [employer] (ADA) provides guidance for cutoff [...] Standards of Medical Care in Diabetes 2016, [place] [employer]. Diabetes Care. 2016.39(Suppl 1). Performed By: #### 1 9123-9, 2777-1, 30608-9 ####T[facility] LABORATORYCLIA [id number] [place] [address] [place] Potassium [Moles/Vol] 4.2 mmol/L Normal 3.7-5.1 [facility] Comment on above: Order Comment: Speci men Type: BLOOD SPECIMENOrdering Facility: [facility] Address: [address] [place] [address] Performed By: #### 1 9123-9, 27708-15, ####[facility] LABORATORYCLIA [id number] [place] [address] [place] Sodium [Moles/Vol] 139 mmol/L Normal 136-144 [facility] Comment on above: Order Comment: Speci men Type: BLOOD SPECIMENOrdering Facility: [facility] Address: [address] [place] [address] Performed By: #### 1 9123-9, 27708-15, ####[facility] LABORATORYCLIA [id number] [place] [address] [place] Urea nitrogen [Mass/Vol] 8 mg/dL Normal 7-21 [facility] Comment on above: Order Comment: Speci men Type: BLOOD SPECIMENOrdering Facility: [facility] Address: [address] [place] [address] Performed By: #### 1 9123-9, 27708-15, ####TRE[facility] LABORATORYCLIA [id number] [place] [address] [place] CBC panel Auto (Bld)on 05-27 Erythrocyte distribution width (RBC) [Ratio] 13.7 % Normal 11.5-15.0 [facility] Comment on above: Order Comment: Speci men Type: BLOOD SPECIMENOrdering Facility: [facility] Address: [address] [place] [address] Performed By: #### 5 8410-2 ####TREZEV[facility] LABORATORYCLIA [id number] [place] [address] [place] Hematocrit (Bld) [Volume fraction] 31.5 % Low 36.0-46.0 [facility] Comment on above: Order Comment: Speci men Type: BLOOD SPECIMENOrdering Facility: [facility] Address: [address] [place] [address] Performed By: #### 5 8410-2 ####TRE[facility] LABORATORYCLIA [id number] [place] [address] [facility] Hemoglobin (Bld) [Mass/Vol] 11.1 g/dL Low 11.5-15.5 [facility] Comment on above: Order Comment: Speci men Type: BLOOD SPECIMENOrdering Facility: [facility] Address: [address] [place] [address] Performed By: #### 5 8410-2 ####[facility] LABORATORYCLIA [id number] [address] [place] [facility] MCH (RBC) [Entitic mass] 31.4 pg Normal 26.0-34.0 [facility] Comment on above: Order Comment: Speci men Type: BLOOD SPECIMENOrdering Facility: [facility] Address: [address] [place] [address] Performed By: #### 5 8410-2 ####[facility] LABORATORYCLIA [id number] [address] MCHC (RBC) [Mass/Vol] 35.2 g/dL Normal 30.5-36.0 [facility] Comment on above: Order Comment: Speci men Type: BLOOD SPECIMENOrdering Facility: [facility] Address: [address] [place] [address] Performed By: #### 5 8410-2 ####[facility] LABORATORYCLIA [id number] [address] MCV (RBC) [Entitic vol] 89.2 fL Normal 80.0-100.0 [facility] Comment on above: Order Comment: Speci men Type: BLOOD SPECIMENOrdering Facility: [facility] Address: [address] [place] [address] Performed By: #### 5 8410-2 ####TRE[facility] LABORATORYCLIA [id number] [address] Nucleated RBC (Bld) [#/Vol] 10*3/uL Normal <0.01 [facility] Comment on above: Order Comment: Speci men Type: BLOOD SPECIMENOrdering Facility: [facility] Address: [address] [place] [address] Performed By: #### 5 8410-2 ####OS[facility] LABORATORYCLIA [id number] [place] [id number] [place] Platelet mean volume (Bld) [Entitic vol] 11.8 fL Normal 9.0-12.7 [facility] Comment on above: Order Comment: Speci men Type: BLOOD SPECIMENOrdering Facility: [facility] Address: [address] [place] [address] Performed By: #### 5 8410-2 ####[facility] LABORATORYCLIA [id number] [place] [address] [place] Platelets (Bld) [#/Vol] 199 10*3/uL Normal 150-400 [facility] Comment on above: Order Comment: Speci men Type: BLOOD SPECIMENOrdering Facility: [facility] Address: [address] [place] [address] Performed By: #### 5 8410-2 ####[facility] LABORATORYCLIA [id number] [place] [address] [place] RBC (Bld) [#/Vol] 3.53 10*6/uL Low 3.90-5.20 [facility] Comment on above: Order Comment: Speci men Type: BLOOD SPECIMENOrdering Facility: [facility] Address: [address] [place] [address] Performed By: #### 5 8410-2 ####[facility] LABORATORYCLIA [id number] [place] [address] [place] WBC (Bld) [#/Vol] 6.24 10*3/uL Normal 3.70-11.00 [facility] Comment on above: Order Comment: Speci men Type: BLOOD SPECIMENOrdering Facility: [facility] Address: [address] [place] [address] Performed By: #### 5 8410-2 ####OS[facility] LABORATORYCLIA [id number] [place] [address] [place] CNCOon 05-28-2023 CNCO Letter Text Normal [facility] CNDSon 05-28-2023 CNDS Normal [facility] CNPNon 05-28-2023 CNPN Normal [facility] Magnesium SerPl-mCncon 05-27 Magnesium [Mass/Vol] 1.9 mg/dL Normal 1.7-2.3 [facility] Comment on above: Order Comment: Speci men Type: BLOOD SPECIMENOrdering Facility: [facility] Address: [address] [place] [address] Performed By: #### 1 9123-9, 2777-1, 86582-9 ####T[facility] LABORATORYCLIA [id number] [place] [address] [facility] [place] NURSING PROGon 05-28-2023 NURSING PROG Normal [facility] Phosphate SerPl-mCncon 05-27 Phosphate [Mass/Vol] 2.3 mg/dL Low 2.7-4.8 [facility] Comment on above: Order Comment: Speci men Type: BLOOD SPECIMENOrdering Facility: [facility] Address: [address] [place] [address] Performed By: #### 1 9123-9, 2777-1, 22231-7 ####[facility] LABORATORYCLIA [id number] [place] [address] [place] Basic metabolic 2000 panelon 05-27-2023 Anion gap [Moles/Vol] 10 mmol/L Normal 9-18 [facility] Comment on above: Order Comment: Speci men Type: BLOOD SPECIMENOrdering Facility: [facility] Address: [address] [place], [place] [address] Performed By: #### 2 777-1, 16516-7, 60591-8 ####[facility] LABORATORYCLIA [id number] [place] [address] [place] Calcium [Mass/Vol] 8.9 mg/dL Normal 8.5-10.2 [facility] Comment on above: Order Comment: Speci men Type: BLOOD SPECIMENOrdering Facility: [facility] Address: [address] [place] [address] Performed By: #### 2 777-1, 08570-5, ####[facility] LABORATORYCLIA [id number] [place] [address] [place] Chloride [Moles/Vol] 104 mmol/L Normal 97-105 [facility] Comment on above: Order Comment: Speci men Type: BLOOD SPECIMENOrdering Facility: [facility] Address: [address] [place] [address] Performed By: #### 2 777-1, 34180-7, ####T[facility] LABORATORYCLIA [id number] [place] [address] [place] CO2 [Moles/Vol] 25 mmol/L Normal 22-30 [facility] Comment on above: Order Comment: Speci men Type: BLOOD SPECIMENOrdering Facility: [facility] Address: [address] [place] [address] Performed By: #### 2 777-1, , ####[facility] LABORATORYCLIA [id number] [place] [address] [place] Creatinine [Mass/Vol] 0.57 mg/dL Low 0.58-0.96 [facility] Comment on above: Order Comment: Speci men Type: BLOOD SPECIMENOrdering Facility: [facility] Address: [address] [place] [address] Performed By: #### 2 777-1, , ####TREZ[facility] LABORATORYCLIA [id number] [place] [address] [facility] Creatinine and Glomerular filtration rate.predicted panel (S/P/Bld) 122 mL/min/1.73m??? Normal >=60 [facility] Comment on above: Order Comment: Speci men Type: BLOOD SPECIMENOrdering Facility: [facility] Address: [address] [place] [address] Result Comment: Jessica mated Glomerular Filtration Rate [...] actual GFR. Performed By: #### 2 777-1, 74079-7, ####T[facility] LABORATORYCLIA [id number] [place] [address] [place] Glucose [Mass/Vol] 101 mg/dL High 74-99 [facility] Comment on above: Order Comment: Geraldo marrero Type: BLOOD SPECIMENOrdering Facility: [facility] Address: [address] [place] [address] Result Comment: The [place] [employer] (ADA) provides guidance for cutoff [...] Standards of Medical Care in Diabetes 2016, [place] [employer]. Diabetes Care. 2016.39(Suppl 1). Performed By: #### 2 777-1, , ####[facility] LABORATORYCLIA [id number] [place] [address] [place] Potassium [Moles/Vol] 4.0 mmol/L Normal 3.7-5.1 [facility] Comment on above: Order Comment: Geraldo marrero Type: BLOOD SPECIMENOrdering Facility: [facility] Address: [address] [place] [address] Performed By: #### 2 777-1, 44400-9, ####[facility] LABORATORYCLIA [id number] [place] [address] [place] Sodium [Moles/Vol] 139 mmol/L Normal 136-144 [facility] Comment on above: Order Comment: Geraldo marrero Type: BLOOD SPECIMENOrdering Facility: [facility] Address: [address] [place] [address] Performed By: #### 2 777-1, 21913-4, ####[facility] LABORATORYCLIA [id number] [place] [address] [place] [facility] Urea nitrogen [Mass/Vol] 6 mg/dL Low 7-21 [facility] Comment on above: Order Comment: Speci men Type: BLOOD SPECIMENOrdering Facility: [facility] Address: [address] [place] [address] Performed By: #### 2 777-1, 56010-0, ####[facility] LABORATORYCLIA [id number] [place] [address] [facility] [place] CASE MANAGEMon 05-27-2023 CASE MANAGEM Normal [facility] CBC panel Auto (Bld)on 05-26 Erythrocyte distribution width (RBC) [Ratio] 13.5 % Normal 11.5-15.0 [facility] Comment on above: Order Comment: Speci men Type: BLOOD SPECIMENOrdering Facility: [facility] Address: [address] [place] [address] Performed By: #### 5 8410-2 ####OS[facility] LABORATORYCLIA [id number] [place] [address] [place] [facility] Hematocrit (Bld) [Volume fraction] 36.5 % Normal 36.0-46.0 [facility] Comment on above: Order Comment: Speci men Type: BLOOD SPECIMENOrdering Facility: [facility] Address: [address] [place] [address] Performed By: #### 5 8410-2 ####[facility] LABORATORYCLIA [id number] [place] [address] [place] Hemoglobin (Bld) [Mass/Vol] 12.8 g/dL Normal 11.5-15.5 [facility] Comment on above: Order Comment: Speci men Type: BLOOD SPECIMENOrdering Facility: [facility] Address: [address] [place] [address] Performed By: #### 5 8410-2 ####OS[facility] LABORATORYCLIA [id number] [address] [place] [facility] MCH (RBC) [Entitic mass] 30.9 pg Normal 26.0-34.0 [facility] Comment on above: Order Comment: Speci men Type: BLOOD SPECIMENOrdering Facility: [facility] Address: [address] [place] [address] Performed By: #### 5 8410-2 ####[facility] LABORATORYCLIA [id number] [address] [place] [facility] MCHC (RBC) [Mass/Vol] 35.1 g/dL Normal 30.5-36.0 [facility] Comment on above: Order Comment: Speci men Type: BLOOD SPECIMENOrdering Facility: [facility] Address: [address] [place] [address] Performed By: #### 5 8410-2 ####OS[facility] LABORATORYCLIA [id number] [address] [place] MCV (RBC) [Entitic vol] 88.2 fL Normal 80.0-100.0 [facility] Comment on above: Order Comment: Speci men Type: BLOOD SPECIMENOrdering Facility: [facility] Address: [address] [place] [address] Performed By: #### 5 8410-2 ####OS[facility] LABORATORYCLIA [id number] [address] Nucleated RBC (Bld) [#/Vol] 10*3/uL Normal <0.01 [facility] Comment on above: Order Comment: Speci men Type: BLOOD SPECIMENOrdering Facility: [facility] Address: [address] [place] [address] Performed By: #### 5 8410-2 ####[facility] LABORATORYCLIA [id number] [address] Platelet mean volume (Bld) [Entitic vol] 11.5 fL Normal 9.0-12.7 [facility] Comment on above: Order Comment: Speci men Type: BLOOD SPECIMENOrdering Facility: [facility] Address: [address] [place] [address] Performed By: #### 5 8410-2 ####T[facility] LABORATORYCLIA [id number] [place] [address] [facility] [place] Platelets (Bld) [#/Vol] 205 10*3/uL Normal 150-400 [facility] Comment on above: Order Comment: Speci men Type: BLOOD SPECIMENOrdering Facility: [facility] Address: [address] [place] [address] Performed By: #### 5 8410-2 ####T[facility] LABORATORYCLIA [id number] [place] [address] [place] RBC (Bld) [#/Vol] 4.14 10*6/uL Normal 3.90-5.20 [facility] Comment on above: Order Comment: Speci men Type: BLOOD SPECIMENOrdering Facility: [facility] Address: [address] [place] [address] Performed By: #### 5 8410-2 ####TRE[facility] LABORATORYCLIA [id number] [place] [address] [facility] WBC (Bld) [#/Vol] 6.24 10*3/uL Normal 3.70-11.00 [facility] Comment on above: Order Comment: Speci men Type: BLOOD SPECIMENOrdering Facility: [facility] Address: [address] [place] [address] Performed By: #### 5 8410-2 ####TRE[facility] LABORATORYCLIA [id number] [place] [address] [facility] [place] Magnesium SerPl-mCncon 05-26 Magnesium [Mass/Vol] 1.8 mg/dL Normal 1.7-2.3 [facility] Comment on above: Order Comment: Speci men Type: BLOOD SPECIMENOrdering Facility: [facility] Address: [address] [place] [address] Performed By: #### 2 777-1, 64868-6, 81672-2 ####TRE[facility] LABORATORYCLIA [id number] [place] [address] [facility] NURSING PROGon 05-27-2023 NURSING PROG Normal [facility] NUTRITIONon 05-27-2023 NUTRITION Normal [facility] Phosphate SerPl-mCncon 05-26 Phosphate [Mass/Vol] 2.4 mg/dL Low 2.7-4.8 [facility] Comment on above: Order Comment: Speci men Type: BLOOD SPECIMENOrdering Facility: [facility] Address: [address] [place] [address] Performed By: #### 2 777-1, 61083-0, ####T[facility] LABORATORYCLIA [id number] [place] [address] [facility] [place] ALLIED HEALTHon 05-26-2023 ALLIED HEALTH Normal [facility] Basic metabolic 2000 panelon 05-26-2023 Anion gap [Moles/Vol] 13 mmol/L Normal 9-18 [facility] Comment on above: Order Comment: Speci men Type: BLOOD SPECIMENOrdering Facility: [facility] Address: [address] [place], [place] [address] Performed By: #### 2 4321-2, , 2776-02 ####T[facility] LABORATORYCLIA [id number] [place] [address] [place] Calcium [Mass/Vol] 9.0 mg/dL Normal 8.5-10.2 [facility] Comment on above: Order Comment: Speci men Type: BLOOD SPECIMENOrdering Facility: [facility] Address: [address] [place], [place] [address] Performed By: #### 2 4321-2, , 2776-02 ####T[facility] LABORATORYCLIA [id number] [place] [address] [place] Chloride [Moles/Vol] 103 mmol/L Normal 97-105 [facility] Comment on above: Order Comment: Speci men Type: BLOOD SPECIMENOrdering Facility: [facility] Address: [address] [place], [place] [address] Performed By: #### 2 4321-2, , 2776-02 ####[facility] LABORATORYCLIA [id number] [place] [address] [place] CO2 [Moles/Vol] 20 mmol/L Low 22-30 [facility] Comment on above: Order Comment: Speci men Type: BLOOD SPECIMENOrdering Facility: [facility] Address: [address] [place] [address] Performed By: #### 2 4321-2, , 2776-02 ####T[facility] LABORATORYCLIA [id number] [place] [address] [place] Creatinine [Mass/Vol] 0.68 mg/dL Normal 0.58-0.96 [facility] Comment on above: Order Comment: Speci men Type: BLOOD SPECIMENOrdering Facility: [facility] Address: [address] [place] [address] Performed By: #### 2 4321-2, , 2776-02 ####TRE[facility] LABORATORYCLIA [id number] [address] Creatinine and Glomerular filtration rate.predicted panel (S/P/Bld) 117 mL/min/1.73m??? Normal >=60 [facility] Comment on above: Order Comment: Speci men Type: BLOOD SPECIMENOrdering Facility: [facility] Address: [address] [place] [address] Result Comment: Jessica mated Glomerular Filtration Rate [...] Performed By: #### 2 4321-2, , 2776-02 ####T[facility] LABORATORYCLIA [id number] [place] [address] [place] Glucose [Mass/Vol] 71 mg/dL Low 74-99 [facility] Comment on above: Order Comment: Speci men Type: BLOOD SPECIMENOrdering Facility: [facility] Address: [address] [place] [address] Result Comment: The [place] [employer] (ADA) provides guidance for cutoff [...] Standards of Medical Care in Diabetes 2016, [place] [employer]. Diabetes Care. 2016.39(Suppl 1). Performed By: #### 2 4321-2, , 2776-02 ####[facility] LABORATORYCLIA [id number] [place] [address] [place] Potassium [Moles/Vol] 4.3 mmol/L Normal 3.7-5.1 [facility] Comment on above: Order Comment: Geraldo marrero Type: BLOOD SPECIMENOrdering Facility: [facility] Address: [address] [place] [address] Performed By: #### 2 432-2, , 2776-02 ####[facility] LABORATORYCLIA [id number] [place] [address] [place] Sodium [Moles/Vol] 136 mmol/L Normal 136-144 [facility] Comment on above: Order Comment: Speci men Type: BLOOD SPECIMENOrdering Facility: [facility] Address: [address] [place] [address] Performed By: #### 2 4321-2, , 2776-02 ####[facility] LABORATORYCLIA [id number] [place] [address] [place] Urea nitrogen [Mass/Vol] 10 mg/dL Normal 7-21 [facility] Comment on above: Order Comment: Lyssai men Type: BLOOD SPECIMENOrdering Facility: [facility] Address: [address] [place] [address] Performed By: #### 2 432-2, , 7-1 ####T[facility] LABORATORYCLIA [id number] [place] [address] [place] CASE MGT INIT ASSESon 2023 CASE MGT INIT ASSES Normal [facility] CBC panel Auto (Bld)on 05-25 Erythrocyte distribution width (RBC) [Ratio] 13.3 % Normal 11.5-15.0 [facility] Comment on above: Order Comment: Speci men Type: BLOOD SPECIMENOrdering Facility: [facility] Address: [address] [place] [address] Performed By: #### 5 8410-2 ####T[facility] LABORATORYCLIA [id number] [address] [place] Hematocrit (Bld) [Volume fraction] 33.8 % Low 36.0-46.0 [facility] Comment on above: Order Comment: Speci men Type: BLOOD SPECIMENOrdering Facility: [facility] Address: [address] [place] [address] Performed By: #### 5 8410-2 ####[facility] LABORATORYCLIA [id number] [place] [address] [place] Hemoglobin (Bld) [Mass/Vol] 11.5 g/dL Normal 11.5-15.5 [facility] Comment on above: Order Comment: Speci men Type: BLOOD SPECIMENOrdering Facility: [facility] Address: [address] [place] [address] Performed By: #### 5 8410-2 ####[facility] LABORATORYCLIA [id number] [place] [address] [place] MCH (RBC) [Entitic mass] 30.5 pg Normal 26.0-34.0 [facility] Comment on above: Order Comment: Speci men Type: BLOOD SPECIMENOrdering Facility: [facility] Address: [address] [place] [address] Performed By: #### 5 8410-2 ####[facility] LABORATORYCLIA [id number] [place] [id number] [place] MCHC (RBC) [Mass/Vol] 34.0 g/dL Normal 30.5-36.0 [facility] Comment on above: Order Comment: Speci men Type: BLOOD SPECIMENOrdering Facility: [facility] Address: [address] [place] [address] Performed By: #### 5 8410-2 ####[facility] LABORATORYCLIA [id number] [place] [id number] [place] MCV (RBC) [Entitic vol] 89.7 fL Normal 80.0-100.0 [facility] Comment on above: Order Comment: Speci men Type: BLOOD SPECIMENOrdering Facility: [facility] Address: [address] [place] [address] Performed By: #### 5 8410-2 ####[facility] LABORATORYCLIA [id number] [address] [place] Nucleated RBC (Bld) [#/Vol] 10*3/uL Normal <0.01 [facility] Comment on above: Order Comment: Speci men Type: BLOOD SPECIMENOrdering Facility: [facility] Address: [address] [place] [address] Performed By: #### 5 8410-2 ####[facility] LABORATORYCLIA [id number] [place] [address] [place] Platelet mean volume (Bld) [Entitic vol] 11.7 fL Normal 9.0-12.7 [facility] Comment on above: Order Comment: Speci men Type: BLOOD SPECIMENOrdering Facility: [facility] Address: [address] [place] [address] Performed By: #### 5 8410-2 ####[facility] LABORATORYCLIA [id number] [place] [address] [place] Platelets (Bld) [#/Vol] 181 10*3/uL Normal 150-400 [facility] Comment on above: Order Comment: Speci men Type: BLOOD SPECIMENOrdering Facility: [facility] Address: [address] [place] [address] Performed By: #### 5 8410-2 ####[facility] LABORATORYCLIA [id number] [place] [id number] [place] RBC (Bld) [#/Vol] 3.77 10*6/uL Low 3.90-5.20 [facility] Comment on above: Order Comment: Speci men Type: BLOOD SPECIMENOrdering Facility: [facility] Address: [address] [place] [address] Performed By: #### 5 8410-2 ####[facility] LABORATORYCLIA [id number] [place] [address] [place] WBC (Bld) [#/Vol] 5.34 10*3/uL Normal 3.70-11.00 [facility] Comment on above: Order Comment: Speci men Type: BLOOD SPECIMENOrdering Facility: [facility] Address: [address] [place] [address] Performed By: #### 5 8410-2 ####[facility] LABORATORYCLIA [id number] [place] [address] [place] Magnesium SerPl-ncon 05-25 Magnesium [Mass/Vol] 1.6 mg/dL Low 1.7-2.3 [facility] Comment on above: Order Comment: Speci men Type: BLOOD SPECIMENOrdering Facility: [facility] Address: [address] [place] [address] Performed By: #### 2 4321-2, 31513-7, 27771 ####[facility] LABORATORYCLIA [id number] [place] [id number] [place] NUTRITIONon 05-26-2023 NUTRITION Normal [facility] Phosphate SerPl-mCncon 05-25 Phosphate [Mass/Vol] 4.5 mg/dL Normal 2.7-4.8 [facility] Comment on above: Order Comment: Speci men Type: BLOOD SPECIMENOrdering Facility: [facility] Address: [address] [place] [address] Performed By: #### 2 4321-2, 55443-0, 2777-1 ####[facility] LABORATORYCLIA [id number] [place] [address] [place] XR ABDOMEN 1V SUPINEon 05-25 XR ABDOMEN 1V SUPINE Normal [facility] ANES POSTPROC EVALon 024 ANES POSTPROC EVAL Normal [facility] ANES PRE-OPon 05-25-2023 ANES PRE-OP Normal [facility] HISTORY PHYSICALon HISTORY PHYSICAL Normal [facility] NURSING PROGon 05-25-2023 NURSING PROG Normal [facility] NURSING PROG Normal [facility] Upper GI endoscopyon 024 Upper GI endoscopy Normal [facility] CNPNon 05-24-2023 CNPN Normal [facility] Recordson 2023 Home Health Records [id number] [id number]#[id number] Normal [facility] Basic metabolic 2000 panelon 05-22-2023 Anion gap [Moles/Vol] 10 mmol/L Normal 9-18 [facility] Comment on above: Order Comment: Speci men Type: BLOOD SPECIMENOrdering Facility: [facility] Address: [address] [place] [address] Performed By: #### 2 4321-2, , 2776-02 ####[facility] LABORATORYCLIA [id number] [place] [address] [place] Calcium [Mass/Vol] 8.9 mg/dL Normal 8.5-10.2 [facility] Comment on above: Order Comment: Speci men Type: BLOOD SPECIMENOrdering Facility: [facility] Address: [address] [place] [address] Performed By: #### 2 4321-2, , 2776-02 ####[facility] LABORATORYCLIA [id number] [place] [address] [place] Chloride [Moles/Vol] 110 mmol/L High 97-105 [facility] Comment on above: Order Comment: Speci men Type: BLOOD SPECIMENOrdering Facility: [facility] Address: [address] [place] [address] Performed By: #### 2 4321-2, , 2776-02 ####[facility] LABORATORYCLIA [id number] [place] [address] [place] CO2 [Moles/Vol] 23 mmol/L Normal 22-30 [facility] Comment on above: Order Comment: Speci men Type: BLOOD SPECIMENOrdering Facility: [facility] Address: [address] [place] [address] Performed By: #### 2 4321-2, , 2776-02 ####[facility] LABORATORYCLIA [id number] [place] [address] [place] Creatinine [Mass/Vol] 0.73 mg/dL Normal 0.58-0.96 [facility] Comment on above: Order Comment: Speci men Type: BLOOD SPECIMENOrdering Facility: [facility] Address: [address] [place] [address] Performed By: #### 2 432-2, , 2776-02 ####[facility] LABORATORYCLIA [id number] [place] [address] [place] [facility] Creatinine and Glomerular filtration rate.predicted panel (S/P/Bld) 111 mL/min/1.73m??? Normal >=60 [facility] Comment on above: Order Comment: Geraldo marrero Type: BLOOD SPECIMENOrdering Facility: [facility] Address: [address] [place] [address] Result Comment: Jessica mated Glomerular Filtration Rate [...] Performed By: #### 2 4321-2, , 2776-02 ####[facility] LABORATORYCLIA [id number] [place] [address] [place] Glucose [Mass/Vol] 73 mg/dL Low 74-99 [facility] Comment on above: Order Comment: Speci men Type: BLOOD SPECIMENOrdering Facility: [facility] Address: [address] [place], [place] [address] Result Comment: The [place] [employer] (ADA) provides guidance for cutoff [...] Standards of Medical Care in Diabetes 2016, [place] [employer]. Diabetes Care. 2016.39(Suppl 1). Performed By: #### 2 4321-2, , 2776-02 ####[facility] LABORATORYCLIA [id number] [place] [address] [place] Potassium [Moles/Vol] 3.7 mmol/L Normal 3.7-5.1 [facility] Comment on above: Order Comment: Speci men Type: BLOOD SPECIMENOrdering Facility: [facility] Address: [address] [place], [place] [address] Performed By: #### 2 4321-2, , 2776-02 ####[facility] LABORATORYCLIA [id number] [place] [address] [place] Sodium [Moles/Vol] 143 mmol/L Normal 136-144 [facility] Comment on above: Order Comment: Speci men Type: BLOOD SPECIMENOrdering Facility: [facility] Address: [address] [place], [place] [address] Performed By: #### 2 4321-2, , 2776-02 ####[facility] LABORATORYCLIA [id number] [place] [address] [place] Urea nitrogen [Mass/Vol] 6 mg/dL Low 7-21 [facility] Comment on above: Order Comment: Speci men Type: BLOOD SPECIMENOrdering Facility: [facility] Address: [address] [place] [address] Performed By: #### 2 4321-2, , 2776-02 ####[facility] LABORATORYCLIA [id number] [place] [address] [place] CASE MANAGEMon 05-22-2023 CASE MANAGEM Normal [facility] CNDSon 05-22-2023 CNDS Normal [facility] Magnesium [facility] Magnesium [Mass/Vol] 1.9 mg/dL Normal 1.7-2.3 [facility] Comment on above: Order Comment: Speci men Type: BLOOD SPECIMENOrdering Facility: [facility] Address: [address] [place] [address] Performed By: #### 2 4321-2, , 2776-02 ####[facility] LABORATORYCLIA [id number] [place] [address] [place] NUTRITIONon 05-22-2023 NUTRITION Normal [facility] Phosphate SerPl-ncon 05-21 Phosphate [Mass/Vol] 4.3 mg/dL Normal 2.7-4.8 [facility] Comment on above: Order Comment: Speci men Type: BLOOD SPECIMENOrdering Facility: [facility] Address: [address] [place] [address] Performed By: #### 2 4321-2, , 2776-02 ####[facility] LABORATORYCLIA [id number] [place] [address] [place] Basic metabolic 2000 panelon 05-21-2023 Anion gap [Moles/Vol] 12 mmol/L Normal 9-18 [facility] Comment on above: Order Comment: Speci men Type: BLOOD SPECIMENOrdering Facility: [facility] Address: [address] [place] [address] Performed By: #### 2 4321-2, , 2776-02 ####[facility] LABORATORYCLIA [id number] [place] [address] [place] Calcium [Mass/Vol] 8.8 mg/dL Normal 8.5-10.2 [facility] Comment on above: Order Comment: Speci men Type: BLOOD SPECIMENOrdering Facility: [facility] Address: [address] [place] [address] Performed By: #### 2 4321-2, , 2776-02 ####[facility] LABORATORYCLIA [id number] [place] [address] [place] Chloride [Moles/Vol] 107 mmol/L High 97-105 [facility] Comment on above: Order Comment: Speci men Type: BLOOD SPECIMENOrdering Facility: [facility] Address: [address] [place] [address] Performed By: #### 2 4321-2, , 2776-02 ####[facility] LABORATORYCLIA [id number] [place] [address] [place] CO2 [Moles/Vol] 19 mmol/L Low 22-30 [facility] Comment on above: Order Comment: Speci men Type: BLOOD SPECIMENOrdering Facility: [facility] Address: [address] [place] [address] Performed By: #### 2 4321-2, , 2776-02 ####[facility] LABORATORYCLIA [id number] [place] [address] [place] Creatinine [Mass/Vol] 0.72 mg/dL Normal 0.58-0.96 [facility] Comment on above: Order Comment: Speci men Type: BLOOD SPECIMENOrdering Facility: [facility] Address: [address] [place] [address] Performed By: #### 2 4321-2, , 2776-02 ####[facility] LABORATORYCLIA [id number] [place] [address] [place] Creatinine and Glomerular filtration rate.predicted panel (S/P/Bld) 113 mL/min/1.73m??? Normal >=60 [facility] Comment on above: Order Comment: Speci men Type: BLOOD SPECIMENOrdering Facility: [facility] Address: [address] [place] [address] Result Comment: Jessica mated Glomerular Filtration Rate [...] Performed By: #### 2 4321-2, , 2776-02 ####[facility] LABORATORYCLIA [id number] [place] [address] [place] Glucose [Mass/Vol] 85 mg/dL Normal 74-99 [facility] Comment on above: Order Comment: Geraldo marrero Type: BLOOD SPECIMENOrdering Facility: [facility] Address: [address] [place] [address] Result Comment: The [place] Diabetes Association (ADA) provides guidance for cutoff [...] Standards of Medical Care in Diabetes 2016, [place] [employer]. Diabetes Care. 2016.39(Suppl 1). Performed By: #### 2 4321-2, , 2776-02 ####[facility] LABORATORYCLIA [id number] [place] [address] [place] Potassium [Moles/Vol] 3.8 mmol/L Normal 3.7-5.1 [facility] Comment on above: Order Comment: Geraldo marrero Type: BLOOD SPECIMENOrdering Facility: [facility] Address: [address] [place] [address] Performed By: #### 2 4321-2, , 2776-02 ####[facility] LABORATORYCLIA [id number] [place] [address] [place] Sodium [Moles/Vol] 138 mmol/L Normal 136-144 [facility] Comment on above: Order Comment: Speci men Type: BLOOD SPECIMENOrdering Facility: [facility] Address: [facility] [place] [address] Performed By: #### 2 4321-2, , 2776-02 ####[facility] LABORATORYCLIA [id number] [place] [address] [place] Urea nitrogen [Mass/Vol] 5 mg/dL Low 7-21 [facility] Comment on above: Order Comment: Speci men Type: BLOOD SPECIMENOrdering Facility: [facility] Address: [address] [place] [address] Performed By: #### 2 4321-2, , 2776-02 ####[facility] LABORATORYCLIA [id number] [place] [address] [facility] [place] CASE MANAGEMon 05-21-2023 CASE MANAGEM Normal [facility] CASE MANAGEM Normal [facility] CASE MGT INIT ASSon 2023 CASE MGT INIT [facility] Magnesium SerPl[facility] Systemon 05-20 Magnesium [Mass/Vol] 1.9 mg/dL Normal 1.7-2.3 [facility] Comment on above: Order Comment: Speci men Type: BLOOD SPECIMENOrdering Facility: [facility] Address: [address] [place] [address] Performed By: #### 2 4321-2, , 2776-02 ####[facility] LABORATORYCLIA [id number] [place] [address] [place] NURSING PROGon 05-21-2023 NURSING PROG [facility] Phosphate SerPl-mCncon 05-20 Phosphate [Mass/Vol] 4.1 mg/dL Normal 2.7-4.8 [facility] Comment on above: Order Comment: Speci men Type: BLOOD SPECIMENOrdering Facility: [facility] Address: [address] [place] [address] Performed By: #### 2 4321-2, , 2776-02 ####[facility] LABORATORYCLIA [id number] [place] [address] [place] ALLIED HEALTHon 05-20-2023 ALLIED HEALTH Normal [facility] ANES POSTPROC EVALon 024 ANES POSTPROC EVAL Normal [facility] ANES PRE-OPon 05-20-2023 ANES PRE-OP Normal [facility] Bacteria Ur Culton Bacteria identified Cx Nom (U) ORGANISM ID: 1 10,000 -<50,000 CFU/ml Normal urogenital annika Normal [facility] Comment on above: Performed By: #### 6 30-4 ####[facility] LABCLIA [id number] [place] [address] [place] Basic metabolic 2000 panelon 05-20-2023 Anion gap [Moles/Vol] 12 mmol/L Normal 9-18 [facility] Comment on above: Order Comment: Speci men Type: BLOOD SPECIMENOrdering Facility: [facility] Address: [address] [place] [address] Performed By: #### 2 4321-2, , 2776-02 ####[facility] LABORATORYCLIA [id number] [place] [address] [place] Calcium [Mass/Vol] 8.8 mg/dL Normal 8.5-10.2 [facility] Comment on above: Order Comment: Speci men Type: BLOOD SPECIMENOrdering Facility: [facility] Address: [address] [place] [address] Performed By: #### 2 4321-2, , 2776-02 ####[facility] LABORATORYCLIA [id number] [place] [address] [place] Chloride [Moles/Vol] 109 mmol/L High 97-105 [facility] Comment on above: Order Comment: Speci men Type: BLOOD SPECIMENOrdering Facility: [facility] Address: [address] [place] [address] Performed By: #### 2 4321-2, , 2776-02 ####[facility] LABORATORYCLIA [id number] [place] [address] [place] CO2 [Moles/Vol] 21 mmol/L Low 22-30 [facility] Comment on above: Order Comment: Speci men Type: BLOOD SPECIMENOrdering Facility: [facility] Address: [address] [place] [address] Performed By: #### 2 4321-2, , 2776-02 ####[facility] LABORATORYCLIA [id number] [place] [address] [place] Creatinine [Mass/Vol] 0.75 mg/dL Normal 0.58-0.96 [facility] Comment on above: Order Comment: Speci men Type: BLOOD SPECIMENOrdering Facility: [facility] Address: [address] [place] [address] Performed By: #### 2 432-2, , 2776-02 ####[facility] LABORATORYCLIA [id number] [place] [address] [place] [facility] Creatinine and Glomerular filtration rate.predicted panel (S/P/Bld) 107 mL/min/1.73m??? Normal >=60 [facility] Comment on above: Order Comment: Specmichael marrero Type: BLOOD SPECIMENOrdering Facility: [facility] Address: [address] [place] [address] Result Comment: Jessica mated Glomerular Filtration Rate [...] Performed By: #### 2 4321-2, , 2776-02 ####[facility] LABORATORYCLIA [id number] [place] [address] [place] Glucose [Mass/Vol] 91 mg/dL Normal 74-99 [facility] Comment on above: Order Comment: Speci men Type: BLOOD SPECIMENOrdering Facility: [facility] Address: [address] [place], [place] [address] Result Comment: The [place] Diabetes [employer] (ADA) provides guidance for cutoff [...] Standards of Medical Care in Diabetes 2016, [place] [employer]. Diabetes Care. 2016.39(Suppl 1). Performed By: #### 2 4321-2, , 2776-02 ####[facility] LABORATORYCLIA [id number] [place] [address] [place] Potassium [Moles/Vol] 4.1 mmol/L Normal 3.7-5.1 [facility] Comment on above: Order Comment: Speci men Type: BLOOD SPECIMENOrdering Facility: [facility] Address: [address] [place] [address] Performed By: #### 2 4321-2, , 2776-02 ####[facility] LABORATORYCLIA [id number] [place] [address] [place] Sodium [Moles/Vol] 142 mmol/L Normal 136-144 [facility] Comment on above: Order Comment: Speci men Type: BLOOD SPECIMENOrdering Facility: [facility] Address: [address] [place], [place] [address] Performed By: #### 2 4321-2, , 2776-02 ####[facility] LABORATORYCLIA [id number] [place] [address] [place] Urea nitrogen [Mass/Vol] 6 mg/dL Low 7-21 [facility] Comment on above: Order Comment: Speci men Type: BLOOD SPECIMENOrdering Facility: [facility] Address: [address] [place] [address] Performed By: #### 2 4321-2, 61050-6, 2777-1 ####[facility] LABORATORYCLIA [id number] [place] [address] [place] CBC panel Auto (Bld)on 05-19 Erythrocyte distribution width (RBC) [Ratio] 12.9 % Normal 11.5-15.0 [facility] Comment on above: Order Comment: Speci men Type: BLOOD SPECIMENOrdering Facility: [facility] Address: [address] [place] [address] Performed By: #### 5 8410-2 ####[facility] LABORATORYCLIA [id number] [address] Hematocrit (Bld) [Volume fraction] 36.0 % Normal 36.0-46.0 [facility] Comment on above: Order Comment: Speci men Type: BLOOD SPECIMENOrdering Facility: [facility] Address: [address] [place] [address] Performed By: #### 5 8410-2 ####[facility] LABORATORYCLIA [id number] [address] [place] Hemoglobin (Bld) [Mass/Vol] 12.4 g/dL Normal 11.5-15.5 [facility] Comment on above: Order Comment: Speci men Type: BLOOD SPECIMENOrdering Facility: [facility] Address: [address] [place] [address] Performed By: #### 5 8410-2 ####[facility] LABORATORYCLIA [id number] [place] [address] [place] MCH (RBC) [Entitic mass] 30.8 pg Normal 26.0-34.0 [facility] Comment on above: Order Comment: Speci men Type: BLOOD SPECIMENOrdering Facility: [facility] Address: [address] [place] [address] Performed By: #### 5 8410-2 ####[facility] LABORATORYCLIA [id number] [address] [place] MCHC (RBC) [Mass/Vol] 34.4 g/dL Normal 30.5-36.0 [facility] Comment on above: Order Comment: Speci men Type: BLOOD SPECIMENOrdering Facility: [facility] Address: [address] [place] [address] Performed By: #### 5 8410-2 ####[facility] LABORATORYCLIA [id number] [place] [address] [place] MCV (RBC) [Entitic vol] 89.6 fL Normal 80.0-100.0 [facility] Comment on above: Order Comment: Speci men Type: BLOOD SPECIMENOrdering Facility: [facility] Address: [address] [place] [address] Performed By: #### 5 8410-2 ####[facility] LABORATORYCLIA [id number] [place] [address] [place] Nucleated RBC (Bld) [#/Vol] 10*3/uL Normal <0.01 [facility] Comment on above: Order Comment: Speci men Type: BLOOD SPECIMENOrdering Facility: [facility] Address: [address] [place] [address] Performed By: #### 5 8410-2 ####[facility] LABORATORYCLIA [id number] [place] [address] [place] Platelet mean volume (Bld) [Entitic vol] 11.4 fL Normal 9.0-12.7 [facility] Comment on above: Order Comment: Speci men Type: BLOOD SPECIMENOrdering Facility: [facility] Address: [address] [place] [address] Performed By: #### 5 8410-2 ####[facility] LABORATORYCLIA [id number] [place] [address] [place] Platelets (Bld) [#/Vol] 176 10*3/uL Normal 150-400 [facility] Comment on above: Order Comment: Speci men Type: BLOOD SPECIMENOrdering Facility: [facility] Address: [address] [place] [address] Performed By: #### 5 8410-2 ####[facility] LABORATORYCLIA [id number] [place] [address] [place] RBC (Bld) [#/Vol] 4.02 10*6/uL Normal 3.90-5.20 [facility] Comment on above: Order Comment: Speci men Type: BLOOD SPECIMENOrdering Facility: [facility] Address: [address] [place] [address] Performed By: #### 5 8410-2 ####[facility] LABORATORYCLIA [id number] [place] [address] [place] WBC (Bld) [#/Vol] 2.51 10*3/uL Low 3.70-11.00 [facility] Comment on above: Order Comment: Speci men Type: BLOOD SPECIMENOrdering Facility: [facility] Address: [address] [place] [address] Performed By: #### 5 8410-2 ####[facility] LABORATORYCLIA [id number] [place] [address] [place] HISTORY PHYSICALon HISTORY PHYSICAL Normal [facility] Magnesium SerPl-ncon 05-19 Magnesium [Mass/Vol] 1.9 mg/dL Normal 1.7-2.3 [facility] Comment on above: Order Comment: Speci men Type: BLOOD SPECIMENOrdering Facility: [facility] Address: [address] [place] [address] Performed By: #### 2 4321-2, 32001-2, 2777-1 ####[facility] LABORATORYCLIA [id number] [place] [address] [place] NURSING PROGon 05-20-2023 NURSING PROG Normal [facility] NURSING PROG Normal [facility] NURSING PROG Normal [facility] NUTRITIONon 05-20-2023 NUTRITION Normal [facility] Phosphate SerPl-mCncon 05-19 Phosphate [Mass/Vol] 3.8 mg/dL Normal 2.7-4.8 [facility] Comment on above: Order Comment: Speci men Type: BLOOD SPECIMENOrdering Facility: [facility] Address: [address] [place] [address] Performed By: #### 2 4321-2, 11168-7, 2777-1 ####[facility] LABORATORYCLIA [id number] [place] [address] [place] Upper GI endoscopyon 024 Upper GI endoscopy Normal [facility] XR ESOPHAGRAMon 05-20-2023 XR ESOPHAGRAM Normal [facility] Basic metabolic 2000 panelon 05-19-2023 Anion gap [Moles/Vol] 16 mmol/L Normal 9-18 [facility] Comment on above: Order Comment: Speci men Type: BLOOD SPECIMENOrdering Facility: [facility] Address: [facility] [place] [address] Performed By: #### 2 4321-2 ####[facility] LABORATORYCLIA [id number] [place] [address] [place] Calcium [Mass/Vol] 8.4 mg/dL Low 8.5-10.2 [facility] Comment on above: Order Comment: Speci men Type: BLOOD SPECIMENOrdering Facility: [facility] Address: [address] [place] [address] Performed By: #### 2 4321-2 ####[facility] LABORATORYCLIA [id number] [place] [address] [place] Chloride [Moles/Vol] 104 mmol/L Normal 97-105 [facility] Comment on above: Order Comment: Speci men Type: BLOOD SPECIMENOrdering Facility: [facility] Address: [address] [place] [address] Performed By: #### 2 4321-2 ####[facility] LABORATORYCLIA [id number] [place] [address] [place] CO2 [Moles/Vol] 15 mmol/L Low 22-30 [facility] Comment on above: Order Comment: Speci men Type: BLOOD SPECIMENOrdering Facility: [facility] Address: [address] [place] [address] Performed By: #### 2 4321-2 ####[facility] LABORATORYCLIA [id number] [place] [address] [place] Creatinine [Mass/Vol] 0.71 mg/dL Normal 0.58-0.96 [facility] Comment on above: Order Comment: Geraldo marrero Type: BLOOD SPECIMENOrdering Facility: [facility] Address: [address] [place] [address] Performed By: #### 2 4321-2 ####[facility] LABORATORYCLIA [id number] [place] [id number] [place] Creatinine and Glomerular filtration rate.predicted panel (S/P/Bld) 115 mL/min/1.73m??? Normal >=60 [facility] Comment on above: Order Comment: Geraldo elida Type: BLOOD SPECIMENOrdering Facility: [facility] Address: [address] [place] [address] Result Comment: Jessica mated Glomerular Filtration Rate [...] actual GFR. Performed By: #### 2 4321-2 ####[facility] LABORATORYCLIA [id number] [place] [id number] [place] Glucose [Mass/Vol] 73 mg/dL Low 74-99 [facility] [facility] Comment on above: Order Comment: Lyssamichael marrero Type: BLOOD SPECIMENOrdering Facility: [facility] Address: [address] [place] [address] Result Comment: The [place] [employer] (ADA) provides guidance for cutoff [...] Standards of Medical Care in Diabetes 2016, [place] [employer]. Diabetes Care. 2016.39(Suppl 1). Performed By: #### 2 4321-2 ####[facility] LABORATORYCLIA [id number] [place] [id number] [place] Potassium [Moles/Vol] 4.1 mmol/L Normal 3.7-5.1 [facility] Comment on above: Order Comment: Speci men Type: BLOOD SPECIMENOrdering Facility: [facility] Address: [address] [place] [address] Performed By: #### 2 4321-2 ####[facility] LABORATORYCLIA [id number] [place] [address] [place] Sodium [Moles/Vol] 135 mmol/L Low 136-144 [facility] Comment on above: Order Comment: Speci men Type: BLOOD SPECIMENOrdering Facility: [facility] Address: [address] [place] [address] Performed By: #### 2 4321-2 ####[facility] LABORATORYCLIA [id number] [place] [address] [place] Urea nitrogen [Mass/Vol] 8 mg/dL Normal 7-21 [facility] Comment on above: Order Comment: Speci men Type: BLOOD SPECIMENOrdering Facility: [facility] Address: [address] [place] [address] Performed By: #### 2 4321-2 ####[facility] LABORATORYCLIA [id number] [place] [id number] [place] CBC panel Auto (Bld)on 05-18 Erythrocyte distribution width (RBC) [Ratio] 12.6 % Normal 11.5-15.0 [facility] Comment on above: Order Comment: Speci men Type: BLOOD SPECIMENOrdering Facility: [facility] Address: [address] [place] [address] Performed By: #### 5 8410-2 ####[facility] LABORATORYCLIA [id number] [address] [place] Hematocrit (Bld) [Volume fraction] 33.3 % Low 36.0-46.0 [facility] Comment on above: Order Comment: Speci men Type: BLOOD SPECIMENOrdering Facility: [facility] Address: [address] [place] [address] Performed By: #### 5 8410-2 ####[facility] LABORATORYCLIA [id number] [place] [address] [place] Hemoglobin (Bld) [Mass/Vol] 11.2 g/dL Low 11.5-15.5 [facility] Comment on above: Order Comment: Speci men Type: BLOOD SPECIMENOrdering Facility: [facility] Address: [address] [place] [address] Performed By: #### 5 8410-2 ####[facility] LABORATORYCLIA [id number] [address] [place] MCH (RBC) [Entitic mass] 30.5 pg Normal 26.0-34.0 [facility] Comment on above: Order Comment: Speci men Type: BLOOD SPECIMENOrdering Facility: [facility] Address: [address] [place] [address] Performed By: #### 5 8410-2 ####[facility] LABORATORYCLIA [id number] [address] [place] MCHC (RBC) [Mass/Vol] 33.6 g/dL Normal 30.5-36.0 [facility] Comment on above: Order Comment: Speci men Type: BLOOD SPECIMENOrdering Facility: [facility] Address: [address] [place] [address] Performed By: #### 5 8410-2 ####[facility] LABORATORYCLIA [id number] [address] [place] MCV (RBC) [Entitic vol] 90.7 fL Normal 80.0-100.0 [facility] Comment on above: Order Comment: Speci men Type: BLOOD SPECIMENOrdering Facility: [facility] Address: [address] [place] [address] Performed By: #### 5 8410-2 ####[facility] LABORATORYCLIA [id number] [place] [address] [place] Nucleated RBC (Bld) [#/Vol] 10*3/uL Normal <0.01 [facility] Comment on above: Order Comment: Speci men Type: BLOOD SPECIMENOrdering Facility: [facility] Address: [address] [place] [address] Performed By: #### 5 8410-2 ####[facility] LABORATORYCLIA [id number] [place] [id number] [place] Platelet mean volume (Bld) [Entitic vol] 11.4 fL Normal 9.0-12.7 [facility] Comment on above: Order Comment: Speci men Type: BLOOD SPECIMENOrdering Facility: [facility] Address: [address] [place] [address] Performed By: #### 5 8410-2 ####[facility] LABORATORYCLIA [id number] [place] [address] [place] Platelets (Bld) [#/Vol] 150 10*3/uL Normal 150-400 [facility] Comment on above: Order Comment: Speci men Type: BLOOD SPECIMENOrdering Facility: [facility] Address: [address] [place] [address] Performed By: #### 5 8410-2 ####[facility] LABORATORYCLIA [id number] [place] [address] [place] RBC (Bld) [#/Vol] 3.67 10*6/uL Low 3.90-5.20 [facility] Comment on above: Order Comment: Speci men Type: BLOOD SPECIMENOrdering Facility: [facility] Address: [address] [place] [address] Performed By: #### 5 8410-2 ####[facility] LABORATORYCLIA [id number] [place] [id number] [place] WBC (Bld) [#/Vol] 3.57 10*3/uL Low 3.70-11.00 [facility] Comment on above: Order Comment: Speci men Type: BLOOD SPECIMENOrdering Facility: [facility] Address: [address] [place] [address] Performed By: #### 5 8410-2 ####[facility] LABORATORYCLIA [id number] [place] [address] [place] NURSING PROGon 05-19-2023 NURSING PROG Normal [facility] NURSING PROG Normal [facility] NURSING PROG Normal [facility] NUTRITIONon 05-19-2023 NUTRITION Normal [facility] Urinalysis complete panel (U )on 05-19-2023 Bacteria LM.HPF (Urine sed) [#/Area] Few Abnormal None Seen [facility] Comment on above: Order Comment: Speci men Type: URINE SPECIMENOrdering Facility: [facility] Address: [address] [place] [address] Performed By: #### 2 4356-8 ####[facility] LABORATORYCLIA [id number] [place] [address] [place] Bilirubin Ql (U) Negative Normal Negative [facility] Comment on above: Order Comment: Speci men Type: URINE SPECIMENOrdering Facility: [facility] Address: [address] [place] [address] Performed By: #### 2 4356-8 ####[facility] LABORATORYCLIA [id number] [place] [address] [place] Clarity (Unsp spec) Turbid Abnormal Clear [facility] Comment on above: Order Comment: Speci men Type: URINE SPECIMENOrdering Facility: [facility] Address: [address] [place] [address] Performed By: #### 2 4356-8 ####[facility] LABORATORYCLIA [id number] [place] [address] [place] Color (U) Yellow Normal Yellow [facility] Comment on above: Order Comment: Speci men Type: URINE SPECIMENOrdering Facility: [facility] Address: [address] [place] [address] Performed By: #### 2 4356-8 ####[facility] LABORATORYCLIA [id number] [place] [address] [place] Epithelial cells LM.HPF (Urine sed) [#/Area] Moderate Normal [facility] Comment on above: Order Comment: Speci men Type: URINE SPECIMENOrdering Facility: [facility] Address: [address] [place] [address] Performed By: #### 2 4356-8 ####[facility] LABORATORYCLIA [id number] [place] [address] [place] Glucose Test strip (U) [Mass/Vol] Negative Normal Trace, Negative [facility] Comment on above: Order Comment: Speci men Type: URINE SPECIMENOrdering Facility: [facility] Address: [address] [place] [address] Performed By: #### 2 4356-8 ####[facility] LABORATORYCLIA [id number] [place] [address] [place] Hemoglobin Ql (U) Trace Normal Negative, Trace Fa [facility] Comment on above: Order Comment: Speci men Type: URINE SPECIMENOrdering Facility: [facility] Address: [address] [place] [address] Performed By: #### 2 4356-8 ####[facility] LABORATORYCLIA [id number] [place] [address] [place] Ketones Ql (U) 2+ Abnormal Negative, Trace [facility] Comment on above: Order Comment: Speci men Type: URINE SPECIMENOrdering Facility: [facility] Address: [address] [place] [address] Performed By: #### 2 4356-8 ####[facility] LABORATORYCLIA [id number] [place] [address] [place] Leukocyte esterase Test strip Ql (U) 500 Aptito/uL Abnormal Negative, 25 Patito/uL [facility] Comment on above: Order Comment: Speci men Type: URINE SPECIMENOrdering Facility: [facility] Address: [address] [place] [address] Performed By: #### 2 4356-8 ####[facility] LABORATORYCLIA [id number] [place] [address] [place] Nitrite Ql (U) Negative Normal Negative [facility] Comment on above: Order Comment: Speci men Type: URINE SPECIMENOrdering Facility: [facility] Address: [address] [place] [address] Performed By: #### 2 4356-8 ####[facility] LABORATORYCLIA [id number] [place] [address] [place] pH (U) 6.0 [pH] Normal 5.0-8.0 [facility] Comment on above: Order Comment: Speci men Type: URINE SPECIMENOrdering Facility: [facility] Address: [address] [place] [address] Performed By: #### 2 4356-8 ####[facility] LABORATORYCLIA [id number] [place] [address] [place] Protein (U) [Mass/Vol] Negative Normal Trace, Negative [facility] Comment on above: Order Comment: Speci men Type: URINE SPECIMENOrdering Facility: [facility] Address: [address] [place] [address] Performed By: #### 2 4356-8 ####TREZ[facility] LABORATORYIA [id number] [place] [address] [place] RBC LM.HPF (Urine sed) [#/Area] /[HPF] Abnormal 0-3 /HPF [facility] Comment on above: Order Comment: Speci men Type: URINE SPECIMENOrdering Facility: [facility] Address: [address] [place] [address] Performed By: #### 2 4356-8 ####T[facility] LABORATORYIA [id number] [place] [id number] [place] Specific gravity (U) [Rel density] 1.012 Normal 1.005-1.030 [facility] Comment on above: Order Comment: Speci men Type: URINE SPECIMENOrdering Facility: [facility] Address: [address] [place] [address] Performed By: #### 2 4356-8 ####[facility] LABORATORYCLIA [id number] [place] [id number] [place] Urobilinogen Ql (U) Normal Normal Normal [facility] Comment on above: Order Comment: Speci men Type: URINE SPECIMENOrdering Facility: [facility] Address: [address] [place] [address] Performed By: #### 2 4356-8 ####[facility] LABORATORYCLIA [id number] [place] [id number] [place] WBC LM.HPF (Urine sed) [#/Area] /[HPF] Abnormal 0-5 /HPF [facility] Comment on above: Order Comment: Speci men Type: URINE SPECIMENOrdering Facility: [facility] Address: [address] [place] [address] Performed By: #### 2 4356-8 ####[facility] LABORATORYCLIA [id number] [place] [id number] [place] .Interpretation:on HCV Ab IA Ql Comment Invalid Interpretation Code [facility] Comment on above: Result Comment: Not infected with HCV unless early or acute infection issuspected (which may be delayed in an immunocompromisedindividual), or other evidence exists to indicate HCV infection.Performed at: [facility] [id number] [place], [place] [id number] PhD Cami Neri Performed By: #### 9 [id number], 63278413, 2060238, 0195588, [id number], 2858012, 4775606957, 4673540, 92513742 ####[facility] [address] [place] [address] 25(OH)D3 [facility] 2023 25-hydroxyvitamin D3 [Mass/Vol] 36.1 ng/mL Normal 31.0-80.0 [facility] Comment on above: Order Comment: Speci men Type: BLOOD SPECIMENOrdering Facility: [facility] Address: [address] [place] [address] Performed By: #### 1 989-3 ####[facility] LABCLIA [id number] [address] [place] Acute Hepatitis A B C Panelo n 05-18-2023 HAV IgM IA Ql Negative Invalid Interpretation Code Negative [facility] Comment on above: Performed By: #### 9 [id number], 43037388, 8964689, 9154717, 1522001200, 0534059, [id number], 0287043, 62744248 ####[facility] [address] [place] [address] HBV core IgM IA Ql Negative Invalid Interpretation Code Negative [facility] Comment on above: Performed By: #### 9 19989160, 42858655, 7413176, 6039061, 2235335834, 0276938, 0493812464, 6044365, 78270206 ####[facility] [address] [place] [address] HBV surface Ag IA Ql Negative Invalid Interpretation Code Negative [facility] Comment on above: Performed By: #### 9 95212355, 54766606, 6331809, 2782114, 3579570870, 3498950, 3528218776, 8002642, 87110819 ####[facility] [address] [place] [address] HCV IgG IA Ql Non-Reactive Invalid Interpretation Code Non Reactive [facility] Comment on above: Result Comment: Perf ormed at: [facility] [address] [id number] PhD Cami Neri Performed By: #### 9 52007307, 28634263, 7688830, 9964684, 1460560249, 8113988, 1660045378, 4054945, 02274587 ####[facility] [address] [place] [address] CBC W Auto Differential pane l (Bld)on 05-18-2023 Basophils (Bld) [#/Vol] 0.03 10*3/uL Normal <0.11 [facility] Comment on above: Order Comment: Speci men Type: BLOOD SPECIMENOrdering Facility: [facility] Address: [address] [place], [place] [address] Performed By: #### 5 7021-8 ####[facility] LABORATORYCLIA [id number] [place] [address] [place] Basophils/100 WBC (Bld) 0.6 % Normal [facility] Comment on above: Order Comment: Speci men Type: BLOOD SPECIMENOrdering Facility: [facility] Address: [address] [place] [address] Performed By: #### 5 7021-8 ####[facility] LABORATORYCLIA [id number] [place] [address] [place] Differential cell count method Nom (Bld) Auto Normal [facility] Comment on above: Order Comment: Speci men Type: BLOOD SPECIMENOrdering Facility: [facility] Address: [address] [place] [address] Performed By: #### 5 7021-8 ####[facility] LABORATORYCLIA [id number] [place] [address] [place] Eosinophils (Bld) [#/Vol] 0.06 10*3/uL Normal <0.46 [facility] Comment on above: Order Comment: Speci men Type: BLOOD SPECIMENOrdering Facility: [facility] Address: [address] [place] [address] Performed By: #### 5 7021-8 ####[facility] LABORATORYCLIA [id number] [place] [address] [place] Eosinophils/100 WBC (Bld) 1.3 % Normal [facility] Comment on above: Order Comment: Speci men Type: BLOOD SPECIMENOrdering Facility: [facility] Address: [address] [place] [address] Performed By: #### 5 7021-8 ####[facility] LABORATORYCLIA [id number] [place] [address] [place] Erythrocyte distribution width (RBC) [Ratio] 13.1 % Normal 11.5-15.0 [facility] Comment on above: Order Comment: Speci men Type: BLOOD SPECIMENOrdering Facility: [facility] Address: [address] [place] [address] Performed By: #### 5 7021-8 ####[facility] LABORATORYCLIA [id number] [place] [address] [place] Hematocrit (Bld) [Volume fraction] 43.5 % Normal 36.0-46.0 [facility] Comment on above: Order Comment: Speci men Type: BLOOD SPECIMENOrdering Facility: [facility] Address: [address] [place] [address] Performed By: #### 5 7021-8 ####[facility] LABORATORYCLIA [id number] [place] [address] [place] Hemoglobin (Bld) [Mass/Vol] 14.8 g/dL Normal 11.5-15.5 [facility] Comment on above: Order Comment: Speci men Type: BLOOD SPECIMENOrdering Facility: [facility] Address: [address] [place] [address] Performed By: #### 5 7021-8 ####[facility] LABORATORYCLIA [id number] [place] [address] [place] Immature granulocytes (Bld) [#/Vol] 10*3/uL Normal <0.10 [facility] Comment on above: Order Comment: Speci men Type: BLOOD SPECIMENOrdering Facility: [facility] Address: [address] [place] [address] Performed By: #### 5 7021-8 ####[facility] LABORATORYCLIA [id number] [place] [address] [place] Immature granulocytes/100 WBC (Bld) 0.2 % Normal [facility] Comment on above: Order Comment: Speci men Type: BLOOD SPECIMENOrdering Facility: [facility] Address: [address] [place] [address] Performed By: #### 5 7021-8 ####[facility] LABORATORYCLIA [id number] [place] [address] [place] Lymphocytes (Bld) [#/Vol] 1.27 10*3/uL Normal 1.00-4.00 [facility] Comment on above: Order Comment: Speci men Type: BLOOD SPECIMENOrdering Facility: [facility] Address: [address] [place] [address] Performed By: #### 5 7021-8 ####[facility] LABORATORYCLIA [id number] [place] [address] [place] Lymphocytes/100 WBC (Bld) 26.5 % Normal [facility] Comment on above: Order Comment: Speci men Type: BLOOD SPECIMENOrdering Facility: [facility] Address: [address] [place] [address] Performed By: #### 5 7021-8 ####[facility] LABORATORYCLIA [id number] [place] [address] [place] MCH (RBC) [Entitic mass] 30.4 pg Normal 26.0-34.0 [facility] Comment on above: Order Comment: Speci men Type: BLOOD SPECIMENOrdering Facility: [facility] Address: [address] [place] [address] Performed By: #### 5 7021-8 ####[facility] LABORATORYCLIA [id number] [address] [place] MCHC (RBC) [Mass/Vol] 34.0 g/dL Normal 30.5-36.0 [facility] Comment on above: Order Comment: Speci men Type: BLOOD SPECIMENOrdering Facility: [facility] Address: [address] [place] [address] Performed By: #### 5 7021-8 ####[facility] LABORATORYCLIA [id number] [place] [address] [place] MCV (RBC) [Entitic vol] 89.3 fL Normal 80.0-100.0 [facility] Comment on above: Order Comment: Speci men Type: BLOOD SPECIMENOrdering Facility: [facility] Address: [address] [place] [address] Performed By: #### 5 7021-8 ####[facility] LABORATORYCLIA [id number] [address] [place] Monocytes (Bld) [#/Vol] 0.26 10*3/uL Normal <0.87 [facility] Comment on above: Order Comment: Speci men Type: BLOOD SPECIMENOrdering Facility: [facility] Address: [address] [place] [address] Performed By: #### 5 7021-8 ####[facility] LABORATORYCLIA [id number] [place] [id number] [place] Monocytes/100 WBC (Bld) 5.4 % Normal [facility] Comment on above: Order Comment: Speci men Type: BLOOD SPECIMENOrdering Facility: [facility] Address: [address] [place] [address] Performed By: #### 5 7021-8 ####[facility] LABORATORYCLIA [id number] [place] [address] [place] Neutrophils (Bld) [#/Vol] 3.16 10*3/uL Normal 1.45-7.50 [facility] Comment on above: Order Comment: Speci men Type: BLOOD SPECIMENOrdering Facility: [facility] Address: [address] [place] [address] Performed By: #### 5 7021-8 ####[facility] LABORATORYCLIA [id number] [place] [address] [place] Neutrophils/100 WBC (Bld) 66.0 % Normal [facility] Comment on above: Order Comment: Speci men Type: BLOOD SPECIMENOrdering Facility: [facility] Address: [address] [place] [address] Performed By: #### 5 7021-8 ####[facility] LABORATORYCLIA [id number] [place] [address] [place] Nucleated RBC (Bld) [#/Vol] 10*3/uL Normal <0.01 [facility] Comment on above: Order Comment: Speci men Type: BLOOD SPECIMENOrdering Facility: [facility] Address: [address] [place] [address] Performed By: #### 5 7021-8 ####[facility]ORATORYCLIA [id number] [place] [address] [place] Nucleated RBC/100 WBC (Bld) [Ratio] 0.0 /100 WBC Normal [facility] Comment on above: Order Comment: Speci men Type: BLOOD SPECIMENOrdering Facility: [facility] Address: [address] [place] [address] Performed By: #### 5 7021-8 ####[facility] LABORATORYCLIA [id number] [place] [id number] [place] Platelet mean volume (Bld) [Entitic vol] 11.8 fL Normal 9.0-12.7 [facility] Comment on above: Order Comment: Speci men Type: BLOOD SPECIMENOrdering Facility: [facility] Address: [address] [place] [address] Performed By: #### 5 7021-8 ####[facility] LABORATORYCLIA [id number] [place] [address] [place] Platelets (Bld) [#/Vol] 226 10*3/uL Normal 150-400 [facility] Comment on above: Order Comment: Speci men Type: BLOOD SPECIMENOrdering Facility: [facility] Address: [address] [place] [address] Performed By: #### 5 7021-8 ####[facility] LABORATORYCLIA [id number] [place] [address] [place] RBC (Bld) [#/Vol] 4.87 10*6/uL Normal 3.90-5.20 [facility] Comment on above: Order Comment: Speci men Type: BLOOD SPECIMENOrdering Facility: [facility] Address: [address] [place] [address] Performed By: #### 5 7021-8 ####[facility] LABORATORYCLIA [id number] [place] [address] [place] WBC (Bld) [#/Vol] 4.79 10*3/uL Normal 3.70-11.00 [facility] Comment on above: Order Comment: Speci men Type: BLOOD SPECIMENOrdering Facility: [facility] Address: [address] [place] [address] Performed By: #### 5 7021-8 ####[facility] LABORATORYCLIA [id number] [place] [id number] [place] CNPNon 05-18-2023 [facility]N [facility]-18-2023 CONSULT Normal [facility] COPPER BLOODon 05-18-2023 Copper [Mass/Vol] 91 ug/dL Normal 80-155 [facility] Comment on above: Order Comment: Speci men Type: BLOOD SPECIMENOrdering Facility: [facility] Address: [address] [place] [address] Result Comment: This test was developed and its performance characteristics determined by [facility]'s Lucie Harmon [facility] [place] ([facility]). It has not been cleared or approved by the FDA. [facility] is regulated under CLIA as qualified to perform high-complexity testing. This test is used for clinical purposes. It should not be regarded as investigational or for research. Performed By: #### C OPPER ####[facility] LABCLIA [id number] [place] [address] [place] Comprehensive metabolic 2000 panelon 05-18-2023 Albumin [Mass/Vol] 4.7 g/dL Normal 3.9-4.9 [facility] Comment on above: Order Comment: Speci men Type: BLOOD SPECIMENOrdering Facility: [facility] Address: [address] [place] [address] Performed By: #### 3 040-3, , ####[facility]ORY[facility] [id number] [place] [id number] [place] ALP [Catalytic activity/Vol] 76 U/L Normal 34-123 [facility] Comment on above: Order Comment: Speci men Type: BLOOD SPECIMENOrdering Facility: [facility] Address: [address] [place] [address] Performed By: #### 3 040-3, , ####[facility]ATORYCLIA [id number] [place] [address] [place] ALT [Catalytic activity/Vol] 19 U/L Normal 7-38 [facility] Comment on above: Order Comment: Speci men Type: BLOOD SPECIMENOrdering Facility: [facility] Address: [address] [place] [address] Performed By: #### 3 040-3, , ####[facility] LABORATORYCLIA [id number] [place] [address] [place] Anion gap [Moles/Vol] 14 mmol/L Normal 9-18 [facility] Comment on above: Order Comment: Speci men Type: BLOOD SPECIMENOrdering Facility: [facility] Address: [address] [place] [address] Performed By: #### 3 040-3, , ####[facility] LABORATORYCLIA [id number] [place] [address] [place] AST [Catalytic activity/Vol] 42 U/L High 13-35 [facility] Comment on above: Order Comment: Speci men Type: BLOOD SPECIMENOrdering Facility: [facility] Address: [address] [place] [address] Performed By: #### 3 040-3, , ####[facility] LABORATORYCLIA [id number] [place] [address] [place] Bilirubin [Mass/Vol] 0.4 mg/dL Normal 0.2-1.3 [facility] Comment on above: Order Comment: Speci men Type: BLOOD SPECIMENOrdering Facility: [facility] Address: [address] [place] [address] Performed By: #### 3 040-3, , ####[facility] LABORATORYCLIA [id number] [place] [address] [place] Calcium [Mass/Vol] 9.2 mg/dL Normal 8.5-10.2 [facility] Comment on above: Order Comment: Speci men Type: BLOOD SPECIMENOrdering Facility: [facility] Address: [address] [place] [address] Performed By: #### 3 040-3, , ####[facility] LABORATORYCLIA [id number] [place] [address] [place] Chloride [Moles/Vol] 106 mmol/L High 97-105 [facility] Comment on above: Order Comment: Speci men Type: BLOOD SPECIMENOrdering Facility: [facility] Address: [address] [place] [id number] Performed By: #### 3 040-3, , ####[facility] LABORATORYCLIA [id number] [place] [address] [place] CO2 [Moles/Vol] 21 mmol/L Low 22-30 [facility] Comment on above: Order Comment: Speci men Type: BLOOD SPECIMENOrdering Facility: [facility] Address: [address] [place] [address] Performed By: #### 3 040-3, , ####[facility] LABORATORYCLIA [id number] [place] [address] [place] Creatinine [Mass/Vol] 0.82 mg/dL Normal 0.58-0.96 [facility] Comment on above: Order Comment: Speci men Type: BLOOD SPECIMENOrdering Facility: [facility] Address: [address] [place] [address] Performed By: #### 3 040-3, , ####[facility] LABORATORYCLIA [id number] [place] [address] [place] Creatinine and Glomerular filtration rate.predicted panel (S/P/Bld) 96 mL/min/1.73m??? Normal >=60 [facility] Comment on above: Order Comment: Speci men Type: BLOOD SPECIMENOrdering Facility: [facility] Address: [address] [place] [address] Result Comment: Jessica mated Glomerular Filtration Rate [...] GFR. Performed By: #### 3 040-3, , ####[facility] LABORATORYCLIA [id number] [place] [address] [place] Glucose [Mass/Vol] 79 mg/dL Normal 74-99 [facility] Comment on above: Order Comment: Speci men Type: BLOOD SPECIMENOrdering Facility: [facility] Address: [address] [place] [address] Result Comment: The [place] [employer] (ADA) provides guidance for cutoff [...] Standards of Medical Care in Diabetes 2016, [place] [employer]. Diabetes Care. 2016.39(Suppl 1). Performed By: #### 3 040-3, , ####[facility] LABORATORYCLIA [id number] [place] [address] [place] Potassium [Moles/Vol] 4.3 mmol/L Normal 3.7-5.1 [facility] Comment on above: Order Comment: Geraldo elida Type: BLOOD SPECIMENOrdering Facility: [facility] Address: [address] [place] [address] Performed By: #### 3 040-3, , ####[facility] LABORATORYCLIA [id number] [place] [address] [place] Protein [Mass/Vol] 7.4 g/dL Normal 6.3-8.0 [facility] Comment on above: Order Comment: Speci elida Type: BLOOD SPECIMENOrdering Facility: [facility] Address: [address] [place] [address] Performed By: #### 3 040-3, , ####[facility] LABORATORYCLIA [id number] [place] [address] [place] Sodium [Moles/Vol] 141 mmol/L Normal 136-144 [facility] Comment on above: Order Comment: Speci men Type: BLOOD SPECIMENOrdering Facility: [facility] Address: [address] [place] [address] Performed By: #### 3 040-3, , ####[facility] LABORATORYCLIA [id number] [place] [address] [place] Urea nitrogen [Mass/Vol] 7 mg/dL Normal 7-21 [facility] Comment on above: Order Comment: Speci men Type: BLOOD SPECIMENOrdering Facility: [facility] Address: [address] [place], [place] [address] Performed By: #### 3 040-3, , ####[facility] LABORATORYCLIA [id number] [place] [address] [place] Copper Lvlon 05-18-2023 Copper [Mass/Vol] 90 microgram/dL Invalid Interpretation Code 80-158 [facility] Comment on above: Result Comment: This test was developed and its performance characteristicsdetermined by [employer]. It has not been cleared or approvedby the Food and Drug Administration.Detection Limit = 5Performed at: Lab[address] [id number] MD Jhonathan Dai Performed By: #### 9 06759393, 93359104, 6364742, 3136776, [id number], 5216792, [id number], 5444744, 44120236 ####[facility] [address] [place] [address] ED PROV NOTEon 05-18-2023 ED PROV NOTE Normal [facility] Folate SerPl-mCncon 05-18-19 24 Folate [Mass/Vol] 10.3 ng/mL Normal >4.7 [facility] Comment on above: Order Comment: Speci men Type: BLOOD SPECIMENOrdering Facility: [facility] Address: [address] [place] [address] Performed By: #### 1 4338-8, 3034-6, 2284-8, 25191-9, 2132-9 ####[facility] LABCLIA [id number] [address] [address] [place] HIV Screen 4th Generation wR fxon 05-18-2023 HIV 1+2 Ab+HIV1 p24 Ag IA Ql Non-Reactive Invalid Interpretation Code Non Reactive [facility] Comment on above: Result Comment: HIV NegativeHIV-1/HIV-2 antibodies and HIV-1 p24 antigen were NOT detected.There is no laboratory evidence of HIV infection.Performed at: [facility] [place], [place] [id number] PhD Cami Neri Performed By: #### 9 38800553, 38484450, 1294252, 8608337, [id number], 7608027, [id number], 2128819, 87969871 ####[facility] [address] [place] [address] Iron and Iron binding capaci ty panelon 05-18-2023 Iron [Mass/Vol] 81 ug/dL Normal 41-186 [facility] Comment on above: Order Comment: Speci men Type: BLOOD SPECIMENOrdering Facility: [facility] Address: [address] [place] [address] Performed By: #### 1 4338-8, 3034-6, 2284-8, 97098-4, 2131-10 ####[facility] [id number] [address] [address] [place] Iron binding capacity [Mass/Vol] 292 ug/dL Normal 232-386 [facility] Comment on above: Order Comment: Speci men Type: BLOOD SPECIMENOrdering Facility: [facility] Address: [address] [place] [address] Performed By: #### 1 4338-8, 3034-6, 2284-8, 84412-1, 2131-10 ####[facility] LABIA [id number] [address] [address] [place] Iron/TIBC [Molar ratio] 27.7 % Normal 15.0-57.0 [facility] Comment on above: Order Comment: Speci men Type: BLOOD SPECIMENOrdering Facility: [facility] Address: [address] [place] [address] [place] [address] Performed By: #### 1 4338-8, 4-6, 2283-8, 27601-7, 2131-10 ####[facility] LABCLIA [id number] [address] [address] [place] Lipase SerPl-cCncon 05-18-19 24 Lipase [Catalytic activity/Vol] 37 U/L Normal 16-61 [facility] Comment on above: Order Comment: Speci men Type: BLOOD SPECIMENOrdering Facility: [facility] Address: [address] [place] [address] [place] [address] Performed By: #### 3 040-3, , ####[facility] LABORATORYCLIA [id number] [place] [address] [place] Magnesium SerPl-mCncon 05-17 Magnesium [Mass/Vol] 2.1 mg/dL Normal 1.7-2.3 [facility] Comment on above: Order Comment: Speci men Type: BLOOD SPECIMENOrdering Facility: [facility] Address: [address] [place] [address] Performed By: #### 3 040-3, , ####[facility] LABORATORYCLIA [id number] [place] [address] [place] NURSING PROGon 05-18-2023 NURSING PROG Normal [facility] Prealb SerPl-mCncon 05-18-19 24 Prealbumin [Mass/Vol] 13 mg/dL Low 17-36 [facility] Comment on above: Order Comment: Speci men Type: BLOOD SPECIMENOrdering Facility: [facility] Address: [address] [place] [address] Performed By: #### 1 4338-8, 3034-6, 4-8, 46413-9, 2131-10 ####[facility] LABCLIA [id number] [place] [id number] [place] Transferrin SerPl-mCncon Transferrin [Mass/Vol] 239 mg/dL Normal 200-360 [facility] Comment on above: Order Comment: Speci men Type: BLOOD SPECIMENOrdering Facility: [facility] Address: [address] [place] [address] Performed By: #### 1 4338-8, 3034-6, 2284-8, 29090-7, 2132-9 ####[facility] LABCLIA [id number] [facility] [place]34OTRWSFRQRDANIELLE [place] [id number] [place] VITAMIN B1 PLASMAon 05-18-19 24 VITAMIN B1, PLASMA 5 nmol/L Normal 4-15 [facility] Comment on above: Order Comment: [facility] Type: BLOOD SPECIMENOrdering Facility: [facility] Address: [address] [place] [address] Result Comment: INTE RPRETIVE DATA: Vitamin B1, PlasmaThiamine (vitamin B1) is reported. However, thiamine diphosphate(TDP), the biologically active form of thiamine, is not found inmeasurable concentrations in plasma, and is best determined inwhole blood specimens. Plasma thiamine concentration reflectsrecent intake rather than body stores.This test was developed and its performance characteristicsdetermined by [employer]. It has not been cleared orapproved by the [place] Food and Drug Administration. This test wasperformed in a CLIA certified laboratory and is intended forclinical purposes.Performed By: [employer] [place], [place] [address]Okwchkwemt Director: Kirt Murphy MD, PhDCLIA Number: [id number] Performed By: #### P VITB1 ####[facility] LABORATORIESIA [id number] [place] [address] VITAMIN B6/PYRIDOXINon 05-17 VITAMIN B6 39.1 nmol/L Normal 20.0-125.0 [facility] Comment on above: Order Comment: Speci men Type: BLOOD SPECIMENOrdering Facility: [facility] Address: [address] [place] [address] Result Comment: INTE RPRETIVE INFORMATION: Vitamin B6 (Pyridoxal 5-Phosphate)Pyridoxal 5'-phosphate measured in a specimen collected followingan 8-hour or overnight fast accurately indicates vitamin Y3exivodfkvuo status. Non-fasting specimen concentration reflectsrecent vitamin intake.This test was developed and its performance characteristicsdetermined by [employer]. It has not been cleared orapproved by the [place] Food and Drug Administration. This test wasperformed in a CLIA certified laboratory and is intended forclinical purposes.Performed By: [facility] [address] [place] [address]Qgtiurqjkh Director: Kirt Murphy MD, PhDCLIA Number: [id number] Performed By: #### V ITB6 ####[facility] [id number] [place] [address] Vit A SerPl-mCncon 4 Retinol [Mass/Vol] 0.17 mg/L Low 0.30-1.20 [facility] Comment on above: Order Comment: Speci elida Type: BLOOD SPECIMENOrdering Facility: [facility] Address: [address] [place] [address] Result Comment: This test was developed and its performance characteristics determined by [facility] [place] ([facility]). It has not been cleared or approved by the FDA. -[facility] is regulated under CLIA as qualified to perform high-complexity testing. This test is used for clinical purposes. It should not be regarded as investigational or for research. Performed By: #### 2 923-1 ####[facility] LABCLIA [id number] [place] [address] [place] Vit B12 SerPl-mCncon 024 Cobalamin (Vitamin B12) [Mass/Vol] 1155 pg/mL Normal 232-1245 [facility] Comment on above: Order Comment: Specmichael marrero Type: BLOOD SPECIMENOrdering Facility: [facility] Address: [address] [place] [address] Performed By: #### 1 4338-8, 3034-6, 2284-8, 92316-3, 2132-9 ####[facility] LABCLIA [id number] [address] [address] [place] ZINC, WHOLE BLOODon 05-18-19 24 ZINC, WHOLE BLOOD 670.6 ug/dL Normal 440.0-860.0 [facility] Comment on above: Order Comment: Speci men Type: BLOOD SPECIMENOrdering Facility: [facility] Address: [address] [place] [address] Result Comment: INTE RPRETIVE DATA: Zinc Quantitative, [...] was developed and its performance characteristicsdetermined by [employer]. It has not been cleared orapproved by the [place] Food and Drug Administration. This test wasperformed in a CLIA certified laboratory and is intended forclinical purposes.Performed By: [employer] [place], [place] [address]Cbyqgfczae Director: Kirt Murphy MD, PhDCLIA Number: [id number] Performed By: #### Z INCWB ####[facility]PITALIA [id number] [place] [address] CBC w/ Auto Diffon 4 Basophils/100 WBC (Bld) 0.7 % Normal 0.0-2.0 [facility] Comment on above: Performed By: #### 2 321961, 4258058, 1141234, 14826482 ####[facility] [address] [place] [address] Basophils/Leukocyte s Auto (Bld) [Pure # fraction] 0.0 E9/L Normal 0.0-0.2 [facility] Comment on above: Performed By: #### 2 543184, 7109439, 3018453, 61830030 ####[facility] [address] [place] [address] Eosinophils (Bld) [#/Vol] 0.1 E9/L Normal 0.0-0.5 [facility] Comment on above: Performed By: #### 2 415473, 1145332, 3279643, 21283644 ####[address] [address] Eosinophils/100 WBC (Bld) 1.9 % Normal 0.0-8.0 [facility] Comment on above: Performed By: #### 2 637775, 9551435, 1539679, 66734329 ####[address] [address] Erythrocyte distribution width (RBC) [Ratio] 14.1 % Normal 10.9-14.2 [facility] Comment on above: Performed By: #### 2 147708, 9408644, 2770537, 14814852 ####[address] [address] Hematocrit (Bld) [Volume fraction] 41.1 % Normal 34.0-46.0 [facility] Comment on above: Performed By: #### 2 678312, 8636432, 7595458, 49100939 ####[address] [address] Hemoglobin (Bld) [Mass/Vol] 13.7 g/dL Normal 12.0-16.0 [facility] Comment on above: Performed By: #### 2 587625, 2483149, 7342798, 04443473 ####[address] [address] Lymphocytes (Bld) [#/Vol] 1.4 E9/L Normal 1.0-4.0 [facility] Comment on above: Performed By: #### 2 969130, 9813641, 0547600, 16855406 ####[address] [address] Lymphocytes/100 WBC (Bld) 38.9 % Normal 14.0-50.0 [facility] Comment on above: Performed By: #### 2 109049, 4264147, 3122358, 28808156 ####[facility] [address] [place] [address] MCH (RBC) [Entitic mass] 29.8 pg Normal 27.0-34.0 [facility] Comment on above: Performed By: #### 2 321158, 8956166, 2777203, 34970630 ####[address] [address] MCHC (RBC) [Mass/Vol] 33.3 g/dL Normal 31.4-36.0 [facility] Comment on above: Performed By: #### 2 501737, 7053125, 4864356, 72891598 ####[address] [address] MCV (RBC) [Entitic vol] 89.5 fL Normal 80.0-100.0 [facility] Comment on above: Performed By: #### 2 369281, 3353313, 3810601, 30287890 ####[address] [address] Monocytes (Bld) [#/Vol] 0.2 E9/L Normal 0.2-1.0 [facility] Comment on above: Performed By: #### 2 625462, 9434082, 7645896, 47626167 ####[address] [address] Neutrophils (Bld) [#/Vol] 1.9 E9/L Low 2.0-7.5 [facility] Comment on above: Performed By: #### 2 932393, 6988961, 9769571, 87074299 ####[address] [address] Neutrophils/100 WBC (Bld) 52.6 % Normal 36.0-75.0 [facility] Comment on above: Performed By: #### 2 947488, 7208752, 6945177, 36784712 ####[address] [address] Platelet 195.0 E9/L Normal 150.0-500.0 [facility] Comment on above: Performed By: #### 2 443092, 0389521, 7486984, 58156464 ####[facility] [address] [place] [address] Platelet mean volume (Bld) [Entitic vol] 9.0 fL Normal 6.4-10.8 [facility] Comment on above: Performed By: #### 2 066520, 2824181, 4393937, 06333234 ####[facility] [address] [place] [address] RBC (Bld) [#/Vol] 4.6 E12/L Normal 4.3-5.9 [facility] Comment on above: Performed By: #### 2 759786, 0358575, 8638011, 84162865 ####[facility] [address] [place] [address] WBC corrected for nucl RBC Auto (Bld) [#/Vol] 3.6 E9/L Low 4.0-11.0 [facility] Comment on above: Performed By: #### 2 921140, 9838542, 5368916, 51884402 ####[facility] [address] [place] [address] CHEMISTRYOrdered By: SYSTEM SYSTEM on 05-17-2023 Albumin [...] 05-17-2023 Albumin [Mass/Vol] 4.5 g/dL Normal 3.3-5.0 [facility] Comment on above: Performed By: #### 2 847518, 7847568, 6874999, 10261788 ####[facility] [address] [place] [address] Albumin/Globulin (S) [Mass conc ratio] 1.6 Normal 1.1-2.2 [facility] Comment on above: Performed By: #### 2 999361, 4263761, 4117332, 54873823 ####[facility] [address] [place] [address] ALP [Catalytic activity/Vol] 61 Int._Unit/L Normal 21-98 [facility] Comment on above: Performed By: #### 2 820476, 5860163, 5458573, 57905276 ####[facility] [address] [place] [address] ALT No additional P-5'-P [Catalytic activity/Vol] 17 Int._Unit/L Normal 6-46 [facility] Comment on above: Performed By: #### 2 703180, 3456984, 1457163, 74965936 ####[facility] [address] [place] [address] Anion gap [Moles/Vol] 12 mmol/L Normal 6-16 [facility] Comment on above: Performed By: #### 2 654800, 3409743, 7482631, 63525262 ####[address] [address] AST [Catalytic activity/Vol] 30 Int._Unit/L Normal 5-43 [facility] Comment on above: Performed By: #### 2 407726, 7963904, 1910994, 24597030 ####[facility] [address] [place] [address] Bilirubin [Mass/Vol] 0.5 mg/dL Normal 0.0-1.1 [facility] Comment on above: Performed By: #### 2 665756, 1991013, 5716741, 90528119 ####[facility] [address] [place] [address] Calcium [Mass/Vol] 9.2 mg/dL Normal 8.9-11.1 [facility] Comment on above: Performed By: #### 2 162668, 7290292, 0397803, 29923000 ####[facility] [address] [place] [address] Chloride [Moles/Vol] 106 mmol/L Normal 101-111 [facility] Comment on above: Performed By: #### 2 561879, 7219742, 5846107, 41272354 ####[facility] [address] [place] [address] CO2 [Moles/Vol] 24 mmol/L Normal 21-31 [facility] Comment on above: Performed By: #### 2 347416, 5114506, 6967033, 51236144 ####[facility] [address] [place] [place] [address] Creatinine [Mass/Vol] 0.9 mg/dL Normal 0.5-1.3 [facility] Comment on above: Performed By: #### 2 208977, 4080753, 2887557, 41796557 ####[facility] [address] [place] [address] Globulin (S) [Mass/Vol] 2.9 g/dL Normal 1.4-4.0 [facility] Comment on above: Performed By: #### 2 714729, 9042739, 6802562, 17346989 ####[facility] [address] [place] [address] Glucose [Mass/Vol] 80 mg/dL Normal 55-199 [facility] Comment on above: Performed By: #### 2 463719, 9198609, 5340487, 01251051 ####[facility] [address] [place] [address] Potassium [Moles/Vol] 3.8 mmol/L Normal 3.5-5.3 [facility] Comment on above: Performed By: #### 2 509023, 2062468, 7693438, 51773785 ####[facility] [address] [address] Protein [Mass/Vol] 7.4 g/dL Normal 6.0-7.8 [facility] Comment on above: Performed By: #### 2 925859, 9520983, 7939989, 46994150 ####[facility] [address] [place] [address] Sodium [Moles/Vol] 138 mmol/L Normal 135-145 [facility] Comment on above: Performed By: #### 2 815978, 4099495, 6784802, 16975630 ####[facility] [address] [place] [address] Urea nitrogen [Mass/Vol] 6 mg/dL Normal 5-21 [facility] Comment on above: Performed By: #### 2 840802, 7945560, 0888034, 10244392 ####[facility] [address] [place] [address] Urea nitrogen/Creatinine [Mass ratio] 7 No Units Low 10-20 [facility] Comment on above: Performed By: #### 2 418691, 9008473, 0962927, 76715767 ####[facility] [address] [place] [address] Consent for Treatmenton Consent for Treatment [id number] 906#1.00TIFF Normal [facility] Discharge Instructionson Discharge Instructions [id number]#1.00TIFF Normal [facility] ED Clinical Summaryon 2023 ED Clinical Summary Normal [facility] ED Note-Physicianon 05-17-19 ED Note-Physician Normal [facility] Comment on above: Result Comment: Elec tronically Signed By: Tiffani Cunningham PA-C\.br\Date and Time Signed: 05/17/23 15:46 EDT\.br\Electronically Co-Signed By: Ashutosh Albright M.D..br\Date and Time Co-Signed: 05/17/23 17:49 EDT ED Patient Education Noteon 05-17-2023 ED Patient Education Note Normal [facility] ED Patient Summaryon 024 ED Patient Summary Normal [facility] HEMATOLOGYOrdered By: SYSTEM SYSTEM on 05-17-2023 [...] 05-17-2023 Magnesium [Mass/Vol] 2.1 mg/dL Normal 1.3-2.4 [facility] Comment on above: Performed By: #### 2 795853, 2542156, 5508016, 39122053 ####[facility] [address] [place] [address] Population Healthon 05-17-19 24 Population Health Normal [facility] Pre-Arrival Noteon 4 Pre-Arrival Note Normal [facility] eGFRon 05-17-2023 eGFR 86 mL/min/1.73 m2 Normal >=59 [facility] Comment on above: Order Comment: Order added by Discern Expert. Performed By: #### 2 298719, 7247749, 6423406, 04849152 ####[facility] [address] [place] [address] BMPon 05-14-2023 Anion gap [Moles/Vol] 8 mmol/L Normal 6-16 [facility] Comment on above: Performed By: #### 9 03421196, 79131438, 5919415, 1090260, 7399136667, 5029163, 6665613638, 5568313, 68570879 ####[facility] [address] [place] [address] Calcium [Mass/Vol] 8.6 mg/dL Low 8.9-11.1 [facility] Comment on above: Performed By: #### 9 89435334, 55714336, 3134175, 9251199, 0344152821, 3943617, 4779852786, 9711969, 01952514 ####[facility] [address] [place] [address] Chloride [Moles/Vol] 110 mmol/L Normal 101-111 [facility] Comment on above: Performed By: #### 9 35285461, 48520680, 5215413, 7557510, 8513757571, 7214399, 8380710908, 8331685, 25457847 ####[facility] [address] [place] [address] CO2 [Moles/Vol] 26 mmol/L Normal 21-31 [facility] Comment on above: Performed By: #### 9 75882798, 86609536, 7506545, 0889164, 0812462946, 2665644, 1460471956, 2347676, [id number] ####[address] [place] [address] Creatinine [Mass/Vol] 0.9 mg/dL Normal 0.5-1.3 [facility] Comment on above: Performed By: #### 9 73744410, 37864062, 0892036, 3614915, 9219772863, 1284898, 2409410551, 0080194, 71133392 ####[address] [place] [address] Glucose [Mass/Vol] 96 mg/dL Normal 55-199 [facility] Comment on above: Performed By: #### 9 71113140, 35516719, 3671850, 1974211, 9604256361, 3760625, 2277368686, 0762856, 06881043 ####[address] [address] Potassium [Moles/Vol] 4.0 mmol/L Normal 3.5-5.3 [facility] Comment on above: Performed By: #### 9 59451513, 33478580, 5025879, 5235616, 7303016442, 5773697, 3462485322, 5600429, 47078132 ####[address] [place] [address] Sodium [Moles/Vol] 140 mmol/L Normal 135-145 [facility] Comment on above: Performed By: #### 9 10960081, 72952708, 9509822, 5303392, 8430629104, 6022119, 9172623157, 8588315, 21140897 ####[facility] [place] [address] Urea nitrogen [Mass/Vol] 5 mg/dL Normal 5-21 [facility] Comment on above: Performed By: #### 9 83030304, 40555727, 4106229, 3668537, 1841331188, 2809568, 1312729608, 7467742, 05485371 ####[address] [place] [address] Urea nitrogen/Creatinine [Mass ratio] 6 No Units Low 10-20 [facility] Comment on above: Performed By: #### 9 02225001, 37283366, 1455614, 5531077, 9571641837, 5806369, 7832946904, 1117695, 30475314 ####[address] [address] CBC w/ Auto Diffon 4 Basophils/100 WBC (Bld) 1.4 % Normal 0.0-2.0 [facility] Comment on above: Performed By: #### 9 62876725, 87374757, 5933848, 6677790, 9114667757, 9010324, 0901778875, 7091733, 83953330 ####[address] [address] Basophils/Leukocyte s Auto (Bld) [Pure # fraction] 0.0 E9/L Normal 0.0-0.2 [facility] Comment on above: Performed By: #### 9 11610267, 52619077, 2064550, 6101846, 4032158600, 2223576, 8959336583, 0941957, 60432541 ####[address] [address] Eosinophils (Bld) [#/Vol] 0.1 E9/L Normal 0.0-0.5 [facility] Comment on above: Performed By: #### 9 84914944, 87774712, 2052936, 6651265, 4396870943, 2341895, 5299028897, 0762387, 50902159 ####[address] [place] [address] Eosinophils/100 WBC (Bld) 6.1 % Normal 0.0-8.0 [facility] Comment on above: Performed By: #### 9 38237617, 05566098, 2838599, 5007976, 8232266145, 2901561, 4005495068, 1487917, 16690988 ####[address] Erythrocyte distribution width (RBC) [Ratio] 14.4 % High 10.9-14.2 [facility] Comment on above: Performed By: #### 9 58617264, 40226287, 7294027, 7482521, 8060623634, 6493106, 5225818103, 8138571, 36360614 ####[address] [address] Hematocrit (Bld) [Volume fraction] 36.1 % Normal 34.0-46.0 [facility] Comment on above: Performed By: #### 9 96990833, 33544068, 4951744, 4269790, 2277731391, 9159791, 1832545780, 4258781, 25277836 ####[address] [address] Hemoglobin (Bld) [Mass/Vol] 12.2 g/dL Normal 12.0-16.0 [facility] Comment on above: Performed By: #### 9 72850652, 26617666, 4796050, 6061629, 1553755338, 6992570, 5972013055, 7404268, 12974086 ####[address] [address] Lymphocytes (Bld) [#/Vol] 1.1 E9/L Normal 1.0-4.0 [facility] Comment on above: Performed By: #### 9 33364774, 80353408, 4188050, 0624496, 4082975385, 3175526, 4534680643, 1476008, 79639275 ####[address] [place] [address] Lymphocytes/100 WBC (Bld) 51.0 % High 14.0-50.0 [facility] Comment on above: Performed By: #### 9 84697050, 91713878, 3709063, 6028384, 1570114387, 4698106, 8220745972, 2225821, 10024516 ####[address] [address] MCH (RBC) [Entitic mass] 30.3 pg Normal 27.0-34.0 [facility] Comment on above: Performed By: #### 9 88573071, 16920745, 5102458, 0357433, 4820922290, 2187761, 6131825147, 5074869, 32644967 ####[address] [address] MCHC (RBC) [Mass/Vol] 33.9 g/dL Normal 31.4-36.0 [facility] Comment on above: Performed By: #### 9 10402249, 48943973, 4746079, 2215713, 9863021433, 6674089, 4871481376, 8594833, 13901757 ####[address] [address] MCV (RBC) [Entitic vol] 89.3 fL Normal 80.0-100.0 [facility] Comment on above: Performed By: #### 9 90222040, 29498190, 2293063, 2067562, 9167461316, 2556118, 7573434064, 4270390, 65291786 ####[address] [address] Monocytes (Bld) [#/Vol] 0.1 E9/L Low 0.2-1.0 [facility] Comment on above: Performed By: #### 9 97855664, 33420800, 7127367, 9541545, 3718212341, 9488359, 9300332953, 0572609, 53704731 ####[address] [place] [address] Neutrophils (Bld) [#/Vol] 0.8 E9/L Low 2.0-7.5 [facility] Comment on above: Performed By: #### 9 04521781, 16289220, 7549255, 7402941, 6196702359, 4333995, 6284624283, 0183885, 72909695 ####[address] [address] Neutrophils/100 WBC (Bld) 36.8 % Normal 36.0-75.0 [facility] Comment on above: Performed By: #### 9 04773143, 76224690, 7997831, 4703377, 2150174829, 0544344, 2623497574, 4971269, 39411872 ####[address] [address] Platelet mean volume (Bld) [Entitic vol] 9.3 fL Normal 6.4-10.8 [facility] Comment on above: Performed By: #### 9 90055090, 55182437, 9504710, 9772167, 9628572737, 9267489, 8383716260, 2925848, 19350480 ####[address] [address] Platelets (Bld) [#/Vol] 167.0 E9/L Normal 150.0-500.0 [facility] Comment on above: Performed By: #### 9 55881785, 77780702, 9480657, 8138409, 5693301571, 0056929, 8513182498, 7207706, 98829850 ####[address] [address] RBC (Bld) [#/Vol] 4.0 E12/L Low 4.3-5.9 [facility] Comment on above: Performed By: #### 9 64659064, 27408085, 1177448, 7808721, 5364125353, 4178721, 2485067413, 6028886, 60795841 ####[facility] [address] [place] [address] WBC corrected for nucl RBC Auto (Bld) [#/Vol] 2.1 E9/L Low 4.0-11.0 [facility] Comment on above: Result Comment: Resu lts consistant with previous path review on 05/13/23, reviewed by [id number] Performed By: #### 9 17777692, 61921231, 0966930, 9341103, 6180425717, 7300560, 7975051410, 4996328, 18764253 ####[facility] [address] [place] [address] CHEMISTRYOrdered By: SYSTEM SYSTEM on 05-14-2023 Anion [...] Chem Consultation Noteon 05-14-19 Consultation Note Normal [facility] Comment on above: Result Comment: Elec tronically Signed By: Miguel JOHNSON, Jon Smith\.br\Date and Time Signed: 05/14/23 11:54 EDT Discharge Note-Nursingon Discharge Note-Nursing Invalid Interpretation Code [address] [place] [address] [place] [address]- \.br\ Wednesday 9:45 AM EDT \.br\ With: Nasim JONHSON, Rajni Ballesteros\.br\ [facility] Folateon 05-14-2023 Folate [Mass/Vol] 10.1 ng/mL Normal >=6.7 [facility] Comment on above: Performed By: #### 9 33423935, 97328633, 7467099, 3093328, 5515330554, 3003537, 2266680004, 9396942, 43951157 ####[facility] [address] [place] [address] HEMATOLOGYOrdered By: SYSTEM SYSTEM on 05-14-2023 Basophils/100 [...] previous path review on 05/13/23, reviewed by [id number] Inpatient Clinical Summaryon 05-14-2023 Inpatient Clinical Summary Normal [facility] Inpatient Patient Summaryon 05-14-2023 Inpatient Patient Summary Normal [facility] Interdisciplinary Note - Taz e Manageron 05-14-2023 Interdisciplinary Note - Customer Greeter Normal [facility] Comment on above: Result Comment: Elec tronically Signed By: Kera Diehl\.br\Date and Time Signed: 05/14/23 10:23 EDT IntraOperative Documentson 0 05-14-2023 IntraOperative Documents [id number] Normal [facility] Progress Note-Physicianon Progress Note-Physician Normal [facility] Comment on above: Result Comment: Elec tronically Signed By: Moncho Trejo DO.br\Date and Time Signed: 05/14/23 10:14 EDT Progress Note-Physician Normal [facility] Comment on above: Result Comment: Elec tronically Signed By: Kuldip Arcos Jr, DO.br\Date and Time Signed: 05/14/23 07:41 EDT Progress Note-Physician Normal [facility] Comment on above: Result Comment: Elec tronically Signed By: Kuldip Arcos Jr, DO.br\Date and Time Signed: 05/14/23 07:41 EDT Vit B12on 05-14-2023 Cobalamin (Vitamin B12) [Mass/Vol] 791 pg/mL Normal 50-1500 [facility] Comment on above: Performed By: #### 9 87800608, 83045082, 7866939, 7306851, 8413227573, 0934648, 7417096903, 1052187, 61677855 ####[facility] [address] [place] [address] eGFRon 05-14-2023 eGFR 86 mL/min/1.73 m2 Normal >=59 [facility] Comment on above: Order Comment: Order added by Discern Expert. Performed By: #### 9 11534608, 76956226, 6769620, 7161649, 3485370695, 8930782, 4490079940, 7645634, 04480882 ####[facility] [address] [place] [address] CBC w/ Auto Diffon 4 Basophils/100 WBC (Bld) 1.2 % Normal 0.0-2.0 [facility] Comment on above: Performed By: #### 2 191037, 0775744, 66052973, 76277982 ####[facility] [address] [place] [address] Basophils/Leukocyte s Auto (Bld) [Pure # fraction] 0.0 E9/L Normal 0.0-0.2 [facility] Comment on above: Performed By: #### 2 276276, 9948900, 41478373, 27177573 ####[address] [address] Eosinophils (Bld) [#/Vol] 0.1 E9/L Normal 0.0-0.5 [facility] Comment on above: Performed By: #### 2 417917, 0677412, 77054297, 10241879 ####[address] [address] Eosinophils/100 WBC (Bld) 4.7 % Normal 0.0-8.0 [facility] Comment on above: Performed By: #### 2 606587, 4216645, 19821552, 55032103 ####[address] Erythrocyte distribution width (RBC) [Ratio] 14.3 % High 10.9-14.2 [facility] Comment on above: Performed By: #### 2 437603, 7593520, 91117034, 87803590 ####[address] Hematocrit (Bld) [Volume fraction] 37.1 % Normal 34.0-46.0 [facility] Comment on above: Performed By: #### 2 430014, 5755507, 07038235, 07217411 ####[address] [address] Hemoglobin (Bld) [Mass/Vol] 12.5 g/dL Normal 12.0-16.0 [facility] Comment on above: Performed By: #### 2 943650, 9540058, 61596263, 67888794 ####[address] [address] Lymphocytes (Bld) [#/Vol] 1.1 E9/L Normal 1.0-4.0 [facility] Comment on above: Performed By: #### 2 683208, 0288775, 49024305, 98307001 ####[address] [address] Lymphocytes/100 WBC (Bld) 53.2 % High 14.0-50.0 [facility] Comment on above: Performed By: #### 2 445475, 8322048, 34325738, 89241381 ####[address] [address] MCH (RBC) [Entitic mass] 30.1 pg Normal 27.0-34.0 [facility] Comment on above: Performed By: #### 2 086817, 8860957, 17592577, 76657195 ####[address] [address] MCHC (RBC) [Mass/Vol] 33.6 g/dL Normal 31.4-36.0 [facility] Comment on above: Performed By: #### 2 751993, 7151016, 44986480, 22291243 ####[address] [address] MCV (RBC) [Entitic vol] 89.4 fL Normal 80.0-100.0 [facility] Comment on above: Performed By: #### 2 976975, 7901837, 66588121, 26877513 ####[address] [address] Monocytes (Bld) [#/Vol] 0.1 E9/L Low 0.2-1.0 [facility] Comment on above: Performed By: #### 2 213345, 3458187, 44969689, 50751926 ####[address] [address] Neutrophils (Bld) [#/Vol] 0.7 E9/L Low 2.0-7.5 [facility] Comment on above: Performed By: #### 2 444518, 1326227, 81007538, 53071259 ####[address] [place] [address] Neutrophils/100 WBC (Bld) 34.6 % Low 36.0-75.0 [facility] Comment on above: Performed By: #### 2 752644, 7913843, 84343845, 74063984 ####[address] [address] Platelet 168.0 E9/L Normal 150.0-500.0 [facility] Comment on above: Performed By: #### 2 760151, 3729479, 26637132, 97706546 ####[address] [address] Platelet mean volume (Bld) [Entitic vol] 9.1 fL Normal 6.4-10.8 [facility] Comment on above: Performed By: #### 2 180711, 9536248, 37631049, 30831623 ####[address] [address] RBC (Bld) [#/Vol] 4.1 E12/L Low 4.3-5.9 [facility] Comment on above: Performed By: #### 2 262071, 5714701, 42715093, 22833826 ####[address] [address] WBC corrected for nucl RBC Auto (Bld) [#/Vol] 2.0 E9/L Abnormal 4.0-11.0 [facility] Comment on above: Result Comment: Resu lts called to JACKSON MARROQUIN by and read back on 05/13/2023 07:20:49.Critical Result Verified by Repeat AnalysisSlide review performed Performed By: #### 2 520122, 8345717, 46606210, 82890159 ####[address] [address] CHEMISTRYOrdered By: SYSTEM SYSTEM on 05-13-2023 Albumin [...] 05-13-2023 Albumin [Mass/Vol] 3.9 g/dL Normal 3.3-5.0 [facility] Comment on above: Performed By: #### 2 381475, 3018754, 03940828, 04455054 ####[facility] [address] [place] [address] Albumin/Globulin (S) [Mass conc ratio] 1.6 Normal 1.1-2.2 [facility] Comment on above: Performed By: #### 2 759254, 3455152, 94502662, 71112255 ####[facility] [address] [place] [address] ALP [Catalytic activity/Vol] 49 Int._Unit/L Normal 21-98 [facility] Comment on above: Performed By: #### 2 729627, 3975954, 79158535, 60804274 ####[facility] [address] [place] [address] ALT No additional P-5'-P [Catalytic activity/Vol] 12 Int._Unit/L Normal 6-46 [facility] Comment on above: Performed By: #### 2 174791, 1035400, 23858333, 79082157 ####[facility] [address] [place] [address] Anion gap [Moles/Vol] 9 mmol/L Normal 6-16 [facility] Comment on above: Performed By: #### 2 948573, 1504335, 64840429, 44314386 ####[facility] [address] [place] [address] AST [Catalytic activity/Vol] 23 Int._Unit/L Normal 5-43 [facility] Comment on above: Performed By: #### 2 997020, 6673874, 86472442, 37046708 ####[facility] [address] [place] [address] Bilirubin [Mass/Vol] 0.4 mg/dL Normal 0.0-1.1 [facility] Comment on above: Performed By: #### 2 836025, 8082389, 59883379, 94690063 ####[facility] [address] [place] [address] Calcium [Mass/Vol] 8.4 mg/dL Low 8.9-11.1 [facility] Comment on above: Performed By: #### 2 627738, 2126919, 43514169, 51453127 ####[facility] [address] [place] [address] Chloride [Moles/Vol] 111 mmol/L Normal 101-111 [facility] Comment on above: Performed By: #### 2 631752, 5331689, 04663461, 43825812 ####[facility] [address] [place] [address] CO2 [Moles/Vol] 24 mmol/L Normal 21-31 [facility] Comment on above: Performed By: #### 2 678565, 3307445, 67542446, 56985789 ####[facility] [address] [place] [address] Creatinine [Mass/Vol] 0.7 mg/dL Normal 0.5-1.3 [facility] Comment on above: Performed By: #### 2 876206, 2281441, 53562813, 81676714 ####[facility] [address] [place] [address] Globulin (S) [Mass/Vol] 2.5 g/dL Normal 1.4-4.0 [facility] Comment on above: Performed By: #### 2 430854, 5490665, 54078275, 76582269 ####[facility] [address] [place] [address] Glucose [Mass/Vol] 84 mg/dL Normal 55-199 [facility] Comment on above: Performed By: #### 2 667768, 8849724, 83347667, 47121965 ####[facility] [address] [place] [address] Potassium [Moles/Vol] 3.7 mmol/L Normal 3.5-5.3 [facility] Comment on above: Performed By: #### 2 432211, 5821449, 45072328, 32958899 ####[facility] [address] [place] [address] Protein [Mass/Vol] 6.4 g/dL Normal 6.0-7.8 [facility] Comment on above: Performed By: #### 2 118862, 2742181, 52356664, 07872155 ####[facility] [address] [place] [address] Sodium [Moles/Vol] 140 mmol/L Normal 135-145 [facility] Comment on above: Performed By: #### 2 904828, 7831755, 89121207, 70814708 ####[facility] [address] [place] [address] Urea nitrogen [Mass/Vol] 7 mg/dL Normal 5-21 [facility] Comment on above: Performed By: #### 2 875398, 5681438, 61907409, 22151027 ####[facility] [address] [place] [address] Urea nitrogen/Creatinine [Mass ratio] 10 No Units Normal 10-20 [facility] Comment on above: Performed By: #### 2 314535, 8321270, 90627421, 56554184 ####[facility] [address] [place] [address] Consenton 05-13-2023 Consent [id number] [id number] Normal [facility] Consultation Noteon 05-13-19 24 Consultation Note Normal [facility] Comment on above: Result Comment: Elec [...] reticulocytes. Leukocytopenia with reactive lymphocytes and monocytes.CPT 35232 Invalid Interpretation Code [facility] HemeManSS Interdisciplinary Note - Taz e Manageron 05-13-2023 Interdisciplinary Note - Customer Greeter Normal [facility] Comment on above: Result Comment: Elec tronically Signed By: Kera Diehl\.br\Date and Time Signed: 05/13/23 13:46 EDT Main OR Intraoperative Recor don 05-13-2023 Main OR Intraoperative Record Normal [facility] Oncology Progress Noteon Oncology Progress Note Normal [facility] Path. Reviewon 05-13-2023 Path Review Anemia with no increase of reticulocytes. Leukocytopenia with reactive lymphocytes and monocytes. Invalid Interpretation Code [facility] Comment on above: Order Comment: Order added by Discern Expert Performed By: #### 2 231921, 2369229, 59852084, 74820849 ####[facility] [address] [place] [address] Progress Note-Physicianon Progress Note-Physician Normal [facility] Comment on above: Result Comment: Elec tronically Signed By: Moncho Trejo DO\.br\Date and Time Signed: 05/13/23 10:43 EDT eGFRon 05-13-2023 eGFR 116 mL/min/1.73 m2 Normal >=59 [facility] Comment on above: Order Comment: Order added by Discern Expert. Performed By: #### 2 376558, 5829352, 33900952, 06607338 ####[facility] [address] [place] [address] B hCG Qualon 05-12-2023 Beta HCG ( test) Ql Negative Normal [facility] Comment on above: Performed By: #### 1 9785234, 6962504, 79540611, 0046278, 8563741, 22254374, 39904842, 3387759 ####[address] [place] [address] BMPOrdered By: SYSTEM SYSTEM on 05-12-2023 Anion gap [Moles/Vol] 11 mmol/L Normal 6-16 [facility] Comment on above: Performed By: #### 1 3119282, 9227689, 82896199, 6879273, 9333651, 52124520, 95327756, 7028437 ####[address] [place] [address] Calcium [Mass/Vol] 9.0 mg/dL Normal 8.9-11.1 [facility] Comment on above: Performed By: #### 1 8533245, 9672707, 53678385, 7587713, 4925968, 11653102, 91684978, 5843557 ####[address] [address] Chloride [Moles/Vol] 105 mmol/L Normal 101-111 [facility] Comment on above: Performed By: #### 1 0931425, 8107986, 83884971, 0442098, 9037586, 01753202, 65189965, 3400495 ####[address] [address] CO2 [Moles/Vol] 25 mmol/L Normal 21-31 [facility] Comment on above: Performed By: #### 1 3169651, 3526479, 39258632, 8453117, 5237959, 33494785, 35340080, 1313695 ####[address] [address] Creatinine [Mass/Vol] 1.0 mg/dL Normal 0.5-1.3 [facility] Comment on above: Performed By: #### 1 1217331, 0823470, 84194770, 1198405, 4008455, 89965223, 08471961, 8520974 ####[address] [address] Glucose [Mass/Vol] 94 mg/dL Normal 55-199 [facility] Comment on above: Performed By: #### 1 9915925, 6391147, 95435136, 5518741, 7305786, 43822353, 97195402, 6443621 ####[address] [place] [address] Potassium [Moles/Vol] 3.9 mmol/L Normal 3.5-5.3 [facility] Comment on above: Performed By: #### 1 0140153, 4777151, 63691447, 2365778, 9076905, 89182313, 61793687, 7901850 ####[address] [place] [address] Sodium [Moles/Vol] 137 mmol/L Normal 135-145 [facility] Comment on above: Performed By: #### 1 7285451, 4785998, 27996859, 1794128, 0458668, 30885739, 92308704, 6154814 ####[address] [address] Urea nitrogen [Mass/Vol] 10 mg/dL Normal 5-21 [facility] Comment on above: Performed By: #### 1 5472682, 5072755, 72294542, 9966742, 9798572, 35862386, 04849527, 0074069 ####[address] [address] BMPon 05-12-2023 Urea nitrogen/Creatinine [Mass ratio] 10 No Units Normal 10-20 [facility] Comment on above: Performed By: #### 1 2529799, 2920868, 65728003, 6051975, 5519595, 96448309, 11465768, 7247495 ####[address] [address] CBC w/ Auto DiffOrdered By: SYSTEM SYSTEM on 05-12-2023 Basophils/100 WBC (Bld) 0.9 % Normal 0.0-2.0 [facility] Comment on above: Performed By: #### 1 6607659, 1198058, 05063119, 7639156, 2944601, 27542527, 78332036, 9989372 ####[place] [address] [address] Basophils/Leukocyte s Auto (Bld) [Pure # fraction] 0.0 E9/L Normal 0.0-0.2 [facility] Comment on above: Performed By: #### 1 8763775, 2052679, 28671156, 0335961, 3278432, 20929263, 40997316, 3201259 ####[address] [address] Eosinophils (Bld) [#/Vol] 0.1 E9/L Normal 0.0-0.5 [facility] Comment on above: Performed By: #### 1 6614597, 9691448, 46895202, 5906859, 8947254, 66802640, 92010504, 1356282 ####[place] [address] [address] Eosinophils/100 WBC (Bld) 2.3 % Normal 0.0-8.0 [facility] Comment on above: Performed By: #### 1 5148450, 1377397, 86071956, 7652481, 9021291, 32313767, 81183091, 5542764 ####[place] [address] [address] Erythrocyte distribution width (RBC) [Ratio] 14.3 % High 10.9-14.2 [facility] Comment on above: Performed By: #### 1 8137680, 6360932, 67385875, 4342776, 9441315, 33169987, 18746754, 9572329 ####[address] [address] Hematocrit (Bld) [Volume fraction] 39.8 % Normal 34.0-46.0 [facility] Comment on above: Performed By: #### 1 0841494, 4886739, 27914813, 4108322, 6397133, 86391881, 42967869, 9932882 ####[place] [address] [address] Hemoglobin (Bld) [Mass/Vol] 13.5 g/dL Normal 12.0-16.0 [facility] Comment on above: Performed By: #### 1 9904090, 1566699, 32329857, 0963492, 1498276, 04880669, 91605173, 4821797 ####[place] [address] [address] Lymphocytes (Bld) [#/Vol] 1.3 E9/L Normal 1.0-4.0 [facility] Comment on above: Performed By: #### 1 6057479, 6196354, 98916738, 8158895, 4369447, 87703740, 02894789, 2946295 ####[place] [address] [address] Lymphocytes/100 WBC (Bld) 46.0 % Normal 14.0-50.0 [facility] Comment on above: Performed By: #### 1 3344983, 9007774, 40777289, 3635365, 7710394, 78340705, 96028758, 4761868 ####[address] [address] MCH (RBC) [Entitic mass] 30.2 pg Normal 27.0-34.0 [facility] Comment on above: Performed By: #### 1 2896386, 7138612, 29472862, 8385087, 7420970, 74511430, 92908992, 5784995 ####[address] [address] MCHC (RBC) [Mass/Vol] 34.0 g/dL Normal 31.4-36.0 [facility] Comment on above: Performed By: #### 1 5045838, 9859387, 09088627, 0792578, 9627794, 89748268, 02985818, 8212874 ####[place] [address] [address] MCV (RBC) [Entitic vol] 88.8 fL Normal 80.0-100.0 [facility] Comment on above: Performed By: #### 1 3490473, 0585985, 89329098, 1714498, 7058090, 62803716, 08124655, 0833813 ####[place] [address] [address] Monocytes (Bld) [#/Vol] 0.2 E9/L Normal 0.2-1.0 [facility] Comment on above: Performed By: #### 1 5841600, 7369577, 09045011, 3369929, 9964303, 91796187, 31605492, 3690731 ####[place] [address] [address] [address] Neutrophils (Bld) [#/Vol] 1.2 E9/L Low 2.0-7.5 Remisol Heme Comment on above: Performed By: #### 1 [id number], 7205431, [id number], 0462574, 3896713, 11119127, 16573093, 0389970 ####[place] [id number] Neutrophils/100 WBC (Bld) 42.5 % Normal 36.0-75.0 Remisol Heme Comment on above: Performed By: #### 1 [id number], 6965472, 62640557, 1641394, 7316113, 99504708, 32719420, 7497209 ####[place] [address] [address] Platelet mean volume (Bld) [Entitic vol] 9.0 fL Normal 6.4-10.8 Remisol Heme Comment on above: Performed By: #### 1 [id number], 2483668, 68861619, 8766690, 0791350, 59960958, [id number], 0905856 ####[place] [address] [address] Platelets (Bld) [#/Vol] 179.0 E9/L Normal 150.0-500.0 [facility]e Comment on above: Performed By: #### 1 3353265, 4698436, 13213809, 6455290, 7413417, 20644902, 89669665, 3907912 ####[place] [facility] [address] [place] [address] RBC (Bld) [#/Vol] 4.5 E12/L Normal 4.3-5.9 [facility] Heme Comment on above: Performed By: #### 1 7081243, 3499410, 58972701, 3648820, 2513039, 33122257, 87800964, 6920911 ####[place] [facility] [address] [place] [address] WBC corrected for nucl RBC Auto (Bld) [#/Vol] 2.8 E9/L Low 4.0-11.0 [facility] Heme Comment on above: Performed By: #### 1 4873080, 8434092, 49475393, 5382390, 0087731, 04022051, 11641637, 9805764 ####[place] [facility] [address] [place] [address] CHEMISTRYOrdered By: SYSTEM SYSTEM on 05-12-2023 Albumin/Globulin [...] Sensitivity Troponin I Instructions For Use, Alan Biddeford, September 2017) Urea nitrogen/Creatinine [Mass ratio] 10 mg/mg Normal 10 - 20 Remisol Chem COAGULATIONOrdered By: Shannon Chappell on 05-12-2023 aPTT Coag (PPP) [Time] 34.7 s Normal 25.1 - 36.5 second(s) [facility] Auto Coag Comment on above: Interpretive Data: P jeradmeter 15 days - 4 weeks 1 - [...] the same coagulation reagent and instrumentation as [facility]. Currently there are no coagulation studies available worldwide for children to 14 days, and no normal ranges. Heparin therapeutic range (represented by Anti-Factor Xa activity of 0.2 - 0.4 U/mL) corresponds to PTT of 56.6 - 109.0 sec. PT Coag (PPP) [Time] 13.1 s High 9.4 - 12.5 second(s) [facility] Auto Coag Comment on above: Interpretive Data: [...] the same coagulation reagent and instrumentation as [facility]. Currently there are no coagulation studies available worldwide for children to 14 days, and no normal ranges. Consent for Treatmenton 04-16 Consent for Treatment [id number] 68#1.00TIFF Normal [facility] Consultation Noteon 05-12-19 Consultation Note Normal [facility] Comment on above: Result Comment: Elec tronically Signed By: Jon Rivera MD\.br\Date and Time Signed: 05/12/23 15:42 EDT ED Clinical Summaryon 2023 ED Clinical Summary Normal [facility] ED Note-Physicianon 05-12-19 ED Note-Physician Normal [facility] Comment on above: Result Comment: Elec tronically Signed By: Mauricio López PA-C\.br\Date and Time Signed: 05/12/23 12:06 EDT\.br\Electronically Co-Signed By: Mateusz Garcia DO\.br\Date and Time Co-Signed: 05/12/23 12:48 EDT ED Patient Education Noteon 05-12-2023 ED Patient Education Note Normal [facility] ED Patient Summaryon 024 ED Patient Summary Normal [facility] Endoscopic Procedure Report - Otheron 05-12-2023 Endoscopic Procedure Report - Other Normal [facility] Comment on above: Result Comment: Elec tronically Signed By: Jon Rivera MD\.br\Date and Time Signed: 05/12/23 15:48 EDT Other Comment: Ramya jordan Attachment - attachment storage system not supported [id number] Can be viewed in source systemMissing Attachment - attachment storage system not supported [id number] Can be viewed in source systemMissing Attachment - attachment storage system not supported [id number] Can be viewed in source systemMissing Attachment - attachment storage system not supported [id number] Can be viewed in source systemMissing Attachment - attachment storage system not supported [id number] Can be viewed in source systemMissing Attachment - attachment storage system not supported 0640539 Can be viewed in source systemMissing Attachment - attachment storage system not supported [id number] Can be viewed in source systemMissing Attachment - attachment storage system not supported [id number] Can be viewed in source systemMissing Attachment - attachment storage system not supported 1573130 Can be viewed in source system HEMATOLOGYOrdered By: SYSTEM SYSTEM on 05-12-2023 Monocytes/100 WBC (Bld) 8.3 % Normal 4.0 - 14.0 % [facility] Hem[facility] Hep Func PanelOrdered By: [employer] SYSTEM on 05-12-2023 Albumin [Mass/Vol] 4.3 g/dL Normal 3.3-5.0 Remiso l Chem Comment on above: Performed By: #### 1 4155673, 9037414, 94843480, 8644320, 3802610, 50826334, 46275613, 8662346 ####[address] [place] [address] Bilirubin [Mass/Vol] 0.4 mg/dL Normal 0.0-1.1 [facility] Chem Comment on above: Performed By: #### 1 1781490, 3762946, 88555192, 4419045, 2819561, 73844612, 20376730, 0356820 ####[address] [address] Bilirubin.direct [Mass/Vol] 0.1 mg/dL Normal 0.0-0.4 [facility] Chem Comment on above: Performed By: #### 1 4143139, 0850515, 06538230, 6989101, 6327178, 15968669, 83480440, 0385577 ####[address] [address] Bilirubin.indirect [Mass or moles/Vol] 0.3 mg/dL Normal 0.1-0.9 [facility] Comment on above: Performed By: #### 1 5138172, 2975322, 69958366, 1989373, 8322105, 63955050, 91127163, 5156893 ####[address] [address] Globulin (S) [Mass/Vol] 2.3 g/dL Normal 1.4-4.0 [facility] Comment on above: Performed By: #### 1 9507090, 1129766, 88648502, 4402613, 4509606, 18310427, 12217304, 5134838 ####[address] [place] [address] Protein [Mass/Vol] 6.6 g/dL Normal 6.0-7.8 Remiso l Chem Comment on above: Performed By: #### 1 1429466, 0132862, 59791560, 1972671, 8383167, 47908681, 93769719, 9270190 ####[address] [place] [address] Hep Func Panelon 05-12-2023 Albumin/Globulin (S) [Mass conc ratio] 1.9 Normal 1.1-2.2 [facility] Comment on above: Performed By: #### 1 4578265, 1507262, 19634942, 3949917, 4587242, 70373732, 03685481, 6640161 ####[address] [place] [address] ALP [Catalytic activity/Vol] 58 Int._Unit/L Normal 21-98 [facility] Comment on above: Performed By: #### 1 9787488, 4676628, 60031127, 4458820, 8952487, 80831966, 36734383, 3848571 ####[address] [place] [address] ALT No additional P-5'-P [Catalytic activity/Vol] 14 Int._Unit/L Normal 6-46 [facility] Comment on above: Performed By: #### 1 0841802, 8230853, 49991655, 2579153, 6823645, 98996190, 25375297, 3236370 ####[address] [place] [address] AST [Catalytic activity/Vol] 26 Int._Unit/L Normal 5-43 [facility] Comment on above: Performed By: #### 1 4159576, 5521488, 50833149, 0502659, 2627567, 72571421, 30993888, 3061699 ####[address] [place] [address] Interdisciplinary Note - Taz e Manageron 05-12-2023 Interdisciplinary Note - Customer Greeter Normal [facility] Comment on above: Result Comment: Elec tronically Signed By: Kera Diehl\.br\Date and Time Signed: 05/12/23 15:40 EDT Lipase LevelOrdered By: [employer] SYSTEM on 05-12-2023 Lipase [Catalytic activity/Vol] 35 U/L Normal 13-58 [facility] Chem Comment on above: Performed By: #### 1 6050731, 7450677, 88635641, 3505888, 8426265, 81361852, 77588010, 9107570 ####[facility] [address] [place] [address] Main OR PACU I Recordon 04-16 Main OR PACU I Record Normal [facility] Main OR Preoperative Recordo n 05-12-2023 Main OR Preoperative Record Normal [facility] Monitor Recordon 05-12-2023 Monitor Record [id number]#1.00TIFF Normal [facility] Monitor Record [id number]#1.00TIFF Normal [facility] Monitor Record [id number]#1.00TIFF Normal [facility] PT & PTTon 05-12-2023 aPTT Coag (PPP) [Time] 34.7 second(s) Normal 25.1-36.5 [facility] Comment on above: Result Comment: Para meter 15 days - 4 weeks 1 - 5 months 6 - 11 months 1 - 5 years 6 - 10 years 11 - 17 years PTT Mean: 35.4 (27.6-45.6) Mean: 33.5 (24.8-40.7) Mean: 32.4 (25.1-40.7) Mean: 31.6 (24.0-39.2) Mean: 31.6 (26.9-38.7) Mean: 31.0 (24.6-38.4) Pediatric Reference ranges were obtained from a study by Stanton Chilhowee, et al. prepared from 1437 samples obtained at 7 different centers using the same coagulation reagent and instrumentation as [facility]. Currently there are no coagulation studies available worldwide for children to 14 days, and no normal ranges. Heparin therapeutic range (represented by Anti-Factor Xa activity of 0.2 - 0.4 U/mL) corresponds to PTT of 56.6 - 109.0 sec. Performed By: #### 1 8737241, 4500272, 13356569, 8735170, 3834522, 24945859, 99921854, 5005532 ####[facility] [address] [place] [address] PT Coag (PPP) [Time] 13.1 second(s) High 9.4-12.5 [facility] Comment on above: Result Comment: 15 [...] the same coagulation reagent and instrumentation as [facility]. Currently there are no coagulation studies available worldwide for children to 14 days, and no normal ranges. Performed By: #### 1 8414114, 7052563, 07318461, 4919188, 7585900, 24099445, 46156007, 9847317 ####[facility] [address] [place] [address] PT & PTTOrdered By: Shannon cutler on 05-12-2023 INR Coag (PPP) [Relative time] 1.17 {INR} Invalid Interpretation Code [facility] Auto Coag Comment on above: Interpretive Data: [...] 3.0 ? 4.5 Performed By: #### 1 3858480, 3479832, 54874298, 4749370, 5221909, 31018386, 83129619, 6721387 ####[facility] [address] [place] [address] Provider Letteron 05-12-2023 Provider Letter Normal [facility] SEROLOGYOrdered By: Shannon cutler on 05-12-2023 Beta HCG ( test) Ql Negative (05/12/23 10:00 AM) Normal [facility] Man Sero Troponin 0 Hr.on 05-12-2023 Troponin I.cardiac [Mass/Vol] ng/mL Low 10.10-27.10 [facility] Comment on above: Result Comment: The 95% CI (Confidence Interval) PPV (Positive Predictive Value) for myocardial infarction in females is 38 pg/mL, in males 51 pg/mL. The results should be used in conjunction with clinical conditions of myocardial infarction.(Access High Sensitivity Troponin I Instructions For Use, Alan Biddeford, September 2017) Performed By: #### 1 5894794, 4464894, 30669708, 9626349, 4143937, 70435796, 72400004, 9087851 ####[facility] [address] [place] [address] eGFROrdered By: SYSTEM Bike HUDE [employer] on 05-12-2023 eGFR 76 mL/min/1.73 m2 Normal >=59 [facility] Chem Comment on above: Order Comment: Order added by Discern Expert. Performed By: #### 1 5732855, 0167154, 69057745, 5021722, 3221745, 22730377, 57298734, 9512492 ####[facility] [address] [place] [address] CBC w/ Auto Diffon 4 Basophils/100 WBC (Bld) 0.7 % Normal 0.0-2.0 [facility] Comment on above: Performed By: #### 2 526512, 0622834, 23240948, 2944228, 7365716, 6983972 ####[address] [place] [address] Basophils/Leukocyte s Auto (Bld) [Pure # fraction] 0.0 E9/L Normal 0.0-0.2 [facility] Comment on above: Performed By: #### 2 390454, 0071563, 77464024, 4390896, 8312799, 5828708 ####[address] [address] Eosinophils (Bld) [#/Vol] 0.0 E9/L Normal 0.0-0.5 [facility] Comment on above: Performed By: #### 2 538122, 6876017, 11655222, 8282244, 0286070, 8859522 ####[address] [address] Eosinophils/100 WBC (Bld) 1.5 % Normal 0.0-8.0 [facility] Comment on above: Performed By: #### 2 473599, 8440758, 21265005, 1742885, 9949096, 9209208 ####[address] [address] Erythrocyte distribution width (RBC) [Ratio] 14.6 % High 10.9-14.2 [facility] Comment on above: Performed By: #### 2 625917, 3641985, 31809829, 6153154, 2986868, 6946434 ####[address] [address] Hematocrit (Bld) [Volume fraction] 38.7 % Normal 34.0-46.0 [facility] Comment on above: Performed By: #### 2 722830, 4832386, 23840723, 7353799, 6022109, 6987816 ####[address] [address] Hemoglobin (Bld) [Mass/Vol] 13.2 g/dL Normal 12.0-16.0 [facility] Comment on above: Performed By: #### 2 925085, 9014651, 57936145, 5312009, 6708812, 5049823 ####[address] [address] Lymphocytes (Bld) [#/Vol] 1.3 E9/L Normal 1.0-4.0 [facility] Comment on above: Performed By: #### 2 412579, 5674490, 24704416, 7346236, 2252170, 8249056 ####[address] [address] Lymphocytes/100 WBC (Bld) 48.6 % Normal 14.0-50.0 [facility] Comment on above: Performed By: #### 2 871313, 9964767, 30837463, 6340152, 6848054, 4164184 ####[address] [address] MCH (RBC) [Entitic mass] 30.3 pg Normal 27.0-34.0 [facility] Comment on above: Performed By: #### 2 482224, 5429843, 39626023, 8309694, 0027334, 5408299 ####[address] [address] MCHC (RBC) [Mass/Vol] 34.2 g/dL Normal 31.4-36.0 [facility] Comment on above: Performed By: #### 2 362532, 4903532, 77103666, 5574692, 3230347, 7316485 ####[address] [address] MCV (RBC) [Entitic vol] 88.6 fL Normal 80.0-100.0 [facility] Comment on above: Performed By: #### 2 934514, 1116986, 04171911, 5751546, 7644959, 9085166 ####[address] [address] Monocytes (Bld) [#/Vol] 0.2 E9/L Normal 0.2-1.0 [facility] Comment on above: Performed By: #### 2 875719, 0262573, 27915542, 3553855, 5479646, 1655563 ####[facility] [address] [place] [address] Neutrophils (Bld) [#/Vol] 1.1 E9/L Low 2.0-7.5 [facility] Comment on above: Performed By: #### 2 086191, 4854702, 08682111, 5713970, 9860971, 6585077 ####[address] [place] [address] Neutrophils/100 WBC (Bld) 40.2 % Normal 36.0-75.0 [facility] Comment on above: Performed By: #### 2 610349, 4242943, 34176839, 9041794, 5725579, 9045022 ####[address] [address] Platelet mean volume (Bld) [Entitic vol] 9.2 fL Normal 6.4-10.8 [facility] Comment on above: Performed By: #### 2 126461, 2908439, 25429617, 3854289, 8926399, 8157395 ####[address] [address] Platelets (Bld) [#/Vol] 195.0 E9/L Normal 150.0-500.0 [facility] Comment on above: Performed By: #### 2 095603, 7834088, 78772836, 4945397, 2144696, 2728307 ####[address] [place] [address] RBC (Bld) [#/Vol] 4.4 E12/L Normal 4.3-5.9 [facility] Comment on above: Performed By: #### 2 812028, 2794658, 01241107, 2452963, 0715761, 1218522 ####[facility] [address] [place] [address] WBC corrected for nucl RBC Auto (Bld) [#/Vol] 2.7 E9/L Low 4.0-11.0 [facility] Comment on above: Performed By: #### 2 208623, 7232137, 41911626, 4064159, 3868205, 5678411 ####[facility] [address] [place] [address] CHEMISTRYOrdered By: SYSTEM SYSTEM on 05-11-2023 Amphetamines [...] Alternate Method called to Maribel Ortega by [id number] Interpretive Data: N egative Cutoff: <300 ng/mL [...] 05-11-2023 Albumin [Mass/Vol] 4.6 g/dL Normal 3.3-5.0 [facility] Comment on above: Performed By: #### 2 490994, 5072447, 39991671, 4630760, 0100718, 4473780 ####[facility] [address] [place] [address] Albumin/Globulin (S) [Mass conc ratio] 1.8 Normal 1.1-2.2 [facility] Comment on above: Performed By: #### 2 549606, 2372581, 68089283, 1977219, 9774404, 8186678 ####[facility] [address] [place] [address] ALP [Catalytic activity/Vol] 60 Int._Unit/L Normal 21-98 [facility] Comment on above: Performed By: #### 2 975783, 7914177, 41590087, 1265084, 5172696, 8855848 ####[facility] [address] [place] [address] ALT No additional P-5'-P [Catalytic activity/Vol] 14 Int._Unit/L Normal 6-46 [facility] Comment on above: Performed By: #### 2 755522, 2738041, 72705622, 4988616, 5368881, 3438798 ####[facility] [address] [place] [address] Anion gap [Moles/Vol] 15 mmol/L Normal 6-16 [facility] Comment on above: Performed By: #### 2 716447, 1291689, 58740492, 2647948, 0194823, 9723534 ####[facility] [address] [place] [address] AST [Catalytic activity/Vol] 25 Int._Unit/L Normal 5-43 [facility] Comment on above: Performed By: #### 2 940489, 2018110, 70235090, 1565255, 1495999, 0042180 ####[facility] [address] [place] [address] Bilirubin [Mass/Vol] 0.5 mg/dL Normal 0.0-1.1 [facility] Comment on above: Performed By: #### 2 773437, 2638686, 22457306, 6162974, 2550404, 0909118 ####[facility] [address] [place] [address] Calcium [Mass/Vol] 9.4 mg/dL Normal 8.9-11.1 [facility] Comment on above: Performed By: #### 2 160496, 8225377, 40015723, 0772771, 2672966, 2144050 ####[facility] [address] [place] [address] Chloride [Moles/Vol] 104 mmol/L Normal 101-111 [facility] Comment on above: Performed By: #### 2 341049, 2689838, 28332743, 6244667, 5299483, 6888554 ####[facility] [address] [place] [address] CO2 [Moles/Vol] 23 mmol/L Normal 21-31 [facility] Comment on above: Performed By: #### 2 769709, 5424034, 82868760, 7861965, 2237131, 3188312 ####[facility] [address] [place] [address] Creatinine [Mass/Vol] 0.8 mg/dL Normal 0.5-1.3 [facility] Comment on above: Performed By: #### 2 775978, 6483104, 76678327, 3193111, 0886808, 5965874 ####[facility] [address] [place] [address] Globulin (S) [Mass/Vol] 2.5 g/dL Normal 1.4-4.0 [facility] Comment on above: Performed By: #### 2 790161, 9118069, 07304949, 7068373, 3246198, 1438202 ####[facility] [address] [place] [address] Glucose [Mass/Vol] 80 mg/dL Normal 55-199 [facility] Comment on above: Performed By: #### 2 702161, 9099865, 50112076, 3286972, 7026914, 1952340 ####[facility] [address] [place] [address] Potassium [Moles/Vol] 3.6 mmol/L Normal 3.5-5.3 [facility] Comment on above: Performed By: #### 2 257381, 9575743, 90852589, 0117633, 1177381, 0534025 ####[facility] [address] [place] [address] Protein [Mass/Vol] 7.1 g/dL Normal 6.0-7.8 [facility] Comment on above: Performed By: #### 2 951473, 5491421, 25840937, 6702056, 2408981, 4074095 ####[facility] [address] [place] [address] Sodium [Moles/Vol] 138 mmol/L Normal 135-145 [facility] Comment on above: Performed By: #### 2 811997, 2913970, 53734928, 1427780, 8956257, 3245357 ####[facility] [address] [place] [address] Urea nitrogen [Mass/Vol] 9 mg/dL Normal 5-21 [facility] Comment on above: Performed By: #### 2 781855, 0456392, 44961225, 4480230, 8233719, 2133018 ####[facility] [address] [place] [address] Urea nitrogen/Creatinine [Mass ratio] 11 No Units Normal 12-04 [facility] Comment on above: Performed By: #### 2 205487, 1843769, 76072708, 8226146, 9590944, 8410859 ####[facility] [address] [place] [address] CT Abdomen/Pelvis w/o Contra ston 05-11-2023 CT Abdomen/Pelvis w/o Contrast Normal [facility] Consent for Treatmenton 04-16 Consent for Treatment [id number] 37#1.00TIFF Normal [facility] Discharge Instructionson Discharge Instructions [id number] 81#1.00TIFF Normal [facility] ED Clinical Summaryon 2023 ED Clinical Summary Normal [facility] ED Note-Physicianon 05-11-19 ED Note-Physician Normal [facility] Comment on above: Result Comment: Elec tronically Signed By: Tiffani Cunningham PA-C\.br\Date and Time Signed: 05/11/23 17:06 EDT\.br\Electronically Co-Signed By: Mateusz Garcia DO\.br\Date and Time Co-Signed: 05/11/23 20:41 EDT ED Patient Education Noteon 05-11-2023 ED Patient Education Note Normal [facility] ED Patient Summaryon 024 ED Patient Summary Normal [facility] HEMATOLOGYOrdered By: SYSTEM SYSTEM on 05-11-2023 [...] Lactic Acid Lvl 0.6 mmol/L Normal 0.5-2.2 [facility] Comment on above: Performed By: #### 2 835809, 1978867, 46394641, 1706453, 4395337, 8634924 ####[facility] [address] [place] [address] Lipase Levelon 05-11-2023 Lipase [Catalytic activity/Vol] 34 U/L Normal 13-58 [facility] Comment on above: Performed By: #### 2 268983, 9158665, 75583892, 4280944, 2523208, 5718824 ####[facility] [address] [place] [address] Magnesiumon 05-11-2023 Magnesium [Mass/Vol] 2.1 mg/dL Normal 1.3-2.4 [facility] Comment on above: Performed By: #### 2 557389, 2075565, 37980152, 7759048, 5253724, 5768963 ####[facility] [address] [place] [address] SEROLOGYOrdered By: Olga Meng on 05-11-2023 HCG.beta subunit (U) [Moles/Vol] Negative Normal [facility] Man Sero U BetaHcg Qualon 05-11-2023 HCG.beta subunit (U) [Moles/Vol] Negative Normal [facility] Comment on above: Performed By: #### 4 [id number], 21706832 ####[facility] [address] [place] [address] U Drug Screenon 05-11-2023 Amphetamines Screen method >1000 ng/mL Ql (U) Negative Normal NEGATIVE [facility] Comment on above: Result Comment: Nega tive Cutoff: <1000 ng/mL Performed By: #### 2 319547 ####[facility] [address] [place] [address] Barbiturates Screen Ql (U) Negative Normal NEGATIVE [facility] Comment on above: Result Comment: Nega tive Cutoff: <200 ng/mL Performed By: #### 2 314018 ####[facility] [address] [place] [address] Benzodiazepines Ql (U) Negative Normal NEGATIVE [facility] Comment on above: Result Comment: Nega tive Cutoff: <200 ng/mL Performed By: #### 2 598832 ####[address] [address] Cannabinoids Screen Ql (U) Positive Abnormal NEGATIVE [facility] Comment on above: Result Comment: No C onfirmation Requested by PhysicianResult Verified by Repeat AnalysisUnconfirmed by an Alternate Methodcalled to Maribel Ortega by at 1404Negative Cutoff: <50 ng/mL Performed By: #### 2 111744 ####[address] [address] Cocaine Ql (U) Negative Normal NEGATIVE [facility] Comment on above: Result Comment: Nega tive Cutoff: <300 ng/mL Performed By: #### 2 [address]27936 ####[address] Opiates Screen Ql (U) Positive Abnormal NEGATIVE [facility] Comment on above: Result Comment: No C onfirmation Requested by PhysicianResult Verified by Repeat AnalysisUnconfirmed by an Alternate Methodcalled to Maribel Ortega by [id number] Cutoff: <300 ng/mL Performed By: #### 2 725193 ####[address] Phencyclidine Screen method >25 ng/mL Ql (U) Negative Normal NEGATIVE [facility] Comment on above: Result Comment: Nega tive Cutoff: <25 ng/mLThese drug screen results are to be used for medical (i.e., treatment) purposes only. Unconfirmed drug screening results must not be used for non-medical purposes (e.g., employment testing, legal testing). Performed By: #### 2 152027 ####[address] [address] UA with Cult Rflxon 05-11-19 24 Color (U) Light-Yellow Normal Yellow [facility] Comment on above: Result Comment: Micr oscopic readings are only performed on those samples that meet specific criteria set forth by [facility]. Performed By: #### 4 [id number], [id number] ####[facility] [address] [place] [address] Glucose (U) [Mass/Vol] Negative Normal Negative [facility] Comment on above: Performed By: #### 4 [id number], 38264502 ####[facility] [address] [place] [address] Ketones Ql (U) Negative Normal Negative [facility] Comment on above: Performed By: #### 4 [id number], 97444029 ####[facility] [address] [place] [address] UA Blood Negative Normal Negative [facility] Comment on above: Performed By: #### 4 [id number], 95464169 ####[facility] [address] [place] [address] UA Clarity Clear Normal Clear [facility] Comment on above: Performed By: #### 4 411759356, 34616339 ####[facility] [facility] [address] [place] [address] UA Leuk Est Negative Normal Negative [facility] Comment on above: Performed By: #### 4 [id number], [id number] ####[facility] [address] [place] [address] UA Nitrite Negative Normal Negative [facility] Comment on above: Performed By: #### 4 [id number], [id number] ####[facility] [address] [place] [address] UA pH 7.5 Invalid Interpretation Code 5.0-9.0 [facility] Comment on above: Performed By: #### 4 [id number], [id number] ####[facility] [address] [place] [address] UA Protein Negative Normal Negative [facility] Comment on above: Performed By: #### 4 [id number], [id number] ####[facility] [address] [place] [address] UA Spec Grav 1.010 Invalid Interpretation Code 1.005-1.030 [facility] Comment on above: Performed By: #### 4 [id number], [id number] ####[facility] [address] [place] [address] UA Urobilinogen Negative Normal Negative [facility] Comment on above: Performed By: #### 4 [id number], [id number] ####[address] [address] Urobilinogen (U) [Mass/Vol] Negative Normal Negative [facility] Comment on above: Performed By: #### 4 [id number], [id number] ####[address] [address] UA Spec Desc Clean Catch Normal [facility] Comment on above: Performed By: #### 4 [id number], [id number] ####[facility] [address] [place] [address] URINALYSISOrdered By: SYSTEM SYSTEM on 05-11-2023 Color (U) Light-Yellow 3 (05/11/23 12:41 PM) Normal Yellow [facility] UA Auto SS Comment on above: Interpretive Data: M icroscopic readings are only performed on those samples that meet specific criteria set forth by [facility]. Glucose (U) [Mass/Vol] Negative Normal Negativemg/dL [facility] UA Auto SS Ketones Ql (U) Negative [...] Auto SS UA Urobilinogen Negative Normal Negativemg/dL [facility] U A Auto SS Urobilinogen (U) [Mass/Vol] Negative Normal Negativemg/dL [facility] UA Auto SS URINALYSISOrdered By: Tiffani Cunningham on 05-11-2023 UA Spec Desc Clean Catch (05/11/23 12:41 PM) Normal [facility] UA Auto SS eGFRon 05-11-2023 eGFR 99 mL/min/1.73 m2 Normal >=59 [facility] Comment on above: Order Comment: Order added by Discern Expert. Performed By: #### 2 185819, 1687637, 51873949, 3951985, 2441724, 3631143 ####[facility] [address] [place] [address] Ambulatory Visit Summaryon 0 05-10-2023 Ambulatory Visit Summary Normal [address] [place] [address]- \.br\ Medications\.br\ What How Much When Why [...] for choosing us for your care.\.br\ \.br\ [facility] CNPNon 05-10-2023 CNPN Normal [facility] Office/Clini c Noteon 05-10-2023 Family Medicine Office/Clinic Note Normal [facility] Comment on above: Result Comment: Elec tronically Signed By: Jaquan Paula\.br\Date and Time Signed: 05/10/23 14:35 EDT [facility] Record[facility] 2023 Home Health Records [id number] 80#1.00TIFF Normal [facility] Provider Letteron 05-10-2023 Provider Letter Normal [facility] B hCG Qualon 05-09-2023 Beta HCG ( test) Ql Negative Normal [facility] Comment on above: Performed By: #### 1 3008448, 01283702, 2888753, 0932341, 3903245, 3694285 ####[facility] [address] [place] [address] BMPon 05-09-2023 Anion gap [Moles/Vol] 12 mmol/L Normal 6-16 [facility] Comment on above: Performed By: #### 1 3108149, 02496721, 4947231, 2697651, 2253449, 6047572 ####[facility] [address] [place] [address] Calcium [Mass/Vol] 8.6 mg/dL Low 8.9-11.1 [facility] Comment on above: Performed By: #### 1 9173420, 77491667, 6019291, 7251392, 9313442, 7332037 ####[facility] [address] [place] [address] Chloride [Moles/Vol] 109 mmol/L Normal 101-111 [facility] Comment on above: Performed By: #### 1 3418570, 47956626, 2919218, 7325025, 1008669, 8831041 ####[facility] [address] [place] [address] CO2 [Moles/Vol] 23 mmol/L Normal 21-31 [facility] Comment on above: Performed By: #### 1 9550428, 99205205, 5029766, 5308677, 7854685, 4803782 ####[facility] [address] [place] [address] Creatinine [Mass/Vol] 0.8 mg/dL Normal 0.5-1.3 [facility] Comment on above: Performed By: #### 1 0739740, 47213203, 0991056, 1497588, 3891010, 0421573 ####[facility] [address] [place] [address] Glucose [Mass/Vol] 79 mg/dL Normal 55-199 [facility] Comment on above: Performed By: #### 1 8115375, 58323567, 5574470, 9421245, 5771863, 4487947 ####[facility] [address] [place] [address] Potassium [Moles/Vol] 3.9 mmol/L Normal 3.5-5.3 [facility] Comment on above: Performed By: #### 1 3645774, 46170251, 9490281, 1951265, 9724134, 6467679 ####[facility] [address] [place] [address] Sodium [Moles/Vol] 140 mmol/L Normal 135-145 [facility] Comment on above: Performed By: #### 1 7485442, 67334556, 2729116, 0832700, 0093046, 1599467 ####[facility] [address] [place] [address] Urea nitrogen [Mass/Vol] 9 mg/dL Normal 5-21 [facility] Comment on above: Performed By: #### 1 7975622, 99556136, 0457315, 6779471, 8925855, 6572795 ####[address] [address] Urea nitrogen/Creatinine [Mass ratio] 11 No Units Normal 10-20 [facility] Comment on above: Performed By: #### 1 2138935, 44903658, 9474810, 9102236, 8231936, 7502486 ####[address] [address] CBC w/ Auto Diffon 4 Basophils/100 WBC (Bld) 1.1 % Normal 0.0-2.0 [facility] Comment on above: Performed By: #### 1 2524161, 31417838, 3240196, 9238537, 5858170, 1130771 ####[address] [address] Basophils/Leukocyte s Auto (Bld) [Pure # fraction] 0.0 E9/L Normal 0.0-0.2 [facility] Comment on above: Performed By: #### 1 0743492, 07338870, 1402200, 1760016, 4112446, 6899586 ####[address] [address] Eosinophils (Bld) [#/Vol] 0.1 E9/L Normal 0.0-0.5 [facility] Comment on above: Performed By: #### 1 7159441, 50965248, 4183814, 8419349, 2806542, 9797132 ####[address] [address] Eosinophils/100 WBC (Bld) 2.1 % Normal 0.0-8.0 [facility] Comment on above: Performed By: #### 1 9381225, 90389862, 5866878, 8042204, 8144306, 2208121 ####[address] [place] [address] Erythrocyte distribution width (RBC) [Ratio] 14.4 % High 10.9-14.2 [facility] Comment on above: Performed By: #### 1 6359101, 68374624, 6870156, 0311074, 5123683, 7498713 ####[address] [address] Hematocrit (Bld) [Volume fraction] 36.3 % Normal 34.0-46.0 [facility] Comment on above: Performed By: #### 1 2327596, 38026460, 8905765, 7238900, 3245366, 0699692 ####[address] Hemoglobin (Bld) [Mass/Vol] 12.3 g/dL Normal 12.0-16.0 [facility] Comment on above: Performed By: #### 1 7655889, 09926131, 1976063, 1114073, 6976919, 7198787 ####[address] [address] Lymphocytes (Bld) [#/Vol] 1.2 E9/L Normal 1.0-4.0 [facility] Comment on above: Performed By: #### 1 4573953, 07361832, 8895177, 8641122, 3416791, 4767541 ####[address] [address] Lymphocytes/100 WBC (Bld) 42.2 % Normal 14.0-50.0 [facility] Comment on above: Performed By: #### 1 1755393, 50295056, 9634900, 6606205, 4097430, 8525110 ####[address] [address] MCH (RBC) [Entitic mass] 30.2 pg Normal 27.0-34.0 [facility] Comment on above: Performed By: #### 1 4422682, 64925885, 3604529, 3222491, 7718620, 2056024 ####[address] [address] MCHC (RBC) [Mass/Vol] 33.9 g/dL Normal 31.4-36.0 [facility] Comment on above: Performed By: #### 1 7792340, 93500533, 9278368, 9151633, 4297254, 4675150 ####[address] [place] [address] MCV (RBC) [Entitic vol] 89.2 fL Normal 80.0-100.0 [facility] Comment on above: Performed By: #### 1 6669846, 23726012, 7322081, 6423579, 9974914, 3957750 ####[address] [address] Monocytes (Bld) [#/Vol] 0.3 E9/L Normal 0.2-1.0 [facility] Comment on above: Performed By: #### 1 3940983, 64502550, 0623528, 9059646, 6512832, 5004583 ####[address] [address] Neutrophils (Bld) [#/Vol] 1.2 E9/L Low 2.0-7.5 [facility] Comment on above: Performed By: #### 1 2660710, 33296203, 2656277, 9728028, 9565028, 8659260 ####[address] [address] Neutrophils/100 WBC (Bld) 44.3 % Normal 36.0-75.0 [facility] Comment on above: Performed By: #### 1 0205117, 22465603, 5269818, 2070880, 9689263, 2920128 ####[address] [place] [address] Platelet 201.0 E9/L Normal 150.0-500.0 [facility] Comment on above: Performed By: #### 1 5227233, 56190532, 7210129, 4818601, 1067398, 1142732 ####[facility] [address] [place] [address] Platelet mean volume (Bld) [Entitic vol] 9.8 fL Normal 6.4-10.8 [facility] Comment on above: Performed By: #### 1 2045403, 92181695, 3761287, 2903268, 5872832, 8467944 ####[facility] [address] [place] [address] RBC (Bld) [#/Vol] 4.1 E12/L Low 4.3-5.9 [facility] Comment on above: Performed By: #### 1 2427265, 11655501, 5723053, 5752186, 9200276, 0342583 ####[facility] [address] [place] [address] WBC corrected for nucl RBC Auto (Bld) [#/Vol] 2.8 E9/L Low 4.0-11.0 [facility] Comment on above: Performed By: #### 1 2892354, 09599675, 4979982, 6719356, 5432648, 6095693 ####[facility] [address] [place] [address] CHEMISTRYOrdered By: SYSTEM SYSTEM on 05-09-2023 Albumin [...] for Treatmenton 04-16 Consent for Treatment [id number] E0#1.00TIFF Normal [facility] Discharge Instructionson Discharge Instructions [id number] 14#1.00TIFF Normal [facility] ED Clinical Summaryon 2023 [facility] ED Note-Nursing Discharge materials given, wheeled patient out. Home with family care. Normal [facility] ED Note-Physicianon 05-09-19 ED Note-Physician Normal [facility] Comment on above: Result Comment: Elec tronically Signed By: Lonnie Rios PA-C\.br\Date and Time Signed: 05/09/23 15:52 EDT\.br\Electronically Co-Signed By: Mateusz Garcia DO\.br\Date and Time Co-Signed: 05/09/23 17:19 EDT ED Patient Education Noteon 05-09-2023 ED Patient Education Note Normal [facility] ED Patient Summaryon ED Patient Summary Normal [facility] HEMATOLOGYOrdered By: SYSTEM SYSTEM on 05-09-2023 [...] 05-09-2023 Albumin [Mass/Vol] 4.3 g/dL Normal 3.3-5.0 [facility] Comment on above: Performed By: #### 1 8067130, 72758824, 8388033, 5739728, 8795976, 0195428 ####[facility] [address] [place] [address] Albumin/Globulin (S) [Mass conc ratio] 1.8 Normal 1.1-2.2 [facility] Comment on above: Performed By: #### 1 5308579, 03934881, 9309753, 9782448, 5739833, 8161627 ####[facility] [address] [place] [address] ALP [Catalytic activity/Vol] 51 Int._Unit/L Normal 21-98 [facility] Comment on above: Performed By: #### 1 8739123, 89989562, 4066462, 6131473, 3535612, 9010296 ####[facility] [address] [place] [address] ALT No additional P-5'-P [Catalytic activity/Vol] 15 Int._Unit/L Normal 6-46 [facility] Comment on above: Performed By: #### 1 9750604, 91996145, 8238465, 7743172, 2616713, 8668776 ####[facility] [address] [place] [address] AST [Catalytic activity/Vol] 26 Int._Unit/L Normal 5-43 [facility] Comment on above: Performed By: #### 1 8886488, 30514358, 9041926, 4303404, 3366140, 3873848 ####[facility] [address] [place], [place] [address] Bilirubin [Mass/Vol] 0.3 mg/dL Normal 0.0-1.1 [facility] Comment on above: Performed By: #### 1 6663517, 68317537, 1120334, 5307856, 1229504, 2683746 ####[facility] [address] [place] [address] Bilirubin.direct [Mass/Vol] 0.1 mg/dL Normal 0.0-0.4 [facility] Comment on above: Performed By: #### 1 8645089, 71461894, 5049650, 2064553, 6556844, 7551551 ####[facility] [address] [place] [address] Bilirubin.indirect [Mass or moles/Vol] 0.2 mg/dL Normal 0.1-0.9 [facility] Comment on above: Performed By: #### 1 5403784, 37663621, 1470221, 7822969, 8797137, 8058910 ####[facility] [address] [place] [address] Globulin (S) [Mass/Vol] 2.4 g/dL Normal 1.4-4.0 [facility] Comment on above: Performed By: #### 1 0229460, 01372698, 9594868, 6638132, 5495035, 1038074 ####[facility] [address] [place] [address] Protein [Mass/Vol] 6.7 g/dL Normal 6.0-7.8 [facility] Comment on above: Performed By: #### 1 7765512, 02013980, 7517441, 6129282, 7092854, 3778438 ####[facility] [address] [place] [address] Lipase Levelon 05-09-2023 Lipase [Catalytic activity/Vol] 68 U/L High 13-58 [facility] Comment on above: Performed By: #### 1 9214869, 59752948, 3789350, 3966258, 8194411, 4539852 ####[facility] [address] [place] [address] SEROLOGYOrdered By: Stacia Arroyo on 05-09-2023 Beta HCG ( test) Ql Negative (05/09/23 12:12 PM) Normal [facility] Man Sero eGFRon 05-09-2023 eGFR 99 mL/min/1.73 m2 Normal >=59 [facility] Comment on above: Order Comment: Order added by Discern Expert. Performed By: #### 1 3478015, 39915906, 0766747, 6603053, 9058045, 9198299 ####[facility] [address] [place] [address] CNPNon 05-07-2023 CNPN Normal [facility] ED Note-Physicianon 05-07-19 ED Note-Physician Normal [facility] Comment on above: Result Comment: Elec tronically Signed By: Justine German PA-C\.br\Date and Time Signed: 05/06/23 21:25 EDT\.br\Electronically Co-Signed By: Mateusz Garcia DO\.br\Date and Time Co-Signed: 05/07/23 07:00 EDT Amylaseon 05-06-2023 Amylase [Catalytic activity/Vol] 40 U/L Normal 25-157 [facility] Comment on above: Order Comment: pt lillian cruz poked once, pt extremely dehydrated and would like to wait for IV start [id number] 05/06/2023 16:33:00 EDT Performed By: #### 2 611525, 5595792, 8887033, 0232427, 53856360, 0316504, 3498283 ####[facility] [address] [place] [address] BMPon 05-06-2023 Anion gap [Moles/Vol] 13 mmol/L Normal 6-16 [facility] Comment on above: Order Comment: pt lillian cruz poked once, pt extremely dehydrated and would like to wait for IV start [id number] 05/06/2023 16:33:00 EDT Performed By: #### 2 587294, 2958845, 2483807, 2605796, 78386903, 2017573, 8118969 ####[facility] [address] [place] [address] Calcium [Mass/Vol] 9.1 mg/dL Normal 8.9-11.1 [facility] Comment on above: Order Comment: pt lillian cruz poked once, pt extremely dehydrated and would like to wait for IV start [id number] 05/06/2023 16:33:00 EDT Performed By: #### 2 001460, 6256895, 7631350, 3059656, 82231594, 3593200, 1953900 ####[facility] [address] [place] [address] Chloride [Moles/Vol] 107 mmol/L Normal 101-111 [facility] Comment on above: Order Comment: pt lillian cruz poked once, pt extremely dehydrated and would like to wait for IV start [id number] 05/06/2023 16:33:00 EDT Performed By: #### 2 321985, 1530635, 0863787, 6908278, 63635041, 6088709, 8455532 ####[facility] [address] [place] [address] CO2 [Moles/Vol] 22 mmol/L Normal 21-31 [facility] Comment on above: Order Comment: pt lillian cruz poked once, pt extremely dehydrated and would like to wait for IV start [id number] 05/06/2023 16:33:00 EDT Performed By: #### 2 340679, 5546540, 2043545, 8528514, 32116071, 3959410, 3603006 ####[facility] [address] [place] [address] Creatinine [Mass/Vol] 0.8 mg/dL Normal 0.5-1.3 [facility] Comment on above: Order Comment: pt lillian cruz poked once, pt extremely dehydrated and would like to wait for IV start [id number] 05/06/2023 16:33:00 EDT Performed By: #### 2 729222, 0729868, 0431271, 1349441, 74682205, 3070003, 4727856 ####[facility] [address] [place] [address] Glucose [Mass/Vol] 80 mg/dL Normal 55-199 [facility] Comment on above: Order Comment: pt lillian cruz poked once, pt extremely dehydrated and would like to wait for IV start [id number] 05/06/2023 16:33:00 EDT Performed By: #### 2 510015, 2638263, 1592515, 2923649, 05135009, 9601953, 9820607 ####[facility] [address] [place] [address] Potassium [Moles/Vol] 3.7 mmol/L Normal 3.5-5.3 [facility] Comment on above: Order Comment: pt lillian cruz poked once, pt extremely dehydrated and would like to wait for IV start [id number] 05/06/2023 16:33:00 EDT Performed By: #### 2 822798, 5399054, 4643561, 1266900, 06601711, 3241015, 0425806 ####[facility] [address] [place] [address] Sodium [Moles/Vol] 138 mmol/L Normal 135-145 [facility] Comment on above: Order Comment: pt lillian cruz poked once, pt extremely dehydrated and would like to wait for IV start [id number] 05/06/2023 16:33:00 EDT Performed By: #### 2 421968, 6339829, 9092952, 6065533, 95488555, 4906487, 1187421 ####[facility] [address] [place] [address] Urea nitrogen [Mass/Vol] 10 mg/dL Normal 5-21 [facility] Comment on above: Order Comment: pt lillian cruz poked once, pt extremely dehydrated and would like to wait for IV start [id number] 05/06/2023 16:33:00 EDT Performed By: #### 2 669951, 6294587, 8174389, 3087216, 81433156, 9105859, 0514285 ####[facility] [address] [place] [address] Urea nitrogen/Creatinine [Mass ratio] 12 No Units Normal 10-20 [facility] Comment on above: Order Comment: pt lillian cruz poked once, pt extremely dehydrated and would like to wait for IV start [id number] 05/06/2023 16:33:00 EDT Performed By: #### 2 918681, 8463932, 2040236, 2909596, 63983187, 6346651, 1449608 ####[facility] [address] [place] [address] CBC w/ Auto Diffon 4 Basophils/100 WBC (Bld) 1.1 % Normal 0.0-2.0 [facility] Comment on above: Order Comment: pt lillian cruz poked once, pt extremely dehydrated and would like to wait for IV start [id number] 05/06/2023 16:33:00 EDT Performed By: #### 2 317726, 0409348, 4247539, 8296327, 53436693, 1495963, 9388277 ####[facility] [address] [place] [address] Basophils/Leukocyte s Auto (Bld) [Pure # fraction] 0.0 E9/L Normal 0.0-0.2 [facility] Comment on above: Order Comment: pt lillian s poked once, pt extremely dehydrated and would like to wait for IV start [id number] 05/06/2023 16:33:00 EDT Performed By: #### 2 788383, 5517278, 7106006, 8374256, 43768130, 7100273, 8109084 ####[facility] [address] [place] [address] Eosinophils (Bld) [#/Vol] 0.1 E9/L Normal 0.0-0.5 [facility] Comment on above: Order Comment: pt wa s poked once, pt extremely dehydrated and would like to wait for IV start [id number] 05/06/2023 16:33:00 EDT Performed By: #### 2 652711, 6289956, 0203144, 7470309, 36384351, 1104027, 8920543 ####[facility] [address] [place] [address] Eosinophils/100 WBC (Bld) 1.5 % Normal 0.0-8.0 [facility] Comment on above: Order Comment: pt lillian s poked once, pt extremely dehydrated and would like to wait for IV start [id number] 05/06/2023 16:33:00 EDT Performed By: #### 2 579624, 0753570, 4472717, 0332231, 86253938, 4350955, 2220281 ####[facility] [address] [place] [address] Erythrocyte distribution width (RBC) [Ratio] 14.1 % Normal 10.9-14.2 [facility] Comment on above: Order Comment: pt lillian s poked once, pt extremely dehydrated and would like to wait for IV start [id number] 05/06/2023 16:33:00 EDT Performed By: #### 2 384701, 7076878, 8129281, 6120790, 22623537, 7532862, 8933442 ####[facility] [address] [place] [address] Hematocrit (Bld) [Volume fraction] 37.9 % Normal 34.0-46.0 [facility] Comment on above: Order Comment: pt wa s poked once, pt extremely dehydrated and would like to wait for IV start [id number] 05/06/2023 16:33:00 EDT Performed By: #### 2 708715, 0083464, 9949105, 4793571, 72807988, 1183307, 0680845 ####[facility] [address] [place] [address] Hemoglobin (Bld) [Mass/Vol] 12.9 g/dL Normal 12.0-16.0 [facility] Comment on above: Order Comment: pt wa s poked once, pt extremely dehydrated and would like to wait for IV start [id number] 05/06/2023 16:33:00 EDT Performed By: #### 2 971640, 0115800, 6384863, 0655565, 11396589, 8712444, 0884631 ####[facility] [address] [place] [address] Lymphocytes (Bld) [#/Vol] 1.4 E9/L Normal 1.0-4.0 [facility] Comment on above: Order Comment: pt wa s poked once, pt extremely dehydrated and would like to wait for IV start [id number] 05/06/2023 16:33:00 EDT Performed By: #### 2 987096, 3818240, 2055544, 8703533, 21380427, 9711906, 4082727 ####[facility] [address] [place] [address] Lymphocytes/100 WBC (Bld) 33.8 % Normal 14.0-50.0 [facility] Comment on above: Order Comment: pt wa s poked once, pt extremely dehydrated and would like to wait for IV start [id number] 05/06/2023 16:33:00 EDT Performed By: #### 2 464225, 4567727, 4413418, 0722376, 31943127, 3494099, 6624922 ####[facility] [address] [place] [address] MCH (RBC) [Entitic mass] 30.3 pg Normal 27.0-34.0 [facility] Comment on above: Order Comment: pt wa s poked once, pt extremely dehydrated and would like to wait for IV start [id number] 05/06/2023 16:33:00 EDT Performed By: #### 2 020715, 7717394, 5267828, 4146149, 38864005, 5938501, 4358879 ####[facility] [address] [place] [address] MCHC (RBC) [Mass/Vol] 34.1 g/dL Normal 31.4-36.0 [facility] Comment on above: Order Comment: pt wa s poked once, pt extremely dehydrated and would like to wait for IV start [id number] 05/06/2023 16:33:00 EDT Performed By: #### 2 949742, 9270206, 8451017, 6996820, 72151878, 2877994, 5350129 ####[facility] [address] [place] [address] MCV (RBC) [Entitic vol] 88.8 fL Normal 80.0-100.0 [facility] Comment on above: Order Comment: pt wa s poked once, pt extremely dehydrated and would like to wait for IV start [id number] 05/06/2023 16:33:00 EDT Performed By: #### 2 034185, 2152528, 2773647, 4098224, 89110665, 4216883, 0898315 ####[facility] [address] [place] [address] Monocytes (Bld) [#/Vol] 0.3 E9/L Normal 0.2-1.0 [facility] Comment on above: Order Comment: pt wa s poked once, pt extremely dehydrated and would like to wait for IV start [id number] 05/06/2023 16:33:00 EDT Performed By: #### 2 333198, 8687119, 3111510, 9637446, 86508432, 8437331, 2525047 ####[facility] [address] [place] [address] Neutrophils (Bld) [#/Vol] 2.3 E9/L Normal 2.0-7.5 [facility] Comment on above: Order Comment: pt wa s poked once, pt extremely dehydrated and would like to wait for IV start [id number] 05/06/2023 16:33:00 EDT Performed By: #### 2 501826, 2780993, 8189314, 9588608, 67160176, 8274912, 6037749 ####[facility] [address] [place] [address] Neutrophils/100 WBC (Bld) 56.4 % Normal 36.0-75.0 [facility] Comment on above: Order Comment: pt wa s poked once, pt extremely dehydrated and would like to wait for IV start [id number] 05/06/2023 16:33:00 EDT Performed By: #### 2 028200, 8246693, 0968735, 0034628, 77887150, 5182813, 8346291 ####[facility] [address] [place] [address] Platelet mean volume (Bld) [Entitic vol] 9.2 fL Normal 6.4-10.8 [facility] Comment on above: Order Comment: pt wa s poked once, pt extremely dehydrated and would like to wait for IV start [id number] 05/06/2023 16:33:00 EDT Performed By: #### 2 321643, 1218356, 7883353, 8100090, 34806291, 8991639, 7231774 ####[facility] [address] [place] [address] Platelets (Bld) [#/Vol] 192.0 E9/L Normal 150.0-500.0 [facility] Comment on above: Order Comment: pt wa s poked once, pt extremely dehydrated and would like to wait for IV start [id number] 05/06/2023 16:33:00 EDT Performed By: #### 2 196213, 3353288, 1167400, 8557410, 95198908, 4671491, 1595015 ####[facility] [address] [place] [address] RBC (Bld) [#/Vol] 4.3 E12/L Normal 4.3-5.9 [facility] Comment on above: Order Comment: pt lillian cruz poked once, pt extremely dehydrated and would like to wait for IV start [id number] 05/06/2023 16:33:00 EDT Performed By: #### 2 256388, 3678952, 1488548, 1330201, 87125396, 9269100, 0261418 ####[facility] [address] [place] [address] WBC corrected for nucl RBC Auto (Bld) [#/Vol] 4.1 E9/L Normal 4.0-11.0 [facility] Comment on above: Order Comment: pt lillian cruz poked once, pt extremely dehydrated and would like to wait for IV start [id number] 05/06/2023 16:33:00 EDT Performed By: #### 2 306591, 5750194, 1038828, 8253304, 43148607, 5920521, 5259682 ####[facility] [address] [place] [address] CHEMISTRYOrdered By: SYSTEM SYSTEM on 05-06-2023 Albumin [...] for Treatmenton 04-16 Consent for Treatment [id number] 11#1.00TIFF Normal [facility] Discharge Instructionson Discharge Instructions [id number] 616#1.00TIFF Normal [facility] ED Clinical Summaryon 2023 ED Clinical Summary Normal Kirsty ahumada [facility] ED Patient Education Noteon 05-06-2023 ED Patient Education Note Normal [facility] ED Patient Summaryon 024 ED Patient Summary Normal [facility] HEMATOLOGYOrdered By: SYSTEM SYSTEM on 05-06-2023 [...] 05-06-2023 Albumin [Mass/Vol] 4.6 g/dL Normal 3.3-5.0 [facility] Comment on above: Order Comment: pt wa s poked once, pt extremely dehydrated and would like to wait for IV start [id number] 05/06/2023 16:33:00 EDT Performed By: #### 2 565893, 0673004, 8311401, 9379936, 57600149, 1894154, 8690958 ####[facility] [address] [place] [address] Albumin/Globulin (S) [Mass conc ratio] 1.8 Normal 1.1-2.2 [facility] Comment on above: Order Comment: pt wa s poked once, pt extremely dehydrated and would like to wait for IV start [id number] 05/06/2023 16:33:00 EDT Performed By: #### 2 129305, 4623324, 9620533, 3533324, 62391241, 6348202, 3570440 ####[facility] [address] [place] [address] ALP [Catalytic activity/Vol] 56 Int._Unit/L Normal 21-98 [facility] Comment on above: Order Comment: pt lillian s poked once, pt extremely dehydrated and would like to wait for IV start [id number] 05/06/2023 16:33:00 EDT Performed By: #### 2 767265, 2716574, 1912637, 5941677, 91219025, 3521455, 5576384 ####[facility] [address] [place] [address] ALT No additional P-5'-P [Catalytic activity/Vol] 14 Int._Unit/L Normal 6-46 [facility] Comment on above: Order Comment: pt wa s poked once, pt extremely dehydrated and would like to wait for IV start [id number] 05/06/2023 16:33:00 EDT Performed By: #### 2 165535, 7202383, 5555356, 1893300, 32882432, 7301132, 2347259 ####[facility] [address] [place] [address] AST [Catalytic activity/Vol] 25 Int._Unit/L Normal 5-43 [facility] Comment on above: Order Comment: pt lillian s poked once, pt extremely dehydrated and would like to wait for IV start [id number] 05/06/2023 16:33:00 EDT Performed By: #### 2 728719, 0269409, 7282823, 4755916, 87720316, 8967155, 8846432 ####[facility] [address] [place] [address] Bilirubin [Mass/Vol] 0.5 mg/dL Normal 0.0-1.1 [facility] Comment on above: Order Comment: pt lillian s poked once, pt extremely dehydrated and would like to wait for IV start [id number] 05/06/2023 16:33:00 EDT Performed By: #### 2 588861, 7730732, 8682799, 5597798, 38354235, 5921967, 3164041 ####[facility] [address] [place] [address] Bilirubin.direct [Mass/Vol] 0.1 mg/dL Normal 0.0-0.4 [facility] Comment on above: Order Comment: pt wa s poked once, pt extremely dehydrated and would like to wait for IV start [id number] 05/06/2023 16:33:00 EDT Performed By: #### 2 625497, 9325084, 3169114, 5561762, 58739641, 2397294, 7883525 ####[facility] [address] [place] [address] Bilirubin.indirect [Mass or moles/Vol] 0.4 mg/dL Normal 0.1-0.9 [facility] Comment on above: Order Comment: pt wa s poked once, pt extremely dehydrated and would like to wait for IV start [id number] 05/06/2023 16:33:00 EDT Performed By: #### 2 760581, 5864036, 6833028, 8236549, 46248447, 8614094, 5653735 ####[facility] [address] [place] [address] Globulin (S) [Mass/Vol] 2.5 g/dL Normal 1.4-4.0 [facility] Comment on above: Order Comment: pt wa s poked once, pt extremely dehydrated and would like to wait for IV start [id number] 05/06/2023 16:33:00 EDT Performed By: #### 2 139867, 4822945, 1398287, 9731977, 38722641, 8470605, 4459273 ####[facility] [address] [place] [address] Protein [Mass/Vol] 7.1 g/dL Normal 6.0-7.8 [facility] Comment on above: Order Comment: pt wa s poked once, pt extremely dehydrated and would like to wait for IV start [id number] 05/06/2023 16:33:00 EDT Performed By: #### 2 493488, 6180617, 0028125, 0049850, 21416603, 8541536, 5030310 ####[facility] [address] [place] [address] Lactic Acidon 05-06-2023 Lactic Acid Lvl 0.7 mmol/L Normal 0.5-2.2 [facility] Comment on above: Order Comment: pt lillian cruz poked once, pt extremely dehydrated and would like to wait for IV start [id number] 05/06/2023 16:33:00 EDT Performed By: #### 2 952968, 8782199, 7333927, 8713365, 28607390, 0333068, 5755611 ####[facility] [address] [place] [address] Lipase Levelon 05-06-2023 Lipase [Catalytic activity/Vol] 62 U/L High 13-58 [facility] Comment on above: Order Comment: pt lillian cruz poked once, pt extremely dehydrated and would like to wait for IV start [id number] 05/06/2023 16:33:00 EDT Performed By: #### 2 324443, 4762830, 8937235, 7541062, 00473633, 7749774, 2355063 ####[facility] [address] [place] [address] Monitor Recordon 05-06-2023 Monitor Record [id number] 932#1.00TIFF Normal [facility] Monitor Record [id number] 260#1.00TIFF Normal [facility] Monitor Record [id number]#1.00TIFF Normal [facility] Monitor Record [id number] 349#1.00TIFF Normal [facility] eGFRon 05-06-2023 eGFR 99 mL/min/1.73 m2 Normal >=59 [facility] Comment on above: Order Comment: Order added by Discern Expert. Performed By: #### 2 230189, 9411010, 9204127, 9666580, 37714081, 9099669, 9928307 ####[facility] [address] [place] [address] ED Note-Physicianon 04-07-19 ED Note-Physician [id number] 6D#1.00TIFF Normal [facility] Alanine aminotransferase [En zymatic activity/volume] in Serum or PlasmaOrdered By: Trace Lowery on 04-06-2023 ALT [Catalytic activity/Vol] 21 U/L Normal 7-52 [facility] Comment on above: Performed By: #### A JOSESITO RAY, CUU #### [facility] [address] [place] [address] [place] Albumin [Mass/volume] in Ser um or Plasma by Bromocresol green (BCG) dye binding methoOrdered By: Trace Leosimore on 04-06-2023 Albumin BCG dye [Mass/Vol] 4.5 g/dL 3.5-5.7 [facility] Alkaline phosphatase [Enzyma tic activity/volume] in Serum or PlasmaOrdered By: Trace Bullimore on 04-06-2023 ALP [Catalytic activity/Vol] 48 U/L Normal 34-104 [facility] Comment on above: Performed By: #### A CORY ELIS, CUU #### [facility] [address] [place] [address] [place] Amylase [Enzymatic activity/ volume] in Serum or PlasmaOrdered By: Trace Leosimore on 04-06-2023 Amylase [Catalytic activity/Vol] 48 U/L Normal 29-103 [facility] Comment on above: Performed By: #### A CORY ELIS, CUU #### [facility] [address] [place] [id number] [place] Aspartate aminotransferase [ Enzymatic activity/volume] in Serum or PlasmaOrdered By: Trace Bullimore on 04-06-2023 AST [Catalytic activity/Vol] 28 U/L Normal 13-39 [facility] Comment on above: Performed By: #### A ALIYAH RAYG, CUU #### [facility] [address] [place] [address] [place] Automated basophil %Ordered By: Trace Bullimore on 04-06-2023 Basophils/100 WBC (Bld) 1.0 % Normal . [facility] Comment on above: Performed By: #### H EPATIC, RAEGAN, CBC, LIPASE, BMP #### [address] Automated basophil countOrde red By: Trace Lowery on 04-06-2023 Basophils (Bld) [#/Vol] 0.0 10*3/uL Normal 0.0-0.2 [facility] Comment on above: Result Comment: PERF ORMED BY: [place] [address] PATHOLOGIST MOLDER OPERATOR BAUTISTA BAKER M.D. Performed By: #### H EPATIC, RAEGAN, CBC, LIPASE, BMP #### [address] Automated blood monocyte cou ntOrdered By: Trace Lowery on 04-06-2023 Monocytes (Bld) [#/Vol] 0.3 10*3/uL Normal 0.0-0.8 [facility] Comment on above: Performed By: #### H EPATIC, RAEGAN, CBC, LIPASE, BMP #### [address] Automated eosinophil %Ordere d By: Trace Lowery on 04-06-2023 Eosinophils/100 WBC (Bld) 3.1 % Normal . [facility] Comment on above: Performed By: #### H EPATIC, RAEGAN, CBC, LIPASE, BMP #### [address] Automated eosinophil countOr dered By: Trace Beverley on 04-06-2023 Eosinophils (Bld) [#/Vol] 0.1 10*3/uL Normal 0.0-0.45 [facility] Comment on above: Performed By: #### H EPATIC, AREGAN, CBC, LIPASE, BMP #### [address] Automated erythrocytes count in urine sediment (number/area)Ordered By: Trace Lowery on 04-06-2023 RBC Auto (Urine sed) [#/Area] 1-2 [HPF] 0-4 [facility] Automated leukocytes count i n urine sediment (number/area)Ordered By: Trace Lowery on 04-06-2023 WBC Auto (Urine sed) [#/Area] 3-4 [HPF] 0-4 [facility] Automated monocyte %Ordered By: Trace Lowery on 04-06-2023 Monocytes/100 WBC (Bld) 6.7 % Normal . [facility] Comment on above: Performed By: #### H EPATIC, RAEGAN, CBC, LIPASE, BMP #### [address] Automated neutrophil %Ordere d By: Trace Lowery on 04-06-2023 Neutrophils/100 WBC (Bld) 51.6 % Normal . [facility] Comment on above: Performed By: #### H EPATIC, RAEGAN, CBC, LIPASE, BMP #### [address] Automated urine color determ inationOrdered By: Trace Lowery on 04-06-2023 Color (U) Yellow Normal Yellow [facility] Comment on above: Order Comment: Name Collection Type:: Clean-Voided Midstream Performed By: #### A CORY, BRITTANIECG, CUU #### [address] Basic Metabolic Panelon 03-19 Creatinine Clr Calc Pharmacy 98.98 Normal [facility] Comment on above: Performed By: #### A DDONUAJESSICA, UHCG, CUU #### [address] GFR/1.73 sq M.predicted MDRD (S/P/Bld) [Vol rate/Area] mL/min/{1.73_m2} Normal [facility] Comment on above: Performed By: #### A DDONUAPLUS, UHCG, CUU #### [address] Bilirubin Test strip Ql (U)O rdered By: Trace Lowery on 04-06-2023 Bilirubin Ql (U) Negative Negative [facility] Bilirubin.direct [Mass/volum e] in Serum or PlasmaOrdered By: Trace Lowery on 04-06-2023 Bilirubin.direct [Mass/Vol] 0.10 mg/dL 0.03-0.18 [facility] Bilirubin.total [Mass/volume ] in Serum or PlasmaOrdered By: Trace Lowery on 04-06-2023 Bilirubin [Mass/Vol] 0.4 mg/dL Normal 0.3-1.0 [facility] Comment on above: Performed By: #### A DDONUAPLUS, UHCG, CUU #### [address] abdomen pelvis w conon CT abdomen pelvis w con [facility] [place] [address] [place] [address] CT Scan Report Signed Patient: Abbey Garcia MR#: [id number] : 1990 Acct:[id number] Age/Sex: 33 / F ADM Date: 04/06/23 Loc: ER Room: Type: [facility] ER Attending Dr: Copies to: AGA [...] Maricruz Hutchinson M.D.04/06/2023 1:50 PM Dictation Location: [place] [address] Transcribed By: SULEMA 04/06/23 1350 Dictated By: Maricruz Hutchinson MD 04/06/23 1341 Signed By: 04/06/23 1350 Normal [facility] Calcium [Mass/volume] in Ser um or PlasmaOrdered By: Trace Lowery on 04-06-2023 Calcium [Mass/Vol] 9.1 mg/dL Normal 8.6-10.3 [facility] Comment on above: Performed By: #### A CORY ELIS, CUU #### [facility] [address] Carbon dioxide, total [Moles /volume] in Serum or PlasmaOrdered By: Trace Lowery on 04-06-2023 CO2 [Moles/Vol] 23.3 mmol/L Normal 21.0-31.[address] [facility] Comment on above: Performed By: #### A JOSESITO RAY, CUU #### [facility] [address] [place] [id number] [place] Chloride [Moles/volume] in S elder or PlasmaOrdered By: Trace Lowery on 04-06-2023 Chloride [Moles/Vol] 109 mmol/L High 98-107 [facility] Comment on above: Performed By: #### A DDONUAPLUS, UHCG, CUU #### [address] Complete Blood Count Auto Di ffon 04-06-2023 Mean Corpuscular HGB Conc 34.2 g/dL Normal 32.0-35.0 [facility] Comment on above: Performed By: #### H EPATIC, RAEGAN, CBC, LIPASE, BMP #### [address] Monocytes/100 WBC (Bld) 15.98 % Normal 0.00-20.00 [facility] Comment on above: Performed By: #### H EPATIC, RAEGAN, CBC, LIPASE, BMP #### [address] NRBC% 0.1 /100{WBC} Normal 0-0.5 [facility] Comment on above: Performed By: #### H EPATIC, RAEGAN, CBC, LIPASE, BMP #### [address] Creatinine [Mass/volume] in Serum or PlasmaOrdered By: Trace Lowery on 04-06-2023 Creatinine [Mass/Vol] 0.86 mg/dL Normal 0.60-1.20 [facility] Comment on above: Performed By: #### A DDONUAPLUS, UHCG, CUU #### [place] [address] [place] Dipstick and Microscopicon 0 04-06-2023 Appearance (U) Cloudy Critically abnormal Clear [facility] Comment on above: Order Comment: Name Collection Type:: Clean-Voided Midstream Performed By: #### A DDONUAPLUS, UHCG, CUU #### [address] Bacteria,Urine None Seen Normal None Seen [facility] Comment on above: Order Comment: Name Collection Type:: Clean-Voided Midstream Performed By: #### A DDONUAPLUS, UHCG, CUU #### [address] Bilirubin,Urine Negative Normal Negative [facility] Comment on above: Order Comment: Name Collection Type:: Clean-Voided Midstream Performed By: #### A DDONUAPLUS, UHCG, CUU #### [address] Glucose Ql (U) Normal Normal Normal [facility] Comment on above: Order Comment: Name Collection Type:: Clean-Voided Midstream Performed By: #### A DDONUAPLUS, UHCG, CUU #### [address] Hyaline Casts,Urine 0-8 Normal 0-8 [facility] Comment on above: Order Comment: Name Collection Type:: Clean-Voided Midstream Result Comment: PERF ORMED BY: [place] [address] PATHOLOGIST MOLDER OPERATOR BAUTISTA BAKER M.D. Performed By: #### A DDONUAPLUS, UHCG, CUU #### [address] Ketones Ql (U) Trace High Negative [facility] Comment on above: Order Comment: Name Collection Type:: Clean-Voided Midstream Performed By: #### A DDONUAPLUS, UHCG, CUU #### [address] Leukocyte esterase Test strip Ql (U) Negative Normal Negative [facility] Comment on above: Order Comment: Name Collection Type:: Clean-Voided Midstream Performed By: #### A DDONUAPLUS, UHCG, CUU #### [address] Nitrite,Urine Negative Normal Negative [facility] Comment on above: Order Comment: Name Collection Type:: Clean-Voided Midstream Performed By: #### A DDONUAPLUS, UHCG, CUU #### [address] Occult Blood,Urine Negative Normal Negative [facility] Comment on above: Order Comment: Name Collection Type:: Clean-Voided Midstream Result Comment: PERF ORMED BY: [place] [address] PATHOLOGIST MOLDER OPERATOR BAUTISTA BAKER M.D. Performed By: #### A DDONUAPLUS, UHCG, CUU #### [address] Protein,Urine Negative Normal Negative [facility] Comment on above: Order Comment: Name Collection Type:: Clean-Voided Midstream Performed By: #### A DDONUAPLUS, UHCG, CUU #### [address] RBC,Urine 1-2 Normal 0-4 [facility] Comment on above: Order Comment: Name Collection Type:: Clean-Voided Midstream Performed By: #### A DDONUAPLUS, UHCG, CUU #### [place] [address] [place] Specificy [place],Urine 1.026 Normal 1.001-1.030 [facility] Comment on above: Order Comment: Name Collection Type:: Clean-Voided Midstream Performed By: #### A DDONUAPLUS, UHCG, CUU #### [place] [address] [place] Squamous Epithelial Cell,Urine 3-4 High 0-2 [facility] Comment on above: Order Comment: Name Collection Type:: Clean-Voided Midstream Performed By: #### A DDONUAPLUS, UHCG, CUU #### [place] [address] [place] Urobilinogen,Urine Normal Normal Normal [facility] Comment on above: Order Comment: Name Collection Type:: Clean-Voided Midstream Performed By: #### A DDONUAPLUS, UHCG, CUU #### [place] [address] [place] WBC,Urine 3-4 Normal 0-4 [facility] Comment on above: Order Comment: Name Collection Type:: Clean-Voided Midstream Performed By: #### A DDONUAPLUS, BRITTANIECG, CUU #### [facility] [address] Erythrocyte distribution wid th [Ratio] by Automated countOrdered By: Trace Lowery on 04-06-2023 Erythrocyte distribution width (RBC) [Ratio] 13.9 % Normal 11.9-15.3 [facility] Comment on above: Performed By: #### H EPATIC, RAEGAN, CBC, LIPASE, BMP #### [address] Erythrocytes [#/volume] in B lood by Automated countOrdered By: Trace Lowery on 04-06-2023 RBC (Bld) [#/Vol] 4.17 10*6/uL Normal 3.60-5.00 [facility] Comment on above: Performed By: #### H EPATIC, RAEGAN, CBC, LIPASE, BMP #### [address] Glucose [Mass/volume] in Ser um or PlasmaOrdered By: Trace Lowery on 04-06-2023 Glucose [Mass/Vol] 77 mg/dL Normal 70-100 [facility] Comment on above: ADA recommended refe rence rangeRandom Glucose Reference Range is dependent on time and content of last meal. Glucose of more than 200 mg/dL in a nonstressed, ambulatory subject supports the diagnosis of Diabetes Mellitus. Result Comment: [place] om Glucose Reference Range is dependent on time and content of last meal. Glucose of more than 200 mg/dL in a nonstressed, ambulatory subject supports the diagnosis of Diabetes Mellitus. ADA recommended reference range Performed By: #### A DDONUAPLUS, UHCG, CUU #### [address] HCG ( test) [place].rapi d Ql (U)Ordered By: Trace Lowery on 04-06-2023 HCG ( test) Ql (U) Negative [facility] HCG,Urineon 04-06-2023 Beta HCG ( test) Ql (U) Negative Normal [facility] Comment on above: Result Comment: PERF ORMED BY: [place] [address] PATHOLOGIST MOLDER OPERATOR BAUTISTA BAKER M.D. Performed By: #### A DDONUAPLUS, UHCG, CUU #### [address] Hematocrit [Volume Fraction] of Blood by Automated countOrdered By: Trace Lowery on 04-06-2023 Hematocrit (Bld) [Volume fraction] 37.4 % Normal 34.0-46.4 [facility] Comment on above: Performed By: #### H RAÚL, RAEGAN, CBC, LIPASE, BMP #### [address] Hemoglobin [Mass/volume] in BloodOrdered By: Trace Lowery on 04-06-2023 Hemoglobin (Bld) [Mass/Vol] 12.8 g/dL Normal 11.8-15.4 [facility] Comment on above: Performed By: #### H EPATIC, RAEGAN, CBC, LIPASE, BMP #### [address] Hepatic Panelon 04-06-2023 Albumin [Mass/Vol] 4.5 g/dL Normal 3.5-5.7 [facility] Comment on above: Performed By: #### A DDONUAPLUS, UHCG, CUU #### [address] Bilirubin,Indirect 0.3 mg/dL Normal [facility] Comment on above: Performed By: #### A DDONUAPLUS, UHCG, CUU #### [address] Bilirubin.indirect [Mass/Vol] 0.10 mg/dL Normal 0.03-0.18 [facility] Comment on above: Performed By: #### A DDONUAPLUS, UHCG, CUU #### [address] [place] [address] [place] Ketones Auto test strip (U) [Mass/Vol]Ordered By: Trace Lowery on 04-06-2023 Ketones (U) [Mass/Vol] Trace Negative [facility] Laboratory - UrinalysisOrder ed By: Trace Lowery on 04-06-2023 Hyaline casts LM Ql (Urine sed) 0-8 [LPF] 0-8 [facility] Leukocytes [#/volume] correc darvin for nucleated erythrocytes in Blood by Automated counOrdered By: Tracetamiko Lowery on 04-06-2023 WBC corrected for nucl RBC Auto (Bld) [#/Vol] 3.8 10*3/uL 3.8-11.6 [facility] Leukocytes [#/volume] in Blo od by Automated countOrdered By: Trace Lowery on 04-06-2023 WBC (Bld) [#/Vol] 3.8 10*3/uL Normal 3.8-11.6 [facility] Comment on above: Performed By: #### H EPATIC, RAEGAN, CBC, LIPASE, BMP #### [facility] [address] [place] [address] Lipase [Enzymatic activity/v olume] in Serum or PlasmaOrdered By: Trace Lowery on 04-06-2023 Lipase [Catalytic activity/Vol] 86.0 U/L High 11.0-82.0 [facility] Comment on above: Result Comment: PERF ORMED BY: [address] [place] [address] PATHOLOGIST MOLDER OPERATOR BAUTISTA BAKER M.D. Performed By: #### A DDONUAPLUS, UHCG, CUU #### [place] [address] [place] Lymphocytes [#/volume] in Bl ood by Automated countOrdered By: Trace Lowery on 04-06-2023 Lymphocytes (Bld) [#/Vol] 1.4 10*3/uL Normal 1.00-4.8 [facility] Comment on above: Performed By: #### H EPATIC, RAEGAN, CBC, LIPASE, BMP #### [address] Lymphocytes/100 leukocytes i n Blood by Automated countOrdered By: Trace Leosimore on 04-06-2023 Lymphocytes/100 WBC (Bld) 37.6 % Normal . [facility] Comment on above: Performed By: #### H EPATIC, RAEGAN, CBC, LIPASE, BMP #### [address] MCH [Entitic mass] by Automa darvin countOrdered By: Trace Leosimore on 04-06-2023 MCH (RBC) [Entitic mass] 30.6 pg Normal 24.7-34.3 [facility] Comment on above: Performed By: #### H EPATIC, RAEGAN, CBC, LIPASE, BMP #### [address] MCHC Auto (RBC) [Mass/Vol]Or dered By: Trace Leosimore on 04-06-2023 MCHC (RBC) [Mass/Vol] 34.2 g/dL 32.0-35.0 [facility] MCV [Entitic volume] by Auto mated countOrdered By: Trace Lowery on 04-06-2023 MCV (RBC) [Entitic vol] 89.7 fL Normal 80-100 [facility] [place] Comment on above: Performed By: #### H EPATIC, RAEGAN, CBC, LIPASE, BMP #### [address] Monocyte distribution width [Entitic volume] in Blood by AutomatedOrdered By: Trace Leosimore on 04-06-2023 Monocyte distribution width Auto (Bld) [Entitic vol] 15.98 % 0.00-20.00 [facility] Neutrophils [#/volume] in Bl ood by Automated countOrdered By: Trace Leosimore on 04-06-2023 Neutrophils (Bld) [#/Vol] 2.0 10*3/uL Normal 1.8-7.7 [facility] Comment on above: Performed By: #### H EPATIC, RAEGAN, CBC, LIPASE, BMP #### [place] [address] Nitrite Test strip Ql (U)Ord ered By: Trace Lowery on 04-06-2023 Nitrite Ql (U) Negative Negative [facility] No Panel InformationOrdered By: Trace Lowery on 04-06-2023 Estimated GFR (CKD-EPI) > 60.0 mL/Min [facility] Creatinine Clearance (Chem 98.98 [facility] Nucleated erythrocytes [Pres ence] in Blood by Automated countOrdered By: Trace Lowery on 04-06-2023 Nucleated RBC Auto Ql (Bld) 0.1 /100{WBC} 0-0.5 [facility] Platelet mean volume [Entiti c volume] in Blood by Automated countOrdered By: Trace Lowery on 04-06-2023 Platelet mean volume (Bld) [Entitic vol] 9.7 fL Normal 6.3-10.7 [facility] Comment on above: Performed By: #### H EPATIC, RAEGAN, CBC, LIPASE, BMP #### [address] Platelets [#/volume] in Bloo d by Automated countOrdered By: Trace Lowery on 04-06-2023 Platelets (Bld) [#/Vol] 210 10*3/uL Normal 150-450 [facility] Comment on above: Performed By: #### H EPATIC, RAEGAN, CBC, LIPASE, BMP #### [address] Potassium [Moles/volume] in Serum or PlasmaOrdered By: Trace Lowery on 04-06-2023 Potassium [Moles/Vol] 3.7 mmol/L Normal 3.5-5.1 [facility] Comment on above: Performed By: #### A DDONUAJESSICA, UHCG, CUU #### [address] Protein Auto test strip (U) [Mass/Vol]Ordered By: Trace Lowery on 04-06-2023 Protein (U) [Mass/Vol] Negative Negative [facility] Protein [Mass/volume] in Ser um or PlasmaOrdered By: Trace Bullimore on 04-06-2023 Protein [Mass/Vol] 7.1 g/dL Normal 6.4-8.9 [facility] Comment on above: Performed By: #### A ALIYAH RAYG, CUU #### [facility] [address] [place] [address] Serum globulin measurement b y calculation (mass/volume)Ordered By: Trace Bullimore on 04-06-2023 Globulin (S) [Mass/Vol] 2.6 g/dL Normal [facility] Comment on above: Performed By: #### A JOSESITO RAY, CUU #### [address] Serum or plasma albumin/glob ulin mass ratioOrdered By: Trace Bullimore on 04-06-2023 Albumin/Globulin [Mass ratio] 1.7 {ratio} [facility] Comment on above: Performed By: #### A NISHONUAALIYAH LOPEZG, CUU #### [facility] [address] [place] [address] Serum or plasma anion gap de terminationOrdered By: Trace Bullimore on 04-06-2023 Anion gap [Moles/Vol] 12.4 mmol/L Normal 6.0-15.0 [facility] Comment on above: Performed By: #### A DDONUABRITTANIE LOPEZCG, CUU #### [facility] [address] [place] [address] Serum or plasma non-glucuron idated bilirubin measurement (mass/volume)Ordered By: Trace Bullimore on 04-06-2023 Bilirubin.indirect [Mass/Vol] 0.3 mg/dL [facility] Sodium [Moles/volume] in Ser um or PlasmaOrdered By: Trace Bullimore on 04-06-2023 Sodium [Moles/Vol] 141 mmol/L Normal 136-145 [facility] Comment on above: Performed By: #### A DDONUAPLUS, BRITTANIECG, CUU #### [address] Specific gravity Auto test s trip (U) [Rel density]Ordered By: Trace Lowery on 04-06-2023 Specific gravity (U) [Rel density] 1.026 1.001-1.030 [facility] Squamous epithelial cells de tection in urine sediment by light microscopyOrdered By: Trace Lowery on 04-06-2023 Epithelial cells.squamous LM Ql (Urine sed) 3-4 [HPF] 0-2 [facility] Urea nitrogen [Mass/volume] in Serum or PlasmaOrdered By: Trace Lowery on 04-06-2023 Urea nitrogen [Mass/Vol] 10 mg/dL Normal 7-25 [facility] Comment on above: Performed By: #### A JOSESITO RAY CUU #### [facility] [address] [place] [address] Urine bacteria detection by automated methodOrdered By: Trace Lowery on 04-06-2023 Bacteria Auto Ql (U) None seen None Seen [facility] Urine clarity by refractomet ry automatedOrdered By: Trace Lowery on 04-06-2023 Clarity Refractometry automated (U) Cloudy Clear [facility] Urine glucose measurement by automated test strip (mass/volume)Ordered By: Trace Lowery on 04-06-2023 Glucose Auto test strip (U) [Mass/Vol] Normal mg/dL Normal [facility] Urine hemoglobin detection b y automated test stripOrdered By: Trace Lowery on 04-06-2023 Hemoglobin Auto test strip Ql (U) Negative Negative [facility] Urine leukocyte esterase det ection by automated test stripOrdered By: Trace Lowery on 04-06-2023 Leukocyte esterase Auto test strip Ql (U) Negative Negative [facility] Urine pH measurement by auto mated test stripOrdered By: Trace Lowery on 04-06-2023 pH (U) 7.5 [pH] Normal 5.0-9.0 [facility] Comment on above: Order Comment: Name Collection Type:: Clean-Voided Midstream Performed By: #### A JOSESITO RAY CUU #### [facility] [address] [id number] [facility] Urobilinogen Auto test strip (U) [Mass/Vol]Ordered By: Trace Lowery on 04-06-2023 Urobilinogen (U) [Mass/Vol] Normal mg/dL Normal [facility] BMPon 04-02-2023 Anion gap [Moles/Vol] 10 mmol/L Normal -16 [facility] Comment on above: Performed By: #### 2 798906, 1865831, 3663380, 88203413, 77453460, 79039161, 3053316, 78371842 ####[facility] [address] [place] [address] BUN/Creat Ratio 14 No Units Normal - [facility] Comment on above: Performed By: #### 2 075325, 0140752, 5744978, 98792476, 84160926, 23478014, 2157624, 28379371 ####[facility] [address] [place] [address] Calcium [Mass/Vol] 8.4 mg/dL Low 8.9-11.1 [facility] Comment on above: Performed By: #### 2 742881, 2725352, 3900886, 53403067, 05219452, 25336062, 5333103, 24248780 ####[facility] [address] [place] [address] Chloride [Moles/Vol] 111 mmol/L Normal 101-111 [facility] Comment on above: Performed By: #### 2 472924, 6654990, 8727647, 45374359, 01636336, 60043148, 5174187, 84999825 ####[facility] [address] [place] [address] CO2 [Moles/Vol] 21 mmol/L Normal 21-31 [facility] Comment on above: Performed By: #### 2 621755, 8905470, 8815884, 92638950, 27603781, 92265175, 8461151, 69584640 ####[facility] [address] [place] [address] Creatinine [Mass/Vol] 0.7 mg/dL Normal 0.5-1.3 [facility] Comment on above: Performed By: #### 2 005363, 1871422, 5781422, 94037014, 76291734, 63729650, 9388631, 42627713 ####[facility] [address] [place] [address] Glucose [Mass/Vol] 86 mg/dL Normal 55-199 [facility] Comment on above: Performed By: #### 2 820986, 7184643, 5391874, 05405402, 34102176, 43775740, 9717221, 19635130 ####[facility] [address] [place] [address] Potassium [Moles/Vol] 3.9 mmol/L Normal 3.5-5.3 [facility] Comment on above: Performed By: #### 2 469787, 1559335, 2026894, 41191967, 57933126, 54672676, 8241283, 95191853 ####[facility] [address] [place] [address] Sodium [Moles/Vol] 138 mmol/L Normal 135-145 [facility] Comment on above: Performed By: #### 2 321646, 2473053, 3566918, 67020326, 36027885, 45282701, 0786175, 55439994 ####[facility] [address] [place] [address] Urea nitrogen [Mass/Vol] 10 mg/dL Normal 5-21 [facility] Comment on above: Performed By: #### 2 333777, 3810508, 9095234, 92550788, 39083754, 28495062, 0593108, 14274049 ####[facility] [address] [place] [address] BNPon 04-02-2023 Int Ctr BNP Pass Normal [facility] Comment on above: Order Comment: 2nd d raw rejected due to clotted speciment. Phlebotomists notified of redraw by message. [facility] 04/02/2023 12:28:38 EST Performed By: #### 2 906878, 9290004, 6574631, 60497968, 94144498, 76724292, 9202751, 87141342 ####[facility] [address] [place] [address] Natriuretic peptide B (Bld) [Mass/Vol] 25 pg/mL Normal 5-80 [facility] Comment on above: Order Comment: 2nd d raw rejected due to clotted speciment. Phlebotomists notified of redraw by message. [facility] 04/02/2023 12:28:38 EST Performed By: #### 2 178032, 6902751, 2432475, 48969198, 78688863, 29048073, 0696088, 13510840 ####[facility] [address] [place] [address] CBC w/ Auto Diffon 4 Basophil Absolute 0.0 E9/L Normal 0.0-0.2 [facility] Comment on above: Order Comment: speci men rejected due to clot. Phlebotomists notified by message. [facility] 04/02/2023 11:56:19 EST\2nd draw rejected due to clot. Phlebotomists notified by message. [facility] 04/02/2023 12:27:56 EST Performed By: #### 2 889587, 2894304, 1867843, 79666759, 28391100, 13695698, 7775784, 43315073 ####[facility] [address] [place] [address] Basophils/100 WBC (Bld) 0.8 % Normal 0.0-2.0 [facility] Comment on above: Order Comment: speci men rejected due to clot. Phlebotomists notified by message. [facility] 04/02/2023 11:56:19 EST\2nd draw rejected due to clot. Phlebotomists notified by message. [facility] 04/02/2023 12:27:56 EST Performed By: #### 2 793926, 0990942, 8459778, 65732095, 80632125, 07650279, 1520939, 91202128 ####[facility] [address] [place] [address] Eos Absolute 0.2 E9/L Normal 0.0-0.5 [facility] Comment on above: Order Comment: speci men rejected due to clot. Phlebotomists notified by message. [facility] 04/02/2023 11:56:19 EST\2nd draw rejected due to clot. Phlebotomists notified by message. [facility] 04/02/2023 12:27:56 EST Performed By: #### 2 757159, 1859950, 0783438, 24899651, 11528293, 65186107, 3066839, 94024220 ####[facility] [address] [place] [address] Eosinophils/100 WBC (Bld) 3.1 % Normal 0.0-8.0 [facility] Comment on above: Order Comment: speci men rejected due to clot. Phlebotomists notified by message. [facility] 04/02/2023 11:56:19 EST\2nd draw rejected due to clot. Phlebotomists notified by message. [facility] 04/02/2023 12:27:56 EST Performed By: #### 2 816927, 9929419, 1335928, 64531050, 01382585, 48610879, 6972151, 40737325 ####[facility] [address] [place] [address] Erythrocyte distribution width (RBC) [Ratio] 14.0 % Normal 10.9-14.2 [facility] Comment on above: Order Comment: speci men rejected due to clot. Phlebotomists notified by message. [facility] 04/02/2023 11:56:19 EST\2nd draw rejected due to clot. Phlebotomists notified by message. [facility] 04/02/2023 12:27:56 EST Performed By: #### 2 350766, 4745046, 7069178, 22739198, 18053162, 47663288, 5537456, 12537786 ####[facility] [address] [place] [address] Hematocrit (Bld) [Volume fraction] 38.0 % Normal 34.0-46.0 [facility] Comment on above: Order Comment: speci men rejected due to clot. Phlebotomists notified by message. [facility] 04/02/2023 11:56:19 EST\2nd draw rejected due to clot. Phlebotomists notified by message. [facility] 04/02/2023 12:27:56 EST Performed By: #### 2 078184, 0652728, 7900309, 99985980, 98653515, 36413167, 0668203, 90811268 ####[facility] [address] [place] [address] Hemoglobin (Bld) [Mass/Vol] 12.8 g/dL Normal 12.0-16.0 [facility] Comment on above: Order Comment: speci men rejected due to clot. Phlebotomists notified by message. [facility] 04/02/2023 11:56:19 EST\2nd draw rejected due to clot. Phlebotomists notified by message. [facility] 04/02/2023 12:27:56 EST Performed By: #### 2 874240, 4757789, 2130504, 35477223, 14200755, 33929115, 7419484, 73069720 ####[facility] [address] [place] [address] Lymph Absolute 1.8 E9/L Normal 1.0-4.0 [facility] Comment on above: Order Comment: speci men rejected due to clot. Phlebotomists notified by message. [facility] 04/02/2023 11:56:19 EST\2nd draw rejected due to clot. Phlebotomists notified by message. [facility] 04/02/2023 12:27:56 EST Performed By: #### 2 060756, 6665101, 9067089, 23079770, 48170163, 43992065, 1396498, 26193965 ####[facility] [address] [place] [address] Lymphocytes/100 WBC (Bld) 34.1 % Normal 14.0-50.0 [facility] Comment on above: Order Comment: speci men rejected due to clot. Phlebotomists notified by message. [facility] 04/02/2023 11:56:19 EST\2nd draw rejected due to clot. Phlebotomists notified by message. [facility] 04/02/2023 12:27:56 EST Performed By: #### 2 549921, 9156611, 0796439, 93311708, 92432360, 26851193, 2994071, 96087922 ####[facility] [address] [place] [address] MCH (RBC) [Entitic mass] 29.8 pg Normal 27.0-34.0 [facility] Comment on above: Order Comment: speci men rejected due to clot. Phlebotomists notified by message. [facility] 04/02/2023 11:56:19 EST\2nd draw rejected due to clot. Phlebotomists notified by message. [facility] 04/02/2023 12:27:56 EST Performed By: #### 2 191756, 8171486, 5112187, 67571166, 73948526, 17233115, 8962120, 68603787 ####[facility] [address] [place] [address] MCHC (RBC) [Mass/Vol] 33.5 g/dL Normal 31.4-36.0 [facility] Comment on above: Order Comment: speci men rejected due to clot. Phlebotomists notified by message. [facility] 04/02/2023 11:56:19 EST\2nd draw rejected due to clot. Phlebotomists notified by message. [facility] 04/02/2023 12:27:56 EST Performed By: #### 2 408636, 1687864, 8175497, 53693646, 01910609, 92256962, 0416815, 04025346 ####[facility] [address] [place] [address] MCV (RBC) [Entitic vol] 88.9 fL Normal 80.0-100.0 [facility] Comment on above: Order Comment: speci men rejected due to clot. Phlebotomists notified by message. [facility] 04/02/2023 11:56:19 EST\2nd draw rejected due to clot. Phlebotomists notified by message. [facility] 04/02/2023 12:27:56 EST Performed By: #### 2 457075, 4177821, 9478842, 56197105, 17745109, 61041413, 4981751, 40525751 ####[facility] [address] [place] [address] [place] Absolute 0.4 E9/L Normal 0.2-1.0 [facility] Comment on above: Order Comment: speci men rejected due to clot. Phlebotomists notified by message. [facility] 04/02/2023 11:56:19 EST\2nd draw rejected due to clot. Phlebotomists notified by message. [facility] 04/02/2023 12:27:56 EST Performed By: #### 2 950873, 2260437, 8006821, 72426265, 87045786, 75192053, 8200672, 01175052 ####[facility] [address] [place] [address] Monocytes/100 WBC (Bld) 7.4 % Normal 4.0-14.0 [facility] Comment on above: Order Comment: speci men rejected due to clot. Phlebotomists notified by message. [facility] 04/02/2023 11:56:19 EST\2nd draw rejected due to clot. Phlebotomists notified by message. [facility] 04/02/2023 12:27:56 EST Performed By: #### 2 712097, 6130436, 9204196, 91230009, 81027054, 87497083, 9500300, 41071276 ####[facility] [address] [place] [address] Neutro Absolute 2.9 E9/L Normal 2.0-7.5 [facility] Comment on above: Order Comment: speci men rejected due to clot. Phlebotomists notified by message. [facility] 04/02/2023 11:56:19 EST\2nd draw rejected due to clot. Phlebotomists notified by message. [facility] 04/02/2023 12:27:56 EST Performed By: #### 2 869752, 6643036, 1051033, 20393063, 60117667, 43030189, 6792893, 48006793 ####[facility] [address] [place] [address] Neutro Auto 54.6 % Normal 36.0-75.0 [facility] Comment on above: Order Comment: speci men rejected due to clot. Phlebotomists notified by message. [facility] 04/02/2023 11:56:19 EST\2nd draw rejected due to clot. Phlebotomists notified by message. [facility] 04/02/2023 12:27:56 EST Performed By: #### 2 337786, 2686838, 3110400, 57108244, 23151669, 34518398, 1838215, 62017980 ####[facility] [address] [place] [address] Platelet 204.0 E9/L Normal 150.0-500.0 [facility] Comment on above: Order Comment: speci men rejected due to clot. Phlebotomists notified by message. [facility] 04/02/2023 11:56:19 EST\2nd draw rejected due to clot. Phlebotomists notified by message. [facility] 04/02/2023 12:27:56 EST Result Comment: Veri fied with slide review Performed By: #### 2 700443, 2604296, 8079623, 73119989, 42918724, 17817139, 5356781, 24751241 ####[facility] [address] [place] [address] Platelet mean volume (Bld) [Entitic vol] 9.8 fL Normal 6.4-10.8 [facility] Comment on above: Order Comment: speci men rejected due to clot. Phlebotomists notified by message. [facility] 04/02/2023 11:56:19 EST\2nd draw rejected due to clot. Phlebotomists notified by message. [facility] 04/02/2023 12:27:56 EST Performed By: #### 2 186920, 9666259, 9450141, 85848763, 63378918, 86170745, 5086839, 32513831 ####[facility] [address] [place] [address] RBC 4.3 E12/L Normal 4.3-5.9 [facility] Comment on above: Order Comment: speci men rejected due to clot. Phlebotomists notified by message. [facility] 04/02/2023 11:56:19 EST\2nd draw rejected due to clot. Phlebotomists notified by message. [facility] 04/02/2023 12:27:56 EST Performed By: #### 2 162601, 4761362, 5723544, 56913408, 81062293, 82747556, 2530334, 34454467 ####[facility] [address] [place] [address] WBC 5.3 E9/L Normal 4.0-11.0 [facility] Comment on above: Order Comment: speci men rejected due to clot. Phlebotomists notified by message. [facility] 04/02/2023 11:56:19 EST\2nd draw rejected due to clot. Phlebotomists notified by message. [facility] 04/02/2023 12:27:56 EST Performed By: #### 2 896592, 8886748, 0102379, 76116618, 33257525, 20232778, 7153589, 80569127 ####[facility] [address] [place] [address] CHEMISTRYOrdered By: SYSTEM SYSTEM on 04-02-2023 Troponin [...] Sensitivity Troponin I Instructions For Use, Alan [place], September 2017) Albumin [Mass/Vol] 3.9 g/dL Normal [...] Sensitivity Troponin I Instructions For Use, Alan [place], September 2017) Anion gap [Moles/Vol] 10 mmol/L [...] 25 pg/mL Normal 5 - 80 pg/mL [facility] COAGULATIONOrdered By: Gladys Arroyo on 04-02-2023 aPTT Coag (PPP) [Time] 33.2 s Normal 25.1 - 36.5 second(s) [facility] Auto Coag Comment on above: Interpretive Data: [...] the same coagulation reagent and instrumentation as [facility]. Currently there are no coagulation studies available worldwide for children to 14 days, and no normal ranges. Heparin therapeutic range (represented by Anti-Factor Xa activity of 0.2 - 0.4 U/mL) corresponds to PTT of 56.6 - 109.0 sec. Fibrin D-dimer FEU (PPP) [Mass/Vol] 541 ng/mL FEU Invalid Interpretation Code 215 - 500 ng/mL FEU [facility] Auto Coag Comment on above: Result Comment: [...] [Relative time] 1.14 {INR} Invalid Interpretation Code [facility] Auto Coag Comment on above: Interpretive Data: I NR results are specifically intended to assess patients stabilized on long-term Anticoagulation therapy suggested INR s Less Intensive Anticoagulation 2.0 3.0 Conventional Range 3.0 4.5 PT Coag (PPP) [Time] 12.7 s High 9.4 - 12.5 second(s) [facility] Auto Coag Comment on above: Interpretive Data: [...] the same coagulation reagent and instrumentation as [facility]. Currently there are no coagulation studies available worldwide for children to 14 days, and no normal ranges. CTA Abdomen and Pelvison CTA Abdomen and Pelvis Normal [facility] CTA Cheston 04-02-2023 CTA Chest Normal [facility] Consent for Treatmenton 03-18 Consent for Treatment [id number]#1.00TIFF Normal [facility] D-Dimeron 04-02-2023 Fibrin D-dimer FEU (PPP) [Mass/Vol] 541 [id number] Abnormal 215-500 [facility] Comment on above: Order Comment: speci men rejected due to clot. Phlebotomists notified by message. [facility] 04/02/2023 12:33:03 EST Result Comment: Resu lts Called To TAMIKO/Mauricio [...] skin infectionsLiver cirrhosisPregnancy Performed By: #### 2 356221, 0442203, 0301396, 16016802, 66655661, 47173853, 7238209, 30745759 ####[facility] [address] [place] [address] Discharge Instructionson Discharge Instructions [id number]#1.00TIFF Normal [facility] ED Clinical Summaryon 2023 [facility] 24 ED Note-Physician Normal [facility] Comment on above: Result Comment: Elec tronically Signed By: Jose Ramon Martinez, Ashutosh Coker\Date and Time Signed: 04/02/23 17:20 EST ED Patient Education Noteon 04-02-2023 ED Patient Education Note Normal [facility] ED Patient Summaryon 024 ED Patient Summary Normal [facility] Free T4on 04-02-2023 Free T4 [Mass/Vol] 0.75 ng/dL Normal 0.58-1.64 [facility] Comment on above: Performed By: #### 2 606411, 70754163, 5949073, 8467401 ####[facility] [address] [place] [address] HEMATOLOGYOrdered By: SYSTEM SYSTEM on 04-02-2023 Basophil [...] Normal 80.0 - 100.0 fL Remisol Heme [place] Absolute 0.4 E9/L Normal 0.2 - 1.0 [...] 04-02-2023 Albumin [Mass/Vol] 3.9 g/dL Normal 3.3-5.0 [facility] Comment on above: Performed By: #### 2 945413, 02473988, 3972929, 4266087 ####[facility] [address] [place] [address] Albumin/Globulin [Mass ratio] 1.6 {ratio} Normal 1.1-2.2 [facility] Comment on above: Performed By: #### 2 692859, 36793755, 8459378, 2765003 ####[facility] [address] [place] [address] Alk Phos 50 Int._Unit/L Normal 21-98 [facility] Comment on above: Performed By: #### 2 811859, 30804668, 9327398, 9989574 ####[facility] [address] [place] [address] ALT 27 Int._Unit/L Normal 6-46 [facility] Comment on above: Performed By: #### 2 102451, 60165586, 4654778, 4395117 ####[facility] [address] [place] [address] AST 36 Int._Unit/L Normal 5-43 [facility] Comment on above: Performed By: #### 2 276557, 59599152, 5062967, 7514167 ####[facility] [address] [place] [address] Bili Direct 0.0 mg/dL Normal 0.0-0.4 [facility] Comment on above: Performed By: #### 2 704670, [id number], 5318229, 5495382 ####[facility] [address] [place] [address] Bili Indirect 0.3 mg/dL Normal 0.1-0.9 [facility] Comment on above: Performed By: #### 2 163533, 13536198, 9010466, 1389573 ####[address] [address] Bili Total 0.3 mg/dL Normal 0.0-1.1 [facility] Comment on above: Performed By: #### 2 477308, 43538957, 4719294, 0482931 ####[facility] [address] [place] [address] Globulin (S) [Mass/Vol] 2.4 g/dL Normal 1.4-4.0 [facility] Comment on above: Performed By: #### 2 934505, 07074374, 0341134, 0695162 ####[facility] [address] [place] [address] Protein [Mass/Vol] 6.3 g/dL Normal 6.0-7.8 [facility] Comment on above: Performed By: #### 2 101526, 35428761, 1580877, 8701754 ####[facility] [address] [place] [address] Lipase Levelon 04-02-2023 Lipase Lvl 124 unit/L High 13-58 [facility] Comment on above: Performed By: #### 2 222182, 44581579, 6730692, 5635079 ####[facility] [address] [place] [address] Magnesiumon 04-02-2023 Magnesium [Mass/Vol] 1.9 mg/dL Normal 1.3-2.4 [facility] Comment on above: Performed By: #### 2 783383, 1723664, 2991142, 00930362, 84152995, 45273956, 0937409, 69836638 ####[facility] [address] [place] [address] PT & PTTon 04-02-2023 aPTT Coag (PPP) [Time] 33.2 second(s) Normal 25.1-36.5 [facility] Comment on above: Order Comment: speci men rejected due to clot. phlebotomists notified of redraw by message. [facility] 04/02/2023 12:33:39 EST Result Comment: Para meter [...] the same coagulation reagent and instrumentation as [facility]. Currently there are no coagulation studies available worldwide for children to 14 days, and no normal ranges. Heparin therapeutic range (represented by Anti-Factor Xa activity of 0.2 - 0.4 U/mL) corresponds to PTT of 56.6 - 109.0 sec. Performed By: #### 2 143336, 8520545, 9997952, 31026446, 28332006, 57024194, 2567727, 17717622 ####[facility] [address] [place] [address] INR Coag (PPP) [Relative time] 1.14 {INR} Invalid Interpretation Code [facility] Comment on above: Order Comment: speci men rejected due to clot. phlebotomists notified of redraw by message. bm 04/02/2023 12:33:39 EST Result Comment: INR results are specifically intended to assess patients stabilized on long-term Anticoagulation therapy suggested INR?s ?Less Intensive Anticoagulation? 2.0 ? 3.0Conventional Range 3.0 ? 4.5 Performed By: #### 2 067958, 8385274, 4581819, 58035703, 50029022, 92617231, 0221996, 08605638 ####[facility] [address] [place] [address] PT Coag (PPP) [Time] 12.7 second(s) High 9.4-12.5 [facility] Comment on above: Order Comment: speci men rejected due to clot. phlebotomists notified of redraw by message. [facility] 04/02/2023 12:33:39 EST Result Comment: 15 d [...] the same coagulation reagent and instrumentation as [facility]. Currently there are no coagulation studies available worldwide for children to 14 days, and no normal ranges. Performed By: #### 2 649461, 3340780, 8469513, 38910218, 71946621, 12186343, 0200942, 12067558 ####[facility] [address] [place] [address] Pre-Arrival Noteon Pre-Arrival Note Normal [facility] Progress Note-Nurseon 2023 Progress Note-Nurse CT called and verbalized IV infiltrated when attempting to flush. IV removed per this nurse and attempted to place IV with unsuccessful attempts. Dr. Albright and Sabina, RN aware. Normal [facility] TSH With T4fr Reflexon 04-02 TSH Qn 0.11 m[IU]/L Low 0.34-5.60 [facility] Comment on above: Performed By: #### 2 535303, 68706097, 0871813, 6820471 ####[facility] [address] [place] [address] Troponin 0 Hr.on 04-02-2023 Troponin 2.40 pg/mL Low 10.10-27.10 [facility] Comment on above: Result Comment: The 95% CI (Confidence Interval) PPV (Positive Predictive Value) for myocardial infarction in females is 38 pg/mL, in males 51 pg/mL. The results should be used in conjunction with clinical conditions of myocardial infarction.(Access High Sensitivity Troponin I Instructions For Use, [employer], September 2017) Performed By: #### 2 905114, 0169723, 3019191, 02662756, 03794265, 44700077, 5167485, 84315090 ####[facility] [address] [place] [address] Troponin 3 Hr.on 04-02-2023 Troponin I.cardiac [Mass/Vol] ng/mL Low 10.10-27.10 [facility] Comment on above: Result Comment: The 95% CI (Confidence Interval) PPV (Positive Predictive Value) for myocardial infarction in females is 38 pg/mL, in males 51 pg/mL. The results should be used in conjunction with clinical conditions of myocardial infarction.(Access High Sensitivity Troponin I Instructions For Use, [employer], September 2017) Performed By: #### 1 1352294 ####[facility] [address] [place] [address] XR Chest Single Viewon 04-02 XR Chest Single View Normal [facility] eGFRon 04-02-2023 eGFR 116 mL/min/1.73 m2 Normal >=59 [facility] Comment on above: Order Comment: Order added by Discern Expert. Performed By: #### 2 904547, 4997327, 2801419, 57911693, 27565175, 28287127, 3343004, 28107636 ####[facility] [address] [place] [address] Home Health Recordson 2023 Home Health Records [id number] F2#1.00TIFF Normal [facility] Ambulatory Visit Summaryon 0 03-24-2023 Ambulatory Visit Summary Normal [facility] Auth for Release of Medical Recordson 03-24-2023 Auth for Release of Medical Records [id number] 9F#[id number] Normal [facility] Family Medicine Office/Clini c Noteon 03-24-2023 Family Medicine Office/Clinic Note Normal [facility] Comment on above: Result Comment: Elec tronically Signed By: Jaquan Paula\.br\Date and Time Signed: 03/24/23 15:20 EST CBC panel Auto (Bld)on 03-19 Erythrocyte distribution width (RBC) [Ratio] 12.1 % 11.5 - 14.5 % [facility] Hematocrit (Bld) [Volume fraction] 33.7 % Low 36.0 - 46.0 % [facility] Hemoglobin (Bld) [Mass/Vol] 11.9 g/dL Low 12.0 - 16.0 g/dL [facility] Interpretation and review of laboratory results Abnormal [facility] MCH (RBC) [Entitic mass] 30.1 pg 26.0 - 34.[address] [facility] MCHC (RBC) [Mass/Vol] 35.3 g/dL 32.0 - 36.0 g/dL [facility] MCV (RBC) [Entitic vol] 85 fL 80 - [address] [facility] Nucleated RBC/100 WBC (Bld) [Ratio] 0.0 % [facility] Platelets (Bld) [#/Vol] 285 10*3/uL [facility] RBC (Bld) [#/Vol] 3.96 10*6/uL [facility] WBC (Bld) [#/Vol] 4.3 10*3/uL [facility] Erythrocyte distribution width (RBC) [Ratio] 12.1 % Normal 11.5-14.5 [facility] Comment on above: Performed By: #### V ERAB #### MELISA Galvan ([id number]) [facility] ([facility]) [address] [place] [address] [place] Hematocrit (Bld) [Volume fraction] 33.7 % Low 36.0-46.0 [facility] Comment on above: Performed By: #### V ERAB #### MELISA Galvan ([id number]) [facility] ([facility]) [address] [place] [address] [place] Hemoglobin (Bld) [Mass/Vol] 11.9 g/dL Low 12.0-16.0 [facility] Comment on above: Performed By: #### V ERAB #### MELISA Galvan ([id number]) [facility] ([facility]) [id number] [place] [address] [place] MCH (RBC) [Entitic mass] 30.1 pg Normal 26.0-34.0 [facility] Comment on above: Performed By: #### V ERAB #### MELISA Galvan () [facility] ([facility]) [address] [place] [address] [place] MCHC (RBC) [Mass/Vol] 35.3 g/dL Normal 32.0-36.0 [facility] Comment on above: Performed By: #### V ERAB #### MELISA Galvan () [facility] ([facility]) [id number] [place] [address] [place] MCV (RBC) [Entitic vol] 85 fL Normal 80-100 [facility] Comment on above: Performed By: #### V ERAB #### MELISA Galvan ([id number]) [facility] ([facility]) [id number] [place] [address] [place] Nucleated RBC/100 WBC (Bld) [Ratio] 0.0 /100 WBCs Normal 0.0-0.0 [facility] Comment on above: Performed By: #### V ERAB #### MELISA Galvan ([id number]) [facility] ([facility]) [address] [place] [address] [place] Platelets (Bld) [#/Vol] 285 x10*3/uL Normal 150-450 [facility] Comment on above: Performed By: #### Beth ERAB #### MELISA Galvan ([id number]) [facility] ([facility]) [address] [place] [address] [place] RBC (Bld) [#/Vol] 3.96 x10*6/uL Low 4.00-5.20 [facility] Comment on above: Performed By: #### Beth ERAB #### MELISA Galvan ([id number]) [facility] [address] [place] [address] [place] WBC (Bld) [#/Vol] 4.3 x10*3/uL Low 4.4-11.3 [facility] Comment on above: Performed By: #### Beth ERAB #### MELISA Galvan ([id number]) [facility] [address] [place] [address] [place] Comprehensive metabolic 2000 panelon 03-19-2023 Albumin [Mass/Vol] 3.2 g/dL Low 3.5 - 5.0 g/dL [facility] ALP (Bld) [Catalytic activity/Vol] 68 U/L 35 - 125 U/L [facility] ALT [Catalytic activity/Vol] 14 U/L 5 - 40 U/L [facility] Anion gap [Moles/Vol] 13 mmol/L NINF - 19 mmol/L [facility] AST [Catalytic activity/Vol] 27 U/L 5 - 40 U/L [facility] Bilirubin [Mass/Vol] 0.4 mg/dL 0.1 - 1.2 mg/dL [facility] Calcium [Mass/Vol] 8.7 mg/dL 8.5 - 10.4 mg/dL [facility] Chloride [Moles/Vol] 106 mmol/L 97 - 107 mmol/L [facility] CO2 [Moles/Vol] 21 mmol/L Low 24 - 31 mmol/L [facility] Creatinine [Mass/Vol] 0.60 mg/dL 0.40 - 1.60 mg/dL [facility] eGFR - PINF [facility] Comment on above: Calculations of jessica mated GFR are performed using the 2020 CKD-EPI Study Refit equation without the race variable for the IDMS-Traceable creatinine methods. https://jasn.asnjournals.org/content//ASN.74509765 88 Glucose [Mass/Vol] 98 mg/dL 65 - 99 mg/dL [facility] Interpretation and review of laboratory results Abnormal [facility] Potassium [Moles/Vol] 3.7 mmol/L 3.4 - 5.1 mmol/L [facility] Protein [Mass/Vol] 5.7 g/dL Low 5.9 - 7.9 g/dL [facility] Sodium [Moles/Vol] 140 mmol/L 133 - 145 mmol/L [facility] Urea nitrogen [Mass/Vol] 5 mg/dL Low 8 - 25 mg/dL [facility] Albumin [Mass/Vol] 3.2 g/dL Low 3.5-5.0 [facility] Comment on above: Performed By: #### V ERAB #### MELISA Galvan ([id number]) [facility] ([facility]) [address] [place] [address] [place] ALP (Bld) [Catalytic activity/Vol] 68 U/L Normal 35-125 [facility] Comment on above: Performed By: #### V ERAB #### MELISA Galvan ([id number]) [facility] ([facility]) [address] [place] [address] [place] ALT [Catalytic activity/Vol] 14 U/L Normal 5-40 [facility] Comment on above: Performed By: #### V ERAB #### MELISA Galvan ([id number]) [facility] ([facility]) [address] [place] [address] [place] Anion gap [Moles/Vol] 13 mmol/L Normal <=19 [facility] Comment on above: Performed By: #### V ERAB #### MELISA Galvan ([id number]) [facility] ([facility]) [address] [place] [address] [place] AST [Catalytic activity/Vol] 27 U/L Normal 5-40 [facility] Comment on above: Performed By: #### V ERAB #### MELISA Galvan () [facility] ([facility]) [address] [place] [address] [place] Bilirubin [Mass/Vol] 0.4 mg/dL Normal 0.1-1.2 [facility] Comment on above: Performed By: #### V ERAB #### MELISA Galvan () [facility] ([facility]) [address] [place] [address] [place] Calcium [Mass/Vol] 8.7 mg/dL Normal 8.5-10.4 [facility] Comment on above: Performed By: #### V ERAB #### MELISA Galvan () [facility] ([facility]) [address] [place] [address] [place] Chloride [Moles/Vol] 106 mmol/L Normal 97-107 [facility] Comment on above: Performed By: #### V ERAB #### MELISA Galvan () [facility] ([facility]) [address] [place] [address] [place] CO2 [Moles/Vol] 21 mmol/L Low 24-31 [facility] Comment on above: Performed By: #### V ERAB #### MELISA Galvan ([id number]) [facility] ([facility]) [address] [place] [address] [place] Creatinine [Mass/Vol] 0.60 mg/dL Normal 0.40-1.60 [facility] Comment on above: Performed By: #### V ERAB #### MELISA Galvan ([id number]) [facility] ([facility]) [address] [place] [address] [place] GFR/1.73 sq M.predicted MDRD (S/P/Bld) [Vol rate/Area] mL/min/{1.73_m2} Normal >60 [facility] Comment on above: Result Comment: Calc ulations of estimated GFR are performed using the 2020 CKD-EPI Study Refit equation without the race variable for the IDMS-Traceable creatinine methods. https://jasn.asnjournals.org/content//ASN.07342105 88 Performed By: #### V ERAB #### MELISA Galvan ([id number]) [facility] ([facility]) [address] [place] [address] [place] Glucose [Mass/Vol] 98 mg/dL Normal 65-99 [facility] Comment on above: Performed By: #### V ERAB #### MELISA Galvan () [facility] ([employer]) [address] [place] [address] [place] Potassium [Moles/Vol] 3.7 mmol/L Normal 3.4-5.1 [facility] Comment on above: Performed By: #### V ERAB #### MELISA Galvan () [facility] ([facility]) [address] [place] [address] [place] Protein [Mass/Vol] 5.7 g/dL Low 5.9-7.9 [facility] Comment on above: Performed By: #### V ERAB #### MELISA Galvan () [facility] ([facility]) [address] [place] [address] [place] Sodium [Moles/Vol] 140 mmol/L Normal 133-145 [facility] Comment on above: Performed By: #### V ERAB #### MELISA Galvan () [facility] ([facility]) [address] [place] [address] [place] Urea nitrogen [Mass/Vol] 5 mg/dL Low 8-25 [facility] Comment on above: Performed By: #### V ERAB #### MELISA Galvan () [facility] ([facility] [address] [place] [address] EGDon 03-19-2023 Esophagogastroduode noscopy Table formatting from the original result was not included. Normal [facility] EGD Study observation Giorgio reyna 03-19-2023 [...] Tomasa Keyes RN 03/19/2023 1431 Procedure Location [address] [address] Referring Provider Generic Provider [place] No address on file Procedure Provider No name on file [facility] Work Phone: Radiology Study observation (narrative) [facility] Work Phone: EGD Study observation Narrat iveOrdered By: Eve Preston on 03-19-[address] [facility] Work Phone: Home Health Recordson 2023 Home Health Records [id number] 90#1.00TIFF [facility] Surgical pathology studyon 0 03-19-2023 Surgical pathology study Pathology report.total SEE COMMENT Surgical Pathology Case: [id number] Authorizing Provider: Eve Preston MD Collected: 03/19/2023 1431 Ordering Location: [facility] Received: 03/19/[address] [place] [address] Pathologist: Melisa Rodriguez MD Specimen: STOMACH ANTRUM [...] 1 cassette. MCH Gross dissection performed at: [address] [address] Normal [facility] CBC panel Auto (Bld)on 03-18 Erythrocyte distribution width (RBC) [Ratio] 12.5 % 11.5 - 14.5 % [facility] Hematocrit (Bld) [Volume fraction] 37.2 % 36.0 - 46.0 % [facility] Hemoglobin (Bld) [Mass/Vol] 12.1 g/dL 12.0 - 16.0 g/dL [facility] Interpretation and review of laboratory results Abnormal [facility] MCH (RBC) [Entitic mass] 30.0 pg 26.0 - 34.[address] [facility] MCHC (RBC) [Mass/Vol] 32.5 g/dL 32.0 - 36.0 g/dL [facility] MCV (RBC) [Entitic vol] 92 fL 80 - [address] [facility] Nucleated RBC/100 WBC (Bld) [Ratio] 0.0 % [facility] Platelets (Bld) [#/Vol] 266 10*3/uL [facility] RBC (Bld) [#/Vol] 4.03 10*6/uL [facility] WBC (Bld) [#/Vol] 4.0 10*3/uL Low [facility] Erythrocyte distribution width (RBC) [Ratio] 12.5 % Normal 11.5-14.5 [facility] Comment on above: Performed By: #### 5 8410-2 ####MELISA Galvan ([id number])[facility] ()[address] [place] [address] Hematocrit (Bld) [Volume fraction] 37.2 % Normal 36.0-46.0 [facility] Comment on above: Performed By: #### 5 8410-2 ####MELISA Galvan ([id number])[facility] ()[address] [place] [address] Hemoglobin (Bld) [Mass/Vol] 12.1 g/dL Normal 12.0-16.0 [facility] Comment on above: Performed By: #### 5 8410-2 ####MELISA Galvan ([id number])[facility] ()[address] [place] [address] MCH (RBC) [Entitic mass] 30.0 pg Normal 26.0-34.0 [facility] Comment on above: Performed By: #### 5 8410-2 ####MELISA Galvan ()[facility] ()[address] [place] [address] MCHC (RBC) [Mass/Vol] 32.5 g/dL Normal 32.0-36.0 [facility] Comment on above: Performed By: #### 5 8410-2 ####MELISA Galvan ()[facility] ()[address] [place] [address] MCV (RBC) [Entitic vol] 92 fL Normal 80-100 [facility] Comment on above: Performed By: #### 5 8410-2 ####MELISA Galvan ()[facility] ()[address] [place] [address] Nucleated RBC/100 WBC (Bld) [Ratio] 0.0 /100 WBCs Normal 0.0-0.0 [facility] Comment on above: Performed By: #### 5 8410-2 ####MELISA Galvan ([id number])[facility] ()[address] [place] [address] Platelets (Bld) [#/Vol] 266 x10*3/uL Normal 150-450 [facility] Comment on above: Performed By: #### 5 8410-2 ####MELISA Galvan (74066)[facility] ()[address] [place] [address] RBC (Bld) [#/Vol] 4.03 x10*6/uL Normal 4.00-5.20 [facility] Comment on above: Performed By: #### 5 8410-2 ####MELISA Galvan ([id number])[facility] ()[address] [place] [address] WBC (Bld) [#/Vol] 4.0 x10*3/uL Low 4.4-11.3 [facility] Comment on above: Performed By: #### 5 8410-2 ####MELISA Galvan ([id number])[facility] (MW)[address] [place] [address] Comprehensive metabolic 2000 panelon 03-18-2023 Albumin [Mass/Vol] 3.0 g/dL Low 3.5 - 5.0 g/dL [facility] ALP (Bld) [Catalytic activity/Vol] 66 U/L 35 - 125 U/L [facility] ALT [Catalytic activity/Vol] 17 U/L 5 - 40 U/L [facility] Anion gap [Moles/Vol] 10 mmol/L NINF - 19 mmol/L [facility] AST [Catalytic activity/Vol] 33 U/L 5 - 40 U/L [facility] Bilirubin [Mass/Vol] 0.3 mg/dL 0.1 - 1.2 mg/dL [facility] Calcium [Mass/Vol] 8.4 mg/dL Low 8.5 - 10.4 mg/dL [facility] Chloride [Moles/Vol] 108 mmol/L High 97 - 107 mmol/L [facility] CO2 [Moles/Vol] 19 mmol/L Low 24 - 31 mmol/L [facility] Creatinine [Mass/Vol] 0.80 mg/dL 0.40 - 1.60 mg/dL [facility] eGFR - PINF [facility] Comment on above: Calculations of jessica mated GFR are performed using the 2020 CKD-EPI Study Refit equation without the race variable for the IDMS-Traceable creatinine methods. https://jasn.asnjournals.org/content///ASN.52858140 88 Glucose [Mass/Vol] 79 mg/dL 65 - 99 mg/dL [facility] Interpretation and review of laboratory results Abnormal [facility] Potassium [Moles/Vol] 3.8 mmol/L 3.4 - 5.1 mmol/L [facility] Protein [Mass/Vol] 5.7 g/dL Low 5.9 - 7.9 g/dL [facility] Sodium [Moles/Vol] 137 mmol/L 133 - 145 mmol/L [facility] Urea nitrogen [Mass/Vol] 5 mg/dL Low 8 - 25 mg/dL [facility] Albumin [Mass/Vol] 3.0 g/dL Low 3.5-5.0 [facility] Comment on above: Performed By: #### 2 432-8 ####MELISA Galvan ([id number])[facility] ()[address] [place] [address] ALP (Bld) [Catalytic activity/Vol] 66 U/L Normal 35-125 [facility] Comment on above: Performed By: #### 2 432-8 ####MELISA Galvan ([id number])[facility] ()[address] [place] [address] ALT [Catalytic activity/Vol] 17 U/L Normal 5-40 [facility] Comment on above: Performed By: #### 2 432-8 ####MELISA Galvan ([id number])[facility] ()[address] [place] [address] Anion gap [Moles/Vol] 10 mmol/L Normal <=19 [facility] Comment on above: Performed By: #### 2 4323-8 ####MELISA Galvan ([id number])[facility] ()[address] [place] [address] AST [Catalytic activity/Vol] 33 U/L Normal 5-40 [facility] Comment on above: Performed By: #### 2 432-8 ####MELISA Galvan ([id number])[facility] ()[address] [place] [address] Bilirubin [Mass/Vol] 0.3 mg/dL Normal 0.1-1.2 [facility] Comment on above: Performed By: #### 2 432-8 ####MELISA Galvan ([id number])[facility] ()[address] [place] [address] Calcium [Mass/Vol] 8.4 mg/dL Low 8.5-10.4 [facility] Comment on above: Performed By: #### 2 4323-8 ####MELISA Galvan ([id number])[facility] ()[address] [place] [address] Chloride [Moles/Vol] 108 mmol/L High 97-107 [facility] Comment on above: Performed By: #### 2 4323-8 ####MELISA Galvan (90602)[facility] ()[address] [place] [address] CO2 [Moles/Vol] 19 mmol/L Low 24-31 [facility] Comment on above: Performed By: #### 2 4323-8 ####MELISA Galvan ([id number])[facility] ()[address] [place] [address] Creatinine [Mass/Vol] 0.80 mg/dL Normal 0.40-1.60 [facility] Comment on above: Performed By: #### 2 4323-8 ####MELISA Galvan (04241)[facility] ()[address] [place] [address] GFR/1.73 sq M.predicted MDRD (S/P/Bld) [Vol rate/Area] mL/min/{1.73_m2} Normal >60 [facility] Comment on above: Result Comment: Calc ulations of estimated GFR are performed using the 2020 CKD-EPI Study Refit equation without the race variable for the IDMS-Traceable creatinine methods. https://jasn.asnjournals.org/content//ASN.10463338 88 Performed By: #### 2 4323-8 ####MELISA Galvan (51562)[facility] ()[address] [place] [address] Glucose [Mass/Vol] 79 mg/dL Normal 65-99 [facility] Comment on above: Performed By: #### 2 4323-8 ####MELISA Galvan (03503)[facility] ()[address] [place] [address] Potassium [Moles/Vol] 3.8 mmol/L Normal 3.4-5.1 [facility] Comment on above: Performed By: #### 2 4323-8 ####MELISA Galvan ([id number])[facility] ()[address] [place] [address] Protein [Mass/Vol] 5.7 g/dL Low 5.9-7.9 [facility] Comment on above: Performed By: #### 2 4323-8 ####MELISA Galvan ([id number])[facility] ()[address] [place] [address] Sodium [Moles/Vol] 137 mmol/L Normal 133-145 [facility] Comment on above: Performed By: #### 2 4323-8 ####MELISA Galvan ([id number])[facility] ()[address] [place] [address] Urea nitrogen [Mass/Vol] 5 mg/dL Low 8-25 [facility] Comment on above: Performed By: #### 2 4323-8 ####MELISA Galvan ([id number])[facility] ()[address] [place] [address] CBC panel Auto (Bld)on 03-17 Erythrocyte distribution width (RBC) [Ratio] 12.5 % 11.5 - 14.5 % [facility] Hematocrit (Bld) [Volume fraction] 34.9 % Low 36.0 - 46.0 % [facility] Hemoglobin (Bld) [Mass/Vol] 11.5 g/dL Low 12.0 - 16.0 g/dL [facility] Interpretation and review of laboratory results Abnormal [facility] MCH (RBC) [Entitic mass] 30.2 pg 26.0 - 34.[address] [facility] MCHC (RBC) [Mass/Vol] 33.0 g/dL 32.0 - 36.0 g/dL [facility] MCV (RBC) [Entitic vol] 92 fL 80 - [address] [facility] Nucleated RBC/100 WBC (Bld) [Ratio] 0.0 % [facility] Platelets (Bld) [#/Vol] 268 10*3/uL [facility] RBC (Bld) [#/Vol] 3.81 10*6/uL Low [facility] WBC (Bld) [#/Vol] 5.0 10*3/uL [facility] Erythrocyte distribution width (RBC) [Ratio] 12.5 % Normal 11.5-14.5 [facility] Comment on above: Performed By: #### 5 8410-2 ####MELISA Galvan ([id number])[facility] ()[address] [place] [address] Hematocrit (Bld) [Volume fraction] 34.9 % Low 36.0-46.0 [facility] Comment on above: Performed By: #### 5 8410-2 ####MELISA Galvan ([id number])[facility] ()[address] [place] [address] Hemoglobin (Bld) [Mass/Vol] 11.5 g/dL Low 12.0-16.0 [facility] Comment on above: Performed By: #### 5 8410-2 ####MELISA Galvan ([id number])[facility] ()[address] [place] [address] MCH (RBC) [Entitic mass] 30.2 pg Normal 26.0-34.0 [facility] Comment on above: Performed By: #### 5 8410-2 ####MELISA Galvan ([id number])[facility] ()[address] [place] [address] MCHC (RBC) [Mass/Vol] 33.0 g/dL Normal 32.0-36.0 [facility] Comment on above: Performed By: #### 5 8410-2 ####MELISA Galvan ([id number])[facility] ()[address] [place] [address] MCV (RBC) [Entitic vol] 92 fL Normal 80-100 [facility] Comment on above: Performed By: #### 5 8410-2 ####MELISA Galvan ([id number])[facility] ()[address] [place] [address] Nucleated RBC/100 WBC (Bld) [Ratio] 0.0 /100 WBCs Normal 0.0-0.0 [facility] Comment on above: Performed By: #### 5 8410-2 ####MELISA Galvan ([id number])[facility] ()[address] [place] [address] Platelets (Bld) [#/Vol] 268 x10*3/uL Normal 150-450 [facility] Comment on above: Performed By: #### 5 8410-2 ####MELISA Galvan ([id number])[facility] ()[address] [place] [address] RBC (Bld) [#/Vol] 3.81 x10*6/uL Low 4.00-5.20 [facility] Comment on above: Performed By: #### 5 8410-2 ####MELISA Galvan ([id number])[facility] ()[address] [place] [address] WBC (Bld) [#/Vol] 5.0 x10*3/uL Normal 4.4-11.3 [facility] Comment on above: Performed By: #### 5 8410-2 ####MELISA Galvan ([id number])[facility] ()[address] [place] [address] Comprehensive metabolic 2000 panelon 03-17-2023 Albumin [Mass/Vol] 3.3 g/dL Low 3.5 - 5.0 g/dL [facility] ALP (Bld) [Catalytic activity/Vol] 61 U/L 35 - 125 U/L [facility] ALT [Catalytic activity/Vol] 17 U/L 5 - 40 U/L [facility] Anion gap [Moles/Vol] 10 mmol/L NINF - 19 mmol/L [facility] AST [Catalytic activity/Vol] 31 U/L 5 - 40 U/L [facility] Bilirubin [Mass/Vol] 0.2 mg/dL 0.1 - 1.2 mg/dL [facility] Calcium [Mass/Vol] 8.1 mg/dL Low 8.5 - 10.4 mg/dL [facility] Chloride [Moles/Vol] 112 mmol/L High 97 - 107 mmol/L [facility] CO2 [Moles/Vol] 21 mmol/L Low 24 - 31 mmol/L [facility] Creatinine [Mass/Vol] 0.80 mg/dL 0.40 - 1.60 mg/dL [facility] eGFR - PINF [facility] Comment on above: Calculations of jessica mated GFR are performed using the 2020 CKD-EPI Study Refit equation without the race variable for the IDMS-Traceable creatinine methods. https://jasn.asnjournals.org/content/early/ASN.22886136 88 Glucose [Mass/Vol] 122 mg/dL High 65 - 99 mg/dL Uni [facility] Interpretation and review of laboratory results Abnormal [facility] Potassium [Moles/Vol] 4.3 mmol/L 3.4 - 5.1 mmol/L [facility] Protein [Mass/Vol] 5.7 g/dL Low 5.9 - 7.9 g/dL Un [facility] Sodium [Moles/Vol] 143 mmol/L 133 - 145 mmol/L [facility] Urea nitrogen [Mass/Vol] 5 mg/dL Low 8 - 25 mg/dL [facility] Albumin [Mass/Vol] 3.3 g/dL Low 3.5-5.0 [facility] Comment on above: Performed By: #### 2 4323-8 ####MELISA Galvan ([id number])[facility] ()[address] [place] [address] ALP (Bld) [Catalytic activity/Vol] 61 U/L Normal 35-125 [facility] Comment on above: Performed By: #### 2 432-8 ####MELISA Galvan ([id number])[facility] ()[address] [place] [address] ALT [Catalytic activity/Vol] 17 U/L Normal 5-40 [facility] Comment on above: Performed By: #### 2 432-8 ####MELISA Galvan ([id number])[facility] ()[address] [place] [address] Anion gap [Moles/Vol] 10 mmol/L Normal <=19 [facility] Comment on above: Performed By: #### 2 432-8 ####MELISA Galvan ([id number])[facility] ()[address] [place] [address] AST [Catalytic activity/Vol] 31 U/L Normal 5-40 [facility] Comment on above: Performed By: #### 2 4323-8 ####MELISA Galvan ([id number])[facility] ()[address] [place] [address] Bilirubin [Mass/Vol] 0.2 mg/dL Normal 0.1-1.2 [facility] Comment on above: Performed By: #### 2 4323-8 ####MELISA Galvan ([id number])[facility] ()[address] [place] [address] Calcium [Mass/Vol] 8.1 mg/dL Low 8.5-10.4 [facility] Comment on above: Performed By: #### 2 4323-8 ####MELISA Galvan ([id number])[facility] ()[address] [place] [address] Chloride [Moles/Vol] 112 mmol/L High 97-107 [facility] Comment on above: Performed By: #### 2 4323-8 ####MELISA Galvan ([id number])[facility] ()[address] [place] [address] CO2 [Moles/Vol] 21 mmol/L Low 24-31 [facility] Comment on above: Performed By: #### 2 4323-8 ####MELISA Galvan ([id number])[facility] ()[address] [place] [address] Creatinine [Mass/Vol] 0.80 mg/dL Normal 0.40-1.60 [facility] Comment on above: Performed By: #### 2 4323-8 ####MELISA Galvan ([id number])[facility] ()[address] [place] [address] GFR/1.73 sq M.predicted MDRD (S/P/Bld) [Vol rate/Area] mL/min/{1.73_m2} Normal >60 [facility] Comment on above: Result Comment: Calc ulations of estimated GFR are performed using the 2020 CKD-EPI Study Refit equation without the race variable for the IDMS-Traceable creatinine methods. https://jasn.asnjournals.org/content//ASN.48197938 88 Performed By: #### 2 4323-8 ####MELISA Galvan ([id number])[facility] ()[address] [place] [address] Glucose [Mass/Vol] 122 mg/dL High 65-99 [facility] Comment on above: Performed By: #### 2 4323-8 ####MELISA Galvan ([id number])[facility] ()[address] [place] [address] Potassium [Moles/Vol] 4.3 mmol/L Normal 3.4-5.1 [facility] Comment on above: Performed By: #### 2 4323-8 ####MELISA Galvan ([id number])[facility] ()[address] [place] [address] Protein [Mass/Vol] 5.7 g/dL Low 5.9-7.9 [facility] Comment on above: Performed By: #### 2 4323-8 ####MELISA Galvan ([id number])[facility] ()[address] [place] [address] Sodium [Moles/Vol] 143 mmol/L Normal 133-145 [facility] Comment on above: Performed By: #### 2 4323-8 ####MELISA Galvan ([id number])[facility] ()[address] [place] [address] Urea nitrogen [Mass/Vol] 5 mg/dL Low 8-25 [facility] Comment on above: Performed By: #### 2 4323-8 ####MELISA Galvan ([id number])[facility] ()[address] [place] [address] FL UPPER GI W DOUBLE CONTRAS T W SMALL BOWEL FOLLOW THROUGHon 03-17-2023 FL UPPER GI W DOUBLE CONTRAST W SMALL BOWEL FOLLOW THROUGH Interpreted By: Corie Garza, ADDENDUM: The exam was a single contrast upper GI with small-bowel follow-through Signed by: Corie Garza 04/01/2023 12:58 PM -------- ORIGINAL REPORT -------- Dictation workstation: [id number] Interpreted By: Corie Garza, STUDY: FL UPPER GI W DOUBLE CONTRAST W SMALL BOWEL FOLLOW THROUGH; 03/17/2023 4:40 pm INDICATION: Signs/Symptoms:abdo kerry pain. COMPARISON: None. ACCESSION NUMBER(S): [id number] ORDERING CLINICIAN: TIFFANIE MENDEZ TECHNIQUE: Multiple fluoroscopic spot images were obtained during a single contrast upper GI with KUB. Total fluoroscopy time: 1 minute 32 seconds Radiation exposure (Reference Air Kerma): 99.36 mGy Images: 2 spot images 7 series and 2 delayed AP views of the abdomen FINDINGS: Kettle Firer images demonstrate postsurgical changes from previous Tan-en-Y [...] Corie Garza 03/17/2023 5:00 PM Dictation workstation: [id number] [facility] RF Upper gastrointestinal tr act and Small bowel Views W air contrast PO and W barium contrast Mary 03-17-2023 Postsurgical changes from gastric bypass. No evidence for obstruction.. MACRO: none Signed by: Corie Garza 03/17/2023 5:00 PM Dictation workstation: [id number] MMODAL Interpreted By: Corie Garza, STUDY: FL UPPER GI W DOUBLE CONTRAST W SMALL BOWEL FOLLOW THROUGH; 03/17/2023 4:40 pm INDICATION: Signs/Symptoms:abdo kerry pain. COMPARISON: None. ACCESSION NUMBER(S): [id number] ORDERING CLINICIAN: TIFFANIE MENDEZ TECHNIQUE: Multiple fluoroscopic spot images were obtained during a single contrast upper GI with KUB. Total fluoroscopy time: 1 minute 32 seconds Radiation exposure (Reference Air Kerma): 99.36 mGy Images: 2 spot images 7 series and 2 delayed AP views of the abdomen FINDINGS: Kettle Firer images demonstrate postsurgical changes from previous Tan-en-Y [...] Signs/Symptoms:abdo kerry pain. COMPARISON: None. ACCESSION NUMBER(S): [id number] ORDERING CLINICIAN: TIFFANIE MENDEZ TECHNIQUE: Multiple fluoroscopic spot images were obtained during a single contrast upper GI with KUB. Total fluoroscopy time: 1 minute 32 seconds Radiation exposure (Reference Air Kerma): 99.36 mGy Images: 2 spot images 7 series and 2 delayed AP views of the abdomen FINDINGS: Kettle Firer images demonstrate postsurgical changes from previous Tan-en-Y [...] Corie Garza 03/17/2023 5:00 PM Dictation workstation: [id number] [facility] Work Phone: [facility] Work Phone: Radiology Study observation (narrative) [facility] Work Phone: XR CHEST 1 VIEWon 03-17-2023 XR CHEST 1 VIEW Interpreted By: Nya Ahmadi, STUDY: XR CHEST 1 VIEW 03/17/2023 7:09 pm INDICATION: Signs/Symptoms:S/p NG placement COMPARISON: 03/17/2023 done at 2:05 p.m. ACCESSION NUMBER(S): [id number] ORDERING CLINICIAN: TIFFANIE MENDEZ TECHNIQUE: AP erect view of the chest FINDINGS: The nasogastric tube has not changed in placement with the tip seen within the proximal thoracic esophagus. Heart and mediastinum are normally visualized. Lungs are clear. IMPRESSION: Distal tip of nasogastric tube in proximal thoracic esophagus just above the aortic arch. Signed by: Nya Ahmadi 03/17/2023 8:19 PM Dictation workstation: [id number] [facility] XR CHEST 1 VIEW Interpreted By: Corie Garza, STUDY: XR CHEST 1 VIEW; 03/17/2023 12:41 pm INDICATION: Signs/Symptoms:Stat us post NG tube placement. COMPARISON: None available ACCESSION NUMBER(S): [id number] ORDERING CLINICIAN: TIFFANIE MENDEZ FINDINGS: RESULT: Nasogastric [...] Corie Garza 03/17/2023 4:19 PM Dictation workstation: [id number] [facility] XR Chest Single viewon 03-17 Distal tip of nasogastric tube in proximal thoracic esophagus just above the aortic arch. Signed by: Nya Ahmadi 03/17/2023 8:19 PM Dictation workstation: [id number] MMODAL Interpreted By: Nya Ahmadi, STUDY: XR CHEST 1 VIEW 03/17/2023 7:09 pm INDICATION: Signs/Symptoms:S/p NG placement COMPARISON: 03/17/2023 done at 2:05 p.m. ACCESSION NUMBER(S): [id number] ORDERING CLINICIAN: TIFFANIE MENDEZ TECHNIQUE: AP erect [...] 03/17/2023 done at 2:05 p.m. ACCESSION NUMBER(S): [id number] ORDERING CLINICIAN: TIFFANIE MENDEZ TECHNIQUE: AP erect view of the chest FINDINGS: The nasogastric tube has not changed in placement with the tip seen within the proximal thoracic esophagus. Heart and mediastinum are normally visualized. Lungs are clear. IMPRESSION: Distal tip of nasogastric tube in proximal thoracic esophagus just above the aortic arch. Signed by: Nya Ahmadi 03/17/2023 8:19 PM Dictation workstation: [id number] [facility] Work Phone: Radiology Study observation (narrative) [facility] Work Phone: Nasogastric tube tip is noted at the level of the upper esophagus at the level of the clavicular heads. The nasogastric tube removed itself from the patient soon after this exam. Signed by: Corie Garza 03/17/2023 4:19 PM Dictation workstation: [id number] MMODAL Interpreted By: Corie Garza, STUDY: XR CHEST 1 VIEW; 03/17/2023 12:41 pm INDICATION: Signs/Symptoms:Stat us post NG tube placement. COMPARISON: None available ACCESSION NUMBER(S): [id number] ORDERING CLINICIAN: TIFFANIE MENDEZ FINDINGS: RESULT: Nasogastric [...] tube placement. COMPARISON: None available ACCESSION NUMBER(S): [id number] ORDERING CLINICIAN: TIFFANIE MENDEZ FINDINGS: RESULT: Nasogastric [...] Corie Garza 03/17/2023 4:19 PM Dictation workstation: [id number] [facility] Work Phone: [facility] Work Phone: Radiology Study observation (narrative) [facility] Work Phone: XR Chest Single viewOrdered By: Nya Ahmadi on 03-17-[address] [facility] Work Phone: BMPon 03-16-2023 Anion gap [Moles/Vol] 11 mmol/L Normal 6-16 [facility] Comment on above: Performed By: #### 2 082041, [id number], 2576888, 9090804, 3024780, 2578153 ####[facility] [address] [place] [address] BUN/Creat Ratio 10 No Units Normal 10-20 [facility] Comment on above: Performed By: #### 2 615274, 76199547, 8231602, 9181338, 4496465, 3549064 ####[facility] [address] [place] [address] Calcium [Mass/Vol] 8.5 mg/dL Low 8.9-11.1 [facility] Comment on above: Performed By: #### 2 433732, 30009820, 4291260, 7793112, 4169160, 3373493 ####[facility] [address] [place] [address] Chloride [Moles/Vol] 109 mmol/L Normal 101-111 [facility] Comment on above: Performed By: #### 2 245457, 65134636, 1816400, 6254606, 5831795, 6213832 ####[facility] [address] [place] [address] CO2 [Moles/Vol] 24 mmol/L Normal 21-31 [facility] Comment on above: Performed By: #### 2 170240, 24507078, 7895483, 3092526, 6140184, 2679766 ####[facility] [address] [place] [address] Creatinine [Mass/Vol] 0.8 mg/dL Normal 0.5-1.3 [facility] Comment on above: Performed By: #### 2 652854, 44554236, 2751630, 2310370, 7164310, 9202466 ####[facility] [address] [place] [address] Glucose [Mass/Vol] 77 mg/dL Normal 55-199 [facility] Comment on above: Performed By: #### 2 909371, 62389931, 7038597, 6303360, 5850795, 5319126 ####[facility] [address] [place] [address] Potassium [Moles/Vol] 3.7 mmol/L Normal 3.5-5.3 [facility] Comment on above: Performed By: #### 2 999762, 27267230, 1734951, 6034717, 8933687, 4679889 ####[facility] [address] [place] [address] Sodium [Moles/Vol] 140 mmol/L Normal 135-145 [facility] Comment on above: Performed By: #### 2 428288, 58742187, 4640145, 3582040, 5385282, 3662616 ####[facility] [address] [place] [address] Urea nitrogen [Mass/Vol] 8 mg/dL Normal 5-21 [facility] Comment on above: Performed By: #### 2 270406, 09264165, 0323288, 8439810, 4158753, 4656355 ####[facility] [address] [place] [address] CBC W Auto Differential pane l (Bld)on 03-16-2023 Basophils (Bld) [#/Vol] 0.07 10*3/uL [facility] Basophils/100 WBC (Bld) 1.4 % 0.0 - 2.0 % [facility] Eosinophils (Bld) [#/Vol] 0.50 10*3/uL [facility] Eosinophils/100 WBC (Bld) 9.9 % 0.0 - 6.0 % [facility] Erythrocyte distribution width (RBC) [Ratio] 12.3 % 11.5 - 14.5 % [facility] Hematocrit (Bld) [Volume fraction] 33.4 % Low 36.0 - 46.0 % [facility] Hemoglobin (Bld) [Mass/Vol] 10.8 g/dL Low 12.0 - 16.0 g/dL [facility] Immature granulocytes (Bld) [#/Vol] 0.01 10*3/uL [facility] Immature granulocytes/100 WBC (Bld) 0.2 % 0.0 - 0.9 % [facility] Comment on above: Immature Granulocyte Count (IG) includes promyelocytes, myelocytes and metamyelocytes but does not include bands. Percent differential counts (%) should be interpreted in the context of the absolute cell counts (cells/UL). Interpretation and review of laboratory results Abnormal [facility] Lymphocytes (Bld) [#/Vol] 1.70 10*3/uL [facility] Lymphocytes/100 WBC (Bld) 33.7 % 13.0 - 44.0 % [facility] MCH (RBC) [Entitic mass] 30.5 pg 26.0 - 34.[address] [facility] MCHC (RBC) [Mass/Vol] 32.3 g/dL 32.0 - 36.0 g/dL [facility] MCV (RBC) [Entitic vol] 94 fL 80 - [address] [facility] Monocytes (Bld) [#/Vol] 0.31 10*3/uL [facility] Monocytes/100 WBC (Bld) 6.2 % 2.0 - 10.0 % [facility] Neutrophils (Bld) [#/Vol] 2.45 10*3/uL [facility] Comment on above: Percent differential counts (%) should be interpreted in the context of the absolute cell counts (cells/uL). Neutrophils/100 WBC (Bld) 48.6 % 40.0 - 80.0 % [facility] Nucleated RBC/100 WBC (Bld) [Ratio] 0.0 % [facility] Platelets (Bld) [#/Vol] 273 10*3/uL [facility] RBC (Bld) [#/Vol] 3.54 10*6/uL Low [facility] WBC (Bld) [#/Vol] 5.0 10*3/uL [facility] Basophils (Bld) [#/Vol] 0.07 x10*3/uL Normal 0.00-0.10 [facility] Comment on above: Performed By: #### 5 7021-8 ####MELISA Galvan ([id number])[facility] ()[address] [place] [address] Basophils/100 WBC (Bld) 1.4 % Normal 0.0-2.0 [facility] Comment on above: Performed By: #### 5 7021-8 ####MELISA Galvan ([id number])[facility] ()[address] [place] [address] Eosinophils (Bld) [#/Vol] 0.50 x10*3/uL Normal 0.00-0.70 [facility] Comment on above: Performed By: #### 5 7021-8 ####MELISA Galvan ([id number])[facility] ()[address] [place] [address] Eosinophils/100 WBC (Bld) 9.9 % Normal 0.0-6.0 [facility] Comment on above: Performed By: #### 5 7021-8 ####MELISA Galvan (85531)[facility] INCLUDES THE [facility] ()[address] [place] [address] Erythrocyte distribution width (RBC) [Ratio] 12.3 % Normal 11.5-14.5 [facility] Comment on above: Performed By: #### 5 7021-8 ####MELISA Galvan ([id number])[facility] ()[address] [place] [address] Hematocrit (Bld) [Volume fraction] 33.4 % Low 36.0-46.0 [facility] Comment on above: Performed By: #### 5 7021-8 ####MELISA Galvan ([id number])[facility] ()[address] [place] [address] Hemoglobin (Bld) [Mass/Vol] 10.8 g/dL Low 12.0-16.0 [facility] Comment on above: Performed By: #### 5 7021-8 ####MELISA Galvan ([id number])[facility] ()[address] [place] [address] Immature granulocytes (Bld) [#/Vol] 0.01 x10*3/uL Normal 0.00-0.70 [facility] Comment on above: Performed By: #### 5 7021-8 ####MELISA Galvan ([id number])[facility] ()[address] [place] [address] Immature granulocytes/100 WBC (Bld) 0.2 % Normal 0.0-0.9 [facility] Comment on above: Result Comment: Janny ture Granulocyte Count (IG) includes promyelocytes, myelocytes and metamyelocytes but does not include bands. Percent differential counts (%) should be interpreted in the context of the absolute cell counts (cells/UL). Performed By: #### 5 7021-8 ####MELISA Glavan ([id number])[facility] ()[address] [place] [address] Lymphocytes (Bld) [#/Vol] 1.70 x10*3/uL Normal 1.20-4.80 [facility] Comment on above: Performed By: #### 5 7021-8 ####MELISA Galvan ([id number])[facility] ()[address] [place] [address] Lymphocytes/100 WBC (Bld) 33.7 % Normal 13.0-44.0 [facility] Comment on above: Performed By: #### 5 7021-8 ####MELISA Galvan ([id number])[facility] ()[address] [place] [address] MCH (RBC) [Entitic mass] 30.5 pg Normal 26.0-34.0 [facility] Comment on above: Performed By: #### 5 7021-8 ####MELISA Galvan (69151)[facility] ()[address] [place] [address] MCHC (RBC) [Mass/Vol] 32.3 g/dL Normal 32.0-36.0 [facility] Comment on above: Performed By: #### 5 7021-8 ####MELISA Galvan ([id number])[facility] ()[address] [place] [address] MCV (RBC) [Entitic vol] 94 fL Normal 80-100 [facility] Comment on above: Performed By: #### 5 7021-8 ####MELISA Galvan ([id number])[facility] ()[address] [place] [address] Monocytes (Bld) [#/Vol] 0.31 x10*3/uL Normal 0.10-1.00 [facility] Comment on above: Performed By: #### 5 7021-8 ####MELISA Galvan ([id number])[facility] ()[address] [place] [address] Monocytes/100 WBC (Bld) 6.2 % Normal 2.0-10.0 [facility] Comment on above: Performed By: #### 5 7021-8 ####MELISA Galvan ([id number])[facility] ()[address] [place] [address] Neutrophils (Bld) [#/Vol] 2.45 x10*3/uL Normal 1.20-7.70 [facility] Comment on above: Result Comment: Perc ent differential counts (%) should be interpreted in the context of the absolute cell counts (cells/uL). Performed By: #### 5 7021-8 ####MELISA Galvan ([id number])COUNT INCLUDES THE [facility] ()[address] [place] [address] Neutrophils/100 WBC (Bld) 48.6 % Normal 40.0-80.0 [facility] Comment on above: Performed By: #### 5 7021-8 ####MELISA Galvan ([id number])[facility] ()[address] [place] [address] Nucleated RBC/100 WBC (Bld) [Ratio] 0.0 /100 WBCs Normal 0.0-0.0 [facility] Comment on above: Performed By: #### 5 7021-8 ####MELISA Galvan (93953)[facility] ()[address] [place] [address] Platelets (Bld) [#/Vol] 273 x10*3/uL Normal 150-450 [facility] Comment on above: Performed By: #### 5 7021-8 ####MELISA Galvan ([id number])[facility] ()[address] [place] [address] RBC (Bld) [#/Vol] 3.54 x10*6/uL Low 4.00-5.20 [facility] Comment on above: Performed By: #### 5 7021-8 ####MELISA Galvan ([id number])[facility] ()[address] [place] [address] WBC (Bld) [#/Vol] 5.0 x10*3/uL Normal 4.4-11.3 [facility] Comment on above: Performed By: #### 5 7021-8 ####MELISA Galvan ([id number])[facility] ()[address] [place] [address] CBC w/ Auto Diffon 4 Basophil Absolute 0.1 E9/L Normal 0.0-0.2 [facility] Comment on above: Performed By: #### 2 254045, 91522755, 9721717, 3748746, 3155028, 0749030 ####[facility] [address] [place] [address] Basophils/100 WBC (Bld) 2.3 % High 0.0-2.0 [facility] Comment on above: Performed By: #### 2 091153, 20001381, 1462463, 8918454, 9793359, 9615129 ####[facility] [address] [place] [address] Eos Absolute 0.5 E9/L Normal 0.0-0.5 [facility] Comment on above: Performed By: #### 2 620062, 79479524, 9348949, 5052668, 6810126, 2500297 ####[address] [place] [address] Eosinophils/100 WBC (Bld) 10.3 % High 0.0-8.0 [facility] Comment on above: Performed By: #### 2 352628, 52238987, 5287430, 1301881, 7300335, 9236164 ####[address] [address] Erythrocyte distribution width (RBC) [Ratio] 13.2 % Normal 10.9-14.2 [facility] Comment on above: Performed By: #### 2 511935, 74264015, 7579878, 5381515, 3903066, 8402909 ####[address] [address] Hematocrit (Bld) [Volume fraction] 38.0 % Normal 34.0-46.0 [facility] Comment on above: Performed By: #### 2 796217, 43772793, 4593597, 8965218, 3998032, 9089350 ####[address] [address] Hemoglobin (Bld) [Mass/Vol] 12.5 g/dL Normal 12.0-16.0 [facility] Comment on above: Performed By: #### 2 416647, 33298261, 9672201, 2945176, 5424851, 4588455 ####[address] [address] Lymph Absolute 1.5 E9/L Normal 1.0-4.0 [facility] Comment on above: Performed By: #### 2 361011, 34135145, 9131171, 5949486, 4153485, 9434186 ####[address] [address] Lymphocytes/100 WBC (Bld) 32.0 % Normal 14.0-50.0 [facility] Comment on above: Performed By: #### 2 241172, 73817288, 7733880, 1219935, 5346708, 7561963 ####[address] [address] MCH (RBC) [Entitic mass] 29.7 pg Normal 27.0-34.0 [facility] Comment on above: Performed By: #### 2 360787, 96328366, 2446937, 5204692, 7146575, 1242300 ####[address] MCHC (RBC) [Mass/Vol] 33.0 g/dL Normal 31.4-36.0 [facility] Comment on above: Performed By: #### 2 249781, 53517904, 5267436, 8327260, 6245305, 0716672 ####[address] [address] MCV (RBC) [Entitic vol] 89.8 fL Normal 80.0-100.0 [facility] Comment on above: Performed By: #### 2 420094, 63811904, 8267673, 4935379, 8340403, 9145648 ####[address] [place] Absolute 0.3 E9/L Normal 0.2-1.0 [facility] Comment on above: Performed By: #### 2 185917, 52633233, 2882582, 8933987, 9774536, 6264999 ####[address] Monocytes/100 WBC (Bld) 6.4 % Normal 4.0-14.0 [facility] Comment on above: Performed By: #### 2 083338, 89491776, 7486690, 8754347, 2920847, 1567094 ####[address] [address] Neutro Absolute 2.3 E9/L Normal 2.0-7.5 [facility] Comment on above: Performed By: #### 2 280469, 85346835, 1653792, 0554932, 7694821, 5353118 ####[facility] [address] [place] [address] Neutro Auto 49.0 % Normal 36.0-75.0 [facility] Comment on above: Performed By: #### 2 851699, 11097980, 6291833, 0660287, 5533608, 3921477 ####[facility] [address] [place] [address] Platelet 313.0 E9/L Normal 150.0-500.0 [facility] Comment on above: Performed By: #### 2 582955, 36198788, 2378969, 2391735, 3391096, 3917086 ####[address] [place] [address] Platelet mean volume (Bld) [Entitic vol] 8.7 fL Normal 6.4-10.8 [facility] Comment on above: Performed By: #### 2 997273, 97761460, 5488082, 3406392, 0550200, 0478853 ####[facility] [address] [place] [address] RBC 4.2 E12/L Low 4.3-5.9 [facility] Comment on above: Performed By: #### 2 702383, 78379506, 2769705, 9530011, 0099735, 6328388 ####[facility] [address] [place] [address] WBC 4.8 E9/L Normal 4.0-11.0 [facility] Comment on above: Performed By: #### 2 004262, 67062345, 4499358, 9802316, 5892369, 4819463 ####[address] [place] [address] CHEMISTRYOrdered By: SYSTEM SYSTEM on 03-16-2023 Albumin [...] and IV contrast. COMPARISON: None.. ACCESSION NUMBER(S): [id number] ORDERING CLINICIAN: TIFFANIE MENDEZ TECHNIQUE: Oral contrast [...] Corie Garza 03/16/2023 5:46 PM Dictation workstation: [id number] [facility] CT Abdomen and Pelvis W cont rast Brenden 03-16-2023 Patchy ground-glass densities in the bilateral lung bases may represent atelectasis. Multiple cystic lesions scattered throughout both lobes of the liver. Postsurgical changes of Tan-en-Y gastric bypass. MACRO: none Signed by: Corie Garza 03/16/2023 5:46 PM Dictation workstation: [id number] MMODAL Interpreted By: Corie Garza, STUDY: CT ABDOMEN PELVIS W IV CONTRAST; 03/16/2023 5:27 pm INDICATION: Signs/Symptoms:abdo kerry pain - with oral and IV contrast. COMPARISON: None.. ACCESSION NUMBER(S): [id number] ORDERING CLINICIAN: TIFFANIE MENDEZ TECHNIQUE: Oral contrast [...] Wall: Unremarkable. Bones: No acute bony abnormalities. [facility] Corie Garza MD - 03/16/2023 Interpreted By: Corie Garza, STUDY: CT ABDOMEN PELVIS W IV CONTRAST; 03/16/2023 5:27 pm INDICATION: Signs/Symptoms:abdo kerry pain - with oral and IV contrast. COMPARISON: None.. ACCESSION NUMBER(S): [id number] ORDERING CLINICIAN: TIFFANIE MENDEZ TECHNIQUE: Oral contrast [...] Corie Garza 03/16/2023 5:46 PM Dictation workstation: [id number] [facility] Work Phone: Radiology Study observation (narrative) [facility] Work Phone: CT Abdomen and Pelvis W cont rast IVOrdered By: Corie Garza on 03-16-[address] [facility] Work Phone: Comprehensive metabolic 2000 panelon 03-16-2023 Albumin [Mass/Vol] 3.0 g/dL Low 3.5 - 5.0 g/dL [facility] ALP (Bld) [Catalytic activity/Vol] 58 U/L 35 - 125 U/L [facility] ALT [Catalytic activity/Vol] 13 U/L 5 - 40 U/L [facility] Anion gap [Moles/Vol] 10 mmol/L NINF - 19 mmol/L [facility] AST [Catalytic activity/Vol] 32 U/L 5 - 40 U/L [facility] Bilirubin [Mass/Vol] mg/dL 0.1 - 1.2 mg/dL [facility] Calcium [Mass/Vol] 7.9 mg/dL Low 8.5 - 10.4 mg/dL [facility] Chloride [Moles/Vol] 110 mmol/L High 97 - 107 mmol/L [facility] CO2 [Moles/Vol] 21 mmol/L Low 24 - 31 mmol/L [facility] Creatinine [Mass/Vol] 0.80 mg/dL 0.40 - 1.60 mg/dL [facility] eGFR - PINF [facility] Comment on above: Calculations of jessica mated GFR are performed using the 2020 CKD-EPI Study Refit equation without the race variable for the IDMS-Traceable creatinine methods. https://jasn.asnjournals.org/content//ASN.46725163 88 Glucose [Mass/Vol] 82 mg/dL 65 - 99 mg/dL [facility] Interpretation and review of laboratory results Abnormal [facility] Potassium [Moles/Vol] 3.7 mmol/L 3.4 - 5.1 mmol/L [facility] Protein [Mass/Vol] 5.5 g/dL Low 5.9 - 7.9 g/dL [facility] Sodium [Moles/Vol] 141 mmol/L 133 - 145 mmol/L [facility] Urea nitrogen [Mass/Vol] 8 mg/dL 8 - 25 mg/dL [facility] Albumin [Mass/Vol] 3.0 g/dL Low 3.5-5.0 [facility] Comment on above: Performed By: #### 2 4323-8 ####MELISA Galvan ([id number])[facility] ()[address] [place] [address] ALP (Bld) [Catalytic activity/Vol] 58 U/L Normal 35-125 [facility] Comment on above: Performed By: #### 2 4323-8 ####MELISA Galvan ([id number])[facility] ()[address] [address] ALT [Catalytic activity/Vol] 13 U/L Normal 5-40 [facility] Comment on above: Performed By: #### 2 4323-8 ####MELISA Galvan (25897)[facility] ()[address] [place] [address] Anion gap [Moles/Vol] 10 mmol/L Normal <=19 [facility] Comment on above: Performed By: #### 2 432-8 ####MELISA Galvan (30930)[facility] ()[address] [place] [address] AST [Catalytic activity/Vol] 32 U/L Normal 5-40 [facility] Comment on above: Performed By: #### 2 432-8 ####MELISA Galvan (20762)[facility] ()[address] [place] [address] Bilirubin [Mass/Vol] mg/dL Normal 0.1-1.2 [facility] Comment on above: Performed By: #### 2 432-8 ####MELISA Galvan (19516)[facility] ()[address] [place] [address] Calcium [Mass/Vol] 7.9 mg/dL Low 8.5-10.4 [facility] Comment on above: Performed By: #### 2 4323-8 ####MELISA Galvan (82470)[facility] ()[address] [place] [address] Chloride [Moles/Vol] 110 mmol/L High 97-107 [facility] Comment on above: Performed By: #### 2 4323-8 ####MELISA Galvan (48342)[facility] ()[address] [place] [address] CO2 [Moles/Vol] 21 mmol/L Low 24-31 [facility] Comment on above: Performed By: #### 2 4323-8 ####MELISA Galvan (87248)[facility] ()[address] [place] [address] Creatinine [Mass/Vol] 0.80 mg/dL Normal 0.40-1.60 [facility] Comment on above: Performed By: #### 2 4323-8 ####MELISA Galvan (60973)[facility] ()[address] [place] [address] GFR/1.73 sq M.predicted MDRD (S/P/Bld) [Vol rate/Area] mL/min/{1.73_m2} Normal >60 [facility] Comment on above: Result Comment: Calc ulations of estimated GFR are performed using the 2020 CKD-EPI Study Refit equation without the race variable for the IDMS-Traceable creatinine methods. https://jasn.asnjournals.org/content/early//ASN.71628442 88 Performed By: #### 2 4323-8 ####MELISA Galvan (71363)[facility] ()[address] [place] [address] Glucose [Mass/Vol] 82 mg/dL Normal 65-99 [facility] Comment on above: Performed By: #### 2 4323-8 ####MELISA Galvan (07480)[facility] ()[address] [place] [address] Potassium [Moles/Vol] 3.7 mmol/L Normal 3.4-5.1 [facility] Comment on above: Performed By: #### 2 4323-8 ####MELISA Galvan (49179)[facility] ()[address] [place] [address] Protein [Mass/Vol] 5.5 g/dL Low 5.9-7.9 [facility] Comment on above: Performed By: #### 2 4323-8 ####MELISA Galvan (91677)[facility] ()[address] [place] [address] Sodium [Moles/Vol] 141 mmol/L Normal 133-145 [facility] Comment on above: Performed By: #### 2 4323-8 ####MELISA ALEXANDRO Galvan (96974)[facility] ()[address] [place] [address] Urea nitrogen [Mass/Vol] 8 mg/dL Normal 8-25 [facility] Comment on above: Performed By: #### 2 4323-8 ####MELISA POOLESarwat Galvan (17525)[facility] ()[address] [place] [address] Consent for Treatmenton 02-17 Consent for Treatment [id number] 972#1.00TIFF Normal [facility] Discharge Instructionson Discharge Instructions [id number] 21#1.00TIFF Normal [facility] Comment on above: Other Comment: wrong folder ED Clinical Summaryon 2023 ED Clinical Summary Normal [facility] ED Note-Nursingon 03-16-2023 ED Note-Nursing called report to Thu PRICE, . Normal [facility] ED Note-Physicianon 03-16-19 ED Note-Physician Normal [facility] Comment on above: Result Comment: Elec tronically Signed By: Earnest Jett DO\.br\Date and Time Signed: 03/16/23 11:17 EST ED Patient Education Noteon 03-16-2023 ED Patient Education Note Normal [facility] ED Patient Summaryon 024 ED Patient Summary Normal [facility] HEMATOLOGYOrdered By: SYSTEM SYSTEM on 03-16-2023 [...] Normal 80.0 - 100.0 fL Remisol Heme [place] Absolute 0.3 E9/L Normal 0.2 - 1.0 [...] 03-16-2023 Albumin [Mass/Vol] 3.8 g/dL Normal 3.3-5.0 [facility] Comment on above: Performed By: #### 2 276959, 13507490, 0199405, 2022922, 5794611, 5182676 ####[facility] [address] [place] [address] Albumin/Globulin [Mass ratio] 1.5 {ratio} Normal 1.1-2.2 [facility] Comment on above: Performed By: #### 2 332313, 46775570, 7097251, 9712435, 6635535, 0873793 ####[facility] [address] [place] [address] Alk Phos 62 Int._Unit/L Normal 21-98 [facility] Comment on above: Performed By: #### 2 475960, 60738786, 9024565, 3196103, 1089014, 2968368 ####[address] [address] ALT 21 Int._Unit/L Normal 6-46 [facility] Comment on above: Performed By: #### 2 042310, 80483711, 2367667, 0913034, 4708519, 3444802 ####[address] [address] AST 37 Int._Unit/L Normal 5-43 [facility] Comment on above: Performed By: #### 2 092533, 41417715, 9973779, 5617709, 4087050, 8578104 ####[facility] [address] [place] [address] Bili Direct 0.1 mg/dL Normal 0.0-0.4 [facility] Comment on above: Performed By: #### 2 531163, 42924875, 6165598, 6647855, 7134181, 1197285 ####[facility] [address] [place] [address] Bili Indirect 0.2 mg/dL Normal 0.1-0.9 [facility] Comment on above: Performed By: #### 2 768462, 66507358, 3761018, 7037598, 1510290, 5368181 ####[facility] [address] [place] [address] Bili Total 0.3 mg/dL Normal 0.0-1.1 [facility] Comment on above: Performed By: #### 2 576859, 80049563, 0135289, 1866448, 6974733, 5248182 ####[facility] [address] [place] [address] Globulin (S) [Mass/Vol] 2.6 g/dL Normal 1.4-4.0 [facility] Comment on above: Performed By: #### 2 438713, 09627046, 0709052, 4593075, 7698146, 5589494 ####[facility] [address] [place] [address] Protein [Mass/Vol] 6.4 g/dL Normal 6.0-7.8 [facility] Comment on above: Performed By: #### 2 770418, 83273582, 3536752, 6695237, 3291793, 6828242 ####[facility] [address] [place] [address] Influenza virus A and B and SARS-CoV-2 (COVID-19) identified HANK+probe Nom (Resp)on 03-16-2023 FLUAV RNA HANK+probe Ql (Resp) Not detected Not Detected [facility] FLUBV RNA HANK+probe Ql (Resp) Not detected Not Detected [facility] Interpretation and review of laboratory results Normal [facility] SARS-CoV-2 (COVID-19) RNA HANK+probe Ql (Resp) Not detected Not Detected [facility] This assay has received FDA Emergency Use [...] and has been validated for use at [facility]. Negative results do not preclude COVID-19 infections or Influenza A/B infections, and should not be used as the sole basis for diagnosis, treatment, or other management decisions. If Influenza A/B and RSV PCR results are negative, testing for Parainfluenza virus, Adenovirus and Metapneumovirus is routinely performed for [facility] pediatric oncology and intensive care inpatients, and is available on other patients by placing an add-on request. [facility] FLUAV RNA HANK+probe Ql (Resp) Not detected Normal Not Detected [facility] Comment on above: Order Comment: This assay [...] and has been validated for use at [facility]. Negative results do not preclude COVID-19 infections or Influenza A/B infections, and should not be used as the sole basis for diagnosis, treatment, or other management decisions. If Influenza A/B and RSV PCR results are negative, testing for Parainfluenza virus, Adenovirus and Metapneumovirus is routinely performed for [facility] pediatric oncology and intensive care inpatients, and is available on other patients by placing an add-on request. Performed By: #### 5 2969-3 #### ALON Johnson ([id number]) [facility] ([facility]) [address] [place] [address] FLUBV RNA HANK+probe Ql (Resp) Not detected Normal Not Detected [facility] Comment on above: Order Comment: This assay [...] and has been validated for use at [facility]. Negative results do not preclude COVID-19 infections or Influenza A/B infections, and should not be used as the sole basis for diagnosis, treatment, or other management decisions. If Influenza A/B and RSV PCR results are negative, testing for Parainfluenza virus, Adenovirus and Metapneumovirus is routinely performed for [facility] pediatric oncology and intensive care inpatients, and is available on other patients by placing an add-on request. Performed By: #### 5 2969-3 #### ALON Johnson (61525) [facility] ([facility]) [address] [place] [address] SARS-CoV-2 (COVID-19) RNA HANK+probe Ql (Resp) Not detected Normal Not Detected [facility] Comment on above: Order Comment: This assay [...] and has been validated for use at [facility]. Negative results do not preclude COVID-19 infections or Influenza A/B infections, and should not be used as the sole basis for diagnosis, treatment, or other management decisions. If Influenza A/B and RSV PCR results are negative, testing for Parainfluenza virus, Adenovirus and Metapneumovirus is routinely performed for [facility] pediatric oncology and intensive care inpatients, and is available on other patients by placing an add-on request. Performed By: #### 5 2969-3 #### ALON Johnson ([id number]) [facility] ([facility]) [address] [place] [address] Lactic Acidon 03-16-2023 Lactic Acid Lvl 0.6 mmol/L Normal 0.5-2.2 [facility] Comment on above: Performed By: #### 2 433971, 02237392, 6801980, 1224828, 5857757, 2550867 ####[facility] [address] [place] [address] Lipase Levelon 03-16-2023 Lipase Lvl 95 unit/L High 13-58 [facility] Comment on above: Performed By: #### 2 642358, 36253141, 4967717, 6395142, 7618146, 8468716 ####[facility] [address] [place] [address] Pre-Arrival Noteon Pre-Arrival Note Normal [facility] Transfer Documentson 024 Transfer Documents [id number] 04#1.00TIFF Normal [facility] eGFRon 03-16-2023 eGFR 99 mL/min/1.73 m2 Normal >=59 [facility] Comment on above: Order Comment: Order added by Discern Expert. Performed By: #### 2 345049, 95959270, 1240909, 2231407, 8716656, 1501129 ####[facility] [address] [place] [address] BB Draw & Holdon 03-15-2023 BB D&H Sample drawn for Blood Ba Normal [facility] Comment on above: Performed By: #### 2 955975, 83311244, 55553899, 4760228, 3166590, 4201973, 22962638, 3954997, 51210510 ####[facility] [address] [place] [address] BMPon 03-15-2023 Anion gap [Moles/Vol] 12 mmol/L Normal 6-16 [facility] Comment on above: Performed By: #### 2 205540, 93570282, 26117499, 7341214, 9202298, 6440194, 25361292, 5566195, 70825609 ####[facility] [address] [place] [address] BUN/Creat Ratio 10 No Units Normal 10-20 [facility] Comment on above: Performed By: #### 2 981944, 47453655, 80023768, 9745838, 9768824, 5916544, 43334120, 3105603, 04908311 ####[facility] [address] [place] [address] Calcium [Mass/Vol] 8.5 mg/dL Low 8.9-11.1 [facility] Comment on above: Performed By: #### 2 158033, 18845967, 08965961, 3408898, 1849637, 2379710, 40133362, 8631383, 85319349 ####[facility] [address] [place] [address] Chloride [Moles/Vol] 110 mmol/L Normal 101-111 [facility] Comment on above: Performed By: #### 2 870203, 08072977, 85955808, 2094962, 1671753, 6684725, 13346752, 9500171, 93459172 ####[facility] [address] [place] [address] CO2 [Moles/Vol] 22 mmol/L Normal 21-31 [facility] Comment on above: Performed By: #### 2 131593, 88267723, 72180361, 7055920, 3572731, 6525585, 10544615, 3632301, 69839828 ####[facility] [address] [place] [address] Creatinine [Mass/Vol] 0.8 mg/dL Normal 0.5-1.3 [facility] Comment on above: Performed By: #### 2 852615, 38239082, 78679695, 6779317, 2610294, 6860897, 63860426, 8827781, 00468966 ####[facility] [address] [place] [address] Glucose [Mass/Vol] 79 mg/dL Normal 55-199 [facility] Comment on above: Performed By: #### 2 351650, 16719437, 50416860, 5227483, 1382716, 3117136, 98554663, 4390691, 01734850 ####[facility] [address] [place] [address] Potassium [Moles/Vol] 3.6 mmol/L Normal 3.5-5.3 [facility] Comment on above: Performed By: #### 2 449172, 77059570, 99831194, 0961916, 1024765, 9085361, 13586469, 9033989, 19157342 ####[facility] [address] [place] [address] Sodium [Moles/Vol] 140 mmol/L Normal 135-145 [facility] Comment on above: Performed By: #### 2 303672, 00572297, 55719887, 9182486, 2135577, 1887517, 09867983, 5846588, 36213960 ####[facility] [address] [place] [address] Urea nitrogen [Mass/Vol] 8 mg/dL Normal 5-21 [facility] Comment on above: Performed By: #### 2 473389, 25977077, 64018170, 2741690, 3286789, 6424312, 70974871, 2855337, 29947530 ####[facility] [address] [place] [address] CBC w/ Auto Diffon 01-29-202 4 Basophil Absolute 0.1 E9/L Normal 0.0-0.2 [facility] Comment on above: Performed By: #### 2 802632, 43030046, 67500800, 9788928, 3060361, 7598541, 14530422, 6339135, 51279795 ####[facility] [address] [place] [address] Basophils/100 WBC (Bld) 0.9 % Normal 0.0-2.0 [facility] Comment on above: Performed By: #### 2 843335, 22912044, 97992748, 4515182, 2280170, 6237962, 32911162, 7965483, 65446899 ####[address] [place] [address] Eos Absolute 0.6 E9/L High 0.0-0.5 [facility] Comment on above: Performed By: #### 2 124476, 40420667, 52123027, 9354830, 5217960, 8148818, 17418854, 5418772, 09916574 ####[address] [address] [address] Eosinophils/100 WBC (Bld) 9.6 % High 0.0-8.0 [facility] Comment on above: Performed By: #### 2 572391, 65536395, 90083884, 1165058, 3596779, 9122522, 47631876, 6859168, 47663647 ####[address] [place] [address] Erythrocyte distribution width (RBC) [Ratio] 13.2 % Normal 10.9-14.2 [facility] Comment on above: Performed By: #### 2 912954, 82508508, 39237962, 9337263, 5060812, 5389466, 06172769, 3060911, 53036505 ####[address] [place] [address] Hematocrit (Bld) [Volume fraction] 36.0 % Normal 34.0-46.0 [facility] Comment on above: Performed By: #### 2 120652, 63971322, 19971333, 2903222, 7498302, 0721150, 43512327, 8242657, 56656286 ####[facility] [address] [place] [address] Hemoglobin (Bld) [Mass/Vol] 12.2 g/dL Normal 12.0-16.0 [facility] Comment on above: Performed By: #### 2 754096, 21360132, 30896691, 9173740, 9378082, 3322683, 42747873, 3124324, 05474484 ####[facility] [address] [place] [address] Lymph Absolute 2.0 E9/L Normal 1.0-4.0 [facility] Comment on above: Performed By: #### 2 305375, 85388471, 67591368, 1170193, 1963105, 7122995, 81782465, 8123520, 60170382 ####[address] [address] Lymphocytes/100 WBC (Bld) 32.4 % Normal 14.0-50.0 [facility] Comment on above: Performed By: #### 2 187943, 50336889, 99143190, 1496775, 6288661, 2919773, 59640366, 7251225, 06181219 ####[address] [place] [address] MCH (RBC) [Entitic mass] 30.6 pg Normal 27.0-34.0 [facility] Comment on above: Performed By: #### 2 102608, 18074877, 24701205, 7537727, 9815260, 7615003, 42988848, 8629221, 71447533 ####[facility] [address] [place] [address] MCHC (RBC) [Mass/Vol] 34.3 g/dL Normal 31.4-36.0 [facility] Comment on above: Performed By: #### 2 637172, 94864245, 03779751, 1695234, 2498823, 8673966, 74794721, 8852158, 04343108 ####[facility] [address] [place] [address] MCV (RBC) [Entitic vol] 89.0 fL Normal 80.0-100.0 [facility] Comment on above: Performed By: #### 2 761217, 28646597, 20597366, 5045240, 4669674, 5971251, 45896250, 1437213, 05607172 ####[address] [place] [address] [place] Absolute 0.3 E9/L Normal 0.2-1.0 [facility] Comment on above: Performed By: #### 2 187342, 76470706, 91868960, 4010111, 7961038, 7264920, 59910931, 2280579, 31994470 ####[address] [address] Monocytes/100 WBC (Bld) 5.6 % Normal 4.0-14.0 [facility] Comment on above: Performed By: #### 2 089469, 00299282, 57892568, 7178319, 1176229, 5872564, 70813253, 5006199, 74536175 ####[address] [address] Neutro Absolute 3.2 E9/L Normal 2.0-7.5 [facility] Comment on above: Performed By: #### 2 370326, 23033281, 40777282, 8082669, 3564304, 0622064, 46877143, 2616693, 76597217 ####[facility] [address] [place] [address] Neutro Auto 51.5 % Normal 36.0-75.0 [facility] Comment on above: Performed By: #### 2 124900, 37528225, 47078306, 2371318, 7655498, 4521921, 82587314, 0611555, 86585633 ####[facility] [address] [place] [address] Platelet 309.0 E9/L Normal 150.0-500.0 [facility] Comment on above: Result Comment: Demetra meneses with slide review Performed By: #### 2 694955, 39569705, 92049242, 2516414, 6389271, 1389496, 28570840, 9614278, 81545222 ####[facility] [address] [place] [address] Platelet mean volume (Bld) [Entitic vol] 9.1 fL Normal 6.4-10.8 [facility] Comment on above: Performed By: #### 2 240368, 49089600, 73234289, 9147426, 3896082, 2671540, 68351510, 9263876, 84764194 ####[facility] [address] [place] [address] RBC 4.0 E12/L Low 4.3-5.9 [facility] Comment on above: Performed By: #### 2 412206, 28681110, 16098624, 8856584, 8910505, 8027344, 71841688, 3660534, 14897824 ####[facility] [address] [place] [address] WBC 6.1 E9/L Normal 4.0-11.0 [facility] Comment on above: Performed By: #### 2 828741, 50845089, 15273683, 9209681, 6294534, 7004823, 70100162, 5468327, 19280918 ####[address] [place] [address] CHEMISTRYOrdered By: SYSTEM SYSTEM on 03-15-2023 Lactic [...] Sensitivity Troponin I Instructions For Use, Alan Biddeford, September 2017) Urea nitrogen [Mass/Vol] 8 mg/dL Normal 5 - 21 mg/dL Remisol Chem Urea nitrogen/Creatinine [Mass ratio] 10 mg/mg Normal 10 - 20 Remisol Chem COAGULATIONOrdered By: Storm morocho Keven on 03-15-2023 aPTT Coag (PPP) [Time] 32.3 s Normal 25.1 - 36.5 second(s) [facility] Auto Coag Comment on above: Interpretive Data: [...] the same coagulation reagent and instrumentation as [facility]. Currently there are no coagulation studies available worldwide for children to 14 days, and no normal ranges. Heparin therapeutic range (represented by Anti-Factor Xa activity of 0.2 - 0.4 U/mL) corresponds to PTT of 56.6 - 109.0 sec. INR Coag (PPP) [Relative time] 1.1 {INR} Invalid Interpretation Code [facility] Auto Coag Comment on above: Interpretive Data: I NR results are specifically intended to assess patients stabilized on long-term Anticoagulation therapy suggested INR s Less Intensive Anticoagulation 2.0 3.0 Conventional Range 3.0 4.5 PT Coag (PPP) [Time] 12.6 s High 9.4 - 12.5 second(s) [facility] Auto Coag Comment on above: Interpretive Data: [...] the same coagulation reagent and instrumentation as [facility]. Currently there are no coagulation studies available worldwide for children to 14 days, and no normal ranges. CT Abdomen/Pelvis w/o Contra ston 03-15-2023 CT Abdomen/Pelvis w/o Contrast Normal [facility] Consent for Treatmenton 02-16 Consent for Treatment [id number] 3B#1.00TIFF Normal [facility] Discharge Instructionson Discharge Instructions [id number] 236#1.00TIFF Normal [facility] ED Clinical Summaryon 2023 ED Clinical Summary Normal [facility] ED Note-Physicianon 03-15-19 ED Note-Physician Normal [facility] Comment on above: Result Comment: Elec tronically Signed By: Earnest Jett DO\.br\Date and Time Signed: 03/15/23 17:31 EST ED Patient Education Noteon 03-15-2023 ED Patient Education Note Normal [facility] ED Patient Summaryon 024 ED Patient Summary Normal [facility] EMS Documentationon 03-15-19 EMS Documentation Please click on link to see report Normal [facility] Comment on above: Result Comment: Miss [...] Normal 80.0 - 100.0 fL Remisol Heme [place] Absolute 0.3 E9/L Normal 0.2 - 1.0 [...] 03-15-2023 Albumin [Mass/Vol] 3.6 g/dL Normal 3.3-5.0 [facility] Comment on above: Performed By: #### 2 123709, 34923451, 90554886, 8237313, 0135953, 3641587, 91101305, 4233339, 45886423 ####[address] [place] [address] Albumin/Globulin [Mass ratio] 1.4 {ratio} Normal 1.1-2.2 [facility] Comment on above: Performed By: #### 2 778943, 49253857, 27090726, 4021205, 4808067, 2465715, 55957778, 1881602, 48120082 ####[address] [place] [address] Alk Phos 64 Int._Unit/L Normal 21-98 [facility] Comment on above: Performed By: #### 2 311430, 02820773, 80819343, 5612411, 9634403, 1520668, 05724200, 3986981, 10887773 ####[address] [address] ALT 20 Int._Unit/L Normal 6-46 [facility] Comment on above: Performed By: #### 2 151096, 94401243, 50834259, 7619431, 6912567, 4200439, 67508555, 9828460, 78638303 ####[address] [address] AST 35 Int._Unit/L Normal 5-43 [facility] Comment on above: Performed By: #### 2 094987, 84487699, 31768287, 0115389, 7295818, 2301402, 98702480, 9257132, 97231644 ####[address] [place] [address] Bili Direct 0.0 mg/dL Normal 0.0-0.4 [facility] Comment on above: Performed By: #### 2 107573, 33760767, 59383315, 1476764, 0924137, 1245217, 43288489, 6931271, 84380544 ####[facility] [address] [place] [address] Bili Indirect 0.2 mg/dL Normal 0.1-0.9 [facility] Comment on above: Performed By: #### 2 156985, 63771235, 93905375, 6881328, 4282086, 7557926, 87137797, 7969273, 98815882 ####[facility] [address] [place] [address] Bili Total 0.2 mg/dL Normal 0.0-1.1 [facility] Comment on above: Performed By: #### 2 608141, 57673931, 17700633, 0131771, 2455199, 8962594, 07742690, 0515013, 19937122 ####[address] [place] [address] Globulin (S) [Mass/Vol] 2.6 g/dL Normal 1.4-4.0 [facility] Comment on above: Performed By: #### 2 115431, 70809261, 64760599, 1746582, 7689758, 7981118, 41037802, 4009494, 81525784 ####[address] [place] [address] Protein [Mass/Vol] 6.2 g/dL Normal 6.0-7.8 [facility] Comment on above: Performed By: #### 2 093872, 22674734, 02476618, 7603981, 3750243, 1537902, 34335462, 4503219, 37032232 ####[address] [place] [address] Home Health Recordson 2023 Home Health Records [id number] 1#1.00TIFF Normal [facility] Lactic Acidon 03-15-2023 Lactic Acid Lvl 0.7 mmol/L Normal 0.5-2.2 [facility] Comment on above: Performed By: #### 2 728710, 00313799, 63579981, 7021914, 9629774, 0617340, 94722567, 2372524, 82651442 ####[facility] [address] [place] [address] Lipase Levelon 03-15-2023 Lipase Lvl 115 unit/L High 13-58 [facility] Comment on above: Performed By: #### 2 303288, 36237305, 16604132, 8031974, 4500077, 5416718, 76178210, 2257404, 54769499 ####[facility] [address] [place] [address] PT & PTTon 03-15-2023 aPTT Coag (PPP) [Time] 32.3 second(s) Normal 25.1-36.5 [facility] Comment on above: Result Comment: Para [...] the same coagulation reagent and instrumentation as [facility]. Currently there are no coagulation studies available worldwide for children to 14 days, and no normal ranges. Heparin therapeutic range (represented by Anti-Factor Xa activity of 0.2 - 0.4 U/mL) corresponds to PTT of 56.6 - 109.0 sec. Performed By: #### 2 418372, 63212104, 26110039, 0741339, 7902932, 5203729, 21579428, 4380770, 96827542 ####[facility] [address] [place] [address] INR Coag (PPP) [Relative time] 1.1 {INR} Invalid Interpretation Code [facility] Comment on above: Result Comment: INR results are specifically intended to assess patients stabilized on long-term Anticoagulation therapy suggested INR?s ?Less Intensive Anticoagulation? 2.0 ? 3.0Conventional Range 3.0 ? 4.5 Performed By: #### 2 680821, 54111105, 01697332, 8479057, 2497999, 0661171, 69678770, 9105676, 06057137 ####[facility] [address] [place] [address] PT Coag (PPP) [Time] 12.6 second(s) High 9.4-12.5 [facility] Comment on above: Result Comment: 15 [...] the same coagulation reagent and instrumentation as [facility]. Currently there are no coagulation studies available worldwide for children to 14 days, and no normal ranges. Performed By: #### 2 422568, 22831837, 69464342, 2859516, 5314271, 7587015, 43724170, 1840883, 37435696 ####[facility] [address] [place] [address] Pre-Arrival Noteon Pre-Arrival Note Normal [facility] Troponin 0 Hr.on 03-15-2023 Troponin I.cardiac [Mass/Vol] ng/mL Low 10.10-27.10 [facility] Comment on above: Result Comment: The 95% CI (Confidence Interval) PPV (Positive Predictive Value) for myocardial infarction in females is 38 pg/mL, in males 51 pg/mL. The results should be used in conjunction with clinical conditions of myocardial infarction.(Access High Sensitivity Troponin I Instructions For Use, Alan Gordy, September 2017) Performed By: #### 2 730073, 93265555, 14482260, 1868390, 2141193, 8548316, 37299663, 2380240, 48170808 ####[facility] [address] [place] [address] UA With Cult Reflexon 2023 Bilirubin Ql (U) Negative Normal Negative [facility] Comment on above: Performed By: #### 1 9264184 ####[address] [address] Clarity (U) CLEAR Normal Clear [facility] Comment on above: Performed By: #### 1 2400141 ####[address] [address] Color (U) ORANGE Abnormal Yellow [facility] Comment on above: Performed By: #### 1 0962959 ####[facility] [address] [place] [address] Crystals LM Ql (Urine sed) Present Normal [facility] Comment on above: Performed By: #### 1 9649873 ####[address] [address] Epithelial cells.squamous LM.HPF (Urine sed) [#/Area] 0-2 Normal 0-2 [facility] Comment on above: Performed By: #### 1 4732963 ####[facility] [address] [place] [address] Glucose Test strip (U) [Mass/Vol] TRACE Abnormal Negative [facility] Comment on above: Performed By: #### 1 8880491 ####[facility] [address] [place] [address] Hemoglobin Ql (U) Negative Normal Negative [facility] Comment on above: Performed By: #### 1 2599592 ####[address] [address] Ketones (U) [Mass/Vol] Negative Normal Negative [facility] Comment on above: Performed By: #### 1 7426854 ####[address] [address] [place].plasma/Lith ium.RBC (Bld) [Mass ratio] 0-3 Normal 0-3 [facility] Comment on above: Performed By: #### 1 9680770 ####[address] [address] Nitrite Ql (U) See Comment Normal Negative [facility] Comment on above: Result Comment: Test Not Performed Due To Interfering Substance Performed By: #### 1 2289714 ####[address] [address] pH (U) 7.0 [pH] Invalid Interpretation Code 5.0-9.0 [facility] Comment on above: Performed By: #### 1 9211970 ####[address] [address] Protein (U) [Mass/Vol] 1+ Abnormal Negative [facility] Comment on above: Performed By: #### 1 3948839 ####[address] [address] Specific gravity (U) [Rel density] 1.010 Invalid Interpretation Code 1.005-1.030 [facility] Comment on above: Performed By: #### 1 3691095 ####[address] [address] Type of Urine collection method Clean Catch Normal [facility] Comment on above: Performed By: #### 1 8597015 ####[address] [address] Urobilinogen Qn (U) See Comment Normal 0.0-1.0 [facility] Comment on above: Result Comment: Test Not Performed Due To Interfering Substance Performed By: #### 1 0418274 ####[address] [address] WBC Auto Ql (U) Negative Normal Negative [facility] Comment on above: Performed By: #### 1 9481165 ####[facility] [address] [place] [address] WBC LM.HPF (Urine sed) [#/Area] 0-5 Normal 0-5 [facility] Comment on above: Performed By: #### 1 4938016 ####[facility] [address] [place] [address] URINALYSISOrdered By: Alcira Lee on 03-15-2023 Bilirubin Ql (U) Negative (03/15/23 2:43 PM) Normal Negative [facility] UA Auto SS Clarity (U) Clear (03/15/23 2:43 PM) Normal Clear [facility] UA Auto SS Color (U) [place] *ABN* (03/15/23 2:43 PM) Invalid Interpretation Code [...] PM) Normal Negative [facility] UA Auto SS [place].plasma/Lith ium.RBC (Bld) [Mass ratio] 0-3 /HPF Normal [...] PM) Invalid Interpretation Code 1.005 - 1.030 [facility] UA Auto SS UA Spec Desc Clean Catch (03/15/23 2:43 PM) Normal [facility] UA Auto SS Urobilinogen Qn (U) See Comment 2 (03/15/23 2:43 PM) Normal 0.0 - 1.0 [facility] UA Auto SS Comment on above: Result Comment: Test Not Performed Due To Interfering Substance WBC Auto Ql (U) Negative (03/15/23 2:43 PM) Normal Negative [facility] UA Auto SS WBC LM.HPF (Urine sed) [#/Area] 0-5 /HPF Normal 0-5/HPF [facility] UA Auto SS XR Chest Single Viewon 03-15 XR Chest Single View Normal [facility] eGFRon 03-15-2023 eGFR 99 mL/min/1.73 m2 Normal >=59 [facility] Comment on above: Order Comment: Order added by Discern Expert. Performed By: #### 2 275251, 35172320, 26794883, 8806263, 6140991, 2721621, 69571220, 8826901, 78219923 ####[facility] [address] [place] [address] Basic metabolic 2000 panelon 03-10-2023 Anion gap [Moles/Vol] 11 mmol/L NINF - 19 mmol/L [facility] Calcium [Mass/Vol] 8.0 mg/dL Low 8.5 - 10.4 mg/dL [facility] Chloride [Moles/Vol] 108 mmol/L High 97 - 107 mmol/L [facility] CO2 [Moles/Vol] 22 mmol/L Low 24 - 31 mmol/L [facility] Creatinine [Mass/Vol] 0.60 mg/dL 0.40 - 1.60 mg/dL [facility] eGFR - PINF [facility] Comment on above: Calculations of jessica mated GFR are performed using the 2020 CKD-EPI Study Refit equation without the race variable for the IDMS-Traceable creatinine methods. https://jasn.asnjournals.org/content/early//ASN.47241354 88 Glucose [Mass/Vol] 89 mg/dL 65 - 99 mg/dL [facility] Interpretation and review of laboratory results Abnormal [facility] Potassium [Moles/Vol] 3.7 mmol/L 3.4 - 5.1 mmol/L [facility] Sodium [Moles/Vol] 141 mmol/L 133 - 145 mmol/L [facility] Urea nitrogen [Mass/Vol] 4 mg/dL Low 8 - 25 mg/dL [facility] Anion gap [Moles/Vol] 11 mmol/L Normal <=19 [facility] Comment on above: Performed By: #### 5 2969-3 #### ALON AMBROSIO L ([id number]) [facility] ([facility]) [address] [place] [address] Calcium [Mass/Vol] 8.0 mg/dL Low 8.5-10.4 [facility] Comment on above: Performed By: #### 5 2969-3 #### ALON AMBROSIO L ([id number]) [facility] ([facility]) [address] [place] [address] Chloride [Moles/Vol] 108 mmol/L High 97-107 [facility] Comment on above: Performed By: #### 5 2969-3 #### ALON MARINMOKEL L ([id number]) [facility] ([facility]) [address] [place] [address] CO2 [Moles/Vol] 22 mmol/L Low 24-31 [facility] Comment on above: Performed By: #### 5 2969-3 #### ALON AMBROSIO L ([id number]) [facility] ([facility]) [address] [place] [address] Creatinine [Mass/Vol] 0.60 mg/dL Normal 0.40-1.60 [facility] Comment on above: Performed By: #### 5 2969-3 #### ALON PRECIADOER L ([id number]) [facility] ([facility]) [address] [place] [address] GFR/1.73 sq M.predicted MDRD (S/P/Bld) [Vol rate/Area] mL/min/{1.73_m2} Normal >60 [facility] Comment on above: Result Comment: Calc ulations of estimated GFR are performed using the 2020 CKD-EPI Study Refit equation without the race variable for the IDMS-Traceable creatinine methods. https://jasn.asnjournals.org/content//ASN.35068016 88 Performed By: #### 5 2969-3 #### ALON PRECIADOER L ([id number]) [facility] ([facility]) [address] [place] [address] Glucose [Mass/Vol] 89 mg/dL Normal 65-99 [facility] Comment on above: Performed By: #### 5 2969-3 #### ALON MARINMOTZER L ([id number]) [facility] ([facility]) [address] [place] [address] Potassium [Moles/Vol] 3.7 mmol/L Normal 3.4-5.1 [facility] Comment on above: Performed By: #### 5 2969-3 #### ALON MARINMOTZER L ([id number]) [facility] ([facility]) [address] [place] [address] Sodium [Moles/Vol] 141 mmol/L Normal 133-145 [facility] Comment on above: Performed By: #### 5 2969-3 #### ALON MARINMOTZER L ([id number]) [facility] ([facility]) [address] [place] [address] Urea nitrogen [Mass/Vol] 4 mg/dL Low 8-25 [facility] Comment on above: Performed By: #### 5 2969-3 #### ALON MARINMOTZER L ([id number]) [facility] ([facility]) [address] [place] [address] CBC panel Auto (Bld)on 03-10 Erythrocyte distribution width (RBC) [Ratio] 12.9 % 11.5 - 14.5 % [facility] Hematocrit (Bld) [Volume fraction] 31.3 % Low 36.0 - 46.0 % [facility] Hemoglobin (Bld) [Mass/Vol] 10.6 g/dL Low 12.0 - 16.0 g/dL [facility] Interpretation and review of laboratory results Abnormal [facility] MCH (RBC) [Entitic mass] 30.7 pg 26.0 - 34.[address] [facility] MCHC (RBC) [Mass/Vol] 33.9 g/dL 32.0 - 36.0 g/dL [facility] MCV (RBC) [Entitic vol] 91 fL 80 - [address] [facility] Nucleated RBC/100 WBC (Bld) [Ratio] 0.0 % [facility] Platelets (Bld) [#/Vol] 215 10*3/uL [facility] RBC (Bld) [#/Vol] 3.45 10*6/uL [facility] WBC (Bld) [#/Vol] 4.0 10*3/uL [facility] Erythrocyte distribution width (RBC) [Ratio] 12.9 % Normal 11.5-14.5 [facility] Comment on above: Performed By: #### 5 2969-3 #### ALON Johnson ([id number]) [facility] ([facility]) [address] [place] [address] Hematocrit (Bld) [Volume fraction] 31.3 % Low 36.0-46.0 [facility] Comment on above: Performed By: #### 5 2969-3 #### ALON Johnson ([id number]) [facility] ([facility]) [address] [place] [address] Hemoglobin (Bld) [Mass/Vol] 10.6 g/dL Low 12.0-16.0 [facility] Comment on above: Performed By: #### 5 2969-3 #### ALON Johnson ([id number]) [facility] ([facility]) [address] [place] [address] MCH (RBC) [Entitic mass] 30.7 pg Normal 26.0-34.0 [facility] Comment on above: Performed By: #### 5 2969-3 #### ALON Johnson ([id number]) [facility] ([facility]) [address] [place] [address] MCHC (RBC) [Mass/Vol] 33.9 g/dL Normal 32.0-36.0 [facility] Comment on above: Performed By: #### 5 2969-3 #### ALON Johsnon ([id number]) [facility] ([facility]) [address] [place] [address] MCV (RBC) [Entitic vol] 91 fL Normal 80-100 [facility] Comment on above: Performed By: #### 5 2969-3 #### ALON Johnson ([id number]) [facility] ([facility]) [address] [place] [address] Nucleated RBC/100 WBC (Bld) [Ratio] 0.0 /100 WBCs Normal 0.0-0.0 [facility] Comment on above: Performed By: #### 5 2969-3 #### ALON Johnson ([id number]) [facility] ([facility]) [address] [place] [address] Platelets (Bld) [#/Vol] 215 x10*3/uL Normal 150-450 [facility] Comment on above: Performed By: #### 5 2969-3 #### ALON Johnson ([id number]) [facility] ([facility]) [address] [place] [address] RBC (Bld) [#/Vol] 3.45 x10*6/uL Low 4.00-5.20 [facility] Comment on above: Performed By: #### 5 2969-3 #### ALON Johnson ([id number]) [facility] ([facility]) [address] [place] [address] WBC (Bld) [#/Vol] 4.0 x10*3/uL Low 4.4-11.3 [facility] Comment on above: Performed By: #### 5 2969-3 #### ALON Johnson ([id number]) [facility] ([facility]) [address] [place], [place] [id number] Gastrointestinal pathogens i dentified HANK+probe Nom (Stl)Ordered By: Edwige Bronson on 03-10-2023 Campylobacter Group Not detected Not Detected [facility] E. coli stx1 gene HANK+probe Ql (Stl) Not detected Not Detected [facility] E. coli stx2 gene HANK+probe Ql (Stl) Not detected Not Detected [facility] Interpretation and review of laboratory results Normal [facility] Norovirus genogroup I and II RNA HANK+probe Nom (Stl) Not detected Not Detected [facility] Rotavirus RNA HANK+probe Nom (Stl) Not detected Not Detected [facility] Salmonella species Not detected Not Detected [facility] Shigella sp DNA HANK+probe Ql (Unsp spec) Not detected Not Detected [facility] Vibrio Group Not detected Not Detected [facility] Y. enterocolitica DNA HAKN+probe Ql (Stl) Not detected Not Detected [facility] Glucose Test strip manual (B ld) [Mass/Vol]on 03-10-2023 Glucose [Mass/Vol] 104 mg/dL High 74 - 99 mg/dL [facility] Interpretation and review of laboratory results Abnormal [facility] Glucose [Mass/Vol] 104 mg/dL High 74-99 [facility] Comment on above: Performed By: #### 5 2969-3 #### ALON Johnson ([id number]) [facility] ([facility]) [address] [place] [address] Glucose [Mass/Vol] 82 mg/dL 74 - 99 mg/dL [facility] Glucose [Mass/Vol] 109 mg/dL High 74 - 99 mg/dL [facility] Interpretation and review of laboratory results Normal [facility] Interpretation and review of laboratory results Abnormal [facility] Glucose [Mass/Vol] 109 mg/dL High 74-99 [facility] Comment on above: Performed By: #### 5 2969-3 #### ALON Johnson ([id number]) [facility] ([facility]) [address] [place] [address] Glucose [Mass/Vol] 84 mg/dL 74 - 99 mg/dL [facility] Interpretation and review of laboratory results Normal [facility] Glucose [Mass/Vol] 84 mg/dL Normal 74-99 [facility] Comment on above: Performed By: #### 5 2969-3 #### ALON Johnson ([id number]) [facility] ([facility]) [address] [place] [address] Glucose [Mass/Vol] 79 mg/dL 74 - 99 mg/dL [facility] Interpretation and review of laboratory results Normal [facility] Glucose [Mass/Vol] 79 mg/dL Normal 74-99 [facility] Comment on above: Performed By: #### 5 2969-3 #### ALON Johnson ([id number]) [facility] ([facility]) [address] [place] [address] Basic metabolic 2000 panelon 03-09-2023 Anion gap [Moles/Vol] 10 mmol/L NINF - 19 mmol/L [facility] Calcium [Mass/Vol] 8.3 mg/dL Low 8.5 - 10.4 mg/dL [facility] Chloride [Moles/Vol] 105 mmol/L 97 - 107 mmol/L [facility] CO2 [Moles/Vol] 20 mmol/L Low 24 - 31 mmol/L [facility] Creatinine [Mass/Vol] 0.60 mg/dL 0.40 - 1.60 mg/dL [facility] eGFR - PINF [facility] Comment on above: Calculations of jessica mated GFR are performed using the 2020 CKD-EPI Study Refit equation without the race variable for the IDMS-Traceable creatinine methods. https://jasn.asnjournals.org/content//ASN.14425236 88 Glucose [Mass/Vol] 98 mg/dL 65 - 99 mg/dL [facility] Interpretation and review of laboratory results Abnormal [facility] Potassium [Moles/Vol] 3.7 mmol/L 3.4 - 5.1 mmol/L [facility] Sodium [Moles/Vol] 135 mmol/L 133 - 145 mmol/L [facility] Urea nitrogen [Mass/Vol] mg/dL Low 8 - 25 mg/dL [facility] Comment on above: Result rechecked [facility] Anion gap [Moles/Vol] 10 mmol/L Normal <=19 [facility] Comment on above: Performed By: #### 2 4321-2 ####MELISA Galvan ([id number])[facility] ()[address] [place] [address] Calcium [Mass/Vol] 8.3 mg/dL Low 8.5-10.4 [facility] Comment on above: Performed By: #### 2 4321-2 ####MELISA Galvan ([id number])[facility] ()[address] [place] [address] Chloride [Moles/Vol] 105 mmol/L Normal 97-107 [facility] Comment on above: Performed By: #### 2 4321-2 ####MELISA Galvan ([id number])[facility] ()[address] [place] [address] CO2 [Moles/Vol] 20 mmol/L Low 24-31 [facility] Comment on above: Performed By: #### 2 4321-2 ####MELISA Galvan ([id number])[facility] ()[address] [place] [address] Creatinine [Mass/Vol] 0.60 mg/dL Normal 0.40-1.60 [facility] Comment on above: Performed By: #### 2 4321-2 ####MELISA Galvan ([id number])[facility] ()[address] [place] [address] GFR/1.73 sq M.predicted MDRD (S/P/Bld) [Vol rate/Area] mL/min/{1.73_m2} Normal >60 [facility] Comment on above: Result Comment: Calc ulations of estimated GFR are performed using the 2020 CKD-EPI Study Refit equation without the race variable for the IDMS-Traceable creatinine methods. https://jasn.asnjournals.org/content//ASN.25457967 88 Performed By: #### 2 4321-2 ####MELISA Galvan ([id number])[facility] ()[address] [place] [address] Glucose [Mass/Vol] 98 mg/dL Normal 65-99 [facility] Comment on above: Performed By: #### 2 4321-2 ####MELISA Galvan ([id number])[facility] ()[address] [place] [address] Potassium [Moles/Vol] 3.7 mmol/L Normal 3.4-5.1 [facility] Comment on above: Performed By: #### 2 4321-2 ####MELISA Galvan ([id number])[facility] ()[address] [place] [address] Sodium [Moles/Vol] 135 mmol/L Normal 133-145 [facility] Comment on above: Performed By: #### 2 4321-2 ####MELISA Galvan ([id number])[facility] ()[address] [place] [address] Urea nitrogen [Mass/Vol] mg/dL Low 8-25 [facility] Comment on above: Result Comment: Resu lt rechecked Performed By: #### 2 4321-2 ####MELISA Galvan ([id number])[facility] ()[address] [place] [address] C. difficile toxin A+B tcdA+ tcdB genes HANK+probe Ql (Stl)on 03-09-2023 Interpretation and review of laboratory results Normal [facility] This test is an FDA-cleared real-time PCR [...] performed more than once per 7 days. [facility] C. difficile, PCRon 03-09-19 24 C. difficile toxin A+B tcdA+tcdB genes HANK+probe Ql (Stl) Not detected Not Detected [facility] CBC panel Auto (Bld)on 03-09 Erythrocyte distribution width (RBC) [Ratio] 12.7 % 11.5 - 14.5 % [facility] Hematocrit (Bld) [Volume fraction] 34.6 % Low 36.0 - 46.0 % [facility] Hemoglobin (Bld) [Mass/Vol] 11.7 g/dL Low 12.0 - 16.0 g/dL [facility] Interpretation and review of laboratory results Abnormal [facility] MCH (RBC) [Entitic mass] 30.8 pg 26.0 - 34.[address] [facility] MCHC (RBC) [Mass/Vol] 33.8 g/dL 32.0 - 36.0 g/dL [facility] MCV (RBC) [Entitic vol] 91 fL 80 - [address] [facility] Nucleated RBC/100 WBC (Bld) [Ratio] 0.0 % [facility] Platelets (Bld) [#/Vol] 226 10*3/uL [facility] RBC (Bld) [#/Vol] 3.80 10*6/uL [facility] WBC (Bld) [#/Vol] 6.8 10*3/uL [facility] Erythrocyte distribution width (RBC) [Ratio] 12.7 % Normal 11.5-14.5 [facility] Comment on above: Performed By: #### 5 8410-2 ####MELISA Galvan ([id number])[facility] ()[address] [place] [address] Hematocrit (Bld) [Volume fraction] 34.6 % Low 36.0-46.0 [facility] Comment on above: Performed By: #### 5 8410-2 ####MELISA Galvan ()[facility] ()[address] [place] [address] Hemoglobin (Bld) [Mass/Vol] 11.7 g/dL Low 12.0-16.0 [facility] Comment on above: Performed By: #### 5 8410-2 ####MELISA Galvan ()[facility] ()[address] [place] [address] MCH (RBC) [Entitic mass] 30.8 pg Normal 26.0-34.0 [facility] Comment on above: Performed By: #### 5 8410-2 ####MELISA Galvan ()[facility] ()[address] [place] [address] MCHC (RBC) [Mass/Vol] 33.8 g/dL Normal 32.0-36.0 [facility] Comment on above: Performed By: #### 5 8410-2 ####MELISA Galvan ()[facility] ()[address] [place] [address] MCV (RBC) [Entitic vol] 91 fL Normal 80-100 [facility] Comment on above: Performed By: #### 5 8410-2 ####MELISA Galvan ()[facility] ()[address] [place] [address] Nucleated RBC/100 WBC (Bld) [Ratio] 0.0 /100 WBCs Normal 0.0-0.0 [facility] Comment on above: Performed By: #### 5 8410-2 ####MELISA Galvan ([id number])[facility] ()[address] [place] [address] Platelets (Bld) [#/Vol] 226 x10*3/uL Normal 150-450 [facility] Comment on above: Performed By: #### 5 8410-2 ####MELISA Galvan ([id number])[facility] ()[address] [place] [facility] [place] [address] RBC (Bld) [#/Vol] 3.80 x10*6/uL Low 4.00-5.20 [facility] Comment on above: Performed By: #### 5 8410-2 ####MELISA Galvan ([id number])[facility] ()[address] [facility] [place] [facility] [place] [address] WBC (Bld) [#/Vol] 6.8 x10*3/uL Normal 4.4-11.3 [facility] Comment on above: Performed By: #### 5 8410-2 ####MELISA Galvan ([id number])[facility] ()[address] [employer] [facility] [address] Clostridioides difficile tox in A+B tcdA+tcdB geneson 03-09-2023 C. difficile toxin A+B tcdA+tcdB genes HANK+probe Ql (Stl) Clostridioides difficile toxin A+B tcdA+tcdB genes Not Detected Normal Not Detected [facility] Comment on above: Order Comment: This test [...] Performed By: #### 8 0685-1 ####MELISA Galvan ([id number])[facility] ()[address] [facility] [place] [place] [address] Gastrointestinal pathogens i dentifiedon 03-09-2023 Gastrointestinal pathogens [...] Rotavirus RNA Not Detected Normal Not Detected [facility] Comment on above: Performed By: #### 5 2969-3 #### ALON Johnson ([id number]) [facility] ([facility]) [id number] [place] [address] Glucose Test strip manual (B ld) [Mass/Vol]on 03-09-2023 Glucose [Mass/Vol] 82 mg/dL Normal 74-99 [facility] Comment on above: Performed By: #### 5 2969-3 #### ALON Johnson ([id number]) [facility] ([facility]) [address] [place] [address] Glucose [Mass/Vol] 91 mg/dL 74 - 99 mg/dL [facility] Interpretation and review of laboratory results Normal [facility] Glucose [Mass/Vol] 91 mg/dL Normal 74-99 [facility] Comment on above: Performed By: #### 5 2969-3 #### ALON Johnson ([id number]) [facility] ([facility]) [address] [place] [address] Glucose [Mass/Vol] 83 mg/dL 74 - 99 mg/dL [facility] Interpretation and review of laboratory results Normal [facility] Glucose [Mass/Vol] 83 mg/dL Normal 74-99 [facility] Comment on above: Performed By: #### 2 341-6 ####MELISA Galvan ([id number])[facility] ()[address] [place] [address] Glucose [Mass/Vol] 82 mg/dL 74 - 99 mg/dL [facility] Interpretation and review of laboratory results Normal [facility] Glucose [Mass/Vol] 82 mg/dL Normal 74-99 [facility] Comment on above: Performed By: #### 2 341-6 ####MELISA Galvan ([id number])[facility] ()[address] [place] [address] Glucose [Mass/Vol] 120 mg/dL High 74 - 99 mg/dL [facility] Interpretation and review of laboratory results Abnormal [facility] Glucose [Mass/Vol] 120 mg/dL High 74-99 [facility] Comment on above: Performed By: #### 2 341-6 ####MELISA Galvan ([id number])[facility] ()[address] [place] [address] Glucose [Mass/Vol] 62 mg/dL Low 74 - 99 mg/dL [facility] Interpretation and review of laboratory results Abnormal [facility] Glucose [Mass/Vol] 62 mg/dL Low 74-99 [facility] Comment on above: Performed By: #### 2 341-6 ####MELISA Galvan ([id number])[facility] ()[address] [place] [address] Basic metabolic 2000 panelon 03-08-2023 Anion gap [Moles/Vol] 8 mmol/L NINF - 19 mmol/L [facility] Calcium [Mass/Vol] 8.2 mg/dL Low 8.5 - 10.4 mg/dL [facility] Chloride [Moles/Vol] 106 mmol/L 97 - 107 mmol/L [facility] CO2 [Moles/Vol] 22 mmol/L Low 24 - 31 mmol/L [facility] Creatinine [Mass/Vol] 0.70 mg/dL 0.40 - 1.60 mg/dL [facility] eGFR - PINF [facility] Comment on above: Calculations of jessica mated GFR are performed using the 2020 CKD-EPI Study Refit equation without the race variable for the IDMS-Traceable creatinine methods. https://jasn.asnjournals.org/content/early/ASN.72732700 88 Glucose [Mass/Vol] 91 mg/dL 65 - 99 mg/dL [facility] Interpretation and review of laboratory results Abnormal [facility] Potassium [Moles/Vol] 3.7 mmol/L 3.4 - 5.1 mmol/L [facility] Sodium [Moles/Vol] 136 mmol/L 133 - 145 mmol/L [facility] Urea nitrogen [Mass/Vol] 3 mg/dL Low 8 - 25 mg/dL [facility] Anion gap [Moles/Vol] 8 mmol/L Normal <=19 [facility] Comment on above: Performed By: #### 2 4323-8 #### MELISA Galvan (09120) [facility] () [address] [place] [address] Calcium [Mass/Vol] 8.2 mg/dL Low 8.5-10.4 [facility] Comment on above: Performed By: #### 2 4323-8 #### MELISA Galvan (16892) [facility] () [address] [place] [address] Chloride [Moles/Vol] 106 mmol/L Normal 97-107 [facility] Comment on above: Performed By: #### 2 4323-8 #### MELISA Galvan (41872) [facility] () [address] [place] [address] CO2 [Moles/Vol] 22 mmol/L Low 24-31 [facility] Comment on above: Performed By: #### 2 4323-8 #### MELISA Galvan (07827) [facility] () [address] [place] [address] Creatinine [Mass/Vol] 0.70 mg/dL Normal 0.40-1.60 [facility] Comment on above: Performed By: #### 2 4323-8 #### MELISA Galvan ([id number]) [facility] () [address] [place] [address] GFR/1.73 sq M.predicted MDRD (S/P/Bld) [Vol rate/Area] mL/min/{1.73_m2} Normal >60 [facility] Comment on above: Result Comment: Calc ulations of estimated GFR are performed using the 2020 CKD-EPI Study Refit equation without the race variable for the IDMS-Traceable creatinine methods. https://jasn.asnjournals.org/content//ASN.30714198 88 Performed By: #### 2 4323-8 #### MELISA Galvan ([id number]) [facility] () [address] [place] [address] Glucose [Mass/Vol] 91 mg/dL Normal 65-99 [facility] Comment on above: Performed By: #### 2 4323-8 #### MELISA Galvan (86906) [facility] () [address] [place] [address] Potassium [Moles/Vol] 3.7 mmol/L Normal 3.4-5.1 [facility] Comment on above: Performed By: #### 2 4323-8 #### MELISA Galvan (21027) [facility] () [address] [place] [address] Sodium [Moles/Vol] 136 mmol/L Normal 133-145 [facility] Comment on above: Performed By: #### 2 4323-8 #### MELISA Galvan (39458) [facility] () [address] [place] [address] Urea nitrogen [Mass/Vol] 3 mg/dL Low 8-25 [facility] Comment on above: Performed By: #### 2 4323-8 #### MELISA Galvan (60625) [facility] () [address] [place] [address] CBC panel Auto (Bld)on 03-08 Erythrocyte distribution width (RBC) [Ratio] 12.8 % 11.5 - 14.5 % [facility] Hematocrit (Bld) [Volume fraction] 32.2 % Low 36.0 - 46.0 % [facility] Hemoglobin (Bld) [Mass/Vol] 10.9 g/dL Low 12.0 - 16.0 g/dL [facility] Interpretation and review of laboratory results Abnormal [facility] MCH (RBC) [Entitic mass] 31.3 pg 26.0 - 34.[address] [facility] MCHC (RBC) [Mass/Vol] 33.9 g/dL 32.0 - 36.0 g/dL [facility] MCV (RBC) [Entitic vol] 93 fL 80 - [address] [facility] Nucleated RBC/100 WBC (Bld) [Ratio] 0.0 % [facility] Platelets (Bld) [#/Vol] 171 10*3/uL [facility] RBC (Bld) [#/Vol] 3.48 10*6/uL [facility] WBC (Bld) [#/Vol] 4.2 10*3/uL [facility] Erythrocyte distribution width (RBC) [Ratio] 12.8 % Normal 11.5-14.5 [facility] Comment on above: Performed By: #### 2 4323-8 #### MELISA Galvan (55932) [facility] () [address] [place] [address] Hematocrit (Bld) [Volume fraction] 32.2 % Low 36.0-46.0 [facility] Comment on above: Performed By: #### 2 4323-8 #### MELISA Galvan (50532) [facility] () [address] [place] [address] Hemoglobin (Bld) [Mass/Vol] 10.9 g/dL Low 12.0-16.0 [facility] Comment on above: Performed By: #### 2 4323-8 #### MELISA Galvan (86520) [facility] () [address] [place] [address] MCH (RBC) [Entitic mass] 31.3 pg Normal 26.0-34.0 [facility] Comment on above: Performed By: #### 2 4323-8 #### MELISA Galvan ([id number]) [facility] () [address] [place] [address] MCHC (RBC) [Mass/Vol] 33.9 g/dL Normal 32.0-36.0 [facility] Comment on above: Performed By: #### 2 4323-8 #### MELISA Galvan (67608) [facility] () [address] [place] [address] MCV (RBC) [Entitic vol] 93 fL Normal 80-100 [facility] Comment on above: Performed By: #### 2 4323-8 #### MELISA Galvan (14159) [facility] () [address] [place] [address] Nucleated RBC/100 WBC (Bld) [Ratio] 0.0 /100 WBCs Normal 0.0-0.0 [facility] Comment on above: Performed By: #### 2 4323-8 #### MELISA Galvan (38576) [facility] () [address] [place] [address] Platelets (Bld) [#/Vol] 171 x10*3/uL Normal 150-450 [facility] Comment on above: Performed By: #### 2 4323-8 #### MELISA Galvan (52589) [facility] () [address] [place] [address] RBC (Bld) [#/Vol] 3.48 x10*6/uL Low 4.00-5.20 [facility] Comment on above: Performed By: #### 2 4323-8 #### MELISA Galvan (62909) [facility] () [address] [place] [address] WBC (Bld) [#/Vol] 4.2 x10*3/uL Low 4.4-11.3 [facility] Comment on above: Performed By: #### 2 4323-8 #### MELISA Galvan (96144) [facility] () [address] [place] [address] Glucose Test strip manual (B ld) [Mass/Vol]on 03-08-2023 Glucose [Mass/Vol] 89 mg/dL 74 - 99 mg/dL [facility] Interpretation and review of laboratory results Normal [facility] Glucose [Mass/Vol] 89 mg/dL Normal 74-99 [facility] Comment on above: Performed By: #### 2 341-6 ####MELISA Galvan (78589)[facility] ()[address] [place] [address] Glucose [Mass/Vol] 85 mg/dL 74 - 99 mg/dL [facility] Interpretation and review of laboratory results Normal [facility] Glucose [Mass/Vol] 85 mg/dL Normal 74-99 [facility] Comment on above: Performed By: #### 2 341-6 ####MELISA Galvan ([id number])[facility] ()[address] [place] [address] Glucose [Mass/Vol] 151 mg/dL High 74 - 99 mg/dL [facility] Interpretation and review of laboratory results Abnormal [facility] Glucose [Mass/Vol] 151 mg/dL High 74-99 [facility] Comment on above: Performed By: #### 2 341-6 ####MELISA Galvan (15773)[facility] ()[address] [place] [address] Glucose [Mass/Vol] 89 mg/dL 74 - 99 mg/dL [facility] Interpretation and review of laboratory results Normal [facility] Glucose [Mass/Vol] 89 mg/dL Normal 74-99 [facility] Comment on above: Performed By: #### 2 4323-8 #### MELISA Galvan (68926) [facility] () [address] [place] [address] Glucose [Mass/Vol] 97 mg/dL 74 - 99 mg/dL [facility] Interpretation and review of laboratory results Normal [facility] Glucose [Mass/Vol] 97 mg/dL Normal 74-99 [facility] Comment on above: Performed By: #### 2 4323-8 #### MELISA Galvan (97841) [facility] () [address] [place] [address] Glucose [Mass/Vol] 102 mg/dL High 74 - 99 mg/dL [facility] Interpretation and review of laboratory results Abnormal [facility] Glucose [Mass/Vol] 102 mg/dL High 74-99 [facility] Comment on above: Performed By: #### 2 4323-8 #### MELISA Galvan ([id number]) [facility] () [address] [place] [address] Surgical pathology studyOrde red By: Melisa Rodriguez on 03-08-2023 Laboratory comment Ojhn (Report) [id number] mbGFuZzEwMzNcZnRuYm pcdWMxIHtccnRmMVxzc 1OhC9CsYbJuFIkupoXl XGRlZmxhbmcxMDMzXGZ 0bmJqXHVjMVxkZWZmMH zlPi0qjQFxjJnsMtUnF ZTia6cmtdEDBNneJTDH HJy4j9tmYXVjNfB1eEO zVUdeH4astaSbcRZpW7 Zxh6TdMBi9xY68HEBmg I3coJMoOJhltyKmTvU0 UHilCKKtSfJ5AAWopWI dGIFoB6mzVKEmKWjcAJ WnBUfwkQDtPQT8eXfcp 7B9wDTnbJQusVsgMcIp WgXnQmBHp3SlOOt0kHd kX7EtPBJsQxA4sJXoYN AaCMbxUBHrSXMdamY0p O73ISwzcaV4pBPrz6Hu q90vy653aO6luJWlSXG 3MTIyNDBccGFwZXJoMT W1RHUlcNDgM1zuFtMgc GUhW6GrCxOzuLZvA7Cb NcIqkGQaH0ZcBsZblGK aRIMibSP6HXebd959AD U0UyGdOH1oK8Giu9G0f U9dtEUsSUFpoHEbLqKs BZBxbu4pxUDmIMplm4G nBXT8lrJ7fFHxdPTtTL JbGT98Jiroy6HaAvmeV CM6KDPqqrDgo0Rqt6gw YyVmwnOsL5zvT5IjIUB oZWFkXHBnYnJkcmZvb3 Ciu5TfeBFtcYv6z7jkV FXjIELjlZxgh8ecURN7 NIYbJ2Z3kUNsy7aiJBq dWDOunVO3vrA6BQurIM EmfdS7hiE6GAesNQFxi ZI7yuM5USxqSLBxJuY3 prN7BWmcNLRwKNP7TdF jEFHgb5EmncvlWbJst1 YhgTZnUQrlR20do259U CMqswOdI0ozoQWumfzm qVZwvcbqTIrgnnY4BBN sXHBsYWluXGYxXGZzMj BcbGFuZzEwMzNcaGlja FxmMVxkYmNoXGYxXGxv T8knAnDnWkHcETDWxZH 5wRRfd2lfutS5kZMqKO 9oHKNoeQMykgOps8V6I BL5kMZjhX4xwZTiIBKa vWYijxDaab13yXEtcLB 4CFMnPKGadNMfnC5oQM XaVQBTxZ5icRMCzoWez dPmPFQrrYhzgf4OdNPz up7wmQQzR5FzeHnoxUM zIHRoYXQgdGhleSBoYX DkLNGsgsuii4GhNYRmc [id number] [facility] Work Phone: Pathology report Cancer Narrative Surgical Pathology Case: [id number] Authorizing Provider: Sherry Magaña MD Collected: 03/05/2023 1125 Ordering Location: [facility] Received: 03/05/2023 1314 Center OR Pathologist: Melisa Rodriguez MD Specimen: LIGAMENT, Median Arcuate Ligament [facility] Work Phone: Pathology report final diagnosis Narrative [id number] wNFxhbnNpXHNwbHRwZ3 UerwxvZDkkOB6mFH8me GxhdHRveWVuXGRlZmYw b4exo315uVIln4qmDVF XPYbcROOTBKk4e1igZE ZTpkqaoIa7mQrdK57dq 3O5FsakW0srSTQnCVha AIPdHWcgcTDxPRg8PSL hcGVydzEyMjQwXHBhcG IqcVI3NNKqUY4fscphA RrtOOovCBRhthD4FIIi cVUlD1XyNOJwEN0dsyr gJNE6YDnaYDYcFFM6Ll ZaQJHft1Kxhfv6GbLmi Mc0j5juGNZdVPKerRhs t7leRYQ2QBMywJFlK3z goB9mKMCcLM0tasebd5 mgETctVTsuWLVlcKZ1t oH5AICvtGQfI2ExrN1v NDQwXHBhcmRccGxhaW5 cZjFcZnMyMlxjZjFccG KgQQ2WYJvENhLGXzXKO KEVKZfEX9IYQL1WHPES MHYAT2bMPchzgIIhYQL tMrFOiWBtr3ZfbINzs1 FfTQ7rlEMrxCDwvcXbh 81csTbjAoGaB56tfuCy j3EfzWyokXuofJSumSw zd4TqADYvp6H9GKjiG0 xpbmljYWxseSBtZWRpY A2vJUMicHH0GYAylIba sFNneEPwqI9ivg2gSU1 ccGFyfQ== [facility] Work Phone: Pathology report gross observation Narrative f5isuDDzTZMtiJWUPRV 3GYYhFB6xgZcneEr3iS auMWHdsyX5yFZlCCqlk 0wkDLP4d7vrsfDAQfzy ZMNbOS0iDOpyAOTkRV5 nZmUwXGRlZmYxXHBhcG VydzEyMjQwXHBhcGVya MX1PJEdVD0mitxtUUkp WPkhPWEtgeF8KSEwfLZ fJ7YvAQYnBW0mlosiWJ T0JMZLFxhfAr5iqNCdk CANCntcZjFcZmNoYXJz XBTgAFOkbOjhT5Kcd3Q cXWc2rM5Qt1rhFhckP3 ntdzDcfKPeFk8wtHNPc jtyeGa2xS9KACLhL2Je IG6Nn7bkKYKwmCAmUJD 9UCcon9fpSJoqYGO3ET YsMPEgIHChXV4BBmDlA GsoMCFgWXBmSHh9PEn1 PKXXINFjJoR3HIK9USu 9NAv8MVtgzldkCPk3NU VoYFkctOFoOY5nhHsxK dgrcYawk2FtcCVzPAKu IFxcaWQgNTEwMDIgXFx lXbXCHgOxRqH9RcOiUT HeTsP0JQf0HQCIWuFmO iFpWRQwVla6WPMfFTv8 SBs0XLtKDsU7EgJ5FZq 4FfofSKL1UnVbKKlllK BcXHQgMiBcXHNzIDMgX EhqgUYuVE8qxFvsGWNh CJ8GXVRmKWhfVOSzcUO YFBW1JA9aEAPUVelnyO WeZROaOXbprGCsD3cdM jJcZnMyMCBBOiBSZWNl aXZlZCBmcmVzaCBsYWJ lbGVkIHdpdGggdGhlIH PmvGxlwbRnhsXsWZ1bG CIzHSBcb8EjzKVqfEVi sP7oTCVcVS3nZUGlAXW eBV8gRNHlmEC1FVYsdR dhbWVudCIsIGFyZSAyI GlycmVndWxhciBhbmQg aLQxDKNdMLHvb0A2TSX ba5F5MAHmwtQtyAHfmX StjIOqo9WzfE6jMMKlX BDebBF2CRFvNoR1AAMj WaZfnKCjxoUsO2vtOZb dvDRdVBSWfNVqb3JqG2 pwQY1gzRYmj6TylAfna mVkIGFuZCBlbnRpcmVs kGXgbUMjbSK8ZJWvxW0 eEJSmYVKqWTT9VF5wlP WtYE0POZUWRCTimeBBZ soyKPNsUXqMpo6xohBb xKKfSAB3eO7sCJLplsM fom9sKYAgcAamvBBtGL 6IDY2hvxOqm4y0gEBIg 3NwaXRhbHMgTGFrZSBX QBF7OT0cGLswYVovE8L csOQlWKFvhwTZNdV5UA XbVVD6H6gaFOJVjhAwh BDvaOLtDE7OS9wigV18 P6avkIfmE9mzqjP6GOR 0VTpdPBGzAZxto1PwEJ xlcGljWHNhMzAgDQpQa M0yJIyhEOT4ELxiSRSm LTYwMjUgIEZheDogKDQ 0CGknXlYeBYL9LGYBPb zieNraVhUmfSXaAqW2X ASrhWRrFPD3UX8kqIoy YQTyE4EtU1LpraC2OLV mulHYUyfqMQLuBZ2NFM CfOFrgGD0CqG== [facility] Work Phone: Pathology report relevant history Narrative o7xtlODtQKTpv3fvPWY mbGFuZzEwMzNcZnRuYm d2JYXqxbV2Ssa6SKNvI XppzG5pMBYsBIshG9ar fvJwkJLqQ7Udw9GjHJd 8bI9eiJkofK8xIyYgGr JwMSDNfjUzn3FzMWzzI 69fo3yoOldyIBThPZLi hLIxQLNvB7QzxQKopCn yQR7udnSiu5mqKPHtgL WlDDRUHm2HN3TbJNmQE nxpTW8sdMSnNO2= [facility] Work Phone: [facility] Work Phone: Basic metabolic 2000 panelon 03-07-2023 Anion gap [Moles/Vol] 7 mmol/L NINF - 19 mmol/L [facility] Calcium [Mass/Vol] 8.0 mg/dL Low 8.5 - 10.4 mg/dL [facility] Chloride [Moles/Vol] 111 mmol/L High 97 - 107 mmol/L [facility] CO2 [Moles/Vol] 21 mmol/L Low 24 - 31 mmol/L [facility] Creatinine [Mass/Vol] 0.70 mg/dL 0.40 - 1.60 mg/dL [facility] eGFR - PINF [facility] Comment on above: Calculations of jessica mated GFR are performed using the 2020 CKD-EPI Study Refit equation without the race variable for the IDMS-Traceable creatinine methods. https://jasn.asnjournals.org/content//ASN.08861675 88 Glucose [Mass/Vol] 100 mg/dL High 65 - 99 mg/dL [facility] Interpretation and review of laboratory results Abnormal [facility] Potassium [Moles/Vol] 3.9 mmol/L 3.4 - 5.1 mmol/L [facility] Sodium [Moles/Vol] 139 mmol/L 133 - 145 mmol/L [facility] Urea nitrogen [Mass/Vol] 4 mg/dL Low 8 - 25 mg/dL [facility] Anion gap [Moles/Vol] 7 mmol/L Normal <=19 [facility] Comment on above: Performed By: #### 5 7021-8 #### MELISA Galvan ([id number]) [facility] () [address] [place] [address] Calcium [Mass/Vol] 8.0 mg/dL Low 8.5-10.4 [facility] Comment on above: Performed By: #### 5 7021-8 #### MELISA Galvan ([id number]) [facility] () [address] [place] [address] Chloride [Moles/Vol] 111 mmol/L High 97-107 [facility] Comment on above: Performed By: #### 5 7021-8 #### MELISA Galvan ([id number]) [facility] () [address] [place] [address] CO2 [Moles/Vol] 21 mmol/L Low 24-31 [facility] Comment on above: Performed By: #### 5 7021-8 #### MELISA Galvan ([id number]) [facility] () [address] [place] [address] Creatinine [Mass/Vol] 0.70 mg/dL Normal 0.40-1.60 [facility] Comment on above: Performed By: #### 5 7021-8 #### MELISA Galvan ([id number]) [facility] () [address] [place] [address] GFR/1.73 sq M.predicted MDRD (S/P/Bld) [Vol rate/Area] mL/min/{1.73_m2} Normal >60 [facility] Comment on above: Result Comment: Calc ulations of estimated GFR are performed using the 2020 CKD-EPI Study Refit equation without the race variable for the IDMS-Traceable creatinine methods. https://jasn.asnjournals.org/content//ASN.39963318 88 Performed By: #### 5 7021-8 #### MELISA Galvan ([id number]) [facility] () [address] [place] [address] Glucose [Mass/Vol] 100 mg/dL High 65-99 [facility] Comment on above: Performed By: #### 5 7021-8 #### MELISA Galvan ([id number]) [facility] () [address] [place] [address] Potassium [Moles/Vol] 3.9 mmol/L Normal 3.4-5.1 [facility] Comment on above: Performed By: #### 5 7021-8 #### MELISA Galvan ([id number]) [facility] () [address] [place] [address] Sodium [Moles/Vol] 139 mmol/L Normal 133-145 [facility] Comment on above: Performed By: #### 5 7021-8 #### MELISA Galvan ([id number]) [facility] () [address] [place] [address] Urea nitrogen [Mass/Vol] 4 mg/dL Low 8-25 [facility] Comment on above: Performed By: #### 5 7021-8 #### MELISA Galvan ([id number]) [facility] () [address] [place] [address] CBC panel Auto (Bld)on 03-07 Erythrocyte distribution width (RBC) [Ratio] 13.2 % 11.5 - 14.5 % [facility] Hematocrit (Bld) [Volume fraction] 33.3 % Low 36.0 - 46.0 % [facility] Hemoglobin (Bld) [Mass/Vol] 11.0 g/dL Low 12.0 - 16.0 g/dL [facility] Interpretation and review of laboratory results Abnormal [facility] MCH (RBC) [Entitic mass] 31.3 pg 26.0 - 34.[address] [facility] MCHC (RBC) [Mass/Vol] 33.0 g/dL 32.0 - 36.0 g/dL [facility] MCV (RBC) [Entitic vol] 95 fL 80 - [address] [facility] Nucleated RBC/100 WBC (Bld) [Ratio] 0.0 % [facility] Platelets (Bld) [#/Vol] 155 10*3/uL [facility] RBC (Bld) [#/Vol] 3.51 10*6/uL Low [facility] WBC (Bld) [#/Vol] 5.1 10*3/uL [facility] Erythrocyte distribution width (RBC) [Ratio] 13.2 % Normal 11.5-14.5 [facility] Comment on above: Performed By: #### 5 7021-8 #### MELISA Galvan ([id number]) [facility] () [address] [place] [address] Hematocrit (Bld) [Volume fraction] 33.3 % Low 36.0-46.0 [facility] Comment on above: Performed By: #### 5 7021-8 #### MELISA Galvan ([id number]) [facility] () [address] [place] [address] Hemoglobin (Bld) [Mass/Vol] 11.0 g/dL Low 12.0-16.0 [facility] Comment on above: Performed By: #### 5 7021-8 #### MELISA Galvan ([id number]) [facility] () [address] [place] [address] MCH (RBC) [Entitic mass] 31.3 pg Normal 26.0-34.0 [facility] Comment on above: Performed By: #### 5 7021-8 #### MELISA Galvan ([id number]) [facility] () [address] [place] [address] MCHC (RBC) [Mass/Vol] 33.0 g/dL Normal 32.0-36.0 [facility] Comment on above: Performed By: #### 5 7021-8 #### MELISA Galvan ([id number]) [facility] () [address] [place] [address] MCV (RBC) [Entitic vol] 95 fL Normal 80-100 [facility] Comment on above: Performed By: #### 5 7021-8 #### MELISA Galvan ([id number]) [facility] () [address] [place] [address] Nucleated RBC/100 WBC (Bld) [Ratio] 0.0 /100 WBCs Normal 0.0-0.0 [facility] Comment on above: Performed By: #### 5 7021-8 #### MELISA Galvan ([id number]) [facility] () [address] [place] [address] Platelets (Bld) [#/Vol] 155 x10*3/uL Normal 150-450 [facility] Comment on above: Performed By: #### 5 7021-8 #### MELISA Galvan ([id number]) [facility] () [address] [place] [address] RBC (Bld) [#/Vol] 3.51 x10*6/uL Low 4.00-5.20 [facility] Comment on above: Performed By: #### 5 7021-8 #### MELISA Galvan ([id number]) COUNT INCLUDES THE [facility] () [address] [place] [address] WBC (Bld) [#/Vol] 5.1 x10*3/uL Normal 4.4-11.3 [facility] Comment on above: Performed By: #### 5 7021-8 #### MELISA Galvan ([id number]) [facility] () [address] [place] [address] Glucose Test strip manual (B ld) [Mass/Vol]on 03-07-2023 Glucose [Mass/Vol] 125 mg/dL High 74 - 99 mg/dL [facility] Interpretation and review of laboratory results Abnormal [facility] Glucose [Mass/Vol] 125 mg/dL High 74-99 [facility] Comment on above: Performed By: #### 2 4323-8 #### MELISA Galvan (95527) [facility] () [address] [place] [address] Glucose [Mass/Vol] 117 mg/dL High 74 - 99 mg/dL [facility] Interpretation and review of laboratory results Abnormal [facility] Glucose [Mass/Vol] 117 mg/dL High 74-99 [facility] Comment on above: Performed By: #### 2 4323-8 #### MELISA Galvan (59860) [facility] () [address] [place] [address] Glucose [Mass/Vol] 98 mg/dL 74 - 99 mg/dL [facility] Interpretation and review of laboratory results Normal [facility] Glucose [Mass/Vol] 98 mg/dL Normal 74-99 [facility] Comment on above: Performed By: #### 2 4323-8 #### MELISA Galvan ([id number]) [facility] () [address] [place] [address] Glucose [Mass/Vol] 98 mg/dL 74 - 99 mg/dL [facility] Interpretation and review of laboratory results Normal [facility] Glucose [Mass/Vol] 98 mg/dL Normal 74-99 [facility] Comment on above: Performed By: #### 2 4323-8 #### MELISA Galvan ([id number]) [facility] () [address] [place] [address] Glucose [Mass/Vol] 108 mg/dL High 74 - 99 mg/dL [facility] Interpretation and review of laboratory results Abnormal [facility] Glucose [Mass/Vol] 108 mg/dL High 74-99 [facility] Comment on above: Performed By: #### 5 7021-8 #### MELISA Galvan ([id number]) [facility] () [address] [place] [address] Glucose [Mass/Vol] 119 mg/dL High 74 - 99 mg/dL [facility] Interpretation and review of laboratory results Abnormal [facility] Basic metabolic 2000 panelon 03-06-2023 Anion gap [Moles/Vol] 7 mmol/L NINF - 19 mmol/L [facility] Calcium [Mass/Vol] 8.1 mg/dL Low 8.5 - 10.4 mg/dL [facility] Chloride [Moles/Vol] 109 mmol/L High 97 - 107 mmol/L [facility] CO2 [Moles/Vol] 21 mmol/L Low 24 - 31 mmol/L [facility] Creatinine [Mass/Vol] 0.70 mg/dL 0.40 - 1.60 mg/dL [facility] eGFR - PINF [facility] Comment on above: Calculations of jessica mated GFR are performed using the 2020 CKD-EPI Study Refit equation without the race variable for the IDMS-Traceable creatinine methods. https://jasn.asnjournals.org/content//ASN.33284550 88 Glucose [Mass/Vol] 149 mg/dL High 65 - 99 mg/dL [facility] Interpretation and review of laboratory results Abnormal [facility] Potassium [Moles/Vol] 3.7 mmol/L 3.4 - 5.1 mmol/L [facility] Sodium [Moles/Vol] 137 mmol/L 133 - 145 mmol/L [facility] Urea nitrogen [Mass/Vol] 5 mg/dL Low 8 - 25 mg/dL [facility] Anion gap [Moles/Vol] 7 mmol/L Normal <=19 [facility] Comment on above: Performed By: #### 5 7021-8 #### MELISA Galvan ([id number]) [facility] () [address] [place] [address] Calcium [Mass/Vol] 8.1 mg/dL Low 8.5-10.4 [facility] Comment on above: Performed By: #### 5 7021-8 #### MELISA Galvan (35441) [facility] () [address] [place] [address] Chloride [Moles/Vol] 109 mmol/L High 97-107 [facility] Comment on above: Performed By: #### 5 7021-8 #### MELISA Galvan ([id number]) [facility] () [address] [place] [address] CO2 [Moles/Vol] 21 mmol/L Low 24-31 [facility] Comment on above: Performed By: #### 5 7021-8 #### MELISA Galvan ([id number]) [facility] () [address] [place] [address] Creatinine [Mass/Vol] 0.70 mg/dL Normal 0.40-1.60 [facility] Comment on above: Performed By: #### 5 7021-8 #### MELISA Galvan (50908) [facility] () [address] [place] [address] GFR/1.73 sq M.predicted MDRD (S/P/Bld) [Vol rate/Area] mL/min/{1.73_m2} Normal >60 [facility] Comment on above: Result Comment: Calc ulations of estimated GFR are performed using the 2020 CKD-EPI Study Refit equation without the race variable for the IDMS-Traceable creatinine methods. https://jasn.asnjournals.org/content/early//ASN.71947246 88 Performed By: #### 5 7021-8 #### MELISA Galvan ([id number]) [facility] () [address] [place] [address] Glucose [Mass/Vol] 149 mg/dL High 65-99 [facility] Comment on above: Performed By: #### 5 7021-8 #### MELISA Galvan ([id number]) [facility] () [address] [place] [address] Potassium [Moles/Vol] 3.7 mmol/L Normal 3.4-5.1 [facility] Comment on above: Performed By: #### 5 7021-8 #### MELISA Galvan ([id number]) [facility] () [address] [place] [address] Sodium [Moles/Vol] 137 mmol/L Normal 133-145 [facility] Comment on above: Performed By: #### 5 7021-8 #### MELISA Galvan ([id number]) [facility] () [address] [place] [address] Urea nitrogen [Mass/Vol] 5 mg/dL Low 8-25 [facility] Comment on above: Performed By: #### 5 7021-8 #### MELISA Galvan ([id number]) [facility] () [address] [place] [address] CBC panel Auto (Bld)on 03-06 Erythrocyte distribution width (RBC) [Ratio] 12.9 % 11.5 - 14.5 % [facility] Hematocrit (Bld) [Volume fraction] 35.1 % Low 36.0 - 46.0 % [facility] Hemoglobin (Bld) [Mass/Vol] 11.8 g/dL Low 12.0 - 16.0 g/dL [facility] Interpretation and review of laboratory results Abnormal [facility] MCH (RBC) [Entitic mass] 30.8 pg 26.0 - 34.[address] [facility] MCHC (RBC) [Mass/Vol] 33.6 g/dL 32.0 - 36.0 g/dL [facility] MCV (RBC) [Entitic vol] 92 fL 80 - [address] [facility] Nucleated RBC/100 WBC (Bld) [Ratio] 0.0 % [facility] Platelets (Bld) [#/Vol] 179 10*3/uL [facility] RBC (Bld) [#/Vol] 3.83 10*6/uL Low [facility] WBC (Bld) [#/Vol] 5.5 10*3/uL [facility] Erythrocyte distribution width (RBC) [Ratio] 12.9 % Normal 11.5-14.5 [facility] Comment on above: Performed By: #### 2 4356-8 #### MELISA Galvan (72296) [facility] () [address] [place] [address] Hematocrit (Bld) [Volume fraction] 35.1 % Low 36.0-46.0 [facility] Comment on above: Performed By: #### 2 4356-8 #### MELISA Galvan (05350) [facility] () [address] [place] [address] Hemoglobin (Bld) [Mass/Vol] 11.8 g/dL Low 12.0-16.0 [facility] Comment on above: Performed By: #### 2 4356-8 #### MELISA Galvan ([id number]) [facility] () [address] [place] [address] MCH (RBC) [Entitic mass] 30.8 pg Normal 26.0-34.0 [facility] Comment on above: Performed By: #### 2 4356-8 #### MELISA Galvan (74591) [facility] () [address] [place] [address] MCHC (RBC) [Mass/Vol] 33.6 g/dL Normal 32.0-36.0 [facility] Comment on above: Performed By: #### 2 4356-8 #### MELISA Galvan ([id number]) [facility] () [address] [place] [address] MCV (RBC) [Entitic vol] 92 fL Normal 80-100 [facility] Comment on above: Performed By: #### 2 4356-8 #### MELISA Galvan (54881) [facility] () [address] [place] [address] Nucleated RBC/100 WBC (Bld) [Ratio] 0.0 /100 WBCs Normal 0.0-0.0 [facility] Comment on above: Performed By: #### 2 4356-8 #### MELISA Galvan (03529) [facility] () [address] [place] [address] Platelets (Bld) [#/Vol] 179 x10*3/uL Normal 150-450 [facility] Comment on above: Performed By: #### 2 4356-8 #### MELISA Galvan (37303) [facility] () [address] [place] [address] RBC (Bld) [#/Vol] 3.83 x10*6/uL Low 4.00-5.20 [facility] Comment on above: Performed By: #### 2 4356-8 #### MELISA Galvan (60155) [facility] () [address] [place] [address] WBC (Bld) [#/Vol] 5.5 x10*3/uL Normal 4.4-11.3 [facility] Comment on above: Performed By: #### 2 4356-8 #### MELISA Galvan (58885) [facility] () [address] [place] [address] Glucose Test strip manual (B ld) [Mass/Vol]on 03-06-2023 Glucose [Mass/Vol] 119 mg/dL High 74-99 [facility] Comment on above: Performed By: #### 5 7021-8 #### MELISA Galvan (78904) [facility] () [address] [place] [address] Glucose [Mass/Vol] 103 mg/dL High 74 - 99 mg/dL [facility] Interpretation and review of laboratory results Abnormal [facility] Glucose [Mass/Vol] 103 mg/dL High 74-99 [facility] Comment on above: Performed By: #### 5 7021-8 #### MELISA Galvan (27499) [facility] () [address] [place] [address] Glucose [Mass/Vol] 119 mg/dL High 74 - 99 mg/dL [facility] Interpretation and review of laboratory results Abnormal [facility] Glucose [Mass/Vol] 119 mg/dL High 74-99 [facility] Comment on above: Performed By: #### 5 7021-8 #### MELISA Galvan (44847) [facility] () [address] [place] [address] Glucose [Mass/Vol] 108 mg/dL High 74 - 99 mg/dL [facility] Interpretation and review of laboratory results Abnormal [facility] Glucose [Mass/Vol] 108 mg/dL High 74-99 [facility] Comment on above: Performed By: #### 5 7021-8 #### MELISA Galvan (78082) [facility] () [address] [place] [address] Glucose [Mass/Vol] 113 mg/dL High 74 - 99 mg/dL [facility] Interpretation and review of laboratory results Abnormal [facility] Glucose [Mass/Vol] 113 mg/dL High 74-99 [facility] Comment on above: Performed By: #### 5 7021-8 #### MELISA Galvan ([id number]) [facility] () [address] [place] [address] Glucose [Mass/Vol] 152 mg/dL High 74 - 99 mg/dL [facility] Interpretation and review of laboratory results Abnormal [facility] Glucose [Mass/Vol] 152 mg/dL High 74-99 [facility] Comment on above: Performed By: #### 2 4356-8 #### MELISA Galvan ([id number]) [facility] () [address] [place] [address] Magnesiumon 03-06-2023 Magnesium [Mass/Vol] 1.70 mg/dL 1.60 - 3.10 mg/dL [facility] Magnesium [Mass/Vol] 1.70 mg/dL Normal 1.60-3.10 [facility] Comment on above: Performed By: #### 2 4356-8 #### MELISA Galvan (55612) [facility] () [address] [place] [address] No Panel Informationon 03-06 Interpretation and review of laboratory results Normal [facility] Phosphateon 03-06-2023 Phosphate [Mass/Vol] 3.0 mg/dL Normal 2.5-4.5 [facility] Comment on above: Performed By: #### 2 4356-8 #### MELISA Galvan (36946) [facility] () [address] [place] [address] Phosphoruson 03-06-2023 Phosphate [Mass/Vol] 3.0 mg/dL 2.5 - 4.5 mg/dL [facility] XR CHEST 1 VIEWon 03-06-2023 XR CHEST 1 VIEW Interpreted By: Sara Zarate, STUDY: XR CHEST 1 VIEW; 03/06/2023 7:32 am INDICATION: Signs/Symptoms:post op COMPARISON: None ACCESSION NUMBER(S): [id number] ORDERING CLINICIAN: JASON FOSTER TECHNIQUE: Frontal and [...] Sara Zarate 03/06/2023 1:48 PM Dictation workstation: [id number] Normal [facility] XR Chest Single viewon 03-06 Appliance positioning as noted above. No consolidation. Signed by: Sara Zarate 03/06/2023 1:48 PM Dictation workstation: [id number] Interpreted By: Sara Zarate, STUDY: XR CHEST 1 VIEW; 03/06/2023 7:32 am INDICATION: Signs/Symptoms:post op COMPARISON: None ACCESSION NUMBER(S): [id number] ORDERING CLINICIAN: JASON FOSTER TECHNIQUE: Frontal and [...] INDICATION: Signs/Symptoms:post op COMPARISON: None ACCESSION NUMBER(S): [id number] ORDERING CLINICIAN: JASON FOSTER TECHNIQUE: Frontal and [...] Sara Zarate 03/06/2023 1:48 PM Dictation workstation: [id number] [facility] Work Phone: Radiology Study observation (narrative) [facility] Work Phone: XR Chest Single viewOrdered By: Sara Zarate on 03-06-[address] [facility] Work Phone: Basic metabolic 2000 panelon 03-05-2023 Anion gap [Moles/Vol] 13 mmol/L NINF - 19 mmol/L [facility] Calcium [Mass/Vol] 8.0 mg/dL Low 8.5 - 10.4 mg/dL [facility] Chloride [Moles/Vol] 107 mmol/L 97 - 107 mmol/L [facility] CO2 [Moles/Vol] 18 mmol/L Low 24 - 31 mmol/L [facility] Creatinine [Mass/Vol] 0.70 mg/dL 0.40 - 1.60 mg/dL [facility] eGFR - PINF [facility] Comment on above: Calculations of jessica mated GFR are performed using the 2020 CKD-EPI Study Refit equation without the race variable for the IDMS-Traceable creatinine methods. https://jasn.asnjournals.org/content//ASN.35963656 88 Glucose [Mass/Vol] 107 mg/dL High 65 - 99 mg/dL [facility] Interpretation and review of laboratory results Abnormal [facility] Potassium [Moles/Vol] 3.6 mmol/L 3.4 - 5.1 mmol/L [facility] Sodium [Moles/Vol] 138 mmol/L 133 - 145 mmol/L [facility] Urea nitrogen [Mass/Vol] 10 mg/dL 8 - 25 mg/dL [facility] Anion gap [Moles/Vol] 13 mmol/L Normal <=19 [facility] Comment on above: Performed By: #### 2 4356-8 #### MELISA Galvan ([id number]) [facility] () [address] [place] [address] Calcium [Mass/Vol] 8.0 mg/dL Low 8.5-10.4 [facility] Comment on above: Performed By: #### 2 4356-8 #### MELISA Galvan ([id number]) [facility] () [address] [place] [address] Chloride [Moles/Vol] 107 mmol/L Normal 97-107 [facility] Comment on above: Performed By: #### 2 4356-8 #### MELISA Galvan ([id number]) [facility] () [address] [place] [address] CO2 [Moles/Vol] 18 mmol/L Low 24-31 [facility] Comment on above: Performed By: #### 2 4356-8 #### MELISA Galvan ([id number]) [facility] () [address] [place] [address] Creatinine [Mass/Vol] 0.70 mg/dL Normal 0.40-1.60 [facility] Comment on above: Performed By: #### 2 4356-8 #### MELISA Galvan ([id number]) [facility] () [address] [place] [address] GFR/1.73 sq M.predicted MDRD (S/P/Bld) [Vol rate/Area] mL/min/{1.73_m2} Normal >60 [facility] Comment on above: Result Comment: Calc ulations of estimated GFR are performed using the 2020 CKD-EPI Study Refit equation without the race variable for the IDMS-Traceable creatinine methods. https://jasn.asnjournals.org/content//ASN.76156069 88 Performed By: #### 2 4356-8 #### MELISA Galvan ([id number]) [facility] () [address] [place] [address] Glucose [Mass/Vol] 107 mg/dL High 65-99 [facility] Comment on above: Performed By: #### 2 4356-8 #### MELISA Galvan ([id number]) [facility] () [address] [place] [address] Potassium [Moles/Vol] 3.6 mmol/L Normal 3.4-5.1 [facility] Comment on above: Performed By: #### 2 4356-8 #### MELISA Galvan ([id number]) [facility] () [address] [place] [address] Sodium [Moles/Vol] 138 mmol/L Normal 133-145 [facility] Comment on above: Performed By: #### 2 4356-8 #### MELISA Galvan ([id number]) [facility] () [address] [place] [address] Urea nitrogen [Mass/Vol] 10 mg/dL Normal 8-25 [facility] Comment on above: Performed By: #### 2 4356-8 #### MELISA Galvan ([id number]) [facility] () [address] [place] [address] CBC panel Auto (Bld)on 03-05 Erythrocyte distribution width (RBC) [Ratio] 12.6 % 11.5 - 14.5 % [facility] Hematocrit (Bld) [Volume fraction] 34.8 % Low 36.0 - 46.0 % [facility] Hemoglobin (Bld) [Mass/Vol] 11.9 g/dL Low 12.0 - 16.0 g/dL [facility] Interpretation and review of laboratory results Abnormal [facility] MCH (RBC) [Entitic mass] 31.2 pg 26.0 - 34.[address] [facility] MCHC (RBC) [Mass/Vol] 34.2 g/dL 32.0 - 36.0 g/dL [facility] MCV (RBC) [Entitic vol] 91 fL 80 - [address] [facility] Nucleated RBC/100 WBC (Bld) [Ratio] 0.0 % [facility] Platelets (Bld) [#/Vol] 182 10*3/uL [facility] RBC (Bld) [#/Vol] 3.82 10*6/uL Low [facility] WBC (Bld) [#/Vol] 8.4 10*3/uL [facility] Erythrocyte distribution width (RBC) [Ratio] 12.6 % Normal 11.5-14.5 [facility] Comment on above: Performed By: #### 5 8410-2 #### MELISA Galvan ([id number]) [facility] () [address] [place] [address] Hematocrit (Bld) [Volume fraction] 34.8 % Low 36.0-46.0 [facility] Comment on above: Performed By: #### 5 8410-2 #### MELISA Galvan ([id number]) [facility] () [address] [place] [address] Hemoglobin (Bld) [Mass/Vol] 11.9 g/dL Low 12.0-16.0 [facility] Comment on above: Performed By: #### 5 8410-2 #### MELISA Galvan (75903) [facility] () [address] [place] [address] MCH (RBC) [Entitic mass] 31.2 pg Normal 26.0-34.0 [facility] Comment on above: Performed By: #### 5 8410-2 #### MELISA Galvan (47749) [facility] () [address] [place] [address] MCHC (RBC) [Mass/Vol] 34.2 g/dL Normal 32.0-36.0 [facility] Comment on above: Performed By: #### 5 8410-2 #### MELISA Galvan ([id number]) [facility] () [address] [place] [address] MCV (RBC) [Entitic vol] 91 fL Normal 80-100 [facility] Comment on above: Performed By: #### 5 8410-2 #### MELISA Galvan ([id number]) [facility] () [address] [place] [address] Nucleated RBC/100 WBC (Bld) [Ratio] 0.0 /100 WBCs Normal 0.0-0.0 [facility] Comment on above: Performed By: #### 5 8410-2 #### MELISA Galvan (21430) [facility] () [address] [place] [address] Platelets (Bld) [#/Vol] 182 x10*3/uL Normal 150-450 [facility] Comment on above: Performed By: #### 5 8410-2 #### MELISA Galvan (06388) [facility] () [address] [place] [address] RBC (Bld) [#/Vol] 3.82 x10*6/uL Low 4.00-5.20 [facility] Comment on above: Performed By: #### 5 8410-2 #### MELISA Galvan ([id number]) [facility] () [address] [place] [address] WBC (Bld) [#/Vol] 8.4 x10*3/uL Normal 4.4-11.3 [facility] Comment on above: Performed By: #### 5 8410-2 #### MELISA Galvan ([id number]) [facility] () [address] [place] [address] Glucose Test strip manual (B ld) [Mass/Vol]on 03-05-2023 Glucose [Mass/Vol] 176 mg/dL High 74 - 99 mg/dL [facility] Interpretation and review of laboratory results Abnormal [facility] Glucose [Mass/Vol] 176 mg/dL High 74-99 [facility] Comment on above: Performed By: #### 2 4356-8 #### MELISA Galvan ([id number]) [facility] () [address] [place] [address] Glucose [Mass/Vol] 177 mg/dL High 74 - 99 mg/dL [facility] Interpretation and review of laboratory results Abnormal [facility] Glucose [Mass/Vol] 177 mg/dL High 74-99 [facility] Comment on above: Performed By: #### 2 4356-8 #### MELISA Galvan ([id number]) [facility] () [address] [place] [address] Glucose [Mass/Vol] 111 mg/dL High 74 - 99 mg/dL [facility] Interpretation and review of laboratory results Abnormal [facility] Glucose [Mass/Vol] 111 mg/dL High 74-99 [facility] Comment on above: Performed By: #### 2 4356-8 #### MELISA Galvan (97508) [facility] () [address] [place] [address] Magnesiumon 03-05-2023 Magnesium [Mass/Vol] 1.70 mg/dL 1.60 - 3.10 mg/dL [facility] Magnesium [Mass/Vol] 1.70 mg/dL Normal 1.60-3.10 [facility] Comment on above: Performed By: #### 2 4356-8 #### MELISA Galvan ([id number]) [facility] () [address] [place] [address] No Panel Informationon 03-05 Interpretation and review of laboratory results Normal [facility] Phosphateon 03-05-2023 Phosphate [Mass/Vol] 4.3 mg/dL Normal 2.5-4.5 [facility] Comment on above: Performed By: #### 2 4356-8 #### MELISA Galvan (99586) [facility] () [address] [place] [address] Phosphoruson 03-05-2023 Phosphate [Mass/Vol] 4.3 mg/dL 2.5 - 4.5 mg/dL [facility] Surgical pathology studyon 0 03-05-2023 Surgical pathology study Pathology report.total SEE COMMENT Surgical Pathology Case: [id number] Authorizing Provider: Sherry Magaña MD Collected: 03/05/2023 1125 Ordering Location: [facility] Received: 03/05/2023 1314 Center OR Pathologist: Melisa [...] 1 cassette. MCH Gross dissection performed at: [facility] [address] [place] [address] 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] VERAB/VERIFY ABORHon 024 ABO group Nom (Bld) O [facility] Comment on above: Performed By: #### V ERAB #### MELISA Galvan ([id number]) [facility] ([employer]) [address] [place] [address] D Ag Ql (Bld) Positive [facility] Comment on above: Performed By: #### V ERAB #### MELISA Galvan ([id number]) [facility] ([employer]) [address] [place] [address] XR CHEST 1 VIEWon 03-05-2023 XR CHEST 1 VIEW Interpreted By: Baldomero Hendrickson, STUDY: XR CHEST 1 VIEW; 03/05/2023 3:11 pm INDICATION: CLINICAL INFORMATION: Signs/Symptoms:NG tube placement confirmation. COMPARISON: 03/05/2019 at 745 hours ACCESSION NUMBER(S): [id number] ORDERING CLINICIAN: DESMOND TIRADO TECHNIQUE: Portable chest [...] Baldomero Hendrickson 03/05/2023 3:31 PM Dictation workstation: [id number] [facility] XR CHEST 1 VIEW Interpreted By: Nya Ahmadi, STUDY: XR CHEST 1 VIEW 03/05/2023 7:51 am INDICATION: Signs/Symptoms:conf irm line placement COMPARISON: None available. ACCESSION NUMBER(S): [id number] ORDERING CLINICIAN: SERENA GEORGE TECHNIQUE: AP erect view of the chest FINDINGS: Right arm PICC line terminates in the SVC. There is no pneumothorax. The heart, mediastinum, and lungs are normally visualized. IMPRESSION: Right arm PICC line terminating in SVC without pneumothorax. No acute cardiopulmonary disease. Signed by: Nya Ahmadi 03/05/2023 7:54 AM Dictation workstation: [id number] [facility] XR Chest Single viewon 03-05 1. Status post NG tube insertion with the tube extending into the left upper quadrant. 2. Stable appearance of the PICC line. 3. No infiltrates are identified. MACRO: none Signed by: Baldomero Hendrickson 03/05/2023 3:31 PM Dictation workstation: [id number] [facility] Interpreted By: Baldomero Hendrickson, STUDY: XR CHEST 1 VIEW; 03/05/2023 3:11 pm INDICATION: CLINICAL INFORMATION: Signs/Symptoms:NG tube placement confirmation. COMPARISON: 03/05/2019 at 745 hours ACCESSION NUMBER(S): [id number] ORDERING CLINICIAN: DESMOND TIRADO TECHNIQUE: Portable chest [...] COMPARISON: 03/05/2019 at 745 hours ACCESSION NUMBER(S): [id number] ORDERING CLINICIAN: DESMOND TIRADO TECHNIQUE: Portable chest [...] Baldomero Hendrickson 03/05/2023 3:31 PM Dictation workstation: [id number] [facility] Work Phone: Radiology Study observation (narrative) [facility] Work Phone: Right arm PICC line terminating in SVC without pneumothorax. No acute cardiopulmonary disease. Signed by: Nya Ahmadi 03/05/2023 7:54 AM Dictation workstation: [id number] [facility] Interpreted By: Nya Ahmadi, STUDY: XR CHEST 1 VIEW 03/05/2023 7:51 am INDICATION: Signs/Symptoms:conf irm line placement COMPARISON: None available. ACCESSION NUMBER(S): [id number] ORDERING CLINICIAN: SERENA GEORGE TECHNIQUE: AP erect view of the chest FINDINGS: Right arm PICC line terminates in the SVC. There is no pneumothorax. The heart, mediastinum, and lungs are normally visualized. [facility] Nya Ahmadi MD - 03/05/2023 Interpreted By: Nya Ahmadi, STUDY: XR CHEST 1 VIEW 03/05/2023 7:51 am INDICATION: Signs/Symptoms:conf irm line placement COMPARISON: None available. ACCESSION NUMBER(S): [id number] ORDERING CLINICIAN: SERENA GEORGE TECHNIQUE: AP erect view of the chest FINDINGS: Right arm PICC line terminates in the SVC. There is no pneumothorax. The heart, mediastinum, and lungs are normally visualized. IMPRESSION: Right arm PICC line terminating in SVC without pneumothorax. No acute cardiopulmonary disease. Signed by: Nya Ahmadi 03/05/2023 7:54 AM Dictation workstation: [id number] [facility] Work Phone: Radiology Study observation (narrative) [facility] Work Phone: XR Chest Single viewOrdered By: Baldomero Henrdickson on 03-05-[address] [facility] Work Phone: XR Chest Single viewOrdered By: Nya Ahmadi on 03-05-[address] [facility] Work Phone: Basic metabolic 2000 panelon 03-02-2023 Anion gap [Moles/Vol] 14 mmol/L Normal <=19 [facility] Comment on above: Performed By: #### 2 4321-2 #### MELISA Galvan ([id number]) [facility] () [address] [place] [address] Calcium [Mass/Vol] 9.0 mg/dL Normal 8.5-10.4 [facility] Comment on above: Performed By: #### 2 4321-2 #### MELISA Galvan ([id number]) [facility] () [address] [place] [address] Chloride [Moles/Vol] 107 mmol/L Normal 97-107 [facility] Comment on above: Performed By: #### 2 4321-2 #### MELISA Galvan (63538) [facility] () [address] [place] [address] CO2 [Moles/Vol] 21 mmol/L Low 24-31 [facility] Comment on above: Performed By: #### 2 4321-2 #### MELISA Galvan (31583) [facility] () [address] [place] [address] Creatinine [Mass/Vol] 0.80 mg/dL Normal 0.40-1.60 [facility] Comment on above: Performed By: #### 2 4321-2 #### MELISA Galvan (62234) [facility] () [address] [place] [address] GFR/1.73 sq M.predicted MDRD (S/P/Bld) [Vol rate/Area] mL/min/{1.73_m2} Normal >60 [facility] Comment on above: Result Comment: Calc ulations of estimated GFR are performed using the 2020 CKD-EPI Study Refit equation without the race variable for the IDMS-Traceable creatinine methods. https://jasn.asnjournals.org/content//ASN.60760872 88 Performed By: #### 2 4321-2 #### MELISA Galvan (27741) [facility] () [address] [place] [address] Glucose [Mass/Vol] 68 mg/dL Normal 65-99 [facility] Comment on above: Performed By: #### 2 4321-2 #### MELISA Galvan (97505) [facility] () [address] [place] [address] Potassium [Moles/Vol] 4.0 mmol/L Normal 3.4-5.1 [facility] Comment on above: Performed By: #### 2 4321-2 #### MELISA Galvan (25831) [facility] () [address] [facility] [place] [address] Sodium [Moles/Vol] 142 mmol/L Normal 133-145 [facility] Comment on above: Performed By: #### 2 4321-2 #### MELISA Galvan (48016) [facility] () [address] [facility] [place] [address] Urea nitrogen [Mass/Vol] 8 mg/dL Normal 8-25 [facility] Comment on above: Performed By: #### 2 4321-2 #### MELISA Galvan ([id number]) [facility] () [address] [place] [address] Blood type and Indirect anti body screen panel (Bld)on 03-02-2023 ABO group Nom (Bld) O Normal [facility] Comment on above: Performed By: #### 3 4532-2 #### MELISA Galvan ([id number]) [facility] ([facility]) [address] [place] [address] [place] Blood group antibody screen Ql Negative [facility] Comment on above: Performed By: #### 3 4532-2 #### MELISA Galvan ([id number]) [facility] ([facility]) [address] [place] [address] [place] D Ag Ql (Bld) Positive [facility] Comment on above: Performed By: #### 3 4532-2 #### MELISA Galvan ([id number]) [facility] ([facility]) [address] [place] [address] [place] Staphylococcus aureus.methic illin resistant isolateon 03-02-2023 MRSA isol Org specific cx Ql (Nose) Test: Staphylococcus aureus/MRSA colonization, Culture Specimen Source: Anterior Nares Specimen Type: Swab Specimen Date: 03/02/2023 3:17 PM Result Date: 03/04/2023 7:55 AM Result Status: Final result Abnormal: No Resulting Lab: [facility] [address] [place] [address] CULTURE No Staphylococcus aureus isolated [facility] Comment on above: Performed By: #### 5 2969-3 #### ALON Johnson ([id number]) [facility] ([facility]) [address] [place] [address] Alanine aminotransferase [En zymatic activity/volume] in Serum or PlasmaOrdered By: Roseline Mejia on 02-13-2023 ALT [Catalytic activity/Vol] 11 U/L Normal [facility] Comment on above: Performed By: #### A DDONUAPLUS, [facility], CUU #### [facility] [address] [place] [address] [place] Albumin [Mass/volume] in Ser um or Plasma by Bromocresol green (BCG) dye binding methoOrdered By: Roseline Mejia on 02-13-2023 Albumin BCG dye [Mass/Vol] 4.0 g/dL 3.5-5.7 [facility] Alkaline phosphatase [Enzyma tic activity/volume] in Serum or PlasmaOrdered By: Roseline Mejia on 02-13-2023 ALP [Catalytic activity/Vol] 55 U/L Normal 34-104 [facility] Comment on above: Performed By: #### A JOSESITO RAY, CUU #### [address] Aspartate aminotransferase [ Enzymatic activity/volume] in Serum or PlasmaOrdered By: Roseline Mejia on 02-13-2023 AST [Catalytic activity/Vol] 20 U/L Normal 13-39 [facility] Comment on above: Performed By: #### A JOSESITO RAY, CUU #### [address] Automated basophil %Ordered By: Roseline Mejia on 02-13-2023 Basophils/100 WBC (Bld) 1.2 % Normal . [facility] Comment on above: Performed By: #### A JOSESITO RAY, CUU #### [address] Automated basophil countOrde red By: Roseline Mejia on 02-13-2023 Basophils (Bld) [#/Vol] 0.1 10*3/uL Normal 0.0-0.2 [facility] Comment on above: Result Comment: PERF ORMED BY: [place] [address] PATHOLOGIST MOLDER OPERATOR BAUTISTA BAKER M.D. Performed By: #### A CORY ELIS, CUU #### [address] Automated blood monocyte cou ntOrdered By: Roseline Mejia on 02-13-2023 Monocytes (Bld) [#/Vol] 0.3 10*3/uL Normal 0.0-0.8 [facility] Comment on above: Performed By: #### A JOSESITO RAY, CUU #### [address] Automated eosinophil %Ordere d By: Roseline Meija on 02-13-2023 Eosinophils/100 WBC (Bld) 1.7 % Normal . [facility] Comment on above: Performed By: #### A ALIYAH RAYG, CUU #### [address] Automated eosinophil countOr dered By: Roseline Mejia on 02-13-2023 Eosinophils (Bld) [#/Vol] 0.1 10*3/uL Normal 0.0-0.45 [facility] Comment on above: Performed By: #### A BRITTANIE RAYCG, CUU #### [address] Automated monocyte %Ordered By: Roseline Mejia on 02-13-2023 Monocytes/100 WBC (Bld) 7.3 % Normal . [facility] Comment on above: Performed By: #### A JOSESITO RAY, CUU #### [address] Automated neutrophil %Ordere d By: Roseline Mejia on 02-13-2023 Neutrophils/100 WBC (Bld) 49.0 % Normal . [facility] Comment on above: Performed By: #### A JOSESITO RAY, CUU #### [address] Automated urine color determ inationOrdered By: Roseline Mejia on 02-13-2023 Color (U) Yellow Normal Yellow [facility] Comment on above: Order Comment: Name Collection Type:: Clean-Voided Midstream Performed By: #### A BRITTANIE RAYCG, CUU #### [address] Basic Metabolic Panelon 01-17 Creatinine Clr Calc Pharmacy 119.02 Normal [facility] Comment on above: Performed By: #### A MALLORIEUAJESSICA, BRITTANIECG, CUU #### [address] GFR/1.73 sq M.predicted MDRD (S/P/Bld) [Vol rate/Area] mL/min/{1.73_m2} Normal [facility] Comment on above: Performed By: #### A CORY, [facility] #### [address] Bilirubin Test strip Ql (U)O rdered By: Roseline Mejia on 02-13-2023 Bilirubin Ql (U) Negative Negative [facility] Bilirubin.direct [Mass/volum e] in Serum or PlasmaOrdered By: Roseline Mejia on 02-13-2023 Bilirubin.direct [Mass/Vol] 0.10 mg/dL 0.03-0.18 [facility] Bilirubin.total [Mass/volume ] in Serum or PlasmaOrdered By: Roseline Mejia on 02-13-2023 Bilirubin [Mass/Vol] 0.5 mg/dL Normal 0.3-1.0 [facility] Comment on above: Performed By: #### A CORY, [facility] #### [address] abdomen pelvis w conon CT abdomen pelvis w con [facility] [place] [address] CT Scan Report Signed Patient: Abbey Garcia MR#: [id number] : 1990 Acct:[id number] Age/Sex: 32 / F ADM Date: 02/13/23 Loc: ER Room: Type: [facility] ER Attending Dr: Copies to: DO [...] Jason Palomo M.D.02/13/2023 3:42 PM Dictation Location: [place] [address] Transcribed By: [facility] 02/13/23 1542 Dictated By: Jason Palomo DO 02/13/23 1537 Signed By: 02/13/23 1542 Normal [facility] Calcium [Mass/volume] in Ser um or PlasmaOrdered By: Roseline Mejia on 02-13-2023 Calcium [Mass/Vol] 8.8 mg/dL Normal 8.6-10.3 [facility] Comment on above: Performed By: #### A CORY ELIS, CUU #### [facility] [address] [place] [address] [place] Carbon dioxide, total [Moles /volume] in Serum or PlasmaOrdered By: Roseline Mejia on 02-13-2023 CO2 [Moles/Vol] 21.2 mmol/L Normal 21.0-31.[address] [facility] Comment on above: Performed By: #### A JOSESITO RAY, CUU #### [facility] [address] [place] [address] [place] Chloride [Moles/volume] in S elder or PlasmaOrdered By: Roseline Mejia on 02-13-2023 Chloride [Moles/Vol] 109 mmol/L High 98-107 [facility] Comment on above: Performed By: #### A MALLORIEUABRITTANIE LOPEZCG, CUU #### [address] Complete Blood Count Auto Di ffon 02-13-2023 Mean Corpuscular HGB Conc 34.9 g/dL Normal 32.0-35.0 [facility] Comment on above: Performed By: #### A MALLORIEUAJESSICA, BRITTANIECG, CUU #### [address] Monocytes/100 WBC (Bld) 17.39 % Normal 0.00-20.00 [facility] Comment on above: Performed By: #### A NISHONUAJESSICA, BRITTANIECG, CUU #### [address] NRBC% 0.2 /100{WBC} Normal 0-0.5 [facility] Comment on above: Performed By: #### A MALLOIREUAJESSICA, BRITTANIECG, CUU #### [address] Creatinine [Mass/volume] in Serum or PlasmaOrdered By: Roseline Mejia on 02-13-2023 Creatinine [Mass/Vol] 0.73 mg/dL Normal 0.60-1.20 [facility] Comment on above: Performed By: #### A BRITTANIE RAYCG, CUU #### [address] Erythrocyte distribution wid th [Ratio] by Automated countOrdered By: Roseline Mejia on 02-13-2023 Erythrocyte distribution width (RBC) [Ratio] 13.0 % Normal 11.9-15.3 [facility] Comment on above: Performed By: #### A NISHONDAVON, UHCG, CUU #### [address] Erythrocytes [#/volume] in B lood by Automated countOrdered By: Roseline Mejia on 02-13-2023 RBC (Bld) [#/Vol] 4.07 10*6/uL Normal 3.60-5.00 [facility] Comment on above: Performed By: #### A JOSESITO RAY, CUU #### [facility] [address] [place] [address] [place] Glucose [Mass/volume] in Ser um or PlasmaOrdered By: Roseline Mejia on 02-13-2023 Glucose [Mass/Vol] 85 mg/dL Normal 70-100 [facility] Comment on above: ADA recommended refe rence rangeRandom Glucose Reference Range is dependent on time and content of last meal. Glucose of more than 200 mg/dL in a nonstressed, ambulatory subject supports the diagnosis of Diabetes Mellitus. Result Comment: [place] om Glucose Reference Range is dependent on time and content of last meal. Glucose of more than 200 mg/dL in a nonstressed, ambulatory subject supports the diagnosis of Diabetes Mellitus. ADA recommended reference range Performed By: #### A JOSESITO RAY, CUU #### [facility] [address] HCG ( test) IA.rapi d Ql (U)Ordered By: Roseline Mejia on 02-13-2023 HCG ( test) Ql (U) Negative [facility] HCG,Urineon 02-13-2023 Beta HCG ( test) Ql (U) Negative Normal [facility] Comment on above: Order Comment: Name Collection Type:: Clean-Voided Midstream Result Comment: PERF ORMED BY: [place] [address] PATHOLOGIST MOLDER OPERATOR BAUTISTA BAKER M.D. Performed By: #### A JOSESITO RAY, CUU #### [address] Hematocrit [Volume Fraction] of Blood by Automated countOrdered By: Roseline Mejia on 02-13-2023 Hematocrit (Bld) [Volume fraction] 36.3 % Normal 34.0-46.4 [facility] Comment on above: Performed By: #### A DDONUAPLUS, UHCG, CUU #### [facility] [address] Hemoglobin [Mass/volume] in BloodOrdered By: Roseline Mejia on 02-13-2023 Hemoglobin (Bld) [Mass/Vol] 12.7 g/dL Normal 11.8-15.4 [facility] Comment on above: Performed By: #### A DDONUAPLUS, UHCG, CUU #### [facility] [address] Hepatic Panelon 02-13-2023 Albumin [Mass/Vol] 4.0 g/dL Normal 3.5-5.7 [facility] Comment on above: Performed By: #### A DDONUAPLUS, UHCG, CUU #### [address] Bilirubin,Indirect 0.4 mg/dL Normal [facility] Comment on above: Performed By: #### A DDONUAPLUS, UHCG, CUU #### [facility] [address] Bilirubin.indirect [Mass/Vol] 0.10 mg/dL Normal 0.03-0.18 [facility] Comment on above: Performed By: #### A DDONUAPLUS, UHCG, CUU #### [address] Ketones Auto test strip (U) [Mass/Vol]Ordered By: Roseline Mejia on 02-13-2023 Ketones (U) [Mass/Vol] Trace Negative [facility] Leukocytes [#/volume] correc darvin for nucleated erythrocytes in Blood by Automated counOrdered By: Roseline Mejia on 02-13-2023 WBC corrected for nucl RBC Auto (Bld) [#/Vol] 4.2 10*3/uL 3.8-11.6 [facility] Leukocytes [#/volume] in Blo od by Automated countOrdered By: Roseline Mejia on 02-13-2023 WBC (Bld) [#/Vol] 4.2 10*3/uL Normal 3.8-11.6 [facility] Comment on above: Performed By: #### A JOSESITO RAY, CUU #### [facility] [address] Lipase [Enzymatic activity/v olume] in Serum or PlasmaOrdered By: Roseline Mejia on 02-13-2023 Lipase [Catalytic activity/Vol] 42.0 U/L Normal 11.0-82.0 [facility] Comment on above: Result Comment: PERF ORMED BY: [place] [address] PATHOLOGIST MOLDER OPERATOR BAUTISTA BAKER M.D. Performed By: #### A JOSESITO RAY, CUU #### [place] [address] [place] Lymphocytes [#/volume] in Bl ood by Automated countOrdered By: Roseline Mejia on 02-13-2023 Lymphocytes (Bld) [#/Vol] 1.7 10*3/uL Normal 1.00-4.8 [facility] Comment on above: Performed By: #### A JOSESITO RAY, CUU #### [place] [address] [place] Lymphocytes/100 leukocytes i n Blood by Automated countOrdered By: Roseline Mejia on 02-13-2023 Lymphocytes/100 WBC (Bld) 40.8 % Normal . [facility] Comment on above: Performed By: #### A JOSESITO RAY, CUU #### [facility] [address] [place] [address] [place] MCH [Entitic mass] by Automa darvin countOrdered By: Roseline Mejia on 02-13-2023 MCH (RBC) [Entitic mass] 31.1 pg Normal 24.7-34.3 [facility] Comment on above: Performed By: #### A JOSESITO RAY, CUU #### [facility] [address] MCHC Auto (RBC) [Mass/Vol]Or dered By: Roseline Mejia on 02-13-2023 MCHC (RBC) [Mass/Vol] 34.9 g/dL 32.0-35.0 [facility] MCV [Entitic volume] by Auto mated countOrdered By: Roseline Mejia on 02-13-2023 MCV (RBC) [Entitic vol] 89.2 fL Normal 80-100 [facility] Comment on above: Performed By: #### A MALLORIEUAJESSICA, [facility], CUU #### [facility] [address] Monocyte distribution width [Entitic volume] in Blood by AutomatedOrdered By: Roseline Mejia on 02-13-2023 Monocyte distribution width Auto (Bld) [Entitic vol] 17.39 % 0.00-20.00 [facility] Neutrophils [#/volume] in Bl ood by Automated countOrdered By: Roseline Mejia on 02-13-2023 Neutrophils (Bld) [#/Vol] 2.0 10*3/uL Normal 1.8-7.7 [facility] Comment on above: Performed By: #### A CORY, [facility], CUU #### [facility] [address] [place] [address] Nitrite Test strip Ql (U)Ord ered By: Roseline Mejia on 02-13-2023 Nitrite Ql (U) Negative Negative [facility] No Panel InformationOrdered By: Roseline Mejia on 02-13-2023 Estimated GFR (CKD-EPI) > 60.0 mL/Min [facility] Creatinine Clearance (Chem 119.02 [facility] Nucleated erythrocytes [Pres ence] in Blood by Automated countOrdered By: Roseline Mejia on 02-13-2023 Nucleated RBC Auto Ql (Bld) 0.2 /100{WBC} 0-0.5 [facility] Platelet mean volume [Entiti c volume] in Blood by Automated countOrdered By: Roseline Mejia on 02-13-2023 Platelet mean volume (Bld) [Entitic vol] 8.8 fL Normal 6.3-10.7 [facility] Comment on above: Performed By: #### A JOSESITO RAY, CUU #### [address] Platelets [#/volume] in Bloo d by Automated countOrdered By: Roseline Mejia on 02-13-2023 Platelets (Bld) [#/Vol] 288 10*3/uL Normal 150-450 [facility] Comment on above: Performed By: #### A JOSESITO RAY, CUU #### [address] Potassium [Moles/volume] in Serum or PlasmaOrdered By: Roseline Mejia on 02-13-2023 Potassium [Moles/Vol] 3.7 mmol/L Normal 3.5-5.1 [facility] Comment on above: Performed By: #### A JOSESITO RAY, CUU #### [address] Protein Auto test strip (U) [Mass/Vol]Ordered By: Roseline Mejia on 02-13-2023 Protein (U) [Mass/Vol] Negative Negative [facility] Protein [Mass/volume] in Ser um or PlasmaOrdered By: Roseline Mejia on 02-13-2023 Protein [Mass/Vol] 6.9 g/dL Normal 6.4-8.9 [facility] Comment on above: Performed By: #### A JOSESITO RAY, CUU #### [address] Serum globulin measurement b y calculation (mass/volume)Ordered By: Roseline Mejia on 02-13-2023 Globulin (S) [Mass/Vol] 2.9 g/dL Normal [facility] Comment on above: Performed By: #### A JOSESITO RAY, CUU #### [facility] [address] [place] [address] Serum or plasma albumin/glob ulin mass ratioOrdered By: Roseline Mejia on 02-13-2023 Albumin/Globulin [Mass ratio] 1.4 {ratio} Normal [facility] Comment on above: Performed By: #### A CORY, [place]roy[place], CUU #### [address] Serum or plasma anion gap de terminationOrdered By: Roseline Mejia on 02-13-2023 Anion gap [Moles/Vol] 10.5 mmol/L Normal 6.0-15.0 [facility] Comment on above: Performed By: #### A CORY ELIS, CUU #### [address] Serum or plasma non-glucuron idated bilirubin measurement (mass/volume)Ordered By: Roseline Mejia on 02-13-2023 Bilirubin.indirect [Mass/Vol] 0.4 mg/dL [facility] Sodium [Moles/volume] in Ser um or PlasmaOrdered By: Roseline Mejia on 02-13-2023 Sodium [Moles/Vol] 137 mmol/L Normal 136-145 [facility] Comment on above: Performed By: #### A ALIYAH RAYG, CUU #### [facility] [address] [place] [address] Specific gravity Auto test s trip (U) [Rel density]Ordered By: Roseline Mejia on 02-13-2023 Specific gravity (U) [Rel density] 1.017 1.001-1.030 [facility] Urea nitrogen [Mass/volume] in Serum or PlasmaOrdered By: Roseline Mejia on 02-13-2023 Urea nitrogen [Mass/Vol] 10 mg/dL Normal 7-25 [facility] Comment on above: Performed By: #### A CORY ElroyG, CUU #### [address] Urinalysison 02-13-2023 Appearance (U) Clear Normal Clear [facility] Comment on above: Order Comment: Name Collection Type:: Clean-Voided Midstream Performed By: #### A DDONUAPLUS, UHCG, CUU #### [address] Bilirubin,Urine Negative Normal Negative [facility] Comment on above: Order Comment: Name Collection Type:: Clean-Voided Midstream Performed By: #### A DDONUAPLUS, UHCG, CUU #### [address] Glucose Ql (U) Normal Normal Normal [facility] Comment on above: Order Comment: Name Collection Type:: Clean-Voided Midstream Performed By: #### A DDONUAPLUS, UHCG, CUU #### [address] Ketones Ql (U) Trace High Negative [facility] Comment on above: Order Comment: Name Collection Type:: Clean-Voided Midstream Performed By: #### A DDONUAPLUS, UHCG, CUU #### [address] Leukocyte esterase Test strip Ql (U) Negative Normal Negative [facility] Comment on above: Order Comment: Name Collection Type:: Clean-Voided Midstream Performed By: #### A DDONUAPLUS, UHCG, CUU #### [place] [address] [place] Nitrite,Urine Negative Normal Negative [facility] Comment on above: Order Comment: Name Collection Type:: Clean-Voided Midstream Performed By: #### A DDONUAPLUS, UHCG, CUU #### [place] [address] [place] Occult Blood,Urine Negative Normal Negative [facility] Comment on above: Order Comment: Name Collection Type:: Clean-Voided Midstream Performed By: #### A DDONUAPLUS, UHCG, CUU #### [facility] [address] Protein,Urine Negative Normal Negative [facility] Comment on above: Order Comment: Name Collection Type:: Clean-Voided Midstream Performed By: #### A DDONUAPLUS, UHCG, CUU #### [facility] [address] Specificy [place],Urine 1.017 Normal 1.001-1.030 [facility] Comment on above: Order Comment: Name Collection Type:: Clean-Voided Midstream Performed By: #### A DDONUAPLUS, UHCG, CUU #### [address] Urobilinogen,Urine Normal Normal Normal [facility] Comment on above: Order Comment: Name Collection Type:: Clean-Voided Midstream Performed By: #### A DDONUAPLUS, UHCG, CUU #### [address] Urine clarity by refractomet ry automatedOrdered By: Roseline Mejia on 02-13-2023 Clarity Refractometry automated (U) Clear Clear [facility] Urine glucose measurement by automated test strip (mass/volume)Ordered By: Roseline Mejia on 02-13-2023 Glucose Auto test strip (U) [Mass/Vol] Normal mg/dL Normal [facility] Urine hemoglobin detection b y automated test stripOrdered By: Roseline Mejia on 02-13-2023 Hemoglobin Auto test strip Ql (U) Negative Negative [facility] Urine leukocyte esterase det ection by automated test stripOrdered By: Roseline Mejia on 02-13-2023 Leukocyte esterase Auto test strip Ql (U) Negative Negative [facility] Urine pH measurement by auto mated test stripOrdered By: Roseline Mejia on 02-13-2023 pH (U) 5.5 [pH] Normal 5.0-9.0 [facility] Comment on above: Order Comment: Name Collection Type:: Clean-Voided Midstream Performed By: #### A DDONUAPLUS, UHCG, CUU #### [facility] [address] Urobilinogen Auto test strip (U) [Mass/Vol]Ordered By: Roseline Mejia on 02-13-2023 Urobilinogen (U) [Mass/Vol] Normal mg/dL Normal [facility] CBC W Auto Differential pane l (Bld)on 02-12-2023 Basophils (Bld) [#/Vol] 0.02 x10*3/uL Normal 0.00-0.10 [facility] Comment on above: Performed By: #### 5 7021-8 #### OUMAR BRICEÑO ([id number]) [facility] ([facility] [id number] [place] [address] Basophils/100 WBC (Bld) 0.5 % Normal 0.0-2.0 [facility] Comment on above: Performed By: #### 5 7021-8 #### OUMAR BRICEÑO ([id number]) [facility] ([facility]) [id number] [place] [address] Eosinophils (Bld) [#/Vol] 0.06 x10*3/uL Normal 0.00-0.70 [facility] Comment on above: Performed By: #### 5 7021-8 #### OUMAR BRICEÑO ([id number]) [facility] ([facility]) [address] [place] [address] Eosinophils/100 WBC (Bld) 1.4 % Normal 0.0-6.0 [facility] Comment on above: Performed By: #### 5 7021-8 #### OUMAR BRICEÑO ([id number]) [facility] ([facility]) [address] [place] [address] Erythrocyte distribution width (RBC) [Ratio] 12.1 % Normal 11.5-14.5 [facility] Comment on above: Performed By: #### 5 7021-8 #### OUMAR BRICEÑO ([id number]) [facility] ([facility]) [address] [place] [address] Hematocrit (Bld) [Volume fraction] 37.9 % Normal 36.0-46.0 [facility] Comment on above: Performed By: #### 5 7021-8 #### OUMAR BRICEÑO ([id number]) [facility] ([facility]) [address] [place] [address] Hemoglobin (Bld) [Mass/Vol] 12.8 g/dL Normal 12.0-16.0 [facility] Comment on above: Performed By: #### 5 7021-8 #### OUMAR BRICEÑO ([id number]) [facility] ([facility]) [id number] [place] [address] Immature granulocytes (Bld) [#/Vol] 0.01 x10*3/uL Normal 0.00-0.70 [facility] Comment on above: Performed By: #### 5 7021-8 #### OUMAR BRICEÑO ([id number]) [facility] ([facility]) [id number] [place] [address] Immature granulocytes/100 WBC (Bld) 0.2 % Normal 0.0-0.9 [facility] Comment on above: Result Comment: Janny ture Granulocyte Count (IG) includes promyelocytes, myelocytes and metamyelocytes but does not include bands. Percent differential counts (%) should be interpreted in the context of the absolute cell counts (cells/UL). Performed By: #### 5 7021-8 #### OUMAR BRICEÑO ([id number]) [facility] ([facility]) [address] [place] [address] Lymphocytes (Bld) [#/Vol] 1.63 x10*3/uL Normal 1.20-4.80 [facility] Comment on above: Performed By: #### 5 7021-8 #### OUMAR BRICEÑO ([id number]) [facility] ([facility]) [address] [place] [address] Lymphocytes/100 WBC (Bld) 38.9 % Normal 13.0-44.0 [facility] Comment on above: Performed By: #### 5 7021-8 #### OUMAR BRICEÑO ([id number]) [facility] ([facility]) [address] [place] [address] MCH (RBC) [Entitic mass] 30.5 pg Normal 26.0-34.0 [facility] Comment on above: Performed By: #### 5 7021-8 #### OUMAR BRICEÑO ([id number]) [facility] ([facility]) [id number] [place] [address] MCHC (RBC) [Mass/Vol] 33.8 g/dL Normal 32.0-36.0 [facility] Comment on above: Performed By: #### 5 7021-8 #### OUMAR BRICEÑO ([id number]) [facility] ([facility]) [id number] [place] [address] MCV (RBC) [Entitic vol] 91 fL Normal 80-100 [facility] Comment on above: Performed By: #### 5 7021-8 #### OUMAR BRICEÑO ([id number]) [facility] ([facility]) [id number] [place] [address]135 Monocytes (Bld) [#/Vol] 0.26 x10*3/uL Normal 0.10-1.00 [facility] Comment on above: Performed By: #### 5 7021-8 #### OUMAR BRICEÑO ([id number]) [facility] ([facility]) [address] [place] [address]70 Monocytes/100 WBC (Bld) 6.2 % Normal 2.0-10.0 [facility] Comment on above: Performed By: #### 5 7021-8 #### OUMAR BRICEÑO ([id number]) [facility] ([facility]) [id number] [place] [address] Neutrophils (Bld) [#/Vol] 2.21 x10*3/uL Normal 1.20-7.70 [facility] Comment on above: Result Comment: Perc ent differential counts (%) should be interpreted in the context of the absolute cell counts (cells/uL). Performed By: #### 5 7021-8 #### OUMAR BRICEÑO ([id number]) [facility] ([facility]) [address] [place] [address] Neutrophils/100 WBC (Bld) 52.8 % Normal 40.0-80.0 [facility] Comment on above: Performed By: #### 5 7021-8 #### OUMAR BRICEÑO ([id number]) [facility] ([facility]) [address] [place] [address] Nucleated RBC/100 WBC (Bld) [Ratio] 0.0 /100 WBCs Normal 0.0-0.0 [facility] Comment on above: Performed By: #### 5 7021-8 #### OUMAR BRICEÑO ([id number]) [facility] ([facility]) [address] [place] [address] Platelets (Bld) [#/Vol] 291 x10*3/uL Normal 150-450 [facility] Comment on above: Performed By: #### 5 7021-8 #### OUMAR BRICEÑO ([id number]) [facility] ([facility]) [address] [place] [address] RBC (Bld) [#/Vol] 4.19 x10*6/uL Normal 4.00-5.20 [facility] Comment on above: Performed By: #### 5 7021-8 #### OUMAR BRICEÑO (65683) [facility] ([facility]) [address] [place] [address] WBC (Bld) [#/Vol] 4.2 x10*3/uL Low 4.4-11.3 [facility] Comment on above: Performed By: #### 5 7021-8 #### OUMAR BRICEÑO (50227) [facility] ([facility]) [address] [place] [address] Comprehensive metabolic 2000 panelon 02-12-2023 Albumin BCP dye [Mass/Vol] 4.2 g/dL Normal 3.4-5.0 [facility] Comment on above: Performed By: #### 2 4323-8 #### OUMAR BRICEÑO (43960) [facility] ([facility]) [address] [place] [address] ALP [Catalytic activity/Vol] 55 U/L Normal 33-110 [facility] Comment on above: Performed By: #### 2 4323-8 #### OUMAR BRICEÑO ([id number]) [facility] ([facility]) [address] [place] [address] ALT With P-5'-P [Catalytic activity/Vol] 13 U/L Normal 7-45 [facility] Comment on above: Result Comment: Umm ents treated with Sulfasalazine may generate falsely decreased results for ALT. Performed By: #### 2 4323-8 #### OUMAR BRICEÑO ([id number]) [facility] ([facility]) [address] [place] [address] Anion gap [Moles/Vol] 13 mmol/L Normal 10-20 [facility] Comment on above: Performed By: #### 2 4323-8 #### OUMAR BRICEÑO (57954) [facility] ([facility]) [address] [place] [address] AST With P-5'-P [Catalytic activity/Vol] 21 U/L Normal 9-39 [facility] Comment on above: Performed By: #### 2 4323-8 #### OUMAR BRICEÑO ([id number]) [facility] ([facility]) [address] [place] [address] Bilirubin [Mass/Vol] 0.5 mg/dL Normal 0.0-1.2 [facility] Comment on above: Performed By: #### 2 4323-8 #### OUMAR BRICEÑO (97592) [facility] ([facility]) [address] [place] [address] Calcium [Mass/Vol] 8.9 mg/dL Normal 8.6-10.3 [facility] Comment on above: Performed By: #### 2 4323-8 #### OUMAR BRICEÑO ([id number]) [facility] ([facility]) [address] [place] [address] Chloride [Moles/Vol] 107 mmol/L Normal 98-107 [facility] Comment on above: Performed By: #### 2 4323-8 #### OUMAR BRICEÑO (58544) [facility] ([facility]) [address] [place] [address] CO2 [Moles/Vol] 23 mmol/L Normal 21-32 [facility] Comment on above: Performed By: #### 2 4323-8 #### OUMAR BRICEÑO (29789) [facility] ([facility]) [address] [place] [address] Creatinine [Mass/Vol] 0.73 mg/dL Normal 0.50-1.05 [facility] Comment on above: Performed By: #### 2 4323-8 #### OUMAR BRICEÑO (22053) [facility] ([facility]) [address] [place] [address] GFR/1.73 sq M.predicted MDRD (S/P/Bld) [Vol rate/Area] mL/min/{1.73_m2} Normal >60 [facility] Comment on above: Result Comment: Calc ulations of estimated GFR are performed using the 2020 CKD-EPI Study Refit equation without the race variable for the IDMS-Traceable creatinine methods. https://jasn.asnjournals.org/content//ASN.76657845 88 Performed By: #### 2 4323-8 #### OUMAR BRICEÑO ([id number]) [facility] ([facility]) [address] [place] [address] Glucose [Mass/Vol] 84 mg/dL Normal 74-99 [facility] Comment on above: Performed By: #### 2 4323-8 #### OUMAR BRICEÑO (97613) [facility] ([facility]) [address] [place] [address] Potassium [Moles/Vol] 3.6 mmol/L Normal 3.5-5.3 [facility] Comment on above: Performed By: #### 2 4323-8 #### OUMAR BRICEÑO (82515) [facility] ([facility]) [address] [place] [address] Protein [Mass/Vol] 7.0 g/dL Normal 6.4-8.2 [facility] Comment on above: Performed By: #### 2 4323-8 #### OUMAR BRICEÑO ([id number]) [facility] ([facility]) [address] [place] [address] Sodium [Moles/Vol] 139 mmol/L Normal 136-145 [facility] Comment on above: Performed By: #### 2 4323-8 #### OUMAR BRICEÑO ([id number]) [facility] ([facility]) [address] [place] [address] Urea nitrogen [Mass/Vol] 9 mg/dL Normal 6-23 [facility] Comment on above: Performed By: #### 2 4323-8 #### OUMAR BRICEÑO (78903) [facility] ([facility]) [address] [place] [address] Lactateon 02-12-2023 Lactate [Moles/Vol] 0.6 mmol/L Normal 0.4-2.0 [facility] Comment on above: Order Comment: Venip uncture immediately after or during the administration of Metamizole may lead to falsely low results. Testing should be performed immediately prior to Metamizole dosing. Performed By: #### 2 524-7 #### OUMAR BRICEÑO ([id number]) [facility] ([facility]) [address] [place] [address] Triacylglycerol lipaseon 12- 29-2023 Lipase [Catalytic activity/Vol] 43 U/L Normal 9-82 [facility] Comment on above: Order Comment: Venip uncture immediately after or during the administration of Metamizole may lead to falsely low results. Testing should be performed immediately prior to Metamizole dosing. Performed By: #### 3 040-3 #### OUMAR BRICEÑO (24788) [facility] ([facility]) [address] [place] [address] Urinalysis complete panel (U )on 02-12-2023 Appearance (U) Clear Normal Clear [facility] Comment on above: Performed By: #### 2 4356-8 #### OUMAR BRICEÑO ([id number]) [facility] ([facility]) [id number] [place] [address] Bilirubin (U) [Mass/Vol] Negative Normal NEGATIVE [facility] Comment on above: Performed By: #### 2 4356-8 #### OUMAR BRICEÑO ([id number]) [facility] ([facility] [address] [place] [address] Color (U) Yellow Normal Straw, Yellow [facility] Comment on above: Performed By: #### 2 4356-8 #### OUMAR BRICEÑO ([id number]) [facility] ([facility]) [address] [place] [address] Glucose Auto test strip (U) [Mass/Vol] Negative Normal NEGATIVE [facility] Comment on above: Performed By: #### 2 4356-8 #### OUMAR BRICEÑO ([id number]) [facility] ([facility]) [address] [place] [address] Ketones (U) [Mass/Vol] Negative Normal NEGATIVE [facility] Comment on above: Performed By: #### 2 4356-8 #### OUMAR BRICEÑO ([id number]) [facility] ([facility]) [address] [place] [address] Leukocyte esterase Auto test strip Ql (U) Negative Normal NEGATIVE [facility] Comment on above: Performed By: #### 2 4356-8 #### OUMAR BRICEÑO (83357) [facility] ([facility]) [address] [place] [address] Nitrite Auto test strip Ql (U) Negative Normal NEGATIVE [facility] Comment on above: Performed By: #### 2 4356-8 #### OUMAR BRICEÑO ([id number]) [facility] ([facility]) [address] [place] [address] pH (U) 6.0 [pH] Normal 5.0, 5.5, 6.0, 6.5, 7.0, 7.5, 8.0 [facility] Comment on above: Performed By: #### 2 4356-8 #### OUMAR BRICEÑO (99954) [facility] ([facility]) [address] [place] [address] Protein (U) [Mass/Vol] Negative Normal NEGATIVE [facility] Comment on above: Performed By: #### 2 435-8 #### OUMAR BRICEÑO ([id number]) [facility] ([facility]) [address] [place] [address] RBC (U) [#/Vol] Negative Normal NEGATIVE [facility] Comment on above: Performed By: #### 2 4356-8 #### OUMAR BRICEÑO ([id number]) [facility] ([facility]) [address] [place] [address] Specific gravity (U) [Rel density] 1.021 Normal 1.005-1.035 [facility] Comment on above: Performed By: #### 2 4356-8 #### OUMAR BRICEÑO (82974) [facility] ([facility]) [address] [place] [address] Urobilinogen (U) [Mass/Vol] mg/dL Normal <2.0 [facility] Comment on above: Performed By: #### 2 4356-8 #### OUMAR BRICEÑO (29188) [facility] ([facility]) [address] [place] [address] CNPNon 02-11-2023 CNPN Normal [facility] HISTORY PHYSICALon HISTORY PHYSICAL HNO ID: [id number] Author: Vic Ramos MD Service: Pain Management [...] DATE: February 10, 2023 TIME: 2:00 PM [facility] HISTORY PHYSICAL HNO ID: [id number] Author: Anam Carter APRN.LABEL FOLDER Service: General Internal Medicine Author Type: Nurse Practitioner Type: HANDP Filed: 02/10/2023 2:04 PM Note Text: Abbey Garcia returns to [facility] for the [...] syndrome Plan: Block celiac plexus Anam Carter APRN.[facility] OPERATIVE NOon 02-10-2023 OPERATIVE NO HNO ID: [id number] Author: Vic Ramos MD Service: Pain Management Author Type: Anesthesiologist Type: Operative Report Filed: 02/10/2023 2:41 PM Note Text: [facility] Pre-Procedure Note Patient Name: Abbey Garcia SUBJECTIVE: Abbey Garcia is a 32 year old female who presents to [facility]. This is her 1st. Patient denies any contraindications to the procedure including . She states she is NPO and has a driver starting gate for return home. OBJECTIVE: BP 121/74 Pulse [...] procedure. Vic Ramos MD February 10, 2023 [facility] Post-Procedure Note Patient [...] February 10, 2023 day of surgery Normal [facility] Family Medicine Office/Clini c Noteon 02-03-2023 Family Medicine Office/Clinic Note Normal [facility] Comment on above: Result Comment: Elec tronically Signed By: Jaquan Paula\.br\Date and Time Signed: 02/03/23 15:18 EST CNPNon 01-15-2023 CNPN Normal [facility] VAS US MESENTERIC ARTERY DU PLEX COMPLETEon 01-14-2023 VAS US MESENTERIC [place] [address] Vascular Lab Report VAS US MESENTERIC ARTERY DUPLEX COMPLETE Patient Name: ABBEY PHIPPS Reading Physician: [id number] Jaquelin Boggs MD, RPVI Study Date: 01/14/2023 Ordering Provider: [id number] SHERRY MAGAÑA MRN/PID: [id number] Fellow: Technologist: Anam Mc RVMar yJane Date of /Age: 2 1990 / 32 years Technologist 2: Gender: F Admission Status: Outpatient Location Performed: [facility] 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 History of gastric bypass with [...] PSV 116 cm/s Splenic PSV 77 cm/s 69283 Jaquelin Boggs MD, RPBENNETT Final Normal [facility] CBC W Auto Differential pane l (Bld)on 01-13-2023 Basophils (Bld) [#/Vol] 0.04 x10*3/uL Normal 0.00-0.10 [facility] Comment on above: Performed By: #### 5 7021-8 #### MELISA Galvan ([id number]) [facility] () [address] [place] [address] Basophils/100 WBC (Bld) 0.7 % Normal 0.0-2.0 [facility] Comment on above: Performed By: #### 5 7021-8 #### MELISA Galvan (62774) [facility] () [address] [place] [address] Eosinophils (Bld) [#/Vol] 0.13 x10*3/uL Normal 0.00-0.70 [facility] Comment on above: Performed By: #### 5 7021-8 #### MELISA Galvan (75333) [facility] () [address] [place] [address] Eosinophils/100 WBC (Bld) 2.2 % Normal 0.0-6.0 [facility] Comment on above: Performed By: #### 5 7021-8 #### MELISA Galvan (46348) [facility] () [address] [place] [address] Erythrocyte distribution width (RBC) [Ratio] 12.4 % Normal 11.5-14.5 [facility] Comment on above: Performed By: #### 5 7021-8 #### MELISA Galvan (83330) [facility] () [address] [place] [address] Hematocrit (Bld) [Volume fraction] 36.6 % Normal 36.0-46.0 [facility] Comment on above: Performed By: #### 5 7021-8 #### MELISA Galvan (21338) [facility] () [address] [place] [address] Hemoglobin (Bld) [Mass/Vol] 12.6 g/dL Normal 12.0-16.0 [facility] Comment on above: Performed By: #### 5 7021-8 #### MELISA Galvan (74192) [facility] () [address] [place] [address] Immature granulocytes (Bld) [#/Vol] 0.01 x10*3/uL Normal 0.00-0.70 [facility] Comment on above: Performed By: #### 5 7021-8 #### MELISA Galvan (83076) [facility] () [address] [place] [address] Immature granulocytes/100 WBC (Bld) 0.2 % Normal 0.0-0.9 [facility] Comment on above: Result Comment: Janny ture Granulocyte Count (IG) includes promyelocytes, myelocytes and metamyelocytes but does not include bands. Percent differential counts (%) should be interpreted in the context of the absolute cell counts (cells/UL). Performed By: #### 5 7021-8 #### MELISA Galvan (05957) [facility] () [address] [place] [address] Lymphocytes (Bld) [#/Vol] 2.26 x10*3/uL Normal 1.20-4.80 [facility] Comment on above: Performed By: #### 5 7021-8 #### MELISA Galvan (95738) [facility] () [address] [place] [address] Lymphocytes/100 WBC (Bld) 39.0 % Normal 13.0-44.0 [facility] Comment on above: Performed By: #### 5 7021-8 #### MELISA Galvan (53976) [facility] () [address] [place] [address] MCH (RBC) [Entitic mass] 30.7 pg Normal 26.0-34.0 [facility] Comment on above: Performed By: #### 5 7021-8 #### MELISA Galvan (63845) [facility] () [address] [place] [address] MCHC (RBC) [Mass/Vol] 34.4 g/dL Normal 32.0-36.0 [facility] Comment on above: Performed By: #### 5 7021-8 #### MELISA Galvan (40499) [facility] () [address] [place] [address] MCV (RBC) [Entitic vol] 89 fL Normal 80-100 [facility] Comment on above: Performed By: #### 5 7021-8 #### MELISA Galvan (37870) [facility] () [address] [place] [address] Monocytes (Bld) [#/Vol] 0.41 x10*3/uL Normal 0.10-1.00 [facility] Comment on above: Performed By: #### 5 7021-8 #### MELISA Galvan (03011) [facility] () [address] [place] [address] Monocytes/100 WBC (Bld) 7.1 % Normal 2.0-10.0 [facility] Comment on above: Performed By: #### 5 7021-8 #### MELISA Galvan (95536) [facility] () [address] [place] [address] Neutrophils (Bld) [#/Vol] 2.95 x10*3/uL Normal 1.20-7.70 [facility] Comment on above: Result Comment: Perc ent differential counts (%) should be interpreted in the context of the absolute cell counts (cells/uL). Performed By: #### 5 7021-8 #### MELISA Galvan (46242) [facility] () [address] [place] [address] Neutrophils/100 WBC (Bld) 50.8 % Normal 40.0-80.0 [facility] Comment on above: Performed By: #### 5 7021-8 #### MELISA Galvan (91175) [facility] () [address] [place] [address] Nucleated RBC/100 WBC (Bld) [Ratio] 0.0 /100 WBCs Normal 0.0-0.0 [facility] Comment on above: Performed By: #### 5 7021-8 #### MELISA Galvan (39658) [facility] () [address] [place] [address] Platelets (Bld) [#/Vol] 222 x10*3/uL Normal 150-450 [facility] Comment on above: Performed By: #### 5 7021-8 #### MELISA Galvan (03073) [facility] () [address] [place] [address] RBC (Bld) [#/Vol] 4.11 x10*6/uL Normal 4.00-5.20 [facility] Comment on above: Performed By: #### 5 7021-8 #### MELISA Galvan (57408) [facility] () [address] [place] [address] WBC (Bld) [#/Vol] 5.8 x10*3/uL Normal 4.4-11.3 [facility] Comment on above: Performed By: #### 5 7021-8 #### MELISA Galvan (73332) [facility] () [address] [place] [address] Comprehensive metabolic 2000 panelon 01-13-2023 Albumin [Mass/Vol] 4.2 g/dL Normal 3.5-5.0 [facility] Comment on above: Performed By: #### 2 4323-8 #### MELISA Galvan (77764) [facility] () [address] [place] [address] ALP (Bld) [Catalytic activity/Vol] 74 U/L Normal 35-125 [facility] Comment on above: Performed By: #### 2 432-8 #### MELISA Galvan (84463) [facility] () [address] [place] [address] ALT [Catalytic activity/Vol] 15 U/L Normal 5-40 [facility] Comment on above: Performed By: #### 2 432-8 #### MELISA Galvan (82821) [facility] () [address] [place] [address] Anion gap [Moles/Vol] 10 mmol/L Normal <=19 [facility] Comment on above: Performed By: #### 2 4323-8 #### MELISA Galvan (46961) [facility] () [address] [place] [address] AST [Catalytic activity/Vol] 26 U/L Normal 5-40 [facility] Comment on above: Performed By: #### 2 4323-8 #### MELISA Galvan (38051) [facility] () [address] [place] [address] Bilirubin [Mass/Vol] 0.5 mg/dL Normal 0.1-1.2 [facility] Comment on above: Performed By: #### 2 4323-8 #### MELISA Galvan (86651) [facility] () [address] [place] [address] Calcium [Mass/Vol] 9.1 mg/dL Normal 8.5-10.4 [facility] Comment on above: Performed By: #### 2 432-8 #### MELISA Galvan (36438) [facility] () [address] [place] [address] Chloride [Moles/Vol] 103 mmol/L Normal 97-107 [facility] Comment on above: Performed By: #### 2 4323-8 #### MELISA Galvan (20338) [facility] () [address] [place] [address] CO2 [Moles/Vol] 23 mmol/L Low 24-31 [facility] Comment on above: Performed By: #### 2 4323-8 #### MELISA Galvan (49043) [facility] () [address] [place] [address] Creatinine [Mass/Vol] 0.70 mg/dL Normal 0.40-1.60 [facility] Comment on above: Performed By: #### 2 4323-8 #### MELISA Galvan (94686) [facility] () [address] [place] [address] GFR/1.73 sq M.predicted MDRD (S/P/Bld) [Vol rate/Area] mL/min/{1.73_m2} Normal >60 [facility] Comment on above: Result Comment: Calc ulations of estimated GFR are performed using the 2020 CKD-EPI Study Refit equation without the race variable for the IDMS-Traceable creatinine methods. https://jasn.asnjournals.org/content/early//ASN.92029588 88 Performed By: #### 2 4323-8 #### MELISA Galvan (97088) [facility] () [address] [place] [address] Glucose [Mass/Vol] 89 mg/dL Normal 65-99 [facility] Comment on above: Performed By: #### 2 4323-8 #### MELISA Galvan (14945) [facility] () [address] [place] [address] Potassium [Moles/Vol] 3.5 mmol/L Normal 3.4-5.1 [facility] Comment on above: Performed By: #### 2 4323-8 #### MELISA Galvan (01924) [facility] () [address] [place] [address] Protein [Mass/Vol] 6.9 g/dL Normal 5.9-7.9 [facility] Comment on above: Performed By: #### 2 4323-8 #### MELISA Galvan (21777) [facility] () [address] [place] [address] Sodium [Moles/Vol] 136 mmol/L Normal 133-145 [facility] Comment on above: Performed By: #### 2 4323-8 #### MELISA Galvan (63858) [facility] () [address] [place] [address] Urea nitrogen [Mass/Vol] 13 mg/dL Normal 8-25 [facility] Comment on above: Performed By: #### 2 4323-8 #### MELISA Galvan (26458) [facility] () [address] [place] [address] HCG ( test) IA.rapi d Ql (U)on 01-13-2023 HCG ( test) Ql (U) Negative Normal NEGATIVE [facility] Comment on above: Performed By: #### 8 0384-1 #### MELISA Galvan (62480) [facility] () [address] [place] [address] Urinalysis complete panel (U )on 01-13-2023 Appearance (U) Clear Normal Clear [facility] Comment on above: Performed By: #### 2 4356-8 #### MELISA Galvan (71010) [facility] () [address] [place] [address] Bilirubin (U) [Mass/Vol] Negative Normal NEGATIVE [facility] Comment on above: Performed By: #### 2 4356-8 #### MELISA Galvan (33732) [facility] () [address] [place] [address] Color (U) Light-Yellow Normal Light-Yellow, Yellow, Dark-Yellow [facility] Comment on above: Performed By: #### 2 4356-8 #### MELISA Galvan (72534) [facility] () [address] [place] [address] Glucose Auto test strip (U) [Mass/Vol] Normal Normal Normal [facility] Comment on above: Performed By: #### 2 4356-8 #### MELISA Galvan (68424) [facility] () [address] [place] [address] Ketones (U) [Mass/Vol] Negative Normal NEGATIVE [facility] Comment on above: Performed By: #### 2 4356-8 #### MELISA Galvan (40210) [facility] () [address] [place] [address] Leukocyte esterase Auto test strip Ql (U) Negative Normal NEGATIVE [facility] Comment on above: Performed By: #### 2 4356-8 #### MELISA Galvan (62278) [facility] () [address] [place] [address] Nitrite Auto test strip Ql (U) Negative Normal NEGATIVE [facility] Comment on above: Performed By: #### 2 4356-8 #### MELISA Galvan (56287) [facility] () [address] [place] [address] pH (U) 7.0 [pH] Normal 5.0, 5.5, 6.0, 6.5, 7.0, 7.5, 8.0 [facility] Comment on above: Performed By: #### 2 4356-8 #### MELISA Galvan (87739) [facility] () [address] [place] [address] Protein (U) [Mass/Vol] Negative Normal NEGATIVE, 10 (TRACE), 20 (TRACE) [facility] Comment on above: Performed By: #### 2 4356-8 #### MELISA Galvan (17123) [facility] () [address] [place] [address] RBC (U) [#/Vol] Negative Normal NEGATIVE [facility] Comment on above: Performed By: #### 2 4356-8 #### MELISA Galvan (02279) [facility] () [address] [place] [address] Specific gravity (U) [Rel density] 1.010 Normal 1.005-1.035 [facility] Comment on above: Performed By: #### 2 4356-8 #### MELISA Galvan (58380) [facility] () [address] [place] [address] Urobilinogen (U) [Mass/Vol] Normal Normal Normal [facility] Comment on above: Performed By: #### 2 4356-8 #### MELISA Galvan (03181) [facility] () [address] [place] [address] CNPNon 01-11-2023 CNPN Normal [facility] CNPNon 01-06-2023 CNPN Normal [facility] Auto Diffon 12-31-2022 Basophils/100 WBC (Bld) 0.6 % Normal 0.0-2.0 [facility] Comment on above: Order Comment: Order Added by Discern Expert. Performed By: #### 2 749323, 2507644, 18054979, 0010032, 1467087, 70975737, 3673296 ####[facility] [address] [place] [address] Basophils/Leukocyte s Auto (Bld) [Pure # fraction] 0.0 E9/L Normal 0.0-0.2 [facility] Comment on above: Order Comment: Order Added by Discern Expert. Performed By: #### 2 972194, 9204692, 86350210, 8789923, 8831280, 08919786, 4914734 ####[address] [address] Eosinophils/100 WBC (Bld) 0.4 % Normal 0.0-8.0 [facility] Comment on above: Order Comment: Order Added by Discern Expert. Performed By: #### 2 927479, 8977838, 10073056, 2609587, 4838223, 46172377, 9276107 ####[address] [address] Eosinophils/Leukocy stevan Auto (Bld) [Pure # fraction] 0.0 E9/L Normal 0.0-0.5 [facility] Comment on above: Order Comment: Order Added by Discern Expert. Performed By: #### 2 271067, 8428377, 02518908, 9594775, 9896508, 51692024, 2712864 ####[address] [address] Lymphocytes/100 WBC (Bld) 42.3 % Normal 14.0-50.0 [facility] Comment on above: Order Comment: Order Added by Discern Expert. Performed By: #### 2 913194, 5469425, 62403866, 3870492, 7324233, 85360200, 2521399 ####[address] [address] Lymphocytes/Leukocy stevan Auto (Bld) [Pure # fraction] 1.9 E9/L Normal 1.0-4.0 [facility] Comment on above: Order Comment: Order Added by Discern Expert. Performed By: #### 2 992437, 3599134, 45518918, 4868394, 3145785, 36759405, 0128607 ####[address] [address] Monocytes/100 WBC (Bld) 7.9 % Normal 4.0-14.0 [facility] Comment on above: Order Comment: Order Added by Discern Expert. Performed By: #### 2 866752, 7156384, 16611380, 4988663, 1025064, 17250253, 8442720 ####[facility] [address] [place] [address] Monocytes/Leukocyte s Auto (Bld) [Pure # fraction] 0.4 E9/L Normal 0.2-1.0 [facility] Comment on above: Order Comment: Order Added by Discern Expert. Performed By: #### 2 714834, 1175778, 69345449, 7094208, 6256180, 09294546, 6628947 ####[address] [place] [address] Neutrophils/100 WBC (Bld) 48.8 % Normal 36.0-75.0 [facility] Comment on above: Order Comment: Order Added by Discern Expert. Performed By: #### 2 421385, 3852847, 65153019, 6448172, 9186521, 93543618, 1002659 ####[address] [address] Neutrophils/Leukocy stevan Auto (Bld) [Pure # fraction] 2.2 E9/L Normal 2.0-7.5 [facility] Comment on above: Order Comment: Order Added by Discern Expert. Performed By: #### 2 749093, 8394791, 29262634, 3775975, 3167619, 32282590, 0858725 ####[address] [place] [address] B hCG Qualon 12-31-2022 Beta HCG ( test) Ql Negative Normal [facility] Comment on above: Performed By: #### 2 489340, 5191873, 53417844, 1665376, 8409593, 99257426, 4352777 ####[facility] [address] [place] [address] BMPon 12-31-2022 Creatinine [Mass/Vol] 0.8 mg/dL Normal 0.5-1.3 [facility] Comment on above: Performed By: #### 2 665064, 5671613, 65911884, 5565273, 3530840, 81331967, 2998544 ####[facility] [address] [place] [address] Urea nitrogen [Mass/Vol] 16 mg/dL Normal 5-21 [facility] Comment on above: Performed By: #### 2 325700, 8135619, 99122001, 9298338, 9851652, 70387884, 5772204 ####[facility] [address] [place] [address] Urea nitrogen/Creatinine [Mass ratio] 20 No Units Normal 10-20 [facility] Comment on above: Performed By: #### 2 915071, 2305635, 93062979, 1388884, 6026131, 76111337, 3707156 ####[facility] [address] [place] [address] Anion gap [Moles/Vol] 10 mmol/L Normal 6-16 [facility] Comment on above: Performed By: #### 2 022060, 7598483, 61791020, 7660644, 5089524, 84663458, 5890650 ####[facility] [address] [place] [address] Calcium [Mass/Vol] 8.6 mg/dL Low 8.9-11.1 [facility] Comment on above: Performed By: #### 2 688978, 4655616, 88092296, 1038709, 2714066, 16007037, 9658786 ####[facility] [address] [place] [address] Chloride [Moles/Vol] 110 mmol/L Normal 101-111 [facility] Comment on above: Performed By: #### 2 587179, 2951525, 42793517, 9883251, 3412267, 36513663, 2624300 ####[facility] [address] [place] [address] CO2 [Moles/Vol] 20 mmol/L Low 21-31 [facility] Comment on above: Performed By: #### 2 037750, 0708081, 98721835, 3387619, 9641401, 20387801, 9123516 ####[facility] [address] [place] [address] Glucose [Mass/Vol] 87 mg/dL Normal 55-199 [facility] Comment on above: Result Comment: If t his glucose result represents a fasting glucose, interpretation should refer to the following reference range: 55-99 mg/dL Performed By: #### 2 876820, 3611442, 87150666, 2908817, 2745324, 25645243, 2906945 ####[facility] [address] [place] [address] Potassium [Moles/Vol] 3.2 mmol/L Low 3.5-5.3 [facility] Comment on above: Performed By: #### 2 073216, 1712796, 15918361, 6807311, 1462136, 85193377, 9677252 ####[address] [place] [address] Sodium [Moles/Vol] 137 mmol/L Normal 135-145 [facility] Comment on above: Performed By: #### 2 670247, 7483298, 78348424, 1930525, 1636616, 26035850, 9467852 ####[address] [address] CBC w/ Auto Diffon 3 Erythrocyte distribution width (RBC) [Ratio] 13.9 % Normal 10.9-14.2 [facility] Comment on above: Performed By: #### 2 598826, 8232126, 60301616, 0878365, 3058241, 21445434, 9006239 ####[facility] [address] [place] [address] Hematocrit (Bld) [Volume fraction] 35.5 % Normal 34.0-46.0 [facility] Comment on above: Performed By: #### 2 186940, 3639363, 94437453, 9621515, 1164790, 48950812, 2569795 ####[facility] [address] [place] [address] Hemoglobin (Bld) [Mass/Vol] 12.2 g/dL Normal 12.0-16.0 [facility] Comment on above: Performed By: #### 2 177524, 7215563, 11636137, 2231963, 5837097, 58131606, 6910586 ####[facility] [address] [place] [address] MCH (RBC) [Entitic mass] 30.8 pg Normal 27.0-34.0 [facility] Comment on above: Performed By: #### 2 923280, 2364193, 27451572, 8550444, 5951993, 72138126, 4461116 ####[facility] [address] [place] [address] MCHC (RBC) [Mass/Vol] 34.4 g/dL Normal 31.4-36.0 [facility] Comment on above: Performed By: #### 2 695447, 1949922, 84241370, 5785637, 4477797, 78958628, 6024183 ####[facility] [address] [place] [address] MCV (RBC) [Entitic vol] 89.5 fL Normal 80.0-100.0 [facility] Comment on above: Performed By: #### 2 419331, 2315287, 36887843, 9632287, 4493284, 04616970, 1073272 ####[address] [address] Platelet mean volume (Bld) [Entitic vol] 9.5 fL Normal 6.4-10.8 [facility] Comment on above: Performed By: #### 2 500651, 1582073, 80814589, 8671074, 1460530, 05548875, 6136461 ####[facility] [address] [place] [address] Platelets (Bld) [#/Vol] 177.0 E9/L Normal 150.0-500.0 [facility] Comment on above: Performed By: #### 2 497871, 4803041, 25511899, 3908267, 4371355, 52963285, 7521559 ####[facility] [address] [place] [address] RBC (Bld) [#/Vol] 4.0 E12/L Low 4.3-5.9 [facility] Comment on above: Performed By: #### 2 164008, 1242729, 59626270, 9514125, 7005506, 91148200, 7258848 ####[facility] [address] [place] [address] WBC corrected for nucl RBC Auto (Bld) [#/Vol] 4.4 E9/L Normal 4.0-11.0 [facility] Comment on above: Performed By: #### 2 613971, 0172469, 41570050, 2583472, 5429280, 27759723, 6732468 ####[facility] [address] [place] [address] CHEMISTRYOrdered By: SYSTEM SYSTEM on 12-31-2022 Albumin [Mass/Vol] 3.9 g/dL Normal 3.3 - 5.0 gm/dL [facility] Albumin/Globulin [Mass ratio] 1.3 {ratio} Normal [...] 8.6 mg/dL Low 8.9 - 11.1 mg/dL [facility] Chloride [Moles/Vol] 110 mmol/L Normal 101 - 111 mmol/L [facility] CO2 [Moles/Vol] 20 mmol/L Low 21 - 31 mmol/L [facility] Creatinine [Mass/Vol] 0.8 mg/dL Normal 0.5 - 1.3 mg/dL [facility] Remisol GFR/1.73 sq M.predicted among non-blacks MDRD (S/P/Bld) [Vol rate/Area] 100 mL/min/1.73 m2 Normal >=59mL/min/1.73 m2 [facility] Chem S Comment on above: Interpretive Data: [...] 3.2 mmol/L Low 3.5 - 5.3 mmol/L [facility] Remisol Protein [Mass/Vol] 6.8 g/dL Normal 6.0 - 7.8 gm/dL [facility] Remisol Sodium [Moles/Vol] 137 mmol/L Normal 135 - 145 mmol/L [facility] Urea nitrogen [Mass/Vol] 16 mg/dL Normal 5 - 21 mg/dL [facility] Urea nitrogen/Creatinine [Mass ratio] 20 mg/mg Normal 10 - 20 [facility] Consent for Treatmenton 12-16 Consent for Treatment [id number] 34#[id number] Normal [facility] Discharge Instructionson Discharge Instructions [id number] 93#[id number] Normal [facility] ED Clinical Summaryon 2022 ED Clinical Summary Normal [facility] ED Note-Physicianon 01-01-20 ED Note-Physician Normal [facility] Comment on above: Result Comment: Elec tronically Signed By: Lonnie Rios PA-C\.br\Date and Time Signed: 12/31/22 19:15 EST\.br\Electronically Co-Signed By: Mateusz Garcia DO\.br\Date and Time Co-Signed: 12/31/22 19:25 EST ED Patient Education Noteon 12-31-2022 ED Patient Education Note Normal [facility] ED Patient Summaryon ED Patient Summary Normal [facility] HEMATOLOGYOrdered By: SYSTEM SYSTEM on 12-31-2022 [...] 2.2 E9/L Normal 2.0 - 7.5 E9/L [facility] HemeAutoSS HEMATOLOGYOrdered By: Shannon osei on 12-31-2022 Erythrocyte distribution width (RBC) [Ratio] 13.9 % Normal 10.9 - 14.2 % [facility] HemeAutoSS Hematocrit (Bld) [Volume fraction] 35.5 % Normal 34.0 - 46.0 % [facility] HemeAutoSS Hemoglobin (Bld) [Mass/Vol] 12.2 g/dL Normal 12.0 - 16.0 gm/dL [facility] HemeAutoSS MCH (RBC) [Entitic mass] 30.8 pg Normal 27.0 - 34.0 pg [facility] HemeAutoSS MCHC (RBC) [Mass/Vol] 34.4 g/dL Normal 31.4 - 36.0 gm/dL [facility] HemeAutoSS MCV (RBC) [Entitic vol] 89.5 fL Normal 80.0 - 100.0 fL [facility] HemeAutoSS Platelet mean volume (Bld) [Entitic vol] 9.5 fL Normal 6.4 - 10.8 fL [facility] HemeAutoSS Platelets (Bld) [#/Vol] 177.0 E9/L Normal 150.0 - 500.0 E9/L [facility] HemeAutoSS RBC (Bld) [#/Vol] 4.0 E12/L Low 4.3 - 5.9 E12/L [facility] HemeAutoSS WBC corrected for nucl RBC Auto (Bld) [#/Vol] 4.4 E9/L Normal 4.0 - 11.0 E9/L [facility] HemeAutoSS Hep Func Panelon 12-31-2022 Albumin [Mass/Vol] 3.9 g/dL Normal 3.3-5.0 [facility] Comment on above: Performed By: #### 2 001975, 5491345, 34117569, 8961821, 8500562, 71975772, 1996442 ####[facility] [address] [place] [address] Albumin/Globulin (S) [Mass conc ratio] 1.3 Normal 1.1-2.2 [facility] Comment on above: Performed By: #### 2 876187, 3248142, 95850054, 0727474, 0813829, 30868449, 4874426 ####[facility] [address] [place] [address] ALP [Catalytic activity/Vol] 51 Int._Unit/L Normal 21-98 [facility] Comment on above: Performed By: #### 2 352634, 9867702, 01781467, 0484671, 2300450, 02358631, 6221653 ####[address] [address] ALT No additional P-5'-P [Catalytic activity/Vol] 21 Int._Unit/L Normal 6-46 [facility] Comment on above: Performed By: #### 2 157119, 4069963, 81972521, 3867969, 8167498, 04688386, 5773538 ####[address] [address] AST [Catalytic activity/Vol] 32 Int._Unit/L Normal 5-43 [facility] Comment on above: Performed By: #### 2 690693, 0947886, 68418436, 2987739, 0580952, 09866598, 0507165 ####[address] [address] Bilirubin [Mass/Vol] 0.5 mg/dL Normal 0.0-1.1 [facility] Comment on above: Performed By: #### 2 376433, 6132983, 87607461, 4558489, 4357014, 23268217, 7258369 ####[facility] [address] [place] [address] Bilirubin.direct [Mass/Vol] 0.1 mg/dL Normal 0.1-0.4 [facility] Comment on above: Performed By: #### 2 137002, 3460067, 89760334, 4342046, 1403038, 60716001, 4157660 ####[facility] [address] [place] [address] Bilirubin.indirect [Mass or moles/Vol] 0.4 mg/dL Normal 0.1-0.9 [facility] Comment on above: Performed By: #### 2 722356, 8193112, 46632230, 4797774, 1879076, 97915022, 9847220 ####[facility] [address] [place] [address] Globulin (S) [Mass/Vol] 2.9 g/dL Normal 1.4-4.0 [facility] Comment on above: Performed By: #### 2 903317, 2315925, 97325904, 0002235, 7019713, 71624891, 9177218 ####[facility] [address] [place] [address] Protein [Mass/Vol] 6.8 g/dL Normal 6.0-7.8 [facility] Comment on above: Performed By: #### 2 717711, 4625723, 34860233, 7119600, 7792031, 03024774, 4170295 ####[facility] [address] [place] [address] Lipase Levelon 12-31-2022 Lipase [Catalytic activity/Vol] 49 U/L Normal 13-58 [facility] Comment on above: Performed By: #### 2 208944, 2453049, 42821799, 3687669, 6332883, 91522689, 2542207 ####[facility] [address] [place] [address] SEROLOGYOrdered By: Stacia Blair on 12-31-2022 Beta HCG ( test) Ql Negative (12/31/22 1:16 PM) Normal [facility] Man Sero UA With Cult Reflexon 2022 Bilirubin Ql (U) Negative Normal Negative [facility] Comment on above: Performed By: #### 1 7879632 ####[address] [place] [address] Clarity (U) CLEAR Normal Clear [facility] Comment on above: Performed By: #### 1 1304428 ####[address] [address] Color (U) YELLOW Normal Yellow [facility] Comment on above: Performed By: #### 1 1663267 ####[address] [place] [address] Epithelial cells.squamous LM.HPF (Urine sed) [#/Area] 0-2 Normal 0-2 [facility] Comment on above: Performed By: #### 1 8102188 ####[address] [address] Glucose Test strip (U) [Mass/Vol] Negative Normal Negative [facility] Comment on above: Performed By: #### 1 7979753 ####[address] [address] Hemoglobin Ql (U) Negative Normal Negative [facility] Comment on above: Performed By: #### 1 0690763 ####[address] [address] Ketones (U) [Mass/Vol] Negative Normal Negative [facility] Comment on above: Performed By: #### 1 3232624 ####[address] [address] Mant[place].plasma/Lith ium.RBC (Bld) [Mass ratio] 0-3 Normal 0-3 [facility] Comment on above: Performed By: #### 1 7104141 ####[address] [address] Mucus Ql (Urine sed) TRACE Normal [facility] Comment on above: Performed By: #### 1 8881460 ####[address] [place] [address] Nitrite Ql (U) Negative Normal Negative [facility] Comment on above: Performed By: #### 1 1516319 ####[address] [address] pH (U) 6.0 [pH] Invalid Interpretation Code 5.0-9.0 [facility] Comment on above: Performed By: #### 1 7367590 ####[facility] [address] [place] [address] Protein (U) [Mass/Vol] Negative Normal Negative [facility] Comment on above: Performed By: #### 1 4639798 ####[address] [address] Specific gravity (U) [Rel density] 1.015 Invalid Interpretation Code 1.005-1.030 [facility] Comment on above: Performed By: #### 1 7490696 ####[address] [address] Type of Urine collection method Clean Catch Normal [facility] Comment on above: Performed By: #### 1 5909376 ####[address] [address] Urobilinogen Qn (U) 0.2 {Munir'U}/dL Normal 0.0-1.0 [facility] Comment on above: Performed By: #### 1 8498979 ####[address] [address] WBC Auto Ql (U) Negative Normal Negative [facility] Comment on above: Performed By: #### 1 2774320 ####[address] [address] WBC LM.HPF (Urine sed) [#/Area] 0-5 Normal 0-5 [facility] Comment on above: Performed By: #### 1 3125448 ####[address] [address] URINALYSISOrdered By: Marlene Blair on 12-31-2022 Bilirubin [...] [Mass/Vol] Negative (12/31/22 1:16 PM) Normal Negative FT UA Auto SS Hemoglobin Ql (U) Negative (12/31/22 1:16 PM) Normal Negative [facility] UA Auto SS Ketones (U) [Mass/Vol] Negative (12/31/22 1:16 PM) Normal Negative [facility] UA Auto SS [place].plasma/Lith ium.RBC (Bld) [Mass ratio] 0-3 /HPF Normal 0-3/HPF [facility] UA Auto SS Mucus Ql (Urine sed) Trace (12/31/22 1:16 PM) Normal [facility] Auto SS Nitrite Ql (U) Negative (12/31/22 1:16 PM) Normal Negative [facility] Auto SS pH (U) 6.0 *NA* (12/31/22 1:16 PM) Invalid Interpretation Code 5.0 - 9.0 [facility] UA Auto SS Protein (U) [Mass/Vol] Negative (12/31/22 1:16 PM) Normal Negative [facility] UA Auto SS Specific gravity (U) [Rel density] 1.015 *NA* (12/31/22 1:16 PM) Invalid Interpretation Code 1.005 - 1.030 [facility] Auto SS UA Spec Desc Clean Catch (12/31/22 1:16 PM) Normal [facility] UA Auto SS Urobilinogen Qn (U) 0.0520460 {Munir'U}/dL Normal 0.0 - 1.0 EU/dL [facility]A Auto SS WBC Auto Ql (U) Negative (12/31/22 1:16 PM) Normal Negative [facility] Auto SS WBC LM.HPF (Urine sed) [#/Area] 0-5 /HPF Normal 0-5/HPF [facility] Auto SS eGFRon 12-31-2022 GFR/1.73 sq M.predicted among non-blacks MDRD (S/P/Bld) [Vol rate/Area] 100 mL/min/1.73 m2 Normal >=59 [facility] Comment on above: Order Comment: Order added by Discern Expert. Result Comment: Sausage Linker alejandra kidney disease could be indicated at eGFR's of less than 60 mL/min/1.73m2. Kidney failure is indicated at less than 15 mL/min/1.73m2. Performed By: #### 2 851908, 3245094, 27815543, 8818966, 6305439, 14250475, 6134004 ####[facility] [address] [place] [address] Family Medicine Office/Clini c Noteon 12-29-2022 [facility] Medicine Office/Clinic Note Normal [facility] Comment on above: Result Comment: Elec tronically Signed By: Cristhian REDDING, Jaquan Johnson\.br\Date and Time Signed: 12/29/22 15:35 EST Provider Letteron 12-29-2022 Provider Letter Normal [facility] CNCOon 12-28-2022 CNCO Letter Text Normal [facility] CNPNon 12-28-2022 CNPN Normal [facility] CNCOon 12-25-2022 CNCO Letter Text Normal [facility] CNPNon 12-23-2022 CNPN Normal [facility] CBC With Platelet and Differ entialon 12-14-2022 Basophils (Bld) [#/Vol] 0.0 10*3/uL Normal 0.0-0.2 [facility] ([place] [place] Comment on above: Performed By: #### L IPAS #### [facility] ([place], [place]) [address] [place] [address] Basophils/100 WBC (Bld) 0.9 % Normal [facility] [place] Comment on above: Performed By: #### L IPAS #### [facility] ([place] [place]) [address] [place] [address] Eosinophils (Bld) [#/Vol] 0.2 10*3/uL Normal 0.0-0.7 [facility] [place] Comment on above: Performed By: #### L IPAS #### [facility] ([place] [place]) [address] [place] [address] Eosinophils/100 WBC (Bld) 4.0 % Normal [facility] ([place] [place] Comment on above: Performed By: #### L IPAS #### [facility] ([place] [place]) [address] [place] [address] Erythrocyte distribution width (RBC) [Ratio] 13.2 % Normal 11.5-14.5 [facility] ([place] [place] Comment on above: Performed By: #### L IPAS #### [facility] ([place], [place]) [address] [place] [address] Hematocrit (Bld) [Volume fraction] 36.5 % Low 37.0-47.0 [facility] ([place] [place]) Comment on above: Performed By: #### L IPAS #### [facility] ([place], [place]) [address] [place] [address] Hemoglobin (Bld) [Mass/Vol] 12.4 g/dL Normal 12.0-16.0 [facility] ([place] [place]) Comment on above: Performed By: #### L IPAS #### [facility] ([place], [place]) [address] [place] [address] Lymphocytes (Bld) [#/Vol] 1.7 10*3/uL Normal 1.0-4.8 [facility] ([place] [place] Comment on above: Performed By: #### L IPAS #### [facility] ([place], [place]) [address] [place] [address] Lymphocytes/100 WBC (Bld) 40.7 % Normal [facility] ([place] [place] Comment on above: Performed By: #### L IPAS #### [facility] ([place] [place]) [address] [place] [address] MCH (RBC) [Entitic mass] 31.0 pg Normal 27.0-31.3 [facility] ([place] [place] Comment on above: Performed By: #### L IPAS #### [facility] ([place], [place]) [address] [place] [address] MCHC 34.0 % Normal 33.0-37.0 [facility] ([place] [place]) Comment on above: Performed By: #### L IPAS #### [facility] ([place], [place]) [address] [place] [address] MCV (RBC) [Entitic vol] 91.3 fL Normal 79.4-94.8 [facility] ([place] [place] Comment on above: Performed By: #### L IPAS #### [facility] ([place] [place]) [address] [place] [address] Monocytes (Bld) [#/Vol] 0.3 10*3/uL Normal 0.2-0.8 [facility] ([place] [place] Comment on above: Performed By: #### L IPAS #### [facility] ([place] [place]) [address] [place] [address] Monocytes/100 WBC (Bld) 7.7 % Normal [facility] ([place] [place]) Comment on above: Performed By: #### L IPAS #### [facility] ([place] [place]) [address] [place] [address] Neutrophils (Bld) [#/Vol] 2.0 10*3/uL Normal 1.4-6.5 [facility] ([place] [place] Comment on above: Performed By: #### L IPAS #### [facility] ([place] [place]) [address] [place] [address] Neutrophils/100 WBC (Bld) 46.5 % Normal [facility] ([place] [place] Comment on above: Performed By: #### L IPAS #### [facility] ([place], [place]) [address] [place] [address] Platelets (Bld) [#/Vol] 187 10*3/uL Normal 130-400 [facility] ([place] [place]) Comment on above: Performed By: #### L IPAS #### [facility] ([place], [place]) [address] [place] [address] RBC (Bld) [#/Vol] 4.00 10*6/uL Low 4.20-5.40 [facility] ([place] [place] Comment on above: Performed By: #### L IPAS #### [facility] ([place], [place]) [address] [place] [address] WBC (Bld) [#/Vol] 4.3 10*3/uL Low 4.8-10.8 [facility] ([place] [place] Comment on above: Performed By: #### L IPAS #### [facility] ([place], [place]) [address] [place] [address] CTA ABDOMEN PELVIS W WO CONT RASTon [...] Addison Lorenzo MD 12/14/[address] [facility] [place] Comprehensive Metabolic Pane nestor 12-14-2022 Albumin [Mass/Vol] 4.0 g/dL Normal 3.5-4.6 [facility] ([place] [place] Comment on above: Performed By: #### L IPAS #### [facility] ([place], [place]) [address] [place] [address] ALP [Catalytic activity/Vol] 70 U/L Normal 40-130 [facility] [place] Comment on above: Performed By: #### L IPAS #### [facility] ([place], [place]) [address] [place] [address] ALT [Catalytic activity/Vol] 20 U/L Normal 0-33 [facility] ([place] [place] Comment on above: Performed By: #### L IPAS #### [facility] ([place], [place]) [address] [place] [address] Anion gap [Moles/Vol] 16 mmol/L Critically high 9-15 [facility] [place] Comment on above: Performed By: #### L IPAS #### [facility] ([place] [place]) [address] [place] [address] AST [Catalytic activity/Vol] 33 U/L Normal 0-35 [facility] ([place] [place] Comment on above: Performed By: #### L IPAS #### [facility] ([place] [place]) [address] [place] [address] Bilirubin [Mass/Vol] 0.3 mg/dL Normal 0.2-0.7 [facility] ([place] [place] Comment on above: Performed By: #### L IPAS #### [facility] ([place] [place]) [address] [place] [address] Calcium [Mass/Vol] 8.8 mg/dL Normal 8.5-9.9 [facility] ([place] [place] Comment on above: Performed By: #### L IPAS #### [facility] ([place] [place]) [address] [place] [address] Chloride [Moles/Vol] 107 mmol/L Normal 95-107 [facility] [place] Comment on above: Performed By: #### L IPAS #### [facility] ([place] [place]) [address] [place] [address] CO2 [Moles/Vol] 20 mmol/L Normal 20-31 [facility] [place] Comment on above: Performed By: #### L IPAS #### [facility] ([place] [place]) [address] [place] [address] Creatinine [Mass/Vol] 0.75 mg/dL Normal 0.50-0.90 [facility] ([place] [place] Comment on above: Performed By: #### L IPAS #### [facility] ([place], [place]) [address] [place] [address] GFR >60.0 Normal >60 [facility] ([place] [place] Comment on above: Result Comment: Adán atric [...] secretion. Performed By: #### L IPAS #### [facility] ([place], [place]) [address] [place] [address] Globulin (S) [Mass/Vol] 2.5 g/dL Normal 2.3-3.5 [facility] ([place] [place]) Comment on above: Performed By: #### L IPAS #### [facility] ([place] [place]) [address] [place] [address] Glucose [Mass/Vol] 88 mg/dL Normal 70-99 [facility] ([place] [place] Comment on above: Performed By: #### L IPAS #### [facility] ([place] [place]) [address] [place] [address] Potassium [Moles/Vol] 3.8 mmol/L Normal 3.4-4.9 [facility] ([place] [place] Comment on above: Performed By: #### L IPAS #### [facility] ([place] [place]) [address] [place] [address] Protein [Mass/Vol] 6.5 g/dL Normal 6.3-8.0 [facility] ([place] [place] Comment on above: Performed By: #### L IPAS #### [facility] ([place] [place]) [address] [place] [address] Sodium [Moles/Vol] 143 mmol/L Normal 135-144 [facility] ([place] [place] Comment on above: Performed By: #### L IPAS #### [facility] ([place] [place]) [address] [place] [address] Urea nitrogen [Mass/Vol] 11 mg/dL Normal 6-20 [facility] ([place] [place] Comment on above: Performed By: #### L IPAS #### [facility] ([place] [place]) [address] [place] [address] Lipaseon 12-14-2022 Lipase [Catalytic activity/Vol] 39 U/L Normal 12-95 [facility] ([place] [place] Comment on above: Performed By: #### L IPAS #### [facility] ([place] [place]) [address] [place] [address] POCT Venouson 12-14-2022 Creatinine [Mass/Vol] 0.8 mg/dL Normal 0.6-1.2 [facility] ([place] [place] Comment on above: Performed By: #### P GLU #### [facility] ([place], [place]) [address] [place] [address] GFR >60 Normal >60 [facility] [place] Comment on above: Result Comment: Pedi atric [...] secretion. Performed By: #### P GLU #### [facility] ([place], [place]) [address] [place] [address] POC Performed on SEE BELOW Normal [facility] ([place] [place]) Comment on above: Result Comment: Perf ormed on POC Performed By: #### P GLU #### [facility] ([place] [place]) [address] [place] [address] POC Sample Type KIAR Normal [facility] ([place] [place] Comment on above: Performed By: #### P GLU #### [facility] ([place], [place]) [address] [place] [address] CNCOon 12-10-2022 CNCO Letter Text Normal [facility] ALLIED HEALTHon 12-09-2022 ALLIED HEALTH Normal [facility] CASE MANAGEMon 12-09-2022 CASE MANAGEM Normal [facility] CBC panel Auto (Bld)on 12-09 Erythrocyte distribution width (RBC) [Ratio] 13.5 % Normal 11.5-15.0 [facility] Comment on above: Order Comment: Speci men Type: BLOOD SPECIMENOrdering Facility: [facility] Address: [facility] [place] [address] Performed By: #### 5 8410-2 ####[facility] LABIA [id number] [place] [address] [place] Hematocrit (Bld) [Volume fraction] 34.9 % Low 36.0-46.0 [facility] Comment on above: Order Comment: Speci men Type: BLOOD SPECIMENOrdering Facility: [facility] Address: [address] [place] [address] Performed By: #### 5 8410-2 ####[facility] LABIA [id number] [place] [address] [place] Hemoglobin (Bld) [Mass/Vol] 11.7 g/dL Normal 11.5-15.5 [facility] Comment on above: Order Comment: Speci men Type: BLOOD SPECIMENOrdering Facility: [facility] Address: [address] [place] [address] Performed By: #### 5 8410-2 ####[facility] LABIA [id number] [place] [address] [place] MCH (RBC) [Entitic mass] 31.0 pg Normal 26.0-34.0 [facility] Comment on above: Order Comment: Speci men Type: BLOOD SPECIMENOrdering Facility: [facility] Address: [address] [place] [address] Performed By: #### 5 8410-2 ####[facility] LABIA [id number] [place] [address] [place] MCHC (RBC) [Mass/Vol] 33.5 g/dL Normal 30.5-36.0 [facility] Comment on above: Order Comment: Speci men Type: BLOOD SPECIMENOrdering Facility: [facility] Address: [address] [place] [address] Performed By: #### 5 8410-2 ####[facility] LABIA [id number] [place] [address] [place] MCV (RBC) [Entitic vol] 92.3 fL Normal 80.0-100.0 [facility] Comment on above: Order Comment: Speci men Type: BLOOD SPECIMENOrdering Facility: [facility] Address: [address] [place] [address] Performed By: #### 5 8410-2 ####[facility] LABCLIA [id number] [place] [address] [place] Nucleated RBC (Bld) [#/Vol] 10*3/uL Normal <0.01 [facility] Comment on above: Order Comment: Speci men Type: BLOOD SPECIMENOrdering Facility: [facility] Address: [address] [place] [address] Performed By: #### 5 8410-2 ####[facility] LABCLIA [id number] [place] [address] [place] Platelet mean volume (Bld) [Entitic vol] 12.6 fL Normal 9.0-12.7 [facility] Comment on above: Order Comment: Speci men Type: BLOOD SPECIMENOrdering Facility: [facility] Address: [address] [place] [address] Performed By: #### 5 8410-2 ####[facility] LABCLIA [id number] [place] [address] [place] Platelets (Bld) [#/Vol] 172 10*3/uL Normal 150-400 [facility] Comment on above: Order Comment: Speci men Type: BLOOD SPECIMENOrdering Facility: [facility] Address: [address] [place] [address] Performed By: #### 5 8410-2 ####[facility] LABCLIA [id number] [place] [address] [place] RBC (Bld) [#/Vol] 3.78 10*6/uL Low 3.90-5.20 [facility] Comment on above: Order Comment: Speci men Type: BLOOD SPECIMENOrdering Facility: [facility] Address: [address] [place] [address] Performed By: #### 5 8410-2 ####[facility] LABCLIA [id number] [place] [address] [place] WBC (Bld) [#/Vol] 3.25 10*3/uL Low 3.70-11.00 [facility] Comment on above: Order Comment: Speci men Type: BLOOD SPECIMENOrdering Facility: [facility] Address: [address] [place] [address] Performed By: #### 5 8410-2 ####[facility] LABCLIA [id number] [place] [address] [place] CNDSon 12-09-2022 CNDS Normal [facility] CNPNon 12-09-2022 CNPN Normal [facility] CONSULT PROGon 12-09-2022 CONSULT PROG Normal [facility] Comprehensive metabolic 2000 panelon 12-09-2022 Albumin [Mass/Vol] 3.6 g/dL Low 3.9-4.9 [facility] Comment on above: Order Comment: Speci men Type: BLOOD SPECIMENOrdering Facility: [facility] Address: [address] [place] [address] Performed By: #### 2 777-1, , ####[facility] LABCLIA [id number] [place] [address] [place] ALP [Catalytic activity/Vol] 59 U/L Normal 34-123 [facility] Comment on above: Order Comment: Speci men Type: BLOOD SPECIMENOrdering Facility: [facility] Address: [address] [place] [address] Performed By: #### 2 777-1, , ####[facility] LABCLIA [id number] [place] [address] [place] ALT [Catalytic activity/Vol] 13 U/L Normal 7-38 [facility] Comment on above: Order Comment: Speci men Type: BLOOD SPECIMENOrdering Facility: [facility] Address: [address] [place] [address] Performed By: #### 2 777-1, , ####[facility] LABCLIA [id number] [place] [address] [place] Anion gap [Moles/Vol] 9 mmol/L Normal 9-18 [facility] Comment on above: Order Comment: Speci men Type: BLOOD SPECIMENOrdering Facility: [facility] Address: [address] [place] [address] Performed By: #### 2 777-1, , ####[facility] LABCLIA [id number] [place] [address] [place] AST [Catalytic activity/Vol] 22 U/L Normal 13-35 [facility] Comment on above: Order Comment: Speci men Type: BLOOD SPECIMENOrdering Facility: [facility] Address: [address] [place] [address] Performed By: #### 2 777-1, , ####[facility] LABCLIA [id number] [place] [address] [place] Bilirubin [Mass/Vol] 0.2 mg/dL Normal 0.2-1.3 [facility] Comment on above: Order Comment: Speci men Type: BLOOD SPECIMENOrdering Facility: [facility] Address: [address] [place] [address] Performed By: #### 2 777-1, , ####[facility] LABCLIA [id number] [address] [address] [place] Calcium [Mass/Vol] 8.7 mg/dL Normal 8.5-10.2 [facility] Comment on above: Order Comment: Speci men Type: BLOOD SPECIMENOrdering Facility: [facility] Address: [address] [place] [address] Performed By: #### 2 777-1, , ####[facility] LABCLIA [id number] [place] [address] [place] Chloride [Moles/Vol] 108 mmol/L High 97-105 [facility] Comment on above: Order Comment: Speci men Type: BLOOD SPECIMENOrdering Facility: [facility] Address: [address] [place] [address] Performed By: #### 2 777-1, , ####[facility] LABCLIA [id number] [place] [address] [place] CO2 [Moles/Vol] 23 mmol/L Normal 22-30 [facility] Comment on above: Order Comment: Speci men Type: BLOOD SPECIMENOrdering Facility: [facility] Address: [address] [place] [address] Performed By: #### 2 777-1, , ####[facility] LABIA [id number] [place] [address] [place] Creatinine [Mass/Vol] 0.61 mg/dL Normal 0.58-0.96 [facility] Comment on above: Order Comment: Speci men Type: BLOOD SPECIMENOrdering Facility: [facility] Address: [address] [place] [address] Performed By: #### 2 777-1, , ####[facility] LABIA [id number] [place] [id number] [place] Creatinine and Glomerular filtration rate.predicted panel (S/P/Bld) 121 mL/min/1.73m??? Normal >=60 [facility] Comment on above: Order Comment: Speci men Type: BLOOD SPECIMENOrdering Facility: [facility] Address: [facility] [place] [address] Result Comment: Jessica mated Glomerular Filtration Rate [...] By: #### 2 777-1, , ####[facility] LABCLIA [id number] [place] [address] [place] Glucose [Mass/Vol] 79 mg/dL Normal 74-99 [facility] Comment on above: Order Comment: Geraldo marrero Type: BLOOD SPECIMENOrdering Facility: [facility] Address: [address] [place] [address] Result Comment: The [place] [employer] (ADA) provides guidance for cutoff [...] Standards of Medical Care in Diabetes 2016, [place] [employer]. Diabetes Care. 2016.39(Suppl 1). Performed By: #### 2 777-1, , ####[facility] LABIA [id number] [place] [id number] [place] Potassium [Moles/Vol] 4.2 mmol/L Normal 3.7-5.1 [facility] Comment on above: Order Comment: Specmichael men Type: BLOOD SPECIMENOrdering Facility: [facility] Address: [address] [place] [address] Performed By: #### 2 777-1, , ####[facility] LABCLIA [id number] [address] [address] [place] Protein [Mass/Vol] 5.8 g/dL Low 6.3-8.0 [facility] Comment on above: Order Comment: Speci men Type: BLOOD SPECIMENOrdering Facility: [facility] Address: [address] [place] [address] Performed By: #### 2 777-1, , ####[facility] LABIA [id number] [place] [address] [place] Sodium [Moles/Vol] 140 mmol/L Normal 136-144 [facility] Comment on above: Order Comment: Speci men Type: BLOOD SPECIMENOrdering Facility: [facility] Address: [address] [place] [address] Performed By: #### 2 777-1, , ####[facility] LABIA [id number] [place] [address] [place] Urea nitrogen [Mass/Vol] 16 mg/dL Normal 7-21 [facility] Comment on above: Order Comment: Speci men Type: BLOOD SPECIMENOrdering Facility: [facility] Address: [address] [place] [address] Performed By: #### 2 777-1, , ####[facility] LABIA [id number] [address] [address] [place] Magnesium SerPl-mCncon 12-09 Magnesium [Mass/Vol] 2.0 mg/dL Normal 1.7-2.3 [facility] Comment on above: Order Comment: Speci men Type: BLOOD SPECIMENOrdering Facility: [facility] Address: [address] [place] [address] Performed By: #### 2 777-1, , ####[facility] LABCLIA [id number] [place] [id number] [place] NURSING PROGon 12-09-2022 NURSING PROG Normal [facility] PT EDon 12-09-2022 PT ED Normal [facility] Phosphate SerPl-mCncon 12-09 Phosphate [Mass/Vol] 1.8 mg/dL Low 2.7-4.8 [facility] Comment on above: Order Comment: Speci men Type: BLOOD SPECIMENOrdering Facility: [facility] Address: [address] [place] [address] Result Comment: Resu lt rechecked. Performed By: #### 2 777-1, , ####[facility] LABCLIA [id number] [place] [address] [place] ALLIED HEALTHon 12-08-2022 ALLIED HEALTH Normal [facility] CBC panel Auto (Bld)on 12-08 Erythrocyte distribution width (RBC) [Ratio] 13.4 % Normal 11.5-15.0 [facility] Comment on above: Order Comment: Speci men Type: BLOOD SPECIMENOrdering Facility: [facility] Address: [address] [place] [address] Performed By: #### 5 8410-2 ####[facility] LABCLIA [id number] [place] [address] [place] Hematocrit (Bld) [Volume fraction] 32.5 % Low 36.0-46.0 [facility] Comment on above: Order Comment: Speci men Type: BLOOD SPECIMENOrdering Facility: [facility] Address: [address] [place] [address] Performed By: #### 5 8410-2 ####[facility] LABCLIA [id number] [place] [address] [place] Hemoglobin (Bld) [Mass/Vol] 11.1 g/dL Low 11.5-15.5 [facility] Comment on above: Order Comment: Speci men Type: BLOOD SPECIMENOrdering Facility: [facility] Address: [address] [place] [address] Performed By: #### 5 8410-2 ####[facility] LABIA [id number] [place] [address] [place] MCH (RBC) [Entitic mass] 31.2 pg Normal 26.0-34.0 [facility] Comment on above: Order Comment: Speci men Type: BLOOD SPECIMENOrdering Facility: [facility] Address: [address] [place] [address] Performed By: #### 5 8410-2 ####[facility] LABIA [id number] [place] [address] [place] MCHC (RBC) [Mass/Vol] 34.2 g/dL Normal 30.5-36.0 [facility] Comment on above: Order Comment: Speci men Type: BLOOD SPECIMENOrdering Facility: [facility] Address: [address] [place] [address] Performed By: #### 5 8410-2 ####[facility] LABUNIV[facility] [id number] [place] [address] [place] MCV (RBC) [Entitic vol] 91.3 fL Normal 80.0-100.0 [facility] Comment on above: Order Comment: Speci men Type: BLOOD SPECIMENOrdering Facility: [facility] Address: [address] [place] [address] Performed By: #### 5 8410-2 ####[facility] LABIA [id number] [place] [address] [place] Nucleated RBC (Bld) [#/Vol] 10*3/uL Normal <0.01 [facility] Comment on above: Order Comment: Speci men Type: BLOOD SPECIMENOrdering Facility: [facility] Address: [address] [place] [address] Performed By: #### 5 8410-2 ####[facility] LABCLIA [id number] [place] [address] [place] Platelet mean volume (Bld) [Entitic vol] 12.4 fL Normal 9.0-12.7 [facility] Comment on above: Order Comment: Speci men Type: BLOOD SPECIMENOrdering Facility: [facility] Address: [address] [place] [address] Performed By: #### 5 8410-2 ####[facility] LABIA [id number] [place] [address] [place] Platelets (Bld) [#/Vol] 161 10*3/uL Normal 150-400 [facility] Comment on above: Order Comment: Speci men Type: BLOOD SPECIMENOrdering Facility: [facility] Address: [address] [place] [address] Performed By: #### 5 8410-2 ####[facility] LABIA [id number] [place] [address] [place] RBC (Bld) [#/Vol] 3.56 10*6/uL Low 3.90-5.20 [facility] Comment on above: Order Comment: Speci men Type: BLOOD SPECIMENOrdering Facility: [facility] Address: [address] [place] [address] Performed By: #### 5 8410-2 ####[facility] LABIA [id number] [place] [address] [place] WBC (Bld) [#/Vol] 2.94 10*3/uL Low 3.70-11.00 [facility] Comment on above: Order Comment: Speci men Type: BLOOD SPECIMENOrdering Facility: [facility] Address: [address] [place] [address] Performed By: #### 5 8410-2 ####[facility] LABIA [id number] [place] [address] [place] CNPNon 12-08-2022 CNPN Normal [facility] CONSULT PROGon 12-08-2022 CONSULT PROG Normal [facility] Comprehensive metabolic 2000 panelon 12-08-2022 Albumin [Mass/Vol] 3.1 g/dL Low 3.9-4.9 [facility] Comment on above: Order Comment: Speci men Type: BLOOD SPECIMENOrdering Facility: [facility] Address: [address] [place] [address] Performed By: #### 2 4323-8, 2776-02, ####[facility] LABCLIA [id number] [place] [address] [place] ALP [Catalytic activity/Vol] 57 U/L Normal 34-123 [facility] Comment on above: Order Comment: Speci men Type: BLOOD SPECIMENOrdering Facility: [facility] Address: [address] [place] [address] Performed By: #### 2 4323-8, 2776-02, ####[facility] LABCLIA [id number] [place] [address] [place] ALT [Catalytic activity/Vol] 16 U/L Normal 7-38 [facility] Comment on above: Order Comment: Speci men Type: BLOOD SPECIMENOrdering Facility: [facility] Address: [address] [place] [address] Performed By: #### 2 4323-8, 2776-02, ####[facility] LABCLIA [id number] [address] [address] [place] Anion gap [Moles/Vol] 9 mmol/L Normal 9-18 [facility] Comment on above: Order Comment: Speci men Type: BLOOD SPECIMENOrdering Facility: [facility] Address: [address] [place] [address] Performed By: #### 2 4323-8, 27708-15, ####[facility] LABCLIA [id number] [place] [address] [place] AST [Catalytic activity/Vol] 26 U/L Normal 13-35 [facility] Comment on above: Order Comment: Speci men Type: BLOOD SPECIMENOrdering Facility: [facility] Address: [address] [place] [address] Performed By: #### 2 4323-8, 2776-02, ####[facility] LABCLIA [id number] [place] [address] [place] Bilirubin [Mass/Vol] 0.2 mg/dL Normal 0.2-1.3 [facility] Comment on above: Order Comment: Speci men Type: BLOOD SPECIMENOrdering Facility: [facility] Address: [address] [place] [address] Performed By: #### 2 4323-8, 2776-02, ####[facility] LABCLIA [id number] [place] [address] [place] Calcium [Mass/Vol] 8.2 mg/dL Low 8.5-10.2 [facility] Comment on above: Order Comment: Speci men Type: BLOOD SPECIMENOrdering Facility: [facility] Address: [address] [place] [address] Performed By: #### 2 4323-8, 2776-02, ####[facility] LABCLIA [id number] [place] [address] [place] Chloride [Moles/Vol] 109 mmol/L High 97-105 [facility] Comment on above: Order Comment: Speci men Type: BLOOD SPECIMENOrdering Facility: [facility] Address: [address] [place] [address] Performed By: #### 2 4323-8, 2776-02, ####[facility] LABCLIA [id number] [place] [id number] [place] CO2 [Moles/Vol] 23 mmol/L Normal 22-30 [facility] Comment on above: Order Comment: Speci men Type: BLOOD SPECIMENOrdering Facility: [facility] Address: [place] [address] Performed By: #### 2 4323-8, 27708-15, ####[facility] LABCLIA [id number] [place] [address] [place] Creatinine [Mass/Vol] 0.73 mg/dL Normal 0.58-0.96 [facility] Comment on above: Order Comment: Speci men Type: BLOOD SPECIMENOrdering Facility: [facility] Address: [address] [place] [address] Performed By: #### 2 4323-8, 2776-02, ####[facility] LABCLIA [id number] [place] [address] [place] Creatinine and Glomerular filtration rate.predicted panel (S/P/Bld) 112 mL/min/1.73m??? Normal >=60 [facility] Comment on above: Order Comment: Speci men Type: BLOOD SPECIMENOrdering Facility: [facility] Address: [address] [place] [address] Result Comment: Jessica mated Glomerular Filtration Rate [...] actual GFR. Performed By: #### 2 4323-8, 27708-15, ####[facility] LABCLIA [id number] [place] [address] [place] Glucose [Mass/Vol] 119 mg/dL High 74-99 [facility] Comment on above: Order Comment: Speci men Type: BLOOD SPECIMENOrdering Facility: [facility] Address: [address] [place] [address] Result Comment: The [place] [employer] (ADA) provides guidance for cutoff [...] Standards of Medical Care in Diabetes 2016, [place] [employer]. Diabetes Care. 2016.39(Suppl 1). Performed By: #### 2 4323-8, 2776-02, ####[facility] LABCLIA [id number] [place] [address] [place] Potassium [Moles/Vol] 3.5 mmol/L Low 3.7-5.1 [facility] Comment on above: Order Comment: Speci men Type: BLOOD SPECIMENOrdering Facility: [facility] Address: [address] [place] [address] Performed By: #### 2 4323-8, 2776-02, ####[facility] LABIA [id number] [place] [address] [place] Protein [Mass/Vol] 5.2 g/dL Low 6.3-8.0 [facility] Comment on above: Order Comment: Speci men Type: BLOOD SPECIMENOrdering Facility: [facility] Address: [address] [place] [address] Performed By: #### 2 4323-8, 2776-02, ####[facility] LABCLIA [id number] [place] [id number] [place] Sodium [Moles/Vol] 141 mmol/L Normal 136-144 [facility] Comment on above: Order Comment: Speci men Type: BLOOD SPECIMENOrdering Facility: [facility] Address: [address] [place] [id number] Performed By: #### 2 4323-8, 27708-15, ####[facility] LABCLIA [id number] [place] [id number] [place] Urea nitrogen [Mass/Vol] 10 mg/dL Normal 7-21 [facility] Comment on above: Order Comment: Speci men Type: BLOOD SPECIMENOrdering Facility: [facility] Address: [address] [place] [address] Performed By: #### 2 4323-8, 27708-15, ####[facility] LABIA [id number] [place] [address] [place] Magnesium SerPl-mCncon 12-08 Magnesium [Mass/Vol] 2.1 mg/dL Normal 1.7-2.3 [facility] Comment on above: Order Comment: Speci men Type: BLOOD SPECIMENOrdering Facility: [facility] Address: [address] [place] [address] Performed By: #### 2 4323-8, 2776-02, ####[facility] LABIA [id number] [place] [address] [place] Phosphate SerPl-mCncon 12-08 Phosphate [Mass/Vol] 4.7 mg/dL Normal 2.7-4.8 [facility] Comment on above: Order Comment: Speci men Type: BLOOD SPECIMENOrdering Facility: [facility] Address: [address] [place] [address] Performed By: #### 2 4323-8, 27708-15, ####[facility] LABIA [id number] [place] [id number] [place] CBC panel Auto (Bld)on 12-07 Erythrocyte distribution width (RBC) [Ratio] 13.2 % Normal 11.5-15.0 [facility] Comment on above: Order Comment: Speci men Type: BLOOD SPECIMENOrdering Facility: [facility] Address: [address] [place] [address] Performed By: #### 5 8410-2 ####[facility] LABIA [id number] [place] [address] [place] Hematocrit (Bld) [Volume fraction] 33.9 % Low 36.0-46.0 [facility] Comment on above: Order Comment: Speci men Type: BLOOD SPECIMENOrdering Facility: [facility] Address: [address] [place] [address] Performed By: #### 5 8410-2 ####[facility] LABIA [id number] [place] [address] [place] Hemoglobin (Bld) [Mass/Vol] 11.6 g/dL Normal 11.5-15.5 [facility] Comment on above: Order Comment: Speci men Type: BLOOD SPECIMENOrdering Facility: [facility] Address: [address] [place] [address] Performed By: #### 5 8410-2 ####[facility] LABIA [id number] [place] [address] [place] MCH (RBC) [Entitic mass] 30.9 pg Normal 26.0-34.0 [facility] Comment on above: Order Comment: Speci men Type: BLOOD SPECIMENOrdering Facility: [facility] Address: [address] [place] [address] Performed By: #### 5 8410-2 ####[facility] LABIA [id number] [place] [address] [place] MCHC (RBC) [Mass/Vol] 34.2 g/dL Normal 30.5-36.0 [facility] Comment on above: Order Comment: Speci men Type: BLOOD SPECIMENOrdering Facility: [facility] Address: [address] [place] [address] Performed By: #### 5 8410-2 ####[facility] LABIA [id number] [place] [address] [place] MCV (RBC) [Entitic vol] 90.4 fL Normal 80.0-100.0 [facility] Comment on above: Order Comment: Speci men Type: BLOOD SPECIMENOrdering Facility: [facility] Address: [address] [place] [address] Performed By: #### 5 8410-2 ####[facility] LABIA [id number] [place] [address] [place] Nucleated RBC (Bld) [#/Vol] 10*3/uL Normal <0.01 [facility] Comment on above: Order Comment: Speci men Type: BLOOD SPECIMENOrdering Facility: [facility] Address: [address] [place] [address] Performed By: #### 5 8410-2 ####[facility] LABIA [id number] [place] [address] [place] Platelet mean volume (Bld) [Entitic vol] 12.5 fL Normal 9.0-12.7 [facility] Comment on above: Order Comment: Speci men Type: BLOOD SPECIMENOrdering Facility: [facility] Address: [address] [place] [address] Performed By: #### 5 8410-2 ####[facility] LABIA [id number] [place] [address] [place] Platelets (Bld) [#/Vol] 175 10*3/uL Normal 150-400 [facility] Comment on above: Order Comment: Speci men Type: BLOOD SPECIMENOrdering Facility: [facility] Address: [address] [place] [address] Performed By: #### 5 8410-2 ####[facility] LABIA [id number] [place] [address] [place] RBC (Bld) [#/Vol] 3.75 10*6/uL Low 3.90-5.20 [facility] Comment on above: Order Comment: Speci men Type: BLOOD SPECIMENOrdering Facility: [facility] Address: [address] [place] [address] Performed By: #### 5 8410-2 ####[facility] LABCLIA [id number] [place] [address] [place] WBC (Bld) [#/Vol] 2.61 10*3/uL Low 3.70-11.00 [facility] Comment on above: Order Comment: Speci men Type: BLOOD SPECIMENOrdering Facility: [facility] Address: [address] [place] [address] Performed By: #### 5 8410-2 ####[facility] LABCLIA [id number] [place] [address] [place] CONSULTon 12-07-2022 CONSULT Normal [facility] CONSULT PROGon 12-07-2022 CONSULT PROG Normal [facility] Comprehensive metabolic 2000 panelon 12-07-2022 Albumin [Mass/Vol] 3.4 g/dL Low 3.9-4.9 [facility] Comment on above: Order Comment: Speci men Type: BLOOD SPECIMENOrdering Facility: [facility] Address: [address] [place] [address] Performed By: #### 2 4323-8 ####[facility] LABCLIA [id number] [place] [address] [place] ALP [Catalytic activity/Vol] 62 U/L Normal 34-123 [facility] Comment on above: Order Comment: Speci men Type: BLOOD SPECIMENOrdering Facility: [facility] Address: [address] [place] [address] Performed By: #### 2 4323-8 ####[facility] LABCLIA [id number] [place] [address] [place] ALT [Catalytic activity/Vol] 19 U/L Normal 7-38 [facility] Comment on above: Order Comment: Speci men Type: BLOOD SPECIMENOrdering Facility: [facility] Address: [address] [place] [address] Performed By: #### 2 4323-8 ####[facility] LABCLIA [id number] [place] [address] [place] Anion gap [Moles/Vol] 9 mmol/L Normal 9-18 [facility] Comment on above: Order Comment: Speci men Type: BLOOD SPECIMENOrdering Facility: [facility] Address: [address] [place] [address] Performed By: #### 2 4323-8 ####[facility] LABCLIA [id number] [place] [address] [place] AST [Catalytic activity/Vol] 31 U/L Normal 13-35 [facility] Comment on above: Order Comment: Speci men Type: BLOOD SPECIMENOrdering Facility: [facility] Address: [address] [place] [address] Performed By: #### 2 4323-8 ####[facility] LABCLIA [id number] [place] [address] [place] Bilirubin [Mass/Vol] 0.3 mg/dL Normal 0.2-1.3 [facility] Comment on above: Order Comment: Speci men Type: BLOOD SPECIMENOrdering Facility: [facility] Address: [address] [place] [address] Performed By: #### 2 4323-8 ####[facility] LABCLIA [id number] [place] [address] [place] Calcium [Mass/Vol] 8.6 mg/dL Normal 8.5-10.2 [facility] Comment on above: Order Comment: Speci men Type: BLOOD SPECIMENOrdering Facility: [facility] Address: [address] [place] [address] Performed By: #### 2 4323-8 ####[facility] LABCLIA [id number] [place] [address] [place] Chloride [Moles/Vol] 108 mmol/L High 97-105 [facility] Comment on above: Order Comment: Speci men Type: BLOOD SPECIMENOrdering Facility: [facility] Address: [address] [place] [address] Performed By: #### 2 4323-8 ####[facility] LABCLIA [id number] [place] [address] [place] CO2 [Moles/Vol] 22 mmol/L Normal 22-30 [facility] Comment on above: Order Comment: Speci men Type: BLOOD SPECIMENOrdering Facility: [facility] Address: [address] [place] [address] Performed By: #### 2 4323-8 ####[facility] LABCLIA [id number] [place] [address] [place] Creatinine [Mass/Vol] 0.85 mg/dL Normal 0.58-0.96 [facility] Comment on above: Order Comment: Speci men Type: BLOOD SPECIMENOrdering Facility: [facility] Address: [address] [place] [address] Performed By: #### 2 4323-8 ####[facility] LABCLIA [id number] [place] [address] [place] Creatinine and Glomerular filtration rate.predicted panel (S/P/Bld) 93 mL/min/1.73m??? Normal >=60 [facility] Comment on above: Order Comment: Speci men Type: BLOOD SPECIMENOrdering Facility: [facility] Address: [address] [place] [address] Result Comment: Jessica mated Glomerular Filtration Rate [...] Performed By: #### 2 4323-8 ####[facility] LABIA [id number] [place] [address] [place] Glucose [Mass/Vol] 80 mg/dL Normal 74-99 [facility] Comment on above: Order Comment: Geraldo marrero Type: BLOOD SPECIMENOrdering Facility: [facility] Address: [address] [place] [address] Result Comment: The [place] [employer] (ADA) provides guidance for cutoff [...] Standards of Medical Care in Diabetes 2016, [place] [employer]. Diabetes Care. 2016.39(Suppl 1). Performed By: #### 2 4323-8 ####[facility] LABIA [id number] [place] [address] [place] Potassium [Moles/Vol] 3.7 mmol/L Normal 3.7-5.1 [facility] Comment on above: Order Comment: Geraldo marrero Type: BLOOD SPECIMENOrdering Facility: [facility] Address: [address] [place] [address] Performed By: #### 2 4323-8 ####[facility]UN[facility] [id number] [place] [address] [place] Protein [Mass/Vol] 5.5 g/dL Low 6.3-8.0 [facility] Comment on above: Order Comment: Geraldo marrero Type: BLOOD SPECIMENOrdering Facility: [facility] Address: [address] [place] [address] Performed By: #### 2 4323-8 ####[facility] LABCLIA [id number] [place] [address] [place] Sodium [Moles/Vol] 139 mmol/L Normal 136-144 [facility] Comment on above: Order Comment: Speci men Type: BLOOD SPECIMENOrdering Facility: [facility] Address: [address] [place] [address] Performed By: #### 2 4323-8 ####[facility] LABCLIA [id number] [place] [address] [place] Urea nitrogen [Mass/Vol] 12 mg/dL Normal 7-21 [facility] Comment on above: Order Comment: Speci men Type: BLOOD SPECIMENOrdering Facility: [facility] Address: [address] [place] [address] Performed By: #### 2 4323-8 ####[facility] LABCLIA [id number] [place] [address] [place] NURSING PROGon 12-07-2022 NURSING PROG Normal [facility] XR CHEST 1V PORT POST PICC - NBon 12-07-2022 XR CHEST 1V PORT POST PICC -NB Normal [facility] CASE MGT INIT ASSESon 2022 CASE MGT INIT ASSES Normal [facility] CBC W Auto Differential pane l (Bld)on 12-06-2022 Basophils (Bld) [#/Vol] 10*3/uL Normal <0.11 [facility] Comment on above: Order Comment: Speci men Type: BLOOD SPECIMENOrdering Facility: [facility] Address: [address] [place] [address] Performed By: #### 5 7021-8 ####[facility] LABCLIA [id number] [place] [address] [place] Basophils/100 WBC (Bld) 0.7 % Normal [facility] Comment on above: Order Comment: Speci men Type: BLOOD SPECIMENOrdering Facility: [facility] Address: [address] [place] [address] Performed By: #### 5 7021-8 ####[facility] LABCLIA [id number] [place] [address] [place] Differential cell count method Nom (Bld) Auto Normal [facility] Comment on above: Order Comment: Speci men Type: BLOOD SPECIMENOrdering Facility: [facility] Address: [address] [place] [address] Performed By: #### 5 7021-8 ####[facility] LABCLIA [id number] [place] [address] [place] Eosinophils (Bld) [#/Vol] 0.09 10*3/uL Normal <0.46 [facility] Comment on above: Order Comment: Speci men Type: BLOOD SPECIMENOrdering Facility: [facility] Address: [address] [place] [address] Performed By: #### 5 7021-8 ####[facility] LABCLIA [id number] [place] [address] [place] Eosinophils/100 WBC (Bld) 2.9 % Normal [facility] Comment on above: Order Comment: Speci men Type: BLOOD SPECIMENOrdering Facility: [facility] Address: [address] [place] [address] Performed By: #### 5 7021-8 ####[facility] LABCLIA [id number] [place] [address] [place] Erythrocyte distribution width (RBC) [Ratio] 13.2 % Normal 11.5-15.0 [facility] Comment on above: Order Comment: Speci men Type: BLOOD SPECIMENOrdering Facility: [facility] Address: [address] [place] [address] Performed By: #### 5 7021-8 ####[facility] LABCLIA [id number] [place] [address] [place] Hematocrit (Bld) [Volume fraction] 33.7 % Low 36.0-46.0 [facility] Comment on above: Order Comment: Speci men Type: BLOOD SPECIMENOrdering Facility: [facility] Address: [address] [place] [address] Performed By: #### 5 7021-8 ####[facility] LABCLIA [id number] [place] [address] [place] Hemoglobin (Bld) [Mass/Vol] 11.6 g/dL Normal 11.5-15.5 [facility] Comment on above: Order Comment: Speci men Type: BLOOD SPECIMENOrdering Facility: [facility] Address: [address] [place] [address] Performed By: #### 5 7021-8 ####[facility] LABCLIA [id number] [place] [address] [place] Immature granulocytes (Bld) [#/Vol] 10*3/uL Normal <0.10 [facility] Comment on above: Order Comment: Speci men Type: BLOOD SPECIMENOrdering Facility: [facility] Address: [address] [place] [address] Performed By: #### 5 7021-8 ####[facility] LABCLIA [id number] [place] [address] [place] Immature granulocytes/100 WBC (Bld) 0.3 % Normal [facility] Comment on above: Order Comment: Speci men Type: BLOOD SPECIMENOrdering Facility: [facility] Address: [address] [place] [address] Performed By: #### 5 7021-8 ####[facility] LABCLIA [id number] [place] [address] [place] Lymphocytes (Bld) [#/Vol] 1.31 10*3/uL Normal 1.00-4.00 [facility] Comment on above: Order Comment: Speci men Type: BLOOD SPECIMENOrdering Facility: [facility] Address: [address] [place] [address] Performed By: #### 5 7021-8 ####[facility] LABCLIA [id number] [place] [address] [place] Lymphocytes/100 WBC (Bld) 42.8 % Normal [facility] Comment on above: Order Comment: Speci men Type: BLOOD SPECIMENOrdering Facility: [facility] Address: [address] [place] [address] Performed By: #### 5 7021-8 ####[facility] LABCLIA [id number] [place] [address] [place] MCH (RBC) [Entitic mass] 30.8 pg Normal 26.0-34.0 [facility] Comment on above: Order Comment: Speci men Type: BLOOD SPECIMENOrdering Facility: [facility] Address: [address] [place] [address] Performed By: #### 5 7021-8 ####[facility] LABIA [id number] [place] [address] [place] MCHC (RBC) [Mass/Vol] 34.4 g/dL Normal 30.5-36.0 [facility] Comment on above: Order Comment: Speci men Type: BLOOD SPECIMENOrdering Facility: [facility] Address: [address] [place] [address] Performed By: #### 5 7021-8 ####[facility] LABCLIA [id number] [place] [address] [place] MCV (RBC) [Entitic vol] 89.4 fL Normal 80.0-100.0 [facility] Comment on above: Order Comment: Speci men Type: BLOOD SPECIMENOrdering Facility: [facility] Address: [address] [place] [address] Performed By: #### 5 7021-8 ####[facility] LABCLIA [id number] [place] [address] [place] Monocytes (Bld) [#/Vol] 0.24 10*3/uL Normal <0.87 [facility] Comment on above: Order Comment: Speci men Type: BLOOD SPECIMENOrdering Facility: [facility] Address: [address] [place] [address] Performed By: #### 5 7021-8 ####[facility] LABCLIA [id number] [place] [address] [place] Monocytes/100 WBC (Bld) 7.8 % Normal [facility] Comment on above: Order Comment: Speci men Type: BLOOD SPECIMENOrdering Facility: [facility] Address: [address] [place] [address] Performed By: #### 5 7021-8 ####[facility] LABCLIA [id number] [place] [address] [place] Neutrophils (Bld) [#/Vol] 1.39 10*3/uL Low 1.45-7.50 [facility] Comment on above: Order Comment: Speci men Type: BLOOD SPECIMENOrdering Facility: [facility] Address: [address] [place] [address] Performed By: #### 5 7021-8 ####[facility] LABCLIA [id number] [place] [address] [place] Neutrophils/100 WBC (Bld) 45.5 % Normal [facility] Comment on above: Order Comment: Speci men Type: BLOOD SPECIMENOrdering Facility: [facility] Address: [address] [place] [address] Performed By: #### 5 7021-8 ####[facility] LABCLIA [id number] [place] [address] [place] Nucleated RBC (Bld) [#/Vol] 10*3/uL Normal <0.01 [facility] Comment on above: Order Comment: Speci men Type: BLOOD SPECIMENOrdering Facility: [facility] Address: [facility] [place] [address] Performed By: #### 5 7021-8 ####[facility] LABIA [id number] [place] [address] [place] Nucleated RBC/100 WBC (Bld) [Ratio] 0.0 /100 WBC Normal [facility] Comment on above: Order Comment: Speci men Type: BLOOD SPECIMENOrdering Facility: [facility] Address: [address] [place] [address] Performed By: #### 5 7021-8 ####[facility] LABIA [id number] [place] [address] [place] Platelet mean volume (Bld) [Entitic vol] 11.9 fL Normal 9.0-12.7 [facility] Comment on above: Order Comment: Speci men Type: BLOOD SPECIMENOrdering Facility: [facility] Address: [address] [place] [address] Performed By: #### 5 7021-8 ####[facility] LABIA [id number] [place] [address] [place] Platelets (Bld) [#/Vol] 163 10*3/uL Normal 150-400 [facility] Comment on above: Order Comment: Speci men Type: BLOOD SPECIMENOrdering Facility: [facility] Address: [address] [place] [address] Performed By: #### 5 7021-8 ####[facility] LABCLIA [id number] [place] [address] [place] RBC (Bld) [#/Vol] 3.77 10*6/uL Low 3.90-5.20 [facility] Comment on above: Order Comment: Speci men Type: BLOOD SPECIMENOrdering Facility: [facility] Address: [address] [place] [address] Performed By: #### 5 7021-8 ####[facility] LABCLIA [id number] [address] [address] [place] WBC (Bld) [#/Vol] 3.06 10*3/uL Low 3.70-11.00 [facility] Comment on above: Order Comment: Speci men Type: BLOOD SPECIMENOrdering Facility: [facility] Address: [address] [place] [address] Performed By: #### 5 7021-8 ####[facility] LABCLIA [id number] [place] [address] [place] CTA ABD/PELV W IVCONon 12-06 CTA ABD/PELV W IVCON Normal [facility] Comprehensive metabolic 2000 panelon 12-06-2022 Albumin [Mass/Vol] 3.6 g/dL Low 3.9-4.9 [facility] Comment on above: Order Comment: Speci men Type: BLOOD SPECIMENOrdering Facility: [facility] Address: [address] [place] [address] Performed By: #### 2 4323-8, 3040-3, 2777-1, 80298-3 ####[facility] LABCLIA [id number] [place] [address] [place] ALP [Catalytic activity/Vol] 61 U/L Normal 34-123 [facility] Comment on above: Order Comment: Speci men Type: BLOOD SPECIMENOrdering Facility: [facility] Address: [address] [place] [address] Performed By: #### 2 4323-8, 3040-3, 2777-1, 45578-0 ####[facility] LABCLIA [id number] [place] [address] [place] ALT [Catalytic activity/Vol] 16 U/L Normal 7-38 [facility] Comment on above: Order Comment: Speci men Type: BLOOD SPECIMENOrdering Facility: [facility] Address: [address] [place] [address] Performed By: #### 2 4323-8, 0-3, 2776-02, ####[facility] LABCLIA [id number] [address] [address] [place] Anion gap [Moles/Vol] 10 mmol/L Normal 9-18 [facility] Comment on above: Order Comment: Speci men Type: BLOOD SPECIMENOrdering Facility: [facility] Address: [address] [place] [address] Performed By: #### 2 4323-8, 3039-3, 2776-02, ####[facility] LABCLIA [id number] [place] [address] [place] AST [Catalytic activity/Vol] 29 U/L Normal 13-35 [facility] Comment on above: Order Comment: Speci men Type: BLOOD SPECIMENOrdering Facility: [facility] Address: [address] [place] [address] Performed By: #### 2 4323-8, 3039-3, 2776-02, ####[facility] LABCLIA [id number] [address] [address] [place] Bilirubin [Mass/Vol] 0.2 mg/dL Normal 0.2-1.3 [facility] Comment on above: Order Comment: Speci men Type: BLOOD SPECIMENOrdering Facility: [facility] Address: [address] [place] [address] Performed By: #### 2 4323-8, 3039-3, 2776-02, ####[facility] LABCLIA [id number] [address] [address] [place] Calcium [Mass/Vol] 8.2 mg/dL Low 8.5-10.2 [facility] Comment on above: Order Comment: Speci men Type: BLOOD SPECIMENOrdering Facility: [facility] Address: [address] [place] [address] Performed By: #### 2 4323-8, 3040-3, 2776-02, ####[facility] LABIA [id number] [address] [address] [place] Chloride [Moles/Vol] 109 mmol/L High 97-105 [facility] Comment on above: Order Comment: Speci men Type: BLOOD SPECIMENOrdering Facility: [facility] Address: [address] [place] [address] Performed By: #### 2 4323-8, 3040-3, 2776-02, ####[facility] LABIA [id number] [place] [address] [place] CO2 [Moles/Vol] 21 mmol/L Low 22-30 [facility] Comment on above: Order Comment: Speci men Type: BLOOD SPECIMENOrdering Facility: [facility] Address: [address] [place] [address] Performed By: #### 2 4323-8, 3040-3, 2776-02, ####[facility] LABIA [id number] [place] [address] [place] Creatinine [Mass/Vol] 0.66 mg/dL Normal 0.58-0.96 [facility] Comment on above: Order Comment: Speci men Type: BLOOD SPECIMENOrdering Facility: [facility] Address: [address] [place] [address] Performed By: #### 2 4323-8, 3040-3, 2776-02, ####[facility] LABIA [id number] [address] [address] [place] Creatinine and Glomerular filtration rate.predicted panel (S/P/Bld) 119 mL/min/1.73m??? Normal >=60 [facility] Comment on above: Order Comment: Speci men Type: BLOOD SPECIMENOrdering Facility: [facility] Address: [address] [place] [address] Result Comment: Jessica mated Glomerular Filtration Rate [...] GFR. Performed By: #### 2 4323-8, 3040-3, 2776-1, ####[facility] LABIA [id number] [address] [address] [place] Glucose [Mass/Vol] 83 mg/dL Normal 74-99 [facility] Comment on above: Order Comment: Geraldo marrero Type: BLOOD SPECIMENOrdering Facility: [facility] Address: [address] [place] [address] Result Comment: The [place] [employer] (ADA) provides guidance for cutoff [...] Standards of Medical Care in Diabetes 2016, [place] [employer]. Diabetes Care. 2016.39(Suppl 1). Performed By: #### 2 4323-8, 3040-3, 2776-02, ####[facility] LABIA [id number] [address] [address] [place] Potassium [Moles/Vol] 3.7 mmol/L Normal 3.7-5.1 [facility] Comment on above: Order Comment: Geraldo marrero Type: BLOOD SPECIMENOrdering Facility: [facility] Address: [address] [place] [id number] Performed By: #### 2 4323-8, 3040-3, 2776-, ####[facility] LABCLIA [id number] [address] [address] [place] Protein [Mass/Vol] 5.9 g/dL Low 6.3-8.0 [facility] Comment on above: Order Comment: Speci men Type: BLOOD SPECIMENOrdering Facility: [facility] Address: [address] [place], [place] [address] Performed By: #### 2 4323-8, 3040-3, 27708-15, ####[facility] LABIA [id number] [address] [address] [place] Sodium [Moles/Vol] 140 mmol/L Normal 136-144 [facility] Comment on above: Order Comment: Speci men Type: BLOOD SPECIMENOrdering Facility: [facility] Address: [address] [place] [address] Performed By: #### 2 4323-8, 3040-3, 2776-02, ####[facility] LABIA [id number] [address] [address] [place] Urea nitrogen [Mass/Vol] 13 mg/dL Normal 7-21 [facility] Comment on above: Order Comment: Speci men Type: BLOOD SPECIMENOrdering Facility: [facility] Address: [address] [place], [place] [address] Performed By: #### 2 4323-8, 3040-3, 27708-15, ####[facility] LABIA [id number] [address] [address] [place] ED NOTEon 12-06-2022 ED NOTE HNO ID: [id number] Author: Michelle Regalado RN Service: Emergency Medicine Author Type: Registered Nurse Type: ED Notes Filed: 12/06/2022 10:09 PM Note Text: Report called to DEE Argueta. Normal [facility] ED NOTE HNO ID: [id number] Author: Maia Mosher RN Service: Emergency Medicine Author Type: Registered Nurse Type: ED Notes Filed: 12/06/2022 3:19 PM Note Text: Nurse handoff given to DEE Carreon Normal [facility] ED PROV NOTEon 12-06-2022 ED PROV NOTE Normal [facility] HISTORY PHYSICALon HISTORY PHYSICAL Normal [facility] Lipase SerPl-cCncon 12-07-19 Lipase [Catalytic activity/Vol] 40 U/L Normal 16-61 [facility] Comment on above: Order Comment: Speci men Type: BLOOD SPECIMENOrdering Facility: [facility] Address: [address] [place] [address] Performed By: #### 2 4323-8, 3040-3, 2776-02, ####[facility] LABCLIA [id number] [place] [address] [place] Magnesium SerPl-mCncon 12-06 Magnesium [Mass/Vol] 2.0 mg/dL Normal 1.7-2.3 [facility] Comment on above: Order Comment: Speci men Type: BLOOD SPECIMENOrdering Facility: [facility] Address: [address] [place] [address] Performed By: #### 2 4323-8, 3040-3, 2776-02, ####[facility] LABCLIA [id number] [place] [id number] [place] Phosphate SerPl-mCncon 12-06 Phosphate [Mass/Vol] 2.7 mg/dL Normal 2.7-4.8 [facility] Comment on above: Order Comment: Speci men Type: BLOOD SPECIMENOrdering Facility: [facility] Address: [place] [address] Performed By: #### 2 4323-8, 3040-3, 2776-02, ####[facility] LABCLIA [id number] [place] [id number] [place] Urinalysis complete panel (U )on 12-06-2022 Bacteria LM.HPF (Urine sed) [#/Area] Negative Normal Negative [facility] Comment on above: Order Comment: Speci men Type: URINE SPECIMENOrdering Facility: [facility] Address: [address] [place] [address] Performed By: #### 2 4356-8 ####[facility] LABCLIA [id number] [place] [address] [place] Bilirubin Ql (U) Negative Normal Negative [facility] Comment on above: Order Comment: Speci men Type: URINE SPECIMENOrdering Facility: [facility] Address: [address] [place] [address] Performed By: #### 2 4356-8 ####[facility] LABCLIA [id number] [place] [address] [place] Clarity (Unsp spec) Clear Normal Clear [facility] Comment on above: Order Comment: Speci men Type: URINE SPECIMENOrdering Facility: [facility] Address: [address] [place] [address] Performed By: #### 2 4356-8 ####[facility] LABCLIA [id number] [place] [address] [place] Color (U) Yellow Normal Yellow [facility] Comment on above: Order Comment: Speci men Type: URINE SPECIMENOrdering Facility: [facility] Address: [address] [place] [address] Performed By: #### 2 4356-8 ####[facility] LABCLIA [id number] [place] [address] [place] Epithelial cells LM.HPF (Urine sed) [#/Area] Moderate Normal [facility] Comment on above: Order Comment: Speci men Type: URINE SPECIMENOrdering Facility: [facility] Address: [address] [place] [address] Performed By: #### 2 4356-8 ####[facility] LABCLIA [id number] [place] [address] [place] Glucose Test strip (U) [Mass/Vol] Negative Normal Negative [facility] Comment on above: Order Comment: Speci men Type: URINE SPECIMENOrdering Facility: [facility] Address: [address] [place] [address] Performed By: #### 2 4356-8 ####[facility] LABCLIA [id number] [place] [address] [place] Hemoglobin Ql (U) Negative Normal Negative [facility] Comment on above: Order Comment: Speci men Type: URINE SPECIMENOrdering Facility: [facility] Address: [address] [place] [address] Performed By: #### 2 4356-8 ####[facility] LABIA [id number] [place] [address] [place] Hyaline casts (Urine sed) [#/Area] 0 /[LPF] Normal 0 /LPF [facility] Comment on above: Order Comment: Speci men Type: URINE SPECIMENOrdering Facility: [facility] Address: [address] [place] [address] Performed By: #### 2 4356-8 ####[facility] LABIA [id number] [place] [address] [place] Ketones Ql (U) Negative Normal Negative [facility] Comment on above: Order Comment: Speci men Type: URINE SPECIMENOrdering Facility: [facility] Address: [address] [place] [address] Performed By: #### 2 4356-8 ####[facility] LABCLIA [id number] [place] [address] [place] Leukocyte esterase Test strip Ql (U) Negative Normal Negative [facility] Comment on above: Order Comment: Speci men Type: URINE SPECIMENOrdering Facility: [facility] Address: [address] [place] [address] Performed By: #### 2 4356-8 ####[facility] LABCLIA [id number] [place] [address] [place] Nitrite Ql (U) Negative Normal Negative [facility] Comment on above: Order Comment: Speci men Type: URINE SPECIMENOrdering Facility: [facility] Address: [address] [place] [address] Performed By: #### 2 4356-8 ####[facility] LABCLIA [id number] [place] [address] [place] pH (U) 7.0 [pH] Normal <8.5 [facility] Comment on above: Order Comment: Speci men Type: URINE SPECIMENOrdering Facility: [facility] Address: [address] [place] [address] Performed By: #### 2 4356-8 ####[facility] LABIA [id number] [place] [address] [place] Protein (U) [Mass/Vol] Negative Normal Negative [facility] Comment on above: Order Comment: Speci men Type: URINE SPECIMENOrdering Facility: [facility] Address: [address] [place] [address] Performed By: #### 2 4356-8 ####[facility] LABIA [id number] [place] [address] [place] RBC LM.HPF (Urine sed) [#/Area] 0-2 /HPF Normal 0-2 /HPF [facility] Comment on above: Order Comment: Speci men Type: URINE SPECIMENOrdering Facility: [facility] Address: [address] [place] [address] Performed By: #### 2 4356-8 ####[facility] LABIA [id number] [place] [address] [place] Specific gravity (U) [Rel density] 1.014 Normal 1.005-1.030 [facility] Comment on above: Order Comment: Speci men Type: URINE SPECIMENOrdering Facility: [facility] Address: [address] [place] [address] Performed By: #### 2 4356-8 ####[facility] LABIA [id number] [place] [address] [place] Urobilinogen Ql (U) 0.2 EU/dL Normal 0.2-1.0 EU/dL Cl [facility] Comment on above: Order Comment: Speci men Type: URINE SPECIMENOrdering Facility: [facility] Address: [address] [place] [address] Performed By: #### 2 4356-8 ####[facility] LABIA [id number] [place] [address] [place] WBC LM.HPF (Urine sed) [#/Area] 0-5 /HPF Normal 0-5 /HPF [facility] Comment on above: Order Comment: Speci men Type: URINE SPECIMENOrdering Facility: [facility] Address: [address] [place] [address] Performed By: #### 2 4356-8 ####[facility] LABUNIV[facility] [id number] [place] [address] [place] CNOVon 12-04-2022 CNOV Normal [facility] HISTORY PHYSICALon 3 HISTORY PHYSICAL Normal [facility] Basic Metabolic Panelon 11-15 Anion gap [Moles/Vol] 10 mmol/L Normal 9-15 [facility] [place] Comment on above: Performed By: #### L IPAS #### [facility], [place]) [address] [place] [address] Calcium [Mass/Vol] 8.4 mg/dL Low 8.5-9.9 [facility] [place] Comment on above: Performed By: #### L IPAS #### [facility], [place]) [address] [place] [address] Chloride [Moles/Vol] 108 mmol/L Critically high 95-107 [facility] [place] Comment on above: Performed By: #### L IPAS #### [facility] ([place], [place]) [address] [place] [address] CO2 [Moles/Vol] 23 mmol/L Normal 20-31 [facility] [place] Comment on above: Performed By: #### L IPAS #### [facility], [place]) [address] [place] [address] Creatinine [Mass/Vol] 0.64 mg/dL Normal 0.50-0.90 [facility] [place] Comment on above: Performed By: #### L IPAS #### [facility] ([place], [place]) [address] [place] [address] GFR >60.0 Normal >60 [facility] [place] Comment on above: Result Comment: Adán atric [...] secretion. Performed By: #### L IPAS #### [facility] ([place], [place]) [address] [place] [address] Glucose [Mass/Vol] 86 mg/dL Normal 70-99 [facility] [place] Comment on above: Performed By: #### L IPAS #### [facility], [place]) [address] [place] [address] Potassium [Moles/Vol] 3.9 mmol/L Normal 3.4-4.9 [facility] [place] Comment on above: Performed By: #### L IPAS #### [facility], [place]) [address] [place] [address] Sodium [Moles/Vol] 141 mmol/L Normal 135-144 [facility] [place] Comment on above: Performed By: #### L IPAS #### [facility], [place]) [address] [place] [address] Urea nitrogen [Mass/Vol] 14 mg/dL Normal 6-20 [facility] [place] Comment on above: Performed By: #### L IPAS #### [facility], [place]) [address] [place] [address] CBC With Platelet and Differ entialon 12-03-2022 Basophils (Bld) [#/Vol] 0.0 10*3/uL Normal 0.0-0.2 [facility] [place] Comment on above: Performed By: #### C BCWD #### [facility] ([place], [place]) [address] [place] [address] Basophils/100 WBC (Bld) 0.9 % Normal [facility] [place] Comment on above: Performed By: #### C BCWD #### [facility], [place]) [address] [place] [address] Eosinophils (Bld) [#/Vol] 0.2 10*3/uL Normal 0.0-0.7 [facility] [place] Comment on above: Performed By: #### C BCWD #### [facility] ([place], [place]) [address] [place] [address] Eosinophils/100 WBC (Bld) 5.2 % Normal [facility] [place] Comment on above: Performed By: #### C BCWD #### [facility], [place]) [address] [place] [address] Erythrocyte distribution width (RBC) [Ratio] 13.2 % Normal 11.5-14.5 [facility] [place] Comment on above: Performed By: #### C BCWD #### [facility] ([place], [place]) [address] [place] [address] Hematocrit (Bld) [Volume fraction] 35.9 % Low 37.0-47.0 [facility] [place] Comment on above: Performed By: #### C BCWD #### [facility], [place]) [address] [place] [address] Hemoglobin (Bld) [Mass/Vol] 12.3 g/dL Normal 12.0-16.0 [facility] [place] Comment on above: Performed By: #### C BCWD #### [facility] ([place], [place]) [address] [place] [address] Lymphocytes (Bld) [#/Vol] 1.3 10*3/uL Normal 1.0-4.8 [facility] [place] Comment on above: Performed By: #### C BCWD #### [facility] ([place], [place]) [address] [place] [address] Lymphocytes/100 WBC (Bld) 38.2 % Normal [facility] [place] Comment on above: Performed By: #### C BCWD #### [facility] ([place], [place]) [address] [place] [address] MCH (RBC) [Entitic mass] 30.8 pg Normal 27.0-31.3 [facility] [place] Comment on above: Performed By: #### C BCWD #### [facility], [place]) [address] [place] [address] MCHC 34.3 % Normal 33.0-37.0 [facility] [place] Comment on above: Performed By: #### C BCWD #### [facility] ([place], [place]) [address] [place] [address] MCV (RBC) [Entitic vol] 89.8 fL Normal 79.4-94.8 [facility] [place] Comment on above: Performed By: #### C BCWD #### [facility], [place]) [address] [place] [address] Monocytes (Bld) [#/Vol] 0.4 10*3/uL Normal 0.2-0.8 [facility] [place] Comment on above: Performed By: #### C BCWD #### [facility] ([place], [place]) [address] [place] [address] Monocytes/100 WBC (Bld) 10.9 % Normal [facility] [place] Comment on above: Performed By: #### C BCWD #### [facility], [place]) [address] [place] [address] Neutrophils (Bld) [#/Vol] 1.5 10*3/uL Normal 1.4-6.5 [facility] [place] Comment on above: Performed By: #### C BCWD #### [facility] ([place], [place]) [address] [place] [address] Neutrophils/100 WBC (Bld) 44.5 % Normal [facility] [place] Comment on above: Performed By: #### C BCWD #### [facility], [place]) [address] [place] [address] Platelets (Bld) [#/Vol] 204 10*3/uL Normal 130-400 [facility] [place] Comment on above: Performed By: #### C BCWD #### [facility], [place]) [address] [place] [address] RBC (Bld) [#/Vol] 4.00 10*6/uL Low 4.20-5.40 [facility] [place] Comment on above: Performed By: #### C BCWD #### [facility], [place]) [address] [place] [address] WBC (Bld) [#/Vol] 3.3 10*3/uL Low 4.8-10.8 [facility] [place] Comment on above: Performed By: #### C BCWD #### [facility] ([place], [place]) [address] [place] [address] Basophils (Bld) [#/Vol] 0.0 10*3/uL Normal 0.0-0.2 [facility] [place] Comment on above: Performed By: #### P GLU #### [facility] ([place], [place]) [address] [place] [address] Basophils/100 WBC (Bld) 0.7 % Normal [facility] [place] Comment on above: Performed By: #### P GLU #### [facility] ([place], [place]) [address] [place] [address] Eosinophils (Bld) [#/Vol] 0.2 10*3/uL Normal 0.0-0.7 [facility] [place] Comment on above: Performed By: #### P GLU #### [facility] ([place], [place]) [address] [place] [address] Eosinophils/100 WBC (Bld) 5.9 % Normal [facility] [place] Comment on above: Performed By: #### P GLU #### [facility] [place]) [address] [place] [address] Erythrocyte distribution width (RBC) [Ratio] 13.5 % Normal 11.5-14.5 [facility] ([place] [place] Comment on above: Performed By: #### P GLU #### [facility] ([place], [place]) [address] [place] [address] Hematocrit (Bld) [Volume fraction] 33.2 % Low 37.0-47.0 [facility] [place] Comment on above: Performed By: #### P GLU #### [facility] ([place], [place]) [address] [place] [address] Hemoglobin (Bld) [Mass/Vol] 11.8 g/dL Low 12.0-16.0 [facility] [place] Comment on above: Performed By: #### P GLU #### [facility] ([place], [place]) [address] [place] [address] Lymphocytes (Bld) [#/Vol] 1.1 10*3/uL Normal 1.0-4.8 [facility] [place] Comment on above: Performed By: #### P GLU #### [facility] ([place] [place]) [address] [place] [address] Lymphocytes/100 WBC (Bld) 39.5 % Normal [facility] [place] Comment on above: Performed By: #### P GLU #### [facility] [place]) [address] [place] [address] MCH (RBC) [Entitic mass] 34.0 pg Critically high 27.0-31.3 [facility] [place] Comment on above: Performed By: #### P GLU #### [facility], [place]) [address] [place] [address] MCHC 35.5 % Normal 33.0-37.0 [facility] [place] Comment on above: Performed By: #### P GLU #### [facility], [place]) [address] [place] [address] MCV (RBC) [Entitic vol] 95.7 fL Critically high 79.4-94.8 [facility] [place] Comment on above: Performed By: #### P GLU #### [facility] ([place], [place]) [address] [place] [address] Monocytes (Bld) [#/Vol] 0.3 10*3/uL Normal 0.2-0.8 [facility] [place] Comment on above: Performed By: #### P GLU #### [facility] ([place], [place]) [address] [place] [address] Monocytes/100 WBC (Bld) 9.1 % Normal [facility] [place] Comment on above: Performed By: #### P GLU #### [facility] [place]) [address] [place] [address] Neutrophils (Bld) [#/Vol] 1.3 10*3/uL Low 1.4-6.5 [facility] [place] Comment on above: Performed By: #### P GLU #### [facility] ([place], [place]) [address] [place] [address] Neutrophils/100 WBC (Bld) 44.5 % Normal [facility] [place] Comment on above: Performed By: #### P GLU #### [facility] [place]) [address] [place] [address] Platelets (Bld) [#/Vol] 186 10*3/uL Normal 130-400 [facility] [place] Comment on above: Performed By: #### P GLU #### [facility] ([place] [place]) [address] [place] [address] RBC (Bld) [#/Vol] 3.47 10*6/uL Low 4.20-5.40 [facility] [place] Comment on above: Performed By: #### P GLU #### [facility] [place]) [address] [place] [address] WBC (Bld) [#/Vol] 2.9 10*3/uL Low 4.8-10.8 [facility] [place] Comment on above: Performed By: #### P GLU #### [facility], [place]) [address] [place] [address] CNPNon 12-03-2022 CNPN Normal [facility] Magnesiumon 12-03-2022 Magnesium [Mass/Vol] 1.8 mg/dL Normal 1.7-2.4 [facility] [place] Comment on above: Performed By: #### L IPAS #### [facility] [place]) [address] [place] [address] POCT Glucoseon 12-03-2022 Glucose [Mass/Vol] 90 mg/dL Normal 70-99 [facility] [place] Comment on above: Performed By: #### P GLU #### [facility] [place]) [address] [place] [address] POC Performed on ACCU-CHEK Normal [facility] [place] Comment on above: Performed By: #### P GLU #### [facility] [place]) [address] [place] [address] Glucose [Mass/Vol] 101 mg/dL Critically high 70-99 [facility] Comment on above: Performed By: #### L IPAS #### [facility] [place]) [address] [place] [address] POC Performed on ACCU-CHEK Normal [facility] [place] Comment on above: Performed By: #### L IPAS #### [facility] [place]) [address] [place] [address] Phosphoruson 12-03-2022 Phosphate [Mass/Vol] 3.6 mg/dL Normal 2.3-4.8 [facility] [place] Comment on above: Performed By: #### L IPAS #### [facility] [place]) [address] [place] [address] Basic Metabolic Panelon 11-15 Anion gap [Moles/Vol] 6 mmol/L Low 9-15 [facility] [place] Comment on above: Performed By: #### C BCWD #### [facility] [place]) [address] [place] [address] Calcium [Mass/Vol] 8.4 mg/dL Low 8.5-9.9 [facility] [place] Comment on above: Performed By: #### C BCWD #### [facility] [place]) [address] [place] [address] Chloride [Moles/Vol] 107 mmol/L Normal 95-107 [facility] [place] Comment on above: Performed By: #### C BCWD #### [facility] [place]) [address] [place] [address] CO2 [Moles/Vol] 25 mmol/L Normal 20-31 [facility] [place] Comment on above: Performed By: #### C BCWD #### [facility] [place]) [address] [place] [address] Creatinine [Mass/Vol] 0.57 mg/dL Normal 0.50-0.90 [facility] [place] Comment on above: Performed By: #### C BCWD #### [facility] [place]) [address] [place] [address] GFR >60.0 Normal >60 [facility] [place] Comment on above: Result Comment: Pedi atric [...] secretion. Performed By: #### C BCWD #### [facility] [place]) [address] [place] [address] Glucose [Mass/Vol] 104 mg/dL Critically high 70-99 [facility] Comment on above: Performed By: #### C BCWD #### [facility] [place]) [address] [place] [address] Potassium [Moles/Vol] 4.0 mmol/L Normal 3.4-4.9 [facility] [place] Comment on above: Performed By: #### C BCWD #### [facility] [place]) [address] [place] [address] Sodium [Moles/Vol] 138 mmol/L Normal 135-144 [facility] [place] Comment on above: Performed By: #### C BCWD #### [facility] [place]) [address] [place] [address] Urea nitrogen [Mass/Vol] 12 mg/dL Normal 6-20 [facility] [place] Comment on above: Performed By: #### C BCWD #### [facility] [place]) [address] [place] [address] CBC With Platelet and Differ entialon 12-02-2022 Anisocytosis Ql (Bld) 1+ Normal [facility] [place] Comment on above: Performed By: #### C BCWD #### [facility] [place]) [address] [place] [address] Basophils (Bld) [#/Vol] 0.0 10*3/uL Normal 0.0-0.2 [facility] [place] Comment on above: Performed By: #### C BCWD #### [facility] [place]) [address] [place] [address] Basophils/100 WBC (Bld) 1.0 % Normal [facility] [place] Comment on above: Performed By: #### C BCWD #### [facility] [place]) [address] [place] [address] Eosinophils (Bld) [#/Vol] 0.2 10*3/uL Normal 0.0-0.7 [facility] [place] Comment on above: Performed By: #### C BCWD #### [facility], [place]) [address] [place] [address] Eosinophils/100 WBC (Bld) 9.0 % Normal [facility] [place] Comment on above: Performed By: #### C BCWD #### [facility] [place]) [address] [place] [address] Lymphocytes (Bld) [#/Vol] 0.9 10*3/uL Low 1.0-4.8 [facility] [place] Comment on above: Performed By: #### C BCWD #### [facility] [place]) [address] [place] [address] Lymphocytes/100 WBC (Bld) 35.0 % Normal [facility] [place] Comment on above: Performed By: #### C BCWD #### [facility] [place]) [address] [place] [address] Monocytes (Bld) [#/Vol] 0.1 10*3/uL Low 0.2-0.8 [facility] [place] Comment on above: Performed By: #### C BCWD #### [facility] [place]) [address] [place] [address] Monocytes/100 WBC (Bld) 4.6 % Normal [facility] [place] Comment on above: Performed By: #### C BCWD #### [facility] [place]) [address] [place] [address] Neutrophils (Bld) [#/Vol] 1.4 10*3/uL Normal 1.4-6.5 [facility] [place] Comment on above: Performed By: #### C BCWD #### [facility] [place]) [address] [place] [address] Neutrophils/100 WBC (Bld) 50.0 % Normal [facility] [place] Comment on above: Performed By: #### C BCWD #### [facility] [place]) [address] [place] [address] Ovalocytes 1+ Normal [facility] [place] Comment on above: Performed By: #### C BCWD #### [facility] [place]) [address] [place] [address] Poikilocytosis 1+ Normal [facility] [place] Comment on above: Performed By: #### C BCWD #### [facility] [place]) [address] [place] [address] Erythrocyte distribution width (RBC) [Ratio] 13.3 % Normal 11.5-14.5 [facility] [place] Comment on above: Performed By: #### C BCWD #### [facility] [place]) [address] [place] [address] Hematocrit (Bld) [Volume fraction] 34.0 % Low 37.0-47.0 [facility] [place] Comment on above: Performed By: #### C BCWD #### [facility] [place]) [address] [place] [address] Hemoglobin (Bld) [Mass/Vol] 11.8 g/dL Low 12.0-16.0 [facility] [place] Comment on above: Performed By: #### C BCWD #### [facility] ([place], [place]) [address] [place] [address] MCH (RBC) [Entitic mass] 31.3 pg Normal 27.0-31.3 [facility] ([place], [place]) Comment on above: Performed By: #### C BCWD #### [facility] ([place], [place]) [address] [place] [address] MCHC 34.7 % Normal 33.0-37.0 [facility] ([place], [place]) Comment on above: Performed By: #### C BCWD #### [facility] ([place], [place]) [address] [place] [address] MCV (RBC) [Entitic vol] 90.2 fL Normal 79.4-94.8 [facility] ([place], [place]) Comment on above: Performed By: #### C BCWD #### [facility] ([place], [place]) [address] [place] [address] Platelets (Bld) [#/Vol] 201 10*3/uL Normal 130-400 [facility] ([place], [place]) Comment on above: Performed By: #### C BCWD #### [facility] ([place], [place]) [address] [place] [address] RBC (Bld) [#/Vol] 3.77 10*6/uL Low 4.20-5.40 [facility] ([place], [place]) Comment on above: Performed By: #### C BCWD #### [facility] ([place], [place]) [address] [place] [address] WBC (Bld) [#/Vol] 2.7 10*3/uL Low 4.8-10.8 [facility] ([place], [place]) Comment on above: Performed By: #### C BCWD #### [facility] ([place], [place]) [address] [place] [address] Magnesiumon 12-02-2022 Magnesium [Mass/Vol] 1.9 mg/dL Normal 1.7-2.4 [facility] ([place], [place]) Comment on above: Performed By: #### C BCWD #### [facility] ([place], [place]) [address] [place] [address] POCT Glucoseon 12-02-2022 Glucose [Mass/Vol] 115 mg/dL Critically high 70-99 [facility] Comment on above: Performed By: #### P GLU #### [facility] ([place], [place]) [address] [place] [address] POC Performed on ACCU-CHEK Normal [facility] ([place], [place]) Comment on above: Performed By: #### P GLU #### [facility] ([place], [place]) [address] [place] [address] Glucose [Mass/Vol] 94 mg/dL Normal 70-99 [facility] ([place], [place]) Comment on above: Performed By: #### P GLU #### [facility] ([place], [place]) [address] [place] [address] POC Performed on ACCU-CHEK Normal [facility] ([place], [place]) Comment on above: Performed By: #### P GLU #### [facility] ([place], [place]) [address] [place] [address] Glucose [Mass/Vol] 94 mg/dL Normal 70-99 [facility] ([place], [place]) Comment on above: Performed By: #### P GLU #### [facility] ([place], [place]) [address] [place] [address] POC Performed on ACCU-CHEK Normal [facility] ([place], [place]) Comment on above: Performed By: #### P GLU #### [facility] ([place], [place]) [address] [place] [address] Phosphoruson 12-02-2022 Phosphate [Mass/Vol] 3.7 mg/dL Normal 2.3-4.8 [facility] ([place], [place]) Comment on above: Performed By: #### P GLU #### [facility] ([place], [place]) [address] [place] [address] CNPNon 12-01-2022 CNPN Normal [facility] Metabolic Pane nestor 12-01-2022 Albumin [Mass/Vol] 3.7 g/dL Normal 3.5-4.6 [facility] ([place], [place]) Comment on above: Performed By: #### C BCWD #### [facility] ([place], [place]) [address] [place] [address] ALP [Catalytic activity/Vol] 62 U/L Normal 40-130 [facility] ([place], [place]) Comment on above: Performed By: #### C BCWD #### [facility] ([place], [place]) [address] [place] [address] ALT [Catalytic activity/Vol] 16 U/L Normal 0-33 [facility] ([place], [place]) Comment on above: Performed By: #### C BCWD #### [facility] ([place], [place]) [address] [place] [address] Anion gap [Moles/Vol] 7 mmol/L Low 9-15 [facility] ([place], [place]) Comment on above: Performed By: #### C BCWD #### [facility] ([place], [place]) [address] [place] [address] AST [Catalytic activity/Vol] 30 U/L Normal 0-35 [facility] ([place], [place]) Comment on above: Performed By: #### C BCWD #### [facility] ([place], [place]) [address] [place] [address] Bilirubin [Mass/Vol] 0.3 mg/dL Normal 0.2-0.7 [facility] ([place], [place]) Comment on above: Performed By: #### C BCWD #### [facility] ([place], [place]) [address] [place] [address] Calcium [Mass/Vol] 8.3 mg/dL Low 8.5-9.9 [facility] ([place], [place]) Comment on above: Performed By: #### C BCWD #### [facility] ([place], [place]) [address] [place] [address] Chloride [Moles/Vol] 106 mmol/L Normal 95-107 [facility] ([place], [place]) Comment on above: Performed By: #### C BCWD #### [facility] ([place], [place]) [address] [place] [address] CO2 [Moles/Vol] 23 mmol/L Normal 20-31 [facility] ([place], [place]) Comment on above: Performed By: #### C BCWD #### [facility] ([place], [place]) [address] [place] [address] Creatinine [Mass/Vol] 0.66 mg/dL Normal 0.50-0.90 [facility] ([place], [place]) Comment on above: Performed By: #### C BCWD #### [facility] ([place], [place]) [address] [place] [address] GFR >60.0 Normal >60 [facility] ([place], [place]) Comment on above: Result Comment: Adán atric [...] secretion. Performed By: #### C BCWD #### [facility] ([place], [place]) [address] [place] [address] Globulin (S) [Mass/Vol] 2.1 g/dL Low 2.3-3.5 [facility] ([place], [place]) Comment on above: Performed By: #### C BCWD #### [facility] ([place], [place]) [address] [place] [address] Glucose [Mass/Vol] 104 mg/dL Critically high 70-99 [facility] Comment on above: Performed By: #### C BCWD #### [facility] ([place], [place]) [address] [place] [address] Potassium [Moles/Vol] 3.9 mmol/L Normal 3.4-4.9 [facility] ([place], [place]) Comment on above: Performed By: #### C BCWD #### [facility] ([place], [place]) [address] [place] [address] Protein [Mass/Vol] 5.8 g/dL Low 6.3-8.0 [facility] ([place], [place]) Comment on above: Performed By: #### C BCWD #### [facility] ([place], [place]) [address] [place] [address] Sodium [Moles/Vol] 136 mmol/L Normal 135-144 [facility] ([place], [place]) Comment on above: Performed By: #### C BCWD #### [facility] ([place], [place]) [address] [place] [address] Urea nitrogen [Mass/Vol] 6 mg/dL Normal 6-20 [facility] ([place], [place]) Comment on above: Performed By: #### C BCWD #### [facility] ([place], [place]) [address] [place] [address] Magnesiumon 12-01-2022 Magnesium [Mass/Vol] 2.0 mg/dL Normal 1.7-2.4 [facility] ([place], [place]) Comment on above: Performed By: #### C BCWD #### [facility] ([place], [place]) [address] [place] [address] POCT Glucoseon 12-01-2022 Glucose [Mass/Vol] 113 mg/dL Critically high 70-99 [facility] Comment on above: Performed By: #### P GLU #### [facility] ([place], [place]) [address] [place] [address] POC Performed on ACCU-CHEK Normal [facility] ([place], [place]) Comment on above: Result Comment: Robby meneses RN or Performed By: #### P GLU #### [facility] ([place], [place]) [address] [place] [address] Phosphoruson 12-01-2022 Phosphate [Mass/Vol] 3.7 mg/dL Normal 2.3-4.8 [facility] ([place], [place]) Comment on above: Performed By: #### P GLU #### [facility] ([place], [place]) [address] [place] [address] Triglycerideson 12-01-2022 Triglyceride [Mass/Vol] 111 mg/dL Normal 0-150 [facility] ([place], [place]) Comment on above: Result Comment: ATP III Triglycerides Classification is Normal. Performed By: #### T RIG #### [facility] ([place], [place]) [address] [place] [address] Comprehensive Metabolic Pane nestor 11-30-2022 Albumin [Mass/Vol] 3.5 g/dL Normal 3.5-4.6 [facility] ([place], [place]) Comment on above: Performed By: #### C BCWD #### [facility] ([place], [place]) [address] [place] [address] ALP [Catalytic activity/Vol] 45 U/L Normal 40-130 [facility] ([place], [place]) Comment on above: Performed By: #### C BCWD #### [facility] ([place], [place]) [address] [place] [address] ALT [Catalytic activity/Vol] 15 U/L Normal 0-33 [facility] ([place], [place]) Comment on above: Result Comment: Spec imen hemolysis has exceeded the interference as defined by Kamran. Result may be affected. Suggest recollection if clinically indicated. Performed By: #### C BCWD #### [facility] ([place], [place]) [address] [place] [address] Anion gap [Moles/Vol] 6 mmol/L Low 9-15 [facility] ([place], [place]) Comment on above: Performed By: #### C BCWD #### [facility] ([place], [place]) [address] [place] [address] AST [Catalytic activity/Vol] 40 U/L Critically high 0-35 [facility] ([place], [place]) Comment on above: Result Comment: Spec imen hemolysis has exceeded the interference as defined by Kamran. Value may be falsely increased. Suggest recollection if clinically indicated. Performed By: #### C BCWD #### [facility] ([place], [place]) [address] [place] [address] Bilirubin [Mass/Vol] 0.3 mg/dL Normal 0.2-0.7 [facility] ([place], [place]) Comment on above: Performed By: #### C BCWD #### [facility] ([place], [place]) [address] [place] [address] Calcium [Mass/Vol] 8.3 mg/dL Low 8.5-9.9 [facility] ([place], [place]) Comment on above: Performed By: #### C BCWD #### [facility] ([place], [place]) [address] [place] [address] Chloride [Moles/Vol] 107 mmol/L Normal 95-107 [facility] ([place], [place]) Comment on above: Performed By: #### C BCWD #### [facility] ([place], [place]) [address] [place] [address] CO2 [Moles/Vol] 23 mmol/L Normal 20-31 [facility] ([place], [place]) Comment on above: Performed By: #### C BCWD #### [facility] ([place], [place]) [address] [place] [address] Creatinine [Mass/Vol] 0.69 mg/dL Normal 0.50-0.90 [facility] ([place], [place]) Comment on above: Performed By: #### C BCWD #### [facility] ([place], [place]) [address] [place] [address] GFR >60.0 Normal >60 [facility] ([place], [place]) Comment on above: Result Comment: Pedi atric [...] secretion. Performed By: #### C BCWD #### [facility] ([place], [place]) [address] [place] [address] Globulin (S) [Mass/Vol] 1.9 g/dL Low 2.3-3.5 [facility] ([place], [place]) Comment on above: Performed By: #### C BCWD #### [facility] ([place], [place]) [address] [place] [address] Glucose [Mass/Vol] 86 mg/dL Normal 70-99 [facility] ([place], [place]) Comment on above: Performed By: #### C BCWD #### [facility] ([place], [place]) [address] [place] [address] Potassium [Moles/Vol] 4.6 mmol/L Normal 3.4-4.9 [facility] ([place], [place]) Comment on above: Result Comment: Spec imen hemolysis has exceeded the interference as defined by Kamran. Value may be falsely increased. Suggest recollection if clinically indicated. Performed By: #### C BCWD #### [facility] ([place], [place]) [address] [place] [address] Protein [Mass/Vol] 5.4 g/dL Low 6.3-8.0 [facility] ([place], [place]) Comment on above: Performed By: #### C BCWD #### [facility] ([place], [place]) [address] [place] [address] Sodium [Moles/Vol] 136 mmol/L Normal 135-144 [facility] ([place], [place]) Comment on above: Performed By: #### C BCWD #### [facility] ([place], [place]) [address] [place] [address] Urea nitrogen [Mass/Vol] 4 mg/dL Low 6-20 [facility] ([place], [place]) Comment on above: Performed By: #### C BCWD #### [facility] ([place], [place]) [address] [place] [address] IR PICC WO SQ PORT/PUMP > 5 [...] caps and surgical masks. In addition, the primary care nurse and legislative assistant donned sterile gowns and gloves after [...] sheath was placed over the guidewire. A 5-Chilean dual-lumen PICC was advanced through the sheath, [...] Cedrick Billings MD 11/30/[address] [facility] ([place], [place]) Magnesiumon 11-30-2022 Magnesium [Mass/Vol] 1.9 mg/dL Normal 1.7-2.4 [facility] ([place], [place]) Comment on above: Performed By: #### P GLU #### [facility] ([place], [place]) [address] [facility] [address] Phosphoruson 11-30-2022 Phosphate [Mass/Vol] 3.2 mg/dL Normal 2.3-4.8 [facility] ([place], [place]) Comment on above: Performed By: #### C BCWD #### [facility] ([place], [place]) [address] [facility] [address] CBC With Platelet and Differ entialon 11-29-2022 Basophils (Bld) [#/Vol] 0.0 10*3/uL Normal 0.0-0.2 [facility] ([place], [place]) Comment on above: Performed By: #### P GLU #### [facility] ([place], [place]) [address] [facility] [place] [address] Basophils/100 WBC (Bld) 0.6 % Normal [facility] ([place], [place]) Comment on above: Performed By: #### P GLU #### [facility] ([place], [place]) [address] [facility] [address] Eosinophils (Bld) [#/Vol] 0.1 10*3/uL Normal 0.0-0.7 [facility] ([place], [place]) Comment on above: Performed By: #### P GLU #### [facility] ([place], [place]) [address] [place] [address] Eosinophils/100 WBC (Bld) 4.4 % Normal [facility] ([place], [place]) Comment on above: Performed By: #### P GLU #### [facility] ([place], [place]) [address] [place] [address] Erythrocyte distribution width (RBC) [Ratio] 13.6 % Normal 11.5-14.5 [facility] ([place], [place]) Comment on above: Performed By: #### P GLU #### [facility] ([place], [place]) [address] [place] [address] Hematocrit (Bld) [Volume fraction] 36.4 % Low 37.0-47.0 [facility] ([place], [place]) Comment on above: Performed By: #### P GLU #### [facility] ([place], [place]) [address] [place] [address] Hemoglobin (Bld) [Mass/Vol] 12.2 g/dL Normal 12.0-16.0 [facility] ([place], [place]) Comment on above: Performed By: #### P GLU #### [facility] ([place], [place]) [address] [place] [address] Lymphocytes (Bld) [#/Vol] 1.3 10*3/uL Normal 1.0-4.8 [facility] ([place], [place]) Comment on above: Performed By: #### P GLU #### [facility] ([place], [place]) [address] [place] [address] Lymphocytes/100 WBC (Bld) 41.0 % Normal [facility] ([place], [place]) Comment on above: Performed By: #### P GLU #### [facility] ([place], [place]) [address] [place] [address] MCH (RBC) [Entitic mass] 30.9 pg Normal 27.0-31.3 [facility] ([place], [place]) Comment on above: Performed By: #### P GLU #### [facility] ([place], [place]) [address] [place] [address] MCHC 33.5 % Normal 33.0-37.0 [facility] ([place], [place]) Comment on above: Performed By: #### P GLU #### [facility] ([place], [place]) [address] [place] [address] MCV (RBC) [Entitic vol] 92.2 fL Normal 79.4-94.8 [facility] ([place], [place]) Comment on above: Performed By: #### P GLU #### [facility] ([place], [place]) [address] [place] [address] Monocytes (Bld) [#/Vol] 0.3 10*3/uL Normal 0.2-0.8 [facility] ([place], [place]) Comment on above: Performed By: #### P GLU #### [facility] ([place], [place]) [address] [place] [address] Monocytes/100 WBC (Bld) 9.8 % Normal [facility] ([place], [place]) Comment on above: Performed By: #### P GLU #### [facility] ([place], [place]) [address] [place] [address] Neutrophils (Bld) [#/Vol] 1.4 10*3/uL Normal 1.4-6.5 [facility] ([place], [place]) Comment on above: Performed By: #### P GLU #### [facility] ([place], [place]) [address] [place] [address] Neutrophils/100 WBC (Bld) 44.2 % Normal [facility] ([place], [place]) Comment on above: Performed By: #### P GLU #### [facility] ([place], [place]) [address] [place] [address] Platelets (Bld) [#/Vol] 242 10*3/uL Normal 130-400 [facility] ([place], [place]) Comment on above: Performed By: #### P GLU #### [facility] ([place], [place]) [address] [place] [address] RBC (Bld) [#/Vol] 3.95 10*6/uL Low 4.20-5.40 [facility] ([place], [place]) Comment on above: Performed By: #### P GLU #### [facility] ([place], [place]) [address] [place] [address] WBC (Bld) [#/Vol] 3.2 10*3/uL Low 4.8-10.8 [facility] ([place], [place]) Comment on above: Performed By: #### P GLU #### [facility] ([place], [place]) [address] [place] [address] Comprehensive Metabolic Pane nestor 11-29-2022 Albumin [Mass/Vol] 3.5 g/dL Normal 3.5-4.6 [facility] ([place], [place]) Comment on above: Performed By: #### P GLU #### [facility] ([place], [place]) [address] [place] [address] ALP [Catalytic activity/Vol] 60 U/L Normal 40-130 [facility] ([place] [place]) Comment on above: Performed By: #### P GLU #### [facility] ([place], [place]) [address] [place] [address] ALT [Catalytic activity/Vol] 15 U/L Normal 0-33 [facility] ([place] [place]) Comment on above: Performed By: #### P GLU #### [facility] ([place], [place]) [address] [place] [address] Anion gap [Moles/Vol] 8 mmol/L Low 9-15 [facility] ([place], [place]) Comment on above: Performed By: #### P GLU #### [facility] ([place], [place]) [address] [place] [address] AST [Catalytic activity/Vol] 28 U/L Normal 0-35 [facility] ([place], [place]) Comment on above: Performed By: #### P GLU #### [facility] ([place], [place]) [address] [place] [address] Bilirubin [Mass/Vol] mg/dL Normal 0.2-0.7 [facility] ([place], [place]) Comment on above: Performed By: #### P GLU #### [facility] ([place], [place]) [address] [place] [address] Calcium [Mass/Vol] 8.4 mg/dL Low 8.5-9.9 [facility] ([place] [place]) Comment on above: Performed By: #### P GLU #### [facility] ([place], [place]) [address] [place] [address] Chloride [Moles/Vol] 113 mmol/L Critically high 95-107 [facility] ([place] [place]) Comment on above: Performed By: #### P GLU #### [facility] ([place], [place]) [address] [place] [address] CO2 [Moles/Vol] 23 mmol/L Normal 20-31 [facility] ([place] [place]) Comment on above: Performed By: #### P GLU #### [facility] ([place], [place]) [address] [place] [address] Creatinine [Mass/Vol] 0.71 mg/dL Normal 0.50-0.90 [facility] ([place], [place]) Comment on above: Performed By: #### P GLU #### [facility] ([place], [place]) [address] [place] [address] GFR >60.0 Normal >60 [facility] ([place], [place]) Comment on above: Result Comment: Huberi atric [...] secretion. Performed By: #### P GLU #### [facility] ([place], [place]) [address] [place] [address] Globulin (S) [Mass/Vol] 2.2 g/dL Low 2.3-3.5 [facility] ([place], [place]) Comment on above: Performed By: #### P GLU #### [facility] ([place], [place]) [address] [place] [address] Glucose [Mass/Vol] 85 mg/dL Normal 70-99 [facility] ([place] [place]) Comment on above: Performed By: #### P GLU #### [facility] ([place], [place]) [address] [place] [address] Potassium [Moles/Vol] 4.2 mmol/L Normal 3.4-4.9 [facility] ([place] [place]) Comment on above: Performed By: #### P GLU #### [facility] ([place], [place]) [address] [place] [address] Protein [Mass/Vol] 5.7 g/dL Low 6.3-8.0 [facility] ([place], [place]) Comment on above: Performed By: #### P GLU #### [facility] ([place], [place]) [address] [place] [address] Sodium [Moles/Vol] 144 mmol/L Normal 135-144 [facility] ([place] [place]) Comment on above: Performed By: #### P GLU #### [facility] ([place], [place]) [address] [place] [address] Urea nitrogen [Mass/Vol] 5 mg/dL Low 6-20 [facility] ([place] [place]) Comment on above: Performed By: #### P GLU #### [facility] ([place], [place]) [address] [place] [address] Lactic Acidon 11-29-2022 Lactate [Moles/Vol] 0.9 mmol/L Normal 0.5-2.2 [facility] ([place] [place]) Comment on above: Performed By: #### L IPAS #### [facility] ([place], [place]) [address] [place] [address] Lipaseon 11-29-2022 Lipase [Catalytic activity/Vol] 48 U/L Normal 12-95 [facility] ([place] [place]) Comment on above: Performed By: #### L IPAS #### [facility] ([place], [place]) [address] [place] [address] Magnesiumon 11-29-2022 Magnesium [Mass/Vol] 1.9 mg/dL Normal 1.7-2.4 [facility] ([place] [place]) Comment on above: Performed By: #### P GLU #### [facility] ([place], [place]) [address] [place] [address] Partial Thromboplastin Timeo n 11-29-2022 aPTT Coag (Bld) [Time] 33.0 s Normal 24.4-36.8 [facility] ([place], [place]) Comment on above: Result Comment: Effe ctive 12/20/2019: Heparin Therapeutic Range: 64.0 ? 98.0 seconds. Performed By: #### C BCWD #### [facility] ([place], [place]) [address] [place] [address] Phosphoruson 11-29-2022 Phosphate [Mass/Vol] 3.3 mg/dL Normal 2.3-4.8 [facility] ([place] [place]) Comment on above: Performed By: #### C BCWD #### [facility] ([place], [place]) [address] [place] [address] Prothrombin Timeon INR Coag (PPP) [Relative time] 1.2 {INR} Normal [facility] ([place] [place]) Comment on above: Performed By: #### P T #### [facility] ([place], [place]) [address] [place] [address] PT Coag (PPP) [Time] 15.6 s Critically high 12.3-14.9 [facility] ([place] [place]) Comment on above: Performed By: #### P T #### [facility] ([place], [place]) [address] [place] [address] Prealbuminon 11-28-2022 Prealbumin [Mass/Vol] 15.0 mg/dL Low 20.0-40.0 [facility] ([place] [place]) Comment on above: Order Comment: Colle ction has been rescheduled by CARL at 11/28/2022 18:15 Reason:Failed attempt at venipuncture Performed By: #### L IPAS #### [facility] ([place], [place]) [address] [place] [address] Amylaseon 11-27-2022 Amylase [Catalytic activity/Vol] 44 U/L Normal 22-93 [facility] ([place] [place]) Comment on above: Performed By: #### P GLU #### [facility] ([place], [place]) [address] [place] [address] CBC With Platelet and Differ entialon 11-27-2022 Basophils (Bld) [#/Vol] 0.0 10*3/uL Normal 0.0-0.2 [facility] ([place], [place]) Comment on above: Performed By: #### P GLU #### [facility] ([place], [place]) [address] [place] [address] Basophils/100 WBC (Bld) 0.7 % Normal [facility] ([place], [place]) Comment on above: Performed By: #### P GLU #### [facility] ([place], [place]) [address] [place] [address] Eosinophils (Bld) [#/Vol] 0.1 10*3/uL Normal 0.0-0.7 [facility] ([place], [place]) Comment on above: Performed By: #### P GLU #### [facility] ([place], [place]) [address] [place] [address] Eosinophils/100 WBC (Bld) 1.4 % Normal [facility] ([place], [place]) Comment on above: Performed By: #### P GLU #### [facility] ([place], [place]) [address] [place] [address] Erythrocyte distribution width (RBC) [Ratio] 13.3 % Normal 11.5-14.5 [facility] ([place], [place]) Comment on above: Performed By: #### P GLU #### [facility] ([place], [place]) [address] [place] [address] Hematocrit (Bld) [Volume fraction] 38.0 % Normal 37.0-47.0 [facility] ([place], [place]) Comment on above: Performed By: #### P GLU #### [facility] ([place], [place]) [address] [place] [address] Hemoglobin (Bld) [Mass/Vol] 12.7 g/dL Normal 12.0-16.0 [facility] ([place], [place]) Comment on above: Performed By: #### P GLU #### [facility] ([place], [place]) [address] [place] [address] Lymphocytes (Bld) [#/Vol] 1.4 10*3/uL Normal 1.0-4.8 [facility] ([place], [place]) Comment on above: Performed By: #### P GLU #### [facility] ([place], [place]) [address] [place] [address] Lymphocytes/100 WBC (Bld) 32.1 % Normal [facility] ([place], [place]) Comment on above: Performed By: #### P GLU #### [facility] ([place], [place]) [address] [place] [address] MCH (RBC) [Entitic mass] 30.6 pg Normal 27.0-31.3 [facility] ([place], [place]) Comment on above: Performed By: #### P GLU #### [facility] ([place], [place]) [address] [place] [address] MCHC 33.4 % Normal 33.0-37.0 [facility] ([place], [place]) Comment on above: Performed By: #### P GLU #### [facility] ([place], [place]) [address] [place] [address] MCV (RBC) [Entitic vol] 91.6 fL Normal 79.4-94.8 [facility] ([place], [place]) Comment on above: Performed By: #### P GLU #### [facility] ([place], [place]) [address] [place] [address] Monocytes (Bld) [#/Vol] 0.3 10*3/uL Normal 0.2-0.8 [facility] ([place], [place]) Comment on above: Performed By: #### P GLU #### [facility] ([place], [place]) [address] [place] [address] Monocytes/100 WBC (Bld) 6.0 % Normal [facility] ([place], [place]) Comment on above: Performed By: #### P GLU #### [facility] ([place], [place]) [address] [place] [address] Neutrophils (Bld) [#/Vol] 2.6 10*3/uL Normal 1.4-6.5 [facility] ([place], [place]) Comment on above: Performed By: #### P GLU #### [facility] ([place], [place]) [address] [place] [address] Neutrophils/100 WBC (Bld) 59.6 % Normal [facility] ([place], [place]) Comment on above: Performed By: #### P GLU #### [facility] ([place], [place]) [address] [place] [address] Platelets (Bld) [#/Vol] 238 10*3/uL Normal 130-400 [facility] ([place], [place]) Comment on above: Performed By: #### P GLU #### [facility] ([place], [place]) [address] [place] [address] RBC (Bld) [#/Vol] 4.15 10*6/uL Low 4.20-5.40 [facility] ([place], [place]) Comment on above: Performed By: #### P GLU #### [facility] ([place], [place]) [address] [place] [address] WBC (Bld) [#/Vol] 4.4 10*3/uL Low 4.8-10.8 [facility] ([place], [place]) Comment on above: Performed By: #### P GLU #### [facility] ([place], [place]) [address] [place] [address] CT ABDOMEN PELVIS W IV CONTR Daljit [...] Iker Ayala MD 11/27/[address] [facility] ([place], [place]) CTA CHEST W WO CONTRASTon CTA CHEST [...] Jason Mcrae MD 11/27/[address] [facility] ([place], [place]) Comprehensive Metabolic Pane nestor 11-27-2022 Albumin [Mass/Vol] 4.0 g/dL Normal 3.5-4.6 [facility] ([place], [place]) Comment on above: Performed By: #### P GLU #### [facility] ([place], [place]) [address] [place] [address] ALP [Catalytic activity/Vol] 60 U/L Normal 40-130 [facility] ([place], [place]) Comment on above: Performed By: #### P GLU #### [facility] ([place], [place]) [address] [place] [address] ALT [Catalytic activity/Vol] 20 U/L Normal 0-33 [facility] ([place], [place]) Comment on above: Performed By: #### P GLU #### [facility] ([place], [place]) [address] [place] [address] Anion gap [Moles/Vol] 10 mmol/L Normal 9-15 [facility] ([place], [place]) Comment on above: Performed By: #### P GLU #### [facility] ([place], [place]) [address] [place] [address] AST [Catalytic activity/Vol] 34 U/L Normal 0-35 [facility] ([place], [place]) Comment on above: Performed By: #### P GLU #### [facility] ([place], [place]) [address] [place] [address] Bilirubin [Mass/Vol] 0.4 mg/dL Normal 0.2-0.7 [facility] ([place], [place]) Comment on above: Performed By: #### P GLU #### [facility] ([place], [place]) [address] [place] [address] Calcium [Mass/Vol] 8.4 mg/dL Low 8.5-9.9 [facility] ([place], [place]) Comment on above: Performed By: #### P GLU #### [facility] ([place], [place]) [address] [place] [address] Chloride [Moles/Vol] 108 mmol/L Critically high 95-107 [facility] ([place], [place]) Comment on above: Performed By: #### P GLU #### [facility] ([place], [place]) [address] [place] [address] CO2 [Moles/Vol] 20 mmol/L Normal 20-31 [facility] ([place], [place]) Comment on above: Performed By: #### P GLU #### [facility] ([place], [place]) [address] [place] [address] Creatinine [Mass/Vol] 0.68 mg/dL Normal 0.50-0.90 [facility] ([place], [place]) Comment on above: Performed By: #### P GLU #### [facility] ([place], [place]) [address] [place] [address] GFR >60.0 Normal >60 [facility] ([place], [place]) Comment on above: Result Comment: Pedi atric [...] secretion. Performed By: #### P GLU #### [facility] ([place], [place]) [address] [place] [address] Globulin (S) [Mass/Vol] 2.3 g/dL Normal 2.3-3.5 [facility] ([place], [place]) Comment on above: Performed By: #### P GLU #### [facility] ([place], [place]) [address] [place] [address] Glucose [Mass/Vol] 82 mg/dL Normal 70-99 [facility] ([place], [place]) Comment on above: Performed By: #### P GLU #### [facility] ([place], [place]) [address] [place] [address] Potassium [Moles/Vol] 3.7 mmol/L Normal 3.4-4.9 [facility] ([place], [place]) Comment on above: Performed By: #### P GLU #### [facility] ([place], [place]) [address] [place] [address] Protein [Mass/Vol] 6.3 g/dL Normal 6.3-8.0 [facility] ([place], [place]) Comment on above: Performed By: #### P GLU #### [facility] ([place], [place]) [address] [place] [address] Sodium [Moles/Vol] 138 mmol/L Normal 135-144 [facility] ([place], [place]) Comment on above: Performed By: #### P GLU #### [facility] ([place], [place]) [address] [place] [address] Urea nitrogen [Mass/Vol] 8 mg/dL Normal 6-20 [facility] ([place], [place]) Comment on above: Performed By: #### P GLU #### [facility] ([place], [place]) [address] [place] [address] High Sensitivity Troponin To n 11-27-2022 High Sensitivity Troponin T <6 Normal 0-19 [facility] ([place], [place]) Comment on above: Result Comment: High Sensitivity Troponin values cannot be compared with other Troponin methodologies. Performed By: #### T RP5 #### [facility] ([place], [place]) [address] [place] [address] High Sensitivity Troponin T <6 Normal 0-19 [facility] ([place], [place]) Comment on above: Result Comment: High Sensitivity Troponin values cannot be compared with other Troponin methodologies. Performed By: #### P GLU #### [facility] ([place], [place]) [address] [place] [address] Lactic Acidon 11-27-2022 Lactate [Moles/Vol] 1.0 mmol/L Normal 0.5-2.2 [facility] ([place], [place]) Comment on above: Performed By: #### P GLU #### [facility] ([place], [place]) [address] [place] [address] Lipaseon 11-27-2022 Lipase [Catalytic activity/Vol] 37 U/L Normal 12-95 [facility] ([place], [place]) Comment on above: Performed By: #### P GLU #### [facility] ([place], [place]) [address] [place] [address] Magnesiumon 11-27-2022 Magnesium [Mass/Vol] 1.9 mg/dL Normal 1.7-2.4 [facility] ([place], [place]) Comment on above: Performed By: #### P GLU #### [facility] ([place], [place]) [address] [place] [address] POCT Venouson 11-27-2022 Creatinine [Mass/Vol] 0.9 mg/dL Normal 0.6-1.2 [facility] ([place], [place]) Comment on above: Performed By: #### L IPAS #### [facility] ([place], [place]) [address] [place] [address] GFR >60 Normal >60 [facility] ([place], [place]) Comment on above: Result Comment: Pedi atric [...] secretion. Performed By: #### L IPAS #### [facility] ([place], [place]) [address] [place] [address] POC Performed on SEE BELOW Normal [facility] ([place], [place]) Comment on above: Result Comment: Perf ormed on POC Performed By: #### L IPAS #### [facility] ([place], [place]) [address] [place] [address] POC Sample Type KIRA Normal [facility] ([place], [place]) Comment on above: Performed By: #### L IPAS #### [facility] ([place], [place]) [address] [place] [address] Urinalysis, reflex to cultur ryder 11-27-2022 Bilirubin Ql (U) Negative Normal Negative [facility] ([place], [place]) Comment on above: Performed By: #### P GLU #### [facility] ([place], [place]) [address] [place] [address] Clarity (U) Clear Normal Clear [facility] ([place], [place]) Comment on above: Performed By: #### P GLU #### [facility] ([place], [place]) [address] [place] [address] Color (U) Yellow Normal Straw/Buchanan [facility] ([place], [place]) Comment on above: Performed By: #### P GLU #### [facility] ([place], [place]) [address] [place] [address] Glucose Ql (U) Negative Normal Negative [facility] ([place], [place]) Comment on above: Performed By: #### P GLU #### [facility] ([place], [place]) [address] [place] [address] Hemoglobin Ql (U) Negative Normal Negative [facility] ([place], [place]) Comment on above: Performed By: #### P GLU #### [facility] ([place], [place]) [address] [place] [address] Ketones Ql (U) Negative Normal Negative [facility] ([place], [place]) Comment on above: Performed By: #### P GLU #### [facility] ([place], [place]) [address] [place] [address] Leukocyte esterase Test strip Ql (U) Negative Normal Negative [facility] ([place], [place]) Comment on above: Performed By: #### P GLU #### [facility] ([place], [place]) [address] [place] [address] Nitrite Ql (U) Negative Normal Negative [facility] ([place], [place]) Comment on above: Performed By: #### P GLU #### [facility] ([place], [place]) [address] [place] [address] pH (U) 7.5 [pH] Normal 5.0-9.0 [facility] ([place], [place]) Comment on above: Performed By: #### P GLU #### [facility] ([place], [place]) [address] [place] [address] Protein Ql (U) Negative Normal Negative [facility] ([place], [place]) Comment on above: Performed By: #### P GLU #### [facility] ([place], [place]) [address] [place] [address] Specific gravity (U) [Rel density] 1.026 Normal 1.005-1.03 [facility] ([place], [place]) Comment on above: Performed By: #### P GLU #### [facility] ([place], [place]) [address] [place] [address] Urine Reflexed to Culture Not Indicated Normal [facility] ([place], [place]) Comment on above: Performed By: #### P GLU #### [facility] ([place], [place]) [address] [place] [address] Urobilinogen Qn (U) 0.2 {Munir'U}/dL Normal < 2.0 [facility] ([place], [place]) Comment on above: Performed By: #### P GLU #### [facility] ([place], [place]) [address] [place] [address] CNNURSEon 11-26-2022 CNNURSE Normal [facility] US MESENTERIC ARTERY CMPLT V LABon 11-26-2022 US MESENTERIC ARTERY CMPLT VAS LAB Normal [facility] Ambulatory Visit Summaryon 1 Ambulatory Visit Summary Normal [address] [place] [address]- \.br\ Medications\.br\ What How Much When Why [...] hours as needed for Pain Pickup at [facility]/pharmacy #[id number]\.br\ Pharmacy Information\.br\ [facility]/pharmacy #[id number]: [address] [place], [place] [id number] [phone]\.br\ Allergies\.br\ NSAIDs (Unknown)\.br\ codeine (unknown)\.br\ Problems\.br\ Ongoing [...] Metabolic syndrome\.br\ PCOS- polycystic ovary syndrome\.br\ \.br\ [facility] CNPNon 11-25-2022 CNPN Normal [facility] Family Medicine Office/Clini c Noteon 11-25-2022 Family Medicine Office/Clinic Note Normal [facility] Comment on above: Result Comment: Elec tronically Signed By: Jaquan Paula\.rene\Date and Time Signed: 11/25/22 13:56 EDT Population Healthon 11-25-19 Population Health Normal [facility] Basic metabolic 2000 panelon 11-23-2022 Anion gap [Moles/Vol] 12 mmol/L Normal 9-18 [facility] Comment on above: Order Comment: Speci men Type: BLOOD SPECIMENOrdering Facility: [facility] Address: [address] [place] [address] Performed By: #### 2 4321-2, 17002-4, ####[facility]ATORYCLIA [id number] [place] [address] [place] Calcium [Mass/Vol] 8.4 mg/dL Low 8.5-10.2 [facility] Comment on above: Order Comment: Speci men Type: BLOOD SPECIMENOrdering Facility: [facility] Address: [address] [place] [address] Performed By: #### 2 4321-2, 26526-2, ####[facility]ATORYCLIA [id number] [place] [address] [place] Chloride [Moles/Vol] 107 mmol/L High 97-105 [facility] Comment on above: Order Comment: Speci men Type: BLOOD SPECIMENOrdering Facility: [facility] Address: [address] [place] [address] Performed By: #### 2 4321-2, 26767-4, ####[facility]ATORYCLIA [id number] [place] [address] [place] CO2 [Moles/Vol] 19 mmol/L Low 22-30 [facility] Comment on above: Order Comment: Speci men Type: BLOOD SPECIMENOrdering Facility: [facility] Address: [address] [place] [address] Performed By: #### 2 4321-2, 32435-5, ####[facility]ATORYCLIA [id number] [place] [address] [place] Creatinine [Mass/Vol] 0.71 mg/dL Normal 0.58-0.96 [facility] Comment on above: Order Comment: Geraldo marrero Type: BLOOD SPECIMENOrdering Facility: [facility] Address: [address] [place] [address] Performed By: #### 2 4321-2, 95350-4, ####[facility] LABORATORYIA [id number] [place] [address] [place] Creatinine and Glomerular filtration rate.predicted panel (S/P/Bld) 115 mL/min/1.73m??? Normal >=60 [facility] Comment on above: Order Comment: [facility] Type: BLOOD SPECIMENOrdering Facility: [facility] Address: [address] [place] [address] Result Comment: Jessica mated Glomerular Filtration Rate [...] actual GFR. Performed By: #### 2 4321-2, 62946-8, ####[facility]ORATORYIA [id number] [place] [address] [place] Glucose [Mass/Vol] 105 mg/dL High 74-99 [facility] Comment on above: Order Comment: Geraldo marrero Type: BLOOD SPECIMENOrdering Facility: [facility] Address: [address] [place] [address] Result Comment: The [place] [employer] (ADA) provides guidance for cutoff [...] Standards of Medical Care in Diabetes 2016, [place] [employer]. Diabetes Care. 2016.39(Suppl 1). Performed By: #### 2 4321-2, 93393-4, ####[facility]ATORYCLIA [id number] [place] [address] [place] Potassium [Moles/Vol] 3.8 mmol/L Normal 3.7-5.1 [facility] Comment on above: Order Comment: Geraldo marrero Type: BLOOD SPECIMENOrdering Facility: [facility] Address: [address] [place] [address] Performed By: #### 2 4321-2, 50873-2, ####[facility] [id number] [place] [address] [place] Sodium [Moles/Vol] 138 mmol/L Normal 136-144 [facility] Comment on above: Order Comment: Geraldo marrero Type: BLOOD SPECIMENOrdering Facility: [facility] Address: [address] [place] [address] Performed By: #### 2 4321-2, 85143-0, ####[facility] [id number] [place] [address] [place] Urea nitrogen [Mass/Vol] 7 mg/dL Normal 7-21 [facility] Comment on above: Order Comment: Lyssai elida Type: BLOOD SPECIMENOrdering Facility: [facility] Address: [address] [place] [address] Performed By: #### 2 4321-2, 82959-5, ####[facility]ATORYCLIA [id number] [place] [address] [place] CASE MGT INIT Uli 2022 CASE MGT INIT [facility] CBC panel Auto (Bld)on 11-23 Erythrocyte distribution width (RBC) [Ratio] 13.6 % Normal 11.5-15.0 [facility] Comment on above: Order Comment: Speci men Type: BLOOD SPECIMENOrdering Facility: [facility] Address: [address] [place] [address] Performed By: #### 5 8410-2 ####[facility]ORATORYIA [id number] [place] [address] [place] Hematocrit (Bld) [Volume fraction] 36.4 % Normal 36.0-46.0 [facility] Comment on above: Order Comment: Speci men Type: BLOOD SPECIMENOrdering Facility: [facility] Address: [address] [place] [address] Performed By: #### 5 8410-2 ####[facility]ATORYIA [id number] [place] [address] [place] Hemoglobin (Bld) [Mass/Vol] 11.8 g/dL Normal 11.5-15.5 [facility] Comment on above: Order Comment: Speci men Type: BLOOD SPECIMENOrdering Facility: [facility] Address: [address] [place] [address] Performed By: #### 5 8410-2 ####[facility]ORATORYIA [id number] [place] [id number] [place] MCH (RBC) [Entitic mass] 30.4 pg Normal 26.0-34.0 [facility] Comment on above: Order Comment: Speci men Type: BLOOD SPECIMENOrdering Facility: [facility] Address: [address] [place] [address] Performed By: #### 5 8410-2 ####[facility]ORATORYIA [id number] [place] [id number] [place] MCHC (RBC) [Mass/Vol] 32.4 g/dL Normal 30.5-36.0 [facility] Comment on above: Order Comment: Speci men Type: BLOOD SPECIMENOrdering Facility: [facility] Address: [address] [place] [address] Performed By: #### 5 8410-2 ####[facility]ATORYIA [id number] [place] [address] [place] MCV (RBC) [Entitic vol] 93.8 fL Normal 80.0-100.0 [facility] Comment on above: Order Comment: Speci men Type: BLOOD SPECIMENOrdering Facility: [facility] Address: [address] [place] [address] Performed By: #### 5 8410-2 ####[facility] [id number] [place] [address] [place] Nucleated RBC (Bld) [#/Vol] 10*3/uL Normal <0.01 [facility] Comment on above: Order Comment: Speci men Type: BLOOD SPECIMENOrdering Facility: [facility] Address: [address] [place] [address] Performed By: #### 5 8410-2 ####[facility] [id number] [place] [address] [place] Platelet mean volume (Bld) [Entitic vol] 10.9 fL Normal 9.0-12.7 [facility] Comment on above: Order Comment: Speci men Type: BLOOD SPECIMENOrdering Facility: [facility] Address: [address] [place] [address] Performed By: #### 5 8410-2 ####[facility]ATORYIA [id number] [place] [address] [place] Platelets (Bld) [#/Vol] 217 10*3/uL Normal 150-400 [facility] Comment on above: Order Comment: Speci men Type: BLOOD SPECIMENOrdering Facility: [facility] Address: [address] [place] [address] Performed By: #### 5 8410-2 ####[facility]ATORYIA [id number] [place] [address] [place] RBC (Bld) [#/Vol] 3.88 10*6/uL Low 3.90-5.20 [facility] Comment on above: Order Comment: Speci men Type: BLOOD SPECIMENOrdering Facility: [facility] Address: [address] [place] [address] Performed By: #### 5 8410-2 ####[facility]ORATORYCLIA [id number] [place] [address] [place] WBC (Bld) [#/Vol] 3.45 10*3/uL Low 3.70-11.00 [facility] Comment on above: Order Comment: Speci men Type: BLOOD SPECIMENOrdering Facility: [facility] Address: [address] [place] [address] Performed By: #### 5 8410-2 ####[facility] [id number] [place] [address] [place] CNDSon 11-23-2022 CNDS Normal [facility] CNPNon 11-23-2022 CNPN Normal [facility] CONSULTon 11-23-2022 CONSULT Normal [facility] Hepatic function 2000 panelo n 11-23-2022 Albumin [Mass/Vol] 3.5 g/dL Low 3.9-4.9 [facility] Comment on above: Order Comment: Speci men Type: BLOOD SPECIMENOrdering Facility: [facility] Address: [address] [place] [address] Performed By: #### 2 4321-2, 19376-8, ####[facility]ORATORYCLIA [id number] [place] [address] [place] ALP [Catalytic activity/Vol] 58 U/L Normal 34-123 [facility] Comment on above: Order Comment: Speci men Type: BLOOD SPECIMENOrdering Facility: [facility] Address: [address] [place] [address] Performed By: #### 2 4321-2, 65738-3, ####[facility]ORATORYCLIA [id number] [place] [address] [place] ALT [Catalytic activity/Vol] 17 U/L Normal 7-38 [facility] Comment on above: Order Comment: Speci men Type: BLOOD SPECIMENOrdering Facility: [facility] Address: [address] [place] [address] Performed By: #### 2 4321-2, 57394-7, ####[facility]ATORYCLIA [id number] [place] [address] [place] AST [Catalytic activity/Vol] 34 U/L Normal 13-35 [facility] Comment on above: Order Comment: Speci men Type: BLOOD SPECIMENOrdering Facility: [facility] Address: [address] [place] [address] Performed By: #### 2 4321-2, 92932-1, ####[facility]ATORYCLIA [id number] [place] [address] [place] Bilirubin [Mass/Vol] 0.4 mg/dL Normal 0.2-1.3 [facility] Comment on above: Order Comment: Speci men Type: BLOOD SPECIMENOrdering Facility: [facility] Address: [address] [place] [address] Performed By: #### 2 4321-2, 28111-4, ####[facility]ORATORYCLIA [id number] [place] [address] [place] Bilirubin.conjugate d [Mass/Vol] mg/dL Normal <0.2 [facility] Comment on above: Order Comment: Speci men Type: BLOOD SPECIMENOrdering Facility: [facility] Address: [address] [place] [address] Performed By: #### 2 4321-2, 84982-1, ####[facility]ORATORYCLIA [id number] [place] [address] [place] Protein [Mass/Vol] 5.9 g/dL Low 6.3-8.0 [facility] Comment on above: Order Comment: Speci men Type: BLOOD SPECIMENOrdering Facility: [facility] Address: [address] [place] [address] Performed By: #### 2 4321-2, 63145-0, ####[facility] [id number] [place] [id number] [place] Magnesium SerPl-mCncon 11-23 Magnesium [Mass/Vol] 1.8 mg/dL Normal 1.7-2.3 [facility] Comment on above: Order Comment: Speci men Type: BLOOD SPECIMENOrdering Facility: [facility] Address: [address] [place] [address] Performed By: #### 2 4321-2, 75589-6, ####[facility] [id number] [place] [address] [place] CBC W Auto Differential pane l (Bld)on 11-22-2022 Basophils (Bld) [#/Vol] 0.03 10*3/uL Normal <0.11 [facility] Comment on above: Order Comment: Speci men Type: BLOOD SPECIMENOrdering Facility: [facility] Address: [address] [place] [address] Performed By: #### 5 7021-8 ####[facility] [id number] [place] [address] [place] Basophils/100 WBC (Bld) 0.6 % Normal [facility] Comment on above: Order Comment: Speci men Type: BLOOD SPECIMENOrdering Facility: [facility] Address: [address] [place] [address] Performed By: #### 5 7021-8 ####[facility] [id number] [place] [id number] [place] Differential cell count method Nom (Bld) Auto Normal [facility] Comment on above: Order Comment: Speci men Type: BLOOD SPECIMENOrdering Facility: [facility] Address: [address] [place] [address] Performed By: #### 5 7021-8 ####[facility]ORATORYIA [id number] [place] [address] [place] Eosinophils (Bld) [#/Vol] 0.08 10*3/uL Normal <0.46 [facility] Comment on above: Order Comment: Speci men Type: BLOOD SPECIMENOrdering Facility: [facility] Address: [address] [place] [address] Performed By: #### 5 7021-8 ####[facility]ATORYCLIA [id number] [place] [address] [place] Eosinophils/100 WBC (Bld) 1.7 % Normal [facility] Comment on above: Order Comment: Speci men Type: BLOOD SPECIMENOrdering Facility: [facility] Address: [address] [place] [address] Performed By: #### 5 7021-8 ####[facility] [id number] [place] [address] [place] Erythrocyte distribution width (RBC) [Ratio] 13.4 % Normal 11.5-15.0 [facility] Comment on above: Order Comment: Speci men Type: BLOOD SPECIMENOrdering Facility: [facility] Address: [address] [place] [address] Performed By: #### 5 7021-8 ####[facility] [id number] [place] [address] [place] Hematocrit (Bld) [Volume fraction] 40.4 % Normal 36.0-46.0 [facility] Comment on above: Order Comment: Speci men Type: BLOOD SPECIMENOrdering Facility: [facility] Address: [address] [place] [address] Performed By: #### 5 7021-8 ####[facility]ATORYIA [id number] [place] [address] [place] Hemoglobin (Bld) [Mass/Vol] 13.8 g/dL Normal 11.5-15.5 [facility] Comment on above: Order Comment: Speci men Type: BLOOD SPECIMENOrdering Facility: [facility] Address: [address] [place] [address] Performed By: #### 5 7021-8 ####[facility]ORATORYCLIA [id number] [facility] [place] [address] [place] Immature granulocytes (Bld) [#/Vol] 10*3/uL Normal <0.10 [facility] Comment on above: Order Comment: Speci men Type: BLOOD SPECIMENOrdering Facility: [facility] Address: [address] [place] [address] Performed By: #### 5 7021-8 ####[facility]ATORYCLIA [id number] [place] [address] [place] Immature granulocytes/100 WBC (Bld) 0.2 % Normal [facility] Comment on above: Order Comment: Speci men Type: BLOOD SPECIMENOrdering Facility: [facility] Address: [address] [place] [address] Performed By: #### 5 7021-8 ####[facility] [id number] [place] [id number] [place] Lymphocytes (Bld) [#/Vol] 2.01 10*3/uL Normal 1.00-4.00 [facility] Comment on above: Order Comment: Speci men Type: BLOOD SPECIMENOrdering Facility: [facility] Address: [address] [place] [address] Performed By: #### 5 7021-8 ####[facility] [id number] [place] [id number] [place] Lymphocytes/100 WBC (Bld) 42.2 % Normal [facility] Comment on above: Order Comment: Speci men Type: BLOOD SPECIMENOrdering Facility: [facility] Address: [address] [place] [address] Performed By: #### 5 7021-8 ####[facility] [id number] [place] [address] [place] MCH (RBC) [Entitic mass] 31.2 pg Normal 26.0-34.0 [facility] Comment on above: Order Comment: Speci men Type: BLOOD SPECIMENOrdering Facility: [facility] Address: [address] [place] [address] Performed By: #### 5 7021-8 ####[facility] [id number] [place] [id number] [place] MCHC (RBC) [Mass/Vol] 34.2 g/dL Normal 30.5-36.0 [facility] Comment on above: Order Comment: Speci men Type: BLOOD SPECIMENOrdering Facility: [facility] Address: [address] [place] [address] Performed By: #### 5 7021-8 ####[facility] [id number] [place] [address] [place] MCV (RBC) [Entitic vol] 91.4 fL Normal 80.0-100.0 [facility] Comment on above: Order Comment: Speci men Type: BLOOD SPECIMENOrdering Facility: [facility] Address: [address] [place] [address] Performed By: #### 5 7021-8 ####[facility] [id number] [place] [address] [place] Monocytes (Bld) [#/Vol] 0.25 10*3/uL Normal <0.87 [facility] Comment on above: Order Comment: Speci men Type: BLOOD SPECIMENOrdering Facility: [facility] Address: [address] [place] [address] Performed By: #### 5 7021-8 ####[facility] [id number] [place] [address] [place] Monocytes/100 WBC (Bld) 5.3 % Normal [facility] Comment on above: Order Comment: Speci men Type: BLOOD SPECIMENOrdering Facility: [facility] Address: [address] [place] [address] Performed By: #### 5 7021-8 ####[facility]ATORYIA [id number] [place] [id number] [place] Neutrophils (Bld) [#/Vol] 2.38 10*3/uL Normal 1.45-7.50 [facility] Comment on above: Order Comment: Speci men Type: BLOOD SPECIMENOrdering Facility: [facility] Address: [address] [place] [address] Performed By: #### 5 7021-8 ####[facility]ATORYCLIA [id number] [place] [address] [place] Neutrophils/100 WBC (Bld) 50.0 % Normal [facility] Comment on above: Order Comment: Speci men Type: BLOOD SPECIMENOrdering Facility: [facility] Address: [address] [place] [address] Performed By: #### 5 7021-8 ####[facility]ATORYCLIA [id number] [place] [address] [place] Nucleated RBC (Bld) [#/Vol] 10*3/uL Normal <0.01 [facility] Comment on above: Order Comment: Speci men Type: BLOOD SPECIMENOrdering Facility: [facility] Address: [address] [place] [address] Performed By: #### 5 7021-8 ####[facility] [id number] [place] [id number] [place] Nucleated RBC/100 WBC (Bld) [Ratio] 0.0 /100 WBC Normal [facility] Comment on above: Order Comment: Speci men Type: BLOOD SPECIMENOrdering Facility: [facility] Address: [address] [place] [address] Performed By: #### 5 7021-8 ####[facility]ORATORYCLIA [id number] [facility] [place] [address] [place] Platelet mean volume (Bld) [Entitic vol] 11.1 fL Normal 9.0-12.7 [facility] Comment on above: Order Comment: Speci men Type: BLOOD SPECIMENOrdering Facility: [facility] Address: [address] [place] [address] Performed By: #### 5 7021-8 ####[facility]ATORYIA [id number] [place] [id number] [facility] [place] Platelets (Bld) [#/Vol] 282 10*3/uL Normal 150-400 [facility] Comment on above: Order Comment: Speci men Type: BLOOD SPECIMENOrdering Facility: [facility] Address: [address] [place] [address] Performed By: #### 5 7021-8 ####[facility]ATORYCLIA [id number] [place] [address] [place] RBC (Bld) [#/Vol] 4.42 10*6/uL Normal 3.90-5.20 [facility] Comment on above: Order Comment: Speci men Type: BLOOD SPECIMENOrdering Facility: [facility] Address: [address] [place] [address] Performed By: #### 5 7021-8 ####[facility]ATORYCLIA [id number] [place] [address] [place] [facility] WBC (Bld) [#/Vol] 4.76 10*3/uL Normal 3.70-11.00 [facility] Comment on above: Order Comment: Speci men Type: BLOOD SPECIMENOrdering Facility: [facility] Address: [address] [place] [address] Performed By: #### 5 7021-8 ####[facility]ATORYCLIA [id number] [place] [address] [address] ABD/PEL W IVCONon 023 CT ABD/PEL W IVCON Normal [facility] Comprehensive metabolic 2000 panelon 11-22-2022 Albumin [Mass/Vol] 4.4 g/dL Normal 3.9-4.9 [facility] Comment on above: Order Comment: Speci men Type: BLOOD SPECIMENOrdering Facility: [facility] Address: [address] [place] [address] Performed By: #### 1 9123-9, 08203-7, 3040-3 ####[facility]ATORYCLIA [id number] [place] [address] [place] ALP [Catalytic activity/Vol] 73 U/L Normal 34-123 [facility] Comment on above: Order Comment: Speci men Type: BLOOD SPECIMENOrdering Facility: [facility] Address: [address] [place] [address] Performed By: #### 1 9123-9, 70706-0, 0-3 ####[facility]ATORYCLIA [id number] [place] [address] [place] ALT [Catalytic activity/Vol] 21 U/L Normal 7-38 [facility] Comment on above: Order Comment: Speci men Type: BLOOD SPECIMENOrdering Facility: [facility] Address: [address] [place] [address] Performed By: #### 1 9123-9, 81484-1, 0-3 ####[facility]ATORYCLIA [id number] [place] [address] [place] Anion gap [Moles/Vol] 11 mmol/L Normal 9-18 [facility] Comment on above: Order Comment: Speci men Type: BLOOD SPECIMENOrdering Facility: [facility] Address: [address] [place] [address] Performed By: #### 1 9123-9, 29864-2, 0-3 ####[facility]ATORYIA [id number] [place] [address] [place] AST [Catalytic activity/Vol] 39 U/L High 13-35 [facility] Comment on above: Order Comment: Speci men Type: BLOOD SPECIMENOrdering Facility: [facility] Address: [address] [place] [address] Performed By: #### 1 9123-9, 13288-0, 3040-3 ####[facility]ATORYCLIA [id number] [place] [address] [place] Bilirubin [Mass/Vol] 0.3 mg/dL Normal 0.2-1.3 [facility] Comment on above: Order Comment: Speci men Type: BLOOD SPECIMENOrdering Facility: [facility] Address: [address] [place] [address] Performed By: #### 1 9123-9, 00131-1, 0-3 ####[facility]ATORYCLIA [id number] [facility] [place] [address] [place] Calcium [Mass/Vol] 8.7 mg/dL Normal 8.5-10.2 [facility] Comment on above: Order Comment: Speci men Type: BLOOD SPECIMENOrdering Facility: [facility] Address: [address] [place] [address] Performed By: #### 1 9123-9, 70795-0, 0-3 ####[facility]ATORYCLIA [id number] [place] [address] [place] Chloride [Moles/Vol] 106 mmol/L High 97-105 [facility] Comment on above: Order Comment: Speci men Type: BLOOD SPECIMENOrdering Facility: [facility] Address: [address] [place] [address] Performed By: #### 1 9123-9, 98848-7, 0-3 ####[facility] [id number] [place] [address] [place] CO2 [Moles/Vol] 22 mmol/L Normal 22-30 [facility] Comment on above: Order Comment: Speci men Type: BLOOD SPECIMENOrdering Facility: [facility] Address: [address] [place] [address] Performed By: #### 1 9123-9, 24543-0, 0-3 ####[facility]ATORYIA [id number] [place] [address] [place] Creatinine [Mass/Vol] 0.80 mg/dL Normal 0.58-0.96 [facility] Comment on above: Order Comment: Speci men Type: BLOOD SPECIMENOrdering Facility: [facility] Address: [address] [place] [address] Performed By: #### 1 9123-9, 49665-9, 0-3 ####[facility]ATORYCLIA [id number] [place] [address] [place] Creatinine and Glomerular filtration rate.predicted panel (S/P/Bld) 100 mL/min/1.73m??? Normal >=60 [facility] Comment on above: Order Comment: Geraldo marrero Type: BLOOD SPECIMENOrdering Facility: [facility] Address: [address] [place] [address] Result Comment: Jessica mated Glomerular Filtration Rate [...] actual GFR. Performed By: #### 1 9123-9, 75174-7, 3040-3 ####[facility]ORATORYCLIA [id number] [facility] [place] [address] [place] Glucose [Mass/Vol] 88 mg/dL Normal 74-99 [facility] Comment on above: Order Comment: Geraldo marrero Type: BLOOD SPECIMENOrdering Facility: [facility] Address: [address] [place] [address] Result Comment: The [place] [employer] (ADA) provides guidance for cutoff [...] Standards of Medical Care in Diabetes 2016, [place] [employer]. Diabetes Care. 2016.39(Suppl 1). Performed By: #### 1 9123-9, 28472-3, 3040-3 ####[facility]ORATORYCLIA [id number] [facility] [place] [address] [place] Potassium [Moles/Vol] 3.9 mmol/L Normal 3.7-5.1 [facility] Comment on above: Order Comment: Speci men Type: BLOOD SPECIMENOrdering Facility: [facility] Address: [address] [place] [address] Performed By: #### 1 9123-9, 42504-8, 0-3 ####[facility]ATORYCLIA [id number] [place] [address] [place] Protein [Mass/Vol] 7.1 g/dL Normal 6.3-8.0 [facility] Comment on above: Order Comment: Speci men Type: BLOOD SPECIMENOrdering Facility: [facility] Address: [address] [place] [address] Performed By: #### 1 9123-9, 76324-9, 0-3 ####[facility] [id number] [place] [address] [place] Sodium [Moles/Vol] 139 mmol/L Normal 136-144 [facility] Comment on above: Order Comment: Speci men Type: BLOOD SPECIMENOrdering Facility: [facility] Address: [address] [place] [address] Performed By: #### 1 9123-9, 41439-0, 0-3 ####[facility] [id number] [place] [address] [place] Urea nitrogen [Mass/Vol] 8 mg/dL Normal 7-21 [facility] Comment on above: Order Comment: Speci men Type: BLOOD SPECIMENOrdering Facility: [facility] Address: [address] [place] [id number] Performed By: #### 1 9123-9, 57660-6, 3040-3 ####[facility]ATORYIA [id number] [place] [address] [place] ECG COMPLETEon 11-22-2022 ECG COMPLETE Normal [facility] ED NOTEon 11-22-2022 ED NOTE HNO ID: [id number] Author: Lady Garza RN Service: Emergency Medicine Author Type: Registered Nurse Type: ED Notes Filed: 11/22/2022 3:21 PM Note Text: Report to [facility] PRICE Normal [facility] ED PROV NOTEon 11-22-2022 ED PROV NOTE Normal [facility] HISTORY PHYSICALon HISTORY PHYSICAL Normal [facility] Lipase SerPl-cCncon 11-23-19 Lipase [Catalytic activity/Vol] 45 U/L Normal 16-61 [facility] Comment on above: Order Comment: Speci men Type: BLOOD SPECIMENOrdering Facility: [facility] Address: [address] [place] [address] Performed By: #### 1 9123-9, 23725-1, 3040-3 ####[facility] [id number] [place] [address] [place] Magnesium SerPl-mCncon 11-22 Magnesium [Mass/Vol] 1.9 mg/dL Normal 1.7-2.3 [facility] Comment on above: Order Comment: Speci men Type: BLOOD SPECIMENOrdering Facility: [facility] Address: [address] [place] [address] Performed By: #### 1 9123-9, 91861-1, 3040-3 ####[facility] [id number] [place] [address] [place] NURSING PROGon 11-22-2022 NURSING PROG [facility] Urinal[facility] complete panel (U )on 11-22-2022 Bilirubin Ql (U) Negative Normal Negative [facility] Comment on above: Order Comment: Speci men Type: URINE SPECIMENOrdering Facility: [facility] Address: [address] [place] [address] Performed By: #### 2 4356-8 ####[facility] [id number] [place] [address] [place] Clarity (Unsp spec) Clear Normal Clear [facility] Comment on above: Order Comment: Speci men Type: URINE SPECIMENOrdering Facility: [facility] Address: [address] [place] [address] Performed By: #### 2 4356-8 ####[facility] [id number] [place] [address] [place] Color (U) Light Yellow Normal yellow [facility] Comment on above: Order Comment: Speci men Type: URINE SPECIMENOrdering Facility: [facility] Address: [address] [place] [address] Performed By: #### 2 4356-8 ####[facility] [id number] [place] [address] [place] Epithelial cells LM.HPF (Urine sed) [#/Area] Few Normal [facility] Comment on above: Order Comment: Speci men Type: URINE SPECIMENOrdering Facility: [facility] Address: [address] [place] [address] Performed By: #### 2 4356-8 ####[facility] [id number] [place] [address] [place] Glucose Test strip (U) [Mass/Vol] Negative Normal Trace, Negative [facility] Comment on above: Order Comment: Speci men Type: URINE SPECIMENOrdering Facility: [facility] Address: [address] [place] [address] Performed By: #### 2 4356-8 ####[facility] [id number] [place] [address] [place] Hemoglobin Ql (U) Negative Normal Negative, Trace [facility] Comment on above: Order Comment: Speci men Type: URINE SPECIMENOrdering Facility: [facility] Address: [address] [place] [address] Performed By: #### 2 4356-8 ####[facility] [id number] [place] [id number] [place] Ketones Ql (U) Negative Normal Negative, Trace [facility] Comment on above: Order Comment: Speci men Type: URINE SPECIMENOrdering Facility: [facility] Address: [address] [place] [address] Performed By: #### 2 4356-8 ####[facility] [id number] [address] [place] Leukocyte esterase Test strip Ql (U) Negative Normal Negative, 25 Patito/uL [facility] Comment on above: Order Comment: Speci men Type: URINE SPECIMENOrdering Facility: [facility] Address: [address] [place] [address] Performed By: #### 2 4356-8 ####[facility] [id number] [address] [place] Nitrite Ql (U) Negative Normal Negative [facility] Comment on above: Order Comment: Speci men Type: URINE SPECIMENOrdering Facility: [facility] Address: [address] [place] [address] Performed By: #### 2 4356-8 ####[facility] [id number] [address] [place] pH (U) 7.0 [pH] Normal 5.0-8.0 [facility] Comment on above: Order Comment: Speci men Type: URINE SPECIMENOrdering Facility: [facility] Address: [address] [place] [address] Performed By: #### 2 4356-8 ####[facility] [id number] [address] [place] Protein (U) [Mass/Vol] Negative Normal Trace, Negative [facility] Comment on above: Order Comment: Speci men Type: URINE SPECIMENOrdering Facility: [facility] Address: [address] [place] [address] Performed By: #### 2 4356-8 ####[facility] [id number] [place] [address] [place] RBC LM.HPF (Urine sed) [#/Area] 0-3 /HPF Normal 0-3 /HPF [facility] Comment on above: Order Comment: Speci men Type: URINE SPECIMENOrdering Facility: [facility] Address: [address] [place] [address] Performed By: #### 2 4356-8 ####[facility]ORATORYCLIA [id number] [place] [address] [place] Specific gravity (U) [Rel density] 1.020 Normal 1.005-1.030 [facility] Comment on above: Order Comment: Speci men Type: URINE SPECIMENOrdering Facility: [facility] Address: [address] [place] [address] Performed By: #### 2 4356-8 ####[facility]ORATORYIA [id number] [place] [address] [place] Urobilinogen Ql (U) Normal Normal Negative [facility] Comment on above: Order Comment: Speci men Type: URINE SPECIMENOrdering Facility: [facility] Address: [address] [place] [address] Performed By: #### 2 4356-8 ####[facility] [id number] [place] [address] [place] WBC LM.HPF (Urine sed) [#/Area] 0-5 /HPF Normal 0-5 /HPF [facility] Comment on above: Order Comment: Speci men Type: URINE SPECIMENOrdering Facility: [facility] Address: [address] [place] [address] Performed By: #### 2 4356-8 ####[facility] [id number] [place] [address] [place] XR CHEST 2V FRONTAL/LATon XR CHEST 2V FRONTAL/LAT Normal [facility] CNPNon 11-20-2022 CNPN Normal [facility] Basic metabolic 2000 panelon 11-19-2022 Anion gap [Moles/Vol] 11 mmol/L Normal 9-18 [facility] Comment on above: Order Comment: Speci men Type: BLOOD SPECIMENOrdering Facility: [facility] Address: [address] [place] [address] Performed By: #### 1 9123-9, 01132-7, 2777-1 ####[facility]ORYCLIA [id number] [place] [address] [place] Calcium [Mass/Vol] 8.9 mg/dL Normal 8.5-10.2 [facility] Comment on above: Order Comment: Speci men Type: BLOOD SPECIMENOrdering Facility: [facility] Address: [address] [place] [address] Performed By: #### 1 9123-9, 32739-9, 2776-02 ####[facility]ATORYCLIA [id number] [place] [address] [place] Chloride [Moles/Vol] 104 mmol/L Normal 97-105 [facility] Comment on above: Order Comment: Speci men Type: BLOOD SPECIMENOrdering Facility: [facility] Address: [address] [place] [address] Performed By: #### 1 9123-9, 03136-1, 2776-02 ####[facility]ATORYCLIA [id number] [place] [address] [place] CO2 [Moles/Vol] 25 mmol/L Normal 22-30 [facility] Comment on above: Order Comment: Speci men Type: BLOOD SPECIMENOrdering Facility: [facility] Address: [address] [place] [address] Performed By: #### 1 9123-9, 88135-4, 2776-02 ####[facility] LABORATORYCLIA [id number] [address] [place] Creatinine [Mass/Vol] 0.82 mg/dL Normal 0.58-0.96 [facility] Comment on above: Order Comment: Speci men Type: BLOOD SPECIMENOrdering Facility: [facility] Address: [address] [place] [address] Performed By: #### 1 9123-9, 21501-2, 2776- ####[facility] LABORATORYCLIA [id number] [address] [place] Creatinine and Glomerular filtration rate.predicted panel (S/P/Bld) 97 mL/min/1.73m??? Normal >=60 [facility] Comment on above: Order Comment: Speci men Type: BLOOD SPECIMENOrdering Facility: [facility] Address: [address] [place] [address] Result Comment: Jessica mated Glomerular Filtration Rate [...] actual GFR. Performed By: #### 1 9123-9, 50905-4, 2776- ####[facility] LABORATORYCLIA [id number] [place] [id number] [place] Glucose [Mass/Vol] 80 mg/dL Normal 74-99 [facility] Comment on above: Order Comment: Geraldo marrero Type: BLOOD SPECIMENOrdering Facility: [facility] Address: [address] [place] [address] Result Comment: The [place] [employer] (ADA) provides guidance for cutoff [...] Standards of Medical Care in Diabetes 2016, [place] [employer]. Diabetes Care. 2016.39(Suppl 1). Performed By: #### 1 9123-9, 70846-1, 2776-02 ####[facility] LABORATORYCLIA [id number] [place] [address] [place] Potassium [Moles/Vol] 4.2 mmol/L Normal 3.7-5.1 [facility] Comment on above: Order Comment: Geraldo marrero Type: BLOOD SPECIMENOrdering Facility: [facility] Address: [address] [place] [address] Performed By: #### 1 9123-9, 62351-3, 2776-02 ####[facility] LABORATORYCLIA [id number] [place] [address] [place] Sodium [Moles/Vol] 140 mmol/L Normal 136-144 [facility] Comment on above: Order Comment: Speci men Type: BLOOD SPECIMENOrdering Facility: [facility] Address: [address] [place] [address] Performed By: #### 1 9123-9, 38840-8, 2777-1 ####[facility] LABORATORYCLIA [id number] [place] [address] [place] Urea nitrogen [Mass/Vol] 6 mg/dL Low 7-21 [facility] Comment on above: Order Comment: Speci men Type: BLOOD SPECIMENOrdering Facility: [facility] Address: [address] [place] [address] Performed By: #### 1 9123-9, 44952-7, 2777-1 ####[facility] LABORATORYCLIA [id number] [place] [id number] [place] CBC panel Auto (Bld)on 11-19 Erythrocyte distribution width (RBC) [Ratio] 13.2 % Normal 11.5-15.0 [facility] Comment on above: Order Comment: Speci men Type: BLOOD SPECIMENOrdering Facility: [facility] Address: [address] [place] [address] Performed By: #### 5 8410-2 ####[facility] LABORATORYCLIA [id number] [address] [place] Hematocrit (Bld) [Volume fraction] 36.3 % Normal 36.0-46.0 [facility] Comment on above: Order Comment: Speci men Type: BLOOD SPECIMENOrdering Facility: [facility] Address: [address] [place] [address] Performed By: #### 5 8410-2 ####[facility] LABORATORYCLIA [id number] [place] [address] [place] Hemoglobin (Bld) [Mass/Vol] 12.4 g/dL Normal 11.5-15.5 [facility] Comment on above: Order Comment: Speci men Type: BLOOD SPECIMENOrdering Facility: [facility] Address: [address] [place] [address] Performed By: #### 5 8410-2 ####[facility] LABORATORYCLIA [id number] [address] MCH (RBC) [Entitic mass] 30.4 pg Normal 26.0-34.0 [facility] Comment on above: Order Comment: Speci men Type: BLOOD SPECIMENOrdering Facility: [facility] Address: [address] [place] [address] Performed By: #### 5 8410-2 ####[facility] LABORATORYCLIA [id number] [address] MCHC (RBC) [Mass/Vol] 34.2 g/dL Normal 30.5-36.0 [facility] Comment on above: Order Comment: Speci men Type: BLOOD SPECIMENOrdering Facility: [facility] Address: [address] [place] [address] Performed By: #### 5 8410-2 ####[facility] LABORATORYCLIA [id number] [address] [place] MCV (RBC) [Entitic vol] 89.0 fL Normal 80.0-100.0 [facility] Comment on above: Order Comment: Speci men Type: BLOOD SPECIMENOrdering Facility: [facility] Address: [address] [place] [address] Performed By: #### 5 8410-2 ####[facility] LABORATORYCLIA [id number] [address] Nucleated RBC (Bld) [#/Vol] 10*3/uL Normal <0.01 [facility] Comment on above: Order Comment: Speci men Type: BLOOD SPECIMENOrdering Facility: [facility] Address: [address] [place] [address] Performed By: #### 5 8410-2 ####[facility] LABORATORYCLIA [id number] [address] [place] Platelet mean volume (Bld) [Entitic vol] 11.3 fL Normal 9.0-12.7 [facility] Comment on above: Order Comment: Speci men Type: BLOOD SPECIMENOrdering Facility: [facility] Address: [place] [address] Performed By: #### 5 8410-2 ####[facility] LABORATORYCLIA [id number] [place] [address] [place] Platelets (Bld) [#/Vol] 239 10*3/uL Normal 150-400 [facility] Comment on above: Order Comment: Speci men Type: BLOOD SPECIMENOrdering Facility: [facility] Address: [address] [place] [address] Performed By: #### 5 8410-2 ####[facility] LABORATORYCLIA [id number] [place] [address] [place] RBC (Bld) [#/Vol] 4.08 10*6/uL Normal 3.90-5.20 [facility] Comment on above: Order Comment: Speci men Type: BLOOD SPECIMENOrdering Facility: [facility] Address: [address] [place] [address] Performed By: #### 5 8410-2 ####[facility] LABORATORYCLIA [id number] [place] [address] [place] WBC (Bld) [#/Vol] 2.99 10*3/uL Low 3.70-11.00 [facility] Comment on above: Order Comment: Speci men Type: BLOOD SPECIMENOrdering Facility: [facility] Address: [address] [place] [address] Performed By: #### 5 8410-2 ####[facility] LABORATORYCLIA [id number] [place] [address] [place] CNDSon 11-19-2022 CNDS Normal [facility] Magnesium SerPl-mCncon 11-19 Magnesium [Mass/Vol] 1.9 mg/dL Normal 1.7-2.3 [facility] Comment on above: Order Comment: Speci men Type: BLOOD SPECIMENOrdering Facility: [facility] Address: [address] [place] [address] Performed By: #### 1 9123-9, 21152-1, 2777-1 ####[facility] LABORATORYCLIA [id number] [place] [address] [facility] [place] NURSING PROGon 11-19-2022 NURSING PROG Normal [facility] Phosphate SerPl-mCncon 11-19 Phosphate [Mass/Vol] 4.1 mg/dL Normal 2.7-4.8 [facility] Comment on above: Order Comment: Speci men Type: BLOOD SPECIMENOrdering Facility: [facility] Address: [address] [place] [address] Performed By: #### 1 9123-9, 24131-6, 2777-1 ####[facility] LABORATORYCLIA [id number] [address] Basic metabolic 2000 panelon 11-18-2022 Anion gap [Moles/Vol] 10 mmol/L Normal 9-18 [facility] Comment on above: Order Comment: Speci men Type: BLOOD SPECIMENOrdering Facility: [facility] Address: [address] [place] [address] Performed By: #### 2 4321-2 ####[facility] LABORATORYCLIA [id number] [place] [address] [place] Calcium [Mass/Vol] 8.8 mg/dL Normal 8.5-10.2 [facility] Comment on above: Order Comment: Speci men Type: BLOOD SPECIMENOrdering Facility: [facility] Address: [address] Performed By: #### 2 4321-2 ####[facility] LABORATORYCLIA [id number] [place] [address] [place] Chloride [Moles/Vol] 105 mmol/L Normal 97-105 [facility] Comment on above: Order Comment: Speci men Type: BLOOD SPECIMENOrdering Facility: [facility] Address: [address] Performed By: #### 2 4321-2 ####[facility] LABORATORYCLIA [id number] [address] OF [facility] CO2 [Moles/Vol] 22 mmol/L Normal 22-30 [facility] Comment on above: Order Comment: Speci elida Type: BLOOD SPECIMENOrdering Facility: [facility] Address: [address] [place] [address] Performed By: #### 2 4321-2 ####[facility] LABORATORYCLIA [id number] [address] STATES OF [facility] Creatinine [Mass/Vol] 0.61 mg/dL Normal 0.58-0.96 [facility] Comment on above: Order Comment: Speci men Type: BLOOD SPECIMENOrdering Facility: [facility] Address: [address] [place] [address] Performed By: #### 2 4321-2 ####[facility] LABORATORYCLIA [id number] [address] Creatinine and Glomerular filtration rate.predicted panel (S/P/Bld) 121 mL/min/1.73m??? Normal >=60 [facility] Comment on above: Order Comment: Lyssai elida Type: BLOOD SPECIMENOrdering Facility: [facility] Address: [address] [place] [address] Result Comment: Jessica mated Glomerular Filtration Rate [...] actual GFR. Performed By: #### 2 4321-2 ####[facility] LABORATORYCLIA [id number] [address] [place] Glucose [Mass/Vol] 115 mg/dL High 74-99 [facility] Comment on above: Order Comment: Geraldo marrero Type: BLOOD SPECIMENOrdering Facility: [facility] Address: [address] [place] [address] Result Comment: The [place] [employer] (ADA) provides guidance for cutoff [...] Standards of Medical Care in Diabetes 2016, [place] [employer]. Diabetes Care. 2016.39(Suppl 1). Performed By: #### 2 4321-2 ####[facility] LABORATORYCLIA [id number] [place] [address] [place] Potassium [Moles/Vol] 4.2 mmol/L Normal 3.7-5.1 [facility] Comment on above: Order Comment: Geraldo marrero Type: BLOOD SPECIMENOrdering Facility: [facility] Address: [address] [place] [address] Performed By: #### 2 4321-2 ####[facility] LABORATORYCLIA [id number] [place] [address] [place] Sodium [Moles/Vol] 137 mmol/L Normal 136-144 [facility] Comment on above: Order Comment: Geraldo marrero Type: BLOOD SPECIMENOrdering Facility: [facility] Address: [address] [place] [address] Performed By: #### 2 4321-2 ####[facility] LABORATORYCLIA [id number] [place] [address] [place] Urea nitrogen [Mass/Vol] 6 mg/dL Low 7-21 [facility] Comment on above: Order Comment: Lyssai elida Type: BLOOD SPECIMENOrdering Facility: [facility] Address: [address] [place] [address] Performed By: #### 2 4321-2 ####[facility] LABORATORYCLIA [id number] [place] [address] [place] CASE MGT INIT ASSESon 2022 CASE MGT INIT ASSES Normal [facility] CBC panel Auto (Bld)on 11-18 Erythrocyte distribution width (RBC) [Ratio] 13.0 % Normal 11.5-15.0 [facility] Comment on above: Order Comment: Speci men Type: BLOOD SPECIMENOrdering Facility: [facility] Address: [address] [place] [address] Performed By: #### 5 8410-2 ####[facility] LABORATORYCLIA [id number] [address] [place] Hematocrit (Bld) [Volume fraction] 35.7 % Low 36.0-46.0 [facility] Comment on above: Order Comment: Speci men Type: BLOOD SPECIMENOrdering Facility: [facility] Address: [address] [place] [address] Performed By: #### 5 8410-2 ####[facility] LABORATORYCLIA [id number] [address] OF [facility] Hemoglobin (Bld) [Mass/Vol] 12.3 g/dL Normal 11.5-15.5 [facility] Comment on above: Order Comment: Speci men Type: BLOOD SPECIMENOrdering Facility: [facility] Address: [address] [place] [address] Performed By: #### 5 8410-2 ####[facility] LABORATORYCLIA [id number] [address] [place] MCH (RBC) [Entitic mass] 31.1 pg Normal 26.0-34.0 [facility] Comment on above: Order Comment: Speci men Type: BLOOD SPECIMENOrdering Facility: [facility] Address: [address] [place] [address] Performed By: #### 5 8410-2 ####[facility] LABORATORYCLIA [id number] [address] [place] MCHC (RBC) [Mass/Vol] 34.5 g/dL Normal 30.5-36.0 [facility] Comment on above: Order Comment: Speci men Type: BLOOD SPECIMENOrdering Facility: [facility] Address: [address] [place] [address] Performed By: #### 5 8410-2 ####[facility] LABORATORYCLIA [id number] [place] [address] [place] [facility] MCV (RBC) [Entitic vol] 90.2 fL Normal 80.0-100.0 [facility] Comment on above: Order Comment: Speci men Type: BLOOD SPECIMENOrdering Facility: [facility] Address: [address] [place] [address] Performed By: #### 5 8410-2 ####[facility] LABORATORYCLIA [id number] [address] [place] Nucleated RBC (Bld) [#/Vol] 10*3/uL Normal <0.01 [facility] Comment on above: Order Comment: Speci men Type: BLOOD SPECIMENOrdering Facility: [facility] Address: [address] [place] [address] Performed By: #### 5 8410-2 ####[facility] LABORATORYCLIA [id number] [address] Platelet mean volume (Bld) [Entitic vol] 11.2 fL Normal 9.0-12.7 [facility] Comment on above: Order Comment: Speci men Type: BLOOD SPECIMENOrdering Facility: [facility] Address: [address] [place] [address] Performed By: #### 5 8410-2 ####[facility] LABORATORYCLIA [id number] [place] [address] [place] Platelets (Bld) [#/Vol] 214 10*3/uL Normal 150-400 [facility] Comment on above: Order Comment: Speci men Type: BLOOD SPECIMENOrdering Facility: [facility] Address: [address] [place] [address] Performed By: #### 5 8410-2 ####[facility] LABORATORYCLIA [id number] [place] [address] [place] RBC (Bld) [#/Vol] 3.96 10*6/uL Normal 3.90-5.20 [facility] Comment on above: Order Comment: Speci men Type: BLOOD SPECIMENOrdering Facility: [facility] Address: [address] [place] [address] Performed By: #### 5 8410-2 ####[facility] LABORATORYCLIA [id number] [place] [address] [place] WBC (Bld) [#/Vol] 3.48 10*3/uL Low 3.70-11.00 [facility] Comment on above: Order Comment: Speci men Type: BLOOD SPECIMENOrdering Facility: [facility] Address: [address] [place] [address] Performed By: #### 5 8410-2 ####[facility] LABORATORYCLIA [id number] [address] OF [facility] NURSING PROGon 11-18-2022 NURSING PROG Normal [facility] Urinalysis complete panel (U )on 11-18-2022 Bacteria LM.HPF (Urine sed) [#/Area] Rare Abnormal None Seen [facility] Comment on above: Order Comment: Speci men Type: URINE SPECIMENOrdering Facility: [facility] Address: [address] [place] [address] Performed By: #### 2 4356-8 ####T[facility] LABORATORYCLIA [id number] [address] [place] Bilirubin Ql (U) Negative Normal Negative [facility] Comment on above: Order Comment: Speci men Type: URINE SPECIMENOrdering Facility: [facility] Address: [address] [place] [address] Performed By: #### 2 4356-8 ####T[facility] LABORATORYCLIA [id number] [place] [address] [place] Clarity (Unsp spec) Clear Normal Clear [facility] Comment on above: Order Comment: Speci men Type: URINE SPECIMENOrdering Facility: [facility] Address: [address] [place] [address] Performed By: #### 2 4356-8 ####T[facility] LABORATORYCLIA [id number] [address] [place] Color (U) Colorless Normal Yellow [facility] Comment on above: Order Comment: Speci men Type: URINE SPECIMENOrdering Facility: [facility] Address: [address] [place] [address] Performed By: #### 2 4356-8 ####[facility] LABORATORYCLIA [id number] [address] [place] Epithelial cells LM.HPF (Urine sed) [#/Area] Few Normal [facility] Comment on above: Order Comment: Speci men Type: URINE SPECIMENOrdering Facility: [facility] Address: [address] [place] [address] Performed By: #### 2 6-8 ####[facility] LABORATORYCLIA [id number] [address] [place] Glucose Test strip (U) [Mass/Vol] Negative Normal Trace, Negative [facility] Comment on above: Order Comment: Speci men Type: URINE SPECIMENOrdering Facility: [facility] Address: [address] [place] [address] Performed By: #### 2 4356-8 ####T[facility] LABORATORYCLIA [id number] [place] [address] [place] Hemoglobin Ql (U) Negative Normal Negative, Trace [facility] Comment on above: Order Comment: Speci men Type: URINE SPECIMENOrdering Facility: [facility] Address: [address] [place] [address] Performed By: #### 2 4356-8 ####T[facility] LABORATORYCLIA [id number] [place] [address] [place] Ketones Ql (U) Negative Normal Negative, Trace [facility] Comment on above: Order Comment: Speci men Type: URINE SPECIMENOrdering Facility: [facility] Address: [address] [place] [address] Performed By: #### 2 4356-8 ####T[facility] LABORATORYCLIA [id number] [place] [address] [place] Leukocyte esterase Test strip Ql (U) Negative Normal Negative, 25 Patito/uL [facility] Comment on above: Order Comment: Speci men Type: URINE SPECIMENOrdering Facility: [facility] Address: [address] [place] [address] Performed By: #### 2 4356-8 ####[facility] LABORATORYCLIA [id number] [place] [address] [place] Nitrite Ql (U) Negative Normal Negative [facility] Comment on above: Order Comment: Speci men Type: URINE SPECIMENOrdering Facility: [facility] Address: [address] [place] [address] Performed By: #### 2 4356-8 ####[facility] LABORATORYCLIA [id number] [address] STATES [facility] pH (U) 7.5 [pH] Normal 5.0-8.0 [facility] Comment on above: Order Comment: Speci men Type: URINE SPECIMENOrdering Facility: [facility] Address: [address] [place] [address] Performed By: #### 2 4356-8 ####T[facility] LABORATORYCLIA [id number] [place] [address] [place] Protein (U) [Mass/Vol] Negative Normal Trace, Negative [facility] Comment on above: Order Comment: Speci men Type: URINE SPECIMENOrdering Facility: [facility] Address: [address] [place] [address] Performed By: #### 2 4356-8 ####[facility] LABORATORYCLIA [id number] [address] [place] RBC LM.HPF (Urine sed) [#/Area] 0-3 /HPF Normal 0-3 /HPF [facility] Comment on above: Order Comment: Speci men Type: URINE SPECIMENOrdering Facility: [facility] Address: [address] [place] [address] Performed By: #### 2 4356-8 ####[facility] LABORATORYCLIA [id number] [address] [place] Specific gravity (U) [Rel density] 1.007 Normal 1.005-1.030 [facility] Comment on above: Order Comment: Speci men Type: URINE SPECIMENOrdering Facility: [facility] Address: [address] [place] [address] Performed By: #### 2 4356-8 ####[facility] LABORATORYCLIA [id number] [address] [place] Urobilinogen Ql (U) Negative Normal Negative [facility] Comment on above: Order Comment: Speci men Type: URINE SPECIMENOrdering Facility: [facility] Address: [address] [place] [address] Performed By: #### 2 4356-8 ####[facility] LABORATORYCLIA [id number] [address] STATES [facility] WBC LM.HPF (Urine sed) [#/Area] 0-5 /HPF Normal 0-5 /HPF [facility] Comment on above: Order Comment: Speci men Type: URINE SPECIMENOrdering Facility: [facility] Address: [address] [place] [address] Performed By: #### 2 4356-8 ####[facility] LABORATORYCLIA [id number] [address] [place] Bilirubin Ql (U) Negative Normal Negative [facility] Comment on above: Order Comment: Speci men Type: URINE SPECIMENOrdering Facility: [facility] Address: [address] [place] [address] Performed By: #### 2 4356-8 ####[facility] LABORATORYCLIA [id number] [address] [place] Clarity (Unsp spec) Clear Normal Clear [facility] Comment on above: Order Comment: Speci men Type: URINE SPECIMENOrdering Facility: [facility] Address: [address] [place] [address] Performed By: #### 2 4356-8 ####[facility] LABORATORYCLIA [id number] [address] [place] Color (U) Colorless Normal Yellow [facility] Comment on above: Order Comment: Speci men Type: URINE SPECIMENOrdering Facility: [facility] Address: [address] [place] [address] Performed By: #### 2 4356-8 ####[facility] LABORATORYCLIA [id number] [place] [address] [place] Epithelial cells LM.HPF (Urine sed) [#/Area] Few Normal [facility] Comment on above: Order Comment: Speci men Type: URINE SPECIMENOrdering Facility: [facility] Address: [address] [place] [address] Performed By: #### 2 4356-8 ####[facility] LABORATORYCLIA [id number] [place] [address] [place] Glucose Test strip (U) [Mass/Vol] Negative Normal Trace, Negative [facility] Comment on above: Order Comment: Speci men Type: URINE SPECIMENOrdering Facility: [facility] Address: [address] [place] [address] Performed By: #### 2 4356-8 ####[facility] LABORATORYCLIA [id number] [place] [address] [place] Hemoglobin Ql (U) Negative Normal Negative, Trace [facility] Comment on above: Order Comment: Speci men Type: URINE SPECIMENOrdering Facility: [facility] Address: [address] [place] [address] Performed By: #### 2 4356-8 ####OS[facility] LABORATORYCLIA [id number] [place] [address] [place] Ketones Ql (U) Negative Normal Negative, Trace [facility] Comment on above: Order Comment: Speci men Type: URINE SPECIMENOrdering Facility: [facility] Address: [address] [place] [address] Performed By: #### 2 4356-8 ####[facility] LABORATORYCLIA [id number] [place] [address] [place] Leukocyte esterase Test strip Ql (U) Negative Normal Negative, 25 Patito/uL [facility] Comment on above: Order Comment: Speci men Type: URINE SPECIMENOrdering Facility: [facility] Address: [address] [place] [address] Performed By: #### 2 4356-8 ####[facility] LABORATORYCLIA [id number] [place] [address] [place] Nitrite Ql (U) Negative Normal Negative [facility] Comment on above: Order Comment: Speci men Type: URINE SPECIMENOrdering Facility: [facility] Address: [address] [place] [address] Performed By: #### 2 4356-8 ####[facility] LABORATORYCLIA [id number] [place] [address] [place] pH (U) 7.5 [pH] Normal 5.0-8.0 [facility] Comment on above: Order Comment: Speci men Type: URINE SPECIMENOrdering Facility: [facility] Address: [address] [place] [address] Performed By: #### 2 4356-8 ####[facility] LABORATORYCLIA [id number] [place] [address] [place] Protein (U) [Mass/Vol] Negative Normal Trace, Negative [facility] Comment on above: Order Comment: Speci men Type: URINE SPECIMENOrdering Facility: [facility] Address: [address] [place] [address] Performed By: #### 2 4356-8 ####[facility] LABORATORYCLIA [id number] [place] [address] [place] RBC LM.HPF (Urine sed) [#/Area] 0-3 /HPF Normal 0-3 /HPF [facility] Comment on above: Order Comment: Speci men Type: URINE SPECIMENOrdering Facility: [facility] Address: [address] [place] [address] Performed By: #### 2 4356-8 ####[facility] LABORATORYCLIA [id number] [address] [place] Specific gravity (U) [Rel density] 1.006 Normal 1.005-1.030 [facility] Comment on above: Order Comment: Speci men Type: URINE SPECIMENOrdering Facility: [facility] Address: [address] [address] Performed By: #### 2 4356-8 ####[facility] LABORATORYCLIA [id number] [address] [place] Urobilinogen Ql (U) Negative Normal Negative [facility] Comment on above: Order Comment: Speci men Type: URINE SPECIMENOrdering Facility: [facility] Address: [address] [address] Performed By: #### 2 4356-8 ####[facility] LABORATORYCLIA [id number] [place] [address] [place] WBC LM.HPF (Urine sed) [#/Area] 0-5 /HPF Normal 0-5 /HPF [facility] Comment on above: Order Comment: Speci men Type: URINE SPECIMENOrdering Facility: [facility] Address: [address] [address] Performed By: #### 2 4356-8 ####[facility] LABORATORYCLIA [id number] [place] [address] [place] ALLIED HEALTHon 11-17-2022 ALLIED HEALTH Normal [facility] CBC W Auto Differential pane l (Bld)on 11-17-2022 Basophils (Bld) [#/Vol] 0.03 10*3/uL Normal <0.11 [facility] Comment on above: Order Comment: Speci men Type: BLOOD SPECIMENOrdering Facility: [facility] Address: [address] [address] Performed By: #### 5 7021-8 ####[facility] LABORATORYCLIA [id number] [address] [place] Basophils/100 WBC (Bld) 0.7 % Normal [facility] Comment on above: Order Comment: Speci men Type: BLOOD SPECIMENOrdering Facility: [facility] Address: [address] [address] Performed By: #### 5 7021-8 ####[facility] LABORATORYCLIA [id number] [address] [place] Differential cell count method Nom (Bld) Auto Normal [facility] Comment on above: Order Comment: Speci men Type: BLOOD SPECIMENOrdering Facility: [facility] Address: [address] [address] Performed By: #### 5 7021-8 ####OS[facility] LABORATORYCLIA [id number] [place] [address] [place] Eosinophils (Bld) [#/Vol] 0.07 10*3/uL Normal <0.46 [facility] Comment on above: Order Comment: Speci men Type: BLOOD SPECIMENOrdering Facility: [facility] Address: [address] [place] [address] Performed By: #### 5 7021-8 ####[facility] LABORATORYCLIA [id number] [address] [place] Eosinophils/100 WBC (Bld) 1.7 % Normal [facility] Comment on above: Order Comment: Speci men Type: BLOOD SPECIMENOrdering Facility: [facility] Address: [address] [address] Performed By: #### 5 7021-8 ####[facility] LABORATORYCLIA [id number] [address] [place] Erythrocyte distribution width (RBC) [Ratio] 13.2 % Normal 11.5-15.0 [facility] Comment on above: Order Comment: Speci men Type: BLOOD SPECIMENOrdering Facility: [facility] Address: [address] [address] Performed By: #### 5 7021-8 ####[facility] LABORATORYCLIA [id number] [address] [place] Hematocrit (Bld) [Volume fraction] 37.2 % Normal 36.0-46.0 [facility] Comment on above: Order Comment: Speci men Type: BLOOD SPECIMENOrdering Facility: [facility] Address: [address] [address] Performed By: #### 5 7021-8 ####[facility] LABORATORYCLIA [id number] [place] [address] [place] Hemoglobin (Bld) [Mass/Vol] 12.9 g/dL Normal 11.5-15.5 [facility] Comment on above: Order Comment: Speci men Type: BLOOD SPECIMENOrdering Facility: [facility] Address: [address] [address] Performed By: #### 5 7021-8 ####OS[facility] LABORATORYCLIA [id number] [place] [address] [place] Immature granulocytes (Bld) [#/Vol] 10*3/uL Normal <0.10 [facility] Comment on above: Order Comment: Speci men Type: BLOOD SPECIMENOrdering Facility: [facility] Address: [address] [place] [address] Performed By: #### 5 7021-8 ####[facility] LABORATORYCLIA [id number] [address] [place] Immature granulocytes/100 WBC (Bld) 0.2 % Normal [facility] Comment on above: Order Comment: Speci men Type: BLOOD SPECIMENOrdering Facility: [facility] Address: [address] [place] [address] Performed By: #### 5 7021-8 ####OS[facility] LABORATORYCLIA [id number] [place] [address] [place] Lymphocytes (Bld) [#/Vol] 1.81 10*3/uL Normal 1.00-4.00 [facility] Comment on above: Order Comment: Speci men Type: BLOOD SPECIMENOrdering Facility: [facility] Address: [address] [address] Performed By: #### 5 7021-8 ####[facility] LABORATORYCLIA [id number] [address] [place] Lymphocytes/100 WBC (Bld) 44.6 % Normal [facility] Comment on above: Order Comment: Speci men Type: BLOOD SPECIMENOrdering Facility: [facility] Address: [address] [place] [address] Performed By: #### 5 7021-8 ####[facility] LABORATORYCLIA [id number] [address] STATES [facility] MCH (RBC) [Entitic mass] 31.1 pg Normal 26.0-34.0 [facility] Comment on above: Order Comment: Speci men Type: BLOOD SPECIMENOrdering Facility: [facility] Address: [address] [place] [address] Performed By: #### 5 7021-8 ####[facility] LABORATORYCLIA [id number] [address] [place] MCHC (RBC) [Mass/Vol] 34.7 g/dL Normal 30.5-36.0 [facility] Comment on above: Order Comment: Speci men Type: BLOOD SPECIMENOrdering Facility: [facility] Address: [address] [place] [address] Performed By: #### 5 7021-8 ####[facility] LABORATORYCLIA [id number] [address] MCV (RBC) [Entitic vol] 89.6 fL Normal 80.0-100.0 [facility] Comment on above: Order Comment: Speci men Type: BLOOD SPECIMENOrdering Facility: [facility] Address: [address] [place] [address] Performed By: #### 5 7021-8 ####[facility] LABORATORYCLIA [id number] [address] [place] Monocytes (Bld) [#/Vol] 0.21 10*3/uL Normal <0.87 [facility] Comment on above: Order Comment: Speci men Type: BLOOD SPECIMENOrdering Facility: [facility] Address: [address] [place] [address] Performed By: #### 5 7021-8 ####[facility] LABORATORYCLIA [id number] [address] Monocytes/100 WBC (Bld) 5.2 % Normal [facility] Comment on above: Order Comment: Speci men Type: BLOOD SPECIMENOrdering Facility: [facility] Address: [address] [address] Performed By: #### 5 7021-8 ####[facility] LABORATORYCLIA [id number] [place] [address] [place] Neutrophils (Bld) [#/Vol] 1.93 10*3/uL Normal 1.45-7.50 [facility] Comment on above: Order Comment: Speci men Type: BLOOD SPECIMENOrdering Facility: [facility] Address: [address] [address] Performed By: #### 5 7021-8 ####[facility] LABORATORYCLIA [id number] [place] [address] [place] Neutrophils/100 WBC (Bld) 47.6 % Normal [facility] Comment on above: Order Comment: Speci men Type: BLOOD SPECIMENOrdering Facility: [facility] Address: [address] [address] Performed By: #### 5 7021-8 ####[facility] LABORATORYCLIA [id number] [place] [address] [place] Nucleated RBC (Bld) [#/Vol] 10*3/uL Normal <0.01 [facility] Comment on above: Order Comment: Speci men Type: BLOOD SPECIMENOrdering Facility: [facility] Address: [address] [place] [address] Performed By: #### 5 7021-8 ####[facility] LABORATORYCLIA [id number] [place] [address] [place] Nucleated RBC/100 WBC (Bld) [Ratio] 0.0 /100 WBC Normal [facility] Comment on above: Order Comment: Speci men Type: BLOOD SPECIMENOrdering Facility: [facility] Address: [address] [place] [address] Performed By: #### 5 7021-8 ####[facility] LABORATORYCLIA [id number] [place] [address] [place] Platelet mean volume (Bld) [Entitic vol] 11.9 fL Normal 9.0-12.7 [facility] Comment on above: Order Comment: Speci men Type: BLOOD SPECIMENOrdering Facility: [facility] Address: [address] [place] [address] Performed By: #### 5 7021-8 ####[facility] LABORATORYCLIA [id number] [place] [address] [place] Platelets (Bld) [#/Vol] 85 10*3/uL Low 150-400 [facility] Comment on above: Order Comment: Speci men Type: BLOOD SPECIMENOrdering Facility: [facility] Address: [address] [place] [address] Result Comment: Resu lts may be inaccurate due to the presence of microclots. Performed By: #### 5 7021-8 ####[facility] LABORATORYCLIA [id number] [place] [address] [place] RBC (Bld) [#/Vol] 4.15 10*6/uL Normal 3.90-5.20 [facility] Comment on above: Order Comment: Speci men Type: BLOOD SPECIMENOrdering Facility: [facility] Address: [address] [place] [address] Performed By: #### 5 7021-8 ####[facility] LABORATORYCLIA [id number] [place] [address] [place] WBC (Bld) [#/Vol] 4.06 10*3/uL Normal 3.70-11.00 [facility] Comment on above: Order Comment: Speci men Type: BLOOD SPECIMENOrdering Facility: [facility] Address: [address] [place] [address] Result Comment: Resu lts may be inaccurate due to the presence of microclots. Performed By: #### 5 7021-8 ####T[facility] LABORATORYCLIA [id number] [place] [id number] [place] CONSULTon 11-17-2022 CONSULT Normal [facility] CT ABD/PEL W IVCONon 023 CT ABD/PEL W IVCON Normal [facility] Comprehensive metabolic 2000 panelon 11-17-2022 Albumin [Mass/Vol] 4.2 g/dL Normal 3.9-4.9 [facility] Comment on above: Order Comment: Speci men Type: BLOOD SPECIMENOrdering Facility: [facility] Address: [address] [place] [address] Performed By: #### 3 040-3, ####[facility] LABORATORYCLIA [id number] [place] [id number] [place] ALP [Catalytic activity/Vol] 69 U/L Normal 34-123 [facility] Comment on above: Order Comment: Speci men Type: BLOOD SPECIMENOrdering Facility: [facility] Address: [address] [address] Performed By: #### 3 040-3, ####[facility] LABORATORYCLIA [id number] [address] [place] ALT [Catalytic activity/Vol] 22 U/L Normal 7-38 [facility] Comment on above: Order Comment: Speci men Type: BLOOD SPECIMENOrdering Facility: [facility] Address: [address] [address] Performed By: #### 3 040-3, ####[facility] LABORATORYCLIA [id number] [address] [place] Anion gap [Moles/Vol] 9 mmol/L Normal 9-18 [facility] Comment on above: Order Comment: Speci men Type: BLOOD SPECIMENOrdering Facility: [facility] Address: [address] [address] Performed By: #### 3 040-3, ####[facility] LABORATORYCLIA [id number] [place] [address] [place] AST [Catalytic activity/Vol] 40 U/L High 13-35 [facility] Comment on above: Order Comment: Speci men Type: BLOOD SPECIMENOrdering Facility: [facility] Address: [address] [address] Performed By: #### 3 040-3, 98619-2 ####[facility] LABORATORYCLIA [id number] [place] [address] [place] Bilirubin [Mass/Vol] 0.4 mg/dL Normal 0.2-1.3 [facility] Comment on above: Order Comment: Speci men Type: BLOOD SPECIMENOrdering Facility: [facility] Address: [address] [address] Performed By: #### 3 -3, ####[facility] LABORATORYCLIA [id number] [place] [address] [place] Calcium [Mass/Vol] 8.8 mg/dL Normal 8.5-10.2 [facility] Comment on above: Order Comment: Speci men Type: BLOOD SPECIMENOrdering Facility: [facility] Address: [address] [place] [address] Performed By: #### 3 3, ####[facility] LABORATORYCLIA [id number] [place] [address] [place] Chloride [Moles/Vol] 107 mmol/L High 97-105 [facility] Comment on above: Order Comment: Speci men Type: BLOOD SPECIMENOrdering Facility: [facility] Address: [address] [place] [address] Performed By: #### 3 3, ####[facility] LABORATORYCLIA [id number] [place] [address] [place] CO2 [Moles/Vol] 23 mmol/L Normal 22-30 [facility] Comment on above: Order Comment: Speci men Type: BLOOD SPECIMENOrdering Facility: [facility] Address: [address] [address] Performed By: #### 3 3, 33339-7 ####[facility] LABORATORYCLIA [id number] [place] [address] [place] Creatinine [Mass/Vol] 0.75 mg/dL Normal 0.58-0.96 [facility] Comment on above: Order Comment: Speci men Type: BLOOD SPECIMENOrdering Facility: [facility] Address: [address] [address] Performed By: #### 3 040-3, 25762-4 ####[facility] LABORATORYCLIA [id number] [place] [id number] [place] Creatinine and Glomerular filtration rate.predicted panel (S/P/Bld) 108 mL/min/1.73m??? Normal >=60 [facility] Comment on above: Order Comment: Geraldo marrero Type: BLOOD SPECIMENOrdering Facility: [facility] Address: [address] [place] [address] Result Comment: Jessica mated Glomerular Filtration Rate [...] actual GFR. Performed By: #### 3 040-3, 42042-3 ####[facility] LABORATORYCLIA [id number] [place] [address] [place] Glucose [Mass/Vol] 80 mg/dL Normal 74-99 [facility] Comment on above: Order Comment: Geraldo marrero Type: BLOOD SPECIMENOrdering Facility: [facility] Address: [address] [place] [address] Result Comment: The [place] [employer] (ADA) provides guidance for cutoff [...] Standards of Medical Care in Diabetes 2016, [place] [employer]. Diabetes Care. 2016.39(Suppl 1). Performed By: #### 3 040-3, 43336-3 ####[facility] LABORATORYCLIA [id number] [place] [address] [place] Potassium [Moles/Vol] 4.3 mmol/L Normal 3.7-5.1 [facility] Comment on above: Order Comment: Speci men Type: BLOOD SPECIMENOrdering Facility: [facility] Address: [address] [place] [address] Performed By: #### 3 040-3, 46284-3 ####[facility] LABORATORYCLIA [id number] [place] [address] [place] Protein [Mass/Vol] 6.9 g/dL Normal 6.3-8.0 [facility] Comment on above: Order Comment: Speci men Type: BLOOD SPECIMENOrdering Facility: [facility] Address: [address] [place] [address] Performed By: #### 3 040-3, ####[facility] LABORATORYCLIA [id number] [place] [address] [place] Sodium [Moles/Vol] 139 mmol/L Normal 136-144 [facility] Comment on above: Order Comment: Speci men Type: BLOOD SPECIMENOrdering Facility: [facility] Address: [address] [place] [address] Performed By: #### 3 040-3, 72310-2 ####[facility] LABORATORYCLIA [id number] [place] [address] [place] Urea nitrogen [Mass/Vol] 8 mg/dL Normal 7-21 [facility] Comment on above: Order Comment: Speci men Type: BLOOD SPECIMENOrdering Facility: [facility] Address: [address] [place] [address] Performed By: #### 3 040-3, 08796-6 ####[facility] LABORATORYCLIA [id number] [place] [address] [place] ED NOTEon 11-17-2022 ED NOTE HNO ID: [id number] Author: Jayla Jean RN Service: ? Author Type: Registered Nurse Type: ED Notes Filed: 11/17/2022 2:00 PM Note Text: Pt sts symptoms she feels like she is going to pass out in WR. Vitals rechecked and DS done Normal [facility] ED PROV NOTEon 11-17-2022 ED PROV NOTE Normal [facility] ED PROV NOTE Normal [facility] ED Triage Noteon 11-17-2022 ED Triage Note Normal [facility] Lipase SerPl-cCncon 11-18-19 23 Lipase [Catalytic activity/Vol] 26 U/L Normal 16-61 [facility] Comment on above: Order Comment: Speci men Type: BLOOD SPECIMENOrdering Facility: [facility] Address: [address] [address] Performed By: #### 3 040-3, 79616-4 ####[facility] LABORATORYCLIA [id number] [place] [address] [place] NURSING PROGon 11-17-2022 NURSING PROG Normal [facility] NURSING PROG Normal [facility] Ambulatory Visit Summaryon 1 Ambulatory Visit Summary Normal [facility] Family Medicine Office/Clini c Noteon 11-16-2022 Family Medicine Office/Clinic Note Normal [facility] Comment on above: Result Comment: Elec tronically Signed By: Cristhian REDDING, Jaquan Johnson\.br\Date and Time Signed: 11/16/22 10:42 EDT Basic metabolic 2000 panelon 11-12-2022 Anion gap [Moles/Vol] 12 mmol/L Normal 9-18 [facility] Comment on above: Order Comment: Speci men Type: BLOOD SPECIMENOrdering Facility: [facility] Address: [address] [address] Performed By: #### 2 4321-2 ####[facility] LABORATORYCLIA [id number] [place] [address] [place] Calcium [Mass/Vol] 8.8 mg/dL Normal 8.5-10.2 [facility] Comment on above: Order Comment: Speci men Type: BLOOD SPECIMENOrdering Facility: [facility] Address: [address] [address] Performed By: #### 2 4321-2 ####[facility] LABORATORYCLIA [id number] [address] Chloride [Moles/Vol] 104 mmol/L Normal 97-105 [facility] Comment on above: Order Comment: Speci men Type: BLOOD SPECIMENOrdering Facility: [facility] Address: [address] [address] Performed By: #### 2 4321-2 ####T[facility] LABORATORYCLIA [id number] [place] [address] [facility] [place] CO2 [Moles/Vol] 20 mmol/L Low 22-30 [facility] Comment on above: Order Comment: Speci men Type: BLOOD SPECIMENOrdering Facility: [facility] Address: [address] [place] [address] Performed By: #### 2 4321-2 ####[facility] LABORATORYCLIA [id number] [address] Creatinine [Mass/Vol] 0.62 mg/dL Normal 0.58-0.96 [facility] Comment on above: Order Comment: Speci men Type: BLOOD SPECIMENOrdering Facility: [facility] Address: [address] [place] [address] Performed By: #### 2 4321-2 ####[facility] LABORATORYCLIA [id number] [address] Creatinine and Glomerular filtration rate.predicted panel (S/P/Bld) 121 mL/min/1.73m??? Normal >=60 [facility] Comment on above: Order Comment: Speci men Type: BLOOD SPECIMENOrdering Facility: [facility] Address: [address] [place] [address] Result Comment: Jessica mated Glomerular Filtration Rate [...] Performed By: #### 2 4321-2 ####[facility] LABORATORYCLIA [id number] [place] [address] [place] Glucose [Mass/Vol] 102 mg/dL High 74-99 [facility] Comment on above: Order Comment: Speci men Type: BLOOD SPECIMENOrdering Facility: [facility] Address: [address] [place] [address] Result Comment: The [place] [employer] (ADA) provides guidance for cutoff [...] Standards of Medical Care in Diabetes 2016, [place] [employer]. Diabetes Care. 2016.39(Suppl 1). Performed By: #### 2 4321-2 ####[facility] LABORATORYCLIA [id number] [place] [address] [place] Potassium [Moles/Vol] 4.2 mmol/L Normal 3.7-5.1 [facility] Comment on above: Order Comment: Lyssai men Type: BLOOD SPECIMENOrdering Facility: [facility] Address: [address] [place] [address] Performed By: #### 2 4321-2 ####[facility] LABORATORYCLIA [id number] [place] [address] [place] Sodium [Moles/Vol] 136 mmol/L Normal 136-144 [facility] Comment on above: Order Comment: Speci men Type: BLOOD SPECIMENOrdering Facility: [facility] Address: [address] [place] [address] Performed By: #### 2 4321-2 ####[facility] LABORATORYCLIA [id number] [place] [address] [place] Urea nitrogen [Mass/Vol] 8 mg/dL Normal 7-21 [facility] Comment on above: Order Comment: Speci men Type: BLOOD SPECIMENOrdering Facility: [facility] Address: [address] [address] Performed By: #### 2 4321-2 ####[facility] LABORATORYCLIA [id number] [place] [address] [place] CBC W Auto Differential pane l (Bld)on 11-12-2022 Basophils (Bld) [#/Vol] 10*3/uL Normal <0.11 [facility] Comment on above: Order Comment: Speci men Type: BLOOD SPECIMENOrdering Facility: [facility] Address: [address] [place] [address] Performed By: #### 5 7021-8 ####[facility] LABORATORYCLIA [id number] [address] [place] Basophils/100 WBC (Bld) 0.2 % Normal [facility] Comment on above: Order Comment: Speci men Type: BLOOD SPECIMENOrdering Facility: [facility] Address: [address] [place] [address] Performed By: #### 5 7021-8 ####[facility] LABORATORYCLIA [id number] [address] [place] Differential cell count method Nom (Bld) Auto Normal [facility] Comment on above: Order Comment: Speci men Type: BLOOD SPECIMENOrdering Facility: [facility] Address: [address] [place] [address] Performed By: #### 5 7021-8 ####[facility] LABORATORYCLIA [id number] [place] [address] [place] Eosinophils (Bld) [#/Vol] 10*3/uL Normal <0.46 [facility] Comment on above: Order Comment: Speci men Type: BLOOD SPECIMENOrdering Facility: [facility] Address: [address] [place] [place] [address] Performed By: #### 5 7021-8 ####[facility] LABORATORYCLIA [id number] [address] [place] Eosinophils/100 WBC (Bld) 0.0 % Normal [facility] Comment on above: Order Comment: Speci men Type: BLOOD SPECIMENOrdering Facility: [facility] Address: [address] [place] [address] Performed By: #### 5 7021-8 ####[facility] LABORATORYCLIA [id number] [address] [place] Erythrocyte distribution width (RBC) [Ratio] 12.6 % Normal 11.5-15.0 [facility] Comment on above: Order Comment: Speci men Type: BLOOD SPECIMENOrdering Facility: [facility] Address: [address] [place] [place] [address] Performed By: #### 5 7021-8 ####[facility] LABORATORYCLIA [id number] [address] [place] Hematocrit (Bld) [Volume fraction] 36.9 % Normal 36.0-46.0 [facility] Comment on above: Order Comment: Speci men Type: BLOOD SPECIMENOrdering Facility: [facility] Address: [address] [place] [address] Performed By: #### 5 7021-8 ####[facility] LABORATORYCLIA [id number] [place] [address] [place] Hemoglobin (Bld) [Mass/Vol] 12.8 g/dL Normal 11.5-15.5 [facility] Comment on above: Order Comment: Speci men Type: BLOOD SPECIMENOrdering Facility: [facility] Address: [address] [place] [address] Performed By: #### 5 7021-8 ####[facility] LABORATORYCLIA [id number] [place] [address] [place] Immature granulocytes (Bld) [#/Vol] 0.08 10*3/uL Normal <0.10 [facility] Comment on above: Order Comment: Speci men Type: BLOOD SPECIMENOrdering Facility: [facility] Address: [address] [place] [address] Performed By: #### 5 7021-8 ####OSVAL[facility] LABORATORYCLIA [id number] [place] [address] [place] Immature granulocytes/100 WBC (Bld) 0.8 % Normal [facility] Comment on above: Order Comment: Speci men Type: BLOOD SPECIMENOrdering Facility: [facility] Address: [address] [place] [place] [address] Performed By: #### 5 7021-8 ####[facility] LABORATORYCLIA [id number] [place] [address] [place] Lymphocytes (Bld) [#/Vol] 1.23 10*3/uL Normal 1.00-4.00 [facility] Comment on above: Order Comment: Speci men Type: BLOOD SPECIMENOrdering Facility: [facility] Address: [address] [place] [address] Performed By: #### 5 7021-8 ####[facility] LABORATORYCLIA [id number] [address] [place] Lymphocytes/100 WBC (Bld) 12.8 % Normal [facility] Comment on above: Order Comment: Speci men Type: BLOOD SPECIMENOrdering Facility: [facility] Address: [address] [place] [address] Performed By: #### 5 7021-8 ####[facility] LABORATORYCLIA [id number] [place] [address] [place] MCH (RBC) [Entitic mass] 30.4 pg Normal 26.0-34.0 [facility] Comment on above: Order Comment: Speci men Type: BLOOD SPECIMENOrdering Facility: [facility] Address: [address] [place] [address] Performed By: #### 5 7021-8 ####[facility] LABORATORYCLIA [id number] [address] [place] MCHC (RBC) [Mass/Vol] 34.7 g/dL Normal 30.5-36.0 [facility] Comment on above: Order Comment: Speci men Type: BLOOD SPECIMENOrdering Facility: [facility] Address: [address] [place] [address] Performed By: #### 5 7021-8 ####[facility] LABORATORYCLIA [id number] [place] [address] [place] MCV (RBC) [Entitic vol] 87.6 fL Normal 80.0-100.0 [facility] Comment on above: Order Comment: Speci men Type: BLOOD SPECIMENOrdering Facility: [facility] Address: [address] [place] [address] Performed By: #### 5 7021-8 ####[facility] LABORATORYCLIA [id number] [place] [address] [place] Monocytes (Bld) [#/Vol] 0.42 10*3/uL Normal <0.87 [facility] Comment on above: Order Comment: Speci men Type: BLOOD SPECIMENOrdering Facility: [facility] Address: [address] [place] [address] Performed By: #### 5 7021-8 ####[facility] LABORATORYCLIA [id number] [address] [place] Monocytes/100 WBC (Bld) 4.4 % Normal [facility] Comment on above: Order Comment: Speci men Type: BLOOD SPECIMENOrdering Facility: [facility] Address: [address] [place] [address] Performed By: #### 5 7021-8 ####[facility] LABORATORYCLIA [id number] [place] [address] [place] Neutrophils (Bld) [#/Vol] 7.84 10*3/uL High 1.45-7.50 [facility] Comment on above: Order Comment: Speci men Type: BLOOD SPECIMENOrdering Facility: [facility] Address: [address] [place] [address] Performed By: #### 5 7021-8 ####[facility] LABORATORYCLIA [id number] [address] [place] Neutrophils/100 WBC (Bld) 81.8 % Normal [facility] Comment on above: Order Comment: Speci men Type: BLOOD SPECIMENOrdering Facility: [facility] Address: [address] [place] [address] Performed By: #### 5 7021-8 ####[facility] LABORATORYCLIA [id number] [place] [address] [place] Nucleated RBC (Bld) [#/Vol] 10*3/uL Normal <0.01 [facility] Comment on above: Order Comment: Speci men Type: BLOOD SPECIMENOrdering Facility: [facility] Address: [address] [place] [address] Performed By: #### 5 7021-8 ####[facility] LABORATORYCLIA [id number] [place] [address] [place] Nucleated RBC/100 WBC (Bld) [Ratio] 0.0 /100 WBC Normal [facility] Comment on above: Order Comment: Speci men Type: BLOOD SPECIMENOrdering Facility: [facility] Address: [address] [place] [address] Performed By: #### 5 7021-8 ####[facility] LABORATORYCLIA [id number] [place] [address] [place] Platelet mean volume (Bld) [Entitic vol] 11.3 fL Normal 9.0-12.7 [facility] Comment on above: Order Comment: Speci men Type: BLOOD SPECIMENOrdering Facility: [facility] Address: [address] [place] [address] Performed By: #### 5 7021-8 ####[facility] LABORATORYCLIA [id number] [place] [address] [place] Platelets (Bld) [#/Vol] 253 10*3/uL Normal 150-400 [facility] Comment on above: Order Comment: Speci men Type: BLOOD SPECIMENOrdering Facility: [facility] Address: [address] [place] [address] Performed By: #### 5 7021-8 ####[facility] LABORATORYCLIA [id number] [place] [address] [place] RBC (Bld) [#/Vol] 4.21 10*6/uL Normal 3.90-5.20 [facility] Comment on above: Order Comment: Speci men Type: BLOOD SPECIMENOrdering Facility: [facility] Address: [address] [place] [address] Performed By: #### 5 7021-8 ####[facility] LABORATORYCLIA [id number] [place] [address] [place] WBC (Bld) [#/Vol] 9.59 10*3/uL Normal 3.70-11.00 [facility] Comment on above: Order Comment: Speci men Type: BLOOD SPECIMENOrdering Facility: [facility] Address: [address] [place], [place] [address] Performed By: #### 5 7021-8 ####[facility] LABORATORYCLIA [id number] [address] [place] CNDSon 11-12-2022 CNDS [facility] CNPNon 11-12-2022 CNPN Normal [facility] NURSING PROGon 11-12-2022 NURSING PROG [facility] NUTRITIONon 11-12-2022 NUTRITION Normal [facility] ANES POSTPROC EVALon 023 ANES POSTPROC EVAL Normal [facility] ANES PRE-OPon 11-11-2022 ANES PRE-OP [facility] BRIEF OP NOTon 11-11-2022 BRIEF OP NOT [facility] ERCPon 11-11-2022 ERCP Normal [facility] NURSING PROGon 11-11-2022 NURSING PROG [facility] OPERATIVE NOon 11-11-2022 OPERATIVE NO [facility] PT EDon 11-11-2022 PT ED [facility] TYPE + SCREENon 11-11-2022 ABO O [facility] Comment on above: Order Comment: Speci men Type: BLOOD SPECIMENOrdering Facility: [facility] Address: [address] [place] [address] Performed By: #### T SCR ####[facility] BLOOD BANKCLIA [id number] [address] [place] HISTORICAL AB SCR STATUS Negative [facility] Comment on above: Order Comment: Speci men Type: BLOOD SPECIMENOrdering Facility: [facility] Address: [address] [place] [address] Performed By: #### T SCR ####[facility] BLOOD BANKCLIA [id number] [place] [address] [place] Rh Nom (Bld) Positive Normal [facility] Comment on above: Order Comment: Speci men Type: BLOOD SPECIMENOrdering Facility: [facility] Address: [address] [place] [address] Performed By: #### T SCR ####[facility] BLOOD BANKCLIA [id number] [place] [address] [facility] TYPE AND SCREEN EXPIRATION 11/14/2022 23:59 Normal [facility] Comment on above: Order Comment: Speci men Type: BLOOD SPECIMENOrdering Facility: [facility] Address: [address] [place] [address] Performed By: #### T SCR ####[facility] BLOOD BANKCLIA [id number] [place] [address] [place] XR ERCP READ ONLYon 11-12-19 XR ERCP READ ONLY Normal [facility] CNCOon 11-10-2022 CNCO Letter Text Normal [facility] CNPNon 11-10-2022 CNPN Normal [facility] CNPNon 11-09-2022 CNPN Normal [facility] Population Healthon 11-10-19 23 Population Health Normal [facility] CNDSon 11-08-2022 CNDS Normal [facility] Basic metabolic 2000 panelon 11-06-2022 Anion gap [Moles/Vol] 8 mmol/L Low -18 [facility] Comment on above: Order Comment: Speci men Type: BLOOD SPECIMENOrdering Facility: [facility] Address: [address] Performed By: #### 2 4321-2 ####[facility] LABORATORYCLIA [id number] [address] [address] [place] Calcium [Mass/Vol] 8.6 mg/dL Normal 8.5-10.2 [facility] Comment on above: Order Comment: Speci men Type: BLOOD SPECIMENOrdering Facility: [facility] Address: [address] [place] [address] Performed By: #### 2 4321-2 ####[facility] LABORATORYCLIA [id number] [place] [address] [place] Chloride [Moles/Vol] 108 mmol/L High 97-105 [facility] Comment on above: Order Comment: Speci men Type: BLOOD SPECIMENOrdering Facility: [facility] Address: [address] [place] [address] Performed By: #### 2 4321-2 ####[facility] LABORATORYCLIA [id number] [place] [address] [place] CO2 [Moles/Vol] 24 mmol/L Normal 22-30 [facility] Comment on above: Order Comment: Speci men Type: BLOOD SPECIMENOrdering Facility: [facility] Address: [address] [place] [address] Performed By: #### 2 4321-2 ####[facility] LABORATORYCLIA [id number] [place] [address] [place] Creatinine [Mass/Vol] 0.74 mg/dL Normal 0.58-0.96 [facility] Comment on above: Order Comment: Speci men Type: BLOOD SPECIMENOrdering Facility: [facility] Address: [address] [place] [address] Performed By: #### 2 4321-2 ####[facility] LABORATORYCLIA [id number] [address] [place] Creatinine and Glomerular filtration rate.predicted panel (S/P/Bld) 110 mL/min/1.73m??? Normal >=60 [facility] Comment on above: Order Comment: Speci men Type: BLOOD SPECIMENOrdering Facility: [facility] Address: [address] [place] [address] Result Comment: Jessica mated Glomerular Filtration Rate [...] actual GFR. Performed By: #### 2 4321-2 ####[facility] [id number] [place] [address] [place] Glucose [Mass/Vol] 82 mg/dL Normal 74-99 [facility] Comment on above: Order Comment: Lyssai men Type: BLOOD SPECIMENOrdering Facility: [facility] Address: [address] [place] [phone] Result Comment: The [place] [employer] (ADA) provides guidance for cutoff [...] Standards of Medical Care in Diabetes 2016, [place] [employer]. Diabetes Care. 2016.39(Suppl 1). Performed By: #### 2 4321-2 ####[facility] [id number] [place] [address] [place] Potassium [Moles/Vol] 3.9 mmol/L Normal 3.7-5.1 [facility] Comment on above: Order Comment: Geraldo marrero Type: BLOOD SPECIMENOrdering Facility: [facility] Address: [address] [phone] Performed By: #### 2 4321-2 ####[facility] [id number] [place] [address] [place] Sodium [Moles/Vol] 140 mmol/L Normal 136-144 [facility] Comment on above: Order Comment: Speci men Type: BLOOD SPECIMENOrdering Facility: [facility] Address: [address] [place] [address] Performed By: #### 2 4321-2 ####[facility] LABORATORYCLIA [id number] [place] [id number] [place] Urea nitrogen [Mass/Vol] 8 mg/dL Normal 7-21 [facility] Comment on above: Order Comment: Speci men Type: BLOOD SPECIMENOrdering Facility: [facility] Address: [address] [address] Performed By: #### 2 4321-2 ####[facility] LABORATORYIA [id number] [place] [address] [place] CASE MGT INIT [facility] 2022 CASE MGT INIT [facility] CBC panel Auto (Bld)on 11-06 Erythrocyte distribution width (RBC) [Ratio] 13.3 % Normal 11.5-15.0 [facility] Comment on above: Order Comment: Speci men Type: BLOOD SPECIMENOrdering Facility: [facility] Address: [address] [place] [address] Performed By: #### 5 8410-2 ####[facility] LABORATORYIA [id number] [place] [address] [place] Hematocrit (Bld) [Volume fraction] 34.5 % Low 36.0-46.0 [facility] Comment on above: Order Comment: Speci men Type: BLOOD SPECIMENOrdering Facility: [facility] Address: [address] [place] [address] Performed By: #### 5 8410-2 ####[facility] LABORATORYIA [id number] [place] [address] [place] Hemoglobin (Bld) [Mass/Vol] 11.4 g/dL Low 11.5-15.5 [facility] Comment on above: Order Comment: Speci men Type: BLOOD SPECIMENOrdering Facility: [facility] Address: [address] [place] [address] Performed By: #### 5 8410-2 ####[facility] [id number] [address] [place] MCH (RBC) [Entitic mass] 30.8 pg Normal 26.0-34.0 [facility] Comment on above: Order Comment: Speci men Type: BLOOD SPECIMENOrdering Facility: [facility] Address: [address] [place] [address] Performed By: #### 5 8410-2 ####[facility] [id number] [address] [place] MCHC (RBC) [Mass/Vol] 33.0 g/dL Normal 30.5-36.0 [facility] Comment on above: Order Comment: Speci men Type: BLOOD SPECIMENOrdering Facility: [facility] Address: [address] [place] [address] Performed By: #### 5 8410-2 ####[facility] [id number] [address] [place] MCV (RBC) [Entitic vol] 93.2 fL Normal 80.0-100.0 [facility] Comment on above: Order Comment: Speci men Type: BLOOD SPECIMENOrdering Facility: [facility] Address: [address] [place] [address] Performed By: #### 5 8410-2 ####[facility] [id number] [address] [place] Nucleated RBC (Bld) [#/Vol] 10*3/uL Normal <0.01 [facility] Comment on above: Order Comment: Speci men Type: BLOOD SPECIMENOrdering Facility: [facility] Address: [address] [place] [address] Performed By: #### 5 8410-2 ####[facility] [id number] [address] [place] Platelet mean volume (Bld) [Entitic vol] 11.3 fL Normal 9.0-12.7 [facility] Comment on above: Order Comment: Speci men Type: BLOOD SPECIMENOrdering Facility: [facility] Address: [address] [place] [address] Performed By: #### 5 8410-2 ####[facility] [id number] [place] [id number] [facility] [place] Platelets (Bld) [#/Vol] 225 10*3/uL Normal 150-400 [facility] Comment on above: Order Comment: Speci men Type: BLOOD SPECIMENOrdering Facility: [facility] Address: [address] [address] Performed By: #### 5 8410-2 ####[facility] [id number] [place] [address] [place] RBC (Bld) [#/Vol] 3.70 10*6/uL Low 3.90-5.20 [facility] Comment on above: Order Comment: Speci men Type: BLOOD SPECIMENOrdering Facility: [facility] Address: [address] [address] Performed By: #### 5 8410-2 ####[facility] [id number] [place] [address] [place] WBC (Bld) [#/Vol] 3.98 10*3/uL Normal 3.70-11.00 [facility] Comment on above: Order Comment: Speci men Type: BLOOD SPECIMENOrdering Facility: [facility] Address: [address] [address] Performed By: #### 5 8410-2 ####[facility] [id number] [place] [address] [place] CNPNon 11-06-2022 CNPN Normal [facility] CONSULT PROGon 11-06-2022 CONSULT PROG Normal [facility] CONSULT [facility] Normal [facility] NM HEPATOBILIARY W EF AND/OR RXon 11-06-2022 NM HEPATOBILIARY W EF AND/OR RX Normal [facility] CBC W Auto Differential pane l (Bld)on 09-21-2023 Basophils (Bld) [#/Vol] 0.03 10*3/uL Normal <0.11 [facility] Comment on above: Order Comment: Speci men Type: BLOOD SPECIMENOrdering Facility: [facility] Address: [address] [address] Performed By: #### 5 7021-8 ####[facility] LABORATORYCLIA [id number] [facility] [facility] [id number] [place] Basophils/100 WBC (Bld) 0.6 % Normal [facility] Comment on above: Order Comment: Speci men Type: BLOOD SPECIMENOrdering Facility: [facility] Address: [address] [address] Performed By: #### 5 7021-8 ####[facility] LABORATORYCLIA [id number] [place] [address] [place] Differential cell count method Nom (Bld) Auto Normal [facility] Comment on above: Order Comment: Speci men Type: BLOOD SPECIMENOrdering Facility: [facility] Address: [address] [address] Performed By: #### 5 7021-8 ####[facility] LABORATORYIA [id number] [place] [address] [place] Eosinophils (Bld) [#/Vol] 0.08 10*3/uL Normal <0.46 [facility] Comment on above: Order Comment: Speci men Type: BLOOD SPECIMENOrdering Facility: [facility] Address: [address] [address] Performed By: #### 5 7021-8 ####[facility] LABORATORYCLIA [id number] [facility] [place] [address] [place] Eosinophils/100 WBC (Bld) 1.5 % Normal [facility] Comment on above: Order Comment: Speci men Type: BLOOD SPECIMENOrdering Facility: [facility] Address: [address] [address] Performed By: #### 5 7021-8 ####[facility] LABORATORYCLIA [id number] [place] [address] [place] Erythrocyte distribution width (RBC) [Ratio] 13.3 % Normal 11.5-15.0 [facility] Comment on above: Order Comment: Speci men Type: BLOOD SPECIMENOrdering Facility: [facility] Address: [address] [address] Performed By: #### 5 7021-8 ####[facility] LABORATORYCLIA [id number] [place] [address] [place] Hematocrit (Bld) [Volume fraction] 40.5 % Normal 36.0-46.0 [facility] Comment on above: Order Comment: Speci men Type: BLOOD SPECIMENOrdering Facility: [facility] Address: [address] [address] Performed By: #### 5 7021-8 ####[facility] LABORATORYIA [id number] [place] [address] [place] Hemoglobin (Bld) [Mass/Vol] 13.3 g/dL Normal 11.5-15.5 [facility] Comment on above: Order Comment: Speci men Type: BLOOD SPECIMENOrdering Facility: [facility] Address: [address] [place] [address] Performed By: #### 5 7021-8 ####[facility] LABORATORYIA [id number] [place] [address] [place] Immature granulocytes (Bld) [#/Vol] 10*3/uL Normal <0.10 [facility] Comment on above: Order Comment: Speci men Type: BLOOD SPECIMENOrdering Facility: [facility] Address: [address] [address] Performed By: #### 5 7021-8 ####[facility] LABORATORYIA [id number] [address] [place] Immature granulocytes/100 WBC (Bld) 0.4 % Normal [facility] Comment on above: Order Comment: Speci men Type: BLOOD SPECIMENOrdering Facility: [facility] Address: [address] [place] [address] Performed By: #### 5 7021-8 ####[facility] LABORATORYCLIA [id number] [place] [address] [place] Lymphocytes (Bld) [#/Vol] 2.53 10*3/uL Normal 1.00-4.00 [facility] Comment on above: Order Comment: Speci men Type: BLOOD SPECIMENOrdering Facility: [facility] Address: [address] [address] Performed By: #### 5 7021-8 ####[facility] LABORATORYCLIA [id number] [address] [place] Lymphocytes/100 WBC (Bld) 48.5 % Normal [facility] Comment on above: Order Comment: Speci men Type: BLOOD SPECIMENOrdering Facility: [facility] Address: [address] [place] [address] Performed By: #### 5 7021-8 ####[facility] [id number] [address] [place] MCH (RBC) [Entitic mass] 30.4 pg Normal 26.0-34.0 [facility] Comment on above: Order Comment: Speci men Type: BLOOD SPECIMENOrdering Facility: [facility] Address: [address] [place] [address] Performed By: #### 5 7021-8 ####[facility] LABORATORYIA [id number] [place] [address] [place] MCHC (RBC) [Mass/Vol] 32.8 g/dL Normal 30.5-36.0 [facility] Comment on above: Order Comment: Speci men Type: BLOOD SPECIMENOrdering Facility: [facility] Address: [address] [place], [place] [address] Performed By: #### 5 7021-8 ####[facility] LABORATORYIA [id number] [place] [address] [place] MCV (RBC) [Entitic vol] 92.7 fL Normal 80.0-100.0 [facility] Comment on above: Order Comment: Speci men Type: BLOOD SPECIMENOrdering Facility: [facility] Address: [address] [address] Performed By: #### 5 7021-8 ####[facility] LABORATORYCLIA [id number] [place] [address] [place] Monocytes (Bld) [#/Vol] 0.30 10*3/uL Normal <0.87 [facility] Comment on above: Order Comment: Speci men Type: BLOOD SPECIMENOrdering Facility: [facility] Address: [address] [address] Performed By: #### 5 7021-8 ####[facility] LABORATORYIA [id number] [place] [address] [place] Monocytes/100 WBC (Bld) 5.7 % Normal [facility] Comment on above: Order Comment: Speci men Type: BLOOD SPECIMENOrdering Facility: [facility] Address: [address] [address] Performed By: #### 5 7021-8 ####[facility] [id number] [place] [address] [place] Neutrophils (Bld) [#/Vol] 2.26 10*3/uL Normal 1.45-7.50 [facility] Comment on above: Order Comment: Speci men Type: BLOOD SPECIMENOrdering Facility: [facility] Address: [address] [address] Performed By: #### 5 7021-8 ####[facility] LABORATORYCLIA [id number] [place] [address] [place] Neutrophils/100 WBC (Bld) 43.3 % Normal [facility] Comment on above: Order Comment: Speci men Type: BLOOD SPECIMENOrdering Facility: [facility] Address: [address] [address] Performed By: #### 5 7021-8 ####[facility] LABORATORYCLIA [id number] [place] [address] [place] Nucleated RBC (Bld) [#/Vol] 10*3/uL Normal <0.01 [facility] Comment on above: Order Comment: Speci men Type: BLOOD SPECIMENOrdering Facility: [facility] Address: [address] [address] Performed By: #### 5 7021-8 ####[facility] LABORATORYCLIA [id number] [place] [address] [place] Nucleated RBC/100 WBC (Bld) [Ratio] 0.0 /100 WBC Normal [facility] Comment on above: Order Comment: Speci men Type: BLOOD SPECIMENOrdering Facility: [facility] Address: [address] [place] [address] Performed By: #### 5 7021-8 ####[facility] LABORATORYCLIA [id number] [place] [address] [place] Platelet mean volume (Bld) [Entitic vol] 11.4 fL Normal 9.0-12.7 [facility] Comment on above: Order Comment: Speci men Type: BLOOD SPECIMENOrdering Facility: [facility] Address: [address] [place] [address] Performed By: #### 5 7021-8 ####[facility] LABORATORYIA [id number] [place] [address] [place] Platelets (Bld) [#/Vol] 207 10*3/uL Normal 150-400 [facility] Comment on above: Order Comment: Speci men Type: BLOOD SPECIMENOrdering Facility: [facility] Address: [address] [address] Performed By: #### 5 7021-8 ####[facility] LABORATORYCLIA [id number] [place] [address] [place] RBC (Bld) [#/Vol] 4.37 10*6/uL Normal 3.90-5.20 [facility] Comment on above: Order Comment: Speci men Type: BLOOD SPECIMENOrdering Facility: [facility] Address: [address] [place] [address] Performed By: #### 5 7021-8 ####[facility] LABORATORYCLIA [id number] [place] [address] [place] WBC (Bld) [#/Vol] 5.22 10*3/uL Normal 3.70-11.00 [facility] Comment on above: Order Comment: Speci men Type: BLOOD SPECIMENOrdering Facility: [facility] Address: [address] Performed By: #### 5 7021-8 ####[facility] LABORATORYCLIA [id number] [place] [address] [place] CNPNon 11-05-2022 CNPN Normal [facility] CONSULTon 11-05-2022 CONSULT Normal [facility] CONSULT Normal [facility] Comprehensive metabolic 2000 panelon 11-05-2022 Albumin [Mass/Vol] 4.2 g/dL Normal 3.9-4.9 [facility] Comment on above: Order Comment: Speci men Type: BLOOD SPECIMENOrdering Facility: [facility] Address: [address] Performed By: #### 2 4323-8, 0-3 ####[facility] [id number] [place] [address] [place] ALP [Catalytic activity/Vol] 71 U/L Normal 34-123 [facility] Comment on above: Order Comment: Speci men Type: BLOOD SPECIMENOrdering Facility: [facility] Address: [address] Performed By: #### 2 4323-8, 3040-3 ####[facility] LABORATORYIA [id number] [place] [id number] [place] ALT [Catalytic activity/Vol] 15 U/L Normal 7-38 [facility] Comment on above: Order Comment: Speci men Type: BLOOD SPECIMENOrdering Facility: [facility] Address: [address] Performed By: #### 2 4323-8, 3039-3 ####[facility] LABORATORYCLIA [id number] [facility] [place] [address] [place] Anion gap [Moles/Vol] 12 mmol/L Normal 9-18 [facility] Comment on above: Order Comment: Speci men Type: BLOOD SPECIMENOrdering Facility: [facility] Address: [address] [place] [address] Performed By: #### 2 4323-8, 3039-3 ####[facility]ORATORYCLIA [id number] [place] [address] [place] AST [Catalytic activity/Vol] 26 U/L Normal 13-35 [facility] Comment on above: Order Comment: Speci men Type: BLOOD SPECIMENOrdering Facility: [facility] Address: [address] [place] [address] Performed By: #### 2 4323-8, 3 ####[facility]ORATORYCLIA [id number] [place] [address] [place] Bilirubin [Mass/Vol] 0.4 mg/dL Normal 0.2-1.3 [facility] Comment on above: Order Comment: Speci men Type: BLOOD SPECIMENOrdering Facility: [facility] Address: [address] [place] [address] Performed By: #### 2 4323-8, 3 ####[facility] LABORATORYCLIA [id number] [facility] [place] [address] [place] Calcium [Mass/Vol] 8.6 mg/dL Normal 8.5-10.2 [facility] Comment on above: Order Comment: Speci men Type: BLOOD SPECIMENOrdering Facility: [facility] Address: [address] [place] [address] Performed By: #### 2 4323-8, 3039-3 ####[facility] LABORATORYCLIA [id number] [facility] [place] [address] [place] Chloride [Moles/Vol] 107 mmol/L High 97-105 [facility] Comment on above: Order Comment: Speci men Type: BLOOD SPECIMENOrdering Facility: [facility] Address: [address] Performed By: #### 2 4323-8, 3039-3 ####[facility]ORATORYCLIA [id number] [place] [address] [place] CO2 [Moles/Vol] 22 mmol/L Normal 22-30 [facility] Comment on above: Order Comment: Speci men Type: BLOOD SPECIMENOrdering Facility: [facility] Address: [address] Performed By: #### 2 4323-8, 3 ####[facility] LABORATORYCLIA [id number] [address] [facility] Creatinine [Mass/Vol] 0.87 mg/dL Normal 0.58-0.96 [facility] Comment on above: Order Comment: Speci men Type: BLOOD SPECIMENOrdering Facility: [facility] Address: [address] Performed By: #### 2 4323-8, 3 ####[facility] LABORATORYCLIA [id number] [address] Creatinine and Glomerular filtration rate.predicted panel (S/P/Bld) 90 mL/min/1.73m??? Normal >=60 [facility] Comment on above: Order Comment: Speci men Type: BLOOD SPECIMENOrdering Facility: [facility] Address: [address] Result Comment: Jessica mated Glomerular Filtration [...] GFR. Performed By: #### 2 4323-8, 3039-3 ####[facility] [id number] [place] [address] [place] Glucose [Mass/Vol] 87 mg/dL Normal 74-99 [facility] Comment on above: Order Comment: Speci men Type: BLOOD SPECIMENOrdering Facility: [facility] Address: [address] [place] [address] Result Comment: The [place] [employer] (ADA) provides guidance for cutoff [...] Standards of Medical Care in Diabetes 2016, [place] [employer]. Diabetes Care. 2016.39(Suppl 1). Performed By: #### 2 4323-8, 0-3 ####[facility] [id number] [place] [address] [place] Potassium [Moles/Vol] 3.5 mmol/L Low 3.7-5.1 [facility] Comment on above: Order Comment: Speci men Type: BLOOD SPECIMENOrdering Facility: [facility] Address: [address] [place] [address] Performed By: #### 2 4323-8, 3039-3 ####[facility] [id number] [place] [address] [place] Protein [Mass/Vol] 6.6 g/dL Normal 6.3-8.0 [facility] Comment on above: Order Comment: Speci men Type: BLOOD SPECIMENOrdering Facility: [facility] Address: [address] [place] [address] Performed By: #### 2 4323-8, 0-3 ####[facility] [id number] [place] [address] [place] [facility] Sodium [Moles/Vol] 141 mmol/L Normal 136-144 [facility] Comment on above: Order Comment: Speci men Type: BLOOD SPECIMENOrdering Facility: [facility] Address: [place] [address] Performed By: #### 2 4323-8, 3040-3 ####[facility] LABORATORYCLIA [id number] [place] [address] [place] Urea nitrogen [Mass/Vol] 9 mg/dL Normal 7-21 [facility] Comment on above: Order Comment: Speci men Type: BLOOD SPECIMENOrdering Facility: [facility] Address: [place] [address] Performed By: #### 2 4323-8, 3040-3 ####[facility]ORATORYCLIA [id number] [place] [address] [place] ECG COMPLETEon 11-05-2022 ECG COMPLETE Normal [facility] ED NOTEon 11-05-2022 ED NOTE HNO ID: [id number] Author: Joanne Mario RN Service: ? Author Type: Registered Nurse Type: ED Notes Filed: 11/05/2022 1:56 PM Note Text: Attempt to call report, Nurse taking patient is ROHIT. Will return call when nurse available. Normal [facility] ED NOTE HNO ID: [id number] Author: Joanne Mario RN Service: ? Author Type: Registered Nurse Type: ED Notes Filed: 11/05/2022 1:28 PM Note Text: Patient refused all daily meds but reglan due to nausea. Normal [facility] ED PROV NOTEon 11-05-2022 ED PROV NOTE Normal [facility] HISTORY PHYSICALon HISTORY PHYSICAL Normal [facility] Lipase SerPl-cCncon 11-06-19 23 Lipase [Catalytic activity/Vol] 38 U/L Normal 16-61 [facility] Comment on above: Order Comment: Speci men Type: BLOOD SPECIMENOrdering Facility: [facility] Address: [place] [address] Performed By: #### 2 4323-8, 3040-3 ####[facility] LABORATORYCLIA [id number] [facility] [place] [address] [place] NURSING PROGon 11-05-2022 NURSING PROG Normal [facility] l XR ABD 2V SUPINE W UPR/DECUB /CTLon 11-05-2022 XR ABD 2V SUPINE W UPR/DECUB/CTL Normal [facility] 25(OH)D3 SerPl-ncon 2022 25-hydroxyvitamin D3 [Mass/Vol] 29.0 ng/mL Low 31.0-80.0 [facility] Comment on above: Order Comment: Speci men Type: BLOOD SPECIMENOrdering Facility: [facility] Address: [address] [place] [address] Result Comment: Clas sification of 25 [place] Vitamin D status:Deficiency/Insufficiency: < or = 30 ng/ml.Sufficiency/Optimal Levels: 31-80 ng/mLToxicity: > 100 ng/mL.Test performed by chemiluminescent immunoassay. Performed By: #### 1 989-3 ####[facility] LABCLIA [id number] [place] [address] [place] Amylase SerPl-cCncon 023 Amylase [Catalytic activity/Vol] 40 U/L Normal 30-104 [facility] Comment on above: Order Comment: Speci men Type: BLOOD SPECIMENOrdering Facility: [facility] Address: [address] [place] [address] Performed By: #### 1 798-8, 2731-8, 2284-8, 2132-9 ####[facility] LABIA [id number] [place] [address] [place] CBC panel Auto (Bld)on 11-04 Erythrocyte distribution width (RBC) [Ratio] 13.2 % Normal 11.5-15.0 [facility] Comment on above: Order Comment: Speci men Type: BLOOD SPECIMENOrdering Facility: [facility] Address: [address] [place] [address] Performed By: #### 5 8410-2 ####[facility] LABCLIA [id number] [address] [place] Hematocrit (Bld) [Volume fraction] 40.5 % Normal 36.0-46.0 [facility] Comment on above: Order Comment: Speci men Type: BLOOD SPECIMENOrdering Facility: [facility] Address: [address] Performed By: #### 5 8410-2 ####[facility] LABIA [id number] [place] [address] [place] Hemoglobin (Bld) [Mass/Vol] 13.6 g/dL Normal 11.5-15.5 [facility] Comment on above: Order Comment: Speci men Type: BLOOD SPECIMENOrdering Facility: [facility] Address: [address] Performed By: #### 5 8410-2 ####[facility] LABIA [id number] [place] [address] [place] MCH (RBC) [Entitic mass] 30.7 pg Normal 26.0-34.0 [facility] Comment on above: Order Comment: Speci men Type: BLOOD SPECIMENOrdering Facility: [facility] Address: [address] Performed By: #### 5 8410-2 ####[facility] LABCLIA [id number] [place] [address] [place] MCHC (RBC) [Mass/Vol] 33.6 g/dL Normal 30.5-36.0 [facility] Comment on above: Order Comment: Speci men Type: BLOOD SPECIMENOrdering Facility: [facility] Address: [address] Performed By: #### 5 8410-2 ####[facility] LABCLIA [id number] [place] [address] [place] MCV (RBC) [Entitic vol] 91.4 fL Normal 80.0-100.0 [facility] Comment on above: Order Comment: Speci men Type: BLOOD SPECIMENOrdering Facility: [facility] Address: [address] [place], [place] [address] Performed By: #### 5 8410-2 ####[facility] LABIA [id number] [place] [address] [place] Nucleated RBC (Bld) [#/Vol] 10*3/uL Normal <0.01 [facility] Comment on above: Order Comment: Speci men Type: BLOOD SPECIMENOrdering Facility: [facility] Address: [address] [place] [address] Performed By: #### 5 8410-2 ####[facility] [id number] [place] [address] [place] Platelet mean volume (Bld) [Entitic vol] 12.1 fL Normal 9.0-12.7 [facility] Comment on above: Order Comment: Speci men Type: BLOOD SPECIMENOrdering Facility: [facility] Address: [address] [place], [place] [address] Performed By: #### 5 8410-2 ####[facility] LABUNIV[facility] [id number] [place] [address] [place] Platelets (Bld) [#/Vol] 313 10*3/uL Normal 150-400 [facility] Comment on above: Order Comment: Speci men Type: BLOOD SPECIMENOrdering Facility: [facility] Address: [address] [place], [place] [address] Performed By: #### 5 8410-2 ####[facility] LABIA [id number] [place] [address] [place] RBC (Bld) [#/Vol] 4.43 10*6/uL Normal 3.90-5.20 [facility] Comment on above: Order Comment: Speci men Type: BLOOD SPECIMENOrdering Facility: [facility] Address: [address] [place] [address] Performed By: #### 5 8410-2 ####[facility] LABCLIA [id number] [place] [address] [place] WBC (Bld) [#/Vol] 6.69 10*3/uL Normal 3.70-11.00 [facility] Comment on above: Order Comment: Speci men Type: BLOOD SPECIMENOrdering Facility: [facility] Address: [address] [place] [address] Performed By: #### 5 8410-2 ####[facility] LABCLIA [id number] [place] [address] [place] CNCOon 11-04-2022 CNCO Letter Text Normal [facility] CNOVon 11-04-2022 CNOV Normal [facility] Comprehensive metabolic 2000 panelon 11-04-2022 Albumin [Mass/Vol] 4.3 g/dL Normal 3.9-4.9 [facility] Comment on above: Order Comment: Speci men Type: BLOOD SPECIMENOrdering Facility: [facility] Address: [address] [place] [address] Performed By: #### 5 0190-8, 3040-3, 49998-0, 2276-4 ####[facility] LABCLIA [id number] [place] [id number] [place] ALP [Catalytic activity/Vol] 69 U/L Normal 34-123 [facility] Comment on above: Order Comment: Speci men Type: BLOOD SPECIMENOrdering Facility: [facility] Address: [address] [place] [address] Performed By: #### 5 0190-8, 3040-3, 90677-1, 2276-4 ####[facility] LABCLIA [id number] [place] [address] [place] ALT [Catalytic activity/Vol] 16 U/L Normal 7-38 [facility] Comment on above: Order Comment: Speci men Type: BLOOD SPECIMENOrdering Facility: [facility] Address: [address] [place] [address] Performed By: #### 5 0190-8, 3040-3, 04753-2, 2275-4 ####[facility] LABCLIA [id number] [place] [address] [place] Anion gap [Moles/Vol] 13 mmol/L Normal 9-18 [facility] Comment on above: Order Comment: Speci men Type: BLOOD SPECIMENOrdering Facility: [facility] Address: [address] [place] [address] Performed By: #### 5 0190-8, 3040-3, 79841-4, 2275-4 ####[facility] LABCLIA [id number] [place] [address] [place] AST [Catalytic activity/Vol] 25 U/L Normal 13-35 [facility] Comment on above: Order Comment: Speci men Type: BLOOD SPECIMENOrdering Facility: [facility] Address: [address] [place] [address] Performed By: #### 5 0190-8, 3040-3, 17711-1, 2275-4 ####[facility] LABCLIA [id number] [place] [address] [place] Bilirubin [Mass/Vol] 0.3 mg/dL Normal 0.2-1.3 [facility] Comment on above: Order Comment: Speci men Type: BLOOD SPECIMENOrdering Facility: [facility] Address: [address] [place] [address] Performed By: #### 5 0190-8, 3040-3, 05446-5, 2275-4 ####[facility] LABCLIA [id number] [place] [address] [place] Calcium [Mass/Vol] 9.1 mg/dL Normal 8.5-10.2 [facility] Comment on above: Order Comment: Speci men Type: BLOOD SPECIMENOrdering Facility: [facility] Address: [address] [place] [address] Performed By: #### 5 0190-8, 3040-3, 36323-8, 2275-4 ####[facility] LABCLIA [id number] [place] [address] [place] Chloride [Moles/Vol] 105 mmol/L Normal 97-105 [facility] Comment on above: Order Comment: Speci men Type: BLOOD SPECIMENOrdering Facility: [facility] Address: [address] [place] [address] Performed By: #### 5 0190-8, 3040-3, 89834-9, 2275-4 ####[facility] LABCLIA [id number] [place] [address] [place] CO2 [Moles/Vol] 19 mmol/L Low 22-30 [facility] Comment on above: Order Comment: Speci men Type: BLOOD SPECIMENOrdering Facility: [facility] Address: [address] [place] [address] Performed By: #### 5 0190-8, 3040-3, 72317-1, 2275-4 ####[facility] LABCLIA [id number] [place] [address] [place] Creatinine [Mass/Vol] 0.77 mg/dL Normal 0.58-0.96 [facility] Comment on above: Order Comment: Speci men Type: BLOOD SPECIMENOrdering Facility: [facility] Address: [address] [place] [address] Performed By: #### 5 0190-8, 3040-3, 95924-6, 2275-4 ####[facility] LABCLIA [id number] [address] Creatinine and Glomerular filtration rate.predicted panel (S/P/Bld) 105 mL/min/1.73m??? Normal >=60 [facility] Comment on above: Order Comment: Geraldo marrero Type: BLOOD SPECIMENOrdering Facility: [facility] Address: [address] [place] [address] Result Comment: Jessica mated Glomerular Filtration Rate [...] GFR. Performed By: #### 5 0190-8, 3040-3, 70486-9, 2276-4 ####[facility] LABCLIA [id number] [place] [address] [place] Glucose [Mass/Vol] 224 mg/dL High 74-99 [facility] Comment on above: Order Comment: Geraldo marrero Type: BLOOD SPECIMENOrdering Facility: [facility] Address: [address] [place] [address] Result Comment: The [place] Diabetes [employer] (ADA) provides guidance for cutoff [...] Standards of Medical Care in Diabetes 2016, [place] [employer]. Diabetes Care. 2016.39(Suppl 1). Performed By: #### 5 0190-8, 3040-3, 60009-6, 2276-4 ####[facility] LABCLIA [id number] [place] [address] [place] Potassium [Moles/Vol] 3.7 mmol/L Normal 3.7-5.1 [facility] Comment on above: Order Comment: Speci men Type: BLOOD SPECIMENOrdering Facility: [facility] Address: [address] [place] [address] Performed By: #### 5 0190-8, 3040-3, 18733-8, 6-4 ####[facility] LABCLIA [id number] [place] [address] [place] Protein [Mass/Vol] 6.9 g/dL Normal 6.3-8.0 [facility] Comment on above: Order Comment: Speci men Type: BLOOD SPECIMENOrdering Facility: [facility] Address: [address] [place] [address] Performed By: #### 5 0190-8, 3040-3, 25317-8, 2275-4 ####[facility] LABCLIA [id number] [place] [address] [place] Sodium [Moles/Vol] 137 mmol/L Normal 136-144 [facility] Comment on above: Order Comment: Speci men Type: BLOOD SPECIMENOrdering Facility: [facility] Address: [address] [place] [address] Performed By: #### 5 0190-8, 3040-3, 55864-8, 2275-4 ####[facility] LABCLIA [id number] [place] [address] [place] Urea nitrogen [Mass/Vol] 9 mg/dL Normal 7-21 [facility] Comment on above: Order Comment: Speci men Type: BLOOD SPECIMENOrdering Facility: [facility] Address: [address] [place] [address] Performed By: #### 5 0190-8, 3040-3, 32283-3, 2275-4 ####[facility] LABCLIA [id number] [place] [address] [place] Ferritin SerPl[facility] 2022 Ferritin [Mass/Vol] 13.2 ng/mL Low 14.7-205.1 [facility] Comment on above: Order Comment: Speci men Type: BLOOD SPECIMENOrdering Facility: [facility] Address: [address] [place] [address] Performed By: #### 5 0190-8, 3040-3, 75400-5, 2276-4 ####[facility] LABIA [id number] [place] [address] [place] Folate SerPl-mCncon 11-05-19 Folate [Mass/Vol] 9.3 ng/mL Normal >4.7 [facility] Comment on above: Order Comment: Speci men Type: BLOOD SPECIMENOrdering Facility: [facility] Address: [address] [place] [address] Performed By: #### 1 798-8, 2731-8, 2284-8, 2132-9 ####[facility] [id number] [place] [address] [place] Iron and Iron binding capaci ty panelon 11-04-2022 Iron [Mass/Vol] 52 ug/dL Normal 41-186 [facility] Comment on above: Order Comment: Speci men Type: BLOOD SPECIMENOrdering Facility: [facility] Address: [address] [place] [address] Performed By: #### 5 0190-8, 3040-3, 47793-5, 2276-4 ####[facility] LABIA [id number] [place] [address] [place] Iron binding capacity [Mass/Vol] 348 ug/dL Normal 232-386 [facility] Comment on above: Order Comment: Speci men Type: BLOOD SPECIMENOrdering Facility: [facility] Address: [address] [place] [address] Performed By: #### 5 0190-8, 3040-3, 33926-3, 2276-4 ####[facility] LABCLIA [id number] [place] [address] [place] Iron/TIBC [Molar ratio] 14.9 % Low 15.0-57.0 [facility] Comment on above: Order Comment: Speci men Type: BLOOD SPECIMENOrdering Facility: [facility] Address: [address] [place] [address] Performed By: #### 5 0190-8, 3040-3, 67746-6, 6-4 ####[facility] LABCLIA [id number] [place] [address] [place] Lipase SerPl-cCncon 11-05-19 23 Lipase [Catalytic activity/Vol] 35 U/L Normal 16-61 [facility] Comment on above: Order Comment: Speci men Type: BLOOD SPECIMENOrdering Facility: [facility] Address: [address] [place] [address] Performed By: #### 5 0190-8, 3040-3, 98672-1, 6-4 ####[facility] LABIA [id number] [address] [place] PTH-Intact [facility]-ncon 10-17 Parathyrin.intact [Mass/Vol] 27 pg/mL Normal 15-65 [facility] Comment on above: Order Comment: Speci men Type: BLOOD SPECIMENOrdering Facility: [facility] Address: [address] [place] [address] Performed By: #### 1 798-8, 2731-8, 2284-8, 2132-9 ####[facility] LABCLIA [id number] [place] [address] [place] US ABD RIGHT UPPER QUADRANTo n 11-04-2022 US ABD RIGHT UPPER QUADRANT Normal [facility] VITAMIN B1 (THIAMINE), WHOLE BLOODon 11-04-2022 Thiamine (Bld) [Moles/Vol] 165.0 nmol/L Normal 84.3-213.3 [facility] Comment on above: Order Comment: Geraldo marrero Type: BLOOD SPECIMENOrdering Facility: [facility] Address: [address] [place] [address] Result Comment: This assay measures the concentration of thiamine diphosphate (TDP), the primary active form of vitamin B1. Approximately 90 percent of vitamin B1 present in whole blood is TDP. Thiamine and thiamine monophosphate, which comprise the remaining 10 percent, are not measured.This test was developed and its performance characteristics determined by [facility] [place] ([facility]). It has not been cleared or approved by the FDA. -[facility] is regulated under CLIA as qualified to perform high-complexity testing. This test is used for clinical purposes. It should not be regarded as investigational or for research. Performed By: #### B 1WB ####[facility] LABCLIA [id number] [place] [address] [place] Vit A SerPl-mCncon 3 Retinol [Mass/Vol] 0.44 mg/L Normal 0.30-1.20 [facility] Comment on above: Order Comment: Geraldo marrero Type: BLOOD SPECIMENOrdering Facility: [facility] Address: [address] [place] [address] Result Comment: This test was developed and its performance characteristics determined by [facility] [place] ([facility]). It has not been cleared or approved by the FDA. [facility] is regulated under CLIA as qualified to perform high-complexity testing. This test is used for clinical purposes. It should not be regarded as investigational or for research. Performed By: #### 2 923-1 ####[facility] LABCLIA [id number] [place] [address] [place] Vit B12 SerPl-mCncon 023 Cobalamin (Vitamin B12) [Mass/Vol] 1018 pg/mL Normal 232-1245 [facility] Comment on above: Order Comment: Speci men Type: BLOOD SPECIMENOrdering Facility: [facility] Address: [place] [phone] Performed By: #### 1 798-8, 2731-8, 2284-8, 2132-9 ####[facility] LABCLIA [id number] [address] [place] Zinc SerPl-mCncon 11-04-2022 Zinc [Mass/Vol] 51 ug/dL Low 60-120 [facility] Comment on above: Order Comment: Speci men Type: BLOOD SPECIMENOrdering Facility: [facility] Address: [place] [phone] Result Comment: This test was developed and its performance characteristics determined by [facility] [place] [facility] It has not been cleared or approved by the FDA. [facility] is regulated under CLIA as qualified to perform high-complexity testing. This test is used for clinical purposes. It should not be regarded as investigational or for research. Performed By: #### 5 763-8 ####[facility] LABCLIA [id number] [place] [address] [place] Ambulatory Visit Summaryon 0 11-03-2022 Ambulatory Visit Summary Normal [address] [place] [address]- \.br\ Medications\.br\ What How Much When Why [...] Metabolic syndrome\.br\ PCOS- polycystic ovary syndrome\.br\ \.br\ [facility] Family Medicine Office/Clini c Noteon 11-03-2022 Family Medicine Office/Clinic Note Normal [facility] Comment on above: Result Comment: Elec tronically Signed By: Jaquan Paula\.br\Date and Time Signed: 11/03/22 11:43 EDT Provider Letteron 11-03-2022 Provider Letter Normal [facility] CBCon 11-02-2022 ABSOLUTE BAS 0.0 10*3/uL Normal 0.0-0.2 [facility] Comment on above: Performed By: #### A CBC, LIPA2, CMPF #### Testing performed at [address] [place] [address] ABSOLUTE EOS 0.0 10*3/uL Normal 0.0-0.7 [facility] Comment on above: Performed By: #### A CBC, LIPA2, CMPF #### Testing performed at [address] [address] ABSOLUTE NEUTROPHIL COUNT 3.6 10*3/uL Normal 1.4-6.5 [facility] Comment on above: Performed By: #### A CBC, LIPA2, CMPF #### Testing performed at [address] [address] Basophils/100 WBC (Bld) 0.3 % Normal 0.0-2.0 [facility] Comment on above: Performed By: #### A CBC, LIPA2, CMPF #### Testing performed at [address] [address] DTYPE AUTO DIFF Normal [facility] Comment on above: Performed By: #### A CBC, LIPA2, CMPF #### Testing performed at [address] [address] Eosinophils/100 WBC (Bld) 0.1 % Normal 0.0-11.0 [facility] Comment on above: Performed By: #### A CBC, LIPA2, CMPF #### Testing performed at [address] [address] Lymphocytes (Bld) [#/Vol] 0.8 10*3/uL Low 1.2-3.4 [facility] Comment on above: Performed By: #### A CBC, LIPA2, CMPF #### Testing performed at [address] [address] Lymphocytes/100 WBC (Bld) 17.9 % Low 20.0-55.0 [facility] Comment on above: Performed By: #### A CBC, LIPA2, CMPF #### Testing performed at [address] [address] Monocytes (Bld) [#/Vol] 0.1 10*3/uL Normal 0.0-0.7 [facility] Comment on above: Performed By: #### A CBC, LIPA2, CMPF #### Testing performed at [address] [address] Monocytes/100 WBC (Bld) 2.3 % Normal 0.0-10.0 [facility] Comment on above: Performed By: #### A CBC, LIPA2, CMPF #### Testing performed at [address] [address] Neutrophils/100 WBC (Bld) 79.4 % High 37.0-75.0 [facility] Comment on above: Performed By: #### A CBC, LIPA2, CMPF #### Testing performed at [address] [address] Erythrocyte distribution width (RBC) [Ratio] 14.8 % High 11.5-14.5 [facility] Comment on above: Performed By: #### A CBC, LIPA2, CMPF #### Testing performed at [address] [address] Hematocrit (Bld) [Volume fraction] 38.8 % Normal 36.0-48.0 [facility] Comment on above: Performed By: #### A CBC, LIPA2, CMPF #### Testing performed at [address] [address] Hemoglobin (Bld) [Mass/Vol] 13.0 g/dL Normal 12.0-16.0 [facility] Comment on above: Performed By: #### A CBC, LIPA2, CMPF #### Testing performed at [address] [address] MCH (RBC) [Entitic mass] 30.6 pg Normal 26.0-35.0 [facility] Comment on above: Performed By: #### A CBC, LIPA2, CMPF #### Testing performed at [address] [address] MCHC (RBC) [Mass/Vol] 33.5 g/dL Normal 27.0-37.0 [facility] Comment on above: Performed By: #### A CBC, LIPA2, CMPF #### Testing performed at [address] [address] MCV (RBC) [Entitic vol] 91.2 fL Normal 80.0-100.0 [facility] Comment on above: Performed By: #### A CBC, LIPA2, CMPF #### Testing performed at [address] [address] Platelet mean volume (Bld) [Entitic vol] 9.9 fL Normal 7.4-11.0 [facility] Comment on above: Performed By: #### A CBC, LIPA2, CMPF #### Testing performed at [address] [address] Platelets (Bld) [#/Vol] 234 10*3/uL Normal 130-400 [facility] Comment on above: Performed By: #### A CBC, LIPA2, CMPF #### Testing performed at [address] [address] RBC (Bld) [#/Vol] 4.25 10*6/uL Normal 4.0-5.4 [facility] Comment on above: Performed By: #### A CBC, LIPA2, CMPF #### Testing performed at [address] [address] WBC (Bld) [#/Vol] 4.5 10*3/uL Normal 3.6-11.0 [facility] Comment on above: Performed By: #### A CBC, LIPA2, CMPF #### Testing performed at [address] [address] CBC, EDIF, PLATELETon 2022 ABSOLUTE BASOPHIL COUNT 0.0 10*3/uL 0.0 - 0.2 10*3/uL [facility] Basophils/100 WBC (Bld) 0.3 % 0.0 - 2.0 % [facility] Differential cell count method Nom (Bld) AUTO DIFF % [facility] Eosinophils (Bld) [#/Vol] 0.0 10*3/uL 0.0 - 0.7 10*3/uL [facility] Eosinophils/100 WBC (Bld) 0.1 % 0.0 - 11.0 % [facility] Erythrocyte distribution width (RBC) [Ratio] 14.8 % High 11.5 - 14.5 % [facility] Hematocrit (Bld) [Volume fraction] 38.8 % 36.0 - 48.0 % [facility] Hemoglobin (Bld) [Mass/Vol] 13.0 g/dL [facility] Interpretation and review of laboratory results Abnormal [facility] Lymphocytes (Bld) [#/Vol] 0.8 10*3/uL Low 1.2 - 3.4 10*3/uL [facility] Lymphocytes/100 WBC (Bld) 17.9 % Low 20.0 - 55.0 % [facility] MCH (RBC) [Entitic mass] 30.6 pg 26.0 - 35.0 PG [facility] MCHC (RBC) [Mass/Vol] 33.5 g/dL [facility] MCV (RBC) [Entitic vol] 91.2 fL [facility] Monocytes (Bld) [#/Vol] 0.1 10*3/uL 0.0 - 0.7 10*3/uL [facility] Monocytes/100 WBC (Bld) 2.3 % 0.0 - 10.0 % [facility] Neutrophils (Bld) [#/Vol] 3.6 10*3/uL 1.4 - 6.5 10*3/uL [facility] Neutrophils/100 WBC (Bld) 79.4 % High 37.0 - 75.0 % [facility] Platelet mean volume (Bld) [Entitic vol] 9.9 fL [facility] Platelets (Bld) [#/Vol] 234 10*3/uL 130 - 400 10*3/uL [facility] RBC (Bld) [#/Vol] 4.25 10*6/uL 4.0 - 5.4 10*6/u L [facility] WBC (Bld) [#/Vol] 4.5 10*3/uL 3.6 - 11.0 10*3/u L [facility] CMP FASTINGon 11-02-2022 A:G RATIO 1.5 RATIO Normal [facility] Comment on above: Performed By: #### A CBC, LIPA2, CMPF #### Testing performed at [facility] [address] [place] [address] ALBUMIN 4.4 G/dl Normal 3.5-5.0 [facility] Comment on above: Performed By: #### A CBC, LIPA2, CMPF #### Testing performed at [address] [address] ALP [Catalytic activity/Vol] 87 U/L Normal 38-126 [facility] Comment on above: Performed By: #### A CBC, LIPA2, CMPF #### Testing performed at [address] [address] ALT [Catalytic activity/Vol] 22 U/L Normal <35 [facility] Comment on above: Performed By: #### A CBC, LIPA2, CMPF #### Testing performed at [address] [address] AST [Catalytic activity/Vol] 34 U/L Normal 14-36 [facility] Comment on above: Performed By: #### A CBC, LIPA2, CMPF #### Testing performed at [address] [address] Bilirubin [Mass/Vol] 0.4 mg/dL Normal 0.2-1.3 [facility] Comment on above: Performed By: #### A CBC, LIPA2, CMPF #### Testing performed at [address] [address] Calcium [Mass/Vol] 9.0 mg/dL Normal 8.4-10.2 [facility] Comment on above: Performed By: #### A CBC, LIPA2, CMPF #### Testing performed at [address] [address] Chloride [Moles/Vol] 106 mmol/L Normal 98-107 [facility] Comment on above: Result Comment: Yessy plascencia note: Triglyceride levels of 600mg/dL or higher may positively bias chloride results by approximately 2.1 mmol Performed By: #### A CBC, LIPA2, CMPF #### Testing performed at [address] [address] CO2 [Moles/Vol] 22 mmol/L Normal 22-30 [facility] Comment on above: Performed By: #### A CBC, LIPA2, CMPF #### Testing performed at [address] [address] Creatinine [Mass/Vol] 0.80 mg/dL Normal 0.70-1.20 [facility] Comment on above: Performed By: #### A CBC, LIPA2, CMPF #### Testing performed at [address] [address] EST. GFR, 106 ml/min/1.73sq.m [facility] Comment on above: Performed By: #### A CBC, LIPA2, CMPF #### Testing performed at [address] [address] EST. GFR,Non 88 ml/min/1.73sq.m [facility] Comment on above: Performed By: #### A CBC, LIPA2, CMPF #### Testing performed at [address] [address] GFR Information Average GFR for 30-39 years old = 107. Normal [facility] Comment on above: Result Comment: Sausage Linker alejandra Kidney disease, GFR = <60. Kidney failure, GFR = <15. The GFR estimate is not adjusted for extreme body surface area or acute process, nor has it been validated for women or ethnic groups other than and . Performed By: #### A CBC, LIPA2, CMPF #### Testing performed at [address] [address] Glucose [Mass/Vol] 119 mg/dL High 70-100 [facility] Comment on above: Result Comment: NORMAL <100 mg/dL PREDIABETES 101-126 mg/dL DIABETES 126 mg/dL or higher Performed By: #### A CBC, LIPA2, CMPF #### Testing performed at [address] [address] Potassium [Moles/Vol] 4.2 mmol/L Normal 3.5-5.1 [facility] Comment on above: Performed By: #### A CBC, LIPA2, CMPF #### Testing performed at [address] [address] Protein [Mass/Vol] 7.3 g/dL Normal 6.3-8.2 [facility] Comment on above: Performed By: #### A CBC, LIPA2, CMPF #### Testing performed at [address] [address] Sodium [Moles/Vol] 138 mmol/L Normal 137-145 [facility] Comment on above: Performed By: #### A CBC, LIPA2, CMPF #### Testing performed at [address] [address] Urea nitrogen [Mass/Vol] 8 mg/dL Normal 7-20 [facility] Comment on above: Performed By: #### A CBC, LIPA2, CMPF #### Testing performed at [address] [address] CNPNon 11-02-2022 CNPN Normal [facility] METABOLIC PANE Nestor 11-02-2022 Albumin [Mass/Vol] 4.4 G/dl 3.5 - 5.0 G/dl [facility] Albumin/Globulin [Mass ratio] 1.5 {ratio} RATIO [facility] ALP [Catalytic activity/Vol] 87 U/L [facility] ALT [Catalytic activity/Vol] 22 U/L NINF [facility] AST [Catalytic activity/Vol] 34 U/L [facility] Bilirubin [Mass/Vol] 0.4 mg/dL [facility] Calcium [Mass/Vol] 9.0 mg/dL [facility] Chloride [Moles/Vol] 106 mmol/L [facility] Comment on above: Please note: Triglyc eride levels of 600mg/dL or higher may positively bias chloride results by approximately 2.1 mmol CO2 [Moles/Vol] 22 mmol/L [facility] Creatinine [Mass/Vol] 0.80 mg/dL [facility] GFR COMMENT Average GFR for 30-39 years old = 107. [facility] Comment on above: Chronic Kidney disea se, GFR = <60. Kidney failure, GFR = <15. The GFR estimate is not adjusted for extreme body surface area or acute process, nor has it been validated for women or ethnic groups other than and . GFR/1.73 sq M.predicted among blacks MDRD (S/P/Bld) [Vol rate/Area] 106 mL/min/{1.73_m2} ml/min/1.73sq.m [facility] GFR/1.73 sq M.predicted among non-blacks MDRD (S/P/Bld) [Vol rate/Area] 88 mL/min/{1.73_m2} ml/min/1.73sq.m [facility] Glucose post fast [Mass/Vol] 119 mg/dL High [facility] Comment on above: NORMAL <100 mg/dL PREDIABETES 101-126 mg/dL DIABETES 126 mg/dL or higher Interpretation and review of laboratory results Abnormal [facility] Potassium [Moles/Vol] 4.2 mmol/L [facility] Protein [Mass/Vol] 7.3 g/dL [facility] Sodium [Moles/Vol] 138 mmol/L [facility] Urea nitrogen [Mass/Vol] 8 mg/dL [facility] HCG ( test) Ql (U)o n 11-02-2022 [facility] HCG QUALITATIVE, URINEon HCG ( test) Ql (U) Negative NEGATIVE [facility] LACTATE, BLOODon 11-02-2022 Lactate [Moles/Vol] 1.3 mmol/L 0.7 - 2.0 mmol/L [facility] LACTATE,BLOODon 11-02-2022 Lactate [Moles/Vol] 1.3 mmol/L Normal 0.7-2.0 [facility] Comment on above: Performed By: #### L ACTAC #### Testing performed at [place] [id number] LIPASEon 11-02-2022 Lipase [Catalytic activity/Vol] 105 U/L 23 - 300 U/L [facility] LIPASE,SERUMon 11-02-2022 LIPASE,SERUM 105 U/L Normal 23-300 [facility] Comment on above: Performed By: #### A CBC, LIPA2, CMPF #### Testing performed at [address] [address] No Panel Informationon 11-02 [facility] RAD - MISCon 11-02-2022 RAD - MISC [id number] Normal [facility] URINALYSIS, MACROon 11-03-19 23 Bilirubin Ql (U) Negative NEGATIVE [facility] Clarity (U) CLEAR CLEAR [facility] Color (U) YELLOW YELLOW [facility] Glucose Test strip (U) [Mass/Vol] Negative NEGATIVE mg/dl [facility] Hemoglobin Ql (U) Negative NEGATIVE [facility] Interpretation and review of laboratory results Abnormal [facility] Ketones (U) [Mass/Vol] Negative NEGATIVE mg/dl [facility] Leukocyte esterase Test strip Ql (U) Negative NEGATIVE [facility] Nitrite Ql (U) Negative NEGATIVE [facility] pH (U) 8.5 [pH] High 5.0 - 7.0 [facility] Protein Ql (U) Negative NEGATIVE mg/dl [facility] Specific gravity (U) [Rel density] 1.020 1.010 - 1.025 [facility] Urobilinogen (U) [Mass/Vol] 1.0 mg/dL [facility] URINE HCG QUALon 11-02-2022 Beta HCG ( test) Ql (U) Negative Normal NEGATIVE [facility] Comment on above: Performed By: #### U HCGT, UMAC #### Testing performed at [address] [address] URINE MACROSCOPICon 11-03-19 23 Bilirubin Ql (U) Negative Normal NEGATIVE [facility] Comment on above: Performed By: #### U HCGT, UMAC #### Testing performed at [address] [address] Clarity (U) CLEAR Normal CLEAR [facility] Comment on above: Performed By: #### U HCGT, UMAC #### Testing performed at [address] [place] [address] Color (U) YELLOW Normal YELLOW [facility] Comment on above: Performed By: #### U HCGT, UMAC #### Testing performed at [address] [address] Glucose Ql (U) Negative Normal NEGATIVE [facility] Comment on above: Performed By: #### U HCGT, UMAC #### Testing performed at [address] [address] pH (U) 8.5 [pH] High 5.0-7.0 [facility] Comment on above: Performed By: #### U HCGT, UMAC #### Testing performed at [address] [address] URINE HEMOGLOBIN Negative Normal NEGATIVE [facility] Comment on above: Performed By: #### U HCGT, UMAC #### Testing performed at [address] [place] [address] URINE KETONE Negative Normal NEGATIVE [facility] Comment on above: Performed By: #### U HCGT, UMAC #### Testing performed at [address] [address] URINE LEUKOTEST Negative Normal NEGATIVE [facility] Comment on above: Performed By: #### U HCGT, UMAC #### Testing performed at [address] [address] URINE NITRATES Negative Normal NEGATIVE [facility] Comment on above: Performed By: #### U HCGT, UMAC #### Testing performed at [address] [address] URINE SPEC GRAVITY 1.020 Normal 1.010-1.025 [facility] Comment on above: Performed By: #### U HCGT, UMAC #### Testing performed at [address] [place] [address] URINE TOTAL PROTEIN Negative Normal NEGATIVE [facility] Comment on above: Performed By: #### U HCGT, UMAC #### Testing performed at [address] [address] Urobilinogen Qn (U) 1.0 {Munir'U}/dL Normal 0.2-1.0 [facility] Comment on above: Performed By: #### U HCGT, UMAC #### Testing performed at [address] [place] [address] CBC with Auto Differentialon 10-31-2022 Basophils (Bld) [#/Vol] [facility] Basophils/100 WBC (Bld) 0 % 0 - 2 % [facility] Eosinophils (Bld) [#/Vol] 0.03 10*3/uL [facility] Eosinophils/100 WBC (Bld) 0 % Low 1 - 4 % [facility] Erythrocyte distribution width (RBC) [Ratio] 12.8 % 11.8 - 14.4 % [facility] Hematocrit (Bld) [Volume fraction] 38.9 % 36.3 - 47.1 % [facility] Hemoglobin (Bld) [Mass/Vol] 13.3 g/dL 11.9 - 15.1 g/dL [facility] Immature granulocytes (Bld) [#/Vol] [facility] Immature granulocytes/100 WBC (Bld) 0 % 0 [facility] Interpretation and review of laboratory results Abnormal [facility] Lymphocytes/100 WBC (Bld) 19 % Low 24 - 43 % [facility] Lymphocytes/100 WBC (Bld) 1.46 % [facility] MCH (RBC) [Entitic mass] 30.6 pg 25.2 - 33.5 pg [facility] MCHC (RBC) [Mass/Vol] 34.2 g/dL 28.4 - 34.8 g/dL [facility] MCV (RBC) [Entitic vol] 89.4 fL 82.6 - 102.9 fL [facility] Monocytes/100 WBC (Bld) 5 % 3 - 12 % [facility] Monocytes/100 WBC (Bld) 0.41 % [facility] Neutrophils/100 WBC (Bld) 76 % High 36 - 65 % [facility] Nucleated RBC/100 WBC (Bld) [Ratio] 0.0 % 0.0 per 100 WBC [facility] Platelet mean volume (Bld) [Entitic vol] 12.0 fL 8.1 - 13.5 fL [facility] Platelets (Bld) [#/Vol] 246 10*3/uL [facility] RBC (Bld) [#/Vol] 4.35 10*6/uL 3.95 - 5.11 m/uL [facility] Segmented neutrophils/100 WBC (Bld) 5.66 % [facility] WBC other (Bld) [#/Vol] 7.[address] [facility] CBC with Diffon 10-31-2022 Abs. Basophil <0.03 Normal 0.00-0.20 [facility] Comment on above: Performed By: #### L IP, CP, CDP #### [address] [place], [place] [id number] Emergency Medical Dispatcher: Baldomero Espinoza MD Abs.Imm.Granulocyte <0.03 Normal 0.00-0.30 [facility] Comment on above: Performed By: #### L IP, CP, CDP #### [address] [place], [facility]83 Emergency Medical Dispatcher: Baldomero Espinoza MD Abs.Neutrophil (Seg) 5.66 k/uL Normal 1.50-8.10 [facility] Comment on above: Performed By: #### L IP, CP, CDP #### [address] [place] [id number] Emergency Medical Dispatcher: Baldomero Espinoza MD Basophils/100 WBC (Bld) 0 % Normal 0-2 [facility] Comment on above: Performed By: #### L IP, CP, CDP #### [address] [place], [place] [address] Emergency Medical Dispatcher: Baldomero Espinoza MD Eosinophils (Bld) [#/Vol] 0.03 10*3/uL Normal 0.00-0.44 [facility] Comment on above: Performed By: #### L IP, CP, CDP #### [address] [place], [facility] Emergency Medical Dispatcher: Baldomero Espinoza MD Eosinophils/100 WBC (Bld) 0 % Low 1-4 [facility] Comment on above: Performed By: #### L IP, CP, CDP #### [address] [place], [facility] Emergency Medical Dispatcher: Baldomero Espinoza MD Erythrocyte distribution width (RBC) [Ratio] 12.8 % Normal 11.8-14.4 [facility] Comment on above: Performed By: #### L IP, CP, CDP #### [address] [place] [address] Emergency Medical Dispatcher: Baldomero Espinoza MD Hematocrit (Bld) [Volume fraction] 38.9 % Normal 36.3-47.1 [facility] Comment on above: Performed By: #### L IP, CP, CDP #### [facility] [address] [place] [address] Emergency Medical Dispatcher: Baldomero Espinoza MD Hemoglobin (Bld) [Mass/Vol] 13.3 g/dL Normal 11.9-15.1 [facility] Comment on above: Performed By: #### L IP, CP, CDP #### [facility] [address] [place] [address] Emergency Medical Dispatcher: Baldomero Espinoza MD Immature granulocytes/100 WBC (Bld) 0 % Normal 0 [facility] Comment on above: Performed By: #### L IP, CP, CDP #### [facility] [address] [place] [address] [place], [facility] Emergency Medical Dispatcher: Baldomero Espinoza MD Lymphocytes (Bld) [#/Vol] 1.46 10*3/uL Normal 1.10-3.70 [facility] Comment on above: Performed By: #### L IP, CP, CDP #### [address] [place] [address] Emergency Medical Dispatcher: Baldomero Espinoza MD Lymphocytes/100 WBC (Bld) 19 % Low 24-43 [facility] Comment on above: Performed By: #### L IP, CP, CDP #### [facility] [address] [place], [facility] Emergency Medical Dispatcher: Baldomero Espinoza MD MCH (RBC) [Entitic mass] 30.6 pg Normal 25.2-33.5 [facility] Comment on above: Performed By: #### L IP, CP, CDP #### [facility] [address] [place] [address] Emergency Medical Dispatcher: Baldomero Espinoza MD MCHC (RBC) [Mass/Vol] 34.2 g/dL Normal 28.4-34.8 [facility] Comment on above: Performed By: #### L JUDITH BROWN, CDP #### [address] [place], [place] [id number] Emergency Medical Dispatcher: Baldomero Espinoza MD MCV (RBC) [Entitic vol] 89.4 fL Normal 82.6-102.9 [facility] Comment on above: Performed By: #### L JUDITH BROWN, CDP #### [address] [place], [place] [id number] Emergency Medical Dispatcher: Baldomero Espinoza MD Monocytes (Bld) [#/Vol] 0.41 10*3/uL Normal 0.10-1.20 [facility] Comment on above: Performed By: #### L JUDITH BROWN, CDP #### [address] [place], [place] [id number] Emergency Medical Dispatcher: Baldomero Espinoza MD Monocytes/100 WBC (Bld) 5 % Normal 3-12 [facility] Comment on above: Performed By: #### L JUDITH BROWN, CDP #### [address] [place], [place] [id number] Emergency Medical Dispatcher: Baldomero Espinoza MD Neutrophil (Seg) 76 % High 36-65 [facility] Comment on above: Performed By: #### L JUDITH BROWN, CDP #### [address] [place], [place] [id number] Emergency Medical Dispatcher: Baldomero Espinoza MD NRBC Automated 0.0 per 100 WBC Normal 0.0 [facility] Comment on above: Performed By: #### L JUDITH BROWN, CDP #### [address] [place], [place] [address] Emergency Medical Dispatcher: Baldomero Espinoza MD Platelet mean volume (Bld) [Entitic vol] 12.0 fL Normal 8.1-13.5 [facility] Comment on above: Performed By: #### L IP, CP, CDP #### [facility] [address] [place], [place] [address] Emergency Medical Dispatcher: Baldomero Espinoza MD Platelets (Bld) [#/Vol] 246 10*3/uL Normal 138-453 [facility] Comment on above: Performed By: #### L IP, CP, CDP #### [facility] [address] [place], [place] [address]83 Emergency Medical Dispatcher: Baldomero Espinoza MD RBC (Bld) [#/Vol] 4.35 10*6/uL Normal 3.95-5.11 [facility] Comment on above: Performed By: #### L KEVIN CP, CDP #### [facility] [address] [place], [place] [id number] Emergency Medical Dispatcher: Baldomero Espinoza MD WBC (Bld) [#/Vol] 7.6 10*3/uL Normal 3.5-11.3 [facility] Comment on above: Performed By: #### L KEVIN CP, CDP #### [facility] [address] [place], [facility]83 Emergency Medical Dispatcher: Baldomero Espinoza MD [facility] 10-31-2022 Albumin [Mass/Vol] 4.5 g/dL 3.5 - 5.2 g/dL [facility] Albumin/Globulin [Mass ratio] 1.7 {ratio} 1.0 - 2.5 [facility] ALP [Catalytic activity/Vol] 76 U/L 35 - 104 U/L [facility] ALT [Catalytic activity/Vol] 14 U/L 5 - 33 U/L [facility] Anion gap [Moles/Vol] 12 mmol/L 9 - 17 mmol/L [facility] AST [Catalytic activity/Vol] 24 U/L NINF - 32 U/L [facility] Bilirubin [Mass/Vol] 0.3 mg/dL 0.3 - 1.2 mg/dL [facility] Calcium [Mass/Vol] 9.1 mg/dL 8.6 - 10.4 mg/dL [facility] Chloride [Moles/Vol] 106 mmol/L 98 - 107 mmol/L [facility] CO2 [Moles/Vol] 18 mmol/L Low 20 - 31 mmol/L [facility] Creatinine [Mass/Vol] 0.7 mg/dL 0.5 - 0.9 mg/dL [facility] GFR/1.73 sq M.predicted MDRD (S/P/Bld) [Vol rate/Area] - PINF [facility] Comment on above: These results are not [...] [Mass/Vol] 87 mg/dL 70 - 99 mg/dL [facility] Interpretation and review of laboratory results Abnormal [facility] Potassium [Moles/Vol] 3.8 mmol/L 3.7 - 5.3 mmol/L [facility] Protein [Mass/Vol] 7.2 g/dL 6.4 - 8.3 g/dL [facility] Sodium [Moles/Vol] 136 mmol/L 135 - 144 mmol/L [facility] Urea nitrogen [Mass/Vol] 7 mg/dL 6 - 20 mg/dL [facility] Urea nitrogen/Creatinine [Mass ratio] 10 mg/mg 9 - 20 [facility] Comp Metabolic Profon 2022 Albumin [Mass/Vol] 4.5 g/dL Normal 3.5-5.2 [facility] Comment on above: Performed By: #### L IP, CP, CDP #### [facility] [address] [place] [address] Emergency Medical Dispatcher: Baldomero Espinoza MD Albumin/Glob Ratio 1.7 Normal 1.0-2.5 [facility] Comment on above: Performed By: #### L IP, CP, CDP #### [facility] [address] [place], [place] [address] Emergency Medical Dispatcher: Baldomero Espinoza MD Alkaline Phos 76 U/L Normal 35-104 [facility] Comment on above: Performed By: #### L IP, CP, CDP #### [facility] [address] [place], [place] [address]201883 Emergency Medical Dispatcher: Baldomero Espinoza MD ALT [Catalytic activity/Vol] 14 U/L Normal 5-33 [facility] Comment on above: Performed By: #### L IP, CP, CDP #### [facility] [address] [place], [place] [address]32783 Emergency Medical Dispatcher: Baldomero Espinoza MD Anion gap [Moles/Vol] 12 mmol/L Normal 9-17 [facility] Comment on above: Performed By: #### L IP, CP, CDP #### [facility] [address] [place] [address] Dr[address] [place], [place] 5634983 Emergency Medical Dispatcher: Baldomero Espinoza MD AST [Catalytic activity/Vol] 24 U/L Normal <32 [facility] Comment on above: Performed By: #### L IP, CP, CDP #### [facility] [address] [place], [place] [address]83 Emergency Medical Dispatcher: Baldomero Espinoza MD Bilirubin [Mass/Vol] 0.3 mg/dL Normal 0.3-1.2 [facility] Comment on above: Performed By: #### L IP, CP, CDP #### [facility] [address] [place], [place] [address]366[address] Emergency Medical Dispatcher: Baldomero Espinoza MD BUN/CRE Ratio 10 Normal 9-20 [facility] Comment on above: Performed By: #### L IP, CP, CDP #### [facility] [address] [place], [place] 7817783 Emergency Medical Dispatcher: Baldomero Espinoza MD Calcium [Mass/Vol] 9.1 mg/dL Normal 8.6-10.4 [facility] Comment on above: Performed By: #### L IP, CP, CDP #### [facility] [address] [place] [address] Emergency Medical Dispatcher: Baldomero Espinoza MD Chloride [Moles/Vol] 106 mmol/L Normal 98-107 [facility] Comment on above: Performed By: #### L IP, CP, CDP #### [facility] [address] [place] [address] Emergency Medical Dispatcher: Baldomero Espinoza MD CO2 [Moles/Vol] 18 mmol/L Low 20-31 [facility] Comment on above: Performed By: #### L IP, CP, CDP #### [facility] [address] [place] [address] Emergency Medical Dispatcher: Baldomero Espinoza MD Creatinine [Mass/Vol] 0.7 mg/dL Normal 0.5-0.9 [facility] Comment on above: Performed By: #### L KEVIN CP, CDP #### [facility] [address] [place] [address] Emergency Medical Dispatcher: Baldomero Espinoza MD GFR/1.73 sq M.predicted among non-blacks MDRD (S/P/Bld) [Vol rate/Area] mL/min/{1.73_m2} Normal >60 [facility] Comment on above: Result Comment: These [...] By: #### L IP, CP, CDP #### [facility] [address] [place] [address] Emergency Medical Dispatcher: Baldomero Espinoza MD Glucose [Mass/Vol] 87 mg/dL Normal 70-99 [facility] Comment on above: Performed By: #### L IP, CP, CDP #### [facility] [address] [place], [place] 1435383 Emergency Medical Dispatcher: Baldomero Espinoza MD Potassium [Moles/Vol] 3.8 mmol/L Normal 3.7-5.3 [facility] Comment on above: Performed By: #### L IP, CP, CDP #### [facility] [address] [place], [place] 9057283 Emergency Medical Dispatcher: Baldomero Espinoza MD Protein [Mass/Vol] 7.2 g/dL Normal 6.4-8.3 [facility] Comment on above: Performed By: #### L IP, CP, CDP #### [facility] [address] [place] [address] Dr. [place], [place] 9775883 Emergency Medical Dispatcher: Baldomero Espinoza MD Sodium [Moles/Vol] 136 mmol/L Normal 135-144 [facility] Comment on above: Performed By: #### L IP, CP, CDP #### [address] [place], [place] 6376183 Emergency Medical Dispatcher: Baldomero Espinoza MD Urea nitrogen [Mass/Vol] 7 mg/dL Normal 6-20 [facility] Comment on above: Performed By: #### L IP, CP, CDP #### [facility] [address] [place], [place] 169[address]83 Emergency Medical Dispatcher: Baldomero Espinoza MD Lipaseon 10-31-2022 Lipase [Catalytic activity/Vol] 43 U/L Normal 13-60 [facility] Comment on above: Performed By: #### L IP, CP, CDP #### [facility] [address] [place], [place] [address]68183 Emergency Medical Dispatcher: Baldomero Espinoza MD Lipase [Catalytic activity/Vol] 43 U/L 13 - 60 U/L [facility] Microscopic Urinalysison Bacteria LM Ql (Urine sed) 1+ Abnormal None [facility] Epithelial cells LM.HPF (Urine sed) [#/Area] 2 TO 5 [facility] Interpretation and review of laboratory results Abnormal [facility] RBC LM.HPF (Urine sed) [#/Area] None [facility] WBC LM.HPF (Urine sed) [#/Area] None [facility] No Panel Informationon 10-31 [facility] UA w/Reflex Cultureon 2022 Bilirubin, SemiQt,Ur Negative Normal NEG [facility] Comment on above: Performed By: #### U MICAO, UAX ####[facility] , [place] [address] Lab Director: Baldomero Espinoza MD Blood, Urine Negative Normal NEG [facility] Comment on above: Performed By: #### U MICAO, UAX ####[facility] [place] [address] Lab Director: Baldomero Espinoza MD Clarity (U) Clear Normal CLEAR [facility] Comment on above: Performed By: #### U MICAO, UAX ####[facility] [place] [address] Lab Director: Baldomero Espinoza MD Color (U) Yellow Normal YEL [facility] Comment on above: Performed By: #### U MICAO, UAX ####[facility] [place] [address] Lab Director: Baldomero Espinoza MD Glucose Ql (U) Negative Normal NEG [facility] Comment on above: Performed By: #### U MICAO, UAX ####[facility] , [place] 3406[address] Lab Director: Baldomero Espinoza MD Ketones Ql (U) Negative Normal NEG [facility] Comment on above: Performed By: #### U MICAO, UAX ####[address] [place] [address] [facility] Director: Baldomero Espinoza MD Leukocyte esterase Test strip Ql (U) Negative Normal NEG [facility] Comment on above: Performed By: #### U MICAO, UAX ####[address] [place] [address] [facility] Director: Baldomero Espinoza MD Nitrite,Ur Negative Normal NEG [facility] Comment on above: Performed By: #### U MICAO, UAX ####[address] , [place] [address] lab Director: Baldomero Espinoza MD PH,Ur 7.0 Normal 5.0-9.0 [facility] Comment on above: Performed By: #### U MICAO, UAX ####[address] [place] [address] [facility] Director: Baldomero Espinoza MD Protein Ql (U) Negative Normal NEG [facility] Comment on above: Performed By: #### U MICAO, UAX ####[address] [place] [address] lab Director: Baldomero Espinoza MD Spec. [place],Ur 1.015 Normal 1.010-1.020 [facility] Comment on above: Performed By: #### U MICAO, UAX ####[address] , [place] [address] lab Director: Baldomero Espinoza MD Urobilinogen,Ur Normal Normal 0.0-1.0 [facility] Comment on above: Performed By: #### U MICAO, UAX ####[address] , [place] [address] lab Director: Baldomero Espinoza MD Urinalysis with Reflex to Cu ltureon 10-31-2022 Bilirubin Ql (U) Negative NEGATIVE [facility] Clarity (U) Clear Clear [facility] Color (U) Yellow Yellow [facility] Glucose Test strip (U) [Mass/Vol] Negative NEGATIVE mg/dL [facility] Hemoglobin Auto test strip Ql (U) Negative NEGATIVE [facility] Ketones (U) [Mass/Vol] Negative NEGATIVE mg/dL [facility] Leukocyte esterase Test strip Ql (U) Negative NEGATIVE [facility] Nitrite Ql (U) Negative NEGATIVE [facility] pH (U) 7.0 [pH] 5.0 - 9.0 [facility] Protein (U) [Mass/Vol] Negative NEGATIVE mg/dL [facility] Specific gravity (U) [Rel density] 1.015 1.010 - 1.020 [facility] Urobilinogen Qn (U) Normal 0.0 - 1.0 EU/dL [facility] Urinalysis,Microon 3 Bacteria 1+ Abnormal NONE [facility] Comment on above: Performed By: #### U LAURENO, UAX ####[address] , [facility]83 Lab Director: Baldomero Espinoza MD Epithelial cells LM Ql (Urine sed) 2 TO 5 Normal 0-25 [facility] Comment on above: Performed By: #### U LAURENO, UAX ####[facility] [place] [address] , [facility]83 lab Director: Baldomero Espinoza MD Urine RBC's None Normal 0-2 [facility] Comment on above: Performed By: #### U MICAO, UAX ####[address] [place] [address] lab Director: Baldomero Espinoza MD Urine WBC's None Normal 0-5 [facility] Comment on above: Performed By: #### U MICAO, UAX ####[facility] [place] [address] lab Director: Baldomero Espinoza MD XR LUMBAR [...] E Regalado MD 10/31/22 Final result Normal [facility] 1. No acute vertebral body height loss or malalignment within the lumbar spine. 2. Mild anterior wedging of lower thoracic vertebral bodies, similar to the prior CT of 07/27/2021. 3. Prior cholecystectomy. Moderate stool burden. [facility] RIS CONSOLIDATED EXAMINATION: 5 XRAY VIEWS OF [...] sacral arcuate lines appear intact. Pelvic phleboliths. [facility] RIS CONSOLIDATED Sabine, Luis E R, MD - 10/31/2022 EXAMINATION: 5 XRAY VIEWS [...] 07/27/2021. 3. Prior cholecystectomy. Moderate stool burden. [facility] Radiology Study observation (narrative) [facility] XR LUMBAR SPINE (MIN 4 VIEWS )Ordered By: Luis E Regalado on 10-31-2022 [facility] Work Phone: Transfer Inon 10-30-2022 Transfer In [id number] 6#1.00CD:127 [facility] Discharge Instructionson Discharge Instructions [id number] 183#1.00CD:127 [facility] Comment on above: Other Comment: wrong folder Population Healthon 10-30-19 23 Population Health [facility] Auth for Release of Medical Recordson 10-28-2022 Auth for Release of Medical Records [id number] 7#1.00CD:127 [facility] CBC panel Auto (Bld)on 10-28 Erythrocyte distribution width (RBC) [Ratio] 13.2 % Normal 11.5-15.0 [facility] Comment on above: Order Comment: Speci men Type: BLOOD SPECIMENOrdering Facility: [facility] Address: [address] [address] Performed By: #### 5 8410-2 ####[facility] [id number] [address] OF [facility] Hematocrit (Bld) [Volume fraction] 33.4 % Low 36.0-46.0 [facility] Comment on above: Order Comment: Speci men Type: BLOOD SPECIMENOrdering Facility: [facility] Address: [address] [address] Performed By: #### 5 8410-2 ####[facility] [id number] [address] [place] Hemoglobin (Bld) [Mass/Vol] 10.9 g/dL Low 11.5-15.5 [facility] Comment on above: Order Comment: Speci men Type: BLOOD SPECIMENOrdering Facility: [facility] Address: [address] [address] Performed By: #### 5 8410-2 ####[facility] [id number] [place] [address] [place] MCH (RBC) [Entitic mass] 30.4 pg Normal 26.0-34.0 [facility] Comment on above: Order Comment: Speci men Type: BLOOD SPECIMENOrdering Facility: [facility] Address: [address] [address] Performed By: #### 5 8410-2 ####[facility] [id number] [address] [place] MCHC (RBC) [Mass/Vol] 32.6 g/dL Normal 30.5-36.0 [facility] Comment on above: Order Comment: Speci men Type: BLOOD SPECIMENOrdering Facility: [facility] Address: [address] [address] Performed By: #### 5 8410-2 ####[facility] [id number] [place] [address] [place] MCV (RBC) [Entitic vol] 93.3 fL Normal 80.0-100.0 [facility] Comment on above: Order Comment: Speci men Type: BLOOD SPECIMENOrdering Facility: [facility] Address: [address] [address] Performed By: #### 5 8410-2 ####[facility] [id number] [address] [place] Nucleated RBC (Bld) [#/Vol] 10*3/uL Normal <0.01 [facility] Comment on above: Order Comment: Speci men Type: BLOOD SPECIMENOrdering Facility: [facility] Address: [address] [place] [address] Performed By: #### 5 8410-2 ####[facility] [id number] [place] [address] [place] Platelet mean volume (Bld) [Entitic vol] 11.7 fL Normal 9.0-12.7 [facility] Comment on above: Order Comment: Speci men Type: BLOOD SPECIMENOrdering Facility: [facility] Address: [address] [place] [address] Performed By: #### 5 8410-2 ####[facility] [id number] [place] [address] [place] Platelets (Bld) [#/Vol] 174 10*3/uL Normal 150-400 [facility] Comment on above: Order Comment: Speci men Type: BLOOD SPECIMENOrdering Facility: [facility] Address: [address] [address] Performed By: #### 5 8410-2 ####[facility] [id number] [place] [address] [place] RBC (Bld) [#/Vol] 3.58 10*6/uL Low 3.90-5.20 [facility] Comment on above: Order Comment: Speci men Type: BLOOD SPECIMENOrdering Facility: [facility] Address: [address] Performed By: #### 5 8410-2 ####[facility] [id number] [place] [address] [place] WBC (Bld) [#/Vol] 4.62 10*3/uL Normal 3.70-11.00 [facility] Comment on above: Order Comment: Speci men Type: BLOOD SPECIMENOrdering Facility: [facility] Address: [address] Performed By: #### 5 8410-2 ####[facility] [id number] [place] [address] [place] CNDSon 10-28-2022 CNDS Normal [facility] Comprehensive metabolic 2000 panelon 10-28-2022 Albumin [Mass/Vol] 3.2 g/dL Low 3.9-4.9 [facility] Comment on above: Order Comment: Speci men Type: BLOOD SPECIMENOrdering Facility: [facility] Address: [address] Performed By: #### 2 4323-8, , 2776-02 ####[facility] [id number] [place], [place] [address] [address] [place] ALP [Catalytic activity/Vol] 54 U/L Normal 34-123 [facility] Comment on above: Order Comment: Speci men Type: BLOOD SPECIMENOrdering Facility: [facility] Address: [address] Performed By: #### 2 4323-8, 69293-9, 2776-1 ####[facility] [id number] [place] [address] [place] ALT [Catalytic activity/Vol] 11 U/L Normal 7-38 [facility] Comment on above: Order Comment: Speci men Type: BLOOD SPECIMENOrdering Facility: [facility] Address: [address] Performed By: #### 2 4323-8, , 2776-02 ####[facility]ORYCL[facility] [id number] [facility] [place] [address] [place] Anion gap [Moles/Vol] 9 mmol/L Normal 9-18 [facility] Comment on above: Order Comment: Speci men Type: BLOOD SPECIMENOrdering Facility: [facility] Address: [address] [place], [place] [address] Performed By: #### 2 4323-8, , 2776-02 ####[facility]ITAL[facility] [id number] [place] [address] [place] AST [Catalytic activity/Vol] 23 U/L Normal 13-35 [facility] Comment on above: Order Comment: Speci men Type: BLOOD SPECIMENOrdering Facility: [facility] Address: [address] [place], [place] [address] Performed By: #### 2 4323-8, , 2776-02 ####[facility] [id number] [facility] [place] [address] [place] Bilirubin [Mass/Vol] 0.3 mg/dL Normal 0.2-1.3 [facility] Comment on above: Order Comment: Speci men Type: BLOOD SPECIMENOrdering Facility: [facility] Address: [address] [place], [place] [address] Performed By: #### 2 4323-8, , 2776-02 ####[facility] [id number] [facility] [place] [address] [place] Calcium [Mass/Vol] 8.3 mg/dL Low 8.5-10.2 [facility] Comment on above: Order Comment: Speci men Type: BLOOD SPECIMENOrdering Facility: [facility] Address: [address] [place], [place] [address] Performed By: #### 2 4323-8, , 2776-02 ####[facility] [id number] [place] [address] [place] Chloride [Moles/Vol] 108 mmol/L High 97-105 [facility] Comment on above: Order Comment: Speci men Type: BLOOD SPECIMENOrdering Facility: [facility] Address: [address] [place] [address] Performed By: #### 2 4323-8, 43577-3, 2776-02 ####[facility]ORYCLIA [id number] [place] [address] [place] CO2 [Moles/Vol] 21 mmol/L Low 22-30 [facility] Comment on above: Order Comment: Speci men Type: BLOOD SPECIMENOrdering Facility: [facility] Address: [address] [place] [address] Performed By: #### 2 4323-8, , 2776-02 ####[facility] [id number] [address] [address] [place] Creatinine [Mass/Vol] 0.76 mg/dL Normal 0.58-0.96 [facility] Comment on above: Order Comment: Speci men Type: BLOOD SPECIMENOrdering Facility: [facility] Address: [address] [place] [address] Performed By: #### 2 4323-8, , 2776-02 ####[facility] [id number] [address] OF [facility] Creatinine and Glomerular filtration rate.predicted panel (S/P/Bld) 106 mL/min/1.73m??? Normal >=60 [facility] Comment on above: Order Comment: Speci men Type: BLOOD SPECIMENOrdering Facility: [facility] Address: [address] [place] [address] Result Comment: Jessica mated Glomerular Filtration Rate [...] Performed By: #### 2 4323-8, , 2776-02 ####[facility] [id number] [facility] [place] [address] [place] Glucose [Mass/Vol] 84 mg/dL Normal 74-99 [facility] Comment on above: Order Comment: Geraldo marrero Type: BLOOD SPECIMENOrdering Facility: [facility] Address: [address] [id number] Result Comment: The [place] [employer] (ADA) provides guidance for cutoff [...] Standards of Medical Care in Diabetes 2016, [place] [employer]. Diabetes Care. 2016.39(Suppl 1). Performed By: #### 2 4323-8, , 2776-02 ####[facility] [id number] [facility] [place] [address] [place] Potassium [Moles/Vol] 4.1 mmol/L Normal 3.7-5.1 [facility] Comment on above: Order Comment: Geraldo marrero Type: BLOOD SPECIMENOrdering Facility: [facility] Address: [address] [place] [address] Performed By: #### 2 4323-8, , 2776-02 ####[facility] [id number] [facility] [place] [address] [place] Protein [Mass/Vol] 5.2 g/dL Low 6.3-8.0 [facility] Comment on above: Order Comment: Speci men Type: BLOOD SPECIMENOrdering Facility: [facility] Address: [address] [place], [place] [address] Performed By: #### 2 4323-8, , 2776-02 ####[facility] [id number] [place] [address] [place] Sodium [Moles/Vol] 138 mmol/L Normal 136-144 [facility] Comment on above: Order Comment: Speci men Type: BLOOD SPECIMENOrdering Facility: [facility] Address: [address] [place] [address] Performed By: #### 2 4323-8, , 2776-02 ####[facility] [id number] [place] [id number] [place] Urea nitrogen [Mass/Vol] 7 mg/dL Normal 7-21 [facility] Comment on above: Order Comment: Speci men Type: BLOOD SPECIMENOrdering Facility: [facility] Address: [address] [place] [address] Performed By: #### 2 4323-8, , 2776-02 ####[facility] [id number] [place] [id number] [place] [employer] 10-28-2022 Forms [id number] E6#1.00CD:127 Normal [facility] Magnesium [Mass/Vol] 1.9 mg/dL Normal 1.7-2.3 [facility] Comment on above: Order Comment: Speci men Type: BLOOD SPECIMENOrdering Facility: [facility] Address: [address] [place], [place] [address] Performed By: #### 2 4323-8, , 2776-02 ####[facility] [id number] [place] [address] [place] Phosphate SerPl-mCncon 10-28 Phosphate [Mass/Vol] 3.2 mg/dL Normal 2.7-4.8 [facility] Comment on above: Order Comment: Speci men Type: BLOOD SPECIMENOrdering Facility: [facility] Address: [address] [place] [address] Performed By: #### 2 4323-8, 63151-7, 2777-1 ####[facility]ORATORYCLIA [id number] [place] [address] [place] ANES POSTPROC EVALon 023 ANES POSTPROC EVAL Normal [facility] ANES PRE-OPon 10-27-2022 ANES PRE-OP Normal [facility] CBC panel Auto (Bld)on 10-27 Erythrocyte distribution width (RBC) [Ratio] 13.3 % Normal 11.5-15.0 [facility] Comment on above: Order Comment: Speci men Type: BLOOD SPECIMENOrdering Facility: [facility] Address: [address] [place] [address] Performed By: #### 5 8410-2 ####[facility] [id number] [place] [address] [place] Hematocrit (Bld) [Volume fraction] 33.6 % Low 36.0-46.0 [facility] Comment on above: Order Comment: Speci men Type: BLOOD SPECIMENOrdering Facility: [facility] Address: [address] [place] [address] Performed By: #### 5 8410-2 ####[facility]ORATORYCLIA [id number] [place] [address] [place] Hemoglobin (Bld) [Mass/Vol] 10.9 g/dL Low 11.5-15.5 [facility] Comment on above: Order Comment: Speci men Type: BLOOD SPECIMENOrdering Facility: [facility] Address: [address] [place] [address] Performed By: #### 5 8410-2 ####[facility] LABORATORYIA [id number] [place] [id number] [place] MCH (RBC) [Entitic mass] 30.5 pg Normal 26.0-34.0 [facility] Comment on above: Order Comment: Speci men Type: BLOOD SPECIMENOrdering Facility: [facility] Address: [address] [address] Performed By: #### 5 8410-2 ####[facility] LABORATORYIA [id number] [place] [address] [place] MCHC (RBC) [Mass/Vol] 32.4 g/dL Normal 30.5-36.0 [facility] Comment on above: Order Comment: Speci men Type: BLOOD SPECIMENOrdering Facility: [facility] Address: [address] [address] Performed By: #### 5 8410-2 ####[facility] [id number] [place] [address] [place] MCV (RBC) [Entitic vol] 94.1 fL Normal 80.0-100.0 [facility] Comment on above: Order Comment: Speci men Type: BLOOD SPECIMENOrdering Facility: [facility] Address: [address] [address] Performed By: #### 5 8410-2 ####[facility] [id number] [place] [address] [place] Nucleated RBC (Bld) [#/Vol] 10*3/uL Normal <0.01 [facility] Comment on above: Order Comment: Speci men Type: BLOOD SPECIMENOrdering Facility: [facility] Address: [address] [address] Performed By: #### 5 8410-2 ####[facility] [id number] [place] [address] [place] Platelet mean volume (Bld) [Entitic vol] 11.7 fL Normal 9.0-12.7 [facility] Comment on above: Order Comment: Speci men Type: BLOOD SPECIMENOrdering Facility: [facility] Address: [address] [address] Performed By: #### 5 8410-2 ####[facility]ORATORYCLIA [id number] [facility] [place] [address] [place] [facility] Platelets (Bld) [#/Vol] 160 10*3/uL Normal 150-400 [facility] Comment on above: Order Comment: Speci men Type: BLOOD SPECIMENOrdering Facility: [facility] Address: [address] [place] [address] Performed By: #### 5 8410-2 ####[facility] [id number] [place] [address] [place] RBC (Bld) [#/Vol] 3.57 10*6/uL Low 3.90-5.20 [facility] Comment on above: Order Comment: Speci men Type: BLOOD SPECIMENOrdering Facility: [facility] Address: [address] [place] [address] Performed By: #### 5 8410-2 ####[facility] [id number] [address] [place] [facility] WBC (Bld) [#/Vol] 3.53 10*3/uL Low 3.70-11.00 [facility] Comment on above: Order Comment: Speci men Type: BLOOD SPECIMENOrdering Facility: [facility] Address: [address] [place] [address] Performed By: #### 5 8410-2 ####[facility] [id number] [facility] [id number] [place] CONSULT PROGon 10-27-2022 CONSULT PROG Normal [facility] CONSULT PROG Normal [facility] Comprehensive metabolic 2000 panelon 10-27-2022 Albumin [Mass/Vol] 3.3 g/dL Low 3.9-4.9 [facility] Comment on above: Order Comment: Speci men Type: BLOOD SPECIMENOrdering Facility: [facility] Address: [address] [place] [address] Performed By: #### 2 777-1, 97745-0, ####[facility]ORATORYCLIA [id number] [facility] [place] [address] [place] ALP [Catalytic activity/Vol] 52 U/L Normal 34-123 [facility] Comment on above: Order Comment: Speci men Type: BLOOD SPECIMENOrdering Facility: [facility] Address: [address] [place] [address] Performed By: #### 2 777-1, , ####[facility]ORATORYCLIA [id number] [facility] [place] [address] [place] ALT [Catalytic activity/Vol] 14 U/L Normal 7-38 [facility] Comment on above: Order Comment: Speci men Type: BLOOD SPECIMENOrdering Facility: [facility] Address: [address] [place] [address] Performed By: #### 2 777-1, , ####[facility] [id number] [place] [address] [place] Anion gap [Moles/Vol] 8 mmol/L Low 9-18 [facility] Comment on above: Order Comment: Speci men Type: BLOOD SPECIMENOrdering Facility: [facility] Address: [address] [place] [address] Performed By: #### 2 777-1, , ####[facility]ORATORYCLIA [id number] [facility] [place] [address] [place] AST [Catalytic activity/Vol] 28 U/L Normal 13-35 [facility] Comment on above: Order Comment: Speci men Type: BLOOD SPECIMENOrdering Facility: [facility] Address: [address] [place], [place] [address] Performed By: #### 2 777-1, , ####[facility]ORATORYCLIA [id number] [place] [address] [place] Bilirubin [Mass/Vol] 0.2 mg/dL Normal 0.2-1.3 [facility] Comment on above: Order Comment: Speci men Type: BLOOD SPECIMENOrdering Facility: [facility] Address: [address] [place] [address] Performed By: #### 2 777-1, , ####[facility]ORATORYCLIA [id number] [place] [address] [place] Calcium [Mass/Vol] 8.1 mg/dL Low 8.5-10.2 [facility] Comment on above: Order Comment: Speci men Type: BLOOD SPECIMENOrdering Facility: [facility] Address: [address] [place] [address] Performed By: #### 2 777-1, , ####[facility]ORATORYCLIA [id number] [place] [address] [place] Chloride [Moles/Vol] 110 mmol/L High 97-105 [facility] Comment on above: Order Comment: Speci men Type: BLOOD SPECIMENOrdering Facility: [facility] Address: [address] [place] [address] Performed By: #### 2 777-1, , ####[facility]ORATORYCLIA [id number] [place] [address] [place] CO2 [Moles/Vol] 22 mmol/L Normal 22-30 [facility] ital Comment on above: Order Comment: Speci men Type: BLOOD SPECIMENOrdering Facility: [facility] Address: [address] [place] [address] Performed By: #### 2 777-1, , ####[facility]ORATORYCLIA [id number] [place] [address] [place] Creatinine [Mass/Vol] 0.70 mg/dL Normal 0.58-0.96 [facility] Comment on above: Order Comment: Speci men Type: BLOOD SPECIMENOrdering Facility: [facility] Address: [address] [place], [place] [address] Performed By: #### 2 777-1, 48613-8, 20417-3 ####[facility] [id number] [place] [address] [place] Creatinine and Glomerular filtration rate.predicted panel (S/P/Bld) 117 mL/min/1.73m??? Normal >=60 [facility] Comment on above: Order Comment: Geraldo marrero Type: BLOOD SPECIMENOrdering Facility: [facility] Address: [address] [id number] Result Comment: Jessica mated Glomerular Filtration Rate [...] actual GFR. Performed By: #### 2 777-1, 07285-3, ####[facility]ORATORYIA [id number] [place] [address] [place] Glucose [Mass/Vol] 89 mg/dL Normal 74-99 [facility] Comment on above: Order Comment: Geraldo marrero Type: BLOOD SPECIMENOrdering Facility: [facility] Address: [address] [place], [place] [address] Result Comment: The [place] [employer] (ADA) provides guidance for cutoff [...] Standards of Medical Care in Diabetes 2016, [place] [employer]. Diabetes Care. 2016.39(Suppl 1). Performed By: #### 2 777-1, , ####[facility]ORATORYCLIA [id number] [facility] [place] [address] [place] Potassium [Moles/Vol] 4.1 mmol/L Normal 3.7-5.1 [facility] Comment on above: Order Comment: Speci men Type: BLOOD SPECIMENOrdering Facility: [facility] Address: [address] [place] [address] Performed By: #### 2 777-1, , ####[facility]ITALCLIA [id number] [place] [address] [place] Protein [Mass/Vol] 5.0 g/dL Low 6.3-8.0 [facility] Comment on above: Order Comment: Speci men Type: BLOOD SPECIMENOrdering Facility: [facility] Address: [address] [place] [address] Performed By: #### 2 777-1, , ####[facility] [id number] [place] [address] [place] Sodium [Moles/Vol] 140 mmol/L Normal 136-144 [facility] Comment on above: Order Comment: Speci men Type: BLOOD SPECIMENOrdering Facility: [facility] Address: [address] [place] [address] Performed By: #### 2 777-1, , ####[facility] [id number] [facility] [place] [address] [place] Urea nitrogen [Mass/Vol] 5 mg/dL Low 7-21 [facility] Comment on above: Order Comment: Speci men Type: BLOOD SPECIMENOrdering Facility: [facility] Address: [address] [address] Performed By: #### 2 777-1, , ####[facility]ORATORYCLIA [id number] [facility] [place] [address] [place] Magnesium [facility] 10-27 Magnesium [Mass/Vol] 1.9 mg/dL Normal 1.7-2.3 [facility] Comment on above: Order Comment: Speci men Type: BLOOD SPECIMENOrdering Facility: [facility] Address: [address] [address] Performed By: #### 2 777-1, 17205-2, ####[facility]ORATORYIA [id number] [place] [address] [place] NUTRITIONon 10-27-2022 NUTRITION Normal [facility] Phosphate [facility]-ncon 10-27 Phosphate [Mass/Vol] 3.1 mg/dL Normal 2.7-4.8 [facility] Comment on above: Order Comment: Speci men Type: BLOOD SPECIMENOrdering Facility: [facility] Address: [address] [place] [address] Performed By: #### 2 777-1, , ####[facility] [id number] [place] [address] [place] Upper GI endoscopyon 023 Upper GI endoscopy Normal [facility] CASE MGT INIT ASSESon 2022 CASE MGT INIT [facility] CBC panel Auto (Bld)on 10-26 Erythrocyte distribution width (RBC) [Ratio] 13.2 % Normal 11.5-15.0 [facility] Comment on above: Order Comment: Speci men Type: BLOOD SPECIMENOrdering Facility: [facility] Address: [address] [address] Performed By: #### 5 8410-2 ####[facility] [id number] [facility] [place] [address] [place] Hematocrit (Bld) [Volume fraction] 34.9 % Low 36.0-46.0 [facility] Comment on above: Order Comment: Speci men Type: BLOOD SPECIMENOrdering Facility: [facility] Address: [address] [address] Performed By: #### 5 8410-2 ####[facility] [id number] [place] [address] [place] Hemoglobin (Bld) [Mass/Vol] 11.1 g/dL Low 11.5-15.5 [facility] Comment on above: Order Comment: Speci men Type: BLOOD SPECIMENOrdering Facility: [facility] Address: [address] [address] Performed By: #### 5 8410-2 ####[facility] [id number] [place] [address] [place] MCH (RBC) [Entitic mass] 30.9 pg Normal 26.0-34.0 [facility] Comment on above: Order Comment: Speci men Type: BLOOD SPECIMENOrdering Facility: [facility] Address: [address] [address] Performed By: #### 5 8410-2 ####[facility] [id number] [place] [address] [place] MCHC (RBC) [Mass/Vol] 31.8 g/dL Normal 30.5-36.0 [facility] Comment on above: Order Comment: Speci men Type: BLOOD SPECIMENOrdering Facility: [facility] Address: [address] [address] Performed By: #### 5 8410-2 ####[facility] [id number] [place] [address] [place] MCV (RBC) [Entitic vol] 97.2 fL Normal 80.0-100.0 [facility] Comment on above: Order Comment: Speci men Type: BLOOD SPECIMENOrdering Facility: [facility] Address: [address] [place] [address] Performed By: #### 5 8410-2 ####[facility]ATORYIA [id number] [place] [address] [place] Nucleated RBC (Bld) [#/Vol] 10*3/uL Normal <0.01 [facility] Comment on above: Order Comment: Speci men Type: BLOOD SPECIMENOrdering Facility: [facility] Address: [address] [place] [address] Performed By: #### 5 8410-2 ####[facility]ORATORYCLIA [id number] [place] [address] [place] Platelet mean volume (Bld) [Entitic vol] 11.9 fL Normal 9.0-12.7 [facility] Comment on above: Order Comment: Speci men Type: BLOOD SPECIMENOrdering Facility: [facility] Address: [address] [place] [address] Performed By: #### 5 8410-2 ####[facility] [id number] [place] [address] [place] Platelets (Bld) [#/Vol] 181 10*3/uL Normal 150-400 [facility] Comment on above: Order Comment: Speci men Type: BLOOD SPECIMENOrdering Facility: [facility] Address: [address] [place] [address] Performed By: #### 5 8410-2 ####[facility] [id number] [place] [id number] [place] RBC (Bld) [#/Vol] 3.59 10*6/uL Low 3.90-5.20 [facility] Comment on above: Order Comment: Speci men Type: BLOOD SPECIMENOrdering Facility: [facility] Address: [address] [address] Performed By: #### 5 8410-2 ####[facility]ORATORYIA [id number] [place] [address] [place] WBC (Bld) [#/Vol] 3.44 10*3/uL Low 3.70-11.00 [facility] Comment on above: Order Comment: Speci men Type: BLOOD SPECIMENOrdering Facility: [facility] Address: [address] [place] [address] Performed By: #### 5 8410-2 ####[facility]ATORYCLIA [id number] [place] [address] [place] CONSULTon 10-26-2022 CONSULT Normal [facility] Comprehensive metabolic 2000 panelon 10-26-2022 Albumin [Mass/Vol] 3.3 g/dL Low 3.9-4.9 [facility] Comment on above: Order Comment: Speci men Type: BLOOD SPECIMENOrdering Facility: [facility] Address: [address] Performed By: #### 1 9123-9, 3016-3, 13240-4, 2777-1 ####[facility]ORATORYCLIA [id number] [place] [address] [place] ALP [Catalytic activity/Vol] 52 U/L Normal 34-123 [facility] Comment on above: Order Comment: Speci men Type: BLOOD SPECIMENOrdering Facility: [facility] Address: [address] [place] [address] Performed By: #### 1 9123-9, 3016-3, 67087-5, 2777-1 ####[facility]PITALCLIA [id number] [place] [address] [place] ALT [Catalytic activity/Vol] 15 U/L Normal 7-38 [facility] Comment on above: Order Comment: Speci men Type: BLOOD SPECIMENOrdering Facility: [facility] Address: [address] Performed By: #### 1 9123-9, 3016-3, 31940-8, 2777-1 ####[facility]ORATORYCLIA [id number] [place] [address] [place] Anion gap [Moles/Vol] 9 mmol/L Normal 9-18 [facility] Comment on above: Order Comment: Speci men Type: BLOOD SPECIMENOrdering Facility: [facility] Address: [address] [place] [address] Performed By: #### 1 9123-9, 3016-3, 29498-9, 277- ####[facility]ATORYIA [id number] [place] [address] [place] AST [Catalytic activity/Vol] 30 U/L Normal 13-35 [facility] Comment on above: Order Comment: Speci men Type: BLOOD SPECIMENOrdering Facility: [facility] Address: [address] [place] [address] Performed By: #### 1 9123-9, 6-3, 45264-4, 2776- ####[facility] [id number] [place] [address] [place] Bilirubin [Mass/Vol] 0.4 mg/dL Normal 0.2-1.3 [facility] Comment on above: Order Comment: Speci men Type: BLOOD SPECIMENOrdering Facility: [facility] Address: [address] [place] [address] Performed By: #### 1 9123-9, 3015-3, 82524-1, 2776- ####[facility] [id number] [place] [address] [place] Calcium [Mass/Vol] 8.3 mg/dL Low 8.5-10.2 [facility] Comment on above: Order Comment: Speci men Type: BLOOD SPECIMENOrdering Facility: [facility] Address: [address] [place] [address] Performed By: #### 1 9123-9, 3015-3, 81759-0, 2776- ####[facility] [id number] [place] [address] [place] Chloride [Moles/Vol] 110 mmol/L High 97-105 [facility] Comment on above: Order Comment: Speci men Type: BLOOD SPECIMENOrdering Facility: [facility] Address: [address] [place] [address] Performed By: #### 1 9123-9, 3015-3, 97974-6, 7-1 ####[facility]ORATORYCLIA [id number] [facility] [place] [address] [place] CO2 [Moles/Vol] 20 mmol/L Low 22-30 [facility] ital Comment on above: Order Comment: Speci men Type: BLOOD SPECIMENOrdering Facility: [facility] Address: [address] [place] [address] Performed By: #### 1 9123-9, 6-3, 07423-4, 2776- ####[facility]ORATORYCLIA [id number] [facility] [place] [address] [place] Creatinine [Mass/Vol] 0.73 mg/dL Normal 0.58-0.96 [facility] Comment on above: Order Comment: Speci men Type: BLOOD SPECIMENOrdering Facility: [facility] Address: [address] [place] [address] Performed By: #### 1 9123-9, 6-3, , 2776-02 ####[facility] [id number] [facility] [place] [address] [place] Creatinine and Glomerular filtration rate.predicted panel (S/P/Bld) 112 mL/min/1.73m??? Normal >=60 [facility] Comment on above: Order Comment: Lyssai [facility] Type: BLOOD SPECIMENOrdering Facility: [facility] Address: [address] [place] [address] Result Comment: Jessica mated Glomerular Filtration Rate [...] actual GFR. Performed By: #### 1 9123-9, 6-3, 25868-6, 2776- ####[facility]ORATORYCLIA [id number] [facility] [place] [address] [place] Glucose [Mass/Vol] 83 mg/dL Normal 74-99 [facility] Comment on above: Order Comment: Speci men Type: BLOOD SPECIMENOrdering Facility: [facility] Address: [address] [place] [address] Result Comment: The [place] Diabetes [employer] (ADA) provides guidance for cutoff [...] Standards of Medical Care in Diabetes 2016, [place] [employer]. Diabetes Care. 2016.39(Suppl 1). Performed By: #### 1 9123-9, 3016-3, 14846-3, 2777-1 ####[facility] [id number] [place] [address] [place] Potassium [Moles/Vol] 4.2 mmol/L Normal 3.7-5.1 [facility] Comment on above: Order Comment: Lyssai men Type: BLOOD SPECIMENOrdering Facility: [facility] Address: [address] [place] [address] Performed By: #### 1 9123-9, 3016-3, 99008-5, 2777-1 ####[facility]ORATORYIA [id number] [place] [address] [place] Protein [Mass/Vol] 5.0 g/dL Low 6.3-8.0 [facility] Comment on above: Order Comment: Speci men Type: BLOOD SPECIMENOrdering Facility: [facility] Address: [address] [place] [address] Performed By: #### 1 9123-9, 3016-3, 16679-6, 2777-1 ####[facility]ORATORYIA [id number] [place] [address] [place] Sodium [Moles/Vol] 139 mmol/L Normal 136-144 [facility] Comment on above: Order Comment: Speci men Type: BLOOD SPECIMENOrdering Facility: [facility] Address: [address] [address] Performed By: #### 1 9123-9, 3016-3, 10793-5, 2777-1 ####[facility]ORATORYCLIA [id number] [place] [address] [place] Urea nitrogen [Mass/Vol] 5 mg/dL Low 7-21 [facility] Comment on above: Order Comment: Speci men Type: BLOOD SPECIMENOrdering Facility: [facility] Address: [address] [address] Performed By: #### 1 9123-9, 3016-3, 09194-9, 2777-1 ####[facility]ORATORYCLIA [id number] [place] [address] [place] ED Note-Physicianon 10-27-19 ED Note-Physician Normal [facility] Comment on above: Result Comment: Elec tronically Signed By: Lonnie Rios PA-C\.br\Date and Time Signed: 10/20/22 13:50 EDT\.br\Electronically Co-Signed By: Earnest Jett DO\.br\Date and Time Co-Signed: 10/26/22 07:01 EDT Magnesium SerPl-mCncon 10-26 Magnesium [Mass/Vol] 1.9 mg/dL Normal 1.7-2.3 [facility] Comment on above: Order Comment: Speci men Type: BLOOD SPECIMENOrdering Facility: [facility] Address: [address] [place] [address] Performed By: #### 1 9123-9, 3016-3, 65012-9, 2777-1 ####[facility]ORATORYCLIA [id number] [place] [address] [place] Phosphate SerPl-mCncon 10-26 Phosphate [Mass/Vol] 4.3 mg/dL Normal 2.7-4.8 [facility] Comment on above: Order Comment: Geraldo marrero Type: BLOOD SPECIMENOrdering Facility: [facility] Address: [address] [place] [id number] Performed By: #### 1 9123-9, 3016-3, 37364-0, 2777-1 ####[facility] LABORATORYCLIA [id number] [facility] [id number] [place] TSH SerPl-aCncon 10-26-2022 TSH Qn 0.712 m[IU]/L Normal 0.270-4.200 [facility] Comment on above: Order Comment: Geraldo marrero Type: BLOOD SPECIMENOrdering Facility: [facility] Address: [address] [place] [address] Result Comment: If t he patient is , TSH reference range varies by gestational period:First Trimester (weeks 9-12): 0.180-2.990 mIU/LSecond Trimester: 0.110-3.980 mIU/LThird Trimester: 0.480-4.710 mIU/Lisa Johnson et al. A Practical Approach for the Verifications and Determination of Site- and Trimester-Specific Reference Intervals for Thyroid Function tests in . Thyroid, 2019:29:3:412-420. Claus Graf, et al. 2017 Guidelines of the [place] Thy[employer] Association for the Diagnosis and Management of Thyroid Disease during and the . Thyroid, 2017:27:3:315-389. Performed By: #### 1 9123-9, 3016-3, 95054-9, 7- ####[facility]ORATORYCLIA [id number] [facility] [place] [address] [place] CBC W Auto Differential pane l (Bld)on 10-25-2022 Basophils (Bld) [#/Vol] 0.04 10*3/uL Normal <0.11 [facility] Comment on above: Order Comment: Geraldo marrero Type: BLOOD SPECIMENOrdering Facility: [facility] Address: [address] [place] [id number] Performed By: #### 5 7021-8 ####[facility]ORATORYCLIA [id number] [facility] [place] [place] [address] [place] Basophils/100 WBC (Bld) 1.1 % Normal [facility] Comment on above: Order Comment: Speci men Type: BLOOD SPECIMENOrdering Facility: [facility] Address: [address] [address] Performed By: #### 5 7021-8 ####[facility]ORATORYCLIA [id number] [place] [address] [place] Differential cell count method Nom (Bld) Auto Normal [facility] Comment on above: Order Comment: Speci men Type: BLOOD SPECIMENOrdering Facility: [facility] Address: [address] [address] Performed By: #### 5 7021-8 ####[facility] LABORATORYIA [id number] [place] [address] [place] Eosinophils (Bld) [#/Vol] 0.07 10*3/uL Normal <0.46 [facility] Comment on above: Order Comment: Speci men Type: BLOOD SPECIMENOrdering Facility: [facility] Address: [address] [place] [address] Performed By: #### 5 7021-8 ####[facility]ATORYIA [id number] [place] [address] [place] Eosinophils/100 WBC (Bld) 1.9 % Normal [facility] Comment on above: Order Comment: Speci men Type: BLOOD SPECIMENOrdering Facility: [facility] Address: [address] [address] Performed By: #### 5 7021-8 ####[facility] LABORATORYIA [id number] [place] [address] [place] Erythrocyte distribution width (RBC) [Ratio] 13.0 % Normal 11.5-15.0 [facility] Comment on above: Order Comment: Speci men Type: BLOOD SPECIMENOrdering Facility: [facility] Address: [address] [place], [place] [address] Performed By: #### 5 7021-8 ####[facility]ATORYCLIA [id number] [place] [address] [place] Hematocrit (Bld) [Volume fraction] 39.5 % Normal 36.0-46.0 [facility] Comment on above: Order Comment: Speci men Type: BLOOD SPECIMENOrdering Facility: [facility] Address: [address] [address] Performed By: #### 5 7021-8 ####[facility]ATORYCLIA [id number] [place] [address] [place] Hemoglobin (Bld) [Mass/Vol] 13.1 g/dL Normal 11.5-15.5 [facility] Comment on above: Order Comment: Speci men Type: BLOOD SPECIMENOrdering Facility: [facility] Address: [address] [place] [address] Performed By: #### 5 7021-8 ####[facility]ATORYCLIA [id number] [place] [address] [place] Immature granulocytes (Bld) [#/Vol] 10*3/uL Normal <0.10 [facility] Comment on above: Order Comment: Speci men Type: BLOOD SPECIMENOrdering Facility: [facility] Address: [address] [place] [address] Performed By: #### 5 7021-8 ####[facility]ORATORYCLIA [id number] [facility] [place] [address] [place] Immature granulocytes/100 WBC (Bld) 0.3 % Normal [facility] Comment on above: Order Comment: Speci men Type: BLOOD SPECIMENOrdering Facility: [facility] Address: [address] Performed By: #### 5 7021-8 ####[facility]ATORYCLIA [id number] [place] [address] [place] Lymphocytes (Bld) [#/Vol] 1.11 10*3/uL Normal 1.00-4.00 [facility] Comment on above: Order Comment: Speci men Type: BLOOD SPECIMENOrdering Facility: [facility] Address: [address] [address] Performed By: #### 5 7021-8 ####[facility]ORATORYIA [id number] [address] [place] Lymphocytes/100 WBC (Bld) 29.4 % Normal [facility] Comment on above: Order Comment: Speci men Type: BLOOD SPECIMENOrdering Facility: [facility] Address: [address] [place] [address] Performed By: #### 5 7021-8 ####[facility] [id number] [place] [address] [place] MCH (RBC) [Entitic mass] 30.5 pg Normal 26.0-34.0 [facility] Comment on above: Order Comment: Speci men Type: BLOOD SPECIMENOrdering Facility: [facility] Address: [address] [place] [address] Performed By: #### 5 7021-8 ####[facility] [id number] [address] [place] MCHC (RBC) [Mass/Vol] 33.2 g/dL Normal 30.5-36.0 [facility] Comment on above: Order Comment: Speci men Type: BLOOD SPECIMENOrdering Facility: [facility] Address: [address] [place] [address] Performed By: #### 5 7021-8 ####[facility]ATORYIA [id number] [place] [address] [place] MCV (RBC) [Entitic vol] 92.1 fL Normal 80.0-100.0 [facility] Comment on above: Order Comment: Speci men Type: BLOOD SPECIMENOrdering Facility: [facility] Address: [address] [place] [address] Performed By: #### 5 7021-8 ####[facility]ORATORYCLIA [id number] [place] [address] [place] Monocytes (Bld) [#/Vol] 0.27 10*3/uL Normal <0.87 [facility] Comment on above: Order Comment: Speci men Type: BLOOD SPECIMENOrdering Facility: [facility] Address: [address] [place] [address] Performed By: #### 5 7021-8 ####[facility]ORATORYCLIA [id number] [place] [address] [place] Monocytes/100 WBC (Bld) 7.1 % Normal [facility] Comment on above: Order Comment: Speci men Type: BLOOD SPECIMENOrdering Facility: [facility] Address: [address] [address] Performed By: #### 5 7021-8 ####[facility]ATORYCLIA [id number] [place] [address] [place] Neutrophils (Bld) [#/Vol] 2.28 10*3/uL Normal 1.45-7.50 [facility] Comment on above: Order Comment: Speci men Type: BLOOD SPECIMENOrdering Facility: [facility] Address: [address] [place] [address] Performed By: #### 5 7021-8 ####[facility]ATORYIA [id number] [place] [address] [place] Neutrophils/100 WBC (Bld) 60.2 % Normal [facility] Comment on above: Order Comment: Speci men Type: BLOOD SPECIMENOrdering Facility: [facility] Address: [address] [place] [address] Performed By: #### 5 7021-8 ####[facility]ATORYIA [id number] [place] [address] [place] Nucleated RBC (Bld) [#/Vol] 10*3/uL Normal <0.01 [facility] Comment on above: Order Comment: Speci men Type: BLOOD SPECIMENOrdering Facility: [facility] Address: [address] [place] [address] Performed By: #### 5 7021-8 ####[facility]ATORYIA [id number] [place] [address] [place] Nucleated RBC/100 WBC (Bld) [Ratio] 0.0 /100 WBC Normal [facility] Comment on above: Order Comment: Speci men Type: BLOOD SPECIMENOrdering Facility: [facility] Address: [address] [place] [address] Performed By: #### 5 7021-8 ####[facility] [id number] [place] [address] [place] Platelet mean volume (Bld) [Entitic vol] 11.4 fL Normal 9.0-12.7 [facility] Comment on above: Order Comment: Speci men Type: BLOOD SPECIMENOrdering Facility: [facility] Address: [address] [place] [address] Performed By: #### 5 7021-8 ####[facility] [id number] [place] [address] [place] Platelets (Bld) [#/Vol] 208 10*3/uL Normal 150-400 [facility] Comment on above: Order Comment: Speci men Type: BLOOD SPECIMENOrdering Facility: [facility] Address: [address] [place] [address] Performed By: #### 5 7021-8 ####[facility]ATORYIA [id number] [place] [address] [place] RBC (Bld) [#/Vol] 4.29 10*6/uL Normal 3.90-5.20 [facility] Comment on above: Order Comment: Speci men Type: BLOOD SPECIMENOrdering Facility: [facility] Address: [address] [place] [address] Performed By: #### 5 7021-8 ####[facility]ORATORYIA [id number] [place] [address] [place] WBC (Bld) [#/Vol] 3.78 10*3/uL Normal 3.70-11.00 [facility] Comment on above: Order Comment: Speci men Type: BLOOD SPECIMENOrdering Facility: [facility] Address: [address] [place] [address] Performed By: #### 5 7021-8 ####[facility]ORATORYCLIA [id number] [place] [address] [place] CT ABD/PEL W IVCONon 023 CT ABD/PEL W IVCON Normal [facility] Comprehensive metabolic 2000 panelon 10-25-2022 Albumin [Mass/Vol] 4.2 g/dL Normal 3.9-4.9 [facility] Comment on above: Order Comment: Speci men Type: BLOOD SPECIMENOrdering Facility: [facility] Address: [address] [place] [address] Performed By: #### 1 9123-9, 43703-2, 3040-3 ####[facility]ATORYIA [id number] [place] [address] [place] ALP [Catalytic activity/Vol] 70 U/L Normal 34-123 [facility] Comment on above: Order Comment: Speci men Type: BLOOD SPECIMENOrdering Facility: [facility] Address: [address] [place] [address] Performed By: #### 1 9123-9, 57257-5, 3040-3 ####[facility]ATORYCLIA [id number] [place] [address] [place] ALT [Catalytic activity/Vol] 21 U/L Normal 7-38 [facility] Comment on above: Order Comment: Speci men Type: BLOOD SPECIMENOrdering Facility: [facility] Address: [address] [place] [address] Performed By: #### 1 9123-9, 43253-4, 3040-3 ####[facility]ATORYCLIA [id number] [place] [address] [place] Anion gap [Moles/Vol] 10 mmol/L Normal 9-18 [facility] Comment on above: Order Comment: Speci men Type: BLOOD SPECIMENOrdering Facility: [facility] Address: [address] Performed By: #### 1 9123-9, 03693-7, 3039-3 ####[facility]ATORYCLIA [id number] [place] [address] [place] AST [Catalytic activity/Vol] 38 U/L High 13-35 [facility] Comment on above: Order Comment: Speci men Type: BLOOD SPECIMENOrdering Facility: [facility] Address: [address] Performed By: #### 1 9123-9, 86772-1, 3039-3 ####[facility] [id number] [place] [address] [place] Bilirubin [Mass/Vol] 0.3 mg/dL Normal 0.2-1.3 [facility] Comment on above: Order Comment: Speci men Type: BLOOD SPECIMENOrdering Facility: [facility] Address: [address] Performed By: #### 1 9123-9, 31752-1, 3039-3 ####[facility] [id number] [place] [address] [place] Calcium [Mass/Vol] 8.8 mg/dL Normal 8.5-10.2 [facility] Comment on above: Order Comment: Speci men Type: BLOOD SPECIMENOrdering Facility: [facility] Address: [address] Performed By: #### 1 9123-9, 65293-4, 0-3 ####[facility]ATORYIA [id number] [place] [address] [place] Chloride [Moles/Vol] 106 mmol/L High 97-105 [facility] Comment on above: Order Comment: Speci men Type: BLOOD SPECIMENOrdering Facility: [facility] Address: [address] Performed By: #### 1 9123-9, 62308-1, 3040-3 ####[facility]ATORYCLIA [id number] [place] [address] [place] CO2 [Moles/Vol] 22 mmol/L Normal 22-30 [facility] Comment on above: Order Comment: Speci men Type: BLOOD SPECIMENOrdering Facility: [facility] Address: [address] Performed By: #### 1 9123-9, 00964-3, 0-3 ####[facility] [id number] [place], [place] [address] [address] [place] [facility] Creatinine [Mass/Vol] 0.82 mg/dL Normal 0.58-0.96 [facility] Comment on above: Order Comment: Speci men Type: BLOOD SPECIMENOrdering Facility: [facility] Address: [address] [place] [address] Performed By: #### 1 9123-9, 47199-0, 0-3 ####[facility] [id number] [place], [place] [id number] [place] [address] Creatinine and Glomerular filtration rate.predicted panel (S/P/Bld) 97 mL/min/1.73m??? Normal >=60 [facility] Comment on above: Order Comment: Speci [facility] Type: BLOOD SPECIMENOrdering Facility: [facility] Address: [address] [place] [address] Result Comment: Jessica mated Glomerular Filtration Rate [...] actual GFR. Performed By: #### 1 9123-9, 00878-7, 3040-3 ####[facility]ATORYIA [id number] [place] [address] [place] Glucose [Mass/Vol] 85 mg/dL Normal 74-99 [facility] Comment on above: Order Comment: Speci men Type: BLOOD SPECIMENOrdering Facility: [facility] Address: [address] [place] [address] Result Comment: The [place] [employer] (ADA) provides guidance for cutoff [...] Standards of Medical Care in Diabetes 2016, [place] [employer]. Diabetes Care. 2016.39(Suppl 1). Performed By: #### 1 9123-9, 49252-8, 3040-3 ####[facility]ORATORYCLIA [id number] [place] [address] [place] Potassium [Moles/Vol] 3.8 mmol/L Normal 3.7-5.1 [facility] Comment on above: Order Comment: Lyssai men Type: BLOOD SPECIMENOrdering Facility: [facility] Address: [address] [place], [place] [address] Performed By: #### 1 9123-9, 07305-3, 3040-3 ####[facility]ATORYCLIA [id number] [place] [address] [place] Protein [Mass/Vol] 6.5 g/dL Normal 6.3-8.0 [facility] Comment on above: Order Comment: Speci men Type: BLOOD SPECIMENOrdering Facility: [facility] Address: [address] [place] [address] Performed By: #### 1 9123-9, 21511-7, 3040-3 ####[facility]ATORYCLIA [id number] [place] [address] [place] Sodium [Moles/Vol] 138 mmol/L Normal 136-144 [facility] Comment on above: Order Comment: Speci men Type: BLOOD SPECIMENOrdering Facility: [facility] Address: [address] [place] [id number] Performed By: #### 1 9123-9, 19577-9, 3040-3 ####[facility]ATORYCLIA [id number] [place] [address] [place] [facility] Urea nitrogen [Mass/Vol] 7 mg/dL Normal 7-21 [facility] Comment on above: Order Comment: Speci men Type: BLOOD SPECIMENOrdering Facility: [facility] Address: [address] [place] [address] Performed By: #### 1 9123-9, 66474-1, 3040-3 ####[facility]ORATORYIA [id number] [place] [address] [place] D dimer FEU PPP-mCncon 10-25 Fibrin D-dimer FEU (PPP) [Mass/Vol] <190 Normal <500 [facility] Comment on above: Order Comment: Speci men Type: BLOOD SPECIMENOrdering Facility: [facility] Address: [address] [place] [address] Performed By: #### 4 8065-7 ####[facility]ATORYCLIA [id number] [place] [address] [place] ECG COMPLETEon 10-25-2022 ECG COMPLETE Normal [facility] ED NOTEon 10-25-2022 ED NOTE HNO ID: [id number] Author: Anam Myers, DEE Service: ? Author Type: Registered Nurse Type: ED Notes Filed: 10/25/2022 8:19 AM Note Text: Pt unable to urinate sat this time. Aware urine sample is needed. Normal [facility] ED NOTE Normal [facility] ED PROV NOTEon 10-25-2022 ED PROV NOTE Normal [facility] HISTORY PHYSICALon HISTORY PHYSICAL Normal [facility] Lipase SerPl-cCncon 10-26-19 23 Lipase [Catalytic activity/Vol] 29 U/L Normal 16-61 [facility] Comment on above: Order Comment: Speci men Type: BLOOD SPECIMENOrdering Facility: [facility] Address: [address] [place] [address] Performed By: #### 1 9123-9, 33764-5, 3040-3 ####[facility]ATORYIA [id number] [place] [address] [facility] Magnesium SerPl-mCncon 10-25 Magnesium [Mass/Vol] 1.9 mg/dL Normal 1.7-2.3 [facility] Comment on above: Order Comment: Speci men Type: BLOOD SPECIMENOrdering Facility: [facility] Address: [address] [place] [address] Performed By: #### 1 9123-9, 81474-1, 3040-3 ####[facility]ATORYIA [id number] [place] [address] [place] NURSING PROGon 10-25-2022 NURSING PROG [facility] Urinal[facility] complete panel (U )on 10-25-2022 Bilirubin Ql (U) Negative Normal Negative [facility] Comment on above: Order Comment: Speci men Type: URINE SPECIMENOrdering Facility: [facility] Address: [address] [place] [address] Performed By: #### 2 4356-8 ####[facility]ORATORYIA [id number] [place] [address] [place] Clarity (Unsp spec) Clear Normal Clear [facility] Comment on above: Order Comment: Speci men Type: URINE SPECIMENOrdering Facility: [facility] Address: [address] [place] [address] Performed By: #### 2 4356-8 ####[facility]ATORYIA [id number] [place] [address] [place] Color (U) Colorless Normal yellow [facility] Comment on above: Order Comment: Speci men Type: URINE SPECIMENOrdering Facility: [facility] Address: [address] [place] [address] Performed By: #### 2 4356-8 ####[facility] [id number] [place] [address] [place] Epithelial cells LM.HPF (Urine sed) [#/Area] Few Normal [facility] Comment on above: Order Comment: Speci men Type: URINE SPECIMENOrdering Facility: [facility] Address: [address] [place] [address] Performed By: #### 2 4356-8 ####[facility] [id number] [place] [address] [place] Glucose Test strip (U) [Mass/Vol] Negative Normal Trace, Negative [facility] Comment on above: Order Comment: Speci men Type: URINE SPECIMENOrdering Facility: [facility] Address: [address] [place] [address] Performed By: #### 2 4356-8 ####[facility] [id number] [place] [address] [place] Hemoglobin Ql (U) Negative Normal Negative, Trace [facility] Comment on above: Order Comment: Speci men Type: URINE SPECIMENOrdering Facility: [facility] Address: [address] [place] [address] Performed By: #### 2 4356-8 ####[facility] [id number] [place] [address] [place] Ketones Ql (U) Negative Normal Negative, Trace [facility] Comment on above: Order Comment: Speci men Type: URINE SPECIMENOrdering Facility: [facility] Address: [address] [place] [address] Performed By: #### 2 4356-8 ####[facility] [id number] [place] [address] [place] Leukocyte esterase Test strip Ql (U) Negative Normal Negative, 25 Patito/uL [facility] Comment on above: Order Comment: Speci men Type: URINE SPECIMENOrdering Facility: [facility] Address: [address] [place] [address] Performed By: #### 2 4356-8 ####[facility] [id number] [place] [address] [place] Nitrite Ql (U) Negative Normal Negative [facility] Comment on above: Order Comment: Speci men Type: URINE SPECIMENOrdering Facility: [facility] Address: [address] [place] [address] Performed By: #### 2 4356-8 ####[facility] [id number] [place] [address] [place] pH (U) 6.5 [pH] Normal 5.0-8.0 [facility] Comment on above: Order Comment: Speci men Type: URINE SPECIMENOrdering Facility: [facility] Address: [address] [place] [address] Performed By: #### 2 4356-8 ####[facility] [id number] [place] [address] [place] Protein (U) [Mass/Vol] Negative Normal Trace, Negative [facility] Comment on above: Order Comment: Speci men Type: URINE SPECIMENOrdering Facility: [facility] Address: [address] [place] [address] Performed By: #### 2 4356-8 ####[facility] [id number] [place] [address] [place] RBC LM.HPF (Urine sed) [#/Area] 0-3 /HPF Normal 0-3 /HPF [facility] Comment on above: Order Comment: Speci men Type: URINE SPECIMENOrdering Facility: [facility] Address: [address] [place] [address] Performed By: #### 2 4356-8 ####[facility] [id number] [place] [id number] [place] Specific gravity (U) [Rel density] 1.041 High 1.005-1.030 [facility] Comment on above: Order Comment: Speci men Type: URINE SPECIMENOrdering Facility: [facility] Address: [address] [place] [address] Performed By: #### 2 4356-8 ####[facility]ORATORYCLIA [id number] [place], [place] [address] [place] [address] [place] Urobilinogen Ql (U) Normal Normal Negative [facility] Comment on above: Order Comment: Speci men Type: URINE SPECIMENOrdering Facility: [facility] Address: [address] [place] [address] Performed By: #### 2 4356-8 ####[facility] [id number] [address] [place] WBC LM.HPF (Urine sed) [#/Area] 0-5 /HPF Normal 0-5 /HPF [facility] Comment on above: Order Comment: Speci men Type: URINE SPECIMENOrdering Facility: [facility] Address: [address] [place] [address] Performed By: #### 2 4356-8 ####[facility] [id number] [address] [place] XR ABDOMEN (2 VIEWS)on [...] Kuldip Laughlin MD 10/23/22 Final result Normal [facility] CBC with Diffon 10-23-2022 Abs. Basophil 0.03 k/uL Normal 0.00-0.20 [facility] Comment on above: Performed By: #### L IP, CP, CDP #### [address] [place], [place] [address] Emergency Medical Dispatcher: Baldomero Espinoza MD Abs.Imm.Granulocyte <0.03 Normal 0.00-0.30 [facility] Comment on above: Performed By: #### L IP, CP, CDP #### [address] [place] [address] Emergency Medical Dispatcher: Baldomero Espinoza MD Abs.Neutrophil (Seg) 3.51 k/uL Normal 1.50-8.10 [facility] Comment on above: Performed By: #### L IP, CP, CDP #### [address] [place] [address] Emergency Medical Dispatcher: Baldomero Espinoza MD Basophils/100 WBC (Bld) 1 % Normal 0-2 [facility] Comment on above: Performed By: #### L IP, CP, CDP #### [address] [place] [address] Emergency Medical Dispatcher: Baldomero Espinoza MD Eosinophils (Bld) [#/Vol] 0.07 10*3/uL Normal 0.00-0.44 [facility] Comment on above: Performed By: #### L IP, CP, CDP #### [address] [place], [place] [address] Emergency Medical Dispatcher: Baldomero Espinoza MD Eosinophils/100 WBC (Bld) 1 % Normal 1-4 [facility] Comment on above: Performed By: #### L IP, CP, CDP #### [address] [place] [id number] Emergency Medical Dispatcher: Baldomero Espinoza MD Erythrocyte distribution width (RBC) [Ratio] 12.7 % Normal 11.8-14.4 [facility] Comment on above: Performed By: #### L IP, CP, CDP #### [facility] [address] [place], [place] [address]83 Emergency Medical Dispatcher: Baldomero Espinoza MD Hematocrit (Bld) [Volume fraction] 36.0 % Low 36.3-47.1 [facility] Comment on above: Performed By: #### L IP, CP, CDP #### [address] [place], [facility]83 Emergency Medical Dispatcher: Baldomero Espinoza MD Hemoglobin (Bld) [Mass/Vol] 12.2 g/dL Normal 11.9-15.1 [facility] Comment on above: Performed By: #### L IP, CP, CDP #### [address] [place], [facility]83 Emergency Medical Dispatcher: Baldomero Espinoza MD Immature granulocytes/100 WBC (Bld) 0 % Normal 0 [facility] Comment on above: Performed By: #### L IP, CP, CDP #### [address] [place], [facility]83 Emergency Medical Dispatcher: Baldomero Espinoza MD Lymphocytes (Bld) [#/Vol] 2.05 10*3/uL Normal 1.10-3.70 [facility] Comment on above: Performed By: #### L IP, CP, CDP #### [address] [place], [facility]83 Emergency Medical Dispatcher: Baldomero Espinoza MD Lymphocytes/100 WBC (Bld) 34 % Normal 24-43 [facility] Comment on above: Performed By: #### L IP, CP, CDP #### [address] [place], [facility]83 Emergency Medical Dispatcher: Baldomero Espinoza MD MCH (RBC) [Entitic mass] 30.8 pg Normal 25.2-33.5 [facility] Comment on above: Performed By: #### L IP, CP, CDP #### [address] [place], [facility]83 Emergency Medical Dispatcher: Baldomero Espinoza MD MCHC (RBC) [Mass/Vol] 33.9 g/dL Normal 28.4-34.8 [facility] Comment on above: Performed By: #### L IP, CP, CDP #### [facility] [address] [place] [address] [place] [address] Emergency Medical Dispatcher: Baldomero Espinoza MD MCV (RBC) [Entitic vol] 90.9 fL Normal 82.6-102.9 [facility] Comment on above: Performed By: #### L IP, CP, CDP #### [address] [place], [facility]83 Emergency Medical Dispatcher: Baldomero Espinoza MD Monocytes (Bld) [#/Vol] 0.44 10*3/uL Normal 0.10-1.20 [facility] Comment on above: Performed By: #### L IP, CP, CDP #### [address] [place], [facility]83 Emergency Medical Dispatcher: Baldomero Espinoza MD Monocytes/100 WBC (Bld) 7 % Normal 3-12 [facility] Comment on above: Performed By: #### L IP, CP, CDP #### [address] [place], [facility]83 Emergency Medical Dispatcher: Baldomero Espinoza MD Neutrophil (Seg) 57 % Normal 36-65 [facility] Comment on above: Performed By: #### L IP, CP, CDP #### [facility] [address] [place] [address] [address] [place], [place] 6136583 Emergency Medical Dispatcher: Baldomero Espinoza MD NRBC Automated 0.0 per 100 WBC Normal 0.0 [facility] Comment on above: Performed By: #### L IP, CP, CDP #### [facility] [address] [place], [place] [id number] Emergency Medical Dispatcher: Baldomero Espinoza MD Platelet mean volume (Bld) [Entitic vol] 11.1 fL Normal 8.1-13.5 [facility] Comment on above: Performed By: #### L IP, CP, CDP #### [facility] [address] [place], [place] [id number] Emergency Medical Dispatcher: Baldomero Espinoza MD Platelets (Bld) [#/Vol] 226 10*3/uL Normal 138-453 [facility] Comment on above: Performed By: #### L IP, CP, CDP #### [facility] [address] [place], [place] [address]99 ([address] Emergency Medical Dispatcher: Baldomero Espinoza MD RBC (Bld) [#/Vol] 3.96 10*6/uL Normal 3.95-5.11 [facility] Comment on above: Performed By: #### L IP, CP, CDP #### [facility] [address] [place] [address] Emergency Medical Dispatcher: Baldomero Espinoza MD WBC (Bld) [#/Vol] 6.1 10*3/uL Normal 3.5-11.3 [facility] Comment on above: Performed By: #### L IP, CP, CDP #### [facility] [address] [place], [place] [id number] Emergency Medical Dispatcher: Baldomero Espinoza MD CNPNon 10-23-2022 CNPN Normal [facility] Comp Metabolic Profon 2022 Albumin [Mass/Vol] 4.1 g/dL Normal 3.5-5.2 [facility] Comment on above: Performed By: #### L IP, CP, CDP #### [facility] [address] [place] [address] Emergency Medical Dispatcher: Baldomero Espinoza MD Albumin/Glob Ratio 1.7 Normal 1.0-2.5 [facility] Comment on above: Performed By: #### L IP, CP, CDP #### [facility] [address] [place], [place] 6067583 Emergency Medical Dispatcher: Baldomero Espinoza MD Alkaline Phos 64 U/L Normal 35-104 [facility] Comment on above: Performed By: #### L IP, CP, CDP #### [facility] [address] [place], [place] [id number] Emergency Medical Dispatcher: Baldomero Espinoza MD ALT [Catalytic activity/Vol] 19 U/L Normal 5-33 [facility] Comment on above: Performed By: #### L IP, CP, CDP #### [facility] [address] [place], [place] 0180983 Emergency Medical Dispatcher: Baldomero Espinoza MD Anion gap [Moles/Vol] 11 mmol/L Normal 9-17 [facility] Comment on above: Performed By: #### L IP, CP, CDP #### [facility] [address] [place], [place] 5457383 Emergency Medical Dispatcher: Baldomero Espinoza MD AST [Catalytic activity/Vol] 33 U/L High <32 [facility] Comment on above: Performed By: #### L IP, CP, CDP #### [facility] [address] [place], [place] 7506883 Emergency Medical Dispatcher: Baldomero Espinoza MD Bilirubin [Mass/Vol] 0.5 mg/dL Normal 0.3-1.2 [facility] Comment on above: Performed By: #### L IP, CP, CDP #### [facility] [address] [place], [place] 9087783 Emergency Medical Dispatcher: Baldomero Espinoza MD BUN/CRE Ratio 14 Normal 9-20 [facility] Comment on above: Performed By: #### L IP, CP, CDP #### [facility] [address] [place], [place] 4281583 Emergency Medical Dispatcher: Baldomero Espinoza MD Calcium [Mass/Vol] 9.0 mg/dL Normal 8.6-10.4 [facility] Comment on above: Performed By: #### L IP, CP, CDP #### [facility] [address] [place], [place] 1489183 Emergency Medical Dispatcher: Baldomero Espinoza MD Chloride [Moles/Vol] 103 mmol/L Normal 98-107 [facility] Comment on above: Performed By: #### L IP, CP, CDP #### [facility] [address] [place], [place] 8217183 Emergency Medical Dispatcher: Baldomero Espinoza MD CO2 [Moles/Vol] 22 mmol/L Normal 20-31 [facility] Comment on above: Performed By: #### L IP, CP, CDP #### [facility] [address] [place], [place] 4382983 Emergency Medical Dispatcher: Baldomero Espinoza MD Creatinine [Mass/Vol] 0.7 mg/dL Normal 0.5-0.9 [facility] Comment on above: Performed By: #### L IP CP, CDP #### [facility] [address] [place] [address] Emergency Medical Dispatcher: Baldomero Espinoza MD GFR/1.73 sq M.predicted among non-blacks MDRD (S/P/Bld) [Vol rate/Area] mL/min/{1.73_m2} Normal >60 [facility] Comment on above: Result Comment: These [...] By: #### L IP, CP, CDP #### [facility] [address] [place] [address] Emergency Medical Dispatcher: Baldomero Espinoza MD Glucose [Mass/Vol] 86 mg/dL Normal 70-99 [facility] Comment on above: Performed By: #### L IP, CP, CDP #### [facility] [address] [place] [address] Emergency Medical Dispatcher: Baldomero Espinoza MD Potassium [Moles/Vol] 3.4 mmol/L Low 3.7-5.3 [facility] Comment on above: Performed By: #### L IP, CP, CDP #### [facility] [address] [place], [place] 7900483 Emergency Medical Dispatcher: Baldomero Espinoza MD Protein [Mass/Vol] 6.5 g/dL Normal 6.4-8.3 [facility] Comment on above: Performed By: #### L IP, CP, CDP #### [facility] [address] [place], [place] 7951783 Emergency Medical Dispatcher: Baldomero Espinoza MD Sodium [Moles/Vol] 136 mmol/L Normal 135-144 [facility] Comment on above: Performed By: #### L IP, CP, CDP #### [facility] [address] [place], [place] 8604683 Emergency Medical Dispatcher: Baldomero Espinoza MD Urea nitrogen [Mass/Vol] 10 mg/dL Normal 6-20 [facility] Comment on above: Performed By: #### L IP, CP, CDP #### [facility] [address] [place] [address] Emergency Medical Dispatcher: Baldomero Espinoza MD HCG, ,Urineon 10-23 Beta HCG ( test) Ql (U) Negative Normal NEG [facility] Comment on above: Result Comment: Spec imens with hCG levels near the threshold of the test (25 mIU/mL) may give a negative or indeterminate result. In such cases, another test should be performed with a new specimen in 48-72 hours. If early is suspected clinically in this setting, correlation with quantitative serum b-hCG level is suggested. [employer] has confirmed the use of plasma for this test. This has not been cleared or approved by the U.S. Food and Drug Administration. The FDA has determined that such clearance is not necessary. Performed By: #### U HCG, UAMIC #### [facility] [address] [place], [place] 3043383 Emergency Medical Dispatcher: Baldomero Espinoza MD Lactic Acidon 10-23-2022 Lactate [Moles/Vol] 0.8 mmol/L Normal 0.5-2.2 [facility] Comment on above: Performed By: #### L ACTIC #### [facility] [address] [place], [place] 4060083 Emergency Medical Dispatcher: Baldomero Espinoza MD Lipaseon 0 Lipase [Catalytic activity/Vol] 32 U/L Normal 13-60 [facility] Comment on above: Performed By: #### L IP, CP, CDP #### [facility] [address] [place], [place] 1376483 Emergency Medical Dispatcher: Baldomero Espinoza MD Urinalysis w/ Microon 2022 Bacteria 1+ Abnormal NONE [facility] Comment on above: Performed By: #### U HCG, UAMIC ####[address] , [place] 6[address]83 [facility] Director: Baldomero Espinoza MD Bilirubin, SemiQt,Ur Negative Normal NEG [facility] Comment on above: Performed By: #### U HCG, UAMIC ####[facility] , [place] 1912[address] Lab Director: Baldomero Espinoza MD Blood, Urine Negative Normal NEG [facility] Comment on above: Performed By: #### U HCG, UAMIC ####[address] [place] [address] Lab Director: Baldomero Espinoza MD Clarity (U) Clear Normal CLEAR [facility] Comment on above: Performed By: #### U HCG, UAMIC ####[facility] [place], [place] [address] Lab Director: Baldomero Espinoza MD Color (U) Yellow Normal YEL [facility] Comment on above: Performed By: #### U HCG, UAMIC ####[facility] [place] [address] lab Director: Baldomero Espinoza MD Epithelial cells LM Ql (Urine sed) 2 TO 5 Normal 0-25 [facility] Comment on above: Performed By: #### U HCG, UAMIC ####[facility] [place] [address] lab Director: Baldomero Espinoza MD Glucose Ql (U) Negative Normal NEG [facility] Comment on above: Performed By: #### U HCG, UAMIC ####[address] [place] [address] Lab Director: Baldomero Espinoza MD Ketones Ql (U) Negative Normal NEG [facility] Comment on above: Performed By: #### U HCG, UAMIC ####[address] [place] [address] lab Director: Baldomero Espinoza MD Leukocyte esterase Test strip Ql (U) Negative Normal NEG [facility] Comment on above: Performed By: #### U HCG, UAMIC ####[address] , [facility]83 Lab Director: Baldomero Espinoza MD Mucus Strands TRACE Abnormal NONE [facility] Comment on above: Performed By: #### U HCG, UAMIC ####[address] [place] [address] lab Director: Baldomero Espinoza MD Nitrite,Ur Negative Normal NEG [facility] Comment on above: Performed By: #### U HCG, UAMIC ####[facility] [place] [address] Lab Director: Baldomero Espinoza MD PH,Ur 6.5 Normal 5.0-9.0 [facility] Comment on above: Performed By: #### U HCG, UAMIC ####[address] , [place] [address]83 Lab Director: Baldomero Espinoza MD Protein Ql (U) Negative Normal NEG [facility] Comment on above: Performed By: #### U HCG, UAMIC ####[address] , [facility]83 lab Director: Baldomero Espinoza MD Spec. [place],Ur 1.010 Normal 1.010-1.020 [facility] Comment on above: Performed By: #### U HCG, UAMIC ####[address] [place] [address] lab Director: Baldomero Espinoza MD Urine RBC's 0 TO 2 Normal 0-2 [facility] Comment on above: Performed By: #### U HCG, UAMIC ####[address] [place] [address] Lab Director: Baldomero Espinoza MD Urine WBC's 0 TO 2 Normal 0-5 [facility] Comment on above: Performed By: #### U HCG, UAMIC ####[address] [place] [address] Lab Director: Baldomero Espinoza MD Urobilinogen,Ur Normal Normal 0.0-1.0 [facility] Comment on above: Performed By: #### U HCG, UAMIC ####[address] [place] [address] Lab Director: Baldomero Espinoza MD Auto Diffon 10-20-2022 Basophils/100 WBC (Bld) 1.0 % Normal 0.0-2.0 [facility] Comment on above: Order Comment: Order Added by Discern Expert. Performed By: #### 2 993055, 9173838, 3674384, 17977243, 2927483 ####[place] [address] [place] [address] Basophils/Leukocyte s Auto (Bld) [Pure # fraction] 0.0 E9/L Normal 0.0-0.2 [facility] Comment on above: Order Comment: Order Added by Discern Expert. Performed By: #### 2 255007, 5740638, 7043817, 12256546, 7863934 ####[place] [address] [place] [address] Eosinophils/100 WBC (Bld) 2.2 % Normal 0.0-8.0 [facility] Comment on above: Order Comment: Order Added by Discern Expert. Performed By: #### 2 079650, 4742981, 1065970, 99914264, 7263679 ####[address] [address] Eosinophils/Leukocy stevan Auto (Bld) [Pure # fraction] 0.1 E9/L Normal 0.0-0.5 [facility] Comment on above: Order Comment: Order Added by Discern Expert. Performed By: #### 2 986687, 4469703, 8967352, 36781871, 0426001 ####[address] [address] Lymphocytes/100 WBC (Bld) 35.9 % Normal 14.0-50.0 [facility] Comment on above: Order Comment: Order Added by Discern Expert. Performed By: #### 2 441247, 5394836, 0319782, 47155831, 3074130 ####[address] [address] Lymphocytes/Leukocy stevan Auto (Bld) [Pure # fraction] 1.6 E9/L Normal 1.0-4.0 [facility] Comment on above: Order Comment: Order Added by Discern Expert. Performed By: #### 2 502436, 7664625, 6827978, 71491615, 1470696 ####[address] [address] Monocytes/100 WBC (Bld) 5.9 % Normal 4.0-14.0 [facility] Comment on above: Order Comment: Order Added by Discern Expert. Performed By: #### 2 349503, 2959534, 1430949, 99620937, 7646925 ####[facility] [address] [place] [address] Monocytes/Leukocyte s Auto (Bld) [Pure # fraction] 0.3 E9/L Normal 0.2-1.0 [facility] Comment on above: Order Comment: Order Added by Discern Expert. Performed By: #### 2 933436, 0274183, 9820817, 46304183, 0281235 ####[place] [address] [place] [address] Neutrophils/100 WBC (Bld) 55.0 % Normal 36.0-75.0 [facility] Comment on above: Order Comment: Order Added by Discern Expert. Performed By: #### 2 279443, 5280540, 9619110, 42871648, 7348254 ####[place] [address] [place] [address] Neutrophils/Leukocy stevan Auto (Bld) [Pure # fraction] 2.5 E9/L Normal 2.0-7.5 [facility] Comment on above: Order Comment: Order Added by Discern Expert. Performed By: #### 2 159712, 5564076, 9681740, 88902225, 9474360 ####[place] [address] [place] [address] CBC w/ Auto Diffon 3 Erythrocyte distribution width (RBC) [Ratio] 14.0 % Normal 10.9-14.2 [facility] Comment on above: Performed By: #### 2 913021, 1146193, 1138497, 52678830, 7049723 ####[place] [address] [place] [address] Hematocrit (Bld) [Volume fraction] 40.1 % Normal 34.0-46.0 [facility] Comment on above: Performed By: #### 2 295480, 1284533, 9348442, 56408290, 8559235 ####[facility] [address] [place] [address] Hemoglobin (Bld) [Mass/Vol] 13.7 g/dL Normal 12.0-16.0 [facility] Comment on above: Performed By: #### 2 321892, 1049706, 4847101, 82028656, 0960605 ####[address] [address] MCH (RBC) [Entitic mass] 30.7 pg Normal 27.0-34.0 [facility] Comment on above: Performed By: #### 2 479341, 3686425, 2616475, 54786306, 5928264 ####[address] [address] MCHC (RBC) [Mass/Vol] 34.2 g/dL Normal 31.4-36.0 [facility] Comment on above: Performed By: #### 2 269940, 0886850, 8463737, 50011643, 6527234 ####[address] [address] MCV (RBC) [Entitic vol] 89.9 fL Normal 80.0-100.0 [facility] Comment on above: Performed By: #### 2 622120, 6288819, 7954154, 94564627, 4436094 ####[address] [address] Platelet mean volume (Bld) [Entitic vol] 9.7 fL Normal 6.4-10.8 [facility] Comment on above: Performed By: #### 2 014042, 8212861, 1726101, 45931014, 5076472 ####[address] [address] Platelets (Bld) [#/Vol] 258.0 E9/L Normal 150.0-500.0 [facility] Comment on above: Performed By: #### 2 910875, 0310983, 8359627, 11646004, 6739669 ####[facility] [address] [place] [address] RBC (Bld) [#/Vol] 4.5 E12/L Normal 4.3-5.9 [facility] Comment on above: Performed By: #### 2 052083, 8814748, 5428053, 65909119, 8554873 ####[facility] [address] [place] [address] WBC corrected for nucl RBC Auto (Bld) [#/Vol] 4.5 E9/L Normal 4.0-11.0 [facility] Comment on above: Performed By: #### 2 207588, 1284527, 1784260, 05353355, 0528615 ####[facility] [address] [place] [address] CHEMISTRYOrdered By: SYSTEM SYSTEM on 10-20-2022 Albumin [...] rate/Area] 87 mL/min/1.73 m2 Normal >=59mL/min/1.73 m2 [facility] Chem S Lipase [Catalytic activity/Vol] 35 U/L Normal 13 - 58 unit/L [facility] Remisol Potassium [Moles/Vol] 3.8 mmol/L Normal 3.5 - 5.3 mmol/L [facility] Remisol Protein [Mass/Vol] 7.2 g/dL Normal 6.0 - 7.8 gm/dL [facility] Remisol Sodium [Moles/Vol] 139 mmol/L Normal 135 - 145 mmol/L [facility] Remisol Urea nitrogen [Mass/Vol] 11 mg/dL Normal 5 - 21 mg/dL [facility] Remisol CHEMISTRYOrdered By: Praanv Meng on 10-20-2022 Albumin/Globulin [Mass ratio] 1.4 {ratio} Normal 1.1 - 2.2 [facility] Chem S Anion gap [Moles/Vol] 11 mmol/L Normal 6 - 16 mEq/L [facility] Chem S Globulin (S) [Mass/Vol] 3.0 g/dL Normal 1.4 - 4.0 gm/dL [facility] Chem S Glucose [Mass/Vol] 86 mg/dL Normal 55 - 199 mg/dL [facility] Chem S Urea nitrogen/Creatinine [Mass ratio] 12 mg/mg Normal 10 - 20 [facility] Chem S CMPon 10-20-2022 Albumin/Globulin (S) [Mass conc ratio] 1.4 Normal 1.1-2.2 [facility] Comment on above: Performed By: #### 2 893046, 4226607, 8446022, 13456125, 3887072 ####[facility] [address] [place] [address] Anion gap [Moles/Vol] 11 mmol/L Normal 6-16 [facility] Comment on above: Performed By: #### 2 035534, 6794197, 2269933, 24133689, 7197045 ####[facility] [address] [place] [address] Globulin (S) [Mass/Vol] 3.0 g/dL Normal 1.4-4.0 [facility] Comment on above: Performed By: #### 2 551300, 3447202, 6317063, 20628851, 6594977 ####[facility] [address] [place] [address] Glucose [Mass/Vol] 86 mg/dL Normal 55-199 [facility] Comment on above: Result Comment: If t his glucose result represents a fasting glucose, interpretation should refer to the following reference range: 55-99 mg/dL Performed By: #### 2 954440, 1621444, 4062134, 34274295, 5184555 ####[facility] [address] [place] [address] Urea nitrogen/Creatinine [Mass ratio] 12 No Units Normal 10-20 [facility] Comment on above: Performed By: #### 2 295160, 6380855, 5940679, 34646650, 7121524 ####[facility] [address] [place] [address] Albumin [Mass/Vol] 4.2 g/dL Normal 3.3-5.0 [facility] Comment on above: Performed By: #### 2 081575, 2617368, 5099300, 88777866, 1203980 ####[facility] [address] [place] [address] ALP [Catalytic activity/Vol] 55 Int._Unit/L Normal 21-98 [facility] Comment on above: Performed By: #### 2 369439, 5370839, 9210334, 01611367, 5393691 ####[facility] [address] [place] [address] ALT No additional P-5'-P [Catalytic activity/Vol] 27 Int._Unit/L Normal 6-46 [facility] Comment on above: Performed By: #### 2 724996, 7267500, 7060277, 08665175, 4186290 ####[facility] [address] [place] [address] AST [Catalytic activity/Vol] 42 Int._Unit/L Normal 5-43 [facility] Comment on above: Performed By: #### 2 769227, 4147907, 2477586, 99594834, 2371709 ####[facility] [address] [place] [address] Bilirubin [Mass/Vol] 0.4 mg/dL Normal 0.0-1.1 [facility] Comment on above: Performed By: #### 2 369522, 4488507, 7521915, 95284748, 2783525 ####[facility] [address] [place] [address] Calcium [Mass/Vol] 9.0 mg/dL Normal 8.9-11.1 [facility] Comment on above: Performed By: #### 2 744507, 4162700, 8066050, 73187100, 0273261 ####[facility] [address] [place] [address] Chloride [Moles/Vol] 108 mmol/L Normal 101-111 [facility] Comment on above: Performed By: #### 2 718495, 3438479, 9063240, 70974119, 6182706 ####[facility] [address] [place] [address] CO2 [Moles/Vol] 24 mmol/L Normal 21-31 [facility] Comment on above: Performed By: #### 2 894137, 2047708, 7313031, 53426097, 9704676 ####[facility] [address] [place] [address] Creatinine [Mass/Vol] 0.9 mg/dL Normal 0.5-1.3 [facility] Comment on above: Performed By: #### 2 832944, 3282861, 8658461, 68923594, 1054908 ####[facility] [address] [place] [address] Potassium [Moles/Vol] 3.8 mmol/L Normal 3.5-5.3 [facility] Comment on above: Performed By: #### 2 287635, 7128300, 8495444, 00757308, 6165365 ####[facility] [address] [place] [address] Protein [Mass/Vol] 7.2 g/dL Normal 6.0-7.8 [facility] Comment on above: Performed By: #### 2 168168, 5773084, 9924385, 20627477, 9321014 ####[facility] [address] [place] [address] Sodium [Moles/Vol] 139 mmol/L Normal 135-145 [facility] Comment on above: Performed By: #### 2 221015, 9329089, 5545586, 81359108, 2239071 ####[facility] [address] [place] [address] Urea nitrogen [Mass/Vol] 11 mg/dL Normal 5-21 [facility] Comment on above: Performed By: #### 2 357821, 4559889, 1643648, 71703749, 7912700 ####[facility] [address] [place] [address] CNPNon 10-20-2022 CNPN Normal [facility] CT Abdomen/Pelvis w/o Contra ston 10-20-2022 CT Abdomen/Pelvis w/o Contrast Normal [facility] CT Chest w/o Contraston CT Chest w/o Contrast Normal [facility] Consent for Treatmenton Consent for Treatment [id number] 2D#1.00CD:127 Normal [facility] Discharge Instructionson Discharge Instructions [id number] 178#1.00CD:127 Normal [facility] ED Clinical Summaryon 2022 ED Clinical Summary Normal [facility] ED Patient Education Noteon 10-20-2022 ED Patient Education Note Normal [facility] ED Patient Summaryon 023 ED Patient Summary Normal [facility] HEMATOLOGYOrdered By: SYSTEM SYSTEM on 10-20-2022 [...] - 7.5 E9/L [facility] HEMATOLOGYOrdered By: Aliyah Renteria on 10-20-2022 [...] 9.7 fL Normal 6.4 - 10.8 fL [facility] HemeAutoSS Platelets (Bld) [#/Vol] 258.0 E9/L Normal 150.0 - 500.0 E9/L [facility] RBC (Bld) [#/Vol] 4.5 E12/L Normal 4.3 - 5.9 E12/L [facility] HemeAutoSS WBC corrected for nucl RBC Auto (Bld) [#/Vol] 4.5 E9/L Normal 4.0 - 11.0 E9/L [facility] Heme[facility] Lipase Levelon 10-20-2022 Lipase [Catalytic activity/Vol] 35 U/L Normal 13-58 [facility] Comment on above: Performed By: #### 2 806125, 5638544, 1402534, 72171975, 3545437 ####[facility] [address] [place] [address] Prescriptions/Work Noteson 0 10-20-2022 Prescriptions/Work Notes [id number] 266#1.00CD:127 Normal [facility] Prescriptions/Work Notes [id number] 628#1.00CD:127 Normal [facility] Comment on above: Other Comment: scann ed in error UA With Cult Reflexon 2022 Bilirubin Ql (U) Negative Normal Negative [facility] Comment on above: Performed By: #### 1 5860148 ####[facility] [address] [place] [address] Clarity (U) CLEAR Normal Clear [facility] Comment on above: Performed By: #### 1 1343190 ####[facility] [address] [place] [address] Color (U) YELLOW Normal Yellow [facility] Comment on above: Performed By: #### 1 7054623 ####[facility] [address] [place] [address] Epithelial cells.squamous LM.HPF (Urine sed) [#/Area] 3-4 Normal 0-2 [facility] Comment on above: Performed By: #### 1 6675078 ####[facility] [address] [place] [address] Glucose Test strip (U) [Mass/Vol] Negative Normal Negative [facility] Comment on above: Performed By: #### 1 2682029 ####[facility] [address] [place] [address] Hemoglobin Ql (U) Negative Normal Negative [facility] Comment on above: Performed By: #### 1 6873008 ####[address] [place] [address] Ketones (U) [Mass/Vol] Negative Normal Negative [facility] Comment on above: Performed By: #### 1 0521638 ####[address] [place] [address] [place].plasma/Lith ium.RBC (Bld) [Mass ratio] 0-3 Normal 0-3 [facility] Comment on above: Performed By: #### 1 5058820 ####[address] [place] [address] Nitrite Ql (U) Negative Normal Negative [facility] Comment on above: Performed By: #### 1 9403323 ####[address] [place] [address] pH (U) 7.5 [pH] Invalid Interpretation Code 5.0-9.0 [facility] Comment on above: Performed By: #### 1 6093716 ####[address] [place] [address] Protein (U) [Mass/Vol] Negative Normal Negative [facility] Comment on above: Performed By: #### 1 2576864 ####[address] [place] [address] Specific gravity (U) [Rel density] 1.015 Invalid Interpretation Code 1.005-1.030 [facility] Comment on above: Performed By: #### 1 6446349 ####[address] [place] [address] Type of Urine collection method Clean Catch Normal [facility] Comment on above: Performed By: #### 1 2819961 ####[facility] [address] [place] [address] Urobilinogen Qn (U) 0.2 {Munir'U}/dL Normal 0.0-1.0 [facility] Comment on above: Performed By: #### 1 2445522 ####[facility] [address] [place] [address] WBC Auto Ql (U) Negative Normal Negative [facility] Comment on above: Performed By: #### 1 2526607 ####[facility] [address] [place] [address] WBC LM.HPF (Urine sed) [#/Area] 0-5 Normal 0-5 [facility] Comment on above: Performed By: #### 1 9410028 ####[facility] [address] [place] [address] URINALYSISOrdered By: Edilberto Meng on 10-20-2022 Bilirubin Ql (U) Negative (10/20/22 10:25 AM) Normal Negative [facility] UA Auto SS Clarity (U) Clear (10/20/22 10:25 AM) Normal Clear [facility] UA Auto SS Color (U) Yellow (10/20/22 10:25 AM) Normal Yellow [facility] UA Auto SS Epithelial cells.squamous LM.HPF (Urine sed) [#/Area] 3-4 /HPF Normal 0-2/HPF [facility] UA Auto SS Glucose Test strip (U) [Mass/Vol] Negative (10/20/22 10:25 AM) Normal Negative [facility] UA Auto SS Hemoglobin Ql (U) Negative (10/20/22 10:25 AM) Normal Negative [facility] UA Auto SS Ketones (U) [Mass/Vol] Negative (10/20/22 10:25 AM) Normal Negative [facility] UA Auto SS [place].plasma/Lith ium.RBC (Bld) [Mass ratio] 0-3 /HPF Normal 0-3/HPF [facility] UA Auto SS Nitrite Ql (U) Negative (10/20/22 10:25 AM) Normal Negative [facility] UA Auto SS pH (U) 7.5 *NA* (10/20/22 10:25 AM) Invalid Interpretation Code 5.0 - 9.0 [facility] UA Auto SS Protein (U) [Mass/Vol] Negative (10/20/22 10:25 AM) Normal Negative [facility] UA Auto SS Specific gravity (U) [Rel density] 1.015 *NA* (10/20/22 10:25 AM) Invalid Interpretation Code 1.005 - 1.030 [facility] UA Auto SS UA Spec Desc Clean Catch (10/20/22 10:25 AM) Normal [facility] UA Auto SS Urobilinogen Qn (U) 0.3917550 {Munir'U}/dL Normal 0.0 - 1.0 EU/dL [facility] UA Auto SS WBC Auto Ql (U) Negative (10/20/22 10:25 AM) Normal Negative [facility] UA Auto SS WBC LM.HPF (Urine sed) [#/Area] 0-5 /HPF Normal 0-5/HPF [facility] UA Auto SS eGFRon 10-20-2022 GFR/1.73 sq M.predicted among non-blacks MDRD (S/P/Bld) [Vol rate/Area] 87 mL/min/1.73 m2 Normal >=59 [facility] Comment on above: Order Comment: Order added by Discern Expert. Result Comment: Sausage Linker alejandra kidney disease could be indicated at eGFR's of less than 60 mL/min/1.73m2. Kidney failure is indicated at less than 15 mL/min/1.73m2. Performed By: #### 2 195596, 2851648, 8350719, 99531767, 0128280 ####[facility] [address] [place] [address] Auto DiffOrdered By: SYSTEM SYSTEM on 10-19-2022 Basophils/100 WBC (Bld) 0.8 % Normal 0.0-2.0 [facility] Comment on above: Order Comment: Order Added by Discern Expert. Performed By: #### 2 044777, 5674936, 38778954, 3892835, 1543312, 45161560, 6764657 ####[facility] [address] [place] [address] Basophils/Leukocyte s Auto (Bld) [Pure # fraction] 0.0 E9/L Normal 0.0-0.2 [facility] Comment on above: Order Comment: Order Added by Discern Expert. Performed By: #### 2 632716, 3876069, 29539593, 8358367, 8888336, 61444048, 2642518 ####[address] [address] Eosinophils/100 WBC (Bld) 3.5 % Normal 0.0-8.0 [facility] Comment on above: Order Comment: Order Added by Discern Expert. Performed By: #### 2 385228, 5427651, 88146476, 4167972, 9253563, 26753994, 9331190 ####[address] [address] Eosinophils/Leukocy stevan Auto (Bld) [Pure # fraction] 0.2 E9/L Normal 0.0-0.5 [facility] Comment on above: Order Comment: Order Added by Discern Expert. Performed By: #### 2 706742, 4868694, 92413419, 2457004, 5685153, 41295223, 7554652 ####[address] [address] Lymphocytes/100 WBC (Bld) 47.3 % Normal 14.0-50.0 [facility] Comment on above: Order Comment: Order Added by Discern Expert. Performed By: #### 2 477170, 7490907, 62153223, 8389490, 6457351, 06530817, 9582397 ####[address] [address] Lymphocytes/Leukocy stevan Auto (Bld) [Pure # fraction] 2.1 E9/L Normal 1.0-4.0 [facility] Comment on above: Order Comment: Order Added by Mariela Expert. Performed By: #### 2 708050, 3557425, 01135203, 2090459, 5199626, 82931033, 4733158 ####[address] [place] [address] Monocytes/100 WBC (Bld) 6.6 % Normal 4.0-14.0 [facility] Comment on above: Order Comment: Order Added by Discern Expert. Performed By: #### 2 648490, 2252264, 81722515, 2700523, 6156462, 22485805, 1058175 ####[place] [address] [address] Monocytes/Leukocyte s Auto (Bld) [Pure # fraction] 0.3 E9/L Normal 0.2-1.0 [facility] Comment on above: Order Comment: Order Added by Discern Expert. Performed By: #### 2 732233, 9849460, 59455429, 2641945, 9344056, 41743378, 2783486 ####[address] [address] Neutrophils/100 WBC (Bld) 41.8 % Normal 36.0-75.0 [facility] Comment on above: Order Comment: Order Added by Discern Expert. Performed By: #### 2 267879, 3378012, 01754527, 7629367, 4134540, 50134773, 6256527 ####[address] [address] Neutrophils/Leukocy stevan Auto (Bld) [Pure # fraction] 1.8 E9/L Low 2.0-7.5 [facility] Comment on above: Order Comment: Order Added by Discern Expert. Performed By: #### 2 844057, 3100234, 54649012, 2795886, 4241259, 43752178, 9597618 ####[address] [address] BMPOrdered By: SYSTEM SYSTEM on 10-19-2022 Creatinine [Mass/Vol] 0.8 mg/dL Normal 0.5-1.3 [facility] Comment on above: Performed By: #### 2 201795, 3975185, 88865516, 6038977, 3081010, 06283805, 1355935 ####[place] [address] [address] [place] [address] Urea nitrogen [Mass/Vol] 9 mg/dL Normal 5-21 [facility] Comment on above: Performed By: #### 2 262111, 0719010, 98932501, 7507031, 0843003, 11901081, 6950688 ####[place] [facility] [address] [place] [address] Anion gap [Moles/Vol] 10 mmol/L Normal 6-16 [facility] Comment on above: Performed By: #### 2 784992, 0237673, 21789186, 9204948, 3829295, 11297434, 2199756 ####[place] [facility] [address] [place] [address] Calcium [Mass/Vol] 9.3 mg/dL Normal 8.9-11.1 [facility] R emisol Comment on above: Performed By: #### 2 179541, 9353749, 57025360, 1843841, 0412325, 65103368, 0307550 ####[place] [facility] [address] [place] [address] Chloride [Moles/Vol] 108 mmol/L Normal 101-111 [facility] Comment on above: Performed By: #### 2 848365, 5008070, 82495836, 3177467, 4262694, 31721512, 1787259 ####[place] [facility] [address] [place] [address] CO2 [Moles/Vol] 25 mmol/L Normal 21-31 [facility] Jonathan blade Comment on above: Performed By: #### 2 649054, 5627173, 58534662, 2547816, 1471898, 10042681, 7812911 ####[place] [facility] [address] [place] [address] Glucose [Mass/Vol] 83 mg/dL Normal 55-199 [facility] R emisol Comment on above: Result Comment: If t his glucose result represents a fasting glucose, interpretation should refer to the following reference range: 55-99 mg/dL Performed By: #### 2 521967, 3462557, 73573404, 3200576, 8586780, 73366191, 9527834 ####[facility] [address] [place] [address] Potassium [Moles/Vol] 4.1 mmol/L Normal 3.5-5.3 [facility] Remisol Comment on above: Performed By: #### 2 391038, 6147263, 58781278, 0668211, 2620590, 91074255, 6435136 ####[address] [place] [address] Sodium [Moles/Vol] 139 mmol/L Normal 135-145 [facility] R emisol Comment on above: Performed By: #### 2 704823, 1556599, 75081308, 1415418, 5595703, 58914219, 6133993 ####[address] [address] BMPon 10-19-2022 Urea nitrogen/Creatinine [Mass ratio] 11 No Units Normal 10-20 [facility] Comment on above: Performed By: #### 2 298112, 3659602, 47011245, 7239231, 5376120, 40762939, 2651415 ####[address] [address] CBC w/ Auto DiffOrdered By: Kaye Das on 10-19-2022 Erythrocyte distribution width (RBC) [Ratio] 13.7 % Normal 10.9-14.2 [facility] Comment on above: Performed By: #### 2 140622, 7765010, 41532634, 5536529, 7667695, 99372467, 0039094 ####[address] [place] [address] Hematocrit (Bld) [Volume fraction] 40.7 % Normal 34.0-46.0 [facility] Comment on above: Performed By: #### 2 860240, 0118360, 55819399, 6701818, 4500712, 51116352, 8770995 ####[address] [place] [address] Hemoglobin (Bld) [Mass/Vol] 14.1 g/dL Normal 12.0-16.0 [facility] Comment on above: Performed By: #### 2 955659, 5429007, 28930067, 3579563, 9221304, 22159677, 0103441 ####[place] [address] MCH (RBC) [Entitic mass] 31.0 pg Normal 27.0-34.0 [facility] Comment on above: Performed By: #### 2 980166, 4313813, 32819136, 5390635, 7259299, 30044985, 2759081 ####[place] [address] MCHC (RBC) [Mass/Vol] 34.5 g/dL Normal 31.4-36.0 [facility] Comment on above: Performed By: #### 2 132910, 3432815, 78422327, 8192474, 8866394, 35288497, 5892999 ####[place] [address] MCV (RBC) [Entitic vol] 89.8 fL Normal 80.0-100.0 [facility] Comment on above: Performed By: #### 2 411901, 3797509, 36671753, 9665236, 4313592, 66629583, 1388599 ####[place] [address] Platelet mean volume (Bld) [Entitic vol] 10.3 fL Normal 6.4-10.8 [facility] Comment on above: Performed By: #### 2 300626, 3748766, 83389657, 2266684, 4698710, 20603888, 4667780 ####[place] [address] Platelets (Bld) [#/Vol] 245.0 E9/L Normal 150.0-500.0 [facility] Comment on above: Performed By: #### 2 061212, 5355508, 59404527, 7676301, 4894460, 41942594, 5512550 ####[facility] [address] [place] [address] RBC (Bld) [#/Vol] 4.5 E12/L Normal 4.3-5.9 [facility] Comment on above: Performed By: #### 2 751514, 0842968, 64005563, 5260392, 9504246, 12554111, 4150872 ####[facility] [address] [place] [address] WBC corrected for nucl RBC Auto (Bld) [#/Vol] 4.4 E9/L Normal 4.0-11.0 [facility] Comment on above: Performed By: #### 2 678891, 8053114, 39109789, 9545268, 0242255, 58556779, 8010117 ####[facility] [address] [place] [address] CHEMISTRYOrdered By: SYSTEM SYSTEM on 10-19-2022 Albumin/Globulin [...] Consent for Treatmenton Consent for Treatment [id number] C7#1.00CD:127 Normal [facility] Discharge Instructionson Discharge Instructions [id number] 6#1.00CD:127 Normal [facility] ED Clinical Summaryon 2022 ED Clinical Summary Normal Kirsty ahumada [facility] ED Note-Physicianon 10-20-19 ED Note-Physician Normal [facility] Comment on above: Result Comment: Elec tronically Signed By: Earnest Jett DO\.br\Date and Time Signed: 10/19/22 13:41 EDT ED Patient Education Noteon 10-19-2022 ED Patient Education Note Normal [facility] ED Patient Summaryon 023 ED Patient Summary Normal [facility] Hep Func Panelon 10-19-2022 Bilirubin.indirect [Mass or moles/Vol] UTC Abnormal 0.1-0.9 [facility] Comment on above: Result Comment: Resu lt verified by Discern Rule. Performed result UTC (Unable to Calculate) was sent as an Alpha code due the inability to calculate a valid numeric value. Performed By: #### 2 490429, 5756991, 40929718, 1898631, 4842129, 34091122, 9847537 ####[facility] [address] [place] [address] Albumin/Globulin (S) [Mass conc ratio] 1.5 Normal 1.1-2.2 [facility] Comment on above: Performed By: #### 2 951837, 2207080, 67753778, 9934104, 1390012, 00162961, 3870802 ####[facility] [address] [place] [address] ALP [Catalytic activity/Vol] 63 Int._Unit/L Normal 21-98 [facility] Comment on above: Performed By: #### 2 690293, 2386328, 31466016, 2021684, 5397889, 85105628, 7055127 ####[facility] [address] [place] [address] ALT No additional P-5'-P [Catalytic activity/Vol] 30 Int._Unit/L Normal 6-46 [facility] Comment on above: Performed By: #### 2 290865, 4721970, 52872433, 1993283, 9655380, 39766680, 1785680 ####[address] [address] AST [Catalytic activity/Vol] 47 Int._Unit/L High 5-43 [facility] Comment on above: Performed By: #### 2 512097, 3295557, 65635189, 6676004, 0397483, 89768332, 8373238 ####[address] [address] Hep Func PanelOrdered By: Virtify SYSTEM on 10-19-2022 Albumin [Mass/Vol] 4.4 g/dL Normal 3.3-5.0 [facility] Comment on above: Performed By: #### 2 568298, 5725804, 93480475, 3882962, 8595803, 08682426, 6943381 ####[address] [address] Bilirubin [Mass/Vol] 0.5 mg/dL Normal 0.0-1.1 [facility] Comment on above: Performed By: #### 2 713743, 3399263, 27176429, 9807925, 3312758, 66988053, 2215569 ####[address] [address] Globulin (S) [Mass/Vol] 3.0 g/dL Normal 1.4-4.0 [facility] Comment on above: Performed By: #### 2 424102, 8202764, 56388750, 5686644, 3127661, 04670586, 4487880 ####[address] [address] Protein [Mass/Vol] 7.4 g/dL Normal 6.0-7.8 [facility] Comment on above: Performed By: #### 2 044584, 1757480, 82564403, 1665434, 3451859, 85583064, 5272392 ####[address] [place] [address] Bilirubin.direct [Mass/Vol] mg/dL Normal 0.1-0.4 [facility] Comment on above: Performed By: #### 2 563225, 0856222, 80356604, 2513029, 2600357, 00518961, 8169074 ####[address] [address] Lipase LevelOrdered By: SYST EM SYSTEM on 10-19-2022 Lipase [Catalytic activity/Vol] 89 U/L High 13-58 [facility] Comment on above: Performed By: #### 2 704405, 7132744, 73018472, 9142371, 6803022, 98785610, 9123289 ####[address] [address] Prescriptions/Work Noteson 0 10-19-2022 Prescriptions/Work Notes [id number] 7#1.00CD:127 Normal [facility] TSH With T4fr ReflexOrdered By: SYSTEM SYSTEM on 10-19-2022 TSH Qn 0.68 m[IU]/L Normal 0.34-5.60 [facility] Comment on above: Performed By: #### 2 655905, 8471890, 08121389, 0816824, 2253422, 70102300, 7294979 ####[address] [address] UA With Cult Reflexon 2022 Bilirubin Ql (U) Negative Normal Negative [facility] Comment on above: Performed By: #### 1 3822306 ####[address] [address] Clarity (U) CLEAR Normal Clear [facility] Comment on above: Performed By: #### 1 1441754 ####[address] [address] Color (U) YELLOW Normal Yellow [facility] Comment on above: Performed By: #### 1 7754697 ####[place] [address] [place] [address] Epithelial cells.squamous LM.HPF (Urine sed) [#/Area] 0-2 Normal 0-2 [facility] Comment on above: Performed By: #### 1 2630778 ####[address] [address] Glucose Test strip (U) [Mass/Vol] Negative Normal Negative [facility] Comment on above: Performed By: #### 1 2100108 ####[address] [address] Hemoglobin Ql (U) Negative Normal Negative [facility] Comment on above: Performed By: #### 1 9420150 ####[address] [address] Ketones (U) [Mass/Vol] Negative Normal Negative [facility] Comment on above: Performed By: #### 1 0784171 ####[address] [address] [place].plasma/Lith ium.RBC (Bld) [Mass ratio] 0-3 Normal 0-3 [facility] Comment on above: Performed By: #### 1 9179021 ####[address] [address] Nitrite Ql (U) Negative Normal Negative [facility] Comment on above: Performed By: #### 1 0778573 ####[address] [address] pH (U) 7.5 [pH] Invalid Interpretation Code 5.0-9.0 [facility] Comment on above: Performed By: #### 1 7203022 ####[address] [address] Protein (U) [Mass/Vol] Negative Normal Negative [facility] Comment on above: Performed By: #### 1 5399852 ####[address] [address] Specific gravity (U) [Rel density] 1.010 Invalid Interpretation Code 1.005-1.030 [facility] Comment on above: Performed By: #### 1 9234258 ####[facility] [address] [place] [address] Type of Urine collection method Clean Catch Normal [facility] Comment on above: Performed By: #### 1 7206187 ####[facility] [address] [place] [address] Urobilinogen Qn (U) 0.2 {Munir'U}/dL Normal 0.0-1.0 [facility] Comment on above: Performed By: #### 1 3224735 ####[facility] [address] [place] [address] WBC Auto Ql (U) Negative Normal Negative [facility] Comment on above: Performed By: #### 1 1801496 ####[facility] [address] [place] [address] WBC LM.HPF (Urine sed) [#/Area] 0-5 Normal 0-5 [facility] Comment on above: Performed By: #### 1 5375136 ####[facility] [address] [place] [address] URINALYSISOrdered By: Kaye brito on 10-19-2022 Bilirubin Ql (U) Negative (10/19/22 9:18 AM) Normal Negative [facility] UA Auto SS Clarity (U) Clear (10/19/22 9:18 AM) Normal Clear [facility] UA Auto SS Color (U) Yellow (10/19/22 9:18 AM) Normal Yellow [facility] UA Auto SS Epithelial cells.squamous LM.HPF (Urine sed) [#/Area] 0-2 /HPF Normal 0-2/HPF [facility] UA Auto SS Glucose Test strip (U) [Mass/Vol] Negative (10/19/22 9:18 AM) Normal Negative [facility] UA Auto SS Hemoglobin Ql (U) Negative (10/19/22 9:18 AM) Normal Negative [facility] UA Auto SS Ketones (U) [Mass/Vol] Negative (10/19/22 9:18 AM) Normal Negative [facility] UA Auto SS [place].plasma/Lith ium.RBC (Bld) [Mass ratio] 0-3 /HPF Normal 0-3/HPF [facility] UA Auto SS Nitrite Ql (U) Negative (10/19/22 9:18 AM) Normal Negative [facility] UA Auto SS pH (U) 7.5 *NA* (10/19/22 9:18 AM) Invalid Interpretation Code 5.0 - 9.0 [facility] UA Auto SS Protein (U) [Mass/Vol] Negative (10/19/22 9:18 AM) Normal Negative [facility] UA Auto SS Specific gravity (U) [Rel density] 1.010 *NA* (10/19/22 9:18 AM) Invalid Interpretation Code 1.005 - 1.030 [facility] UA Auto SS UA Spec Desc Clean Catch (10/19/22 9:18 AM) Normal [facility] UA Auto SS Urobilinogen Qn (U) 0.7448884 {Munir'U}/dL Normal 0.0 - 1.0 EU/dL [facility] UA Auto SS WBC Auto Ql (U) Negative (10/19/22 9:18 AM) Normal Negative [facility] UA Auto SS WBC LM.HPF (Urine sed) [#/Area] 0-5 /HPF Normal 0-5/HPF [facility] UA Auto SS XR Chest 2 Viewson 3 XR Chest 2 Views Normal [facility] eGFROrdered By: SYSTEM SYSTE M on 10-19-2022 GFR/1.73 sq M.predicted among non-blacks MDRD (S/P/Bld) [Vol rate/Area] 100 mL/min/1.73 m2 Normal >=59 [facility] Chem S Comment on above: Order Comment: Order added by Discern Expert. Result Comment: Sausage Linker alejandra kidney disease could be indicated at eGFR's of less than 60 mL/min/1.73m2. Kidney failure is indicated at less than 15 mL/min/1.73m2. Performed By: #### 2 657859, 6009635, 13499256, 4977313, 8104118, 39338134, 9994598 ####[facility] [address] [place] [address] ALLIED HEALTHon 10-18-2022 ALLIED HEALTH HNO ID: [id number] Author: Karina Gonzales Tech Service: ? Author [...] 2022 TIME: 10:07 AM Normal [facility] CBC W Auto Differential pane l (Bld)on 10-18-2022 Basophils (Bld) [#/Vol] 0.03 10*3/uL Normal <0.11 [facility] Comment on above: Order Comment: Speci men Type: BLOOD SPECIMEN Ordering Facility: [facility] Address: [address] [address] Performed By: #### 5 7021-8 #### [facility] CLIA [id number] [address] Basophils/100 WBC (Bld) 0.8 % Normal [facility] Comment on above: Order Comment: Speci men Type: BLOOD SPECIMEN Ordering Facility: [facility] Address: [address] [place] [address] Performed By: #### 5 7021-8 #### [facility] CLIA [id number] [address] Differential cell count method Nom (Bld) Auto Normal [facility] Comment on above: Order Comment: Speci men Type: BLOOD SPECIMEN [facility] [facility] Address: [address] [place] [address] Performed By: #### 5 7021-8 #### [facility] CLIA [id number] [address] [place] Eosinophils (Bld) [#/Vol] 0.14 10*3/uL Normal <0.46 [facility] Comment on above: Order Comment: Speci men Type: BLOOD SPECIMEN Ordering Facility: [facility] Address: [address] [place] [address] Performed By: #### 5 7021-8 #### [facility] CLIA [id number] [address] Eosinophils/100 WBC (Bld) 3.7 % Normal [facility] Comment on above: Order Comment: Speci men Type: BLOOD SPECIMEN Ordering Facility: [facility] Address: [address] [place] [address] Performed By: #### 5 7021-8 #### [facility] CLIA [id number] [address] [place] Erythrocyte distribution width (RBC) [Ratio] 12.7 % Normal 11.5-15.0 [facility] Comment on above: Order Comment: Speci men Type: BLOOD SPECIMEN Ordering Facility: [facility] Address: [address] [address] Performed By: #### 5 7021-8 #### [facility] CLIA [id number] [address] [facility] Hematocrit (Bld) [Volume fraction] 38.5 % Normal 36.0-46.0 [facility] Comment on above: Order Comment: Speci men Type: BLOOD SPECIMEN Ordering Facility: [facility] Address: [address] [address] Performed By: #### 5 7021-8 #### [facility] CLIA [id number] [address] [facility] Hemoglobin (Bld) [Mass/Vol] 12.9 g/dL Normal 11.5-15.5 [facility] Comment on above: Order Comment: Speci men Type: BLOOD SPECIMEN Ordering Facility: [facility] Address: [address] [address] Performed By: #### 5 7021-8 #### [facility] CLIA [id number] [address] Immature granulocytes (Bld) [#/Vol] 10*3/uL Normal <0.10 [facility] Comment on above: Order Comment: Speci men Type: BLOOD SPECIMEN Ordering Facility: [facility] Address: [address] [address] Performed By: #### 5 7021-8 #### [facility] CLIA [id number] [address] Immature granulocytes/100 WBC (Bld) 0.3 % Normal [facility] Comment on above: Order Comment: Speci men Type: BLOOD SPECIMEN Order[facility] Facility: [facility] Address: [address] [place] [address] Performed By: #### 5 7021-8 #### [facility] CLIA [id number] [address] [place] Lymphocytes (Bld) [#/Vol] 1.66 10*3/uL Normal 1.00-4.00 [facility] Comment on above: Order Comment: Speci men Type: BLOOD SPECIMEN Ordering Facility: [facility] Address: [address] [address] Performed By: #### 5 7021-8 #### [facility] CLIA [id number] [address] Lymphocytes/100 WBC (Bld) 43.7 % Normal [facility] Comment on above: Order Comment: Speci men Type: BLOOD SPECIMEN Order[facility] Facility: [facility] Address: [address] [place] [address] Performed By: #### 5 7021-8 #### [facility] CLIA [id number] [address] MCH (RBC) [Entitic mass] 30.2 pg Normal 26.0-34.0 [facility] Comment on above: Order Comment: Speci men Type: BLOOD SPECIMEN Order[facility] Facility: [facility] Address: [address] [place] [address] Performed By: #### 5 7021-8 #### [facility] CLIA [id number] [address] MCHC (RBC) [Mass/Vol] 33.5 g/dL Normal 30.5-36.0 [facility] Comment on above: Order Comment: Speci men Type: BLOOD SPECIMEN Ordering Facility: [facility] Address: [address] [address] Performed By: #### 5 7021-8 #### [facility] CLIA [id number] [address] MCV (RBC) [Entitic vol] 90.2 fL Normal 80.0-100.0 [facility] Comment on above: Order Comment: Speci men Type: BLOOD SPECIMEN Ordering Facility: [facility] Address: [address] [place] [address] Performed By: #### 5 7021-8 #### [facility] CLIA [id number] [address] [place] Monocytes (Bld) [#/Vol] 0.28 10*3/uL Normal <0.87 [facility] Comment on above: Order Comment: Speci men Type: BLOOD SPECIMEN Ordering Facility: [facility] Address: [address] [place] [address] Performed By: #### 5 7021-8 #### [facility] CLIA [id number] [address] [place] Monocytes/100 WBC (Bld) 7.4 % Normal [facility] Comment on above: Order Comment: Speci men Type: BLOOD SPECIMEN Ordering Facility: [facility] Address: [address] [place] [address] Performed By: #### 5 7021-8 #### [facility] CLIA [id number] [address] [place] Neutrophils (Bld) [#/Vol] 1.68 10*3/uL Normal 1.45-7.50 [facility] Comment on above: Order Comment: Speci men Type: BLOOD SPECIMEN Ordering Facility: [facility] Address: [address] [place] [address] Performed By: #### 5 7021-8 #### [facility] CLIA [id number] [address] Neutrophils/100 WBC (Bld) 44.1 % Normal [facility] Comment on above: Order Comment: Speci men Type: BLOOD SPECIMEN Ordering Facility: [facility] Address: [address] [place] [address] Performed By: #### 5 7021-8 #### [facility] CLIA [id number] [address] [place] Nucleated RBC (Bld) [#/Vol] 10*3/uL Normal <0.01 [facility] Comment on above: Order Comment: Speci men Type: BLOOD SPECIMEN Ordering Facility: [facility] Address: [address] [address] Performed By: #### 5 7021-8 #### [facility] CLIA [id number] [address] [place] Nucleated RBC/100 WBC (Bld) [Ratio] 0.0 /100 WBC Normal [facility] Comment on above: Order Comment: Speci men Type: BLOOD SPECIMEN Ordering Facility: [facility] Address: [address] [address] Performed By: #### 5 7021-8 #### [facility] CLIA [id number] [address] [place] Platelet mean volume (Bld) [Entitic vol] 11.1 fL Normal 9.0-12.7 [facility] Comment on above: Order Comment: Speci men Type: BLOOD SPECIMEN Ordering Facility: [facility] Address: [address] [place] [address] Performed By: #### 5 7021-8 #### [facility] CLIA [id number] [address] [place] Platelets (Bld) [#/Vol] 231 10*3/uL Normal 150-400 [facility] Comment on above: Order Comment: Speci men Type: BLOOD SPECIMEN [facility]: [facility] Address: [address] [place] [address] Performed By: #### 5 7021-8 #### [facility] CLIA [id number] [address] [place] RBC (Bld) [#/Vol] 4.27 10*6/uL Normal 3.90-5.20 [facility] Comment on above: Order Comment: Speci men Type: BLOOD SPECIMEN Order[facility]: [facility] Address: [address] [place] [address] Performed By: #### 5 7021-8 #### [facility] CLIA [id number] [address] [place] WBC (Bld) [#/Vol] 3.80 10*3/uL Normal 3.70-11.00 [facility] Comment on above: Order Comment: Speci men Type: BLOOD SPECIMEN Ordering Facility: [facility] Address: [place] [address] Performed By: #### 5 7021-8 #### [facility] CLIA [id number] 1 [place] [address] [place] ABD/PEL WO IVCONon 2022 CT ABD/PEL WO IVCON * * *Final Report* * * DATE OF EXAM: Oct 18 2022 10:07AM [facility] 0531 - CT ABD/PEL [...] Tissues: No acute abnormality. Lower thorax: Unremarkable. Kettle Firer (topogram) images: No additional findings. IMPRESSION: Stable findings as detailed above. No acute intra-abdominal or pelvic process seen. Reinforcing Rod Layer: PSCB Transcribe Date/Time: Oct 18 2022 10:14A Dictated by : ADELA FISHER MD This examination was interpreted and the report reviewed and electronically signed by: ADELA FISHER MD on Oct 18 2022 10:21AM EST [id number] Normal [facility] Comprehensive metabolic 2000 panelon 10-18-2022 Albumin [Mass/Vol] 4.3 g/dL Normal 3.9-4.9 [facility] Comment on above: Order Comment: Speci men Type: BLOOD SPECIMEN Order[facility] Facility: [facility] Address: [address] [address] Performed By: #### 2 4323-8, 0-3 #### [facility] CLIA [id number] [address] ALP [Catalytic activity/Vol] 73 U/L Normal 34-123 [facility] Comment on above: Order Comment: Speci men Type: BLOOD SPECIMEN Ordering Facility: [facility] Address: [address] [address] Performed By: #### 2 4323-8, 0-3 #### [facility] CLIA [id number] [address] [facility] ALT With P-5'-P [Catalytic activity/Vol] 24 U/L Normal 7-38 [facility] Comment on above: Order Comment: Speci men Type: BLOOD SPECIMEN Order[facility] Facility: [facility] Address: [address] [address] Performed By: #### 2 4323-8, 3040-3 #### [facility] CLIA [id number] [address] Anion gap [Moles/Vol] 8 mmol/L Low 9-18 [facility] Comment on above: Order Comment: Speci men Type: BLOOD SPECIMEN Order[facility]: [facility] Address: [address] [address] Performed By: #### 2 4323-8, 0-3 #### [facility] CLIA [id number] [address] [facility] AST With P-5'-P [Catalytic activity/Vol] 36 U/L High 13-35 [facility] Comment on above: Order Comment: Speci men Type: BLOOD SPECIMEN Order[facility]: [facility] Address: [address] [place] [address] Performed By: #### 2 4323-8, 0-3 #### [facility] CLIA [id number] [address] [place] Bilirubin [Mass/Vol] 0.4 mg/dL Normal 0.2-1.3 [facility] Comment on above: Order Comment: Speci men Type: BLOOD SPECIMEN Order[facility]: [facility] Address: [address] [place] [address] Performed By: #### 2 43238, 3039-3 #### [facility] CLIA [id number] [address] [place] Calcium [Mass/Vol] 8.9 mg/dL Normal 8.5-10.2 [facility] Comment on above: Order Comment: Speci men Type: BLOOD SPECIMEN Order[facility] Facility: [facility] Address: [address] [place] [address] Performed By: #### 2 4323-8, 3039-3 #### [facility] CLIA [id number] [address] [place] Chloride [Moles/Vol] 108 mmol/L High 97-105 [facility] Comment on above: Order Comment: Speci men Type: BLOOD SPECIMEN Order[facility]: [facility] Address: [address] [place] [address] Performed By: #### 2 4323-8, 0-3 #### [facility] CLIA [id number] [address] [place] CO2 [Moles/Vol] 26 mmol/L Normal 22-30 [facility] Comment on above: Order Comment: Specmichael men Type: BLOOD SPECIMEN Ordering Facility: [facility] Address: [address] [address] Performed By: #### 2 4323-8, 3040-3 #### [facility] CLIA [id number] [address] [place] Creatinine [Mass/Vol] 0.81 mg/dL Normal 0.58-0.96 [facility] Comment on above: Order Comment: Speci men Type: BLOOD SPECIMEN Order[facility] Facility: [facility] Address: [address] [address] Performed By: #### 2 4323-8, 0-3 #### [facility] CLIA [id number] [address] [facility] Creatinine and Glomerular filtration rate.predicted panel (S/P/Bld) 98 mL/min/1.73m??? Normal >=60 [facility] Comment on above: Order Comment: Specmichael men Type: BLOOD SPECIMEN Order[facility] Facility: [facility] Address: [address] [place] [address] Result Comment: Jessica mated Glomerular Filtration Rate [...] actual GFR. Performed By: #### 2 4323-8, 0-3 #### [facility] CLIA [id number] 1 [place] [address] [place] Glucose [Mass/Vol] 85 mg/dL Normal 74-99 [facility] Comment on above: Order Comment: Speci men Type: BLOOD SPECIMEN Order[facility] Facility: [facility] Address: [address] [place] [address] Result Comment: The [place] [employer] (ADA) provides guidance for cutoff [...] Standards of Medical Care in Diabetes 2016, [place] [employer]. Diabetes Care. 2016.39(Suppl 1). Performed By: #### 2 4323-8, 3040-3 #### [facility] CLIA [id number] 1 [place] [address] [place] Potassium [Moles/Vol] 4.3 mmol/L Normal 3.7-5.1 [facility] Comment on above: Order Comment: Geraldo marrero Type: BLOOD SPECIMEN Ordering Facility: [facility] Address: [address] [place] [address] Performed By: #### 2 43238, 0-3 #### [facility] CLIA [id number] 1 [place] [address] [place] Protein [Mass/Vol] 6.4 g/dL Normal 6.3-8.0 [facility] Comment on above: Order Comment: Geraldo marrero Type: BLOOD SPECIMEN Order[facility] Facility: [facility] Address: [address] [place] [address] Performed By: #### 2 43238, 0-3 #### [facility] CLIA [id number] 1 [place] [address] [place] Sodium [Moles/Vol] 142 mmol/L Normal 136-144 [facility] Comment on above: Order Comment: Geraldo marrero Type: BLOOD SPECIMEN Order[facility] Facility: [facility] Address: [address] [place] [address] Performed By: #### 2 4323-8, 3040-3 #### [facility] CLIA [id number] 1 [place] [address] [place] Urea nitrogen [Mass/Vol] 8 mg/dL Normal 7-21 [facility] Comment on above: Order Comment: Speci men Type: BLOOD SPECIMEN Ordering Facility: [facility] Address: [place] [address] Performed By: #### 2 4323-8, 3040-3 #### [facility] CLIA [id number] [address] ED NOTEon 10-18-2022 ED NOTE HNO ID: [id number] Author: Serafin Curiel RN Service: ? Author Type: Registered Nurse Type: ED Notes Filed: 10/18/2022 10:46 AM Note Text: Provider previously at bedside discussing results/findings. Discharge instructions, follow up recommendations and medications reviewed with patient. Pt advised to return to ED with worsening symptoms. Pt verbalizes understanding. Stable and ambulatory upon d/c Normal [facility] ED NOTE HNO ID: [id number] Author: Alannah Carter RN Service: ? Author Type: Registered Nurse Type: ED Notes Filed: 10/18/2022 7:53 AM Note Text: Bed: 26-ED Expected date: Expected time: Means of arrival: Comments: TRIAGE Normal [facility] ED PROV NOTEon 10-18-2022 ED PROV NOTE HNO ID: [id number] Author: Alverto Barrett MD Service: Emergency Medicine [...] (more content not included)... Normal [facility] Lipase SerPl-cCncon 10-19-19 23 Lipase [Catalytic activity/Vol] 34 U/L Normal 16-61 [facility] Comment on above: Order Comment: Geraldo marrero Type: BLOOD SPECIMEN Order[facility] Facility: [facility] Address: [address] [place] [address] Performed By: #### 2 4323-8, 3040-3 #### [facility] CLIA [id number] [address] [id number] [place] Urinalysis complete panel (U )on 10-18-2022 Bilirubin Ql (U) Negative Normal Negative [place] Comment on above: Order Comment: Geraldo marrero Type: URINE SPECIMEN Ordering Facility: [facility] Address: [address] [place] [address] Performed By: #### 2 4356-8 #### [facility] CLIA [id number] [address] Clarity (Unsp spec) Clear Normal Clear [facility] Comment on above: Order Comment: Speci men Type: URINE SPECIMEN Ordering Facility: [facility] Address: [address] [address] Performed By: #### 2 4356-8 #### [facility] CLIA [id number] [address] Color (U) Light Yellow Normal yellow [facility] Comment on above: Order Comment: Speci men Type: URINE SPECIMEN Ordering Facility: [facility] Address: [address] [place] [address] Performed By: #### 2 4356-8 #### [facility] CLIA [id number] [address] [place] [address] Epithelial cells LM.HPF (Urine sed) [#/Area] Few Normal [facility] Comment on above: Order Comment: Speci men Type: URINE SPECIMEN Order[facility] Facility: [facility] Address: [address] [place] [address] Performed By: #### 2 4356-8 #### [facility] CLIA [id number] [address] Glucose Test strip (U) [Mass/Vol] Negative Normal Trace, Negative [facility] Comment on above: Order Comment: Speci men Type: URINE SPECIMEN Ordering Facility: [facility] Address: [address] [place] [address] Performed By: #### 2 4356-8 #### [facility] CLIA [id number] [address] Hemoglobin Ql (U) Negative Normal Negative, Trace [facility] Comment on above: Order Comment: Speci men Type: URINE SPECIMEN Ordering Facility: [facility] Address: [address] [place] [address] Performed By: #### 2 4356-8 #### [facility] CLIA [id number] [address] Ketones Ql (U) Negative Normal Negative, Trace [facility] Comment on above: Order Comment: Speci men Type: URINE SPECIMEN Ordering Facility: [facility] Address: [address] [place] [address] Performed By: #### 2 4356-8 #### [facility] CLIA [id number] [address] Leukocyte esterase Test strip Ql (U) Negative Normal Negative, 25 Patito/uL [facility] Comment on above: Order Comment: Speci men Type: URINE SPECIMEN Ordering Facility: [facility] Address: [address] [place] [address] Performed By: #### 2 4356-8 #### [facility] CLIA [id number] [address] Nitrite Ql (U) Negative Normal Negative [facility] Comment on above: Order Comment: Speci men Type: URINE SPECIMEN Ordering Facility: [facility] Address: [address] [place] [address] Performed By: #### 2 4356-8 #### [facility] CLIA [id number] [address] [facility] pH (U) 7.5 [pH] Normal 5.0-8.0 [facility] Comment on above: Order Comment: Speci men Type: URINE SPECIMEN Ordering Facility: [facility] Address: [address] [place] [address] Performed By: #### 2 4356-8 #### [facility] CLIA [id number] [address] Protein (U) [Mass/Vol] Negative Normal Trace, Negative [facility] Comment on above: Order Comment: Speci men Type: URINE SPECIMEN Ordering Facility: [facility] Address: [address] [place] [address] Performed By: #### 2 4356-8 #### [facility] CLIA [id number] [address] RBC LM.HPF (Urine sed) [#/Area] 0-3 /HPF Normal 0-3 /HPF [facility] Comment on above: Order Comment: Speci men Type: URINE SPECIMEN Ordering Facility: [facility] Address: [address] [place] [address] Performed By: #### 2 4356-8 #### [facility] CLIA [id number] [address] Specific gravity (U) [Rel density] 1.008 Normal 1.005-1.030 [facility] Comment on above: Order Comment: Speci men Type: URINE SPECIMEN Order[facility] Facility: [facility] Address: [address] [place] [address] Performed By: #### 2 4356-8 #### [facility] CLIA [id number] [address] [place] [address] Urobilinogen Ql (U) Normal Normal Negative [facility] Comment on above: Order Comment: Speci men Type: URINE SPECIMEN Ordering Facility: [facility] Address: [address] [place] [address] Performed By: #### 2 4356-8 #### [facility] CLIA [id number] [address] [place] [address] WBC LM.HPF (Urine sed) [#/Area] 0-5 /HPF Normal 0-5 /HPF [facility] Comment on above: Order Comment: Speci men Type: URINE SPECIMEN Ordering Facility: [facility] Address: [address] [place] [address] Performed By: #### 2 4356-8 #### [facility] CLIA [id number] [address] Urinalysis w/ Microon 2022 Bilirubin, SemiQt,Ur Negative Normal NEG [facility] Comment on above: Performed By: #### U AMI #### [facility] [address] [place], [place] [id number] Emergency Medical Dispatcher: Baldomero Espinoza MD Blood, Urine Negative Normal NEG [facility] Comment on above: Performed By: #### U AMIC #### [facility] [address] [place], [place] [id number] Emergency Medical Dispatcher: Baldomero Espinoza MD Clarity (U) Clear Normal CLEAR [facility] Comment on above: Performed By: #### U AMIC #### [facility] [address] [place], [place] [id number] Emergency Medical Dispatcher: Baldomero Espinoza MD Color (U) Yellow Normal YEL [facility] Comment on above: Performed By: #### U AMIC #### [facility] [address] [place], [place] [id number] Emergency Medical Dispatcher: Baldomero Espinoza MD Epithelial cells LM Ql (Urine sed) None Normal 0-25 [facility] Comment on above: Performed By: #### U AMIC #### [facility] [address] [place], [place] [id number] Emergency Medical Dispatcher: Baldomero Espinoza MD Glucose Ql (U) Negative Normal NEG [facility] Comment on above: Performed By: #### U AMIC #### [facility] [address] [place], [place] [phone] Emergency Medical Dispatcher: Baldomero Espinoza MD Ketones Ql (U) Negative Normal NEG [facility] Comment on above: Performed By: #### U AMIC #### [facility] [address] [place], [place] [id number] Emergency Medical Dispatcher: Baldomero Espinoza MD Leukocyte esterase Test strip Ql (U) Negative Normal NEG [facility] Comment on above: Performed By: #### U AMIC #### [facility] [address] [place], [place] [phone] Emergency Medical Dispatcher: Baldomero Espinoza MD Nitrite,Ur Negative Normal NEG [facility] Comment on above: Performed By: #### U AMIC #### [facility] [address] [place] [address] [place] [place], [place] [id number] Emergency Medical Dispatcher: Baldomero Espinoza MD PH,Ur 6.5 Normal 5.0-9.0 [facility] Comment on above: Performed By: #### U AMIC #### [facility] [address] [place] [address] [place] [address] Emergency Medical Dispatcher: Baldomero Espinoza MD Protein Ql (U) Negative Normal NEG [facility] Comment on above: Performed By: #### U AMIC #### [address] [place], [place] [id number] Emergency Medical Dispatcher: Baldomero Espinoza MD Spec. [place],Ur 1.020 Normal 1.010-1.020 [facility] Comment on above: Performed By: #### U AMIC #### [facility] [address] [place] [address] [place] [address] Emergency Medical Dispatcher: Baldomero Espinoza MD Urine RBC's None Normal 0-2 [facility] Comment on above: Performed By: #### U AMIC #### [facility] [address] [place] [address] [place] [address] Emergency Medical Dispatcher: Baldomero Espinoza MD Urine WBC's None Normal 0-5 [facility] Comment on above: Performed By: #### U AMIC #### [facility] [address] [place] [address] [place] [address] Emergency Medical Dispatcher: Baldomero Espinoza MD Urobilinogen,Ur Normal Normal 0.0-1.0 [facility] Comment on above: Performed By: #### U AMIC #### [facility] [address] [place] [address] [place] [place], [place] [id number] Emergency Medical Dispatcher: Baldomero Espinoza MD [facility] 10-08-2022 Forms [id number] 26#1.00CD:127 Normal [facility] Ambulatory Visit Summaryon 0 10-07-2022 Ambulatory Visit Summary Normal [address] [place] [address] [place] [address]- \.br\ Medications\.br\ What How Much When Why [...] Metabolic syndrome\.br\ PCOS- polycystic ovary syndrome\.br\ \.br\ [facility] Family Medicine Office/Clini c Noteon 10-07-2022 Family Medicine Office/Clinic Note Normal [facility] Comment on above: Result Comment: Elec tronically Signed By: Jaquan Paula\.rene\Date and Time Signed: 10/07/22 16:37 EDT Operative Reporton Operative Report [id number] 4C#1.00CD:127 Normal [facility] CNOVon 09-18-2022 CNOV Normal [facility] CNPNon 09-04-2022 CNPN Normal [facility] C3 COMPLEMENT Don 06-13-19 Complement C3 [Mass/Vol] 140 mg/dL 86 - 166 mg/dL [facility] C4 COMPLEMENT Don 06-13-19 Complement C4 [Mass/Vol] 25 mg/dL 13 - 46 mg/dL [facility] CBC W Auto Differential pane l (Bld)on 06-12-2022 Basophils (Bld) [#/Vol] 0.04 10*3/uL <0.11 k/uL [facility] Basophils/100 WBC (Bld) 0.9 % [facility] Differential cell count method Nom (Bld) Auto [facility] Eosinophils (Bld) [#/Vol] 0.09 10*3/uL <0.46 k/uL [facility] Eosinophils/100 WBC (Bld) 2.0 % [facility] Erythrocyte distribution width (RBC) [Ratio] 12.8 % 11.5 - 15.0 % [facility] Hematocrit (Bld) [Volume fraction] 40.5 % 36.0 - 46.0 % [facility] Hemoglobin (Bld) [Mass/Vol] 13.4 g/dL 11.5 - 15.5 g/dL [facility] Immature granulocytes (Bld) [#/Vol] <0.10 k/uL [facility] Immature granulocytes/100 WBC (Bld) 0.2 % [facility] Lymphocytes (Bld) [#/Vol] 1.73 10*3/uL 1.00 - 4.00 k/uL [facility] Lymphocytes/100 WBC (Bld) 37.9 % [facility] MCH (RBC) [Entitic mass] 30.0 pg 26.0 - 34.0 pg [facility] MCHC (RBC) [Mass/Vol] 33.1 g/dL 30.5 - 36.0 g/dL [facility] MCV (RBC) [Entitic vol] 90.8 fL 80.0 - 100.0 fL [facility] Monocytes (Bld) [#/Vol] 0.23 10*3/uL <0.87 k/uL [facility] Monocytes/100 WBC (Bld) 5.0 % [facility] Neutrophils (Bld) [#/Vol] 2.46 10*3/uL 1.45 - 7.50 k/uL [facility] Neutrophils/100 WBC (Bld) 54.0 % [facility] Nucleated RBC (Bld) [#/Vol] <0.01 k/uL [facility] Nucleated RBC/100 WBC (Bld) [Ratio] 0.0 /100 WBC [facility] Platelet mean volume (Bld) [Entitic vol] 11.3 fL 9.0 - 12.7 fL [facility] Platelets (Bld) [#/Vol] 292 10*3/uL 150 - 400 k/uL [facility] RBC (Bld) [#/Vol] 4.46 10*6/uL 3.90 - 5.20 m/uL [facility] WBC (Bld) [#/Vol] 4.56 10*3/uL 3.70 - 11.00 k/u L [facility] CK CREATINE KINASEon 023 CK [Catalytic activity/Vol] 44 U/L 42 - 196 U/L [facility] Comprehensive metabolic 2000 panelon 06-12-2022 Albumin [Mass/Vol] 4.3 g/dL 3.9 - 4.9 g/dL Cl [facility] ALP [Catalytic activity/Vol] 64 U/L 34 - 123 U/L [facility] ALT [Catalytic activity/Vol] 20 U/L 7 - 38 U/L [facility] Anion gap [Moles/Vol] 10 mmol/L 9 - 18 mmol/L [facility] AST [Catalytic activity/Vol] 33 U/L 13 - 35 U/L [facility] Bilirubin [Mass/Vol] 0.4 mg/dL 0.2 - 1.3 mg/dL [facility] Calcium [Mass/Vol] 9.3 mg/dL 8.5 - 10.2 mg/dL [facility] Chloride [Moles/Vol] 106 mmol/L High 97 - 105 mmol/L [facility] CO2 [Moles/Vol] 23 mmol/L 22 - 30 mmol/L [facility] Creatinine [Mass/Vol] 0.76 mg/dL 0.58 - 0.96 mg/dL [facility] Estimated Glomerular Filtration Rate 106 mL/min/1.73m >=60 mL/min/1.73m [facility] Glucose [Mass/Vol] 79 mg/dL 74 - 99 mg/dL [facility] Potassium [Moles/Vol] 4.0 mmol/L 3.7 - 5.1 mmol/L [facility] Protein [Mass/Vol] 6.9 g/dL 6.3 - 8.0 g/dL [facility] Sodium [Moles/Vol] 139 mmol/L 136 - 144 mmol/L [facility] Urea nitrogen [Mass/Vol] 9 mg/dL 7 - 21 mg/dL [facility] FERRITIN BLDon 06-12-2022 Ferritin [Mass/Vol] 36.6 ng/mL 14.7 - 205.1 ng/ mL [facility] FOLATE SERUMon 06-12-2022 Folate [Mass/Vol] 6.8 ng/mL >4.7 ng/mL [facility] Iron and Iron binding capaci ty panelon 06-12-2022 Iron [Mass/Vol] 100 ug/dL 41 - 186 ug/dL [facility] Iron binding capacity [Mass/Vol] 332 ug/dL 232 - 386 ug/dL [facility] Iron/TIBC [Molar ratio] 30.1 % 15.0 - 57.0 % [facility] MAGNESIUM BLDon 06-12-2022 Magnesium [Mass/Vol] 2.2 mg/dL 1.7 - 2.3 mg/dL [facility] RHEUMATOID FACTOR BLon 06-12 Rheumatoid factor Qn <16 IU/mL [facility] VITAMIN B12 BLOODon 06-13-19 Cobalamin (Vitamin B12) [Mass/Vol] 854 pg/mL 232 - 1,245 pg/mL [facility] CHEMISTRYOrdered By: SYSTEM SYSTEM on 06-10-2022 Troponin I.cardiac [Mass/Vol] pg/mL Low 10.10 - 27.10 pg/mL [facility] Remisol Anion gap [Moles/Vol] 13 mmol/L Normal 6 - 16 mEq/L [facility] Remisol Calcium [Mass/Vol] 9.0 mg/dL Normal 8.9 - 11.1 mg/dL [facility] Remisol Chloride [Moles/Vol] 105 mmol/L Normal 101 - 111 mmol/L [facility] Remisol CO2 [Moles/Vol] 20 mmol/L Low 21 - 31 mmol/L [facility] Remisol Creatinine [Mass/Vol] 0.8 mg/dL Normal 0.5 - 1.3 mg/dL [facility] Remisol CRP [Mass/Vol] 0.6 mg/dL Normal <=1.9mg/dL [facility] Remis ol GFR/1.73 sq M.predicted among non-blacks MDRD (S/P/Bld) [Vol rate/Area] 100 mL/min/1.73 m2 Normal >=59mL/min/1.73 m2 [facility] Chem S Glucose [Mass/Vol] 83 mg/dL Normal [...] Normal 0.0 - 2.0 % [facility] Basophils/Leukocyte s Auto (Bld) [Pure # fraction] 0.0 E9/L Normal 0.0 - 0.2 E9/L [facility] Eosinophils/100 WBC (Bld) 2.2 % Normal [...] 5.8 E9/L Normal 4.0 - 11.0 E9/L [facility] HemeAutoSS AMYLASEon 06-09-2022 Amylase [Catalytic activity/Vol] 41 U/L Normal 25-115 [facility] Comment on above: Performed By: #### G RUBIN, LIPID #### [facility] [address] [place] [address] Dr. Stephan Tavares CBC AUTO DIFFon 06-09-2022 BASO # 0.0 103/ul Normal 0.0-0.1 [facility] Comment on above: Performed By: #### G RUBIN, LIPID #### [facility] [address] [place] [address] Dr. Stephan Tavares Basophils/100 WBC (Bld) 0.7 % Normal 0.2-2.0 [facility] Comment on above: Performed By: #### G RUBIN, LIPID #### [facility] [address] [place] [address] Dr. Stephan Tavares EO # 0.1 103/ul Normal 0.0-0.7 [facility] Comment on above: Performed By: #### G RUBIN, LIPID #### [facility] [address] [place] [address] Dr. Stephan Tavares Eosinophils/100 WBC (Bld) 1.5 % Normal 0.9-7.0 [facility] Comment on above: Performed By: #### G RUBIN, LIPID #### [facility] [address] [place] [address] Dr. Stephan Tavares Erythrocyte distribution width (RBC) [Ratio] 13.1 % Normal 11.0-15.0 [facility] Comment on above: Performed By: #### G RUBIN, LIPID #### [facility] [address] [place] [address] Dr. Stephan Tavares Hematocrit (Bld) [Volume fraction] 43.2 % Normal 36.0-48.0 [facility] Comment on above: Performed By: #### G RUBIN, LIPID #### [facility] [address] [place] [address] Dr. Stephan Tavares Hemoglobin (Bld) [Mass/Vol] 14.6 g/dL Normal 12.0-16.0 [facility] Comment on above: Performed By: #### G RUBIN, LIPID #### [facility] [address] [place] [address] Dr. Stephan Tavares IG # 0.01 10e3/ul Normal 0.00-0.03 [facility] Comment on above: Performed By: #### G RUBIN, LIPID #### [facility] [address] [place] [address] Dr. Stephan Tavares IG % 0.2 % Normal 0.0-0.5 [facility] Comment on above: Performed By: #### G RUBIN, LIPID #### [facility] [address] [place] [address] Dr. Stephan Tavares LYMPH # 2.1 103/ul Normal 1.2-3.8 [facility] Comment on above: Performed By: #### G RUBIN, LIPID #### [facility] [address] [place] [address] Dr. Stephan Tavares Lymphocytes/100 WBC (Bld) 39.1 % Normal 20.5-60.0 [facility] Comment on above: Performed By: #### G RUBIN, LIPID #### [facility] [address] [place] [address] Dr. Stephan Tavares MANUAL DIFF REQ NO Normal [facility] Comment on above: Performed By: #### G RUBIN, LIPID #### [facility] [address] [place] [address] Dr. Stephan Tavares MCH (RBC) [Entitic mass] 30.2 pg Normal 26.7-34.0 [facility] Comment on above: Performed By: #### G RUBIN, LIPID #### [facility] [address] [place] [address] Dr. Stephan Tavares MCHC (RBC) [Mass/Vol] 33.8 g/dL Normal 29.9-35.2 [facility] Comment on above: Performed By: #### G RUBIN, LIPID #### [facility] [address] [place] [address] Dr. Stephan Tavares MCV (RBC) [Entitic vol] 89.3 fL Normal 81.0-99.0 [facility] Comment on above: Performed By: #### G RUBIN, LIPID #### [facility] [address] [place] [address] Dr. Stephan Tavares MONO # 0.3 103/ul Normal 0.3-0.8 [facility] Comment on above: Performed By: #### G RUBIN, LIPID #### [facility] [address] [place] [address] Dr. Stephan Tavares Monocytes/100 WBC (Bld) 5.2 % Normal 1.7-12.0 [facility] Comment on above: Performed By: #### G RUBIN, LIPID #### [facility] [address] [place] [address] Dr. Stephan Tavares NEUT # 2.9 103/ul Normal 1.4-6.5 [facility] Comment on above: Performed By: #### G RUBIN, LIPID #### [facility] [address] [place] [address] Dr. Stephan Tavares Neutrophils/100 WBC (Bld) 53.3 % Normal 43.0-75.0 [facility] Comment on above: Performed By: #### G RUBIN, LIPID #### [facility] [address] [place] [address] Dr. Stephan Tavares Platelet mean volume (Bld) [Entitic vol] 10.9 fL Normal 9.5-13.5 [facility] Comment on above: Performed By: #### G RUBIN, LIPID #### [facility] [address] [place] [address] Dr. Stephan Tavares PLT 271 103/ul Normal 150-450 [facility] Comment on above: Performed By: #### G RUBIN, LIPID #### [facility] [address] [place] [address] Dr. Stephan Tavares RBC 4.84 106/ul Normal 4.20-5.40 [facility] Comment on above: Performed By: #### G RUBIN, LIPID #### [facility] [address] [place], [place] [address] Dr. Stephan Tavares WBC 5.4 103/ul Normal 4.0-11.0 [facility] Comment on above: Performed By: #### G RUBIN, LIPID #### [facility] [address] [place], [place] [address] ABD/PELVIS WO CONon [...] ALVERTO PHAM Date: 2022-06-09 16:14 Normal [facility] ER URINE PROFILEon 3 Bilirubin Ql (U) Negative Normal NEGATIVE [facility] Comment on above: Performed By: #### G RUBIN, LIPID #### [facility] [address] [place] [address] [address] Stephan Tavares Clarity (U) CLEAR Normal CLEAR [facility] Comment on above: Performed By: #### G RUBIN, LIPID #### [facility] [address] [place] [address] [address] Stephan Tavares Color (U) LT. YELLOW Normal YELLOW [facility] Comment on above: Performed By: #### G RUBIN, LIPID #### [facility] [address] [place] [address] [address] Stephan KUMAR A micrscopic examination will be performed if indicated. Normal [facility] Comment on above: Performed By: #### G RUBIN, LIPID #### [facility] [address] [place] [address] [address] Stephan Tavares Glucose Ql (U) Negative Normal NEGATIVE [facility] Comment on above: Performed By: #### G RUBIN, LIPID #### [facility] [address] [place] [address] [address] Stephan Tavares Hemoglobin Ql (U) Negative Normal NEGATIVE [facility] Comment on above: Performed By: #### G RUBIN, LIPID #### [facility] [address] [place] [address] [address] Stephan Tavares Ketones Ql (U) Negative Normal NEGATIVE [facility] Comment on above: Performed By: #### G RUBIN, LIPID #### [facility] [address] [place] [address] [address] Stephan Tavares LEUKOCYTES Negative Normal NEGATIVE [facility] Comment on above: Performed By: #### G RUBIN, LIPID #### [facility] [address] [place] [address] [address] Stephan Tavares Nitrite Ql (U) Negative Normal NEGATIVE [facility] Comment on above: Performed By: #### G RUBIN, LIPID #### [facility] [address] [place] [address] [address] Stephan Tavares pH (U) 7.5 [pH] Normal 5-9 [facility] Comment on above: Performed By: #### G RUBIN, LIPID #### [facility] [address] [place] [address] Dr. Stephan Tavares SPEC GRAVITY 1.015 Normal 1.005-<=1.025 [facility] Comment on above: Performed By: #### G RUBIN, LIPID #### [facility] [address] [place] [address] [address] Stephan Tavares UA PROTEIN Negative Normal NEGATIVE/ TRACE [facility] Comment on above: Performed By: #### G RUBIN, LIPID #### [facility] [address] [place] [address] Dr. Stephan Tavares UR MICRO IND NOT INDICATED Normal [facility] Comment on above: Performed By: #### G RUBIN, LIPID #### [facility] [address] [place] [address] Dr. Stephan Tavares Urobilinogen Qn (U) 0.2 {Munir'U}/dL Normal 0.2 - 1. 0 [facility] Comment on above: Performed By: #### G RUBIN, LIPID #### [facility] [address] [place] [address] Dr. Stephan Tavares LIPASEon 06-09-2022 Lipase [Catalytic activity/Vol] 120.0 U/L Normal 73.0-393.0 [facility] Comment on above: Performed By: #### G RUBIN, LIPID #### [facility] [address] [place] [address] Dr. Stephan Tavares PROF 14(COMP METB)on 023 Albumin [Mass/Vol] 4.4 g/dL Normal 3.4-5.0 [facility] Comment on above: Performed By: #### G RUBIN, LIPID #### [facility] [address] [place] [address] Dr. Stephan Tavares Albumin/Globulin [Mass ratio] 1.1 {ratio} Normal [facility] Comment on above: Performed By: #### G RUBIN, LIPID #### [facility] [address] [place] [address] Dr. Stephan Tavares ALP [Catalytic activity/Vol] 74 U/L Normal 46-116 [facility] Comment on above: Performed By: #### G RUBIN, LIPID #### [facility] [address] [place] [address] [address] Stephan Tavares ALT [Catalytic activity/Vol] 40 U/L Normal 14-59 [facility] Comment on above: Performed By: #### G RUBIN, LIPID #### [facility] [address] [place] [address] [address] Stephan Tavares Anion gap [Moles/Vol] 16.5 mmol/L Normal [facility] Comment on above: Performed By: #### G RUBIN, LIPID #### [facility] [address] [place] [address] [address] Stephan Tavares AST [Catalytic activity/Vol] 45 U/L Critically high 15-37 [facility] Comment on above: Performed By: #### G RUBIN, LIPID #### [facility] [address] [place] [address] [address] Stephan Tavares Bilirubin [Mass/Vol] 0.5 mg/dL Normal 0.2-1.0 [facility] Comment on above: Performed By: #### G RUBIN, LIPID #### [facility] [address] [place] [address] [address] Stephan Tavares Calcium [Mass/Vol] 9.3 mg/dL Normal 8.5-10.1 [facility] Comment on above: Performed By: #### G RUBIN, LIPID #### [facility] [address] [place] [address] [address] Stephan Tavares Chloride [Moles/Vol] 103 mmol/L Normal 98-107 [facility] Comment on above: Performed By: #### G RUBIN, LIPID #### [facility] [address] [place] [address] [address] Stephan Tavares CO2 [Moles/Vol] 24.9 mmol/L Normal 21.0-32.0 [facility] Comment on above: Performed By: #### G RUBIN, LIPID #### [facility] [address] [place] [address] [address] Stephan Tavares Creatinine [Mass/Vol] 0.88 mg/dL Normal 0.55-1.02 [facility] Comment on above: Performed By: #### G RUBIN, LIPID #### [facility] [address] [place] [address] [address] Stephan Tavares EGFR-AF NORWEGIAN >60 Normal >=60 [facility] Comment on above: Performed By: #### G RUBIN, LIPID #### [facility] [address] [place] [address] [address] Stephan Tavares EGFR-NON AF [place]WEGIAN >60 Normal >=60 [facility] Comment on above: Performed By: #### G RUBIN, LIPID #### [facility] [address] [place] [address] [address] Stephan Tavares Globulin (S) [Mass/Vol] 3.9 g/dL Normal [facility] Comment on above: Performed By: #### G RUBIN, LIPID #### [facility] [address] [place] [address] [address] Stephan Tavares Glucose [Mass/Vol] 79 mg/dL Normal 74-106 [facility] Comment on above: Performed By: #### G RUBIN, LIPID #### [facility] [address] [place] [address] [address] Stephan Tavares Potassium [Moles/Vol] 3.4 mmol/L Critically low 3.5-5.1 [facility] Comment on above: Performed By: #### G RUBIN, LIPID #### [facility] [address] [place] [address] [address] Stephan Tavares Protein [Mass/Vol] 8.3 g/dL Critically high 6.4-8.2 [facility] Comment on above: Performed By: #### G RUBIN, LIPID #### [facility] [address] [place] [address] [address] Stephan Tavares Sodium [Moles/Vol] 141 mmol/L Normal 136-145 [facility] Comment on above: Performed By: #### G RUBIN, LIPID #### [facility] [address] [place] [address] [address] Stephan Tavares Urea nitrogen [Mass/Vol] 10.0 mg/dL Normal 7.0-18.0 [facility] Comment on above: Performed By: #### G RUBIN, LIPID #### [facility] [address] [place] [address] [address] Stephan Tavares Urea nitrogen/Creatinine [Mass ratio] 11.4 mg/mg Normal [facility] Comment on above: Performed By: #### G RUBIN, LIPID #### [facility] [address] [place] [address] [address] Stephan Tavares US PELVIS TRANSVAGon 023 [...] ALVERTO PHAM Date: 2022-06-09 17:04 Normal [facility] HLA B 27on 05-28-2022 HLA-B27 Negative Normal [facility] Comment on above: Result Comment: HLA- B*27 Negative B27 allele interpretation for all loci based on IMGT/HLA database version 3.44 This test was developed and its performance characteristics determined by [facility]. It has not been cleared or approved by the Food and Drug Administration. [facility] CLIA ID Number [id number] . This test was performed using PCR (Polymerase Chain Reaction)/SSOP (Sequence Specific Oligonucleotide Probes) technique. SBT (Sequence Based Typing) and/or SSP (Sequence Specific Primers) may be used as supplemental methods when necessary. Please contact [facility] Customer Service at if you have any questions. . Director of [facility] Laboratory Dr Tino Sampson, PhD Performed By: #### B MP, MG #### [facility] [address] [place] [address] [address] Stephan Tavares LYME DISEASE, WESTERN BLOTon 05-27-2022 IgG P18 Ab. Absent [facility] Comment on above: Performed By: #### B MP, MG #### [facility] [address] [place] [address] Dr. Stephan Tavares IgG P23 Ab. Absent [facility] Comment on above: Performed By: #### B MP, MG #### [facility] [address] [place] [address] Dr. Stephan Tavares IgG P28 Ab. Absent [facility] Comment on above: Performed By: #### B MP, MG #### [facility] [address] [place] [address] Dr. Stephan Tavares IgG P30 Ab. Absent [facility] Comment on above: Performed By: #### B MP, MG #### [facility] [address] [place] [address] Dr. Stephan Tavares IgG P39 Ab. Absent [facility] Comment on above: Performed By: #### B MP, MG #### [facility] [address] [place] [address] Dr. Stephan Tavares IgG P41 Ab. Present Abnormal [facility] Comment on above: Performed By: #### B MP, MG #### [facility] [address] [place] [address] Dr. Stephan Tavares IgG P45 Ab. Absent [facility] Comment on above: Performed By: #### B MP, MG #### [facility] [address] [place] [address] Dr. Stephan Tavares IgG P58 Ab. Absent [facility] Comment on above: Performed By: #### B MP, MG #### [facility] [address] [place] [address] Dr. Stephan Tavares IgG P66 Ab. Absent [facility] Comment on above: Performed By: #### B MP, MG #### [facility] [address] [place] [address] Dr. Stephan Tavares IgG P93 Ab. Absent [facility] Comment on above: Performed By: #### B MP, MG #### [facility] [address] [place] [address] [address] Stephan Tavares IgM P23 Ab. Present Abnormal [facility] Comment on above: Performed By: #### B MP, MG #### [facility] [address] [place] [address] [address] Stephan Tavares IgM P39 Ab. Absent Normal [facility] Comment on above: Performed By: #### B MP, MG #### [facility] [address] [place] [address] Dr. Stephna Tavares IgM P41 Ab. Present Abnormal [facility] Comment on above: Performed By: #### B MP, MG #### [facility] [address] [place] [address] Dr. Stephan Tavares Lyme IgG WB Interp. Negative Normal [facility] Comment on above: Result Comment: Posi tive: 5 of the following Borrelia-specific bands: 18,23,28,30,39,41,45,58, 66, and 93. Negative: No bands or banding patterns which do not meet positive criteria. Performed By: #### B MP, MG #### [facility] [address] [place] [address] Dr. Stephan Tavares Lyme IgM WB Interp. Positive Abnormal [facility] Comment on above: Result Comment: Note [...] are those recommended by CDC/ASTPHLD. p23=Osp C, a53=[id number] . Note: Sera from individuals with the following may cross react in the Lyme Line Blot assays: other spirochetal diseases (periodontal disease, leptospirosis, relapsing fever, yaws, and pinta); connective autoimmune (Rheumatoid Arthritis and Systemic Lupus Erythematosus and also individuals with Antinuclear Antibody); other infections ([place] Spotted Fever; Prabhakar-Rangel Virus, and Cytomegalovirus). . . Please Note: Lyme immunoblot alone is not recommended for the diagnosis of Lyme disease. Current guidelines recommend the use of a two-tiered approach to Lyme serology testing to improve the sensitivity and specificity of testing. [facility] 267103 Lyme Disease Serology with Reflex to aid in the diagnosis of Lyme Disease. Performed By: #### B MP, MG #### [facility] [address] [place] [address] Dr. Stephan Tavares MISAEL EIA W/REFLEX 9 BIOMARKER Son 05-25-2022 MISAEL Direct Negative Normal Negative [facility] Comment on above: Performed By: #### A [id number] #### [facility] [address] [place] [address] Dr. Stephan Tavares SLE PROFILE Aon 05-25-2022 Anti-DNA (DS) Ab Qn 2 IU/mL Normal 0-9 [facility] Comment on above: Result Comment: Nega tive <5 Equivocal 5 - 9 Positive >9 Performed By: #### S RONALDO #### [facility] [address] [place] [address] Dr. Stephan Tavares Antichromatin Antibodies <0.2 Normal 0.0-0.9 [facility] Comment on above: Performed By: #### S RONALDO #### [facility] [address] [place] [address] Dr. Stephan Tavares RA Latex Turbid. <10.0 Normal <14.0 [facility] Comment on above: Performed By: #### S RONALDO #### [facility] [address] [place] [address] Dr. Stephan Tavares ELECTRICAL CONTACTS ADJUSTER Antibodies 0.3 AI Normal 0.0-0.9 [facility] Comment on above: Performed By: #### S RONALDO #### [facility] [address] [place] [address] Dr. Stephan Tavares Sjogren's Anti-SS-A <0.2 Normal 0.0-0.9 [facility] Comment on above: Performed By: #### S RONALDO #### [facility] [address] [place] [address] Dr. Stephan Tavares Sjogren's Anti-SS-B <0.2 Normal 0.0-0.9 [facility] Comment on above: Performed By: #### S RONALDO #### [facility] [address] [place] [address] Dr. Stephan Tavares Mc Antibodies <0.2 Normal 0.0-0.9 [facility] Comment on above: Performed By: #### S RONALDO #### [facility] [address] [place] [address] Dr. Stephan Tavares CBC AUTO DIFFon 05-22-2022 BASO # 0.0 103/ul Normal 0.0-0.1 [facility] Comment on above: Performed By: #### C BC #### [facility] [address] [place] [address] Dr. Stephan Tavares Basophils/100 WBC (Bld) 1.0 % Normal 0.2-2.0 [facility] Comment on above: Performed By: #### C BC #### [facility] [address] [place] [address] Dr. Stephan Tavares EO # 0.1 103/ul Normal 0.0-0.7 [facility] Comment on above: Performed By: #### C BC #### [facility] [address] [place] [address] Dr. Stephan Tavares Eosinophils/100 WBC (Bld) 1.3 % Normal 0.9-7.0 [facility] Comment on above: Performed By: #### C BC #### [facility] [address] [place] [address] Dr. Stephan Tavares Erythrocyte distribution width (RBC) [Ratio] 13.3 % Normal 11.0-15.0 [facility] Comment on above: Performed By: #### C BC #### [facility] [address] [place] [address] Dr. Stephan Tavares Hematocrit (Bld) [Volume fraction] 36.7 % Normal 36.0-48.0 [facility] Comment on above: Performed By: #### C BC #### [facility] [address] [place] [address] Dr. Stephan Tavares Hemoglobin (Bld) [Mass/Vol] 12.6 g/dL Normal 12.0-16.0 [facility] Comment on above: Performed By: #### C BC #### [facility] [address] [place] [address] Dr. Stephan Tavares IG # 0.00 10e3/ul Normal 0.00-0.03 [facility] Comment on above: Performed By: #### C BC #### [facility] [address] [place] [address] Dr. Stephan Tavares IG % 0.0 % Normal 0.0-0.5 [facility] Comment on above: Performed By: #### C BC #### [facility] [address] [place] [address] Dr. Stephan Tavares LYMPH # 1.2 103/ul Normal 1.2-3.8 [facility] Comment on above: Performed By: #### C BC #### [facility] [address] [place] [address] Dr. Stephan Tavares Lymphocytes/100 WBC (Bld) 30.9 % Normal 20.5-60.0 [facility] Comment on above: Performed By: #### C BC #### [facility] [address] [place] [address] Dr. Stephan Tavares MANUAL DIFF REQ NO Normal [facility] Comment on above: Performed By: #### C BC #### [facility] [address] [place] [address] Dr. Stephan Tavares MCH (RBC) [Entitic mass] 30.6 pg Normal 26.7-34.0 [facility] Comment on above: Performed By: #### C BC #### [facility] [address] [place] [address] Dr. Stephan Tavares MCHC (RBC) [Mass/Vol] 34.3 g/dL Normal 29.9-35.2 [facility] Comment on above: Performed By: #### C BC #### [facility] [address] [place] [address] Dr. Stephan Tavares MCV (RBC) [Entitic vol] 89.1 fL Normal 81.0-99.0 [facility] Comment on above: Performed By: #### C BC #### [facility] [address] [address] [address] Stephan Tavares MONO # 0.2 103/ul Critically low 0.3-0.8 [facility] Comment on above: Performed By: #### C BC #### [facility] [address] [address] [address] Stephan Tavares Monocytes/100 WBC (Bld) 5.9 % Normal 1.7-12.0 [facility] Comment on above: Performed By: #### C BC #### [facility] [address] [place] [address] Dr. Stephan Tavares NEUT # 2.4 103/ul Normal 1.4-6.5 [facility] Comment on above: Performed By: #### C BC #### [facility] [address] [place] [address] Dr. Stephan Tavares Neutrophils/100 WBC (Bld) 60.9 % Normal 43.0-75.0 [facility] Comment on above: Performed By: #### C BC #### [facility] [address] [place] [address] Dr. Stephan Tavares Platelet mean volume (Bld) [Entitic vol] 10.9 fL Normal 9.5-13.5 [facility] Comment on above: Performed By: #### C BC #### [facility] [address] [place] [address] Dr. Stephan Tavares PLT 250 103/ul Normal 150-450 [facility] Comment on above: Performed By: #### C BC #### [facility] [address] [place] [address] Dr. Stephan Tavares RBC 4.12 106/ul Critically low 4.20-5.40 [facility] Comment on above: Performed By: #### C BC #### [facility] [address] [place] [address] Dr. Stephan Tavares WBC 3.9 103/ul Critically low 4.0-11.0 [facility] Comment on above: Performed By: #### C BC #### [facility] [address] [place] [address] Dr. Stephan Tavares CRPon 05-22-2022 CRP [Mass/Vol] mg/L Normal <=1.0 [facility] Comment on above: Performed By: #### G RUBIN, LIPID #### [facility] [address] [place] [address] Dr. Stephan Tavares SED RATE WESTERGRENon 2022 SED RATE 4 mm/hr Normal <=20 [facility] Comment on above: Performed By: #### S EDR #### [facility] [address] [place] [address] Dr. Stephan Tavares URIC ACID SERUMon 05-22-2022 Urate [Mass/Vol] 4.5 mg/dL Normal 2.6-6.0 [facility] Comment on above: Performed By: #### G RUBIN, LIPID #### [facility] [address] [place] [address] Dr. Stephan Tavares EGD - THERAPEUTIC, EUS, OR T UBE INTERVENTIONSon 03-06-2022 [facility] US PELVIS AND TRANSVAGon US PELVIS [...] BALDOMERO MARCELO Date: 2022-03-03 16:24 Normal [facility] CBC AUTO DIFFon 02-17-2022 BASO # 0.0 103/ul Normal 0.0-0.1 [facility] Comment on above: Performed By: #### G RUBIN, LIPID #### [facility] [address] [place] [address] Dr. Stephan Tavares Basophils/100 WBC (Bld) 0.8 % Normal 0.2-2.0 [facility] Comment on above: Performed By: #### G RUBIN, LIPID #### [facility] [address] [place] [address] Dr. Stephan Tavares EO # 0.1 103/ul Normal 0.0-0.7 [facility] Comment on above: Performed By: #### G RUBIN, LIPID #### [facility] [address] [place] [address] Dr. Stephan Tavares Eosinophils/100 WBC (Bld) 2.0 % Normal 0.9-7.0 [facility] Comment on above: Performed By: #### G RUBIN, LIPID #### [facility] [address] [place] [address] Dr. Stephan Tavares Erythrocyte distribution width (RBC) [Ratio] 13.2 % Normal 11.0-15.0 [facility] Comment on above: Performed By: #### G RUBIN, LIPID #### [facility] [address] [place] [address] Dr. Stephan Tavares Hematocrit (Bld) [Volume fraction] 36.2 % Normal 36.0-48.0 [facility] Comment on above: Performed By: #### G RUBIN, LIPID #### [facility] [address] [place] [address] Dr. Stephan Tavares Hemoglobin (Bld) [Mass/Vol] 12.6 g/dL Normal 12.0-16.0 [facility] Comment on above: Performed By: #### G RUBIN, LIPID #### [facility] [address] [place] [address] Dr. Stephan Tavares IG # 0.00 10e3/ul Normal 0.00-0.03 [facility] Comment on above: Performed By: #### G RUBIN, LIPID #### [facility] [address] [place] [address] Dr. Stephan Tavares IG % 0.0 % Normal 0.0-0.5 [facility] Comment on above: Performed By: #### G RUBIN, LIPID #### [facility] [address] [place] [address] Dr. Stephan Tavares LYMPH # 2.3 103/ul Normal 1.2-3.8 [facility] Comment on above: Performed By: #### G RUBIN, LIPID #### [facility] [address] [place] [address] Dr. Stephan Tavares Lymphocytes/100 WBC (Bld) 46.3 % Normal 20.5-60.0 [facility] Comment on above: Performed By: #### G RUBIN, LIPID #### [facility] [address] [place] [address] Dr. Stephan Tavares MANUAL DIFF REQ NO Normal [facility] Comment on above: Performed By: #### G RUBIN, LIPID #### [facility] [address] [place] [address] Dr. Stephan Tavares MCH (RBC) [Entitic mass] 29.2 pg Normal 26.7-34.0 [facility] Comment on above: Performed By: #### G RUBIN, LIPID #### [facility] [address] [place] [address] Dr. Stephan Tavares MCHC (RBC) [Mass/Vol] 34.8 g/dL Normal 29.9-35.2 [facility] Comment on above: Performed By: #### G RUBIN, LIPID #### [facility] [address] [place] [address] Dr. Stephan Tavares MCV (RBC) [Entitic vol] 84.0 fL Normal 81.0-99.0 [facility] Comment on above: Performed By: #### G RUBIN, LIPID #### [facility] [address] [place] [address] Dr. Stephan Tavares MONO # 0.4 103/ul Normal 0.3-0.8 [facility] Comment on above: Performed By: #### G RUBIN, LIPID #### [facility] [address] [place] [address] Dr. Stephan Tavares Monocytes/100 WBC (Bld) 8.7 % Normal 1.7-12.0 [facility] Comment on above: Performed By: #### G RUBIN, LIPID #### [facility] [address] [place] [address] Dr. Stephan Tavares NEUT # 2.1 103/ul Normal 1.4-6.5 [facility] Comment on above: Performed By: #### G RUBIN, LIPID #### [facility] [address] [place] [address] Dr. Stephan Tavares Neutrophils/100 WBC (Bld) 42.2 % Critically low 43.0-75.0 [facility] Comment on above: Performed By: #### G RUBIN, LIPID #### [facility] [address] [place] [address] Dr. Stephan Tavares Platelet mean volume (Bld) [Entitic vol] 11.1 fL Normal 9.5-13.5 [facility] Comment on above: Performed By: #### G RUBIN, LIPID #### [facility] [address] [place] [address] Dr. Stephan Tavares PLT 228 103/ul Normal 150-450 [facility] Comment on above: Performed By: #### G RUBIN, LIPID #### [facility] [address] [place] [address] Dr. Stephan Tavares RBC 4.31 106/ul Normal 4.20-5.40 [facility] Comment on above: Performed By: #### G RUBIN, LIPID #### [facility] [address] [place] [address] Dr. Stephan Tavares WBC 5.1 103/ul Normal 4.0-11.0 [facility] Comment on above: Performed By: #### G RUBIN, LIPID #### [facility] [address] [place] [address] Dr. Stephan Tavares MAGNESIUMon 02-17-2022 Magnesium [Mass/Vol] 1.8 mg/dL Normal 1.8-2.4 [facility] Comment on above: Performed By: #### B MP, MG #### [facility] [address] [place] [address] Dr. Stephan Tavares PROF CHEM 8 (BAS METB)on Anion gap [Moles/Vol] 16.1 mmol/L Normal [facility] Comment on above: Performed By: #### B MP, MG #### [facility] [address] [place] [address] Dr. Stephan Tavares Calcium [Mass/Vol] 8.7 mg/dL Normal 8.5-10.1 [facility] Comment on above: Performed By: #### B MP, MG #### [facility] [address] [place] [address] Dr. Stephan Tavares Chloride [Moles/Vol] 104 mmol/L Normal 98-107 [facility] Comment on above: Performed By: #### B MP, MG #### [facility] [address] [place] [address] Dr. Stephan Tavares CO2 [Moles/Vol] 22.0 mmol/L Normal 21.0-32.0 [facility] Comment on above: Performed By: #### B MP, MG #### [facility] [address] [place] [address] Dr. Stephan Tavares Creatinine [Mass/Vol] 0.74 mg/dL Normal 0.55-1.02 [facility] Comment on above: Performed By: #### B MP, MG #### [facility] [address] [place] [address] Dr. Stephan Tavares EGFR-AF NORWEGIAN >60 Normal >=60 [facility] Comment on above: Performed By: #### B MP, MG #### [facility] [address] [place] [address] Dr. Stephan Tavares EGFR-NON AF [place]WEGIAN >60 Normal >=60 [facility] Comment on above: Performed By: #### B MP, MG #### [facility] [address] [place] [address] Dr. Stephan Tavares Glucose [Mass/Vol] 88 mg/dL Normal 74-106 [facility] Comment on above: Performed By: #### B MP, MG #### [facility] [address] [place] [address] Dr. Stephan Tavares Potassium [Moles/Vol] 4.1 mmol/L Normal 3.5-5.1 [facility] Comment on above: Result Comment: spec imen hemolysed. result could be spurious. suggest repeat. Performed By: #### B MP, MG #### [facility] [address] [place] [address] Dr. Stephan Tavares Sodium [Moles/Vol] 138 mmol/L Normal 136-145 [facility] Comment on above: Performed By: #### B MP, MG #### [facility] [address] [address] [address] Stephan Tavares Urea nitrogen [Mass/Vol] 12.0 mg/dL Normal 7.0-18.0 [facility] Comment on above: Performed By: #### B MP, MG #### [facility] [address] [address] [address] Stephan Tavares Urea nitrogen/Creatinine [Mass ratio] 16.2 mg/mg Normal [facility] Comment on above: Performed By: #### B MP, MG #### [facility] [address] [address] [address] Stephan Tavares Basic metabolic 2000 panelon 01-28-2022 Anion gap [Moles/Vol] 10 mmol/L 9 - 18 mmol/L [facility] Calcium [Mass/Vol] 9.3 mg/dL 8.5 - 10.2 mg/dL [facility] Chloride [Moles/Vol] 105 mmol/L 97 - 105 mmol/L [facility] CO2 [Moles/Vol] 22 mmol/L 22 - 30 mmol/L [facility] Creatinine [Mass/Vol] 0.68 mg/dL 0.58 - 0.96 mg/dL [facility] Estimated Glomerular Filtration Rate 119 mL/min/1.73m >=60 mL/min/1.73m [facility] Glucose [Mass/Vol] 77 mg/dL 74 - 99 mg/dL [facility] Potassium [Moles/Vol] 4.3 mmol/L 3.7 - 5.1 mmol/L [facility] Sodium [Moles/Vol] 137 mmol/L 136 - 144 mmol/L [facility] Urea nitrogen [Mass/Vol] 9 mg/dL 7 - 21 mg/dL [facility] CBC panel Auto (Bld)on 01-28 Erythrocyte distribution width (RBC) [Ratio] 13.3 % 11.5 - 15.0 % [facility] Hematocrit (Bld) [Volume fraction] 42.9 % 36.0 - 46.0 % [facility] Hemoglobin (Bld) [Mass/Vol] 14.6 g/dL 11.5 - 15.5 g/dL [facility] MCH (RBC) [Entitic mass] 29.8 pg 26.0 - 34.0 pg [facility] MCHC (RBC) [Mass/Vol] 34.0 g/dL 30.5 - 36.0 g/dL [facility] MCV (RBC) [Entitic vol] 87.6 fL 80.0 - 100.0 fL [facility] Nucleated RBC (Bld) [#/Vol] <0.01 k/uL [facility] Platelet mean volume (Bld) [Entitic vol] 11.4 fL 9.0 - 12.7 fL [facility] Platelets (Bld) [#/Vol] 247 10*3/uL 150 - 400 k/uL [facility] RBC (Bld) [#/Vol] 4.90 10*6/uL 3.90 - 5.20 m/uL [facility] WBC (Bld) [#/Vol] 4.05 10*3/uL 3.70 - 11.00 k/u L [facility] EKGon 01-28-2022 Atrial Rate 61 BPM [facility] Calculated P [place] 76 degrees [facility] Calculated R [place] 73 degrees [facility] Calculated T [place] 57 degrees [facility] P-R Interval 144 ms [facility] QRS Duration 86 ms [facility] QT Interval 424 ms [facility] QTC Calculation (Bazett) 426 ms [facility] Ventricular Rate 61 BPM [facility] TYPE AND SCREEN,30 DAYon ABO O [facility] HIstorical Ab Scr Status Negative [facility] Rh Nom (Bld) Positive [facility] EGD - THERAPEUTIC, EUS, OR T UBE INTERVENTIONSon 12-25-2021 [facility] METANEPHRINES PLASMA FREEon 11-01-2021 Metanephrine, Pl <10.0 Normal 0.0-88.0 [facility] Comment on above: Performed By: #### G RUBIN, LIPID #### [facility] [address] [address] [address] Stephan Tavares Normetanephrine, Pl 19.4 pg/mL Normal 0.0-210.1 [facility] Comment on above: Performed By: #### G RUBIN, LIPID #### [facility] [address] [place] [address] Dr. Stephan Tavares CORTISOLon 10-28-2021 Cortisol 4.6 ug/dL Normal [facility] Comment on above: Result Comment: Wesley isol AM 6.2 - 19.4 Cortisol PM 2.3 - 11.9 Performed By: #### C ORTISO #### [facility] [address] [place] [address] Dr. Stephan Tavares CBC AUTO DIFFon 10-27-2021 BASO # 0.0 103/ul Normal 0.0-0.1 [facility] Comment on above: Performed By: #### G RUBIN, LIPID #### [facility] [address] [place] [address] Dr. Stephan Tavares Basophils/100 WBC (Bld) 0.5 % Normal 0.2-2.0 [facility] Comment on above: Performed By: #### G RUBIN, LIPID #### [facility] [address] [place] [address] Dr. Stephan Tavares EO # 0.0 103/ul Normal 0.0-0.7 [facility] Comment on above: Performed By: #### G RUBIN, LIPID #### [facility] [address] [place] [address] Dr. Stephan Tavares Eosinophils/100 WBC (Bld) 0.5 % Critically low 0.9-7.0 [facility] Comment on above: Performed By: #### G RUBIN, LIPID #### [facility] [address] [place] [address] Dr. Stephan Tavares Erythrocyte distribution width (RBC) [Ratio] 12.8 % Normal 11.0-15.0 [facility] Comment on above: Performed By: #### G RUBIN, LIPID #### [facility] [address] [place] [address] Dr. Stephan Tavares Hematocrit (Bld) [Volume fraction] 37.5 % Normal 36.0-48.0 [facility] Comment on above: Performed By: #### G RUBIN, LIPID #### [facility] [address] [place] [address] Dr. Stephan Tavares Hemoglobin (Bld) [Mass/Vol] 12.9 g/dL Normal 12.0-16.0 [facility] Comment on above: Performed By: #### G RUBIN, LIPID #### [facility] [address] [place] [address] Dr. Stephan Tavares IG # 0.01 10e3/ul Normal 0.00-0.03 [facility] Comment on above: Performed By: #### G RUBIN, LIPID #### [facility] [address] [place] [address] Dr. Stephan Tavares IG % 0.2 % Normal 0.0-0.5 [facility] Comment on above: Performed By: #### G RUBIN, LIPID #### [facility] [address] [place] [address] Dr. Stephan Tavares LYMPH # 1.9 103/ul Normal 1.2-3.8 [facility] Comment on above: Performed By: #### G RUBIN, LIPID #### [facility] [address] [place] [address] Dr. Stephan Tavares Lymphocytes/100 WBC (Bld) 34.6 % Normal 20.5-60.0 [facility] Comment on above: Performed By: #### G RUBIN, LIPID #### [facility] [address] [place] [address] Dr. Stephan Tavares MANUAL DIFF REQ NO Normal [facility] Comment on above: Performed By: #### G RUBIN, LIPID #### [facility] [address] [place] [address] Dr. Stephan Tavares MCH (RBC) [Entitic mass] 30.3 pg Normal 26.7-34.0 [facility] Comment on above: Performed By: #### G RUBIN, LIPID #### [facility] [address] [place] [address] Dr. Stephan Tavares MCHC (RBC) [Mass/Vol] 34.4 g/dL Normal 29.9-35.2 [facility] Comment on above: Performed By: #### G RUBIN, LIPID #### [facility] [address] [place] [address] Dr. Stephan Tavares MCV (RBC) [Entitic vol] 88.0 fL Normal 81.0-99.0 [facility] Comment on above: Performed By: #### G RUBIN, LIPID #### [facility] [address] [place] [address] Dr. Stephan Tavares MONO # 0.4 103/ul Normal 0.3-0.8 [facility] Comment on above: Performed By: #### G RUBIN, LIPID #### [facility] [address] [place] [address] Dr. Stephan Tavares Monocytes/100 WBC (Bld) 6.6 % Normal 1.7-12.0 [facility] Comment on above: Performed By: #### G RUBIN, LIPID #### [facility] [address] [place] [address] Dr. Stephan Tavares NEUT # 3.2 103/ul Normal 1.4-6.5 [facility] Comment on above: Performed By: #### G RUBIN, LIPID #### [facility] [address] [place] [address] Dr. Stephan Tavares Neutrophils/100 WBC (Bld) 57.6 % Normal 43.0-75.0 [facility] Comment on above: Performed By: #### G RUBIN, LIPID #### [facility] [address] [place] [address] Dr. Stephan Tavares Platelet mean volume (Bld) [Entitic vol] 10.6 fL Normal 9.5-13.5 [facility] Comment on above: Performed By: #### G RUBIN, LIPID #### [facility] [address] [place] [address] Dr. Stephan Tavares PLT 249 103/ul Normal 150-450 [facility] Comment on above: Performed By: #### G RUBIN, LIPID #### [facility] [address] [place] [address] Dr. Stephan Tavares RBC 4.26 106/ul Normal 4.20-5.40 [facility] Comment on above: Performed By: #### G RUBIN, LIPID #### [facility] [facility] [address] [place] [address] Dr. Stephan Tavares WBC 5.6 103/ul Normal 4.0-11.0 [facility] Comment on above: Performed By: #### G RUBIN, LIPID #### [facility] [address] [place] [address] Dr. Stephan Tavares FREE T3on 10-27-2021 FREE T3 3.25 pg/mlL Normal 2.18-3.98 [facility] Comment on above: Performed By: #### G RUBIN, LIPID #### [facility] [address] [address] [address] Stephan Tavares FREE T4on 10-27-2021 Free T4 [Mass/Vol] 1.45 ng/dL Normal 0.76-1.46 [facility] Comment on above: Performed By: #### G RUBIN, LIPID #### [facility] [address] [place] [address] Dr. Stephan Tavares PROF CHEM 8 (BAS METB)on Anion gap [Moles/Vol] 13.1 mmol/L Normal [facility] Comment on above: Performed By: #### T SH, FT3, BMP #### [facility] [address] [address] [address] Stephan Tavares Calcium [Mass/Vol] 8.7 mg/dL Normal 8.5-10.1 [facility] Comment on above: Performed By: #### T SH, FT3, BMP #### [facility] [address] [place] [address] Dr. Stephan Tavares Chloride [Moles/Vol] 104 mmol/L Normal 98-107 [facility] Comment on above: Performed By: #### T SH, FT3, BMP #### [facility] [address] [address] [address] Stephan Tavares CO2 [Moles/Vol] 25.3 mmol/L Normal 21.0-32.0 [facility] Comment on above: Performed By: #### T SH, FT3, BMP #### [facility] [address] [address] [address] Stephan Tavares Creatinine [Mass/Vol] 0.69 mg/dL Normal 0.55-1.02 [facility] Comment on above: Performed By: #### T SH, FT3, BMP #### [facility] [address] [place] [address] Dr. Stephan Tavares EGFR-AF NORWEGIAN >60 Normal >=60 [facility] Comment on above: Performed By: #### T SH, FT3, BMP #### [facility] [address] [place] [address] Dr. Stephan Tavares EGFR-NON AF NORWEGIAN >60 Normal >=60 [facility] Comment on above: Performed By: #### T SH, FT3, BMP #### [facility] [address] [place] [address] Dr. Stephan Tavares Glucose [Mass/Vol] 87 mg/dL Normal 74-106 [facility] Comment on above: Performed By: #### T SH, FT3, BMP #### [facility] [address] [place] [address] Dr. Stephan Tavares Potassium [Moles/Vol] 3.4 mmol/L Critically low 3.5-5.1 [facility] Comment on above: Performed By: #### T SH, FT3, BMP #### [facility] [address] [place] [address] Dr. Stephan Tavares Sodium [Moles/Vol] 139 mmol/L Normal 136-145 [facility] Comment on above: Performed By: #### T SH, FT3, BMP #### [facility] [address] [place] [address] Dr. Stephan Tavares Urea nitrogen [Mass/Vol] 9.0 mg/dL Normal 7.0-18.0 [facility] Comment on above: Performed By: #### T SH, FT3, BMP #### [facility] [address] [place] [address] Dr. Stephan Tavares Urea nitrogen/Creatinine [Mass ratio] 13.0 mg/mg Normal [facility] Comment on above: Performed By: #### T SH, FT3, BMP #### [facility] [address] [place] [address] Dr. Stephan Tavares TSHon 10-27-2021 TSH Qn m[IU]/L Critically low 0.358-3.740 [facility] Comment on above: Performed By: #### G RUBIN LIPID #### [facility] [address] [address] [address] SINUSES WO CONon [...] by: ALVERTO PHAM Date: 2021-10-06 06:19 Normal [facility] Dental Nerve Blockon 08-30- 022 Pablo Atwood DO 08/30/2021 4:20 AM Dental Nerve Block Date/Time: 08/30/2021 4:19 AM Performed by: Pablo Atwood DO Authorized by: Pablo Atwood DO Consent: Consent obtained: Verbal Consent given by: Patient Risks, benefits, and alternatives were discussed: yes [place] protocol: Patient identity confirmed: Verbally with patient Indications: Indications: dental pain Location: Block type: Posterior superior alveolar Laterality: Left Procedure details: Syringe type: Controlled syringe Needle gauge: 27 G Anesthetic injected: Bupivacaine 0.5% WITH epi Post-procedure details: Outcome: Anesthesia achieved Procedure completion: Tolerated well, no immediate complications [facility] [employer] Work Phone: [facility] [employer] Phone: GLUCOSE BLOODon 08-21-2021 Glucose [Mass/Vol] 79 mg/dL Normal 74-106 [facility] Comment on above: Performed By: #### G RUBIN, LIPID #### [facility] [address] [address] [address] Stephan Tavares LIPID PROFILEon 08-21-2021 CHOL-HDL RATIO NORM SEE BELOW Normal [facility] Comment on above: Result Comment: 3.3 - 4.4 LOW RISK 4.4 - 7.1 AVERAGE RISK 7.1 - 11.0 MODERATE RISK >11.0 HIGH RISK Performed By: #### G RUBIN, LIPID #### [facility] [address] [address] [address] Stephan Tavares Cholesterol [Mass/Vol] 163 mg/dL Normal <=200 [facility] Comment on above: Performed By: #### G RUBIN, LIPID #### [facility] [address] [address] [address] Stephan Tavares Cholesterol in HDL [Mass/Vol] 71 mg/dL Critically high 40-60 [facility] Comment on above: Performed By: #### G RUBIN, LIPID #### [facility] [address] [address] [address] Stephan Tavares Cholesterol in LDL [Mass/Vol] 67.8 mg/dL Normal [facility] Comment on above: Performed By: #### G RUBIN, LIPID #### [facility] [address] [address] [address] Stephan Tavares Cholesterol.total/C holesterol in HDL [Mass ratio] 2.3 {ratio} Normal [facility] Comment on above: Performed By: #### G RUBIN, LIPID #### [facility] [address] [address] [address] Stephan Tavares HDL NORMAL > or = 60 mg/dl - LOW CARDIOVASCULAR RISK <40 mg/dl - HIGH CARDIOVASCULAR RISK Normal [facility] Comment on above: Performed By: #### G RUBIN, LIPID #### [facility] [address] [place], [place] [address] Dr. Stephan Tavares LDL CALC NORMAL SEE BELOW Normal [facility] Comment on above: Result Comment: <100 mg/dl OPTIMAL 100 - 129 mg/dl NEAR OR ABOVE OPTIMAL 130 - 159 mg/dl BORDERLINE HIGH 160 - 189 mg/dl HIGH >190 mg/dl VERY HIGH Performed By: #### G RUBIN, LIPID #### [facility] [address] [place], [place] [address] Dr. Stephan Tavares Triglyceride [Mass/Vol] 121 mg/dL Normal <=150 [facility] Comment on above: Performed By: #### G RUBIN, LIPID #### [facility] [address] [place], [place] [address] Dr. Stephan Tavares VLDL CALC 24.2 mg/dL Normal [facility] Comment on above: Performed By: #### G RUBIN, LIPID #### [facility] [address] [place], [place] [address] Dr. Stephan Tavares US SINGLE QUAD RT [...] account for patient's symptoms. Electronically authenticated by: ALVEROT PHAM Date: 2021-08-21 17:24 Normal [facility] XR SINUSES 3 VIEWS OR GREATE [...] ALVERTO PHAM Date: 2021-08-20 13:05 Normal [facility] Glucose - FINGER STICKon Glucose [Mass/Vol] 84 mg/dL [employer] Other VAGINITIS/VAGINOSIS DNA PROB Ryder 08-01-2021 Alea species Positive Abnormal Negative [facility] Comment on above: Performed By: #### G RUBIN, LIPID #### [facility] [address] [address] [address] Stephan Tavares Gardnerella vaginalis Negative Normal Negative [facility] Comment on above: Performed By: #### G RUBIN, LIPID #### [facility] [address] [address] [address] Stephan Tavares Trichomonas vaginalis Negative Normal Negative [facility] Comment on above: Performed By: #### G RUBIN, LIPID #### [facility] [address] [address] [address] Stephan Tavares APTTon 07-27-2021 aPTT Coag (Bld) [Time] 30.9 s [facility] Comment on above: IV Heparin Therapy Range: 62.0-94.0 CBC with Auto Differentialon 07-27-2021 Absolute Eos # 0.06 [facility] [employer] Absolute Immature Granulocyte <0.03 [facility] Absolute Lymph # 1.49 [facility] Absolute [place] # 0.27 [facility] Basophils (Bld) [#/Vol] 0.04 10*3/uL [facility] Basophils/100 WBC (Bld) 1 % 0 - 2 % [facility] Eosinophils/100 WBC (Bld) 1 % 1 - 4 % [facility] Hematocrit (Bld) [Volume fraction] 38.8 % 36.3 - 47.1 % [facility] Hemoglobin (Bld) [Mass/Vol] 12.7 g/dL 11.9 - 15.1 g/dL [facility] Immature granulocytes/100 WBC (Bld) 0 % 0 [facility] Interpretation and review of laboratory results Abnormal [facility] Lymphocytes/100 WBC (Bld) 36 % 24 - 43 % [facility] MCH (RBC) [Entitic mass] 28.9 pg 25.2 - 33.5 pg [facility] MCHC (RBC) [Mass/Vol] 32.7 g/dL 28.4 - 34.8 g/dL [facility] MCV (RBC) [Entitic vol] 88.4 fL 82.6 - 102.9 fL [facility] Monocytes/100 WBC (Bld) 6 % 3 - 12 % [facility] NRBC Automated 0.0 0.0 per 100 WBC [facility] Platelet distribution width (Bld) [Ratio] 14.5 % High 11.8 - 14.4 % [facility] Platelet mean volume (Bld) [Entitic vol] 10.8 fL 8.1 - 13.5 fL [facility] Platelets (Bld) [#/Vol] 251 10*3/uL [facility] RBC (Bld) [#/Vol] 4.39 10*6/uL 3.95 - 5.11 m/uL [facility] Segmented neutrophils/100 WBC (Bld) 56 % 36 - 65 % [facility] Segs Absolute 2.33 [facility] WBC (Bld) [#/Vol] 4.2 10*3/uL [facility] CT ABDOMEN PELVIS W IV CONTR AST [...] IMPRESSION: No acute abdominal or pelvic abnormality. [employer] [facility] Work Phone: Radiology Study observation (narrative) [facility] Phone: CT ABDOMEN PELVIS W IV CONTR AST Additional Contrast? NoneOrdered By: Devon Moura on 07-27-2021 [facility] Work Phone: Comprehensive Metabolic Pane l w/ Reflex to MGon 07-27-2021 Albumin [Mass/Vol] 4.7 g/dL 3.5 - 5.2 g/dL [facility] [employer] Albumin/Globulin [Mass ratio] 1.8 {ratio} [facility] [employer] ALP (Bld) [Catalytic activity/Vol] 62 U/L 35 - 104 U/L [facility] [employer] ALT [Catalytic activity/Vol] 14 U/L 5 - 33 U/L [facility] [employer] Anion gap [Moles/Vol] 11 mmol/L 9 - 17 mmol/L [facility] [employer] AST [Catalytic activity/Vol] 18 U/L <32 [facility] [employer] Bilirubin [Mass/Vol] 0.52 mg/dL 0.3 - 1.2 mg/dL [facility] [employer] Calcium [Mass/Vol] 9.5 mg/dL 8.6 - 10.4 mg/dL [facility] [employer] Chloride [Moles/Vol] 101 mmol/L 98 - 107 mmol/L [facility] [employer] CO2 [Moles/Vol] 25 mmol/L 20 - 31 mmol/L [facility] [employer] Creatinine [Mass/Vol] 0.76 mg/dL 0.50 - 0.90 mg/dL [facility] [employer] Free PSA/Total PSA [Mass fraction] 7.3 g/dL 6.4 - 8.3 g/dL [facility] GFR >60 >60 mL/min [facility] GFR Non- >60 >60 mL/min [facility] Glucose [Mass/Vol] 86 mg/dL 70 - 99 mg/dL [facility] Interpretation and review of laboratory results Abnormal [facility] Potassium [Moles/Vol] 4.0 mmol/L 3.7 - 5.3 mmol/L [facility] Sodium [Moles/Vol] 137 mmol/L 135 - 144 mmol/L [facility] Urea nitrogen (BldV) [Mass/Vol] 16 mg/dL 6 - 20 mg/dL [facility] Urea nitrogen/Creatinine (Bld) [Mass ratio] 21 High [facility] Laboratory - Chemistry and C hemistry - challengeon 07-27-2021 GFR/1.73 sq M.predicted MDRD (S/P/Bld) [Vol rate/Area] [facility] Comment on above: Average GFR for 30-3 9 years old: 107 mL/min/1.73sq m Chronic Kidney Disease: <60 mL/min/1.73sq m Kidney failure: <15 mL/min/1.73sq m eGFR calculated using average adult body mass. Additional eGFR calculator available at: http://www.[employer]/multiple_crcl_2012.htm Stage 1: Some kidney damage normal GFR Stage 2: Mild kidney damage GFR 60-89 Stage 3: Moderate kidney damage GFR 30-59 Stage 4: Severe kidney damage GFR 15-29 Stage 5: Severe kidney damage GFR <15 ESRD - chronic treatment by dialysis or transplant Lactic Acidon 07-27-2021 Lactate [Moles/Vol] 1 mmol/L 0.5 - 2.2 mmol/L [facility] Lipaseon 07-27-2021 Lipase [Catalytic activity/Vol] 49 U/L 13 - 60 U/L [facility] Microscopic Urinalysison - [facility] Epithelial Cells UA 0 TO 2 [facility] RBC, UA 0 TO 2 [facility] WBC, UA 0 TO [address] [facility] No Panel Informationon 07-[address] [facility] Protime-INRon 07-27-2021 INR Coag (Bld) [Relative time] 1.1 {INR} [facility] Comment on above: Non-therapeutic Range: INR = 0.9-1.2 Therapeutic Range: Moderate Anticoagulant Intensity: INR = 2.0-3.0 High Anticoagulant Intensity: INR = 2.5-3.5 PT Coag (PPP) [Time] 14.2 s [facility] Urinalysis with Reflex to Cu ltureon 07-27-2021 Bilirubin Urine Negative NEGATIVE [facility] Color, UA Yellow Yellow [facility] Glucose, Ur Negative NEGATIVE [facility] Ketones Ql (U) Negative NEGATIVE [facility] Leukocyte esterase Test strip Ql (U) Negative NEGATIVE [facility] Nitrite, Urine Negative NEGATIVE [facility] pH, UA 7.5 [facility] Protein, UA Negative NEGATIVE [facility] Specific [place], UA 1.010 [facility] Turbidity UA Clear Clear [facility] Urine Hgb Negative NEGATIVE [facility] Urobilinogen, Urine Normal Normal [facility] XR CHEST PORTABLEon 07-28-19 No acute process. [facility] EXAMINATION: ONE XRAY VIEW [...] The osseous structures are without acute process. [facility] Goldie Grande MD - [...] without acute process. IMPRESSION: No acute process. [employer] Phone: Radiology Study observation (narrative) [employer] Phone: XR CHEST PORTABLEOrdered By: Goldie Grande on 07-27-2021 [employer] Phone: XR HIP GENERAL 3V PELV/AP/LA T RIGHTon 06-18-2021 [facility] XR chest 2V*on 03-31-2021 XR chest 2V* [facility] [email or web address] Other XR chest 2V* [facility] [employer] Other XR chest 2V* [address] [place] [address] [employer] Other XR chest 2V* [place] [address] [facility] [email or web address] Other XR chest 2V* XRay Report [employer] Other XR chest 2V* Signed [employer] Other XR chest 2V* Patient: Abbey Garcia MR#: [id number] [place] [email or web address] Other XR chest 2V* : 1990 Acct:[id number] [employer] Other XR chest 2V* Age/Sex: 30 / F ADM Date: 03/31/21 [employer] Other XR chest 2V* Loc: XDCLY Room: Type: [facility] [employer] Other XR chest 2V* Attending Dr: Shanna June 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 The cardiac, hilar and [employer] Other XR chest 2V* mediastinal silhouettes are within normal limits. There is no vascular congestion. The [employer] Other XR chest 2V* visualized bony thorax is intact. [employer] Other XR chest 2V* XR/XR chest 2V* [employer] Other XR chest 2V* IMPRESSION: [employer] Other XR chest 2V* NO ACUTE CARDIOPULMONARY ABNORMALITY. [employer] Other XR chest 2V* Impression dictated by: Maricruz Hutchinson M.D.03/31/2021 11:32 AM [employer] Other XR chest 2V* Dictation Location: [facility]--10 [employer] Other XR chest 2V* Transcribed By: SULEMA 03/31/21 1132 [employer] Other XR chest 2V* Dictated By: Maricruz Hutchinson MD 03/31/21 1131 [employer] Other XR chest 2V* Signed By: [employer] Other XR chest 2V* 03/31/21 1132 [employer] Other Urinalysis - AUTOMATEDon Appearance (U) clear [employer] Other Bilirubin Ql (U) Negative [employer] Other Color (U) yellow [employer] Other Glucose Ql (U) Negative [employer] Other Hemoglobin Ql (U) Negative [employer] Other Ketones Ql (U) Negative [employer] Other Leukocyte esterase Test strip Ql (U) Negative [employer] Other Nitrite Ql (U) Negative [employer] Other pH (U) 7.0 [pH] [employer] Other Protein Ql (U) Negative [employer] Other Specific gravity (U) [Rel density] 1.015 [employer] Other Urobilinogen (U) [Mass/Vol] 0.2 mg/dL [employer] Other XR FINGER RIGHT (MIN 2 VIEWS )Ordered By: Vicky Olmedo on 12-14-2020 No acute osseous abnormality. [employer] Phone: EXAMINATION: THREE XRAY VIEWS OF THE RIGHT FINGERS 12/14/2020 3:26 pm COMPARISON: None. HISTORY: ORDERING SYSTEM PROVIDED HISTORY: shut right thumb in car door TECHNOLOGIST PROVIDED HISTORY: shut right thumb in car door FINDINGS: There is no evidence of acute fracture. There is normal alignment. No acute joint abnormality. No focal osseous lesion. No focal soft tissue abnormality. [employer] Phone: Yusuf, Mhpn Incoming Radiant Results From [employer] - 12/14/2020 3:33 PM EDT EXAMINATION: THREE [...] tissue abnormality. IMPRESSION: No acute osseous abnormality. [employer] Work Phone: [employer] Phone: CBC, EDIF, PLATELETOrdered B y: Juanito Laird on 07-02-2020 ABSOLUTE BASOPHIL COUNT 0.0 10*3/uL 0.0 - 0.2 10*3/uL [facility] Basophils/100 WBC (Bld) 0.6 % 0.0 - 2.0 % [facility] Differential cell count method Nom (Bld) AUTO DIFF % [facility] Eosinophils (Bld) [#/Vol] 0.10 10*3/uL 0.0 - 0.7 10*3/uL [facility] Eosinophils/100 WBC (Bld) 1.3 % 0.0 - 11.0 % [facility] Erythrocyte distribution width (RBC) [Ratio] 14.1 % 11.5 - 14.5 % [facility] Hematocrit (Bld) [Volume fraction] 36.2 % 36.0 - 48.0 % [facility] Hemoglobin (Bld) [Mass/Vol] 12.1 g/dL [facility] Lymphocytes (Bld) [#/Vol] 1.70 10*3/uL 1.2 - 3.4 10*3/uL [facility] Lymphocytes/100 WBC (Bld) 23.4 % 20.0 - 55.0 % [facility] MCH (RBC) [Entitic mass] 28.1 pg 26.0 - 35.0 PG [facility] MCHC (RBC) [Mass/Vol] 33.4 g/dL [facility] MCV (RBC) [Entitic vol] 84.1 fL [facility] Monocytes (Bld) [#/Vol] 0.5 10*3/uL 0.0 - 0.7 10*3/uL [facility] Monocytes/100 WBC (Bld) 6.4 % 0.0 - 10.0 % [facility] Neutrophils (Bld) [#/Vol] 5.0 10*3/uL 1.4 - 6.5 10*3/uL [facility] Neutrophils/100 WBC (Bld) 68.3 % 37.0 - 75.0 % [facility] Platelet mean volume (Bld) [Entitic vol] 8.9 fL [facility] Platelets (Bld) [#/Vol] 295 10*3/uL 130.0 - 400.0 10*3/uL [facility] RBC (Bld) [#/Vol] 4.31 10*6/uL 4.0 - 5.4 10*6/u L [facility] WBC (Bld) [#/Vol] 7.3 10*3/uL 3.6 - 11.0 10*3/u L [facility] COMPREHENSIVE METABOLIC PANE LOrdered By: Juanito Laird on 07-02-2020 Albumin [Mass/Vol] 4.1 G/dl 3.5 - 5.0 G/dl [facility] Albumin/Globulin [Mass ratio] 1.3 {ratio} [facility] ALP [Catalytic activity/Vol] 52 U/L [facility] ALT [Catalytic activity/Vol] 16 U/L [facility] AST [Catalytic activity/Vol] 29 U/L [facility] Bilirubin [Mass/Vol] 0.5 mg/dL [facility] Calcium [Mass/Vol] 9.2 mg/dL [facility] Chloride [Moles/Vol] 102 mmol/L [facility] CO2 [Moles/Vol] 22 mmol/L [facility] Creatinine [Mass/Vol] 0.59 mg/dL [facility] GFR COMMENT Average GFR for 30-39 years old = 109. [facility] Comment on above: Chronic Kidney disea se, GFR = <60. Kidney failure, GFR = <15. The GFR estimate is not adjusted for extreme body surface area or acute process, nor has it been validated for women or ethnic groups other than and . GFR/1.73 sq M.predicted among blacks MDRD (S/P/Bld) [Vol rate/Area] mL/min/{1.73_m2} ml/min/1.73sq.m [facility] GFR/1.73 sq M.predicted among non-blacks MDRD (S/P/Bld) [Vol rate/Area] mL/min/{1.73_m2} ml/min/1.73sq.m [facility] Glucose post fast [Mass/Vol] 84 mg/dL [facility] Comment on above: NORMAL <100 mg/dL PREDIABETES 101-126 mg/dL DIABETES 126 mg/dL or higher Interpretation and review of laboratory results Abnormal [facility] Potassium [Moles/Vol] 4.1 mmol/L [facility] Protein [Mass/Vol] 7.3 g/dL [facility] Sodium [Moles/Vol] 134 mmol/L [facility] Urea nitrogen [Mass/Vol] 15 mg/dL [facility] CT ABDOMEN/PELVIS WITHOUT CO NTRASTOrdered By: Juanito Laird on 07-02-2020 IMPRESSION: CT abdomen and CT pelvis studies demonstrate findings compatible with hepatic cysts as described, similar to prior study. Finding is compatible with complex right adnexal cyst as noted. Correlate for mild gastroenteritis. [facility] EXAMINATION: CT ABDOMEN/PELVIS WITHOUT CONTRAST HISTORY: Abdominal [...] bowel content. Bony structures are grossly intact. [employer]marker User, Interfaces - 07/02/2020 2:22 PM EDT [...] cyst as noted. Correlate for mild gastroenteritis. [facility] HCG ( test) Ql (U)O rdered By: Vaughn Ceja on 07-02-2020 [facility] HCG QUALITATIVE, URINEOrdere d By: Vaughn Ceja on 07-02-2020 HCG ( test) Ql (U) Negative NEGATIVE [facility] LACTATE, BLOODOrdered By: Catherine Laird on 07-02-2020 Lactate [Moles/Vol] 1.0 mmol/L [facility] LIPASEOrdered By: Juanito rosen on 07-02-2020 Lipase [Catalytic activity/Vol] 32 U/L 23 - 300 U/L [facility] No Panel InformationOrdered By: Juanito Laird on 07-02-2020 [facility] PROTIME-INROrdered By: Gautam Laird on 07-02-2020 INR Coag (PPP) [Relative time] 0.95 {INR} [facility] Comment on above: 2.0-3.0 THERAPEUTIC RANGE 2.5-3.5 MECHANICAL VALVE RANGE PT Coag (PPP) [Time] 12.9 s [facility] TYPE AND SCREEN - POSSIBLE T RANSFUSIONOrdered By: Juanito Laird on 07-02-2020 ABO and Rh group Nom (Bld ) Positive [facility] ARM BAND NUMBER [id number] [facility] Blood group antibody screen Ql Negative [facility] EXPIRATION DATE 07/05/2020,2350 [facility] URINALYSIS, MACROOrdered By: Vaughn Ceja on 07-02-2020 Bilirubin Ql (U) Negative NEGATIVE [facility] Clarity (U) SLIGHTLY CLOUDY Abnormal CLEAR [facility] Color (U) PINK Abnormal YELLOW [facility] Glucose Test strip (U) [Mass/Vol] Negative NEGATIVE mg/dl [facility] Hemoglobin Ql (U) LARGE Abnormal NEGATIVE [facility] Interpretation and review of laboratory results Abnormal [facility] Ketones (U) [Mass/Vol] Negative NEGATIVE mg/dl [facility] Leukocyte esterase Test strip Ql (U) TRACE Abnormal NEGATIVE [facility] Nitrite Ql (U) Negative NEGATIVE [facility] pH (U) 5.5 [pH] [facility] Protein Ql (U) 100 mg/dl Abnormal NEGATIVE [facility] Specific gravity (U) [Rel density] <1.005 Low [facility] Urobilinogen (U) [Mass/Vol] 0.2 mg/dL [facility] URINE MICROSCOPICOrdered By: Vaughn Ceja on 07-02-2020 Bacteria LM.HPF (Urine sed) [#/Area] TRACE Abnormal NEGATIVE [facility] Casts LM.LPF (Urine sed) [#/Area] NONE NONE /LPF [facility] Crystals LM Nom (Urine sed) NONE NONE [facility] Epithelial cells LM Ql (Urine sed) 10 TO 20 /HPF [facility] Interpretation and review of laboratory results Abnormal [facility] Mucus Ql (Urine sed) Negative NEGATIVE [facility] RBC LM.HPF (Urine sed) [#/Area] TOO NUMEROUS TO COUNT Abnormal NEGATIVE /HPF [facility] Urine sediment comments LM John (Urine sed) POSSIBLY CONTAMINATED SPECIMEN, CULTURE MUST BE ORDERED SEPARATELY IF DEEMED NECESSARY. [facility] WBC LM.HPF (Urine sed) [#/Area] 1 TO 5 NEGATIVE /HPF [facility] US PELVIC WITH TRANSVAGINAL WITH DOPPLEROrdered By: Juanito Laird on 07-02-2020 IMPRESSION: 5.5 cm septated right ovarian cyst No evidence of right ovarian torsion Nonvisualization of the left ovary 4.1 cm myometrial masses, leiomyoma suspected [facility] EXAM: US PELVIC WITH TRANSVAGINAL WITH [...] to patient body habitus and bowel gas [facility], Interfaces - 07/02/2020 4:10 PM EDT [...] ovary 4.1 cm myometrial masses, leiomyoma suspected [facility] CBC, EDIF, PLATELETon 2019 ABSOLUTE BASOPHIL COUNT 0.0 10*3/uL 0 - 0.2 10*3/uL [facility] Basophils/100 WBC (Bld) 0.6 % 0 - 2 % [facility] Differential cell count method Nom (Bld) AUTO DIFF % [facility] Eosinophils (Bld) [#/Vol] 0.10 10*3/uL 0 - 0.7 10*3/uL [facility] Eosinophils/100 WBC (Bld) 2.4 % 0 - 11 % [facility] Erythrocyte distribution width (RBC) [Ratio] 15.2 % High 11.5 - 14.5 % [facility] Hematocrit (Bld) [Volume fraction] 39.4 % 36 - 48 % [facility] Hemoglobin (Bld) [Mass/Vol] 12.7 g/dL [facility] Interpretation and review of laboratory results Abnormal [facility] Lymphocytes (Bld) [#/Vol] 1.50 10*3/uL 1.2 - 3.4 10*3/uL [facility] Lymphocytes/100 WBC (Bld) 25.8 % 20 - 55 % [facility] MCH (RBC) [Entitic mass] 28.3 pg 26 - 35 PG [facility] MCHC (RBC) [Mass/Vol] 32.3 g/dL [facility] MCV (RBC) [Entitic vol] 87.6 fL [facility] Monocytes (Bld) [#/Vol] 0.3 10*3/uL 0 - 0.7 10*3/uL [facility] Monocytes/100 WBC (Bld) 5.6 % 0 - 10 % [facility] Neutrophils (Bld) [#/Vol] 3.7 10*3/uL 1.4 - 6.5 10*3/uL [facility] Neutrophils/100 WBC (Bld) 65.6 % 37 - 75 % [facility] Platelet mean volume (Bld) [Entitic vol] 9.2 fL [facility] Platelets (Bld) [#/Vol] 277 10*3/uL 130 - 400 10*3/uL [facility] RBC (Bld) [#/Vol] 4.50 10*6/uL 4 - 5.4 10*6/uL [facility] WBC (Bld) [#/Vol] 5.7 10*3/uL 3.6 - 11 10*3/uL [facility] CHEM 7 (LYTES,BUN,CREA,GLUC) on 01-30-2020 Chloride [Moles/Vol] 106 mmol/L [facility] CO2 [Moles/Vol] 20 mmol/L Low [facility] Creatinine [Mass/Vol] 0.67 mg/dL [facility] GFR/1.73 sq M predicted among blacks MDRD (S/P/Bld) [Vol rate/Area] mL/min/{1.73_m2} ml/min/1.73sq.m [facility] GFR/1.73 sq M predicted among non-blacks MDRD (S/P/Bld) [Vol rate/Area] mL/min/{1.73_m2} ml/min/1.73sq.m [facility] GFR/1.73 sq M predicted among non-blacks MDRD (S/P/Bld) [Vol rate/Area] Average GFR for 30-39 years old = 109. [facility] Comment on above: Chronic Kidney disea se, GFR = <60. Kidney failure, GFR = <15. The GFR estimate is not adjusted for extreme body surface area or acute process, nor has it been validated for women or ethnic groups other than and . Glucose post fast [Mass/Vol] 78 mg/dL [facility] Comment on above: NORMAL <100 mg/dL PREDIABETES 101-126 mg/dL DIABETES 126 mg/dL or higher Interpretation and review of laboratory results Abnormal [facility] Potassium [Moles/Vol] 3.8 mmol/L [facility] Sodium [Moles/Vol] 138 mmol/L [facility] Urea nitrogen [Mass/Vol] 8 mg/dL [facility] CT ABDOMEN/PELVIS WITH CONTR Daljit 01-30-2020 User, [...] unchanged. 4. Prior cholecystectomy and appendectomy. 2 [facility] EXAMINATION: CT ABDOMEN/PELVIS WITH CONTRAST HISTORY: [...] osseous lesions. No compression fracture is identified. [facility] IMPRESSION: 1. Scattered fluid throughout nondilated small bowel may correlate with enteritis or mild ileus pattern. No bowel obstruction. 2. Left ovarian cyst measures 4.7 cm. Pelvic ultrasound could be considered, if clinical symptoms warrant. 3. Hepatic cysts, unchanged. 4. Prior cholecystectomy and appendectomy. 2 [facility] HCG QUALITATIVE, URINEon HCG ( test) Ql (U) Negative NEGATIVE [facility] HEPATIC FUNCTION PANELon Albumin [Mass/Vol] 4.6 g/dL [facility] ALP [Catalytic activity/Vol] 52 U/L [facility] ALT [Catalytic activity/Vol] 18 U/L [facility] AST [Catalytic activity/Vol] 31 U/L [facility] Bilirubin [Mass/Vol] 0.5 mg/dL [facility] Bilirubin.direct [Mass/Vol] 0.0 mg/dL [facility] Protein [Mass/Vol] 7.7 g/dL [facility] LIPASEon 01-30-2020 Lipase [Catalytic activity/Vol] 33 U/L 23 - 300 U/L [facility] URINALYSIS, MACROon 01-30-20 20 Bilirubin Ql (U) Negative NEGATIVE [facility] Clarity (U) CLEAR CLEAR [facility] Color (U) YELLOW YELLOW [facility] Glucose Test strip (U) [Mass/Vol] Negative NEGATIVE mg/dl [facility] Hemoglobin Ql (U) Negative NEGATIVE [facility] Interpretation and review of laboratory results Abnormal [facility] Ketones (U) [Mass/Vol] Negative NEGATIVE mg/dl [facility] Leukocyte esterase Test strip Ql (U) Negative NEGATIVE [facility] Nitrite Ql (U) Negative NEGATIVE [facility] pH (U) 7.5 [pH] High [facility] Protein Ql (U) Negative NEGATIVE mg/dl [facility] Specific gravity (U) [Rel density] 1.015 [facility] Urobilinogen (U) [Mass/Vol] 0.2 [facility] Vital Signs Date Time Vital Sign Value Performing Clinician Facility 08-14-2023 18:07-0400 Diastolic blood pressure 74 mm[Hg] SALES COUNSELOR-C Jaquan Cristhian Work Phone: [facility] 08-14-2023 18:07-0400 Heart rate 66 /min SALES COUNSELOR-C Jaquan Cristhian Work Phone: [facility] 08-14-2023 18:07-0400 Respiratory rate 18 /min SALES COUNSELOR-C Jaquan Cristhian Work Phone: [facility] 08-14-2023 18:07-0400 SaO2% (BldA) [Mass fraction] 99 % SALES COUNSELOR-C Jaquan Cristhian Work Phone: [facility] 08-14-2023 18:07-0400 Systolic blood pressure 110 mm[Hg] SALES COUNSELOR-C Jaquan Cristhian Work Phone: [facility] 08-14-2023 16:17-0400 Body height 167.64 cm SALES COUNSELOR-C Jaquan Cristhian Work Phone: [facility] 08-14-2023 16:17-0400 Body temperature 97.5 [degF] SALES COUNSELOR-C Jaquan Cristhian Work Phone: [facility] 08-14-2023 16:17-0400 Body weight 78.92 kg SALES COUNSELOR-C Jaquan Cristhian Work Phone: [facility] 08-09-2023 13:51-0400 Diastolic blood pressure 79 mm[Hg] Vic Ramos MD Work Phone: [facility] 08-09-2023 13:51-0400 Heart rate 76 /min Vic Ramos MD Work Phone: [facility] 08-09-2023 13:51-0400 Systolic blood pressure 113 mm[Hg] Vic Ramos MD Work Phone: [facility] 08-04-2023 08:23-0400 Body mass index (BMI) [Ratio] 29.21 kg/m2 Boogie Murguia MD Work Phone: [facility] 08-04-2023 08:23-0400 Body weight 82.1 kg Boogie Murguia MD Work Phone: [facility] 07-31-2023 13:21-0400 Diastolic blood pressure 55 mm[Hg] SALES COUNSELOR-C Jaquan Cristhian Work Phone: [facility] 07-31-2023 13:21-0400 Heart rate 64 /min SALES COUNSELOR-C Jaquan Cristhian Work Phone: [facility] 07-31-2023 13:21-0400 Respiratory rate 18 /min SALES COUNSELOR-C Jaquan Cristhian Work Phone: [facility] 07-31-2023 13:21-0400 SaO2% (BldA) [Mass fraction] 97 % SALES COUNSELOR-C Jaquan Cristhian Work Phone: [facility] 07-31-2023 13:21-0400 Systolic blood pressure 104 mm[Hg] SALES COUNSELOR-C Jaquan Cristhian Work Phone: [facility] 07-31-2023 10:21-0400 Body height 168.91 cm SALES COUNSELOR-C Jaquan Cristhian Work Phone: [facility] 07-31-2023 10:21-0400 Body temperature 98.2 [degF] SALES COUNSELOR-C Jaquan Cristhian Work Phone: [facility] 07-31-2023 10:21-0400 Body weight 79 kg SALES COUNSELOR-C Jaquan Cristhian Work Phone: [facility] 07-17-2023 21:45-0400 Body temperature 98.2 [degF] SALES COUNSELOR-C Jaquan Cristhian Work Phone: [facility] 07-17-2023 21:45-0400 Diastolic blood pressure 73 mm[Hg] SALES COUNSELOR-C Jaquan Cristhian Work Phone: [facility] 07-17-2023 21:45-0400 Heart rate 66 /min SALES COUNSELOR-C Jaquan Cristhian Work Phone: [facility] 07-17-2023 21:45-0400 Respiratory rate 16 /min SALES COUNSELOR-C Jaquan Cristhian Work Phone: [facility] 07-17-2023 21:45-0400 SaO2% (BldA) [Mass fraction] 97 % SALES COUNSELOR-C Jaquan Cristhian Work Phone: [facility] 07-17-2023 21:45-0400 Systolic blood pressure 108 mm[Hg] SALES COUNSELOR-C Jaquan Cristhian Work Phone: [facility] 07-17-2023 12:39-0400 Body height 167.64 cm SALES COUNSELOR-C Jaquan Cristhian Work Phone: [facility] 07-17-2023 08:45-0400 Body weight 79.5 kg SALES COUNSELOR-C Jaquan Cristhian Work Phone: [facility] 07-17-2023 07:30-0400 Diastolic blood pressure 53 mm[Hg] SALES COUNSELOR-C Jaquan Cristhian Work Phone: [facility] 07-17-2023 07:30-0400 Heart rate 62 /min SALES COUNSELOR-C Jaquan Cristhian Work Phone: [facility] 07-17-2023 07:30-0400 Respiratory rate 16 /min SALES COUNSELOR-C Jaquan Cristhian Work Phone: [facility] 07-17-2023 07:30-0400 SaO2% (BldA) [Mass fraction] 96 % SALES COUNSELOR-C Jaquan Cristhian Work Phone: [facility] 07-17-2023 07:30-0400 Systolic blood pressure 106 mm[Hg] SALES COUNSELOR-C Jaquan Cristhian Work Phone: [facility] 07-16-2023 14:44-0400 Body height 167.64 cm SALES COUNSELOR-C Jaquan Cristhian Work Phone: [facility] 07-16-2023 14:44-0400 Body temperature 97.6 [degF] SALES COUNSELOR-C Jaquan Cristhian Work Phone: [facility] 07-16-2023 14:44-0400 Body weight 79.95 kg SALES COUNSELOR-C Jaquan Cristhian Work Phone: [facility] 07-03-2023 07:00-0400 Body temperature 98.6 [degF] David Wodrich DO Work Phone: 0(159)342-028708 [place] [address] 07-03-2023 07:00-0400 Diastolic blood pressure 57 mm[Hg] David Wodrich DO Work Phone: 6(709)819-229608 [place] [address] 07-03-2023 07:00-0400 Heart rate 105 /min David Wodrich DO Work Phone: 8(477)669-079008 [place] [address] 07-03-2023 07:00-0400 Respiratory rate 18 /min David Wodrich DO Work Phone: 2(256)124-527408 [place] [address] 07-03-2023 07:00-0400 SaO2% (BldA) [Mass fraction] 100 % David Wodrich DO Work Phone: 6(475)187-423408 [place] [address] 07-03-2023 07:00-0400 Systolic blood pressure 99 mm[Hg] David Wodrich DO Work Phone: 8(120)452-328608 [place] [address] 06-29-2023 18:16-0400 Body height 167.6 cm David Wodrich DO Work Phone: 3(147)[phone] [place] [address] 06-29-2023 18:16-0400 Body mass index (BMI) [Ratio] 27.12 kg/m2 David Wodrich DO Work Phone: 2(428)839-598408 [place] [address] 06-29-2023 18:16-0400 Body weight 76.2 kg David Wodrich DO Work Phone: 3(169)[phone] [place] [address] 06-22-2023 11:14-0400 Body height 167.6 cm Sherry Magaña MD Work Phone: [facility] 06-22-2023 11:14-0400 Body mass index (BMI) [Ratio] 27.12 kg/m2 Sherry Magaña MD Work Phone: [facility] 06-22-2023 11:14-0400 Body weight 76.2 kg Sherry Magaña MD Work Phone: [facility] 06-18-2023 09:35-0400 Body height 167.6 cm Breanna Stern APRN.LABEL FOLDER Work Phone: [facility] 06-18-2023 09:35-0400 Body mass index (BMI) [Ratio] 27.29 kg/m2 Breanna Stern APRN.LABEL FOLDER Work Phone: [facility] 06-18-2023 09:35-0400 Body temperature 98.01 [degF] Breanna Stern APRN.LABEL FOLDER Work Phone: [facility] 06-18-2023 09:35-0400 Body weight 76.66 kg Breanna Stern APRN.LABEL FOLDER Work Phone: [facility] 06-18-2023 09:35-0400 Diastolic blood pressure 82 mm[Hg] Breanna Stern APRN.LABEL FOLDER Work Phone: [facility] 06-18-2023 09:35-0400 Heart rate 78 /min Breanna Stern APRN.LABEL FOLDER Work Phone: [facility] 06-18-2023 09:35-0400 SaO2% (BldA) [Mass fraction] 100 % Breanna Stern APRN.LABEL FOLDER Work Phone: [facility] 06-18-2023 09:35-0400 Systolic blood pressure 142 mm[Hg] Breanna Stern APRN.LABEL FOLDER Work Phone: [facility] 05-31-2023 00:53-0400 Diastolic blood pressure 82 mm[Hg] PAO Morrow Work Phone: [facility] 05-31-2023 00:53-0400 Heart rate 51 /min SALES COUNSELOR-C Jaquan Cristhian Work Phone: [facility] 05-31-2023 00:53-0400 Respiratory rate 18 /min SALES COUNSELOR-C Jaquan Cristhian Work Phone: [facility] 05-31-2023 00:53-0400 SaO2% (BldA) [Mass fraction] 91 % SALES COUNSELOR-C Jaquan Cristhian Work Phone: [facility] 05-31-2023 00:53-0400 Systolic blood pressure 142 mm[Hg] SALES COUNSELOR-C Jaquan Cristhian Work Phone: [facility] 05-30-2023 15:25-0400 Body height 167.64 cm SALES COUNSELOR-C Jaquan Cristhian Work Phone: [facility] 05-30-2023 15:25-0400 Body temperature 97.7 [degF] SALES COUNSELOR-C Jaquan Cristhian Work Phone: [facility] 05-30-2023 15:25-0400 Body weight 76.65 kg SALES COUNSELOR-C Jaquan Cristhian Work Phone: [facility] 05-17-2023 16:03-0400 Diastolic blood pressure 82 mm[Hg] [facility] 05-17-2023 16:03-0400 Heart rate 72 /min [facility] 05-17-2023 16:03-0400 Mean blood pressure 95 mm[Hg] [facility] 05-17-2023 16:03-0400 Respiratory rate 17 /min [facility] 05-17-2023 16:03-0400 SaO2% (BldA) [Mass fraction] 100 % [facility] 05-17-2023 16:03-0400 Systolic blood pressure 120 mm[Hg] [facility] 05-17-2023 15:30-0400 Diastolic blood pressure 86 mm[Hg] [facility] 05-17-2023 15:30-0400 Heart rate 71 /min [facility] 05-17-2023 15:30-0400 Mean blood pressure 103 mm[Hg] [facility] 05-17-2023 15:30-0400 Respiratory rate 16 /min [facility] 05-17-2023 15:30-0400 SaO2% (BldA) [Mass fraction] 100 % [facility] 05-17-2023 15:30-0400 Systolic blood pressure 136 mm[Hg] [facility] 05-17-2023 15:00-0400 Diastolic blood pressure 78 mm[Hg] [facility] 05-17-2023 15:00-0400 Heart rate 70 /min [facility] 05-17-2023 15:00-0400 Mean blood pressure 97 mm[Hg] [facility] 05-17-2023 15:00-0400 Respiratory rate 15 /min [facility] 05-17-2023 14:16-0400 Body temperature 97.7 [degF] [facility] 05-17-2023 14:16-0400 Heart rate 74 /min [facility] 05-14-2023 13:06-0400 Hourly Rounding [facility] 05-14-2023 13:06-0400 Promise to Return [facility] 05-14-2023 12:06-0400 Hourly Rounding [facility] 05-14-2023 12:06-0400 Promise to Return [facility] 05-14-2023 11:32-0400 Hourly Rounding [facility] 05-14-2023 11:32-0400 Promise to Return [facility] 05-14-2023 10:08-0400 Heart rate 57 /min [facility] 05-14-2023 10:08-0400 SaO2% (BldA) [Mass fraction] 100 % [facility] 05-14-2023 10:08-0400 Diastolic blood pressure 80 mm[Hg] [facility] 05-14-2023 10:08-0400 Mean blood pressure 93 mm[Hg] [facility]oc[facility] 05-14-2023 10:08-0400 Systolic blood pressure 119 mm[Hg] [facility] 05-14-2023 10:08-0400 Body temperature 97.34 [degF] [facility] 05-14-2023 07:32-0400 Heart rate 57 /min [facility] 05-14-2023 07:32-0400 SaO2% (BldA) [Mass fraction] 100 % [facility] 05-14-2023 07:32-0400 Diastolic blood pressure 66 mm[Hg] [facility] 05-14-2023 07:32-0400 Mean blood pressure 77 mm[Hg] [facility] 05-14-2023 07:32-0400 Systolic blood pressure 100 mm[Hg] [facility] 05-14-2023 07:31-0400 Body temperature 97.34 [degF] [facility] 05-14-2023 05:00-0400 Blood Pressure Location [facility] 05-14-2023 05:00-0400 Diastolic blood pressure 77 mm[Hg] [facility] 05-14-2023 05:00-0400 Mean blood pressure 90 mm[Hg] [facility] 05-14-2023 05:00-0400 Systolic blood pressure 116 mm[Hg] [facility] 05-13-2023 23:38-0400 Heart rate 53 /min [facility] 05-13-2023 23:38-0400 SaO2% (BldA) [Mass fraction] 100 % [facility] 05-13-2023 23:38-0400 Respiratory rate 16 /min [facility] 05-13-2023 23:37-0400 Mean blood pressure 92 mm[Hg] [facility] 05-13-2023 23:00-0400 Blood Pressure Location [facility] 05-13-2023 23:00-0400 Body temperature 97.34 [degF] [facility] 05-13-2023 19:33-0400 Body temperature 97.52 [degF] [facility] 05-13-2023 16:00-0400 Body temperature 98.06 [degF] [facility] 05-13-2023 11:00-0400 Body temperature 98.24 [degF] [facility] 05-12-2023 16:17-0400 Blood Pressure Location [facility] 05-12-2023 16:00-0400 Respiratory rate 20 /min [facility] 05-12-2023 15:55-0400 Mean blood pressure 86 mm[Hg] [facility] 05-12-2023 15:55-0400 Respiratory rate 14 /min [facility] 05-12-2023 15:50-0400 Mean blood pressure 87 mm[Hg] [facility] 05-12-2023 15:50-0400 Respiratory rate 18 /min [facility] 05-12-2023 15:36-0400 Body temperature 97.88 [degF] [facility] 05-12-2023 15:30-0400 Respiratory rate 12 /min [facility] 05-12-2023 15:25-0400 Respiratory rate 12 /min [facility] 05-12-2023 13:19-0400 Heart rate 61 /min [facility] 05-12-2023 09:32-0400 Heart rate 77 /min [facility] 05-11-2023 16:43-0400 Diastolic blood pressure 67 mm[Hg] Mateusz Garcia [facility] 05-11-2023 16:43-0400 Heart rate 75 /min Mateusz Jose [facility] 05-11-2023 16:43-0400 Mean blood pressure 83 mm[Hg] Mateusz Jose [facility] 05-11-2023 16:43-0400 Respiratory rate 18 /min Mateusz Jose [facility] 05-11-2023 16:43-0400 SaO2% (BldA) [Mass fraction] 100 % Mateusz Jose [facility] 05-11-2023 16:43-0400 Systolic blood pressure 115 mm[Hg] Mateusz Jose [facility] 05-11-2023 15:00-0400 Diastolic blood pressure 79 mm[Hg] Mateusz Jose [facility] 05-11-2023 15:00-0400 Heart rate 65 /min Mateusz Jose [facility] 05-11-2023 15:00-0400 Mean blood pressure 92 mm[Hg] Mateusz Jose [facility] 05-11-2023 15:00-0400 Systolic blood pressure 118 mm[Hg] Mateusz Jose [facility] 05-11-2023 14:30-0400 Heart rate 69 /min Mateusz Jose [facility] 05-11-2023 14:30-0400 Respiratory rate 18 /min Mateusz Jose [facility] 05-11-2023 14:30-0400 SaO2% (BldA) [Mass fraction] 100 % Mateusz Jose [facility] 05-11-2023 12:00-0400 Body temperature 97.7 [degF] Mateusz Jose [facility] 05-11-2023 12:00-0400 Diastolic blood pressure 83 mm[Hg] Mateusz Jose [facility] 05-11-2023 12:00-0400 Heart rate 73 /min Mateusz Jose [facility] 05-11-2023 12:00-0400 Systolic blood pressure 147 mm[Hg] Mateusz Jose [facility] 05-09-2023 16:20-0400 Diastolic blood pressure 67 mm[Hg] Amteusz Jose [facility] 05-09-2023 16:20-0400 Heart rate 75 /min Mateusz Jose [facility] 05-09-2023 16:20-0400 Mean blood pressure 82 mm[Hg] Mateusz Jose [facility] 05-09-2023 16:20-0400 Respiratory rate 16 /min Mateusz Jose [facility] 05-09-2023 16:20-0400 SaO2% (BldA) [Mass fraction] 97 % Mateusz Jose [facility] 05-09-2023 16:20-0400 Systolic blood pressure 112 mm[Hg] Mateusz Jose [facility] 05-09-2023 15:40-0400 Diastolic blood pressure 69 mm[Hg] Mateusz Jose [facility] 05-09-2023 15:40-0400 Heart rate 69 /min Mateusz Jose [facility] 05-09-2023 15:40-0400 Mean blood pressure 84 mm[Hg] Mateusz Jose [facility] 05-09-2023 15:40-0400 Respiratory rate 18 /min Mateusz Jose [facility] 05-09-2023 15:40-0400 SaO2% (BldA) [Mass fraction] 100 % Mateusz Jose [facility] 05-09-2023 15:40-0400 Systolic blood pressure 113 mm[Hg] Mateusz Jose [facility] 05-09-2023 14:00-0400 Diastolic blood pressure 80 mm[Hg] Mateusz Jose [facility] 05-09-2023 14:00-0400 Heart rate 78 /min [facility] [facility] 05-[facility]23 14:00-0400 Mean blood pressure 96 mm[Hg] Mateusz Joes [facility] 05-09-2023 14:00-0400 Respiratory rate 19 /min Mateusz Jose [facility] 05-09-2023 14:00-0400 Systolic blood pressure 129 mm[Hg] Mateusz Jose [facility] 05-09-2023 11:47-0400 Body temperature 97.7 [degF] Mateusz Jose [facility] 05-09-2023 11:47-0400 Heart rate 107 /min Mateusz Jose [facility] 05-06-2023 21:11-0400 Diastolic blood pressure 61 mm[Hg] Mateusz Jose [facility] 05-06-2023 21:11-0400 Heart rate 55 /min Mateusz Jose [facility] 05-06-2023 21:11-0400 Mean blood pressure 74 mm[Hg] Mateusz Jose [facility] 05-06-2023 21:11-0400 Respiratory rate 16 /min Mateusz Jose [facility] 05-06-2023 21:11-0400 SaO2% (BldA) [Mass fraction] 100 % Mateusz Jose [facility] 05-06-2023 21:11-0400 Systolic blood pressure 100 mm[Hg] Mateusz Jose [facility] 05-06-2023 20:20-0400 Diastolic blood pressure 73 mm[Hg] Mateusz Jose [facility] 05-06-2023 20:20-0400 Heart rate 53 /min Mateusz Jose [facility] 05-06-2023 20:20-0400 Mean blood pressure 89 mm[Hg] Mateusz Jose [facility] 05-06-2023 20:20-0400 Respiratory rate 14 /min Mateusz Jose [facility] 05-06-2023 20:20-0400 SaO2% (BldA) [Mass fraction] 100 % Mateusz Jose [facility] 05-06-2023 20:20-0400 Systolic blood pressure 122 mm[Hg] Mateusz Jose [facility] 05-06-2023 19:30-0400 Diastolic blood pressure 87 mm[Hg] Mateusz Jose [facility] 05-06-2023 19:30-0400 Heart rate 72 /min Mateusz Jose [facility] 05-06-2023 19:30-0400 Mean blood pressure 105 mm[Hg] Mateusz Jose [facility] 05-06-2023 19:30-0400 Respiratory rate 16 /min Mateusz Jose [facility] 05-06-2023 19:30-0400 SaO2% (BldA) [Mass fraction] 100 % Mateusz aGrcia [facility] 05-06-2023 19:30-0400 Systolic blood pressure 141 mm[Hg] Mateusz Garcia [facility] 05-06-2023 15:45-0400 Body temperature 98.78 [degF] Mateusz Garcia [facility] 05-06-2023 15:45-0400 Heart rate 66 /min Mateusz Garcia [facility] 05-06-2023 15:45-0400 Respiratory rate 18 /min Mateusz Garcia [facility] 04-28-2023 09:49-0400 Body height 167.6 cm Kasie Avalos MD Work Phone: [facility] 04-28-2023 09:49-0400 Body temperature 96.6 [degF] Kasie Avalos MD Work Phone: [facility] 04-28-2023 09:49-0400 Body weight 79.38 kg Kasie Avalos MD Work Phone: [facility] 04-28-2023 09:49-0400 Diastolic blood pressure 75 mm[Hg] Kasie Avalos MD Work Phone: [facility] 04-28-2023 09:49-0400 Heart rate 80 /min Kasie Avalos MD Work Phone: [facility] 04-28-2023 09:49-0400 SaO2% (BldA) [Mass fraction] 100 % Kasie Avalos MD Work Phone: [facility] 04-28-2023 09:49-0400 Systolic blood pressure 106 mm[Hg] Kasie Avalos MD Work Phone: [facility] 04-06-2023 14:00-0500 Diastolic blood pressure 59 mm[Hg] SALES COUNSELOR-C Jaquan Cristhian Work Phone: [facility] 04-06-2023 14:00-0500 Heart rate 59 /min SALES COUNSELOR-C Jaquan Cristhian Work Phone: [facility] 04-06-2023 14:00-0500 Respiratory rate 16 /min SALES COUNSELOR-C Jaquan Cristhian Work Phone: [facility] 04-06-2023 14:00-0500 SaO2% (BldA) [Mass fraction] 98 % SALES COUNSELOR-C Jaquan Cristhian Work Phone: [facility] 04-06-2023 14:00-0500 Systolic blood pressure 113 mm[Hg] SALES COUNSELOR-C Jaquan Cristhian Work Phone: [facility] 04-06-2023 09:47-0500 Body height 167.64 cm SALES COUNSELOR-C Jaquan Cristhian Work Phone: [facility] 04-06-2023 09:47-0500 Body temperature 96.7 [degF] SALES COUNSELOR-C Jaquan Cristhian Work Phone: [facility] 04-06-2023 09:47-0500 Body weight 81.1 kg SALES COUNSELOR-C Jaquan Cristhian Work Phone: [facility] 04-02-2023 17:00-0500 Diastolic blood pressure 63 mm[Hg] [facility] 04-02-2023 17:00-0500 Heart rate 75 /min [facility] 04-02-2023 17:00-0500 Mean blood pressure 80 mm[Hg] [facility] 04-02-2023 17:00-0500 SaO2% (BldA) [Mass fraction] 99 % [facility] 04-02-2023 17:00-0500 Systolic blood pressure 113 mm[Hg] [facility] 04-02-2023 16:00-0500 Diastolic blood pressure 71 mm[Hg] [facility] 04-02-2023 16:00-0500 Heart rate 71 /min [facility] 04-02-2023 16:00-0500 Mean blood pressure 88 mm[Hg] [facility] 04-02-2023 16:00-0500 Respiratory rate 14 /min [facility] 04-02-2023 16:00-0500 SaO2% (BldA) [Mass fraction] 100 % [facility] 04-02-2023 16:00-0500 Systolic blood pressure 123 mm[Hg] [facility] 04-02-2023 15:00-0500 Diastolic blood pressure 55 mm[Hg] [facility] 04-02-2023 15:00-0500 Heart rate 76 /min [facility] 04-02-2023 15:00-0500 Mean blood pressure 73 mm[Hg] [facility] 04-02-2023 15:00-0500 Respiratory rate 17 /min [facility] 04-02-2023 15:00-0500 Systolic blood pressure 109 mm[Hg] [facility] 04-02-2023 10:54-0500 Body temperature 98.6 [degF] [facility] 04-02-2023 10:54-0500 Heart rate 73 /min [facility] 04-02-2023 10:54-0500 Respiratory rate 16 /min [facility] 03-20-2023 08:41-0500 Body temperature 97.5 [degF] Melisa Barker MD Work Phone: [facility] 03-20-2023 08:41-0500 Diastolic blood pressure 74 mm[Hg] Melisa Barker MD Work Phone: [facility] 03-20-2023 08:41-0500 Heart rate 62 /min Melisa Barker MD Work Phone: [facility] 03-20-2023 08:41-0500 Respiratory rate 18 /min Melisa Barker MD Work Phone: [facility] 03-20-2023 08:41-0500 SaO2% (BldA) [Mass fraction] 98 % Melisa Barker MD Work Phone: [facility] 03-20-2023 08:41-0500 Systolic blood pressure 131 mm[Hg] Melisa Barker MD Work Phone: [facility] 03-16-2023 13:47-0500 Body height 167.6 cm Melisa Barker MD Work Phone: [facility] 03-16-2023 13:47-0500 Body mass index (BMI) [Ratio] 32.99 kg/m2 Melisa Barker MD Work Phone: [facility] 03-16-2023 13:47-0500 Body weight 92.7 kg Melisa Barker MD Work Phone: [facility] 03-16-2023 12:00-0500 Diastolic blood pressure 70 mm[Hg] Earnest Jett [facility] 03-16-2023 12:00-0500 Heart rate 69 /min Earnest Jett [facility] 03-16-2023 12:00-0500 Mean blood pressure 84 mm[Hg] Earnest Jett [facility] 03-16-2023 12:00-0500 Systolic blood pressure 113 mm[Hg] Earnest Jett [facility] 03-16-2023 11:30-0500 Diastolic blood pressure 86 mm[Hg] Earnest Jett [facility] 03-16-2023 11:30-0500 Heart rate 61 /min Earnest Jett [facility] 03-16-2023 11:30-0500 Mean blood pressure 102 mm[Hg] Earnest Blancoe [facility] 03-16-2023 11:30-0500 Respiratory rate 16 /min Earnest Blancoe [facility] 03-16-2023 11:30-0500 Systolic blood pressure 133 mm[Hg] Earnest Johnie [facility] 03-16-2023 11:07-0500 Diastolic blood pressure 83 mm[Hg] Earnest Johnie [facility] 03-16-2023 11:07-0500 Heart rate 63 /min Earnest Johnie [facility] 03-16-2023 11:07-0500 Mean blood pressure 94 mm[Hg] Earnest Blancoe [facility] 03-16-2023 11:07-0500 SaO2% (BldA) [Mass fraction] 100 % Earnest Blancoe [facility] 03-16-2023 11:07-0500 Systolic blood pressure 116 mm[Hg] Earnest Blancoe [facility] 03-16-2023 10:21-0500 Body temperature 97.52 [degF] Earnest Blancoe [facility] 03-16-2023 10:21-0500 Heart rate 70 /min Earnest Johnie [facility] 03-16-2023 10:21-0500 SaO2% (BldA) [Mass fraction] 100 % E[facility]est Johnie [facility] 03-15-2023 18:00-0500 Diastolic blood pressure 75 mm[Hg] Earnest Johnie [facility] 03-15-2023 18:00-0500 Heart rate 68 /min Earnest Blancoe [facility] 03-15-2023 18:00-0500 Mean blood pressure 94 mm[Hg] Earnest Johnie [facility] 03-15-2023 18:00-0500 Respiratory rate 16 /min Earnest Johnie [facility] 03-15-2023 18:00-0500 SaO2% (BldA) [Mass fraction] 98 % [facility]est Johnie [facility] 03-15-2023 18:00-0500 Systolic blood pressure 131 mm[Hg] Earnest Johnie [facility] 03-15-2023 17:19-0500 Diastolic blood pressure 66 mm[Hg] Earnest Johnie [facility] 03-15-2023 17:19-0500 Heart rate 56 /min Earnest Johnie [facility] 03-15-2023 17:19-0500 Mean blood pressure 79 mm[Hg] Earnest Johnie [facility] 03-15-2023 17:19-0500 Respiratory rate 18 /min Earnest Johnie [facility] 03-15-2023 17:19-0500 SaO2% (BldA) [Mass fraction] 95 % [facility]est Johnie [facility] 03-15-2023 17:19-0500 Systolic blood pressure 104 mm[Hg] Earnest Johnie [facility] 03-15-2023 16:23-0500 Diastolic blood pressure 72 mm[Hg] Earnest Johnie [facility] 03-15-2023 16:23-0500 Heart rate 58 /min Earnest Johnie [facility] 03-15-2023 16:23-0500 Mean blood pressure 90 mm[Hg] Earnest Jett [facility] 03-15-2023 16:23-0500 Respiratory rate 20 /min Earnest Jett [facility] 03-15-2023 16:23-0500 SaO2% (BldA) [Mass fraction] 99 % Earnest Jett [facility] 03-15-2023 16:23-0500 Systolic blood pressure 126 mm[Hg] Earnest Jett [facility] 03-15-2023 11:41-0500 Body temperature 97.88 [degF] Earnest Jett [facility] 03-15-2023 11:41-0500 Heart rate 71 /min Earnest Jett [facility] 03-15-2023 11:41-0500 Respiratory rate 26 /min Earnest Jett [facility] 03-10-2023 11:50-0500 Body temperature 97.9 [degF] Sherry Magaña MD Work Phone: [facility] 03-10-2023 11:50-0500 Diastolic blood pressure 85 mm[Hg] Sherry Magaña MD Work Phone: [facility] 03-10-2023 11:50-0500 Heart rate 73 /min Sherry Magaña MD Work Phone: [facility] 03-10-2023 11:50-0500 Respiratory rate 18 /min Sherry Magaña MD Work Phone: [facility] 03-10-2023 11:50-0500 SaO2% (BldA) [Mass fraction] 100 % Sherry Magaña MD Work Phone: [facility] 03-10-2023 11:50-0500 Systolic blood pressure 137 mm[Hg] Sherry Magaña MD Work Phone: [facility] 03-10-2023 08:32-0500 Body mass index (BMI) [Ratio] 29.69 kg/m2 Sherry Magaña MD Work Phone: [facility] 03-10-2023 08:32-0500 Body weight 83.4 kg Sherry Magaña MD Work Phone: [facility] 03-05-2023 06:42-0500 Body height 167.6 cm Sherry Magaña MD Work Phone: [facility] 02-13-2023 17:30-0500 Diastolic blood pressure 73 mm[Hg] SALES COUNSELOR-C Jaquan Cristhian Work Phone: [facility] 02-13-2023 17:30-0500 Heart rate 61 /min SALES COUNSELOR-C Jaquan Cristhian Work Phone: [facility] 02-13-2023 17:30-0500 Respiratory rate 18 /min SALES COUNSELOR-C Jaquan Cristhian Work Phone: [facility] 02-13-2023 17:30-0500 SaO2% (BldA) [Mass fraction] 100 % SALES COUNSELOR-C Jaquan Cristhian Work Phone: [facility] 02-13-2023 17:30-0500 Systolic blood pressure 121 mm[Hg] SALES COUNSELOR-C Jaquan Cristhian Work Phone: [facility] 02-13-2023 10:43-0500 Body height 167.64 cm SALES COUNSELOR-C Jaquan Cristhian Work Phone: [facility] 02-13-2023 10:43-0500 Body weight 83 kg SALES COUNSELOR-C Jaquan Cristhian Work Phone: [facility] 02-13-2023 10:42-0500 Body temperature 98.2 [degF] SALES COUNSELOR-C Jaquan Cristhian Work Phone: [facility] 12-31-2022 15:49-0500 Diastolic blood pressure 82 mm[Hg] Mateusz Jose [facility] 12-31-2022 15:49-0500 Heart rate 81 /min Mateusz Jose [facility] 12-31-2022 15:49-0500 Mean blood pressure 96 mm[Hg] Mateusz Jose [facility] 12-31-2022 15:49-0500 Respiratory rate 16 /min Mateusz Jose [facility] 12-31-2022 15:49-0500 SaO2% (BldA) [Mass fraction] 100 % Mateusz Jose [facility] 12-31-2022 15:49-0500 Systolic blood pressure 124 mm[Hg] Mateusz Jose [facility] 12-31-2022 15:40-0500 Hourly Rounding Mateusz Jose [facility] 12-31-2022 15:40-0500 Promise to Return Mateusz Jose [facility] 12-31-2022 15:00-0500 Diastolic blood pressure 78 mm[Hg] Mateusz Jose [facility] 12-31-2022 15:00-0500 Heart rate 76 /min Mateusz Jose [facility] 12-31-2022 15:00-0500 Mean blood pressure 91 mm[Hg] Mateusz Jose [facility] 12-31-2022 15:00-0500 Systolic blood pressure 117 mm[Hg] Mateusz Jose [facility] 12-31-2022 14:40-0500 Hourly Rounding Mateusz Jose [facility] 12-31-2022 14:40-0500 Promise to Return Mateusz Jose [facility] 12-31-2022 14:00-0500 Diastolic blood pressure 83 mm[Hg] Mateusz Jose [facility] 12-31-2022 14:00-0500 Heart rate 71 /min Mateusz Jose [facility] 12-31-2022 14:00-0500 Mean blood pressure 99 mm[Hg] Mateusz Jose [facility] 12-31-2022 14:00-0500 Systolic blood pressure 132 mm[Hg] Mateusz Jose [facility] 12-31-2022 13:40-0500 Hourly Rounding Mateusz Garcia [facility] 12-31-2022 13:40-0500 Promise to Return Mateusz Garcia [facility] 12-31-2022 12:42-0500 Body temperature 97.7 [degF] Mateusz Jose [facility] 12-31-2022 12:42-0500 Heart rate 88 /min Mateusz Jose [facility] 12-04-2022 09:54-0400 Body height 166 cm Agustin Zamorano MD Work Phone: [facility] 12-04-2022 09:54-0400 Body weight 83.78 kg Agustin Zamorano MD Work Phone: [facility] 12-04-2022 09:54-0400 Diastolic blood pressure 62 mm[Hg] Agustin Zamorano MD Work Phone: [facility] 12-04-2022 09:54-0400 Heart rate 91 /min Agustin Zamorano MD Work Phone: [facility] 12-04-2022 09:54-0400 Systolic blood pressure 112 mm[Hg] Agustin Zamorano MD Work Phone: [facility] 11-04-2022 12:00-0400 Body temperature 97.7 [degF] Rheu Jeanne Work Phone: [facility] 11-04-2022 12:00-0400 Diastolic blood pressure 65 mm[Hg] Rheu Jeanne Work Phone: [facility] 11-04-2022 12:00-0400 Heart rate 97 /min Rheu Jeanne Work Phone: [facility] 11-04-2022 09:19-0400 Body height 167.6 cm Deacon Kat MD Work Phone: [facility] 11-04-2022 09:19-0400 Body temperature 97.81 [degF] Deacon Kat MD Work Phone: [facility] 11-04-2022 09:19-0400 Body weight 83.46 kg Deacon Kat MD Work Phone: [facility] 11-04-2022 09:19-0400 Diastolic blood pressure 81 mm[Hg] Deacon Kat MD Work Phone: [facility] 11-04-2022 09:19-0400 Heart rate 82 /min Deacon Kat MD Work Phone: [facility] 11-04-2022 09:19-0400 Respiratory rate 18 /min Deacon Kat MD Work Phone: [facility] 11-04-2022 09:19-0400 SaO2% (BldA) [Mass fraction] 98 % Deacon Kat MD Work Phone: [facility] 11-04-2022 09:19-0400 Systolic blood pressure 125 mm[Hg] Deacon Kat MD Work Phone: [facility] 11-02-2022 13:52-0400 Diastolic blood pressure 82 mm[Hg] Dimitri Walker MD Work Phone: [employer] 11-02-2022 13:52-0400 Heart rate 82 /min Dimitri Walker MD Work Phone: [employer] 11-02-2022 13:52-0400 Respiratory rate 18 /min Dimitri Walker MD Work Phone: [employer] 11-02-2022 13:52-0400 Systolic blood pressure 128 mm[Hg] Dimitri Walker MD Work Phone: [employer] 11-02-2022 10:35-0400 Body mass index (BMI) [Ratio] 30.18 kg/m2 Dimitri Walker MD Work Phone: [employer] 11-02-2022 10:35-0400 Body weight 84.82 kg Dimitri Walker MD Work Phone: [employer] Comment on above: stand up scale triage room 11-02-2022 10:34-0400 Body temperature 98.29 [degF] Dimitri Walker MD Work Phone: [employer] 11-02-2022 10:34-0400 SaO2% (BldA) [Mass fraction] 98 % Dimitri Walker MD Work Phone: [employer] 10-31-2022 08:30-0400 Diastolic blood pressure 67 mm[Hg] Jalyn Suresh DO Work Phone: [facility] [employer] 10-31-2022 08:30-0400 Systolic blood pressure 120 mm[Hg] Jalyn Suresh DO Work Phone: [employer] 10-31-2022 06:32-0400 Body temperature 97.7 [degF] Jalyn Suresh DO Work Phone: [facility] [employer] 10-31-2022 06:32-0400 Heart rate 92 /min Jalyn Suresh DO Work Phone: [facility] [employer] 10-31-2022 06:32-0400 Respiratory rate 19 /min Jalyn Suresh DO Work Phone: [facility] 10-31-2022 06:32-0400 SaO2% (BldA) [Mass fraction] 100 % Jalyn Suresh DO Work Phone: [facility] 10-20-2022 11:52-0400 Diastolic blood pressure 86 mm[Hg] Earnest Johnie [facility] 10-20-2022 11:52-0400 Heart rate 75 /min Earnest Johnie [facility] 10-20-2022 11:52-0400 Respiratory rate 15 /min Earnest Blancoe [facility] 10-20-2022 11:52-0400 SaO2% (BldA) [Mass fraction] 99 % Earnest Johnie [facility] 10-20-2022 11:52-0400 Systolic blood pressure 141 mm[Hg] Earnest Johnie [facility] 10-20-2022 10:31-0400 Diastolic blood pressure 70 mm[Hg] Earnest Johnie [facility] 10-20-2022 10:31-0400 Heart rate 70 /min Earnest Johnie [facility] 10-20-2022 10:31-0400 Mean blood pressure 92 mm[Hg] Earnest Johnie [facility] 10-20-2022 10:31-0400 Respiratory rate 16 /min Earnest Johnie [facility] 10-20-2022 10:31-0400 SaO2% (BldA) [Mass fraction] 100 % Earnest Johnie [facility] 10-20-2022 10:31-0400 Systolic blood pressure 137 mm[Hg] Earnest Johnie [facility] 10-20-2022 09:17-0400 Diastolic blood pressure 63 mm[Hg] Earnest Blancoe [facility] 10-20-2022 09:17-0400 Heart rate 77 /min Earnest Johnie [facility] 10-20-2022 09:17-0400 Mean blood pressure 85 mm[Hg] Earnest Johnie [facility] 10-20-2022 09:17-0400 Respiratory rate 18 /min Earnest Johnie [facility] 10-20-2022 09:17-0400 SaO2% (BldA) [Mass fraction] 100 % Earnest Johnie [facility] 10-20-2022 09:17-0400 Systolic blood pressure 128 mm[Hg] Earnest Blancoe [facility] 10-20-2022 08:17-0400 Body temperature 97.88 [degF] Earnest Johnie [facility] 10-19-2022 13:30-0400 Diastolic blood pressure 82 mm[Hg] Earnest Johnie [facility] 10-19-2022 13:30-0400 Heart rate 67 /min Earnest Blancoe [facility] 10-19-2022 13:30-0400 Mean blood pressure 100 mm[Hg] Earnest Johnie [facility] 10-19-2022 13:30-0400 Respiratory rate 20 /min Earnest Blancoe [facility] 10-19-2022 13:30-0400 SaO2% (BldA) [Mass fraction] 100 % Earnest Johnie [facility] 10-19-2022 13:30-0400 Systolic blood pressure 136 mm[Hg] Earnest Jett [facility] 10-19-2022 13:00-0400 Heart rate 61 /min Earnest Jett [facility] 10-19-2022 13:00-0400 Respiratory rate 18 /min Earnest Jett [facility] 10-19-2022 13:00-0400 Systolic blood pressure 127 mm[Hg] Earnest Jett [facility] 10-19-2022 12:30-0400 Diastolic blood pressure 80 mm[Hg] Earnest Jett [facility] 10-19-2022 12:30-0400 Heart rate 60 /min Earnest Jett [facility] 10-19-2022 12:30-0400 Mean blood pressure 97 mm[Hg] Earnest Jett [facility] 10-19-2022 12:30-0400 Respiratory rate 20 /min Earnest Jett [facility] 10-19-2022 12:30-0400 SaO2% (BldA) [Mass fraction] 100 % Earnest Jett [facility] 10-19-2022 12:30-0400 Systolic blood pressure 132 mm[Hg] Earnest Jett [facility] 10-19-2022 08:34-0400 Body temperature 96.62 [degF] Earnest Jett [facility] 10-19-2022 08:34-0400 Heart rate 73 /min Earnest Blancoe [facility] 09-28-2022 07:54-0400 Body height 167.[address] Work Phone: [facility] 09-28-2022 07:54-0400 Body weight 83.[address] Work Phone: [facility] 09-18-2022 15:12-0400 Body height 167.6 cm Breanna Stern SUPPORT SERVICES REP.LABEL FOLDER Work Phone: [facility] 09-18-2022 15:12-0400 Body temperature 97.5 [degF] Breanna Stern SUPPORT SERVICES REP.LABEL FOLDER Work Phone: [facility] 09-18-2022 15:12-0400 Body weight 83.46 kg Breanna Stern SUPPORT SERVICES REP.LABEL FOLDER Work Phone: [facility] 09-18-2022 15:12-0400 Diastolic blood pressure 88 mm[Hg] Breanna Stern SUPPORT SERVICES REP.LABEL FOLDER Work Phone: [facility] 09-18-2022 15:12-0400 Heart rate 65 /min Breanna Stern SUPPORT SERVICES REP.LABEL FOLDER Work Phone: [facility] 09-18-2022 15:12-0400 SaO2% (BldA) [Mass fraction] 99 % Breanna Stern SUPPORT SERVICES REP.LABEL FOLDER Work Phone: [facility] 09-18-2022 15:12-0400 Systolic blood pressure 118 mm[Hg] Breanna Stern SUPPORT SERVICES REP.LABEL FOLDER Work Phone: [facility] 07-29-2022 08:40-0400 Blood Pressure Location Rajni Lue [facility] 07-29-2022 08:40-0400 Diastolic blood pressure 86 mm[Hg] Rajni Lue [facility] 07-29-2022 08:40-0400 Heart rate 71 /min Arjni Lue [facility] 07-29-2022 08:40-0400 Systolic blood pressure 127 mm[Hg] Rajni Lue [facility] 07-22-2022 10:08-0400 Body height 167.6 cm Kasie Avalos MD Work Phone: [facility] 07-22-2022 10:08-0400 Body temperature 98.1 [degF] Kasie Avalos MD Work Phone: [facility] 07-22-2022 10:08-0400 Body weight 79.92 kg Kasie Avalos MD Work Phone: [facility] 07-22-2022 10:08-0400 Diastolic blood pressure 89 mm[Hg] aKsie Avalos MD Work Phone: [facility] 07-22-2022 10:08-0400 Heart rate 72 /min Kasie Avalos MD Work Phone: [facility] 07-22-2022 10:08-0400 SaO2% (BldA) [Mass fraction] 100 % Kasie Avalos MD Work Phone: [facility] 07-22-2022 10:08-0400 Systolic blood pressure 136 mm[Hg] Kasie Avalos MD Work Phone: [facility] 06-12-2022 10:00-0400 Body height 167.6 cm Aliyah Washburn PA-C Work Phone: [facility] 06-12-2022 10:00-0400 Body temperature 97.5 [degF] Aliyah Washburn PA-C Work Phone: [facility] 06-12-2022 10:00-0400 Body weight 84.37 kg Aliyah Washburn PA-C Work Phone: [facility] 06-12-2022 10:00-0400 Diastolic blood pressure 78 mm[Hg] Aliyah Washburn PA-C Work Phone: [facility] 06-12-2022 10:00-0400 Heart rate 68 /min Aliyah Washburn PA-C Work Phone: [facility] 06-12-2022 10:00-0400 Systolic blood pressure 123 mm[Hg] Aliyah Washburn PA-C Work Phone: [facility] 06-10-2022 17:43-0400 Diastolic blood pressure 74 mm[Hg] [facility] 06-10-2022 17:43-0400 Heart rate 65 /min [facility] 06-10-2022 17:43-0400 Mean blood pressure 90 mm[Hg] [facility] 06-10-2022 17:43-0400 Respiratory rate 16 /min [facility] 06-10-2022 17:43-0400 SaO2% (BldA) [Mass fraction] 100 % [facility] 06-10-2022 17:43-0400 Systolic blood pressure 122 mm[Hg] [facility] 06-10-2022 17:00-0400 Diastolic blood pressure 77 mm[Hg] [facility] 06-10-2022 17:00-0400 Heart rate 66 /min [facility] 06-10-2022 17:00-0400 Mean blood pressure 94 mm[Hg] [facility] 06-10-2022 17:00-0400 Systolic blood pressure 129 mm[Hg] [facility] 06-10-2022 16:00-0400 Heart rate 83 /min [facility] 06-10-2022 16:00-0400 Mean blood pressure 93 mm[Hg] [facility] 06-10-2022 16:00-0400 Systolic blood pressure 130 mm[Hg] [facility] 06-10-2022 12:32-0400 Body temperature 97.7 [degF] [facility] 06-10-2022 12:32-0400 Heart rate 88 /min [facility] 06-10-2022 12:32-0400 Respiratory rate 18 /[facility] 15:30-0500 Diastolic blood pressure 70 mm[Hg] Deacon Kat MD Work Phone: [facility] 03-06-2022 15:30-0500 Heart rate 67 /min Deacon Kat MD Work Phone: [facility] 03-06-2022 15:30-0500 Respiratory rate 16 /min Deacon Kat MD Work Phone: [facility] 03-06-2022 15:30-0500 SaO2% (BldA) [Mass fraction] 100 % Deacon Kat MD Work Phone: [facility] 03-06-2022 15:30-0500 Systolic blood pressure 105 mm[Hg] Deacon Kat MD Work Phone: [facility] 03-06-2022 13:00-0500 Body temperature 96.8 [degF] Deacon Kat MD Work Phone: [facility] 03-05-2022 09:33-0500 Body weight 89.81 kg Breanna Stern SUPPORT SERVICES REP.LABEL FOLDER Work Phone: [facility] 02-04-2022 09:23-0500 Body height 167.[address] Work Phone: [facility] 02-04-2022 09:23-0500 Body weight 93.[address] Work Phone: [facility] 02-03-2022 14:55-0500 Body height 167.6 cm Breanna Stern SUPPORT SERVICES REP.LABEL FOLDER Work Phone: [facility] 02-03-2022 14:55-0500 Body temperature 97 [degF] Breanna Stern SUPPORT SERVICES REP.LABEL FOLDER Work Phone: [facility] 02-03-2022 14:55-0500 Body weight 93.44 kg Breanna Stern SUPPORT SERVICES REP.LABEL FOLDER Work Phone: [facility] 02-03-2022 14:55-0500 Diastolic blood pressure 81 mm[Hg] Breanna Stern SUPPORT SERVICES REP.LABEL FOLDER Work Phone: [facility] 02-03-2022 14:55-0500 Heart rate 76 /min Breanna Jarred SUPPORT SERVICES REP.LABEL FOLDER Work Phone: [facility] 02-03-2022 14:55-0500 SaO2% (BldA) [Mass fraction] 99 % Breanna Stern SUPPORT SERVICES REP.LABEL FOLDER Work Phone: [facility] 02-03-2022 14:55-0500 Systolic blood pressure 128 mm[Hg] Breanna Stern SUPPORT SERVICES REP.LABEL FOLDER Work Phone: [facility] 01-28-2022 08:41-0500 Body height 167.6 cm Pacc 2 Work Phone: [facility] 01-28-2022 08:41-0500 Body temperature 97.9 [degF] Pacc 2 Work Phone: [facility] 01-28-2022 08:41-0500 Body weight 94.8 kg Pacc 2 Work Phone: [facility] 01-28-2022 08:41-0500 Diastolic blood pressure 85 mm[Hg] Pacc 2 Work Phone: [facility] 01-28-2022 08:41-0500 Heart rate 65 /min Pacc 2 Work Phone: [facility] 01-28-2022 08:41-0500 Respiratory rate 16 /min Pacc 2 Work Phone: [facility] 01-28-2022 08:41-0500 SaO2% (BldA) [Mass fraction] 100 % Pacc 2 Work Phone: [facility] 01-28-2022 08:41-0500 Systolic blood pressure 131 mm[Hg] Pacc 2 Work Phone: [facility] 01-02-2022 11:06-0500 Body weight 92.99 kg Sabina Vacco SUPPORT SERVICES REP.LABEL FOLDER Work Phone: [facility] 12-25-2021 10:10-0500 Diastolic blood pressure 76 mm[Hg] Britt Cross MD Work Phone: [facility] 12-25-2021 10:10-0500 Heart rate 74 /min Britt Cross MD Work Phone: [facility] 12-25-2021 10:10-0500 Respiratory rate 18 /min Britt Cross MD Work Phone: [facility] 12-25-2021 10:10-0500 SaO2% (BldA) [Mass fraction] 100 % Britt Cross MD Work Phone: [facility] 12-25-2021 10:10-0500 Systolic blood pressure 140 mm[Hg] Britt Cross MD Work Phone: [facility] 12-25-2021 08:26-0500 Body height 167.6 cm Britt Cross MD Work Phone: [facility] 12-25-2021 08:26-0500 Body temperature 98.1 [degF] Britt Cross MD Work Phone: [facility] 12-25-2021 08:26-0500 Body weight 92.99 kg Britt Cross MD Work Phone: [facility] 10-09-2021 15:44-0400 Body height 167.6 cm Sabina Vacco SUPPORT SERVICES REP.LABEL FOLDER Work Phone: [facility] 10-09-2021 15:44-0400 Body weight 89.81 kg Sabina Vacco SUPPORT SERVICES REP.LABEL FOLDER Work Phone: [facility] 08-30-2021 03:47-0400 Diastolic blood pressure 70 mm[Hg] Pablo Atwood DO Work Phone: [employer] [facility] 08-30-2021 03:47-0400 Systolic blood pressure 130 mm[Hg] Pablo Atwood DO Work Phone: [employer] [facility] 08-30-2021 03:46-0400 Body temperature 100.4 [degF] Pablo Atwood DO Work Phone: [employer] 08-30-2021 03:46-0400 Heart rate 107 /min Pablo Atwood DO Work Phone: [employer] 08-30-2021 03:46-0400 Respiratory rate 19 /min Pablo Atwood DO Work Phone: [employer] 08-30-2021 03:46-0400 SaO2% (BldA) [Mass fraction] 96 % Pablo Atwood DO Work Phone: [employer] 08-28-2021 07:54-0400 Body height 167.[address] Work Phone: [facility] 08-28-2021 07:54-0400 Body weight 90.[address] Work Phone: [facility] 08-17-2021 12:00-0400 Body height 167.64 cm Shanna June Other [employer] Other 08-17-2021 12:00-0400 Body mass index (BMI) [Ratio] 33.08 kg/m2 Shanna June Other [employer] Other 08-17-2021 12:00-0400 Body temperature 98.1 [degF] Shanna June Other [employer] Other 08-17-2021 12:00-0400 Body weight 92.99 kg Shanna June Other [employer] Other 08-17-2021 12:00-0400 Diastolic blood pressure 80 mm[Hg] Shanna June Other [employer] Other 08-17-2021 12:00-0400 Respiratory rate 18 /min Shanna June Other [employer] Other 08-17-2021 12:00-0400 SaO2% (BldA) [Mass fraction] 99 % Shanna June Other [employer] Other 08-17-2021 12:00-0400 Systolic blood pressure 137 mm[Hg] Shanna June Other [employer] Other 07-27-2021 14:25-0400 Respiratory rate 18 /min Angela Do MD Work Phone: [employer] 07-27-2021 14:03-0400 SaO2% (BldA) [Mass fraction] 98 % Angela Do MD Work Phone: [employer] 07-27-2021 13:27-0400 Diastolic blood pressure 44 mm[Hg] Angela Do MD Work Phone: [employer] 07-27-2021 13:27-0400 Systolic blood pressure 110 mm[Hg] Angela Do MD Work Phone: [employer] 07-27-2021 10:18-0400 Body mass index (BMI) [Ratio] 31.47 kg/m2 Angela Do MD Work Phone: [employer] 07-27-2021 10:18-0400 Body temperature 98.6 [degF] Angela Do MD Work Phone: [employer] 07-27-2021 10:18-0400 Body weight 88.45 kg Angela Do MD Work Phone: [employer] 07-27-2021 10:18-0400 Heart rate 71 /min Angela Do MD Work Phone: [employer] 03-31-2021 11:00-0500 Body height 167.64 cm Shanna June Other [employer] Other 03-31-2021 11:00-0500 Body mass index (BMI) [Ratio] 33.08 kg/m2 Shanna June Other [employer] Other 03-31-2021 11:00-0500 Body temperature 98 [degF] Shanna June Other [employer] Other 03-31-2021 11:00-0500 Body weight 92.99 kg Shanna June Other [employer] Other 03-31-2021 11:00-0500 Diastolic blood pressure 91 mm[Hg] Shanna June Other [employer] Other 03-31-2021 11:00-0500 Respiratory rate 18 /min Shanna June Other [employer] Other 03-31-2021 11:00-0500 SaO2% (BldA) [Mass fraction] 100 % Shanna June Other [employer] Other 03-31-2021 11:00-0500 Systolic blood pressure 142 mm[Hg] Shanna June Other [employer] Other 01-28-2021 12:00-0500 Body height 167.64 cm Shanna June Other [employer] Other 01-28-2021 12:00-0500 Body mass index (BMI) [Ratio] 33.08 kg/m2 Shanna Granadosault Other [employer] Other 01-28-2021 12:00-0500 Body temperature 98 [degF] Shanna June Other [employer] Other 01-28-2021 12:00-0500 Body weight 92.99 kg Shanna June Other [employer] Other 01-28-2021 12:00-0500 Diastolic blood pressure 92 mm[Hg] Shanna June Other [employer] Other 01-28-2021 12:00-0500 Respiratory rate 18 /min Shanna June Other [employer] Other 01-28-2021 12:00-0500 SaO2% (BldA) [Mass fraction] 100 % Shanna June Other [employer] Other 01-28-2021 12:00-0500 Systolic blood pressure 143 mm[Hg] Shanna June Other [employer] Other 12-17-2020 17:30-0400 Body height 167.64 cm Shanna Granadosault Other [employer] Other 12-17-2020 17:30-0400 Body mass index (BMI) [Ratio] 32.92 kg/m2 Shanna Granadosault Other [employer] Other 12-17-2020 17:30-0400 Body temperature 98.2 [degF] Shanna Granadosault Other [employer] Other 12-17-2020 17:30-0400 Body weight 92.53 kg Shannasada June Other [employer] Other 12-17-2020 17:30-0400 Diastolic blood pressure 71 mm[Hg] Shanna June Other [employer] Other 12-17-2020 17:30-0400 Respiratory rate 18 /min Shanna June Other [employer] Other 12-17-2020 17:30-0400 SaO2% (BldA) [Mass fraction] 100 % Shanna June Other [employer] Other 12-17-2020 17:30-0400 Systolic blood pressure 117 mm[Hg] Shanna June Other [employer] Other 12-14-2020 15:07-0400 Body height 167.6 cm Shanna uJne SUPPORT SERVICES REP - SALES COUNSELOR Work Phone: [employer] Work Phone: 12-14-2020 15:07-0400 Body mass index (BMI) [Ratio] 32.77 kg/m2 Shanna June SUPPORT SERVICES REP - SALES COUNSELOR Work Phone: [employer] Work Phone: 12-14-2020 15:07-0400 Body temperature 98.8 [degF] Shanna June SUPPORT SERVICES REP - SALES COUNSELOR Work Phone: [employer] Work Phone: 12-14-2020 15:07-0400 Body weight 92.08 kg Shanna June SUPPORT SERVICES REP - SALES COUNSELOR Work Phone: [employer] Work Phone: 12-14-2020 15:07-0400 Diastolic blood pressure 90 mm[Hg] Shanna June SUPPORT SERVICES REP - SALES COUNSELOR Work Phone: [employer] Work Phone: 12-14-2020 15:07-0400 Heart rate 85 /min Shanna June SUPPORT SERVICES REP - SALES COUNSELOR Work Phone: [employer] Work Phone: 12-14-2020 15:07-0400 Respiratory rate 20 /min Shanna June SUPPORT SERVICES REP - SALES COUNSELOR Work Phone: [employer] Work Phone: 12-14-2020 15:07-0400 SaO2% (BldA) [Mass fraction] 100 % Shanna June SUPPORT SERVICES REP - SALES COUNSELOR Work Phone: [employer] Work Phone: 12-14-2020 15:07-0400 Systolic blood pressure 139 mm[Hg] Shanna June SUPPORT SERVICES REP - SALES COUNSELOR Work Phone: [employer] Work Phone: 07-02-2020 13:16-0400 Diastolic blood pressure 56 mm[Hg] Vaughn Ceja MD Work Phone: [employer] 07-02-2020 13:16-0400 Heart rate 71 /min Vaughn Ceja MD Work Phone: [employer] 07-02-2020 13:16-0400 Respiratory rate 18 /min Vaughn Ceja MD Work Phone: [employer] 07-02-2020 13:16-0400 SaO2% (BldA) [Mass fraction] 99 % Vaughn Ceja MD Work Phone: [employer] 07-02-2020 13:16-0400 Systolic blood pressure 165 mm[Hg] Vaughn Ceja MD Work Phone: [employer] 07-02-2020 12:44-0400 Body temperature 97.39 [degF] Vaughn Ceja MD Work Phone: [employer] 07-02-2020 12:35-0400 Body height 167.6 cm Vaughn Ceja MD Work Phone: [employer] [facility] 07-02-2020 12:35-0400 Body mass index (BMI) [Ratio] 37.12 kg/m2 Vaughn Ceja MD Work Phone: [employer] [facility] 07-02-2020 12:35-0400 Body weight 104.33 kg Vaughn Ceja MD Work Phone: [employer] [facility] 01-30-2020 17:34-0500 BP Diastolic 76 mm[Hg] [facility] [employer] [facility] 01-30-2020 17:34-0500 BP Systolic 139 mm[Hg] [facility] 01-30-2020 17:34-0500 Pulse (Heart Rate) 87 /min [facility] [employer] [facility] 01-30-2020 17:34-0500 Pulse Oximetry 100 % [facility] [employer] [facility] 01-30-2020 17:34-0500 Respiratory Rate 18 /min [facility] [employer] [facility] 01-30-2020 13:22-0500 Height 167.6 cm [facility] [employer] [facility] 01-30-2020 13:16-0500 Body Temperature 97.81 [degF] [facility] Encounters Encounter Date Encounter Type Care Provider Facility Start: 08-14-2023 End: 08-14-2023 Emergency department patient visit PAO Morrow Work Phone: [facility] Work Phone: Start: 08-12-2023 Telephone encounter Radha Arzate Gastroenterology Comment on above: Education Of Patient /family; Reminder Call (08/26/23 appt confirmed) Start: 08-09-2023 End: 08-09-2023 ambulatory VIC RAMOS Facility:[facility] Start: 08-09-2023 End: 08-09-2023 Patient encounter procedure Vic Ramos MD Work Phone: Pain Management Comment on above: Neuralgia and neurit is (Primary Dx); Median arcuate ligament syndrome (HCC) Start: 08-07-2023 End: 08-08-2023 Evaluation and management of inpatient SEN MARCUS Facility:[facility] Start: 08-05-2023 ambulatory Boogie Sandy Work Phone: Pain Management Comment on above: Ketamine nasal spray Medication Renewal Start: 08-04-2023 Telephone encounter Boogie Tompkins ud, MD Work Phone: Pain Management Comment on above: Medication Problem Start: 08-04-2023 End: 08-06-2023 Evaluation and management of inpatient [facility] Facility:[facility] Start: 08-04-2023 End: 08-04-2023 ambulatory Rajni Rouse Facility:[facility] Start: 08-04-2023 End: 08-04-2023 Patient encounter procedure Boogie Murguia MD Work Phone: Pain Management Comment on above: Chronic abdominal pa in (Primary Dx); Gastroesophageal reflux disease without esophagitis; Neuralgia and neuritis; Median arcuate ligament syndrome (HCC); S/P gastric bypass Start: 07-31-2023 End: 07-31-2023 Emergency department patient visit PAO Morrow Work Phone: [facility] Work Phone: Start: 07-30-2023 End: 07-31-2023 Emergency department patient visit THOMAS M YOGI Facility:[facility] Start: 07-28-2023 End: 07-28-2023 ambulatory TINO MONAHAN Not Available Start: 07-19-2023 Orders Only Deacon sousa MD Work Phone: General Surgery Comment on above: Chronic nausea (Prim reji Dx); History of laparoscopic partial gastrectomy; History of sphincterotomy of sphincter of Oddi; Median arcuate ligament syndrome (HCC) Start: 07-17-2023 End: 07-20-2023 Evaluation and management of inpatient DEACON KAT Facility:[facility] Start: 07-17-2023 End: 07-17-2023 Evaluation and management of inpatient SALES COUNSELOR-C Jaquan Morrow Work Phone: [facility] [place] [facility] Work Phone: Start: 07-15-2023 End: 07-15-2023 ambulatory JAQUAN MORROW Facility:[facility] Start: 07-13-2023 Telephone encounter Natalie Jameson LPN Gastroenterology Comment on above: Appointment Start: 07-13-2023 ambulatory OLGA Lei ty:JENNIFER Edmondson Start: 07-09-2023 End: 07-09-2023 [facility] Pablo Lebron [facility] Work Phone: Neurology Comment on above: ARSALAN (generalized anx iety disorder) (Primary Dx); Panic disorder without agoraphobia; Moderate recurrent major depression (HCC) Start: 07-06-2023 End: 07-06-2023 Emergency department patient visit JAQUAN MORROW Facility:[facility] Start: 07-06-2023 End: 07-06-2023 ambulatory Francisco J Steve MD Work Phone: Urology Start: 07-06-2023 End: 07-06-2023 Patient encounter procedure Francisco J Steve MD Work Phone: Urology Comment on above: Urinary frequency (P rimary Dx); Urgency of urination Start: 06-29-2023 End: 07-05-2023 ambulatory DAVID VALADEZ [facility] Start: 06-29-2023 End: 06-29-2023 Subsequent hospital visit by physician Sheridan Garciav1 [employer] [facility] Start: 06-29-2023 End: 07-03-2023 Evaluation and management of inpatient David Valadez DO Work Phone: [facility] Comment on above: Epigastric pain (Loretta cecy Dx); Median arcuate ligament syndrome (CMS-HCC); Nausea and vomiting, unspecified vomiting type; Other specified hyperalimentation; Generalized abdominal pain Start: 06-29-2023 End: 06-29-2023 ambulatory MARCOS MORENO Not Available Start: 06-22-2023 End: 06-22-2023 Office outpatient visit 10 minutes Woosup M Park MD Work Phone: [facility] Comment on above: Median arcuate ligam ent syndrome (CMS-HCC) (Primary Dx) Start: 06-22-2023 End: 06-22-2023 ambulatory SHERRY MAGAÑA [facility] Start: 06-18-2023 End: 06-18-2023 Emergency department patient visit JAQUAN MORROW Facility:[facility] Start: 06-18-2023 End: 06-18-2023 ambulatory Deacon Kat Facility:[facility] Start: 06-18-2023 End: 06-18-2023 Patient encounter procedure Breanna Stern APRN.LABEL FOLDER Work Phone: General Surgery Comment on above: Sudden onset of sharon re abdominal pain (Primary Dx); Nausea and vomiting, unspecified vomiting type; PEG (percutaneous endoscopic gastrostomy) status (HCC) Start: 06-17-2023 Telephone encounter May Ramey APRN.LABEL FOLDER Work Phone: Pain Management Comment on above: Appointment Start: 06-17-2023 End: 06-30-2023 ambulatory Jaquan L Cristhian Facility:[id number] Start: 06-15-2023 Telephone encounter Deacon shahid MD Work Phone: General Surgery Comment on above: Patient Update; Umm ent Question Start: 06-14-2023 Telephone encounter Stephanie Sumner DO Work Phone: [facility] Start: 06-14-2023 End: 06-14-2023 ambulatory Jaquan L Cristhian Facility:[facility] Afsaneh suarez Start: 06-10-2023 End: 06-15-2023 ambulatory Jaquan L Cristhian Facility:[id number] Start: 06-09-2023 End: 06-09-2023 [facility] Pablo Lebron PSYD Work Phone: Neurology Comment on above: ARSALAN (generalized anx iety disorder) (Primary Dx); Panic disorder without agoraphobia; Moderate recurrent major depression (HCC) Start: 06-06-2023 End: 06-09-2023 Evaluation and management of inpatient MAIDACHRISTIANO LUCY Facility:[facility] Start: 06-03-2023 End: 06-03-2023 ambulatory RYLEE THACKER Facility:[facility] Start: 06-02-2023 End: 06-02-2023 ambulatory Jaquan L Cristhian Facility:[facility] Afsaneh suarez Start: 06-01-2023 End: 06-01-2023 ambulatory Vic Ramos MD Work Phone: Pain Management Comment on above: Neuralgia and neurit is (Primary Dx); Gastroesophageal reflux disease without esophagitis; Median arcuate ligament syndrome (HCC); S/P gastric bypass Start: 06-01-2023 End: 06-01-2023 Telemedicine consultation with patient Vic Ramos MD Work Phone: [facility] Start: 05-31-2023 End: 06-09-2023 ambulatory Jaquan L Cristhian Facility:[id number] Start: 05-30-2023 End: 05-31-2023 Emergency department patient visit SALES COUNSELOR-C Jaquan Morrow Work Phone: [facility] Work Phone: Start: 05-30-2023 Telephone encounter Deacon shahid MD Work Phone: General Surgery Start: 05-28-2023 End: 05-28-2023 Refill Kasie Avalos MD Work Phone: Gastroenterology Comment on above: Refill Request Medication Problem Start: 05-25-2023 End: 05-28-2023 Evaluation and management of inpatient DEACON KAT Facility:[facility] Start: 05-24-2023 Telephone encounter Deacon shahid MD Work Phone: General Surgery Comment on above: Patient Education; C are Coordinator - Other Start: 05-24-2023 End: 05-26-2023 ambulatory Mateusz Garcia Facility:[id number] Start: 05-20-2023 End: 05-20-2023 Emergency department patient visit TIFFANIE KEITH Facility:[facility] Start: 05-19-2023 End: 05-19-2023 ambulatory Jaquan L Cristhian Facility:[facility] Afsaneh suarez Start: 05-18-2023 Telephone encounter Deacon shahid MD Work Phone: General Surgery Comment on above: Received Outside Med ical Records Start: 05-18-2023 End: 05-22-2023 Evaluation and management of inpatient JAQUAN L CRISTHIAN Facility:[facility] Start: 05-17-2023 End: 05-17-2023 ambulatory Deacon Kat MD Work Phone: General Surgery Comment on above: Nausea and vomiting, unspecified vomiting type (Primary Dx) Start: 05-17-2023 End: 05-17-2023 Telemedicine consultation with patient Deacon Kat MD Work Phone: [facility] Start: 05-17-2023 End: 05-17-2023 [facility] Start: 05-17-2023 End: 05-19-2023 ambulatory Jaquan L Cristhian Facility:[id number] Start: 05-12-2023 End: 05-14-2023 ambulatory Moncho Trejo Facility:[facility] Start: 05-12-2023 End: 05-14-2023 Observation Moncho Trejo [facility] Start: 05-11-2023 End: 05-11-2023 Emergency department patient visit Mateusz Garcia [facility] Start: 05-10-2023 Telephone encounter Deacon shahid MD Work Phone: General Surgery Comment on above: Patient Question Start: 05-10-2023 End: 05-10-2023 ambulatory Jaquan L Cristhian Facility:[facility] Afsaneh suarez Start: 05-09-2023 End: 05-09-2023 Emergency department patient visit Mateusz Garcia [facility] Start: 05-07-2023 Telephone encounter Santa Hart RN Ambulatory Surgery Comment on above: Appointment (Cancel EGD) Start: 05-06-2023 End: 05-06-2023 Emergency department patient visit Mateusz Garcia [facility] Start: 04-30-2023 End: 04-30-2023 ambulatory Jaquan Morrow Facility:[facility] Afsaneh suarez Start: 04-28-2023 End: 04-28-2023 ambulatory KASIE AVALOS Facility:[facility] Start: 04-28-2023 End: 04-28-2023 Patient encounter procedure Kasie Avalos MD Work Phone: Gastroenterology Comment on above: Gastroesophageal ref lux disease, unspecified whether esophagitis present (Primary Dx); Constipation, unspecified constipation type Start: 04-20-2023 End: 04-20-2023 Office outpatient visit 10 minutes Sherry Magaña MD Work Phone: [facility] Comment on above: Median arcuate ligam ent syndrome (CMS/HCC) (Primary Dx) Start: 04-20-2023 End: 04-20-2023 ambulatory [facility] Start: 04-07-2023 End: 04-07-2023 Postop follow up visit related to original px Sherry Magaña MD Work Phone: [facility] Comment on above: Median arcuate ligam ent syndrome (CMS/HCC) (Primary Dx) Start: 04-07-2023 End: 04-07-2023 ambulatory [facility] Start: 04-07-2023 End: 04-07-2023 Admission to same day surgery center Deacon Kat MD Work Phone: Endocrinology BMI Comment on above: Bariatric surgery [facility] (Primary Dx); Dietary zinc deficiency; Vitamin D deficiency Start: 04-07-2023 End: 04-07-2023 ambulatory Deacon Kat Facility:[facility] Start: 04-07-2023 End: 04-07-2023 Telemedicine consultation with patient Deacon Kat MD Work Phone: [facility] Start: 04-06-2023 End: 04-06-2023 Emergency department patient visit SALES COUNSELOR-C Jaquan Morrow Work Phone: [facility] Work Phone: Start: 04-02-2023 End: 04-02-2023 Emergency department patient visit Ashutosh Albright [facility] Start: 03-24-2023 End: 03-24-2023 ambulatory Jaquan Morrow Facility:[facility] Afsaneh suarez Start: 03-16-2023 End: 03-20-2023 Evaluation and management of inpatient Melisa Barker MD Work Phone: [facility] Comment on above: Abdominal pain (Prim reji Dx); Nausea and vomiting, unspecified vomiting type; History of gastric bypass; Median arcuate ligament syndrome (CMS/HCC) Start: 03-16-2023 End: 03-16-2023 Emergency department patient visit Earnest Jett [facility] Start: 03-15-2023 End: 03-15-2023 Emergency department patient visit Earnest Jett [facility] Start: 03-05-2023 End: 03-10-2023 Evaluation and management of inpatient Sherry Magaña MD Work Phone: [facility] Comment on above: Median arcuate ligam ent syndrome (CMS/HCC) (Primary Dx) Start: 03-02-2023 End: 03-03-2023 ambulatory NO ASSIGNED PCP GENERIC PROVIDER [facility] Start: 03-02-2023 End: 03-02-2023 ambulatory NO ASSIGNED PCP GENERIC PROVIDER [facility] Start: 03-02-2023 End: 03-02-2023 Encounter for other preprocedural examination NO ASSIGNED PCP GENERIC PROVIDER [facility] Start: 02-13-2023 End: 02-13-2023 Emergency department patient visit SALES COUNSELOR-C Jaquan Morrow Work Phone: [facility]-Emergency Room Work Phone: Start: 02-12-2023 End: 02-12-2023 Emergency department patient visit NO ASSIGNED PCP GENERIC PROVIDER [facility] Start: 02-10-2023 End: 02-10-2023 ambulatory JAQUAN L CRISTHIAN Facility:[facility] Start: 02-03-2023 End: 02-03-2023 ambulatory Jaquan L Cristhian Facility:[facility] Start: 01-15-2023 Telephone encounter Deacon shahid MD Work Phone: Endocrinology BMI Comment on above: Patient Question; Pa tient Update Start: 01-14-2023 End: 01-14-2023 ambulatory Vic Ramos MD Work Phone: Pain Management Comment on above: Waitlist Start: 01-13-2023 End: 01-13-2023 Emergency department patient visit NO ASSIGNED PCP GENERIC PROVIDER [facility] Start: 01-11-2023 Orders Only Vic Conner [...] with patient Vic Ramos MD Work Phone: [facility] Start: 01-06-2023 Telephone encounter Vic saldana MD Work Phone: Pain Management Comment on above: Appointment Start: 12-31-2022 End: 12-31-2022 Emergency department patient visit Mateusz Garcia [facility] Start: 12-29-2022 End: 12-29-2022 ambulatory Jaquan L Cristhian Facility[facility] [place] Start: 12-28-2022 Telephone encounter Deacon shahid MD Work Phone: General Surgery Comment on above: Patient Update; Suly marin Start: 12-21-2022 End: 12-21-2022 ambulatory [facility] Start: 12-14-2022 End: 12-14-2022 ambulatory Deacon Kat MD Work Phone: Endocrinology BMI Comment on above: Worsening Symptoms S evere Abdominal pain, unsp ecified abdominal location (Primary Dx) Start: 12-14-2022 End: 12-15-2022 Emergency department patient visit [facility] Start: 12-14-2022 End: 12-14-2022 Telemedicine consultation with patient Deacon Kat MD Work Phone: [facility] Start: 12-09-2022 ambulatory Jaquan L Cristhian Facility: [facility] [place] Start: 12-06-2022 End: 12-09-2022 Evaluation and management of inpatient SHANNA WOODS Facility:[facility] Start: 12-04-2022 End: 12-04-2022 Patient encounter procedure Agustin Zamorano MD Work Phone: General Surgery Comment on above: Generalized abdomina l pain (Primary Dx) Start: 12-04-2022 End: 12-04-2022 ambulatory AGUSTIN ZAMORANO Facility:[facility] Start: 12-03-2022 Telephone encounter Oliva Dobbs RN General Surgery Start: 12-01-2022 Telephone encounter Deacon shahid MD Work Phone: Endocrinology BMI Comment on above: Patient Update Start: 12-01-2022 End: 12-01-2022 ambulatory Lokesh Terry Facility:[facility] [place] Start: 11-27-2022 End: 12-03-2022 Evaluation and management of inpatient CAMDEN RODRIGUEZ [facility], [place]) Start: 11-26-2022 ambulatory DEACON Day y:[facility] Start: 11-26-2022 End: 11-26-2022 Subsequent hospital visit by physician Jing/ [facility] Work Phone: CARDIOVASCULAR TESTING Comment on above: Chronic nausea [R11. 0] Start: 11-26-2022 End: 11-26-2022 ambulatory JAQUAN L CRISTHIAN Facility:[facility] Start: 11-25-2022 [facility] Work Phone: Chronic Care Start: 11-25-2022 End: 11-25-2022 ambulatory Jaquan L Cristhian Facility:[facility] Start: 11-23-2022 Telephone encounter Deacon shahid MD Work Phone: Endocrinology BMI Comment on above: Patient Update Start: 11-22-2022 End: 11-23-2022 ambulatory STEVE ADIBI Facility[facility] Start: 11-17-2022 End: 11-17-2022 ambulatory Deacon Kat MD Work Phone: Endocrinology BMI Comment on above: On-Call Surgeon - Se nt to ER Start: 11-16-2022 End: 11-17-2022 Refill Deacon Kat MD Work Phone: Endocrinology BMI Start: 11-16-2022 End: 11-16-2022 Lab Drop off Jaquan L Cristhian [facility] Start: 11-14-2022 ambulatory Deacon sousa MD Work Phone: [facility] Start: 11-14-2022 Nutrition therapy Deacon turner MD Work Phone: Endocrinology BMI Comment on above: IV Nutrition Start: 11-13-2022 End: 11-13-2022 ambulatory PABLO LEBRON Facility:[facility] Start: 11-11-2022 End: 11-12-2022 ambulatory DEACON KAT Facility:[facility] Start: 11-10-2022 End: 11-10-2022 ambulatory JAQUAN L CRISTHIAN Facility:[facility] Start: 11-09-2022 Telephone encounter Deacon shahid MD Work Phone: Endocrinology BMI Comment on above: Surgery Rescheduled Start: 11-06-2022 ambulatory Agustin Sheets RT(R) [facility] Radiology Molecular Comment on above: Radiology NM Start: 11-06-2022 Patient encounter procedure Agustin Sheets RT(R) [facility] Start: 11-06-2022 Telephone encounter Deacon shahid MD Work Phone: Endocrinology BMI Comment on above: Patient Update Start: 11-05-2022 End: 11-08-2022 [facility] Start: 11-04-2022 End: 11-04-2022 Patient encounter procedure Deacon Kat MD Work Phone: Endocrinology BMI Comment on above: Nausea (Primary Dx); RUQ pain; History of cholecystectomy Dehydration (Primary Dx); RUQ pain Right knee pain, uns pecified chronicity (Primary Dx) Start: 11-04-2022 End: 11-04-2022 ambulatory Rheu Chair 5 Jeanne Work Phone: Infusion Start: 11-04-2022 ambulatory [facility] Facility: [facility] Start: 11-04-2022 End: 11-04-2022 Subsequent hospital visit by physician Trudy [facility] Work Phone: [facility] Radiology Ultrasound Comment on above: Nausea [R11.0] Start: 11-04-2022 End: 11-04-2022 ambulatory Deacon Kat Facility:[facility] Start: 11-03-2022 End: 11-03-2022 ambulatory Jaquan L Cristhian Facility:[facility] Afsaneh suarez Start: 11-02-2022 Refill Haroon ahumada APRN.CNP Work Phone: Neurology Start: 11-02-2022 End: 11-02-2022 Emergency department patient visit DIMITRI WALKER [facility] Start: 11-02-2022 End: 11-02-2022 Emergency department patient visit Dimitri Walker MD Work Phone: [facility] Emergency Department Start: 11-01-2022 ambulatory Deacon sousa MD Work Phone: Endocrinology BMI Comment on above: Worsening Symptoms Problem Start: 10-31-2022 Refill Breanna Stern DARRYL Work Phone: General Surgery Comment on above: Refill Request Start: 10-31-2022 End: 10-31-2022 Emergency department patient visit [facility] Start: 10-31-2022 End: 10-31-2022 Emergency department patient visit Jalyn Galvan Demetrice VALENZUELA Work Phone: [facility] ED Comment on above: Back strain, initial encounter (Primary Dx) Start: 10-29-2022 End: 11-30-2022 ambulatory Jaquan L Cristhian Facility:[id number] Start: 10-27-2022 End: 10-27-2022 ambulatory JAQUAN L CRISTHIAN [facility] Start: 10-26-2022 End: 10-26-2022 ambulatory Jaquan L Cristhian Facility:[facility] [place] Start: 10-25-2022 End: 10-28-2022 ambulatory RAYNA R JOSE CRUZ [facility] Start: 10-24-2022 ambulatory Deacon sousa MD Work Phone: Endocrinology BMI Comment on above: Symptoms Start: 10-23-2022 End: 10-23-2022 Emergency department patient visit [facility] Start: 10-21-2022 End: 10-21-2022 ambulatory Jaquan L Cristhian Facility:[facility] [place] [facility] Start: 10-21-2022 End: 10-21-2022 Emergency department patient visit JAQUAN L CRISTHIAN Facility:[facility] Start: 10-20-2022 Telephone encounter Deacon shahid MD Work Phone: General Surgery Comment on above: Patient Question; Na usea & Vomiting Start: 10-20-2022 End: 10-20-2022 Emergency department patient visit Earnest Jett [facility] Start: 10-19-2022 ambulatory Breanna Stern LABEL FOLDER Work Phone: General Surgery Comment on above: Worsening Symptoms Start: 10-19-2022 End: 10-19-2022 Emergency department patient visit Earnest Jett [facility] Start: 10-18-2022 Emergency department patient visit [facility] Facility:[facility] Start: 10-17-2022 End: 10-17-2022 Emergency department patient visit [facility] Start: 10-15-2022 Refill Kasie Avalos MD Work Phone: Gastroenterology Comment on above: Refill Request Start: 10-07-2022 End: 10-07-2022 ambulatory [facility] Facility:[facility] Start: 10-05-2022 End: 10-05-2022 Distance [facility] Pablo [employer] Work Phone: Neurology Comment on above: ARSALAN (generalized anx iety disorder) (Primary Dx); Panic disorder without agoraphobia; Moderate recurrent major depression (HCC) Start: 09-28-2022 End: 09-28-2022 ambulatory Xiomara Martinez DADA Work Phone: Endocrinology BMI Comment on above: Postoperative malabs orption (Primary Dx); S/P gastric bypass; Overweight (BMI 25.0-29.9); Dietary counseling and surveillance Start: 09-28-2022 End: 09-28-2022 Telemedicine consultation with patient Xiomara Martinez RD Work Phone: [facility] Start: 09-22-2022 End: 09-22-2022 ambulatory JAQUAN L CRISTHIAN Facility:[facility] Start: 09-21-2022 End: 09-21-2022 [facility] Pablo [employer] Work Phone: Neurology Comment on above: ARSALAN (generalized anx iety disorder) (Primary Dx); Panic disorder without agoraphobia; Moderate recurrent major depression (HCC) Start: 09-18-2022 End: 09-18-2022 ambulatory BREANNA STERN Facility:[facility] Start: 09-18-2022 End: 09-18-2022 Patient encounter procedure Breanna Stern LABEL FOLDER Work Phone: General Surgery Comment on above: Encounter for surgic al aftercare following surgery of digestive system (Primary Dx); Impaired intestinal absorption; Esophageal dysphagia; Gastroesophageal reflux disease, unspecified whether esophagitis present; S/P bariatric surgery Start: 08-06-2022 ambulatory Kasie Avalos MD Work Phone: Gastroenterology Comment on above: Medication Coverage Start: 07-29-2022 End: 07-29-2022 Patient encounter procedure Rajni Rouse [facility] Start: 07-28-2022 End: 07-28-2022 Patient encounter [...] End: 07-20-2022 Lab Drop off Jaquan Morrow [facility] Start: 06-18-2022 End: 06-18-2022 ambulatory Aliyah Washburn GABRIELLA Work Phone: [facility] [place] Comment on above: Encounter to discuss test results (Primary Dx); NO SHOW Start: 06-18-2022 End: 06-18-2022 Telemedicine consultation with patient Aliyah Washburn GABRIELLA Work Phone: [facility] Start: 06-12-2022 End: 06-12-2022 Patient encounter procedure Aliyah Washburn GABRIELLA Work Phone: [facility] Comment on above: Polyarthralgia (Prim reji Dx); Malaise and fatigue; Subjective fever; S/P laparoscopic sleeve gastrectomy; History of syncope; History of adrenal insufficiency; Hypothyroidism, unspecified type Start: 06-11-2022 End: 07-24-2022 Pre-admission assessment Rui Joyner [facility] Start: 06-10-2022 End: 06-10-2022 Emergency department patient visit Ashutosh Valles Jose Ramon [facility] Start: 06-09-2022 End: 06-09-[address] DOCTOR CARRERA Facility:[facility] Start: 05-22-2022 End: 05-23-[address] WALLY FOELY . Facility:[facility] Start: 03-30-2022 ambulatory Breanna Stern APRN.LABEL FOLDER Work Phone: [facility] Start: 03-30-2022 Patient encounter procedure Breanna Stern APRN.LABEL FOLDER Work Phone: General Surgery Comment on above: Cancel Appointment C annot Reach Anyone Start: 03-06-2022 End: 03-06-2022 Subsequent hospital visit by physician Deacon Kat MD Work Phone: [facility] Endoscopy - ENDO Comment on above: Esophageal dysphagia [R13.19] Start: 03-05-2022 Telephone encounter Li márquez RN Work Phone: Endocrinology BMI Comment on above: EGD Instructions Start: 03-05-2022 End: 03-05-2022 ambulatory Breanna Stern SLIM.LABEL FOLDER Work Phone: General Surgery Comment on above: Esophageal dysphagia (Primary Dx); S/P gastric bypass; Postoperative malabsorption Start: 03-05-2022 End: 03-05-2022 Telemedicine consultation with patient Breanna Stern SLIM.LABEL FOLDER Work Phone: [facility] Start: 03-02-2022 End: 03-03-[address] WALLY FOLEY . Facility: Start: 02-17-2022 End: 02-18-[address] WALLY FOLEY . Facility: Start: 02-13-2022 End: 02-13-2022 Patient encounter procedure Kuldip Yousif MD Work Phone: [facility] Comment on above: Acetabular labrum te ar, right, subsequent encounter (Primary Dx) Start: 02-05-2022 Orders Only Deacon sousa MD Work Phone: Endocrinology BMI Comment on above: Postoperative pain Start: 02-04-2022 ambulatory Deacon sousa MD Work Phone: [facility] Start: 02-04-2022 Follow-up encounter Deacon shahid MD Work Phone: Endocrinology BMI Comment on above: Surgery Follow-Up Start: 02-04-2022 End: 02-04-2022 Admission to same day surgery center Nahed Tamez RD Work Phone: Nutrition Therapy Comment on above: S/P gastric surgery (Primary Dx); Dietary counseling Start: 02-04-2022 End: 02-04-2022 Telemedicine consultation with patient Nahed Tamez RD Work Phone: [facility] Start: 02-03-2022 End: 02-03-2022 Patient encounter procedure Breanna Jarred SMALLS.LABEL FOLDER Work Phone: General Surgery Comment on above: S/P bariatric surger y (Primary Dx); Postoperative pain; Primary osteoarthritis involving multiple joints Start: 02-02-2022 Telephone encounter Deacon shahid MD Work Phone: General Surgery Comment on above: Medication Question Start: 01-31-2022 ambulatory Deacon sousa MD Work Phone: Endocrinology BMI Comment on above: Home prescription qu estion Start: 01-28-2022 End: 01-28-2022 Admission to establishment Pacc 2 Work Phone: [facility] Start: 01-28-2022 End: 01-28-2022 ambulatory Pac 2 Work Phone: Pre Anesthesia Comment on above: Pre-op evaluation (P rimary Dx); Benign essential HTN; RICHAR on CPAP; Mild intermittent asthma without complication; Anemia, unspecified type; Class 1 obesity without serious comorbidity with body mass index (BMI) of 33.0 to 33.9 in adult, unspecified obesity type Start: 01-28-2022 End: 01-28-2022 Preprocedural examination done Pacc 2 Work Phone: Pre Anesthesia Start: 01-20-2022 Telephone encounter Li márquez RN Work Phone: Endocrinology BMI Comment on above: Surgery Date Start: 01-06-2022 Telephone encounter Li márquez RN Work Phone: Endocrinology BMI Comment on above: Schedule Surgery (La p. GJ revision) Start: 01-02-2022 End: 01-02-2022 [facility] Sabina Joy APRN.LABEL FOLDER Work Phone: General Surgery Comment on above: [...] Kat Start: 11-18-2021 Patient Update Breanna Stern APRN.LABEL FOLDER Work Phone: Endocrinology BMI Comment on above: Orders (pH Impedence ) Start: 11-17-2021 End: 11-17-2021 Telemedicine consultation with patient Deacon Kat MD Work Phone: [facility] Start: 11-17-2021 End: 11-17-2021 ambulatory Deacon Kat MD Work Phone: Endocrinology BMI Comment on above: Gastroesophageal ref lux disease without esophagitis (Primary Dx) Refill Request; Refi ll Request Start: 10-27-2021 End: 10-28-[address] WALLY FOLEY . Facility: Start: 10-21-2021 Telephone encounter Kuldip mckeon MD Work Phone: [facility] Comment on above: Appointment Start: 10-09-2021 End: 10-09-2021 [facility] Sabina Joy APRN.LABEL FOLDER Work Phone: General Surgery Comment on above: Gastroesophageal ref lux disease, unspecified whether esophagitis present (Primary Dx); Bariatric surgery status; Weight disorder; Class 1 obesity with serious comorbidity and body mass index (BMI) of 31.0 to 31.9 in adult, unspecified obesity type; S/P laparoscopic sleeve gastrectomy; Dietary counseling and surveillance Start: 10-08-2021 ambulatory Kuldip Yousif MD Work Phone[facility] Start: 10-08-2021 Patient encounter procedure Kuldip Yousif MD Work Phone: [facility] Comment on above: Appointment Time Tod ay Start: 10-04-2021 End: 10-05-[address] WALLY FOLEY . Facility: Start: 08-30-2021 End: 08-30-2021 Emergency department patient visit Pablo Atwood Work Phone: [facility] ED Comment on above: Dental infection (Pr imary Dx) Start: 08-29-2021 End: 08-29-2021 ambulatory Justine INMAN-C Work Phone: [facility] Comment on above: Tear of right acetab ular labrum, subsequent encounter (Primary Dx) Start: 08-29-2021 End: 08-29-2021 Telemedicine consultation with patient Justine INMAN-C Work Phone: [facility] [address] Start: 08-28-2021 Refill Justine INMAN-C Work Phone: [facility] Comment on above: Refill Request Start: 08-28-2021 End: 08-28-[address] Work Phone: General Surgery Comment on above: S/P laparoscopic sle dee dee gastrectomy (Primary Dx); Obesity, Class I, BMI 30-34.9; Dietary counseling and surveillance Start: 08-28-2021 End: 08-28-2021 Telemedicine consultation with patient Xiomara Martinez RD Work Phone: [facility] Start: 08-25-2021 Encounter for genera l adult medical examination without abnormal findings SHANNAMILENA JUNE [facility] Start: 08-24-2021 ambulatory Deacon sousa MD Work Phone: Endocrinology BMI Comment on above: Possible Revision Di scussion Start: 08-22-2021 End: 08-22-2021 Refill Kasie Avalos MD Work Phone: Gastroenterology Comment on above: Refill Request Start: 08-22-2021 Telephone encounter Shanna Tedalex hooks [facility] Start: 08-21-2021 End: 08-22-2021 Encounter for general adult medical examination without abnormal findings DR WALLY FOLEY . Facility:[facility] Start: 08-21-2021 End: 08-22-[address] WALLY FOLEY . Facility:[facility] Start: 08-19-2021 End: 08-20-[address] WALLY FOLEY . Facility:[facility] Start: 08-17-2021 End: 08-17-2021 ambulatory Shanna Slade Other [employer] Other Start: 08-17-2021 Office outpatient vi sit 15 minutes Shanna June [facility] Start: 08-14-2021 Refill Justine ardon PA-C Work Phone: [facility] Comment on above: Refill Request Start: 08-01-2021 End: 08-01-2021 ambulatory Justine Alex Shabazz PA-C Work Phone: [facility] Comment on above: Tear of right acetab ular labrum, subsequent encounter (Primary Dx) Start: 08-01-2021 End: 08-01-2021 Telemedicine consultation with patient Justine Johnson Mele PA-C Work Phone: [facility] [address] Start: 07-30-2021 End: 07-30-[address] MARCOS MORENO . Facility:[facility] Start: 07-28-2021 ambulatory Justine Alex Nicki ac PA-C Work Phone: [facility] [address] Start: 07-28-2021 Patient encounter procedure Justine Shabazz PA-C Work Phone: [facility] Comment on above: Virtual Appointment Start: 07-27-2021 End: 07-27-2021 Emergency department patient visit Angela Do MD Work Phone: [facility] Comment on above: Generalized abdomina l pain (Primary Dx) Start: 07-14-2021 ambulatory Justine Johnson Nicki ac PA-C Work Phone: [facility] Comment on above: Medication Start: 07-11-2021 End: 08-26-[address] DOCTOR CARRERA Facility:[facility] Start: 07-04-2021 End: 07-04-2021 ambulatory Justine Johnsonelroy PA-C Work Phone: [facility] Comment on above: Tear of right acetab ular labrum, subsequent encounter (Primary Dx) Start: 07-04-2021 End: 07-04-2021 Telemedicine consultation with patient Justine Shabazz PA-C Work Phone: [facility] [address] Start: 06-23-2021 Admission to [facility] Jace Duarte AT Work Phone: [facility] Comment on above: Schedule Surgery Start: 06-23-2021 ambulatory Jace solomon AT Work Phone: [facility] [address] Start: 06-18-2021 End: 06-18-2021 Patient encounter procedure Kuldip Yousif MD Work Phone: [facility] Comment on above: Acetabular labrum te ar, right, initial encounter (Primary Dx) Start: 06-02-2021 ambulatory LUCIE MORA Faci lity:[facility] Start: 06-02-2021 End: 06-02-2021 Office outpatient visit 15 minutes Lucie Mora MD Work Phone: [facility] Comment on above: 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) Start: 04-02-2021 End: 04-02-2021 ambulatory Shanna June Other [employer] Other Start: 04-02-2021 Telephone encounter Shanna hooks [facility] Start: 03-31-2021 End: 03-31-2021 ambulatory Shanna June Other [employer] Other Start: 03-31-2021 Office outpatient vi sit 15 minutes Shanna Slade [facility] Start: 03-10-2021 End: 03-10-2021 ambulatory Shanna June Other [employer] Other Start: 03-10-2021 Telephone encounter Shanna hooks [facility] [employer] Start: 01-28-2021 End: 01-28-2021 ambulatory Shanna June Other [employer] Other Start: 01-28-2021 Office outpatient vi sit 15 minutes Shanna June [facility] Start: 12-17-2020 End: 12-17-2020 ambulatory Shanna June Other [employer] Other Start: 12-17-2020 Encounter for genera l adult medical examination without abnormal findings Shanna June [facility] Start: 12-17-2020 Periodic preventive med est patient 18-39 yrs Shanna Granadosault [facility] Start: 12-14-2020 End: 12-14-2020 Emergency department patient visit Shanna June SUPPORT SERVICES REP - SALES COUNSELOR Work Phone: [facility] Comment on above: Contusion of right t humb without damage to nail, initial encounter (Primary Dx) Start: 12-09-2020 ambulatory LUCIE Foster lity:[facility] Start: 07-02-2020 End: 07-02-2020 Emergency department patient visit Vaughn Ceja MD Work Phone: [facility] Emergency Department Start: 01-30-2020 End: 01-30-2020 Emergency department patient visit Agustin Gustafson Work Phone: [facility] Emergency Department Start: 09-25-2019 End: 08-04-2023 Preprocedural examination done Kuldip Yousif MD Work Phone: [facility] Work Phone: Start: 09-10-2017 End: 09-11-2017 Patient encounter DEFAULT PHYSICIAN Facility:[facility] Procedures Date Procedure Procedure Detail Performing Clinician Start: 08-14-2023 Computed tomography of abdomen and pelvis with contrast SALES COUNSELOR-C Jaquan Cristhian Work Phone: Start: 07-31-2023 Computed tomography of abdomen and pelvis with contrast SALES COUNSELOR-C Jaquan Cristhian Work Phone: Start: 07-16-2023 Computed tomography of abdomen and pelvis with contrast SALES COUNSELOR-C Jaquan Cristhian Work Phone: Start: 07-15-2023 Follow-up visit Follow Up RYLEE THACKER Start: 07-06-2023 Urnls dip stick/tablet rgnt auto w/o microscopy Bulk Order Provider Start: 07-03-2023 LONG CATHETER REMOVAL SHERRY MAGAÑA Start: 07-03-2023 DISCHARGE PATIENT SHERRY MAGAÑA Start: 07-03-2023 Glucose [Mass/volume] in Serum or Plasma SHERRY MAGAÑA Start: 07-03-2023 Glucose quantitative blood xcpt reagent strip Kina Ann MD Work Phone: Start: 07-02-2023 Glucose [Mass/volume] in Serum or Plasma SHERRY MAGAÑA Start: 07-02-2023 Glucose quantitative blood xcpt reagent strip Kina Ann MD Work Phone: Start: 07-02-2023 Glucose [Mass/volume] in Serum or Plasma SHERRY MAGAÑA Start: 07-02-2023 DIET TUBE FEEDING WITH TRAY SHERRY MAGAÑA Start: 07-02-2023 Glucose quantitative blood xcpt reagent strip Kina Ann MD Work Phone: Start: 07-02-2023 Glucose [Mass/volume] in Serum or Plasma SHERRY MAGAÑA Start: 07-02-2023 Glucose quantitative blood xcpt reagent strip Kina Ann MD Work Phone: Start: 07-02-2023 DO NOT REMOVE URINARY CATHETER WITHOUT PROVIDER ORDER SHERRY MAGAÑA Start: 07-02-2023 Glucose [Mass/volume] in Serum or Plasma SHERRY GARDENA Start: 07-02-2023 CBC panel - Blood by Automated count SHERRY GÓMEZ Start: 07-02-2023 RENAL FUNCTION PANEL SHERRY GÓMEZ Start: 07-02-2023 Glucose quantitative blood xcpt reagent strip Dolores Cox MD Work Phone: Start: 07-02-2023 Renal function panel Dolores Cox MD Work Phone: Start: 07-02-2023 Glucose [Mass/volume] in Serum or Plasma SHERRY GÓMEZ Start: 07-01-2023 Glucose quantitative blood xcpt reagent strip Dolores Cox MD Work Phone: Start: 07-01-2023 Glucose [Mass/volume] in Serum or Plasma PHANIBAHMAN MAGAÑA Start: 07-01-2023 Glucose quantitative blood xcpt reagent strip Dolores Cox MD Work Phone: Start: 07-01-2023 Glucose [Mass/volume] in Serum or Plasma SHERRY GÓMEZ Start: 07-01-2023 Glucose quantitative blood xcpt reagent strip Dolorse Cox MD Work Phone: Start: 07-01-2023 XR CHEST 1 VIEW SHERRY MAGAÑA Start: 07-01-2023 Glucose [Mass/volume] in Serum or Plasma SHERRY GÓMEZ Start: 07-01-2023 Glucose [Mass/volume] in Serum or Plasma SHERRY GÓMEZ Start: 07-01-2023 Radiologic exam chest single view Guanako Cox MD Work Phone: Start: 07-01-2023 Glucose quantitative blood xcpt reagent strip Dolores Cox MD Work Phone: Start: 07-01-2023 Glucose quantitative blood xcpt reagent strip Dolores Cox MD Work Phone: Start: 07-01-2023 Glucose [Mass/volume] in Serum or Plasma [facility] Start: 07-01-2023 Glucose quantitative blood xcpt reagent strip Dolores Cox MD Work Phone: Start: 07-01-2023 CBC panel - Blood by Automated count [facility] Start: 07-01-2023 Magnesium [Mass/volume] in Serum or Plasma [facility] Start: 07-01-2023 RENAL FUNCTION PANEL [facility] GÓMEZ Start: 07-01-2023 Renal function panel Dolores Cox MD Work Phone: Start: 07-01-2023 BATH/SHOWER WITH CHLORHEXIDINE [facility]CONATE [facility] Start: 06-30-2023 Glucose [Mass/volume] in Serum or Plasma [facility] Start: 06-30-2023 Glucose quantitative blood xcpt reagent strip Dolores Cox MD Work Phone: Start: 06-30-2023 MAY PARTICIPATE IN ROOM SERVICE [facility] Jonh BRAY Start: 06-30-2023 IP CONSULT [facility]UAL [facility]ARE [facility] Start: 06-30-2023 IP CONSULT TO NUTRITION SERVICES [facility] Start: 06-30-2023 IP CONSULT TO SOCIAL WORK [facility] Start: 06-30-2023 IP CONSULT TO RESPIRATORY CARE [facility] HENNY CASTILLO Start: 06-30-2023 NOTIFY PROVIDER (DO NOT PROMPT FOR PARAMETERS) [facility] Start: 06-30-2023 NURSING COMMUNICATION [facility] Start: 06-30-2023 PULSE OXIMETRY, CONTINUOUS [facility] Start: 06-30-2023 ECG 12-[facility]AD [facility] Start: 06-30-2023 STAPHYLOCOCCUS AUREUS/MRSA COLONIZATION, CULTURE [facility] Start: 06-30-2023 Glucose [Mass/volume] in Serum or Plasma [facility] Start: 06-30-2023 CT ANGIO ABDOMEN PELVIS W AND/OR WO IV IV CONTRAST [facility] Start: 06-30-2023 VASC US MESENTERIC ARTERY DUPLEX COMPLETE [facility] Start: 06-30-2023 Glucose quantitative blood xcpt reagent strip Baldomero Woodard MD Work Phone: Start: 06-30-2023 Ct angio abd&plvis cntrst mtrl w/wo cntrst img Tiffanie Mendez SUPPORT SERVICES REP-LABEL FOLDER Work Phone: Start: 06-30-2023 Dup-scan artl tiara abdl/pel/scrot&/rpr orgn com Jamil Gavin MD Work Phone: Start: 06-30-2023 CBC panel - Blood by Automated count [facility] Start: 06-30-2023 Comprehensive metabolic 2000 panel - Serum or Plasma [facility] Start: 06-30-2023 Magnesium [Mass/volume] in Serum or Plasma [facility] Start: 06-30-2023 Phosphate [Mass/volume] in Serum or Plasma [facility] Start: 06-30-2023 Comprehensive metabolic panel Baldomero serrano MD Work Phone: Start: 06-30-2023 IP CONSULT TO VASCULAR SURGERY [facility] HENNY CASTILLO Start: 06-30-2023 CENTRAL VENOUS LINE CAP CHANGE - ADULTS [facility] Start: 06-30-2023 CENTRAL VENOUS LINE DRESSING CHANGE - ADULT [facility] Start: 06-30-2023 CENTRAL VENOUS LINE TUBING CHANGE - ADULTS [facility] Start: 06-30-2023 IP CONSULT TO ACUTE CARE SURGERY [facility] Start: 06-30-[address] [facility] Start: 06-30-2023 NOTIFY PROVIDER (PROMPT FOR PARAMETERS) [facility] Start: 06-30-[address] [facility] Start: 06-30-2023 NURSING COMMUNICATION - DO NOT USE IN ORDER SETS [facility] Start: 06-30-2023 POCT GLUCOSE METER [facility] Start: 06-30-2023 EXTRA URINE [place] TU[place] [facility] Start: 06-30-2023 HCG, URINE, QUALITATIVE [facility] Start: 06-30-2023 URINALYSIS WITH REFLEX CULTURE AND MICROSCOPIC [facility] Start: 06-30-2023 ADMIT TO INPATIENT [facility] GARDENA Start: 06-30-2023 ED TO FLOOR BED REQUEST [facility] Start: 06-30-2023 EXTRA URINE [place] TUBE David Valadez DO Work Phone: Start: 06-30-2023 Urinalysis complete W Reflex Culture panel - Urine David Valadez DO Work Phone: Start: 06-30-2023 Urnls dip stick/tablet rgnt auto w/o microscopy David Valadez DO Work Phone: Start: 06-30-2023 CT ABDOMEN PELVIS WO [facility] Start: 06-29-2023 Ct abdomen & pelvis w/o contrast material David Valadez DO Work Phone: Start: 06-29-2023 Basic metabolic 2000 panel - Serum or Plasma [facility] Start: 06-29-2023 CBC panel - Blood by Automated count [facility] Start: 06-29-2023 Glucose [Mass/volume] in Serum or Plasma [facility] Start: 06-29-2023 CBC W Auto Differential panel - Blood [facility] Start: 06-29-2023 Comprehensive metabolic 2000 panel - Serum or Plasma [facility] Start: 06-29-2023 Comprehensive metabolic panel David rowland DO Work Phone: Start: 06-29-2023 Ecg routine ecg w/least 12 lds trcg only w/o i&r David Valadez DO Work Phone: Start: 06-29-2023 End: 06-29-2023 Comprehensive metabolic panel David rowland DO Work Phone: Start: 06-18-2023 Electrocardiogram JAQUAN CRISTHIAN Start: 05-30-2023 Computed tomography of abdomen and pelvis with contrast SALES COUNSELOR-C Jaquan Cristhian Work Phone: Start: 05-30-2023 Urine culture SALES COUNSELOR-C Jaquan Morrow Work Phone: Start: 05-25-2023 Esophagoscp rig transoral hypopharynx crv rene Rouse Start: 05-20-2023 Esophagoscp rig transoral hypopharynx crv rene Rouse Start: 05-12-2023 Esophagogastroduodenoscopy Mon[facility] ahumada Start: 04-06-2023 Computed tomography of abdomen and pelvis with contrast SALES COUNSELOR-C Jaquan Morrow Work Phone: Start: 03-20-2023 DISCHARGE PATIENT [facility] Start: 03-19-2023 DISCHARGE PATIENT [facility] Start: 03-19-2023 Esophagogastroduodenoscopy [facility] Start: 03-19-2023 SURGICAL PATHOLOGY EXAM [facility] Start: 03-19-2023 Egd transoral biopsy single/multiple Deepikatyler Roy SUPPORT SERVICES REP-LABEL FOLDER Work Phone: Start: 03-19-2023 CBC panel - Blood by Automated count [facility] Start: 03-19-2023 Comprehensive metabolic 2000 panel - Serum or Plasma [facility] Start: 03-19-2023 Comprehensive metabolic panel Tiffanie Galvan Anthony all SUPPORT SERVICES REP-LABEL FOLDER Work Phone: Start: 03-18-2023 CBC panel - Blood by Automated count [facility] Start: 03-18-2023 Comprehensive metabolic 2000 panel - Serum or Plasma [facility] Start: 03-18-2023 Comprehensive metabolic panel Tiffanie J Anthony all SUPPORT SERVICES REP-LABEL FOLDER Work Phone: Start: 03-17-2023 XR CHEST 1 VIEW [facility] Start: 03-17-2023 Radiologic exam chest single view Tiffanie Mendez SUPPORT SERVICES REP-LABEL FOLDER Work Phone: Start: 03-17-2023 FL UPPER GI W DOUBLE CONTRAST W SMALL BOWEL FOLLOW THROUGH [facility] Start: 03-17-2023 Radiologic exam upr gi trc double contrast study Tiffanie Mendez SUPPORT SERVICES REP-LABEL FOLDER Work Phone: Start: 03-17-2023 XR CHEST 1 [facility] Start: 03-17-2023 Radiologic exam chest single view Tiffanie Mendez SUPPORT SERVICES REP-LABEL FOLDER Work Phone: Start: 03-17-2023 CBC panel - Blood by Automated count [employer] Start: 03-17-2023 Comprehensive metabolic 2000 panel - Serum or Plasma [facility] Start: 03-17-2023 [facility] Start: 03-17-2023 Comprehensive metabolic panel Tiffanie Cruz all SUPPORT SERVICES REP-LABEL FOLDER Work Phone: Start: 03-16-2023 CT ABDOMEN PELVIS W IV CONTRAST [facility]ULLK Start: 03-16-2023 Ct abdomen & pelvis w/contrast material Tiffanie Mendez SUPPORT SERVICES REP-LABEL FOLDER Work Phone: Start: 03-16-2023 ED [facility]OR BED [facility] Start: 03-16-2023 PULSE OXIMETRY, CONTINUOUS [facility] Start: 03-16-2023 TELEMETRY [facility]ING [facility] Start: 03-16-2023 MEASURE HEIGHT [facility] Start: 03-16-2023 ORTHOSTATIC BLOOD PRESSURE [facility] Start: 03-16-2023 WEIGH PATIENT [employer] [employer] [facility] Start: 03-16-2023 [facility] Start: 03-16-2023 CBC W Auto Differential panel - Blood [facility] Start: 03-16-2023 Comprehensive metabolic 2000 panel - Serum or Plasma [facility] Start: 03-16-2023 SARS-COV-2 AND INFLUENZA A/B PCR [facility] Start: 03-16-2023 PULSE OXIMETRY, CONTINUOUS Tiffanie Mendez SUPPORT SERVICES REP-LABEL FOLDER Work Phone: Start: 03-16-2023 Comprehensive metabolic panel Melisa lipscomb MD Work Phone: Start: 03-16-2023 Influenza virus A and B and SARS-CoV-2 (COVID-19) identified in Respiratory specimen by HANK with probe detection Melisa Barker MD Work Phone: Start: 03-10-2023 DISCHARGE PATIENT [facility] Start: 03-10-2023 DISCHARGE INSTRUCTIONS SHERRY GARDENA Start: 03-10-2023 Glucose [Mass/volume] in Serum or Plasma [facility] Start: 03-10-2023 Glucose quantitative blood xcpt reagent strip Dolores Cox MD Work Phone: Start: 03-10-2023 Glucose [Mass/volume] in Serum or Plasma [facility] Start: 03-10-2023 Glucose quantitative blood xcpt reagent strip Dolores Cox MD Work Phone: Start: 03-10-2023 Basic metabolic 2000 panel - Serum or Plasma [facility] Start: 03-10-2023 CBC panel - Blood by Automated count [facility] Start: 03-10-2023 Glucose [Mass/volume] in Serum or Plasma [facility] Start: 03-10-2023 End: 03-10-2023 Basic metabolic panel calcium total Alicia Toro SUPPORT SERVICES REP-LABEL FOLDER Work Phone: Start: 03-10-2023 POCT GLUCOSE METER [facility] Start: 03-10-2023 Glucose [Mass/volume] in Serum or Plasma [facility] Start: 03-10-2023 Glucose quantitative blood xcpt reagent strip Dolores Cox MD Work Phone: Start: 03-09-2023 Glucose [Mass/volume] in Serum or Plasma [facility] Start: 03-09-2023 Glucose quantitative blood xcpt reagent strip Dolores Cox MD Work Phone: Start: 03-09-2023 Glucose [Mass/volume] in Serum or Plasma [facility] Start: 03-09-2023 Glucose quantitative blood xcpt reagent strip Dolores Cox MD Work Phone: Start: 03-09-2023 C. DIFFICILE, PCR [facility] Start: 03-09-2023 STOOL PATHOGEN PANEL, PCR [facility] Start: 03-09-2023 Glucose [Mass/volume] in Serum or Plasma [facility] Start: 03-09-2023 Iadna-dna/rna gi pthgn multiplex probe tq 6-11 Alicia Toro [facility] Work Phone: Start: 03-09-2023 Inf agent det nucleic acid clostridium amp probe Alicia Toro [facility] Work Phone: Start: 03-09-2023 IP CONS[facility] Start: 03-09-2023 Glucose quantitative blood xcpt reagent strip Dolores Cox MD Work Phone: Start: 03-09-2023 Glucose [Mass/volume] in Serum or Plasma [facility] Start: 03-09-2023 ECG 12-[facility]AD [facility] Start: 03-09-2023 Basic metabolic 2000 panel - Serum or Plasma [facility] Start: 03-09-2023 CBC panel - Blood by Automated count [facility] Start: 03-09-2023 Glucose quantitative blood xcpt reagent strip Dolores Cox MD Work Phone: Start: 03-09-2023 Glucose [Mass/volume] in Serum or Plasma [facility] Start: 03-09-2023 Basic metabolic panel calcium total Alicia Toro [facility] Work Phone: Start: 03-09-2023 Glucose [Mass/volume] in Serum or [facility] Start: 03-09-2023 Glucose quantitative blood xcpt reagent strip Dolores Cox MD Work Phone: Start: 03-09-2023 Glucose quantitative blood xcpt reagent strip Dolores Cox MD Work Phone: Start: 03-09-2023 POCT GLUCOSE METER [facility] Start: 03-09-2023 Glucose [Mass/volume] in Serum or Plasma [facility] Start: 03-08-2023 Glucose quantitative blood xcpt reagent strip Dolores Cox MD Work Phone: Start: 03-08-2023 Glucose [Mass/volume] in Serum or Plasma [facility] Start: 03-08-2023 Glucose quantitative blood xcpt reagent strip Dolores Cox MD Work Phone: Start: 03-08-2023 Glucose [Mass/volume] in Serum or Plasma [facility] Start: 03-08-2023 Glucose quantitative blood xcpt reagent strip Dolores Cox MD Work Phone: Start: 03-08-2023 ECG 12-LEAD PH[facility] GÓMEZ Start: 03-08-2023 Glucose [Mass/volume] in Serum or Plasma [facility] Start: 03-08-2023 Glucose quantitative blood xcpt reagent strip Dolores Cox MD Work Phone: Start: 03-08-2023 Basic metabolic 2000 panel - Serum or Plasma [facility] Start: 03-08-2023 CBC panel - Blood by Automated [facility] Start: 03-08-2023 Glucose [Mass/volume] in Serum or Plasma [facility] Start: 03-08-2023 End: 03-08-2023 Basic metabolic panel calcium total Chrissy Harris PA-C Work Phone: Start: 03-08-[address] CATHETER [facility] Start: 03-08-2023 POCT GLUCOSE METER [facility] Start: 03-08-2023 Glucose [Mass/volume] in Serum or [facility] Start: 03-08-2023 Glucose quantitative blood xcpt reagent strip Karma Shapre MD Work Phone: Start: 03-07-2023 Glucose [Mass/volume] in Serum or [facility] Start: 03-07-2023 Glucose quantitative blood xcpt reagent strip Karma Sharpe MD Work Phone: Start: 03-07-2023 Glucose [Mass/volume] in Serum or Plasma [facility] Start: 03-07-2023 Glucose quantitative blood xcpt reagent strip Karma Sharpe MD Work Phone: Start: 03-07-2023 Glucose [Mass/volume] in Serum or Plasma [facility] Start: 03-07-2023 Glucose quantitative blood xcpt reagent strip Karma Sharpe MD Work Phone: Start: 03-07-2023 Glucose [Mass/volume] in Serum or Plasma [facility] Start: 03-07-2023 Glucose quantitative blood xcpt reagent strip Karma Sharpe MD Work Phone: Start: 03-07-2023 Basic metabolic 2000 panel - Serum or Plasma [facility] Start: 03-07-2023 CBC panel - Blood by Automated count [facility] Start: 03-07-2023 Glucose [Mass/volume] in Serum or Plasma [facility] Start: 03-07-2023 Basic metabolic panel calcium total Chrissy Harris PA-C Work Phone: Start: 03-07-2023 RESPIRATORY CARE EVALUATION ONLY [facility] Start: 03-07-2023 Glucose quantitative blood xcpt reagent strip Karma Sharpe MD Work Phone: Start: 03-07-2023 POCT GLUCOSE METER [facility] Start: 03-07-2023 RESPIRATORY CARE EVALUATION ONLY Karma siegel MD Work Phone: Start: 03-07-2023 Glucose [Mass/volume] in Serum or Plasma [facility] Start: 03-06-2023 Glucose quantitative blood xcpt reagent strip Karma Sharpe MD Work Phone: Start: 03-06-2023 Glucose [Mass/volume] in Serum or Plasma [facility] Start: 03-06-[address] [facility] Start: 03-06-2023 Glucose quantitative blood xcpt reagent strip Karma Sharpe MD Work Phone: Start: 03-06-2023 TRANSFER PATIENT TO NEW UNIT [facility] Start: 03-06-2023 Glucose [Mass/volume] in Serum or Plasma [facility] Start: 03-06-2023 Glucose quantitative blood xcpt reagent strip Karma Sharpe MD Work Phone: Start: 03-06-2023 Glucose [Mass/volume] in Serum or Plasma [facility] Start: 03-06-2023 Glucose quantitative blood xcpt reagent strip Corie Head MD Work Phone: Start: 03-06-2023 Glucose [Mass/volume] in Serum or Plasma [facility] Start: 03-06-2023 XR CHEST 1 VIEW [facility] Start: 03-06-2023 Glucose quantitative blood xcpt reagent strip Corie Head MD Work Phone: Start: 03-06-2023 Radiologic exam chest single view Shona Foster SUPPORT SERVICES REP-LABEL FOLDER Work Phone: Start: 03-06-2023 Basic metabolic 2000 panel - Serum or Plasma [facility] Start: 03-06-2023 CBC panel - Blood by Automated count [facility] Start: 03-06-2023 Magnesium [Mass/volume] in Serum or Plasma [facility] Start: 03-06-2023 Phosphate [Mass/volume] in Serum or Plasma [facility] Start: 03-06-2023 Glucose [Mass/volume] in Serum or Plasma [facility] Start: 03-06-2023 Basic metabolic panel calcium total Chrissy Harris PA-C Work Phone: Start: 03-06-2023 Glucose quantitative blood xcpt reagent strip Corie Head MD Work Phone: Start: 03-06-2023 POCT GLUCOSE METER [facility] Start: 03-06-2023 PT EVAL AND TREAT [facility] Start: 03-06-2023 Glucose [Mass/volume] in Serum or Plasma [facility] Start: 03-05-2023 Glucose quantitative blood xcpt reagent strip Corie Head MD Work Phone: Start: 03-05-2023 Glucose [Mass/volume] in Serum or Plasma [facility] Start: 03-05-2023 Glucose quantitative blood xcpt reagent strip Corie Head MD Work Phone: Start: 03-05-2023 Glucose [Mass/volume] in Serum or Plasma [facility] Start: 03-05-2023 Basic metabolic 2000 panel - Serum or Plasma [facility] Start: 03-05-2023 CBC panel - Blood by Automated count [facility] Start: 03-05-2023 Magnesium [Mass/volume] in Serum or Plasma [facility] Start: 03-05-2023 Phosphate [Mass/volume] in Serum or Plasma [facility]Y [facility]AÑA Start: 03-05-2023 XR CHEST 1 VIEW SHERRY MAGAÑA Start: 03-05-2023 POCT GLUCOSE METER [facility]ERRY MAGAÑA Start: 03-05-2023 MEASURE HEIGHT SHERRY MAGAÑA Start: 03-05-2023 WEIGH PATIENT SHERRY MAGAÑA Start: 03-05-2023 FULL CODE [facility]ERRY MAGAÑA Start: 03-05-2023 Glucose quantitative blood xcpt reagent strip Corie Head MD Work Phone: Start: 03-05-2023 ADMIT TO INPATIENT [facility] MAGAÑA Start: 03-05-2023 TRANSFER PATIENT TO NEW UNIT [facility] Start: 03-05-2023 Basic metabolic panel calcium total Desmond Tirado PA-C Work Phone: Start: 03-05-2023 Radiologic exam chest single view Desmond Tirado PA-C Work Phone: Start: 03-05-2023 PULSE OXIMETRY, CONTINUOUS [facility]Y [facility]AÑA Start: 03-05-2023 SURGICAL PATHOLOGY EXAM [facility] Start: 03-05-2023 PULSE OXIMETRY, CONTINUOUS Serena George DO Work Phone: Start: 03-05-2023 Level iii surg pathology gross&microscopic exam Sherry Magaña MD Work Phone: Start: 03-05-2023 End: 03-05-2023 Unlisted px abdomen musculoskeletal system Sherry Magaña MD Work Phone: Start: 03-05-2023 VERAB/VERIFY ABORH [facility] Start: 03-05-2023 XR CHEST 1 VIEW [facility] Start: 03-05-2023 VERAB/VERIFY SHAYY Magaña MD Work Phone: Start: 03-05-2023 Radiologic exam chest single view Edmund George DO Work Phone: Start: 03-02-2023 Basic metabolic 2000 panel - Serum or Plasma NO GENERIC PROVIDER Start: 03-02-2023 TYPE AND SCREEN NO GENERIC PROVIDER Start: 03-02-2023 STAPHYLOCOCCUS AUREUS/MRSA COLONIZATION, CULTURE [facility] Start: 02-13-2023 Computed tomography of abdomen and pelvis with contrast SALES COUNSELOR-C Jaquan Morrow Work Phone: Start: 02-12-2023 CBC W [...] GENERIC PROVIDER Start: 01-14-2023 ECG 12-LEAD [facility] Start: 01-14-2023 VASC US MESENTERIC ARTERY DUPLEX COMPLETE [facility] Start: 01-14-2023 [facility] Start: 01-13-2023 HCG, URINE, [facility]ITATIVE [facility] Start: 01-13-2023 URINALYSIS WITH REFLEX MICROSCOPIC [facility] Start: 01-13-2023 CBC W Auto Differential panel - Blood [facility] Start: 01-13-2023 Comprehensive metabolic 2000 panel - Serum or Plasma [facility] Start: 11-26-2022 Dup-scan artl tiara abdl/pel/scrot&/rpr orgn com Deacon Kat MD Work Phone: Start: 11-11-2022 Antibody screen JAQUAN MORROW Comment on above: Order Comment: Specimen Type: BLOOD SPEC IMENOrdering Facility: [facility] Address: [address] [place] [address] Performed By: #### T SCR ####OSVALDO BLOOD BANKIA [id number] [place] [address] [place] Start: 11-11-2022 Ercp [...] History of Tan-en-Y gastric bypass Breanna Stern SUPPORT SERVICES REP.LABEL FOLDER Work Phone: Start: 03-06-2022 Esophagoscp rig transoral hypopharynx crv esoph Breanna Stern SUPPORT SERVICES REP.LABEL FOLDER Work Phone: Start: 01-29-2022 Revision - value [...] MD Work Phone: Start: 02-15-2021 Gastric sleeve Astrit Hasamm Comment on above: Date is not exact Start: 01-20-2021 Esophagogastroduodenoscopy Astrit Miguel i Start: 12-14-2020 Radex fingr minimum 2 views Vicky Olmedo MD Work Phone: Start: 11-04-2020 Hysterectomy Astrit Hajulietteari Start: 07-02-2020 Us pelvic nonobstetric real-time image [...] Start: 01-30-2020 Albumin serum plasma/whole blood Agustin Gustafson Work Phone: Start: 01-30-2020 Assay of lipase Agustin Gustafson Work Phone: Start: 01-30-2020 Complete blood count with white cell differential, automated Agustin Gustafson Work Phone: Start: 01-30-2020 Creatinine blood Agustin Gustafson Work Phone: Start: 01-30-2020 Choriogonadotropin ( test) [Presence] in Urine Agustin Gustafson Work Phone: Start: 01-30-2020 Urinalysis, reagent strip without microscopy Agustin Gustafson Work Phone: Appendectomy Rajni Lue Cholecystectomy Rajni Lue Colonoscopy Rajni Lue H/O: surgery S/P gastric surgery Nahed Tamez [...] of 2) Zoster Vaccines (1 of 2) [facility] Start: 09-21-2026 DTaP/Tdap/Td vaccine (2 - Td or Tdap) DTaP/Tdap/Td vaccine (2 - Td or Tdap) [facility] Start: 09-21-2026 DTaP/Tdap/Td Vaccines (2 - Td or Tdap) DTaP/Tdap/Td Vaccines (2 - Td or Tdap) [facility] Start: 09-21-2026 Tetanus vaccination TETANUS [facility] Start: 09-21-2026 Urine microalbumin profile [facility] Start: 08-08-2024 BP Controlled (<130/80) BP Controlled (<130/80) [facility] Start: 07-02-2024 Diabetes mellitus screening Diabetes Screening [facility] Start: 04-27-2024 BP Controlled (<130/80) BP Controlled (<130/80) [facility] Start: 03-10-2024 Diabetes mellitus screening Diabetes Screening [facility] Start: 12-05-2023 BP Controlled (<130/80) BP Controlled (<130/80) [facility] Start: 11-27-2023 BP Controlled (<130/80) BP Controlled (<130/80) [facility] Start: 10-27-2023 Thyroid stimulating hormone measurement TSH Level [facility] Start: 10-13-2023 End: 10-13-2023 Patient encounter procedure 10/13/2023 1:00 PM EDT Office Visit Gastroenterology [address] [phone] Georgina Barkley MD [facility] [address] [address] rt page [phone] Gastroenterology Comment on above: rt page [phone] Start: 10-13-2023 End: 10-13-2023 ambulatory 10/13/2023 12:00 PM EDT Education Gastroenterology [address] [address] Yanna Ortega [address] [place], [place] [id number] cgrt page [phone] Gastroenterology Comment on above: cgrt page [phone] Start: 09-08-2023 End: 09-08-2023 Patient encounter procedure 09/08/2023 10:40 AM EDT Office Visit Gastroenterology [address] [address] Kasie Avalos MD [address] [place] [address] 3 month f/u Gastroenterology Comment on above: 3 month f/u Start: 09-03-2023 End: 09-03-2023 Patient encounter procedure 09/03/2023 12:45 PM EDT Office Visit Pulmonary Medicine [address] [facility] [place] [address] Alan Jurado MD [address] [facility] [place] [place] [address] Follow-up of left lower lobe pneumonia Pulmonary Medicine Comment on above: Follow-up of left lower lobe pneumonia Start: 08-30-2023 End: 08-30-2023 Nursing evaluation of patient and report 08/30/2023 8:00 AM EDT Nurse Visit Gastroenterology [address] [address] Lab, Nurse Gi I 9500 [place] [address] Gastroesophageal reflux disease, unspecified whether esophagitis present [K21.9] Gastroenterology Comment on above: Gastroesophageal reflux disease, unspeci fied whether esophagitis present [K21.9] Start: 08-26-2023 End: 08-26-2023 Nursing evaluation of patient and report 08/26/2023 3:00 PM EDT Nurse Visit Gastroenterology [address] [address] 2, Nurse Gi Lab [address] [address] Gastroesophageal reflux disease, unspecified whether esophagitis present [K21.9] Gastroenterology Comment on above: Gastroesophageal reflux disease, unspeci fied whether esophagitis present [K21.9] Start: 08-26-2023 End: 08-26-2023 Patient encounter procedure 08/26/2023 3:00 PM EDT Appointment Gastroenterology [address] [place] [phone] [place] [address] [place] [address] Gastroesophageal reflux disease, unspecified whether esophagitis present [K21.9] Gastroenterology Comment on above: Gastroesophageal reflux disease, unspeci fied whether esophagitis present [K21.9] Start: 08-09-2023 End: 08-09-2023 Patient encounter procedure 08/09/2023 2:00 PM EDT Office Visit Pain Management [address] [place], [place] [phone] Vic Ramos MD [address] [place] [address] follow up Pain Management Comment on above: follow up Start: 08-09-2023 End: 08-09-2023 Follow-up encounter 08/09/2023 9:00 AM EDT [facility] [address] [place] [address] Pablo Lebron, PSCECILIA [address] [place], [place] [phone] follow up Neurology Comment on above: follow up Start: 08-04-2023 End: 08-04-2023 Patient encounter procedure 08/04/2023 9:00 AM EDT Office Visit Pain Management [address] [place] [address] Boogie Murguia MD [address] [address] medication refill (ketamine) Pain Management Comment on above: medication refill (ketamine) Start: 07-28-2023 End: 07-28-2023 Patient encounter procedure 07/28/2023 10:00 AM EDT Office Visit Gastroenterology [address] [address] Kasie Avalos MD [address] [place] [address] 3 month f/u Gastroenterology Comment on above: 3 month f/u Start: 07-22-2023 End: 07-22-2023 Patient encounter procedure 07/22/2023 9:30 AM EDT Office Visit Colorectal Surgery [address] [address] La Montes De Oca, SLIM.LABEL FOLDER [address] [place] [address] Constipation, unspecified constipation type [K59.00] Colorectal Surgery Comment on above: Constipation, unspecified constipation t ype [K59.00] Start: 07-22-2023 End: 07-22-2023 Admission to same day surgery center 07/22/2023 9:00 AM EDT Procedure Colorectal Surgery [address] [address] La Montes De Oca, SLIM.LABEL FOLDER [address] [place] [address] Constipation, unspecified constipation type [K59.00] Colorectal Surgery Comment on above: Constipation, unspecified constipation t ype [K59.00] Start: 07-22-2023 End: 07-22-2023 Nursing evaluation of patient and report 07/22/2023 8:00 AM EDT Nurse Visit Gastroenterology [address] [address] Lab, Nurse Gi I [address] [facility] [place] [address] Gastroesophageal reflux disease, unspecified whether esophagitis present [K21.9] Gastroenterology Comment on above: Gastroesophageal reflux disease, unspeci fied whether esophagitis present [K21.9] Start: 07-20-2023 End: 07-20-2023 Professional / ancillary services management 07/20/2023 2:00 PM EDT Ancillary Procedure [facility] [address] [place] [address] [address] [facility] Start: 07-20-2023 End: 07-20-2023 Nursing evaluation of patient and report 07/20/2023 1:30 PM EDT Nurse Visit Gastroenterology [address] [address] Lab, Nurse Gi I [address] [place] [address] Gastroesophageal reflux disease, unspecified whether esophagitis present [K21.9] Gastroenterology Comment on above: Gastroesophageal reflux disease, unspeci fied whether esophagitis present [K21.9] Start: 07-20-2023 End: 07-20-2023 Patient encounter procedure Gastroenterology Comment on above: Gastroesophageal reflux disease, unspeci fied whether esophagitis present [K21.9] Start: 07-17-2023 [facility] Start: 07-17-2023 Referral to general surgeon [facility] Start: 07-17-2023 Hospital admission [facility] Start: 07-15-2023 End: 07-15-2023 Patient encounter procedure 07/15/2023 3:15 PM EDT Office Visit Pain Management [address] [place] [address] Vic Ramos MD [address] [place] [address] est Pain Management Comment on above: est Start: 07-15-2023 End: 07-15-2023 Patient encounter procedure 07/15/2023 7:30 AM EDT Office Visit Pain Management [address] [place] [address] May Ramey, SLIM.LABEL FOLDER [address] [place] [address] Needs medication, unknown who can order Pain Management Comment on above: Needs medication, unknown who can order Start: 07-09-2023 End: 07-09-2023 Follow-up encounter 07/09/2023 9:00 AM EDT [facility] [address] [facility] [address] [place] [address] Pablo Lebron, PSYD [address] [place] [address] follow up Neurology Comment on above: follow up Start: 07-07-2023 End: 07-07-2023 Patient encounter procedure 07/07/2023 10:30 AM EDT Office Visit Colorectal Surgery [address] [address] Vonda Hercules PA-C [address] [place] [address] Constipation, unspecified constipation type [K59.00] Colorectal Surgery Comment on above: Constipation, unspecified constipation t ype [K59.00] Start: 07-07-2023 End: 07-07-2023 Admission to same day surgery center 07/07/2023 10:00 AM EDT Procedure Colorectal Surgery [address] [address] Vonda Hercules PA-C [address] [place] [address] Constipation, unspecified constipation type [K59.00] Colorectal Surgery Comment on above: Constipation, unspecified constipation t ype [K59.00] Start: 06-23-2023 End: 06-23-2023 Patient encounter procedure 06/23/2023 9:00 AM EDT Office Visit Plastic Surgery [address] [address] Juana Padilla APRN.LABEL FOLDER [address] [place] [address] CONSULT FOR SKIN REMOVAL WEIGHT LOSS SURGERY PROVIDER LISSET KAT FV 01/2022 @ [facility] Plastic Surgery Comment on above: CONSULT FOR SKIN REMOVAL WEIGHT LOSS RED KENYON PROVIDER LISSET KAT FV 01/2022 @ [facility] Start: 06-18-2023 End: 06-18-2023 Follow-up encounter 06/18/2023 4:00 PM EDT [facility] [address] [place] [address] Vic Ramos MD [address] [place] [address] Hospital Follow Up chronic pain Pain Management Comment on above: Hospital Follow Up chronic pain Start: 06-18-2023 End: 06-18-2023 Patient encounter procedure 06/18/2023 10:00 AM EDT Office Visit General Surgery [address] [facility] [address] [place] [address] Breanna Stern APRN.LABEL FOLDER [address] [place] [address] Post PEG-J placement General Surgery Comment on above: Post PEG-J placement Start: 06-15-2023 End: 06-15-2023 Patient encounter procedure 06/15/2023 11:00 AM EDT Office Visit General Surgery [address] [address] [facility] [address] [place] [address] Breanna Stern APRN.LABEL FOLDER [address] [place] [address] Post PEG-J placement General Surgery Comment on above: Post PEG-J placement Start: 06-13-2023 BP CONTROLLED (<130/80) BP CONTROLLED (<130/80) [facility] Start: 05-30-2023 Bacteria identified in Urine by Culture [facility] Start: 04-12-2023 End: 04-12-2023 Telemedicine consultation with patient 04/12/2023 9:00 AM EST Telemedicine [facility] [address] [address] [address] [place] [address] [place] [address] [facility] Start: 11-23-2022 End: 11-24-2023 US MESENTERIC ARTERY CMPLT VAS LAB US MESENTERIC ARTERY CMPLT VAS LAB Vascular Lab [place] Chronic nausea RUQ pain Expected: 11/23/2022, Expires: 11/24/2023 [facility] Work Phone: Comment on above: Expected: 11/23/2022, Expires: Start: 11-18-2022 End: 01-18-2023 25-hydroxyvitamin D3 [Mass/volume] in Serum or Plasma VITAMIN D 25 HYDROXY Lab Routine S/P bariatric surgery Impaired intestinal absorption Expected: 11/18/2022 (Approximate), Expires: 01/18/2023 [facility] Work Phone: Comment on above: Expected: 11/18/2022 (Approximate), Expi res: 01/18/2023 Start: 11-18-2022 End: 01-18-2023 CBC panel - Blood by Automated count CBC Lab Routine S/P bariatric surgery Impaired intestinal absorption Expected: 11/18/2022 (Approximate), Expires: 01/18/2023 [facility] Work Phone: Comment on above: Expected: 11/18/2022 (Approximate), Expi res: 01/18/2023 Start: 11-18-2022 End: 01-18-2023 Cobalamin (Vitamin B12) [Mass/volume] in Serum or Plasma VITAMIN B12 BLOOD Lab Routine S/P bariatric surgery Impaired intestinal absorption Expected: 11/18/2022 (Approximate), Expires: 01/18/2023 [facility] Work Phone: Comment on above: Expected: 11/18/2022 (Approximate), Expi res: 01/18/2023 Start: 11-18-2022 End: 01-18-2023 Comprehensive metabolic 2000 panel - Serum or Plasma COMP METABOLIC PANEL Lab Routine S/P bariatric surgery Impaired intestinal absorption Expected: 11/18/2022 (Approximate), Expires: 01/18/2023 [facility] Work Phone: Comment on above: Expected: 11/18/2022 (Approximate), Expi res: 01/18/2023 Start: 11-18-2022 End: 01-18-2023 Ferritin [Mass/volume] in Serum or Plasma FERRITIN BLD Lab Routine S/P bariatric surgery Impaired intestinal absorption Expected: 11/18/2022 (Approximate), Expires: 01/18/2023 [facility] Work Phone: Comment on above: Expected: 11/18/2022 (Approximate), Expi res: 01/18/2023 Start: 11-18-2022 End: 01-18-2023 Folate [Mass/volume] in Serum or Plasma FOLATE SERUM Lab Routine S/P bariatric surgery Impaired intestinal absorption Expected: 11/18/2022 (Approximate), Expires: 01/18/2023 [facility] Work Phone: Comment on above: Expected: 11/18/2022 (Approximate), Expi res: 01/18/2023 Start: 11-18-2022 End: 01-18-2023 Iron and Iron binding capacity panel - Serum or Plasma IRON + TIBC Lab Routine S/P bariatric surgery Impaired intestinal absorption Expected: 11/18/2022 (Approximate), Expires: 01/18/2023 [facility] Work Phone: Comment on above: Expected: 11/18/2022 (Approximate), Expi res: 01/18/2023 Start: 11-18-2022 End: 01-18-2023 Parathyrin.intact [Mass/volume] in Serum or Plasma PTH INTACT BLD Lab Routine S/P bariatric surgery Impaired intestinal absorption Expected: 11/18/2022 (Approximate), Expires: 01/18/2023 [facility] Work Phone: Comment on above: Expected: 11/18/2022 (Approximate), Expi res: 01/18/2023 Start: 11-18-2022 End: 01-18-2023 Retinol [Mass/volume] in Serum or Plasma VITAMIN A/RETINOL Lab Routine S/P bariatric surgery Impaired intestinal absorption Expected: 11/18/2022 (Approximate), Expires: 01/18/2023 [facility] Work Phone: Comment on above: Expected: 11/18/2022 (Approximate), Expi res: 01/18/2023 Start: 11-18-2022 End: 01-18-2023 VITAMIN B1 (THIAMINE), WHOLE BLOOD VITAMIN B1 (THIAMINE), WHOLE BLOOD Lab Routine S/P bariatric surgery Impaired intestinal absorption Expected: 11/18/2022 (Approximate), Expires: 01/18/2023 [facility] Work Phone: Comment on above: Expected: 11/18/2022 (Approximate), Expi res: 01/18/2023 Start: 11-18-2022 End: 01-18-2023 Zinc [Mass/volume] in Serum or Plasma ZINC BLD Lab Routine S/P bariatric surgery Impaired intestinal absorption Expected: 11/18/2022 (Approximate), Expires: 01/18/2023 [facility] Work Phone: Comment on above: Expected: 11/18/2022 (Approximate), Expi res: 01/18/2023 Start: 11-04-2022 End: 01-04-2023 Amylase [Enzymatic activity/volume] in Serum or Plasma [facility] Work Phone: Comment on above: Expected: 11/04/2022, Expires: 3 Start: 11-04-2022 End: 01-04-2023 Lipase [Enzymatic activity/volume] in Serum or Plasma [facility] Work Phone: Comment on above: Expected: 11/04/2022, Expires: 3 Start: 10-16-2022 Covid-19 Vaccine ( season) Covid-19 Vaccine () [facility] Start: 10-16-2022 Influenza vaccination [facility] Start: 09-15-2022 Influenza vaccination Flu vaccine (#1) [facility] Start: 07-28-2022 End: 09-27-2022 CBC W Auto Differential panel - Blood CBC + DIFF Lab Routine Rash and nonspecific skin eruption Expected: 07/28/2022, Expires: 09/27/2022 [facility] Work Phone: Comment on above: Expected: 07/28/2022, Expires: 3 Start: 07-28-2022 End: 09-27-2022 Comprehensive metabolic 2000 panel - Serum or Plasma COMP METABOLIC PANEL Lab Routine Rash and nonspecific skin eruption Facial edema Expected: 07/28/2022, Expires: 09/27/2022 [facility] Work Phone: Comment on above: Expected: 07/28/2022, Expires: 3 Start: 06-12-2022 End: 08-12-2022 MISAEL BY IFA WITH REFLEX [facility] Work Phone: Comment on above: Expected: 06/12/2022, Expires: 3 Start: 06-12-2022 End: 08-12-2022 Borrelia burgdorferi IgG and IgM panel - Serum [facility] Work Phone: Comment on above: Expected: 06/12/2022, Expires: 3 Start: 06-12-2022 End: 08-12-2022 Cyclic citrullinated peptide IgG Ab [Units/volume] in Serum or Plasma [facility] Work Phone: Comment on above: Expected: 06/12/2022, Expires: 3 Start: 06-12-2022 End: 08-12-2022 MONOCLONAL PROTEIN, SERUM (BLOOD) [facility] Work Phone: Comment on above: Expected: 06/12/2022, Expires: 3 Start: 06-12-2022 End: 08-12-2022 Niacin [Mass/volume] in Serum or Plasma [facility] Work Phone: Comment on above: Expected: 06/12/2022, Expires: 3 Start: 06-12-2022 End: 08-12-2022 PROTEIN ELECTROPHORESIS SERUM W/INTERP [facility] Work Phone: Comment on above: Expected: 06/12/2022, Expires: 3 Start: 06-12-2022 End: 08-12-2022 Pyridoxine [Mass/volume] in Serum or Plasma [facility] Work Phone: Comment on above: Expected: 06/12/2022, Expires: 3 Start: 06-12-2022 End: 08-12-2022 VITAMIN B1 (THIAMINE), WHOLE BLOOD [facility] Work Phone: Comment on above: Expected: 06/12/2022, Expires: Start: 05-03-2022 End: 07-03-2022 25-hydroxyvitamin D3 [Mass/volume] in Serum or Plasma VITAMIN D 25 HYDROXY Lab Routine S/P gastric bypass Postoperative malabsorption Expected: 05/03/2022 (Approximate), Expires: 07/03/2022 [facility] Work Phone: Comment on above: Expected: 05/03/2022 (Approximate), Expi res: 07/03/2022 Start: 05-03-2022 End: 07-03-2022 CBC panel - Blood by Automated count CBC Lab Routine S/P gastric bypass Postoperative malabsorption Expected: 05/03/2022 (Approximate), Expires: 07/03/2022 [facility] Work Phone: Comment on above: Expected: 05/03/2022 (Approximate), Expi res: 07/03/2022 Start: 05-03-2022 End: 07-03-2022 Cobalamin (Vitamin B12) [Mass/volume] in Serum or Plasma VITAMIN B12 BLOOD Lab Routine S/P gastric bypass Postoperative malabsorption Expected: 05/03/2022 (Approximate), Expires: 07/03/2022 [facility] Work Phone: Comment on above: Expected: 05/03/2022 (Approximate), Expi res: 07/03/2022 Start: 05-03-2022 End: 07-03-2022 Comprehensive metabolic 2000 panel - Serum or Plasma COMP METABOLIC PANEL Lab Routine S/P gastric bypass Postoperative malabsorption Expected: 05/03/2022 (Approximate), Expires: 07/03/2022 [facility] Work Phone: Comment on above: Expected: 05/03/2022 (Approximate), Expi res: 07/03/2022 Start: 05-03-2022 End: 07-03-2022 Ferritin [Mass/volume] in Serum or Plasma FERRITIN BLD Lab Routine S/P gastric bypass Postoperative malabsorption Expected: 05/03/2022 (Approximate), Expires: 07/03/2022 [facility] Work Phone: Comment on above: Expected: 05/03/2022 (Approximate), Expi res: 07/03/2022 Start: 05-03-2022 End: 07-03-2022 Folate [Mass/volume] in Serum or Plasma FOLATE SERUM Lab Routine S/P gastric bypass Postoperative malabsorption Expected: 05/03/2022 (Approximate), Expires: 07/03/2022 [facility] Work Phone: Comment on above: Expected: 05/03/2022 (Approximate), Expi res: 07/03/2022 Start: 05-03-2022 End: 07-03-2022 Iron and Iron binding capacity panel - Serum or Plasma IRON + TIBC Lab Routine S/P gastric bypass Postoperative malabsorption Expected: 05/03/2022 (Approximate), Expires: 07/03/2022 [facility] Work Phone: Comment on above: Expected: 05/03/2022 (Approximate), Expi res: 07/03/2022 Start: 05-03-2022 End: 07-03-2022 Parathyrin.intact [Mass/volume] in Serum or Plasma PTH INTACT BLD Lab Routine S/P gastric bypass Postoperative malabsorption Expected: 05/03/2022 (Approximate), Expires: 07/03/2022 [facility] Work Phone: Comment on above: Expected: 05/03/2022 (Approximate), Expi res: 07/03/2022 Start: 05-03-2022 End: 07-03-2022 Thyrotropin [Units/volume] in Serum or Plasma TSH BLD Lab Routine S/P gastric bypass Postoperative malabsorption Expected: 05/03/2022 (Approximate), Expires: 07/03/2022 [facility] Work Phone: Comment on above: Expected: 05/03/2022 (Approximate), Expi res: 07/03/2022 Start: 05-03-2022 End: 07-03-2022 VITAMIN B1 (THIAMINE), WHOLE BLOOD VITAMIN B1 (THIAMINE), WHOLE BLOOD Lab Routine S/P gastric bypass Postoperative malabsorption Expected: 05/03/2022 (Approximate), Expires: 07/03/2022 [facility] Work Phone: Comment on above: Expected: 05/03/2022 (Approximate), Expi res: 07/03/2022 Start: 12-25-2021 End: 12-17-2022 PH HUERTA INSERT OFF MEDS PH HUERTA INSERT OFF MEDS Endoscopy Routine Regurgitation of food Gastroesophageal reflux disease, unspecified whether esophagitis present Expected: 12/25/2021, Expires: 12/17/2022 [facility] Work Phone: Comment on above: Expected: 12/25/2021, Expires: 3 Start: 10-16-2021 Influenza vaccination [facility] Start: 10-09-2021 End: 12-09-2021 25-hydroxyvitamin D3 [Mass/volume] in Serum or Plasma VITAMIN D 25 HYDROXY Lab Routine S/P laparoscopic sleeve gastrectomy Expected: 10/09/2021, Expires: 12/09/2021 [facility] Work Phone: Comment on above: Expected: 10/09/2021, Expires: 2 Start: 10-09-2021 End: 12-09-2021 Cobalamin (Vitamin B12) [Mass/volume] in Serum or Plasma VITAMIN B12 BLOOD Lab Routine S/P laparoscopic sleeve gastrectomy Expected: 10/09/2021, Expires: 12/09/2021 [facility] Work Phone: Comment on above: Expected: 10/09/2021, Expires: 2 Start: 10-09-2021 End: 12-09-2021 Ferritin [Mass/volume] in Serum or Plasma FERRITIN BLD Lab Routine S/P laparoscopic sleeve gastrectomy Expected: 10/09/2021, Expires: 12/09/2021 [facility] Work Phone: Comment on above: Expected: 10/09/2021, Expires: 2 Start: 10-09-2021 End: 12-09-2021 Folate [Mass/volume] in Serum or Plasma FOLATE SERUM Lab Routine S/P laparoscopic sleeve gastrectomy Expected: 10/09/2021, Expires: 12/09/2021 [facility] Work Phone: Comment on above: Expected: 10/09/2021, Expires: 2 Start: 10-09-2021 End: 12-09-2021 Hemoglobin A1c in Blood HGB A1C Lab Routine S/P laparoscopic sleeve gastrectomy Expected: 10/09/2021, Expires: 12/09/2021 [facility] Work Phone: Comment on above: Expected: 10/09/2021, Expires: 2 Start: 10-09-2021 End: 12-09-2021 Iron and Iron binding capacity panel - Serum or Plasma IRON + TIBC Lab Routine S/P laparoscopic sleeve gastrectomy Expected: 10/09/2021, Expires: 12/09/2021 [facility] Work Phone: Comment on above: Expected: 10/09/2021, Expires: 2 Start: 10-09-2021 End: 12-09-2021 Lipid 1996 panel - Serum or Plasma LIPID PANEL BASIC Lab Routine S/P laparoscopic sleeve gastrectomy Expected: 10/09/2021, Expires: 12/09/2021 [facility] Work Phone: Comment on above: Expected: 10/09/2021, Expires: 2 Start: 10-09-2021 End: 12-09-2021 Parathyrin.intact [Mass/volume] in Serum or Plasma PTH INTACT BLD Lab Routine S/P laparoscopic sleeve gastrectomy Expected: 10/09/2021, Expires: 12/09/2021 [facility] Work Phone: Comment on above: Expected: 10/09/2021, Expires: 2 Start: 10-09-2021 End: 12-09-2021 Thyrotropin [Units/volume] in Serum or Plasma TSH BLD Lab Routine S/P laparoscopic sleeve gastrectomy Expected: 10/09/2021, Expires: 12/09/2021 [facility] Work Phone: Comment on above: Expected: 10/09/2021, Expires: 2 Start: 10-09-2021 End: 12-09-2021 VITAMIN B1 (THIAMINE), WHOLE BLOOD VITAMIN B1 (THIAMINE), WHOLE BLOOD Lab Routine S/P laparoscopic sleeve gastrectomy Expected: 10/09/2021, Expires: 12/09/2021 [facility] Work Phone: Comment on above: Expected: 10/09/2021, Expires: Start: 06-23-2021 End: 06-23-2021 Patient encounter procedure 06/23/2021 Office Visit Sports Medicine Belen Stovall MD [address] [address] Sports Medicine Outpatient Care [facility] Start: 04-15-2021 COVID-19 VACCINE (3 - Booster for Woo series) COVID-19 VACCINE (3 - Booster for Woo series) [facility] Start: 10-16-2020 Influenza vaccination [facility] Start: 10-17-2019 Influenza vaccination INFLUENZA VACCINE (#1) [facility] Start: 2019 HPV TESTING HPV TESTING [facility] Start: 2019 Screening for malignant neoplasm of cervix [facility] Start: 2010 PAP TESTING PAP TESTING [facility] Start: 2010 Screening for malignant neoplasm of cervix [facility] Start: 2008 DTaP/Tdap/Td vaccine (1 - Tdap) DTaP/Tdap/Td vaccine (1 - Tdap) [facility] Work Phone: Start: 2008 Hepatitis A Vaccines (1 of 2 - Risk 2-dose series) Hepatitis A Vaccines (1 of 2 - Risk 2-dose series) [facility] Start: 2008 Hepatitis B Vaccine (1 of 3 - 19+ 3-dose series) Hepatitis B Vaccine (1 of 3 - 19+ 3-dose series) [facility] Start: 2008 Hepatitis B Vaccines (1 of 3 - 19+ 3-dose series) Hepatitis B Vaccines (1 of 3 - 19+ 3-dose series) [facility] Start: 2008 Third diphtheria, tetanus and acellular pertussis (DTaP) vaccination TDAP (ADULT) [facility] Start: 2008 Urine microalbumin profile DTAP,TDAP,TD (1 - Tdap) [facility] Start: 2007 ANNUAL PCP TEAM CHRONIC DISEASE VISIT ANNUAL PCP TEAM CHRONIC DISEASE VISIT [facility] Start: 2007 BP CONTROLLED (<130/80) BP CONTROLLED (<130/80) [facility] Start: 2007 HEPATITIS C SCREENING HEPATITIS C SCREENING [facility] Start: 2007 Hepatitis C screening [facility] Start: 2007 HIV SCREENING HIV SCREENING [facility] Start: 2007 HIV screening HIV Screening [facility] Start: 2007 SPIROMETRY SPIROMETRY [facility] Start: 2007 Tetanus vaccination TETANUS [facility] Start: 2004 HIV screening [facility] Start: 2002 HIV screening HIV SCREENING DISCUSSION [facility] Start: 2002 Varicella vaccination Varicella Vaccines (1 of 2 - 13+ 2-dose series) [facility] Start: 2001 COVID-19 VACCINE (1) COVID-19 [facility]ACCINE (1) [facility] Start: 2001 Depression Screen Depression Screen [facility] Start: 1995 PNEUMOCOCCAL (1 - PCV) PNEUMOCOCCAL (1 - PCV) [facility] Start: 1995 Pneumococcal vaccination Pneumococcal Vaccine (1 - PCV) [facility] Start: 1995 Pneumococcal Vaccine: Pediatrics (0 to 5 Years) and At-Risk Patients (6 to 64 Years) (1 of 2 - PCV) Pneumococcal Vaccine: Pediatrics (0 to 5 Years) and At-Risk Patients (6 to 64 Years) (1 of 2 - PCV) [facility] Start: 1990 MMR Vaccines (1 of 1 - Standard series) MMR Vaccines (1 of 1 - Standard series) [facility] Start: 1990 Varicella vaccination Varicella Vaccines (1 of 2 - 2-dose childhood series) [facility] Start: 1990 Varicella vaccine (1 of 2 - 2-dose childhood series) Varicella vaccine (1 of 2 - 2-dose childhood series) [facility] Start: 1989 HEPATITIS B (1 of 3 - 3-dose series) HEPATITIS B (1 of 3 - 3-dose series) [facility] Start: 1989 Hepatitis B Vaccine (1 of 3 - 3-dose series) Hepatitis B Vaccine (1 of 3 - 3-dose series) [facility] Start: 1989 Hepatitis B Vaccines (1 of 3 - 3-dose series) Hepatitis B Vaccines (1 of 3 - 3-dose series) [facility] Start: 1989 Hepatitis C antibody, confirmatory test HEPATITIS C VIRUS SCREENING [facility] Start: 1989 Hepatitis C screening [facility] Start: 1989 HIV screening HIV Screening [facility] Start: 1989 Lipid panel Lipid Panel [facility] Start: 1989 Thyroid stimulating hormone measurement TSH [facility] Start: 1989 TSH Qn TSH [facility] Start: 1989 Yearly Adult Physical Yearly Adult Physical [facility] End: 07-23-2023 ADULT [place] ANORECTAL MANOMETRY [facility] ANORECTAL MANOMETRY Endoscopy Routine Constipation, unspecified constipation type 1 Occurrences starting 07/22/2022 until 07/23/2023 [facility] Work Phone: Comment on above: 1 Occurrences starting 07/22/2022 until 07/23/2023 End: 03-23-2023 Basic metabolic 2000 panel - Serum or Plasma Basic Metabolic Panel Lab Routine Morning draw (Lab) for 3 Occurrences starting 03/21/2023 until 03/23/[address] [facility] Work Phone: Comment on above: Morning draw (Lab) for 3 Occurrences sta rting 03/21/2023 until 03/23/2023 End: 03-12-2023 CBC panel - Blood by Automated count CBC Lab Routine Morning draw (Lab) for 3 Occurrences starting 03/10/2023 until 03/12/2023, 1 completed [facility] Work Phone: Comment on above: Morning draw (Lab) for 3 Occurrences sta rting 03/10/2023 until 03/12/2023, 1 completed End: 03-23-2023 CBC panel - Blood by Automated count CBC Lab Routine Morning draw (Lab) for 3 Occurrences starting 03/21/2023 until 03/23/2023 [facility] Work Phone: Comment on above: Morning draw (Lab) for 3 Occurrences sta rting 03/21/2023 until 03/23/2023 End: 03-16-2023 CBC W Auto Differential panel - Blood CBC and Auto Differential Lab STAT Once (Lab) for 1 Occurrences starting 03/16/2023 until 03/16/2023 [facility] Work Phone: Comment on above: Once (Lab) for 1 Occurrences starting until 03/16/2023 End: 03-16-2023 Comprehensive metabolic 2000 panel - Serum or Plasma Comprehensive metabolic panel Lab STAT STAT (Lab) for 1 Occurrences starting 03/16/2023 until 03/16/[address] [facility] Work Phone: Comment on above: STAT (Lab) for 1 Occurrences starting until 03/16/2023 End: 01-03-2024 Ct angio abd&plvis cntrst mtrl w/wo cntrst img CTA ABD/PEL W IVCON Radiology Routine Generalized abdominal pain 1 Occurrences starting 12/04/2022 until 01/03/2024 [facility] Work Phone: Comment on above: 1 Occurrences starting 12/04/2022 until 01/03/2024 ECG 12 Lead ECG 12 Lead ECG STAT As needed until discontinued starting 06/29/2023 [facility] Work Phone: Comment on above: As needed until discontinued starting ECG 12 Lead ECG 12 Lead ECG STAT 06/29/2023 8:50 PM EDT [facility] Work Phone: End: 01-28-2023 ECG COMPLETE ECG COMPLETE ECG Routine Pre-op evaluation 1 Occurrences starting 01/28/2022 until 01/28/2023 [facility] Work Phone: Comment on above: 1 Occurrences starting 01/28/2022 until 01/28/2023 End: 11-17-2022 EGD - THERAPEUTIC, EUS, OR TUBE INTERVENTIONS EGD - THERAPEUTIC, EUS, OR TUBE INTERVENTIONS Endoscopy Routine Gastroesophageal reflux disease without esophagitis 1 Occurrences starting 11/17/2021 until 11/17/2022 [facility] Work Phone: Comment on above: 1 Occurrences starting 11/17/2021 until 11/17/2022 End: 03-05-2023 EGD - THERAPEUTIC, EUS, OR TUBE INTERVENTIONS EGD - THERAPEUTIC, EUS, OR TUBE INTERVENTIONS Endoscopy Routine Esophageal dysphagia S/P gastric bypass 1 Occurrences starting 03/05/2022 until 03/05/2023 [facility] Work Phone: Comment on above: 1 Occurrences starting 03/05/2022 until 03/05/2023 End: 04-27-2024 EGD - THERAPEUTIC, EUS, OR TUBE INTERVENTIONS EGD - THERAPEUTIC, EUS, OR TUBE INTERVENTIONS Endoscopy Routine Gastroesophageal reflux disease, unspecified whether esophagitis present 1 Occurrences starting 04/28/2023 until 04/27/2024 [facility] Work Phone: Comment on above: 1 Occurrences starting 04/28/2023 until 04/27/2024 End: 10-09-2022 EGD BARIATRIC EGD BARIATRIC Endoscopy Routine Gastroesophageal reflux disease, unspecified whether esophagitis present Bariatric surgery status Class 1 obesity with serious comorbidity and body mass index (BMI) of 31.0 to 31.9 in adult, unspecified obesity type S/P laparoscopic sleeve gastrectomy 1 Occurrences starting 10/09/2021 until 10/09/2022 [facility] Work Phone: Comment on above: 1 Occurrences starting 10/09/2021 until 10/09/2022 End: 10-21-2023 EGD DIAGNOSTIC EGD DIAGNOSTIC Endoscopy Routine Epigastric pain 1 Occurrences starting 10/20/2022 until 10/21/2023 [facility] Work Phone: Comment on above: 1 Occurrences starting 10/20/2022 until 10/21/2023 Electrocardiogram, 12-lead PRN ACS symptoms Electrocardiogram, 12-lead PRN ACS symptoms ECG Routine As needed until discontinued starting 03/05/[address] [facility] Work Phone: Comment on above: As needed until discontinued starting Electrocardiogram, 12-lead PRN ACS symptoms Electrocardiogram, 12-lead PRN ACS symptoms ECG Routine 03/08/2023 10:45 AM EST [facility] Work Phone: Electrocardiogram, 12-lead PRN ACS symptoms Electrocardiogram, 12-lead PRN ACS symptoms ECG Routine As needed until discontinued starting 03/16/2023 [facility] Work Phone: Comment on above: As needed until discontinued starting Glucose [Mass/volume ] in Serum or Plasma POCT Glucose Point of Care Testing - Docked Device Routine Every 4 hours (Lab) until discontinued starting 03/05/2023, [address] [facility] Work Phone: Comment on above: Every 4 hours (Lab) until discontinued s tarting 03/05/2023, 30 completed End: 12-04-2023 Hepatobil syst imag inc gb w/pharma intervenj NM HEPATOBILIARY W EF AND/OR RX Radiology Routine Nausea RUQ pain History of cholecystectomy 1 Occurrences starting 11/04/2022 until 12/04/2023 [facility] Work Phone: Comment on above: 1 Occurrences starting 11/04/2022 until 12/04/2023 End: 03-18-2023 Incentive spirometry Instruct Incentive spirometry Instruct Respiratory Care Routine Once for 1 Occurrences starting 03/18/2023 until 03/18/2023 [facility] Work Phone: Comment on above: Once for 1 Occurrences starting 03/18/19 24 until 03/18/2023 Injx anes celiac ple xus w/wo radiologic monitrng DIAG/THER NRV BLK CELIAC PLEXUS Procedures Routine Chronic pain syndrome Ordered: 01/11/2023 [facility] Work Phone: Comment on above: Ordered: 01/11/2023 End: 06-30-2023 Methicillin resistant Staphylococcus aureus [Presence] in Nose by Organism specific culture Staphylococcus Aureus/MRSA Colonization, Culture Microbiology Routine Once (Lab) for 1 Occurrences starting 06/30/2023 until 06/30/2023 [facility] Work Phone: Comment on above: Once (Lab) for 1 Occurrences starting until 06/30/2023 Patient Education [facility] Work Phone: Patient referral [facility] Work Phone: End: 04-27-2024 PH HUERTA INSERT ON MEDS PH HUERTA INSERT ON MEDS Endoscopy Routine Gastroesophageal reflux disease, unspecified whether esophagitis present 1 Occurrences starting 04/28/2023 until 04/27/2024 [facility] Work Phone: Comment on above: 1 Occurrences starting 04/28/2023 until 04/27/2024 End: 11-18-2022 PH IMPEDANCE INSERT OFF MEDS PH IMPEDANCE INSERT OFF MEDS Endoscopy Routine Gastroesophageal reflux disease without esophagitis S/P laparoscopic sleeve gastrectomy 1 Occurrences starting 11/19/2021 until 11/18/2022 [facility] Work Phone: Comment on above: 1 Occurrences starting 11/19/2021 until 11/18/2022 End: 03-05-2023 Pulse oximetry, continuous Pulse oximetry, continuous Respiratory Care Routine Continuous until discontinued starting 03/05/2023 [facility] Work Phone: Comment on above: Continuous until discontinued starting 0 03/05/2023 End: 06-30-2023 Pulse oximetry, continuous Pulse oximetry, continuous Respiratory Care Routine Continuous until discontinued starting 06/30/2023 [facility] Work Phone: Comment on above: Continuous until discontinued starting 0 06/30/2023 End: 10-18-2023 Radiologic exam upr gi trc double contrast study XR UPPER GI ROUTINE DOUBLE CONTRAST/AIR Radiology Routine S/P bariatric surgery Gastroesophageal reflux disease, unspecified whether esophagitis present 1 Occurrences starting 09/18/2022 until 10/18/2023 [facility] Work Phone: Comment on above: 1 Occurrences starting 09/18/2022 until 10/18/2023 SURGICAL PATHOLOGY [facility] Work Phone: Comment on above: Release Upon Ordering for 1 Occurrences starting 12/25/2021, [address] [facility] Work Phone: Comment on above: Release Upon Ordering for 1 Occurrences starting 03/19/2023, 1 completed End: 03-10-2023 Urethral Catheter Removal Urethral Catheter Removal Procedures Routine Once for 1 Occurrences starting 03/10/2023 until 03/10/[address] [facility] Work Phone: Comment on above: Once for 1 Occurrences starting 03/10/19 until 03/10/2023 End: 07-03-2023 Urethral Catheter Removal Urethral Catheter Removal Procedures Routine Once for 1 Occurrences starting 07/03/2023 until 07/03/2023 [facility] Work Phone: Comment on above: Once for 1 Occurrences starting 07/03/19 until 07/03/2023 End: 12-04-2023 US ABD RIGHT UPPER QUADRANT US ABD RIGHT UPPER QUADRANT Radiology Routine Nausea RUQ pain History of cholecystectomy 1 Occurrences starting 11/04/2022 until 12/04/2023 [facility] Work Phone: Comment on above: 1 Occurrences starting 11/04/2022 until 12/04/2023 US ABD RIGHT UPPER QUADRANT US ABD RIGHT UPPER QUADRANT Radiology Routine Nausea RUQ pain History of cholecystectomy 11/04/2022 11:15 AM EDT [facility] Work Phone: End: 12-04-2023 XR KNEE GENERAL 4V AP BOTH/PA BOTH/LAT/MERC RIGHT XR KNEE GENERAL 4V AP BOTH/PA BOTH/LAT/MERC RIGHT Radiology Routine Right knee pain, unspecified chronicity 1 Occurrences starting 11/04/2022 until 12/04/2023 [facility] Work Phone: Comment on above: 1 Occurrences starting 11/04/2022 until 12/04/2023 [facility] FV OR FV OR [facility] Immunizations Immunization Date Immunization Notes Care Provider [facility] 11-12-2022 influenza, injectabl e, quadrivalent, preservative free Deacon Kat MD Work Phone: [facility] 11-16-2021 influenza virus vaccine, unspecified formulation [facility] 02-18-2021 SARS-CoV-2 (COVID-19 ) mRNA BNT-162b2 vax [facility] Comment on above: Result Comment: 2022: TPVALL 01-01-2021 influenza virus vaccine, unspecified formulation [facility] 01-01-2021 influenza, seasonal, injectable Kuldip Yousif MD Work Phone: [facility] 12-25-2020 influenza virus vaccine, unspecified formulation [facility] 12-25-2020 influenza, injectabl e, quadrivalent, preservative free Kuldip Yousif MD Work Phone: [facility] 06-23-2020 COVID-19 Vaccine Woo - Documentation Purposes Only Shanna June Other [facility] Comment on above: Result Comment: 2022: TPVAL 11-28-2018 influenza, seasonal, injectable Shanna June Other [facility] 11-28-2018 influenza virus vaccine, unspecified formulation [facility] 09-21-2016 tetanus toxoid, redu lauren diphtheria toxoid, and acellular pertussis vaccine, adsorbed Kuldip Yousif MD Work Phone: [facility] Payers Date Payer Category Payer Unknown [id number] 2023 Self-pay [id number] 2020 Private Health Insurance [id number] 2020 [facility] Health [facility] [id number] 2020-Present [phone] [address] [address] [place] [address] O [id number]. [id number] 2017 Unknown 2017 Unknown [employer] MO [id number] 2017-Present [id number] 1.2.840.552580.1.13.172.2. 7.3.730633.315 1989 Unknown [id number] 2.16.840.1.921983.3.579.2. 594 1989 Unknown [id number] 2.16.840.1.186019.3.579.2. 594 1989 Unknown [id number] 2.16.840.1.953415.3.579.2. 593 1989 Unknown [id number] 2.16.840.1.303328.3.579.2. 593 1989 Unknown [id number] 2.16.840.1.593942.3.579.2. 593 1989 Unknown [id number] 2.16.840.1.540031.3.579.2. 593 1989 Unknown [id number] 2.16.840.1.372148.3.579.2. 593 1989 Unknown [id number] 2.16.840.1.855481.3.579.2. 593 1989 Unknown [id number] 2.16.840.1.440555.3.579.2. 593 1989 Unknown [id number] 2.16.840.1.135675.3.579.2. 593 1989 Unknown [id number] 2.16.840.1.676870.3.579.2. 593 1989 Unknown [id number] 2.16.840.1.375149.3.579.2. 593 1989 Unknown [id number] 2.16.840.1.686934.3.579.2. 593 1989 Unknown [id number] 2.16.840.1.203711.3.579.2. 593 1989 Unknown [id number] 2.16.840.1.971772.3.579.2. 173 1989 Unknown [id number] 2.16.840.1.793567.3.579.2. 173 1989 Unknown [id number] 2.16.840.1.913514.3.579.2. 173 1989 Unknown [id number] 2.16.840.1.455588.3.579.2. 983 1989 Unknown [id number] 2.16.840.1.886484.3.579.2. 196 1989 Unknown [id number] 2.16.840.1.304827.3.579.2. 182 1989 Unknown [id number] 2.16.840.1.449055.3.579.2. 182 1989 Unknown [id number] 2.16.840.1.168446.3.579.2. 1243 1989 Unknown [id number] 2.16.840.1.025356.3.579.2. 1244 1989 Unknown [id number] 2.16.840.1.447006.3.579.2. 1243 1989 Unknown [id number] 2.16.840.1.417032.3.579.2. 1243 1989 Unknown [id number] 2.16.840.1.722800.3.579.2. 1243 1989 Unknown [id number] 2.16840.1.268002.3.579.2. 1243 1989 Unknown [id number] 2.16.840.1.428785.3.579.2. 1243 1989 Unknown [id number] 2.16.840.1.607187.3.579.2. 1243 1989 Unknown [id number] 2.16.840.1.601969.3.579.2. 1243 1989 Unknown [id number] 2.16840.1.925503.3.579.2. 1243 1989 Unknown [id number] 2.16.840.1.116105.3.579.2. 1243 1989 Unknown [id number] 2.16.840.1.950795.3.579.2. 1243 1989 Unknown [id number] 2.16.840.1.188031.3.579.2. 1243 1989 Unknown [id number] 2.16.840.1.946604.3.579.2. 1243 1989 Unknown [id number] 2.16.840.1.421914.3.579.2. 1244 1989 Unknown [id number] 2.16.840.1.438410.3.579.2. 1259 1989 Unknown [id number] 2.16.840.1.165864.3.579.2. 1259 1989 Unknown [id number] 2.16.840.1.693054.3.579.2. 9 1989 Unknown [id number] 2.16.840.1.534482.3.579.2. 1989 Unknown [id number] 2.16.840.1.816358.3.579.2 1989 Unknown [id number] 2.16.840.1.220950.3.579.2 1989 Unknown [id number] 2.840.1.449339.3.579.2 1989 Unknown [id number] 2.16.840.1.767734.3.579.2 1989 Unknown [id number] 2.16.840.1.423713.3.579.2 1989 Unknown [id number] 2.16.840.1.502201.3.579.2. 1989 Unknown [id number] 2.16840.1.211412.3.579.2 1989 Unknown [id number] 2.16.840.1.744051.3.579.2 1989 Unknown [id number] 2.16.840.1.248473.3.579.2 1989 Unknown [id number] 2.16.840.1.046367.3.579.2 1989 Unknown [id number] 2.16.840.1.443869.3.579.2 1989 Unknown [id number] 2.16.840.1.999245.3.579.2 1989 Unknown [id number] 2.16.840.1.152264.3.579.2 1989 Unknown [id number] 2.16.840.1.430431.3.579.2 1989 Unknown [id number] 2.16.840.1.363214.3.579.2 1989 Unknown [id number] 2.16.840.1.327602.3.579.2 1989 Unknown [id number] 2.16.840.1.056264.3.579.2 1989 Unknown [id number] 2.16.840.1.930584.3.579. 1989 Unknown [id number] 2.16.840.1.871415.3.579. 1989 Unknown [id number] 2.16.840.1.319709.3.579. 1989 Unknown [id number] 2.16.840.1.146040.3.579.2 1989 Unknown [id number] 2.16.840.1.901062.3.579.2 1989 Unknown [id number] 2.16.840.1.604110.3.579.2 1989 Unknown [id number] 2.16.840.1.552446.3.579.2 1989 Unknown [id number] 2.16.840.1.338716.3.579.2 1989 Unknown [id number] 2.16.840.1.316750.3.579.2 1989 Unknown [id number] 2.16.840.1.353781.3.579. 1989 Unknown [id number] 2.16.840.1.460943.3.579.2. 727 1989 Unknown [id number] 2.16.840.1.043000.3.579.2. 727 1989 Unknown [id number] 2.16.840.1.121341.3.579.2. 727 1989 Unknown [id number] 2.16.840.1.571162.3.579.2. 727 1959 Unknown [id number] 1.2.840.456730.1.13.239.2. 7.3.789119.315 1959 Unknown [id number] Unknown [id number] 2.16.840.1.752648.3.579.2. 531 Unknown [id number] 2.16.840.1.388031.3.579.2. 531 Unknown [id number] 2.16.840.1.352612.3.579.2. 531 Unknown [id number] 2.16.840.1.484866.3.579.2. 531 Unknown [id number] 2.16.840.1.914422.3.579.2. 531 Unknown [id number] 2.16.840.1.290347.3.579.2. 531 Social History Date Type Detail Facility Start: 01-30-2020 End: 08-14-2023 Tobacco smoking status KYIS Never smoker [facility] Start: 01-30-2020 End: 01-28-2022 Tobacco use and exposure Never used [facility] Start: 01-30-2020 End: 11-02-2022 Alcohol intake Current non-drinker of alcohol (finding) [facility] Start: 1990 Sex Assigned At Not on file [facility] Start: 06-08-2021 End: 06-29-2023 Exposure to SARS-CoV-2 (event) Not sure [facility] Start: 05-06-2021 End: 08-09-2023 Alcohol intake Ex-drinker (finding) [facility] Start: 10-16-2019 End: 06-20-2022 History SDOH Financial 5 [facility] Start: 10-16-2019 End: 06-20-2022 History SDOH Food Worry 1 [facility] Start: 10-16-2019 End: 06-20-2022 History SDOH Transport Med 2 [facility] Start: 10-15-2019 Education 18 [facility] Start: 06-17-2022 End: 09-18-2022 Sex Assigned At [facility] Start: 10-04-2021 End: 01-01-2022 Exposure to SARS-CoV-2 (event) Unable to assess [facility] Tobacco smoking status Never [facility] Start: 06-17-2022 End: 09-18-2022 History of Social function [facility] Work Phone: (I/We) worried wheth er (my/our) food would run out before (I/we) got money to buy more. Never true [facility] Work Phone: In the past 12 month s, was there a time when you were not able to pay the mortgage or rent on time? No [facility] Work Phone: Do you belong to any clubs or organizations such as restorationist groups, unions, fraternal or athletic groups, or school groups? Yes [facility] Are you now , , , , never or living with a partner? [facility] How often to you hav e a drink containing alcohol? Never [facility] How hard is it for y ou to pay for the very basics like food, housing, medical care, and heating Somewhat hard [facility] Do you feel stress - tense, restless, nervous, or anxious, or unable to sleep at night because your mind is troubled all the time - these days [OSQ] To some extent [facility] Start: 11-12-2017 Gender identity Identifies as female gender (finding) [facility] How hard is it for y ou to pay for the very basics like food, housing, medical care, and heating Hard [facility] (I/We) worried wheth er (my/our) food would run out before (I/we) got money to buy more. Sometimes true [facility] Start: 1990 Sex Assigned At Female F [facility] How hard is it for y ou to pay for the very basics like food, housing, medical care, and heating Not very hard [facility] Work Phone: Start: 03-02-2023 Sexual orientation Heterosexual (graham rosado) [facility] Work Phone: Tobacco [facility] Comment on above: denies Tobacco smoking status No Smokin g Status Entered [facility] Do you feel stress - tense, restless, nervous, or anxious, or unable to sleep at night because your mind is troubled all the time - these days [OSQ] Rather much [facility] Work Phone: NEGATED: Highlighted row [facility] Medical Equipment Procedure Code Equipment Code Equipment Origin al Text Equipment Identifier Dates Fibertak Hip Yoanna f [employer] [place] 1.8mm [id number] Start: 07-10-2021 Fibertak Hip Yoanna f [employer] [place] 1.8mm [id number] Start: 07-10-2021 Fibertak Hip Yoanna f [employer] [place] 1.8mm [id number] Start: 07-10-2021 Fibertak Hip Yoanna f [employer] [place] 1.8mm [id number] Start: 07-10-2021 Membrane, Sepraf ilm, 5 X 6 In - [id number] Start: 03-05-2023 One touch Verio strips for One Touch Verio meter; test 4 times a day [id number] Start: 01-16-2019 End: 03-10-2023 Functional Status Date Assessment Result Facility 07-17-2023 Functional status Patient at Baseline [facility] Work Phone: 05-17-2023 Functional Status N/A [facility] 05-12-2023 Functional Status No [facility] 05-12-2023 Functional Status [facility] 05-11-2023 Functional Status N/A [facility] 05-09-2023 Functional Status N/A [facility] 05-06-2023 Functional Status N/A [facility] 04-02-2023 Functional Status N/A [facility] 03-16-2023 Functional Status N/A [facility] 03-15-2023 Functional Status N/A [facility] 12-31-2022 Functional Status N/A [facility] 10-20-2022 Functional Status N/A [facility] 10-19-2022 Functional Status N/A [facility] 07-29-2022 Functional Status N/A [facility] 06-10-2022 Functional Status N/A [facility] Mental Status Date Assessment Result Facility 07-17-2023 Cognitive function Cognitive Sta tus Patient at Baseline [facility] Work Phone: Clinical Notes 07-09-2019 to 08-12-2023 [...] have family/friend present for procedure transport home:Patient/patient community representative was told that if they do [...] area. Any barriers to Patient learning: Patient/Patient Property Accountant responded appropriately on phone. Type of instruction given: Verbal by telephone contact. Radha Osman MA [facility] 08-12-2023 Miscellaneous Notes GI Pre-Procedure Spoke with patient: Yes Confirmed date scheduled and patient report time: Yes Procedure Planned:Huerta insert Esophagogastroduodenoscopy(EGD) for control of bleeding,dilation(any means),imaging,tube placement Is the patient on blood thinners?no Procedure Instructions given to patient: Yes, and they verbalized their understanding of instructions given Patient instructed to have family/friend present for procedure transport home:Patient/patient community representative was told that if they do [...] area. Any barriers to Patient learning: Patient/Patient Property Accountant responded appropriately on phone. Type of instruction given: Verbal by telephone contact. Radha Osman MA documented in this encounter [facility] 08-09-2023 History of Presen t illness Narrative Images from the original note were not included. SUBJECTIVE: The patient presents to [facility] Pain Management Department for a follow-up [...] OARRS report reviewed by the physician Ms. Jose Campos & was told that medications will not [...] with ketamine nasal spray. Her usual pharmacy [facility] is out of stock on this x 1 week so I did make some suggestions re: Kadi vs. different [facility] location vs. [facility] online to try She previously tried gabapentin, elavil in the past (some small benefit) but had elevated QT She is patient of Dr. Magaña s/p MAL katharine with some benefit. She is mostly interested [...] spray continued (problem with in stock at [facility]) Return to clinic (in-person office visit or virtual visit/telemedicine) after all above completed fully. I spent a total of 25 minutes on the date of the service which included: *preparing to see the patient *lnjf-kq-jadv patient care *completing clinical documentation *obtaining and/or [...] August 05, 2023 documented in this encounter [facility] 08-09-2023 Note [facility] 08-06-2023 Note [facility] 08-06-2023 Note HNO ID: [id number] Author: MARIA TERESA MURILLO MD Service: Hospital Medicine Author Type: Physician Type: Plan of Care Filed: 08/06/2023 11:50 Note Text: To review with pulmonology [facility] 08-05-2023 Note [facility] 08-05-2023 Telephone encounter Note Requested Prescriptions Pending Prescriptions Disp Refills ketamine 5% nasal spray solution (CPD) 12 mL 0 Si.1 mL/spray. Use as directed. 1 spray by nose twice per day x 3 days, then increase to 2 sprays by nose twice per day if tolerated. Added volume to account for dispenser loss. Physician office visit required for refill. [facility] 08-05-2023 Miscellaneous Notes Requested Prescriptions Pending Prescriptions Disp Refills ketamine 5% nasal spray solution (CPD) 12 mL 0 Si.1 mL/spray. Use as directed. 1 spray by nose twice per day x 3 days, then increase to 2 sprays by nose twice per day if tolerated. Added volume to account for dispenser loss. Physician office visit required for refill. documented in this encounter [facility] 08-05-2023 Note [facility] 08-04-2023 Note [facility] 08-04-2023 Note [facility] 08-04-2023 Note [facility] 08-04-2023 Telephone encounter Note Lucie from [facility] pharmacy calling regarding RX just sent in for Ketamine. He states that is not something they have or can help with at [facility]. States maybe a compounding pharmacy. So RX unavailable. [facility] 08-04-2023 Miscellaneous Notes Lucie from [facility] pharmacy calling regarding RX just sent in for Ketamine. He states that is not something they have or can help with at [facility]. States maybe a compounding pharmacy. So RX unavailable. documented in this encounter [facility] 08-04-2023 History of Presen t illness Narrative Follow up Visit Patient Name: Abbey Garcia MR #: [id number] Age: [age] year old Date: August 03, [...] SD worse than population and warrants attention Electrical Controls Designer:Nathalie Reed MA The patient is a 33-year-old [...] a soft abdomen. Patient has remarkable tenderness Pima to palpation even for very light palpation [...] her next visit documented in this encounter [facility] 08-04-2023 Note [facility] 07-20-2023 Note [facility] 07-19-2023 Note [facility] 07-18-2023 Note [facility] 07-17-2023 Consult note Note Date/Time July 17, 2023 1:56p m [facility] [address] [place] [address] General Surgery Consult Note Signed Patient: Abbey Garcia MR#: [id number] : 1990 Acct:[id number] Age/Sex: 33 / F Adm Date: 4 Loc: 4N Room: [address] [place] [address] Type: ADM IN Attending Dr: Camden Rodriguez DO Copies to: MD Thomas Jordan MD Yazid Hussein, DO~ History of Present Illness Date of consult: 07/17/2023 Requesting/Attending Provider: Camden Rodriguez DO History of present illness: The patient is a 33-year-old female admitted with nausea and vomiting. Patient had Tan-en-Y gastric bypass procedure done 2021 at [facility]. In 2020, she had had a gastric [...] scheduled to have a procedure done at [facility] in the near future. CT scan here showed:IMPRESSION: Fluid-filled distal small bowel loops without gross distention. Developing small bowel obstruction cannot be excluded Currently, patient has some nausea and some upper abdominal discomfort.. Review of Systems Constitutional Constitutional: Denies fever(s) Cardiovascular Cardiovascular: Denies chest pain Respiratory Respiratory: Denies dyspnea Gastrointestinal Gastrointestinal: Reports abdominal pain, Reports nausea and Reports vomiting [facility] Medical History Encounter for PEG (percutaneous endoscopic gastrostomy) Median arcuate ligament syndrome Spleen enlarged Problem List clean-up per request of Phys. EHR Cmte Liver cyst Problem List clean-up per request of Phys. EHR Cmte Anxiety Problem List clean-up per request of Phys. [facility] Depression Problem List clean-up per request of Phys. [facility] PCOS (polycystic ovarian syndrome) Problem List clean-up per request of Phys. [facility] Hypothyroid Problem List clean-up per request of Phys. [facility] Surgical History History of gastric bypass 01/2022 History of appendectomy Problem List clean-up per request of Phys. [facility] Family History Father Hypothyroidism Mother Family history of mental disorder [facility]am[facility]x Problem: Diagnosed with Mental Illness Hypertension Diabetes [...] 15 Mg Tablet) 15 mg PO TID [facility] Stop: 07/16/24 13:59 Dextrose (Dextrose 50% In Water 25 Gm/50 Ml Syringe) 0 gm IV-PUSH PRN PRN PRN Reason: Hypoglycemia Stop: 07/16/24 11:08 Enoxaparin Sodium (Enoxaparin 40 Mg/0.4 Ml Syringe) 40 mg SUBCUT DAILY@10 TANIA Stop: 07/16/24 09:59 Last Admin: 07/17/23 11:23 Dose: 40 mg Escitalopram Oxalate (Escitalopram 20 Mg Tablet) 20 mg PO DAILY [facility] Stop: 07/16/24 08:59 Last Admin: 07/17/23 11:21 Dose: 20 mg Glucose (Dextrose 40% Gel 15 Gm Tube) 0 gm PO PRN PRN PRN Reason: Hypoglycemia Stop: 07/16/24 11:08 Sodium Chloride (0.9% Sodium Chloride 1,000 Ml) 1,000 mls @ 100 mls/hr IV .[id number] Stop: 07/18/24 08:59 Potassium Chloride 20 meq/ [...] 1,512.2 mls @ 63.008 mls/hr IV DAILY@1800 [facility]; Protocol Stop: 07/16/24 17:59 Fat Emulsion Intravenous 250 (ml/ IV Miscellaneous Supplies) 250 mls @ 21 mls/hr IV MOWEFR@1800 [facility] Stop: 07/18/24 17:59 Levothyroxine Sodium (Levothyroxine 75 Mcg Tablet) 75 mcg PO DAILY@0630 [facility] Stop: 07/17/24 06:29 Liothyronine Sodium (Liothyronine 5 Mcg Tablet) 5 mcg PO DAILY [facility] Stop: 07/16/24 08:59 Last Admin: 07/17/23 11:21 Dose: 5 mcg Methocarbamol (Methocarbamol 500 Mg Tablet) 500 mg PO BID [facility] Stop: 07/16/24 08:59 Last Admin: 07/17/23 11:21 Dose: 500 mg Metoclopramide HCl (Metoclopramide 10 Mg Tablet) 10 mg PO TID.AC [facility] Stop: 07/16/24 11:29 Last Admin: 07/17/23 11:21 Dose: 10 mg Mirtazapine (Mirtazapine 30 Mg Tablet) 30 mg PO HS [facility] Stop: 07/16/24 21:59 Morphine Sulfate (Morphine Sulfate [...] 40 Mg Vial) 40 mg IV-PUSH DAILY [facility] Stop: 07/16/24 08:59 Last Admin: 07/17/23 11:22 Dose: 40 mg Polyethylene Glycol (Polyethylene Glycol 3350 17 Gm Powd.Pack) 17 gm PO BID PRN PRN Reason: constipation Stop: 07/16/24 09:07 Prednisone (Prednisone 5 Mg Tablet) 5 mg PO DAILY [facility] Stop: 07/17/24 08:59 Sodium Chloride (Sodium Chloride [...] Appearance Clear, Urine pH 7.5, Ur Specific [place] 1.006, Urine Protein Negative, Urine Glucose (UA) [...] % (Auto) 75.6, Lymph % (Auto) 18.7, [place] % (Auto) 4.5, Eos % (Auto) 0.5, Baso % (Auto) 0.7, Nucleat RBC Rel Count 0.0, Neut # (Auto) 5.2, Lymph # (Auto) 1.3, [place] # (Auto) 0.3, Eos # (Auto) 0.0, [...] being actively seen by her surgeon at [facility] for her GI issues status post gastric bypass surgery. Transfer to [facility] is pending. Patient currently does not have [...] signed by MD Keven Kimbrough> 07/17/23 1401 [facility] Work Phone: 1(552) 349-925906-01-2024 History and physical note Author Camden Rodriguez [facility] July 17, 2023 11:19am Note Date/Time July 17, 2023 11:19 am [facility] [address] [place] [address] Hospitalist H&P Signed Patient: Abbey Garcia MR#: [id number] : 1990 Acct:[id number] Age/Sex: 33 / F Adm Date: 4 Loc: 4N Room: 5K4538-1 Type: ADM IN Attending Dr: Camden Rodriguez DO Copies to: MD Camden Badillo, ~ HPI DATE OF EXAMINATION: 07/17/23 CHIEF COMPLAINT: [...] negative unless noted below or in HPI [facility] Medical History Encounter for PEG (percutaneous endoscopic [...] List clean-up per request of Phys. [facility] Surgical History History of gastric bypass 01/2022 History of appendectomy Problem List clean-up per request of Phys. EHR Cmte Family History Father Hypothyroidism Mother Family history of mental disorder Legacy FamHx Problem: Diagnosed with Mental Illness Hypertension Diabetes [...] % (Auto) 18.7 % (.) 07/16/23 15:10 [place] % (Auto) 4.5 % (.) 07/16/23 15:10 Eos % (Auto) 0.5 % (.) 07/16/23 15:10 Baso % (Auto) 0.7 % (.) 07/16/23 15:10 Nucleat RBC Rel Count 0.0 /100 WBC (0-0.5) 07/16/23 15:10 Neut # (Auto) 5.2 x10E3/uL (1.8-7.7) 07/16/23 15:10 Lymph # (Auto) 1.3 x10E3/uL (1.00-4.8) 07/16/23 15:10 [place] # (Auto) 0.3 x10E3/uL (0.0-0.8) 07/16/23 15:10 [...] pH 7.5 (5.0-9.0) 07/16/23 15:21 Ur Specific [place] 1.006 (1.001-1.030) 07/16/23 15:21 Urine Protein Negative [...] signed by Camden Rodriguez DO> 07/17/23 1119 [facility] Work Phone: 1(838) 651-394905-30-2024 [facility] Telephone encounter Note* Telephone Encounter - Natalie [...] have family/friend present for procedure transport home:Patient/patient community representative was told that if they do [...] area. Any barriers to Patient learning: Patient/Patient Property Accountant responded appropriately on phone. Type of instruction given: Verbal by telephone contact. Natalie Alarcon LPN [facility]05-28-2024 Miscellaneous Notes* Telephone Encounter - Natalie [...] have family/friend present for procedure transport home:Patient/patient community representative was told that if they do [...] area. Any barriers to Patient learning: Patient/Patient Property Accountant responded appropriately on phone. Type of instruction given: Verbal by telephone contact. Natalie Alarcon LPN [facility] Note [id number] 07-09-2023 NoteHNO ID: [id number] Author: PABLO LEBRON PSYD Service: ? Author [...] exercise, positive self-talk). Sources of support (, sveksl-ej-kgf, brothers, grandfather). OBJECTIVE: Utilized cognitive behavioral and [...] positive self-talk) and sources of support (, xeadcv-qz-faq, brothers, grandfather). Pt requests to end session early due to childcare needs. DIAGNOSIS: PRIMARY: 1: Depression, Controlled Generalized Anxiety Disorder Situational Stress PROVISIONAL: Unspecified trauma and stressor related disorder TREATMENT MODALITIES: Cognitive Behavioral Therapy to behavior modifications, cognitive restructuring, self monitoring and increasing pleasurable activities, Solution Focused Psychotherapy, Supportive Therapy PROGRESS TO DATE: Assisted Progress: Stable Short Term Condition: Stable GOALS/OBJECTIVES/INTERVENTIONS: To identify and implement tools for effectively managing symptoms of anxiety, stress, and low mood. Approximately 15 minutes were spent with the patient doing therapy. Pablo Lebron [facility] History of Present illness Narrative* Pablo Lebron [facility] - 07/09/2023 8:57 AM EDT Assessment was [...] exercise, positive self-talk). Sources of support (, [id number], brothers, grandfather). OBJECTIVE: Utilized cognitive behavioral and [...] positive self-talk) and sources of support (, yezvmx-fi-lnp, brothers, grandfather). Pt requests to end session early due to childcare needs. 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 Approximately 15 minutes were spent with the patient doing therapy. Pablo Lebron PsyD [facility]24 [facility] Nurse Note* Rosanna Blanco OCCA - 07/06/2023 1:55 PM EDT Post Void Residual done on patient with 8 cc residual volume remaining. notified. ALLISON Schreiber [facility]05-21-2024 Nurse Note* Rosanna Blanco OCCA - 07/06/2023 1:55 PM EDT Post Void Residual done on patient with 8 cc residual volume remaining. notified. ALLISON Schreiber documented [facility] History of Present illness Narrative* Francisco J Steve MD - 07/06/2023 1:40 PM EDT [facility] PELVIC MEDICINE AND RECONSTRUCTIVE SURGERY PATIENT HISTORY AND PHYSICAL EXAM PATIENT INFO: Abbey Garcia is a 33 year old female. REFERRING M.D.: Marcos Moreno [address] [place] [address] [place] [address] Moreno for an [...] having recent UTI, that was treated at [facility] (although no records seen of this) and that she required a long catheter for two weeks due to high amounts in her bladder. No recent dysuria or hematuria. Does endorse some left flank pain. History of three C-sections, no vaginal deliveries QUESTIONNAIRE: Questionnaire: [facility] Ambulatory Visit Intake Questionnaire Question Answer [...] information you will be given? No Questionnaire: [facility] [place] [facility] Additional Demo Question Answer Is this visit related to an accident, other than Workers' Compensation? No Is this visit related to Workers' Compensation? No Do you need an apartment community assistant manager? No Questionnaire: [facility] Female Pelvic Medicine Base Question Answer [...] provider understand my health Strongly Agree Questionnaire: Myc Document/Image Upload Question Answer Photo ID If [...] (Non-Steroidal Anti-Inflammatory Drug) PHYSICAL EXAM: VITAL SIGNS: [facility] 08/19/2020 PHYSICAL EXAM General: Patient in no [...] for her OAB, and instructed her to garbage pick up man and use whicheveris cheapest at the pharmacy. [...] Level: 4 - Moderate documented in [facility] encounterCore[facility]05-21-2024 [facility] Nurse Note* Tory Mcmullen RN - 07/03/2023 2:27 PM EDT Reviewed discharge with patient, all questions answered, aware of appointments ride downstairs. Pegfeedings stopped and flushed prior to clamping. Patient TPN stopped PICC flushed patient to leave with PICC [facility]05-18-2024 Nurse Note* Tory Mcmullen RN [...] lumen picc, per patient was placed at [facility] about a month ago for TPN [...] tip placement is needed. RN to message * Mayda Balbuena LPN - 07/01/2023 2:30 AM EDT Pt alert and oriented, long intact, clear yellow urine , medicated twice for left epigastric pain with somewhat effect, TPN running at 83ml/hr, tolerating well, no sign of adverse reaction, pt remain NPO , sips with meds, pt in no acute distress, all safety measures in place, call light within reach. documented in this [facility] Work Phone: 1(293) 787-332605-18-2024 Nurse Note* Tory Mcmullen RN - 07/03/2023 2:11 PM EDT Long removed per orders, discharge prepared at this time. [facility] Work Phone: 1(152) 353-127205-18-2024 History of Present illness Narrative* Dolores Cox MD - 07/03/2023 12:22 PM EDT Abbey Garcia is a 33 y.o. female on day 3 of admission presenting with Epigastric pain. Subjective She presented to the hospital with abdominal pain. She had previously undergone laparoscopic sleeve gastrectomy, on 09/03/2020 at [facility]. She has a gastrojejunostomy tube. She states [...] medication and antiemetic. Follow up at the [facility] for intestinal rehab. Dolores Cox MD * Fadumo Edge RDN, LD - 07/02/2023 2:23 PM EDT Nutrition Progress Note messaged me for tube feed recommendations. Pt is now receiving tube feed and TPN. Nutrition Interventions and Recommendations: Nutrition Prescription: Individualized Nutrition Prescription Provided for : 4020-0105 kcals, 59-71 gm protein via parentaland enteral [...] home. Patient was active with RN from [facility] prior to admission. Patient would like to continue with their services post discharge. External referral already placed and sent to [facility]. [facility] will need to be notified via [facility]Port at the time of discharge. Will follow. 07/02/23 1049 Discharge Planning Home or Post Acute Services In home services Type of Home Care Services Home nursing visits Patient expects to be discharged to: Home with [facility] Does the patient need discharge transport arranged? [...] line position verification COMPARISON: 03/17/2023 ACCESSION NUMBER(S): [id number] ORDERING CLINICIAN: DOLORES COX TECHNIQUE: Single AP view chest FINDINGS: Cardiomediastinal silhouette is within normal limits. Right-sided PICC line identified with tip in the region of the mid SVC. No infiltrate or effusion is identified. Visualized osseous structures unremarkable. Impression: 1. Right PICC line placement with tip in the mid SVC. 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 Report Amended Report Amended By: [id number] Sherry Magaña MD Date and Time: 06/30/2023 at [...] PSV 89 cm/s KEELY PSV 105 cm/s [id number] Sherry [place] [id number] Magaña MD Electronically Amended 06/30/2023, 12:15 PM [...] patient follow up with Dr. Morel at [facility] for intestinal rehab Start trickle TF today Continue TPN Stop tramadol, switch to percocet as patient has been on this in the past Continue IV morphine for breakthrough pain Zofran PRN Asthma Stable, not in exacerbation HTN Stable Hypothyroidism Continue home synthroid GERD Continue PPI Dispo: if patient is tolerating TF and symptoms are improved tomorrow, will plan to discharge home with [facility]. Kina Ann MD * Shelley Nash, SUPPORT SERVICES REP-LABEL FOLDER - 07/01/2023 2:37 PM EDT Abbey Garcia [...] GI rehab program as previously recommended at [facility]. GS will sign off. I spent 15 minutes in the professional and overall care of this patient. JAMA Greenberg * Zoey Blanco RN - 07/01/2023 12:50 PM EDT Patient not medically clear. TCC met with patient to discuss discharge plans. Patient active with [facility] and would like to continue with RN only. External referral [facility]. Will follow. 07/01/23 1250 Discharge Planning Home or Post Acute Services In home services Type of Home Care Services Home nursing visits Patient expects to be discharged to: Home with [facility] Does the patient need discharge transport arranged? No Patient Choice Provider Choice list and CMS website (https://medicare.gov/care-compare#search) for post-acute Quality and Resource Measure Data were provided and reviewed with: Patient Patient / Family choosing to utilize agency / facility established prior to hospitalization Yes * JAMA Lynn - 07/01/2023 11:49 AM EDT Abbey M. Jose is a 33 y.o. female on day [...] 75 mL/hr, Last Rate: 75 mL/hr (07/01/23 2834) PRN medications PRN medications: acetaminophen OR acetaminophen, albuterol, alteplase, dextrose, dextrose, glucagon, glucagon, hydrOXYzine HCL, ondansetron, sodium chloride 0.9%, traMADol Vascular US mesenteric artery duplex complete Result Date: 07/01/2023 [place] [address] Vascular Lab Report [facility] US MESENTERIC ARTERY DUPLEX COMPLETE Patient Name: ABBEY Oneil Physician: [id number] Magaña MD Study Date: 06/30/2023 Ordering Provider: [id number] JAMIL GAVIN MRN/PID: [id number] Fellow: Technologist: Leia Degroot RVT Date of /Age: 2 1990 / 33 years Technologist 2: Gender: F Admission Status: Inpatient Location Performed: [facility] 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 Report Amended Report Amended By: [id number] Sherry Magaña MD Date and Time: 06/30/2023 at [...] PSV 89 cm/s KEELY PSV 105 cm/s [id number] Sherry Magaña [place] [id number] Magaña MD Electronically Amended 06/30/2023, 12:15 PM [...] Audie Gutierrez 06/30/2023 12:06 PM Dictation workstation: [id number] CT abdomen pelvis wo IV contrast Result Date: 06/29/2023 Interpreted By: Fly West, STUDY: CT ABDOMEN PELVIS WO IV CONTRAST; 06/29/2023 11:09 pm INDICATION: Signs/Symptoms:Abdominal pain. COMPARISON: 03/16/2023 ACCESSION NUMBER(S): [id number] ORDERING CLINICIAN: DAVID VALADEZ TECHNIQUE: Axial CT [...] non-dilated. Urinary bladder is decompressed, limiting evaluation. Olng catheter in place. REPRODUCTIVE: Status post hysterectomy. [...] [place] 06/29/2023 11:53 PM Dictation workstation: [id number] CT abdomen pelvis w IV contrast Result [...] Trace ascites, also present on previous exams Reinforcing Rod Layer: [facility] Transcribe Date/Time: Jun 18 2023 3:00P Dictated by : KYLE HERNANDEZ MD This examination was interpreted and the report reviewed and electronically signed by: KYLE HERNANDEZ MD on Jun 18 2023 3:30PM EST CT abdomen pelvis w IV contrast Result Date: 06/06/2023 * * *Final Report* * * DATE OF EXAM: Jun 06 2023 5:47PM [facility] 0530 - CT ABD/PEL W IVCON / [...] PROCESS. NO SIGNIFICANT INTERVAL CHANGE SINCE 12/06/2022. Reinforcing Rod Layer: [facility] Transcribe Date/Time: Jun 06 2023 7:08P Dictated [...] vascular cause. Recommend following up with the [facility] for intestinal rehab as recommended by her [...] laparoscopic sleeve gastrectomy, on 09/03/2020 at the [facility]. She has a gastrojejunostomy tube. She states [...] Yes Values/Beliefs Spiritual Requests During Hospitalization: Shikha JEFFERSO Keesha Jack * Shanique Bradford RN - 06/30/2023 4:43 PM EDT 06/30/23 1643 Current Planned Discharge Disposition Current Planned Discharge [...] RN - 06/30/2023 4:41 PM EDT 06/30/23 7102 Physical Activity On average, how many days [...] How often do you attend restorationist or jain services? More than 4 Do you belong [...] In the past 12 months has the [employer], gas, oil, or water [employer] threatened to shut off services in your [...] laparoscopic sleeve gastrectomy, on 09/03/2020 at the [facility]. She had a gastrojejunostomy tube. She states [...] for Epigastric pain. Pharmacy reviewed the patient's tapoh-jz-ujpdujypl medications and allergies for accuracy. Medications ADDED: Methocarbamol 750 mg TID Medications CHANGED: Buspirone 10 mg Mirtazapine 30 mg Miralax Topiramate 100 mg Medications REMOVED: Diazepam 5 mg Percocet 5 mg/325 mg The list below reflects the updated MANAGER TRAINING AND DEVELOPMENT list. Comments regarding how patient may be [...] Low Nausea/vomiting Pharmacy has been updated to [facility] [employer]. Sources used to complete the med history include patient interview, MANAGER TRAINING AND DEVELOPMENT list, dispense history Below are additional concerns with the patient's MANAGER TRAINING AND DEVELOPMENT list. -Pt is no longer taking diazepam or Percocet -Added methocarbamol 750 mg TID -Buspirone, mirtazapine, Miralax and topiramate doses have changed Mariela Tesfaye PharmD Please reach out via [employer] Secure Chat for questions * Sherry Magaña [...] Dr. Deacon Kat, her general surgeon at [facility]. The plan from them is a referralto [facility] intestinal rehabilitation. Patient to follow up with Dr. Kats office. 06/30/23 at 8:28 AM - Sherry Magaña MD Addendum: There is conclusively no vascular etiology for patient's current pain syndrome. Needs to be referred ultimately to Dr. Deacon Kat and Intestinal Rehab unit at [facility] after stabilization. Duplex shows no compression of celiac axis or internal lesions. There is no stenosis of the celiac axis or SMA. CTA reviewed. No vascular compression documented in this [facility] Work Phone: 1(862) 249-745205-18-2024 Plan of care note* Care Plan - [...] skin healing Outcome: Progressing Flowsheets (Taken 07/03/2023 1056) Promote skin healing: Turn/reposition every 2 hours/use [...] monitored and maintained or improved Outcome: Progressing [facility] Work Phone: 1(781) 487-282305-18-2024 Miscellaneous Notes* Care Plan - Tory Mcmullen [...] skin healing Outcome: Progressing Flowsheets (Taken 07/03/2023 1056) Promote skin healing: Turn/reposition every 2 hours/use [...] maintained or improved Outcome: Progressing * Care Mallory - Grecia Schaffer RN - 07/02/2023 11:42 [...] no hearing aids. Her PCP is [facility]; and [facility] [address] in [facility]. She has a hx of gastric bypass, c/o abd pain. No anticipated discharge needs. DISCHARGE PLAN: HOME WITH documented in this [facility] Work Phone: [phone]) 648-371605-18-2024 Nurse Note* Tory Mcmullen RN - 07/03/2023 8:16 AM EDT Assumed care of patient at this time, patient is resting in bed with brake in place and call light in reach denies any needs [facility] Work Phone: [phone] 534-599605-18-2024 Nurse Note* Grecia Schaffer RN - 07/03/2023 6:49 AM EDT Chg bath performed by this nurse. Gown and linens changed. Pt ambulated to the bathroom, pt reportsliquid dark, black stool ( not witnessed by nurse). [facility]05-17-2024 Plan of care note* Care Plan [...] did make progress toward the following goals. [facility] Work Phone: [phone] 600-594905-17-2024 Nurse Note* Yue Ferris RN - 07/02/2023 12:00 PM EDT Upon rounding right upper arm dual lumen PICC with current CHG dressing dry and intact. One port inuse, one with brisk blood return and flushes easily, clamped and Curos cap intact. [facility]05-16-2024 Plan of care note* Care Plan - [...] monitored and maintained or improved Outcome: Progressing [facility]05-16-2024 Nurse Note* Edilia Darby RN - 07/01/2023 1:56 PM EDT CXR from today verifies picc tip in mid SVC. [facility]05-16-2024 Nurse Note* Edilia Darby RN - 07/01/2023 12:48 PM EDT Patient with Rt arm dual lumen picc, per patient was placed at [facility] about a month ago for TPN [...] placement is needed. RN to jose Young [facility] Work Phone: [phone]) 769-947105-16-2024 Consult note* Fadumo Edge RDN, LD - [...] renal failure superimposed on chronic kidney disease ([facility]) 06/29/2023 Anxiety Arthritis Asthma ([facility]) CPAP (continuous positive airway pressure) dependence Depression Disease of thyroid gland Dizziness GERD (gastroesophageal reflux disease) Hypothyroidism Irritable bowel syndrome with constipation Median arcuate ligament syndrome ([facility]) PCOS (polycystic ovarian syndrome) PONV (postoperative nausea [...] 75 mL/hr, Last Rate: 75 mL/hr (07/01/23 6604) Dietary Orders (From admission, onward) Start Ordered 06/30/231747 May Participate in Room Service Once Question: . Answer: Yes 06/30/23174706/30/23 022 NPO Diet Except: Sips with meds; Effective now Diet effective now Question: Except: Answer: Sips with meds 06/30/23 0230 Nutrition Support Intake provides: 1420 kcals, 100 gm protein, 2000 mL total volume Estimated Needs: Estimated Energy Needs Total Energy Estimated Needs (kCal): (2987-3366) Total Estimated Energy Need per Day (kCal/kg): (25-30) Method for Estimating Needs: ABW Estimated Protein Needs Total Protein Estimated Needs (g): (59-71) Total Protein Estimated Needs (g/kg): (1-1.2) Method for Estimating Needs: ABW Estimated Fluid Needs Total Fluid Estimated Needs (mL): (9435-2567) Method for Estimating Needs: 1 mL/kcal Nutrition Diagnosis Nutrition Diagnosis: Nutrition Diagnosis Patient has Nutrition Diagnosis: Yes Diagnosis Status (1): New Nutrition Diagnosis 1: Altered GI function Related to (1): physiological causes As Evidenced by (1): need for TPN, cannot tolerate PO/ tube feed Nutrition Interventions/Recommendations Nutrition Interventions and Recommendations: Nutrition Prescription: Individualized Nutrition Prescription Provided for : 2895-5818 kcals, 59-71 gm protein via parentalnutrition Nutrition [...] Needed?: 3-5 days Follow up Comment: 07/05/23 [facility] Work Phone: [phone] Consult note* Fadumo Edge RDN, LD - [...] renal failure superimposed on chronic kidney disease ([facility]) 06/29/2023 Anxiety Arthritis Asthma ([facility]) CPAP (continuous positive airway pressure) dependence Depression [...] Energy Needs Total Energy Estimated Needs (kCal): (3195-6763) Total Estimated Energy Need per Day (kCal/kg): (25-30) Method for Estimating Needs: ABW Estimated Protein Needs Total Protein Estimated Needs (g): (59-71) Total Protein Estimated Needs (g/kg): (1-1.2) Method for Estimating Needs: ABW Estimated Fluid Needs Total Fluid Estimated Needs (mL): (0950-3833) Method for Estimating Needs: 1 mL/kcal Nutrition Diagnosis Nutrition Diagnosis: Nutrition Diagnosis Patient has Nutrition Diagnosis: Yes Diagnosis Status (1): New Nutrition Diagnosis 1: Altered GI function Related to (1): physiological causes As Evidenced by (1): need for TPN, cannot tolerate PO/ tube feed Nutrition Interventions/Recommendations Nutrition Interventions and Recommendations: Nutrition Prescription: Individualized Nutrition Prescription Provided for : 4748-2074 kcals, 59-71 gm protein via parentalnutrition Nutrition [...] for which she follows a surgeon at [facility]. They have been trying to advance her [...] renal failure superimposed on chronic kidney disease ([facility]) (06/29/2023), Anxiety, Arthritis, Asthma ([facility]), CPAP (continuous positive airway pressure) dependence, Depression, Disease of thyroid gland, Dizziness, GERD (gastroesophageal reflux disease), H ypothyroidism, Irritable bowel syndrome, Median arcuate ligament syndrome ([facility]), PCOS (polycystic ovarian syndrome), PONV (postoperative nausea and vomiting), PUD (peptic ulcer disease), and Shortness of breath. She has no past medical history of Autoimmune disorder ([facility]), Bipolar disorder (Multi), BPH (benign prostatic hyperplasia), Cerebral aneurysm ([facility]), Cervical cancer (Multi), Cervical disc disease, Chronic kidney disease, CKD (chronic kidney disease), Cognitive decline, Crohn's disease (Multi), Dementia (Multi), Dysphagia, Endometrial cancer (Multi), Esophageal cancer (Multi), Esophageal disease, ESRD (end stage renal disease) (Multi), Fibromyalgia, primary, Fractures, Gastric cancer (Multi), Gender dysphoria, GI (gastrointestinal bleed), Hemodialysis status ([facility]), Hernia, internal, H istory of peritoneal dialysis, HIV disease ([facility]), Immunocompromised (Multi), Liver disease, Lumbar disc disease, Mastocytosis, MS (multiple sclerosis) ([facility]), Muscular dystrophy (Multi), Myasthenia gravis (Multi), Neuromuscular disorder (Multi), Ovarian cancer (Multi), Pancreatitis ([facility]), Peptic ulcer disease, Prematurity ([facility]), PTSD (post-traumatic stress disorder), Schizophrenia (Multi), Seizure [...] Diabetes Paternal Grandmother Grandmother Asthma Brother Adán Artrichard Allergies Codeine and Nsaids (non-steroidal anti-inflammatory drug) [...] Yellow, Dark-Yellow Appearance, Urine Clear Clear Specific [place], Urine 1.023 1.005 - 1.035 pH, Urine [...] Audie Gutierrez 06/30/2023 12:06 PM Dictation workstation: [id number] Vascular US mesenteric artery duplex complete Result Date: 06/30/2023 Preliminary Cardiology Report [place] [id number] Preliminary Vascular Lab Report VASC US MESENTERIC ARTERY DUPLEX COMPLETE Patient Name: ABBEY Oneil Physician: [id number] Sherry Magaña MD Study Date: 06/30/2023 Ordering Provider: [id number] JAMIL GAVIN MRN/PID: [id number] Fellow: Technologist: Leia Degroot RVT Date of : 1990 Technologist 2: Gender: F Admission Status: Inpatient Location Performed: [facility] 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 COMPARISON: 03/16/2023 ACCESSION NUMBER(S): [id number] ORDERING CLINICIAN: DAVID VALADEZ TECHNIQUE: Axial CT [...] [place] 06/29/2023 11:53 PM Dictation workstation: [id number] Assessment/Plan Abdominal pain FTT 33-year-old female with complicated history after gastric bypass surgery. She has been working witha surgeon at [facility] to advance her tube feeds and oral intake and decrease the TPN, however this has been unsuccessful. She was evaluated by Dr. Magaña here and there is no evidence of celiac or SMA stenosis or compression. There is an intestinal rehabilitation program through [facility] and recommend follow-up with that program. Cont [...] nausea aftera gastric bypass surgery done at [facility] in which she has been hospitalized [...] BUN 14 06/30/2023 CREATININE 0.60 06/30/2023 * JAMA Judd - 06/30/2023 8:31 AM EDTAssociated Order(s): IP CONSULT TO VASCULAR SURGERY Reason for Consult Mid epigastric abdominal pain History Of Present Illness This is a 33-year-old female with past medical history of chronic abdominal pain, PCOS, PUD, depression, GERD, IBS, obesity (status post laparoscopic sleeve gastrectomy in August [address] Ku [id number] gastric bypass 01/29/[address] Kat) and median arcuate ligament syndrome who presented to the emergency department for further evaluation of mid epigastric abdominal pain and nausea. Jonh jose follows with GI and general surgery with the [facility] and is currently on TPN via J-tube [...] also spoke with her general surgeon at [facility] where patient was advised for referral to [facility] intestinal rehabilitation. Past Medical History Past Medical History: Diagnosis Date Acute renal failure superimposed on chronic kidney disease ([facility]) 06/29/2023 Anxiety Arthritis Asthma ([facility]) CPAP (continuous positive airway pressure) dependence Depression Dizziness GERD (gastroesophageal reflux disease) Hypothyroidism Irritable bowel syndrome with constipation Median arcuate ligament syndrome ([facility]) PCOS (polycystic ovarian syndrome) PONV (postoperative nausea [...] Insecurity: No Food Insecurity (06/07/2023) Received from [facility] Hunger Vital Sign Worried About Running Out of Food in the Last Year: Never true Ran Out of Food in the Last Year: Never true Transportation Needs: No Transportation Needs (06/07/2023) Received from [facility] PRAPARE - Transportation Lack of Transportation (Medical): No Lack of Transportation (Non-Medical): No Physical Activity: Insufficiently Active (10/28/2022) Received from [facility] Exercise Vital Sign Days of Exercise per Week: 4 days Minutes of Exercise per Session: 30 min Stress: Stress Concern Present (10/28/2022) Received from [facility] [employer] - Occupational Stress Questionnaire Feeling of Stress : To some extent Social Connections: Socially Integrated (10/28/2022) Received from [facility] Social Connection and Isolation Panel [NHANES] Frequency of Communication with Friends and Family: More than three times a week Frequency of Social Gatherings with Friends and Family: Once a week Attends Anabaptism Services: 1 to 4 times per year Active Member of Clubs or Organizations: Yes Attends Club or Organization Meetings: More than 4 times per year Marital Status: Intimate Partner Violence: Not on file Housing Stability: Low Risk (06/07/2023) Received from [facility] Housing Stability Vital Sign Unable to [...] Yellow, Dark-Yellow Appearance, Urine Clear Clear Specific [place], Urine 1.023 1.005 - 1.035 pH, Urine [...] INDICATION: Signs/Symptoms:Abdominal pain. COMPARISON: 03/16/2023 ACCESSION NUMBER(S): [id number] ORDERING CLINICIAN: DAVID VALADEZ TECHNIQUE: Axial CT [...] [place] 06/29/2023 11:53 PM Dictation workstation: [id number] Physical exam Constitutional: Alert and oriented to [...] for episodes of hypoglycemia documented in this [facility] Work Phone: 1([phone]) 831-692605-16-2024 Nurse Note* Mayda Balbuena LPN - 07/01/2023 2:30 AM EDT Pt alert and oriented, long intact, clear yellow urine , medicated twice for left epigastric pain with somewhat effect, TPN running at 83ml/hr, tolerating well, no sign of adverse reaction, pt remain NPO , sips with meds, pt in no acute distress, all safety measures in place, call light within reach. [facility]05-15-2024 Plan of care note* Care Plan - Mayda Balbuena LPN - 06/30/2023 10:12 PM EDT The patient's goals for the shift include feel better The clinical goals for the shift include pain control [facility] Work Phone: [phone] Consult note* Tomasa Ortiz MD - 06/30/2023 [...] for which she follows a surgeon at [facility]. They have been trying to advance her [...] renal failure superimposed on chronic kidney disease ([facility]) (06/29/2023), Anxiety, Arthritis, Asthma ([facility]), CPAP (continuous positive airway pressure) dependence, Depression, Disease of thyroid gland, Dizziness, GERD (gastroesophageal reflux disease), H ypothyroidism, Irritable bowel syndrome, Median arcuate ligament syndrome ([facility]), PCOS (polycystic ovarian syndrome), PONV (postoperative nausea and vomiting), PUD (peptic ulcer disease), and Shortness of breath. She has no past medical history of Autoimmune disorder (Multi), Bipolar disorder (Multi), BPH (benign prostatic hyperplasia), Cerebral aneurysm ([facility]), Cervical cancer (Multi), Cervical disc disease, Chronic kidney disease, CKD (chronic kidney disease), Cognitive decline, Crohn's disease (Multi), Dementia (Multi), Dysphagia, Endometrial cancer (Multi), Esophageal cancer (Multi), Esophageal disease, ESRD (end stage renal disease) (Multi), Fibromyalgia, primary, Fractures, Gastric cancer (Multi), Gender dysphoria, GI (gastrointestinal bleed), Hemodialysis status ([facility]), Hernia, internal, H istory of peritoneal dialysis, HIV disease ([facility]), Immunocompromised (Multi), Liver disease, Lumbar disc disease, Mastocytosis, MS (multiple sclerosis) ([facility]), Muscular dystrophy (Multi), Myasthenia gravis ([facility]), Neuromuscular disorder (Multi), Ovarian cancer ([facility]), Pancreatitis ([facility]), Peptic ulcer disease, Prematurity ([facility]), PTSD (post-traumatic stress disorder), Schizophrenia (Multi), Seizure disorder (Multi), Spinal stenosis, Substance addiction ([facility]), Syncope, TIA (transientischemic attack), Ulcerative colitis ([facility]), Urinary tract infection, Uterine cancer ([facility]), or Vertigo. Surgical History She has a [...] Paternal Grandfather Elan Artino Arthritis Paternal Grandfather Elna Artino Hypertension Paternal Grandfather Elan Artino Anesthesia [...] Yellow, Dark-Yellow Appearance, Urine Clear Clear Specific [place], Urine 1.023 1.005 - 1.035 pH, Urine [...] Audie Gutierrez 06/30/2023 12:06 PM Dictation workstation: [id number] Vascular US mesenteric artery duplex complete Result Date: 06/30/2023 [place] [address] Preliminary Vascular Lab Report [facility] US MESENTERIC ARTERY DUPLEX COMPLETE Patient Name: ABBEY Oneil Physician: [id number] Sherry Magaña MD Study Date: 06/30/2023 Ordering Provider: [id number] JAMIL GAVIN MRN/PID: [id number] Fellow: Technologist: Leia Degroot RVT Date of : 1990 Technologist 2: Gender: F Admission Status: Inpatient Location Performed: [facility] 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 COMPARISON: 03/16/2023 ACCESSION NUMBER(S): [id number] ORDERING CLINICIAN: DAVID VALADEZ TECHNIQUE: Axial CT [...] [place] 06/29/2023 11:53 PM Dictation workstation: [id number] Assessment/Plan Abdominal pain FTT 33-year-old female with complicated history after gastric bypass surgery. She has been working witha surgeon at [facility] to advance her tube feeds and oral intake and decrease the TPN, however this has been unsuccessful. She was evaluated by Dr. Magaña here and there is no evidence of celiac or SMA stenosis or compression. There is an intestinal rehabilitation program through [facility] and recommend follow-up with that program. Cont TPN for nutrition and PO/tube feeds as tolerated in the meantime Tomasa Ortiz MD [facility] Work Phone: [phone]) 507-714605-15-2024 Plan of care note* Care Plan - [...] no hearing aids. Her PCP is [facility]; and she uses [facility] [address] in [facility]. She has a hx of gastric bypass, c/o abd pain. No anticipated discharge needs. DISCHARGE PLAN: HOME WITH [facility] Work Phone: [phone] Consult note* JAMA Solis - 06/30/2023 11:27 [...] nausea aftera gastric bypass surgery done at [facility] in which she has been hospitalized [...] 06/30/2023 BUN 14 06/30/2023 CREATININE 0.60 06/30/2023 [facility] Work Phone: [phone] Consult note* Tiffanie Mendez, SUPPORT SERVICES REP-LABEL FOLDER - 06/30/2023 8:31 AM EDTAssociated Order(s): IP CONSULT TO VASCULAR SURGERY Reason for Consult Mid epigastric abdominal pain History Of Present Illness This is a 33-year-old female with past medical history of chronic abdominal pain, PCOS, PUD, depression, GERD, IBS, obesity (status post laparoscopic sleeve gastrectomy in August [address] Ku [id number]-D gastric bypass 01/29/[address] Kat) and median arcuate ligament syndrome who presented to the emergency department for further evaluation of mid epigastric abdominal pain and nausea. Jonh jose follows with GI and general surgery with the [facility] and is currently on TPN via J-tube [...] also spoke with her general surgeon at [facility] where patient was advised for referral to [facility] intestinal rehabilitation. Past Medical History Past Medical History: Diagnosis Date Acute renal failure superimposed on chronic kidney disease ([facility]) 06/29/2023 Anxiety Arthritis Asthma ([facility]) CPAP (continuous positive airway pressure) dependence Depression Dizziness GERD (gastroesophageal reflux disease) Hypothyroidism Irritable bowel syndrome with constipation Median arcuate ligament syndrome ([facility]) PCOS (polycystic ovarian syndrome) PONV (postoperative nausea [...] Insecurity: No Food Insecurity (06/07/2023) Received from [facility] Hunger Vital Sign Worried About Running Out of Food in the Last Year: Never true Ran Out of Food in the Last Year: Never true Transportation Needs: No Transportation Needs (06/07/2023) Received from [facility] PRAPARE - Transportation Lack of Transportation (Medical): No Lack of Transportation (Non-Medical): No Physical Activity: Insufficiently Active (10/28/2022) Received from [facility] Exercise Vital Sign Days of Exercise per Week: 4 days Minutes of Exercise per Session: 30 min Stress: Stress Concern Present (10/28/2022) Received from [facility] [employer] - Occupational Stress Questionnaire Feeling of Stress : To some extent Social Connections: Socially Integrated (10/28/2022) Received from [facility] Social Connection and Isolation Panel [NHANES] Frequency of Communication with Friends and Family: More than three times a week Frequency of Social Gatherings with Friends and Family: Once a week Attends Anabaptism Services: 1 to 4 times per year Active Member of Clubs or Organizations: Yes Attends Club or Organization Meetings: More than 4 times per year Marital Status: Intimate Partner Violence: Not on file Housing Stability: Low Risk (06/07/2023) Received from [facility] Housing Stability Vital Sign Unable to Pay for Housing in the Last Year: No Number of Places Lived in the Last Year: 1 Unstable Housing in the Last Year: No Family History Family History Problem Relation Name Age of Onset Diabetes Mother Jessica Artino Hypertension Mother Jessica Artino Cancer Maternal Grandfather Cedrick Efra COPD Maternal Grandfather Cedrick Kraus Heart disease Maternal Grandfather Cedrick Kraus Kidney disease Maternal Grandfather Cedrick Efra Hypertension Maternal Grandmother Grandpa Anesthesia problems Paternal Grandfather Elan Artino Arthritis Paternal Grandfather Elan Artino Hypertension Paternal Grandfather Elan Artino Anesthesia related problems Paternal Grandfather Elan Jeterino COPD Paternal Grandmother Grandmother Diabetes Paternal Grandmother [...] Yellow, Dark-Yellow Appearance, Urine Clear Clear Specific [place], Urine 1.023 1.005 - 1.035 pH, Urine [...] INDICATION: Signs/Symptoms:Abdominal pain. COMPARISON: 03/16/2023 ACCESSION NUMBER(S): [id number] ORDERING CLINICIAN: DAVID VALADEZ TECHNIQUE: Axial CT [...] [place] 06/29/2023 11:53 PM Dictation workstation: [id number] Physical exam Constitutional: Alert and oriented to [...] Needs further workup for episodes of hypoglycemia [facility] Work Phone: 1(853) 680-507405-15-2024 Emergency department Note* Carla Alejo LPN - 06/30/2023 6:43 AM EDT Patient in gown at this time no c/o pain or discomfort no needs made known at this time Patient sleeping, chest rises and falls at equal intervals and patient takes breaths. Responds verbaly to calling of name and acknowledges this nurses presence in room Carla Alejo LPN 06/30/[address] [facility]05-15-2024 Emergency department Note* Carla Alejo LPN - [...] lab Carla Alejo LPN 06/29/232057 * David Dykes Rory, - 06/29/2023 5:37 PM EDT HPI Chief [...] orchills. No chest pain. No other complaints. Kris Coma Scale Score: 15 Patient History Past Medical History: Diagnosis Date Acute renal failure superimposed on chronic kidney disease ([facility]) 06/29/2023 Anxiety Arthritis Asthma ([facility]) CPAP (continuous positive airway pressure) dependence Depression [...] interpretation: Sinus rhythm 59 bpm normal axis [place] interval 140 QTc 453 no ectopy or acute ischemic changes noted [KW] ED Course User Index [KW] David Valadez DO Diagnoses as of 05/15/24 0244 Epigastric pain Nausea and vomiting, unspecified vomiting [...] for admission. Procedure Procedures David Valadez DO 06/30/23 0244 * Carla Alejo LPN - 06/29/2023 5:37 PM EDT medications held at this time per ED physician verbal order Carla Alejo LPN 06/29/23 2312 documented in [address] [facility] Work Phone: 1(205) 188-637805-15-2024 Emergency department Note* Carla Alejo LPN - 06/30/2023 5:48 AM EDT Patient vitals taken, labs drawn and sent and patient medicated for pain , vitals taken and charted, no c/o discomfort or other needs at this time Carla Alejo LPN 06/30/[address] [facility] Work Phone: 1(471) 478-507005-15-2024 History and physical note* Baldomero Woodard MD - 06/30/2023 2:40 AM EDT History Of Present Illness Abbey Garcia is a 33 y.o. female presenting with 2-year history of abdominal pain and nausea after a gastric bypass surgery done at [facility] she has been hospitalized multiple times for this. She has a combination gastric tube jejunostomy tube which is supposed to be used for tube feeds she is on TPN. She has a surgeon at [facility] but she also sees Dr. Magaña [...] get her nausea under control with Reglan qvjxq-fbg-jjmtk will consult general surgery to help with this complicated acute on chronic situation will order subcu heparin IV Protonix will make sure her gastric tube in her J- tube gets flushed. 3 times a day will order most of her home meds the way she takes them at home either by mouth or for through the J-tube. Baldomero Woodard MD [facility] Work Phone: 1(630) 313-196105-15-2024 History and physical note* Baldomero Woodard MD - 06/30/2023 2:40 AM EDT History Of Present Illness Abbey Garcia is a 33 y.o. female presenting with 2-year history of abdominal pain and nausea after a gastric bypass surgery done at [facility] she has been hospitalized multiple times for this. She has a combination gastric tube jejunostomy tube which is supposed to be used for tube feeds she is on TPN. She has a surgeon at [facility] but she also sees Dr. Magaña [...] Diabetes Mother Jessica Jeterino Hypertension Mother Jessica Jeterino Cancer Maternal Grandfather [...] get her nausea under control with Reglan fnpab-bgi-wdahv will consult general surgery to help with this complicated acute on chronic situation will order subcu heparin IV Protonix will make sure her gastric tube in her J- tube gets flushed. 3 times a day will order most of her home meds the way she takes them at home either by mouth or for through the J-tube. Baldomero Woodard MD documented in [facility] Work Phone: 1(996) 426-166305-14-2024 Emergency department Note* Carla Alejo LPN - 06/29/2023 8:57 PM EDT Assumed care of patient , labs drawn originally while tpn was attached and running , blood glucose redone via fingerstick with result of 117 and cbc/bmp reordered STAT , drawn and sent to lab Carla Alejo LPN 06/29/232057 [facility] Work Phone: 1(921) 477-420305-14-2024 Emergency department Note* Carla Alejo LPN - 06/29/2023 5:37 PM EDT medications held at this time per ED physician verbal order Carla Alejo LPN 06/29/[address] [facility] Work Phone: 1(896) 135-937505-14-2024 Physician Emergency department Note* David Valadez DO - 06/29/2023 5:37 PM [...] orchills. No chest pain. No other complaints. Kris Coma Scale Score: 15 Patient History Past Medical History: Diagnosis Date Acute renal failure superimposed on chronic kidney disease ([facility]) 06/29/2023 Anxiety Arthritis Asthma ([facility]) CPAP (continuous positive airway pressure) dependence Depression Dizziness GERD (gastroesophageal reflux disease) Hypothyroidism Irritable bowel syndrome with constipation Median arcuate ligament syndrome ([facility]) PCOS (polycystic ovarian syndrome) PONV (postoperative nausea [...] Cedrick Efra Kidney disease Maternal Grandfather Cedrick Kraus Hypertension [...] interpretation: Sinus rhythm 59 bpm normal axis [place] interval 140 QTc 453 no ectopy or [...] admission. Procedure Procedures David Valadez DO 06/30/232[address] [facility] Work Phone: 1(641) 325-622105-07-2024 History of Present illness Narrative* Sherry Magaña MD - 06/22/2023 11:45 AM EDT Patient and I had a video conference as she was at home in [place] and I was at the [facility] vascular center. She reports doing poorly with bouts of [...] conference was 10 minutes documented in this [facility] Work Phone: 1(542) 436-504905-03-2024 Note [id number]#1.00TIFFFadan [facility] 06-18-2023 History of Present illness Narrative* Breanna Stern APRN.LABEL FOLDER - 06/18/2023 10:00 AM EDT Assessment Postoperative [...] tube LE's: No edema Impression and plan: Abbeylesia Garcia is a 33 year old yo [...] Kat Follow up with Dr Shey Stern APRN.LABEL FOLDER [facility] Nurse Note* Yaneth Mitchell MA - 06/18/2023 9:35 AM EDT What is the reason for your visit today? Post op PEG-J placement Who is your referring physician? Are you having poor oral intake? YES Have you had unintentional weight loss of 15 lbs/7 Kg in the last 3-6 months? NO Bowels: diarrhea Wound: Temperature: No Drains: No [facility]05-03-2024 Nurse Note* Yaneth Mitchell MA - 06/18/2023 9:35 AM EDT What is the reason for your visit today? Post op PEG-J placement Who is your referring physician? Are you having poor oral intake? YES Have you had unintentional weight loss of 15 lbs/7 Kg in the last 3-6 months? NO Bowels: diarrhea Wound: Temperature: No Drains: No documented in this encounterCorey [facility]05-02-2024 Telephone encounter Note * Telephone Encounter [...] with scheduling provider for ketamine refill appt. [facility]05-02-2024 Miscellaneous Notes* Telephone Encounter - Clarence Hargrove LPN - 06/17/2023 4:53 PM EDT Called patient aware / appt cancelled provider unavailable Patient aware ketamine spray is controlled medication office visit every 3 months (12 weeks) required. Patient states she has availability next week please call anytime for in person appt she is available after 12pm. Please assist patient with scheduling provider for ketamine refill appt. documented in this encounterCorey Hospital05-02-2024 Telephone encounter Note * Telephone Encounter - Serena Neff - 06/17/2023 11:40 AM EDT Phoned Malka back with Dr. Kat's response. He will not be managing patient's TPN. Malka advised that she arranged for hospitalist to manage. Serena Neff RN BSN Box Blank Machine Operator Helper for Dr. Kat [facility]05-02-2024 Miscellaneous Notes* Telephone Encounter - Serena Neff - 06/17/2023 11:40 AM EDT Phoned Malka back with Dr. Kat's response. He will not be managing patient's TPN. Malka advised that she arranged for hospitalist to manage. Serena Neff RN BSN Box Blank Machine Operator Helper for Dr. Kat * Telephone Encounter - Dorita Manning - 06/15/2023 3:20 PM EDT Malka from [facility] calling asking if Dr Kat will follow patient for TPN. Physician there is discharging patient on TPN. # [phone] ext [phone] documented in this encounterCorey Hospital04-30-2024 Telephone encounter Note * Telephone Encounter - Dorita Manning - 06/15/2023 3:20 PM EDT Malka from [facility] calling asking if Dr Kat will follow patient for TPN. Physician there is discharging patient on TPN. CB# [phone] ext [phone] [facility]04-30-2024 [id number]#1.00TIFF [facility]04-29-2024 Telephone encounter Note* Telephone Encounter - Stephanie Sumner DO - 06/14/2023 4:39 PM EDT Hospital Medicine Transfer Received page for transfer request from [facility] to [facility]: Abbey Garcia is 33 year old female who presented with nausea, vomiting and worsening LUQ pain. Pt has complicated gastric surgery history and is currently doing TF via PEG for nutrition. Per [place] [facility] pt is HDS and electrolytes are stable. Pt is requesting transfer to because that is where her care team is and states she only went to [place] ED because they have short wait times. ED team gave IVF and IV pain meds which improved LUQ pain somewhat. Pts notified Dr Kat that she was going to ED. Reason for transfer: continuity of care Accepted to hospital medicine service at [facility] Stephanie Sumner DO 4:39 PM [facility] Work Phone: 1(517) 829-600404-29-2024 Miscellaneous Notes* Telephone Encounter - Stephanie Sumner DO - 06/14/2023 4:39 PM EDT Hospital Medicine Transfer Received page for transfer request from [facility] to [facility]: Abbey M Jose is 33 year old female who presented with nausea, vomiting and worsening LUQ pain. Pt has complicated gastric surgery history and is currently doing TF via PEG for nutrition. Per [place] ED pt is HDS and electrolytes are stable. Pt is requesting transfer to because that is where her care team is and states she only went to [place] [facility] because they have short wait times. ED team gave IVF and IV pain meds which improved LUQ pain somewhat. Pts notified Dr Kat that she was going to ED. Reason for transfer: continuity of care Accepted to hospital medicine service at [facility] Stephanie Sumner DO 4:39 PM documented in this encounterCorey Hospital04-29-2024 Telephone encounter Note * Telephone Encounter - Serena Neff - 06/14/2023 3:31 PM EDT Phoned patient and to discuss ED admission today. Pt is being transferred from [facility] to [facility]. Patient complaining of worsening left sided [...] further questions at this time. Serena Neff PROPERTY WORKER Box Blank Machine Operator Helper for Dr. Kat [facility]04-29-2024 Miscellaneous Notes* Telephone Encounter - Serena Neff - 06/14/2023 3:31 PM EDT Phoned patient and to discuss ED admission today. Pt is being transferred from [facility] to [facility]. Patient complaining of worsening left sided [...] further questions at this time. Serena Neff PROPERTY WORKER Box Blank Machine Operator Helper for Dr. Kat documented in this encounterCorey Hospital04-26-2024 Note [id number]#1.00[facility] 06-09-2023 NoteHNO ID: [id number] Author: PABLO LEBRON PSYD Service: ? 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 Approximately 45 minutes were spent with the patient doing therapy. [facility] History of Present illness Narrative* Pablo Lebron, [facility] - 06/09/2023 8:59 AM EDT Assessment was conducted virtually. Patient is a resident of [place], and completed the assessment virtually in [place]. Psychologist is licensed and stationed in [place]. Informed consent was discussed and verbal assent was granted by the patient. GENERAL PSYCHOLOGY Session #: 4 (session count starts after [facility]) SUBJECTIVE: Major surgery February 2023 (difficult recovery; in and out of hospital due to malnutrition and dehydration, home health aid). Currently in hospital (difficulty with feeding tube) --- feeling better from med tx. 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 Approximately 45 minutes were spent with the patient doing therapy. Pablo Lebron PsyD documented in this encounterCorey Hospital04-23-2024 [facility] 06-07-2023 [facility] [id number] [facility]04-16-2024 [facility]04-16-2024 History of Present illness Narrative* Vic Ramos MD - 06/01/2023 4:28 PM EDT TELEMEDICINE VISIT Modified Protocol for treatment of other conditions supportive of goal to minimize vulnerable patient exposure to Covid-19 [facility] Emergency Consented for encounter Patient verified by name and Abbey Garcia [id number] 1990 Patient consents to virtual visit Patient located at home Dr. Ramos located at [facility] office SUBJECTIVE: The patient presents to [facility] for pain in [...] which included preparing to see the patient, dqop-ur-fnzj patient care, completing clinical documentation, obtaining and/or [...] MD June 01, 2023 documented in this encounterCorey Hospital04-15-2024 Note [id number]#1.00[facility] 05-30-2023 Miscellaneous Notes* Telephone Encounter - Deacon Kat MD - 05/30/2023 10:16 AM EDT Significant constipation - no bm since Wednesday, a lot of rectal pressure. Tried her linzess, miralax. Recommended enema OTC + dulcolax suppository. Contact me if not improved. Deacon aKt MD documented in this encounterCorey Hospital04-12-2024 Miscellaneous Notes* Telephone Encounter - Nabila Jackson RPh - 05/28/2023 5:48 PM EDT ERx for Nutren sent to [facility] [place] today. These orders are unable to be processed here, but may be eligible to fill using [facility] [place]. Please review and if appropriate, send forward for processing. Thank you! [facility] [phone] documented in this encounterCorey Hospital04-12-2024 [facility] 05-28-2023 Miscellaneous Notes* Telephone Encounter - [...] and advise. Grecia Wallace documented in this encounterCorey Hospital04-12-2024 [facility] NoteHNO ID: [id number] Author: EH KIMBALL RN Service: Nursing Author Type: Registered Nurse Type: Nursing Progress Note Filed: 05/27/2023 09:20 Note Text: Other: 0900 Pt verbalizes interest about bolus feeding. Writer made aware. [id number] NoteHoly Family HospitalUadcxzzx61-93-5541 NoteHoly Family HospitalAkqpgeyr66-67-8977 [place]Marth[place] [address]-08-2024 Note [id number]#1.00[facility] 05-22-2023 NoteHoly Family HospitalPfyodmua85-67-1022 NoteHoly Family HospitalZujhscgb79-27-5253 Note [facility] HospitalZdyqpeiv60-60-3607 NoteHoly Family HospitalOawfxwob73-83-0270 Telephone encounter Note* Telephone Encounter - Itzel Hurley RN - 05/18/2023 9:25 AM EDT Images from the original note were not included. EGD images; please review [facility] EGD Report 05/12/2023 [facility]04-02-2024 Miscellaneous Notes* Telephone Encounter - Itzel Hurley RN - 05/18/2023 9:25 AM EDT Images from the original note were not included. EGD images; please review [facility] EGD Report 05/12/2023 * Telephone Encounter - Silvina Brown - 05/18/2023 9:20 AM EDT Received records from [facility] Reyna. EGD dated 05/12/2023 Discharge Summary 05/11 to 05/14/2023 Ct Abdomen/Pelvis 05/11/2023 Please review thank you! documented in this encounterCorey Hospital04-02-2024 Telephone encounter Note * Telephone Encounter - Silvina Brown - 05/18/2023 9:20 AM EDT Received records from Salvador Axel. EGD dated 05/12/2023 Discharge Summary 05/11 to 05/14/2023 Ct Abdomen/Pelvis 05/11/2023 Please review thank you! [facility]04-01-2024 Hospital Discharge instructions Patient Education 05/17/2023 [...] at pharmacies and retail stores. Eat bland, jixb-ix-jzwmlh foods in small amounts as you are [...] and water are not available, use hand apparel designer. Make sure that everyone in your household washes their hands frequently. Take kcty-ztj-xxaiyjx and prescription medicines only as told by [...] and water are not available, use hand apparel designer. Watch your condition for any changes and for signs of dehydration. Keep all follow-up visits. This is important. This information is not intended to replace advice given to you by your health care provider. Make sure you discuss any questions you have with your health care provider. Document Revised: 08/08/2021 Document Reviewed: 08/08/2021 [employer] Patient Education 2022 [employer]. Follow Up Care 05/17/2023 14:15:17 With:Jaquan Paula [facility] Address: When:05/20/2023 [facility]04-01-2024 History of Present illness Narrative* Deacon Kat MD - 05/17/2023 2:40 PM EDT VIRTUAL VISIT PROGRESS NOTE This is a virtual visit using [employer] Zoom Video Visit. It required patient- provider interaction for the medical decision making as documented below. I have communicated my name and active licensure. The patient's identity and physical location wereverified at the time of this visit. Either the patient or their legal community representative has been informed of the risks [...] tired TESTING UGI series [facility], images not available: Addendum by Corie Garza MD on 04/01/2023 12:58 PM EST Interpreted By: Corie Garza, ADDENDUM: The exam was a single contrast upper GI with small-bowel follow-through Signed by: Corie Garza 04/01/2023 12:58 PM -------- ORIGINAL REPORT -------- Dictation workstation: [id number] Impression Postsurgical changes from gastric bypass. No evidence for obstruction.. MACRO: none Signed by: Corie Garza 03/17/2023 5:00 PM Dictation workstation: [id number] Narrative Interpreted By: Corie Garza, STUDY: FL UPPER GI W DOUBLE CONTRAST W SMALL BOWEL FOLLOW THROUGH; 03/17/2023 4:40 pm INDICATION: Signs/Symptoms:abdominal pain. COMPARISON: None. ACCESSION NUMBER(S): [id number] ORDERING CLINICIAN: TIFFANIE MENDEZ TECHNIQUE: Multiple fluoroscopic spot images were obtained during a single contrast upper GI with KUB. Total fluoroscopy time: 1 minute 32 seconds Radiation exposure (Reference Air Kerma): 99.36 mGy Images: 2 spot images 7 series and 2 delayed AP views of the abdomen FINDINGS: Kettle Firer images demonstrate postsurgical changes from previous Tan-en-Y [...] Corie Garza 03/16/2023 5:46 PM Dictation workstation: [id number] Narrative Interpreted By: Corie Garza, STUDY: CT ABDOMEN PELVIS W IV CONTRAST; 03/16/2023 5:27 pm INDICATION: Signs/Symptoms:abdominal pain - with oral and IV contrast. COMPARISON: None.. ACCESSION NUMBER(S): [id number] ORDERING CLINICIAN: TIFFANIE MENDEZ TECHNIQUE: Oral contrast [...] ER. Deacon Kat MD documented in this encounterCorey Hospital04-01-2024 [facility]04-[facility]-2024 Evaluation + Plan noteExtracted from: Title:ED Note [...] Appointment Date:05/19/2023 10:40:00 AM Scheduled Provider:Jaquan Paula Location:[facility] Appointment Type: Hospital Follow Up w/TCM Appointment Date:07/13/2023 08:20:00 AM Scheduled Provider:OLGA GATICA PA-C Location:[facility] Appointment Type:URO Office Visit Appointment Date:08/04/2023 09:45:00 AM Scheduled Provider:Rajni Rouse MD Location:[facility] Appointment Type:URO Office Visit Diagnostic Tests Pending * Drug Screen Urine 05/17/23 Future Scheduled Tests Radiology* US Renal 06/10/22 [facility]03-29-2024 Evaluation + Plan noteExtracted from: Title:Discharge [...] bedtime) With When Contact Information Jaquan Paula, [facility], MED Additional Instructions: Follow up with surgeon Additional Instructions: Appointment has already been scheduled Cannabinoid Hyperemesis Syndrome Nausea and Vomiting, Adult, Ckvh-ws-Dejw Extracted from: Title:Progress Note * Author:Rosalia Rivera MD Date:05/14/23 Impression and Plan This is a 33-year-old lady with past medical history of gastric sleeve surgery in July 2020, complicated by significant reflux switch to Tan-en-Y January 2022 at [facility], [facility] surgery February 2023 which reported helped [...] Orders Sbsq Hospital Care/Day Moderate 35 Minutes 64023 2. Intractable abdominal pain (R10.9: Unspecified abdominal [...] 05/11 Bentyl, Carafate, PPI twice daily Ordered: [facility] Hospital Care/Day Moderate 35 Minutes 69354 2. Intractable abdominal pain (R10.9: Unspecified abdominal [...] reflux switch to Tan-en-Y January 2022 at [facility], [facility] surgery February 2023 which reported helped [...] reflux switch to Tan-en-Y January 2022 at [facility], [facility] surgery February 2023 which reported helped [...] 2022 Author:Kuldip Arcos Jr, DO Date:05/12/23 Plan [place] [employer]hesi[employer] (ASA) physical status classification: [...] Ordered: Initial Hospital Care/Day Moderate [id number] in Status 2. Intractable abdominal pain [...] Appointment Date:05/19/2023 10:40:00 AM Scheduled Provider:Jaquan Paula Location:[facility] Appointment Type: Hospital Follow Up w/TCM Appointment Date:07/13/2023 08:20:00 AM Scheduled Provider:OLGA GATICA PA-C Location:[facility] Appointment Type:URO Office Visit Appointment Date:08/04/2023 09:45:00 AM Scheduled Provider:Rajni Rouse MD Location:[facility] Appointment Type:URO Office Visit Diagnostic Tests Pending * Copper Level 05/14/23 * HIV Screen 4th Generation wRfx 05/14/23 * Acute Hepatitis A B C Panel 05/14/23 Future Scheduled Tests Radiology* US Renal 06/10/22 [facility]03-29-2024 Hospital Discharge instructions Patient Education 05/14/2023 [...] as coffee and soda. Take and apply tjlm-bzr-llcoktm and prescription medicines only as told by [...] provider. Document Revised: 06/01/2022 Document Reviewed: 06/01/2022 [employer] Patient Education 2022 Exogenesis. 05/14/2023 11:56:24 Nausea and Vomiting, Adult, Njpu-nx-Awro Nausea and Vomiting, Adult Nausea is feeling [...] fruit juice). ?Low-calorie sports drinks. Eat bland, dbva-zr-emfqqu foods in small amounts as you are able, such as: ?Bananas. ?Applesauce. ?Rice. ?Low-fat (lean) meats. ?[place]. ?Crackers. Avoid drinking fluids that have a lot of sugar or caffeine in them. This includes energy drinks, sports drinks, and soda. Avoid alcohol. Avoid spicy or fatty foods. General instructions Take ruqg-emo-avpwuyx and prescription medicines only as told by your doctor. Drink enough fluid to keep your pee (urine) pale yellow. Wash your hands often with soap and water for at least 20 seconds. If you cannot use soap and water, use hand apparel designer. Make sure that everyone in your home [...] your doctor about eating and drinking. Take megx-yrw-fvnnxdn and prescription medicines only as told by your doctor. Contact your doctor if your symptoms get worse or you have new symptoms. Keep all follow-up visits. This information is not intended to replace advice given to you by your health care provider. Make sure you discuss any questions you have with your health care provider. Document Revised: 08/08/2021 Document Reviewed: 08/08/2021 [employer] Patient Education 2022 Exogenesis. Follow Up Care 05/12/2023 09:23:09 With:Patient has [facility] Health in place Address:Unknown When: Unknown With:Jaquan Paula FAM, MED Address: [address] [place] [phone] Business (1) When: Unknown With:Follow up with surgeon Address: When: Unknown Comments:Appointment has already been scheduled [facility]03-29-2024 NoteFort Hamilton HospitalComment on above:Result Comment: Electronically Signed By: Moncho Trejo DO.br\Date and Time Signed: 05/14/23 12:06 [id number] [facility] above:Result Comment: Electronically Signed By: Moncho Trejo DO.br\Date and Time Signed: 05/12/23 12:59 [id number] Hospital Discharge instructions Patient Education 05/11/2023 16:46:23 Abdominal Pain, Adult, Yyfm-hn-Sssy Abdominal Pain, Adult Many things can cause belly (abdominal) pain. Most times, belly pain is not dangerous. Many cases of belly pain can be watched and treated at home. Sometimes, though, belly pain is serious. Your doctor will try to find the cause of your belly pain. Follow these instructions at home: Medicines Take xnhd-iho-oodbfsq and prescription medicines only as told by [...] your belly pain for any changes. Take ysdg-plj-byezrsh and prescription medicines only as told by [...] provider. Document Revised: 06/12/2019 Document Reviewed: 06/12/2019 [employer] Patient Education 2022 Exogenesis. Follow Up Care 05/11/2023 11:48:15 With:Miguel JOHNSON, APRYL Bean, [facility] Address: [address] [place] [address], [address] [address] [phone] When:2 to 4 days Comments:Call today to schedule your follow upReturn to ED if symptoms worsen [facility]03-26-2024 Evaluation + Plan noteExtracted from: Title:ED [...] Date:07/13/2023 08:20:00 AM Scheduled Provider:OLGA GATICA PA-C Location:[facility] Appointment Type:URO Office Visit Appointment Date:08/04/2023 09:45:00 AM Scheduled Provider:Rajni Rouse MD Location:[facility] Appointment Type:URO Office Visit Future Scheduled Tests Radiology* US Renal 06/10/22 [facility]03-25-2024 Miscellaneous Notes* Telephone Encounter - Serena Neff - 05/10/2023 2:51 PM EDT Patient scheduled with Dr. Kat on 05/11. Serena Neff RN BSN Box Blank Machine Operator Helper for Dr. Kat * Telephone Encounter - [...] be seen by Dr. Kat. Christopher Neff PROPERTY WORKER Box Blank Machine Operator Helper for Dr. Kat * Telephone Encounter - Dorita Manning - 05/10/2023 10:44 AM EDT Patients calling concerned about [place]. She has been in the ER 2 times in the last 4 days. She was told to speak to DR who originally put her on TPN to discuss getting back on it. CB# [phone] documented in this encounterCorey [facility] Hospital Discharge instructions Patient Education 05/09/2023 [...] Follow these instructions at home: Medicines Take oevr-jrg-tybrgef and prescription medicines only as told by [...] Watch your condition for any changes. Take vgud-efn-qhpvnpf and prescription medicines only as told by [...] provider. Document Revised: 03/22/2020 Document Reviewed: 06/12/2019 [employer] Patient Education 2022 Exogenesis. Follow Up Care 05/09/2023 11:38:04 With:Earnest Oakes Address: [facility], [facility] [address] [address]- [phone] Business (1) When:05/12/2023 15:51:27 With:Jon Rivera Address: [facility], [facility] [address] [phone] Business (1) When:05/12/2023 15:51:00 With:Jaquan Morrow Address: [address] [place] [phone] Business (1) When:05/12/2023 15:50:53 [facility]03-24-2024 Evaluation + Plan noteExtracted from: Title:ED [...] Date:07/13/2023 08:20:00 AM Scheduled Provider:OLGA GATICA PA-C Location:[facility] Appointment Type:URO Office Visit Appointment Date:08/04/2023 09:45:00 AM Scheduled Provider:Nasim JOHNSON, Rajni Ballesteros Location:[facility] Appointment Type:URO Office Visit Future Scheduled Tests Radiology* US Renal 06/10/22 [facility]03-22-2024 Miscellaneous Notes* Telephone Encounter - Yvette Morgan - 05/07/2023 11:07 AM EDT Procedure canceled * Telephone Encounter - Santa Hart RN - 05/07/2023 10:47 AM EDT Patient is keeping 07/20/2023 Upper endoscopy appointment and wishes to cancel 05/14/2023 EGD appointment. Scheduling notified. documented in this encounterCorey [facility]03-[facility]24 Hospital Discharge instructions Patient Education 05/06/2023 [...] Follow these instructions at home: Medicines Take kdul-qgk-hrcrxcn and prescription medicines only as told by [...] Watch your condition for any changes. Take tedx-ctr-tpwoqwe and prescription medicines only as told by [...] provider. Document Revised: 03/22/2020 Document Reviewed: 06/12/2019 [employer] Patient Education 2022 Exogenesis. Follow Up Care 05/06/2023 15:41:48 With:Follow-up with your surgeon at soon as possible, call the office tomorrow to schedule an appointment. Return to the ER with any new or worsening symptoms. Address:Unknown When: Unknown With:Jaquan Morrow Address:Unknown When:Within 3 Day(s) [facility]03-13-2024 History of Present illness Narrative* Kasie [...] race variable for the IDMS-Traceable creatinine methods. [email or web address]://jasn.asnjournals.org/content//ASN.[email or web address] Calcium 8.5 - 10.4 mg/dL 8.7 Albumin [...] the body of the stomach FINAL DIAGNOSIS [facility] LAB STOMACH ANTRUM, BIOPSY: Erosive chronic active [...] healthy appearing mucosa. This was traversed. The clxax-vv-djcipca limb was characterized by healthy appearing mucosa. [...] healthy appearing mucosa. This was traversed. The vpwmi-eq-dmknval limb was characterized by healthy appearing mucosa. The jejunojejunal anastomosis was characterized by healthy appearing mucosa. The examined jejunum was normal. Impression: - Normal esophagus. - Tan-en-Y gastrojejunostomy with gastrojejunal anastomosis characterized by healthy appearing mucosa. No ulceration or stenosis. - Normal examined jejunum. - No specimens collected. Upper GI SERIES 03/17/23 FINDINGS: Kettle Firer images demonstrate postsurgical changes from previous Tan-en-Y [...] destructive bone lesions. CT ABD/PEL 12/06/22 ABDOMEN: Kettle Firer (topogram) images: No additional findings. Images of [...] which included preparing to see the patient, ugnx-ga-mvdt patient care, completing clinical documentation, obtaining and/or reviewing separately obtained history, performing a medically appropriate examination, counseling and educating the pat ient/family/caregiver, and ordering medications, tests, or procedures. Kasie Avalos MD April 22, 2023 2:06 PM documented in this encounterCorey Hospital03-13-2024 [facility] History of Present illness Narrative* Sherry Magaña [...] she connect with her bariatric surgeon at [facility]. I will follow-up with her in 2 weeks by telephone. documented in this encounterMer[facility] Work Phone: 1(126) 906-877602-21-2024 NoteK[facility]02-[facility]24 History of Present illness Narrative* Deacon Kat MD - 04/07/2023 1:48 PM EST VIRTUAL VISIT PROGRESS NOTE This is a virtual visit using LED Light Senset Zoom Video Visit. It required patient- provider interaction for the medical decision making as documented below. I have communicated my name and active licensure. The patient's identity and physical location wereverified at the time of this visit. Either the patient or their legal community representative has been informed of the risks [...] Low Deacon Kat MD documented in this encounterCorey Hospital02-16-2024 Hospital Discharge instructions Patient Education 04/02/2023 [...] Follow these instructions at home: Medicines Take mjwc-uyg-arjxrpu and prescription medicines only as told by [...] provider. Document Revised: 04/17/2021 Document Reviewed: 04/17/2021 [employer] Patient Education 2022 [employer] 04/02/2023 17:02:34 Abdominal Pain, Adult Abdominal [...] Follow these instructions at home: Medicines Take cdas-ewk-nixgmux and prescription medicines only as told by [...] Watch your condition for any changes. Take kzwd-nnm-angzhav and prescription medicines only as told by [...] provider. Document Revised: 03/22/2020 Document Reviewed: 06/12/2019 [employer] Patient Education 2022 Exogenesis. Follow Up Care 04/02/2023 10:53:50 With:Jon Rivera Address: [address], [address] [phone] Business (1) When:04/05/2023 16:23:56 Comments:Make sure to follow-up with your primary doctor and your surgeon. Follow-up with Dr. Rivera for the GI. Return to the emergency room if your pain gets worse or any new symptoms. With:Jaquan Morrow Address:Unknown When:Within 3 Day(s) [facility]02-16-2024 Evaluation + Plan noteExtracted from: Title:ED Note Author:Jose Ramon Martinez, Ashutosh Arroyo te:04/02/23 1. Chest pain (R07.9: Chest pain, unspecified) 2. Abdominal pain (R10.9: Unspecified abdominal pain) Orders: dicyclomine, 20 mg = 2 cap(s), Oral, QID, # 20 cap(s), Refills(s) 0, Pharmacy: [facility]/pharmacy #[id number], 167, cm, 04/02/23 [...] nausea/vomiting, # 16 tab(s), Refills(s) 0, [id number], cm, 04/02/23 11:01:00 EST, Height/Length [...] day(s), # 560 mL, Refills(s) 0, Pharmacy: [facility]/pharmacy #[id number], 167, cm, 04/02/23 [...] 09:45:00 AM Scheduled Provider:Nasim JOHNSON, Rajni Ballesteros Location:[facility] Appointment Type:URO Office Visit Future Scheduled Tests Radiology* US Renal 06/10/22 [facility]02-03-2024 Nurse Note* Stacie Blanco RN - 03/20/2023 4:41 PM EST Patient discharged home to care of self and . Patient transported to front entrance via wheelchair. No injuries, bleeding or distress noted. [facility]02-03-2024 Nurse Note* Stacie Blanco RN - 03/20/2023 [...] of NG tube. Order received. Waiting on associate technician to verify placement per order. 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 Will re attempt with patients consent. * Cathy Madera RN - 03/17/2023 12:06 PM EST Patient transported to Xray for placement of NG. Patient off unit. * Cathy Madera RN - 03/17/2023 11:44 AM EST This nurse notified body technician/painter that patient had NG tube placed and needed Xray for placement verification. This nurse messaged Rosa YUN to notify her that NG tube was placed and needed separate order for NG tube placement per body technician/painter. Order received. Will continue to monitor patient [...] at bedside. [facility] alert and oriented x 4. Patient [...] to ensure patient safety. documented in this encounterMer[facility] Work Phone: 1(422) 344-921902-03-2024 Nurse Note* Stacie Blanco RN - 03/20/2023 4:01 PM EST Provided/explained discharge instructions and summary. Provided opportunity for questions and discussion. No complaints or concerns communicated. [facility] Work Phone: 1(211) 941-692902-03-2024 History of Present illness Narrative* Nathalie Tyler RN - 03/20/2023 3:35 PM EST Patient is medically ready for discharge. Per previous manager care, plan for home with home health care. Message to provider that external home care referral is needed. UPDATE 1549: Discharging provider indicates no continued skilled needs for home care. Per bedside nurse May, patient is in agreement that she no longer needs home health care services. Referral to [facility] updated and closed. Patient will discharge no [...] Tomasa Keyes RN 03/19/2023 1431 Procedure Location [address] [address] Referring Provider Generic Provider [place] No address on file Procedure Provider No [...] 03/17/2023 done at 2:05 p.m. ACCESSION NUMBER(S): [id number] ORDERING CLINICIAN: TIFFANIE MENDEZ TECHNIQUE: AP erect view of the chest FINDINGS: The nasogastric tube has not ch anged in placement with the tip seen within the proximal thoracic esophagus. Heart and mediastinum are normally visualized. Lungs are clear. Distal tip of nasogastric tube in proximal thoracic esophagus just above the aortic arch. Signed by: Nya Amhadi 03/17/2023 8:19 PM Dictation workstation: [id number] FL upper GI w double contrast w small bowel follow through Result Date: 03/17/2023 Interpreted By: Corie Garza, STUDY: FL UPPER GI W DOUBLE CONTRAST W SMALL BOWEL FOLLOW THROUGH; 03/17/2023 4:40 pm INDICATION: Signs/Symptoms:abdominal pain. COMPARISON: None. ACCESSION NUMBER(S): [id number] ORDERING CLINICIAN: TIFFANIE MENDEZ TECHNIQUE: Multiple fluoroscopic spot images were obtained during a single contrast upper GI with KUB. Total fluoroscopy time: 1 minute 32 seconds Radiation exposure (Reference Air Kerma): 99.36 mGy Images: 2 spot images 7 series and 2 delayed AP viewsof the abdomen FINDINGS: Kettle Firer images demonstrate postsurgical changes from previous Tan-en-Y [...] Corie Garza 03/17/2023 5:00 PM Dictation workstation: [id number] XR chest 1 view Result Date: 03/17/2023 Interpreted By: Corie Garza, STUDY: XR CHEST 1 VIEW; 03/17/2023 12:41 pm INDICATION: Signs/Symptoms:Status post NG tube placement. COMPARISON: None available ACCESSION NUMBER(S): [id number] ORDERING CLINICIAN: TIFFANIE MENDEZ FINDINGS: RESULT: Nasogastric [...] Corie Garza 03/17/2023 4:19 PM Dictation workstation: [id number] CT abdomen pelvis w IV contrast Result Date: 03/16/2023 Interpreted By: Corie Garza, STUDY: CT ABDOMEN PELVIS W IV CONTRAST; 03/16/2023 5:27 pm INDICATION: Signs/Symptoms:abdominal pain - with oral and IV contrast. COMPARISON: None.. ACCESSION NUMBER(S): [id number] ORDERING CLINICIAN: TIFFANIE MENDEZ TECHNIQUE: Oral contrast [...] Corie Garza 03/16/2023 5:46 PM Dictation workstation: [id number] XR chest 1 view Result Date: 03/06/2023 Interpreted By: Sara Zarate, STUDY: XR CHEST 1 VIEW; 03/06/2023 7:32 am INDICATION: Signs/Symptoms:post op COMPARISON: None ACCESSION NUMBER(S): [id number] ORDERING CLINICIAN: JASON FOSTER TECHNIQUE: Frontal and [...] Sara Zarate 03/06/2023 1:48 PM Dictation workstation: [id number] XR chest 1 view Result Date: 03/05/2023 Interpreted By: Baldomero Hendrickson, STUDY: XR CHEST 1 VIEW; 03/05/2023 3:11 pm INDICATION: CLINICAL INFORMATION: Signs/Symptoms:NG tube placement confirmation. COMPARISON: 03/05/2019 at 745 hours ACCESSION NUMBER(S): [id number] ORDERING CLINICIAN: DESMOND TIRADO TECHNIQUE: Portable chest [...] Baldomero Hendrickson 03/05/2023 3:31 PM Dictation workstation: [id number] XR chest 1 view Result Date: 03/05/2023 Interpreted By: Nya Ahmadi, STUDY: XR CHEST 1 VIEW 03/05/2023 7:51 am INDICATION: Signs/Symptoms:confirm line placement COMPARISON: None available. ACCESSION NUMBER(S): [id number] ORDERING CLINICIAN: SERENA GEORGE TECHNIQUE: AP erect view of the chest FINDINGS: Right arm PICC line terminates in the SVC. There is no pneumothorax. The heart, mediastinum, and lungs are normally visualized. Right arm PICC line terminating in SVC without pneumothorax. No acute cardiopulmonary disease. Signed by: Nya Ahmadi 03/05/2023 7:54 AM Dictation workstation: [id number] Assessment/Plan Principal Problem: Abdominal pain NV, Epigastric [...] Tomasa Keyes RN 03/19/2023 1431 Procedure Location [address] [id number] Referring Provider Generic Provider [place] No address on file Procedure Provider No name on file XR chest 1 view Result Date: 03/17/2023 Interpreted By: Nya Ahmadi, STUDY: XR CHEST 1 VIEW 03/17/2023 7:09 pm INDICATION: Signs/Symptoms:S/p NG placement COMPARISON: 03/17/2023 done at 2:05 p.m. ACCESSION NUMBER(S): [id number] ORDERING CLINICIAN: TIFFANIE MENDEZ TECHNIQUE: AP erect view of the chest FINDINGS: The nasogastric tube has not ch anged in placement with the tip seen within the proximal thoracic esophagus. Heart and mediastinum are normally visualized. Lungs are clear. Distal tip of nasogastric tube in proximal thoracic esophagus just above the aortic arch. Signed by: Nya Ahmadi 03/17/2023 8:19 PM Dictation workstation: [id number] FL upper GI w double contrast w small bowel follow through Result Date: 03/17/2023 Interpreted By: Corie Garza, STUDY: FL UPPER GI W DOUBLE CONTRAST W SMALL BOWEL FOLLOW THROUGH; 03/17/2023 4:40 pm INDICATION: Signs/Symptoms:abdominal pain. COMPARISON: None. ACCESSION NUMBER(S): [id number] ORDERING CLINICIAN: TIFFANIE MENDEZ TECHNIQUE: Multiple fluoroscopic spot images were obtained during a single contrast upper GI with KUB. Total fluoroscopy time: 1 minute 32 seconds Radiation exposure (Reference Air Kerma): 99.36 mGy Images: 2 spot images 7 series and 2 delayed AP viewsof the abdomen FINDINGS: Kettle Firer images demonstrate postsurgical changes from previous Tan-en-Y [...] Corie Garza 03/17/2023 5:00 PM Dictation workstation: [id number] XR chest 1 view Result Date: 03/17/2023 Interpreted By: Corie Garza, STUDY: XR CHEST 1 VIEW; 03/17/2023 12:41 pm INDICATION: Signs/Symptoms:Status post NG tube placement. COMPARISON: None available ACCESSION NUMBER(S): [id number] ORDERING CLINICIAN: TIFFANIE MENDEZ FINDINGS: RESULT: Nasogastric [...] Corie Garza 03/17/2023 4:19 PM Dictation workstation: [id number] CT abdomen pelvis w IV contrast Result Date: 03/16/2023 Interpreted By: Corie Garza, STUDY: CT ABDOMEN PELVIS W IV CONTRAST; 03/16/2023 5:27 pm INDICATION: Signs/Symptoms:abdominal pain - with oral and IV contrast. COMPARISON: None.. ACCESSION NUMBER(S): [id number] ORDERING CLINICIAN: TIFFANIE MENDEZ TECHNIQUE: Oral contrast [...] Corie Garza 03/16/2023 5:46 PM Dictation workstation: [id number] XR chest 1 view Result Date: 03/06/2023 Interpreted By: Sara Zarate, STUDY: XR CHEST 1 VIEW; 03/06/2023 7:32 am INDICATION: Signs/Symptoms:post op COMPARISON: None ACCESSION NUMBER(S): [id number] ORDERING CLINICIAN: JASON FOSTER TECHNIQUE: Frontal and [...] Sara Zarate 03/06/2023 1:48 PM Dictation workstation: [id number] XR chest 1 view Result Date: 03/05/2023 Interpreted By: Baldomero Hendrickson, STUDY: XR CHEST 1 VIEW; 03/05/2023 3:11 pm INDICATION: CLINICAL INFORMATION: Signs/Symptoms:NG tube placement confirmation. COMPARISON: 03/05/2019 at 745 hours ACCESSION NUMBER(S): [id number] ORDERING CLINICIAN: DESMOND TIRADO TECHNIQUE: Portable chest [...] Baldomero Hendrickson 03/05/2023 3:31 PM Dictation workstation: [id number] XR chest 1 view Result Date: 03/05/2023 Interpreted By: Nya Ahmadi, STUDY: XR CHEST 1 VIEW 03/05/2023 7:51 am INDICATION: Signs/Symptoms:confirm line placement COMPARISON: None available. ACCESSION NUMBER(S): [id number] ORDERING CLINICIAN: SERENA GEORGE TECHNIQUE: AP erect view of the chest FINDINGS: Right arm PICC line terminates in the SVC. There is no pneumothorax. The heart, mediastinum, and lungs are normally visualized. Right arm PICC line terminating in SVC without pneumothorax. No acute cardiopulmonary disease. Signed by: Nya Ahmadi 03/05/2023 7:54 AM Dictation workstation: [id number] Assessment/Plan -Abdominal pain/nausea -Median arcuate ligament syndrome, [...] deferto her bariatric surgeon, Dr. Morel, at [place]. Will sign off. Kurt Matos MD * Anam Davila RN - 03/19/2023 3:11 PM EST Abbey Garcia is a 32 y.o. female on day 3 of admission presenting with Abdominal pain. Met with patient at bedside. Patient states she has been active with [facility] in [place] . Patient would like to continue HHC with [facility]. Referral was sent. EGD scheduled today. Has NG in place. [facility] is able to accept for STEF. NG discontinued. On clear liquids. WILL NEED AND EXTERNAL REFERRAL FOR RESUMPTION OF HHC. Anam Davila RN * Shelley Nash APRN-LABEL FOLDER - 03/19/2023 12:32 PM EST Abbey Garcia [...] her usual [facility] surgeons after DC. 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 MVI, B12. I spent 15 minutes in the professional and overall care of this patient. Shelley Nash, SLIM-LABEL FOLDER * Lizz Brunson SUPPORT SERVICES REP-LABEL FOLDER - 03/19/2023 10:09 AM EST Abbey Garcia [...] 03/17/2023 done at 2:05 p.m. ACCESSION NUMBER(S): [id number] ORDERING CLINICIAN: TIFFANIE MENDEZ TECHNIQUE: AP erect view of the chest FINDINGS: The nasogastric tube has not changed in placement with the tip seen within the proximal thoracic esophagus. Heart and mediastinum are normally visualized. Lungs are clear. Impression: Distal tip of nasogastric tube in proximal thoracic esophagus just above the aortic arch. Signed by: Nya Ahmadi 03/17/2023 8:19 PM Dictation workstation: [id number] FL upper GI w double contrast w small bowel follow through Narrative: Interpreted By: Corie Garza, STUDY: FL UPPER GI W DOUBLE CONTRAST W SMALL BOWEL FOLLOW THROUGH; 03/17/2023 4:40 pm INDICATION: Signs/Symptoms:abdominal pain. COMPARISON: None. ACCESSION NUMBER(S): [id number] ORDERING CLINICIAN: TIFFANIE MENDEZ TECHNIQUE: Multiple fluoroscopic spot images were obtained during a single contrast upper GI with KUB. Total fluoroscopy time: 1 minute 32 seconds Radiation exposure (Reference Air Kerma): 99.36 mGy Images: 2 spot images 7 series and 2 delayed AP views of the abdomen FINDINGS: Kettle Firer images demonstrate postsurgical changes from previous Tan-en-Y [...] Corie Garza 03/17/2023 5:00 PM Dictation workstation: [id number] XR chest 1 view Narrative: Interpreted By: Corie Garza, STUDY: XR CHEST 1 VIEW; 03/17/2023 12:41 pm INDICATION: Signs/Symptoms:Status post NG tube placement. COMPARISON: None available ACCESSION NUMBER(S): [id number] ORDERING CLINICIAN: TIFFANIE MENDEZ FINDINGS: RESULT: Nasogastric [...] Corie Garza 03/17/2023 4:19 PM Dictation workstation: [id number] Physical Exam Vitals and nursing note reviewed. [...] her usual [facility] surgeons after DC. 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 MVI, B12. I spent 15 minutes in [...] Marino with Modesto Reyna, prescriptions filled through [facility] in [place]. Uncertain if pt will have dc needs. Her last admit she went home with [facility]. TCC to follow ongoing medical workup. Safe dc plan not secured-TCC to follow Sabina Hurd MSSA, ANGIOGRAPHER * Lizz Brunson APRN-LABEL FOLDER - 03/18/2023 10:57 AM EST Abbey Garcia [...] 03/17/2023 done at 2:05 p.m. ACCESSION NUMBER(S): [id number] ORDERING CLINICIAN: TIFFANIE MENDEZ TECHNIQUE: AP erect view of the chest FINDINGS: The nasogastric tube has not changed in placement with the tip seen within the proximal thoracic esophagus. Heart and mediastinum are normally visualized. Lungs are clear. Impression: Distal tip of nasogastric tube in proximal thoracic esophagus just above the aortic arch. Signed by: Nya Ahmadi 03/17/2023 8:19 PM Dictation workstation: [id number] FL upper GI w double contrast w small bowel follow through Narrative: Interpreted By: Corie Garza, STUDY: FL UPPER GI W DOUBLE CONTRAST W SMALL BOWEL FOLLOW THROUGH; 03/17/2023 4:40 pm INDICATION: Signs/Symptoms:abdominal pain. COMPARISON: None. ACCESSION NUMBER(S): [id number] ORDERING CLINICIAN: TIFFANIE MENDEZ TECHNIQUE: Multiple fluoroscopic spot images were obtained during a single contrast upper GI with KUB. Total fluoroscopy time: 1 minute 32 seconds Radiation exposure (Reference Air Kerma): 99.36 mGy Images: 2 spot images 7 series and 2 delayed AP views of the abdomen FINDINGS: Kettle Firer images demonstrate postsurgical changes from previous Tan-en-Y [...] Corie Garza 03/17/2023 5:00 PM Dictation workstation: [id number] XR chest 1 view Narrative: Interpreted By: Corie Garza, STUDY: XR CHEST 1 VIEW; 03/17/2023 12:41 pm INDICATION: Signs/Symptoms:Status post NG tube placement. COMPARISON: None available ACCESSION NUMBER(S): [id number] ORDERING CLINICIAN: TIFFANIE MENDEZ FINDINGS: RESULT: Nasogastric [...] Corie Garza 03/17/2023 4:19 PM Dictation workstation: [id number] Physical Exam Vitals and nursing note reviewed. [...] 03/17/2023 done at 2:05 p.m. ACCESSION NUMBER(S): [id number] ORDERING CLINICIAN: TIFFANIE MENDEZ TECHNIQUE: AP erect view of the chest FINDINGS: The nasogastric tube has not ch anged in placement with the tip seen within the proximal thoracic esophagus. Heart and mediastinum are normally visualized. Lungs are clear. Distal tip of nasogastric tube in proximal thoracic esophagus just above the aortic arch. Signed by: Nya Ahmadi 03/17/2023 8:19 PM Dictation workstation: [id number] FL upper GI w double contrast w small bowel follow through Result Date: 03/17/2023 Interpreted By: Corie Garza, STUDY: FL UPPER GI W DOUBLE CONTRAST W SMALL BOWEL FOLLOW THROUGH; 03/17/2023 4:40 pm INDICATION: Signs/Symptoms:abdominal pain. COMPARISON: None. ACCESSION NUMBER(S): [id number] ORDERING CLINICIAN: TIFFANIE MENDEZ TECHNIQUE: Multiple fluoroscopic spot images were obtained during a single contrast upper GI with KUB. Total fluoroscopy time: 1 minute 32 seconds Radiation exposure (Reference Air Kerma): 99.36 mGy Images: 2 spot images 7 series and 2 delayed AP viewsof the abdomen FINDINGS: Kettle Firer images demonstrate postsurgical changes from previous Tan-en-Y [...] Corie Garza 03/17/2023 5:00 PM Dictation workstation: [id number] XR chest 1 view Result Date: 03/17/2023 Interpreted By: Corie Garza, STUDY: XR CHEST 1 VIEW; 03/17/2023 12:41 pm INDICATION: Signs/Symptoms:Status post NG tube placement. COMPARISON: None available ACCESSION NUMBER(S): [id number] ORDERING CLINICIAN: TIFFANIE MENDEZ FINDINGS: RESULT: Nasogastric [...] Corie Garza 03/17/2023 4:19 PM Dictation workstation: [id number] CT abdomen pelvis w IV contrast Result Date: 03/16/2023 Interpreted By: Corie Garza, STUDY: CT ABDOMEN PELVIS W IV CONTRAST; 03/16/2023 5:27 pm INDICATION: Signs/Symptoms:abdominal pain - with oral and IV contrast. COMPARISON: None.. ACCESSION NUMBER(S): [id number] ORDERING CLINICIAN: TIFFANIE MENDEZ TECHNIQUE: Oral contrast [...] Corie Garza 03/16/2023 5:46 PM Dictation workstation: [id number] Assessment/Plan Abdominal pain, nausea, chronic intolerance to [...] Will discuss EGD with Dr. Preston tomorrow. Daisy Montero SLIM-LABEL FOLDER * Deepika Roy, SLIM-LABEL FOLDER - 03/18/2023 8:50 AM EST Abbey Garcia [...] 03/17/2023 done at 2:05 p.m. ACCESSION NUMBER(S): [id number] ORDERING CLINICIAN: TIFFANIE MENDEZ TECHNIQUE: AP erect view of the chest FINDINGS: The nasogastric tube has not ch anged in placement with the tip seen within the proximal thoracic esophagus. Heart and mediastinum are normally visualized. Lungs are clear. Distal tip of nasogastric tube in proximal thoracic esophagus just above the aortic arch. Signed by: Nya Ahmadi 03/17/2023 8:19 PM Dictation workstation: [id number] FL upper GI w double contrast w small bowel follow through Result Date: 03/17/2023 Interpreted By: Corie Garza, STUDY: FL UPPER GI W DOUBLE CONTRAST W SMALL BOWEL FOLLOW THROUGH; 03/17/2023 4:40 pm INDICATION: Signs/Symptoms:abdominal pain. COMPARISON: None. ACCESSION NUMBER(S): [id number] ORDERING CLINICIAN: TIFFANIE EMNDEZ TECHNIQUE: Multiple fluoroscopic spot images were obtained during a single contrast upper GI with KUB. Total fluoroscopy time: 1 minute 32 seconds Radiation exposure (Reference Air Kerma): 99.36 mGy Images: 2 spot images 7 series and 2 delayed AP viewsof the abdomen FINDINGS: Kettle Firer images demonstrate postsurgical changes from previous Tan-en-Y [...] Corie Garza 03/17/2023 5:00 PM Dictation workstation: [id number] XR chest 1 view Result Date: 03/17/2023 Interpreted By: Corie Garza, STUDY: XR CHEST 1 VIEW; 03/17/2023 12:41 pm INDICATION: Signs/Symptoms:Status post NG tube placement. COMPARISON: None available ACCESSION NUMBER(S): [id number] ORDERING CLINICIAN: TIFFANIE MENDEZ FINDINGS: RESULT: Nasogastric [...] Corie Garza 03/17/2023 4:19 PM Dictation workstation: [id number] CT abdomen pelvis w IV contrast Result Date: 03/16/2023 Interpreted By: Corie Garza, STUDY: CT ABDOMEN PELVIS W IV CONTRAST; 03/16/2023 5:27 pm INDICATION: Signs/Symptoms:abdominal pain - with oral and IV contrast. COMPARISON: None.. ACCESSION NUMBER(S): [id number] ORDERING CLINICIAN: TIFFANIE MENDEZ TECHNIQUE: Oral contrast [...] Corie Garza 03/16/2023 5:46 PM Dictation workstation: [id number] XR chest 1 view Result Date: 03/06/2023 Interpreted By: Sara Zarate, STUDY: XR CHEST 1 VIEW; 03/06/2023 7:32 am INDICATION: Signs/Symptoms:post op COMPARISON: None ACCESSION NUMBER(S): [id number] ORDERING CLINICIAN: JASON FOSTER TECHNIQUE: Frontal and [...] Sara Zarate 03/06/2023 1:48 PM Dictation workstation: [id number] XR chest 1 view Result Date: 03/05/2023 Interpreted By: Baldomero Hendrickson, STUDY: XR CHEST 1 VIEW; 03/05/2023 3:11 pm INDICATION: CLINICAL INFORMATION: Signs/Symptoms:NG tube placement confirmation. COMPARISON: 03/05/2019 at 745 hours ACCESSION NUMBER(S): [id number] ORDERING CLINICIAN: DESMOND TIRADO TECHNIQUE: Portable chest [...] Baldomero Hendrickson 03/05/2023 3:31 PM Dictation workstation: [id number] XR chest 1 view Result Date: 03/05/2023 Interpreted By: Nya Ahmadi, STUDY: XR CHEST 1 VIEW 03/05/2023 7:51 am INDICATION: Signs/Symptoms:confirm line placement COMPARISON: None available. ACCESSION NUMBER(S): [id number] ORDERING CLINICIAN: SERENA GEORGE TECHNIQUE: AP erect view of the chest FINDINGS: Right arm PICC line terminates in the SVC. There is no pneumothorax. The heart, mediastinum, and lungs are normally visualized. Right arm PICC line terminating in SVC without pneumothorax. No acute cardiopulmonary disease. Signed by: Nya Ahmadi 03/05/2023 7:54 AM Dictation workstation: [id number] Assessment/Plan Principal Problem: Abdominal pain NV, Epigastric [...] -Increase PPI to twice daily Deepika Roy APRN-LABEL FOLDER Associated attestation - Yani Wong MD - [...] and IV contrast. COMPARISON: None.. ACCESSION NUMBER(S): [id number] ORDERING CLINICIAN: TIFFANIE MENDEZ TECHNIQUE: Oral contrast [...] Corie Garza 03/16/2023 5:46 PM Dictation workstation: [id number] Physical Exam Vitals and nursing note reviewed. [...] in her local emergency room out in [place]. She was discharged after her nausea was relieved last night but this nausea recurred and she was transferred here. I suspect given adequate pain control and control of her nausea that once the inflammation of her surgery resolves she will feel much better. Pancreatitis and bowel ischemia have been ruled out through lab testing and noncontrast CT done yesterday in [place]. I am going to get a CT scan with IV andoral contrast today and start IV fluids and antiemetics as well as analgesics. Unless she starts taking p.o.'s well I will likely place a feeding tube and start enteral feedings during this hospitalization. She will be getting a gastroenterology consultation as well as a foregut surgery consultation. [facility]: 1(928) 433-816302-03-2024 Hospital Discharge instructions* Discharge Instructions* JAMA Lynn [...] up in 1-2 weeks [facility] Work Phone: 1([phone]) 454-676702-02-2024 Plan of care note* Care Plan - [...] pain meds throughout the shift Outcome: Progressing [facility]02-02-2024 Miscellaneous Notes* Care Plan - Nathalie [...] include decrease nausea * Care Plan - Nathalie Campos RN [...] of abdominal pain with considerable notes from F, and has a history gastric bypass, cholecystectomy, sphincterectomy, and recent median arcuate ligament release on March 05 with vascular surgery. [facility] and sent home, [...] issue which will be best done at [facility] either as inpatient or outpatient, where she has ongoing work, or is a postoperative situation that has been discussed multiple times with the primary operating service (and I have discussed with Tiffanie Mendez CNP with their service and there appears to be a good plan for imaging studies), and can ba admitted by their service). documented in this [facility] Work Phone: 1(430) 254-337002-02-2024 Plan of care note* Care Plan - [...] include. Recommendations to address these barriers include. [facility]02-01-2024 Plan of care note* Care Plan [...] pain meds throughout the shift Outcome: [facility]ing [facility] Work Phone: 1(331) 423-597702-01-2024 Nurse Note* Andie Lugo RN - 03/18/2023 4:47 PM EST Pt resting quietly in bed, no distres noted [facility]02-01-2024 Nurse Note* Andie Lugo RN - 03/18/2023 3:17 PM EST Pt given IS and instructed how to use, pt verbalized understanding [facility] Work Phone: 1([phone]) 267-298802-01-2024 Nurse Note* Andie Lugo RN - 03/18/2023 2:50 PM EST Ronnie foster cnp into see pt [facility] Work Phone: 1([phone]) 347-619802-01-2024 Consult note* Nabila Moore RDN, LD - [...] tablet 5 mcg, 5 mcg, oral, Daily, Tiffanie Mendez APRN- BETH, 5 mcg at 609 mirtazapine (Remeron) tablet 15 mg, 15 mg, oral, Nightly, Tiffanie Mendez APRN- LABEL FOLDER, 15 mg at 03/17/231955 morphine injection 2 mg, 2 mg, intravenous, q4h PRN, Lizz Brunson APRN-LABEL FOLDER, 2 mg at 03/18/23 140 ondansetron (Zofran) injection 4 mg, 4 mg, intravenous, q6h PRN, Tiffanie Mendez APRN-BETH, 4 mg at 03/17/231954 oxyCODONE-acetaminophen (Percocet) 5-325 mg per tablet 1 tablet, 1 tablet, oral, q6h PRN, JAMA Judd, 1 tablet at 03/17/23 0803 pantoprazole (ProtoNix) injection 40 mg, 40 mg, intravenous, BID, Kurt Matos MD, 40 mg at 03/18/23 0811 polyethylene glycol (Glycolax, Miralax) packet 17 g, 17 g, oral, Daily PRN, Tiffanie Mendez APRN-BETH thiamine (Vitamin B1) injection 100 mg, 100 mg, intravenous, Daily, Kurt Nguyen MD, 100 mg at 03/18/23 0811 Dietary Orders (From admission, onward) Start Ordered 03/16/23 1508 NPO Diet; Effective now Diet effective now 03/16/23 1509 Estimated Needs: Estimated Energy Needs Total Energy Estimated Needs (kCal): (3749-3461 kcals) Total Estimated Energy Need per Day (kCal/kg): (25-30 kcals/kg) Method for Estimating Needs: adjusted IBW Estimated Protein Needs Total Protein Estimated Needs (g): (68-81g Protein) Total Protein Estimated Needs (g/kg): (1-1.2 g/kg) Method for Estimating Needs: adjusted IBW Estimated Fluid Needs Total Fluid Estimated Needs (mL): (8292-1646 mL fluid) Method for Estimating Needs: 1 [...] Prescription: Individualized Nutrition Prescription Provided for : 2373-8227 kcals, 68-81g Protein, 9102-0495 mL fluid, provided via PO/NG, once diet advanced. Nutrition Interventions: Food and/or Nutrient Delivery Interventions Interventions: Enteral intake Enteral Intake: Modify composition of enteral nutrition, Modify rate of enteral nutrition Goal: When able to initiate Tube feeding, recommend Osmolite 1.5 @ goal rate of 45 mL/hr to [id number] kcals, 68g Protein, and 823 mL free [...] Needed?: 3-5 days Follow up Comment: 03/22/[address] [facility]02-01-2024 Consult note* Nabila Moore RDN, LD - [...] Energy Needs Total Energy Estimated Needs (kCal): (2994-1201 kcals) Total Estimated Energy Need per Day (kCal/kg): (25-30 kcals/kg) Method for Estimating Needs: adjusted IBW Estimated Protein Needs Total Protein Estimated Needs (g): (68-81g Protein) Total Protein Estimated Needs (g/kg): (1-1.2 g/kg) Method for Estimating Needs: adjusted IBW Estimated Fluid Needs Total Fluid Estimated Needs (mL): (2955-1357 mL fluid) Method for Estimating Needs: 1 [...] Prescription: Individualized Nutrition Prescription Provided for : 3649-6798 kcals, 68-81g Protein, 8124-6734 mL fluid, provided via PO/NG, once diet advanced. Nutrition Interventions: Food and/or Nutrient Delivery Interventions Interventions: Enteral intake Enteral Intake: Modify composition of enteral nutrition, Modify rate of enteral nutrition Goal: When able to initiate Tube feeding, recommend Osmolite 1.5 @ goal rate of 45 mL/hr to [id number] kcals, 68g Protein, and 823 mL free [...] with liver biopsy in April 2020 at [facility] in evaluation of her chronic abdominal pain and intermittent food intolerance. She had a vertical sleeve gastrectomy at [facility] on September 03, 2020 for morbid obesity. She had a diagnostic laparoscopy on March 20, 2021 at [facility] for chronic pain thought to be secondary to an abdominal wall hernia. No hernia was seen at laparoscopy. She complained of gastroesophageal reflux disease and had her vertical sleeve gastrectomy converted to Tan-en-Y gastric bypass at [facility] on January 29, 2022. On March 06, 2022 she had an upper endoscopy at [facility] for epigastric abdominal pain. Her gastrojejunostomy was congested, edematous, with erosions and friable mucosa. The anastomosis was dilated and she was discharged on twice daily PPI. She had an upper endoscopy at [facility] onJune 23, 2022 for epigastric pain. At that time her gastrojejunostomy appeared normal. She continued to complain of abdominal pain and had an upper endoscopy at the [facility] on October 27, 2022. She was found to have food in her stomach and jejunum. There was no evidence of gastrojejunal ulcer. On November 11, 2022 she had laparoscopic closure of internal hernia at the jejunojejunostomy and ERCP through her gastric remnant for her abdominal pain. She was hospitalized at the [facility] on December 06, 2022 for abdominal pain. [...] by laparotomy on March 05, 2023 at [facility]. She was discharged to home on March [...] CKD (chronic kidney disease), Cognitivedecline, Crohn's disease ([facility]/HCC), Dementia ([facility]/HCC), Dysphagia, Endometrial cancer ([facility]/HCC), Esophageal cancer ([facility]/HCC), Esophageal disease, ESRD (end stage renal disease) ([facility]/HCC), Fibromyalgia, primary, Fractures, Gastric cancer ([facility]/HCC), Gender dysphoria, GI (gastrointestinal bleed), Hemodialysis status ([facility]/HCC), Hernia, internal, History of peritoneal dialysis, HIV disease ([facility]/HCC), Immunocompromised ([facility]/HCC), Liver disease, Lumbar disc disease, Mastocytosis, MS (multiple sclerosis) ([facility]/HCC), Muscular dystrophy ([facility]/HCC), Myasthenia gravis ([facility]/HCC), Neuromuscular disorder ([facility]/HCC), Ovarian cancer ([facility]/HCC), Pancreatitis, Peptic ulcer disease, Prematurity, PTSD (post-traumatic stress disorder), Schizophrenia ([facility]/HCC), Seizure disorder ([facility]/HCC), Spinal stenosis, Substanceaddiction ([facility]/HCC), Syncope, TIA (transient ischemic attack), Ulcerative colitis ([facility]/HCC), Urinary tract infection, Uterine cancer ([facility]/HCC), or Vertigo. Surgical History She has a [...] INDICATION: Signs/Symptoms:abdominal pain. COMPARISON: None. ACCESSION NUMBER(S): [id number] ORDERING CLINICIAN: TIFFANIE MENDEZ TECHNIQUE: Multiple fluoroscopic spot images were obtained during a single contrast upper GI with KUB. Total fluoroscopy time: 1 minute 32 seconds Radiation exposure (Reference Air Kerma): 99.36 mGy Images: 2 spot images 7 series and 2 delayed AP views of the abdomen FINDINGS: Kettle Firer images demonstrate postsurgical changes from previous Tan-en-Y [...] Corie Garza 03/17/2023 5:00 PM Dictation workstation: [id number] Latest Reference Range & Units 03/17/23 07:04 [...] and recommendations. Kurt Matos MD * Cheyenne Jansen APRN-LABEL FOLDER - 03/17/2023 10:29 AM EST Consults Reason [...] Gender dysphoria, GI (gastrointestinal bleed), Hemodialysis status (CMS/HCC), Hernia, internal, History of peritoneal dialysis, HIV [...] Name Age of Onset Diabetes Mother Jessica Artrichard Hypertension Mother Jessica Artino Cancer Maternal Grandfather [...] and IV contrast. COMPARISON: None.. ACCESSION NUMBER(S): [id number] ORDERING CLINICIAN: TIFFANIE MENDEZ TECHNIQUE: Oral contrast [...] Corie Garza 03/16/2023 5:46 PM Dictation workstation: [id number] XR chest 1 view Result Date: 03/06/2023 Interpreted By: Sara Zarate, STUDY: XR CHEST 1 VIEW; 03/06/2023 7:32 am INDICATION: Signs/Symptoms:post op COMPARISON: None ACCESSION NUMBER(S): [id number] ORDERING CLINICIAN: JASON FOSTER TECHNIQUE: Frontal and [...] Sara Zarate 03/06/2023 1:48 PM Dictation workstation: [id number] XR chest 1 view Result Date: 03/05/2023 Interpreted By: Baldomero Hendrickson, STUDY: XR CHEST 1 VIEW; 03/05/2023 3:11 pm INDICATION: CLINICAL INFORMATION: Signs/Symptoms:NG tube placement confirmation. COMPARISON: 03/05/2019 at 745 hours ACCESSION NUMBER(S): [id number] ORDERING CLINICIAN: DESMOND TIRADO TECHNIQUE: Portable chest [...] Baldomero Hendrickson 03/05/2023 3:31 PM Dictation workstation: [id number] XR chest 1 view Result Date: 03/05/2023 Interpreted By: Nya Ahmadi, STUDY: XR CHEST 1 VIEW 03/05/2023 7:51 am INDICATION: Signs/Symptoms:confirm line placement COMPARISON: None available. ACCESSION NUMBER(S): [id number] ORDERING CLINICIAN: SERENA GEORGE TECHNIQUE: AP erect view of the chest FINDINGS: Right arm PICC line terminates in the SVC. There is no pneumothorax. The heart, mediastinum, and lungs are normally visualized. Right arm PICC line terminating in SVC without pneumothorax. No acute cardiopulmonary disease. Signed by: Nya Ahmadi 03/05/2023 7:54 AM Dictation workstation: [id number] Assessment/Plan NV, Epigastric Pain (LFTs are normal. [...] the presence of Dr. Jah Nguyen. * JAMA Smith - 03/16/2023 5:09 PM EST Consults Reason For Consult Medical management History Of Present Illness Abbey Garcia is a 32 y.o. female presenting with abdominal pain. 32-year-old female presents to [facility] for chief complaint of abdominal pain, [...] emergency room close to her home near [place], [place] for further evaluation and was promptly transferred to [facility] for further evaluation and treatment. The [...] Esophageal disease, ESRD (end stage renal disease) ([facility]/HCC), Fibromyalgia, primary, Fractures, Gastric cancer ([facility]/HCC), Gender dysphoria, GI (gastrointestinal bleed), Hemodialysis status ([facility]), Hernia, internal, History of peritoneal dialysis, HIV disease ([facility]/HCC), Immunocompromised ([facility]/HCC), Liver disease, Lumbar disc disease, Mastocytosis, MS (multiple sclerosis) ([facility]), Muscular dystrophy ([facility]), Myasthenia gravis ([facility]), Neuromuscular disorder ([facility]), Ovarian cancer ([facility]), Pancreatitis, Peptic ulcer disease, Prematurity, PTSD (post-traumatic stress disorder), Schizophrenia ([facility]), Seizure disorder ([facility]), Spinal stenosis, Substanceaddiction ([facility]), Syncope, TIA (transient ischemic attack), Ulcerative colitis ([facility]), Urinary tract infection, Uterine cancer ([facility]), or Vertigo. Surgical History She has a [...] to follow. JAMA Smith [facility] Phone: 1(931) 812-926302-01-2024 Plan of care note* Care Plan - Andie Lugo RN - 03/18/2023 11:05 AM EST The patient's goals for the shift include Free from pain The clinical goals for the shift include decrease nausea [facility] Work Phone: 1([phone]) 651-752702-01-2024 Nurse Note* Andie Lugo RN - 03/18/2023 7:27 AM EST Assumed care of pt, pt resting quietly in bed, ng to liws , will monitor [facility] Work Phone: 1([phone]) 259-360801-31-2024 Plan of care note* Care Plan - [...] pain meds throughout the shift Outcome: Progressing [facility] Work Phone: 1([phone]) 218-813401-31-2024 Consult note* Kurt Matos MD - 03/17/2023 [...] with liver biopsy in April 2020 at [facility] in evaluation of her chronic abdominal pain and intermittent food intolerance. She had a vertical sleeve gastrectomy at [facility] on September 03, 2020 for morbid obesity. She had a diagnostic laparoscopy on March 20, 2021 at [facility] for chronic pain thought to be secondary to an abdominal wall hernia. No hernia was seen at laparoscopy. She complained of gastroesophageal reflux disease and had her vertical sleeve gastrectomy converted to Tan-en-Y gastric bypass at [facility] on January 29, 2022. On March 06, 2022 she had an upper endoscopy at [facility] for epigastric abdominal pain. Her gastrojejunostomy was congested, edematous, with erosions and friable mucosa. The anastomosis was dilated and she was discharged on twice daily PPI. She had an upper endoscopy at [facility] onJune 23, 2022 for epigastric pain. At that time her gastrojejunostomy appeared normal. She continued to complain of abdominal pain and had an upper endoscopy at the [facility] on October 27, 2022. She was found to have food in her stomach and jejunum. There was no evidence of gastrojejunal ulcer. On November 11, 2022 she had laparoscopic closure of internal hernia at the jejunojejunostomy and ERCP through her gastric remnant for her abdominal pain. She was hospitalized at the [facility] on December 06, 2022 for abdominal pain. [...] by laparotomy on March 05, 2023 at [facility]. She was discharged to home on March [...] Irritable bowel syndrome, Median arcuate ligament syndrome ([facility]/HCC), PCOS (polycystic ovarian syndrome), PONV (postoperative nausea and vomiting), PUD (peptic ulcer disease), and Shortness of breath. She has no past medical history of MARSHAL (acute kidney injury) ([facility]), Autoimmune disorder ([facility]), Bipolar disorder ([facility]), BPH (benign prostatic hyperplasia), Cerebral aneurysm, Cervical cancer ([facility]), Cervical disc disease, Chronic kidney disease, CKD (chronic kidney disease), Cognitivedecline, Crohn's disease ([facility]/HCC), Dementia ([facility]), Dysphagia, Endometrial cancer ([facility]), Esophageal cancer ([facility]), Esophageal disease, ESRD (end stage renal disease) ([facility]), Fibromyalgia, primary, Fractures, Gastric cancer ([facility]), Gender dysphoria, GI (gastrointestinal bleed), Hemodialysis status ([facility]), Hernia, internal, History of peritoneal dialysis, HIV disease ([facility]), Immunocompromised ([facility]), Liver disease, Lumbar disc disease, Mastocytosis, MS (multiple sclerosis) ([facility]), Muscular dystrophy ([facility]), Myasthenia gravis ([facility]), Neuromuscular disorder ([facility]), Ovarian cancer ([facility]), Pancreatitis, Peptic ulcer disease, Prematurity, PTSD (post-traumatic stress disorder), Schizophrenia ([facility]), Seizure disorder ([facility]), Spinal stenosis, Substanceaddiction (CMS/HCC), Syncope, TIA (transient [...] INDICATION: Signs/Symptoms:abdominal pain. COMPARISON: None. ACCESSION NUMBER(S): [id number] ORDERING CLINICIAN: TIFFANIE MENDEZ TECHNIQUE: Multiple fluoroscopic spot images were obtained during a single contrast upper GI with KUB. Total fluoroscopy time: 1 minute 32 seconds Radiation exposure (Reference Air Kerma): 99.36 mGy Images: 2 spot images 7 series and 2 delayed AP views of the abdomen FINDINGS: Kettle Firer images demonstrate postsurgical changes from previous Tan-en-Y [...] Corie Garza 03/17/2023 5:00 PM Dictation workstation: [id number] Latest Reference Range & Units 03/17/23 07:04 [...] my evaluation and recommendations. Kurt Matos MD [facility] Work Phone: [phone] Nurse Note* Cathy Madera RN - 03/17/2023 6:05 PM EST NG tube re inserted per order. Patient tolerated well. No complications. This nurse requested orderfor xray for placement of NG tube. Order received. Waiting on associate technician to verify placement per order. Will continue to monitor patient to ensure patient safety. [facility] Work Phone: [phone] Plan of care note* Care Plan - [...] pain control, maintain and ensure patient safety. [facility] Work Phone: [phone] Nurse Note* Cathy Madera RN - 03/17/2023 [...] per to re insert NG tube and geothermal powerplant supervisor to low suction. Will re attempt with patients consent. [facility] Work Phone: [phone] Nurse Note* Cathy Madera RN - 03/17/2023 12:06 PM EST Patient transported to [facility] for placement of NG. Patient off unit. [facility] Work Phone: [phone] Nurse Note* Cathy Madera RN - 03/17/2023 11:44 AM EST This nurse notified body technician/painter that patient had NG tube placed and needed Xray for placement verification. This nurse messaged Rosa YUN to notify her that NG tube was placed and needed separate order for NG tube placement per body technician/painter. Order received. Will continue to monitor patient to ensure patient safety. [facility] Work Phone: [phone] History and physical note* Tiffanie Mendez, SUPPORT SERVICES REP-LABEL FOLDER - 03/17/2023 11:03 AM EST History Of Present Illness This is a 32-year-old female with past medical history of chronic abdominal pain, PCOS, PUD, depression, GERD, IBS, obesity (status post laparoscopic sleeve gastrectomy in August [address] Ku eajLvsk-ew-R gastric bypass 01/29/[address] Kat) and [...] her local hospital and was transferred to [facility] per Dr. Magaña's request. Patient [...] and IV contrast. COMPARISON: None.. ACCESSION NUMBER(S): [id number] ORDERING CLINICIAN: TIFFANIE MENDEZ TECHNIQUE: Oral contrast [...] Corie Garza 03/16/2023 5:46 PM Dictation workstation: [id number] XR chest 1 view Result Date: 03/06/2023 Interpreted By: Sara Zarate, STUDY: XR CHEST 1 VIEW; 03/06/2023 7:32 am INDICATION: Signs/Symptoms:post op COMPARISON: None ACCESSION NUMBER(S): [id number] ORDERING CLINICIAN: JASON FOSTER TECHNIQUE: Frontal and [...] Sara Zarate 03/06/2023 1:48 PM Dictation workstation: [id number] XR chest 1 view Result Date: 03/05/2023 Interpreted By: Baldomero Hendrickson, STUDY: XR CHEST 1 VIEW; 03/05/2023 3:11 pm INDICATION: CLINICAL INFORMATION: Signs/Symptoms:NG tube placement confirmation. COMPARISON: 03/05/2019 at 745 hours ACCESSION NUMBER(S): [id number] ORDERING CLINICIAN: DESMOND TIRADO TECHNIQUE: Portable chest [...] Baldomero Hendrickson 03/05/2023 3:31 PM Dictation workstation: [id number] XR chest 1 view Result Date: 03/05/2023 Interpreted By: Nya Ahmadi, STUDY: XR CHEST 1 VIEW 03/05/2023 7:51 am INDICATION: Signs/Symptoms:confirm line placement COMPARISON: None available. ACCESSION NUMBER(S): [id number] ORDERING CLINICIAN: SERENA GEORGE TECHNIQUE: AP erect view of the chest FINDINGS: Right arm PICC line terminates in the SVC. There is no pneumothorax. The heart, mediastinum, and lungs are normally visualized. Right arm PICC line terminating in SVC without pneumothorax. No acute cardiopulmonary disease. Signed by: Nya Ahmadi 03/05/2023 7:54 AM Dictation workstation: [id number] Assessment and Plan -Abdominal pain/nausea -Median arcuate [...] Continue home iron supplementation GERD: Continue Pepcid [facility] Work Phone: [phone]) 541-808001-31-2024 History and physical note* JAMA Judd - 03/17/2023 11:03 AM EST History Of Present Illness This is a 32-year-old female with past medical history of chronic abdominal pain, PCOS, PUD, depression, GERD, IBS, obesity (status post laparoscopic sleeve gastrectomy in August [address] Ku jptOonz-tp-O gastric bypass 01/29/[address] Kat) and [...] her local hospital and was transferred to [facility] per Dr. Magaña's request. Patient [...] and IV contrast. COMPARISON: None.. ACCESSION NUMBER(S): [id number] ORDERING CLINICIAN: TIFFANIE MENDEZ TECHNIQUE: Oral contrast [...] Corie Garza 03/16/2023 5:46 PM Dictation workstation: [id number] XR chest 1 view Result Date: 03/06/2023 Interpreted By: Sara Zarate, STUDY: XR CHEST 1 VIEW; 03/06/2023 7:32 am INDICATION: Signs/Symptoms:post op COMPARISON: None ACCESSION NUMBER(S): [id number] ORDERING CLINICIAN: JASON FOSTER TECHNIQUE: Frontal and [...] Sara Zarate 03/06/2023 1:48 PM Dictation workstation: [id number] XR chest 1 view Result Date: 03/05/2023 Interpreted By: Baldomero Hendrickson, STUDY: XR CHEST 1 VIEW; 03/05/2023 3:11 pm INDICATION: CLINICAL INFORMATION: Signs/Symptoms:NG tube placement confirmation. COMPARISON: 03/05/2019 at 745 hours ACCESSION NUMBER(S): [id number] ORDERING CLINICIAN: DESMOND TIRADO TECHNIQUE: Portable chest [...] Baldomero Hendrickson 03/05/2023 3:31 PM Dictation workstation: [id number] XR chest 1 view Result Date: 03/05/2023 Interpreted By: Nya Ahmadi, STUDY: XR CHEST 1 VIEW 03/05/2023 7:51 am INDICATION: Signs/Symptoms:confirm line placement COMPARISON: None available. ACCESSION NUMBER(S): [id number] ORDERING CLINICIAN: SERENA GEORGE TECHNIQUE: AP erect view of the chest FINDINGS: Right arm PICC line terminates in the SVC. There is no pneumothorax. The heart, mediastinum, and lungs are normally visualized. Right arm PICC line terminating in SVC without pneumothorax. No acute cardiopulmonary disease. Signed by: Nya Ahmadi 03/05/2023 7:54 AM Dictation workstation: [id number] Assessment and Plan -Abdominal pain/nausea -Median arcuate [...] supplementation GERD: Continue Pepcid documented in this [facility] Work Phone: [phone] 283-641201-31-2024 Nurse Note* Cathy Madera RN - 03/17/2023 10:58 AM EST Patient is ordered NPO this nurse received verbal orders with readback to administer oral medication per Rosa YUN at bedside. Will continue to monitor patient to ensure patient safety. [facility] Work Phone: [phone] Nurse Note* Cathy Madera RN - 03/17/2023 [...] to monitor patient to ensure patient safety. [facility] Work Phone: [phone] Consult note* JAMA Petersen - 03/17/2023 10:29 AM EST Consults Reason For Consult [place] History Of Present Illness Abbey Garcia is a 32 y.o. female presenting with abdominal pain, nausea, vomiting. Patient has past medical history of gastric bypass that was revised with gastric sleeve. She also has a history of median arcuate ligament release with vascular surgery 03/05/2023, [facility]. This was completed per Dr Magaña. [...] Gender dysphoria, GI (gastrointestinal bleed), Hemodialysis status (CMS/HCC), Hernia, internal, History of peritoneal dialysis, HIV [...] Onset Diabetes Mother Jessica Jeterino Hypertension Mother Jessicachristiano Jeterino Cancer Maternal Grandfather Cedrick Kraus COPD [...] and IV contrast. COMPARISON: None.. ACCESSION NUMBER(S): [id number] ORDERING CLINICIAN: TIFFANIE MENDEZ TECHNIQUE: Oral contrast [...] Corie Garza 03/16/2023 5:46 PM Dictation workstation: [id number] XR chest 1 view Result Date: 03/06/2023 Interpreted By: Sara Zarate, STUDY: XR CHEST 1 VIEW; 03/06/2023 7:32 am INDICATION: Signs/Symptoms:post op COMPARISON: None ACCESSION NUMBER(S): [id number] ORDERING CLINICIAN: JASON FOSTER TECHNIQUE: Frontal and [...] Sara Zarate 03/06/2023 1:48 PM Dictation workstation: [id number] XR chest 1 view Result Date: 03/05/2023 Interpreted By: Baldomero Hendrickson, STUDY: XR CHEST 1 VIEW; 03/05/2023 3:11 pm INDICATION: CLINICAL INFORMATION: Signs/Symptoms:NG tube placement confirmation. COMPARISON: 03/05/2019 at 745 hours ACCESSION NUMBER(S): [id number] ORDERING CLINICIAN: DESMOND TIRADO TECHNIQUE: Portable chest [...] Baldomero Hendrickson 03/05/2023 3:31 PM Dictation workstation: [id number] XR chest 1 view Result Date: 03/05/2023 Interpreted By: Nya Ahmadi, STUDY: XR CHEST 1 VIEW 03/05/2023 7:51 am INDICATION: Signs/Symptoms:confirm line placement COMPARISON: None available. ACCESSION NUMBER(S): [id number] ORDERING CLINICIAN: SERENA GEORGE TECHNIQUE: AP erect view of the chest FINDINGS: Right arm PICC line terminates in the SVC. There is no pneumothorax. The heart, mediastinum, and lungs are normally visualized. Right arm PICC line terminating in SVC without pneumothorax. No acute cardiopulmonary disease. Signed by: Nya Ahmadi 03/05/2023 7:54 AM Dictation workstation: [id number] Assessment/Plan NV, Epigastric Pain (LFTs are normal. [...] in the presence of Dr. Jah Nguyen. [facility] Work Phone: [phone] Nurse Note* Cathy Madera RN - 03/17/2023 [...] to monitor patient to ensure patient safety. [facility] Work Phone: [phone] Consult note* Lizz Brunson APRN-BETH - 03/16/2023 5:09 PM EST Consults Reason For Consult Medical management History Of Present Illness Abbey Garcia is a 32 y.o. female presenting with abdominal pain. 32-year-old female presents to [facility] for chief complaint of abdominal pain, [...] emergency room close to her home near [place], [place] for further evaluation and was promptly transferred to [facility] for further evaluation and treatment. The [...] medical history of MARSHAL (acute kidney injury) ([facility]/HCC), Autoimmune disorder ([facility]/HCC), Bipolar disorder ([facility]/HCC), BPH (benign prostatic hyperplasia), Cerebral aneurysm, Cervical cancer ([facility]/HCC), Cervical disc disease, Chronic kidney disease, CKD (chronic kidney disease), Cognitivedecline, Crohn's disease ([facility]/HCC), Dementia ([facility]/HCC), Dysphagia, Endometrial cancer ([facility]/HCC), Esophageal cancer ([facility]/HCC), Esophageal disease, ESRD (end stage renal disease) ([facility]/HCC), Fibromyalgia, primary, Fractures, Gastric cancer ([facility]/HCC), Gender dysphoria, GI (gastrointestinal bleed), Hemodialysis status ([facility]/HCC), Hernia, internal, History of peritoneal dialysis, HIV disease ([facility]/HCC), Immunocompromised ([facility]/HCC), Liver disease, Lumbar disc disease, Mastocytosis, MS (multiple sclerosis) ([facility]/HCC), Muscular dystrophy ([facility]/HCC), Myasthenia gravis ([facility]/HCC), Neuromuscular disorder ([facility]/HCC), Ovarian cancer ([facility]/HCC), Pancreatitis, Peptic ulcer disease, Prematurity, PTSD (post-traumatic stress disorder), Schizophrenia (CMS/HCC), Seizure disorder ([facility]/HCC), Spinal stenosis, Substanceaddiction ([facility]/HCC), Syncope, TIA (transient ischemic attack), Ulcerative colitis [...] Diabetes Mother Jessica Phipps Hypertension Mother Jessica Jeterino Cancer Maternal Grandfather [...] consult. Will continue to follow. JAMA Smith [facility] Work Phone: [phone]) 395-575101-30-2024 Emergency department Note* Grecia Oates RN - 03/16/2023 5:00 PM EST Pt is requesting pain medication. MD Barker notified. Grecia Oates RN 03/16/231700 [facility] Work Phone: [phone] Emergency department Note* Grecia Oates RN - [...] 03/16/2023 1:46 PM EST Pt arrived from [place] due to abdominal pain due to celiac [...] dictation software, please excuse any errors in label machine operator. Melisa Barker MD 03/16/23 1920 * HENNY Miller-Elroy - 03/16/2023 1:37 PM EST HPI Chief Complaint Patient presents with Abdominal Pain Patient is a 32-year-old female history of gastric bypass surgery, median arcuate ligament syndromewith vascular surgery performed on March 05 transferred to [facility] from [facility] in [place] for abdominal pain and nausea vomiting. Patient states the abdominal pain is mid abdominal, no signs of surgical scar infection, states she has been unable to tolerate p.o. intake for 2 days now. She states she feels a burning cramping sensation around where her gastric pouch was placed. ER spoke with Dr. Magaña vascular surgeon who requested for patient to be sent to [facility] ER for further evaluation. Patient denies recent [...] Tue Mar 16, 2023 142 Vascular surgery SALES COUNSELOR wanted to put in the imaging study [...] at this time. He spoke with Tiffanie SALES COUNSELOR for vascular surgery. He epic chatted me [...] recognition software. Please excuse any errors of label machine operator. My thought process and reason for plan [...] from: Patient, EMS, attending ER physician at [facility] Social Determinants of Health considered during this visit: Lives independently Medications given during visit: Medications dextrose 5%-0.45 % sodium chloride infusion (150 mL/hr intravenous New Bag 03/16/23 1265) albuterol 2.5 mg /3 mL (0.083 %) [...] 5 mg (5 mg intravenous Given 03/16/23 0638) Diagnostic/tests Labs Reviewed CBC WITH AUTO DIFFERENTIAL [...] and has been validated for use at [facility]. Negative results do not preclude COVID-19 infections or Influenza A/B infections, and should not be used as the sole basis for diagnosis, treatment, or other management decisions. If Influenza A/B and RSV PCR results are negative, testing for Parainfluenza virus, Adenovirus and Metapneumovirus is routinely performed for [facility] pediatric oncology and intensive care inpatients, and [...] Dr. Magaña transferred ER to ER from [place] for further evaluation of her abdominal pain [...] on patient's status. Linda Ngo RN 03/17/23 0864 documented in this [facility] Work Phone: [phone]) 201-364001-30-2024 Emergency department Note* Grecia Oates RN - 03/16/2023 3:54 PM EST Pt has not been able to sustain orthostatic VS. She is not able to stand at this time. Grecia Oates RN 03/16/23 8027 [facility] Work Phone: [phone] Note* Significant Event - Channing Oconnor DO - 03/16/2023 3:02 PM EST Called to admit this patient for abdominal pain. Going to review, this patient has a ongoing history since 2019 of abdominal pain with considerable notes from [facility], and has a history gastric bypass, cholecystectomy, sphincterectomy, and recent median arcuate ligament release on March 05 with vascular surgery. [facility] and sent home, [...] issue which will be best done at [facility] either as inpatient or outpatient, where she has ongoing work, or is a postoperative situation that has been discussed multiple times with the primary operating service (and I have discussed with Tiffanie Mendez CNP with their service and there appears to be a good plan for imaging studies), and can ba admitted by their service). 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 She [place] be here for vascular surgery? Pt is A&O x3. States terrible pain in abdomen that doesn't go away. C/O nausea, vomiting, headaches, body chills. [facility] Work Phone: [phone] 132-866401-30-2024 Emergency department Note* Linda Ngo RN - 03/16/2023 1:37 PM EST Into assess patient. Patient awake and A&OX4. Patient complains of incisional pain and requested Percocet for relief, rates pain 7/10. Assessed incisional wound on abdomen, incision well approximated, dry and scabbed, no drainage noted. Patient admits to surgery On 03/05/23 for MALS. Medicated with percocet as requested. Linda Ngo RN 03/17/23 08 [facility]01-30-2024 Emergency department Note* Linda Ngo RN - 03/16/2023 1:37 PM EST Report called to DEE Ortiz updated on patient's status. Linda Ngo RN 03/17/23825 [facility] Work Phone: [phone] 106-459201-30-2024 Physician Emergency department Note* Melisa Barker MD [...] dictation software, please excuse any errors in label machine operator. Melisa Barker MD 03/16/231919 [facility] Work Phone: [phone] Physician Emergency department Note* HENNY Miller-Elroy - 03/16/2023 1:37 PM EST HPI Chief Complaint Patient presents with Abdominal Pain Patient is a 32-year-old female history of gastric bypass surgery, median arcuate ligament syndromewith vascular surgery performed on March 05 transferred to [facility] from [facility] in [place] for abdominal pain and nausea vomiting. Patient states the abdominal pain is mid abdominal, no signs of surgical scar infection, states she has been unable to tolerate p.o. intake for 2 days now. She states she feels a burning cramping sensation around where her gastric pouch was placed. ER spoke with Dr. Magaña vascular surgeon who requested for patient to be sent to [facility] for further evaluation. Patient denies recent fever or chills. No other acute complaints at this time. [place] Coma Scale Score: 15 Patient History Past [...] Tue Mar 16, 2023 1421 Vascular surgery SALES COUNSELOR wanted to put in the imaging study [...] recognition software. Please excuse any errors of label machine operator. My thought process and reason for plan [...] from: Patient, EMS, attending ER physician at [facility] Social Determinants of Health considered during [...] 5 mg (5 mg intravenous Given 03/16/23 4292) Diagnostic/tests Labs Reviewed CBC WITH AUTO DIFFERENTIAL [...] and has been validated for use at [facility]. Negative results do not preclude COVID-19 infections or Influenza A/B infections, and should not be used as the sole basis for diagnosis, treatment, or other management decisions. If Influenza A/B and RSV PCR results are negative, testing for Parainfluenza virus, Adenovirus and Metapneumovirus is routinely performed for [facility] pediatric oncology and intensive care inpatients, and [...] Dr. Magaña transferred ER to ER from [place] for further evaluation of her abdominal pain [...] Procedure Procedures Leatha Paul PA-C 03/16/[address] [facility] Work Phone: [phone]) [phone] Hospital Discharge instructions Patient Education 03/15/2023 18:18:58 [...] Follow these instructions at home: Medicines Take iohe-ynx-asgwqyg and prescription medicines only as told by [...] Watch your condition for any changes. Take cgxd-yhi-iucpfwn and prescription medicines only as told by [...] provider. Document Revised: 03/22/2020 Document Reviewed: 06/12/2019 [employer] Patient Education 2022 [employer]. Follow Up Care 03/15/2023 11:45:15 With:Your surgeon Dr. Magaña Address:Unknown When:03/16/2023 17:30:59 [facility]01-29-2024 Evaluation + Plan noteExtracted from: Title:ED [...] 09:45:00 AM Scheduled Provider:Nasim JOHNSON, Rajni Ballesteros Location:[facility] Appointment Type:URO Office Visit Future Scheduled Tests Radiology* US Renal 06/10/22 [facility]01-24-2024 Hospital Discharge instructions* Discharge Instr - Diet* Yue German RN - 03/10/2023 3:19 PM EST Regular Diet [facility]: [phone] History of Present illness Narrative* Keesha Jack [...] Pt cleared for dc. Updates ent to [facility] who the pt has already been active with, F2F, dc summary and AVS sent via [employer] in 1-2 days. Pt ok to dc. 03/10/23 5098 Discharge Planning Patient expects to be discharged to: [facility] * Tiffanie Mendez APRN-LABEL FOLDER - 03/10/2023 11:32 AM EST Images from [...] p.o. Valium and Percocet sent to [facility] pharmacy - Follow-up orders placed for 1 month virtual appoint with Dr. Magaña - Work note faxed to her work as well as uploaded into [employer] - Cleared for discharge from vascular standpoint. [...] LE Dressing: Yes LE Dressing Adaptive Equipment: R And D Lab Technician, Sock aide Pants Level of Assistance: Setup, [...] functional mobility a short household distance at [facility] for safety with close S. Pt demonstrating fair+/good standing balance with increased fatigue noted throughout task Outcome Measures:[facility] Daily Activity Putting on and taking off [...] via laparotomy (03/05). Spoke with RN and LABEL FOLDER regarding plans for consult. Theplan is for [...] diphenhydramine-zinc acetate cream, , Topical, TID PRN, Aliciaradha Toro APRN-BETH enoxaparin (Lovenox) syringe 40 mg, 40 mg, subcutaneous, Daily, Chrissy Harris PA-C, 40 mg at 03/09/23 0821 escitalopram (Lexapro) tablet 20 mg, 20 mg, oral, Daily, Chrissy Harris PA-C, 20 mg at 03/09/23 0821 famotidine (Pepcid) tablet 20 mg, 20 mg, oral, BID, 20 mg at 03/09/23 0821 OR famotidine PF (Pepcid) injection 20 mg, 20 mg, intravenous, BID, Chrissy Harirs PA-C, 20 mg at 03/06/23 0854 ferrous sulfate (325 mg ferrous sulfate) tablet 1 tablet, 1 tablet, oral, Daily with breakfast, Chrissy Harris PA-C, 1 tablet at 03/09/23 0820 glucagon (Glucagen) injection 1 mg, 1 mg, intramuscular, q15 min PRN, Chrissy Harris PA-C HYDROmorphone (Dilaudid) injection 0.5 mg, 0.5 mg, intravenous, q4h PRN, Tiffanie Mendez, SLIM-BETH, 0.5 mg at 03/09/23 1338 hydrOXYzine HCL (Atarax) tablet 25 mg, 25 mg, oral, Daily PRN, Chrissy Harris PA-C hydrOXYzine HCL (Atarax) tablet 25 mg, 25 mg, oral, q6h PRN, Alicia Toro, SLIM-BETH, 25 mg at 03/08/23 1306 insulin lispro [...] Today's Date: 03/09/2023 Time Calculation Start Time: 142 Stop Time: 1444 Time Calculation (min): 23 [...] LE Dressing: Yes LE Dressing Adaptive Equipment: R And D Lab Technician, Sock aide Pants Level of Assistance: Setup, [...] advice provided to abside by precautions Outcome Measures:[facility] Daily Activity Putting on and taking off [...] Understanding, Demonstrated Understanding ADL Training, taught by FLAQUTIO Knight at 03/09/2023 3:01 PM. Learner: Patient [...] by discharge. Outcome: Progressing * Alicia Toro, SLIM-BETH - 03/09/2023 10:50 AM EST bAbey Garcia is a 32 [...] INDICATION: Signs/Symptoms:post op COMPARISON: None ACCESSION NUMBER(S): [id number] ORDERING CLINICIAN: JASON FOSTER TECHNIQUE: Frontal and [...] Sara Zarate 03/06/2023 1:48 PM Dictation workstation: [id number] Physical Exam Constitutional: Appearance: Normal appearance. HENT: [...] steps, 1 rail, non-reciprocating pattern. Outcome Measures: [facility] Basic Mobility Turning from your back to [...] to continue ambulating her room in the nemours -Senna discontinued due to patient's diarrhea. -Continue [...] Morrell - 03/09/2023 9:24 AM EST [facility] pt is already active with them and are able to continue to provide Rn for tpn and added PT. 03/09/23 0923 Discharge Planning Patient expects to be discharged to: [facility] * ILIANA Morrell - 03/08/2023 2:52 PM EST ILIANA met with pt at bedside. Pt lives in a house with her and 3 kids in two story house with first floor setup. 5 steps to enter the house. Pt drives, works, independent for mobility. Pt wears glasses. Only other medical supplies at home are for TPN. Pts PCP is Dr Jaquan Morrow with [facility], prescriptions filled through [facility] in [place]. Discussion around dc planning needs with the pt stating she will probably benefit from home health PT. Referrals sent to homecare agencies that service where she lives, these agencies include [facility], [address], [facility], [facility], [facility], await responses. 03/08/23 1452 Discharge Planning Patient expects to be discharged to: Home with [facility] * Anam Khoury, PT - 03/08/2023 1:16 [...] prior to attempting to sit Outcome Measures: [facility] Basic Mobility Turning from your back to [...] required d/t increase pain and fatigue Outcome Measures:[facility] Daily Activity Putting on and taking off [...] by discharge. Outcome: Progressing * Alicia Toro APRN-LABEL FOLDER - 03/08/2023 11:04 AM EST Abbey Garcia [...] INDICATION: Signs/Symptoms:post op COMPARISON: None ACCESSION NUMBER(S): [id number] ORDERING CLINICIAN: JASON FOSTER TECHNIQUE: Frontal and [...] Sara Zarate 03/06/2023 1:48 PM Dictation workstation: [id number] Physical Exam Constitutional: Appearance: Normal appearance. HENT: [...] Intake/Output Summary (Last 24 hours) at 03/07/2023 0949 Last data filed at 03/07/2023 0546 Gross [...] INDICATION: Signs/Symptoms:post op COMPARISON: None ACCESSION NUMBER(S): [id number] ORDERING CLINICIAN: JASON FOSTER TECHNIQUE: Frontal and [...] Sara Zarate 03/06/2023 1:48 PM Dictation workstation: [id number] Physical Exam Constitutional: Appearance: Normal appearance. HENT: [...] due to increased fatigue levels. Outcome Measures: [facility] Basic Mobility Turning from your back to [...] INDICATION: Signs/Symptoms:post op COMPARISON: None ACCESSION NUMBER(S): [id number] ORDERING CLINICIAN: JASON FOSTER TECHNIQUE: Frontal and [...] Sara Zarate 03/06/2023 1:48 PM Dictation workstation: [id number] Physical Exam Constitutional: General: She is not [...] proph Karma Sharpe MD * Jason Foster, SUPPORT SERVICES REP-LABEL FOLDER - 03/06/2023 1:57 PM EST Abbey Garcia [...] 50 mg, oral, BID Continuous medications potassium nxhctzfi-P6-4.9%NaCl, 125 mL/hr, Last Rate: 125 mL/hr (03/06/23 [...] 03/05, impaired ADL's Referred By: Jason Foster, SUPPORT SERVICES REP-LABEL FOLDER Past Medical History Relevant to Rehab: MALS, [...] recliner for comfort Prior Function: Level of Bitely: Independent with ADLs and functional transfers, Independent with homemaking with ambulation ADL Assistance: Independent Homemaking Assistance: Independent Ambulatory Assistance: Independent 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) Hand Dominance: Right Prior Function Comments: pt was active and driving in community; 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 [employer] ADL: Eating Assistance: Independent Grooming Assistance: Moderate [...] Sensation Comment: BUE's WFL Strength: Strength Comments: TOI's WFL Coordination: Coordination Comment: TOI's WFL Hand Function: Hand Function Gross Grasp: Functional Coordination: Functional Outcome Measures: [facility] Daily Activity Putting on and taking off [...] Prior Function Per Pt/Caregiver Report Level of Bitely: Independent with ADLs and functional transfers, Independent with homemaking with ambulation Receives Help From: (spouse and mother) ADL Assistance: Independent Ambulatory Assistance: Independent Prior Function Comments: pt was active and driving in community; 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 Learner: Patient Readiness: Eager Method: Explanation Response: Verbalizes Understanding * Chrissy Harris PA-C - 03/06/2023 7:28 AM EST [facility] Critical Care Medicine Date: 03/06/2023 Patient: [...] when vascular surgery gives orders to remove. 1/20: Patient states she is having 7/10 pain [...] the morning. Take before meals. 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 prescription ondansetron ODT (Zofran-ODT) 4 mg disintegrating [...] Grandmother Diabetes Paternal Grandmother Grandmother Asthma Brother [facility] Medications: potassium imbrcrvf-P5-3.9%NaCl, 125 mL/hr, Last Rate: 125 mL/hr (03/06/23 [...] mg, 20 mg, intravenous, BID, Baldomero Richards, [facility], 20 mg at 03/05/23 214 ferrous sulfate (325 mg ferrous sulfate) tablet [...] ICU skin protocol Ethics/Code Status: Full code Foreign Languages Department Chair: DVT Prophylaxis: Lovenox GI Prophylaxis: pepcid Bowel Regimen: miralax Diet: Clear liquids CVC: none Yoli: yes - left radial Long: yes Restraints: no Dispo: ICU Critical Care Time: 40 minutes Chrissy Harris PA-C documented [facility] Work Phone: 1(816) 307-597901-24-2024 Nurse Note* Edilia Darby RN - 03/10/2023 11:57 AM EST Patient with Rt arm dual lumen picc, dressing D&I, red lumen in use without difficulty, purple lumen flushes easily and with positive blood return, curos cap applied. [facility]01-24-2024 Nurse Note* Edilia Darby RN - 03/10/2023 [...] scanned for over 650cc, pt straight cath [id number] * Olga Paz RN - 03/07/2023 5:47 [...] will reach out to vascular doctor and SALES COUNSELOR for the order. * Ron Mancera RN - 03/05/2023 1:58 PM EST Informed ROOFING APPLICATOR to ask Dr. Magaña for admit orders prior to transfer. documented in this [facility] Work Phone: 1(104) 342-816001-24-2024 Nurse Note* Nadia Zee RN - 03/10/2023 11:36 AM EST Long catheter removed [facility]01-24-2024 Nurse Note* Eileen Austin RN - 03/10/2023 12:14 AM EST Blood sugar 79 gave patient hailee crackers and pudding. Complained /10 pain percocet was given [facility]01-23-2024 Consult note* Jin Vargas MD - [...] Irritable bowel syndrome, Median arcuate ligament syndrome ([facility]/HCC), PCOS (polycystic ovarian syndrome), PONV (postoperative nausea and vomiting), PUD (peptic ulcer disease), and Shortness of breath. She has no past medical history of MARSHAL (acute kidney injury) ([facility]), Autoimmune disorder ([facility]), Bipolar disorder ([facility]), BPH (benign prostatic hyperplasia), Cerebral aneurysm, Cervical cancer ([facility]), Cervical disc disease, Chronic kidney disease, CKD (chronic kidney disease), Cognitivedecline, Crohn's disease ([facility]), Dementia ([facility]), Dysphagia, Endometrial cancer ([facility]), Esophageal cancer ([facility]), Esophageal disease, ESRD (end stage renal disease) ([facility]), Fibromyalgia, primary, Fractures, Gastric cancer ([facility]), Gender dysphoria, GI (gastrointestinal bleed), Hemodialysis status ([facility]), Hernia, internal, History of peritoneal dialysis, HIV disease ([facility]), Immunocompromised ([facility]), Liver disease, Lumbar disc disease, Mastocytosis, MS (multiple sclerosis) ([facility]), Muscular dystrophy ([facility]), Myasthenia gravis ([facility]), Neuromuscular disorder ([facility]), Ovarian cancer ([facility]), Pancreatitis, Peptic ulcer disease, Prematurity, PTSD (post-traumatic stress disorder), Schizophrenia ([facility]), Seizure disorder ([facility]), Spinal stenosis, Substanceaddiction ([facility]), Syncope, TIA (transient ischemic attack), Ulcerative colitis ([facility]), Urinary tract infection, Uterine cancer ([facility]), or Vertigo. Surgical History She has a [...] care of this patient. Jin Vargas MD [facility] Work Phone: 1(561) 366-252001-23-2024 Consult note* Jin Vargas MD - 03/09/2023 [...] Irritable bowel syndrome, Median arcuate ligament syndrome ([facility]/HCC), PCOS (polycystic ovarian syndrome), PONV (postoperative nausea and vomiting), PUD (peptic ulcer disease), and Shortness of breath. She has no past medical history of MARSHAL (acute kidney injury) ([facility]), Autoimmune disorder ([facility]), Bipolar disorder ([facility]), BPH (benign prostatic hyperplasia), Cerebral aneurysm, Cervical cancer ([facility]), Cervical disc disease, Chronic kidney disease, CKD (chronic kidney disease), Cognitivedecline, Crohn's disease ([facility]), Dementia ([facility]), Dysphagia, Endometrial cancer ([facility]), Esophageal cancer ([facility]), Esophageal disease, ESRD (end stage renal disease) ([facility]), Fibromyalgia, primary, Fractures, Gastric cancer ([facility]), Gender dysphoria, GI (gastrointestinal bleed), Hemodialysis status ([facility]), Hernia, internal, History of peritoneal dialysis, HIV disease ([facility]), Immunocompromised ([facility]), Liver disease, Lumbar disc disease, Mastocytosis, MS (multiple sclerosis) ([facility]), Muscular dystrophy ([facility]), Myasthenia gravis ([facility]), Neuromuscular disorder ([facility]), Ovarian cancer ([facility]), Pancreatitis, Peptic ulcer disease, Prematurity, PTSD (post-traumatic stress disorder), Schizophrenia ([facility]), Seizure disorder ([facility]), Spinal stenosis, Substanceaddiction ([facility]), Syncope, TIA (transient ischemic attack), Ulcerative colitis [...] 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 She was seen at [facility] by Dr. Kat and underwent an [...] She had a CT angiogram recently at [facility] but this is not available for [...] This is with Dr. Ramos over the [facility]. Currently any oral intake will result in [...] 650 mg, rectal, q4h PRN, Jason Foster, SUPPORT SERVICES REP-LABEL FOLDER albuterol 2.5 mg /3 mL (0.083 %) [...] mg, 20 mg, intravenous, BID, Baldomero Richards, [facility], 20 mg at 03/06/23 0854 ferrous sulfate [...] 1 tablet, oral, q4h PRN, Jason Mckeon SUPPORT SERVICES REP-LABEL FOLDER polyethylene glycol (Glycolax, Miralax) packet 17 g, [...] Follow up Comment: 03/09/[address] Work Phone: [phone] Nurse Note* Yue Ferris RN - 03/09/2023 2:22 PM EST Upon rounding right upper arm dual lumen PICC with current CHG dressing dry and intact. One lumen in use, one with brisk blood return and flushes easily, Curos cap intact. [facility]01-22-2024 Plan of care note* Care Plan - Danny Middleton RN - 03/08/2023 11:21 PM EST The patient's goals for the shift include rest The clinical goals for the shift include pain will be controled overnight. [facility]01-22-2024 Miscellaneous Notes* Care Plan - Danny Middleton [...] Procedures Release Median Arcuate Ligament by LAPAROTOMY [id number] - [place] UNLISTED PX ABDOMEN MUSCULOSKELETAL SYSTEM Surgeons * Sherry Magaña - Primary Resident/Fellow/Other Data Consultant: Surgeon(s) and Role: Procedure Summary Anesthesia: General ASA: III Anesthesia Staff: Anesthesiologist: Serena George DO AUTO SERVICE DISPATCHER: Maricruz Yip APRN-THOMAS Estimated Blood Loss: 2mL [...] EXAM Sherry Magaña MD 03/05/2023 1125 Staff: Pickup Driver: Mary Mccabe RN; Natalie Young RN Scrub Person: Nadia Escobedo; Thu Ford Drains and/or Catheters: NG/OG/Feeding Tube NG - [place] sump 16 Fr Right nostril (Active) Tube [...] MEMBRANE, SEPRAFILM, 5 X 6 IN - [id number] Implanted Findings: heavily inflammed ligamentous tissues and [...] entire procedure. Sherry Magaña documented in this [facility] Work Phone: 1(789) 654-839401-22-2024 Plan of care note* Care Plan - [...] Promote/optimize nutrition Outcome: Progressing Flowsheets (Taken 03/08/2023 5737) Promote/optimize nutrition: Monitor/record intake including meals Consume [...] meds throughout the shift Outcome: Progressing . [facility]01-22-2024 Plan of care note* Care Plan - Olga Paz RN - 03/08/2023 2:27 AM EST The patient's goals for the shift include rest The clinical goals for the shift include increase activity Over the shift, the patient did not make progress toward the following goals. Barriers to progression include weak/pain. Recommendations to address these barriers include administer medications/interventions as ordered. [facility] Work Phone: 1(628) 261-594001-22-2024 Nurse Note* Olga Paz RN - 03/08/2023 1:[address] Oconnor notified of retained urine. Order to insert long catheter. 16F long catheter placed, clear yellow urine return. Pt tolerated well. [facility]01-22-2024 Nurse Note* Olga Paz RN - 03/08/2023 12:48 AM EST Pt unable to urinate but continues to have an urge to do so. Bladder scan performed with 1152ml found. Page out to hospitalist. [facility] Work Phone: 1([phone]) 430-504201-21-2024 Nurse Note* Nadia Zee RN - 03/07/2023 5:09 PM EST Pt with 10cc urine output since long removed, bladder scanned for over 650cc, pt straight cath [id number] [facility] Work Phone: [phone]) 998-308601-21-2024 Plan of care note* Care Plan - Nadia Zee RN - 03/07/2023 8:50 AM EST The patient's goals for the shift include rest The clinical goals for the shift include increase activity Over the shift, the patient did not make progress toward the following goals. Barriers to progression include . Recommendations to address these barriers include . [facility] Work Phone: [phone] 887-294501-21-2024 Nurse Note* Olga Paz RN - 03/07/2023 5:47 AM EST Long catheter removed per order. Pt tolerated well [facility] Work Phone: 1([phone] 205-325401-20-2024 Plan of care note* Care Plan - Olga Paz RN - 03/06/2023 8:57 PM EST The patient's goals for the shift include rest The clinical goals for the shift include increase activity Over the shift, the patient did not make progress toward the following goals. Barriers to progression include weak/pain. Recommendations to address these barriers include encouragement/administer medications/interventions as ordered. [facility] Work Phone: [phone]) 941-806001-20-2024 Nurse Note* Vic Gilliland RN - 03/06/2023 4:22 PM EST Seeking clarification of appropriate disposition of patient and possible transfer to SDU. Patient understands possibility of transfer. 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 She was seen at [facility] by Dr. Kat and underwent an [...] She had a CT angiogram recently at [facility] but this is not available for [...] This is with Dr. Ramos over the [facility]. Currently any oral intake will result in [...] mg, 20 mg, intravenous, BID, Baldomero Richards, [facility], 20 mg at 03/06/23 0854 ferrous sulfate [...] Needed?: 3-5 days Follow up Comment: 03/09/23 [facility]01-20-2024 Plan of care note* Care Plan [...] Recommendations to address these barriers include steroids. [facility] Work Phone: [phone] 550-179901-20-2024 Nurse Note* Vic Gilliland RN - 03/06/2023 9:01 AM EST Returned to bed with assist of two. Head of bed elevated 45 degrees. [facility] Work Phone: 1([phone]) 880-727201-19-2024 Nurse Note* Ron Mancera RN - 03/05/2023 4:[address] Magaña at bedside, informed of the muscle spasm and administering PRN diazepam. No new orders placed. Plan to remove NGT tomorrow morning. [facility] Work Phone: [phone] 388-893901-19-2024 Plan of care note* Care Plan - [...] 1549 by Ron Mancera RN Outcome: Progressing [facility] Work Phone: [phone] 908-844201-19-2024 History and physical note* Desmond Tirado PA-C - 03/05/2023 2:49 PM EST [facility] Critical Care Medicine Date: 03/05/2023 Patient: [...] the morning. Take before meals. 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 prescription ondansetron ODT (Zofran-ODT) 4 mg disintegrating [...] Elan Artino Anesthesia related problems Paternal Grandfather [facility] Hospital[facility] COPD Paternal Grandmother Grandmother Diabetes Paternal Grandmother Grandmother Asthma Brother [facility] Medications: Current Facility-Administered Medications: acetaminophen (Tylenol) tablet [...] ICU skin protocol Ethics/Code Status: Full code Foreign Languages Department Chair: DVT Prophylaxis: none GI Prophylaxis: pepcid Bowel Regimen: miralax Diet: NPO CVC: none Mccoy: yes - left radial Long: yes Restraints: no Dispo: ICU Critical Care Time: 60 minutes spent in preparing to see patient (I.e.labs,imaging, etc.), documentation, discussion plan of care with patient/family/caregiver, and/ or coordination of care with multidisciplinary team including the attending. Time does not include completion of procedure time. Desmond Tirado PA-C Pulmonology & Critical Care [facility] Work Phone: [phone] History and physical note* Desmond Tirado PA-C - 03/05/2023 2:49 PM EST [facility] Critical Care Medicine Date: 03/05/2023 Patient: [...] the morning. Take before meals. 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 prescription ondansetron ODT (Zofran-ODT) 4 mg disintegrating [...] Grandmother Diabetes Paternal Grandmother Grandmother Asthma Brother [facility] Medications: Current Facility-Administered Medications: acetaminophen (Tylenol) tablet 650 mg, 650 mg, oral, q4h PRN OR acetaminophen (Tylenol) oral liquid 650 mg, 650 mg, oral, q4h PRN OR acetaminophen (Tylenol) suppository 650 mg, 650 mg, rectal, q4h PRN, Jason Foster, SUPPORT SERVICES REP-LABEL FOLDER HYDROmorphone (Dilaudid) injection 0.5 mg, 0.5 mg, [...] ICU skin protocol Ethics/Code Status: Full code Foreign Languages Department Chair: DVT Prophylaxis: none GI Prophylaxis: pepcid Bowel [...] Desmond Tirado PA-C Pulmonology & Critical Care [facility] * Sherry Magaña MD - 03/05/2023 [...] 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 She was seen at [facility] by Dr. Kat and underwent an [...] She had a CT angiogram recently at [facility] but this is not available for [...] This is with Dr. Ramos over the [facility]. Currently any oral intake will result in [...] to review the CT angiogram done at [facility]. She is going to undergo a [...] Might get UGIS. Will discuss with Dr. Decaon Kat. documented in this [facility] Work Phone: [phone] 413-286101-19-2024 Nurse Note* Ron Mancera RN - 03/05/2023 2:01 PM EST Patient in the unit from PACU, unable to [facility]. No admit order yet. PACU Rns saw the warning note when trying to transfer the patient without admit orders. PACU staff will reach out to vascular doctor and SALES COUNSELOR for the order. [facility] Work Phone: 1(533) 680-703001-19-2024 Nurse Note* Ron Mancera RN - 03/05/2023 1:58 PM EST Informed ROOFING APPLICATOR to ask Dr. Magaña for admit orders prior to transfer. [facility] Work Phone: [phone]) 291-666501-19-2024 Note* Perioperative Nursing Note - Samantha Fields RN - 03/05/2023 1:52 PM EST Patient meets PACU discharge criteria. [facility]01-19-2024 Note* Perioperative Nursing Note - Samantha Fields RN - 03/05/2023 1:07 PM EST Patient to PACU bay 7 with left radial art line in place. Zeroed and waveforms appropriate. Clean/dry and intact. VSS. [facility] Work Phone: [phone] 126-890501-19-2024 Note* Op Note - Sherry Magaña MD [...] Procedures Release Median Arcuate Ligament by LAPAROTOMY [id number] - [place] UNLISTED PX ABDOMEN MUSCULOSKELETAL SYSTEM Surgeons * Sherry Magaña - Primary Resident/Fellow/Other Data Consultant: Surgeon(s) and Role: Procedure Summary Anesthesia: General ASA: III Anesthesia Staff: Anesthesiologist: Serena George DO AUTO SERVICE DISPATCHER: Maricruz Yip APRN-THOMAS Estimated Blood Loss: 2mL [...] EXAM Sherry Magaña MD 03/05/2023 1125 Staff: Pickup Driver: Mary Mccabe RN; Natalie Young RN Scrub Person: Nadia Escobedo; Thu Ford Drains and/or Catheters: NG/OG/Feeding Tube NG - [place] sump 16 Fr Right nostril (Active) Tube [...] MEMBRANE, SEPRAFILM, 5 X 6 IN - [id number] Implanted Findings: heavily inflammed ligamentous tissues and [...] scrubbed for the entire procedure. 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 She was seen at [facility] by Dr. Kat and underwent an [...] She had a CT angiogram recently at [facility] but this is not available for [...] This is with Dr. Ramos over the [facility]. Currently any oral intake will result in [...] to review the CT angiogram done at [facility]. She is going to undergo a [...] UGIS. Will discuss with Dr. Deacon Kat. [facility] Work Phone: 1(188) 397-220712-14-2023 NoteHNO ID: [id number] Author: Rylee Thacker APRN.LABEL FOLDER Service: ? Author Type: Nurse Practitioner Type: Progress Notes Filed: 01/28/2023 3:12 PM Note Text: [facility]oint[facility]12-[facility]-2023 Miscellaneous Notes* Telephone Encounter - Laura Rodas RN - 01/18/2023 9:20 AM EST Call placed to [facility] to confirm received potassium orders for (K-2.9). No answer and left message for Thea pick up from [facility]. (Do not feel Dr. Kat is managing TPN as well) * Telephone Encounter - Dorita Manning - 01/15/2023 11:47 AM EST [facility] called regarding potassium level. Level was 2.9. Patient already on max dose of potassium allowed with her TPN. They are asking for recommendations # [phone] documented in this encounterCorey Hospital11-27-2023 Miscellaneous Notes* Telephone Encounter - Joaquín Garza RN - 01/11/2023 3:40 PM EST The office did not attempt to reach the patient. * Telephone Encounter - Linda Rebollar RN - 01/11/2023 2:59 PM EST Pt calling States according to her phone it looks like she missed a call from office No message left per patient Asking if office called, if so ok to call her back [phone] Ok to leave a message documented in this encounterCorey Hospital11-27-2023 Miscellaneous Notes* Telephone Encounter - Fern Jonas LPN - 01/11/2023 10:49 AM EST Surg request placed, pt aware, instructions given verbally and via mychart, all questions and concerns addressed. documented in this encounterCorey Hospital11-27-2023 NoteHNO ID: [id number] Author: Fern Jonas LPN Service: ? 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 Vic Ramos MD January 08, 2023 documented in this encounterCorey Hospital11-22-2023 Miscellaneous Notes* Telephone Encounter - Clarence [...] to pain for visit. documented in this encounterCorey Hospital11-16-2023 Hospital Discharge instructions Patient Education 12/31/2022 [...] oral rehydration solution (ORS). This is an sccs-iub-vliiuyi medicine that helps return your body to [...] drinks, sports drinks, and soda. Eat bland, jsrw-yd-ggdkci foods in small amounts as you are able. These foods include bananas, applesauce, rice, lean meats, toast, and crackers. Avoid alcohol. Avoid spicy or fatty foods. Medicines Take ywvj-fbt-vhmqhrw and prescription medicines only as told by your health care provider. If you were prescribed an antibiotic medicine, take it as told by your health care provider. Do notstop using the antibiotic even if you start to feel better. General instructions Wash your hands often using soap and water. If soap and water are not available, use a hand apparel designer. Others in the household should wash their [...] soap and water are not available, usehand apparel designer. Contact a health care provider if your diarrhea gets worse or you have new symptoms. Get help right away if you have signs of dehydration. This information is not intended to replace advice given to you by your health care provider. Make sure you discuss any questions you have with your health care provider. Document Revised: 08/13/2021 Document Reviewed: 08/13/2021 [employer] Patient Education 2022 [employer]. 12/31/2022 16:02:59 Abdominal Pain, Adult Abdominal Pain, [...] Follow these instructions at home: Medicines Take skhz-mpj-iabnvvo and prescription medicines only as told by [...] Watch your condition for any changes. Take wwvt-xyp-gwypcam and prescription medicines only as told by [...] provider. Document Revised: 03/22/2020 Document Reviewed: 06/12/2019 [employer] Patient Education 2022 [employer]ogenesis. Follow Up Care 12/31/2022 12:31:54 With:Jaquan Morrow Address: [address] [place], [place] [id number] Business (1) When:01/03/2023 15:35:16 [facility]11-16-2023 Evaluation + Plan noteExtracted from: Title:ED [...] Date:01/20/2023 10:00:00 AM Scheduled Provider:Rajni Rouse MD Location:[facility] Appointment Type:URO Office Visit Future Scheduled Tests Radiology* US Renal 06/10/22 [facility]11-13-2023 Miscellaneous Notes* Telephone Encounter - Shanique Manning [facility] - 12/28/2022 4:05 PM EST BMI Incoming Patient Nursing Line Call Summary: Situation/Concerns Melisa Potter's called [phone] called and said Abbey needs a RTWletter [...] Telephone Encounter. CHRIS Katz documented in this encounterCorey Hospital10-30-2023 History of Present illness Narrative* Deacon [...] visit. Either the patient or their legal community representative has been informed of the risks [...] opinion. Deacon Kat MD documented in this encounterCorey Hospital10-30-2023 [facility]-2023 [facility]-2023 NoteK[facility]10-25-2023 [facility]10-24-2023 Note [facility]-2023 [facility]10-23-2023 NoteK[facility]10-23-2023 [facility] 12-04-2022 History and physical note* Agustin Zamorano [...] was started since her last admission to [facility] last week. Patient's weight has been fluctuating [...] 12/16/2022 Time: 2:19 PM documented in this encounterCorey Hospital10-19-2023 Miscellaneous Notes* Telephone Encounter - Oliva Dobbs RN - 12/03/2022 2:00 AM EDT BMI SPECIALTY CARE COORDINATION TELEPHONE ENCOUNTER Patient hospitalized 11/27 unsure if d/c. Referred to Dr Kat who referred to Dr Zamorano [facility] of hypothyroidism, HTN, gastric ulcer, GERD, asthma, [...] for MALS- plans for surgical intervention at [facility] main [place] Consult scheduled with Dr Zamorano on 12/04. Will r/s if pt still in house. 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 referral to GI specialist , on TPN documented in this encounterCorey Hospital10-17-2023 Miscellaneous Notes* Telephone Encounter - Li Kimball RN - 12/01/2022 2:32 PM EDT Patient remains admitted at [facility]. Patient received a PICC line for home TPN to bridge her to surgery. Patient is scheduled with Dr. Zamorano for virtual consult 12/04/2022. Patient with increasednausea with TPN, [facility] continues to adjust medications. Li Kimball RN documented in this encounterCorey Hospital10-14-2023 NoteHNO ID: [id number] Author: Note, Interface Service: ? Author Type: ? Type: Progress Notes Filed: 11/28/2022 5:10 AM Note Text: Epic Scheduled Downtime: 11/28/2022 1:00:00 AM to 11/28/2022 1:28:00 [facility]10-14-2023 NoteHNO ID: [id number] Author: Note, Interface Service: ? Author Type: ? Type: Progress Notes Filed: 11/28/2022 3:45 AM Note Text: Epic Scheduled Downtime: 11/28/2022 1:00:00 AM to 11/28/2022 1:28:00 [id number] NoteHNO ID: [id number] Author: Note, Interface Service: ? Author Type: ? Type: Progress Notes Filed: 11/28/2022 3:27 AM Note Text: Epic Scheduled Downtime: 11/28/2022 1:00:00 AM to 11/28/2022 1:28:00 [facility]10-12-2023 NoteHNO ID: [id number] Author: Quyen Deshpande RN Service: ? Author Type: Registered Nurse Type: Progress Notes Filed: 11/26/2022 10:37 AM Note Text: Patient in office for hydration infusion. Patient tolerated infusion well. [id number] Miscellaneous Notes* Telephone Encounter - Kristin Hu RN - 11/25/2022 12:55 PM EDT Left message confirming pts appt tomorrow in the chronic care clinic for hydration. documented in this encounterCorey Hospital10-09-2023 Miscellaneous Notes* Telephone Encounter - Li iKmball RN - 11/23/2022 2:26 PM EDT Mesenteric ultrasound scheduled for 11/26/2022 at [facility], patient notified. Li Kimball RN * Telephone Encounter - Li Kimball RN - 11/23/2022 12:31 PM EDT I spoke to the patient's and advised that I have a request out to [facility] for IV hydration and Dr. Kat has [...] states the hospital ids going to discharge [place] and states she is unable to eat or drink and continues to have pain. Li Kimball RN documented in this encounterCorey Hospital10-08-2023 [facility]-2022 NoteLogan Regional [id number] NoteHoly Family HospitalEyhblgqy57-80-4658 NoteHNO ID: [id number] Author: Rajni Walsh, DEE Service: ? Author Type: Registered Nurse Type: Nursing Progress Note Filed: 11/18/2022 10:13 AM Note Text: Other: C/o ultram not working.Will see about another order.Urine was sent to lab.Will reassess.[facility] [id number] NoteFaBarnstable County HospitalLsejoear31-93-9479 Miscellaneous Notes* Telephone Encounter - Li Kimball RN - 11/16/2022 11:51 AM EDT Patient called and states she continues to have abdominal pain and is asking for a Tramadol prescription. Patient also asking for IV fluids as her fluid intake is still not normal. Li Kimball RN documented in this encounterCorey Hospital09-29-2023 NoteHNO ID: [id number] Author: Pablo Lebron PSYD Service: ? Author [...] Focused Psychotherapy, Supportive Therapy PROGRESS TO DATE: Assisted Progress: Stable Short Term Condition: Stable GOALS/OBJECTIVES/INTERVENTIONS: To identify and implement tools for effectively managing symptoms of anxiety, stress, and low mood. Approximately 40 minutes were spent with the patient doing therapy. 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 Nausea and vomiting 10/25/2022 10/29/19 23 Last Assessment & Plan: See above Intractable nausea and vomiting 06/20/2022 06/23/2022 Acute abdominal pain 12/21/2020 023 Obesity 09/03/2020 11/29/2020 Abdominal pain 02/01/2020 04/08/2020 Moderate episode of recurren t major depressive disorder 11/21/2019 01/03/2020 Obesity, Class II, BMI 35-39.9 10/13/2019 11/29/2020 Last Assessment & Plan: Assessment: BMI 38.74 documented as of this encounter (statuses as of 11/18/2022) [facility] History of Past illness Narrative* Problem Noted Date Diagnosed Date Resolved Date 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 Nausea and vomiting 10/25/2022 10/29/19 23 Last Assessment & Plan: See above Intractable nausea and vomiting 06/20/2022 06/23/2022 Acute abdominal pain 12/21/2020 023 Obesity 09/03/2020 11/29/2020 Abdominal pain 02/01/2020 04/08/2020 Moderate episode of recurren t major depressive disorder 11/21/2019 01/03/2020 Obesity, Class II, BMI 35-39.9 10/13/2019 11/29/2020 Last Assessment & Plan: Assessment: BMI 38.74 documented as of this encounter (statuses as of 11/21/2022) [facility] of Past illness Narrative* Problem [...] of this encounter (statuses as of 11/24/2022) [facility] of Past illness Narrative* Problem [...] of this encounter (statuses as of 11/25/2022) [facility] of Past illness Narrative* Problem [...] of this encounter (statuses as of 11/27/2022) [facility] of Past illness Narrative* Problem [...] of this encounter (statuses as of 12/02/2022) [facility] of Past illness Narrative* Problem [...] of this encounter (statuses as of 12/03/2022) [facility] of Past illness Narrative* Problem [...] of this encounter (statuses as of 12/15/2022) [facility] of Past illness Narrative* Problem [...] of this encounter (statuses as of 12/15/2022) [facility] of Past illness Narrative* Problem [...] of this encounter (statuses as of 12/17/2022) [facility] of Past illness Narrative* Problem [...] of this encounter (statuses as of 12/31/2022) [facility] of Past illness Narrative* Problem [...] of this encounter (statuses as of 01/06/2023) [facility] of Past illness Narrative* Problem [...] of this encounter (statuses as of 01/08/2023) [facility] of Past illness Narrative* Problem [...] of this encounter (statuses as of 01/11/2023) [facility] of Past illness Narrative* Problem [...] of this encounter (statuses as of 01/11/2023) [facility] of Past illness Narrative* Problem [...] of this encounter (statuses as of 01/12/2023) [facility] illness Narrative* Problem [...] of this encounter (statuses as of 01/18/2023) [facility] of Past illness Narrative* Problem [...] of this encounter (statuses as of 01/18/2023) [facility] of [facility] illness Narrative* Problem [...] of this encounter (statuses as of 04/07/2023) [facility] illness Narrative* Problem [...] of this encounter (statuses as of 05/05/2023) [facility] of Past illness Narrative* Problem [...] of this encounter (statuses as of 05/07/2023) [facility] of [facility] illness Narrative* Problem [...] of this encounter (statuses as of 05/10/2023) [facility] of [facility] illness Narrative* Problem [...] of this encounter (statuses as of 05/18/2023) [facility] Narrative* Problem [...] of this encounter (statuses as of 05/27/2023) [facility] of [facility] illness Narrative* Problem [...] of this encounter (statuses as of 05/28/2023) [facility] of Past illness Narrative* Problem [...] of this encounter (statuses as of 05/28/2023) [facility] of Past illness Narrative* Problem [...] of this encounter (statuses as of 05/30/2023) [facility] of Past illness Narrative* Problem [...] of this encounter (statuses as of 06/02/2023) [facility]09-26-2023 NoteK[facility]09-25-2023 Miscellaneous Notes* Telephone Encounter - Li Kimball RN - 11/09/2022 4:40 PM EDT Patient notified that surgery has to be moved to Wednesday as gastroenterology is no longer available to assist. I encouraged the patient to come to [place] [facility] if pain worsens or she develops an newor other concerning symptoms. Patient stated understanding and had no further questions. Li Kimball RN documented in this encounterCorey Hospital09-23-2023 [facility] 11-06-2022 Miscellaneous Notes* Telephone Encounter - Li [...] within 10-15 minutes. Patient remains admitted to [facility] and is scheduled for a [...] questions. Li Kimball RN documented in this encounterCorey Hospital09-22-2023 [facility] 11-06-2022 [facility] InstituteOcxtvgpv84-52-1829 History of Present illness Narrative* Agustin Sheets, [...] found usingthis link: [email or web address] SIGNATURE: RT Oj(R) PATIENT NAME: Abbey Garcia DATE: November 06, 2022 TIME: 10:54 AM PAGER/CONTACT #: documented in this encounterCorey Hospital09-20-2023 History of Present illness Narrative* Deacon [...] healthy appearing mucosa. This was traversed. The jltmt-yi-doeirlz limb was characterized by healthy appearing mucosa. [...] YELLOW YELLOW APPEARANCE, URINE CLEAR CLEAR Specific [place], Urine 1.010 - 1.025 1.020 PH URINE [...] Moderate Deacon Kat MD documented in this encounterCorey Hospital09-20-2023 NoteK[facility]09-18-2023 Miscellaneous Notes* Telephone Encounter - Haroon Seay [...] on Haroon Seay APRN.CNP documented in this encounterCorey Hospital09-18-2023 Emergency department Note * Dayanara Montana RN - 11/02/2022 11:55 AM EDT Pt states that her pain is getting worse along with her nausea [facility]09-18-2023 Emergency department Note* Dayanara Montana RN [...] CT scans showing possible kidney stones near [facility], here today because hands turned brown) JANINE Garcia is a 32 y.o. female who presents with abdominal pain. Patient has had multiple weeks of abdominal pain. She has had multiple ER visits in [facility]. She had multiple CT scans with [...] Walker MD 11/02/22 1325 documented in this encounterAshtabula [facility]09-18-[facility] Emergency department Note* Dayanara Montana RN - 11/02/2022 11:44 AM EDT Pt requesting to use the restroom and wants assistance. Stand by assist given pt walk with a slow steady gait at this time without difficulty [facility]09-18-2023 Physician Emergency department Note* Dimitri Walker MD - 11/02/2022 10:55 AM EDT DEPARTMENT OF EMERGENCY MEDICINE CHIEF COMPLAINT Abdominal Pain (Reports has been seen a couple of times with CT scans showing possible kidney stones near [facility], here today because hands turned brown) JANINE Garcia is a 32 y.o. female who presents with abdominal pain. Patient has had multiple weeks of abdominal pain. She has had multiple ER visits in [facility]. She had multiple CT scans with [...] solution 2,000 mL 2,000 mL Intravenous Once Dmiitri Walker MD Current Outpatient Medications Medication Sig [...] bypass surgeon. Dimitri Walker MD 11/02/22 1325 [facility]09-16-2023 Hospital Discharge instructions* Discharge Instructions* Jalyn Suresh, - 10/31/2022 8:37 AM EDT Recommend a [...] sent through Care Everywhere. * Back: Strain (Uzbek) documented in this encounterBON [facility]-2023 [facility] 10-26-2022 [facility] [id number] History of Past illness Narrative* Problem Noted [...] of this encounter (statuses as of 10/28/2022) [facility] History of Past illness Narrative* Problem [...] of this encounter (statuses as of 11/03/2022) [facility] History of Past illness Narrative* Problem [...] of this encounter (statuses as of 11/03/2022) [facility] of Past illness Narrative* Problem [...] of this encounter (statuses as of 11/03/2022) [facility] of Past illness Narrative* Problem [...] of this encounter (statuses as of 11/03/2022) [facility] of Past illness Narrative* Problem [...] of this encounter (statuses as of 11/04/2022) [facility] of Past illness Narrative* Problem [...] of this encounter (statuses as of 11/04/2022) [facility] of Past illness Narrative* Problem [...] of this encounter (statuses as of 11/05/2022) [facility] of Past illness Narrative* Problem [...] of this encounter (statuses as of 11/05/2022) [facility] of Past illness Narrative* Problem [...] of this encounter (statuses as of 11/06/2022) [facility] of Past illness Narrative* Problem [...] of this encounter (statuses as of 11/06/2022) [facility] History of Past illness Narrative* Problem [...] of this encounter (statuses as of 11/10/2022) [facility]09-10-2023 [facility] [id number] Miscellaneous Notes* Telephone Encounter - Li Kimball [...] nausea vomiting and pain return call to [phone] documented in this encounterCorey Hospital09-05-2023 Hospital Discharge instructions Patient Education 10/20/2022 [...] medicines. These include steroids, antibiotics, and some empj-sgy-cslzvxo medicines, such as aspirin or ibuprofen. Having [...] Follow these instructions at home: Medicines Take bayk-gut-qygowja and prescription medicines only as told by [...] provider. Document Revised: 06/07/2021 Document Reviewed: 06/07/2021 [employer] Patient Education 2022 [employer]. 10/20/2022 12:40:07 Abdominal Pain, Adult Abdominal Pain, [...] Follow these instructions at home: Medicines Take bpdw-dlf-odpakof and prescription medicines only as told by [...] Watch your condition for any changes. Take mcmr-xmw-fovimiw and prescription medicines only as told by [...] provider. Document Revised: 03/22/2020 Document Reviewed: 06/12/2019 [employer] Patient Education 2022 [employer]. Follow Up Care 10/20/2022 08:06:19 With:Jaquan Morrow Address: [address] [place] [phone]- Business (1) When:10/23/2022 12:06:27 [facility]09-04-2023 Evaluation + Plan noteExtracted from: Title:ED [...] nausea, # 10 tab(s), Refills(s) 0, Pharmacy: [facility] [id number], 168, cm, 10/19/22 [...] QID, # 280 mL, Refills(s) 0, Pharmacy: [facility]/pharmacy #[id number], 168, cm, 10/19/22 8:44:00 EDT, Height/Length Dosing, 85.6, kg, 10/19/22 8:44:00 EDT, Weight Dosing Automated Diff Basic Metabolic Panel CBC w/ Auto Diff eGFR Extra Blue Tube Extra SST Tube Hepatic Function Panel Lipase Level TSH With T4fr Reflex UA With Cult Reflex XR Chest 2 Views Future Appointments Appointment Date:11/20/2022 02:40:00 PM Scheduled Provider: Location:[facility] Appointment Type:FM Lab Draw Appointment Date:01/20/2023 10:00:00 AM Scheduled Provider:Nasim JOHNSON, Rajni Ballesteros Location:[facility] Appointment Type:URO Office Visit Future Scheduled Tests Laboratory* T3 Free 10/07/22 * Thyroid Stimulating Hormone 10/07/22 * Free T4 10/07/22 Radiology* US Renal 06/10/22 [facility]09-04-2023 Hospital Discharge instructions Follow Up Care 10/19/2022 08:31:02 With:Jon Rivera Address: [address] [place] [address], [facility] [address] [address] [phone] Business (1) When:10/22/2022 13:40:06 With:Your GI physician Address:Unknown When:10/22/2022 13:40:01 With:Jaquan Morrow Address: [address] [place] [phone]- Business (1) When:Within 3 Day(s) [facility]08-31-2023 Miscellaneous Notes* Telephone Encounter - Ria Roberts MD - 10/15/2022 12:06 PM EDT Refilled Linaclotide in Dr. Avalos's absence. * Telephone Encounter - Grecia Arcos - 10/15/2022 9:16 AM EDT [facility] fax requesting refills for [place] patient Last seen 07/22/22 Requested Prescriptions Pending Prescriptions Disp Refills linaclotide (LINZESS) 145 mcg capsule 30 capsule 2 Sig: Take 1 capsule by mouth DAILY (6 AM). Please review and advise. Grecia Wallace documented in this encounterCorey Hospital08-21-2023 NoteHNO ID: [id number] Author: Pablo Lebron PSYD Service: ? Author [...] Focused Psychotherapy, Supportive Therapy PROGRESS TO DATE: Assisted Progress: Stable Short Term Condition: Stable GOALS/OBJECTIVES/INTERVENTIONS: To identify and implement tools for effectively managing symptoms of anxiety, stress, and low mood. Approximately 45 minutes were spent with the patient doing therapy. [facility] History of Present illness Narrative* Pablo Lebron, [facility] - 10/05/2022 3:07 PM EDT Assessment was [...] Up and down dynamic with mom ( roller coaster ). Hx of depression (three pregnancies); PTSD [...] Focused Psychotherapy, Supportive Therapy PROGRESS TO DATE: Assisted Progress: Stable Short Term Condition: Stable GOALS/OBJECTIVES/INTERVENTIONS: To identify and implement tools for effectively managing symptoms of anxiety, stress, and low mood. Approximately 45 minutes were spent with the patient doing therapy. Pablo Lebron PsyD documented in this encounterCorey Hospital08-14-2023 Instructions* Patient Instructions* Xiomara Martinez RD [...] Fusion multivitamin soft chews and calcium citrate 1856-6152 mg/day(3 soft chews), and continue Probiotic drink [...] should last 30 minutes. 7. Aim for 3129-8351 calories and 75-100 gm carbs per day Nutrition Monitoring & Evaluation: Maintain BMI < 30 Need for Follow up: 4 months, for conversion anniversary - [phone] documented in this encounterCorey Hospital08-14-2023 History of Present illness Narrative* Xiomara Martinez RD - 09/28/2022 8:00 AM EDT [facility] Nutrition Therapy: Virtual Consult - Re-assessment I have communicated my name and active licensure. The patient s identity and physical location wereverified at the time of this visit. Either the patient or their legal community representative has been informed of the risks [...] Fusion multivitamin soft chews and calcium citrate 5344-5504 mg/day(3 soft chews), and continue Probiotic drink [...] should last 30 minutes. 7. Aim for 9445-1859 calories and 75-100 gm carbs per day Nutrition Monitoring & Evaluation: Maintain BMI < 30 Need for Follow up: 4 months, for conversion anniversary - [phone] PROGRESS: Interval History: Patient presents for follow [...] the day. Recently started tracking intake on mycujoo bre. Consistent, but likely insufficient protein intake. Following Phase 5 diet currently. 5136-9370 calories/day - meeting low-end needs 60-70 gm protein intake/day - falling below recommendations 60-90 oz fluid intake/day - meeting needs Taking all vitamin/minerals, however insufficient calcium citrate. Labs reviewed, unremarkable. Resting Metabolic Rate:1557 Energy needs for weight loss 6822-0999 (15-20 carina/kg current weight) Protein needs: 85 [...] Fusion One a Day multivitamin capsule PLUS 7714-2781 mg calcium citrate 5. Exercise: strive for [...] Garcia DATE: 09/28/2022 TIME: 7:48 AM PAGER: [phone] documented in this encounterCorey Hospital08-14-2023 [facility]23 NoteHNO ID: [id number] Author: Pablo Lebron PSYD Service: ? Author [...] importance of working outside house; balance). 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 Animosity from and mom (not enough time at home). Hurt by mom's words wants to communicate, she internalizes. Marital therapy? Appreciative of family help with kids. 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 Approximately 45 minutes were spent with the patient doing therapy. Pablo Lebron [facility]08-07-2023 History of Present illness Narrative* Pablo Lebron [facility] - 09/21/2022 2:04 PM EDT Assessment was [...] importance of working outside house; balance). 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 Animosity from and mom (not enough time at home). Hurt by mom's words wants to communicate, she internalizes. Marital therapy? Appreciative of family help with kids. Sources of support (brother and arxzzj-xy-ksg), close friend High anxiety and panic attacks [...] Focused Psychotherapy, Supportive Therapy PROGRESS TO DATE: Assisted Progress: Stable Short Term Condition: Stable GOALS/OBJECTIVES/INTERVENTIONS: To identify and implement tools for effectively managing symptoms of anxiety, stress, and low mood. Approximately 45 minutes were spent with the patient doing therapy. Pablo Lebron PsyD documented in this encounterCorey Hospital08-04-2023 [facility]-04-2023 History of Present illness Narrative* Breanna Stern APRN.LABEL FOLDER - 09/18/2022 3:14 PM EDT BMI SURGERY [...] Total weight loss: 11.3 kg (25 lb) Pinson weight: 70.3 kg (154 lb 14.5 oz) Excess weight: 24.5 kg (54 lb 1.5 oz) % of excess body weight lost: 11.3 kg (25 lb) (46.22% of excess weight loss) COMPLICATIONS SINCE LAST VISIT?: NONE EGD 06/23/22 Findings: The examined esophagus was normal. 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 The gastrojejunal anastomosis was characterized by healthy appearing mucosa. This was traversed. The wmyll-yb-abxnlzg limb was characterized by healthy appearing mucosa. [...] 40 f bougie). This was traversed. The drplr-dk-zvdgdqe limb was characterized by healthy appearing mucosa. [...] Level: 4 - Moderate documented in this encounterCorey Hospital08-04-2023 Nurse Note* Jayla Meza MA - [...] Temperature: No Drains: No documented in this encounterCorey Hospital06-22-2023 Miscellaneous Notes* Telephone Encounter - Linda Hale RN - 08/06/2022 10:40 AM EDT Thank you, patient notified. * Telephone Encounter - Kasie Avalos MD - 08/06/2022 10:08 AM EDT I agree with [place]. I signed a prescription for 145mcg per day. Thank you, Kasie Avalos MD * Telephone Encounter - Linda Hale RN - 08/06/2022 8:27 AM EDT Looks like insurance denied the appeal for Motegrity. Linzess is pended if you agree with the dosing. Linda Davis documented in this encounterCorey Hospital06-14-2023 Hospital Discharge instructions Follow Up Care 07/29/2022 09:18:39 With:Nasim JOHNSON, YUMIKO Lamar, URO Address: [address], [place] [address] [phone] When: Unknown [facility] 06-14-2023 Hospital Discharge instructions Patient Education 07/29/2022 [...] include: ?8 oz (237 mL) of milk, cwtrjjc-xeyfyksgbxzu-zshry milk, and calcium- fortifiedfruit juice. Calcium-fortified means [...] ?Spinach (cooked), rhubarb, beets, sweet potatoes, and Kyrgyz chard. ?Peanuts. ?Potato chips, south korean fries, and baked potatoes with skin on. ?Nuts and nut products. ?Chocolate. If you regularly take a diuretic medicine, make sure to eat at least 1 or 2 servings of fruits or vegetables that are high in potassium each day. These include: ?Avocado. ?Banana. ?Acadia, prune, carrot, or tomato juice. ?Baked potato. [...] magnesium, fish oil, or vitamin B6. Take arxl-sgi-ijzsxxy and prescription medicines only as told by [...] Casseroles. Pizza. Lasagna. Frozen meals. Potato chips. Chilean fries. The items listed above may not [...] provider. Document Revised: 10/13/2021 Document Reviewed: 10/13/2021 [employer] Patient Education 2022 Exogenesis. Follow Up Care 06/30/2022 09:39:02 With:Nasim JOHNSON, YUMIKO Lamar, URO Address: When: Unknown [facility] 06-13-2023 Instructions* Patient Instructions* Samara Evans MD [...] blistering or peeling skin. documented in this encounterCorey Hospital06-13-2023 History of Present illness Narrative* Samara [...] Past Histories independently gathered by the clinical account support manager, and the remaining scribed note [...] visit. Samara Evans MD documented in this encounterCorey Hospital06-08-2023 Miscellaneous Notes* Telephone Encounter - Linda [...] denying Motegrity authorization Full letter scanned in [employer] for review Grecia Wallace * Telephone Encounter [...] 07/23/2022 8:49 AM EDT Fax received from [facility] to notify Motegrity not covered, will need PA or prescribe alternative: Linzesnancy, Noreen or Amitza Fax scanned in [facility] documented in this encounterCorey Hospital06-07-2023 History of Present illness Narrative* Donnie [...] with cornea provider or [facility] Will sendmessage Return precautions were discussed in detail Plan reviewed with the patient who verbalizes understanding Donnie David MD Ophthalmology Resident documented in this encounterCorey Hospital06-07-2023 History of Present illness Narrative* Kasie [...] lesion. Mild degenerative changes. Lower thorax: Unremarkable. Kettle Firer (topogram) images: No additional findings. CT ABD/PEL [...] Tissues: No acute abnormality. Lower thorax: Unremarkable. Kettle Firer (topogram) images: No additional findings. US ABD [...] healthy appearing mucosa. This was traversed. The ksdkn-ex-vvbftoi limb was characterized by healthy appearing mucosa. [...] 40 f bougie). This was traversed. The avzsu-yt-fqqeprb limb was characterized by healthy appearing mucosa. [...] ceroid-laden histiocytes. There is no interface activity. [place] bile duct branches are identified in nearly [...] MD July 22, 2022 documented in this encounterCorey Hospital05-06-2023 History of Past illness Narrative* Problem Noted Date Resolved Date Intractable nausea and vomiting 06/20/2022 06/23/2022 Acute abdominal pain 12/21/2020 06/23/2022 Obesity 09/03/2020 11/29/2020 Abdominal pain 02/01/2020 04/08/2020 Moderate episode of recurrent major depressive d isorder 11/21/2019 01/03/2020 Obesity, Class II, BMI 35-39.9 10/13/2019 1 Last Assessment & Plan: Assessment: BMI 38.74 documented as of this encounter (statuses as of 07/22/2022) [facility] of Past illness Narrative* Problem Noted Date Resolved Date Intractable nausea and vomiting 06/20/2022 06/23/2022 Acute abdominal pain 12/21/2020 06/23/2022 Obesity 09/03/2020 11/29/2020 Abdominal pain 02/01/2020 04/08/2020 Moderate episode of recurrent major depressive d isorder 11/21/2019 01/03/2020 Obesity, Class II, BMI 35-39.9 10/13/2019 1 Last Assessment & Plan: Assessment: BMI 38.74 documented as of this encounter (statuses as of 07/22/2022) [facility] of Past illness Narrative* Problem Noted Date Resolved Date Intractable nausea and vomiting 06/20/2022 06/23/2022 Acute abdominal pain 12/21/2020 06/23/2022 Obesity 09/03/2020 11/29/2020 Abdominal pain 02/01/2020 04/08/2020 Moderate episode of recurrent major depressive d isorder 11/21/2019 01/03/2020 Obesity, Class II, BMI 35-39.9 10/13/2019 1 Last Assessment & Plan: Assessment: BMI 38.74 documented as of this encounter (statuses as of 07/23/2022) [facility] of Past illness Narrative* Problem Noted Date Resolved Date Intractable nausea and vomiting 06/20/2022 06/23/2022 Acute abdominal pain 12/21/2020 06/23/2022 Obesity 09/03/2020 11/29/2020 Abdominal pain 02/01/2020 04/08/2020 Moderate episode of recurrent major depressive d isorder 11/21/2019 01/03/2020 Obesity, Class II, BMI 35-39.9 10/13/2019 1 Last Assessment & Plan: Assessment: BMI 38.74 documented as of this encounter (statuses as of 07/23/2022) [facility] of Past illness Narrative* Problem Noted Date Resolved Date Intractable nausea and vomiting 06/20/2022 06/23/2022 Acute abdominal pain 12/21/2020 06/23/2022 Obesity 09/03/2020 11/29/2020 Abdominal pain 02/01/2020 04/08/2020 Moderate episode of recurrent major depressive d isorder 11/21/2019 01/03/2020 Obesity, Class II, BMI 35-39.9 10/13/2019 1 Last Assessment & Plan: Assessment: BMI 38.74 documented as of this encounter (statuses as of 08/03/2022) [facility] of Past illness Narrative* Problem Noted Date Resolved Date Intractable nausea and vomiting 06/20/2022 06/23/2022 Acute abdominal pain 12/21/2020 06/23/2022 Obesity 09/03/2020 11/29/2020 Abdominal pain 02/01/2020 04/08/2020 Moderate episode of recurrent major depressive d isorder 11/21/2019 01/03/2020 Obesity, Class II, BMI 35-39.9 10/13/2019 1 Last Assessment & Plan: Assessment: BMI 38.74 documented as of this encounter (statuses as of 08/06/2022) [facility] Narrative* Problem [...] of this encounter (statuses as of 09/19/2022) [facility] Narrative* Problem [...] of this encounter (statuses as of 09/22/2022) [facility] Narrative* Problem [...] of this encounter (statuses as of 09/28/2022) [facility] Narrative* Problem [...] of this encounter (statuses as of 10/06/2022) [facility] Narrative* Problem [...] of this encounter (statuses as of 10/15/2022) [facility] Narrative* Problem [...] of this encounter (statuses as of 10/21/2022) [facility] Narrative* Problem [...] of this encounter (statuses as of 12/21/2022) [facility] History of Present illness Narrative* Aliyah [...] advised she may send a message on Chiasma if she has any additional questions. Aliyah Washburn PA-C Orthopaedic & Rheumatologic [facility] Date: June 18, 2022 Time: [...] No Swollen Glands: No documented in this encounterCorey Hospital04-28-2023 History of Present illness Narrative* Aliyah Washburn PA-C - 06/12/2022 10:26 AM EDT Images from the original note were not included. Rheumatology Outpatient Clinic Date of Service: 06/12/2022 Patient: Abbey Garcia Medical Record: [id number] Primary Care Physician: Wally Foley MD Last Rheumatology visit: [facility] Referring Provider: HENNY Marcus [address] [facility] [address] [facility] [address] Consultation requested by Agustin Valentino for an [...] hypothyroidism. 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 She reports symptoms are interrupted by [...] 2 Antichromatin nega <0.2 RF negative <10 ELECTRICAL CONTACTS ADJUSTER 0.3 SSA <0.2 SSB <0.2 Mc <0.2 [...] symmetric on resisted finger separation and hand slab puller Knees FROM Ankles FROM No MTP squeeze [...] insufficiency and hypothyroidism. She has not seen press operator heavy duty. Would like to rule out endocrine causes [...] which included preparing to see the patient, wdnz-bu-xzxl patient care, completing clinical documentation, obtaining and/or reviewing separately obtained history, performing a medically appropriate examination, counseling and educating the pat ient/family/caregiver, and ordering medications, tests, or procedures. Aliyah Washburn PA-C [facility]umat[facility] Date: June 12, 2022 Time: 10:26 AM documented in this encounterCorey Hospital04-26-2023 Hospital Discharge instructions Patient Education 06/10/2022 [...] you until you feel stable. Medicines Take ukgb-sgw-qriuhdv and prescription medicines only as told by [...] provider. Document Revised: 06/12/2021 Document Reviewed: 06/12/2021 [employer] Patient Education 2022 Exogenesis. 06/10/2022 17:05:57 Nonspecific Chest Pain, Adult Nonspecific [...] Follow these instructions at home: Medicines Take dbrh-ljt-tubgajy and prescription medicines only as told by [...] provider. Document Revised: 04/17/2021 Document Reviewed: 04/17/2021 [employer] Patient Education 2022 Exogenesis. Follow Up Care 06/10/2022 12:31:10 With:Chetna Jack Address: [address] [place] [address] [place] [address]- [phone] Business (1) When:06/13/2022 17:03:30 Comments:Schedule event loop recorder as well as echocardiogram with central scheduling and then follow-up with mushroom growing supervisor Dr. Jack With:Jaquan Morrow Address: [address] [place] [phone]- Business (1) When:06/13/2022 17:03:46 Comments:Call the office [...] you develop any new or worsening symptoms. [facility]01-20-2023 Nurse Note* Eli Carter RN - [...] None REFERRAL (RECOMMENDATION): None documented in this encounterCorey Hospital01-19-2023 Miscellaneous Notes* Telephone Encounter - Victor M Dennis - 03/05/2022 11:54 AM EST Spoke with the patient confirmed 1:45 arrival time for 2:45 appointment at [facility]. Victor M Dennis * Telephone Encounter - Li Kimball RN - 03/05/2022 10:31 AM EST I called patient and left a message with EGD appointment instructions and location. Call back number provided. Li Kimball RN documented in this encounterCorey Hospital01-19-2023 Instructions* Patient Instructions* Breanna Stern APRN.CNP - 03/05/2022 10:18 AM EST I have asked scheduling to add you on for an appointment in 2 months for your regular follow up, we'll check your labs at that time. (I've ordered them, no need to fast) We may need to see you sooner based on results of your EGD documented in this encounterCorey Hospital01-19-2023 History of Present illness Narrative* Breanna [...] Total weight loss: 19.1 kg (42 lb) Pinson weight: 70.3 kg (154 lb 14.5 oz) [...] follow up: See Epic Orders Breanna Stern APRN.CNP documented in this encounterCorey Hospital12-30-2022 History of Present illness Narrative* Kuldip [...] taking tylenol for her pain. PHYSICAL EXAM: [facility] 08/19/2020 General: Appears stated age, well built, [...] lateral patellar facet. Bilateral PF crepitance IMPRESSION: (S73.266D) Acetabular labrum tear, right, subsequent encounter (primary encounter diagnosis) PLAN: 1. Medication: None. 2. Test(s)/Imaging/Referral(s): None. 3. Intervention: Continue conservative treatment. Objectively, patients hip is doing well post op. She has been dealing with a right knee injury as well (images were uploaded in the system today). She saw a provider in the [place] area who recommended her have an osteotomy. 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 We discussed the option of seeing Dr. Gutierres for a second opinion as patient is eager to see someone through the [facility] system. We will help her set [...] Scribe Attestation: By signing my name below, IJace AT, attest that this documentation has been preparedunder the direction and in the presence of Kuldip Yousif M.D. Electronically Signed:Jace Galvan Elianamike, AT, February 13, 2022 10:26 AM I agree with the Chief Complaint, ROS, and Past Histories independently gathered by the clinical account support manager and the remaining scribed note accurately describes my personal service to the patient. Kuldip Yousif MD documented in this encounterCorey Hospital12-22-2022 Miscellaneous Notes* Telephone Encounter - Li [...] nausea. Li Kimball RN documented in this encounterCorey Hospital12-21-2022 History of Present illness Narrative* Nahed Tamez, DADA - 02/04/2022 9:24 AM EST [facility] Nutrition Therapy: Virtual Consult - Re-assessment [...] Fusion One a Day multivitamin capsule PLUS 1854-5656 mg calcium citrate daily) 4. Protein goal: 75-93 grams protein/day. 5. Fluid goal: 64oz per day water. (no calories, no caffeine, no carbonation, no alcohol) 6. Call the BMI department at [phone] to schedule your one month post op nutrition visit for February. Link to book as discussed: https://my.[facility].org/-/scassets/files/org/bariatric/guides/bmiguideboo k-[email or web address].ashx?la=en Nutrition Monitoring & Evaluation: Adherence to [...] Fusion One a Day multivitamin capsule PLUS 1761-3265 mg calcium citrate 5. Exercise: strive for [...] Garcia DATE: 02/04/2022 TIME: 9:24 AM PAGER: [phone] documented in this encounterCorey Hospital12-20-2022 Instructions* Patient Instructions* Breanna Stern APRN.CNP [...] your activity as tolerated. documented in this encounterCorey Hospital12-20-2022 History of Present illness Narrative* Breanna [...] Total weight loss: 15.4 kg (34 lb) Pinson weight: 70.3 kg (154 lb 14.5 oz) [...] 1 month post op visit. Breanna Stern APRN.LABEL FOLDER documented in this encounterCorey Hospital12-20-2022 Nurse Note* Lucia Ramirez MA - 02/03/2022 2:53 PM EST What is the reason for your visit today? Follow up Who is your referring physician? Are you having poor oral intake? A little Have you had unintentional weight loss of 15 lbs/7 Kg in the last 3-6 months? NO Bowels: regular Wound: Temperature: No Drains: No documented in this encounterCorey Hospital12-20-2022 Miscellaneous Notes* Telephone Encounter - Li [...] 02/03/2022. Li Kimball RN documented in this encounterCorey Hospital12-19-2022 Miscellaneous Notes* Telephone Encounter - Li Kimball RN - 02/02/2022 2:39 PM EST See 02/02/2022 MyChart encounter Li Kimball RN * Telephone Encounter - Olga Paul - 02/02/2022 8:46 AM EST Patient called in and will like a refill on pain medication. Patients pharmacy is the [facility] in [place]. Contact# [phone] documented in this encounterCorey Hospital12-14-2022 History and physical note * Ioana [...] Prior to Admission medications as of 01/28/22 09 Medication Sig Last Dose Taking multivitamin tablet [...] fevers. Neuro: No history of TIA's, stroke, EXAMINER RATING CLERK tumor, impaired sensorium, hemiplegia, paraplegia or quadraplegia. No neurological symptoms or problems. Respiratory: +RICHAR, asthma Negative for COPD, Current cough, Dyspnea, Home O2, Pneumonia within 6 weeks (date), Wheezing Cardiovascular: +hx HTN during /post , resolved. Negative for Recent CA, Angina, CAD, Chest Pain, CHF, DVT/PE GI: [...] 2022 TIME: 11:05 AM documented in this encounterCorey Hospital12-08-2022 Instructions* Patient Instructions* Ioana Hogan PA-C - 01/22/2022 11:55 AM EST PATIENT PREOPERATIVE INSTRUCTIONS Deacon Kat MD has scheduled you for your procedure at this surgery center: [facility]: [phone] --[address] [address]. Please check in on the1st floor at [...] Procedures: - YOU MUST HAVE A RESPONSIBLE REHAB THERAPY MANAGER TAKE YOU HOME. A EXCEL EXPERT OR FIELD PIPE LINES SUPERVISOR CANNOT BE MADE A RESPONSIBLE REHAB THERAPY MANAGER. - We recommend that a responsible person stays with you overnight to take care of you. - You cannot stay in a hotel alone after outpatient surgery. You will not be permitted to have yoursurgery, if you do not have someone to take care of you. If you already have an Advance Directive, please fax a copy to [phone] or email to for it to be [...] day. Ioana Hogan PA-C documented in this encounterCorey [facility]12-06-2022 Miscellaneous Notes* Telephone Encounter - Li [...] provided. Li Kimball RN documented in this encounterCorey Hospital11-22-2022 Miscellaneous Notes* Telephone Encounter - Li [...] questions. Li Kimball RN documented in this encounterCorey Hospital11-18-2022 Instructions* Patient Instructions* Sabina Joy APRN.LABEL FOLDER - 01/02/2022 11:29 AM EST Images from the original note were not included. Mutually Agreed Upon Goals Eating Plan: [employer] Pal BRE - Log intake 2 days [...] BRE for meditation - Mindful Moments by [facility]. [place]. Insight Timer [email or web address]#our-picks How can I fix my acid [...] but are usually stronger and faster than [id number]. Dietary habits for acid reflux Reduce or [...] Try Breakfast: 1 scrambled egg (75 calories) Uzbek muffin (67 calories) Calories per meal: 142 AM Snack & Fluids: *Spread out and sipped between meals 2 cups water (0 calories) 1 cup skim milk or unsweetened soy milk (90 calories) Calories per meal: 90 Lunch: 4 oz canned tuna in water (100 calories) 2 Tbsp fat free ortiz (20 calories) 1 slice low fat Kyrgyz cheese (50 calories) 1 slice whole grain [...] after gastric sleeve surgery? (Full meal plan) (Propel IT) .kml documented in this encounterCorey Hospital11-18-2022 History of Present illness Narrative* Sabina Joy APRN.CNP - 01/02/2022 11:00 AM EST BMI OM PostOp Note - Virtual Visit January 02, 2022 [facility] VISIT This Team Access Model visit [...] weight loss: 35 lbs or 14.58 % Pinson weight: 70.3 kg (154 lb 14.5 oz) [...] which included preparing to see the patient, [id number] patient care, completing clinical documentation, obtaining and/or reviewing separately obtained history, performing a medically appropriate examination, counseling and educating the pat ient/family/caregiver, independently interpreting results (not separately reported), and communicating results to the patient/family/caregiver. Follow up in 6 months. This visit was performed virtually due to the COVID-19 epidemic as an effort to protect patients and minimize exposure. documented in this encounterCorey Hospital11-17-2022 History of Present illness Narrative* Marisabel Lynn LPN - 01/01/2022 2:41 PM EST 2Name: Abbey Garcia F#: [id number] Date: 01/01/2022 HUERTA 48 HR PH FOLLOW-UP The HUERTA monitor was received today via [employer] transport.. Test data from the journal clerk was downloaded. Events from the patient diary were inserted into the study for physician review. .Marisabel Lynn LPN documented in this encounterCorey Hospital11-10-2022 History of Present illness Narrative* Marisabel Lynn LPN - 12/25/2021 11:28 AM EST Name: Abbey Garcia [facility]#: [id number] Date: 12/25/2021 48hr HUERTA PH CAPSULE PLACEMENT [...] hours. 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 Date of Consent: 12/25/2021 Consent obtained by: Giselle Ford MD A copy of the consent form was given to the consenting green party and ample time was provided for review. Extensive overview of the study was presented to the individuals above. Potential risks/benefits were reviewed. Alternatives (non-participation) were explained. All questions were answered and understanding was verbalized. The patient wished to proceed. A signed and dated copy of the informed consent was provided to the consenting green party. Mateusz Kraft Research Coordinator documented in this encounterCorey Hospital10-05-2022 Miscellaneous Notes* Telephone Encounter - Li Kimball RN - 11/19/2021 10:57 AM EDT I called the patient and left a message for the patient to call [phone], option [phone] to schedule the pH Impedence testing. Call back number provided for additional questions or concerns. Li Kimball RN documented in this encounterCorey Hospital10-03-2022 History of Present illness Narrative* Deacon [...] mcg, Iron 45-60 mg and calcium citrate 0036-6779 mg/day PHYSICAL EXAMINATION General appearance: Well appearing, [...] the date of the service which included [id number]-[id number] patient care, completing clinical documentation, obtaining and/or reviewing separately obtained history, counseling and educating the patient/family/caregiver, and ordering medications, tests, or procedures. Deacon Kat MD documented in this encounterCorey Hospital10-03-2022 Miscellaneous Notes* Telephone Encounter - Grecia Velasquez [facility] - 11/17/2021 11:21 AM EDT Pharmacy fax requesting refills as follows: Patient scheduled for follow up visit Dec 24 Requested Prescriptions Pending Prescriptions Disp Refills famotidine (PEPCID) 40 mg tablet 90 tablet 1 Sig: Take 1 tablet by mouth once daily. Please review and advise. [facility]ia [facility] documented in this encounterCorey Hospital09-06-2022 Miscellaneous Notes* Telephone Encounter - Cornel Conrad - 10/21/2021 11:14 AM EDT Do not schedule on 10/[address] Yousif. Cornel Conrad * Telephone Encounter - Cornel Conrad - 10/21/2021 10:10 AM EDT Called patient to reschedule 10/[address] Yousif will be out of the office in the afternoon that day. Per Dr. Yousif, patient can be rescheduled at [facility] on 10/21 between 4:15-5:30 PM or at [facility] on 10/24 from 8 AM - 12 PM. Do not double book slots. Cornel Conrad documented in this encounterCorey Hospital09-06-2022 Miscellaneous Notes* Telephone Encounter - Slime Crews - 10/21/2021 8:25 AM EDT Called patient to reschedule 10/[address] Yousif will be out of the office in the afternoon that day. Per Dr. Yousif, patient can be rescheduled at [facility] on 10/21 between 4:15-5:30 PM or on 10/22 in [place] between 4-6 PM. Do not double book slots. documented in this encounterCorey Hospital08-25-2022 Instructions* Patient Instructions* Sabina Joy APRN.BETH - 10/09/2021 3:56 PM EDT Images from the original note were not included. Mutually Agreed Upon Goals Eating Plan: [employer] Pal BRE - Log intake 7 days per week. Replace skipped meals with a protein supplement. Bariatric Plate Method Activity: Walking as tolerated. Chair exercises Sleep: No electronic for 30 minutes prior to sleep 2 nights per week. Practice Sleep Hygiene. CPAP nightly Stress: BRE for meditation - Mindful Moments by [facility]. [place]. [place]oso Timer [email or web address]/mental-[email or web address]/[email or web address]-[email or web address]-[email or web address] ps#our-picks Steps to Follow Bariatric Plate Total [...] own fruit infused price >> lemon or [place] with oranges, blackberries, strawberries and fresh mint, [...] with food. Calcium Citrate with Vitamin D 3217-4420 mg calcium - DO NOT TAKE WITH IRON OR MULTIVITAMIN Vitamin D3 - take 3,000 international unit(s) per day from all sources documented in this encounterCorey Hospital08-25-2022 History of Present illness Narrative* Sabina [...] 32.28 kg/(m^2) Total weight loss: 42 lbs Pinson weight: 70.3 kg (154 lb 14.5 oz) [...] which included preparing to see the patient, mock-gs-uchm patient care, completing clinical documentation, obtaining and/or reviewing separately obtained history, performing a medically appropriate examination, counseling and educating the pat ient/family/caregiver, ordering medications, tests, or procedures, independently interpreting results (not separately reported), and communicating results to the patient/family/caregiver. Medical Decision Making: Level: 1 - N/A Sabina Joy APRN.CNP documented in this encounterCorey Hospital07-16-2022 Hospital Discharge instructions* Discharge Instructions* Pablo Atwood DO - 08/30/2021 4:11 AM EDT Please take all medications as prescribed and follow-up with your oral surgeon on Wednesday as scheduled. * Attachments The following attachments cannot be sent through Care Everywhere. * Tooth: Abscessed (Uzbek) documented in this encounterBON Pin-Digital Work Phone: [phone] 379-919707-15-2022 Miscellaneous Notes* Telephone Encounter - Justine Shabazz PA-C - 08/29/2021 2:55 PM EDT Pharmacy generated request, refill not appropriate. Justine Shabazz PA-C documented in this encounterCorey Hospital07-15-2022 Instructions* Patient Instructions* Justine Shabazz PA-C [...] and carry free weights documented in this encounterCorey Hospital07-15-2022 History of Present illness Narrative* Justine Shabazz PA-C - 08/29/2021 2:16 PM EDT POST OP DISTANCE HEALTH VIRTUAL VISIT DOCUMENTATION NOTE This virtual visit was performed via video enabled technology, and the patient provided consent to be evaluated and managed using this virtual visit and video enabled technology. Distance Health Platform: Optini Virtual Visit People present : Justine Shabazz [...] Nica Shabazz, MS, PA-C documented in this encounterCorey Hospital07-14-2022 Instructions* Patient Instructions* Xiomara Martinez, RD - 08/28/2021 8:28 AM EDT 1. [...] Fusion One a Day multivitamin capsule PLUS 0792-5751 mg calcium citrate 5. Exercise: strive for [...] or sooner if needed documented in this encounterCorey Hospital07-14-2022 History of Present illness Narrative* Xiomara Martinez RD - 08/28/2021 7:54 AM EDT [facility] Nutrition Therapy: Virtual Consult Re-assessment This [...] Fluids: water (64 oz), gatorade zero, Body Noble light Exercise: limited to PT due to [...] Rate: 1635 Energy needs for weight loss 4194-9548 (15-20 carina/kg current weight) Protein needs: 75-93 [...] Fusion One a Day multivitamin capsule PLUS 1355-0040 mg calcium citrate 5. Exercise: strive for [...] by: Xiomara Martinez RD documented in this encounterCorey Hospital07-08-2022 Evaluation note* Encounter Date Diagnosis Assessment Notes Treatment Notes Treatment Clinical Notes Aug, PTSD (post-traumatic stress disorder) (ICD-10 - F43.10) [employer] Other [id number] Miscellaneous Notes* Telephone Encounter - Grecia Wallace - 08/22/2021 10:40 AM EDT Pharmacy fax requesting refills as follows: patient has a follow up visit 09/24/21 Pending Prescriptions Disp Refills OMEPRAZOLE 40 MG CAPSULE,DELAYED RELEASE 60 capsule 0 Sig: Take 1 capsule by mouth twice daily. ELIJAH: No Please review and advise. Grecia Wallace documented in this encounterCorey Hospital07-03-2022 Evaluation note* Encounter Date Diagnosis Assessment [...] system will be more sensitive than normal. [employer] Other [id number] Miscellaneous Notes* Telephone Encounter - Justine Shabazz PA-C - 08/14/2021 2:51 PM EDT Pharmacy generated request, refill not appropriate. Justine Shabazz PA-C documented in this encounterCorey Hospital06-17-2022 Instructions* Patient Instructions* Justine Shabazz PA-C [...] hyperextension(moving leg backward) and letting your feet turnstile collector when standing or laying flat- until 3 [...] others. Follow-up: 4 weeks documented in this encounterCorey Hospital06-17-2022 History of Present illness Narrative* Justine Shabazz PA-C - 08/01/2021 10:55 AM EDT POST OP DISTANCE HEALTH VIRTUAL VISIT DOCUMENTATION NOTE This virtual visit was performed via video enabled technology, and the patient provided consent to be evaluated and managed using this virtual visit and video enabled technology. [place] Platform: Optini Virtual Visit People present : Justine Shabazz PA-C and Patient Time Spent for video encounter, record review and documentation: 15 minutes CHIEF COMPLAINT (CC): Post op right hip HISTORY OF PRESENT ILLNESS (HPI): 3 weeks s/p 1. right hip arthroscopy. 2. Acetabuloplasty CPT 02175 3. Labral repair. CPT 61447 4. Femoroplasty. CPT 94264 5. Capsular Closure DOS: 08/10/21 Denies systemic [...] will review MRI right knee (uploaded in [place]). She has been referredto physician in [place] and was recommended to have osteotomy, she [...] hyperextension(moving leg backward) and letting your feet turnstile collector when standing or laying flat- until 3 [...] Justine Shabazz MS, PA-C documented in this encounterCorey Hospital05-20-2022 History of Present illness Narrative* Justine Shabazz PA-C - 07/04/2021 10:59 AM EDT AMBULATORY TELEPHONE VISIT Abbey Sandra Garcia has consented to this telephone encounter. Persons Present: patient Chief Complaint/Reason: Pre op right hip HPI: 31 y/o female scheduled for right hip arthrosc[place] with [place]ous[place] [facility] 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 - down 50 lb Anticoagulation medications: no Pharmacy/ scripts: [facility] - advised will be sent 07/09/21 day [...] with Dr Yousif Post op RXs to [facility] 07/09/21 PT 07/11/21 Post op follow up 07/30/21 - ideally virtual Total Time Spent: 8 minutes Justine Shabazz PA-C documented in this encounterCorey Hospital05-09-2022 History of Present illness Narrative* Justine [...] must be done in radiology at the [facility] to ensure correct views.) Brace fitting: Yes - ( hip brace fit with [facility] Rep at [facility]) Pre op PT visit required for HIP [...] up) No. Pre op instructions sent via Chiasma. DONAVAN Douglas documented in this encounterCorey Hospital05-04-2022 History of Present illness Narrative* Kuldip Yousif MD - 06/18/2021 11:00 AM EDT x * Kuldip Yousif MD - 06/18/2021 10:23 AM EDT Images from the original note were not included. DEPARTMENT OF ORTHOPAEDICS Consultation as a request of Shanna June NP [address] [facility] [address] Chief Complaint: Right hip pain HISTORY OF [...] Bilateral arthroscopic knee surgery- was catcher in [facility] LINE INSERT/CONSULT 12/24/2020 VAGINAL DELIVERY AFTER DELIVERY [...] No history of dysuria, frequency or incontinence FAIRING MAN: Negative for abnormal vaginal bleeding, abnormal vaginal [...] Past Histories independently gathered by the clinical account support manager and the remaining scribed note accurately describes my personal service to the patient. Kuldip Yousif MD documented in this encounterCorey Hospital04-18-2022 History of Present illness Narrative* Lucie [...] prior to that time. documented in [facility]OS[facility] note * Encounter Date [...] intake. Mar, Other Asthma material was printed [employer] Other 12-14-2021 Evaluation note* Encounter Date Diagnosis [...] to be seen. Also always know the [facility] Emergency Number is 24 hours a [...] surgeon after discussing options and treatment locations. [employer] Other 07-20-2021 History of Past illness Narrative* Problem Noted Date Resolved Date Obesity 09/03/2020 11/29/2020 Abdominal pain 02/01/2020 04/08/2020 Moderate episode of recurrent major depressive d isorder 11/21/2019 01/03/2020 Obesity, Class II, BMI 35-39.9 10/13/2019 1 Last Assessment & Plan: Assessment: BMI 38.74 documented as of this encounter (statuses as of 06/18/2021) [facility] of Past illness Narrative* Problem Noted Date Resolved Date Obesity 09/03/2020 11/29/2020 Abdominal pain 02/01/2020 04/08/2020 Moderate episode of recurrent major depressive d isorder 11/21/2019 01/03/2020 Obesity, Class II, BMI 35-39.9 10/13/2019 1 Last Assessment & Plan: Assessment: BMI 38.74 documented as of this encounter (statuses as of 06/23/2021) [facility] of Past illness Narrative* Problem Noted Date Resolved Date Obesity 09/03/2020 11/29/2020 Abdominal pain 02/01/2020 04/08/2020 Moderate episode of recurrent major depressive d isorder 11/21/2019 01/03/2020 Obesity, Class II, BMI 35-39.9 10/13/2019 1 Last Assessment & Plan: Assessment: BMI 38.74 documented as of this encounter (statuses as of 07/09/2021) [facility] Narrative* Problem Noted Date Resolved Date Obesity 09/03/2020 11/29/2020 Abdominal pain 02/01/2020 04/08/2020 Moderate episode of recurrent major depressive d isorder 11/21/2019 01/03/2020 Obesity, Class II, BMI 35-39.9 10/13/2019 1 Last Assessment & Plan: Assessment: BMI 38.74 documented as of this encounter (statuses as of 07/15/2021) [facility] Narrative* Problem Noted Date Resolved Date Obesity 09/03/2020 11/29/2020 Abdominal pain 02/01/2020 04/08/2020 Moderate episode of recurrent major depressive d isorder 11/21/2019 01/03/2020 Obesity, Class II, BMI 35-39.9 10/13/2019 1 Last Assessment & Plan: Assessment: BMI 38.74 documented as of this encounter (statuses as of 07/28/2021) [facility] Narrative* Problem Noted Date Resolved Date Obesity 09/03/2020 11/29/2020 Abdominal pain 02/01/2020 04/08/2020 Moderate episode of recurrent major depressive d isorder 11/21/2019 01/03/2020 Obesity, Class II, BMI 35-39.9 10/13/2019 1 Last Assessment & Plan: Assessment: BMI 38.74 documented as of this encounter (statuses as of 08/01/2021) [facility] Narrative* Problem Noted Date Resolved Date Obesity 09/03/2020 11/29/2020 Abdominal pain 02/01/2020 04/08/2020 Moderate episode of recurrent major depressive d isorder 11/21/2019 01/03/2020 Obesity, Class II, BMI 35-39.9 10/13/2019 1 Last Assessment & Plan: Assessment: BMI 38.74 documented as of this encounter (statuses as of 08/14/2021) [facility] Narrative* Problem Noted Date Resolved Date Obesity 09/03/2020 11/29/2020 Abdominal pain 02/01/2020 04/08/2020 Moderate episode of recurrent major depressive d isorder 11/21/2019 01/03/2020 Obesity, Class II, BMI 35-39.9 10/13/2019 1 Last Assessment & Plan: Assessment: BMI 38.74 documented as of this encounter (statuses as of 08/22/2021) [address]20-2021 History of Past illness Narrative* Problem Noted Date Resolved Date Obesity 09/03/2020 11/29/2020 Abdominal pain 02/01/2020 04/08/2020 Moderate episode of recurrent major depressive d isorder 11/21/2019 01/03/2020 Obesity, Class II, BMI 35-39.9 10/13/2019 1 Last Assessment & Plan: Assessment: BMI 38.74 documented as of this encounter (statuses as of 08/28/2021) [facility] Narrative* Problem Noted Date Resolved Date Obesity 09/03/2020 11/29/2020 Abdominal pain 02/01/2020 04/08/2020 Moderate episode of recurrent major depressive d isorder 11/21/2019 01/03/2020 Obesity, Class II, BMI 35-39.9 10/13/2019 1 Last Assessment & Plan: Assessment: BMI 38.74 documented as of this encounter (statuses as of 08/29/2021) [address]20-[address]21 History of Past illness Narrative* Problem Noted Date Resolved Date Obesity 09/03/2020 11/29/2020 Abdominal pain 02/01/2020 04/08/2020 Moderate episode of recurrent major depressive d isorder 11/21/2019 01/03/2020 Obesity, Class II, BMI 35-39.9 10/13/2019 1 Last Assessment & Plan: Assessment: BMI 38.74 documented as of this encounter (statuses as of 08/29/2021) [facility] Narrative* Problem Noted Date Resolved Date Obesity 09/03/2020 11/29/2020 Abdominal pain 02/01/2020 04/08/2020 Moderate episode of recurrent major depressive d isorder 11/21/2019 01/03/2020 Obesity, Class II, BMI 35-39.9 10/13/2019 1 Last Assessment & Plan: Assessment: BMI 38.74 documented as of this encounter (statuses as of 09/02/2021) [facility] Narrative* Problem Noted Date Resolved Date Obesity 09/03/2020 11/29/2020 Abdominal pain 02/01/2020 04/08/2020 Moderate episode of recurrent major depressive d isorder 11/21/2019 01/03/2020 Obesity, Class II, BMI 35-39.9 10/13/2019 1 Last Assessment & Plan: Assessment: BMI 38.74 documented as of this encounter (statuses as of 10/09/2021) [facility] Narrative* Problem Noted Date Resolved Date Obesity 09/03/2020 11/29/2020 Abdominal pain 02/01/2020 04/08/2020 Moderate episode of recurrent major depressive d isorder 11/21/2019 01/03/2020 Obesity, Class II, BMI 35-39.9 10/13/2019 1 Last Assessment & Plan: Assessment: BMI 38.74 documented as of this encounter (statuses as of 10/09/2021) [address]21 History of Past illness Narrative* Problem Noted Date Resolved Date Obesity 09/03/2020 11/29/2020 Abdominal pain 02/01/2020 04/08/2020 Moderate episode of recurrent major depressive d isorder 11/21/2019 01/03/2020 Obesity, Class II, BMI 35-39.9 10/13/2019 1 Last Assessment & Plan: Assessment: BMI 38.74 documented as of this encounter (statuses as of 10/21/2021) [facility] Narrative* Problem Noted Date Resolved Date Obesity 09/03/2020 11/29/2020 Abdominal pain 02/01/2020 04/08/2020 Moderate episode of recurrent major depressive d isorder 11/21/2019 01/03/2020 Obesity, Class II, BMI 35-39.9 10/13/2019 1 Last Assessment & Plan: Assessment: BMI 38.74 documented as of this encounter (statuses as of 11/18/2021) [facility] Narrative* Problem Noted Date Resolved Date Obesity 09/03/2020 11/29/2020 Abdominal pain 02/01/2020 04/08/2020 Moderate episode of recurrent major depressive d isorder 11/21/2019 01/03/2020 Obesity, Class II, BMI 35-39.9 10/13/2019 1 Last Assessment & Plan: Assessment: BMI 38.74 documented as of this encounter (statuses as of 11/18/2021) [facility] Narrative* Problem Noted Date Resolved Date Obesity 09/03/2020 11/29/2020 Abdominal pain 02/01/2020 04/08/2020 Moderate episode of recurrent major depressive d isorder 11/21/2019 01/03/2020 Obesity, Class II, BMI 35-39.9 10/13/2019 1 Last Assessment & Plan: Assessment: BMI 38.74 documented as of this encounter (statuses as of 11/19/2021) [facility] Narrative* Problem Noted Date Resolved Date Obesity 09/03/2020 11/29/2020 Abdominal pain 02/01/2020 04/08/2020 Moderate episode of recurrent major depressive d isorder 11/21/2019 01/03/2020 Obesity, Class II, BMI 35-39.9 10/13/2019 1 Last Assessment & Plan: Assessment: BMI 38.74 documented as of this encounter (statuses as of 11/19/2021) [facility] Narrative* Problem Noted Date Resolved Date Obesity 09/03/2020 11/29/2020 Abdominal pain 02/01/2020 04/08/2020 Moderate episode of recurrent major depressive d isorder 11/21/2019 01/03/2020 Obesity, Class II, BMI 35-39.9 10/13/2019 1 Last Assessment & Plan: Assessment: BMI 38.74 documented as of this encounter (statuses as of 12/17/2021) [facility] Narrative* Problem Noted Date Resolved Date Obesity 09/03/2020 11/29/2020 Abdominal pain 02/01/2020 04/08/2020 Moderate episode of recurrent major depressive d isorder 11/21/2019 01/03/2020 Obesity, Class II, BMI 35-39.9 10/13/2019 1 Last Assessment & Plan: Assessment: BMI 38.74 documented as of this encounter (statuses as of 12/25/2021) [facility] Narrative* Problem Noted Date Resolved Date Obesity 09/03/2020 11/29/2020 Abdominal pain 02/01/2020 04/08/2020 Moderate episode of recurrent major depressive d isorder 11/21/2019 01/03/2020 Obesity, Class II, BMI 35-39.9 10/13/2019 1 Last Assessment & Plan: Assessment: BMI 38.74 documented as of this encounter (statuses as of 12/25/2021) [facility]21 History of Past illness Narrative* Problem Noted Date Resolved Date Obesity 09/03/2020 11/29/2020 Abdominal pain 02/01/2020 04/08/2020 Moderate episode of recurrent major depressive d isorder 11/21/2019 01/03/2020 Obesity, Class II, BMI 35-39.9 10/13/2019 1 Last Assessment & Plan: Assessment: BMI 38.74 documented as of this encounter (statuses as of 12/25/2021) [facility]21 History of Past illness Narrative* Problem Noted Date Resolved Date Obesity 09/03/2020 11/29/2020 Abdominal pain 02/01/2020 04/08/2020 Moderate episode of recurrent major depressive d isorder 11/21/2019 01/03/2020 Obesity, Class II, BMI 35-39.9 10/13/2019 1 Last Assessment & Plan: Assessment: BMI 38.74 documented as of this encounter (statuses as of 12/26/2021) [facility] History of Past illness Narrative* Problem Noted Date Resolved Date Obesity 09/03/2020 11/29/2020 Abdominal pain 02/01/2020 04/08/2020 Moderate episode of recurrent major depressive d isorder 11/21/2019 01/03/2020 Obesity, Class II, BMI 35-39.9 10/13/2019 1 Last Assessment & Plan: Assessment: BMI 38.74 documented as of this encounter (statuses as of 01/01/2022) [facility] History of Past illness Narrative* Problem Noted Date Resolved Date Obesity 09/03/2020 11/29/2020 Abdominal pain 02/01/2020 04/08/2020 Moderate episode of recurrent major depressive d isorder 11/21/2019 01/03/2020 Obesity, Class II, BMI 35-39.9 10/13/2019 1 Last Assessment & Plan: Assessment: BMI 38.74 documented as of this encounter (statuses as of 01/02/2022) [facility] History of Past illness Narrative* Problem Noted Date Resolved Date Obesity 09/03/2020 11/29/2020 Abdominal pain 02/01/2020 04/08/2020 Moderate episode of recurrent major depressive d isorder 11/21/2019 01/03/2020 Obesity, Class II, BMI 35-39.9 10/13/2019 1 Last Assessment & Plan: Assessment: BMI 38.74 documented as of this encounter (statuses as of 01/06/2022) [facility] History of Past illness Narrative* Problem Noted Date Resolved Date Obesity 09/03/2020 11/29/2020 Abdominal pain 02/01/2020 04/08/2020 Moderate episode of recurrent major depressive d isorder 11/21/2019 01/03/2020 Obesity, Class II, BMI 35-39.9 10/13/2019 1 Last Assessment & Plan: Assessment: BMI 38.74 documented as of this encounter (statuses as of 01/20/2022) [facility] History of Past illness Narrative* Problem Noted Date Resolved Date Obesity 09/03/2020 11/29/2020 Abdominal pain 02/01/2020 04/08/2020 Moderate episode of recurrent major depressive d isorder 11/21/2019 01/03/2020 Obesity, Class II, BMI 35-39.9 10/13/2019 1 Last Assessment & Plan: Assessment: BMI 38.74 documented as of this encounter (statuses as of 01/28/2022) [facility] History of Past illness Narrative* Problem Noted Date Resolved Date Obesity 09/03/2020 11/29/2020 Abdominal pain 02/01/2020 04/08/2020 Moderate episode of recurrent major depressive d isorder 11/21/2019 01/03/2020 Obesity, Class II, BMI 35-39.9 10/13/2019 1 Last Assessment & Plan: Assessment: BMI 38.74 documented as of this encounter (statuses as of 02/02/2022) [facility] History of Past illness Narrative* Problem Noted Date Resolved Date Obesity 09/03/2020 11/29/2020 Abdominal pain 02/01/2020 04/08/2020 Moderate episode of recurrent major depressive d isorder 11/21/2019 01/03/2020 Obesity, Class II, BMI 35-39.9 10/13/2019 1 Last Assessment & Plan: Assessment: BMI 38.74 documented as of this encounter (statuses as of 02/02/2022) [address]20-2021 History of Past illness Narrative* Problem Noted Date Resolved Date Obesity 09/03/2020 11/29/2020 Abdominal pain 02/01/2020 04/08/2020 Moderate episode of recurrent major depressive d isorder 11/21/2019 01/03/2020 Obesity, Class II, BMI 35-39.9 10/13/2019 1 Last Assessment & Plan: Assessment: BMI 38.74 documented as of this encounter (statuses as of 02/03/2022) [facility] History of Past illness Narrative* Problem Noted Date Resolved Date Obesity 09/03/2020 11/29/2020 Abdominal pain 02/01/2020 04/08/2020 Moderate episode of recurrent major depressive d isorder 11/21/2019 01/03/2020 Obesity, Class II, BMI 35-39.9 10/13/2019 1 Last Assessment & Plan: Assessment: BMI 38.74 documented as of this encounter (statuses as of 02/03/2022) [address]20-2021 History of Past illness Narrative* Problem Noted Date Resolved Date Obesity 09/03/2020 11/29/2020 Abdominal pain 02/01/2020 04/08/2020 Moderate episode of recurrent major depressive d isorder 11/21/2019 01/03/2020 Obesity, Class II, BMI 35-39.9 10/13/2019 1 Last Assessment & Plan: Assessment: BMI 38.74 documented as of this encounter (statuses as of 02/04/2022) [facility] History of Past illness Narrative* Problem Noted Date Resolved Date Obesity 09/03/2020 11/29/2020 Abdominal pain 02/01/2020 04/08/2020 Moderate episode of recurrent major depressive d isorder 11/21/2019 01/03/2020 Obesity, Class II, BMI 35-39.9 10/13/2019 1 Last Assessment & Plan: Assessment: BMI 38.74 documented as of this encounter (statuses as of 02/06/2022) [facility] History of Past illness Narrative* Problem Noted Date Resolved Date Obesity 09/03/2020 11/29/2020 Abdominal pain 02/01/2020 04/08/2020 Moderate episode of recurrent major depressive d isorder 11/21/2019 01/03/2020 Obesity, Class II, BMI 35-39.9 10/13/2019 1 Last Assessment & Plan: Assessment: BMI 38.74 documented as of this encounter (statuses as of 02/15/2022) [facility] History of Past illness Narrative* Problem Noted Date Resolved Date Obesity 09/03/2020 11/29/2020 Abdominal pain 02/01/2020 04/08/2020 Moderate episode of recurrent major depressive d isorder 11/21/2019 01/03/2020 Obesity, Class II, BMI 35-39.9 10/13/2019 1 Last Assessment & Plan: Assessment: BMI 38.74 documented as of this encounter (statuses as of 02/18/2022) [facility] History of Past illness Narrative* Problem Noted Date Resolved Date Obesity 09/03/2020 11/29/2020 Abdominal pain 02/01/2020 04/08/2020 Moderate episode of recurrent major depressive d isorder 11/21/2019 01/03/2020 Obesity, Class II, BMI 35-39.9 10/13/2019 1 Last Assessment & Plan: Assessment: BMI 38.74 documented as of this encounter (statuses as of 03/05/2022) [address]20-2021 History of Past illness Narrative* Problem Noted Date Resolved Date Obesity 09/03/2020 11/29/2020 Abdominal pain 02/01/2020 04/08/2020 Moderate episode of recurrent major depressive d isorder 11/21/2019 01/03/2020 Obesity, Class II, BMI 35-39.9 10/13/2019 1 Last Assessment & Plan: Assessment: BMI 38.74 documented as of this encounter (statuses as of 03/05/2022) [address]20-2021 History of Past illness Narrative* Problem Noted Date Resolved Date Obesity 09/03/2020 11/29/2020 Abdominal pain 02/01/2020 04/08/2020 Moderate episode of recurrent major depressive d isorder 11/21/2019 01/03/2020 Obesity, Class II, BMI 35-39.9 10/13/2019 1 Last Assessment & Plan: Assessment: BMI 38.74 documented as of this encounter (statuses as of 03/07/2022) [facility] History of Past illness Narrative* Problem Noted Date Resolved Date Obesity 09/03/2020 11/29/2020 Abdominal pain 02/01/2020 04/08/2020 Moderate episode of recurrent major depressive d isorder 11/21/2019 01/03/2020 Obesity, Class II, BMI 35-39.9 10/13/2019 1 Last Assessment & Plan: Assessment: BMI 38.74 documented as of this encounter (statuses as of 03/30/2022) [address]20-2021 History of Past illness Narrative* Problem Noted Date Resolved Date Obesity 09/03/2020 11/29/2020 Abdominal pain 02/01/2020 04/08/2020 Moderate episode of recurrent major depressive d isorder 11/21/2019 01/03/2020 Obesity, Class II, BMI 35-39.9 10/13/2019 1 Last Assessment & Plan: Assessment: BMI 38.74 documented as of this encounter (statuses as of 06/14/2022) [facility] History of Past illness Narrative* Problem Noted Date Resolved Date Obesity 09/03/2020 11/29/2020 Abdominal pain 02/01/2020 04/08/2020 Moderate episode of recurrent major depressive d isorder 11/21/2019 01/03/2020 Obesity, Class II, BMI 35-39.9 10/13/2019 1 Last Assessment & Plan: Assessment: BMI 38.74 documented as of this encounter (statuses as of 06/18/2022) [facility] Emergency department Note* Nabila Childs RN [...] 07/02/2020 2:36 PM EDT Emergency Department Report [facility] EMERGENCY DEPARTMENT Service Date:.07/02/20 PCP: [...] Social Gatherings with Friends and Family: Attends Anabaptism Services: Active Member of Clubs or Organizations: [...] POSITIVE ANTIBODY SCREEN NEGATIVE ARM BAND NUMBER [id number] URINALYSIS, MACRO Result Value Ref Range COLOR, [...] H&H is stable. She was started on Kinney and Zofran. 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 Chart was 5 to the PROCUREMENT PROFESSIONAL's office. 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 She is discharged [...] sounds are clear. Mucous membranes are well-hydrated Vuaghn Ceja MD 07/02/20 1251 * Sonia Ramirez RN - 07/02/2020 12:38 PM EDT Pt c/o RLQ pain since yesterday. Also having vaginal bleeding with large clots [facility] Plan note Future Appointments Appointment Date:07/23/2022 01:00:00 PM Scheduled Provider: [facility]oint[facility] Type:CV Echo (FT) Appointment Date:09/07/2022 11:00:00 AM Scheduled Provider:Jamil PRICE MD Location:[facility] Appointment Type:URO New Patient Future Scheduled Tests Radiology* US Renal 06/10/22 * Echo Transthoracic Complete 07/23/22 [facility]05-24-2020 Evaluation + Plan note Future Appointments Appointment Date:07/07/2022 11:00:00 AM Scheduled Provider: [facility] Appointment Type:CV Echo (FT) Appointment Date:07/08/2022 01:00:00 PM Scheduled Provider:Chetna Jack MD [facility] Type:Cardiology New Patient (FT) Future Scheduled Tests Radiology* US Renal 06/10/22 * Echo Transthoracic [facility]07[facility]ments Appointment Date:06/11/2022 03:00:00 PM Scheduled Provider:Chetna Jack MD [facility] Type:Cardiology New Patient (FT) Future Scheduled Tests Radiology* US [facility]al [facility]10[facility]ments Appointment Date:09/07/2022 11:00:00 AM Scheduled Provider:Jamil PRICE MD Location:[facility] Appointment Type:URO New Patient Future Scheduled Tests Radiology* US Renal [facility]10/22 [facility] Future Appointments Appointment Date:01/20/2023 10:00:00 AM Scheduled Provider:Rajni Rouse MD Location:[facility] Appointment Type:URO Office Visit Future Scheduled Tests Radiology* US Renal 06/10/22 [facility] evaluation + Plan note Future Appointments Appointment Date:10/21/2022 02:20:00 PM Scheduled Provider:Jaquan Paula Location:[facility] Appointment Type: ER/Hospital Follow Up Appointment Date:11/20/2022 02:40:00 PM Scheduled Provider: Location:[facility] Appointment Type: Lab Draw Appointment Date:01/20/2023 10:00:00 AM Scheduled Provider:Rajni Rouse MD Location:[facility] Appointment Type:URO Office Visit Future Scheduled Tests Laboratory* T3 Free 10/07/22 * Thyroid Stimulating Hormone 10/07/22 * Free T4 10/07/22 Radiology* US Renal [facility]10[facility] App[facility]ments Appointment Date:11/19/2022 02:30:00 PM Scheduled Provider:Odilon Strange MD [facility] [place] Appointment Type:Cardiology New Patient (FT) Appointment Date:01/20/2023 10:00:00 AM Scheduled Provider:Rajni Rouse MD Location:[facility] Appointment Type:URO Office Visit Future Scheduled Tests Radiology* US Renal 06/10/22 [facility] App[facility]ments Appointment Date:07/13/2023 08:20:00 AM Scheduled Provider:OLGA GATICA PA-C Location:[facility] Appointment Type:URO Office Visit Appointment Date:08/04/2023 09:45:00 AM Scheduled Provider:Rajni Rouse MD Location:[facility] Appointment Type:URO Office Visit Future Scheduled Tests Radiology* US Renal 06/10/22 [facility] Diagnosis Complex ovarian cyst- Primary Other and unspecified ovarian cyst Uterine leiomyoma, unspecified location [facility] Diagnosis Contusion of right thumb without damage to nail, initial encounter- Primary documented in this encounter [employer] Phone: evaluation note* Diagnosis 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 [facility] Diagnosis Acetabular labrum tear, right, initial encounter- Primary documented in this encounter [facility] note* Diagnosis Tear of right acetabular labrum, subsequent encounter- Primary documented in this encounter [facility] note* Diagnosis Tear of right acetabular labrum, subsequent encounter- Primary Tear of right acetabular labrum, subsequent encounter documented in this encounter [facility] note* Diagnosis Generalized abdominal pain- Primary Abdominal pain, generalized documented in this encounter [employer] Phone: evalcdrory note* Diagnosis Tear of right acetabular labrum, subsequent encounter- Primary documented in this encounter [facility] noteNoVycor Medical Other Evaluation noteNo InformationLoveSpace Other Evaluation note* Diagnosis S/P laparoscopic sleeve gastrectomy- Primary Bariatric surgery status Obesity, Class I, BMI 30-34.9 Obesity, unspecified Dietary counseling and surveillance Dietary surveillance and counseling documented in this encounter [facility] note* Diagnosis Tear of right acetabular labrum, subsequent encounter- Primary documented in this encounter [facility] note* Diagnosis Dental infection- Primary Acute apical periodontitis of pulpal origin documented in this encounter [employer] Phone: evaltwahor note* Diagnosis Gastroesophageal reflux disease, unspecified whether esophagitis present- Primary Bariatric surgery status Weight disorder Other symptoms concerning nutrition, metabolism, and development Class 1 obesity with serious comorbidity and body mass index (BMI) of 31.0 to 31.9 in adult, unspecified obesity type S/P laparoscopic sleeve gastrectomy Bariatric surgery status Dietary counseling and surveillance Dietary surveillance and counseling documented in this encounter [facility] note* Diagnosis Gastroesophageal reflux disease without esophagitis- Primary Esophageal reflux [facility] Diagnosis Gastroesophageal reflux disease without esophagitis- Primary Esophageal reflux S/P laparoscopic sleeve gastrectomy Bariatric surgery status [facility] Diagnosis Regurgitation of food- Primary Gastroesophageal reflux disease, unspecified whether esophagitis present [facility] Diagnosis Regurgitation of food Gastroesophageal reflux disease, unspecified whether esophagitis present documented in this encounter [facility] note* Diagnosis Gastroesophageal reflux disease without esophagitis Esophageal reflux [facility]* Diagnosis Gastroesophageal reflux disease, unspecified whether esophagitis present- Primary [facility]* Diagnosis Gastroesophageal reflux disease with esophagitis without hemorrhage- Primary RICHAR (obstructive sleep apnea) Obstructive sleep apnea (adult) (pediatric) Class 1 obesity with serious comorbidity and body mass index (BMI) of 33.0 to 33.9 in adult, unspecified obesity type S/P laparoscopic sleeve gastrectomy Bariatric surgery status Weight disorder Other symptoms concerning nutrition, metabolism, and development documented in this encounter [facility] note* Diagnosis Pre-op evaluation- Primary Preoperative [...] esophagitis without hemorrhage [facility] Diagnosis S/P bariatric surgery- Primary Bariatric surgery status Postoperative pain Other acute postoperative pain Primary osteoarthritis involving multiple joints [facility] Diagnosis S/P gastric surgery- Primary Other postprocedural status Dietary counseling Dietary surveillance and counseling [facility] Diagnosis Postoperative pain Other acute postoperative pain [facility]* Diagnosis Acetabular labrum tear, right, subsequent encounter- Primary [facility]* Diagnosis Esophageal dysphagia- Primary Dysphagia, pharyngoesophageal phase S/P gastric bypass Bariatric surgery status Postoperative malabsorption Other and unspecified postsurgical nonabsorption [facility]* Diagnosis Esophageal dysphagia Dysphagia, pharyngoesophageal phase S/P gastric bypass Bariatric surgery status S/P bariatric surgery Bariatric surgery status documented in this encounter [facility] note* Diagnosis Polyarthralgia- Primary Pain in joint, multiple sites Malaise and fatigue Other malaise and fatigue Subjective fever S/P laparoscopic sleeve gastrectomy Bariatric surgery status History of syncope Other specified personal history presenting hazards to health History of adrenal insufficiency Personal history of other endocrine, metabolic, and immunity disorders Hypothyroidism, unspecified type documented in this encounter [facility] note* Diagnosis Encounter to discuss test results- Primary Other specified counseling NO SHOW documented in this encounter [facility] note* Diagnosis Constipation, unspecified constipation type- Primary Nausea Nausea alone Rash of face Rash and other nonspecific skin eruption Enlarged lymph nodes Enlargement of lymph nodes documented in this encounter [facility] note* Diagnosis Vernal conjunctivitis of both eyes- Primary documented in this encounter [facility] note* Diagnosis Rash and nonspecific skin eruption- Primary Rash and other nonspecific skin eruption Pain in eye, unspecified laterality Facial edema Edema documented in this encounter [facility] note* Diagnosis Encounter for surgical aftercare following surgery of digestive system- Primary Aftercare following surgery of the teeth, oral cavity and digestive system, NEC Impaired intestinal absorption Unspecified intestinal malabsorption Esophageal dysphagia Dysphagia, pharyngoesophageal phase Gastroesophageal reflux disease, unspecified whether esophagitis present S/P bariatric surgery Bariatric surgery status documented in this encounter [facility] note* Diagnosis ARSALAN (generalized anxiety disorder)- Primary Generalized anxiety disorder Panic disorder without agoraphobia Moderate recurrent major depression (HCC) Major depressive disorder, recurrent episode, moderate documented in this encounter [facility] note* Diagnosis Postoperative malabsorption- Primary Other and unspecified postsurgical nonabsorption S/P gastric bypass Bariatric surgery status Overweight (BMI 25.0-29.9) Overweight Dietary counseling and surveillance Dietary surveillance and counseling documented in this encounter [facility] note* Diagnosis ARSALAN (generalized anxiety disorder)- Primary Generalized anxiety disorder Panic disorder without agoraphobia Moderate recurrent major depression (HCC) Major depressive disorder, recurrent episode, moderate documented in this encounter [facility] note* Diagnosis Epigastric pain- Primary Abdominal pain, epigastric documented in this encounter [facility] note* Diagnosis Back strain, initial encounter- Primary documented in this encounter [facility] note* Diagnosis Generalized abdominal pain- Primary Abdominal pain, generalized documented in this encounter [facility] note* Diagnosis Nausea- Primary Nausea alone documented in this encounter [facility] note* Diagnosis Gastroesophageal reflux disease, unspecified whether esophagitis present documented in this encounter [facility] note* Diagnosis Generalized anxiety disorder documented in this encounter [facility] note* Diagnosis Nausea- Primary Nausea alone RUQ pain Abdominal pain, right upper quadrant History of cholecystectomy Other acquired absence of organ documented in this encounter [facility] note* Diagnosis Dehydration- Primary RUQ pain Abdominal pain, right upper quadrant documented in this encounter [facility] note* Diagnosis Right knee pain, unspecified chronicity- Primary documented in this encounter [facility] note* Diagnosis Post-operative pain- Primary Other acute postoperative pain 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 documented in this encounter [facility] note* Diagnosis Dehydration- Primary Nausea Nausea alone RUQ pain Abdominal pain, right upper quadrant documented in this encounter [facility] note* Diagnosis RUQ pain- Primary Abdominal pain, right upper quadrant Chronic nausea Nausea alone documented in this encounter [facility] note* Diagnosis Chronic nausea Nausea alone RUQ pain Abdominal pain, right upper quadrant documented in this encounter [facility] note* Diagnosis Abdominal pain, unspecified abdominal location- Primary documented in this encounter [facility] note* Diagnosis Generalized abdominal pain- Primary Abdominal pain, generalized documented in this encounter [facility] note* Diagnosis Nausea Nausea alone RUQ pain Abdominal pain, right upper quadrant History of cholecystectomy Other acquired absence of organ documented in this encounter [facility] note* Diagnosis Median arcuate ligament syndrome (HCC)- Primary Celiac artery compression syndrome Neuralgia and neuritis Neuralgia, neuritis, and radiculitis, unspecified documented in this encounter [facility] note* Diagnosis Chronic pain syndrome- Primary 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 documented in this encounter [facility] note* Diagnosis Median arcuate ligament syndrome (HCC)- Primary Celiac artery compression syndrome 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 documented in this encounter [facility] noteNo assessment information availableAultman Orr[facility] Work Phone: Evaluation note* Diagnosis Median arcuate ligament syndrome (CMS/HCC)- Primary Celiac artery compression syndrome PONV (postoperative nausea and vomiting) Nausea with vomiting RICHAR (obstructive sleep apnea) Obstructive sleep apnea (adult) (pediatric) Asthma Unspecified asthma Anxiety Anxiety state, unspecified Osteoarthritis Osteoarthrosis, unspecified whether generalized or localized, unspecified site Depression Depressive disorder, not elsewhere classified documented in this encounter [facility] Work Phone: Evaluation note* Diagnosis Abdominal pain- Primary Abdominal pain, unspecified site Abdominal pain Abdominal pain, unspecified site Nausea and vomiting, unspecified vomiting type History of gastric bypass Median arcuate ligament syndrome (CMS/HCC) Celiac artery compression syndrome documented in this encounter [facility] Work Phone: Evaluation note* Diagnosis Median arcuate ligament syndrome (CMS/HCC)- Primary Celiac artery compression syndrome documented in this encounter [facility] Work Phone: Evaluation note* Diagnosis Bariatric surgery status- Primary Dietary zinc deficiency Mineral deficiency, not elsewhere classified Vitamin D deficiency Unspecified vitamin D deficiency [facility] Diagnosis Gastroesophageal reflux disease, unspecified whether esophagitis present- Primary Constipation, unspecified constipation type [facility] Diagnosis Nausea and vomiting, unspecified vomiting type- Primary [facility] Diagnosis Neuralgia and neuritis- Primary Neuralgia, neuritis, and radiculitis, unspecified Gastroesophageal reflux disease without esophagitis Esophageal reflux 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 S/P gastric bypass Bariatric surgery status [facility] Diagnosis ARSALAN (generalized anxiety disorder)- Primary Generalized anxiety disorder Panic disorder without agoraphobia Moderate recurrent major depression (HCC) Major depressive disorder, recurrent episode, moderate [facility] Diagnosis Sudden onset of severe abdominal pain- Primary Abdominal pain, unspecified site Nausea and vomiting, unspecified vomiting type PEG (percutaneous endoscopic gastrostomy) status (HCC) Gastrostomy status [facility]* Diagnosis Median arcuate ligament syndrome (CMS-HCC)- Primary Celiac artery compression syndrome documented in this encounter [facility] Work Phone: Evaluation note* Diagnosis Epigastric pain- [...] Nausea with vomiting documented in this encounter [facility] Work Phone: Evaluation note* Diagnosis Urinary frequency- Primary Urgency of urination documented in this encounter [facility] note* Diagnosis Screening for genitourinary condition Screening for other and unspecified genitourinary condition documented in this encounter [facility] note* Diagnosis ARSALAN (generalized anxiety disorder)- Primary Generalized anxiety disorder Panic disorder without agoraphobia Moderate recurrent major depression (HCC) Major depressive disorder, recurrent episode, moderate documented in this encounter [facility] note* Diagnosis Onset Date Resolution Status Intractable vomiting with nausea acute Small bowel obstruction acut e [facility] Work Phone: Evaluation note* Diagnosis Onset Date Resolution Status Intractable vomiting with nausea acute Small bowel obstruction acut e Status post gastric bypass for obesity acute [facility] Work Phone: Evaluation note* Diagnosis Chronic nausea- Primary Nausea alone History of laparoscopic partial gastrectomy Personal history of surgery to other organs History of sphincterotomy of sphincter of Oddi Other postprocedural status 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 documented in this encounter [facility] note* Diagnosis Chronic abdominal pain- Primary Abdominal pain, unspecified site Gastroesophageal reflux disease without esophagitis Esophageal reflux Neuralgia and neuritis Neuralgia, neuritis, and radiculitis, unspecified 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 S/P gastric bypass Bariatric surgery status documented in this encounter [facility] note* Diagnosis Gastroesophageal reflux disease without esophagitis Esophageal reflux Neuralgia and neuritis Neuralgia, neuritis, and radiculitis, unspecified 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 Chronic abdominal pain Abdominal pain, unspecified site S/P gastric bypass Bariatric surgery status documented in this encounter [facility] note* Diagnosis Gastroesophageal reflux disease without esophagitis Esophageal reflux Neuralgia and neuritis Neuralgia, neuritis, and radiculitis, unspecified 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 Chronic abdominal pain Abdominal pain, unspecified site S/P gastric bypass Bariatric surgery status [facility] Diagnosis Neuralgia and neuritis- Primary Neuralgia, neuritis, and radiculitis, unspecified 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 [facility] [email or web address] Other History general Narrative - Reported* Type [...] 2020 Hospitalization History childbirths Hospitalization History [facility] 2019 Hospitalization History [facility] axel-gastritis 1 03/2020 [employer] Other Hisjdjv general Narrative - Reported* Type Description Date [...] 03/20/2021 Hospitalization History childbirths Hospitalization History [facility] 2019 Hospitalization History [facility] axel-gastritis 1 03/2020 [employer] Other History of Present illness Narrative* Sherry Magaña MD - 04/20/2023 3:45 PM EST And I had a phone conversation patient and I had a phone conversation as she was at home in the state of [place] and I was [facility]. She is recovering from a laparotomy for [...] she has seen her general surgeon at [facility] and will be following up with her gastro enterologist at the clinic. I will see her back by virtual visit in 2 months documented in this [facility] Work Phone: Hospital course Narrative No data available for this section [facility] Discharge instructions* Attachments The following attachments cannot be sent through Care Everywhere. * Uterine Fibroids (Uzbek) * Ovarian Cyst: Hemorrhagic (Uzbek) documented in this [facility] Discharge instructions* Attachments The following attachments cannot be sent through Care Everywhere. * Finger: Bruises (Uzbek) * Subungual Hematoma (Uzbek) documented in this [facility] Work Phone: Hospital Discharge instructions* Attachments The following attachments cannot be sent through Care Everywhere. * Abdominal Pain (Uzbek) [facility] Discharge instructions No data available for this section [facility] Discharge instructions* Attachments The following attachments cannot be sent through Care Everywhere. * Abdominal Pain (Uzbek) documented in this [facility] Discharge instructions Additional Instructions Please take medications as prescribed. Return to ER or follow-up with PCP or GI specialist if symptoms worsen. 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.[facility] Work Phone: Hospital Discharge instructions Additional [...] fever vomiting despite medication or any other [facility] Work Phone: Hospital Discharge instructions Additional Instructions [facility] to manage care: - Full code - Routine vital signs - NPO - Maintain central line, routine care per protocol - Decompress the J-tube by placing it to gravity drain when she does develop nauseaA[facility] Work Phone: Hospital Discharge instructions Additional Instructions Follow up with your [facility] surgeon Return to the ED if you develop worsening symptoms or [facility] Work Phone: Progress note No data available for this section [facility] for referral (narrative)* Consultation (Routine) - New Request Specialty Diagnoses / Procedures Referred By Contac t Referred To Contact [facility] Diagnoses Articular cartilage disorder of right knee Lucie oMra MD [address] [place] [address] Referral ID Status Reason Start Date Expiration Date V isits Requested Visits Authorized [id number] New Request 06/02/2021 06/27/2022 1 1 [facility] for referral (narrative)* Diagnostic Procedure Only (Routine) - Closed Specialty Diagnoses / Procedures Referred By Contac t Referred To Contact XR IMAGING Diagnoses Acetabular labrum tear, right, initial encounter Procedures XR HIP GENERAL 3V PELV/AP/LAT RIGHT RADEX HIP UNILATERAL WITH PELVIS 2-3 VIEWS Kuldip Yousif MD [address] [place] [address] Xr Imaging Referral ID Status Reason Start Date Expiration Date V isits Requested Visits Authorized [id number] Closed Auto-Generate d Referral 06/18/2021 07/18/2022 1 1 [facility] for referral (narrative)* Outpatient Procedure (Routine) - Pending Review Specialty Diagnoses / Procedures [facility] Diagnoses Gastroesophageal reflux disease without esophagitis Procedures EGD - THERAPEUTIC, EUS, OR TUBE INTERVENTIONS ESOPHAGOGASTRODUODENOSC [place] [address] [address] [place] [id number] [place] [phone] Referral ID Status Reason Start Date Expiration Date Visits Requested Visits Authorized [id number] Pending Review Auto-Generat ed Referral 11/17/2021 11/17/2022 1 1 [facility] for referral (narrative)* Outpatient Procedure (Routine) - Authorized Specialty Diagnoses / Procedures [facility] To [facility] Diagnoses Gastroesophageal reflux disease without esophagitis S/P laparoscopic sleeve gastrectomy Procedures PH IMPEDANCE INSERT OFF MEDS ESOPHGL FUNCJ G-ESOP RFLX IMPD ELTRD PROLBreanna Orona APRN.LABEL FOLDER [address] [place] [address] [address] Referral ID Status Reason Start Date Expiration Date Visits Requested Visits Authorized [id number] Authorized Auto-Generat ed Referral 11/19/2021 11/18/2022 1 1 [facility] for referral (narrative)* Outpatient Procedure (Routine) - Pending Review Specialty Diagnoses / Procedures [facility] To [facility] Diagnoses Regurgitation of food Gastroesophageal reflux disease, unspecified whether esophagitis present Procedures PH HUERTA INSERT OFF MEDS GASTROESOPHAG REFLX TEST W/TELEMTRY PH ELTRBreanna Lazaro APRN.LABEL FOLDER [address] [place] [address] [facility] [address] [place] [address] Referral ID Status Reason Start Date Expiration Date Visits Requested Visits Authorized [id number] Pending Review Auto-Generat ed Referral 2 12/17/2022 1 1 [facility] for referral (narrative)* Outpatient Procedure (Routine) - Closed Specialty Diagnoses / Procedures Referred By Contac t Referred To Contact [facility] Diagnoses Gastroesophageal reflux disease without esophagitis Procedures EGD - THERAPEUTIC, EUS, OR TUBE INTERVENTIONS ESOPHAGOGASTRODUODENOSC OPY [place] [address] [place] [address] [facility] [address] [place] [address] Referral ID Status Reason Start Date Expiration Date V isits Requested Visits Authorized [id number] Closed Auto-Generate d Referral 11/17/2021 11/17/2022 1 1 [facility] for referral (narrative)* Outpatient Procedure (Routine) - Pending Review Specialty Diagnoses / Procedures [facility] Referred [facility] Diagnoses Pre-op evaluation Procedures ECG COMPLETE ECG ROUTINE ECG W/LEAST 12 LDS W/I&R Ioana Hogan PA-C [address] [place] [address] [place] [place] [address] Referral ID Status Reason Start Date Expiration Date Visits Requested Visits Authorized [id number] Pending Review Auto-Generat ed Referral 2 01/28/2023 1 1 [facility] for referral (narrative)* Outpatient Procedure (Routine) - Authorized Specialty Diagnoses / Procedures Referred By Contac t Referred To Contact [facility] Diagnoses Esophageal dysphagia S/P gastric bypass Procedures EGD - THERAPEUTIC, EUS, OR TUBE INTERVENTIONS EGD BALLOON DILATION ESOPHAGUS <30 MM DIAM Breanna Stern APRN.CNP [address] [place] [address] [address] Referral ID Status Reason Start Date Expiration Date Visits Requested Visits Authorized [id number] Authorized Auto-Generat ed Referral 03/05/2022 03/05/2023 1 1 [facility] for referral (narrative)* Outpatient Procedure (Routine) - Closed Specialty Diagnoses / Procedures Referred By Jazmine t Referred To Contact [facility] Diagnoses Esophageal dysphagia S/P gastric bypass Procedures EGD - THERAPEUTIC, EUS, OR TUBE INTERVENTIONS EGD BALLOON DILATION ESOPHAGUS <30 MM DIAM Breanna Stern APRN.CNP [address] [place] [address] [facility] [address] [address] Referral ID Status Reason Start Date Expiration Date V isits Requested Visits Authorized [id number] Closed Auto-Generate d Referral 03/05/2022 03/05/2023 1 1 [facility] for referral (narrative)* Outpatient Procedure (Routine) - Pending Review Specialty Diagnoses / Procedures Referred By Jazmine t Referred To Contact [facility] Diagnoses Constipation, unspecified constipation type Procedures [facility] ANORECTAL MANOMETRY ANORECTAL MANOMETRY Kasie Avalos MD [address] [place] [address] [place] [phone] Referral ID Status Reason Start Date Expiration Date Visits Requested Visits Authorized [id number] Pending Review Auto-Generat ed Referral 07/22/2022 07/23/2023 1 1 [facility] for referral (narrative)* Diagnostic Procedure Only (Routine) - Pending Review Specialty Diagnoses / Procedures Referred By Contac t Referred To Contact XR IMAGING Diagnoses S/P bariatric surgery Gastroesophageal reflux disease, unspecified whether esophagitis present Procedures XR UPPER GI ROUTINE DOUBLE CONTRAST/AIR RADIOLOGIC EXAM UPR GI TRC DOUBLE CONTRAST STUDY Breanna Stern, DARRYL [address] [place] [address] Xr Imaging Referral ID Status Reason Start Date Expiration Date Visits Requested Visits Authorized [id number] Pending Review Auto-Generat ed Referral 09/18/2022 10/18/2023 1 1 [facility] for referral (narrative)* Outpatient Procedure (Routine) - Authorized Specialty Diagnoses / Procedures [facility] Referred To [facility] Diagnoses Epigastric pain Procedures EGD DIAGNOSTIC ESOPHAGOGASTRODUODENOSC OPY [place] [address] [place] [address] [facility] [address] [place] [phone] Referral ID Status Reason Start Date Expiration Date Visits Requested Visits Authorized [id number] Authorized Auto-Generat ed Referral 10/20/2022 10/21/2023 1 1 [facility] for referral (narrative)* Diagnostic Procedure Only (Routine) - Closed Specialty Diagnoses / Procedures [facility] Referred To Contact US IMAGING Diagnoses Nausea RUQ pain History of cholecystectomy Procedures US ABD RIGHT UPPER QUADRANT US ABDOMINAL REAL TIME W/[place] [address] [place] [address] Us [facility] Referral ID Status Reason Start Date Expiration Date V isits Requested Visits Authorized [id number] Closed Auto-Generate d Referral 11/04/2022 12/04/2023 1 1 * Diagnostic Procedure Only (Routine) - Authorized Specialty Diagnoses / Procedures Referred By Contact Referred To Contact [facility] Diagnoses Nausea RUQ pain History of cholecystectomy Procedures NM HEPATOBILIARY W EF AND/OR RX HEPATOBIL SYST IMAG INC GB W/[place] [address] [place] [address] [facility] [address] [place] [phone] Referral ID Status Reason Start Date Expiration Date Visits Requested Visits Authorized [id number] Authorized Auto-Generat ed Referral 11/04/2022 12/04/2023 1 1 [facility] for referral (narrative)* Diagnostic Procedure Only (Routine) - Pending Review Specialty Diagnoses / Procedures Referred By Contac t Referred To Contact XR IMAGING Diagnoses Right knee pain, unspecified chronicity Procedures XR KNEE GENERAL 4V AP BOTH/PA BOTH/LAT/MERC RIGHT RADIOLOGIC EXAM KNEE COMPLETE 4/MORE VIEWS Agustin Salmeron PA-C [address] [place] [address] Xr Imaging [place] [address] Referral ID Status Reason Start Date Expiration Date Visits Requested Visits Authorized [id number] Pending Review Auto-Generat ed Referral 11/04/2022 12/04/2023 1 1 [facility] for referral (narrative)* Outpatient Procedure (Urgent) - Authorized Specialty Diagnoses / Procedures Referred By Contac t Referred [facility] Diagnoses Chronic nausea RUQ pain Procedures US MESENTERIC ARTERY CMPLT VAS LAB DUP-SCAN ARTL TIARA ABDL/PEL/SCROT&/[place] [address] [place] [address] [facility] [address] [place] [address] Referral ID Status Reason Start Date Expiration Date Visits Requested Visits Authorized [id number] Authorized Auto-Generat ed Referral 11/23/2022 11/23/2023 1 1 [facility] for referral (narrative)* Outpatient Procedure (Urgent) - Closed Specialty Diagnoses / Procedures [facility] Ref[facility] Diagnoses Chronic nausea RUQ pain Procedures US MESENTERIC ARTERY CMPLT VAS LAB DUP-SCAN ARTL TIARA ABDL/PEL/SCROT&/[place] [address] [place] [address] [facility] [address] [address] Referral ID Status Reason Start Date Expiration Date V isits Requested Visits Authorized [id number] Closed Auto-Generate d Referral 11/23/2022 11/23/2023 1 1 [facility] for referral (narrative)* Diagnostic Procedure Only (Routine) - Closed Specialty Diagnoses / Procedures [facility] Referred To Contact US IMAGING Diagnoses Nausea RUQ pain History of cholecystectomy Procedures US ABD RIGHT UPPER QUADRANT US ABDOMINAL REAL [place] W/[place] [address] [place] [address] [place] [address] Referral ID Status Reason Start Date Expiration Date V isits Requested Visits Authorized [id number] Closed Auto-Generate d Referral 11/04/2022 12/04/2023 1 1 [facility] for referral (narrative)* Outpatient Procedure (Routine) - Authorized Specialty Diagnoses / Procedures [facility] Referred To Contact [facility] Diagnoses Gastroesophageal reflux disease, unspecified whether esophagitis present Procedures PH HUERTA INSERT ON MEDS GASTROESOPHAG REFLX TEST W/TELEMTRY PH Kasie Sherman MD [address] [place] [address] [facility] [address] [place] [address] Referral ID Status Reason Start Date Expiration Date Visits Requested Visits Authorized [id number] Authorized Auto-Generat ed Referral 04/28/2023 04/27/2024 1 1 * Outpatient Procedure (Routine) - Authorized Specialty Diagnoses / Procedures Referred By Jazmine t Referred To Contact [facility] Diagnoses Gastroesophageal reflux disease, unspecified whether esophagitis present Procedures EGD - THERAPEUTIC, EUS, OR TUBE INTERVENTIONS ESOPHAGOGASTRODUODENOSC OPY TRANSORAL DIAGNOSTIC Kasie Avalos MD [address] [place] [address] [address] Referral ID Status Reason Start Date Expiration Date Visits Requested Visits Authorized [id number] Authorized Auto-Generat ed Referral 04/28/2023 04/27/2024 1 1 [facility] for visit NarrativeGeneral Surgery Referral [facility] [email or web address] Other Reason for visit Narrative* Outpatient Procedure (Routine) - Closed Specialty Diagnoses / Procedures Referred By Jazmine hooks Referred To Contact [facility] Diagnoses Gastroesophageal reflux disease without esophagitis Procedures EGD - THERAPEUTIC, EUS, OR TUBE INTERVENTIONS ESOPHAGOGASTRODUODENOSC OPY [place] [address] [place] [address] [address] Referral ID Status Reason Start Date Expiration Date V isits Requested Visits Authorized [id number] Closed Auto-Generate d Referral 11/17/2021 11/17/2022 1 1 [facility] for visit Narrative* Outpatient Procedure (Routine) - Closed Specialty Diagnoses / Procedures Referred By Jazmine hooks Referred To Contact [facility] Diagnoses Esophageal dysphagia S/P gastric bypass Procedures EGD - THERAPEUTIC, EUS, OR TUBE INTERVENTIONS EGD BALLOON DILATION ESOPHAGUS <30 MM DIAM Breanna Stern, SLIM.LABEL FOLDER [address] [place] [address] [address] Referral ID Status Reason Start Date Expiration Date V isits Requested Visits Authorized [id number] Closed Auto-Generate d Referral 03/05/2022 03/05/2023 1 1 [facility] for visit Narrative* Outpatient Procedure (Urgent) - Closed Specialty Diagnoses / Procedures Referred By Jazmine t Referred To Contact [facility] Diagnoses Chronic nausea RUQ pain Procedures US MESENTERIC ARTERY CMPLT VAS LAB DUP-SCAN ARTL TIARA ABDL/PEL/SCROT&/[place] [address] [place] [address] [facility] [place] [address] [place] [address] Referral ID Status Reason Start Date Expiration Date V isits Requested Visits Authorized [id number] Closed Auto-Generate d Referral 11/23/2022 11/23/2023 1 1 [facility] for visit Narrative* Diagnostic Procedure Only (Routine) - Closed Specialty Diagnoses / Procedures Referred By Jazmine hooks Referred To Contact US IMAGING Diagnoses Nausea RUQ pain History of cholecystectomy Procedures US ABD RIGHT UPPER QUADRANT US ABDOMINAL REAL [place] W/[place] [address] [place] [address] [facility] Referral ID Status Reason Start Date Expiration Date V isits Requested Visits Authorized [id number] Closed Auto-Generate d Referral 11/04/2022 12/04/2023 1 1 [facility] Summary Purpose Family History No Family [...] FoundDocuments on File Type Date Recorded 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 Advance Directive(s) 03/13/2021 9:49 AM Date Activated Date Inactivated Comments 12/06/2022 9:37 PM 12/09/2022 8:48 PM Question Answer Comments Full Code Order Discussed With: Patient Date Activated Date Inactivated Comments 11/22/2022 8:03 PM 11/23/2022 5:11 PM Question Answer Comments Full Code Order Discussed With: Patient Documents on File Type Date Recorded 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 Advance Directive(s) 03/13/2021 9:49 AM [...] Documents on File Type Date Recorded 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 Advance Directive(s) 07/04/2021 4:13 PM [...] Documents on File Type Date Recorded 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 Advance Directive(s) 03/13/2021 9:49 AM [...] with Follow Up in 24 Hours ([facility]) ([place]zbek) documented in this encounter Assessments Diagnosis Lower abdominal pain- Primary Abdominal pain, other specified site Reason for Referral Status Reason Specialty Diagnoses / Procedures Referre d By Contact Referred To Contact Closed Procedures US PELVIC WITH TRANSVAGINAL WITH DOPPLER Juanito Laird PA-C [address] [place] [address] Specialty Diagnoses / Procedures Referred By Contact Referred To Contact [facility] Diagnoses Tear of right acetabular labrum, subsequent encounter Procedures CONSULT TO PHYSICAL THERAPY PHYSICAL THERAPY EVALUATION HIGH COMPLEX 45 MINS Justine Shabazz PA-C [address] [place] [address] [facility] [address] [place] [address] Referral ID Status Reason Start Date Expiration Date Visits Requested Visits Authorized [id number] Pending Review Auto-Generat ed Referral 06/23/2021 06/23/2022 1 1 Reason 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 - Please request Dr. Keven Gomez [phone] Diagnosis 1 Hernia (K46.9) Referral Organization [facility] Family Priscila Guo Referring Provider First Name Shanna Referring Provider Last Name Slade Referring Provider Specialty Nurse Ramona castañeda Referred Organization [facility] Referred Address [address] [facility],[place], [place],[address] Referred Provider Specialty General Surg ammon Referral Priority Routine Specialty Diagnoses / Procedures Referred By Jazmine hooks Referred To Contact Diagnoses S/P laparoscopic sleeve gastrectomy Procedures CONSULT TO BARIATRIC NUTRITION OFFICE/OUTPATIENT [facility] 60-74 MINUTES Sabina Joy APRN.LABEL FOLDER [address] [place] [address] Referral ID Status Reason Start Date Expiration Date Visits Requested Visits Authorized [id number] Pending Review PCP Requested Referral 10/09/2021 10/09/2022 1 1 Specialty Diagnoses / Procedures Referred By Andriyac t Referred To Contact [facility] Diagnoses Gastroesophageal reflux disease, unspecified whether esophagitis present Bariatric surgery status Class 1 obesity with serious comorbidity and body mass index (BMI) of 31.0 to 31.9 in adult, unspecified obesity type S/P laparoscopic sleeve gastrectomy Procedures EGD BARIATRIC ESOPHAGOGASTRODUODENOSCO PY TRANSORAL DIAGNOSTIC Sabina Joy APRN.LABEL FOLDER [address] [place] [address] [facility] [place] [address] Referral ID Status Reason Start Date Expiration Date Visits Requested Visits Authorized [id number] Pending Review Auto-Generat ed Referral 10/09/2021 10/09/2022 1 1 Specialty Diagnoses / Procedures Referred By Andriyac t Referred To Contact Diagnoses RICHAR (obstructive sleep apnea) Procedures CONSULT TO SLEEP MEDICINE - ADULT OFFICE/OUTPATIENT [facility] 60-74 MINUTES Sabina Joy SUPPORT SERVICES REP.LABEL FOLDER [address] [place] [address] Referral ID Status Reason Start Date Expiration Date Visits Requested Visits Authorized [id number] Authorized PCP Requested Referral 2 01/02/2023 1 1 Specialty Diagnoses / Procedures Referred By Contac t Referred To Contact [facility] Diagnoses S/P bariatric surgery Primary osteoarthritis involving multiple joints Procedures CONSULT TO PHYSICAL THERAPY PHYSICAL THERAPY EVALUATION HIGH COMPLEX 45 MINS Breanna Stern, SUPPORT SERVICES REP.LABEL FOLDER [address] [place] [address] [facility] [address] [address] Referral ID Status Reason Start Date Expiration Date Visits Requested Visits Authorized [id number] Pending Review Auto-Generat ed Referral 2 02/03/2023 1 1 Specialty Diagnoses / Procedures Referred By Contac t Referred To Contact Endocrinology Diagnoses History of adrenal insufficiency Hypothyroidism, unspecified type Procedures CONSULT TO ENDOCRINOLOGY OFFICE/OUTPATIENT [facility] 60-74 MINUTES Aliyah Washburn PA-C [address] [facility] [place] [address] Referral ID Status Reason Start Date Expiration Date Visits Requested Visits Authorized [id number] Authorized PCP Requested Referral 06/12/2022 06/12/2023 1 1 Specialty Diagnoses / Procedures Referred By Contac t Referred To Contact Allergy Diagnoses Rash and nonspecific skin eruption Pain in eye, unspecified laterality Facial edema Procedures CONSULT TO ALLERGY/IMMUNOLOGY OFFICE/OUTPATIENT [facility] 60-74 MINUTES Samara Evans MD [address] [place] [id number] Referral ID Status Reason Start Date Expiration Date Visits Requested Visits Authorized [id number] Authorized PCP Requested Referral 07/28/2022 07/28/2023 1 1 Specialty Diagnoses / Procedures Referred By Contac t Referred To Contact CT IMAGING Diagnoses Generalized abdominal pain Procedures CTA ABD/PEL W IVCON CT ANGIO ABD&PLVIS CNTRST MTRL W/WO CNTRST Agustin Piper MD [address] [place] [id number] Ct Imaging [place] [address] Referral ID Status Reason Start Date Expiration Date Visits Requested Visits Authorized [id number] Authorized Auto-Generat ed Referral 3 01/17/2023 1 1 Specialty Diagnoses / Procedures Referred By Contac t Referred To Contact Home Health Services Diagnoses Median arcuate ligament syndrome (CMS/HCC) Alicia Toro, SUPPORT SERVICES REP-LABEL FOLDER [address] [place] [address] Referral ID Status Reason Start Date Expiration Date Visits Requested Visits Authorized [id number] Authorized Specialty Services Required 03/08/2023 03/07/2024 999 999 Specialty Diagnoses / Procedures Referred By Contac t Referred To Contact Home Health Services Diagnoses Other [place] [address] [address] [place] [address] Referral ID Status Reason Start Date Expiration Date Visits Requested Visits Authorized [id number] Authorized Specialty Services Required 07/01/2023 06/30/2024 999 999 Specialty Diagnoses / Procedures Referred By Jazmine hooks Referred To Contact Francisco J Steve MD [address] [place] [address] Referral ID Status Reason Start Date Expiration Date V isits Requested Visits Authorized [id number] Pending Review 1 1 Specialty Diagnoses / Procedures Referred By Jazmine hooks Referred To Contact TRANSPLANT Diagnoses Chronic nausea History of laparoscopic partial gastrectomy History of sphincterotomy of sphincter of Oddi Median arcuate ligament syndrome (HCC) Procedures CONSULT TO [facility] LAPAROTOMY CELIOTOMY W/[place] [address] [place] [address] [facility] [address] [place] [address] Referral ID Status Reason Start Date Expiration Date Visits Requested Visits Authorized [id number] Canceled Financial Clearance Required - OON Payor 07/19/2023 07/18/2024 99 99 Medications Administered Section Inactive Administered Medications - up to 3 most recent administrations Medication Order MAR Action Action Date Dose Rate Site benzocaine 20% (TOPEX) TOPICAL, X (OR/PROCEDURE) PRN, Starting on Heena 12/25/21 at 0939, Until Heena 12/25/21 at 0939, Intraprocedure Given 12/25/2021 9:39 AM EST 1 [place] Meperidine (PF) injection (DEMEROL) X (OR/PROCEDURE) PRN, [...] section and content) DATE CREATED AUTHOR 09/11/[address] [facility] DATE CREATED AUTHOR AUTHOR'S ORGANIZ ATION 06/03/2021 [facility] DATE CREATED AUTHOR AUTHOR'S ORGANIZ ATION 06/24/2022 [facility] DATE CREATED AUTHOR AUTHOR'S ORGANIZ ATION 11/01/2022 [facility] DATE CREATED AUTHOR AUTHOR'S ORGANIZ ATION [facility]/07/2022 [facility] DATE CREATED AUTHOR AUTHOR'S ORGANIZ ATION 11/22/2022 [facility] DATE CREATED AUTHOR AUTHOR'S ORGANIZ ATION 11/29/2022 [facility] DATE CREATED AUTHOR AUTHOR'S ORGANIZ ATION 12/16/2022 [facility] [place] DATE CREATED AUTHOR AUTHOR'S ORGANIZ ATION 02/12/2023 [facility] DATE CREATED AUTHOR AUTHOR'S ORGANIZ ATION 02/18/2023 [facility] DATE CREATED AUTHOR AUTHOR'S ORGANIZ ATION 06/27/2023 [facility] DATE CREATED AUTHOR AUTHOR'S ORGANIZ ATION 07/11/2023 [facility] DATE CREATED AUTHOR AUTHOR'S ORGANIZ ATION 07/21/2023 [facility] DATE CREATED AUTHOR AUTHOR'S ORGANIZ ATION 07/22/2023 [facility] DATE CREATED AUTHOR AUTHOR'S ORGANIZ ATION 08/01/2023 [facility] DATE CREATED AUTHOR AUTHOR'S ORGANIZ ATION 08/06/[address] [facility] DATE CREATED AUTHOR AUTHOR'S ORGANIZ ATION 08/07/2023 [facility] DATE CREATED AUTHOR AUTHOR'S ORGANIZ ATION 08/13/2023 [facility] DATE CREATED AUTHOR AUTHOR'S ORGANIZ ATION 08/15/2023 [facility] Reason for Visit (unrecogniz ed section and content) Reason Comments Fatigue Anxiety Stress Specialty Diagnoses / Procedures Referred By Jazmine hooks Referred To Contact Psychology / ADULT PSYCHOLOGY Diagnoses follow up Procedures VIDEO PSYC/PSYL EST Pablo Lebron, ROSALBA [address] [place] [address] Pablo Lebron, ROSALBA [address] [place] [address] Referral ID Status Reason Start Date Expiration Date V isits Requested Visits Authorized [id number] Pending Review 06/09/2023 09/07/2023 1 1 Reason Comments Abdominal Pain RUQ abdominal pain t hat is spreading across her back and into the left side. pt states that she does not have a gallbladder or appendix and has been treated by [facility] recently for bowel adhesions and it is just getting worse. 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 Lebron Procedures VIDEO PSYC/PSYL EST Self Pablo Lebron, PSYD [address] [place] [address] Referral ID Status Reason Start Date Expiration Date V isits Requested Visits Authorized [id number] Outside PCP 09/21/2022 12/20/2022 1 1 Reason Comments Anxiety Stress Specialty Diagnoses / Procedures Referred By Contac t Referred To Contact Psychology / ADULT PSYCHOLOGY Diagnoses Follow up Procedures VIDEO PSYC/PSYL EST Pablo Lebron, PSYD [address] [facility] [address] [place] [id number] Pablo Lebron, PSYD [address] [place] [id number] Referral ID Status Reason Start Date Expiration Date V isits Requested Visits Authorized [id number] Pending Review 10/05/2022 01/03/2023 1 1 Reason [...] CT scans showing possible kidney stones near [facility], here today because hands turned brown [...] 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] Procedures [place] UNLISTED PX ABDOMEN MUSCULOSKELETAL SYSTEM Release Median Arcuate Ligament [place] [address] [place] [address] [place] [address] [place] [address] Referral ID Status Reason Start Date Expiration Date Visits Re quested Visits Authorized [id number] 1 1 Reason Comments Abdominal Pain Specialty Diagnoses / Procedures Referred By Contac t Referred To Contact Diagnoses Abdominal pain History of gastric bypass Nausea and vomiting, unspecified vomiting type nausea and vomiting [place] [address] [place] [address] [address] [place] [address] Referral ID Status Reason Start Date Expiration Date Visits Re quested Visits Authorized [id number] 1 1 Reason Comments Weight Loss Surgery Reason Comments Established Patient Reason Comments Appointment Cancel EGD Reason Comments Patient Question Reason Comments Vomiting 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 Comments 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 Emergency Department Report [facility] EMERGENCY [facility]PARTMENT Service Date:.01/30/20 PCP: Shanna June Chief Complaint: Chief Complaint Patient presents with Abdominal Pain RUQ abdominal pain that is spreading across her back and into the left side. pt states that she does not have a gallbladder or appendix and has been treated by [facility] recently for bowel adhesions and it is [...] file Gets together: Not on file Attends jain service: Not on file Active member of [...] with a prescription of Zofran and some Kinney to help with some of the discomfort. [...] 1400 1411 (Given - Provid er: Nabila Childs, DEE) hydroCODone-acetaminophen (NORCO) 5-325 MG per tablet 2 tablet (COMPLETED) 2 tablet, Oral, ONCE, 1 dose, On Wed07/02/20 at 1545, Maximum dose of acetaminophen is 4000 mg from all sources in 24 hours. 1540 (Given - Provid er: Nabila Childs, RN) ketorolac (TORADOL) injection 15 mg (COMPLETED) 15 mg, Intravenous, ONCE, 1 dose, On Wed07/02/20 at 1400 1412 (Given - Provid er: Nabila Childs RN) ondansetron 4mg/2ml (ZOFRAN) injection 4 mg (COMPLETED) 4 mg, Intravenous, ONCE, 1 dose, On e 07/02/20 at 1400 1412 (Given - Provid er: Nabila Childs RN) ondansetron 4mg/2ml (ZOFRAN) injection 4 mg (COMPLETED) 4 mg, Intravenous, ONCE, 1 dose, On e 07/02/20 at 1615 1548 (Given - Provid er: [...] mg (COMPLETED) 1 mg, intra-catheter, Once, On 03/09/23 at 0615, For 1 dose, For occluded [...] RN)2000 (Given - Provider: Eileen Austin RN) 902 (Given - Provider: Nadia Zee RN)2100 (Due) enoxaparin (Lovenox) syringe 40 mg 40 mg, subcutaneous, Daily, First dose on 03/06/23 at 1130 0840 (Given - Provider: Cole Nuñez RN) 0821 (Given - Provider: Nadia Zee RN) 09 (Given - Provider: Nadia Zee RN) escitalopram (Lexapro) tablet 20 mg 20 mg, oral, Daily, First dose on 03/06/23 at 0900 0840 (Given - Provider: Cole uNñez RN) 0821 (Given - Provider: Nadia Zee RN) 09 (Given - Provider: Nadia Zee RN) famotidine (Pepcid) tablet 20 mg(Linked Group 1) 20 mg, oral, 2 times daily, First dose (after last modification) on Wed03/05/23 at 2100 0840 (Given - Provider: Cole Nuñez RN)2 (Given - Provider: Danny Middleton RN) 08 (Given - Provider: Nadia Zee RN)2000 (Given - Provider: Eileen Austin, DEE) 09 (Given - Provider: Nadia Zee RN)2100 [...] (See Alternative - Provider: Eileen Austin RN) 09 (See Alternative - Provider: Nadia Zee RN)2100 [...] Zee RN - Reason: Order parameters not met)1999 (Not Given - Provider: Eileen Austin RN [...] Middleton RN) 2000 (Given - Provider: Eileen Austin RN) 2100 (Due) sennosides (Senokot) tablet 17.2 mg (CANCELED) 17.2 mg (2 tablet), oral, 2 times daily, First dose on Wed03/05/23 at 1445, Bowel Regimen - for prevention of constipation Hold for loose stools 0840 (Given - Provider: Cole Nuñez RN)2122 [...] RN) 0821 (Given - Provider: Nadia Zee RN)2001 (Given - Provider: Eileen Austin, DEE) 0907 (Given - Provider: Nadia Zee RN)2100 [...] Nuñez RN) 0356 (Given - Provider: Danny Middleton, DEE)1012 (Given - Provider: Nadia Zee RN)1848 (Given - Provider: Nadia Zee RN) 0350 (Given - Provider: Eileen Austin, DEE) diphenhydramine-zinc acetate cream Topical, 3 times daily [...] via IV Push, administer over 3-5 minutes. 0544 (Given - Provider: Danny Middleton RN)2000 (Given [...] contact provider if no further options ordered. 0544 (See Alternative - Provider: Danny Middleton RN)2000 (See Alternative - Provider: Eileen Austin RN) 542 (Given - Provider: Eileen Austin RN) oxyCODONE-acetaminophen [...] Zee, DEE)1952 (Given - Provider: Eileen Austin, DEE) 0006 (Given - Provider: Eileen Austin RN)1312 (Given - Provider: Nadia Zee RN) [...] line, Starting on 03/06/23 at 1240, Give [place] if patient is unable to take orally [...] line, Starting on 03/06/23 at 1240
Give [place] if patient is unable to take orally or receive by injection.
Scheduled Medication Order 03/18/2023 03/19/2023 03/20/2023 busPIRone (Buspar) tablet 10 mg 10 mg, oral, 2 times daily, First dose on Wed03/16/23 at 2100 0811 (Given - Provider: Andie Lugo RN)2009 (Given - Provider: Nathalie Campos RN) 08 (Given - Provider: Christina Lazo RN)2050 (Given - Provider: Nathalie Campos RN) 801 (Given - Provider: Stacie Blanco RN)2099 (Due) cyanocobalamin (Vitamin B-12) tablet 50 mcg 50 mcg, oral, Daily, First dose on Wed03/18/23 at 1515 1558 (Given - Provider: Andie Lugo RN) 08 (Given - Provider: Christina Lazo RN) 801 (Given - Provider: Stacie Blanco RN) escitalopram (Lexapro) tablet 20 mg 20 mg, oral, Daily, First dose on Wed03/17/23 at 0900 0811 (Given - Provider: Andie Lugo RN) 08 (Given - Provider: Christina Lazo RN) 801 (Given - Provider: Stacie Blanco RN) famotidine (Pepcid) tablet 20 mg 20 mg, oral, 2 times daily, First dose on Wed03/16/23 at 2100 0811 (Given - Provider: Andie Lugo RN)2009 (Given - Provider: Nathalie Campos RN) 08 (Given - Provider: Christina Lazo RN)2050 (Given - Provider: Nathalie Campos RN) 801 (Given - Provider: Stacie Blanco RN)2099 (Due) ferrous sulfate (325 mg ferrous [...] 2050 (Given - Provider: Nathalie Campos RN) 2100 (Due) pantoprazole (ProtoNix) injection 40 mg 40 mg, intravenous, 2 times daily, First dose on Wed03/17/23 at 1900, Reconstitute with 10 mL sodium chloride 0.9% for injection. Push over 2 minutes. Reconstitute with 10 mL sodium chloride 0.9% for injection. Push over 2 minutes. 0811 (Given - Provider: Andie Lugo RN)2008 (Given - Provider: Nathalie Campos RN) 0839 (Given - Provider: Christina Lazo, DEE)2050 (Given - Provider: Nathalie Campos RN) 08 (Given - Provider: Stacie Blanco RN)2100 (Due) thiamine (Vitamin B1) injection 100 mg [...] (Rate/Dose Verify - Provider: Nathalie Campos RN) 07 (New Bag - Provider: Nathalie Campos RN)2051 [...] mg per minute. 404 (Given - Provider: Nathalie Campos RN) diazePAM [...] at 0900 0914 (Given - Provider: Beatriz Dow, DEE)1530 (Given - Provider: Beatriz Dow RN)2239 (Given - Provider: Andrew Potts, DEE) 0826 (Given - Provider: Mariah Herrera RN)1501 (Given - Provider: Mariah Herrera RN)213 (Given - Provider: Grecia Schaffer, DEE) 1006 (Given - Provider: Tory Mcmullen, DEE)1500 [...] at 2100 0919 (Given - Provider: Beatriz Dow RN)2239 (Given - Provider: Andrew Potts, DEE) 0826 (Given - Provider: Mariah Herrera RN)213 (Given - Provider: Grecia Schaffer, DEE) 1007 (Given - Provider: Tory Mcmullen, DEE)2100 (Due) ferrous sulfate (325 mg ferrous sulfate) tablet 1 tablet 1 tablet, oral, Daily with breakfast, First dose on Wed07/01/23 at 0800 0916 (Given - Provider: Beatriz Dow RN) 0826 (Given - Provider: Mariah Herrera, DEE) 1006 (Given - Provider: Tory Mcmullen, DEE) heparin (porcine) injection 5,000 Units 5,000 Units, subcutaneous, Every 12 hours, First dose on Wed06/30/23 at 0900 0913 (Given - Provider: Beatriz Dow RN)224 (Given - Provider: Andrew Potts RN) 0827 (Given - Provider: Mariah Herrera RN)2139 (Given - Provider: Grecia Schaffer RN) 1012 (Given - Provider: Tory Mcmullen RN)2100 (Due) levothyroxine (Synthroid, Levoxyl) tablet 100 mcg 100 mcg, j-tube, Daily before breakfast, First dose on Wed06/30/23 at 0600 0615 (Given - Provider: Mayda Balbuena LPN) 0552 (Given - Provider: Andrew Potts RN) 0605 (Given - Provider: Grecia Schaffer RN) liothyronine (Cytomel) tablet 5 mcg 5 [...] RN)2136 (Given - Provider: Grecia Schaffer RN) 1007 (Given - Provider: Tory Mcmullen RN)1500 (Due)2100 (Due) metoclopramide (Reglan) tablet 5 mg [...] Herrera RN) 1007 (Given - Provider: Tory Mcmullen RN)1145 (Given - Provider: Tory Mcmullen RN)1700 (Due) mirtazapine (Remeron) tablet 30 mg 30 mg, oral, Nightly, First dose (after last modification) on Wed06/30/23 at 2100 223 (Given - Provider: Andrew Potts RN) 213 (Given - Provider: Grecia Schaffer, DEE) 2100 (Due) morphine injection 4 mg (COMPLETED) 4 mg, intravenous, Once, On Heena 07/01/23 at 1130, For 1 dose 1117 (Given - Provider: Beatriz Dow RN) morphine injection 4 mg (COMPLETED) 4 mg, intravenous, Once, On Wed07/01/23 at 1815, For 1 dose 1851 (Given - Provider: Beatriz Dow RN) pantoprazole (ProtoNix) EC tablet 40 mg 40 mg, oral, Daily, First dose on Wed07/01/23 at 0900, Do not crush, chew, or split. 0915 (Given - Provider: Beatriz Dow RN) 0826 (Given - Provider: Mariah Herrera RN) 1006 (Given - Provider: Tory Mcmullen, DEE) polyethylene glycol (Glycolax, Miralax) powder 17 g 17 g, oral, 2 times daily, First dose on Wed06/30/23 at 2100 0923 (Given - Provider: Beatriz Dow RN)2239 (Given - Provider: Andrew Potts RN - Comment: workflow) 0900 (Not Given - Provider: Mariah Herrera RN - Reason: Patient/family refused)2099 (Not Given - Provider: Grecia Schaffer, DEE - Reason: Other) 0900 (Not Given - Provider: Tory Mcmullen RN [...] (after last modification) on Wed06/30/23 at 2100 0913 (Given - Provider: Beatriz Dow, RN)2239 (Given - Provider: Andrew Potts, RN) 0827 (Given - Provider: Mariah Herrera RN)2136 (Given - Provider: Grecia Schaffer, DEE) 1007 (Given - Provider: Tory Mcmullen, RN)2100 (Due) Continuous Medication Order 07/01/2023 07/02/2023 07/03/2023 Adult Clinimix Parenteral Nutrition Continuous 83 mL/hr, intravenous, Administer over 24 Hours, Daily PN, Starting on Wed06/30/23 at 2200, Use a 0.22 micron filter.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 1507 (Rate/Dose Verify - Provider: Beatriz Dow RN)2141 (Stopped - Provider: Andrew Potts, DEE) 0939 (New Bag - Provider: Mariah Herrera RN)2351 (Rate/Dose Verify - Provider: Grecia Schaffer RN) 0257 (Rate/Dose Verify - Provider: Grecia Schaffer, DEE)0536 (Rate/Dose Verify - Provider: Grecia Schaffer, DEE)1000 (Stopped - Provider: Tory Mcmullen, DEE)1001 (New Bag - Provider: Tory Mcmullen, DEE) dextrose 10 % in water (D10W) infusion 75 mL/hr, intravenous, Continuous, Starting on Wed06/30/23 at 1945, Infuse only while clinimix is not running/infusing 0444 (Rate/Dose Verify - Provider: Mayda Balbuena LPN)1507 (Rate/Dose Verify - Provider: Beatriz Dow RN)1742 (Stopped - Provider: Beatriz Dow RN)2225 (New Bag - Provider: Andrew Potts RN) [...] Herrera RN) 0341 (Given - Provider: Grecia Schaffer RN)1007 (Given - Provider: Tory Mcmullen, DEE) morphine injection 4 mg (CANCELED) 4 mg, intravenous, Every 4 hours PRN, pain severe (7-10), first line, Starting on Heena 07/01/23 at 2138 2300 (Given - Provider: Aliyah Galvan, DEE) 0532 (Given - Provider: Aliyah Galvan, RN)0942 (Given - Provider: Mariah Herrera, DEE)1345 (Given - Provider: Mariah Herrera, DEE) ondansetron (Zofran) injection 4 mg 4 mg, intravenous, Every 6 hours PRN, nausea/vomiting, first line, Starting on Heena 07/01/23 at 1106, When administering via IV Push, administer over 3-5 minutes. 1532 (Given - Provider: Beatriz Dow, DEE) 0532 (Given - Provider: Aliyah Galvan RN)1120 (Given - Provider: Mariah Herrera, RN) oxyCODONE-acetaminophen (Percocet) 5-325 mg per tablet 1 tablet(Linked Group 2) 1 tablet, oral, Every 4 hours PRN, pain moderate (4-6), first line, Starting on Wed07/02/23 at 1401, If ordered PRN for pain, nurse is permitted to administer this medication for higher pain scores based on patient preference? Yes 1647 (See Alternative - Provider: Mariah Herrera RN)2136 (See Alternative - Provider: Grecia Schaffer RN) 0605 (See Alternative - Provider: Grecia Schaffer RN)1145 (See Alternative - Provider: Tory Mcmullen, DEE) oxyCODONE-acetaminophen (Percocet) 5-325 mg per tablet 2 tablet(Linked Group 2) 2 tablet, oral, Every 4 hours PRN, pain severe (7-10), first line, Starting on Wed07/02/23 at 1401, If ordered PRN for pain, nurse is permitted to administer this medication for higher pain scores based on patient preference? Yes 1647 (Given - Provider: Mariah Herrera RN)213 (Given - Provider: Grecia Schaffer RN) 0605 (Given - Provider: Grecia Schaffer RN)1145 (Given - Provider: Tory Mcmullen RN) sodium chloride 0.9% flush 10 mL 10 [...] (7-10), first line, Starting on Wed07/01/23 at 1106, If ordered PRN for pain, [...] than 38 C, Starting on Wed06/30/23 at 2056, If ordered PRN for pain, nurse is [...] Attending Provider Active Start: July 17, 2023 Pamphlet Distributor Relationship Specialty Start Date End Date Shanna June, VAHID [address] [place] [address] PCP - General Nurse Practitioner - Family 01/30/20 Pamphlet Distributor Relationship Specialty Start Date End Date Shanna June CNP [address] [place] [address] PCP - General Family Practice 01/31/20 Antelmo Davey [address] [facility] [place] [address] (Fax) 09/25/[address] [place] [address] [facility] [place] [address] Consulting General Surgery 09/25/19 Shanna June CNP [address] [place] [address] Referring Family Practice 10/19/19 Pamphlet Distributor Relationship Specialty Start Date End Date Shanna June CNP [address] [place] [address] PCP - General Family Practice 01/31/20 Antelmo Davey MD [address] [facility] [place] [address] (Fax) 09/25/[address] [place] [address] [facility] [place] [address] Consulting General Surgery 09/25/19 Shanna June CNP [address] [place] [address] Referring Family Practice 10/19/19 Pamphlet Distributor Relationship Specialty Start Date End Date Shanna June CNP [address] [place] [address] PCP - General Family Practice 01/31/20 Antelmo Davey MD [address] [facility] [place] [address] (Fax) 09/25/[address] [place] [address] [facility] [place] [address] Consulting General Surgery 09/25/19 Shanna June CNP [address] [place] [address] Referring Family Practice 10/19/19 Pamphlet Distributor Relationship Specialty Start Date End Date Shanna June CNP [address] [place] [address] PCP - General Family Practice 01/31/20 Antelmo Davey MD [address] [place] [address] (Fax) 09/25/19 [place] [address] [facility] [place] [address] Consulting General Surgery 09/25/19 Shanna June CNP [address] [place] [address] Referring Family Practice 10/19/19 Pamphlet Distributor Relationship Specialty Start Date End Date Wally Foley [address] [facility] [address] PCP - General Specialist 07/27/21 Pamphlet Distributor Relationship Specialty Start Date End Date Shanna June CNP [address] [place] [address] PCP - General Family Practice 01/31/20 Antelmo Davey MD [address] [place] [address] (Fax) 09/25/[address] [place] [address] [facility] [place] [address] Consulting General Surgery 09/25/19 Shanna June CNP [address] [place] [address] Referring Family Practice 10/19/19 Pamphlet Distributor Relationship Specialty Start Date End Date Shanna June CNP [address] [place] [address] PCP - General Family Practice 01/31/20 Antelmo Davey MD [address] [facility] [place] [address] (Fax) 09/25/19 [place] [address] [place] [address] Consulting General Surgery 09/25/19 Shanna JuneBETH [address] [place] [address] Referring Family Practice 10/19/19 Pamphlet Distributor Relationship Specialty Start Date End Date Shanna June CNP [address] [place] [address] PCP - General Family Practice 01/31/20 Antelmo Davey MD [address] [facility] [place] [address] (Fax) 09/25/[address] [place] [address] [facility] [place] [address] Consulting General Surgery 09/25/19 Shanna June LABEL FOLDER [address] [place] [address] Referring Family Practice 10/19/19 Pamphlet Distributor Relationship Specialty Start Date End Date Shanna June CNP [address] [place] [address] PCP - General Family Practice 01/31/20 Antelmo Davey MD [address] [facility] [place] [address] (Fax) 09/25/19 [place] [address] [place] [address] Consulting General Surgery 09/25/19 Shanna June CNP [address] [place] [address] Referring Family Practice 10/19/19 Pamphlet Distributor Relationship Specialty Start Date End Date Slade BETH Otero [address] [place] [address] PCP - General Family Practice 01/31/20 Antelmo Davey MD [address] [place] [address] (Fax) 09/25/19 [place] [address] [place] [address] Consulting General Surgery 09/25/19 Shanna June CNP [address] [place] [address] Referring Family Practice 10/19/19 Pamphlet Distributor Relationship Specialty Start Date End Date Shanna June CNP [address] [place] [address] PCP - General Family Practice 01/31/20 Antelmo Davey MD [address] [place] [address] (Fax) 09/25/19 [place] [address] [place] [address] Consulting General Surgery 09/25/19 Shanna June CNP [address] [place] [address] Referring Family Practice 10/19/19 Pamphlet Distributor Relationship Specialty Start Date End Date Wally Foley [address] [facility] [place] [address] PCP - General Specialist 07/27/21 Pamphlet Distributor Relationship Specialty Start Date End Date Shanna June CNP [address] [place] [address] PCP - General Family Practice 01/31/20 Antelmo Davey MD [address] [facility] [place] [address] (Fax) 09/25/[address] [place] [address] [facility] [place] [address] Consulting General Surgery 09/25/19 Shanna June CNP [address] [place] [address] Referring Family Practice 10/19/19 Pamphlet Distributor Relationship Specialty Start Date End Date Shanna June CNP [address] [place] [address] PCP - General Family Practice 01/31/20 Antelmo Davey MD [address] [facility] [place] [address] (Fax) 09/25/19 [place] [address] [place] [address] Consulting General Surgery 09/25/19 Shanna June CNP [address] [place] [address] Referring Family Practice 10/19/19 Pamphlet Distributor Relationship Specialty Start Date End Date Shanna June CNP [address] [place] [address] PCP - General Family Practice 01/31/20 Antelmo Davey MD [address] [place] [address] (Fax) 09/25/19 [place] [address] [place] [address] Consulting General Surgery 09/25/19 Shanna June, LABEL FOLDER [address] [place] [address] Referring Family Practice 10/19/19 Pamphlet Distributor Relationship Specialty Start Date End Date Shanna June CNP [address] [place] [address] PCP - General Family Practice 01/31/20 Antelmo Davey MD [address] [facility] [place] [address] (Fax) 09/25/19 [place] [address] [place] [address] Consulting General Surgery 09/25/19 Shanna June, LABEL FOLDER [address] [place] [address] Referring Family Practice 10/19/19 Pamphlet Distributor Relationship Specialty Start Date End Date Shanna June CNP [address] [place] [address] PCP - General Family Medicine 01/31/20 Antelmo Davey MD [address] [facility] [place] [address] (Fax) 09/25/19 [place] [address] [place] [address] Consulting General Surgery 09/25/19 Shanna June CNP [address] [place] [address] Referring Family Medicine 10/19/19 Pamphlet Distributor Relationship Specialty Start Date End Date Shanna June CNP [address] [place] [address] PCP - General Family Medicine 01/31/20 Antelmo Davey MD [address] [facility] [place] [address] (Fax) 09/25/19 [place] [address] [place] [address] Consulting General Surgery 09/25/19 Shanna June, LABEL FOLDER [address] [place] [address] Referring Family Medicine 10/19/19 Pamphlet Distributor Relationship Specialty Start Date End Date Shanna June CNP [address] [place] [address] PCP - General Family Medicine 01/31/20 Antelmo Davey MD [address] [facility] [place] [address] (Fax) 09/25/[address] [place] [address] [facility] [place] [address] Consulting General Surgery 09/25/19 Shanna June LABEL FOLDER [address] [place] [address] Referring Family Medicine 10/19/19 Pamphlet Distributor Relationship Specialty Start Date End Date Shanna June CNP [address] [place] [address] PCP - General Family Medicine 01/31/20 Antelmo Davey MD [address] [facility] [place] [address] (Fax) 09/25/[address] [place] [address] [facility] [place] [address] Consulting General Surgery 09/25/19 Slade Shanna, LABEL FOLDER [address] [place] [address] Referring Family Medicine 10/19/19 Pamphlet Distributor Relationship Specialty Start Date End Date SladeDenverShanna, LABEL FOLDER [address] [place] [address] PCP - General Family Medicine 01/31/20 Antelmo Davey MD [address] [place] [address] (Fax) 09/25/19 [place] [address] [place] [address] Consulting General Surgery 09/25/19 Shanna June, LABEL FOLDER [address] [place] [address] Referring Family Medicine 10/19/19 Pamphlet Distributor Relationship Specialty Start Date End Date Shanna June CNP [address] [place] [address] PCP - General Family Medicine 01/31/20 Antelmo Davey MD [address] [place] [address] 09/25/19 [place] [address] [place] [address] Consulting General Surgery 09/25/19 Shanna June CNP [address] [place] [address] Referring Family Medicine 10/19/19 Pamphlet Distributor Relationship Specialty Start Date End Date SladeShanna BETH [address] [place] [address] PCP - General Family Medicine 01/31/20 Antelmo Davey MD [address] [place] [address] (Fax) 09/25/[address] [place] [address] [facility] [place] [address] Consulting General Surgery 09/25/19 Shanna June CNP [address] [place] [address] Referring Family Medicine 10/19/19 Pamphlet Distributor Relationship Specialty Start Date End Date Shanna June CNP [address] [place] [address] PCP - General Family Medicine 01/31/20 Antelmo Davey MD [address] [facility] [place] [address] (Fax) 09/25/19 [place] [address] [place] [address] Consulting General Surgery 09/25/19 Shanna June CNP [address] [place] [address] Referring Family Medicine 10/19/19 Pamphlet Distributor Relationship Specialty Start Date End Date Shanna June CNP [address] [place] [address] PCP - General Family Medicine 01/31/20 Antelmo Davey MD [address] [place] [address] (Fax) 09/25/19 [place] [address] [place] [address] Consulting General Surgery 09/25/19 Shanna June, BETH [address] [place] [address] Referring Family Medicine 10/19/19 Pamphlet Distributor Relationship Specialty Start Date End Date Shanna June CNP [address] [place] [address] PCP - General Family Medicine 01/31/20 Antelmo Davey MD [address] [facility] [place] [address] (Fax) 09/25/19 [place] [address] [place] [address] Consulting General Surgery 09/25/19 Shanna June CNP [address] [place] [address] Referring Family Medicine 10/19/19 Pamphlet Distributor Relationship Specialty Start Date End Date Shanna June CNP [address] [place] [address] PCP - General Family Medicine 01/31/20 Antelmo Davey MD [address] [facility] [place] [address] (Fax) 09/25/19 [place] [address] [place] [address] Consulting General Surgery 09/25/19 Slade Shanna, LABEL FOLDER [address] [place] [address] Referring Family Medicine 10/19/19 Pamphlet Distributor Relationship Specialty Start Date End Date Slade Shanna, LABEL FOLDER [address] [place] [address] PCP - General Family Medicine 01/31/20 Antelmo Davey MD [address] [place] [address] (Fax) 09/25/19 [place] [address] [place] [address] Consulting General Surgery 09/25/19 Shanna June, [facility] [address] [place] [address] Referring Family Medicine 10/19/19 Pamphlet Distributor Relationship Specialty Start Date End Date Wally Foley MD [address] [place] [address] PCP - General Family Medicine 01/19/22 Antelmo Davey MD [address] [place] [address] (Fax) 09/25/19 [place] [address] [place] [address] Consulting General Surgery 09/25/19 Shanna June, LABEL FOLDER [address] [place] [address] Referring Family Medicine 10/19/19 Pamphlet Distributor Relationship Specialty Start Date End Date Wally Foley MD [address] [place] [place] [address] PCP - General Family Medicine 01/19/22 Antelmo Davey MD [address] [place] [address] (Fax) 09/25/19 [place] [address] [place] [address] Consulting General Surgery 09/25/19 Shanna June, LABEL FOLDER [address] [place] [address] Referring Family Medicine 10/19/19 Pamphlet Distributor Relationship Specialty Start Date End Date Wally Foley MD [address] [place] [address] PCP - General Family Medicine 01/19/22 Antelmo Davey MD [address] [facility] [place] [address] (Fax) 09/25/19 [place] [address] [place] [address] Consulting General Surgery 09/25/19 Shanna June, LABEL FOLDER [address] [place] [address] Referring Family Medicine 10/19/19 Pamphlet Distributor Relationship Specialty Start Date End Date Wally Foley MD [address] [place] [address] PCP - General Family Medicine 01/19/22 Antelmo Davey MD [address] [place] [address] (Fax) 09/25/19 [place] [address] [place] [address] Consulting General Surgery 09/25/19 Shanna June, LABEL FOLDER [address] [place] [address] Referring Family Medicine 10/19/19 Pamphlet Distributor Relationship Specialty Start Date End Date Wally Foley MD [address] [place] [address] PCP - General Family Medicine 01/19/22 Antelmo Davey MD [address] [place] [address] (Fax) 09/25/19 [place] [address] [place] [address] Consulting General Surgery 09/25/19 Shanna June, LABEL FOLDER [address] [place] [address] Referring Family Medicine 10/19/19 Pamphlet Distributor Relationship Specialty Start Date End Date Wally Foley MD [address] [place] [address] PCP - General Family Medicine 01/19/22 Antelmo Davey MD [address] [place] [address] (Fax) 09/25/19 [place] [address] [place] [address] Consulting General Surgery 09/25/19 Shanna June, LABEL FOLDER [address] [place] [address] Referring Family Medicine 10/19/19 Pamphlet Distributor Relationship Specialty Start Date End Date Wally Foley MD [address] [place] [address] PCP - General Family Medicine 01/19/22 Antelmo Davey MD [address] [facility] [place] [address] (Fax) 09/25/[address] [place] [address] [facility] [place] [address] Consulting General Surgery 09/25/19 Shanna June, LABEL FOLDER [address] [place] [address] Referring Family Medicine 10/19/19 Pamphlet Distributor Relationship Specialty Start Date End Date Wally Foley MD [address] [place] [address] PCP - General Family Medicine 01/19/22 Antelmo Davey MD [address] [facility] [place] [address] (Fax) 09/25/19 [place] [address] [address] [place] [address] Consulting General Surgery 09/25/19 Shanna June, LABEL FOLDER [address] [place] [address] Referring Family Medicine 10/19/19 Pamphlet Distributor Relationship Specialty Start Date End Date Wally Foley MD [address] [place] [address] PCP - General Family Medicine 01/19/22 Antelmo Davey MD [address] [facility] [place] [address] (Fax) 09/25/19 [place] [address] [place] [address] Consulting General Surgery 09/25/19 Shanna June, LABEL FOLDER [address] [place] [address] Referring Family Medicine 10/19/19 Pamphlet Distributor Relationship Specialty Start Date End Date Wally Foley MD [address] [place] [address] PCP - General Family Medicine 01/19/22 Antelmo Davey MD [address] [facility] [place] [address] (Fax) 09/25/19 [place] [address] [place] [address] Consulting General Surgery 09/25/19 Shanna June, BETH [address] [place] [address] Referring Family Medicine 10/19/19 Pamphlet Distributor Relationship Specialty Start Date End Date Wally Foley MD [address] [facility] [place] [address] PCP - General Family Medicine 01/19/22 Antelmo Davey MD [address] [facility] [place] [address] (Fax) 09/25/19 [place] [address] [place] [address] Consulting General Surgery 09/25/19 Shanna June, LABEL FOLDER [address] [place] [address] Referring Family Medicine 10/19/19 Pamphlet Distributor Relationship Specialty Start Date End Date Wally Foley MD [address] [facility] [place] [address] PCP - General Family Medicine 01/19/22 Antelmo Davey MD [address] [facility] [place] [address] (Fax) 09/25/19 [place] [address] [facility] [place] [address] Consulting General Surgery 09/25/19 Shanna June, LABEL FOLDER [address] [place] [address] Referring Family Medicine 10/19/19 Agustin Valentino [address] [place] [address] [place] [address] Referring Family Medicine 05/13/22 Pamphlet Distributor Relationship Specialty Start Date End Date Jaquan Morrow [address] [place] [address] PCP - General 06/16/22 Antelmo Davey MD [address] [place] [address] 09/25/19 [place] [address] [place] [address] Consulting General Surgery 09/25/19 Shanna June, LABEL FOLDER [address] [place] [address] Referring Family Medicine 10/19/19 Agustin Valentino [address] [facility] [address] [place] [address] Referring Family Medicine 05/13/22 Pamphlet Distributor Relationship Specialty Start Date End Date Jaquan Morrow [address] [place] [address] PCP - General 06/16/22 Antelmo Davey MD [address] [place] [address] 09/25/19 [place] [address] [place] [address] Consulting General Surgery 09/25/19 Shanna June, LABEL FOLDER [address] [place] [address] Referring Family Medicine 10/19/19 Agustin Valentino [address] [facility] [address] [place] [address] Referring Family Medicine 05/13/22 Pamphlet Distributor Relationship Specialty Start Date End Date Jaquan Morrow [address] [place] [address] PCP - General 06/16/22 Antelmo Davey MD [address] [place] [address] 09/25/19 [place] [address] [place] [address] Consulting General Surgery 09/25/19 Shanna June, LABEL FOLDER [address] [place] [address] Referring Family Medicine 10/19/19 Agustin Valentino [address] [place] [address] Referring Family Medicine 05/13/22 Pamphlet Distributor Relationship Specialty Start Date End Date Jaquan Morrow [address] [place] [address] PCP - General 06/16/22 Antelmo Davey MD [address] [place] [address] 09/25/19 [place] [address] [place] [address] Consulting General Surgery 09/25/19 Shanna June, LABEL FOLDER [address] [place] [address] Referring Family Medicine 10/19/19 Agustin Valentino [address] [facility] [address] [place] [address] Referring Family Medicine 05/13/22 Pamphlet Distributor Relationship Specialty Start Date End Date Jaquan Morrow [address] [place] [address] PCP - General 06/16/22 Antelmo Davey MD [address] [place] [address] (Fax) 09/25/19 [place] [address] [place] [address] Consulting General Surgery 09/25/19 Shanna June, LABEL FOLDER [address] [place] [address] Referring Family Medicine 10/19/[address] [facility] [address] [place] [address] Referring Family Medicine 05/13/22 Pamphlet Distributor Relationship Specialty Start Date End Date Jaquan Morrow [address] [place] [address] PCP - General 06/16/22 Antelmo Davey MD [address] [place] [address] (Fax) 09/25/19 [place] [address] [place] [address] Consulting General Surgery 09/25/19 Shanna June, LABEL FOLDER [address] [place] [address] Referring Family Medicine 10/19/[address] [facility] [address] [place] [address] Referring Family Medicine 05/13/22 Pamphlet Distributor Relationship Specialty Start Date End Date Jaquan Morrow [address] [place] [address] PCP - General 06/16/22 Antelmo Davey MD [address] [place] [address] 09/25/19 [place] [address] [place] [address] Consulting General Surgery 09/25/19 Shanna June, LABEL FOLDER [address] [place] [address] Referring Family Medicine 10/19/19 Agustin Valentino [address] [facility] 150 [place] [address] Referring Family Medicine 05/13/22 Pamphlet Distributor Relationship Specialty Start Date End Date Jaquan Morrow [address] [place] [address] PCP - General 06/16/22 Antelmo Davey MD [address] [place] [address] 09/25/19 [place] [address] [place] [address] Consulting General Surgery 09/25/19 Shanna June CNP [address] [place] [address] Referring Family Medicine 10/19/19 Agustin Valentino [address] [facility] 150 [place] [address] Referring Family Medicine 05/13/22 Pamphlet Distributor Relationship Specialty Start Date End Date Linda Morrowdi [address] [place] [address] PCP - General 06/16/22 Antelmo Davey MD [address] [place] [address] (Fax) 09/25/19 [place] [address] [place] [address] Consulting General Surgery 09/25/19 Shanna June, LABEL FOLDER [address] [place] [address] Referring Family Medicine 10/19/19 [address]ustin Valentino [address] [place], [place] [address], [place] [address] Referring Family Medicine 05/13/22 Pamphlet Distributor Relationship Specialty Start Date End Date CristhianLindadi [address] [place] [address] PCP - General 06/16/22 Antelmo Davey MD [address] [place] [address] (Fax) 09/25/19 [place] [address] [place] [address] Consulting General Surgery 09/25/19 Shanna June, BETH [address] [place] [address] Referring Family Medicine 10/19/19 Agustin Valentino [address] [facility] [address] [place] [address] Referring Family Medicine 05/13/22 Pamphlet Distributor Relationship Specialty Start Date End Date Jaquan Morrow [address] [place] [address] PCP - General 06/16/22 Antelmo Davey MD [address] [place] [address] (Fax) 09/25/19 [place] [address] [place] [address] Consulting General Surgery 09/25/19 Shanna June CNP [address] [place] [address] Referring Family Medicine 10/19/19 Agustin Valentino [address] [place] [address] [place] [address] Referring Family Medicine 05/13/22 Pamphlet Distributor Relationship Specialty Start Date End Date Jaquan Morrow [address] [place] [address] PCP - General 06/16/22 Antelmo Davey MD [address] [place] [address] (Fax) 09/25/19 [place] [address] [place] [address] Consulting General Surgery 09/25/19 Shanna June, BETH [address] [place] [address] Referring Family Medicine 10/19/19 Agustin Valentino [address] [facility] [address] [place] [address] Referring Family Medicine 05/13/22 Pamphlet Distributor Relationship Specialty Start Date End Date Jaquan Morrow [address] [place] [address] PCP - General 06/16/22 Antelmo Davey MD [address] [place] [address] (Fax) 09/25/19 [place] [address] [place] [address] Consulting General Surgery 09/25/19 Shanna June, BETH [address] [place] [address] Referring Family Medicine 10/19/19 Agustin Valentino PA [address] [facility] [address] [place] [address] Referring Family Medicine 05/13/22 Pamphlet Distributor Relationship Specialty Start Date End Date Jaquan Morrow [address] [place] [address] PCP - General 06/16/22 Antelmo Davey MD [address] [place] [address] 09/25/19 [place] [address] [place] [address] Consulting General Surgery 09/25/19 Shanna June CNP [address] [place] [address] Referring Family Medicine 10/19/19 Agustin Valentino PA [address] [address] [place] [address] Referring Family Medicine 05/13/22 Pamphlet Distributor Relationship Specialty Start Date End Date Wally Foley [address] [id number] PCP - General Specialist 07/27/21 Pamphlet Distributor Relationship Specialty Start Date End Date Shanna June FNP [address] [place] [address] PCP - General Nurse Practitioner - Family 01/30/20 Pamphlet Distributor Relationship Specialty Start Date End Date Jaquan Morrow [address] [place] [place] [address] PCP - General 06/16/22 Antelmo Davey MD [address] [place] [address] 09/25/19 [place] [address] [place] [address] Consulting General Surgery 09/25/19 Shanna June CNP [address] [place] [address] Referring Family Medicine 10/19/19 Agustin Valentino PA [address] [facility] [place] [address] Referring Family Medicine 05/13/22 Pamphlet Distributor Relationship Specialty Start Date End Date Jaquan Morrow [address] [place] [address] PCP - General 06/16/22 Antelmo Davey MD [address] [place] [address] (Fax) 09/25/19 [place] [address] [place] [address] Consulting General Surgery 09/25/19 Shanna June CNP [address] [place] [address] Referring Family Medicine 10/19/19 Agustin Valentino PA [address] [address] [place] [address] Referring Family Medicine 05/13/22 Pamphlet Distributor Relationship Specialty Start Date End Date Jaquan Morrow [address] [place] [address] PCP - General 06/16/22 Antelmo Davey MD [address] [place] [address] (Fax) 09/25/19 [place] [address] [place] [address] Consulting General Surgery 09/25/19 Shanna June CNP [address] [place] [address] Referring Family Medicine 10/19/19 Agustin Valentino PA [address] [address] [place] [address] Referring Family Medicine 05/13/22 Pamphlet Distributor Relationship Specialty Start Date End Date Jaquan Morrow [address] [place] [address] PCP - General 06/16/22 Antelmo Davey MD [address] [place] [address] 09/25/19 [place] [address] [place] [address] Consulting General Surgery 09/25/19 Shanna June CNP [address] [place] [address] Referring Family Medicine 10/19/19 Agustin Valentino PA [address] [address] [place] [address] Referring Family Medicine 05/13/22 Pamphlet Distributor Relationship Specialty Start Date End Date Jaquan Morrow [address] [place] [address] PCP - General 06/16/22 Antelmo Davey MD [address] [place] [address] (Fax) 09/25/19 [place] [address] [place] [address] Consulting General Surgery 09/25/19 Shanna June, LABEL FOLDER [address] [place] [address] Referring Family Medicine 10/19/19 Agustin Valentino PA [address] [place] [address] Referring Family Medicine 05/13/22 Pamphlet Distributor Relationship Specialty Start Date End Date Jaquan Morrow [address] [place] [address] PCP - General 06/16/22 Antelmo Davey MD [address] [place] [address] (Fax) 09/25/[address] [place] [address] [facility] [place] [address] Consulting General Surgery 09/25/19 Shanna June, BETH [address] [place] [address] Referring Family Medicine 10/19/19 Agustin Valentino PA [address] [facility] [address] [place] [address] Referring Family Medicine 05/13/22 Pamphlet Distributor Relationship Specialty Start Date End Date CristhianLindadi [address] [place] [address] PCP - General 06/16/22 Antelmo Davey MD [address] [place] [address] (Fax) 09/25/19 [place] [address] [place] [address] Consulting General Surgery 09/25/19 Shanna June, BETH [address] [place] [address] Referring Family Medicine 10/19/19 Agustin Valentino PA [address] [place] [address] [place] [address] Referring Family Medicine 05/13/22 Pamphlet Distributor Relationship Specialty Start Date End Date Jaquan Morrow [address] [place] [address] PCP - General 06/16/22 Antelmo Davey MD [address] [facility] [place] [address] (Fax) 09/25/19 [place] [address] [place] [address] Consulting General Surgery 09/25/19 Shanna June, BETH [address] [place] [address] Referring Family Medicine 10/19/19 Agustin Valentino PA [address] [facility] 150 [place] [address] Referring Family Medicine 05/13/22 Pamphlet Distributor Relationship Specialty Start Date End Date Jaquan Morrow [address] [place] [address] PCP - General 06/16/22 Antelmo Davey MD [address] [place] [address] (Fax) 09/25/19 [place] [address] [place] [address] Consulting General Surgery 09/25/19 Shanna June CNP [address] [place] [address] Referring Family Medicine 10/19/19 Agustin Valentino PA [address] [address] [place] [address] Referring Family Medicine 05/13/22 Pamphlet Distributor Relationship Specialty Start Date End Date Jaquan Morrow [address] [place] [address] PCP - General 06/16/22 Antelmo Davey MD [address] [place] [address] (Fax) 09/25/19 [place] [address] [place] [address] Consulting General Surgery 09/25/19 Shanna June CNP [address] [place] [address] Referring Family Medicine 10/19/19 Agustin Valentino PA [address] [facility] 150 [place] [address] Referring Family Medicine 05/13/22 Pamphlet Distributor Relationship Specialty Start Date End Date Jaquan Morrow [address] [place] [address] PCP - General 06/16/22 Antelmo Davey MD [address] [place] [address] 09/25/19 [place] [address] [place] [address] Consulting General Surgery 09/25/19 Shanna June, BETH [address] [place] [address] Referring Family Medicine 10/19/19 Agustin Valentino PA [address] [address] [place] [address] Referring Family Medicine 05/13/22 Pamphlet Distributor Relationship Specialty Start Date End Date Jaquan Morrow [address] [place] [address] PCP - General 06/16/22 Antelmo Davey MD [address] [place] [address] (Fax) 09/25/19 [place] [address] [place] [address] Consulting General Surgery 09/25/19 Shanna June, LABEL FOLDER [address] [place] [address] Referring Family Medicine 10/19/19 Agustin Valentino PA [address] [facility] [address] [place] [address] Referring Family Medicine 05/13/22 Pamphlet Distributor Relationship Specialty Start Date End Date Jaquan Morrow [address] [place] [address] PCP - General 06/16/22 Antelmo Davey MD [address] [facility] [place] [address] 09/25/19 [place] [address] [place] [address] Consulting General Surgery 09/25/19 Shanna June, LABEL FOLDER [address] [place] [address] Referring Family Medicine 10/19/19 Agustin Valentino PA [address] [facility] [address] [place] [address] Referring Family Medicine 05/13/22 Pamphlet Distributor Relationship Specialty Start Date End Date Cristhian Jaquan [address] [place] [address] PCP - General 06/16/22 Antelmo Davey MD [address] [place] [address] (Fax) 09/25/19 [place] [address] [place] [address] Consulting General Surgery 09/25/19 Shanna June, BETH [address] [place] [address] Referring Family Medicine 10/19/19 Agustin Valentino PA [address] [place] [address] [place] [address] Referring Family Medicine 05/13/22 Pamphlet Distributor Relationship Specialty Start Date End Date Jaquan Morrow [address] [place] [address] PCP - General 06/16/22 Antelmo Davey MD [address] [place] [address] (Fax) 09/25/19 [place] [address] [place] [address] Consulting General Surgery 09/25/19 Shanna June, BETH [address] [place] [address] Referring Family Medicine 10/19/19 Agustin Valentino PA [address] [facility] 150 [place] [address] Referring Family Medicine 05/13/22 Pamphlet Distributor Relationship Specialty Start Date End Date Jaquan Morrow [address] [place] [address] PCP - General 06/16/22 Antelmo Davey MD [address] [place] [address] (Fax) 09/25/19 [place] [address] [place] [address] Consulting General Surgery 09/25/19 Shanna June CNP [address] [place] [address] Referring Family Medicine 10/19/19 Agustin Valentino PA [address] [facility] 150 [place] [address] Referring Family Medicine 05/13/22 Pamphlet Distributor Relationship Specialty Start Date End Date Jaquan Morrow [address] [place] [address] PCP - General 06/16/22 Antelmo Davey MD [address] [place] [address] (Fax) 09/25/19 [place] [address] [place] [address] Consulting General Surgery 09/25/19 Shanna June CNP [address] [place] [address] Referring Family Medicine 10/19/19 Agustin Valentino PA [address] [facility] [address] [place] [address] Referring Family Medicine 05/13/22 Pamphlet Distributor Relationship Specialty Start Date End Date Jaquan Morrow [address] [place] [address] PCP - General 06/16/22 Antelmo Davey MD [address] [place] [address] 09/25/19 [place] [address] [place] [address] Consulting General Surgery 09/25/19 Shanna June, BETH [address] [place] [address] Referring Family Medicine 10/19/19 Agustin Valentino PA [address] [address] [place] [address] Referring Family Medicine 05/13/22 Pamphlet Distributor Relationship Specialty Start Date End Date Jaquan Morrow [address] [place] [address] PCP - General 06/16/22 Antelmo Davey MD [address] [place] [address] 09/25/19 [place] [address] [place] [address] Consulting General Surgery 09/25/19 Shanna June, BETH [address] [place] [address] Referring Family Medicine 10/19/19 Agustin Valentino PA [address] [address] [place] [address] Referring Family Medicine 05/13/22 Pamphlet Distributor Relationship Specialty Start Date End Date Jaquan Morrow [address] [place] [address] PCP - General 06/16/22 Antelmo Davey MD [address] [place] [address] 09/25/19 [place] [address] [place] [address] Consulting General Surgery 09/25/19 Shanna June, BETH [address] [place] [address] Referring Family Medicine 10/19/19 Agustin Valentino PA [address] [facility] 150 [place] [address] Referring Family Medicine 05/13/22 Pamphlet Distributor Relationship Specialty Start Date End Date Jaquan Morrow, SUPPORT SERVICES REP.LABEL FOLDER [address] [place] [address] PCP - General 06/16/22 Antelmo Davey MD [address] [place] [address] (Fax) 09/25/19 [place] [address] [place] [address] Consulting General Surgery 09/25/19 Shanna June CNP [address] [place] [address] Referring Family Medicine 10/19/19 Agustin Valentino PA [address] [place] [address] Referring Family Medicine 05/13/22 Pamphlet Distributor Relationship Specialty Start Date End Date Jaquan Morrow, SUPPORT SERVICES REP.LABEL FOLDER [address] [place] [address] PCP - General 06/16/22 Antelmo Davey MD [address] [place] [address] 09/25/19 [place] [address] [place] [address] Consulting General Surgery 09/25/19 Shanna June CNP [address] [place] [address] Referring Family Medicine 10/19/19 Agustin Valentino PA [address] [facility] 150 [place] [address] Referring Family Medicine 05/13/22 Pamphlet Distributor Relationship Specialty Start Date End Date Jaquan Morrow, SUPPORT SERVICES REP.LABEL FOLDER [address] [place] [address] PCP - General 06/16/22 Antelmo Davey MD [address] [place] [address] 09/25/19 [place] [address] [place] [address] Consulting General Surgery 09/25/19 Shanna June, BETH [address] [place] [address] Referring Family Medicine 10/19/19 Agusitn Valentino PA [address] [address] [place] [address] Referring Family Medicine 05/13/22 Pamphlet Distributor Relationship Specialty Start Date End Date Jaquan Morrow, SUPPORT SERVICES REP.LABEL FOLDER [address] [place] [address] PCP - General 06/16/22 Antelmo Davey MD [address] [place] [address] 09/25/19 [place] [address] [place] [address] Consulting General Surgery 09/25/19 Shanna June, BETH [address] [place] [address] Referring Family Medicine 10/19/19 Agustin Valentino PA [address] [place] [address] Referring Family Medicine 05/13/22 Pamphlet Distributor Relationship Specialty Start Date End Date Jaquan Morrow, SUPPORT SERVICES REP.LABEL FOLDER [address] [place] [address] PCP - General 06/16/22 Antelmo Davey MD [address] [place] [address] 09/25/19 [place] [address] [place] [address] Consulting General Surgery 09/25/19 Shanna June CNP [address] [place] [address] Referring Family Medicine 10/19/19 Agustin Valentino PA [address] [place] [address] Referring Family Medicine 05/13/22 Team Status: Active Member Role Status Dates Jaquan Morrow SALES COUNSELOR-C Primary Care Provider Active Team Status: Inactive Member Role Status Dates Jaquan Morrow NP-C Primary Care Provider Active Claus Obrien DO Emergency Provider Active Roseline Mejia DO RES Active Pamphlet Distributor Relationship Specialty Start Date End Date Generic Provider, No Assigned PcpMD [address] [place] [address] PCP - General Family Medicine 01/02/23 Pamphlet Distributor Relationship Specialty Start Date End Date Generic Provider, No Assigned PcpMD [address] [place] [address] PCP - General Family Medicine 01/02/23 Team [...] 2023 End: April 06, 2023 Trace Lowery [facility] Emergency Provider Active Start: April 06, 2023 End: April 06, 2023 Pamphlet Distributor Relationship Specialty Start Date End Date Generic Provider, No Assigned PcpMD [address] [place] [address] PCP - General [employer] Medicine 01/02/23 Pamphlet Distributor Relationship Specialty Start Date End Date Jaquan Morrow APRN.CNP [address] [place] [address] PCP - General 06/16/22 Antelmo Davey MD [address] [place] [address] 09/25/19 [place] [address] [address] [place] [id number] Consulting General Surgery 09/25/19 Shanna June, BETH [address] [place] [address] Referring Family Medicine 10/19/19 Agustin Valentino PA [address] [facility] 150 [place] [address] Referring Family Medicine 05/13/22 Pamphlet Distributor Relationship Specialty Start Date End Date Generic Provider, No Assigned PcpMD [address] [place] [address] PCP - General Family Medicine 01/02/23 Pamphlet Distributor Relationship Specialty Start Date End Date Jaquan Morrow, SUPPORT SERVICES REP.LABEL FOLDER [address] [place] [address] PCP - General 06/16/22 Antelmo Davey MD [address] [place] [address] 09/25/19 [place] [address] [place] [address] Consulting General Surgery 09/25/19 Shanna June CNP [address] [place] [address] Referring Family Medicine 10/19/19 Agustin Valentino PA [address] [facility] [place] [address] Referring Family Medicine 05/13/22 Pamphlet Distributor Relationship Specialty Start Date End Date Jaquan Morrow, SUPPORT SERVICES REP.LABEL FOLDER [address] [place] [address] PCP - General 06/16/22 Antelmo Davey MD [address] [place] [address] (Fax) 09/25/19 [place] [address] [place] [address] Consulting General Surgery 09/25/19 Shanna June, BETH [address] [place] [address] Referring Family Medicine 10/19/19 Agustin Valentino PA [address] [place] [address] [address] Referring Family Medicine 05/13/22 Pamphlet Distributor Relationship Specialty Start Date End Date Jaquan Morrow, SUPPORT SERVICES REP.LABEL FOLDER [address] [place] [address] PCP - General 06/16/22 Antelmo Davey MD [address] [place] [address] 09/25/19 [place] [address] [place] [address] Consulting General Surgery 09/25/19 Shanna June CNP [address] [place] [address] Referring Family Medicine 10/19/19 Agustin Valentino PA [address] [facility] 150 [place] [address] Referring Family Medicine 05/13/22 Pamphlet Distributor Relationship Specialty Start Date End Date Jaquan Morrow, SUPPORT SERVICES REP.LABEL FOLDER [address] [place] [address] PCP - General 06/16/22 Antelmo Davey MD [address] [place] [address] (Fax) 09/25/19 [place] [address] [place] [address] Consulting General Surgery 09/25/19 Shanna June, BETH [address] [place] [address] Referring Family Medicine 10/19/19 Agustin Valentino PA [address] [address] Referring Family Medicine 05/13/22 Pamphlet Distributor Relationship Specialty Start Date End Date Jaquan Morrow, SUPPORT SERVICES REP.LABEL FOLDER [address] [place] [address] PCP - General 06/16/22 Antelmo Davey MD [address] [facility] [place] [address] (Fax) 09/25/19 [place] [address] [place] [address] Consulting General Surgery 09/25/19 Shanna June CNP [address] [place] [address] Referring Family Medicine 10/19/19 Agustin Valentino PA [address] [facility] [address] [place] [address] Referring Family Medicine 05/13/22 Pamphlet Distributor Relationship Specialty Start Date End Date Generic Provider, No Assigned PcpMD PCP - General Family Medicine 01/02/23 Pamphlet Distributor Relationship Specialty Start Date End Date Jaquan Morrow, SUPPORT SERVICES REP.LABEL FOLDER [address] [place] [address] PCP - General 06/16/22 Antelmo Davye MD [address] [place] [address] 09/25/19 [place] [address] [place] [address] Consulting General Surgery 09/25/19 Shanna June CNP [address] [place] [address] Referring Family Medicine 10/19/19 Agustin Valentino PA [address] [facility] 150 [place] [address] Referring Family Medicine 05/13/22 Pamphlet Distributor Relationship Specialty Start Date End Date Generic Provider, No [place] [address] PCP - General Long Term Care Pharmacist 06/29/23 Pamphlet Distributor Relationship Specialty Start Date End Date Generic Provider, No [place] [address] PCP - General Long Term Care Pharmacist 06/29/23 Pamphlet Distributor Relationship Specialty Start Date End Date Jaquan Morrow, SUPPORT SERVICES REP.LABEL FOLDER [address] [place] [address] PCP - General 06/16/22 Antelmo Davey MD [address] [place] [address] 09/25/19 [place] [address] [place] [address] Consulting General Surgery 09/25/19 Shanna June, BETH [address] [place] [address] Referring Family Medicine 10/19/19 Agustin Valentino PA [address] [place] [address] Referring Family Medicine 05/13/22 Pamphlet Distributor Relationship Specialty Start Date End Date Jaquan Morrow, SUPPORT SERVICES REP.LABEL FOLDER [address] [place] [address] PCP - General 06/16/22 Antelmo Davey MD [address] [place] [address] (Fax) 09/25/19 [place] [address] [place] [address] Consulting General Surgery 09/25/19 Shanna June CNP [address] [place] [address] Referring Family Medicine 10/19/19 Agustin Valentino PA [address] [facility] [address] [place] [address] Referring Family Medicine 05/13/22 Pamphlet Distributor Relationship Specialty Start Date End Date Jaquan Morrow, SUPPORT SERVICES REP.LABEL FOLDER [address] [place] [address] PCP - General 06/16/22 Antelmo Davey MD [address] [place] [address] 09/25/19 [place] [address] [place] [address] Consulting General Surgery 09/25/19 Shanna June, BETH [address] [place] [address] Referring Family Medicine 10/19/19 Agustin Valentino PA [address] [address] [place] [address] Referring Family Medicine 05/13/22 Pamphlet Distributor Relationship Specialty Start Date End Date Jaquan Morrow, SUPPORT SERVICES REP.LABEL FOLDER [address] [place] [address] PCP - General 06/16/22 Antelmo Davey MD [address] [place] [address] (Fax) 09/25/19 [place] [address] [place] [address] Consulting General Surgery 09/25/19 Shanna June, BETH [address] [place] [address] Referring Family Medicine 10/19/19 Agustin Valentino PA [address] [place] [address] [address] Referring Family Medicine 05/13/22 Pamphlet Distributor Relationship Specialty Start Date End Date Jaquan Morrow, SLIM.LABEL FOLDER [address] [place] [address] PCP - General 06/16/22 Antelmo Davey MD [address] [place] [address] 09/25/19 [place] [address] [place] [address] Consulting General Surgery 09/25/19 Shanna June CNP [address] [place] [address] Referring Family Medicine 10/19/19 Agustin Valentino PA [address] [place] [address] Referring Family Medicine 05/13/22 Team Status: Inactive [...] July 17, 2023 End: July 17, 2023 Pamphlet Distributor Relationship Specialty Start Date End Date Jaquan Morrow, SUPPORT SERVICES REP.LABEL FOLDER [address] [place] [address] PCP - General 06/16/22 Antelmo Davey MD [address] [place] [address] 09/25/19 [place] [address] [place] [address] Consulting General Surgery 09/25/19 Shanna June, BETH [address] [place] [address] Referring Family Medicine 10/19/19 Agustin Valentino PA [address] [address] [place] [address] Referring Family Medicine 05/13/22 Team Status: Inactive Member Role Status Dates Thomas Calix MD Primary Care Provider Active Start: July 31, 2023 End: July 31, 2023 Jeramy Cunningham DO Emergency Provider Active Sta rt: July 31, 2023 End: July 31, 2023 Pamphlet Distributor Relationship Specialty Start Date End Date Thomas Calix MD [address] [place] [address] PCP - General Family Medicine 07/30/23 Antelmo Davey MD [address] [place] [address] 09/25/19 [place] [address] [address] [place] [id number] Consulting General Surgery 09/25/19 Shanna June CNP [address] [place] [address] Referring Family Medicine 10/19/19 Agustin Valentino PA [address] [place] [address] Referring Family Medicine 05/13/22 Pamphlet Distributor Relationship Specialty Start Date End Date Thomas Calix MD [address] [place] [address] PCP - General Family Medicine 07/30/23 Antelmo Davey MD [address] [place] [address] 09/25/19 [place] [address] [place] [address] Consulting General Surgery 09/25/19 Shanna June, BETH [address] [place] [address] Referring Family Medicine 10/19/19 Agustin Valentino PA [address] [facility] [address] [place] [address] Referring Family Medicine 05/13/22 Pamphlet Distributor Relationship Specialty Start Date End Date Thomas Calix MD [address] [place] [address] PCP - General Family Medicine 07/30/23 Antelmo Davey MD [address] [place] [address] 09/25/19 [place] [address] [place] [address] Consulting General Surgery 09/25/19 Shanna June, BETH [address] [place] [address] Referring Family Medicine 10/19/19 Agustin Valentino PA [address] [facility] [address] [place] [address] Referring Family Medicine 05/13/22 Pamphlet Distributor Relationship Specialty Start Date End Date Thomas Calix MD [address] [place] [address] PCP - General Family Medicine 07/30/23 Antelmo Davey MD [address] [place] [address] 09/25/19 [place] [address] [place] [address] Consulting General Surgery 09/25/19 Shanna June CNP [address] [place] [address] Referring Family Medicine 10/19/19 Agustin Valentino PA [address] [place] [address] Referring Family Medicine 05/13/22 Pamphlet Distributor Relationship Specialty Start Date End Date Thomas Calix MD [address] [place] [address] PCP - General Family Medicine 07/30/23 Antelmo Davey MD [address] [place] [address] 09/25/19 [place] [address] [place] [address] Consulting General Surgery 09/25/19 Shanna June CNP [address] [place] [address] Referring Family Medicine 10/19/19 Agustin Valentino PA [address] [address] Referring Family Medicine 05/13/22 Pamphlet Distributor Relationship Specialty Start Date End Date Thomas Calix MD [address] [place] [address] PCP - General Family Medicine 07/30/23 Antelmo Davey MD [address] [place] [address] 09/25/19 [place] [address] [place] [address] Consulting General Surgery 09/25/19 Shanna June CNP [address] [place] [address] Referring Family Medicine 10/19/19 Agustin Valentino PA [address] [address] Referring Family Medicine 05/13/22 Team Status: Inactive [...] or prosecute any alcohol or drug abuse patient.[facility] HospitalIn the event this information is protected by the Federal Confidentiality of Alcohol and Drug Abuse Patient Records regulations: The Federal rules restrict any use of the information to criminally investigate or prosecute any alcohol or drug abuse patient.[facility] HospitalIn the event this information is protected by the Federal Confidentiality of Alcohol and Drug Abuse Patient Records regulations: The Federal rules restrict any use of the information to criminally investigate or prosecute any alcohol or drug abuse patient.[facility] HospitalIn the event this information is protected by the Federal Confidentiality of Alcohol and Drug Abuse Patient Records regulations: The Federal rules restrict any use of the information to criminally investigate or prosecute any alcohol or drug abuse patient.[facility] HospitalIn the event this information is protected by the Federal Confidentiality of Alcohol and Drug Abuse Patient Records regulations: The Federal rules restrict any use of the information to criminally investigate or prosecute any alcohol or drug abuse patient.[facility] HospitalIn the event this information is protected by the Federal Confidentiality of Alcohol and Drug Abuse Patient Records regulations: The Federal rules restrict any use of the information to criminally investigate or prosecute any alcohol or drug abuse patient.[facility] HospitalIn the event this information is protected by the Federal Confidentiality of Alcohol and Drug Abuse Patient Records regulations: The Federal rules restrict any use of the information to criminally investigate or prosecute any alcohol or drug abuse patient.[facility] HospitalIn the event this information is protected by the Federal Confidentiality of Alcohol and Drug Abuse Patient Records regulations: The Federal rules restrict any use of the information to criminally investigate or prosecute any alcohol or drug abuse patient.[facility] HospitalIn the event this information is protected by the Federal Confidentiality of Alcohol and Drug Abuse Patient Records regulations: The Federal rules restrict any use of the information to criminally investigate or prosecute any alcohol or drug abuse patient.[facility] HospitalIn the event this information is protected by the Federal Confidentiality of Alcohol and Drug Abuse Patient Records regulations: The Federal rules restrict any use of the information to criminally investigate or prosecute any alcohol or drug abuse patient.[facility] HospitalIn the event this information is protected by the Federal Confidentiality of Alcohol and Drug Abuse Patient Records regulations: The Federal rules restrict any use of the information to criminally investigate or prosecute any alcohol or drug abuse patient.[facility] HospitalIn the event this information is protected by the Federal Confidentiality of Alcohol and Drug Abuse Patient Records regulations: The Federal rules restrict any use of the information to criminally investigate or prosecute any alcohol or drug abuse patient.[facility] HospitalIn the event this information is protected by the Federal Confidentiality of Alcohol and Drug Abuse Patient Records regulations: The Federal rules restrict any use of the information to criminally investigate or prosecute any alcohol or drug abuse patient.[facility] HospitalIn the event this information is protected by the Federal Confidentiality of Alcohol and Drug Abuse Patient Records regulations: The Federal rules restrict any use of the information to criminally investigate or prosecute any alcohol or drug abuse patient.[facility] HospitalIn the event this information is protected by the Federal Confidentiality of Alcohol and Drug Abuse Patient Records regulations: The Federal rules restrict any use of the information to criminally investigate or prosecute any alcohol or drug abuse patient.[facility] HospitalIn the event this information is protected by the Federal Confidentiality of Alcohol and Drug Abuse Patient Records regulations: The Federal rules restrict any use of the information to criminally investigate or prosecute any alcohol or drug abuse patient.[facility] HospitalIn the event this information is protected by the Federal Confidentiality of Alcohol and Drug Abuse Patient Records regulations: The Federal rules restrict any use of the information to criminally investigate or prosecute any alcohol or drug abuse patient.[facility] HospitalIn the event this information is protected by the Federal Confidentiality of Alcohol and Drug Abuse Patient Records regulations: The Federal rules restrict any use of the information to criminally investigate or prosecute any alcohol or drug abuse patient.[facility] HospitalIn the event this information is protected by the Federal Confidentiality of Alcohol and Drug Abuse Patient Records regulations: The Federal rules restrict any use of the information to criminally investigate or prosecute any alcohol or drug abuse patient.[facility] HospitalIn the event this information is protected by the Federal Confidentiality of Alcohol and Drug Abuse Patient Records regulations: The Federal rules restrict any use of the information to criminally investigate or prosecute any alcohol or drug abuse patient.[facility] HospitalIn the event this information is protected by the Federal Confidentiality of Alcohol and Drug Abuse Patient Records regulations: The Federal rules restrict any use of the information to criminally investigate or prosecute any alcohol or drug abuse patient.[facility] HospitalIn the event this information is protected by the Federal Confidentiality of Alcohol and Drug Abuse Patient Records regulations: The Federal rules restrict any use of the information to criminally investigate or prosecute any alcohol or drug abuse patient.[facility] HospitalIn the event this information is protected by the Federal Confidentiality of Alcohol and Drug Abuse Patient Records regulations: The Federal rules restrict any use of the information to criminally investigate or prosecute any alcohol or drug abuse patient.[facility] HospitalIn the event this information is protected [...] or prosecute any alcohol or drug abuse patient.[facility] HospitalIn the event this information is protected by the Federal Confidentiality of Alcohol and Drug Abuse Patient Records regulations: The Federal rules restrict any use of the information to criminally investigate or prosecute any alcohol or drug abuse patient.[facility] HospitalIn the event this information is protected by the Federal Confidentiality of Alcohol and Drug Abuse Patient Records regulations: The Federal rules restrict any use of the information to criminally investigate or prosecute any alcohol or drug abuse patient.[facility] HospitalIn the event this information is protected by the Federal Confidentiality of Alcohol and Drug Abuse Patient Records regulations: The Federal rules restrict any use of the information to criminally investigate or prosecute any alcohol or drug abuse patient.[facility] HospitalIn the event this information is protected by the Federal Confidentiality of Alcohol and Drug Abuse Patient Records regulations: The Federal rules restrict any use of the information to criminally investigate or prosecute any alcohol or drug abuse patient.[facility] HospitalIn the event this information is protected by the Federal Confidentiality of Alcohol and Drug Abuse Patient Records regulations: The Federal rules restrict any use of the information to criminally investigate or prosecute any alcohol or drug abuse patient.[facility] HospitalIn the event this information is protected by the Federal Confidentiality of Alcohol and Drug Abuse Patient Records regulations: The Federal rules restrict any use of the information to criminally investigate or prosecute any alcohol or drug abuse patient.[facility] HospitalIn the event this information is protected by the Federal Confidentiality of Alcohol and Drug Abuse Patient Records regulations: The Federal rules restrict any use of the information to criminally investigate or prosecute any alcohol or drug abuse patient.[facility] HospitalIn the event this information is protected by the Federal Confidentiality of Alcohol and Drug Abuse Patient Records regulations: The Federal rules restrict any use of the information to criminally investigate or prosecute any alcohol or drug abuse patient.[facility] HospitalIn the event this information is protected by the Federal Confidentiality of Alcohol and Drug Abuse Patient Records regulations: The Federal rules restrict any use of the information to criminally investigate or prosecute any alcohol or drug abuse patient.[facility] HospitalIn the event this information is protected by the Federal Confidentiality of Alcohol and Drug Abuse Patient Records regulations: The Federal rules restrict any use of the information to criminally investigate or prosecute any alcohol or drug abuse patient.[facility] HospitalIn the event this information is protected by the Federal Confidentiality of Alcohol and Drug Abuse Patient Records regulations: The Federal rules restrict any use of the information to criminally investigate or prosecute any alcohol or drug abuse patient.[facility] HospitalIn the event this information is protected by the Federal Confidentiality of Alcohol and Drug Abuse Patient Records regulations: The Federal rules restrict any use of the information to criminally investigate or prosecute any alcohol or drug abuse patient.[facility] HospitalIn the event this information is protected by the Federal Confidentiality of Alcohol and Drug Abuse Patient Records regulations: The Federal rules restrict any use of the information to criminally investigate or prosecute any alcohol or drug abuse patient.[facility] HospitalIn the event this information is protected by the Federal Confidentiality of Alcohol and Drug Abuse Patient Records regulations: The Federal rules restrict any use of the information to criminally investigate or prosecute any alcohol or drug abuse patient.[facility] HospitalIn the event this information is protected by the Federal Confidentiality of Alcohol and Drug Abuse Patient Records regulations: The Federal rules restrict any use of the information to criminally investigate or prosecute any alcohol or drug abuse patient.[facility] HospitalIn the event this information is protected by the Federal Confidentiality of Alcohol and Drug Abuse Patient Records regulations: The Federal rules restrict any use of the information to criminally investigate or prosecute any alcohol or drug abuse patient.[facility] HospitalIn the event this information is protected by the Federal Confidentiality of Alcohol and Drug Abuse Patient Records regulations: The Federal rules restrict any use of the information to criminally investigate or prosecute any alcohol or drug abuse patient.[facility] HospitalIn the event this information is protected by the Federal Confidentiality of Alcohol and Drug Abuse Patient Records regulations: The Federal rules restrict any use of the information to criminally investigate or prosecute any alcohol or drug abuse patient.[facility] HospitalIn the event this information is protected by the Federal Confidentiality of Alcohol and Drug Abuse Patient Records regulations: The Federal rules restrict any use of the information to criminally investigate or prosecute any alcohol or drug abuse patient.[facility] HospitalIn the event this information is protected by the Federal Confidentiality of Alcohol and Drug Abuse Patient Records regulations: The Federal rules restrict any use of the information to criminally investigate or prosecute any alcohol or drug abuse patient.[facility] HospitalIn the event this information is protected by the Federal Confidentiality of Alcohol and Drug Abuse Patient Records regulations: The Federal rules restrict any use of the information to criminally investigate or prosecute any alcohol or drug abuse patient.[facility] HospitalIn the event this information is protected by the Federal Confidentiality of Alcohol and Drug Abuse Patient Records regulations: The Federal rules restrict any use of the information to criminally investigate or prosecute any alcohol or drug abuse patient.[facility] HospitalIn the event this information is protected by the Federal Confidentiality of Alcohol and Drug Abuse Patient Records regulations: The Federal rules restrict any use of the information to criminally investigate or prosecute any alcohol or drug abuse patient.[facility] HospitalIn the event this information is protected by the Federal Confidentiality of Alcohol and Drug Abuse Patient Records regulations: The Federal rules restrict any use of the information to criminally investigate or prosecute any alcohol or drug abuse patient.[facility] HospitalIn the event this information is protected by the Federal Confidentiality of Alcohol and Drug Abuse Patient Records regulations: The Federal rules restrict any use of the information to criminally investigate or prosecute any alcohol or drug abuse patient.[facility] HospitalIn the event this information is protected by the Federal Confidentiality of Alcohol and Drug Abuse Patient Records regulations: The Federal rules restrict any use of the information to criminally investigate or prosecute any alcohol or drug abuse patient.[facility] HospitalIn the event this information is protected by the Federal Confidentiality of Alcohol and Drug Abuse Patient Records regulations: The Federal rules restrict any use of the information to criminally investigate or prosecute any alcohol or drug abuse patient.[facility] HospitalIn the event this information is protected by the Federal Confidentiality of Alcohol and Drug Abuse Patient Records regulations: The Federal rules restrict any use of the information to criminally investigate or prosecute any alcohol or drug abuse patient.[facility] HospitalIn the event this information is protected by the Federal Confidentiality of Alcohol and Drug Abuse Patient Records regulations: The Federal rules restrict any use of the information to criminally investigate or prosecute any alcohol or drug abuse patient.[facility] HospitalIn the event this information is protected by the Federal Confidentiality of Alcohol and Drug Abuse Patient Records regulations: The Federal rules restrict any use of the information to criminally investigate or prosecute any alcohol or drug abuse patient.[facility] HospitalIn the event this information is protected by the Federal Confidentiality of Alcohol and Drug Abuse Patient Records regulations: The Federal rules restrict any use of the information to criminally investigate or prosecute any alcohol or drug abuse patient.[facility] HospitalIn the event this information is protected by the Federal Confidentiality of Alcohol and Drug Abuse Patient Records regulations: The Federal rules restrict any use of the information to criminally investigate or prosecute any alcohol or drug abuse patient.[facility] HospitalIn the event this information is protected by the Federal Confidentiality of Alcohol and Drug Abuse Patient Records regulations: The Federal rules restrict any use of the information to criminally investigate or prosecute any alcohol or drug abuse patient.[facility] HospitalIn the event this information is protected by the Federal Confidentiality of Alcohol and Drug Abuse Patient Records regulations: The Federal rules restrict any use of the information to criminally investigate or prosecute any alcohol or drug abuse patient.[facility] HospitalIn the event this information is protected by the Federal Confidentiality of Alcohol and Drug Abuse Patient Records regulations: The Federal rules restrict any use of the information to criminally investigate or prosecute any alcohol or drug abuse patient.[facility] HospitalIn the event this information is protected by the Federal Confidentiality of Alcohol and Drug Abuse Patient Records regulations: The Federal rules restrict any use of the information to criminally investigate or prosecute any alcohol or drug abuse patient.[facility] HospitalIn the event this information is protected by the Federal Confidentiality of Alcohol and Drug Abuse Patient Records regulations: The Federal rules restrict any use of the information to criminally investigate or prosecute any alcohol or drug abuse patient.[facility] HospitalIn the event this information is protected by the Federal Confidentiality of Alcohol and Drug Abuse Patient Records regulations: The Federal rules restrict any use of the information to criminally investigate or prosecute any alcohol or drug abuse patient.[facility] HospitalIn the event this information is protected by the Federal Confidentiality of Alcohol and Drug Abuse Patient Records regulations: The Federal rules restrict any use of the information to criminally investigate or prosecute any alcohol or drug abuse patient.[facility] HospitalIn the event this information is protected by the Federal Confidentiality of Alcohol and Drug Abuse Patient Records regulations: The Federal rules restrict any use of the information to criminally investigate or prosecute any alcohol or drug abuse patient.[facility] HospitalIn the event this information is protected by the Federal Confidentiality of Alcohol and Drug Abuse Patient Records regulations: The Federal rules restrict any use of the information to criminally investigate or prosecute any alcohol or drug abuse patient.[facility] HospitalIn the event this information is protected by the Federal Confidentiality of Alcohol and Drug Abuse Patient Records regulations: The Federal rules restrict any use of the information to criminally investigate or prosecute any alcohol or drug abuse patient.[facility] HospitalIn the event this information is protected by the Federal Confidentiality of Alcohol and Drug Abuse Patient Records regulations: The Federal rules restrict any use of the information to criminally investigate or prosecute any alcohol or drug abuse patient.[facility] HospitalIn the event this information is protected by the Federal Confidentiality of Alcohol and Drug Abuse Patient Records regulations: The Federal rules restrict any use of the information to criminally investigate or prosecute any alcohol or drug abuse patient.[facility] HospitalIn the event this information is protected by the Federal Confidentiality of Alcohol and Drug Abuse Patient Records regulations: The Federal rules restrict any use of the information to criminally investigate or prosecute any alcohol or drug abuse patient.[facility] HospitalIn the event this information is protected by the Federal Confidentiality of Alcohol and Drug Abuse Patient Records regulations: The Federal rules restrict any use of the information to criminally investigate or prosecute any alcohol or drug abuse patient.[facility] HospitalIn the event this information is protected by the Federal Confidentiality of Alcohol and Drug Abuse Patient Records regulations: The Federal rules restrict any use of the information to criminally investigate or prosecute any alcohol or drug abuse patient.[facility] HospitalIn the event this information is protected by the Federal Confidentiality of Alcohol and Drug Abuse Patient Records regulations: The Federal rules restrict any use of the information to criminally investigate or prosecute any alcohol or drug abuse patient.[facility] HospitalIn the event this information is protected [...] or prosecute any alcohol or drug abuse patient.[facility] HospitalIn the event this information is protected by the Federal Confidentiality of Alcohol and Drug Abuse Patient Records regulations: The Federal rules restrict any use of the information to criminally investigate or prosecute any alcohol or drug abuse patient.[facility] HospitalIn the event this information is protected by the Federal Confidentiality of Alcohol and Drug Abuse Patient Records regulations: The Federal rules restrict any use of the information to criminally investigate or prosecute any alcohol or drug abuse patient.[facility] HospitalIn the event this information is protected by the Federal Confidentiality of Alcohol and Drug Abuse Patient Records regulations: The Federal rules restrict any use of the information to criminally investigate or prosecute any alcohol or drug abuse patient.[facility] HospitalIn the event this information is protected by the Federal Confidentiality of Alcohol and Drug Abuse Patient Records regulations: The Federal rules restrict any use of the information to criminally investigate or prosecute any alcohol or drug abuse patient.[facility] HospitalIn the event this information is protected by the Federal Confidentiality of Alcohol and Drug Abuse Patient Records regulations: The Federal rules restrict any use of the information to criminally investigate or prosecute any alcohol or drug abuse patient.[facility] HospitalIn the event this information is protected by the Federal Confidentiality of Alcohol and Drug Abuse Patient Records regulations: The Federal rules restrict any use of the information to criminally investigate or prosecute any alcohol or drug abuse patient.[facility] HospitalIn the event this information is protected by the Federal Confidentiality of Alcohol and Drug Abuse Patient Records regulations: The Federal rules restrict any use of the information to criminally investigate or prosecute any alcohol or drug abuse patient.[facility] HospitalIn the event this information is protected by the Federal Confidentiality of Alcohol and Drug Abuse Patient Records regulations: The Federal rules restrict any use of the information to criminally investigate or prosecute any alcohol or drug abuse patient.[facility] HospitalIn the event this information is protected by the Federal Confidentiality of Alcohol and Drug Abuse Patient Records regulations: The Federal rules restrict any use of the information to criminally investigate or prosecute any alcohol or drug abuse patient.[facility] HospitalIn the event this information is protected by the Federal Confidentiality of Alcohol and Drug Abuse Patient Records regulations: The Federal rules restrict any use of the information to criminally investigate or prosecute any alcohol or drug abuse patient.[facility] HospitalIn the event this information is protected by the Federal Confidentiality of Alcohol and Drug Abuse Patient Records regulations: The Federal rules restrict any use of the information to criminally investigate or prosecute any alcohol or drug abuse patient.[facility] HospitalIn the event this information is protected by the Federal Confidentiality of Alcohol and Drug Abuse Patient Records regulations: The Federal rules restrict any use of the information to criminally investigate or prosecute any alcohol or drug abuse patient.[facility] HospitalIn the event this information is protected by the Federal Confidentiality of Alcohol and Drug Abuse Patient Records regulations: The Federal rules restrict any use of the information to criminally investigate or prosecute any alcohol or drug abuse patient.[facility] HospitalIn the event this information is protected by the Federal Confidentiality of Alcohol and Drug Abuse Patient Records regulations: The Federal rules restrict any use of the information to criminally investigate or prosecute any alcohol or drug abuse patient.[facility] HospitalIn the event this information is protected by the Federal Confidentiality of Alcohol and Drug Abuse Patient Records regulations: The Federal rules restrict any use of the information to criminally investigate or prosecute any alcohol or drug abuse patient.[facility] HospitalIn the event this information is protected by the Federal Confidentiality of Alcohol and Drug Abuse Patient Records regulations: The Federal rules restrict any use of the information to criminally investigate or prosecute any alcohol or drug abuse patient.[facility] HospitalIn the event this information is protected by the Federal Confidentiality of Alcohol and Drug Abuse Patient Records regulations: The Federal rules restrict any use of the information to criminally investigate or prosecute any alcohol or drug abuse patient.[facility] HospitalIn the event this information is protected by the Federal Confidentiality of Alcohol and Drug Abuse Patient Records regulations: The Federal rules restrict any use of the information to criminally investigate or prosecute any alcohol or drug abuse patient.[facility] HospitalIn the event this information is protected by the Federal Confidentiality of Alcohol and Drug Abuse Patient Records regulations: The Federal rules restrict any use of the information to criminally investigate or prosecute any alcohol or drug abuse patient.[facility] HospitalIn the event this information is protected by the Federal Confidentiality of Alcohol and Drug Abuse Patient Records regulations: The Federal rules restrict any use of the information to criminally investigate or prosecute any alcohol or drug abuse patient.[facility] HospitalIn the event this information is protected by the Federal Confidentiality of Alcohol and Drug Abuse Patient Records regulations: The Federal rules restrict any use of the information to criminally investigate or prosecute any alcohol or drug abuse patient.[facility] HospitalIn the event this information is protected by the Federal Confidentiality of Alcohol and Drug Abuse Patient Records regulations: The Federal rules restrict any use of the information to criminally investigate or prosecute any alcohol or drug abuse patient.[facility] HospitalIn the event this information is protected by the Federal Confidentiality of Alcohol and Drug Abuse Patient Records regulations: The Federal rules restrict any use of the information to criminally investigate or prosecute any alcohol or drug abuse patient.[facility] HospitalIn the event this information is protected by the Federal Confidentiality of Alcohol and Drug Abuse Patient Records regulations: The Federal rules restrict any use of the information to criminally investigate or prosecute any alcohol or drug abuse patient.[facility] HospitalIn the event this information is protected by the Federal Confidentiality of Alcohol and Drug Abuse Patient Records regulations: The Federal rules restrict any use of the information to criminally investigate or prosecute any alcohol or drug abuse patient.[facility] HospitalIn the event this information is protected by the Federal Confidentiality of Alcohol and Drug Abuse Patient Records regulations: The Federal rules restrict any use of the information to criminally investigate or prosecute any alcohol or drug abuse patient.[facility] HospitalIn the event this information is protected by the Federal Confidentiality of Alcohol and Drug Abuse Patient Records regulations: The Federal rules restrict any use of the information to criminally investigate or prosecute any alcohol or drug abuse patient.[facility] HospitalIn the event this information is protected by the Federal Confidentiality of Alcohol and Drug Abuse Patient Records regulations: The Federal rules restrict any use of the information to criminally investigate or prosecute any alcohol or drug abuse patient.[facility] HospitalIn the event this information is protected by the Federal Confidentiality of Alcohol and Drug Abuse Patient Records regulations: The Federal rules restrict any use of the information to criminally investigate or prosecute any alcohol or drug abuse patient.[facility] HospitalIn the event this information is protected by the Federal Confidentiality of Alcohol and Drug Abuse Patient Records regulations: The Federal rules restrict any use of the information to criminally investigate or prosecute any alcohol or drug abuse patient.[facility] HospitalIn the event this information is protected by the Federal Confidentiality of Alcohol and Drug Abuse Patient Records regulations: The Federal rules restrict any use of the information to criminally investigate or prosecute any alcohol or drug abuse patient.[facility] HospitalIn the event this information is protected by the Federal Confidentiality of Alcohol and Drug Abuse Patient Records regulations: The Federal rules restrict any use of the information to criminally investigate or prosecute any alcohol or drug abuse patient.[facility] HospitalIn the event this information is protected by the Federal Confidentiality of Alcohol and Drug Abuse Patient Records regulations: The Federal rules restrict any use of the information to criminally investigate or prosecute any alcohol or drug abuse patient.[facility] HospitalIn the event this information is protected by the Federal Confidentiality of Alcohol and Drug Abuse Patient Records regulations: The Federal rules restrict any use of the information to criminally investigate or prosecute any alcohol or drug abuse patient.[facility] HospitalIn the event this information is protected by the Federal Confidentiality of Alcohol and Drug Abuse Patient Records regulations: The Federal rules restrict any use of the information to criminally investigate or prosecute any alcohol or drug abuse patient.[facility] HospitalIn the event this information is protected by the Federal Confidentiality of Alcohol and Drug Abuse Patient Records regulations: The Federal rules restrict any use of the information to criminally investigate or prosecute any alcohol or drug abuse patient.[facility] HospitalIn the event this information is protected by the Federal Confidentiality of Alcohol and Drug Abuse Patient Records regulations: The Federal rules restrict any use of the information to criminally investigate or prosecute any alcohol or drug abuse patient.[facility] HospitalIn the event this information is protected by the Federal Confidentiality of Alcohol and Drug Abuse Patient Records regulations: The Federal rules restrict any use of the information to criminally investigate or prosecute any alcohol or drug abuse patient.[facility] HospitalIn the event this information is protected by the Federal Confidentiality of Alcohol and Drug Abuse Patient Records regulations: The Federal rules restrict any use of the information to criminally investigate or prosecute any alcohol or drug abuse patient.[facility] HospitalIn the event this information is protected by the Federal Confidentiality of Alcohol and Drug Abuse Patient Records regulations: The Federal rules restrict any use of the information to criminally investigate or prosecute any alcohol or drug abuse patient.[facility] HospitalIn the event this information is protected by the Federal Confidentiality of Alcohol and Drug Abuse Patient Records regulations: The Federal rules restrict any use of the information to criminally investigate or prosecute any alcohol or drug abuse patient.[facility] HospitalIn the event this information is protected by the Federal Confidentiality of Alcohol and Drug Abuse Patient Records regulations: The Federal rules restrict any use of the information to criminally investigate or prosecute any alcohol or drug abuse patient.[facility] HospitalIn the event this information is protected by the Federal Confidentiality of Alcohol and Drug Abuse Patient Records regulations: The Federal rules restrict any use of the information to criminally investigate or prosecute any alcohol or drug abuse patient.[facility] HospitalIn the event this information is protected by the Federal Confidentiality of Alcohol and Drug Abuse Patient Records regulations: The Federal rules restrict any use of the information to criminally investigate or prosecute any alcohol or drug abuse patient.[facility] HospitalIn the event this information is protected by the Federal Confidentiality of Alcohol and Drug Abuse Patient Records regulations: The Federal rules restrict any use of the information to criminally investigate or prosecute any alcohol or drug abuse patient.[facility] Ordered Prescriptions (unrec ognized section and [...] BE BASED ON THE PRIMARY CLINICAL RECORDS. [employer] provides no warranty or guarantee of the accuracy or completeness of information in this document.
[2023-08-19 12:15] LABS: Eosinophils Absolute Auto 0.1 10^3/uL (0.0-0.7); Eosinophils Percent Auto 2.7 % (0.9-7.0); Hematocrit 32.3 % (36.0-48.0); Hemoglobin 10.7 g/dL (12.0-16.0); Immature Granulocytes Abs Auto 0.01 10^3/uL (0.00-0.03); Immature Granulocytes Pct Auto 0.2 % (0.0-0.5); Lymphocytes Absolute Auto 1.6 10^3/uL (1.2-3.8); Lymphocytes Percent Auto 37.9 % (20.5-60.0); Mean Corpuscular HGB Conc 33.1 g/dL (29.9-35.2); Mean Corpuscular Hemoglobin 29.2 pg (26.7-34.0); Mean Platelet Volume 11.4 fL (9.5-13.5); Monocytes Absolute Auto 0.4 10^3/uL (0.3-0.8); Monocytes Percent Auto 9.2 % (1.7-12.0); Platelet Count 243 10^3/uL (150-450); Red Blood Count 3.67 10^6/uL (4.20-5.40); Red Cell Distribution Width 12.3 % (11.0-15.0); White Blood Count 4.1 10^3/uL (4.0-11.0)
[2023-08-19 12:28] LABS: Alanine Aminotransferase 29 U/L (14-59); Albumin Globulin Ratio 1.1; Albumin Level 3.3 g/dL (3.4-5.0); Alkaline Phosphatase 63 U/L (46-116); Anion Gap 13.8; Aspartate Amino Transferase 40 U/L (15-37); BUN Creatinine Ratio 11.4; Bilirubin Total 0.3 mg/dL (0.2-1.0); Calcium 7.7 mg/dL (8.5-10.1); Chloride 103 mmol/L (98-107); Estimated GFR (African America >60 (>=60); Estimated GFR (Non-African Ame >60 (>=60); Glucose 86 mg/dL (74-106); Phosphorus 2.8 mg/dL (2.6-4.7); Potassium 3.8 mmol/L (3.5-5.1); Sodium 138 mmol/L (136-145); Total Protein 6.3 g/dL (6.4-8.2); Triglycerides 78 mg/dL (<=150)
== END 2023-08-19 11:44 | disposition home or self-care (01) ==
LOC: LAB 11:43
PROVIDERS: PCP Family Medicine; Visit Provider Family Medicine
DX: E44.0 Moderate protein-calorie malnutrition (principal); R11.2 Nausea with vomiting, unspecified; E78.5 Hyperlipidemia, unspecified
CPT/HCPCS: 36415; 80053; 83735; 84100; 84478; 85025

== ENCOUNTER 2023-08-27 15:06 | Outpatient (REF) | payer OTHER, SELFPAY ==
[2023-08-27 16:19] LABS: Basophils Percent Auto 0.2 % (0.2-2.0); Hematocrit 31.8 % (36.0-48.0); Hemoglobin 10.4 g/dL (12.0-16.0); Immature Granulocytes Abs Auto 0.01 10^3/uL (0.00-0.03); Immature Granulocytes Pct Auto 0.2 % (0.0-0.5); Lymphocytes Absolute Auto 0.9 10^3/uL (1.2-3.8); Lymphocytes Percent Auto 15.1 % (20.5-60.0); Mean Corpuscular HGB Conc 32.7 g/dL (29.9-35.2); Mean Corpuscular Hemoglobin 29.1 pg (26.7-34.0); Mean Corpuscular Volume 89.1 fL (81.0-99.0); Mean Platelet Volume 12.1 fL (9.5-13.5); Monocytes Absolute Auto 0.2 10^3/uL (0.3-0.8); Monocytes Percent Auto 3.2 % (1.7-12.0); Neutrophils Absolute Auto 4.6 10^3/uL (1.4-6.5); Neutrophils Percent Auto 81.3 % (43.0-75.0); Platelet Count 265 10^3/uL (150-450); Red Blood Count 3.57 10^6/uL (4.20-5.40); Red Cell Distribution Width 13.2 % (11.0-15.0); White Blood Count 5.7 10^3/uL (4.0-11.0)
[2023-08-27 18:41] LABS: Alanine Aminotransferase 41 U/L (14-59); Albumin Globulin Ratio 1.1; Albumin Level 3.3 g/dL (3.4-5.0); Alkaline Phosphatase 65 U/L (46-116); Anion Gap 15.1; Aspartate Amino Transferase 45 U/L (15-37); BUN Creatinine Ratio 14.5; Bilirubin Total 0.3 mg/dL (0.2-1.0); Calcium 8.2 mg/dL (8.5-10.1); Carbon Dioxide 24.4 mmol/L (21.0-32.0); Chloride 106 mmol/L (98-107); Estimated GFR (African America >60 (>=60); Estimated GFR (Non-African Ame >60 (>=60); Globulin 3.1 g/dL; Glucose 148 mg/dL (74-106); Magnesium 1.9 mg/dL (1.8-2.4); Phosphorus 3.3 mg/dL (2.6-4.7); Potassium 3.5 mmol/L (3.5-5.1); Sodium 142 mmol/L (136-145); Total Protein 6.4 g/dL (6.4-8.2); Triglycerides 65 mg/dL (<=150)
== END 2023-08-27 15:07 | disposition home or self-care (01) ==
LOC: LAB 15:06
PROVIDERS: PCP Family Medicine; Visit Provider Family Medicine
DX: R11.2 Nausea with vomiting, unspecified (principal); E44.0 Moderate protein-calorie malnutrition; E78.5 Hyperlipidemia, unspecified
CPT/HCPCS: 36415; 80053; 83735; 84100; 84478; 85025

== ENCOUNTER 2023-09-04 09:56 | Outpatient (REF) | payer OTHER, SELFPAY ==
[2023-09-04 10:14] LABS: Basophils Percent Auto 0.3 % (0.2-2.0); Eosinophils Percent Auto 0.7 % (0.9-7.0); Hematocrit 35.3 % (36.0-48.0); Hemoglobin 11.3 g/dL (12.0-16.0); Immature Granulocytes Abs Auto 0.02 10^3/uL (0.00-0.03); Immature Granulocytes Pct Auto 0.3 % (0.0-0.5); Lymphocytes Absolute Auto 1.1 10^3/uL (1.2-3.8); Lymphocytes Percent Auto 19.9 % (20.5-60.0); Mean Corpuscular Hemoglobin 28.1 pg (26.7-34.0); Mean Corpuscular Volume 87.8 fL (81.0-99.0); Monocytes Absolute Auto 0.3 10^3/uL (0.3-0.8); Monocytes Percent Auto 5.4 % (1.7-12.0); Neutrophils Absolute Auto 4.2 10^3/uL (1.4-6.5); Neutrophils Percent Auto 73.4 % (43.0-75.0); Platelet Count 301 10^3/uL (150-450); Red Blood Count 4.02 10^6/uL (4.20-5.40); White Blood Count 5.7 10^3/uL (4.0-11.0)
--- OUTSIDE RECORDS SUMMARY | 2023-09-04 10:17 | XMS_ITS | CCD ---
Author Organization [facility] Care Team Providers Care Building Maintenance Engineer Name Role Phone PHYSICIAN, DEFAULT Unavailable Unavailable PHYSICIAN, DEFAULT Unavailable Unavailable Shanna June Primary Care Provider Unavail able Slade ROOM SERVICE ASSOCIATE, Shanna Primary Care Provider Mona vailable Slade ENGINEERING SCIENTIST - CURTAIN INSPECTOR, Shanna Primary Care Provid er LUCIE MORA Attending Unavailable SHANNA JUNE Primary Care Unavailable SHANNA JUNE Referring Unavailable LUCIE MORA Attending Unavailable SHANNA JUNE Primary Care Unavailable SELF, SELF Referring Unavailable Antelmo Davey Unavailable Deacon Kat MD Unavailable [phone] Shanna June CNP Unavailable Shanna June CNP Primary Care Provider Antelmo Davey MD Unavailable Wally Foley Primary Care Provider [phone] Shanna June Unavailable Wally Foley Primary Care Provider Antelmo Davey MD Unavailable Deacon Kat MD Unavailable [phone] Shanna June CNP Unavailable [phone] Shanna June CNP Primary Care Provider Antelmo Davey MD Unavailable Deacon Kat MD Unavailable Shanna June CNP Unavailable Shanna June CNP Primary Care Provider Slade BLASTING MACHINE OPERATOR, Shanna Unavailable [phone] Slade BLASTING MACHINE OPERATOR, Shanna Primary Care Provider Tamica JOHNSON Edcharles Unger Unavailable Jacquelyn JOHNSON Deacon Gregory Unavailable Slade BLASTING MACHINE OPERATOR, Shanna Unavailable Slade BLASTING MACHINE OPERATOR, Shanna Primary Care Provider Wally Foley MD Primary Care Provider [phone] Jaquan Morrow Primary Care Physician [phone] Agustin Valentino Unavailable Jaquan Morrow Primary Care [...] Unavailable ZURDO ., DR BURCH Admitting Unavailable [place], DR BALDOMERO Campos Consulting Unavailable ZURDO ., DR BURCH Consulting Unavailable FOLEY ., DR WALLY Graf Primary Care Unavailable FOLEY ., DR WALLY Graf Consulting Unavailable FOLEY ., DR WALLY Graf Attending Unavailable FOLEY ., DR WALLY Graf Admitting Unavailable FOLEY ., DR WLALY Graf Primary Care Unavailable FOLEY ., DR [...] ZURDO ., DR BURCH Referring Unavailable GIEDRAITIS, ANDBRENDAUS Attending Unavailable GIEDRAITIS, ANDRIUS Admitting Unavailable Agustin Valentino Unavailable Agustin Bautista Unavailable [phone] Wally Foley Primary Care Provider WALLY FOLEY Primary Care Unavailable EMMY WATSON [id number] Attending Unavailable WALLY FOLEY Primary Care Unavailable JD RAINEY Attending Unavailable WALLY FOLEY Primary Care Unavailable Shanna Roberts Primary Care Provider Mona vakayeble DIMITRI WALKER Attending Unavailable SLADE SHANNA Primary Care Unavailable Giedraitis Michelle JHONSON Attending Unavailable JAQUAN MORROW Primary Care Unavailable CRISTHIAN, JAQUAN Primary Care Unavailable RODRIGUEZ Attending Unavailable CAMDEN RODRIGUZE Admitting Unavailable CRISTHIAN, JAQUAN Primary Care Unavailable BRUNO WHEAT Consulting Unavailable CORIE HENDRICKSON Attending Unavailable Cristhian ENGINEERING SCIENTIST.Jaquan CAMPOS Primary Care Provider JAQUAN MORROW L Primary Care Unavailable VIC RAMOS Attending Unavailable VIC RAMOS Admitting Unavailable ZEYAD Morrow-C Jaquan Ortega Primary Care Provider DO Claus Obrien Emergency Provider [phone] GENERIC PROVIDER, NO ASSIGNED PCP Primary Care Unavailable Generic Provider , No Assigned Pcp Primary Car e Provider Unavailable Generic Provider , No Assigned Pcp Primary Car e Provider Unavailable Jannyore, ROOM SERVICE ASSOCIATE-BC Trace E Emergency Provider [phone] Generic Provider , No Assigned Pcp Primary Car e Provider Unavailable Cristhian, CURTAIN INSPECTOR-C Jaquan Ortega Primary Care Provider Beverley [facility] Trace E Emergency Provider SLIM Parker Emergency Provider Cristhian ENGINEERING SCIENTIST.BETH, Jaquan L Primary Care Provider [phone] Generic Provider , No Assigned Pcp Primary Car e Provider Unavailable GENERIC PROVIDER, NO ASSIGNED PCP Primary Care Unavailable Deacon Kat MD Unavailable [phone] Generic Provider , No Assigned Pcp Primary Car e Provider Unavailable BERNARDINOPABLO ESPINAL Attending Unavailable CRISTHIAN, JAQUAN L Primary Care [...] CRISTHIAN, JAQUAN L Primary Care Unavailable Cristhian, CURTAIN INSPECTOR-C Jaquan Ortega Primary Care Provider MD Thomas Calix Primary Care Provider [phone] GABRIELLA Sabillon Emergency Provider [phone] MD Tahir Whitt Admit Provider MD Tahir Whitt Attending Provider DO Camden Rodriguez Admit Provider DO Camden Rodriguez Attending Provider [phone] MD Keven Kimbrough Other Provider SHERRY MAGAÑA [...] SHERRY MAGAÑA Admitting Unavailable DOLORES COX Attending Unavaila JIN Holt Consulting Unavailable PALOMO, MIGUEL ANGEL Primary Care Unavailable GENERIC PROVIDER, NO ASSIGNED PCP Primary Care Unavailable PALOMO, MIGUEL ANGEL Primary Care Unavailable EVE AGOSTO Consulting Unavailable SHERRY MAGAÑA Admitting Unavailable SHERRY MAGAÑA Attending Unavailable SHERRY MAGAÑA Consulting Unavailable GLOVABECKY GUTIERREZ Consulting Unavailable JAH-ULI, KURT Consulting Unavailable GABRIELLA MAGAÑAOSBAHMAN M Attending Unavailable SHERRY MAGAÑA M Attending Unavailable WINTER RICKETTS Primary Care Unavailable SHERRY MAGAÑA M Attending Unavailable GENERIC PROVIDER, NO ASSIGNED PCP Primary Care Unavailable GENERIC PROVIDER, NO ASSIGNED PCP Primary Care Unavailable BALDOMERO WOODARD Admitting Unavailable DOLORES COX Attending Unavaila ble SHERRY MAGAÑA Consulting Unavailable DAVID VALADEZ Referring Unavailable GENERIC PROVIDER, NO ASSIGNED PCP Primary Care Unavailable CRISTHIAN, JAQUAN L Primary Care Unavailable TIFFANIE CHIU Attending UnavailSYLVAIN Cifuentes Referring Unavailable CRISTHIAN, JAQUAN L Primary Care Unavailable GUTNICK, DEACON R Referring Unavailable CRISTHIAN, JAQUAN L Primary Care Unavailable GUTNICK, DEACON R Admitting Unavailable GUTNICK, DEACON R Attending Unavailable EARNEST MC Referring Unavailable CRISTHIAN, JAQUAN L Primary Care Unavailable CRISTHIAN, JAQUAN L Primary Care Unavailable GUTNICK, DEACON R Admitting Unavailable GUTNICK, DEACON R Attending Unavailable CRISTHIAN, JAQUAN L Primary Care Unavailable CRISTHIAN, JAQUAN L Primary Care Unavailable DO HAMM CHRISTOPHER Attending Unavaila ble CRISTHIAN, JAQUAN L Primary Care Unavailable GUTNICK, DEACON R Admitting Unavailable ARCHIE BURGOSR Consulting Unavailable GUTNICK, DEACON R Attending Unavailable GUTNICK, DEACON R Referring Unavailable CRISTHIAN, JAQUAN L Primary Care Unavailable GUTNICK, DEACON R Admitting Unavailable GUTNICK, DEACON R Attending Unavailable DO Jeramy Cunningham Emergency Provider MARCOS MORENO Attending Unavailable JR. KELVIN, TINO Abbasi Attending Unavaila rogelio WARREN JR., GEORGE C Referring Unavaila ble Agustin Bautista Unavailable Evette JOHNSON, Thomas Flores Primary Care Provider NONE, XXXX Primary Care Physician Unavailab yrn Garcia, Mateusz M. Attending Unavailable Earnest Jett Attending Unavailable Cristhian, Jaquan Johnson Attending Unavailable Cristhian, Jaquan Johnson Attending Unavailable Cristhian, Jaquan Johnson Attending Unavailable Cristhian, Jaquan Johnson Attending Unavailable Cristhian, Jaquan Johnson Attending Unavailable Cristhian, Jaquan Johnson Attending Unavailable Cristhian, Jaquan Johnson Attending Unavailable Lokesh Terry Attending Unavailable Cristhian, Jaquan Johnson Attending Unavailable Cristhian, Jaquan Johnson Attending Unavailable Cristhian, Jaquan Johnson Attending Unavailable Cristhian, Jaquan L Admitting Unavailable Cristhian, Jaquan L Admitting Unavailable Cristhian, Jaquan L Admitting Unavailable Cristhian, Jaquan Johnson Attending Unavailable Cristhian, Jaquan Johnson Attending Unavailable Cristhian, Jaquan Johnson Attending Unavailable Cristhian, Jaquan Johnson Attending Unavailable Cristhian, Jaquan Johnson Attending Unavailable Cristhian, Jaquan Johnson Attending Unavailable Johnie, Earnest Attending Unavailable Hasamm, Astrjessenia H Attending Unavailable Johnie, Earnest Attending Unavailable Cristhian, Jaquan Johnson Admitting Unavailable Cristhian, Jaquan Johnson Admitting Unavailable Cristhian, Jaquan Johnson Attending Unavailable Rajni Rouse Attending Unavailable OLGA GATICA Attending Unavailable Johnie, Earnest Attending Unavailable Jose Ramon, Astrjessenia H Attending Unavailable Mateusz Garcia Attending Unavailable Mateusz Garcia Attending Unavailable Mateusz Garcia Attending Unavailable Cristhian, Jaquan Johnson Attending Unavailable Cristhian, Jaquan Johnson Admitting Unavailable Moncho Trejo Attending Unavailable Moncho Terjo Admitting Unavailable Jon Rivera Talal Consulting Unavaila MD Jon Good Talal Consulting Unava ilable Jon Rivera Talal Consulting Unavaila Jon Good Talal Consulting Unavaila ble Adamowicz, Gabino Consulting Unavailable Adamowicz, DO Gabino Consulting Unavailabl e Adamowicz, Gabino Consulting Unavailable Adamowicz, Gabino Consulting Unavailable Adamowicz, Gabino Consulting Unavailable Adamowicz, Gabino Consulting Unavailable Adamowicz, Gabino Consulting Unavailable Adamowicz, Gabino Consulting Unavailable Adamowicz, Gabino Consulting Unavailable RAYNA BILLINGSLEY Attending Unavailable CRISTHIAN, JAQUAN Johnson Primary Care Unavailable CHEYENNE FARNSWORTH Consulting Unavailable JACOBO LYNCH Admitting Unavailable MARIA TERESA MURILLO Attending Unavailable HOY, THOMAS M Primary Care Unavailable LIBBY URBINA Admitting Unavailable LUCY, MAIDACHRISTIANO Attending Unavailable CRISELDA NO Admitting Unavailable CHETNA NESS Consulting Unavailable CRISTHIAN, JAQUAN L Primary Care Unavailable CRISTHIAN, JAQUAN L Primary Care Unavailable GUTNICKDEACON R Referring Unavailable CRISTHIAN, JAQUAN L Primary Care Unavailable JACKSON ANDERSON Referring Unavailab KEESHA Cook Attending Unavailable ERICAIBI, STEVE Attending Unavailable ELISA VIVEROS Consulting Unavailable BEATRICE, RASHMI Admitting Unavailable CRISTHIAN, JAQUAN L Primary Care Unavailable CRISTHIAN, JAQUAN L Primary Care Unavailable ADIBI, STEVE Admitting Unavailable MANICKAM, SUNDARA Attending Unavailable ALBERT HUBBARD Consulting Unavailable DO Claus Obrien Emergency Provider Keven Kimbrough Consulting Unavailable Michael, Yazid Attending Unavailable Michael, Yazid Admitting Unavailable Hoy, Thomas M Primary Care Unavailable Jeramy Cunningham Attending Unavailable MarisaYiseled Sandra Admitting Unavailable Hoy, Thomas M Primary Care Unavailable Cristhian, Jaquan Shannon Primary Care Unavailable Tab Parkerothy Attending Unavailable Elena Gabino Admitting Unavailable Bullimore, Trace E Admitting Unavailable Cristhian, Jaquan Shannon Primary Care Unavailable Bullimore, Trace E Attending Unavailable Cristhian, Jaquan Shannon Primary Care Unavailable Keister, Claus A Attending Unavailable Keister, Claus A Admitting Unavailable Hoy, Thomas M Primary Care Unavailable KeisterClaus A Attending Unavailable Keister, Claus A Admitting Unavailable Shaan Sabillon Attending Unavailable Shaan Sabillon Admitting Unavailable Hoy, Thomas M Primary Care Unavailable CRISTHIAN, JAQUAN L Primary Care Unavailable DEACON KAT R Referring Unavailable GUTNICKDEACON Attending Unavailable CRISTHIAN, JAQUAN L Primary Care Unavailable THACKER RYLEE Referring Unavailable THACKER RYLEE Attending Unavailable HOY, THOMAS M Primary Care Unavailable BOOGIE MURGUIA Attending Unavailable HOY, THOMAS M Primary Care Unavailable VIC RAMOS Referring Unavailable VIC RAMOS Attending Unavailable CRISTHIAN, JAQUAN L Primary Care Unavailable KASIE AVALOS Attending Unavailable CRISTHIAN, JAQUAN L Primary Care Unavailable WALLY FOLEY Referring Unavailable BREANNA STERN Attending Unavailable SHANNA WOODS Attending Unavailable ROMIE HAIRSTON Admitting Unavailable CRISTHIAN, JAQUAN L Primary Care Unavailable CRISTHIAN, JAQUAN L Primary Care Unavailable BREANNA STERN Referring Unavailable CRISTHIAN, JAQUAN L Primary Care Unavailable THACKER, RYLEE Referring Unavailable THACKER, RYLEE Attending Unavailable HOY, THOMAS M Primary Care Unavailable ROUPHAEL, KASIE Referring Unavailable LEEANNBRITT HUDDLESTON Attending Unavailable HOY, THOMAS M Primary Care Unavailable ROUPHAEL, KASIE Referring Unavailable HOY, THOMAS M Primary Care Unavailable ROUPHAEL, KASIE Referring Unavailable CRISTHIAN, JAQUAN L Primary Care Unavailable DEACON KAT Attending Unavailable CRISTHIAN, JAQUAN L Primary Care Unavailable VIC RAMOS Attending Unavailable CRISTHIAN, JAQUAN L Primary Care Unavailable THACKER, RYLEE Referring Unavailable THACKER, RYLEE Attending Unavailable CRISTHIAN, JAQUAN L Primary Care Unavailable DEACON KAT Referring Unavailable JARREDBREANNA LESLIE Attending Unavailable KARINA العلي Attending Unavailable CRISTHIAN, JAQUAN L Primary Care Unavailable CRISTHIAN, JAQUAN L Primary Care Unavailable AGUSTIN ZAMORANO Attending Unavailable CRISTHIAN, JAQUAN L Primary Care Unavailable DEACON KAT Attending Unavailable SHANNA WOODS Attending Unavailable PRASEN DURANT Admitting Unavaila ble HOKatarina, THOMAS M Primary Care Unavailable CRISTHIAN, JAQUAN L Primary Care Unavailable VIC RAMOS Attending Unavailable CRISTHIAN, JAQUAN L Primary Care Unavailable SELF Referring Unavailable DEACON KAT Attending Unavailable CRISTHIAN, JAQUAN L Primary Care Unavailable THACKERRYLEE Attending Unavailable CRISTHIAN, JAQUAN L Primary Care Unavailable XIOMARA MARTINEZ Attending Unavailable CRISTHIAN, JAQUAN L Primary Care Unavailable MARCOS MORENO Referring Unavailable FRANCISCO J STEVE Attending Unavailable CRISTHIAN, JAQUAN L Primary Care Unavailable HOY, THOMAS M Primary Care Unavailable Allergies Allergy Classification Reported Allergen(s) Allergy Type Date of Onset Reaction(s) Facility NSAIDs (1 source) NSAIDs; Translations: [NSAIDS (NON-STEROIDAL ANTI-INFLAMMATOR Y DRUG)] Drug Allergy 01-30-20 [facility] Repository Opioid Agonists (8 sources) Codeine; Translations: [CODEINE] Drug Allergy 10-04-19 GI Upset [facility] Repository (5 sources) Codeine And Related Propensity to adverse reactions to drug 07-08-19 14 Other (See Comments), Nausea And Vomiting [facility] (20 sources) Codeine; Translations: [codeine] Drug Allergy 10-04-19 20 GI Upset, Nausea/vomitin g [facility] (3 sources) Propofol Drug Allergy 06-19-19 Other: See Comments [facility] (20 sources) Adhesive Tape-Silicones; Translations: [ADHESIVE TAPE-SILICONES] Drug Intolerance 02-07-20 20 Intolerance [facility] (2 sources) Morphine And Related Propensity to adverse reactions to drug 07-08-19 14 Other (See Comments), Nausea And Vomiting [facility] (7 sources) Codeine Drug Allergy vomiting [email or web address] [facility] [employer] Other (4 sources) Acetaminophen / oxyCODONE Drug Allergy anaphylaxis [facility] [employer] Other (20 sources) Non-steroidal anti-inflammator y agent; Translations: [NSAIDS (NON-STEROIDAL ANTI-INFLAMMATOR Y DRUG)] Propensity to adverse reactions to drug 01-30-20 [facility]ra[facility] on[facility], Nausea/vomitin g [facility] Work Phone: (1 source) Codeine Drug Allergy 07-08-19 14 [facility] Repository (1 source) Anastia Drug allergy (disorder) [facility] Repository (15 sources) Non-steroidal anti-inflammator y agent; Translations: [NSAIDs] Drug allergy Unknown (qualifier value) [facility] (2 sources) Acetaminophen; Translations: [acetaminophen] Drug Allergy 04-06-19 anaphylaxis [facility] (8 sources) oxyCODONE; Translations: [oxycodone] Drug Allergy 04-06-19 24 anaphylaxis [facility] (6 sources) NSAIDS (Non-Steroidal Anti-Inflamma; Translations: [NSAIDS (Non-Steroidal Anti-Inflamma] Propensity to adverse reactions 07-16-19 24 d/t surgery [facility] (1 source) Codeine Drug Allergy 08-21-19 24 [facility] Repository Medications Current Medications Medication Drug Class(es) Dates Sig (Normalized) Sig (Original) minipill Birthcontrol (2 sources) Start: 03-07-2018 minipill Birthcontrol minipill Birthcontrol, Daily Start Date: 03/07/18 Status: Ordered acetaminophen 325 mg / butalbital 50 mg / caffeine 40 mg oral tablet (10 sources) Barbiturate, Central Nervous System Stimulant, Methylxanthine [...] tab(s), Oral, BID, 30 tab(s), Refill(s) 0, [facility]pharmacy #[id number], 167.2, cm, 05/05/22 13:30:00 EDT, [...] Active Start: 03-08-2023 take 2 tablets by [facility] every four hours as needed [...] day(s), # 28 tab(s), Refills(s) 0, Pharmacy: [facility]/pharmacy #[id number], 168, cm, 06/17/22 10:54:00 EDT, [...] th five times daily for 7 days. 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 [id number] 200 actuat albuterol 0.09 mg/actuat metered dose [...] puff(s), Inhalation, q6hr, 18 gm, Refill(s) 3, [facility] #[id number], 167, cm, 05/17/23 14:25:00 EDT, Height/Length Dosing, 81, kg, 05/17/23 14:25:00 EDT, Weight Dosing Start Date: 05/31/23 Status: Ordered Start: 12-30-2022 take 2 puff(s) by in halation every six hours Albuterol (Eqv-Ventolin HFA) 90 mcg/inh inhalation aerosol 2 puff(s), Inhalation, q6hr, 18 gm, Refill(s) 0, [facility] #[id number], 168, cm, 12/29/22 15:01:00 EST, Height/Length [...] day(s), # 6 tab(s), Refills(s) 0, Pharmacy: [facility]/pharmacy #[id number], 168, cm, 12/29/22 15:01:00 EST, [...] on above: Take 2 tablets by mo [facility] three times a day as needed for [...] day(s), # 21 cap(s), Refills(s) 0, Pharmacy: [facility]/pharmacy #[id number], 168, cm, 12/29/22 15:01:00 EST, [...] 10 mg oral tablet (20 sources) Start: 02-13-2023 take 15 mg by mouth three times daily Buspirone Active 15 MG PO Three times daily February 13, 2023 1:00am Start: 02-13-2023 take 1 tablet by [facility] twice daily Buspirone (Buspar) 15 mg Tablet [...] day(s), # 20 tab(s), Refills(s) 0, Pharmacy: [facility]/pharmacy #[id number], 168, cm, 06/17/22 10:54:00 EDT, [...] day(s), # 28 tab(s), Refills(s) 0, Pharmacy: [facility]/pharmacy #[id number], 167, cm, 05/06/23 15:49:00 EDT, Height/Length Dosing, 82.7, kg, 05/06/23 15:49:00 EDT, Weight Dosing Start Date: 05/06/23 Stop Date: 05/13/23 Status: Ordered Start: 04-02-2023 take 2 capsules by m outh four times daily Bentyl 10 mg Cap 20 mg = 2 cap(s), Oral, QID, # 20 cap(s), Refills(s) 0, Pharmacy: [facility]/pharmacy #[id number], 167, cm, 04/02/23 11:01:00 EST, Height/Length Dosing, 82.7, kg, 04/02/23 11:01:00 EST, Weight Dosing Start Date: 04/02/23 Status: Ordered Start: 06-05-2022 End: 06-15-2022 take 1 capsule by mouth four times daily Bentyl 10 mg Cap 10 mg = 1 cap(s), Oral, QID, X 10 day(s), # 40 cap(s), Refills(s) 0, Pharmacy: [facility]/pharmacy #[id number], 167.2, cm, 05/05/22 13:30:00 EDT, Height/Length Dosing, 84.5, kg, 05/05/22 13:30:00 EDT, Weight Dosing Start Date: 06/05/22 Stop Date: 06/15/22 Status: Ordered Start: 12-20-2020 take 2 capsules by m outh four times daily Bentyl 10 mg Cap 20 mg = 2 cap(s), Oral, QID, # 20 cap(s), Refills(s) 0, Pharmacy: [facility]/pharmacy #[id number], 167, cm, 12/20/20 9:30:00 EDT, [...] Start: 06-09-2023 take 1 capsule by mo uth every twelve hours as needed docusate sodium [...] diarrhea doxycycline hyclate 100 mg oral capsule (15 sources) Tetracycline-class Drug Start: 08-23-2023 End: 08-30-2023 take 1 capsule by mouth once daily doxycycline hyclate (VIBRAMYCIN) 100 mg capsule Take 1 capsule (100 mg) by mouth once daily for 7 days. 7 capsule 0 08/23/2023 08/30/2023 Active Start: 07-06-2023 End: 07-11-2023 take 1 tablet by mouth twice daily doxycycline monohydrate 100 mg tablet Take 1 tablet by mouth two times a day for 5 days. 10 tablet 0 07/06/2023 07/11/2023 Active Start: 05-29-2022 take 1 capsule by mo uth twice daily doxycycline hyclate 100 mg Cap 100 mg = 1 cap(s), Oral, BID, # 20 cap(s), Refills(s) 0, Pharmacy: [facility]/pharmacy #[id number], 167.2, cm, 05/05/22 13:30:00 EDT, [...] Ordered Start: 10-14-2019 take 1 capsule by [facility] every twelve hours DULoxetine HCl 60 MG 1 capsule Orally Twice a day for 90 days Sep, Active take 1 capsule by [facility] twice daily DULoxetine (CYMBALTA) 30 [...] tablet (20 sources) Serotonin Reuptake Inhibitor Start: 07-15-2023 take 1 tablet by mouth once daily escitalopram oxalate (LEXAPRO) 20 mg tablet Indications: Generalized anxiety disorder , Major depressive disorder, recurrent episode, moderate (HCC) Take 1 tablet by mouth once daily. 90 tablet 1 07/15/2023 Active Start: 09-16-2022 End: 04-11-2023 take 20 mg by mouth once daily Escitalopram Oxalate Ac tive 20 MG PO Daily February 13, 2023 1:00am Start: 05-05-2022 End: 09-12-2022 take 1 tablet [...] Active Start: 12-17-2021 [facility] escitalopram oxalate (LEXAPRO) 10 mg [...] daily. ferrous sulfate 325 mg oral tablet (20 sources) Start: 03-06-2023 take 1 tablet by mouth once daily at breakfast 1 tablet, oral, Daily with breakfast, First dose on Heean 24 at 0800 take 1 tablet by mouth [...] Start: 01-20-2021 take 1 capsule by [facility] once daily, then take 1 capsule by mouth twice daily, then take 1 capsule by mouth three times daily gabapentin 300 mg Cap See Instructions, 1 cap(s) Oral daily x 1 day, 1 tab BID x 1 day, then 1 tab TID thereafter., # 90 cap(s), Refills(s) 0, Pharmacy: [facility]/pharmacy #[id number], 167, cm, 01/16/21 13:32:00 EST, [...] 25 mg tablet Indications: Generalized anxiety disorder TAKE 1 TABLET BY MOUTH TWICE A DAY NEEDED FOR ANXIETY 180 tablet 1 08/16/2023 Active Start: 11-13-2022 take 1 tablet by [...] Units Ketamine (20 sources) General Anesthetic Start: 08-25-2023 End: 08-17-2024 ketamine 5% nasal spray solution (CPD) Indications: Gastroesophageal reflux disease without esophagitis , Neuralgia and neuritis , Median arcuate ligament syndrome (HCC) , Chronic abdominal pain , S/P gastric bypass 0.1 mL/spray. Use as directed. Apply 2 sprays by nose twice per day if tolerated. Added volume to account for dispenser loss. Physician office visit required for subsequent refills. 12 mL 2 08/25/2023 08/17/2024 Active Start: 08-05-2023 End: 08-25-2023 ketamine 5% nasal spray solu tion (CPD) [...] required for refill. 12 mL 0 08/05/2023 08/25/2023 Discontinued Start: 08-05-2023 End: 07-28-2024 ketamine 5% nasal spray solu tion (CPD) [...] Daily, # 60 tab(s), Refills(s) 1, Pharmacy: [facility]/pharmacy #[id number], 167, cm, 04/02/23 11:01:00 EST, Height/Length Dosing, 82.7, kg, 04/02/23 11:01:00 EST, Weight Dosing Start Date: 05/03/23 Status: Ordered Start: 03-03-2023 take 1 tablet by [facility] once daily levothyroxine 100 mcg (0.1 mg) Tab 100 mcg = 1 tab(s), Oral, Daily, # 90 tab(s), Refills(s) 0, Pharmacy: [facility], 168, cm, 02/03/23 14:52:00 EST, Height/Length Dosing, 85.5, kg, 02/03/23 14:52:00 EST, Weight Dosing Start Date: 03/03/23 Status: Ordered Start: 10-05-2022 take 1 tablet by [facility] once daily levothyroxine 100 mcg (0.1 mg) Tab 100 mcg = 1 tab(s), Oral, Daily, # 30 tab(s), Refills(s) 1, Pharmacy: [facility]/pharmacy #[id number], 168, cm, 07/29/22 8:44:00 EDT, Height/Length Dosing, 81, kg, 07/29/22 8:44:00 EDT, Weight Dosing Start Date: 10/05/22 Status: Ordered Start: 07-22-2022 take 1 tablet by [facility] once daily levothyroxine 125 mcg (0.125 mg) Tab See Instructions, TAKE 1 TABLET BY MOUTH EVERY DAY, # 30 tab(s), Refills(s) 2, Pharmacy: [id number], 168, cm, 07/20/22 10:48:00 EDT, Height/Length Dosing, 81.1, kg, 07/20/22 10:48:00 EDT, Weight Dosing Start Date: 07/22/22 Status: Ordered Start: 04-23-2022 take 1 tablet by [facility] once daily levothyroxine 125 mcg (0.125 mg) Tab 125 mcg = 1 tab(s), Oral, Daily, # 90 tab(s), Refills(s) 0, Pharmacy: [facility]/pharmacy #[id number], 167.6, cm, 04/15/21 22:31:00 EST, [...] on above: Take 1 capsule by [facility] DAILY (6 AM). Take 1 capsule by [facility] daily at 6 am. liothyronine sodium 0.005 mg oral tablet (20 sources) l-Triiodothyronin e Start: 03-03-2023 take 1 tablet by mouth once daily liothyronine 5 mcg Tab 5 mcg, Oral, Daily, # 90 tab(s), Refills(s) 3, Pharmacy: [facility], 168, cm, 02/03/23 14:52:00 EST, Height/Length Dosing, 85.5, kg, 02/03/23 14:52:00 EST, Weight Dosing Start Date: 03/03/23 Status: Ordered Start: 11-25-2022 take 1 tablet by robinson once daily liothyronine 5 mcg Tab 5 mcg, Oral, Daily, # 90 tab(s), Refills(s) 3, Pharmacy: [facility]/pharmacy #[id number], 168, cm, 11/25/22 11:03:00 EDT, Height/Length Dosing, 82.5, kg, 11/25/22 11:03:00 EDT, Weight Dosing Start Date: 11/25/22 Status: Ordered Start: 05-21-2022 take 1 tablet by robinson once daily liothyronine 5 mcg Tab 5 mcg, Oral, Daily, # 90 tab(s), Refills(s) 1, Pharmacy: [facility]/pharmacy #[id number], 167.2, cm, 05/05/22 13:30:00 EDT, Height/Length Dosing, 84.5, kg, 05/05/22 13:30:00 EDT, Weight Dosing Start Date: 05/21/22 Status: Ordered Start: 09-11-2019 take 1 tablet by robinson th once daily liothyronine (CYTOMEL) 5 mcg tablet Take 5 mcg by mouth once daily. 0 09/11/2019 Active take 1 tablet by robinson every twenty-four [...] dizziness, # 30 tab(s), Refills(s) 0, Pharmacy: [facility]/pharmacy #[id number], 168, cm, 06/10/22 10:57:00 EDT, Height/Length Dosing, 83.7, kg, 06/10/22 10:57:00 EDT, Weight Dosing Start Date: 06/10/22 Status: Ordered metFORMIN hydrochloride 1000 mg oral tablet (6 sources) Biguanide Start: 03-04-2018 take 1000 mg by mouth twice daily metformin 1,000 mg, Oral, BID, Refills(s) 0, Blood glucose Start Date: 03/04/18 Status: Ordered take 2 tablets by [facility] twice daily at mealtime metformin 500 MG [...] labeling, # 21 tab(s), Refills(s) 0, Pharmacy: [facility]/pharmacy #[id number], 167, cm, 04/02/23 11:01:00 EST, [...] day(s), # 30 tab(s), Refills(s) 0, Pharmacy: [facility]/pharmacy #[id number], 168, cm, 06/17/22 10:54:00 EDT, Height/Length Dosing, 83.1, kg, 06/17/22 10:54:00 EDT, Weight Dosing Start Date: 06/17/22 Stop Date: 06/27/22 Status: Ordered midodrine hydrochloride 5 mg oral tablet (10 sources) alpha-Adrenergic Agonist Start: 08-06-2023 take 1 [...] mirabegron 25 mg extended release oral tablet (19 sources) beta3-Adrenergic Agonist Start: 07-06-2023 take 1 [...] 1:00am Start: 11-10-2022 take 2 tablets by [facility] once daily at bedtime mirtazapine (Remeron) [...] TABLET BY ROBINSON TH DAILY AT BEDTIME [facility] Prescription (1 source) Start: 06-11-19 [facility] Prescription Start Date: 06/11/23 Status: Ordered 1 [...] 0 Start Date: 05/05/22 Status: Ordered Naltrexone (15 sources) Opioid Antagonist Start: 08-25-2023 naltrexone 1 .5 mg capsule (CPD) Indications: Gastroesophageal reflux disease without esophagitis , Neuralgia and neuritis , Median arcuate ligament syndrome (HCC) , Chronic abdominal pain , S/P gastric bypass Take 1 capsule daily at 9 pm. May increase to 2 capsules if no relief after 2 weeks. Do not use calcium as a bottle filler preparation. If insomnia or vivid dreams occur, then would take capsule at 9 am. 60 capsule 11 08/25/2023 Active Start: 08-04-2023 End: 08-25-2023 naltrexone 1.5 mg capsule (C PD) Indications: Gastroesophageal reflux disease without esophagitis , Neuralgia and neuritis , Median arcuate ligament syndrome (HCC) , Chronic abdominal pain , S/P gastric bypass Take 1 capsule daily at 9 pm. May increase to 2 capsules if no relief after 2 weeks. Do not use calcium as a bottle filler preparation. If insomnia or vivid dreams occur, then would take capsule at 9 am. 60 capsule 1 08/04/2023 08/25/2023 Discontinued Start: 08-04-2023 naltrexone 1.5 mg capsule (CPD) Indications: Gastroesophageal reflux disease without esophagitis , Neuralgia and neuritis , Median arcuate ligament syndrome (HCC) , Chronic abdominal pain , S/P gastric bypass Take 1 capsule daily at 9 pm. May increase to 2 capsules if no relief after 2 weeks. Do not use calcium as a bottle filler preparation. If insomnia or vivid dreams [...] weeks. Do not use calcium as a bottle filler preparation. If insomnia or vivid dreams [...] Run for 18 hours, off 6 hours. 73875 mL 3 05/29/2023 06/09/2023 Discontinued Start: 05-29-2023 End: 08-27-2023 nutritional supplements (NUT PIPO 2.0) 0.08 gram-2 kcal/mL liqd 45 mL/hr by FEEDING TUBE route once daily. Run for 18 hours, off 6 hours. 88047 mL 3 05/29/2023 08/27/2023 Active Start: 05-28-2023 End: 08-26-2023 nutritional supplements (NUT PIPO 2.0) 0.08 gram-2 kcal/mL liqd 45 mL/hr by FEEDING TUBE route once daily. Run for 18 hours, off 6 hours. 79197 mL 3 05/28/2023 08/26/2023 Active Comment on above: 45 mL/hr by FEEDING TUBE route once daily. Run for 18 hours, off 6 hours. nystatin 085367 unt/ml oral suspension (1 source) Polyene Antifungal Start: 06-09-2023 End: 06-15-2023 take 5 mL by mouth four times daily nystatin (MYCOSTATIN) 100,000 units/mL oral liquid Take 5 mL by mouth four times daily for 23 doses. Swish and swallow. 115 mL 0 06/09/2023 06/15/2023 Active omeprazole 40 mg delayed release oral capsule (20 sources) Proton Pump Inhibitor Start: 09-02-2023 End: 12-01-2023 take 1 capsule by mouth twice daily omeprazole (PRILOSEC) 40 mg capsule Take 1 capsule by mouth two times a day. 60 capsule 2 09/02/2023 12/01/2023 Active Start: 11-02-2022 End: 12-08-2022 omeprazole (PRILOSEC) 40 [...] Start: 10-19-2022 take 1 capsule by [facility] once daily omeprazole (PRILOSEC) 20 mg capsule [...] TAKE 1 CAPSULE BY MO UTH NEEDED ondansetron 8 mg disintegrating oral tablet (20 [...] q6hr, # 12 tab(s), Refills(s) 0, Pharmacy: [facility]/pharmacy #[id number], 168, cm, 06/07/22 10:23:00 EDT, [...] pain, # 12 cap(s), Refills(s) 0, [id number], cm, 05/12/23 9:37:00 EDT, Height/Length Dosing, 79.8, kg, 05/12/23 9:37:00 EDT, Weight Dosing Start Date: 05/14/23 Status: Ordered Start: 05-09-2023 End: 05-12-2023 take 1 tablet by mouth every six hours oxyCODONE 5 mg Tab 5 mg = 1 tab(s), Oral, q6hr, X 3 day(s), # 10 tab(s), Refills(s) 0, [id number] 167, cm, 05/09/23 11:51:00 EDT, Height/Length [...] up to 5 doses. polyethylene glycol 3350 05832 mg powder for oral solution (20 sources) Osmotic Laxative Start: 06-23-2022 End: 09-07-2023 polyethylene glycol 3350 (MIRALAX) 17 gram/dose powder Take 17 g by mouth once daily as needed for constipation. 0 06/09/2023 09/07/2023 Active Start: 06-23-2022 Polyethylene G lycol 3350 (Miralax) 17 gram/dose [...] 4.5 mg/ml injection (1 source) Start: 03-07-19 24 sodium chloride 0.45 % with KCl 20 mEq/L infusion predniSONE 20 mg oral tablet (1 source) Start: 11-01-19 End: 11-06-19 23 take 2 tablets by mouth once daily predniSONE (DELTASONE) 20 MG tablet Take 2 tablets by mouth daily for 5 days 10 tablet 0 10/31/2022 11/05/2022 Active ProFe (4 sources) Start: 03-04-19 19 take 180 mg by mouth once daily ProFe 180 mg, Oral, Daily, Refills(s) 0, Prophylaxis Start Date: 03/04/18 Status: Ordered promethazine hydrochloride 25 mg rectal suppository (20 sources) Phenothiazine Start: 04-06-19 take 25 mg rectal route every six hours as needed for nausea Phenergan 25 mg Supp 25 mg = 1 supp, Rectal, q6hr, PRN Nausea/Vomiting, # 6 EA, Refills(s) 0, Pharmacy: [facility]/pharmacy #[id number], 167, cm, 05/06/23 15:49:00 EDT, [...] TID, # 15 tab(s), Refills(s) 0, [id number] 168, cm, 10/20/22 8:21:00 EDT, Height/Length Dosing, 85.6, kg, 10/20/22 8:21:00 EDT, Weight Dosing Start Date: 10/20/22 Status: Ordered Start: 06-10-2022 take 1 tablet by robinson th every four hours promethazine 12.5 mg oral tablet 12.5 mg = 1 tab(s), Oral, q4hr, # 60 tab(s), Refills(s) 0, Pharmacy: [facility]/pharmacy #[id number], 168, cm, 06/10/22 12:37:00 EDT, Height/Length Dosing, 83.7, kg, 06/10/22 12:37:00 EDT, Weight Dosing Start Date: 06/10/22 Status: Ordered Start: 12-20-2020 take 1 tablet by robinson th every six hours as needed for nausea promethazine 25 mg Tab 25 mg = 1 tab(s), Oral, q6hr, PRN as needed for nausea/vomiting, # 12 tab(s), Refills(s) 0, Pharmacy: [facility]/pharmacy #[id number], 167, cm, 12/20/20 9:30:00 EDT, [...] Nausea, # 20 tab(s), Refills(s) 0, Pharmacy: [facility]/pharmacy #[id number], 167, cm, 05/12/23 9:37:00 EDT, Height/Length Dosing, 79.8, kg, 05/12/23 9:37:00 EDT, Weight Dosing Start Date: 05/14/23 Status: Ordered Start: 04-02-2023 End: 04-16-2023 sucralfate 1 g/10 mL Oral Nance sp 10 mL 1 gm = 10 mL, Oral, QIDACHS, X 14 day(s), # 560 mL, Refills(s) 0, Pharmacy: [facility]/pharmacy #[id number], 167, cm, 04/02/23 11:01:00 EST, [...] QID, # 280 mL, Refills(s) 0, Pharmacy: [facility]/pharmacy #[id number], 168, cm, 10/19/22 8:44:00 EDT, [...] Daily, # 10 cap(s), Refills(s) 0, Pharmacy: [facility]/pharmacy #[id number], 168, cm, 06/17/22 10:54:00 EDT, [...] Nausea/Vomiting, # 12 tab(s), Refills(s) 0, Pharmacy: [facility]/pharmacy #[id number], 167, cm, 05/06/23 15:49:00 EDT, [...] robinson every 6 hours as needed for pain. Take 2 tablets by mo uth every 6 hours as needed for headache for up to 7 days. Take 2 tablets by mo uth every 6 hours as needed for pain or fever (specify). acetaminophen 325 mg / HYDROcodone bitartrate 5 mg oral tablet (15 sources) Opioid Agonist Start: 08-06-2023 End: 08-09-2023 [...] 08-30-2021 bupivacaine-EPINEP Hrine PF (MARCAINE-w/EPINEP HRINE) 0.5% -1:[id number] injection 10 mL calcium chloride 0.001 meq/ml [...] Refill(s) 0, Take 1 puff 2x daily., [facility] #[id number], 168, cm, 12/29/22 15:01:00 EST, [...] End: 03-06-2023 magnesium sulfate IV 2 g Meperidine (2 sources) Opioid Agonist Start: 08-26-2023 End: 08-26-2023 meperidine (PF) injection (DEMEROL) Start: 08-26-2023 End: 08-26-2023 meperidine (PF) injection (D EMEROL) 5 ml midazolam 1 mg/ml injection (1 source) Benzodiazepine Start: 08-26-2023 End: 08-26-2023 midazolam (PF) injection (VERSED) multivitamin tablet (20 sources) End: 12-08-2022 take [...] kcal/mL liqd TF for PEG-J Rate: 45cc/hr 73239 mL 1 05/26/2023 06/09/2023 Discontinued Start: 05-26-2023 nutritional nance pplements (NUTREN 1.5) 0.07 gram-1.5 kcal/mL liqd TF for PEG-J Rate: 45cc/hr 42935 mL 1 05/26/2023 Active Start: 05-21-2023 End: [...] route continuous. TF for PEG-J Rate: 45cc/hr oxygen (O2) therapy (1 source) Start: 03-05-2023 [...] Active Start: 05-14-2023 take 1 tablet by robinson once daily Pantoprazole [address] Tab 40 mg = 1 tab(s), Oral, Daily, # 30 tab(s), Refills(s) 0, Pharmacy: [facility]/pharmacy #[id number], 167, cm, 05/12/23 9:37:00 EDT, [...] Start: 03-20-2023 take 1 tablet by robinson once daily before mealtime pantoprazole (ProtoNix) 40 mg EC tablet Indications: Nausea and vomiting, unspecified vomiting type Take 1 tablet (40 mg) by mouth once daily in the morning. Take before meals. Do not crush, chew, or split. 30 tablet 2 03/20/2023 Active Start: 03-17-2023 pantoprazole ( ProtoNix) injection 40 mg Start: 01-16-2021 take 1 tablet by robinson twice daily Protonix 40 mg Tab-DR 40 mg = 1 tab(s), Oral, BID, # 30 tab(s), Refills(s) 0 Start Date: 01/16/21 Status: Ordered End: 09-02-2023 take 40 mg by mouth once daily before breakfast pantoprazole (PROTONIX) 40 mg grps Take 40 mg by mouth daily before breakfast. 0 09/02/2023 Discontinued Comment on above: Take 40 mg by [...] Start: 06-18-2023 take 1 tablet by robinson every six hours as needed prochlorperazine (COMPAZINE) [...] Three times daily 15 April 10, 2020 1:00am February 13, 2023 2:59pm Comment on above: Take 2 tablets by mo uth every 6 hours as needed. Take 1 tablet by robinson every 6 hours for 14 days. promethazine (Phenergan) 6.25 mg in sodium chloride 0.9% 50 mL IV (1 source) Start: 03-05-2023 End: 03-05-2023 promethazine (Phenergan) 6.25 mg in sodium chloride 0.9% 50 mL IV sennosides, mcc 8.6 mg oral tablet (10 sources) Start: [...] on above: Take 2 tablets by [facility] four times daily as needed. solifenacin succinate [...] Active Start: 11-16-2022 take 1 tablet by [facility] every eight hours as needed for [...] pain, # 30 tab(s), Refills(s) 0, Pharmacy: [facility]/pharmacy #[id number], 168, cm, 06/26/22 14:12:00 EDT, [...] (4 sources) Corticosteroid Start: 07-29-19 End: 08-04-19 24 triamcinolone acetonide (KENALOG) 0.1 % ointment Apply [...] Acute and unspecified renal failure (3 sources) Qjwkx-ss-[id number] renal failure; Translations: [Acute kidney failure, unspecified] Onset: 4 06-29-2023 Episodic Anxiety disorders (20 sources) Posttraumatic stress disorder; Translations: [Reaction to severe stress, unspecified] Onset: 0 11-21-2019 Chronic Anxiety disorders (20 sources) Panic disorder without agoraphobia; Translations: [Panic disorder [episodic paroxysmal anxiety]] Onset: 0 Resolved: 2 04-08-2020 Chronic Aspiration pneumonitis; food/vomitus (14 sources) Pneumonitis due to inhalation of vomitus; [...] Translations: [Postsurgical malabsorption, not elsewhere classified] Chronic Congestive heart failure; nonhypertensive (3 sources) Heart [...] migrainosus] Onset: 4 Chronic Headache; including migraine (8 sources) Headache; Translations: [Headache] 01-27-2023 Episodic Inflammation; [...] controlled] Onset: 0 Resolved: 4 01-03-2020 Chronic Nonspecific chest pain (2 sources) Chest pain; Translations: [Chest pain, unspecified] Onset: 3 Episodic Nutritional deficiencies (20 sources) Deficiency of macronutrients; Translations: [Mild protein-calorie malnutrition] Onset: 1 04-08-2020 Chronic Nutritional deficiencies (1 source) Dietary zinc deficiency; Translations: [Dietary zinc deficiency] 04-07-2023 Episodic Osteoarthritis (20 sources) Degenerative joint disease involving multiple joints; Translations: [Polyosteoarthritis, unspecified] Onset: 4 Chronic Other aftercare (1 source) Other local [employer] (current) 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; Translations: [OTH ORIENTAL RUG STRETCHER CURRENT DRUG THERAPY] Onset: 3 Episodic Other [...] (HCC)] Onset: 3 Chronic Other circulatory disease (10 sources) Idiopathic hypotension; Translations: [Idiopathic hypotension] Onset: 4 08-06-2023 Episodic Other connective tissue disease (8 sources) Neuropathy; Translations: [Neuralgia and neuritis, unspecified] [...] malabsorption, unspecified] 09-18-2022 Chronic Other gastrointestinal disorders (20 sources) Jejunostomy present; Translations: [Other artificial openings of gastrointestinal tract status] Onset: 4 06-07-2023 Chronic Other gastrointestinal disorders (20 sources) Gastrostomy present; Translations: [Gastrostomy status] Onset: 4 06-07-2023 Chronic Other gastrointestinal disorders (2 sources) Other artificial openings of gastrointestinal tract status; Translations: [Jejunostomy tube present (HCC)] Onset: 4 Chronic Other gastrointestinal disorders (1 source) Intestinal malabsorption, unspecified; Translations: [Impaired intestinal absorption] Onset: 3 Chronic Other gastrointestinal disorders (3 sources) Esophageal dysphagia; Translations: [Other dysphagia] Episodic Other gastrointestinal disorders (6 sources) Diarrhea, [...] - overweight; Translations: [Overweight] 09-28-2022 Episodic Other skin disorders (4 sources) Hirsutism; Translations: [Hirsutism] Episodic Other upper respiratory disease (18 sources) Allergic rhinitis 04-22-2022 Chronic Other upper respiratory infections (5 sources) Other chronic sinusitis; Translations: [Chronic sinusitis, unspecified] Onset: 2 Chronic Otitis media and related conditions (9 sources) Otitis media of left ear 02-03-2023 Episodic Pneumonia (except that caused by tuberculosis or sexually transmitted disease) (12 sources) Pneumonia, unspecified organism; Translations: [Community acquired [...] damage to nail, initial encounter] Episodic Syncope (16 sources) Syncope and collapse; Translations: [Syncope and [...] [Calculus of kidney] Onset: 06-24-2022 06-24-2022 Episodic Conditions associated with dizziness or vertigo (20 sources) Vertigo; Translations: [Dizziness and giddiness] Onset: 10-06-2019 10-06-2019 Episodic Deficiency and other anemia (17 sources) Iron deficiency anemia; Translations: [Iron deficiency [...] SCREEN INFECTIONS SEXL TRANSMS] Onset: 07-30-2021 Episodic Intestinal obstruction without hernia (20 sources) Small bowel obstruction; Translations: [Unspecified intestinal obstruction, unspecified as to partial versus complete obstruction] Onset: 07-17-2023 Resolved: 07-20-2023 07-16-2023 Episodic Malaise and fatigue (20 sources) Malaise and fatigue; Translations: [Other malaise] Onset: 10-06-2019 10-06-2019 Episodic Nausea and vomiting (20 sources) Nausea; Translations: [Nausea] Onset: 09-25-2019 Resolved: 08-08-2023 09-25-2019 Episodic Other connective tissue disease (1 source) [...] 10-26-2022 Episodic Other gastrointestinal disorders (20 sources) History of bypass of stomach; Translations: [Bariatric surgery status] Onset: 10-26-2022 Resolved: 08-08-2023 Episodic Other gastrointestinal disorders (13 sources) Bariatric surgery status; Translations: [Bariatric surgery status] Onset: 06-11-2022 07-17-2023 Episodic Other gastrointestinal disorders (20 sources) Constipation; [...] signs concerning food and fluid intake] Onset: 05-25-2023 05-25-2023 Episodic Other nutritional; endocrine; and metabolic disorders [...] Name Value Interpretation Reference Range Facil ity CNNURSEon 08-30-2023 CNNURSE Normal [facility] CNNURSEon 08-26-2023 CNNURSE Normal [facility] EGD Study observation Narrat nickefaiza 08-26-2023 A31 Gastrointestinal Endoscopy Patient Name: Abbey Garcia Procedure Date: 08/26/2023 3:47 PM Date of : 1990 Admit Type: Outpatient Age: 33 Room: [place] [address] Gender: Female Note Status: Finalized Attending MD: Britt Cross MD, [id number] Procedure: Small bowel enteroscopy Indications: Heartburn Providers: Britt Cross MD Referring Physician: Kasie Avalos MD (Referring MD) Medicines: Meperidine 75 mg IV, Midazolam 4 mg IV, Benzocaine spray Complications: No immediate complications. Requesting Provider: Procedure: After obtaining informed consent, the endoscope was passed under direct vision. Throughout the procedure, the patient's blood pressure, pulse, and oxygen saturations were monitored continuously. The Endoscope was introduced through the mouth, and advanced to the jejunum 15 cm pas the anastomosis.. The upper GI endoscopy was accomplished without difficulty. The patient tolerated the procedure well. Moderate Sedation: The administration of moderate sedation was initiated at 15:58 PM. Moderate (conscious) sedation was administered by the nurse and supervised by the endoscopist. The patient's oxygen saturation, heart rate, blood pressure and response to care were monitored. Findings: LA Grade B (one or more mucosal breaks greater than 5 mm, not extending between the tops of two mucosal folds) esophagitis with no bleeding was found 36 to 37 cm from the incisors. The HUERTA capsule was activated and then [...] capsule to be in an appropriate position. A few erosions with no stigmata of recent bleeding were found in the stomach. 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 A gastric pouch with a normal size was found. The gastrojejunal anastomosis was characterized by healthy appearing mucosa. The euonawqg-wq-mbmzmlx limb was examined. The examined jejunum was normal. Impression: - LA Grade B erosive esophagitis with no bleeding. - Gastric erosions with no stigmata of recent bleeding. - Gastric bypass with a normal-sized pouch. Gastrojejunal anastomosis characterized by healthy appearing mucosa. - Normal examined jejunum. - The HUERTA capsule was activated and then calibrated by submersion into the appropriate buffer solutions. - The HUERTA pH capsule was deployed. - No specimens collected. Estimated Blood Loss: Estimated blood loss: none. Procedure Code(s): --- Professional --- 48974, Esophagogastroduode noscopy, flexible, transoral; diagnostic, including collection of specimen(s) by brushing or washing, when performed (separate procedure) CPT copyright 2020 [employer]. All rights reserved. The codes documented in this report are preliminary and upon supply person review may be revised to meet current compliance requirements. Attending Participation: I personally performed the entire procedure. I was present and participated during the entire procedure, including non-paula portions, and during the administration and monitoring of Moderate Sedation. Scope In: 4:00:27 PM Scope Out: 4:05:48 PM MD Britt Cano MD 08/26/2023 4:08:47 PM This report has been signed electronically by Britt Cross MD Number of Addenda: 0 Note Initiated On: 08/26/2023 3:47 PM PROVATION [facility] Radiology Study observation (narrative) [facility] NURSING PROGon 08-26-2023 NURSING PROG Normal [facility] NURSING PROG Normal [facility] NURSING PROG Normal [facility] NURSING PROG Normal [facility] Small bowel enteroscopyon Small bowel enteroscopy Normal [facility] CNPNon 08-23-2023 CNPN Normal [facility] Activated partial thrombopla stin time (aPTT) in platelet poor plasma by coagulation aOrdered By: Claus Obrien on 08-21-2023 aPTT Coag (PPP) [Time] 28.4 s 25.1-36.5 [facility] Comment on above: A hematocrit value g reater than 55% may lead to inaccurate results in coagulation testing. Patients having hematocrit values >55% require a special collection tube for coagulation studies. Please contact the laboratory at [phone] for redraw instructions. Alanine aminotransferase [En zymatic activity/volume] in Serum or PlasmaOrdered By: Claus Obrien on 08-21-2023 ALT [Catalytic activity/Vol] 22 U/L Normal 7-52 [facility] Comment on above: Performed By: #### A CORY, [facility] [place] [place] #### [facility] [address] [place] [address] [place] Albumin [Mass/volume] in Ser um or Plasma by Bromocresol green (BCG) dye binding methoOrdered By: Claus Obrien on 08-21-2023 Albumin BCG dye [Mass/Vol] 3.9 g/dL 3.5-5.7 [facility] Alkaline phosphatase [Enzyma tic activity/volume] in Serum or PlasmaOrdered By: Claus Obrien on 08-21-2023 ALP [Catalytic activity/Vol] 51 U/L Normal 34-104 [facility] Comment on above: Performed By: #### A [facility], [facility] #### [facility] [address] [place] [address] [place] Aspartate aminotransferase [ Enzymatic activity/volume] in Serum or PlasmaOrdered By: Claus Obrien on 08-21-2023 AST [Catalytic activity/Vol] 35 U/L Normal 13-39 [facility] Comment on above: Performed By: #### A CORY, CG, JERONIMOU #### [address] Automated basophil %Ordered By: Claus Obrien on 08-21-2023 Basophils/100 WBC (Bld) 1.0 % Normal . [facility] Comment on above: Performed By: #### H EPATIC, MG, LIPASE, CMP, CBC #### [address] Automated basophil countOrde red By: Claus Obrien on 08-21-2023 Basophils (Bld) [#/Vol] 0.0 10*3/uL Normal 0.0-0.2 [facility] Comment on above: Result Comment: PERF ORMED BY: [place] [address] PATHOLOGIST AUTO WINDER BAUTISTA BAKER M.D. Performed By: #### H EPATIC, MG, LIPASE, CMP, CBC #### [address] Automated blood monocyte cou ntOrdered By: Claus Obrien on 08-21-2023 Monocytes (Bld) [#/Vol] 0.3 10*3/uL Normal 0.0-0.8 [facility] Comment on above: Performed By: #### H EPATIC, MG, LIPASE, CMP, CBC #### [address] Automated eosinophil %Ordere d By: Claus Obrien on 08-21-2023 Eosinophils/100 WBC (Bld) 2.4 % Normal . [facility] Comment on above: Performed By: #### H EPATIC, MG, LIPASE, CMP, CBC #### [address] Automated eosinophil countOr dered By: Claus Obrien on 08-21-2023 Eosinophils (Bld) [#/Vol] 0.1 10*3/uL Normal 0.0-0.45 [facility] Comment on above: Performed By: #### H EPATIC, MG, LIPASE, CMP, CBC #### [address] Automated monocyte %Ordered By: Claus Obrien on 08-21-2023 Monocytes/100 WBC (Bld) 8.4 % Normal . [facility] Comment on above: Performed By: #### H EPATIC, MG, LIPASE, CMP, CBC #### [address] Automated neutrophil %Ordere d By: Claus Obrien on 08-21-2023 Neutrophils/100 WBC (Bld) 58.0 % Normal . [facility] Comment on above: Performed By: #### H EPATIC, MG, LIPASE, CMP, CBC #### [address] Basic Metabolic Panelon Creatinine Clr Calc Pharmacy 115.16 Normal [facility] Comment on above: Performed By: #### A DDONUAPLUS, UHCG, CUU #### [address] GFR/1.73 sq M.predicted MDRD (S/P/Bld) [Vol rate/Area] mL/min/{1.73_m2} Normal [facility] Comment on above: Performed By: #### A DDONUAPLUS, UHCG, CUU #### [address] Bilirubin Test strip Ql (U)O rdered By: Claus Obrien on 08-21-2023 Bilirubin Ql (U) Negative Negative [facility] Bilirubin.direct [Mass/volum e] in Serum or PlasmaOrdered By: Claus Obrien on 08-21-2023 Bilirubin.direct [Mass/Vol] 0.10 mg/dL 0.03-0.18 [facility] Bilirubin.total [Mass/volume ] in Serum or PlasmaOrdered By: Claus Obrien on 08-21-2023 Bilirubin [Mass/Vol] 0.3 mg/dL Normal 0.3-1.0 [facility] Comment on above: Performed By: #### A CORY, [facility] [place] #### [facility] [address] abdomen pelvis w conon CT abdomen pelvis w con [facility] [place] [address] [place] [address] CT Scan Report Signed Patient: Abbey Garcia MR#: [id number] : 1990 Acct:[id number] Age/Sex: 33 / F ADM Date: 08/21/23 Loc: ER Room: Type: [facility] ER Attending Dr: Copies to: Claus Obrien DO Ordering Provider: Claus Obrien DO Date of Service: 08/21/23 CT/CT abdomen pelvis w con: abd pain CT ABDOMEN AND PELVIS WITH CONTRAST COMPARISON: 08/14/2023 CLINICAL DATA: Abdominal pain, nausea and leaking around J-tube. Spiral images were obtained through the abdomen and pelvis following 90 mL of Isovue-300. This CT exam was performed using one or more following dose reduction techniques: Automated exposure control, adjustment of the mA and/or kV according to patient size, or use of iterative reconstruction technique. Limited cuts through the lung bases show linear atelectasis or scarring on the left. There are multiple scattered hepatic hypodensities measuring up to 2 cm in size with the appearance of cysts. The gallbladder surgically absent. There is mild biliary prominence, without common duct stones. The spleen, pancreas and adrenal glands show no acute findings. There are symmetric renal nephrograms, without hydronephrosis. The abdominal aorta is normal caliber. There are no enlarged lymph nodes or ascites. There is previous bariatric surgery. There is a J-tube at the left upper quadrant. There are no surrounding fluid collections. There is no dilated small bowel. There is air and mild stool along the colon. The bony structures are intact. Images through the pelvis show no dilated small bowel. There is air, fluid and stool at the distal colon. No diverticular disease is noted. The uterus and appendix are surgically absent. A dominant left ovarian follicle is again seen. There is a trace amount of dependent free pelvic fluid. The urinary bladder is not well-distended however no obvious abnormalities are seen. CT/CT abdomen pelvis w con IMPRESSION: CONTINUED LEFT BASILAR ATELECTASIS AND/OR SCARRING. HEPATIC CYSTS. MILD BILIARY PROMINENCE THAT PROBABLY RELATES TO PREVIOUS CHOLECYSTECTOMY. NO BOWEL OR URINARY TRACT OBSTRUCTION. NO ACUTE FINDINGS OR SIGNIFICANT CHANGE. Impression dictated by: Maricruz Hutchinson M.D.08/21/2023 12:03 PM Dictation Location: [place] [address] Transcribed By: SULEMA 08/21/23 1203 Dictated By: Maricruz Hutchinson MD 08/21/23 1157 Signed By: 08/21/23 1203 Normal [facility] Calcium [Mass/volume] in Ser um or PlasmaOrdered By: Claus Obrien on 08-21-2023 Calcium [Mass/Vol] 8.4 mg/dL Low 8.6-10.3 [facility] Comment on above: Performed By: #### A MALLORIEUAJESSICA, CG, CUU #### [facility] [address] [place] [address] [place] Carbon dioxide, total [Moles /volume] in Serum or PlasmaOrdered By: Claus Obrien on 08-21-2023 CO2 [Moles/Vol] 21.7 mmol/L Normal 21.0-31.0 [facility] Comment on above: Performed By: #### A DDONUAJESSICA, CG, CUU #### [facility] [address] [place] [id number] [place] Chloride [Moles/volume] in S elder or PlasmaOrdered By: Claus Obrien on 08-21-2023 Chloride [Moles/Vol] 109 mmol/L High 98-107 [facility] Comment on above: Performed By: #### A DDONUAJESSICA, CG, CUU #### [facility] [address] [place] [address] [place] Choriogonadotropin.beta subu nit [Units/volume] in Serum or PlasmaOrdered By: Claus Obrien on 08-21-2023 HCG.beta subunit Qn Negative [facility] Color of Urine by AutoOrdere d By: Claus Obrien on 08-21-2023 Color (U) Colorless Normal Yellow [facility] Comment on above: Order Comment: Name Collection Type:: Clean-Voided Midstream Performed By: #### A DDONUAPLUS, BRITTANIECG, CUU #### [address] Complete Blood Count Auto Di ffon 08-21-2023 Mean Corpuscular HGB Conc 33.6 g/dL Normal 32.0-35.0 [facility] Comment on above: Performed By: #### H EPATIC, MG, LIPASE, CMP, CBC #### [address] Monocytes/100 WBC (Bld) 14.35 % Normal 0.00-20.00 [facility] Comment on above: Performed By: #### H EPATIC, MG, LIPASE, CMP, CBC #### [address] NRBC% 0.1 /100{WBC} Normal 0-0.5 [facility] Comment on above: Performed By: #### H EPATIC, MG, LIPASE, CMP, CBC #### [address] Creatinine [Mass/volume] in Serum or PlasmaOrdered By: Claus Obrien on 08-21-2023 Creatinine [Mass/Vol] 0.73 mg/dL Normal 0.60-1.20 [facility] Comment on above: Performed By: #### A DDONUAPLUS, BRITTANIECG, CUU #### [address] Erythrocyte distribution wid th [Ratio] by Automated countOrdered By: Claus Obrien on 08-21-2023 Erythrocyte distribution width (RBC) [Ratio] 13.7 % Normal 11.9-15.3 [facility] Comment on above: Performed By: #### H EPATIC, MG, LIPASE, CMP, CBC #### [address] Erythrocytes [#/volume] in B lood by Automated countOrdered By: Claus Obrien on 08-21-2023 RBC (Bld) [#/Vol] 3.89 10*6/uL Normal 3.60-5.00 [facility] Comment on above: Performed By: #### H EPATIC, MG, LIPASE, CMP, CBC #### [facility] [address] Glucose [Mass/volume] in Ser um or PlasmaOrdered By: Claus Obrien on 08-21-2023 Glucose [Mass/Vol] 83 mg/dL Normal 70-100 [facility] Comment on above: ADA recommended refe rence rangeRandom Glucose Reference Range is dependent on time and content of last meal. Glucose of more than 200 mg/dL in a nonstressed, ambulatory subject supports the diagnosis of Diabetes Mellitus. Result Comment: [place] om Glucose Reference Range is dependent on time and content of last meal. Glucose of more than 200 mg/dL in a nonstressed, ambulatory subject supports the diagnosis of Diabetes Mellitus. ADA recommended reference range Performed By: #### A DDONUAJESSICA, ALIYAHG, CUU #### [facility] [address] [place] [id number] [facility] Glucose [Mass/volume] in Uri ne by Test stripOrdered By: Claus Obrien on 08-21-2023 Glucose Test strip (U) [Mass/Vol] Normal mg/dL Normal [facility] HCG ( test) [place].rapi d Ql (U)Ordered By: Claus Obrien on 08-21-2023 HCG ( test) Ql (U) Negative [facility] HCG,Qualitative Serumon HCG,Qualitative Serum Negative Normal [facility] Comment on above: Result Comment: PERF ORMED BY: [place] [id number] PATHOLOGIST AUTO WINDER BAUTISTA BAKER M.D. Performed By: #### A DDONUAPLUS, UHCG, CUU #### [facility] [address] [place] [id number] [facility] HCG,Urineon 08-21-2023 Beta HCG ( test) Ql (U) Negative Normal [facility] Comment on above: Order Comment: Name Collection Type:: Clean-Voided Midstream Result Comment: PERF ORMED BY: [place] [address] PATHOLOGIST AUTO WINDER BAUTISTA BAKER M.D. Performed By: #### A JOSESITO RAY, CUU #### [address] Hematocrit [Volume Fraction] of Blood by Automated countOrdered By: Claus Obrien on 08-21-2023 Hematocrit (Bld) [Volume fraction] 33.5 % Low 34.0-46.4 [facility] Comment on above: Performed By: #### H EPATIC, MG, LIPASE, CMP, CBC #### [address] Hemoglobin Test strip Ql (U) Ordered By: Claus Obrien on 08-21-2023 Hemoglobin Ql (U) Negative Negative [facility] Hemoglobin [Mass/volume] in BloodOrdered By: Claus Obrien on 08-21-2023 Hemoglobin (Bld) [Mass/Vol] 11.3 g/dL Low 11.8-15.4 [facility] Comment on above: Performed By: #### H EPATIC, MG, LIPASE, CMP, CBC #### [address] Hepatic Panelon 08-21-2023 Albumin [Mass/Vol] 3.9 g/dL Normal 3.5-5.7 [facility] Comment on above: Performed By: #### A DDONUABRITTANIE LOPEZCG, CUU #### [address] Bilirubin,Indirect 0.2 mg/dL Normal [facility] Comment on above: Performed By: #### A DDONUAJESSICA, BRITTANIECG, CUU #### [address] Bilirubin.indirect [Mass/Vol] 0.10 mg/dL Normal 0.03-0.18 [facility] Comment on above: Performed By: #### A DDONUAJESSICA, BRITTANIECG, CUU #### [address] [place] [address] [place] INR in Platelet poor plasma by Coagulation assayOrdered By: Claus Obrien on 08-21-2023 INR Coag (PPP) [Relative time] 1.1 {INR} Normal [facility] Comment on above: INR Therapeutic Rang [...] valves: 3 - 4.5 Performed By: #### A DDONUAPLUS, UHCG, CUU #### [place] [address] [place] Ketones [Presence] in Urine by Test stripOrdered By: Claus Obrien on 08-21-2023 Ketones Ql (U) Negative Normal Negative [facility] Comment on above: Order Comment: Name Collection Type:: Clean-Voided Midstream Performed By: #### A DDONUAPLUS, UHCG, CUU #### [place] [address] [place] Leukocyte esterase [Presence ] in Urine by Test stripOrdered By: Claus Obrien on 08-21-2023 Leukocyte esterase Test strip Ql (U) Negative Normal Negative [facility] Comment on above: Order Comment: Name Collection Type:: Clean-Voided Midstream Performed By: #### A DDONUAPLUS, UHCG, CUU #### [place] [address] [place] Leukocytes [#/volume] correc darvin for nucleated erythrocytes in Blood by Automated counOrdered By: Claus Obrien on 08-21-2023 WBC corrected for nucl RBC Auto (Bld) [#/Vol] 3.9 10*3/uL 3.8-11.6 [facility] Leukocytes [#/volume] in Blo od by Automated countOrdered By: Claus Obrien on 08-21-2023 WBC (Bld) [#/Vol] 3.9 10*3/uL Normal 3.8-11.6 [facility] Comment on above: Performed By: #### H EPATIC, MG, LIPASE, CMP, CBC #### [address] Lipase [Enzymatic activity/v olume] in Serum or PlasmaOrdered By: Claus Obrien on 08-21-2023 Lipase [Catalytic activity/Vol] 43.0 U/L Normal 11.0-82.0 [facility] Comment on above: Performed By: #### A DDONUAPLUS, UHCG, CUU #### [place] [address] [place] Lymphocytes [#/volume] in Bl ood by Automated countOrdered By: Claus Obrien on 08-21-2023 Lymphocytes (Bld) [#/Vol] 1.2 10*3/uL Normal 1.00-4.8 [facility] Comment on above: Performed By: #### H EPATIC, MG, LIPASE, CMP, CBC #### [place] [address] [place] Lymphocytes/100 leukocytes i n Blood by Automated countOrdered By: Claus Obrien on 08-21-2023 Lymphocytes/100 WBC (Bld) 30.2 % Normal . [facility] Comment on above: Performed By: #### H EPATIC, MG, LIPASE, CMP, CBC #### [place] [address] [place] MCH [Entitic mass] by Automa darvin countOrdered By: Claus Obrien on 08-21-2023 MCH (RBC) [Entitic mass] 29.0 pg Normal 24.7-34.3 [facility] Comment on above: Performed By: #### H EPATIC, MG, LIPASE, CMP, CBC #### [place] [id number] [place] MCHC Auto (RBC) [Mass/Vol]Or dered By: Claus Obrien on 08-21-2023 MCHC (RBC) [Mass/Vol] 33.6 g/dL 32.0-35.0 [facility] MCV [Entitic volume] by Auto mated countOrdered By: Claus Obrien on 08-21-2023 MCV (RBC) [Entitic vol] 86.2 fL Normal 80-100 [facility] Comment on above: Performed By: #### H EPATIC, MG, LIPASE, CMP, CBC #### [facility] [address] [place] [address] Monocyte distribution width [Entitic volume] in Blood by AutomatedOrdered By: Claus Obrien on 08-21-2023 Monocyte distribution width Auto (Bld) [Entitic vol] 14.35 % 0.00-20.00 [facility] Neutrophils [#/volume] in Bl ood by Automated countOrdered By: Claus Obrien on 08-21-2023 Neutrophils (Bld) [#/Vol] 2.3 10*3/uL Normal 1.8-7.7 [facility] Comment on above: Performed By: #### H EPATIC, MG, LIPASE, CMP, CBC #### [facility] [address] [place] [address] Nitrite Test strip Ql (U)Ord ered By: Claus Obrien on 08-21-2023 Nitrite Ql (U) Negative Negative [facility] No Panel InformationOrdered By: Claus Obrien on 08-21-2023 Estimated GFR (CKD-EPI) > 60.0 mL/Min [facility] Creatinine Clearance (Chem 115.16 [facility] Nucleated erythrocytes [Pres ence] in Blood by Automated countOrdered By: Claus Obrien on 08-21-2023 Nucleated RBC Auto Ql (Bld) 0.1 /100{WBC} 0-0.5 [facility] Partial Thromboplastin Timeo n 08-21-2023 aPTT Coag (Bld) [Time] 28.4 s Normal 25.1-36.5 [facility] Comment on above: Result Comment: A he matocrit value greater than 55% may lead to inaccurate results in coagulation testing. Patients having hematocrit values >55% require a special collection tube for coagulation studies. Please contact the laboratory at [phone] for redraw instructions. PERFORMED BY: [place] [address] PATHOLOGIST AUTO WINDER BAUTISTA BAKER M.D. Performed By: #### A DDONUAPLUS, UHCG, CUU #### [address] Platelet mean volume [Entiti c volume] in Blood by Automated countOrdered By: Claus Obrien on 08-21-2023 Platelet mean volume (Bld) [Entitic vol] 8.9 fL Normal 6.3-10.7 [facility] Comment on above: Performed By: #### H EPATIC, MG, LIPASE, CMP, CBC #### [address] Platelets [#/volume] in Bloo d by Automated countOrdered By: Claus Obrien on 08-21-2023 Platelets (Bld) [#/Vol] 208 10*3/uL Normal 150-450 [facility] Comment on above: Performed By: #### H EPATIC, MG, LIPASE, CMP, CBC #### [address] Potassium [Moles/volume] in Serum or PlasmaOrdered By: Claus Obrien on 08-21-2023 Potassium [Moles/Vol] 3.6 mmol/L Normal 3.5-5.1 [facility] Comment on above: Performed By: #### A DDONUAPLUS, UHCG, CUU #### [place] [address] [place] Protein Test strip (U) [Mass /Vol]Ordered By: Claus Obrien on 08-21-2023 Protein (U) [Mass/Vol] Negative Negative [facility] Protein [Mass/volume] in Ser um or PlasmaOrdered By: Claus Obrien on 08-21-2023 Protein [Mass/Vol] 6.4 g/dL Normal 6.4-8.9 [facility] Comment on above: Performed By: #### A BRITTANIE RAYCG, CUU #### [address] Prothrombin time (PT)Ordered By: Claus Obrien on 08-21-2023 PT Coag (PPP) [Time] 12.5 s Normal 9.0-12.9 [facility] Comment on above: A hematocrit value g reater than 55% may lead to inaccurate results in coagulation testing. Patients having hematocrit values >55% require a special collection tube for coagulation studies. Please contact the laboratory at [phone] for redraw instructions. Result Comment: A he matocrit value greater than 55% may lead to inaccurate results in coagulation testing. Patients having hematocrit values >55% require a special collection tube for coagulation studies. Please contact the laboratory at [phone] for redraw instructions. Performed By: #### A MALLORIEUAJESSICA UHCG, CUU #### [address] Serum globulin measurement b y calculation (mass/volume)Ordered By: Claus Obrien on 08-21-2023 Globulin (S) [Mass/Vol] 2.5 g/dL [facility] Comment on above: Performed By: #### A BRITTANIE RAYCG, CUU #### [address] Serum or plasma albumin/glob ulin mass ratioOrdered By: Claus Obrien on 08-21-2023 Albumin/Globulin [Mass ratio] 1.6 {ratio} [facility] Comment on above: Performed By: #### A DDONUAJESSICA UHCG, CUU #### [address] Serum or plasma anion gap de terminationOrdered By: Claus Obrien on 08-21-2023 Anion gap [Moles/Vol] 8.9 mmol/L Normal 6.0-15.0 [facility] Comment on above: Performed By: #### A DDONUAJESSICA UHCG, CUU #### [address] [place] [address] [place] Serum or plasma non-glucuron idated bilirubin measurement (mass/volume)Ordered By: Claus Obrien on 08-21-2023 Bilirubin.indirect [Mass/Vol] 0.2 mg/dL [facility] Sodium [Moles/volume] in Ser um or PlasmaOrdered By: Claus Obrien on 08-21-2023 Sodium [Moles/Vol] 136 mmol/L Normal 136-145 [facility] Comment on above: Performed By: #### A DDONUAPLUS, UHCG, CUU #### [address] Specific gravity Test strip (U) [Rel density]Ordered By: Claus Obrien on 08-21-2023 Specific gravity (U) [Rel density] 1.004 1.001-1.030 [facility] Urea nitrogen [Mass/volume] in Serum or PlasmaOrdered By: Claus Obrien on 08-21-2023 Urea nitrogen [Mass/Vol] 8 mg/dL Normal 7-25 [facility] Comment on above: Performed By: #### A DDONUAPLUS, UHCG, CUU #### [address] Urinalysison 08-21-2023 Bilirubin,Urine Negative Normal Negative [facility] Comment on above: Order Comment: Name Collection Type:: Clean-Voided Midstream Performed By: #### A DDONUAPLUS, UHCG, CUU #### [address] Glucose Ql (U) Normal Normal Normal [facility] Comment on above: Order Comment: Name Collection Type:: Clean-Voided Midstream Performed By: #### A DDONUAPLUS, UHCG, CUU #### [address] Nitrite,Urine Negative Normal Negative [facility] Comment on above: Order Comment: Name Collection Type:: Clean-Voided Midstream Performed By: #### A DDONUAPLUS, UHCG, CUU #### [address] [place] [address] [place] Occult Blood,Urine Negative Normal Negative [facility] Comment on above: Order Comment: Name Collection Type:: Clean-Voided Midstream Performed By: #### A DDONUAPLUS, UHCG, CUU #### [address] Protein,Urine Negative Normal Negative [facility] Comment on above: Order Comment: Name Collection Type:: Clean-Voided Midstream Performed By: #### A DDONUAPLUS, UHCG, CUU #### [address] Specificy [place],Urine 1.004 Normal 1.001-1.030 [facility] Comment on above: Order Comment: Name Collection Type:: Clean-Voided Midstream Performed By: #### A DDONUAPLUS, UHCG, CUU #### [address] Urobilinogen,Urine Normal Normal Normal [facility] Comment on above: Order Comment: Name Collection Type:: Clean-Voided Midstream Performed By: #### A DDONUAPLUS, UHCG, CUU #### [address] Urine appearanceOrdered By: Claus Obrien on 08-21-2023 Appearance (U) Clear Normal Clear [facility] Comment on above: Order Comment: Name Collection Type:: Clean-Voided Midstream Performed By: #### A DDONUAPLUS, UHCG, CUU #### [address] Urobilinogen Test strip (U) [Mass/Vol]Ordered By: Claus Obrien on 08-21-2023 Urobilinogen (U) [Mass/Vol] Normal mg/dL Normal [facility] pH of Urine by Test stripOrd ered By: Claus Obrien on 08-21-2023 pH (U) 6.5 [pH] Normal 5.0-9.0 [facility] Comment on above: Order Comment: Name Collection Type:: Clean-Voided Midstream Performed By: #### A JOSESITO RAY, CUU #### [facility] [address] [place] [address] [place] CNPNon 08-18-2023 CNPN Normal [facility] Alanine aminotransferase [En zymatic activity/volume] in Serum or PlasmaOrdered By: Shaan Sabillon on 08-14-2023 ALT [Catalytic activity/Vol] 21 U/L Normal 7-52 [facility] Comment on above: Performed By: #### A JOSESITO RAY, CUU #### [facility] [address] Albumin [Mass/volume] in Ser um or Plasma by Bromocresol green (BCG) dye binding methoOrdered By: Shaan Sabillon on 08-14-2023 Albumin BCG dye [Mass/Vol] 4.2 g/dL 3.5-5.7 [facility] Alkaline phosphatase [Enzyma tic activity/volume] in Serum or PlasmaOrdered By: Shaan Sabillon on 08-14-2023 ALP [Catalytic activity/Vol] 59 U/L Normal 34-104 [facility] Comment on above: Performed By: #### A JOSESITO RAY, CUU #### [facility] [address] [place] [address] Aspartate aminotransferase [ Enzymatic activity/volume] in Serum or PlasmaOrdered By: Shaan Sabillon on 08-14-2023 AST [Catalytic activity/Vol] 32 U/L Normal 13-39 [facility] Comment on above: Performed By: #### A JOSESITO RAY, CUU #### [facility] [address] [place] [address] Automated basophil %Ordered By: Shaan Sabillon on 08-14-2023 Basophils/100 WBC (Bld) 0.6 % Normal . [facility] Comment on above: Performed By: #### A JOSESITO RAY, CUU #### [facility] [address] [place] [address] Automated basophil countOrde red By: Shaan Sabillon on 08-14-2023 Basophils (Bld) [#/Vol] 0.0 10*3/uL Normal 0.0-0.2 [facility] Comment on above: Result Comment: PERF ORMED BY: [place] [address] PATHOLOGIST AUTO WINDER BAUTISTA BAKER M.D. Performed By: #### A [facility]ORY [facility], CUU #### [facility] [address] [place] [address] Automated blood monocyte cou ntOrdered By: Shaan Sabillon on 08-14-2023 Monocytes (Bld) [#/Vol] 0.5 10*3/uL Normal 0.0-0.8 [facility] Comment on above: Performed By: #### A CORY ELIS, CUU #### [address] Automated eosinophil %Ordere d By: Shaan Sabillon on 08-14-2023 Eosinophils/100 WBC (Bld) 0.7 % Normal . [facility] Comment on above: Performed By: #### A CORY ELIS, CUU #### [facility] [address] [place] [address] Automated eosinophil countOr dered By: Shaan Sabillon on 08-14-2023 Eosinophils (Bld) [#/Vol] 0.0 10*3/uL Normal 0.0-0.45 [facility] Comment on above: Performed By: #### A CORY ELIS, CUU #### [address] Automated monocyte %Ordered By: Shaan Sabillon on 08-14-2023 Monocytes/100 WBC (Bld) 7.0 % Normal . [facility] Comment on above: Performed By: #### A CORY ELIS, CUU #### [address] Automated neutrophil %Ordere d By: Shaan Sabillon on 08-14-2023 Neutrophils/100 WBC (Bld) 54.4 % Normal . [facility] Comment on above: Performed By: #### A DDFAIZAUAJESSICA, BRITTANIECG, CUU #### [facility] [address] Basic Metabolic Panelon 07-17 Creatinine Clr Calc Pharmacy 116.71 Normal [facility] Comment on above: Performed By: #### A MALLORIEUAJESSICA, UHCG, CUU #### [address] GFR/1.73 sq M.predicted MDRD (S/P/Bld) [Vol rate/Area] mL/min/{1.73_m2} Normal [facility] Comment on above: Performed By: #### A MALLORIEUAJESSICA, ALIYAHG, CUU #### [address] Bilirubin Test strip Ql (U)O rdered By: Shaan Sabillon on 08-14-2023 Bilirubin Ql (U) Negative Negative [facility] Bilirubin.direct [Mass/volum e] in Serum or PlasmaOrdered By: Shaan Sabillon on 08-14-2023 Bilirubin.direct [Mass/Vol] 0.10 mg/dL 0.03-0.18 [facility] Bilirubin.total [Mass/volume ] in Serum or PlasmaOrdered By: Shaan Sabillon on 08-14-2023 Bilirubin [Mass/Vol] 0.3 mg/dL Normal 0.3-1.0 [facility] Comment on above: Performed By: #### A CORY, BRITTANIECG, CUU #### [address] abdomen pelvis w conon CT abdomen pelvis w con [facility] [place] [address] [place] [address] CT Scan Report Signed Patient: Abbey Garcia MR#: [id number] : 1990 Acct:[id number] Age/Sex: 33 / F ADM Date: 08/14/23 Loc: ER Room: Type: [facility] ER Attending Dr: Copies to: Shaan [...] Medel Jr., D.O.08/14/2023 5:38 PM Dictation Location: [place] [address] Transcribed By: [facility] 08/14/23 1738 Dictated By: Cornel Medel Jr, DO 08/14/23 173 Signed By: 08/14/231737 Normal [facility] Calcium [Mass/volume] in Ser um or PlasmaOrdered By: Shaan Sabillon on 08-14-2023 Calcium [Mass/Vol] 8.7 mg/dL Normal 8.6-10.3 [facility] Comment on above: Performed By: #### A JOSESITO RAY CUU #### [address] Carbon dioxide, total [Moles /volume] in Serum or PlasmaOrdered By: Shaan Sabillon on 08-14-2023 CO2 [Moles/Vol] 21.8 mmol/L Normal 21.0-31.0 [facility] Comment on above: Performed By: #### A ALIYAH RAYG, CUU #### [place] [address] [place] Chloride [Moles/volume] in S elder or PlasmaOrdered By: Shaan Sabillon on 08-14-2023 Chloride [Moles/Vol] 110 mmol/L High 98-107 [facility] Comment on above: Performed By: #### A BRITTANIE RAYCG, CUU #### [address] Color of Urine by AutoOrdere d By: Sahan Sabillon on 08-14-2023 Color (U) Light-yellow Normal Yellow [facility] Comment on above: Order Comment: Name Collection Type:: Clean-Voided Midstream Performed By: #### A ALIYAH RAYG, CUU #### [address] Complete Blood Count Auto Di ffon 08-14-2023 Mean Corpuscular HGB Conc 33.4 g/dL Normal 32.0-35.0 [facility] Comment on above: Performed By: #### A BRITTANIE RAYCG, CUU #### [place] [address] [place] Monocytes/100 WBC (Bld) 16.29 % Normal 0.00-20.00 [facility] Comment on above: Performed By: #### A NISHONBRITTANIE MAYSCG, CUU #### [address] NRBC% 0.0 /100{WBC} Normal 0-0.5 [facility] Comment on above: Performed By: #### A BRITTANIE RAYCG, CUU #### [place] [address] [place] Creatinine [Mass/volume] in Serum or PlasmaOrdered By: Shaan Sabillon on 08-14-2023 Creatinine [Mass/Vol] 0.72 mg/dL Normal 0.60-1.20 [facility] Comment on above: Performed By: #### A DDONUAPLUS, UHCG, CUU #### [facility] [address] Erythrocyte distribution wid th [Ratio] by Automated countOrdered By: Shaan Sabillon on 08-14-2023 Erythrocyte distribution width (RBC) [Ratio] 14.0 % Normal 11.9-15.3 [facility] Comment on above: Performed By: #### A DDONUAPLUS, UHCG, CUU #### [facility] [address] Erythrocytes [#/volume] in B lood by Automated countOrdered By: Shaan Sabillon on 08-14-2023 RBC (Bld) [#/Vol] 3.99 10*6/uL Normal 3.60-5.00 [facility] Comment on above: Performed By: #### A DDONUAPLUS, UHCG, CUU #### [facility] [address] [place] [address] [place] Glucose [Mass/volume] in Ser um or PlasmaOrdered By: Shaan Sabillon on 08-14-2023 Glucose [Mass/Vol] 82 mg/dL Normal 70-100 [facility] Comment on above: ADA recommended refe rence rangeRandom Glucose Reference Range is dependent on time and content of last meal. Glucose of more than 200 mg/dL in a nonstressed, ambulatory subject supports the diagnosis of Diabetes Mellitus. Result Comment: [place] om Glucose Reference Range is dependent on time and content of last meal. Glucose of more than 200 mg/dL in a nonstressed, ambulatory subject supports the diagnosis of Diabetes Mellitus. ADA recommended reference range Performed By: #### A DDONUAPLUS, UHCG, CUU #### [facility] [address] [place] [address] [place] Glucose [Mass/volume] in Uri ne by Test stripOrdered By: Shaan Sabillon on 08-14-2023 Glucose Test strip (U) [Mass/Vol] Normal mg/dL Normal [facility] Hematocrit [Volume Fraction] of Blood by Automated countOrdered By: Shaan Sabillon on 08-14-2023 Hematocrit (Bld) [Volume fraction] 34.7 % Normal 34.0-46.4 [facility] Comment on above: Performed By: #### A DDONDAVON, BRITTANIECG, CUU #### [address] Hemoglobin Test strip Ql (U) Ordered By: Shaan Sabillon on 08-14-2023 Hemoglobin Ql (U) Negative Negative [facility] Hemoglobin [Mass/volume] in BloodOrdered By: Shaan Sabillon on 08-14-2023 Hemoglobin (Bld) [Mass/Vol] 11.6 g/dL Low 11.8-15.4 [facility] Comment on above: Performed By: #### A DDONUAPLUS, UHCG, CUU #### [address] Hepatic Panelon 08-14-2023 Albumin [Mass/Vol] 4.2 g/dL Normal 3.5-5.7 [facility] Comment on above: Performed By: #### A DDONUAPLUS, UHCG, CUU #### [address] Bilirubin,Indirect 0.2 mg/dL Normal [facility] Comment on above: Performed By: #### A DDONUAPLUS, UHCG, CUU #### [address] Bilirubin.indirect [Mass/Vol] 0.10 mg/dL Normal 0.03-0.18 [facility] Comment on above: Performed By: #### A DDONUAPLUS, UHCG, CUU #### [address] Ketones [Presence] in Urine by Test stripOrdered By: Shaan Sabillon on 08-14-2023 Ketones Ql (U) Negative Normal Negative [facility] Comment on above: Order Comment: Name Collection Type:: Clean-Voided Midstream Performed By: #### A DDONUAPLUS, UHCG, CUU #### [place] [address] [place] Lactate [Moles/volume] in Se rum or PlasmaOrdered By: Shaan Sabillon on 08-14-2023 Lactate [Moles/Vol] 0.6 mmol/L Normal 0.5-2.2 [facility] Comment on above: Result Comment: PERF ORMED BY: [place] [address] PATHOLOGIST AUTO WINDER BAUTISTA BAKER M.D. Performed By: #### A DDONUAPLUS, CG, CUU #### [address] Leukocyte esterase [Presence ] in Urine by Test stripOrdered By: Shaan Sabillon on 08-14-2023 Leukocyte esterase Test strip Ql (U) Negative Normal Negative [facility] Comment on above: Order Comment: Name Collection Type:: Clean-Voided Midstream Performed By: #### A DDONUAPLUS, CG, CUU #### [address] Leukocytes [#/volume] correc darvin for nucleated erythrocytes in Blood by Automated counOrdered By: Shaan Sabillon on 08-14-2023 WBC corrected for nucl RBC Auto (Bld) [#/Vol] 6.6 10*3/uL 3.8-11.6 [facility] Leukocytes [#/volume] in Blo od by Automated countOrdered By: Shaan Sabillon on 08-14-2023 WBC (Bld) [#/Vol] 6.6 10*3/uL Normal 3.8-11.6 [facility] Comment on above: Performed By: #### A DDONUAPLUS, CG, CUU #### [place] [address] [place] Lipase [Enzymatic activity/v olume] in Serum or PlasmaOrdered By: Shana Sabillon on 08-14-2023 Lipase [Catalytic activity/Vol] 67.0 U/L Normal 11.0-82.0 [facility] Comment on above: Result Comment: PERF ORMED BY: [place] [address] PATHOLOGIST AUTO WINDER BAUTISTA BAKER M.D. Performed By: #### A JOSESITO RAY, CUU #### [address] Lymphocytes [#/volume] in Bl ood by Automated countOrdered By: Shaan Sabillon on 08-14-2023 Lymphocytes (Bld) [#/Vol] 2.5 10*3/uL Normal 1.00-4.8 [facility] Comment on above: Performed By: #### A JOSESITO RAY, CUU #### [address] Lymphocytes/100 leukocytes i n Blood by Automated countOrdered By: Shaan Sabillon on 08-14-2023 Lymphocytes/100 WBC (Bld) 37.3 % Normal . [facility] Comment on above: Performed By: #### A JOSESITO RAY, CUU #### [address] MCH [Entitic mass] by Automa darvin countOrdered By: Shaan Sabillon on 08-14-2023 MCH (RBC) [Entitic mass] 29.0 pg Normal 24.7-34.3 [facility] Comment on above: Performed By: #### A JOSESITO RAY, CUU #### [address] MCHC Auto (RBC) [Mass/Vol]Or dered By: Shaan Sabillon on 08-14-2023 MCHC (RBC) [Mass/Vol] 33.4 g/dL 32.0-35.0 [facility] MCV [Entitic volume] by Auto mated countOrdered By: Shaan Sabillon on 08-14-2023 MCV (RBC) [Entitic vol] 87.0 fL Normal 80-100 [facility] Comment on above: Performed By: #### A ALIYAH RAYG, CUU #### [address] Monocyte distribution width [Entitic volume] in Blood by AutomatedOrdered By: Shaan Sabillon on 08-14-2023 Monocyte distribution width Auto (Bld) [Entitic vol] 16.29 % 0.00-20.00 [facility] Neutrophils [#/volume] in Bl ood by Automated countOrdered By: Shaan Sabillon on 08-14-2023 Neutrophils (Bld) [#/Vol] 3.6 10*3/uL Normal 1.8-7.7 [facility] Comment on above: Performed By: #### A CORY ELIS, CUU #### [facility] [address] Nitrite Test strip Ql (U)Ord ered By: Shaan Sabillon on 08-14-2023 Nitrite Ql (U) Negative Negative [facility] No Panel InformationOrdered By: Shaan Sabillon on 08-14-2023 Estimated GFR (CKD-EPI) > 60.0 mL/Min [facility] Creatinine Clearance (Chem 116.71 [facility] Nucleated erythrocytes [Pres ence] in Blood by Automated countOrdered By: Shaan Sabillon on 08-14-2023 Nucleated RBC Auto Ql (Bld) 0.0 /100{WBC} 0-0.5 [facility] Platelet mean volume [Entiti c volume] in Blood by Automated countOrdered By: Shaan Sabillon on 08-14-2023 Platelet mean volume (Bld) [Entitic vol] 9.0 fL Normal 6.3-10.7 [facility] Comment on above: Performed By: #### A CORY ELIS, CUU #### [facility] [address] [place] [address] [place] Platelets [#/volume] in Bloo d by Automated countOrdered By: Shaan Sabillon on 08-14-2023 Platelets (Bld) [#/Vol] 281 10*3/uL Normal 150-450 [facility] Comment on above: Performed By: #### A JOSESITO RAY, CUU #### [facility] [address] [place] [address] [place] Potassium [Moles/volume] in Serum or PlasmaOrdered By: Shaan Sabillon on 08-14-2023 Potassium [Moles/Vol] 3.2 mmol/L Low 3.5-5.1 [facility] Comment on above: Performed By: #### A JOSESITO RAY, CUU #### [address] Protein Test strip (U) [Mass /Vol]Ordered By: Shaan Sabillon on 08-14-2023 Protein (U) [Mass/Vol] Negative Negative [facility] Protein [Mass/volume] in Ser um or PlasmaOrdered By: Shaan Sabillon on 08-14-2023 Protein [Mass/Vol] 6.9 g/dL Normal 6.4-8.9 [facility] Comment on above: Performed By: #### A JOSESITO RAY, CUU #### [address] Serum globulin measurement b y calculation (mass/volume)Ordered By: Shaan Sabillon on 08-14-2023 Globulin (S) [Mass/Vol] 2.7 g/dL Normal [facility] Comment on above: Performed By: #### A JOSESITO RAY, CUU #### [address] Serum or plasma albumin/glob ulin mass ratioOrdered By: Shaan Sabillon on 08-14-2023 Albumin/Globulin [Mass ratio] 1.6 {ratio} Normal [facility] Comment on above: Performed By: #### A JOSESITO RAY, CUU #### [address] Serum or plasma anion gap de terminationOrdered By: Shaan Sabillon on 08-14-2023 Anion gap [Moles/Vol] 10.4 mmol/L Normal 6.0-15.0 [facility] Comment on above: Performed By: #### A JOSESITO RAY, CUU #### [address] Serum or plasma non-glucuron idated bilirubin measurement (mass/volume)Ordered By: Shaan Sabillon on 08-14-2023 Bilirubin.indirect [Mass/Vol] 0.2 mg/dL [facility] Sodium [Moles/volume] in Ser um or PlasmaOrdered By: Shaan Ramandeep on 08-14-2023 Sodium [Moles/Vol] 139 mmol/L Normal 136-145 [facility] Comment on above: Performed By: #### A DDONUAPLUS, UHCG, CUU #### [facility] [address] Specific gravity Test strip (U) [Rel density]Ordered By: Shaan Sabillon on 08-14-2023 Specific gravity (U) [Rel density] 1.026 1.001-1.030 [facility] Urea nitrogen [Mass/volume] in Serum or PlasmaOrdered By: Shaan Sabillon on 08-14-2023 Urea nitrogen [Mass/Vol] 8 mg/dL Normal 7-25 [facility] Comment on above: Performed By: #### A DDONUAPLUS, UHCG, CUU #### [address] Urinalysison 08-14-2023 Bilirubin,Urine Negative Normal Negative [facility] Comment on above: Order Comment: Name Collection Type:: Clean-Voided Midstream Performed By: #### A DDONUAPLUS, UHCG, CUU #### [address] Glucose Ql (U) Normal Normal Normal [facility] Comment on above: Order Comment: Name Collection Type:: Clean-Voided Midstream Performed By: #### A DDONUAPLUS, UHCG, CUU #### [place] [address] [place] Nitrite,Urine Negative Normal Negative [facility] Comment on above: Order Comment: Name Collection Type:: Clean-Voided Midstream Performed By: #### A DDONUAPLUS, UHCG, CUU #### [place] [address] [place] Occult Blood,Urine Negative Normal Negative [facility] Comment on above: Order Comment: Name Collection Type:: Clean-Voided Midstream Result Comment: PERF ORMED BY: [place] [address] PATHOLOGIST AUTO WINDER BAUTISTA BAKER M.D. Performed By: #### A DDONUAPLUS, UHCG, CUU #### [address] Protein,Urine Negative Normal Negative [facility] Comment on above: Order Comment: Name Collection Type:: Clean-Voided Midstream Performed By: #### A DDONUAPLUS, UHCG, CUU #### [address] Specificy [place],Urine 1.026 Normal 1.001-1.030 [facility] Comment on above: Order Comment: Name Collection Type:: Clean-Voided Midstream Performed By: #### A DDONUAPLUS, UHCG, CUU #### [address] Urobilinogen,Urine Normal Normal Normal [facility] Comment on above: Order Comment: Name Collection Type:: Clean-Voided Midstream Performed By: #### A DDONUAPLUS, UHCG, CUU #### [address] Urine appearanceOrdered By: Shaan Sabillon on 08-14-2023 Appearance (U) Clear Normal Clear [facility] Comment on above: Order Comment: Name Collection Type:: Clean-Voided Midstream Performed By: #### A DDONUAPLUS, UHCG, CUU #### [address] Urobilinogen Test strip (U) [Mass/Vol]Ordered By: Shaan Sabillon on 08-14-2023 Urobilinogen (U) [Mass/Vol] Normal mg/dL Normal [facility] pH of Urine by Test stripOrd ered By: Shaan Sabillon on 08-14-2023 pH (U) 7.0 [pH] Normal 5.0-9.0 [facility] Comment on above: Order Comment: Name Collection Type:: Clean-Voided Midstream Performed By: #### A DDFAIZAUAPLUS, [facility] #### [facility] [address] CNPNon 08-12-2023 CNPN Normal [facility] CNOVon 08-09-2023 CNOV Normal [facility] CASE MGT INIT ASSESon 2023 CASE MGT INIT ASSES Normal [facility] CBC panel Auto (Bld)on 08-07 Erythrocyte distribution width (RBC) [Ratio] 13.2 % Normal 11.5-15.0 [facility] Comment on above: Order Comment: Speci men Type: BLOOD SPECIMENOrdering Facility: [facility] Address: [address] [place] [address] Performed By: #### 5 8410-2 ####[facility] LABCLIA [id number] [place] [address] [place] Hematocrit (Bld) [Volume fraction] 31.1 % Low 36.0-46.0 [facility] Comment on above: Order Comment: Speci men Type: BLOOD SPECIMENOrdering Facility: [facility] Address: [address] [place] [address] Performed By: #### 5 8410-2 ####[facility] LABCLIA [id number] [place] [address] [place] Hemoglobin (Bld) [Mass/Vol] 9.9 g/dL Low 11.5-15.5 [facility] Comment on above: Order Comment: Speci men Type: BLOOD SPECIMENOrdering Facility: [facility] Address: [address] [place] [address] Performed By: #### 5 8410-2 ####[facility] LABCLIA [id number] [place] [address] [place] MCH (RBC) [Entitic mass] 29.4 pg Normal 26.0-34.0 [facility] Comment on above: Order Comment: Speci men Type: BLOOD SPECIMENOrdering Facility: [facility] Address: [address] [place] [address] Performed By: #### 5 8410-2 ####[facility] LABIA [id number] [place] [address] [place] MCHC (RBC) [Mass/Vol] 31.8 g/dL Normal 30.5-36.0 [facility] Comment on above: Order Comment: Speci men Type: BLOOD SPECIMENOrdering Facility: [facility] Address: [address] [place] [address] Performed By: #### 5 8410-2 ####[facility] [id number] [place] [address] [place] MCV (RBC) [Entitic vol] 92.3 fL Normal 80.0-100.0 [facility] Comment on above: Order Comment: Speci men Type: BLOOD SPECIMENOrdering Facility: [facility] Address: [address] [place] [address] Performed By: #### 5 8410-2 ####[facility] LABIA [id number] [place] [address] [place] Nucleated RBC (Bld) [#/Vol] 10*3/uL Normal <0.01 [facility] Comment on above: Order Comment: Speci men Type: BLOOD SPECIMENOrdering Facility: [facility] Address: [address] [place] [address] Performed By: #### 5 8410-2 ####[facility] LABIA [id number] [place] [address] [place] Platelet mean volume (Bld) [Entitic vol] 10.3 fL Normal 9.0-12.7 [facility] Comment on above: Order Comment: Speci men Type: BLOOD SPECIMENOrdering Facility: [facility] Address: [address] [place] [address] Performed By: #### 5 8410-2 ####[facility] LABIA [id number] [address] [address] [place] Platelets (Bld) [#/Vol] 267 10*3/uL Normal 150-400 [facility] Comment on above: Order Comment: Speci men Type: BLOOD SPECIMENOrdering Facility: [facility] Address: [address] [place] [address] Performed By: #### 5 8410-2 ####[facility] LABIA [id number] [place] [address] [place] RBC (Bld) [#/Vol] 3.37 10*6/uL Low 3.90-5.20 [facility] Comment on above: Order Comment: Speci men Type: BLOOD SPECIMENOrdering Facility: [facility] Address: [address] [place] [address] Performed By: #### 5 8410-2 ####[facility] [id number] [place] [address] [place] WBC (Bld) [#/Vol] 3.17 10*3/uL Low 3.70-11.00 [facility] Comment on above: Order Comment: Speci men Type: BLOOD SPECIMENOrdering Facility: [facility] Address: [address] [place] [address] Performed By: #### 5 8410-2 ####[facility] LABIA [id number] [place] [address] [place] CNDSon 08-08-2023 CNDS Normal [facility] CRP SerPl-mCncon 08-08-2023 CRP [Mass/Vol] mg/L Normal <0.9 [facility] Comment on above: Order Comment: Speci men Type: BLOOD SPECIMENOrdering Facility: [facility] Address: [address] [place] [address] Performed By: #### 2 4362-6, 1987- ####[facility] LABCLIA [id number] [facility] [address] [address] [place] Magnesium SerPl-mCncon 08-07 Magnesium [Mass/Vol] 2.0 mg/dL Normal 1.7-2.3 [facility] Comment on above: Order Comment: Speci men Type: BLOOD SPECIMENOrdering Facility: [facility] Address: [address] [place], [place] [address] Performed By: #### 2 4362-6, 1987-06, ####[facility] LABCLIA [id number] [address] [address] [place] NUTRITIONon 08-08-2023 NUTRITION Normal [facility] Renal function 2000 panelon 08-08-2023 Albumin [Mass/Vol] 3.4 g/dL Low 3.9-4.9 [facility] Comment on above: Order Comment: Speci men Type: BLOOD SPECIMENOrdering Facility: [facility] Address: [address] [place], [place] [address] Performed By: #### 2 4362-6, 1987-06, ####[facility] LABIA [id number] [address] [address] [place] Anion gap [Moles/Vol] 9 mmol/L Normal 8-15 [facility] Comment on above: Order Comment: Speci men Type: BLOOD SPECIMENOrdering Facility: [facility] Address: [address] [place] [address] Performed By: #### 2 4362-6, 1987-06, ####[facility] LABIA [id number] [address] [address] [place] Calcium [Mass/Vol] 8.7 mg/dL Normal 8.5-10.2 [facility] Comment on above: Order Comment: Speci men Type: BLOOD SPECIMENOrdering Facility: [facility] Address: [address] [place] [address] Performed By: #### 2 4362-6, ####[facility] LABCLIA [id number] [address] [address] [place] Chloride [Moles/Vol] 108 mmol/L High 98-107 [facility] Comment on above: Order Comment: Speci men Type: BLOOD SPECIMENOrdering Facility: [facility] Address: [address] [place] [address] Performed By: #### 2 4362-6, ####[facility] LABIA [id number] [address] [place] CO2 [Moles/Vol] 22 mmol/L Normal 22-30 [facility] Comment on above: Order Comment: Speci men Type: BLOOD SPECIMENOrdering Facility: [facility] Address: [address] [place] [address] Performed By: #### 2 4362-6, ####[facility] LABIA [id number] [address] [address] [place] Creatinine [Mass/Vol] 0.69 mg/dL Normal 0.58-0.96 [facility] Comment on above: Order Comment: Speci men Type: BLOOD SPECIMENOrdering Facility: [facility] Address: [address] [place] [address] Performed By: #### 2 4362-6, ####[facility] LABIA [id number] [address] [address] [place] Creatinine and Glomerular filtration rate.predicted panel (S/P/Bld) 117 mL/min/1.73m??? Normal >=60 [facility] Comment on above: Order Comment: Speci men Type: BLOOD SPECIMENOrdering Facility: [facility] Address: [address] [place] [address] Result Comment: Jessica mated Glomerular Filtration Rate [...] reflect actual GFR. Performed By: #### 2 436-, ####[facility] LABCLIA [id number] [facility] [address] [address] [place] Glucose [Mass/Vol] 89 mg/dL Normal 74-99 [facility] Comment on above: Order Comment: Speci men Type: BLOOD SPECIMENOrdering Facility: [facility] Address: [address] [place] [address] Result Comment: The [place] [employer] (ADA) provides guidance for cutoff [...] Standards of Medical Care in Diabetes 2016, [place] [employer]. Diabetes Care. 2016.39(Suppl 1). Performed By: #### 2 4361-07, ####[facility] LABCLIA [id number] [facility] [address] [address] [place] Phosphate [Mass/Vol] 3.9 mg/dL Normal 2.7-4.8 [facility] Comment on above: Order Comment: Lyssai men Type: BLOOD SPECIMENOrdering Facility: [facility] Address: [address] [place] [address] Performed By: #### 2 43603-23, ####[facility] LABCLIA [id number] [place] [address] [place] Potassium [Moles/Vol] 4.1 mmol/L Normal 3.7-5.1 [facility] Comment on above: Order Comment: Speci men Type: BLOOD SPECIMENOrdering Facility: [facility] Address: [address] [place] [address] Performed By: #### 2 4362-6, 1987-06, ####[facility] LABCLIA [id number] [place] [address] [place] Sodium [Moles/Vol] 139 mmol/L Normal 136-144 [facility] Comment on above: Order Comment: Speci men Type: BLOOD SPECIMENOrdering Facility: [facility] Address: [address] [place] [address] Performed By: #### 2 4362-6, 1987-06, ####[facility] LABIA [id number] [place] [address] [place] Urea nitrogen [Mass/Vol] 7 mg/dL Normal 7-21 [facility] Comment on above: Order Comment: Speci men Type: BLOOD SPECIMENOrdering Facility: [facility] Address: [address] [place] [address] Performed By: #### 2 4362-6, 1987-06, ####[facility] LABIA [id number] [place] [id number] [place] CBC W Auto Differential pane l (Bld)on 08-07-2023 Basophils (Bld) [#/Vol] 0.04 10*3/uL Normal <0.11 [facility] Comment on above: Order Comment: Speci men Type: BLOOD SPECIMENOrdering Facility: [facility] Address: [address] [place] [address] Performed By: #### 5 7021-8, 56534-4 ####[facility] LABCLIA [id number] [place] [address] [place] Basophils/100 WBC (Bld) 0.7 % Normal [facility] Comment on above: Order Comment: Speci men Type: BLOOD SPECIMENOrdering Facility: [facility] Address: [address] [place] [address] Performed By: #### 5 7021-8, 24423-8 ####[facility] LABCLIA [id number] [place] [address] [place] Differential cell count method Nom (Bld) Auto Normal [facility] Comment on above: Order Comment: Speci men Type: BLOOD SPECIMENOrdering Facility: [facility] Address: [address] [place] [address] Performed By: #### 5 7021-8, 25575-6 ####[facility] LABCLIA [id number] [place] [address] [place] Eosinophils (Bld) [#/Vol] 0.10 10*3/uL Normal <0.46 [facility] Comment on above: Order Comment: Speci men Type: BLOOD SPECIMENOrdering Facility: [facility] Address: [address] [place] [address] Performed By: #### 5 7021-8, 37709-9 ####[facility] LABCLIA [id number] [place] [address] [place] Eosinophils/100 WBC (Bld) 1.8 % Normal [facility] Comment on above: Order Comment: Speci men Type: BLOOD SPECIMENOrdering Facility: [facility] Address: [address] [place] [address] Performed By: #### 5 7021-8, 22080-2 ####[facility] LABCLIA [id number] [place] [address] [place] Erythrocyte distribution width (RBC) [Ratio] 12.6 % Normal 11.5-15.0 [facility] Comment on above: Order Comment: Speci men Type: BLOOD SPECIMENOrdering Facility: [facility] Address: [address] [place] [address] Performed By: #### 5 7021-8, 19309-3 ####[facility] LABCLIA [id number] [place] [address] [place] Hematocrit (Bld) [Volume fraction] 30.4 % Low 36.0-46.0 [facility] Comment on above: Order Comment: Speci men Type: BLOOD SPECIMENOrdering Facility: [facility] Address: [address] [place] [address] Performed By: #### 5 7021-8, 91952-8 ####[facility] LABCLIA [id number] [place] [address] [place] Hemoglobin (Bld) [Mass/Vol] 10.1 g/dL Low 11.5-15.5 [facility] Comment on above: Order Comment: Speci men Type: BLOOD SPECIMENOrdering Facility: [facility] Address: [address] [place] [address] Performed By: #### 5 7021-8, 25590-7 ####[facility] LABIA [id number] [place] [address] [place] Immature granulocytes (Bld) [#/Vol] 10*3/uL Normal <0.10 [facility] Comment on above: Order Comment: Speci men Type: BLOOD SPECIMENOrdering Facility: [facility] Address: [address] [place] [address] Performed By: #### 5 7021-8, 31994-2 ####[facility] LABCLIA [id number] [place] [address] [place] Immature granulocytes/100 WBC (Bld) 0.2 % Normal [facility] Comment on above: Order Comment: Speci men Type: BLOOD SPECIMENOrdering Facility: [facility] Address: [address] [place] [address] Performed By: #### 5 7021-8, 84130-4 ####[facility] LABCLIA [id number] [place] [address] [place] Lymphocytes (Bld) [#/Vol] 1.13 10*3/uL Normal 1.00-4.00 [facility] Comment on above: Order Comment: Speci men Type: BLOOD SPECIMENOrdering Facility: [facility] Address: [address] [place] [address] Performed By: #### 5 7021-8, 19877-6 ####[facility] LABCLIA [id number] [place] [address] [place] Lymphocytes/100 WBC (Bld) 20.8 % Normal [facility] Comment on above: Order Comment: Speci men Type: BLOOD SPECIMENOrdering Facility: [facility] Address: [address] [place] [address] Performed By: #### 5 7021-8, 05513-7 ####[facility] LABCLIA [id number] [place] [address] [place] MCH (RBC) [Entitic mass] 29.5 pg Normal 26.0-34.0 [facility] Comment on above: Order Comment: Speci men Type: BLOOD SPECIMENOrdering Facility: [facility] Address: [address] [place] [address] Performed By: #### 5 7021-8, 69215-4 ####[facility] LABCLIA [id number] [place] [address] [place] MCHC (RBC) [Mass/Vol] 33.2 g/dL Normal 30.5-36.0 [facility] Comment on above: Order Comment: Speci men Type: BLOOD SPECIMENOrdering Facility: [facility] Address: [address] [place] [address] Performed By: #### 5 7021-8, 09691-8 ####[facility] LABCLIA [id number] [place] [address] [place] MCV (RBC) [Entitic vol] 88.9 fL Normal 80.0-100.0 [facility] Comment on above: Order Comment: Speci men Type: BLOOD SPECIMENOrdering Facility: [facility] Address: [address] [place] [address] Performed By: #### 5 7021-8, 77602-8 ####[facility] LABCLIA [id number] [place] [address] [place] Monocytes (Bld) [#/Vol] 0.38 10*3/uL Normal <0.87 [facility] Comment on above: Order Comment: Speci men Type: BLOOD SPECIMENOrdering Facility: [facility] Address: [address] [place] [address] Performed By: #### 5 7021-8, 15980-2 ####[facility] LABCLIA [id number] [place] [address] [place] Monocytes/100 WBC (Bld) 7.0 % Normal [facility] Comment on above: Order Comment: Speci men Type: BLOOD SPECIMENOrdering Facility: [facility] Address: [address] [place] [address] Performed By: #### 5 7021-8, 65411-1 ####[facility] LABCLIA [id number] [place] [address] [place] Neutrophils (Bld) [#/Vol] 3.78 10*3/uL Normal 1.45-7.50 [facility] Comment on above: Order Comment: Speci men Type: BLOOD SPECIMENOrdering Facility: [facility] Address: [address] [place] [address] Performed By: #### 5 7021-8, 36922-8 ####[facility] LABCLIA [id number] [place] [address] [place] Neutrophils/100 WBC (Bld) 69.5 % Normal [facility] Comment on above: Order Comment: Speci men Type: BLOOD SPECIMENOrdering Facility: [facility] Address: [address] [place] [address] Performed By: #### 5 7021-8, 52343-1 ####[facility] LABCLIA [id number] [place] [address] [place] Nucleated RBC (Bld) [#/Vol] 10*3/uL Normal <0.01 [facility] Comment on above: Order Comment: Speci men Type: BLOOD SPECIMENOrdering Facility: [facility] Address: [address] [place] [address] Performed By: #### 5 7021-8, 44716-3 ####[facility] LABCLIA [id number] [place] [address] [place] Nucleated RBC/100 WBC (Bld) [Ratio] 0.0 /100 WBC Normal [facility] Comment on above: Order Comment: Speci men Type: BLOOD SPECIMENOrdering Facility: [facility] Address: [address] [place] [address] Performed By: #### 5 7021-8, 95356-6 ####[facility] LABIA [id number] [place] [address] [place] Platelet mean volume (Bld) [Entitic vol] 10.0 fL Normal 9.0-12.7 [facility] Comment on above: Order Comment: Speci men Type: BLOOD SPECIMENOrdering Facility: [facility] Address: [address] [place] [address] Performed By: #### 5 7021-8, 73009-0 ####[facility] LABCLIA [id number] [place] [address] [place] Platelets (Bld) [#/Vol] 271 10*3/uL Normal 150-400 [facility] Comment on above: Order Comment: Speci men Type: BLOOD SPECIMENOrdering Facility: [facility] Address: [address] [place] [address] Performed By: #### 5 7021-8, 09208-0 ####[facility] LABCLIA [id number] [place] [address] [place] RBC (Bld) [#/Vol] 3.42 10*6/uL Low 3.90-5.20 [facility] Comment on above: Order Comment: Speci men Type: BLOOD SPECIMENOrdering Facility: [facility] Address: [address] [place] [address] Performed By: #### 5 7021-8, 78979-3 ####[facility] LABCLIA [id number] [place] [address] [place] WBC (Bld) [#/Vol] 5.44 10*3/uL Normal 3.70-11.00 [facility] Comment on above: Order Comment: Speci men Type: BLOOD SPECIMENOrdering Facility: [facility] Address: [address] [place] [address] Performed By: #### 5 7021-8, 75828-9 ####[facility] LABCLIA [id number] [place] [address] [place] Comprehensive metabolic 2000 panelon 08-07-2023 Albumin [Mass/Vol] 3.7 g/dL Low 3.9-4.9 [facility] Comment on above: Order Comment: Speci men Type: BLOOD SPECIMENOrdering Facility: [facility] Address: [address] [place] [address] Performed By: #### 2 4323-8, 3040-3, 45486-9 ####[facility] LABCLIA [id number] [place] [address] [place] ALP [Catalytic activity/Vol] 58 U/L Normal 34-123 [facility] Comment on above: Order Comment: Speci men Type: BLOOD SPECIMENOrdering Facility: [facility] Address: [address] [place] [address] Performed By: #### 2 4323-8, 3040-3, ####[facility] LABCLIA [id number] [place] [address] [place] ALT [Catalytic activity/Vol] 16 U/L Normal 7-38 [facility] Comment on above: Order Comment: Speci men Type: BLOOD SPECIMENOrdering Facility: [facility] Address: [address] [place] [address] Performed By: #### 2 4323-8, 3039-3, ####[facility] LABCLIA [id number] [place] [address] [place] Anion gap [Moles/Vol] 8 mmol/L Normal 8-15 [facility] Comment on above: Order Comment: Speci men Type: BLOOD SPECIMENOrdering Facility: [facility] Address: [address] [place] [address] Performed By: #### 2 4323-8, 3039-3, ####[facility] LABCLIA [id number] [place] [address] [place] AST [Catalytic activity/Vol] 18 U/L Normal 13-35 [facility] Comment on above: Order Comment: Speci men Type: BLOOD SPECIMENOrdering Facility: [facility] Address: [address] [place] [address] Performed By: #### 2 4323-8, 304-3, ####[facility] LABIA [id number] [place] [id number] [place] Bilirubin [Mass/Vol] 0.2 mg/dL Normal 0.2-1.3 [facility] Comment on above: Order Comment: Speci men Type: BLOOD SPECIMENOrdering Facility: [facility] Address: [address] [place] [address] Performed By: #### 2 4323-8, 3040-3, ####[facility] LABCLIA [id number] [address] [address] [place] Calcium [Mass/Vol] 8.0 mg/dL Low 8.5-10.2 [facility] Comment on above: Order Comment: Speci men Type: BLOOD SPECIMENOrdering Facility: [facility] Address: [address] [place] [address] Performed By: #### 2 4323-8, 3039-04, ####[facility] LABCLIA [id number] [place] [address] [place] Chloride [Moles/Vol] 108 mmol/L High 98-107 [facility] Comment on above: Order Comment: Speci men Type: BLOOD SPECIMENOrdering Facility: [facility] Address: [address] [place] [address] Performed By: #### 2 4323-8, 3039-04, ####[facility] LABCLIA [id number] [place] [address] [place] CO2 [Moles/Vol] 23 mmol/L Normal 22-30 [facility] Comment on above: Order Comment: Speci men Type: BLOOD SPECIMENOrdering Facility: [facility] Address: [address] [place] [address] Performed By: #### 2 4323-8, 3039-04, ####[facility] LABCLIA [id number] [address] [address] [place] Creatinine [Mass/Vol] 0.60 mg/dL Normal 0.58-0.96 [facility] Comment on above: Order Comment: Speci men Type: BLOOD SPECIMENOrdering Facility: [facility] Address: [address] [place] [address] Performed By: #### 2 4323-8, 3, ####[facility] LABCLIA [id number] [place] [address] [place] Creatinine and Glomerular filtration rate.predicted panel (S/P/Bld) 121 mL/min/1.73m??? Normal >=60 [facility] Comment on above: Order Comment: Geraldo marrero Type: BLOOD SPECIMENOrdering Facility: [facility] Address: [address] [place] [address] Result Comment: Jessica mated Glomerular Filtration Rate [...] GFR. Performed By: #### 2 4323-8, 3040-3, ####[facility] [id number] [place] [address] [place] Glucose [Mass/Vol] 89 mg/dL Normal 74-99 [facility] Comment on above: Order Comment: Geraldo marrero Type: BLOOD SPECIMENOrdering Facility: [facility] Address: [address] [place] [address] Result Comment: The [place] [employer] (ADA) provides guidance for cutoff [...] Standards of Medical Care in Diabetes 2016, [place] [employer]. Diabetes Care. 2016.39(Suppl 1). Performed By: #### 2 4323-8, 3040-3, 96213-4 ####[facility] [id number] [place] [address] [place] Potassium [Moles/Vol] 3.6 mmol/L Low 3.7-5.1 [facility] Comment on above: Order Comment: Speci men Type: BLOOD SPECIMENOrdering Facility: [facility] Address: [address] [place] [address] Performed By: #### 2 4323-8, 0-3, ####[facility] LABCLIA [id number] [place] [address] [place] Protein [Mass/Vol] 5.8 g/dL Low 6.3-8.0 [facility] Comment on above: Order Comment: Speci men Type: BLOOD SPECIMENOrdering Facility: [facility] Address: [address] [place] [address] Performed By: #### 2 4323-8, 3039-3, ####[facility] LABCLIA [id number] [place] [id number] [place] Sodium [Moles/Vol] 139 mmol/L Normal 136-144 [facility] Comment on above: Order Comment: Speci men Type: BLOOD SPECIMENOrdering Facility: [facility] Address: [address] [place] [address] Performed By: #### 2 4323-8, 3039-3, ####[facility] LABCLIA [id number] [place] [address] [place] Urea nitrogen [Mass/Vol] 10 mg/dL Normal 7-21 [facility] Comment on above: Order Comment: Speci men Type: BLOOD SPECIMENOrdering Facility: [facility] Address: [address] [place] [address] Performed By: #### 2 4323-8, 3039-3, ####[facility] LABCLIA [id number] [place] [id number] [place] [id number] 08-07-2023 ECG01 Normal [facility] ED NOTEon 08-07-2023 ED NOTE HNO ID: [id number] Author: PASTORA MADERA RN Service: ? Author Type: Registered Nurse Type: ED Notes Filed: 08/07/2023 17:39 Note Text: Report given to H80 Normal [facility] ED NOTE HNO ID: [id number] Author: PASTORA MADERA RN Service: ? Author Type: Registered Nurse Type: ED Notes Filed: 08/07/2023 17:07 Note Text: Report attempted x1. Call back # given Normal [facility] ED NOTE HNO ID: [id number] Author: ESTEFANI WHITE CT Service: Emergency Medicine Author Type: Clinical Oil Pipe Inspector Helper Type: ED Notes Filed: 08/07/2023 09:32 Note Text: EKG complete Normal [facility] ED PROV NOTEon 08-07-2023 ED PROV NOTE Normal [facility] HISTORY PHYSICALon HISTORY PHYSICAL Normal [facility] Lactate (Bld) [Moles/Vol]on 08-07-2023 Lactate [Moles/Vol] 0.8 mmol/L Normal 0.5-2.2 [facility] Comment on above: Order Comment: Speci men Type: BLOOD SPECIMENOrdering Facility: [facility] Address: [address] [place] [address] Performed By: #### 3 2693-4 ####[facility] LABIA [id number] [place] [address] [place] Lipase SerPl-cCncon 08-07-19 24 Lipase [Catalytic activity/Vol] 45 U/L Normal 16-61 [facility] Comment on above: Order Comment: Speci men Type: BLOOD SPECIMENOrdering Facility: [facility] Address: [address] [place] [address] Performed By: #### 2 4323-8, 3040-3, 12182-2 ####[facility] LABCLIA [id number] [place] [address] [place] Magnesium SerPl-mCncon 08-06 Magnesium [Mass/Vol] 1.9 mg/dL Normal 1.7-2.3 [facility] Comment on above: Order Comment: Speci men Type: BLOOD SPECIMENOrdering Facility: [facility] Address: [address] [place] [address] Performed By: #### 2 4323-8, 3040-3, 83222-6 ####[facility] LABCLIA [id number] [place] [address] [place] Retics #on 08-07-2023 Reticulocytes (Bld) [#/Vol] 0.52876 10*3/uL Normal 0.018-0.100 [facility] Comment on above: Order Comment: Speci men Type: BLOOD SPECIMENOrdering Facility: [facility] Address: [address] [place] [address] Performed By: #### 5 7021-8, 58588-7 ####[facility] LABIA [id number] [place] [address] [place] Reticulocytes (Bld) [#/Vol]o n 08-07-2023 Reticulocytes/100 RBC (Bld) 1.6 % Normal 0.4-2.0 [facility] Comment on above: Order Comment: Speci men Type: BLOOD SPECIMENOrdering Facility: [facility] Address: [address] [place] [address] Performed By: #### 5 7021-8, 33963-1 ####[facility] LABIA [id number] [place] [address] [place] STREPTOCOCCUS PNEUMONIAE ANT IGEN URINEon 08-07-2023 STREPTOCOCCUS PNEUMONIAE ANTIGEN URINE Normal [facility] Comment on above: Performed By: #### S PNAG ####[facility] LABCLIA [id number] [place] [address] [place] XR CHEST 2V FRONTAL/LATon XR CHEST 2V FRONTAL/LAT Normal [facility] CASE MANAGEMon 08-06-2023 CASE MANAGEM Normal [facility] CNDSon 08-06-2023 CNDS Normal [facility] CONSULT PROGon 08-06-2023 CONSULT PROG Normal [facility] Magnesium SerPl-mCncon 08-05 Magnesium [Mass/Vol] 1.8 mg/dL Normal 1.7-2.3 [facility] Comment on above: Order Comment: Speci men Type: BLOOD SPECIMENOrdering Facility: [facility] Address: [address] [place] [address] Performed By: #### 1 9123-9, 18018-2 ####[facility] LABORATORYCLIA [id number] [place] [address] [place] NURSING PROGon 08-06-2023 NURSING PROG [facility] NUTRITIONon 08-06-2023 NUTRITION Normal [facility] Renal function 2000 panelon 08-06-2023 Albumin [Mass/Vol] 3.5 g/dL Low 3.9-4.9 [facility] Comment on above: Order Comment: Speci men Type: BLOOD SPECIMENOrdering Facility: [facility] Address: [address] [place] [address] Performed By: #### 1 9123-9, 77606-1 ####[facility] LABORATORYCLIA [id number] [place] [address] [place] Anion gap [Moles/Vol] 10 mmol/L Normal 8-15 [facility] Comment on above: Order Comment: Speci men Type: BLOOD SPECIMENOrdering Facility: [facility] Address: [address] [place] [address] Performed By: #### 1 9123-9, 67011-8 ####[facility] LABORATORYCLIA [id number] [place] [address] [place] Calcium [Mass/Vol] 8.2 mg/dL Low 8.5-10.2 [facility] Comment on above: Order Comment: Speci men Type: BLOOD SPECIMENOrdering Facility: [facility] Address: [address] [place] [address] Performed By: #### 1 9123-9, 85566-8 ####[facility] LABORATORYCLIA [id number] [place] [address] [place] Chloride [Moles/Vol] 106 mmol/L Normal 98-107 [facility] Comment on above: Order Comment: Speci men Type: BLOOD SPECIMENOrdering Facility: [facility] Address: [address] [place] [address] Performed By: #### 1 9123-9, 83385-5 ####[facility] LABORATORYCLIA [id number] [place] [address] [place] CO2 [Moles/Vol] 23 mmol/L Normal 22-30 [facility] Comment on above: Order Comment: Speci men Type: BLOOD SPECIMENOrdering Facility: [facility] Address: [address] [place] [address] Performed By: #### 1 9123-9, 02422-9 ####[facility] LABORATORYCLIA [id number] [place] [address] [place] Creatinine [Mass/Vol] 0.71 mg/dL Normal 0.58-0.96 [facility] Comment on above: Order Comment: Speci men Type: BLOOD SPECIMENOrdering Facility: [facility] Address: [address] [place] [address] Performed By: #### 1 9123-9, 95517-7 ####[facility] LABORATORYCLIA [id number] [place] [address] [place] Creatinine and Glomerular filtration rate.predicted panel (S/P/Bld) 115 mL/min/1.73m??? Normal >=60 [facility] l Comment on above: Order Comment: Speci men Type: BLOOD SPECIMENOrdering Facility: [facility] Address: [address] [place] [address] Result Comment: Jessica mated Glomerular Filtration Rate [...] actual GFR. Performed By: #### 1 9123-9, 94142-6 ####[facility] LABORATORYCLIA [id number] [place] [address] [place] Glucose [Mass/Vol] 106 mg/dL High 74-99 [facility] Comment on above: Order Comment: Geraldo marrero Type: BLOOD SPECIMENOrdering Facility: [facility] Address: [address] [place] [address] Result Comment: The [place] [employer] (ADA) provides guidance for cutoff [...] Standards of Medical Care in Diabetes 2016, [place] [employer]. Diabetes Care. 2016.39(Suppl 1). Performed By: #### 1 9123-9, 57994-3 ####[facility] LABORATORYCLIA [id number] [place] [address] [place] Phosphate [Mass/Vol] 4.2 mg/dL Normal 2.7-4.8 [facility] Comment on above: Order Comment: Geraldo marrero Type: BLOOD SPECIMENOrdering Facility: [facility] Address: [address] [place] [address] Performed By: #### 1 9123-9, 06209-1 ####[facility] LABORATORYCLIA [id number] [place] [address] [place] Potassium [Moles/Vol] 3.8 mmol/L Normal 3.7-5.1 [facility] Comment on above: Order Comment: Speci men Type: BLOOD SPECIMENOrdering Facility: [facility] Address: [address] [place] [address] Performed By: #### 1 9123-9, 94010-5 ####[facility] LABORATORYCLIA [id number] [facility] [place] [address] [place] Sodium [Moles/Vol] 139 mmol/L Normal 136-144 [facility] Comment on above: Order Comment: Speci men Type: BLOOD SPECIMENOrdering Facility: [facility] Address: [address] [place] [address] Performed By: #### 1 9123-9, 31252-2 ####[facility] LABORATORYCLIA [id number] [facility] [place] [address] [place] Urea nitrogen [Mass/Vol] 12 mg/dL Normal 7-21 [facility] Comment on above: Order Comment: Speci men Type: BLOOD SPECIMENOrdering Facility: [facility] Address: [address] [place] [address] Performed By: #### 1 9123-9, 91685-2 ####[facility] LABORATORYCLIA [id number] [facility] [place] [address] [place] ALLIED HEALTHon 08-05-2023 ALLIED HEALTH Normal [facility] CASE MGT INIT [facility] 2023 CASE MGT INIT ASSES [facility] CONSULTon 08-05-2023 CONSULT Normal [facility] NUTRITIONon 08-05-2023 NUTRITION Normal [facility] CBC W Auto Differential pane l (Bld)on 08-04-2023 Basophils (Bld) [#/Vol] 0.04 10*3/uL Normal <0.11 [facility] Comment on above: Order Comment: Speci men Type: BLOOD SPECIMENOrdering Facility: [facility] Address: [address] [place] [address] Performed By: #### 5 7021-8 ####[facility] LABORATORYCLIA [id number] [facility] [place] [address] [place] Basophils/100 WBC (Bld) 0.5 % Normal [facility] Comment on above: Order Comment: Speci men Type: BLOOD SPECIMENOrdering Facility: [facility] Address: [address] [place] [address] Performed By: #### 5 7021-8 ####[facility] LABORATORYIA [id number] [place] [address] [place] Differential cell count method Nom (Bld) Auto Normal [facility] Comment on above: Order Comment: Speci men Type: BLOOD SPECIMENOrdering Facility: [facility] Address: [address] [place] [address] Performed By: #### 5 7021-8 ####[facility] LABORATORYIA [id number] [place] [address] [place] Eosinophils (Bld) [#/Vol] 0.05 10*3/uL Normal <0.46 [facility] Comment on above: Order Comment: Speci men Type: BLOOD SPECIMENOrdering Facility: [facility] Address: [address] [place] [address] Performed By: #### 5 7021-8 ####[facility] CENTERIA [id number] [place] [address] [place] Eosinophils/100 WBC (Bld) 0.6 % Normal [facility] Comment on above: Order Comment: Speci men Type: BLOOD SPECIMENOrdering Facility: [facility] Address: [address] [place] [address] Performed By: #### 5 7021-8 ####[facility] LABORATORYIA [id number] [place] [address] [place] Erythrocyte distribution width (RBC) [Ratio] 12.8 % Normal 11.5-15.0 [facility] Comment on above: Order Comment: Speci men Type: BLOOD SPECIMENOrdering Facility: [facility] Address: [address] [place] [address] Performed By: #### 5 7021-8 ####[facility] LABORATORYIA [id number] [place] [address] [place] Hematocrit (Bld) [Volume fraction] 36.2 % Normal 36.0-46.0 [facility] Comment on above: Order Comment: Speci men Type: BLOOD SPECIMENOrdering Facility: [facility] Address: [address] [place] [address] Performed By: #### 5 7021-8 ####[facility] LABORATORYCLIA [id number] [place] [address] [place] Hemoglobin (Bld) [Mass/Vol] 12.0 g/dL Normal 11.5-15.5 [facility] Comment on above: Order Comment: Speci men Type: BLOOD SPECIMENOrdering Facility: [facility] Address: [address] [place] [address] Performed By: #### 5 7021-8 ####[facility] LABORATORYCLIA [id number] [place] [id number] [place] Immature granulocytes (Bld) [#/Vol] 10*3/uL Normal <0.10 [facility] Comment on above: Order Comment: Speci men Type: BLOOD SPECIMENOrdering Facility: [facility] Address: [address] [place] [address] Performed By: #### 5 7021-8 ####[facility] LABORATORYCLIA [id number] [place] [id number] [place] Immature granulocytes/100 WBC (Bld) 0.2 % Normal [facility] Comment on above: Order Comment: Speci men Type: BLOOD SPECIMENOrdering Facility: [facility] Address: [address] [place] [address] Performed By: #### 5 7021-8 ####[facility] LABORATORYCLIA [id number] [place] [id number] [place] Lymphocytes (Bld) [#/Vol] 1.30 10*3/uL Normal 1.00-4.00 [facility] Comment on above: Order Comment: Speci men Type: BLOOD SPECIMENOrdering Facility: [facility] Address: [address] [place] [address] Performed By: #### 5 7021-8 ####[facility] CENTERIA [id number] [address] [place] Lymphocytes/100 WBC (Bld) 14.9 % Normal [facility] Comment on above: Order Comment: Speci men Type: BLOOD SPECIMENOrdering Facility: [facility] Address: [address] [place] [address] Performed By: #### 5 7021-8 ####[facility] [id number] [address] [place] MCH (RBC) [Entitic mass] 30.1 pg Normal 26.0-34.0 [facility] Comment on above: Order Comment: Speci men Type: BLOOD SPECIMENOrdering Facility: [facility] Address: [address] [place] [address] Performed By: #### 5 7021-8 ####[facility] [id number] [address] [place] MCHC (RBC) [Mass/Vol] 33.1 g/dL Normal 30.5-36.0 [facility] Comment on above: Order Comment: Speci men Type: BLOOD SPECIMENOrdering Facility: [facility] Address: [address] [place] [address] Performed By: #### 5 7021-8 ####[facility] [id number] [address] [place] MCV (RBC) [Entitic vol] 90.7 fL Normal 80.0-100.0 [facility] Comment on above: Order Comment: Speci men Type: BLOOD SPECIMENOrdering Facility: [facility] Address: [address] [place] [address] Performed By: #### 5 7021-8 ####[facility] [id number] [address] [place] Monocytes (Bld) [#/Vol] 0.39 10*3/uL Normal <0.87 [facility] Comment on above: Order Comment: Speci men Type: BLOOD SPECIMENOrdering Facility: [facility] Address: [address] [place] [address] Performed By: #### 5 7021-8 ####[facility] CENTERIA [id number] [place] [address] [place] Monocytes/100 WBC (Bld) 4.5 % Normal [facility] Comment on above: Order Comment: Speci men Type: BLOOD SPECIMENOrdering Facility: [facility] Address: [address] [place] [address] Performed By: #### 5 7021-8 ####[facility] LABORATORYCLIA [id number] [place] [id number] [place] Neutrophils (Bld) [#/Vol] 6.91 10*3/uL Normal 1.45-7.50 [facility] Comment on above: Order Comment: Speci men Type: BLOOD SPECIMENOrdering Facility: [facility] Address: [address] [place] [address] Performed By: #### 5 7021-8 ####[facility]ENTERIA [id number] [place] [id number] [place] Neutrophils/100 WBC (Bld) 79.3 % Normal [facility] Comment on above: Order Comment: Speci men Type: BLOOD SPECIMENOrdering Facility: [facility] Address: [address] [place] [address] Performed By: #### 5 7021-8 ####[facility] LABORATORYIA [id number] [facility] [place] [address] [place] Nucleated RBC (Bld) [#/Vol] 10*3/uL Normal <0.01 [facility] Comment on above: Order Comment: Speci men Type: BLOOD SPECIMENOrdering Facility: [facility] Address: [address] [place] [address] Performed By: #### 5 7021-8 ####[facility] LABORATORYCLIA [id number] [facility] [place] [address] [place] Nucleated RBC/100 WBC (Bld) [Ratio] 0.0 /100 WBC Normal [facility] Comment on above: Order Comment: Speci men Type: BLOOD SPECIMENOrdering Facility: [facility] Address: [address] [place] [address] Performed By: #### 5 7021-8 ####[facility] CENTERIA [id number] [place] [address] [place] Platelet mean volume (Bld) [Entitic vol] 10.5 fL Normal 9.0-12.7 [facility] Comment on above: Order Comment: Speci men Type: BLOOD SPECIMENOrdering Facility: [facility] Address: [address] [place] [address] Performed By: #### 5 7021-8 ####[facility]ENTERIA [id number] [place] [address] [place] Platelets (Bld) [#/Vol] 328 10*3/uL Normal 150-400 [facility] Comment on above: Order Comment: Speci men Type: BLOOD SPECIMENOrdering Facility: [facility] Address: [address] [place] [address] Performed By: #### 5 7021-8 ####[facility] CENTERIA [id number] [place] [address] [place] RBC (Bld) [#/Vol] 3.99 10*6/uL Normal 3.90-5.20 [facility] Comment on above: Order Comment: Speci men Type: BLOOD SPECIMENOrdering Facility: [facility] Address: [address] [place] [address] Performed By: #### 5 7021-8 ####[facility] LABORATORYIA [id number] [place] [address] [place] WBC (Bld) [#/Vol] 8.71 10*3/uL Normal 3.70-11.00 [facility] Comment on above: Order Comment: Speci men Type: BLOOD SPECIMENOrdering Facility: [facility] Address: [address] [place] [address] Performed By: #### 5 7021-8 ####[facility] LABORATORYCLIA [id number] [facility] [place] [address] [place] CNOVon 08-04-2023 CNOV Normal [facility] CNPNon 08-04-2023 CNPN Normal [facility] CONSULTon 08-04-2023 CONSULT Normal [facility] CT ABD/PEL W IVCONon 024 CT ABD/PEL W IVCON Normal [facility] BRAIN WO IVCONon 08-04-[address] BRAIN WO IVCON Normal [facility] Comprehensive metabolic 2000 panelon 08-04-2023 Albumin [Mass/Vol] 3.8 g/dL Low 3.9-4.9 [facility] Comment on above: Order Comment: Speci men Type: BLOOD SPECIMENOrdering Facility: [facility] Address: [address] [place] [address] Performed By: #### 2 4323-8, , 0-3 ####[facility] CENTERIA [id number] [facility] [address] [place] ALP [Catalytic activity/Vol] 76 U/L Normal 34-123 [facility] Comment on above: Order Comment: Speci men Type: BLOOD SPECIMENOrdering Facility: [facility] Address: [address] [place] [address] Performed By: #### 2 4323-8, 03537-4, 0-3 ####[facility] CENTERIA [id number] [facility] [place] [address] [place] ALT [Catalytic activity/Vol] Normal [facility] Comment on above: Order Comment: Speci men Type: BLOOD SPECIMENOrdering Facility: [facility] Address: [address] [place] [address] Result Comment: Unab le to assay due to interference from hemolysis. Suggest reorder as clinically indicated. Performed By: #### 2 4323-8, 47307-1, 0-3 ####[facility] LABORATORYIA [id number] [place] [address] [place] Anion gap [Moles/Vol] 10 mmol/L Normal 8-15 [facility] Comment on above: Order Comment: Speci men Type: BLOOD SPECIMENOrdering Facility: [facility] Address: [address] [place] [address] Performed By: #### 2 4323-8, 55537-7, 3039-3 ####[facility] LABORATORYCLIA [id number] [place] [address] [place] AST [Catalytic activity/Vol] Normal [facility] Comment on above: Order Comment: Speci men Type: BLOOD SPECIMENOrdering Facility: [facility] Address: [address] [place] [address] Result Comment: Unab le to assay due to interference from hemolysis. Suggest reorder as clinically indicated. Performed By: #### 2 4323-8, , 3039-3 ####[facility] LABORATORYCLIA [id number] [place] [address] [place] Bilirubin [Mass/Vol] 0.3 mg/dL Normal 0.2-1.3 [facility] Comment on above: Order Comment: Speci men Type: BLOOD SPECIMENOrdering Facility: [facility] Address: [address] [place] [address] Performed By: #### 2 4323-8, , 3 ####[facility] LABORATORYCLIA [id number] [place] [address] [place] Calcium [Mass/Vol] 8.7 mg/dL Normal 8.5-10.2 [facility] Comment on above: Order Comment: Speci men Type: BLOOD SPECIMENOrdering Facility: [facility] Address: [address] [place] [address] Performed By: #### 2 4323-8, , 3 ####[facility] LABORATORYCLIA [id number] [place] [address] [place] Chloride [Moles/Vol] 106 mmol/L Normal 98-107 [facility] Comment on above: Order Comment: Speci men Type: BLOOD SPECIMENOrdering Facility: [facility] Address: [address] [place], [place] [address] Performed By: #### 2 4323-8, 54660-7, 3 ####[facility] LABORATORYCLIA [id number] [place] [address] [place] CO2 [Moles/Vol] 23 mmol/L Normal 22-30 [facility] Comment on above: Order Comment: Speci men Type: BLOOD SPECIMENOrdering Facility: [facility] Address: [address] [place] [address] Performed By: #### 2 4323-8, , 3 ####[facility] LABORATORYCLIA [id number] [place] [address] [place] Creatinine [Mass/Vol] 0.71 mg/dL Normal 0.58-0.96 [facility] Comment on above: Order Comment: Speci men Type: BLOOD SPECIMENOrdering Facility: [facility] Address: [address] [place] [address] Performed By: #### 2 4323-8, , 3 ####[facility]ENTERIA [id number] [place] [address] [place] Creatinine and Glomerular filtration rate.predicted panel (S/P/Bld) 115 mL/min/1.73m??? Normal >=60 [facility] Comment on above: Order Comment: Speci men Type: BLOOD SPECIMENOrdering Facility: [facility] Address: [address] [place] [address] Result Comment: Jessica mated Glomerular Filtration Rate [...] actual GFR. Performed By: #### 2 4323-8, 62819-4, 3039-3 ####[facility] LABORATORYCLIA [id number] [place] [address] [place] Glucose [Mass/Vol] 82 mg/dL Normal 74-99 [facility] Comment on above: Order Comment: Speci men Type: BLOOD SPECIMENOrdering Facility: [facility] Address: [address] [place], [place] [address] Result Comment: The [place] [employer] (ADA) provides guidance for cutoff [...] Standards of Medical Care in Diabetes 2016, [place] [employer]. Diabetes Care. 2016.39(Suppl 1). Performed By: #### 2 4323-8, , 0-3 ####[facility]ENTERIA [id number] [place] [address] [place] Potassium [Moles/Vol] 4.3 mmol/L Normal 3.7-5.1 [facility] Comment on above: Order Comment: Lyssai men Type: BLOOD SPECIMENOrdering Facility: [facility] Address: [address] [place] [address] Performed By: #### 2 4323-8, , 3039-3 ####[facility]ENTERIA [id number] [place] [address] [place] Protein [Mass/Vol] 6.8 g/dL Normal 6.3-8.0 [facility] Comment on above: Order Comment: Speci men Type: BLOOD SPECIMENOrdering Facility: [facility] Address: [address] [place], [place] [address] Performed By: #### 2 4323-8, , 0-3 ####[facility] LABORATORYCLIA [id number] [facility] [address] [place] Sodium [Moles/Vol] 139 mmol/L Normal 136-144 [facility] Comment on above: Order Comment: Speci men Type: BLOOD SPECIMENOrdering Facility: [facility] Address: [address] [place], [place] [address] Performed By: #### 2 4323-8, 83683-1, 3040-3 ####[facility] LABORATORYCLIA [id number] [place] [address] [place] Urea nitrogen [Mass/Vol] 6 mg/dL Low 7-21 [facility] Comment on above: Order Comment: Speci men Type: BLOOD SPECIMENOrdering Facility: [facility] Address: [address] [place], [place] [address] Performed By: #### 2 4323-8, 83385-7, 3040-3 ####[facility] LABORATORYCLIA [id number] [facility] [place] [address] [place] ECG COMPLETEon 08-04-2023 ECG COMPLETE Normal [facility] ED NOTEon 08-04-2023 ED NOTE HNO ID: [id number] Author: ANAM NAILS RN Service: Emergency Medicine Author Type: Registered Nurse Type: ED Notes Filed: 08/04/2023 14:44 Note Text: Pt remains unable to provide urine sample at this time. Normal [facility] ED NOTE HNO ID: [id number] Author: ANAM NAILS RN Service: Emergency Medicine Author Type: Registered Nurse Type: ED Notes Filed: 08/04/2023 14:43 Note Text: Pt unable to provide urine sample at this time. Normal [facility] ED NOTE HNO ID: [id number] Author: CORIE BILLINGSLEY, Efrem Service: ? 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 Pt had had multiple episodes of diarrhea as well. Normal [facility] ED PROV NOTEon 08-04-2023 ED PROV NOTE Normal [facility] HIGH SENSITIVITY TROPONIN T (INITIAL)on 08-04-2023 Troponin T.cardiac High sensitivity method [Mass/Vol] <6 Normal <12 [facility] Comment on above: Order Comment: Geraldo marrero Type: BLOOD SPECIMENOrdering Facility: [facility] Address: [address] [place] [address] Result Comment: When assessing risk for acute [...] 30 day MACE. Performed By: #### L [id number] ####[facility] LABORATORYCLIA [id number] [address] [place] HIGH SENSITIVITY TROPONIN T (SECOND)on 08-04-2023 Troponin T.cardiac High sensitivity method [Mass/Vol] <6 Normal <12 [facility] Comment on above: Order Comment: Geraldo marrero Type: BLOOD SPECIMENOrdering Facility: [facility] Address: [address] [place] [address] Result Comment: When assessing risk for acute [...] 30 day MACE. Performed By: #### L [id number] ####[facility] LABORATORYCLIA [id number] [place] [address] [place] HISTORY PHYSICALon 4 HISTORY PHYSICAL Normal [facility] pital Lipase SerPl-cCncon 08-04-19 24 Lipase [Catalytic activity/Vol] 52 U/L Normal 16-61 [facility] Comment on above: Order Comment: Geraldo marrero Type: BLOOD SPECIMENOrdering Facility: [facility] Address: [address] [place] [address] Performed By: #### 2 4323-8, 41864-2, 3040-3 ####[facility]IA [id number] [place] [address] [place] Magnesium SerPl-mCncon 08-03 Magnesium [Mass/Vol] 1.9 mg/dL Normal 1.7-2.3 [facility] Comment on above: Order Comment: Speci men Type: BLOOD SPECIMENOrdering Facility: [facility] Address: [address] [place] [address] Performed By: #### 2 4323-8, 57927-1, 3040-3 ####[facility]ENTERIA [id number] [place] [address] [place] SEPSIS LACTATE W/ REFLEX (IN ITIAL)on 08-04-2023 Lactate [Moles/Vol] 1.5 mmol/L Normal 0.0-2.0 [facility] Comment on above: Order Comment: Speci men Type: BLOOD SPECIMENOrdering Facility: [facility] Address: [address] [place] [address] Performed By: #### S LACTR ####[facility] [id number] [place] [address] [place] Urinalysis complete panel (U )on 08-04-2023 Bilirubin Ql (U) Negative Normal Negative [facility] Comment on above: Order Comment: Speci men Type: URINE SPECIMENOrdering Facility: [facility] Address: [address] [place] [address] Performed By: #### 2 4356-8 ####[facility] [id number] [place] [address] [place] Clarity (Unsp spec) Clear Normal Clear [facility] Comment on above: Order Comment: Speci men Type: URINE SPECIMENOrdering Facility: [facility] Address: [address] [place] [address] Performed By: #### 2 4356-8 ####[facility]IA [id number] [place] [address] [place] Color (U) Yellow Normal Yellow [facility] Comment on above: Order Comment: Speci men Type: URINE SPECIMENOrdering Facility: [facility] Address: [address] [place] [address] Performed By: #### 2 4356-8 ####[facility] [id number] [place] [address] [place] Glucose Test strip (U) [Mass/Vol] Negative Normal Trace, Negative [facility] Comment on above: Order Comment: Speci men Type: URINE SPECIMENOrdering Facility: [facility] Address: [address] [place] [address] Performed By: #### 2 4356-8 ####[facility] [id number] [place] [address] [place] Hemoglobin Ql (U) Negative Normal Negative, Trace [facility] Comment on above: Order Comment: Speci men Type: URINE SPECIMENOrdering Facility: [facility] Address: [address] [place] [address] Performed By: #### 2 4356-8 ####[facility] [id number] [place] [address] [place] Ketones Ql (U) Negative Normal Negative, Trace [facility] Comment on above: Order Comment: Speci men Type: URINE SPECIMENOrdering Facility: [facility] Address: [address] [place] [address] Performed By: #### 2 4356-8 ####[facility]IA [id number] [place] [place] [address] [place] Leukocyte esterase Test strip Ql (U) Negative Normal Negative, 25 Patito/uL [facility] Comment on above: Order Comment: Speci men Type: URINE SPECIMENOrdering Facility: [facility] Address: [address] [place] [address] Performed By: #### 2 4356-8 ####[facility] [id number] [place] [address] [place] Nitrite Ql (U) Negative Normal Negative [facility] Comment on above: Order Comment: Speci men Type: URINE SPECIMENOrdering Facility: [facility] Address: [address] [place] [address] Performed By: #### 2 4356-8 ####[facility] [id number] [place] [address] [place] pH (U) 7.5 [pH] Normal 5.0-8.0 [facility] Comment on above: Order Comment: Speci men Type: URINE SPECIMENOrdering Facility: [facility] Address: [address] [place] [address] Performed By: #### 2 4356-8 ####[facility] [id number] [place] [id number] [place] Protein (U) [Mass/Vol] Trace Normal Trace, Negative [facility] Comment on above: Order Comment: Speci men Type: URINE SPECIMENOrdering Facility: [facility] Address: [address] [place] [address] Performed By: #### 2 4356-8 ####[facility] [id number] [place] [address] [place] RBC LM.HPF (Urine sed) [#/Area] 0-3 /HPF Normal 0-3 /HPF [facility] Comment on above: Order Comment: Speci men Type: URINE SPECIMENOrdering Facility: [facility] Address: [address] [place] [address] Performed By: #### 2 4356-8 ####[facility] [id number] [place] [address] [place] Specific gravity (U) [Rel density] <1.005 Low 1.005-1.030 [facility] Comment on above: Order Comment: Speci men Type: URINE SPECIMENOrdering Facility: [facility] Address: [address] [place] [address] Performed By: #### 2 4356-8 ####[facility] [id number] [place] [address] [place] Urobilinogen Ql (U) Normal Normal Normal [facility] Comment on above: Order Comment: Speci men Type: URINE SPECIMENOrdering Facility: [facility] Address: [address] [place] [address] Performed By: #### 2 4356-8 ####[facility]ORATORYCLIA [id number] [place] [address] [place] WBC LM.HPF (Urine sed) [#/Area] 0-5 /HPF Normal 0-5 /HPF [facility] Comment on above: Order Comment: Speci men Type: URINE SPECIMENOrdering Facility: [facility] Address: [address] [place], [place] [address] Performed By: #### 2 4356-8 ####[facility]ORATORYCLIA [id number] [place] [address] [place] XR CHEST 1V FRONTAL PORTon 0 08-04-2023 XR CHEST 1V FRONTAL PORT Normal [facility] Activated partial thrombopla stin time (aPTT) in platelet poor plasma by coagulation aOrdered By: Jeramy Cunningham on 07-31-2023 aPTT Coag (PPP) [Time] 27.0 s 25.1-36.5 [facility] Comment on above: A hematocrit value g reater than 55% may lead to inaccurate results in coagulation testing. Patients having hematocrit values >55% require a special collection tube for coagulation studies. Please contact the laboratory at [phone] for redraw instructions. Alanine aminotransferase [En zymatic activity/volume] in Serum or PlasmaOrdered By: Jeramy Cunningham on 07-31-2023 ALT [Catalytic activity/Vol] 29 U/L Normal 7-52 [facility] Comment on above: Performed By: #### A DDONUAPLUS, UHCG, CUU #### [facility] [address] Albumin [Mass/volume] in Ser um or Plasma by Bromocresol green (BCG) dye binding methoOrdered By: Jeramy Cunningham on 07-31-2023 Albumin BCG dye [Mass/Vol] 4.0 g/dL 3.5-5.7 [facility] Alkaline phosphatase [Enzyma tic activity/volume] in Serum or PlasmaOrdered By: Jeramy Cunningham on 07-31-2023 ALP [Catalytic activity/Vol] 58 U/L Normal 34-104 [facility] Comment on above: Performed By: #### A ALIYAH RAYG, CUU #### [address] Aspartate aminotransferase [ Enzymatic activity/volume] in Serum or PlasmaOrdered By: Jeramy Cunningham on 07-31-2023 AST [Catalytic activity/Vol] 34 U/L Normal 13-39 [facility] Comment on above: Performed By: #### A CORY ELIS, CUU #### [address] Automated basophil %Ordered By: Jeramy Cunningham on 07-31-2023 Basophils/100 WBC (Bld) 0.6 % Normal . [facility] Comment on above: Performed By: #### A CORY ELIS, CUU #### [address] Automated basophil countOrde red By: Jeramy Cunningham on 07-31-2023 Basophils (Bld) [#/Vol] 0.0 10*3/uL Normal 0.0-0.2 [facility] Comment on above: Result Comment: PERF ORMED BY: [place] [address] PATHOLOGIST AUTO WINDER BAUTISTA BAKER M.D. Performed By: #### A CORY, [facility]ITALJarrod, CUU #### [address] Automated blood monocyte cou ntOrdered By: Jeramy Cunningham on 07-31-2023 Monocytes (Bld) [#/Vol] 0.2 10*3/uL Normal 0.0-0.8 [facility] Comment on above: Performed By: #### A CORY, ElroyG, CUU #### [address] Automated eosinophil %Ordere d By: Jeramy Cunningham on 07-31-2023 Eosinophils/100 WBC (Bld) 0.2 % Normal . [facility] Comment on above: Performed By: #### A JOSESITO RAY, CUU #### [address] Automated eosinophil countOr dered By: Jeramy Cunningham on 07-31-2023 Eosinophils (Bld) [#/Vol] 0.0 10*3/uL Normal 0.0-0.45 [facility] Comment on above: Performed By: #### A JOSESITO RAY, CUU #### [address] Automated monocyte %Ordered By: Jeramy Cunningham on 07-31-2023 Monocytes/100 WBC (Bld) 3.1 % Normal . [facility] Comment on above: Performed By: #### A JOSESITO RAY, CUU #### [address] Automated neutrophil %Ordere d By: Jeramy Cunningham on 07-31-2023 Neutrophils/100 WBC (Bld) 84.9 % Normal . [facility] Comment on above: Performed By: #### A JOSESITO RAY, CUU #### [address] Basic Metabolic Panelon 07-16 Creatinine Clr Calc Pharmacy 120.10 Normal [facility] Comment on above: Performed By: #### H EPATIC, MG, LIPASE, CMP, CBC #### [address] GFR/1.73 sq M.predicted MDRD (S/P/Bld) [Vol rate/Area] mL/min/{1.73_m2} Normal [facility] Comment on above: Performed By: #### H EPATIC, MG, LIPASE, CMP, CBC #### [address] Bilirubin Test strip Ql (U)O rdered By: Jeramy Cunningham on 07-31-2023 Bilirubin Ql (U) Negative Negative [facility] Bilirubin.direct [Mass/volum e] in Serum or PlasmaOrdered By: Jeramy Cunningham on 07-31-2023 Bilirubin.direct [Mass/Vol] 0.10 mg/dL 0.03-0.18 [facility] Bilirubin.total [Mass/volume ] in Serum or PlasmaOrdered By: Jeramy Cunningham on 07-31-2023 Bilirubin [Mass/Vol] 0.4 mg/dL Normal 0.3-1.0 [facility] Comment on above: Performed By: #### A DDONUAPLUS, UHCG, CUU #### [facility] [address] abdomen pelvis w conon CT abdomen pelvis w con [facility] [address] [place] [address] [place] [address] CT Scan Report Signed Patient: Abbey Garcia MR#: [id number] : 1990 Acct:[id number] Age/Sex: 33 / F ADM Date: 07/31/23 Loc: ER Room: Type: [facility] ER Attending Dr: Copies to: Jeramy [...] Jason Palomo M.D.07/31/2023 12:28 PM Dictation Location: [place] [address] Transcribed By: [facility] 07/31/23 1228 Dictated By: Jason Palomo DO 07/31/23 1223 Signed By: 07/31/23 1228 Normal [facility] Calcium [Mass/volume] in Ser um or PlasmaOrdered By: Jeramy Cunningham on 07-31-2023 Calcium [Mass/Vol] 8.5 mg/dL Low 8.6-10.3 [facility] Comment on above: Performed By: #### H EPATIC, MG, LIPASE, CMP, CBC #### [facility] [address] Carbon dioxide, total [Moles /volume] in Serum or PlasmaOrdered By: Jeramy Cunningham on 07-31-2023 CO2 [Moles/Vol] 26.1 mmol/L Normal 21.0-31.0 [facility] Comment on above: Performed By: #### H EPATIC, MG, LIPASE, CMP, CBC #### [facility] [address] [place] [address] [place] Chloride [Moles/volume] in S elder or PlasmaOrdered By: Jeramy Cunningham on 07-31-2023 Chloride [Moles/Vol] 107 mmol/L Normal 98-107 [facility] Comment on above: Performed By: #### H EPATIC, MG, LIPASE, CMP, CBC #### [facility] [address] [place] [id number] [place] Color of Urine by AutoOrdere d By: Jeramy Cunningham on 07-31-2023 Color (U) Colorless Normal Yellow [facility] Comment on above: Order Comment: Name Collection Type:: Clean-Voided Midstream Performed By: #### H EPATIC, MG, LIPASE, CMP, CBC #### [address] Complete Blood Count Auto Di ffon 07-31-2023 Mean Corpuscular HGB Conc 33.8 g/dL Normal 32.0-35.0 [facility] Comment on above: Performed By: #### A JOSESITO RAY, CUU #### [address] Monocytes/100 WBC (Bld) 14.62 % Normal 0.00-20.00 [facility] Comment on above: Performed By: #### A JOSESITO RAY, CUU #### [address] NRBC% 0.1 /100{WBC} Normal 0-0.5 [facility] Comment on above: Performed By: #### A JOSESITO RAY, CUU #### [address] Creatinine [Mass/volume] in Serum or PlasmaOrdered By: Jeramy Cunningham on 07-31-2023 Creatinine [Mass/Vol] 0.70 mg/dL Normal 0.60-1.20 [facility] Comment on above: Performed By: #### H EPATIC, MG, LIPASE, CMP, CBC #### [address] Erythrocyte distribution wid th [Ratio] by Automated countOrdered By: Jeramy Cunningham on 07-31-2023 Erythrocyte distribution width (RBC) [Ratio] 14.2 % Normal 11.9-15.3 [facility] Comment on above: Performed By: #### A JOSESITO RAY, CUU #### [address] Erythrocytes [#/volume] in B lood by Automated countOrdered By: Jeramy Cunningham on 07-31-2023 RBC (Bld) [#/Vol] 3.75 10*6/uL Normal 3.60-5.00 [facility] Comment on above: Performed By: #### A DDONUAPLUS, UHCG, CUU #### [facility] [address] [place] [address] [place] Glucose [Mass/volume] in Ser um or PlasmaOrdered By: Jeramy Cunningham on 07-31-2023 Glucose [Mass/Vol] 91 mg/dL Normal 70-100 [facility] Comment on above: ADA recommended refe rence rangeRandom Glucose Reference Range is dependent on time and content of last meal. Glucose of more than 200 mg/dL in a nonstressed, ambulatory subject supports the diagnosis of Diabetes Mellitus. Result Comment: [place] om Glucose Reference Range is dependent on time and content of last meal. Glucose of more than 200 mg/dL in a nonstressed, ambulatory subject supports the diagnosis of Diabetes Mellitus. ADA recommended reference range Performed By: #### H EPATIC, MG, LIPASE, CMP, CBC #### [facility] [address] [place] [id number] [place] Glucose [Mass/volume] in Uri ne by Test stripOrdered By: Jeramy Cunningham on 07-31-2023 Glucose Test strip (U) [Mass/Vol] Normal mg/dL Normal [facility] HCG ( test) [place].rapi d Ql (U)Ordered By: Jeramy Cunningham on 07-31-2023 HCG ( test) Ql (U) Negative [facility] HCG,Urineon 07-31-2023 Beta HCG ( test) Ql (U) Negative Normal [facility] Comment on above: Order Comment: Name Collection Type:: Clean-Voided Midstream Result Comment: PERF ORMED BY: [place] [address] PATHOLOGIST AUTO WINDER BAUTISTA BAKER M.D. Performed By: #### H EPATIC, MG, LIPASE, CMP, CBC #### [facility] [address] [place] [address] [facility] Hematocrit [Volume Fraction] of Blood by Automated countOrdered By: Jeramy Cunningham on 07-31-2023 Hematocrit (Bld) [Volume fraction] 33.2 % Low 34.0-46.4 [facility] Comment on above: Performed By: #### A JOSESITO RAY, CUU #### [address] Hemoglobin Test strip Ql (U) Ordered By: Jeramy Cunningham on 07-31-2023 Hemoglobin Ql (U) Negative Negative [facility] Hemoglobin [Mass/volume] in BloodOrdered By: Jeramy Cunningham on 07-31-2023 Hemoglobin (Bld) [Mass/Vol] 11.2 g/dL Low 11.8-15.4 [facility] Comment on above: Performed By: #### A JOSESITO RAY, CUU #### [address] Hepatic Panelon 07-31-2023 Albumin [Mass/Vol] 4.0 g/dL Normal 3.5-5.7 [facility] Comment on above: Performed By: #### A JOSESITO RAY, CUU #### [address] Bilirubin,Indirect 0.3 mg/dL Normal [facility] Comment on above: Performed By: #### A ALIYAH RAYG, CUU #### [address] Bilirubin.indirect [Mass/Vol] 0.10 mg/dL Normal 0.03-0.18 [facility] Comment on above: Performed By: #### A CORY, ALIYAHG, CUU #### [address] INR in Platelet poor plasma by Coagulation assayOrdered By: Jeramy Cunningham on 07-31-2023 INR Coag (PPP) [Relative time] 1.1 {INR} Normal [facility] Comment on above: INR Therapeutic Rang [...] valves: 3 - 4.5 Performed By: #### H EPATIC, MG, LIPASE, CMP, CBC #### [place] [address] [place] Ketones [Presence] in Urine by Test stripOrdered By: Jeramy Cunningham on 07-31-2023 Ketones Ql (U) Negative Normal Negative [facility] Comment on above: Order Comment: Name Collection Type:: Clean-Voided Midstream Performed By: #### H EPATIC, MG, LIPASE, CMP, CBC #### [place] [address] [place] Leukocyte esterase [Presence ] in Urine by Test stripOrdered By: Jeramy Cunningham on 07-31-2023 Leukocyte esterase Test strip Ql (U) Negative Normal Negative [facility] Comment on above: Order Comment: Name Collection Type:: Clean-Voided Midstream Performed By: #### H EPATIC, MG, LIPASE, CMP, CBC #### [facility] [address] [place] [address] Leukocytes [#/volume] correc darvin for nucleated erythrocytes in Blood by Automated counOrdered By: Jeramy Cunningham on 07-31-2023 WBC corrected for nucl RBC Auto (Bld) [#/Vol] 7.7 10*3/uL 3.8-11.6 [facility] Leukocytes [#/volume] in Blo od by Automated countOrdered By: Jeramy Cunningham on 07-31-2023 WBC (Bld) [#/Vol] 7.7 10*3/uL Normal 3.8-11.6 [facility] Comment on above: Performed By: #### A DDONUAPLUS, UHCG, CUU #### [address] Lipase [Enzymatic activity/v olume] in Serum or PlasmaOrdered By: Jeramy Cunningham on 07-31-2023 Lipase [Catalytic activity/Vol] 36.0 U/L Normal 11.0-82.0 [facility] Comment on above: Result Comment: PERF ORMED BY: [place] [address] PATHOLOGIST AUTO WINDER BAUTISTA BAKER M.D. Performed By: #### H EPATIC, MG, LIPASE, CMP, CBC #### [address] Lymphocytes [#/volume] in Bl ood by Automated countOrdered By: Jeramy Cunningham on 07-31-2023 Lymphocytes (Bld) [#/Vol] 0.9 10*3/uL Low 1.00-4.8 [facility] Comment on above: Performed By: #### A CORY ELIS, CUU #### [address] Lymphocytes/100 leukocytes i n Blood by Automated countOrdered By: Jeramy Cunningham on 07-31-2023 Lymphocytes/100 WBC (Bld) 11.2 % Normal . [facility] Comment on above: Performed By: #### A JOSESIOT RAY, CUU #### [address] MCH [Entitic mass] by Automa darvin countOrdered By: Jeramy Cunningham on 07-31-2023 MCH (RBC) [Entitic mass] 29.9 pg Normal 24.7-34.3 [facility] Comment on above: Performed By: #### A CORY ELIS, CUU #### [address] MCHC Auto (RBC) [Mass/Vol]Or dered By: Jeramy Cunningham on 07-31-2023 MCHC (RBC) [Mass/Vol] 33.8 g/dL 32.0-35.0 [facility] MCV [Entitic volume] by Auto mated countOrdered By: Jeramy Cunningham on 07-31-2023 MCV (RBC) [Entitic vol] 88.6 fL Normal 80-100 [facility] Comment on above: Performed By: #### A CORY, [facility] CUU #### [facility] [address] [place] [address] [place] Monocyte distribution width [Entitic volume] in Blood by AutomatedOrdered By: Jeramy Cunningham on 07-31-2023 Monocyte distribution width Auto (Bld) [Entitic vol] 14.62 % 0.00-20.00 [facility] Neutrophils [#/volume] in Bl ood by Automated countOrdered By: Jeramy Cunningham on 07-31-2023 Neutrophils (Bld) [#/Vol] 6.5 10*3/uL Normal 1.8-7.7 [facility] Comment on above: Performed By: #### A CORY, [facility] CUU #### [facility] [address] [place] [id number] [facility] Nitrite Test strip Ql (U)Ord ered By: Jeramy Cunningham on 07-31-2023 Nitrite Ql (U) Negative Negative [facility] No Panel InformationOrdered By: Jeramy Cunningham on 07-31-2023 Estimated GFR (CKD-EPI) > 60.0 mL/Min [facility] Creatinine Clearance (Chem 120.10 [facility] Nucleated erythrocytes [Pres ence] in Blood by Automated countOrdered By: Jeramy Cunningham on 07-31-2023 Nucleated RBC Auto Ql (Bld) 0.1 /100{WBC} 0-0.5 [facility] Partial Thromboplastin Timeo n 07-31-2023 aPTT Coag (Bld) [Time] 27.0 s Normal 25.1-36.5 [facility] Comment on above: Result Comment: A he matocrit value greater than 55% may lead to inaccurate results in coagulation testing. Patients having hematocrit values >55% require a special collection tube for coagulation studies. Please contact the laboratory at [phone] for redraw instructions. PERFORMED BY: [place] [address] PATHOLOGIST AUTO WINDER BAUTISTA BAKER M.D. Performed By: #### H EPATIC, MG, LIPASE, CMP, CBC #### [address] Platelet mean volume [Entiti c volume] in Blood by Automated countOrdered By: Jeramy Cunningham on 07-31-2023 Platelet mean volume (Bld) [Entitic vol] 8.5 fL Normal 6.3-10.7 [facility] Comment on above: Performed By: #### A DDONUAPLUS, CG, CUU #### [address] Platelets [#/volume] in Bloo d by Automated countOrdered By: Jeramy Cunningham on 07-31-2023 Platelets (Bld) [#/Vol] 276 10*3/uL Normal 150-450 [facility] Comment on above: Performed By: #### A DDONUAPLUS, CG, CUU #### [address] Potassium [Moles/volume] in Serum or PlasmaOrdered By: Jeramy Cunningham on 07-31-2023 Potassium [Moles/Vol] 3.8 mmol/L Normal 3.5-5.1 [facility] Comment on above: Performed By: #### H EPATIC, MG, LIPASE, CMP, CBC #### [address] Protein Test strip (U) [Mass /Vol]Ordered By: Jeramy Cunningham on 07-31-2023 Protein (U) [Mass/Vol] Negative Negative [facility] Protein [Mass/volume] in Ser um or PlasmaOrdered By: Jeramy Cunningham on 07-31-2023 Protein [Mass/Vol] 6.7 g/dL Normal 6.4-8.9 [facility] Comment on above: Performed By: #### A DDONUAPLUS, CG, CUU #### [place] [address] [place] Prothrombin time (PT)Ordered By: Jeramy Cunningham on 07-31-2023 PT Coag (PPP) [Time] 12.3 s Normal 9.0-12.9 [facility] Comment on above: A hematocrit value g reater than 55% may lead to inaccurate results in coagulation testing. Patients having hematocrit values >55% require a special collection tube for coagulation studies. Please contact the laboratory at [phone] for redraw instructions. Result Comment: A he matocrit value greater than 55% may lead to inaccurate results in coagulation testing. Patients having hematocrit values >55% require a special collection tube for coagulation studies. Please contact the laboratory at [phone] for redraw instructions. Performed By: #### H EPATIC, MG, LIPASE, CMP, CBC #### [address] Serum globulin measurement b y calculation (mass/volume)Ordered By: Jeramy Cunningham on 07-31-2023 Globulin (S) [Mass/Vol] 2.7 g/dL Normal [facility] Comment on above: Performed By: #### A DDONUAPLUS, UHCG, CUU #### [address] Serum or plasma albumin/glob ulin mass ratioOrdered By: Jeramy Cunningham on 07-31-2023 Albumin/Globulin [Mass ratio] 1.5 {ratio} Normal [facility] Comment on above: Performed By: #### A DDONUAPLUS, UHCG, CUU #### [address] Serum or plasma anion gap de terminationOrdered By: Jeramy Cunningham on 07-31-2023 Anion gap [Moles/Vol] 10.7 mmol/L Normal 6.0-15.0 [facility] Comment on above: Performed By: #### H EPATIC, MG, LIPASE, CMP, CBC #### [address] Serum or plasma non-glucuron idated bilirubin measurement (mass/volume)Ordered By: Jeramy Cunningham on 07-31-2023 Bilirubin.indirect [Mass/Vol] 0.3 mg/dL [facility] Sodium [Moles/volume] in Ser um or PlasmaOrdered By: Jeramy Cunningham on 07-31-2023 Sodium [Moles/Vol] 140 mmol/L Normal 136-145 [facility] Comment on above: Performed By: #### H EPATIC, MG, LIPASE, CMP, CBC #### [facility] [address] Specific gravity Test strip (U) [Rel density]Ordered By: Jeramy Cunningham on 07-31-2023 Specific gravity (U) [Rel density] 1.006 1.001-1.030 [facility] Urea nitrogen [Mass/volume] in Serum or PlasmaOrdered By: Jeramy Cunningham on 07-31-2023 Urea nitrogen [Mass/Vol] 16 mg/dL Normal 7-25 [facility] Comment on above: Performed By: #### H EPATIC, MG, LIPASE, CMP, CBC #### [address] Urinalysison 07-31-2023 Bilirubin,Urine Negative Normal Negative [facility] Comment on above: Order Comment: Name Collection Type:: Clean-Voided Midstream Performed By: #### H EPATIC, MG, LIPASE, CMP, CBC #### [address] Glucose Ql (U) Normal Normal Normal [facility] Comment on above: Order Comment: Name Collection Type:: Clean-Voided Midstream Performed By: #### H EPATIC, MG, LIPASE, CMP, CBC #### [address] Nitrite,Urine Negative Normal Negative [facility] Comment on above: Order Comment: Name Collection Type:: Clean-Voided Midstream Performed By: #### H EPATIC, MG, LIPASE, CMP, CBC #### [address] Occult Blood,Urine Negative Normal Negative [facility] Comment on above: Order Comment: Name Collection Type:: Clean-Voided Midstream Performed By: #### H EPATIC, MG, LIPASE, CMP, CBC #### [address] Protein,Urine Negative Normal Negative [facility] Comment on above: Order Comment: Name Collection Type:: Clean-Voided Midstream Performed By: #### H EPATIC, MG, LIPASE, CMP, CBC #### [address] Specificy [place],Urine 1.006 Normal 1.001-1.030 [facility] Comment on above: Order Comment: Name Collection Type:: Clean-Voided Midstream Performed By: #### H EPATIC, MG, LIPASE, CMP, CBC #### [address] Urobilinogen,Urine Normal Normal Normal [facility] Comment on above: Order Comment: Name Collection Type:: Clean-Voided Midstream Performed By: #### H EPATIC, MG, LIPASE, CMP, CBC #### [address] Urine appearanceOrdered By: Jeramy Cunningham on 07-31-2023 Appearance (U) Clear Normal Clear [facility] Comment on above: Order Comment: Name Collection Type:: Clean-Voided Midstream Performed By: #### H EPATIC, MG, LIPASE, CMP, CBC #### [address] Urobilinogen Test strip (U) [Mass/Vol]Ordered By: Jeramy Cunningham on 07-31-2023 Urobilinogen (U) [Mass/Vol] Normal mg/dL Normal [facility] pH of Urine by Test stripOrd ered By: Jeramy Cunningham on 07-31-2023 pH (U) 8.0 [pH] Normal 5.0-9.0 [facility] Comment on above: Order Comment: Name Collection Type:: Clean-Voided Midstream Performed By: #### H EPATIC, MG, LIPASE, CMP, CBC #### [address] CBC W Auto Differential pane l (Bld)on 07-30-2023 Basophils (Bld) [#/Vol] 0.04 10*3/uL Normal <0.11 [facility] Comment on above: Order Comment: Speci men Type: BLOOD SPECIMENOrdering Facility: [facility] Address: [address] [place] [address] Performed By: #### 5 7021-8 ####[facility] LABCLIA [id number] [place] [address] [place] Basophils/100 WBC (Bld) 0.4 % Normal [facility] Comment on above: Order Comment: Speci men Type: BLOOD SPECIMENOrdering Facility: [facility] [facility] Address: [address] [place] [address] Performed By: #### 5 7021-8 ####[facility] LABCLIA [id number] [place] [address] [place] Differential cell count method Nom (Bld) Auto Normal [facility] Comment on above: Order Comment: Speci men Type: BLOOD SPECIMENOrdering Facility: [facility] Address: [address] [place] [address] Performed By: #### 5 7021-8 ####[facility] LABCLIA [id number] [place] [address] [place] Eosinophils (Bld) [#/Vol] 0.05 10*3/uL Normal <0.46 [facility] Comment on above: Order Comment: Speci men Type: BLOOD SPECIMENOrdering Facility: [facility] Address: [address] [place] [address] Performed By: #### 5 7021-8 ####[facility] LABCLIA [id number] [place] [address] [place] Eosinophils/100 WBC (Bld) 0.5 % Normal [facility] Comment on above: Order Comment: Speci men Type: BLOOD SPECIMENOrdering Facility: [facility] Address: [address] [place] [address] Performed By: #### 5 7021-8 ####[facility] LABIA [id number] [place] [address] [place] Erythrocyte distribution width (RBC) [Ratio] 13.0 % Normal 11.5-15.0 [facility] Comment on above: Order Comment: Speci men Type: BLOOD SPECIMENOrdering Facility: [facility] Address: [address] [place] [address] Performed By: #### 5 7021-8 ####[facility] LABIA [id number] [place] [address] [place] Hematocrit (Bld) [Volume fraction] 33.7 % Low 36.0-46.0 [facility] Comment on above: Order Comment: Speci men Type: BLOOD SPECIMENOrdering Facility: [facility] Address: [address] [place] [address] Performed By: #### 5 7021-8 ####[facility] LABIA [id number] [place] [address] [place] Hemoglobin (Bld) [Mass/Vol] 11.1 g/dL Low 11.5-15.5 [facility] Comment on above: Order Comment: Speci men Type: BLOOD SPECIMENOrdering Facility: [facility] Address: [address] [place] [address] Performed By: #### 5 7021-8 ####[facility] LABIA [id number] [place] [address] [place] Immature granulocytes (Bld) [#/Vol] 0.03 10*3/uL Normal <0.10 [facility] Comment on above: Order Comment: Speci men Type: BLOOD SPECIMENOrdering Facility: [facility] Address: [address] [place] [address] Performed By: #### 5 7021-8 ####[facility] LABIA [id number] [place] [address] [place] Immature granulocytes/100 WBC (Bld) 0.3 % Normal [facility] Comment on above: Order Comment: Speci men Type: BLOOD SPECIMENOrdering Facility: [facility] Address: [address] [place] [address] Performed By: #### 5 7021-8 ####[facility] LABCLIA [id number] [place] [address] [place] Lymphocytes (Bld) [#/Vol] 2.10 10*3/uL Normal 1.00-4.00 [facility] Comment on above: Order Comment: Speci men Type: BLOOD SPECIMENOrdering Facility: [facility] Address: [address] [place] [address] Performed By: #### 5 7021-8 ####[facility] LABCLIA [id number] [place] [address] [place] Lymphocytes/100 WBC (Bld) 22.0 % Normal [facility] Comment on above: Order Comment: Speci men Type: BLOOD SPECIMENOrdering Facility: [facility] Address: [address] [place] [address] Performed By: #### 5 7021-8 ####[facility] LABCLIA [id number] [place] [address] [place] MCH (RBC) [Entitic mass] 29.8 pg Normal 26.0-34.0 [facility] Comment on above: Order Comment: Speci men Type: BLOOD SPECIMENOrdering Facility: [facility] Address: [address] [place] [address] Performed By: #### 5 7021-8 ####[facility] LABCLIA [id number] [place] [address] [place] MCHC (RBC) [Mass/Vol] 32.9 g/dL Normal 30.5-36.0 [facility] Comment on above: Order Comment: Speci men Type: BLOOD SPECIMENOrdering Facility: [facility] Address: [address] [place] [address] Performed By: #### 5 7021-8 ####[facility] LABCLIA [id number] [place] [address] [place] MCV (RBC) [Entitic vol] 90.3 fL Normal 80.0-100.0 [facility] Comment on above: Order Comment: Speci men Type: BLOOD SPECIMENOrdering Facility: [facility] Address: [address] [place] [address] Performed By: #### 5 7021-8 ####[facility] LABCLIA [id number] [place] [address] [place] Monocytes (Bld) [#/Vol] 0.57 10*3/uL Normal <0.87 [facility] Comment on above: Order Comment: Speci men Type: BLOOD SPECIMENOrdering Facility: [facility] Address: [address] [place] [address] Performed By: #### 5 7021-8 ####[facility] LABCLIA [id number] [place] [address] [place] Monocytes/100 WBC (Bld) 6.0 % Normal [facility] Comment on above: Order Comment: Speci men Type: BLOOD SPECIMENOrdering Facility: [facility] Address: [address] [place] [address] Performed By: #### 5 7021-8 ####[facility] LABCLIA [id number] [place] [address] [place] Neutrophils (Bld) [#/Vol] 6.74 10*3/uL Normal 1.45-7.50 [facility] Comment on above: Order Comment: Speci men Type: BLOOD SPECIMENOrdering Facility: [facility] Address: [address] [place] [address] Performed By: #### 5 7021-8 ####[facility] LABCLIA [id number] [place] [address] [place] Neutrophils/100 WBC (Bld) 70.8 % Normal [facility] Comment on above: Order Comment: Speci men Type: BLOOD SPECIMENOrdering Facility: [facility] Address: [address] [place] [address] Performed By: #### 5 7021-8 ####[facility] LABCLIA [id number] [place] [address] [place] Nucleated RBC (Bld) [#/Vol] 10*3/uL Normal <0.01 [facility] Comment on above: Order Comment: Speci men Type: BLOOD SPECIMENOrdering Facility: [facility] Address: [address] [place] [address] Performed By: #### 5 7021-8 ####[facility] LABCLIA [id number] [place] [address] [place] Nucleated RBC/100 WBC (Bld) [Ratio] 0.0 /100 WBC Normal [facility] Comment on above: Order Comment: Speci men Type: BLOOD SPECIMENOrdering Facility: [facility] Address: [address] [place] [address] Performed By: #### 5 7021-8 ####[facility] LABCLIA [id number] [place] [address] [place] Platelet mean volume (Bld) [Entitic vol] 10.3 fL Normal 9.0-12.7 [facility] Comment on above: Order Comment: Speci men Type: BLOOD SPECIMENOrdering Facility: [facility] Address: [address] [place] [address] Performed By: #### 5 7021-8 ####[facility] LABCLIA [id number] [place] [address] [place] Platelets (Bld) [#/Vol] 258 10*3/uL Normal 150-400 [facility] Comment on above: Order Comment: Speci men Type: BLOOD SPECIMENOrdering Facility: [facility] Address: [address] [place] [address] Performed By: #### 5 7021-8 ####[facility] LABCLIA [id number] [address] [address] [place] RBC (Bld) [#/Vol] 3.73 10*6/uL Low 3.90-5.20 [facility] Comment on above: Order Comment: Speci men Type: BLOOD SPECIMENOrdering Facility: [facility] Address: [address] [place] [address] Performed By: #### 5 7021-8 ####[facility] LABIA [id number] [place] [address] [place] WBC (Bld) [#/Vol] 9.53 10*3/uL Normal 3.70-11.00 [facility] Comment on above: Order Comment: Speci men Type: BLOOD SPECIMENOrdering Facility: [facility] Address: [address] [place] [address] Performed By: #### 5 7021-8 ####[facility] LABIA [id number] [place] [id number] [place] Comprehensive metabolic 2000 panelon 07-30-2023 Albumin [Mass/Vol] 4.0 g/dL Normal 3.9-4.9 [facility] Comment on above: Order Comment: Speci men Type: BLOOD SPECIMENOrdering Facility: [facility] Address: [address] [place] [address] Performed By: #### 2 4323-8 ####[facility] LABIA [id number] [place] [id number] [place] ALP [Catalytic activity/Vol] 64 U/L Normal 34-123 [facility] Comment on above: Order Comment: Speci men Type: BLOOD SPECIMENOrdering Facility: [facility] Address: [address] [place] [address] Performed By: #### 2 4323-8 ####[facility] LABCLIA [id number] [place] [address] [place] ALT [Catalytic activity/Vol] 30 U/L Normal 7-38 [facility] Comment on above: Order Comment: Speci men Type: BLOOD SPECIMENOrdering Facility: [facility] Address: [address] [place] [address] Performed By: #### 2 4323-8 ####[facility] LABCLIA [id number] [place] [address] [place] Anion gap [Moles/Vol] 12 mmol/L Normal 8-15 [facility] Comment on above: Order Comment: Speci men Type: BLOOD SPECIMENOrdering Facility: [facility] Address: [address] [place] [address] Performed By: #### 2 4323-8 ####[facility] LABCLIA [id number] [place] [address] [place] AST [Catalytic activity/Vol] 30 U/L Normal 13-35 [facility] Comment on above: Order Comment: Speci men Type: BLOOD SPECIMENOrdering Facility: [facility] Address: [address] [place] [address] Performed By: #### 2 4323-8 ####[facility] LABCLIA [id number] [place] [address] [place] Bilirubin [Mass/Vol] 0.2 mg/dL Normal 0.2-1.3 [facility] Comment on above: Order Comment: Speci men Type: BLOOD SPECIMENOrdering Facility: [facility] Address: [address] [place], [place] [id number] Performed By: #### 2 4323-8 ####[facility] LABCLIA [id number] [place] [address] [place] Calcium [Mass/Vol] 8.7 mg/dL Normal 8.5-10.2 [facility] Comment on above: Order Comment: Speci men Type: BLOOD SPECIMENOrdering Facility: [facility] Address: [address] [place] [address] Performed By: #### 2 4323-8 ####[facility] LABCLIA [id number] [place] [address] [place] Chloride [Moles/Vol] 105 mmol/L Normal 98-107 [facility] Comment on above: Order Comment: Speci men Type: BLOOD SPECIMENOrdering Facility: [facility] Address: [address] [place] [address] Performed By: #### 2 4323-8 ####[facility] LABCLIA [id number] [place] [address] [place] CO2 [Moles/Vol] 22 mmol/L Normal 22-30 [facility] Comment on above: Order Comment: Speci men Type: BLOOD SPECIMENOrdering Facility: [facility] Address: [address] [place] [address] Performed By: #### 2 4323-8 ####[facility] LABCLIA [id number] [place] [address] [place] Creatinine [Mass/Vol] 0.59 mg/dL Normal 0.58-0.96 [facility] Comment on above: Order Comment: Speci men Type: BLOOD SPECIMENOrdering Facility: [facility] Address: [address] [place] [address] Performed By: #### 2 4323-8 ####[facility] LABCLIA [id number] [place] [address] [place] Creatinine and Glomerular filtration rate.predicted panel (S/P/Bld) 121 mL/min/1.73m??? Normal >=60 [facility] Comment on above: Order Comment: Speci men Type: BLOOD SPECIMENOrdering Facility: [facility] Address: [address] [place] [address] Result Comment: Jessica mated Glomerular Filtration Rate [...] Performed By: #### 2 4323-8 ####[facility] LABCLIA [id number] [place] [address] [place] Glucose [Mass/Vol] 88 mg/dL Normal 74-99 [facility] Comment on above: Order Comment: Geraldo marrero Type: BLOOD SPECIMENOrdering Facility: [facility] Address: [address] [place] [address] Result Comment: The [place] [employer] (ADA) provides guidance for cutoff [...] Standards of Medical Care in Diabetes 2016, [place] [employer]. Diabetes Care. 2016.39(Suppl 1). Performed By: #### 2 4323-8 ####[facility] LABCLIA [id number] [place] [address] [place] Potassium [Moles/Vol] 4.0 mmol/L Normal 3.7-5.1 [facility] Comment on above: Order Comment: Geraldo marrero Type: BLOOD SPECIMENOrdering Facility: [facility] Address: [address] [place] [address] Performed By: #### 2 4323-8 ####[facility] LABIA [id number] [place] [address] [place] Protein [Mass/Vol] 6.5 g/dL Normal 6.3-8.0 [facility] Comment on above: Order Comment: Speci men Type: BLOOD SPECIMENOrdering Facility: [facility] Address: [address] [place] [address] Performed By: #### 2 4323-8 ####[facility] LABCLIA [id number] [place] [address] [place] Sodium [Moles/Vol] 139 mmol/L Normal 136-144 [facility] Comment on above: Order Comment: Speci men Type: BLOOD SPECIMENOrdering Facility: [facility] Address: [address] [place] [address] Performed By: #### 2 4323-8 ####[facility] LABCLIA [id number] [place] [address] [place] Urea nitrogen [Mass/Vol] 13 mg/dL Normal 7-21 [facility] Comment on above: Order Comment: Speci men Type: BLOOD SPECIMENOrdering Facility: [facility] Address: [address] [place] [address] Performed By: #### 2 4323-8 ####[facility] LABCLIA [id number] [place] [address] [place] Basic metabolic 2000 panelon 07-20-2023 Anion gap [Moles/Vol] 14 mmol/L Normal 9-18 [facility] Comment on above: Order Comment: Speci men Type: BLOOD SPECIMENOrdering Facility: [facility] Address: [address] [place] [address] Performed By: #### 2 777-1, 97943-1, 72561-8 ####[place]ORATORYCLIA [id number] [place] [address] [place] Calcium [Mass/Vol] 8.9 mg/dL Normal 8.5-10.2 [facility] Comment on above: Order Comment: Speci men Type: BLOOD SPECIMENOrdering Facility: [facility] Address: [address] [place] [address] Performed By: #### 2 777-1, 48274-4, ####[facility]ATORYCLIA [id number] [place] [id number] [place] Chloride [Moles/Vol] 110 mmol/L High 97-105 [facility] Comment on above: Order Comment: Speci men Type: BLOOD SPECIMENOrdering Facility: [facility] Address: [address] [place] [address] Performed By: #### 2 777-1, 51460-1, ####[facility]ATORYCLIA [id number] [place] [address] [place] CO2 [Moles/Vol] 19 mmol/L Low 22-30 [facility] Comment on above: Order Comment: Speci men Type: BLOOD SPECIMENOrdering Facility: [facility] Address: [address] [place] [address] Performed By: #### 2 777-1, , ####[facility] LABORATORYCLIA [id number] [place] [address] [place] Creatinine [Mass/Vol] 0.76 mg/dL Normal 0.58-0.96 [facility] Comment on above: Order Comment: Speci men Type: BLOOD SPECIMENOrdering Facility: [facility] Address: [address] [place] [address] Performed By: #### 2 777-1, , ####[facility] LABORATORYCLIA [id number] [place] [id number] [facility] [place] Creatinine and Glomerular filtration rate.predicted panel (S/P/Bld) 106 mL/min/1.73m??? Normal >=60 [facility] Comment on above: Order Comment: Speci men Type: BLOOD SPECIMENOrdering Facility: [facility] Address: [address] [place] [address] Result Comment: Jessica mated Glomerular Filtration Rate [...] actual GFR. Performed By: #### 2 777-1, 29518-7, ####[facility]ATORYCLIA [id number] [place] [address] [place] Glucose [Mass/Vol] 97 mg/dL Normal 74-99 [facility] Comment on above: Order Comment: Geraldo marrero Type: BLOOD SPECIMENOrdering Facility: [facility] Address: [address] [place] [address] Result Comment: The [place] [employer] (ADA) provides guidance for cutoff [...] Standards of Medical Care in Diabetes 2016, [place] [employer]. Diabetes Care. 2016.39(Suppl 1). Performed By: #### 2 777-1, , ####[facility]ORYCLIA [id number] [place] [address] [place] Potassium [Moles/Vol] 4.0 mmol/L Normal 3.7-5.1 [facility] Comment on above: Order Comment: Geraldo marrero Type: BLOOD SPECIMENOrdering Facility: [facility] Address: [address] [place] [address] Performed By: #### 2 777-1, 43831-3, ####[facility]ATORYCLIA [id number] [place] [address] [place] Sodium [Moles/Vol] 143 mmol/L Normal 136-144 [facility] Comment on above: Order Comment: Speci men Type: BLOOD SPECIMENOrdering Facility: [facility] Address: [address] [place] [address] Performed By: #### 2 777-1, 32278-5, ####[facility] LABORATORYCLIA [id number] [place] [address] [place] Urea nitrogen [Mass/Vol] 8 mg/dL Normal 7-21 [facility] Comment on above: Order Comment: Speci men Type: BLOOD SPECIMENOrdering Facility: [facility] Address: [address] [place] [address] Performed By: #### 2 777-1, , ####[facility] [place]ATORYCLIA [id number] [place] [id number] [facility] [place] CASE MANAGEMon 07-20-2023 CASE MANAGEM Normal [facility] CBC W Auto Differential pane l (Bld)on 07-20-2023 Basophils (Bld) [#/Vol] 10*3/uL Normal <0.11 [facility] Comment on above: Order Comment: Speci men Type: BLOOD SPECIMENOrdering Facility: [facility] Address: [address] [place] [address] Performed By: #### 5 7021-8 ####[facility]ORATORYCLIA [id number] [address] [place] Basophils/100 WBC (Bld) 0.4 % Normal [facility] Comment on above: Order Comment: Speci men Type: BLOOD SPECIMENOrdering Facility: [facility] Address: [address] [place] [address] Performed By: #### 5 7021-8 ####[facility] LABORATORYCLIA [id number] [address] [place] Differential cell count method Nom (Bld) Auto Normal [facility] Comment on above: Order Comment: Speci men Type: BLOOD SPECIMENOrdering Facility: [facility] Address: [address] [place] [address] Performed By: #### 5 7021-8 ####[facility]ORATORYCLIA [id number] [place] [address] [place] Eosinophils (Bld) [#/Vol] 0.19 10*3/uL Normal <0.46 [facility] Comment on above: Order Comment: Speci men Type: BLOOD SPECIMENOrdering Facility: [facility] Address: [address] [place] [address] Performed By: #### 5 7021-8 ####[facility]ORATORYCLIA [id number] [place] [address] [place] Eosinophils/100 WBC (Bld) 3.8 % Normal [facility] Comment on above: Order Comment: Speci men Type: BLOOD SPECIMENOrdering Facility: [facility] Address: [address] [place] [address] Performed By: #### 5 7021-8 ####[facility]ORATORYCLIA [id number] [place] [address] [place] Erythrocyte distribution width (RBC) [Ratio] 12.8 % Normal 11.5-15.0 [facility] Comment on above: Order Comment: Speci men Type: BLOOD SPECIMENOrdering Facility: [facility] Address: [address] [place] [address] Performed By: #### 5 7021-8 ####[facility]ORATORYCLIA [id number] [place] [address] [place] Hematocrit (Bld) [Volume fraction] 31.6 % Low 36.0-46.0 [facility] Comment on above: Order Comment: Speci men Type: BLOOD SPECIMENOrdering Facility: [facility] Address: [address] [place] [address] Performed By: #### 5 7021-8 ####[facility]ORATORYCLIA [id number] [place] [address] [place] Hemoglobin (Bld) [Mass/Vol] 10.5 g/dL Low 11.5-15.5 [facility] Comment on above: Order Comment: Speci men Type: BLOOD SPECIMENOrdering Facility: [facility] Address: [address] [place] [address] Performed By: #### 5 7021-8 ####[facility] LABORATORYCLIA [id number] [place] [id number] [place] Immature granulocytes (Bld) [#/Vol] 10*3/uL Normal <0.10 [facility] Comment on above: Order Comment: Speci men Type: BLOOD SPECIMENOrdering Facility: [facility] Address: [address] [place] [address] Performed By: #### 5 7021-8 ####[facility] LABORATORYCLIA [id number] [address] [place] [facility] Immature granulocytes/100 WBC (Bld) 0.2 % Normal [facility] Comment on above: Order Comment: Speci men Type: BLOOD SPECIMENOrdering Facility: [facility] Address: [address] [place] [address] Performed By: #### 5 7021-8 ####[facility]ORATORYCLIA [id number] [place] [address] [place] Lymphocytes (Bld) [#/Vol] 0.99 10*3/uL Low 1.00-4.00 [facility] Comment on above: Order Comment: Speci men Type: BLOOD SPECIMENOrdering Facility: [facility] Address: [address] [place] [address] Performed By: #### 5 7021-8 ####[facility] LABORATORYCLIA [id number] [address] [place] Lymphocytes/100 WBC (Bld) 19.8 % Normal [facility] Comment on above: Order Comment: Speci men Type: BLOOD SPECIMENOrdering Facility: [facility] Address: [address] [place] [address] Performed By: #### 5 7021-8 ####[facility] LABORATORYCLIA [id number] [place] [address] [place] MCH (RBC) [Entitic mass] 30.2 pg Normal 26.0-34.0 [facility] Comment on above: Order Comment: Speci men Type: BLOOD SPECIMENOrdering Facility: [facility] Address: [address] [place] [address] Performed By: #### 5 7021-8 ####[facility] LABORATORYCLIA [id number] [place] [id number] [place] MCHC (RBC) [Mass/Vol] 33.2 g/dL Normal 30.5-36.0 [facility] Comment on above: Order Comment: Speci men Type: BLOOD SPECIMENOrdering Facility: [facility] Address: [address] [place] [address] Performed By: #### 5 7021-8 ####[facility] LABORATORYCLIA [id number] [place] [id number] [place] MCV (RBC) [Entitic vol] 90.8 fL Normal 80.0-100.0 [facility] Comment on above: Order Comment: Speci men Type: BLOOD SPECIMENOrdering Facility: [facility] Address: [address] [place] [address] Performed By: #### 5 7021-8 ####[facility] LABORATORYCLIA [id number] [place] [address] [place] Monocytes (Bld) [#/Vol] 0.32 10*3/uL Normal <0.87 [facility] Comment on above: Order Comment: Speci men Type: BLOOD SPECIMENOrdering Facility: [facility] Address: [address] [place] [address] Performed By: #### 5 7021-8 ####[facility] LABORATORYCLIA [id number] [place] [id number] [place] Monocytes/100 WBC (Bld) 6.4 % Normal [facility] Comment on above: Order Comment: Speci men Type: BLOOD SPECIMENOrdering Facility: [facility] Address: [address] [place] [address] Performed By: #### 5 7021-8 ####[facility] LABORATORYCLIA [id number] [place] [address] [place] Neutrophils (Bld) [#/Vol] 3.47 10*3/uL Normal 1.45-7.50 [facility] Comment on above: Order Comment: Speci men Type: BLOOD SPECIMENOrdering Facility: [facility] Address: [address] [place] [address] Performed By: #### 5 7021-8 ####[facility] LABORATORYCLIA [id number] [place] [id number] [place] Neutrophils/100 WBC (Bld) 69.4 % Normal [facility] Comment on above: Order Comment: Speci men Type: BLOOD SPECIMENOrdering Facility: [facility] Address: [address] [place] [address] Performed By: #### 5 7021-8 ####[facility] LABORATORYCLIA [id number] [place] [id number] [place] Nucleated RBC (Bld) [#/Vol] 10*3/uL Normal <0.01 [facility] Comment on above: Order Comment: Speci men Type: BLOOD SPECIMENOrdering Facility: [facility] Address: [address] [place] [address] Performed By: #### 5 7021-8 ####[facility] LABORATORYCLIA [id number] [place] [id number] [place] Nucleated RBC/100 WBC (Bld) [Ratio] 0.0 /100 WBC Normal [facility] Comment on above: Order Comment: Speci men Type: BLOOD SPECIMENOrdering Facility: [facility] Address: [address] [place] [address] Performed By: #### 5 7021-8 ####[facility] LABORATORYCLIA [id number] [place] [id number] [place] Platelet mean volume (Bld) [Entitic vol] 11.1 fL Normal 9.0-12.7 [facility] Comment on above: Order Comment: Speci men Type: BLOOD SPECIMENOrdering Facility: [facility] Address: [address] [place] [address] Performed By: #### 5 7021-8 ####[facility] LABORATORYCLIA [id number] [place] [id number] [place] Platelets (Bld) [#/Vol] 225 10*3/uL Normal 150-400 [facility] Comment on above: Order Comment: Speci men Type: BLOOD SPECIMENOrdering Facility: [facility] Address: [address] [place] [address] Performed By: #### 5 7021-8 ####[facility] LABORATORYCLIA [id number] [place] [address] [place] RBC (Bld) [#/Vol] 3.48 10*6/uL Low 3.90-5.20 [facility] Comment on above: Order Comment: Speci men Type: BLOOD SPECIMENOrdering Facility: [facility] Address: [address] [place] [address] Performed By: #### 5 7021-8 ####[facility]ORATORYCLIA [id number] [place] [address] [place] [facility] WBC (Bld) [#/Vol] 5.00 10*3/uL Normal 3.70-11.00 [facility] Comment on above: Order Comment: Speci men Type: BLOOD SPECIMENOrdering Facility: [facility] Address: [address] [place] [address] Performed By: #### 5 7021-8 ####[facility]ORATORYCLIA [id number] [place] [id number] [place] CNDSon 07-20-2023 CNDS Normal [facility] Magnesium SerPl-mCncon 07-19 Magnesium [Mass/Vol] 2.1 mg/dL Normal 1.7-2.3 [facility] Comment on above: Order Comment: Speci men Type: BLOOD SPECIMENOrdering Facility: [facility] Address: [address] [place] [address] Performed By: #### 2 777-1, 01424-5, 55831-4 ####[facility]ORATORYCLIA [id number] [place] [id number] [place] NURSING PROGon 07-20-2023 NURSING PROG Normal [facility] Phosphate SerPl-mCncon 07-19 Phosphate [Mass/Vol] 4.2 mg/dL Normal 2.7-4.8 [facility] Comment on above: Order Comment: Speci men Type: BLOOD SPECIMENOrdering Facility: [facility] Address: [address] [place] [address] Performed By: #### 2 777-1, , ####[facility]ORATORYCLIA [id number] [place] [address] [place] Basic metabolic 2000 panelon 07-19-2023 Anion gap [Moles/Vol] 9 mmol/L Normal 9-18 [facility] Comment on above: Order Comment: Speci men Type: BLOOD SPECIMENOrdering Facility: [facility] Address: [address] [place] [address] Performed By: #### 2 777-1, , ####[facility] LABORATORYCLIA [id number] [place] [address] [place] Calcium [Mass/Vol] 8.7 mg/dL Normal 8.5-10.2 [facility] Comment on above: Order Comment: Speci men Type: BLOOD SPECIMENOrdering Facility: [facility] Address: [address] [place] [address] Performed By: #### 2 777-1, , ####[facility]ORATORYCLIA [id number] [place] [id number] [place] Chloride [Moles/Vol] 107 mmol/L High 97-105 [facility] Comment on above: Order Comment: Speci men Type: BLOOD SPECIMENOrdering Facility: [facility] Address: [address] [place], [place] [address] Performed By: #### 2 777-1, 33631-5, ####[facility]ORATORYCLIA [id number] [place] [id number] [place] CO2 [Moles/Vol] 23 mmol/L Normal 22-30 [facility] Comment on above: Order Comment: Speci men Type: BLOOD SPECIMENOrdering Facility: [facility] Address: [address] [place] [address] Performed By: #### 2 777-1, 01557-2, ####[facility]ORATORYCLIA [id number] [place] [id number] [place] [facility] Creatinine [Mass/Vol] 0.75 mg/dL Normal 0.58-0.96 [facility] Comment on above: Order Comment: Geraldo marrero Type: BLOOD SPECIMENOrdering Facility: [facility] Address: [address] [place] [address] Performed By: #### 2 777-1, 85075-5, ####[facility]ORATORYCLIA [id number] [place] [id number] [facility] Creatinine and Glomerular filtration rate.predicted panel (S/P/Bld) 107 mL/min/1.73m??? Normal >=60 [facility] Comment on above: Order Comment: Geraldo [facility] Type: BLOOD SPECIMENOrdering Facility: [facility] Address: [address] [place] [address] Result Comment: Jessica mated Glomerular Filtration Rate [...] actual GFR. Performed By: #### 2 777-1, 67032-3, ####[facility]ORATORYCLIA [id number] [place] [id number] [place] Glucose [Mass/Vol] 81 mg/dL Normal 74-99 [facility] Comment on above: Order Comment: Geraldo elida Type: BLOOD SPECIMENOrdering Facility: [facility] Address: [address] [place] [address] Result Comment: The [place] [employer] (ADA) provides guidance for cutoff [...] Standards of Medical Care in Diabetes 2016, [place] [employer]. Diabetes Care. 2016.39(Suppl 1). Performed By: #### 2 777-1, 83921-7, ####[facility]ORATORYCLIA [id number] [place] [id number] [place] Potassium [Moles/Vol] 3.9 mmol/L Normal 3.7-5.1 [facility] Comment on above: Order Comment: Geraldo marrero Type: BLOOD SPECIMENOrdering Facility: [facility] Address: [address] [place] [address] Performed By: #### 2 777-1, , ####[facility]ORATORYCLIA [id number] [place] [id number] [place] Sodium [Moles/Vol] 139 mmol/L Normal 136-144 [facility] Comment on above: Order Comment: Geraldo marrero Type: BLOOD SPECIMENOrdering Facility: [facility] Address: [address] [place] [address] Performed By: #### 2 777-1, , ####[facility]ORATORYCLIA [id number] [place] [id number] [place] Urea nitrogen [Mass/Vol] 6 mg/dL Low 7-21 [facility] Comment on above: Order Comment: Geraldo marrero Type: BLOOD SPECIMENOrdering Facility: [facility] Address: [address] [place] [address] Performed By: #### 2 777-1, , ####[facility]ORATORYCLIA [id number] [place] [id number] [place] CASE MGT INIT ASSESon 2023 CASE MGT INIT ASSES Normal [facility] CBC W Auto Differential pane l (Bld)on 07-19-2023 Basophils (Bld) [#/Vol] 0.04 10*3/uL Normal <0.11 [facility] Comment on above: Order Comment: Speci men Type: BLOOD SPECIMENOrdering Facility: [facility] Address: [address] [place] [address] Performed By: #### 5 7021-8 ####[facility] LABORATORYCLIA [id number] [place] [id number] [place] Basophils/100 WBC (Bld) 1.3 % Normal [facility] Comment on above: Order Comment: Speci men Type: BLOOD SPECIMENOrdering Facility: [facility] Address: [address] [place] [address] Performed By: #### 5 7021-8 ####[facility] LABORATORYCLIA [id number] [place] [address] [place] Differential cell count method Nom (Bld) Auto Normal [facility] Comment on above: Order Comment: Speci men Type: BLOOD SPECIMENOrdering Facility: [facility] Address: [address] [place] [address] Performed By: #### 5 7021-8 ####[facility] LABORATORYCLIA [id number] [place] [address] [place] Eosinophils (Bld) [#/Vol] 0.28 10*3/uL Normal <0.46 [facility] Comment on above: Order Comment: Speci men Type: BLOOD SPECIMENOrdering Facility: [facility] Address: [address] [place] [address] Performed By: #### 5 7021-8 ####[facility] LABORATORYCLIA [id number] [place] [id number] [place] Eosinophils/100 WBC (Bld) 9.1 % Normal [facility] Comment on above: Order Comment: Speci men Type: BLOOD SPECIMENOrdering Facility: [facility] Address: [address] [place] [address] Performed By: #### 5 7021-8 ####[facility] LABORATORYCLIA [id number] [place] [address] [place] Erythrocyte distribution width (RBC) [Ratio] 12.6 % Normal 11.5-15.0 [facility] Comment on above: Order Comment: Speci men Type: BLOOD SPECIMENOrdering Facility: [facility] Address: [address] [place] [address] Performed By: #### 5 7021-8 ####[facility] LABORATORYCLIA [id number] [place] [address] [place] Hematocrit (Bld) [Volume fraction] 29.7 % Low 36.0-46.0 [facility] Comment on above: Order Comment: Speci men Type: BLOOD SPECIMENOrdering Facility: [facility] Address: [address] [place] [address] Performed By: #### 5 7021-8 ####[facility] LABORATORYCLIA [id number] [address] [place] Hemoglobin (Bld) [Mass/Vol] 10.0 g/dL Low 11.5-15.5 [facility] Comment on above: Order Comment: Speci men Type: BLOOD SPECIMENOrdering Facility: [facility] Address: [address] [place] [address] Performed By: #### 5 7021-8 ####[facility] LABORATORYCLIA [id number] [address] [place] Immature granulocytes (Bld) [#/Vol] 10*3/uL Normal <0.10 [facility] Comment on above: Order Comment: Speci men Type: BLOOD SPECIMENOrdering Facility: [facility] Address: [address] [place] [address] Performed By: #### 5 7021-8 ####[facility] LABORATORYCLIA [id number] [address] [place] Immature granulocytes/100 WBC (Bld) 0.3 % Normal [facility] Comment on above: Order Comment: Speci men Type: BLOOD SPECIMENOrdering Facility: [facility] Address: [address] [place] [address] Performed By: #### 5 7021-8 ####[facility] LABORATORYCLIA [id number] [place] [address] [place] Lymphocytes (Bld) [#/Vol] 1.18 10*3/uL Normal 1.00-4.00 [facility] Comment on above: Order Comment: Speci men Type: BLOOD SPECIMENOrdering Facility: [facility] Address: [address] [place] [address] Performed By: #### 5 7021-8 ####[facility] LABORATORYCLIA [id number] [address] Lymphocytes/100 WBC (Bld) 38.2 % Normal [facility] Comment on above: Order Comment: Speci men Type: BLOOD SPECIMENOrdering Facility: [facility] Address: [address] [place] [address] Performed By: #### 5 7021-8 ####[facility] LABORATORYCLIA [id number] [address] [place] MCH (RBC) [Entitic mass] 29.9 pg Normal 26.0-34.0 [facility] Comment on above: Order Comment: Speci men Type: BLOOD SPECIMENOrdering Facility: [facility] Address: [address] [place] [address] Performed By: #### 5 7021-8 ####[facility] LABORATORYCLIA [id number] [address] [place] MCHC (RBC) [Mass/Vol] 33.7 g/dL Normal 30.5-36.0 [facility] Comment on above: Order Comment: Speci men Type: BLOOD SPECIMENOrdering Facility: [facility] Address: [address] [place] [address] Performed By: #### 5 7021-8 ####[facility] LABORATORYCLIA [id number] [address] STATES [facility] MCV (RBC) [Entitic vol] 88.9 fL Normal 80.0-100.0 [facility] Comment on above: Order Comment: Speci men Type: BLOOD SPECIMENOrdering Facility: [facility] Address: [address] [place] [address] Performed By: #### 5 7021-8 ####[facility] LABORATORYCLIA [id number] [place] [id number] [place] Monocytes (Bld) [#/Vol] 0.26 10*3/uL Normal <0.87 [facility] Comment on above: Order Comment: Speci men Type: BLOOD SPECIMENOrdering Facility: [facility] Address: [address] [place] [address] Performed By: #### 5 7021-8 ####[facility] LABORATORYCLIA [id number] [place] [id number] [place] Monocytes/100 WBC (Bld) 8.4 % Normal [facility] Comment on above: Order Comment: Speci men Type: BLOOD SPECIMENOrdering Facility: [facility] Address: [address] [place] [address] Performed By: #### 5 7021-8 ####[facility] LABORATORYCLIA [id number] [place] [id number] [place] Neutrophils (Bld) [#/Vol] 1.32 10*3/uL Low 1.45-7.50 [facility] Comment on above: Order Comment: Speci men Type: BLOOD SPECIMENOrdering Facility: [facility] Address: [address] [place] [address] Performed By: #### 5 7021-8 ####[facility] LABORATORYCLIA [id number] [place] [id number] [place] Neutrophils/100 WBC (Bld) 42.7 % Normal [facility] Comment on above: Order Comment: Speci men Type: BLOOD SPECIMENOrdering Facility: [facility] Address: [address] [place] [address] Performed By: #### 5 7021-8 ####[facility] LABORATORYCLIA [id number] [place] [id number] [place] Nucleated RBC (Bld) [#/Vol] 10*3/uL Normal <0.01 [facility] Comment on above: Order Comment: Speci men Type: BLOOD SPECIMENOrdering Facility: [facility] Address: [address] [place] [address] Performed By: #### 5 7021-8 ####[facility]ORATORYCLIA [id number] [place] [id number] [place] Nucleated RBC/100 WBC (Bld) [Ratio] 0.0 /100 WBC Normal [facility] Comment on above: Order Comment: Speci men Type: BLOOD SPECIMENOrdering Facility: [facility] Address: [address] [place] [address] Performed By: #### 5 7021-8 ####[facility]ORATORYCLIA [id number] [place] [address] [place] Platelet mean volume (Bld) [Entitic vol] 10.6 fL Normal 9.0-12.7 [facility] Comment on above: Order Comment: Speci men Type: BLOOD SPECIMENOrdering Facility: [facility] Address: [address] [place] [address] Performed By: #### 5 7021-8 ####[facility]ORATORYCLIA [id number] [place] [id number] [place] Platelets (Bld) [#/Vol] 210 10*3/uL Normal 150-400 [facility] Comment on above: Order Comment: Speci men Type: BLOOD SPECIMENOrdering Facility: [facility] Address: [address] [place] [address] Performed By: #### 5 7021-8 ####[facility]ORATORYCLIA [id number] [place] [id number] [place] RBC (Bld) [#/Vol] 3.34 10*6/uL Low 3.90-5.20 [facility] Comment on above: Order Comment: Speci men Type: BLOOD SPECIMENOrdering Facility: [facility] Address: [address] [place] [address] Performed By: #### 5 7021-8 ####[facility]ORATORYCLIA [id number] [place] [id number] [place] WBC (Bld) [#/Vol] 3.09 10*3/uL Low 3.70-11.00 [facility] Comment on above: Order Comment: Speci men Type: BLOOD SPECIMENOrdering Facility: [facility] Address: [facility] [place] [id number] Performed By: #### 5 7021-8 ####[facility]ORATORYCLIA [id number] [place] [address] [place] Magnesium [facility]con 07-18 Magnesium [Mass/Vol] 2.0 mg/dL Normal 1.7-2.3 [facility] Comment on above: Order Comment: Speci men Type: BLOOD SPECIMENOrdering Facility: [facility] Address: [address] [place] [address] [place] [address] Performed By: #### 2 777-1, 14314-9, ####[facility]ORATORYCLIA [id number] [place] [id number] [place] NUTRITIONon 07-19-2023 NUTRITION Normal [facility] Phosphate [facility]-mCncon 07-18 Phosphate [Mass/Vol] 4.3 mg/dL Normal 2.7-4.8 [facility] Comment on above: Order Comment: Speci men Type: BLOOD SPECIMENOrdering Facility: [facility] Address: [facility] [place] [id number] Performed By: #### 2 777-1, 07022-6, ####[facility]ORATORYCLIA [id number] [place] [id number] [place] ALLIED HEALTHon 07-18-2023 ALLIED HEALTH Normal [facility] ALLIED HEALTH Normal [facility] Basic metabolic 2000 panelon 07-18-2023 Anion gap [Moles/Vol] 9 mmol/L Normal 9-18 [facility] Comment on above: Order Comment: Speci men Type: BLOOD SPECIMENOrdering Facility: [facility] Address: [address] [place], [place] [address] [address] Performed By: #### 2 777-1, 71756-5, ####[facility]ORATORYCLIA [id number] [place] [id number] [place] Calcium [Mass/Vol] 8.5 mg/dL Normal 8.5-10.2 [facility] Comment on above: Order Comment: Speci men Type: BLOOD SPECIMENOrdering Facility: [facility] Address: [address] [place] [address] Performed By: #### 2 777-1, 66597-8, ####[facility]ORATORYCLIA [id number] [place] [id number] [place] Chloride [Moles/Vol] 108 mmol/L High 97-105 [facility] Comment on above: Order Comment: Speci men Type: BLOOD SPECIMENOrdering Facility: [facility] Address: [address] [place] [address] Performed By: #### 2 777-1, , ####[facility]ORATORYCLIA [id number] [place] [address] [place] CO2 [Moles/Vol] 22 mmol/L Normal 22-30 [facility] Comment on above: Order Comment: Speci men Type: BLOOD SPECIMENOrdering Facility: [facility] Address: [address] [place] [address] Performed By: #### 2 777-1, , ####[facility]ORATORYCLIA [id number] [place] [id number] [place] Creatinine [Mass/Vol] 0.76 mg/dL Normal 0.58-0.96 [facility] Comment on above: Order Comment: Speci men Type: BLOOD SPECIMENOrdering Facility: [facility] Address: [address] [place] [address] Performed By: #### 2 777-1, , ####[facility]ORATORYCLIA [id number] [place] [id number] [place] Creatinine and Glomerular filtration rate.predicted panel (S/P/Bld) 106 mL/min/1.73m??? Normal >=60 [facility] Comment on above: Order Comment: Speci men Type: BLOOD SPECIMENOrdering Facility: [facility] Address: [address] [place] [address] Result Comment: Jessica mated Glomerular Filtration Rate [...] actual GFR. Performed By: #### 2 777-1, 25525-0, ####[facility]ORATORYCLIA [id number] [place] [id number] [place] Glucose [Mass/Vol] 80 mg/dL Normal 74-99 [facility] Comment on above: Order Comment: Geraldo marrero Type: BLOOD SPECIMENOrdering Facility: [facility] Address: [address] [place] [address] Result Comment: The [place] [employer] (ADA) provides guidance for cutoff [...] Standards of Medical Care in Diabetes 2016, [place] [employer]. Diabetes Care. 2016.39(Suppl 1). Performed By: #### 2 777-1, 88191-2, ####[facility] LABORATORYCLIA [id number] [place] [id number] [place] Potassium [Moles/Vol] 4.1 mmol/L Normal 3.7-5.1 [facility] Comment on above: Order Comment: Geraldo marrero Type: BLOOD SPECIMENOrdering Facility: [facility] Address: [address] [place] [address] Performed By: #### 2 777-1, 00993-2, ####[facility]ATORYCLIA [id number] [place] [address] [place] Sodium [Moles/Vol] 139 mmol/L Normal 136-144 [facility] Comment on above: Order Comment: Speci men Type: BLOOD SPECIMENOrdering Facility: [facility] Address: [address] [place] [address] Performed By: #### 2 777-1, 79964-0, 15803-1 ####[facility] LABORATORYCLIA [id number] [place] [id number] [place] Urea nitrogen [Mass/Vol] 7 mg/dL Normal 7-21 [facility] Comment on above: Order Comment: Speci men Type: BLOOD SPECIMENOrdering Facility: [facility] Address: [address] [place] [address] Performed By: #### 2 777-1, 99342-0, ####[facility] LABORATORYCLIA [id number] [place] [id number] [place] CBC W Auto Differential pane l (Bld)on 07-18-2023 Basophils (Bld) [#/Vol] 0.06 10*3/uL Normal <0.11 [facility] Comment on above: Order Comment: Speci men Type: BLOOD SPECIMENOrdering Facility: [facility] Address: [address] [place] [address] Performed By: #### 5 7021-8 ####[facility] LABORATORYCLIA [id number] [place] [id number] [place] Basophils/100 WBC (Bld) 1.6 % Normal [facility] Comment on above: Order Comment: Speci men Type: BLOOD SPECIMENOrdering Facility: [facility] Address: [address] [place] [address] Performed By: #### 5 7021-8 ####[facility] LABORATORYCLIA [id number] [address] [place] Differential cell count method Nom (Bld) Auto Normal [facility] Comment on above: Order Comment: Speci men Type: BLOOD SPECIMENOrdering Facility: [facility] Address: [address] [place] [address] Performed By: #### 5 7021-8 ####[facility] LABORATORYCLIA [id number] [place] [address] [place] Eosinophils (Bld) [#/Vol] 0.33 10*3/uL Normal <0.46 [facility] Comment on above: Order Comment: Speci men Type: BLOOD SPECIMENOrdering Facility: [facility] Address: [address] [place] [address] Performed By: #### 5 7021-8 ####[facility] LABORATORYCLIA [id number] [place] [address] [place] Eosinophils/100 WBC (Bld) 8.8 % Normal [facility] Comment on above: Order Comment: Speci men Type: BLOOD SPECIMENOrdering Facility: [facility] Address: [address] [place] [address] Performed By: #### 5 7021-8 ####OS[facility] LABORATORYCLIA [id number] [place] [address] [place] Erythrocyte distribution width (RBC) [Ratio] 12.9 % Normal 11.5-15.0 [facility] Comment on above: Order Comment: Speci men Type: BLOOD SPECIMENOrdering Facility: [facility] Address: [address] [place] [address] Performed By: #### 5 7021-8 ####[facility] LABORATORYCLIA [id number] [place] [address] [place] Hematocrit (Bld) [Volume fraction] 31.1 % Low 36.0-46.0 [facility] Comment on above: Order Comment: Speci men Type: BLOOD SPECIMENOrdering Facility: [facility] Address: [address] [place] [address] Performed By: #### 5 7021-8 ####[facility] LABORATORYCLIA [id number] [place] [address] [place] Hemoglobin (Bld) [Mass/Vol] 10.2 g/dL Low 11.5-15.5 [facility] Comment on above: Order Comment: Speci men Type: BLOOD SPECIMENOrdering Facility: [facility] Address: [address] [place] [address] Performed By: #### 5 7021-8 ####OS[facility] LABORATORYCLIA [id number] [place] [address] [facility] [place] Immature granulocytes (Bld) [#/Vol] 10*3/uL Normal <0.10 [facility] Comment on above: Order Comment: Speci men Type: BLOOD SPECIMENOrdering Facility: [facility] Address: [address] [place] [address] Performed By: #### 5 7021-8 ####[facility] LABORATORYCLIA [id number] [address] Immature granulocytes/100 WBC (Bld) 0.0 % Normal [facility] Comment on above: Order Comment: Speci men Type: BLOOD SPECIMENOrdering Facility: [facility] Address: [address] [place] [address] Performed By: #### 5 7021-8 ####OS[facility] LABORATORYCLIA [id number] [address] [place] Lymphocytes (Bld) [#/Vol] 1.40 10*3/uL Normal 1.00-4.00 [facility] Comment on above: Order Comment: Speci men Type: BLOOD SPECIMENOrdering Facility: [facility] Address: [address] [place] [address] Performed By: #### 5 7021-8 ####OS[facility] LABORATORYCLIA [id number] [address] [place] Lymphocytes/100 WBC (Bld) 37.2 % Normal [facility] Comment on above: Order Comment: Speci men Type: BLOOD SPECIMENOrdering Facility: [facility] Address: [address] [place] [address] Performed By: #### 5 7021-8 ####OS[facility] LABORATORYCLIA [id number] [place] [address] [place] MCH (RBC) [Entitic mass] 30.4 pg Normal 26.0-34.0 [facility] Comment on above: Order Comment: Speci men Type: BLOOD SPECIMENOrdering Facility: [facility] Address: [address] [place] [address] Performed By: #### 5 7021-8 ####[facility] LABORATORYCLIA [id number] [place] [address] [place] MCHC (RBC) [Mass/Vol] 32.8 g/dL Normal 30.5-36.0 [facility] Comment on above: Order Comment: Speci men Type: BLOOD SPECIMENOrdering Facility: [facility] Address: [address] [place] [address] Performed By: #### 5 7021-8 ####[facility] LABORATORYCLIA [id number] [place] [address] [place] [facility] MCV (RBC) [Entitic vol] 92.6 fL Normal 80.0-100.0 [facility] Comment on above: Order Comment: Speci men Type: BLOOD SPECIMENOrdering Facility: [facility] Address: [address] [place] [address] Performed By: #### 5 7021-8 ####[place] LABORATORYCLIA [id number] [place] [address] [facility] [place] Monocytes (Bld) [#/Vol] 0.42 10*3/uL Normal <0.87 [facility] Comment on above: Order Comment: Speci men Type: BLOOD SPECIMENOrdering Facility: [facility] Address: [address] [place] [address] Performed By: #### 5 7021-8 ####[facility] LABORATORYCLIA [id number] [address] [place] Monocytes/100 WBC (Bld) 11.2 % Normal [facility] Comment on above: Order Comment: Speci men Type: BLOOD SPECIMENOrdering Facility: [facility] Address: [address] [place] [address] Performed By: #### 5 7021-8 ####[facility] LABORATORYCLIA [id number] [place] [address] [place] Neutrophils (Bld) [#/Vol] 1.55 10*3/uL Normal 1.45-7.50 [facility] Comment on above: Order Comment: Speci men Type: BLOOD SPECIMENOrdering Facility: [facility] Address: [address] [place] [address] Performed By: #### 5 7021-8 ####[facility] LABORATORYCLIA [id number] [place] [address] [place] Neutrophils/100 WBC (Bld) 41.2 % Normal [facility] Comment on above: Order Comment: Speci men Type: BLOOD SPECIMENOrdering Facility: [facility] Address: [address] [place] [address] Performed By: #### 5 7021-8 ####[facility] LABORATORYCLIA [id number] [place] [address] [place] Nucleated RBC (Bld) [#/Vol] 10*3/uL Normal <0.01 [facility] Comment on above: Order Comment: Speci men Type: BLOOD SPECIMENOrdering Facility: [facility] Address: [address] [place] [address] Performed By: #### 5 7021-8 ####[facility] LABORATORYCLIA [id number] [place] [address] [place] Nucleated RBC/100 WBC (Bld) [Ratio] 0.0 /100 WBC Normal [facility] Comment on above: Order Comment: Speci men Type: BLOOD SPECIMENOrdering Facility: [facility] Address: [address] [place] [address] Performed By: #### 5 7021-8 ####[facility] LABORATORYCLIA [id number] [place] [address] [place] Platelet mean volume (Bld) [Entitic vol] 11.0 fL Normal 9.0-12.7 [facility] Comment on above: Order Comment: Speci men Type: BLOOD SPECIMENOrdering Facility: [facility] Address: [address] [place] [address] Performed By: #### 5 7021-8 ####[facility] LABORATORYCLIA [id number] [place] [address] [place] Platelets (Bld) [#/Vol] 212 10*3/uL Normal 150-400 [facility] Comment on above: Order Comment: Speci men Type: BLOOD SPECIMENOrdering Facility: [facility] Address: [address] [place] [address] Performed By: #### 5 7021-8 ####[facility] LABORATORYCLIA [id number] [place] [address] [place] RBC (Bld) [#/Vol] 3.36 10*6/uL Low 3.90-5.20 [facility] Comment on above: Order Comment: Speci men Type: BLOOD SPECIMENOrdering Facility: [facility] Address: [address] [place] [address] Performed By: #### 5 7021-8 ####[facility] LABORATORYCLIA [id number] [place] [address] [place] WBC (Bld) [#/Vol] 3.76 10*3/uL Normal 3.70-11.00 [facility] Comment on above: Order Comment: Speci men Type: BLOOD SPECIMENOrdering Facility: [facility] Address: [address] [place] [address] Performed By: #### 5 7021-8 ####[facility] LABORATORYCLIA [id number] [place] [address] [place] Magnesium SerPl-mCncon 07-17 Magnesium [Mass/Vol] 1.9 mg/dL Normal 1.7-2.3 [facility] Comment on above: Order Comment: Speci men Type: BLOOD SPECIMENOrdering Facility: [facility] Address: [address] [place] [address] Performed By: #### 2 777-1, 85258-4, 93564-9 ####[facility] LABORATORYCLIA [id number] [place] [address] [place] Phosphate SerPl-mCncon 07-17 Phosphate [Mass/Vol] 4.7 mg/dL Normal 2.7-4.8 [facility] Comment on above: Order Comment: Speci men Type: BLOOD SPECIMENOrdering Facility: [facility] Address: [address] [place] [address] Performed By: #### 2 777-1, 09639-2, 03055-3 ####[place] LABORATORYCLIA [id number] [place] [address] [place] XR CHEST 1V FRONTAL PORTon 0 07-18-2023 XR CHEST 1V FRONTAL PORT Normal [facility] XR SMALL BOWEL SERIESon - XR SMALL BOWEL SERIES Normal [facility] Capillary blood glucose brie urement by glucometer (mass/volume)Ordered By: Camden Rodriguez on 07-17-2023 Glucose [Mass/Vol] 86 mg/dL Normal [facility] Comment on above: Random Glucose Refer ence Range is dependent on time and content of last meal. Glucose of more than 200 mg/dL in a nonstressed, ambulatory subject supports the diagnosis of Diabetes Mellitus. Result Comment: [place] Glucose Reference Range is dependent on time and content of last meal. Glucose of more than 200 mg/dL in a nonstressed, ambulatory subject supports the diagnosis of Diabetes Mellitus. PERFORMED BY: [place] [address] PATHOLOGIST AUTO WINDER BAUTISTA BAKER M.D. Performed By: #### G LULS #### Point of Care testing , Glucose Poct Glucometerson 0 07-17-2023 Commemt1 Glu2: Cleaned Meter Normal [facility] Comment on above: Result Comment: PERF ORMED BY: [place] [address] PATHOLOGIST AUTO WINDER BAUTISTA BAKER M.D. Performed By: #### H EPATIC, MG, LIPASE, CMP, CBC #### [facility] [address] [place] [address] Glucose [Mass/Vol] 90 mg/dL Normal [facility] Comment on above: Result Comment: [place] om Glucose Reference Range is dependent on time and content of last meal. Glucose of more than 200 mg/dL in a nonstressed, ambulatory subject supports the diagnosis of Diabetes Mellitus. Performed By: #### H EPATIC, MG, LIPASE, CMP, CBC #### [facility] [address] HISTORY PHYSICALon HISTORY PHYSICAL Normal [facility] NURSING PROGon 07-17-2023 NURSING PROG Normal [facility] No Panel InformationOrdered By: Camden Rodriguez on 07-17-2023 Bedside Glucose Comment Glu2: cleaned meter [facility] Alanine aminotransferase [En zymatic activity/volume] in Serum or PlasmaOrdered By: Shaan Sabillon on 07-16-2023 ALT [Catalytic activity/Vol] 39 U/L Normal 7-52 [facility] Comment on above: Performed By: #### A JOSEISTO RAY, CUU #### [address] Albumin [Mass/volume] in Ser um or Plasma by Bromocresol green (BCG) dye binding methoOrdered By: Shaan Sabillon on 07-16-2023 Albumin BCG dye [Mass/Vol] 4.3 g/dL 3.5-5.7 [facility] Alkaline phosphatase [Enzyma tic activity/volume] in Serum or PlasmaOrdered By: Shaan Sabillon on 07-16-2023 ALP [Catalytic activity/Vol] 57 U/L Normal 34-104 [facility] Comment on above: Performed By: #### A JOSESITO RAY, CUU #### [address] Aspartate aminotransferase [ Enzymatic activity/volume] in Serum or PlasmaOrdered By: Shaan Sabillon on 07-16-2023 AST [Catalytic activity/Vol] 43 U/L High 13-39 [facility] Comment on above: Performed By: #### A JOSESITO RAY, CUU #### [facility] [address] Automated basophil %Ordered By: Shaan Sabillon on 07-16-2023 Basophils/100 WBC (Bld) 0.7 % Normal . [facility] Comment on above: Performed By: #### A JOSESITO RAY, CUU #### [address] Automated basophil countOrde red By: Shaan Sabillon on 07-16-2023 Basophils (Bld) [#/Vol] 0.0 10*3/uL Normal 0.0-0.2 [facility] Comment on above: Result Comment: PERF ORMED BY: [place] [address] PATHOLOGIST AUTO WINDER BAUTISTA BAKER M.D. Performed By: #### A DDFLORECITA, [facility] HOSPITALJarrod, CUU #### [address] Automated blood monocyte cou ntOrdered By: Shaan Sabillon on 07-16-2023 Monocytes (Bld) [#/Vol] 0.3 10*3/uL Normal 0.0-0.8 [facility] Comment on above: Performed By: #### A CORY [facility] HOSPITALJarrod, CUU #### [address] Automated eosinophil %Ordere d By: Shaan Sabillon on 07-16-2023 Eosinophils/100 WBC (Bld) 0.5 % Normal . [facility] Comment on above: Performed By: #### A CORY [facility]ITALJarrod, CUU #### [address] Automated eosinophil countOr dered By: Shaan Sabillon on 07-16-2023 Eosinophils (Bld) [#/Vol] 0.0 10*3/uL Normal 0.0-0.45 [facility] Comment on above: Performed By: #### A DDONDAVON [facility] HOSPITALJarrod, CUU #### [address] Automated monocyte %Ordered By: Shaan Sabillon on 07-16-2023 Monocytes/100 WBC (Bld) 4.5 % Normal . [facility] Comment on above: Performed By: #### A DDFLORECITA [facility] HOSPITALG, CUU #### [place] [address] [place] Automated neutrophil %Ordere d By: Shaan Sabillon on 07-16-2023 Neutrophils/100 WBC (Bld) 75.6 % Normal . [facility] Comment on above: Performed By: #### A CORY, ALIYAHG, CUU #### [facility] [address] Basic Metabolic Panelon 06-17 Creatinine Clr Calc Pharmacy 117.42 Normal [facility] Comment on above: Performed By: #### A DDFAIZAUAPLUS, CG, CUU #### [facility] [address] GFR/1.73 sq M.predicted MDRD (S/P/Bld) [Vol rate/Area] mL/min/{1.73_m2} Normal [facility] Comment on above: Performed By: #### A CORY ELIS, CUU #### [address] Bilirubin Test strip Ql (U)O rdered By: Shaan Sabillon on 07-16-2023 Bilirubin Ql (U) Negative Negative [facility] Bilirubin.direct [Mass/volum e] in Serum or PlasmaOrdered By: Shaan Sabillon on 07-16-2023 Bilirubin.direct [Mass/Vol] 0.10 mg/dL 0.03-0.18 [facility] Bilirubin.total [Mass/volume ] in Serum or PlasmaOrdered By: Shaan Sabillon on 07-16-2023 Bilirubin [Mass/Vol] 0.6 mg/dL Normal 0.3-1.0 [facility] Comment on above: Performed By: #### A CORY, CG, CUU #### [address] abdomen pelvis w conon CT abdomen pelvis w con [facility] [place] [address] [place] [address] CT Scan Report Signed Patient: Abbey Garcia MR#: [id number] : 1990 Acct:[id number] Age/Sex: 33 / F ADM Date: 07/16/23 Loc: ER Room: Type: [facility] ER Attending Dr: Copies to: Shaan [...] excluded. Impression dictated by: Cornel Medel Jr., D.ORenetta07/16/2023 4:09 PM Dictation Location: [place] [address] Transcribed By: [facility] 07/16/23 1609 Dictated By: Cornel Medel Jr, DO 07/16/23 1606 Signed By: 07/16/23 1609 Normal [facility] Calcium [Mass/volume] in Ser um or PlasmaOrdered By: Shaan Sabillon on 07-16-2023 Calcium [Mass/Vol] 8.9 mg/dL Normal 8.6-10.3 [facility] Comment on above: Performed By: #### A DDONUAPLUS, UHCG, CUU #### [address] Carbon dioxide, total [Moles /volume] in Serum or PlasmaOrdered By: Shaan Sabillon on 07-16-2023 CO2 [Moles/Vol] 24.2 mmol/L Normal 21.0-31.0 [facility] Comment on above: Performed By: #### A DDONUAPLUS, UHCG, CUU #### [address] Chloride [Moles/volume] in S elder or PlasmaOrdered By: Shaan Sabillon on 07-16-2023 Chloride [Moles/Vol] 107 mmol/L Normal 98-107 [facility] Comment on above: Performed By: #### A DDONUAPLUS, UHCG, CUU #### [address] Color of Urine by AutoOrdere d By: Shaan Sabillon on 07-16-2023 Color (U) Yellow Normal Yellow [facility] Comment on above: Order Comment: Name Collection Type:: Clean-Voided Midstream Performed By: #### A DDONUAJESSICA, UHCG, CUU #### [address] Complete Blood Count Auto Di ffon 07-16-2023 Mean Corpuscular HGB Conc 34.2 g/dL Normal 32.0-35.0 [facility] Comment on above: Performed By: #### A DDONUAPLUS, UHCG, CUU #### [address] Monocytes/100 WBC (Bld) 16.79 % Normal 0.00-20.00 [facility] Comment on above: Performed By: #### A DDONUAPLUS, UHCG, CUU #### [address] NRBC% 0.0 /100{WBC} Normal 0-0.5 [facility] Comment on above: Performed By: #### A DDONUAPLUS, UHCG, CUU #### [address] Creatinine [Mass/volume] in Serum or PlasmaOrdered By: Shaan Sabillon on 07-16-2023 Creatinine [Mass/Vol] 0.72 mg/dL Normal 0.60-1.20 [facility] Comment on above: Performed By: #### A DDONUAPLUS, UHCG, CUU #### [address] Erythrocyte distribution wid th [Ratio] by Automated countOrdered By: Shaan Sabillon on 07-16-2023 Erythrocyte distribution width (RBC) [Ratio] 14.4 % Normal 11.9-15.3 [facility] Comment on above: Performed By: #### A DDONUAPLUS, UHCG, CUU #### [address] Erythrocytes [#/volume] in B lood by Automated countOrdered By: Shaan Sabillon on 07-16-2023 RBC (Bld) [#/Vol] 3.67 10*6/uL Normal 3.60-5.00 [facility] Comment on above: Performed By: #### A DDONUAJESSICA, BRITTANIECG, CUU #### [address] Glucose [Mass/volume] in Ser um or PlasmaOrdered By: Shaan Sabillon on 07-16-2023 Glucose [Mass/Vol] 82 mg/dL Normal 70-100 [facility] Comment on above: ADA recommended refe rence rangeRandom Glucose Reference Range is dependent on time and content of last meal. Glucose of more than 200 mg/dL in a nonstressed, ambulatory subject supports the diagnosis of Diabetes Mellitus. Result Comment: [place] om Glucose Reference Range is dependent on time and content of last meal. Glucose of more than 200 mg/dL in a nonstressed, ambulatory subject supports the diagnosis of Diabetes Mellitus. ADA recommended reference range Performed By: #### A DDONUAPLUS, UHCG, CUU #### [address] [place] [address] [place] HCG ( test) IA.rapi d Ql (U)Ordered By: Shaan Sabillon on 07-16-2023 HCG ( test) Ql (U) Negative [facility] HCG,Urineon 07-16-2023 Beta HCG ( test) Ql (U) Negative Normal [facility] Comment on above: Order Comment: Name Collection Type:: Clean-Voided Midstream Result Comment: PERF ORMED BY: [place] [address] PATHOLOGIST AUTO WINDER BAUTISTA BAKER M.D. Performed By: #### A DDONUAPLUS, UHCG, CUU #### [address] Hematocrit [Volume Fraction] of Blood by Automated countOrdered By: Shaan Sabillon on 07-16-2023 Hematocrit (Bld) [Volume fraction] 32.8 % Low 34.0-46.4 [facility] Comment on above: Performed By: #### A DDONUAPLUS, UHCG, CUU #### [address] Hemoglobin [Mass/volume] in BloodOrdered By: Shaan Sabillon on 07-16-2023 Hemoglobin (Bld) [Mass/Vol] 11.2 g/dL Low 11.8-15.4 [facility] Comment on above: Performed By: #### A DDONUAPLUS, UHCG, CUU #### [address] Hepatic Panelon 07-16-2023 Albumin [Mass/Vol] 4.3 g/dL Normal 3.5-5.7 [facility] Comment on above: Performed By: #### A DDONUAPLUS, UHCG, CUU #### [address] Bilirubin,Indirect 0.5 mg/dL Normal [facility] Comment on above: Performed By: #### A DDONUAPLUS, UHCG, CUU #### [place] [address] Bilirubin.indirect [Mass/Vol] 0.10 mg/dL Normal 0.03-0.18 [facility] Comment on above: Performed By: #### A JOSESITO RAY, CUU #### [address] Ketones Auto test strip (U) [Mass/Vol]Ordered By: Shaan Sabillon on 07-16-2023 Ketones (U) [Mass/Vol] Negative Negative [facility] Leukocytes [#/volume] correc darvin for nucleated erythrocytes in Blood by Automated counOrdered By: Shaan Sabillon on 07-16-2023 WBC corrected for nucl RBC Auto (Bld) [#/Vol] 6.9 10*3/uL 3.8-11.6 [facility] Leukocytes [#/volume] in Blo od by Automated countOrdered By: Shaan Sabillon on 07-16-2023 WBC (Bld) [#/Vol] 6.9 10*3/uL Normal 3.8-11.6 [facility] Comment on above: Performed By: #### A JOSESITO RAY, CUU #### [address] Lipase [Enzymatic activity/v olume] in Serum or PlasmaOrdered By: Shaan Sabillon on 07-16-2023 Lipase [Catalytic activity/Vol] 45.0 U/L Normal 11.0-82.0 [facility] Comment on above: Result Comment: PERF ORMED BY: [place] [address] PATHOLOGIST AUTO WINDER BAUTISTA BAKER M.D. Performed By: #### A CORY ELIS, CUU #### [place] [address] [place] Lymphocytes [#/volume] in Bl ood by Automated countOrdered By: Shaan Sabillon on 07-16-2023 Lymphocytes (Bld) [#/Vol] 1.3 10*3/uL Normal 1.00-4.8 [facility] Comment on above: Performed By: #### A JOSESITO RAY, CUU #### [address] Lymphocytes/100 leukocytes i n Blood by Automated countOrdered By: Shaan Sabillon on 07-16-2023 Lymphocytes/100 WBC (Bld) 18.7 % Normal . [facility] Comment on above: Performed By: #### A JOSESITO RAY, CUU #### [address] MCH [Entitic mass] by Automa darvin countOrdered By: Shaan Sabillon on 07-16-2023 MCH (RBC) [Entitic mass] 30.5 pg Normal 24.7-34.3 [facility] Comment on above: Performed By: #### A JOSESITO RAY, CUU #### [address] MCHC Auto (RBC) [Mass/Vol]Or dered By: Shaan Sabillon on 07-16-2023 MCHC (RBC) [Mass/Vol] 34.2 g/dL 32.0-35.0 [facility] MCV [Entitic volume] by Auto mated countOrdered By: Shaan Sabillon on 07-16-2023 MCV (RBC) [Entitic vol] 89.2 fL Normal 80-100 [facility] Comment on above: Performed By: #### A JOSESITO RAY, CUU #### [address] Monocyte distribution width [Entitic volume] in Blood by AutomatedOrdered By: Shaan Sabillon on 07-16-2023 Monocyte distribution width Auto (Bld) [Entitic vol] 16.79 % 0.00-20.00 [facility] Neutrophils [#/volume] in Bl ood by Automated countOrdered By: Shaan Sabillon on 07-16-2023 Neutrophils (Bld) [#/Vol] 5.2 10*3/uL Normal 1.8-7.7 [facility] Comment on above: Performed By: #### A JOSESITO RAY, CUU #### [address] Nitrite Test strip Ql (U)Ord ered By: Shaan Sabillon on 07-16-2023 Nitrite Ql (U) Negative Negative [facility] No Panel InformationOrdered By: Shaan Sabillon on 07-16-2023 Estimated GFR (CKD-EPI) > 60.0 mL/Min [facility] Creatinine Clearance (Chem 117.42 [facility] Nucleated erythrocytes [Pres ence] in Blood by Automated countOrdered By: Shaan Sabillon on 07-16-2023 Nucleated RBC Auto Ql (Bld) 0.0 /100{WBC} 0-0.5 [facility] Platelet mean volume [Entiti c volume] in Blood by Automated countOrdered By: Shaan Sabillon on 07-16-2023 Platelet mean volume (Bld) [Entitic vol] 9.0 fL Normal 6.3-10.7 [facility] Comment on above: Performed By: #### A CORY ELIS, CUU #### [address] Platelets [#/volume] in Bloo d by Automated countOrdered By: Shaan Sabillon on 07-16-2023 Platelets (Bld) [#/Vol] 282 10*3/uL Normal 150-450 [facility] Comment on above: Performed By: #### A CORY ELIS, CUU #### [address] Potassium [Moles/volume] in Serum or PlasmaOrdered By: Shaan Sabillon on 07-16-2023 Potassium [Moles/Vol] 3.7 mmol/L Normal 3.5-5.1 [facility] Comment on above: Performed By: #### A CORY [facility]ITALJ[facility], CUU #### [address] Protein Auto test strip (U) [Mass/Vol]Ordered By: Shaan Sabillon on 07-16-2023 Protein (U) [Mass/Vol] Negative Negative [facility] Protein [Mass/volume] in Ser um or PlasmaOrdered By: Shaan Sabillon on 07-16-2023 Protein [Mass/Vol] 6.8 g/dL Normal 6.4-8.9 [facility] Comment on above: Performed By: #### A JOSESITO RAY, CUU #### [address] Serum globulin measurement b y calculation (mass/volume)Ordered By: Shaan Sabillon on 07-16-2023 Globulin (S) [Mass/Vol] 2.5 g/dL Normal [facility] Comment on above: Performed By: #### A JOSESITO RAY, CUU #### [address] Serum or plasma albumin/glob ulin mass ratioOrdered By: Shaan Sabillon on 07-16-2023 Albumin/Globulin [Mass ratio] 1.7 {ratio} [facility] Comment on above: Performed By: #### A JOSESITO RAY, CUU #### [address] Serum or plasma anion gap de terminationOrdered By: Shaan Sabillon on 07-16-2023 Anion gap [Moles/Vol] 9.5 mmol/L Normal 6.0-15.0 [facility] Comment on above: Performed By: #### A JOSESITO RAY, CUU #### [address] Serum or plasma non-glucuron idated bilirubin measurement (mass/volume)Ordered By: Shaan Sabillon on 07-16-2023 Bilirubin.indirect [Mass/Vol] 0.5 mg/dL [facility] Sodium [Moles/volume] in Ser um or PlasmaOrdered By: Shaan Sabillon on 07-16-2023 Sodium [Moles/Vol] 137 mmol/L Normal 136-145 [facility] Comment on above: Performed By: #### A JOSESITO RAY, CUU #### [address] Specific gravity Auto test s trip (U) [Rel density]Ordered By: Shaan Sabillon on 07-16-2023 Specific gravity (U) [Rel density] 1.006 1.001-1.030 [facility] Urea nitrogen [Mass/volume] in Serum or PlasmaOrdered By: Shaan Sabillon on 07-16-2023 Urea nitrogen [Mass/Vol] 14 mg/dL Normal 7-25 [facility] Comment on above: Performed By: #### A DDONUAPLUS, UHCG, CUU #### [address] Urinalysison 07-16-2023 Appearance (U) Clear Normal Clear [facility] Comment on above: Order Comment: Name Collection Type:: Clean-Voided Midstream Performed By: #### A DDONUAPLUS, UHCG, CUU #### [address] Bilirubin,Urine Negative Normal Negative [facility] Comment on above: Order Comment: Name Collection Type:: Clean-Voided Midstream Performed By: #### A DDONUAPLUS, UHCG, CUU #### [address] Glucose Ql (U) Normal Normal Normal [facility] Comment on above: Order Comment: Name Collection Type:: Clean-Voided Midstream Performed By: #### A DDONUAPLUS, UHCG, CUU #### [address] Ketones Ql (U) Negative Normal Negative [facility] Comment on above: Order Comment: Name Collection Type:: Clean-Voided Midstream Performed By: #### A DDONUAPLUS, UHCG, CUU #### [address] Leukocyte esterase Test strip Ql (U) Negative Normal Negative [facility] Comment on above: Order Comment: Name Collection Type:: Clean-Voided Midstream Performed By: #### A DDONUAPLUS, UHCG, CUU #### [address] Nitrite,Urine Negative Normal Negative [facility] Comment on above: Order Comment: Name Collection Type:: Clean-Voided Midstream Performed By: #### A DDONUAPLUS, UHCG, CUU #### [address] Occult Blood,Urine Negative Normal Negative [facility] Comment on above: Order Comment: Name Collection Type:: Clean-Voided Midstream Performed By: #### A DDONUAPLUS, UHCG, CUU #### [place] [address] [place] Protein,Urine Negative Normal Negative [facility] Comment on above: Order Comment: Name Collection Type:: Clean-Voided Midstream Performed By: #### A DDONUAPLUS, UHCG, CUU #### [address] Specificy [place],Urine 1.006 Normal 1.001-1.030 [facility] Comment on above: Order Comment: Name Collection Type:: Clean-Voided Midstream Performed By: #### A DDONUAPLUS, UHCG, CUU #### [place] [address] [place] Urobilinogen,Urine Normal Normal Normal [facility] Comment on above: Order Comment: Name Collection Type:: Clean-Voided Midstream Performed By: #### A DDONUAPLUS, UHCG, CUU #### [address] Urine clarity by refractomet ry automatedOrdered By: Shaan Sabillon on 07-16-2023 Clarity Refractometry automated (U) Clear Clear [facility] Urine glucose measurement by automated test strip (mass/volume)Ordered By: Shaan Sabillon on 07-16-2023 Glucose Auto test strip (U) [Mass/Vol] Normal mg/dL Normal [facility] Urine hemoglobin detection b y automated test stripOrdered By: Shaan Sabillon on 07-16-2023 Hemoglobin Auto test strip Ql (U) Negative Negative [facility] Urine leukocyte esterase det ection by automated test stripOrdered By: Shaan Sabillon on 07-16-2023 Leukocyte esterase Auto test strip Ql (U) Negative Negative [facility] Urine pH measurement by auto mated test stripOrdered By: Shaan Sabillon on 07-16-2023 pH (U) 7.5 [pH] Normal 5.0-9.0 [facility] Comment on above: Order Comment: Name Collection Type:: Clean-Voided Midstream Performed By: #### A DDONUAPLUS, UHCG, CUU #### [facility] [address] Urobilinogen Auto test strip (U) [Mass/Vol]Ordered By: Shaan Sabillon on 07-16-2023 Urobilinogen (U) [Mass/Vol] Normal mg/dL Normal [facility] CNPNon 07-13-2023 CNPN Normal [facility] Basic metabolic 2000 panelon 07-06-2023 Anion gap [Moles/Vol] 11 mmol/L Normal 9-18 [facility] Comment on above: Order Comment: Speci men Type: BLOOD SPECIMENOrdering Facility: [facility] Address: [address] [place] [address] Performed By: #### 2 4321-2 ####[facility] LABCLIA [id number] [place] [address] [place] Calcium [Mass/Vol] 8.7 mg/dL Normal 8.5-10.2 [facility] Comment on above: Order Comment: Speci men Type: BLOOD SPECIMENOrdering Facility: [facility] Address: [address] [place] [address] Performed By: #### 2 4321-2 ####[facility] LABCLIA [id number] [place] [address] [place] Chloride [Moles/Vol] 110 mmol/L High 97-105 [facility] Comment on above: Order Comment: Speci men Type: BLOOD SPECIMENOrdering Facility: [facility] Address: [address] [place] [address] Performed By: #### 2 4321-2 ####[facility] LABCLIA [id number] [place] [address] [place] CO2 [Moles/Vol] 20 mmol/L Low 22-30 [facility] Comment on above: Order Comment: Speci men Type: BLOOD SPECIMENOrdering Facility: [facility] Address: [address] [place] [address] Performed By: #### 2 4321-2 ####[facility] LABCLIA [id number] [place] [address] [place] Creatinine [Mass/Vol] 0.64 mg/dL Normal 0.58-0.96 [facility] Comment on above: Order Comment: Speci men Type: BLOOD SPECIMENOrdering Facility: [facility] Address: [address] [place] [address] Performed By: #### 2 4321-2 ####[facility] LABIA [id number] [address] [place] Creatinine and Glomerular filtration rate.predicted panel (S/P/Bld) 119 mL/min/1.73m??? Normal >=60 [facility] Comment on above: Order Comment: Speci men Type: BLOOD SPECIMENOrdering Facility: [facility] Address: [address] [place] [address] Result Comment: Jessica mated Glomerular Filtration Rate [...] Performed By: #### 2 4321-2 ####[facility] LABIA [id number] [place] [address] [place] Glucose [Mass/Vol] 89 mg/dL Normal 74-99 [facility] Comment on above: Order Comment: Speci men Type: BLOOD SPECIMENOrdering Facility: [facility] Address: [address] [id number] Result Comment: The [place] [employer] (ADA) provides guidance for cutoff [...] Standards of Medical Care in Diabetes 2016, [place] [employer]. Diabetes Care. 2016.39(Suppl 1). Performed By: #### 2 4321-2 ####[facility] LABCLIA [id number] [place] [address] [place] Potassium [Moles/Vol] 3.9 mmol/L Normal 3.7-5.1 [facility] Comment on above: Order Comment: Speci men Type: BLOOD SPECIMENOrdering Facility: [facility] Address: [address] [place], [place] [address] Performed By: #### 2 4321-2 ####[facility] LABCLIA [id number] [place] [address] [place] Sodium [Moles/Vol] 141 mmol/L Normal 136-144 [facility] Comment on above: Order Comment: Speci men Type: BLOOD SPECIMENOrdering Facility: [facility] Address: [address] [place] [address] Performed By: #### 2 4321-2 ####[facility] LABCLIA [id number] [place] [address] [place] Urea nitrogen [Mass/Vol] 14 mg/dL Normal 7-21 [facility] Comment on above: Order Comment: Speci men Type: BLOOD SPECIMENOrdering Facility: [facility] Address: [address] [id number] Performed By: #### 2 4321-2 ####[facility] LABCLIA [id number] [place] [address] [place] CBC W Auto Differential pane l (Bld)on 07-06-2023 Basophils (Bld) [#/Vol] 10*3/uL Normal <0.11 [facility] Comment on above: Order Comment: Speci men Type: BLOOD SPECIMENOrdering Facility: [facility] Address: [address] [place] [address] Performed By: #### 5 7021-8 ####[facility] LABCLIA [id number] [place] [address] [place] Basophils/100 WBC (Bld) 0.5 % Normal [facility] Comment on above: Order Comment: Speci men Type: BLOOD SPECIMENOrdering Facility: [facility] Address: [address] [place] [address] Performed By: #### 5 7021-8 ####[facility] LABCLIA [id number] [place] [address] [place] Differential cell count method Nom (Bld) Auto Normal [facility] Comment on above: Order Comment: Speci men Type: BLOOD SPECIMENOrdering Facility: [facility] Address: [address] [place] [address] Performed By: #### 5 7021-8 ####[facility] LABCLIA [id number] [place] [address] [place] Eosinophils (Bld) [#/Vol] 10*3/uL Normal <0.46 [facility] Comment on above: Order Comment: Speci men Type: BLOOD SPECIMENOrdering Facility: [facility] Address: [address] [place] [address] Performed By: #### 5 7021-8 ####[facility] LABCLIA [id number] [place] [address] [place] Eosinophils/100 WBC (Bld) 0.2 % Normal [facility] Comment on above: Order Comment: Speci men Type: BLOOD SPECIMENOrdering Facility: [facility] Address: [address] [place] [address] Performed By: #### 5 7021-8 ####[facility] LABCLIA [id number] [place] [address] [place] Erythrocyte distribution width (RBC) [Ratio] 14.0 % Normal 11.5-15.0 [facility] Comment on above: Order Comment: Speci men Type: BLOOD SPECIMENOrdering Facility: [facility] Address: [address] [place] [address] Performed By: #### 5 7021-8 ####[facility] LABCLIA [id number] [place] [address] [place] Hematocrit (Bld) [Volume fraction] 30.6 % Low 36.0-46.0 [facility] Comment on above: Order Comment: Speci men Type: BLOOD SPECIMENOrdering Facility: [facility] Address: [address] [place] [address] Performed By: #### 5 7021-8 ####[facility] LABIA [id number] [place] [address] [place] Hemoglobin (Bld) [Mass/Vol] 10.5 g/dL Low 11.5-15.5 [facility] Comment on above: Order Comment: Speci men Type: BLOOD SPECIMENOrdering Facility: [facility] Address: [address] [place] [address] Performed By: #### 5 7021-8 ####[facility] LABCLIA [id number] [place] [address] [place] Immature granulocytes (Bld) [#/Vol] 10*3/uL Normal <0.10 [facility] Comment on above: Order Comment: Speci men Type: BLOOD SPECIMENOrdering Facility: [facility] Address: [address] [place] [address] Performed By: #### 5 7021-8 ####[facility] LABCLIA [id number] [place] [address] [place] Immature granulocytes/100 WBC (Bld) 0.2 % Normal [facility] Comment on above: Order Comment: Speci men Type: BLOOD SPECIMENOrdering Facility: [facility] Address: [address] [place] [address] Performed By: #### 5 7021-8 ####[facility] LABCLIA [id number] [place] [address] [place] Lymphocytes (Bld) [#/Vol] 1.37 10*3/uL Normal 1.00-4.00 [facility] Comment on above: Order Comment: Speci men Type: BLOOD SPECIMENOrdering Facility: [facility] Address: [address] [place] [address] Performed By: #### 5 7021-8 ####[facility] LABCLIA [id number] [place] [address] [place] Lymphocytes/100 WBC (Bld) 31.2 % Normal [facility] Comment on above: Order Comment: Speci men Type: BLOOD SPECIMENOrdering Facility: [facility] Address: [address] [place] [address] Performed By: #### 5 7021-8 ####[facility] LABCLIA [id number] [place] [address] [place] MCH (RBC) [Entitic mass] 31.3 pg Normal 26.0-34.0 [facility] Comment on above: Order Comment: Speci men Type: BLOOD SPECIMENOrdering Facility: [facility] Address: [address] [place] [address] Performed By: #### 5 7021-8 ####[facility] LABCLIA [id number] [place] [address] [place] MCHC (RBC) [Mass/Vol] 34.3 g/dL Normal 30.5-36.0 [facility] Comment on above: Order Comment: Speci men Type: BLOOD SPECIMENOrdering Facility: [facility] Address: [address] [place] [address] Performed By: #### 5 7021-8 ####[facility] LABCLIA [id number] [place] [address] [place] MCV (RBC) [Entitic vol] 91.1 fL Normal 80.0-100.0 [facility] Comment on above: Order Comment: Speci men Type: BLOOD SPECIMENOrdering Facility: [facility] Address: [address] [place] [address] Performed By: #### 5 7021-8 ####[facility] LABCLIA [id number] [place] [address] [place] Monocytes (Bld) [#/Vol] 0.36 10*3/uL Normal <0.87 [facility] Comment on above: Order Comment: Speci men Type: BLOOD SPECIMENOrdering Facility: [facility] Address: [address] [place] [address] Performed By: #### 5 7021-8 ####[facility] LABCLIA [id number] [place] [address] [place] Monocytes/100 WBC (Bld) 8.2 % Normal [facility] Comment on above: Order Comment: Speci men Type: BLOOD SPECIMENOrdering Facility: [facility] Address: [address] [place] [address] Performed By: #### 5 7021-8 ####[facility] LABCLIA [id number] [place] [address] [place] Neutrophils (Bld) [#/Vol] 2.62 10*3/uL Normal 1.45-7.50 [facility] Comment on above: Order Comment: Speci men Type: BLOOD SPECIMENOrdering Facility: [facility] Address: [address] [place] [address] Performed By: #### 5 7021-8 ####[facility] LABCLIA [id number] [place] [address] [place] Neutrophils/100 WBC (Bld) 59.7 % Normal [facility] Comment on above: Order Comment: Speci men Type: BLOOD SPECIMENOrdering Facility: [facility] Address: [address] [place] [address] Performed By: #### 5 7021-8 ####[facility] LABIA [id number] [place] [address] [place] Nucleated RBC (Bld) [#/Vol] 10*3/uL Normal <0.01 [facility] Comment on above: Order Comment: Speci men Type: BLOOD SPECIMENOrdering Facility: [facility] Address: [address] [place] [address] Performed By: #### 5 7021-8 ####[facility] LABIA [id number] [place] [address] [place] Nucleated RBC/100 WBC (Bld) [Ratio] 0.0 /100 WBC Normal [facility] Comment on above: Order Comment: Speci men Type: BLOOD SPECIMENOrdering Facility: [facility] Address: [address] [place] [address] Performed By: #### 5 7021-8 ####[facility] LABCLIA [id number] [place] [address] [place] Platelet mean volume (Bld) [Entitic vol] 11.2 fL Normal 9.0-12.7 [facility] Comment on above: Order Comment: Speci men Type: BLOOD SPECIMENOrdering Facility: [facility] Address: [address] [place] [address] Performed By: #### 5 7021-8 ####[facility] LABCLIA [id number] [place] [address] [place] Platelets (Bld) [#/Vol] 219 10*3/uL Normal 150-400 [facility] Comment on above: Order Comment: Speci men Type: BLOOD SPECIMENOrdering Facility: [facility] Address: [address] [place] [address] Performed By: #### 5 7021-8 ####[facility] LABIA [id number] [place] [address] [place] RBC (Bld) [#/Vol] 3.36 10*6/uL Low 3.90-5.20 [facility] Comment on above: Order Comment: Speci men Type: BLOOD SPECIMENOrdering Facility: [facility] Address: [address] [place] [address] Performed By: #### 5 7021-8 ####[facility] LABIA [id number] [place] [address] [place] WBC (Bld) [#/Vol] 4.39 10*3/uL Normal 3.70-11.00 [facility] Comment on above: Order Comment: Speci men Type: BLOOD SPECIMENOrdering Facility: [facility] Address: [address] [place] [address] Performed By: #### 5 7021-8 ####[facility] [id number] [place] [address] [place] CNOVon 07-06-2023 CNOV Normal [facility] CNPTOUTREACHon 07-06-2023 CNPTOUTREACH Normal [facility] CT FLANK WO IVCONon 07-06-19 CT FLANK WO IVCON Normal [facility] ED NOTEon 07-06-2023 ED NOTE Normal [facility] ED NOTE HNO ID: [id number] Author: TG MUNOZ, RN Service: Emergency Medicine Author Type: Registered Nurse Type: ED Notes Filed: 07/06/2023 20:35 Note Text: 0 mL post void residual. Normal [facility] ED NOTE HNO ID: [id number] Author: CORIE LINK RN Service: ? Author Type: Registered Nurse Type: ED Notes Filed: 07/06/2023 15:58 Note Text: Bed: E18-10 Expected date: Expected time: Means of arrival: Comments: HOLD: JOSE Normal [facility] ED PROV NOTEon 07-06-2023 ED PROV NOTE Normal [facility] ED Triage Noteon 07-06-2023 ED Triage Note Normal [facility] URINALYSIS, REFLEX MICROSCOP ICon 07-06-2023 Bilirubin Ql (U) Negative Negative [facility] Clarity (Unsp spec) Clear Clear [facility] Color (U) Light Yellow Yellow [facility] Glucose Test strip (U) [Mass/Vol] Negative Trace, Negative [facility] Hemoglobin Ql (U) Negative Negative, Trace [facility] Interpretation and review of laboratory results Normal [facility] Ketones Ql (U) Negative Negative, Trace [facility] Leukocyte esterase Test strip Ql (U) Negative Negative, 25 Patito/uL [facility] Nitrite Ql (U) Negative Negative [facility] pH (U) 7.0 [pH] 5.0 - 8.0 [facility] Protein (U) [Mass/Vol] Negative Trace, Negative [facility] Specific gravity (U) [Rel density] 1.010 1.005 - 1.030 [facility] Urobilinogen Ql (U) Normal Normal [facility] Bilirubin Ql (U) Negative Normal Negative [facility] Comment on above: Order Comment: Speci men Type: URINE SPECIMENOrdering Facility: [facility] Address: [address] [place] [address] Performed By: #### L [id number] ####[facility] LABCLIA [id number] [place] [address] [place] Clarity (Unsp spec) Clear Normal Clear [facility] Comment on above: Order Comment: Speci men Type: URINE SPECIMENOrdering Facility: [facility] Address: [address] [place] [address] Performed By: #### L [id number] ####[facility] LABCLIA [id number] [place] [address] [place] Color (U) Light Yellow Normal Yellow [facility] Comment on above: Order Comment: Speci men Type: URINE SPECIMENOrdering Facility: [facility] Address: [address] [place] [address] Performed By: #### L [id number] ####[facility] LABCLIA [id number] [place] [address] [place] Glucose Test strip (U) [Mass/Vol] Negative Normal Trace, Negative [facility] Comment on above: Order Comment: Speci men Type: URINE SPECIMENOrdering Facility: [facility] Address: [address] [place] [address] Performed By: #### L [id number] ####[facility] LABCLIA [id number] [place] [address] [place] Hemoglobin Ql (U) Negative Normal Negative, Trace Cl [facility] Comment on above: Order Comment: Speci men Type: URINE SPECIMENOrdering Facility: [facility] Address: [address] [place] [address] Performed By: #### L [id number] ####[facility] LABCLIA [id number] [place] [address] [place] Ketones Ql (U) Negative Normal Negative, Trace [facility] Comment on above: Order Comment: Speci men Type: URINE SPECIMENOrdering Facility: [facility] Address: [address] [place] [address] Performed By: #### L [id number] ####[facility] LABCLIA [id number] [place] [address] [place] Leukocyte esterase Test strip Ql (U) Negative Normal Negative, 25 Patito/uL [facility] Comment on above: Order Comment: Speci men Type: URINE SPECIMENOrdering Facility: [facility] Address: [address] [place] [address] Performed By: #### L [id number] ####[facility] LABCLIA [id number] [place] [address] [place] Nitrite Ql (U) Negative Normal Negative [facility] Comment on above: Order Comment: Speci men Type: URINE SPECIMENOrdering Facility: [facility] Address: [address] [place] [address] Performed By: #### L [id number] ####[facility] LABCLIA [id number] [place] [address] [place] pH (U) 7.0 [pH] Normal 5.0-8.0 [facility] Comment on above: Order Comment: Speci men Type: URINE SPECIMENOrdering Facility: [facility] Address: [address] [place] [address] Performed By: #### L [id number] ####[facility] LABIA [id number] [place] [address] [place] Protein (U) [Mass/Vol] Negative Normal Trace, Negative [facility] Comment on above: Order Comment: Speci men Type: URINE SPECIMENOrdering Facility: [facility] Address: [address] [place] [address] Performed By: #### L [id number] ####[facility] LABIA [id number] [place] [address] [place] Specific gravity (U) [Rel density] 1.010 Normal 1.005-1.030 [facility] Comment on above: Order Comment: Speci men Type: URINE SPECIMENOrdering Facility: [facility] Address: [address] [place] [address] Performed By: #### L [id number] ####[facility] LABCLIA [id number] [place] [address] [place] Urobilinogen Ql (U) Normal Normal Normal [facility] Comment on above: Order Comment: Speci men Type: URINE SPECIMENOrdering Facility: [facility] Address: [address] [place] [address] Performed By: #### L [id number] ####[facility] LABCLIA [id number] [place] [address] [place] Urinalysis complete panel (U )on 07-06-2023 Bacteria LM.HPF (Urine sed) [#/Area] Negative Normal Negative [facility] Comment on above: Order Comment: Speci men Type: URINE SPECIMENOrdering Facility: [facility] Address: [address] [place] [address] Performed By: #### 2 4356-8 ####[facility] LABCLIA [id number] [place] [address] [place] Bilirubin Ql (U) Negative Normal Negative [facility] Comment on above: Order Comment: Speci men Type: URINE SPECIMENOrdering Facility: [facility] Address: [address] [place] [address] Performed By: #### 2 4356-8 ####[facility] LABCLIA [id number] [place] [address] [place] Clarity (Unsp spec) Clear Normal Clear [facility] Comment on above: Order Comment: Speci men Type: URINE SPECIMENOrdering Facility: [facility] Address: [address] [place] [address] Performed By: #### 2 4356-8 ####[facility] LABCLIA [id number] [place] [address] [place] Color (U) Yellow Normal Yellow [facility] Comment on above: Order Comment: Speci men Type: URINE SPECIMENOrdering Facility: [facility] Address: [address] [place] [address] Performed By: #### 2 4356-8 ####[facility] LABCLIA [id number] [place] [address] [place] Epithelial cells LM.HPF (Urine sed) [#/Area] None Seen Normal [facility] Comment on above: Order Comment: Speci men Type: URINE SPECIMENOrdering Facility: [facility] Address: [address] [place] [address] Performed By: #### 2 4356-8 ####[facility] LABCLIA [id number] [place] [address] [place] Glucose Test strip (U) [Mass/Vol] Negative Normal Negative [facility] Comment on above: Order Comment: Speci men Type: URINE SPECIMENOrdering Facility: [facility] Address: [address] [place] [address] Performed By: #### 2 4356-8 ####[facility] LABCLIA [id number] [place] [address] [place] Hemoglobin Ql (U) Negative Normal Negative [facility] Comment on above: Order Comment: Speci men Type: URINE SPECIMENOrdering Facility: [facility] Address: [address] [place] [address] Performed By: #### 2 4356-8 ####[facility] LABCLIA [id number] [place] [address] [place] Hyaline casts (Urine sed) [#/Area] 0 /[LPF] Normal 0 /LPF [facility] Comment on above: Order Comment: Speci men Type: URINE SPECIMENOrdering Facility: [facility] Address: [address] [place] [address] Performed By: #### 2 4356-8 ####[facility] LABCLIA [id number] [address] [place] Ketones Ql (U) Negative Normal Negative [facility] Comment on above: Order Comment: Speci men Type: URINE SPECIMENOrdering Facility: [facility] Address: [address] [place] [address] Performed By: #### 2 4356-8 ####[facility] LABCLIA [id number] [place] [address] [place] Leukocyte esterase Test strip Ql (U) Negative Normal Negative [facility] Comment on above: Order Comment: Speci men Type: URINE SPECIMENOrdering Facility: [facility] Address: [address] [place] [address] Performed By: #### 2 4356-8 ####[facility] LABCLIA [id number] [place] [address] [place] Nitrite Ql (U) Negative Normal Negative [facility] Comment on above: Order Comment: Speci men Type: URINE SPECIMENOrdering Facility: [facility] Address: [address] [place] [address] Performed By: #### 2 4356-8 ####[facility] LABCLIA [id number] [place] [address] [place] pH (U) 7.5 [pH] Normal <8.5 [facility] Comment on above: Order Comment: Speci men Type: URINE SPECIMENOrdering Facility: [facility] Address: [address] [place] [address] Performed By: #### 2 4356-8 ####[facility] LABCLIA [id number] [place] [address] [place] Protein (U) [Mass/Vol] Negative Normal Negative [facility] Comment on above: Order Comment: Speci men Type: URINE SPECIMENOrdering Facility: [facility] Address: [address] [place] [address] Performed By: #### 2 4356-8 ####[facility] LABCLIA [id number] [place] [address] [place] RBC LM.HPF (Urine sed) [#/Area] 0-2 /HPF Normal 0-2 /HPF [facility] Comment on above: Order Comment: Speci men Type: URINE SPECIMENOrdering Facility: [facility] Address: [address] [place] [address] Performed By: #### 2 4356-8 ####[facility] [id number] [place] [address] [place] Specific gravity (U) [Rel density] 1.020 Normal 1.005-1.030 [facility] Comment on above: Order Comment: Speci men Type: URINE SPECIMENOrdering Facility: [facility] Address: [address] [place] [address] Performed By: #### 2 4356-8 ####[facility] [id number] [place] [address] [place] Urobilinogen Ql (U) 1.0 EU/dL Normal 0.2-1.0 EU/dL [facility] Comment on above: Order Comment: Speci men Type: URINE SPECIMENOrdering Facility: [facility] Address: [address] [place] [address] Performed By: #### 2 4356-8 ####[facility] [id number] [place] [address] [place] WBC LM.HPF (Urine sed) [#/Area] 0-5 /HPF Normal 0-5 /HPF [facility] Comment on above: Order Comment: Speci men Type: URINE SPECIMENOrdering Facility: [facility] Address: [address] [place] [address] Performed By: #### 2 4356-8 ####[facility] [id number] [place] [address] [place] XR CHEST 2V FRONTAL/LATon XR CHEST 2V FRONTAL/LAT Normal [facility] Glucose Test strip manual (B ld) [Mass/Vol]on 07-03-2023 Glucose [Mass/Vol] 121 mg/dL High 74 - 99 mg/dL [facility] Interpretation and review of laboratory results Abnormal [facility] Glucose [Mass/Vol] 121 mg/dL High 74-99 [facility] Comment on above: Performed By: #### 2 4356-8 #### MELISA Galvan ([id number]) [facility] () [address] [place] [address] CBC panel Auto (Bld)on 07-01 Erythrocyte distribution width (RBC) [Ratio] 13.4 % 11.5 - 14.5 % [facility] Hematocrit (Bld) [Volume fraction] 35.5 % Low 36.0 - 46.0 % [facility] Hemoglobin (Bld) [Mass/Vol] 11.8 g/dL Low 12.0 - 16.0 g/dL [facility] Interpretation and review of laboratory results Abnormal [facility] MCH (RBC) [Entitic mass] 30.3 pg 26.0 - 34.0 pg [facility] MCHC (RBC) [Mass/Vol] 33.2 g/dL 32.0 - 36.0 g/dL [facility] MCV (RBC) [Entitic vol] 91 fL 80 - 100 fL [facility] Nucleated RBC/100 WBC (Bld) [Ratio] 0.0 % [facility] Platelets (Bld) [#/Vol] 223 10*3/uL [facility] RBC (Bld) [#/Vol] 3.89 10*6/uL Low [facility] WBC (Bld) [#/Vol] 4.5 10*3/uL [facility] Erythrocyte distribution width (RBC) [Ratio] 13.4 % Normal 11.5-14.5 [facility] Comment on above: Performed By: #### 2 4356-8 #### MELISA Galvan ([id number]) [facility] () [address] [place] [address] Hematocrit (Bld) [Volume fraction] 35.5 % Low 36.0-46.0 [facility] Comment on above: Performed By: #### 2 4356-8 #### MELISA Galvan (31760) [facility] () [address] [place] [address] Hemoglobin (Bld) [Mass/Vol] 11.8 g/dL Low 12.0-16.0 [facility] Comment on above: Performed By: #### 2 4356-8 #### MELISA Galvan ([id number]) [facility] () [address] [place] [address] MCH (RBC) [Entitic mass] 30.3 pg Normal 26.0-34.0 [facility] Comment on above: Performed By: #### 2 4356-8 #### MELISA Galvan ([id number]) [facility] () [address] [place] [address] MCHC (RBC) [Mass/Vol] 33.2 g/dL Normal 32.0-36.0 [facility] Comment on above: Performed By: #### 2 4356-8 #### MELISA Galvan ([id number]) [facility] () [address] [place] [address] MCV (RBC) [Entitic vol] 91 fL Normal 80-100 [facility] Comment on above: Performed By: #### 2 4356-8 #### MELISA Galvan ([id number]) [facility] () [address] [place] [address] Nucleated RBC/100 WBC (Bld) [Ratio] 0.0 /100 WBCs Normal 0.0-0.0 [facility] Comment on above: Performed By: #### 2 4356-8 #### MELISA Galvan ([id number]) [facility] () [address] [place] [address] Platelets (Bld) [#/Vol] 223 x10*3/uL Normal 150-450 [facility] Comment on above: Performed By: #### 2 4356-8 #### MELISA Galvan ([id number]) [facility] () [address] [place] [address] RBC (Bld) [#/Vol] 3.89 x10*6/uL Low 4.00-5.20 [facility] Comment on above: Performed By: #### 2 4356-8 #### MELISA Galvan ([id number]) [facility] () [address] [place] [address] WBC (Bld) [#/Vol] 4.5 x10*3/uL Normal 4.4-11.3 [facility] Comment on above: Performed By: #### 2 4356-8 #### MELISA Galvan ([id number]) [facility] () [address] [place] [address] Glucose Test strip manual (B ld) [Mass/Vol]on 07-02-2023 Glucose [Mass/Vol] 103 mg/dL High 74 - 99 mg/dL [facility] Interpretation and review of laboratory results Abnormal [facility] Glucose [Mass/Vol] 103 mg/dL High 74-99 [facility] Comment on above: Performed By: #### 2 4356-8 #### MELISA Galvan ([id number]) [facility] () [address] [place] [address] Glucose [Mass/Vol] 112 mg/dL High 74 - 99 mg/dL [facility] Interpretation and review of laboratory results Abnormal [facility] Glucose [Mass/Vol] 112 mg/dL High 74-99 [facility] Comment on above: Performed By: #### 2 4356-8 #### MELISA Galvan ([id number]) [facility] () [address] [place] [address] Glucose [Mass/Vol] 99 mg/dL 74 - 99 mg/dL [facility] Interpretation and review of laboratory results Normal [facility] Glucose [Mass/Vol] 99 mg/dL Normal 74-99 [facility] Comment on above: Performed By: #### 2 4356-8 #### MELISA Galvan (54945) [facility] () [address] [place] [address] Glucose [Mass/Vol] 135 mg/dL High 74 - 99 mg/dL [facility] Interpretation and review of laboratory results Abnormal [facility] Glucose [Mass/Vol] 135 mg/dL High 74-99 [facility] Comment on above: Performed By: #### 2 4356-8 #### MELISA Galvan ([id number]) [facility] () [address] [place] [address] Renal function 2000 panelon 07-02-2023 Albumin [Mass/Vol] 4.0 g/dL 3.5 - 5.0 g/dL [facility] Anion gap [Moles/Vol] 11 mmol/L NINF - 19 mmol/L [facility] Calcium [Mass/Vol] 8.6 mg/dL 8.5 - 10.4 mg/dL [facility] Chloride [Moles/Vol] 103 mmol/L 97 - 107 mmol/L [facility] CO2 [Moles/Vol] 23 mmol/L Low 24 - 31 mmol/L [facility] Creatinine [Mass/Vol] 0.70 mg/dL 0.40 - 1.60 mg/dL [facility] eGFR - PINF [facility] Comment on above: Calculations of jessica mated GFR are performed using the 2020 CKD-EPI Study Refit equation without the race variable for the IDMS-Traceable creatinine methods. https://jasn.asnjournals.org/content//ASN.41300248 88 Glucose [Mass/Vol] 101 mg/dL High 65 - 99 mg/dL [facility] Interpretation and review of laboratory results Abnormal [facility] Phosphate [Mass/Vol] 4.0 mg/dL 2.5 - 4.5 mg/dL [facility] Potassium [Moles/Vol] 3.9 mmol/L 3.4 - 5.1 mmol/L [facility] Sodium [Moles/Vol] 137 mmol/L 133 - 145 mmol/L [facility] Urea nitrogen [Mass/Vol] 13 mg/dL 8 - 25 mg/dL [facility] Albumin [Mass/Vol] 4.0 g/dL Normal 3.5-5.0 [facility] Comment on above: Performed By: #### 2 4356-8 #### MELISA Galvan ([id number]) [facility] () [address] [place] [address] Anion gap [Moles/Vol] 11 mmol/L Normal <=19 [facility] Comment on above: Performed By: #### 2 4356-8 #### MELISA Galvan ([id number]) [facility] () [address] [place] [address] Calcium [Mass/Vol] 8.6 mg/dL Normal 8.5-10.4 [facility] Comment on above: Performed By: #### 2 4356-8 #### MELISA Galvan ([id number]) [facility] () [address] [place] [address] Chloride [Moles/Vol] 103 mmol/L Normal 97-107 [facility] Comment on above: Performed By: #### 2 4356-8 #### MELISA Galvan ([id number]) [facility] () [address] [place] [address] CO2 [Moles/Vol] 23 mmol/L Low 24-31 [facility] Comment on above: Performed By: #### 2 4356-8 #### MELISA Galvan ([id number]) [facility] () [address] [place] [address] Creatinine [Mass/Vol] 0.70 mg/dL Normal 0.40-1.60 [facility] Comment on above: Performed By: #### 2 4356-8 #### MELISA Galvan (85908) [facility] () [address] [place] [address] GFR/1.73 sq M.predicted MDRD (S/P/Bld) [Vol rate/Area] mL/min/{1.73_m2} Normal >60 [facility] Comment on above: Result Comment: Calc ulations of estimated GFR are performed using the 2020 CKD-EPI Study Refit equation without the race variable for the IDMS-Traceable creatinine methods. https://jasn.asnjournals.org/content//ASN.06462585 88 Performed By: #### 2 4356-8 #### MELISA Galvan (56325) [facility] () [address] [place] [address] Glucose [Mass/Vol] 101 mg/dL High 65-99 [facility] Comment on above: Performed By: #### 2 4356-8 #### MELISA Galvan ([id number]) [facility] () [address] [place] [address] Phosphate [Mass/Vol] 4.0 mg/dL Normal 2.5-4.5 [facility] Comment on above: Performed By: #### 2 4356-8 #### MELISA Galvan (97956) [facility] () [address] [place] [address] Potassium [Moles/Vol] 3.9 mmol/L Normal 3.4-5.1 [facility] Comment on above: Performed By: #### 2 4356-8 #### MELISA Galvan ([id number]) [facility] () [address] [place] [address] Sodium [Moles/Vol] 137 mmol/L Normal 133-145 [facility] Comment on above: Performed By: #### 2 4356-8 #### MELISA Galvan ([id number]) [facility] () [address] [place] [address] Urea nitrogen [Mass/Vol] 13 mg/dL Normal 8-25 [facility] Comment on above: Performed By: #### 2 4356-8 #### MELISA Galvan ([id number]) [facility] () [address] [place] [address] CBC panel Auto (Bld)on 06-30 Erythrocyte distribution width (RBC) [Ratio] 13.7 % 11.5 - 14.5 % [facility] Hematocrit (Bld) [Volume fraction] 36.7 % 36.0 - 46.0 % [facility] Hemoglobin (Bld) [Mass/Vol] 12.0 g/dL 12.0 - 16.0 g/dL [facility] Interpretation and review of laboratory results Abnormal [facility] MCH (RBC) [Entitic mass] 31.1 pg 26.0 - 34.0 pg [facility] MCHC (RBC) [Mass/Vol] 32.7 g/dL 32.0 - 36.0 g/dL [facility] MCV (RBC) [Entitic vol] 95 fL 80 - 100 fL [facility] Nucleated RBC/100 WBC (Bld) [Ratio] 0.0 % [facility] Platelets (Bld) [#/Vol] 228 10*3/uL [facility] RBC (Bld) [#/Vol] 3.86 10*6/uL [facility] WBC (Bld) [#/Vol] 3.3 10*3/uL [facility] Erythrocyte distribution width (RBC) [Ratio] 13.7 % Normal 11.5-14.5 [facility] Comment on above: Performed By: #### 5 8410-2 #### MELISA Galvan ([id number]) [facility] () [address] [place] [address] Hematocrit (Bld) [Volume fraction] 36.7 % Normal 36.0-46.0 [facility] Comment on above: Performed By: #### 5 8410-2 #### MELISA Galvan (42572) [facility] () [address] [place] [address] Hemoglobin (Bld) [Mass/Vol] 12.0 g/dL Normal 12.0-16.0 [facility] Comment on above: Performed By: #### 5 8410-2 #### MELISA Galvan (33054) [facility] () [address] [place] [address] MCH (RBC) [Entitic mass] 31.1 pg Normal 26.0-34.0 [facility] Comment on above: Performed By: #### 5 8410-2 #### MELISA Galvan ([id number]) [facility] () [address] [place] [address] MCHC (RBC) [Mass/Vol] 32.7 g/dL Normal 32.0-36.0 [facility] Comment on above: Performed By: #### 5 8410-2 #### MELISA Galvan ([id number]) [facility] () [address] [place] [address] MCV (RBC) [Entitic vol] 95 fL Normal 80-100 [facility] Comment on above: Performed By: #### 5 8410-2 #### MELISA Galvan (48132) [facility] () [address] [place] [address] Nucleated RBC/100 WBC (Bld) [Ratio] 0.0 /100 WBCs Normal 0.0-0.0 [facility] Comment on above: Performed By: #### 5 8410-2 #### MELISA Galvan (49338) [facility] () [address] [place] [address] Platelets (Bld) [#/Vol] 228 x10*3/uL Normal 150-450 [facility] Comment on above: Performed By: #### 5 8410-2 #### MELISA Galvan (71168) [facility] () [address] [place] [address] RBC (Bld) [#/Vol] 3.86 x10*6/uL Low 4.00-5.20 [facility] Comment on above: Performed By: #### 5 8410-2 #### MELISA Galvan (26066) [facility] () [address] [place] [address] WBC (Bld) [#/Vol] 3.3 x10*3/uL Low 4.4-11.3 [facility] Comment on above: Performed By: #### 5 8410-2 #### MELISA Galvan ([id number]) [facility] () [address] [place] [address] Glucose Test strip manual (B ld) [Mass/Vol]on 07-01-2023 Glucose [Mass/Vol] 104 mg/dL High 74 - 99 mg/dL [facility] Interpretation and review of laboratory results Abnormal [facility] Glucose [Mass/Vol] 104 mg/dL High 74-99 [facility] Comment on above: Performed By: #### 5 8410-2 #### MELISA Galvan (47199) [facility] () [address] [place] [address] Glucose [Mass/Vol] 92 mg/dL 74 - 99 mg/dL [facility] Interpretation and review of laboratory results Normal [facility] Glucose [Mass/Vol] 92 mg/dL Normal 74-99 [facility] Comment on above: Performed By: #### 5 8410-2 #### MELISA Galvan (59869) [facility] () [address] [place] [address] Glucose [Mass/Vol] 88 mg/dL 74 - 99 mg/dL [facility] Interpretation and review of laboratory results Normal [facility] Glucose [Mass/Vol] 88 mg/dL Normal 74-99 [facility] Comment on above: Performed By: #### 5 8410-2 #### MELISA Galvan (03073) [facility] () [address] [place] [address] Glucose [Mass/Vol] 105 mg/dL High 74 - 99 mg/dL [facility] Interpretation and review of laboratory results Abnormal [facility] Glucose [Mass/Vol] 105 mg/dL High 74-99 [facility] Comment on above: Performed By: #### 5 8410-2 #### MELISA Galvan ([id number]) [facility] () [address] [facility] [place] [address] Glucose [Mass/Vol] 86 mg/dL 74 - 99 mg/dL [facility] Interpretation and review of laboratory results Normal [facility] Glucose [Mass/Vol] 86 mg/dL Normal 74-99 [facility] Comment on above: Performed By: #### 5 8410-2 #### MELISA Galvan (54214) [facility] () [address] [place] [address] Glucose [Mass/Vol] 98 mg/dL 74 - 99 mg/dL [facility] Interpretation and review of laboratory results Normal [facility] Glucose [Mass/Vol] 98 mg/dL Normal 74-99 [facility] Comment on above: Performed By: #### 5 8410-2 #### MELISA Galvan ([id number]) [facility] () [address] [place] [address] Home Health Recordson 2023 Home Health Records [id number] Normal [facility] Magnesiumon 07-01-2023 Magnesium [Mass/Vol] 2.00 mg/dL 1.60 - 3.10 mg/dL [facility] Magnesium [Mass/Vol] 2.00 mg/dL Normal 1.60-3.10 [facility] Comment on above: Performed By: #### 5 8410-2 #### EMLISA Galvan ([id number]) [facility] () [address] [place] [address] Magnesium [Mass/Vol]on 06-30 Interpretation and review of laboratory results Normal [facility] Renal function 2000 panelon 07-01-2023 Albumin [Mass/Vol] 3.8 g/dL 3.5 - 5.0 g/dL Un [facility] Anion gap [Moles/Vol] 12 mmol/L NINF - 19 mmol/L [facility] Calcium [Mass/Vol] 8.5 mg/dL 8.5 - 10.4 mg/dL [facility] Chloride [Moles/Vol] 106 mmol/L 97 - 107 mmol/L [facility] CO2 [Moles/Vol] 21 mmol/L Low 24 - 31 mmol/L [facility] Creatinine [Mass/Vol] 0.70 mg/dL 0.40 - 1.60 mg/dL [facility] eGFR - PINF [facility] Comment on above: Calculations of jessica mated GFR are performed using the 2020 CKD-EPI Study Refit equation without the race variable for the IDMS-Traceable creatinine methods. https://jasn.asnjournals.org/content/early/ASN.93164865 88 Glucose [Mass/Vol] 113 mg/dL High 65 - 99 mg/dL [facility] Interpretation and review of laboratory results Abnormal [facility] Phosphate [Mass/Vol] 5.4 mg/dL High 2.5 - 4.5 mg/dL [facility] Potassium [Moles/Vol] 3.9 mmol/L 3.4 - 5.1 mmol/L [facility] Sodium [Moles/Vol] 139 mmol/L 133 - 145 mmol/L [facility] Urea nitrogen [Mass/Vol] 12 mg/dL 8 - 25 mg/dL [facility] Albumin [Mass/Vol] 3.8 g/dL Normal 3.5-5.0 [facility] Comment on above: Performed By: #### 5 8410-2 #### MELISA Galvan ([id number]) [facility] ([facility]) [address] [place] [address] Anion gap [Moles/Vol] 12 mmol/L Normal <=19 [facility] Comment on above: Performed By: #### 5 8410-2 #### MELISA Galvan ([id number]) [facility] () [address] [place] [address] Calcium [Mass/Vol] 8.5 mg/dL Normal 8.5-10.4 [facility] Comment on above: Performed By: #### 5 8410-2 #### MELISA Galvan ([id number]) [facility] () [address] [place] [address] Chloride [Moles/Vol] 106 mmol/L Normal 97-107 [facility] Comment on above: Performed By: #### 5 8410-2 #### MELISA Galvan ([id number]) [facility] () [address] [place] [address] CO2 [Moles/Vol] 21 mmol/L Low 24-31 [facility] Comment on above: Performed By: #### 5 8410-2 #### MELISA Galvan ([id number]) [facility] () [address] [place] [address] Creatinine [Mass/Vol] 0.70 mg/dL Normal 0.40-1.60 [facility] Comment on above: Performed By: #### 5 8410-2 #### MELISA Galvan ([id number]) [facility] () [address] [place] [address] GFR/1.73 sq M.predicted MDRD (S/P/Bld) [Vol rate/Area] mL/min/{1.73_m2} Normal >60 [facility] Comment on above: Result Comment: Calc ulations of estimated GFR are performed using the 2020 CKD-EPI Study Refit equation without the race variable for the IDMS-Traceable creatinine methods. https://jasn.asnjournals.org/content//ASN.27948120 88 Performed By: #### 5 8410-2 #### MELISA Galvan ([id number]) [facility] () [address] [place] [address] Glucose [Mass/Vol] 113 mg/dL High 65-99 [facility] Comment on above: Performed By: #### 5 8410-2 #### MELISA Galvan ([id number]) [facility] () [address] [place] [address] Phosphate [Mass/Vol] 5.4 mg/dL High 2.5-4.5 [facility] Comment on above: Performed By: #### 5 8410-2 #### MELISA Galvan ([id number]) [facility] () [address] [place] [address] Potassium [Moles/Vol] 3.9 mmol/L Normal 3.4-5.1 [facility] Comment on above: Performed By: #### 5 8410-2 #### MELISA Galvan (84263) [facility] () [address] [place] [address] Sodium [Moles/Vol] 139 mmol/L Normal 133-145 [facility] Comment on above: Performed By: #### 5 8410-2 #### MELISA Galvan ([id number]) [facility] () [address] [place] [address] Urea nitrogen [Mass/Vol] 12 mg/dL Normal 8-25 [facility] Comment on above: Performed By: #### 5 8410-2 #### MELISA Galvan ([id number]) [facility] () [address] [place] [address] Vascular US mesenteric arter y duplex completeon 07-01-2023 [facility] [address] [place] [address] Vascular Lab Report VASC US MESENTERIC ARTERY DUPLEX COMPLETE Patient Name: ABBEY FloresRenetta Oneli Physician: [id number] Sherry Magaña MD Study Date: 06/30/2023 Ordering Provider: [id number] JAMIL GAVIN MRN/PID: [id number] Fellow: Technologist: Leia Degroot RVT Date of /Age: 2 1990 / 33 years Technologist 2: Gender: F Admission Status: Inpatient Location Performed: [facility] 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 Report Amended Report Amended By: [id number] Magaña MD Date and Time: 06/30/2023 at [...] PSV 89 cm/s KEELY PSV 105 cm/s [id number] Magaña MD Brandy Magaña MD Electronically Amended 06/30/2023, 12:15 PM Final (Amended) Sherry Santillan MD - 07/01/[address] [address] Vascular Lab Report VASC US MESENTERIC ARTERY DUPLEX COMPLETE Patient Name: ABBEY GARCIA Reading Physician: [id number] Magaña MD Study Date: 06/30/2023 Ordering Provider: [id number] JAMIL GAVIN MRN/PID: [id number] Fellow: Technologist: Leia Degroot RVMary Jane Date of /Age: 2 1990 / 33 years Technologist 2: Gender: F Admission Status: Inpatient Location Performed: [facility] 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 Report Amended Report Amended By: [id number] Magaña MD Date and Time: 06/30/2023 at [...] PSV 89 cm/s KEELY PSV 105 cm/s [id number] Magaña MD Brandy Magaña MD Electronically Amended 06/30/2023, 12:15 PM Final (Amended) [facility] Work Phone: [facility] Work Phone: XR CHEST 1 VIEWon 07-01-2023 XR CHEST 1 VIEW Interpreted By: Dotty Salcido, STUDY: XR CHEST 1 VIEW 07/01/2023 1:30 pm INDICATION: Signs/Symptoms:PICC line position verification COMPARISON: 03/17/2023 ACCESSION NUMBER(S): [id number] ORDERING CLINICIAN: DOLORES COX TECHNIQUE: Single AP view chest FINDINGS: Cardiomediastinal silhouette is within normal limits. Right-sided PICC line identified with tip in the region of the mid SVC. No infiltrate or effusion is identified. Visualized osseous structures unremarkable. IMPRESSION: 1. Right PICC line placement with tip in the mid SVC. Signed by: Dotty Salcido 07/01/2023 1:46 PM Dictation workstation: [employer] [facility] XR Chest Single viewon 06-30 1. Right PICC line placement with tip in the mid SVC. Signed by: Dotty Salcido 07/01/2023 1:46 PM Dictation workstation: [employer] MMODAL Interpreted By: Dotty Salcido, STUDY: XR CHEST 1 VIEW 07/01/2023 1:30 pm INDICATION: Signs/Symptoms:PICC line position verification COMPARISON: 03/17/2023 ACCESSION NUMBER(S): [id number] ORDERING CLINICIAN: DOOLRES COX TECHNIQUE: Single AP view chest FINDINGS: [...] line position verification COMPARISON: 03/17/2023 ACCESSION NUMBER(S): [id number] ORDERING CLINICIAN: DOLORES COX TECHNIQUE: Single AP view chest FINDINGS: Cardiomediastinal silhouette is within normal limits. Right-sided PICC line identified with tip in the region of the mid SVC. No infiltrate or effusion is identified. Visualized osseous structures unremarkable. IMPRESSION: 1. Right PICC line placement with tip in the mid SVC. Signed by: Dotty Salcido 07/01/2023 1:46 PM Dictation workstation: [id number] [facility] Work Phone: Radiology Study observation (narrative) [facility] Work Phone: XR Chest Single viewOrdered By: Dotty Salcido on 07-01-2023 [facility] Work Phone: CBC panel Auto (Bld)on 06-29 Erythrocyte distribution width (RBC) [Ratio] 13.8 % 11.5 - 14.5 % [facility] Hematocrit (Bld) [Volume fraction] 32.2 % Low 36.0 - 46.0 % [facility] Hemoglobin (Bld) [Mass/Vol] 10.8 g/dL Low 12.0 - 16.0 g/dL [facility] Interpretation and review of laboratory results Abnormal [facility] MCH (RBC) [Entitic mass] 31.0 pg 26.0 - 34.0 pg [facility] MCHC (RBC) [Mass/Vol] 33.5 g/dL 32.0 - 36.0 g/dL [facility] MCV (RBC) [Entitic vol] 93 fL 80 - 100 fL [facility] Nucleated RBC/100 WBC (Bld) [Ratio] 0.0 % [facility] Platelets (Bld) [#/Vol] 217 10*3/uL [facility] RBC (Bld) [#/Vol] 3.48 10*6/uL Low [facility] WBC (Bld) [#/Vol] 5.0 10*3/uL [facility] Erythrocyte distribution width (RBC) [Ratio] 13.8 % Normal 11.5-14.5 [facility] Comment on above: Performed By: #### 5 8410-2 ####MELISA Galvan ([id number])[facility] ()[address] [place] [address] Hematocrit (Bld) [Volume fraction] 32.2 % Low 36.0-46.0 [facility] Comment on above: Performed By: #### 5 8410-2 ####MELISA Galavn ([id number])[facility] ()[address] [place] [address] Hemoglobin (Bld) [Mass/Vol] 10.8 g/dL Low 12.0-16.0 [facility] Comment on above: Performed By: #### 5 8410-2 ####MELISA Galvan (46964)[facility] ()[address] [place] [address] MCH (RBC) [Entitic mass] 31.0 pg Normal 26.0-34.0 [facility] Comment on above: Performed By: #### 5 8410-2 ####MELISA Galvan (75905)[facility] ()[address] [place] [address] MCHC (RBC) [Mass/Vol] 33.5 g/dL Normal 32.0-36.0 [facility] Comment on above: Performed By: #### 5 8410-2 ####MELISA Galvan ([id number])[facility] ()[address] [place] [address] MCV (RBC) [Entitic vol] 93 fL Normal 80-100 [facility] Comment on above: Performed By: #### 5 8410-2 ####MELISA Galvan ([id number])[facility] ()[address] [place] [address] Nucleated RBC/100 WBC (Bld) [Ratio] 0.0 /100 WBCs Normal 0.0-0.0 [facility] Comment on above: Performed By: #### 5 8410-2 ####MELISA Galvan ([id number])[facility] ()[address] [place] [address] Platelets (Bld) [#/Vol] 217 x10*3/uL Normal 150-450 [facility] Comment on above: Performed By: #### 5 8410-2 ####MELISA Galvan ([id number])[facility] ()[address] [place] [address] RBC (Bld) [#/Vol] 3.48 x10*6/uL Low 4.00-5.20 [facility] Comment on above: Performed By: #### 5 8410-2 ####MELISA Galvan (25362)[facility] ()[address] [place] [address] WBC (Bld) [#/Vol] 5.0 x10*3/uL Normal 4.4-11.3 [facility] Comment on above: Performed By: #### 5 8410-2 ####MELISA Galvan ([id number])[facility] ()[address] [place] [address] CT ANGIO ABDOMEN PELVIS W AN D/OR WO IV IV CONTRASTon 06-30-2023 CT ANGIO ABDOMEN PELVIS W AND/OR WO IV IV CONTRAST Interpreted By: Audie Gutierrez, STUDY: CT ANGIO ABDOMEN PELVIS W AND/OR WO IV IV CONTRAST; 06/30/2023 10:56 am INDICATION: Signs/Symptoms:Carmela ac disease; COMPARISON: 06/29/2023 ACCESSION NUMBER(S): [id number] ORDERING CLINICIAN: TIFFANIE MENDEZ TECHNIQUE: Contiguous axial [...] Audie Gutierrez 06/30/2023 12:06 PM Dictation workstation: [id number] [facility] Comment on above: Order Comment: CTA, [...] Audie Gutierrez 06/30/2023 12:06 PM Dictation workstation: [id number] MMODAL Interpreted By: Audie Gutierrez, STUDY: CT ANGIO ABDOMEN PELVIS W AND/OR WO IV IV CONTRAST; 06/30/2023 10:56 am INDICATION: Signs/Symptoms:Carmela ac disease; COMPARISON: 06/29/2023 ACCESSION NUMBER(S): [id number] ORDERING CLINICIAN: TIFFANIE MENDEZ TECHNIQUE: Contiguous axial [...] Signs/Symptoms:Carmela ac disease; COMPARISON: 06/29/2023 ACCESSION NUMBER(S): [id number] ORDERING CLINICIAN: TIFFANIE MENDEZ TECHNIQUE: Contiguous axial [...] Audie Gutierrez 06/30/2023 12:06 PM Dictation workstation: [id number] [facility] Work Phone: Radiology Study observation (narrative) [facility] Work Phone: CTA Abdominal vessels and Pe lvis vessels WO and W contrast IVOrdered By: Audie Gutierrez on 06-30-2023 [facility] Work Phone: Comprehensive metabolic 2000 panelOrdered By: Cristina Blevins on 06-30-2023 Albumin [Mass/Vol] 3.8 g/dL 3.5 - 5.0 g/dL [facility] ALP (Bld) [Catalytic activity/Vol] 51 U/L 35 - 125 U/L [facility] ALT [Catalytic activity/Vol] 35 U/L 5 - 40 U/L [facility] Anion gap [Moles/Vol] 13 mmol/L NINF - 19 mmol/L [facility] AST [Catalytic activity/Vol] 52 U/L High 5 - 40 U/L [facility] Bilirubin [Mass/Vol] mg/dL 0.1 - 1.2 mg/dL [facility] Calcium [Mass/Vol] 9.1 mg/dL 8.5 - 10.4 mg/dL [facility] Chloride [Moles/Vol] 90 mmol/L Low 97 - 107 mmol/L [facility] CO2 [Moles/Vol] 19 mmol/L Low 24 - 31 mmol/L [facility] Creatinine [Mass/Vol] 0.70 mg/dL 0.40 - 1.60 mg/dL [facility] eGFR - PINF [facility] Comment on above: Calculations of jessica mated GFR are performed using the 2020 CKD-EPI Study Refit equation without the race variable for the IDMS-Traceable creatinine methods. https://jasn.asnjournals.org/content//ASN.44734560 88 Glucose [Mass/Vol] 920 mg/dL Critically high 65 - 99 mg/d L [facility] Comment on above: Result rechecked Possible IV contamination. Results do not correlate with previous and post results. Patient was redraw . Interpretation and review of laboratory results Abnormal [facility] Potassium [Moles/Vol] 6.8 mmol/L Critically high 3.4 - 5.1 mmol/L [facility] Comment on above: Result rechecked Possible IV contamination. Results do not correlate with previus and post results. Patient was redrawn. Protein [Mass/Vol] 6.3 g/dL 5.9 - 7.9 g/dL Un [facility] Sodium [Moles/Vol] 122 mmol/L Low 133 - 145 mmol/L [facility] Comment on above: Result rechecked Urea nitrogen [Mass/Vol] 15 mg/dL 8 - 25 mg/dL [facility] Comprehensive metabolic 2000 panelon 06-30-2023 Albumin [Mass/Vol] 3.8 g/dL 3.5 - 5.0 g/dL Un [facility] ALP (Bld) [Catalytic activity/Vol] 52 U/L 35 - 125 U/L [facility] ALT [Catalytic activity/Vol] 34 U/L 5 - 40 U/L [facility] Anion gap [Moles/Vol] 10 mmol/L NINF - 19 mmol/L [facility] AST [Catalytic activity/Vol] 43 U/L High 5 - 40 U/L [facility] Bilirubin [Mass/Vol] 0.3 mg/dL 0.1 - 1.2 mg/dL [facility] Calcium [Mass/Vol] 8.8 mg/dL 8.5 - 10.4 mg/dL [facility] Chloride [Moles/Vol] 104 mmol/L 97 - 107 mmol/L [facility] CO2 [Moles/Vol] 23 mmol/L Low 24 - 31 mmol/L [facility] Creatinine [Mass/Vol] 0.60 mg/dL 0.40 - 1.60 mg/dL [facility] eGFR - PINF [facility] Comment on above: Calculations of jessica mated GFR are performed using the 2020 CKD-EPI Study Refit equation without the race variable for the IDMS-Traceable creatinine methods. https://jasn.asnjournals.org/content//ASN.71988485 88 Glucose [Mass/Vol] 136 mg/dL High 65 - 99 mg/dL [facility] Interpretation and review of laboratory results Abnormal [facility] Potassium [Moles/Vol] 3.9 mmol/L 3.4 - 5.1 mmol/L [facility] Protein [Mass/Vol] 6.3 g/dL 5.9 - 7.9 g/dL [facility] Sodium [Moles/Vol] 137 mmol/L 133 - 145 mmol/L [facility] Urea nitrogen [Mass/Vol] 14 mg/dL 8 - 25 mg/dL [facility] Albumin [Mass/Vol] 3.8 g/dL Normal 3.5-5.0 [facility] Comment on above: Performed By: #### 2 4323-8 ####MELISA Galvan ([id number])[facility] ()[address] [place] [address] ALP (Bld) [Catalytic activity/Vol] 52 U/L Normal 35-125 [facility] Comment on above: Performed By: #### 2 4323-8 ####MELISA Galvan ([id number])[facility] ()[address] [place] [address] ALT [Catalytic activity/Vol] 34 U/L Normal 5-40 [facility] Comment on above: Performed By: #### 2 4323-8 ####MELISA Galvan ([id number])[facility] ()[address] [place] [address] Anion gap [Moles/Vol] 10 mmol/L Normal <=19 [facility] Comment on above: Performed By: #### 2 4323-8 ####MELISA Galvan (74945)[facility] ()[address] [place] [address] AST [Catalytic activity/Vol] 43 U/L High 5-40 [facility] Comment on above: Performed By: #### 2 432-8 ####MELISA Galvan (94022)[facility] ()[address] [place] [address] Bilirubin [Mass/Vol] 0.3 mg/dL Normal 0.1-1.2 [facility] Comment on above: Performed By: #### 2 432-8 ####MELISA Galvan ([id number])[facility] ()[address] [place] [address] Calcium [Mass/Vol] 8.8 mg/dL Normal 8.5-10.4 [facility] Comment on above: Performed By: #### 2 432-8 ####MELISA Galvan (10247)[facility] ()[address] [place] [address] Chloride [Moles/Vol] 104 mmol/L Normal 97-107 [facility] Comment on above: Performed By: #### 2 4323-8 ####MELISA Galvan ([id number])[facility] ()[address] [place] [address] CO2 [Moles/Vol] 23 mmol/L Low 24-31 [facility] Comment on above: Performed By: #### 2 432-8 ####MELISA Galvan (55955)[facility] ()[address] [place] [address] Creatinine [Mass/Vol] 0.60 mg/dL Normal 0.40-1.60 [facility] Comment on above: Performed By: #### 2 432-8 ####MELISA Galvan (74535)[facility] ()[address] [place] [address] GFR/1.73 sq M.predicted MDRD (S/P/Bld) [Vol rate/Area] mL/min/{1.73_m2} Normal >60 [facility] Comment on above: Result Comment: Calc ulations of estimated GFR are performed using the 2020 CKD-EPI Study Refit equation without the race variable for the IDMS-Traceable creatinine methods. https://jasn.asnjournals.org/content//ASN.10389174 88 Performed By: #### 2 4323-8 ####MELISA Galvan (86412)[facility] ()[address] [place] [address] Glucose [Mass/Vol] 136 mg/dL High 65-99 [facility] Comment on above: Performed By: #### 2 4323-8 ####MELISA Galvan (87679)[facility] ()[address] [place] [address] Potassium [Moles/Vol] 3.9 mmol/L Normal 3.4-5.1 [facility] Comment on above: Performed By: #### 2 4323-8 ####MELISA Galvan ([id number])[facility] ()[address] [place] [address] Protein [Mass/Vol] 6.3 g/dL Normal 5.9-7.9 [facility] Comment on above: Performed By: #### 2 4323-8 ####MELISA Galvan (81432)[facility] ()[address] [place] [address] Sodium [Moles/Vol] 137 mmol/L Normal 133-145 [facility] Comment on above: Performed By: #### 2 4323-8 ####MELISA Galvan ([id number])[facility] ()[address] [place] [address] Urea nitrogen [Mass/Vol] 14 mg/dL Normal 8-25 [facility] Comment on above: Performed By: #### 2 4323-8 ####MELISA Galvan ([id number])[facility] ()[address] [facility] [email or web address] [address] Extra Urine [place] Tubeon 06-15 Extra Tube Hold for add-ons. [facility] Comment on above: Auto resulted. [facility] Glucose Test strip manual (B ld) [Mass/Vol]on 06-30-2023 Glucose [Mass/Vol] 117 mg/dL High 74 - 99 mg/dL [facility] Interpretation and review of laboratory results Abnormal [facility] Glucose [Mass/Vol] 117 mg/dL High 74-99 [facility] Comment on above: Performed By: #### 2 341-6 ####MELISA Galvan (30920)[facility] ()[address] [place] [address] Glucose [Mass/Vol] 77 mg/dL 74 - 99 mg/dL [facility] Interpretation and review of laboratory results Normal [facility] Glucose [Mass/Vol] 77 mg/dL Normal 74-99 [facility] Comment on above: Performed By: #### 2 341-6 ####MELISA Galvan (41389)[facility] ()[address] [facility] [place] [email or web address] [address] HCG ( test) IA.rapi d Ql (U)Ordered By: Agustin Cedillo on 06-30-2023 HCG ( test) Ql (U) Negative NEGATIVE [facility] Interpretation and review of laboratory results Normal [facility] HCG ( test) IA.rapi d Ql (U)on 06-30-2023 HCG ( test) Ql (U) Negative Normal NEGATIVE [facility] Comment on above: Performed By: #### 8 0384-1 ####MELISA Galvan (59325)[facility] ()[address] [facility] [place] [place] [address] Magnesiumon 06-30-2023 Magnesium [Mass/Vol] 1.90 mg/dL 1.60 - 3.10 mg/dL [facility] Magnesium [Mass/Vol] 1.90 mg/dL Normal 1.60-3.10 [facility] Comment on above: Performed By: #### 1 9123-9 ####MELISA Galvan (63656)[facility] ()[address] [address] [place] [address] No Panel Informationon 06-29 Interpretation and review of laboratory results Normal [facility] Phosphateon 06-30-2023 Phosphate [Mass/Vol] 4.4 mg/dL Normal 2.5-4.5 [facility] Comment on above: Performed By: #### 2 777-1 ####MELISA Galvan (32027)[facility] ()[address] [facility] [address] Phosphoruson 06-30-2023 Phosphate [Mass/Vol] 4.4 mg/dL 2.5 - 4.5 mg/dL [facility] Urinalysis complete W Reflex Culture panel (U)on 06-30-2023 Appearance (U) Clear Clear [facility] Bilirubin (U) [Mass/Vol] Negative NEGATIVE [facility] Color (U) Light-Yellow Light-Yellow, Yellow, Dark-Yellow [facility] Glucose Auto test strip (U) [Mass/Vol] Normal Normal mg/dL [facility] Interpretation and review of laboratory results Normal [facility] Ketones (U) [Mass/Vol] Negative NEGATIVE mg/dL [facility] Leukocyte esterase Auto test strip Ql (U) Negative NEGATIVE [facility] Nitrite Auto test strip Ql (U) Negative NEGATIVE [facility] pH (U) 6.0 [pH] 5.0, 5.5, 6.0, 6.5, 7.0, 7.5, 8.0 [facility] Protein (U) [Mass/Vol] Negative NEGATIVE, 10 (TRACE), 20 (TRACE) mg/dL [facility] RBC (U) [#/Vol] Negative NEGATIVE [facility] Specific gravity (U) [Rel density] 1.023 1.005 - 1.035 [facility] Urobilinogen (U) [Mass/Vol] Normal Normal mg/dL [facility] Appearance (U) Clear Normal Clear [facility] Comment on above: Performed By: #### 5 8077-9 ####MELISA Galvan ([id number])[facility] ()[address] [place] [address] Bilirubin (U) [Mass/Vol] Negative Normal NEGATIVE [facility] Comment on above: Performed By: #### 5 8077-9 ####MELISA Galvan ([id number])[facility] ()[address] [place] [address] Color (U) Light-Yellow Normal Light-Yellow, Yellow, Dark-Yellow [facility] Comment on above: Performed By: #### 5 8077-9 ####MELISA Galvan ([id number])[facility] ()[address] [place] [address] Glucose Auto test strip (U) [Mass/Vol] Normal Normal Normal [facility] Comment on above: Performed By: #### 5 8077-9 ####MELISA Galvan ([id number])[facility] ()[address] [place] [address] Ketones (U) [Mass/Vol] Negative Normal NEGATIVE [facility] Comment on above: Performed By: #### 5 8077-9 ####MELISA Galvan ([id number])[facility] ()[address] [place] [address] Leukocyte esterase Auto test strip Ql (U) Negative Normal NEGATIVE [facility] Comment on above: Performed By: #### 5 8077-9 ####MELISA Galvan ([id number])[facility] ()[address] [place] [address] Nitrite Auto test strip Ql (U) Negative Normal NEGATIVE [facility] Comment on above: Performed By: #### 5 8077-9 ####MELISA Galvan ([id number])[facility] ()[address] [facility] [place] [place] [address] pH (U) 6.0 [pH] Normal 5.0, 5.5, 6.0, 6.5, 7.0, 7.5, 8.0 [facility] Comment on above: Performed By: #### 5 8077-9 ####MELISA Galvan ([id number])[facility] ()[address] [facility] [place] [place] [address] Protein (U) [Mass/Vol] Negative Normal NEGATIVE, 10 (TRACE), 20 (TRACE) [facility] Comment on above: Performed By: #### 5 8077-9 ####MELISA Galvan ([id number])[facility] ()[address] [place] [address] RBC (U) [#/Vol] Negative Normal NEGATIVE [facility] Comment on above: Performed By: #### 5 8077-9 ####MELISA Galvan ([id number])[facility] ()[address] [place] [address] Specific gravity (U) [Rel density] 1.023 Normal 1.005-1.035 [facility] Comment on above: Performed By: #### 5 8077-9 ####MELISA Galvan ([id number])[facility] ()[address] [place] [address] Urobilinogen (U) [Mass/Vol] Normal Normal Normal [facility] Comment on above: Performed By: #### 5 8077-9 ####MELISA Galvan ([id number])[facility] ()[address] [place] [address] VASC US MESENTERIC ARTERY DU PLEX COMPLETEon 06-30-2023 VASC US MESENTERIC ARTERY DUPLEX COMPLETE [facility] [address] [place] [address] Vascular Lab Report VASC US MESENTERIC ARTERY DUPLEX COMPLETE Patient Name: ABBEY Oneil Physician: [id number] Magaña MD Study Date: 06/30/2023 Ordering Provider: [id number] JAMIL GAVIN MRN/PID: [id number] Fellow: Technologist: Leia Degroot RVMary Jane Date of /Age: 2 1990 / 33 years Technologist 2: Gender: F Admission Status: Inpatient Location Performed: [facility] 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 Report Amended Report Amended By: [id number] Magaña MD Date and Time: 06/30/2023 at [...] PSV 89 cm/s KEELY PSV 105 cm/s [id number] Magaña MD Brandy Magaña MD Electronically Amended 06/30/2023, 12:15 PM Final (Amended) Normal [facility] Vascular US mesenteric arter y duplex completeon 06-30-2023 Radiology Study observation (narrative) [facility] Work Phone: Basic metabolic 2000 panelon 06-29-2023 Anion gap [Moles/Vol] 12 mmol/L NINF - 19 mmol/L [facility] Calcium [Mass/Vol] 8.6 mg/dL 8.5 - 10.4 mg/dL [facility] Chloride [Moles/Vol] 105 mmol/L 97 - 107 mmol/L [facility] CO2 [Moles/Vol] 21 mmol/L Low 24 - 31 mmol/L [facility] Creatinine [Mass/Vol] 0.60 mg/dL 0.40 - 1.60 mg/dL [facility] eGFR - PINF [facility] Comment on above: Calculations of jessica mated GFR are performed using the 2020 CKD-EPI Study Refit equation without the race variable for the IDMS-Traceable creatinine methods. https://jasn.asnjournals.org/content//ASN.74691267 88 Glucose [Mass/Vol] 106 mg/dL High 65 - 99 mg/dL [facility] Interpretation and review of laboratory results Abnormal [facility] Potassium [Moles/Vol] 3.9 mmol/L 3.4 - 5.1 mmol/L [facility] Sodium [Moles/Vol] 138 mmol/L 133 - 145 mmol/L [facility] Urea nitrogen [Mass/Vol] 16 mg/dL 8 - 25 mg/dL [facility] Anion gap [Moles/Vol] 12 mmol/L Normal <=19 [facility] Comment on above: Performed By: #### V ERAB #### MELISA Galvan () [facility] ([facility]) [address] [place] [address] [place] Calcium [Mass/Vol] 8.6 mg/dL Normal 8.5-10.4 [facility] Comment on above: Performed By: #### V ERAB #### MELISA Galvan () [facility] ([facility]) [address] [place], [place] [address] [place] Chloride [Moles/Vol] 105 mmol/L Normal 97-107 [facility] Comment on above: Performed By: #### V ERAB #### MELISA Galvan ([id number]) [facility] ([facility]) [address] [place] [address] [place] CO2 [Moles/Vol] 21 mmol/L Low 24-31 [facility] Comment on above: Performed By: #### V ERAB #### MEILSA Galvan ([id number]) [facility] ([facility]) [address] [place] [address] [place] Creatinine [Mass/Vol] 0.60 mg/dL Normal 0.40-1.60 [facility] Comment on above: Performed By: #### V ERAB #### MELISA Galvan ([id number]) [facility] ([facility]) [address] [place] [address] [place] GFR/1.73 sq M.predicted MDRD (S/P/Bld) [Vol rate/Area] mL/min/{1.73_m2} Normal >60 [facility] Comment on above: Result Comment: Calc ulations of estimated GFR are performed using the 2020 CKD-EPI Study Refit equation without the race variable for the IDMS-Traceable creatinine methods. https://jasn.asnjournals.org/content//ASN.52338049 88 Performed By: #### V ERAB #### MELISA Galvan ([id number]) [facility] ([facility]) [address] [place] [address] [place] Glucose [Mass/Vol] 106 mg/dL High 65-99 [facility] Comment on above: Performed By: #### V ERAB #### MELISA Galvan ([id number]) [facility]) [address] [place] [address] [place] Potassium [Moles/Vol] 3.9 mmol/L Normal 3.4-5.1 [facility] Comment on above: Performed By: #### V ERAB #### MELISA Galvan ([id number]) [facility] ([facility]) [address] [place] [address] [place] Sodium [Moles/Vol] 138 mmol/L Normal 133-145 [facility] Comment on above: Performed By: #### V ERAB #### MELISA POOLESarwat Galvan ([id number]) [facility] ([facility]) [address] [place], [place] [address] [place] Urea nitrogen [Mass/Vol] 16 mg/dL Normal 8-25 [facility] Comment on above: Performed By: #### V ERAB #### MELISA MC Mandy ([id number]) [facility] ([facility]) [address] [place], [place] [address] [place] CBC W Auto Differential pane l (Bld)on 06-29-2023 Basophils (Bld) [#/Vol] 0.03 10*3/uL [facility] Basophils/100 WBC (Bld) 0.6 % 0.0 - 2.0 % [facility] Eosinophils (Bld) [#/Vol] 0.01 10*3/uL [facility] Eosinophils/100 WBC (Bld) 0.2 % 0.0 - 6.0 % [facility] Erythrocyte distribution width (RBC) [Ratio] 13.8 % 11.5 - 14.5 % [facility] Hematocrit (Bld) [Volume fraction] 32.2 % Low 36.0 - 46.0 % [facility] Hemoglobin (Bld) [Mass/Vol] 10.3 g/dL Low 12.0 - 16.0 g/dL [facility] Immature granulocytes (Bld) [#/Vol] 0.01 10*3/uL [facility] Immature granulocytes/100 WBC (Bld) 0.2 % 0.0 - 0.9 % [facility] Comment on above: Immature Granulocyte Count (IG) includes promyelocytes, myelocytes and metamyelocytes but does not include bands. Percent differential counts (%) should be interpreted in the context of the absolute cell counts (cells/UL). Interpretation and review of laboratory results Abnormal [facility] Lymphocytes (Bld) [#/Vol] 1.15 10*3/uL Low [facility] Lymphocytes/100 WBC (Bld) 23.1 % 13.0 - 44.0 % [facility] MCH (RBC) [Entitic mass] 31.2 pg 26.0 - 34.0 pg [facility] MCHC (RBC) [Mass/Vol] 32.0 g/dL 32.0 - 36.0 g/dL [facility] MCV (RBC) [Entitic vol] 98 fL 80 - 100 fL [facility] Monocytes (Bld) [#/Vol] 0.20 10*3/uL [facility] Monocytes/100 WBC (Bld) 4.0 % 2.0 - 10.0 % [facility] Neutrophils (Bld) [#/Vol] 3.57 10*3/uL [facility] Comment on above: Percent differential counts (%) should be interpreted in the context of the absolute cell counts (cells/uL). Neutrophils/100 WBC (Bld) 71.9 % 40.0 - 80.0 % [facility] Nucleated RBC/100 WBC (Bld) [Ratio] 0.0 % [facility] Platelets (Bld) [#/Vol] 231 10*3/uL [facility] RBC (Bld) [#/Vol] 3.30 10*6/uL Low [facility] WBC (Bld) [#/Vol] 5.0 10*3/uL [facility] Basophils (Bld) [#/Vol] 0.03 x10*3/uL Normal 0.00-0.10 [facility] Comment on above: Performed By: #### V ERAB #### MELISA Galvan ([id number]) [facility] ([facility]) [id number] [place] [address] [place] Basophils/100 WBC (Bld) 0.6 % Normal 0.0-2.0 [facility] Comment on above: Performed By: #### V ERAB #### MELISA Galvan ([id number]) [facility] ([facility]) [address] [place] [address] [place] Eosinophils (Bld) [#/Vol] 0.01 x10*3/uL Normal 0.00-0.70 [facility] Comment on above: Performed By: #### V ERAB #### MELISA Galvan ([id number]) [facility] ([facility]) [address] [place] [address] [place] Eosinophils/100 WBC (Bld) 0.2 % Normal 0.0-6.0 [facility] Comment on above: Performed By: #### V ERAB #### MELISA Galvan ([id number]) [facility] ([facility]) [address] [place] [address] [place] Erythrocyte distribution width (RBC) [Ratio] 13.8 % Normal 11.5-14.5 [facility] Comment on above: Performed By: #### V ERAB #### MELISA Galvan ([id number]) [facility] ([facility]) [address] [place] [address] [place] Hematocrit (Bld) [Volume fraction] 32.2 % Low 36.0-46.0 [facility] Comment on above: Performed By: #### V ERAB #### MELISA Galvan ([id number]) [facility] ([facility]) [address] [place] [address] [place] Hemoglobin (Bld) [Mass/Vol] 10.3 g/dL Low 12.0-16.0 [facility] Comment on above: Performed By: #### V ERAB #### MELISA Galvan ([id number]) [facility] ([facility]) [address] [place] [address] [place] Immature granulocytes (Bld) [#/Vol] 0.01 x10*3/uL Normal 0.00-0.70 [facility] Comment on above: Performed By: #### V ERAB #### MELISA Galvan ([id number]) [facility] ([facility]) [address] [place] [address] [place] Immature granulocytes/100 WBC (Bld) 0.2 % Normal 0.0-0.9 [facility] Comment on above: Result Comment: Janny ture Granulocyte Count (IG) includes promyelocytes, myelocytes and metamyelocytes but does not include bands. Percent differential counts (%) should be interpreted in the context of the absolute cell counts (cells/UL). Performed By: #### V ERAB #### MELISA Galvan ([id number]) [facility] ([facility]) [address] [place] [address] [place] Lymphocytes (Bld) [#/Vol] 1.15 x10*3/uL Low 1.20-4.80 [facility] Comment on above: Performed By: #### V ERAB #### MELISA Galvan ([id number]) [facility] ([facility]) [address] [place] [address] [place] Lymphocytes/100 WBC (Bld) 23.1 % Normal 13.0-44.0 [facility] Comment on above: Performed By: #### V ERAB #### MELISA Galvan ([id number]) [facility] ([facility]) [address] [place] [address] US MCH (RBC) [Entitic mass] 31.2 pg Normal 26.0-34.0 [facility] Comment on above: Performed By: #### V ERAB #### MELISA Galvan ([id number]) [facility] ([facility]) [address] [place] [address] US MCHC (RBC) [Mass/Vol] 32.0 g/dL Normal 32.0-36.0 [facility] Comment on above: Performed By: #### V ERAB #### MELISA Galvan ([id number]) [facility] ([facility]) [address] [place] [address] US MCV (RBC) [Entitic vol] 98 fL Normal 80-100 [facility] Comment on above: Performed By: #### V ERAB #### MELISA Galvan ([id number]) [facility] ([facility]) [address] [place] [address] [place] Monocytes (Bld) [#/Vol] 0.20 x10*3/uL Normal 0.10-1.00 [facility] Comment on above: Performed By: #### V ERAB #### MELISA Galvan ([id number]) [facility] ([facility]) [address] [place] [address] [place] Monocytes/100 WBC (Bld) 4.0 % Normal 2.0-10.0 [facility] Comment on above: Performed By: #### V ERAB #### MELISA Galvan ([id number]) [facility] ([employer]) [address] [place] [address] [place] Neutrophils (Bld) [#/Vol] 3.57 x10*3/uL Normal 1.20-7.70 [facility] Comment on above: Result Comment: Perc ent differential counts (%) should be interpreted in the context of the absolute cell counts (cells/uL). Performed By: #### V ERAB #### MELISA Galvan ([id number]) [facility] ([facility]) [address] [place] [address] [place] Neutrophils/100 WBC (Bld) 71.9 % Normal 40.0-80.0 [facility] Comment on above: Performed By: #### V ERAB #### MELISA Galvan ([id number]) [facility] ([facility]) [address] [place] [address] [place] Nucleated RBC/100 WBC (Bld) [Ratio] 0.0 /100 WBCs Normal 0.0-0.0 [facility] Comment on above: Performed By: #### V ERAB #### MELISA Galvan ([id number]) [facility] ([facility]) [address] [place] [address] [place] Platelets (Bld) [#/Vol] 231 x10*3/uL Normal 150-450 [facility] Comment on above: Performed By: #### V ERAB #### MELISA Galvan ([id number]) [facility] ([facility]) [address] [place] [address] [place] RBC (Bld) [#/Vol] 3.30 x10*6/uL Low 4.00-5.20 [facility] Comment on above: Performed By: #### V ERAB #### MELISA Galvan ([id number]) [facility] ([facility]) [address] [place] [address] US WBC (Bld) [#/Vol] 5.0 x10*3/uL Normal 4.4-11.3 [facility] Comment on above: Performed By: #### Beth ERAB #### MELISA Galvan () [facility] ([facility]) [id number] [place] [address] [place] CBC panel Auto (Bld)on 06-28 Erythrocyte distribution width (RBC) [Ratio] 13.7 % 11.5 - 14.5 % [facility] Hematocrit (Bld) [Volume fraction] 32.7 % Low 36.0 - 46.0 % [facility] Hemoglobin (Bld) [Mass/Vol] 11.0 g/dL Low 12.0 - 16.0 g/dL [facility] Interpretation and review of laboratory results Abnormal [facility] MCH (RBC) [Entitic mass] 30.7 pg 26.0 - 34.0 pg [facility] MCHC (RBC) [Mass/Vol] 33.6 g/dL 32.0 - 36.0 g/dL [facility] MCV (RBC) [Entitic vol] 91 fL 80 - 100 fL [facility] Nucleated RBC/100 WBC (Bld) [Ratio] 0.0 % [facility] Platelets (Bld) [#/Vol] 246 10*3/uL [facility] RBC (Bld) [#/Vol] 3.58 10*6/uL Low [facility] WBC (Bld) [#/Vol] 5.2 10*3/uL [facility] Erythrocyte distribution width (RBC) [Ratio] 13.7 % Normal 11.5-14.5 [facility] Comment on above: Performed By: #### Beth ERAB #### MELISA Galvan () [facility] ([facility]) [address] [place] [address] [place] Hematocrit (Bld) [Volume fraction] 32.7 % Low 36.0-46.0 [facility] Comment on above: Performed By: #### Beth ERAB #### MELISA Galvan () [facility] ([facility]) [id number] [place] [address] [place] Hemoglobin (Bld) [Mass/Vol] 11.0 g/dL Low 12.0-16.0 [facility] Comment on above: Performed By: #### V ERAB #### MELISA Galvan ([id number]) [facility] ([facility]) [address] [place] [address] US MCH (RBC) [Entitic mass] 30.7 pg Normal 26.0-34.0 [facility] Comment on above: Performed By: #### V ERAB #### MELISA Galvan () [facility] ([facility]) [address] [place] [address] US MCHC (RBC) [Mass/Vol] 33.6 g/dL Normal 32.0-36.0 [facility] Comment on above: Performed By: #### V ERAB #### MELISA Galvan () [facility] ([facility]) [address] [place] [address] US MCV (RBC) [Entitic vol] 91 fL Normal 80-100 [facility] Comment on above: Performed By: #### Beth ERAB #### MELISA Galvan () [facility] ([facility]) [address] [place] [address] [place] Nucleated RBC/100 WBC (Bld) [Ratio] 0.0 /100 WBCs Normal 0.0-0.0 [facility] Comment on above: Performed By: #### V ERAB #### MELISA Galvan () [facility] ([facility]) [address] [place] [address] [place] Platelets (Bld) [#/Vol] 246 x10*3/uL Normal 150-450 [facility] Comment on above: Performed By: #### V ERAB #### MELISA Galvan () [facility] ([facility]) [address] [place] [address] US RBC (Bld) [#/Vol] 3.58 x10*6/uL Low 4.00-5.20 [facility] Comment on above: Performed By: #### V ERAB #### MELISA Galvan ([id number]) [facility] ([facility]) [address] [place] [address] US WBC (Bld) [#/Vol] 5.2 x10*3/uL Normal 4.4-11.3 [facility] Comment on above: Performed By: #### V ERAB #### MELISA Galvan ([id number]) [facility] ([facility]) [address] [place] [address] ABDOMEN PELVIS WO IV CONT [facility] 06-29-2023 CT ABDOMEN PELVIS WO IV CONTRAST Interpreted By: Fly West, STUDY: CT ABDOMEN PELVIS WO IV CONTRAST; 06/29/2023 11:09 pm INDICATION: Signs/Symptoms:Abdo kerry pain. COMPARISON: 03/16/2023 ACCESSION NUMBER(S): [id number] ORDERING CLINICIAN: DAVID VALADEZ TECHNIQUE: Axial CT [...] Fly West 06/29/2023 11:53 PM Dictation workstation: [id number] [facility] CT Abdomen WO contraston 1. No acute abdominal or pelvic process. 2. Numerous hepatic hypodense lesions, incompletely characterize, though likely reflecting cysts. Appearance is similar to 03/16/2023. 3. Postsurgical changes as above. Signed by: Fly West 06/29/2023 11:53 PM Dictation workstation: [id number] Interpreted By: Fly West, STUDY: CT ABDOMEN PELVIS WO IV CONTRAST; 06/29/2023 11:09 pm INDICATION: Signs/Symptoms:Abdo kerry pain. COMPARISON: 03/16/2023 ACCESSION NUMBER(S): [id number] ORDERING CLINICIAN: DAVID VALADEZ TECHNIQUE: Axial CT [...] Signs/Symptoms:Abdo kerry pain. COMPARISON: 03/16/2023 ACCESSION NUMBER(S): [id number] ORDERING CLINICIAN: DAVID VALADEZ TECHNIQUE: Axial CT [...] Fly West 06/29/2023 11:53 PM Dictation workstation: [id number] [facility] Work Phone: Radiology Study observation (narrative) [facility] Work Phone: CT Abdomen WO contrastOrdere d By: Fly West on 06-29-2023 [facility] Work Phone: Comprehensive metabolic 2000 panelon 06-29-2023 Albumin [Mass/Vol] 3.8 g/dL Normal 3.5-5.0 [facility] Comment on above: Performed By: #### V ERAB #### MELISA Galvan () [facility]) [address] [place] [address] US ALP (Bld) [Catalytic activity/Vol] 51 U/L Normal 35-125 [facility] Comment on above: Performed By: #### V ERAB #### MELISA Galvan () [facility] [address] [place] [address] US ALT [Catalytic activity/Vol] 35 U/L Normal 5-40 [facility] Comment on above: Performed By: #### V ERAB #### MELISA Galvan () [facility] ([facility]) [address] [place] [address] US Anion gap [Moles/Vol] 13 mmol/L Normal <=19 [facility] Comment on above: Performed By: #### V ERAB #### MELISA Galvan () [facility]) [address] [place] [address] US AST [Catalytic activity/Vol] 52 U/L High 5-40 [facility] Comment on above: Performed By: #### V ERAB #### MELISA Galvan () [facility]) [address] [place] [address] [place] Bilirubin [Mass/Vol] mg/dL Normal 0.1-1.2 [facility] Comment on above: Performed By: #### V ERAB #### MELISA Galvan () [facility] ([facility]) [address] [place] [address] US Calcium [Mass/Vol] 9.1 mg/dL Normal 8.5-10.4 [facility] Comment on above: Performed By: #### V ERAB #### MELISA Galvan () [facility] ([facility]) [address] [place] [address] [place] Chloride [Moles/Vol] 90 mmol/L Low 97-107 [facility] Comment on above: Performed By: #### V ERAB #### MELISA Galvan ([id number]) [facility] ([facility]) [address] [place] [address] [place] CO2 [Moles/Vol] 19 mmol/L Low 24-31 [facility] Comment on above: Performed By: #### V ERAB #### MELISA Galvan () [facility] ([facility] [facility] [address] [place] [address] [place] Creatinine [Mass/Vol] 0.70 mg/dL Normal 0.40-1.60 [facility] Comment on above: Performed By: #### V ERAB #### MELISA Galvan ([id number]) [facility] ([facility]) [address] [place] [address] [place] GFR/1.73 sq M.predicted MDRD (S/P/Bld) [Vol rate/Area] mL/min/{1.73_m2} Normal >60 [facility] Comment on above: Result Comment: Calc ulations of estimated GFR are performed using the 2020 CKD-EPI Study Refit equation without the race variable for the IDMS-Traceable creatinine methods. https://jasn.asnjournals.org/content//ASN.03515971 88 Performed By: #### V ERAB #### MELISA Galvan ([id number]) [facility] ([facility]) [address] [place] [address] [place] Glucose [Mass/Vol] 920 mg/dL Critically high 65-99 U [facility] Comment on above: Result Comment: Resu lt rechecked Possible IV contamination. Results do not correlate with previous and post results. Patient was redraw . Performed By: #### V ERAB #### MELISA Galvan ([id number]) [facility] ([facility]) [address] [place] [address] [place] Potassium [Moles/Vol] 6.8 mmol/L Critically high 3.4-5.1 [facility] Comment on above: Result Comment: Resu lt rechecked Possible IV contamination. Results do not correlate with previus and post results. Patient was redrawn. Performed By: #### V ERAB #### MELISA Galvan ([id number]) [facility] ([facility]) [address] [place] [address] [place] Protein [Mass/Vol] 6.3 g/dL Normal 5.9-7.9 [facility] Comment on above: Performed By: #### V ERAB #### MELISA Galvan ([id number]) [facility] ([facility]) [address] [place] [address] [place] Sodium [Moles/Vol] 122 mmol/L Low 133-145 [facility] Comment on above: Result Comment: Resu lt rechecked Performed By: #### V ERAB #### MELISA Galvan ([id number]) [facility] ([facility]) [address] [place] [address] [place] Urea nitrogen [Mass/Vol] 15 mg/dL Normal 8-25 [facility] Comment on above: Performed By: #### V ERAB #### MELISA Galvan ([id number]) [facility] ([facility]) [id number] [place] [address] [place] Glucose Test strip manual (B ld) [Mass/Vol]on 06-29-2023 Glucose [Mass/Vol] 117 mg/dL High 74 - 99 mg/dL [facility] Interpretation and review of laboratory results Abnormal [facility] Glucose [Mass/Vol] 117 mg/dL High 74-99 [facility] Comment on above: Performed By: #### V ERAB #### MELISA Galvan ([id number]) [facility] ([facility]) [address] [place] [address] [place] [facility] Record[facility] 2023 Home Health Records [id number] 8#1.00TIFF Normal [facility] Auth for Release of Medical Recordson 06-23-2023 Auth for Release of Medical Records [id number] B#1.00TIFF Normal [facility] ED Note-Physicianon 06-23-19 ED Note-Physician [id number] D5#1.00TIFF Normal [facility] ED Note-Physicianon 06-22-19 24 ED Note-Physician [id number] 906#1.00TIFF Normal [facility] ED Note-Physician [id number] 15#1.00TIFF Normal [facility] Lab Reportson 06-22-2023 Lab Reports [id number] 447#1.00TIFF [facility] Provider Letteron 06-22-2023 Provider Letter [facility] RAD - CT Reporton 06-22-2023 RAD - CT Report [id number] 594#1.00TIFF [facility] Home Health Recordson 2023 Home Health Records [id number] 00#1.00TIFF [facility] ALLIED HEALTHon 06-18-2023 ALLIED HEALTH Normal [facility] CBC W Auto Differential pane l (Bld)on 06-18-2023 Basophils (Bld) [#/Vol] 0.04 10*3/uL Normal <0.11 [facility] Comment on above: Order Comment: Speci men Type: BLOOD SPECIMENOrdering Facility: [facility] Address: [address] [place] [address] Performed By: #### 5 7021-8 ####[facility] LABORATORYCLIA [id number] [place] [address] [place] Basophils/100 WBC (Bld) 0.8 % Normal [facility] Comment on above: Order Comment: Speci men Type: BLOOD SPECIMENOrdering Facility: [facility] Address: [address] [place] [address] Performed By: #### 5 7021-8 ####[facility] LABORATORYCLIA [id number] [place] [id number] [place] Differential cell count method Nom (Bld) Auto Normal [facility] Comment on above: Order Comment: Speci men Type: BLOOD SPECIMENOrdering Facility: [facility] Address: [address] [place] [address] Performed By: #### 5 7021-8 ####[facility] LABORATORYCLIA [id number] [place] [address] [place] Eosinophils (Bld) [#/Vol] 0.13 10*3/uL Normal <0.46 [facility] Comment on above: Order Comment: Speci men Type: BLOOD SPECIMENOrdering Facility: [facility] Address: [address] [place] [address] Performed By: #### 5 7021-8 ####[facility] LABORATORYCLIA [id number] [place] [address] [place] Eosinophils/100 WBC (Bld) 2.8 % Normal [facility] Comment on above: Order Comment: Speci men Type: BLOOD SPECIMENOrdering Facility: [facility] Address: [address] [place] [address] Performed By: #### 5 7021-8 ####[facility] LABORATORYCLIA [id number] [place] [id number] [place] Erythrocyte distribution width (RBC) [Ratio] 13.3 % Normal 11.5-15.0 [facility] Comment on above: Order Comment: Speci men Type: BLOOD SPECIMENOrdering Facility: [facility] Address: [address] [place] [address] Performed By: #### 5 7021-8 ####[facility] LABORATORYCLIA [id number] [place] [id number] [place] Hematocrit (Bld) [Volume fraction] 34.6 % Low 36.0-46.0 [facility] Comment on above: Order Comment: Speci men Type: BLOOD SPECIMENOrdering Facility: [facility] Address: [address] [place] [address] Performed By: #### 5 7021-8 ####[facility] LABORATORYCLIA [id number] [place] [id number] [place] Hemoglobin (Bld) [Mass/Vol] 12.0 g/dL Normal 11.5-15.5 [facility] Comment on above: Order Comment: Speci men Type: BLOOD SPECIMENOrdering Facility: [facility] Address: [address] [place] [address] Performed By: #### 5 7021-8 ####[facility] LABORATORYCLIA [id number] [place] [id number] [place] Immature granulocytes (Bld) [#/Vol] 10*3/uL Normal <0.10 [facility] Comment on above: Order Comment: Speci men Type: BLOOD SPECIMENOrdering Facility: [facility] Address: [address] [place] [address] Performed By: #### 5 7021-8 ####[facility] LABORATORYCLIA [id number] [place] [address] [place] Immature granulocytes/100 WBC (Bld) 0.2 % Normal [facility] Comment on above: Order Comment: Speci men Type: BLOOD SPECIMENOrdering Facility: [facility] Address: [address] [place] [address] Performed By: #### 5 7021-8 ####[facility] LABORATORYCLIA [id number] [place] [id number] [place] Lymphocytes (Bld) [#/Vol] 1.90 10*3/uL Normal 1.00-4.00 [facility] Comment on above: Order Comment: Speci men Type: BLOOD SPECIMENOrdering Facility: [facility] Address: [address] [place] [address] Performed By: #### 5 7021-8 ####[facility] LABORATORYCLIA [id number] [place] [address] [place] Lymphocytes/100 WBC (Bld) 40.3 % Normal [facility] Comment on above: Order Comment: Speci men Type: BLOOD SPECIMENOrdering Facility: [facility] Address: [address] [place] [address] Performed By: #### 5 7021-8 ####[facility] LABORATORYCLIA [id number] [address] MCH (RBC) [Entitic mass] 30.9 pg Normal 26.0-34.0 [facility] Comment on above: Order Comment: Speci men Type: BLOOD SPECIMENOrdering Facility: [facility] Address: [address] [place] [address] Performed By: #### 5 7021-8 ####[facility] LABORATORYCLIA [id number] [address] MCHC (RBC) [Mass/Vol] 34.7 g/dL Normal 30.5-36.0 [facility] Comment on above: Order Comment: Speci men Type: BLOOD SPECIMENOrdering Facility: [facility] Address: [address] [place] [address] Performed By: #### 5 7021-8 ####[facility] LABORATORYCLIA [id number] [address] [place] [facility] MCV (RBC) [Entitic vol] 89.2 fL Normal 80.0-100.0 [facility] Comment on above: Order Comment: Speci men Type: BLOOD SPECIMENOrdering Facility: [facility] Address: [address] [place] [address] Performed By: #### 5 7021-8 ####[facility] LABORATORYCLIA [id number] [address] Monocytes (Bld) [#/Vol] 0.24 10*3/uL Normal <0.87 [facility] Comment on above: Order Comment: Speci men Type: BLOOD SPECIMENOrdering Facility: [facility] Address: [address] [place] [address] Performed By: #### 5 7021-8 ####[facility] LABORATORYCLIA [id number] [address] Monocytes/100 WBC (Bld) 5.1 % Normal [facility] Comment on above: Order Comment: Speci men Type: BLOOD SPECIMENOrdering Facility: [facility] Address: [address] [place] [address] Performed By: #### 5 7021-8 ####[facility] LABORATORYCLIA [id number] [place] [address] [place] Neutrophils (Bld) [#/Vol] 2.39 10*3/uL Normal 1.45-7.50 [facility] Comment on above: Order Comment: Speci men Type: BLOOD SPECIMENOrdering Facility: [facility] Address: [address] [place] [address] Performed By: #### 5 7021-8 ####[facility] LABORATORYCLIA [id number] [address] [place] Neutrophils/100 WBC (Bld) 50.8 % Normal [facility] Comment on above: Order Comment: Speci men Type: BLOOD SPECIMENOrdering Facility: [facility] Address: [address] [place] [address] Performed By: #### 5 7021-8 ####[facility] LABORATORYCLIA [id number] [place] [address] [place] Nucleated RBC (Bld) [#/Vol] 10*3/uL Normal <0.01 [facility] Comment on above: Order Comment: Speci men Type: BLOOD SPECIMENOrdering Facility: [facility] Address: [address] [place] [address] Performed By: #### 5 7021-8 ####[facility] LABORATORYCLIA [id number] [place] [id number] [place] Nucleated RBC/100 WBC (Bld) [Ratio] 0.0 /100 WBC Normal [facility] Comment on above: Order Comment: Speci men Type: BLOOD SPECIMENOrdering Facility: [facility] Address: [address] [place] [address] Performed By: #### 5 7021-8 ####[facility] LABORATORYCLIA [id number] [place] [address] [place] Platelet mean volume (Bld) [Entitic vol] 11.4 fL Normal 9.0-12.7 [facility] Comment on above: Order Comment: Speci men Type: BLOOD SPECIMENOrdering Facility: [facility] Address: [address] [place] [address] Performed By: #### 5 7021-8 ####[facility]ORATORYCLIA [id number] [place] [id number] [place] Platelets (Bld) [#/Vol] 233 10*3/uL Normal 150-400 [facility] Comment on above: Order Comment: Speci men Type: BLOOD SPECIMENOrdering Facility: [facility] Address: [address] [place] [address] Performed By: #### 5 7021-8 ####[facility]ORATORYCLIA [id number] [place] [address] [place] RBC (Bld) [#/Vol] 3.88 10*6/uL Low 3.90-5.20 [facility] Comment on above: Order Comment: Speci men Type: BLOOD SPECIMENOrdering Facility: [facility] Address: [address] [place] [address] Performed By: #### 5 7021-8 ####[facility]ORATORYCLIA [id number] [place] [id number] [place] WBC (Bld) [#/Vol] 4.71 10*3/uL Normal 3.70-11.00 [facility] Comment on above: Order Comment: Speci men Type: BLOOD SPECIMENOrdering Facility: [facility] Address: [address] [place] [address] Performed By: #### 5 7021-8 ####[facility] LABORATORYCLIA [id number] [place] [id number] [place] CNOVon 06-18-2023 CNOV Normal [facility] CONSULTon 06-18-2023 CONSULT Normal [facility] CT ABD/PEL W IVCONon 024 CT ABD/PEL W IVCON Normal [facility] Comprehensive metabolic 2000 panelon 06-18-2023 Albumin [Mass/Vol] 4.5 g/dL Normal 3.9-4.9 [facility] Comment on above: Order Comment: Speci men Type: BLOOD SPECIMENOrdering Facility: [facility] Address: [address] [place] [address] Performed By: #### 1 9123-9, 3040-3, 40729-3 ####[facility]ORATORYCLIA [id number] [place] [id number] [place] ALP [Catalytic activity/Vol] 58 U/L Normal 34-123 [facility] Comment on above: Order Comment: Speci men Type: BLOOD SPECIMENOrdering Facility: [facility] Address: [address] [place] [address] Performed By: #### 1 9123-9, 3040-3, 32813-7 ####[facility]ORATORYCLIA [id number] [place] [id number] [place] ALT [Catalytic activity/Vol] 13 U/L Normal 7-38 [facility] Comment on above: Order Comment: Speci men Type: BLOOD SPECIMENOrdering Facility: [facility] Address: [address] [place] [address] Performed By: #### 1 9123-9, 3040-3, 03530-2 ####[facility]ORATORYCLIA [id number] [place] [address] [place] Anion gap [Moles/Vol] 13 mmol/L Normal 9-18 [facility] Comment on above: Order Comment: Speci men Type: BLOOD SPECIMENOrdering Facility: [facility] Address: [address] [place] [address] Performed By: #### 1 9123-9, 3040-3, 39156-5 ####[facility]ORATORYCLIA [id number] [place] [id number] [place] AST [Catalytic activity/Vol] 31 U/L Normal 13-35 [facility] Comment on above: Order Comment: Speci men Type: BLOOD SPECIMENOrdering Facility: [facility] Address: [address] [place] [address] Performed By: #### 1 9123-9, 3040-3, 15725-0 ####[facility]ORATORYCLIA [id number] [place] [address] [place] Bilirubin [Mass/Vol] 0.4 mg/dL Normal 0.2-1.3 [facility] Comment on above: Order Comment: Speci men Type: BLOOD SPECIMENOrdering Facility: [facility] Address: [address] [place] [address] Performed By: #### 1 9123-9, 0-3, 89493-2 ####[facility]ORATORYCLIA [id number] [place] [id number] [place] Calcium [Mass/Vol] 9.0 mg/dL Normal 8.5-10.2 [facility] Comment on above: Order Comment: Speci men Type: BLOOD SPECIMENOrdering Facility: [facility] Address: [address] [place] [address] Performed By: #### 1 9123-9, 3, ####[facility] LABORATORYCLIA [id number] [place] [address] [place] Chloride [Moles/Vol] 103 mmol/L Normal 97-105 [facility] Comment on above: Order Comment: Speci men Type: BLOOD SPECIMENOrdering Facility: [facility] Address: [address] [place] [address] Performed By: #### 1 9123-9, 3, ####[facility]ORATORYCLIA [id number] [place] [id number] [place] CO2 [Moles/Vol] 22 mmol/L Normal 22-30 [facility] Comment on above: Order Comment: Speci men Type: BLOOD SPECIMENOrdering Facility: [facility] Address: [address] [place] [address] Performed By: #### 1 9123-9, 0-3, 17578-6 ####[facility]ORATORYCLIA [id number] [place] [id number] [place] Creatinine [Mass/Vol] 0.83 mg/dL Normal 0.58-0.96 [facility] Comment on above: Order Comment: Geraldo marrero Type: BLOOD SPECIMENOrdering Facility: [facility] Address: [address] [place] [address] Performed By: #### 1 9123-9, 3040-3, 14382-6 ####[facility]ORATORYCLIA [id number] [place] [id number] [place] Creatinine and Glomerular filtration rate.predicted panel (S/P/Bld) 95 mL/min/1.73m??? Normal >=60 [facility] Comment on above: Order Comment: Geraldo marrero Type: BLOOD SPECIMENOrdering Facility: [facility] Address: [address] [place] [address] Result Comment: Jessica mated Glomerular Filtration Rate [...] GFR. Performed By: #### 1 9123-9, 3040-3, 70496-7 ####[facility] LABORATORYCLIA [id number] [place] [id number] [place] Glucose [Mass/Vol] 77 mg/dL Normal 74-99 [facility] Comment on above: Order Comment: Geraldo marrero Type: BLOOD SPECIMENOrdering Facility: [facility] Address: [address] [place] [address] Result Comment: The [place] [employer] (ADA) provides guidance for cutoff [...] Standards of Medical Care in Diabetes 2016, [place] [employer]. Diabetes Care. 2016.39(Suppl 1). Performed By: #### 1 9123-9, 3040-3, 49599-9 ####[facility] LABORATORYCLIA [id number] [place] [address] [place] Potassium [Moles/Vol] 3.4 mmol/L Low 3.7-5.1 [facility] Comment on above: Order Comment: Speci men Type: BLOOD SPECIMENOrdering Facility: [facility] Address: [address] [place] [address] Performed By: #### 1 9123-9, 3040-3, 12732-7 ####[facility] LABORATORYCLIA [id number] [place] [address] [place] Protein [Mass/Vol] 7.6 g/dL Normal 6.3-8.0 [facility] Comment on above: Order Comment: Speci men Type: BLOOD SPECIMENOrdering Facility: [facility] Address: [address] [place] [address] Performed By: #### 1 9123-9, 0-3, 42962-0 ####[facility] LABORATORYCLIA [id number] [place] [id number] [place] Sodium [Moles/Vol] 138 mmol/L Normal 136-144 [facility] Comment on above: Order Comment: Speci men Type: BLOOD SPECIMENOrdering Facility: [facility] Address: [address] [place] [address] Performed By: #### 1 9123-9, 3040-3, 18070-7 ####[facility] LABORATORYCLIA [id number] [place] [address] [place] Urea nitrogen [Mass/Vol] 12 mg/dL Normal 7-21 [facility] Comment on above: Order Comment: Speci men Type: BLOOD SPECIMENOrdering Facility: [facility] Address: [address] [place] [address] Performed By: #### 1 9123-9, 3040-3, 73997-4 ####[facility]ORATORYCLIA [id number] [place] [address] [place] ECG COMPLETEon 06-18-2023 ECG COMPLETE Normal [facility] ED NOTEon 06-18-2023 ED NOTE Normal [facility] ED NOTE HNO ID: [id number] Author: HIEU HERNANDEZ RN Service: ? Author Type: Registered Nurse Type: ED Notes Filed: 06/18/2023 19:05 Note Text: Patient verbalized understanding of discharge instructions and follow up care. Normal [facility] ED NOTE HNO ID: [id number] Author: HIEU HERNANDEZ RN Service: ? Author Type: Registered Nurse Type: ED Notes Filed: 06/18/2023 18:38 Note Text: Long catheter with leg bag inserted and orange juice given via peg tube given per Earnest INMAN verbal order. Normal [facility] ED PROV NOTEon 06-18-2023 ED PROV NOTE Normal [facility] HCG QUALITATIVEon 06-18-2023 HCG, QUALITATIVE Negative Normal Negative [facility] Comment on above: Order Comment: Speci men Type: BLOOD SPECIMENOrdering Facility: [facility] Address: [address] [place] [address] Performed By: #### H CG ####[facility] LABORATORYCLIA [id number] [place] [id number] [place] Lipase SerPl-cCncon 06-18-19 24 Lipase [Catalytic activity/Vol] 31 U/L Normal 16-61 [facility] Comment on above: Order Comment: Speci men Type: BLOOD SPECIMENOrdering Facility: [facility] Address: [address] [place] [address] Performed By: #### 1 9123-9, 3040-3, 06471-9 ####[facility]ORATORYCLIA [id number] [place] [id number] [place] Magnesium SerPl-mCncon 06-17 Magnesium [Mass/Vol] 2.0 mg/dL Normal 1.7-2.3 [facility] Comment on above: Order Comment: Speci men Type: BLOOD SPECIMENOrdering Facility: [facility] Address: [address] [place] [address] Performed By: #### 1 9123-9, 3040-3, 06715-6 ####[facility]ORATORYCLIA [id number] [place] [id number] [facility] Urinalysis complete panel (U )on 06-18-2023 Bacteria LM.HPF (Urine sed) [#/Area] Rare Abnormal None Seen [facility] Comment on above: Order Comment: Speci men Type: URINE SPECIMENOrdering Facility: [facility] Address: [address] [place] [address] Performed By: #### 2 4356-8 ####[facility]ORATORYCLIA [id number] [place] [address] [place] Bilirubin Ql (U) Negative Normal Negative [facility] Comment on above: Order Comment: Speci men Type: URINE SPECIMENOrdering Facility: [facility] Address: [address] [place] [address] Performed By: #### 2 4356-8 ####[facility] LABORATORYCLIA [id number] [address] [place] Clarity (Unsp spec) Clear Normal Clear [facility] Comment on above: Order Comment: Speci men Type: URINE SPECIMENOrdering Facility: [facility] Address: [address] [place] [address] Performed By: #### 2 4356-8 ####[facility]ORATORYCLIA [id number] [address] [place] Color (U) Light Yellow Normal Yellow [facility] Comment on above: Order Comment: Speci men Type: URINE SPECIMENOrdering Facility: [facility] Address: [address] [place] [address] Performed By: #### 2 4356-8 ####[facility] LABORATORYCLIA [id number] [address] [place] Epithelial cells LM.HPF (Urine sed) [#/Area] Few Normal [facility] Comment on above: Order Comment: Speci men Type: URINE SPECIMENOrdering Facility: [facility] Address: [address] [place] [address] Performed By: #### 2 4356-8 ####[facility] LABORATORYCLIA [id number] [place] [address] [place] Glucose Test strip (U) [Mass/Vol] Negative Normal Trace, Negative [facility] Comment on above: Order Comment: Speci men Type: URINE SPECIMENOrdering Facility: [facility] Address: [address] [place] [address] Performed By: #### 2 4356-8 ####[facility] LABORATORYCLIA [id number] [place] [address] [place] Hemoglobin Ql (U) Negative Normal Negative, Trace [facility] Comment on above: Order Comment: Speci men Type: URINE SPECIMENOrdering Facility: [facility] Address: [address] [place] [address] Performed By: #### 2 4356-8 ####[facility] LABORATORYCLIA [id number] [place] [address] [place] Ketones Ql (U) Negative Normal Negative, Trace [facility] Comment on above: Order Comment: Speci men Type: URINE SPECIMENOrdering Facility: [facility] Address: [address] [place] [address] Performed By: #### 2 4356-8 ####[facility] LABORATORYCLIA [id number] [address] [place] Leukocyte esterase Test strip Ql (U) Negative Normal Negative, 25 Patito/uL [facility] Comment on above: Order Comment: Speci men Type: URINE SPECIMENOrdering Facility: [facility] Address: [address] [place] [address] Performed By: #### 2 4356-8 ####[facility] LABORATORYCLIA [id number] [address] [place] Nitrite Ql (U) Negative Normal Negative [facility] Comment on above: Order Comment: Speci men Type: URINE SPECIMENOrdering Facility: [facility] Address: [address] [place] [address] Performed By: #### 2 4356-8 ####[facility] LABORATORYCLIA [id number] [place] [address] [place] pH (U) 7.5 [pH] Normal 5.0-8.0 [facility] Comment on above: Order Comment: Speci men Type: URINE SPECIMENOrdering Facility: [facility] Address: [address] [place] [address] Performed By: #### 2 4356-8 ####[place] LABORATORYCLIA [id number] [place] [address] [place] Protein (U) [Mass/Vol] Negative Normal Trace, Negative [facility] Comment on above: Order Comment: Speci men Type: URINE SPECIMENOrdering Facility: [facility] Address: [address] [place] [address] Performed By: #### 2 4356-8 ####[facility] HOSPITALIA [id number] [place] [address] [place] RBC LM.HPF (Urine sed) [#/Area] 0-3 /HPF Normal 0-3 /HPF [facility] Comment on above: Order Comment: Speci men Type: URINE SPECIMENOrdering Facility: [facility] Address: [address] [place] [address] Performed By: #### 2 4356-8 ####[place] LABORATORYIA [id number] [place] [address] [place] Specific gravity (U) [Rel density] 1.009 Normal 1.005-1.030 [facility] Comment on above: Order Comment: Speci men Type: URINE SPECIMENOrdering Facility: [facility] Address: [address] [place] [address] Performed By: #### 2 4356-8 ####[place] LABORATORYCLIA [id number] [place] [address] [place] Urobilinogen Ql (U) Normal Normal Normal [facility] Comment on above: Order Comment: Speci men Type: URINE SPECIMENOrdering Facility: [facility] Address: [address] [place] [address] Performed By: #### 2 4356-8 ####[place] LABORATORYCLIA [id number] [place] [address] [place] WBC LM.HPF (Urine sed) [#/Area] 0-5 /HPF Normal 0-5 /HPF [facility] Comment on above: Order Comment: Speci men Type: URINE SPECIMENOrdering Facility: [facility] Address: [address] [place] [address] Performed By: #### 2 4356-8 ####[place] LABORATORYCLIA [id number] [place] [address] [place] CNPNon 06-17-2023 CNPN Normal [facility] Home Health Recordson 2023 Home Health Records [id number] B4#1.00TIFF Normal [facility] Physician Referralon 024 Physician Referral [id number] 101#1.00TIFF Normal [facility] Provider Letteron 06-16-2023 Provider Letter Normal [facility] CNPNon 06-15-2023 CNPN Normal [facility] ED Note-Physicianon 06-15-19 24 ED Note-Physician [id number] D0#1.00TIFF Normal [facility] Outside [facility] Correspo ndenceon 06-15-2023 Outside [facility] Correspondence [id number] A2#1.00TIFF Normal [facility] Physician Referralon 024 Physician Referral [id number] 38#1.00TIFF Normal [facility] RAD - CT Reporton 06-15-2023 RAD - CT Report [id number] F9#1.00TIFF [facility] Transfer Inon 06-15-2023 Transfer In [id number] 80#1.00TIFF Normal [facility] Ambulatory Visit Summaryon 0 06-14-2023 Ambulatory Visit Summary Normal [address] [place] [address]- \.br\ Medications\.br\ What How Much When Why [...] for choosing us for your care.\.br\ \.br\ [facility] Auth for Release of Medical Recordson 06-14-2023 Auth for Release of Medical Records [id number] E3#1.00TIFF Normal [facility] CNPNon 06-14-2023 CNPN Normal [facility] Family Medicine Office/Clini c Noteon 06-14-2023 Family Medicine Office/Clinic Note Normal [facility] Comment on above: Result Comment: Elec tronically Signed By: Jaquan Paula\.br\Date and Time Signed: 06/14/23 13:22 EDT Home Health Recordson 2023 Home Health Records [id number] E4#1.00TIFF Normal [facility] Population Healthon 06-11-19 Population Health Normal [facility] Home Health Recordson 2023 Home Health Records [id number] 22#1.00TIFF Normal [facility] Retail - Clinical Noteon Retail - Clinical Note [id number] F2#1.00TIFF Normal [facility] ALLIED HEALTHon 06-09-2023 ALLIED HEALTH Normal [facility] Basic metabolic 2000 panelon 06-09-2023 Anion gap [Moles/Vol] 7 mmol/L Low 9-18 [facility] Comment on above: Order Comment: Speci men Type: BLOOD SPECIMENOrdering Facility: [facility] Address: [address] [place] [address] Performed By: #### 2 4321-2 ####[facility] LABORATORYCLIA [id number] [place] [address] [place] Calcium [Mass/Vol] 8.6 mg/dL Normal 8.5-10.2 [facility] Comment on above: Order Comment: Speci men Type: BLOOD SPECIMENOrdering Facility: [facility] Address: [address] [place] [address] Performed By: #### 2 4321-2 ####[facility] LABORATORYCLIA [id number] [place] [address] [place] Chloride [Moles/Vol] 107 mmol/L High 97-105 [facility] Comment on above: Order Comment: Speci men Type: BLOOD SPECIMENOrdering Facility: [facility] Address: [address] [place] [address] Performed By: #### 2 4321-2 ####[facility] LABORATORYCLIA [id number] [place] [address] [place] CO2 [Moles/Vol] 24 mmol/L Normal 22-30 [facility] Comment on above: Order Comment: Geraldo marrero Type: BLOOD SPECIMENOrdering Facility: [facility] Address: [address] [place] [address] Performed By: #### 2 4321-2 ####[facility] LABORATORYCLIA [id number] [place] [address] [place] Creatinine [Mass/Vol] 0.68 mg/dL Normal 0.58-0.96 [facility] Comment on above: Order Comment: Geraldo men Type: BLOOD SPECIMENOrdering Facility: [facility] Address: [address] [place] [address] Performed By: #### 2 4321-2 ####[facility] LABORATORYIA [id number] [facility] [address] [facility] Creatinine and Glomerular filtration rate.predicted panel (S/P/Bld) 117 mL/min/1.73m??? Normal >=60 [facility] Comment on above: Order Comment: Geraldo men Type: BLOOD SPECIMENOrdering Facility: [facility] Address: [address] [place] [address] Result Comment: Jessica mated Glomerular Filtration Rate [...] actual GFR. Performed By: #### 2 4321-2 ####[facility] LABORATORYIA [id number] [place] [address] [place] Glucose [Mass/Vol] 89 mg/dL Normal 74-99 [facility] Comment on above: Order Comment: Geraldo elida Type: BLOOD SPECIMENOrdering Facility: [facility] Address: [address] [place] [address] Result Comment: The [place] [employer] (ADA) provides guidance for cutoff [...] Standards of Medical Care in Diabetes 2016, [place] [employer]. Diabetes Care. 2016.39(Suppl 1). Performed By: #### 2 4321-2 ####[facility] [id number] [place] [address] [place] Potassium [Moles/Vol] 4.1 mmol/L Normal 3.7-5.1 [facility] Comment on above: Order Comment: Speci men Type: BLOOD SPECIMENOrdering Facility: [facility] Address: [address] [place] [address] Performed By: #### 2 4321-2 ####[facility] [id number] [place] [address] [place] Sodium [Moles/Vol] 138 mmol/L Normal 136-144 [facility] Comment on above: Order Comment: Lyssai men Type: BLOOD SPECIMENOrdering Facility: [facility] Address: [address] [place] [address] Performed By: #### 2 4321-2 ####[facility] [id number] [place] [address] [place] Urea nitrogen [Mass/Vol] 10 mg/dL Normal 7-21 [facility] Comment on above: Order Comment: Speci men Type: BLOOD SPECIMENOrdering Facility: [facility] Address: [address] [place] [address] Performed By: #### 2 4321-2 ####[facility] [id number] [place] [address] [place] CASE MANAGEMon 06-09-2023 CASE MANAGEM Normal [facility] CNDSon 06-09-2023 CNDS [facility] CONSULT PROGon 06-08-2023 CONSULT PROG Normal [facility] l TOXICOLOGY SCREEN, ROUTINE U RINEon 06-08-2023 Amphetamines Confirm (U) [Mass/Vol] Negative Normal Negative [facility] Comment on above: Order Comment: Speci men Type: URINE SPECIMENOrdering Facility: [facility] Address: [address] [place] [address] Result Comment: Cuto ff threshold at 1000 ng/mL. Performed By: #### U TOX2 ####[facility] LABORATORYIA [id number] [place] [address] [place] BARBITURATES, URINE Negative Normal Negative [facility] Comment on above: Order Comment: Speci men Type: URINE SPECIMENOrdering Facility: [facility] Address: [address] [place] [address] Result Comment: Cuto ff threshold at 200 ng/mL. Performed By: #### U TOX2 ####[facility] LABORATORYIA [id number] [place] [address] [place] BENZODIAZEPINES, UR Negative Normal Negative [facility] Comment on above: Order Comment: Speci men Type: URINE SPECIMENOrdering Facility: [facility] Address: [address] [place] [address] Result Comment: Cuto ff threshold at 200 ng/mL. Performed By: #### U TOX2 ####[facility] LABORATORYIA [id number] [place] [address] [place] Cannabinoids Screen Ql (U) Negative Normal Negative [facility] Comment on above: Order Comment: Speci men Type: URINE SPECIMENOrdering Facility: [facility] Address: [address] [place] [address] Result Comment: Cuto ff threshold at 50 ng/mL. Performed By: #### U TOX2 ####[facility] LABORATORYIA [id number] [place] [id number] [place] Cocaine Ql (U) Negative Normal Negative [facility] Comment on above: Order Comment: Speci men Type: URINE SPECIMENOrdering Facility: [facility] Address: [address] [place] [address] Result Comment: Cuto ff threshold at 300 ng/mL. Performed By: #### U TOX2 ####[facility] CENTERIA [id number] [place] [id number] [place] Ethanol (U) [Mass/Vol] <11 Normal <11 [facility] Comment on above: Order Comment: Speci men Type: URINE SPECIMENOrdering Facility: [facility] Address: [address] [place] [address] Performed By: #### U TOX2 ####[facility] CENTERIA [id number] [place] [address] [place] Opiates Screen Ql (U) Negative Normal Negative [facility] Comment on above: Order Comment: Speci men Type: URINE SPECIMENOrdering Facility: [facility] Address: [address] [place] [address] Result Comment: Cuto ff threshold at 300 ng/mL. Performed By: #### U TOX2 ####[facility] CENTERIA [id number] [place] [id number] [place] oxyCODONE cutoff Screen (U) [Mass/Vol] Negative Normal Negative [facility] Comment on above: Order Comment: Speci men Type: URINE SPECIMENOrdering Facility: [facility] Address: [address] [place] [address] Result Comment: Cuto ff threshold at 100 ng/mL. Performed By: #### U TOX2 ####[facility]ENTERIA [id number] [place] [id number] [place] Phencyclidine Ql (U) Negative Normal Negative [facility] Comment on above: Order Comment: Speci men Type: URINE SPECIMENOrdering Facility: [facility] Address: [address] [place] [address] Result Comment: Cuto ff threshold at 25 ng/mL. Performed By: #### U TOX2 ####[facility] CENTERIA [id number] [place] [address] [place] Basic metabolic 2000 panelon 06-07-2023 Anion gap [Moles/Vol] 9 mmol/L Normal 9-18 [facility] Comment on above: Order Comment: Speci men Type: BLOOD SPECIMENOrdering Facility: [facility] Address: [address] [place] [address] Performed By: #### 2 4321-2 ####[facility] LABORATORYIA [id number] [place] [address] [place] Calcium [Mass/Vol] 8.7 mg/dL Normal 8.5-10.2 [facility] Comment on above: Order Comment: Speci men Type: BLOOD SPECIMENOrdering Facility: [facility] Address: [address] [place] [address] Performed By: #### 2 4321-2 ####[facility]IA [id number] [place] [address] [place] Chloride [Moles/Vol] 108 mmol/L High 97-105 [facility] Comment on above: Order Comment: Speci men Type: BLOOD SPECIMENOrdering Facility: [facility] Address: [address] [place] [address] Performed By: #### 2 4321-2 ####[facility]ENTERIA [id number] [place] [address] [place] CO2 [Moles/Vol] 23 mmol/L Normal 22-30 [facility] Comment on above: Order Comment: Speci men Type: BLOOD SPECIMENOrdering Facility: [facility] Address: [address] [place] [address] Performed By: #### 2 4321-2 ####[facility] LABORATORYIA [id number] [place] [address] [place] Creatinine [Mass/Vol] 0.68 mg/dL Normal 0.58-0.96 [facility] Comment on above: Order Comment: Speci men Type: BLOOD SPECIMENOrdering Facility: [facility] Address: [address] [place] [address] Performed By: #### 2 4321-2 ####[facility] LABORATORYIA [id number] [facility] [address] [place] Creatinine and Glomerular filtration rate.predicted panel (S/P/Bld) 117 mL/min/1.73m??? Normal >=60 [facility] Comment on above: Order Comment: Geraldo elida Type: BLOOD SPECIMENOrdering Facility: [facility] Address: [address] [place] [address] Result Comment: Jessica mated Glomerular Filtration Rate [...] actual GFR. Performed By: #### 2 4321-2 ####[facility] LABORATORYCLIA [id number] [facility] [address] [place] Glucose [Mass/Vol] 98 mg/dL Normal 74-99 [facility] Comment on above: Order Comment: Geraldo marrero Type: BLOOD SPECIMENOrdering Facility: [facility] Address: [address] [place] [address] Result Comment: The [place] Diabetes [employer] (ADA) provides guidance for cutoff [...] Standards of Medical Care in Diabetes 2016, [place] [employer]. Diabetes Care. 2016.39(Suppl 1). Performed By: #### 2 4321-2 ####[facility] LABORATORYCLIA [id number] [facility] [place] [address] [place] Potassium [Moles/Vol] 4.2 mmol/L Normal 3.7-5.1 [facility] Comment on above: Order Comment: Speci men Type: BLOOD SPECIMENOrdering Facility: [facility] Address: [address] [place] [address] Performed By: #### 2 4321-2 ####[facility] LABORATORYCLIA [id number] [place] [address] [place] Sodium [Moles/Vol] 140 mmol/L Normal 136-144 [facility] Comment on above: Order Comment: Speci men Type: BLOOD SPECIMENOrdering Facility: [facility] Address: [address] [place] [address] Performed By: #### 2 4321-2 ####[facility] LABORATORYCLIA [id number] [place] [address] [place] Urea nitrogen [Mass/Vol] 9 mg/dL Normal 7-21 [facility] Comment on above: Order Comment: Speci men Type: BLOOD SPECIMENOrdering Facility: [facility] Address: [address] [place] [address] Performed By: #### 2 4321-2 ####[facility] LABORATORYIA [id number] [place] [address] [place] CASE MGT INIT ASSESon 2023 CASE MGT INIT [facility] Normal [facility] CBC panel Auto (Bld)on 06-06 Erythrocyte distribution width (RBC) [Ratio] 13.7 % Normal 11.5-15.0 [facility] Comment on above: Order Comment: Speci men Type: BLOOD SPECIMENOrdering Facility: [facility] Address: [address] [place] [address] Performed By: #### 5 8410-2 ####[facility] LABORATORYCLIA [id number] [place] [address] [place] Hematocrit (Bld) [Volume fraction] 32.6 % Low 36.0-46.0 [facility] Comment on above: Order Comment: Speci men Type: BLOOD SPECIMENOrdering Facility: [facility] Address: [address] [place] [address] Performed By: #### 5 8410-2 ####[facility] LABORATORYCLIA [id number] [place] [address] [place] Hemoglobin (Bld) [Mass/Vol] 10.8 g/dL Low 11.5-15.5 [facility] Comment on above: Order Comment: Speci men Type: BLOOD SPECIMENOrdering Facility: [facility] Address: [address] [place] [address] Performed By: #### 5 8410-2 ####[facility] LABORATORYCLIA [id number] [place] [address] [place] MCH (RBC) [Entitic mass] 29.9 pg Normal 26.0-34.0 [facility] Comment on above: Order Comment: Speci men Type: BLOOD SPECIMENOrdering Facility: [facility] Address: [address] [place] [address] Performed By: #### 5 8410-2 ####[facility]ENTERIA [id number] [address] [place] MCHC (RBC) [Mass/Vol] 33.1 g/dL Normal 30.5-36.0 [facility] Comment on above: Order Comment: Speci men Type: BLOOD SPECIMENOrdering Facility: [facility] Address: [address] [place] [address] Performed By: #### 5 8410-2 ####[facility] LABORATORYIA [id number] [place] [id number] [place] MCV (RBC) [Entitic vol] 90.3 fL Normal 80.0-100.0 [facility] Comment on above: Order Comment: Speci men Type: BLOOD SPECIMENOrdering Facility: [facility] Address: [address] [place] [address] Performed By: #### 5 8410-2 ####[facility]IA [id number] [place] [id number] [place] Nucleated RBC (Bld) [#/Vol] 10*3/uL Normal <0.01 [facility] Comment on above: Order Comment: Speci men Type: BLOOD SPECIMENOrdering Facility: [facility] Address: [address] [place] [address] Performed By: #### 5 8410-2 ####[facility] LABORATORYCLIA [id number] [place] [address] [place] Platelet mean volume (Bld) [Entitic vol] 10.5 fL Normal 9.0-12.7 [facility] Comment on above: Order Comment: Speci men Type: BLOOD SPECIMENOrdering Facility: [facility] Address: [address] [place] [address] Performed By: #### 5 8410-2 ####[facility] LABORATORYIA [id number] [place] [address] [place] Platelets (Bld) [#/Vol] 258 10*3/uL Normal 150-400 [facility] Comment on above: Order Comment: Speci men Type: BLOOD SPECIMENOrdering Facility: [facility] Address: [address] [place] [address] Performed By: #### 5 8410-2 ####[facility] LABORATORYIA [id number] [place] [address] [place] RBC (Bld) [#/Vol] 3.61 10*6/uL Low 3.90-5.20 [facility] Comment on above: Order Comment: Speci men Type: BLOOD SPECIMENOrdering Facility: [facility] Address: [address] [place] [address] Performed By: #### 5 8410-2 ####[facility] LABORATORYCLIA [id number] [place] [address] [place] WBC (Bld) [#/Vol] 3.65 10*3/uL Low 3.70-11.00 [facility] Comment on above: Order Comment: Speci men Type: BLOOD SPECIMENOrdering Facility: [facility] Address: [address] [place] [address] Performed By: #### 5 8410-2 ####[facility] LABORATORYCLIA [id number] [facility] [place] [address] [place] CONSULTon 06-07-2023 CONSULT Normal [facility] CONSULT Normal [facility] NUTRITIONon 06-07-2023 NUTRITION Normal [facility] CBC W Auto Differential pane l (Bld)on 06-06-2023 Basophils (Bld) [#/Vol] 0.05 10*3/uL Normal <0.11 [facility] Comment on above: Order Comment: Speci men Type: BLOOD SPECIMENOrdering Facility: [facility] Address: [address] [place] [address] Performed By: #### 5 7021-8 ####[facility] LABORATORYCLIA [id number] [facility] [address] [place] Basophils/100 WBC (Bld) 1.0 % Normal [facility] Comment on above: Order Comment: Speci men Type: BLOOD SPECIMENOrdering Facility: [facility] Address: [address] [place] [address] Performed By: #### 5 7021-8 ####[facility] LABORATORYCLIA [id number] [facility] [place] [address] [place] Differential cell count method Nom (Bld) Auto Normal [facility] Comment on above: Order Comment: Speci men Type: BLOOD SPECIMENOrdering Facility: [facility] Address: [address] [place] [address] Performed By: #### 5 7021-8 ####[facility] LABORATORYCLIA [id number] [facility] [place] [address] [place] Eosinophils (Bld) [#/Vol] 0.11 10*3/uL Normal <0.46 [facility] Comment on above: Order Comment: Speci men Type: BLOOD SPECIMENOrdering Facility: [facility] Address: [address] [place] [address] Performed By: #### 5 7021-8 ####[facility] LABORATORYCLIA [id number] [facility] [address] [place] [address] [place] Eosinophils/100 WBC (Bld) 2.2 % Normal [facility] Comment on above: Order Comment: Speci men Type: BLOOD SPECIMENOrdering Facility: [facility] Address: [address] [place] [address] Performed By: #### 5 7021-8 ####[facility] LABORATORYCLIA [id number] [place] [address] [place] Erythrocyte distribution width (RBC) [Ratio] 13.4 % Normal 11.5-15.0 [facility] Comment on above: Order Comment: Speci men Type: BLOOD SPECIMENOrdering Facility: [facility] Address: [address] [place] [address] Performed By: #### 5 7021-8 ####[facility] LABORATORYIA [id number] [place] [address] [place] Hematocrit (Bld) [Volume fraction] 35.9 % Low 36.0-46.0 [facility] Comment on above: Order Comment: Speci men Type: BLOOD SPECIMENOrdering Facility: [facility] Address: [address] [place] [address] Performed By: #### 5 7021-8 ####[facility] LABORATORYIA [id number] [place] [address] [place] Hemoglobin (Bld) [Mass/Vol] 12.2 g/dL Normal 11.5-15.5 [facility] Comment on above: Order Comment: Speci men Type: BLOOD SPECIMENOrdering Facility: [facility] Address: [address] [place] [address] Performed By: #### 5 7021-8 ####[facility] LABORATORYCLIA [id number] [place] [address] [place] Immature granulocytes (Bld) [#/Vol] 10*3/uL Normal <0.10 [facility] Comment on above: Order Comment: Speci men Type: BLOOD SPECIMENOrdering Facility: [facility] Address: [address] [place] [address] Performed By: #### 5 7021-8 ####[facility] LABORATORYIA [id number] [place] [address] [place] Immature granulocytes/100 WBC (Bld) 0.2 % Normal [facility] Comment on above: Order Comment: Speci men Type: BLOOD SPECIMENOrdering Facility: [facility] Address: [address] [place] [address] Performed By: #### 5 7021-8 ####[facility] LABORATORYIA [id number] [place] [address] [place] Lymphocytes (Bld) [#/Vol] 1.70 10*3/uL Normal 1.00-4.00 [facility] Comment on above: Order Comment: Speci men Type: BLOOD SPECIMENOrdering Facility: [facility] Address: [address] [place] [address] Performed By: #### 5 7021-8 ####[facility] [id number] [place] [address] [place] Lymphocytes/100 WBC (Bld) 33.3 % Normal [facility] Comment on above: Order Comment: Speci men Type: BLOOD SPECIMENOrdering Facility: [facility] Address: [address] [place] [address] Performed By: #### 5 7021-8 ####[facility]ENTERIA [id number] [place] [id number] [place] MCH (RBC) [Entitic mass] 30.1 pg Normal 26.0-34.0 [facility] Comment on above: Order Comment: Speci men Type: BLOOD SPECIMENOrdering Facility: [facility] Address: [address] [place] [address] Performed By: #### 5 7021-8 ####[facility]ENTERIA [id number] [place] [id number] [place] MCHC (RBC) [Mass/Vol] 34.0 g/dL Normal 30.5-36.0 [facility] Comment on above: Order Comment: Speci men Type: BLOOD SPECIMENOrdering Facility: [facility] Address: [address] [place] [address] Performed By: #### 5 7021-8 ####[facility] LABORATORYCLIA [id number] [place] [address] [place] MCV (RBC) [Entitic vol] 88.6 fL Normal 80.0-100.0 [facility] Comment on above: Order Comment: Speci men Type: BLOOD SPECIMENOrdering Facility: [facility] Address: [address] [place] [address] Performed By: #### 5 7021-8 ####[facility] LABORATORYCLIA [id number] [place] [address] [place] Monocytes (Bld) [#/Vol] 0.42 10*3/uL Normal <0.87 [facility] Comment on above: Order Comment: Speci men Type: BLOOD SPECIMENOrdering Facility: [facility] Address: [address] [place] [address] Performed By: #### 5 7021-8 ####[facility] LABORATORYIA [id number] [place] [id number] [place] Monocytes/100 WBC (Bld) 8.2 % Normal [facility] Comment on above: Order Comment: Speci men Type: BLOOD SPECIMENOrdering Facility: [facility] Address: [address] [place] [address] Performed By: #### 5 7021-8 ####[facility] LABORATORYIA [id number] [place] [id number] [place] Neutrophils (Bld) [#/Vol] 2.81 10*3/uL Normal 1.45-7.50 [facility] Comment on above: Order Comment: Speci men Type: BLOOD SPECIMENOrdering Facility: [facility] Address: [address] [place] [address] Performed By: #### 5 7021-8 ####[facility] LABORATORYCLIA [id number] [place] [address] [place] Neutrophils/100 WBC (Bld) 55.1 % Normal [facility] Comment on above: Order Comment: Speci men Type: BLOOD SPECIMENOrdering Facility: [facility] Address: [address] [place] [address] Performed By: #### 5 7021-8 ####[facility]IA [id number] [place] [address] [place] Nucleated RBC (Bld) [#/Vol] 10*3/uL Normal <0.01 [facility] Comment on above: Order Comment: Speci men Type: BLOOD SPECIMENOrdering Facility: [facility] Address: [address] [place] [address] Performed By: #### 5 7021-8 ####[facility]IA [id number] [place] [address] [place] Nucleated RBC/100 WBC (Bld) [Ratio] 0.0 /100 WBC Normal [facility] Comment on above: Order Comment: Speci men Type: BLOOD SPECIMENOrdering Facility: [facility] Address: [address] [place] [address] Performed By: #### 5 7021-8 ####[facility]IA [id number] [place] [address] [place] Platelet mean volume (Bld) [Entitic vol] 10.3 fL Normal 9.0-12.7 [facility] Comment on above: Order Comment: Speci men Type: BLOOD SPECIMENOrdering Facility: [facility] Address: [address] [place] [address] Performed By: #### 5 7021-8 ####[facility]IA [id number] [place] [address] [place] Platelets (Bld) [#/Vol] 323 10*3/uL Normal 150-400 [facility] Comment on above: Order Comment: Speci men Type: BLOOD SPECIMENOrdering Facility: [facility] Address: [address] [place] [address] Performed By: #### 5 7021-8 ####[facility]ORATORYIA [id number] [place] [address] [place] RBC (Bld) [#/Vol] 4.05 10*6/uL Normal 3.90-5.20 [facility] Comment on above: Order Comment: Speci men Type: BLOOD SPECIMENOrdering Facility: [facility] Address: [address] [place] [address] Performed By: #### 5 7021-8 ####[facility] LABORATORYCLIA [id number] [place] [address] [place] WBC (Bld) [#/Vol] 5.10 10*3/uL Normal 3.70-11.00 [facility] Comment on above: Order Comment: Speci men Type: BLOOD SPECIMENOrdering Facility: [facility] Address: [address] [place] [address] Performed By: #### 5 7021-8 ####[facility]ENTERCLIA [id number] [place] [address] [place] [address] ABD/PEL W IVCONon 024 CT ABD/PEL W IVCON Normal [facility] Comprehensive metabolic 2000 panelon 06-06-2023 Albumin [Mass/Vol] 4.3 g/dL Normal 3.9-4.9 [facility] Comment on above: Order Comment: Speci men Type: BLOOD SPECIMENOrdering Facility: [facility] Address: [address] [place] [address] Performed By: #### 2 4323-8, 3039-3, ####[facility] LABORATORYCLIA [id number] [place] [address] [place] ALP [Catalytic activity/Vol] 62 U/L Normal 34-123 [facility] Comment on above: Order Comment: Speci men Type: BLOOD SPECIMENOrdering Facility: [facility] Address: [address] [place] [address] Performed By: #### 2 4323-8, 0-3, ####[facility] LABORATORYCLIA [id number] [place] [address] [place] ALT [Catalytic activity/Vol] 16 U/L Normal 7-38 [facility] Comment on above: Order Comment: Speci men Type: BLOOD SPECIMENOrdering Facility: [facility] Address: [address] [place] [address] Performed By: #### 2 4323-8, 0-3, ####[facility] LABORATORYCLIA [id number] [place] [address] [place] Anion gap [Moles/Vol] 10 mmol/L Normal 9-18 [facility] Comment on above: Order Comment: Speci men Type: BLOOD SPECIMENOrdering Facility: [facility] Address: [address] [place] [address] Performed By: #### 2 4323-8, 3, ####[facility] LABORATORYCLIA [id number] [place] [address] [place] AST [Catalytic activity/Vol] 28 U/L Normal 13-35 [facility] Comment on above: Order Comment: Speci men Type: BLOOD SPECIMENOrdering Facility: [facility] Address: [address] [place] [address] Performed By: #### 2 4323-8, 3, ####[facility]ORATORYIA [id number] [place] [address] [place] Bilirubin [Mass/Vol] 0.3 mg/dL Normal 0.2-1.3 [facility] Comment on above: Order Comment: Speci men Type: BLOOD SPECIMENOrdering Facility: [facility] Address: [address] [place] [address] Performed By: #### 2 4323-8, 3039-3, ####[facility] LABORATORYCLIA [id number] [place] [address] [place] Calcium [Mass/Vol] 9.1 mg/dL Normal 8.5-10.2 [facility] Comment on above: Order Comment: Speci men Type: BLOOD SPECIMENOrdering Facility: [facility] Address: [address] [place] [address] [place] [address] Performed By: #### 2 4323-8, 3040-3, ####[facility] LABORATORYCLIA [id number] [place] [address] [place] Chloride [Moles/Vol] 103 mmol/L Normal 97-105 [facility] Comment on above: Order Comment: Speci men Type: BLOOD SPECIMENOrdering Facility: [facility] Address: [address] [place] [address] Performed By: #### 2 4323-8, 3040-3, ####[facility] LABORATORYCLIA [id number] [place] [address] [place] CO2 [Moles/Vol] 23 mmol/L Normal 22-30 [facility] Comment on above: Order Comment: Speci men Type: BLOOD SPECIMENOrdering Facility: [facility] Address: [address] [place] [address] Performed By: #### 2 4323-8, 0-3, ####[facility] LABORATORYCLIA [id number] [place] [address] [place] Creatinine [Mass/Vol] 0.74 mg/dL Normal 0.58-0.96 [facility] Comment on above: Order Comment: Speci men Type: BLOOD SPECIMENOrdering Facility: [facility] Address: [address] [place] [address] Performed By: #### 2 4323-8, 0-3, ####[facility] LABORATORYCLIA [id number] [facility] [place] [address] [place] Creatinine and Glomerular filtration rate.predicted panel (S/P/Bld) 109 mL/min/1.73m??? Normal >=60 [facility] Comment on above: Order Comment: Speci men Type: BLOOD SPECIMENOrdering Facility: [facility] Address: [address] [place] [address] Result Comment: Jessica mated Glomerular Filtration Rate [...] GFR. Performed By: #### 2 4323-8, 0-3, ####[facility] LABORATORYCLIA [id number] [place] [address] [place] Glucose [Mass/Vol] 91 mg/dL Normal 74-99 [facility] Comment on above: Order Comment: Geraldo marrero Type: BLOOD SPECIMENOrdering Facility: [facility] Address: [address] [place] [id number] Result Comment: The [place] [employer] (ADA) provides guidance for cutoff [...] Standards of Medical Care in Diabetes 2016, [place] [employer]. Diabetes Care. 2016.39(Suppl 1). Performed By: #### 2 4323-8, 3039-3, ####[facility] LABORATORYCLIA [id number] [place] [address] [place] Potassium [Moles/Vol] 4.0 mmol/L Normal 3.7-5.1 [facility] Comment on above: Order Comment: Geraldo marrero Type: BLOOD SPECIMENOrdering Facility: [facility] Address: [address] [place] [address] Performed By: #### 2 4323-8, 0-3, ####[facility] LABORATORYCLIA [id number] [place] [address] [place] Protein [Mass/Vol] 7.4 g/dL Normal 6.3-8.0 [facility] Comment on above: Order Comment: Speci men Type: BLOOD SPECIMENOrdering Facility: [facility] Address: [address] [place] [address] Performed By: #### 2 4323-8, 3040-3, ####[facility] LABORATORYCLIA [id number] [facility] [place] [address] [place] Sodium [Moles/Vol] 136 mmol/L Normal 136-144 [facility] Comment on above: Order Comment: Speci men Type: BLOOD SPECIMENOrdering Facility: [facility] Address: [address] [place] [address] Performed By: #### 2 4323-8, 0-3, ####[facility]ENTERIA [id number] [place], [place] [address] [place] [address] Urea nitrogen [Mass/Vol] 14 mg/dL Normal 7- [facility] Comment on above: Order Comment: Speci men Type: BLOOD SPECIMENOrdering Facility: [facility] Address: [address] [place] [address] Performed By: #### 2 4323-8, 0-3, ####[facility]ENTERIA [id number] [place] [address] [place] ECG COMPLETEon 06-06-2023 ECG COMPLETE Normal [facility] ED NOTEon 06-06-2023 ED NOTE Normal [facility] ED NOTE Normal [facility] ED PROV NOTEon 06-06-2023 ED PROV NOTE Normal [facility] FLUABV+SARS-CoV-2+RSV Pnl Re sp HANK+probeon 06-06-2023 FLUABV+SARS-CoV-2+R SV Pnl Resp HANK+probe Normal [facility] Comment on above: Performed By: #### 9 5941-1 ####[facility] LABORATORYCLIA [id number] [facility] [place] [address] [place] HISTORY PHYSICALon HISTORY PHYSICAL Normal [facility] Lipase SerPl-cCncon 06-06-19 24 Lipase [Catalytic activity/Vol] 75 U/L High 16-61 [facility] Comment on above: Order Comment: Speci men Type: BLOOD SPECIMENOrdering Facility: [facility] Address: [address] [place] [address] Performed By: #### 2 4323-8, 3040-3, 83248-3 ####[facility]IA [id number] [place] [address] [place] Magnesium SerPl-mCncon 06-05 Magnesium [Mass/Vol] 2.1 mg/dL Normal 1.7-2.3 [facility] Comment on above: Order Comment: Speci men Type: BLOOD SPECIMENOrdering Facility: [facility] Address: [address] [place] [address] Performed By: #### 2 4323-8, 0-3, ####[facility]ENTERIA [id number] [place] [address] [place] Urinalysis complete panel (U )on 06-06-2023 Bilirubin Ql (U) Negative Normal Negative [facility] Comment on above: Order Comment: Speci men Type: URINE SPECIMENOrdering Facility: [facility] Address: [address] [place] [address] Performed By: #### 2 4356-8 ####[facility]ENTERIA [id number] [place] [address] [place] Clarity (Unsp spec) Clear Normal Clear [facility] Comment on above: Order Comment: Speci men Type: URINE SPECIMENOrdering Facility: [facility] Address: [address] [place] [address] Performed By: #### 2 4356-8 ####[facility]ENTERIA [id number] [place] [address] [place] Color (U) Light Yellow Normal yellow [facility] Comment on above: Order Comment: Speci men Type: URINE SPECIMENOrdering Facility: [facility] Address: [address] [place] [address] Performed By: #### 2 4356-8 ####[facility]ENTERIA [id number] [place] [address] [place] Epithelial cells LM.HPF (Urine sed) [#/Area] Few Normal [facility] Comment on above: Order Comment: Speci men Type: URINE SPECIMENOrdering Facility: [facility] Address: [address] [place] [address] Performed By: #### 2 4356-8 ####[facility]IA [id number] [place] [address] [place] Glucose Test strip (U) [Mass/Vol] Negative Normal Trace, Negative [facility] Comment on above: Order Comment: Speci men Type: URINE SPECIMENOrdering Facility: [facility] Address: [address] [place] [address] Performed By: #### 2 4356-8 ####[facility]IA [id number] [place] [address] [place] Hemoglobin Ql (U) Negative Normal Negative, Trace [facility] Comment on above: Order Comment: Speci men Type: URINE SPECIMENOrdering Facility: [facility] Address: [address] [place] [address] Performed By: #### 2 4356-8 ####[facility] [id number] [place] [address] [place] Ketones Ql (U) Negative Normal Negative, Trace [facility] Comment on above: Order Comment: Speci men Type: URINE SPECIMENOrdering Facility: [facility] Address: [address] [place] [address] Performed By: #### 2 4356-8 ####[facility]IA [id number] [place] [address] [place] Leukocyte esterase Test strip Ql (U) Negative Normal Negative, 25 Patito/uL [facility] Comment on above: Order Comment: Speci men Type: URINE SPECIMENOrdering Facility: [facility] Address: [address] [place] [address] Performed By: #### 2 4356-8 ####[facility] [id number] [place] [id number] [place] Nitrite Ql (U) Negative Normal Negative [facility] Comment on above: Order Comment: Speci men Type: URINE SPECIMENOrdering Facility: [facility] Address: [address] [place] [address] Performed By: #### 2 4356-8 ####[facility] [id number] [place] [id number] [place] pH (U) 7.0 [pH] Normal 5.0-8.0 [facility] Comment on above: Order Comment: Speci men Type: URINE SPECIMENOrdering Facility: [facility] Address: [address] [place] [address] Performed By: #### 2 4356-8 ####[facility] [id number] [place] [id number] [place] Protein (U) [Mass/Vol] Trace Normal Trace, Negative [facility] Comment on above: Order Comment: Speci men Type: URINE SPECIMENOrdering Facility: [facility] Address: [address] [place] [address] Performed By: #### 2 4356-8 ####[facility] [id number] [place] [id number] [place] RBC LM.HPF (Urine sed) [#/Area] 3-5 /HPF Abnormal 0-3 /HPF [facility] Comment on above: Order Comment: Speci men Type: URINE SPECIMENOrdering Facility: [facility] Address: [address] [place] [address] Performed By: #### 2 4356-8 ####[facility] [id number] [place] [address] [place] Specific gravity (U) [Rel density] 1.024 Normal 1.005-1.030 [facility] Comment on above: Order Comment: Speci men Type: URINE SPECIMENOrdering Facility: [facility] Address: [address] [place] [address] Performed By: #### 2 4356-8 ####[facility] LABORATORYCLIA [id number] [place] [address] [place] Urobilinogen Ql (U) Normal Normal Normal [facility] Comment on above: Order Comment: Speci men Type: URINE SPECIMENOrdering Facility: [facility] Address: [address] [place] [address] Performed By: #### 2 4356-8 ####[facility]IA [id number] [place] [id number] [place] WBC LM.HPF (Urine sed) [#/Area] 0-5 /HPF Normal 0-5 /HPF [facility] Comment on above: Order Comment: Speci men Type: URINE SPECIMENOrdering Facility: [facility] Address: [address] [place] [address] Performed By: #### 2 4356-8 ####[facility]IA [id number] [place] [address] [place] ED Note-Physicianon 06-04-19 ED Note-Physician [id number] 4B#1.00TIFF Normal [facility] Ambulatory Visit Summaryon 0 06-02-2023 Ambulatory Visit Summary Normal [address] [place] [address]- \.br\ Medications\.br\ What How Much When Why [...] for choosing us for your care.\.br\ \.br\ [facility] Family Medicine Office/Clini c Noteon 06-02-2023 Family Medicine Office/Clinic Note Normal [facility] Comment on above: Result Comment: Elec tronically Signed By: Jaquan Paula\.br\Date and Time Signed: 06/02/23 12:30 EDT Provider Letteron 06-02-2023 Provider Letter Normal [facility] Provider Letter Normal [facility] Population Healthon 05-31-19 Population Health Normal [facility] Alanine aminotransferase [En zymatic activity/volume] in Serum or PlasmaOrdered By: Gabino Parker on 05-30-2023 ALT [Catalytic activity/Vol] 11 U/L Normal 7-52 [facility] Comment on above: Performed By: #### H EPATIC, MG, LIPASE, CMP, CBC #### [address] Albumin [Mass/volume] in Ser um or Plasma by Bromocresol green (BCG) dye binding methoOrdered By: Gabino Parker on 05-30-2023 Albumin BCG dye [Mass/Vol] 4.1 g/dL 3.5-5.7 [facility] Alkaline phosphatase [Enzyma tic activity/volume] in Serum or PlasmaOrdered By: Gabino Parker on 05-30-2023 ALP [Catalytic activity/Vol] 56 U/L Normal 34-104 [facility] Comment on above: Performed By: #### H EPATIC, MG, LIPASE, CMP, CBC #### [address] Aspartate aminotransferase [ Enzymatic activity/volume] in Serum or PlasmaOrdered By: Gabino Parker on 05-30-2023 AST [Catalytic activity/Vol] 22 U/L Normal 13-39 [facility] Comment on above: Performed By: #### H EPATIC, MG, LIPASE, CMP, CBC #### [address] Automated basophil %Ordered By: Gabino Parker on 05-30-2023 Basophils/100 WBC (Bld) 0.4 % Normal . [facility] Comment on above: Performed By: #### H EPATIC, MG, LIPASE, CMP, CBC #### [address] Automated basophil countOrde red By: Gabino Parker on 05-30-2023 Basophils (Bld) [#/Vol] 0.0 10*3/uL Normal 0.0-0.2 [facility] Comment on above: Result Comment: PERF ORMED BY: [place] [address] PATHOLOGIST AUTO WINDER BAUTISTA BAKER M.D. Performed By: #### H EPATIC, MG, LIPASE, CMP, CBC #### [address] Automated blood monocyte cou ntOrdered By: Gabino Parker on 05-30-2023 Monocytes (Bld) [#/Vol] 0.4 10*3/uL Normal 0.0-0.8 [facility] Comment on above: Performed By: #### H EPATIC, MG, LIPASE, CMP, CBC #### [address] Automated eosinophil %Ordere d By: Gabino Parker on 05-30-2023 Eosinophils/100 WBC (Bld) 0.4 % Normal . [facility] Comment on above: Performed By: #### H EPATIC, MG, LIPASE, CMP, CBC #### [address] Automated eosinophil countOr dered By: Gabino Elena on 05-30-2023 Eosinophils (Bld) [#/Vol] 0.0 10*3/uL Normal 0.0-0.45 [facility] Comment on above: Performed By: #### H EPATIC, MG, LIPASE, CMP, CBC #### [address] Automated erythrocytes count in urine sediment (number/area)Ordered By: Gabino Parker on 05-30-2023 RBC Auto (Urine sed) [#/Area] 3-4 [HPF] 0-4 [facility] Automated leukocytes count i n urine sediment (number/area)Ordered By: Gabino Parker on 05-30-2023 WBC Auto (Urine sed) [#/Area] 5-9 [HPF] High 0-4 [facility] Automated monocyte %Ordered By: Gabino Parker on 05-30-2023 Monocytes/100 WBC (Bld) 4.5 % Normal . [facility] Comment on above: Performed By: #### H EPATIC, MG, LIPASE, CMP, CBC #### [address] Automated neutrophil %Ordere d By: Gabino Parker on 05-30-2023 Neutrophils/100 WBC (Bld) 79.0 % Normal . [facility] Comment on above: Performed By: #### H EPATIC, MG, LIPASE, CMP, CBC #### [address] Automated urine color determ inationOrdered By: Gabino Parker on 05-30-2023 Color (U) Yellow Normal Yellow [facility] Comment on above: Order Comment: Name Collection Type:: Clean-Voided Midstream Performed By: #### A DDONUAPLUS, UHCG, CUU #### [address] Bilirubin Test strip Ql (U)O rdered By: Gabino Parker on 05-30-2023 Bilirubin Ql (U) Negative Negative [facility] Bilirubin.direct [Mass/volum e] in Serum or PlasmaOrdered By: Gabino Parker on 05-30-2023 Bilirubin.direct [Mass/Vol] 0.10 mg/dL 0.03-0.18 [facility] Bilirubin.total [Mass/volume ] in Serum or PlasmaOrdered By: Gabino Parker on 05-30-2023 Bilirubin [Mass/Vol] 0.4 mg/dL Normal 0.3-1.0 [facility] Comment on above: Performed By: #### H EPATIC, MG, LIPASE, CMP, CBC #### [facility] [address] [place] [address] [place] CNPNon 05-30-2023 CNPN Normal [facility] CT abdomen pelvis w conon CT abdomen pelvis w con [facility] [place] [address] [place] [address] CT Scan Report Signed Patient: Abbey Garcia MR#: [id number] : 1990 Acct:[id number] Age/Sex: 33 / F ADM Date: 05/30/23 Loc: ER Room: Type: [facility] ER Attending Dr: Copies to: Gabino [...] Melisa Hutchinson M.D.05/30/2023 5:49 PM Dictation Location: [place] [address] Transcribed By: SULEMA 05/30/231748 Dictated By: Melisa Hutchinson II, MD 05/30/231739 Signed By: 05/30/231748 Normal [facility] Calcium [Mass/volume] in Ser um or PlasmaOrdered By: Gabino Parker on 05-30-2023 Calcium [Mass/Vol] 9.3 mg/dL Normal 8.6-10.3 [facility] Comment on above: Performed By: #### H EPATIC, MG, LIPASE, CMP, CBC #### [facility] [address] [place] [address] [place] Carbon dioxide, total [Moles /volume] in Serum or PlasmaOrdered By: Gabino Parker on 05-30-2023 CO2 [Moles/Vol] 27.7 mmol/L Normal 21.0-31.0 [facility] Comment on above: Performed By: #### H EPATIC, MG, LIPASE, CMP, CBC #### [facility] [address] [place] [id number] [place] Chloride [Moles/volume] in S elder or PlasmaOrdered By: Gabino Parker on 05-30-2023 Chloride [Moles/Vol] 103 mmol/L Normal 98-107 [facility] Comment on above: Performed By: #### H EPATIC, MG, LIPASE, CMP, CBC #### [address] Complete Blood Count Auto Di ffon 05-30-2023 Mean Corpuscular HGB Conc 33.8 g/dL Normal 32.0-35.0 [facility] Comment on above: Performed By: #### H EPATIC, MG, LIPASE, CMP, CBC #### [address] Monocytes/100 WBC (Bld) 16.47 % Normal 0.00-20.00 [facility] Comment on above: Performed By: #### H EPATIC, MG, LIPASE, CMP, CBC #### [address] NRBC% 0.1 /100{WBC} Normal 0-0.5 [facility] Comment on above: Performed By: #### H EPATIC, MG, LIPASE, CMP, CBC #### [address] Comprehensive Metabolic Pane nestor 05-30-2023 Albumin [Mass/Vol] 4.1 g/dL Normal 3.5-5.7 [facility] Comment on above: Performed By: #### H EPATIC, MG, LIPASE, CMP, CBC #### [address] Creatinine Clr Calc Pharmacy 118.42 Normal [facility] Comment on above: Performed By: #### H EPATIC, MG, LIPASE, CMP, CBC #### [address] GFR/1.73 sq M.predicted MDRD (S/P/Bld) [Vol rate/Area] mL/min/{1.73_m2} Normal [facility] Comment on above: Performed By: #### H EPATIC, MG, LIPASE, CMP, CBC #### [address] Creatinine [Mass/volume] in Serum or PlasmaOrdered By: Gabino Parker on 05-30-2023 Creatinine [Mass/Vol] 0.70 mg/dL Normal 0.60-1.20 [facility] Comment on above: Performed By: #### H EPATIC, MG, LIPASE, CMP, CBC #### [facility] [address] [place] [address] [place] Dipstick and Microscopicon 0 05-30-2023 Appearance (U) Clear Normal Clear [facility] Comment on above: Order Comment: Name Collection Type:: Clean-Voided Midstream Performed By: #### A DDONUAPLUS, UHCG, CUU #### [address] Bacteria,Urine None Seen Normal None Seen [facility] Comment on above: Order Comment: Name Collection Type:: Clean-Voided Midstream Performed By: #### A DDONUAPLUS, UHCG, CUU #### [address] Bilirubin,Urine Negative Normal Negative [facility] Comment on above: Order Comment: Name Collection Type:: Clean-Voided Midstream Performed By: #### A DDONUAPLUS, UHCG, CUU #### [address] Glucose Ql (U) Normal Normal Normal [facility] Comment on above: Order Comment: Name Collection Type:: Clean-Voided Midstream Performed By: #### A DDONUAPLUS, UHCG, CUU #### [address] Hyaline Casts,Urine 0-8 Normal 0-8 [facility] Comment on above: Order Comment: Name Collection Type:: Clean-Voided Midstream Performed By: #### A DDONUAPLUS, UHCG, CUU #### [address] Ketones Ql (U) Negative Normal Negative [facility] Comment on above: Order Comment: Name Collection Type:: Clean-Voided Midstream Performed By: #### A DDONUAPLUS, UHCG, CUU #### [address] Leukocyte esterase Test strip Ql (U) 1+ High Negative [facility] Comment on above: Order Comment: Name Collection Type:: Clean-Voided Midstream Performed By: #### A DDONUAPLUS, UHCG, CUU #### [place] [address] [place] Nitrite,Urine Negative Normal Negative [facility] Comment on above: Order Comment: Name Collection Type:: Clean-Voided Midstream Performed By: #### A DDONUAPLUS, UHCG, CUU #### [place] [address] [place] Occult Blood,Urine Negative Normal Negative [facility] Comment on above: Order Comment: Name Collection Type:: Clean-Voided Midstream Performed By: #### A DDONUAPLUS, UHCG, CUU #### [place] [address] [place] Protein,Urine Negative Normal Negative [facility] Comment on above: Order Comment: Name Collection Type:: Clean-Voided Midstream Performed By: #### A DDONUAPLUS, UHCG, CUU #### [address] RBC,Urine 3-4 Normal 0-4 [facility] Comment on above: Order Comment: Name Collection Type:: Clean-Voided Midstream Performed By: #### A DDONUAPLUS, UHCG, CUU #### [place] [address] [place] Specificy [place],Urine 1.011 Normal 1.001-1.030 [facility] Comment on above: Order Comment: Name Collection Type:: Clean-Voided Midstream Performed By: #### A DDONUAPLUS, UHCG, CUU #### [place] [address] [place] Squamous Epithelial Cell,Urine 0-1 Normal 0-2 [facility] Comment on above: Order Comment: Name Collection Type:: Clean-Voided Midstream Performed By: #### A DDONUAPLUS, UHCG, CUU #### [address] Urobilinogen,Urine Normal Normal Normal [facility] Comment on above: Order Comment: Name Collection Type:: Clean-Voided Midstream Performed By: #### A DDONUAPLUS, UHCG, CUU #### [address] WBC,Urine 5-9 High 0-4 [facility] Comment on above: Order Comment: Name Collection Type:: Clean-Voided Midstream Performed By: #### A DDONUAPLUS, UHCG, CUU #### [address] Erythrocyte distribution wid th [Ratio] by Automated countOrdered By: Gabino Parker on 05-30-2023 Erythrocyte distribution width (RBC) [Ratio] 15.5 % High 11.9-15.3 [facility] Comment on above: Performed By: #### H EPATIC, MG, LIPASE, CMP, CBC #### [address] Erythrocytes [#/volume] in B lood by Automated countOrdered By: Gabino Parker on 05-30-2023 RBC (Bld) [#/Vol] 3.86 10*6/uL Normal 3.60-5.00 [facility] Comment on above: Performed By: #### H EPATIC, MG, LIPASE, CMP, CBC #### [address] Glucose [Mass/volume] in Ser um or PlasmaOrdered By: Gabino Parker on 05-30-2023 Glucose [Mass/Vol] 81 mg/dL Normal 70-100 [facility] Comment on above: ADA recommended refe rence rangeRandom Glucose Reference Range is dependent on time and content of last meal. Glucose of more than 200 mg/dL in a nonstressed, ambulatory subject supports the diagnosis of Diabetes Mellitus. Result Comment: [place] om Glucose Reference Range is dependent on time and content of last meal. Glucose of more than 200 mg/dL in a nonstressed, ambulatory subject supports the diagnosis of Diabetes Mellitus. ADA recommended reference range Performed By: #### H EPATIC, MG, LIPASE, CMP, CBC #### [address] HCG ( test) [place].rapi d Ql (U)Ordered By: Gabino Parker on 05-30-2023 HCG ( test) Ql (U) Negative [facility] HCG,Urineon 05-30-2023 Beta HCG ( test) Ql (U) Negative Normal [facility] Comment on above: Order Comment: Name Collection Type:: Clean-Voided Midstream Result Comment: PERF ORMED BY: [place] [address] PATHOLOGIST AUTO WINDER BAUTISTA BAKER M.D. Performed By: #### A DDONUAPLUS, CG, CUU #### [address] Hematocrit [Volume Fraction] of Blood by Automated countOrdered By: Gabino Parker on 05-30-2023 Hematocrit (Bld) [Volume fraction] 34.9 % Normal 34.0-46.4 [facility] Comment on above: Performed By: #### H EPATIC, MG, LIPASE, CMP, CBC #### [address] Hemoglobin [Mass/volume] in BloodOrdered By: Gabino Parker on 05-30-2023 Hemoglobin (Bld) [Mass/Vol] 11.8 g/dL Normal 11.8-15.4 [facility] Comment on above: Performed By: #### H EPATIC, MG, LIPASE, CMP, CBC #### [address] Hepatic Panelon 05-30-2023 Bilirubin,Indirect 0.3 mg/dL Normal [facility] Comment on above: Performed By: #### H EPATIC, MG, LIPASE, CMP, CBC #### [address] Bilirubin.indirect [Mass/Vol] 0.10 mg/dL Normal 0.03-0.18 [facility] Comment on above: Performed By: #### H EPATIC, MG, LIPASE, CMP, CBC #### [address] Ketones Auto test strip (U) [Mass/Vol]Ordered By: Gabino Parker on 05-30-2023 Ketones (U) [Mass/Vol] Negative Negative [facility] - UrinalysisOrder ed By: Gabino Parker on 05-30-2023 Hyaline casts LM Ql (Urine sed) 0-8 [LPF] 0-8 [facility] Leukocytes [#/volume] correc darvin for nucleated erythrocytes in Blood by Automated counOrdered By: Gabino Parker on 05-30-2023 WBC corrected for nucl RBC Auto (Bld) [#/Vol] 8.8 10*3/uL 3.8-11.6 [facility] Leukocytes [#/volume] in Blo od by Automated countOrdered By: Gabino Parker on 05-30-2023 WBC (Bld) [#/Vol] 8.8 10*3/uL Normal 3.8-11.6 [facility] Comment on above: Performed By: #### H EPATIC, MG, LIPASE, CMP, CBC #### [address] Lipase [Enzymatic activity/v olume] in Serum or PlasmaOrdered By: Gabino Parker on 05-30-2023 Lipase [Catalytic activity/Vol] 37.0 U/L Normal 11.0-82.0 [facility] Comment on above: Result Comment: PERF ORMED BY: [place] [address] PATHOLOGIST AUTO WINDER BAUTISTA BAKER M.D. Performed By: #### H EPATIC, MG, LIPASE, CMP, CBC #### [address] Lymphocytes [#/volume] in Bl ood by Automated countOrdered By: Gabino Parker on 05-30-2023 Lymphocytes (Bld) [#/Vol] 1.4 10*3/uL Normal 1.00-4.8 [facility] Comment on above: Performed By: #### H EPATIC, MG, LIPASE, CMP, CBC #### [address] Lymphocytes/100 leukocytes i n Blood by Automated countOrdered By: Gabino Parker on 05-30-2023 Lymphocytes/100 WBC (Bld) 15.7 % Normal . [facility] Comment on above: Performed By: #### H EPATIC, MG, LIPASE, CMP, CBC #### [address] MCH [Entitic mass] by Automa darvin countOrdered By: Gabino Parker on 05-30-2023 MCH (RBC) [Entitic mass] 30.5 pg Normal 24.7-34.3 [facility] Comment on above: Performed By: #### H EPATIC, MG, LIPASE, CMP, CBC #### [address] MCHC Auto (RBC) [Mass/Vol]Or dered By: Gabino Parker on 05-30-2023 MCHC (RBC) [Mass/Vol] 33.8 g/dL 32.0-35.0 [facility] MCV [Entitic volume] by Auto mated countOrdered By: Gabino Parker on 05-30-2023 MCV (RBC) [Entitic vol] 90.3 fL Normal 80-100 [facility] Comment on above: Performed By: #### H EPATIC, MG, LIPASE, CMP, CBC #### [address] Magnesium [Mass/volume] in S elder or PlasmaOrdered By: Gabino Parker on 05-30-2023 Magnesium [Mass/Vol] 2.1 mg/dL Normal 1.9-2.7 [facility] Comment on above: Performed By: #### H EPATIC, MG, LIPASE, CMP, CBC #### [address] Monocyte distribution width [Entitic volume] in Blood by AutomatedOrdered By: Gabino Parker on 05-30-2023 Monocyte distribution width Auto (Bld) [Entitic vol] 16.47 % 0.00-20.00 [facility] Neutrophils [#/volume] in Bl ood by Automated countOrdered By: Gabino Parker on 05-30-2023 Neutrophils (Bld) [#/Vol] 6.9 10*3/uL Normal 1.8-7.7 [facility] Comment on above: Performed By: #### H EPATIC, MG, LIPASE, CMP, CBC #### [facility] [address] Nitrite Test strip Ql (U)Ord ered By: Gabino Parker on 05-30-2023 Nitrite Ql (U) Negative Negative [facility] No Panel InformationOrdered By: Gabino Parker on 05-30-2023 Estimated GFR (CKD-EPI) > 60.0 mL/Min [facility] Creatinine Clearance (Chem 118.42 [facility] Nucleated erythrocytes [Pres ence] in Blood by Automated countOrdered By: Gabino Parker on 05-30-2023 Nucleated RBC Auto Ql (Bld) 0.1 /100{WBC} 0-0.5 [facility] Platelet mean volume [Entiti c volume] in Blood by Automated countOrdered By: Gabino Parker on 05-30-2023 Platelet mean volume (Bld) [Entitic vol] 9.5 fL Normal 6.3-10.7 [facility] Comment on above: Performed By: #### H EPATIC, MG, LIPASE, CMP, CBC #### [facility] [address] [place] [address] [place] Platelets [#/volume] in Bloo d by Automated countOrdered By: Gabino Parker on 05-30-2023 Platelets (Bld) [#/Vol] 270 10*3/uL Normal 150-450 [facility] Comment on above: Performed By: #### H EPATIC, MG, LIPASE, CMP, CBC #### [facility] [address] [place] [address] [place] Potassium [Moles/volume] in Serum or PlasmaOrdered By: Gabino Parker on 05-30-2023 Potassium [Moles/Vol] 4.0 mmol/L Normal 3.5-5.1 [facility] Comment on above: Performed By: #### H EPATIC, MG, LIPASE, CMP, CBC #### [facility] [address] [place] [address] Protein Auto test strip (U) [Mass/Vol]Ordered By: Gabino Parker on 05-30-2023 Protein (U) [Mass/Vol] Negative Negative [facility] Protein [Mass/volume] in Ser um or PlasmaOrdered By: Gabino Parker on 05-30-2023 Protein [Mass/Vol] 7.2 g/dL Normal 6.4-8.9 [facility] Comment on above: Performed By: #### H EPATIC, MG, LIPASE, CMP, CBC #### [address] Serum globulin measurement b y calculation (mass/volume)Ordered By: Gabino Parker on 05-30-2023 Globulin (S) [Mass/Vol] 3.1 g/dL Normal [facility] Comment on above: Performed By: #### H EPATIC, MG, LIPASE, CMP, CBC #### [facility] [address] [place] [address] Serum or plasma albumin/glob ulin mass ratioOrdered By: Gabino Parker on 05-30-2023 Albumin/Globulin [Mass ratio] 1.3 {ratio} [facility] Comment on above: Performed By: #### H EPATIC, MG, LIPASE, CMP, CBC #### [facility] [address] [place] [address] Serum or plasma anion gap de terminationOrdered By: Gabino Parker on 05-30-2023 Anion gap [Moles/Vol] 12.3 mmol/L Normal 6.0-15.0 [facility] Comment on above: Performed By: #### H EPATIC, MG, LIPASE, CMP, CBC #### [facility] [address] [place] [address] Serum or plasma non-glucuron idated bilirubin measurement (mass/volume)Ordered By: Gabino Parker on 05-30-2023 Bilirubin.indirect [Mass/Vol] 0.3 mg/dL [facility] Sodium [Moles/volume] in Ser um or PlasmaOrdered By: Gabino Parker on 05-30-2023 Sodium [Moles/Vol] 139 mmol/L Normal 136-145 [facility] Comment on above: Performed By: #### H EPATIC, MG, LIPASE, CMP, CBC #### [facility] [address] [place] [address] Specific gravity Auto test s trip (U) [Rel density]Ordered By: Gabino Parker on 05-30-2023 Specific gravity (U) [Rel density] 1.011 1.001-1.030 [facility] Squamous epithelial cells de tection in urine sediment by light microscopyOrdered By: Gabino Parker on 05-30-2023 Epithelial cells.squamous LM Ql (Urine sed) 0-1 [HPF] 0-2 [facility] Urea nitrogen [Mass/volume] in Serum or PlasmaOrdered By: Gabino Parker on 05-30-2023 Urea nitrogen [Mass/Vol] 6 mg/dL Low 7-25 [facility] Comment on above: Performed By: #### H EPATIC, MG, LIPASE, CMP, CBC #### [address] Urine Cultureon 05-30-2023 Bacteria identified Cx Nom (U) 75,000 colonies/ml mixed bacterial skin contaminants 2 Days PERFORMED BY: [place] [address] PATHOLOGIST AUTO WINDER BAUTISTA BAKER M.D. Normal [facility] Comment on above: Performed By: #### A DDONUAPLUS, UHCG, CUU #### [address] Urine bacteria detection by automated methodOrdered By: Gabino Parker on 05-30-2023 Bacteria Auto Ql (U) None seen None Seen [facility] Urine clarity by refractomet ry automatedOrdered By: Gabino Parker on 05-30-2023 Clarity Refractometry automated (U) Clear Clear [facility] Urine culture routineOrdered By: Gabino Parker on 05-30-2023 Bacteria identified Cx Nom (U) 2 Days [facility] Urine glucose measurement by automated test strip (mass/volume)Ordered By: Gabino Parker on 05-30-2023 Glucose Auto test strip (U) [Mass/Vol] Normal mg/dL Normal [facility] Urine hemoglobin detection b y automated test stripOrdered By: Gabino Parker on 05-30-2023 Hemoglobin Auto test strip Ql (U) Negative Negative [facility] Urine leukocyte esterase det ection by automated test stripOrdered By: Gabino Parker on 05-30-2023 Leukocyte esterase Auto test strip Ql (U) 1+ High Negative [facility] Urine pH measurement by auto mated test stripOrdered By: Gabino Parker on 05-30-2023 pH (U) [pH] Normal 5.0-9.0 [facility] Comment on above: Order Comment: Name Collection Type:: Clean-Voided Midstream Performed By: #### A DDONUAPLUS, UHCG, CUU #### [facility] [address] Urobilinogen Auto test strip (U) [Mass/Vol]Ordered By: Gabino Parker on 05-30-2023 Urobilinogen (U) [Mass/Vol] Normal mg/dL Normal [facility] Basic metabolic 2000 panelon 05-28-2023 Anion gap [Moles/Vol] 10 mmol/L Normal 9-18 [facility] Comment on above: Order Comment: Speci men Type: BLOOD SPECIMENOrdering Facility: [facility] Address: [address] [place] [address] Performed By: #### 1 9123-9, 2777-1, 52986-1 ####[facility]ORY[facility] [id number] [place] [address] [place] Calcium [Mass/Vol] 8.5 mg/dL Normal 8.5-10.2 [facility] Comment on above: Order Comment: Speci men Type: BLOOD SPECIMENOrdering Facility: [facility] Address: [address] [place] [address] Performed By: #### 1 9123-9, 2777-1, 23058-5 ####[facility]ORYCLIA [id number] [place] [address] [place] Chloride [Moles/Vol] 105 mmol/L Normal 97-105 [facility] Comment on above: Order Comment: Speci men Type: BLOOD SPECIMENOrdering Facility: [facility] Address: [address] [place] [address] Performed By: #### 1 9123-9, 2777-1, 53337-1 ####[facility]ORYCL[facility] [id number] [place] [id number] [place] CO2 [Moles/Vol] 24 mmol/L Normal 22-30 [facility] Comment on above: Order Comment: Speci men Type: BLOOD SPECIMENOrdering Facility: [facility] Address: [address] [place] [address] Performed By: #### 1 9123-9, 2777-, 04633-7 ####[facility]ORYCL[facility] [id number] [place] [address] [place] Creatinine [Mass/Vol] 0.52 mg/dL Low 0.58-0.96 [facility] Comment on above: Order Comment: Speci men Type: BLOOD SPECIMENOrdering Facility: [facility] Address: [address] [place] [address] Performed By: #### 1 9123-9, 2777-, 11218-0 ####[facility]ORYCLIA [id number] [place] [address] [facility] Creatinine and Glomerular filtration rate.predicted panel (S/P/Bld) 125 mL/min/1.73m??? Normal >=60 [facility] Comment on above: Order Comment: Speci men Type: BLOOD SPECIMENOrdering Facility: [facility] Address: [address] [place] [address] Result Comment: Jessica mated Glomerular Filtration Rate [...] actual GFR. Performed By: #### 1 9123-9, 2777-, 18391-7 ####[facility]ORYCLIA [id number] [place] [address] [place] Glucose [Mass/Vol] 77 mg/dL Normal 74-99 [facility] Comment on above: Order Comment: [facility] Type: BLOOD SPECIMENOrdering Facility: [facility] Address: [address] [place] [address] Result Comment: The [place] [employer] (ADA) provides guidance for cutoff [...] Standards of Medical Care in Diabetes 2016, [place] [employer]. Diabetes Care. 2016.39(Suppl 1). Performed By: #### 1 9123-9, 27708-15, 02839-1 ####[facility]ORYCLIA [id number] [place] [address] [place] Potassium [Moles/Vol] 4.2 mmol/L Normal 3.7-5.1 [facility] Comment on above: Order Comment: [facility] Type: BLOOD SPECIMENOrdering Facility: [facility] Address: [address] [place] [id number] Performed By: #### 1 9123-9, 2777, 56636-7 ####[facility]ORYCLIA [id number] [place] [address] [place] Sodium [Moles/Vol] 139 mmol/L Normal 136-144 [facility] Comment on above: Order Comment: Speci men Type: BLOOD SPECIMENOrdering Facility: [facility] Address: [address] [place] [address] Performed By: #### 1 9123-9, 2777-1, 79231-9 ####[facility]ORYCLIA [id number] [place] [address] [place] Urea nitrogen [Mass/Vol] 8 mg/dL Normal 7-21 [facility] Comment on above: Order Comment: Speci men Type: BLOOD SPECIMENOrdering Facility: [facility] Address: [address] [place] [address] Performed By: #### 1 9123-9, 2777-, 07586-5 ####[facility]ORATORYCLIA [id number] [place] [address] [place] CBC panel Auto (Bld)on 05-27 Erythrocyte distribution width (RBC) [Ratio] 13.7 % Normal 11.5-15.0 [facility] Comment on above: Order Comment: Speci men Type: BLOOD SPECIMENOrdering Facility: [facility] Address: [address] [place] [address] Performed By: #### 5 8410-2 ####[facility]ORATORYCLIA [id number] [place] [address] [place] Hematocrit (Bld) [Volume fraction] 31.5 % Low 36.0-46.0 [facility] Comment on above: Order Comment: Speci men Type: BLOOD SPECIMENOrdering Facility: [facility] Address: [address] [place] [address] Performed By: #### 5 8410-2 ####[facility]ORATORYCLIA [id number] [place] [address] [place] Hemoglobin (Bld) [Mass/Vol] 11.1 g/dL Low 11.5-15.5 [facility] Comment on above: Order Comment: Speci men Type: BLOOD SPECIMENOrdering Facility: [facility] Address: [address] [place] [address] Performed By: #### 5 8410-2 ####[facility] LABORATORYCLIA [id number] [address] [place] [facility] MCH (RBC) [Entitic mass] 31.4 pg Normal 26.0-34.0 [facility] Comment on above: Order Comment: Speci men Type: BLOOD SPECIMENOrdering Facility: [facility] Address: [address] [place] [address] Performed By: #### 5 8410-2 ####[facility] LABORATORYCLIA [id number] [place] [id number] [place] MCHC (RBC) [Mass/Vol] 35.2 g/dL Normal 30.5-36.0 [facility] Comment on above: Order Comment: Speci men Type: BLOOD SPECIMENOrdering Facility: [facility] Address: [address] [place] [address] Performed By: #### 5 8410-2 ####[facility] LABORATORYCLIA [id number] [address] [place] MCV (RBC) [Entitic vol] 89.2 fL Normal 80.0-100.0 [facility] Comment on above: Order Comment: Speci men Type: BLOOD SPECIMENOrdering Facility: [facility] Address: [address] [place] [address] Performed By: #### 5 8410-2 ####[facility] LABORATORYCLIA [id number] [address] Nucleated RBC (Bld) [#/Vol] 10*3/uL Normal <0.01 [facility] Comment on above: Order Comment: Speci men Type: BLOOD SPECIMENOrdering Facility: [facility] Address: [address] [place] [address] Performed By: #### 5 8410-2 ####[facility] LABORATORYCLIA [id number] [address] [place] Platelet mean volume (Bld) [Entitic vol] 11.8 fL Normal 9.0-12.7 [facility] Comment on above: Order Comment: Speci men Type: BLOOD SPECIMENOrdering Facility: [facility] Address: [address] [place] [address] Performed By: #### 5 8410-2 ####[facility] LABORATORYCLIA [id number] [place] [id number] [place] Platelets (Bld) [#/Vol] 199 10*3/uL Normal 150-400 [facility] Comment on above: Order Comment: Speci men Type: BLOOD SPECIMENOrdering Facility: [facility] Address: [address] [place] [address] Performed By: #### 5 8410-2 ####[facility] LABORATORYCLIA [id number] [place] [id number] [place] RBC (Bld) [#/Vol] 3.53 10*6/uL Low 3.90-5.20 [facility] Comment on above: Order Comment: Speci men Type: BLOOD SPECIMENOrdering Facility: [facility] Address: [address] [place] [address] Performed By: #### 5 8410-2 ####[facility] LABORATORYCLIA [id number] [place] [id number] [place] WBC (Bld) [#/Vol] 6.24 10*3/uL Normal 3.70-11.00 [facility] Comment on above: Order Comment: Speci men Type: BLOOD SPECIMENOrdering Facility: [facility] Address: [address] [place] [address] Performed By: #### 5 8410-2 ####[facility] LABORATORYCLIA [id number] [place] [id number] [place] CNCOon 05-28-2023 CNCO Letter Text Normal [facility] CNDSon 05-28-2023 CNDS Normal [facility] CNPNon 05-28-2023 CNPN Normal [facility] Magnesium SerPl-mCncon 05-27 Magnesium [Mass/Vol] 1.9 mg/dL Normal 1.7-2.3 [facility] Comment on above: Order Comment: Speci men Type: BLOOD SPECIMENOrdering Facility: [facility] Address: [address] [place] [address] Performed By: #### 1 9123-9, 2776-02, ####[facility] LABORATORYCLIA [id number] [place] [address] [place] NURSING PROGon 05-28-2023 NURSING PROG Normal [facility] Phosphate SerPl-mCncon 05-27 Phosphate [Mass/Vol] 2.3 mg/dL Low 2.7-4.8 [facility] Comment on above: Order Comment: Speci men Type: BLOOD SPECIMENOrdering Facility: [facility] Address: [address] [place] [address] Performed By: #### 1 9123-9, 2776-02, ####[facility] LABORATORYCLIA [id number] [place] [id number] [facility] [place] Basic metabolic 2000 panelon 05-27-2023 Anion gap [Moles/Vol] 10 mmol/L Normal 9-18 [facility] Comment on above: Order Comment: Speci men Type: BLOOD SPECIMENOrdering Facility: [facility] Address: [address] [place] [address] Performed By: #### 2 777-1, 40103-0, ####[facility] LABORATORYCLIA [id number] [place] [id number] [place] Calcium [Mass/Vol] 8.9 mg/dL Normal 8.5-10.2 [facility] Comment on above: Order Comment: Speci men Type: BLOOD SPECIMENOrdering Facility: [facility] Address: [address] [place] [address] Performed By: #### 2 777-1, 07187-4, ####[facility] LABORATORYCLIA [id number] [place] [id number] [place] Chloride [Moles/Vol] 104 mmol/L Normal 97-105 [facility] Comment on above: Order Comment: Speci men Type: BLOOD SPECIMENOrdering Facility: [facility] Address: [address] [place] [address] Performed By: #### 2 777-1, 57337-9, ####[facility] LABORATORYCLIA [id number] [place] [id number] [place] CO2 [Moles/Vol] 25 mmol/L Normal 22-30 [facility] Comment on above: Order Comment: Speci men Type: BLOOD SPECIMENOrdering Facility: [facility] Address: [address] [place] [address] Performed By: #### 2 777-1, 19588-4, ####[facility] LABORATORYCLIA [id number] [place] [id number] [place] Creatinine [Mass/Vol] 0.57 mg/dL Low 0.58-0.96 [facility] Comment on above: Order Comment: Lyssai men Type: BLOOD SPECIMENOrdering Facility: [facility] Address: [address] [place] [address] Performed By: #### 2 777-1, 40375-0, ####[facility] LABORATORYCLIA [id number] [place] [id number] [place] [facility] Creatinine and Glomerular filtration rate.predicted panel (S/P/Bld) 122 mL/min/1.73m??? Normal >=60 [facility] Comment on above: Order Comment: Geraldo marrero Type: BLOOD SPECIMENOrdering Facility: [facility] Address: [address] [place] [address] Result Comment: Jessica mated Glomerular Filtration Rate [...] actual GFR. Performed By: #### 2 777-1, 77620-2, ####[facility] LABORATORYCLIA [id number] [place] [id number] [place] Glucose [Mass/Vol] 101 mg/dL High 74-99 [facility] Comment on above: Order Comment: Speci men Type: BLOOD SPECIMENOrdering Facility: [facility] Address: [address] [place] [address] Result Comment: The [place] [employer] (ADA) provides guidance for cutoff [...] Standards of Medical Care in Diabetes 2016, [place] [employer]. Diabetes Care. 2016.39(Suppl 1). Performed By: #### 2 777-1, 31206-0, ####OS[facility] LABORATORYCLIA [id number] [place] [address] [place] Potassium [Moles/Vol] 4.0 mmol/L Normal 3.7-5.1 [facility] Comment on above: Order Comment: Speci men Type: BLOOD SPECIMENOrdering Facility: [facility] Address: [address] [place] [address] Performed By: #### 2 777-1, , ####[facility] LABORATORYCLIA [id number] [place] [id number] [place] Sodium [Moles/Vol] 139 mmol/L Normal 136-144 [facility] Comment on above: Order Comment: Speci men Type: BLOOD SPECIMENOrdering Facility: [facility] Address: [address] [place] [address] Performed By: #### 2 777-1, , ####[facility] LABORATORYCLIA [id number] [place] [id number] [place] Urea nitrogen [Mass/Vol] 6 mg/dL Low 7-21 [facility] Comment on above: Order Comment: Speci men Type: BLOOD SPECIMENOrdering Facility: [facility] Address: [address] [place] [address] Performed By: #### 2 777-1, 82721-7, 82219-1 ####[facility] LABORATORYCLIA [id number] [place] [id number] [place] CASE MANAGEMon 05-27-2023 CASE MANAGEM Normal [facility] CBC panel Auto (Bld)on 05-26 Erythrocyte distribution width (RBC) [Ratio] 13.5 % Normal 11.5-15.0 [facility] Comment on above: Order Comment: Speci men Type: BLOOD SPECIMENOrdering Facility: [facility] Address: [address] [place] [address] Performed By: #### 5 8410-2 ####[facility] LABORATORYCLIA [id number] [address] Hematocrit (Bld) [Volume fraction] 36.5 % Normal 36.0-46.0 [facility] Comment on above: Order Comment: Speci men Type: BLOOD SPECIMENOrdering Facility: [facility] Address: [address] [place] [address] Performed By: #### 5 8410-2 ####[facility] LABORATORYCLIA [id number] [address] [place] Hemoglobin (Bld) [Mass/Vol] 12.8 g/dL Normal 11.5-15.5 [facility] Comment on above: Order Comment: Speci men Type: BLOOD SPECIMENOrdering Facility: [facility] Address: [address] [place] [address] Performed By: #### 5 8410-2 ####[facility] LABORATORYCLIA [id number] [place] [id number] [place] MCH (RBC) [Entitic mass] 30.9 pg Normal 26.0-34.0 [facility] Comment on above: Order Comment: Speci men Type: BLOOD SPECIMENOrdering Facility: [facility] Address: [address] [place] [address] Performed By: #### 5 8410-2 ####[facility] LABORATORYCLIA [id number] [place] [id number] [place] MCHC (RBC) [Mass/Vol] 35.1 g/dL Normal 30.5-36.0 [facility] Comment on above: Order Comment: Speci men Type: BLOOD SPECIMENOrdering Facility: [facility] Address: [address] [place] [address] Performed By: #### 5 8410-2 ####[facility] LABORATORYCLIA [id number] [place] [id number] [place] MCV (RBC) [Entitic vol] 88.2 fL Normal 80.0-100.0 [facility] Comment on above: Order Comment: Speci men Type: BLOOD SPECIMENOrdering Facility: [facility] Address: [address] [place] [address] Performed By: #### 5 8410-2 ####[facility] LABORATORYCLIA [id number] [place] [address] [place] Nucleated RBC (Bld) [#/Vol] 10*3/uL Normal <0.01 [facility] Comment on above: Order Comment: Speci men Type: BLOOD SPECIMENOrdering Facility: [facility] Address: [address] [place] [address] Performed By: #### 5 8410-2 ####[facility] LABORATORYCLIA [id number] [place] [address] [place] Platelet mean volume (Bld) [Entitic vol] 11.5 fL Normal 9.0-12.7 [facility] Comment on above: Order Comment: Speci men Type: BLOOD SPECIMENOrdering Facility: [facility] Address: [address] [place] [address] Performed By: #### 5 8410-2 ####[facility] LABORATORYCLIA [id number] [place] [id number] [place] Platelets (Bld) [#/Vol] 205 10*3/uL Normal 150-400 [facility] Comment on above: Order Comment: Speci men Type: BLOOD SPECIMENOrdering Facility: [facility] Address: [address] [place] [address] Performed By: #### 5 8410-2 ####[facility] LABORATORYCLIA [id number] [place] [id number] [place] RBC (Bld) [#/Vol] 4.14 10*6/uL Normal 3.90-5.20 [facility] Comment on above: Order Comment: Speci men Type: BLOOD SPECIMENOrdering Facility: [facility] Address: [address] [place] [address] Performed By: #### 5 8410-2 ####[facility] LABORATORYCLIA [id number] [place] [id number] [place] WBC (Bld) [#/Vol] 6.24 10*3/uL Normal 3.70-11.00 [facility] Comment on above: Order Comment: Speci men Type: BLOOD SPECIMENOrdering Facility: [facility] Address: [address] [place] [address] Performed By: #### 5 8410-2 ####[facility] LABORATORYCLIA [id number] [place] [id number] [place] Magnesium SerPl-mCncon 05-26 Magnesium [Mass/Vol] 1.8 mg/dL Normal 1.7-2.3 [facility] Comment on above: Order Comment: Speci men Type: BLOOD SPECIMENOrdering Facility: [facility] Address: [address] [place] [address] Performed By: #### 2 777-1, 05707-1, ####[facility] LABORATORYCLIA [id number] [place] [id number] [place] NURSING PROGon 05-27-2023 NURSING PROG Normal [facility] NUTRITIONon 05-27-2023 NUTRITION Normal [facility] Phosphate SerPl-mCncon 05-26 Phosphate [Mass/Vol] 2.4 mg/dL Low 2.7-4.8 [facility] Comment on above: Order Comment: Speci men Type: BLOOD SPECIMENOrdering Facility: [facility] Address: [address] [place] [address] Performed By: #### 2 777-1, 17403-8, ####[facility] LABORATORYCLIA [id number] [place] [address] [place] ALLIED HEALTHon 05-26-2023 ALLIED HEALTH Normal [facility] Basic metabolic 2000 panelon 05-26-2023 Anion gap [Moles/Vol] 13 mmol/L Normal 9-18 [facility] Comment on above: Order Comment: Speci men Type: BLOOD SPECIMENOrdering Facility: [facility] Address: [address] [place] [address] Performed By: #### 2 4321-2, , 2776-02 ####[facility] LABORATORYCLIA [id number] [place] [id number] [place] Calcium [Mass/Vol] 9.0 mg/dL Normal 8.5-10.2 [facility] Comment on above: Order Comment: Speci men Type: BLOOD SPECIMENOrdering Facility: [facility] Address: [address] [place] [address] Performed By: #### 2 4321-2, , 2776-02 ####[facility] LABORATORYCLIA [id number] [place] [id number] [place] Chloride [Moles/Vol] 103 mmol/L Normal 97-105 [facility] Comment on above: Order Comment: Speci men Type: BLOOD SPECIMENOrdering Facility: [facility] Address: [address] [place] [address] Performed By: #### 2 4321-2, , 2776-02 ####[facility] LABORATORYCLIA [id number] [place] [id number] [place] CO2 [Moles/Vol] 20 mmol/L Low 22-30 [facility] Comment on above: Order Comment: Speci men Type: BLOOD SPECIMENOrdering Facility: [facility] Address: [address] [place] [address] Performed By: #### 2 4321-2, , 2776-02 ####[facility] LABORATORYCLIA [id number] [place] [id number] [place] Creatinine [Mass/Vol] 0.68 mg/dL Normal 0.58-0.96 [facility] Comment on above: Order Comment: Geraldo marrero Type: BLOOD SPECIMENOrdering Facility: [facility] Address: [address] [place] [address] Performed By: #### 2 4321-2, 47544-7, 2776-02 ####[facility] LABORATORYCLIA [id number] [place] [id number] [place] Creatinine and Glomerular filtration rate.predicted panel (S/P/Bld) 117 mL/min/1.73m??? Normal >=60 [facility] Comment on above: Order Comment: Geraldo marrero Type: BLOOD SPECIMENOrdering Facility: [facility] Address: [address] [place] [address] Result Comment: Jessica mated Glomerular Filtration Rate [...] Performed By: #### 2 4321-2, , 2776-02 ####[facility] LABORATORYCLIA [id number] [place] [id number] [place] Glucose [Mass/Vol] 71 mg/dL Low 74-99 [facility] Comment on above: Order Comment: Geraldo marrero Type: BLOOD SPECIMENOrdering Facility: [facility] Address: [address] [place] [address] Result Comment: The [place] Diabetes [employer] (ADA) provides guidance for cutoff [...] Standards of Medical Care in Diabetes 2016, [place] [employer]. Diabetes Care. 2016.39(Suppl 1). Performed By: #### 2 4321-2, 32027-5, 2776-02 ####[facility] LABORATORYCLIA [id number] [place] [id number] [place] Potassium [Moles/Vol] 4.3 mmol/L Normal 3.7-5.1 [facility] Comment on above: Order Comment: Speci men Type: BLOOD SPECIMENOrdering Facility: [facility] Address: [address] [place] [address] Performed By: #### 2 4321-2, , 2776-02 ####[facility] LABORATORYCLIA [id number] [place] [id number] [place] Sodium [Moles/Vol] 136 mmol/L Normal 136-144 [facility] Comment on above: Order Comment: Speci men Type: BLOOD SPECIMENOrdering Facility: [facility] Address: [address] [place] [address] Performed By: #### 2 4321-2, , 2776-02 ####[facility] LABORATORYCLIA [id number] [place] [id number] [place] Urea nitrogen [Mass/Vol] 10 mg/dL Normal 7-21 [facility] Comment on above: Order Comment: Speci men Type: BLOOD SPECIMENOrdering Facility: [facility] Address: [address] [place] [address] Performed By: #### 2 4321-2, , 2776-02 ####[facility] LABORATORYCLIA [id number] [place] [id number] [place] CASE MGT INIT ASSESon 2023 CASE MGT INIT ASSES Normal [facility] CBC panel Auto (Bld)on 05-25 Erythrocyte distribution width (RBC) [Ratio] 13.3 % Normal 11.5-15.0 [facility] Comment on above: Order Comment: Speci men Type: BLOOD SPECIMENOrdering Facility: [facility] Address: [facility] [place] [address] Performed By: #### 5 8410-2 ####[facility] LABORATORYCLIA [id number] [place] [address] [facility] [place] Hematocrit (Bld) [Volume fraction] 33.8 % Low 36.0-46.0 [facility] Comment on above: Order Comment: Speci men Type: BLOOD SPECIMENOrdering Facility: [facility] Address: [address] [place] [address] Performed By: #### 5 8410-2 ####[facility] LABORATORYCLIA [id number] [place] [address] [place] Hemoglobin (Bld) [Mass/Vol] 11.5 g/dL Normal 11.5-15.5 [facility] Comment on above: Order Comment: Speci men Type: BLOOD SPECIMENOrdering Facility: [facility] Address: [address] [place] [address] Performed By: #### 5 8410-2 ####[facility] LABORATORYCLIA [id number] [place] [address] [place] MCH (RBC) [Entitic mass] 30.5 pg Normal 26.0-34.0 [facility] Comment on above: Order Comment: Speci men Type: BLOOD SPECIMENOrdering Facility: [facility] Address: [address] [place] [address] Performed By: #### 5 8410-2 ####[facility] LABORATORYCLIA [id number] [place] [address] [place] MCHC (RBC) [Mass/Vol] 34.0 g/dL Normal 30.5-36.0 [facility] Comment on above: Order Comment: Speci men Type: BLOOD SPECIMENOrdering Facility: [facility] Address: [address] [place] [address] Performed By: #### 5 8410-2 ####[facility] LABORATORYCLIA [id number] [address] [place] MCV (RBC) [Entitic vol] 89.7 fL Normal 80.0-100.0 [facility] Comment on above: Order Comment: Speci men Type: BLOOD SPECIMENOrdering Facility: [facility] Address: [address] [place] [address] Performed By: #### 5 8410-2 ####[facility] LABORATORYCLIA [id number] [place] [id number] [place] Nucleated RBC (Bld) [#/Vol] 10*3/uL Normal <0.01 [facility] Comment on above: Order Comment: Speci men Type: BLOOD SPECIMENOrdering Facility: [facility] Address: [address] [place] [address] Performed By: #### 5 8410-2 ####[facility] LABORATORYCLIA [id number] [place] [id number] [place] Platelet mean volume (Bld) [Entitic vol] 11.7 fL Normal 9.0-12.7 [facility] Comment on above: Order Comment: Speci men Type: BLOOD SPECIMENOrdering Facility: [facility] Address: [address] [place] [address] Performed By: #### 5 8410-2 ####[facility] LABORATORYCLIA [id number] [place] [address] [place] Platelets (Bld) [#/Vol] 181 10*3/uL Normal 150-400 [facility] Comment on above: Order Comment: Speci men Type: BLOOD SPECIMENOrdering Facility: [facility] Address: [address] [place] [address] Performed By: #### 5 8410-2 ####[facility] LABORATORYCLIA [id number] [place] [id number] [place] RBC (Bld) [#/Vol] 3.77 10*6/uL Low 3.90-5.20 [facility] Comment on above: Order Comment: Speci men Type: BLOOD SPECIMENOrdering Facility: [facility] Address: [address] [place] [address] Performed By: #### 5 8410-2 ####[facility] LABORATORYCLIA [id number] [place] [id number] [place] WBC (Bld) [#/Vol] 5.34 10*3/uL Normal 3.70-11.00 [facility] Comment on above: Order Comment: Speci men Type: BLOOD SPECIMENOrdering Facility: [facility] Address: [address] [place] [address] Performed By: #### 5 8410-2 ####[facility] LABORATORYCLIA [id number] [place] [id number] [facility] Magnesium SerPl-ncon 05-25 Magnesium [Mass/Vol] 1.6 mg/dL Low 1.7-2.3 [facility] Comment on above: Order Comment: Speci men Type: BLOOD SPECIMENOrdering Facility: [facility] Address: [address] [place] [address] Performed By: #### 2 4321-2, 30780-8, 2777-1 ####[facility] LABORATORYCLIA [id number] [place] [id number] [place] NUTRITIONon 05-26-2023 NUTRITION Normal [facility] Phosphate SerPl-ncon 05-25 Phosphate [Mass/Vol] 4.5 mg/dL Normal 2.7-4.8 [facility] Comment on above: Order Comment: Speci men Type: BLOOD SPECIMENOrdering Facility: [facility] Address: [address] [place], [place] [address] Performed By: #### 2 4321-2, 56004-1, 2777-1 ####[facility] LABORATORYCLIA [id number] [place] [id number] [facility] [place] XR ABDOMEN 1V SUPINEon 05-25 XR ABDOMEN 1V SUPINE Normal [facility] ANES POSTPROC EVALon 024 ANES POSTPROC EVAL Normal [facility] ANES PRE-OPon 05-25-2023 ANES PRE-OP [facility] HISTORY PHYSICALon 4 HISTORY PHYSICAL Normal [facility] NURSING PROGon 05-25-2023 NURSING PROG Normal [facility] NURSING PROG Normal [facility] Upper GI endoscopyon 024 Upper GI endoscopy Normal [facility] CNPNon 05-24-2023 CNPN Normal [facility] Home Health Recordson 2023 Home Health Records [id number] Normal [facility] Basic metabolic 2000 panelon 05-22-2023 Anion gap [Moles/Vol] 10 mmol/L Normal 9-18 [facility] Comment on above: Order Comment: Speci men Type: BLOOD SPECIMENOrdering Facility: [facility] Address: [address] [place] [address] Performed By: #### 2 4321-2, , 2776-02 ####[facility] LABORATORYCLIA [id number] [place] [id number] [place] Calcium [Mass/Vol] 8.9 mg/dL Normal 8.5-10.2 [facility] Comment on above: Order Comment: Speci men Type: BLOOD SPECIMENOrdering Facility: [facility] Address: [address] [place] [address] Performed By: #### 2 4321-2, , 2776-02 ####[facility]ORATORYCLIA [id number] [place] [id number] [place] Chloride [Moles/Vol] 110 mmol/L High 97-105 [facility] Comment on above: Order Comment: Speci men Type: BLOOD SPECIMENOrdering Facility: [facility] Address: [address] [place] [address] Performed By: #### 2 4321-2, , 2776-02 ####[facility] LABORATORYCLIA [id number] [place] [address] [place] CO2 [Moles/Vol] 23 mmol/L Normal 22-30 [facility] Comment on above: Order Comment: Speci men Type: BLOOD SPECIMENOrdering Facility: [facility] Address: [address] [place] [address] Performed By: #### 2 4321-2, , 2776-02 ####[facility] LABORATORYCLIA [id number] [place] [address] [place] Creatinine [Mass/Vol] 0.73 mg/dL Normal 0.58-0.96 [facility] Comment on above: Order Comment: Geraldo marrero Type: BLOOD SPECIMENOrdering Facility: [facility] Address: [address] [place] [address] Performed By: #### 2 4321-2, 76090-6, 2776-02 ####[facility]ORATORYCLIA [id number] [place] [id number] [place] Creatinine and Glomerular filtration rate.predicted panel (S/P/Bld) 111 mL/min/1.73m??? Normal >=60 [facility] Comment on above: Order Comment: Geraldo marrero Type: BLOOD SPECIMENOrdering Facility: [facility] Address: [address] [place] [address] Result Comment: Jessica mated Glomerular Filtration Rate [...] Performed By: #### 2 4321-2, , 2776-02 ####[facility]ORATORYCLIA [id number] [place] [id number] [place] Glucose [Mass/Vol] 73 mg/dL Low 74-99 [facility] Comment on above: Order Comment: Geraldo marrero Type: BLOOD SPECIMENOrdering Facility: [facility] Address: [address] [place] [address] Result Comment: The [place] Diabetes [employer] (ADA) provides guidance for cutoff [...] Standards of Medical Care in Diabetes 2016, [place] [employer]. Diabetes Care. 2016.39(Suppl 1). Performed By: #### 2 4321-2, , 2776-02 ####[facility] LABORATORYCLIA [id number] [place] [id number] [place] Potassium [Moles/Vol] 3.7 mmol/L Normal 3.7-5.1 [facility] Comment on above: Order Comment: Geraldo marrero Type: BLOOD SPECIMENOrdering Facility: [facility] Address: [address] [place] [address] Performed By: #### 2 4321-2, , 2776-02 ####[facility]ORATORYCLIA [id number] [place] [id number] [place] Sodium [Moles/Vol] 143 mmol/L Normal 136-144 [facility] Comment on above: Order Comment: Geraldo marrero Type: BLOOD SPECIMENOrdering Facility: [facility] Address: [address] [place] [address] Performed By: #### 2 4321-2, , 2776-02 ####[facility]ORATORYCLIA [id number] [place] [id number] [place] Urea nitrogen [Mass/Vol] 6 mg/dL Low 7-21 [facility] Comment on above: Order Comment: Geraldo marrero Type: BLOOD SPECIMENOrdering Facility: [facility] Address: [address] [place] [address] Performed By: #### 2 4321-2, , 2776-02 ####[facility]ORATORYCLIA [id number] [place] [id number] [place] CASE MANAGEMon 05-22-2023 CASE MANAGEM Normal [facility] CNDSon 05-22-2023 CNDS Normal [facility] Magnesium SerPl-mCncon 05-21 Magnesium [Mass/Vol] 1.9 mg/dL Normal 1.7-2.3 [facility] Comment on above: Order Comment: Speci men Type: BLOOD SPECIMENOrdering Facility: [facility] Address: [facility] [place] [address] Performed By: #### 2 4321-2, , 2776-02 ####[facility] LABORATORYCLIA [id number] [place] [address] [place] NUTRITIONon 05-22-2023 NUTRITION Normal [facility] Phosphate SerPl-mCncon 05-21 Phosphate [Mass/Vol] 4.3 mg/dL Normal 2.7-4.8 [facility] Comment on above: Order Comment: Speci men Type: BLOOD SPECIMENOrdering Facility: [facility] Address: [facility] [place] [address] Performed By: #### 2 4321-2, , 2776-02 ####[facility] LABORATORYCLIA [id number] [place] [id number] [place] Basic metabolic 2000 panelon 05-21-2023 Anion gap [Moles/Vol] 12 mmol/L Normal 9-18 [facility] Comment on above: Order Comment: Speci men Type: BLOOD SPECIMENOrdering Facility: [facility] Address: [facility] [place] [id number] Performed By: #### 2 4321-2, , 2776-02 ####[facility] LABORATORYCLIA [id number] [place] [id number] [place] Calcium [Mass/Vol] 8.8 mg/dL Normal 8.5-10.2 [facility] Comment on above: Order Comment: Speci men Type: BLOOD SPECIMENOrdering Facility: [facility] Address: [facility] [place] [address] Performed By: #### 2 4321-2, , 2776-02 ####[facility] LABORATORYCLIA [id number] [place] [address] [place] Chloride [Moles/Vol] 107 mmol/L High 97-105 [facility] Comment on above: Order Comment: Speci men Type: BLOOD SPECIMENOrdering Facility: [facility] Address: [address] [place] [id number] Performed By: #### 2 4321-2, , 2776-02 ####[facility] LABORATORYCLIA [id number] [place] [id number] [place] CO2 [Moles/Vol] 19 mmol/L Low 22-30 [facility] Comment on above: Order Comment: Speci men Type: BLOOD SPECIMENOrdering Facility: [facility] Address: [address] [place] [address] Performed By: #### 2 4321-2, , 2776-02 ####[facility] LABORATORYCLIA [id number] [place] [id number] [place] Creatinine [Mass/Vol] 0.72 mg/dL Normal 0.58-0.96 [facility] Comment on above: Order Comment: Speci men Type: BLOOD SPECIMENOrdering Facility: [facility] Address: [address] [place] [address] Performed By: #### 2 432-2, , 2776-02 ####[facility] LABORATORYCLIA [id number] [place] [id number] [place] Creatinine and Glomerular filtration rate.predicted panel (S/P/Bld) 113 mL/min/1.73m??? Normal >=60 [facility] Comment on above: Order Comment: Speci men Type: BLOOD SPECIMENOrdering Facility: [facility] Address: [address] [place] [address] Result Comment: Jessica mated Glomerular Filtration Rate [...] #### 2 4321-2, , 2776-02 ####[facility] LABORATORYCLIA [id number] [place] [id number] [place] Glucose [Mass/Vol] 85 mg/dL Normal 74-99 [facility] Comment on above: Order Comment: Speci men Type: BLOOD SPECIMENOrdering Facility: [facility] Address: [address] [place] [address] Result Comment: The [place] Diabetes Association (ADA) provides guidance for cutoff [...] Standards of Medical Care in Diabetes 2016, [place] [employer]. Diabetes Care. 2016.39(Suppl 1). Performed By: #### 2 4321-2, , 2776-02 ####[facility]ORATORYCLIA [id number] [place] [id number] [place] Potassium [Moles/Vol] 3.8 mmol/L Normal 3.7-5.1 [facility] Comment on above: Order Comment: Geraldo marrero Type: BLOOD SPECIMENOrdering Facility: [facility] Address: [address] [place] [address] Performed By: #### 2 4321-2, , 2776-02 ####[facility]ORATORYCLIA [id number] [place] [id number] [place] Sodium [Moles/Vol] 138 mmol/L Normal 136-144 [facility] Comment on above: Order Comment: Speci men Type: BLOOD SPECIMENOrdering Facility: [facility] Address: [address] [place], [place] [address] Performed By: #### 2 4321-2, , 2776-02 ####[facility]ORATORYCLIA [id number] [place] [id number] [place] Urea nitrogen [Mass/Vol] 5 mg/dL Low 7-21 [facility] Comment on above: Order Comment: Speci men Type: BLOOD SPECIMENOrdering Facility: [facility] Address: [address] [place], [place] [address] Performed By: #### 2 4321-2, 93779-3, 2776-02 ####[facility]ORATORYCLIA [id number] [place] [address] [facility] [place] CASE MANAGEMon 05-21-2023 CASE MANAGEM Normal [facility] CASE MANAGEM Normal [facility] CASE MGT INIT ASSESon 2023 CASE MGT INIT [facility] Magnesium SerPl-mCncon 05-20 Magnesium [Mass/Vol] 1.9 mg/dL Normal 1.7-2.3 [facility] Comment on above: Order Comment: Speci men Type: BLOOD SPECIMENOrdering Facility: [facility] Address: [address] [place] [address] Performed By: #### 2 4321-2, , 2776-02 ####[facility]ORATORYCLIA [id number] [place] [id number] [place] NURSING PROGon 05-21-2023 NURSING PROG Normal [facility] Phosphate SerPl-mCncon 05-20 Phosphate [Mass/Vol] 4.1 mg/dL Normal 2.7-4.8 [facility] Comment on above: Order Comment: Speci men Type: BLOOD SPECIMENOrdering Facility: [facility] Address: [address] [place], [place] [address] Performed By: #### 2 4321-2, , 2777 ####[facility]ORATORYCLIA [id number] [place] [id number] [place] ALLIED HEALTHon 05-20-2023 ALLIED HEALTH Normal [facility] ANES POSTPROC EVALon 024 ANES POSTPROC EVAL Normal [facility] ANES PRE-OPon 05-20-2023 ANES PRE-OP Normal [facility] Bacteria Ur Culton Bacteria identified Cx Nom (U) ORGANISM ID: 1 10,000 -<50,000 CFU/ml Normal urogenital annika Normal [facility] Comment on above: Performed By: #### 6 30-4 ####[facility] LABCLIA [id number] [facility] [id number] [address] [place] Basic metabolic 2000 panelon 05-20-2023 Anion gap [Moles/Vol] 12 mmol/L Normal 9-18 [facility] Comment on above: Order Comment: Speci men Type: BLOOD SPECIMENOrdering Facility: [facility] Address: [address] [place] [address] Performed By: #### 2 4321-2, , 2776-02 ####[facility] LABORATORYCLIA [id number] [place] [id number] [place] Calcium [Mass/Vol] 8.8 mg/dL Normal 8.5-10.2 [facility] Comment on above: Order Comment: Speci men Type: BLOOD SPECIMENOrdering Facility: [facility] Address: [address] [place] [address] Performed By: #### 2 4321-2, , 2776-02 ####[facility]ORATORYCLIA [id number] [place] [id number] [place] Chloride [Moles/Vol] 109 mmol/L High 97-105 [facility] Comment on above: Order Comment: Speci men Type: BLOOD SPECIMENOrdering Facility: [facility] Address: [address] [place] [address] Performed By: #### 2 4321-2, , 2776-02 ####[facility] LABORATORYCLIA [id number] [place] [address] [place] CO2 [Moles/Vol] 21 mmol/L Low 22-30 [facility] Comment on above: Order Comment: Speci men Type: BLOOD SPECIMENOrdering Facility: [facility] Address: [address] [place] [address] Performed By: #### 2 4321-2, , 2776-02 ####[facility] LABORATORYCLIA [id number] [place] [address] [place] Creatinine [Mass/Vol] 0.75 mg/dL Normal 0.58-0.96 [facility] Comment on above: Order Comment: Geraldo marrero Type: BLOOD SPECIMENOrdering Facility: [facility] Address: [address] [place] [address] Performed By: #### 2 4321-2, , 2776-02 ####[facility]ORATORYCLIA [id number] [place] [id number] [place] [facility] Creatinine and Glomerular filtration rate.predicted panel (S/P/Bld) 107 mL/min/1.73m??? Normal >=60 [facility] Comment on above: Order Comment: Geraldo marrero Type: BLOOD SPECIMENOrdering Facility: [facility] Address: [address] [place] [address] Result Comment: Jessica mated Glomerular Filtration Rate [...] Performed By: #### 2 4321-2, , 2776-02 ####[facility]ORATORYCLIA [id number] [place] [id number] [place] Glucose [Mass/Vol] 91 mg/dL Normal 74-99 [facility] Comment on above: Order Comment: Geraldo marrero Type: BLOOD SPECIMENOrdering Facility: [facility] Address: [address] [place] [address] Result Comment: The [place] Diabetes Association (ADA) provides guidance for cutoff [...] Standards of Medical Care in Diabetes 2016, [place] [employer]. Diabetes Care. 2016.39(Suppl 1). Performed By: #### 2 4321-2, , 2776-02 ####[facility] LABORATORYCLIA [id number] [place] [address] [place] Potassium [Moles/Vol] 4.1 mmol/L Normal 3.7-5.1 [facility] Comment on above: Order Comment: Speci men Type: BLOOD SPECIMENOrdering Facility: [facility] Address: [address] [place] [address] Performed By: #### 2 4321-2, , 2776-02 ####[facility] LABORATORYCLIA [id number] [place] [id number] [place] Sodium [Moles/Vol] 142 mmol/L Normal 136-144 [facility] Comment on above: Order Comment: Speci elida Type: BLOOD SPECIMENOrdering Facility: [facility] Address: [address] [place] [address] Performed By: #### 2 4321-2, , 2776-02 ####[facility] LABORATORYCLIA [id number] [place] [id number] [place] Urea nitrogen [Mass/Vol] 6 mg/dL Low 7-21 [facility] Comment on above: Order Comment: Speci men Type: BLOOD SPECIMENOrdering Facility: [facility] Address: [address] [place] [address] Performed By: #### 2 4321-2, , 2776-02 ####[facility]ORATORYCLIA [id number] [place] [id number] [place] CBC panel Auto (Bld)on 05-19 Erythrocyte distribution width (RBC) [Ratio] 12.9 % Normal 11.5-15.0 [facility] Comment on above: Order Comment: Speci men Type: BLOOD SPECIMENOrdering Facility: [facility] Address: [address] [place] [address] Performed By: #### 5 8410-2 ####[facility] LABORATORYCLIA [id number] [address] [place] Hematocrit (Bld) [Volume fraction] 36.0 % Normal 36.0-46.0 [facility] Comment on above: Order Comment: Speci men Type: BLOOD SPECIMENOrdering Facility: [facility] Address: [address] [place] [address] Performed By: #### 5 8410-2 ####[facility] LABORATORYCLIA [id number] [place] [address] [place] Hemoglobin (Bld) [Mass/Vol] 12.4 g/dL Normal 11.5-15.5 [facility] Comment on above: Order Comment: Speci men Type: BLOOD SPECIMENOrdering Facility: [facility] Address: [address] [place] [address] Performed By: #### 5 8410-2 ####[facility] LABORATORYCLIA [id number] [place] [address] [place] MCH (RBC) [Entitic mass] 30.8 pg Normal 26.0-34.0 [facility] Comment on above: Order Comment: Speci men Type: BLOOD SPECIMENOrdering Facility: [facility] Address: [address] [place] [address] Performed By: #### 5 8410-2 ####[facility] LABORATORYCLIA [id number] [place] [address] [place] MCHC (RBC) [Mass/Vol] 34.4 g/dL Normal 30.5-36.0 [facility] Comment on above: Order Comment: Speci men Type: BLOOD SPECIMENOrdering Facility: [facility] Address: [address] [place] [address] Performed By: #### 5 8410-2 ####[facility] LABORATORYCLIA [id number] [address] [place] MCV (RBC) [Entitic vol] 89.6 fL Normal 80.0-100.0 [facility] Comment on above: Order Comment: Speci men Type: BLOOD SPECIMENOrdering Facility: [facility] Address: [address] [place] [address] Performed By: #### 5 8410-2 ####[facility] LABORATORYCLIA [id number] [place] [id number] [place] Nucleated RBC (Bld) [#/Vol] 10*3/uL Normal <0.01 [facility] Comment on above: Order Comment: Speci men Type: BLOOD SPECIMENOrdering Facility: [facility] Address: [address] [place] [address] Performed By: #### 5 8410-2 ####[facility] LABORATORYCLIA [id number] [place] [id number] [place] Platelet mean volume (Bld) [Entitic vol] 11.4 fL Normal 9.0-12.7 [facility] Comment on above: Order Comment: Speci men Type: BLOOD SPECIMENOrdering Facility: [facility] Address: [address] [place] [address] Performed By: #### 5 8410-2 ####[facility] LABORATORYCLIA [id number] [place] [address] [place] Platelets (Bld) [#/Vol] 176 10*3/uL Normal 150-400 [facility] Comment on above: Order Comment: Speci men Type: BLOOD SPECIMENOrdering Facility: [facility] Address: [address] [place] [address] Performed By: #### 5 8410-2 ####[facility] LABORATORYCLIA [id number] [place] [id number] [place] RBC (Bld) [#/Vol] 4.02 10*6/uL Normal 3.90-5.20 [facility] Comment on above: Order Comment: Speci men Type: BLOOD SPECIMENOrdering Facility: [facility] Address: [address] [place] [address] Performed By: #### 5 8410-2 ####[facility] LABORATORYCLIA [id number] [place] [id number] [place] WBC (Bld) [#/Vol] 2.51 10*3/uL Low 3.70-11.00 [facility] Comment on above: Order Comment: Speci men Type: BLOOD SPECIMENOrdering Facility: [facility] Address: [address] [place] [address] Performed By: #### 5 8410-2 ####[facility]ORATORYCLIA [id number] [place] [id number] [place] HISTORY PHYSICALon HISTORY PHYSICAL Normal [facility] Magnesium SerPl-mCncon 05-19 Magnesium [Mass/Vol] 1.9 mg/dL Normal 1.7-2.3 [facility] Comment on above: Order Comment: Speci men Type: BLOOD SPECIMENOrdering Facility: [facility] Address: [address] [place] [address] Performed By: #### 2 4321-2, , 2776-02 ####[facility]ORATORYCLIA [id number] [place] [address] [place] NURSING PROGon 05-20-2023 NURSING PROG Normal [facility] NURSING PROG Normal [facility] NURSING PROG Normal [facility] NUTRITIONon 05-20-2023 NUTRITION Normal [facility] Phosphate SerPl-mCncon 05-19 Phosphate [Mass/Vol] 3.8 mg/dL Normal 2.7-4.8 [facility] Comment on above: Order Comment: Speci men Type: BLOOD SPECIMENOrdering Facility: [facility] Address: [address] [place] [address] Performed By: #### 2 4321-2, , 2776-02 ####[facility]ORATORYCLIA [id number] [place] [id number] [place] Upper GI endoscopyon 024 Upper GI endoscopy Normal [facility] XR ESOPHAGRAMon 05-20-2023 XR ESOPHAGRAM Normal [facility] Basic metabolic 2000 panelon 05-19-2023 Anion gap [Moles/Vol] 16 mmol/L Normal 9-18 [facility] Comment on above: Order Comment: Speci men Type: BLOOD SPECIMENOrdering Facility: [facility] Address: [address] [place] [address] Performed By: #### 2 4321-2 ####[facility]ORATORYCLIA [id number] [place] [id number] [place] Calcium [Mass/Vol] 8.4 mg/dL Low 8.5-10.2 [facility] Comment on above: Order Comment: Speci men Type: BLOOD SPECIMENOrdering Facility: [facility] Address: [address] [place] [address] Performed By: #### 2 4321-2 ####[facility]ORATORYCLIA [id number] [place] [address] [place] Chloride [Moles/Vol] 104 mmol/L Normal 97-105 [facility] Comment on above: Order Comment: Speci men Type: BLOOD SPECIMENOrdering Facility: [facility] Address: [address] [place] [address] Performed By: #### 2 4321-2 ####[facility]ORATORYCLIA [id number] [place] [address] [place] CO2 [Moles/Vol] 15 mmol/L Low 22-30 [facility] Comment on above: Order Comment: Speci men Type: BLOOD SPECIMENOrdering Facility: [facility] Address: [address] [place] [address] Performed By: #### 2 4321-2 ####[facility]ORATORYCLIA [id number] [place] [id number] [place] Creatinine [Mass/Vol] 0.71 mg/dL Normal 0.58-0.96 [facility] Comment on above: Order Comment: Speci men Type: BLOOD SPECIMENOrdering Facility: [facility] Address: [address] [place] [address] Performed By: #### 2 4321-2 ####[facility]ORATORYCLIA [id number] [place] [address] [place] Creatinine and Glomerular filtration rate.predicted panel (S/P/Bld) 115 mL/min/1.73m??? Normal >=60 [facility] Comment on above: Order Comment: Geraldo marrero Type: BLOOD SPECIMENOrdering Facility: [facility] Address: [address] [place] [address] Result Comment: Jessica mated Glomerular Filtration Rate [...] actual GFR. Performed By: #### 2 4321-2 ####[facility]ORATORYCLIA [id number] [place] [address] [place] Glucose [Mass/Vol] 73 mg/dL Low 74-99 [facility] Comment on above: Order Comment: Geraldo marrero Type: BLOOD SPECIMENOrdering Facility: [facility] Address: [address] [place] [address] Result Comment: The [place] [employer] (ADA) provides guidance for cutoff [...] Standards of Medical Care in Diabetes 2016, [place] [employer]. Diabetes Care. 2016.39(Suppl 1). Performed By: #### 2 4321-2 ####[facility]ORATORYCLIA [id number] [place] [id number] [place] Potassium [Moles/Vol] 4.1 mmol/L Normal 3.7-5.1 [facility] Comment on above: Order Comment: Geraldo marrero Type: BLOOD SPECIMENOrdering Facility: [facility] Address: [address] [place] [address] Performed By: #### 2 4321-2 ####[facility]ORATORYCLIA [id number] [place] [id number] [place] Sodium [Moles/Vol] 135 mmol/L Low 136-144 [facility] Comment on above: Order Comment: Speci men Type: BLOOD SPECIMENOrdering Facility: [facility] Address: [address] [place] [address] Performed By: #### 2 4321-2 ####[facility] LABORATORYCLIA [id number] [place] [id number] [place] Urea nitrogen [Mass/Vol] 8 mg/dL Normal 7-21 [facility] Comment on above: Order Comment: Speci men Type: BLOOD SPECIMENOrdering Facility: [facility] Address: [address] [place] [address] Performed By: #### 2 4321-2 ####[facility] LABORATORYCLIA [id number] [place] [address] [place] CBC panel Auto (Bld)on 05-18 Erythrocyte distribution width (RBC) [Ratio] 12.6 % Normal 11.5-15.0 [facility] Comment on above: Order Comment: Speci men Type: BLOOD SPECIMENOrdering Facility: [facility] Address: [address] [place] [address] Performed By: #### 5 8410-2 ####OSVAL[facility] LABORATORYCLIA [id number] [address] [place] Hematocrit (Bld) [Volume fraction] 33.3 % Low 36.0-46.0 [facility] Comment on above: Order Comment: Speci men Type: BLOOD SPECIMENOrdering Facility: [facility] Address: [address] [place] [address] Performed By: #### 5 8410-2 ####[facility] LABORATORYCLIA [id number] [address] [place] Hemoglobin (Bld) [Mass/Vol] 11.2 g/dL Low 11.5-15.5 [facility] Comment on above: Order Comment: Speci men Type: BLOOD SPECIMENOrdering Facility: [facility] Address: [address] [place] [address] Performed By: #### 5 8410-2 ####[facility] LABORATORYCLIA [id number] [place] [address] [place] MCH (RBC) [Entitic mass] 30.5 pg Normal 26.0-34.0 [facility] Comment on above: Order Comment: Speci men Type: BLOOD SPECIMENOrdering Facility: [facility] Address: [address] [place] [address] Performed By: #### 5 8410-2 ####[facility] LABORATORYCLIA [id number] [address] [place] MCHC (RBC) [Mass/Vol] 33.6 g/dL Normal 30.5-36.0 [facility] Comment on above: Order Comment: Speci men Type: BLOOD SPECIMENOrdering Facility: [facility] Address: [address] [place] [address] Performed By: #### 5 8410-2 ####[facility] LABORATORYCLIA [id number] [address] [place] MCV (RBC) [Entitic vol] 90.7 fL Normal 80.0-100.0 [facility] Comment on above: Order Comment: Speci men Type: BLOOD SPECIMENOrdering Facility: [facility] Address: [address] [place] [address] Performed By: #### 5 8410-2 ####[facility] LABORATORYCLIA [id number] [address] [place] Nucleated RBC (Bld) [#/Vol] 10*3/uL Normal <0.01 [facility] Comment on above: Order Comment: Speci men Type: BLOOD SPECIMENOrdering Facility: [facility] Address: [address] [place] [address] Performed By: #### 5 8410-2 ####[facility] LABORATORYCLIA [id number] [address] [place] Platelet mean volume (Bld) [Entitic vol] 11.4 fL Normal 9.0-12.7 [facility] Comment on above: Order Comment: Speci men Type: BLOOD SPECIMENOrdering Facility: [facility] Address: [address] [place] [address] Performed By: #### 5 8410-2 ####[facility] LABORATORYCLIA [id number] [place] [id number] [place] Platelets (Bld) [#/Vol] 150 10*3/uL Normal 150-400 [facility] Comment on above: Order Comment: Speci men Type: BLOOD SPECIMENOrdering Facility: [facility] Address: [address] [place] [address] Performed By: #### 5 8410-2 ####[facility] LABORATORYCLIA [id number] [place] [id number] [place] RBC (Bld) [#/Vol] 3.67 10*6/uL Low 3.90-5.20 [facility] Comment on above: Order Comment: Speci men Type: BLOOD SPECIMENOrdering Facility: [facility] Address: [address] [place] [address] Performed By: #### 5 8410-2 ####[facility] LABORATORYCLIA [id number] [place] [id number] [place] WBC (Bld) [#/Vol] 3.57 10*3/uL Low 3.70-11.00 [facility] Comment on above: Order Comment: Speci men Type: BLOOD SPECIMENOrdering Facility: [facility] Address: [address] [place] [address] Performed By: #### 5 8410-2 ####[facility] LABORATORYCLIA [id number] [place] [id number] [place] NURSING PROGon 05-19-2023 NURSING PROG Normal [facility] NURSING PROG Normal [facility] NURSING PROG Normal [facility] NUTRITIONon 05-19-2023 NUTRITION Normal [facility] Urinalysis complete panel (U )on 05-19-2023 Bacteria LM.HPF (Urine sed) [#/Area] Few Abnormal None Seen [facility] Comment on above: Order Comment: Speci men Type: URINE SPECIMENOrdering Facility: [facility] Address: [address] [place] [address] Performed By: #### 2 4356-8 ####[facility] LABORATORYCLIA [id number] [place] [address] [place] Bilirubin Ql (U) Negative Normal Negative [facility] Comment on above: Order Comment: Speci men Type: URINE SPECIMENOrdering Facility: [facility] Address: [address] [place] [address] Performed By: #### 2 4356-8 ####[facility] LABORATORYCLIA [id number] [place] [address] [place] Clarity (Unsp spec) Turbid Abnormal Clear [facility] Comment on above: Order Comment: Speci men Type: URINE SPECIMENOrdering Facility: [facility] Address: [address] [place] [address] Performed By: #### 2 4356-8 ####[facility] LABORATORYCLIA [id number] [place] [address] [place] Color (U) Yellow Normal Yellow [facility] Comment on above: Order Comment: Speci men Type: URINE SPECIMENOrdering Facility: [facility] Address: [address] [place] [address] Performed By: #### 2 4356-8 ####[facility] LABORATORYCLIA [id number] [address] [place] Epithelial cells LM.HPF (Urine sed) [#/Area] Moderate Normal [facility] Comment on above: Order Comment: Speci men Type: URINE SPECIMENOrdering Facility: [facility] Address: [address] [place] [address] Performed By: #### 2 4356-8 ####[facility] LABORATORYCLIA [id number] [place] [address] [place] Glucose Test strip (U) [Mass/Vol] Negative Normal Trace, Negative [facility] Comment on above: Order Comment: Speci men Type: URINE SPECIMENOrdering Facility: [facility] Address: [address] [place] [address] Performed By: #### 2 4356-8 ####[facility] LABORATORYCLIA [id number] [place] [address] [place] Hemoglobin Ql (U) Trace Normal Negative, Trace Fa [facility] Comment on above: Order Comment: Speci men Type: URINE SPECIMENOrdering Facility: [facility] Address: [address] [place] [address] Performed By: #### 2 4356-8 ####[facility] LABORATORYCLIA [id number] [place] [address] [place] Ketones Ql (U) 2+ Abnormal Negative, Trace [facility] Comment on above: Order Comment: Speci men Type: URINE SPECIMENOrdering Facility: [facility] Address: [address] [place] [address] Performed By: #### 2 4356-8 ####[facility] LABORATORYCLIA [id number] [address] [place] Leukocyte esterase Test strip Ql (U) 500 Patito/uL Abnormal Negative, 25 Patito/uL [facility] Comment on above: Order Comment: Speci men Type: URINE SPECIMENOrdering Facility: [facility] Address: [address] [place] [address] Performed By: #### 2 4356-8 ####[place] [facility]ORATORYCLIA [id number] [address] [place] Nitrite Ql (U) Negative Normal Negative [facility] Comment on above: Order Comment: Speci men Type: URINE SPECIMENOrdering Facility: [facility] Address: [address] [place] [address] Performed By: #### 2 4356-8 ####[facility]ORATORYCLIA [id number] [place] [address] [place] pH (U) 6.0 [pH] Normal 5.0-8.0 [facility] Comment on above: Order Comment: Speci men Type: URINE SPECIMENOrdering Facility: [facility] Address: [address] [place] [address] Performed By: #### 2 4356-8 ####[facility] LABORATORYCLIA [id number] [place] [address] [place] Protein (U) [Mass/Vol] Negative Normal Trace, Negative [facility] Comment on above: Order Comment: Speci men Type: URINE SPECIMENOrdering Facility: [facility] Address: [address] [place] [address] Performed By: #### 2 4356-8 ####[facility] LABORATORYCLIA [id number] [place] [address] [place] RBC LM.HPF (Urine sed) [#/Area] /[HPF] Abnormal 0-3 /HPF [facility] Comment on above: Order Comment: Speci men Type: URINE SPECIMENOrdering Facility: [facility] Address: [address] [place] [address] Performed By: #### 2 4356-8 ####[facility] LABORATORYCLIA [id number] [place] [address] [place] Specific gravity (U) [Rel density] 1.012 Normal 1.005-1.030 [facility] Comment on above: Order Comment: Speci men Type: URINE SPECIMENOrdering Facility: [facility] Address: [address] [place] [address] Performed By: #### 2 4356-8 ####[facility] LABORATORYCLIA [id number] [address] [place] Urobilinogen Ql (U) Normal Normal Normal [facility] Comment on above: Order Comment: Speci men Type: URINE SPECIMENOrdering Facility: [facility] Address: [address] [place] [address] Performed By: #### 2 4356-8 ####[facility]ORATORYCLIA [id number] [place] [address] [place] WBC LM.HPF (Urine sed) [#/Area] /[HPF] Abnormal 0-5 /HPF [facility] Comment on above: Order Comment: Speci men Type: URINE SPECIMENOrdering Facility: [facility] Address: [address] [place] [address] Performed By: #### 2 4356-8 ####[facility]ORATORYCLIA [id number] [place] [address] [place] .Interpretation:on HCV Ab IA Ql Comment Invalid Interpretation Code [facility] Comment on above: Result Comment: Not infected with HCV unless early or acute infection issuspected (which may be delayed in an immunocompromisedindividual), or other evidence exists to indicate HCV infection.Performed at: [facility]cr[facility] [place], [place] [id number] PhD Cami Neri Performed By: #### 9 [id number], 88454669, 2617812, 1685518, 7491123406, 8484042, 1635407771, 4533766, 22659777 ####[facility] [address] [place] [address] 25(OH)D3 [facility] 2023 25-hydroxyvitamin D3 [Mass/Vol] 36.1 ng/mL Normal 31.0-80.0 [facility] Comment on above: Order Comment: Speci men Type: BLOOD SPECIMENOrdering Facility: [facility] Address: [address] [place] [address] Performed By: #### 1 989-3 ####[facility] LABCLIA [id number] [address] [place] Acute Hepatitis A B C Panelo n 05-18-2023 HAV IgM IA Ql Negative Invalid Interpretation Code Negative [facility] Comment on above: Performed By: #### 9 [id number], 02824752, 7091033, 4899448, 8764870698, 5976069, 7678800375, 5236339, 34776716 ####[facility] [address] [place] [address] HBV core IgM IA Ql Negative Invalid Interpretation Code Negative [facility] Comment on above: Performed By: #### 9 98294424, 81625028, 3572408, 1116792, 0686429610, 2080301, 8950171937, 8899065, 33383210 ####[facility] [address] [place] [address] HBV surface Ag IA Ql Negative Invalid Interpretation Code Negative [facility] Comment on above: Performed By: #### 9 08488416, 96400268, 9534291, 8657682, 4505106809, 5003281, 3807835574, 2795405, 87490356 ####[facility] [address] [place] [address] HCV IgG IA Ql Non-Reactive Invalid Interpretation Code Non Reactive [facility] Comment on above: Result Comment: Perf ormed at: [facility] [address] [place], [place] [id number] PhD Cami Neri Performed By: #### 9 80442541, 70754033, 7631104, 9224701, 0430863670, 0854781, 2154983591, 5006443, 45934656 ####[facility] [address] [place] [address] CBC W Auto Differential pane l (Bld)on 05-18-2023 Basophils (Bld) [#/Vol] 0.03 10*3/uL Normal <0.11 [facility] Comment on above: Order Comment: Speci men Type: BLOOD SPECIMENOrdering Facility: [facility] Address: [address] [place] [address] Performed By: #### 5 7021-8 ####[facility] LABORATORYCLIA [id number] [place] [address] [place] Basophils/100 WBC (Bld) 0.6 % Normal [facility] Comment on above: Order Comment: Speci men Type: BLOOD SPECIMENOrdering Facility: [facility] Address: [address] [place] [address] Performed By: #### 5 7021-8 ####[facility] LABORATORYCLIA [id number] [place] [address] [place] Differential cell count method Nom (Bld) Auto Normal [facility] Comment on above: Order Comment: Speci men Type: BLOOD SPECIMENOrdering Facility: [facility] Address: [address] [place] [address] Performed By: #### 5 7021-8 ####[facility] LABORATORYCLIA [id number] [place] [id number] [place] Eosinophils (Bld) [#/Vol] 0.06 10*3/uL Normal <0.46 [facility] Comment on above: Order Comment: Speci men Type: BLOOD SPECIMENOrdering Facility: [facility] Address: [address] [place] [address] Performed By: #### 5 7021-8 ####[facility] LABORATORYCLIA [id number] [place] [address] [place] Eosinophils/100 WBC (Bld) 1.3 % Normal [facility] Comment on above: Order Comment: Speci men Type: BLOOD SPECIMENOrdering Facility: [facility] Address: [address] [place] [address] Performed By: #### 5 7021-8 ####[facility] LABORATORYCLIA [id number] [place] [address] [place] Erythrocyte distribution width (RBC) [Ratio] 13.1 % Normal 11.5-15.0 [facility] Comment on above: Order Comment: Speci men Type: BLOOD SPECIMENOrdering Facility: [facility] Address: [address] [place] [address] Performed By: #### 5 7021-8 ####[facility] LABORATORYCLIA [id number] [place] [id number] [place] Hematocrit (Bld) [Volume fraction] 43.5 % Normal 36.0-46.0 [facility] Comment on above: Order Comment: Speci men Type: BLOOD SPECIMENOrdering Facility: [facility] Address: [address] [place] [address] Performed By: #### 5 7021-8 ####[facility] LABORATORYCLIA [id number] [place] [id number] [place] Hemoglobin (Bld) [Mass/Vol] 14.8 g/dL Normal 11.5-15.5 [facility] Comment on above: Order Comment: Speci men Type: BLOOD SPECIMENOrdering Facility: [facility] Address: [address] [place] [address] Performed By: #### 5 7021-8 ####[facility] LABORATORYCLIA [id number] [place] [id number] [place] Immature granulocytes (Bld) [#/Vol] 10*3/uL Normal <0.10 [facility] Comment on above: Order Comment: Speci men Type: BLOOD SPECIMENOrdering Facility: [facility] Address: [address] [place] [address] Performed By: #### 5 7021-8 ####[facility] LABORATORYCLIA [id number] [place] [id number] [place] Immature granulocytes/100 WBC (Bld) 0.2 % Normal [facility] Comment on above: Order Comment: Speci men Type: BLOOD SPECIMENOrdering Facility: [facility] Address: [address] [place] [address] Performed By: #### 5 7021-8 ####[facility] LABORATORYCLIA [id number] [place] [address] [place] Lymphocytes (Bld) [#/Vol] 1.27 10*3/uL Normal 1.00-4.00 [facility] Comment on above: Order Comment: Speci men Type: BLOOD SPECIMENOrdering Facility: [facility] Address: [address] [place] [address] Performed By: #### 5 7021-8 ####[facility] LABORATORYCLIA [id number] [place] [id number] [place] Lymphocytes/100 WBC (Bld) 26.5 % Normal [facility] Comment on above: Order Comment: Speci men Type: BLOOD SPECIMENOrdering Facility: [facility] Address: [address] [place] [address] Performed By: #### 5 7021-8 ####[facility] LABORATORYCLIA [id number] [place] [id number] [place] MCH (RBC) [Entitic mass] 30.4 pg Normal 26.0-34.0 [facility] Comment on above: Order Comment: Speci men Type: BLOOD SPECIMENOrdering Facility: [facility] Address: [address] [place] [address] Performed By: #### 5 7021-8 ####[facility] LABORATORYCLIA [id number] [address] [place] [facility] MCHC (RBC) [Mass/Vol] 34.0 g/dL Normal 30.5-36.0 [facility] Comment on above: Order Comment: Speci men Type: BLOOD SPECIMENOrdering Facility: [facility] Address: [address] [place] [address] Performed By: #### 5 7021-8 ####[facility] LABORATORYCLIA [id number] [place] [address] [place] MCV (RBC) [Entitic vol] 89.3 fL Normal 80.0-100.0 [facility] Comment on above: Order Comment: Speci men Type: BLOOD SPECIMENOrdering Facility: [facility] Address: [address] [place] [address] Performed By: #### 5 7021-8 ####[facility] LABORATORYCLIA [id number] [place] [address] [place] Monocytes (Bld) [#/Vol] 0.26 10*3/uL Normal <0.87 [facility] Comment on above: Order Comment: Speci men Type: BLOOD SPECIMENOrdering Facility: [facility] Address: [address] [place] [address] Performed By: #### 5 7021-8 ####[facility] LABORATORYCLIA [id number] [address] [place] Monocytes/100 WBC (Bld) 5.4 % Normal [facility] Comment on above: Order Comment: Speci men Type: BLOOD SPECIMENOrdering Facility: [facility] Address: [address] [place] [address] Performed By: #### 5 7021-8 ####[facility] LABORATORYCLIA [id number] [place] [address] [place] Neutrophils (Bld) [#/Vol] 3.16 10*3/uL Normal 1.45-7.50 [facility] Comment on above: Order Comment: Speci men Type: BLOOD SPECIMENOrdering Facility: [facility] Address: [address] [place] [address] Performed By: #### 5 7021-8 ####[facility] LABORATORYCLIA [id number] [place] [id number] [place] Neutrophils/100 WBC (Bld) 66.0 % Normal [facility] Comment on above: Order Comment: Speci men Type: BLOOD SPECIMENOrdering Facility: [facility] Address: [address] [place] [address] Performed By: #### 5 7021-8 ####[facility] LABORATORYCLIA [id number] [place] [address] [place] Nucleated RBC (Bld) [#/Vol] 10*3/uL Normal <0.01 [facility] Comment on above: Order Comment: Speci men Type: BLOOD SPECIMENOrdering Facility: [facility] Address: [address] [place] [address] Performed By: #### 5 7021-8 ####[facility] LABORATORYCLIA [id number] [place] [address] [place] Nucleated RBC/100 WBC (Bld) [Ratio] 0.0 /100 WBC Normal [facility] Comment on above: Order Comment: Speci men Type: BLOOD SPECIMENOrdering Facility: [facility] Address: [address] [place] [address] Performed By: #### 5 7021-8 ####[facility] LABORATORYCLIA [id number] [place] [address] [place] Platelet mean volume (Bld) [Entitic vol] 11.8 fL Normal 9.0-12.7 [facility] Comment on above: Order Comment: Speci men Type: BLOOD SPECIMENOrdering Facility: [facility] Address: [address] [place] [address] Performed By: #### 5 7021-8 ####[facility] LABORATORYCLIA [id number] [place] [address] [place] Platelets (Bld) [#/Vol] 226 10*3/uL Normal 150-400 [facility] Comment on above: Order Comment: Speci men Type: BLOOD SPECIMENOrdering Facility: [facility] Address: [address] [place] [address] Performed By: #### 5 7021-8 ####[facility]ORATORYCLIA [id number] [place] [id number] [place] RBC (Bld) [#/Vol] 4.87 10*6/uL Normal 3.90-5.20 [facility] Comment on above: Order Comment: Speci men Type: BLOOD SPECIMENOrdering Facility: [facility] Address: [address] [place] [address] Performed By: #### 5 7021-8 ####[facility]ORATORYCLIA [id number] [place] [id number] [place] WBC (Bld) [#/Vol] 4.79 10*3/uL Normal 3.70-11.00 [facility] Comment on above: Order Comment: Speci men Type: BLOOD SPECIMENOrdering Facility: [facility] Address: [address] [place] [address] Performed By: #### 5 7021-8 ####[facility] LABORATORYCLIA [id number] [place] [id number] [place] CNPNon 05-18-2023 CNPN Normal [facility] CONS[facility]on 05-18-2023 CONSULT Normal [facility] COPPER BLOODon 05-18-2023 Copper [Mass/Vol] 91 ug/dL Normal 80-155 [facility] Comment on above: Order Comment: Speci men Type: BLOOD SPECIMENOrdering Facility: [facility] Address: [address] [place] [address] Result Comment: This test was developed and its performance characteristics determined by [facility]'s Lucie JRenetta [facility] [place] [facility]). It has not been cleared or approved by the FDA. [facility] is regulated under CLIA as qualified to perform high-complexity testing. This test is used for clinical purposes. It should not be regarded as investigational or for research. Performed By: #### C OPPER ####[facility] LABCLIA [id number] [address] [address] [place] Comprehensive metabolic 2000 panelon 05-18-2023 Albumin [Mass/Vol] 4.7 g/dL Normal 3.9-4.9 [facility] Comment on above: Order Comment: Speci men Type: BLOOD SPECIMENOrdering Facility: [facility] Address: [address] [place] [address] Performed By: #### 3 040-3, , ####[facility] LABORATORYCLIA [id number] [place] [id number] [place] ALP [Catalytic activity/Vol] 76 U/L Normal 34-123 [facility] Comment on above: Order Comment: Speci men Type: BLOOD SPECIMENOrdering Facility: [facility] Address: [address] [place] [address] Performed By: #### 3 040-3, , ####[facility]ORATORYCLIA [id number] [place] [id number] [place] ALT [Catalytic activity/Vol] 19 U/L Normal 7-38 [facility] Comment on above: Order Comment: Speci men Type: BLOOD SPECIMENOrdering Facility: [facility] Address: [address] [place] [address] [place] [address] Performed By: #### 3 040-3, , ####[facility] LABORATORYCLIA [id number] [place] [address] [place] Anion gap [Moles/Vol] 14 mmol/L Normal 9-18 [facility] Comment on above: Order Comment: Speci men Type: BLOOD SPECIMENOrdering Facility: [facility] Address: [address] [place], [place] [address] [address] Performed By: #### 3 040-3, , ####[facility]ORYCLIA [id number] [place] [address] [place] AST [Catalytic activity/Vol] 42 U/L High 13-35 [facility] Comment on above: Order Comment: Speci men Type: BLOOD SPECIMENOrdering Facility: [facility] Address: [address] [place] [address] Performed By: #### 3 040-3, , ####[facility]ORATORYCLIA [id number] [place] [address] [place] Bilirubin [Mass/Vol] 0.4 mg/dL Normal 0.2-1.3 [facility] Comment on above: Order Comment: Speci men Type: BLOOD SPECIMENOrdering Facility: [facility] [facility]OSP[facility] Address: [address] [place] [address] Performed By: #### 3 040-3, , ####[facility] LABORATORYCLIA [id number] [place] [id number] [place] Calcium [Mass/Vol] 9.2 mg/dL Normal 8.5-10.2 [facility] Comment on above: Order Comment: Speci men Type: BLOOD SPECIMENOrdering Facility: [facility] Address: [address] [place] [address] Performed By: #### 3 040-3, , ####[facility] LABORATORYCLIA [id number] [place] [address] [place] Chloride [Moles/Vol] 106 mmol/L High 97-105 [facility] Comment on above: Order Comment: Speci men Type: BLOOD SPECIMENOrdering Facility: [facility] Address: [address] [place] [address] Performed By: #### 3 040-3, , ####[facility] LABORATORYCLIA [id number] [place] [address] [place] CO2 [Moles/Vol] 21 mmol/L Low 22-30 [facility] Comment on above: Order Comment: Speci men Type: BLOOD SPECIMENOrdering Facility: [facility] Address: [address] [place] [address] Performed By: #### 3 040-3, , ####[facility] LABORATORYCLIA [id number] [place] [address] [place] [facility] Creatinine [Mass/Vol] 0.82 mg/dL Normal 0.58-0.96 [facility] Comment on above: Order Comment: Geraldo marrero Type: BLOOD SPECIMENOrdering Facility: [facility] Address: [address] [place] [address] Performed By: #### 3 040-3, , ####[facility] LABORATORYCLIA [id number] [place] [address] [facility] Creatinine and Glomerular filtration rate.predicted panel (S/P/Bld) 96 mL/min/1.73m??? Normal >=60 [facility] Comment on above: Order Comment: Geraldo marrero Type: BLOOD SPECIMENOrdering Facility: [facility] Address: [address] [place] [address] Result Comment: Jessica mated Glomerular Filtration Rate [...] GFR. Performed By: #### 3 040-3, , ####[facility] LABORATORYCLIA [id number] [place] [address] [place] Glucose [Mass/Vol] 79 mg/dL Normal 74-99 [facility] Comment on above: Order Comment: Geraldo marrero Type: BLOOD SPECIMENOrdering Facility: [facility] Address: [address] [place] [address] Result Comment: The [place] Diabetes Association (ADA) provides guidance for cutoff [...] Standards of Medical Care in Diabetes 2016, [place] [employer]. Diabetes Care. 2016.39(Suppl 1). Performed By: #### 3 040-3, , ####[facility] LABORATORYCLIA [id number] [place] [address] [place] Potassium [Moles/Vol] 4.3 mmol/L Normal 3.7-5.1 [facility] Comment on above: Order Comment: Geraldo marrero Type: BLOOD SPECIMENOrdering Facility: [facility] Address: [address] [place] [address] Performed By: #### 3 040-3, , ####[facility] LABORATORYCLIA [id number] [place] [address] [place] Protein [Mass/Vol] 7.4 g/dL Normal 6.3-8.0 [facility] Comment on above: Order Comment: Geraldo marrero Type: BLOOD SPECIMENOrdering Facility: [facility] Address: [address] [place] [address] Performed By: #### 3 040-3, , ####[facility] LABORATORYCLIA [id number] [place] [address] [place] Sodium [Moles/Vol] 141 mmol/L Normal 136-144 [facility] Comment on above: Order Comment: Lyssai elida Type: BLOOD SPECIMENOrdering Facility: [facility] Address: [address] [place] [address] Performed By: #### 3 040-3, , ####[facility] LABORATORYCLIA [id number] [place] [address] [place] Urea nitrogen [Mass/Vol] 7 mg/dL Normal 7-21 [facility] Comment on above: Order Comment: Lyssai men Type: BLOOD SPECIMENOrdering Facility: [facility] Address: [address] [place] [address] Performed By: #### 3 040-3, 65771-9, 71815-0 ####[facility] LABORATORYCLIA [id number] [place] [address] [place] Copper Lvlon 05-18-2023 Copper [Mass/Vol] 90 microgram/dL Invalid Interpretation Code 80-158 [facility] Comment on above: Result Comment: This test was developed and its performance characteristicsdetermined by [facility]. It has not been cleared or approvedby the Food and Drug Administration.Detection Limit = 5Performed at: LabLimin ChemicalJames Ville [address] [place], [place] [id number] [place] Jhonathan Dai Performed By: #### 9 [id number], 11055998, 3733536, 6383662, 6435871797, 3188038, 5806477041, 7675908, 91777024 ####[facility] [address] [place] [address] ED PROV NOTEon 05-18-2023 ED PROV NOTE Normal [facility] Folate SerPl-mCncon 05-18-19 24 Folate [Mass/Vol] 10.3 ng/mL Normal >4.7 [facility] Comment on above: Order Comment: Speci men Type: BLOOD SPECIMENOrdering Facility: [facility] Address: [address] [place] [address] Performed By: #### 1 4338-8, 3034-6, 2284-8, 59937-2, 2132-9 ####[facility] LABCLIA [id number] [place] [address] [place] HIV Screen 4th Generation wR fxon 05-18-2023 HIV 1+2 Ab+HIV1 p24 Ag IA Ql Non-Reactive Invalid Interpretation Code Non Reactive [facility] Comment on above: Result Comment: HIV NegativeHIV-1/HIV-2 antibodies and HIV-1 p24 antigen were NOT detected.There is no laboratory evidence of HIV infection.Performed at: [facility]qw[address] [place], [place] [id number] PhD Cami Neri Performed By: #### 9 17050648, 61128229, 2216369, 0212251, 9341620451, 0347411, 7339657391, 8274020, 13825500 ####[facility] [address] [place] [address] Iron and Iron binding capaci ty panelon 05-18-2023 Iron [Mass/Vol] 81 ug/dL Normal 41-186 [facility] Comment on above: Order Comment: Speci men Type: BLOOD SPECIMENOrdering Facility: [facility] Address: [address] [place] [address] Performed By: #### 1 4338-8, 3034-6, 2284-8, 27907-3, 9 ####[facility] LABCLIA [id number] [place] [address] [place] Iron binding capacity [Mass/Vol] 292 ug/dL Normal 232-386 [facility] Comment on above: Order Comment: Speci men Type: BLOOD SPECIMENOrdering Facility: [facility] Address: [address] [place] [address] Performed By: #### 1 4338-8, 3034-6, 4-8, 49154-7, 2131-10 ####[facility] LABCLIA [id number] [place] [address] [place] Iron/TIBC [Molar ratio] 27.7 % Normal 15.0-57.0 [facility] Comment on above: Order Comment: Speci men Type: BLOOD SPECIMENOrdering Facility: [facility] Address: [address] [place] [address] Performed By: #### 1 4338-8, 3034-6, 4-8, 43009-5, 9 ####[facility] LABCLIA [id number] [place] [id number] [place] Lipase SerPl-cCncon 05-18-19 24 Lipase [Catalytic activity/Vol] 37 U/L Normal 16-61 [facility] Comment on above: Order Comment: Speci men Type: BLOOD SPECIMENOrdering Facility: [facility] Address: [facility] [address] Performed By: #### 3 040-3, 29958-8, ####[facility] LABORATORYCLIA [id number] [place] [address] [place] Magnesium SerPl-mCncon 05-17 Magnesium [Mass/Vol] 2.1 mg/dL Normal 1.7-2.3 [facility] Comment on above: Order Comment: Speci men Type: BLOOD SPECIMENOrdering Facility: [facility] Address: [address] [place] [address] Performed By: #### 3 040-3, , ####[facility] LABORATORYCLIA [id number] [place] [address] [place] NURSING PROGon 05-18-2023 NURSING PROG Normal [facility] Prealb SerPl-mCncon 05-18-19 Prealbumin [Mass/Vol] 13 mg/dL Low 17-36 [facility] Comment on above: Order Comment: Speci men Type: BLOOD SPECIMENOrdering Facility: [facility] Address: [facility] [address] Performed By: #### 1 4338-8, 3034-6, 2284-8, 60928-9, 2131-10 ####[facility] LABCLIA [id number] [place] [id number] [place] Transferrin SerPl-mCncon Transferrin [Mass/Vol] 239 mg/dL Normal 200-360 [facility] Comment on above: Order Comment: Speci men Type: BLOOD SPECIMENOrdering Facility: [facility] Address: [facility] [address] Performed By: #### 1 4338-8, 3034-6, 2284-8, 16597-0, 2131-10 ####[facility] LABCLIA [id number] [place] [address] [place] VITAMIN B1 PLASMAon 05-18-19 24 VITAMIN B1, PLASMA 5 nmol/L Normal 4-15 [facility] Comment on above: Order Comment: Speci men Type: BLOOD SPECIMENOrdering Facility: [facility] Address: [address] [place] [address] Result Comment: INTE RPRETIVE DATA: Vitamin B1, PlasmaThiamine (vitamin B1) is reported. However, thiamine diphosphate(TDP), the biologically active form of thiamine, is not found inmeasurable concentrations in plasma, and is best determined inwhole blood specimens. Plasma thiamine concentration reflectsrecent intake rather than body stores.This test was developed and its performance characteristicsdetermined by [facility]. It has not been cleared orapproved by the [place] Food and Drug Administration. This test wasperformed in a CLIA certified laboratory and is intended forclinical purposes.Performed By: [facility] [place] [id number] Director: Kirt Murphy MD, PhDCLIA Number: [id number] Performed By: #### P VITB1 ####[facility]ENTER[facility] [id number] [place] [address] VITAMIN B6/PYRIDOXINon 05-17 VITAMIN B6 39.1 nmol/L Normal 20.0-125.0 [facility] Comment on above: Order Comment: Speci men Type: BLOOD SPECIMENOrdering Facility: [facility] Address: [address] [place] [address] Result Comment: INTE RPRETIVE INFORMATION: Vitamin B6 (Pyridoxal 5-Phosphate)Pyridoxal 5'-phosphate measured in a specimen collected followingan 8-hour or overnight fast accurately indicates vitamin T1brvyirncrfp status. Non-fasting specimen concentration reflectsrecent vitamin intake.This test was developed and its performance characteristicsdetermined by [facility]. It has not been cleared orapproved by the [place] Food and Drug Administration. This test wasperformed in a CLIA certified laboratory and is intended forclinical purposes.Performed By: [facility] [place] [id number] Director: Kirt Murphy MD, PhDCLIA Number: [id number] Performed By: #### V ITB6 ####[facility] LABORATORIESIA [id number] [place] [address] Vit A SerPl-mCncon 4 Retinol [Mass/Vol] 0.17 mg/L Low 0.30-1.20 [facility] Comment on above: Order Comment: Speci men Type: BLOOD SPECIMENOrdering Facility: [facility] Address: [address] [place] [address] Result Comment: This test was developed and its performance characteristics determined by [facility] Pathology and Laboratory Medicine [place] ([facility]). It has not been cleared or approved by the FDA. -[facility] is regulated under CLIA as qualified to perform high-complexity testing. This test is used for clinical purposes. It should not be regarded as investigational or for research. Performed By: #### 2 923-1 ####[facility] LABCLIA [id number] [place] [address] [place] Vit B12 SerPl-mCncon 024 Cobalamin (Vitamin B12) [Mass/Vol] 1155 pg/mL Normal 232-1245 [facility] Comment on above: Order Comment: Speci men Type: BLOOD SPECIMENOrdering Facility: [facility] Address: [address] [place] [address] Performed By: #### 1 4338-8, 3034-6, 2284-8, 20193-7, 2132-9 ####[facility] LABCLIA [id number] [place] [address] [place] ZINC, WHOLE BLOODon 05-18-19 24 ZINC, WHOLE BLOOD 670.6 ug/dL Normal 440.0-860.0 [facility] Comment on above: Order Comment: Speci men Type: BLOOD SPECIMENOrdering Facility: [facility] Address: [address] [place] [address] Result Comment: INTE RPRETIVE DATA: Zinc Quantitative, [...] was developed and its performance characteristicsdetermined by [facility]. It has not been cleared orapproved by the [place] Food and Drug Administration. This test wasperformed in a CLIA certified laboratory and is intended forclinical purposes.Performed By: [address] [place], [place] [address]Jeqowkekge Director: Kirt Murphy MD, PhDCLIA Number: [id number] Performed By: #### Z INCWB ####[facility] [id number] [place] [address] CBC w/ Auto Diffon 4 Basophils/100 WBC (Bld) 0.7 % Normal 0.0-2.0 [facility] Comment on above: Performed By: #### 2 912029, 8919369, 5938092, 61489272 ####[facility] [address] [place] [address] Basophils/Leukocyte s Auto (Bld) [Pure # fraction] 0.0 E9/L Normal 0.0-0.2 [facility] Comment on above: Performed By: #### 2 231574, 9278955, 2239153, 73044206 ####[facility] [address] [place] [address] Eosinophils (Bld) [#/Vol] 0.1 E9/L Normal 0.0-0.5 [facility] Comment on above: Performed By: #### 2 303377, 1043523, 2994464, 54937898 ####[place] [address] [place] [address] Eosinophils/100 WBC (Bld) 1.9 % Normal 0.0-8.0 [facility] Comment on above: Performed By: #### 2 935991, 7073521, 3018290, 01094951 ####[facility] [address] [address] Erythrocyte distribution width (RBC) [Ratio] 14.1 % Normal 10.9-14.2 [facility] Comment on above: Performed By: #### 2 277068, 0183059, 4939842, 16387536 ####[address] [address] Hematocrit (Bld) [Volume fraction] 41.1 % Normal 34.0-46.0 [facility] Comment on above: Performed By: #### 2 854911, 4416519, 5672327, 19487789 ####[address] [address] Hemoglobin (Bld) [Mass/Vol] 13.7 g/dL Normal 12.0-16.0 [facility] Comment on above: Performed By: #### 2 586405, 7494888, 8449618, 48646764 ####[address] [address] Lymphocytes (Bld) [#/Vol] 1.4 E9/L Normal 1.0-4.0 [facility] Comment on above: Performed By: #### 2 677120, 7163551, 6800147, 81351052 ####[address] [address] Lymphocytes/100 WBC (Bld) 38.9 % Normal 14.0-50.0 [facility] Comment on above: Performed By: #### 2 138918, 6961620, 6125137, 65800892 ####[address] [address] MCH (RBC) [Entitic mass] 29.8 pg Normal 27.0-34.0 [facility] Comment on above: Performed By: #### 2 140198, 4886277, 2144261, 49175861 ####[address] [address] MCHC (RBC) [Mass/Vol] 33.3 g/dL Normal 31.4-36.0 [facility] Comment on above: Performed By: #### 2 216329, 6803144, 6699954, 08270999 ####[address] [address] MCV (RBC) [Entitic vol] 89.5 fL Normal 80.0-100.0 [facility] Comment on above: Performed By: #### 2 193455, 5259527, 8725857, 30968033 ####[address] [address] Monocytes (Bld) [#/Vol] 0.2 E9/L Normal 0.2-1.0 [facility] Comment on above: Performed By: #### 2 885104, 4514030, 9017560, 92698382 ####[address] [address] Neutrophils (Bld) [#/Vol] 1.9 E9/L Low 2.0-7.5 [facility] Comment on above: Performed By: #### 2 340421, 8945532, 7189986, 85097314 ####[address] [address] Neutrophils/100 WBC (Bld) 52.6 % Normal 36.0-75.0 [facility] Comment on above: Performed By: #### 2 805967, 5089234, 3249380, 45653881 ####[address] [address] Platelet 195.0 E9/L Normal 150.0-500.0 [facility] Comment on above: Performed By: #### 2 371330, 7789519, 7545199, 39249752 ####[address] [address] Platelet mean volume (Bld) [Entitic vol] 9.0 fL Normal 6.4-10.8 [facility] Comment on above: Performed By: #### 2 341213, 4296988, 9226319, 17650670 ####[facility] [address] [place] [address] RBC (Bld) [#/Vol] 4.6 E12/L Normal 4.3-5.9 [facility] Comment on above: Performed By: #### 2 256738, 9560449, 9145373, 76706404 ####[facility] [address] [place] [address] WBC corrected for nucl RBC Auto (Bld) [#/Vol] 3.6 E9/L Low 4.0-11.0 [facility] Comment on above: Performed By: #### 2 913906, 7146094, 8206492, 99280788 ####[facility] [address] [place] [address] CHEMISTRYOrdered By: SYSTEM SYSTEM on 05-17-2023 Albumin [...] 05-17-2023 Albumin [Mass/Vol] 4.5 g/dL Normal 3.3-5.0 [facility] Comment on above: Performed By: #### 2 717933, 3943740, 9777666, 97148676 ####[facility] [address] [place] [address] Albumin/Globulin (S) [Mass conc ratio] 1.6 Normal 1.1-2.2 [facility] Comment on above: Performed By: #### 2 626822, 6226406, 1921767, 01273544 ####[facility] [address] [place] [address] ALP [Catalytic activity/Vol] 61 Int._Unit/L Normal 21-98 [facility] Comment on above: Performed By: #### 2 163137, 6770278, 6656609, 17305308 ####[facility] [address] [place] [address] ALT No additional P-5'-P [Catalytic activity/Vol] 17 Int._Unit/L Normal 6-46 [facility] Comment on above: Performed By: #### 2 580670, 4499074, 5506596, 35427377 ####[facility] [address] [place] [address] Anion gap [Moles/Vol] 12 mmol/L Normal 6-16 [facility] Comment on above: Performed By: #### 2 490479, 2612833, 2783856, 64865530 ####[facility] [address] [place] [address] AST [Catalytic activity/Vol] 30 Int._Unit/L Normal 5-43 [facility] Comment on above: Performed By: #### 2 417551, 2346249, 6895625, 70706082 ####[facility] [address] [place] [address] Bilirubin [Mass/Vol] 0.5 mg/dL Normal 0.0-1.1 [facility] Comment on above: Performed By: #### 2 451906, 7480673, 6557034, 55736291 ####[facility] [address] [place] [address] Calcium [Mass/Vol] 9.2 mg/dL Normal 8.9-11.1 [facility] Comment on above: Performed By: #### 2 527674, 3374258, 8260764, 89380700 ####[facility] [address] [place] [address] Chloride [Moles/Vol] 106 mmol/L Normal 101-111 [facility] Comment on above: Performed By: #### 2 126904, 3265505, 0835338, 95161106 ####[facility] [address] [place] [address] CO2 [Moles/Vol] 24 mmol/L Normal 21-31 [facility] Comment on above: Performed By: #### 2 728563, 3795685, 6725403, 11102358 ####[facility] [address] [place] [address] Creatinine [Mass/Vol] 0.9 mg/dL Normal 0.5-1.3 [facility] Comment on above: Performed By: #### 2 593679, 9719769, 2933103, 67499014 ####[facility] [address] [place] [address] Globulin (S) [Mass/Vol] 2.9 g/dL Normal 1.4-4.0 [facility] Comment on above: Performed By: #### 2 955192, 5561506, 0046929, 45988413 ####[facility] [address] [place] [address] Glucose [Mass/Vol] 80 mg/dL Normal 55-199 [facility] Comment on above: Performed By: #### 2 959147, 1076309, 0387309, 92143573 ####[facility] [address] [place] [address] Potassium [Moles/Vol] 3.8 mmol/L Normal 3.5-5.3 [facility] Comment on above: Performed By: #### 2 527107, 0416349, 2474876, 19868425 ####[facility] [address] [place] [address] Protein [Mass/Vol] 7.4 g/dL Normal 6.0-7.8 [facility] Comment on above: Performed By: #### 2 656056, 5261819, 4614044, 41365203 ####[facility] [address] [place] [address] Sodium [Moles/Vol] 138 mmol/L Normal 135-145 [facility] Comment on above: Performed By: #### 2 875059, 4538400, 2199851, 88247511 ####[facility] [address] [place] [address] Urea nitrogen [Mass/Vol] 6 mg/dL Normal 5-21 [facility] Comment on above: Performed By: #### 2 999121, 8014689, 7620532, 72190163 ####[facility] [address] [place] [address] Urea nitrogen/Creatinine [Mass ratio] 7 No Units Low 12-04 [facility] Comment on above: Performed By: #### 2 251129, 7695640, 2227912, 63321854 ####[facility] [address] [place] [address] Consent for Treatmenton Consent for Treatment [id number]#1.00TIFF Normal [facility] Discharge Instructionson Discharge Instructions [id number]#1.00TIFF Normal [facility] ED Clinical Summaryon 2023 ED Clinical Summary Normal [facility] ED Note-Physicianon 05-17-19 ED Note-Physician Normal [facility] Comment on above: Result Comment: Elec tronically Signed By: Tiffani Cunningham PA-C\.br\Date and Time Signed: 05/17/23 15:46 EDT\.br\Electronically Co-Signed By: Ashutosh Albright M.D.\.br\Date and Time Co-Signed: 05/17/23 17:49 EDT ED Patient Education Noteon 05-17-2023 ED Patient Education Note Normal [facility] ED Patient Summaryon 024 ED Patient Summary Normal [facility] HEMATOLOGYOrdered By: SYSTEM SYSTEM on 05-17-2023 Basophils/100 [...] 05-17-2023 Magnesium [Mass/Vol] 2.1 mg/dL Normal 1.3-2.4 [facility] Comment on above: Performed By: #### 2 551559, 0665391, 3513751, 73781406 ####[facility] [address] [place] [address] Population Healthon 04-01-20 24 Population Health Normal [facility] Pre-Arrival Noteon 4 Pre-Arrival Note Normal [facility] eGFRon 05-17-2023 eGFR 86 mL/min/1.73 m2 Normal >=59 [facility] Comment on above: Order Comment: Order added by Discern Expert. Performed By: #### 2 800228, 6919693, 7175187, 40200939 ####[facility] [address] [place] [address] BMPon 05-14-2023 Anion gap [Moles/Vol] 8 mmol/L Normal 6-16 [facility] Comment on above: Performed By: #### 9 11632666, 59465611, 0719981, 8013951, 2618839483, 5619705, 1266226907, 2060243, 74104768 ####[facility] [address] [place] [address] Calcium [Mass/Vol] 8.6 mg/dL Low 8.9-11.1 [facility] Comment on above: Performed By: #### 9 37388192, 74414639, 9417057, 2504223, 5213776423, 0817124, 1722400023, 6462403, 67064436 ####[facility] [address] [place] [address] Chloride [Moles/Vol] 110 mmol/L Normal 101-111 [facility] Comment on above: Performed By: #### 9 16413933, 58991364, 5570192, 3176705, 6003646432, 6669680, 9590672097, 4210349, 66110764 ####[facility] [address] [place] [address] CO2 [Moles/Vol] 26 mmol/L Normal 21-31 [facility] Comment on above: Performed By: #### 9 42072063, 70858011, 3261600, 7662458, 7591655100, 6441490, 8503712757, 1605484, 50654279 ####[facility] [address] [place] [address] Creatinine [Mass/Vol] 0.9 mg/dL Normal 0.5-1.3 [facility] Comment on above: Performed By: #### 9 04702596, 93178126, 2181169, 6654774, 3169123784, 5644427, 0600922709, 6666665, 42620657 ####[facility] [address] [place] [address] Glucose [Mass/Vol] 96 mg/dL Normal 55-199 [facility] Comment on above: Performed By: #### 9 42855589, 31634775, 8245283, 5857138, 8072612741, 3893277, 5513560546, 9598477, 03061540 ####[facility] [facility] [address] [place] [address] Potassium [Moles/Vol] 4.0 mmol/L Normal 3.5-5.3 [facility] Comment on above: Performed By: #### 9 68128248, 28622341, 3394182, 6375488, 7124416045, 7813402, 3363916362, 5863746, 94872256 ####[facility] [address] [place] [address] Sodium [Moles/Vol] 140 mmol/L Normal 135-145 [facility] Comment on above: Performed By: #### 9 34502393, 09390201, 2123375, 8254687, 2523932535, 3928649, 9821459090, 6481669, 39143852 ####[facility] [address] [place] [address] Urea nitrogen [Mass/Vol] 5 mg/dL Normal 5-21 [facility] Comment on above: Performed By: #### 9 82715734, 54413623, 3791024, 5082651, 2330642783, 9557255, 5128641918, 2662134, 15747354 ####[facility] [address] [place] [address] Urea nitrogen/Creatinine [Mass ratio] 6 No Units Low 10-20 [facility] Comment on above: Performed By: #### 9 67946486, 05218280, 9185855, 4649516, 2021917607, 9162840, 0179898836, 6199484, 17787940 ####[address] [place] [address] CBC w/ Auto Diffon 4 Basophils/100 WBC (Bld) 1.4 % Normal 0.0-2.0 [facility] Comment on above: Performed By: #### 9 13810703, 23559341, 0523255, 3341042, 0374383031, 5643406, 3110162564, 3761241, 42573305 ####[address] [address] Basophils/Leukocyte s Auto (Bld) [Pure # fraction] 0.0 E9/L Normal 0.0-0.2 [facility] Comment on above: Performed By: #### 9 24573179, 69743207, 0037562, 5228956, 5817604409, 8979613, 2282247183, 3763030, 44761972 ####[address] [address] Eosinophils (Bld) [#/Vol] 0.1 E9/L Normal 0.0-0.5 [facility] Comment on above: Performed By: #### 9 56039131, 90567873, 5298878, 1754818, 0720144139, 7291341, 2896571771, 5895291, 60052307 ####[address] [address] Eosinophils/100 WBC (Bld) 6.1 % Normal 0.0-8.0 [facility] Comment on above: Performed By: #### 9 95637936, 97826024, 3274039, 8023329, 7707016503, 9184359, 5991728209, 0230412, 11303020 ####[address] [address] Erythrocyte distribution width (RBC) [Ratio] 14.4 % High 10.9-14.2 [facility] Comment on above: Performed By: #### 9 70056302, 33527106, 5920090, 6386804, 9056728910, 0192366, 1337261087, 0970265, 89250499 ####[facility] [address] [place] [address] Hematocrit (Bld) [Volume fraction] 36.1 % Normal 34.0-46.0 [facility] Comment on above: Performed By: #### 9 64198222, 03908359, 8498468, 2589221, 2722948923, 9271388, 2532247544, 4190824, 04510626 ####[address] [place] [address] Hemoglobin (Bld) [Mass/Vol] 12.2 g/dL Normal 12.0-16.0 [facility] Comment on above: Performed By: #### 9 45180534, 99086614, 9866853, 2407428, 3980651207, 4559317, 3028180224, 6453580, 00924455 ####[address] [address] Lymphocytes (Bld) [#/Vol] 1.1 E9/L Normal 1.0-4.0 [facility] Comment on above: Performed By: #### 9 24883592, 19804529, 8846986, 6070568, 3681202546, 6601513, 9517767859, 2367744, 38117481 ####[address] [address] Lymphocytes/100 WBC (Bld) 51.0 % High 14.0-50.0 [facility] Comment on above: Performed By: #### 9 68121609, 48187268, 9124664, 6166408, 2536258835, 9409155, 7235482007, 0371042, 68291715 ####[address] [address] MCH (RBC) [Entitic mass] 30.3 pg Normal 27.0-34.0 [facility] Comment on above: Performed By: #### 9 21624153, 92888135, 7033453, 7330316, 1935271733, 1231103, 6996853905, 8471878, 43657106 ####[address] [place] [address] MCHC (RBC) [Mass/Vol] 33.9 g/dL Normal 31.4-36.0 [facility] Comment on above: Performed By: #### 9 58507208, 04800942, 7093349, 5181107, 5391182311, 8560906, 8322230579, 8686946, 14447774 ####[address] [address] MCV (RBC) [Entitic vol] 89.3 fL Normal 80.0-100.0 [facility] Comment on above: Performed By: #### 9 57085450, 41449127, 1294418, 9423957, 4343128846, 6179748, 8645868794, 9827054, 67274558 ####[address] [address] Monocytes (Bld) [#/Vol] 0.1 E9/L Low 0.2-1.0 [facility] Comment on above: Performed By: #### 9 14217594, 90794885, 9068027, 5944912, 9073029257, 1740176, 7923257338, 7565139, 06640437 ####[address] [address] Neutrophils (Bld) [#/Vol] 0.8 E9/L Low 2.0-7.5 [facility] Comment on above: Performed By: #### 9 16573661, 46262466, 6624166, 0977244, 6761865478, 9221605, 2782504717, 7047498, 29673850 ####[address] [address] Neutrophils/100 WBC (Bld) 36.8 % Normal 36.0-75.0 [facility] Comment on above: Performed By: #### 9 42070507, 11016113, 1916794, 3820239, 8287356346, 0723067, 8349592169, 1417305, 03173692 ####[facility] [address] [place] [address] Platelet mean volume (Bld) [Entitic vol] 9.3 fL Normal 6.4-10.8 [facility] Comment on above: Performed By: #### 9 34737369, 01755271, 7537018, 3490973, 6501859426, 6569216, 3828842679, 7768812, 49070067 ####[facility] [address] [place] [address] Platelets (Bld) [#/Vol] 167.0 E9/L Normal 150.0-500.0 [facility] Comment on above: Performed By: #### 9 50099184, 07791066, 2809815, 8053313, 3698479390, 9991289, 7767986681, 3076876, 51188984 ####[facility] [address] [place] [address] RBC (Bld) [#/Vol] 4.0 E12/L Low 4.3-5.9 [facility] Comment on above: Performed By: #### 9 06237653, 27403956, 5538247, 8685894, 0783226566, 9003777, 2779777244, 7722816, 00727879 ####[facility] [address] [place] [address] WBC corrected for nucl RBC Auto (Bld) [#/Vol] 2.1 E9/L Low 4.0-11.0 [facility] Comment on above: Result Comment: Resu lts consistant with previous path review on 05/13/23, reviewed by [id number] Performed By: #### 9 56651228, 56989861, 2413486, 4358228, 6430084252, 3894177, 8491369061, 4998818, 75654983 ####[facility] [address] [place] [address] CHEMISTRYOrdered By: SYSTEM SYSTEM on 05-14-2023 Anion [...] Chem Consultation Noteon 05-14-19 Consultation Note Normal [facility] Comment on above: Result Comment: Elec tronically Signed By: Miguel JOHNSON, Jon Smith\.br\Date and Time Signed: 05/14/23 11:54 EDT Discharge Note-Nursingon Discharge Note-Nursing Invalid Interpretation Code [address] [place] [address]- \.br\ Wednesday 9:45 AM EDT \.br\ With: Nasim JOHNSON, Rajni Ballesteros\.br\ [facility] Folateon 05-14-2023 Folate [Mass/Vol] 10.1 ng/mL Normal >=6.7 [facility] Comment on above: Performed By: #### 9 91137946, 06379785, 8789084, 1450543, 2367944507, 3397685, 8756578989, 9321561, 37625166 ####[facility] [address] [place] [address] HEMATOLOGYOrdered By: SYSTEM SYSTEM on 05-14-2023 Basophils/100 [...] previous path review on 05/13/23, reviewed by [id number] Inpatient Clinical Summaryon 05-14-2023 Inpatient Clinical Summary Normal [facility] Inpatient Patient Summaryon 05-14-2023 Inpatient Patient Summary Normal [facility] Interdisciplinary Note - Taz e Manageron 05-14-2023 Interdisciplinary Note - Aircraft Tool [employer] [facility] Comment on above: Result Comment: Elec tronically Signed By: Kera Diehl\.br\Date and Time Signed: 05/14/23 10:23 EDT IntraOperative Documentson 0 05-14-2023 IntraOperative Documents [id number] 905#1.00TIFF [facility] Progress Note-Physicianon Progress Note-Physician [facility] Comment on above: Result Comment: Elec tronically Signed By: Moncho Trejo DO.br\Date and Time Signed: 05/14/23 10:14 EDT Progress Note-Physician Normal [facility] Comment on above: Result Comment: Elec tronically Signed By: Kuldip Arcos Jr, DO\.br\Date and Time Signed: 05/14/23 07:41 EDT Progress Note-Physician Normal [facility] Comment on above: Result Comment: Elec tronically Signed By: Isrrael Cummins DO, Kuldip Arzate\.rene\Date and Time Signed: 05/14/23 07:41 EDT Vit B12on 05-14-2023 Cobalamin (Vitamin B12) [Mass/Vol] 791 pg/mL Normal 50-1500 [facility] Comment on above: Performed By: #### 9 00885223, 77405991, 5084640, 9807493, 6455055176, 8476307, 5377418724, 0222063, 38499085 ####[facility] [address] [place] [address] eGFRon 05-14-2023 eGFR 86 mL/min/1.73 m2 Normal >=59 [facility] Comment on above: Order Comment: Order added by Discern Expert. Performed By: #### 9 57157054, 25519778, 1121705, 6185413, 6401526663, 2495794, 6372377068, 4293894, 42607504 ####[address] [address] CBC w/ Auto Diffon 4 Basophils/100 WBC (Bld) 1.2 % Normal 0.0-2.0 [facility] Comment on above: Performed By: #### 2 852860, 5280752, 13471034, 59616752 ####[address] [place] [address] Basophils/Leukocyte s Auto (Bld) [Pure # fraction] 0.0 E9/L Normal 0.0-0.2 [facility] Comment on above: Performed By: #### 2 470934, 2441102, 41045308, 96812537 ####[facility] [address] [place] [address] Eosinophils (Bld) [#/Vol] 0.1 E9/L Normal 0.0-0.5 [facility] Comment on above: Performed By: #### 2 373222, 1817763, 84596022, 82436079 ####[facility] [address] [address] Eosinophils/100 WBC (Bld) 4.7 % Normal 0.0-8.0 [facility] Comment on above: Performed By: #### 2 511721, 0777219, 83955290, 48694497 ####[address] [address] Erythrocyte distribution width (RBC) [Ratio] 14.3 % High 10.9-14.2 [facility] Comment on above: Performed By: #### 2 525849, 7903454, 80030062, 97683902 ####[address] [address] Hematocrit (Bld) [Volume fraction] 37.1 % Normal 34.0-46.0 [facility] Comment on above: Performed By: #### 2 262138, 9130055, 59981014, 42249451 ####[address] [address] Hemoglobin (Bld) [Mass/Vol] 12.5 g/dL Normal 12.0-16.0 [facility] Comment on above: Performed By: #### 2 825023, 6899538, 31730305, 14088201 ####[address] [address] Lymphocytes (Bld) [#/Vol] 1.1 E9/L Normal 1.0-4.0 [facility] Comment on above: Performed By: #### 2 826137, 8581797, 07808801, 55733306 ####[address] [address] Lymphocytes/100 WBC (Bld) 53.2 % High 14.0-50.0 [facility] Comment on above: Performed By: #### 2 393922, 3036204, 66590332, 02634970 ####[address] [address] MCH (RBC) [Entitic mass] 30.1 pg Normal 27.0-34.0 [facility] Comment on above: Performed By: #### 2 914182, 8015043, 92142878, 74529724 ####[address] [address] MCHC (RBC) [Mass/Vol] 33.6 g/dL Normal 31.4-36.0 [facility] Comment on above: Performed By: #### 2 497031, 9758768, 24249127, 69477655 ####[address] [address] MCV (RBC) [Entitic vol] 89.4 fL Normal 80.0-100.0 [facility] Comment on above: Performed By: #### 2 358288, 8968982, 14311849, 23448721 ####[address] [address] Monocytes (Bld) [#/Vol] 0.1 E9/L Low 0.2-1.0 [facility] Comment on above: Performed By: #### 2 027253, 8466818, 09386403, 18639559 ####[address] [address] Neutrophils (Bld) [#/Vol] 0.7 E9/L Low 2.0-7.5 [facility] Comment on above: Performed By: #### 2 866761, 7769818, 28064010, 11720656 ####[address] [address] Neutrophils/100 WBC (Bld) 34.6 % Low 36.0-75.0 [facility] Comment on above: Performed By: #### 2 201955, 1179994, 23913389, 82174778 ####[address] [address] Platelet 168.0 E9/L Normal 150.0-500.0 [facility] Comment on above: Performed By: #### 2 734864, 4817819, 14881842, 16280936 ####[facility] [address] [place] [address] Platelet mean volume (Bld) [Entitic vol] 9.1 fL Normal 6.4-10.8 [facility] Comment on above: Performed By: #### 2 546893, 4690812, 32823101, 20401119 ####[facility] [address] [place] [address] RBC (Bld) [#/Vol] 4.1 E12/L Low 4.3-5.9 [facility] Comment on above: Performed By: #### 2 042146, 7407147, 40374124, 41094186 ####[facility] [address] [place] [address] WBC corrected for nucl RBC Auto (Bld) [#/Vol] 2.0 E9/L Abnormal 4.0-11.0 [facility] Comment on above: Result Comment: Resu lts called to JACKSON MARROQUIN by and read back on 05/13/2023 07:20:49.Critical Result Verified by Repeat AnalysisSlide review performed Performed By: #### 2 296757, 0354921, 61939004, 24210272 ####[facility] [address] [place] [address] CHEMISTRYOrdered By: SYSTEM SYSTEM on 05-13-2023 Albumin [...] 05-13-2023 Albumin [Mass/Vol] 3.9 g/dL Normal 3.3-5.0 [facility] Comment on above: Performed By: #### 2 018944, 1301833, 82842908, 53506957 ####[facility] [address] [place] [address] Albumin/Globulin (S) [Mass conc ratio] 1.6 Normal 1.1-2.2 [facility] Comment on above: Performed By: #### 2 603739, 2308660, 21033169, 25301570 ####[facility] [address] [place] [address] ALP [Catalytic activity/Vol] 49 Int._Unit/L Normal 21-98 [facility] Comment on above: Performed By: #### 2 468616, 5441047, 14190018, 41856578 ####[facility] [address] [place] [address] ALT No additional P-5'-P [Catalytic activity/Vol] 12 Int._Unit/L Normal 6-46 [facility] Comment on above: Performed By: #### 2 563075, 4664251, 62868358, 34894890 ####[facility] [address] [place] [address] Anion gap [Moles/Vol] 9 mmol/L Normal 6-16 [facility] Comment on above: Performed By: #### 2 799906, 5914892, 78220278, 05479178 ####[facility] [address] [place] [address] AST [Catalytic activity/Vol] 23 Int._Unit/L Normal 5-43 [facility] Comment on above: Performed By: #### 2 248805, 5723846, 69354284, 12821222 ####[facility] [address] [place] [address] Bilirubin [Mass/Vol] 0.4 mg/dL Normal 0.0-1.1 [facility] Comment on above: Performed By: #### 2 743102, 8305644, 85760849, 70219416 ####[facility] [address] [place] [address] Calcium [Mass/Vol] 8.4 mg/dL Low 8.9-11.1 [facility] Comment on above: Performed By: #### 2 772534, 2545939, 49378081, 49460855 ####[facility] [address] [place] [address] Chloride [Moles/Vol] 111 mmol/L Normal 101-111 [facility] Comment on above: Performed By: #### 2 917545, 2267581, 32176469, 72871591 ####[facility] [address] [place] [address] CO2 [Moles/Vol] 24 mmol/L Normal 21-31 [facility] Comment on above: Performed By: #### 2 975852, 8583411, 42231432, 11641752 ####[facility] [address] [place] [address] Creatinine [Mass/Vol] 0.7 mg/dL Normal 0.5-1.3 [facility] Comment on above: Performed By: #### 2 379214, 5094405, 49842716, 87949720 ####[facility] [address] [place] [address] Globulin (S) [Mass/Vol] 2.5 g/dL Normal 1.4-4.0 [facility] Comment on above: Performed By: #### 2 757653, 5738773, 72809286, 79874855 ####[facility] [address] [place] [address] Glucose [Mass/Vol] 84 mg/dL Normal 55-199 [facility] Comment on above: Performed By: #### 2 254262, 5947699, 33614277, 10885731 ####[facility] [address] [place] [address] Potassium [Moles/Vol] 3.7 mmol/L Normal 3.5-5.3 [facility] Comment on above: Performed By: #### 2 933738, 1764578, 87465351, 43205354 ####[facility] [address] [place] [address] Protein [Mass/Vol] 6.4 g/dL Normal 6.0-7.8 [facility] Comment on above: Performed By: #### 2 303050, 0439791, 73804777, 54313271 ####[facility] [address] [place] [address] Sodium [Moles/Vol] 140 mmol/L Normal 135-145 [facility] Comment on above: Performed By: #### 2 698170, 9782643, 41156839, 63428467 ####[facility] [address] [place] [address] Urea nitrogen [Mass/Vol] 7 mg/dL Normal 5-21 [facility] Comment on above: Performed By: #### 2 154309, 0344809, 12192143, 38602914 ####[facility] [address] [place] [address] Urea nitrogen/Creatinine [Mass ratio] 10 No Units Normal 10-20 [facility] Comment on above: Performed By: #### 2 481547, 8924932, 06953839, 86176537 ####[facility] [address] [place] [address] Consenton 05-13-2023 Consent [id number] 250#1.00TIFF Normal [facility] Consultation Noteon 05-13-19 24 Consultation Note Normal [facility] Comment on above: Result Comment: Elec tronically [...] reticulocytes. Leukocytopenia with reactive lymphocytes and monocytes.CPT 19853 Invalid Interpretation Code [facility] Interdisciplinary Note - Taz e Manageron 05-13-2023 Interdisciplinary Note - Aircraft Tool [employer] [facility] Comment on above: Result Comment: Elec tronically Signed By: Kera Diehl\.br\Date and Time Signed: 05/13/23 13:46 EDT Main OR Intraoperative Recor don 05-13-2023 Main OR Intraoperative Record Normal [facility] Oncology Progress Noteon Oncology Progress Note Normal [facility] Path. Reviewon 05-13-2023 Path Review Anemia with no increase of reticulocytes. Leukocytopenia with reactive lymphocytes and monocytes. Invalid Interpretation Code [facility] Comment on above: Order Comment: Order added by Discern Expert Performed By: #### 2 005413, 6971177, 12480557, 59961918 ####[facility] [address] [place] [address] Progress Note-Physicianon Progress Note-Physician Normal [facility] Comment on above: Result Comment: Elec tronically Signed By: Moncho Trejo DO\.br\Date and Time Signed: 05/13/23 10:43 EDT eGFRon 05-13-2023 eGFR 116 mL/min/1.73 m2 Normal >=59 [facility] Comment on above: Order Comment: Order added by Discern Expert. Performed By: #### 2 416286, 4932322, 49962802, 82086389 ####[facility] [address] [place] [address] B hCG Qualon 05-12-2023 Beta HCG ( test) Ql Negative Normal [facility] Comment on above: Performed By: #### 1 8092531, 1468064, 78375618, 1592877, 8971727, 10541755, 53973173, 9758690 ####[facility] [address] [place] [address] BMPOrdered By: SYSTEM SYSTEM on 05-12-2023 Anion gap [Moles/Vol] 11 mmol/L Normal 6-16 [facility] Comment on above: Performed By: #### 1 1301799, 2283051, 06046641, 3256426, 5317726, 86960531, 80692369, 4201685 ####[facility] [address] [place] [address] Calcium [Mass/Vol] 9.0 mg/dL Normal 8.9-11.1 [facility] Comment on above: Performed By: #### 1 5688530, 8335645, 30711574, 1229337, 5164356, 54319246, 62899175, 5350316 ####[address] [place] [address] Chloride [Moles/Vol] 105 mmol/L Normal 101-111 [facility] Comment on above: Performed By: #### 1 7509414, 7054383, 20291843, 0231205, 9817516, 31907549, 81350559, 6125377 ####[address] [address] CO2 [Moles/Vol] 25 mmol/L Normal 21-31 [facility] Comment on above: Performed By: #### 1 9039890, 7254936, 20559945, 4494384, 0971126, 93554157, 17523475, 6219683 ####[facility] [address] [place] [address] Creatinine [Mass/Vol] 1.0 mg/dL Normal 0.5-1.3 [facility] Comment on above: Performed By: #### 1 0750890, 2168210, 86166722, 7308888, 1377885, 47084264, 02614035, 1828176 ####[address] [place] [address] Glucose [Mass/Vol] 94 mg/dL Normal 55-199 [facility] Comment on above: Performed By: #### 1 0665842, 6264655, 79601496, 5572581, 1412465, 25270978, 31799828, 8646219 ####[facility] [address] [place] [address] Potassium [Moles/Vol] 3.9 mmol/L Normal 3.5-5.3 [facility] Comment on above: Performed By: #### 1 6579205, 4285717, 93251994, 3455818, 1756650, 54695533, 14330735, 5871496 ####[facility] [address] [place] [address] Sodium [Moles/Vol] 137 mmol/L Normal 135-145 [facility] Comment on above: Performed By: #### 1 7983843, 0245528, 93752697, 3705937, 3242696, 25908496, 42594314, 2322511 ####[address] [place] [address] Urea nitrogen [Mass/Vol] 10 mg/dL Normal 5-21 [facility] Comment on above: Performed By: #### 1 1155045, 4004399, 20728307, 6460379, 6308119, 90116267, 27718238, 2172785 ####[address] [address] BMPon 05-12-2023 Urea nitrogen/Creatinine [Mass ratio] 10 No Units Normal 10-20 [facility] Comment on above: Performed By: #### 1 9618816, 9918956, 60888655, 3790285, 7153878, 84822914, 24102270, 5866608 ####[address] [address] CBC w/ Auto DiffOrdered By: SYSTEM SYSTEM on 05-12-2023 Basophils/100 WBC (Bld) 0.9 % Normal 0.0-2.0 [facility] Comment on above: Performed By: #### 1 2624155, 1116561, 40854821, 8140735, 8516100, 04220217, 05762745, 1622934 ####[address] [address] Basophils/Leukocyte s Auto (Bld) [Pure # fraction] 0.0 E9/L Normal 0.0-0.2 [facility] Comment on above: Performed By: #### 1 2731885, 9026011, 95139923, 4286005, 3301969, 09824382, 70276446, 2136246 ####[place] [address] [place] [address] Eosinophils (Bld) [#/Vol] 0.1 E9/L Normal 0.0-0.5 [facility] Comment on above: Performed By: #### 1 7632099, 8788391, 67243850, 8314084, 4766486, 43985468, 94432603, 2692002 ####[place] [address] Eosinophils/100 WBC (Bld) 2.3 % Normal 0.0-8.0 [facility] Comment on above: Performed By: #### 1 5423518, 0497447, 22104345, 4110457, 7251509, 14023629, 61735830, 1695309 ####[place] [address] Erythrocyte distribution width (RBC) [Ratio] 14.3 % High 10.9-14.2 [facility] Comment on above: Performed By: #### 1 6493241, 7181425, 57504862, 4274136, 8435092, 09081803, 84906492, 4636555 ####[place] [address] Hematocrit (Bld) [Volume fraction] 39.8 % Normal 34.0-46.0 [facility] Comment on above: Performed By: #### 1 9932500, 4981016, 98486321, 9568658, 3124118, 11841629, 00409349, 7711781 ####[place] [address] [address] Hemoglobin (Bld) [Mass/Vol] 13.5 g/dL Normal 12.0-16.0 [facility] Comment on above: Performed By: #### 1 3956973, 8606104, 73747869, 7714804, 6139937, 65874917, 85358217, 5466429 ####[place] [address] Lymphocytes (Bld) [#/Vol] 1.3 E9/L Normal 1.0-4.0 [facility] Comment on above: Performed By: #### 1 8148153, 7052761, 08946305, 3666156, 2924213, 39284832, 20888846, 6855019 ####[address] [address] Lymphocytes/100 WBC (Bld) 46.0 % Normal 14.0-50.0 [facility] Comment on above: Performed By: #### 1 5706223, 6055489, 75713492, 9514232, 6840297, 56212954, 61426407, 3709921 ####[place] [address] MCH (RBC) [Entitic mass] 30.2 pg Normal 27.0-34.0 [facility] Comment on above: Performed By: #### 1 9081156, 9620179, 04489178, 8585226, 2202957, 79202397, 38956680, 7445344 ####[place] [address] MCHC (RBC) [Mass/Vol] 34.0 g/dL Normal 31.4-36.0 [facility] Comment on above: Performed By: #### 1 9565819, 8126589, 14932049, 6550284, 1779631, 62567680, 32748359, 2641148 ####[place] [address] MCV (RBC) [Entitic vol] 88.8 fL Normal 80.0-100.0 [facility] Comment on above: Performed By: #### 1 8482972, 1665185, 02870414, 9940803, 1320606, 56676859, 75877553, 4513620 ####[place] [address] Monocytes (Bld) [#/Vol] 0.2 E9/L Normal 0.2-1.0 Remisol Heme Comment on above: Performed By: #### 1 [id number], 5465309, 57328114, 5729282, 5876355, 87546343, 69539930, 9684577 ####[place] [id number] Neutrophils (Bld) [#/Vol] 1.2 E9/L Low 2.0-7.5 Remisol Heme Comment on above: Performed By: #### 1 [id number], 0295704, 84744589, 0954835, 2757499, 09075685, 13317405, 7887079 ####[place] [id number] Neutrophils/100 WBC (Bld) 42.5 % Normal 36.0-75.0 Remisol Heme Comment on above: Performed By: #### 1 7828938, 7434955, 19912457, 8039207, 0917587, 37803220, 29341064, 1974480 ####[place] [id number] Platelet mean volume (Bld) [Entitic vol] 9.0 fL Normal 6.4-10.8 Remisol Heme Comment on above: Performed By: #### 1 8850391, 7519401, 22970572, 1295951, 1982912, 58433395, 97341680, 5881944 ####[place] [address] [address] [address] Platelets (Bld) [#/Vol] 179.0 E9/L Normal 150.0-500.0 [facility] Comment on above: Performed By: #### 1 0681791, 6102059, 57587518, 7818832, 4554468, 56904671, 46760115, 6468845 ####[place] [id number] RBC (Bld) [#/Vol] 4.5 E12/L Normal 4.3-5.9 [facility] Comment on above: Performed By: #### 1 4963279, 3240070, 33786930, 2512677, 1675421, 93860570, 44933529, 7006023 ####[facility] [address] [place] [address] WBC corrected for nucl RBC Auto (Bld) [#/Vol] 2.8 E9/L Low 4.0-11.0 [facility] Comment on above: Performed By: #### 1 5375256, 7842500, 20499997, 4428715, 2321639, 46236315, 51290787, 8389402 ####[facility] [address] [place] [address] CHEMISTRYOrdered By: SYSTEM SYSTEM on 05-12-2023 Albumin/Globulin [...] 34.7 s Normal 25.1 - 36.5 second(s) [facility] Auto Coag Comment on above: Interpretive Data: [...] the same coagulation reagent and instrumentation as [facility]. Currently there are no coagulation studies available worldwide for children to 14 days, and no normal ranges. Heparin therapeutic range (represented by Anti-Factor Xa activity of 0.2 - 0.4 U/mL) corresponds to PTT of 56.6 - 109.0 sec. PT Coag (PPP) [Time] 13.1 s High 9.4 - 12.5 second(s) [facility] Auto Coag Comment on above: Interpretive Data: [...] the same coagulation reagent and instrumentation as [facility] Currently there are no coagulation studies available worldwide for children to 14 days, and no normal ranges. Consent for Treatmenton 04-16 Consent for Treatment [id number] 68#1.00TIFF Normal [facility] Consultation Noteon 05-12-19 Consultation Note Normal [facility] Comment on above: Result Comment: Elec tronically Signed By: Miguel JOHNSON, Jon Smith\.br\Date and Time Signed: 05/12/23 15:42 EDT ED Clinical Summaryon 2023 ED [facility] 05-12-19 ED Note-Physician Normal [facility] Comment on above: Result Comment: Elec tronically Signed By: Mauricio López PA-C\.br\Date and Time Signed: 05/12/23 12:06 EDT\.br\Electronically Co-Signed By: Mateusz Garcia DO\.br\Date and Time Co-Signed: 05/12/23 12:48 EDT ED Patient Education Noteon 05-12-2023 ED Patient Education Note Normal [facility] ED Patient Summaryon 024 ED Patient Summary Normal [facility] Endoscopic Procedure Report - Otheron 05-12-2023 Endoscopic Procedure Report - Other Normal [facility] Comment on above: Result Comment: Elec tronically Signed By: Miguel JOHNSON, Jon Smith\.br\Date and Time Signed: 05/12/23 15:48 EDT Other Comment: Ramya jordan Attachment - attachment storage system not supported [id number] Can be viewed in source systemMissing Attachment - attachment storage system not supported [id number] Can be viewed in source systemMissing Attachment - attachment storage system not supported [id number] Can be viewed in source systemMissing Attachment - attachment storage system not supported [id number] Can be viewed in source systemMissing Attachment - attachment storage system not supported [id number] Can be viewed in source systemMissing Attachment - attachment storage system not supported [id number] Can be viewed in source systemMissing Attachment - attachment storage system not supported [id number] Can be viewed in source systemMissing Attachment - attachment storage system not supported [id number] Can be viewed in source systemMissing Attachment - attachment storage system not supported [id number] Can be viewed in source system HEMATOLOGYOrdered By: SYSTEM SYSTEM on 05-12-2023 Monocytes/100 WBC (Bld) 8.3 % Normal 4.0 - 14.0 % [facility] Hep Func PanelOrdered By: SY STEM SYSTEM on 05-12-2023 Albumin [Mass/Vol] 4.3 g/dL Normal 3.3-5.0 [facility] l [facility] Comment on above: Performed By: #### 1 0835438, 1246115, 13544789, 7576702, 1310185, 48044416, 73071414, 6895512 ####[place] [address] [address] Bilirubin [Mass/Vol] 0.4 mg/dL Normal 0.0-1.1 [facility] Comment on above: Performed By: #### 1 1490894, 6983246, 01443469, 9736148, 8976843, 60085933, 48829829, 0446379 ####[address] [address] Bilirubin.direct [Mass/Vol] 0.1 mg/dL Normal 0.0-0.4 [facility] Comment on above: Performed By: #### 1 6000777, 0137540, 37344330, 2418887, 9643048, 18328628, 12621129, 5180684 ####[address] [address] Bilirubin.indirect [Mass or moles/Vol] 0.3 mg/dL Normal 0.1-0.9 [facility] Comment on above: Performed By: #### 1 3211221, 9003994, 68683832, 2126957, 0735776, 72461829, 91208559, 3389894 ####[address] [address] Globulin (S) [Mass/Vol] 2.3 g/dL Normal 1.4-4.0 [facility] Comment on above: Performed By: #### 1 6318882, 0298678, 72056744, 5637814, 0284105, 03054418, 24246094, 7251179 ####[address] [address] Protein [Mass/Vol] 6.6 g/dL Normal 6.0-7.8 [facility] l [facility] Comment on above: Performed By: #### 1 0384642, 9770240, 46802203, 8199247, 4579811, 40162991, 34593535, 2064624 ####[address] [address] Hep Func Panelon 05-12-2023 Albumin/Globulin (S) [Mass conc ratio] 1.9 Normal 1.1-2.2 [facility] Comment on above: Performed By: #### 1 0820079, 5772584, 15260241, 5543639, 7377577, 88755859, 61215970, 0190684 ####[facility] [address] [place] [address] ALP [Catalytic activity/Vol] 58 Int._Unit/L Normal 21-98 [facility] Comment on above: Performed By: #### 1 0034169, 2248240, 66007318, 1256879, 9002477, 42759389, 53727572, 2766602 ####[facility] [address] [place] [address] ALT No additional P-5'-P [Catalytic activity/Vol] 14 Int._Unit/L Normal 6-46 [facility] Comment on above: Performed By: #### 1 7928076, 8938017, 45953341, 0193921, 9022217, 99690775, 97461499, 6006630 ####[facility] [address] [place] [address] AST [Catalytic activity/Vol] 26 Int._Unit/L Normal 5-43 [facility] Comment on above: Performed By: #### 1 8032208, 9045782, 01296094, 0607633, 3095373, 60051319, 12144416, 2768488 ####[place] [address] [place] [address] Interdisciplinary Note - Taz e Manageron 05-12-2023 Interdisciplinary Note - [employer] [facility] Comment on above: Result Comment: Elec tronically Signed By: Kera Diehl\.br\Date and Time Signed: 05/12/23 15:40 EDT Lipase LevelOrdered By: SYST EM SYSTEM on 05-12-2023 Lipase [Catalytic activity/Vol] 35 U/L Normal 13-58 [facility] Comment on above: Performed By: #### 1 5182593, 2451372, 15980549, 0720484, 6797738, 90271639, 72460066, 4615463 ####[facility] [address] [place] [address] Main OR PACU I Recordon 04-16 Main OR PACU I Record Normal [facility] Main OR Preoperative Recordo n 05-12-2023 Main OR Preoperative Record Normal [facility] Monitor Recordon 05-12-2023 Monitor Record [id number]#1.00TIFF Normal [facility] Monitor Record [id number]#1.00TIFF Normal [facility] Monitor Record [id number]#1.00TIFF Normal [facility] PT & PTTon 05-12-2023 aPTT Coag (PPP) [Time] 34.7 second(s) Normal 25.1-36.5 [facility] Comment on above: Result Comment: Para meter [...] the same coagulation reagent and instrumentation as [facility] Currently there are no coagulation studies available worldwide for children to 14 days, and no normal ranges. Heparin therapeutic range (represented by Anti-Factor Xa activity of 0.2 - 0.4 U/mL) corresponds to PTT of 56.6 - 109.0 sec. Performed By: #### 1 3623645, 0786230, 90187220, 6640547, 0781460, 49471585, 37566341, 6615847 ####[facility] [address] [place] [address] PT Coag (PPP) [Time] 13.1 second(s) High 9.4-12.5 [facility] Comment on above: Result Comment: 15 d [...] the same coagulation reagent and instrumentation as [facility]. Currently there are no coagulation studies available worldwide for children to 14 days, and no normal ranges. Performed By: #### 1 9059471, 1217930, 70458941, 5899684, 9559651, 35488514, 98244474, 6598846 ####[facility] [address] [place] [address] PT & PTTOrdered By: Shannon cutler on 05-12-2023 INR Coag (PPP) [Relative time] 1.17 {INR} Invalid Interpretation Code [facility] Auto Coag Comment on above: Interpretive Data: [...] 3.0 ? 4.5 Performed By: #### 1 4619825, 7911513, 53287104, 4649430, 2605430, 82377197, 42237997, 5214843 ####[facility] [address] [place] [address] Provider Letteron 05-12-2023 Provider Letter [facility] SEROLOGYOrdered By: Shannon cutler on 05-12-2023 Beta HCG ( test) Ql Negative (05/12/23 10:00 AM) Normal [facility] Man Sero Troponin 0 Hr.on 05-12-2023 Troponin I.cardiac [Mass/Vol] ng/mL Low 10.10-27.10 [facility] Comment on above: Result Comment: The 95% CI (Confidence Interval) PPV (Positive Predictive Value) for myocardial infarction in females is 38 pg/mL, in males 51 pg/mL. The results should be used in conjunction with clinical conditions of myocardial infarction.(Access High Sensitivity Troponin I Instructions For Use, Alan [place], September 2017) Performed By: #### 1 9246035, 9109058, 25213971, 1847954, 2287896, 66665531, 31762135, 3404844 ####[facility] [address] [place] [address] eGFROrdered By: SYSTEM [employer] on 05-12-2023 eGFR 76 mL/min/1.73 m2 Normal >=59 [facility] Comment on above: Order Comment: Order added by Discern Expert. Performed By: #### 1 5025742, 9097966, 11837381, 3354882, 0091146, 82428480, 47748415, 7572646 ####[facility] [address] [place] [address] CBC w/ Auto Diffon 4 Basophils/100 WBC (Bld) 0.7 % Normal 0.0-2.0 [facility] Comment on above: Performed By: #### 2 848614, 0601864, 48335229, 7484022, 1492629, 0242904 ####[facility] [address] [place] [address] Basophils/Leukocyte s Auto (Bld) [Pure # fraction] 0.0 E9/L Normal 0.0-0.2 [facility] Comment on above: Performed By: #### 2 887390, 1035320, 31273324, 7899335, 5019603, 6329288 ####[facility] [address] [place] [address] Eosinophils (Bld) [#/Vol] 0.0 E9/L Normal 0.0-0.5 [facility] Comment on above: Performed By: #### 2 998296, 8010672, 05392477, 3534317, 6161444, 3421295 ####[address] [place] [address] Eosinophils/100 WBC (Bld) 1.5 % Normal 0.0-8.0 [facility] Comment on above: Performed By: #### 2 301518, 1666728, 00250558, 5214540, 0875108, 0617743 ####[place] [address] [place] [address] Erythrocyte distribution width (RBC) [Ratio] 14.6 % High 10.9-14.2 [facility] Comment on above: Performed By: #### 2 213820, 3554574, 82992157, 1753407, 9362137, 1630244 ####[address] [address] Hematocrit (Bld) [Volume fraction] 38.7 % Normal 34.0-46.0 [facility] Comment on above: Performed By: #### 2 236346, 9644635, 44083478, 7748459, 1147544, 9758641 ####[address] [address] Hemoglobin (Bld) [Mass/Vol] 13.2 g/dL Normal 12.0-16.0 [facility] Comment on above: Performed By: #### 2 998485, 7226763, 32251665, 0344835, 7114087, 9068455 ####[place] [address] [place] [address] Lymphocytes (Bld) [#/Vol] 1.3 E9/L Normal 1.0-4.0 [facility] Comment on above: Performed By: #### 2 462732, 9174814, 44644149, 1859568, 0396473, 0283528 ####[address] [address] Lymphocytes/100 WBC (Bld) 48.6 % Normal 14.0-50.0 [facility] Comment on above: Performed By: #### 2 729734, 7081535, 49426562, 3138825, 1910991, 5665644 ####[address] [address] MCH (RBC) [Entitic mass] 30.3 pg Normal 27.0-34.0 [facility] Comment on above: Performed By: #### 2 008198, 0029132, 91144255, 0218020, 6293806, 2657446 ####[address] [address] MCHC (RBC) [Mass/Vol] 34.2 g/dL Normal 31.4-36.0 [facility] Comment on above: Performed By: #### 2 317779, 6053647, 12077152, 3656070, 0274557, 7491624 ####[address] [address] MCV (RBC) [Entitic vol] 88.6 fL Normal 80.0-100.0 [facility] Comment on above: Performed By: #### 2 338686, 0174286, 35566022, 4003610, 0694620, 8017401 ####[address] [address] Monocytes (Bld) [#/Vol] 0.2 E9/L Normal 0.2-1.0 [facility] Comment on above: Performed By: #### 2 564973, 9674193, 62717844, 7632904, 1822636, 7533338 ####[address] [address] Neutrophils (Bld) [#/Vol] 1.1 E9/L Low 2.0-7.5 [facility] Comment on above: Performed By: #### 2 924306, 6685291, 36469225, 2999023, 3672371, 7081213 ####[facility] [address] [place] [address] Neutrophils/100 WBC (Bld) 40.2 % Normal 36.0-75.0 [facility] Comment on above: Performed By: #### 2 728248, 8830872, 39104256, 7718640, 6817655, 1947788 ####[place] [address] [place] [address] Platelet mean volume (Bld) [Entitic vol] 9.2 fL Normal 6.4-10.8 [facility] Comment on above: Performed By: #### 2 226203, 3531190, 85945562, 9946194, 9369654, 9403647 ####[address] [address] Platelets (Bld) [#/Vol] 195.0 E9/L Normal 150.0-500.0 [facility] Comment on above: Performed By: #### 2 524747, 4781032, 31487888, 4170349, 8050587, 2410736 ####[address] [address] RBC (Bld) [#/Vol] 4.4 E12/L Normal 4.3-5.9 [facility] Comment on above: Performed By: #### 2 630143, 1846106, 49340357, 5541582, 6426678, 4369148 ####[place] [place] [address] WBC corrected for nucl RBC Auto (Bld) [#/Vol] 2.7 E9/L Low 4.0-11.0 [facility] Comment on above: Performed By: #### 2 622227, 5302165, 76748795, 3083105, 2230577, 7105470 ####[place] [address] [place] [address] CHEMISTRYOrdered By: SYSTEM SYSTEM on 05-11-2023 Amphetamines [...] Alternate Method called to Maribel Ortega by [id number] Interpretive Data: N egative Cutoff: <300 ng/mL [...] 05-11-2023 Albumin [Mass/Vol] 4.6 g/dL Normal 3.3-5.0 [facility] Comment on above: Performed By: #### 2 202533, 7649768, 91412589, 4921250, 1146824, 2325053 ####[facility] [address] [place] [address] Albumin/Globulin (S) [Mass conc ratio] 1.8 Normal 1.1-2.2 [facility] Comment on above: Performed By: #### 2 966815, 9068540, 84253413, 9675695, 3865281, 3193102 ####[place] [address] [place] [address] ALP [Catalytic activity/Vol] 60 Int._Unit/L Normal 21-98 [facility] Comment on above: Performed By: #### 2 221329, 8049703, 77128063, 9762519, 6739680, 7691742 ####[facility] [address] [place] [address] ALT No additional P-5'-P [Catalytic activity/Vol] 14 Int._Unit/L Normal 6-46 [facility] Comment on above: Performed By: #### 2 660931, 7529395, 26912273, 4731516, 0448965, 0121181 ####[facility] [address] [place] [address] Anion gap [Moles/Vol] 15 mmol/L Normal 6-16 [facility] Comment on above: Performed By: #### 2 281809, 2069781, 97592083, 9160440, 3806403, 5151544 ####[facility] [address] [place] [address] AST [Catalytic activity/Vol] 25 Int._Unit/L Normal 5-43 [facility] Comment on above: Performed By: #### 2 329872, 3743673, 61119572, 7410186, 1298955, 8342619 ####[facility] [place] [address] Bilirubin [Mass/Vol] 0.5 mg/dL Normal 0.0-1.1 [facility] Comment on above: Performed By: #### 2 573723, 5457105, 59537662, 8242451, 5019655, 2853798 ####[facility] [address] [place] [address] Calcium [Mass/Vol] 9.4 mg/dL Normal 8.9-11.1 [facility] Comment on above: Performed By: #### 2 004491, 2649560, 58100079, 1338983, 9452806, 7968503 ####[facility] [address] [place] [address] Chloride [Moles/Vol] 104 mmol/L Normal 101-111 [facility] Comment on above: Performed By: #### 2 587699, 8987018, 93982677, 0002151, 2213251, 7138031 ####[facility] [address] [place] [address] CO2 [Moles/Vol] 23 mmol/L Normal 21-31 [facility] Comment on above: Performed By: #### 2 930945, 6681857, 07392888, 3394059, 0013348, 8581665 ####[facility] [address] [place] [address] Creatinine [Mass/Vol] 0.8 mg/dL Normal 0.5-1.3 [facility] Comment on above: Performed By: #### 2 868994, 4505511, 92805320, 1300220, 1172582, 9744934 ####[facility] [address] [place] [address] Globulin (S) [Mass/Vol] 2.5 g/dL Normal 1.4-4.0 [facility] Comment on above: Performed By: #### 2 474599, 8109510, 50013243, 3070048, 0606477, 1525314 ####[facility] [address] [place] [address] Glucose [Mass/Vol] 80 mg/dL Normal 55-199 [facility] Comment on above: Performed By: #### 2 105738, 9670519, 90642583, 4893353, 2707214, 5561626 ####[facility] [address] [place] [address] Potassium [Moles/Vol] 3.6 mmol/L Normal 3.5-5.3 [facility] Comment on above: Performed By: #### 2 451800, 7290749, 35622245, 2961353, 0390270, 3690964 ####[facility] [address] [place] [address] Protein [Mass/Vol] 7.1 g/dL Normal 6.0-7.8 [facility] Comment on above: Performed By: #### 2 131128, 8551625, 41598786, 1272925, 3416707, 9198834 ####[facility] [address] [place] [address] Sodium [Moles/Vol] 138 mmol/L Normal 135-145 [facility] Comment on above: Performed By: #### 2 605261, 0511286, 73362412, 8262277, 3822621, 7065254 ####[facility] [address] [place] [address] Urea nitrogen [Mass/Vol] 9 mg/dL Normal 5-21 [facility] Comment on above: Performed By: #### 2 004780, 3049611, 75406372, 4017425, 5139551, 7717782 ####[facility] [address] [place] [address] Urea nitrogen/Creatinine [Mass ratio] 11 No Units Normal 10-20 [facility] Comment on above: Performed By: #### 2 658208, 2432547, 60882894, 6257359, 8747840, 7166030 ####[facility] [address] [place] [address] CT Abdomen/Pelvis w/o Contra ston 05-11-2023 CT Abdomen/Pelvis w/o Contrast Normal [facility] Consent for Treatmenton 04-16 Consent for Treatment [id number] 37#1.00TIFF Normal [facility] Discharge Instructionson Discharge Instructions [id number]#1.00TIFF Normal [facility] ED Clinical Summaryon 2023 ED Clinical Summary Normal [facility] ED Note-Physicianon 05-11-19 ED Note-Physician Normal [facility] Comment on above: Result Comment: Elec tronically Signed By: Tiffani Cunningham PA-C\.br\Date and Time Signed: 05/11/23 17:06 EDT\.br\Electronically Co-Signed By: Mateusz Garcia DO\.br\Date and Time Co-Signed: 05/11/23 20:41 EDT ED Patient Education Noteon 05-11-2023 ED Patient Education Note Normal [facility] ED Patient Summaryon 024 ED Patient Summary Normal [facility] HEMATOLOGYOrdered By: SYSTEM SYSTEM on 05-11-2023 Basophils/100 [...] Lactic Acid Lvl 0.6 mmol/L Normal 0.5-2.2 [facility] Comment on above: Performed By: #### 2 588335, 7307777, 93039202, 1700404, 4550026, 2827636 ####[facility] [address] [place] [address] Lipase Levelon 05-11-2023 Lipase [Catalytic activity/Vol] 34 U/L Normal 13-58 [facility] Comment on above: Performed By: #### 2 874272, 4180173, 06556923, 1236622, 3214535, 2822299 ####[facility] [address] [place] [address] Magnesiumon 05-11-2023 Magnesium [Mass/Vol] 2.1 mg/dL Normal 1.3-2.4 [facility] Comment on above: Performed By: #### 2 601805, 3345241, 20063566, 6766500, 0497633, 1650285 ####[facility] [address] [place] [address] SEROLOGYOrdered By: Olga Meng on 05-11-2023 HCG.beta subunit (U) [Moles/Vol] Negative Normal [facility] Man Sero U BetaHcg Qualon 05-11-2023 HCG.beta subunit (U) [Moles/Vol] Negative Normal [facility] Comment on above: Performed By: #### 4 613932705, 93439131 ####[facility] [address] [place] [address] U Drug Screenon 05-11-2023 Amphetamines Screen method >1000 ng/mL Ql (U) Negative Normal NEGATIVE [facility] Comment on above: Result Comment: Nega tive Cutoff: <1000 ng/mL Performed By: #### 2 767678 ####[facility] [address] [place] [address] Barbiturates Screen Ql (U) Negative Normal NEGATIVE [facility] Comment on above: Result Comment: Nega tive Cutoff: <200 ng/mL Performed By: #### 2 385807 ####[facility] [address] [place] [address] Benzodiazepines Ql (U) Negative Normal NEGATIVE [facility] Comment on above: Result Comment: Nega tive Cutoff: <200 ng/mL Performed By: #### 2 922619 ####[facility] [address] [place] [address] Cannabinoids Screen Ql (U) Positive Abnormal NEGATIVE [facility] Comment on above: Result Comment: No C onfirmation Requested by PhysicianResult Verified by Repeat AnalysisUnconfirmed by an Alternate Methodcalled to Maribel Ortega by MIRYAM at 1404Negative Cutoff: <50 ng/mL Performed By: #### 2 753604 ####[facility] [address] [place] [address] Cocaine Ql (U) Negative Normal NEGATIVE [facility] Comment on above: Result Comment: Nega tive Cutoff: <300 ng/mL Performed By: #### 2 974331 ####[facility] [address] [place] [address] Opiates Screen Ql (U) Positive Abnormal NEGATIVE [facility] Comment on above: Result Comment: No C onfirmation Requested by PhysicianResult Verified by Repeat AnalysisUnconfirmed by an Alternate Methodcalled to Maribel Ortega by MIRYAM [id number] Cutoff: <300 ng/mL Performed By: #### 2 623496 ####[facility] [address] [place] [address] Phencyclidine Screen method >25 ng/mL Ql (U) Negative Normal NEGATIVE [facility] Comment on above: Result Comment: Nega tive Cutoff: <25 ng/mLThese drug screen results are to be used for medical (i.e., treatment) purposes only. Unconfirmed drug screening results must not be used for non-medical purposes (e.g., employment testing, legal testing). Performed By: #### 2 127305 ####[facility] [address] [place] [address] UA with Cult Rflxon 05-11-19 24 Color (U) Light-Yellow Normal Yellow [facility] Comment on above: Result Comment: Micr oscopic readings are only performed on those samples that meet specific criteria set forth by [facility]. Performed By: #### 4 [id number], 14852393 ####[facility] [address] [place] [address] Glucose (U) [Mass/Vol] Negative Normal Negative [facility] Comment on above: Performed By: #### 4 [id number], 18590188 ####[facility] [address] [facility] [place] [place] [address] Ketones Ql (U) Negative Normal Negative [facility] Comment on above: Performed By: #### 4 931289030, 34682347 ####[facility] [address] [place] [address] UA Blood Negative Normal Negative [facility] Comment on above: Performed By: #### 4 722442502, 58848168 ####[facility] [address] [place] [address] UA Clarity Clear Normal Clear [facility] Comment on above: Performed By: #### 4 337634579, 38520354 ####[facility] [address] [place] [address] UA Leuk Est Negative Normal Negative [facility] Comment on above: Performed By: #### 4 876120898, 44295560 ####[facility] [address] [place] [address] UA Nitrite Negative Normal Negative [facility] Comment on above: Performed By: #### 4 721611094, 86812303 ####[facility] [address] [place] [address], [place] [address] UA pH 7.5 Invalid Interpretation Code 5.0-9.0 [facility] Comment on above: Performed By: #### 4 [id number], [id number] ####[facility] [address] [place] [address] UA Protein Negative Normal Negative [facility] Comment on above: Performed By: #### 4 [id number], [id number] ####[facility] [address] [place] [address] UA Spec Grav 1.010 Invalid Interpretation Code 1.005-1.030 [facility] Comment on above: Performed By: #### 4 [id number], [id number] ####[facility] [address] [place] [address] UA Urobilinogen Negative Normal Negative [facility] Comment on above: Performed By: #### 4 [id number], [id number] ####[facility] [address] [place] [address] Urobilinogen (U) [Mass/Vol] Negative Normal Negative [facility] Comment on above: Performed By: #### 4 [id number], [id number] ####[facility] [address] [place] [address] UA Spec Desc Clean Catch Normal [facility] Comment on above: Performed By: #### 4 [id number], [id number] ####[facility] [address] [place] [address] URINALYSISOrdered By: SYSTEM SYSTEM on 05-11-2023 Color (U) Light-Yellow 3 (05/11/23 12:41 PM) Normal Yellow FT UA Auto SS Comment on above: Interpretive Data: M icroscopic readings are only performed on those samples that meet specific criteria set forth by [facility]. Glucose (U) [Mass/Vol] Negative Normal Negativemg/dL [...] PM) Invalid Interpretation Code 5.0 - 9.0 [facility] UA Auto SS UA Protein Negative Normal Negativemg/dL [facility] UA Aut o SS UA Spec Grav 1.010 *NA* (05/11/23 12:41 PM) Invalid Interpretation Code 1.005 - 1.030 FT UA Auto SS UA Urobilinogen Negative Normal Negativemg/dL FT U A Auto SS Urobilinogen (U) [Mass/Vol] Negative Normal Negativemg/dL FT UA Auto SS URINALYSISOrdered By: Tiffani Cunningham on 05-11-2023 UA Spec Desc Clean Catch (05/11/23 12:41 PM) Normal [facility] UA Auto SS eGFRon 05-11-2023 eGFR 99 mL/min/1.73 m2 Normal >=59 [facility] Comment on above: Order Comment: Order added by Discern Expert. Performed By: #### 2 475806, 5274630, 43236967, 8347584, 1663520, 7548692 ####[facility] [address] [place] [address] Ambulatory Visit Summaryon 0 05-10-2023 Ambulatory Visit Summary Normal [address] [facility] [place] [address]- \.br\ Medications\.br\ What How Much When Why [...] for choosing us for your care.\.br\ \.br\ [facility] CNPNon 05-10-2023 CNPN Normal [facility] Office/Clini c Noteon 05-10-2023 Family Medicine Office/Clinic Note Normal [facility] Comment on above: Result Comment: Elec tronically Signed By: Jaquan Paula\.br\Date and Time Signed: 05/10/23 14:35 EDT [facility] 2023 Home Health Records [id number] 80#1.00TIFF Normal [facility] Provider Letteron 05-10-2023 Provider Letter Normal [facility] B hCG Qualon 05-09-2023 Beta HCG ( test) Ql Negative Normal [facility] Comment on above: Performed By: #### 1 9044563, 13738892, 6965574, 5051236, 7377675, 6588371 ####[facility] [address] [facility] [place] [address] BMPon 05-09-2023 Anion gap [Moles/Vol] 12 mmol/L Normal 6-16 [facility] Comment on above: Performed By: #### 1 4847025, 69010994, 6401535, 8552763, 2000263, 6538391 ####[facility] [address] [place] [address] Calcium [Mass/Vol] 8.6 mg/dL Low 8.9-11.1 [facility] Comment on above: Performed By: #### 1 8850484, 32561838, 7777654, 6134451, 1847910, 0614269 ####[facility] [address] [place] [address] Chloride [Moles/Vol] 109 mmol/L Normal 101-111 [facility] Comment on above: Performed By: #### 1 2851234, 08491426, 0290726, 4239578, 6780621, 0165879 ####[facility] [address] [place] [address] CO2 [Moles/Vol] 23 mmol/L Normal 21-31 [facility] Comment on above: Performed By: #### 1 2669218, 81114182, 3073928, 0443227, 1527271, 0196747 ####[facility] [address] [place] [address] Creatinine [Mass/Vol] 0.8 mg/dL Normal 0.5-1.3 [facility] Comment on above: Performed By: #### 1 8960489, 46168526, 7920508, 2848046, 3744284, 7110851 ####[address] [place] [address] Glucose [Mass/Vol] 79 mg/dL Normal 55-199 [facility] Comment on above: Performed By: #### 1 1795402, 20185647, 0993076, 8639148, 2186780, 7027456 ####[facility] [address] [place] [address] Potassium [Moles/Vol] 3.9 mmol/L Normal 3.5-5.3 [facility] Comment on above: Performed By: #### 1 8688977, 67508317, 2645824, 0093301, 7202088, 0583350 ####[facility] [address] [place] [address] Sodium [Moles/Vol] 140 mmol/L Normal 135-145 [facility] Comment on above: Performed By: #### 1 8994809, 64368091, 0153882, 3180057, 6584369, 4624099 ####[address] [place] [address] Urea nitrogen [Mass/Vol] 9 mg/dL Normal 5-21 [facility] Comment on above: Performed By: #### 1 2975467, 80780855, 5584528, 7908629, 4112479, 9807870 ####[address] [place] [address] Urea nitrogen/Creatinine [Mass ratio] 11 No Units Normal 10-20 [facility] Comment on above: Performed By: #### 1 9758810, 97400717, 5590806, 5374790, 7625423, 5237515 ####[address] [address] CBC w/ Auto Diffon 4 Basophils/100 WBC (Bld) 1.1 % Normal 0.0-2.0 [facility] Comment on above: Performed By: #### 1 0711177, 82256866, 4630515, 3838510, 5550362, 0113328 ####[address] [address] Basophils/Leukocyte s Auto (Bld) [Pure # fraction] 0.0 E9/L Normal 0.0-0.2 [facility] Comment on above: Performed By: #### 1 1794200, 00645588, 2689454, 1612107, 1841803, 7625690 ####[address] [address] Eosinophils (Bld) [#/Vol] 0.1 E9/L Normal 0.0-0.5 [facility] Comment on above: Performed By: #### 1 2378422, 13801976, 6643651, 2531144, 0522217, 1964358 ####[address] [address] Eosinophils/100 WBC (Bld) 2.1 % Normal 0.0-8.0 [facility] Comment on above: Performed By: #### 1 3323959, 61603879, 9407474, 2273160, 0102748, 3645011 ####[address] [address] Erythrocyte distribution width (RBC) [Ratio] 14.4 % High 10.9-14.2 [facility] Comment on above: Performed By: #### 1 7947836, 16329669, 5292731, 3094722, 6235152, 2967166 ####[address] [place] [address] Hematocrit (Bld) [Volume fraction] 36.3 % Normal 34.0-46.0 [facility] Comment on above: Performed By: #### 1 8961954, 78143166, 3888556, 7049990, 4832806, 2037882 ####[address] [place] [address] Hemoglobin (Bld) [Mass/Vol] 12.3 g/dL Normal 12.0-16.0 [facility] Comment on above: Performed By: #### 1 1414903, 78669446, 3829405, 8924419, 9460235, 0154006 ####[address] [address] Lymphocytes (Bld) [#/Vol] 1.2 E9/L Normal 1.0-4.0 [facility] Comment on above: Performed By: #### 1 2045993, 60807455, 6805184, 4131495, 9495792, 9004134 ####[address] [address] Lymphocytes/100 WBC (Bld) 42.2 % Normal 14.0-50.0 [facility] Comment on above: Performed By: #### 1 3898655, 76814268, 5766535, 0858007, 6945041, 6842565 ####[address] [address] MCH (RBC) [Entitic mass] 30.2 pg Normal 27.0-34.0 [facility] Comment on above: Performed By: #### 1 6090442, 77368867, 1911894, 5791749, 6061758, 4050100 ####[address] [address] MCHC (RBC) [Mass/Vol] 33.9 g/dL Normal 31.4-36.0 [facility] Comment on above: Performed By: #### 1 1534646, 72596770, 2774672, 2127328, 9467660, 4201118 ####[address] [address] MCV (RBC) [Entitic vol] 89.2 fL Normal 80.0-100.0 [facility] Comment on above: Performed By: #### 1 8685726, 60992511, 0949777, 4734041, 3274719, 5697840 ####[address] [address] Monocytes (Bld) [#/Vol] 0.3 E9/L Normal 0.2-1.0 [facility] Comment on above: Performed By: #### 1 1656652, 85533574, 3913716, 2383586, 7191198, 2523821 ####[address] [address] Neutrophils (Bld) [#/Vol] 1.2 E9/L Low 2.0-7.5 [facility] Comment on above: Performed By: #### 1 3825381, 00713303, 1525361, 7329980, 3787195, 1880461 ####[address] [address] Neutrophils/100 WBC (Bld) 44.3 % Normal 36.0-75.0 [facility] Comment on above: Performed By: #### 1 8581134, 56290702, 7406797, 7856200, 2345750, 1167343 ####[address] [address] Platelet 201.0 E9/L Normal 150.0-500.0 [facility] Comment on above: Performed By: #### 1 0452434, 48400901, 5332281, 7746949, 9323249, 3948044 ####[address] [address] Platelet mean volume (Bld) [Entitic vol] 9.8 fL Normal 6.4-10.8 [facility] Comment on above: Performed By: #### 1 8629835, 97536894, 8081582, 3508141, 9494673, 3813003 ####[facility] [address] [place] [address] RBC (Bld) [#/Vol] 4.1 E12/L Low 4.3-5.9 [facility] Comment on above: Performed By: #### 1 6357823, 43380772, 4705607, 3663258, 0339273, 9051059 ####[facility] [address] [place] [address] WBC corrected for nucl RBC Auto (Bld) [#/Vol] 2.8 E9/L Low 4.0-11.0 [facility] Comment on above: Performed By: #### 1 1912843, 69999633, 3519376, 0534267, 2863918, 1112102 ####[facility] [address] [place] [address] CHEMISTRYOrdered By: SYSTEM SYSTEM on 05-09-2023 Albumin [...] for Treatmenton 04-16 Consent for Treatment [id number] E0#1.00TIFF Normal [facility] Discharge Instructionson Discharge Instructions [id number] 14#1.00TIFF Normal [facility] ED Clinical Summaryon 2023 ED Clinical Summary Normal [facility] ED Note-Nursingon 05-09-2023 ED Note-Nursing Discharge materials given, wheeled patient out. Home with family care. Normal [facility] ED Note-Physicianon 05-09-19 ED Note-Physician Normal [facility] Comment on above: Result Comment: Elec tronically Signed By: Blanca QUIROZ, Lonnie\.br\Date and Time Signed: 05/09/23 15:52 EDT\.br\Electronically Co-Signed By: Mateusz Garcia DO\.br\Date and Time Co-Signed: 05/09/23 17:19 EDT ED Patient Education Noteon 05-09-2023 ED Patient Education Note Normal [facility] ED Patient Summaryon ED Patient Summary Normal [facility] HEMATOLOGYOrdered By: SYSTEM SYSTEM on 05-09-2023 Basophils/100 [...] 05-09-2023 Albumin [Mass/Vol] 4.3 g/dL Normal 3.3-5.0 [facility] Comment on above: Performed By: #### 1 6528055, 18573329, 6299540, 2689847, 8200044, 9934673 ####[facility] [address] [place] [address] Albumin/Globulin (S) [Mass conc ratio] 1.8 Normal 1.1-2.2 [facility] Comment on above: Performed By: #### 1 0793152, 95198447, 4565334, 4798212, 3760495, 2829390 ####[facility] [address] [place] [address] ALP [Catalytic activity/Vol] 51 Int._Unit/L Normal 21-98 [facility] Comment on above: Performed By: #### 1 5241590, 00532199, 0123071, 0497689, 6614426, 5416859 ####[facility] [address] [place] [address] ALT No additional P-5'-P [Catalytic activity/Vol] 15 Int._Unit/L Normal 6-46 [facility] Comment on above: Performed By: #### 1 3854965, 44253330, 2586583, 9699693, 0158925, 2252954 ####[facility] [address] [place] [address] AST [Catalytic activity/Vol] 26 Int._Unit/L Normal 5-43 [facility] Comment on above: Performed By: #### 1 6463266, 54261381, 6203103, 4035083, 6691465, 1899292 ####[address] [place] [address] Bilirubin [Mass/Vol] 0.3 mg/dL Normal 0.0-1.1 [facility] Comment on above: Performed By: #### 1 5735290, 35518570, 5891510, 8131064, 8503387, 6858470 ####[address] [address] Bilirubin.direct [Mass/Vol] 0.1 mg/dL Normal 0.0-0.4 [facility] Comment on above: Performed By: #### 1 2969400, 61753392, 7370614, 2345851, 8174524, 7633161 ####[address] [address] Bilirubin.indirect [Mass or moles/Vol] 0.2 mg/dL Normal 0.1-0.9 [facility] Comment on above: Performed By: #### 1 7674326, 11515910, 4304265, 3742544, 7571335, 3084860 ####[address] [address] Globulin (S) [Mass/Vol] 2.4 g/dL Normal 1.4-4.0 [facility] Comment on above: Performed By: #### 1 6026003, 12949272, 4553335, 7200190, 9619325, 4077809 ####[address] [address] Protein [Mass/Vol] 6.7 g/dL Normal 6.0-7.8 [facility] Comment on above: Performed By: #### 1 1254690, 60158822, 8901987, 1212023, 2360578, 7640239 ####[facility] [address] [place] [address] Lipase Levelon 05-09-2023 Lipase [Catalytic activity/Vol] 68 U/L High 13-58 [facility] Comment on above: Performed By: #### 1 9630951, 94102199, 3869593, 4988520, 0364055, 6093858 ####[facility] [address] [place] [address] SEROLOGYOrdered By: Stacia Arroyo on 05-09-2023 Beta HCG ( test) Ql Negative (05/09/23 12:12 PM) Normal [facility] eGFRon 05-09-2023 eGFR 99 mL/min/1.73 m2 Normal >=59 [facility] Comment on above: Order Comment: Order added by Discern Expert. Performed By: #### 1 7390904, 85854638, 2610441, 0641115, 1204005, 2977864 ####[facility] [address] [place] [address] CNPNon 05-07-2023 CNPN Normal [facility] ED Note-Physicianon 05-07-19 ED Note-Physician Normal [facility] Comment on above: Result Comment: Elec tronically Signed By: Justine German PA-C\.br\Date and Time Signed: 05/06/23 21:25 EDT\.br\Electronically Co-Signed By: Mateusz Garcia DO\.br\Date and Time Co-Signed: 05/07/23 07:00 EDT Amylaseon 05-06-2023 Amylase [Catalytic activity/Vol] 40 U/L Normal 25-157 [facility] Comment on above: Order Comment: pt wa s poked once, pt extremely dehydrated and would like to wait for IV start [id number] 05/06/2023 16:33:00 EDT Performed By: #### 2 601011, 1458418, 5117599, 9329515, 28783344, 6904898, 2459810 ####[facility] [address] [place] [address] BMPon 05-06-2023 Anion gap [Moles/Vol] 13 mmol/L Normal 6-16 [facility] Comment on above: Order Comment: pt lillian cruz poked once, pt extremely dehydrated and would like to wait for IV start [id number] 05/06/2023 16:33:00 EDT Performed By: #### 2 291544, 8038338, 4534676, 9328187, 38074820, 0122404, 1293719 ####[facility] [address] [place] [address] Calcium [Mass/Vol] 9.1 mg/dL Normal 8.9-11.1 [facility] Comment on above: Order Comment: pt lillian cruz poked once, pt extremely dehydrated and would like to wait for IV start [id number] 05/06/2023 16:33:00 EDT Performed By: #### 2 424217, 2237336, 6162753, 1391742, 19270174, 5729530, 1028553 ####[facility] [address] [place] [address] Chloride [Moles/Vol] 107 mmol/L Normal 101-111 [facility] Comment on above: Order Comment: pt lillian cruz poked once, pt extremely dehydrated and would like to wait for IV start [id number] 05/06/2023 16:33:00 EDT Performed By: #### 2 459227, 4265954, 5447129, 5066188, 02996470, 9654694, 9444206 ####[facility] [address] [place] [address] CO2 [Moles/Vol] 22 mmol/L Normal 21-31 [facility] Comment on above: Order Comment: pt lillian cruz poked once, pt extremely dehydrated and would like to wait for IV start [id number] 05/06/2023 16:33:00 EDT Performed By: #### 2 971857, 3290653, 4951312, 7640233, 00719584, 7698484, 3159289 ####[facility] [address] [place] [address] Creatinine [Mass/Vol] 0.8 mg/dL Normal 0.5-1.3 [facility] Comment on above: Order Comment: pt lillian cruz poked once, pt extremely dehydrated and would like to wait for IV start [id number] 05/06/2023 16:33:00 EDT Performed By: #### 2 598523, 3499807, 7194684, 1899783, 36800115, 1890765, 6356059 ####[facility] [address] [place] [address] Glucose [Mass/Vol] 80 mg/dL Normal 55-199 [facility] Comment on above: Order Comment: pt lillian cruz poked once, pt extremely dehydrated and would like to wait for IV start [id number] 05/06/2023 16:33:00 EDT Performed By: #### 2 328893, 0691424, 0096494, 3624200, 06919279, 5036110, 2579463 ####[facility] [address] [place] [address] Potassium [Moles/Vol] 3.7 mmol/L Normal 3.5-5.3 [facility] Comment on above: Order Comment: pt lillian cruz poked once, pt extremely dehydrated and would like to wait for IV start [id number] 05/06/2023 16:33:00 EDT Performed By: #### 2 122826, 4110180, 4114314, 0029217, 90197527, 3794121, 5063988 ####[facility] [address] [place] [address] Sodium [Moles/Vol] 138 mmol/L Normal 135-145 [facility] Comment on above: Order Comment: pt lillian cruz poked once, pt extremely dehydrated and would like to wait for IV start [id number] 05/06/2023 16:33:00 EDT Performed By: #### 2 703202, 9019538, 7536144, 3205897, 53910458, 8499113, 2065986 ####[facility] [address] [place] [address] Urea nitrogen [Mass/Vol] 10 mg/dL Normal 5-21 [facility] Comment on above: Order Comment: pt lillian cruz poked once, pt extremely dehydrated and would like to wait for IV start [id number] 05/06/2023 16:33:00 EDT Performed By: #### 2 621502, 3083585, 5982861, 6369269, 53037283, 4765485, 9518057 ####[facility] [address] [place] [address] Urea nitrogen/Creatinine [Mass ratio] 12 No Units Normal 10-20 [facility] Comment on above: Order Comment: pt lillian cruz poked once, pt extremely dehydrated and would like to wait for IV start [id number] 05/06/2023 16:33:00 EDT Performed By: #### 2 339889, 8144792, 9753507, 4359899, 33451088, 2720848, 7143084 ####[facility] [address] [place] [address] CBC w/ Auto Diffon 4 Basophils/100 WBC (Bld) 1.1 % Normal 0.0-2.0 [facility] Comment on above: Order Comment: pt lillian cruz poked once, pt extremely dehydrated and would like to wait for IV start dre223 05/06/2023 16:33:00 EDT Performed By: #### 2 161971, 1884159, 2041721, 3405615, 62727800, 3411517, 2724142 ####[facility] [address] [place] [address] Basophils/Leukocyte s Auto (Bld) [Pure # fraction] 0.0 E9/L Normal 0.0-0.2 [facility] Comment on above: Order Comment: pt lillian cruz poked once, pt extremely dehydrated and would like to wait for IV start [id number] 05/06/2023 16:33:00 EDT Performed By: #### 2 865363, 7668333, 4177072, 2720923, 13963877, 1574959, 0201232 ####[facility] [address] [place] [address] Eosinophils (Bld) [#/Vol] 0.1 E9/L Normal 0.0-0.5 [facility] Comment on above: Order Comment: pt wa s poked once, pt extremely dehydrated and would like to wait for IV start [id number] 05/06/2023 16:33:00 EDT Performed By: #### 2 016293, 6749481, 5621622, 7628484, 67447797, 6979944, 3915611 ####[facility] [address] [place] [address] Eosinophils/100 WBC (Bld) 1.5 % Normal 0.0-8.0 [facility] Comment on above: Order Comment: pt wa s poked once, pt extremely dehydrated and would like to wait for IV start afy499 05/06/2023 16:33:00 EDT Performed By: #### 2 488847, 6927719, 3825456, 7417511, 19862858, 7780900, 7071182 ####[address] [address] Erythrocyte distribution width (RBC) [Ratio] 14.1 % Normal 10.9-14.2 [facility] Comment on above: Order Comment: pt wa s poked once, pt extremely dehydrated and would like to wait for IV start [id number] 05/06/2023 16:33:00 EDT Performed By: #### 2 091331, 6875738, 2348819, 1114410, 48286064, 6446883, 1973946 ####[facility] [address] [place] [address] Hematocrit (Bld) [Volume fraction] 37.9 % Normal 34.0-46.0 [facility] Comment on above: Order Comment: pt wa s poked once, pt extremely dehydrated and would like to wait for IV start [id number] 05/06/2023 16:33:00 EDT Performed By: #### 2 133165, 2922370, 4870547, 3938412, 10210406, 4931250, 0722079 ####[facility] [address] [place] [address] Hemoglobin (Bld) [Mass/Vol] 12.9 g/dL Normal 12.0-16.0 [facility] Comment on above: Order Comment: pt wa s poked once, pt extremely dehydrated and would like to wait for IV start [id number] 05/06/2023 16:33:00 EDT Performed By: #### 2 754903, 4327302, 8854702, 4597122, 96765668, 1449866, 3119340 ####[facility] [address] [place] [address] Lymphocytes (Bld) [#/Vol] 1.4 E9/L Normal 1.0-4.0 [facility] Comment on above: Order Comment: pt wa s poked once, pt extremely dehydrated and would like to wait for IV start fsu860 05/06/2023 16:33:00 EDT Performed By: #### 2 977986, 1700353, 4601759, 0527441, 57123996, 2089692, 4979579 ####[facility] [address] [place] [address] Lymphocytes/100 WBC (Bld) 33.8 % Normal 14.0-50.0 [facility] Comment on above: Order Comment: pt wa s poked once, pt extremely dehydrated and would like to wait for IV start [id number] 05/06/2023 16:33:00 EDT Performed By: #### 2 435135, 5443396, 3704581, 6093647, 93867206, 9224315, 8915876 ####[facility] [address] [place] [address] MCH (RBC) [Entitic mass] 30.3 pg Normal 27.0-34.0 [facility] Comment on above: Order Comment: pt wa s poked once, pt extremely dehydrated and would like to wait for IV start [id number] 05/06/2023 16:33:00 EDT Performed By: #### 2 940411, 9271899, 2985334, 5049502, 44215172, 3485828, 0251307 ####[facility] [address] [place] [address] MCHC (RBC) [Mass/Vol] 34.1 g/dL Normal 31.4-36.0 [facility] Comment on above: Order Comment: pt wa s poked once, pt extremely dehydrated and would like to wait for IV start wrs348 05/06/2023 16:33:00 EDT Performed By: #### 2 834112, 9105722, 5562358, 7639748, 28279806, 3356430, 0073064 ####[address] [place] [address] MCV (RBC) [Entitic vol] 88.8 fL Normal 80.0-100.0 [facility] Comment on above: Order Comment: pt wa s poked once, pt extremely dehydrated and would like to wait for IV start [id number] 05/06/2023 16:33:00 EDT Performed By: #### 2 929172, 9724661, 1535754, 7248590, 14689777, 1662037, 7578997 ####[address] [place] [address] Monocytes (Bld) [#/Vol] 0.3 E9/L Normal 0.2-1.0 [facility] Comment on above: Order Comment: pt wa s poked once, pt extremely dehydrated and would like to wait for IV start [id number] 05/06/2023 16:33:00 EDT Performed By: #### 2 555237, 1320956, 1929552, 5479671, 44533893, 4560689, 1003363 ####[facility] [address] [place] [address] Neutrophils (Bld) [#/Vol] 2.3 E9/L Normal 2.0-7.5 [facility] Comment on above: Order Comment: pt wa s poked once, pt extremely dehydrated and would like to wait for IV start [id number] 05/06/2023 16:33:00 EDT Performed By: #### 2 158873, 5625108, 7491027, 8233668, 28342020, 9992761, 0011479 ####[facility] [address] [place] [address] Neutrophils/100 WBC (Bld) 56.4 % Normal 36.0-75.0 [facility] Comment on above: Order Comment: pt wa s poked once, pt extremely dehydrated and would like to wait for IV start [id number] 05/06/2023 16:33:00 EDT Performed By: #### 2 468631, 5983905, 9921369, 2680806, 81147442, 8786834, 9814363 ####[facility] [address] [place] [address] Platelet mean volume (Bld) [Entitic vol] 9.2 fL Normal 6.4-10.8 [facility] Comment on above: Order Comment: pt wa s poked once, pt extremely dehydrated and would like to wait for IV start [id number] 05/06/2023 16:33:00 EDT Performed By: #### 2 217991, 8559962, 1804736, 0041669, 60480222, 9455839, 2810142 ####[address] [place] [address] Platelets (Bld) [#/Vol] 192.0 E9/L Normal 150.0-500.0 [facility] Comment on above: Order Comment: pt wa s poked once, pt extremely dehydrated and would like to wait for IV start [id number] 05/06/2023 16:33:00 EDT Performed By: #### 2 476039, 2896916, 1951921, 7897080, 04141268, 2527748, 1902089 ####[address] [place] [address] RBC (Bld) [#/Vol] 4.3 E12/L Normal 4.3-5.9 [facility] Comment on above: Order Comment: pt wa s poked once, pt extremely dehydrated and would like to wait for IV start [id number] 05/06/2023 16:33:00 EDT Performed By: #### 2 968682, 1549536, 6187174, 4313122, 74077022, 3483001, 7910170 ####[facility] [address] [place] [address] WBC corrected for nucl RBC Auto (Bld) [#/Vol] 4.1 E9/L Normal 4.0-11.0 [facility] Comment on above: Order Comment: pt wa s poked once, pt extremely dehydrated and would like to wait for IV start [id number] 05/06/2023 16:33:00 EDT Performed By: #### 2 711602, 6796090, 4054751, 4770693, 06185180, 1633684, 2394777 ####[facility] [address] [place] [address] CHEMISTRYOrdered By: SYSTEM SYSTEM on 05-06-2023 Albumin [...] for Treatmenton 04-16 Consent for Treatment [id number] 11#1.00TIFF Normal [facility] Discharge Instructionson Discharge Instructions [id number] 616#1.00TIFF Normal [facility] ED Clinical Summaryon 2023 ED Clinical Summary Normal [facility] ED Patient Education Noteon 05-06-2023 ED Patient Education Note Normal [facility] ED Patient Summaryon 024 ED Patient Summary Normal [facility] HEMATOLOGYOrdered By: SYSTEM SYSTEM on 05-06-2023 Basophils/100 [...] 05-06-2023 Albumin [Mass/Vol] 4.6 g/dL Normal 3.3-5.0 [facility] Comment on above: Order Comment: pt wa s poked once, pt extremely dehydrated and would like to wait for IV start [id number] 05/06/2023 16:33:00 EDT Performed By: #### 2 131688, 3566106, 6945672, 5242209, 73152334, 7529001, 3854417 ####[facility] [address] [place] [address] Albumin/Globulin (S) [Mass conc ratio] 1.8 Normal 1.1-2.2 [facility] Comment on above: Order Comment: pt wa s poked once, pt extremely dehydrated and would like to wait for IV start [id number] 05/06/2023 16:33:00 EDT Performed By: #### 2 554852, 0736544, 9301421, 9665016, 55253390, 4539937, 2700576 ####[facility] [address] [place] [address] ALP [Catalytic activity/Vol] 56 Int._Unit/L Normal 21-98 [facility] Comment on above: Order Comment: pt wa s poked once, pt extremely dehydrated and would like to wait for IV start [id number] 05/06/2023 16:33:00 EDT Performed By: #### 2 514748, 5129700, 9673989, 5339022, 28096518, 9546210, 7453164 ####[facility] [address] [place] [address] ALT No additional P-5'-P [Catalytic activity/Vol] 14 Int._Unit/L Normal 6-46 [facility] Comment on above: Order Comment: pt lillian s poked once, pt extremely dehydrated and would like to wait for IV start [id number] 05/06/2023 16:33:00 EDT Performed By: #### 2 231276, 2042876, 8979292, 7771146, 90488115, 3697680, 9478493 ####[facility] [address] [place] [address] AST [Catalytic activity/Vol] 25 Int._Unit/L Normal 5-43 [facility] Comment on above: Order Comment: pt lillian s poked once, pt extremely dehydrated and would like to wait for IV start [id number] 05/06/2023 16:33:00 EDT Performed By: #### 2 790570, 9466022, 9705323, 6475888, 04054276, 4107663, 8495997 ####[facility] [address] [place] [address] Bilirubin [Mass/Vol] 0.5 mg/dL Normal 0.0-1.1 [facility] Comment on above: Order Comment: pt lillian s poked once, pt extremely dehydrated and would like to wait for IV start [id number] 05/06/2023 16:33:00 EDT Performed By: #### 2 579905, 8290508, 1908790, 8727061, 59816386, 6650592, 6006833 ####[facility] [address] [place] [address] Bilirubin.direct [Mass/Vol] 0.1 mg/dL Normal 0.0-0.4 [facility] Comment on above: Order Comment: pt lillian s poked once, pt extremely dehydrated and would like to wait for IV start [id number] 05/06/2023 16:33:00 EDT Performed By: #### 2 823814, 7715830, 5688874, 8792478, 72047387, 3170316, 8941469 ####[facility] [address] [place] [address] Bilirubin.indirect [Mass or moles/Vol] 0.4 mg/dL Normal 0.1-0.9 [facility] Comment on above: Order Comment: pt lillian s poked once, pt extremely dehydrated and would like to wait for IV start [id number] 05/06/2023 16:33:00 EDT Performed By: #### 2 251298, 9605399, 4611256, 5117106, 76915257, 0615917, 8477813 ####[facility] [address] [place] [address] Globulin (S) [Mass/Vol] 2.5 g/dL Normal 1.4-4.0 [facility] Comment on above: Order Comment: pt lillian s poked once, pt extremely dehydrated and would like to wait for IV start [id number] 05/06/2023 16:33:00 EDT Performed By: #### 2 708727, 4032583, 5737903, 0586755, 97415017, 1582646, 5768651 ####[facility] [address] [place] [address] Protein [Mass/Vol] 7.1 g/dL Normal 6.0-7.8 [facility] Comment on above: Order Comment: pt lillian s poked once, pt extremely dehydrated and would like to wait for IV start [id number] 05/06/2023 16:33:00 EDT Performed By: #### 2 206023, 3454657, 0742689, 5991784, 19640949, 2306974, 2782095 ####[facility] [address] [place] [address] Lactic Acidon 05-06-2023 Lactic Acid Lvl 0.7 mmol/L Normal 0.5-2.2 [facility] Comment on above: Order Comment: pt lillian s poked once, pt extremely dehydrated and would like to wait for IV start [id number] 05/06/2023 16:33:00 EDT Performed By: #### 2 474143, 6183494, 0909032, 1185255, 52481142, 5586353, 9728692 ####[facility] [address] [place] [address] Lipase Levelon 05-06-2023 Lipase [Catalytic activity/Vol] 62 U/L High 13-58 [facility] Comment on above: Order Comment: pt wa s poked once, pt extremely dehydrated and would like to wait for IV start [id number] 05/06/2023 16:33:00 EDT Performed By: #### 2 297136, 4082204, 5510306, 0753410, 94020575, 1186420, 2488867 ####[facility] [address] [place] [address] Monitor Recordon 05-06-2023 Monitor Record [id number] 932#1.00TIFF Normal [facility] Monitor Record [id number] 260#1.00TIFF Normal [facility] Monitor Record [id number]#1.00TIFF Normal [facility] Monitor Record [id number] 349#1.00TIFF Normal [facility] eGFRon 05-06-2023 eGFR 99 mL/min/1.73 m2 Normal >=59 [facility] Comment on above: Order Comment: Order added by Discern Expert. Performed By: #### 2 157085, 1483702, 4411088, 5000445, 13012616, 1996073, 1999190 ####[facility] [address] [place] [address] ED Note-Physicianon 04-07-19 24 ED Note-Physician [id number] 6D#1.00TIFF [facility] Alanine aminotransferase [En zymatic activity/volume] in Serum or PlasmaOrdered By: Trace Lowery on 04-06-2023 ALT [Catalytic activity/Vol] 21 U/L Normal 7-52 [facility] Comment on above: Performed By: #### A CORY, JOSESITO, FIDE #### [address] [place] [address] [place] Albumin [Mass/volume] in Ser um or Plasma by Bromocresol green (BCG) dye binding methoOrdered By: Trace Lowery on 04-06-2023 Albumin BCG dye [Mass/Vol] 4.5 g/dL 3.5-5.7 [facility] Alkaline phosphatase [Enzyma tic activity/volume] in Serum or PlasmaOrdered By: Trace Leosimore on 04-06-2023 ALP [Catalytic activity/Vol] 48 U/L Normal 34-104 [facility] Comment on above: Performed By: #### A DDONUAPLUS, [facility] [place] #### [address] Amylase [Enzymatic activity/ volume] in Serum or PlasmaOrdered By: Trace Solimanore on 04-06-2023 Amylase [Catalytic activity/Vol] 48 U/L Normal 29-103 [facility] Comment on above: Performed By: #### A DDONUAJESSICA, [facility] [place] #### [address] Aspartate aminotransferase [ Enzymatic activity/volume] in Serum or PlasmaOrdered By: Trace Lowery on 04-06-2023 AST [Catalytic activity/Vol] 28 U/L Normal 13-39 [facility] Comment on above: Performed By: #### A [facility]APLUS, [facility] #### [address] Automated basophil %Ordered By: Trace Lowery on 04-06-2023 Basophils/100 WBC (Bld) 1.0 % Normal . [facility] Comment on above: Performed By: #### L IPASE, HEPATIC, RAEGAN, CBC, BMP #### [facility] [address] [place] [address] Automated basophil countOrde red By: Trace Lowery on 04-06-2023 Basophils (Bld) [#/Vol] 0.0 10*3/uL Normal 0.0-0.2 [facility] Comment on above: Result Comment: PERF ORMED BY: [place] [address] PATHOLOGIST AUTO WINDER BAUTISTA BAKER M.D. Performed By: #### L IPASE, HEPATIC, RAEGAN, CBC, BMP #### [address] Automated blood monocyte cou ntOrdered By: Trace Bullimore on 04-06-2023 Monocytes (Bld) [#/Vol] 0.3 10*3/uL Normal 0.0-0.8 [facility] Comment on above: Performed By: #### L IPASE, HEPATIC, RAEGAN, CBC, BMP #### [address] Automated eosinophil %Ordere d By: Trace Bullimore on 04-06-2023 Eosinophils/100 WBC (Bld) 3.1 % Normal . [facility] Comment on above: Performed By: #### L IPASE, HEPATIC, RAEGAN, CBC, BMP #### [address] Automated eosinophil countOr dered By: Trace Bullimore on 04-06-2023 Eosinophils (Bld) [#/Vol] 0.1 10*3/uL Normal 0.0-0.45 [facility] Comment on above: Performed By: #### L IPASE, HEPATIC, RAEGAN, CBC, BMP #### [address] Automated erythrocytes count in urine sediment (number/area)Ordered By: Trace Bullimore on 04-06-2023 RBC Auto (Urine sed) [#/Area] 1-2 [HPF] 0-4 [facility] Automated leukocytes count i n urine sediment (number/area)Ordered By: Trace Bullimore on 04-06-2023 WBC Auto (Urine sed) [#/Area] 3-4 [HPF] 0-4 [facility] Automated monocyte %Ordered By: Trace Bullimore on 04-06-2023 Monocytes/100 WBC (Bld) 6.7 % Normal . [facility] Comment on above: Performed By: #### L IPASE, HEPATIC, RAEGAN, CBC, BMP #### [facility] [address] Automated neutrophil %Ordere d By: Trace Lowery on 04-06-2023 Neutrophils/100 WBC (Bld) 51.6 % Normal . [facility] Comment on above: Performed By: #### L IPASE, HEPATIC, RAEGAN, CBC, BMP #### [facility] [address] Automated urine color determ inationOrdered By: Trace Lowery on 04-06-2023 Color (U) Yellow Normal Yellow [facility] Comment on above: Order Comment: Name Collection Type:: Clean-Voided Midstream Performed By: #### H EPATIC, MG, LIPASE, CMP, CBC #### [facility] [address] Basic Metabolic Panelon 03-19 Creatinine Clr Calc Pharmacy 98.98 Normal [facility] Comment on above: Performed By: #### A DDONUAPLUS, UHCG, CUU #### [facility] [address] GFR/1.73 sq M.predicted MDRD (S/P/Bld) [Vol rate/Area] mL/min/{1.73_m2} Normal [facility] Comment on above: Performed By: #### A DDONUAPLUS, UHCG, CUU #### [address] Bilirubin Test strip Ql (U)O rdered By: Trace Lowery on 04-06-2023 Bilirubin Ql (U) Negative Negative [facility] Bilirubin.direct [Mass/volum e] in Serum or PlasmaOrdered By: Trace Lowery on 04-06-2023 Bilirubin.direct [Mass/Vol] 0.10 mg/dL 0.03-0.18 [facility] Bilirubin.total [Mass/volume ] in Serum or PlasmaOrdered By: Trace Solimanore on 04-06-2023 Bilirubin [Mass/Vol] 0.4 mg/dL Normal 0.3-1.0 [facility] Comment on above: Performed By: #### A MALLORIEUAJESSICA, [facility] #### [facility] [address] abdomen pelvis w conon CT abdomen pelvis w con [facility] [place] [id number] Scan Report Signed Patient: Abbey Garcia MR#: [id number] : 1990 Acct:[id number] Age/Sex: 33 / F ADM Date: 04/06/23 Loc: ER Room: Type: [facility] ER Attending Dr: Copies to: AGA [...] Maricruz Hutchinson M.D.04/06/2023 1:50 PM Dictation Location: [place] [address] Transcribed By: [facility] 04/06/23 1350 Dictated By: Maricruz Hutchinson MD 04/06/23 1341 Signed By: 04/06/23 1350 Normal [facility] [employer] Calcium [Mass/volume] in Ser um or PlasmaOrdered By: Trace Lowery on 04-06-2023 Calcium [Mass/Vol] 9.1 mg/dL Normal 8.6-10.3 [facility] Comment on above: Performed By: #### A MALLORIEUAJESSICA, CG, CUU #### [address] Carbon dioxide, total [Moles /volume] in Serum or PlasmaOrdered By: Trace Lowery on 04-06-2023 CO2 [Moles/Vol] 23.3 mmol/L Normal 21.0-31.0 [facility] Comment on above: Performed By: #### A NISHONUABRITTANIE LOPEZCG, CUU #### [facility] [address] [place] [address] [place] Chloride [Moles/volume] in S elder or PlasmaOrdered By: Trace Lowery on 04-06-2023 Chloride [Moles/Vol] 109 mmol/L High 98-107 [facility] Comment on above: Performed By: #### A DDONUAPLUS, UHCG, CUU #### [facility] [address] Complete Blood Count Auto Di ffon 04-06-2023 Mean Corpuscular HGB Conc 34.2 g/dL Normal 32.0-35.0 [facility] [employer] Comment on above: Performed By: #### L IPASE, HEPATIC, RAEGAN, CBC, BMP #### [facility] [address] [place] [address] [place] Monocytes/100 WBC (Bld) 15.98 % Normal 0.00-20.00 [facility] Comment on above: Performed By: #### L IPASE, HEPATIC, RAEGAN, CBC, BMP #### [facility] [address] NRBC% 0.1 /100{WBC} Normal 0-0.5 [facility] Comment on above: Performed By: #### L IPASE, HEPATIC, RAEGAN, CBC, BMP #### [address] Creatinine [Mass/volume] in Serum or PlasmaOrdered By: Trace Lowery on 04-06-2023 Creatinine [Mass/Vol] 0.86 mg/dL Normal 0.60-1.20 [facility] Comment on above: Performed By: #### A DDONUAPLUS, UHCG, CUU #### [address] Dipstick and Microscopicon 0 04-06-2023 Appearance (U) Cloudy Critically abnormal Clear [facility] Comment on above: Order Comment: Name Collection Type:: Clean-Voided Midstream Performed By: #### H EPATIC, MG, LIPASE, CMP, CBC #### [address] Bacteria,Urine None Seen Normal None Seen [facility] Comment on above: Order Comment: Name Collection Type:: Clean-Voided Midstream Performed By: #### H EPATIC, MG, LIPASE, CMP, CBC #### [address] Bilirubin,Urine Negative Normal Negative [facility] Comment on above: Order Comment: Name Collection Type:: Clean-Voided Midstream Performed By: #### H EPATIC, MG, LIPASE, CMP, CBC #### [address] Glucose Ql (U) Normal Normal Normal [facility] Comment on above: Order Comment: Name Collection Type:: Clean-Voided Midstream Performed By: #### H EPATIC, MG, LIPASE, CMP, CBC #### [address] Hyaline Casts,Urine 0-8 Normal 0-8 [facility] Comment on above: Order Comment: Name Collection Type:: Clean-Voided Midstream Result Comment: PERF ORMED BY: [place] [address] PATHOLOGIST AUTO WINDER BAUTISTA BAKER M.D. Performed By: #### H EPATIC, MG, LIPASE, CMP, CBC #### [address] Ketones Ql (U) Trace High Negative [facility] Comment on above: Order Comment: Name Collection Type:: Clean-Voided Midstream Performed By: #### H EPATIC, MG, LIPASE, CMP, CBC #### [address] Leukocyte esterase Test strip Ql (U) Negative Normal Negative [facility] Comment on above: Order Comment: Name Collection Type:: Clean-Voided Midstream Performed By: #### H EPATIC, MG, LIPASE, CMP, CBC #### [place] [address] [place] Nitrite,Urine Negative Normal Negative [facility] Comment on above: Order Comment: Name Collection Type:: Clean-Voided Midstream Performed By: #### H EPATIC, MG, LIPASE, CMP, CBC #### [place] [address] [place] Occult Blood,Urine Negative Normal Negative [facility] Comment on above: Order Comment: Name Collection Type:: Clean-Voided Midstream Result Comment: PERF ORMED BY: [place] [address] PATHOLOGIST AUTO WINDER BAUTISTA BAKER M.D. Performed By: #### H EPATIC, MG, LIPASE, CMP, CBC #### [place] [address] [place] Protein,Urine Negative Normal Negative [facility] Comment on above: Order Comment: Name Collection Type:: Clean-Voided Midstream Performed By: #### H EPATIC, MG, LIPASE, CMP, CBC #### [address] RBC,Urine 1-2 Normal 0-4 [facility] Comment on above: Order Comment: Name Collection Type:: Clean-Voided Midstream Performed By: #### H EPATIC, MG, LIPASE, CMP, CBC #### [address] Specificy [place],Urine 1.026 Normal 1.001-1.030 [facility] Comment on above: Order Comment: Name Collection Type:: Clean-Voided Midstream Performed By: #### H EPATIC, MG, LIPASE, CMP, CBC #### [address] Squamous Epithelial Cell,Urine 3-4 High 0-2 [facility] Comment on above: Order Comment: Name Collection Type:: Clean-Voided Midstream Performed By: #### H EPATIC, MG, LIPASE, CMP, CBC #### [address] Urobilinogen,Urine Normal Normal Normal [facility] Comment on above: Order Comment: Name Collection Type:: Clean-Voided Midstream Performed By: #### H EPATIC, MG, LIPASE, CMP, CBC #### [address] WBC,Urine 3-4 Normal 0-4 [facility] Comment on above: Order Comment: Name Collection Type:: Clean-Voided Midstream Performed By: #### H EPATIC, MG, LIPASE, CMP, CBC #### [address] Erythrocyte distribution wid th [Ratio] by Automated countOrdered By: Trace Lowery on 04-06-2023 Erythrocyte distribution width (RBC) [Ratio] 13.9 % Normal 11.9-15.3 [facility] Comment on above: Performed By: #### L IPASE, HEPATIC, RAEGAN, CBC, BMP #### [address] [place] [address] [place] Erythrocytes [#/volume] in B lood by Automated countOrdered By: Trace Lowery on 04-06-2023 RBC (Bld) [#/Vol] 4.17 10*6/uL Normal 3.60-5.00 [facility] Comment on above: Performed By: #### L IPASE, HEPATIC, RAEGAN, CBC, BMP #### [facility] [address] [place] [address] [place] Glucose [Mass/volume] in Ser um or PlasmaOrdered By: Trace Lowery on 04-06-2023 Glucose [Mass/Vol] 77 mg/dL Normal 70-100 [facility] Comment on above: ADA recommended refe rence rangeRandom Glucose Reference Range is dependent on time and content of last meal. Glucose of more than 200 mg/dL in a nonstressed, ambulatory subject supports the diagnosis of Diabetes Mellitus. Result Comment: [place] om Glucose Reference Range is dependent on time and content of last meal. Glucose of more than 200 mg/dL in a nonstressed, ambulatory subject supports the diagnosis of Diabetes Mellitus. ADA recommended reference range Performed By: #### A DDONUAPLUS, UHCG, CUU #### [address] HCG ( test) [place].rapi d Ql (U)Ordered By: Trace Lowery on 04-06-2023 HCG ( test) Ql (U) Negative [facility] HCG,Urineon 04-06-2023 Beta HCG ( test) Ql (U) Negative Normal [facility] Comment on above: Result Comment: PERF ORMED BY: [place] [address] PATHOLOGIST AUTO WINDER BAUTISTA BAKER M.D. Performed By: #### A DDONUAPLUS, UHCG, CUU #### [facility] [address] Hematocrit [Volume Fraction] of Blood by Automated countOrdered By: Trace Lowery on 04-06-2023 Hematocrit (Bld) [Volume fraction] 37.4 % Normal 34.0-46.4 [facility] Comment on above: Performed By: #### L IPASE, HEPATIC, RAEGAN, CBC, BMP #### [facility] [address] Hemoglobin [Mass/volume] in BloodOrdered By: Trace Lowery on 04-06-2023 Hemoglobin (Bld) [Mass/Vol] 12.8 g/dL Normal 11.8-15.4 [facility] Comment on above: Performed By: #### L IPASE, HEPATIC, RAEGAN, CBC, BMP #### [facility] [address] Hepatic Panelon 04-06-2023 Albumin [Mass/Vol] 4.5 g/dL Normal 3.5-5.7 [facility] Comment on above: Performed By: #### A DDONUAPLUS, UHCG, CUU #### [facility] [address] Bilirubin,Indirect 0.3 mg/dL Normal [facility] Comment on above: Performed By: #### A DDONUAPLUS, UHCG, CUU #### [facility] [address] Bilirubin.indirect [Mass/Vol] 0.10 mg/dL Normal 0.03-0.18 [facility] Comment on above: Performed By: #### A DDONUAPLUS, UHCG, CUU #### [facility] [address] Ketones Auto test strip (U) [Mass/Vol]Ordered By: Trace Lowery on 04-06-2023 Ketones (U) [Mass/Vol] Trace Negative [facility] - UrinalysisOrder ed By: Trace Lowery on 04-06-2023 Hyaline casts LM Ql (Urine sed) 0-8 [LPF] 0-8 [facility] Leukocytes [#/volume] correc darvin for nucleated erythrocytes in Blood by Automated counOrdered By: Trace Lowery on 04-06-2023 WBC corrected for nucl RBC Auto (Bld) [#/Vol] 3.8 10*3/uL 3.8-11.6 [facility] Leukocytes [#/volume] in Blo od by Automated countOrdered By: Trace Solimanore on 04-06-2023 WBC (Bld) [#/Vol] 3.8 10*3/uL Normal 3.8-11.6 [facility] Comment on above: Performed By: #### L IPASE, HEPATIC, RAEGAN, CBC, BMP #### [facility] [address] Lipase [Enzymatic activity/v olume] in Serum or PlasmaOrdered By: Trace Solimanore on 04-06-2023 Lipase [Catalytic activity/Vol] 86.0 U/L High 11.0-82.0 [facility] Comment on above: Result Comment: PERF ORMED BY: [place] [address] PATHOLOGIST AUTO WINDER BAUTISTA BAKER M.D. Performed By: #### A DDONUAPLUS, [facility] #### [facility] [address] [place] [address] [place] Lymphocytes [#/volume] in Bl ood by Automated countOrdered By: Trace Lowery on 04-06-2023 Lymphocytes (Bld) [#/Vol] 1.4 10*3/uL Normal 1.00-4.8 [facility] Comment on above: Performed By: #### L IPASE, HEPATIC, RAEGAN, CBC, BMP #### [facility] [address] [place] [address] [place] Lymphocytes/100 leukocytes i n Blood by Automated countOrdered By: Trace Solimanore on 04-06-2023 Lymphocytes/100 WBC (Bld) 37.6 % Normal . [facility] Comment on above: Performed By: #### L IPASE, HEPATIC, RAEGAN, CBC, BMP #### [facility] [address] [place] [address] [place] MCH [Entitic mass] by Automa darvin countOrdered By: Trace Solimanore on 04-06-2023 MCH (RBC) [Entitic mass] 30.6 pg Normal 24.7-34.3 [facility] Comment on above: Performed By: #### L IPASE, HEPATIC, RAEGAN, CBC, BMP #### [facility] [address] MCHC Auto (RBC) [Mass/Vol]Or dered By: Trace Bullimore on 04-06-2023 MCHC (RBC) [Mass/Vol] 34.2 g/dL 32.0-35.0 [facility] MCV [Entitic volume] by Auto mated countOrdered By: Trace Leosimore on 04-06-2023 MCV (RBC) [Entitic vol] 89.7 fL Normal 80-100 [facility] Comment on above: Performed By: #### L IPASE, HEPATIC, RAEGAN, CBC, BMP #### [facility] [address] Monocyte distribution width [Entitic volume] in Blood by AutomatedOrdered By: Trace Leosimlaurel on 04-06-2023 Monocyte distribution width Auto (Bld) [Entitic vol] 15.98 % 0.00-20.00 [facility] Neutrophils [#/volume] in Bl ood by Automated countOrdered By: Trace Lowery on 04-06-2023 Neutrophils (Bld) [#/Vol] 2.0 10*3/uL Normal 1.8-7.7 [facility] Comment on above: Performed By: #### L IPASE, HEPATIC, RAEGAN, CBC, BMP #### [facility] [address] Street Nitrite Test strip Ql (U)Ord ered By: Trace Leosimlaurel on 04-06-2023 Nitrite Ql (U) Negative Negative [facility] No Panel InformationOrdered By: Trace Lowery on 04-06-2023 Estimated GFR (CKD-EPI) > 60.0 mL/Min [facility] Creatinine Clearance (Chem 98.98 [facility] Nucleated erythrocytes [Pres ence] in Blood by Automated countOrdered By: Trace Lowery on 04-06-2023 Nucleated RBC Auto Ql (Bld) 0.1 /100{WBC} 0-0.5 [facility] Platelet mean volume [Entiti c volume] in Blood by Automated countOrdered By: Trace Bullimore on 04-06-2023 Platelet mean volume (Bld) [Entitic vol] 9.7 fL Normal 6.3-10.7 [facility] Comment on above: Performed By: #### L IPASE, HEPATIC, RAEGAN, CBC, BMP #### [facility] [address] Platelets [#/volume] in Bloo d by Automated countOrdered By: Trace Bullimore on 04-06-2023 Platelets (Bld) [#/Vol] 210 10*3/uL Normal 150-450 [facility] Comment on above: Performed By: #### L IPASE, HEPATIC, RAEGAN, CBC, BMP #### [facility] [address] Potassium [Moles/volume] in Serum or PlasmaOrdered By: Trace Bullimore on 04-06-2023 Potassium [Moles/Vol] 3.7 mmol/L Normal 3.5-5.1 [facility] Comment on above: Performed By: #### A DDONUAPLUS, UHCG, CUU #### [address] Protein Auto test strip (U) [Mass/Vol]Ordered By: Trace Leosimore on 04-06-2023 Protein (U) [Mass/Vol] Negative Negative [facility] Protein [Mass/volume] in Ser um or PlasmaOrdered By: Trace Bullimore on 04-06-2023 Protein [Mass/Vol] 7.1 g/dL Normal 6.4-8.9 [facility] Comment on above: Performed By: #### A DDONUAPLUS, UHCG, CUU #### [address] Serum globulin measurement b y calculation (mass/volume)Ordered By: Trace Leosimore on 04-06-2023 Globulin (S) [Mass/Vol] 2.6 g/dL Normal [facility] Comment on above: Performed By: #### A DDONUAPLUS, UHCG, CUU #### [facility] [address] Serum or plasma albumin/glob ulin mass ratioOrdered By: Trace Lowery on 04-06-2023 Albumin/Globulin [Mass ratio] 1.7 {ratio} Normal [facility] Comment on above: Performed By: #### A [facility] #### [address] Serum or plasma anion gap de terminationOrdered By: Trace Lowery on 04-06-2023 Anion gap [Moles/Vol] 12.4 mmol/L Normal 6.0-15.0 [facility] Comment on above: Performed By: #### A [facility] #### [address] Serum or plasma non-glucuron idated bilirubin measurement (mass/volume)Ordered By: Trace Lowery on 04-06-2023 Bilirubin.indirect [Mass/Vol] 0.3 mg/dL [facility] Sodium [Moles/volume] in Ser um or PlasmaOrdered By: Trace Lowery on 04-06-2023 Sodium [Moles/Vol] 141 mmol/L Normal 136-145 [facility] Comment on above: Performed By: #### A [facility]ORY, [facility], [facility] #### [address] Specific gravity Auto test s trip (U) [Rel density]Ordered By: Trace Lowery on 04-06-2023 Specific gravity (U) [Rel density] 1.026 1.001-1.030 [facility] Squamous epithelial cells de tection in urine sediment by light microscopyOrdered By: Trace Lowery on 04-06-2023 Epithelial cells.squamous LM Ql (Urine sed) 3-4 [HPF] 0-2 [facility] Urea nitrogen [Mass/volume] in Serum or PlasmaOrdered By: Trace Lowery on 04-06-2023 Urea nitrogen [Mass/Vol] 10 mg/dL Normal 7-25 [facility] Comment on above: Performed By: #### A DDONUAPLUS, UHCG, CUU #### [facility] [address] Urine bacteria detection by automated methodOrdered By: Trace Lowery on 04-06-2023 Bacteria Auto Ql (U) None seen None Seen [facility] Urine clarity by refractomet ry automatedOrdered By: Trace Lowery on 04-06-2023 Clarity Refractometry automated (U) Cloudy Clear [facility] Urine glucose measurement by automated test strip (mass/volume)Ordered By: Trace Lowery on 04-06-2023 Glucose Auto test strip (U) [Mass/Vol] Normal mg/dL Normal [facility] Urine hemoglobin detection b y automated test stripOrdered By: Trace Lowery on 04-06-2023 Hemoglobin Auto test strip Ql (U) Negative Negative [facility] Urine leukocyte esterase det ection by automated test stripOrdered By: Trace Lowery on 04-06-2023 Leukocyte esterase Auto test strip Ql (U) Negative Negative [facility] Urine pH measurement by auto mated test stripOrdered By: Trace Lowery on 04-06-2023 pH (U) 7.5 [pH] Normal 5.0-9.0 [facility] Comment on above: Order Comment: Name Collection Type:: Clean-Voided Midstream Performed By: #### H EPATIC, MG, LIPASE, CMP, CBC #### [facility] [address] Urobilinogen Auto test strip (U) [Mass/Vol]Ordered By: Trace Lowery on 04-06-2023 Urobilinogen (U) [Mass/Vol] Normal mg/dL Normal [facility] BMPon 04-02-2023 Anion gap [Moles/Vol] 10 mmol/L Normal 07-31 [facility] Comment on above: Performed By: #### 2 409514, 1344196, 4653415, 32173558, 79792761, 80143807, 8808845, 33704584 ####[facility] [address] [place] [address] BUN/Creat Ratio 14 No Units Normal 10-20 [facility] Comment on above: Performed By: #### 2 573899, 1673981, 9014772, 11307930, 84646437, 70715971, 4213676, 46401858 ####[facility] [address] [place] [address] Calcium [Mass/Vol] 8.4 mg/dL Low 8.9-11.1 [facility] Comment on above: Performed By: #### 2 271669, 3140172, 9705944, 52240117, 18629468, 76175937, 4577117, 70086214 ####[facility] [address] [place] [address] Chloride [Moles/Vol] 111 mmol/L Normal 101-111 [facility] Comment on above: Performed By: #### 2 658186, 9631254, 2071957, 66126028, 20869574, 48413449, 0053433, 35964978 ####[facility] [address] [place] [address] CO2 [Moles/Vol] 21 mmol/L Normal 21-31 [facility] Comment on above: Performed By: #### 2 573168, 2598326, 8560454, 17950407, 04107897, 78284774, 7901180, 86190500 ####[facility] [address] [place] [address] Creatinine [Mass/Vol] 0.7 mg/dL Normal 0.5-1.3 [facility] Comment on above: Performed By: #### 2 408883, 3569327, 7791572, 70717053, 10668418, 19434245, 4665384, 46444220 ####[facility] [address] [place] [address] Glucose [Mass/Vol] 86 mg/dL Normal 55-199 [facility] Comment on above: Performed By: #### 2 188201, 3363079, 4422074, 60131681, 78780172, 70406104, 9458543, 41585636 ####[facility] [address] [place] [address] Potassium [Moles/Vol] 3.9 mmol/L Normal 3.5-5.3 [facility] Comment on above: Performed By: #### 2 336483, 7084107, 9512315, 00359499, 79344252, 25485960, 7450204, 86402277 ####[facility] [address] [place] [address] Sodium [Moles/Vol] 138 mmol/L Normal 135-145 [facility] Comment on above: Performed By: #### 2 378639, 5565746, 8838055, 31654140, 76412932, 87687323, 4588823, 88060025 ####[address] [place] [address] Urea nitrogen [Mass/Vol] 10 mg/dL Normal 5-21 [facility] Comment on above: Performed By: #### 2 670758, 4970056, 2959386, 68306524, 97617480, 47680649, 9354173, 15734562 ####[facility] [address] [place] [address] BNPon 04-02-2023 Int Ctr BNP Pass Normal [facility] Comment on above: Order Comment: 2nd d raw rejected due to clotted speciment. Phlebotomists notified of redraw by message. [facility] 04/02/2023 12:28:38 EST Performed By: #### 2 596566, 2654407, 2087220, 90649594, 13513151, 53827229, 6034882, 29634956 ####[facility] [address] [place] [address] Natriuretic peptide B (Bld) [Mass/Vol] 25 pg/mL Normal 5-80 [facility] Comment on above: Order Comment: 2nd d raw rejected due to clotted speciment. Phlebotomists notified of redraw by message. [facility] 04/02/2023 12:28:38 EST Performed By: #### 2 965453, 6786776, 7755692, 97178979, 06150466, 56618406, 3949213, 62813068 ####[facility] [address] [place] [address] CBC w/ Auto Diffon 4 Basophil Absolute 0.0 E9/L Normal 0.0-0.2 [facility] Comment on above: Order Comment: speci men rejected due to clot. Phlebotomists notified by message. [facility] 04/02/2023 11:56:19 EST\2nd draw rejected due to clot. Phlebotomists notified by message. [facility] 04/02/2023 12:27:56 EST Performed By: #### 2 880432, 4017653, 7838361, 56401402, 88061198, 30583126, 5452134, 23921355 ####[facility] [address] [place] [address] Basophils/100 WBC (Bld) 0.8 % Normal 0.0-2.0 [facility] Comment on above: Order Comment: speci men rejected due to clot. Phlebotomists notified by message. [facility] 04/02/2023 11:56:19 EST\2nd draw rejected due to clot. Phlebotomists notified by message. [facility] 04/02/2023 12:27:56 EST Performed By: #### 2 918191, 8627886, 6878467, 45943536, 77427095, 54202284, 4208758, 91992891 ####[facility] [address] [place] [address] Eos Absolute 0.2 E9/L Normal 0.0-0.5 [facility] Comment on above: Order Comment: speci men rejected due to clot. Phlebotomists notified by message. [facility] 04/02/2023 11:56:19 EST\2nd draw rejected due to clot. Phlebotomists notified by message. [facility] 04/02/2023 12:27:56 EST Performed By: #### 2 387496, 0986420, 6124091, 49392623, 01349530, 18818591, 4312727, 37394335 ####[facility] [address] [place] [address] Eosinophils/100 WBC (Bld) 3.1 % Normal 0.0-8.0 [facility] Comment on above: Order Comment: speci men rejected due to clot. Phlebotomists notified by message. [facility] 04/02/2023 11:56:19 EST\2nd draw rejected due to clot. Phlebotomists notified by message. [facility] 04/02/2023 12:27:56 EST Performed By: #### 2 066503, 9767184, 6616115, 85762129, 60396204, 24351208, 6245742, 41483316 ####[facility] [address] [place] [address] Erythrocyte distribution width (RBC) [Ratio] 14.0 % Normal 10.9-14.2 [facility] Comment on above: Order Comment: speci men rejected due to clot. Phlebotomists notified by message. [facility] 04/02/2023 11:56:19 EST\2nd draw rejected due to clot. Phlebotomists notified by message. [facility] 04/02/2023 12:27:56 EST Performed By: #### 2 725307, 7804384, 7717367, 80952702, 46101258, 50567852, 8792044, 57313130 ####[facility] [address] [place] [address] Hematocrit (Bld) [Volume fraction] 38.0 % Normal 34.0-46.0 [facility] Comment on above: Order Comment: speci men rejected due to clot. Phlebotomists notified by message. [facility] 04/02/2023 11:56:19 EST\2nd draw rejected due to clot. Phlebotomists notified by message. [facility] 04/02/2023 12:27:56 EST Performed By: #### 2 362926, 7211493, 6084645, 14246027, 65247315, 25106949, 7853027, 61277878 ####[facility] [address] [place] [address] Hemoglobin (Bld) [Mass/Vol] 12.8 g/dL Normal 12.0-16.0 [facility] Comment on above: Order Comment: speci men rejected due to clot. Phlebotomists notified by message. [facility] 04/02/2023 11:56:19 EST\2nd draw rejected due to clot. Phlebotomists notified by message. [facility] 04/02/2023 12:27:56 EST Performed By: #### 2 801374, 6019416, 5953444, 56887496, 17440214, 61002170, 9204293, 47982995 ####[facility] [address] [place] [address] Lymph Absolute 1.8 E9/L Normal 1.0-4.0 [facility] Comment on above: Order Comment: speci men rejected due to clot. Phlebotomists notified by message. [facility] 04/02/2023 11:56:19 EST\2nd draw rejected due to clot. Phlebotomists notified by message. [facility] 04/02/2023 12:27:56 EST Performed By: #### 2 341798, 5201753, 9942230, 20096936, 83622981, 20572734, 6234658, 59772377 ####[address] [place] [address] Lymphocytes/100 WBC (Bld) 34.1 % Normal 14.0-50.0 [facility] Comment on above: Order Comment: speci men rejected due to clot. Phlebotomists notified by message. [facility] 04/02/2023 11:56:19 EST\2nd draw rejected due to clot. Phlebotomists notified by message. [facility] 04/02/2023 12:27:56 EST Performed By: #### 2 716927, 0763496, 7805809, 37690299, 46989957, 71590437, 7111768, 75725221 ####[facility] [address] [place] [address] MCH (RBC) [Entitic mass] 29.8 pg Normal 27.0-34.0 [facility] Comment on above: Order Comment: speci men rejected due to clot. Phlebotomists notified by message. [facility] 04/02/2023 11:56:19 EST\2nd draw rejected due to clot. Phlebotomists notified by message. [facility] 04/02/2023 12:27:56 EST Performed By: #### 2 974162, 4480994, 6035577, 19529935, 44630071, 05836642, 9520437, 40299246 ####[facility] [address] [place] [address] MCHC (RBC) [Mass/Vol] 33.5 g/dL Normal 31.4-36.0 [facility] Comment on above: Order Comment: speci men rejected due to clot. Phlebotomists notified by message. [facility] 04/02/2023 11:56:19 EST\2nd draw rejected due to clot. Phlebotomists notified by message. [facility] 04/02/2023 12:27:56 EST Performed By: #### 2 310175, 5379983, 7461152, 55739683, 38802570, 14055195, 0221943, 68482213 ####[facility] [address] [place] [address] MCV (RBC) [Entitic vol] 88.9 fL Normal 80.0-100.0 [facility] Comment on above: Order Comment: speci men rejected due to clot. Phlebotomists notified by message. [facility] 04/02/2023 11:56:19 EST\2nd draw rejected due to clot. Phlebotomists notified by message. [facility] 04/02/2023 12:27:56 EST Performed By: #### 2 253989, 2924098, 2919947, 54059637, 26409079, 98732757, 3132093, 94970487 ####[facility] [address] [place] [address] Sunflower Absolute 0.4 E9/L Normal 0.2-1.0 [facility] Comment on above: Order Comment: speci men rejected due to clot. Phlebotomists notified by message. [facility] 04/02/2023 11:56:19 EST\2nd draw rejected due to clot. Phlebotomists notified by message. [facility] 04/02/2023 12:27:56 EST Performed By: #### 2 597995, 6812160, 6316804, 45208085, 98292236, 43150749, 7943761, 51899735 ####[facility] [address] [place] [address] Monocytes/100 WBC (Bld) 7.4 % Normal 4.0-14.0 [facility] Comment on above: Order Comment: speci men rejected due to clot. Phlebotomists notified by message. [facility] 04/02/2023 11:56:19 EST\2nd draw rejected due to clot. Phlebotomists notified by message. [facility] 04/02/2023 12:27:56 EST Performed By: #### 2 446623, 0027522, 5131672, 68917535, 91580463, 25750635, 9280717, 27346691 ####[facility] [address] [place] [address] Neutro Absolute 2.9 E9/L Normal 2.0-7.5 [facility] Comment on above: Order Comment: speci men rejected due to clot. Phlebotomists notified by message. [facility] 04/02/2023 11:56:19 EST\2nd draw rejected due to clot. Phlebotomists notified by message. [facility] 04/02/2023 12:27:56 EST Performed By: #### 2 035174, 3199858, 7985877, 75175124, 79837252, 05508793, 4127426, 08670195 ####[facility] [address] [place] [address] Neutro Auto 54.6 % Normal 36.0-75.0 [facility] Comment on above: Order Comment: speci men rejected due to clot. Phlebotomists notified by message. [facility] 04/02/2023 11:56:19 EST\2nd draw rejected due to clot. Phlebotomists notified by message. [facility] 04/02/2023 12:27:56 EST Performed By: #### 2 436142, 0930816, 9197220, 53386451, 64638983, 69879445, 8414216, 00166539 ####[facility] [address] [place] [address] Platelet 204.0 E9/L Normal 150.0-500.0 [facility] Comment on above: Order Comment: speci men rejected due to clot. Phlebotomists notified by message. [facility] 04/02/2023 11:56:19 EST\2nd draw rejected due to clot. Phlebotomists notified by message. [facility] 04/02/2023 12:27:56 EST Result Comment: Demetra meneses with slide review Performed By: #### 2 421257, 8531226, 8263527, 57335348, 56972279, 26469534, 4533178, 89179987 ####[facility] [address] [place] [address] Platelet mean volume (Bld) [Entitic vol] 9.8 fL Normal 6.4-10.8 [facility] Comment on above: Order Comment: speci men rejected due to clot. Phlebotomists notified by message. [facility] 04/02/2023 11:56:19 EST\2nd draw rejected due to clot. Phlebotomists notified by message. [facility] 04/02/2023 12:27:56 EST Performed By: #### 2 038897, 9985674, 0544566, 94986897, 77105022, 04190090, 8897500, 15423787 ####[facility] [address] [place] [address] RBC 4.3 E12/L Normal 4.3-5.9 [facility] Comment on above: Order Comment: speci men rejected due to clot. Phlebotomists notified by message. [facility] 04/02/2023 11:56:19 EST\2nd draw rejected due to clot. Phlebotomists notified by message. [facility] 04/02/2023 12:27:56 EST Performed By: #### 2 991586, 1187489, 1996317, 22840742, 82326430, 42698303, 0222995, 44376108 ####[facility] [address] [place] [address] WBC 5.3 E9/L Normal 4.0-11.0 [facility] Comment on above: Order Comment: speci men rejected due to clot. Phlebotomists notified by message. [facility] 04/02/2023 11:56:19 EST\2nd draw rejected due to clot. Phlebotomists notified by message. [facility] 04/02/2023 12:27:56 EST Performed By: #### 2 184285, 4826762, 2230131, 33017334, 62165021, 41833560, 6303562, 61882649 ####[facility] [address] [place] [address] CHEMISTRYOrdered By: SYSTEM SYSTEM on 04-02-2023 Troponin [...] Sensitivity Troponin I Instructions For Use, Alan [place], September 2017) Albumin [Mass/Vol] 3.9 g/dL Normal [...] Instructions For Use, Alan [place], September 2017) Anion gap [Moles/Vol] 10 mmol/L [...] 25 pg/mL Normal 5 - 80 pg[facility]ATIONOrdered By: Gladys Arroyo on 04-02-2023 aPTT Coag (PPP) [Time] 33.2 s Normal 25.1 - 36.5 second(s) [facility] Comment on above: Interpretive Data: [...] the same coagulation reagent and instrumentation as [facility] Currently there are no coagulation studies available worldwide for children to 14 days, and no normal ranges. Heparin therapeutic range (represented by Anti-Factor Xa activity of 0.2 - 0.4 U/mL) corresponds to PTT of 56.6 - 109.0 sec. Fibrin D-dimer FEU (PPP) [Mass/Vol] 541 ng/mL FEU Invalid Interpretation Code 215 - 500 ng/mL FEU [facility] Comment on above: Result Comment: [...] [Relative time] 1.14 {INR} Invalid Interpretation Code [facility] Comment on above: Interpretive Data: I NR results are specifically intended to assess patients stabilized on long-term Anticoagulation therapy suggested INR s Less Intensive Anticoagulation 2.0 3.0 Conventional Range 3.0 4.5 PT Coag (PPP) [Time] 12.7 s High 9.4 - 12.5 second(s) [facility] Comment on above: Interpretive Data: [...] the same coagulation reagent and instrumentation as [facility]. Currently there are no coagulation studies available worldwide for children to 14 days, and no normal ranges. CTA Abdomen and Pelvison CTA Abdomen and Pelvis Normal [facility] CTA Cheston 04-02-2023 CTA Chest Normal [facility] Consent for Treatmenton 03-18 Consent for Treatment [id number]#1.00TIFF Normal [facility] D-Dimeron 04-02-2023 Fibrin D-dimer FEU (PPP) [Mass/Vol] 541 [id number] Abnormal 215-500 [facility] Comment on above: Order Comment: speci men rejected due to clot. Phlebotomists notified by message. [facility] 04/02/2023 12:33:03 EST Result Comment: Resdidier lts Called To ER/Mauricio López By And [...] skin infectionsLiver cirrhosisPregnancy Performed By: #### 2 621312, 1884086, 7519657, 14274756, 21993392, 33140191, 2881645, 19005528 ####[facility] [address] [place] [address] Discharge Instructionson Discharge Instructions [id number]#1.00TIFF Normal [facility] ED Clinical Summaryon 2023 ED Clinical Summary Normal [facility] ED Note-Physicianon 04-02-19 ED Note-Physician Normal [facility] Comment on above: Result Comment: Elec tronically Signed By: Jose Ramon Martinez, Ashutosh Valles\.br\Date and Time Signed: 04/02/23 17:20 EST ED Patient Education Noteon 04-02-2023 ED Patient Education Note Normal [facility] ED Patient Summaryon 024 ED Patient Summary Normal [facility] Free T4on 04-02-2023 Free T4 [Mass/Vol] 0.75 ng/dL Normal 0.58-1.64 [facility] Comment on above: Performed By: #### 2 223420, 67421822, 7565904, 6091195 ####[facility] [address] [place] [address] HEMATOLOGYOrdered By: SYSTEM SYSTEM on 04-02-2023 Basophil [...] Normal 80.0 - 100.0 fL Rem[facility] Heme Sunflower Absolute 0.4 E9/L Normal 0.2 - 1.0 E9/L [facility] Monocytes/100 WBC (Bld) 7.4 % Normal 4.0 - 14.0 % [facility] Neutro Absolute 2.9 E9/L Normal 2.0 - 7.5 E9/L Remis ol Heme Neutro Auto 54.6 % Normal 36.0 - 75.0 % Remisol He me Platelet 204.0 E9/L Normal 150.0 - 500.0 E9/L [facility] Comment on above: Result Comment: Demetra fied with slide review Platelet mean volume (Bld) [Entitic vol] 9.8 fL Normal 6.4 - 10.8 fL Remisol Heme RBC 4.3 E12/L Normal 4.3 - 5.9 E12/L Remisol H helen WBC 5.3 E9/L Normal 4.0 - 11.0 E9/L Remisol H helen Hep Func Panelon 04-02-2023 Albumin [Mass/Vol] 3.9 g/dL Normal 3.3-5.0 [facility] Comment on above: Performed By: #### 2 220445, 61967905, 1836785, 2867985 ####[facility] [address] [place] [address] Albumin/Globulin [Mass ratio] 1.6 {ratio} Normal 1.1-2.2 [facility] Comment on above: Performed By: #### 2 191603, 37391570, 3344723, 4123430 ####[facility] [address] [place] [address] Alk Phos 50 Int._Unit/L Normal 21-98 [facility] Comment on above: Performed By: #### 2 133069, 10020427, 9938922, 3496577 ####[facility] [address] [place] [address] ALT 27 Int._Unit/L Normal 6-46 [facility] Comment on above: Performed By: #### 2 061203, 05724061, 6540763, 2076649 ####[facility] [address] [place] [address] AST 36 Int._Unit/L Normal 5-43 [facility] Comment on above: Performed By: #### 2 971024, 36038556, 0158251, 2449984 ####[facility] [address] [place] [address] Bili Direct 0.0 mg/dL Normal 0.0-0.4 [facility] Comment on above: Performed By: #### 2 082720, 51432085, 3122461, 3378050 ####[facility] [address] [place] [address] Bili Indirect 0.3 mg/dL Normal 0.1-0.9 [facility] Comment on above: Performed By: #### 2 905513, 98500818, 9654568, 0292325 ####[facility] [address] [place] [address] Bili Total 0.3 mg/dL Normal 0.0-1.1 [facility] Comment on above: Performed By: #### 2 217580, 13078638, 4554299, 2294295 ####[address] [address] Globulin (S) [Mass/Vol] 2.4 g/dL Normal 1.4-4.0 [facility] Comment on above: Performed By: #### 2 510820, [id number], 8967722, 0042357 ####[address] [address] Protein [Mass/Vol] 6.3 g/dL Normal 6.0-7.8 [facility] Comment on above: Performed By: #### 2 774256, [id number], 7187022, 5778878 ####[address] [address] Lipase Levelon 04-02-2023 Lipase Lvl 124 unit/L High 13-58 [facility] Comment on above: Performed By: #### 2 962702, 07330065, 9783818, 4535142 ####[address] [place] [address] Magnesiumon 04-02-2023 Magnesium [Mass/Vol] 1.9 mg/dL Normal 1.3-2.4 [facility] Comment on above: Performed By: #### 2 577572, 1433095, 7395988, 27911498, 25454235, 05302950, 5526741, 70018699 ####[address] [place] [address] PT & PTTon 04-02-2023 aPTT Coag (PPP) [Time] 33.2 second(s) Normal 25.1-36.5 [facility] Comment on above: Order Comment: speci men rejected due to clot. phlebotomists notified of redraw by message. [facility] 04/02/2023 12:33:39 EST Result Comment: Para meter [...] the same coagulation reagent and instrumentation as [facility]. Currently there are no coagulation studies available worldwide for children to 14 days, and no normal ranges. Heparin therapeutic range (represented by Anti-Factor Xa activity of 0.2 - 0.4 U/mL) corresponds to PTT of 56.6 - 109.0 sec. Performed By: #### 2 123619, 2782094, 8661498, 76010193, 65318307, 88855063, 4945869, 79727934 ####[facility] [address] [place] [address] INR Coag (PPP) [Relative time] 1.14 {INR} Invalid Interpretation Code [facility] Comment on above: Order Comment: speci men rejected due to clot. phlebotomists notified of redraw by message. [facility] 04/02/2023 12:33:39 EST Result Comment: INR results are specifically intended to assess patients stabilized on long-term Anticoagulation therapy suggested INR?s ?Less Intensive Anticoagulation? 2.0 ? 3.0Conventional Range 3.0 ? 4.5 Performed By: #### 2 678285, 9353404, 2298078, 42650555, 37771768, 45772847, 9407232, 16965444 ####[facility] [address] [place] [address] PT Coag (PPP) [Time] 12.7 second(s) High 9.4-12.5 [facility] Comment on above: Order Comment: speci men rejected due to clot. phlebotomists notified of redraw by message. [facility] 04/02/2023 12:33:39 EST Result Comment: 15 d [...] the same coagulation reagent and instrumentation as [facility]. Currently there are no coagulation studies available worldwide for children to 14 days, and no normal ranges. Performed By: #### 2 617105, 4961744, 5399479, 09996118, 80565367, 29827996, 4773530, 39360233 ####[facility] [address] [place] [address] Pre-Arrival Noteon Pre-Arrival Note Normal [facility] Progress Note-Nurseon 2023 Progress Note-Nurse CT called and verbalized IV infiltrated when attempting to flush. IV removed per this nurse and attempted to place IV with unsuccessful attempts. Dr. Albright and Sabina, RN aware. Normal [facility] TSH With T4fr Reflexon 04-02 TSH Qn 0.11 m[IU]/L Low 0.34-5.60 [facility] Comment on above: Performed By: #### 2 961720, 33617495, 0304343, 5518795 ####[facility] [address] [place] [address] Troponin 0 Hr.on 04-02-2023 Troponin 2.40 pg/mL Low 10.10-27.10 [facility] Comment on above: Result Comment: The 95% CI (Confidence Interval) PPV (Positive Predictive Value) for myocardial infarction in females is 38 pg/mL, in males 51 pg/mL. The results should be used in conjunction with clinical conditions of myocardial infarction.(Access High Sensitivity Troponin I Instructions For Use, OnLive, September 2017) Performed By: #### 2 530453, 1733443, 7855817, 45024556, 10085102, 30399392, 7824802, 18271041 ####[facility] [address] [place] [address] Troponin 3 Hr.on 04-02-2023 Troponin I.cardiac [Mass/Vol] ng/mL Low 10.10-27.10 [facility] Comment on above: Result Comment: The 95% CI (Confidence Interval) PPV (Positive Predictive Value) for myocardial infarction in females is 38 pg/mL, in males 51 pg/mL. The results should be used in conjunction with clinical conditions of myocardial infarction.(Access High Sensitivity Troponin I Instructions For Use, OnLive, September 2017) Performed By: #### 1 [id number] ####[facility] [address] [place] [address] XR Chest Single Viewon 04-02 XR Chest Single View Normal [facility] eGFRon 04-02-2023 eGFR 116 mL/min/1.73 m2 Normal >=59 [facility] Comment on above: Order Comment: Order added by Discern Expert. Performed By: #### 2 345785, 3616169, 7784013, 56915636, 85485029, 40322518, 1419591, 61426349 ####[facility] [address] [place] [address] Home Health Recordson 2023 Home Health Records [id number] F2#1.00TIFF Normal [facility] Ambulatory Visit Summaryon 0 03-24-2023 Ambulatory Visit Summary Normal [facility] Auth for Release of Medical Recordson 03-24-2023 Auth for Release of Medical Records [id number]#[id number] Normal [facility] Family Medicine Office/Clini c Noteon 03-24-2023 Family Medicine Office/Clinic Note Normal [facility] Comment on above: Result Comment: Elec tronically Signed By: Jaquan Paula.rene\Date and Time Signed: 03/24/23 15:20 EST CBC panel Auto (Bld)on 03-19 Erythrocyte distribution width (RBC) [Ratio] 12.1 % 11.5 - 14.5 % [facility] Hematocrit (Bld) [Volume fraction] 33.7 % Low 36.0 - 46.0 % [facility] Hemoglobin (Bld) [Mass/Vol] 11.9 g/dL Low 12.0 - 16.0 g/dL [facility] Interpretation and review of laboratory results Abnormal [facility] MCH (RBC) [Entitic mass] 30.1 pg 26.0 - 34.0 pg [facility] MCHC (RBC) [Mass/Vol] 35.3 g/dL 32.0 - 36.0 g/dL [facility] MCV (RBC) [Entitic vol] 85 fL 80 - 100 fL [facility] Nucleated RBC/100 WBC (Bld) [Ratio] 0.0 % [facility] Platelets (Bld) [#/Vol] 285 10*3/uL [facility] RBC (Bld) [#/Vol] 3.96 10*6/uL [facility] WBC (Bld) [#/Vol] 4.3 10*3/uL [facility] Erythrocyte distribution width (RBC) [Ratio] 12.1 % Normal 11.5-14.5 [facility] Comment on above: Performed By: #### V ERAB #### MELISA Galvan ([id number]) [facility] ([facility]) [address] [place] [address] [place] Hematocrit (Bld) [Volume fraction] 33.7 % Low 36.0-46.0 [facility] Comment on above: Performed By: #### V ERAB #### MELISA Galvan ([id number]) [facility] ([facility]) [address] [place] [address] [place] Hemoglobin (Bld) [Mass/Vol] 11.9 g/dL Low 12.0-16.0 [facility] Comment on above: Performed By: #### V ERAB #### MELISA Galvan ([id number]) [facility] ([facility]) [address] [place] [address] [place] MCH (RBC) [Entitic mass] 30.1 pg Normal 26.0-34.0 [facility] Comment on above: Performed By: #### V ERAB #### MELISA Galvan () [facility] ([facility]) [address] [place] [address] [place] MCHC (RBC) [Mass/Vol] 35.3 g/dL Normal 32.0-36.0 [facility] Comment on above: Performed By: #### V ERAB #### MELISA Galvan () [facility] ([facility]) [address] [place] [address] [place] MCV (RBC) [Entitic vol] 85 fL Normal 80-100 [facility] Comment on above: Performed By: #### Beth ERAB #### MELISA Galvan () [facility] ([facility]) [address] [place] [address] [place] Nucleated RBC/100 WBC (Bld) [Ratio] 0.0 /100 WBCs Normal 0.0-0.0 [facility] Comment on above: Performed By: #### V ERAB #### MELISA Galvan () [facility] ([facility]) [address] [place] [address] [place] Platelets (Bld) [#/Vol] 285 x10*3/uL Normal 150-450 [facility] Comment on above: Performed By: #### V ERAB #### MELISA Galvan () [facility] ([facility]) [address] [place] [address] [place] RBC (Bld) [#/Vol] 3.96 x10*6/uL Low 4.00-5.20 [facility] Comment on above: Performed By: #### V ERAB #### MELISA POOLESarwat Galvan ([id number]) [facility] ([facility]) [address] [place] [address] [place] WBC (Bld) [#/Vol] 4.3 x10*3/uL Low 4.4-11.3 [facility] Comment on above: Performed By: #### V ERAB #### MELISA ALEXANDRO J ([id number]) [facility] ([facility]) [address] [place] [address] Comprehensive metabolic 2000 panelon 03-19-2023 Albumin [Mass/Vol] 3.2 g/dL Low 3.5 - 5.0 g/dL [facility] ALP (Bld) [Catalytic activity/Vol] 68 U/L 35 - 125 U/L [facility] ALT [Catalytic activity/Vol] 14 U/L 5 - 40 U/L [facility] Anion gap [Moles/Vol] 13 mmol/L NINF - 19 mmol/L [facility] AST [Catalytic activity/Vol] 27 U/L 5 - 40 U/L [facility] Bilirubin [Mass/Vol] 0.4 mg/dL 0.1 - 1.2 mg/dL [facility] Calcium [Mass/Vol] 8.7 mg/dL 8.5 - 10.4 mg/dL [facility] Chloride [Moles/Vol] 106 mmol/L 97 - 107 mmol/L [facility] CO2 [Moles/Vol] 21 mmol/L Low 24 - 31 mmol/L [facility] Creatinine [Mass/Vol] 0.60 mg/dL 0.40 - 1.60 mg/dL [facility] eGFR - PINF [facility] Comment on above: Calculations of jessica mated GFR are performed using the 2020 CKD-EPI Study Refit equation without the race variable for the IDMS-Traceable creatinine methods. https://jasn.asnjournals.org/content//ASN.98172420 88 Glucose [Mass/Vol] 98 mg/dL 65 - 99 mg/dL [facility] Interpretation and review of laboratory results Abnormal [facility] Potassium [Moles/Vol] 3.7 mmol/L 3.4 - 5.1 mmol/L [facility] Protein [Mass/Vol] 5.7 g/dL Low 5.9 - 7.9 g/dL [facility] Sodium [Moles/Vol] 140 mmol/L 133 - 145 mmol/L [facility] Urea nitrogen [Mass/Vol] 5 mg/dL Low 8 - 25 mg/dL [facility] Albumin [Mass/Vol] 3.2 g/dL Low 3.5-5.0 [facility] Comment on above: Performed By: #### Beth ERAB #### MELISA Galvan ([id number]) [facility] ([facility]) [address] [place] [address] [place] ALP (Bld) [Catalytic activity/Vol] 68 U/L Normal 35-125 [facility] Comment on above: Performed By: #### Beth ERAB #### MELISA Galvan ([id number]) [facility] ([facility]) [address] [place] [address] [place] ALT [Catalytic activity/Vol] 14 U/L Normal 5-40 [facility] Comment on above: Performed By: #### Beth ERAB #### MELISA Galvan ([id number]) [facility] ([facility]) [address] [place] [address] [place] Anion gap [Moles/Vol] 13 mmol/L Normal <=19 [facility] Comment on above: Performed By: #### Beth ERAB #### MELISA Galvan ([id number]) [facility] ([facility]) [address] [place] [address] [place] AST [Catalytic activity/Vol] 27 U/L Normal 5-40 [facility] Comment on above: Performed By: #### Beth ERAB #### MELISA Galvan ([id number]) [facility] ([facility]) [address] [place] [address] [place] Bilirubin [Mass/Vol] 0.4 mg/dL Normal 0.1-1.2 [facility] Comment on above: Performed By: #### V ERAB #### MELISA Galvan ([id number]) [facility] ([facility]) [address] [place] [address] [place] Calcium [Mass/Vol] 8.7 mg/dL Normal 8.5-10.4 [facility] Comment on above: Performed By: #### V ERAB #### MELISA Galvan ([id number]) [facility] ([facility]) [address] [place] [address] [place] Chloride [Moles/Vol] 106 mmol/L Normal 97-107 [facility] Comment on above: Performed By: #### V ERAB #### MELISA Galvan ([id number]) [facility] ([facility]) [address] [place] [address] [place] CO2 [Moles/Vol] 21 mmol/L Low 24-31 [facility] Comment on above: Performed By: #### V ERAB #### MELISA Galvan ([id number]) [facility] ([facility]) [address] [place] [address] [place] Creatinine [Mass/Vol] 0.60 mg/dL Normal 0.40-1.60 [facility] Comment on above: Performed By: #### V ERAB #### MELISA Galvan ([id number]) [facility] ([facility]) [address] [place] [address] [place] GFR/1.73 sq M.predicted MDRD (S/P/Bld) [Vol rate/Area] mL/min/{1.73_m2} Normal >60 [facility] Comment on above: Result Comment: Calc ulations of estimated GFR are performed using the 2020 CKD-EPI Study Refit equation without the race variable for the IDMS-Traceable creatinine methods. https://jasn.asnjournals.org/content///ASN.58985493 88 Performed By: #### V ERAB #### MELISA Galvan ([id number]) [facility] ([facility]) [address] [place] [address] [place] Glucose [Mass/Vol] 98 mg/dL Normal 65-99 [facility] Comment on above: Performed By: #### V ERAB #### MELISA POOLESarwat Galvan ([id number]) [facility] ([facility]) [address] [place] [address] [place] Potassium [Moles/Vol] 3.7 mmol/L Normal 3.4-5.1 [facility] Comment on above: Performed By: #### V ERAB #### MELISA ALEXANDRO J ([id number]) [facility] ([facility]) [address] [place] [address] [place] Protein [Mass/Vol] 5.7 g/dL Low 5.9-7.9 [facility] Comment on above: Performed By: #### V ERAB #### MELISA ALEXANDRO J ([id number]) [facility] ([facility]) [address] [place] [address] [place] Sodium [Moles/Vol] 140 mmol/L Normal 133-145 [facility] Comment on above: Performed By: #### V ERAB #### MELISA ALEXANDRO J ([id number]) [facility] [address] [place] [address] [place] Urea nitrogen [Mass/Vol] 5 mg/dL Low 8-25 [facility] Comment on above: Performed By: #### V ERAB #### MELISA ALEXANDRO J ([id number]) [facility] ([facility]) [address] [place] [address] [place] EGDon 03-19-2023 Esophagogastroduode noscopy Table formatting from the original result was not included. Normal [facility] EGD Study observation Narrat iveon 03-19-2023 Table [...] STOMACH ANTRUM BIOPSY SURGICAL PATHOLOGY EXAM Tomasa Keyes, DEE 03/19/2023 1431 Procedure Location [address] [address] Referring Provider Generic Provider Coy No address on file Procedure Provider No name on file [facility] Work Phone: Radiology Study observation (narrative) [facility] Work Phone: EGD Study observation Narrat iveOrdered By: Eve Agosto on 03-19-2023 [facility] Work Phone: Home Health Recordson 2023 Home Health Records [id number] [id number] [facility] Surgical pathology studyon 0 03-19-2023 Surgical pathology study Pathology report.total SEE COMMENT Surgical Pathology Case: [id number] Authorizing Provider: Eve Agosto MD Collected: 03/19/2023 1431 Ordering Location: [facility] Received: 03/19/2023 [facility] Pathologist: Melisa Mc MD Specimen: STOMACH ANTRUM [...] is submitted in toto in 1 cassette. [facility] Gross dissection performed at: [address] [address] Normal [facility] CBC panel Auto (Bld)on 03-18 Erythrocyte distribution width (RBC) [Ratio] 12.5 % 11.5 - 14.5 % [facility] Hematocrit (Bld) [Volume fraction] 37.2 % 36.0 - 46.0 % [facility] Hemoglobin (Bld) [Mass/Vol] 12.1 g/dL 12.0 - 16.0 g/dL [facility] Interpretation and review of laboratory results Abnormal [facility] MCH (RBC) [Entitic mass] 30.0 pg 26.0 - 34.0 pg [facility] MCHC (RBC) [Mass/Vol] 32.5 g/dL 32.0 - 36.0 g/dL [facility] MCV (RBC) [Entitic vol] 92 fL 80 - 100 fL [facility] Nucleated RBC/100 WBC (Bld) [Ratio] 0.0 % [facility] Platelets (Bld) [#/Vol] 266 10*3/uL [facility] RBC (Bld) [#/Vol] 4.03 10*6/uL [facility] WBC (Bld) [#/Vol] 4.0 10*3/uL Low [facility] Erythrocyte distribution width (RBC) [Ratio] 12.5 % Normal 11.5-14.5 [facility] Comment on above: Performed By: #### 5 8410-2 ####MELISA Galvan ([id number])[facility] ()[address] [place] [address] Hematocrit (Bld) [Volume fraction] 37.2 % Normal 36.0-46.0 [facility] Comment on above: Performed By: #### 5 8410-2 ####MELISA Galvan ([id number])[facility] ()[address] [place] [address] Hemoglobin (Bld) [Mass/Vol] 12.1 g/dL Normal 12.0-16.0 [facility] Comment on above: Performed By: #### 5 8410-2 ####MELSIA Galvna ([id number])[facility] ()[address] [place] [address] MCH (RBC) [Entitic mass] 30.0 pg Normal 26.0-34.0 [facility] Comment on above: Performed By: #### 5 8410-2 ####MELISA Galvan ([id number])[facility] ()[address] [place] [address] MCHC (RBC) [Mass/Vol] 32.5 g/dL Normal 32.0-36.0 [facility] Comment on above: Performed By: #### 5 8410-2 ####MELISA Galvan ([id number])[facility] ()[address] [place] [address] MCV (RBC) [Entitic vol] 92 fL Normal 80-100 [facility] Comment on above: Performed By: #### 5 8410-2 ####MELISA Galvan ([id number])[facility] ()[address] [place] [address] Nucleated RBC/100 WBC (Bld) [Ratio] 0.0 /100 WBCs Normal 0.0-0.0 [facility] Comment on above: Performed By: #### 5 8410-2 ####MELISA Galvan ([id number])[facility] ()[address] [place] [address] Platelets (Bld) [#/Vol] 266 x10*3/uL Normal 150-450 [facility] Comment on above: Performed By: #### 5 8410-2 ####MELISA Galvan ([id number])[facility] ()[address] [place] [address] RBC (Bld) [#/Vol] 4.03 x10*6/uL Normal 4.00-5.20 [facility] Comment on above: Performed By: #### 5 8410-2 ####MELISA Galvan ([id number])[facility] ()[address] [place] [address] WBC (Bld) [#/Vol] 4.0 x10*3/uL Low 4.4-11.3 [facility] Comment on above: Performed By: #### 5 8410-2 ####MELISA Galvan ([id number])[facility] ()[address] [place] [address] Comprehensive metabolic 2000 panelon 03-18-2023 Albumin [Mass/Vol] 3.0 g/dL Low 3.5 - 5.0 g/dL [facility] ALP (Bld) [Catalytic activity/Vol] 66 U/L 35 - 125 U/L [facility] ALT [Catalytic activity/Vol] 17 U/L 5 - 40 U/L [facility] Anion gap [Moles/Vol] 10 mmol/L NINF - 19 mmol/L [facility] AST [Catalytic activity/Vol] 33 U/L 5 - 40 U/L [facility] Bilirubin [Mass/Vol] 0.3 mg/dL 0.1 - 1.2 mg/dL [facility] Calcium [Mass/Vol] 8.4 mg/dL Low 8.5 - 10.4 mg/dL [facility] Chloride [Moles/Vol] 108 mmol/L High 97 - 107 mmol/L [facility] CO2 [Moles/Vol] 19 mmol/L Low 24 - 31 mmol/L [facility] Creatinine [Mass/Vol] 0.80 mg/dL 0.40 - 1.60 mg/dL [facility] eGFR - PINF [facility] Comment on above: Calculations of jessica mated GFR are performed using the 2020 CKD-EPI Study Refit equation without the race variable for the IDMS-Traceable creatinine methods. https://jasn.asnjournals.org/content//ASN.01928903 88 Glucose [Mass/Vol] 79 mg/dL 65 - 99 mg/dL [facility] Interpretation and review of laboratory results Abnormal [facility] Potassium [Moles/Vol] 3.8 mmol/L 3.4 - 5.1 mmol/L [facility] Protein [Mass/Vol] 5.7 g/dL Low 5.9 - 7.9 g/dL [facility] Sodium [Moles/Vol] 137 mmol/L 133 - 145 mmol/L [facility] Urea nitrogen [Mass/Vol] 5 mg/dL Low 8 - 25 mg/dL [facility] Albumin [Mass/Vol] 3.0 g/dL Low 3.5-5.0 [facility] Comment on above: Performed By: #### 2 4323-8 ####MELISA Galvan ([id number])[facility] ()[address] [place] [address] ALP (Bld) [Catalytic activity/Vol] 66 U/L Normal 35-125 [facility] Comment on above: Performed By: #### 2 4323-8 ####MELISA Galvan ([id number])[facility] ()[address] [place] [address] ALT [Catalytic activity/Vol] 17 U/L Normal 5-40 [facility] Comment on above: Performed By: #### 2 432-8 ####MELISA Galvan (83759)[facility] ()[address] [place] [address] Anion gap [Moles/Vol] 10 mmol/L Normal <=19 [facility] Comment on above: Performed By: #### 2 432-8 ####MELISA Galvan ([id number])[facility] ()[address] [place] [address] AST [Catalytic activity/Vol] 33 U/L Normal 5-40 [facility] Comment on above: Performed By: #### 2 432-8 ####MELISA Galvan ([id number])[facility] ()[address] [place] [address] Bilirubin [Mass/Vol] 0.3 mg/dL Normal 0.1-1.2 [facility] Comment on above: Performed By: #### 2 4323-8 ####MELISA Galvan ([id number])[facility] ()[address] [place] [address] Calcium [Mass/Vol] 8.4 mg/dL Low 8.5-10.4 [facility] Comment on above: Performed By: #### 2 4323-8 ####MELISA Galvan ([id number])[facility] ()[address] [place] [address] Chloride [Moles/Vol] 108 mmol/L High 97-107 [facility] Comment on above: Performed By: #### 2 4323-8 ####MELISA Galvan ([id number])[facility] ()[address] [place] [address] CO2 [Moles/Vol] 19 mmol/L Low 24-31 [facility] Comment on above: Performed By: #### 2 4323-8 ####MELISA Galvan ([id number])[facility] ()[address] [place] [address] Creatinine [Mass/Vol] 0.80 mg/dL Normal 0.40-1.60 [facility] Comment on above: Performed By: #### 2 4323-8 ####MELISA Galvan ([id number])[facility] ()[address] [place] [address] GFR/1.73 sq M.predicted MDRD (S/P/Bld) [Vol rate/Area] mL/min/{1.73_m2} Normal >60 [facility] Comment on above: Result Comment: Calc ulations of estimated GFR are performed using the 2020 CKD-EPI Study Refit equation without the race variable for the IDMS-Traceable creatinine methods. https://jasn.asnjournals.org/content///ASN.36528713 88 Performed By: #### 2 4323-8 ####MELISA Galvan ([id number])[facility] ()[address] [place] [address] Glucose [Mass/Vol] 79 mg/dL Normal 65-99 [facility] Comment on above: Performed By: #### 2 4323-8 ####MELISA Galvan ([id number])[facility] ()[address] [place] [address] Potassium [Moles/Vol] 3.8 mmol/L Normal 3.4-5.1 [facility] Comment on above: Performed By: #### 2 4323-8 ####MELISA Galvan (59254)[facility] [facility] ()[address] [place] [address] Protein [Mass/Vol] 5.7 g/dL Low 5.9-7.9 [facility] Comment on above: Performed By: #### 2 4323-8 ####MELISA Galvan ([id number])[facility] ()[address] [place] [place] [address] Sodium [Moles/Vol] 137 mmol/L Normal 133-145 [facility] Comment on above: Performed By: #### 2 4323-8 ####MELISA Galvan ([id number])[facility] ()[address] [place] [address] Urea nitrogen [Mass/Vol] 5 mg/dL Low 8-25 [facility] Comment on above: Performed By: #### 2 4323-8 ####MELISA Galvan ([id number])[facility] ()[address] [place] [address] CBC panel Auto (Bld)on 03-17 Erythrocyte distribution width (RBC) [Ratio] 12.5 % 11.5 - 14.5 % [facility] Hematocrit (Bld) [Volume fraction] 34.9 % Low 36.0 - 46.0 % [facility] Hemoglobin (Bld) [Mass/Vol] 11.5 g/dL Low 12.0 - 16.0 g/dL [facility] Interpretation and review of laboratory results Abnormal [facility] MCH (RBC) [Entitic mass] 30.2 pg 26.0 - 34.0 pg [facility] MCHC (RBC) [Mass/Vol] 33.0 g/dL 32.0 - 36.0 g/dL [facility] MCV (RBC) [Entitic vol] 92 fL 80 - 100 fL [facility] Nucleated RBC/100 WBC (Bld) [Ratio] 0.0 % [facility] Platelets (Bld) [#/Vol] 268 10*3/uL [facility] RBC (Bld) [#/Vol] 3.81 10*6/uL [facility] WBC (Bld) [#/Vol] 5.0 10*3/uL [facility] Erythrocyte distribution width (RBC) [Ratio] 12.5 % Normal 11.5-14.5 [facility] Comment on above: Performed By: #### 5 8410-2 ####MELISA Galvan ([id number])[facility] ()[address] [place] [address] Hematocrit (Bld) [Volume fraction] 34.9 % Low 36.0-46.0 [facility] Comment on above: Performed By: #### 5 8410-2 ####MELISA Galvan ([id number])[facility] ()[address] [place] [address] Hemoglobin (Bld) [Mass/Vol] 11.5 g/dL Low 12.0-16.0 [facility] Comment on above: Performed By: #### 5 8410-2 ####MELISA Galvan ([id number])[facility] ()[address] [place] [address] MCH (RBC) [Entitic mass] 30.2 pg Normal 26.0-34.0 [facility] Comment on above: Performed By: #### 5 8410-2 ####MELISA Galvan ([id number])[facility] ()[address] [place] [address] MCHC (RBC) [Mass/Vol] 33.0 g/dL Normal 32.0-36.0 [facility] Comment on above: Performed By: #### 5 8410-2 ####MELISA Galvan ([id number])[facility] ()[address] [place] [address] MCV (RBC) [Entitic vol] 92 fL Normal 80-100 [facility] Comment on above: Performed By: #### 5 8410-2 ####MELISA Galvan ([id number])[facility] ()[address] [place] [address] Nucleated RBC/100 WBC (Bld) [Ratio] 0.0 /100 WBCs Normal 0.0-0.0 [facility] Comment on above: Performed By: #### 5 8410-2 ####MELISA Galvan ([id number])[facility] ()[address] [place] [address] Platelets (Bld) [#/Vol] 268 x10*3/uL Normal 150-450 [facility] Comment on above: Performed By: #### 5 8410-2 ####MELISA Galvan ([id number])[facility] ()[address] [place] [address] RBC (Bld) [#/Vol] 3.81 x10*6/uL Low 4.00-5.20 [facility] Comment on above: Performed By: #### 5 8410-2 ####MELISA Galvan ([id number])[facility] ()[address] [place] [address] WBC (Bld) [#/Vol] 5.0 x10*3/uL Normal 4.4-11.3 [facility] Comment on above: Performed By: #### 5 8410-2 ####MELISA Galvan ([id number])[facility] ()[address] [place] [address] Comprehensive metabolic 2000 panelon 03-17-2023 Albumin [Mass/Vol] 3.3 g/dL Low 3.5 - 5.0 g/dL [facility] ALP (Bld) [Catalytic activity/Vol] 61 U/L 35 - 125 U/L [facility] ALT [Catalytic activity/Vol] 17 U/L 5 - 40 U/L [facility] Anion gap [Moles/Vol] 10 mmol/L NINF - 19 mmol/L [facility] AST [Catalytic activity/Vol] 31 U/L 5 - 40 U/L [facility] Bilirubin [Mass/Vol] 0.2 mg/dL 0.1 - 1.2 mg/dL [facility] Calcium [Mass/Vol] 8.1 mg/dL Low 8.5 - 10.4 mg/dL [facility] Chloride [Moles/Vol] 112 mmol/L High 97 - 107 mmol/L [facility] CO2 [Moles/Vol] 21 mmol/L Low 24 - 31 mmol/L [facility] Creatinine [Mass/Vol] 0.80 mg/dL 0.40 - 1.60 mg/dL [facility] eGFR - PINF [facility] Comment on above: Calculations of jessica mated GFR are performed using the 2020 CKD-EPI Study Refit equation without the race variable for the IDMS-Traceable creatinine methods. https://jasn.asnjournals.org/content//ASN.21991500 88 Glucose [Mass/Vol] 122 mg/dL High 65 - 99 mg/dL [facility] Interpretation and review of laboratory results Abnormal [facility] Potassium [Moles/Vol] 4.3 mmol/L 3.4 - 5.1 mmol/L [facility] Protein [Mass/Vol] 5.7 g/dL Low 5.9 - 7.9 g/dL [facility] Sodium [Moles/Vol] 143 mmol/L 133 - 145 mmol/L [facility] Urea nitrogen [Mass/Vol] 5 mg/dL Low 8 - 25 mg/dL [facility] Albumin [Mass/Vol] 3.3 g/dL Low 3.5-5.0 [facility] Comment on above: Performed By: #### 2 4323-8 ####MELISA Galvan ([id number])[facility] ()[address] [place] [address] ALP (Bld) [Catalytic activity/Vol] 61 U/L Normal 35-125 [facility] Comment on above: Performed By: #### 2 4323-8 ####MELISA Galvan ([id number])[facility] ()[address] [address] ALT [Catalytic activity/Vol] 17 U/L Normal 5-40 [facility] Comment on above: Performed By: #### 2 4323-8 ####MELISA Galvan ([id number])[facility] ()[address] [place] [address] Anion gap [Moles/Vol] 10 mmol/L Normal <=19 [facility] Comment on above: Performed By: #### 2 432-8 ####MELISA Galvan ([id number])[facility] ()[address] [place] [address] AST [Catalytic activity/Vol] 31 U/L Normal 5-40 [facility] Comment on above: Performed By: #### 2 432-8 ####MELISA Galvan ([id number])[facility] ()[address] [place] [address] Bilirubin [Mass/Vol] 0.2 mg/dL Normal 0.1-1.2 [facility] Comment on above: Performed By: #### 2 432-8 ####MELISA Galvan ([id number])[facility] ()[address] [place] [address] Calcium [Mass/Vol] 8.1 mg/dL Low 8.5-10.4 [facility] Comment on above: Performed By: #### 2 4323-8 ####MELISA Galvan ([id number])[facility] ()[address] [place] [address] Chloride [Moles/Vol] 112 mmol/L High 97-107 [facility] Comment on above: Performed By: #### 2 4323-8 ####MELISA Galvan ([id number])[facility] ()[address] [place] [address] CO2 [Moles/Vol] 21 mmol/L Low 24-31 [facility] Comment on above: Performed By: #### 2 4323-8 ####MELISA Galvan ([id number])[facility] ()[address] [place] [address] Creatinine [Mass/Vol] 0.80 mg/dL Normal 0.40-1.60 [facility] Comment on above: Performed By: #### 2 4323-8 ####MELISA Galvan ([id number])[facility] ()[address] [place] [address] GFR/1.73 sq M.predicted MDRD (S/P/Bld) [Vol rate/Area] mL/min/{1.73_m2} Normal >60 [facility] Comment on above: Result Comment: Calc ulations of estimated GFR are performed using the 2020 CKD-EPI Study Refit equation without the race variable for the IDMS-Traceable creatinine methods. https://jasn.asnjournals.org/content//ASN.99388121 88 Performed By: #### 2 4323-8 ####MELISA Galvan ([id number])[facility] ()[address] [place] [address] Glucose [Mass/Vol] 122 mg/dL High 65-99 [facility] Comment on above: Performed By: #### 2 4323-8 ####MELISA Galvan ([id number])[facility] ()[address] [place] [address] Potassium [Moles/Vol] 4.3 mmol/L Normal 3.4-5.1 [facility] Comment on above: Performed By: #### 2 4323-8 ####MELISA Galvan ([id number])[facility] ()[address] [place] [address] Protein [Mass/Vol] 5.7 g/dL Low 5.9-7.9 [facility] Comment on above: Performed By: #### 2 4323-8 ####MELISA Galvan ([id number])[facility] ()[address] [place] [address] Sodium [Moles/Vol] 143 mmol/L Normal 133-145 [facility] Comment on above: Performed By: #### 2 4323-8 ####MELISA POOLESarwat Galvan ([id number])[facility] ()[address] [place] [address] Urea nitrogen [Mass/Vol] 5 mg/dL Low 8-25 [facility] Comment on above: Performed By: #### 2 4323-8 ####MELISA MC Mandy ([id number])[facility] ()[address] [place] [address] FL UPPER GI W DOUBLE CONTRAS T W SMALL BOWEL FOLLOW THROUGHon 03-17-2023 FL UPPER GI W DOUBLE CONTRAST W SMALL BOWEL FOLLOW THROUGH Interpreted By: Corie Garza, ADDENDUM: The exam was a single contrast upper GI with small-bowel follow-through Signed by: Corie Garza 04/01/2023 12:58 PM -------- ORIGINAL REPORT -------- Dictation workstation: [id number] Interpreted By: Corie Garza, STUDY: FL UPPER GI W DOUBLE CONTRAST W SMALL BOWEL FOLLOW THROUGH; 03/17/2023 4:40 pm INDICATION: Signs/Symptoms:abdo kerry pain. COMPARISON: None. ACCESSION NUMBER(S): [id number] ORDERING CLINICIAN: TIFFANIE MENDEZ TECHNIQUE: Multiple fluoroscopic spot images were obtained during a single contrast upper GI with KUB. 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 No evidence for obstruction.. MACRO: none Signed by: Corie Garza 03/17/2023 5:00 PM Dictation workstation: [id number] MMODAL Interpreted By: Corie Garza, STUDY: FL UPPER GI W DOUBLE CONTRAST W SMALL BOWEL FOLLOW THROUGH; 03/17/2023 4:40 pm INDICATION: Signs/Symptoms:abdo kerry pain. COMPARISON: None. ACCESSION NUMBER(S): [id number] ORDERING CLINICIAN: TIFFANIE MENDEZ TECHNIQUE: Multiple fluoroscopic spot images were obtained during a single contrast upper GI with KUB. 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 COMPARISON: None. ACCESSION NUMBER(S): [id number] ORDERING CLINICIAN: TIFFANIE MENDEZ TECHNIQUE: Multiple fluoroscopic spot images were obtained during a single contrast upper GI with KUB. 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 ACCESSION NUMBER(S): [id number] ORDERING CLINICIAN: TIFFANIE MENDEZ TECHNIQUE: AP erect view of the chest FINDINGS: The nasogastric tube has not changed in placement with the tip seen within the proximal thoracic esophagus. Heart and mediastinum are normally visualized. Lungs are clear. IMPRESSION: Distal tip of nasogastric tube in proximal thoracic esophagus just above the aortic arch. Signed by: Nya Ahmadi 03/17/2023 8:19 PM Dictation workstation: [id number] [facility] XR CHEST 1 VIEW Interpreted By: Corie Garza, STUDY: XR CHEST 1 VIEW; 03/17/2023 12:41 pm INDICATION: Signs/Symptoms:Stat us post NG tube placement. COMPARISON: None available ACCESSION NUMBER(S): [id number] ORDERING CLINICIAN: TIFFANIE MENDEZ FINDINGS: RESULT: Nasogastric [...] Corie Garza 03/17/2023 4:19 PM Dictation workstation: [id number] [facility] XR Chest Single viewon 03-17 Distal tip of nasogastric tube in proximal thoracic esophagus just above the aortic arch. Signed by: Nya Ahmadi 03/17/2023 8:19 PM Dictation workstation: [id number]AL Interpreted By: Nya Ahmadi, STUDY: XR CHEST 1 VIEW 03/17/2023 7:09 pm INDICATION: Signs/Symptoms:S/p NG placement COMPARISON: 03/17/2023 done at 2:05 p.m. ACCESSION NUMBER(S): [id number] ORDERING CLINICIAN: TIFFANIE MENDEZ TECHNIQUE: AP erect [...] 03/17/2023 done at 2:05 p.m. ACCESSION NUMBER(S): [id number] ORDERING CLINICIAN: TIFFANIE MENDEZ TECHNIQUE: AP erect view of the chest FINDINGS: The nasogastric tube has not changed in placement with the tip seen within the proximal thoracic esophagus. Heart and mediastinum are normally visualized. Lungs are clear. IMPRESSION: Distal tip of nasogastric tube in proximal thoracic esophagus just above the aortic arch. Signed by: Nya Ahmadi 03/17/2023 8:19 PM Dictation workstation: [id number] [facility] Work Phone: Radiology Study observation (narrative) [facility] Work Phone: Nasogastric tube tip is noted at the level of the upper esophagus at the level of the clavicular heads. The nasogastric tube removed itself from the patient soon after this exam. Signed by: Corie Garza 03/17/2023 4:19 PM Dictation workstation: [id number] MMODAL Interpreted By: Corie Garza, STUDY: XR CHEST 1 VIEW; 03/17/2023 12:41 pm INDICATION: Signs/Symptoms:Stat us post NG tube placement. COMPARISON: None available ACCESSION NUMBER(S): [id number] ORDERING CLINICIAN: TIFFANIE MENDEZ FINDINGS: RESULT: Nasogastric tube is noted with tip in the upper esophagus at the level of the clavicular heads. The cardiac silhouette is within normal limits for size. Mediastinal contours are unremarkable. The lungs demonstrate no infiltrate or area of atelectasis. The osseous structures are unremarkable. MMODAL Corie Garza MD - 03/17/2023 Interpreted By: Corie Garza, STUDY: XR CHEST 1 VIEW; 03/17/2023 12:41 pm INDICATION: Signs/Symptoms:Stat us post NG tube placement. COMPARISON: None available ACCESSION NUMBER(S): [id number] ORDERING CLINICIAN: TIFFANIE MENDEZ FINDINGS: RESULT: Nasogastric [...] Corie Garza 03/17/2023 4:19 PM Dictation workstation: [id number] [facility] Work Phone: [facility] Work Phone: Radiology Study observation (narrative) [facility] Work Phone: XR Chest Single viewOrdered By: Nya Ahmadi on 03-17-2023 [facility] Work Phone: BMPon 03-16-2023 Anion gap [Moles/Vol] 11 mmol/L Normal 6-16 [facility] Comment on above: Performed By: #### 2 875773, [id number], 8193835, 1309708, 5174632, 1913546 ####[facility] [address] [place] [address] BUN/Creat Ratio 10 No Units Normal 10-20 [facility] Comment on above: Performed By: #### 2 352669, 68554728, 9467077, 1185565, 8033744, 0902010 ####[facility] [address] [place] [address] Calcium [Mass/Vol] 8.5 mg/dL Low 8.9-11.1 [facility] Comment on above: Performed By: #### 2 614020, 40821067, 6199575, 7141047, 0478867, 9255367 ####[facility] [address] [place] [address] Chloride [Moles/Vol] 109 mmol/L Normal 101-111 [facility] Comment on above: Performed By: #### 2 931463, 77184868, 7580481, 7273369, 4267641, 6210769 ####[facility] [address] [place] [address] CO2 [Moles/Vol] 24 mmol/L Normal 21-31 [facility] Comment on above: Performed By: #### 2 021216, 90112351, 9382769, 5992787, 7612303, 5645478 ####[facility] [address] [place] [address] Creatinine [Mass/Vol] 0.8 mg/dL Normal 0.5-1.3 [facility] Comment on above: Performed By: #### 2 415056, 99925355, 3076373, 3950258, 6316308, 8736728 ####[facility] [address] [place] [address] Glucose [Mass/Vol] 77 mg/dL Normal 55-199 [facility] Comment on above: Performed By: #### 2 892014, 66798355, 3055326, 2033494, 3744155, 0546615 ####[facility] [address] [place] [address] Potassium [Moles/Vol] 3.7 mmol/L Normal 3.5-5.3 [facility] Comment on above: Performed By: #### 2 845641, 88408740, 3452707, 1657581, 7007013, 4518689 ####[facility] [address] [place] [address] Sodium [Moles/Vol] 140 mmol/L Normal 135-145 [facility] Comment on above: Performed By: #### 2 363135, 39685617, 6359023, 1162668, 6196490, 9287540 ####[facility] [address] [place] [address] Urea nitrogen [Mass/Vol] 8 mg/dL Normal 5-21 [facility] Comment on above: Performed By: #### 2 452439, 86031055, 2770097, 6778743, 3271721, 0123335 ####[facility] [address] [place] [address] CBC W Auto Differential pane l (Bld)on 03-16-2023 Basophils (Bld) [#/Vol] 0.07 10*3/uL [facility] Basophils/100 WBC (Bld) 1.4 % 0.0 - 2.0 % [facility] Eosinophils (Bld) [#/Vol] 0.50 10*3/uL [facility] Eosinophils/100 WBC (Bld) 9.9 % 0.0 - 6.0 % [facility] Erythrocyte distribution width (RBC) [Ratio] 12.3 % 11.5 - 14.5 % [facility] Hematocrit (Bld) [Volume fraction] 33.4 % Low 36.0 - 46.0 % [facility] Hemoglobin (Bld) [Mass/Vol] 10.8 g/dL Low 12.0 - 16.0 g/dL [facility] Immature granulocytes (Bld) [#/Vol] 0.01 10*3/uL [facility] Immature granulocytes/100 WBC (Bld) 0.2 % 0.0 - 0.9 % [facility] Comment on above: Immature Granulocyte Count (IG) includes promyelocytes, myelocytes and metamyelocytes but does not include bands. Percent differential counts (%) should be interpreted in the context of the absolute cell counts (cells/UL). Interpretation and review of laboratory results Abnormal [facility] Lymphocytes (Bld) [#/Vol] 1.70 10*3/uL [facility] Lymphocytes/100 WBC (Bld) 33.7 % 13.0 - 44.0 % [facility] MCH (RBC) [Entitic mass] 30.5 pg 26.0 - 34.0 pg [facility] MCHC (RBC) [Mass/Vol] 32.3 g/dL 32.0 - 36.0 g/dL [facility] MCV (RBC) [Entitic vol] 94 fL 80 - 100 fL [facility] Monocytes (Bld) [#/Vol] 0.31 10*3/uL [facility] Monocytes/100 WBC (Bld) 6.2 % 2.0 - 10.0 % [facility] Neutrophils (Bld) [#/Vol] 2.45 10*3/uL [facility] Comment on above: Percent differential counts (%) should be interpreted in the context of the absolute cell counts (cells/uL). Neutrophils/100 WBC (Bld) 48.6 % 40.0 - 80.0 % [facility] Nucleated RBC/100 WBC (Bld) [Ratio] 0.0 % [facility] Platelets (Bld) [#/Vol] 273 10*3/uL [facility] RBC (Bld) [#/Vol] 3.54 10*6/uL Low [facility] WBC (Bld) [#/Vol] 5.0 10*3/uL [facility] Basophils (Bld) [#/Vol] 0.07 x10*3/uL Normal 0.00-0.10 [facility] Comment on above: Performed By: #### 5 7021-8 ####MELISA Galvan ([id number])[facility] ()[address] [place] [address] Basophils/100 WBC (Bld) 1.4 % Normal 0.0-2.0 [facility] Comment on above: Performed By: #### 5 7021-8 ####MELISA Galvan ([id number])[facility] ()[address] [place] [address] Eosinophils (Bld) [#/Vol] 0.50 x10*3/uL Normal 0.00-0.70 [facility] Comment on above: Performed By: #### 5 7021-8 ####MELISA Galvan ([id number])[facility] ()[address] [place] [address] Eosinophils/100 WBC (Bld) 9.9 % Normal 0.0-6.0 [facility] Comment on above: Performed By: #### 5 7021-8 ####MELISA Galvan ([id number])[facility] ()[address] [place] [address] Erythrocyte distribution width (RBC) [Ratio] 12.3 % Normal 11.5-14.5 [facility] Comment on above: Performed By: #### 5 7021-8 ####MELISA Galvan (22385)[facility] ()[address] [place] [address] Hematocrit (Bld) [Volume fraction] 33.4 % Low 36.0-46.0 [facility] Comment on above: Performed By: #### 5 7021-8 ####MELISA Galvan ([id number])[facility] ()[address] [place] [address] Hemoglobin (Bld) [Mass/Vol] 10.8 g/dL Low 12.0-16.0 [facility] Comment on above: Performed By: #### 5 7021-8 ####MELISA Galvan (26921)[facility] ()[address] [place] [address] Immature granulocytes (Bld) [#/Vol] 0.01 x10*3/uL Normal 0.00-0.70 [facility] Comment on above: Performed By: #### 5 7021-8 ####MELISA Galvan (46898)[facility] ()[address] [place] [address] Immature granulocytes/100 WBC (Bld) 0.2 % Normal 0.0-0.9 [facility] Comment on above: Result Comment: Janny ture Granulocyte Count (IG) includes promyelocytes, myelocytes and metamyelocytes but does not include bands. Percent differential counts (%) should be interpreted in the context of the absolute cell counts (cells/UL). Performed By: #### 5 7021-8 ####MELISA Galvan (07996)[facility] ()[address] [place] [address] Lymphocytes (Bld) [#/Vol] 1.70 x10*3/uL Normal 1.20-4.80 [facility] Comment on above: Performed By: #### 5 7021-8 ####MELISA Galvan ([id number])[facility] ()[address] [place] [address] Lymphocytes/100 WBC (Bld) 33.7 % Normal 13.0-44.0 [facility] Comment on above: Performed By: #### 5 7021-8 ####MELISA Galvan ([id number])[facility] ()[address] [place] [address] MCH (RBC) [Entitic mass] 30.5 pg Normal 26.0-34.0 [facility] Comment on above: Performed By: #### 5 7021-8 ####MELISA Galvan (52625)[facility] ()[address] [place] [address] [facility]C (RBC) [Mass/Vol] 32.3 g/dL Normal 32.0-36.0 [facility] Comment on above: Performed By: #### 5 7021-8 ####MELISA Galvan ([id number])[facility] ()[address] [place] [address] MCV (RBC) [Entitic vol] 94 fL Normal 80-100 [facility] Comment on above: Performed By: #### 5 7021-8 ####MELISA Galvan ([id number])[facility] ()[address] [place] [address] Monocytes (Bld) [#/Vol] 0.31 x10*3/uL Normal 0.10-1.00 [facility] Comment on above: Performed By: #### 5 7021-8 ####MELISA Galvan ([id number])[facility] ()[address] [place] [address] Monocytes/100 WBC (Bld) 6.2 % Normal 2.0-10.0 [facility] Comment on above: Performed By: #### 5 7021-8 ####MELISA Galvan ([id number])[facility] ()[address] [place] [address] Neutrophils (Bld) [#/Vol] 2.45 x10*3/uL Normal 1.20-7.70 [facility] Comment on above: Result Comment: Perc ent differential counts (%) should be interpreted in the context of the absolute cell counts (cells/uL). Performed By: #### 5 7021-8 ####MELISA Galvan ([id number])[facility] ()[address] [place] [address] Neutrophils/100 WBC (Bld) 48.6 % Normal 40.0-80.0 [facility] Comment on above: Performed By: #### 5 7021-8 ####MELISA Galvan (48305)[facility] ()[address] [place] [address] Nucleated RBC/100 WBC (Bld) [Ratio] 0.0 /100 WBCs Normal 0.0-0.0 [facility] Comment on above: Performed By: #### 5 7021-8 ####MELISA Galvan ([id number])[facility] ()[address] [place] [address] Platelets (Bld) [#/Vol] 273 x10*3/uL Normal 150-450 [facility] Comment on above: Performed By: #### 5 7021-8 ####MELISA Galvan ([id number])[facility] ()[address] [place] [address] RBC (Bld) [#/Vol] 3.54 x10*6/uL Low 4.00-5.20 [facility] Comment on above: Performed By: #### 5 7021-8 ####MELISA Galvan (07051)[facility] ()[address] [place] [address] WBC (Bld) [#/Vol] 5.0 x10*3/uL Normal 4.4-11.3 [facility] Comment on above: Performed By: #### 5 7021-8 ####MELISA Galvan ([id number])[facility] ()[address] [place] [address] CBC w/ Auto Diffon 4 Basophil Absolute 0.1 E9/L Normal 0.0-0.2 [facility] Comment on above: Performed By: #### 2 700103, 64025340, 5572797, 0075666, 5272789, 8327698 ####[facility] [address] [place] [address] Basophils/100 WBC (Bld) 2.3 % High 0.0-2.0 [facility] Comment on above: Performed By: #### 2 753147, 17495236, 3637768, 4408256, 9170285, 7853793 ####[address] [place] [address] Eos Absolute 0.5 E9/L Normal 0.0-0.5 [facility] Comment on above: Performed By: #### 2 010597, 62343777, 3182746, 3675105, 7494008, 7259173 ####[address] [address] Eosinophils/100 WBC (Bld) 10.3 % High 0.0-8.0 [facility] Comment on above: Performed By: #### 2 201869, 67828936, 2408980, 1144315, 8232991, 1536677 ####[facility] [address] [place] [address] Erythrocyte distribution width (RBC) [Ratio] 13.2 % Normal 10.9-14.2 [facility] Comment on above: Performed By: #### 2 515844, 24335145, 3201593, 6528111, 5667115, 2605532 ####[address] [place] [address] Hematocrit (Bld) [Volume fraction] 38.0 % Normal 34.0-46.0 [facility] Comment on above: Performed By: #### 2 461344, 34205139, 3859770, 3403897, 1375148, 8992406 ####[address] [place] [address] Hemoglobin (Bld) [Mass/Vol] 12.5 g/dL Normal 12.0-16.0 [facility] Comment on above: Performed By: #### 2 174385, 91186844, 1413609, 9260971, 8082484, 3495564 ####[address] [address] Lymph Absolute 1.5 E9/L Normal 1.0-4.0 [facility] Comment on above: Performed By: #### 2 042884, 38475300, 7617820, 1591759, 3793372, 7663002 ####[address] [address] Lymphocytes/100 WBC (Bld) 32.0 % Normal 14.0-50.0 [facility] Comment on above: Performed By: #### 2 592380, 75099388, 2904131, 1138738, 5203589, 1498217 ####[facility] [address] [place] [address] MCH (RBC) [Entitic mass] 29.7 pg Normal 27.0-34.0 [facility] Comment on above: Performed By: #### 2 266567, 71237337, 1375618, 9561691, 7283971, 3503542 ####[address] [address] MCHC (RBC) [Mass/Vol] 33.0 g/dL Normal 31.4-36.0 [facility] Comment on above: Performed By: #### 2 155407, 39370192, 2420919, 4747166, 8060002, 8676269 ####[facility] [address] [place] [address] MCV (RBC) [Entitic vol] 89.8 fL Normal 80.0-100.0 [facility] Comment on above: Performed By: #### 2 353352, 39829182, 6576493, 5530781, 1320764, 3912866 ####[address] [address] Sunflower Absolute 0.3 E9/L Normal 0.2-1.0 [facility] Comment on above: Performed By: #### 2 946324, 25986661, 5173499, 8832364, 9735009, 2971562 ####[address] [address] Monocytes/100 WBC (Bld) 6.4 % Normal 4.0-14.0 [facility] Comment on above: Performed By: #### 2 880899, 27638907, 8800187, 7740343, 6923419, 3808845 ####[address] [address] Neutro Absolute 2.3 E9/L Normal 2.0-7.5 [facility] Comment on above: Performed By: #### 2 354575, 99428178, 8352457, 8220291, 9993579, 5795854 ####[address] [address] Neutro Auto 49.0 % Normal 36.0-75.0 [facility] Comment on above: Performed By: #### 2 661071, 47870330, 9201376, 0870595, 4593804, 7487148 ####[address] [address] Platelet 313.0 E9/L Normal 150.0-500.0 [facility] Comment on above: Performed By: #### 2 869943, 92079107, 4647216, 5478348, 0606905, 5679493 ####[facility] [address] [place] [address] Platelet mean volume (Bld) [Entitic vol] 8.7 fL Normal 6.4-10.8 [facility] Comment on above: Performed By: #### 2 416817, 22839297, 8250737, 5921069, 8694723, 9921189 ####[facility] [address] [place] [address] RBC 4.2 E12/L Low 4.3-5.9 [facility] Comment on above: Performed By: #### 2 453605, 10036019, 3698660, 4427324, 0054007, 5093862 ####[facility] [address] [place] [address] WBC 4.8 E9/L Normal 4.0-11.0 [facility] Comment on above: Performed By: #### 2 072117, 60086087, 4496062, 8081738, 0875306, 0893570 ####[facility] [address] [place] [address] CHEMISTRYOrdered By: SYSTEM SYSTEM on 03-16-2023 Albumin [...] and IV contrast. COMPARISON: None.. ACCESSION NUMBER(S): [id number] ORDERING CLINICIAN: TIFFANIE MENDEZ TECHNIQUE: Oral contrast [...] Corie Garza 03/16/2023 5:46 PM Dictation workstation: [id number] [facility] CT Abdomen and Pelvis W cont rast Brenden 03-16-2023 Patchy ground-glass densities in the bilateral lung bases may represent atelectasis. Multiple cystic lesions scattered throughout both lobes of the liver. Postsurgical changes of Tan-en-Y gastric bypass. MACRO: none Signed by: Corie Garza 03/16/2023 5:46 PM Dictation workstation: [id number] [facility] Interpreted By: Corie Garza, STUDY: CT ABDOMEN PELVIS W IV CONTRAST; 03/16/2023 5:27 pm INDICATION: Signs/Symptoms:abdo kerry pain - with oral and IV contrast. COMPARISON: None.. ACCESSION NUMBER(S): [id number] ORDERING CLINICIAN: TIFFANIE MENDEZ TECHNIQUE: Oral contrast [...] and IV contrast. COMPARISON: None.. ACCESSION NUMBER(S): [id number] ORDERING CLINICIAN: TIFFANIE MENDEZ TECHNIQUE: Oral contrast [...] Corie Garza 03/16/2023 5:46 PM Dictation workstation: [id number] [facility] Work Phone: Radiology Study observation (narrative) [facility] Work Phone: CT Abdomen and Pelvis W cont rast IVOrdered By: Corie Garza on 03-16-2023 [facility] Work Phone: Comprehensive metabolic 2000 panelon 03-16-2023 Albumin [Mass/Vol] 3.0 g/dL Low 3.5 - 5.0 g/dL [facility] ALP (Bld) [Catalytic activity/Vol] 58 U/L 35 - 125 U/L [facility] ALT [Catalytic activity/Vol] 13 U/L 5 - 40 U/L [facility] Anion gap [Moles/Vol] 10 mmol/L NINF - 19 mmol/L [facility] AST [Catalytic activity/Vol] 32 U/L 5 - 40 U/L [facility] Bilirubin [Mass/Vol] mg/dL 0.1 - 1.2 mg/dL [facility] Calcium [Mass/Vol] 7.9 mg/dL Low 8.5 - 10.4 mg/dL [facility] Chloride [Moles/Vol] 110 mmol/L High 97 - 107 mmol/L [facility] CO2 [Moles/Vol] 21 mmol/L Low 24 - 31 mmol/L Unive [facility] Creatinine [Mass/Vol] 0.80 mg/dL 0.40 - 1.60 mg/dL [facility] eGFR - PINF [facility] Comment on above: Calculations of jessica mated GFR are performed using the 2020 CKD-EPI Study Refit equation without the race variable for the IDMS-Traceable creatinine methods. https://jasn.asnjournals.org/content//ASN.92074960 88 Glucose [Mass/Vol] 82 mg/dL 65 - 99 mg/dL [facility] Interpretation and review of laboratory results Abnormal [facility] Potassium [Moles/Vol] 3.7 mmol/L 3.4 - 5.1 mmol/L [facility] Protein [Mass/Vol] 5.5 g/dL Low 5.9 - 7.9 g/dL Un [facility] Sodium [Moles/Vol] 141 mmol/L 133 - 145 mmol/L [facility] Urea nitrogen [Mass/Vol] 8 mg/dL 8 - 25 mg/dL [facility] Albumin [Mass/Vol] 3.0 g/dL Low 3.5-5.0 [facility] Comment on above: Performed By: #### 2 4323-8 ####MELISA Galvan ([id number])[facility] ()[address] [place] [address] ALP (Bld) [Catalytic activity/Vol] 58 U/L Normal 35-125 [facility] Comment on above: Performed By: #### 2 4323-8 ####MELISA Galvan ([id number])[facility] ()[address] [place] [address] ALT [Catalytic activity/Vol] 13 U/L Normal 5-40 [facility] Comment on above: Performed By: #### 2 4323-8 ####MELISA Galvan (09605)[facility] ()[address] [place] [address] Anion gap [Moles/Vol] 10 mmol/L Normal <=19 [facility] Comment on above: Performed By: #### 2 4323-8 ####MELISA Galvan (59461)[facility] ()[address] [place] [address] AST [Catalytic activity/Vol] 32 U/L Normal 5-40 [facility] Comment on above: Performed By: #### 2 4323-8 ####MELISA Galvan (72086)[facility] ()[address] [place] [address] Bilirubin [Mass/Vol] mg/dL Normal 0.1-1.2 [facility] Comment on above: Performed By: #### 2 4323-8 ####MELISA Galvan (90443)[facility] ()[address] [place] [address] Calcium [Mass/Vol] 7.9 mg/dL Low 8.5-10.4 [facility] Comment on above: Performed By: #### 2 4323-8 ####MLEISA Galvan (97527)[facility] ()[address] [place] [address] Chloride [Moles/Vol] 110 mmol/L High 97-107 [facility] Comment on above: Performed By: #### 2 4323-8 ####MELISA Galvan (45016)[facility] ()[address] [place] [address] CO2 [Moles/Vol] 21 mmol/L Low 24-31 [facility] Comment on above: Performed By: #### 2 4323-8 ####MELISA Galvan (95881)[facility] ()[address] [place] [address] Creatinine [Mass/Vol] 0.80 mg/dL Normal 0.40-1.60 [facility] Comment on above: Performed By: #### 2 4323-8 ####MELISA Galvan (96028)[facility] ()[address] [place] [address] GFR/1.73 sq M.predicted MDRD (S/P/Bld) [Vol rate/Area] mL/min/{1.73_m2} Normal >60 [facility] Comment on above: Result Comment: Calc ulations of estimated GFR are performed using the 2020 CKD-EPI Study Refit equation without the race variable for the IDMS-Traceable creatinine methods. https://jasn.asnjournals.org/content//ASN.53724087 88 Performed By: #### 2 4323-8 ####MELISA Galvan (79250)[facility] ()[address] [place] [address] Glucose [Mass/Vol] 82 mg/dL Normal 65-99 [facility] Comment on above: Performed By: #### 2 4323-8 ####MELISA Galvan (39856)[facility] ()[address] [place] [address] Potassium [Moles/Vol] 3.7 mmol/L Normal 3.4-5.1 [facility] Comment on above: Performed By: #### 2 4323-8 ####MELISA Galvan (93498)[facility] ()[address] [place] [address] Protein [Mass/Vol] 5.5 g/dL Low 5.9-7.9 [facility] Comment on above: Performed By: #### 2 4323-8 ####MELISA Galvan (89587)[facility] ()[address] [place] [address] Sodium [Moles/Vol] 141 mmol/L Normal 133-145 [facility] Comment on above: Performed By: #### 2 4323-8 ####MELISA Galvan ([id number])[facility] ()[address] [place] [address] Urea nitrogen [Mass/Vol] 8 mg/dL Normal 8-25 [facility] Comment on above: Performed By: #### 2 4323-8 ####MELISA Galvan (55772)[facility] ()[address] [place] [address] Consent for Treatmenton 02-17 Consent for Treatment [id number] 972#1.00TIFF [facility] Discharge Instructionson Discharge Instructions [id number] 21#1.00TIFF Normal [facility] Comment on above: Other Comment: wrong folder ED Clinical Summaryon 2023 ED [facility]-16-2023 ED Note-Nursing called report to Thu PRICE, . Normal [facility] ED Note-Physicianon 03-16-19 ED Note-Physician Normal [facility] Comment on above: Result Comment: Elec tronically Signed By: Earnest Jett DO\.br\Date and Time Signed: 03/16/23 11:17 EST ED Patient Education Noteon 03-16-2023 ED Patient Education Note Normal [facility] ED Patient Summaryon 024 ED Patient Summary Normal [facility] HEMATOLOGYOrdered By: SYSTEM SYSTEM on 03-16-2023 Basophil [...] Normal 80.0 - 100.0 fL Remisol Heme Sunflower Absolute 0.3 E9/L Normal 0.2 - 1.0 [...] 03-16-2023 Albumin [Mass/Vol] 3.8 g/dL Normal 3.3-5.0 [facility] Comment on above: Performed By: #### 2 371185, 28021418, 2163709, 2341494, 6996174, 3173184 ####[facility] [address] [place] [address] Albumin/Globulin [Mass ratio] 1.5 {ratio} Normal 1.1-2.2 [facility] Comment on above: Performed By: #### 2 113688, 80891878, 5116022, 7157255, 8841003, 5435222 ####[facility] [address] [place] [address] Alk Phos 62 Int._Unit/L Normal 21-98 [facility] Comment on above: Performed By: #### 2 834204, 86877070, 5545392, 7171174, 5556116, 4981251 ####[facility] [address] [place] [address] ALT 21 Int._Unit/L Normal 6-46 [facility] Comment on above: Performed By: #### 2 324218, 57026139, 2876951, 7223952, 8284501, 4117393 ####[facility] [address] [place] [address] AST 37 Int._Unit/L Normal 5-43 [facility] Comment on above: Performed By: #### 2 899689, 91618998, 4770799, 3734951, 5644481, 5246728 ####[facility] [address] [place] [address] Bili Direct 0.1 mg/dL Normal 0.0-0.4 [facility] Comment on above: Performed By: #### 2 173125, 84244559, 6386190, 3200315, 1040065, 3741255 ####[facility] [address] [place] [address] Bili Indirect 0.2 mg/dL Normal 0.1-0.9 [facility] Comment on above: Performed By: #### 2 914423, 10107178, 8230503, 4470226, 4182602, 3898870 ####[facility] [address] [place] [address] Bili Total 0.3 mg/dL Normal 0.0-1.1 [facility] Comment on above: Performed By: #### 2 246657, 06517020, 1503033, 8054608, 8955396, 9661430 ####[facility] [address] [place] [address] Globulin (S) [Mass/Vol] 2.6 g/dL Normal 1.4-4.0 [facility] Comment on above: Performed By: #### 2 044719, 11973306, 2881091, 6084931, 6303361, 8856150 ####[facility] [address] [place] [address] Protein [Mass/Vol] 6.4 g/dL Normal 6.0-7.8 [facility] Comment on above: Performed By: #### 2 280051, 92529822, 7036981, 7097986, 4489025, 6507397 ####[facility] [address] Influenza virus A and B and SARS-CoV-2 (COVID-19) identified HANK+probe Nom (Resp)on 03-16-2023 FLUAV RNA HANK+probe Ql (Resp) Not detected Not Detected [facility] FLUBV RNA HANK+probe Ql (Resp) Not detected Not Detected [facility] Interpretation and review of laboratory results Normal [facility] SARS-CoV-2 (COVID-19) RNA HANK+probe Ql (Resp) Not detected Not Detected [facility] This assay has received FDA [...] and has been validated for use at [facility]. Negative results do not preclude COVID-19 infections or Influenza A/B infections, and should not be used as the sole basis for diagnosis, treatment, or other management decisions. If Influenza A/B and RSV PCR results are negative, testing for Parainfluenza virus, Adenovirus and Metapneumovirus is routinely performed for [facility] pediatric oncology and intensive care inpatients, and is available on other patients by placing an add-on request. [facility] FLUAV RNA HANK+probe Ql (Resp) Not detected Normal Not Detected [facility] Comment on above: Order Comment: This [...] and has been validated for use at [facility]. Negative results do not preclude COVID-19 infections or Influenza A/B infections, and should not be used as the sole basis for diagnosis, treatment, or other management decisions. If Influenza A/B and RSV PCR results are negative, testing for Parainfluenza virus, Adenovirus and Metapneumovirus is routinely performed for [facility] pediatric oncology and intensive care inpatients, and is available on other patients by placing an add-on request. Performed By: #### 5 2969-3 #### ALON Johnson ([id number]) [facility] ([facility]) [address] [place] [address] FLUBV RNA HANK+probe Ql (Resp) Not detected Normal Not Detected [facility] Comment on above: Order Comment: This [...] and has been validated for use at [facility]. Negative results do not preclude COVID-19 infections or Influenza A/B infections, and should not be used as the sole basis for diagnosis, treatment, or other management decisions. If Influenza A/B and RSV PCR results are negative, testing for Parainfluenza virus, Adenovirus and Metapneumovirus is routinely performed for [facility] pediatric oncology and intensive care inpatients, and is available on other patients by placing an add-on request. Performed By: #### 5 2969-3 #### ALON Johnson ([id number]) [facility] ([facility]) [address] [place] [address] SARS-CoV-2 (COVID-19) RNA HANK+probe Ql (Resp) Not detected Normal Not Detected [facility] Comment on above: Order Comment: This [...] and has been validated for use at [facility]. Negative results do not preclude COVID-19 infections or Influenza A/B infections, and should not be used as the sole basis for diagnosis, treatment, or other management decisions. If Influenza A/B and RSV PCR results are negative, testing for Parainfluenza virus, Adenovirus and Metapneumovirus is routinely performed for [facility] pediatric oncology and intensive care inpatients, and is available on other patients by placing an add-on request. Performed By: #### 5 2969-3 #### ALON Johnson ([id number]) [facility] ([facility]) [address] [place] [address] Lactic Acidon 03-16-2023 Lactic Acid Lvl 0.6 mmol/L Normal 0.5-2.2 [facility] Comment on above: Performed By: #### 2 364969, 89378885, 5900961, 7367931, 7956705, 0475903 ####[facility] [address] [place] [address] Lipase Levelon 03-16-2023 Lipase Lvl 95 unit/L High 13-58 [facility] Comment on above: Performed By: #### 2 069878, 86743258, 4570119, 7813996, 4618123, 1738593 ####[facility] [address] [place] [address] Pre-Arrival Noteon 4 Pre-Arrival Note Normal [facility] Transfer Documentson 024 Transfer Documents [id number] 04#1.00TIFF Normal [facility] eGFRon 03-16-2023 eGFR 99 mL/min/1.73 m2 Normal >=59 [facility] Comment on above: Order Comment: Order added by Discern Expert. Performed By: #### 2 343325, 90125963, 9358805, 0671355, 3693207, 6853547 ####[facility] [address] [place] [address] BB Draw & Holdon 03-15-2023 BB D&H Sample drawn for Blood Ba Normal [facility] Comment on above: Performed By: #### 2 048435, 74810270, 55746915, 1767490, 4455120, 1061964, 12606664, 7606826, 02038471 ####[facility] [address] [place] [address] BMPon 03-15-2023 Anion gap [Moles/Vol] 12 mmol/L Normal 6-16 [facility] Comment on above: Performed By: #### 2 566859, 42398167, 32099002, 7355106, 3020552, 2284983, 58145350, 1077073, 15887660 ####[facility] [address] [place] [address] BUN/Creat Ratio 10 No Units Normal 10-20 [facility] Comment on above: Performed By: #### 2 074327, 89648520, 33884215, 2996553, 0423482, 4283822, 66242054, 5645413, 24998506 ####[facility] [address] [place] [address] Calcium [Mass/Vol] 8.5 mg/dL Low 8.9-11.1 [facility] Comment on above: Performed By: #### 2 999932, 31043900, 26022145, 4204053, 8518839, 5266312, 21443457, 7993947, 81727908 ####[facility] [address] [place] [address] Chloride [Moles/Vol] 110 mmol/L Normal 101-111 [facility] Comment on above: Performed By: #### 2 931246, 27254939, 71491161, 5104191, 0013645, 1807670, 73653204, 1268403, 05757395 ####[facility] [address] [place] [address] CO2 [Moles/Vol] 22 mmol/L Normal 21-31 [facility] Comment on above: Performed By: #### 2 948498, 42637643, 48440276, 3230414, 4760544, 7338784, 53169964, 1514896, 11731274 ####[facility] [address] [place] [address] Creatinine [Mass/Vol] 0.8 mg/dL Normal 0.5-1.3 [facility] Comment on above: Performed By: #### 2 239709, 61447616, 27029055, 8026641, 0608521, 1663055, 77322698, 5028223, 61765280 ####[facility] [address] [place] [address] Glucose [Mass/Vol] 79 mg/dL Normal 55-199 [facility] Comment on above: Performed By: #### 2 877876, 63146132, 01448666, 9911212, 6729871, 1600091, 01334338, 8276288, 68474042 ####[facility] [address] [place] [address] Potassium [Moles/Vol] 3.6 mmol/L Normal 3.5-5.3 [facility] [facility] Comment on above: Performed By: #### 2 961163, 77796069, 20509595, 5465171, 2242240, 4766207, 96516207, 9239151, 75321447 ####[facility] [address] [place] [address] Sodium [Moles/Vol] 140 mmol/L Normal 135-145 [facility] Comment on above: Performed By: #### 2 891193, 46540961, 93490838, 3342790, 6391966, 4433441, 74521241, 4875581, 75978236 ####[address] [address] Urea nitrogen [Mass/Vol] 8 mg/dL Normal 5-21 [facility] Comment on above: Performed By: #### 2 430803, 09075313, 61896283, 3952163, 7020785, 6808729, 17975901, 2749035, 34592730 ####[address] [place] [address] CBC w/ Auto Diffon 4 Basophil Absolute 0.1 E9/L Normal 0.0-0.2 [facility] Comment on above: Performed By: #### 2 245789, 99918579, 46512329, 3668567, 7447818, 4811562, 98863227, 4485694, 52015106 ####[address] [place] [address] Basophils/100 WBC (Bld) 0.9 % Normal 0.0-2.0 [facility] Comment on above: Performed By: #### 2 247214, 37006395, 81834227, 2201853, 9189791, 8181444, 73971935, 4989650, 96945668 ####[facility] [address] [place] [address] Eos Absolute 0.6 E9/L High 0.0-0.5 [facility] Comment on above: Performed By: #### 2 789164, 59636534, 71898865, 8231134, 7800772, 7696323, 97495558, 8527801, 62288623 ####[address] [place] [address] Eosinophils/100 WBC (Bld) 9.6 % High 0.0-8.0 [facility] Comment on above: Performed By: #### 2 628129, 64833940, 46163254, 0112362, 5897580, 6703705, 57968946, 7992051, 37829388 ####[address] [address] Erythrocyte distribution width (RBC) [Ratio] 13.2 % Normal 10.9-14.2 [facility] Comment on above: Performed By: #### 2 497133, 49971616, 70806970, 0996565, 0332638, 4159338, 38978276, 3173290, 39423630 ####[address] [place] [address] Hematocrit (Bld) [Volume fraction] 36.0 % Normal 34.0-46.0 [facility] Comment on above: Performed By: #### 2 156947, 45828796, 56821652, 9652589, 8182055, 2513780, 29423902, 1516683, 62676593 ####[address] [address] Hemoglobin (Bld) [Mass/Vol] 12.2 g/dL Normal 12.0-16.0 [facility] Comment on above: Performed By: #### 2 441427, 53017349, 03779243, 7532762, 1484351, 9910743, 74867359, 8030110, 04756044 ####[facility] [address] [place] [address] Lymph Absolute 2.0 E9/L Normal 1.0-4.0 [facility] Comment on above: Performed By: #### 2 207635, 16721993, 18203810, 9618658, 3563824, 2244255, 66187951, 3031863, 89684722 ####[address] [place] [address] Lymphocytes/100 WBC (Bld) 32.4 % Normal 14.0-50.0 [facility] Comment on above: Performed By: #### 2 707340, 28805174, 89726417, 5598660, 4219553, 4117791, 59364571, 3955218, 32208742 ####[address] [address] MCH (RBC) [Entitic mass] 30.6 pg Normal 27.0-34.0 [facility] Comment on above: Performed By: #### 2 248874, 49991623, 49732170, 9014289, 3999826, 3106307, 30620813, 0053303, 68444794 ####[address] [address] MCHC (RBC) [Mass/Vol] 34.3 g/dL Normal 31.4-36.0 [facility] Comment on above: Performed By: #### 2 983775, 68496678, 33660071, 8459171, 7257706, 8173845, 83434620, 4758115, 02521357 ####[address] [address] MCV (RBC) [Entitic vol] 89.0 fL Normal 80.0-100.0 [facility] Comment on above: Performed By: #### 2 331623, 52534978, 51581027, 3737967, 5465313, 0593993, 61350881, 6049592, 81808737 ####[facility] [address] [place] [address] Sunflower Absolute 0.3 E9/L Normal 0.2-1.0 [facility] Comment on above: Performed By: #### 2 908829, 44428764, 01911551, 4234249, 9174729, 7639918, 40020413, 8744808, 43395995 ####[address] [place] [address] Monocytes/100 WBC (Bld) 5.6 % Normal 4.0-14.0 [facility] Comment on above: Performed By: #### 2 945874, 41295823, 34761863, 2404232, 7648078, 7474230, 54488947, 9095464, 83708502 ####[address] [address] Neutro Absolute 3.2 E9/L Normal 2.0-7.5 [facility] Comment on above: Performed By: #### 2 580218, 40241752, 59326295, 7538809, 9656667, 9636940, 71644855, 5931719, 06643414 ####[address] [address] Neutro Auto 51.5 % Normal 36.0-75.0 [facility] Comment on above: Performed By: #### 2 070438, 54567913, 95118956, 0342770, 3788202, 4498569, 19927047, 2687900, 27570947 ####[address] [place] [address] Platelet 309.0 E9/L Normal 150.0-500.0 [facility] Comment on above: Result Comment: Demetra meneses with slide review Performed By: #### 2 373665, 99140298, 44038014, 4361025, 6922377, 2018395, 85220529, 5848308, 16032135 ####[address] [place] [address] Platelet mean volume (Bld) [Entitic vol] 9.1 fL Normal 6.4-10.8 [facility] Comment on above: Performed By: #### 2 424820, 15002855, 32847959, 7895661, 8552138, 3533729, 93204774, 9904306, 08305259 ####[facility] [address] [place] [address] RBC 4.0 E12/L Low 4.3-5.9 [facility] Comment on above: Performed By: #### 2 957615, 11053925, 16109835, 8695711, 9912305, 4720328, 86164851, 3674199, 94815491 ####[facility] [address] [place] [address] WBC 6.1 E9/L Normal 4.0-11.0 [facility] Comment on above: Performed By: #### 2 559963, 84610043, 39756253, 1994607, 8448399, 1065224, 22504598, 7562258, 40072752 ####[facility] [address] [place] [address] CHEMISTRYOrdered By: SYSTEM SYSTEM on 03-15-2023 Lactic [...] Sensitivity Troponin I Instructions For Use, Alan [place], September 2017) Urea nitrogen [Mass/Vol] 8 mg/dL Normal 5 - 21 mg/dL [facility] Urea nitrogen/Creatinine [Mass ratio] 10 mg/mg Normal 10 - 20 [facility] COAGULATIONOrdered By: Storm Baca on 03-15-2023 aPTT Coag (PPP) [Time] 32.3 s Normal 25.1 - 36.5 second(s) [facility] Comment on above: Interpretive Data: [...] the same coagulation reagent and instrumentation as [facility]. Currently there are no coagulation studies available worldwide for children to 14 days, and no normal ranges. Heparin therapeutic range (represented by Anti-Factor Xa activity of 0.2 - 0.4 U/mL) corresponds to PTT of 56.6 - 109.0 sec. INR Coag (PPP) [Relative time] 1.1 {INR} Invalid Interpretation Code [facility] Comment on above: Interpretive Data: I NR results are specifically intended to assess patients stabilized on long-term Anticoagulation therapy suggested INR s Less Intensive Anticoagulation 2.0 3.0 Conventional Range 3.0 4.5 PT Coag (PPP) [Time] 12.6 s High 9.4 - 12.5 second(s) [facility] Comment on above: Interpretive Data: 1 5 days - 4 weeks 1 - 5 months 6 -11 months 1-5 years 6-10 years 11 -17 years Mean: 11.2 (9.5-12.6) Mean: 11.0 (9.7-12.8) Mean: 11.0 (9.8-13.0) Mean: 11.3 (9.9-13.4) Mean: 11.7 (10.0-14.6) Mean: 11.8 (10.0 - 14.1) Pediatric Reference ranges were obtained from a study by Stanton Lott et alRenetta prepared from 1437 samples obtained at 7 different centers using the same coagulation reagent and instrumentation as [facility]. Currently there are no coagulation studies available worldwide for children to 14 days, and no normal ranges. CT Abdomen/Pelvis w/o Contra ston 01-29-2024 CT Abdomen/Pelvis w/o Contrast Normal [facility] Consent for Treatmenton 02-16 Consent for Treatment [id number] 3B#1.00TIFF Normal [facility] Discharge Instructionson Discharge Instructions [id number]#1.00TIFF Normal [facility] ED Clinical Summaryon 2023 [facility]-19 ED Note-Physician Normal [facility] Comment on above: Result Comment: Elec tronically Signed By: Earnest Jett DO\.br\Date and Time Signed: 03/15/23 17:31 EST ED Patient Education Noteon 03-15-2023 ED Patient Education Note Normal [facility] ED Patient Summaryon 024 ED Patient Summary Normal [facility] EMS Documentationon 03-15-19 EMS Documentation Please click on link to see report Normal [facility] Comment on above: Result Comment: Miss ing [...] Normal 80.0 - 100.0 fL Remisol Heme Sunflower Absolute 0.3 E9/L Normal 0.2 - 1.0 [...] 03-15-2023 Albumin [Mass/Vol] 3.6 g/dL Normal 3.3-5.0 [facility] Comment on above: Performed By: #### 2 670782, 05586976, 16322736, 3290549, 1032091, 1815578, 31076100, 2089068, 63421189 ####[address] [place] [address] Albumin/Globulin [Mass ratio] 1.4 {ratio} Normal 1.1-2.2 [facility] Comment on above: Performed By: #### 2 579474, 87376260, 10411017, 9416598, 9554737, 4284832, 75312035, 6338612, 98406256 ####[facility] [address] [place] [address] Alk Phos 64 Int._Unit/L Normal 21-98 [facility] Comment on above: Performed By: #### 2 504297, 21308563, 22297652, 0975820, 5210411, 3082232, 09588895, 8744710, 82764257 ####[facility] [address] [place] [address] ALT 20 Int._Unit/L Normal 6-46 [facility] Comment on above: Performed By: #### 2 751672, 57255585, 29587818, 9734568, 6956889, 3800018, 14723322, 0892251, 80355605 ####[address] [place] [address] AST 35 Int._Unit/L Normal 5-43 [facility] Comment on above: Performed By: #### 2 203189, 76121625, 37913937, 6443717, 1330924, 6714995, 16281019, 3106456, 09478556 ####[address] [place] [address] Bili Direct 0.0 mg/dL Normal 0.0-0.4 [facility] Comment on above: Performed By: #### 2 337902, 60034778, 16227481, 5526944, 4042458, 8786006, 92335932, 6786131, 64743576 ####[facility] [address] [place] [address] Bili Indirect 0.2 mg/dL Normal 0.1-0.9 [facility] Comment on above: Performed By: #### 2 398638, 03834056, 58487243, 8062905, 2762910, 3328424, 68725858, 6705365, 59858299 ####[facility] [address] [place] [address] Bili Total 0.2 mg/dL Normal 0.0-1.1 [facility] Comment on above: Performed By: #### 2 938811, 09621236, 68938016, 3245352, 1644536, 5711353, 13649238, 0733302, 51668271 ####[facility] [address] [place] [address] Globulin (S) [Mass/Vol] 2.6 g/dL Normal 1.4-4.0 [facility] Comment on above: Performed By: #### 2 765136, 09947741, 13251029, 7578389, 4046681, 3909744, 52248931, 4469908, 47186855 ####[facility] [address] [place] [address] Protein [Mass/Vol] 6.2 g/dL Normal 6.0-7.8 [facility] Comment on above: Performed By: #### 2 742215, 60136621, 18749228, 6286515, 1822011, 9089610, 28168035, 0268386, 11598874 ####[facility] [address] [place] [address] Home Health Recordson 2023 Home Health Records [id number] 1#1.00TIFF Normal [facility] Lactic Acidon 03-15-2023 Lactic Acid Lvl 0.7 mmol/L Normal 0.5-2.2 [facility] Comment on above: Performed By: #### 2 283598, 08263862, 60261067, 8220589, 4847106, 5473392, 78804838, 0437063, 61529507 ####[facility] [address] [place] [address] Lipase Levelon 03-15-2023 Lipase Lvl 115 unit/L High 13-58 [facility] Comment on above: Performed By: #### 2 774813, 31869485, 13085372, 4374921, 6428857, 4980503, 12606698, 2954845, 60215428 ####[facility] [address] [place] [address] PT & PTTon 03-15-2023 aPTT Coag (PPP) [Time] 32.3 second(s) Normal 25.1-36.5 [facility] Comment on above: Result Comment: Para meter [...] the same coagulation reagent and instrumentation as [facility]. Currently there are no coagulation studies available worldwide for children to 14 days, and no normal ranges. Heparin therapeutic range (represented by Anti-Factor Xa activity of 0.2 - 0.4 U/mL) corresponds to PTT of 56.6 - 109.0 sec. Performed By: #### 2 918649, 57508068, 90807926, 7582039, 4789013, 2487285, 56703815, 6276157, 12548816 ####[facility] [address] [place] [address] INR Coag (PPP) [Relative time] 1.1 {INR} Invalid Interpretation Code [facility] Comment on above: Result Comment: INR results are specifically intended to assess patients stabilized on long-term Anticoagulation therapy suggested INR?s ?Less Intensive Anticoagulation? 2.0 ? 3.0Conventional Range 3.0 ? 4.5 Performed By: #### 2 027346, 94214761, 80110369, 2315689, 2857691, 7341626, 90569013, 5249236, 30262193 ####[facility] [address] [place] [address] PT Coag (PPP) [Time] 12.6 second(s) High 9.4-12.5 [facility] Comment on above: Result Comment: 15 d [...] the same coagulation reagent and instrumentation as [facility]. Currently there are no coagulation studies available worldwide for children to 14 days, and no normal ranges. Performed By: #### 2 738409, 77370554, 61272829, 1984035, 5901412, 9175817, 59322636, 2785824, 62911931 ####[facility] [address] [place] [address] Pre-Arrival Noteon Pre-Arrival Note Normal [facility] Troponin 0 Hr.on 03-15-2023 Troponin I.cardiac [Mass/Vol] ng/mL Low 10.10-27.10 [facility] Comment on above: Result Comment: The 95% CI (Confidence Interval) PPV (Positive Predictive Value) for myocardial infarction in females is 38 pg/mL, in males 51 pg/mL. The results should be used in conjunction with clinical conditions of myocardial infarction.(Access High Sensitivity Troponin I Instructions For Use, Alan [place], September 2017) Performed By: #### 2 367032, 14481939, 78092475, 9327608, 1169021, 2728736, 30527880, 5429328, 76520221 ####[facility] [address] [place] [address] UA With Cult Reflexon 2023 Bilirubin Ql (U) Negative Normal Negative [facility] Comment on above: Performed By: #### 1 8479174 ####[facility] [address] [place] [address] Clarity (U) CLEAR Normal Clear [facility] Comment on above: Performed By: #### 1 5479662 ####[facility] [address] [place] [address] Color (U) ORANGE Abnormal Yellow [facility] Comment on above: Performed By: #### 1 1571291 ####[facility] [address] [place] [address], [place] [address] Crystals LM Ql (Urine sed) Present Normal [facility] Comment on above: Performed By: #### 1 5455921 ####[address] [address] Epithelial cells.squamous LM.HPF (Urine sed) [#/Area] 0-2 Normal 0-2 [facility] Comment on above: Performed By: #### 1 7721855 ####[facility] [address] [place] [address] Glucose Test strip (U) [Mass/Vol] TRACE Abnormal Negative [facility] Comment on above: Performed By: #### 1 1853619 ####[facility] [address] [place] [address], [place] [address] Hemoglobin Ql (U) Negative Normal Negative [facility] Comment on above: Performed By: #### 1 1106276 ####[facility] [address] [place] [address] Ketones (U) [Mass/Vol] Negative Normal Negative [facility] Comment on above: Performed By: #### 1 8106526 ####[facility] [address] [place] [address] Pettibone.plasma/Lith ium.RBC (Bld) [Mass ratio] 0-3 Normal 0-3 [facility] Comment on above: Performed By: #### 1 0703681 ####[facility] [address] [place] [address] Nitrite Ql (U) See Comment Normal Negative [facility] Comment on above: Result Comment: Test Not Performed Due To Interfering Substance Performed By: #### 1 2473310 ####[facility] [address] [place] [address] pH (U) 7.0 [pH] Invalid Interpretation Code 5.0-9.0 [facility] Comment on above: Performed By: #### 1 2298602 ####[address] [address] Protein (U) [Mass/Vol] 1+ Abnormal Negative [facility] Comment on above: Performed By: #### 1 7169666 ####[address] [address] Specific gravity (U) [Rel density] 1.010 Invalid Interpretation Code 1.005-1.030 [facility] Comment on above: Performed By: #### 1 8655217 ####[address] [address] Type of Urine collection method Clean Catch Normal [facility] Comment on above: Performed By: #### 1 7152544 ####[facility] [address] [place] [address] Urobilinogen Qn (U) See Comment Normal 0.0-1.0 [facility] Comment on above: Result Comment: Test Not Performed Due To Interfering Substance Performed By: #### 1 8799795 ####[facility] [address] [place] [address] WBC Auto Ql (U) Negative Normal Negative [facility] Comment on above: Performed By: #### 1 0900530 ####[facility] [address] [place] [address] WBC LM.HPF (Urine sed) [#/Area] 0-5 Normal 0-5 [facility] Comment on above: Performed By: #### 1 0434567 ####[address] [address] URINALYSISOrdered By: Alcira Lee on 03-15-2023 Bilirubin Ql (U) Negative (03/15/23 2:43 PM) Normal Negative [facility] UA Auto SS Clarity (U) Clear (03/15/23 2:43 PM) Normal Clear [facility] UA Auto SS Color (U) [place] *ABN* (03/15/23 2:43 PM) Invalid Interpretation Code [...] PM) Normal Negative [facility] UA Auto SS Pettibone.plasma/Lith ium.RBC (Bld) [Mass ratio] 0-3 /HPF Normal [...] (03/15/23 2:43 PM) Normal 0.0 - 1.0 [facility] UA Auto SS Comment on above: Result Comment: Test Not Performed Due To Interfering Substance WBC Auto Ql (U) Negative (03/15/23 2:43 PM) Normal Negative [facility] UA Auto SS WBC LM.HPF (Urine sed) [#/Area] 0-5 /HPF Normal 0-5/HPF [facility] UA Auto SS XR Chest Single Viewon 03-15 XR Chest Single View Normal [facility] eGFRon 03-15-2023 eGFR 99 mL/min/1.73 m2 Normal >=59 [facility] Comment on above: Order Comment: Order added by Discern Expert. Performed By: #### 2 312663, 80752772, 27875043, 0240552, 1143803, 2454611, 77863192, 0901093, 98584846 ####[facility] [address] [place] [address] Basic metabolic 2000 panelon 03-10-2023 Anion gap [Moles/Vol] 11 mmol/L NINF - 19 mmol/L [facility] Calcium [Mass/Vol] 8.0 mg/dL Low 8.5 - 10.4 mg/dL [facility] Chloride [Moles/Vol] 108 mmol/L High 97 - 107 mmol/L [facility] CO2 [Moles/Vol] 22 mmol/L Low 24 - 31 mmol/L [facility] Creatinine [Mass/Vol] 0.60 mg/dL 0.40 - 1.60 mg/dL [facility] eGFR - PINF [facility] Comment on above: Calculations of jessica mated GFR are performed using the 2020 CKD-EPI Study Refit equation without the race variable for the IDMS-Traceable creatinine methods. https://jasn.asnjournals.org/content//ASN.90347245 88 Glucose [Mass/Vol] 89 mg/dL 65 - 99 mg/dL [facility] Interpretation and review of laboratory results Abnormal [facility] Potassium [Moles/Vol] 3.7 mmol/L 3.4 - 5.1 mmol/L [facility] Sodium [Moles/Vol] 141 mmol/L 133 - 145 mmol/L [facility] Urea nitrogen [Mass/Vol] 4 mg/dL Low 8 - 25 mg/dL [facility] Anion gap [Moles/Vol] 11 mmol/L Normal <=19 [facility] Comment on above: Performed By: #### 5 2969-3 #### ALON AMBROSIO L ([id number]) [facility] ([facility]) [address] [place] [address] Calcium [Mass/Vol] 8.0 mg/dL Low 8.5-10.4 [facility] Comment on above: Performed By: #### 5 2969-3 #### ALON AMBROSIO L ([id number]) [facility] ([facility]) [address] [place] [address] Chloride [Moles/Vol] 108 mmol/L High 97-107 [facility] Comment on above: Performed By: #### 5 2969-3 #### ALON AMBROSIO L ([id number]) [facility] ([facility]) [address] [place] [address] CO2 [Moles/Vol] 22 mmol/L Low 24-31 [facility] Comment on above: Performed By: #### 5 2969-3 #### ALON AMBROSIO L ([id number]) [facility] ([facility]) [address] [place] [address] Creatinine [Mass/Vol] 0.60 mg/dL Normal 0.40-1.60 [facility] Comment on above: Performed By: #### 5 2969-3 #### ALON AMBROSIO L ([id number]) [facility] ([facility]) [address] [place] [address] GFR/1.73 sq M.predicted MDRD (S/P/Bld) [Vol rate/Area] mL/min/{1.73_m2} Normal >60 [facility] Comment on above: Result Comment: Calc ulations of estimated GFR are performed using the 2020 CKD-EPI Study Refit equation without the race variable for the IDMS-Traceable creatinine methods. https://jasn.asnjournals.org/content//ASN.45855795 88 Performed By: #### 5 2969-3 #### ALON AMBROSIO L ([id number]) [facility] ([facility]) [address] [place] [address] Glucose [Mass/Vol] 89 mg/dL Normal 65-99 [facility] Comment on above: Performed By: #### 5 2969-3 #### ALON Johnson ([id number]) [facility] ([facility]) [address] [place] [address] Potassium [Moles/Vol] 3.7 mmol/L Normal 3.4-5.1 [facility] Comment on above: Performed By: #### 5 2969-3 #### ALON AMBROSIO L ([id number]) [facility] ([facility]) [address] [place] [address] Sodium [Moles/Vol] 141 mmol/L Normal 133-145 [facility] Comment on above: Performed By: #### 5 2969-3 #### ALON AMBROSIO L ([id number]) [facility] ([facility]) [address] [place] [address] Urea nitrogen [Mass/Vol] 4 mg/dL Low 8-25 [facility] Comment on above: Performed By: #### 5 2969-3 #### ALON AMBROSIO L ([id number]) [facility] ([facility]) [address] [place] [address] CBC panel Auto (Bld)on 03-10 Erythrocyte distribution width (RBC) [Ratio] 12.9 % 11.5 - 14.5 % [facility] Hematocrit (Bld) [Volume fraction] 31.3 % Low 36.0 - 46.0 % [facility] Hemoglobin (Bld) [Mass/Vol] 10.6 g/dL Low 12.0 - 16.0 g/dL [facility] Interpretation and review of laboratory results Abnormal [facility] MCH (RBC) [Entitic mass] 30.7 pg 26.0 - 34.0 pg [facility] MCHC (RBC) [Mass/Vol] 33.9 g/dL 32.0 - 36.0 g/dL [facility] MCV (RBC) [Entitic vol] 91 fL 80 - 100 fL [facility] Nucleated RBC/100 WBC (Bld) [Ratio] 0.0 % [facility] Platelets (Bld) [#/Vol] 215 10*3/uL [facility] RBC (Bld) [#/Vol] 3.45 10*6/uL [facility] WBC (Bld) [#/Vol] 4.0 10*3/uL [facility] Erythrocyte distribution width (RBC) [Ratio] 12.9 % Normal 11.5-14.5 [facility] Comment on above: Performed By: #### 5 2969-3 #### ALON Johnson ([id number]) [facility] ([facility]) [address] [place] [address] Hematocrit (Bld) [Volume fraction] 31.3 % Low 36.0-46.0 [facility] Comment on above: Performed By: #### 5 2969-3 #### ALON Johnson ([id number]) [facility] ([facility]) [address] [place] [address] Hemoglobin (Bld) [Mass/Vol] 10.6 g/dL Low 12.0-16.0 [facility] Comment on above: Performed By: #### 5 2969-3 #### ALON Johnson ([id number]) [facility] ([facility]) [address] [place] [address] 33164 MCH (RBC) [Entitic mass] 30.7 pg Normal 26.0-34.0 [facility] Comment on above: Performed By: #### 5 2969-3 #### ALON Johnson ([id number]) [facility] ([facility]) [address] [place] [address] 73174 MCHC (RBC) [Mass/Vol] 33.9 g/dL Normal 32.0-36.0 [facility] Comment on above: Performed By: #### 5 2969-3 #### ALON Johnson ([id number]) [facility] ([facility]) [address] [place] [address] 07091 MCV (RBC) [Entitic vol] 91 fL Normal 80-100 [facility] Comment on above: Performed By: #### 5 2969-3 #### ALON Johnson ([id number]) [facility] ([facility]) [address] [place] [address] 29625 Nucleated RBC/100 WBC (Bld) [Ratio] 0.0 /100 WBCs Normal 0.0-0.0 [facility] Comment on above: Performed By: #### 5 2969-3 #### ALON Johnson ([id number]) [facility] ([facility]) [address] [place] [address] 15067 Platelets (Bld) [#/Vol] 215 x10*3/uL Normal 150-450 [facility] Comment on above: Performed By: #### 5 2969-3 #### ALON Johnson ([id number]) [facility] ([facility]) [address] [place] [address] 31126 RBC (Bld) [#/Vol] 3.45 x10*6/uL Low 4.00-5.20 [facility] Comment on above: Performed By: #### 5 2969-3 #### ALON Johnson ([id number]) [facility] ([facility]) [address] [place] [address] 44610 WBC (Bld) [#/Vol] 4.0 x10*3/uL Low 4.4-11.3 [facility] Comment on above: Performed By: #### 5 2969-3 #### ALON Johnson ([id number]) [facility] ([facility]) [address] [place] [address] 60949 Gastrointestinal pathogens i dentified HANK+probe Nom (Stl)Ordered By: Edwige Bronson on 03-10-2023 Campylobacter Group Not detected Not Detected [facility] E. coli stx1 gene HANK+probe Ql (Stl) Not detected Not Detected [facility] E. coli stx2 gene HANK+probe Ql (Stl) Not detected Not Detected [facility] Interpretation and review of laboratory results Normal [facility] Norovirus genogroup I and II RNA HANK+probe Nom (Stl) Not detected Not Detected [facility] Rotavirus RNA HANK+probe Nom (Stl) Not detected Not Detected [facility] Salmonella species Not detected Not Detected [facility] Shigella sp DNA HANK+probe Ql (Unsp spec) Not detected Not Detected [facility] Vibrio Group Not detected Not Detected [facility] Y. enterocolitica DNA HANK+probe Ql (Stl) Not detected Not Detected [facility] Glucose Test strip manual (B ld) [Mass/Vol]on 03-10-2023 Glucose [Mass/Vol] 104 mg/dL High 74 - 99 mg/dL [facility] Interpretation and review of laboratory results Abnormal [facility] Glucose [Mass/Vol] 104 mg/dL High 74-99 [facility] Comment on above: Performed By: #### 5 2969-3 #### ALON Johnson ([id number]) [facility] ([facility]) [address] [place] [address] 84891 Glucose [Mass/Vol] 82 mg/dL 74 - 99 mg/dL [facility] Glucose [Mass/Vol] 109 mg/dL High 74 - 99 mg/dL [facility] Interpretation and review of laboratory results Normal [facility] Interpretation and review of laboratory results Abnormal [facility] Glucose [Mass/Vol] 109 mg/dL High 74-99 [facility] Comment on above: Performed By: #### 5 2969-3 #### ALON Johnson ([id number]) [facility] ([facility]) [address] [place] [address] 09307 Glucose [Mass/Vol] 84 mg/dL 74 - 99 mg/dL [facility] Interpretation and review of laboratory results Normal [facility] Glucose [Mass/Vol] 84 mg/dL Normal 74-99 [facility] Comment on above: Performed By: #### 5 2969-3 #### ALON Johnson ([id number]) [facility] ([facility]) [address] [place] [address] Glucose [Mass/Vol] 79 mg/dL 74 - 99 mg/dL [facility] Interpretation and review of laboratory results Normal [facility] Glucose [Mass/Vol] 79 mg/dL Normal 74-99 [facility] Comment on above: Performed By: #### 5 2969-3 #### ALON Johnson ([id number]) [facility] ([facility]) [address] [place] [address] Basic metabolic 2000 panelon 03-09-2023 Anion gap [Moles/Vol] 10 mmol/L NINF - 19 mmol/L [facility] Calcium [Mass/Vol] 8.3 mg/dL Low 8.5 - 10.4 mg/dL [facility] Chloride [Moles/Vol] 105 mmol/L 97 - 107 mmol/L [facility] CO2 [Moles/Vol] 20 mmol/L Low 24 - 31 mmol/L [facility] Creatinine [Mass/Vol] 0.60 mg/dL 0.40 - 1.60 mg/dL [facility] eGFR - PINF [facility] Comment on above: Calculations of jessica mated GFR are performed using the 2020 CKD-EPI Study Refit equation without the race variable for the IDMS-Traceable creatinine methods. https://jasn.asnjournals.org/content//ASN.84121333 88 Glucose [Mass/Vol] 98 mg/dL 65 - 99 mg/dL [facility] Interpretation and review of laboratory results Abnormal [facility] Potassium [Moles/Vol] 3.7 mmol/L 3.4 - 5.1 mmol/L [facility] Sodium [Moles/Vol] 135 mmol/L 133 - 145 mmol/L [facility] Urea nitrogen [Mass/Vol] mg/dL Low 8 - 25 mg/dL [facility] Comment on above: Result rechecked [facility] Anion gap [Moles/Vol] 10 mmol/L Normal <=19 [facility] Comment on above: Performed By: #### 2 4321-2 ####MELISA Galvan ([id number])[facility] ()[address] [place] [address] Calcium [Mass/Vol] 8.3 mg/dL Low 8.5-10.4 [facility] Comment on above: Performed By: #### 2 4321-2 ####MELISA Galvan ([id number])[facility] ()[address] [place] [address] Chloride [Moles/Vol] 105 mmol/L Normal 97-107 [facility] Comment on above: Performed By: #### 2 4321-2 ####MELISA Galvan ([id number])[facility] ()[address] [place] [address] CO2 [Moles/Vol] 20 mmol/L Low 24-31 [facility] Comment on above: Performed By: #### 2 4321-2 ####MELISA Galvan ([id number])[facility] ()[address] [place] [address] Creatinine [Mass/Vol] 0.60 mg/dL Normal 0.40-1.60 [facility] Comment on above: Performed By: #### 2 4321-2 ####MELISA Galvan ([id number])[facility] ()[address] [place] [address] GFR/1.73 sq M.predicted MDRD (S/P/Bld) [Vol rate/Area] mL/min/{1.73_m2} Normal >60 [facility] Comment on above: Result Comment: Calc ulations of estimated GFR are performed using the 2020 CKD-EPI Study Refit equation without the race variable for the IDMS-Traceable creatinine methods. https://jasn.asnjournals.org/content//ASN.33256317 88 Performed By: #### 2 4321-2 ####MELISA Galvan ([id number])[facility] ()[address] [place] [address] Glucose [Mass/Vol] 98 mg/dL Normal 65-99 [facility] Comment on above: Performed By: #### 2 4321-2 ####MELISA Galvan ([id number])[facility] ()[address] [place] [address] Potassium [Moles/Vol] 3.7 mmol/L Normal 3.4-5.1 [facility] Comment on above: Performed By: #### 2 4321-2 ####MELISA Galvan ([id number])[facility] ()[address] [place] [address] Sodium [Moles/Vol] 135 mmol/L Normal 133-145 [facility] Comment on above: Performed By: #### 2 4321-2 ####MELISA Galvan ([id number])[facility] ()[address] [place] [address] Urea nitrogen [Mass/Vol] mg/dL Low 8-25 [facility] Comment on above: Result Comment: Resu lt rechecked Performed By: #### 2 4321-2 ####MELISA Galvan ([id number])[facility] ()[address] [place] [address] C. difficile toxin A+B tcdA+ tcdB genes HANK+probe Ql (Stl)on 03-09-2023 Interpretation and review of laboratory results Normal [facility] This test is an FDA-cleared [...] performed more than once per 7 days. [facility] C. difficile, PCRon 03-09-19 C. difficile toxin A+B tcdA+tcdB genes HANK+probe Ql (Stl) Not detected Not Detected [facility] CBC panel Auto (Bld)on 03-09 Erythrocyte distribution width (RBC) [Ratio] 12.7 % 11.5 - 14.5 % [facility] Hematocrit (Bld) [Volume fraction] 34.6 % Low 36.0 - 46.0 % [facility] Hemoglobin (Bld) [Mass/Vol] 11.7 g/dL Low 12.0 - 16.0 g/dL [facility] Interpretation and review of laboratory results Abnormal [facility] MCH (RBC) [Entitic mass] 30.8 pg 26.0 - 34.0 pg [facility] MCHC (RBC) [Mass/Vol] 33.8 g/dL 32.0 - 36.0 g/dL [facility] MCV (RBC) [Entitic vol] 91 fL 80 - 100 fL [facility] Nucleated RBC/100 WBC (Bld) [Ratio] 0.0 % [facility] Platelets (Bld) [#/Vol] 226 10*3/uL [facility] RBC (Bld) [#/Vol] 3.80 10*6/uL [facility] WBC (Bld) [#/Vol] 6.8 10*3/uL [facility] Erythrocyte distribution width (RBC) [Ratio] 12.7 % Normal 11.5-14.5 [facility] Comment on above: Performed By: #### 5 8410-2 ####MELISA Galvan ([id number])[facility] ()[address] [place] [address] Hematocrit (Bld) [Volume fraction] 34.6 % Low 36.0-46.0 [facility] Comment on above: Performed By: #### 5 8410-2 ####MELISA Galvan ([id number])[facility] ()[address] [place] [address] Hemoglobin (Bld) [Mass/Vol] 11.7 g/dL Low 12.0-16.0 [facility] Comment on above: Performed By: #### 5 8410-2 ####MELISA Galvan ([id number])[facility] ()[address] [place] [address] MCH (RBC) [Entitic mass] 30.8 pg Normal 26.0-34.0 [facility] Comment on above: Performed By: #### 5 8410-2 ####MELISA Galvan ()[facility] ()[address] [place] [address] MCHC (RBC) [Mass/Vol] 33.8 g/dL Normal 32.0-36.0 [facility] Comment on above: Performed By: #### 5 8410-2 ####MELISA Galvan ([id number])[facility] ()[address] [place] [address] MCV (RBC) [Entitic vol] 91 fL Normal 80-100 [facility] Comment on above: Performed By: #### 5 8410-2 ####MELISA Galvan ()[facility] ()[address] [place] [address] Nucleated RBC/100 WBC (Bld) [Ratio] 0.0 /100 WBCs Normal 0.0-0.0 [facility] Comment on above: Performed By: #### 5 8410-2 ####MELISA Galvan ([id number])[facility] ()[address] [place] [address] Platelets (Bld) [#/Vol] 226 x10*3/uL Normal 150-450 [facility] Comment on above: Performed By: #### 5 8410-2 ####MELISA Galvan ([id number])[facility] ()[address] [place] [address] RBC (Bld) [#/Vol] 3.80 x10*6/uL Low 4.00-5.20 [facility] Comment on above: Performed By: #### 5 8410-2 ####MELISA Galvan ([id number])[facility] ()[address] [place] [address] WBC (Bld) [#/Vol] 6.8 x10*3/uL Normal 4.4-11.3 [facility] Comment on above: Performed By: #### 5 8410-2 ####MELISA Galvan ([id number])[facility] ()[address] [place] [address] Clostridioides difficile tox in A+B tcdA+tcdB geneson 03-09-2023 C. difficile toxin A+B tcdA+tcdB genes HANK+probe Ql (Stl) Clostridioides difficile toxin A+B tcdA+tcdB genes Not Detected Normal Not Detected [facility] Comment on above: Order Comment: This [...] Performed By: #### 8 0685-1 ####MELISA Galvan ([id number])[facility] ()[address] [place] [address] Gastrointestinal pathogens i dentifiedon 03-09-2023 Gastrointestinal pathogens [...] Rotavirus RNA Not Detected Normal Not Detected [facility] Comment on above: Performed By: #### 5 2969-3 #### ALON Johnson ([id number]) [facility] ([facility]) [address] [place] [address] Glucose Test strip manual (B ld) [Mass/Vol]on 03-09-2023 Glucose [Mass/Vol] 82 mg/dL Normal 74-99 [facility] Comment on above: Performed By: #### 5 2969-3 #### ALON Johnson ([id number]) [facility] ([facility]) [address] [place] [address] Glucose [Mass/Vol] 91 mg/dL 74 - 99 mg/dL [facility] Interpretation and review of laboratory results Normal [facility] Glucose [Mass/Vol] 91 mg/dL Normal 74-99 [facility] Comment on above: Performed By: #### 5 2969-3 #### ALON Johnson ([id number]) [facility] ([facility]) [address] [place] [address] Glucose [Mass/Vol] 83 mg/dL 74 - 99 mg/dL [facility] Interpretation and review of laboratory results Normal [facility] Glucose [Mass/Vol] 83 mg/dL Normal 74-99 [facility] Comment on above: Performed By: #### 2 341-6 ####MELISA Galvan ([id number])[facility] ()[address] [place] [address] Glucose [Mass/Vol] 82 mg/dL 74 - 99 mg/dL [facility] Interpretation and review of laboratory results Normal [facility] Glucose [Mass/Vol] 82 mg/dL Normal 74-99 [facility] Comment on above: Performed By: #### 2 341-6 ####MELISA Galvan ([id number])[facility] ()[address] [place] [address] Glucose [Mass/Vol] 120 mg/dL High 74 - 99 mg/dL [facility] Interpretation and review of laboratory results Abnormal [facility] Glucose [Mass/Vol] 120 mg/dL High 74-99 [facility] Comment on above: Performed By: #### 2 341-6 ####MELISA Galvan ([id number])[facility] ()[address] [place] [address] Glucose [Mass/Vol] 62 mg/dL Low 74 - 99 mg/dL [facility] Interpretation and review of laboratory results Abnormal [facility] Glucose [Mass/Vol] 62 mg/dL Low 74-99 [facility] Comment on above: Performed By: #### 2 341-6 ####MELISA ALEXANDRO J ([id number])[facility] ()[address] [place] [address] Basic metabolic 2000 panelon 03-08-2023 Anion gap [Moles/Vol] 8 mmol/L NINF - 19 mmol/L [facility] Calcium [Mass/Vol] 8.2 mg/dL Low 8.5 - 10.4 mg/dL [facility] Chloride [Moles/Vol] 106 mmol/L 97 - 107 mmol/L [facility] CO2 [Moles/Vol] 22 mmol/L Low 24 - 31 mmol/L [facility] Creatinine [Mass/Vol] 0.70 mg/dL 0.40 - 1.60 mg/dL [facility] eGFR - PINF [facility] Comment on above: Calculations of jessica mated GFR are performed using the 2020 CKD-EPI Study Refit equation without the race variable for the IDMS-Traceable creatinine methods. https://jasn.asnjournals.org/content//ASN.45302613 88 Glucose [Mass/Vol] 91 mg/dL 65 - 99 mg/dL [facility] Interpretation and review of laboratory results Abnormal [facility] Potassium [Moles/Vol] 3.7 mmol/L 3.4 - 5.1 mmol/L [facility] Sodium [Moles/Vol] 136 mmol/L 133 - 145 mmol/L [facility] Urea nitrogen [Mass/Vol] 3 mg/dL Low 8 - 25 mg/dL [facility] Anion gap [Moles/Vol] 8 mmol/L Normal <=19 [facility] Comment on above: Performed By: #### 2 4323-8 #### MELISA Galvan ([id number]) [facility] () [address] [place] [address] Calcium [Mass/Vol] 8.2 mg/dL Low 8.5-10.4 [facility] Comment on above: Performed By: #### 2 4323-8 #### MELISA Galvan ([id number]) [facility] () [address] [place] [address] Chloride [Moles/Vol] 106 mmol/L Normal 97-107 [facility] Comment on above: Performed By: #### 2 4323-8 #### MELISA Galvan ([id number]) [facility] () [address] [place] [address] CO2 [Moles/Vol] 22 mmol/L Low 24-31 [facility] Comment on above: Performed By: #### 2 4323-8 #### MELISA Galvan (72100) [facility] () [address] [place] [address] Creatinine [Mass/Vol] 0.70 mg/dL Normal 0.40-1.60 [facility] Comment on above: Performed By: #### 2 4323-8 #### MELISA Galvan (69730) [facility] () [address] [place] [address] GFR/1.73 sq M.predicted MDRD (S/P/Bld) [Vol rate/Area] mL/min/{1.73_m2} Normal >60 [facility] Comment on above: Result Comment: Calc ulations of estimated GFR are performed using the 2020 CKD-EPI Study Refit equation without the race variable for the IDMS-Traceable creatinine methods. https://jasn.asnjournals.org/content/early/ASN.51646707 88 Performed By: #### 2 4323-8 #### MELISA Galvan (77314) [facility] () [address] [place] [address] Glucose [Mass/Vol] 91 mg/dL Normal 65-99 [facility] Comment on above: Performed By: #### 2 4323-8 #### MELISA Galvan (47281) [facility] () [address] [place] [address] Potassium [Moles/Vol] 3.7 mmol/L Normal 3.4-5.1 [facility] Comment on above: Performed By: #### 2 4323-8 #### MELISA Galvan (87451) [facility] () [address] [place] [address] Sodium [Moles/Vol] 136 mmol/L Normal 133-145 [facility] Comment on above: Performed By: #### 2 4323-8 #### MELISA Galvan ([id number]) [facility] () [address] [place] [address] Urea nitrogen [Mass/Vol] 3 mg/dL Low 8-25 [facility] Comment on above: Performed By: #### 2 4323-8 #### MELISA Galvan ([id number]) [facility] () [address] [place] [address] CBC panel Auto (Bld)on 03-08 Erythrocyte distribution width (RBC) [Ratio] 12.8 % 11.5 - 14.5 % [facility] Hematocrit (Bld) [Volume fraction] 32.2 % Low 36.0 - 46.0 % [facility] Hemoglobin (Bld) [Mass/Vol] 10.9 g/dL Low 12.0 - 16.0 g/dL [facility] Interpretation and review of laboratory results Abnormal [facility] MCH (RBC) [Entitic mass] 31.3 pg 26.0 - 34.0 pg [facility] MCHC (RBC) [Mass/Vol] 33.9 g/dL 32.0 - 36.0 g/dL [facility] MCV (RBC) [Entitic vol] 93 fL 80 - 100 fL [facility] Nucleated RBC/100 WBC (Bld) [Ratio] 0.0 % [facility] Platelets (Bld) [#/Vol] 171 10*3/uL [facility] RBC (Bld) [#/Vol] 3.48 10*6/uL [facility] WBC (Bld) [#/Vol] 4.2 10*3/uL [facility] Erythrocyte distribution width (RBC) [Ratio] 12.8 % Normal 11.5-14.5 [facility] Comment on above: Performed By: #### 2 4323-8 #### MELISA Galvan (47823) [facility] () [address] [place] [address] Hematocrit (Bld) [Volume fraction] 32.2 % Low 36.0-46.0 [facility] Comment on above: Performed By: #### 2 4322-8 #### MELISA Galvan (71200) [facility] () [address] [place] [address] Hemoglobin (Bld) [Mass/Vol] 10.9 g/dL Low 12.0-16.0 [facility] Comment on above: Performed By: #### 2 432-8 #### MELISA Galvan (95102) [facility] () [address] [place] [address] MCH (RBC) [Entitic mass] 31.3 pg Normal 26.0-34.0 [facility] Comment on above: Performed By: #### 2 432-8 #### MELISA Galvan ([id number]) [facility] () [address] [place] [address] MCHC (RBC) [Mass/Vol] 33.9 g/dL Normal 32.0-36.0 [facility] Comment on above: Performed By: #### 2 4323-8 #### MELISA Galvan (39852) [facility] () [address] [place] [address] MCV (RBC) [Entitic vol] 93 fL Normal 80-100 [facility] Comment on above: Performed By: #### 2 4323-8 #### MELISA Galvan (33945) [facility] () [address] [place] [address] Nucleated RBC/100 WBC (Bld) [Ratio] 0.0 /100 WBCs Normal 0.0-0.0 [facility] Comment on above: Performed By: #### 2 4323-8 #### MELISA Galvan (51161) [facility] () [address] [place] [address] Platelets (Bld) [#/Vol] 171 x10*3/uL Normal 150-450 [facility] Comment on above: Performed By: #### 2 4323-8 #### MELISA Galvan (84714) [facility] () [address] [place] [address] RBC (Bld) [#/Vol] 3.48 x10*6/uL Low 4.00-5.20 [facility] Comment on above: Performed By: #### 2 4323-8 #### MELISA Galvan (99073) [facility] () [address] [place] [address] WBC (Bld) [#/Vol] 4.2 x10*3/uL Low 4.4-11.3 [facility] Comment on above: Performed By: #### 2 4323-8 #### MELISA Galvan ([id number]) [facility] () [address] [place] [address] Glucose Test strip manual (B ld) [Mass/Vol]on 03-08-2023 Glucose [Mass/Vol] 89 mg/dL 74 - 99 mg/dL [facility] Interpretation and review of laboratory results Normal [facility] Glucose [Mass/Vol] 89 mg/dL Normal 74-99 [facility] Comment on above: Performed By: #### 2 341-6 ####MELISA Galvan ([id number])[facility] ()[address] [place] [address] Glucose [Mass/Vol] 85 mg/dL 74 - 99 mg/dL [facility] Interpretation and review of laboratory results Normal [facility] Glucose [Mass/Vol] 85 mg/dL Normal 74-99 [facility] Comment on above: Performed By: #### 2 341-6 ####MELISA Galvan ([id number])[facility] ()[address] [place] [address] Glucose [Mass/Vol] 151 mg/dL High 74 - 99 mg/dL [facility] Interpretation and review of laboratory results Abnormal [facility] Glucose [Mass/Vol] 151 mg/dL High 74-99 [facility] Comment on above: Performed By: #### 2 341-6 ####MELISA Galvan ([id number])[facility] ()[address] [place] [address] Glucose [Mass/Vol] 89 mg/dL 74 - 99 mg/dL [facility] Interpretation and review of laboratory results Normal [facility] Glucose [Mass/Vol] 89 mg/dL Normal 74-99 [facility] Comment on above: Performed By: #### 2 4323-8 #### MELISA Galvan (13339) [facility] () [address] [place] [address] Glucose [Mass/Vol] 97 mg/dL 74 - 99 mg/dL [facility] Interpretation and review of laboratory results Normal [facility] Glucose [Mass/Vol] 97 mg/dL Normal 74-99 [facility] Comment on above: Performed By: #### 2 4323-8 #### MELISA Galvan ([id number]) [facility] () [address] [place] [address] Glucose [Mass/Vol] 102 mg/dL High 74 - 99 mg/dL [facility] Interpretation and review of laboratory results [facility] Glucose [Mass/Vol] 102 mg/dL High 74-99 [facility] Comment on above: Performed By: #### 2 4323-8 #### MELISA Galvan ([id number]) [facility] (MW) [address] [place] [address] Surgical pathology studyOrde red By: Melisa Mc on 03-08-2023 Laboratory comment John (Report) [id number] mbGFuZzEwMzNcZnRuYm pcdWMxIHtccnRmMVxzc 5HeO1OaEqFmBCphioWf XGRlZmxhbmcxMDMzXGZ 0bmJqXHVjMVxkZWZmMH vnYd2vsVSjnBqpSkHrA PMnn0ilujNSUZmnBGDR BEk2a2dyQKTxReQ9rPS vGOlqT3qeviJatWYfR5 Eir6NeQAq8xY61JVAas O1umXPfMXrvqcFtFbG4 DXcwTYNlGaN6VKQflZI jLCRsM9pkUZSdMCegUK KjTUgmiSVuRJA4sBfgg 1P1uXTwcKGeaIszDbSx SlWkQwVBt3DeTUb5gGu pW2FnUULxXmK5fINyZE LhJSkqQJEoPCGfovA5l A38RMfnyfA4bBPzi5Ca v63wk768yI6kvVOnVXG 3MTIyNDBccGFwZXJoMT Y5XPOnxXWmN9hoChQch XPjV4LzWiFidEQdP6Ya YnTpmFRqD1DbZqWmuGZ aBSYqoXB7IIptt953JK M9HfFtAV6mF2Ufh3O1y N8xsUTlUZTfvGPmKhWr XXXsje3jwDReWSitz8M xRCE0bfK1lYKpzXVjHK ScYL26Cyxew9VwSkyfW CU9RSUqdqIvf0Ehx0sm KtCkhqIbI2ieP5QaWUD oZWFkXHBnYnJkcmZvb3 Ezl0KumCHiiRd0e2ymE EJiPJYrsTyvs8fdXVA0 UDXaI8C7qGQog3adOJh xLPFvaHY5ncZ9IUkeDA TgsoQ0avL6CItlSSHum VP9zeQ9GMcuCFEoByV5 fhL4DBqfNCMbSWF4FdM oNNVvt5CpdliaBgCeg6 DnjXWtWGgbT63ov459M VUnugMaB6zyxHPquwnm rFMjdrvxLAmvypF4GOC sXHBsYWluXGYxXGZzMj BcbGFuZzEwMzNcaGlja FxmMVxkYmNoXGYxXGxv I2dtRtOlFxDfVKQTxUA 7sSXzy3zemaK0pKJwYV 6qHNPxzSHhcxYvv7Q6W VE4zIOxeK7iqXUwYMNw wEOictFbho44qIUupHT 0AAOtYJZadMEdeM8cXX AeJSVEwS0jkTPEecJbl pOfCVDnfVviwr6CnUHt yr8prYWbO9UbhQpdaUE zIHRoYXQgdGhleSBoYX NzYVZzgxwyr7RyPZZxx DIuM9NyXO4sXZWmsm78 [facility] Work Phone: Pathology report Cancer Narrative Surgical Pathology Case: [id number] Authorizing Provider: Sherry Magaña MD Collected: 03/05/2023 1125 Ordering Location: [facility] Received: 03/05/2023 1314 Center OR Pathologist: Melisa Mc MD Specimen: LIGAMENT, Median Arcuate Ligament [facility] Work Phone: Pathology report final diagnosis Narrative v9bjjVGvAGVdqAEtCWK wNFxhbnNpXHNwbHRwZ3 SlbxcsTWbfZB1oDV2sd GxhdHRveWVuXGRlZmYw k7sxy869nUWec3auPEB WAVciPERIYTo7t6ohZV NCrmipaPi1bJftK42yv 6C8CegqI7elQVNcZRdc DCIbPKggsJCaIKv5EKE hcGVydzEyMjQwXHBhcG AkwHZ8HOCxWR9tkbevR WlrKCmrOLJmwzT6YCYk aXVpU3TnQHTvPO9knwk uZPX1TQgvEGQlFLQ5Qv YdPASlj6Uydto5HxTju Hu1k1akZJKfAPGccMdo o3ysION1NPTztCXtU9f wlU6pREUkPN9svutuw2 dnDXmaUWrvLVVcdPR2y aR0MUXbtYIoV7OkuG0o NDQwXHBhcmRccGxhaW5 cZjFcZnMyMlxjZjFccG PqGQ0YJBuPKaPKYtNPK VKWQAoQB2OWMZ0WCXBN PVOHU3tUZbuwbDHlEYA jDgRMzCGpb8XozSUem5 IpPQ5iaFNokHIosgXba 11maTnoQuPnM24dknBw r9RhrPjifUtusCKsgNs xm5QmHRNmy6E3IMmtT3 xpbmljYWxseSBtZWRpY E6sGZIskBB6RGVgcYge fVAfsSYnlX6bke9wWG5 ccGFyfQ== [facility] Work Phone: Pathology report gross observation Narrative r6xpcFLhYWSniFKABAM 6SDAgHF2xlHxkzYd7tM ioSAPgmoD2kFXjEIqnx 4apYYJ9w8jltcUEWeto BLLcGY4sYDdmWQQqXU3 nZmUwXGRlZmYxXHBhcG VydzEyMjQwXHBhcGVya WV5NVWjLL7oizrlTLex JRjpNBHuiqJ3SSLfaUD kL9EzYRPjPS2jaqnaME M8ZKUQXkqaCu3pcMLka CANCntcZjFcZmNoYXJz CEEhRRBrhAepU7Tib5W mBJq5tA0Ic3zqChyfB0 nmikMewOWlYy2udJIQz lhpbXu5yE8EEBLzX3Oh RI7Rc9huOAQntTNgRZW 8CPagq9saUVerHPM1WR KjDZQjCZIdQB2WLiBbL EbxOELjDJJdOXa5PTj6 XYRADRCvMbM1YDG9QJw 0WQz3GAcknneoFRp9ON PtOIjkwGBgWV4cuTzhG svihFnff7NlbJLsOQPy IFxcaWQgNTEwMDIgXFx vGqZDJsTfDrF2RiWjXK KeVjF5DUz1UZZIHuSxQ rOiSRPgVci2PRYoMHs7 IHa8FLdBDmI0AgE3VQy 0FmxnIFB5TfDqJTgedY BcXHQgMiBcXHNzIDMgX YxhcAWuCT3cdWdjUHQd IR4GDPEcXTlgHAOuuKQ BPFY6YE8pNMJGGqkzbM LqGDFxNXwuyBQeQ4evD jJcZnMyMCBBOiBSZWNl aXZlZCBmcmVzaCBsYWJ lbGVkIHdpdGggdGhlIH WnxGullaUjhdXoLX5vR EVqAMSbm7FonZYmdWHt rL7pDXMbJY9qMOHwHFD qID4nHPUbbRQ2LWRchC dhbWVudCIsIGFyZSAyI GlycmVndWxhciBhbmQg kPSqXKYwHDHzn6T0IWK nh3H4JRByjbBpaGDeqM YldTOhr1WdoA6oAYTfP QQovOB3EQTcHmV8MXSq VgTymCSugrImG3bkZOx elQQmEPZAqAOts6MyX2 itFZ1xqCPna0QomAlyk mVkIGFuZCBlbnRpcmVs hMRngAAmcNP0WDRhfJ9 vMKLeBXPiLCP0QN7elN OfPV2ISTWJDGJlxyMYW sjrTLAdNUbKtc5uwiLh hNBbKND7dV7jHHOrdvS dba0nBTMnfJiijFEgKH 1QFZ1tazBro1i5nQLTf 3NwaXRhbHMgTGFrZSBX WUA8AQ8lPHafLGycO7T ctJZrPOXiexMWCfY2SG XjHBJ7X7vbNOEEgzOcb OCglYUxEK9KW2nruA65 K5tviCjhT4mpeeT4GAB 9QZstGMIlCQtsu6VnBG xlcGljWHNhMzAgDQpQa D7hZAhyQKP4LDglJHPm LTYwMjUgIEZheDogKDQ 3YVngExQxSAO0NMTTUo khgFvgOjLojUGfDlZ6S CKbvUAxVCR3HB6czHin MIBeF9ZwP9FlvrR1FQK qscGNXgayFXLdWL9AVU VgAMbgWG2YnB== [facility] Work Phone: Pathology report relevant history Narrative g5wqkXNaMXZxr1xzWUW mbGFuZzEwMzNcZnRuYm k7MIDfyuD9Nud8SLMuX UrufD1qSAArDNcjU0jr ghAplSLgH8Edl5EiSNj 9gD1eeFsplK4jKyEnRq GjEWVHeaRtb0GlGOclL 91iw1dlAgdjOREoPFPm qGWbIFHrU3LznFWtkMw rTV4cbdGyo3wwOKPjxI MqYDFKOu8KW0FgKEsUK wsvWL1hlGYgUY7= [facility] Work Phone: [facility] Work Phone: Basic metabolic 2000 panelon 03-07-2023 Anion gap [Moles/Vol] 7 mmol/L NINF - 19 mmol/L [facility] Calcium [Mass/Vol] 8.0 mg/dL Low 8.5 - 10.4 mg/dL [facility] Chloride [Moles/Vol] 111 mmol/L High 97 - 107 mmol/L [facility] CO2 [Moles/Vol] 21 mmol/L Low 24 - 31 mmol/L [facility] Creatinine [Mass/Vol] 0.70 mg/dL 0.40 - 1.60 mg/dL [facility] eGFR - PINF [facility] Comment on above: Calculations of jessica mated GFR are performed using the 2020 CKD-EPI Study Refit equation without the race variable for the IDMS-Traceable creatinine methods. https://jasn.asnjournals.org/content//ASN.90222503 88 Glucose [Mass/Vol] 100 mg/dL High 65 - 99 mg/dL [facility] Interpretation and review of laboratory results Abnormal [facility] Potassium [Moles/Vol] 3.9 mmol/L 3.4 - 5.1 mmol/L [facility] Sodium [Moles/Vol] 139 mmol/L 133 - 145 mmol/L [facility] Urea nitrogen [Mass/Vol] 4 mg/dL Low 8 - 25 mg/dL [facility] Anion gap [Moles/Vol] 7 mmol/L Normal <=19 [facility] Comment on above: Performed By: #### 5 7021-8 #### MELISA Galvan ([id number]) [facility] () [address] [place] [address] Calcium [Mass/Vol] 8.0 mg/dL Low 8.5-10.4 [facility] Comment on above: Performed By: #### 5 7021-8 #### MELISA Galvan ([id number]) [facility] () [address] [place] [address] Chloride [Moles/Vol] 111 mmol/L High 97-107 [facility] Comment on above: Performed By: #### 5 7021-8 #### MELISA Galvan ([id number]) [facility] () [address] [place] [address] CO2 [Moles/Vol] 21 mmol/L Low 24-31 [facility] Comment on above: Performed By: #### 5 7021-8 #### MELISA Galvan ([id number]) [facility] () [address] [place] [address] Creatinine [Mass/Vol] 0.70 mg/dL Normal 0.40-1.60 [facility] Comment on above: Performed By: #### 5 7021-8 #### MELISA Galvan ([id number]) [facility] () [address] [place] [address] GFR/1.73 sq M.predicted MDRD (S/P/Bld) [Vol rate/Area] mL/min/{1.73_m2} Normal >60 [facility] Comment on above: Result Comment: Calc ulations of estimated GFR are performed using the 2020 CKD-EPI Study Refit equation without the race variable for the IDMS-Traceable creatinine methods. https://jasn.asnjournals.org/content//ASN.21511106 88 Performed By: #### 5 7021-8 #### MELISA Galvan ([id number]) [facility] () [address] [place] [address] Glucose [Mass/Vol] 100 mg/dL High 65-99 [facility] Comment on above: Performed By: #### 5 7021-8 #### MELISA Galvan ([id number]) [facility] () [address] [place] [address] Potassium [Moles/Vol] 3.9 mmol/L Normal 3.4-5.1 [facility] Comment on above: Performed By: #### 5 7021-8 #### MELISA Galvan ([id number]) [facility] () [address] [place] [address] Sodium [Moles/Vol] 139 mmol/L Normal 133-145 [facility] Comment on above: Performed By: #### 5 7021-8 #### MELISA Galvan ([id number]) [facility] () [address] [place] [address] Urea nitrogen [Mass/Vol] 4 mg/dL Low 8-25 [facility] Comment on above: Performed By: #### 5 7021-8 #### MELISA Galvan ([id number]) [facility] () [address] [place] [address] CBC panel Auto (Bld)on 03-07 Erythrocyte distribution width (RBC) [Ratio] 13.2 % 11.5 - 14.5 % [facility] Hematocrit (Bld) [Volume fraction] 33.3 % Low 36.0 - 46.0 % [facility] Hemoglobin (Bld) [Mass/Vol] 11.0 g/dL Low 12.0 - 16.0 g/dL [facility] Interpretation and review of laboratory results Abnormal [facility] MCH (RBC) [Entitic mass] 31.3 pg 26.0 - 34.0 pg [facility] MCHC (RBC) [Mass/Vol] 33.0 g/dL 32.0 - 36.0 g/dL [facility] MCV (RBC) [Entitic vol] 95 fL 80 - 100 fL [facility] Nucleated RBC/100 WBC (Bld) [Ratio] 0.0 % [facility] Platelets (Bld) [#/Vol] 155 10*3/uL [facility] RBC (Bld) [#/Vol] 3.51 10*6/uL Low [facility] WBC (Bld) [#/Vol] 5.1 10*3/uL [facility] Erythrocyte distribution width (RBC) [Ratio] 13.2 % Normal 11.5-14.5 [facility] Comment on above: Performed By: #### 5 7021-8 #### MELISA Galvan ([id number]) [facility] () [address] [place] [address] Hematocrit (Bld) [Volume fraction] 33.3 % Low 36.0-46.0 [facility] Comment on above: Performed By: #### 7021-8 #### MELISA Galvan ([id number]) [facility] () [address] [place] [address] Hemoglobin (Bld) [Mass/Vol] 11.0 g/dL Low 12.0-16.0 [facility] Comment on above: Performed By: #### 7021-8 #### MELISA Galvan ([id number]) [facility] () [address] [place] [address] MCH (RBC) [Entitic mass] 31.3 pg Normal 26.0-34.0 [facility] Comment on above: Performed By: #### 7021-8 #### MELISA Galvan ([id number]) [facility] () [address] [place] [address] MCHC (RBC) [Mass/Vol] 33.0 g/dL Normal 32.0-36.0 [facility] Comment on above: Performed By: #### 7021-8 #### MELISA Galvan ([id number]) [facility] () [address] [place] [address] MCV (RBC) [Entitic vol] 95 fL Normal 80-100 [facility] Comment on above: Performed By: #### 7021-8 #### MELISA Galvan ([id number]) [facility] () [address] [place] [address] Nucleated RBC/100 WBC (Bld) [Ratio] 0.0 /100 WBCs Normal 0.0-0.0 [facility] Comment on above: Performed By: #### 7021-8 #### MELISA Galvan ([id number]) [facility] () [address] [place] [address] Platelets (Bld) [#/Vol] 155 x10*3/uL Normal 150-450 [facility] Comment on above: Performed By: #### 5 7021-8 #### MELISA Galvan ([id number]) [facility] () [address] [place] [address] RBC (Bld) [#/Vol] 3.51 x10*6/uL Low 4.00-5.20 [facility] Comment on above: Performed By: #### 5 7021-8 #### MELISA Galvan ([id number]) [facility] () [address] [place] [address] WBC (Bld) [#/Vol] 5.1 x10*3/uL Normal 4.4-11.3 [facility] Comment on above: Performed By: #### 5 7021-8 #### MELISA Galvan ([id number]) [facility] () [address] [place] [address] Glucose Test strip manual (B ld) [Mass/Vol]on 03-07-2023 Glucose [Mass/Vol] 125 mg/dL High 74 - 99 mg/dL [facility] Interpretation and review of laboratory results Abnormal [facility] Glucose [Mass/Vol] 125 mg/dL High 74-99 [facility] Comment on above: Performed By: #### 2 4323-8 #### MELISA Galvan ([id number]) [facility] () [address] [place] [address] Glucose [Mass/Vol] 117 mg/dL High 74 - 99 mg/dL [facility] Interpretation and review of laboratory results Abnormal [facility] Glucose [Mass/Vol] 117 mg/dL High 74-99 [facility] Comment on above: Performed By: #### 2 4323-8 #### MELISA Galvan ([id number]) [facility] () [address] [place] [address] Glucose [Mass/Vol] 98 mg/dL 74 - 99 mg/dL [facility] Interpretation and review of laboratory results Normal [facility] Glucose [Mass/Vol] 98 mg/dL Normal 74-99 [facility] Comment on above: Performed By: #### 2 4323-8 #### MELISA Galvan ([id number]) [facility] () [address] [place] [address] Glucose [Mass/Vol] 98 mg/dL 74 - 99 mg/dL [facility] Interpretation and review of laboratory results Normal [facility] Glucose [Mass/Vol] 98 mg/dL Normal 74-99 [facility] Comment on above: Performed By: #### 2 4323-8 #### MELISA Galvan ([id number]) [facility] () [address] [place] [address] Glucose [Mass/Vol] 108 mg/dL High 74 - 99 mg/dL [facility] Interpretation and review of laboratory results Abnormal [facility] Glucose [Mass/Vol] 108 mg/dL High 74-99 [facility] Comment on above: Performed By: #### 5 7021-8 #### MELISA Galvan ([id number]) [facility] () [address] [place] [address] Glucose [Mass/Vol] 119 mg/dL High 74 - 99 mg/dL [facility] Interpretation and review of laboratory results Abnormal [facility] Basic metabolic 2000 panelon 03-06-2023 Anion gap [Moles/Vol] 7 mmol/L NINF - 19 mmol/L [facility] Calcium [Mass/Vol] 8.1 mg/dL Low 8.5 - 10.4 mg/dL [facility] Chloride [Moles/Vol] 109 mmol/L High 97 - 107 mmol/L [facility] CO2 [Moles/Vol] 21 mmol/L Low 24 - 31 mmol/L [facility] Creatinine [Mass/Vol] 0.70 mg/dL 0.40 - 1.60 mg/dL [facility] eGFR - PINF [facility] Comment on above: Calculations of jessica mated GFR are performed using the 2020 CKD-EPI Study Refit equation without the race variable for the IDMS-Traceable creatinine methods. https://jasn.asnjournals.org/content//ASN.50748193 88 Glucose [Mass/Vol] 149 mg/dL High 65 - 99 mg/dL [facility] Interpretation and review of laboratory results Abnormal [facility] Potassium [Moles/Vol] 3.7 mmol/L 3.4 - 5.1 mmol/L [facility] Sodium [Moles/Vol] 137 mmol/L 133 - 145 mmol/L [facility] Urea nitrogen [Mass/Vol] 5 mg/dL Low 8 - 25 mg/dL [facility] Anion gap [Moles/Vol] 7 mmol/L Normal <=19 [facility] Comment on above: Performed By: #### 5 7021-8 #### MELISA Galvan ([id number]) [facility] () [address] [place] [address] Calcium [Mass/Vol] 8.1 mg/dL Low 8.5-10.4 [facility] Comment on above: Performed By: #### 5 7021-8 #### MELISA Galvan ([id number]) [facility] () [address] [place] [address] Chloride [Moles/Vol] 109 mmol/L High 97-107 [facility] Comment on above: Performed By: #### 5 7021-8 #### MELISA Galvan ([id number]) [facility] () [address] [place] [address] CO2 [Moles/Vol] 21 mmol/L Low 24-31 [facility] Comment on above: Performed By: #### 5 7021-8 #### MELISA Galvan ([id number]) [facility] () [address] [place] [address] Creatinine [Mass/Vol] 0.70 mg/dL Normal 0.40-1.60 [facility] Comment on above: Performed By: #### 5 7021-8 #### MELISA Galvan ([id number]) [facility] () [address] [place] [address] GFR/1.73 sq M.predicted MDRD (S/P/Bld) [Vol rate/Area] mL/min/{1.73_m2} Normal >60 [facility] Comment on above: Result Comment: Calc ulations of estimated GFR are performed using the 2020 CKD-EPI Study Refit equation without the race variable for the IDMS-Traceable creatinine methods. https://jasn.asnjournals.org/content/early//ASN.58335102 88 Performed By: #### 5 7021-8 #### MELISA Galvan ([id number]) [facility] () [address] [place] [address] Glucose [Mass/Vol] 149 mg/dL High 65-99 [facility] Comment on above: Performed By: #### 5 7021-8 #### MELISA Galvan ([id number]) [facility] () [address] [place] [address] Potassium [Moles/Vol] 3.7 mmol/L Normal 3.4-5.1 [facility] Comment on above: Performed By: #### 5 7021-8 #### MELISA Galvan ([id number]) [facility] () [address] [place] [address] Sodium [Moles/Vol] 137 mmol/L Normal 133-145 [facility] Comment on above: Performed By: #### 5 7021-8 #### MELISA Galvan ([id number]) [facility] () [address] [place] [address] Urea nitrogen [Mass/Vol] 5 mg/dL Low 8-25 [facility] Comment on above: Performed By: #### 5 7021-8 #### MELISA Galvan ([id number]) [facility] () [address] [place] [address] CBC panel Auto (Bld)on 03-06 Erythrocyte distribution width (RBC) [Ratio] 12.9 % 11.5 - 14.5 % [facility] Hematocrit (Bld) [Volume fraction] 35.1 % Low 36.0 - 46.0 % [facility] Hemoglobin (Bld) [Mass/Vol] 11.8 g/dL Low 12.0 - 16.0 g/dL [facility] Interpretation and review of laboratory results Abnormal [facility] MCH (RBC) [Entitic mass] 30.8 pg 26.0 - 34.0 pg [facility] MCHC (RBC) [Mass/Vol] 33.6 g/dL 32.0 - 36.0 g/dL [facility] MCV (RBC) [Entitic vol] 92 fL 80 - 100 fL [facility] Nucleated RBC/100 WBC (Bld) [Ratio] 0.0 % [facility] Platelets (Bld) [#/Vol] 179 10*3/uL [facility] RBC (Bld) [#/Vol] 3.83 10*6/uL Low [facility] WBC (Bld) [#/Vol] 5.5 10*3/uL [facility] Erythrocyte distribution width (RBC) [Ratio] 12.9 % Normal 11.5-14.5 [facility] Comment on above: Performed By: #### 2 4356-8 #### MELISA Galvan ([id number]) [facility] () [address] [place] [address] Hematocrit (Bld) [Volume fraction] 35.1 % Low 36.0-46.0 [facility] Comment on above: Performed By: #### 2 4356-8 #### MELISA Galvan ([id number]) [facility] () [address] [place] [address] Hemoglobin (Bld) [Mass/Vol] 11.8 g/dL Low 12.0-16.0 [facility] Comment on above: Performed By: #### 2 435-8 #### MELISA Galvan ([id number]) [facility] () [address] [place] [address] MCH (RBC) [Entitic mass] 30.8 pg Normal 26.0-34.0 [facility] Comment on above: Performed By: #### 2 435-8 #### MELISA Galvan ([id number]) [facility] () [address] [place] [address] MCHC (RBC) [Mass/Vol] 33.6 g/dL Normal 32.0-36.0 [facility] Comment on above: Performed By: #### 2 4356-8 #### MELISA Gavlan ([id number]) [facility] () [address] [place] [address] MCV (RBC) [Entitic vol] 92 fL Normal 80-100 [facility] Comment on above: Performed By: #### 2 4356-8 #### MELISA Galvan ([id number]) [facility] () [address] [place] [address] Nucleated RBC/100 WBC (Bld) [Ratio] 0.0 /100 WBCs Normal 0.0-0.0 [facility] Comment on above: Performed By: #### 2 4356-8 #### MELISA Galvan ([id number]) [facility] () [address] [place] [address] Platelets (Bld) [#/Vol] 179 x10*3/uL Normal 150-450 [facility] Comment on above: Performed By: #### 2 4356-8 #### MELISA Galvan ([id number]) [facility] () [address] [place] [address] RBC (Bld) [#/Vol] 3.83 x10*6/uL Low 4.00-5.20 [facility] Comment on above: Performed By: #### 2 4356-8 #### MELISA Galvan ([id number]) [facility] () [address] [place] [address] WBC (Bld) [#/Vol] 5.5 x10*3/uL Normal 4.4-11.3 [facility] Comment on above: Performed By: #### 2 4356-8 #### MELISA Galvan ([id number]) [facility] () [address] [place] [address] Glucose Test strip manual (B ld) [Mass/Vol]on 03-06-2023 Glucose [Mass/Vol] 119 mg/dL High 74-99 [facility] Comment on above: Performed By: #### 5 7021-8 #### MELISA Galvan ([id number]) [facility] () [address] [place] [address] Glucose [Mass/Vol] 103 mg/dL High 74 - 99 mg/dL [facility] Interpretation and review of laboratory results Abnormal [facility] Glucose [Mass/Vol] 103 mg/dL High 74-99 [facility] Comment on above: Performed By: #### 5 7021-8 #### MELISA Galvan ([id number]) [facility] () [address] [place] [address] Glucose [Mass/Vol] 119 mg/dL High 74 - 99 mg/dL [facility] Interpretation and review of laboratory results Abnormal [facility] Glucose [Mass/Vol] 119 mg/dL High 74-99 [facility] Comment on above: Performed By: #### 5 7021-8 #### MELISA Galvan ([id number]) [facility] () [address] [place] [address] Glucose [Mass/Vol] 108 mg/dL High 74 - 99 mg/dL [facility] Interpretation and review of laboratory results Abnormal [facility] Glucose [Mass/Vol] 108 mg/dL High 74-99 [facility] Comment on above: Performed By: #### 5 7021-8 #### MELISA Galvan ([id number]) [facility] () [address] [place] [address] Glucose [Mass/Vol] 113 mg/dL High 74 - 99 mg/dL [facility] Interpretation and review of laboratory results Abnormal [facility] Glucose [Mass/Vol] 113 mg/dL High 74-99 [facility] Comment on above: Performed By: #### 5 7021-8 #### MELISA Galvan ([id number]) [facility] () [address] [place] [address] Glucose [Mass/Vol] 152 mg/dL High 74 - 99 mg/dL [facility] Interpretation and review of laboratory results Abnormal [facility] Glucose [Mass/Vol] 152 mg/dL High 74-99 [facility] Comment on above: Performed By: #### 2 4356-8 #### MELISA Galvan ([id number]) [facility] () [address] [place] [address] Magnesiumon 03-06-2023 Magnesium [Mass/Vol] 1.70 mg/dL 1.60 - 3.10 mg/dL [facility] Magnesium [Mass/Vol] 1.70 mg/dL Normal 1.60-3.10 [facility] Comment on above: Performed By: #### 2 4356-8 #### MELISA Galvan ([id number]) [facility] () [address] [place] [address] No Panel Informationon 03-06 Interpretation and review of laboratory results Normal [facility] Phosphateon 03-06-2023 Phosphate [Mass/Vol] 3.0 mg/dL Normal 2.5-4.5 [facility] Comment on above: Performed By: #### 2 4356-8 #### MELISA POOLESarwat Galvan ([id number]) [facility] (MW) [address] [place] [address] Phosphoruson 03-06-2023 Phosphate [Mass/Vol] 3.0 mg/dL 2.5 - 4.5 mg/dL [facility] XR CHEST 1 VIEWon 03-06-2023 XR CHEST 1 VIEW Interpreted By: Sara Zarate, STUDY: XR CHEST 1 VIEW; 03/06/2023 7:32 am INDICATION: Signs/Symptoms:post op COMPARISON: None ACCESSION NUMBER(S): [id number] ORDERING CLINICIAN: JASON FOSTER TECHNIQUE: Frontal and [...] Sara Zarate 03/06/2023 1:48 PM Dictation workstation: [id number] Normal [facility] XR Chest Single viewon 03-06 Appliance positioning as noted above. No consolidation. Signed by: Sara Zarate 03/06/2023 1:48 PM Dictation workstation: [id number] MMODAL Interpreted By: Sara Zarate, STUDY: XR CHEST 1 VIEW; 03/06/2023 7:32 am INDICATION: Signs/Symptoms:post op COMPARISON: None ACCESSION NUMBER(S): [id number] ORDERING CLINICIAN: JASON FOSTER TECHNIQUE: Frontal and lateral chest radiographs. FINDINGS: Enteric tube is seen with the tip overlying the expected location of the stomach. Right upper extremity PICC is seen with the tip overlying the distal SVC. The cardiomediastinal silhouette is unremarkable. The lungs are clear. No pleural effusion is identified. The osseous structures are intact. [facility] Sara Zarate MD - 03/06/2023 Interpreted By: Sara Zarate, STUDY: XR CHEST 1 VIEW; 03/06/2023 7:32 am INDICATION: Signs/Symptoms:post op COMPARISON: None ACCESSION NUMBER(S): [id number] ORDERING CLINICIAN: JASON FOSTER TECHNIQUE: Frontal and [...] Sara Zarate 03/06/2023 1:48 PM Dictation workstation: [id number] [facility] Work Phone: Radiology Study observation (narrative) [facility] Work Phone: XR Chest Single viewOrdered By: Sara Zartae on 03-06-2023 [facility] Work Phone: Basic metabolic 2000 panelon 03-05-2023 Anion gap [Moles/Vol] 13 mmol/L NINF - 19 mmol/L [facility] Calcium [Mass/Vol] 8.0 mg/dL Low 8.5 - 10.4 mg/dL [facility] Chloride [Moles/Vol] 107 mmol/L 97 - 107 mmol/L [facility] CO2 [Moles/Vol] 18 mmol/L Low 24 - 31 mmol/L [facility] Creatinine [Mass/Vol] 0.70 mg/dL 0.40 - 1.60 mg/dL [facility] eGFR - PINF [facility] Comment on above: Calculations of jessica mated GFR are performed using the 2020 CKD-EPI Study Refit equation without the race variable for the IDMS-Traceable creatinine methods. https://jasn.asnjournals.org/content//ASN.91382388 88 Glucose [Mass/Vol] 107 mg/dL High 65 - 99 mg/dL [facility] Interpretation and review of laboratory results Abnormal [facility] Potassium [Moles/Vol] 3.6 mmol/L 3.4 - 5.1 mmol/L [facility] Sodium [Moles/Vol] 138 mmol/L 133 - 145 mmol/L [facility] Urea nitrogen [Mass/Vol] 10 mg/dL 8 - 25 mg/dL [facility] Anion gap [Moles/Vol] 13 mmol/L Normal <=19 [facility] Comment on above: Performed By: #### 2 4356-8 #### MELISA Galvan (76025) [facility] () [address] [place] [address] Calcium [Mass/Vol] 8.0 mg/dL Low 8.5-10.4 [facility] Comment on above: Performed By: #### 2 4356-8 #### MELISA Galvan ([id number]) [facility] () [address] [place] [address] Chloride [Moles/Vol] 107 mmol/L Normal 97-107 [facility] Comment on above: Performed By: #### 2 4356-8 #### MELISA Galvan ([id number]) [facility] () [address] [place] [address] CO2 [Moles/Vol] 18 mmol/L Low 24-31 [facility] Comment on above: Performed By: #### 2 4356-8 #### MELISA Galvan ([id number]) [facility] () [address] [place] [address] Creatinine [Mass/Vol] 0.70 mg/dL Normal 0.40-1.60 [facility] Comment on above: Performed By: #### 2 4356-8 #### MELISA Galvan ([id number]) [facility] () [address] [place] [address] GFR/1.73 sq M.predicted MDRD (S/P/Bld) [Vol rate/Area] mL/min/{1.73_m2} Normal >60 [facility] Comment on above: Result Comment: Calc ulations of estimated GFR are performed using the 2020 CKD-EPI Study Refit equation without the race variable for the IDMS-Traceable creatinine methods. https://jasn.asnjournals.org/content//ASN.08550872 88 Performed By: #### 2 4356-8 #### MELISA Galvan ([id number]) [facility] () [address] [place] [address] Glucose [Mass/Vol] 107 mg/dL High 65-99 [facility] Comment on above: Performed By: #### 2 4356-8 #### MELISA Galvan ([id number]) [facility] () [address] [place] [address] Potassium [Moles/Vol] 3.6 mmol/L Normal 3.4-5.1 [facility] Comment on above: Performed By: #### 2 4356-8 #### MELISA Galvan (57574) [facility] () [address] [place] [address] Sodium [Moles/Vol] 138 mmol/L Normal 133-145 [facility] Comment on above: Performed By: #### 2 4356-8 #### MELISA Galvan (42504) [facility] () [address] [place] [address] Urea nitrogen [Mass/Vol] 10 mg/dL Normal 8-25 [facility] Comment on above: Performed By: #### 2 4356-8 #### MELISA Galvan ([id number]) [facility] () [address] [place] [address] CBC panel Auto (Bld)on 03-05 Erythrocyte distribution width (RBC) [Ratio] 12.6 % 11.5 - 14.5 % [facility] Hematocrit (Bld) [Volume fraction] 34.8 % Low 36.0 - 46.0 % [facility] Hemoglobin (Bld) [Mass/Vol] 11.9 g/dL Low 12.0 - 16.0 g/dL [facility] Interpretation and review of laboratory results Abnormal [facility] MCH (RBC) [Entitic mass] 31.2 pg 26.0 - 34.0 pg [facility] MCHC (RBC) [Mass/Vol] 34.2 g/dL 32.0 - 36.0 g/dL [facility] MCV (RBC) [Entitic vol] 91 fL 80 - 100 fL [facility] Nucleated RBC/100 WBC (Bld) [Ratio] 0.0 % [facility] Platelets (Bld) [#/Vol] 182 10*3/uL [facility] RBC (Bld) [#/Vol] 3.82 10*6/uL Low [facility] WBC (Bld) [#/Vol] 8.4 10*3/uL [facility] Erythrocyte distribution width (RBC) [Ratio] 12.6 % Normal 11.5-14.5 [facility] Comment on above: Performed By: #### 5 8410-2 #### MELISA Galvan (41563) [facility] () [address] [place] [address] Hematocrit (Bld) [Volume fraction] 34.8 % Low 36.0-46.0 [facility] Comment on above: Performed By: #### 5 8410-2 #### MELISA Galvan (77157) [facility] () [address] [place] [address] Hemoglobin (Bld) [Mass/Vol] 11.9 g/dL Low 12.0-16.0 [facility] Comment on above: Performed By: #### 5 8410-2 #### MELISA Galvan ([id number]) [facility] () [address] [place] [address] MCH (RBC) [Entitic mass] 31.2 pg Normal 26.0-34.0 [facility] Comment on above: Performed By: #### 5 8410-2 #### MELISA Galvan (75714) [facility] () [address] [place] [address] MCHC (RBC) [Mass/Vol] 34.2 g/dL Normal 32.0-36.0 [facility] Comment on above: Performed By: #### 5 8410-2 #### MELISA Galvan (25565) [facility] () [address] [place] [address] MCV (RBC) [Entitic vol] 91 fL Normal 80-100 [facility] Comment on above: Performed By: #### 5 8410-2 #### MELISA Galvan ([id number]) [facility] () [address] [place] [address] Nucleated RBC/100 WBC (Bld) [Ratio] 0.0 /100 WBCs Normal 0.0-0.0 [facility] Comment on above: Performed By: #### 5 8410-2 #### MELISA Galvan (73164) [facility] () [address] [place] [address] Platelets (Bld) [#/Vol] 182 x10*3/uL Normal 150-450 [facility] Comment on above: Performed By: #### 5 8410-2 #### MELISA Galvan (66603) [facility] () [address] [place] [address] RBC (Bld) [#/Vol] 3.82 x10*6/uL Low 4.00-5.20 [facility] Comment on above: Performed By: #### 5 8410-2 #### MELISA Galvan ([id number]) [facility] () [address] [place] [address] WBC (Bld) [#/Vol] 8.4 x10*3/uL Normal 4.4-11.3 [facility] Comment on above: Performed By: #### 5 8410-2 #### MELISA Galvan ([id number]) [facility] () [address] [place] [address] Glucose Test strip manual (B ld) [Mass/Vol]on 03-05-2023 Glucose [Mass/Vol] 176 mg/dL High 74 - 99 mg/dL [facility] Interpretation and review of laboratory results Abnormal [facility] Glucose [Mass/Vol] 176 mg/dL High 74-99 [facility] Comment on above: Performed By: #### 2 4356-8 #### MELISA Galvan ([id number]) [facility] () [address] [place] [address] Glucose [Mass/Vol] 177 mg/dL High 74 - 99 mg/dL [facility] Interpretation and review of laboratory results Abnormal [facility] Glucose [Mass/Vol] 177 mg/dL High 74-99 [facility] Comment on above: Performed By: #### 2 4356-8 #### MELISA Galvan (55850) [facility] () [address] [place] [address] Glucose [Mass/Vol] 111 mg/dL High 74 - 99 mg/dL [facility] Interpretation and review of laboratory results Abnormal [facility] Glucose [Mass/Vol] 111 mg/dL High 74-99 [facility] Comment on above: Performed By: #### 2 4356-8 #### MELISA Galvan ([id number]) [facility] () [address] [place] [address] Magnesiumon 03-05-2023 Magnesium [Mass/Vol] 1.70 mg/dL 1.60 - 3.10 mg/dL [facility] Magnesium [Mass/Vol] 1.70 mg/dL Normal 1.60-3.10 [facility] Comment on above: Performed By: #### 2 4356-8 #### MELISA Galvan ([id number]) [facility] () [address] [place] [address] No Panel Informationon 03-05 Interpretation and review of laboratory results Normal [facility] Phosphateon 03-05-2023 Phosphate [Mass/Vol] 4.3 mg/dL Normal 2.5-4.5 [facility] Comment on above: Performed By: #### 2 4356-8 #### MELISA Galvan (55251) [facility] () [address] [place] [address] Phosphoruson 03-05-2023 Phosphate [Mass/Vol] 4.3 mg/dL 2.5 - 4.5 mg/dL [facility] Surgical pathology studyon 0 03-05-2023 Surgical pathology study Pathology report.total SEE COMMENT Surgical Pathology Case: [id number] Authorizing Provider: Sherry Magaña MD Collected: 03/05/2023 1125 Ordering Location: [facility] Received: 03/05/2023 1314 Center OR Pathologist: Melisa [...] sectioned and entirely submitted in 1 cassette. 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] VERAB/VERIFY ABORHon 024 ABO group Nom (Bld) O Normal [facility] Comment on above: Performed By: #### V ERAB #### MELISA Galvan ([id number]) [facility] ([facility]) [address] [place] [address] US D Ag Ql (Bld) Positive [facility] Comment on above: Performed By: #### V ERAB #### MELISA Galvan ([id number]) [facility] ([facility]) [address] [place] [address] [place] XR CHEST 1 VIEWon 03-05-2023 XR CHEST 1 VIEW Interpreted By: Baldomero Hendrickson, STUDY: XR CHEST 1 VIEW; 03/05/2023 3:11 pm INDICATION: CLINICAL INFORMATION: Signs/Symptoms:NG tube placement confirmation. COMPARISON: 03/05/2019 at 745 hours ACCESSION NUMBER(S): [id number] ORDERING CLINICIAN: DESMOND TIRADO TECHNIQUE: Portable chest [...] Baldomero Hendrickson 03/05/2023 3:31 PM Dictation workstation: [id number] [facility] XR CHEST 1 VIEW Interpreted By: Nya Ahmadi, STUDY: XR CHEST 1 VIEW 03/05/2023 7:51 am INDICATION: Signs/Symptoms:conf irm line placement COMPARISON: None available. ACCESSION NUMBER(S): [id number] ORDERING CLINICIAN: SERENA GEORGE TECHNIQUE: AP erect view of the chest FINDINGS: Right arm PICC line terminates in the SVC. There is no pneumothorax. The heart, mediastinum, and lungs are normally visualized. IMPRESSION: Right arm PICC line terminating in SVC without pneumothorax. No acute cardiopulmonary disease. Signed by: Nya Ahmadi 03/05/2023 7:54 AM Dictation workstation: [id number] [facility] XR Chest Single viewon 03-05 1. Status post NG tube insertion with the tube extending into the left upper quadrant. 2. Stable appearance of the PICC line. 3. No infiltrates are identified. MACRO: none Signed by: Baldomero Hendrickson 03/05/2023 3:31 PM Dictation workstation: [id number] [facility] Interpreted By: Baldomero Hendrickson, STUDY: XR CHEST 1 VIEW; 03/05/2023 3:11 pm INDICATION: CLINICAL INFORMATION: Signs/Symptoms:NG tube placement confirmation. COMPARISON: 03/05/2019 at 745 hours ACCESSION NUMBER(S): [id number] ORDERING CLINICIAN: DESMOND TIRADO TECHNIQUE: Portable chest [...] COMPARISON: 03/05/2019 at 745 hours ACCESSION NUMBER(S): [id number] ORDERING CLINICIAN: DESMOND TIRADO TECHNIQUE: Portable chest [...] Baldomero Hendrickson 03/05/2023 3:31 PM Dictation workstation: [id number] [facility] Work Phone: Radiology Study observation (narrative) [facility] Work Phone: Right arm PICC line terminating in SVC without pneumothorax. No acute cardiopulmonary disease. Signed by: Nya Ahmadi 03/05/2023 7:54 AM Dictation workstation: [id number] MMODAL Interpreted By: Nya Ahmadi, STUDY: XR CHEST 1 VIEW 03/05/2023 7:51 am INDICATION: Signs/Symptoms:conf irm line placement COMPARISON: None available. ACCESSION NUMBER(S): [id number] ORDERING CLINICIAN: SERENA GEORGE TECHNIQUE: AP erect view of the chest FINDINGS: Right arm PICC line terminates in the SVC. There is no pneumothorax. The heart, mediastinum, and lungs are normally visualized. [facility] Nya Ahmadi MD - 03/05/2023 Interpreted By: Nya Ahmadi, STUDY: XR CHEST 1 VIEW 03/05/2023 7:51 am INDICATION: Signs/Symptoms:conf irm line placement COMPARISON: None available. ACCESSION NUMBER(S): [id number] ORDERING CLINICIAN: SERENA GEORGE TECHNIQUE: AP erect view of the chest FINDINGS: Right arm PICC line terminates in the SVC. There is no pneumothorax. The heart, mediastinum, and lungs are normally visualized. IMPRESSION: Right arm PICC line terminating in SVC without pneumothorax. No acute cardiopulmonary disease. Signed by: Nya Ahmadi 03/05/2023 7:54 AM Dictation workstation: [id number] [facility] Work Phone: Radiology Study observation (narrative) [facility] Work Phone: XR Chest Single viewOrdered By: Baldomero Hendrickson on 03-05-2023 [facility] Work Phone: XR Chest Single viewOrdered By: Nya Ahmadi on 03-05-2023 [facility] Work Phone: Basic metabolic 2000 panelon 03-02-2023 Anion gap [Moles/Vol] 14 mmol/L Normal <=19 [facility] Comment on above: Performed By: #### 2 4321-2 #### MELISA Galvan ([id number]) [facility] () [address] [place] [address] Calcium [Mass/Vol] 9.0 mg/dL Normal 8.5-10.4 [facility] Comment on above: Performed By: #### 2 4321-2 #### MELISA Galvan (87495) [facility] () [address] [place] [address] Chloride [Moles/Vol] 107 mmol/L Normal 97-107 [facility] Comment on above: Performed By: #### 2 4321-2 #### MELISA Galvan ([id number]) [facility] () [address] [place] [address] CO2 [Moles/Vol] 21 mmol/L Low 24-31 [facility] Comment on above: Performed By: #### 2 432-2 #### MELISA Galvan (05798) [facility] () [address] [place] [address] Creatinine [Mass/Vol] 0.80 mg/dL Normal 0.40-1.60 [facility] Comment on above: Performed By: #### 2 432-2 #### MELISA Galvan ([id number]) [facility] () [address] [place] [address] GFR/1.73 sq M.predicted MDRD (S/P/Bld) [Vol rate/Area] mL/min/{1.73_m2} Normal >60 [facility] Comment on above: Result Comment: Calc ulations of estimated GFR are performed using the 2020 CKD-EPI Study Refit equation without the race variable for the IDMS-Traceable creatinine methods. https://jasn.asnjournals.org/content//ASN.07525270 88 Performed By: #### 2 4321-2 #### MELISA Galvna ([id number]) [facility] () [address] [place] [address] Glucose [Mass/Vol] 68 mg/dL Normal 65-99 [facility] Comment on above: Performed By: #### 2 4321-2 #### MELISA Galvan (88249) [facility] () [address] [place] [address] Potassium [Moles/Vol] 4.0 mmol/L Normal 3.4-5.1 [facility] Comment on above: Performed By: #### 2 4321-2 #### MELISA Galvan (53031) [facility] () [address] [place] [address] Sodium [Moles/Vol] 142 mmol/L Normal 133-145 [facility] Comment on above: Performed By: #### 2 4321-2 #### MELISA Galvan (16290) [facility] () [address] [place] [address] Urea nitrogen [Mass/Vol] 8 mg/dL Normal 8-25 [facility] Comment on above: Performed By: #### 2 4321-2 #### MELISA Galvan (46925) [facility] () [address] [place] [address] Blood type and Indirect anti body screen panel (Bld)on 03-02-2023 ABO group Nom (Bld) O Normal [facility] Comment on above: Performed By: #### 3 4532-2 #### MELISA Galvan ([id number]) [facility] ([facility]) [address] [place] [address] [place] Blood group antibody screen Ql Negative [facility] Comment on above: Performed By: #### 3 4532-2 #### MELISA Galvan ([id number]) [facility] ([facility]) [address] [place] [address] US D Ag Ql (Bld) Positive [facility] Comment on above: Performed By: #### 3 4532-2 #### MELISA Galvan ([id number]) [facility] ([facility]) [address] [place] [address] [place] Staphylococcus aureus.methic illin resistant isolateon 03-02-2023 MRSA isol Org specific cx Ql (Nose) Test: Staphylococcus aureus/MRSA colonization, Culture Specimen Source: Anterior Nares Specimen Type: Swab Specimen Date: 03/02/2023 3:17 PM Result Date: 03/04/2023 7:55 AM Result Status: Final result Abnormal: No Resulting Lab: [facility] [address] [place] [address] CULTURE No Staphylococcus aureus isolated Normal [facility] Comment on above: Performed By: #### 5 2969-3 #### ALON Johnson ([id number]) [facility] ([facility]) [address] [place] [address] Alanine aminotransferase [En zymatic activity/volume] in Serum or PlasmaOrdered By: Roseline Mejia on 02-13-2023 ALT [Catalytic activity/Vol] 11 U/L Normal 7-52 [facility] Comment on above: Performed By: #### H EPATIC, MG, LIPASE, CMP, CBC #### [facility] [address] [place] [address] [place] Albumin [Mass/volume] in Ser um or Plasma by Bromocresol green (BCG) dye binding methoOrdered By: Roseline Mejia on 02-13-2023 Albumin BCG dye [Mass/Vol] 4.0 g/dL 3.5-5.7 [facility] Alkaline phosphatase [Enzyma tic activity/volume] in Serum or PlasmaOrdered By: Roseline Mejia on 02-13-2023 ALP [Catalytic activity/Vol] 55 U/L Normal 34-104 [facility] Comment on above: Performed By: #### H EPATIC, MG, LIPASE, CMP, CBC #### [facility] [address] [place] [address] [place] Aspartate aminotransferase [ Enzymatic activity/volume] in Serum or PlasmaOrdered By: Roseline Mejia on 02-13-2023 AST [Catalytic activity/Vol] 20 U/L Normal 13-39 [facility] Comment on above: Performed By: #### H EPATIC, MG, LIPASE, CMP, CBC #### [address] Automated basophil %Ordered By: Roseline Mejia on 02-13-2023 Basophils/100 WBC (Bld) 1.2 % Normal . [facility] Comment on above: Performed By: #### H EPATIC, MG, LIPASE, CMP, CBC #### [address] Automated basophil countOrde red By: Roseline Mejia on 02-13-2023 Basophils (Bld) [#/Vol] 0.1 10*3/uL Normal 0.0-0.2 [facility] Comment on above: Result Comment: PERF ORMED BY: [place] [address] PATHOLOGIST AUTO WINDER BAUTISTA BAKER M.D. Performed By: #### H EPATIC, MG, LIPASE, CMP, CBC #### [address] Automated blood monocyte cou ntOrdered By: Roseline Mejia on 02-13-2023 Monocytes (Bld) [#/Vol] 0.3 10*3/uL Normal 0.0-0.8 [facility] Comment on above: Performed By: #### H EPATIC, MG, LIPASE, CMP, CBC #### [address] Automated eosinophil %Ordere d By: Roseline Mejia on 02-13-2023 Eosinophils/100 WBC (Bld) 1.7 % Normal . [facility] Comment on above: Performed By: #### H EPATIC, MG, LIPASE, CMP, CBC #### [address] Automated eosinophil countOr dered By: Roseline Mejia on 02-13-2023 Eosinophils (Bld) [#/Vol] 0.1 10*3/uL Normal 0.0-0.45 [facility] Comment on above: Performed By: #### H EPATIC, MG, LIPASE, CMP, CBC #### [address] Automated monocyte %Ordered By: Roseline Mejia on 02-13-2023 Monocytes/100 WBC (Bld) 7.3 % Normal . [facility] Comment on above: Performed By: #### H EPATIC, MG, LIPASE, CMP, CBC #### [address] Automated neutrophil %Ordere d By: Roseline Mejia on 02-13-2023 Neutrophils/100 WBC (Bld) 49.0 % Normal . [facility] Comment on above: Performed By: #### H EPATIC, MG, LIPASE, CMP, CBC #### [address] Automated urine color determ inationOrdered By: Roseline Mejia on 02-13-2023 Color (U) Yellow Normal Yellow [facility] Comment on above: Order Comment: Name Collection Type:: Clean-Voided Midstream Performed By: #### A DDONUAPLUS, UHCG, CUU #### [address] Basic Metabolic Panelon 01-17 Creatinine Clr Calc Pharmacy 119.02 Normal [facility] Comment on above: Performed By: #### H EPATIC, MG, LIPASE, CMP, CBC #### [address] GFR/1.73 sq M.predicted MDRD (S/P/Bld) [Vol rate/Area] mL/min/{1.73_m2} Normal [facility] Comment on above: Performed By: #### H EPATIC, MG, LIPASE, CMP, CBC #### [address] Bilirubin Test strip Ql (U)O rdered By: Roseline Mejia on 02-13-2023 Bilirubin Ql (U) Negative Negative [facility] Bilirubin.direct [Mass/volum e] in Serum or PlasmaOrdered By: Roseline Mejia on 02-13-2023 Bilirubin.direct [Mass/Vol] 0.10 mg/dL 0.03-0.18 [facility] Bilirubin.total [Mass/volume ] in Serum or PlasmaOrdered By: Roseline Mejia on 02-13-2023 Bilirubin [Mass/Vol] 0.5 mg/dL Normal 0.3-1.0 [facility] Comment on above: Performed By: #### H EPATIC, MG, LIPASE, CMP, CBC #### [facility] [address] abdomen pelvis w conon CT abdomen pelvis w con [facility] [place] [address] [place] [address] CT Scan Report Signed Patient: Abbey Garcia MR#: [id number] : 1990 Acct:[id number] Age/Sex: 32 / F ADM Date: 02/13/23 Loc: ER Room: Type: [facility] ER Attending Dr: Copies to: DO [...] Jason Palomo M.D.02/13/2023 3:42 PM Dictation Location: [place] [address] Transcribed By: [facility] 02/13/23 1542 Dictated By: Jason Palomo DO 02/13/23 1537 Signed By: 02/13/23 1542 Normal [facility] Calcium [Mass/volume] in Ser um or PlasmaOrdered By: Roseline Mejia on 02-13-2023 Calcium [Mass/Vol] 8.8 mg/dL Normal 8.6-10.3 [facility] Comment on above: Performed By: #### H EPATIC, MG, LIPASE, CMP, CBC #### [address] Carbon dioxide, total [Moles /volume] in Serum or PlasmaOrdered By: Roseline Mejia on 02-13-2023 CO2 [Moles/Vol] 21.2 mmol/L Normal 21.0-31.0 [facility] Comment on above: Performed By: #### H EPATIC, MG, LIPASE, CMP, CBC #### [facility] [address] [place] [address] Chloride [Moles/volume] in S elder or PlasmaOrdered By: Roseline Mejia on 02-13-2023 Chloride [Moles/Vol] 109 mmol/L High 98-107 [facility] Comment on above: Performed By: #### H EPATIC, MG, LIPASE, CMP, CBC #### [facility] [address] [place] [address] Complete Blood Count Auto Di ffon 02-13-2023 Mean Corpuscular HGB Conc 34.9 g/dL Normal 32.0-35.0 [facility] Comment on above: Performed By: #### H EPATIC, MG, LIPASE, CMP, CBC #### [facility] [address] [place] [address] [place] Monocytes/100 WBC (Bld) 17.39 % Normal 0.00-20.00 [facility] Comment on above: Performed By: #### H EPATIC, MG, LIPASE, CMP, CBC #### [address] NRBC% 0.2 /100{WBC} Normal 0-0.5 [facility] Comment on above: Performed By: #### H EPATIC, MG, LIPASE, CMP, CBC #### [address] Creatinine [Mass/volume] in Serum or PlasmaOrdered By: Roseline Mejia on 02-13-2023 Creatinine [Mass/Vol] 0.73 mg/dL Normal 0.60-1.20 [facility] Comment on above: Performed By: #### H EPATIC, MG, LIPASE, CMP, CBC #### [address] Erythrocyte distribution wid th [Ratio] by Automated countOrdered By: Roseline Mejia on 02-13-2023 Erythrocyte distribution width (RBC) [Ratio] 13.0 % Normal 11.9-15.3 [facility] Comment on above: Performed By: #### H EPATIC, MG, LIPASE, CMP, CBC #### [address] Erythrocytes [#/volume] in B lood by Automated countOrdered By: Roseline Mejia on 02-13-2023 RBC (Bld) [#/Vol] 4.07 10*6/uL Normal 3.60-5.00 [facility] Comment on above: Performed By: #### H EPATIC, MG, LIPASE, CMP, CBC #### [address] Glucose [Mass/volume] in Ser um or PlasmaOrdered By: Roseline Mejia on 02-13-2023 Glucose [Mass/Vol] 85 mg/dL Normal 70-100 [facility] Comment on above: ADA recommended refe rence rangeRandom Glucose Reference Range is dependent on time and content of last meal. Glucose of more than 200 mg/dL in a nonstressed, ambulatory subject supports the diagnosis of Diabetes Mellitus. Result Comment: [facility] Glucose Reference Range is dependent on time and content of last meal. Glucose of more than 200 mg/dL in a nonstressed, ambulatory subject supports the diagnosis of Diabetes Mellitus. ADA recommended reference range Performed By: #### H EPATIC, MG, LIPASE, CMP, CBC #### [address] HCG ( test) IA.rapi d Ql (U)Ordered By: Roseline Mejia on 02-13-2023 HCG ( test) Ql (U) Negative [facility] HCG,Urineon 02-13-2023 Beta HCG ( test) Ql (U) Negative Normal [facility] Comment on above: Order Comment: Name Collection Type:: Clean-Voided Midstream Result Comment: PERF ORMED BY: [place] [address] PATHOLOGIST AUTO WINDER BAUTISTA BAKER M.D. Performed By: #### A DDONUAPLUS, CG, CUU #### [address] Hematocrit [Volume Fraction] of Blood by Automated countOrdered By: Roseline Mejia on 02-13-2023 Hematocrit (Bld) [Volume fraction] 36.3 % Normal 34.0-46.4 [facility] Comment on above: Performed By: #### H EPATIC, MG, LIPASE, CMP, CBC #### [address] Hemoglobin [Mass/volume] in BloodOrdered By: Roseline Mejia on 02-13-2023 Hemoglobin (Bld) [Mass/Vol] 12.7 g/dL Normal 11.8-15.4 [facility] Comment on above: Performed By: #### H EPATIC, MG, LIPASE, CMP, CBC #### [address] Hepatic Panelon 02-13-2023 Albumin [Mass/Vol] 4.0 g/dL Normal 3.5-5.7 [facility] Comment on above: Performed By: #### H EPATIC, MG, LIPASE, CMP, CBC #### [facility] [address] Bilirubin,Indirect 0.4 mg/dL Normal [facility] Comment on above: Performed By: #### H EPATIC, MG, LIPASE, CMP, CBC #### [facility] [address] Bilirubin.indirect [Mass/Vol] 0.10 mg/dL Normal 0.03-0.18 [facility] Comment on above: Performed By: #### H EPATIC, MG, LIPASE, CMP, CBC #### [facility] [address] Ketones Auto test strip (U) [Mass/Vol]Ordered By: Roseline Mejia on 02-13-2023 Ketones (U) [Mass/Vol] Trace Negative [facility] Leukocytes [#/volume] correc darvin for nucleated erythrocytes in Blood by Automated counOrdered By: Roseline Mejia on 02-13-2023 WBC corrected for nucl RBC Auto (Bld) [#/Vol] 4.2 10*3/uL 3.8-11.6 [facility] Leukocytes [#/volume] in Blo od by Automated countOrdered By: Roseline Mejia on 02-13-2023 WBC (Bld) [#/Vol] 4.2 10*3/uL Normal 3.8-11.6 [facility] Comment on above: Performed By: #### H EPATIC, MG, LIPASE, CMP, CBC #### [facility] [address] Lipase [Enzymatic activity/v olume] in Serum or PlasmaOrdered By: Roseline Mejia on 02-13-2023 Lipase [Catalytic activity/Vol] 42.0 U/L Normal 11.0-82.0 [facility] Comment on above: Result Comment: PERF ORMED BY: [address] [place] [address] PATHOLOGIST AUTO WINDER BAUTISTA BAKER M.D. Performed By: #### H EPATIC, MG, LIPASE, CMP, CBC #### [address] Lymphocytes [#/volume] in Bl ood by Automated countOrdered By: Roseline Mejia on 02-13-2023 Lymphocytes (Bld) [#/Vol] 1.7 10*3/uL Normal 1.00-4.8 [facility] Comment on above: Performed By: #### H EPATIC, MG, LIPASE, CMP, CBC #### [address] Lymphocytes/100 leukocytes i n Blood by Automated countOrdered By: Roseline Mejia on 02-13-2023 Lymphocytes/100 WBC (Bld) 40.8 % Normal . [facility] Comment on above: Performed By: #### H EPATIC, MG, LIPASE, CMP, CBC #### [address] MCH [Entitic mass] by Automa darvin countOrdered By: Roseline Mejia on 02-13-2023 MCH (RBC) [Entitic mass] 31.1 pg Normal 24.7-34.3 [facility] Comment on above: Performed By: #### H EPATIC, MG, LIPASE, CMP, CBC #### [address] MCHC Auto (RBC) [Mass/Vol]Or dered By: Roseline Mejia on 02-13-2023 MCHC (RBC) [Mass/Vol] 34.9 g/dL 32.0-35.0 [facility] MCV [Entitic volume] by Auto mated countOrdered By: Roseline Mejia on 02-13-2023 MCV (RBC) [Entitic vol] 89.2 fL Normal 80-100 [facility] Comment on above: Performed By: #### H EPATIC, MG, LIPASE, CMP, CBC #### [address] Monocyte distribution width [Entitic volume] in Blood by AutomatedOrdered By: Roseline Mejia on 02-13-2023 Monocyte distribution width Auto (Bld) [Entitic vol] 17.39 % 0.00-20.00 [facility] Neutrophils [#/volume] in Bl ood by Automated countOrdered By: Roseline Mejia on 02-13-2023 Neutrophils (Bld) [#/Vol] 2.0 10*3/uL Normal 1.8-7.7 [facility] Comment on above: Performed By: #### H EPATIC, MG, LIPASE, CMP, CBC #### [facility] [address] Nitrite Test strip Ql (U)Ord ered By: Roseline Mejia on 02-13-2023 Nitrite Ql (U) Negative Negative [facility] No Panel InformationOrdered By: Roseline Mejia on 02-13-2023 Estimated GFR (CKD-EPI) > 60.0 mL/Min [facility] Creatinine Clearance (Chem 119.02 [facility] Nucleated erythrocytes [Pres ence] in Blood by Automated countOrdered By: Roseline Mejia on 02-13-2023 Nucleated RBC Auto Ql (Bld) 0.2 /100{WBC} 0-0.5 [facility] Platelet mean volume [Entiti c volume] in Blood by Automated countOrdered By: Roseline Mejia on 02-13-2023 Platelet mean volume (Bld) [Entitic vol] 8.8 fL Normal 6.3-10.7 [facility] Comment on above: Performed By: #### H EPATIC, MG, LIPASE, CMP, CBC #### [facility] [address] [place] [address] [place] Platelets [#/volume] in Bloo d by Automated countOrdered By: Roseline Mejia on 02-13-2023 Platelets (Bld) [#/Vol] 288 10*3/uL Normal 150-450 [facility] Comment on above: Performed By: #### H EPATIC, MG, LIPASE, CMP, CBC #### [facility] [address] [place] [address] [place] Potassium [Moles/volume] in Serum or PlasmaOrdered By: Roseline Mejia on 02-13-2023 Potassium [Moles/Vol] 3.7 mmol/L Normal 3.5-5.1 [facility] Comment on above: Performed By: #### H EPATIC, MG, LIPASE, CMP, CBC #### [address] Protein Auto test strip (U) [Mass/Vol]Ordered By: Roseline Mejia on 02-13-2023 Protein (U) [Mass/Vol] Negative Negative [facility] Protein [Mass/volume] in Ser um or PlasmaOrdered By: Roseline Mejia on 02-13-2023 Protein [Mass/Vol] 6.9 g/dL Normal 6.4-8.9 [facility] Comment on above: Performed By: #### H EPATIC, MG, LIPASE, CMP, CBC #### [address] Serum globulin measurement b y calculation (mass/volume)Ordered By: Roseline Mejia on 02-13-2023 Globulin (S) [Mass/Vol] 2.9 g/dL Normal [facility] Comment on above: Performed By: #### H EPATIC, MG, LIPASE, CMP, CBC #### [address] Serum or plasma albumin/glob ulin mass ratioOrdered By: Roseline Mejia on 02-13-2023 Albumin/Globulin [Mass ratio] 1.4 {ratio} [facility] Comment on above: Performed By: #### H EPATIC, MG, LIPASE, CMP, CBC #### [address] Serum or plasma anion gap de terminationOrdered By: Roseline Mejia on 02-13-2023 Anion gap [Moles/Vol] 10.5 mmol/L Normal 6.0-15.0 [facility] Comment on above: Performed By: #### H EPATIC, MG, LIPASE, CMP, CBC #### [facility] [address] Serum or plasma non-glucuron idated bilirubin measurement (mass/volume)Ordered By: Roseline Mejia on 02-13-2023 Bilirubin.indirect [Mass/Vol] 0.4 mg/dL [facility] Sodium [Moles/volume] in Ser um or PlasmaOrdered By: Roseline Mejia on 02-13-2023 Sodium [Moles/Vol] 137 mmol/L Normal 136-145 [facility] Comment on above: Performed By: #### H EPATIC, MG, LIPASE, CMP, CBC #### [address] Specific gravity Auto test s trip (U) [Rel density]Ordered By: Roseline Mejia on 02-13-2023 Specific gravity (U) [Rel density] 1.017 1.001-1.030 [facility] Urea nitrogen [Mass/volume] in Serum or PlasmaOrdered By: Roseline Mejia on 02-13-2023 Urea nitrogen [Mass/Vol] 10 mg/dL Normal 7-25 [facility] Comment on above: Performed By: #### H EPATIC, MG, LIPASE, CMP, CBC #### [address] Urinalysison 02-13-2023 Appearance (U) Clear Normal Clear [facility] Comment on above: Order Comment: Name Collection Type:: Clean-Voided Midstream Performed By: #### A DDONUAPLUS, UHCG, CUU #### [address] Bilirubin,Urine Negative Normal Negative [facility] Comment on above: Order Comment: Name Collection Type:: Clean-Voided Midstream Performed By: #### A DDONUAPLUS, UHCG, CUU #### [address] Glucose Ql (U) Normal Normal Normal [facility] Comment on above: Order Comment: Name Collection Type:: Clean-Voided Midstream Performed By: #### A DDONUAPLUS, UHCG, CUU #### [place] [address] [place] Ketones Ql (U) Trace High Negative [facility] Comment on above: Order Comment: Name Collection Type:: Clean-Voided Midstream Performed By: #### A DDONUAPLUS, UHCG, CUU #### [address] Leukocyte esterase Test strip Ql (U) Negative Normal Negative [facility] Comment on above: Order Comment: Name Collection Type:: Clean-Voided Midstream Performed By: #### A DDONUAPLUS, UHCG, CUU #### [place] [address] [place] Nitrite,Urine Negative Normal Negative [facility] Comment on above: Order Comment: Name Collection Type:: Clean-Voided Midstream Performed By: #### A DDONUAPLUS, UHCG, CUU #### [place] [address] [place] Occult Blood,Urine Negative Normal Negative [facility] Comment on above: Order Comment: Name Collection Type:: Clean-Voided Midstream Performed By: #### A DDONUAPLUS, UHCG, CUU #### [place] [address] [place] Protein,Urine Negative Normal Negative [facility] Comment on above: Order Comment: Name Collection Type:: Clean-Voided Midstream Performed By: #### A DDONUAPLUS, UHCG, CUU #### [place] [address] [place] Specificy [place],Urine 1.017 Normal 1.001-1.030 [facility] Comment on above: Order Comment: Name Collection Type:: Clean-Voided Midstream Performed By: #### A DDONUAPLUS, UHCG, CUU #### [place] [address] [place] Urobilinogen,Urine Normal Normal Normal [facility] Comment on above: Order Comment: Name Collection Type:: Clean-Voided Midstream Performed By: #### A CORY[facility], [facility] #### [facility] [address] Urine clarity by refractomet ry automatedOrdered By: Roseline Mejia on 02-13-2023 Clarity Refractometry automated (U) Clear Clear [facility] Urine glucose measurement by automated test strip (mass/volume)Ordered By: Roseline Mejia on 02-13-2023 Glucose Auto test strip (U) [Mass/Vol] Normal mg/dL Normal [facility] Urine hemoglobin detection b y automated test stripOrdered By: Roseline Mejia on 02-13-2023 Hemoglobin Auto test strip Ql (U) Negative Negative [facility] Urine leukocyte esterase det ection by automated test stripOrdered By: Roseline Mejia on 02-13-2023 Leukocyte esterase Auto test strip Ql (U) Negative Negative [facility] Urine pH measurement by auto mated test stripOrdered By: Roseline Mejia on 02-13-2023 pH (U) 5.5 [pH] Normal 5.0-9.0 [facility] Comment on above: Order Comment: Name Collection Type:: Clean-Voided Midstream Performed By: #### A [facility]ORY[facility], [facility] #### [facility] [address] [place] [address] Urobilinogen Auto test strip (U) [Mass/Vol]Ordered By: Roseline Mejia on 02-13-2023 Urobilinogen (U) [Mass/Vol] Normal mg/dL Normal [facility] CBC W Auto Differential pane l (Bld)on 02-12-2023 Basophils (Bld) [#/Vol] 0.02 x10*3/uL Normal 0.00-0.10 [facility] Comment on above: Performed By: #### 5 7021-8 #### OUMAR BRICEÑO ([id number]) [facility] ([facility]) [address] [place] [address] Basophils/100 WBC (Bld) 0.5 % Normal 0.0-2.0 [facility] Comment on above: Performed By: #### 5 7021-8 #### OUMAR BRICEÑO ([id number]) [facility] ([facility]) [address] [place] [address] Eosinophils (Bld) [#/Vol] 0.06 x10*3/uL Normal 0.00-0.70 [facility] Comment on above: Performed By: #### 5 7021-8 #### OUMAR BRICEÑO ([id number]) [facility] ([facility]) [address] [place] [address] Eosinophils/100 WBC (Bld) 1.4 % Normal 0.0-6.0 [facility] Comment on above: Performed By: #### 5 7021-8 #### OUMAR BRICEÑO ([id number]) [facility] ([facility]) [address] [place] [address] Erythrocyte distribution width (RBC) [Ratio] 12.1 % Normal 11.5-14.5 [facility] Comment on above: Performed By: #### 5 7021-8 #### OUMAR BRICEÑO ([id number]) [facility] ([facility]) [address] [place] [address] Hematocrit (Bld) [Volume fraction] 37.9 % Normal 36.0-46.0 [facility] Comment on above: Performed By: #### 5 7021-8 #### OUMAR BRICEÑO ([id number]) [facility] ([facility]) [id number] [place] [address] Hemoglobin (Bld) [Mass/Vol] 12.8 g/dL Normal 12.0-16.0 [facility] Comment on above: Performed By: #### 5 7021-8 #### OUMAR BRICEÑO ([id number]) [facility] ([facility]) [address] [place] [address] Immature granulocytes (Bld) [#/Vol] 0.01 x10*3/uL Normal 0.00-0.70 [facility] Comment on above: Performed By: #### 5 7021-8 #### OUMAR BRICEÑO ([id number]) [facility] ([facility]) [address] [place] [address] Immature granulocytes/100 WBC (Bld) 0.2 % Normal 0.0-0.9 [facility] Comment on above: Result Comment: Janny ture Granulocyte Count (IG) includes promyelocytes, myelocytes and metamyelocytes but does not include bands. Percent differential counts (%) should be interpreted in the context of the absolute cell counts (cells/UL). Performed By: #### 5 7021-8 #### OUMAR BRICEÑO ([id number]) [facility] ([facility]) [address] [place] [address] Lymphocytes (Bld) [#/Vol] 1.63 x10*3/uL Normal 1.20-4.80 [facility] Comment on above: Performed By: #### 5 7021-8 #### OUMAR BRICEÑO ([id number]) [facility] ([facility]) [address] [place] [address] Lymphocytes/100 WBC (Bld) 38.9 % Normal 13.0-44.0 [facility] Comment on above: Performed By: #### 5 7021-8 #### OUMAR BRICEÑO ([id number]) [facility] ([facility]) [address] [place] [address] MCH (RBC) [Entitic mass] 30.5 pg Normal 26.0-34.0 [facility] Comment on above: Performed By: #### 5 7021-8 #### OUMAR BRICEÑO (72026) [facility] ([facility]) [address] [place] [address] MCHC (RBC) [Mass/Vol] 33.8 g/dL Normal 32.0-36.0 [facility] Comment on above: Performed By: #### 5 7021-8 #### OUMAR BRICEÑO ([id number]) [facility] ([facility]) [address] [place] [address] MCV (RBC) [Entitic vol] 91 fL Normal 80-100 [facility] Comment on above: Performed By: #### 5 7021-8 #### OUMAR BRCIEÑO ([id number]) [facility] ([facility]) [address] [place] [address] Monocytes (Bld) [#/Vol] 0.26 x10*3/uL Normal 0.10-1.00 [facility] Comment on above: Performed By: #### 5 7021-8 #### OUMAR BRICEÑO ([id number]) [facility] ([facility]) [id number] [place] [address] Monocytes/100 WBC (Bld) 6.2 % Normal 2.0-10.0 [facility] Comment on above: Performed By: #### 5 7021-8 #### OUMAR BRICEÑO ([id number]) [facility] ([facility]) [id number] [place] [address] Neutrophils (Bld) [#/Vol] 2.21 x10*3/uL Normal 1.20-7.70 [facility] Comment on above: Result Comment: Perc ent differential counts (%) should be interpreted in the context of the absolute cell counts (cells/uL). Performed By: #### 5 7021-8 #### OUMAR BRICEÑO ([id number]) [facility] ([facility]) [id number] [place] [address] Neutrophils/100 WBC (Bld) 52.8 % Normal 40.0-80.0 [facility] Comment on above: Performed By: #### 5 7021-8 #### OUMAR BRICEÑO ([id number]) [facility] ([facility]) [address] [place] [address] Nucleated RBC/100 WBC (Bld) [Ratio] 0.0 /100 WBCs Normal 0.0-0.0 [facility] Comment on above: Performed By: #### 5 7021-8 #### OUMAR BRICEÑO ([id number]) [facility] ([facility]) [address] [place] [address] Platelets (Bld) [#/Vol] 291 x10*3/uL Normal 150-450 [facility] Comment on above: Performed By: #### 5 7021-8 #### OUMAR BRICEÑO ([id number]) [facility] ([facility]) [address] [place] [address] RBC (Bld) [#/Vol] 4.19 x10*6/uL Normal 4.00-5.20 [facility] Comment on above: Performed By: #### 5 7021-8 #### OUMAR BRICEÑO ([id number]) [facility] ([facility]) [address] [place] [address] WBC (Bld) [#/Vol] 4.2 x10*3/uL Low 4.4-11.3 [facility] Comment on above: Performed By: #### 5 7021-8 #### OUMAR BRICEÑO ([id number]) [facility] ([facility]) [address] [place] [address] Comprehensive metabolic 2000 panelon 02-12-2023 Albumin BCP dye [Mass/Vol] 4.2 g/dL Normal 3.4-5.0 [facility] Comment on above: Performed By: #### 2 4323-8 #### OUMAR BRICEÑO ([id number]) [facility] ([facility]) [address] [place] [address] ALP [Catalytic activity/Vol] 55 U/L Normal 33-110 [facility] Comment on above: Performed By: #### 2 4323-8 #### OUMAR BRICEÑO ([id number]) [facility] ([facility]) [address] [place] [address] ALT With P-5'-P [Catalytic activity/Vol] 13 U/L Normal 7-45 [facility] Comment on above: Result Comment: Umm ents treated with Sulfasalazine may generate falsely decreased results for ALT. Performed By: #### 2 4323-8 #### OUMAR BRICEÑO ([id number]) [facility] ([facility]) [address] [place] [address] Anion gap [Moles/Vol] 13 mmol/L Normal 10-20 [facility] Comment on above: Performed By: #### 2 4323-8 #### OUMAR BRICEÑO ([id number]) [facility] ([facility]) [id number] [place] [address] AST With P-5'-P [Catalytic activity/Vol] 21 U/L Normal 9-39 [facility] Comment on above: Performed By: #### 2 432-8 #### OUMAR BRICEÑO ([id number]) [facility] ([facility]) [id number] [place] [address] Bilirubin [Mass/Vol] 0.5 mg/dL Normal 0.0-1.2 [facility] Comment on above: Performed By: #### 2 4323-8 #### OUMAR BRICEÑO ([id number]) [facility] ([facility]) [id number] [place] [address] Calcium [Mass/Vol] 8.9 mg/dL Normal 8.6-10.3 [facility] Comment on above: Performed By: #### 2 4323-8 #### OUMAR BRICEÑO ([id number]) [facility] ([facility]) [id number] [place] [address] Chloride [Moles/Vol] 107 mmol/L Normal 98-107 [facility] Comment on above: Performed By: #### 2 4323-8 #### OUMAR BRICEÑO ([id number]) [facility] ([facility]) [address] [place] [address] CO2 [Moles/Vol] 23 mmol/L Normal 21-32 [facility] Comment on above: Performed By: #### 2 4323-8 #### OUMAR BRICEÑO ([id number]) [facility] ([facility]) [address] [place] [address] Creatinine [Mass/Vol] 0.73 mg/dL Normal 0.50-1.05 [facility] Comment on above: Performed By: #### 2 4323-8 #### OUMAR BRICEÑO ([id number]) [facility] ([facility]) [address] [place] [address] GFR/1.73 sq M.predicted MDRD (S/P/Bld) [Vol rate/Area] mL/min/{1.73_m2} Normal >60 [facility] Comment on above: Result Comment: Calc ulations of estimated GFR are performed using the 2020 CKD-EPI Study Refit equation without the race variable for the IDMS-Traceable creatinine methods. https://jasn.asnjournals.org/content/early/ASN.18155182 88 Performed By: #### 2 4323-8 #### OUMAR BRICEÑO ([id number]) [facility] ([facility]) [address] [place] [address] Glucose [Mass/Vol] 84 mg/dL Normal 74-99 [facility] Comment on above: Performed By: #### 2 4323-8 #### OUMAR BRICEÑO ([id number]) [facility] ([facility]) [address] [place] [address] Potassium [Moles/Vol] 3.6 mmol/L Normal 3.5-5.3 [facility] Comment on above: Performed By: #### 2 4323-8 #### OUMAR BRICEÑO (19155) [facility] ([facility]) [address] [place] [address] Protein [Mass/Vol] 7.0 g/dL Normal 6.4-8.2 [facility] Comment on above: Performed By: #### 2 4323-8 #### OUMAR BRICEÑO (77887) [facility] ([facility] [place]) [address] [place] [address] Sodium [Moles/Vol] 139 mmol/L Normal 136-145 [facility] Comment on above: Performed By: #### 2 4323-8 #### OUMAR BRICEÑO (45132) [facility] ([facility]) [address] [place] [address] Urea nitrogen [Mass/Vol] 9 mg/dL Normal 6-23 [facility] Comment on above: Performed By: #### 2 4323-8 #### OUMAR BRICEÑO (85386) [facility] ([facility]) [address] [place] [address] Lactateon 02-12-2023 Lactate [Moles/Vol] 0.6 mmol/L Normal 0.4-2.0 [facility] Comment on above: Order Comment: Venip uncture immediately after or during the administration of Metamizole may lead to falsely low results. Testing should be performed immediately prior to Metamizole dosing. Performed By: #### 2 524-7 #### OUMAR BRICEÑO (00691) [facility] ([facility]) [address] [place] [address] Triacylglycerol lipaseon Lipase [Catalytic activity/Vol] 43 U/L Normal 9-82 [facility] Comment on above: Order Comment: Venip uncture immediately after or during the administration of Metamizole may lead to falsely low results. Testing should be performed immediately prior to Metamizole dosing. Performed By: #### 3 040-3 #### OUMAR BRICEÑO ([id number]) [facility] ([facility]) [address] [place] [address] Urinalysis complete panel (U )on 02-12-2023 Appearance (U) Clear Normal Clear [facility] Comment on above: Performed By: #### 2 4356-8 #### OUMAR BRICEÑO (88405) [facility] ([facility]) [address] [place] [address] Bilirubin (U) [Mass/Vol] Negative Normal NEGATIVE [facility] Comment on above: Performed By: #### 2 4356-8 #### OUMAR BRICEÑO (80768) [facility] ([facility]) [address] [place] [address] Color (U) Yellow Normal Straw, Yellow [facility] Comment on above: Performed By: #### 2 4356-8 #### OUMAR BRICEÑO ([id number]) [facility] ([facility] [place]) [address] [place] [address] Glucose Auto test strip (U) [Mass/Vol] Negative Normal NEGATIVE [facility] Comment on above: Performed By: #### 2 4356-8 #### OUMAR BRICEÑO (52762) [facility] ([facility] [place]) [address] [place] [address] Ketones (U) [Mass/Vol] Negative Normal NEGATIVE [facility] Comment on above: Performed By: #### 2 4356-8 #### OUMAR BRICEÑO (51286) [facility] ([facility]) [address] [place] [address] Leukocyte esterase Auto test strip Ql (U) Negative Normal NEGATIVE [facility] Comment on above: Performed By: #### 2 4356-8 #### OUMAR BRICEÑO (79312) [facility] ([facility]) [address] [place] [address] Nitrite Auto test strip Ql (U) Negative Normal NEGATIVE [facility] Comment on above: Performed By: #### 2 4356-8 #### OUMAR BRICEÑO (55663) [facility] ([facility] [place]) [address] [place] [address] pH (U) 6.0 [pH] Normal 5.0, 5.5, 6.0, 6.5, 7.0, 7.5, 8.0 [facility] Comment on above: Performed By: #### 2 4356-8 #### OUMAR BRICEÑO (75802) [facility] ([facility]) [address] [place] [address] Protein (U) [Mass/Vol] Negative Normal NEGATIVE [facility] Comment on above: Performed By: #### 2 4356-8 #### OUMAR BRICEÑO (74881) [facility] ([facility] [place]) [address] [place] [address] RBC (U) [#/Vol] Negative Normal NEGATIVE [facility] Comment on above: Performed By: #### 2 4356-8 #### OUMAR BRICEÑO (30130) [facility] ([facility]) [address] [place] [address] Specific gravity (U) [Rel density] 1.021 Normal 1.005-1.035 [facility] Comment on above: Performed By: #### 2 4356-8 #### OUMAR BRICEÑO (10654) [facility] ([facility]) [address] [place] [address] Urobilinogen (U) [Mass/Vol] mg/dL Normal <2.0 [facility] Comment on above: Performed By: #### 2 4356-8 #### OUMAR BRICEÑO ([id number]) [facility] ([facility]) [address] [place] [address] CNPNon 02-11-2023 CNPN Normal [facility] HISTORY PHYSICALon HISTORY PHYSICAL HNO ID: [id number] Author: Vic Ramos MD Service: Pain Management [...] DATE: February 10, 2023 TIME: 2:00 PM [facility] HISTORY PHYSICAL HNO ID: [id number] Author: Anam Carter APRN.BLASTING MACHINE OPERATOR Service: General Internal Medicine Author Type: Nurse Practitioner Type: HANDP Filed: 02/10/2023 2:04 PM Note Text: Abbey Garcia returns to [facility] for the treatment [...] syndrome Plan: Block celiac plexus Anam Carter APRN.[facility] OPERATIVE NOon 02-10-2023 OPERATIVE NO HNO ID: [id number] Author: Vic Ramos MD Service: Pain Management Author Type: Anesthesiologist Type: Operative Report Filed: 02/10/2023 2:41 PM Note Text: [facility] Pre-Procedure Note Patient Name: Abbey Garcia SUBJECTIVE: Abbey Garcia is a 32 year old female who presents to [facility]. This is her 1st. Patient denies any contraindications to the procedure including . 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 OBJECTIVE: BP 121/74 [...] procedure. Vic Ramos MD February 10, 2023 [facility] Post-Procedure Note Patient name: [...] February 10, 2023 day of surgery Normal [facility] Family Medicine Office/Clini c Noteon 02-03-2023 [facility] Medicine Office/Clinic Note Normal [facility] Comment on above: Result Comment: Elec tronically Signed By: Jaquan Paula\.br\Date and Time Signed: 02/03/23 15:18 EST CNPNon 01-15-2023 CNPN Normal [facility] VASC US MESENTERIC ARTERY DU PLEX COMPLETEon 01-14-2023 VASC US MESENTERIC ARTERY DUPLEX COMPLETE [facility] [address] [place], [place] [address] Vascular Lab Report [facility] US MESENTERIC ARTERY DUPLEX COMPLETE Patient Name: ABBEY PHIPPS Reading Physician: [id number] Boggs MD, DORA Study Date: 01/14/2023 Ordering Provider: [id number] SHERRY MAGAÑA MRN/PID: [id number] Fellow: Technologist: Anam Mc RVT Date of /Age: 2 1990 / years Technologist 2: Gender: F Admission Status: Outpatient Location Performed: [facility] 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 History of gastric bypass with revision. [...] PSV 116 cm/s Splenic PSV 77 cm/s [id number] Boggs MD, DORA Final Normal [facility] CBC W Auto Differential pane l (Bld)on 01-13-2023 Basophils (Bld) [#/Vol] 0.04 x10*3/uL Normal 0.00-0.10 [facility] Comment on above: Performed By: #### 5 7021-8 #### MELISA Galvan (19412) [facility] () [address] [place] [address] Basophils/100 WBC (Bld) 0.7 % Normal 0.0-2.0 [facility] Comment on above: Performed By: #### 5 7021-8 #### MELISA Galvan (18065) [facility] () [address] [place] [address] Eosinophils (Bld) [#/Vol] 0.13 x10*3/uL Normal 0.00-0.70 [facility] Comment on above: Performed By: #### 5 7021-8 #### MELISA Galvan (17905) [facility] () [address] [place] [address] Eosinophils/100 WBC (Bld) 2.2 % Normal 0.0-6.0 [facility] Comment on above: Performed By: #### 5 7021-8 #### MELISA Galvan (19574) [facility] () [address] [place] [address] Erythrocyte distribution width (RBC) [Ratio] 12.4 % Normal 11.5-14.5 [facility] Comment on above: Performed By: #### 5 7021-8 #### MELISA Galvan (73248) [facility] () [address] [place] [address] Hematocrit (Bld) [Volume fraction] 36.6 % Normal 36.0-46.0 [facility] Comment on above: Performed By: #### 5 7021-8 #### MELISA Galvan (08170) [facility] () [address] [place] [address] Hemoglobin (Bld) [Mass/Vol] 12.6 g/dL Normal 12.0-16.0 [facility] Comment on above: Performed By: #### 5 7021-8 #### MELISA Galvan (48967) [facility] () [address] [place] [address] Immature granulocytes (Bld) [#/Vol] 0.01 x10*3/uL Normal 0.00-0.70 [facility] Comment on above: Performed By: #### 5 7021-8 #### MELISA Galvan (63697) [facility] () [address] [place] [address] Immature granulocytes/100 WBC (Bld) 0.2 % Normal 0.0-0.9 [facility] Comment on above: Result Comment: Janny ture Granulocyte Count (IG) includes promyelocytes, myelocytes and metamyelocytes but does not include bands. Percent differential counts (%) should be interpreted in the context of the absolute cell counts (cells/UL). Performed By: #### 5 7021-8 #### MELISA Galvan (93087) [facility] () [address] [place] [address] Lymphocytes (Bld) [#/Vol] 2.26 x10*3/uL Normal 1.20-4.80 [facility] Comment on above: Performed By: #### 5 7021-8 #### MELISA Galvan (77401) [facility] () [address] [place] [address] Lymphocytes/100 WBC (Bld) 39.0 % Normal 13.0-44.0 [facility] Comment on above: Performed By: #### 5 7021-8 #### MELISA Galvan (93163) [facility] () [address] [place] [address] MCH (RBC) [Entitic mass] 30.7 pg Normal 26.0-34.0 [facility] Comment on above: Performed By: #### 5 7021-8 #### MELISA Galvan (67132) [facility] () [address] [place] [address] MCHC (RBC) [Mass/Vol] 34.4 g/dL Normal 32.0-36.0 [facility] Comment on above: Performed By: #### 5 7021-8 #### MELISA Galvan (57316) [facility] () [address] [place] [address] MCV (RBC) [Entitic vol] 89 fL Normal 80-100 [facility] Comment on above: Performed By: #### 5 7021-8 #### MELISA Galvan (41569) [facility] () [address] [place] [address] Monocytes (Bld) [#/Vol] 0.41 x10*3/uL Normal 0.10-1.00 [facility] Comment on above: Performed By: #### 5 7021-8 #### MELISA Galvan (16891) [facility] () [address] [place] [address] Monocytes/100 WBC (Bld) 7.1 % Normal 2.0-10.0 [facility] Comment on above: Performed By: #### 5 7021-8 #### MELISA Galvan (47532) [facility] () [address] [place] [address] Neutrophils (Bld) [#/Vol] 2.95 x10*3/uL Normal 1.20-7.70 [facility] Comment on above: Result Comment: Perc ent differential counts (%) should be interpreted in the context of the absolute cell counts (cells/uL). Performed By: #### 5 7021-8 #### MELISA Galvan (34923) [facility] () [address] [place] [address] Neutrophils/100 WBC (Bld) 50.8 % Normal 40.0-80.0 [facility] Comment on above: Performed By: #### 5 7021-8 #### MELISA Galvan (89161) [facility] () [address] [place] [address] Nucleated RBC/100 WBC (Bld) [Ratio] 0.0 /100 WBCs Normal 0.0-0.0 [facility] Comment on above: Performed By: #### 5 7021-8 #### MELISA Galvan (12410) [facility] () [address] [place] [address] Platelets (Bld) [#/Vol] 222 x10*3/uL Normal 150-450 [facility] Comment on above: Performed By: #### 5 7021-8 #### MELISA Galvan (87276) [facility] () [address] [place] [address] RBC (Bld) [#/Vol] 4.11 x10*6/uL Normal 4.00-5.20 [facility] Comment on above: Performed By: #### 5 7021-8 #### MELISA Galvan (34880) [facility] () [address] [place] [address] WBC (Bld) [#/Vol] 5.8 x10*3/uL Normal 4.4-11.3 [facility] Comment on above: Performed By: #### 5 7021-8 #### MELISA Galvan (78090) [facility] () [address] [place] [address] Comprehensive metabolic 2000 panelon 01-13-2023 Albumin [Mass/Vol] 4.2 g/dL Normal 3.5-5.0 [facility] Comment on above: Performed By: #### 2 4323-8 #### MELISA Galvan (78685) [facility] () [address] [place] [address] ALP (Bld) [Catalytic activity/Vol] 74 U/L Normal 35-125 [facility] Comment on above: Performed By: #### 2 4323-8 #### MELISA Galvan (86712) [facility] () [address] [place] [address] ALT [Catalytic activity/Vol] 15 U/L Normal 5-40 [facility] Comment on above: Performed By: #### 2 4323-8 #### MELISA Galvan (10852) [facility] () [address] [place] [address] Anion gap [Moles/Vol] 10 mmol/L Normal <=19 [facility] Comment on above: Performed By: #### 2 4323-8 #### MELISA Galvan (49888) [facility] () [address] [place] [address] AST [Catalytic activity/Vol] 26 U/L Normal 5-40 [facility] Comment on above: Performed By: #### 2 432-8 #### MELISA Galvan (45958) [facility] () [address] [place] [address] Bilirubin [Mass/Vol] 0.5 mg/dL Normal 0.1-1.2 [facility] Comment on above: Performed By: #### 2 4323-8 #### MELISA Galvan (96080) [facility] () [address] [place] [address] Calcium [Mass/Vol] 9.1 mg/dL Normal 8.5-10.4 [facility] Comment on above: Performed By: #### 2 4323-8 #### MELISA Galvan (49183) [facility] () [address] [place] [address] Chloride [Moles/Vol] 103 mmol/L Normal 97-107 [facility] Comment on above: Performed By: #### 2 4323-8 #### MELISA Galvan (75529) [facility] () [address] [place] [address] CO2 [Moles/Vol] 23 mmol/L Low 24-31 [facility] Comment on above: Performed By: #### 2 4323-8 #### MELISA Galvan (09176) [facility] () [address] [place] [address] Creatinine [Mass/Vol] 0.70 mg/dL Normal 0.40-1.60 [facility] Comment on above: Performed By: #### 2 4323-8 #### MELISA Galvan (38068) [facility] () [address] [place] [address] GFR/1.73 sq M.predicted MDRD (S/P/Bld) [Vol rate/Area] mL/min/{1.73_m2} Normal >60 [facility] Comment on above: Result Comment: Calc ulations of estimated GFR are performed using the 2020 CKD-EPI Study Refit equation without the race variable for the IDMS-Traceable creatinine methods. https://jasn.asnjournals.org/content/early//ASN.98092587 88 Performed By: #### 2 4323-8 #### MELISA Galvan (62522) [facility] () [address] [place] [address] Glucose [Mass/Vol] 89 mg/dL Normal 65-99 [facility] Comment on above: Performed By: #### 2 4323-8 #### MELISA Galvan (82577) [facility] () [address] [place] [address] Potassium [Moles/Vol] 3.5 mmol/L Normal 3.4-5.1 [facility] Comment on above: Performed By: #### 2 4323-8 #### MELISA Galvan (98459) [facility] () [address] [place] [address] Protein [Mass/Vol] 6.9 g/dL Normal 5.9-7.9 [facility] Comment on above: Performed By: #### 2 4323-8 #### MELISA Galvan (18404) [facility] () [address] [place] [address] Sodium [Moles/Vol] 136 mmol/L Normal 133-145 [facility] Comment on above: Performed By: #### 2 4323-8 #### MELISA Galvan (82886) [facility] () [address] [place] [address] Urea nitrogen [Mass/Vol] 13 mg/dL Normal - [facility] Comment on above: Performed By: #### 2 4323-8 #### MELISA Galvan (12019) [facility] () [address] [place] [address] HCG ( test) IA.rapi d Ql (U)on 01-13-2023 HCG ( test) Ql (U) Negative Normal NEGATIVE [facility] Comment on above: Performed By: #### 8 0384-1 #### MELISA Galvan (66126) [facility] () [address] [place] [address] Urinalysis complete panel (U )on 01-13-2023 Appearance (U) Clear Normal Clear [facility] Comment on above: Performed By: #### 2 4356-8 #### MELISA Galvan (71071) [facility] () [address] [place] [address] Bilirubin (U) [Mass/Vol] Negative Normal NEGATIVE [facility] Comment on above: Performed By: #### 2 4356-8 #### MELISA Galvan (62335) [facility] () [address] [place] [address] Color (U) Light-Yellow Normal Light-Yellow, Yellow, Dark-Yellow [facility] Comment on above: Performed By: #### 2 4356-8 #### MELISA Galvan (05476) [facility] () [address] [place] [address] Glucose Auto test strip (U) [Mass/Vol] Normal Normal Normal [facility] Comment on above: Performed By: #### 2 4356-8 #### MELISA Galvan (81308) [facility] () [address] [place] [address] Ketones (U) [Mass/Vol] Negative Normal NEGATIVE [facility] Comment on above: Performed By: #### 2 4356-8 #### MELISA Galvan (54813) [facility] () [address] [place] [address] Leukocyte esterase Auto test strip Ql (U) Negative Normal NEGATIVE [facility] Comment on above: Performed By: #### 2 4356-8 #### MELISA Galvan (22341) [facility] () [address] [place] [address] Nitrite Auto test strip Ql (U) Negative Normal NEGATIVE [facility] Comment on above: Performed By: #### 2 4356-8 #### MELISA Galvan (84499) [facility] () [address] [place] [address] pH (U) 7.0 [pH] Normal 5.0, 5.5, 6.0, 6.5, 7.0, 7.5, 8.0 [facility] Comment on above: Performed By: #### 2 4356-8 #### MELISA Galvan (69955) [facility] () [address] [place] [address] Protein (U) [Mass/Vol] Negative Normal NEGATIVE, 10 (TRACE), 20 (TRACE) [facility] Comment on above: Performed By: #### 2 4356-8 #### MELISA Galvan (49975) [facility] () [address] [place] [address] RBC (U) [#/Vol] Negative Normal NEGATIVE [facility] Comment on above: Performed By: #### 2 4356-8 #### MELISA Galvan (63856) [facility] () [address] [place] [address] Specific gravity (U) [Rel density] 1.010 Normal 1.005-1.035 [facility] Comment on above: Performed By: #### 2 4356-8 #### MELISA Galvan (76553) [facility] () [address] [place] [address] Urobilinogen (U) [Mass/Vol] Normal Normal Normal [facility] Comment on above: Performed By: #### 2 4356-8 #### MELISA MC Mandy (64063) [facility] () [address] [place] [address] CNPNon 01-11-2023 CNPN Normal [facility] CNPNon 01-06-2023 CNPN Normal [facility] Auto Diffon 12-31-2022 Basophils/100 WBC (Bld) 0.6 % Normal 0.0-2.0 [facility] Comment on above: Order Comment: Order Added by Discern Expert. Performed By: #### 2 631739, 3979931, 56269202, 1373549, 5611802, 16815285, 6909500 ####[facility] [address] [place] [address] Basophils/Leukocyte s Auto (Bld) [Pure # fraction] 0.0 E9/L Normal 0.0-0.2 [facility] Comment on above: Order Comment: Order Added by Discern Expert. Performed By: #### 2 792651, 6463140, 77096941, 8741578, 4020179, 00592011, 4280917 ####[facility] [address] [place] [address] Eosinophils/100 WBC (Bld) 0.4 % Normal 0.0-8.0 [facility] Comment on above: Order Comment: Order Added by Discern Expert. Performed By: #### 2 024314, 3359779, 24774832, 1493832, 3507114, 16055118, 9545452 ####[facility] [address] [place] [address] Eosinophils/Leukocy stevan Auto (Bld) [Pure # fraction] 0.0 E9/L Normal 0.0-0.5 [facility] Comment on above: Order Comment: Order Added by Discern Expert. Performed By: #### 2 398261, 2828981, 85826423, 0240087, 2833792, 71448245, 6342685 ####[address] [place] [address] Lymphocytes/100 WBC (Bld) 42.3 % Normal 14.0-50.0 [facility] Comment on above: Order Comment: Order Added by Discern Expert. Performed By: #### 2 622014, 4919421, 41933943, 2261997, 0868704, 89653657, 4149392 ####[address] [place] [address] Lymphocytes/Leukocy stevna Auto (Bld) [Pure # fraction] 1.9 E9/L Normal 1.0-4.0 [facility] Comment on above: Order Comment: Order Added by Discern Expert. Performed By: #### 2 860529, 2889885, 18716639, 2521880, 3089562, 59685199, 6498827 ####[address] [address] Monocytes/100 WBC (Bld) 7.9 % Normal 4.0-14.0 [facility] Comment on above: Order Comment: Order Added by Discern Expert. Performed By: #### 2 278133, 1593303, 59049734, 1409550, 8823839, 69828468, 4861722 ####[address] [place] [address] Monocytes/Leukocyte s Auto (Bld) [Pure # fraction] 0.4 E9/L Normal 0.2-1.0 [facility] Comment on above: Order Comment: Order Added by Discern Expert. Performed By: #### 2 371656, 3038012, 18827198, 0386809, 0494801, 99857114, 0875571 ####[address] [place] [address] Neutrophils/100 WBC (Bld) 48.8 % Normal 36.0-75.0 [facility] Comment on above: Order Comment: Order Added by Discern Expert. Performed By: #### 2 522478, 7203280, 74162750, 1942358, 4710199, 79033967, 3966132 ####[facility] [address] [place] [address] Neutrophils/Leukocy stevan Auto (Bld) [Pure # fraction] 2.2 E9/L Normal 2.0-7.5 [facility] Comment on above: Order Comment: Order Added by Discern Expert. Performed By: #### 2 483466, 9197089, 76069160, 1743196, 9687995, 47927003, 9188055 ####[facility] [address] [place] [address] B hCG Qualon 12-31-2022 Beta HCG ( test) Ql Negative Normal [facility] Comment on above: Performed By: #### 2 951650, 0189459, 13655768, 5030614, 3657249, 59710223, 5098267 ####[facility] [address] [place] [address] BMPon 12-31-2022 Creatinine [Mass/Vol] 0.8 mg/dL Normal 0.5-1.3 [facility] Comment on above: Performed By: #### 2 548550, 5090907, 67750799, 2645749, 2029532, 67212805, 0898929 ####[facility] [address] [place] [address] Urea nitrogen [Mass/Vol] 16 mg/dL Normal 5-21 [facility] Comment on above: Performed By: #### 2 523890, 6834031, 19515676, 3924615, 6799310, 41945325, 9944063 ####[facility] [address] [place] [address] Urea nitrogen/Creatinine [Mass ratio] 20 No Units Normal 10-20 [facility] Comment on above: Performed By: #### 2 063828, 6329732, 62458131, 1193268, 2700179, 88070834, 9402995 ####[facility] [address] [place] [address] Anion gap [Moles/Vol] 10 mmol/L Normal 6-16 [facility] Comment on above: Performed By: #### 2 775015, 2391900, 92563301, 3168592, 8766714, 40171494, 8556842 ####[facility] [address] [place] [address] Calcium [Mass/Vol] 8.6 mg/dL Low 8.9-11.1 [facility] Comment on above: Performed By: #### 2 972715, 5473036, 53911177, 2153803, 0343197, 57088377, 7902307 ####[facility] [address] [place] [address] Chloride [Moles/Vol] 110 mmol/L Normal 101-111 [facility] Comment on above: Performed By: #### 2 401739, 4381998, 78171676, 0028733, 3277722, 31808273, 6782765 ####[facility] [address] [place] [address] CO2 [Moles/Vol] 20 mmol/L Low 21-31 [facility] Comment on above: Performed By: #### 2 941155, 4987605, 01448287, 0434699, 3060464, 17382650, 7094530 ####[facility] [address] [place] [address] Glucose [Mass/Vol] 87 mg/dL Normal 55-199 [facility] Comment on above: Result Comment: If t his glucose result represents a fasting glucose, interpretation should refer to the following reference range: 55-99 mg/dL Performed By: #### 2 878792, 2169496, 14399718, 5550737, 3992108, 47902844, 1088263 ####[facility] [address] [place] [address] Potassium [Moles/Vol] 3.2 mmol/L Low 3.5-5.3 [facility] Comment on above: Performed By: #### 2 577668, 4737152, 00133662, 3010297, 0275799, 29742768, 4783272 ####[facility] [address] [place] [address] Sodium [Moles/Vol] 137 mmol/L Normal 135-145 [facility] Comment on above: Performed By: #### 2 725346, 1723473, 26691764, 8143296, 9768683, 61894211, 6486089 ####[address] [place] [address] CBC w/ Auto Diffon 3 Erythrocyte distribution width (RBC) [Ratio] 13.9 % Normal 10.9-14.2 [facility] Comment on above: Performed By: #### 2 815168, 3468921, 73257616, 8139856, 1097422, 82104534, 9580950 ####[address] [address] Hematocrit (Bld) [Volume fraction] 35.5 % Normal 34.0-46.0 [facility] Comment on above: Performed By: #### 2 359080, 2572071, 70478650, 9159570, 5029917, 52189402, 5408859 ####[address] [address] Hemoglobin (Bld) [Mass/Vol] 12.2 g/dL Normal 12.0-16.0 [facility] Comment on above: Performed By: #### 2 230243, 0188715, 60764920, 4484434, 0635551, 41520844, 1704238 ####[facility] [address] [place] [address] MCH (RBC) [Entitic mass] 30.8 pg Normal 27.0-34.0 [facility] Comment on above: Performed By: #### 2 899072, 4137227, 89612217, 9278886, 0976297, 17108717, 3388630 ####[address] [address] MCHC (RBC) [Mass/Vol] 34.4 g/dL Normal 31.4-36.0 [facility] Comment on above: Performed By: #### 2 433790, 6868344, 92293622, 5351338, 6599485, 56022163, 0303060 ####[facility] [address] [place] [address] MCV (RBC) [Entitic vol] 89.5 fL Normal 80.0-100.0 [facility] Comment on above: Performed By: #### 2 706383, 7834496, 17527219, 6777964, 2451971, 90485000, 9306307 ####[address] [place] [address] Platelet mean volume (Bld) [Entitic vol] 9.5 fL Normal 6.4-10.8 [facility] Comment on above: Performed By: #### 2 469128, 5644568, 09269072, 1741691, 8292320, 95089403, 1593627 ####[address] [address] Platelets (Bld) [#/Vol] 177.0 E9/L Normal 150.0-500.0 [facility] Comment on above: Performed By: #### 2 549929, 7776201, 40638586, 3160168, 1237172, 19223960, 9132657 ####[address] [address] RBC (Bld) [#/Vol] 4.0 E12/L Low 4.3-5.9 [facility] Comment on above: Performed By: #### 2 543905, 2669771, 89701620, 5107639, 1229605, 58531499, 6756825 ####[address] [address] WBC corrected for nucl RBC Auto (Bld) [#/Vol] 4.4 E9/L Normal 4.0-11.0 [facility] Comment on above: Performed By: #### 2 721253, 0647368, 32215352, 3410004, 6009887, 75863095, 0703622 ####[facility] [address] [place] CHEMISTRYOrdered By: SYSTEM SYSTEM on 12-31-2022 Albumin [...] rate/Area] 100 mL/min/1.73 m2 Normal >=59mL/min/1.73 m2 [facility] S Comment on above: Interpretive Data: C hronic kidney disease could be indicated at eGFR's of less than 60 mL/min/1.73m2. Kidney failure is indicated at less than 15 mL/min/1.73m2. Globulin (S) [Mass/Vol] 2.9 g/dL Normal 1.4 - 4.0 gm/dL [facility] Remisol Glucose [Mass/Vol] 87 mg/dL Normal 55 - 199 mg/dL [facility] Remisol Comment on above: Interpretive Data: I f this glucose result represents a fasting glucose, interpretation should refer to the following reference range: 55-99 mg/dL Lipase [Catalytic activity/Vol] 49 U/L Normal 13 - 58 unit/L [facility] Remisol Potassium [Moles/Vol] 3.2 mmol/L Low 3.5 - 5.3 mmol/L [facility] Remisol Protein [Mass/Vol] 6.8 g/dL Normal 6.0 - 7.8 gm/dL [facility] Remisol Sodium [Moles/Vol] 137 mmol/L Normal 135 - 145 mmol/L [facility] Remisol Urea nitrogen [Mass/Vol] 16 mg/dL Normal 5 - 21 mg/dL [facility] Remisol Urea nitrogen/Creatinine [Mass ratio] 20 mg/mg Normal 10 - 20 [facility] Remisol Consent for Treatmenton 12-16 Consent for Treatment [id number] Normal [facility] Discharge Instructionson Discharge Instructions [id number]#1.00TIFF Normal [facility] ED Clinical Summaryon 2022 ED Clinical Summary Normal [facility] ED Note-Physicianon 01-01-20 ED Note-Physician Normal [facility] Comment on above: Result Comment: Elec tronically Signed By: Lonnie Rios PA-C\.br\Date and Time Signed: 12/31/22 19:15 EST\.br\Electronically Co-Signed By: Mateusz Garcia DO\.br\Date and Time Co-Signed: 12/31/22 19:25 EST ED Patient Education Noteon 12-31-2022 ED Patient Education Note Normal [facility] ED Patient Summaryon 023 ED Patient Summary Normal [facility] HEMATOLOGYOrdered By: SYSTEM SYSTEM on 12-31-2022 Basophils/100 [...] 89.5 fL Normal 80.0 - 100.0 fL FT HemeAutoSS Platelet mean volume (Bld) [Entitic vol] 9.5 fL Normal 6.4 - 10.8 fL [facility] HemeAutoSS Platelets (Bld) [#/Vol] 177.0 E9/L Normal 150.0 - 500.0 E9/L [facility] HemeAutoSS RBC (Bld) [#/Vol] 4.0 E12/L Low 4.3 - 5.9 E12/L FT [facility]eAuto[facility] WBC corrected for nucl RBC Auto (Bld) [#/Vol] 4.4 E9/L Normal 4.0 - 11.0 E9/L [facility] HemeAutoSS Hep Func Panelon 12-31-2022 Albumin [Mass/Vol] 3.9 g/dL Normal 3.3-5.0 [facility] Comment on above: Performed By: #### 2 880166, 4982020, 54227990, 7140584, 6766409, 95934202, 7634610 ####[facility] [address] [place] [address] Albumin/Globulin (S) [Mass conc ratio] 1.3 Normal 1.1-2.2 [facility] Comment on above: Performed By: #### 2 520104, 6710030, 72522404, 8234255, 5480253, 79128993, 4627775 ####[facility] [address] [place] [address] ALP [Catalytic activity/Vol] 51 Int._Unit/L Normal 21-98 [facility] Comment on above: Performed By: #### 2 607891, 5550556, 96144286, 1096846, 0628668, 00367885, 2446903 ####[facility] [address] [place] [address] ALT No additional P-5'-P [Catalytic activity/Vol] 21 Int._Unit/L Normal 6-46 [facility] Comment on above: Performed By: #### 2 970222, 3363409, 26852492, 3735285, 1115917, 30335976, 4093325 ####[facility] [address] [place] [address] AST [Catalytic activity/Vol] 32 Int._Unit/L Normal 5-43 [facility] Comment on above: Performed By: #### 2 681121, 3059265, 53303291, 7206443, 1779250, 77183398, 8617230 ####[facility] [address] [place] [address] Bilirubin [Mass/Vol] 0.5 mg/dL Normal 0.0-1.1 [facility] Comment on above: Performed By: #### 2 554116, 8410247, 54606883, 6648356, 3430324, 62630532, 9272925 ####[facility] [address] [place] [address] Bilirubin.direct [Mass/Vol] 0.1 mg/dL Normal 0.1-0.4 [facility] Comment on above: Performed By: #### 2 043788, 1204099, 37014675, 3690197, 2621324, 63627557, 5597415 ####[facility] [address] [place] [address] Bilirubin.indirect [Mass or moles/Vol] 0.4 mg/dL Normal 0.1-0.9 [facility] Comment on above: Performed By: #### 2 753810, 8472862, 00620921, 0615282, 8987951, 04231665, 8711810 ####[facility] [address] [place] [address] Globulin (S) [Mass/Vol] 2.9 g/dL Normal 1.4-4.0 [facility] Comment on above: Performed By: #### 2 165059, 3570614, 71149603, 8461552, 7214556, 32497407, 8995809 ####[facility] [address] [place] [address] Protein [Mass/Vol] 6.8 g/dL Normal 6.0-7.8 [facility] Comment on above: Performed By: #### 2 563810, 2500442, 12463280, 3552954, 2017771, 72071225, 4307326 ####[facility] [address] [place] [address] Lipase Levelon 12-31-2022 Lipase [Catalytic activity/Vol] 49 U/L Normal 13-58 [facility] Comment on above: Performed By: #### 2 206574, 4357698, 12490931, 3278483, 4226581, 63394400, 3041489 ####[facility] [address] [place] [address] SEROLOGYOrdered By: Stacia Blair on 12-31-2022 Beta HCG ( test) Ql Negative (12/31/22 1:16 PM) Normal [facility] Man Sero UA With Cult Reflexon 2022 Bilirubin Ql (U) Negative Normal Negative [facility] Comment on above: Performed By: #### 1 6748623 ####[facility] [address] [place] [address] Clarity (U) CLEAR Normal Clear [facility] Comment on above: Performed By: #### 1 6704127 ####[facility] [address] [place] [address] Color (U) YELLOW Normal Yellow [facility] Comment on above: Performed By: #### 1 8327059 ####[facility] [address] [place] [address] Epithelial cells.squamous LM.HPF (Urine sed) [#/Area] 0-2 Normal 0-2 [facility] Comment on above: Performed By: #### 1 6236738 ####[facility] [address] [place] [address] Glucose Test strip (U) [Mass/Vol] Negative Normal Negative [facility] Comment on above: Performed By: #### 1 2846700 ####[facility] [address] [place] [address] Hemoglobin Ql (U) Negative Normal Negative [facility] Comment on above: Performed By: #### 1 2464691 ####[facility] [address] [place] [address] Ketones (U) [Mass/Vol] Negative Normal Negative [facility] Comment on above: Performed By: #### 1 9806286 ####[address] [address] Pettibone.plasma/Lith ium.RBC (Bld) [Mass ratio] 0-3 Normal 0-3 [facility] Comment on above: Performed By: #### 1 7946360 ####[address] [address] Mucus Ql (Urine sed) TRACE Normal [facility] Comment on above: Performed By: #### 1 6918667 ####[address] [address] Nitrite Ql (U) Negative Normal Negative [facility] Comment on above: Performed By: #### 1 8569484 ####[address] [address] pH (U) 6.0 [pH] Invalid Interpretation Code 5.0-9.0 [facility] Comment on above: Performed By: #### 1 3134430 ####[address] [address] Protein (U) [Mass/Vol] Negative Normal Negative [facility] Comment on above: Performed By: #### 1 4275628 ####[address] [address] Specific gravity (U) [Rel density] 1.015 Invalid Interpretation Code 1.005-1.030 [facility] Comment on above: Performed By: #### 1 9235143 ####[address] [address] Type of Urine collection method Clean Catch Normal [facility] Comment on above: Performed By: #### 1 9189899 ####[address] [address] Urobilinogen Qn (U) 0.2 {Munir'U}/dL Normal 0.0-1.0 [facility] Comment on above: Performed By: #### 1 9929768 ####[facility] [address] [place] [address] WBC Auto Ql (U) Negative Normal Negative [facility] Comment on above: Performed By: #### 1 0739562 ####[facility] [address] [place] [address] WBC LM.HPF (Urine sed) [#/Area] 0-5 Normal 0-5 [facility] Comment on above: Performed By: #### 1 8935210 ####[facility] [address] [place] [address] URINALYSISOrdered By: Marlene Blair on 12-31-2022 Bilirubin [...] PM) Normal Negative [facility] UA Auto SS Pettibone.plasma/Lith ium.RBC (Bld) [Mass ratio] 0-3 /HPF Normal [...] [Mass/Vol] Negative (12/31/22 1:16 PM) Normal Negative [facility] UA Auto SS Specific gravity (U) [Rel density] 1.015 *NA* (12/31/22 1:16 PM) Invalid Interpretation Code 1.005 - 1.030 [facility] UA Auto SS UA Spec Desc Clean Catch (12/31/22 1:16 PM) Normal [facility] UA Auto SS Urobilinogen Qn (U) 0.1233094 {Munir'U}/dL Normal 0.0 - 1.0 EU/dL [facility] UA Auto SS WBC Auto Ql (U) Negative (12/31/22 1:16 PM) Normal Negative [facility] UA Auto SS WBC LM.HPF (Urine sed) [#/Area] 0-5 /HPF Normal 0-5/HPF [facility] UA Auto SS eGFRon 12-31-2022 GFR/1.73 sq M.predicted among non-blacks MDRD (S/P/Bld) [Vol rate/Area] 100 mL/min/1.73 m2 Normal >=59 [facility] Comment on above: Order Comment: Order added by Discern Expert. Result Comment: Product Accountant alejandra kidney disease could be indicated at eGFR's of less than 60 mL/min/1.73m2. Kidney failure is indicated at less than 15 mL/min/1.73m2. Performed By: #### 2 941402, 5960458, 79814829, 8916939, 2558050, 43237109, 8921097 ####[facility] [address] [place] [address] Family Medicine Office/Clini c Noteon 12-29-2022 [facility] Medicine Office/Clinic Note Normal [facility] Comment on above: Result Comment: Elec tronically Signed By: Jaquan Paula\.rene\Date and Time Signed: 12/29/22 15:35 EST Provider Letteron 12-29-2022 Provider Letter Normal [facility] CNCOon 12-28-2022 CNCO Letter Text Normal [facility] CNPNon 12-28-2022 CNPN Normal [facility] CNCOon 12-25-2022 CNCO Letter Text Normal [facility] CNPNon 12-23-2022 CNPN Normal [facility] CBC With Platelet and Differ entialon 12-14-2022 Basophils (Bld) [#/Vol] 0.0 10*3/uL Normal 0.0-0.2 [facility] Comment on above: Performed By: #### L IPAS #### [facility] [address] [place] [address] Basophils/100 WBC (Bld) 0.9 % Normal [facility] Comment on above: Performed By: #### L IPAS #### [facility] [address] [place] [address] Eosinophils (Bld) [#/Vol] 0.2 10*3/uL Normal 0.0-0.7 [facility] Comment on above: Performed By: #### L IPAS #### [facility] [address] [place] [address] Eosinophils/100 WBC (Bld) 4.0 % Normal [facility] Comment on above: Performed By: #### L IPAS #### [facility] [address] [place] [address] Erythrocyte distribution width (RBC) [Ratio] 13.2 % Normal 11.5-14.5 [facility] Comment on above: Performed By: #### L IPAS #### [facility] [address] [place] [address] Hematocrit (Bld) [Volume fraction] 36.5 % Low 37.0-47.0 [facility] Comment on above: Performed By: #### L IPAS #### [facility] [address] [place] [address] Hemoglobin (Bld) [Mass/Vol] 12.4 g/dL Normal 12.0-16.0 [facility] Comment on above: Performed By: #### L IPAS #### [facility] [address] [place] [address] Lymphocytes (Bld) [#/Vol] 1.7 10*3/uL Normal 1.0-4.8 [facility] Comment on above: Performed By: #### L IPAS #### [facility] [address] [place] [address] Lymphocytes/100 WBC (Bld) 40.7 % Normal [facility] Comment on above: Performed By: #### L IPAS #### [facility] [address] [place] [address] MCH (RBC) [Entitic mass] 31.0 pg Normal 27.0-31.3 [facility] Comment on above: Performed By: #### L IPAS #### [facility] [address] [place] [address] MCHC 34.0 % Normal 33.0-37.0 [facility] Comment on above: Performed By: #### L IPAS #### [facility] [address] [place] [address] MCV (RBC) [Entitic vol] 91.3 fL Normal 79.4-94.8 [facility] Comment on above: Performed By: #### L IPAS #### [facility] [address] [place] [address] Monocytes (Bld) [#/Vol] 0.3 10*3/uL Normal 0.2-0.8 [facility] Comment on above: Performed By: #### L IPAS #### [facility] [address] [place] [address] Monocytes/100 WBC (Bld) 7.7 % Normal [facility] Comment on above: Performed By: #### L IPAS #### [facility] [address] [place] [address] Neutrophils (Bld) [#/Vol] 2.0 10*3/uL Normal 1.4-6.5 [facility] Comment on above: Performed By: #### L IPAS #### [facility] [address] [place] [address] Neutrophils/100 WBC (Bld) 46.5 % Normal [facility] Comment on above: Performed By: #### L IPAS #### [facility] [address] [place] [address] Platelets (Bld) [#/Vol] 187 10*3/uL Normal 130-400 [facility] Comment on above: Performed By: #### L IPAS #### [facility] [address] [place] [address] RBC (Bld) [#/Vol] 4.00 10*6/uL Low 4.20-5.40 [facility] Comment on above: Performed By: #### L IPAS #### [facility] [address] [place] [address] WBC (Bld) [#/Vol] 4.3 10*3/uL Low 4.8-10.8 [facility] Comment on above: Performed By: #### L IPAS #### [facility] [address] [place] [address] CTA ABDOMEN PELVIS W WO CONT RASTon [...] Addison Lorenzo MD 12/14/22 Final result Normal [facility] Comprehensive Metabolic Pane nestor 12-14-2022 Albumin [Mass/Vol] 4.0 g/dL Normal 3.5-4.6 [facility] Comment on above: Performed By: #### L IPAS #### [facility] [address] [place] [address] ALP [Catalytic activity/Vol] 70 U/L Normal 40-130 [facility] Comment on above: Performed By: #### L IPAS #### [facility] [address] [place] [address] ALT [Catalytic activity/Vol] 20 U/L Normal 0-33 [facility] Comment on above: Performed By: #### L IPAS #### [facility] [address] [place] [address] Anion gap [Moles/Vol] 16 mmol/L Critically high 9-15 [facility] Comment on above: Performed By: #### L IPAS #### [facility] [address] [place] [address] AST [Catalytic activity/Vol] 33 U/L Normal 0-35 [facility] Comment on above: Performed By: #### L IPAS #### [facility] [address] [place] [address] Bilirubin [Mass/Vol] 0.3 mg/dL Normal 0.2-0.7 [facility] Comment on above: Performed By: #### L IPAS #### [facility] [address] [place] [address] Calcium [Mass/Vol] 8.8 mg/dL Normal 8.5-9.9 [facility] Comment on above: Performed By: #### L IPAS #### [facility] [address] [place] [address] Chloride [Moles/Vol] 107 mmol/L Normal 95-107 [facility] Comment on above: Performed By: #### L IPAS #### [facility] [address] [place] [address] CO2 [Moles/Vol] 20 mmol/L Normal 20-31 [facility] Comment on above: Performed By: #### L IPAS #### [facility] [address] [place] [address] Creatinine [Mass/Vol] 0.75 mg/dL Normal 0.50-0.90 [facility] Comment on above: Performed By: #### L IPAS #### [facility] [address] [place] [address] GFR >60.0 Normal >60 [facility] Comment on above: Result Comment: Pedi [...] secretion. Performed By: #### L IPAS #### [facility] [address] [place] [address] Globulin (S) [Mass/Vol] 2.5 g/dL Normal 2.3-3.5 [facility] Comment on above: Performed By: #### L IPAS #### [facility] [address] [place] [address] Glucose [Mass/Vol] 88 mg/dL Normal 70-99 [facility] Comment on above: Performed By: #### L IPAS #### [facility] [address] [place] [address] Potassium [Moles/Vol] 3.8 mmol/L Normal 3.4-4.9 [facility] Comment on above: Performed By: #### L IPAS #### [facility] [address] [place] [address] Protein [Mass/Vol] 6.5 g/dL Normal 6.3-8.0 [facility] Comment on above: Performed By: #### L IPAS #### [facility] [address] [place] [address] Sodium [Moles/Vol] 143 mmol/L Normal 135-144 [facility] Comment on above: Performed By: #### L IPAS #### [facility] [address] [place] [address] Urea nitrogen [Mass/Vol] 11 mg/dL Normal 6-20 [facility] Comment on above: Performed By: #### L IPAS #### [facility] [address] [place] [address] Lipaseon 12-14-2022 Lipase [Catalytic activity/Vol] 39 U/L Normal 12-95 [facility] Comment on above: Performed By: #### L IPAS #### [facility] [address] [place] [address] POCT Venouson 12-14-2022 Creatinine [Mass/Vol] 0.8 mg/dL Normal 0.6-1.2 [facility] Comment on above: Performed By: #### P GLU #### [facility] [address] [place] [address] GFR >60 Normal >60 [facility] Comment on above: Result Comment: Adán [...] secretion. Performed By: #### P GLU #### [facility] [address] [place] [address] POC Performed on SEE BELOW Normal [facility] Comment on above: Result Comment: Perf ormed on POC Performed By: #### P GLU #### [facility] [address] [place] [address] POC Sample Type KIRA Normal [facility] Comment on above: Performed By: #### P GLU #### [facility] [address] [place] [address] CNCOon 12-10-2022 CNCO Letter Text Normal [facility] ALLIED HEALTHon 12-09-2022 ALLIED HEALTH Normal [facility] CASE MANAGEMon 12-09-2022 CASE MANAGEM Normal [facility] CBC panel Auto (Bld)on 12-09 Erythrocyte distribution width (RBC) [Ratio] 13.5 % Normal 11.5-15.0 [facility] Comment on above: Order Comment: Speci men Type: BLOOD SPECIMENOrdering Facility: [facility] Address: [address] [place] [address] Performed By: #### 5 8410-2 ####[facility] LABCLIA [id number] [place] [address] [place] Hematocrit (Bld) [Volume fraction] 34.9 % Low 36.0-46.0 [facility] Comment on above: Order Comment: Speci men Type: BLOOD SPECIMENOrdering Facility: [facility] Address: [address] [place] [address] Performed By: #### 5 8410-2 ####[facility] LABCLIA [id number] [address] [address] [place] Hemoglobin (Bld) [Mass/Vol] 11.7 g/dL Normal 11.5-15.5 [facility] Comment on above: Order Comment: Speci men Type: BLOOD SPECIMENOrdering Facility: [facility] Address: [address] [place] [address] Performed By: #### 5 8410-2 ####[facility] LABIA [id number] [place] [address] [place] MCH (RBC) [Entitic mass] 31.0 pg Normal 26.0-34.0 [facility] Comment on above: Order Comment: Speci men Type: BLOOD SPECIMENOrdering Facility: [facility] Address: [address] [place] [address] Performed By: #### 5 8410-2 ####[facility] [id number] [place] [address] [place] MCHC (RBC) [Mass/Vol] 33.5 g/dL Normal 30.5-36.0 [facility] Comment on above: Order Comment: Speci men Type: BLOOD SPECIMENOrdering Facility: [facility] Address: [address] [place] [address] Performed By: #### 5 8410-2 ####[facility] [id number] [place] [address] [place] MCV (RBC) [Entitic vol] 92.3 fL Normal 80.0-100.0 [facility] Comment on above: Order Comment: Speci men Type: BLOOD SPECIMENOrdering Facility: [facility] Address: [address] [place] [address] Performed By: #### 5 8410-2 ####[facility] [id number] [place] [address] [place] Nucleated RBC (Bld) [#/Vol] 10*3/uL Normal <0.01 [facility] Comment on above: Order Comment: Speci men Type: BLOOD SPECIMENOrdering Facility: [facility] Address: [address] [place] [address] Performed By: #### 5 8410-2 ####[facility] LABCLIA [id number] [place] [address] [place] Platelet mean volume (Bld) [Entitic vol] 12.6 fL Normal 9.0-12.7 [facility] Comment on above: Order Comment: Speci men Type: BLOOD SPECIMENOrdering Facility: [facility] Address: [address] [place] [address] Performed By: #### 5 8410-2 ####[facility] LABIA [id number] [place] [address] [place] Platelets (Bld) [#/Vol] 172 10*3/uL Normal 150-400 [facility] Comment on above: Order Comment: Speci men Type: BLOOD SPECIMENOrdering Facility: [facility] Address: [address] [place] [address] Performed By: #### 5 8410-2 ####[facility] LABIA [id number] [place] [address] [place] RBC (Bld) [#/Vol] 3.78 10*6/uL Low 3.90-5.20 [facility] Comment on above: Order Comment: Speci men Type: BLOOD SPECIMENOrdering Facility: [facility] Address: [address] [place] [address] Performed By: #### 5 8410-2 ####[facility] LABIA [id number] [place] [address] [place] WBC (Bld) [#/Vol] 3.25 10*3/uL Low 3.70-11.00 [facility] Comment on above: Order Comment: Speci men Type: BLOOD SPECIMENOrdering Facility: [facility] Address: [address] [place] [address] Performed By: #### 5 8410-2 ####[facility] LABIA [id number] [place] [address] [place] CNDSon 12-09-2022 CNDS Normal [facility] CNPNon 12-09-2022 CNPN Normal [facility] CONSULT PROGon 12-09-2022 CONSULT PROG Normal [facility] Comprehensive metabolic 2000 panelon 12-09-2022 Albumin [Mass/Vol] 3.6 g/dL Low 3.9-4.9 [facility] Comment on above: Order Comment: Speci men Type: BLOOD SPECIMENOrdering Facility: [facility] Address: [address] [place] [address] Performed By: #### 2 4323-8, , 2776-02 ####[facility] LABIA [id number] [place] [address] [place] ALP [Catalytic activity/Vol] 59 U/L Normal 34-123 [facility] Comment on above: Order Comment: Speci men Type: BLOOD SPECIMENOrdering Facility: [facility] Address: [address] [place] [address] Performed By: #### 2 4323-8, , 2776-02 ####[facility] LABIA [id number] [place] [address] [place] ALT [Catalytic activity/Vol] 13 U/L Normal 7-38 [facility] Comment on above: Order Comment: Speci men Type: BLOOD SPECIMENOrdering Facility: [facility] Address: [address] [place] [address] Performed By: #### 2 4323-8, , 2776-02 ####[facility] LABIA [id number] [place] [id number] [place] Anion gap [Moles/Vol] 9 mmol/L Normal 9-18 [facility] Comment on above: Order Comment: Speci men Type: BLOOD SPECIMENOrdering Facility: [facility] Address: [address] [place] [address] Performed By: #### 2 4323-8, , 2776-02 ####[facility] LABCLIA [id number] [address] [address] [place] AST [Catalytic activity/Vol] 22 U/L Normal 13-35 [facility] Comment on above: Order Comment: Speci men Type: BLOOD SPECIMENOrdering Facility: [facility] Address: [address] [place] [address] Performed By: #### 2 4323-8, , 2776-02 ####[facility] LABCLIA [id number] [place] [id number] [place] Bilirubin [Mass/Vol] 0.2 mg/dL Normal 0.2-1.3 [facility] Comment on above: Order Comment: Speci men Type: BLOOD SPECIMENOrdering Facility: [facility] Address: [address] [place] [address] Performed By: #### 2 4323-8, , 2776-02 ####[facility] LABIA [id number] [place] [address] [place] Calcium [Mass/Vol] 8.7 mg/dL Normal 8.5-10.2 [facility] Comment on above: Order Comment: Speci men Type: BLOOD SPECIMENOrdering Facility: [facility] Address: [address] [place] [address] Performed By: #### 2 4323-8, , 2776-02 ####[facility] LABIA [id number] [place] [id number] [place] Chloride [Moles/Vol] 108 mmol/L High 97-105 [facility] Comment on above: Order Comment: Speci men Type: BLOOD SPECIMENOrdering Facility: [facility] Address: [address] [place] [address] Performed By: #### 2 4323-8, , 2776-02 ####[facility] LABCLIA [id number] [place] [address] [place] CO2 [Moles/Vol] 23 mmol/L Normal 22-30 [facility] Comment on above: Order Comment: Lyssai men Type: BLOOD SPECIMENOrdering Facility: [facility] Address: [address] [place] [address] Performed By: #### 2 4323-8, 10141-9, 2776-02 ####[facility] LABCLIA [id number] [place] [address] [place] Creatinine [Mass/Vol] 0.61 mg/dL Normal 0.58-0.96 [facility] Comment on above: Order Comment: Speci men Type: BLOOD SPECIMENOrdering Facility: [facility] Address: [address] [place] [address] Performed By: #### 2 4323-8, , 2776-02 ####[facility] LABIA [id number] [place] [address] [place] Creatinine and Glomerular filtration rate.predicted panel (S/P/Bld) 121 mL/min/1.73m??? Normal >=60 [facility] Comment on above: Order Comment: Geraldo marrero Type: BLOOD SPECIMENOrdering Facility: [facility] Address: [address] [place] [address] Result Comment: Jessica mated Glomerular Filtration Rate [...] #### 2 4323-8, , 2776-02 ####[facility] LABCLIA [id number] [place] [address] [place] Glucose [Mass/Vol] 79 mg/dL Normal 74-99 [facility] Comment on above: Order Comment: Speci men Type: BLOOD SPECIMENOrdering Facility: [facility] Address: [place] [address] Result Comment: The [place] [employer] (ADA) provides guidance for cutoff [...] Standards of Medical Care in Diabetes 2016, [place] [employer]. Diabetes Care. 2016.39(Suppl 1). Performed By: #### 2 4323-8, , 2776-02 ####[facility] LABCLIA [id number] [place] [address] [place] Potassium [Moles/Vol] 4.2 mmol/L Normal 3.7-5.1 [facility] Comment on above: Order Comment: Geraldo marrero Type: BLOOD SPECIMENOrdering Facility: [facility] Address: [address] [place] [address] Performed By: #### 2 4323-8, , 2776-02 ####[facility] LABCLIA [id number] [place] [id number] [place] Protein [Mass/Vol] 5.8 g/dL Low 6.3-8.0 [facility] Comment on above: Order Comment: Geraldo marrero Type: BLOOD SPECIMENOrdering Facility: [facility] Address: [address] [place], [place] [id number] Performed By: #### 2 4323-8, , 2776-02 ####[facility] LABCLIA [id number] [address] [address] [place] Sodium [Moles/Vol] 140 mmol/L Normal 136-144 [facility] Comment on above: Order Comment: Speci men Type: BLOOD SPECIMENOrdering Facility: [facility] Address: [address] [place] [address] Performed By: #### 2 4323-8, , 2776-02 ####[facility] LABCLIA [id number] [address] [address] [place] Urea nitrogen [Mass/Vol] 16 mg/dL Normal 7-21 [facility] Comment on above: Order Comment: Speci men Type: BLOOD SPECIMENOrdering Facility: [facility] Address: [address] [place] [address] Performed By: #### 2 4323-8, , 2776-02 ####[facility] LABCLIA [id number] [place] [address] [place] Magnesium SerPl-ncon 12-09 Magnesium [Mass/Vol] 2.0 mg/dL Normal 1.7-2.3 [facility] Comment on above: Order Comment: Speci men Type: BLOOD SPECIMENOrdering Facility: [facility] Address: [address] [place] [address] Performed By: #### 2 4323-8, , 2776-02 ####[facility] LABCLIA [id number] [place] [id number] [place] NURSING PROGon 12-09-2022 NURSING PROG Normal [facility] PT EDon 12-09-2022 PT ED Normal [facility] Phosphate SerPl-mCncon 12-09 Phosphate [Mass/Vol] 1.8 mg/dL Low 2.7-4.8 [facility] Comment on above: Order Comment: Speci men Type: BLOOD SPECIMENOrdering Facility: [facility] Address: [address] [place] [address] Result Comment: Resu lt rechecked. Performed By: #### 2 4323-8, , 2776-02 ####[facility] LABCLIA [id number] [place] [address] [place] ALLIED HEALTHon 12-08-2022 ALLIED HEALTH Normal [facility] CBC panel Auto (Bld)on 12-08 Erythrocyte distribution width (RBC) [Ratio] 13.4 % Normal 11.5-15.0 [facility] Comment on above: Order Comment: Speci men Type: BLOOD SPECIMENOrdering Facility: [facility] Address: [address] [place] [address] Performed By: #### 5 8410-2 ####[facility] LABIA [id number] [place] [address] [place] Hematocrit (Bld) [Volume fraction] 32.5 % Low 36.0-46.0 [facility] Comment on above: Order Comment: Speci men Type: BLOOD SPECIMENOrdering Facility: [facility] Address: [address] [place] [address] Performed By: #### 5 8410-2 ####[facility] LABIA [id number] [place] [address] [place] Hemoglobin (Bld) [Mass/Vol] 11.1 g/dL Low 11.5-15.5 [facility] Comment on above: Order Comment: Speci men Type: BLOOD SPECIMENOrdering Facility: [facility] Address: [address] [place] [address] Performed By: #### 5 8410-2 ####[facility] LABIA [id number] [place] [address] [place] MCH (RBC) [Entitic mass] 31.2 pg Normal 26.0-34.0 [facility] Comment on above: Order Comment: Speci men Type: BLOOD SPECIMENOrdering Facility: [facility] Address: [address] [place] [address] Performed By: #### 5 8410-2 ####[facility] LABIA [id number] [place] [address] [place] MCHC (RBC) [Mass/Vol] 34.2 g/dL Normal 30.5-36.0 [facility] Comment on above: Order Comment: Speci men Type: BLOOD SPECIMENOrdering Facility: [facility] Address: [address] [place] [address] Performed By: #### 5 8410-2 ####[facility] LABCLIA [id number] [place] [address] [place] MCV (RBC) [Entitic vol] 91.3 fL Normal 80.0-100.0 [facility] Comment on above: Order Comment: Speci men Type: BLOOD SPECIMENOrdering Facility: [facility] Address: [address] [place] [address] Performed By: #### 5 8410-2 ####[facility] LABCLIA [id number] [place] [address] [place] Nucleated RBC (Bld) [#/Vol] 10*3/uL Normal <0.01 [facility] Comment on above: Order Comment: Speci men Type: BLOOD SPECIMENOrdering Facility: [facility] Address: [address] [place] [address] Performed By: #### 5 8410-2 ####[facility] LABCLIA [id number] [place] [address] [place] Platelet mean volume (Bld) [Entitic vol] 12.4 fL Normal 9.0-12.7 [facility] Comment on above: Order Comment: Speci men Type: BLOOD SPECIMENOrdering Facility: [facility] Address: [address] [place] [address] Performed By: #### 5 8410-2 ####[facility] LABCLIA [id number] [place] [address] [place] Platelets (Bld) [#/Vol] 161 10*3/uL Normal 150-400 [facility] Comment on above: Order Comment: Speci men Type: BLOOD SPECIMENOrdering Facility: [facility] Address: [address] [place] [address] Performed By: #### 5 8410-2 ####[facility] LABCLIA [id number] [place] [address] [place] RBC (Bld) [#/Vol] 3.56 10*6/uL Low 3.90-5.20 [facility] Comment on above: Order Comment: Speci men Type: BLOOD SPECIMENOrdering Facility: [facility] Address: [address] [place] [address] Performed By: #### 5 8410-2 ####[facility] LABIA [id number] [place] [address] [place] WBC (Bld) [#/Vol] 2.94 10*3/uL Low 3.70-11.00 [facility] Comment on above: Order Comment: Speci men Type: BLOOD SPECIMENOrdering Facility: [facility] Address: [address] [place] [address] Performed By: #### 5 8410-2 ####[facility] LABIA [id number] [place] [address] [place] CNPNon 12-08-2022 CNPN Normal [facility] CONSULT PROGon 12-08-2022 CONSULT PROG Normal [facility] Comprehensive metabolic 2000 panelon 12-08-2022 Albumin [Mass/Vol] 3.1 g/dL Low 3.9-4.9 [facility] Comment on above: Order Comment: Speci men Type: BLOOD SPECIMENOrdering Facility: [facility] Address: [address] [place] [address] Performed By: #### 2 777-1, 89863-9, 21228-2 ####[facility] LABCLIA [id number] [place] [address] [place] ALP [Catalytic activity/Vol] 57 U/L Normal 34-123 [facility] Comment on above: Order Comment: Speci men Type: BLOOD SPECIMENOrdering Facility: [facility] Address: [address] [place] [address] Performed By: #### 2 777-1, , ####[facility] LABCLIA [id number] [place] [id number] [place] ALT [Catalytic activity/Vol] 16 U/L Normal 7-38 [facility] Comment on above: Order Comment: Speci men Type: BLOOD SPECIMENOrdering Facility: [facility] Address: [address] [place] [address] Performed By: #### 2 777-1, , ####[facility] LABCLIA [id number] [place] [address] [place] Anion gap [Moles/Vol] 9 mmol/L Normal 9-18 [facility] Comment on above: Order Comment: Speci men Type: BLOOD SPECIMENOrdering Facility: [facility] Address: [address] [place] [address] Performed By: #### 2 777-1, , ####[facility] LABCLIA [id number] [place] [address] [place] AST [Catalytic activity/Vol] 26 U/L Normal 13-35 [facility] Comment on above: Order Comment: Speci men Type: BLOOD SPECIMENOrdering Facility: [facility] Address: [address] [place] [address] Performed By: #### 2 777-1, , ####[facility] LABCLIA [id number] [place] [address] [place] Bilirubin [Mass/Vol] 0.2 mg/dL Normal 0.2-1.3 [facility] Comment on above: Order Comment: Speci men Type: BLOOD SPECIMENOrdering Facility: [facility] Address: [address] [place] [address] Performed By: #### 2 777-1, , ####[facility] LABCLIA [id number] [address] [address] [place] Calcium [Mass/Vol] 8.2 mg/dL Low 8.5-10.2 [facility] Comment on above: Order Comment: Speci men Type: BLOOD SPECIMENOrdering Facility: [facility] Address: [address] [place] [address] Performed By: #### 2 777-1, , ####[facility] LABCLIA [id number] [place] [address] [place] Chloride [Moles/Vol] 109 mmol/L High 97-105 [facility] Comment on above: Order Comment: Speci men Type: BLOOD SPECIMENOrdering Facility: [facility] Address: [address] [place] [address] Performed By: #### 2 777-1, , ####[facility] LABIA [id number] [place] [address] [place] CO2 [Moles/Vol] 23 mmol/L Normal 22-30 [facility] Comment on above: Order Comment: Speci men Type: BLOOD SPECIMENOrdering Facility: [facility] Address: [address] [place] [address] Performed By: #### 2 777-1, , ####[facility] LABIA [id number] [address] [address] [place] Creatinine [Mass/Vol] 0.73 mg/dL Normal 0.58-0.96 [facility] Comment on above: Order Comment: Speci men Type: BLOOD SPECIMENOrdering Facility: [facility] Address: [address] [place] [address] Performed By: #### 2 777-1, , ####[facility] LABCLIA [id number] [place] [address] [place] Creatinine and Glomerular filtration rate.predicted panel (S/P/Bld) 112 mL/min/1.73m??? Normal >=60 [facility] Comment on above: Order Comment: Geraldo marrero Type: BLOOD SPECIMENOrdering Facility: [facility] Address: [address] [place] [address] Result Comment: Jessica mated Glomerular Filtration Rate [...] GFR. Performed By: #### 2 777-1, , ####[facility] LABCLIA [id number] [place] [address] [place] Glucose [Mass/Vol] 119 mg/dL High 74-99 [facility] Comment on above: Order Comment: Geraldo marrero Type: BLOOD SPECIMENOrdering Facility: [facility] Address: [address] [place] [address] Result Comment: The [place] [employer] (ADA) provides guidance for cutoff [...] Standards of Medical Care in Diabetes 2016, [place] [employer]. Diabetes Care. 2016.39(Suppl 1). Performed By: #### 2 777-1, , ####[facility] LABCLIA [id number] [address] [address] [place] Potassium [Moles/Vol] 3.5 mmol/L Low 3.7-5.1 [facility] Comment on above: Order Comment: Speci men Type: BLOOD SPECIMENOrdering Facility: [facility] Address: [address] [place] [address] Performed By: #### 2 777-1, , ####[facility] LABCLIA [id number] [address] [address] [place] Protein [Mass/Vol] 5.2 g/dL Low 6.3-8.0 [facility] Comment on above: Order Comment: Speci men Type: BLOOD SPECIMENOrdering Facility: [facility] Address: [address] [place] [address] Performed By: #### 2 777-1, , ####[facility] LABIA [id number] [place] [id number] [place] Sodium [Moles/Vol] 141 mmol/L Normal 136-144 [facility] Comment on above: Order Comment: Speci men Type: BLOOD SPECIMENOrdering Facility: [facility] Address: [address] [place] [address] Performed By: #### 2 777-1, , ####[facility] LABCLIA [id number] [address] [address] [place] Urea nitrogen [Mass/Vol] 10 mg/dL Normal 7-21 [facility] Comment on above: Order Comment: Speci men Type: BLOOD SPECIMENOrdering Facility: [facility] Address: [address] [place] [address] Performed By: #### 2 777-1, , ####[facility] LABCLIA [id number] [address] [address] [place] Magnesium SerPl-mCncon 12-08 Magnesium [Mass/Vol] 2.1 mg/dL Normal 1.7-2.3 [facility] Comment on above: Order Comment: Speci men Type: BLOOD SPECIMENOrdering Facility: [facility] Address: [address] [place] [address] Performed By: #### 2 777-1, 71080-6, 56533-3 ####[facility] LABCLIA [id number] [place] [address] [place] Phosphate SerPl-mCncon 12-08 Phosphate [Mass/Vol] 4.7 mg/dL Normal 2.7-4.8 [facility] Comment on above: Order Comment: Speci men Type: BLOOD SPECIMENOrdering Facility: [facility] Address: [address] [place] [address] Performed By: #### 2 777-1, , ####[facility] LABIA [id number] [place] [address] [place] CBC panel Auto (Bld)on 12-07 Erythrocyte distribution width (RBC) [Ratio] 13.2 % Normal 11.5-15.0 [facility] Comment on above: Order Comment: Speci men Type: BLOOD SPECIMENOrdering Facility: [facility] Address: [address] [place] [address] Performed By: #### 5 8410-2 ####[facility] LABCLIA [id number] [place] [address] [place] Hematocrit (Bld) [Volume fraction] 33.9 % Low 36.0-46.0 [facility] Comment on above: Order Comment: Speci men Type: BLOOD SPECIMENOrdering Facility: [facility] Address: [address] [place] [address] Performed By: #### 5 8410-2 ####[facility] LABCLIA [id number] [place] [address] [place] Hemoglobin (Bld) [Mass/Vol] 11.6 g/dL Normal 11.5-15.5 [facility] Comment on above: Order Comment: Speci men Type: BLOOD SPECIMENOrdering Facility: [facility] Address: [address] [place] [address] Performed By: #### 5 8410-2 ####[facility] LABIA [id number] [place] [address] [place] MCH (RBC) [Entitic mass] 30.9 pg Normal 26.0-34.0 [facility] Comment on above: Order Comment: Speci men Type: BLOOD SPECIMENOrdering Facility: [facility] Address: [address] [place] [address] Performed By: #### 5 8410-2 ####[facility] LABIA [id number] [place] [address] [place] MCHC (RBC) [Mass/Vol] 34.2 g/dL Normal 30.5-36.0 [facility] Comment on above: Order Comment: Speci men Type: BLOOD SPECIMENOrdering Facility: [facility] Address: [address] [place] [address] Performed By: #### 5 8410-2 ####[facility] LABIA [id number] [place] [address] [place] MCV (RBC) [Entitic vol] 90.4 fL Normal 80.0-100.0 [facility] Comment on above: Order Comment: Speci men Type: BLOOD SPECIMENOrdering Facility: [facility] Address: [address] [place] [address] Performed By: #### 5 8410-2 ####[facility] LABCLIA [id number] [place] [address] [place] Nucleated RBC (Bld) [#/Vol] 10*3/uL Normal <0.01 [facility] Comment on above: Order Comment: Speci men Type: BLOOD SPECIMENOrdering Facility: [facility] Address: [address] [place] [address] Performed By: #### 5 8410-2 ####[facility] LABIA [id number] [place] [address] [place] Platelet mean volume (Bld) [Entitic vol] 12.5 fL Normal 9.0-12.7 [facility] Comment on above: Order Comment: Speci men Type: BLOOD SPECIMENOrdering Facility: [facility] Address: [address] [place] [address] Performed By: #### 5 8410-2 ####[facility] LABIA [id number] [place] [address] [place] Platelets (Bld) [#/Vol] 175 10*3/uL Normal 150-400 [facility] Comment on above: Order Comment: Speci men Type: BLOOD SPECIMENOrdering Facility: [facility] Address: [address] [place] [address] Performed By: #### 5 8410-2 ####[facility] LABIA [id number] [place] [address] [place] RBC (Bld) [#/Vol] 3.75 10*6/uL Low 3.90-5.20 [facility] Comment on above: Order Comment: Speci men Type: BLOOD SPECIMENOrdering Facility: [facility] Address: [address] [place] [address] Performed By: #### 5 8410-2 ####[facility] LABIA [id number] [place] [address] [place] WBC (Bld) [#/Vol] 2.61 10*3/uL Low 3.70-11.00 [facility] Comment on above: Order Comment: Speci men Type: BLOOD SPECIMENOrdering Facility: [facility] Address: [address] [place] [address] Performed By: #### 5 8410-2 ####[facility] LABCLIA [id number] [address] [address] [place] CONSULTon 12-07-2022 CONSULT Normal [facility] CONSULT PROGon 12-07-2022 CONSULT PROG Normal [facility] Comprehensive metabolic 2000 panelon 12-07-2022 Albumin [Mass/Vol] 3.4 g/dL Low 3.9-4.9 [facility] Comment on above: Order Comment: Speci men Type: BLOOD SPECIMENOrdering Facility: [facility] Address: [address] [place] [address] Performed By: #### 2 4323-8 ####[facility] LABCLIA [id number] [place] [address] [place] ALP [Catalytic activity/Vol] 62 U/L Normal 34-123 [facility] Comment on above: Order Comment: Speci men Type: BLOOD SPECIMENOrdering Facility: [facility] Address: [address] [place] [address] Performed By: #### 2 4323-8 ####[facility] LABCLIA [id number] [place] [address] [place] ALT [Catalytic activity/Vol] 19 U/L Normal 7-38 [facility] Comment on above: Order Comment: Speci men Type: BLOOD SPECIMENOrdering Facility: [facility] Address: [address] [place] [address] Performed By: #### 2 4323-8 ####[facility] LABCLIA [id number] [place] [id number] [place] Anion gap [Moles/Vol] 9 mmol/L Normal 9-18 [facility] Comment on above: Order Comment: Speci men Type: BLOOD SPECIMENOrdering Facility: [facility] Address: [address] [place] [address] Performed By: #### 2 4323-8 ####[facility] LABCLIA [id number] [place] [address] [place] AST [Catalytic activity/Vol] 31 U/L Normal 13-35 [facility] Comment on above: Order Comment: Speci men Type: BLOOD SPECIMENOrdering Facility: [facility] Address: [address] [place] [address] Performed By: #### 2 4323-8 ####[facility] LABCLIA [id number] [place] [address] [place] Bilirubin [Mass/Vol] 0.3 mg/dL Normal 0.2-1.3 [facility] Comment on above: Order Comment: Speci men Type: BLOOD SPECIMENOrdering Facility: [facility] Address: [address] [place] [address] Performed By: #### 2 4323-8 ####[facility] LABCLIA [id number] [place] [address] [place] Calcium [Mass/Vol] 8.6 mg/dL Normal 8.5-10.2 [facility] Comment on above: Order Comment: Speci men Type: BLOOD SPECIMENOrdering Facility: [facility] Address: [address] [place] [address] Performed By: #### 2 4323-8 ####[facility] LABCLIA [id number] [place] [address] [place] Chloride [Moles/Vol] 108 mmol/L High 97-105 [facility] Comment on above: Order Comment: Speci men Type: BLOOD SPECIMENOrdering Facility: [facility] Address: [address] [place] [address] Performed By: #### 2 4323-8 ####[facility] LABCLIA [id number] [place] [address] [place] CO2 [Moles/Vol] 22 mmol/L Normal 22-30 [facility] Comment on above: Order Comment: Speci men Type: BLOOD SPECIMENOrdering Facility: [facility] Address: [address] [place] [id number] Performed By: #### 2 4323-8 ####[facility] LABIA [id number] [address] STATES OF [facility] Creatinine [Mass/Vol] 0.85 mg/dL Normal 0.58-0.96 [facility] Comment on above: Order Comment: Speci men Type: BLOOD SPECIMENOrdering Facility: [facility] Address: [address] [place] [address] Performed By: #### 2 4323-8 ####[facility] LABIA [id number] [place] [address] [place] Creatinine and Glomerular filtration rate.predicted panel (S/P/Bld) 93 mL/min/1.73m??? Normal >=60 [facility] Comment on above: Order Comment: Speci men Type: BLOOD SPECIMENOrdering Facility: [facility] Address: [address] [place] [address] Result Comment: Jessica mated Glomerular Filtration Rate [...] Performed By: #### 2 4323-8 ####[facility] LABIA [id number] [place] [address] [place] Glucose [Mass/Vol] 80 mg/dL Normal 74-99 [facility] Comment on above: Order Comment: Speci men Type: BLOOD SPECIMENOrdering Facility: [facility] Address: [address] [place] [address] Result Comment: The [place] [employer] (ADA) provides guidance for cutoff [...] Standards of Medical Care in Diabetes 2016, [place] [employer]. Diabetes Care. 2016.39(Suppl 1). Performed By: #### 2 4323-8 ####[facility] LABCLIA [id number] [place] [address] [place] Potassium [Moles/Vol] 3.7 mmol/L Normal 3.7-5.1 [facility] Comment on above: Order Comment: Speci men Type: BLOOD SPECIMENOrdering Facility: [facility] Address: [address] [place] [address] Performed By: #### 2 4323-8 ####[facility] LABCLIA [id number] [place] [address] [place] Protein [Mass/Vol] 5.5 g/dL Low 6.3-8.0 [facility] Comment on above: Order Comment: Speci men Type: BLOOD SPECIMENOrdering Facility: [facility] Address: [address] [place] [address] Performed By: #### 2 4323-8 ####[facility] LABCLIA [id number] [place] [address] [place] Sodium [Moles/Vol] 139 mmol/L Normal 136-144 [facility] Comment on above: Order Comment: Speci men Type: BLOOD SPECIMENOrdering Facility: [facility] Address: [address] [place] [address] Performed By: #### 2 4323-8 ####[facility] LABCLIA [id number] [place] [address] [place] Urea nitrogen [Mass/Vol] 12 mg/dL Normal 7-21 [facility] Comment on above: Order Comment: Speci men Type: BLOOD SPECIMENOrdering Facility: [facility] Address: [address] [place] [address] Performed By: #### 2 4323-8 ####[facility] LABCLIA [id number] [place] [address] [place] NURSING PROGon 12-07-2022 NURSING PROG Normal [facility] XR CHEST 1V PORT POST PICC - NBon 12-07-2022 XR CHEST 1V PORT POST PICC -NB Normal [facility] CASE MGT INIT ASSESon 2022 CASE MGT INIT ASSES Normal [facility] CBC W Auto Differential pane l (Bld)on 12-06-2022 Basophils (Bld) [#/Vol] 10*3/uL Normal <0.11 [facility] Comment on above: Order Comment: Speci men Type: BLOOD SPECIMENOrdering Facility: [facility] Address: [address] [place] [address] Performed By: #### 5 7021-8 ####[facility] LABCLIA [id number] [place] [address] [place] Basophils/100 WBC (Bld) 0.7 % Normal [facility] Comment on above: Order Comment: Speci men Type: BLOOD SPECIMENOrdering Facility: [facility] Address: [address] [place] [address] Performed By: #### 5 7021-8 ####[facility] LABCLIA [id number] [place] [address] [place] Differential cell count method Nom (Bld) Auto Normal [facility] Comment on above: Order Comment: Speci men Type: BLOOD SPECIMENOrdering Facility: [facility] Address: [address] [place] [address] Performed By: #### 5 7021-8 ####[facility] LABCLIA [id number] [place] [address] [place] Eosinophils (Bld) [#/Vol] 0.09 10*3/uL Normal <0.46 [facility] Comment on above: Order Comment: Speci men Type: BLOOD SPECIMENOrdering Facility: [facility] Address: [address] [place] [address] Performed By: #### 5 7021-8 ####[facility] LABCLIA [id number] [place] [address] [place] Eosinophils/100 WBC (Bld) 2.9 % Normal [facility] Comment on above: Order Comment: Speci men Type: BLOOD SPECIMENOrdering Facility: [facility] Address: [address] [place] [address] Performed By: #### 5 7021-8 ####[facility] LABCLIA [id number] [place] [address] [place] Erythrocyte distribution width (RBC) [Ratio] 13.2 % Normal 11.5-15.0 [facility] Comment on above: Order Comment: Speci men Type: BLOOD SPECIMENOrdering Facility: [facility] Address: [address] [place] [address] Performed By: #### 5 7021-8 ####[facility] LABCLIA [id number] [place] [address] [place] Hematocrit (Bld) [Volume fraction] 33.7 % Low 36.0-46.0 [facility] Comment on above: Order Comment: Speci men Type: BLOOD SPECIMENOrdering Facility: [facility] Address: [address] [place] [address] Performed By: #### 5 7021-8 ####[facility] LABCLIA [id number] [place] [address] [place] Hemoglobin (Bld) [Mass/Vol] 11.6 g/dL Normal 11.5-15.5 [facility] Comment on above: Order Comment: Speci men Type: BLOOD SPECIMENOrdering Facility: [facility] Address: [address] [place] [address] Performed By: #### 5 7021-8 ####[facility] LABCLIA [id number] [place] [address] [place] Immature granulocytes (Bld) [#/Vol] 10*3/uL Normal <0.10 [facility] Comment on above: Order Comment: Speci men Type: BLOOD SPECIMENOrdering Facility: [facility] Address: [address] [place] [address] Performed By: #### 5 7021-8 ####[facility] LABCLIA [id number] [place] [address] [place] Immature granulocytes/100 WBC (Bld) 0.3 % Normal [facility] Comment on above: Order Comment: Speci men Type: BLOOD SPECIMENOrdering Facility: [facility] Address: [address] [place] [address] Performed By: #### 5 7021-8 ####[facility] LABCLIA [id number] [place] [address] [place] Lymphocytes (Bld) [#/Vol] 1.31 10*3/uL Normal 1.00-4.00 [facility] Comment on above: Order Comment: Speci men Type: BLOOD SPECIMENOrdering Facility: [facility] Address: [address] [place] [address] Performed By: #### 5 7021-8 ####[facility] LABCLIA [id number] [place] [address] [place] Lymphocytes/100 WBC (Bld) 42.8 % Normal [facility] Comment on above: Order Comment: Speci men Type: BLOOD SPECIMENOrdering Facility: [facility] Address: [address] [place] [address] Performed By: #### 5 7021-8 ####[facility] LABCLIA [id number] [place] [address] [place] MCH (RBC) [Entitic mass] 30.8 pg Normal 26.0-34.0 [facility] Comment on above: Order Comment: Speci men Type: BLOOD SPECIMENOrdering Facility: [facility] Address: [address] [place] [address] Performed By: #### 5 7021-8 ####[facility] [id number] [place] [address] [place] MCHC (RBC) [Mass/Vol] 34.4 g/dL Normal 30.5-36.0 [facility] Comment on above: Order Comment: Speci men Type: BLOOD SPECIMENOrdering Facility: [facility] Address: [address] [place] [address] Performed By: #### 5 7021-8 ####[facility] [id number] [place] [address] [place] MCV (RBC) [Entitic vol] 89.4 fL Normal 80.0-100.0 [facility] Comment on above: Order Comment: Speci men Type: BLOOD SPECIMENOrdering Facility: [facility] Address: [address] [place] [address] Performed By: #### 5 7021-8 ####[facility] [id number] [place] [address] [place] Monocytes (Bld) [#/Vol] 0.24 10*3/uL Normal <0.87 [facility] Comment on above: Order Comment: Speci men Type: BLOOD SPECIMENOrdering Facility: [facility] Address: [address] [place] [address] Performed By: #### 5 7021-8 ####[facility] LABIA [id number] [place] [address] [place] Monocytes/100 WBC (Bld) 7.8 % Normal [facility] Comment on above: Order Comment: Speci men Type: BLOOD SPECIMENOrdering Facility: [facility] Address: [address] [place] [address] Performed By: #### 5 7021-8 ####[facility] LABCLIA [id number] [place] [address] [place] Neutrophils (Bld) [#/Vol] 1.39 10*3/uL Low 1.45-7.50 [facility] Comment on above: Order Comment: Speci men Type: BLOOD SPECIMENOrdering Facility: [facility] Address: [address] [place] [address] Performed By: #### 5 7021-8 ####[facility] LABCLIA [id number] [place] [address] [place] Neutrophils/100 WBC (Bld) 45.5 % Normal [facility] Comment on above: Order Comment: Speci men Type: BLOOD SPECIMENOrdering Facility: [facility] Address: [address] [place] [address] Performed By: #### 5 7021-8 ####[facility] LABCLIA [id number] [place] [address] [place] Nucleated RBC (Bld) [#/Vol] 10*3/uL Normal <0.01 [facility] Comment on above: Order Comment: Speci men Type: BLOOD SPECIMENOrdering Facility: [facility] Address: [address] [place] [address] Performed By: #### 5 7021-8 ####[facility] LABCLIA [id number] [place] [address] [place] Nucleated RBC/100 WBC (Bld) [Ratio] 0.0 /100 WBC Normal [facility] Comment on above: Order Comment: Speci men Type: BLOOD SPECIMENOrdering Facility: [facility] Address: [address] [place] [address] Performed By: #### 5 7021-8 ####[facility] LABCLIA [id number] [place] [address] [place] Platelet mean volume (Bld) [Entitic vol] 11.9 fL Normal 9.0-12.7 [facility] Comment on above: Order Comment: Speci men Type: BLOOD SPECIMENOrdering Facility: [facility] Address: [address] [place] [address] Performed By: #### 5 7021-8 ####[facility] LABIA [id number] [place] [address] [place] Platelets (Bld) [#/Vol] 163 10*3/uL Normal 150-400 [facility] Comment on above: Order Comment: Speci men Type: BLOOD SPECIMENOrdering Facility: [facility] Address: [address] [place] [address] Performed By: #### 5 7021-8 ####[facility] LABIA [id number] [place] [address] [place] RBC (Bld) [#/Vol] 3.77 10*6/uL Low 3.90-5.20 [facility] Comment on above: Order Comment: Speci men Type: BLOOD SPECIMENOrdering Facility: [facility] Address: [address] [place] [address] Performed By: #### 5 7021-8 ####[facility] LABIA [id number] [place] [address] [place] WBC (Bld) [#/Vol] 3.06 10*3/uL Low 3.70-11.00 [facility] Comment on above: Order Comment: Speci men Type: BLOOD SPECIMENOrdering Facility: [facility] Address: [address] [place] [address] Performed By: #### 5 7021-8 ####[facility] LABIA [id number] [place] [address] [place] CTA ABD/PELV W IVCONon 12-06 CTA ABD/PELV W IVCON Normal [facility] metabolic 2000 panelon 12-06-2022 Albumin [Mass/Vol] 3.6 g/dL Low 3.9-4.9 [facility] Comment on above: Order Comment: Speci men Type: BLOOD SPECIMENOrdering Facility: [facility] Address: [address] [place] [address] Performed By: #### 2 4323-8, 3040-3, , 2776-02 ####[facility] LABCLIA [id number] [place] [address] [place] ALP [Catalytic activity/Vol] 61 U/L Normal 34-123 [facility] Comment on above: Order Comment: Speci men Type: BLOOD SPECIMENOrdering Facility: [facility] Address: [address] [place] [address] Performed By: #### 2 4323-8, 0-3, , 2776-02 ####[facility] LABCLIA [id number] [place] [address] [place] ALT [Catalytic activity/Vol] 16 U/L Normal 7-38 [facility] Comment on above: Order Comment: Speci men Type: BLOOD SPECIMENOrdering Facility: [facility] Address: [address] [place] [address] Performed By: #### 2 4323-8, 3039-3, , 2776-02 ####[facility] LABCLIA [id number] [place] [address] [place] Anion gap [Moles/Vol] 10 mmol/L Normal 9-18 [facility] Comment on above: Order Comment: Speci men Type: BLOOD SPECIMENOrdering Facility: [facility] Address: [address] [place] [address] Performed By: #### 2 4323-8, 3039-3, , 2776-02 ####[facility] LABCLIA [id number] [address] [address] [place] AST [Catalytic activity/Vol] 29 U/L Normal 13-35 [facility] Comment on above: Order Comment: Speci men Type: BLOOD SPECIMENOrdering Facility: [facility] Address: [address] [place] [id number] Performed By: #### 2 4323-8, 0-3, , 2776-02 ####[facility] LABCLIA [id number] [address] [address] [place] Bilirubin [Mass/Vol] 0.2 mg/dL Normal 0.2-1.3 [facility] Comment on above: Order Comment: Speci men Type: BLOOD SPECIMENOrdering Facility: [facility] Address: [address] [place] [address] Performed By: #### 2 4323-8, 0-3, , 2776-02 ####[facility] LABCLIA [id number] [place] [address] [place] Calcium [Mass/Vol] 8.2 mg/dL Low 8.5-10.2 [facility] Comment on above: Order Comment: Speci men Type: BLOOD SPECIMENOrdering Facility: [facility] Address: [address] [place] [address] Performed By: #### 2 4323-8, 3039-3, , 2776-02 ####[facility] LABIA [id number] [place] [address] [place] Chloride [Moles/Vol] 109 mmol/L High 97-105 [facility] Comment on above: Order Comment: Speci men Type: BLOOD SPECIMENOrdering Facility: [facility] Address: [address] [place] [address] Performed By: #### 2 4323-8, 3039-3, , 2776-02 ####[facility] LABCLIA [id number] [place] [id number] [place] CO2 [Moles/Vol] 21 mmol/L Low 22-30 [facility] Comment on above: Order Comment: Speci men Type: BLOOD SPECIMENOrdering Facility: [facility] Address: [address] [place] [address] Performed By: #### 2 4323-8, 3040-3, , 2776-02 ####[facility] LABCLIA [id number] [address] [address] [place] Creatinine [Mass/Vol] 0.66 mg/dL Normal 0.58-0.96 [facility] Comment on above: Order Comment: Speci men Type: BLOOD SPECIMENOrdering Facility: [facility] Address: [address] [place] [address] Performed By: #### 2 4323-8, 0-3, , 2776-02 ####[facility] LABIA [id number] [place] [address] [place] Creatinine and Glomerular filtration rate.predicted panel (S/P/Bld) 119 mL/min/1.73m??? Normal >=60 [facility] Comment on above: Order Comment: Speci men Type: BLOOD SPECIMENOrdering Facility: [facility] Address: [address] [place] [address] Result Comment: Jessica mated Glomerular Filtration Rate [...] 2 4323-8, 3040-3, , 2776-02 ####[facility] LABIA [id number] [place] [address] [place] Glucose [Mass/Vol] 83 mg/dL Normal 74-99 [facility] Comment on above: Order Comment: Speci men Type: BLOOD SPECIMENOrdering Facility: [facility] Address: [address] [place] [address] Result Comment: The [place] [employer] (ADA) provides guidance for cutoff [...] Standards of Medical Care in Diabetes 2016, [place] [employer]. Diabetes Care. 2016.39(Suppl 1). Performed By: #### 2 4323-8, 0-3, , 2776-02 ####[facility] LABIA [id number] [place] [address] [place] Potassium [Moles/Vol] 3.7 mmol/L Normal 3.7-5.1 [facility] Comment on above: Order Comment: Speci men Type: BLOOD SPECIMENOrdering Facility: [facility] Address: [address] [place] [address] Performed By: #### 2 4323-8, 0-3, , 2776-02 ####[facility] LABIA [id number] [place] [id number] [place] Protein [Mass/Vol] 5.9 g/dL Low 6.3-8.0 [facility] Comment on above: Order Comment: Speci men Type: BLOOD SPECIMENOrdering Facility: [facility] Address: [address] [place] [address] Performed By: #### 2 4323-8, 0-3, , 2776-02 ####[facility] LABCLIA [id number] [place] [id number] [place] Sodium [Moles/Vol] 140 mmol/L Normal 136-144 [facility] Comment on above: Order Comment: Speci men Type: BLOOD SPECIMENOrdering Facility: [facility] Address: [address] [place] [address] Performed By: #### 2 4323-8, 0-3, , 2776-02 ####[facility] LABCLIA [id number] [address] [address] [place] Urea nitrogen [Mass/Vol] 13 mg/dL Normal 7-21 [facility] Comment on above: Order Comment: Speci men Type: BLOOD SPECIMENOrdering Facility: [facility] Address: [address] [place] [address] Performed By: #### 2 4323-8, 3, , 2776-02 ####[facility] LABCLIA [id number] [place] [address] [place] ED NOTEon 12-06-2022 ED NOTE HNO ID: [id number] Author: Michelle Regalado RN Service: Emergency Medicine Author Type: Registered Nurse Type: ED Notes Filed: 12/06/2022 10:09 PM Note Text: Report called to DEE Argueta. Normal [facility] ED NOTE HNO ID: [id number] Author: Maia Mosher RN Service: Emergency Medicine Author Type: Registered Nurse Type: ED Notes Filed: 12/06/2022 3:19 PM Note Text: Nurse handoff given to DEE Carreon Normal [facility] ED PROV NOTEon 12-06-2022 ED PROV NOTE Normal [facility] HISTORY PHYSICALon HISTORY PHYSICAL Normal [facility] Lipase SerPl-cCncon 12-07-19 23 Lipase [Catalytic activity/Vol] 40 U/L Normal 16-61 [facility] Comment on above: Order Comment: Speci men Type: BLOOD SPECIMENOrdering Facility: [facility] Address: [address] [place] [id number] Performed By: #### 2 4323-8, 3039-3, , 2776-02 ####[facility] LABCLIA [id number] [place] [address] [place] Magnesium SerPl-ncon 12-06 Magnesium [Mass/Vol] 2.0 mg/dL Normal 1.7-2.3 [facility] Comment on above: Order Comment: Speci men Type: BLOOD SPECIMENOrdering Facility: [facility] Address: [address] [place] [address] Performed By: #### 2 4323-8, 0-3, 70012-3, 7-1 ####[facility] LABIA [id number] [place] [address] [place] Phosphate SerPl-mCncon 12-06 Phosphate [Mass/Vol] 2.7 mg/dL Normal 2.7-4.8 [facility] Comment on above: Order Comment: Speci men Type: BLOOD SPECIMENOrdering Facility: [facility] Address: [address] [place] [address] Performed By: #### 2 4323-8, 3040-3, , 2776- ####[facility] LABIA [id number] [place] [address] [place] Urinalysis complete panel (U )on 12-06-2022 Bacteria LM.HPF (Urine sed) [#/Area] Negative Normal Negative [facility] Comment on above: Order Comment: Speci men Type: URINE SPECIMENOrdering Facility: [facility] Address: [address] [place] [address] Performed By: #### 2 4356-8 ####[facility] LABIA [id number] [place] [address] [place] Bilirubin Ql (U) Negative Normal Negative [facility] Comment on above: Order Comment: Speci men Type: URINE SPECIMENOrdering Facility: [facility] Address: [address] [place] [address] Performed By: #### 2 4356-8 ####[facility] LABIA [id number] [place] [address] [place] Clarity (Unsp spec) Clear Normal Clear [facility] Comment on above: Order Comment: Speci men Type: URINE SPECIMENOrdering Facility: [facility] Address: [address] [place] [address] Performed By: #### 2 4356-8 ####[facility] LABIA [id number] [place] [address] [place] Color (U) Yellow Normal Yellow [facility] Comment on above: Order Comment: Speci men Type: URINE SPECIMENOrdering Facility: [facility] Address: [address] [place] [address] Performed By: #### 2 4356-8 ####[facility] [id number] [place] [address] [place] Epithelial cells LM.HPF (Urine sed) [#/Area] Moderate Normal [facility] Comment on above: Order Comment: Speci men Type: URINE SPECIMENOrdering Facility: [facility] Address: [address] [place] [address] Performed By: #### 2 4356-8 ####[facility] LABIA [id number] [place] [address] [place] Glucose Test strip (U) [Mass/Vol] Negative Normal Negative [facility] Comment on above: Order Comment: Speci men Type: URINE SPECIMENOrdering Facility: [facility] Address: [address] [place] [address] Performed By: #### 2 4356-8 ####[facility] LABIA [id number] [place] [address] [place] Hemoglobin Ql (U) Negative Normal Negative [facility] Comment on above: Order Comment: Speci men Type: URINE SPECIMENOrdering Facility: [facility] Address: [address] [place] [address] Performed By: #### 2 4356-8 ####[facility] LABCLIA [id number] [place] [address] [place] Hyaline casts (Urine sed) [#/Area] 0 /[LPF] Normal 0 /LPF [facility] Comment on above: Order Comment: Speci men Type: URINE SPECIMENOrdering Facility: [facility] Address: [address] [place] [address] Performed By: #### 2 4356-8 ####[facility] LABCLIA [id number] [place] [address] [place] Ketones Ql (U) Negative Normal Negative [facility] Comment on above: Order Comment: Speci men Type: URINE SPECIMENOrdering Facility: [facility] Address: [address] [place] [address] Performed By: #### 2 4356-8 ####[facility] LABCLIA [id number] [place] [address] [place] Leukocyte esterase Test strip Ql (U) Negative Normal Negative [facility] Comment on above: Order Comment: Speci men Type: URINE SPECIMENOrdering Facility: [facility] Address: [address] [place] [address] Performed By: #### 2 4356-8 ####[facility] LABCLIA [id number] [place] [address] [place] Nitrite Ql (U) Negative Normal Negative [facility] Comment on above: Order Comment: Speci men Type: URINE SPECIMENOrdering Facility: [facility] Address: [address] [place] [address] Performed By: #### 2 4356-8 ####[facility] LABCLIA [id number] [place] [address] [place] pH (U) 7.0 [pH] Normal <8.5 [facility] Comment on above: Order Comment: Speci men Type: URINE SPECIMENOrdering Facility: [facility] Address: [address] [place] [address] Performed By: #### 2 4356-8 ####[facility] LABIA [id number] [place] [address] [place] Protein (U) [Mass/Vol] Negative Normal Negative [facility] Comment on above: Order Comment: Speci men Type: URINE SPECIMENOrdering Facility: [facility] Address: [address] [place] [address] Performed By: #### 2 4356-8 ####[facility] LABIA [id number] [place] [address] [place] RBC LM.HPF (Urine sed) [#/Area] 0-2 /HPF Normal 0-2 /HPF [facility] Comment on above: Order Comment: Speci men Type: URINE SPECIMENOrdering Facility: [facility] Address: [address] [place] [address] Performed By: #### 2 4356-8 ####[facility] LABIA [id number] [place] [address] [place] Specific gravity (U) [Rel density] 1.014 Normal 1.005-1.030 [facility] Comment on above: Order Comment: Speci men Type: URINE SPECIMENOrdering Facility: [facility] Address: [address] [place] [address] Performed By: #### 2 4356-8 ####[facility] LABIA [id number] [place] [address] [place] Urobilinogen Ql (U) 0.2 EU/dL Normal 0.2-1.0 EU/dL [facility] Comment on above: Order Comment: Speci men Type: URINE SPECIMENOrdering Facility: [facility] Address: [address] [place] [address] Performed By: #### 2 4356-8 ####[facility] LABIA [id number] [place] [address] [place] WBC LM.HPF (Urine sed) [#/Area] 0-5 /HPF Normal 0-5 /HPF [facility] Comment on above: Order Comment: Speci men Type: URINE SPECIMENOrdering Facility: [facility] Address: [address] [place] [address] Performed By: #### 2 4356-8 ####[facility] LABCLIA [id number] [address] [address] [place] CNOVon 12-04-2022 CNOV Normal [facility] HISTORY PHYSICALon HISTORY PHYSICAL Normal [facility] Basic Metabolic Panelon 11-15 Anion gap [Moles/Vol] 10 mmol/L Normal - [facility] Comment on above: Performed By: #### L IPAS #### [facility] [address] [place] [address] Calcium [Mass/Vol] 8.4 mg/dL Low 8.5-9.9 [facility] Comment on above: Performed By: #### L IPAS #### [facility] [address] [place] [address] Chloride [Moles/Vol] 108 mmol/L Critically high 95-107 [facility] Comment on above: Performed By: #### L IPAS #### [facility] [address] [place] [address] CO2 [Moles/Vol] 23 mmol/L Normal 20-31 [facility] Comment on above: Performed By: #### L IPAS #### [facility] [address] [place] [address] Creatinine [Mass/Vol] 0.64 mg/dL Normal 0.50-0.90 [facility] Comment on above: Performed By: #### L IPAS #### [facility] [address] [place] [address] GFR >60.0 Normal >60 [facility] Comment on above: Result Comment: Pedi [...] secretion. Performed By: #### L IPAS #### [facility] [address] [place] [address] Glucose [Mass/Vol] 86 mg/dL Normal 70-99 [facility] Comment on above: Performed By: #### L IPAS #### [facility] [address] [place] [address] Potassium [Moles/Vol] 3.9 mmol/L Normal 3.4-4.9 [facility] Comment on above: Performed By: #### L IPAS #### [facility] [address] [place] [address] Sodium [Moles/Vol] 141 mmol/L Normal 135-144 [facility] Comment on above: Performed By: #### L IPAS #### [facility] [address] [place] [address] Urea nitrogen [Mass/Vol] 14 mg/dL Normal 6-20 [facility] Comment on above: Performed By: #### L IPAS #### [facility] [address] [place] [address] CBC With Platelet and Differ entialon 12-03-2022 Basophils (Bld) [#/Vol] 0.0 10*3/uL Normal 0.0-0.2 [facility] Comment on above: Performed By: #### C BCWD #### [facility] [address] [place] [address] Basophils/100 WBC (Bld) 0.9 % Normal [facility] Comment on above: Performed By: #### C BCWD #### [facility] [address] [place] [address] Eosinophils (Bld) [#/Vol] 0.2 10*3/uL Normal 0.0-0.7 [facility] Comment on above: Performed By: #### C BCWD #### [facility] [address] [place] [address] Eosinophils/100 WBC (Bld) 5.2 % Normal [facility] Comment on above: Performed By: #### C BCWD #### [facility] [address] [place] [address] Erythrocyte distribution width (RBC) [Ratio] 13.2 % Normal 11.5-14.5 [facility] Comment on above: Performed By: #### C BCWD #### [facility] [address] [place] [address] Hematocrit (Bld) [Volume fraction] 35.9 % Low 37.0-47.0 [facility] Comment on above: Performed By: #### C BCWD #### [facility] [address] [place] [address] Hemoglobin (Bld) [Mass/Vol] 12.3 g/dL Normal 12.0-16.0 [facility] Comment on above: Performed By: #### C BCWD #### [facility] [address] [place] [address] Lymphocytes (Bld) [#/Vol] 1.3 10*3/uL Normal 1.0-4.8 [facility] Comment on above: Performed By: #### C BCWD #### [facility] [address] [place] [address] Lymphocytes/100 WBC (Bld) 38.2 % Normal [facility] Comment on above: Performed By: #### C BCWD #### [facility] [address] [place] [address] MCH (RBC) [Entitic mass] 30.8 pg Normal 27.0-31.3 [facility] Comment on above: Performed By: #### C BCWD #### [facility] [address] [place] [address] MCHC 34.3 % Normal 33.0-37.0 [facility] Comment on above: Performed By: #### C BCWD #### [facility] [address] [place] [address] MCV (RBC) [Entitic vol] 89.8 fL Normal 79.4-94.8 [facility] Comment on above: Performed By: #### C BCWD #### [facility] [address] [place] [address] Monocytes (Bld) [#/Vol] 0.4 10*3/uL Normal 0.2-0.8 [facility] Comment on above: Performed By: #### C BCWD #### [facility] [address] [place] [address] Monocytes/100 WBC (Bld) 10.9 % Normal [facility] Comment on above: Performed By: #### C BCWD #### [facility] [address] [place] [address] Neutrophils (Bld) [#/Vol] 1.5 10*3/uL Normal 1.4-6.5 [facility] Comment on above: Performed By: #### C BCWD #### [facility] [address] [place] [address] Neutrophils/100 WBC (Bld) 44.5 % Normal [facility] Comment on above: Performed By: #### C BCWD #### [facility] [address] [place] [address] Platelets (Bld) [#/Vol] 204 10*3/uL Normal 130-400 [facility] Comment on above: Performed By: #### C BCWD #### [facility] [address] [place] [address] RBC (Bld) [#/Vol] 4.00 10*6/uL Low 4.20-5.40 [facility] Comment on above: Performed By: #### C BCWD #### [facility] [address] [place] [address] WBC (Bld) [#/Vol] 3.3 10*3/uL Low 4.8-10.8 [facility] Comment on above: Performed By: #### C BCWD #### [facility] [address] [place] [address] Basophils (Bld) [#/Vol] 0.0 10*3/uL Normal 0.0-0.2 [facility] Comment on above: Performed By: #### P GLU #### [facility] [address] [place] [address] Basophils/100 WBC (Bld) 0.7 % Normal [facility] Comment on above: Performed By: #### P GLU #### [facility] [address] [place] [address] Eosinophils (Bld) [#/Vol] 0.2 10*3/uL Normal 0.0-0.7 [facility] Comment on above: Performed By: #### P GLU #### [facility] [address] [place] [address] Eosinophils/100 WBC (Bld) 5.9 % Normal [facility] Comment on above: Performed By: #### P GLU #### [facility] [address] [place] [address] Erythrocyte distribution width (RBC) [Ratio] 13.5 % Normal 11.5-14.5 [facility] Comment on above: Performed By: #### P GLU #### [facility] [address] [place] [address] Hematocrit (Bld) [Volume fraction] 33.2 % Low 37.0-47.0 [facility] Comment on above: Performed By: #### P GLU #### [facility] [address] [place] [address] Hemoglobin (Bld) [Mass/Vol] 11.8 g/dL Low 12.0-16.0 [facility] Comment on above: Performed By: #### P GLU #### [facility] [address] [place] [address] Lymphocytes (Bld) [#/Vol] 1.1 10*3/uL Normal 1.0-4.8 [facility] Comment on above: Performed By: #### P GLU #### [facility] [address] [place] [address] Lymphocytes/100 WBC (Bld) 39.5 % Normal [facility] Comment on above: Performed By: #### P GLU #### [facility] [address] [place] [address] MCH (RBC) [Entitic mass] 34.0 pg Critically high 27.0-31.3 [facility] Comment on above: Performed By: #### P GLU #### [facility] [address] [place] [address] MCHC 35.5 % Normal 33.0-37.0 [facility] Comment on above: Performed By: #### P GLU #### [facility] [address] [place] [address] MCV (RBC) [Entitic vol] 95.7 fL Critically high 79.4-94.8 [facility] Comment on above: Performed By: #### P GLU #### [facility] [address] [place] [address] Monocytes (Bld) [#/Vol] 0.3 10*3/uL Normal 0.2-0.8 [facility] Comment on above: Performed By: #### P GLU #### [facility] [address] [place] [address] Monocytes/100 WBC (Bld) 9.1 % Normal [facility] Comment on above: Performed By: #### P GLU #### [facility] [address] [place] [address] Neutrophils (Bld) [#/Vol] 1.3 10*3/uL Low 1.4-6.5 [facility] Comment on above: Performed By: #### P GLU #### [facility] [address] [place] [address] Neutrophils/100 WBC (Bld) 44.5 % Normal [facility] Comment on above: Performed By: #### P GLU #### [facility] [address] [place] [address] Platelets (Bld) [#/Vol] 186 10*3/uL Normal 130-400 [facility] Comment on above: Performed By: #### P GLU #### [facility] [address] [place] [address] RBC (Bld) [#/Vol] 3.47 10*6/uL Low 4.20-5.40 [facility] Comment on above: Performed By: #### P GLU #### [facility] [address] [place] [address] WBC (Bld) [#/Vol] 2.9 10*3/uL Low 4.8-10.8 [facility] Comment on above: Performed By: #### P GLU #### [facility] [address] [place] [address] CNPNon 12-03-2022 CNPN Normal [facility] Magnesiumon 12-03-2022 Magnesium [Mass/Vol] 1.8 mg/dL Normal 1.7-2.4 [facility] Comment on above: Performed By: #### L IPAS #### [facility] [address] [place] [address] POCT Glucoseon 12-03-2022 Glucose [Mass/Vol] 90 mg/dL Normal 70-99 [facility] Comment on above: Performed By: #### P GLU #### [facility] [address] [place] [address] POC Performed on ACCU-CHEK Normal [facility] Comment on above: Performed By: #### P GLU #### [facility] [address] [place] [address] Glucose [Mass/Vol] 101 mg/dL Critically high 70-99 [facility] Comment on above: Performed By: #### L IPAS #### [facility] [address] [place] [address] POC Performed on ACCU-CHEK Normal [facility] Comment on above: Performed By: #### L IPAS #### [facility] [address] [place] [address] Phosphoruson 12-03-2022 Phosphate [Mass/Vol] 3.6 mg/dL Normal 2.3-4.8 [facility] Comment on above: Performed By: #### L IPAS #### [facility] [address] [place] [address] Basic Metabolic Panelon 11-15 Anion gap [Moles/Vol] 6 mmol/L Low 9-15 [facility] Comment on above: Performed By: #### C BCWD #### [facility] [address] [place] [address] Calcium [Mass/Vol] 8.4 mg/dL Low 8.5-9.9 [facility] Comment on above: Performed By: #### C BCWD #### [facility] [address] [place] [address] Chloride [Moles/Vol] 107 mmol/L Normal 95-107 [facility] Comment on above: Performed By: #### C BCWD #### [facility] [address] [place] [address] CO2 [Moles/Vol] 25 mmol/L Normal 20-31 [facility] Comment on above: Performed By: #### C BCWD #### [facility] [address] [place] [address] Creatinine [Mass/Vol] 0.57 mg/dL Normal 0.50-0.90 [facility] Comment on above: Performed By: #### C BCWD #### [facility] [address] [place] [address] GFR >60.0 Normal >60 [facility] Comment on above: Result Comment: Adán [...] secretion. Performed By: #### C BCWD #### [facility] [address] [place] [address] Glucose [Mass/Vol] 104 mg/dL Critically high 70-99 [facility] Comment on above: Performed By: #### C BCWD #### [facility] [address] [place] [address] Potassium [Moles/Vol] 4.0 mmol/L Normal 3.4-4.9 [facility] Comment on above: Performed By: #### C BCWD #### [facility] [address] [place] [address] Sodium [Moles/Vol] 138 mmol/L Normal 135-144 [facility] Comment on above: Performed By: #### C BCWD #### [facility] [address] [place] [address] Urea nitrogen [Mass/Vol] 12 mg/dL Normal 6-20 [facility] Comment on above: Performed By: #### C BCWD #### [facility] [address] [place] [address] CBC With Platelet and Differ entialon 12-02-2022 Anisocytosis Ql (Bld) 1+ Normal [facility] Comment on above: Performed By: #### C BCWD #### [facility] [address] [place] [address] Basophils (Bld) [#/Vol] 0.0 10*3/uL Normal 0.0-0.2 [facility] Comment on above: Performed By: #### C BCWD #### [facility] [address] [place] [address] Basophils/100 WBC (Bld) 1.0 % Normal [facility] Comment on above: Performed By: #### C BCWD #### [facility] [address] [place] [address] Eosinophils (Bld) [#/Vol] 0.2 10*3/uL Normal 0.0-0.7 [facility] Comment on above: Performed By: #### C BCWD #### [facility] [address] [place] [address] Eosinophils/100 WBC (Bld) 9.0 % Normal [facility] Comment on above: Performed By: #### C BCWD #### [facility] [address] [place] [address] Lymphocytes (Bld) [#/Vol] 0.9 10*3/uL Low 1.0-4.8 [facility] Comment on above: Performed By: #### C BCWD #### [facility] [address] [place] [address] Lymphocytes/100 WBC (Bld) 35.0 % Normal [facility] Comment on above: Performed By: #### C BCWD #### [facility] [address] [place] [address] Monocytes (Bld) [#/Vol] 0.1 10*3/uL Low 0.2-0.8 [facility] Comment on above: Performed By: #### C BCWD #### [facility] [address] [place] [address] Monocytes/100 WBC (Bld) 4.6 % Normal [facility] Comment on above: Performed By: #### C BCWD #### [facility] [address] [place] [address] Neutrophils (Bld) [#/Vol] 1.4 10*3/uL Normal 1.4-6.5 [facility] Comment on above: Performed By: #### C BCWD #### [facility] [address] [place] [address] Neutrophils/100 WBC (Bld) 50.0 % Normal [facility] Comment on above: Performed By: #### C BCWD #### [facility] [address] [place] [address] Ovalocytes 1+ Normal [facility] Comment on above: Performed By: #### C BCWD #### [facility] [address] [place] [address] Poikilocytosis 1+ Normal [facility] Comment on above: Performed By: #### C BCWD #### [facility] [address] [place] [address] Erythrocyte distribution width (RBC) [Ratio] 13.3 % Normal 11.5-14.5 [facility] Comment on above: Performed By: #### C BCWD #### [facility] [address] [place] [address] Hematocrit (Bld) [Volume fraction] 34.0 % Low 37.0-47.0 [facility] Comment on above: Performed By: #### C BCWD #### [facility] [address] [place] [address] Hemoglobin (Bld) [Mass/Vol] 11.8 g/dL Low 12.0-16.0 [facility] Comment on above: Performed By: #### C BCWD #### [facility] [address] [place] [address] MCH (RBC) [Entitic mass] 31.3 pg Normal 27.0-31.3 [facility] Comment on above: Performed By: #### C BCWD #### [facility] [address] [place] [address] MCHC 34.7 % Normal 33.0-37.0 [facility] Comment on above: Performed By: #### C BCWD #### [facility] [address] [place] [address] MCV (RBC) [Entitic vol] 90.2 fL Normal 79.4-94.8 [facility] Comment on above: Performed By: #### C BCWD #### [facility] [address] [place] [address] Platelets (Bld) [#/Vol] 201 10*3/uL Normal 130-400 [facility] Comment on above: Performed By: #### C BCWD #### [facility] [address] [place] [address] RBC (Bld) [#/Vol] 3.77 10*6/uL Low 4.20-5.40 [facility] Comment on above: Performed By: #### C BCWD #### [facility] [address] [place] [address] WBC (Bld) [#/Vol] 2.7 10*3/uL Low 4.8-10.8 [facility] Comment on above: Performed By: #### C BCWD #### [facility] [address] [place] [address] Magnesiumon 12-02-2022 Magnesium [Mass/Vol] 1.9 mg/dL Normal 1.7-2.4 [facility] Comment on above: Performed By: #### C BCWD #### [facility] [address] [place] [address] POCT Glucoseon 12-02-2022 Glucose [Mass/Vol] 115 mg/dL Critically high 70-99 [facility] Comment on above: Performed By: #### P GLU #### [facility] [address] [place] [address] POC Performed on ACCU-CHEK Normal [facility] Comment on above: Performed By: #### P GLU #### [facility] [address] [place] [address] Glucose [Mass/Vol] 94 mg/dL Normal 70-99 [facility] Comment on above: Performed By: #### P GLU #### [facility] [address] [place] [address] POC Performed on ACCU-CHEK Normal [facility] Comment on above: Performed By: #### P GLU #### [facility] [address] [place] [address] Glucose [Mass/Vol] 94 mg/dL Normal 70-99 [facility] Comment on above: Performed By: #### P GLU #### [facility] [address] [place] [address] POC Performed on ACCU-CHEK Normal [facility] Comment on above: Performed By: #### P GLU #### [facility] [address] [place] [address] Phosphoruson 12-02-2022 Phosphate [Mass/Vol] 3.7 mg/dL Normal 2.3-4.8 [facility] Comment on above: Performed By: #### P GLU #### [facility] [address] [place] [address] CNPNon 12-01-2022 CNPN Normal [facility] Metabolic Pane nestor 12-01-2022 Albumin [Mass/Vol] 3.7 g/dL Normal 3.5-4.6 [facility] Comment on above: Performed By: #### C BCWD #### [facility] [address] [place] [address] ALP [Catalytic activity/Vol] 62 U/L Normal 40-130 [facility] Comment on above: Performed By: #### C BCWD #### [facility] [address] [place] [address] ALT [Catalytic activity/Vol] 16 U/L Normal 0-33 [facility] Comment on above: Performed By: #### C BCWD #### [facility] [address] [place] [address] Anion gap [Moles/Vol] 7 mmol/L Low 9-15 [facility] Comment on above: Performed By: #### C BCWD #### [facility] [address] [place] [address] AST [Catalytic activity/Vol] 30 U/L Normal 0-35 [facility] Comment on above: Performed By: #### C BCWD #### [facility] [address] [place] [address] Bilirubin [Mass/Vol] 0.3 mg/dL Normal 0.2-0.7 [facility] Comment on above: Performed By: #### C BCWD #### [facility] [address] [place] [address] Calcium [Mass/Vol] 8.3 mg/dL Low 8.5-9.9 [facility] Comment on above: Performed By: #### C BCWD #### [facility] [address] [place] [address] Chloride [Moles/Vol] 106 mmol/L Normal 95-107 [facility] Comment on above: Performed By: #### C BCWD #### [facility] [address] [place] [address] CO2 [Moles/Vol] 23 mmol/L Normal 20-31 [facility] Comment on above: Performed By: #### C BCWD #### [facility] [address] [place] [address] Creatinine [Mass/Vol] 0.66 mg/dL Normal 0.50-0.90 [facility] Comment on above: Performed By: #### C BCWD #### [facility] [address] [place] [address] GFR >60.0 Normal >60 [facility] Comment on above: Result Comment: Pedi [...] secretion. Performed By: #### C BCWD #### [facility] [address] [place] [address] Globulin (S) [Mass/Vol] 2.1 g/dL Low 2.3-3.5 [facility] Comment on above: Performed By: #### C BCWD #### [facility] [address] [place] [address] Glucose [Mass/Vol] 104 mg/dL Critically high 70-99 M [facility] Comment on above: Performed By: #### C BCWD #### [facility] [address] [place] [address] Potassium [Moles/Vol] 3.9 mmol/L Normal 3.4-4.9 [facility] Comment on above: Performed By: #### C BCWD #### [facility] [address] [place] [address] Protein [Mass/Vol] 5.8 g/dL Low 6.3-8.0 [facility] Comment on above: Performed By: #### C BCWD #### [facility] [address] [place] [address] Sodium [Moles/Vol] 136 mmol/L Normal 135-144 [facility] Comment on above: Performed By: #### C BCWD #### [facility] [address] [place] [address] Urea nitrogen [Mass/Vol] 6 mg/dL Normal 6-20 [facility] Comment on above: Performed By: #### C BCWD #### [facility] [address] [place] [address] Magnesiumon 12-01-2022 Magnesium [Mass/Vol] 2.0 mg/dL Normal 1.7-2.4 [facility] Comment on above: Performed By: #### C BCWD #### [facility] [address] [place] [address] POCT Glucoseon 12-01-2022 Glucose [Mass/Vol] 113 mg/dL Critically high 70-99 M [facility] Comment on above: Performed By: #### P GLU #### [facility] [address] [place] [address] POC Performed on ACCU-CHEK Normal [facility] Comment on above: Result Comment: Robby meneses RN or Performed By: #### P GLU #### [facility] [address] [place] [address] Phosphoruson 12-01-2022 Phosphate [Mass/Vol] 3.7 mg/dL Normal 2.3-4.8 [facility] Comment on above: Performed By: #### P GLU #### [facility] [address] [place] [address] Triglycerideson 12-01-2022 Triglyceride [Mass/Vol] 111 mg/dL Normal 0-150 [facility] Comment on above: Result Comment: ATP III Triglycerides Classification is Normal. Performed By: #### T RIG #### [facility] [address] [place] [address] Comprehensive Metabolic Pane nestor 11-30-2022 Albumin [Mass/Vol] 3.5 g/dL Normal 3.5-4.6 [facility] Comment on above: Performed By: #### C BCWD #### [facility] [address] [place] [address] ALP [Catalytic activity/Vol] 45 U/L Normal 40-130 [facility] Comment on above: Performed By: #### C BCWD #### [facility] [address] [place] [address] ALT [Catalytic activity/Vol] 15 U/L Normal 0-33 [facility] Comment on above: Result Comment: Spec imen hemolysis has exceeded the interference as defined by Kamran. Result may be affected. Suggest recollection if clinically indicated. Performed By: #### C BCWD #### [facility] [address] [place] [address] Anion gap [Moles/Vol] 6 mmol/L Low 9-15 [facility] Comment on above: Performed By: #### C BCWD #### [facility] [address] [place] [address] AST [Catalytic activity/Vol] 40 U/L Critically high 0-35 [facility] Comment on above: Result Comment: Spec imen hemolysis has exceeded the interference as defined by Kamran. Value may be falsely increased. Suggest recollection if clinically indicated. Performed By: #### C BCWD #### [facility] [address] [place] [address] Bilirubin [Mass/Vol] 0.3 mg/dL Normal 0.2-0.7 [facility] Comment on above: Performed By: #### C BCWD #### [facility] [address] [place] [address] Calcium [Mass/Vol] 8.3 mg/dL Low 8.5-9.9 [facility] Comment on above: Performed By: #### C BCWD #### [facility] [address] [place] [address] Chloride [Moles/Vol] 107 mmol/L Normal 95-107 [facility] Comment on above: Performed By: #### C BCWD #### [facility] [address] [place] [address] CO2 [Moles/Vol] 23 mmol/L Normal 20-31 [facility] Comment on above: Performed By: #### C BCWD #### [facility] [address] [place] [address] Creatinine [Mass/Vol] 0.69 mg/dL Normal 0.50-0.90 [facility] Comment on above: Performed By: #### C BCWD #### [facility] [address] [place] [address] GFR >60.0 Normal >60 [facility] Comment on above: Result Comment: Adán [...] secretion. Performed By: #### C BCWD #### [facility] [address] [place] [address] Globulin (S) [Mass/Vol] 1.9 g/dL Low 2.3-3.5 [facility] Comment on above: Performed By: #### C BCWD #### [facility] [address] [place] [address] Glucose [Mass/Vol] 86 mg/dL Normal 70-99 [facility] Comment on above: Performed By: #### C BCWD #### [facility] [address] [place] [address] Potassium [Moles/Vol] 4.6 mmol/L Normal 3.4-4.9 [facility] Comment on above: Result Comment: Spec imen hemolysis has exceeded the interference as defined by Kamran. Value may be falsely increased. Suggest recollection if clinically indicated. Performed By: #### C BCWD #### [facility] [address] [place] [address] Protein [Mass/Vol] 5.4 g/dL Low 6.3-8.0 [facility] Comment on above: Performed By: #### C BCWD #### [facility] [address] [place] [address] Sodium [Moles/Vol] 136 mmol/L Normal 135-144 [facility] Comment on above: Performed By: #### C BCWD #### [facility] [address] [place] [address] Urea nitrogen [Mass/Vol] 4 mg/dL Low 6-20 [facility] Comment on above: Performed By: #### C BCWD #### [facility] [address] [place] [address] IR PICC WO SQ PORT/PUMP > 5 [...] and surgical masks. In addition, the primary grade teacher and paralegal assistant donned sterile gowns and gloves after [...] sheath was placed over the guidewire. A 5-Grenadian dual-lumen PICC was advanced through the sheath, [...] Cedrick Billings MD 11/30/22 Final result Normal [facility] Magnesiumon 11-30-2022 Magnesium [Mass/Vol] 1.9 mg/dL Normal 1.7-2.4 [facility] Comment on above: Performed By: #### P GLU #### [facility] [address] [place] [address] Phosphoruson 11-30-2022 Phosphate [Mass/Vol] 3.2 mg/dL Normal 2.3-4.8 [facility] Comment on above: Performed By: #### C BCWD #### [facility] [address] [place] [address] CBC With Platelet and Differ entialon 11-29-2022 Basophils (Bld) [#/Vol] 0.0 10*3/uL Normal 0.0-0.2 [facility] Comment on above: Performed By: #### P GLU #### [facility] [address] [place] [address] Basophils/100 WBC (Bld) 0.6 % Normal [facility] Comment on above: Performed By: #### P GLU #### [facility] [address] [place] [address] Eosinophils (Bld) [#/Vol] 0.1 10*3/uL Normal 0.0-0.7 [facility] Comment on above: Performed By: #### P GLU #### [facility] [address] [place] [address] Eosinophils/100 WBC (Bld) 4.4 % Normal [facility] Comment on above: Performed By: #### P GLU #### [facility] [address] [place] [address] Erythrocyte distribution width (RBC) [Ratio] 13.6 % Normal 11.5-14.5 [facility] Comment on above: Performed By: #### P GLU #### [facility] [address] [place] [address] Hematocrit (Bld) [Volume fraction] 36.4 % Low 37.0-47.0 [facility] Comment on above: Performed By: #### P GLU #### [facility] [address] [place] [address] Hemoglobin (Bld) [Mass/Vol] 12.2 g/dL Normal 12.0-16.0 [facility] Comment on above: Performed By: #### P GLU #### [facility] [address] [place] [address] Lymphocytes (Bld) [#/Vol] 1.3 10*3/uL Normal 1.0-4.8 [facility] Comment on above: Performed By: #### P GLU #### [facility] [address] [place] [address] Lymphocytes/100 WBC (Bld) 41.0 % Normal [facility] Comment on above: Performed By: #### P GLU #### [facility] [address] [place] [address] MCH (RBC) [Entitic mass] 30.9 pg Normal 27.0-31.3 [facility] Comment on above: Performed By: #### P GLU #### [facility] [address] [place] [address] MCHC 33.5 % Normal 33.0-37.0 [facility] Comment on above: Performed By: #### P GLU #### [facility] [address] [place] [address] MCV (RBC) [Entitic vol] 92.2 fL Normal 79.4-94.8 [facility] Comment on above: Performed By: #### P GLU #### [facility] [address] [place] [address] Monocytes (Bld) [#/Vol] 0.3 10*3/uL Normal 0.2-0.8 [facility] Comment on above: Performed By: #### P GLU #### [facility] [address] [place] [address] Monocytes/100 WBC (Bld) 9.8 % Normal [facility] Comment on above: Performed By: #### P GLU #### [facility] [address] [place] [address] Neutrophils (Bld) [#/Vol] 1.4 10*3/uL Normal 1.4-6.5 [facility] Comment on above: Performed By: #### P GLU #### [facility] [address] [place] [address] Neutrophils/100 WBC (Bld) 44.2 % Normal [facility] Comment on above: Performed By: #### P GLU #### [facility] [address] [place] [address] Platelets (Bld) [#/Vol] 242 10*3/uL Normal 130-400 [facility] Comment on above: Performed By: #### P GLU #### [facility] [address] [place] [address] RBC (Bld) [#/Vol] 3.95 10*6/uL Low 4.20-5.40 [facility] Comment on above: Performed By: #### P GLU #### [facility] [address] [place] [address] WBC (Bld) [#/Vol] 3.2 10*3/uL Low 4.8-10.8 [facility] Comment on above: Performed By: #### P GLU #### [facility] [address] [place] [address] Comprehensive Metabolic Pane nestor 11-29-2022 Albumin [Mass/Vol] 3.5 g/dL Normal 3.5-4.6 [facility] Comment on above: Performed By: #### P GLU #### [facility] [address] [place] [address] ALP [Catalytic activity/Vol] 60 U/L Normal 40-130 [facility] Comment on above: Performed By: #### P GLU #### [facility] [address] [place] [address] ALT [Catalytic activity/Vol] 15 U/L Normal 0-33 [facility] Comment on above: Performed By: #### P GLU #### [facility] [address] [place] [address] Anion gap [Moles/Vol] 8 mmol/L Low 9-15 [facility] Comment on above: Performed By: #### P GLU #### [facility] [address] [place] [address] AST [Catalytic activity/Vol] 28 U/L Normal 0-35 [facility] Comment on above: Performed By: #### P GLU #### [facility] [address] [place] [address] Bilirubin [Mass/Vol] mg/dL Normal 0.2-0.7 [facility] Comment on above: Performed By: #### P GLU #### [facility] [address] [place] [address] Calcium [Mass/Vol] 8.4 mg/dL Low 8.5-9.9 [facility] Comment on above: Performed By: #### P GLU #### [facility] [address] [place] [address] Chloride [Moles/Vol] 113 mmol/L Critically high 95-107 [facility] Comment on above: Performed By: #### P GLU #### [facility] [address] [place] [address] CO2 [Moles/Vol] 23 mmol/L Normal 20-31 [facility] Comment on above: Performed By: #### P GLU #### [facility] [address] [place] [address] Creatinine [Mass/Vol] 0.71 mg/dL Normal 0.50-0.90 [facility] Comment on above: Performed By: #### P GLU #### [facility] [address] [place] [address] GFR >60.0 Normal >60 [facility] Comment on above: Result Comment: Adán [...] secretion. Performed By: #### P GLU #### [facility] [address] [place] [address] Globulin (S) [Mass/Vol] 2.2 g/dL Low 2.3-3.5 [facility] Comment on above: Performed By: #### P GLU #### [facility] [address] [place] [address] Glucose [Mass/Vol] 85 mg/dL Normal 70-99 [facility] Comment on above: Performed By: #### P GLU #### [facility] [address] [place] [address] Potassium [Moles/Vol] 4.2 mmol/L Normal 3.4-4.9 [facility] Comment on above: Performed By: #### P GLU #### [facility] [address] [place] [address] Protein [Mass/Vol] 5.7 g/dL Low 6.3-8.0 [facility] Comment on above: Performed By: #### P GLU #### [facility] [address] [place] [address] Sodium [Moles/Vol] 144 mmol/L Normal 135-144 [facility] Comment on above: Performed By: #### P GLU #### [facility] [address] [place] [address] Urea nitrogen [Mass/Vol] 5 mg/dL Low 6-20 [facility] Comment on above: Performed By: #### P GLU #### [facility] [address] [place] [address] Lactic Acidon 11-29-2022 Lactate [Moles/Vol] 0.9 mmol/L Normal 0.5-2.2 [facility] Comment on above: Performed By: #### L IPAS #### [facility] [address] [place] [address] Lipaseon 11-29-2022 Lipase [Catalytic activity/Vol] 48 U/L Normal 12-95 [facility] Comment on above: Performed By: #### L IPAS #### [facility] [address] [place] [address] Magnesiumon 11-29-2022 Magnesium [Mass/Vol] 1.9 mg/dL Normal 1.7-2.4 [facility] Comment on above: Performed By: #### P GLU #### [facility] [address] [place] [address] Partial Thromboplastin Timeo n 11-29-2022 aPTT Coag (Bld) [Time] 33.0 s Normal 24.4-36.8 [facility] Comment on above: Result Comment: Effe ctive 12/20/2019: Heparin Therapeutic Range: 64.0 ? 98.0 seconds. Performed By: #### C BCWD #### [facility] [address] [place] [address] Phosphoruson 11-29-2022 Phosphate [Mass/Vol] 3.3 mg/dL Normal 2.3-4.8 [facility] Comment on above: Performed By: #### C BCWD #### [facility] [address] [place] [address] Prothrombin Timeon INR Coag (PPP) [Relative time] 1.2 {INR} Normal [facility] Comment on above: Performed By: #### P T #### [facility] [address] [place] [address] PT Coag (PPP) [Time] 15.6 s Critically high 12.3-14.9 [facility] Comment on above: Performed By: #### P T #### [facility] [address] [place] [address] Prealbuminon 11-28-2022 Prealbumin [Mass/Vol] 15.0 mg/dL Low 20.0-40.0 [facility] Comment on above: Order Comment: Colle ction has been rescheduled by DUEAS at 11/28/2022 18:15 Reason:Failed attempt at venipuncture Performed By: #### L IPAS #### [facility] [address] [place] [address] Amylaseon 11-27-2022 Amylase [Catalytic activity/Vol] 44 U/L Normal 22-93 [facility] Comment on above: Performed By: #### P GLU #### [facility] [address] [place] [address] CBC With Platelet and Differ entialon 11-27-2022 Basophils (Bld) [#/Vol] 0.0 10*3/uL Normal 0.0-0.2 [facility] Comment on above: Performed By: #### P GLU #### [facility] [address] [place] [address] Basophils/100 WBC (Bld) 0.7 % Normal [facility] Comment on above: Performed By: #### P GLU #### [facility] [address] [place] [address] Eosinophils (Bld) [#/Vol] 0.1 10*3/uL Normal 0.0-0.7 [facility] Comment on above: Performed By: #### P GLU #### [facility] [address] [place] [address] Eosinophils/100 WBC (Bld) 1.4 % Normal [facility] Comment on above: Performed By: #### P GLU #### [facility] [address] [place] [address] Erythrocyte distribution width (RBC) [Ratio] 13.3 % Normal 11.5-14.5 [facility] Comment on above: Performed By: #### P GLU #### [facility] [address] [place] [address] Hematocrit (Bld) [Volume fraction] 38.0 % Normal 37.0-47.0 [facility] Comment on above: Performed By: #### P GLU #### [facility] [address] [place] [address] Hemoglobin (Bld) [Mass/Vol] 12.7 g/dL Normal 12.0-16.0 [facility] Comment on above: Performed By: #### P GLU #### [facility] [address] [place] [address] Lymphocytes (Bld) [#/Vol] 1.4 10*3/uL Normal 1.0-4.8 [facility] Comment on above: Performed By: #### P GLU #### [facility] [address] [place] [address] Lymphocytes/100 WBC (Bld) 32.1 % Normal [facility] Comment on above: Performed By: #### P GLU #### [facility] [address] [place] [address] MCH (RBC) [Entitic mass] 30.6 pg Normal 27.0-31.3 [facility] Comment on above: Performed By: #### P GLU #### [facility] [address] [place] [address] MCHC 33.4 % Normal 33.0-37.0 [facility] Comment on above: Performed By: #### P GLU #### [facility] [address] [place] [address] MCV (RBC) [Entitic vol] 91.6 fL Normal 79.4-94.8 [facility] Comment on above: Performed By: #### P GLU #### [facility] [address] [place] [address] Monocytes (Bld) [#/Vol] 0.3 10*3/uL Normal 0.2-0.8 [facility] Comment on above: Performed By: #### P GLU #### [facility] [address] [place] [address] Monocytes/100 WBC (Bld) 6.0 % Normal [facility] Comment on above: Performed By: #### P GLU #### [facility] [address] [place] [address] Neutrophils (Bld) [#/Vol] 2.6 10*3/uL Normal 1.4-6.5 [facility] Comment on above: Performed By: #### P GLU #### [facility] [address] [place] [address] Neutrophils/100 WBC (Bld) 59.6 % Normal [facility] Comment on above: Performed By: #### P GLU #### [facility] [address] [place] [address] Platelets (Bld) [#/Vol] 238 10*3/uL Normal 130-400 [facility] Comment on above: Performed By: #### P GLU #### [facility] [address] [place] [address] RBC (Bld) [#/Vol] 4.15 10*6/uL Low 4.20-5.40 [facility] Comment on above: Performed By: #### P GLU #### [facility] [address] [place] [address] WBC (Bld) [#/Vol] 4.4 10*3/uL Low 4.8-10.8 [facility] Comment on above: Performed By: #### P GLU #### [facility] [address] [place] [address] [address] ABDOMEN PELVIS W IV CONTR Daljit [...] Iker Ayala MD 11/27/22 Final result Normal [facility] CTA CHEST W WO CONTRASTon CTA [...] Jason Mcrae MD 11/27/22 Final result Normal [facility] Comprehensive Metabolic Pane nestor 11-27-2022 Albumin [Mass/Vol] 4.0 g/dL Normal 3.5-4.6 [facility] Comment on above: Performed By: #### P GLU #### [facility] [facility] [address] [place] [address] ALP [Catalytic activity/Vol] 60 U/L Normal 40-130 [facility] Comment on above: Performed By: #### P GLU #### [facility] [address] [place] [address] ALT [Catalytic activity/Vol] 20 U/L Normal 0-33 [facility] Comment on above: Performed By: #### P GLU #### [facility] [address] [place] [address] Anion gap [Moles/Vol] 10 mmol/L Normal 9-15 [facility] Comment on above: Performed By: #### P GLU #### [facility] [address] [place] [address] AST [Catalytic activity/Vol] 34 U/L Normal 0-35 [facility] Comment on above: Performed By: #### P GLU #### [facility] [address] [place] [address] Bilirubin [Mass/Vol] 0.4 mg/dL Normal 0.2-0.7 [facility] Comment on above: Performed By: #### P GLU #### [facility] [address] [place] [address] Calcium [Mass/Vol] 8.4 mg/dL Low 8.5-9.9 [facility] Comment on above: Performed By: #### P GLU #### [facility] [address] [place] [address] Chloride [Moles/Vol] 108 mmol/L Critically high 95-107 [facility] Comment on above: Performed By: #### P GLU #### [facility] [address] [place] [address] CO2 [Moles/Vol] 20 mmol/L Normal 20-31 [facility] Comment on above: Performed By: #### P GLU #### [facility] [address] [place] [address] Creatinine [Mass/Vol] 0.68 mg/dL Normal 0.50-0.90 [facility] Comment on above: Performed By: #### P GLU #### [facility] [address] [place] [address] GFR >60.0 Normal >60 [facility] Comment on above: Result Comment: Pedi [...] secretion. Performed By: #### P GLU #### [facility] [address] [place] [address] Globulin (S) [Mass/Vol] 2.3 g/dL Normal 2.3-3.5 [facility] Comment on above: Performed By: #### P GLU #### [facility] [address] [place] [address] Glucose [Mass/Vol] 82 mg/dL Normal 70-99 [facility] Comment on above: Performed By: #### P GLU #### [facility] [address] [place] [address] Potassium [Moles/Vol] 3.7 mmol/L Normal 3.4-4.9 [facility] Comment on above: Performed By: #### P GLU #### [facility] [address] [place] [address] Protein [Mass/Vol] 6.3 g/dL Normal 6.3-8.0 [facility] Comment on above: Performed By: #### P GLU #### [facility] [address] [place] [address] Sodium [Moles/Vol] 138 mmol/L Normal 135-144 [facility] Comment on above: Performed By: #### P GLU #### [facility] [address] [place] [address] Urea nitrogen [Mass/Vol] 8 mg/dL Normal 6-20 [facility] Comment on above: Performed By: #### P GLU #### [facility] [address] [place] [address] High Sensitivity Troponin To n 11-27-2022 High Sensitivity Troponin T <6 Normal 0-19 [facility] Comment on above: Result Comment: High Sensitivity Troponin values cannot be compared with other Troponin methodologies. Performed By: #### T RP5 #### [facility] [address] [place] [address] High Sensitivity Troponin T <6 Normal 0-19 [facility] Comment on above: Result Comment: High Sensitivity Troponin values cannot be compared with other Troponin methodologies. Performed By: #### P GLU #### [facility] [address] [place] [address] Lactic Acidon 11-27-2022 Lactate [Moles/Vol] 1.0 mmol/L Normal 0.5-2.2 [facility] Comment on above: Performed By: #### P GLU #### [facility] [address] [place] [address] Lipaseon 11-27-2022 Lipase [Catalytic activity/Vol] 37 U/L Normal 12-95 [facility] Comment on above: Performed By: #### P GLU #### [facility] [address] [place] [address] Magnesiumon 11-27-2022 Magnesium [Mass/Vol] 1.9 mg/dL Normal 1.7-2.4 [facility] Comment on above: Performed By: #### P GLU #### [facility] [address] [place] [address] POCT Venouson 11-27-2022 Creatinine [Mass/Vol] 0.9 mg/dL Normal 0.6-1.2 [facility] Comment on above: Performed By: #### L IPAS #### [facility] [address] [place] [address] GFR >60 Normal >60 [facility] Comment on above: Result Comment: Pedi [...] secretion. Performed By: #### L IPAS #### [facility] [address] [place] [address] POC Performed on SEE BELOW Normal [facility] Comment on above: Result Comment: Perf ormed on POC Performed By: #### L IPAS #### [facility] [address] [place] [address] POC Sample Type KIRA Normal [facility] Comment on above: Performed By: #### L IPAS #### [facility] [address] [place] [address] Urinalysis, reflex to cultur ryder 11-27-2022 Bilirubin Ql (U) Negative Normal Negative [facility] Comment on above: Performed By: #### P GLU #### [facility] [address] [place] [address] Clarity (U) Clear Normal Clear [facility] Comment on above: Performed By: #### P GLU #### [facility] [address] [place] [address] Color (U) Yellow Normal Straw/[place] [facility] Comment on above: Performed By: #### P GLU #### [facility] [address] [place] [address] Glucose Ql (U) Negative Normal Negative [facility] Comment on above: Performed By: #### P GLU #### [facility] [address] [place] [address] Hemoglobin Ql (U) Negative Normal Negative [facility] Comment on above: Performed By: #### P GLU #### [facility] [address] [place] [address] Ketones Ql (U) Negative Normal Negative [facility] Comment on above: Performed By: #### P GLU #### [facility] [address] [place] [address] Leukocyte esterase Test strip Ql (U) Negative Normal Negative [facility] Comment on above: Performed By: #### P GLU #### [facility] [address] [place] [address] Nitrite Ql (U) Negative Normal Negative [facility] Comment on above: Performed By: #### P GLU #### [facility] [address] [place] [address] pH (U) 7.5 [pH] Normal 5.0-9.0 [facility] Comment on above: Performed By: #### P GLU #### [facility] [address] [place] [address] Protein Ql (U) Negative Normal Negative [facility] Comment on above: Performed By: #### P GLU #### [facility] [address] [place] [address] Specific gravity (U) [Rel density] 1.026 Normal 1.005-1.03 [facility] Comment on above: Performed By: #### P GLU #### [facility] [address] [place] [address] Urine Reflexed to Culture Not Indicated Normal [facility] Comment on above: Performed By: #### P GLU #### [facility] [address] [place] [address] Urobilinogen Qn (U) 0.2 {Munir'U}/dL Normal < 2.0 [facility] Comment on above: Performed By: #### P GLU #### [facility] [address] [place] [address] CNNURSEon 11-26-2022 CNNURSE Normal [facility] US MESENTERIC ARTERY CMPLT V LABon 11-26-2022 US MESENTERIC ARTERY CMPLT VAS LAB Normal [facility] Ambulatory Visit Summaryon 1 Ambulatory Visit Summary Normal [address] [place] [facility] [place] [address]- \.br\ Medications\.br\ What How Much When Why [...] hours as needed for Pain Pickup at [id number]\.br\ Pharmacy Information\.br\ [id number]: [address], [place] [id number] [phone]\.br\ Allergies\.br\ NSAIDs (Unknown)\.br\ codeine (unknown)\.br\ Problems\.br\ Ongoing [...] Metabolic syndrome\.br\ PCOS- polycystic ovary syndrome\.br\ \.br\ [facility] CNPNon 11-25-2022 CNPN Normal [facility] Family Medicine Office/Clini c Noteon 11-25-2022 Family Medicine Office/Clinic Note Normal [facility] Comment on above: Result Comment: Elec tronically Signed By: Jaquan Paula\.br\Date and Time Signed: 11/25/22 13:56 EDT Population Healthon 11-25-19 Population Health Normal [facility] Basic metabolic 2000 panelon 11-23-2022 Anion gap [Moles/Vol] 12 mmol/L Normal 11-02 [facility] Comment on above: Order Comment: Speci men Type: BLOOD SPECIMENOrdering Facility: [facility] Address: [address] [place] [address] Performed By: #### 2 4321-2, 77831-5, 83488-2 ####[facility] LABORATORYCLIA [id number] [facility] [place] [address] [place] Calcium [Mass/Vol] 8.4 mg/dL Low 8.5-10.2 [facility] Comment on above: Order Comment: Speci men Type: BLOOD SPECIMENOrdering Facility: [facility] Address: [address] [place] [address] Performed By: #### 2 4321-2, 40476-0, ####[facility] LABORATORYIA [id number] [place] [address] [place] Chloride [Moles/Vol] 107 mmol/L High 97-105 [facility] Comment on above: Order Comment: Speci men Type: BLOOD SPECIMENOrdering Facility: [facility] Address: [address] [place] [address] Performed By: #### 2 4321-2, 16239-7, ####[facility]IA [id number] [facility] [address] [place] CO2 [Moles/Vol] 19 mmol/L Low 22-30 [facility] Comment on above: Order Comment: Speci men Type: BLOOD SPECIMENOrdering Facility: [facility] Address: [address] [place] [address] Performed By: #### 2 4321-2, 22571-0, ####[facility] LABORATORYIA [id number] [place] [address] [place] Creatinine [Mass/Vol] 0.71 mg/dL Normal 0.58-0.96 [facility] Comment on above: Order Comment: Speci men Type: BLOOD SPECIMENOrdering Facility: [facility] Address: [address] [place] [address] Performed By: #### 2 4321-2, 00810-1, ####[facility] LABORATORYIA [id number] [place] [address] [place] Creatinine and Glomerular filtration rate.predicted panel (S/P/Bld) 115 mL/min/1.73m??? Normal >=60 [facility] Comment on above: Order Comment: Geraldo marrero Type: BLOOD SPECIMENOrdering Facility: [facility] Address: [address] [place] [address] Result Comment: Jessica mated Glomerular Filtration Rate [...] actual GFR. Performed By: #### 2 4321-2, 28025-1, ####[facility] LABORATORYCLIA [id number] [facility] [address] [place] Glucose [Mass/Vol] 105 mg/dL High 74-99 [facility] Comment on above: Order Comment: Geraldo marrero Type: BLOOD SPECIMENOrdering Facility: [facility] Address: [address] [place] [address] Result Comment: The [place] [employer] (ADA) provides guidance for cutoff [...] Standards of Medical Care in Diabetes 2016, [place] [employer]. Diabetes Care. 2016.39(Suppl 1). Performed By: #### 2 4321-2, 91891-9, 40231-8 ####[facility] LABORATORYCLIA [id number] [facility] [place] [address] [place] Potassium [Moles/Vol] 3.8 mmol/L Normal 3.7-5.1 [facility] Comment on above: Order Comment: Geraldo men Type: BLOOD SPECIMENOrdering Facility: [facility] Address: [address] [place] [address] Performed By: #### 2 4321-2, 10682-7, ####[facility] LABORATORYCLIA [id number] [place] [address] [place] Sodium [Moles/Vol] 138 mmol/L Normal 136-144 [facility] Comment on above: Order Comment: Speci men Type: BLOOD SPECIMENOrdering Facility: [facility] Address: [address] [place] [address] Performed By: #### 2 4321-2, 87986-4, ####[facility] LABORATORYCLIA [id number] [place] [address] [place] Urea nitrogen [Mass/Vol] 7 mg/dL Normal 7-21 [facility] Comment on above: Order Comment: Speci men Type: BLOOD SPECIMENOrdering Facility: [facility] Address: [address] [place] [address] Performed By: #### 2 4321-2, 18686-4, ####[facility] LABORATORYIA [id number] [place] [address] [place] CASE MGT INIT ASSESon 2022 CASE MGT INIT [facility] CBC panel Auto (Bld)on 11-23 Erythrocyte distribution width (RBC) [Ratio] 13.6 % Normal 11.5-15.0 [facility] Comment on above: Order Comment: Speci men Type: BLOOD SPECIMENOrdering Facility: [facility] Address: [address] [place] [address] Performed By: #### 5 8410-2 ####[facility] LABORATORYCLIA [id number] [place] [address] [place] Hematocrit (Bld) [Volume fraction] 36.4 % Normal 36.0-46.0 [facility] Comment on above: Order Comment: Speci men Type: BLOOD SPECIMENOrdering Facility: [facility] Address: [address] [place] [address] Performed By: #### 5 8410-2 ####[facility]ENTERIA [id number] [place] [address] [place] Hemoglobin (Bld) [Mass/Vol] 11.8 g/dL Normal 11.5-15.5 [facility] Comment on above: Order Comment: Speci men Type: BLOOD SPECIMENOrdering Facility: [facility] Address: [address] [place] [address] Performed By: #### 5 8410-2 ####[facility]ENTERIA [id number] [place] [address] [place] MCH (RBC) [Entitic mass] 30.4 pg Normal 26.0-34.0 [facility] Comment on above: Order Comment: Speci men Type: BLOOD SPECIMENOrdering Facility: [facility] Address: [address] [place] [address] Performed By: #### 5 8410-2 ####[facility] [id number] [place] [address] [place] MCHC (RBC) [Mass/Vol] 32.4 g/dL Normal 30.5-36.0 [facility] Comment on above: Order Comment: Speci men Type: BLOOD SPECIMENOrdering Facility: [facility] Address: [address] [place] [address] Performed By: #### 5 8410-2 ####[facility] [id number] [place] [address] [place] MCV (RBC) [Entitic vol] 93.8 fL Normal 80.0-100.0 [facility] Comment on above: Order Comment: Speci men Type: BLOOD SPECIMENOrdering Facility: [facility] Address: [address] [place] [address] Performed By: #### 5 8410-2 ####[facility] [id number] [place] [id number] [place] Nucleated RBC (Bld) [#/Vol] 10*3/uL Normal <0.01 [facility] Comment on above: Order Comment: Speci men Type: BLOOD SPECIMENOrdering Facility: [facility] Address: [address] [place] [address] Performed By: #### 5 8410-2 ####[facility] LABORATORYCLIA [id number] [place] [address] [place] Platelet mean volume (Bld) [Entitic vol] 10.9 fL Normal 9.0-12.7 [facility] Comment on above: Order Comment: Speci men Type: BLOOD SPECIMENOrdering Facility: [facility] Address: [address] [place] [address] Performed By: #### 5 8410-2 ####[facility] LABORATORYIA [id number] [place] [address] [place] Platelets (Bld) [#/Vol] 217 10*3/uL Normal 150-400 [facility] Comment on above: Order Comment: Speci men Type: BLOOD SPECIMENOrdering Facility: [facility] Address: [address] [place] [address] Performed By: #### 5 8410-2 ####[facility] LABORATORYIA [id number] [place] [address] [place] RBC (Bld) [#/Vol] 3.88 10*6/uL Low 3.90-5.20 [facility] Comment on above: Order Comment: Speci men Type: BLOOD SPECIMENOrdering Facility: [facility] Address: [address] [place] [address] Performed By: #### 5 8410-2 ####[facility] LABORATORYCLIA [id number] [facility] [place] [address] [place] WBC (Bld) [#/Vol] 3.45 10*3/uL Low 3.70-11.00 [facility] Comment on above: Order Comment: Speci men Type: BLOOD SPECIMENOrdering Facility: [facility] Address: [address] [place] [address] Performed By: #### 5 8410-2 ####[facility] LABORATORYCLIA [id number] [facility] [address] [place] CNDSon 11-23-2022 CNDS Normal [facility] CNPNon 11-23-2022 CNPN Normal [facility] CONSULTon 11-23-2022 CONSULT Normal [facility] Hepatic function 2000 panelo n 11-23-2022 Albumin [Mass/Vol] 3.5 g/dL Low 3.9-4.9 [facility] Comment on above: Order Comment: Speci men Type: BLOOD SPECIMENOrdering Facility: [facility] Address: [address] [place] [address] Performed By: #### 2 4321-2, 35077-0, ####[facility] LABORATORYCLIA [id number] [place] [address] [place] ALP [Catalytic activity/Vol] 58 U/L Normal 34-123 [facility] Comment on above: Order Comment: Speci men Type: BLOOD SPECIMENOrdering Facility: [facility] Address: [address] [place] [address] Performed By: #### 2 4321-2, 12106-9, ####[facility] LABORATORYCLIA [id number] [place] [address] [place] ALT [Catalytic activity/Vol] 17 U/L Normal 7-38 [facility] Comment on above: Order Comment: Speci men Type: BLOOD SPECIMENOrdering Facility: [facility] Address: [address] [place] [address] Performed By: #### 2 4321-2, 46534-6, ####[facility] LABORATORYCLIA [id number] [facility] [place] [address] [place] AST [Catalytic activity/Vol] 34 U/L Normal 13-35 [facility] Comment on above: Order Comment: Speci men Type: BLOOD SPECIMENOrdering Facility: [facility] Address: [address] [place] [address] Performed By: #### 2 4321-2, 04440-1, ####[facility] LABORATORYCLIA [id number] [place] [address] [place] Bilirubin [Mass/Vol] 0.4 mg/dL Normal 0.2-1.3 [facility] Comment on above: Order Comment: Speci men Type: BLOOD SPECIMENOrdering Facility: [facility] Address: [address] [place] [address] Performed By: #### 2 4321-2, 80009-6, ####[facility]IA [id number] [place] [address] [place] Bilirubin.conjugate d [Mass/Vol] mg/dL Normal <0.2 [facility] Comment on above: Order Comment: Speci men Type: BLOOD SPECIMENOrdering Facility: [facility] Address: [address] [place] [address] Performed By: #### 2 4321-2, 61814-1, ####[facility]ENTERIA [id number] [place] [id number] [place] Protein [Mass/Vol] 5.9 g/dL Low 6.3-8.0 [facility] Comment on above: Order Comment: Speci men Type: BLOOD SPECIMENOrdering Facility: [facility] Address: [address] [place] [address] Performed By: #### 2 4321-2, 38849-8, ####[facility]ENTERIA [id number] [facility] [address] [place] Magnesium SerPl-mCncon 11-23 Magnesium [Mass/Vol] 1.8 mg/dL Normal 1.7-2.3 [facility] Comment on above: Order Comment: Speci men Type: BLOOD SPECIMENOrdering Facility: [facility] Address: [address] [place] [address] Performed By: #### 2 4321-2, 77944-9, ####[facility] LABORATORYIA [id number] [place] [address] [place] CBC W Auto Differential pane l (Bld)on 11-22-2022 Basophils (Bld) [#/Vol] 0.03 10*3/uL Normal <0.11 [facility] Comment on above: Order Comment: Speci men Type: BLOOD SPECIMENOrdering Facility: [facility] Address: [address] [place] [address] Performed By: #### 5 7021-8 ####[facility] LABORATORYCLIA [id number] [facility] [place] [address] [place] Basophils/100 WBC (Bld) 0.6 % Normal [facility] Comment on above: Order Comment: Speci men Type: BLOOD SPECIMENOrdering Facility: [facility] Address: [address] [place] [address] Performed By: #### 5 7021-8 ####[facility] LABORATORYCLIA [id number] [place] [id number] [place] Differential cell count method Nom (Bld) Auto Normal [facility] Comment on above: Order Comment: Speci men Type: BLOOD SPECIMENOrdering Facility: [facility] Address: [address] [place] [address] Performed By: #### 5 7021-8 ####[facility] LABORATORYIA [id number] [place] [id number] [place] Eosinophils (Bld) [#/Vol] 0.08 10*3/uL Normal <0.46 [facility] Comment on above: Order Comment: Speci men Type: BLOOD SPECIMENOrdering Facility: [facility] Address: [address] [place] [address] Performed By: #### 5 7021-8 ####[facility] LABORATORYCLIA [id number] [place] [id number] [place] Eosinophils/100 WBC (Bld) 1.7 % Normal [facility] Comment on above: Order Comment: Speci men Type: BLOOD SPECIMENOrdering Facility: [facility] Address: [address] [place] [address] Performed By: #### 5 7021-8 ####[facility] LABORATORYCLIA [id number] [place] [address] [place] Erythrocyte distribution width (RBC) [Ratio] 13.4 % Normal 11.5-15.0 [facility] Comment on above: Order Comment: Speci men Type: BLOOD SPECIMENOrdering Facility: [facility] Address: [address] [place] [address] Performed By: #### 5 7021-8 ####[facility] LABORATORYIA [id number] [place] [address] [place] Hematocrit (Bld) [Volume fraction] 40.4 % Normal 36.0-46.0 [facility] Comment on above: Order Comment: Speci men Type: BLOOD SPECIMENOrdering Facility: [facility] Address: [address] [place] [address] Performed By: #### 5 7021-8 ####[facility] [id number] [place] [id number] [place] Hemoglobin (Bld) [Mass/Vol] 13.8 g/dL Normal 11.5-15.5 [facility] Comment on above: Order Comment: Speci men Type: BLOOD SPECIMENOrdering Facility: [facility] Address: [address] [place] [address] Performed By: #### 5 7021-8 ####[facility]IA [id number] [place] [address] [place] Immature granulocytes (Bld) [#/Vol] 10*3/uL Normal <0.10 [facility] Comment on above: Order Comment: Speci men Type: BLOOD SPECIMENOrdering Facility: [facility] Address: [address] [place] [address] Performed By: #### 5 7021-8 ####[facility] [id number] [place] [id number] [place] Immature granulocytes/100 WBC (Bld) 0.2 % Normal [facility] Comment on above: Order Comment: Speci men Type: BLOOD SPECIMENOrdering Facility: [facility] Address: [address] [place] [address] Performed By: #### 5 7021-8 ####[facility] LABORATORYIA [id number] [place] [address] [place] Lymphocytes (Bld) [#/Vol] 2.01 10*3/uL Normal 1.00-4.00 [facility] Comment on above: Order Comment: Speci men Type: BLOOD SPECIMENOrdering Facility: [facility] Address: [address] [place] [address] Performed By: #### 5 7021-8 ####[facility] LABORATORYIA [id number] [place] [address] [place] Lymphocytes/100 WBC (Bld) 42.2 % Normal [facility] Comment on above: Order Comment: Speci men Type: BLOOD SPECIMENOrdering Facility: [facility] Address: [address] [place] [address] Performed By: #### 5 7021-8 ####[facility]ENTERIA [id number] [place] [address] [place] MCH (RBC) [Entitic mass] 31.2 pg Normal 26.0-34.0 [facility] Comment on above: Order Comment: Speci men Type: BLOOD SPECIMENOrdering Facility: [facility] Address: [address] [place] [address] Performed By: #### 5 7021-8 ####[facility] LABORATORYIA [id number] [place] [id number] [place] MCHC (RBC) [Mass/Vol] 34.2 g/dL Normal 30.5-36.0 [facility] Comment on above: Order Comment: Speci men Type: BLOOD SPECIMENOrdering Facility: [facility] Address: [address] [place] [address] Performed By: #### 5 7021-8 ####[facility] LABORATORYIA [id number] [place] [address] [place] MCV (RBC) [Entitic vol] 91.4 fL Normal 80.0-100.0 [facility] Comment on above: Order Comment: Speci men Type: BLOOD SPECIMENOrdering Facility: [facility] Address: [address] [place] [address] Performed By: #### 5 7021-8 ####[facility]ORATORYIA [id number] [place] [address] [place] Monocytes (Bld) [#/Vol] 0.25 10*3/uL Normal <0.87 [facility] Comment on above: Order Comment: Speci men Type: BLOOD SPECIMENOrdering Facility: [facility] Address: [address] [place] [address] Performed By: #### 5 7021-8 ####[facility]ORATORYIA [id number] [place] [address] [place] Monocytes/100 WBC (Bld) 5.3 % Normal [facility] Comment on above: Order Comment: Speci men Type: BLOOD SPECIMENOrdering Facility: [facility] Address: [address] [place] [address] Performed By: #### 5 7021-8 ####[facility] LABORATORYIA [id number] [place] [address] [place] Neutrophils (Bld) [#/Vol] 2.38 10*3/uL Normal 1.45-7.50 [facility] Comment on above: Order Comment: Speci men Type: BLOOD SPECIMENOrdering Facility: [facility] Address: [address] [place] [address] Performed By: #### 5 7021-8 ####[facility] LABORATORYCLIA [id number] [place] [address] [place] Neutrophils/100 WBC (Bld) 50.0 % Normal [facility] Comment on above: Order Comment: Speci men Type: BLOOD SPECIMENOrdering Facility: [facility] Address: [address] [place] [address] Performed By: #### 5 7021-8 ####[facility]ORATORYIA [id number] [place] [address] [place] Nucleated RBC (Bld) [#/Vol] 10*3/uL Normal <0.01 [facility] Comment on above: Order Comment: Speci men Type: BLOOD SPECIMENOrdering Facility: [facility] Address: [address] [place] [address] Performed By: #### 5 7021-8 ####[facility] LABORATORYCLIA [id number] [place] [address] [place] Nucleated RBC/100 WBC (Bld) [Ratio] 0.0 /100 WBC Normal [facility] Comment on above: Order Comment: Speci men Type: BLOOD SPECIMENOrdering Facility: [facility] Address: [address] [place] [address] Performed By: #### 5 7021-8 ####[facility]ATORYIA [id number] [place] [address] [place] Platelet mean volume (Bld) [Entitic vol] 11.1 fL Normal 9.0-12.7 [facility] Comment on above: Order Comment: Speci men Type: BLOOD SPECIMENOrdering Facility: [facility] Address: [address] [place] [address] Performed By: #### 5 7021-8 ####[facility]IA [id number] [place] [address] [place] Platelets (Bld) [#/Vol] 282 10*3/uL Normal 150-400 [facility] Comment on above: Order Comment: Speci men Type: BLOOD SPECIMENOrdering Facility: [facility] Address: [address] [place] [address] Performed By: #### 5 7021-8 ####[facility]ATORYIA [id number] [place] [address] [place] RBC (Bld) [#/Vol] 4.42 10*6/uL Normal 3.90-5.20 [facility] Comment on above: Order Comment: Speci men Type: BLOOD SPECIMENOrdering Facility: [facility] Address: [address] [place] [address] Performed By: #### 5 7021-8 ####[facility] LABORATORYCLIA [id number] [facility] [place] [address] [place] WBC (Bld) [#/Vol] 4.76 10*3/uL Normal 3.70-11.00 [facility] Comment on above: Order Comment: Speci men Type: BLOOD SPECIMENOrdering Facility: [facility] Address: [address] [place] [address] Performed By: #### 5 7021-8 ####[facility]ORATORYIA [id number] [facility] [place] [address] [place] ABD/PEL W IVCONon 023 CT ABD/PEL W IVCON Normal [facility] Comprehensive metabolic 2000 panelon 11-22-2022 Albumin [Mass/Vol] 4.4 g/dL Normal 3.9-4.9 [facility] Comment on above: Order Comment: Speci men Type: BLOOD SPECIMENOrdering Facility: [facility] Address: [address] [place] [address] Performed By: #### 1 9123-9, 57070-9, 3040-3 ####[facility]IA [id number] [place] [address] [place] ALP [Catalytic activity/Vol] 73 U/L Normal 34-123 [facility] Comment on above: Order Comment: Speci men Type: BLOOD SPECIMENOrdering Facility: [facility] Address: [address] [place] [address] Performed By: #### 1 9123-9, 20225-9, 0-3 ####[facility] LABORATORYCLIA [id number] [facility] [place] [place] [address] [place] ALT [Catalytic activity/Vol] 21 U/L Normal 7-38 [facility] Comment on above: Order Comment: Speci men Type: BLOOD SPECIMENOrdering Facility: [facility] Address: [address] [place] [address] Performed By: #### 1 9123-9, 32509-5, 3040-3 ####[facility] LABORATORYCLIA [id number] [place] [address] [place] Anion gap [Moles/Vol] 11 mmol/L Normal 9-18 [facility] Comment on above: Order Comment: Speci men Type: BLOOD SPECIMENOrdering Facility: [facility] Address: [address] [place] [address] Performed By: #### 1 9123-9, 68116-3, 3040-3 ####[facility] LABORATORYCLIA [id number] [place] [address] [place] AST [Catalytic activity/Vol] 39 U/L High 13-35 [facility] Comment on above: Order Comment: Speci men Type: BLOOD SPECIMENOrdering Facility: [facility] Address: [address] [place] [address] Performed By: #### 1 9123-9, 29854-7, 3040-3 ####[facility] LABORATORYCLIA [id number] [place] [address] [place] Bilirubin [Mass/Vol] 0.3 mg/dL Normal 0.2-1.3 [facility] Comment on above: Order Comment: Speci men Type: BLOOD SPECIMENOrdering Facility: [facility] Address: [address] [place] [address] Performed By: #### 1 9123-9, 24634-2, 0-3 ####[facility] LABORATORYCLIA [id number] [place] [address] [place] Calcium [Mass/Vol] 8.7 mg/dL Normal 8.5-10.2 [facility] Comment on above: Order Comment: Speci men Type: BLOOD SPECIMENOrdering Facility: [facility] Address: [address] [place] [address] Performed By: #### 1 9123-9, 61057-1, 3040-3 ####[facility] LABORATORYCLIA [id number] [place] [address] [place] Chloride [Moles/Vol] 106 mmol/L High 97-105 [facility] Comment on above: Order Comment: Speci men Type: BLOOD SPECIMENOrdering Facility: [facility] Address: [address] [place] [address] Performed By: #### 1 9123-9, 65052-1, 0-3 ####[facility] LABORATORYCLIA [id number] [facility] [address] [place] CO2 [Moles/Vol] 22 mmol/L Normal 22-30 [facility] Comment on above: Order Comment: Speci men Type: BLOOD SPECIMENOrdering Facility: [facility] Address: [address] [place] [address] Performed By: #### 1 9123-9, 86556-5, 3 ####[facility]ATORYIA [id number] [place] [address] [place] Creatinine [Mass/Vol] 0.80 mg/dL Normal 0.58-0.96 [facility] Comment on above: Order Comment: Speci men Type: BLOOD SPECIMENOrdering Facility: [facility] Address: [address] [place] [address] Performed By: #### 1 9123-9, 38162-2, 3 ####[facility]ORATORYIA [id number] [place], [place] [address] [place] [address] OF [facility] Creatinine and Glomerular filtration rate.predicted panel (S/P/Bld) 100 mL/min/1.73m??? Normal >=60 [facility] Comment on above: Order Comment: Speci men Type: BLOOD SPECIMENOrdering Facility: [facility] Address: [address] [place] [address] Result Comment: Jessica mated Glomerular Filtration Rate [...] actual GFR. Performed By: #### 1 9123-9, 08890-7, 0-3 ####[facility]ENTERIA [id number] [place] [address] [place] Glucose [Mass/Vol] 88 mg/dL Normal 74-99 [facility] Comment on above: Order Comment: Speci men Type: BLOOD SPECIMENOrdering Facility: [facility] Address: [address] [place] [address] Result Comment: The [place] [employer] (ADA) provides guidance for cutoff [...] Standards of Medical Care in Diabetes 2016, [place] [employer]. Diabetes Care. 2016.39(Suppl 1). Performed By: #### 1 9123-9, 63168-1, 3040-3 ####[facility]ENTERIA [id number] [place] [address] [place] Potassium [Moles/Vol] 3.9 mmol/L Normal 3.7-5.1 [facility] Comment on above: Order Comment: Speci men Type: BLOOD SPECIMENOrdering Facility: [facility] Address: [address] [place] [address] Performed By: #### 1 9123-9, 34694-1, 3040-3 ####[facility]IA [id number] [place] [address] [place] Protein [Mass/Vol] 7.1 g/dL Normal 6.3-8.0 [facility] Comment on above: Order Comment: Speci men Type: BLOOD SPECIMENOrdering Facility: [facility] Address: [address] [place] [address] Performed By: #### 1 9123-9, 22420-9, 3040-3 ####[facility]IA [id number] [facility] [place] [address] [place] Sodium [Moles/Vol] 139 mmol/L Normal 136-144 [facility] Comment on above: Order Comment: Speci men Type: BLOOD SPECIMENOrdering Facility: [facility] Address: [address] [place] [address] Performed By: #### 1 9123-9, 43993-0, 3040-3 ####[facility]ENTERCLIA [id number] [place] [address] [place] Urea nitrogen [Mass/Vol] 8 mg/dL Normal 7-21 [facility] Comment on above: Order Comment: Speci men Type: BLOOD SPECIMENOrdering Facility: [facility] Address: [address] [place] [address] Performed By: #### 1 9123-9, 37172-8, 3040-3 ####[facility]IA [id number] [facility] [place] [address] [place] ECG COMPLETEon 11-22-2022 ECG COMPLETE Normal [facility] ED NOTEon 11-22-2022 ED NOTE HNO ID: [id number] Author: Lady Garza RN Service: Emergency Medicine Author Type: Registered Nurse Type: ED Notes Filed: 11/22/2022 3:21 PM Note Text: Report to [facility] PRICE Normal [facility] ED PROV NOTEon 11-22-2022 ED PROV NOTE Normal [facility] HISTORY PHYSICALon HISTORY PHYSICAL Normal [facility] pital Lipase SerPl-cCncon 11-23-19 23 Lipase [Catalytic activity/Vol] 45 U/L Normal 16-61 [facility] Comment on above: Order Comment: Speci men Type: BLOOD SPECIMENOrdering Facility: [facility] Address: [address] [place] [address] Performed By: #### 1 9123-9, 56632-0, 3040-3 ####[facility]ORATORYIA [id number] [facility] [place] [address] [place] Magnesium SerPl-mCncon 11-22 Magnesium [Mass/Vol] 1.9 mg/dL Normal 1.7-2.3 [facility] Comment on above: Order Comment: Speci men Type: BLOOD SPECIMENOrdering Facility: [facility] Address: [address] [place] [address] Performed By: #### 1 9123-9, 48979-1, 3040-3 ####[facility]IA [id number] [place] [address] [place] NURSING PROGon 11-22-2022 NURSING PROG Normal [facility] Urinalysis complete panel (U )on 11-22-2022 Bilirubin Ql (U) Negative Normal Negative [facility] p[facility]i Comment on above: Order Comment: Speci men Type: URINE SPECIMENOrdering Facility: [facility] Address: [address] [place] [address] Performed By: #### 2 4356-8 ####[facility] [id number] [place] [address] [place] Clarity (Unsp spec) Clear Normal Clear [facility] Comment on above: Order Comment: Speci men Type: URINE SPECIMENOrdering Facility: [facility] Address: [address] [place] [address] Performed By: #### 2 4356-8 ####[facility] [id number] [place] [address] [place] Color (U) Light Yellow Normal yellow [facility] Comment on above: Order Comment: Speci men Type: URINE SPECIMENOrdering Facility: [facility] Address: [address] [place] [address] Performed By: #### 2 4356-8 ####[facility] [id number] [place] [address] [place] Epithelial cells LM.HPF (Urine sed) [#/Area] Few Normal [facility] Comment on above: Order Comment: Speci men Type: URINE SPECIMENOrdering Facility: [facility] Address: [address] [place] [address] Performed By: #### 2 4356-8 ####[facility] LABORATORYIA [id number] [place] [address] [place] Glucose Test strip (U) [Mass/Vol] Negative Normal Trace, Negative [facility] Comment on above: Order Comment: Speci men Type: URINE SPECIMENOrdering Facility: [facility] Address: [address] [place] [address] Performed By: #### 2 4356-8 ####[facility]IA [id number] [place] [address] [place] Hemoglobin Ql (U) Negative Normal Negative, Trace [facility] Comment on above: Order Comment: Speci men Type: URINE SPECIMENOrdering Facility: [facility] Address: [address] [place] [address] Performed By: #### 2 4356-8 ####[facility]IA [id number] [place] [address] [place] Ketones Ql (U) Negative Normal Negative, Trace [facility] Comment on above: Order Comment: Speci men Type: URINE SPECIMENOrdering Facility: [facility] Address: [address] [place] [address] Performed By: #### 2 4356-8 ####[facility]IA [id number] [place] [address] [place] Leukocyte esterase Test strip Ql (U) Negative Normal Negative, 25 Patito/uL [facility] Comment on above: Order Comment: Speci men Type: URINE SPECIMENOrdering Facility: [facility] Address: [address] [place] [address] Performed By: #### 2 4356-8 ####[facility]IA [id number] [place] [address] [place] Nitrite Ql (U) Negative Normal Negative [facility] Comment on above: Order Comment: Speci men Type: URINE SPECIMENOrdering Facility: [facility] Address: [address] [place] [address] Performed By: #### 2 4356-8 ####[facility] [id number] [place] [address] [place] pH (U) 7.0 [pH] Normal 5.0-8.0 [facility] Comment on above: Order Comment: Speci men Type: URINE SPECIMENOrdering Facility: [facility] Address: [address] [place] [address] Performed By: #### 2 4356-8 ####[facility] [id number] [place] [address] [place] Protein (U) [Mass/Vol] Negative Normal Trace, Negative [facility] Comment on above: Order Comment: Speci men Type: URINE SPECIMENOrdering Facility: [facility] Address: [address] [place] [address] Performed By: #### 2 4356-8 ####[facility] [id number] [place] [address] [place] RBC LM.HPF (Urine sed) [#/Area] 0-3 /HPF Normal 0-3 /HPF [facility] Comment on above: Order Comment: Speci men Type: URINE SPECIMENOrdering Facility: [facility] Address: [address] [place] [address] Performed By: #### 2 4356-8 ####[facility] [id number] [place] [address] [place] Specific gravity (U) [Rel density] 1.020 Normal 1.005-1.030 [facility] Comment on above: Order Comment: Speci men Type: URINE SPECIMENOrdering Facility: [facility] Address: [address] [place] [address] Performed By: #### 2 4356-8 ####[facility] [id number] [place] [address] [place] Urobilinogen Ql (U) Normal Normal Negative [facility] Comment on above: Order Comment: Speci men Type: URINE SPECIMENOrdering Facility: [facility] Address: [address] [place] [address] Performed By: #### 2 4356-8 ####[facility] LABORATORYCLIA [id number] [place] [address] [place] WBC LM.HPF (Urine sed) [#/Area] 0-5 /HPF Normal 0-5 /HPF [facility] Comment on above: Order Comment: Speci men Type: URINE SPECIMENOrdering Facility: [facility] Address: [address] [place] [address] Performed By: #### 2 4356-8 ####[facility] LABORATORYCLIA [id number] [place] [address] [place] XR CHEST 2V FRONTAL/LATon XR CHEST 2V FRONTAL/LAT Normal [facility] CNPNon 11-20-2022 CNPN Normal [facility] Basic metabolic 2000 panelon 11-19-2022 Anion gap [Moles/Vol] 11 mmol/L Normal 9-18 [facility] Comment on above: Order Comment: Speci men Type: BLOOD SPECIMENOrdering Facility: [facility] Address: [address] [place] [address] Performed By: #### 1 9123-9, 21479-2, 2776-02 ####[facility] LABORATORYCLIA [id number] [place] [address] [place] Calcium [Mass/Vol] 8.9 mg/dL Normal 8.5-10.2 [facility] Comment on above: Order Comment: Speci men Type: BLOOD SPECIMENOrdering Facility: [facility] Address: [address] [place] [address] Performed By: #### 1 9123-9, 44015-2, 2776- ####[facility]ORYCL[facility] [id number] [place] [address] [place] Chloride [Moles/Vol] 104 mmol/L Normal 97-105 [facility] Comment on above: Order Comment: Speci men Type: BLOOD SPECIMENOrdering Facility: [facility] Address: [address] [place] [address] Performed By: #### 1 9123-9, 06743-4, 2776-02 ####[facility]ORYCLIA [id number] [place] [address] [place] CO2 [Moles/Vol] 25 mmol/L Normal 22-30 [facility] Comment on above: Order Comment: Speci men Type: BLOOD SPECIMENOrdering Facility: [facility] Address: [address] [place] [address] Performed By: #### 1 9123-9, 94687-9, 2776-02 ####[facility]ORYCLIA [id number] [place] [address] [place] Creatinine [Mass/Vol] 0.82 mg/dL Normal 0.58-0.96 [facility] Comment on above: Order Comment: Speci men Type: BLOOD SPECIMENOrdering Facility: [facility] Address: [address] [place] [address] Performed By: #### 1 9123-9, 72476-7, 2776-02 ####[facility]ATORYCLIA [id number] [address] Creatinine and Glomerular filtration rate.predicted panel (S/P/Bld) 97 mL/min/1.73m??? Normal >=60 [facility] Comment on above: Order Comment: Speci men Type: BLOOD SPECIMENOrdering Facility: [facility] Address: [address] [place] [address] Result Comment: Jessica mated Glomerular Filtration Rate [...] actual GFR. Performed By: #### 1 9123-9, 85718-7, 2776-02 ####[facility] LABORATORYCLIA [id number] [place] [address] [place] Glucose [Mass/Vol] 80 mg/dL Normal 74-99 [facility] Comment on above: Order Comment: Speci men Type: BLOOD SPECIMENOrdering Facility: [facility] Address: [address] [place] [address] Result Comment: The [place] Diabetes [employer] (ADA) provides guidance for cutoff [...] Standards of Medical Care in Diabetes 2016, [place] [employer]. Diabetes Care. 2016.39(Suppl 1). Performed By: #### 1 9123-9, 47010-9, 2776-02 ####[facility]ORYCLIA [id number] [place] [address] [place] Potassium [Moles/Vol] 4.2 mmol/L Normal 3.7-5.1 [facility] Comment on above: Order Comment: Speci men Type: BLOOD SPECIMENOrdering Facility: [facility] Address: [address] [place] [address] Performed By: #### 1 9123-9, , 2776-02 ####[facility]ORYCLIA [id number] [place] [address] [place] Sodium [Moles/Vol] 140 mmol/L Normal 136-144 [facility] Comment on above: Order Comment: Speci men Type: BLOOD SPECIMENOrdering Facility: [facility] Address: [address] [place] [address] Performed By: #### 1 9123-9, 36069-0, 2776-02 ####[facility]ORYCLIA [id number] [place] [address] [place] Urea nitrogen [Mass/Vol] 6 mg/dL Low 7-21 [facility] Comment on above: Order Comment: Speci men Type: BLOOD SPECIMENOrdering Facility: [facility] Address: [address] [place] [address] Performed By: #### 1 9123-9, 32783-7, 2777-1 ####[facility] LABORATORYCLIA [id number] [address] [place] CBC panel Auto (Bld)on 11-19 Erythrocyte distribution width (RBC) [Ratio] 13.2 % Normal 11.5-15.0 [facility] Comment on above: Order Comment: Speci men Type: BLOOD SPECIMENOrdering Facility: [facility] Address: [address] [place] [address] Performed By: #### 5 8410-2 ####[facility] LABORATORYCLIA [id number] [address] Hematocrit (Bld) [Volume fraction] 36.3 % Normal 36.0-46.0 [facility] Comment on above: Order Comment: Speci men Type: BLOOD SPECIMENOrdering Facility: [facility] Address: [address] [place] [address] Performed By: #### 5 8410-2 ####[facility] LABORATORYCLIA [id number] [address] [place] Hemoglobin (Bld) [Mass/Vol] 12.4 g/dL Normal 11.5-15.5 [facility] Comment on above: Order Comment: Speci men Type: BLOOD SPECIMENOrdering Facility: [facility] Address: [address] [place] [address] Performed By: #### 5 8410-2 ####[facility] LABORATORYCLIA [id number] [address] [place] MCH (RBC) [Entitic mass] 30.4 pg Normal 26.0-34.0 [facility] Comment on above: Order Comment: Speci men Type: BLOOD SPECIMENOrdering Facility: [facility] Address: [address] [place] [address] Performed By: #### 5 8410-2 ####[facility] LABORATORYCLIA [id number] [address] [place] MCHC (RBC) [Mass/Vol] 34.2 g/dL Normal 30.5-36.0 [facility] Comment on above: Order Comment: Speci men Type: BLOOD SPECIMENOrdering Facility: [facility] Address: [address] [place] [address] Performed By: #### 5 8410-2 ####[facility] LABORATORYCLIA [id number] [place] [id number] [place] MCV (RBC) [Entitic vol] 89.0 fL Normal 80.0-100.0 [facility] Comment on above: Order Comment: Speci men Type: BLOOD SPECIMENOrdering Facility: [facility] Address: [address] [place] [address] Performed By: #### 5 8410-2 ####[facility] LABORATORYCLIA [id number] [place] [address] [place] Nucleated RBC (Bld) [#/Vol] 10*3/uL Normal <0.01 [facility] Comment on above: Order Comment: Speci men Type: BLOOD SPECIMENOrdering Facility: [facility] Address: [address] [place] [address] Performed By: #### 5 8410-2 ####[facility]ORATORYCLIA [id number] [place] [address] [place] Platelet mean volume (Bld) [Entitic vol] 11.3 fL Normal 9.0-12.7 [facility] Comment on above: Order Comment: Speci men Type: BLOOD SPECIMENOrdering Facility: [facility] Address: [address] [place] [address] Performed By: #### 5 8410-2 ####[facility] LABORATORYCLIA [id number] [place] [address] [place] Platelets (Bld) [#/Vol] 239 10*3/uL Normal 150-400 [facility] Comment on above: Order Comment: Speci men Type: BLOOD SPECIMENOrdering Facility: [facility] Address: [address] [place] [address] Performed By: #### 5 8410-2 ####[facility] LABORATORYCLIA [id number] [place] [address] [place] RBC (Bld) [#/Vol] 4.08 10*6/uL Normal 3.90-5.20 [facility] Comment on above: Order Comment: Speci men Type: BLOOD SPECIMENOrdering Facility: [facility] Address: [address] [place] [address] Performed By: #### 5 8410-2 ####[facility] LABORATORYCLIA [id number] [place] [address] [place] WBC (Bld) [#/Vol] 2.99 10*3/uL Low 3.70-11.00 [facility] Comment on above: Order Comment: Speci men Type: BLOOD SPECIMENOrdering Facility: [facility] Address: [address] [place] [address] Performed By: #### 5 8410-2 ####[facility] LABORATORYCLIA [id number] [address] [place] CNDSon 11-19-2022 CNDS Normal [facility] 11-19 Magnesium [Mass/Vol] 1.9 mg/dL Normal 1.7-2.3 [facility] Comment on above: Order Comment: Speci men Type: BLOOD SPECIMENOrdering Facility: [facility] Address: [address] [place] [address] Performed By: #### 1 9123-9, 40298-3, 2777-1 ####[facility] LABORATORYCLIA [id number] [place] [address] [place] NURSING PROGon 11-19-2022 NURSING PROG Normal [facility] Phosphate SerPl-mCncon 11-19 Phosphate [Mass/Vol] 4.1 mg/dL Normal 2.7-4.8 [facility] Comment on above: Order Comment: Speci men Type: BLOOD SPECIMENOrdering Facility: [facility] Address: [address] [place] [address] Performed By: #### 1 9123-9, 73695-8, 2777-1 ####[facility] LABORATORYCLIA [id number] [place] [address] [place] Basic metabolic 2000 panelon 11-18-2022 Anion gap [Moles/Vol] 10 mmol/L Normal 9-18 [facility] Comment on above: Order Comment: Speci men Type: BLOOD SPECIMENOrdering Facility: [facility] Address: [address] [place] [address] Performed By: #### 2 4321-2 ####[facility]ORATORYCLIA [id number] [place] [address] [place] Calcium [Mass/Vol] 8.8 mg/dL Normal 8.5-10.2 [facility] Comment on above: Order Comment: Speci men Type: BLOOD SPECIMENOrdering Facility: [facility] Address: [address] [place] [address] Performed By: #### 2 4321-2 ####[facility]ORATORYCLIA [id number] [place] [address] [place] Chloride [Moles/Vol] 105 mmol/L Normal 97-105 [facility] Comment on above: Order Comment: Speci men Type: BLOOD SPECIMENOrdering Facility: [facility] Address: [address] [place] [address] Performed By: #### 2 4321-2 ####[facility]ORATORYCLIA [id number] [place] [address] [place] CO2 [Moles/Vol] 22 mmol/L Normal 22-30 [facility] Comment on above: Order Comment: Speci men Type: BLOOD SPECIMENOrdering Facility: [facility] Address: [address] [place] [address] Performed By: #### 2 4321-2 ####[facility]ORATORYCLIA [id number] [place] [address] [place] Creatinine [Mass/Vol] 0.61 mg/dL Normal 0.58-0.96 [facility] Comment on above: Order Comment: Speci men Type: BLOOD SPECIMENOrdering Facility: [facility] Address: [address] [place] [address] Performed By: #### 2 4321-2 ####[facility]ORATORYCLIA [id number] [place] [address] [place] Creatinine and Glomerular filtration rate.predicted panel (S/P/Bld) 121 mL/min/1.73m??? Normal >=60 [facility] Comment on above: Order Comment: Geraldo marrero Type: BLOOD SPECIMENOrdering Facility: [facility] Address: [address] [place] [address] Result Comment: Jessica mated Glomerular Filtration Rate [...] actual GFR. Performed By: #### 2 4321-2 ####[facility]ORATORYCLIA [id number] [place] [address] [place] Glucose [Mass/Vol] 115 mg/dL High 74-99 [facility] Comment on above: Order Comment: Geraldo marrero Type: BLOOD SPECIMENOrdering Facility: [facility] Address: [address] [place] [address] Result Comment: The [place] [employer] (ADA) provides guidance for cutoff [...] Standards of Medical Care in Diabetes 2016, [place] [employer]. Diabetes Care. 2016.39(Suppl 1). Performed By: #### 2 4321-2 ####[facility]ORATORYCLIA [id number] [place] [address] [place] Potassium [Moles/Vol] 4.2 mmol/L Normal 3.7-5.1 [facility] Comment on above: Order Comment: Speci men Type: BLOOD SPECIMENOrdering Facility: [facility] Address: [address] [place] [address] Performed By: #### 2 4321-2 ####[facility]ORATORYCLIA [id number] [place] [address] [place] Sodium [Moles/Vol] 137 mmol/L Normal 136-144 [facility] Comment on above: Order Comment: Speci men Type: BLOOD SPECIMENOrdering Facility: [facility] Address: [address] [place] [address] Performed By: #### 2 4321-2 ####[facility] LABORATORYCLIA [id number] [place] [address] [place] Urea nitrogen [Mass/Vol] 6 mg/dL Low 7-21 [facility] Comment on above: Order Comment: Speci men Type: BLOOD SPECIMENOrdering Facility: [facility] Address: [address] [place] [address] Performed By: #### 2 4321-2 ####[facility] LABORATORYCLIA [id number] [place] [address] [place] CASE MGT INIT ASSESon 2022 CASE MGT INIT ASS Normal [facility] CBC panel Auto (Bld)on 11-18 Erythrocyte distribution width (RBC) [Ratio] 13.0 % Normal 11.5-15.0 [facility] Comment on above: Order Comment: Speci men Type: BLOOD SPECIMENOrdering Facility: [facility] Address: [address] [place] [address] Performed By: #### 5 8410-2 ####[facility] LABORATORYCLIA [id number] [address] [place] Hematocrit (Bld) [Volume fraction] 35.7 % Low 36.0-46.0 [facility] Comment on above: Order Comment: Speci men Type: BLOOD SPECIMENOrdering Facility: [facility] Address: [address] [place] [address] Performed By: #### 5 8410-2 ####[facility]ORATORYCLIA [id number] [address] [place] Hemoglobin (Bld) [Mass/Vol] 12.3 g/dL Normal 11.5-15.5 [facility] Comment on above: Order Comment: Speci men Type: BLOOD SPECIMENOrdering Facility: [facility] Address: [address] [place] [address] Performed By: #### 5 8410-2 ####[facility] LABORATORYCLIA [id number] [address] MCH (RBC) [Entitic mass] 31.1 pg Normal 26.0-34.0 [facility] Comment on above: Order Comment: Speci men Type: BLOOD SPECIMENOrdering Facility: [facility] Address: [address] [place] [address] Performed By: #### 5 8410-2 ####[facility] LABORATORYCLIA [id number] [address] MCHC (RBC) [Mass/Vol] 34.5 g/dL Normal 30.5-36.0 [facility] Comment on above: Order Comment: Speci men Type: BLOOD SPECIMENOrdering Facility: [facility] Address: [address] [place] [address] Performed By: #### 5 8410-2 ####[facility]ORATORYCLIA [id number] [address] [place] MCV (RBC) [Entitic vol] 90.2 fL Normal 80.0-100.0 [facility] Comment on above: Order Comment: Speci men Type: BLOOD SPECIMENOrdering Facility: [facility] Address: [address] [place] [address] Performed By: #### 5 8410-2 ####[facility] LABORATORYCLIA [id number] [address] Nucleated RBC (Bld) [#/Vol] 10*3/uL Normal <0.01 [facility] Comment on above: Order Comment: Speci men Type: BLOOD SPECIMENOrdering Facility: [facility] Address: [address] [place] [address] Performed By: #### 5 8410-2 ####[facility] LABORATORYCLIA [id number] [place] [address] [place] Platelet mean volume (Bld) [Entitic vol] 11.2 fL Normal 9.0-12.7 [facility] Comment on above: Order Comment: Speci men Type: BLOOD SPECIMENOrdering Facility: [facility] Address: [address] [place] [address] Performed By: #### 5 8410-2 ####[facility] LABORATORYCLIA [id number] [place] [address] [place] Platelets (Bld) [#/Vol] 214 10*3/uL Normal 150-400 [facility] Comment on above: Order Comment: Speci men Type: BLOOD SPECIMENOrdering Facility: [facility] Address: [address] [place] [address] Performed By: #### 5 8410-2 ####[facility]ORATORYCLIA [id number] [place] [address] [place] RBC (Bld) [#/Vol] 3.96 10*6/uL Normal 3.90-5.20 [facility] Comment on above: Order Comment: Speci men Type: BLOOD SPECIMENOrdering Facility: [facility] Address: [address] [place] [address] Performed By: #### 5 8410-2 ####[facility] LABORATORYCLIA [id number] [place] [address] [place] WBC (Bld) [#/Vol] 3.48 10*3/uL Low 3.70-11.00 [facility] Comment on above: Order Comment: Speci men Type: BLOOD SPECIMENOrdering Facility: [facility] Address: [address] [place] [address] Performed By: #### 5 8410-2 ####[facility] LABORATORYCLIA [id number] [place] [address] [place] NURSING PROGon 11-18-2022 NURSING PROG Normal [facility] Urinalysis complete panel (U )on 11-18-2022 Bacteria LM.HPF (Urine sed) [#/Area] Rare Abnormal None Seen [facility] Comment on above: Order Comment: Speci men Type: URINE SPECIMENOrdering Facility: [facility] Address: [address] [place] [address] Performed By: #### 2 4356-8 ####[facility]ORATORYCLIA [id number] [place] [address] [place] Bilirubin Ql (U) Negative Normal Negative [facility] Comment on above: Order Comment: Speci men Type: URINE SPECIMENOrdering Facility: [facility] Address: [address] [place] [address] Performed By: #### 2 4356-8 ####[facility]ORATORYCLIA [id number] [address] [place] Clarity (Unsp spec) Clear Normal Clear [facility] Comment on above: Order Comment: Speci men Type: URINE SPECIMENOrdering Facility: [facility] Address: [address] [place] [address] Performed By: #### 2 4356-8 ####[facility]ORATORYCLIA [id number] [address] STATES [facility] Color (U) Colorless Normal Yellow [facility] Comment on above: Order Comment: Speci men Type: URINE SPECIMENOrdering Facility: [facility] Address: [address] [place] [address] Performed By: #### 2 4356-8 ####[facility]ORATORYCLIA [id number] [address] [place] Epithelial cells LM.HPF (Urine sed) [#/Area] Few Normal [facility] Comment on above: Order Comment: Speci men Type: URINE SPECIMENOrdering Facility: [facility] Address: [address] [place] [address] Performed By: #### 2 4356-8 ####[facility]ORATORYCLIA [id number] [address] Glucose Test strip (U) [Mass/Vol] Negative Normal Trace, Negative [facility] Comment on above: Order Comment: Speci men Type: URINE SPECIMENOrdering Facility: [facility] Address: [address] [place] [address] Performed By: #### 2 4356-8 ####[facility] LABORATORYCLIA [id number] [place] [address] [place] Hemoglobin Ql (U) Negative Normal Negative, Trace Fa [facility] Comment on above: Order Comment: Speci men Type: URINE SPECIMENOrdering Facility: [facility] Address: [address] [place] [address] Performed By: #### 2 4356-8 ####[facility] LABORATORYCLIA [id number] [address] [place] Ketones Ql (U) Negative Normal Negative, Trace [facility] Comment on above: Order Comment: Speci men Type: URINE SPECIMENOrdering Facility: [facility] Address: [address] [place] [address] Performed By: #### 2 4356-8 ####[facility] LABORATORYCLIA [id number] [address] Leukocyte esterase Test strip Ql (U) Negative Normal Negative, 25 Patito/uL [facility] Comment on above: Order Comment: Speci men Type: URINE SPECIMENOrdering Facility: [facility] Address: [address] [place] [address] Performed By: #### 2 4356-8 ####[facility] LABORATORYCLIA [id number] [address] [place] Nitrite Ql (U) Negative Normal Negative [facility] Comment on above: Order Comment: Speci men Type: URINE SPECIMENOrdering Facility: [facility] Address: [address] [place] [address] Performed By: #### 2 4356-8 ####[facility] LABORATORYCLIA [id number] [place] [address] [place] pH (U) 7.5 [pH] Normal 5.0-8.0 [facility] Comment on above: Order Comment: Speci men Type: URINE SPECIMENOrdering Facility: [facility] Address: [address] [place] [address] Performed By: #### 2 4356-8 ####[facility]ORATORYCLIA [id number] [address] [place] Protein (U) [Mass/Vol] Negative Normal Trace, Negative [facility] Comment on above: Order Comment: Speci men Type: URINE SPECIMENOrdering Facility: [facility] Address: [address] [place] [address] Performed By: #### 2 4355-8 ####[facility]ORATORYCLIA [id number] [address] [place] RBC LM.HPF (Urine sed) [#/Area] 0-3 /HPF Normal 0-3 /HPF [facility] Comment on above: Order Comment: Speci men Type: URINE SPECIMENOrdering Facility: [facility] Address: [address] [place] [address] Performed By: #### 2 6-8 ####[facility]ORATORYCLIA [id number] [place] [address] [place] Specific gravity (U) [Rel density] 1.007 Normal 1.005-1.030 [facility] Comment on above: Order Comment: Speci men Type: URINE SPECIMENOrdering Facility: [facility] Address: [address] [place] [address] Performed By: #### 2 4355-8 ####[facility]ORATORYCLIA [id number] [address] [place] Urobilinogen Ql (U) Negative Normal Negative [facility] Comment on above: Order Comment: Speci men Type: URINE SPECIMENOrdering Facility: [facility] Address: [address] [place] [address] Performed By: #### 2 4356-8 ####[facility]ORATORYCLIA [id number] [place] [address] [place] WBC LM.HPF (Urine sed) [#/Area] 0-5 /HPF Normal 0-5 /HPF [facility] Comment on above: Order Comment: Speci men Type: URINE SPECIMENOrdering Facility: [facility] Address: [address] [place] [address] Performed By: #### 2 4356-8 ####[facility]ORATORYCLIA [id number] [place] [address] [place] Bilirubin Ql (U) Negative Normal Negative [facility] Comment on above: Order Comment: Speci men Type: URINE SPECIMENOrdering Facility: [facility] Address: [address] [place] [address] Performed By: #### 2 6-8 ####[facility] LABORATORYCLIA [id number] [address] [place] Clarity (Unsp spec) Clear Normal Clear [facility] Comment on above: Order Comment: Speci men Type: URINE SPECIMENOrdering Facility: [facility] Address: [address] [place] [address] Performed By: #### 2 4356-8 ####[facility]ORATORYCLIA [id number] [place] [address] [place] Color (U) Colorless Normal Yellow [facility] Comment on above: Order Comment: Speci men Type: URINE SPECIMENOrdering Facility: [facility] Address: [address] [place] [address] Performed By: #### 2 4356-8 ####[facility] LABORATORYCLIA [id number] [address] [place] Epithelial cells LM.HPF (Urine sed) [#/Area] Few Normal [facility] Comment on above: Order Comment: Speci men Type: URINE SPECIMENOrdering Facility: [facility] Address: [address] [place] [address] Performed By: #### 2 4356-8 ####[facility]ORATORYCLIA [id number] [place] [address] [place] Glucose Test strip (U) [Mass/Vol] Negative Normal Trace, Negative [facility] Comment on above: Order Comment: Speci men Type: URINE SPECIMENOrdering Facility: [facility] Address: [address] [place] [address] Performed By: #### 2 4356-8 ####[facility] LABORATORYCLIA [id number] [place] [address] [place] Hemoglobin Ql (U) Negative Normal Negative, Trace Fa [facility] Comment on above: Order Comment: Speci men Type: URINE SPECIMENOrdering Facility: [facility] Address: [address] [place] [address] Performed By: #### 2 4356-8 ####[facility] LABORATORYCLIA [id number] [place] [address] [place] Ketones Ql (U) Negative Normal Negative, Trace [facility] Comment on above: Order Comment: Speci men Type: URINE SPECIMENOrdering Facility: [facility] Address: [address] [place] [address] Performed By: #### 2 4356-8 ####[facility]ORATORYCLIA [id number] [address] [place] Leukocyte esterase Test strip Ql (U) Negative Normal Negative, 25 Patito/uL [facility] Comment on above: Order Comment: Speci men Type: URINE SPECIMENOrdering Facility: [facility] Address: [address] [place] [address] Performed By: #### 2 4356-8 ####[facility]ORATORYCLIA [id number] [place] [address] [place] Nitrite Ql (U) Negative Normal Negative [facility] Comment on above: Order Comment: Speci men Type: URINE SPECIMENOrdering Facility: [facility] Address: [address] [place] [address] Performed By: #### 2 4356-8 ####[facility]ORATORYCLIA [id number] [address] [place] pH (U) 7.5 [pH] Normal 5.0-8.0 [facility] Comment on above: Order Comment: Speci men Type: URINE SPECIMENOrdering Facility: [facility] Address: [address] [place] [address] Performed By: #### 2 4356-8 ####[facility] LABORATORYCLIA [id number] [address] Protein (U) [Mass/Vol] Negative Normal Trace, Negative [facility] Comment on above: Order Comment: Speci men Type: URINE SPECIMENOrdering Facility: [facility] Address: [address] [place] [address] Performed By: #### 2 4356-8 ####[facility] LABORATORYCLIA [id number] [place] [address] [place] RBC LM.HPF (Urine sed) [#/Area] 0-3 /HPF Normal 0-3 /HPF [facility] Comment on above: Order Comment: Speci men Type: URINE SPECIMENOrdering Facility: [facility] Address: [address] [place] [address] Performed By: #### 2 4356-8 ####[facility] LABORATORYCLIA [id number] [address] [place] Specific gravity (U) [Rel density] 1.006 Normal 1.005-1.030 [facility] Comment on above: Order Comment: Speci men Type: URINE SPECIMENOrdering Facility: [facility] Address: [address] [place] [address] Performed By: #### 2 4356-8 ####[facility] LABORATORYCLIA [id number] [address] [place] Urobilinogen Ql (U) Negative Normal Negative [facility] Comment on above: Order Comment: Speci men Type: URINE SPECIMENOrdering Facility: [facility] Address: [address] [place] [address] Performed By: #### 2 4356-8 ####[facility] LABORATORYCLIA [id number] [place] [address] [place] WBC LM.HPF (Urine sed) [#/Area] 0-5 /HPF Normal 0-5 /HPF [facility] Comment on above: Order Comment: Speci men Type: URINE SPECIMENOrdering Facility: [facility] Address: [address] [place] [address] Performed By: #### 2 4356-8 ####[facility] LABORATORYCLIA [id number] [place] [address] [place] ALLIED HEALTHon 11-17-2022 ALLIED HEALTH Normal [facility] CBC W Auto Differential pane l (Bld)on 11-17-2022 Basophils (Bld) [#/Vol] 0.03 10*3/uL Normal <0.11 [facility] Comment on above: Order Comment: Speci men Type: BLOOD SPECIMENOrdering Facility: [facility] Address: [address] [place] [address] Performed By: #### 5 7021-8 ####[facility] LABORATORYCLIA [id number] [place] [address] [place] Basophils/100 WBC (Bld) 0.7 % Normal [facility] Comment on above: Order Comment: Speci men Type: BLOOD SPECIMENOrdering Facility: [facility] Address: [address] [place] [address] Performed By: #### 5 7021-8 ####[facility] LABORATORYCLIA [id number] [place] [address] [place] Differential cell count method Nom (Bld) Auto Normal [facility] Comment on above: Order Comment: Speci men Type: BLOOD SPECIMENOrdering Facility: [facility] Address: [address] [address] Performed By: #### 5 7021-8 ####OSVALDO LABORATORYCLIA [id number] [place] [address] [place] Eosinophils (Bld) [#/Vol] 0.07 10*3/uL Normal <0.46 [facility] Comment on above: Order Comment: Speci men Type: BLOOD SPECIMENOrdering Facility: [facility] Address: [address] [address] Performed By: #### 5 7021-8 ####OSVALDO LABORATORYCLIA [id number] [place] [address] [place] Eosinophils/100 WBC (Bld) 1.7 % Normal [facility] Comment on above: Order Comment: Speci men Type: BLOOD SPECIMENOrdering Facility: [facility] Address: [address] [address] Performed By: #### 5 7021-8 ####OS[facility] LABORATORYCLIA [id number] [place] [address] [place] Erythrocyte distribution width (RBC) [Ratio] 13.2 % Normal 11.5-15.0 [facility] Comment on above: Order Comment: Speci men Type: BLOOD SPECIMENOrdering Facility: [facility] Address: [address] [place] [address] Performed By: #### 5 7021-8 ####OSVALDO LABORATORYCLIA [id number] [address] [place] Hematocrit (Bld) [Volume fraction] 37.2 % Normal 36.0-46.0 [facility] Comment on above: Order Comment: Speci men Type: BLOOD SPECIMENOrdering Facility: [facility] Address: [address] [place] [address] Performed By: #### 5 7021-8 ####OSVALDO LABORATORYCLIA [id number] [address] [place] Hemoglobin (Bld) [Mass/Vol] 12.9 g/dL Normal 11.5-15.5 [facility] Comment on above: Order Comment: Speci men Type: BLOOD SPECIMENOrdering Facility: [facility] Address: [address] [address] Performed By: #### 5 7021-8 ####OSVALDO LABORATORYCLIA [id number] [address] [place] Immature granulocytes (Bld) [#/Vol] 10*3/uL Normal <0.10 [facility] Comment on above: Order Comment: Speci men Type: BLOOD SPECIMENOrdering Facility: [facility] Address: [address] [place] [address] Performed By: #### 5 7021-8 ####[facility] LABORATORYCLIA [id number] [address] [place] Immature granulocytes/100 WBC (Bld) 0.2 % Normal [facility] Comment on above: Order Comment: Speci men Type: BLOOD SPECIMENOrdering Facility: [facility] Address: [address] [place] [address] Performed By: #### 5 7021-8 ####[facility] LABORATORYCLIA [id number] [place] [address] [place] Lymphocytes (Bld) [#/Vol] 1.81 10*3/uL Normal 1.00-4.00 [facility] Comment on above: Order Comment: Speci men Type: BLOOD SPECIMENOrdering Facility: [facility] Address: [address] [place] [address] Performed By: #### 5 7021-8 ####[facility] LABORATORYCLIA [id number] [address] Lymphocytes/100 WBC (Bld) 44.6 % Normal [facility] Comment on above: Order Comment: Speci men Type: BLOOD SPECIMENOrdering Facility: [facility] Address: [address] [place] [address] Performed By: #### 5 7021-8 ####OSVALDO LABORATORYCLIA [id number] [address] [place] MCH (RBC) [Entitic mass] 31.1 pg Normal 26.0-34.0 [facility] Comment on above: Order Comment: Speci men Type: BLOOD SPECIMENOrdering Facility: [facility] Address: [address] [place] [address] Performed By: #### 5 7021-8 ####[facility] LABORATORYCLIA [id number] [address] MCHC (RBC) [Mass/Vol] 34.7 g/dL Normal 30.5-36.0 [facility] Comment on above: Order Comment: Speci men Type: BLOOD SPECIMENOrdering Facility: [facility] Address: [address] [address] Performed By: #### 5 7021-8 ####[facility] LABORATORYCLIA [id number] [place] [address] [place] MCV (RBC) [Entitic vol] 89.6 fL Normal 80.0-100.0 [facility] Comment on above: Order Comment: Speci men Type: BLOOD SPECIMENOrdering Facility: [facility] Address: [address] [place] [address] Performed By: #### 5 7021-8 ####[facility] LABORATORYCLIA [id number] [place] [address] [place] Monocytes (Bld) [#/Vol] 0.21 10*3/uL Normal <0.87 [facility] Comment on above: Order Comment: Speci men Type: BLOOD SPECIMENOrdering Facility: [facility] Address: [address] [place] [address] Performed By: #### 5 7021-8 ####[facility] LABORATORYCLIA [id number] [place] [address] [place] Monocytes/100 WBC (Bld) 5.2 % Normal [facility] Comment on above: Order Comment: Speci men Type: BLOOD SPECIMENOrdering Facility: [facility] Address: [address] [place] [address] Performed By: #### 5 7021-8 ####OSVALDO LABORATORYCLIA [id number] [address] [address] [place] Neutrophils (Bld) [#/Vol] 1.93 10*3/uL Normal 1.45-7.50 [facility] Comment on above: Order Comment: Speci men Type: BLOOD SPECIMENOrdering Facility: [facility] Address: [address] [place] [address] Performed By: #### 5 7021-8 ####[facility] LABORATORYCLIA [id number] [address] [place] Neutrophils/100 WBC (Bld) 47.6 % Normal [facility] Comment on above: Order Comment: Speci men Type: BLOOD SPECIMENOrdering Facility: [facility] Address: [address] [address] Performed By: #### 5 7021-8 ####OS[facility]DO LABORATORYCLIA [id number] [address] [id number] [place] Nucleated RBC (Bld) [#/Vol] 10*3/uL Normal <0.01 [facility] Comment on above: Order Comment: Speci men Type: BLOOD SPECIMENOrdering Facility: [facility] Address: [address] [address] Performed By: #### 5 7021-8 ####[facility] LABORATORYCLIA [id number] [address] [place] [address] [place] Nucleated RBC/100 WBC (Bld) [Ratio] 0.0 /100 WBC Normal [facility] Comment on above: Order Comment: Speci men Type: BLOOD SPECIMENOrdering Facility: [facility] Address: [address] [address] Performed By: #### 5 7021-8 ####[facility] LABORATORYCLIA [id number] [place] [address] [place] Platelet mean volume (Bld) [Entitic vol] 11.9 fL Normal 9.0-12.7 [facility] Comment on above: Order Comment: Speci men Type: BLOOD SPECIMENOrdering Facility: [facility] Address: [address] [address] Performed By: #### 5 7021-8 ####[facility] LABORATORYCLIA [id number] [address] [address] [place] Platelets (Bld) [#/Vol] 85 10*3/uL Low 150-400 [facility] Comment on above: Order Comment: Speci men Type: BLOOD SPECIMENOrdering Facility: [facility] Address: [address] [place] [address] Result Comment: Resu lts may be inaccurate due to the presence of microclots. Performed By: #### 5 7021-8 ####[facility] LABORATORYCLIA [id number] [address] [place] RBC (Bld) [#/Vol] 4.15 10*6/uL Normal 3.90-5.20 [facility] Comment on above: Order Comment: Speci men Type: BLOOD SPECIMENOrdering Facility: [facility] Address: [address] [place] [address] Performed By: #### 5 7021-8 ####OS[facility] LABORATORYCLIA [id number] [address] [place] OF [facility] WBC (Bld) [#/Vol] 4.06 10*3/uL Normal 3.70-11.00 [facility] Comment on above: Order Comment: Speci men Type: BLOOD SPECIMENOrdering Facility: [facility] Address: [address] [place] [address] Result Comment: Resu lts may be inaccurate due to the presence of microclots. Performed By: #### 5 7021-8 ####OS[facility] LABORATORYCLIA [id number] [address] [place] CONSULTon 11-17-2022 CONSULT Normal [facility] CT ABD/PEL W IVCONon 023 CT ABD/PEL W IVCON Normal [facility] Comprehensive metabolic 2000 panelon 11-17-2022 Albumin [Mass/Vol] 4.2 g/dL Normal 3.9-4.9 [facility] Comment on above: Order Comment: Speci men Type: BLOOD SPECIMENOrdering Facility: [facility] Address: [address] [place] [address] Performed By: #### 3 040-3, 51236-3 ####OSVALDO LABORATORYCLIA [id number] [address] [address] [place] [facility] ALP [Catalytic activity/Vol] 69 U/L Normal 34-123 [facility] Comment on above: Order Comment: Speci men Type: BLOOD SPECIMENOrdering Facility: [facility] Address: [address] [place] [address] Performed By: #### 3 040-3, 92723-0 ####OSVAL[facility] LABORATORYCLIA [id number] [place] [address] [place] ALT [Catalytic activity/Vol] 22 U/L Normal 7-38 [facility] Comment on above: Order Comment: Speci men Type: BLOOD SPECIMENOrdering Facility: [facility] Address: [address] [address] Performed By: #### 3 040-3, 33828-1 ####[facility] LABORATORYCLIA [id number] [place] [address] [place] Anion gap [Moles/Vol] 9 mmol/L Normal 9-18 [facility] Comment on above: Order Comment: Speci men Type: BLOOD SPECIMENOrdering Facility: [facility] Address: [address] [address] Performed By: #### 3 040-3, ####[facility] LABORATORYCLIA [id number] [place] [address] [place] AST [Catalytic activity/Vol] 40 U/L High 13-35 [facility] Comment on above: Order Comment: Speci men Type: BLOOD SPECIMENOrdering Facility: [facility] Address: [address] [address] Performed By: #### 3 040-3, 20837-3 ####OS[facility] LABORATORYCLIA [id number] [place] [address] [place] Bilirubin [Mass/Vol] 0.4 mg/dL Normal 0.2-1.3 [facility] Comment on above: Order Comment: Speci men Type: BLOOD SPECIMENOrdering Facility: [facility] Address: [address] [address] Performed By: #### 3 040-3, 91539-4 ####[facility] LABORATORYCLIA [id number] [place] [address] [place] Calcium [Mass/Vol] 8.8 mg/dL Normal 8.5-10.2 [facility] Comment on above: Order Comment: Speci men Type: BLOOD SPECIMENOrdering Facility: [facility] Address: [address] [address] Performed By: #### 3 040-3, 31027-2 ####[place] LABORATORYCLIA [id number] [address] [address] [place] Chloride [Moles/Vol] 107 mmol/L High 97-105 [facility] Comment on above: Order Comment: Speci men Type: BLOOD SPECIMENOrdering Facility: [facility] Address: [address] [place] [address] Performed By: #### 3 040-3, 16391-7 ####[facility] LABORATORYCLIA [id number] [address] [address] [place] CO2 [Moles/Vol] 23 mmol/L Normal 22-30 [facility] Comment on above: Order Comment: Speci men Type: BLOOD SPECIMENOrdering Facility: [facility] Address: [address] [place] [address] Performed By: #### 3 040-3, 57465-3 ####[facility] LABORATORYCLIA [id number] [address] [address] [facility] [place] Creatinine [Mass/Vol] 0.75 mg/dL Normal 0.58-0.96 [facility] Comment on above: Order Comment: Speci men Type: BLOOD SPECIMENOrdering Facility: [facility] Address: [address] [place] [address] Performed By: #### 3 040-3, 63530-7 ####[facility] LABORATORYCLIA [id number] [address] Creatinine and Glomerular filtration rate.predicted panel (S/P/Bld) 108 mL/min/1.73m??? Normal >=60 [facility] Comment on above: Order Comment: Speci men Type: BLOOD SPECIMENOrdering Facility: [facility] Address: [address] [place] [address] Result Comment: Jessica mated Glomerular Filtration Rate [...] actual GFR. Performed By: #### 3 040-3, 49833-5 ####[facility] LABORATORYCLIA [id number] [address] [address] [place] Glucose [Mass/Vol] 80 mg/dL Normal 74-99 [facility] Comment on above: Order Comment: Geraldo marrero Type: BLOOD SPECIMENOrdering Facility: [facility] Address: [address] [address] Result Comment: The [place] [employer] (ADA) provides guidance for cutoff [...] Standards of Medical Care in Diabetes 2016, [place] [employer]. Diabetes Care. 2016.39(Suppl 1). Performed By: #### 3 040-3, 81338-5 ####[facility] LABORATORYCLIA [id number] [address] [address] [place] Potassium [Moles/Vol] 4.3 mmol/L Normal 3.7-5.1 [facility] Comment on above: Order Comment: Geraldo marrero Type: BLOOD SPECIMENOrdering Facility: [facility] Address: [address] [address] Performed By: #### 3 040-3, 86295-7 ####[facility] LABORATORYCLIA [id number] [place] [address] [place] Protein [Mass/Vol] 6.9 g/dL Normal 6.3-8.0 [facility] Comment on above: Order Comment: Geraldo marrero Type: BLOOD SPECIMENOrdering Facility: [facility] Address: [address] [address] Performed By: #### 3 040-3, ####[facility] LABORATORYCLIA [id number] [place] [address] [facility] Sodium [Moles/Vol] 139 mmol/L Normal 136-144 [facility] Comment on above: Order Comment: Speci men Type: BLOOD SPECIMENOrdering Facility: [facility] Address: [address] Performed By: #### 3 040-3, ####[facility] LABORATORYCLIA [id number] [place] [address] [facility] Urea nitrogen [Mass/Vol] 8 mg/dL Normal 7-21 [facility] Comment on above: Order Comment: Speci men Type: BLOOD SPECIMENOrdering Facility: [facility] Address: [address] [place], [place] [id number] Performed By: #### 3 040-3, ####[facility] LABORATORYCLIA [id number] [address] ED NOTEon 11-17-2022 ED NOTE HNO ID: [id number] Author: Jayla Jean RN Service: ? Author Type: Registered Nurse Type: ED Notes Filed: 11/17/2022 2:00 PM Note Text: Pt sts symptoms she feels like she is going to pass out in WR. Vitals rechecked and DS done Normal [facility] ED PROV NOTEon 11-17-2022 ED PROV NOTE Normal [facility] ED PROV NOTE Normal [facility] ED Triage Noteon 11-17-2022 ED Triage Note Normal [facility] Lipase SerPl-cCncon 11-18-19 23 Lipase [Catalytic activity/Vol] 26 U/L Normal 16-61 [facility] Comment on above: Order Comment: Speci men Type: BLOOD SPECIMENOrdering Facility: [facility] Address: [address] Performed By: #### 3 040-3, ####[facility] LABORATORYCLIA [id number] [place] [address] [facility] NURSING PROGon 11-17-2022 NURSING PROG Normal [facility] NURSING PROG Normal [facility] Ambulatory Visit Summaryon 1 Ambulatory Visit Summary Normal [facility] Family Medicine Office/Clini c Noteon 11-16-2022 Family Medicine Office/Clinic Note Normal [facility] Comment on above: Result Comment: Elec tronically Signed By: Jaquan Paula\.br\Date and Time Signed: 11/16/22 10:42 EDT Basic metabolic 2000 panelon 11-12-2022 Anion gap [Moles/Vol] 12 mmol/L Normal 9-18 [facility] Comment on above: Order Comment: Speci men Type: BLOOD SPECIMENOrdering Facility: [facility] Address: [address] [place] [address] Performed By: #### 2 4321-2 ####[place] LABORATORYCLIA [id number] [place] [address] [place] Calcium [Mass/Vol] 8.8 mg/dL Normal 8.5-10.2 [facility] Comment on above: Order Comment: Speci men Type: BLOOD SPECIMENOrdering Facility: [facility] Address: [address] [address] Performed By: #### 2 4321-2 ####[place] LABORATORYCLIA [id number] [place] [address] [place] Chloride [Moles/Vol] 104 mmol/L Normal 97-105 [facility] Comment on above: Order Comment: Speci men Type: BLOOD SPECIMENOrdering Facility: [facility] Address: [address] [address] Performed By: #### 2 4321-2 ####[place] LABORATORYCLIA [id number] [place] [address] [place] CO2 [Moles/Vol] 20 mmol/L Low 22-30 [facility] Comment on above: Order Comment: Speci men Type: BLOOD SPECIMENOrdering Facility: [facility] Address: [address] [address] Performed By: #### 2 4321-2 ####[place] LABORATORYCLIA [id number] [place] [address] [place] [facility] Creatinine [Mass/Vol] 0.62 mg/dL Normal 0.58-0.96 [facility] Comment on above: Order Comment: Geraldo marrero Type: BLOOD SPECIMENOrdering Facility: [facility] Address: [address] [address] Performed By: #### 2 4321-2 ####[facility] LABORATORYCLIA [id number] [place] [address] [facility] Creatinine and Glomerular filtration rate.predicted panel (S/P/Bld) 121 mL/min/1.73m??? Normal >=60 [facility] Comment on above: Order Comment: Geraldo marrero Type: BLOOD SPECIMENOrdering Facility: [facility] Address: [address] [place] [address] Result Comment: Jessica mated Glomerular Filtration Rate [...] Performed By: #### 2 4321-2 ####[facility] LABORATORYCLIA [id number] [place] [address] [place] Glucose [Mass/Vol] 102 mg/dL High 74-99 [facility] Comment on above: Order Comment: Geraldo marrero Type: BLOOD SPECIMENOrdering Facility: [facility] Address: [address] [place] [address] Result Comment: The [place] Diabetes [employer] (ADA) provides guidance for cutoff [...] Standards of Medical Care in Diabetes 2016, [place] [employer]. Diabetes Care. 2016.39(Suppl 1). Performed By: #### 2 4321-2 ####[place] LABORATORYCLIA [id number] [address] [place] Potassium [Moles/Vol] 4.2 mmol/L Normal 3.7-5.1 [facility] Comment on above: Order Comment: Speci men Type: BLOOD SPECIMENOrdering Facility: [facility] Address: [address] [address] Performed By: #### 2 4321-2 ####[place] LABORATORYCLIA [id number] [address] [place] Sodium [Moles/Vol] 136 mmol/L Normal 136-144 [facility] Comment on above: Order Comment: Speci men Type: BLOOD SPECIMENOrdering Facility: [facility] Address: [address] [place] [address] Performed By: #### 2 4321-2 ####[place] LABORATORYCLIA [id number] [address] [place] Urea nitrogen [Mass/Vol] 8 mg/dL Normal 7-21 [facility] Comment on above: Order Comment: Speci men Type: BLOOD SPECIMENOrdering Facility: [facility] Address: [address] [place] [address] Performed By: #### 2 4321-2 ####[place] LABORATORYCLIA [id number] [place] [id number] [place] CBC W Auto Differential pane l (Bld)on 11-12-2022 Basophils (Bld) [#/Vol] 10*3/uL Normal <0.11 [facility] Comment on above: Order Comment: Speci men Type: BLOOD SPECIMENOrdering Facility: [facility] Address: [address] [address] Performed By: #### 5 7021-8 ####[place] LABORATORYCLIA [id number] [place] [address] [place] Basophils/100 WBC (Bld) 0.2 % Normal [facility] Comment on above: Order Comment: Speci men Type: BLOOD SPECIMENOrdering Facility: [facility] Address: [address] [place] [address] Performed By: #### 5 7021-8 ####[facility] LABORATORYCLIA [id number] [place] [address] [place] Differential cell count method Nom (Bld) Auto Normal [facility] Comment on above: Order Comment: Speci men Type: BLOOD SPECIMENOrdering Facility: [facility] Address: [address] [place] [address] Performed By: #### 5 7021-8 ####[facility] LABORATORYCLIA [id number] [place] [address] [place] Eosinophils (Bld) [#/Vol] 10*3/uL Normal <0.46 [facility] Comment on above: Order Comment: Speci men Type: BLOOD SPECIMENOrdering Facility: [facility] Address: [address] [place] [address] Performed By: #### 5 7021-8 ####[facility] LABORATORYCLIA [id number] [address] [place] Eosinophils/100 WBC (Bld) 0.0 % Normal [facility] Comment on above: Order Comment: Speci men Type: BLOOD SPECIMENOrdering Facility: [facility] Address: [address] [place] [address] Performed By: #### 5 7021-8 ####[facility] LABORATORYCLIA [id number] [place] [address] [place] Erythrocyte distribution width (RBC) [Ratio] 12.6 % Normal 11.5-15.0 [facility] Comment on above: Order Comment: Speci men Type: BLOOD SPECIMENOrdering Facility: [facility] Address: [address] [place] [address] Performed By: #### 5 7021-8 ####[facility] LABORATORYCLIA [id number] [place] [address] [place] Hematocrit (Bld) [Volume fraction] 36.9 % Normal 36.0-46.0 [facility] Comment on above: Order Comment: Speci men Type: BLOOD SPECIMENOrdering Facility: [facility] Address: [address] [address] Performed By: #### 5 7021-8 ####[facility] LABORATORYCLIA [id number] [place] [address] [place] Hemoglobin (Bld) [Mass/Vol] 12.8 g/dL Normal 11.5-15.5 [facility] Comment on above: Order Comment: Speci men Type: BLOOD SPECIMENOrdering Facility: [facility] Address: [address] [place] [address] Performed By: #### 5 7021-8 ####[facility] LABORATORYCLIA [id number] [place] [address] [place] Immature granulocytes (Bld) [#/Vol] 0.08 10*3/uL Normal <0.10 [facility] Comment on above: Order Comment: Speci men Type: BLOOD SPECIMENOrdering Facility: [facility] Address: [address] [address] Performed By: #### 5 7021-8 ####[facility] LABORATORYCLIA [id number] [address] [place] Immature granulocytes/100 WBC (Bld) 0.8 % Normal [facility] Comment on above: Order Comment: Speci men Type: BLOOD SPECIMENOrdering Facility: [facility] Address: [address] [address] Performed By: #### 5 7021-8 ####[facility] LABORATORYCLIA [id number] [place] [address] [place] Lymphocytes (Bld) [#/Vol] 1.23 10*3/uL Normal 1.00-4.00 [facility] Comment on above: Order Comment: Speci men Type: BLOOD SPECIMENOrdering Facility: [facility] Address: [address] [address] Performed By: #### 5 7021-8 ####[facility] LABORATORYCLIA [id number] [address] [place] Lymphocytes/100 WBC (Bld) 12.8 % Normal [facility] Comment on above: Order Comment: Speci men Type: BLOOD SPECIMENOrdering Facility: [facility] Address: [address] [address] Performed By: #### 5 7021-8 ####OSVALDO LABORATORYCLIA [id number] [address] [place] [facility] MCH (RBC) [Entitic mass] 30.4 pg Normal 26.0-34.0 [facility] Comment on above: Order Comment: Speci men Type: BLOOD SPECIMENOrdering Facility: [facility] Address: [address] [place] [address] Performed By: #### 5 7021-8 ####OSVALDO LABORATORYCLIA [id number] [address] [place] [facility] MCHC (RBC) [Mass/Vol] 34.7 g/dL Normal 30.5-36.0 [facility] Comment on above: Order Comment: Speci men Type: BLOOD SPECIMENOrdering Facility: [facility] Address: [address] [place] [address] Performed By: #### 5 7021-8 ####[facility] LABORATORYCLIA [id number] [address] [place] MCV (RBC) [Entitic vol] 87.6 fL Normal 80.0-100.0 [facility] Comment on above: Order Comment: Speci men Type: BLOOD SPECIMENOrdering Facility: [facility] Address: [address] [place] [address] Performed By: #### 5 7021-8 ####[facility] LABORATORYCLIA [id number] [address] Monocytes (Bld) [#/Vol] 0.42 10*3/uL Normal <0.87 [facility] Comment on above: Order Comment: Speci men Type: BLOOD SPECIMENOrdering Facility: [facility] Address: [address] [place] [address] Performed By: #### 5 7021-8 ####[facility] LABORATORYCLIA [id number] [place] [address] [place] Monocytes/100 WBC (Bld) 4.4 % Normal [facility] Comment on above: Order Comment: Speci men Type: BLOOD SPECIMENOrdering Facility: [facility] Address: [address] [address] Performed By: #### 5 7021-8 ####[facility] LABORATORYCLIA [id number] [place] [address] [place] Neutrophils (Bld) [#/Vol] 7.84 10*3/uL High 1.45-7.50 [facility] Comment on above: Order Comment: Speci men Type: BLOOD SPECIMENOrdering Facility: [facility] Address: [address] [address] Performed By: #### 5 7021-8 ####OS[facility] LABORATORYCLIA [id number] [place] [address] [place] Neutrophils/100 WBC (Bld) 81.8 % Normal [facility] Comment on above: Order Comment: Speci men Type: BLOOD SPECIMENOrdering Facility: [facility] Address: [address] [place] [address] Performed By: #### 5 7021-8 ####OS[facility] LABORATORYCLIA [id number] [place] [address] [place] Nucleated RBC (Bld) [#/Vol] 10*3/uL Normal <0.01 [facility] Comment on above: Order Comment: Speci men Type: BLOOD SPECIMENOrdering Facility: [facility] Address: [address] [address] Performed By: #### 5 7021-8 ####[facility] LABORATORYCLIA [id number] [place] [address] [place] Nucleated RBC/100 WBC (Bld) [Ratio] 0.0 /100 WBC Normal [facility] Comment on above: Order Comment: Speci men Type: BLOOD SPECIMENOrdering Facility: [facility] Address: [address] [address] Performed By: #### 5 7021-8 ####[facility] LABORATORYCLIA [id number] [place] [address] [place] Platelet mean volume (Bld) [Entitic vol] 11.3 fL Normal 9.0-12.7 [facility] Comment on above: Order Comment: Speci men Type: BLOOD SPECIMENOrdering Facility: [facility] Address: [address] [address] Performed By: #### 5 7021-8 ####[facility] LABORATORYCLIA [id number] [place] [address] [place] Platelets (Bld) [#/Vol] 253 10*3/uL Normal 150-400 [facility] Comment on above: Order Comment: Speci men Type: BLOOD SPECIMENOrdering Facility: [facility] Address: [address] [address] Performed By: #### 5 7021-8 ####[facility] LABORATORYCLIA [id number] [place] [address] [place] RBC (Bld) [#/Vol] 4.21 10*6/uL Normal 3.90-5.20 [facility] Comment on above: Order Comment: Speci men Type: BLOOD SPECIMENOrdering Facility: [facility] Address: [address] [address] Performed By: #### 5 7021-8 ####[facility] LABORATORYCLIA [id number] [place] [address] [place] WBC (Bld) [#/Vol] 9.59 10*3/uL Normal 3.70-11.00 [facility] Comment on above: Order Comment: Speci men Type: BLOOD SPECIMENOrdering Facility: [facility] Address: [address] [address] Performed By: #### 5 7021-8 ####[facility] LABORATORYCLIA [id number] [place] [address] [place] CNDSon 11-12-2022 CNDS [facility] CNPNon 11-12-2022 CNPN Normal [facility] NURSING PROGon 11-12-2022 NURSING PROG Normal [facility] NUTRITIONon 11-12-2022 NUTRITION Normal [facility] ANES POSTPROC EVALon 023 ANES POSTPROC EVAL Normal [facility] ANES PRE-OPon 11-11-2022 ANES PRE-OP [facility] BRIEF OP NOTon 11-11-2022 BRIEF OP NOT [facility] ERCPon 11-11-2022 ERCP [facility] NURSING PROGon 11-11-2022 NURSING PROG [facility] OPERATIVE NOon 11-11-2022 OPERATIVE NO [facility] PT EDon 11-11-2022 PT ED [facility] TYPE + SCREENon 11-11-2022 ABO O [facility] Comment on above: Order Comment: Speci men Type: BLOOD SPECIMENOrdering Facility: [facility] Address: [address] [place] [address] Performed By: #### T SCR ####[place] [facility] [facility]LO[facility] BANKCLIA [id number] [place] [address] [place] HISTORICAL AB SCR STATUS Negative [facility] Comment on above: Order Comment: Speci men Type: BLOOD SPECIMENOrdering Facility: [facility] Address: [address] [place] [address] Performed By: #### T SCR ####[place] [facility]LOOD BANKCLIA [id number] [place] [address] [place] Rh Nom (Bld) Positive [facility] Comment on above: Order Comment: Speci men Type: BLOOD SPECIMENOrdering Facility: [facility] Address: [address] [address] Performed By: #### T SCR ####[place] BLOOD BANKCLIA [id number] [place] [address] [place] TYPE AND SCREEN EXPIRATION 11/14/2022 23:59 [facility] Comment on above: Order Comment: Speci men Type: BLOOD SPECIMENOrdering Facility: [facility] Address: [address] [address] Performed By: #### T SCR ####[place] BLOOD BANKIA [id number] [place] [address] [place] XR ERCP READ ONLYon 11-12-19 XR ERCP READ ONLY Normal [facility] CNCOon 11-10-2022 CNCO Letter Text Normal [facility] CNPNon 11-10-2022 CNPN Normal [facility] CNPNon 11-09-2022 CNPN Normal [facility] Population Healthon 11-10-19 Population Health Normal [facility] CNDSon 11-08-2022 CNDS Normal [facility] Basic metabolic 2000 panelon 11-06-2022 Anion gap [Moles/Vol] 8 mmol/L Low 9-18 [facility] Comment on above: Order Comment: Speci men Type: BLOOD SPECIMENOrdering Facility: [facility] Address: [address] [address] Performed By: #### 2 4321-2 ####[facility] CENTERCLIA [id number] [place] [address] [place] Calcium [Mass/Vol] 8.6 mg/dL Normal 8.5-10.2 [facility] Comment on above: Order Comment: Speci men Type: BLOOD SPECIMENOrdering Facility: [facility] Address: [address] [address] Performed By: #### 2 4321-2 ####[facility] LABORATORYCLIA [id number] [place] [address] [place] Chloride [Moles/Vol] 108 mmol/L High 97-105 [facility] Comment on above: Order Comment: Speci men Type: BLOOD SPECIMENOrdering Facility: [facility] Address: [address] [address] Performed By: #### 2 4321-2 ####[facility] LABORATORYCLIA [id number] [place] [address] [place] CO2 [Moles/Vol] 24 mmol/L Normal 22-30 [facility] Comment on above: Order Comment: Speci men Type: BLOOD SPECIMENOrdering Facility: [facility] Address: [address] [address] Performed By: #### 2 4321-2 ####[facility] LABORATORYCLIA [id number] [place] [address] [place] Creatinine [Mass/Vol] 0.74 mg/dL Normal 0.58-0.96 [facility] Comment on above: Order Comment: Lyssai men Type: BLOOD SPECIMENOrdering Facility: [facility] Address: [address] [address] Performed By: #### 2 4321-2 ####[facility] LABORATORYIA [id number] [address] OF [facility] Creatinine and Glomerular filtration rate.predicted panel (S/P/Bld) 110 mL/min/1.73m??? Normal >=60 [facility] Comment on above: Order Comment: Geraldo men Type: BLOOD SPECIMENOrdering Facility: [facility] Address: [address] [address] Result Comment: Jessica mated Glomerular Filtration Rate [...] actual GFR. Performed By: #### 2 4321-2 ####[facility] LABORATORYIA [id number] [place] [address] [place] Glucose [Mass/Vol] 82 mg/dL Normal 74-99 [facility] Comment on above: Order Comment: Lyssai elida Type: BLOOD SPECIMENOrdering Facility: [facility] Address: [address] [address] Result Comment: The [place] [employer] (ADA) provides guidance for cutoff [...] Standards of Medical Care in Diabetes 2016, [place] [employer]. Diabetes Care. 2016.39(Suppl 1). Performed By: #### 2 4321-2 ####[facility] LABORATORYIA [id number] [place] [address] [place] Potassium [Moles/Vol] 3.9 mmol/L Normal 3.7-5.1 [facility] Comment on above: Order Comment: Speci men Type: BLOOD SPECIMENOrdering Facility: [facility] Address: [address] [place] [address] Performed By: #### 2 4321-2 ####[facility] CENTERIA [id number] [place] [address] [place] Sodium [Moles/Vol] 140 mmol/L Normal 136-144 [facility] Comment on above: Order Comment: Lyssai men Type: BLOOD SPECIMENOrdering Facility: [facility] Address: [address] [address] Performed By: #### 2 4321-2 ####[facility] MED[facility] CENTERIA [id number] [place] [address] [place] Urea nitrogen [Mass/Vol] 8 mg/dL Normal 7-21 [facility] Comment on above: Order Comment: Speci men Type: BLOOD SPECIMENOrdering Facility: [facility] Address: [address] [address] Performed By: #### 2 4321-2 ####[facility] LABORATORYIA [id number] [place] [address] [place] CASE MGT INIT ASSESon 2022 [facility] CBC panel Auto (Bld)on 11-06 Erythrocyte distribution width (RBC) [Ratio] 13.3 % Normal 11.5-15.0 [facility] Comment on above: Order Comment: Speci men Type: BLOOD SPECIMENOrdering Facility: [facility] Address: [address] [place] [address] Performed By: #### 5 8410-2 ####[facility] LABORATORYCLIA [id number] [address] [place] Hematocrit (Bld) [Volume fraction] 34.5 % Low 36.0-46.0 [facility] Comment on above: Order Comment: Speci men Type: BLOOD SPECIMENOrdering Facility: [facility] Address: [address] [place] [address] Performed By: #### 5 8410-2 ####[facility] LABORATORYIA [id number] [place] [address] [place] Hemoglobin (Bld) [Mass/Vol] 11.4 g/dL Low 11.5-15.5 [facility] Comment on above: Order Comment: Speci men Type: BLOOD SPECIMENOrdering Facility: [facility] Address: [address] [place] [address] Performed By: #### 5 8410-2 ####[facility] LABORATORYIA [id number] [address] [place] MCH (RBC) [Entitic mass] 30.8 pg Normal 26.0-34.0 [facility] Comment on above: Order Comment: Speci men Type: BLOOD SPECIMENOrdering Facility: [facility] Address: [address] [place] [address] Performed By: #### 5 8410-2 ####[facility] LABORATORYIA [id number] [address] [place] MCHC (RBC) [Mass/Vol] 33.0 g/dL Normal 30.5-36.0 [facility] Comment on above: Order Comment: Speci men Type: BLOOD SPECIMENOrdering Facility: [facility] Address: [address] [place] [address] Performed By: #### 5 8410-2 ####[facility] MED[facility] CENTERIA [id number] [address] [place] MCV (RBC) [Entitic vol] 93.2 fL Normal 80.0-100.0 [facility] Comment on above: Order Comment: Speci men Type: BLOOD SPECIMENOrdering Facility: [facility] Address: [address] [address] Performed By: #### 5 8410-2 ####[facility] [id number] [address] [place] Nucleated RBC (Bld) [#/Vol] 10*3/uL Normal <0.01 [facility] Comment on above: Order Comment: Speci men Type: BLOOD SPECIMENOrdering Facility: [facility] Address: [address] [address] Performed By: #### 5 8410-2 ####[facility] CENTERIA [id number] [place] [address] [place] Platelet mean volume (Bld) [Entitic vol] 11.3 fL Normal 9.0-12.7 [facility] Comment on above: Order Comment: Speci men Type: BLOOD SPECIMENOrdering Facility: [facility] Address: [address] [address] Performed By: #### 5 8410-2 ####[facility] MED[facility] CENTERIA [id number] [place] [address] [place] Platelets (Bld) [#/Vol] 225 10*3/uL Normal 150-400 [facility] Comment on above: Order Comment: Speci men Type: BLOOD SPECIMENOrdering Facility: [facility] Address: [address] Performed By: #### 5 8410-2 ####[facility] LABORATORYIA [id number] [place] [address] [place] RBC (Bld) [#/Vol] 3.70 10*6/uL Low 3.90-5.20 [facility] Comment on above: Order Comment: Speci men Type: BLOOD SPECIMENOrdering Facility: [facility] Address: [address] [address] Performed By: #### 5 8410-2 ####[facility] LABORATORYCLIA [id number] [facility] [place] [address] [place] WBC (Bld) [#/Vol] 3.98 10*3/uL Normal 3.70-11.00 [facility] Comment on above: Order Comment: Speci men Type: BLOOD SPECIMENOrdering Facility: [facility] Address: [address] [address] Performed By: #### 5 8410-2 ####[facility] CENTERIA [id number] [facility] [address] [place] CNPNon 11-06-2022 CNPN Normal [facility] CONSULT PROGon 11-06-2022 CONSULT PROG Normal [facility] [place] HEPATOBILIARY W EF AND/OR RXon 11-06-2022 NM HEPATOBILIARY W EF AND/OR RX Normal [facility] CBC W Auto Differential pane l (Bld)on 11-05-2022 Basophils (Bld) [#/Vol] 0.03 10*3/uL Normal <0.11 [facility] Comment on above: Order Comment: Speci men Type: BLOOD SPECIMENOrdering Facility: [facility] Address: [address] Performed By: #### 5 7021-8 ####[facility] LABORATORYCLIA [id number] [facility] [place] [address] [place] Basophils/100 WBC (Bld) 0.6 % Normal [facility] Comment on above: Order Comment: Speci men Type: BLOOD SPECIMENOrdering Facility: [facility] Address: [address] [address] Performed By: #### 5 7021-8 ####[facility] LABORATORYCLIA [id number] [place] [address] [place] Differential cell count method Nom (Bld) Auto Normal [facility] Comment on above: Order Comment: Speci men Type: BLOOD SPECIMENOrdering Facility: [facility] Address: [address] [address] Performed By: #### 5 7021-8 ####[facility] LABORATORYCLIA [id number] [place] [address] [place] Eosinophils (Bld) [#/Vol] 0.08 10*3/uL Normal <0.46 [facility] Comment on above: Order Comment: Speci men Type: BLOOD SPECIMENOrdering Facility: [facility] Address: [address] [address] Performed By: #### 5 7021-8 ####[facility] LABORATORYCLIA [id number] [place] [address] [place] Eosinophils/100 WBC (Bld) 1.5 % Normal [facility] Comment on above: Order Comment: Speci men Type: BLOOD SPECIMENOrdering Facility: [facility] Address: [address] [address] Performed By: #### 5 7021-8 ####[facility] LABORATORYIA [id number] [address] [place] Erythrocyte distribution width (RBC) [Ratio] 13.3 % Normal 11.5-15.0 [facility] Comment on above: Order Comment: Speci men Type: BLOOD SPECIMENOrdering Facility: [facility] Address: [address] [address] Performed By: #### 5 7021-8 ####[facility] LABORATORYCLIA [id number] [address] [place] Hematocrit (Bld) [Volume fraction] 40.5 % Normal 36.0-46.0 [facility] Comment on above: Order Comment: Speci men Type: BLOOD SPECIMENOrdering Facility: [facility] Address: [address] [address] Performed By: #### 5 7021-8 ####[facility] LABORATORYCLIA [id number] [facility] [address] [place] [address] [place] Hemoglobin (Bld) [Mass/Vol] 13.3 g/dL Normal 11.5-15.5 [facility] Comment on above: Order Comment: Speci men Type: BLOOD SPECIMENOrdering Facility: [facility] Address: [address] [place] [address] Performed By: #### 5 7021-8 ####[facility] LABORATORYCLIA [id number] [facility] [place] [address] [place] Immature granulocytes (Bld) [#/Vol] 10*3/uL Normal <0.10 [facility] Comment on above: Order Comment: Speci men Type: BLOOD SPECIMENOrdering Facility: [facility] Address: [address] [place] [address] Performed By: #### 5 7021-8 ####[facility] LABORATORYIA [id number] [place] [address] [place] Immature granulocytes/100 WBC (Bld) 0.4 % Normal [facility] Comment on above: Order Comment: Speci men Type: BLOOD SPECIMENOrdering Facility: [facility] Address: [address] [place] [address] Performed By: #### 5 7021-8 ####[facility] LABORATORYCLIA [id number] [facility] [place] [address] [place] Lymphocytes (Bld) [#/Vol] 2.53 10*3/uL Normal 1.00-4.00 [facility] Comment on above: Order Comment: Speci men Type: BLOOD SPECIMENOrdering Facility: [facility] Address: [address] [place] [address] Performed By: #### 5 7021-8 ####[facility] LABORATORYIA [id number] [facility] [address] [place] Lymphocytes/100 WBC (Bld) 48.5 % Normal [facility] Comment on above: Order Comment: Speci men Type: BLOOD SPECIMENOrdering Facility: [facility] Address: [address] [address] Performed By: #### 5 7021-8 ####[facility] [id number] [address] MCH (RBC) [Entitic mass] 30.4 pg Normal 26.0-34.0 [facility] Comment on above: Order Comment: Speci men Type: BLOOD SPECIMENOrdering Facility: [facility] Address: [address] [address] Performed By: #### 5 7021-8 ####[facility] [id number] [address] MCHC (RBC) [Mass/Vol] 32.8 g/dL Normal 30.5-36.0 [facility] Comment on above: Order Comment: Speci men Type: BLOOD SPECIMENOrdering Facility: [facility] Address: [address] [address] Performed By: #### 5 7021-8 ####[facility] [id number] [address] MCV (RBC) [Entitic vol] 92.7 fL Normal 80.0-100.0 [facility] Comment on above: Order Comment: Speci men Type: BLOOD SPECIMENOrdering Facility: [facility] Address: [address] [address] Performed By: #### 5 7021-8 ####[facility] CENTERIA [id number] [address] Monocytes (Bld) [#/Vol] 0.30 10*3/uL Normal <0.87 [facility] Comment on above: Order Comment: Speci men Type: BLOOD SPECIMENOrdering Facility: [facility] Address: [address] [address] Performed By: #### 5 7021-8 ####[facility] LABORATORYIA [id number] [place] [address] [address] [place] Monocytes/100 WBC (Bld) 5.7 % Normal [facility] Comment on above: Order Comment: Speci men Type: BLOOD SPECIMENOrdering Facility: [facility] Address: [address] [address] Performed By: #### 5 7021-8 ####[facility] LABORATORYCLIA [id number] [place] [address] [place] Neutrophils (Bld) [#/Vol] 2.26 10*3/uL Normal 1.45-7.50 [facility] Comment on above: Order Comment: Speci men Type: BLOOD SPECIMENOrdering Facility: [facility] Address: [address] [address] Performed By: #### 5 7021-8 ####[facility] LABORATORYIA [id number] [place] [address] [place] Neutrophils/100 WBC (Bld) 43.3 % Normal [facility] Comment on above: Order Comment: Speci men Type: BLOOD SPECIMENOrdering Facility: [facility] Address: [address] [address] Performed By: #### 5 7021-8 ####[facility] CENTERIA [id number] [place] [address] [place] Nucleated RBC (Bld) [#/Vol] 10*3/uL Normal <0.01 [facility] Comment on above: Order Comment: Speci men Type: BLOOD SPECIMENOrdering Facility: [facility] Address: [address] [address] Performed By: #### 5 7021-8 ####[facility] LABORATORYIA [id number] [place] [address] [place] Nucleated RBC/100 WBC (Bld) [Ratio] 0.0 /100 WBC Normal [facility] Comment on above: Order Comment: Speci men Type: BLOOD SPECIMENOrdering Facility: [facility] Address: [address] [address] Performed By: #### 5 7021-8 ####[facility]ENTERIA [id number] [facility] [place] [address] [place] Platelet mean volume (Bld) [Entitic vol] 11.4 fL Normal 9.0-12.7 [facility] Comment on above: Order Comment: Speci men Type: BLOOD SPECIMENOrdering Facility: [facility] Address: [address] [place] [address] Performed By: #### 5 7021-8 ####[facility]ENTERIA [id number] [place] [address] [place] Platelets (Bld) [#/Vol] 207 10*3/uL Normal 150-400 [facility] Comment on above: Order Comment: Speci men Type: BLOOD SPECIMENOrdering Facility: [facility] Address: [address] [place], [place] [address] Performed By: #### 5 7021-8 ####[facility] [id number] [place] [address] [place] RBC (Bld) [#/Vol] 4.37 10*6/uL Normal 3.90-5.20 [facility] Comment on above: Order Comment: Speci men Type: BLOOD SPECIMENOrdering Facility: [facility] Address: [address] [place], [place] [address] Performed By: #### 5 7021-8 ####[facility] [id number] [place] [id number] [place] WBC (Bld) [#/Vol] 5.22 10*3/uL Normal 3.70-11.00 [facility] Comment on above: Order Comment: Speci men Type: BLOOD SPECIMENOrdering Facility: [facility] Address: [address] [place], [place] [address] Performed By: #### 5 7021-8 ####[facility] [id number] [place] [address] [place] CNPNon 11-05-2022 CNPN Normal [facility] CONSULTon 11-05-2022 CONSULT Normal [facility] CONSULT Normal [facility] Comprehensive metabolic 2000 panelon 11-05-2022 Albumin [Mass/Vol] 4.2 g/dL Normal 3.9-4.9 [facility] Comment on above: Order Comment: Speci men Type: BLOOD SPECIMENOrdering Facility: [facility] Address: [address] [place] [address] Performed By: #### 2 4323-8, 3040-3 ####[facility] LABORATORYCLIA [id number] [place] [address] [place] ALP [Catalytic activity/Vol] 71 U/L Normal 34-123 [facility] Comment on above: Order Comment: Speci men Type: BLOOD SPECIMENOrdering Facility: [facility] Address: [address] [place] [address] Performed By: #### 2 4323-8, 0-3 ####[facility] LABORATORYCLIA [id number] [place] [address] [place] ALT [Catalytic activity/Vol] 15 U/L Normal 7-38 [facility] Comment on above: Order Comment: Speci men Type: BLOOD SPECIMENOrdering Facility: [facility] Address: [address] [place] [address] Performed By: #### 2 4323-8, 0-3 ####[facility] LABORATORYCLIA [id number] [place] [address] [place] Anion gap [Moles/Vol] 12 mmol/L Normal 9-18 [facility] Comment on above: Order Comment: Speci men Type: BLOOD SPECIMENOrdering Facility: [facility] Address: [address] [place] [address] Performed By: #### 2 4323-8, 3040-3 ####[facility] LABORATORYCLIA [id number] [place] [address] [place] AST [Catalytic activity/Vol] 26 U/L Normal 13-35 [facility] Comment on above: Order Comment: Speci men Type: BLOOD SPECIMENOrdering Facility: [facility] Address: [address] Performed By: #### 2 4323-8, 3039-3 ####[facility] LABORATORYCLIA [id number] [place] [address] [place] Bilirubin [Mass/Vol] 0.4 mg/dL Normal 0.2-1.3 [facility] Comment on above: Order Comment: Speci men Type: BLOOD SPECIMENOrdering Facility: [facility] Address: [address] Performed By: #### 2 4323-8, 3039-3 ####[facility]ENTERIA [id number] [place] [address] [place] Calcium [Mass/Vol] 8.6 mg/dL Normal 8.5-10.2 [facility] Comment on above: Order Comment: Speci men Type: BLOOD SPECIMENOrdering Facility: [facility] Address: [address] Performed By: #### 2 4323-8, 3039-3 ####[facility]ENTERIA [id number] [place] [address] [place] Chloride [Moles/Vol] 107 mmol/L High 97-105 [facility] Comment on above: Order Comment: Speci men Type: BLOOD SPECIMENOrdering Facility: [facility] Address: [address] Performed By: #### 2 4323-8, 3039-3 ####[facility] LABORATORYCLIA [id number] [place] [address] [place] CO2 [Moles/Vol] 22 mmol/L Normal 22-30 [facility] ital Comment on above: Order Comment: Speci men Type: BLOOD SPECIMENOrdering Facility: [facility] Address: [address] Performed By: #### 2 4323-8, 0-3 ####[facility] LABORATORYCLIA [id number] [address] OF [facility] Creatinine [Mass/Vol] 0.87 mg/dL Normal 0.58-0.96 [facility] Comment on above: Order Comment: Geraldo marrero Type: BLOOD SPECIMENOrdering Facility: [facility] Address: [address] [id number] Performed By: #### 2 4323-8, 3040-3 ####[facility] LABORATORYCLIA [id number] [place] [id number] [facility] Creatinine and Glomerular filtration rate.predicted panel (S/P/Bld) 90 mL/min/1.73m??? Normal >=60 [facility] Comment on above: Order Comment: Geraldo marrero Type: BLOOD SPECIMENOrdering Facility: [facility] Address: [address] [place] [address] Result Comment: Jessica mated Glomerular Filtration Rate [...] GFR. Performed By: #### 2 4323-8, 0-3 ####[facility] LABORATORYCLIA [id number] [address] STATES OF [facility] Glucose [Mass/Vol] 87 mg/dL Normal 74-99 [facility] Comment on above: Order Comment: Geraldo marrero Type: BLOOD SPECIMENOrdering Facility: [facility] Address: [address] [place] [address] Result Comment: The [place] [employer] (ADA) provides guidance for cutoff [...] Standards of Medical Care in Diabetes 2016, [place] [employer]. Diabetes Care. 2016.39(Suppl 1). Performed By: #### 2 4323-8, 3039-3 ####[facility] LABORATORYCLIA [id number] [place] [address] [place] Potassium [Moles/Vol] 3.5 mmol/L Low 3.7-5.1 [facility] Comment on above: Order Comment: Speci men Type: BLOOD SPECIMENOrdering Facility: [facility] Address: [address] [place] [address] Performed By: #### 2 4323-8, 3039-3 ####[facility]IA [id number] [place] [address] [place] Protein [Mass/Vol] 6.6 g/dL Normal 6.3-8.0 [facility] Comment on above: Order Comment: Speci men Type: BLOOD SPECIMENOrdering Facility: [facility] Address: [address] [place] [address] Performed By: #### 2 4323-8, 3039-3 ####[facility] CENTERIA [id number] [place] [address] [place] Sodium [Moles/Vol] 141 mmol/L Normal 136-144 [facility] Comment on above: Order Comment: Speci men Type: BLOOD SPECIMENOrdering Facility: [facility] Address: [address] [place] [address] Performed By: #### 2 4323-8, 3039-3 ####[facility]ENTERIA [id number] [place] [address] [place] Urea nitrogen [Mass/Vol] 9 mg/dL Normal 7-21 [facility] Comment on above: Order Comment: Speci men Type: BLOOD SPECIMENOrdering Facility: [facility] Address: [address] [place] [address] Performed By: #### 2 4323-8, 3039-3 ####[facility] LABORATORYCLIA [id number] [facility] [place] [address] [place] ECG COMPLETEon 11-05-2022 ECG COMPLETE Normal [facility] l ED NOTEon 11-05-2022 ED NOTE HNO ID: [id number] Author: Joanne Mario RN Service: ? Author Type: Registered Nurse Type: ED Notes Filed: 11/05/2022 1:56 PM Note Text: Attempt to call report, Nurse taking patient is ROHIT. Will return call when nurse available. Normal [facility] ED NOTE HNO ID: [id number] Author: Joanne Mario RN Service: ? Author Type: Registered Nurse Type: ED Notes Filed: 11/05/2022 1:28 PM Note Text: Patient refused all daily meds but reglan due to nausea. [facility] ED PROV NOTEon 11-05-2022 ED PROV NOTE Normal [facility] HISTORY PHYSICALon HISTORY PHYSICAL Normal [facility] pital [facility] 11-[facility]-19 Lipase [Catalytic activity/Vol] 38 U/L Normal 16-61 [facility] Comment on above: Order Comment: Speci men Type: BLOOD SPECIMENOrdering Facility: [facility] Address: [place] [address] Performed By: #### 2 4323-8, 3040-3 ####[facility] LABORATORYIA [id number] [facility] [place] [address] [place] NURSING PROGon 11-05-2022 NURSING PROG Normal [facility] XR ABD 2V SUPINE W UPR/DECUB /CTLon 11-05-2022 XR ABD 2V SUPINE W UPR/DECUB/CTL [facility] 25(OH)D3 SerPl-mCncon 2022 25-hydroxyvitamin D3 [Mass/Vol] 29.0 ng/mL Low 31.0-80.0 [facility] Comment on above: Order Comment: Speci men Type: BLOOD SPECIMENOrdering Facility: [facility] Address: [place], [place] Result Comment: Clas sification of 25 [place] Vitamin D status:Deficiency/Insufficiency: < or = 30 ng/ml.Sufficiency/Optimal Levels: 31-80 ng/mLToxicity: > 100 ng/mL.Test performed by chemiluminescent immunoassay. Performed By: #### 1 989-3 ####[facility] LABCLIA [id number] [address] [place] Amylase SerPl-cCncon 023 Amylase [Catalytic activity/Vol] 40 U/L Normal 30-104 [facility] Comment on above: Order Comment: Speci men Type: BLOOD SPECIMENOrdering Facility: [facility] Address: [address] [place] [address] Performed By: #### 1 798-8, 2731-8, 2132-9, 2284-8 ####[facility] LABIA [id number] [address] OF [facility] CBC panel Auto (Bld)on 11-04 Erythrocyte distribution width (RBC) [Ratio] 13.2 % Normal 11.5-15.0 [facility] Comment on above: Order Comment: Speci men Type: BLOOD SPECIMENOrdering Facility: [facility] Address: [address] [place] [address] Performed By: #### 5 8410-2 ####[facility] LABIA [id number] [address] [place] Hematocrit (Bld) [Volume fraction] 40.5 % Normal 36.0-46.0 [facility] Comment on above: Order Comment: Speci men Type: BLOOD SPECIMENOrdering Facility: [facility] Address: [address] [place], [place] [address] Performed By: #### 5 8410-2 ####[facility] LABCLIA [id number] [address] [place] Hemoglobin (Bld) [Mass/Vol] 13.6 g/dL Normal 11.5-15.5 [facility] Comment on above: Order Comment: Speci men Type: BLOOD SPECIMENOrdering Facility: [facility] Address: [address] Performed By: #### 5 8410-2 ####[facility] LABIA [id number] [address] [place] MCH (RBC) [Entitic mass] 30.7 pg Normal 26.0-34.0 [facility] Comment on above: Order Comment: Speci men Type: BLOOD SPECIMENOrdering Facility: [facility] Address: [address] Performed By: #### 5 8410-2 ####[facility] LABSPRINGFIELD [facility] [id number] [address] [place] MCHC (RBC) [Mass/Vol] 33.6 g/dL Normal 30.5-36.0 [facility] Comment on above: Order Comment: Speci men Type: BLOOD SPECIMENOrdering Facility: [facility] Address: [address] [place], [place] [address] Performed By: #### 5 8410-2 ####[facility] LABIA [id number] [address] [place] MCV (RBC) [Entitic vol] 91.4 fL Normal 80.0-100.0 [facility] Comment on above: Order Comment: Speci men Type: BLOOD SPECIMENOrdering Facility: [facility] Address: [address] Performed By: #### 5 8410-2 ####[facility] LABIA [id number] [place] [address] [place] Nucleated RBC (Bld) [#/Vol] 10*3/uL Normal <0.01 [facility] Comment on above: Order Comment: Speci men Type: BLOOD SPECIMENOrdering Facility: [facility] Address: [address] [place], [place] [phone] Performed By: #### 5 8410-2 ####[facility] LABCLIA [id number] [place] [address] [place] Platelet mean volume (Bld) [Entitic vol] 12.1 fL Normal 9.0-12.7 [facility] Comment on above: Order Comment: Speci men Type: BLOOD SPECIMENOrdering Facility: [facility] Address: [address] [place] [address] Performed By: #### 5 8410-2 ####[facility] LABIA [id number] [place] [address] [place] Platelets (Bld) [#/Vol] 313 10*3/uL Normal 150-400 [facility] Comment on above: Order Comment: Speci men Type: BLOOD SPECIMENOrdering Facility: [facility] Address: [address] [place], [place] [address] Performed By: #### 5 8410-2 ####[facility] LABIA [id number] [place] [address] [place] RBC (Bld) [#/Vol] 4.43 10*6/uL Normal 3.90-5.20 [facility] Comment on above: Order Comment: Speci men Type: BLOOD SPECIMENOrdering Facility: [facility] Address: [address] [place] [address] Performed By: #### 5 8410-2 ####[facility] LABCLIA [id number] [place] [address] [place] WBC (Bld) [#/Vol] 6.69 10*3/uL Normal 3.70-11.00 [facility] Comment on above: Order Comment: Speci men Type: BLOOD SPECIMENOrdering Facility: [facility] Address: [address] [place], [place] [address] Performed By: #### 5 8410-2 ####[facility] LABCLIA [id number] [place] [address] [place] CNCOon 11-04-2022 CNCO Letter Text Normal [facility] CNOVon 11-04-2022 CNOV Normal [facility] Comprehensive metabolic 2000 panelon 11-04-2022 Albumin [Mass/Vol] 4.3 g/dL Normal 3.9-4.9 [facility] Comment on above: Order Comment: Speci men Type: BLOOD SPECIMENOrdering Facility: [facility] Address: [address] Performed By: #### 5 0190-8, 3040-3, 2276-4, 11084-1 ####[facility] [id number] [place] [address] [place] ALP [Catalytic activity/Vol] 69 U/L Normal 34-123 [facility] Comment on above: Order Comment: Speci men Type: BLOOD SPECIMENOrdering Facility: [facility] Address: [address] [place] [address] Performed By: #### 5 0190-8, 3040-3, 6-4, 24499-4 ####[facility] [id number] [place] [address] [place] ALT [Catalytic activity/Vol] 16 U/L Normal 7-38 [facility] Comment on above: Order Comment: Speci men Type: BLOOD SPECIMENOrdering Facility: [facility] Address: [address] Performed By: #### 5 0190-8, 3040-3, 2276-4, 84141-3 ####[facility] LABSPRINGFIELD [facility] [id number] [place] [address] [place] Anion gap [Moles/Vol] 13 mmol/L Normal 9-18 [facility] Comment on above: Order Comment: Speci men Type: BLOOD SPECIMENOrdering Facility: [facility] Address: [address] [address] Performed By: #### 5 0190-8, 3040-3, 2276-4, 57515-0 ####[facility] LABCLIA [id number] [place] [address] [place] AST [Catalytic activity/Vol] 25 U/L Normal 13-35 [facility] Comment on above: Order Comment: Speci men Type: BLOOD SPECIMENOrdering Facility: [facility] Address: [address] [place] [address] Performed By: #### 5 0190-8, 3040-3, 6-4, 79083-8 ####[facility] LABCLIA [id number] [place] [address] [place] Bilirubin [Mass/Vol] 0.3 mg/dL Normal 0.2-1.3 [facility] Comment on above: Order Comment: Speci men Type: BLOOD SPECIMENOrdering Facility: [facility] Address: [address] [place] [address] Performed By: #### 5 0190-8, 3040-3, 2276-4, 31100-7 ####[facility] LABCLIA [id number] [place] [address] [place] Calcium [Mass/Vol] 9.1 mg/dL Normal 8.5-10.2 [facility] Comment on above: Order Comment: Speci men Type: BLOOD SPECIMENOrdering Facility: [facility] Address: [address] [address] Performed By: #### 5 0190-8, 3040-3, 2276-4, 73449-9 ####[facility] LABCLIA [id number] [place] [address] [place] Chloride [Moles/Vol] 105 mmol/L Normal 97-105 [facility] Comment on above: Order Comment: Speci men Type: BLOOD SPECIMENOrdering Facility: [facility] Address: [address] [place] [address] Performed By: #### 5 0190-8, 3040-3, 2275-4, 48841-7 ####[facility] [id number] [place] [address] [place] CO2 [Moles/Vol] 19 mmol/L Low 22-30 [facility] Comment on above: Order Comment: Speci men Type: BLOOD SPECIMENOrdering Facility: [facility] Address: [address] [place] [address] Performed By: #### 5 0190-8, 3040-3, 2275-4, ####[facility] [id number] [place] [address] [place] Creatinine [Mass/Vol] 0.77 mg/dL Normal 0.58-0.96 [facility] Comment on above: Order Comment: Speci men Type: BLOOD SPECIMENOrdering Facility: [facility] Address: [address] [place] [address] Performed By: #### 5 0190-8, 3040-3, 4, ####[facility] [id number] [place] [address] [place] Creatinine and Glomerular filtration rate.predicted panel (S/P/Bld) 105 mL/min/1.73m??? Normal >=60 [facility] Comment on above: Order Comment: Speci men Type: BLOOD SPECIMENOrdering Facility: [facility] Address: [address] [place] [address] Result Comment: Jessica mated Glomerular Filtration Rate [...] GFR. Performed By: #### 5 0190-8, 3040-3, 2275-4, ####[facility] LABCLIA [id number] [place] [address] [place] Glucose [Mass/Vol] 224 mg/dL High 74-99 [facility] Comment on above: Order Comment: Speci men Type: BLOOD SPECIMENOrdering Facility: [facility] Address: [address] [place], [place] [address] Result Comment: The [place] [employer] (ADA) provides guidance for cutoff [...] Standards of Medical Care in Diabetes 2016, [place] [employer]. Diabetes Care. 2016.39(Suppl 1). Performed By: #### 5 0190-8, 0-3, 2275-4, ####[facility] LABCLIA [id number] [address] [address] [place] Potassium [Moles/Vol] 3.7 mmol/L Normal 3.7-5.1 [facility] Comment on above: Order Comment: Speci men Type: BLOOD SPECIMENOrdering Facility: [facility] Address: [address] [place], [place] [phone] Performed By: #### 5 0190-8, 3040-3, 2275-4, ####[facility] LABCLIA [id number] [address] [address] [place] Protein [Mass/Vol] 6.9 g/dL Normal 6.3-8.0 [facility] Comment on above: Order Comment: Speci men Type: BLOOD SPECIMENOrdering Facility: [facility] Address: [address] [address] Performed By: #### 5 0190-8, 3040-3, 2275-4, 92512-8 ####[facility] LABCLIA [id number] [place] [address] [place] Sodium [Moles/Vol] 137 mmol/L Normal 136-144 [facility] Comment on above: Order Comment: Speci men Type: BLOOD SPECIMENOrdering Facility: [facility] Address: [address] [place] [address] Performed By: #### 5 0190-8, 3040-3, 4, 99281-4 ####[facility] LABCLIA [id number] [place] [address] [place] Urea nitrogen [Mass/Vol] 9 mg/dL Normal 7-21 [facility] Comment on above: Order Comment: Speci men Type: BLOOD SPECIMENOrdering Facility: [facility] Address: [address] [place] [address] Performed By: #### 5 0190-8, 3040-3, 4, 60393-3 ####[facility] LABCLIA [id number] [place] [address] [place] Ferritin SerPl-mCncon 2022 Ferritin [Mass/Vol] 13.2 ng/mL Low 14.7-205.1 [facility] Comment on above: Order Comment: Speci men Type: BLOOD SPECIMENOrdering Facility: [facility] Address: [address] [address] Performed By: #### 5 0190-8, 3040-3, 2275-4, 72830-4 ####[facility] LABCLIA [id number] [place] [address] [place] Folate SerPl-mCncon 11-05-19 Folate [Mass/Vol] 9.3 ng/mL Normal >4.7 [facility] Comment on above: Order Comment: Speci men Type: BLOOD SPECIMENOrdering Facility: [facility] Address: [address] [place] [address] Performed By: #### 1 798-8, 2731-8, 2132-9, 2284-8 ####[facility] LABCLIA [id number] [address] [place] Iron and Iron binding capaci ty panelon 11-04-2022 Iron [Mass/Vol] 52 ug/dL Normal 41-186 [facility] Comment on above: Order Comment: Speci men Type: BLOOD SPECIMENOrdering Facility: [facility] Address: [address] [place] [address] Performed By: #### 5 0190-8, 3040-3, 6-4, 79355-5 ####[facility] LABCLIA [id number] [address] Iron binding capacity [Mass/Vol] 348 ug/dL Normal 232-386 [facility] Comment on above: Order Comment: Speci men Type: BLOOD SPECIMENOrdering Facility: [facility] Address: [address] [place] [address] Performed By: #### 5 0190-8, 3040-3, 2276-4, 44320-1 ####[facility] LABCLIA [id number] [address] STATES OF [facility] Iron/TIBC [Molar ratio] 14.9 % Low 15.0-57.0 [facility] Comment on above: Order Comment: Speci men Type: BLOOD SPECIMENOrdering Facility: [facility] Address: [address] [place] [address] Performed By: #### 5 0190-8, 3040-3, 2276-4, 52900-5 ####[facility] LABCLIA [id number] [place] [id number] [place] Lipase SerPl-cCncon 11-05-19 23 Lipase [Catalytic activity/Vol] 35 U/L Normal 16-61 [facility] Comment on above: Order Comment: Speci men Type: BLOOD SPECIMENOrdering Facility: [facility] Address: [address] [place] [address] Performed By: #### 5 0190-8, 3040-3, 2276-4, 09942-9 ####[facility] LABCLIA [id number] [place] [address] [place] PTH-Intact SerPl-mCncon 10-17 Parathyrin.intact [Mass/Vol] 27 pg/mL Normal 15-65 [facility] Comment on above: Order Comment: Speci men Type: BLOOD SPECIMENOrdering Facility: [facility] Address: [address] [place] [address] Performed By: #### 1 798-8, 2731-8, 2132-9, 2284-8 ####[facility] LABCLIA [id number] [place] [address] [place] US ABD RIGHT UPPER QUADRANTo n 11-04-2022 US ABD RIGHT UPPER QUADRANT Normal [facility] VITAMIN B1 (THIAMINE), WHOLE BLOODon 11-04-2022 Thiamine (Bld) [Moles/Vol] 165.0 nmol/L Normal 84.3-213.3 [facility] Comment on above: Order Comment: Lyssai elida Type: BLOOD SPECIMENOrdering Facility: [facility] Address: [address] [place], [place] [phone] Result Comment: This assay measures the concentration of thiamine diphosphate (TDP), the primary active form of vitamin B1. Approximately 90 percent of vitamin B1 present in whole blood is TDP. Thiamine and thiamine monophosphate, which comprise the remaining 10 percent, are not measured.This test was developed and its performance characteristics determined by [facility]'s Lucie Harmon [facility] [facility] [place] ([facility] It has not been cleared or approved by the FDA. [facility] is regulated under CLIA as qualified to perform high-complexity testing. This test is used for clinical purposes. It should not be regarded as investigational or for research. Performed By: #### B 1WB ####[facility] LABCLIA [id number] [place] [address] [place] Vit A SerPl-mCncon 3 Retinol [Mass/Vol] 0.44 mg/L Normal 0.30-1.20 [facility] Comment on above: Order Comment: Speci men Type: BLOOD SPECIMENOrdering Facility: [facility] Address: [address] [address] Result Comment: This test was developed and its performance characteristics determined by [facility]'s [facility] Pathology and Laboratory [facility] [place] ([facility] It has not been cleared or approved by the FDA. [facility] is regulated under CLIA as qualified to perform high-complexity testing. This test is used for clinical purposes. It should not be regarded as investigational or for research. Performed By: #### 2 923-1 ####[facility] LABIA [id number] [place] [address] [place] Vit B12 SerPl-mCncon 023 Cobalamin (Vitamin B12) [Mass/Vol] 1018 pg/mL Normal 232-1245 [facility] Comment on above: Order Comment: Speci men Type: BLOOD SPECIMENOrdering Facility: [facility] Address: [address] [place] [address] Performed By: #### 1 798-8, 2731-8, 2132-9, 2284-8 ####[facility] [id number] [place] [address] [place] Zinc SerPl-mCncon 11-04-2022 Zinc [Mass/Vol] 51 ug/dL Low 60-120 [facility] Comment on above: Order Comment: Speci men Type: BLOOD SPECIMENOrdering Facility: [facility] Address: [address], [place] [address] Result Comment: This test was developed and its performance characteristics determined by [facility]'s [facility] Pathology and [facility] [place] ([facility]). It has not been cleared or approved by the FDA. [facility] is regulated under CLIA as qualified to perform high-complexity testing. This test is used for clinical purposes. It should not be regarded as investigational or for research. Performed By: #### 5 763-8 ####[facility] LABCLIA [id number] [place] [id number] [facility] Ambulatory Visit Summaryon 0 11-03-2022 Ambulatory Visit Summary Normal [address] [place] [address]- \.br\ Medications\.br\ What How Much When Why [...] Metabolic syndrome\.br\ PCOS- polycystic ovary syndrome\.br\ \.br\ [facility] Family Medicine Office/Clini c Noteon 11-03-2022 Family Medicine Office/Clinic Note Normal [facility] Comment on above: Result Comment: Elec tronically Signed By: Jaquan Paula\.br\Date and Time Signed: 11/03/22 11:43 EDT Provider Letteron 11-03-2022 Provider Letter Normal [facility] CBCon 11-02-2022 ABSOLUTE BAS 0.0 10*3/uL Normal 0.0-0.2 [facility] Comment on above: Performed By: #### A CBC, LIPA2, CMPF #### [place] [address] ABSOLUTE EOS 0.0 10*3/uL Normal 0.0-0.7 [facility] Comment on above: Performed By: #### A CBC, LIPA2, CMPF #### [place] [address] ABSOLUTE NEUTROPHIL COUNT 3.6 10*3/uL Normal 1.4-6.5 [facility] Comment on above: Performed By: #### A CBC, LIPA2, CMPF #### [place] [address] Basophils/100 WBC (Bld) 0.3 % Normal 0.0-2.0 [facility] Comment on above: Performed By: #### A CBC, LIPA2, CMPF #### Testing performed at [address] [address] DTYPE AUTO DIFF Normal [facility] Comment on above: Performed By: #### A CBC, LIPA2, CMPF #### Testing performed at [address] [address] Eosinophils/100 WBC (Bld) 0.1 % Normal 0.0-11.0 [facility] Comment on above: Performed By: #### A CBC, LIPA2, CMPF #### Testing performed at [address] [address] Lymphocytes (Bld) [#/Vol] 0.8 10*3/uL Low 1.2-3.4 [facility] Comment on above: Performed By: #### A CBC, LIPA2, CMPF #### Testing performed at [address] [address] Lymphocytes/100 WBC (Bld) 17.9 % Low 20.0-55.0 [facility] Comment on above: Performed By: #### A CBC, LIPA2, CMPF #### Testing performed at [address] [address] Monocytes (Bld) [#/Vol] 0.1 10*3/uL Normal 0.0-0.7 [facility] Comment on above: Performed By: #### A CBC, LIPA2, CMPF #### Testing performed at [address] [address] Monocytes/100 WBC (Bld) 2.3 % Normal 0.0-10.0 [facility] Comment on above: Performed By: #### A CBC, LIPA2, CMPF #### Testing performed at [address] [address] Neutrophils/100 WBC (Bld) 79.4 % High 37.0-75.0 [facility] Comment on above: Performed By: #### A CBC, LIPA2, CMPF #### Testing performed at [address] [address] Erythrocyte distribution width (RBC) [Ratio] 14.8 % High 11.5-14.5 [facility] Comment on above: Performed By: #### A CBC, LIPA2, CMPF #### Testing performed at [address] [address] Hematocrit (Bld) [Volume fraction] 38.8 % Normal 36.0-48.0 [facility] Comment on above: Performed By: #### A CBC, LIPA2, CMPF #### Testing performed at [address] [address] Hemoglobin (Bld) [Mass/Vol] 13.0 g/dL Normal 12.0-16.0 [facility] Comment on above: Performed By: #### A CBC, LIPA2, CMPF #### Testing performed at [address] [address] MCH (RBC) [Entitic mass] 30.6 pg Normal 26.0-35.0 [facility] Comment on above: Performed By: #### A CBC, LIPA2, CMPF #### Testing performed at [address] [address] MCHC (RBC) [Mass/Vol] 33.5 g/dL Normal 27.0-37.0 [facility] Comment on above: Performed By: #### A CBC, LIPA2, CMPF #### Testing performed at [address] [address] MCV (RBC) [Entitic vol] 91.2 fL Normal 80.0-100.0 [facility] Comment on above: Performed By: #### A CBC, LIPA2, CMPF #### Testing performed at [address] [address] Platelet mean volume (Bld) [Entitic vol] 9.9 fL Normal 7.4-11.0 [facility] Comment on above: Performed By: #### A CBC, LIPA2, CMPF #### Testing performed at [address] [address] Platelets (Bld) [#/Vol] 234 10*3/uL Normal 130-400 [facility] Comment on above: Performed By: #### A CBC, LIPA2, CMPF #### Testing performed at [address] [address] RBC (Bld) [#/Vol] 4.25 10*6/uL Normal 4.0-5.4 [facility] Comment on above: Performed By: #### A CBC, LIPA2, CMPF #### Testing performed at [address] [address] WBC (Bld) [#/Vol] 4.5 10*3/uL Normal 3.6-11.0 [facility] Comment on above: Performed By: #### A CBC, LIPA2, CMPF #### Testing performed at [address] [address] CBC, EDIF, PLATELETon 2022 ABSOLUTE BASOPHIL COUNT 0.0 10*3/uL 0.0 - 0.2 10*3/uL [facility] Basophils/100 WBC (Bld) 0.3 % 0.0 - 2.0 % [facility] Differential cell count method Nom (Bld) AUTO DIFF % [facility] Eosinophils (Bld) [#/Vol] 0.0 10*3/uL 0.0 - 0.7 10*3/uL [facility] Eosinophils/100 WBC (Bld) 0.1 % 0.0 - 11.0 % [facility] Erythrocyte distribution width (RBC) [Ratio] 14.8 % High 11.5 - 14.5 % [facility] Hematocrit (Bld) [Volume fraction] 38.8 % 36.0 - 48.0 % [facility] Hemoglobin (Bld) [Mass/Vol] 13.0 g/dL [facility] Interpretation and review of laboratory results Abnormal [facility] Lymphocytes (Bld) [#/Vol] 0.8 10*3/uL Low 1.2 - 3.4 10*3/uL [facility] Lymphocytes/100 WBC (Bld) 17.9 % Low 20.0 - 55.0 % [facility] MCH (RBC) [Entitic mass] 30.6 pg 26.0 - 35.0 PG [facility] MCHC (RBC) [Mass/Vol] 33.5 g/dL [facility] MCV (RBC) [Entitic vol] 91.2 fL [facility] Monocytes (Bld) [#/Vol] 0.1 10*3/uL 0.0 - 0.7 10*3/uL [facility] Monocytes/100 WBC (Bld) 2.3 % 0.0 - 10.0 % [facility] Neutrophils (Bld) [#/Vol] 3.6 10*3/uL 1.4 - 6.5 10*3/uL [facility] Neutrophils/100 WBC (Bld) 79.4 % High 37.0 - 75.0 % [facility] Platelet mean volume (Bld) [Entitic vol] 9.9 fL [facility] Platelets (Bld) [#/Vol] 234 10*3/uL 130 - 400 10*3/uL [facility] RBC (Bld) [#/Vol] 4.25 10*6/uL 4.0 - 5.4 10*6/u L [facility] WBC (Bld) [#/Vol] 4.5 10*3/uL 3.6 - 11.0 10*3/u L [facility] CMP FASTINGon 11-02-2022 A:G RATIO 1.5 RATIO Normal [facility] Comment on above: Performed By: #### A CBC, LIPA2, CMPF #### Testing performed at [address] [address] ALBUMIN 4.4 G/dl Normal 3.5-5.0 [facility] Comment on above: Performed By: #### A CBC, LIPA2, CMPF #### Testing performed at [address] [address] ALP [Catalytic activity/Vol] 87 U/L Normal 38-126 [facility] Comment on above: Performed By: #### A CBC, LIPA2, CMPF #### Testing performed at [address] [address] ALT [Catalytic activity/Vol] 22 U/L Normal <35 [facility] Comment on above: Performed By: #### A CBC, LIPA2, CMPF #### Testing performed at [address] [address] AST [Catalytic activity/Vol] 34 U/L Normal 14-36 [facility] Comment on above: Performed By: #### A CBC, LIPA2, CMPF #### Testing performed at [address] [address] Bilirubin [Mass/Vol] 0.4 mg/dL Normal 0.2-1.3 [facility] Comment on above: Performed By: #### A CBC, LIPA2, CMPF #### Testing performed at [address] [address] Calcium [Mass/Vol] 9.0 mg/dL Normal 8.4-10.2 [facility] Comment on above: Performed By: #### A CBC, LIPA2, CMPF #### Testing performed at [address] [address] Chloride [Moles/Vol] 106 mmol/L Normal 98-107 [facility] Comment on above: Result Comment: Yessy plascencia note: Triglyceride levels of 600mg/dL or higher may positively bias chloride results by approximately 2.1 mmol Performed By: #### A CBC, LIPA2, CMPF #### Testing performed at [address] [address] CO2 [Moles/Vol] 22 mmol/L Normal 22-30 [facility] Comment on above: Performed By: #### A CBC, LIPA2, CMPF #### Testing performed at [address] [address] Creatinine [Mass/Vol] 0.80 mg/dL Normal 0.70-1.20 [facility] Comment on above: Performed By: #### A CBC, LIPA2, CMPF #### Testing performed at [address] [address] EST. GFR, 106 ml/min/1.73sq.m [facility] Comment on above: Performed By: #### A CBC, LIPA2, CMPF #### Testing performed at [address] [address] EST. GFR,Non 88 ml/min/1.73sq.m [facility] Comment on above: Performed By: #### A CBC, LIPA2, CMPF #### Testing performed at [address] [address] GFR Information Average GFR for 30-39 years old = 107. Normal [facility] Comment on above: Result Comment: Product Accountant alejandra Kidney disease, GFR = <60. Kidney failure, GFR = <15. The GFR estimate is not adjusted for extreme body surface area or acute process, nor has it been validated for women or ethnic groups other than and . Performed By: #### A CBC, LIPA2, CMPF #### Testing performed at [address] [address] Glucose [Mass/Vol] 119 mg/dL High 70-100 [facility] Comment on above: Result Comment: NORMAL <100 mg/dL PREDIABETES 101-126 mg/dL DIABETES 126 mg/dL or higher Performed By: #### A CBC, LIPA2, CMPF #### Testing performed at [address] [address] Potassium [Moles/Vol] 4.2 mmol/L Normal 3.5-5.1 [facility] Comment on above: Performed By: #### A CBC, LIPA2, CMPF #### Testing performed at [address] [address] Protein [Mass/Vol] 7.3 g/dL Normal 6.3-8.2 [facility] Comment on above: Performed By: #### A CBC, LIPA2, CMPF #### Testing performed at [address] [address] Sodium [Moles/Vol] 138 mmol/L Normal 137-145 [facility] Comment on above: Performed By: #### A CBC, LIPA2, CMPF #### Testing performed at [address] [address] Urea nitrogen [Mass/Vol] 8 mg/dL Normal 7-20 [facility] Comment on above: Performed By: #### A CBC, LIPA2, CMPF #### Testing performed at [address] [address] CNPNon 11-02-2022 CNPN Normal [facility] METABOLIC PANE Nestor 11-02-2022 Albumin [Mass/Vol] 4.4 G/dl 3.5 - 5.0 G/dl [facility] Albumin/Globulin [Mass ratio] 1.5 {ratio} RATIO [facility] ALP [Catalytic activity/Vol] 87 U/L [facility] ALT [Catalytic activity/Vol] 22 U/L NINF [facility] AST [Catalytic activity/Vol] 34 U/L [facility] Bilirubin [Mass/Vol] 0.4 mg/dL [facility] Calcium [Mass/Vol] 9.0 mg/dL [facility] Chloride [Moles/Vol] 106 mmol/L [facility] Comment on above: Please note: Triglyc eride levels of 600mg/dL or higher may positively bias chloride results by approximately 2.1 mmol CO2 [Moles/Vol] 22 mmol/L [facility] Creatinine [Mass/Vol] 0.80 mg/dL [facility] GFR COMMENT Average GFR for 30-39 years old = 107. [facility] Comment on above: Chronic Kidney disea se, GFR = <60. Kidney failure, GFR = <15. The GFR estimate is not adjusted for extreme body surface area or acute process, nor has it been validated for women or ethnic groups other than and . GFR/1.73 sq M.predicted among blacks MDRD (S/P/Bld) [Vol rate/Area] 106 mL/min/{1.73_m2} ml/min/1.73sq.m [facility] GFR/1.73 sq M.predicted among non-blacks MDRD (S/P/Bld) [Vol rate/Area] 88 mL/min/{1.73_m2} ml/min/1.73sq.m [facility] Glucose post fast [Mass/Vol] 119 mg/dL High [facility] Comment on above: NORMAL <100 mg/dL PREDIABETES 101-126 mg/dL DIABETES 126 mg/dL or higher Interpretation and review of laboratory results Abnormal [facility] Potassium [Moles/Vol] 4.2 mmol/L [facility] Protein [Mass/Vol] 7.3 g/dL [facility] Sodium [Moles/Vol] 138 mmol/L [facility] Urea nitrogen [Mass/Vol] 8 mg/dL [facility] HCG ( test) Ql (U)o n 11-02-2022 [facility] HCG QUALITATIVE, URINEon HCG ( test) Ql (U) Negative NEGATIVE [facility] LACTATE, BLOODon 11-02-2022 Lactate [Moles/Vol] 1.3 mmol/L 0.7 - 2.0 mmol/L [facility] LACTATE,BLOODon 11-02-2022 Lactate [Moles/Vol] 1.3 mmol/L Normal 0.7-2.0 [facility] Comment on above: Performed By: #### L ACTAC #### Testing performed at [address] [address] LIPASEon 11-02-2022 Lipase [Catalytic activity/Vol] 105 U/L 23 - 300 U/L [facility] LIPASE,SERUMon 11-02-2022 LIPASE,SERUM 105 U/L Normal 23-300 [facility] Comment on above: Performed By: #### A CBC, LIPA2, CMPF #### Testing performed at [address] [address] No Panel Informationon 11-02 [facility] RAD - MISCon 11-02-2022 RAD - MISC [id number] B2#[id number] Normal [facility] URINALYSIS, MACROon 11-03-19 Bilirubin Ql (U) Negative NEGATIVE [facility] Clarity (U) CLEAR CLEAR [facility] Color (U) YELLOW YELLOW [facility] Glucose Test strip (U) [Mass/Vol] Negative NEGATIVE mg/dl [facility] Hemoglobin Ql (U) Negative NEGATIVE [facility] Interpretation and review of laboratory results Abnormal [facility] Ketones (U) [Mass/Vol] Negative NEGATIVE mg/dl [facility] Leukocyte esterase Test strip Ql (U) Negative NEGATIVE [facility] Nitrite Ql (U) Negative NEGATIVE [facility] pH (U) 8.5 [pH] High 5.0 - 7.0 [facility] Protein Ql (U) Negative NEGATIVE mg/dl [facility] Specific gravity (U) [Rel density] 1.020 1.010 - 1.025 [facility] Urobilinogen (U) [Mass/Vol] 1.0 mg/dL [facility] URINE HCG QUALon 11-02-2022 Beta HCG ( test) Ql (U) Negative Normal NEGATIVE [facility] Comment on above: Performed By: #### U HCGT, UMAC #### Testing performed at [address] [address] URINE MACROSCOPICon 11-03-19 Bilirubin Ql (U) Negative Normal NEGATIVE [facility] Comment on above: Performed By: #### U HCGT, UMAC #### Testing performed at [address] [address] Clarity (U) CLEAR Normal CLEAR [facility] Comment on above: Performed By: #### U HCGT, UMAC #### Testing performed at [address] [address] Color (U) YELLOW Normal YELLOW [facility] Comment on above: Performed By: #### U HCGT, UMAC #### Testing performed at [address] [address] Glucose Ql (U) Negative Normal NEGATIVE [facility] Comment on above: Performed By: #### U HCGT, UMAC #### Testing performed at [address] [address] pH (U) 8.5 [pH] High 5.0-7.0 [facility] Comment on above: Performed By: #### U HCGT, UMAC #### Testing performed at [address] [place] [address] URINE HEMOGLOBIN Negative Normal NEGATIVE [facility] Comment on above: Performed By: #### U HCGT, UMAC #### Testing performed at [address] [place] [address] URINE KETONE Negative Normal NEGATIVE [facility] Comment on above: Performed By: #### U HCGT, UMAC #### Testing performed at [address] [address] URINE LEUKOTEST Negative Normal NEGATIVE [facility] Comment on above: Performed By: #### U HCGT, UMAC #### Testing performed at [address] [address] URINE NITRATES Negative Normal NEGATIVE [facility] Comment on above: Performed By: #### U HCGT, UMAC #### Testing performed at [address] [address] URINE SPEC GRAVITY 1.020 Normal 1.010-1.025 [facility] Comment on above: Performed By: #### U HCGT, UMAC #### Testing performed at [address] [address] URINE TOTAL PROTEIN Negative Normal NEGATIVE [facility] Comment on above: Performed By: #### U HCGT, UMAC #### Testing performed at [address] [address] Urobilinogen Qn (U) 1.0 {Munir'U}/dL Normal 0.2-1.0 [facility] Comment on above: Performed By: #### U HCGT, UMAC #### Testing performed at [address] [address] CBC with Auto Differentialon 10-31-2022 Basophils (Bld) [#/Vol] [facility] Basophils/100 WBC (Bld) 0 % 0 - 2 % [facility] Eosinophils (Bld) [#/Vol] 0.03 10*3/uL [facility] Eosinophils/100 WBC (Bld) 0 % Low 1 - 4 % [facility] Erythrocyte distribution width (RBC) [Ratio] 12.8 % 11.8 - 14.4 % [facility] Hematocrit (Bld) [Volume fraction] 38.9 % 36.3 - 47.1 % [facility] Hemoglobin (Bld) [Mass/Vol] 13.3 g/dL 11.9 - 15.1 g/dL [facility] Immature granulocytes (Bld) [#/Vol] [facility] Immature granulocytes/100 WBC (Bld) 0 % 0 [facility] Interpretation and review of laboratory results Abnormal [facility] Lymphocytes/100 WBC (Bld) 19 % Low 24 - 43 % [facility] Lymphocytes/100 WBC (Bld) 1.46 % [facility] MCH (RBC) [Entitic mass] 30.6 pg 25.2 - 33.5 pg [facility] MCHC (RBC) [Mass/Vol] 34.2 g/dL 28.4 - 34.8 g/dL [facility] MCV (RBC) [Entitic vol] 89.4 fL 82.6 - 102.9 fL [facility] Monocytes/100 WBC (Bld) 5 % 3 - 12 % [facility] Monocytes/100 WBC (Bld) 0.41 % [facility] Neutrophils/100 WBC (Bld) 76 % High 36 - 65 % [facility] Nucleated RBC/100 WBC (Bld) [Ratio] 0.0 % 0.0 per 100 WBC [facility] Platelet mean volume (Bld) [Entitic vol] 12.0 fL 8.1 - 13.5 fL [facility] Platelets (Bld) [#/Vol] 246 10*3/uL [facility] RBC (Bld) [#/Vol] 4.35 10*6/uL 3.95 - 5.11 m/uL [facility] Segmented neutrophils/100 WBC (Bld) 5.66 % [facility] WBC other (Bld) [#/Vol] 7.6 [facility] CBC with Diffon 10-31-2022 Abs. Basophil <0.03 Normal 0.00-0.20 [facility] Comment on above: Performed By: #### L JUDITH BROWN, CDP #### [facility] [address] [place] [address] [employer] Assembly Repairer: Baldomero Espinoza MD Abs.Imm.Granulocyte <0.03 Normal 0.00-0.30 [facility] Comment on above: Performed By: #### L KEVIN CP, CDP #### [facility] [address] [place] [address] [employer] Repairer: Baldomero Espinoza MD Abs.Neutrophil (Seg) 5.66 k/uL Normal 1.50-8.10 [facility] Comment on above: Performed By: #### L JUDITH BROWN, CDP #### [facility] [address] [place] [address] [employer] Repairer: Baldomero Espinoza MD Basophils/100 WBC (Bld) 0 % Normal 0-2 [facility] Comment on above: Performed By: #### L IP, CP, CDP #### [address] [place], [place] [id number] [employer] Repairer: Baldomero Espinoza MD Eosinophils (Bld) [#/Vol] 0.03 10*3/uL Normal 0.00-0.44 [facility] Comment on above: Performed By: #### L IP, CP, CDP #### [address] [place], [place] [phone] [employer] Repairer: Baldomero Espinoza MD Eosinophils/100 WBC (Bld) 0 % Low 1-4 [facility] Comment on above: Performed By: #### L IP, CP, CDP #### [address] [place], [facility] [employer] Repairer: Baldomero Espinoza MD Erythrocyte distribution width (RBC) [Ratio] 12.8 % Normal 11.8-14.4 [facility] Comment on above: Performed By: #### L KEVIN CP, CDP #### [address] [place], [place] [id number] [employer] Repairer: Baldomero Espinoza MD Hematocrit (Bld) [Volume fraction] 38.9 % Normal 36.3-47.1 [facility] Comment on above: Performed By: #### L IP CP, CDP #### [address] [place], [place] [id number] [employer] Repairer: Baldomero Espinoza MD Hemoglobin (Bld) [Mass/Vol] 13.3 g/dL Normal 11.9-15.1 [facility] Comment on above: Performed By: #### L IP, CP, CDP #### [address] [place], [place] [phone] [employer] Repairer: Baldomero Espinoza MD Immature granulocytes/100 WBC (Bld) 0 % Normal 0 [facility] Comment on above: Performed By: #### L IP, CP, CDP #### [facility] [address] [place], [place] [id number] [employer] Repairer: Baldomero Espinoza MD Lymphocytes (Bld) [#/Vol] 1.46 10*3/uL Normal 1.10-3.70 [facility] Comment on above: Performed By: #### L IP, CP, CDP #### [facility] [address] [place], [facility] [employer] Repairer: Baldomero Espinoza MD Lymphocytes/100 WBC (Bld) 19 % Low 24-43 [facility] Comment on above: Performed By: #### L KEVIN CP, CDP #### [address] [place] [id number] [employer] Repairer: Baldomero Espinoza MD MCH (RBC) [Entitic mass] 30.6 pg Normal 25.2-33.5 [facility] Comment on above: Performed By: #### L JUDITH BROWN, CDP #### [address] [place], [place] [id number] [employer] Repairer: Baldomero Espinoza MD MCHC (RBC) [Mass/Vol] 34.2 g/dL Normal 28.4-34.8 [facility] Comment on above: Performed By: #### L KEVIN CP, CDP #### [facility] [address] [place] [address] [place], [facility] [employer] Repairer: Baldomero Espinoza MD MCV (RBC) [Entitic vol] 89.4 fL Normal 82.6-102.9 [facility] Comment on above: Performed By: #### L KEVIN CP, CDP #### [address] [place] [address] [employer] Repairer: Baldomero Espinoza MD Monocytes (Bld) [#/Vol] 0.41 10*3/uL Normal 0.10-1.20 [facility] Comment on above: Performed By: #### L IP, CP, CDP #### [facility] [address] [place], [place] [address] [employer]airer: Baldomero Espinoza MD Monocytes/100 WBC (Bld) 5 % Normal 3-12 [facility] Comment on above: Performed By: #### L IP, CP, CDP #### [facility] [address] [place], [facility] [employer] Repairer: Baldomero Espinoza MD Neutrophil (Seg) 76 % High 36-65 [facility] Comment on above: Performed By: #### L IP, CP, CDP #### [facility] [address] [place], [facility] [employer] Repairer: Baldomero Espinoza MD NRBC Automated 0.0 per 100 WBC Normal 0.0 [facility] Comment on above: Performed By: #### L IP, CP, CDP #### [facility] [address] [place], [facility] [employer] Repairer: Baldomero Espinoza MD Platelet mean volume (Bld) [Entitic vol] 12.0 fL Normal 8.1-13.5 [facility] Comment on above: Performed By: #### L IP, CP, CDP #### [address] [place], [facility] [employer] Repairer: Baldomero Espinoza MD Platelets (Bld) [#/Vol] 246 10*3/uL Normal 138-453 [facility] Comment on above: Performed By: #### L IP, CP, CDP #### [facility] [address] [place], [place] [address] [employer] Repairer: Baldomero Espinoza MD RBC (Bld) [#/Vol] 4.35 10*6/uL Normal 3.95-5.11 [facility] Comment on above: Performed By: #### L IP, CP, CDP #### [facility] [address] [place] [address] [employer] Repairer: Baldomero Espinoza MD WBC (Bld) [#/Vol] 7.6 10*3/uL Normal 3.5-11.3 [facility] Comment on above: Performed By: #### L IP, CP, CDP #### [facility] [address] [place] [address] [employer] Repairer: Baldomero Espinoza MD [facility] Albumin [Mass/Vol] 4.5 g/dL 3.5 - 5.2 g/dL [facility] Albumin/Globulin [Mass ratio] 1.7 {ratio} 1.0 - 2.5 [facility] ALP [Catalytic activity/Vol] 76 U/L 35 - 104 U/L [facility] ALT [Catalytic activity/Vol] 14 U/L 5 - 33 U/L [facility] Anion gap [Moles/Vol] 12 mmol/L 9 - 17 mmol/L [facility] AST [Catalytic activity/Vol] 24 U/L NINF - 32 U/L [facility] Bilirubin [Mass/Vol] 0.3 mg/dL 0.3 - 1.2 mg/dL [facility] Calcium [Mass/Vol] 9.1 mg/dL 8.6 - 10.4 mg/dL [facility] Chloride [Moles/Vol] 106 mmol/L 98 - 107 mmol/L [facility] CO2 [Moles/Vol] 18 mmol/L Low 20 - 31 mmol/L [facility] Creatinine [Mass/Vol] 0.7 mg/dL 0.5 - 0.9 mg/dL [facility] GFR/1.73 sq M.predicted MDRD (S/P/Bld) [Vol rate/Area] - PINF [facility] Comment on above: These results are [...] [Mass/Vol] 87 mg/dL 70 - 99 mg/dL [facility] Interpretation and review of laboratory results Abnormal [facility] Potassium [Moles/Vol] 3.8 mmol/L 3.7 - 5.3 mmol/L [facility] Protein [Mass/Vol] 7.2 g/dL 6.4 - 8.3 g/dL [facility] Sodium [Moles/Vol] 136 mmol/L 135 - 144 mmol/L [facility] Urea nitrogen [Mass/Vol] 7 mg/dL 6 - 20 mg/dL [facility] Urea nitrogen/Creatinine [Mass ratio] 10 mg/mg 9 - 20 [facility] Comp Metabolic Profon 2022 Albumin [Mass/Vol] 4.5 g/dL Normal 3.5-5.2 [facility] Comment on above: Performed By: #### L IP, CP, CDP #### [facility] [address] [place] [address] [employer] Repairer: Baldomero Espinoza MD Albumin/Glob Ratio 1.7 Normal 1.0-2.5 [facility] Comment on above: Performed By: #### L IP, CP, CDP #### [facility] [address] [place] [address] [employer] Repairer: Baldomero Espinoza MD Alkaline Phos 76 U/L Normal 35-104 [facility] Comment on above: Performed By: #### L IP, CP, CDP #### [facility] [address] [place] [address] [employer] Repairer: Baldomero Espinoza MD ALT [Catalytic activity/Vol] 14 U/L Normal 5-33 [facility] Comment on above: Performed By: #### L IP, CP, CDP #### [facility] [address] [place] [address] [employer] Repairer: Baldomero Espinoza MD Anion gap [Moles/Vol] 12 mmol/L Normal 9-17 [facility] Comment on above: Performed By: #### L IP, CP, CDP #### [facility] [address] [place] [address] [employer] Repairer: Baldomero Espinoza MD AST [Catalytic activity/Vol] 24 U/L Normal <32 [facility] Comment on above: Performed By: #### L IP, CP, CDP #### [facility] [address] [place] [address] [employer] Repairer: Baldomero Espinoza MD Bilirubin [Mass/Vol] 0.3 mg/dL Normal 0.3-1.2 [facility] Comment on above: Performed By: #### L IP, CP, CDP #### [address] [place] [address] [employer] Repairer: Baldomero Espinoza MD BUN/CRE Ratio 10 Normal 9-20 [facility] Comment on above: Performed By: #### L IP, CP, CDP #### [address] [place], [place] [address] [employer] Repairer: Baldomero Espinoza MD Calcium [Mass/Vol] 9.1 mg/dL Normal 8.6-10.4 [facility] Comment on above: Performed By: #### L IP, CP, CDP #### [facility] [address] [place] [address] [place] [place], [place] [address] [employer] Repairer: Baldomero Espinoza MD Chloride [Moles/Vol] 106 mmol/L Normal 98-107 [facility] Comment on above: Performed By: #### L IP, CP, CDP #### [address] [place] [address] [employer] Repairer: Baldomero Espinoza MD CO2 [Moles/Vol] 18 mmol/L Low 20-31 [facility] Comment on above: Performed By: #### L IP, CP, CDP #### [facility] [address] [place] [address] [employer] Repairer: Baldomero Espinoza MD Creatinine [Mass/Vol] 0.7 mg/dL Normal 0.5-0.9 [facility] Comment on above: Performed By: #### L IP, CP, CDP #### [facility] [address] [place] [address] [employer] Repairer: Baldomero Espinoza MD GFR/1.73 sq M.predicted among non-blacks MDRD (S/P/Bld) [Vol rate/Area] mL/min/{1.73_m2} Normal >60 [facility] Comment on above: Result Comment: These [...] By: #### L IP CP, CDP #### [facility] [address] [place] [address] [place] [address] [employer] Repairer: Baldomero Espinoza MD Glucose [Mass/Vol] 87 mg/dL Normal 70-99 [facility] Comment on above: Performed By: #### L IP CP, CDP #### [facility] [address] [place] [address] [employer] Repairer: Baldomero Espinoza MD Potassium [Moles/Vol] 3.8 mmol/L Normal 3.7-5.3 [facility] Comment on above: Performed By: #### L IP CP, CDP #### [facility] [address] [place] [address] [employer] Repairer: Baldomero Espinoza MD Protein [Mass/Vol] 7.2 g/dL Normal 6.4-8.3 [facility] Comment on above: Performed By: #### L JUDITH BROWN, CDP #### [facility] [address] [place] [address] [employer] Repairer: Baldomero Espinoza MD Sodium [Moles/Vol] 136 mmol/L Normal 135-144 [facility] Comment on above: Performed By: #### L KEVIN CP, CDP #### [facility] [address] [place] [address] [employer] Repairer: Baldomero Espinoza MD Urea nitrogen [Mass/Vol] 7 mg/dL Normal 6-20 [facility] Comment on above: Performed By: #### L JUDITH BROWN, CDP #### [facility] [address] [place] [address] [employer] Repairer: Baldomero Espinoza MD Lipaseon 10-31-2022 Lipase [Catalytic activity/Vol] 43 U/L Normal 13-60 [facility] Comment on above: Performed By: #### L JUDITH BROWN, CDP #### [facility] [address] [place] [address] [employer] Repairer: Baldomero Espinoza MD Lipase [Catalytic activity/Vol] 43 U/L 13 - 60 U/L [facility] Microscopic Urinalysison Bacteria LM Ql (Urine sed) 1+ Abnormal None [facility] Epithelial cells LM.HPF (Urine sed) [#/Area] 2 TO 5 [facility] Interpretation and review of laboratory results Abnormal [facility] RBC LM.HPF (Urine sed) [#/Area] None [facility] WBC LM.HPF (Urine sed) [#/Area] None [facility] No Panel Informationon 10-31 [facility] UA w/Reflex Cultureon 2022 Bilirubin, SemiQt,Ur Negative Normal NEG [facility] Comment on above: Performed By: #### U MICAO, UAX ####[facility] [place] [address] Lab Director: Baldomero Espinoza MD Blood, Urine Negative Normal NEG [facility] Comment on above: Performed By: #### U MICAO, UAX ####[facility] [place] [address] Lab Director: Baldomero Espinoza MD Clarity (U) Clear Normal CLEAR [facility] Comment on above: Performed By: #### U MICAO, UAX ####[facility] [place] [address] Lab Director: Baldomero Espinoza MD Color (U) Yellow Normal YEL [facility] Comment on above: Performed By: #### U MICAO, UAX ####[address] [place] [address] Lab Director: Baldomero Espinoza MD Glucose Ql (U) Negative Normal NEG [facility] Comment on above: Performed By: #### U MICAO, UAX ####[address] [place] [address] Lab Director: Baldomero Espinoza MD Ketones Ql (U) Negative Normal NEG [facility] Comment on above: Performed By: #### U MICAO, UAX ####[address] [place] [address] Lab Director: Baldomero Espinoza MD Leukocyte esterase Test strip Ql (U) Negative Normal NEG [facility] Comment on above: Performed By: #### U MICAO, UAX ####[address] [place] [address] Lab Director: Baldomero Espinoza MD Nitrite,Ur Negative Normal NEG [facility] Comment on above: Performed By: #### U MICAO, UAX ####[address] [place] [address] Lab Director: Baldomero Espinoza MD PH,Ur 7.0 Normal 5.0-9.0 [facility] Comment on above: Performed By: #### U MICAO, UAX ####[address] , [place] [address] Lab Director: Baldomero Espinoza MD Protein Ql (U) Negative Normal NEG [facility] Comment on above: Performed By: #### U MICAO, UAX ####[address] , [place] [address] lab Director: Baldomero Espinoza MD Spec. [place],Ur 1.015 Normal 1.010-1.020 [facility] Comment on above: Performed By: #### U MICAO, UAX ####[address] , [place] 2[address] [facility] Director: Baldomero Espinoza MD Urobilinogen,Ur Normal Normal 0.0-1.0 [facility] Comment on above: Performed By: #### U MICAO, UAX ####[address] , [place] [address] Lab Director: Baldomero Espinoza MD Urinalysis with Reflex to Cu ltureon 10-31-2022 Bilirubin Ql (U) Negative NEGATIVE [facility] Clarity (U) Clear Clear [facility] Color (U) Yellow Yellow [facility] Glucose Test strip (U) [Mass/Vol] Negative NEGATIVE mg/dL [facility] Hemoglobin Auto test strip Ql (U) Negative NEGATIVE [facility] Ketones (U) [Mass/Vol] Negative NEGATIVE mg/dL [facility] Leukocyte esterase Test strip Ql (U) Negative NEGATIVE [facility] Nitrite Ql (U) Negative NEGATIVE [facility] pH (U) 7.0 [pH] 5.0 - 9.0 [facility] Protein (U) [Mass/Vol] Negative NEGATIVE mg/dL [facility] Specific gravity (U) [Rel density] 1.015 1.010 - 1.020 [facility] Urobilinogen Qn (U) Normal 0.0 - 1.0 EU/dL [facility] Urinalysis,Microon 3 Bacteria 1+ Abnormal NONE [facility] Comment on above: Performed By: #### U MICAO, UAX ####[facility] [place] [address] [facility] Director: Baldomero Espinoza MD Epithelial cells LM Ql (Urine sed) 2 TO 5 Normal 0-25 [facility] Comment on above: Performed By: #### U MICAO, UAX ####[address] [place] [address] lab Director: Baldomero Espinoza MD Urine RBC's None Normal 0-2 [facility] Comment on above: Performed By: #### U MICAO, UAX ####[address] [place] [address] lab Director: Baldomero Espinoza MD Urine WBC's None Normal 0-5 [facility] Comment on above: Performed By: #### U MICAO, UAX ####[address] [place] [address] lab Director: Baldomero Espinoza MD XR [...] E Regalado MD 10/31/22 Final result Normal [facility] 1. No acute vertebral body height loss or malalignment within the lumbar spine. 2. Mild anterior wedging of lower thoracic vertebral bodies, similar to the prior CT of 07/27/2021. 3. Prior cholecystectomy. Moderate stool burden. [facility] EXAMINATION: 5 XRAY VIEWS OF [...] sacral arcuate lines appear intact. Pelvic phleboliths. [facility] Luis E Regalado MD - [...] 07/27/2021. 3. Prior cholecystectomy. Moderate stool burden. [facility] Radiology Study observation (narrative) [facility] XR LUMBAR SPINE (MIN 4 VIEWS )Ordered By: Luis E Regalado on 10-31-2022 [facility] Work Phone: Transfer Inon 10-30-2022 Transfer In [id number] 6#1.00CD:127 [facility] Discharge Instructionson Discharge Instructions [id number] 183#1.00CD:127 [facility] Comment on above: Other Comment: wrong folder [facility] Auth for Release of Medical Recordson 10-28-2022 Auth for Release of Medical Records [id number] 7#1.00CD:127 [facility] CBC panel Auto (Bld)on 10-28 Erythrocyte distribution width (RBC) [Ratio] 13.2 % Normal 11.5-15.0 [facility] Comment on above: Order Comment: Speci men Type: BLOOD SPECIMENOrdering Facility: [facility] Address: [address] [place] [address] Performed By: #### 5 8410-2 ####[facility] LABORATORYCLIA [id number] [place] [address] [place] Hematocrit (Bld) [Volume fraction] 33.4 % Low 36.0-46.0 [facility] Comment on above: Order Comment: Speci men Type: BLOOD SPECIMENOrdering Facility: [facility] Address: [address] [place] [address] Performed By: #### 5 8410-2 ####[facility] LABORATORYCLIA [id number] [place] [address] [place] Hemoglobin (Bld) [Mass/Vol] 10.9 g/dL Low 11.5-15.5 [facility] Comment on above: Order Comment: Speci men Type: BLOOD SPECIMENOrdering Facility: [facility] Address: [address] [address] Performed By: #### 5 8410-2 ####[facility] LABORATORYIA [id number] [address] [place] MCH (RBC) [Entitic mass] 30.4 pg Normal 26.0-34.0 [facility] Comment on above: Order Comment: Speci men Type: BLOOD SPECIMENOrdering Facility: [facility] Address: [address] [address] Performed By: #### 5 8410-2 ####[facility] [id number] [address] [place] MCHC (RBC) [Mass/Vol] 32.6 g/dL Normal 30.5-36.0 [facility] Comment on above: Order Comment: Speci men Type: BLOOD SPECIMENOrdering Facility: [facility] Address: [address] [address] Performed By: #### 5 8410-2 ####[facility] [id number] [address] [place] MCV (RBC) [Entitic vol] 93.3 fL Normal 80.0-100.0 [facility] Comment on above: Order Comment: Speci men Type: BLOOD SPECIMENOrdering Facility: [facility] Address: [address] [address] Performed By: #### 5 8410-2 ####[facility] LABORATORYIA [id number] [address] [place] Nucleated RBC (Bld) [#/Vol] 10*3/uL Normal <0.01 [facility] Comment on above: Order Comment: Speci men Type: BLOOD SPECIMENOrdering Facility: [facility] Address: [address] [address] Performed By: #### 5 8410-2 ####[facility] LABORATORYIA [id number] [facility] [place] [address] [place] Platelet mean volume (Bld) [Entitic vol] 11.7 fL Normal 9.0-12.7 [facility] Comment on above: Order Comment: Speci men Type: BLOOD SPECIMENOrdering Facility: [facility] Address: [address] [place], [place] [address] Performed By: #### 5 8410-2 ####[facility] [id number] [place] [address] [place] Platelets (Bld) [#/Vol] 174 10*3/uL Normal 150-400 [facility] Comment on above: Order Comment: Speci men Type: BLOOD SPECIMENOrdering Facility: [facility] Address: [address] [place] [address] Performed By: #### 5 8410-2 ####[facility] [id number] [place] [address] [place] RBC (Bld) [#/Vol] 3.58 10*6/uL Low 3.90-5.20 [facility] Comment on above: Order Comment: Speci men Type: BLOOD SPECIMENOrdering Facility: [facility] Address: [address] [place], [place] [address] Performed By: #### 5 8410-2 ####[facility]ENTERIA [id number] [facility].[place] [id number] [place] WBC (Bld) [#/Vol] 4.62 10*3/uL Normal 3.70-11.00 [facility] Comment on above: Order Comment: Speci men Type: BLOOD SPECIMENOrdering Facility: [facility] Address: [address] [place] [address] Performed By: #### 5 8410-2 ####[facility] LABORATORYIA [id number] [facility].[place] [id number] [place] CNDSon 10-28-2022 CNDS Normal [facility] Comprehensive metabolic 2000 panelon 10-28-2022 Albumin [Mass/Vol] 3.2 g/dL Low 3.9-4.9 [facility] Comment on above: Order Comment: Speci men Type: BLOOD SPECIMENOrdering Facility: [facility] Address: [address] [place] [address] Performed By: #### 2 4323-8, 81215-9, 2776- ####[facility] LABORATORYCLIA [id number] [place] [address] [place] ALP [Catalytic activity/Vol] 54 U/L Normal 34-123 [facility] Comment on above: Order Comment: Speci men Type: BLOOD SPECIMENOrdering Facility: [facility] Address: [address] [place] [address] Performed By: #### 2 4323-8, , 2776-02 ####[facility] LABORATORYCLIA [id number] [place] [address] [place] ALT [Catalytic activity/Vol] 11 U/L Normal 7-38 [facility] Comment on above: Order Comment: Speci men Type: BLOOD SPECIMENOrdering Facility: [facility] Address: [address] [place] [address] Performed By: #### 2 4323-8, , 2776-02 ####[facility] LABORATORYCLIA [id number] [place] [address] [place] Anion gap [Moles/Vol] 9 mmol/L Normal 9-18 [facility] Comment on above: Order Comment: Speci men Type: BLOOD SPECIMENOrdering Facility: [facility] Address: [address] [place] [address] Performed By: #### 2 4323-8, , 2776-02 ####[facility] LABORATORYCLIA [id number] [place] [address] [place] AST [Catalytic activity/Vol] 23 U/L Normal 13-35 [facility] Comment on above: Order Comment: Speci men Type: BLOOD SPECIMENOrdering Facility: [facility] Address: [address] [address] Performed By: #### 2 4323-8, , 2776-02 ####[facility]ENTERIA [id number] [place] [address] [place] Bilirubin [Mass/Vol] 0.3 mg/dL Normal 0.2-1.3 [facility] Comment on above: Order Comment: Speci men Type: BLOOD SPECIMENOrdering Facility: [facility] Address: [address] [address] Performed By: #### 2 4323-8, , 2776-02 ####[facility] CENTERIA [id number] [place] [address] [place] Calcium [Mass/Vol] 8.3 mg/dL Low 8.5-10.2 [facility] Comment on above: Order Comment: Speci men Type: BLOOD SPECIMENOrdering Facility: [facility] Address: [address] [address] Performed By: #### 2 4323-8, , 2776-02 ####[facility]ENTERIA [id number] [place] [address] [place] Chloride [Moles/Vol] 108 mmol/L High 97-105 [facility] Comment on above: Order Comment: Speci men Type: BLOOD SPECIMENOrdering Facility: [facility] Address: [address] Performed By: #### 2 4323-8, , 2776-02 ####[facility] LABORATORYIA [id number] [place] [address] [place] CO2 [Moles/Vol] 21 mmol/L Low 22-30 [facility] Comment on above: Order Comment: Speci men Type: BLOOD SPECIMENOrdering Facility: [facility] Address: [address] [address] Performed By: #### 2 4323-8, 41960-7, 2776-02 ####[facility] LABORATORYCLIA [id number] [place] [address] [place] Creatinine [Mass/Vol] 0.76 mg/dL Normal 0.58-0.96 [facility] Comment on above: Order Comment: [facility] Type: BLOOD SPECIMENOrdering Facility: [facility] Address: [address] [address] Performed By: #### 2 4323-8, , 2776-02 ####[facility] LABORATORYCLIA [id number] [place] [address] [place] Creatinine and Glomerular filtration rate.predicted panel (S/P/Bld) 106 mL/min/1.73m??? Normal >=60 [facility] Comment on above: Order Comment: [facility] Type: BLOOD SPECIMENOrdering Facility: [facility] Address: [address] [place] [address] Result Comment: Jessica mated Glomerular Filtration Rate [...] Performed By: #### 2 4323-8, , 2776-02 ####[facility] LABORATORYCLIA [id number] [place] [address] [place] Glucose [Mass/Vol] 84 mg/dL Normal 74-99 [facility] Comment on above: Order Comment: [facility] Type: BLOOD SPECIMENOrdering Facility: [facility] Address: [address] [address] Result Comment: The [place] [employer] (ADA) provides guidance for cutoff [...] Standards of Medical Care in Diabetes 2016, [place] [employer]. Diabetes Care. 2016.39(Suppl 1). Performed By: #### 2 4323-8, , 2776-02 ####[facility]ENTERIA [id number] [place] [address] [place] Potassium [Moles/Vol] 4.1 mmol/L Normal 3.7-5.1 [facility] Comment on above: Order Comment: Lyssai elida Type: BLOOD SPECIMENOrdering Facility: [facility] Address: [address] [place] [address] Performed By: #### 2 4328, , 2776-02 ####[facility]ENTERIA [id number] [place] [address] [place] Protein [Mass/Vol] 5.2 g/dL Low 6.3-8.0 [facility] Comment on above: Order Comment: Geraldo marrero Type: BLOOD SPECIMENOrdering Facility: [facility] Address: [address] [place] [address] Performed By: #### 2 4323-8, , 2776-02 ####[facility] CENTERIA [id number] [place] [address] [place] Sodium [Moles/Vol] 138 mmol/L Normal 136-144 [facility] Comment on above: Order Comment: Lyssai men Type: BLOOD SPECIMENOrdering Facility: [facility] Address: [address] [place] [address] Performed By: #### 2 4323-8, , 2776-02 ####[facility] LABORATORYIA [id number] [place] [address] [place] Urea nitrogen [Mass/Vol] 7 mg/dL Normal 7-21 [facility] Comment on above: Order Comment: Speci men Type: BLOOD SPECIMENOrdering Facility: [facility] Address: [place] [address] Performed By: #### 2 4323-8, , 2776-02 ####[facility] LABORATORYCLIA [id number] [place] [address] [facility] [place] Formson 10-28-2022 Forms [id number] [id number]:127 Normal [facility] Magnesium [facility] 10-28 Magnesium [Mass/Vol] 1.9 mg/dL Normal 1.7-2.3 [facility] Comment on above: Order Comment: Speci men Type: BLOOD SPECIMENOrdering Facility: [facility] Address: [place] [address] Performed By: #### 2 4323-8, , 2776-02 ####[facility]ENTERIA [id number] [place] [address] [place] [facility] Phosphate [Mass/Vol] 3.2 mg/dL Normal 2.7-4.8 [facility] Comment on above: Order Comment: Speci men Type: BLOOD SPECIMENOrdering Facility: [facility] Address: [place] [address] Performed By: #### 2 4323-8, , 2776-02 ####[facility] LABORATORYIA [id number] [place] [address] [place] ANES POSTPROC EVALon 023 ANES POSTPROC EVAL Normal [facility] ANES PRE-OPon 10-27-2022 ANES PRE-OP Normal [facility] CBC panel Auto (Bld)on 10-27 Erythrocyte distribution width (RBC) [Ratio] 13.3 % Normal 11.5-15.0 [facility] Comment on above: Order Comment: Speci men Type: BLOOD SPECIMENOrdering Facility: [facility] Address: [address] [address] Performed By: #### 5 8410-2 ####[facility] LABORATORYIA [id number] [address] [place] Hematocrit (Bld) [Volume fraction] 33.6 % Low 36.0-46.0 [facility] Comment on above: Order Comment: Speci men Type: BLOOD SPECIMENOrdering Facility: [facility] Address: [address] [address] Performed By: #### 5 8410-2 ####[facility]IA [id number] [address] [place] Hemoglobin (Bld) [Mass/Vol] 10.9 g/dL Low 11.5-15.5 [facility] Comment on above: Order Comment: Speci men Type: BLOOD SPECIMENOrdering Facility: [facility] Address: [address] [address] Performed By: #### 5 8410-2 ####[facility] LABORATORYIA [id number] [place] [address] [place] MCH (RBC) [Entitic mass] 30.5 pg Normal 26.0-34.0 [facility] Comment on above: Order Comment: Speci men Type: BLOOD SPECIMENOrdering Facility: [facility] Address: [address] [address] Performed By: #### 5 8410-2 ####[facility] LABORATORYIA [id number] [address] [place] MCHC (RBC) [Mass/Vol] 32.4 g/dL Normal 30.5-36.0 [facility] Comment on above: Order Comment: Speci men Type: BLOOD SPECIMENOrdering Facility: [facility] Address: [address] [address] Performed By: #### 5 8410-2 ####[facility] LABORATORYIA [id number] [place] [address] [place] MCV (RBC) [Entitic vol] 94.1 fL Normal 80.0-100.0 [facility] Comment on above: Order Comment: Speci men Type: BLOOD SPECIMENOrdering Facility: [facility] Address: [address] [address] Performed By: #### 5 8410-2 ####[facility]ENTERIA [id number] [place] [address] [place] Nucleated RBC (Bld) [#/Vol] 10*3/uL Normal <0.01 [facility] Comment on above: Order Comment: Speci men Type: BLOOD SPECIMENOrdering Facility: [facility] Address: [address] [place] [address] Performed By: #### 5 8410-2 ####[facility] [id number] [place] [address] [place] Platelet mean volume (Bld) [Entitic vol] 11.7 fL Normal 9.0-12.7 [facility] Comment on above: Order Comment: Speci men Type: BLOOD SPECIMENOrdering Facility: [facility] Address: [address] [place] [address] Performed By: #### 5 8410-2 ####[facility] [id number] [place] [address] [place] Platelets (Bld) [#/Vol] 160 10*3/uL Normal 150-400 [facility] Comment on above: Order Comment: Speci men Type: BLOOD SPECIMENOrdering Facility: [facility] Address: [address] [address] Performed By: #### 5 8410-2 ####[facility] [id number] [place] [address] [place] RBC (Bld) [#/Vol] 3.57 10*6/uL Low 3.90-5.20 [facility] Comment on above: Order Comment: Speci men Type: BLOOD SPECIMENOrdering Facility: [facility] Address: [address] Performed By: #### 5 8410-2 ####[facility]IA [id number] [place] [address] [place] WBC (Bld) [#/Vol] 3.53 10*3/uL Low 3.70-11.00 [facility] Comment on above: Order Comment: Speci men Type: BLOOD SPECIMENOrdering Facility: [facility] Address: [address] Performed By: #### 5 8410-2 ####[facility]IA [id number] [place] [address] [place] CONSULT PROGon 10-27-2022 CONSULT PROG Normal [facility] CONSULT PROG Normal [facility] Comprehensive metabolic 2000 panelon 10-27-2022 Albumin [Mass/Vol] 3.3 g/dL Low 3.9-4.9 [facility] Comment on above: Order Comment: Speci men Type: BLOOD SPECIMENOrdering Facility: [facility] Address: [address] Performed By: #### 2 777-1, , ####[facility]IA [id number] [place] [address] [place] ALP [Catalytic activity/Vol] 52 U/L Normal 34-123 [facility] Comment on above: Order Comment: Speci men Type: BLOOD SPECIMENOrdering Facility: [facility] Address: [address] Performed By: #### 2 777-1, 82252-2, ####[facility]IA [id number] [place] [address] [place] ALT [Catalytic activity/Vol] 14 U/L Normal 7-38 [facility] Comment on above: Order Comment: Speci men Type: BLOOD SPECIMENOrdering Facility: [facility] Address: [address] [place] [address] Performed By: #### 2 777-1, 67031-2, ####[facility] LABORATORYCLIA [id number] [place] [address] [place] Anion gap [Moles/Vol] 8 mmol/L Low 9-18 [facility] Comment on above: Order Comment: Speci men Type: BLOOD SPECIMENOrdering Facility: [facility] Address: [address] [address] Performed By: #### 2 777-1, , ####[facility] LABORATORYCLIA [id number] [place] [address] [place] AST [Catalytic activity/Vol] 28 U/L Normal 13-35 [facility] Comment on above: Order Comment: Speci men Type: BLOOD SPECIMENOrdering Facility: [facility] Address: [address] [address] Performed By: #### 2 777-1, , ####[facility] LABORATORYCLIA [id number] [place] [address] [place] Bilirubin [Mass/Vol] 0.2 mg/dL Normal 0.2-1.3 [facility] Comment on above: Order Comment: Speci men Type: BLOOD SPECIMENOrdering Facility: [facility] Address: [address] Performed By: #### 2 777-1, , ####[facility] LABORATORYCLIA [id number] [place] [address] [place] Calcium [Mass/Vol] 8.1 mg/dL Low 8.5-10.2 [facility] Comment on above: Order Comment: Speci men Type: BLOOD SPECIMENOrdering Facility: [facility] Address: [address] [address] Performed By: #### 2 777-1, , ####[facility] LABORATORYCLIA [id number] [place] [address] [place] Chloride [Moles/Vol] 110 mmol/L High 97-105 [facility] Comment on above: Order Comment: Speci men Type: BLOOD SPECIMENOrdering Facility: [facility] Address: [address] [place] [address] Performed By: #### 2 777-1, 29510-9, 50510-7 ####[facility]IA [id number] [place] [address] [place] CO2 [Moles/Vol] 22 mmol/L Normal 22-30 [facility] Comment on above: Order Comment: Speci men Type: BLOOD SPECIMENOrdering Facility: [facility] Address: [address] [place] [address] Performed By: #### 2 777-1, 64859-1, ####[facility]IA [id number] [address] [place] Creatinine [Mass/Vol] 0.70 mg/dL Normal 0.58-0.96 [facility] Comment on above: Order Comment: Speci men Type: BLOOD SPECIMENOrdering Facility: [facility] Address: [address] [place] [address] Performed By: #### 2 777-1, 28900-7, ####[facility]IA [id number] [place] [address] [place] Creatinine and Glomerular filtration rate.predicted panel (S/P/Bld) 117 mL/min/1.73m??? Normal >=60 [facility] Comment on above: Order Comment: Speci men Type: BLOOD SPECIMENOrdering Facility: [facility] Address: [address] [place] [address] Result Comment: Jessica mated Glomerular Filtration Rate [...] GFR. Performed By: #### 2 777-1, , ####[facility]ENTERCLIA [id number] [place] [address] [place] Glucose [Mass/Vol] 89 mg/dL Normal 74-99 [facility] Comment on above: Order Comment: Geraldo marrero Type: BLOOD SPECIMENOrdering Facility: [facility] Address: [address] [place] [address] Result Comment: The [place] [employer] (ADA) provides guidance for cutoff [...] Standards of Medical Care in Diabetes 2016, [place] [employer]. Diabetes Care. 2016.39(Suppl 1). Performed By: #### 2 777-1, , ####[facility] LABORATORYCLIA [id number] [place] [address] [place] Potassium [Moles/Vol] 4.1 mmol/L Normal 3.7-5.1 [facility] Comment on above: Order Comment: Geraldo marrero Type: BLOOD SPECIMENOrdering Facility: [facility] Address: [address] [place] [address] Performed By: #### 2 777-1, , ####[facility] LABORATORYCLIA [id number] [place] [address] [place] Protein [Mass/Vol] 5.0 g/dL Low 6.3-8.0 [facility] Comment on above: Order Comment: Speci men Type: BLOOD SPECIMENOrdering Facility: [facility] Address: [address] [place], [place] [id number] Performed By: #### 2 777-1, , ####[facility] LABORATORYCLIA [id number] [place] [address] [place] Sodium [Moles/Vol] 140 mmol/L Normal 136-144 [facility] Comment on above: Order Comment: Speci men Type: BLOOD SPECIMENOrdering Facility: [facility] Address: [address] [place], [place] [phone] Performed By: #### 2 777-1, , ####[facility]IA [id number] [place] [address] [place] Urea nitrogen [Mass/Vol] 5 mg/dL Low 7-21 [facility] Comment on above: Order Comment: Speci men Type: BLOOD SPECIMENOrdering Facility: [facility] Address: [address] [place] [address] Performed By: #### 2 777-1, , ####[facility]IA [id number] [place] [address] [place] Magnesium SerPl-ncon 10-27 Magnesium [Mass/Vol] 1.9 mg/dL Normal 1.7-2.3 [facility] Comment on above: Order Comment: Speci men Type: BLOOD SPECIMENOrdering Facility: [facility] Address: [address] [place] [address] Performed By: #### 2 777-1, , ####[facility]ORATORYIA [id number] [place] [address] [place] NUTRITIONon 10-27-2022 NUTRITION Normal [facility] Phosphate SerPl-mCncon 10-27 Phosphate [Mass/Vol] 3.1 mg/dL Normal 2.7-4.8 [facility] Comment on above: Order Comment: Speci men Type: BLOOD SPECIMENOrdering Facility: [facility] Address: [address] [address] Performed By: #### 2 777-1, 93110-6, 27823-1 ####[facility] LABORATORYCLIA [id number] [place] [address] [place] Upper GI endoscopyon 023 Upper GI endoscopy Normal [facility] CASE MGT INIT ASSESon 2022 CASE MGT INIT [facility] CBC panel Auto (Bld)on 10-26 Erythrocyte distribution width (RBC) [Ratio] 13.2 % Normal 11.5-15.0 [facility] Comment on above: Order Comment: Speci men Type: BLOOD SPECIMENOrdering Facility: [facility] Address: [address] [place] [address] Performed By: #### 5 8410-2 ####[facility] LABORATORYCLIA [id number] [place] [address] [place] Hematocrit (Bld) [Volume fraction] 34.9 % Low 36.0-46.0 [facility] Comment on above: Order Comment: Speci men Type: BLOOD SPECIMENOrdering Facility: [facility] Address: [address] [place] [address] Performed By: #### 5 8410-2 ####[facility] LABORATORYCLIA [id number] [place] [address] [place] Hemoglobin (Bld) [Mass/Vol] 11.1 g/dL Low 11.5-15.5 [facility] Comment on above: Order Comment: Speci men Type: BLOOD SPECIMENOrdering Facility: [facility] Address: [address] [place] [address] Performed By: #### 5 8410-2 ####[facility] LABORATORYCLIA [id number] [place] [address] [place] MCH (RBC) [Entitic mass] 30.9 pg Normal 26.0-34.0 [facility] Comment on above: Order Comment: Speci men Type: BLOOD SPECIMENOrdering Facility: [facility] Address: [address] [address] Performed By: #### 5 8410-2 ####[facility]IA [id number] [place] [address] [place] MCHC (RBC) [Mass/Vol] 31.8 g/dL Normal 30.5-36.0 [facility] Comment on above: Order Comment: Speci men Type: BLOOD SPECIMENOrdering Facility: [facility] Address: [address] [address] Performed By: #### 5 8410-2 ####[facility] [id number] [place] [address] [place] MCV (RBC) [Entitic vol] 97.2 fL Normal 80.0-100.0 [facility] Comment on above: Order Comment: Speci men Type: BLOOD SPECIMENOrdering Facility: [facility] Address: [address] [address] Performed By: #### 5 8410-2 ####[facility] [id number] [place] [address] [place] Nucleated RBC (Bld) [#/Vol] 10*3/uL Normal <0.01 [facility] Comment on above: Order Comment: Speci men Type: BLOOD SPECIMENOrdering Facility: [facility] Address: [address] [address] Performed By: #### 5 8410-2 ####[facility]IA [id number] [place] [address] [place] Platelet mean volume (Bld) [Entitic vol] 11.9 fL Normal 9.0-12.7 [facility] Comment on above: Order Comment: Speci men Type: BLOOD SPECIMENOrdering Facility: [facility] Address: [address] [address] Performed By: #### 5 8410-2 ####[facility]IA [id number] [facility] [address] [facility] [place] Platelets (Bld) [#/Vol] 181 10*3/uL Normal 150-400 [facility] Comment on above: Order Comment: Speci men Type: BLOOD SPECIMENOrdering Facility: [facility] Address: [address] [place] [address] Performed By: #### 5 8410-2 ####[facility] LABORATORYCLIA [id number] [facility] [address] [facility] RBC (Bld) [#/Vol] 3.59 10*6/uL Low 3.90-5.20 [facility] Comment on above: Order Comment: Speci men Type: BLOOD SPECIMENOrdering Facility: [facility] Address: [address] [place] [address] Performed By: #### 5 8410-2 ####[facility]IA [id number] [facility].[place] [id number] [facility] WBC (Bld) [#/Vol] 3.44 10*3/uL Low 3.70-11.00 [facility] Comment on above: Order Comment: Speci men Type: BLOOD SPECIMENOrdering Facility: [facility] Address: [address] [place] [address] Performed By: #### 5 8410-2 ####[facility]IA [id number] [facility].[place] [id number] [facility] [place] CONSULTon 10-26-2022 CONSULT Normal [facility] Comprehensive metabolic 2000 panelon 10-26-2022 Albumin [Mass/Vol] 3.3 g/dL Low 3.9-4.9 [facility] Comment on above: Order Comment: Speci men Type: BLOOD SPECIMENOrdering Facility: [facility] Address: [address] [place] [address] Performed By: #### 1 9123-9, 3016-3, 62505-9, 2777-1 ####[facility] LABORATORYCLIA [id number] [facility] [address] [place] ALP [Catalytic activity/Vol] 52 U/L Normal 34-123 [facility] Comment on above: Order Comment: Speci men Type: BLOOD SPECIMENOrdering Facility: [facility] Address: [address] [address] Performed By: #### 1 9123-9, 3016-3, 43213-3, 2777-1 ####[facility] LABORATORYCLIA [id number] [place] [address] [place] ALT [Catalytic activity/Vol] 15 U/L Normal 7-38 [facility] Comment on above: Order Comment: Speci men Type: BLOOD SPECIMENOrdering Facility: [facility] Address: [address] [address] Performed By: #### 1 9123-9, 3016-3, 34798-1, 2777-1 ####[facility] LABORATORYCLIA [id number] [place] [address] [place] Anion gap [Moles/Vol] 9 mmol/L Normal 9-18 [facility] Comment on above: Order Comment: Speci men Type: BLOOD SPECIMENOrdering Facility: [facility] Address: [address] [address] Performed By: #### 1 9123-9, 3016-3, 33351-3, 7-1 ####[facility] LABORATORYCLIA [id number] [place] [address] [place] AST [Catalytic activity/Vol] 30 U/L Normal 13-35 [facility] Comment on above: Order Comment: Speci men Type: BLOOD SPECIMENOrdering Facility: [facility] Address: [address] [address] Performed By: #### 1 9123-9, 3016-3, 47423-7, 2777-1 ####[facility]ORATORYCLIA [id number] [place] [address] [place] Bilirubin [Mass/Vol] 0.4 mg/dL Normal 0.2-1.3 [facility] Comment on above: Order Comment: Speci men Type: BLOOD SPECIMENOrdering Facility: [facility] Address: [address] [address] Performed By: #### 1 9123-9, 3016-3, 77649-3, 277- ####[facility] LABORATORYCLIA [id number] [place] [address] [place] Calcium [Mass/Vol] 8.3 mg/dL Low 8.5-10.2 [facility] Comment on above: Order Comment: Speci men Type: BLOOD SPECIMENOrdering Facility: [facility] Address: [address] [address] Performed By: #### 1 9123-9, 3016-3, 17889-6, 277- ####[facility] LABORATORYCLIA [id number] [place] [address] [place] Chloride [Moles/Vol] 110 mmol/L High 97-105 [facility] Comment on above: Order Comment: Speci men Type: BLOOD SPECIMENOrdering Facility: [facility] Address: [address] [place] [address] Performed By: #### 1 9123-9, 3015-3, 00337-7, 2776- ####[facility]IA [id number] [place] [address] [place] CO2 [Moles/Vol] 20 mmol/L Low 22-30 [facility] Comment on above: Order Comment: Speci men Type: BLOOD SPECIMENOrdering Facility: [facility] Address: [address] [place] [address] Performed By: #### 1 9123-9, 3015-3, 12042-3, 277- ####[facility] LABORATORYIA [id number] [place] [address] [place] Creatinine [Mass/Vol] 0.73 mg/dL Normal 0.58-0.96 [facility] Comment on above: Order Comment: Speci men Type: BLOOD SPECIMENOrdering Facility: [facility] Address: [address] [place] [address] Performed By: #### 1 9123-9, 3016-3, 90764-8, 2777-1 ####[facility] LABORATORYCLIA [id number] [facility] [address] [place] Creatinine and Glomerular filtration rate.predicted panel (S/P/Bld) 112 mL/min/1.73m??? Normal >=60 [facility] Comment on above: Order Comment: Geraldo marrero Type: BLOOD SPECIMENOrdering Facility: [facility] Address: [address] [place] [address] Result Comment: Jessica mated Glomerular Filtration Rate [...] GFR. Performed By: #### 1 9123-9, 3016-3, 58198-5, 2777-1 ####[facility] LABORATORYCLIA [id number] [facility] [place] [address] [place] Glucose [Mass/Vol] 83 mg/dL Normal 74-99 [facility] Comment on above: Order Comment: Geraldo marrero Type: BLOOD SPECIMENOrdering Facility: [facility] Address: [address] [place] [phone] Result Comment: The [place] [employer] (ADA) provides guidance for cutoff [...] Standards of Medical Care in Diabetes 2016, [place] [employer]. Diabetes Care. 2016.39(Suppl 1). Performed By: #### 1 9123-9, 3016-3, 90089-2, 2777-1 ####[facility]ENTERIA [id number] [place] [address] [place] Potassium [Moles/Vol] 4.2 mmol/L Normal 3.7-5.1 [facility] Comment on above: Order Comment: Speci men Type: BLOOD SPECIMENOrdering Facility: [facility] Address: [address] [address] Performed By: #### 1 9123-9, 3016-3, 56120-6, 2777-1 ####[facility]ENTERIA [id number] [place] [address] [place] Protein [Mass/Vol] 5.0 g/dL Low 6.3-8.0 [facility] Comment on above: Order Comment: Speci men Type: BLOOD SPECIMENOrdering Facility: [facility] Address: [address] [address] Performed By: #### 1 9123-9, 3016-3, 98821-7, 277- ####[facility] [id number] [place] [address] [place] Sodium [Moles/Vol] 139 mmol/L Normal 136-144 [facility] Comment on above: Order Comment: Speci men Type: BLOOD SPECIMENOrdering Facility: [facility] Address: [address] [address] Performed By: #### 1 9123-9, 3016-3, 86932-5, 2777-1 ####[facility] [facility]IA [id number] [place] [address] [place] Urea nitrogen [Mass/Vol] 5 mg/dL Low 7-21 [facility] Comment on above: Order Comment: Speci men Type: BLOOD SPECIMENOrdering Facility: [facility] Address: [address] [address] Performed By: #### 1 9123-9, 3016-3, 86486-1, 2777-1 ####[facility] LABORATORYCLIA [id number] [place] [address] [place] ED Note-Physicianon 10-27-19 ED Note-Physician [facility] Comment on above: Result Comment: Elec tronically Signed By: Lonnie Rios PA-C\.br\Date and Time Signed: 10/20/22 13:50 EDT\.br\Electronically Co-Signed By: Earnest Jett DO\.br\Date and Time Co-Signed: 10/26/22 07:01 EDT Magnesium SerPl-mCncon 10-26 Magnesium [Mass/Vol] 1.9 mg/dL Normal 1.7-2.3 [facility] Comment on above: Order Comment: Speci men Type: BLOOD SPECIMENOrdering Facility: [facility] Address: [address] [place] [phone] Performed By: #### 1 9123-9, 3016-3, 32065-7, 2777-1 ####[facility]IA [id number] [place] [address] [place] Phosphate SerPl-mCncon 10-26 Phosphate [Mass/Vol] 4.3 mg/dL Normal 2.7-4.8 [facility] Comment on above: Order Comment: Speci men Type: BLOOD SPECIMENOrdering Facility: [facility] Address: [address] [place] [phone] Performed By: #### 1 9123-9, 3016-3, 42994-2, 2777-1 ####[facility]ENTERIA [id number] [place] [address] [place] TSH SerPl-aCncon 10-26-2022 TSH Qn 0.712 m[IU]/L Normal 0.270-4.200 [facility] Comment on above: Order Comment: Speci men Type: BLOOD SPECIMENOrdering Facility: [facility] Address: [address] [place] [phone] Result Comment: If t he patient is , TSH reference range varies by gestational period:First Trimester (weeks 9-12): 0.180-2.990 mIU/LSecond Trimester: 0.110-3.980 mIU/LThird Trimester: 0.480-4.710 mIU/Lisa Johnson et al. A Practical Approach for the Verifications and Determination of Site- and Trimester-Specific Reference Intervals for Thyroid Function tests in . Thyroid, 2019:29:3:412-420. Claus Graf, et al. 2017 Guidelines of the [place] Thyroid Association for the Diagnosis and Management of Thyroid Disease during and the . Thyroid, 2017:27:3:315-389. Performed By: #### 1 9123-9, 3016-3, 04608-5, 2777-1 ####[facility] LABORATORYCLIA [id number] [place] [address] [place] CBC W Auto Differential pane l (Bld)on 10-25-2022 Basophils (Bld) [#/Vol] 0.04 10*3/uL Normal <0.11 [facility] Comment on above: Order Comment: Speci men Type: BLOOD SPECIMENOrdering Facility: [facility] Address: [address] [address] Performed By: #### 5 7021-8 ####[facility]ENTERIA [id number] [place] [id number] [place] Basophils/100 WBC (Bld) 1.1 % Normal [facility] Comment on above: Order Comment: Speci men Type: BLOOD SPECIMENOrdering Facility: [facility] Address: [address] [address] Performed By: #### 5 7021-8 ####[facility] LABORATORYIA [id number] [address] [place] Differential cell count method Nom (Bld) Auto Normal [facility] Comment on above: Order Comment: Speci men Type: BLOOD SPECIMENOrdering Facility: [facility] Address: [address] [address] Performed By: #### 5 7021-8 ####[facility] LABORATORYCLIA [id number] [place] [address] [place] Eosinophils (Bld) [#/Vol] 0.07 10*3/uL Normal <0.46 [facility] Comment on above: Order Comment: Speci men Type: BLOOD SPECIMENOrdering Facility: [facility] Address: [address] [place] [address] Performed By: #### 5 7021-8 ####[facility] LABORATORYCLIA [id number] [place] [address] [place] Eosinophils/100 WBC (Bld) 1.9 % Normal [facility] Comment on above: Order Comment: Speci men Type: BLOOD SPECIMENOrdering Facility: [facility] Address: [address] [place] [address] Performed By: #### 5 7021-8 ####[facility] LABORATORYCLIA [id number] [address] [place] Erythrocyte distribution width (RBC) [Ratio] 13.0 % Normal 11.5-15.0 [facility] Comment on above: Order Comment: Speci men Type: BLOOD SPECIMENOrdering Facility: [facility] Address: [address] [place] [address] Performed By: #### 5 7021-8 ####[facility] LABORATORYIA [id number] [place] [address] [place] Hematocrit (Bld) [Volume fraction] 39.5 % Normal 36.0-46.0 [facility] Comment on above: Order Comment: Speci men Type: BLOOD SPECIMENOrdering Facility: [facility] Address: [address] [place] [address] Performed By: #### 5 7021-8 ####[facility] LABORATORYIA [id number] [place] [address] [place] Hemoglobin (Bld) [Mass/Vol] 13.1 g/dL Normal 11.5-15.5 [facility] Comment on above: Order Comment: Speci men Type: BLOOD SPECIMENOrdering Facility: [facility] Address: [address] [address] Performed By: #### 5 7021-8 ####[facility]IA [id number] [place] [address] [place] Immature granulocytes (Bld) [#/Vol] 10*3/uL Normal <0.10 [facility] Comment on above: Order Comment: Speci men Type: BLOOD SPECIMENOrdering Facility: [facility] Address: [address] [address] Performed By: #### 5 7021-8 ####[facility]IA [id number] [address] [place] Immature granulocytes/100 WBC (Bld) 0.3 % Normal [facility] Comment on above: Order Comment: Speci men Type: BLOOD SPECIMENOrdering Facility: [facility] Address: [address] [address] Performed By: #### 5 7021-8 ####[facility]ENTERIA [id number] [place] [address] [place] Lymphocytes (Bld) [#/Vol] 1.11 10*3/uL Normal 1.00-4.00 [facility] Comment on above: Order Comment: Speci men Type: BLOOD SPECIMENOrdering Facility: [facility] Address: [address] [address] Performed By: #### 5 7021-8 ####[facility] LABORATORYIA [id number] [place] [address] [place] Lymphocytes/100 WBC (Bld) 29.4 % Normal [facility] Comment on above: Order Comment: Speci men Type: BLOOD SPECIMENOrdering Facility: [facility] Address: [address] [place] [address] Performed By: #### 5 7021-8 ####[facility] LABORATORYIA [id number] [place] [address] [place] MCH (RBC) [Entitic mass] 30.5 pg Normal 26.0-34.0 [facility] Comment on above: Order Comment: Speci men Type: BLOOD SPECIMENOrdering Facility: [facility] Address: [address] [address] Performed By: #### 5 7021-8 ####[facility] LABORATORYIA [id number] [place] [address] [place] MCHC (RBC) [Mass/Vol] 33.2 g/dL Normal 30.5-36.0 [facility] Comment on above: Order Comment: Speci men Type: BLOOD SPECIMENOrdering Facility: [facility] Address: [address] [address] Performed By: #### 5 7021-8 ####[facility] [id number] [address] [place] MCV (RBC) [Entitic vol] 92.1 fL Normal 80.0-100.0 [facility] Comment on above: Order Comment: Speci men Type: BLOOD SPECIMENOrdering Facility: [facility] Address: [address] [address] Performed By: #### 5 7021-8 ####[facility] [id number] [address] [place] Monocytes (Bld) [#/Vol] 0.27 10*3/uL Normal <0.87 [facility] Comment on above: Order Comment: Speci men Type: BLOOD SPECIMENOrdering Facility: [facility] Address: [address] [address] Performed By: #### 5 7021-8 ####[facility] [id number] [address] Monocytes/100 WBC (Bld) 7.1 % Normal [facility] Comment on above: Order Comment: Speci men Type: BLOOD SPECIMENOrdering Facility: [facility] Address: [address] [address] Performed By: #### 5 7021-8 ####[facility] LABORATORYCLIA [id number] [facility] [place] [address] [place] Neutrophils (Bld) [#/Vol] 2.28 10*3/uL Normal 1.45-7.50 [facility] Comment on above: Order Comment: Speci men Type: BLOOD SPECIMENOrdering Facility: [facility] Address: [address] [place] [address] Performed By: #### 5 7021-8 ####[facility] LABORATORYCLIA [id number] [facility] [address] [place] Neutrophils/100 WBC (Bld) 60.2 % Normal [facility] Comment on above: Order Comment: Speci men Type: BLOOD SPECIMENOrdering Facility: [facility] Address: [address] [address] Performed By: #### 5 7021-8 ####[facility]IA [id number] [place] [address] [place] Nucleated RBC (Bld) [#/Vol] 10*3/uL Normal <0.01 [facility] Comment on above: Order Comment: Speci men Type: BLOOD SPECIMENOrdering Facility: [facility] Address: [address] [place] [address] Performed By: #### 5 7021-8 ####[facility] LABORATORYIA [id number] [facility] [place] [address] [place] Nucleated RBC/100 WBC (Bld) [Ratio] 0.0 /100 WBC Normal [facility] Comment on above: Order Comment: Speci men Type: BLOOD SPECIMENOrdering Facility: [facility] Address: [address] [place] [address] Performed By: #### 5 7021-8 ####[facility] LABORATORYIA [id number] [place] [address] [place] Platelet mean volume (Bld) [Entitic vol] 11.4 fL Normal 9.0-12.7 [facility] Comment on above: Order Comment: Speci men Type: BLOOD SPECIMENOrdering Facility: [facility] Address: [address] [place] [address] Performed By: #### 5 7021-8 ####[facility]IA [id number] [place] [address] [facility] Platelets (Bld) [#/Vol] 208 10*3/uL Normal 150-400 [facility] Comment on above: Order Comment: Speci men Type: BLOOD SPECIMENOrdering Facility: [facility] Address: [address] [place] [address] Performed By: #### 5 7021-8 ####[facility]IA [id number] [address] [place] [address] [place] RBC (Bld) [#/Vol] 4.29 10*6/uL Normal 3.90-5.20 [facility] Comment on above: Order Comment: Speci men Type: BLOOD SPECIMENOrdering Facility: [facility] Address: [address] [place] [address] Performed By: #### 5 7021-8 ####[facility] [id number] [place] [address] [place] WBC (Bld) [#/Vol] 3.78 10*3/uL Normal 3.70-11.00 [facility] Comment on above: Order Comment: Speci men Type: BLOOD SPECIMENOrdering Facility: [facility] Address: [address] [place] [address] Performed By: #### 5 7021-8 ####[facility]IA [id number] [place] [address] [place] CT ABD/PEL W IVCONon 023 CT ABD/PEL W IVCON Normal [facility] Comprehensive metabolic 2000 panelon 10-25-2022 Albumin [Mass/Vol] 4.2 g/dL Normal 3.9-4.9 [facility] Comment on above: Order Comment: Speci men Type: BLOOD SPECIMENOrdering Facility: [facility] Address: [address] Performed By: #### 1 9123-9, 20017-0, 3040-3 ####[facility] LABORATORYCLIA [id number] [place] [address] [place] ALP [Catalytic activity/Vol] 70 U/L Normal 34-123 [facility] Comment on above: Order Comment: Speci men Type: BLOOD SPECIMENOrdering Facility: [facility] Address: [address] [address] Performed By: #### 1 9123-9, 49210-1, 0-3 ####[facility] LABORATORYCLIA [id number] [place] [address] [place] ALT [Catalytic activity/Vol] 21 U/L Normal 7-38 [facility] Comment on above: Order Comment: Speci men Type: BLOOD SPECIMENOrdering Facility: [facility] Address: [address] [address] Performed By: #### 1 9123-9, 53966-9, 0-3 ####[facility]IA [id number] [place] [address] [place] Anion gap [Moles/Vol] 10 mmol/L Normal 9-18 [facility] Comment on above: Order Comment: Speci men Type: BLOOD SPECIMENOrdering Facility: [facility] Address: [address] [address] Performed By: #### 1 9123-9, 73396-2, 0-3 ####[facility] LABORATORYCLIA [id number] [place] [address] [place] AST [Catalytic activity/Vol] 38 U/L High 13-35 [facility] Comment on above: Order Comment: Speci men Type: BLOOD SPECIMENOrdering Facility: [facility] Address: [address] [address] Performed By: #### 1 9123-9, 92271-4, 3040-3 ####[facility] LABORATORYCLIA [id number] [place] [address] [place] Bilirubin [Mass/Vol] 0.3 mg/dL Normal 0.2-1.3 [facility] Comment on above: Order Comment: Speci men Type: BLOOD SPECIMENOrdering Facility: [facility] Address: [address] [place] [address] Performed By: #### 1 9123-9, 95990-9, 3040-3 ####[facility] LABORATORYCLIA [id number] [place] [address] [place] Calcium [Mass/Vol] 8.8 mg/dL Normal 8.5-10.2 [facility] Comment on above: Order Comment: Speci men Type: BLOOD SPECIMENOrdering Facility: [facility] Address: [address] [place] [address] Performed By: #### 1 9123-9, 14365-2, 0-3 ####[facility]IA [id number] [place] [address] [place] Chloride [Moles/Vol] 106 mmol/L High 97-105 [facility] Comment on above: Order Comment: Speci men Type: BLOOD SPECIMENOrdering Facility: [facility] Address: [address] [place] [address] Performed By: #### 1 9123-9, 91357-6, 0-3 ####[facility] LABORATORYIA [id number] [place] [address] [place] CO2 [Moles/Vol] 22 mmol/L Normal 22-30 [facility] ital Comment on above: Order Comment: Speci men Type: BLOOD SPECIMENOrdering Facility: [facility] Address: [address] [place] [address] Performed By: #### 1 9123-9, 60642-3, 3040-3 ####[facility] LABORATORYIA [id number] [place] [address] [place] Creatinine [Mass/Vol] 0.82 mg/dL Normal 0.58-0.96 [facility] Comment on above: Order Comment: Geraldo marrero Type: BLOOD SPECIMENOrdering Facility: [facility] Address: [address] [phone] Performed By: #### 1 9123-9, 46499-8, 3040-3 ####[facility] LABORATORYCLIA [id number] [place] [address] [place] Creatinine and Glomerular filtration rate.predicted panel (S/P/Bld) 97 mL/min/1.73m??? Normal >=60 [facility] Comment on above: Order Comment: Geraldo marrero Type: BLOOD SPECIMENOrdering Facility: [facility] Address: [address] [phone] Result Comment: Jessica mated Glomerular Filtration Rate [...] actual GFR. Performed By: #### 1 9123-9, 60131-4, 3040-3 ####[facility] LABORATORYCLIA [id number] [place] [address] [place] Glucose [Mass/Vol] 85 mg/dL Normal 74-99 [facility] Comment on above: Order Comment: Geraldo marrero Type: BLOOD SPECIMENOrdering Facility: [facility] Address: [address] [phone] Result Comment: The [place] Diabetes Association (ADA) provides guidance for cutoff [...] Standards of Medical Care in Diabetes 2016, [place] [employer]. Diabetes Care. 2016.39(Suppl 1). Performed By: #### 1 9123-9, 96957-7, 3040-3 ####[facility]IA [id number] [place] [address] [place] Potassium [Moles/Vol] 3.8 mmol/L Normal 3.7-5.1 [facility] Comment on above: Order Comment: Speci men Type: BLOOD SPECIMENOrdering Facility: [facility] Address: [address] [address] Performed By: #### 1 9123-9, 98766-5, 0-3 ####[facility]IA [id number] [place] [address] [place] Protein [Mass/Vol] 6.5 g/dL Normal 6.3-8.0 [facility] Comment on above: Order Comment: Speci men Type: BLOOD SPECIMENOrdering Facility: [facility] Address: [address] Performed By: #### 1 9123-9, 02241-8, 0-3 ####[facility]IA [id number] [place] [address] [place] Sodium [Moles/Vol] 138 mmol/L Normal 136-144 [facility] Comment on above: Order Comment: Speci men Type: BLOOD SPECIMENOrdering Facility: [facility] Address: [address] Performed By: #### 1 9123-9, 20168-4, 3040-3 ####[facility]IA [id number] [place] [address] [place] Urea nitrogen [Mass/Vol] 7 mg/dL Normal 7-21 [facility] Comment on above: Order Comment: Speci men Type: BLOOD SPECIMENOrdering Facility: [facility] Address: [address] [address] Performed By: #### 1 9123-9, 83665-4, 3040-3 ####[facility]IA [id number] [facility] [place] [address] [place] D dimer FEU PPP-mCncon 10-25 Fibrin D-dimer FEU (PPP) [Mass/Vol] <190 Normal <500 [facility] Comment on above: Order Comment: Speci men Type: BLOOD SPECIMENOrdering Facility: [facility] Address: [address] [place] [phone] Performed By: #### 4 8065-7 ####[facility]IA [id number] [place] [address] [place] ECG COMPLETEon 10-25-2022 ECG COMPLETE Normal [facility] ED NOTEon 10-25-2022 ED NOTE HNO ID: [id number] Author: Anam Myers RN Service: ? Author Type: Registered Nurse Type: ED Notes Filed: 10/25/2022 8:19 AM Note Text: Pt unable to urinate sat this time. Aware urine sample is needed. Normal [facility] ED NOTE Normal [facility] ED PROV NOTEon 10-25-2022 ED PROV NOTE Normal [facility] HISTORY PHYSICALon HISTORY PHYSICAL Normal [facility] pital [facility]ase [facility] 10-26-19 23 Lipase [Catalytic activity/Vol] 29 U/L Normal 16-61 [facility] Comment on above: Order Comment: Speci men Type: BLOOD SPECIMENOrdering Facility: [facility] Address: [place] [address] Performed By: #### 1 9123-9, 98270-5, 3040-3 ####[facility]ENTERIA [id number] [place] [id number] [facility] [place] Magnesium [facility]-ncon 10-25 Magnesium [Mass/Vol] 1.9 mg/dL Normal 1.7-2.3 [facility] Comment on above: Order Comment: Speci men Type: BLOOD SPECIMENOrdering Facility: [facility] Address: [address] Performed By: #### 1 9123-9, 47839-0, 3040-3 ####[facility]IA [id number] [place] [address] [place] NURSING PROGon 10-25-2022 NURSING PROG Normal [facility] Urinalysis complete panel (U )on 10-25-2022 Bilirubin Ql (U) Negative Normal Negative [facility] pital Comment on above: Order Comment: Speci men Type: URINE SPECIMENOrdering Facility: [facility] Address: [address] [address] Performed By: #### 2 4356-8 ####[facility] [id number] [place] [address] [facility] Clarity (Unsp spec) Clear Normal Clear [facility] Comment on above: Order Comment: Speci men Type: URINE SPECIMENOrdering Facility: [facility] Address: [address] [place] [address] Performed By: #### 2 4356-8 ####[facility] [id number] [place] [address] [place] Color (U) Colorless Normal yellow [facility] Comment on above: Order Comment: Speci men Type: URINE SPECIMENOrdering Facility: [facility] Address: [address] [place] [address] Performed By: #### 2 4356-8 ####[facility] [id number] [place] [address] [place] Epithelial cells LM.HPF (Urine sed) [#/Area] Few Normal [facility] Comment on above: Order Comment: Speci men Type: URINE SPECIMENOrdering Facility: [facility] Address: [address] [place], [place] [address] Performed By: #### 2 4356-8 ####[facility] [id number] [place] [address] [place] Glucose Test strip (U) [Mass/Vol] Negative Normal Trace, Negative [facility] Comment on above: Order Comment: Speci men Type: URINE SPECIMENOrdering Facility: [facility] Address: [address] [address] Performed By: #### 2 4356-8 ####[facility]IA [id number] [place] [address] [place] Hemoglobin Ql (U) Negative Normal Negative, Trace [facility] Comment on above: Order Comment: Speci men Type: URINE SPECIMENOrdering Facility: [facility] Address: [address] [place] [address] Performed By: #### 2 4356-8 ####[facility] LABORATORYIA [id number] [place] [address] [place] Ketones Ql (U) Negative Normal Negative, Trace [facility] Comment on above: Order Comment: Speci men Type: URINE SPECIMENOrdering Facility: [facility] Address: [address] [place] [address] Performed By: #### 2 4356-8 ####[facility]IA [id number] [place] [address] [place] Leukocyte esterase Test strip Ql (U) Negative Normal Negative, 25 Patito/uL [facility] Comment on above: Order Comment: Speci men Type: URINE SPECIMENOrdering Facility: [facility] Address: [address] [place] [address] Performed By: #### 2 4356-8 ####[facility] LABORATORYIA [id number] [place] [address] [place] Nitrite Ql (U) Negative Normal Negative [facility] Comment on above: Order Comment: Speci men Type: URINE SPECIMENOrdering Facility: [facility] Address: [address] [place] [address] Performed By: #### 2 4356-8 ####[facility] LABORATORYIA [id number] [place] [address] [place] pH (U) 6.5 [pH] Normal 5.0-8.0 [facility] Comment on above: Order Comment: Speci men Type: URINE SPECIMENOrdering Facility: [facility] Address: [address] [place] [address] Performed By: #### 2 4356-8 ####[facility] [id number] [place] [address] [place] Protein (U) [Mass/Vol] Negative Normal Trace, Negative [facility] Comment on above: Order Comment: Speci men Type: URINE SPECIMENOrdering Facility: [facility] Address: [address] [address] Performed By: #### 2 6-8 ####[facility] [id number] [place] [address] [place] RBC LM.HPF (Urine sed) [#/Area] 0-3 /HPF Normal 0-3 /HPF [facility] Comment on above: Order Comment: Speci men Type: URINE SPECIMENOrdering Facility: [facility] Address: [address] [place] [address] Performed By: #### 2 6-8 ####[facility] [id number] [place] [address] [place] Specific gravity (U) [Rel density] 1.041 High 1.005-1.030 [facility] Comment on above: Order Comment: Speci men Type: URINE SPECIMENOrdering Facility: [facility] Address: [address] [place] [address] Performed By: #### 2 6-8 ####[facility] [id number] [place] [address] [place] Urobilinogen Ql (U) Normal Normal Negative [facility] Comment on above: Order Comment: Speci men Type: URINE SPECIMENOrdering Facility: [facility] Address: [address] [place] [address] Performed By: #### 2 4356-8 ####[facility] [id number] [place] [address] [place] WBC LM.HPF (Urine sed) [#/Area] 0-5 /HPF Normal 0-5 /HPF [facility] Comment on above: Order Comment: Speci men Type: URINE SPECIMENOrdering Facility: [facility] Address: [place] [address] Performed By: #### 2 4356-8 ####[facility] LABORATORYCLIA [id number] [facility] [place] [address] [place] XR ABDOMEN (2 VIEWS)on [...] Kuldip Laughlin MD 10/23/22 Final result Normal [facility] CBC with Diffon 10-23-2022 Abs. Basophil 0.03 k/uL Normal 0.00-0.20 [facility] Comment on above: Performed By: #### L KEVIN CP, CDP #### [facility] [address] [place] [address] [place] [address] [employer] Repairer: Baldomero Espinoza MD Abs.Imm.Granulocyte <0.03 Normal 0.00-0.30 [facility] Comment on above: Performed By: #### L IP CP, CDP #### [facility] [address] [place] [address] [employer] Repairer: Baldomero Espinoza MD Abs.Neutrophil (Seg) 3.51 k/uL Normal 1.50-8.10 [facility] Comment on above: Performed By: #### L IP, CP, CDP #### [facility] [address] [place], [facility] [employer] Repairer: Baldomero Espinoza MD Basophils/100 WBC (Bld) 1 % Normal 0-2 [facility] Comment on above: Performed By: #### L IP, CP, CDP #### [facility] [address] [place], [facility] [employer] Repairer: Baldomero Espinoza MD Eosinophils (Bld) [#/Vol] 0.07 10*3/uL Normal 0.00-0.44 [facility] Comment on above: Performed By: #### L IP, CP, CDP #### [address] [place] [address] [employer] Repairer: Baldomero Espinoza MD Eosinophils/100 WBC (Bld) 1 % Normal 1-4 [facility] Comment on above: Performed By: #### L IP, CP, CDP #### [address] [place], [place] [address] [employer] Repairer: Baldomero Espinoza MD Erythrocyte distribution width (RBC) [Ratio] 12.7 % Normal 11.8-14.4 [facility] Comment on above: Performed By: #### L IP, CP, CDP #### [address] [place], [facility] [employer] Repairer: Baldomero Espinoza MD Hematocrit (Bld) [Volume fraction] 36.0 % Low 36.3-47.1 [facility] Comment on above: Performed By: #### L IP, CP, CDP #### [address] [place], [facility] [employer] Repairer: Baldomero Espinoza MD Hemoglobin (Bld) [Mass/Vol] 12.2 g/dL Normal 11.9-15.1 [facility] Comment on above: Performed By: #### L IP, CP, CDP #### [address] [place], [facility] [employer] Repairer: Baldomero Espinoza MD Immature granulocytes/100 WBC (Bld) 0 % Normal 0 [facility] Comment on above: Performed By: #### L IP CP, CDP #### [facility] [address] [place], [place] [address]83 [employer] Repairer: Baldomero Espinoza MD Lymphocytes (Bld) [#/Vol] 2.05 10*3/uL Normal 1.10-3.70 [facility] Comment on above: Performed By: #### L IP, CP, CDP #### [facility] [address] [place] [address] [place] [place], [place] 2523483 [employer] Repairer: Baldomero Espinoza MD Lymphocytes/100 WBC (Bld) 34 % Normal 24-43 [facility] Comment on above: Performed By: #### L KEVIN CP, CDP #### [address] [place], [facility] [employer] Repairer: Baldomero Espinoza MD MCH (RBC) [Entitic mass] 30.8 pg Normal 25.2-33.5 [facility] Comment on above: Performed By: #### L JUDITH BROWN, CDP #### [address] [place], [facility] [employer] Repairer: Baldomero Espinoza MD MCHC (RBC) [Mass/Vol] 33.9 g/dL Normal 28.4-34.8 [facility] Comment on above: Performed By: #### L KEVIN CP, CDP #### [address] [place], [place] [address]83 [employer] Repairer: Baldomero Espinoza MD MCV (RBC) [Entitic vol] 90.9 fL Normal 82.6-102.9 [facility] Comment on above: Performed By: #### L IP, CP, CDP #### [facility] [address] [place] [address] [employer] Repairer: Baldomero Espinoza MD Monocytes (Bld) [#/Vol] 0.44 10*3/uL Normal 0.10-1.20 [facility] Comment on above: Performed By: #### L IP, CP, CDP #### [facility] [address] [place], [place] 287[address]283 [employer] Repairer: Baldomero Espinoza MD Monocytes/100 WBC (Bld) 7 % Normal 3-12 [facility] Comment on above: Performed By: #### L IP, CP, CDP #### [facility] [address] [place] [address] [employer] Repairer: Baldomero Espinoza MD Neutrophil (Seg) 57 % Normal 36-65 [facility] Comment on above: Performed By: #### L IP, CP, CDP #### [address] [place], [place] 530[address]83 [employer] Repairer: Baldomero Espinoza MD NRBC Automated 0.0 per 100 WBC Normal 0.0 [facility] Comment on above: Performed By: #### L IP CP, CDP #### [address] [place] [address] [employer] Repairer: Baldomero Espinoza MD Platelet mean volume (Bld) [Entitic vol] 11.1 fL Normal 8.1-13.5 [facility] Comment on above: Performed By: #### L IP CP, CDP #### [address] [place] [address] [employer] Repairer: Baldomero Espinoza MD Platelets (Bld) [#/Vol] 226 10*3/uL Normal 138-453 [facility] Comment on above: Performed By: #### L IP, CP, CDP #### [address] [place], [place] [phone] [employer] Repairer: Baldomero Espinoza MD RBC (Bld) [#/Vol] 3.96 10*6/uL Normal 3.95-5.11 [facility] Comment on above: Performed By: #### L IP, CP, CDP #### [facility] [address] [place], [place] 5936283 [employer] Repairer: Baldomero Espinoza MD WBC (Bld) [#/Vol] 6.1 10*3/uL Normal 3.5-11.3 [facility] Comment on above: Performed By: #### L IP, CP, CDP #### [facility] [address] [place], [place] 1237183 [employer] Repairer: Baldomero Espinoza MD CNPNon 10-23-2022 CNPN Normal [facility] Comp Metabolic Profon 2022 Albumin [Mass/Vol] 4.1 g/dL Normal 3.5-5.2 [facility] Comment on above: Performed By: #### L IP, CP, CDP #### [facility] [address] [place], [place] 6[address]83 [employer] Repairer: Baldomero Espinoza MD Albumin/Glob Ratio 1.7 Normal 1.0-2.5 [facility] Comment on above: Performed By: #### L KEVIN CP, CDP #### [facility] [address] [place], [place] 9247383 [employer] Repairer: Baldomero Espinoza MD Alkaline Phos 64 U/L Normal 35-104 [facility] Comment on above: Performed By: #### L IP, CP, CDP #### [facility] [address] [place], [place] 396[address]83 [employer] Repairer: Baldomero Espinoza MD ALT [Catalytic activity/Vol] 19 U/L Normal 5-33 [facility] Comment on above: Performed By: #### L IP, CP, CDP #### [facility] [address] [place], [place] 8258483 [employer] Repairer: Baldomero Espinoza MD Anion gap [Moles/Vol] 11 mmol/L Normal 9-17 [facility] Comment on above: Performed By: #### L IP, CP, CDP #### [facility] [address] [place], [place] [address]83 [employer] Repairer: Baldomero Espinoza MD AST [Catalytic activity/Vol] 33 U/L High <32 [facility] Comment on above: Performed By: #### L IP, CP, CDP #### [facility] [address] [place], [place] [address]83 [employer] Repairer: Baldomero Espinoza MD Bilirubin [Mass/Vol] 0.5 mg/dL Normal 0.3-1.2 [facility] Comment on above: Performed By: #### L IP, CP, CDP #### [facility] [address] [place], [place] 1034483 [employer] Repairer: Baldomero Espinoza MD BUN/CRE Ratio 14 Normal 9-20 [facility] Comment on above: Performed By: #### L IP, CP, CDP #### [address] [place], [place] [address]13783 [employer] Repairer: Baldomero Espinoza MD Calcium [Mass/Vol] 9.0 mg/dL Normal 8.6-10.4 [facility] Comment on above: Performed By: #### L IP, CP, CDP #### [address] [place], [place] 6829883 [employer] Repairer: Baldomero Espinoza MD Chloride [Moles/Vol] 103 mmol/L Normal 98-107 [facility] Comment on above: Performed By: #### L IP, CP, CDP #### [facility] [address] [place], [place] 700[address]83 [employer] Repairer: Baldomero Espinoza MD CO2 [Moles/Vol] 22 mmol/L Normal 20-31 [facility] Comment on above: Performed By: #### L IP, CP, CDP #### [facility] [address] [place], [place] 6710483 [employer] Repairer: Baldomero Espinoza MD Creatinine [Mass/Vol] 0.7 mg/dL Normal 0.5-0.9 [facility] Comment on above: Performed By: #### L KEVIN CP, CDP #### [facility] [address] [place] [address] [employer] Repairer: Baldomero Espinoza MD GFR/1.73 sq M.predicted among non-blacks MDRD (S/P/Bld) [Vol rate/Area] mL/min/{1.73_m2} Normal >60 [facility] Comment on above: Result Comment: These [...] By: #### L KEVIN CP, CDP #### [facility] [address] [place] [address] [place] [address] [employer] Repairer: Baldomero Espinoza MD Glucose [Mass/Vol] 86 mg/dL Normal 70-99 [facility] Comment on above: Performed By: #### L KEVIN CP, CDP #### [address] [place] [address] [employer] Repairer: Baldomero Espinoza MD Potassium [Moles/Vol] 3.4 mmol/L Low 3.7-5.3 [facility] Comment on above: Performed By: #### L KEVIN CP, CDP #### [facility] [address] [place] [address] [place] [address] [employer] Repairer: Baldomero Espinoza MD Protein [Mass/Vol] 6.5 g/dL Normal 6.4-8.3 [facility] Comment on above: Performed By: #### L IP CP, CDP #### [facility] [address] [place] [address] [place] [address] [employer] Repairer: Baldomero Espinoza MD Sodium [Moles/Vol] 136 mmol/L Normal 135-144 [facility] Comment on above: Performed By: #### L JUDITH BROWN, CDP #### [facility] [address] [place] [address] [employer] Repairer: Baldomero Espinoza MD Urea nitrogen [Mass/Vol] 10 mg/dL Normal 6-20 [facility] Comment on above: Performed By: #### L JUDITH BROWN, CDP #### [facility] [address] [place] [address] [employer] Repairer: Baldomero Espinoza MD HCG, ,Urineon 10-23 Beta HCG ( test) Ql (U) Negative Normal NEG [facility] Comment on above: Result Comment: Spec imens with hCG levels near the threshold of the test (25 mIU/mL) may give a negative or indeterminate result. In such cases, another test should be performed with a new specimen in 48-72 hours. If early is suspected clinically in this setting, correlation with quantitative serum b-hCG level is suggested. [facility] has confirmed the use of plasma for this test. This has not been cleared or approved by the U.S. Food and Drug Administration. The FDA has determined that such clearance is not necessary. Performed By: #### U HCG, UAMIC #### [facility] [address] [place] [address] [employer] Repairer: Baldomero Espinoza MD Lactic Acidon 4 Lactate [Moles/Vol] 0.8 mmol/L Normal 0.5-2.2 [facility] Comment on above: Performed By: #### L ACTIC #### [facility] [address] [place] [address] [employer] Repairer: Baldomero Espinoza MD Lipaseon 10-23-2022 Lipase [Catalytic activity/Vol] 32 U/L Normal 13-60 [facility] Comment on above: Performed By: #### L JUDITH BROWN, CDP #### [facility] [address] [place], [place] 9880283 [employer] Repairer: Baldomero Espinoza MD Urinalysis w/ Microon 2022 Bacteria 1+ Abnormal NONE [facility] Comment on above: Performed By: #### U HCG, UAMIC ####[facility] , [place] 2541083 Lab Director: Baldomero Espinoza MD Bilirubin, SemiQt,Ur Negative Normal NEG [facility] Comment on above: Performed By: #### U HCG, UAMIC ####[address] , [place] 1702083 Lab Director: Baldomero Espinoza MD Blood, Urine Negative Normal NEG [facility] Comment on above: Performed By: #### U HCG, UAMIC ####[address] , [place] 7385683 Lab Director: Baldomero Espinoza MD Clarity (U) Clear Normal CLEAR [facility] Comment on above: Performed By: #### U HCG, UAMIC ####[address] , [place] 9662183 Lab Director: Baldomero Espinoza MD Color (U) Yellow Normal YEL [facility] Comment on above: Performed By: #### U HCG, UAMIC ####[address] , [place] 9991583 Lab Director: Baldomero Espinoza MD Epithelial cells LM Ql (Urine sed) 2 TO 5 Normal 0-25 [facility] Comment on above: Performed By: #### U HCG, UAMIC ####[address] , [place] 7137683 Lab Director: Baldomero Espinoza MD Glucose Ql (U) Negative Normal NEG [facility] Comment on above: Performed By: #### U HCG, UAMIC ####[address] [place] [address] Lab Director: Baldomero Espinoza MD Ketones Ql (U) Negative Normal NEG [facility] Comment on above: Performed By: #### U HCG, UAMIC ####[address] [place] [address] Lab Director: Baldomero Espinoza MD Leukocyte esterase Test strip Ql (U) Negative Normal NEG [facility] Comment on above: Performed By: #### U HCG, UAMIC ####[address] , [place] 2602683 Lab Director: Baldomero Espinoza MD Mucus Strands TRACE Abnormal NONE [facility] Comment on above: Performed By: #### U HCG, UAMIC ####[address] [place] [address] Lab Director: Baldomero Espinoza MD Nitrite,Ur Negative Normal NEG [facility] Comment on above: Performed By: #### U HCG, UAMIC ####[address] [place] [address] Lab Director: Baldomero Espinoza MD PH,Ur 6.5 Normal 5.0-9.0 [facility] Comment on above: Performed By: #### U HCG, UAMIC ####[address] [place] [address] Lab Director: Baldomero Espinoza MD Protein Ql (U) Negative Normal NEG [facility] Comment on above: Performed By: #### U HCG, UAMIC ####[address] , [place] 6279183 Lab Director: Baldomero Espinoza MD Spec. [place],Ur 1.010 Normal 1.010-1.020 [facility] Comment on above: Performed By: #### U HCG, UAMIC ####[address] [place] [address] lab Director: Baldomero Epsinoza MD Urine RBC's 0 TO 2 Normal 0-2 [facility] Comment on above: Performed By: #### U HCG, UAMIC ####[address] , [place] 5077783 lab Director: Baldomero Espinoza MD Urine WBC's 0 TO 2 Normal 0-5 [facility] Comment on above: Performed By: #### U HCG, UAMIC ####[address] , [place] 4051383 lab Director: Baldomero Espinoza MD Urobilinogen,Ur Normal Normal 0.0-1.0 [facility] Comment on above: Performed By: #### U HCG, UAMIC ####[address] , [place] 5280683 lab Director: Baldomero Espinoza MD Auto Diffon 10-20-2022 Basophils/100 WBC (Bld) 1.0 % Normal 0.0-2.0 [facility] Comment on above: Order Comment: Order Added by Discern Expert. Performed By: #### 2 781899, 8265972, 3837819, 54964502, 9291879 ####[facility] [address] [place] [address] Basophils/Leukocyte s Auto (Bld) [Pure # fraction] 0.0 E9/L Normal 0.0-0.2 [facility] Comment on above: Order Comment: Order Added by Discern Expert. Performed By: #### 2 323719, 0274167, 0541500, 16275605, 1269453 ####[facility] [address] [place] [address] Eosinophils/100 WBC (Bld) 2.2 % Normal 0.0-8.0 [facility] Comment on above: Order Comment: Order Added by Discern Expert. Performed By: #### 2 197617, 7023038, 9916717, 11580586, 4880400 ####[address] [place] [address] Eosinophils/Leukocy stevan Auto (Bld) [Pure # fraction] 0.1 E9/L Normal 0.0-0.5 [facility] Comment on above: Order Comment: Order Added by Discern Expert. Performed By: #### 2 089329, 6993082, 0467475, 53977964, 6526358 ####[address] [address] Lymphocytes/100 WBC (Bld) 35.9 % Normal 14.0-50.0 [facility] Comment on above: Order Comment: Order Added by Discern Expert. Performed By: #### 2 237929, 6591723, 0576309, 17468464, 7345008 ####[address] [address] Lymphocytes/Leukocy stevan Auto (Bld) [Pure # fraction] 1.6 E9/L Normal 1.0-4.0 [facility] Comment on above: Order Comment: Order Added by Discern Expert. Performed By: #### 2 429872, 6655033, 0892117, 54904788, 0999345 ####[address] [address] Monocytes/100 WBC (Bld) 5.9 % Normal 4.0-14.0 [facility] Comment on above: Order Comment: Order Added by Discern Expert. Performed By: #### 2 508205, 1786597, 8282808, 71103761, 7284859 ####[address] [place] [address] Monocytes/Leukocyte s Auto (Bld) [Pure # fraction] 0.3 E9/L Normal 0.2-1.0 [facility] Comment on above: Order Comment: Order Added by Discern Expert. Performed By: #### 2 720726, 7532595, 2423754, 66669687, 5209402 ####[address] [address] Neutrophils/100 WBC (Bld) 55.0 % Normal 36.0-75.0 [facility] Comment on above: Order Comment: Order Added by Discern Expert. Performed By: #### 2 230414, 1405035, 0048065, 51269024, 0756663 ####[address] [place] [address] Neutrophils/Leukocy stevan Auto (Bld) [Pure # fraction] 2.5 E9/L Normal 2.0-7.5 [facility] Comment on above: Order Comment: Order Added by Discern Expert. Performed By: #### 2 302401, 1271404, 9416408, 00232697, 3110500 ####[address] [address] CBC w/ Auto Diffon 3 Erythrocyte distribution width (RBC) [Ratio] 14.0 % Normal 10.9-14.2 [facility] Comment on above: Performed By: #### 2 368872, 4634597, 1173288, 75531457, 9378395 ####[address] [address] Hematocrit (Bld) [Volume fraction] 40.1 % Normal 34.0-46.0 [facility] Comment on above: Performed By: #### 2 299373, 4543530, 7576031, 51616760, 3768310 ####[address] [address] Hemoglobin (Bld) [Mass/Vol] 13.7 g/dL Normal 12.0-16.0 [facility] Comment on above: Performed By: #### 2 398067, 9991201, 7427936, 56688418, 7372486 ####[address] [address] MCH (RBC) [Entitic mass] 30.7 pg Normal 27.0-34.0 [facility] Comment on above: Performed By: #### 2 843830, 0775847, 6868923, 63734751, 0409819 ####[facility] [address] [place] [address] MCHC (RBC) [Mass/Vol] 34.2 g/dL Normal 31.4-36.0 [facility] Comment on above: Performed By: #### 2 078407, 9641221, 8439928, 39958903, 7349603 ####[address] [place] 1484957 MCV (RBC) [Entitic vol] 89.9 fL Normal 80.0-100.0 [facility] Comment on above: Performed By: #### 2 930114, 9677837, 8408744, 94392002, 8964452 ####[place] [address] Platelet mean volume (Bld) [Entitic vol] 9.7 fL Normal 6.4-10.8 [facility] Comment on above: Performed By: #### 2 716608, 7431247, 3251823, 47536773, 9359626 ####[address] [address] Platelets (Bld) [#/Vol] 258.0 E9/L Normal 150.0-500.0 [facility] Comment on above: Performed By: #### 2 196609, 2763913, 1677542, 87884058, 0768214 ####[address] [address] RBC (Bld) [#/Vol] 4.5 E12/L Normal 4.3-5.9 [facility] Comment on above: Performed By: #### 2 604881, 5521527, 0829328, 67518505, 5677885 ####[address] [address] WBC corrected for nucl RBC Auto (Bld) [#/Vol] 4.5 E9/L Normal 4.0-11.0 [facility] Comment on above: Performed By: #### 2 704247, 2416525, 7001005, 88813213, 4622700 ####[facility] [address] [place] [address] CHEMISTRYOrdered By: SYSTEM SYSTEM on 10-20-2022 Albumin [...] rate/Area] 87 mL/min/1.73 m2 Normal >=59mL/min/1.73 m2 [facility] S Lipase [Catalytic activity/Vol] 35 U/L Normal 13 - 58 unit/L [facility] Remisol Potassium [Moles/Vol] 3.8 mmol/L Normal 3.5 - 5.3 mmol/L [facility] Remisol Protein [Mass/Vol] 7.2 g/dL Normal 6.0 - 7.8 gm/dL [facility] Sodium [Moles/Vol] 139 mmol/L Normal 135 - 145 mmol/L [facility] Remisol Urea nitrogen [Mass/Vol] 11 mg/dL Normal 5 - 21 mg/dL [facility] Remisol CHEMISTRYOrdered By: Pranav Meng on 09-05-2023 Albumin/Globulin [Mass ratio] 1.4 {ratio} Normal 1.1 - 2.2 [facility] S Anion gap [Moles/Vol] 11 mmol/L Normal 6 - 16 mEq/L [facility] S Globulin (S) [Mass/Vol] 3.0 g/dL Normal 1.4 - 4.0 gm/dL [facility] S Glucose [Mass/Vol] 86 mg/dL Normal 55 - 199 mg/dL [facility] Chem S Urea nitrogen/Creatinine [Mass ratio] 12 mg/mg Normal - [facility] S CMPon 10-20-2022 Albumin/Globulin (S) [Mass conc ratio] 1.4 Normal 1.1-2.2 [facility] Comment on above: Performed By: #### 2 583111, 4252018, 4477015, 85296852, 6626928 ####[facility] [address] [place] [address] Anion gap [Moles/Vol] 11 mmol/L Normal 6-16 [facility] Comment on above: Performed By: #### 2 306471, 5238909, 9471310, 93647573, 4504520 ####[facility] [address] [place] [address] Globulin (S) [Mass/Vol] 3.0 g/dL Normal 1.4-4.0 [facility] Comment on above: Performed By: #### 2 205070, 2301449, 2314904, 11188835, 8988380 ####[facility] [address] [place] [address] Glucose [Mass/Vol] 86 mg/dL Normal 55-199 [facility] Comment on above: Result Comment: If t his glucose result represents a fasting glucose, interpretation should refer to the following reference range: 55-99 mg/dL Performed By: #### 2 344437, 7821895, 6309353, 61162385, 9891659 ####[facility] [address] [place] [address] Urea nitrogen/Creatinine [Mass ratio] 12 No Units Normal - [facility] Comment on above: Performed By: #### 2 416605, 0756599, 8242336, 32096772, 3855782 ####[facility] [address] [place] [address] Albumin [Mass/Vol] 4.2 g/dL Normal 3.3-5.0 [facility] Comment on above: Performed By: #### 2 164934, 1334036, 5254365, 45962715, 2134394 ####[address] [place] [address] ALP [Catalytic activity/Vol] 55 Int._Unit/L Normal 21-98 [facility] Comment on above: Performed By: #### 2 960205, 4063492, 4910610, 68447307, 9883654 ####[address] [place] [address] ALT No additional P-5'-P [Catalytic activity/Vol] 27 Int._Unit/L Normal 6-46 [facility] Comment on above: Performed By: #### 2 997995, 6204552, 9783733, 20526821, 1590986 ####[facility] [address] [place] [address] AST [Catalytic activity/Vol] 42 Int._Unit/L Normal 5-43 [facility] Comment on above: Performed By: #### 2 001510, 2518850, 8317032, 65519513, 8105342 ####[address] [place] [address] Bilirubin [Mass/Vol] 0.4 mg/dL Normal 0.0-1.1 [facility] Comment on above: Performed By: #### 2 387056, 3689698, 3579900, 66482038, 6508077 ####[facility] [address] [place] [address] Calcium [Mass/Vol] 9.0 mg/dL Normal 8.9-11.1 [facility] Comment on above: Performed By: #### 2 655491, 0862669, 3808289, 55657158, 9615639 ####[facility] [address] [place] [address] Chloride [Moles/Vol] 108 mmol/L Normal 101-111 [facility] Comment on above: Performed By: #### 2 369992, 6130907, 5319480, 92942346, 4630475 ####[facility] [address] [place] [address] CO2 [Moles/Vol] 24 mmol/L Normal 21-31 [facility] Comment on above: Performed By: #### 2 090961, 3770514, 8209388, 51690842, 7539380 ####[facility] [address] [place] [address] Creatinine [Mass/Vol] 0.9 mg/dL Normal 0.5-1.3 [facility] Comment on above: Performed By: #### 2 719932, 6585146, 3892591, 11857265, 6313385 ####[facility] [address] [place] [address] Potassium [Moles/Vol] 3.8 mmol/L Normal 3.5-5.3 [facility] Comment on above: Performed By: #### 2 536869, 8810931, 2719607, 34145422, 6934157 ####[facility] [address] [place] [address] Protein [Mass/Vol] 7.2 g/dL Normal 6.0-7.8 [facility] Comment on above: Performed By: #### 2 203147, 0635142, 6198021, 91472229, 8517810 ####[facility] [address] [place] [address] Sodium [Moles/Vol] 139 mmol/L Normal 135-145 [facility] Comment on above: Performed By: #### 2 342121, 4648671, 7244922, 54948800, 2587081 ####[facility] [address] [place] [address] Urea nitrogen [Mass/Vol] 11 mg/dL Normal 5-21 [facility] Comment on above: Performed By: #### 2 122473, 0752553, 6763667, 18159841, 0430052 ####[facility] [address] [place] [address] CNPNon 10-20-2022 CNPN Normal [facility] CT Abdomen/Pelvis w/o Contra ston 10-20-2022 CT Abdomen/Pelvis w/o Contrast Normal [facility] CT Chest w/o Contraston CT Chest w/o Contrast Normal [facility] Consent for Treatmenton Consent for Treatment [id number] 2D#1.00CD:127 Normal [facility] Discharge Instructionson Discharge Instructions [id number] 178#1.00CD:127 Normal [facility] ED Clinical Summaryon 2022 ED Clinical Summary Normal [facility] ED Patient Education Noteon 10-20-2022 ED Patient Education Note Normal [facility] ED Patient Summaryon 023 ED Patient Summary Normal [facility] HEMATOLOGYOrdered By: SYSTEM SYSTEM on 10-20-2022 Basophils/100 [...] 5.9 % Normal 4.0 - 14.0 % [facility] Monocytes/Leukocyte s Auto (Bld) [Pure # fraction] 0.3 E9/L Normal 0.2 - 1.0 E9/L [facility] Neutrophils/100 WBC (Bld) 55.0 % Normal 36.0 - 75.0 % [facility] Neutrophils/Leukocy stevan Auto (Bld) [Pure # fraction] 2.5 E9/L Normal 2.0 - 7.5 E9/L [facility] HEMATOLOGYOrdered By: Aliyah Renteria on 10-20-2022 [...] 9.7 fL Normal 6.4 - 10.8 fL [facility] Platelets (Bld) [#/Vol] 258.0 E9/L Normal 150.0 - 500.0 E9/L [facility] RBC (Bld) [#/Vol] 4.5 E12/L Normal 4.3 - 5.9 E12/L [facility] WBC corrected for nucl RBC Auto (Bld) [#/Vol] 4.5 E9/L Normal 4.0 - 11.0 E9/L [facility] Lipase Levelon 10-20-2022 Lipase [Catalytic activity/Vol] 35 U/L Normal 13-58 [facility] Comment on above: Performed By: #### 2 316080, 9247203, 5620088, 23241376, 3591944 ####[facility] [address] [place] [address] Prescriptions/Work Noteson 0 10-20-2022 Prescriptions/Work Notes [id number]#1.00CD:127 Normal [facility] Prescriptions/Work Notes [id number]#1.00CD:127 Normal [facility] Comment on above: Other Comment: scann ed in error UA With Cult Reflexon 2022 Bilirubin Ql (U) Negative Normal Negative [facility] Comment on above: Performed By: #### 1 3729819 ####[facility] [address] [place] [address] Clarity (U) CLEAR Normal Clear [facility] Comment on above: Performed By: #### 1 8016381 ####[facility] [address] [place] [address] Color (U) YELLOW Normal Yellow [facility] Comment on above: Performed By: #### 1 7248743 ####[facility] [address] [place] [address] Epithelial cells.squamous LM.HPF (Urine sed) [#/Area] 3-4 Normal 0-2 [facility] Comment on above: Performed By: #### 1 0914444 ####[facility] [address] [place] [address] Glucose Test strip (U) [Mass/Vol] Negative Normal Negative [facility] Comment on above: Performed By: #### 1 1345909 ####[facility] [address] [place] [address] Hemoglobin Ql (U) Negative Normal Negative [facility] Comment on above: Performed By: #### 1 0680007 ####[facility] [address] [place] [address] Ketones (U) [Mass/Vol] Negative Normal Negative [facility] Comment on above: Performed By: #### 1 2301233 ####[place] [address] Pettibone.plasma/Lith ium.RBC (Bld) [Mass ratio] 0-3 Normal 0-3 [facility] Comment on above: Performed By: #### 1 7293688 ####[address] [address] Nitrite Ql (U) Negative Normal Negative [facility] Comment on above: Performed By: #### 1 7119704 ####[place] [address] pH (U) 7.5 [pH] Invalid Interpretation Code 5.0-9.0 [facility] Comment on above: Performed By: #### 1 3668046 ####[place] [address] Protein (U) [Mass/Vol] Negative Normal Negative [facility] Comment on above: Performed By: #### 1 6040144 ####[place] [address] Specific gravity (U) [Rel density] 1.015 Invalid Interpretation Code 1.005-1.030 [facility] Comment on above: Performed By: #### 1 9097656 ####[place] [address] Type of Urine collection method Clean Catch Normal [facility] Comment on above: Performed By: #### 1 6666320 ####[address] [address] Urobilinogen Qn (U) 0.2 {Munir'U}/dL Normal 0.0-1.0 [facility] Comment on above: Performed By: #### 1 6276583 ####[address] [address] WBC Auto Ql (U) Negative Normal Negative [facility] Comment on above: Performed By: #### 1 5695747 ####[address] [address] WBC LM.HPF (Urine sed) [#/Area] 0-5 Normal 0-5 [facility] Comment on above: Performed By: #### 1 9268663 ####[facility] [address] [place] [address] URINALYSISOrdered By: Edilberto Meng on 10-20-2022 Bilirubin [...] AM) Normal Negative [facility] UA Auto SS Pettibone.plasma/Lith ium.RBC (Bld) [Mass ratio] 0-3 /HPF Normal [...] [facility] UA Auto SS Urobilinogen Qn (U) 0.3763185 {Munir'U}/dL Normal 0.0 - 1.0 EU/dL [facility] UA Auto SS WBC Auto Ql (U) Negative (10/20/22 10:25 AM) Normal Negative [facility] UA Auto SS WBC LM.HPF (Urine sed) [#/Area] 0-5 /HPF Normal 0-5/HPF [facility] UA Auto SS eGFRon 10-20-2022 GFR/1.73 sq M.predicted among non-blacks MDRD (S/P/Bld) [Vol rate/Area] 87 mL/min/1.73 m2 Normal >=59 [facility] Comment on above: Order Comment: Order added by Discern Expert. Result Comment: Product Accountant alejandra kidney disease could be indicated at eGFR's of less than 60 mL/min/1.73m2. Kidney failure is indicated at less than 15 mL/min/1.73m2. Performed By: #### 2 256969, 3104717, 3126217, 32795447, 1174707 ####[facility] [address] [place] [address] Auto DiffOrdered By: SYSTEM SYSTEM on 10-19-2022 Basophils/100 WBC (Bld) 0.8 % Normal 0.0-2.0 [facility] Comment on above: Order Comment: Order Added by Mariela Expert. Performed By: #### 2 979848, 7229743, 11542154, 4493479, 3085810, 40040537, 6555778 ####[facility] [address] [place] [address] Basophils/Leukocyte s Auto (Bld) [Pure # fraction] 0.0 E9/L Normal 0.0-0.2 [facility] Comment on above: Order Comment: Order Added by Discern Expert. Performed By: #### 2 267053, 3647321, 30539891, 2974180, 3299564, 03733577, 9660713 ####[facility] [address] [place] [address] Eosinophils/100 WBC (Bld) 3.5 % Normal 0.0-8.0 [facility] Comment on above: Order Comment: Order Added by Mariela Expert. Performed By: #### 2 968090, 3659668, 37318810, 9338900, 1954516, 34182643, 1029380 ####[facility] [address] [place] [address] Eosinophils/Leukocy stevan Auto (Bld) [Pure # fraction] 0.2 E9/L Normal 0.0-0.5 [facility] Comment on above: Order Comment: Order Added by Discern Expert. Performed By: #### 2 740431, 3081261, 92902581, 0281284, 7940284, 62423299, 6830446 ####[place] [address] [address] Lymphocytes/100 WBC (Bld) 47.3 % Normal 14.0-50.0 [facility] Comment on above: Order Comment: Order Added by Discern Expert. Performed By: #### 2 909077, 2754186, 06657663, 2290013, 3280742, 50301752, 9665776 ####[place] [address] [address] Lymphocytes/Leukocy stevan Auto (Bld) [Pure # fraction] 2.1 E9/L Normal 1.0-4.0 [facility] Comment on above: Order Comment: Order Added by Mariela Expert. Performed By: #### 2 373525, 2880453, 70843049, 5081383, 1520635, 58985316, 1597540 ####[address] [address] Monocytes/100 WBC (Bld) 6.6 % Normal 4.0-14.0 [facility] Comment on above: Order Comment: Order Added by Discern Expert. Performed By: #### 2 447263, 7948586, 34100302, 4681865, 7884848, 90306284, 6062379 ####[address] [address] Monocytes/Leukocyte s Auto (Bld) [Pure # fraction] 0.3 E9/L Normal 0.2-1.0 [facility] Comment on above: Order Comment: Order Added by Mariela Expert. Performed By: #### 2 343205, 1112290, 43359346, 5409443, 5172020, 91479715, 8243100 ####[address] [place] [address] Neutrophils/100 WBC (Bld) 41.8 % Normal 36.0-75.0 [facility] Comment on above: Order Comment: Order Added by Discern Expert. Performed By: #### 2 693373, 9235413, 25633835, 7090673, 9892465, 82504405, 9300142 ####[place] [address] [place] [address] Neutrophils/Leukocy stevan Auto (Bld) [Pure # fraction] 1.8 E9/L Low 2.0-7.5 [facility] Comment on above: Order Comment: Order Added by Discern Expert. Performed By: #### 2 283343, 8388977, 60738415, 0618657, 9172580, 09669908, 6248691 ####[address] [address] BMPOrdered By: SYSTEM SYSTEM on 10-19-2022 Creatinine [Mass/Vol] 0.8 mg/dL Normal 0.5-1.3 [facility] Comment on above: Performed By: #### 2 620145, 7904907, 51253384, 5680492, 5470947, 71786197, 7578470 ####[place] [address] [place] [address] Urea nitrogen [Mass/Vol] 9 mg/dL Normal 5-21 [facility] Comment on above: Performed By: #### 2 893956, 7084449, 82618192, 3526793, 2278055, 11164313, 7320170 ####[address] [place] [address] Anion gap [Moles/Vol] 10 mmol/L Normal 6-16 [facility] Comment on above: Performed By: #### 2 210888, 2547052, 49304452, 3587951, 9047023, 40310502, 4682924 ####[address] [address] Calcium [Mass/Vol] 9.3 mg/dL Normal 8.9-11.1 [facility] Comment on above: Performed By: #### 2 883307, 5523030, 20790287, 6716916, 6219466, 29183053, 5367820 ####[facility] [address] [place] [address] Chloride [Moles/Vol] 108 mmol/L Normal 101-111 [facility] Comment on above: Performed By: #### 2 390132, 3780068, 21786510, 0829484, 2131197, 57870706, 3915409 ####[address] [address] CO2 [Moles/Vol] 25 mmol/L Normal 21-31 [facility] Comment on above: Performed By: #### 2 341780, 5995107, 70494218, 8076812, 0660005, 35715702, 5127236 ####[place] [address] [address] Glucose [Mass/Vol] 83 mg/dL Normal 55-199 [facility] Comment on above: Result Comment: If t his glucose result represents a fasting glucose, interpretation should refer to the following reference range: 55-99 mg/dL Performed By: #### 2 830086, 7191154, 84328794, 8456676, 0066313, 67736424, 5941980 ####[place] [address] [address] Potassium [Moles/Vol] 4.1 mmol/L Normal 3.5-5.3 [facility] Comment on above: Performed By: #### 2 960991, 5370596, 28078060, 7376120, 5627433, 10748993, 1394157 ####[place] [address] [place] [address] Sodium [Moles/Vol] 139 mmol/L Normal 135-145 [facility] R [facility] Comment on above: Performed By: #### 2 487893, 3943336, 22274057, 0842454, 0978543, 91583710, 9812257 ####[facility] [address] [place] [address] BMPon 10-19-2022 Urea nitrogen/Creatinine [Mass ratio] 11 No Units Normal 10-20 [facility] Comment on above: Performed By: #### 2 875750, 9533366, 23675021, 7032468, 0799973, 29918057, 5103476 ####[facility] [address] [place] [address] CBC w/ Auto DiffOrdered By: Kaye Das on 10-19-2022 Erythrocyte distribution width (RBC) [Ratio] 13.7 % Normal 10.9-14.2 [facility] Comment on above: Performed By: #### 2 529811, 2284623, 26598883, 4463868, 0956211, 11360126, 6245101 ####[address] [address] Hematocrit (Bld) [Volume fraction] 40.7 % Normal 34.0-46.0 [facility] Comment on above: Performed By: #### 2 638972, 5008090, 49751830, 3935262, 6075457, 77035885, 3819616 ####[address] [address] Hemoglobin (Bld) [Mass/Vol] 14.1 g/dL Normal 12.0-16.0 [facility] Comment on above: Performed By: #### 2 276900, 9716039, 66010377, 2974325, 2022856, 35591728, 4792093 ####[facility] [address] [place] [address] MCH (RBC) [Entitic mass] 31.0 pg Normal 27.0-34.0 [facility] Comment on above: Performed By: #### 2 617869, 4684692, 82612770, 0080827, 0158317, 65854953, 1524934 ####[address] [address] MCHC (RBC) [Mass/Vol] 34.5 g/dL Normal 31.4-36.0 [facility] Comment on above: Performed By: #### 2 293884, 6664003, 09564301, 4636832, 4246827, 85044510, 2597267 ####[place] [address] [place] [address] MCV (RBC) [Entitic vol] 89.8 fL Normal 80.0-100.0 [facility] Comment on above: Performed By: #### 2 055642, 0794854, 55012983, 2032190, 4192124, 24178964, 6201373 ####[place] [address] [address] Platelet mean volume (Bld) [Entitic vol] 10.3 fL Normal 6.4-10.8 [facility] Comment on above: Performed By: #### 2 950200, 3839075, 24933414, 3829012, 2163895, 25655327, 0456144 ####[place] [address] [address] Platelets (Bld) [#/Vol] 245.0 E9/L Normal 150.0-500.0 [facility] Comment on above: Performed By: #### 2 623363, 0006865, 29596496, 9833909, 9445296, 53264166, 5446770 ####[place] [address] [address] RBC (Bld) [#/Vol] 4.5 E12/L Normal 4.3-5.9 [facility] Comment on above: Performed By: #### 2 327238, 2459795, 62961240, 1766419, 4854636, 42999794, 7591256 ####[place] [address] [address] WBC corrected for nucl RBC Auto (Bld) [#/Vol] 4.4 E9/L Normal 4.0-11.0 [facility] Comment on above: Performed By: #### 2 119179, 4675566, 71411236, 2162204, 9616352, 01058077, 5582053 ####[facility] [address] CHEMISTRYOrdered By: SYSTEM SYSTEM on 10-19-2022 Albumin/Globulin [...] Consent for Treatmenton Consent for Treatment [id number] C7#1.00CD:127 Normal [facility] Discharge Instructionson Discharge Instructions [id number] 6#1.00CD:127 Normal [facility] ED Clinical Summaryon 2022 ED Clinical Summary Normal [facility] ED Note-Physicianon 10-20-19 ED Note-Physician Normal [facility] Comment on above: Result Comment: Elec tronically Signed By: Earnest Jett DO\.br\Date and Time Signed: 10/19/22 13:41 EDT ED Patient Education Noteon 10-19-2022 ED Patient Education Note Normal [facility] ED Patient Summaryon 023 ED Patient Summary Normal [facility] Hep Func Panelon 10-19-2022 Bilirubin.indirect [Mass or moles/Vol] UTC Abnormal 0.1-0.9 [facility] Comment on above: Result Comment: Resu lt verified by Discern Rule. Performed result [facility] (Unable to Calculate) was sent as an Alpha code due the inability to calculate a valid numeric value. Performed By: #### 2 672684, 2587012, 75680223, 2237431, 8447998, 62376151, 8456380 ####[address] [place] [address] Albumin/Globulin (S) [Mass conc ratio] 1.5 Normal 1.1-2.2 [facility] Comment on above: Performed By: #### 2 218778, 5294616, 30877869, 1545718, 3907342, 76643207, 4032430 ####[address] [place] [address] ALP [Catalytic activity/Vol] 63 Int._Unit/L Normal 21-98 [facility] Comment on above: Performed By: #### 2 613837, 5044566, 87066837, 6986899, 3017071, 94177795, 7158149 ####[address] [address] ALT No additional P-5'-P [Catalytic activity/Vol] 30 Int._Unit/L Normal 6-46 [facility] Comment on above: Performed By: #### 2 840882, 6156988, 07728066, 8473445, 6655392, 70647988, 7034646 ####[address] [place] [address] AST [Catalytic activity/Vol] 47 Int._Unit/L High 5-43 [facility] Comment on above: Performed By: #### 2 514926, 1459488, 48817899, 0605311, 4628341, 12029978, 8838457 ####[address] [place] [address] Hep Func PanelOrdered By: Freeze Tag SYSTEM on 10-19-2022 Albumin [Mass/Vol] 4.4 g/dL Normal 3.3-5.0 [facility] Comment on above: Performed By: #### 2 152738, 0591034, 90702854, 4583482, 6396594, 90377363, 3969285 ####[place] [address] [place] [address] Bilirubin [Mass/Vol] 0.5 mg/dL Normal 0.0-1.1 [facility] Comment on above: Performed By: #### 2 724694, 9226989, 25045619, 5848941, 0933555, 24105382, 2161188 ####[place] [address] [address] Globulin (S) [Mass/Vol] 3.0 g/dL Normal 1.4-4.0 [facility] Comment on above: Performed By: #### 2 157620, 1644229, 12566278, 5065968, 3867174, 05680346, 8213564 ####[place] [address] [address] Protein [Mass/Vol] 7.4 g/dL Normal 6.0-7.8 [facility] Comment on above: Performed By: #### 2 582805, 1449511, 17131985, 6332161, 1469755, 13723549, 3941720 ####[place] [address] [address] Bilirubin.direct [Mass/Vol] mg/dL Normal 0.1-0.4 [facility] Comment on above: Performed By: #### 2 747490, 5153505, 65832782, 0021514, 6164684, 75948242, 7793911 ####[place] [address] [address] Lipase LevelOrdered By: SYST EM SYSTEM on 10-19-2022 Lipase [Catalytic activity/Vol] 89 U/L High 13-58 [facility] Comment on above: Performed By: #### 2 819128, 1059167, 01341440, 2237237, 7826833, 53343121, 5038886 ####[place] [address] [address] Prescriptions/Work Noteson 0 10-19-2022 Prescriptions/Work Notes [id number]#1.00CD:127 Normal [facility] TSH With T4fr ReflexOrdered By: SYSTEM SYSTEM on 10-19-2022 TSH Qn 0.68 m[IU]/L Normal 0.34-5.60 [facility] Comment on above: Performed By: #### 2 879642, 3971956, 83470064, 7248074, 1304594, 01547562, 4507669 ####[facility] [address] [place] [address] UA With Cult Reflexon 2022 Bilirubin Ql (U) Negative Normal Negative [facility] Comment on above: Performed By: #### 1 4229639 ####[address] [address] Clarity (U) CLEAR Normal Clear [facility] Comment on above: Performed By: #### 1 4120964 ####[facility] [address] [place] [address] Color (U) YELLOW Normal Yellow [facility] Comment on above: Performed By: #### 1 9057737 ####[facility] [address] [place] [address] Epithelial cells.squamous LM.HPF (Urine sed) [#/Area] 0-2 Normal 0-2 [facility] Comment on above: Performed By: #### 1 5717187 ####[facility] [address] [place] [address] Glucose Test strip (U) [Mass/Vol] Negative Normal Negative [facility] Comment on above: Performed By: #### 1 9174111 ####[facility] [address] [place] [address] Hemoglobin Ql (U) Negative Normal Negative [facility] Comment on above: Performed By: #### 1 4825677 ####[address] [address] Ketones (U) [Mass/Vol] Negative Normal Negative [facility] Comment on above: Performed By: #### 1 7245921 ####[address] [address] Pettibone.plasma/Lith ium.RBC (Bld) [Mass ratio] 0-3 Normal 0-3 [facility] Comment on above: Performed By: #### 1 6927440 ####[address] [address] Nitrite Ql (U) Negative Normal Negative [facility] Comment on above: Performed By: #### 1 1431211 ####[address] [address] pH (U) 7.5 [pH] Invalid Interpretation Code 5.0-9.0 [facility] Comment on above: Performed By: #### 1 1171604 ####[address] [address] Protein (U) [Mass/Vol] Negative Normal Negative [facility] Comment on above: Performed By: #### 1 7934042 ####[address] [address] Specific gravity (U) [Rel density] 1.010 Invalid Interpretation Code 1.005-1.030 [facility] Comment on above: Performed By: #### 1 8089151 ####[address] [address] Type of Urine collection method Clean Catch Normal [facility] Comment on above: Performed By: #### 1 1257016 ####[address] [address] Urobilinogen Qn (U) 0.2 {Munir'U}/dL Normal 0.0-1.0 [facility] Comment on above: Performed By: #### 1 1490279 ####[address] [address] WBC Auto Ql (U) Negative Normal Negative [facility] Comment on above: Performed By: #### 1 6125252 ####[facility] [address] [place] [address] WBC LM.HPF (Urine sed) [#/Area] 0-5 Normal 0-5 [facility] Comment on above: Performed By: #### 1 3349509 ####[facility] [address] [place] [address] URINALYSISOrdered By: Kaye brito on 10-19-2022 Bilirubin [...] AM) Normal Negative [facility] UA Auto SS Pettibone.plasma/Lith ium.RBC (Bld) [Mass ratio] 0-3 /HPF Normal [...] [facility] UA Auto SS Urobilinogen Qn (U) 0.1520787 {Munir'U}/dL Normal 0.0 - 1.0 EU/dL [facility] UA Auto SS WBC Auto Ql (U) Negative (10/19/22 9:18 AM) Normal Negative [facility] UA Auto SS WBC LM.HPF (Urine sed) [#/Area] 0-5 /HPF Normal 0-5/HPF [facility] UA Auto SS XR Chest 2 Viewson 3 XR Chest 2 Views Normal [facility] eGFROrdered By: SYSTEM SYSTE M on 10-19-2022 GFR/1.73 sq M.predicted among non-blacks MDRD (S/P/Bld) [Vol rate/Area] 100 mL/min/1.73 m2 Normal >=59 [facility] S Comment on above: Order Comment: Order added by Discern Expert. Result Comment: Product Accountant alejandra kidney disease could be indicated at eGFR's of less than 60 mL/min/1.73m2. Kidney failure is indicated at less than 15 mL/min/1.73m2. Performed By: #### 2 754973, 9616995, 40836794, 9511209, 9008691, 02630071, 9246481 ####[facility] [address] [place] [address] ALLIED HEALTHon 10-18-2022 ALLIED HEALTH HNO ID: [id number] Author: Karina Gonzales Tech Service: ? Author [...] PERIPHERAL IV DATA: Inpatient - [facility] [facility] documentation RADIOLOGY DEPARTMENT: CT; Exam(s) Completed: Abdomen/Pelvis SIGNATURE: Tessa Griffin PATIENT NAME: Abbey Garcia DATE: October 18, 2022 TIME: 10:07 AM Normal [facility] CBC W Auto Differential pane l (Bld)on 10-18-2022 Basophils (Bld) [#/Vol] 0.03 10*3/uL Normal <0.11 [facility] Comment on above: Order Comment: Speci men Type: BLOOD SPECIMEN Ordering Facility: [facility] Address: [address] [place] [address] Performed By: #### 5 7021-8 #### [facility] CLIA [id number] [address] [place] [address] [place] Basophils/100 WBC (Bld) 0.8 % Normal [facility] Comment on above: Order Comment: Speci men Type: BLOOD SPECIMEN Ordering Facility: [facility] Address: [address] [address] Performed By: #### 5 7021-8 #### [facility] CLIA [id number] [address] [place] [address] [place] Differential cell count method Nom (Bld) Auto Normal [facility] Comment on above: Order Comment: Speci men Type: BLOOD SPECIMEN Ordering Facility: [facility] Address: [address] [address] Performed By: #### 5 7021-8 #### [facility] CLIA [id number] [address] Eosinophils (Bld) [#/Vol] 0.14 10*3/uL Normal <0.46 [facility] Comment on above: Order Comment: Speci men Type: BLOOD SPECIMEN Ordering Facility: [facility] Address: [address] [address] Performed By: #### 5 7021-8 #### [facility] CLIA [id number] [address] Eosinophils/100 WBC (Bld) 3.7 % Normal [facility] Comment on above: Order Comment: Speci men Type: BLOOD SPECIMEN Ordering Facility: [facility] Address: [address] [address] Performed By: #### 5 7021-8 #### [facility] CLIA [id number] [address] Erythrocyte distribution width (RBC) [Ratio] 12.7 % Normal 11.5-15.0 [facility] Comment on above: Order Comment: Speci men Type: BLOOD SPECIMEN Ordering Facility: [facility] Address: [address] [address] Performed By: #### 5 7021-8 #### [facility] CLIA [id number] [address] Hematocrit (Bld) [Volume fraction] 38.5 % Normal 36.0-46.0 [facility] Comment on above: Order Comment: Speci men Type: BLOOD SPECIMEN Ordering Facility: [facility] Address: [address] [address] Performed By: #### 5 7021-8 #### [facility] CLIA [id number] [address] [place] [address] [place] Hemoglobin (Bld) [Mass/Vol] 12.9 g/dL Normal 11.5-15.5 [facility] Comment on above: Order Comment: Speci men Type: BLOOD SPECIMEN Ordering Facility: [facility] Address: [address] [address] Performed By: #### 5 7021-8 #### [facility] CLIA [id number] [address] [place] Immature granulocytes (Bld) [#/Vol] 10*3/uL Normal <0.10 [facility] Comment on above: Order Comment: Speci men Type: BLOOD SPECIMEN Ordering Facility: [facility] Address: [address] [address] Performed By: #### 5 7021-8 #### [facility] CLIA [id number] [address] [place] Immature granulocytes/100 WBC (Bld) 0.3 % Normal [facility] Comment on above: Order Comment: Speci men Type: BLOOD SPECIMEN Ordering Facility: [facility] Address: [address] [address] Performed By: #### 5 7021-8 #### [facility] CLIA [id number] [address] [place] Lymphocytes (Bld) [#/Vol] 1.66 10*3/uL Normal 1.00-4.00 [facility] Comment on above: Order Comment: Speci men Type: BLOOD SPECIMEN Ordering Facility: [facility] Address: [address] [address] Performed By: #### 5 7021-8 #### [facility] CLIA [id number] [address] [place] Lymphocytes/100 WBC (Bld) 43.7 % Normal [facility] Comment on above: Order Comment: Speci men Type: BLOOD SPECIMEN Ordering Facility: [facility] Address: [address] [address] Performed By: #### 5 7021-8 #### [facility] CLIA [id number] [address] MCH (RBC) [Entitic mass] 30.2 pg Normal 26.0-34.0 [facility] Comment on above: Order Comment: Speci men Type: BLOOD SPECIMEN Ordering Facility: [facility] Address: [address] [place] [address] Performed By: #### 5 7021-8 #### [facility] CLIA [id number] [address] MCHC (RBC) [Mass/Vol] 33.5 g/dL Normal 30.5-36.0 [facility] Comment on above: Order Comment: Speci men Type: BLOOD SPECIMEN Ordering Facility: [facility] Address: [address] [place] [address] Performed By: #### 5 7021-8 #### [facility] CLIA [id number] [address] MCV (RBC) [Entitic vol] 90.2 fL Normal 80.0-100.0 [facility] Comment on above: Order Comment: Speci men Type: BLOOD SPECIMEN Ordering Facility: [facility] Address: [address] [place] [address] Performed By: #### 5 7021-8 #### [facility] CLIA [id number] [address] Monocytes (Bld) [#/Vol] 0.28 10*3/uL Normal <0.87 [facility] Comment on above: Order Comment: Speci men Type: BLOOD SPECIMEN Ordering Facility: [facility] Address: [address] [place] [address] Performed By: #### 5 7021-8 #### [facility] CLIA [id number] [address] Monocytes/100 WBC (Bld) 7.4 % Normal [facility] Comment on above: Order Comment: Speci men Type: BLOOD SPECIMEN Ordering Facility: [facility] Address: [address] [place] [address] Performed By: #### 5 7021-8 #### [facility] CLIA [id number] [address] [place] Neutrophils (Bld) [#/Vol] 1.68 10*3/uL Normal 1.45-7.50 [facility] Comment on above: Order Comment: Speci men Type: BLOOD SPECIMEN Ordering Facility: [facility] Address: [address] [address] Performed By: #### 5 7021-8 #### [facility] CLIA [id number] [address] [place] Neutrophils/100 WBC (Bld) 44.1 % Normal [facility] Comment on above: Order Comment: Speci men Type: BLOOD SPECIMEN Ordering Facility: [facility] Address: [address] [address] Performed By: #### 5 7021-8 #### [facility] CLIA [id number] [address] [place] Nucleated RBC (Bld) [#/Vol] 10*3/uL Normal <0.01 [facility] Comment on above: Order Comment: Speci men Type: BLOOD SPECIMEN Ordering Facility: [facility] Address: [address] [address] Performed By: #### 5 7021-8 #### [facility] CLIA [id number] [address] [place] Nucleated RBC/100 WBC (Bld) [Ratio] 0.0 /100 WBC Normal [facility] Comment on above: Order Comment: Speci men Type: BLOOD SPECIMEN Ordering Facility: [facility] Address: [address] [place] [address] Performed By: #### 5 7021-8 #### [facility] CLIA [id number] [address] [place] Platelet mean volume (Bld) [Entitic vol] 11.1 fL Normal 9.0-12.7 [facility] Comment on above: Order Comment: Speci men Type: BLOOD SPECIMEN Ordering Facility: [facility] Address: [address] [address] Performed By: #### 5 7021-8 #### [facility] CLIA [id number] [address] OF [facility] Platelets (Bld) [#/Vol] 231 10*3/uL Normal 150-400 [facility] Comment on above: Order Comment: Speci men Type: BLOOD SPECIMEN Ordering Facility: [facility] Address: [address] [address] Performed By: #### 5 7021-8 #### [facility] CLIA [id number] [address] [place] RBC (Bld) [#/Vol] 4.27 10*6/uL Normal 3.90-5.20 [facility] Comment on above: Order Comment: Speci men Type: BLOOD SPECIMEN Ordering Facility: [facility] Address: [address] [address] Performed By: #### 5 7021-8 #### [facility] CLIA [id number] [address] [place] WBC (Bld) [#/Vol] 3.80 10*3/uL Normal 3.70-11.00 [facility] Comment on above: Order Comment: Speci men Type: BLOOD SPECIMEN Ordering Facility: [facility] Address: [address] [place] [address] Performed By: #### 5 7021-8 #### [facility] CLIA [id number] [address] [place] CT ABD/PEL WO IVCONon 2022 CT ABD/PEL WO IVCON * * *Final Report* * * DATE OF EXAM: Oct 18 2022 10:07AM [facility] 0531 - CT ABD/PEL WO IVCON / [...] Tissues: No acute abnormality. Lower thorax: Unremarkable. Agency Owner (topogram) images: No additional findings. IMPRESSION: Stable findings as detailed above. No acute intra-abdominal or pelvic process seen. Solar Lab Technician: [facility] Transcribe Date/Time: Oct 18 2022 10:14A Dictated by : ADELA FISHER MD This examination was interpreted and the report reviewed and electronically signed by: ADELA FISHER MD on Oct 18 2022 10:21AM EST [id number] Normal [facility] Comprehensive metabolic 2000 panelon 10-18-2022 Albumin [Mass/Vol] 4.3 g/dL Normal 3.9-4.9 [facility] Comment on above: Order Comment: Speci men Type: BLOOD SPECIMEN Ordering Facility: [facility] Address: [address] [place] [id number] Performed By: #### 2 4323-8, 3040-3 #### [facility] CLIA [id number] [address] OF [facility] ALP [Catalytic activity/Vol] 73 U/L Normal 34-123 [facility] Comment on above: Order Comment: Speci men Type: BLOOD SPECIMEN Ordering Facility: [facility] Address: [address] [place] [address] Performed By: #### 2 4323-8, 3040-3 #### [facility] CLIA [id number] [address] OF [facility] ALT With P-5'-P [Catalytic activity/Vol] 24 U/L Normal 7-38 [facility] Comment on above: Order Comment: Speci men Type: BLOOD SPECIMEN Ordering Facility: [facility] Address: [address] [place] [address] Performed By: #### 2 43238, 3039-3 #### [facility] CLIA [id number] [address] Anion gap [Moles/Vol] 8 mmol/L Low 9-18 [facility] Comment on above: Order Comment: Speci men Type: BLOOD SPECIMEN Ordering Facility: [facility] Address: [address] [place] [address] Performed By: #### 2 4328, 0-3 #### [facility] CLIA [id number] [address] AST With P-5'-P [Catalytic activity/Vol] 36 U/L High 13-35 [facility] Comment on above: Order Comment: Speci men Type: BLOOD SPECIMEN Ordering Facility: [facility] Address: [address] [place] [address] Performed By: #### 2 4323-8, 3040-3 #### [facility] CLIA [id number] [address] [place] Bilirubin [Mass/Vol] 0.4 mg/dL Normal 0.2-1.3 [facility] Comment on above: Order Comment: Speci men Type: BLOOD SPECIMEN Ordering Facility: [facility] Address: [address] [address] Performed By: #### 2 4323-8, 0-3 #### [facility] CLIA [id number] [address] [place] Calcium [Mass/Vol] 8.9 mg/dL Normal 8.5-10.2 [facility] Comment on above: Order Comment: Speci men Type: BLOOD SPECIMEN Ordering Facility: [facility] Address: [address] [address] Performed By: #### 2 4323-8, 3039-3 #### [facility] CLIA [id number] 1 [place] [address] [place] Chloride [Moles/Vol] 108 mmol/L High 97-105 [facility] Comment on above: Order Comment: Speci men Type: BLOOD SPECIMEN Ordering Facility: [facility] Address: [address] [address] Performed By: #### 2 4328, 3039-3 #### [facility] CLIA [id number] 1 [place] [address] [place] CO2 [Moles/Vol] 26 mmol/L Normal 22-30 [facility] Comment on above: Order Comment: Speci men Type: BLOOD SPECIMEN Ordering Facility: [facility] Address: [address] [address] Performed By: #### 2 4328, 3039-3 #### [facility] CLIA [id number] 1 [place] [address] [place] Creatinine [Mass/Vol] 0.81 mg/dL Normal 0.58-0.96 [facility] Comment on above: Order Comment: Speci men Type: BLOOD SPECIMEN Ordering Facility: [facility] Address: [address] [place] [address] Performed By: #### 2 4323-8, 0-3 #### [facility] CLIA [id number] 1 [place] [address] [place] Creatinine and Glomerular filtration rate.predicted panel (S/P/Bld) 98 mL/min/1.73m??? Normal >=60 [facility] Comment on above: Order Comment: Gerlado marrero Type: BLOOD SPECIMEN Ordering Facility: [facility] Address: [address] [place] [address] Result Comment: Jessica mated Glomerular Filtration Rate [...] Performed By: #### 2 4323-8, 3040-3 #### [facility] CLIA [id number] [address] [place] [address] [place] Glucose [Mass/Vol] 85 mg/dL Normal 74-99 [facility] Comment on above: Order Comment: Geraldo marrero Type: BLOOD SPECIMEN Ordering Facility: [facility] Address: [address] [place] [address] Result Comment: The [place] [employer] (ADA) provides guidance for cutoff [...] Standards of Medical Care in Diabetes 2016, [place] [employer]. Diabetes Care. 2016.39(Suppl 1). Performed By: #### 2 4323-8, 3040-3 #### [facility] CLIA [id number] 1 [place] [address] [place] Potassium [Moles/Vol] 4.3 mmol/L Normal 3.7-5.1 [facility] Comment on above: Order Comment: Speci men Type: BLOOD SPECIMEN Ordering Facility: [facility] Address: [address] [address] Performed By: #### 2 4323-8, 3040-3 #### [facility] CLIA [id number] [address] [place] Protein [Mass/Vol] 6.4 g/dL Normal 6.3-8.0 [facility] Comment on above: Order Comment: Speci men Type: BLOOD SPECIMEN Ordering Facility: [facility] Address: [address] [place] [address] Performed By: #### 2 4323-8, 0-3 #### [facility] CLIA [id number] [address] OF [facility] Sodium [Moles/Vol] 142 mmol/L Normal 136-144 [facility] Comment on above: Order Comment: Speci men Type: BLOOD SPECIMEN Ordering Facility: [facility] Address: [address] [place] [address] Performed By: #### 2 4323-8, 0-3 #### [facility] CLIA [id number] [address] STATES OF [facility] Urea nitrogen [Mass/Vol] 8 mg/dL Normal 7-21 [facility] Comment on above: Order Comment: Speci men Type: BLOOD SPECIMEN Ordering Facility: [facility] Address: [address] [place] [address] Performed By: #### 2 4323-8, 0-3 #### [facility] CLIA [id number] [address] [place] ED NOTEon 10-18-2022 ED NOTE HNO ID: [id number] Author: Serafin Curiel RN Service: ? Author Type: Registered Nurse Type: ED Notes Filed: 10/18/2022 10:46 AM Note Text: Provider previously at bedside discussing results/findings. Discharge instructions, follow up recommendations and medications reviewed with patient. Pt advised to return to ED with worsening symptoms. Pt verbalizes understanding. Stable and ambulatory upon d/c Normal [facility] ED NOTE HNO ID: [id number] Author: Alannah Carter RN Service: ? Author Type: Registered Nurse Type: ED Notes Filed: 10/18/2022 7:53 AM Note Text: Bed: 26-ED Expected date: Expected time: Means of arrival: Comments: TRIAGE Normal [facility] ED PROV NOTEon 10-18-2022 ED PROV NOTE HNO ID: [id number] Author: Alverto Barrett MD Service: Emergency Medicine [...] Musculoskeletal: Gen (more content not included)... Normal [facility] Lipase SerPl-cCncon 10-19-19 23 Lipase [Catalytic activity/Vol] 34 U/L Normal [facility] Comment on above: Order Comment: Speci men Type: BLOOD SPECIMEN Ordering Facility: [facility] Address: [address] [place] [address] Performed By: #### 2 4323-8, 3040-3 #### [facility] CLIA [id number] [address] [place] [address] [place] Urinalysis complete panel (U )on 10-18-2022 Bilirubin Ql (U) Negative Normal Negative [facility] Comment on above: Order Comment: Speci men Type: URINE SPECIMEN Ordering Facility: [facility] Address: [address] [place] [address] Performed By: #### 2 4356-8 #### [facility] CLIA [id number] 1 [place] [address] [place] Clarity (Unsp spec) Clear Normal Clear [facility] Comment on above: Order Comment: Speci men Type: URINE SPECIMEN Ordering Facility: [facility] Address: [address] [address] Performed By: #### 2 4356-8 #### [facility] CLIA [id number] [address] [place] Color (U) Light Yellow Normal yellow [facility] Comment on above: Order Comment: Speci men Type: URINE SPECIMEN Ordering Facility: [facility] Address: [address] [place] [address] Performed By: #### 2 4356-8 #### [facility] CLIA [id number] [address] Epithelial cells LM.HPF (Urine sed) [#/Area] Few Normal [facility] Comment on above: Order Comment: Speci men Type: URINE SPECIMEN Ordering Facility: [facility] Address: [address] [place] [address] Performed By: #### 2 4356-8 #### [facility] CLIA [id number] [address] Glucose Test strip (U) [Mass/Vol] Negative Normal Trace, Negative [facility] Comment on above: Order Comment: Speci men Type: URINE SPECIMEN Ordering Facility: [facility] Address: [address] [place] [address] Performed By: #### 2 4356-8 #### [facility] CLIA [id number] [address] Hemoglobin Ql (U) Negative Normal Negative, Trace [facility] Comment on above: Order Comment: Speci men Type: URINE SPECIMEN Ordering Facility: [facility] Address: [address] [place] [address] Performed By: #### 2 4356-8 #### [facility] CLIA [id number] [address] Ketones Ql (U) Negative Normal Negative, Trace [facility] Comment on above: Order Comment: Speci men Type: URINE SPECIMEN Ordering Facility: [facility] Address: [address] [address] Performed By: #### 2 4356-8 #### [facility] CLIA [id number] [address] Leukocyte esterase Test strip Ql (U) Negative Normal Negative, 25 [place]/uL [facility] Comment on above: Order Comment: Speci men Type: URINE SPECIMEN Ordering Facility: [facility] Address: [address] [address] Performed By: #### 2 4356-8 #### [facility] CLIA [id number] [address] Nitrite Ql (U) Negative Normal Negative [facility] Comment on above: Order Comment: Speci men Type: URINE SPECIMEN Ordering Facility: [facility] Address: [address] [place] [address] Performed By: #### 2 4356-8 #### [facility] CLIA [id number] [address] [place] pH (U) 7.5 [pH] Normal 5.0-8.0 [facility] Comment on above: Order Comment: Speci men Type: URINE SPECIMEN Ordering Facility: [facility] Address: [address] [place] [address] Performed By: #### 2 4356-8 #### [facility] CLIA [id number] [address] Protein (U) [Mass/Vol] Negative Normal Trace, Negative [facility] Comment on above: Order Comment: Speci men Type: URINE SPECIMEN Ordering Facility: [facility] Address: [address] [place] [address] Performed By: #### 2 4356-8 #### [facility] CLIA [id number] [address] RBC LM.HPF (Urine sed) [#/Area] 0-3 /HPF Normal 0-3 /HPF [facility] Comment on above: Order Comment: Speci men Type: URINE SPECIMEN Ordering Facility: [facility] Address: [address] [place] [address] Performed By: #### 2 4356-8 #### [facility] CLIA [id number] [address] Specific gravity (U) [Rel density] 1.008 Normal 1.005-1.030 [facility] Comment on above: Order Comment: Speci men Type: URINE SPECIMEN Ordering Facility: [facility] Address: [address] [place] [address] Performed By: #### 2 4356-8 #### [facility] CLIA [id number] [address] Urobilinogen Ql (U) Normal Normal Negative [facility] Comment on above: Order Comment: Speci men Type: URINE SPECIMEN Ordering Facility: [facility] Address: [address] [place] [address] Performed By: #### 2 4356-8 #### [facility] CLIA [id number] [address] WBC LM.HPF (Urine sed) [#/Area] 0-5 /HPF Normal 0-5 /HPF [facility] Comment on above: Order Comment: Speci men Type: URINE SPECIMEN Ordering Facility: [facility] Address: [address] [place] [address] Performed By: #### 2 4356-8 #### [facility] CLIA [id number] [address] Urinalysis w/ Microon 2022 Bilirubin, SemiQt,Ur Negative Normal NEG [facility] Comment on above: Performed By: #### U AMIC #### [facility] [address] [place] [address] [employer] Assembly Repairer: Baldomero Espinoza MD Blood, Urine Negative Normal NEG [facility] Comment on above: Performed By: #### U AMIC #### [facility] [address] [place] [address] [employer] Assembly Repairer: Baldomero Espinoza MD Clarity (U) Clear Normal CLEAR [facility] Comment on above: Performed By: #### U AMIC #### [facility] [address] [place] [address] [employer] Assembly Repairer: Baldomero Espinoza MD Color (U) Yellow Normal YEL [facility] Comment on above: Performed By: #### U AMIC #### [facility] [address] [place], [place] [address] [employer] Repairer: Baldomero Espinoza MD Epithelial cells LM Ql (Urine sed) None Normal 0-25 [facility] Comment on above: Performed By: #### U AMIC #### [facility] [address] [place], [place] [id number] [employer] Assembly Repairer: Baldomero Espinoza MD Glucose Ql (U) Negative Normal NEG [facility] Comment on above: Performed By: #### U AMIC #### [facility] [address] [place], [place] [phone] [employer] Assembly Repairer: Baldomero Espinoza MD Ketones Ql (U) Negative Normal NEG [facility] Comment on above: Performed By: #### U AMIC #### [facility] [address] [place] [address] [place]. [place], [place] [address] [employer] Assembly Repairer: Baldomero Espinoza MD Leukocyte esterase Test strip Ql (U) Negative Normal NEG [facility] Comment on above: Performed By: #### U AMIC #### [facility] [address] [place] [address] [place]. [place], [place] [id number] [employer] Assembly Repairer: Baldomero Espinoza MD Nitrite,Ur Negative Normal NEG [facility] Comment on above: Performed By: #### U AMIC #### [facility] [address] [place] [address] [place]. [place], [place] [id number] [employer] Assembly Repairer: Baldomero Espinoza MD PH,Ur 6.5 Normal 5.0-9.0 [facility] Comment on above: Performed By: #### U AMIC #### [facility] [address] [place] [address] Dr. [place], [place] [id number] [employer] Assembly Repairer: Baldomero Espinoza MD Protein Ql (U) Negative Normal NEG [facility] Comment on above: Performed By: #### U AMIC #### [facility] [address] [place] [address] [place] [address] [employer] Assembly Repairer: Baldomero Espinoza MD Spec. [place],Ur 1.020 Normal 1.010-1.020 [facility] Comment on above: Performed By: #### U AMIC #### [facility] [address] [place] [id number] [employer] Assembly Repairer: Baldomero Espinoza MD Urine RBC's None Normal 0-2 [facility] Comment on above: Performed By: #### U AMIC #### [facility] [address] [place] [id number] [employer] Assembly Repairer: Baldomero Espinoza MD Urine WBC's None Normal 0-5 [facility] Comment on above: Performed By: #### U AMIC #### [facility] [address] [place] [address] [employer] Assembly Repairer: Baldomero Espinoza MD Urobilinogen,Ur Normal Normal 0.0-1.0 [facility] Comment on above: Performed By: #### U AMIC #### [facility] [address] [place] [address] [employer] Assembly Repairer: Baldomero Espinoza MD [facility] 10-08-2022 Forms [id number] 26#1.00CD:127 Normal [facility] Ambulatory Visit Summaryon 0 10-07-2022 Ambulatory Visit Summary Normal [address] [place] [address]- \.br\ Medications\.br\ What How Much When Why [...] Metabolic syndrome\.br\ PCOS- polycystic ovary syndrome\.br\ \.br\ [facility] Family Medicine Office/Clini c Noteon 10-07-2022 Family Medicine Office/Clinic Note Normal [facility] Comment on above: Result Comment: Elec tronically Signed By: Jaquan Paula\.br\Date and Time Signed: 10/07/22 16:37 EDT Operative Reporton 3 Operative Report [id number] 4C#1.00CD:127 Normal [facility] CNOVon 09-18-2022 CNOV Normal [facility] CNPNon 09-04-2022 CNPN Normal [facility] C3 COMPLEMENT BLDon 06-13-19 Complement C3 [Mass/Vol] 140 mg/dL 86 - 166 mg/dL [facility] C4 COMPLEMENT BLDon 06-13-19 Complement C4 [Mass/Vol] 25 mg/dL 13 - 46 mg/dL [facility] CBC W Auto Differential pane l (Bld)on 06-12-2022 Basophils (Bld) [#/Vol] 0.04 10*3/uL <0.11 k/uL [facility] Basophils/100 WBC (Bld) 0.9 % [facility] Differential cell count method Nom (Bld) Auto [facility] Eosinophils (Bld) [#/Vol] 0.09 10*3/uL <0.46 k/uL [facility] Eosinophils/100 WBC (Bld) 2.0 % [facility] Erythrocyte distribution width (RBC) [Ratio] 12.8 % 11.5 - 15.0 % [facility] Hematocrit (Bld) [Volume fraction] 40.5 % 36.0 - 46.0 % [facility] Hemoglobin (Bld) [Mass/Vol] 13.4 g/dL 11.5 - 15.5 g/dL [facility] Immature granulocytes (Bld) [#/Vol] <0.10 k/uL [facility] Immature granulocytes/100 WBC (Bld) 0.2 % [facility] Lymphocytes (Bld) [#/Vol] 1.73 10*3/uL 1.00 - 4.00 k/uL [facility] Lymphocytes/100 WBC (Bld) 37.9 % [facility] MCH (RBC) [Entitic mass] 30.0 pg 26.0 - 34.0 pg [facility] MCHC (RBC) [Mass/Vol] 33.1 g/dL 30.5 - 36.0 g/dL [facility] MCV (RBC) [Entitic vol] 90.8 fL 80.0 - 100.0 fL [facility] Monocytes (Bld) [#/Vol] 0.23 10*3/uL <0.87 k/uL [facility] Monocytes/100 WBC (Bld) 5.0 % [facility] Neutrophils (Bld) [#/Vol] 2.46 10*3/uL 1.45 - 7.50 k/uL [facility] Neutrophils/100 WBC (Bld) 54.0 % [facility] Nucleated RBC (Bld) [#/Vol] <0.01 k/uL [facility] Nucleated RBC/100 WBC (Bld) [Ratio] 0.0 /100 WBC [facility] Platelet mean volume (Bld) [Entitic vol] 11.3 fL 9.0 - 12.7 fL [facility] Platelets (Bld) [#/Vol] 292 10*3/uL 150 - 400 k/uL [facility] RBC (Bld) [#/Vol] 4.46 10*6/uL 3.90 - 5.20 m/uL [facility] WBC (Bld) [#/Vol] 4.56 10*3/uL 3.70 - 11.00 k/u L [facility] CK CREATINE KINASEon 023 CK [Catalytic activity/Vol] 44 U/L 42 - 196 U/L [facility] Comprehensive metabolic 2000 panelon 06-12-2022 Albumin [Mass/Vol] 4.3 g/dL 3.9 - 4.9 g/dL [facility] ALP [Catalytic activity/Vol] 64 U/L 34 - 123 U/L [facility] ALT [Catalytic activity/Vol] 20 U/L 7 - 38 U/L [facility] Anion gap [Moles/Vol] 10 mmol/L 9 - 18 mmol/L [facility] AST [Catalytic activity/Vol] 33 U/L 13 - 35 U/L [facility] Bilirubin [Mass/Vol] 0.4 mg/dL 0.2 - 1.3 mg/dL [facility] Calcium [Mass/Vol] 9.3 mg/dL 8.5 - 10.2 mg/dL [facility] Chloride [Moles/Vol] 106 mmol/L High 97 - 105 mmol/L [facility] CO2 [Moles/Vol] 23 mmol/L 22 - 30 mmol/L [facility] Creatinine [Mass/Vol] 0.76 mg/dL 0.58 - 0.96 mg/dL [facility] Estimated Glomerular Filtration Rate 106 mL/min/1.73m >=60 mL/min/1.73m [facility] Glucose [Mass/Vol] 79 mg/dL 74 - 99 mg/dL [facility] Potassium [Moles/Vol] 4.0 mmol/L 3.7 - 5.1 mmol/L [facility] Protein [Mass/Vol] 6.9 g/dL 6.3 - 8.0 g/dL [facility] Sodium [Moles/Vol] 139 mmol/L 136 - 144 mmol/L [facility] Urea nitrogen [Mass/Vol] 9 mg/dL 7 - 21 mg/dL [facility] FERRITIN BLDon 06-12-2022 Ferritin [Mass/Vol] 36.6 ng/mL 14.7 - 205.1 ng/ mL [facility] FOLATE SERUMon 06-12-2022 Folate [Mass/Vol] 6.8 ng/mL >4.7 ng/mL [facility] Iron and Iron binding capaci ty panelon 06-12-2022 Iron [Mass/Vol] 100 ug/dL 41 - 186 ug/dL [facility] Iron binding capacity [Mass/Vol] 332 ug/dL 232 - 386 ug/dL [facility] Iron/TIBC [Molar ratio] 30.1 % 15.0 - 57.0 % [facility] MAGNESIUM BLDon 06-12-2022 Magnesium [Mass/Vol] 2.2 mg/dL 1.7 - 2.3 mg/dL [facility] RHEUMATOID FACTOR BLon 06-12 Rheumatoid factor Qn <16 IU/mL [facility] VITAMIN B12 BLOODon 06-13-19 Cobalamin (Vitamin B12) [Mass/Vol] 854 pg/mL 232 - 1,245 pg/mL [facility] CHEMISTRYOrdered By: SYSTEM SYSTEM on 06-10-2022 Troponin [...] rate/Area] 100 mL/min/1.73 m2 Normal >=59mL/min/1.73 m2 [facility] Chem S Glucose [Mass/Vol] 83 mg/dL Normal [...] 58.5 % Normal 36.0 - 75.0 % [facility] Neutrophils/Leukocy stevan Auto (Bld) [Pure # fraction] 3.4 E9/L Normal 2.0 - 7.5 E9/L [facility] HEMATOLOGYOrdered By: Edilberto Meng on 06-10-2022 Erythrocyte distribution width (RBC) [Ratio] 13.9 % Normal 10.9 - 14.2 % [facility] Hematocrit (Bld) [Volume fraction] 40.9 % Normal 34.0 - 46.0 % [facility] Hemoglobin (Bld) [Mass/Vol] 13.9 g/dL Normal 12.0 - 16.0 gm/dL [facility] MCH (RBC) [Entitic mass] 30.6 pg Normal 27.0 - 34.0 pg [facility] MCHC (RBC) [Mass/Vol] 34.0 g/dL Normal 31.4 - 36.0 gm/dL FT [...] 5.8 E9/L Normal 4.0 - 11.0 E9/L [facility] AMYLASEon 06-09-2022 Amylase [Catalytic activity/Vol] 41 U/L Normal 25-115 [facility] Comment on above: Performed By: #### G RUBIN, LIPID #### [facility] [address] [address] [address] Stephan Tavares CBC AUTO DIFFon 06-09-2022 BASO # 0.0 103/ul Normal 0.0-0.1 [facility] Comment on above: Performed By: #### G RUBIN, LIPID #### [facility] [address] [place] [address] Dr. Stephan Tavares Basophils/100 WBC (Bld) 0.7 % Normal 0.2-2.0 [facility] Comment on above: Performed By: #### G RUBIN, LIPID #### [facility] [address] [place] [address] Dr. Stephan Tavares EO # 0.1 103/ul Normal 0.0-0.7 [facility] Comment on above: Performed By: #### G RUBIN, LIPID #### [facility] [address] [place] [address] Dr. Stephan Tavares Eosinophils/100 WBC (Bld) 1.5 % Normal 0.9-7.0 [facility] Comment on above: Performed By: #### G RUBIN, LIPID #### [facility] [address] [place] [address] Dr. Stephan Tavares Erythrocyte distribution width (RBC) [Ratio] 13.1 % Normal 11.0-15.0 [facility] Comment on above: Performed By: #### G RUBIN, LIPID #### [facility] [address] [place] [address] Dr. Stephan Tavares Hematocrit (Bld) [Volume fraction] 43.2 % Normal 36.0-48.0 [facility] Comment on above: Performed By: #### G RUBIN, LIPID #### [facility] [address] [place] [address] Dr. Stephan Tavares Hemoglobin (Bld) [Mass/Vol] 14.6 g/dL Normal 12.0-16.0 [facility] Comment on above: Performed By: #### G RUBIN, LIPID #### [facility] [address] [place] [address] Dr. Stephan Tavares IG # 0.01 10e3/ul Normal 0.00-0.03 [facility] Comment on above: Performed By: #### G RUBIN, LIPID #### [facility] [address] [place] [address] Dr. Stephan Tavares IG % 0.2 % Normal 0.0-0.5 [facility] Comment on above: Performed By: #### G RUBIN, LIPID #### [facility] [address] [address] [address] Stephan Tavares LYMPH # 2.1 103/ul Normal 1.2-3.8 [facility] Comment on above: Performed By: #### G RUBIN, LIPID #### [facility] [address] [address] [address] Stephan Tavares Lymphocytes/100 WBC (Bld) 39.1 % Normal 20.5-60.0 [facility] Comment on above: Performed By: #### G RUBIN, LIPID #### [facility] [address] [address] [address] Stephan Tavares MANUAL DIFF REQ NO Normal [facility] Comment on above: Performed By: #### G RUBIN, LIPID #### [facility] [address] [address] [address] Stephan Tavares MCH (RBC) [Entitic mass] 30.2 pg Normal 26.7-34.0 [facility] Comment on above: Performed By: #### G RUBIN, LIPID #### [facility] [address] [address] [address] Stephan Tavares MCHC (RBC) [Mass/Vol] 33.8 g/dL Normal 29.9-35.2 [facility] Comment on above: Performed By: #### G RUBIN, LIPID #### [facility] [address] [address] [address] Stephan Tavares MCV (RBC) [Entitic vol] 89.3 fL Normal 81.0-99.0 [facility] Comment on above: Performed By: #### G RUBIN, LIPID #### [facility] [address] [address] [address] Stephan Tavares MONO # 0.3 103/ul Normal 0.3-0.8 [facility] Comment on above: Performed By: #### G RUBIN, LIPID #### [facility] [address] [address] [address] Stephan Tavares Monocytes/100 WBC (Bld) 5.2 % Normal 1.7-12.0 [facility] Comment on above: Performed By: #### G RUBIN, LIPID #### [facility] [address] [place] [address] Dr. Stephan Tavares NEUT # 2.9 103/ul Normal 1.4-6.5 [facility] Comment on above: Performed By: #### G RUBIN, LIPID #### [facility] [address] [place] [address] Dr. Stephan Tavares Neutrophils/100 WBC (Bld) 53.3 % Normal 43.0-75.0 [facility] Comment on above: Performed By: #### G RUBIN, LIPID #### [facility] [address] [place] [address] Dr. Stephan Tavares Platelet mean volume (Bld) [Entitic vol] 10.9 fL Normal 9.5-13.5 [facility] Comment on above: Performed By: #### G RUBIN, LIPID #### [facility] [address] [place] [address] Dr. Stephan Tavares PLT 271 103/ul Normal 150-450 [facility] Comment on above: Performed By: #### G RUBIN, LIPID #### [facility] [address] [place] [address] Dr. Stephan Tavares RBC 4.84 106/ul Normal 4.20-5.40 [facility] Comment on above: Performed By: #### G RUBIN, LIPID #### [facility] [address] [place] [address] Dr. Stephan Tavares WBC 5.4 103/ul Normal 4.0-11.0 [facility] Comment on above: Performed By: #### G RUBIN, LIPID #### [facility] [address] [place] [address] ABD/PELVIS WO CONon [...] ALVERTO PHAM Date: 2022-06-09 16:14 Normal [facility] ER URINE PROFILEon 3 Bilirubin Ql (U) Negative Normal NEGATIVE [facility] Comment on above: Performed By: #### G RUBIN, LIPID #### [facility] [address] [place] [address] Dr. Stephan Tavares Clarity (U) CLEAR Normal CLEAR [facility] Comment on above: Performed By: #### G RUBIN, LIPID #### [facility] [address] [place] [address] Dr. Stephan Tavares Color (U) LT. YELLOW Normal YELLOW [facility] Comment on above: Performed By: #### G RUBIN, LIPID #### [facility] [address] [place] [address] Dr. Stephan Tavares ERUAHD A micrscopic examination will be performed if indicated. Normal [facility] Comment on above: Performed By: #### G RUBIN, LIPID #### [facility] [address] [address] [address] Stephan Tavares Glucose Ql (U) Negative Normal NEGATIVE [facility] Comment on above: Performed By: #### G RUBIN, LIPID #### [facility] [address] [address] [address] Stephan Tavares Hemoglobin Ql (U) Negative Normal NEGATIVE [facility] Comment on above: Performed By: #### G RUBIN, LIPID #### [facility] [address] [address] [address] Stephan Tavares Ketones Ql (U) Negative Normal NEGATIVE [facility] Comment on above: Performed By: #### G RUBIN, LIPID #### [facility] [address] [address] [address] Stephan Tavares LEUKOCYTES Negative Normal NEGATIVE [facility] Comment on above: Performed By: #### G RUBIN, LIPID #### [facility] [address] [place] [address] Dr. Stephan Tavares Nitrite Ql (U) Negative Normal NEGATIVE [facility] Comment on above: Performed By: #### G RUBIN, LIPID #### [facility] [address] [place] [address] Dr. Stephan Tavares pH (U) 7.5 [pH] Normal 5-9 [facility] Comment on above: Performed By: #### G RUBIN, LIPID #### [facility] [address] [place] [address] Dr. Stephan Tavares SPEC GRAVITY 1.015 Normal 1.005-<=1.025 [facility] Comment on above: Performed By: #### G RUBIN, LIPID #### [facility] [address] [place] [address] Dr. Stephan Tavares UA PROTEIN Negative Normal NEGATIVE/ TRACE [facility] Comment on above: Performed By: #### G RUBIN, LIPID #### [facility] [address] [place] [address] Dr. Stephan Tavares UR MICRO IND NOT INDICATED Normal [facility] Comment on above: Performed By: #### G RUBIN, LIPID #### [facility] [address] [place] [address] Dr. Stephan Tavares Urobilinogen Qn (U) 0.2 {Munir'U}/dL Normal 0.2 - 1. 0 [facility] Comment on above: Performed By: #### G RUBIN, LIPID #### [facility] [address] [place] [address] Dr. Stephan Tavares LIPASEon 06-09-2022 Lipase [Catalytic activity/Vol] 120.0 U/L Normal 73.0-393.0 [facility] Comment on above: Performed By: #### G RUBIN, LIPID #### [facility] [address] [place] [address] Dr. Stephan Tavares PROF 14(COMP METB)on 023 Albumin [Mass/Vol] 4.4 g/dL Normal 3.4-5.0 [facility] Comment on above: Performed By: #### G RUBIN, LIPID #### [facility] [address] [place] [address] Dr. Stephan Tavares Albumin/Globulin [Mass ratio] 1.1 {ratio} Normal [facility] Comment on above: Performed By: #### G RUBIN, LIPID #### [facility] [address] [place] [address] Dr. Stephan Tavares ALP [Catalytic activity/Vol] 74 U/L Normal 46-116 [facility] Comment on above: Performed By: #### G RUBIN, LIPID #### [facility] [address] [place] [address] Dr. Stephan Tavares ALT [Catalytic activity/Vol] 40 U/L Normal 14-59 [facility] Comment on above: Performed By: #### G RUBIN, LIPID #### [facility] [address] [place] [address] Dr. Stephan Tavares Anion gap [Moles/Vol] 16.5 mmol/L Normal [facility] Comment on above: Performed By: #### G RUBIN, LIPID #### [facility] [address] [place] [address] Dr. Stephan Tavares AST [Catalytic activity/Vol] 45 U/L Critically high 15-37 [facility] Comment on above: Performed By: #### G RUBIN, LIPID #### [facility] [address] [address] [address] Stephan Tavares Bilirubin [Mass/Vol] 0.5 mg/dL Normal 0.2-1.0 [facility] Comment on above: Performed By: #### G RUBIN, LIPID #### [facility] [address] [address] [address] Stephan Tavares Calcium [Mass/Vol] 9.3 mg/dL Normal 8.5-10.1 [facility] Comment on above: Performed By: #### G RUBIN, LIPID #### [facility] [address] [address] [address] Stephan Tavares Chloride [Moles/Vol] 103 mmol/L Normal 98-107 [facility] Comment on above: Performed By: #### G RUBIN, LIPID #### [facility] [address] [place] [address] Dr. Stephan Tavares CO2 [Moles/Vol] 24.9 mmol/L Normal 21.0-32.0 [facility] Comment on above: Performed By: #### G RUBIN, LIPID #### [facility] [address] [address] [address] Stephan Tavares Creatinine [Mass/Vol] 0.88 mg/dL Normal 0.55-1.02 [facility] Comment on above: Performed By: #### G RUBIN, LIPID #### [facility] [address] [address] [address] Stephan Tavares EGFR-AF GIBRALTARIAN >60 Normal >=60 [facility] Comment on above: Performed By: #### G RUBIN, LIPID #### [facility] [address] [address] [address] Stephan Tavares EGFR-NON AF GIBRALTARIAN >60 Normal >=60 [facility] Comment on above: Performed By: #### G RUBIN, LIPID #### [facility] [address] [address] [address] Stephan Tavares Globulin (S) [Mass/Vol] 3.9 g/dL Normal [facility] Comment on above: Performed By: #### G RUBIN, LIPID #### [facility] [address] [address] [address] Stephan Tavares Glucose [Mass/Vol] 79 mg/dL Normal 74-106 [facility] Comment on above: Performed By: #### G RUBIN, LIPID #### [facility] [address] [address] [address] Stephan Tavares Potassium [Moles/Vol] 3.4 mmol/L Critically low 3.5-5.1 [facility] Comment on above: Performed By: #### G RUBIN, LIPID #### [facility] [address] [address] [address] Stephan Tavares Protein [Mass/Vol] 8.3 g/dL Critically high 6.4-8.[address] [facility] Comment on above: Performed By: #### G RUBIN, LIPID #### [facility] [address] [place] [address] Dr. Stephan Tavares Sodium [Moles/Vol] 141 mmol/L Normal 136-145 [facility] Comment on above: Performed By: #### G RUBIN, LIPID #### [facility] [address] [address] [address] Stephan Tavares Urea nitrogen [Mass/Vol] 10.0 mg/dL Normal 7.0-18.0 [facility] Comment on above: Performed By: #### G RUBIN, LIPID #### [facility] [address] [place] [address] Dr. Stephan Tavares Urea nitrogen/Creatinine [Mass ratio] 11.4 mg/mg Normal [facility] Comment on above: Performed By: #### G RUBIN, LIPID #### [facility] [address] [address] [address] Stephan Tavares US PELVIS TRANSVAGon 023 [...] for patient's symptoms. Electronically authenticated by: ALVERTO KANEJERAMIE Date: 2022-06-09 17:04 Normal [facility] HLA B 27on 05-28-2022 HLA-B27 Negative Normal [facility] Comment on above: Result Comment: HLA- B*27 Negative B27 allele interpretation for all loci based on IMGT/HLA database version 3.44 This test was developed and its performance characteristics determined by [employer]. It has not been cleared or approved by the Food and Drug Administration. [facility] CLIA ID Number [id number] . This test was performed using PCR (Polymerase Chain Reaction)/SSOP (Sequence Specific Oligonucleotide Probes) technique. SBT (Sequence Based Typing) and/or SSP (Sequence Specific Primers) may be used as supplemental methods when necessary. Please contact [facility] Customer Service at if you have any questions. . Director of [facility] Laboratory Dr Tnio Sampson, PhD Performed By: #### B MP, MG #### [facility] [address] [place] [address] Dr. Stephan Tavares LYME DISEASE, WESTERN BLOTon 05-27-2022 IgG P18 Ab. Absent [facility] Comment on above: Performed By: #### B MP, MG #### [facility] [address] [place] [address] Dr. Stephan Tavares IgG P23 Ab. Absent Normal [facility] Comment on above: Performed By: #### B MP, MG #### [facility] [address] [place] [address] Dr. Stephan Tavares IgG P28 Ab. Absent [facility] Comment on above: Performed By: #### B MP, MG #### [facility] [address] [place] [address] Dr. Stephan Tavares IgG P30 Ab. Absent [facility] Comment on above: Performed By: #### B MP, MG #### [facility] [address] [place] [address] Dr. Stephan Tavares IgG P39 Ab. Absent [facility] Comment on above: Performed By: #### B MP, MG #### [facility] [address] [place] [address] Dr. Stephan Tavares IgG P41 Ab. Present Abnormal [facility] Comment on above: Performed By: #### B MP, MG #### [facility] [address] [address] [address] Stephan Tavares IgG P45 Ab. Absent Normal [facility] Comment on above: Performed By: #### B MP, MG #### [facility] [address] [place] [address] Dr. Stephan Tavares IgG P58 Ab. Absent [facility] Comment on above: Performed By: #### B MP, MG #### [facility] [address] [place] [address] Dr. Stephan Tavares IgG P66 Ab. Absent Normal [facility] Comment on above: Performed By: #### B MP, MG #### [facility] [address] [place] [address] Dr. Stephan Tavares IgG P93 Ab. Absent [facility] Comment on above: Performed By: #### B MP, MG #### [facility] [address] [place] [address] Dr. Stephan Tavares IgM P23 Ab. Present Abnormal [facility] Comment on above: Performed By: #### B MP, MG #### [facility] [address] [place] [address] Dr. Stephan Tavares IgM P39 Ab. Absent [facility] Comment on above: Performed By: #### B MP, MG #### [facility] [address] [place] [address] Dr. Stephan Tavares IgM P41 Ab. Present Abnormal [facility] Comment on above: Performed By: #### B MP, MG #### [facility] [address] [place] [address] Dr. Stephan Tavares Lyme IgG WB Interp. Negative Normal [facility] Comment on above: Result Comment: Posi tive: 5 of the following Borrelia-specific bands: 18,23,28,30,39,41,45,58, 66, and 93. Negative: No bands or banding patterns which do not meet positive criteria. Performed By: #### B TOMMIE MG #### [facility] [address] [place] [address] Dr. Stephan Tavares Lyme IgM WB Interp. Positive Abnormal [facility] Comment on above: Result Comment: Note [...] are those recommended by CDC/ASTPHLD. p23=Osp C, u87=teredwkme . Note: Sera from individuals with the following may cross react in the Lyme Line Blot assays: other spirochetal diseases (periodontal disease, leptospirosis, relapsing fever, yaws, and pinta); connective autoimmune (Rheumatoid Arthritis and Systemic Lupus Erythematosus and also individuals with Antinuclear Antibody); other infections ([place] Spotted Fever; Prabhakar-Rangel Virus, and Cytomegalovirus). . . Please Note: Lyme immunoblot alone is not recommended for the diagnosis of Lyme disease. Current guidelines recommend the use of a two-tiered approach to Lyme serology testing to improve the sensitivity and specificity of testing. [facility] offers test code 109621 Lyme Disease Serology with Reflex to aid in the diagnosis of Lyme Disease. Performed By: #### B TOMMIE, MG #### [facility] [address] [place], [place] [address] Dr. Stephan Tavares MISAEL EIA W/REFLEX 9 BIOMARKER Son 05-25-2022 MISAEL Direct Negative Normal Negative [facility] Comment on above: Performed By: #### A NARF9 #### [facility] [address] [place] [address] [id number] [address] Stephan Tavares SLE PROFILE Aon 05-25-2022 Anti-DNA (DS) Ab Qn 2 IU/mL Normal 0-9 [facility] Comment on above: Result Comment: Nega tive <5 Equivocal 5 - 9 Positive >9 Performed By: #### S RONALDO #### [facility] [address] [place] [address] [address] Stephan Tavares Antichromatin Antibodies <0.2 Normal 0.0-0.9 [facility] Comment on above: Performed By: #### S RONALDO #### [facility] [address] [place] [address] [address] Stephan Tavares RA Latex Turbid. <10.0 Normal <14.0 [facility] Comment on above: Performed By: #### S RONALDO #### [facility] [address] [place] [address] [address] Stephan Tavares TRANSMISSION OPERATOR Antibodies 0.3 AI Normal 0.0-0.9 [facility] Comment on above: Performed By: #### S RONALDO #### [facility] [address] [place] [address] Dr. Stephan Tavares Sjogren'nancy Anti-SS-A <0.2 Normal 0.0-0.9 [facility] Comment on above: Performed By: #### S RONALDO #### [facility] [address] [place] [address] [address] Stephan Tavares Sjogren'nancy Anti-SS-B <0.2 Normal 0.0-0.9 [facility] Comment on above: Performed By: #### S RONALDO #### [facility] [address] [address] [address] Stephan Tavares Mc Antibodies <0.2 Normal 0.0-0.9 [facility] Comment on above: Performed By: #### S RONALDO #### [facility] [address] [place] [address] [address] Stephan Tavares CBC AUTO DIFFon 05-22-2022 BASO # 0.0 103/ul Normal 0.0-0.1 [facility] Comment on above: Performed By: #### C BC #### [facility] [address] [place] [address] [address] Stephan Tavares Basophils/100 WBC (Bld) 1.0 % Normal 0.2-2.0 [facility] Comment on above: Performed By: #### C BC #### [facility] [address] [place] [address] Dr. Stephan Tavares EO # 0.1 103/ul Normal 0.0-0.7 [facility] Comment on above: Performed By: #### C BC #### [facility] [address] [place] [address] Dr. Stephan Tavares Eosinophils/100 WBC (Bld) 1.3 % Normal 0.9-7.0 [facility] Comment on above: Performed By: #### C BC #### [facility] [address] [place] [address] Dr. Stephan Tavares Erythrocyte distribution width (RBC) [Ratio] 13.3 % Normal 11.0-15.0 [facility] Comment on above: Performed By: #### C BC #### [facility] [address] [place] [address] Dr. Stephan Tavares Hematocrit (Bld) [Volume fraction] 36.7 % Normal 36.0-48.0 [facility] Comment on above: Performed By: #### C BC #### [facility] [address] [place] [address] Dr. Stephan Tavares Hemoglobin (Bld) [Mass/Vol] 12.6 g/dL Normal 12.0-16.0 [facility] Comment on above: Performed By: #### C BC #### [facility] [address] [place] [address] Dr. Stephan Tavares IG # 0.00 10e3/ul Normal 0.00-0.03 [facility] Comment on above: Performed By: #### C BC #### [facility] [address] [place] [address] Dr. Stephan Tavares IG % 0.0 % Normal 0.0-0.5 [facility] Comment on above: Performed By: #### C BC #### [facility] [address] [place] [address] Dr. Stephan Tavares LYMPH # 1.2 103/ul Normal 1.2-3.8 [facility] Comment on above: Performed By: #### C BC #### [facility] [address] [place] [address] Dr. Stephan Tavares Lymphocytes/100 WBC (Bld) 30.9 % Normal 20.5-60.0 [facility] Comment on above: Performed By: #### C BC #### [facility] [address] [place] [address] Dr. Stephan Tavares MANUAL DIFF REQ NO Normal [facility] Comment on above: Performed By: #### C BC #### [facility] [address] [place] [address] Dr. Stephan Tavares MCH (RBC) [Entitic mass] 30.6 pg Normal 26.7-34.0 [facility] Comment on above: Performed By: #### C BC #### [facility] [address] [place] [address] Dr. Stephan Tavares MCHC (RBC) [Mass/Vol] 34.3 g/dL Normal 29.9-35.2 [facility] Comment on above: Performed By: #### C BC #### [facility] [address] [place] [address] Dr. Stephan Tavares MCV (RBC) [Entitic vol] 89.1 fL Normal 81.0-99.0 [facility] Comment on above: Performed By: #### C BC #### [facility] [address] [place] [address] Dr. Stephan Tavares MONO # 0.2 103/ul Critically low 0.3-0.8 [facility] Comment on above: Performed By: #### C BC #### [facility] [address] [place] [address] Dr. Stephan Tavares Monocytes/100 WBC (Bld) 5.9 % Normal 1.7-12.0 [facility] Comment on above: Performed By: #### C BC #### [facility] [address] [place] [address] Dr. Stephan Tavares NEUT # 2.4 103/ul Normal 1.4-6.5 [facility] Comment on above: Performed By: #### C BC #### [facility] [address] [place] [address] Dr. Stephan Tavares Neutrophils/100 WBC (Bld) 60.9 % Normal 43.0-75.0 [facility] Comment on above: Performed By: #### C BC #### [facility] [address] [place] [address] Dr. Stephan Tavares Platelet mean volume (Bld) [Entitic vol] 10.9 fL Normal 9.5-13.5 [facility] Comment on above: Performed By: #### C BC #### [facility] [address] [place] [address] Dr. Stephan Tavares PLT 250 103/ul Normal 150-450 [facility] Comment on above: Performed By: #### C BC #### [facility] [address] [place] [address] Dr. Stephan Tavares RBC 4.12 106/ul Critically low 4.20-5.40 [facility] Comment on above: Performed By: #### C BC #### [facility] [address] [place] [address] Dr. Stephan Tavares WBC 3.9 103/ul Critically low 4.0-11.0 [facility] Comment on above: Performed By: #### C BC #### [facility] [address] [place] [address] Dr. Stephan Tavares CRPon 05-22-2022 CRP [Mass/Vol] mg/L Normal <=1.0 [facility] Comment on above: Performed By: #### G RUBIN, LIPID #### [facility] [address] [place] [address] Dr. Stephan Tavares SED RATE WESTERGRENon 2022 SED RATE 4 mm/hr Normal <=20 [facility] Comment on above: Performed By: #### S EDR #### [facility] [address] [place] [address] Dr. Stephan Tavares URIC ACID SERUMon 05-22-2022 Urate [Mass/Vol] 4.5 mg/dL Normal 2.6-6.0 [facility] Comment on above: Performed By: #### G RUBIN, LIPID #### [facility] [address] [address] [address] Stephan Tavares EGD - THERAPEUTIC, EUS, OR T UBE INTERVENTIONSon 03-06-2022 [facility] US PELVIS AND TRANSVAGon US PELVIS AND [...] BALDOMERO MARCELO Date: 2022-03-03 16:24 Normal [facility] CBC AUTO DIFFon 02-17-2022 BASO # 0.0 103/ul Normal 0.0-0.1 [facility] Comment on above: Performed By: #### G RUBIN, LIPID #### [facility] [address] [place] [address] Dr. Stephan Tavares Basophils/100 WBC (Bld) 0.8 % Normal 0.2-2.0 [facility] Comment on above: Performed By: #### G RUBIN, LIPID #### [facility] [address] [place] [address] Dr. Stephan Tavares EO # 0.1 103/ul Normal 0.0-0.7 [facility] Comment on above: Performed By: #### G RUBIN, LIPID #### [facility] [address] [place] [address] [address] Stephan Tavares Eosinophils/100 WBC (Bld) 2.0 % Normal 0.9-7.0 [facility] Comment on above: Performed By: #### G RUBIN, LIPID #### [facility] [address] [place] [address] Dr. Stephan Tavares Erythrocyte distribution width (RBC) [Ratio] 13.2 % Normal 11.0-15.0 [facility] Comment on above: Performed By: #### G RUBIN, LIPID #### [facility] [address] [place] [address] [address] Stephan Tavares Hematocrit (Bld) [Volume fraction] 36.2 % Normal 36.0-48.0 [facility] Comment on above: Performed By: #### G RUBIN, LIPID #### [facility] [address] [place] [address] [address] Stephan Tavares Hemoglobin (Bld) [Mass/Vol] 12.6 g/dL Normal 12.0-16.0 [facility] Comment on above: Performed By: #### G RUBIN, LIPID #### [facility] [address] [place] [address] [address] Stehpan Tavares IG # 0.00 10e3/ul Normal 0.00-0.03 [facility] Comment on above: Performed By: #### G RUBIN, LIPID #### [facility] [address] [place] [address] Dr. Stephan Tavares IG % 0.0 % Normal 0.0-0.5 [facility] Comment on above: Performed By: #### G RUBIN, LIPID #### [facility] [address] [place] [address] Dr. Stephan Tavares LYMPH # 2.3 103/ul Normal 1.2-3.8 [facility] Comment on above: Performed By: #### G RUBIN, LIPID #### [facility] [address] [place] [address] Dr. Stephan Tavares Lymphocytes/100 WBC (Bld) 46.3 % Normal 20.5-60.0 [facility] Comment on above: Performed By: #### G RUBIN, LIPID #### [facility] [address] [address] [address] Stephan Tavares MANUAL DIFF REQ NO Normal [facility] Comment on above: Performed By: #### G RUBIN, LIPID #### [facility] [address] [place] [address] Dr. Stephan Tavares MCH (RBC) [Entitic mass] 29.2 pg Normal 26.7-34.0 [facility] Comment on above: Performed By: #### G RUBIN, LIPID #### [facility] [address] [address] [address] Stephan Tavares MCHC (RBC) [Mass/Vol] 34.8 g/dL Normal 29.9-35.2 [facility] Comment on above: Performed By: #### G RUBIN, LIPID #### [facility] [address] [place] [address] Dr. Stephan Tavares MCV (RBC) [Entitic vol] 84.0 fL Normal 81.0-99.0 [facility] Comment on above: Performed By: #### G RUBIN, LIPID #### [facility] [address] [place] [address] Dr. Stephan Tavares MONO # 0.4 103/ul Normal 0.3-0.8 [facility] Comment on above: Performed By: #### G RUBIN, LIPID #### [facility] [address] [place] [address] Dr. Stephan Tavares Monocytes/100 WBC (Bld) 8.7 % Normal 1.7-12.0 [facility] Comment on above: Performed By: #### G RUBIN, LIPID #### [facility] [address] [place] [address] Dr. Stephan Tavares NEUT # 2.1 103/ul Normal 1.4-6.5 [facility] Comment on above: Performed By: #### G RUBIN, LIPID #### [facility] [address] [place] [address] Dr. Stephan Tavares Neutrophils/100 WBC (Bld) 42.2 % Critically low 43.0-75.0 [facility] Comment on above: Performed By: #### G RUBIN, LIPID #### [facility] [address] [place] [address] Dr. Stephan Tavares Platelet mean volume (Bld) [Entitic vol] 11.1 fL Normal 9.5-13.5 [facility] Comment on above: Performed By: #### G RUBIN, LIPID #### [facility] [address] [place] [address] Dr. Stephan Tavares PLT 228 103/ul Normal 150-450 [facility] Comment on above: Performed By: #### G RUBIN, LIPID #### [facility] [address] [place] [address] Dr. Stephan Tavares RBC 4.31 106/ul Normal 4.20-5.40 [facility] Comment on above: Performed By: #### G RUBIN, LIPID #### [facility] [address] [place] [address] Dr. Stephan Tavares WBC 5.1 103/ul Normal 4.0-11.0 [facility] Comment on above: Performed By: #### G RUBIN, LIPID #### [facility] [address] [place] [address] Dr. Stephan Tavares MAGNESIUMon 02-17-2022 Magnesium [Mass/Vol] 1.8 mg/dL Normal 1.8-2.4 [facility] Comment on above: Performed By: #### B MP, MG #### [facility] [address] [place] [address] Dr. Stephan Tavares PROF CHEM 8 (BAS METB)on Anion gap [Moles/Vol] 16.1 mmol/L Normal [facility] Comment on above: Performed By: #### B MP, MG #### [facility] [address] [place] [address] Dr. Stehpan Tavares Calcium [Mass/Vol] 8.7 mg/dL Normal 8.5-10.1 [facility] Comment on above: Performed By: #### B MP, MG #### [facility] [address] [place] [address] Dr. Stephan Tavares Chloride [Moles/Vol] 104 mmol/L Normal 98-107 [facility] Comment on above: Performed By: #### B MP, MG #### [facility] [address] [place] [address] Dr. Stephan Tavares CO2 [Moles/Vol] 22.0 mmol/L Normal 21.0-32.0 [facility] Comment on above: Performed By: #### B MP, MG #### [facility] [address] [place] [address] Dr. Stephan Tavares Creatinine [Mass/Vol] 0.74 mg/dL Normal 0.55-1.02 [facility] Comment on above: Performed By: #### B MP, MG #### [facility] [address] [place] [address] Dr. Stephan Tavares EGFR-AF GIBRALTARIAN >60 Normal >=60 [facility] Comment on above: Performed By: #### B MP, MG #### [facility] [address] [place] [address] Dr. Stephan Tavares EGFR-NON AF GIBRALTARIAN >60 Normal >=60 [facility] Comment on above: Performed By: #### B MP, MG #### [facility] [address] [place] [address] Dr. Stephan Tavares Glucose [Mass/Vol] 88 mg/dL Normal 74-106 [facility] Comment on above: Performed By: #### B MP, MG #### [facility] [address] [place] [address] Dr. Stephan Tavares Potassium [Moles/Vol] 4.1 mmol/L Normal 3.5-5.1 [facility] Comment on above: Result Comment: spec imen hemolysed. result could be spurious. suggest repeat. Performed By: #### B MP, MG #### [facility] [address] [place] [address] Dr. Stehpan Tavares Sodium [Moles/Vol] 138 mmol/L Normal 136-145 [facility] Comment on above: Performed By: #### B MP, MG #### [facility] [address] [place] [address] Dr. Stephan Tavares Urea nitrogen [Mass/Vol] 12.0 mg/dL Normal 7.0-18.0 [facility] Comment on above: Performed By: #### B MP, MG #### [facility] [address] [place] [address] Dr. Stephan Tavares Urea nitrogen/Creatinine [Mass ratio] 16.2 mg/mg Normal [facility] Comment on above: Performed By: #### B MP, MG #### [facility] [address] [place] [address] Dr. Stephan Tavares Basic metabolic 2000 panelon 01-28-2022 Anion gap [Moles/Vol] 10 mmol/L 9 - 18 mmol/L [facility] Calcium [Mass/Vol] 9.3 mg/dL 8.5 - 10.2 mg/dL [facility] Chloride [Moles/Vol] 105 mmol/L 97 - 105 mmol/L [facility] CO2 [Moles/Vol] 22 mmol/L 22 - 30 mmol/L [facility] Creatinine [Mass/Vol] 0.68 mg/dL 0.58 - 0.96 mg/dL [facility] Estimated Glomerular Filtration Rate 119 mL/min/1.73m >=60 mL/min/1.73m [facility] Glucose [Mass/Vol] 77 mg/dL 74 - 99 mg/dL [facility] Potassium [Moles/Vol] 4.3 mmol/L 3.7 - 5.1 mmol/L [facility] Sodium [Moles/Vol] 137 mmol/L 136 - 144 mmol/L [facility] Urea nitrogen [Mass/Vol] 9 mg/dL 7 - 21 mg/dL [facility] CBC panel Auto (Bld)on 01-28 Erythrocyte distribution width (RBC) [Ratio] 13.3 % 11.5 - 15.0 % [facility] Hematocrit (Bld) [Volume fraction] 42.9 % 36.0 - 46.0 % [facility] Hemoglobin (Bld) [Mass/Vol] 14.6 g/dL 11.5 - 15.5 g/dL [facility] MCH (RBC) [Entitic mass] 29.8 pg 26.0 - 34.0 pg [facility] MCHC (RBC) [Mass/Vol] 34.0 g/dL 30.5 - 36.0 g/dL [facility] MCV (RBC) [Entitic vol] 87.6 fL 80.0 - 100.0 fL [facility] Nucleated RBC (Bld) [#/Vol] <0.01 k/uL [facility] Platelet mean volume (Bld) [Entitic vol] 11.4 fL 9.0 - 12.7 fL [facility] Platelets (Bld) [#/Vol] 247 10*3/uL 150 - 400 k/uL [facility] RBC (Bld) [#/Vol] 4.90 10*6/uL 3.90 - 5.20 m/uL [facility] WBC (Bld) [#/Vol] 4.05 10*3/uL 3.70 - 11.00 k/u L [facility] EKGon 01-28-2022 Atrial Rate 61 BPM [facility] Calculated P [place] 76 degrees [facility] Calculated R [place] 73 degrees [facility] Calculated T [place] 57 degrees [facility] P-R Interval 144 ms [facility] QRS Duration 86 ms [facility] QT Interval 424 ms [facility] QTC Calculation (Bazett) 426 ms [facility] Ventricular Rate 61 BPM [facility] TYPE AND SCREEN,30 DAYon ABO O [facility] HIstorical Ab Scr Status Negative [facility] Rh Nom (Bld) Positive [facility] EGD - THERAPEUTIC, EUS, OR T UBE INTERVENTIONSon 12-25-2021 [facility] METANEPHRINES PLASMA FREEon 11-01-2021 Metanephrine, Pl <10.0 Normal 0.0-88.0 [facility] Comment on above: Performed By: #### G RUBIN, LIPID #### [facility] [address] [address] [address] Stephan Tavares Normetanephrine, Pl 19.4 pg/mL Normal 0.0-210.1 [facility] Comment on above: Performed By: #### G RUBIN, LIPID #### [facility] [address] [address] [address] Stephan Tavares CORTISOLon 10-28-2021 Cortisol 4.6 ug/dL Normal [facility] Comment on above: Result Comment: Ewsley isol AM 6.2 - 19.4 Cortisol PM 2.3 - 11.9 Performed By: #### C ORTISO #### [facility] [address] [address] [address] Stephan Tavares CBC AUTO DIFFon 10-27-2021 BASO # 0.0 103/ul Normal 0.0-0.1 [facility] Comment on above: Performed By: #### G RUBIN, LIPID #### [facility] [address] [address] [address] Stephan Tavares Basophils/100 WBC (Bld) 0.5 % Normal 0.2-2.0 [facility] Comment on above: Performed By: #### G RUBIN, LIPID #### [facility] [address] [place] [address] Dr. Stephan Tavares EO # 0.0 103/ul Normal 0.0-0.7 [facility] Comment on above: Performed By: #### G RUBIN, LIPID #### [facility] [address] [place] [address] Dr. Stephan Tavares Eosinophils/100 WBC (Bld) 0.5 % Critically low 0.9-7.0 [facility] Comment on above: Performed By: #### G RUBIN, LIPID #### [facility] [address] [place] [address] Dr. Stephan Tavares Erythrocyte distribution width (RBC) [Ratio] 12.8 % Normal 11.0-15.0 [facility] Comment on above: Performed By: #### G RUBIN, LIPID #### [facility] [address] [place] [address] Dr. Stephan Tavares Hematocrit (Bld) [Volume fraction] 37.5 % Normal 36.0-48.0 [facility] Comment on above: Performed By: #### G RUBIN, LIPID #### [facility] [address] [place] [address] Dr. Stephan Tavares Hemoglobin (Bld) [Mass/Vol] 12.9 g/dL Normal 12.0-16.0 [facility] Comment on above: Performed By: #### G RUBIN, LIPID #### [facility] [address] [place] [address] Dr. Stephan Tavares IG # 0.01 10e3/ul Normal 0.00-0.03 [facility] Comment on above: Performed By: #### G RUBIN, LIPID #### [facility] [address] [place] [address] Dr. Stephan Tavares IG % 0.2 % Normal 0.0-0.5 [facility] Comment on above: Performed By: #### G RUBIN, LIPID #### [facility] [address] [place] [address] Dr. Stephan Tavares LYMPH # 1.9 103/ul Normal 1.2-3.8 [facility] Comment on above: Performed By: #### G RUBIN, LIPID #### [facility] [address] [place] [address] Dr. Stephan Tavares Lymphocytes/100 WBC (Bld) 34.6 % Normal 20.5-60.0 [facility] Comment on above: Performed By: #### G RUBIN, LIPID #### [facility] [address] [place] [address] Dr. Stephan Tavares MANUAL DIFF REQ NO Normal [facility] Comment on above: Performed By: #### G RUBIN, LIPID #### [facility] [address] [place] [address] Dr. Stephan Tavares MCH (RBC) [Entitic mass] 30.3 pg Normal 26.7-34.0 [facility] Comment on above: Performed By: #### G RUBIN, LIPID #### [facility] [address] [place] [address] Dr. Stephan Tavares MCHC (RBC) [Mass/Vol] 34.4 g/dL Normal 29.9-35.2 [facility] Comment on above: Performed By: #### G RUBIN, LIPID #### [facility] [address] [place] [address] Dr. Stephan Tavares MCV (RBC) [Entitic vol] 88.0 fL Normal 81.0-99.0 [facility] Comment on above: Performed By: #### G RUBIN, LIPID #### [facility] [address] [place] [address] Dr. Stephan Tavares MONO # 0.4 103/ul Normal 0.3-0.8 [facility] Comment on above: Performed By: #### G RUBIN, LIPID #### [facility] [address] [place] [address] Dr. Stephan Tavares Monocytes/100 WBC (Bld) 6.6 % Normal 1.7-12.0 [facility] Comment on above: Performed By: #### G RUBIN, LIPID #### [facility] [address] [place] [address] Dr. Stephan Tavares NEUT # 3.2 103/ul Normal 1.4-6.5 [facility] Comment on above: Performed By: #### G RUBIN, LIPID #### [facility] [address] [place] [address] Dr. Stephan Tavares Neutrophils/100 WBC (Bld) 57.6 % Normal 43.0-75.0 [facility] Comment on above: Performed By: #### G RUBIN, LIPID #### [facility] [address] [place] [address] Dr. Stephan Tavares Platelet mean volume (Bld) [Entitic vol] 10.6 fL Normal 9.5-13.5 [facility] Comment on above: Performed By: #### G RUBIN, LIPID #### [facility] [address] [place] [address] Dr. Stephan Tavares PLT 249 103/ul Normal 150-450 [facility] Comment on above: Performed By: #### G RUBIN, LIPID #### [facility] [address] [place] [address] Dr. Stephan Tavares RBC 4.26 106/ul Normal 4.20-5.40 [facility] Comment on above: Performed By: #### G RUBIN, LIPID #### [facility] [address] [place] [address] Dr. Stephan Tavares WBC 5.6 103/ul Normal 4.0-11.0 [facility] Comment on above: Performed By: #### G RUBIN, LIPID #### [facility] [address] [place] [address] Dr. Stephan Tavares FREE T3on 10-27-2021 FREE T3 3.25 pg/mlL Normal 2.18-3.98 [facility] Comment on above: Performed By: #### G RUBIN, LIPID #### [facility] [address] [place] [address] Dr. Stephan Tavares FREE T4on 10-27-2021 Free T4 [Mass/Vol] 1.45 ng/dL Normal 0.76-1.46 [facility] Comment on above: Performed By: #### G RUBIN, LIPID #### [facility] [address] [address] [address] Stephan Tavares PROF CHEM 8 (BAS METB)on Anion gap [Moles/Vol] 13.1 mmol/L Normal [facility] Comment on above: Performed By: #### T SH, FT3, BMP #### [facility] [address] [place] [address] Dr. Stephan Tavares Calcium [Mass/Vol] 8.7 mg/dL Normal 8.5-10.1 [facility] Comment on above: Performed By: #### T SH, FT3, BMP #### [facility] [address] [place] [address] Dr. Stephan Tavares Chloride [Moles/Vol] 104 mmol/L Normal 98-107 [facility] Comment on above: Performed By: #### T SH, FT3, BMP #### [facility] [address] [place] [address] Dr. Stephan Tavares CO2 [Moles/Vol] 25.3 mmol/L Normal 21.0-32.0 [facility] Comment on above: Performed By: #### T SH, FT3, BMP #### [facility] [address] [place] [address] Dr. Stephan Tavares Creatinine [Mass/Vol] 0.69 mg/dL Normal 0.55-1.02 [facility] Comment on above: Performed By: #### T SH, FT3, BMP #### [facility] [address] [place] [address] Dr. Stephan Tavares EGFR-AF GIBRALTARIAN >60 Normal >=60 [facility] Comment on above: Performed By: #### T SH, FT3, BMP #### [facility] [address] [place] [address] Dr. Stephan Tavares EGFR-NON AF GIBRALTARIAN >60 Normal >=60 [facility] Comment on above: Performed By: #### T SH, FT3, BMP #### [facility] [address] [place] [address] Dr. Stephan Tavares Glucose [Mass/Vol] 87 mg/dL Normal 74-106 [facility] Comment on above: Performed By: #### T SH, FT3, BMP #### [facility] [address] [address] [address] Stephan Tavares Potassium [Moles/Vol] 3.4 mmol/L Critically low 3.5-5.1 [facility] Comment on above: Performed By: #### T SH, FT3, BMP #### [facility] [address] [place] [address] Dr. Stephan Tavares Sodium [Moles/Vol] 139 mmol/L Normal 136-145 [facility] Comment on above: Performed By: #### T SH, FT3, BMP #### [facility] [address] [place] [address] Dr. Stephan Tavares Urea nitrogen [Mass/Vol] 9.0 mg/dL Normal 7.0-18.0 [facility] Comment on above: Performed By: #### T SH, FT3, BMP #### [facility] [address] [place] [address] Dr. Stephan Tavares Urea nitrogen/Creatinine [Mass ratio] 13.0 mg/mg Normal [facility] Comment on above: Performed By: #### T SH, FT3, BMP #### [facility] [address] [place] [address] Dr. Stephan Tavares TSHon 10-27-2021 TSH Qn m[IU]/L Critically low 0.358-3.740 [facility] Comment on above: Performed By: #### G RUBIN, LIPID #### [facility] [address] [place] [address] SINUSES WO CONon [...] by: ALVERTO PHAM Date: 2021-10-06 06:19 Normal [facility] Dental Nerve Blockon 022 Pablo Atwood DO 08/30/2021 4:20 AM Dental Nerve Block Date/Time: 08/30/2021 4:19 AM Performed by: Pablo Atwood DO Authorized by: Pablo Atwood DO Consent: Consent obtained: Verbal Consent given by: Patient Risks, benefits, and alternatives were discussed: yes Freeman protocol: Patient identity confirmed: Verbally with patient Indications: Indications: dental pain Location: Block type: Posterior superior alveolar Laterality: Left Procedure details: Syringe type: Controlled syringe Needle gauge: 27 G Anesthetic injected: Bupivacaine 0.5% WITH epi Post-procedure details: Outcome: Anesthesia achieved Procedure completion: Tolerated well, no immediate complications [facility] [employer] Work Phone: [facility] [employer] Phone: GLUCOSE BLOODon 08-21-2021 Glucose [Mass/Vol] 79 mg/dL Normal 74-106 [facility] Comment on above: Performed By: #### G RUBIN, LIPID #### [facility] [address] [place] [address] Dr. Stephan Tavares LIPID PROFILEon 08-21-2021 CHOL-HDL RATIO NORM SEE BELOW Normal [facility] Comment on above: Result Comment: 3.3 - 4.4 LOW RISK 4.4 - 7.1 AVERAGE RISK 7.1 - 11.0 MODERATE RISK >11.0 HIGH RISK Performed By: #### G RUBIN, LIPID #### [facility] [address] [address] [address] Stephan Tavares Cholesterol [Mass/Vol] 163 mg/dL Normal <=200 [facility] Comment on above: Performed By: #### G RUBIN, LIPID #### [facility] [address] [address] [address] Stephan Tavares Cholesterol in HDL [Mass/Vol] 71 mg/dL Critically high 40-60 [facility] Comment on above: Performed By: #### G RUBIN, LIPID #### [facility] [address] [address] [address] Stephan Tavares Cholesterol in LDL [Mass/Vol] 67.8 mg/dL Normal [facility] Comment on above: Performed By: #### G RUBIN, LIPID #### [facility] [address] [address] [address] Stephan Tavares Cholesterol.total/C holesterol in HDL [Mass ratio] 2.3 {ratio} Normal [facility] Comment on above: Performed By: #### G RUBIN, LIPID #### [facility] [address] [address] [address] Stephan Tavares HDL NORMAL > or = 60 mg/dl - LOW CARDIOVASCULAR RISK <40 mg/dl - HIGH CARDIOVASCULAR RISK Normal [facility] Comment on above: Performed By: #### G RUBIN, LIPID #### [facility] [address] [address] [address] Stephan Tavares LDL CALC NORMAL SEE BELOW Normal [facility] Comment on above: Result Comment: <100 mg/dl OPTIMAL 100 - 129 mg/dl NEAR OR ABOVE OPTIMAL 130 - 159 mg/dl BORDERLINE HIGH 160 - 189 mg/dl HIGH >190 mg/dl VERY HIGH Performed By: #### G RUBIN, LIPID #### [facility] [address] [address] [address] Stephan Tavares Triglyceride [Mass/Vol] 121 mg/dL Normal <=150 [facility] Comment on above: Performed By: #### G RUBIN, LIPID #### [facility] [address] [place], [place] [address] Dr. Stephan Tavares VLDL CALC 24.2 mg/dL Normal [facility] Comment on above: Performed By: #### G RUBIN, LIPID #### [facility] [address] [place], [place] [address] Dr. Stephan Tavares US SINGLE QUAD RT [...] ALVERTO PHAM Date: 2021-08-21 17:24 Normal [facility] XR SINUSES 3 VIEWS OR [...] ALVERTO PHAM Date: 2021-08-20 13:05 Normal [facility] Glucose - FINGER STICKon Glucose [Mass/Vol] 84 mg/dL [email or web address] Other VAGINITIS/VAGINOSIS DNA PROB Ryder 08-01-2021 Alea species Positive Abnormal Negative [facility] Comment on above: Performed By: #### G RUBIN, LIPID #### [facility] [address] [address] [address] Stephan Tavares Gardnerella vaginalis Negative Normal Negative [facility] Comment on above: Performed By: #### G RUBIN, LIPID #### [facility] [address] [address] [address] tSephan Tavares Trichomonas vaginalis Negative Normal Negative [facility] Comment on above: Performed By: #### G RUBIN, LIPID #### [facility] [address] [address] [address] Stephan Tavares APTTon 07-27-2021 aPTT Coag (Bld) [Time] 30.9 s [facility] Comment on above: IV Heparin Therapy Range: 62.0-94.0 CBC with Auto Differentialon 07-27-2021 Absolute Eos # 0.06 [facility] Absolute Immature Granulocyte <0.03 [facility] Absolute Lymph # 1.49 [facility] Absolute Sunflower # 0.27 [facility] Basophils (Bld) [#/Vol] 0.04 10*3/uL [facility] Basophils/100 WBC (Bld) 1 % 0 - 2 % [facility] Eosinophils/100 WBC (Bld) 1 % 1 - 4 % [facility] Hematocrit (Bld) [Volume fraction] 38.8 % 36.3 - 47.1 % [facility] Hemoglobin (Bld) [Mass/Vol] 12.7 g/dL 11.9 - 15.1 g/dL [facility] Immature granulocytes/100 WBC (Bld) 0 % 0 [facility] Interpretation and review of laboratory results Abnormal [facility] Lymphocytes/100 WBC (Bld) 36 % 24 - 43 % [facility] MCH (RBC) [Entitic mass] 28.9 pg 25.2 - 33.5 pg [facility] MCHC (RBC) [Mass/Vol] 32.7 g/dL 28.4 - 34.8 g/dL [facility] MCV (RBC) [Entitic vol] 88.4 fL 82.6 - 102.9 fL [facility] Monocytes/100 WBC (Bld) 6 % 3 - 12 % [facility] NRBC Automated 0.0 0.0 per 100 WBC [facility] Platelet distribution width (Bld) [Ratio] 14.5 % High 11.8 - 14.4 % [facility] Platelet mean volume (Bld) [Entitic vol] 10.8 fL 8.1 - 13.5 fL [facility] Platelets (Bld) [#/Vol] 251 10*3/uL [facility] RBC (Bld) [#/Vol] 4.39 10*6/uL 3.95 - 5.11 m/uL [facility] Segmented neutrophils/100 WBC (Bld) 56 % 36 - 65 % [facility] Segs Absolute 2.33 [facility] WBC (Bld) [#/Vol] 4.2 10*3/uL [facility] CT ABDOMEN PELVIS W IV CONTR AST [...] unremarkable. There is no acute osseous abnormality. [facility]PN RIS Devon Joseph MD - 07/27/2021 EXAMINATION: [...] IMPRESSION: No acute abdominal or pelvic abnormality. [email or web address] Phone: Radiology Study observation (narrative) [email or web address] Phone: CT ABDOMEN PELVIS W IV CONTR AST Additional Contrast? NoneOrdered By: Devon Moura on 07-27-2021 [email or web address] Phone: Comprehensive Metabolic Pane l w/ Reflex to MGon 07-27-2021 Albumin [Mass/Vol] 4.7 g/dL 3.5 - 5.2 g/dL [facility] Albumin/Globulin [Mass ratio] 1.8 {ratio} [facility] ALP (Bld) [Catalytic activity/Vol] 62 U/L 35 - 104 U/L [facility] ALT [Catalytic activity/Vol] 14 U/L 5 - 33 U/L [facility] Anion gap [Moles/Vol] 11 mmol/L 9 - 17 mmol/L [facility] AST [Catalytic activity/Vol] 18 U/L <32 [facility] Bilirubin [Mass/Vol] 0.52 mg/dL 0.3 - 1.2 mg/dL [facility] Calcium [Mass/Vol] 9.5 mg/dL 8.6 - 10.4 mg/dL [facility] Chloride [Moles/Vol] 101 mmol/L 98 - 107 mmol/L [facility] CO2 [Moles/Vol] 25 mmol/L 20 - 31 mmol/L [facility] Creatinine [Mass/Vol] 0.76 mg/dL 0.50 - 0.90 mg/dL [facility] Free PSA/Total PSA [Mass fraction] 7.3 g/dL 6.4 - 8.3 g/dL [facility] GFR >60 >60 mL/min [facility] GFR Non- >60 >60 mL/min [facility] Glucose [Mass/Vol] 86 mg/dL 70 - 99 mg/dL [facility] Interpretation and review of laboratory results Abnormal [facility] Potassium [Moles/Vol] 4.0 mmol/L 3.7 - 5.3 mmol/L [facility] Sodium [Moles/Vol] 137 mmol/L 135 - 144 mmol/L [facility] Urea nitrogen (BldV) [Mass/Vol] 16 mg/dL 6 - 20 mg/dL [facility] Urea nitrogen/Creatinine (Bld) [Mass ratio] 21 High [facility] Laboratory - Chemistry and C hemistry - challengeon 07-27-2021 GFR/1.73 sq M.predicted MDRD (S/P/Bld) [Vol rate/Area] [facility] Comment on above: Average GFR for 30-3 9 years old: 107 mL/min/1.73sq m Chronic Kidney Disease: <60 mL/min/1.73sq m Kidney failure: <15 mL/min/1.73sq m eGFR calculated using average adult body mass. Additional eGFR calculator available at: http://www.DearLocal/multiple_crcl_2012.htm Stage 1: Some kidney damage normal GFR Stage 2: Mild kidney damage GFR 60-89 Stage 3: Moderate kidney damage GFR 30-59 Stage 4: Severe kidney damage GFR 15-29 Stage 5: Severe kidney damage GFR <15 ESRD - chronic treatment by dialysis or transplant Lactic Acidon 07-27-2021 Lactate [Moles/Vol] 1 mmol/L 0.5 - 2.2 mmol/L [facility] Lipaseon 07-27-2021 Lipase [Catalytic activity/Vol] 49 U/L 13 - 60 U/L [facility] Microscopic Urinalysison - [facility] Epithelial Cells UA 0 TO 2 [facility] RBC, UA 0 TO 2 [facility] WBC, UA 0 TO 2 [facility] No Panel Informationon 07-27 [facility] Protime-INRon 07-27-2021 INR Coag (Bld) [Relative time] 1.1 {INR} [facility] Comment on above: Non-therapeutic Range: INR = 0.9-1.2 Therapeutic Range: Moderate Anticoagulant Intensity: INR = 2.0-3.0 High Anticoagulant Intensity: INR = 2.5-3.5 PT Coag (PPP) [Time] 14.2 s [facility] Urinalysis with Reflex to Cu ltureon 07-27-2021 Bilirubin Urine Negative NEGATIVE [facility] [employer] Color, UA Yellow Yellow [facility] Glucose, Ur Negative NEGATIVE [facility] Ketones Ql (U) Negative NEGATIVE [facility] Leukocyte esterase Test strip Ql (U) Negative NEGATIVE [facility] Nitrite, Urine Negative NEGATIVE [facility] pH, UA 7.5 [facility] Protein, UA Negative NEGATIVE [facility] Specific [place], UA 1.010 [facility] Turbidity UA Clear Clear [facility] Urine Hgb Negative NEGATIVE [facility] Urobilinogen, Urine Normal Normal [facility] XR CHEST PORTABLEon 07-28-19 No acute process. [facility] EXAMINATION: ONE XRAY VIEW OF [...] The osseous structures are without acute process. [facility] Goldie Grande MD - 07/27/2021 [...] without acute process. IMPRESSION: No acute process. [facility] [employer] Work Phone: Radiology Study observation (narrative) [facility] [employer] Work Phone: XR CHEST PORTABLEOrdered By: Goldie Grande on 07-27-2021 [facility] [employer] Work Phone: XR HIP GENERAL 3V PELV/AP/LA T RIGHTon 06-18-2021 [facility] XR chest 2V*on 03-31-2021 XR chest 2V* [facility] [employer] Other XR chest 2V* [facility] [employer] Other XR chest 2V* [address] [facility] [employer] Other XR chest 2V* BrendaRUT [address] [place] [employer] Other XR chest 2V* XRay Report [email or web address] Other XR chest 2V* Signed [email or web address] Other XR chest 2V* Patient: Abbey Garcia MR#: [id number] [employer] Other XR chest 2V* : 1990 Acct:[id number] [email or web address] Other XR chest 2V* Age/Sex: 30 / F ADM Date: 03/31/21 [email or web address] Other XR chest 2V* Loc: XDCLY Room: Type: [facility] [email or web address] Other XR chest 2V* Attending Dr: Shanna June [facility] [email or web address] Other XR chest 2V* [facility]ing [facility] [email or web address] Other XR chest 2V* Date of Service: 03/31/21 [email or web address] Other XR chest 2V* XR/XR chest 2V*: SOB (shortness of breath) [email or web address] Other XR chest 2V* Copies to: SHANNA JUNE [facility] [email or web address] Other XR chest 2V* PA AND LATERAL CHEST: [email or web address] Other XR chest 2V* CLINICAL HISTORY: Wheezing and shortness of breath [email or web address] Other XR chest 2V* COMPARISON: 03/05/2020 [email or web address] Other XR chest 2V* There is no focal parenchymal consolidation, effusion or pneumothorax. The cardiac, hilar and [email or web address] Other XR chest 2V* mediastinal silhouettes are within normal limits. There is no vascular congestion. The [email or web address] Other XR chest 2V* visualized bony thorax is intact. [email or web address] Other XR chest 2V* XR/XR chest 2V* [email or web address] Other XR chest 2V* IMPRESSION: [email or web address] Other XR chest 2V* NO ACUTE CARDIOPULMONARY ABNORMALITY. [email or web address] Other XR chest 2V* Impression dictated by: Maricruz Hutchinson M.D.03/31/2021 11:32 AM [email or web address] Other XR chest 2V* Dictation Location: RADIO-PC-10 [email or web address] Other XR chest 2V* Transcribed By: SULEMA 03/31/21 1132 [email or web address] Other XR chest 2V* Dictated By: Maricruz Hutchinson MD 03/31/21 [facility] [email or web address] Other XR chest 2V* Signed By: [email or web address] Other XR chest 2V* 03/31/21 1132 [employer] Other Urinalysis - AUTOMATEDon Appearance (U) clear [employer] Other Bilirubin Ql (U) Negative [employer] Other Color (U) yellow [email or web address] Other Glucose Ql (U) Negative [employer] Other Hemoglobin Ql (U) Negative [employer] Other Ketones Ql (U) Negative [employer] Other Leukocyte esterase Test strip Ql (U) Negative [email or web address] Other Nitrite Ql (U) Negative [employer] Other pH (U) 7.0 [pH] [email or web address] Other Protein Ql (U) Negative [employer] Other Specific gravity (U) [Rel density] 1.015 [email or web address] Other Urobilinogen (U) [Mass/Vol] 0.2 mg/dL [email or web address] Other XR FINGER RIGHT (MIN 2 VIEWS )Ordered By: Vicky Olmedo on 12-14-2020 No acute osseous abnormality. [employer] Phone: EXAMINATION: THREE XRAY VIEWS OF THE RIGHT FINGERS 12/14/2020 3:26 pm COMPARISON: None. HISTORY: ORDERING SYSTEM PROVIDED HISTORY: shut right thumb in car door TECHNOLOGIST PROVIDED HISTORY: shut right thumb in car door FINDINGS: There is no evidence of acute fracture. There is normal alignment. No acute joint abnormality. No focal osseous lesion. No focal soft tissue abnormality. [employer] Phone: Yusuf, pn Incoming Radiant Results From [employer] - 12/14/2020 3:33 PM EDT EXAMINATION: THREE [...] tissue abnormality. IMPRESSION: No acute osseous abnormality. [employer] Phone: [employer] Phone: CBC, EDIF, PLATELETOrdered B y: Juanito Laird on 07-02-2020 ABSOLUTE BASOPHIL COUNT 0.0 10*3/uL 0.0 - 0.2 10*3/uL [facility] Basophils/100 WBC (Bld) 0.6 % 0.0 - 2.0 % [facility] Differential cell count method Nom (Bld) AUTO DIFF % [facility] Eosinophils (Bld) [#/Vol] 0.10 10*3/uL 0.0 - 0.7 10*3/uL [facility] Eosinophils/100 WBC (Bld) 1.3 % 0.0 - 11.0 % [facility] Erythrocyte distribution width (RBC) [Ratio] 14.1 % 11.5 - 14.5 % [facility] Hematocrit (Bld) [Volume fraction] 36.2 % 36.0 - 48.0 % [facility] Hemoglobin (Bld) [Mass/Vol] 12.1 g/dL [facility] Lymphocytes (Bld) [#/Vol] 1.70 10*3/uL 1.2 - 3.4 10*3/uL [facility] Lymphocytes/100 WBC (Bld) 23.4 % 20.0 - 55.0 % [facility] MCH (RBC) [Entitic mass] 28.1 pg 26.0 - 35.0 PG [facility] MCHC (RBC) [Mass/Vol] 33.4 g/dL [facility] MCV (RBC) [Entitic vol] 84.1 fL [facility] Monocytes (Bld) [#/Vol] 0.5 10*3/uL 0.0 - 0.7 10*3/uL [facility] Monocytes/100 WBC (Bld) 6.4 % 0.0 - 10.0 % [facility] Neutrophils (Bld) [#/Vol] 5.0 10*3/uL 1.4 - 6.5 10*3/uL [facility] Neutrophils/100 WBC (Bld) 68.3 % 37.0 - 75.0 % [facility] Platelet mean volume (Bld) [Entitic vol] 8.9 fL [facility] Platelets (Bld) [#/Vol] 295 10*3/uL 130.0 - 400.0 10*3/uL [facility] RBC (Bld) [#/Vol] 4.31 10*6/uL 4.0 - 5.4 10*6/u L [facility] WBC (Bld) [#/Vol] 7.3 10*3/uL 3.6 - 11.0 10*3/u L [facility] COMPREHENSIVE METABOLIC PANE LOrdered By: Juanito Laird on 07-02-2020 Albumin [Mass/Vol] 4.1 G/dl 3.5 - 5.0 G/dl [facility] Albumin/Globulin [Mass ratio] 1.3 {ratio} [facility] ALP [Catalytic activity/Vol] 52 U/L [facility] ALT [Catalytic activity/Vol] 16 U/L [facility] AST [Catalytic activity/Vol] 29 U/L [facility] Bilirubin [Mass/Vol] 0.5 mg/dL [facility] Calcium [Mass/Vol] 9.2 mg/dL [facility] Chloride [Moles/Vol] 102 mmol/L [facility] CO2 [Moles/Vol] 22 mmol/L [facility] Creatinine [Mass/Vol] 0.59 mg/dL [facility] GFR COMMENT Average GFR for 30-39 years old = 109. [facility] Comment on above: Chronic Kidney disea se, GFR = <60. Kidney failure, GFR = <15. The GFR estimate is not adjusted for extreme body surface area or acute process, nor has it been validated for women or ethnic groups other than and . GFR/1.73 sq M.predicted among blacks MDRD (S/P/Bld) [Vol rate/Area] mL/min/{1.73_m2} ml/min/1.73sq.m [facility] GFR/1.73 sq M.predicted among non-blacks MDRD (S/P/Bld) [Vol rate/Area] mL/min/{1.73_m2} ml/min/1.73sq.m [facility] Glucose post fast [Mass/Vol] 84 mg/dL [facility] Comment on above: NORMAL <100 mg/dL PREDIABETES 101-126 mg/dL DIABETES 126 mg/dL or higher Interpretation and review of laboratory results Abnormal [facility] Potassium [Moles/Vol] 4.1 mmol/L [facility] Protein [Mass/Vol] 7.3 g/dL [facility] Sodium [Moles/Vol] 134 mmol/L Low [employer] [facility] Urea nitrogen [Mass/Vol] 15 mg/dL [facility] ABDOMEN/PELVIS WITHOUT CO NTRASTOrdered By: Juanito Laird on 07-02-2020 IMPRESSION: CT abdomen and CT pelvis studies demonstrate findings compatible with hepatic cysts as described, similar to prior study. Finding is compatible with complex right adnexal cyst as noted. Correlate for mild gastroenteritis. [facility] EXAMINATION: CT ABDOMEN/PELVIS WITHOUT CONTRAST HISTORY: Abdominal [...] bowel content. Bony structures are grossly intact. [facility] User, Interfaces - 07/02/2020 2:22 PM EDT [...] cyst as noted. Correlate for mild gastroenteritis. [facility] HCG ( test) Ql (U)O rdered By: Vaughn Ceja on 07-02-2020 [facility] HCG QUALITATIVE, URINEOrdere d By: Vaughn Ceja on 07-02-2020 HCG ( test) Ql (U) Negative NEGATIVE [facility] LACTATE, BLOODOrdered By: Catherine Laird on 07-02-2020 Lactate [Moles/Vol] 1.0 mmol/L [facility] LIPASEOrdered By: Juanito rosen on 07-02-2020 Lipase [Catalytic activity/Vol] 32 U/L 23 - 300 U/L [facility] No Panel InformationOrdered By: Juanito Laird on 07-02-2020 [facility] PROTIME-INROrdered By: Gautam Laird on 07-02-2020 INR Coag (PPP) [Relative time] 0.95 {INR} [facility] Comment on above: 2.0-3.0 THERAPEUTIC RANGE 2.5-3.5 MECHANICAL VALVE RANGE PT Coag (PPP) [Time] 12.9 s [facility] TYPE AND SCREEN - POSSIBLE T RANSFUSIONOrdered By: Juanito Laird on 07-02-2020 ABO and Rh group Nom (Bld ) Positive [facility] ARM BAND NUMBER [id number] [facility] Blood group antibody screen Ql Negative [facility] EXPIRATION DATE 07/05/2020,2355 [facility] URINALYSIS, MACROOrdered By: Vaughn Ceja on 07-02-2020 Bilirubin Ql (U) Negative NEGATIVE [facility] Clarity (U) SLIGHTLY CLOUDY Abnormal CLEAR [facility] Color (U) PINK Abnormal YELLOW [facility] Glucose Test strip (U) [Mass/Vol] Negative NEGATIVE mg/dl [facility] Hemoglobin Ql (U) LARGE Abnormal NEGATIVE [facility] Interpretation and review of laboratory results Abnormal [facility] Ketones (U) [Mass/Vol] Negative NEGATIVE mg/dl [facility] Leukocyte esterase Test strip Ql (U) TRACE Abnormal NEGATIVE [facility] Nitrite Ql (U) Negative NEGATIVE [facility] pH (U) 5.5 [pH] [facility] Protein Ql (U) 100 mg/dl Abnormal NEGATIVE [facility] Specific gravity (U) [Rel density] <1.005 Low [facility] Urobilinogen (U) [Mass/Vol] 0.2 mg/dL [facility] URINE MICROSCOPICOrdered By: Vaughn Ceja on 07-02-2020 Bacteria LM.HPF (Urine sed) [#/Area] TRACE Abnormal NEGATIVE [facility] Casts LM.LPF (Urine sed) [#/Area] NONE NONE /LPF [facility] Crystals LM Nom (Urine sed) NONE NONE [facility] Epithelial cells LM Ql (Urine sed) 10 TO 20 /HPF [facility] Interpretation and review of laboratory results Abnormal [facility] Mucus Ql (Urine sed) Negative NEGATIVE [facility] RBC LM.HPF (Urine sed) [#/Area] TOO NUMEROUS TO COUNT Abnormal NEGATIVE /HPF [facility] Urine sediment comments LM John (Urine sed) POSSIBLY CONTAMINATED SPECIMEN, CULTURE MUST BE ORDERED SEPARATELY IF DEEMED NECESSARY. [facility] WBC LM.HPF (Urine sed) [#/Area] 1 TO 5 NEGATIVE /HPF [facility] US PELVIC WITH TRANSVAGINAL WITH DOPPLEROrdered By: Juanito Laird on 07-02-2020 IMPRESSION: 5.5 cm septated right ovarian cyst No evidence of right ovarian torsion Nonvisualization of the left ovary 4.1 cm myometrial masses, leiomyoma suspected [facility] EXAM: US PELVIC WITH TRANSVAGINAL [...] to patient body habitus and bowel gas [facility] User, Interfaces - 07/02/2020 4:10 PM EDT [...] ovary 4.1 cm myometrial masses, leiomyoma suspected [facility] CBC, EDIF, PLATELETon 2019 ABSOLUTE BASOPHIL COUNT 0.0 10*3/uL 0 - 0.2 10*3/uL [facility] Basophils/100 WBC (Bld) 0.6 % 0 - 2 % [facility] Differential cell count method Nom (Bld) AUTO DIFF % [facility] Eosinophils (Bld) [#/Vol] 0.10 10*3/uL 0 - 0.7 10*3/uL [facility] Eosinophils/100 WBC (Bld) 2.4 % 0 - 11 % [facility] Erythrocyte distribution width (RBC) [Ratio] 15.2 % High 11.5 - 14.5 % [facility] Hematocrit (Bld) [Volume fraction] 39.4 % 36 - 48 % [facility] Hemoglobin (Bld) [Mass/Vol] 12.7 g/dL [facility] Interpretation and review of laboratory results Abnormal [facility] Lymphocytes (Bld) [#/Vol] 1.50 10*3/uL 1.2 - 3.4 10*3/uL [facility] Lymphocytes/100 WBC (Bld) 25.8 % 20 - 55 % [facility] MCH (RBC) [Entitic mass] 28.3 pg 26 - 35 PG [facility] MCHC (RBC) [Mass/Vol] 32.3 g/dL [facility] MCV (RBC) [Entitic vol] 87.6 fL [facility] Monocytes (Bld) [#/Vol] 0.3 10*3/uL 0 - 0.7 10*3/uL [facility] Monocytes/100 WBC (Bld) 5.6 % 0 - 10 % [facility] Neutrophils (Bld) [#/Vol] 3.7 10*3/uL 1.4 - 6.5 10*3/uL [facility] Neutrophils/100 WBC (Bld) 65.6 % 37 - 75 % [facility] Platelet mean volume (Bld) [Entitic vol] 9.2 fL [facility] Platelets (Bld) [#/Vol] 277 10*3/uL 130 - 400 10*3/uL [facility] RBC (Bld) [#/Vol] 4.50 10*6/uL 4 - 5.4 10*6/uL [facility] WBC (Bld) [#/Vol] 5.7 10*3/uL 3.6 - 11 10*3/uL [facility] CHEM 7 (LYTES,BUN,CREA,GLUC) on 01-30-2020 Chloride [Moles/Vol] 106 mmol/L [facility] CO2 [Moles/Vol] 20 mmol/L Low [facility] Creatinine [Mass/Vol] 0.67 mg/dL [facility] GFR/1.73 sq M predicted among blacks MDRD (S/P/Bld) [Vol rate/Area] mL/min/{1.73_m2} ml/min/1.73sq.m [facility] GFR/1.73 sq M predicted among non-blacks MDRD (S/P/Bld) [Vol rate/Area] mL/min/{1.73_m2} ml/min/1.73sq.m [facility] GFR/1.73 sq M predicted among non-blacks MDRD (S/P/Bld) [Vol rate/Area] Average GFR for 30-39 years old = 109. [facility] Comment on above: Chronic Kidney disea se, GFR = <60. Kidney failure, GFR = <15. The GFR estimate is not adjusted for extreme body surface area or acute process, nor has it been validated for women or ethnic groups other than and . Glucose post fast [Mass/Vol] 78 mg/dL [facility] Comment on above: NORMAL <100 mg/dL PREDIABETES 101-126 mg/dL DIABETES 126 mg/dL or higher Interpretation and review of laboratory results Abnormal [facility] Potassium [Moles/Vol] 3.8 mmol/L [facility] Sodium [Moles/Vol] 138 mmol/L [facility] Urea nitrogen [Mass/Vol] 8 mg/dL [facility] CT ABDOMEN/PELVIS WITH CONTR Daljit 01-30-2020 [...] unchanged. 4. Prior cholecystectomy and appendectomy. 2 [facility] EXAMINATION: CT ABDOMEN/PELVIS WITH CONTRAST HISTORY: Right [...] osseous lesions. No compression fracture is identified. [facility] IMPRESSION: 1. Scattered fluid throughout nondilated small bowel may correlate with enteritis or mild ileus pattern. No bowel obstruction. 2. Left ovarian cyst measures 4.7 cm. Pelvic ultrasound could be considered, if clinical symptoms warrant. 3. Hepatic cysts, unchanged. 4. Prior cholecystectomy and appendectomy. 2 [facility] HCG QUALITATIVE, URINEon HCG ( test) Ql (U) Negative NEGATIVE [facility] HEPATIC FUNCTION PANELon Albumin [Mass/Vol] 4.6 g/dL [facility] ALP [Catalytic activity/Vol] 52 U/L [facility] ALT [Catalytic activity/Vol] 18 U/L [facility] AST [Catalytic activity/Vol] 31 U/L [facility] Bilirubin [Mass/Vol] 0.5 mg/dL [facility] Bilirubin.direct [Mass/Vol] 0.0 mg/dL [facility] Protein [Mass/Vol] 7.7 g/dL [facility] LIPASEon 01-30-2020 Lipase [Catalytic activity/Vol] 33 U/L 23 - 300 U/L [facility] URINALYSIS, MACROon 01-30-20 20 Bilirubin Ql (U) Negative NEGATIVE [facility] Clarity (U) CLEAR CLEAR [facility] Color (U) YELLOW YELLOW [facility] Glucose Test strip (U) [Mass/Vol] Negative NEGATIVE mg/dl [facility] Hemoglobin Ql (U) Negative NEGATIVE [facility] Interpretation and review of laboratory results Abnormal [facility] Ketones (U) [Mass/Vol] Negative NEGATIVE mg/dl [facility] Leukocyte esterase Test strip Ql (U) Negative NEGATIVE [facility] Nitrite Ql (U) Negative NEGATIVE [facility] pH (U) 7.5 [pH] High [facility] Protein Ql (U) Negative NEGATIVE mg/dl [facility] Specific gravity (U) [Rel density] 1.015 [facility] Urobilinogen (U) [Mass/Vol] 0.2 [facility] Vital Signs Date Time Vital Sign Value Performing Clinician Facility 08-26-2023 16:30-0400 Diastolic blood pressure 53 mm[Hg] Britt Cross MD Work Phone: [facility] 08-26-2023 16:30-0400 Heart rate 62 /min Britt Cross MD Work Phone: [facility] 08-26-2023 16:30-0400 Respiratory rate 16 /min Britt Cross MD Work Phone: [facility] 08-26-2023 16:30-0400 SaO2% (BldA) [Mass fraction] 98 % Britt Cross MD Work Phone: [facility] 08-26-2023 16:30-0400 Systolic blood pressure 104 mm[Hg] Britt Cross MD Work Phone: [facility] 08-26-2023 15:19-0400 Body height 167.6 cm Britt Cross MD Work Phone: [facility] 08-26-2023 15:19-0400 Body mass index (BMI) [Ratio] 28.25 kg/m2 Britt Cross MD Work Phone: [facility] 08-26-2023 15:19-0400 Body temperature 98.1 [degF] Britt Cross MD Work Phone: [facility] 08-26-2023 15:19-0400 Body weight 79.38 kg Britt Cross MD Work Phone: [facility] 08-21-2023 12:56-0400 Diastolic blood pressure 55 mm[Hg] CURTAIN INSPECTOR-C Jaquan Cristhian Work Phone: [facility] 08-21-2023 12:56-0400 Heart rate 72 /min [employer]TAIN INSPECTOR[employer]C Jaquan Cristhian Work Phone: [facility] 08-21-2023 12:56-0400 Respiratory rate 18 /min [employer]TAIN INSPECTOR[employer] Jaquan Cristhian Work Phone: [facility] 08-21-2023 12:56-0400 SaO2% (BldA) [Mass fraction] 98 % [employer]TAIN INSPECTOR-C Jaquan Cristhian Work Phone: [facility] 08-21-2023 12:56-0400 Systolic blood pressure 103 mm[Hg] CURTAIN INSPECTOR-C Jaquan Cristhian Work Phone: [facility] 08-21-2023 08:54-0400 Body height 168.91 cm CURTAIN INSPECTOR-C Jaquan Cristhian Work Phone: [facility] 08-21-2023 08:54-0400 Body weight 79 kg CURTAIN INSPECTOR-C Jaquan Cristhian Work Phone: [facility] 08-21-2023 08:48-0400 Body temperature 97.9 [degF] CURTAIN INSPECTOR-C Jaquan Cristhian Work Phone: [facility] 08-14-2023 18:07-0400 Diastolic blood pressure 74 mm[Hg] CURTAIN INSPECTOR-C Jaquan Cristhian Work Phone: [facility] 08-14-2023 18:07-0400 Heart rate 66 /min CURTAIN INSPECTOR-C Jaquan Cristhian Work Phone: [facility] 08-14-2023 18:07-0400 Respiratory rate 18 /min CURTAIN INSPECTOR-C Jaquan Cristhian Work Phone: [facility] 08-14-2023 18:07-0400 SaO2% (BldA) [Mass fraction] 99 % [employer]TAIN INSPECTOR-C Jaquan Cristhian Work Phone: [facility] 08-14-2023 18:07-0400 Systolic blood pressure 110 mm[Hg] CURTAIN INSPECTOR-C Jaquan Cristhian Work Phone: [facility] 08-14-2023 16:17-0400 Body height 167.64 cm CURTAIN INSPECTOR-C Jaquan Cristhian Work Phone: [facility] 08-14-2023 16:17-0400 Body temperature 97.5 [degF] CURTAIN INSPECTOR-C Jaquan Cristhian Work Phone: [facility] 08-14-2023 16:17-0400 Body weight 78.92 kg CURTAIN INSPECTOR-C Jaquan Cristhian Work Phone: [facility] 08-09-2023 13:51-0400 Diastolic blood pressure 79 mm[Hg] Vic Ramos MD Work Phone: [facility] 08-09-2023 13:51-0400 Heart rate 76 /min Vic Ramos MD Work Phone: [facility] 08-09-2023 13:51-0400 Systolic blood pressure 113 mm[Hg] Vic Ramos MD Work Phone: [facility] 08-04-2023 08:23-0400 Body mass index (BMI) [Ratio] 29.21 kg/m2 Boogie Murguia MD Work Phone: [facility] 08-04-2023 08:23-0400 Body weight 82.1 kg Boogie Murguia MD Work Phone: [facility] 07-31-2023 13:21-0400 Diastolic blood pressure 55 mm[Hg] CURTAIN INSPECTOR-C Jaquan Cristhian Work Phone: [facility] 07-31-2023 13:21-0400 Heart rate 64 /min CURTAIN INSPECTOR-C Jaquan Cristhian Work Phone: [facility] 07-31-2023 13:21-0400 Respiratory rate 18 /min CURTAIN INSPECTOR-C Jaquan Cristhian Work Phone: [facility] 07-31-2023 13:21-0400 SaO2% (BldA) [Mass fraction] 97 % CURTAIN INSPECTOR-C Jaquan Cristhian Work Phone: [facility] 07-31-2023 13:21-0400 Systolic blood pressure 104 mm[Hg] CURTAIN INSPECTOR-C Jaquan Cristhian Work Phone: [facility] 07-31-2023 10:21-0400 Body height 168.91 cm CURTAIN INSPECTOR-C Jaquan Cristhian Work Phone: [facility] 07-31-2023 10:21-0400 Body temperature 98.2 [degF] CURTAIN INSPECTOR-C Jaquan Cristhian Work Phone: [facility] 07-31-2023 10:21-0400 Body weight 79 kg CURTAIN INSPECTOR-C Jaquan Cristhian Work Phone: [facility] 07-17-2023 21:45-0400 Body temperature 98.2 [degF] CURTAIN INSPECTOR-C Jaquan Rcisthian Work Phone: [facility] 07-17-2023 21:45-0400 Diastolic blood pressure 73 mm[Hg] CURTAIN INSPECTOR-C Jaquan Cristhian Work Phone: [facility] 07-17-2023 21:45-0400 Heart rate 66 /min CURTAIN INSPECTOR-C Jaquan Cristhian Work Phone: [facility] 07-17-2023 21:45-0400 Respiratory rate 16 /min CURTAIN INSPECTOR-C Jaquan Cristhian Work Phone: [facility] 07-17-2023 21:45-0400 SaO2% (BldA) [Mass fraction] 97 % CURTAIN INSPECTOR-C Jaquan Cristhian Work Phone: [facility] 07-17-2023 21:45-0400 Systolic blood pressure 108 mm[Hg] CURTAIN INSPECTOR-C Jaquan Cristhian Work Phone: [facility] 07-17-2023 12:39-0400 Body height 167.64 cm CURTAIN INSPECTOR-C Jaquan Cristhian Work Phone: [facility] 07-17-2023 08:45-0400 Body weight 79.5 kg CURTAIN INSPECTOR-C Jaquan Cristhian Work Phone: [facility] 07-17-2023 07:30-0400 Diastolic blood pressure 53 mm[Hg] CURTAIN INSPECTOR-C Jaquan Cristhian Work Phone: [facility] 07-17-2023 07:30-0400 Heart rate 62 /min CURTAIN INSPECTOR-C Jaquan Cristhian Work Phone: [facility] 07-17-2023 07:30-0400 Respiratory rate 16 /min CURTAIN INSPECTOR-C Jaquan Cristhian Work Phone: [facility] 07-17-2023 07:30-0400 SaO2% (BldA) [Mass fraction] 96 % CURTAIN INSPECTOR-C Jaquan Cristhian Work Phone: [facility] 07-17-2023 07:30-0400 Systolic blood pressure 106 mm[Hg] CURTAIN INSPECTOR-C Jaquan Crsithian Work Phone: [facility] 07-16-2023 14:44-0400 Body height 167.64 cm CURTAIN INSPECTOR-C Jaquan Cristhian Work Phone: [facility] 07-16-2023 14:44-0400 Body temperature 97.6 [degF] CURTAIN INSPECTOR-C Jaquan Cristhian Work Phone: [facility] 07-16-2023 14:44-0400 Body weight 79.95 kg CURTAIN INSPECTOR-C Jaquan Cristhian Work Phone: [facility] 07-03-2023 07:00-0400 Body temperature 98.6 [degF] David Wodrich DO Work Phone: 0(495)787-770067 [place] [address] 07-03-2023 07:00-0400 Diastolic blood pressure 57 mm[Hg] David Wodrich DO Work Phone: 1(255)408-483967 [place] [address] 07-03-2023 07:00-0400 Heart rate 105 /min David Wodrich DO Work Phone: 7(958)379-376767 [place] [address] 07-03-2023 07:00-0400 Respiratory rate 18 /min David Wodrich DO Work Phone: 5(811)778-479167 [place] [address] 07-03-2023 07:00-0400 SaO2% (BldA) [Mass fraction] 100 % David Wodrich DO Work Phone: 0(910)318-892467 [place] [address] 07-03-2023 07:00-0400 Systolic blood pressure 99 mm[Hg] David Wodrich DO Work Phone: 4(440)245-672767 [place] [address] 06-29-2023 18:16-0400 Body height 167.6 cm David Wodrich DO Work Phone: 3(312)272-117067 [place] [address] 06-29-2023 18:16-0400 Body mass index (BMI) [Ratio] 27.12 kg/m2 David Wodrich DO Work Phone: 0(633)053-326567 [place] [address] 06-29-2023 18:16-0400 Body weight 76.2 kg David Wodrich DO Work Phone: 9(882)264-205667 [place] [address] 06-22-2023 11:14-0400 Body height 167.6 cm Sherry Magaña MD Work Phone: [facility] 06-22-2023 11:14-0400 Body mass index (BMI) [Ratio] 27.12 kg/m2 Sherry Magaña MD Work Phone: [facility] 06-22-2023 11:14-0400 Body weight 76.2 kg Sherry Magaña MD Work Phone: [facility] 06-18-2023 09:35-0400 Body height 167.6 cm Breanna Stern APRN.BLASTING MACHINE OPERATOR Work Phone: [facility] 06-18-2023 09:35-0400 Body mass index (BMI) [Ratio] 27.29 kg/m2 Breanna Stern APRN.BLASTING MACHINE OPERATOR Work Phone: [facility] 06-18-2023 09:35-0400 Body temperature 98.01 [degF] Breanna Stern APRN.BLASTING MACHINE OPERATOR Work Phone: [facility] 06-18-2023 09:35-0400 Body weight 76.66 kg Breanna Stern APRN.BLASTING MACHINE OPERATOR Work Phone: [facility] 06-18-2023 09:35-0400 Diastolic blood pressure 82 mm[Hg] Breanna Stern APRN.BLASTING MACHINE OPERATOR Work Phone: [facility] 06-18-2023 09:35-0400 Heart rate 78 /min Breanna Stern APRN.BLASTING MACHINE OPERATOR Work Phone: [facility] 06-18-2023 09:35-0400 SaO2% (BldA) [Mass fraction] 100 % Breanna Stern APRN.BLASTING MACHINE OPERATOR Work Phone: [facility] 06-18-2023 09:35-0400 Systolic blood pressure 142 mm[Hg] Breanna Stern APRN.BLASTING MACHINE OPERATOR Work Phone: [facility] 05-31-2023 00:53-0400 Diastolic blood pressure 82 mm[Hg] CURTAIN INSPECTOR-C Jaquan Cristhian Work Phone: [facility] 05-31-2023 00:53-0400 Heart rate 51 /min CURTAIN INSPECTOR-C Jaquan Cristhian Work Phone: [facility] 05-31-2023 00:53-0400 Respiratory rate 18 /min CURTAIN INSPECTOR-C Jaquan Cristhian Work Phone: [facility] 05-31-2023 00:53-0400 SaO2% (BldA) [Mass fraction] 91 % CURTAIN INSPECTOR-C Jaquan Cristhian Work Phone: [facility] 05-31-2023 00:53-0400 Systolic blood pressure 142 mm[Hg] CURTAIN INSPECTOR-C Jaquan Cristhian Work Phone: [facility] 05-30-2023 15:25-0400 Body height 167.64 cm CURTAIN INSPECTOR-C Jaquan Cristhian Work Phone: [facility] 05-30-2023 15:25-0400 Body temperature 97.7 [degF] CURTAIN INSPECTOR-C Jaquan Cristhian Work Phone: [facility] 05-30-2023 15:25-0400 Body weight 76.65 kg CURTAIN INSPECTOR-C Jaquan Cristhian Work Phone: [facility] 05-17-2023 16:03-0400 Diastolic blood pressure 82 mm[Hg] [facility] 05-17-2023 16:03-0400 Heart rate 72 /min [facility] 05-17-2023 16:03-0400 Mean blood pressure 95 mm[Hg] [facility] 05-17-2023 16:03-0400 Respiratory rate 17 /min [facility] 05-17-2023 16:03-0400 SaO2% (BldA) [Mass fraction] 100 % [facility] 05-17-2023 16:03-0400 Systolic blood pressure 120 mm[Hg] [facility] 05-17-2023 15:30-0400 Diastolic blood pressure 86 mm[Hg] [facility] 05-17-2023 15:30-0400 Heart rate 71 /min [facility] 05-17-2023 15:30-0400 Mean blood pressure 103 mm[Hg] [facility] 05-17-2023 15:30-0400 Respiratory rate 16 /min [facility] 05-17-2023 15:30-0400 SaO2% (BldA) [Mass fraction] 100 % [facility] 05-17-2023 15:30-0400 Systolic blood pressure 136 mm[Hg] [facility] 05-17-2023 15:00-0400 Diastolic blood pressure 78 mm[Hg] [facility] 05-17-2023 15:00-0400 Heart rate 70 /min [facility] 05-17-2023 15:00-0400 Mean blood pressure 97 mm[Hg] [facility] 05-17-2023 15:00-0400 Respiratory rate 15 /min [facility] 05-17-2023 14:16-0400 Body temperature 97.7 [degF] [facility] 05-17-2023 14:16-0400 Heart rate 74 /min [facility] 05-14-2023 13:06-0400 Hourly Rounding Moncho Amador [facility] 05-14-2023 13:06-0400 Promise to Return Moncho Amador [facility] 05-14-2023 12:06-0400 Hourly Rounding Moncho Amador [facility] 05-14-2023 12:06-0400 Promise to Return Moncho Amador [facility] 05-14-2023 11:32-0400 Hourly Rounding Moncho Paster [facility] 05-14-2023 11:32-0400 Promise to Return Moncho Paster [facility] 05-14-2023 10:08-0400 Heart rate 57 /min Moncho Paster [facility] 05-14-2023 10:08-0400 SaO2% (BldA) [Mass fraction] 100 % Moncho Paster [facility] 05-14-2023 10:08-0400 Diastolic blood pressure 80 mm[Hg] Moncho Paster [facility] 05-14-2023 10:08-0400 Mean blood pressure 93 mm[Hg] Moncho Paster [facility] 05-14-2023 10:08-0400 Systolic blood pressure 119 mm[Hg] Moncho Paster [facility] 05-14-2023 10:08-0400 Body temperature 97.34 [degF] Moncho Paster [facility] 05-14-2023 07:32-0400 Heart rate 57 /min Moncho Paster [facility] 05-14-2023 07:32-0400 SaO2% (BldA) [Mass fraction] 100 % Moncho Paster [facility] 05-14-2023 07:32-0400 Diastolic blood pressure 66 mm[Hg] Moncho Paster [facility] 05-14-2023 07:32-0400 Mean blood pressure 77 mm[Hg] Moncho Paster [facility] 05-14-2023 07:32-0400 Systolic blood pressure 100 mm[Hg] Moncho Paster [facility] 05-14-2023 07:31-0400 Body temperature 97.34 [degF] Moncho Paster [facility] 05-14-2023 05:00-0400 Blood Pressure Location Moncho Paster [facility] 05-14-2023 05:00-0400 Diastolic blood pressure 77 mm[Hg] Moncho Paster [facility] 05-14-2023 05:00-0400 Mean blood pressure 90 mm[Hg] Moncho Paster [facility] 05-14-2023 05:00-0400 Systolic blood pressure 116 mm[Hg] Moncho Paster [facility] 05-13-2023 23:38-0400 Heart rate 53 /min Moncho Paster [facility] 05-13-2023 23:38-0400 SaO2% (BldA) [Mass fraction] 100 % Moncho Paster [facility] 05-13-2023 23:38-0400 Respiratory rate 16 /min Moncho Paster [facility] 05-13-2023 23:37-0400 Mean blood pressure 92 mm[Hg] Moncho Paster [facility] 05-13-2023 23:00-0400 Blood Pressure Location Moncho Paster [facility] 05-13-2023 23:00-0400 Body temperature 97.34 [degF] Moncho Paster [facility] 05-13-2023 19:33-0400 Body temperature 97.52 [degF] Moncho Paster [facility] 05-13-2023 16:00-0400 Body temperature 98.06 [degF] Moncho Paster [facility] 05-13-2023 11:00-0400 Body temperature 98.24 [degF] Moncho Paster [facility] 05-12-2023 16:17-0400 Blood Pressure Location Moncho Paster [facility] 05-12-2023 16:00-0400 Respiratory rate 20 /min Moncho Paster [facility] 05-12-2023 15:55-0400 Mean blood pressure 86 mm[Hg] Moncho Paster [facility] 05-12-2023 15:55-0400 Respiratory rate 14 /min Moncho Paster [facility] 05-12-2023 15:50-0400 Mean blood pressure 87 mm[Hg] Moncho Paster [facility] 05-12-2023 15:50-0400 Respiratory rate 18 /min Moncho Paster [facility] 05-12-2023 15:36-0400 Body temperature 97.88 [degF] Moncho Paster [facility] 05-12-2023 15:30-0400 Respiratory rate 12 /min Moncho Paster [facility] 05-12-2023 15:25-0400 Respiratory rate 12 /min Moncho Paster [facility] 05-12-2023 13:19-0400 Heart rate 61 /min Moncho Paster [facility] 05-12-2023 09:32-0400 Heart rate 77 /min Moncho Paster [facility] 05-11-2023 16:43-0400 Diastolic blood pressure 67 mm[Hg] Mateusz Garcia [facility] 05-11-2023 16:43-0400 Heart rate 75 /min Mateusz Jose [facility] 05-11-2023 16:43-0400 Mean blood pressure 83 mm[Hg] Mateusz Jose [facility] 05-11-2023 16:43-0400 Respiratory rate 18 /min Mateusz Jose [facility] 05-11-2023 16:43-0400 SaO2% (BldA) [Mass fraction] 100 % Mateusz Jose [facility] 05-11-2023 16:43-0400 Systolic blood pressure 115 mm[Hg] Mateusz Jose [facility] 05-11-2023 15:00-0400 Diastolic blood pressure 79 mm[Hg] Mateusz Jose [facility] 05-11-2023 15:00-0400 Heart rate 65 /min Mateusz Jose [facility] 05-11-2023 15:00-0400 Mean blood pressure 92 mm[Hg] Mateusz Jose [facility] 05-11-2023 15:00-0400 Systolic blood pressure 118 mm[Hg] Mateusz Jose [facility] 05-11-2023 14:30-0400 Heart rate 69 /min Mateusz Jose [facility] 05-11-2023 14:30-0400 Respiratory rate 18 /min Mateusz Jose [facility] 05-11-2023 14:30-0400 SaO2% (BldA) [Mass fraction] 100 % Mateusz Jose [facility] 05-11-2023 12:00-0400 Body temperature 97.7 [degF] Mateusz Jose [facility] 05-11-2023 12:00-0400 Diastolic blood pressure 83 mm[Hg] Mateusz Jose [facility] 05-11-2023 12:00-0400 Heart rate 73 /min Mateusz Jose [facility] 05-11-2023 12:00-0400 Systolic blood pressure 147 mm[Hg] Mateusz Jose [facility] 05-09-2023 16:20-0400 Diastolic blood pressure 67 mm[Hg] Mateusz Jose [facility] 05-09-2023 16:20-0400 Heart rate 75 /min Mateusz Jose [facility] 05-09-2023 16:20-0400 Mean blood pressure 82 mm[Hg] Mateusz Jose [facility] 05-09-2023 16:20-0400 Respiratory rate 16 /min Mateusz Jose [facility] 05-09-2023 16:20-0400 SaO2% (BldA) [Mass fraction] 97 % Mateusz Jose [facility] 05-09-2023 16:20-0400 Systolic blood pressure 112 mm[Hg] Mateusz Jose [facility] 05-09-2023 15:40-0400 Diastolic blood pressure 69 mm[Hg] Mateusz Jose [facility] 05-09-2023 15:40-0400 Heart rate 69 /min Mateusz Jose [facility] 05-09-2023 15:40-0400 Mean blood pressure 84 mm[Hg] Mateusz Jose [facility] 05-09-2023 15:40-0400 Respiratory rate 18 /min Mateusz Jose [facility] 05-09-2023 15:40-0400 SaO2% (BldA) [Mass fraction] 100 % Mateusz Jose [facility] 05-09-2023 15:40-0400 Systolic blood pressure 113 mm[Hg] Mateusz Jose [facility] 05-09-2023 14:00-0400 Diastolic blood pressure 80 mm[Hg] Mateusz Jose [facility] 05-09-2023 14:00-0400 Heart rate 78 /min Mateusz Jose [facility] 05-09-2023 14:00-0400 Mean blood pressure 96 mm[Hg] Mateusz Jose [facility] 05-09-2023 14:00-0400 Respiratory rate 19 /min Mateusz Jose [facility] 05-09-2023 14:00-0400 Systolic blood pressure 129 mm[Hg] Mateusz Jose [facility] 05-09-2023 11:47-0400 Body temperature 97.7 [degF] Mateusz Jose [facility] 05-09-2023 11:47-0400 Heart rate 107 /min Mateusz Jose [facility] 05-06-2023 21:11-0400 Diastolic blood pressure 61 mm[Hg] Mateusz Jose [facility] 05-06-2023 21:11-0400 Heart rate 55 /min Mateusz Jose [facility] 05-06-2023 21:11-0400 Mean blood pressure 74 mm[Hg] Mateusz Jose [facility] 05-06-2023 21:11-0400 Respiratory rate 16 /min Mateusz Jose [facility] 05-06-2023 21:11-0400 SaO2% (BldA) [Mass fraction] 100 % Mateusz Jose [facility] 05-06-2023 21:11-0400 Systolic blood pressure 100 mm[Hg] Mateusz Jose [facility] 05-06-2023 20:20-0400 Diastolic blood pressure 73 mm[Hg] Mateusz Jose [facility] 05-06-2023 20:20-0400 Heart rate 53 /min Mateusz Jose [facility] 05-06-2023 20:20-0400 Mean blood pressure 89 mm[Hg] Mateusz Jose [facility] 05-06-2023 20:20-0400 Respiratory rate 14 /min Mateusz Jose [facility] 05-06-2023 20:20-0400 SaO2% (BldA) [Mass fraction] 100 % Mateusz Jose [facility] 05-06-2023 20:20-0400 Systolic blood pressure 122 mm[Hg] Mateusz Jose [facility] 05-06-2023 19:30-0400 Diastolic blood pressure 87 mm[Hg] Mateusz Jose [facility] 05-06-2023 19:30-0400 Heart rate 72 /min Mateusz Jose [facility] 05-06-2023 19:30-0400 Mean blood pressure 105 mm[Hg] Mateusz Jose [facility] 05-06-2023 19:30-0400 Respiratory rate 16 /min Mateusz Jose [facility] 05-06-2023 19:30-0400 SaO2% (BldA) [Mass fraction] 100 % Mateuszdeo Garcia [facility] 05-06-2023 19:30-0400 Systolic blood pressure 141 mm[Hg] Mateusz Garcia [facility] 05-06-2023 15:45-0400 Body temperature 98.78 [degF] Mateusz Garcia [facility] 05-06-2023 15:45-0400 Heart rate 66 /min Mateusz Garcia [facility] 05-06-2023 15:45-0400 Respiratory rate 18 /min Mateusz Garcia [facility] 04-28-2023 09:49-0400 Body height 167.6 cm Kasie Avalos MD Work Phone: [facility] 04-28-2023 09:49-0400 Body temperature 96.6 [degF] Kasie Avalos MD Work Phone: [facility] 04-28-2023 09:49-0400 Body weight 79.38 kg Kasie Avalos MD Work Phone: [facility] 04-28-2023 09:49-0400 Diastolic blood pressure 75 mm[Hg] Kasie Avalos MD Work Phone: [facility] 04-28-2023 09:49-0400 Heart rate 80 /min Kasie Avalos MD Work Phone: [facility] 04-28-2023 09:49-0400 SaO2% (BldA) [Mass fraction] 100 % Kasie Avalos MD Work Phone: [facility] 04-28-2023 09:49-0400 Systolic blood pressure 106 mm[Hg] Kasie Avalos MD Work Phone: [facility] 04-06-2023 14:00-0500 Diastolic blood pressure 59 mm[Hg] CURTAIN INSPECTOR-C Jaquan Cristhian Work Phone: [facility] 04-06-2023 14:00-0500 Heart rate 59 /min [employer]TAIN INS[employer]OR[employer] Jaquan Cristhian Work Phone: [facility] 04-06-2023 14:00-0500 Respiratory rate 16 /min [employer]TAIN INS[employer]OR[employer] Jaquan Cristhian Work Phone: [facility] 04-06-2023 14:00-0500 SaO2% (BldA) [Mass fraction] 98 % CURTAIN INSPECTOR-C Jauqan Cristhian Work Phone: [facility] 04-06-2023 14:00-0500 Systolic blood pressure 113 mm[Hg] CURTAIN INSPECTOR-C Jaquan Cristhian Work Phone: [facility] 04-06-2023 09:47-0500 Body height 167.64 cm CURTAIN INSPECTOR-C Jaquan Cristhian Work Phone: [facility] 04-06-2023 09:47-0500 Body temperature 96.7 [degF] CURTAIN INSPECTOR-C Jaquan Cristhian Work Phone: [facility] 04-06-2023 09:47-0500 Body weight 81.1 kg CURTAIN INSPECTOR-C Jaquan Cristhian Work Phone: [facility] 04-02-2023 17:00-0500 Diastolic blood pressure 63 mm[Hg] [facility] 04-02-2023 17:00-0500 Heart rate 75 /min [facility] 04-02-2023 17:00-0500 Mean blood pressure 80 mm[Hg] [facility] 04-02-2023 17:00-0500 SaO2% (BldA) [Mass fraction] 99 % [facility] 04-02-2023 17:00-0500 Systolic blood pressure 113 mm[Hg] [facility] 04-02-2023 16:00-0500 Diastolic blood pressure 71 mm[Hg] [facility] 04-02-2023 16:00-0500 Heart rate 71 /min [facility] 04-02-2023 16:00-0500 Mean blood pressure 88 mm[Hg] [facility] 04-02-2023 16:00-0500 Respiratory rate 14 /min [facility] 04-02-2023 16:00-0500 SaO2% (BldA) [Mass fraction] 100 % [facility] 04-02-2023 16:00-0500 Systolic blood pressure 123 mm[Hg] [facility] 04-02-2023 15:00-0500 Diastolic blood pressure 55 mm[Hg] [facility] 04-02-2023 15:00-0500 Heart rate 76 /min [facility] 04-02-2023 15:00-0500 Mean blood pressure 73 mm[Hg] [facility] 04-02-2023 15:00-0500 Respiratory rate 17 /min [facility] 04-02-2023 15:00-0500 Systolic blood pressure 109 mm[Hg] [facility] 04-02-2023 10:54-0500 Body temperature 98.6 [degF] [facility] 04-02-2023 10:54-0500 Heart rate 73 /min [facility] 04-02-2023 10:54-0500 Respiratory rate 16 /min [facility] 03-20-2023 08:41-0500 Body temperature 97.5 [degF] Melisa Barker MD Work Phone: [facility] 03-20-2023 08:41-0500 Diastolic blood pressure 74 mm[Hg] Melisa Barker MD Work Phone: [facility] 03-20-2023 08:41-0500 Heart rate 62 /min Melisa Barker MD Work Phone: [facility] 03-20-2023 08:41-0500 Respiratory rate 18 /min Melisa Barker MD Work Phone: [facility] 03-20-2023 08:41-0500 SaO2% (BldA) [Mass fraction] 98 % Melisa Barker MD Work Phone: [facility] 03-20-2023 08:41-0500 Systolic blood pressure 131 mm[Hg] Melisa Barker MD Work Phone: [facility] 03-16-2023 13:47-0500 Body height 167.6 cm Melisa Barker MD Work Phone: [facility] 03-16-2023 13:47-0500 Body mass index (BMI) [Ratio] 32.99 kg/m2 Melisa Barker MD Work Phone: [facility] 03-16-2023 13:47-0500 Body weight 92.7 kg Melisa Barker MD Work Phone: [facility] 03-16-2023 12:00-0500 Diastolic blood pressure 70 mm[Hg] Earnest Johnie [facility] 03-16-2023 12:00-0500 Heart rate 69 /min Earnest Johnie [facility] 03-16-2023 12:00-0500 Mean blood pressure 84 mm[Hg] Earnest Johnie [facility] 03-16-2023 12:00-0500 Systolic blood pressure 113 mm[Hg] Earnest Johnie [facility] 03-16-2023 11:30-0500 Diastolic blood pressure 86 mm[Hg] Earnest Johnie [facility] 03-16-2023 11:30-0500 Heart rate 61 /min Earnest Johnie [facility] 03-16-2023 11:30-0500 Mean blood pressure 102 mm[Hg] Earnest Blancoe [facility] 03-16-2023 11:30-0500 Respiratory rate 16 /min Earnest Blancoe [facility] 03-16-2023 11:30-0500 Systolic blood pressure 133 mm[Hg] Earnest Johnie [facility] 03-16-2023 11:07-0500 Diastolic blood pressure 83 mm[Hg] Earnest Blancoe [facility] 03-16-2023 11:07-0500 Heart rate 63 /min Earnest Blancoe [facility] 03-16-2023 11:07-0500 Mean blood pressure 94 mm[Hg] Earnest Johnie [facility] 03-16-2023 11:07-0500 SaO2% (BldA) [Mass fraction] 100 % Earnest Johnie [facility] 03-16-2023 11:07-0500 Systolic blood pressure 116 mm[Hg] Earnest Blancoe [facility] 03-16-2023 10:21-0500 Body temperature 97.52 [degF] Earnest Johnie [facility] 03-16-2023 10:21-0500 Heart rate 70 /min Earnest Johnie [facility] 03-16-2023 10:21-0500 SaO2% (BldA) [Mass fraction] 100 % Earnest Johnie [facility] 03-15-2023 18:00-0500 Diastolic blood pressure 75 mm[Hg] Earnest Johnie [facility] 03-15-2023 18:00-0500 Heart rate 68 /min Earnest Johnie [facility] 03-15-2023 18:00-0500 Mean blood pressure 94 mm[Hg] Earnest Johnie [facility] 03-15-2023 18:00-0500 Respiratory rate 16 /min Earnest Johnie [facility] 03-15-2023 18:00-0500 SaO2% (BldA) [Mass fraction] 98 % Earnest Johnie [facility] 03-15-2023 18:00-0500 Systolic blood pressure 131 mm[Hg] Earnest Johnie [facility] 03-15-2023 17:19-0500 Diastolic blood pressure 66 mm[Hg] Earnest Johnie [facility] 03-15-2023 17:19-0500 Heart rate 56 /min Earnest Johnie [facility] 03-15-2023 17:19-0500 Mean blood pressure 79 mm[Hg] Earnest Johnie [facility] 03-15-2023 17:19-0500 Respiratory rate 18 /min Earnest Johnie [facility] 03-15-2023 17:19-0500 SaO2% (BldA) [Mass fraction] 95 % Earnest Johnie [facility] 03-15-2023 17:19-0500 Systolic blood pressure 104 mm[Hg] Earnest Johnie [facility] 03-15-2023 16:23-0500 Diastolic blood pressure 72 mm[Hg] Earnest Johnie [facility] 03-15-2023 16:23-0500 Heart rate 58 /min Earnest Johnie [facility] 03-15-2023 16:23-0500 Mean blood pressure 90 mm[Hg] Earnest Jett [facility] 03-15-2023 16:23-0500 Respiratory rate 20 /min Earnest Jett [facility] 03-15-2023 16:23-0500 SaO2% (BldA) [Mass fraction] 99 % Earnest Jett [facility] 03-15-2023 16:23-0500 Systolic blood pressure 126 mm[Hg] Earnest Jett [facility] 03-15-2023 11:41-0500 Body temperature 97.88 [degF] Earnest Jett [facility] 03-15-2023 11:41-0500 Heart rate 71 /min Earnest Jett [facility] 03-15-2023 11:41-0500 Respiratory rate 26 /min Earnest Jett [facility] 03-10-2023 11:50-0500 Body temperature 97.9 [degF] Sherry Magaña MD Work Phone: [facility] 03-10-2023 11:50-0500 Diastolic blood pressure 85 mm[Hg] Sherry Magaña MD Work Phone: [facility] 03-10-2023 11:50-0500 Heart rate 73 /min Sherry Magaña MD Work Phone: [facility] 03-10-2023 11:50-0500 Respiratory rate 18 /min Sherry Magaña MD Work Phone: [facility] 03-10-2023 11:50-0500 SaO2% (BldA) [Mass fraction] 100 % Sherry Magaña MD Work Phone: [facility] 03-10-2023 11:50-0500 Systolic blood pressure 137 mm[Hg] Sherry Magaña MD Work Phone: [facility] 03-10-2023 08:32-0500 Body mass index (BMI) [Ratio] 29.69 kg/m2 Sherry Magaña MD Work Phone: [facility] 03-10-2023 08:32-0500 Body weight 83.4 kg Sherry Magaña MD Work Phone: [facility] 03-05-2023 06:42-0500 Body height 167.6 cm Sherry Magaña MD Work Phone: [facility] 02-13-2023 17:30-0500 Diastolic blood pressure 73 mm[Hg] CURTAIN INSPECTOR-C Jaquan Cristhian Work Phone: [facility] 02-13-2023 17:30-0500 Heart rate 61 /min CURTAIN INSPECTOR-C Jaquan Cristhian Work Phone: [facility] 02-13-2023 17:30-0500 Respiratory rate 18 /min CURTAIN INSPECTOR-C Jaquan Cristhian Work Phone: [facility] 02-13-2023 17:30-0500 SaO2% (BldA) [Mass fraction] 100 % CURTAIN INSPECTOR-C Jaquan Cristhian Work Phone: [facility] 02-13-2023 17:30-0500 Systolic blood pressure 121 mm[Hg] CURTAIN INSPECTOR-C Jaquan Cristhian Work Phone: [facility] 02-13-2023 10:43-0500 Body height 167.64 cm CURTAIN INSPECTOR-C Jaquan Cristhian Work Phone: [facility] 02-13-2023 10:43-0500 Body weight 83 kg CURTAIN INSPECTOR-C Jaquan Cristhian Work Phone: [facility] 02-13-2023 10:42-0500 Body temperature 98.2 [degF] CURTAIN INSPECTOR-C Jaquan Cristhian Work Phone: [facility] 12-31-2022 15:49-0500 Diastolic blood pressure 82 mm[Hg] Mateusz Jose [facility] 12-31-2022 15:49-0500 Heart rate 81 /min Mateusz Jose [facility] 12-31-2022 15:49-0500 Mean blood pressure 96 mm[Hg] Mateusz Jose [facility] 12-31-2022 15:49-0500 Respiratory rate 16 /min Mateusz Jose [facility] 12-31-2022 15:49-0500 SaO2% (BldA) [Mass fraction] 100 % Mateusz Jose [facility] 12-31-2022 15:49-0500 Systolic blood pressure 124 mm[Hg] Mateusz Jose [facility] 12-31-2022 15:40-0500 Hourly Rounding Mateusz Jose [facility] 12-31-2022 15:40-0500 Promise to Return Mateusz Jose [facility] 12-31-2022 15:00-0500 Diastolic blood pressure 78 mm[Hg] Mateusz Jose [facility] 12-31-2022 15:00-0500 Heart rate 76 /min Mateusz Jose [facility] 12-31-2022 15:00-0500 Mean blood pressure 91 mm[Hg] Mateusz Jose [facility] 12-31-2022 15:00-0500 Systolic blood pressure 117 mm[Hg] Mateusz Jose [facility] 12-31-2022 14:40-0500 Hourly Rounding Mateusz Jose [facility] 12-31-2022 14:40-0500 Promise to Return Mateusz Garcia [facility] 12-31-2022 14:00-0500 Diastolic blood pressure 83 mm[Hg] Mateusz Jose [facility] 12-31-2022 14:00-0500 Heart rate 71 /min Mateusz Jose [facility] 12-31-2022 14:00-0500 Mean blood pressure 99 mm[Hg] Mateusz Jose [facility] 12-31-2022 14:00-0500 Systolic blood pressure 132 mm[Hg] Mateusz Jose [facility] 12-31-2022 13:40-0500 Hourly Rounding Mateusz Garcia [facility] 12-31-2022 13:40-0500 Promise to Return Mateusz Garcia [facility] 12-31-2022 12:42-0500 Body temperature 97.7 [degF] Mateusz Garcia [facility] 12-31-2022 12:42-0500 Heart rate 88 /min Mateusz Jose [facility] 12-04-2022 09:54-0400 Body height 166 cm Agustin Zamorano MD Work Phone: [facility] 12-04-2022 09:54-0400 Body weight 83.78 kg Agustin Zamorano MD Work Phone: [facility] 12-04-2022 09:54-0400 Diastolic blood pressure 62 mm[Hg] Agustin Zamorano MD Work Phone: [facility] 12-04-2022 09:54-0400 Heart rate 91 /min Agustin Zamorano MD Work Phone: [facility] 12-04-2022 09:54-0400 Systolic blood pressure 112 mm[Hg] Agustin Zamorano MD Work Phone: [facility] 11-04-2022 12:00-0400 Body temperature 97.7 [degF] Rheu Jeanne Work Phone: [facility] 11-04-2022 12:00-0400 Diastolic blood pressure 65 mm[Hg] Rheu Jeanne Work Phone: [facility] 11-04-2022 12:00-0400 Heart rate 97 /min Rheu Jeanne Work Phone: [facility] 11-04-2022 09:19-0400 Body height 167.6 cm Deacon Kat MD Work Phone: [facility] 11-04-2022 09:19-0400 Body temperature 97.81 [degF] Deacon Kat MD Work Phone: [facility] 11-04-2022 09:19-0400 Body weight 83.46 kg Deacon Kat MD Work Phone: [facility] 11-04-2022 09:19-0400 Diastolic blood pressure 81 mm[Hg] Deacon Kat MD Work Phone: [facility] 11-04-2022 09:19-0400 Heart rate 82 /min Deacon Kat MD Work Phone: [facility] 11-04-2022 09:19-0400 Respiratory rate 18 /min Deacon Kat MD Work Phone: [facility] 11-04-2022 09:19-0400 SaO2% (BldA) [Mass fraction] 98 % Deacon Kat MD Work Phone: [facility] 11-04-2022 09:19-0400 Systolic blood pressure 125 mm[Hg] Deacon Kat MD Work Phone: [facility] 11-02-2022 13:52-0400 Diastolic blood pressure 82 mm[Hg] Dimitri Walker MD Work Phone: [facility] 11-02-2022 13:52-0400 Heart rate 82 /min Dimitri Walker MD Work Phone: [facility] 11-02-2022 13:52-0400 Respiratory rate 18 /min Dimitri Walker MD Work Phone: [facility] 11-02-2022 13:52-0400 Systolic blood pressure 128 mm[Hg] Dimitri Walker MD Work Phone: [facility] 11-02-2022 10:35-0400 Body mass index (BMI) [Ratio] 30.18 kg/m2 Dimitri Walker MD Work Phone: [facility] 11-02-2022 10:35-0400 Body weight 84.82 kg Dimitri Walker MD Work Phone: [facility] Comment on above: stand up scale triage room 11-02-2022 10:34-0400 Body temperature 98.29 [degF] Dimitri Walker MD Work Phone: [facility] 11-02-2022 10:34-0400 SaO2% (BldA) [Mass fraction] 98 % Dimitri Walker MD Work Phone: [facility] 10-31-2022 08:30-0400 Diastolic blood pressure 67 mm[Hg] Jalyn Suresh DO Work Phone: [facility] 10-31-2022 08:30-0400 Systolic blood pressure 120 mm[Hg] Jalyn Suresh DO Work Phone: [facility] 10-31-2022 06:32-0400 Body temperature 97.7 [degF] Jalyn Suresh DO Work Phone: [facility] 10-31-2022 06:32-0400 Heart rate 92 /min Jalyn Suresh DO Work Phone: [facility] 10-31-2022 06:32-0400 Respiratory rate 19 /min Jalyn Suresh DO Work Phone: [facility] 10-31-2022 06:32-0400 SaO2% (BldA) [Mass fraction] 100 % Jalyn Suresh DO Work Phone: [facility] 10-20-2022 11:52-0400 Diastolic blood pressure 86 mm[Hg] Earnest Johnie [facility] 10-20-2022 11:52-0400 Heart rate 75 /min Earnest Johnie [facility] 10-20-2022 11:52-0400 Respiratory rate 15 /min Earnest Johnie [facility] 10-20-2022 11:52-0400 SaO2% (BldA) [Mass fraction] 99 % Earnest Johnie [facility] 10-20-2022 11:52-0400 Systolic blood pressure 141 mm[Hg] Earnest Johnie [facility] 10-20-2022 10:31-0400 Diastolic blood pressure 70 mm[Hg] Earnest Johnie [facility] 10-20-2022 10:31-0400 Heart rate 70 /min Earnest Johnie [facility] 10-20-2022 10:31-0400 Mean blood pressure 92 mm[Hg] Earnest Johnie [facility] 10-20-2022 10:31-0400 Respiratory rate 16 /min Earnest Johnie [facility] 10-20-2022 10:31-0400 SaO2% (BldA) [Mass fraction] 100 % Earnest Johnie [facility] 10-20-2022 10:31-0400 Systolic blood pressure 137 mm[Hg] Earnest Johnie [facility] 10-20-2022 09:17-0400 Diastolic blood pressure 63 mm[Hg] Earnest Blancoe [facility] 10-20-2022 09:17-0400 Heart rate 77 /min Earnest Blancoe [facility] 10-20-2022 09:17-0400 Mean blood pressure 85 mm[Hg] Earnest Blancoe [facility] 10-20-2022 09:17-0400 Respiratory rate 18 /min Earnest Blancoe [facility] 10-20-2022 09:17-0400 SaO2% (BldA) [Mass fraction] 100 % Earnest Blancoe [facility] 10-20-2022 09:17-0400 Systolic blood pressure 128 mm[Hg] Earnest Blancoe [facility] 10-20-2022 08:17-0400 Body temperature 97.88 [degF] Earnest Blancoe [facility] 10-19-2022 13:30-0400 Diastolic blood pressure 82 mm[Hg] Earnest Blancoe [facility] 10-19-2022 13:30-0400 Heart rate 67 /min Earnest Blancoe [facility] 10-19-2022 13:30-0400 Mean blood pressure 100 mm[Hg] Earnest Blancoe [facility] 10-19-2022 13:30-0400 Respiratory rate 20 /min Earnest Blancoe [facility] 10-19-2022 13:30-0400 SaO2% (BldA) [Mass fraction] 100 % Earnest Blancoe [facility] 10-19-2022 13:30-0400 Systolic blood pressure 136 mm[Hg] Earnest Jett [facility] 10-19-2022 13:00-0400 Heart rate 61 /min Earnest Blancoe [facility] 10-19-2022 13:00-0400 Respiratory rate 18 /min Earnest Jett [facility] 10-19-2022 13:00-0400 Systolic blood pressure 127 mm[Hg] Earnest Blancoe [facility] 10-19-2022 12:30-0400 Diastolic blood pressure 80 mm[Hg] Earnest Blancoe [facility] 10-19-2022 12:30-0400 Heart rate 60 /min Earnest Jett [facility] 10-19-2022 12:30-0400 Mean blood pressure 97 mm[Hg] Earnest Jett [facility] 10-19-2022 12:30-0400 Respiratory rate 20 /min Earnest Jett [facility] 10-19-2022 12:30-0400 SaO2% (BldA) [Mass fraction] 100 % Earnest Jett [facility] 10-19-2022 12:30-0400 Systolic blood pressure 132 mm[Hg] Earnest Blancoe [facility] 10-19-2022 08:34-0400 Body temperature 96.62 [degF] Earnest Johnie [facility] 10-19-2022 08:34-0400 Heart rate 73 /min Earnest Blancoe [facility] 09-28-2022 07:54-0400 Body height 167.[address] Work Phone: [facility] 09-28-2022 07:54-0400 Body weight 83.[address] Work Phone: [facility] 09-18-2022 15:12-0400 Body height 167.6 cm Breanna Stern ENGINEERING SCIENTIST.BLASTING MACHINE OPERATOR Work Phone: [facility] 09-18-2022 15:12-0400 Body temperature 97.5 [degF] Breanna Stern ENGINEERING SCIENTIST.BLASTING MACHINE OPERATOR Work Phone: [facility] 09-18-2022 15:12-0400 Body weight 83.46 kg Breanna Stern ENGINEERING SCIENTIST.BLASTING MACHINE OPERATOR Work Phone: [facility] 09-18-2022 15:12-0400 Diastolic blood pressure 88 mm[Hg] Breanna Stern ENGINEERING SCIENTIST.BLASTING MACHINE OPERATOR Work Phone: [facility] 09-18-2022 15:12-0400 Heart rate 65 /min Breanna Stern ENGINEERING SCIENTIST.BLASTING MACHINE OPERATOR Work Phone: [facility] 09-18-2022 15:12-0400 SaO2% (BldA) [Mass fraction] 99 % Breanna Stern ENGINEERING SCIENTIST.BLASTING MACHINE OPERATOR Work Phone: [facility] 09-18-2022 15:12-0400 Systolic blood pressure 118 mm[Hg] Breanna Stern ENGINEERING SCIENTIST.BLASTING MACHINE OPERATOR Work Phone: [facility] 07-29-2022 08:40-0400 Blood Pressure Location Rajni Lue [facility] 07-29-2022 08:40-0400 Diastolic blood pressure 86 mm[Hg] Rajni Lue [facility] 07-29-2022 08:40-0400 Heart rate 71 /min Rajni Lue [facility] 07-29-2022 08:40-0400 Systolic blood pressure 127 mm[Hg] Rajni Lue [facility] 07-22-2022 10:08-0400 Body height 167.6 cm Kasie Avalos MD Work Phone: [facility] 07-22-2022 10:08-0400 Body temperature 98.1 [degF] Kasie Avalos MD Work Phone: [facility] 07-22-2022 10:08-0400 Body weight 79.92 kg Kasie Avalos MD Work Phone: [facility] 07-22-2022 10:08-0400 Diastolic blood pressure 89 mm[Hg] Kasie Avalos MD Work Phone: [facility] 07-22-2022 10:08-0400 Heart rate 72 /min Kasie Avalos MD Work Phone: [facility] 07-22-2022 10:08-0400 SaO2% (BldA) [Mass fraction] 100 % Kasie Avalos MD Work Phone: [facility] 07-22-2022 10:08-0400 Systolic blood pressure 136 mm[Hg] Kasie Avalos MD Work Phone: [facility] 06-12-2022 10:00-0400 Body height 167.6 cm Aliyah Washburn PA-C Work Phone: [facility] 06-12-2022 10:00-0400 Body temperature 97.5 [degF] Aliyah Washburn PA-C Work Phone: [facility] 06-12-2022 10:00-0400 Body weight 84.37 kg Aliyah Lentzti PA-C Work Phone: [facility] 06-12-2022 10:00-0400 Diastolic blood pressure 78 mm[Hg] Aliyah Lentzti PA-C Work Phone: [facility] 06-12-2022 10:00-0400 Heart rate 68 /min Aliyah Washburn PA-C Work Phone: [facility] 06-12-2022 10:00-0400 Systolic blood pressure 123 mm[Hg] Aliyah Washburn PA-C Work Phone: [facility] 06-10-2022 17:43-0400 Diastolic blood pressure 74 mm[Hg] [facility] 06-10-2022 17:43-0400 Heart rate 65 /min [facility] 06-10-2022 17:43-0400 Mean blood pressure 90 mm[Hg] [facility] 06-10-2022 17:43-0400 Respiratory rate 16 /min [facility] 06-10-2022 17:43-0400 SaO2% (BldA) [Mass fraction] 100 % [facility] 06-10-2022 17:43-0400 Systolic blood pressure 122 mm[Hg] [facility] 06-10-2022 17:00-0400 Diastolic blood pressure 77 mm[Hg] [facility] 06-10-2022 17:00-0400 Heart rate 66 /min [facility] 06-10-2022 17:00-0400 Mean blood pressure 94 mm[Hg] [facility] 06-10-2022 17:00-0400 Systolic blood pressure 129 mm[Hg] [facility] 06-10-2022 16:00-0400 Heart rate 83 /min [facility] 06-10-2022 16:00-0400 Mean blood pressure 93 mm[Hg] [facility] 06-10-2022 16:00-0400 Systolic blood pressure 130 mm[Hg] [facility] 06-10-2022 12:32-0400 Body temperature 97.7 [degF] [facility] 06-10-2022 12:32-0400 Heart rate 88 /min [facility] 06-10-2022 12:32-0400 Respiratory rate 18 /min [facility] 03-06-2022 15:30-0500 Diastolic blood pressure 70 mm[Hg] Deacon Kat MD Work Phone: [facility] 03-06-2022 15:30-0500 Heart rate 67 /min Deacon Kat MD Work Phone: [facility] 03-06-2022 15:30-0500 Respiratory rate 16 /min Deacon Kat MD Work Phone: [facility] 03-06-2022 15:30-0500 SaO2% (BldA) [Mass fraction] 100 % Deacon Kat MD Work Phone: [facility] 03-06-2022 15:30-0500 Systolic blood pressure 105 mm[Hg] Deacon Kat MD Work Phone: [facility] 03-06-2022 13:00-0500 Body temperature 96.8 [degF] Deacon Kat MD Work Phone: [facility] 03-05-2022 09:33-0500 Body weight 89.81 kg Breanna Stern ENGINEERING SCIENTIST.BLASTING MACHINE OPERATOR Work Phone: [facility] 02-04-2022 09:23-0500 Body height 167.[address] Work Phone: [facility] 02-04-2022 09:23-0500 Body weight 93.[address] Work Phone: [facility] 02-03-2022 14:55-0500 Body height 167.6 cm Breanna Stern ENGINEERING SCIENTIST.BLASTING MACHINE OPERATOR Work Phone: [facility] 02-03-2022 14:55-0500 Body temperature 97 [degF] Breanna Stern ENGINEERING SCIENTIST.BLASTING MACHINE OPERATOR Work Phone: [facility] 02-03-2022 14:55-0500 Body weight 93.44 kg Breanna Stern ENGINEERING SCIENTIST.BLASTING MACHINE OPERATOR Work Phone: [facility] 02-03-2022 14:55-0500 Diastolic blood pressure 81 mm[Hg] Breanna Stern ENGINEERING SCIENTIST.BLASTING MACHINE OPERATOR Work Phone: [facility] 02-03-2022 14:55-0500 Heart rate 76 /min Breanna Stern ENGINEERING SCIENTIST.BLASTING MACHINE OPERATOR Work Phone: [facility] 02-03-2022 14:55-0500 SaO2% (BldA) [Mass fraction] 99 % Breanna Stern ENGINEERING SCIENTIST.BLASTING MACHINE OPERATOR Work Phone: [facility] 02-03-2022 14:55-0500 Systolic blood pressure 128 mm[Hg] Breanna Stern ENGINEERING SCIENTIST.BLASTING MACHINE OPERATOR Work Phone: [facility] 01-28-2022 08:41-0500 Body height 167.6 cm Pacc 2 Work Phone: [facility] 01-28-2022 08:41-0500 Body temperature 97.9 [degF] Pacc 2 Work Phone: [facility] 01-28-2022 08:41-0500 Body weight 94.8 kg Pacc 2 Work Phone: [facility] 01-28-2022 08:41-0500 Diastolic blood pressure 85 mm[Hg] Pacc 2 Work Phone: [facility] 01-28-2022 08:41-0500 Heart rate 65 /min Pacc 2 Work Phone: [facility] 01-28-2022 08:41-0500 Respiratory rate 16 /min Pacc 2 Work Phone: [facility] 01-28-2022 08:41-0500 SaO2% (BldA) [Mass fraction] 100 % Pacc 2 Work Phone: [facility] 01-28-2022 08:41-0500 Systolic blood pressure 131 mm[Hg] Pacc 2 Work Phone: [facility] 01-02-2022 11:06-0500 Body weight 92.99 kg Sabina Vacco ENGINEERING SCIENTIST.BLASTING MACHINE OPERATOR Work Phone: [facility] 12-25-2021 10:10-0500 Diastolic blood pressure 76 mm[Hg] Britt Cross MD Work Phone: [facility] 12-25-2021 10:10-0500 Heart rate 74 /min Britt Cross MD Work Phone: [facility] 12-25-2021 10:10-0500 Respiratory rate 18 /min Britt Cross MD Work Phone: [facility] 12-25-2021 10:10-0500 SaO2% (BldA) [Mass fraction] 100 % Britt Cross MD Work Phone: [facility] 12-25-2021 10:10-0500 Systolic blood pressure 140 mm[Hg] Britt Cross MD Work Phone: [facility] 12-25-2021 08:26-0500 Body height 167.6 cm Britt Cross MD Work Phone: [facility] 12-25-2021 08:26-0500 Body temperature 98.1 [degF] Britt Cross MD Work Phone: [facility] 12-25-2021 08:26-0500 Body weight 92.99 kg Britt Cross MD Work Phone: [facility] 10-09-2021 15:44-0400 Body height 167.6 cm Sabina Vacco ENGINEERING SCIENTIST.BLASTING MACHINE OPERATOR Work Phone: [facility] 10-09-2021 15:44-0400 Body weight 89.81 kg Sabina Vacco ENGINEERING SCIENTIST.BLASTING MACHINE OPERATOR Work Phone: [facility] 08-30-2021 03:47-0400 Diastolic blood pressure 70 mm[Hg] Pablo Atwood DO Work Phone: [facility] 08-30-2021 03:47-0400 Systolic blood pressure 130 mm[Hg] Pablo Atwood DO Work Phone: [facility] 08-30-2021 03:46-0400 Body temperature 100.4 [degF] Pablo Atwood DO Work Phone: [facility] 08-30-2021 03:46-0400 Heart rate 107 /min Pablo Atwood DO Work Phone: [facility] 08-30-2021 03:46-0400 Respiratory rate 19 /min Pablo Atwood DO Work Phone: [facility] 08-30-2021 03:46-0400 SaO2% (BldA) [Mass fraction] 96 % Pablo Atwood DO Work Phone: [facility] 08-28-2021 07:54-0400 Body height 167.[address] Work Phone: [facility] 08-28-2021 07:54-0400 Body weight 90.[address] Work Phone: [facility] 08-17-2021 12:00-0400 Body height 167.64 cm Shanna June Other [email or web address] Other 08-17-2021 12:00-0400 Body mass index (BMI) [Ratio] 33.08 kg/m2 Shanna June Other [email or web address] Other 08-17-2021 12:00-0400 Body temperature 98.1 [degF] Shanna June Other [email or web address] Other 08-17-2021 12:00-0400 Body weight 92.99 kg Shanna June Other [email or web address] Other 08-17-2021 12:00-0400 Diastolic blood pressure 80 mm[Hg] Shanna June Other [employer] Other 08-17-2021 12:00-0400 Respiratory rate 18 /min Shanna June Other [email or web address] Other 08-17-2021 12:00-0400 SaO2% (BldA) [Mass fraction] 99 % Shanna June Other [employer] Other 08-17-2021 12:00-0400 Systolic blood pressure 137 mm[Hg] Shanna June Other [email or web address] Other 07-27-2021 14:25-0400 Respiratory rate 18 /min Angela Do MD Work Phone: [facility] 07-27-2021 14:03-0400 SaO2% (BldA) [Mass fraction] 98 % Angela Do MD Work Phone: [facility] 07-27-2021 13:27-0400 Diastolic blood pressure 44 mm[Hg] Angela Do MD Work Phone: [facility] 07-27-2021 13:27-0400 Systolic blood pressure 110 mm[Hg] Angela Do MD Work Phone: [facility] 07-27-2021 10:18-0400 Body mass index (BMI) [Ratio] 31.47 kg/m2 Angela Do MD Work Phone: [facility] 07-27-2021 10:18-0400 Body temperature 98.6 [degF] Angela Do MD Work Phone: [facility] 07-27-2021 10:18-0400 Body weight 88.45 kg Angela Do MD Work Phone: [facility] 07-27-2021 10:18-0400 Heart rate 71 /min Angela Do MD Work Phone: [facility] 03-31-2021 11:00-0500 Body height 167.64 cm Shanna Slade Other [email or web address] Other 03-31-2021 11:00-0500 Body mass index (BMI) [Ratio] 33.08 kg/m2 Shanna Slade Other [employer] Other 03-31-2021 11:00-0500 Body temperature 98 [degF] Shanna Granadosault Other [employer] Other 03-31-2021 11:00-0500 Body weight 92.99 kg Shanna Granadosault Other [employer] Other 03-31-2021 11:00-0500 Diastolic blood pressure 91 mm[Hg] Shanna Slade Other [employer] Other 03-31-2021 11:00-0500 Respiratory rate 18 /min Shanna Slade Other [employer] Other 03-31-2021 11:00-0500 SaO2% (BldA) [Mass fraction] 100 % Shanna Slade Other [employer] Other 03-31-2021 11:00-0500 Systolic blood pressure 142 mm[Hg] Shanna Slade Other [employer] Other 01-28-2021 12:00-0500 Body height 167.64 cm Shanna Slade Other [employer] Other 01-28-2021 12:00-0500 Body mass index (BMI) [Ratio] 33.08 kg/m2 Shanna June Other [employer] Other 01-28-2021 12:00-0500 Body temperature 98 [degF] Shanna June Other [employer] Other 01-28-2021 12:00-0500 Body weight 92.99 kg Sahnna June Other [employer] Other 01-28-2021 12:00-0500 Diastolic blood pressure 92 mm[Hg] Shanna June Other [employer] Other 01-28-2021 12:00-0500 Respiratory rate 18 /min Shanna June Other [email or web address] Other 01-28-2021 12:00-0500 SaO2% (BldA) [Mass fraction] 100 % Shanna June Other [email or web address] Other 01-28-2021 12:00-0500 Systolic blood pressure 143 mm[Hg] Shanna June Other [employer] Other 12-17-2020 17:30-0400 Body height 167.64 cm Shanna June Other [email or web address] Other 12-17-2020 17:30-0400 Body mass index (BMI) [Ratio] 32.92 kg/m2 Shanna June Other [employer] Other 12-17-2020 17:30-0400 Body temperature 98.2 [degF] Shanna Granadosault Other [employer] Other 12-17-2020 17:30-0400 Body weight 92.53 kg Shanna June Other [employer] Other 12-17-2020 17:30-0400 Diastolic blood pressure 71 mm[Hg] Shanna June Other [employer] Other 12-17-2020 17:30-0400 Respiratory rate 18 /min Shanna June Other [employer] Other 12-17-2020 17:30-0400 SaO2% (BldA) [Mass fraction] 100 % Shanna June Other [employer] Other 12-17-2020 17:30-0400 Systolic blood pressure 117 mm[Hg] Shanna June Other [email or web address] Other 12-14-2020 15:07-0400 Body height 167.6 cm Shanna June ENGINEERING SCIENTIST - CURTAIN INSPECTOR Work Phone: [facility] Work Phone: 12-14-2020 15:07-0400 Body mass index (BMI) [Ratio] 32.77 kg/m2 Shanna June ENGINEERING SCIENTIST - CURTAIN INSPECTOR Work Phone: [facility] Work Phone: 12-14-2020 15:07-0400 Body temperature 98.8 [degF] Shanna June ENGINEERING SCIENTIST - CURTAIN INSPECTOR Work Phone: [facility] Work Phone: 12-14-2020 15:07-0400 Body weight 92.08 kg Shanna June ENGINEERING SCIENTIST - CURTAIN INSPECTOR Work Phone: [facility] Work Phone: 12-14-2020 15:07-0400 Diastolic blood pressure 90 mm[Hg] Shanna Slade ENGINEERING SCIENTIST - CURTAIN INSPECTOR Work Phone: [facility] Work Phone: 12-14-2020 15:07-0400 Heart rate 85 /min Shanna June ENGINEERING SCIENTIST - CURTAIN INSPECTOR Work Phone: [facility] Work Phone: 12-14-2020 15:07-0400 Respiratory rate 20 /min Shanna June ENGINEERING SCIENTIST - CURTAIN INSPECTOR Work Phone: [facility] Work Phone: 12-14-2020 15:07-0400 SaO2% (BldA) [Mass fraction] 100 % Shanna June ENGINEERING SCIENTIST - CURTAIN INSPECTOR Work Phone: [facility] Work Phone: 12-14-2020 15:07-0400 Systolic blood pressure 139 mm[Hg] Shanna June ENGINEERING SCIENTIST - CURTAIN INSPECTOR Work Phone: [facility] Work Phone: 07-02-2020 13:16-0400 Diastolic blood pressure 56 mm[Hg] Vaughn Ceja MD Work Phone: [facility] 07-02-2020 13:16-0400 Heart rate 71 /min Vaughn Ceja MD Work Phone: [facility] 07-02-2020 13:16-0400 Respiratory rate 18 /min Vaughn Ceja MD Work Phone: [facility] 07-02-2020 13:16-0400 SaO2% (BldA) [Mass fraction] 99 % Vaughn Ceja MD Work Phone: [facility] 07-02-2020 13:16-0400 Systolic blood pressure 165 mm[Hg] Vaughn Ceja MD Work Phone: [employer] 07-02-2020 12:44-0400 Body temperature 97.39 [degF] [facility] 07-02-2020 12:35-0400 Body height 167.6 cm Vaughn Ceja MD Work Phone: [facility] 07-02-2020 12:35-0400 Body mass index (BMI) [Ratio] 37.12 kg/m2 Vaughn Ceja MD Work Phone: [facility] 07-02-2020 12:35-0400 Body weight 104.33 kg Vaughn Ceja MD Work Phone: [facility] 01-30-2020 17:34-0500 BP Diastolic 76 mm[Hg] [facility] 01-30-2020 17:34-0500 BP Systolic 139 mm[Hg] [facility] 01-30-2020 17:34-0500 Pulse (Heart Rate) 87 /min [facility] 01-30-2020 17:34-0500 Pulse Oximetry 100 % [facility] 01-30-2020 17:34-0500 Respiratory Rate 18 /min [facility] 01-30-2020 13:22-0500 [facility] 13:16-0500 Body Temperature 97.81 [degF] [facility] Encounters Encounter Date Encounter Type Care Provider Facility Start: 09-02-2023 Orders Only Kasie Avalos MD Work Phone: Gastroenterology Start: 08-30-2023 End: 08-31-2023 ambulatory THOMAS Sandra Katarina Facility:[facility] Start: 08-30-2023 End: 08-31-2023 Nursing evaluation of patient and report Nurse [facility] Work Phone: Gastroenterology Comment on above: Gastroesophageal ref lux disease, unspecified whether esophagitis present (Primary Dx) Start: 08-26-2023 End: 08-26-2023 Nursing evaluation of patient and report Nurse [facility] Work Phone: Gastroenterology Comment on above: Gastroesophageal ref lux disease, unspecified whether esophagitis present Start: 08-26-2023 End: 08-26-2023 ambulatory THOMAS CALIX Facility:[facility] Start: 08-26-2023 End: 08-26-2023 Subsequent hospital visit by physician Britt Cross MD Work Phone: Gastroenterology Comment on above: Gastroesophageal ref lux disease, unspecified whether esophagitis present [K21.9] Start: 08-25-2023 ambulatory Vic Conner am, MD Work Phone: Pain Management Comment on above: Medication Start: 08-23-2023 Telephone encounter Deacon shahid MD Work Phone: General Surgery Comment on above: Refill Request Start: 08-21-2023 End: 08-21-2023 Emergency department patient visit CURTAIN INSPECTOR-Elroy Morrow Work Phone: [facility]-Emergency Room Work Phone: Start: 08-18-2023 Telephone encounter Deacon shahid MD Work Phone: General Surgery Comment on above: Patient Question; Ca re Coordinator - Other Start: 08-14-2023 End: 08-14-2023 Emergency department patient visit CURTAIN INSPECTOR-Elroy Morrow Work Phone: [facility]-Emergency Room Work Phone: Start: 08-12-2023 Telephone encounter Radha Arzate Gastroenterology Comment on above: Education Of Patient /family; Reminder Call (08/26/23 appt confirmed) Start: 08-09-2023 End: 08-09-2023 ambulatory THOMAS CALIX Facility:[facility] Start: 08-09-2023 End: 08-09-2023 Patient encounter procedure Vic Ramos MD Work Phone: Pain Management Comment on above: Neuralgia and neurit is (Primary Dx); Median arcuate ligament syndrome (HCC) Start: 08-07-2023 End: 08-08-2023 Evaluation and management of inpatient SAHNNA WOODS Facility:[facility] Start: 08-05-2023 ambulatory Boogie Sandy Work Phone: Pain Management Comment on above: Ketamine nasal spray Medication Renewal Start: 08-04-2023 Telephone encounter Boogie Tompkins ud, MD Work Phone: Pain Management Comment on above: Medication Problem Start: 08-04-2023 End: 08-06-2023 Evaluation and management of inpatient [facility] Facility:[facility] Start: 08-04-2023 End: 08-04-2023 ambulatory Rajni Rouse Facility:[facility] Start: 08-04-2023 End: 08-04-2023 Patient encounter procedure Boogie Murguia MD Work Phone: Pain Management Comment on above: Chronic abdominal pa in (Primary Dx); Gastroesophageal reflux disease without esophagitis; Neuralgia and neuritis; Median arcuate ligament syndrome (HCC); S/P gastric bypass Start: 07-31-2023 End: 07-31-2023 Emergency department patient visit CURTAIN INSPECTOR-Elroy Morrow Work Phone: [facility]-Emergency Room Work Phone: Start: 07-30-2023 End: 07-31-2023 Emergency department patient visit THOMAS CALIX Facility:[facility] Start: 07-28-2023 End: 07-28-2023 ambulatory TINO MONAHAN Not Available Start: 07-19-2023 Orders Only Deacon sousa MD Work Phone: General Surgery Comment on above: Chronic nausea (Prim reji Dx); History of laparoscopic partial gastrectomy; History of sphincterotomy of sphincter of Oddi; Median arcuate ligament syndrome (HCC) Start: 07-17-2023 End: 07-20-2023 Evaluation and management of inpatient DEACON KAT Facility:[facility] Start: 07-17-2023 End: 07-17-2023 Evaluation and management of inpatient CURTAIN INSPECTOR-Elroy Morrow Work Phone: [facility]-[address] [place] [address] Surgical Work Phone: Start: 07-15-2023 End: 07-15-2023 ambulatory JAQUAN MORROW Facility:[facility] Start: 07-13-2023 Telephone encounter Natalie Jameson LPN Gastroenterology Comment on above: Appointment Start: 07-13-2023 ambulatory OLGA Granados ty:JENNIFER Edmondson Start: 07-09-2023 End: 07-09-[address] [facility] Pablo Lebron PSYD Work Phone: Neurology Comment on above: ARSALAN (generalized anx iety disorder) (Primary Dx); Panic disorder without agoraphobia; Moderate recurrent major depression (HCC) Start: 07-06-2023 End: 07-06-2023 Emergency department patient visit KARINA SEVERIANO Facility:[facility] Start: 07-06-2023 End: 07-06-2023 ambulatory Francisco J Steve MD Work Phone: Urology Start: 07-06-2023 End: 07-06-2023 Patient encounter procedure Francisco J Steve MD Work Phone: Urology Comment on above: Urinary frequency (P rimary Dx); Urgency of urination Start: 06-29-2023 End: 07-05-2023 ambulatory DAVID QUIROZOLGA [facility] Start: 06-29-2023 End: 06-29-2023 Subsequent hospital visit by physician Sheridan Garciav1 [facility] Start: 06-29-2023 End: 07-03-2023 Evaluation and management of inpatient David Valadez DO Work Phone: [address] Comment on above: Epigastric pain (Loretta cecy Dx); Median arcuate ligament syndrome (CMS-HCC); Nausea and vomiting, unspecified vomiting type; Other specified hyperalimentation; Generalized abdominal pain Start: 06-29-2023 End: 06-29-2023 ambulatory MARCOS MORENO Not Available Start: 06-22-2023 End: 06-22-2023 Office outpatient visit 10 minutes Sherry Magaña MD Work Phone: [facility] Comment on above: Median arcuate ligam ent syndrome (CMS-HCC) (Primary Dx) Start: 06-22-2023 End: 06-22-2023 ambulatory SHERRY [facility] Start: 06-18-2023 End: 06-18-2023 Emergency department patient visit JAQUAN L CRISTHIAN Facility:[facility] Start: 06-18-2023 End: 06-18-2023 ambulatory JAQUAN L CRISTHIAN Facility:[facility] Start: 06-18-2023 End: 06-18-2023 Patient encounter procedure Breanna Stern APRN.BLASTING MACHINE OPERATOR Work Phone: General Surgery Comment on above: Sudden onset of sharon re abdominal pain (Primary Dx); Nausea and vomiting, unspecified vomiting type; PEG (percutaneous endoscopic gastrostomy) status (HCC) Start: 06-17-2023 Telephone encounter May Ramey APRN.BLASTING MACHINE OPERATOR Work Phone: Pain Management Comment on above: Appointment Start: 06-17-2023 End: 06-30-2023 ambulatory Jaquan L Cristhian Facility:[id number] Start: 06-15-2023 Telephone encounter Deacon shahid MD Work Phone: General Surgery Comment on above: Patient Update; Umm ent Question Start: 06-14-2023 Telephone encounter Stephanie Sumner DO Work Phone: [facility] Provider Adult Start: 06-14-2023 End: 06-14-2023 ambulatory Jaquan L Cristhian Facility:[facility] Afsaneh suarez Start: 06-10-2023 End: 06-15-2023 ambulatory Jaquan L Cristhian Facility:CD:[id number] Start: 06-09-2023 End: 06-09-2023 [facility] Pablo Lebron PSYD Work Phone: Neurology Comment on above: ARSALAN (generalized anx iety disorder) (Primary Dx); Panic disorder without agoraphobia; Moderate recurrent major depression (HCC) Start: 06-06-2023 End: 06-09-2023 Evaluation and management of inpatient MAIDANA LUCY Facility:[facility] Start: 06-03-2023 End: 06-03-2023 ambulatory JAQUAN L CRISTHIAN Facility:[facility] Start: 06-02-2023 End: 06-02-2023 ambulatory Jaquan L Cristhian Facility:[facility] Afsaneh suarez Start: 06-01-2023 End: 06-01-2023 ambulatory Vic Ramos MD Work Phone: Pain Management Comment on above: Neuralgia and neurit is (Primary Dx); Gastroesophageal reflux disease without esophagitis; Median arcuate ligament syndrome (HCC); S/P gastric bypass Start: 06-01-2023 End: 06-01-2023 Telemedicine consultation with patient Vic Ramos MD Work Phone: [facility] Start: 05-31-2023 End: 06-09-2023 ambulatory Jaquan L Cristhian Facility:CD:[id number] Start: 05-30-2023 End: 05-31-2023 Emergency department patient visit CURTAIN INSPECTOR-C Jaquan Reyesab Work Phone: [facility]-Emergency Room Work Phone: Start: 05-30-2023 Telephone encounter Deacon shahid MD Work Phone: General Surgery Start: 05-28-2023 End: 05-28-2023 Refill Kasie Avalos MD Work Phone: Gastroenterology Comment on above: Refill Request Medication Problem Start: 05-25-2023 End: 05-28-2023 Evaluation and management of inpatient DEACON KAT Facility:[facility] Start: 05-24-2023 Telephone encounter Deacon shahid MD Work Phone: General Surgery Comment on above: Patient Education; C are Coordinator - Other Start: 05-24-2023 End: 05-26-2023 ambulatory Mateusz Garcia Facility:[id number] Start: 05-20-2023 End: 05-20-2023 Emergency department patient visit TIFFANIE BELLA KEITH Facility:[facility] Start: 05-19-2023 End: 05-19-2023 ambulatory Jaquan L Cristhian Facility:[facility] Afsaneh cárdenase Start: 05-18-2023 Telephone encounter Deacon shahid MD Work Phone: General Surgery Comment on above: Received Outside Med ical Records Start: 05-18-2023 End: 05-22-2023 Evaluation and management of inpatient AJQUAN L CRISTHIAN Facility:[facility] Start: 05-17-2023 End: 05-17-2023 ambulatory Deacon Kat MD Work Phone: General Surgery Comment on above: Nausea and vomiting, unspecified vomiting type (Primary Dx) Start: 05-17-2023 End: 05-17-2023 Telemedicine consultation with patient Deacon Kat MD Work Phone: [facility] Start: 05-17-2023 End: 05-17-2023 Emergency department patient visit Ashutosh Albright [facility] Start: 05-17-2023 End: 05-19-2023 ambulatory Jaquan L Cristhian Facility:CD:[id number] Start: 05-12-2023 End: 05-14-2023 ambulatory Moncho Trejo [facility] Start: 05-12-2023 End: 05-14-2023 Observation Moncho Trejo [facility] Start: 05-11-2023 End: 05-11-2023 Emergency department patient visit Mateusz Garcia [facility] Start: 05-10-2023 Telephone encounter Deacon shahid MD Work Phone: General Surgery Comment on above: Patient Question Start: 05-10-2023 End: 05-10-2023 ambulatory Jaquan L Cristhian Facility:[facility] Afsaneh suarez Start: 05-09-2023 End: 05-09-2023 Emergency department patient visit Mateusz Garcia [facility] Start: 05-07-2023 Telephone encounter Santa Hart RN Ambulatory Surgery Comment on above: Appointment (Cancel EGD) Start: 05-06-2023 End: 05-06-2023 Emergency department patient visit Mateusz Garcia [facility] Start: 04-30-2023 End: 04-30-2023 ambulatory Jaquan L Cristhian Facility:[facility] Afsaneh suarez Start: 04-28-2023 End: 04-28-2023 ambulatory JAQUAN L CRISTHIAN Facility:[facility] Start: 04-28-2023 End: 04-28-2023 Patient encounter procedure Kasie Avalos MD Work Phone: Gastroenterology Comment on above: Gastroesophageal ref lux disease, unspecified whether esophagitis present (Primary Dx); Constipation, unspecified constipation type Start: 04-20-2023 End: 04-20-2023 Office outpatient visit 10 minutes Sherry Magaña MD Work Phone: [facility] Comment on above: Median arcuate ligam ent syndrome (CMS/HCC) (Primary Dx) Start: 04-20-2023 End: 04-20-2023 ambulatory [facility] Start: 04-07-2023 End: 04-07-2023 Postop follow up visit related to original px Sherry Magaña MD Work Phone: [facility] Comment on above: Median arcuate ligam ent syndrome (CMS/HCC) (Primary Dx) Start: 04-07-2023 End: 04-07-2023 ambulatory [facility] Start: 04-07-2023 End: 04-07-2023 Admission to same day surgery center Deacon Kat MD Work Phone: Endocrinology BMI Comment on above: Bariatric surgery st atus (Primary Dx); Dietary zinc deficiency; Vitamin D deficiency Start: 04-07-2023 End: 04-07-2023 ambulatory JAQUAN L CRISTHIAN Facility:[facility] Start: 04-07-2023 End: 04-07-2023 Telemedicine consultation with patient Deacon Kat MD Work Phone: [facility] Start: 04-06-2023 End: 04-06-2023 Emergency department patient visit CURTAIN INSPECTOR-C Jaquan Morrow Work Phone: [facility]Emergency [facility] Work Phone: Start: 04-02-2023 End: 04-02-2023 Emergency department patient visit Ashutosh Albright [facility] Start: 03-24-2023 End: 03-24-2023 ambulatory Jaquan Morrow Facility:[facility] Afsaneh suarez Start: 03-16-2023 End: 03-20-2023 Evaluation and management of inpatient Melisa Barker MD Work Phone: [facility] Comment on above: Abdominal pain (Prim reji Dx); Nausea and vomiting, unspecified vomiting type; History of gastric bypass; Median arcuate ligament syndrome (CMS/HCC) Start: 03-16-2023 End: 03-16-2023 Emergency department patient visit Earnest Jett [facility] Start: 03-15-2023 End: 03-15-2023 Emergency department patient visit Earnest Jett [facility] Start: 03-05-2023 End: 03-10-2023 Evaluation and management of inpatient Sherry Magaña MD Work Phone: [facility] Comment on above: Median arcuate ligam ent syndrome (CMS/HCC) (Primary Dx) Start: 03-02-2023 End: 03-03-2023 ambulatory NO ASSIGNED PCP GENERIC PROVIDER [facility] Start: 03-02-2023 End: 03-02-2023 ambulatory NO ASSIGNED PCP GENERIC PROVIDER [facility] Start: 03-02-2023 End: 03-02-2023 Encounter for other preprocedural examination NO ASSIGNED PCP GENERIC PROVIDER [facility] Start: 02-13-2023 End: 02-13-2023 Emergency department patient visit CURTAIN INSPECTORYohana Morrow Work Phone: [facility] Work Phone: Start: 02-12-2023 End: 02-12-2023 Emergency department patient visit NO ASSIGNED PCP GENERIC PROVIDER [facility] Start: 02-10-2023 End: 02-10-2023 ambulatory JAQUAN L CRISTHIAN Facility:[facility] Start: 02-03-2023 End: 02-03-2023 ambulatory Jaquan L Cristhian [facility] Start: 01-15-2023 Telephone encounter Deacon shahid MD Work Phone: Endocrinology BMI Comment on above: Patient Question; Pa tient Update Start: 01-14-2023 End: 01-14-2023 ambulatory Vic Ramos MD Work Phone: Pain Management Comment on above: Waitlist Start: 01-13-2023 End: 01-13-2023 Emergency department patient visit NO ASSIGNED PCP GENERIC PROVIDER [facility] Start: 01-11-2023 Orders Only Vic Conner [...] with patient Vic Ramos MD Work Phone: [facility] Start: 01-06-2023 Telephone encounter Vic saldana MD Work Phone: Pain Management Comment on above: Appointment Start: 12-31-2022 End: 12-31-2022 Emergency department patient visit Mateusz Garcia [facility] Start: 12-29-2022 End: 12-29-2022 ambulatory Jaquan L Cristhian [facility] Start: 12-28-2022 Telephone encounter Deacon shahid MD Work Phone: General Surgery Comment on above: Patient Update; Suly marin Start: 12-21-2022 End: 12-21-2022 ambulatory SHERRY Flores [facility] Start: 12-14-2022 End: 12-14-2022 ambulatory Deacon Kat MD Work Phone: Endocrinology BMI Comment on above: Worsening Symptoms S evere Abdominal pain, unsp ecified abdominal location (Primary Dx) Start: 12-14-2022 End: 12-15-2022 Emergency department patient visit [facility] Start: 12-14-2022 End: 12-14-2022 Telemedicine consultation with patient Deacon Kat MD Work Phone: [facility] Start: 12-09-2022 ambulatory [facility] Facility: [facility] [place] Start: 12-06-2022 End: 12-09-2022 Evaluation and management of inpatient SHANNA WOODS Facility:[facility] Start: 12-04-2022 End: 12-04-2022 Patient encounter procedure Agustin Zamorano MD Work Phone: General Surgery Comment on above: Generalized abdomina l pain (Primary Dx) Start: 12-04-2022 End: 12-04-2022 [facility] Facility:[facility] Start: 12-03-2022 Telephone encounter Oliva Dobbs RN General Surgery Start: 12-01-2022 Telephone encounter Deacon shahid MD Work Phone: Endocrinology BMI Comment on above: Patient Update Start: 12-01-2022 End: 12-01-2022 ambulatory Lokesh Terry Facility[facility] Start: 11-27-2022 End: 12-03-2022 Evaluation and management of inpatient MANDOYUVAL R MICHAEL [facility] Start: 11-26-2022 ambulatory DEACON KAT Facilit y:[facility] Start: 11-26-2022 End: 11-26-2022 Subsequent hospital visit by physician [facility] Work Phone: CARDIOVASCULAR TESTING Comment on above: Chronic nausea [R11. 0] Start: 11-26-2022 End: 11-26-2022 ambulatory JAQUAN L CRISTHIAN Facility:[facility] Start: 11-25-2022 Telephone encounter [facility] [place] Work Phone: Chronic Care Start: 11-25-2022 End: 11-25-2022 ambulatory Jaquan L Cristhian Facility:[facility] Afsaneh suarez Start: 11-23-2022 Telephone encounter Deacon shahid MD [...] 11-16-2022 Lab Drop off Jaquan L Cristhian [facility] Start: 11-14-2022 ambulatory Deacon sousa MD Work Phone: [facility] Start: 11-14-2022 Nutrition therapy Deacon turner MD Work Phone: Endocrinology BMI Comment on above: IV Nutrition Start: 11-13-2022 End: 11-13-2022 ambulatory PABLO HEADLEYLAND Facility:[facility] Start: 11-11-2022 End: 11-12-2022 ambulatory DEACON KAT Facility:[facility] Start: 11-10-2022 End: 11-10-2022 ambulatory JAQUAN L CRISTHIAN Facility:[facility] Start: 11-09-2022 Telephone encounter Deacon shahid MD Work Phone: Endocrinology BMI Comment on above: Surgery Rescheduled Start: 11-06-2022 ambulatory Agustin Sheets RT(R) [facility] Radiology Molecular Comment on above: Radiology NM Start: 11-06-2022 Patient encounter procedure Agustin Sheets RT(R) [facility] Start: 11-06-2022 Telephone encounter Deacon shahid MD Work Phone: Endocrinology BMI Comment on above: Patient Update Start: 11-05-2022 End: 11-08-2022 ambulatory [facility]AN [facility]HIAN [facility] Start: 11-04-2022 End: 11-04-2022 Patient encounter procedure Deacon Kat MD Work Phone: Endocrinology BMI Comment on above: Nausea (Primary Dx); RUQ pain; History of cholecystectomy Dehydration (Primary Dx); RUQ pain Right knee pain, uns pecified chronicity (Primary Dx) Start: 11-04-2022 End: 11-04-2022 ambulatory Rheu Chair 5 Jeanne Work Phone: Infusion Start: 11-04-2022 ambulatory [facility] Start: 11-04-2022 End: 11-04-2022 Subsequent hospital visit by physician [facility] Work Phone: [facility] Radiology Ultrasound Comment on above: Nausea [R11.0] Start: 11-04-2022 End: 11-04-2022 ambulatory JAQUAN L CRISTHIAN Facility:[facility] Start: 11-03-2022 End: 11-03-2022 ambulatory Jaquan L Cristhian Facility:[facility] Start: 11-02-2022 Refill Haroon ahumada APRN.CNP Work Phone: Neurology Start: 11-02-2022 End: 11-02-2022 Emergency department patient visit DIMITRI WALKER [facility] Start: 11-02-2022 End: 11-02-2022 Emergency department patient visit Dimitri Walker MD Work Phone: [facility] Emergency Department Start: 11-01-2022 ambulatory Deacon sousa MD Work Phone: Endocrinology BMI Comment on above: Worsening Symptoms Problem Start: 10-31-2022 Refill Breanna Stern ENGINEERING SCIENTIST.BLASTING MACHINE OPERATOR Work Phone: General Surgery Comment on above: Refill Request Start: 10-31-2022 End: 10-31-2022 Emergency department patient visit HARVEY Lesia [facility] Start: 10-31-2022 End: 10-31-2022 Emergency department patient visit Jalyn Suresh Work Phone: [facility] ED Comment on above: Back strain, initial encounter (Primary Dx) Start: 10-29-2022 End: 11-30-2022 ambulatory Jaquan L Cristhian Facility::[id number] Start: 10-27-2022 End: 10-27-2022 ambulatory JAQUAN L CRISTHIAN [facility] Start: 10-26-2022 End: 10-26-2022 ambulatory Jaquan L Cristhian Facility:[facility] Start: 10-25-2022 End: 10-28-2022 ambulatory RAYNA R ZACH [facility] Start: 10-24-2022 ambulatory Deacon sousa MD Work Phone: Endocrinology BMI Comment on above: Symptoms Start: 10-23-2022 End: 10-23-2022 Emergency department patient visit HARVEY Lesia [facility] Start: 10-21-2022 End: 10-21-2022 ambulatory Jaquan L Cristhian Facility:[facility] Start: 10-21-2022 End: 10-21-2022 Emergency department patient visit JAQUAN L CRISTHIAN Facility:[facility] Start: 10-20-2022 Telephone encounter Deacon shahid MD Work Phone: General Surgery Comment on above: Patient Question; Na usea & Vomiting Start: 10-20-2022 End: 10-20-2022 Emergency department patient visit Earnest Jett [facility] Start: 10-19-2022 ambulatory Breanna Stern ENGINEERING SCIENTIST.BLASTING MACHINE OPERATOR Work Phone: General Surgery Comment on above: Worsening Symptoms Start: 10-19-2022 End: 10-19-2022 Emergency department patient visit Earnest Jett [facility] Start: 10-18-2022 Emergency department patient visit JAQUAN CRISTHIAN Facility:[facility] Start: 10-17-2022 End: 10-17-2022 Emergency department patient visit WALLY Graf FOLEY [facility] Start: 10-15-2022 Refill Kasie Avalos MD Work Phone: Gastroenterology Comment on above: Refill Request Start: 10-07-2022 End: 10-07-2022 ambulatory Jaquan L Cristhian Facility:[facility] Afsaneh [facility] Start: 10-05-2022 End: 10-05-2022 [facility] [employer] Pablo Lebron PSYD Work Phone: Neurology Comment [...] Xiomara Terrymichael GARLAND Work Phone: [facility] Start: 09-22-2022 End: 09-22-2022 ambulatory JAQUAN L CRISTHIAN Facility:[facility] Start: 09-21-2022 End: 09-21-[address] [facility] Pablo Lebron PSYD Work Phone: Neurology Comment on above: ARSALAN (generalized anx iety disorder) (Primary Dx); Panic disorder without agoraphobia; Moderate recurrent major depression (HCC) Start: 09-18-2022 End: 09-18-2022 ambulatory JAQUAN L CRISTHIAN Facility:[facility] Start: 09-18-2022 End: 09-18-2022 Patient encounter procedure [...] encounter procedure Rajni Rouse [facility] Start: 07-28-2022 End: 07-28-2022 Patient [...] End: 07-20-2022 Lab Drop off Jaquan Morrow [facility] Start: 06-18-2022 End: 06-18-2022 ambulatory Aliyah Washburn PA-C Work Phone: [facility] Comment on above: Encounter to discuss test results (Primary Dx); NO SHOW Start: 06-18-2022 End: 06-18-2022 Telemedicine consultation with patient Aliyah Washburn PA-C Work Phone: [facility] Start: 06-12-2022 End: 06-12-2022 Patient encounter procedure Aliyah Washburn PA-C Work Phone: [facility] Comment on above: Polyarthralgia (Prim reji Dx); Malaise and fatigue; Subjective fever; S/P laparoscopic sleeve gastrectomy; History of syncope; History of adrenal insufficiency; Hypothyroidism, unspecified type Start: 06-11-2022 End: 07-24-2022 Pre-admission assessment Rui Joyner [facility] Start: 06-10-2022 End: 06-10-2022 Emergency department patient visit Ashutosh Valles Jose Ramon [facility] Start: 06-09-2022 End: 06-09-[address] DOCTOR CARRERA Facility:[facility] Start: 05-22-2022 End: 05-23-[address] WALLY FOLEY . Facility:[facility] Start: 03-30-2022 ambulatory Breanna Stern APRN.BLASTING MACHINE OPERATOR Work Phone: [facility] Start: 03-30-2022 Patient encounter procedure Breanna Stern APRN.BLASTING MACHINE OPERATOR Work Phone: General Surgery Comment on above: Cancel Appointment C annot Reach Anyone Start: 03-06-2022 End: 03-06-2022 Subsequent hospital visit by physician Deacon Kat MD Work Phone: [facility] Endoscopy - ENDO Comment on above: Esophageal dysphagia [R13.19] Start: 03-05-2022 Telephone encounter Li márquez RN Work Phone: Endocrinology BMI Comment on above: EGD Instructions Start: 03-05-2022 End: 03-05-2022 ambulatory Breanna Stern ENGINEERING SCIENTIST.BLASTING MACHINE OPERATOR Work Phone: General Surgery Comment on above: Esophageal dysphagia (Primary Dx); S/P gastric bypass; Postoperative malabsorption Start: 03-05-2022 End: 03-05-2022 Telemedicine consultation with patient Breanna Stern APRN.BLASTING MACHINE OPERATOR Work Phone: [facility] Start: 03-02-2022 End: 03-03-[address] WALLY FOLEY . Facility: Start: 02-17-2022 End: 02-18-[address] WALLY FOLEY . Facility: Start: 02-13-2022 End: 02-13-2022 Patient encounter procedure Kuldip Yousif MD Work Phone: [facility] Comment on above: Acetabular labrum te ar, right, subsequent encounter (Primary Dx) Start: 02-05-2022 Orders Only Deacon sousa MD Work Phone: Endocrinology BMI Comment on above: Postoperative pain Start: 02-04-2022 ambulatory Deacon sousa MD Work Phone: [facility] Start: 02-04-2022 Follow-up encounter Deacon shahid MD Work Phone: Endocrinology BMI Comment on above: Surgery Follow-Up Start: 02-04-2022 End: 02-04-2022 Admission to same day surgery center Nahed Tamez RD Work Phone: Nutrition Therapy Comment on above: S/P gastric surgery (Primary Dx); Dietary counseling Start: 02-04-2022 End: 02-04-2022 Telemedicine consultation with patient Nahed A Dashawn GARLAND Work Phone: [facility] Start: 02-03-2022 End: 02-03-2022 Patient encounter procedure Breanna Stern ENGINEERING SCIENTIST.BLASTING MACHINE OPERATOR Work Phone: General Surgery Comment on above: [...] Admission to establishment Pacc 2 Work Phone: [facility] Start: 01-28-2022 End: 01-28-2022 ambulatory Pac 2 [...] p. GJ revision) Start: 01-02-2022 End: 01-02-2022 [facility] Benita RYANBLASTING MACHINE OPERATOR Work Phone: General Surgery Comment on above: [...] Kat Start: 11-18-2021 Patient Update Breanna Stern ENGINEERING SCIENTIST.BLASTING MACHINE OPERATOR Work Phone: Endocrinology BMI Comment on above: Orders (pH Impedence ) Start: 11-17-2021 End: 11-17-2021 Telemedicine consultation with patient Deacon Kat MD Work Phone: [facility] Start: 11-17-2021 End: 11-17-2021 ambulatory Deacon Kat MD Work Phone: Endocrinology BMI Comment on above: Gastroesophageal ref lux disease without esophagitis (Primary Dx) Refill Request; Refi ll Request Start: 10-27-2021 End: 10-28-[address] WALLY FOLEY . Facility: Start: 10-21-2021 Telephone encounter Kuldip mckeon MD Work Phone: [facility] Comment on above: Appointment Start: 10-09-2021 End: 10-09-[address] [facility] Sabina Joy ENGINEERING SCIENTIST.BLASTING MACHINE OPERATOR Work Phone: General Surgery Comment on above: Gastroesophageal ref lux disease, unspecified whether esophagitis present (Primary Dx); Bariatric surgery status; Weight disorder; Class 1 obesity with serious comorbidity and body mass index (BMI) of 31.0 to 31.9 in adult, unspecified obesity type; S/P laparoscopic sleeve gastrectomy; Dietary counseling and surveillance Start: 10-08-2021 ambulatory Kuldip Yousif MD Work Phone: [facility] Start: 10-08-2021 Patient encounter procedure Kudlip Yousif MD Work Phone: [facility] Comment on above: Appointment Time Tod ay Start: 10-04-2021 End: 10-05-[address] WALLY FOLEY . Facility: Start: 08-30-2021 End: 08-30-2021 Emergency department patient visit Pablo Elroy Rai VALENZUELA Work Phone: [facility] Comment on above: Dental infection (Pr imary Dx) Start: 08-29-2021 End: 08-29-2021 ambulatory Justine Johnson Mele PA-C Work Phone: [facility] Comment on above: Tear of right acetab ular labrum, subsequent encounter (Primary Dx) Start: 08-29-2021 End: 08-29-2021 Telemedicine consultation with patient Justine Johnson Mele PA-C Work Phone: [facility] [address] Start: 08-28-2021 Refill Justine L Nicki ardon PA-C Work Phone: [facility] Comment on above: Refill Request Start: 08-28-2021 End: 08-28-[address] Work Phone: General Surgery Comment on above: S/P laparoscopic sle dee dee gastrectomy (Primary Dx); Obesity, Class I, BMI 30-34.9; Dietary counseling and surveillance Start: 08-28-2021 End: 08-28-2021 Telemedicine consultation with patient Xiomara Martinez RD Work Phone: [facility] Start: 08-25-2021 Encounter for genera l adult medical examination without abnormal findings SHANNA JUNE [facility] Start: 08-24-2021 ambulatory Deacon sousa MD Work [...] 08-17-2021 End: 08-17-2021 ambulatory Shanna Slade Other [email or web address] Other Start: 08-17-2021 Office outpatient vi sit 15 minutes Shanna June [facility] Start: 08-14-2021 Refill Justine ardon PA-C Work Phone: [facility] Comment on above: Refill Request Start: 08-01-2021 End: 08-01-2021 ambulatory Justine Shabazz PA-C Work Phone: [facility] Comment on above: Tear of right acetab ular labrum, subsequent encounter (Primary Dx) Start: 08-01-2021 End: 08-01-2021 Telemedicine consultation with patient Justine Alex Shabazz PA-C Work Phone: [facility] [address] Start: 07-30-2021 End: 07-30-[address] MARCOS MORENO . Facility:[facility] Start: 07-28-2021 ambulatory Justine ardon PA-C Work Phone: [facility] [address] Start: 07-28-2021 Patient encounter procedure Justine Shabazz PA-C Work Phone: [facility] Comment on above: Virtual Appointment Start: 07-27-2021 End: 07-27-2021 Emergency department patient visit Angela Do MD Work Phone: [facility] Comment on above: Generalized abdomina l pain (Primary Dx) Start: 07-14-2021 ambulatory Justine Caceres ac PA-C Work Phone: [facility] Comment on above: Medication Start: 07-11-2021 End: 08-26-[address] DOCTOR CARRERA Facility:[facility] Start: 07-04-2021 End: 07-04-2021 ambulatory Justine Johnsonc PA-C Work Phone: [facility] Comment on above: Tear of right acetab ular labrum, subsequent encounter (Primary Dx) Start: 07-04-2021 End: 07-04-2021 Telemedicine consultation with patient Justine Johnsonc PA-C Work Phone: [facility] [address] Start: 06-23-2021 Admission to [facility] Jace Duarte AT Work Phone: [facility] Comment on above: Schedule Surgery Start: 06-23-2021 ambulatory Jace solomon AT Work Phone: [facility] [address] Start: 06-18-2021 End: 06-18-2021 Patient encounter procedure Kuldip Yousif MD Work Phone: [facility] Comment on above: Acetabular labrum te ar, right, initial encounter (Primary Dx) Start: 06-02-2021 ambulatory LUCIE MORA Faci lity:[facility] [place] [facility] Start: 06-02-2021 End: 06-02-2021 Office outpatient visit 15 minutes Lucie Mora MD Work Phone: [facility] Comment on above: 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) Start: 04-02-2021 End: 04-02-2021 ambulatory Shanna June Other [email or web address] Other Start: 04-02-2021 Telephone encounter Shanna hooks [facility] Start: 03-31-2021 End: 03-31-2021 ambulatory Shanna June Other [email or web address] Other Start: 03-31-2021 Office outpatient vi sit 15 minutes Shanna June [facility] Start: 03-10-2021 End: 03-10-2021 ambulatory Shanna June Other [email or web address] Other Start: 03-10-2021 Telephone encounter Shanna hooks [facility] Start: 01-28-2021 End: 01-28-2021 ambulatory Shanna June Other [email or web address] Other Start: 01-28-2021 Office outpatient vi sit 15 minutes Shanna June [facility] Start: 12-17-2020 End: 12-17-2020 ambulatory Shanna June Other [email or web address] Other Start: 12-17-2020 Encounter for genera l adult medical examination without abnormal findings Shanna June [facility] Start: 12-17-2020 Periodic preventive med est patient 18-39 yrs Shanna June [facility] Start: 12-14-2020 End: 12-14-2020 Emergency department patient visit Shanna June ENGINEERING SCIENTIST - CURTAIN INSPECTOR Work Phone: [facility] Comment on above: Contusion of right t humb without damage to nail, initial encounter (Primary Dx) Start: 12-09-2020 ambulatory LUCIE Foster lity:[facility] Start: 07-02-2020 End: 07-02-2020 Emergency department patient visit Vaughn Ceja MD Work Phone: [facility] Emergency Department Start: 01-30-2020 End: 01-30-2020 Emergency department patient visit Agustin Gustafson Work Phone: [facility] Emergency Department Start: 09-25-2019 End: 08-04-2023 Preprocedural examination done Kuldip Yousif MD Work Phone: [facility] Work Phone: Start: 09-10-2017 End: 09-11-2017 Patient encounter DEFAULT PHYSICIAN Facility:[facility] Procedures Date Procedure Procedure Detail Performing Clinician Start: 08-26-2023 Esophagoscp rig transoral hypopharynx crv rene Avalos MD Work Phone: Start: 08-21-2023 Computed tomography of abdomen and pelvis with contrast CURTAIN INSPECTOR-C Jaquan Cristhian Work Phone: Start: 08-14-2023 Computed tomography of abdomen and pelvis with contrast CURTAIN INSPECTOR-C Jaquan Cristhian Work Phone: Start: 07-31-2023 Computed tomography of abdomen and pelvis with contrast CURTAIN INSPECTOR-C Jaquan Cristhian Work Phone: Start: 07-16-2023 Computed tomography of abdomen and pelvis with contrast CURTAIN INSPECTOR-C Jaquan Cristhian Work Phone: Start: 07-15-2023 Follow-up visit Follow Up RYLEE THACKER Start: 07-06-2023 Urnls dip stick/tablet rgnt auto w/o microscopy Bulk Order Provider Start: 07-03-2023 LONG CATHETER REMOVAL WOOSBAHMAN MAGAÑA Start: 07-03-2023 DISCHARGE PATIENT WOOSUP GÓMEZ Start: 07-03-2023 Glucose [Mass/volume] in Serum or Plasma WOOSUP GÓMEZ Start: 07-03-2023 Glucose quantitative blood xcpt reagent strip Kina Ann MD Work Phone: Start: 07-02-2023 Glucose [Mass/volume] in Serum or Plasma WOOSUP GÓMEZ Start: 07-02-2023 Glucose quantitative blood xcpt reagent strip Kina Ann MD Work Phone: Start: 07-02-2023 Glucose [Mass/volume] in Serum or Plasma SHERRY MAGAÑA Start: 07-02-2023 DIET TUBE FEEDING WITH TRAY SHERRY GÓMEZ Start: 07-02-2023 Glucose quantitative blood xcpt reagent strip Kina Ann MD Work Phone: Start: 07-02-2023 Glucose [Mass/volume] in Serum or Plasma SHERRY GÓMEZ Start: 07-02-2023 Glucose quantitative blood xcpt reagent strip Kina Ann MD Work Phone: Start: 07-02-2023 DO NOT REMOVE URINARY CATHETER WITHOUT PROVIDER ORDER SHERRY MAGAÑA Start: 07-02-2023 Glucose [Mass/volume] in Serum or Plasma SHERRY MAGAÑA Start: 07-02-2023 CBC panel - Blood by [...] 07-01-2023 Glucose [Mass/volume] in Serum or Plasma GABRIELLAMERARY GÓMEZ Start: 07-01-2023 Glucose quantitative blood xcpt reagent strip Dolores Cox MD Work Phone: Start: 07-01-2023 Glucose [Mass/volume] in Serum or Plasma SHERRY GÓMEZ Start: 07-01-2023 Glucose quantitative blood xcpt reagent strip Dolores Cox MD Work Phone: Start: 07-01-2023 XR CHEST 1 VIEW SHERRY GÓMEZ Start: 07-01-2023 Glucose [Mass/volume] in Serum or Plasma PHANI GÓMEZ Start: 07-01-2023 Glucose [Mass/volume] in Serum or Plasma WOOSUP VOLTAIRE Start: 07-01-2023 Radiologic exam chest single view Guanako Cox MD Work Phone: Start: 07-01-2023 Glucose quantitative blood xcpt reagent strip Dolores Cox MD Work Phone: Start: 07-01-2023 Glucose quantitative blood xcpt reagent strip Dolores Cox MD Work Phone: Start: 07-01-2023 Glucose [Mass/volume] in Serum or Plasma WOOSUP GÓMEZ Start: 07-01-2023 Glucose quantitative blood xcpt reagent strip Dolores Cox MD Work Phone: Start: 07-01-2023 CBC panel - Blood by Automated count WOOS GÓMEZ Start: 07-01-2023 Magnesium [Mass/volume] in Serum or Plasma WOOS GÓMEZ Start: 07-01-2023 RENAL FUNCTION PANEL WOOSUP GÓMEZ Start: 07-01-2023 Renal function panel Dolores Cox MD Work Phone: Start: 07-01-2023 BATH/SHOWER WITH CHLORHEXIDINE GLUCONATE WOOS GÓMEZ Start: 06-30-2023 Glucose [Mass/volume] in Serum or Plasma WOOSUP GÓMEZ Start: 06-30-2023 Glucose quantitative blood xcpt reagent strip Dolores Cox MD Work Phone: Start: 06-30-2023 MAY PARTICIPATE IN ROOM SERVICE WOBAHMNA BRAY Start: 06-30-2023 IP CONSULT TO SPIRITUAL CARE WOOS GÓMEZ Start: 06-30-2023 IP CONSULT TO NUTRITION SERVICES WOOSUP GÓMEZ Start: 06-30-2023 IP CONSULT TO SOCIAL WORK WOOSUP GÓMEZ Start: 06-30-2023 IP CONSULT TO RESPIRATORY CARE GABRIELLAOSBAHMAN CASTILLO Start: 06-30-2023 NOTIFY PROVIDER (DO NOT PROMPT FOR PARAMETERS) WOOSUP VOLTAIRE Start: 06-30-2023 NURSING COMMUNICATION WOOS GÓMEZ Start: 06-30-2023 PULSE OXIMETRY, CONTINUOUS WOOS VOLTAIRE Start: 06-30-2023 [facility] Start: 06-30-2023 STAPHYLOCOCCUS AUREUS/MRSA COLONIZATION, CULTURE [facility] Start: 06-30-2023 Glucose [Mass/volume] in Serum or [facility] Start: 06-30-2023 CT ANGIO ABDOMEN PELVIS W AND/OR WO IV IV CONTRAST [facility] Start: 06-30-2023 VASC US MESENTERIC ARTERY DUPLEX COMPLETE [facility] Start: 06-30-2023 Glucose quantitative blood xcpt reagent strip Baldomero Woodard MD Work Phone: Start: 06-30-2023 Ct angio abd&plvis cntrst mtrl w/wo cntrst img Tiffanie Mandy Mendez ENGINEERING SCIENTIST-BLASTING MACHINE OPERATOR Work Phone: Start: 06-30-2023 Dup-scan artl tiara abdl/pel/scrot&/rpr orgn com Jamil Gavin MD Work Phone: Start: 06-30-2023 CBC panel - Blood by Automated count [facility] Start: 06-30-2023 Comprehensive metabolic 2000 panel - Serum or Plasma [facility] Start: 06-30-2023 Magnesium [Mass/volume] in Serum or Plasma [facility] Start: 06-30-2023 Phosphate [Mass/volume] in Serum or Plasma [facility] Start: 06-30-2023 Comprehensive metabolic panel Baldomero serrano MD Work Phone: Start: 06-30-2023 IP CONS[facility] Start: 06-30-2023 CENTRAL VENOUS LINE CAP CHANGE - [facility] Start: 06-30-2023 CENTRAL VENOUS LINE DRESSING CHANGE - ADULT [facility] Start: 06-30-2023 CENTRAL VENOUS LINE TUBING CHANGE - [facility] Start: 06-30-2023 IP CONSULT TO ACUTE CARE SURGERY [facility] Start: 06-30-2023 GASTRIC TUBE CARE [facility] Start: 06-30-2023 NOTIFY PROVIDER (PROMPT FOR PARAMETERS) [facility] Start: 06-30-2023 NURSING COMMUNICATION [facility] Start: 06-30-2023 NURSING COMMUNICATION - DO NOT USE IN ORDER SETS [facility] Start: 06-30-2023 POCT GLUCOSE METER Lieferheld VOLTAIRE Start: 06-30-2023 EXTRA URINE ORLANDO TUBE GABRIELLAEnhatch VOLTAIRE Start: 06-30-2023 HCG, URINE, QUALITATIVE [facility]LLAFedora Pharmaceuticals[facility] Start: 06-30-2023 URINALYSIS WITH REFLEX CULTURE AND MICROSCOPIC [facility]AFedora [facility] Start: 06-30-2023 [facility] Start: 06-30-2023 ED [facility] FLOOR BED [facility] Start: 06-30-2023 EXTRA URINE ORLANDO TUBE David Valadez DO Work Phone: Start: 06-30-2023 Urinalysis complete W Reflex Culture panel - Urine David Valadez DO Work Phone: Start: 06-30-2023 Urnls dip stick/tablet rgnt auto w/o microscopy David Valadez DO Work Phone: Start: 06-30-2023 CT ABDOMEN PELVIS WO IV CONTRAST [facility] Start: 06-29-2023 Ct abdomen & pelvis w/o contrast material David Valadez DO Work Phone: Start: 06-29-2023 Basic metabolic 2000 panel - Serum or Plasma [employer] Start: 06-29-2023 CBC panel - Blood by Automated count [facility] Start: 06-29-2023 Glucose [Mass/volume] in Serum or Plasma Lieferheld VOLTAIRE Start: 06-29-2023 CBC W Auto Differential panel - Blood [facility] Start: 06-29-2023 Comprehensive metabolic 2000 panel - Serum or Plasma [facility] Start: 06-29-2023 Comprehensive metabolic panel David rowland DO Work Phone: Start: 06-29-2023 Ecg routine ecg w/least 12 lds trcg only w/o i&r David Valadez DO Work Phone: Start: 06-29-2023 End: 06-29-2023 Comprehensive metabolic panel David rowland DO Work Phone: Start: 06-18-2023 Electrocardiogram JAQUAN CRISTHIAN Start: 05-30-2023 Computed tomography of abdomen and pelvis with contrast CURTAIN INSPECTOR-C Jaquan Cristhian Work Phone: Start: 05-30-2023 Urine culture CURTAIN INSPECTOR-Elroy Morrow Work Phone: Start: 05-25-2023 Esophagoscp rig transoral hypopharynx crv rene Rouse Start: 05-20-2023 Esophagoscp rig transoral hypopharynx crv rene Rouse Start: 05-12-2023 Esophagogastroduodenoscopy Moncho ahumada Start: 04-06-2023 Computed tomography of abdomen and pelvis with contrast CURTAIN INSPECTOR-Elroy Jaquan Morrow Work Phone: Start: 03-20-2023 DISCHARGE PATIENT [facility] Start: 03-19-2023 DISCHARGE PATIENT [employer]OSS[facility] Start: 03-19-2023 Esophagogastroduodenoscopy [facility] Start: 03-19-2023 SURGICAL PATHOLOGY EXAM [facility]UP [facility] Start: 03-19-2023 Egd transoral biopsy single/multiple Deepikatyler Roy ENGINEERING SCIENTIST-BLASTING MACHINE OPERATOR Work Phone: Start: 03-19-2023 CBC panel - Blood by Automated count [employer] [facility] Start: 03-19-2023 Comprehensive metabolic 2000 panel - Serum or Plasma [facility] Start: 03-19-2023 Comprehensive metabolic panel Tiffanie Cruz all ENGINEERING SCIENTIST-BLASTING MACHINE OPERATOR Work Phone: Start: 03-18-2023 CBC panel - Blood by Automated count [facility] Start: 03-18-2023 Comprehensive metabolic 2000 panel - Serum or Plasma [facility] Start: 03-18-2023 Comprehensive metabolic panel Tiffanie J Sm all ENGINEERING SCIENTIST-BLASTING MACHINE OPERATOR Work Phone: Start: 03-17-2023 XR CHEST 1 VIEW [facility]OSS[facility] Start: 03-17-2023 Radiologic exam chest single view Tiffanie Mandy Small ENGINEERING SCIENTIST-BLASTING MACHINE OPERATOR Work Phone: Start: 03-17-2023 FL UPPER GI W DOUBLE CONTRAST W SMALL BOWEL FOLLOW THROUGH [facility] Start: 03-17-2023 Radiologic exam upr gi trc double contrast study Tiffanie Mendez ENGINEERING SCIENTIST-BLASTING MACHINE OPERATOR Work Phone: Start: 03-17-2023 XR CHEST 1 VIEW [facility]OS [employer] Start: 03-17-2023 Radiologic exam chest single view Tiffanie Mendez APRN-BLASTING MACHINE OPERATOR Work Phone: Start: 03-17-2023 CBC panel - Blood by Automated count [facility]OSS[facility] Start: 03-17-2023 Comprehensive metabolic 2000 panel - Serum or Plasma [facility] Start: 03-17-2023 ECG 12-LEAD [facility] Start: 03-17-2023 Comprehensive metabolic panel Tiffanie Cruz all ENGINEERING SCIENTIST-BLASTING MACHINE OPERATOR Work Phone: Start: 03-16-2023 CT ABDOMEN PELVIS W IV CONTRAST WOOS Jonh BULLK Start: 03-16-2023 Ct abdomen & pelvis w/contrast material Tiffanie Mendez APRN-BLASTING MACHINE OPERATOR Work Phone: Start: 03-16-2023 ED TO FLOOR BED REQUEST [facility] Start: 03-16-2023 PULSE OXIMETRY, CONTINUOUS [facility] Start: 03-16-2023 TELEMETRY MONITORING [facility] Start: 03-16-2023 MEASURE HEIGHT [facility] [employer] Start: 03-16-2023 ORTHOSTATIC BLOOD PRESSURE [facility] [employer] Start: 03-16-2023 WEIGH PATIENT [facility] Start: 03-16-2023 ADMIT TO INPATIENT [facility] Start: 03-16-2023 CBC W Auto Differential panel - Blood [facility] Start: 03-16-2023 Comprehensive metabolic 2000 panel - Serum or Plasma [facility] Start: 03-16-2023 SARS-COV-2 AND INFLUENZA A/B PCR [facility] Start: 03-16-2023 PULSE OXIMETRY, CONTINUOUS Tiffanie Mendez APRN-BLASTING MACHINE OPERATOR Work Phone: Start: 03-16-2023 Comprehensive metabolic panel Melisa lipscomb MD Work Phone: Start: 03-16-2023 Influenza virus A and B and SARS-CoV-2 (COVID-19) identified in Respiratory specimen by HANK with probe detection Melisa Barker MD Work Phone: Start: 03-10-2023 DISCHARGE PATIENT SHERRY MAGAÑA Start: 03-10-2023 DISCHARGE INSTRUCTIONS SHERRY MAGAÑA Start: 03-10-2023 Glucose [Mass/volume] in Serum or Plasma SHERRY VOLTAIRE Start: 03-10-2023 Glucose quantitative blood xcpt reagent strip Dolores Cox MD Work Phone: Start: 03-10-2023 Glucose [Mass/volume] in Serum or [facility] Start: 03-10-2023 Glucose quantitative blood xcpt reagent strip Dolores Cox MD Work Phone: Start: 03-10-2023 Basic metabolic 2000 panel - Serum or Plasma [facility] Start: 03-10-2023 CBC panel - Blood by Automated count SHERRY VOLTAIRE Start: 03-10-2023 Glucose [Mass/volume] in Serum or Plasma [facility] Start: 03-10-2023 End: 03-10-2023 Basic metabolic panel calcium total Alicia Toro ENGINEERING SCIENTIST-BLASTING MACHINE OPERATOR Work Phone: Start: 03-10-2023 POCT GLUCOSE METER SHERRY MAGAÑA Start: 03-10-2023 Glucose [Mass/volume] in Serum or Plasma [facility] Start: 03-10-2023 Glucose quantitative blood xcpt reagent strip Dolores Cox MD Work Phone: Start: 03-09-2023 Glucose [Mass/volume] in Serum or Plasma SHERRY VOLTAIRE Start: 03-09-2023 Glucose quantitative blood xcpt reagent strip Dolores Cox MD Work Phone: Start: 03-09-2023 Glucose [Mass/volume] in Serum or Plasma PHANI GÓMEZ Start: 03-09-2023 Glucose quantitative blood xcpt reagent strip Dolores Cox MD Work Phone: Start: 03-09-2023 C. DIFFICILE, PCR [facility] Start: 03-09-2023 STOOL PATHOGEN PANEL, [facility] Start: 03-09-2023 Glucose [Mass/volume] in Serum or Plasma [facility] Start: 03-09-2023 Iadna-dna/rna gi pthgn multiplex probe tq 6-11 Alicia Toro ENGINEERING SCIENTIST-[facility] Work Phone: Start: 03-09-2023 Inf agent det nucleic acid clostridium amp probe Alicia Toro ENGINEERING SCIENTIST-BLASTING MACHINE OPERATOR Work Phone: Start: 03-09-2023 IP CONSULT TO NUTRITION SERVICES [facility] Start: 03-09-2023 Glucose quantitative blood xcpt reagent strip Dolores Cox MD Work Phone: Start: 03-09-2023 Glucose [Mass/volume] in Serum or Plasma [facility] Start: 03-09-2023 ECG 12-LEAD [facility] Start: 03-09-2023 Basic metabolic 2000 panel - Serum or Plasma [facility] Start: 03-09-2023 CBC panel - Blood by Automated count [facility] Start: 03-09-2023 Glucose quantitative blood xcpt reagent strip Dolores Cox MD Work Phone: Start: 03-09-2023 Glucose [Mass/volume] in Serum or Plasma [facility] Start: 03-09-2023 Basic metabolic panel calcium total Alicia Toro ENGINEERING SCIENTIST-[facility] Work Phone: Start: 03-09-2023 Glucose [Mass/volume] in Serum or Plasma [facility] Start: 03-09-2023 Glucose quantitative blood xcpt reagent strip Dolores Cox MD Work Phone: Start: 03-09-2023 Glucose quantitative blood xcpt reagent strip Dolores Cox MD Work Phone: Start: 03-09-2023 POCT GLUCOSE METER [facility] Start: 03-09-2023 Glucose [Mass/volume] in Serum or Plasma [facility] Start: 03-08-2023 Glucose quantitative blood xcpt reagent strip Dolores Cox MD Work Phone: Start: 03-08-2023 Glucose [Mass/volume] in Serum or Plasma [employer] Start: 03-08-2023 Glucose quantitative blood xcpt reagent strip Dolores Cox MD Work Phone: Start: 03-08-2023 Glucose [Mass/volume] in Serum or Plasma SHERRY VOLTAIRE Start: 03-08-2023 Glucose quantitative blood xcpt reagent strip Dolores Cox MD Work Phone: Start: 03-08-2023 ECG 12[facility]AD [facility] Start: 03-08-2023 Glucose [Mass/volume] in Serum or [facility] Start: 03-08-2023 Glucose quantitative blood xcpt reagent strip Dolores Cox MD Work Phone: Start: 03-08-2023 Basic metabolic 2000 panel - Serum or Plasma [facility]LAFedora [facility] Start: 03-08-2023 CBC panel - Blood by Automated count [facility] Start: 03-08-2023 Glucose [Mass/volume] in Serum or Plasma [facility] Start: 03-08-2023 End: 03-08-2023 Basic metabolic panel calcium total Chrissy Harris PA-C Work Phone: Start: 03-08-2023 INSERT URETHRAL CATHETER [facility] Start: 03-08-2023 POCT GLUCOSE METER [facility]ed[facility] Start: 03-08-2023 Glucose [Mass/volume] in Serum or Plasma [facility] Start: 03-08-2023 Glucose quantitative blood xcpt reagent strip Karma Sharpe MD Work Phone: Start: 03-07-2023 Glucose [Mass/volume] in Serum or Plasma [facility] Start: 03-07-2023 Glucose quantitative blood xcpt reagent strip Karma Sharpe MD Work Phone: Start: 03-07-2023 Glucose [Mass/volume] in Serum or Plasma [facility] Start: 03-07-2023 Glucose quantitative blood xcpt reagent strip Karma Sharpe MD Work Phone: Start: 03-07-2023 Glucose [Mass/volume] in Serum or Plasma [facility] Start: 03-07-2023 Glucose quantitative blood xcpt reagent strip Karma Sharpe MD Work Phone: Start: 03-07-2023 Glucose [Mass/volume] in Serum or Plasma [facility] Start: 03-07-2023 Glucose quantitative blood xcpt reagent strip Karma Sharpe MD Work Phone: Start: 03-07-2023 Basic metabolic 2000 panel - Serum or Plasma [facility] Start: 03-07-2023 CBC panel - Blood by Automated count [facility] Start: 03-07-2023 Glucose [Mass/volume] in Serum or Plasma [facility] Start: 03-07-2023 Basic metabolic panel calcium total Chrissy Harris PA-C Work Phone: Start: 03-07-2023 RESPIRATORY CARE EVALUATION ONLY [facility] Start: 03-07-2023 Glucose quantitative blood xcpt reagent strip Karma Sharpe MD Work Phone: Start: 03-07-2023 POCT GLUCOSE METER [facility] Start: 03-07-2023 RESPIRATORY CARE EVALUATION ONLY Karma siegel MD Work Phone: Start: 03-07-2023 Glucose [Mass/volume] in Serum or Plasma [facility] Start: 03-06-2023 Glucose quantitative blood xcpt reagent strip Karma Sharpe MD Work Phone: Start: 03-06-2023 Glucose [Mass/volume] in Serum or Plasma [facility] Start: 03-06-2023 TELEMETRY MONITORING [facility] Start: 03-06-2023 Glucose quantitative blood xcpt reagent strip Karma Sharpe MD Work Phone: Start: 03-06-2023 TRANSFER PATIENT TO NEW UNIT [facility] Start: 03-06-2023 Glucose [Mass/volume] in Serum or Plasma [facility] Start: 03-06-2023 Glucose quantitative blood xcpt reagent strip Karma Sharpe MD Work Phone: Start: 03-06-2023 Glucose [Mass/volume] in Serum or Plasma [facility] Start: 03-06-2023 Glucose quantitative blood xcpt reagent strip Corie Head MD Work Phone: Start: 03-06-2023 Glucose [Mass/volume] in Serum or Plasma [facility] Start: 03-06-2023 XR CHEST 1 VIEW SHERRY VOLTAIRE Start: 03-06-2023 Glucose quantitative blood xcpt reagent strip Corie Head MD Work Phone: Start: 03-06-2023 Radiologic exam chest single view Shona Foster ENGINEERING SCIENTIST-BLASTING MACHINE OPERATOR Work Phone: Start: 03-06-2023 Basic metabolic 2000 panel - Serum or Plasma [facility] Start: 03-06-2023 CBC panel - Blood by Automated count [facility] Start: 03-06-2023 Magnesium [Mass/volume] in Serum or Plasma [facility] Start: 03-06-2023 Phosphate [Mass/volume] in Serum or Plasma [facility] Start: 03-06-2023 Glucose [Mass/volume] in Serum or Plasma [facility] Start: 03-06-2023 Basic metabolic panel calcium total Chrissy Harris PA-C Work Phone: Start: 03-06-2023 Glucose quantitative blood xcpt reagent strip Corie Head MD Work Phone: Start: 03-06-2023 POCT GLUCOSE METER SHERRY VOLTAIRE Start: 03-06-2023 PT EVAL AND TREAT [facility] Start: 03-06-2023 Glucose [Mass/volume] in Serum or Plasma [facility] Start: 03-05-2023 Glucose quantitative blood xcpt reagent strip Corie Head MD Work Phone: Start: 03-05-2023 Glucose [Mass/volume] in Serum or [facility] Start: 03-05-2023 Glucose quantitative blood xcpt reagent strip Corie Head MD Work Phone: Start: 03-05-2023 Glucose [Mass/volume] in Serum or [facility] Start: 03-05-2023 Basic metabolic 2000 panel - Serum or Plasma [facility] Start: 03-05-2023 CBC panel - Blood by Automated count [facility] Start: 03-05-2023 Magnesium [Mass/volume] in Serum or [facility] Start: 03-05-2023 Phosphate [Mass/volume] in Serum or Plasma [facility] Start: 03-05-2023 XR CHEST 1 VIEW SHERRY VOLTAIRE Start: 03-05-2023 POCT GLUCOSE METER SHERRY MAGAÑA Start: 03-05-2023 MEASURE HEIGHT SHERRY VOLTAIRE Start: 03-05-2023 WEIGH PATIENT SHERRY VOLTAIRE Start: 03-05-2023 FULL CODE [facility] Start: 03-05-2023 Glucose quantitative blood xcpt reagent strip Corie Head MD Work Phone: Start: 03-05-2023 ADMIT TO INPATIENT SHERRY MAGAÑA Start: 03-05-2023 TRANSFER PATIENT TO NEW UNIT SHERRY MAGAÑA Start: 03-05-2023 Basic metabolic panel calcium total Desmond Tirado PA-C Work Phone: Start: 03-05-2023 Radiologic exam chest single view Desmond Tirado PA-C Work Phone: Start: 03-05-2023 PULSE OXIMETRY, CONTINUOUS SHERRY GÓMEZ Start: 03-05-2023 [facility] Start: 03-05-2023 PULSE OXIMETRY, CONTINUOUS Serena George [...] Start: 03-02-2023 STAPHYLOCOCCUS AUREUS/MRSA COLONIZATION, CULTURE [facility]OSUP [facility]OLTAIRE Start: 02-13-2023 Computed tomography of abdomen and pelvis with contrast CURTAIN INSPECTOR-C Jaquan Morrow Work Phone: Start: 02-12-2023 CBC [...] GENERIC PROVIDER Start: 01-14-2023 ECG 12-LEAD WOOSUP VOLTAIRE Start: 01-14-2023 VASC US MESENTERIC ARTERY DUPLEX COMPLETE [employer] [facility] Start: 01-14-2023 Follow-up visit Follow-up [facility] Start: 01-13-2023 HCG, URINE, QUALITATIVE [employer] Start: 01-13-2023 URINALYSIS WITH REFLEX MICROSCOPIC OSUP VOLTAIRE Start: 01-13-2023 CBC W Auto Differential panel - Blood [facility] Start: 01-13-2023 Comprehensive metabolic 2000 panel - Serum or Plasma [facility] Start: 11-26-2022 Dup-scan artl tiara abdl/pel/scrot&/rpr orgn com Deacon Kat MD Work Phone: Start: 11-11-2022 Antibody screen JAQUAN MORROW Comment on above: Order Comment: Specimen Type: BLOOD SPEC IMENOrdering Facility: [facility] Address: [address] [place] [address] Performed By: #### T SCR ####OSVALDO BLOOD BANKIA [id number] [address] [place] Start: 11-11-2022 Ercp dx [...] Work Phone: Start: 10-31-2022 Comprehensive metabolic panel Ajlyn J Suresh DO Work Phone: Start: 10-27-2022 Esophagogastroduodenoscopy transoral diagnostic Jaquan Morrow Start: 10-26-2022 Thyrotropin [Units/volume] in Serum or Plasma Sherry Magaña MD Work Phone: Start: 06-24-2022 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 Breanna Stern APRN.BLASTING MACHINE OPERATOR Work Phone: Start: 03-06-2022 Esophagoscp rig transoral hypopharynx crv esoph Breanna Stern APRN.BLASTING MACHINE OPERATOR Work Phone: Start: 01-29-2022 Revision - value (qualifier value) Ashutosh Albright Comment on above: gastric sleeve revision Start: 01-28-2022 Antibody screen Pacc 2 Work Phone: Start: 01-28-2022 Ecg routine ecg w/least 12 lds trcg only w/o i&r [facility] Start: 12-25-2021 Esophagoscp rig transoral hypopharynx crv esoph eDacon Kat MD Work Phone: Start: 08-30-2021 NERVE [...] MD Work Phone: Start: 11-04-2020 Hysterectomy Sanchoit Hajulietteari Start: 07-02-2020 Us pelvic nonobstetric real-time [...] of 2) Zoster Vaccines (1 of 2) [facility] Start: 09-21-2026 DTaP/Tdap/Td vaccine (2 - Td or Tdap) DTaP/Tdap/Td vaccine (2 - Td or Tdap) [facility] Start: 09-21-2026 DTaP/Tdap/Td Vaccines (2 - Td or Tdap) DTaP/Tdap/Td Vaccines (2 - Td or Tdap) [facility] Start: 09-21-2026 Tetanus vaccination TET[facility] Start: 09-21-2026 Urine microalbumin profile [facility] Start: 08-08-2024 BP Controlled (<130/80) BP Controlled (<130/80) [facility] Start: 07-02-2024 Diabetes mellitus screening Diabetes Screening [facility] Start: 04-27-2024 BP Controlled (<130/80) BP Controlled (<130/80) [facility] Start: 03-10-2024 Diabetes mellitus screening Diabetes Screening [facility] Start: 12-05-2023 BP Controlled (<130/80) BP Controlled (<130/80) [facility] Start: 11-27-2023 BP Controlled (<130/80) BP Controlled (<130/80) [facility] Start: 10-27-2023 Thyroid stimulating hormone measurement TSH Level [facility] Start: 10-17-2023 Influenza vaccination Influenza Vaccine (#1) [facility] Start: 10-13-2023 End: 10-13-2023 Patient encounter procedure 10/13/2023 1:00 PM EDT Office Visit Gastroenterology [address] [place] [address] [facility] [address] [place] [address] rt page [phone] Gastroenterology Comment on above: rt page [phone] Start: 10-13-2023 End: 10-13-2023 ambulatory 10/13/2023 12:00 PM EDT Education Gastroenterology [address] [address] Dietitian, Cgrt [address] [place] [address] cgrt page [phone] Gastroenterology Comment on above: cgrt page [id number] Start: 09-22-2023 End: 09-22-2023 Patient encounter procedure 09/22/2023 9:40 AM EDT Office Visit Dermatology [address] [address] Samara Evnas MD [address] [place] [address] new tiny black spots on hand & arm Dermatology Comment on above: new tiny black spots on hand & arm Start: 09-09-2023 End: 09-09-2023 Patient encounter procedure 09/09/2023 2:00 PM EDT Office Visit Allergy [address] [place] [phone] Sara Velasquez MD [address] [place] [address] Facial swelling [R22.0] Allergy Comment on above: Facial swelling [R22.0] Start: 09-08-2023 End: 09-08-2023 Patient encounter procedure 09/08/2023 10:40 AM EDT Office Visit Gastroenterology [address] [address] Kasie Avalos MD [address] [place] [address] 3 month f/u Gastroenterology Comment on above: 3 month f/u Start: 09-03-2023 End: 09-03-2023 Patient encounter procedure 09/03/2023 12:45 PM EDT Office Visit Pulmonary Medicine [address] [place] [address] Alan Jurado MD [address] [place] [address] Follow-up of left lower lobe pneumonia Pulmonary Medicine Comment on above: Follow-up of left lower lobe pneumonia Start: 08-30-2023 End: 08-30-2023 Nursing evaluation of patient and report Gastroenterology Comment on above: Gastroesophageal reflux disease, unspeci fied whether esophagitis present [K21.9] Start: 08-26-2023 End: 08-26-2023 Nursing evaluation of patient and report 08/26/2023 3:00 PM EDT Nurse Visit Gastroenterology [address] [address] 2, Nurse Gi Lab [address] [address] Gastroesophageal reflux disease, unspecified whether esophagitis present [K21.9] Gastroenterology Comment on above: Gastroesophageal reflux disease, unspeci fied whether esophagitis present [K21.9] Start: 08-26-2023 End: 08-26-2023 Patient encounter procedure 08/26/2023 3:00 PM EDT Appointment Gastroenterology [address] [place] [phone] [place] [address] [place] [address] Gastroesophageal reflux disease, unspecified whether esophagitis present [K21.9] Gastroenterology Comment on above: Gastroesophageal reflux disease, unspeci fied whether esophagitis present [K21.9] Start: 08-09-2023 End: 08-09-2023 Patient encounter procedure 08/09/2023 2:00 PM EDT Office Visit Pain Management [address] [place] [address] Vic Ramos MD [address] [facility] [place] [address] follow up Pain Management Comment on above: follow up Start: 08-09-2023 End: 08-09-2023 Follow-up encounter 08/09/2023 9:[address] [facility] Neurology [address] [place] [address] Pablo Lebron, PSYD [address] [place] [address] follow up Neurology Comment on above: follow up Start: 08-04-2023 End: 08-04-2023 Patient encounter procedure 08/04/2023 9:00 AM EDT Office Visit Pain Management [address] [place] [address] Boogie Murguia MD [address] [place] [id number] medication refill (ketamine) Pain Management Comment on above: medication refill (ketamine) Start: 07-28-2023 End: 07-28-2023 Patient encounter procedure 07/28/2023 10:00 AM EDT Office Visit Gastroenterology [address] [address] Kasie Avalos MD [address] [place], [place] [phone] 3 month f/u Gastroenterology Comment on above: 3 month f/u Start: 07-22-2023 End: 07-22-2023 Patient encounter procedure 07/22/2023 9:30 AM EDT Office Visit Colorectal Surgery [address] [address] La Montes De Oca, ENGINEERING SCIENTIST.BLASTING MACHINE OPERATOR [address] [place], [place] [id number] Constipation, unspecified constipation type [K59.00] Colorectal Surgery Comment on above: Constipation, unspecified constipation t ype [K59.00] Start: 07-22-2023 End: 07-22-2023 Admission to same day surgery center 07/22/2023 9:00 AM EDT Procedure Colorectal Surgery [address] [address] La Montes De Oca, SLIM.BLASTING MACHINE OPERATOR [address] [place], [place] [phone] Constipation, unspecified constipation type [K59.00] Colorectal Surgery Comment on above: Constipation, unspecified constipation t ype [K59.00] Start: 07-22-2023 End: 07-22-2023 Nursing evaluation of patient and report 07/22/2023 8:00 AM EDT Nurse Visit Gastroenterology [address] [address] Lab, Nurse Gi I [address] [place] [address] Gastroesophageal reflux disease, unspecified whether esophagitis present [K21.9] Gastroenterology Comment on above: Gastroesophageal reflux disease, unspeci fied whether esophagitis present [K21.9] Start: 07-20-2023 End: 07-20-2023 Professional / ancillary services management 07/20/2023 2:00 PM EDT Ancillary Procedure [facility] [address] [address] [address] [facility] Start: 07-20-2023 End: 07-20-2023 Nursing evaluation of patient and report 07/20/2023 1:30 PM EDT Nurse Visit Gastroenterology [address] [address] Lab, Nurse Gi I [address] [place] [address] Gastroesophageal reflux disease, unspecified whether esophagitis present [K21.9] Gastroenterology Comment on above: Gastroesophageal reflux disease, unspeci fied whether esophagitis present [K21.9] Start: 07-20-2023 End: 07-20-2023 Patient encounter procedure Gastroenterology Comment on above: Gastroesophageal reflux disease, unspeci fied whether esophagitis present [K21.9] Start: 07-17-2023 [facility] Start: 07-17-2023 Referral to general surgeon [facility] Start: 07-17-2023 Hospital admission [facility] Start: 07-15-2023 End: 07-15-2023 Patient encounter procedure 07/15/2023 3:15 PM EDT Office Visit Pain Management [address] [place] [address] Vic Ramos MD [address] [place], [place] [phone] est Pain Management Comment on above: est Start: 07-15-2023 End: 07-15-2023 Patient encounter procedure 07/15/2023 7:30 AM EDT Office Visit Pain Management [address] [place] [address] May Ramey APRN.BLASTING MACHINE OPERATOR [address] [place] [address] Needs medication, unknown who can order Pain Management Comment on above: Needs medication, unknown who can order Start: 07-09-2023 End: 07-09-2023 Follow-up encounter 07/09/2023 9:[address] [facility] Neurology [address] [facility] [address] [place] [address] Pablo Lebron, [facility] [address] [place], [place] [phone] follow up Neurology Comment on above: follow up Start: 07-07-2023 End: 07-07-2023 Patient encounter procedure 07/07/2023 10:30 AM EDT Office Visit Colorectal Surgery [address] [address] Vonda Hercules PA-C [address] [place] [address] Constipation, unspecified constipation type [K59.00] Colorectal Surgery Comment on above: Constipation, unspecified constipation t ype [K59.00] Start: 07-07-2023 End: 07-07-2023 Admission to same day surgery center 07/07/2023 10:00 AM EDT Procedure Colorectal Surgery [address] [address] Vonda Hercules PA-C [address] [place], [place] [phone] Constipation, unspecified constipation type [K59.00] Colorectal Surgery Comment on above: Constipation, unspecified constipation t ype [K59.00] Start: 06-23-2023 End: 06-23-2023 Patient encounter procedure 06/23/2023 9:00 AM EDT Office Visit Plastic Surgery [address] [address] Juana Padilla APRN.BLASTING MACHINE OPERATOR [address] [place] [address] CONSULT FOR SKIN REMOVAL WEIGHT LOSS SURGERY PROVIDER LISSET KAT, BABS 01/2022 @ [facility] Plastic Surgery Comment on above: CONSULT FOR SKIN REMOVAL WEIGHT LOSS RED [place] PROVIDER LISSET KAT FV 01/2022 @ [facility] Start: 06-18-2023 End: 06-18-2023 Follow-up encounter 06/18/2023 4:00 PM EDT [facility] [address] [facility] [place] [address] Vic Ramos MD [address] [place] [address] [place] [address] Hospital Follow Up chronic pain Pain Management Comment on above: Hospital Follow Up chronic pain Start: 06-18-2023 End: 06-18-2023 Patient encounter procedure 06/18/2023 10:00 AM EDT Office Visit [facility] [address] [facility] [address] [address] Breanna Stern APRN.BLASTING MACHINE OPERATOR [address] [place] [address] Post PEG-J placement General Surgery Comment on above: Post PEG-J placement Start: 06-15-2023 End: 06-15-2023 Patient encounter procedure 06/15/2023 11:00 AM EDT Office Visit General Surgery [address] [facility] [address] [place] [address] Breanna Stern APRN.BLASTING MACHINE OPERATOR [address] [place] [address] Post PEG-J placement General Surgery Comment on above: Post PEG-J placement Start: 06-13-2023 BP CONTROLLED (<130/80) BP CONTROLLED (<130/80) [facility] Start: 05-30-2023 Bacteria identified in Urine by Culture [facility] Start: 04-12-2023 End: 04-12-2023 Telemedicine consultation with patient 04/12/2023 9:00 AM EST Telemedicine [facility] [place] [address] [address] [facility] [place] [address] [place] [address] [place] [address] [facility] Start: 11-23-2022 End: 11-24-2023 US MESENTERIC ARTERY CMPLT VAS LAB US MESENTERIC ARTERY CMPLT [facility] Vascular Lab [place] Chronic nausea RUQ pain Expected: 11/23/2022, Expires: 11/24/2023 [facility] Work Phone: Comment on above: Expected: 11/23/2022, Expires: Start: 11-18-2022 End: 01-18-2023 25-hydroxyvitamin D3 [Mass/volume] in Serum or Plasma VITAMIN D 25 HYDROXY Lab Routine S/P bariatric surgery Impaired intestinal absorption Expected: 11/18/2022 (Approximate), Expires: 01/18/2023 [facility] Work Phone: Comment on above: Expected: 11/18/2022 (Approximate), Expi res: 01/18/2023 Start: 11-18-2022 End: 01-18-2023 CBC panel - Blood by Automated count CBC Lab Routine S/P bariatric surgery Impaired intestinal absorption Expected: 11/18/2022 (Approximate), Expires: 01/18/2023 [facility] Work Phone: Comment on above: Expected: 11/18/2022 (Approximate), Expi res: 01/18/2023 Start: 11-18-2022 End: 01-18-2023 Cobalamin (Vitamin B12) [Mass/volume] in Serum or Plasma VITAMIN B12 BLOOD Lab Routine S/P bariatric surgery Impaired intestinal absorption Expected: 11/18/2022 (Approximate), Expires: 01/18/2023 [facility] Work Phone: Comment on above: Expected: 11/18/2022 (Approximate), Expi res: 01/18/2023 Start: 11-18-2022 End: 01-18-2023 Comprehensive metabolic 2000 panel - Serum or Plasma COMP METABOLIC PANEL Lab Routine S/P bariatric surgery Impaired intestinal absorption Expected: 11/18/2022 (Approximate), Expires: 01/18/2023 [facility] Work Phone: Comment on above: Expected: 11/18/2022 (Approximate), Expi res: 01/18/2023 Start: 11-18-2022 End: 01-18-2023 Ferritin [Mass/volume] in Serum or Plasma FERRITIN BLD Lab Routine S/P bariatric surgery Impaired intestinal absorption Expected: 11/18/2022 (Approximate), Expires: 01/18/2023 [facility] Work Phone: Comment on above: Expected: 11/18/2022 (Approximate), Expi res: 01/18/2023 Start: 11-18-2022 End: 01-18-2023 Folate [Mass/volume] in Serum or Plasma FOLATE SERUM Lab Routine S/P bariatric surgery Impaired intestinal absorption Expected: 11/18/2022 (Approximate), Expires: 01/18/2023 [facility] Work Phone: Comment on above: Expected: 11/18/2022 (Approximate), Expi res: 01/18/2023 Start: 11-18-2022 End: 01-18-2023 Iron and Iron binding capacity panel - Serum or Plasma IRON + TIBC Lab Routine S/P bariatric surgery Impaired intestinal absorption Expected: 11/18/2022 (Approximate), Expires: 01/18/2023 [facility] Work Phone: Comment on above: Expected: 11/18/2022 (Approximate), Expi res: 01/18/2023 Start: 11-18-2022 End: 01-18-2023 Parathyrin.intact [Mass/volume] in Serum or Plasma PTH INTACT BLD Lab Routine S/P bariatric surgery Impaired intestinal absorption Expected: 11/18/2022 (Approximate), Expires: 01/18/2023 [facility] Work Phone: Comment on above: Expected: 11/18/2022 (Approximate), Expi res: 01/18/2023 Start: 11-18-2022 End: 01-18-2023 Retinol [Mass/volume] in Serum or Plasma VITAMIN A/RETINOL Lab Routine S/P bariatric surgery Impaired intestinal absorption Expected: 11/18/2022 (Approximate), Expires: 01/18/2023 [facility] Work Phone: Comment on above: Expected: 11/18/2022 (Approximate), Expi res: 01/18/2023 Start: 11-18-2022 End: 01-18-2023 VITAMIN B1 (THIAMINE), WHOLE BLOOD VITAMIN B1 (THIAMINE), WHOLE BLOOD Lab Routine S/P bariatric surgery Impaired intestinal absorption Expected: 11/18/2022 (Approximate), Expires: 01/18/2023 [facility] Work Phone: Comment on above: Expected: 11/18/2022 (Approximate), Expi res: 01/18/2023 Start: 11-18-2022 End: 01-18-2023 Zinc [Mass/volume] in Serum or Plasma ZINC BLD Lab Routine S/P bariatric surgery Impaired intestinal absorption Expected: 11/18/2022 (Approximate), Expires: 01/18/2023 [facility] Work Phone: Comment on above: Expected: 11/18/2022 (Approximate), Expi res: 01/18/2023 Start: 11-04-2022 End: 01-04-2023 Amylase [Enzymatic activity/volume] in Serum or Plasma [facility] Work Phone: Comment on above: Expected: 11/04/2022, Expires: 3 Start: 11-04-2022 End: 01-04-2023 Lipase [Enzymatic activity/volume] in Serum or Plasma [facility] Work Phone: Comment on above: Expected: 11/04/2022, Expires: 3 Start: 10-16-2022 Covid-19 Vaccine () Covid-19 Vaccine () [facility] Start: 10-16-2022 Influenza vaccination [facility] Start: 09-15-2022 Influenza vaccination Flu vaccine (#1) [facility] Start: 07-28-2022 End: 09-27-2022 CBC W Auto Differential panel - Blood CBC + DIFF Lab Routine Rash and nonspecific skin eruption Expected: 07/28/2022, Expires: 09/27/2022 [facility] Work Phone: Comment on above: Expected: 07/28/2022, Expires: 3 Start: 07-28-2022 End: 09-27-2022 Comprehensive metabolic 2000 panel - Serum or Plasma COMP METABOLIC PANEL Lab Routine Rash and nonspecific skin eruption Facial edema Expected: 07/28/2022, Expires: 09/27/2022 [facility] Work Phone: Comment on above: Expected: 07/28/2022, Expires: 3 Start: 06-12-2022 End: 08-12-2022 MISAEL BY IFA WITH REFLEX [facility] Work Phone: Comment on above: Expected: 06/12/2022, Expires: 3 Start: 06-12-2022 End: 08-12-2022 Borrelia burgdorferi IgG and IgM panel - Serum [facility] Work Phone: Comment on above: Expected: 06/12/2022, Expires: 3 Start: 06-12-2022 End: 08-12-2022 Cyclic citrullinated peptide IgG Ab [Units/volume] in Serum or Plasma [facility] Work Phone: Comment on above: Expected: 06/12/2022, Expires: 3 Start: 06-12-2022 End: 08-12-2022 MONOCLONAL PROTEIN, SERUM (BLOOD) [facility] Work Phone: Comment on above: Expected: 06/12/2022, Expires: 3 Start: 06-12-2022 End: 08-12-2022 Niacin [Mass/volume] in Serum or Plasma [facility] Work Phone: Comment on above: Expected: 06/12/2022, Expires: Start: 06-12-2022 End: 08-12-2022 PROTEIN ELECTROPHORESIS SERUM W/INTERP [facility] Work Phone: Comment on above: Expected: 06/12/2022, Expires: Start: 06-12-2022 End: 08-12-2022 Pyridoxine [Mass/volume] in Serum or Plasma [facility] Work Phone: Comment on above: Expected: 06/12/2022, Expires: Start: 06-12-2022 End: 08-12-2022 VITAMIN B1 (THIAMINE), WHOLE BLOOD [facility] Work Phone: Comment on above: Expected: 06/12/2022, Expires: Start: 05-03-2022 End: 07-03-2022 25-hydroxyvitamin D3 [Mass/volume] in Serum or Plasma VITAMIN D 25 HYDROXY Lab Routine S/P gastric bypass Postoperative malabsorption Expected: 05/03/2022 (Approximate), Expires: 07/03/2022 [facility] Work Phone: Comment on above: Expected: 05/03/2022 (Approximate), Expi res: 07/03/2022 Start: 05-03-2022 End: 07-03-2022 CBC panel - Blood by Automated count CBC Lab Routine S/P gastric bypass Postoperative malabsorption Expected: 05/03/2022 (Approximate), Expires: 07/03/2022 [facility] Work Phone: Comment on above: Expected: 05/03/2022 (Approximate), Expi res: 07/03/2022 Start: 05-03-2022 End: 07-03-2022 Cobalamin (Vitamin B12) [Mass/volume] in Serum or Plasma VITAMIN B12 BLOOD Lab Routine S/P gastric bypass Postoperative malabsorption Expected: 05/03/2022 (Approximate), Expires: 07/03/2022 [facility] Work Phone: Comment on above: Expected: 05/03/2022 (Approximate), Expi res: 07/03/2022 Start: 05-03-2022 End: 07-03-2022 Comprehensive metabolic 2000 panel - Serum or Plasma COMP METABOLIC PANEL Lab Routine S/P gastric bypass Postoperative malabsorption Expected: 05/03/2022 (Approximate), Expires: 07/03/2022 [facility] Work Phone: Comment on above: Expected: 05/03/2022 (Approximate), Expi res: 07/03/2022 Start: 05-03-2022 End: 07-03-2022 Ferritin [Mass/volume] in Serum or Plasma FERRITIN BLD Lab Routine S/P gastric bypass Postoperative malabsorption Expected: 05/03/2022 (Approximate), Expires: 07/03/2022 [facility] Work Phone: Comment on above: Expected: 05/03/2022 (Approximate), Expi res: 07/03/2022 Start: 05-03-2022 End: 07-03-2022 Folate [Mass/volume] in Serum or Plasma FOLATE SERUM Lab Routine S/P gastric bypass Postoperative malabsorption Expected: 05/03/2022 (Approximate), Expires: 07/03/2022 [facility] Work Phone: Comment on above: Expected: 05/03/2022 (Approximate), Expi res: 07/03/2022 Start: 05-03-2022 End: 07-03-2022 Iron and Iron binding capacity panel - Serum or Plasma IRON + TIBC Lab Routine S/P gastric bypass Postoperative malabsorption Expected: 05/03/2022 (Approximate), Expires: 07/03/2022 [facility] Work Phone: Comment on above: Expected: 05/03/2022 (Approximate), Expi res: 07/03/2022 Start: 05-03-2022 End: 07-03-2022 Parathyrin.intact [Mass/volume] in Serum or Plasma PTH INTACT BLD Lab Routine S/P gastric bypass Postoperative malabsorption Expected: 05/03/2022 (Approximate), Expires: 07/03/2022 [facility] Work Phone: Comment on above: Expected: 05/03/2022 (Approximate), Expi res: 07/03/2022 Start: 05-03-2022 End: 07-03-2022 Thyrotropin [Units/volume] in Serum or Plasma TSH BLD Lab Routine S/P gastric bypass Postoperative malabsorption Expected: 05/03/2022 (Approximate), Expires: 07/03/2022 [facility] Work Phone: Comment on above: Expected: 05/03/2022 (Approximate), Expi res: 07/03/2022 Start: 05-03-2022 End: 07-03-2022 VITAMIN B1 (THIAMINE), WHOLE BLOOD VITAMIN B1 (THIAMINE), WHOLE BLOOD Lab Routine S/P gastric bypass Postoperative malabsorption Expected: 05/03/2022 (Approximate), Expires: 07/03/2022 [facility] Work Phone: Comment on above: Expected: 05/03/2022 (Approximate), Expi res: 07/03/2022 Start: 12-25-2021 End: 12-17-2022 PH HUERTA INSERT OFF MEDS PH HUERTA INSERT OFF MEDS Endoscopy Routine Regurgitation of food Gastroesophageal reflux disease, unspecified whether esophagitis present Expected: 12/25/2021, Expires: 12/17/2022 [facility] Work Phone: Comment on above: Expected: 12/25/2021, Expires: 3 Start: 10-16-2021 Influenza vaccination [facility] Start: 10-09-2021 End: 12-09-2021 25-hydroxyvitamin D3 [Mass/volume] in Serum or Plasma VITAMIN D 25 HYDROXY Lab Routine S/P laparoscopic sleeve gastrectomy Expected: 10/09/2021, Expires: 12/09/2021 [facility] Work Phone: Comment on above: Expected: 10/09/2021, Expires: 2 Start: 10-09-2021 End: 12-09-2021 Cobalamin (Vitamin B12) [Mass/volume] in Serum or Plasma VITAMIN B12 BLOOD Lab Routine S/P laparoscopic sleeve gastrectomy Expected: 10/09/2021, Expires: 12/09/2021 [facility] Work Phone: Comment on above: Expected: 10/09/2021, Expires: 2 Start: 10-09-2021 End: 12-09-2021 Ferritin [Mass/volume] in Serum or Plasma FERRITIN BLD Lab Routine S/P laparoscopic sleeve gastrectomy Expected: 10/09/2021, Expires: 12/09/2021 [facility] Work Phone: Comment on above: Expected: 10/09/2021, Expires: 2 Start: 10-09-2021 End: 12-09-2021 Folate [Mass/volume] in Serum or Plasma FOLATE SERUM Lab Routine S/P laparoscopic sleeve gastrectomy Expected: 10/09/2021, Expires: 12/09/2021 [facility] Work Phone: Comment on above: Expected: 10/09/2021, Expires: 2 Start: 10-09-2021 End: 12-09-2021 Hemoglobin A1c in Blood HGB A1C Lab Routine S/P laparoscopic sleeve gastrectomy Expected: 10/09/2021, Expires: 12/09/2021 [facility] Work Phone: Comment on above: Expected: 10/09/2021, Expires: 2 Start: 10-09-2021 End: 12-09-2021 Iron and Iron binding capacity panel - Serum or Plasma IRON + TIBC Lab Routine S/P laparoscopic sleeve gastrectomy Expected: 10/09/2021, Expires: 12/09/2021 [facility] Work Phone: Comment on above: Expected: 10/09/2021, Expires: 2 Start: 10-09-2021 End: 12-09-2021 Lipid 1996 panel - Serum or Plasma LIPID PANEL BASIC Lab Routine S/P laparoscopic sleeve gastrectomy Expected: 10/09/2021, Expires: 12/09/2021 [facility] Work Phone: Comment on above: Expected: 10/09/2021, Expires: 2 Start: 10-09-2021 End: 12-09-2021 Parathyrin.intact [Mass/volume] in Serum or Plasma PTH INTACT BLD Lab Routine S/P laparoscopic sleeve gastrectomy Expected: 10/09/2021, Expires: 12/09/2021 [facility] Work Phone: Comment on above: Expected: 10/09/2021, Expires: 2 Start: 10-09-2021 End: 12-09-2021 Thyrotropin [Units/volume] in Serum or Plasma TSH BLD Lab Routine S/P laparoscopic sleeve gastrectomy Expected: 10/09/2021, Expires: 12/09/2021 [facility] Work Phone: Comment on above: Expected: 10/09/2021, Expires: 2 Start: 10-09-2021 End: 12-09-2021 VITAMIN B1 (THIAMINE), WHOLE BLOOD VITAMIN B1 (THIAMINE), WHOLE BLOOD Lab Routine S/P laparoscopic sleeve gastrectomy Expected: 10/09/2021, Expires: 12/09/2021 [facility] Work Phone: Comment on above: Expected: 10/09/2021, Expires: 2 Start: 06-23-2021 End: 06-23-2021 Patient encounter procedure 06/23/2021 Office Visit Sports Medicine Belen Stovall MD [address] [address] [facility] Start: 04-15-2021 COVID-19 VACCINE (3 - Booster for Woo series) COVID-19 VACCINE (3 - Booster for Woo series) [facility] Start: 10-16-2020 Influenza vaccination [facility] Start: 10-17-2019 Influenza vaccination INFLUENZA VACCINE (#1) [employer] [facility] Start: 2019 HPV TESTING HPV TESTING [facility] Start: 2019 Screening for malignant neoplasm of cervix [facility] Start: 2010 PAP TESTING PAP TESTING [facility] Start: 2010 Screening for malignant neoplasm of cervix [facility] Start: 2008 DTaP/Tdap/Td vaccine (1 - Tdap) DTaP/Tdap/Td vaccine (1 - Tdap) [facility] Work Phone: Start: 2008 Hepatitis A Vaccines (1 of 2 - Risk 2-dose series) Hepatitis A Vaccines (1 of 2 - Risk 2-dose series) [facility] Start: 2008 Hepatitis B Vaccine (1 of 3 - 19+ 3-dose series) Hepatitis B Vaccine (1 of 3 - 19+ 3-dose series) [facility] Start: 2008 Hepatitis B Vaccines (1 of 3 - 19+ 3-dose series) Hepatitis B Vaccines (1 of 3 - 19+ 3-dose series) [facility] Start: 2008 Third diphtheria, tetanus and acellular pertussis (DTaP) vaccination TDAP (ADULT) [facility] Start: 2008 Urine microalbumin profile DTAP,TDAP,TD (1 - Tdap) [facility] Start: 2007 ANNUAL PCP TEAM CHRONIC DISEASE VISIT ANNUAL PCP TEAM CHRONIC DISEASE VISIT [facility] Start: 2007 BP CONTROLLED (<130/80) BP CONTROLLED (<130/80) [facility] Start: 2007 HEPATITIS C SCREENING HEPATITIS C SCREENING [facility] Start: 2007 Hepatitis C screening [facility] Start: 2007 HIV SCREENING HIV SCREENING [facility] Start: 2007 HIV screening HIV Screening [facility] Start: 2007 SPIROMETRY SPIROMETRY [facility] Start: 2007 Tetanus vaccination TETANUS [facility] Start: 2004 HIV screening [facility] Start: 2002 HIV screening HIV SCREENING DISCUSSION [employer] [facility] Start: 2002 Varicella vaccination Varicella Vaccines (1 of 2 - 13+ 2-dose series) [facility] Start: 2001 COVID-19 VACCINE (1) COVID-19 VACCINE (1) [employer] [facility] Start: 2001 Depression Screen Depression Screen [facility] Start: 1995 PNEUMOCOCCAL (1 - PCV) PNEUMOCOCCAL (1 - PCV) [facility] Start: 1995 Pneumococcal vaccination Pneumococcal Vaccine (1 - PCV) [facility] Start: 1995 Pneumococcal Vaccine: Pediatrics (0 to 5 Years) and At-Risk Patients (6 to 64 Years) (1 of 2 - PCV) Pneumococcal Vaccine: Pediatrics (0 to 5 Years) and At-Risk Patients (6 to 64 Years) (1 of 2 - PCV) [facility] Start: 1990 MMR Vaccines (1 of 1 - Standard series) MMR Vaccines (1 of 1 - Standard series) [facility] Start: 1990 Varicella vaccination Varicella Vaccines (1 of 2 - 2-dose childhood series) [facility] Start: 1990 Varicella vaccine (1 of 2 - 2-dose childhood series) Varicella vaccine (1 of 2 - 2-dose childhood series) [facility] Start: 1989 HEPATITIS B (1 of 3 - 3-dose series) HEPATITIS B (1 of 3 - 3-dose series) [facility] Start: 1989 Hepatitis B Vaccine (1 of 3 - 3-dose series) Hepatitis B Vaccine (1 of 3 - 3-dose series) [facility] Start: 1989 Hepatitis B Vaccines (1 of 3 - 3-dose series) Hepatitis B Vaccines (1 of 3 - 3-dose series) [facility] Start: 1989 Hepatitis C antibody, confirmatory test HEPATITIS C VIRUS SCREENING [facility] Start: 1989 Hepatitis C screening [facility] [employer] [facility] Start: 1989 HIV screening HIV Screening [facility] Start: 1989 Lipid panel Lipid Panel [facility] Start: 1989 Thyroid stimulating hormone measurement TSH [facility] Start: 1989 TSH Qn TSH [facility] Start: 1989 Yearly Adult Physical Yearly Adult Physical [facility] End: 07-23-2023 ADULT [place] [employer] ADULT [place] [facility] Endoscopy Routine Constipation, unspecified constipation type 1 Occurrences starting 07/22/2022 until 07/23/2023 [facility] Work Phone: Comment on above: 1 Occurrences starting 07/22/2022 until 07/23/2023 End: 03-23-2023 Basic metabolic 2000 panel - Serum or Plasma Basic Metabolic Panel Lab Routine Morning draw (Lab) for 3 Occurrences starting 03/21/2023 until 03/23/2023 [facility] Work Phone: Comment on above: Morning draw (Lab) for 3 Occurrences sta rting 03/21/2023 until 03/23/2023 End: 03-12-2023 CBC panel - Blood by Automated count CBC Lab Routine Morning draw (Lab) for 3 Occurrences starting 03/10/2023 until 03/12/2023, 1 completed [facility] Service Area Work Phone: Comment on above: Morning draw (Lab) for 3 Occurrences sta rting 03/10/2023 until 03/12/2023, 1 completed End: 03-23-2023 CBC panel - Blood by Automated count CBC Lab Routine Morning draw (Lab) for 3 Occurrences starting 03/21/2023 until 03/23/2023 [facility] Area Work Phone: Comment on above: Morning draw (Lab) for 3 Occurrences sta rting 03/21/2023 until 03/23/2023 End: 03-16-2023 CBC W Auto Differential panel - Blood CBC and Auto Differential Lab STAT Once (Lab) for 1 Occurrences starting 03/16/2023 until 03/16/2023 [facility] Area Work Phone: Comment on above: Once (Lab) for 1 Occurrences starting until 03/16/2023 End: 03-16-2023 Comprehensive metabolic 2000 panel - Serum or Plasma Comprehensive metabolic panel Lab STAT STAT (Lab) for 1 Occurrences starting 03/16/2023 until 03/16/2023 [facility] Work Phone: Comment on above: STAT (Lab) for 1 Occurrences starting until 03/16/2023 End: 01-03-2024 Ct angio abd&plvis cntrst mtrl w/wo cntrst img CTA ABD/PEL W IVCON Radiology Routine Generalized abdominal pain 1 Occurrences starting 12/04/2022 until 01/03/2024 [facility] Work Phone: Comment on above: 1 Occurrences starting 12/04/2022 until 01/03/2024 ECG 12 Lead ECG 12 Lead ECG STAT As needed until discontinued starting 06/29/2023 [facility] Work Phone: Comment on above: As needed until discontinued starting ECG 12 Lead ECG 12 Lead ECG STAT 06/29/2023 8:50 PM EDT [facility] Work Phone: End: 01-28-2023 ECG COMPLETE ECG COMPLETE ECG Routine Pre-op evaluation 1 Occurrences starting 01/28/2022 until 01/28/2023 [facility] Work Phone: Comment on above: 1 Occurrences starting 01/28/2022 until 01/28/2023 End: 11-17-2022 EGD - THERAPEUTIC, EUS, OR TUBE INTERVENTIONS EGD - THERAPEUTIC, EUS, OR TUBE INTERVENTIONS Endoscopy Routine Gastroesophageal reflux disease without esophagitis 1 Occurrences starting 11/17/2021 until 11/17/2022 [facility] Work Phone: Comment on above: 1 Occurrences starting 11/17/2021 until 11/17/2022 End: 03-05-2023 EGD - THERAPEUTIC, EUS, OR TUBE INTERVENTIONS EGD - THERAPEUTIC, EUS, OR TUBE INTERVENTIONS Endoscopy Routine Esophageal dysphagia S/P gastric bypass 1 Occurrences starting 03/05/2022 until 03/05/2023 [facility] Work Phone: Comment on above: 1 Occurrences starting 03/05/2022 until 03/05/2023 End: 04-27-2024 EGD - THERAPEUTIC, EUS, OR TUBE INTERVENTIONS EGD - THERAPEUTIC, EUS, OR TUBE INTERVENTIONS Endoscopy Routine Gastroesophageal reflux disease, unspecified whether esophagitis present 1 Occurrences starting 04/28/2023 until 04/27/2024 [facility] Work Phone: Comment on above: 1 Occurrences starting 04/28/2023 until 04/27/2024 End: 10-09-2022 EGD BARIATRIC EGD BARIATRIC Endoscopy Routine Gastroesophageal reflux disease, unspecified whether esophagitis present Bariatric surgery status Class 1 obesity with serious comorbidity and body mass index (BMI) of 31.0 to 31.9 in adult, unspecified obesity type S/P laparoscopic sleeve gastrectomy 1 Occurrences starting 10/09/2021 until 10/09/2022 [facility] Work Phone: Comment on above: 1 Occurrences starting 10/09/2021 until 10/09/2022 End: 10-21-2023 EGD DIAGNOSTIC EGD DIAGNOSTIC Endoscopy Routine Epigastric pain 1 Occurrences starting 10/20/2022 until 10/21/2023 [facility] Work Phone: Comment on above: 1 Occurrences starting 10/20/2022 until 10/21/2023 Electrocardiogram, 12-lead PRN ACS symptoms Electrocardiogram, 12-lead PRN ACS symptoms ECG Routine As needed until discontinued starting 03/05/2023 [facility] Work Phone: Comment on above: As needed until discontinued starting Electrocardiogram, 12-lead PRN ACS symptoms Electrocardiogram, 12-lead PRN ACS symptoms ECG Routine 03/08/2023 10:45 AM EST [facility] Work Phone: Electrocardiogram, 12-lead PRN ACS symptoms Electrocardiogram, 12-lead PRN ACS symptoms ECG Routine As needed until discontinued starting 03/16/2023 [facility] Service Area Work Phone: Comment on above: As needed until discontinued starting Glucose [Mass/volume ] in Serum or Plasma POCT Glucose Point of Care Testing - Docked Device Routine Every 4 hours (Lab) until discontinued starting 03/05/2023, 30 completed [facility] Work Phone: Comment on above: Every 4 hours (Lab) until discontinued s tarting 03/05/2023, 30 completed End: 12-04-2023 Hepatobil syst imag inc gb w/pharma intervenj NM HEPATOBILIARY W EF AND/OR RX Radiology Routine Nausea RUQ pain History of cholecystectomy 1 Occurrences starting 11/04/2022 until 12/04/2023 [facility] Work Phone: Comment on above: 1 Occurrences starting 11/04/2022 until 12/04/2023 End: 03-18-2023 Incentive spirometry Instruct Incentive spirometry Instruct Respiratory Care Routine Once for 1 Occurrences starting 03/18/2023 until 03/18/2023 [facility] Area Work Phone: Comment on above: Once for 1 Occurrences starting 03/18/19 until 03/18/2023 Injx anes celiac ple xus w/wo radiologic monitrng DIAG/THER NRV BLK CELIAC PLEXUS Procedures Routine Chronic pain syndrome Ordered: 01/11/2023 [facility] Work Phone: Comment on above: Ordered: 01/11/2023 End: 06-30-2023 Methicillin resistant Staphylococcus aureus [Presence] in Nose by Organism specific culture Staphylococcus Aureus/MRSA Colonization, Culture Microbiology Routine Once (Lab) for 1 Occurrences starting 06/30/2023 until 06/30/2023 [facility] Work Phone: Comment on above: Once (Lab) for 1 Occurrences starting until 06/30/2023 Patient Education [facility] Work Phone: Patient referral [facility] Work Phone: End: 04-27-2024 PH HUERTA INSERT ON MEDS PH HUERTA INSERT ON MEDS Endoscopy Routine Gastroesophageal reflux disease, unspecified whether esophagitis present 1 Occurrences starting 04/28/2023 until 04/27/2024 [facility] Work Phone: Comment on above: 1 Occurrences starting 04/28/2023 until 04/27/2024 End: 11-18-2022 PH IMPEDANCE INSERT OFF MEDS PH IMPEDANCE INSERT OFF MEDS Endoscopy Routine Gastroesophageal reflux disease without esophagitis S/P laparoscopic sleeve gastrectomy 1 Occurrences starting 11/19/2021 until 11/18/2022 [facility] Work Phone: Comment on above: 1 Occurrences starting 11/19/2021 until 11/18/2022 End: 03-05-2023 Pulse oximetry, continuous Pulse oximetry, continuous Respiratory Care Routine Continuous until discontinued starting 03/05/2023 [facility] Work Phone: Comment on above: Continuous until discontinued starting 0 03/05/2023 End: 06-30-2023 Pulse oximetry, continuous Pulse oximetry, continuous Respiratory Care Routine Continuous until discontinued starting 06/30/2023 [facility] Area Work Phone: Comment on above: Continuous until discontinued starting 0 06/30/2023 End: 10-18-2023 Radiologic exam upr gi trc double contrast study XR UPPER GI ROUTINE DOUBLE CONTRAST/AIR Radiology Routine S/P bariatric surgery Gastroesophageal reflux disease, unspecified whether esophagitis present 1 Occurrences starting 09/18/2022 until 10/18/2023 [facility] Work Phone: Comment on above: 1 Occurrences starting 09/18/2022 until 10/18/2023 SURGICAL PATHOLOGY [facility] Work Phone: Comment on above: Release Upon Ordering for 1 Occurrences starting 12/25/2021, 1 completed Surgical pathology study [facility] Work Phone: Comment on above: Release Upon Ordering for 1 Occurrences starting 03/19/2023, 1 completed End: 03-10-2023 Urethral Catheter Removal Urethral Catheter Removal Procedures Routine Once for 1 Occurrences starting 03/10/2023 until 03/10/2023 [facility] Work Phone: Comment on above: Once for 1 Occurrences starting 03/10/19 until 03/10/2023 End: 07-03-2023 Urethral Catheter Removal Urethral Catheter Removal Procedures Routine Once for 1 Occurrences starting 07/03/2023 until 07/03/2023 [facility] Area Work Phone: Comment on above: Once for 1 Occurrences starting 07/03/19 until 07/03/2023 End: 12-04-2023 US ABD RIGHT UPPER QUADRANT US ABD RIGHT UPPER QUADRANT Radiology Routine Nausea RUQ pain History of cholecystectomy 1 Occurrences starting 11/04/2022 until 12/04/2023 [facility] Work Phone: Comment on above: 1 Occurrences starting 11/04/2022 until 12/04/2023 US ABD RIGHT UPPER QUADRANT US ABD RIGHT UPPER QUADRANT Radiology Routine Nausea RUQ pain History of cholecystectomy 11/04/2022 11:15 AM EDT [facility] Work Phone: End: 12-04-2023 XR KNEE GENERAL 4V AP BOTH/PA BOTH/LAT/MERC RIGHT XR KNEE GENERAL 4V AP BOTH/PA BOTH/LAT/MERC RIGHT Radiology Routine Right knee pain, unspecified chronicity 1 Occurrences starting 11/04/2022 until 12/04/2023 [facility] Work Phone: Comment on above: 1 Occurrences starting 11/04/2022 until 12/04/2023 [facility] OR [facility] Immunizations Immunization Date Immunization Notes Care Provider [facility] 11-12-2022 influenza, injectabl e, quadrivalent, preservative free Deacon Kat MD Work Phone: [facility] 11-12-2022 influenza virus vaccine, unspecified formulation Deacon Kat MD Work Phone: [facility] 11-16-2021 influenza virus [facility], unspecified [facility] 02-18-2021 SARS-CoV-2 (COVID-19 ) mRNA BNT-162b2 vax [place] Comment on above: Result Comment: 2022: TPVALL 01-01-2021 influenza virus vaccine, unspecified formulation [facility] 01-01-2021 influenza, seasonal, injectable Kuldip Yousif MD Work Phone: [facility] 12-25-2020 influenza virus vaccine, unspecified formulation [facility] 12-25-2020 influenza, injectabl e, quadrivalent, preservative free Kuldip Yousif MD Work Phone: [facility] 06-23-2020 COVID-19 Vaccine Woo - Documentation Purposes Only Shanna June Other [facility] Comment on above: Result Comment: 2022: TPVAL 11-28-2018 influenza, seasonal, injectable Shanna June Other [facility] 11-28-2018 influenza virus vaccine, unspecified formulation Agustin Gustafson [facility] 09-21-2016 tetanus toxoid, redu lauren diphtheria toxoid, and acellular pertussis vaccine, adsorbed Kuldip Yousif MD Work Phone: [facility] Payers Date Payer Category Payer Unknown [id number] 2023 Self-pay [id number] 2020 Private Health Insurance [id number] 2020 Private Health Insurance [facility] UMR CHOICE PLUS [id number] 2020-Present [phone] [address] [address] [place] [address] [facility] [id number] 2017 Unknown 2017 Unknown [employer] [id number] 2017-Present [id number]. [id number] 1989 Unknown [id number] 2.16.840.1.491322.3.579.2. 594 1989 Unknown [id number] 2.16.840.1.888262.3.579.2. 594 1989 Unknown [id number] 2.16.840.1.071989.3.579.2. 593 1989 Unknown [id number] 2.16.840.1.405879.3.579.2. 593 1989 Unknown [id number] 2.16.840.1.688861.3.579.2. 593 1989 Unknown [id number] 2.16.840.1.080883.3.579.2. 593 1989 Unknown [id number] 2.16.840.1.475693.3.579.2. 593 1989 Unknown [id number] 2.16.840.1.333901.3.579.2. 593 1989 Unknown [id number] 2.16.840.1.901514.3.579.2. 593 1989 Unknown [id number] 2.16.840.1.786891.3.579.2. 593 1989 Unknown [id number] 2.16.840.1.017826.3.579.2. 593 1989 Unknown [id number] 2.16.840.1.694956.3.579.2. 593 1989 Unknown [id number] 2.16.840.1.895849.3.579.2. 593 1989 Unknown [id number] 2.16.840.1.352394.3.579.2. 593 1989 Unknown [id number] 2.16.840.1.489480.3.579.2. 173 1989 Unknown [id number] 2.16.840.1.871114.3.579.2. 173 1989 Unknown [id number] 2.16.840.1.501643.3.579.2. 173 1989 Unknown [id number] 2.16.840.1.014631.3.579.2. 983 1989 Unknown [id number] 2.16.840.1.057099.3.579.2. 196 1989 Unknown [id number] 2.16.840.1.010493.3.579.2. 182 1989 Unknown [id number] 2.16.840.1.872810.3.579.2. 182 1989 Unknown [id number] 2.16.840.1.264633.3.579.2. 1243 1989 Unknown [id number] 2.16.840.1.548449.3.579.2. 1245 1989 Unknown [id number] 2.16.840.1.418995.3.579.2. 1244 1989 Unknown [id number] 2.16.840.1.139485.3.579.2. 1244 1989 Unknown [id number] 2.16.840.1.513098.3.579.2. 4 1989 Unknown [id number] 2.16.840.1.054846.3.579.2. 1244 1989 Unknown [id number] 2.16.840.1.291182.3.579.2. 1244 1989 Unknown [id number] 2.16.840.1.659307.3.579.2. 1243 1989 Unknown [id number] 2.16.840.1.147075.3.579.2. 1243 1989 Unknown [id number] 2.16.840.1.373613.3.579.2. 1243 1989 Unknown [id number] 2.16.840.1.885586.3.579.2. 1243 1989 Unknown [id number] 2.16.840.1.902562.3.579.2. 1243 1989 Unknown [id number] 2.16.840.1.081217.3.579.2. 1243 1989 Unknown [id number] 2.16840.1.850663.3.579.2. 1243 1989 Unknown [id number] 2.16.840.1.056119.3.579.2. 1243 1989 Unknown [id number] 2.16.840.1.560722.3.579.2. 1258 1989 Unknown [id number] 2.16.840.1.423164.3.579.2. 1258 1989 Unknown [id number] 2.16.840.1.844319.3.579.2. 1258 1989 Unknown [id number] 2.16.840.1.695642.3.579.2. 1989 Unknown [id number] 2.16.840.1.399381.3.579.2. 1989 Unknown [id number] 2.16.840.1.527602.3.579.2. 1989 Unknown [id number] 2.16.840.1.633760.3.579.2. 1989 Unknown [id number] 2.16.840.1.041766.3.579.2. 1989 Unknown [id number] 2.16.840.1.772662.3.579.2 1989 Unknown [id number] 2.16.840.1.361169.3.579.2 1989 Unknown [id number] 2..840.1.267615.3.579.2 1989 Unknown [id number] 2.16.840.1.370182.3.579.2 1989 Unknown [id number] 2.16.840.1.112564.3.579.2 1989 Unknown [id number] 2.16.840.1.733030.3.579.2 1989 Unknown [id number] 2.840.1.509202.3.579.2 1989 Unknown [id number] 2.16.840.1.994126.3.579.2 1989 Unknown [id number] 2..840.1.549361.3.579.2 1989 Unknown [id number] 2.16.840.1.860473.3.579.2 1989 Unknown [id number] 2.840.1.535879.3.579.2 1989 Unknown [id number] 2.16.840.1.712035.3.579.2 1989 Unknown [id number] 2.16.840.1.161150.3.579.2 1989 Unknown [id number] 2.16.840.1.354494.3.579.2 1989 Unknown [id number] 2..840.1.100253.3.579.2 1989 Unknown [id number] 2.16.840.1.960387.3.579.2. 7 1989 Unknown [id number] 2.16.840.1.599505.3.579.2 1989 Unknown [id number] 2.16.840.1.011769.3.579.2. 1989 Unknown [id number] 2.16.840.1.626343.3.579.2 1989 Unknown [id number] 2.16.840.1.345316.3.579.2 1989 Unknown [id number] 2.16.840.1.748056.3.579.2 1989 Unknown [id number] 2.16.840.1.962675.3.579.2 1989 Unknown [id number] 2.16.840.1.681745.3.579.2 1989 Unknown [id number] 2.16.840.1.945756.3.579.2 1989 Unknown [id number] 2.16.840.1.772580.3.579.2 1989 Unknown [id number] 2.16.840.1.107212.3.579.2 1989 Unknown [id number] 2.16.840.1.522268.3.579.2 1959 Unknown [id number] 1.2.840.426290.1.13.239.2. 7.3.822496.315 1959 Unknown [id number] Unknown [id number] 2.16.840.1.346241.3.579.2. 531 Unknown [id number] 2.16.840.1.637212.3.579.2. 531 Unknown [id number] 2.16.840.1.441412.3.579.2. 531 Unknown [id number] 2.16.840.1.349700.3.579.2. 531 Unknown [id number] 2.16.840.1.491047.3.579.2. 531 Unknown [id number] 2.16.840.1.220930.3.579.2. 531 Unknown [id number] 2.16.840.1.988748.3.579.2. 531 Social History Date Type Detail Facility Start: 01-30-2020 End: 01-28-2022 Tobacco smoking status ALIS Never smoker [facility] Start: 01-30-2020 End: 01-28-2022 Tobacco use and exposure Never used [facility] Start: 01-30-2020 End: 11-02-2022 Alcohol intake Current non-drinker of alcohol (finding) [facility] Start: 1989 Sex Assigned At Not on file [facility] Start: 06-08-2021 End: 06-29-2023 Exposure to SARS-CoV-2 (event) Not sure [facility] Start: 05-06-2021 End: 08-26-2023 Alcohol intake Ex-drinker (finding) [facility] Start: 10-16-2019 End: 06-20-2022 History SDOH Financial 5 [facility] Start: 10-16-2019 End: 06-20-2022 History SDOH Food Worry 1 [facility] Start: 10-16-2019 End: 06-20-2022 History SDOH Transport Med 2 [facility] Start: 10-15-2019 Education 18 [facility] Start: 06-17-2022 End: 09-18-2022 Sex Assigned At [facility] Start: 10-04-2021 End: 01-01-2022 Exposure to SARS-CoV-2 (event) Unable to assess [facility] Tobacco smoking status Never [facility] Start: 06-17-2022 End: 09-18-2022 History of Social function [facility] Work Phone: (I/We) worried whemaggie er (my/our) food would run out before (I/we) got money to buy more. Never true [facility] Work Phone: In the past 12 month s, was there a time when you were not able to pay the mortgage or rent on time? No [facility] Work Phone: Do you belong to any clubs or organizations such as yazdanism groups, unions, fraternal or athletic groups, or school groups? Yes [facility] Are you now , , , , never or living with a partner? [facility] How often to you hav e a drink containing alcohol? Never [facility] How hard is it for y ou to pay for the very basics like food, housing, medical care, and heating Somewhat hard [facility] Do you feel stress - tense, restless, nervous, or anxious, or unable to sleep at night because your mind is troubled all the time - these days [OSQ] To some extent [facility] Start: 11-12-2017 Gender identity Identifies as female gender (finding) [facility] How hard is it for y ou to pay for the very basics like food, housing, medical care, and heating Hard [facility] (I/We) worried law er (my/our) food would run out before (I/we) got money to buy more. Sometimes true [facility] Start: 1990 Sex Assigned At Female F [facility] How hard is it for y ou to pay for the very basics like food, housing, medical care, and heating Not very hard [facility] Work Phone: Start: 03-02-2023 Sexual orientation Heterosexual (graham rosado) [facility] Work Phone: Tobacco [facility] Comment on above: denies Tobacco smoking status No Smokin g Status Entered [facility] Do you feel stress - tense, restless, nervous, or anxious, or unable to sleep at night because your mind is troubled all the time - these days [OSQ] Rather much [facility] Work Phone: NEGATED: Highlighted row [facility] Medical Equipment Procedure Code Equipment Code Equipment Origin al Text Equipment Identifier Dates Fibertak Hip Yoanna f Bunch[employer] [place] 1.8mm [id number] Start: 07-10-2021 Fibertak Hip Yoanna f [employer] [place] 1.8mm [id number] Start: 07-10-2021 Fibertak Hip Yoanna f [employer] [place] 1.8mm [id number] Start: 07-10-2021 Fibertak Hip Yoanna f [employer] [place] 1.8mm [id number] Start: 07-10-2021 Membrane, Sepraf ilm, 5 X 6 In - [id number] Start: 03-05-2023 One touch Verio strips for One Touch Verio meter; test 4 times a day [id number] Start: 01-16-2019 End: 03-10-2023 Functional Status Date Assessment Result Facility 07-17-2023 Functional status Patient at Baseline [facility] Work Phone: 05-17-2023 Functional Status N/A [facility] 05-12-2023 Functional Status No [facility] 05-12-2023 Functional Status [facility] 05-11-2023 Functional Status N/A [facility] 05-09-2023 Functional Status N/A [facility] 05-06-2023 Functional Status N/A [facility] 04-02-2023 Functional Status N/A [facility] 03-16-2023 Functional Status N/A [facility] 03-15-2023 Functional Status N/A [facility] 12-31-2022 Functional Status N/A [facility] 10-20-2022 Functional Status N/A [facility] 10-19-2022 Functional Status N/A [facility] 07-29-2022 Functional Status N/A [facility] 06-10-2022 Functional Status N/A [facility] Mental Status Date Assessment Result Facility 07-17-2023 Cognitive function Cognitive Sta tus Patient at Baseline [facility] Work Phone: Clinical Notes 07-09-2019 to 08-31-2023 Marisabel Lynn LPN - 08/31/2023 3:13 PM Carlee Cobb LPN - 08/26/2023 4:24 PM Carlee Cobb LPN - 08/26/2023 4:24 PM Erica Parkinson RN - 08/26/2023 4:12 PM EDT Note Date & Type Note Facility 08-31-2023 Note [facility] 08-31-2023 History of Presen t illness Narrative Name: Abbey Garcia [facility]#: [id number] Date: 08/31/2023 HUERTA 48 HR PH FOLLOW-UP The HUERTA monitor was returned today.. Test data from the monorail crane operator was downloaded. Events from the patient diary were inserted into the study for physician review. .Marisabel Lynn LPN documented in this encounter [facility] 08-26-2023 Nurse Note AMBULATORY PATIENT EDUCATION NOTE TOPIC: GI PROCEDURES: Esophagogastroduodenoscopy(EGD) with or without biopies based on clinical findings, removal of polyps or lesions READINESS TO LEARN INSTRUCTION PROVIDED TO: Patient, readness to learn accessed prior to procedure COGNITIVE ABILITY: Alert and oriented PTED MOTIVATION TO LEARN: Eager FAMILY SUPPORT: None - Unavailable/disinterested IPATIENT LEARNS BEST BY: Individual Instruction Written Instruction - Hand-outs Verbal Instruction FACTORS AFFECTING LEARNING: None PHYSICAL LIMITATIONS AFFECTING LEARNING: None LEARNING RESPONSE METHOD OF INSTRUCTION: Individual instruction PATIENT / FAMILY RESPONSE: Verbalizes understanding of: WORSENING CONDITION-Signs and symptoms of a worsening condition that warrant a call to the physician FOLLOW-UP PLAN: Patient instructed to call with any further issues SUPPLEMENTAL MATERIAL: Procedure Discharge Instructions REFERRAL (RECOMMENDATION): None [facility] 08-26-2023 Nurse Note AMBULATORY PATIENT EDUCATION NOTE TOPIC: GI PROCEDURES: Esophagogastroduodenoscopy(EGD) with or without biopies based on clinical findings, removal of polyps or lesions READINESS TO LEARN INSTRUCTION PROVIDED TO: Patient, readness to learn accessed prior to procedure COGNITIVE ABILITY: Alert and oriented PTED MOTIVATION TO LEARN: Eager FAMILY SUPPORT: None - Unavailable/disinterested IPATIENT LEARNS BEST BY: Individual Instruction Written Instruction - Hand-outs Verbal Instruction FACTORS AFFECTING LEARNING: None PHYSICAL LIMITATIONS AFFECTING LEARNING: None LEARNING RESPONSE METHOD OF INSTRUCTION: Individual instruction PATIENT / FAMILY RESPONSE: Verbalizes understanding of: WORSENING CONDITION-Signs and symptoms of a worsening condition that warrant a call to the physician FOLLOW-UP PLAN: Patient instructed to call with any further issues SUPPLEMENTAL MATERIAL: Procedure Discharge Instructions REFERRAL (RECOMMENDATION): None AMBULATORY PATIENT EDUCATION NOTE TOPIC: GI PROCEDURES: Esophagogastroduodenoscopy(EGD) with or without biopies based on clinical findings, removal of polyps or lesions READINESS TO LEARN INSTRUCTION PROVIDED TO: Patient, readness to learn accessed prior to procedure, Family member, and Patient and family member COGNITIVE ABILITY: Alert and oriented PTED MOTIVATION TO LEARN: Interested FAMILY SUPPORT: None - Unavailable/disinterested IPATIENT LEARNS BEST BY: Individual Instruction Written Instruction - Hand-outs Verbal Instruction FACTORS AFFECTING LEARNING: None PHYSICAL LIMITATIONS AFFECTING LEARNING: None LEARNING RESPONSE METHOD OF INSTRUCTION: Individual instruction PATIENT / FAMILY RESPONSE: Verbalizes understanding of: WORSENING CONDITION-Signs and symptoms of a worsening condition that warrant a call to the physician FOLLOW-UP PLAN: Complete - No need for follow-up SUPPLEMENTAL MATERIAL: Procedure Discharge Instructions REFERRAL (RECOMMENDATION): None Electronically Signed By: Erica Freeman, DEE Patient had a PICC line present on admission to [facility]. PICC line had a brisk blood return and flushed per [facility] policy. Patient tolerated well. PRE OP LEARNING ASSESSMENT PROCEDURE/SURGERY: GI PROCEDURES: EGD READINESS TO LEARN COGNITIVE ABILITY: Alert and oriented MOTIVATION TO LEARN: Interested FAMILY SUPPORT: Unable to assess - Family not present PATIENT LEARNS BEST BY: Individual Instruction FACTORS AFFECTING LEARNING: None PHYSICAL LIMITATIONS AFFECTING LEARNING: None Electronically Signed By: Lisette Newell RN In Department: GASTROENTEROLOGY documented in this encounter [facility] 08-26-2023 Nurse Note AMBULATORY PATIENT EDUCATION NOTE TOPIC: GI PROCEDURES: Esophagogastroduodenoscopy(EGD) with or without biopies based on clinical findings, removal of polyps or lesions READINESS TO LEARN INSTRUCTION PROVIDED TO: Patient, readness to learn accessed prior to procedure, Family member, and Patient and family member COGNITIVE ABILITY: Alert and oriented PTED MOTIVATION TO LEARN: Interested FAMILY SUPPORT: None - Unavailable/disinterested IPATIENT LEARNS BEST BY: Individual Instruction Written Instruction - Hand-outs Verbal Instruction FACTORS AFFECTING LEARNING: None PHYSICAL LIMITATIONS AFFECTING LEARNING: None LEARNING RESPONSE METHOD OF INSTRUCTION: Individual instruction PATIENT / FAMILY RESPONSE: Verbalizes understanding of: WORSENING CONDITION-Signs and symptoms of a worsening condition that warrant a call to the physician FOLLOW-UP PLAN: Complete - No need for follow-up SUPPLEMENTAL MATERIAL: Procedure Discharge Instructions REFERRAL (RECOMMENDATION): None [facility] 08-26-2023 Note [facility] 08-26-2023 History of Presen t illness Narrative Name: Abbey Garcia [facility]#: [id number] Date: 08/26/2023 48hr HUERTA PH CAPSULE PLACEMENT Indications: GERD Testing on meds - , Protonix (pantoprazole) 40 mg, once daily The SCJ was visualized and [...] pass through the body. Patient will return hureta reciever and patient diary in 48 hours. .Marisabel Lynn LPN documented in this encounter [facility] 08-26-2023 Nurse Note Patient had a PICC line present on admission to [facility]. PICC line had a brisk blood return and flushed per [facility] policy. Patient tolerated well. [facility] 08-26-2023 Nurse Note PRE OP LEARNING ASSESSMENT PROCEDURE/SURGERY: GI PROCEDURES: EGD READINESS TO LEARN COGNITIVE ABILITY: Alert and oriented MOTIVATION TO LEARN: Interested FAMILY SUPPORT: Unable to assess - Family not present PATIENT LEARNS BEST BY: Individual Instruction FACTORS AFFECTING LEARNING: None PHYSICAL LIMITATIONS AFFECTING LEARNING: None Electronically Signed By: Lisette Newell RN In Department: GASTROENTEROLOGY [facility] 08-25-2023 Telephone encounter Note Called patient; [facility] in [place] has been removed from Pharmacy list. Patient requests [facility]. Patient's request for medication is as follows: Requested Prescriptions Pending Prescriptions Disp Refills ketamine 5% nasal spray solution (CPD) 12 mL 0 Si.1 mL/spray. Use as directed. 1 spray by nose twice per day x 3 days, then increase to 2 sprays by nose twice per day if tolerated. Added volume to account for dispenser loss. Physician office visit required for refill. naltrexone 1.5 mg capsule (CPD) 60 capsule 1 Sig: Take 1 capsule daily at 9 pm. May increase to 2 capsules if no relief after 2 weeks. Do not use calcium as a bottle filler preparation. If insomnia or vivid dreams occur, then would take capsule at 9 am. Prescription(s) as above. Please process accordingly. Sabina Ibrahim MA [facility] 08-25-2023 Miscellaneous Notes Called patient; [facility] in [place] has been removed from Pharmacy list. Patient requests [facility]. Patient's request for medication is as follows: Requested Prescriptions Pending Prescriptions Disp Refills ketamine 5% nasal spray solution (CPD) 12 mL 0 Si.1 mL/spray. Use as directed. 1 spray by nose twice per day x 3 days, then increase to 2 sprays by nose twice per day if tolerated. Added volume to account for dispenser loss. Physician office visit required for refill. naltrexone 1.5 mg capsule (CPD) 60 capsule 1 Sig: Take 1 capsule daily at 9 pm. May increase to 2 capsules if no relief after 2 weeks. Do not use calcium as a bottle filler preparation. If insomnia or vivid dreams occur, then would take capsule at 9 am. Prescription(s) as above. Please process accordingly. Sabina Ibrahim MA documented in this encounter [facility] 08-23-2023 Telephone encounter Note Doxycycline ordered. Make sure bumper is not tight to skin, there should be 1 cm (1/3 inch) of play. [facility] 08-23-2023 Miscellaneous Notes Doxycycline ordered. Make sure bumper is not tight to skin, there should be 1 cm (1/3 inch) of play. documented in this encounter [facility] 08-20-2023 Telephone encounter Note Patient's called x [address] Kat's recommendations. Returned phone call and advised patient and that I have not heard back from Dr. Kat at this time regarding fixing hernia. Patient reporting new issues with her PEJ tube at this time which is concerning for infection. Reports a hardened pocket around her PEJ tube with increasing amounts of thick, yellow/white purulent drainage. Pocket has grown in size and has become hard to touch over the last few days. Foul odor and redness noted as well. Patient states she is cleaning frequently with alcohol swabs (4-5 times per day). Denies fever. Patient reports generalized fatigue. Patient reports feeling unwell overall, worse than baseline. Patient reports nausea, but this has not increased from her baseline. Advised patient and that I will let Dr. Kat know of this new symptom, but they should report to ED for evaluation of PEJ tube which could be infected. Patient and agreeable to plan and appreciative of call. Serena Neff RN BSN Gas Welder for Dr. Kat [facility] 08-20-2023 Miscellaneous Notes Patient's called x [address] Kat's recommendations. Returned phone call and advised patient and that I have not heard back from Dr. Kat at this time regarding fixing hernia. Patient reporting new issues with her PEJ tube at this time which is concerning for infection. Reports a hardened pocket around her PEJ tube with increasing amounts of thick, yellow/white purulent drainage. Pocket has grown in size and has become hard to touch over the last few days. Foul odor and redness noted as well. Patient states she is cleaning frequently with alcohol swabs (4-5 times per day). Denies fever. Patient reports generalized fatigue. Patient reports feeling unwell overall, worse than baseline. Patient reports nausea, but this has not increased from her baseline. Advised patient and that I will let Dr. Kat know of this new symptom, but they should report to ED for evaluation of PEJ tube which could be infected. Patient and agreeable to plan and appreciative of call. Serena Neff RN BSN Gas Welder for Dr. Kat Staff message sent to Dr. Kat. Patient's phoned me to discuss [place]. States [place] is having severe, debilitating abdominal pain. States it feels like a knife is turning in her abdomen and she is unable to do anything until the pain subsides. Pt often dry heaves as well, which increases her pain significantly. Patient is currently scheduled to be evaluated by intestinal rehab team on 10/12, but states this is too far out, as he is taking [place] to the hospital 1-2 times per week for fear of obstruction and management of her severe abdominal pain. Asked if pt was on waiting list and if they had the number to reach the intestinal rehab schedulers. confirms they are on waiting list and they have the number. Understands it is a busy service, but struggling with waiting 2 more months while [place] is in pain. requesting to speak with Dr. Kat about potentially repairing hernia and taking down adhesions in an attempt to solve her pain issues. Advised that I would forward his requests and concerns to Dr. Kat. Serena Neff SENIOR PACKAGING ENGINEER Gas Welder for Dr. Kat documented in this encounter [facility] 08-18-2023 Telephone encounter Note Staff message sent to Dr. Kat. [facility] 08-18-2023 Telephone encounter Note Patient's phoned me to discuss [place]. States [place] is having severe, debilitating abdominal pain. States it feels like a knife is turning in her abdomen and she is unable to do anything until the pain subsides. Pt often dry heaves as well, which increases her pain significantly. Patient is currently scheduled to be evaluated by intestinal rehab team on 10/12, but states this is too far out, as he is taking [place] to the hospital 1-2 times per week for fear of obstruction and management of her severe abdominal pain. Asked if pt was on waiting list and if they had the number to reach the intestinal rehab schedulers. confirms they are on waiting list and they have the number. Understands it is a busy service, but struggling with waiting 2 more months while Abbey is in pain. requesting to speak with Dr. Kat about potentially repairing hernia and taking down adhesions in an attempt to solve her pain issues. Advised that I would forward his requests and concerns to Dr. Kat. Serena Neff SENIOR PACKAGING ENGINEER Gas Welder for Dr. Kat T [facility] 08-12-2023 Telephone encounter Note GI Pre-Procedure Spoke with patient: Yes Confirmed date scheduled and patient report time: Yes Procedure Planned:Huerta insert Esophagogastroduodenoscopy(EGD) for control of bleeding,dilation(any means),imaging,tube placement Is the patient on blood thinners?no Procedure Instructions given to patient: Yes, and they verbalized their understanding of instructions given Patient instructed to have family/friend present for procedure transport home:Patient/patient outside dealer sales representative was told that if they [...] area. 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 Type of instruction given: Verbal by telephone contact. Radha Osman MA [facility] 08-12-2023 Miscellaneous Notes GI Pre-Procedure Spoke with patient: Yes Confirmed date scheduled and patient report time: Yes Procedure Planned:Huerta insert Esophagogastroduodenoscopy(EGD) for control of bleeding,dilation(any means),imaging,tube placement Is the patient on blood thinners?no Procedure Instructions given to patient: Yes, and they verbalized their understanding of instructions given Patient instructed to have family/friend present for procedure transport home:Patient/patient outside dealer sales representative was told that if they [...] area. 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 Type of instruction given: Verbal by telephone contact. Radha Osman MA documented in this encounter [facility] 08-09-2023 History of Presen t illness Narrative Images from the original note were not included. SUBJECTIVE: The patient presents to [facility] Pain Management Department for a follow-up appointment [...] reviewed by the physician Ms. Garcia called Andres & was told that medications will not [...] re: [place] vs. different [place] location vs. [id number] online to try She previously tried gabapentin, elavil in the past (some small benefit) but had elevated QT She is patient of Dr. Magaña s/p MAL release with some benefit. She [...] spray continued (problem with in stock at [facility]) Return to clinic (in-person office visit or virtual visit/telemedicine) after all above completed fully. I spent a total of 25 minutes on the date of the service which included: *preparing to see the patient *[id number] patient care *completing clinical documentation *obtaining and/or [...] August 05, 2023 documented in this encounter [facility] 08-09-2023 Note [facility] 08-06-2023 Note [facility] 08-06-2023 Note HNO ID: [id number] Author: MARIA TERESA MURILLO MD Service: Hospital Medicine Author Type: Physician Type: Plan of Care Filed: 08/06/2023 11:50 Note Text: To review with pulmonology [facility] 08-05-2023 Note [facility] 08-05-2023 Telephone encounter Note Requested Prescriptions Pending Prescriptions Disp Refills ketamine 5% nasal spray solution (CPD) 12 mL 0 Si.1 mL/spray. Use as directed. 1 spray by nose twice per day x 3 days, then increase to 2 sprays by nose twice per day if tolerated. Added volume to account for dispenser loss. Physician office visit required for refill. [facility] 08-05-2023 Miscellaneous Notes Requested Prescriptions Pending Prescriptions Disp Refills ketamine 5% nasal spray solution (CPD) 12 mL 0 Si.1 mL/spray. Use as directed. 1 spray by nose twice per day x 3 days, then increase to 2 sprays by nose twice per day if tolerated. Added volume to account for dispenser loss. Physician office visit required for refill. documented in this encounter [facility] 08-05-2023 Note [facility] 08-04-2023 Note [facility] 08-04-2023 Note [facility] 08-04-2023 Note [facility] 08-04-2023 Telephone encounter Note Lucie from [facility] pharmacy calling regarding RX just sent in for Ketamine. He states that is not something they have or can help with at [facility]. States maybe a compounding pharmacy. So RX unavailable. [facility] 08-04-2023 Miscellaneous Notes Lucie from [facility] pharmacy calling regarding RX just sent in for Ketamine. He states that is not something they have or can help with at [facility]. States maybe a compounding pharmacy. So RX unavailable. documented in this encounter [facility] 08-04-2023 History of Presen t illness Narrative Follow up Visit Patient Name: Abbey Garcia MR #: [id number] Age: [age] year old Date: August 03, [...] SD worse than population and warrants attention Zone Maintenance Technician:Nathalie Reed MA The patient is a 33-year-old [...] it because of the absence of Dr. Richard She presents today with exacerbated abdominal pain associated with nausea and vomiting. The pain is affecting the whole abdomen. No specific precipitating or relieving factor On exam alert oriented pleasant white female in no acute distress. Vital signs stable. Head normocephalic with no evidence of trauma. Neck is supple with no JVD. Abdominal exam reveals a soft abdomen. Patient has remarkable tenderness Knox to palpation even for very light palpation [...] her next visit documented in this encounter [facility] 08-04-2023 Note [facility] 07-20-2023 Note [facility] 07-19-2023 Note [facility] 07-18-2023 Note [facility] 07-17-2023 Consult note Note Date/Time July 17, 2023 1:56p [facility] ENTER [address] [place] [address] General Surgery Consult Note Signed Patient: Abbey Garcia MR#: [id number] : 1990 Acct:[id number] Age/Sex: 33 / F Adm Date: 4 Loc: 4N Room: 3S1814-2 Type: ADM IN Attending Dr: Camden Rodriguez DO Copies to: MD Thomas Jordan MD Yazid Hussein, DO~ History of Present Illness Date of consult: 07/17/2023 Requesting/Attending Provider: Camden Rodriguez DO History of present illness: The patient is a 33-year-old female admitted with nausea and vomiting. Patient had Tan-en-Y gastric bypass procedure done 2021 at [facility]. In 2020, she had had a gastric [...] scheduled to have a procedure done at [facility] in the near future. CT scan here showed:IMPRESSION: Fluid-filled distal small bowel loops without gross distention. Developing small bowel obstruction cannot be excluded Currently, patient has some nausea and some upper abdominal discomfort.. Review of Systems Constitutional Constitutional: Denies fever(s) Cardiovascular Cardiovascular: Denies chest pain Respiratory Respiratory: Denies dyspnea Gastrointestinal Gastrointestinal: Reports abdominal pain, Reports nausea and Reports vomiting [facility] Medical History Encounter for PEG (percutaneous endoscopic [...] clean-up per request of Phys. EHR Cmte Surgical History History of gastric bypass 01/2022 [...] 15 Mg Tablet) 15 mg PO TID [facility] Stop: 07/16/24 13:59 Dextrose (Dextrose 50% In Water 25 Gm/50 Ml Syringe) 0 gm IV-PUSH PRN PRN PRN Reason: Hypoglycemia Stop: 07/16/24 11:08 Enoxaparin Sodium (Enoxaparin 40 Mg/0.4 Ml Syringe) 40 mg SUBCUT DAILY@10 [facility] Stop: 07/16/24 09:59 Last Admin: 07/17/23 11:23 Dose: 40 mg Escitalopram Oxalate (Escitalopram 20 Mg Tablet) 20 mg PO DAILY [facility] Stop: 07/16/24 08:59 Last Admin: 07/17/23 11:21 Dose: 20 mg Glucose (Dextrose 40% Gel 15 Gm Tube) 0 gm PO PRN PRN PRN Reason: Hypoglycemia Stop: 07/16/24 11:08 Sodium Chloride (0.9% Sodium Chloride 1,000 Ml) 1,000 mls @ 100 mls/hr IV .[id number] Stop: 07/18/24 08:59 Potassium Chloride 20 meq/ [...] @ 63.008 mls/hr IV DAILY@1800 [facility]; Protocol Stop: 07/16/24 17:59 Fat Emulsion Intravenous 250 (ml/ IV Miscellaneous Supplies) 250 mls @ 21 mls/hr IV MOWEFR@1800 [facility] Stop: 07/18/24 17:59 Levothyroxine Sodium (Levothyroxine 75 Mcg Tablet) 75 mcg PO DAILY@0630 [facility] Stop: 07/17/24 06:29 Liothyronine Sodium (Liothyronine 5 Mcg Tablet) 5 mcg PO DAILY [facility] Stop: 07/16/24 08:59 Last Admin: 07/17/23 11:21 Dose: 5 mcg Methocarbamol (Methocarbamol 500 Mg Tablet) 500 mg PO BID [facility] Stop: 07/16/24 08:59 Last Admin: 07/17/23 11:21 Dose: 500 mg Metoclopramide HCl (Metoclopramide 10 Mg Tablet) 10 mg PO TID.AC [facility] Stop: 07/16/24 11:29 Last Admin: 07/17/23 11:21 Dose: 10 mg Mirtazapine (Mirtazapine 30 Mg Tablet) 30 mg PO HS [facility] Stop: 07/16/24 21:59 Morphine Sulfate (Morphine Sulfate [...] 40 Mg Vial) 40 mg IV-PUSH DAILY [facility] Stop: 07/16/24 08:59 Last Admin: 07/17/23 11:22 Dose: 40 mg Polyethylene Glycol (Polyethylene Glycol 3350 17 Gm Powd.Pack) 17 gm PO BID PRN PRN Reason: constipation Stop: 07/16/24 09:07 Prednisone (Prednisone 5 Mg Tablet) 5 mg PO DAILY [facility] Stop: 07/17/24 08:59 Sodium Chloride (Sodium Chloride [...] Appearance Clear, Urine pH 7.5, Ur Specific Bayside 1.006, Urine Protein Negative, Urine Glucose (UA) [...] % (Auto) 75.6, Lymph % (Auto) 18.7, Sunflower % (Auto) 4.5, Eos % (Auto) 0.5, Baso % (Auto) 0.7, Nucleat RBC Rel Count 0.0, Neut # (Auto) 5.2, Lymph # (Auto) 1.3, Sunflower # (Auto) 0.3, Eos # (Auto) 0.0, [...] being actively seen by her surgeon at [facility] for her GI issues status post gastric bypass surgery. Transfer to [facility] is pending. Patient currently does not have [...] times. Documented By: Keven Kimbrough MD 07/17/23 1350 Signed By: <Electronically signed by MD Keven Kimbrough> 07/17/23 1721 [facility] Work Phone: 1(144) 958-707406-01-2024 History and physical note Author Camden Rodriguez [facility] July 17, 2023 11:19am Note Date/Time July 17, 2023 11:19 am [facility] [address] [place] [address] Hospitalist H&P Signed Patient: Abbey Garcia MR#: [id number] : 1990 Acct:[id number] Age/Sex: 33 / F Adm Date: 4 Loc: 4N Room: 2C8234-7 Type: ADM IN Attending Dr: Camden Rodriguez [...] negative unless noted below or in HPI [facility] Medical History Encounter for PEG (percutaneous endoscopic [...] clean-up per request of Phys. EHR Cmte Surgical History History of gastric bypass 01/2022 [...] % (Auto) 18.7 % (.) 07/16/23 15:10 Sunflower % (Auto) 4.5 % (.) 07/16/23 15:10 Eos % (Auto) 0.5 % (.) 07/16/23 15:10 Baso % (Auto) 0.7 % (.) 07/16/23 15:10 Nucleat RBC Rel Count 0.0 /100 WBC (0-0.5) 07/16/23 15:10 Neut # (Auto) 5.2 x10E3/uL (1.8-7.7) 07/16/23 15:10 Lymph # (Auto) 1.3 x10E3/uL (1.00-4.8) 07/16/23 15:10 Sunflower # (Auto) 0.3 x10E3/uL (0.0-0.8) 07/16/23 15:10 [...] pH 7.5 (5.0-9.0) 07/16/23 15:21 Ur Specific Bayside 1.006 (1.001-1.030) 07/16/23 15:21 Urine Protein Negative [...] by Camden Rodriguez DO> 07/17/23 1119 [facility] Work Phone: 1(137) 442-753505-30-2024 [facility]Bar[facility] Telephone encounter Note* Telephone Encounter [...] have family/friend present for procedure transport home:Patient/patient outside dealer sales representative was told that if they [...] area. 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 Type of instruction given: Verbal by telephone contact. Natalie Alarcon LPN [facility]05-28-2024 Miscellaneous Notes* Telephone Encounter - Natalie Shirley [...] have family/friend present for procedure transport home:Patient/patient outside dealer sales representative was told that if they [...] area. 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 Type of instruction given: Verbal by telephone contact. Natalie Alarcon LPN documented in this [facility]05-28-2024 Note [id number] 07-09-2023 NoteHNO ID: [id number] Author: PABLO LEBRON PSYD Service: ? Author Type: Psychologist Type: Progress Notes Filed: 07/09/2023 09:26 Note Text: Assessment was conducted virtually. Patient is a resident of [place], and completed the assessment virtually in [place]. Psychologist is licensed and stationed in [place]. Informed consent was discussed and verbal assent [...] exercise, positive self-talk). Sources of support (, ypwpmu-cq-yrp, brothers, grandfather). OBJECTIVE: Utilized cognitive behavioral and [...] positive self-talk) and sources of support (, qmlvfg-yo-dkk, brothers, grandfather). Pt requests to end session early due to childcare needs. 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 Approximately 15 minutes were spent with the patient doing therapy. [facility] History of Present illness Narrative* Pablo Lebron, [facility] - 07/09/2023 8:57 AM EDT Assessment was conducted virtually. Patient is a resident of [place], and completed the assessment virtually in [place]. Psychologist is licensed and stationed in [place]. Informed consent was discussed and verbal assent [...] exercise, positive self-talk). Sources of support (, subvec-lk-aph, brothers, grandfather). OBJECTIVE: Utilized cognitive behavioral and [...] positive self-talk) and sources of support (, cvvawt-oe-its, brothers, grandfather). Pt requests to end session early due to childcare needs. 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 Approximately 15 minutes were spent with the patient doing therapy. Pablo Lebron PsyD documented in this encounterTr[facility]05-21-2024 [facility]Bar[facility]05-[facility]-2024 Nurse Note* Rosanna Blanco OCCA - 07/06/2023 1:55 PM EDT Post Void Residual done on patient with 8 cc residual volume remaining. notified. ALLISON Schreiber [facility]05-21-2024 Nurse Note* Rosanna Blanco OCCA - 07/06/2023 1:55 PM EDT Post Void Residual done on patient with 8 cc residual volume remaining. MD notified. ALLISON Schreiber documented in this encounterTrumbull [facility]05-21-2024 History of Present illness Narrative* Francisco J Steve MD - 07/06/2023 1:40 PM EDT [facility] F[facility] PELVIC MEDICINE AND RECONSTRUCTIVE SURGERY PATIENT HISTORY AND PHYSICAL EXAM PATIENT INFO: Abbey Garcia is a 33 year old female. REFERRING M.D.: Marcos Moreno [address] [place] [address] [place] [address] Moreno for an [...] having recent UTI, that was treated at [facility] (although no records seen of this) and that she required a long catheter for two weeks due to high amounts in her bladder. No recent dysuria or hematuria. Does endorse some left flank pain. History of three C-sections, no vaginal deliveries QUESTIONNAIRE: Questionnaire: Health System Ambulatory Visit Intake Questionnaire Question Answer Have [...] information you will be given? No Questionnaire: f Health System Additional Demo Question Answer Is this visit related to an accident, other than Workers' Compensation? No Is this visit related to Workers' Compensation? No Do you need an gettering operator? No Questionnaire: [facility] Female Pelvic Medicine Base Question Answer [...] lower abdominal or genital area? 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 [...] Level: 4 - Moderate documented in this encounterTrumbull [facility]05-21-2024 NoteBarney [facility]05-18-2024 Nurse Note* Tory Mcmullen RN - 07/03/2023 2:27 PM EDT Reviewed discharge with patient, all questions answered, aware of appointments ride downstairs. Pegfeedings stopped and flushed prior to clamping. Patient TPN stopped PICC flushed patient to leave with PICC [facility]05-18-2024 Nurse Note* Tory Mcmullen RN [...] lumen picc, per patient was placed at [facility] about a month ago for TPN [...] call light within reach. documented in this [facility] Work Phone: 1(500) 649-587905-18-2024 Nurse Note* Tory Mcmullen RN - 07/03/2023 2:11 PM EDT Long removed per orders, discharge prepared at this time. [facility] Work Phone: 1(276) 967-656105-18-2024 History of Present illness Narrative* Dolores Cox MD - 07/03/2023 12:22 PM EDT Abbey Garcia is a 33 y.o. female on day 3 of admission presenting with Epigastric pain. Subjective She presented to the hospital with abdominal pain. She had previously undergone laparoscopic sleeve gastrectomy, on 09/03/2020 at the [facility]. She has a gastrojejunostomy tube. She states [...] medication and antiemetic. Follow up at [facility] for [facility] rehab. Dolores Cox MD * Fadumo Edge RDN, SALVADOR - 07/02/2023 2:23 PM EDT Nutrition Progress Note MD messaged [facility] for tube feed recommendations. Pt is now receiving tube feed and TPN. Nutrition Interventions and Recommendations: Nutrition Prescription: Individualized Nutrition Prescription Provided for : 0961-2277 kcals, 59-71 gm protein via parentaland enteral [...] home. Patient was active with RN from [facility] prior to admission. Patient would like to continue with their services post discharge. External referral already placed and sent to [facility]. [facility] will need to be notified via [facility]Port at the time of discharge. Will follow. 07/02/23 1049 Discharge Planning Home or Post Acute Services In home services Type of Home Care Services Home nursing visits Patient expects to be discharged to: Home with [facility] Does the patient need discharge [...] line position verification COMPARISON: 03/17/2023 ACCESSION NUMBER(S): [id number] ORDERING CLINICIAN: DOLORES COX TECHNIQUE: Single AP view chest FINDINGS: Cardiomediastinal silhouette is within normal limits. Right-sided PICC line identified with tip in the region of the mid SVC. No infiltrate or effusion is identified. Visualized osseous structures unremarkable. Impression: 1. Right PICC line placement with tip in the mid SVC. 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 Morel at [facility] for intestinal rehab Start trickle TF today Continue TPN Stop tramadol, switch to percocet as patient has been on this in the past Continue IV morphine for breakthrough pain Zofran PRN Asthma Stable, not in exacerbation HTN Stable Hypothyroidism Continue home synthroid GERD Continue PPI Dispo: if patient is tolerating TF and symptoms are improved tomorrow, will plan to discharge home with [facility]. Kina Ann MD * Shelley Nash, SLIM-BLASTING MACHINE OPERATOR - 07/01/2023 2:37 PM EDT Abbey Garcia [...] GI rehab program as previously recommended at [facility]. GS will sign off. I spent 15 minutes in the professional and overall care of this patient. JAMA Greenberg * Zoey Blanco RN - 07/01/2023 12:50 PM EDT Patient not medically clear. TCC met with patient to discuss discharge plans. Patient active with [facility] and would like to continue with RN only. External referral already placed andclinicals sent to agency through [facility]. They have accepted patient. Will follow. 07/01/23 1250 Discharge Planning Home or Post Acute Services In home services Type of Home Care Services Home nursing visits Patient expects to be discharged to: Home with [facility] Does the patient need discharge transport arranged? No Patient Choice Provider Choice list and CMS website (https://medicare.gov/care-compare#search) for post-acute Quality and Resource Measure Data were provided and reviewed with: Patient Patient / Family choosing to utilize agency / facility established prior to hospitalization Yes * JAMA Lynn - 07/01/2023 11:49 AM EDT Abbey Garcia [...] 75 mL/hr, Last Rate: 75 mL/hr (07/01/23 0804) PRN medications PRN medications: acetaminophen OR acetaminophen, albuterol, alteplase, dextrose, dextrose, glucagon, glucagon, hydrOXYzine HCL, ondansetron, sodium chloride 0.9%, traMADol Vascular US mesenteric artery duplex complete Result Date: 07/01/[address] [address] Vascular Lab Report [facility] US MESENTERIC ARTERY DUPLEX COMPLETE Patient Name: ABBEY GARCIA Reading Physician: Brandy Magaña MD Study Date: 06/30/2023 Ordering Provider: [id number] JAMIL Sandy ROMAINE MRN/PID: [id number] Fellow: Technologist: Leia Degroot RVT Date of /Age: 2 1990 / 33 years Technologist 2: Gender: F Admission Status: Inpatient Location Performed: [facility] 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 COMPARISON: 03/16/2023 ACCESSION NUMBER(S): [id number] ORDERING CLINICIAN: DAVID VALADEZ TECHNIQUE: Axial CT [...] Fly West 06/29/2023 11:53 PM Dictation workstation: [id number] CT abdomen pelvis w IV contrast Result Date: 06/18/2023 * * *Final Report* * * DATE OF EXAM: Jun 18 2023 2:07PM [facility] 0530 - CT ABD/PEL W IVCON / [...] Trace ascites, also present on previous exams Solar Lab Technician: JUANCARLOS Transcribe Date/Time: Jun 18 2023 3:00P Dictated [...] PROCESS. NO SIGNIFICANT INTERVAL CHANGE SINCE 12/06/2022. Solar Lab Technician: JUANCARLOS Transcribe Date/Time: Jun 06 2023 7:08P Dictated [...] vascular cause. Recommend following up with the [facility] for intestinal rehab as recommended by her [...] laparoscopic sleeve gastrectomy, on 09/03/2020 at the [facility]. She has a gastrojejunostomy tube. She states [...] RN - 06/30/2023 4:41 PM EDT 06/30/23 1468 Physical Activity On average, how many days [...] relatives? Twice How often do you attend yazdanism or gnosticism services? More than 4 Do you belong to any clubs or organizations such as yazdanism groups, unions, fraternal or athletic groups, or [...] In the past 12 months has the [employer], gas, oil, or water [employer] threatened to shut off services in your [...] laparoscopic sleeve gastrectomy, on 09/03/2020 at the [facility]. She had a gastrojejunostomy tube. She states [...] for Epigastric pain. Pharmacy reviewed the patient's kbage-pe-lafhyvhxt medications and allergies for accuracy. Medications ADDED: Methocarbamol 750 mg TID Medications CHANGED: Buspirone 10 mg Mirtazapine 30 mg Miralax Topiramate 100 mg Medications REMOVED: Diazepam 5 mg Percocet 5 mg/325 mg The list below reflects the updated PRINTED CIRCUIT BOARD PREASSEMBLER list. Comments regarding how patient may be [...] Low Nausea/vomiting Pharmacy has been updated to [facility]. Sources used to complete the med history include patient interview, PRINTED CIRCUIT BOARD PREASSEMBLER list, dispense history Below are additional concerns with the patient's PRINTED CIRCUIT BOARD PREASSEMBLER list. -Pt is no longer taking diazepam or Percocet -Added methocarbamol 750 mg TID -Buspirone, mirtazapine, Miralax and topiramate doses have changed Mariela Tesfaye PharmD Please reach out via [employer] Secure Chat for questions * Sherry Magaña [...] Dr. Deacon Kat, her general surgeon at [facility]. The plan from them is a referralto [facility] intestinal rehabilitation. Patient to follow up with Dr. Kats office. 06/30/23 at 8:28 AM - Sherry Magaña MD Addendum: There is conclusively no vascular etiology for patient's current pain syndrome. Needs to be referred ultimately to Dr. Deacon Kat and Intestinal Rehab unit at [facility] after stabilization. Duplex shows no compression of celiac axis or internal lesions. There is no stenosis of the celiac axis or SMA. CTA reviewed. No vascular compression documented in this [facility] Work Phone: 1(645) 499-756605-18-2024 Plan of care note* Care Plan - [...] dressing change Outcome: Progressing Flowsheets (Taken 07/03/2023 105) Decreased wound size/increased tissue granulation at next dressing change: Protective dressings over bony prominences Goal: Participates in plan/prevention/treatment measures Outcome: Progressing Flowsheets (Taken 07/03/2023 1056) Participates in plan/prevention/treatment measures: Elevate heels Increase activity/out of bed for meals Goal: Prevent/manage excess moisture Outcome: Progressing Flowsheets (Taken 07/03/2023 105) Prevent/manage excess moisture: Cleanse incontinence/protect with barrier cream Moisturize dry skin Goal: Prevent/minimize sheer/friction injuries Outcome: Progressing Flowsheets (Taken 07/03/2023 105) Prevent/minimize sheer/friction injuries: Increase activity/out of bed [...] monitored and maintained or improved Outcome: [facility]ing [facility] Work Phone: 1(828) 720-254605-18-2024 Miscellaneous Notes* Care Plan - Tory Mcmullen [...] plan/prevention/treatment measures Outcome: Progressing Flowsheets (Taken 07/03/2023 105) Participates in plan/prevention/treatment measures: Elevate heels Increase activity/out of bed for meals Goal: Prevent/manage excess moisture Outcome: Progressing Flowsheets (Taken 07/03/2023 1056) Prevent/manage excess moisture: Cleanse incontinence/protect with barrier cream Moisturize dry skin Goal: Prevent/minimize sheer/friction injuries Outcome: Progressing Flowsheets (Taken 07/03/2023 105) Prevent/minimize sheer/friction injuries: Increase activity/out of bed [...] improved Outcome: Progressing * Care Plan - Grecai Schaffer RN - 07/02/2023 11:42 PM EDT [...] improved Outcome: Progressing * Care Mallory - Mayda Balbuena LPN - 06/30/2023 10:12 [...] no hearing aids. Her PCP is in [facility]; and she uses [facility] [address] in [facility]. She has a hx of gastric bypass, c/o abd pain. No anticipated discharge needs. DISCHARGE PLAN: HOME WITH documented in [facility] Work Phone: 1(142) 825-829805-18-2024 Nurse Note* Tory Mcmullen RN - 07/03/2023 8:16 AM EDT Assumed care of patient at this time, patient is resting in bed with brake in place and call light in reach denies any needs [facility] Work Phone: 1(700) 576-479605-18-2024 Nurse Note* Grecia Schaffer RN - 07/03/2023 6:49 AM EDT Chg bath performed by this nurse. Gown and linens changed. Pt ambulated to the bathroom, pt reportsliquid dark, black stool ( not witnessed by nurse). T [facility]05-17-2024 Plan of care note* Care Plan - [...] did make progress toward the following goals. T [facility] Work Phone: 1(151) 222-798105-17-2024 Nurse Note* Yue Ferris RN - 07/02/2023 12:00 PM EDT Upon rounding right upper arm dual lumen PICC with current CHG dressing dry and intact. One port inuse, one with brisk blood return and flushes easily, clamped and Curos cap intact. T [facility]05-16-2024 Plan of care note* Care [...] monitored and maintained or improved Outcome: Progressing [facility]05-16-2024 Nurse Note* Edilia Darby RN - 07/01/2023 1:56 PM EDT CXR from today verifies picc tip in mid SVC. [facility]05-16-2024 Nurse Note* Edilia Darby RN - 07/01/2023 12:48 PM EDT Patient with Rt arm dual lumen picc, per patient was placed at [facility] about a month ago for TPN [...] tip placement is needed. RN to message [facility] Work Phone: [phone]) 184-748505-16-2024 Consult note* Fadumo Edge RDN, [place] - [...] renal failure superimposed on chronic kidney disease ([facility]) 06/29/2023 Anxiety Arthritis Asthma ([facility]) CPAP (continuous positive airway pressure) dependence Depression Disease of thyroid gland Dizziness GERD (gastroesophageal reflux disease) Hypothyroidism Irritable bowel syndrome with constipation Median arcuate ligament syndrome ([facility] PCOS (polycystic ovarian syndrome) PONV (postoperative nausea [...] 75 mL/hr, Last Rate: 75 mL/hr (07/01/23 683) Dietary Orders (From admission, onward) Start Ordered 06/30/231747 May Participate in Room Service Once Question: . Answer: Yes 06/30/23174724 0227 NPO Diet Except: Sips with meds; Effective now Diet effective now Question: Except: Answer: Sips with meds 06/30/23 0230 Nutrition Support Intake provides: 1420 kcals, 100 gm protein, 2000 mL total volume Estimated Needs: Estimated Energy Needs Total Energy Estimated Needs (kCal): (8210-6885) Total Estimated Energy Need per Day (kCal/kg): (25-30) Method for Estimating Needs: ABW Estimated Protein Needs Total Protein Estimated Needs (g): (59-71) Total Protein Estimated Needs (g/kg): (1-1.2) Method for Estimating Needs: ABW Estimated Fluid Needs Total Fluid Estimated Needs (mL): (5523-5961) Method for Estimating Needs: 1 mL/kcal Nutrition Diagnosis Nutrition Diagnosis: Nutrition Diagnosis Patient has Nutrition Diagnosis: Yes Diagnosis Status (1): New Nutrition Diagnosis 1: Altered GI function Related to (1): physiological causes As Evidenced by (1): need for TPN, cannot tolerate PO/ tube feed Nutrition Interventions/Recommendations Nutrition Interventions and Recommendations: Nutrition Prescription: Individualized Nutrition Prescription Provided for : 9349-5279 kcals, 59-71 gm protein via parentalnutrition Nutrition [...] Needed?: 3-5 days Follow up Comment: 07/05/23 [facility] Work Phone: [phone] 176-722805-16-2024 Consult note* Fadumo Edge RDN, LD - [...] renal failure superimposed on chronic kidney disease ([facility]) 06/29/2023 Anxiety Arthritis Asthma ([facility]) CPAP (continuous positive airway pressure) dependence Depression Disease of thyroid gland Dizziness GERD (gastroesophageal reflux disease) Hypothyroidism Irritable bowel syndrome with constipation Median arcuate ligament syndrome ([facility]) PCOS (polycystic ovarian syndrome) PONV (postoperative nausea [...] 75 mL/hr, Last Rate: 75 mL/hr (07/01/23 9034) Dietary Orders (From admission, onward) Start Ordered 06/30/231747 May Participate in Room Service Once Question: . Answer: Yes 06/30/23174706/30/23 022 NPO Diet Except: Sips with meds; Effective now Diet effective now Question: Except: Answer: Sips with meds 06/30/23 0230 Nutrition Support Intake provides: 1420 kcals, 100 gm protein, 2000 mL total volume Estimated Needs: Estimated Energy Needs Total Energy Estimated Needs (kCal): (2917-1473) Total Estimated Energy Need per Day (kCal/kg): (25-30) Method for Estimating Needs: ABW Estimated Protein Needs Total Protein Estimated Needs (g): (59-71) Total Protein Estimated Needs (g/kg): (1-1.2) Method for Estimating Needs: ABW Estimated Fluid Needs Total Fluid Estimated Needs (mL): (0964-1419) Method for Estimating Needs: 1 mL/kcal Nutrition Diagnosis Nutrition Diagnosis: Nutrition Diagnosis Patient has Nutrition Diagnosis: Yes Diagnosis Status (1): New Nutrition Diagnosis 1: Altered GI function Related to (1): physiological causes As Evidenced by (1): need for TPN, cannot tolerate PO/ tube feed Nutrition Interventions/Recommendations Nutrition Interventions and Recommendations: Nutrition Prescription: Individualized Nutrition Prescription Provided for : 7910-2443 kcals, 59-71 gm protein via parentalnutrition Nutrition [...] for which she follows a surgeon at [facility]. They have been trying to advance her [...] renal failure superimposed on chronic kidney disease ([facility]) (06/29/2023), Anxiety, Arthritis, Asthma ([facility]), CPAP (continuous positive airway pressure) dependence, Depression, Disease of thyroid gland, Dizziness, GERD (gastroesophageal reflux disease), H ypothyroidism, Irritable bowel syndrome, Median arcuate ligament syndrome (CMS- HCC), PCOS (polycystic ovarian syndrome), PONV (postoperative nausea and vomiting), PUD (peptic ulcer disease), and Shortness of breath. She has no past medical history of Autoimmune disorder (Multi), Bipolar disorder (Multi), BPH (benign prostatic hyperplasia), Cerebral aneurysm (HHS-HCC), Cervical cancer (Multi), Cervical disc disease, Chronic kidney disease, CKD (chronic kidney disease), Cognitive decline, Crohn's disease (Multi), Dementia (Multi), Dysphagia, Endometrial cancer (Multi), Esophageal cancer (Multi), Esophageal disease, ESRD (end stage renal disease) (Multi), Fibromyalgia, primary, Fractures, Gastric cancer (Multi), Gender dysphoria, GI (gastrointestinal bleed), Hemodialysis status ([facility]), Hernia, internal, H istory of peritoneal dialysis, HIV disease (Multi), Immunocompromised (Multi), Liver disease, Lumbar disc disease, Mastocytosis, MS (multiple sclerosis) (Multi), Muscular dystrophy (Multi), Myasthenia gravis (Multi), Neuromuscular disorder (Multi), Ovarian cancer (Multi), Pancreatitis ([facility]), Peptic ulcer disease, Prematurity ([facility]), PTSD (post-traumatic stress disorder), Schizophrenia (Multi), Seizure [...] Yellow, Dark-Yellow Appearance, Urine Clear Clear Specific [place], Urine 1.023 1.005 - 1.035 pH, Urine [...] Audie Gutierrez 06/30/2023 12:06 PM Dictation workstation: [id number] Vascular US mesenteric artery duplex complete Result Date: 06/30/2023 [place] [address] Preliminary Vascular Lab Report [facility] US MESENTERIC ARTERY DUPLEX COMPLETE Patient Name: ABBEY Oneil Physician: [id number] Sherry Magaña MD Study Date: 06/30/2023 Ordering Provider: [id number] JAMIL GAVIN MRN/PID: [id number] Fellow: Technologist: Leia Degroot RVT Date of : 1990 Technologist 2: Gender: F Admission Status: Inpatient Location Performed: [facility] 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 COMPARISON: 03/16/2023 ACCESSION NUMBER(S): [id number] ORDERING CLINICIAN: DAVID VALADEZ TECHNIQUE: Axial CT [...] Fly [place] 06/29/2023 11:53 PM Dictation workstation: [id number] Assessment/Plan Abdominal pain FTT 33-year-old female with complicated history after gastric bypass surgery. She has been working witha surgeon at [facility] to advance her tube feeds and oral intake and decrease the TPN, however this has been unsuccessful. She was evaluated by Dr. Magaña here and there is no evidence of celiac or SMA stenosis or compression. There is an intestinal rehabilitation program through [facility] and recommend follow-up with that program. Cont [...] nausea aftera gastric bypass surgery done at [facility] in which she has been hospitalized multiple [...] 14 06/30/2023 CREATININE 0.60 06/30/2023 * Tiffanie Mandy Mendez, ENGINEERING SCIENTIST-BLASTING MACHINE OPERATOR - 06/30/2023 8:31 AM EDTAssociated Order(s): IP CONSULT TO VASCULAR SURGERY Reason for Consult Mid epigastric abdominal pain History Of Present Illness This is a 33-year-old female with past medical history of chronic abdominal pain, PCOS, PUD, depression, GERD, IBS, obesity (status post laparoscopic sleeve gastrectomy in August [address] Ku rjmYggi-ar-Y gastric bypass 01/29/[address] Kat) and median arcuate ligament syndrome who presented to the emergency department for further evaluation of mid epigastric abdominal pain and nausea. Jonh jose follows with GI and general surgery with the [facility] and is currently on TPN via J-tube [...] also spoke with her general surgeon at [facility] where patient was advised for referral to [facility] intestinal rehabilitation. Past Medical History Past Medical History: Diagnosis Date Acute renal failure superimposed on chronic kidney disease (CMS-HCC) 06/29/2023 Anxiety Arthritis Asthma (HHS-HCC) CPAP (continuous positive airway pressure) dependence Depression [...] Insecurity: No Food Insecurity (06/07/2023) Received from [facility] Hunger Vital Sign Worried About Running Out of Food in the Last Year: Never true Ran Out of Food in the Last Year: Never true Transportation Needs: No Transportation Needs (06/07/2023) Received from [facility] PRAPARE - Transportation Lack of Transportation (Medical): No Lack of Transportation (Non-Medical): No Physical Activity: Insufficiently Active (10/28/2022) Received from [facility] Exercise Vital Sign Days of Exercise per Week: 4 days Minutes of Exercise per Session: 30 min Stress: Stress Concern Present (10/28/2022) Received from [facility] [employer] [place] - Occupational Stress Questionnaire Feeling of Stress : To some extent Social Connections: Socially Integrated (10/28/2022) Received from [facility] Social Connection and Isolation Panel [NHANES] Frequency of Communication with Friends and Family: More than three times a week Frequency of Social Gatherings with Friends and Family: Once a week Attends Episcopalian Services: 1 to 4 times per year Active Member of Clubs or Organizations: Yes Attends Club or Organization Meetings: More than 4 times per year Marital Status: Intimate Partner Violence: Not on file Housing Stability: Low Risk (06/07/2023) Received from [facility] Housing Stability Vital Sign Unable to Pay [...] Yellow, Dark-Yellow Appearance, Urine Clear Clear Specific [place], Urine 1.023 1.005 - 1.035 pH, Urine [...] INDICATION: Signs/Symptoms:Abdominal pain. COMPARISON: 03/16/2023 ACCESSION NUMBER(S): [id number] ORDERING CLINICIAN: DAVID VALADEZ TECHNIQUE: Axial CT [...] Fly [place] 06/29/2023 11:53 PM Dictation workstation: [id number] Physical exam Constitutional: Alert and oriented to [...] for episodes of hypoglycemia [facility] Work Phone: [phone]) 461-337305-16-2024 Nurse Note* Mayda Balbuena LPN - 07/01/2023 2:30 AM EDT Pt alert and oriented, long intact, clear yellow urine , medicated twice for left epigastric pain with somewhat effect, TPN running at 83ml/hr, tolerating well, no sign of adverse reaction, pt remain NPO , sips with meds, pt in no acute distress, all safety measures in place, call light within reach. [facility]05-15-[facility]24 Plan of care note* Care Plan - Mayda Balbuena LPN - 06/30/2023 10:12 PM EDT The patient's goals for the shift include feel better The clinical goals for the shift include pain control [facility] Work Phone: [phone] Consult note* Tomasa Ortiz MD - 06/30/2023 [...] for which she follows a surgeon at [facility]. They have been trying to advance her [...] renal failure superimposed on chronic kidney disease ([facility]) (06/29/2023), Anxiety, Arthritis, Asthma ([facility]), CPAP (continuous positive airway pressure) dependence, Depression, Disease of thyroid gland, Dizziness, GERD (gastroesophageal reflux disease), H ypothyroidism, Irritable bowel syndrome, Median arcuate ligament syndrome ([facility]), PCOS (polycystic ovarian syndrome), PONV (postoperative nausea and vomiting), PUD (peptic ulcer disease), and Shortness of breath. She has no past medical history of Autoimmune disorder ([facility]), Bipolar disorder (Multi), BPH (benign prostatic hyperplasia), Cerebral aneurysm ([facility]), Cervical cancer (Multi), Cervical disc disease, Chronic kidney disease, CKD (chronic kidney disease), Cognitive decline, Crohn's disease (Multi), Dementia (Multi), Dysphagia, Endometrial cancer (Multi), Esophageal cancer (Multi), Esophageal disease, ESRD (end stage renal disease) (Multi), Fibromyalgia, primary, Fractures, Gastric cancer (Multi), Gender dysphoria, GI (gastrointestinal bleed), Hemodialysis status (CMS-HCC), Hernia, internal, H istory of peritoneal dialysis, [...] Yellow, Dark-Yellow Appearance, Urine Clear Clear Specific [place], Urine 1.023 1.005 - 1.035 pH, Urine [...] Audie Gutierrez 06/30/2023 12:06 PM Dictation workstation: [id number] Vascular US mesenteric artery duplex complete Result Date: 06/30/2023 [place] [address] Preliminary Vascular Lab Report [facility] US MESENTERIC ARTERY DUPLEX COMPLETE Patient Name: ABBEY GARCIA Reading Physician: [id number] Sherry Magaña MD Study Date: 06/30/2023 Ordering Provider: [id number] JAMIL GAVIN MRN/PID: [id number] Fellow: Technologist: Leia Degroot RVT Date of : 1990 Technologist 2: Gender: F Admission Status: Inpatient Location Performed: [facility] 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 COMPARISON: 03/16/2023 ACCESSION NUMBER(S): [id number] ORDERING CLINICIAN: DAVID VALADEZ TECHNIQUE: Axial CT [...] Fly [place] 06/29/2023 11:53 PM Dictation workstation: [id number] Assessment/Plan Abdominal pain FTT 33-year-old female with complicated history after gastric bypass surgery. She has been working witha surgeon at [facility] to advance her tube feeds and oral intake and decrease the TPN, however this has been unsuccessful. She was evaluated by Dr. Magaña here and there is no evidence of celiac or SMA stenosis or compression. There is an intestinal rehabilitation program through [facility] and recommend follow-up with that program. Cont TPN for nutrition and PO/tube feeds as tolerated in the meantime Tomasa Ortiz MD [facility] Work Phone: [phone]) [phone] Plan of care note* Care Plan - [...] no hearing aids. Her PCP is in [facility]; and she uses [facility] on [address] in [place] [facility]. She has a hx of gastric bypass, c/o abd pain. No anticipated discharge needs. DISCHARGE PLAN: HOME WITH T [facility] Work Phone: [phone] Consult note* JAMA Solis - 06/30/2023 11:27 [...] acute surgical intervention recommended at this time. Lucy Garcia is a 33 y.o. female presenting with 2-year history of abdominal pain and nausea aftera gastric bypass surgery done at [facility] in which she has been hospitalized multiple [...] 06/30/2023 BUN 14 06/30/2023 CREATININE 0.60 06/30/2023 [facility] Work Phone: [phone] Consult note* JAMA Judd - 06/30/2023 8:31 AM EDTAssociated Order(s): IP CONSULT TO VASCULAR SURGERY Reason for Consult Mid epigastric abdominal pain History Of Present Illness This is a 33-year-old female with past medical history of chronic abdominal pain, PCOS, PUD, depression, GERD, IBS, obesity (status post laparoscopic sleeve gastrectomy in August [address] Ku iwtObfz-yt-C gastric bypass 01/29/[address] Kat) and median arcuate ligament syndrome who presented to the emergency department for further evaluation of mid epigastric abdominal pain and nausea. Jonh jose follows with GI and general surgery with the [facility] and is currently on TPN via J-tube [...] also spoke with her general surgeon at [facility] where patient was advised for referral to [facility] intestinal rehabilitation. Past Medical History Past Medical History: Diagnosis Date Acute renal failure superimposed on chronic kidney disease ([facility]) 06/29/2023 Anxiety Arthritis Asthma ([facility]) CPAP (continuous positive airway pressure) dependence Depression Dizziness GERD (gastroesophageal reflux disease) Hypothyroidism Irritable bowel syndrome with constipation Median arcuate ligament syndrome ([facility]) PCOS (polycystic ovarian syndrome) PONV (postoperative nausea [...] Insecurity: No Food Insecurity (06/07/2023) Received from [facility] Hunger Vital Sign Worried About Running Out of Food in the Last Year: Never true Ran Out of Food in the Last Year: Never true Transportation Needs: No Transportation Needs (06/07/2023) Received from [facility] PRAPARE - Transportation Lack of Transportation (Medical): No Lack of Transportation (Non-Medical): No Physical Activity: Insufficiently Active (10/28/2022) Received from [facility] Exercise Vital Sign Days of Exercise per Week: 4 days Minutes of Exercise per Session: 30 min Stress: Stress Concern Present (10/28/2022) Received from [facility] [employer] [place] [employer] - Occupational Stress Questionnaire Feeling of Stress : To some extent Social Connections: Socially Integrated (10/28/2022) Received from [facility] Social Connection and Isolation Panel [NHANES] Frequency of Communication with Friends and Family: More than three times a week Frequency of Social Gatherings with Friends and Family: Once a week Attends Episcopalian Services: 1 to 4 times per year Active Member of Clubs or Organizations: Yes Attends Club or Organization Meetings: More than 4 times per year Marital Status: Intimate Partner Violence: Not on file Housing Stability: Low Risk (06/07/2023) Received from [facility] Housing Stability Vital Sign Unable to Pay [...] Yellow, Dark-Yellow Appearance, Urine Clear Clear Specific [place], Urine 1.023 1.005 - 1.035 pH, Urine [...] INDICATION: Signs/Symptoms:Abdominal pain. COMPARISON: 03/16/2023 ACCESSION NUMBER(S): [id number] ORDERING CLINICIAN: DAVID VALADEZ TECHNIQUE: Axial CT [...] Fly [place] 06/29/2023 11:53 PM Dictation workstation: [id number] Physical exam Constitutional: Alert and oriented to [...] sleeve gastrectomy in August [address] uK and Tan-en-Y gastric bypass 01/29/[address] Kat Patient being admitted under hospitalist service N.p.o. in preparation for mesenteric duplex We will give further recommendations after results of duplex General surgery on consult Patient advised to follow-up with Dr. Kat's office after discharge Needs further workup for episodes of hypoglycemia [facility] Work Phone: [phone]) 575-877105-15-2024 Emergency department Note* Carla Alejo LPN - 06/30/2023 6:43 AM EDT Patient in gown at this time no c/o pain or discomfort no needs made known at this time Patient sleeping, chest rises and falls at equal intervals and patient takes breaths. Responds verbaly to calling of name and acknowledges this nurses presence in room Carla Alejo LPN 06/30/23 0645 [facility]05-15-[facility]24 Emergency department Note* Carla Alejo [...] time Carla Alejo LPN 06/30/23 0549 * Calra Alejo LPN - 06/29/2023 8:57 PM EDT [...] renal failure superimposed on chronic kidney disease ([facility]) 06/29/2023 Anxiety Arthritis Asthma ([facility]) CPAP (continuous positive airway pressure) dependence Depression Dizziness GERD (gastroesophageal reflux disease) Hypothyroidism Irritable bowel syndrome with constipation Median arcuate ligament syndrome ([facility]) PCOS (polycystic ovarian syndrome) PONV (postoperative nausea [...] interpretation: Sinus rhythm [address] interval 140 QTc 453 no ectopy or [...] for admission. Procedure Procedures David Valadez DO 05/15/24 0244 * Carla Alejo LPN - 06/29/2023 5:37 PM EDT medications held at this time per ED physician verbal order Carla Alejo LPN 06/29/23 2312 documented in [facility] Work Phone: [phone]) [phone] Emergency department Note* Carla Alejo LPN - 06/30/2023 5:48 AM EDT Patient vitals taken, labs drawn and sent and patient medicated for pain , vitals taken and charted, no c/o discomfort or other needs at this time Carla Alejo LPN 06/30/23 0549 [facility] Work Phone: [phone]) [phone] History and physical note* Baldomero Woodard MD - 06/30/2023 2:40 AM EDT History Of Present Illness bAbey Garcia is a 33 y.o. female presenting with 2-year history of abdominal pain and nausea after a gastric bypass surgery done at [facility] she has been hospitalized multiple times for this. She has a combination gastric tube jejunostomy tube which is supposed to be used for tube feeds she is on TPN. She has a surgeon at [facility] but she also sees Dr. Magaña vascular [...] get her nausea under control with Reglan [id number] will consult general surgery to help with this complicated acute on chronic situation will order subcu heparin IV Protonix will make sure her gastric tube in her J- tube gets flushed. 3 times a day will order most of her home meds the way she takes them at home either by mouth or for through the J-tube. Baldomero Woodard MD [facility] Work Phone: [phone] History and physical note* Baldomero Woodard MD - 06/30/2023 2:40 AM EDT History Of Present Illness Abbey Garcia is a 33 y.o. female presenting with 2-year history of abdominal pain and nausea after a gastric bypass surgery done at [facility] she has been hospitalized multiple times for this. She has a combination gastric tube jejunostomy tube which is supposed to be used for tube feeds she is on TPN. She has a surgeon at [facility] but she also sees Dr. Magaña vascular [...] get her nausea under control with Reglan [id number] will consult general surgery to help with this complicated acute on chronic situation will order subcu heparin IV Protonix will make sure her gastric tube in her J- tube gets flushed. 3 times a day will order most of her home meds the way she takes them at home either by mouth or for through the J-tube. Baldomero Woodard MD documented in [facility]University [facility] Work Phone: [phone]) [phone] Emergency department Note* Carla Alejo LPN - 06/29/2023 8:57 PM EDT Assumed care of patient , labs drawn originally while tpn was attached and running , blood glucose redone via fingerstick with result of 117 and cbc/bmp reordered STAT , drawn and sent to lab Carla Alejo LPN 06/29/232057 [facility] Work Phone: [phone]) 434-778605-14-2024 Emergency department Note* Carla Alejo LPN - 06/29/2023 5:37 PM EDT medications held at this time per ED physician verbal order Carla Alejo LPN 06/29/232 [facility] Work Phone: [phone]) [phone] Physician Emergency department Note* David Valadez DO [...] orchills. No chest pain. No other complaints. [place] Coma Scale Score: 15 Patient History Past Medical History: Diagnosis Date Acute renal failure superimposed on chronic kidney disease ([facility] 06/29/2023 Anxiety Arthritis Asthma ([facility]) CPAP (continuous positive airway pressure) dependence Depression Dizziness GERD (gastroesophageal reflux disease) Hypothyroidism Irritable bowel syndrome with constipation Median arcuate ligament syndrome ([facility]) PCOS (polycystic ovarian syndrome) PONV (postoperative nausea [...] interpretation: Sinus rhythm [address] interval 140 QTc 453 no ectopy or [...] admission. Procedure Procedures David Valadez DO 06/30/23243 [facility] Work Phone: 1(124) 969-150505-07-2024 History of Present illness Narrative* Sherry Magaña MD - 06/22/2023 11:45 AM EDT Patient and I had a video conference as she was at home in [place] and I was at the [facility] vascular center. She reports doing poorly with [...] conference was 10 minutes documented in this [facility] Work Phone: 1(122) 923-141505-03-2024 Note [id number]#1.00[facility] 06-18-2023 History of Present illness Narrative* Breanna Stern APRN.BLASTING MACHINE OPERATOR - 06/18/2023 10:00 AM EDT Assessment Postoperative [...] Kat Follow up with Dr Jacquelyn Stern APRN.BLASTING MACHINE OPERATOR documented in this encounterTr[facility]05-03-2024 NoteBar[facility]24 Nurse Note* Yaneth Mitchell MA - 06/18/2023 9:35 AM EDT What is the reason for your visit today? Post op PEG-J placement Who is your referring physician? Are you having poor oral intake? YES Have you had unintentional weight loss of 15 lbs/7 Kg in the last 3-6 months? NO Bowels: diarrhea Wound: Temperature: No Drains: No [facility]05-03-2024 Nurse Note* Yaneth Mitchell MA - 06/18/2023 9:35 AM EDT What is the reason for your visit today? Post op PEG-J placement Who is your referring physician? Are you having poor oral intake? YES Have you had unintentional weight loss of 15 lbs/7 Kg in the last 3-6 months? NO Bowels: diarrhea Wound: Temperature: No Drains: No documented in this encounterTrumbull [facility] Center05-02-2024 Telephone encounter Note * Telephone Encounter - [...] with scheduling provider for ketamine refill appt. [facility]05-02-2024 Miscellaneous Notes* Telephone Encounter - Clarence Hargrove [...] for ketamine refill appt. documented in this encounterTrumbull [facility] Medical Center05-02-2024 Telephone encounter Note * Telephone Encounter - Serena Neff - 06/17/2023 11:40 AM EDT Phoned Malka back with Dr. Kat's response. He will not be managing patient's TPN. Malka advised that she arranged for hospitalist to manage. Serena Neff SENIOR PACKAGING ENGINEER Gas Welder for Dr. Kat [facility]05-02-2024 Miscellaneous Notes* Telephone Encounter - Serena Neff - 06/17/2023 11:40 AM EDT Phoned Malka back with Dr. Kat's response. He will not be managing patient's TPN. Malka advised that she arranged for hospitalist to manage. Serena Neff RN BSN Gas Welder for Dr. Kat * Telephone Encounter - Dorita Manning - 06/15/2023 3:20 PM EDT Malka from [facility] calling asking if Dr Kat will follow patient for TPN. Physician there is discharging patient on TPN. CB# [phone] ext [phone] documented in this encounterTrumbull [facility] Center04-30-2024 Telephone encounter Note * Telephone Encounter - Dorita Manning - 06/15/2023 3:20 PM EDT Malka from [facility] calling asking if Dr Kat will follow patient for TPN. Physician there is discharging patient on TPN. CB# [phone] ext [phone] [facility]04-30-2024 [id number]#1.00[facility]04-29-2024 Telephone encounter Note* Telephone Encounter - Stephanie Sumner DO - 06/14/2023 4:39 PM EDT Hospital Medicine Transfer Received page for transfer request from [facility] to [place]: Abbey Garcia is 33 year old female who presented with nausea, vomiting and worsening LUQ pain. Pt has complicated gastric surgery history and is currently doing TF via PEG for nutrition. Per [place] ED pt is HDS and electrolytes are stable. Pt is requesting transfer to because that is where her care team is and states she only went to [place] ED because they have short wait times. ED team gave IVF and IV pain meds which improved LUQ pain somewhat. Pts notified Dr Kat that she was going to ED. Reason for transfer: continuity of care Accepted to hospital medicine service at [place] Stephanie Sumner DO 4:39 PM [facility] Work Phone: 1(890) 407-506204-29-2024 Miscellaneous Notes* Telephone Encounter - Stephanie Sumner DO - 06/14/2023 4:39 PM EDT Hospital Medicine Transfer Received page for transfer request from [facility] to [place]: Abbey Garcia is 33 year old female who presented with nausea, vomiting and worsening LUQ pain. Pt has complicated gastric surgery history and is currently doing TF via PEG for nutrition. Per [place] ED pt is HDS and electrolytes are stable. Pt is requesting transfer to because that is where her care team is and states she only went to [place] ED because they have short wait times. ED team gave IVF and IV pain meds which improved LUQ pain somewhat. Pts notified Dr Kat that she was going to ED. Reason for transfer: continuity of care Accepted to hospital medicine service at [place] Stephanie Sumner DO 4:39 PM documented in this encounterTrumbull [facility] Medical Center04-29-2024 Telephone encounter Note * Telephone Encounter - Serena Neff Carito - 06/14/2023 3:31 PM EDT Phoned patient and to discuss ED admission today. Pt is being transferred from [facility] to [facility]. Patient complaining of worsening left sided abdominal [...] at this time. Serena Neff RN BSN Gas Welder for Dr. Kat [facility]04-29-2024 Miscellaneous Notes* Telephone Encounter - NeffSerena - 06/14/2023 3:31 PM EDT Phoned patient and to discuss ED admission today. Pt is being transferred from [facility] to [facility]. Patient complaining of worsening left sided abdominal [...] at this time. Serena Neff RN BSN Gas Welder for Dr. Kat documented in this encounterTrumbull Regional Medical Center04-26-2024 Note [id number]#1.00[facility] 06-09-2023 NoteHNO ID: [id number] Author: PABLO LEBRON PSYD Service: ? Author Type: Psychologist Type: Progress Notes Filed: 06/09/2023 09:52 Note Text: Assessment was conducted virtually. Patient is a resident of [place], and completed the assessment virtually in [place]. Psychologist is licensed and stationed in [place]. 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 Appreciative of supportive and [...] Focused Psychotherapy, Supportive Therapy PROGRESS TO DATE: Bee Tender Progress: Stable Short Term Condition: Stable GOALS/OBJECTIVES/INTERVENTIONS: To identify and implement tools for effectively managing symptoms of anxiety, stress, and low mood. Approximately 45 minutes were spent with the patient doing therapy. Pablo Lebron [facility]04-24-2024 History of Present illness Narrative* Pablo Lebron, [facility] - 06/09/2023 8:59 AM EDT Assessment was conducted virtually. Patient is a resident of [place], and completed the assessment virtually in [place]. Psychologist is licensed and stationed in [place]. 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 Appreciative of supportive and [...] Focused Psychotherapy, Supportive Therapy PROGRESS TO DATE: Skilled Nursing Progress: Stable Short Term Condition: Stable GOALS/OBJECTIVES/INTERVENTIONS: To identify and implement tools for effectively managing symptoms of anxiety, stress, and low mood. Approximately 45 minutes were spent with the patient doing therapy. Pablo Lebron PsyD documented in this encounterTrumbull Regional Medical Center04-23-2024 [facility] 06-07-2023 [facility] HospitalCqmzasux61-92-1855 NoteBarney [facility]04-16-2024 NoteBarney [facility]04-16-2024 History of Present illness Narrative* Vic Ramos MD - 06/01/2023 4:28 PM EDT TELEMEDICINE VISIT Modified Protocol for treatment of other conditions supportive of goal to minimize vulnerable patient exposure to Covid-19 [facility] Emergency Consented for encounter Patient verified by name and Abbey Garcia [id number] 1990 Patient consents to virtual visit Patient located at home Dr. Ramos located at [facility] office SUBJECTIVE: The patient [facility] for pain in the [...] which included preparing to see the patient, auvg-fd-xwpc patient care, completing clinical documentation, obtaining and/or [...] MD June 01, 2023 documented in this encounterTrumbull Regional Medical Center04-15-2024 Note [id number]#1.00[facility] 05-30-2023 Miscellaneous Notes* Telephone Encounter - Deacon Kat MD - 05/30/2023 10:16 AM EDT Significant constipation - no bm since Wednesday, a lot of rectal pressure. Tried her linzess, miralax. Recommended enema OTC + dulcolax suppository. Contact me if not improved. Deacon Kat MD documented in this encounterTrumbull Regional Medical Center04-12-2024 Miscellaneous Notes* Telephone Encounter - Nabila Jackson RPh - 05/28/2023 5:48 PM EDT ERx for Nutren sent to [facility] today. These orders are unable to be processed here, but may be eligible to fill using [facility] at [place]. Please review and if appropriate, send forward for processing. Thank you! [facility] [phone] documented in this encounterTrumbull Regional Medical Center04-12-2024 [facility] 05-28-2023 Miscellaneous Notes* Telephone Encounter - [...] and advise. Grecia Wallace documented in this encounterTrumbull Regional Medical Center04-12-2024 [facility] 05-27-2023 NoteHNO ID: [id number] Author: EH KIMBALL, RN Service: Nursing Author Type: Registered Nurse Type: Nursing Progress Note Filed: 05/27/2023 09:20 Note Text: Other: 0900 Pt verbalizes interest about bolus feeding. Refractory Manager made aware. [facility]Qejbufif66-02-1845 NoteBoston [id number] NoteBoston [facility] BabiesJcabjqmj20-54-5227 NoteBoston [facility]iesXzufpeat08-48-8279 Note [id number] 05-22-2023 NoteBoston [facility] For [facility] BabiesKuozcuig44-67-9199 NoteBoston [facility] For [facility] BabiesRckosejr30-05-1821 Note [facility]Bdccokgm69-31-8778 NoteBoston Nursery For Blind BabiesQqjnjbzk49-56-3564 Telephone encounter Note* Telephone Encounter - Itzel Hurley RN - 05/18/2023 9:25 AM EDT Images from the original note were not included. EGD images; please review [facility] EGD Report 05/12/2023 [facility]04-02-2024 Miscellaneous Notes* Telephone Encounter - Itzel Hurley [...] Please review thank you! documented in this encounterTrumbull Regional Medical Center04-02-2024 Telephone encounter Note * Telephone Encounter - Silvina Brown - 05/18/2023 9:20 AM EDT Received records from [facility]. EGD dated 05/12/2023 Discharge Summary 05/11 to 05/14/2023 Ct Abdomen/Pelvis 05/11/2023 Please review thank you! [facility]04-01-2024 Hospital Discharge instructions Patient Education 05/17/2023 15:06:10 [...] at pharmacies and retail stores. Eat bland, hcab-zn-rldwfy foods in small amounts as you are [...] and water are not available, use hand floor covering layer. Make sure that everyone in your household washes their hands frequently. Take myjv-xjc-mritilf and prescription medicines only as told by [...] and water are not available, use hand floor covering layer. Watch your condition for any changes and for signs of dehydration. Keep all follow-up visits. This is important. This information is not intended to replace advice given to you by your health care provider. Make sure you discuss any questions you have with your health care provider. Document Revised: 08/08/2021 Document Reviewed: 08/08/2021 [employer] Patient Education 2022 [employer]. Follow Up Care 05/17/2023 14:15:17 With:Jaquan Paula FAM, MED Address: When:05/20/2023 [facility]04-01-2024 History of Present illness Narrative* Deacon Kat MD - 05/17/2023 2:40 PM EDT VIRTUAL VISIT PROGRESS NOTE This is a virtual visit using [employer] Zoom Video Visit. It required patient- provider interaction for the medical decision making as documented below. I have communicated my name and active licensure. The patient's identity and physical location wereverified at the time of this visit. Either the patient or their legal outside dealer sales representative has been informed of the [...] PM -------- ORIGINAL REPORT -------- Dictation workstation: [id number] Impression Postsurgical changes from gastric bypass. No evidence for obstruction.. MACRO: none Signed by: Corie Garza 03/17/2023 5:00 PM Dictation workstation: [id number] Narrative Interpreted By: Corie Garza, STUDY: FL UPPER GI W DOUBLE CONTRAST W SMALL BOWEL FOLLOW THROUGH; 03/17/2023 4:40 pm INDICATION: Signs/Symptoms:abdominal pain. COMPARISON: None. ACCESSION NUMBER(S): [id number] ORDERING CLINICIAN: TIFFANIE MENDEZ TECHNIQUE: Multiple fluoroscopic spot images were obtained during a single contrast upper GI with KUB. Total fluoroscopy time: 1 minute 32 seconds Radiation exposure (Reference Air Kerma): 99.36 mGy Images: 2 spot images 7 series and 2 delayed AP views of the abdomen FINDINGS: Agency Owner images demonstrate postsurgical changes from previous Tan-en-Y [...] Corie Garza 03/16/2023 5:46 PM Dictation workstation: [id number] Narrative Interpreted By: Corie Garza, STUDY: CT ABDOMEN PELVIS W IV CONTRAST; 03/16/2023 5:27 pm INDICATION: Signs/Symptoms:abdominal pain - with oral and IV contrast. COMPARISON: None.. ACCESSION NUMBER(S): [id number] ORDERING CLINICIAN: TIFFANIE MENDEZ TECHNIQUE: Oral contrast [...] STOMACH ANTRUM BIOPSY SURGICAL PATHOLOGY EXAM Tomasa Keyes, DEE 03/19/2023 1431 Pathology STOMACH ANTRUM, [...] ER. Deacon Kat MD documented in this encounterTrumbull Regional Medical Center04-01-2024 NoteBarney [facility]04-01-2024 Evaluation + Plan noteExtracted from: [...] Appointment Date:05/19/2023 10:40:00 AM Scheduled Provider:Jaquan Paula Location:[facility] Appointment Type: Hospital Follow Up w/TCM Appointment Date:07/13/2023 08:20:00 AM Scheduled Provider:OLGA GATICA PA-C Location:[facility] Appointment Type:URO Office Visit Appointment Date:08/04/2023 09:45:00 AM Scheduled Provider:Rajni Rouse MD Location:[facility] Appointment Type:URO Office Visit Diagnostic Tests Pending * Drug Screen Urine 05/17/23 Future Scheduled Tests Radiology* US Renal 06/10/22 [facility]03-29-2024 Evaluation + Plan noteExtracted from: Title:Discharge [...] When Contact Information Cristhian REDDING, Jaquan Johnson, [facility], MED Additional Instructions: Follow up with surgeon Additional Instructions: Appointment has already been scheduled Cannabinoid Hyperemesis Syndrome Nausea and Vomiting, Adult, Bysl-kh-Fpqo Extracted from: Title:Progress Note * Author:Miguel JOHNSON, Rosalia Smith Date:05/14/23 Impression and Plan This is a 33-year-old lady with past medical history of gastric sleeve surgery in July 2020, complicated by significant reflux switch to Tan-en-Y January 2022 at [facility], MALS surgery February 2023 which reported [...] PPI twice daily Ordered: [facility] Care/Day Moderate 35 Minutes 12700 2. Intractable abdominal pain (R10.9: Unspecified abdominal [...] 05/11 Bentyl, Carafate, PPI twice daily Ordered: [facility] Hospital Care/Day Moderate 35 Minutes 42237 2. Intractable abdominal pain (R10.9: Unspecified abdominal [...] reflux switch to Tan-en-Y January 2022 at [facility], [facility] surgery February 2023 which reported helped her [...] post MALS procedure as recommended Extracted from: Title:JAMESS Post-operative Note---General Author: Kuldip Arcos Jr, DO Date:05/12/23 Plan Transfer/Discharge: Transfer/Discharge Discharge when meets criteria ( To home ). Extracted from: Title:Inpatient Consultation -Floor Code* Author:Jon Rivera MD Date:05/12/23 Impression and Plan This is a 33-year-old lady with past medical history of gastric sleeve surgery in July 2020, complicated by significant reflux switch to Tan-en-Y January 2022 at [facility], MALS surgery February 2023 which reported [...] 2022 Author:Kuldip Arcos Jr, DO Date:05/12/23 Plan [place] [employer] Anesthesiologists (ASA) physical status classification: [...] Ordered: Initial Hospital Care/Day Moderate [address] in Status 2. Intractable abdominal pain [...] Appointment Date:05/19/2023 10:40:00 AM Scheduled Provider:Jaquan Paula Location:[facility] Appointment Type: Hospital Follow Up w/TCM Appointment Date:07/13/2023 08:20:00 AM Scheduled Provider:OLGA GATICA PA-C Location:[facility] Appointment Type:URO Office Visit Appointment Date:08/04/2023 09:45:00 AM Scheduled Provider:Rajni Rouse MD Location:[facility] Appointment Type:URO Office Visit Diagnostic Tests Pending * Copper Level 05/14/23 * HIV Screen 4th Generation wRfx 05/14/23 * Acute Hepatitis A B C Panel 05/14/23 Future Scheduled Tests Radiology* US Renal 06/10/22 [facility]03-29-2024 Hospital Discharge instructions Patient Education 05/14/2023 [...] as coffee and soda. Take and apply wjwd-xcg-ocsfdpv and prescription medicines only as told by [...] provider. Document Revised: 06/01/2022 Document Reviewed: 06/01/2022 [employer] Patient Education 2022 [employer]. 05/14/2023 11:56:24 Nausea and Vomiting, Adult, Qmok-fb-Fock Nausea and Vomiting, Adult Nausea is feeling [...] fruit juice). ?Low-calorie sports drinks. Eat bland, tjlw-yq-tcpyex foods in small amounts as you are able, such as: ?Bananas. ?Applesauce. ?Rice. ?Low-fat (lean) meats. ?Lerna. ?Crackers. Avoid drinking fluids that have a lot of sugar or caffeine in them. This includes energy drinks, sports drinks, and soda. Avoid alcohol. Avoid spicy or fatty foods. General instructions Take lxzh-wjf-oelaeim and prescription medicines only as told by your doctor. Drink enough fluid to keep your pee (urine) pale yellow. Wash your hands often with soap and water for at least 20 seconds. If you cannot use soap and water, use hand floor covering layer. Make sure that everyone in your home [...] your doctor about eating and drinking. Take xhix-qyc-vvfeclt and prescription medicines only as told by your doctor. Contact your doctor if your symptoms get worse or you have new symptoms. Keep all follow-up visits. This information is not intended to replace advice given to you by your health care provider. Make sure you discuss any questions you have with your health care provider. Document Revised: 08/08/2021 Document Reviewed: 08/08/2021 [employer] Patient Education 2022 [employer]. Follow Up Care 05/12/2023 09:23:09 With:Patient has [facility] in place Address:Unknown When: Unknown With:Jaquan Paula FAM, [facility] Address: [address] [place] [address] [facility] (1) When: Unknown With:Follow up with surgeon Address: When: Unknown Comments:Appointment has already been scheduled [facility]03-29-2024 [facility]:Result Comment: Electronically Signed By: Moncho Trejo DO.br\Date and Time Signed: 05/14/23 12:06 [id number] [facility] SystemComment on above:Result Comment: Electronically Signed By: Moncho Trejo DO.br\Date and Time Signed: 05/12/23 12:59 [id number] Hospital Discharge instructions Patient Education 05/11/2023 16:46:23 Abdominal Pain, Adult, Vutb-er-Ubhg Abdominal Pain, Adult Many things can cause belly (abdominal) pain. Most times, belly pain is not dangerous. Many cases of belly pain can be watched and treated at home. Sometimes, though, belly pain is serious. Your doctor will try to find the cause of your belly pain. Follow these instructions at home: Medicines Take pnoe-hal-iuhnven and prescription medicines only as told by [...] your belly pain for any changes. Take twew-vrm-gyyjusg and prescription medicines only as told by [...] provider. Document Revised: 06/12/2019 Document Reviewed: 06/12/2019 [employer] Patient Education 2022 [employer]. Follow Up Care 05/11/2023 11:48:15 With:Miguel JOHNSON, APRYL Bean, [facility] Address: [address], [address] [facility] [address] [place] [address]- [phone] When:2 to 4 days Comments:Call today to schedule your follow upReturn to ED if symptoms worsen [facility]03-26-2024 Evaluation + Plan noteExtracted from: Title:ED [...] Date:07/13/2023 08:20:00 AM Scheduled Provider:OLGA GATICA PA-C Location:[facility] Appointment Type:URO Office Visit Appointment Date:08/04/2023 09:45:00 AM Scheduled Provider:Rajni Rouse MD Location:[facility] Appointment Type:URO Office Visit Future Scheduled Tests Radiology* US Renal 06/10/22 [facility]03-25-2024 Miscellaneous Notes* Telephone Encounter - Serena Neff - 05/10/2023 2:51 PM EDT Patient scheduled with Dr. Kat on 05/11. Serena Neff RN BSN Gas Welder for Dr. Kat * Telephone Encounter - [...] by Dr. Kat. Serena Neff RN BSN Gas Welder for Dr. Kat * Telephone Encounter - Dorita Manning - 05/10/2023 10:44 AM EDT Patients calling concerned about Abbey. She has been in the ER 2 times in the last 4 days. She was told to speak to DR who originally put her on TPN to discuss getting back on it. CB# [phone] documented in this encounterTrumbull [facility] Medical Center03-24-2024 Hospital Discharge instructions Patient Education 05/09/2023 16:21:11 [...] Follow these instructions at home: Medicines Take ibzr-ygi-oaiksud and prescription medicines only as told by [...] Watch your condition for any changes. Take fyle-bkg-feineua and prescription medicines only as told by [...] provider. Document Revised: 03/22/2020 Document Reviewed: 06/12/2019 [employer] Patient Education 2022 [employer]. Follow Up Care 05/09/2023 11:38:04 With:Earnest Oakes Address: [facility] Alhaji [place], Akhil [address] [address]- [phone] Business (1) When:05/12/2023 15:51:27 With:Jon Rivera Address: [facility] [place], [facility] [address] [address]- [phone] Business (1) When:05/12/2023 15:51:00 With:Jaquan Morrow Address: [address] [place] [phone] Business (1) When:05/12/2023 15:50:53 [facility]03-24-2024 Evaluation + Plan noteExtracted from: Title:ED [...] Date:07/13/2023 08:20:00 AM Scheduled Provider:OLGA GATICA PA-C Location:[facility] Appointment Type:URO Office Visit Appointment Date:08/04/2023 09:45:00 AM Scheduled Provider:Nasim JOHNSON, Rajni Ballesteros Location:[facility] Appointment Type:URO Office Visit Future Scheduled Tests Radiology* US Renal 06/10/22 [facility] [facility] Miscellaneous Notes* Telephone Encounter - Yvette Morgan - 05/07/2023 11:07 AM EDT Procedure canceled * Telephone Encounter - Santa Hart RN - 05/07/2023 10:47 AM EDT Patient is keeping 07/20/2023 Upper endoscopy appointment and wishes to cancel 05/14/2023 EGD appointment. Scheduling notified. [facility] Discharge instructions Patient Education 05/06/2023 21:19:23 [...] Follow these instructions at home: Medicines Take cbqg-gvl-ztpyoga and prescription medicines only as told by [...] Watch your condition for any changes. Take rktf-ubw-bqkvmdh and prescription medicines only as told by [...] provider. Document Revised: 03/22/2020 Document Reviewed: 06/12/2019 [employer] Patient Education 2022 [employer]. Follow Up Care 05/06/2023 15:41:48 With:Follow-up with your surgeon at soon as possible, call the office tomorrow to schedule an appointment. Return to the ER with any new or worsening symptoms. Address:Unknown When: Unknown With:Jaquan Morrow Address:Unknown When:Within 3 Day(s) [facility]03-13-2024 History of Present illness Narrative* Kasie [...] race variable for the IDMS-Traceable creatinine methods. https://jasn.asnjournals.org/content/early//ASN.4162998193 Calcium 8.5 - 10.4 mg/dL 8.7 Albumin [...] the body of the stomach FINAL DIAGNOSIS [facility] STOMACH ANTRUM, BIOPSY: Erosive chronic active [...] healthy appearing mucosa. This was traversed. The ngbdq-mh-hhijmae limb was characterized by healthy appearing mucosa. [...] healthy appearing mucosa. This was traversed. The xelbg-rd-mzghryr limb was characterized by healthy appearing mucosa. The jejunojejunal anastomosis was characterized by healthy appearing mucosa. The examined jejunum was normal. Impression: - Normal esophagus. - Tan-en-Y gastrojejunostomy with gastrojejunal anastomosis characterized by healthy appearing mucosa. No ulceration or stenosis. - Normal examined jejunum. - No specimens collected. Upper GI SERIES 03/17/23 FINDINGS: Agency Owner images demonstrate postsurgical changes from previous Tan-en-Y [...] destructive bone lesions. CT ABD/PEL 12/06/22 ABDOMEN: Agency Owner (topogram) images: No additional findings. Images of [...] which included preparing to see the patient, ewgb-cn-jlnq patient care, completing clinical documentation, obtaining and/or reviewing separately obtained history, performing a medically appropriate examination, counseling and educating the pat ient/family/caregiver, and ordering medications, tests, or procedures. Kasie Avalos MD April 22, 2023 2:06 PM documented in this encounterTr[facility]03-13-[facility]24 [facility]Bar[facility] History of Present illness Narrative* [...] she connect with her bariatric surgeon at [facility]. I will follow-up with her in 2 weeks by telephone. documented in this encounterUniversity [facility] Work Phone: 1(721) 104-204102-21-2024 NoteBarney [facility]02-21-2024 History of Present illness Narrative* Deacon Kat MD - 04/07/2023 1:48 PM EST VIRTUAL VISIT PROGRESS NOTE This is a virtual visit using [employer] Video Visit. It required patient- provider interaction for the medical decision making as documented below. I have communicated my name and active licensure. The patient's identity and physical location wereverified at the time of this visit. Either the patient or their legal outside dealer sales representative has been informed of the [...] She had a recent EGD through the [facility] system which I was able to obtain [...] Low Deacon Kat MD documented in this encounterTrumbull [facility]02-16-2024 Hospital Discharge instructions Patient Education 04/02/2023 17:02:34 [...] Follow these instructions at home: Medicines Take jvry-ovo-kbgygse and prescription medicines only as told by [...] provider. Document Revised: 04/17/2021 Document Reviewed: 04/17/2021 [employer] Patient Education 2022 [employer]. 04/02/2023 17:02:34 Abdominal Pain, Adult Abdominal Pain, [...] Follow these instructions at home: Medicines Take baey-soz-jxkmkgt and prescription medicines only as told by [...] Watch your condition for any changes. Take usym-skz-dyxnppd and prescription medicines only as told by [...] provider. Document Revised: 03/22/2020 Document Reviewed: 06/12/2019 [employer] Patient Education 2022 [employer]. Follow Up Care 04/02/2023 10:53:50 With:Jon Rivera Address: [address] [place] [phone] Business (1) When:04/05/2023 16:23:56 Comments:Make sure to follow-up with your primary doctor and your surgeon. Follow-up with Dr. Rivera for the GI. Return to the emergency room if your pain gets worse or any new symptoms. With:Jaquan Morrow Address:Unknown When:Within 3 Day(s) [facility]02-16-2024 Evaluation + Plan noteExtracted from: Title:ED Note Author:Jose Ramon Martinez, Ashutosh Arroyo te:04/02/23 1. Chest pain (R07.9: Chest pain, unspecified) 2. Abdominal pain (R10.9: Unspecified abdominal pain) Orders: dicyclomine, 20 mg = 2 cap(s), Oral, QID, # 20 cap(s), Refills(s) 0, Pharmacy: [facility]/pharmacy #[id number], 167, cm, 04/02/23 11:01:00 EST, [...] nausea/vomiting, # 16 tab(s), Refills(s) 0, Pharmacy: [facility]/pharmacy #[id number], 167, cm, 04/02/23 11:01:00 EST, [...] day(s), # 560 mL, Refills(s) 0, Pharmacy: [facility]/pharmacy #[id number], 167, cm, 04/02/23 11:01:00 EST, [...] Date:08/04/2023 09:45:00 AM Scheduled Provider:Rajni Rouse MD Location:[facility] Appointment Type:URO Office Visit Future Scheduled Tests Radiology* US Renal 06/10/22 [facility]02-03-2024 Nurse Note* Stacie Blanco RN - 03/20/2023 4:41 PM EST Patient discharged home to care of self and . Patient transported to front entrance via wheelchair. No injuries, bleeding or distress noted. [facility]02-03-[facility] Nurse Note* Stacie Blanco RN [...] of NG tube. Order received. Waiting on nail tech to verify placement per order. Will continue [...] arriving back to unit. I gave patient temi before she left unit for xray. Dr. Wong at bedside. This nurse was given orders per to re insert NG tube and hooker up to low suction. Will re attempt with patients consent. * Cathy Madera RN - 03/17/2023 12:06 PM EST Patient transported to Xray for placement of NG. Patient off unit. * Cathy Madera RN - 03/17/2023 11:44 AM EST This nurse notified microbiological lab technician that patient had NG tube placed and needed Xray for placement verification. This nurse messaged Rosa YUN to notify her that NG tube was placed and needed separate order for NG tube placement per microbiological lab technician. Order received. Will continue to monitor [...] to ensure patient safety. documented in this encounterUniversity Hospitals [facility] Work Phone: 1(670) 373-978702-03-2024 Nurse Note* Stacie Blanco RN - 03/20/2023 4:01 PM EST Provided/explained discharge instructions and summary. Provided opportunity for questions and discussion. No complaints or concerns communicated. [facility] Work Phone: 1(337) 816-880202-03-2024 History of Present illness Narrative* Nathalie Tyler RN - 03/20/2023 3:35 PM EST Patient is medically ready for discharge. Per previous medicare sales representative, plan for home with home health care. Message to provider that external home care referral is needed. UPDATE 1549: Discharging provider indicates no continued skilled needs for home care. Per bedside nurse May, patient is in agreement that she no longer needs home health care services. Referral to [facility] updated and closed. Patient will discharge no with no reported skilled needs. * Lizz Brunson, ENGINEERING SCIENTIST-BLASTING MACHINE OPERATOR - 03/20/2023 11:40 AM EST Abbey Garcia [...] administrations occurring from 1403 to 1433 on 02/02/24 Preprocedure A history and physical has been [...] Tomasa Keyes RN 03/19/2023 1431 Procedure Location [address] [address] Referring Provider Generic Provider Coy No address on file Procedure Provider No [...] underwent EGD yesterday with Dr. Agosto. Dr. Jah Darnell was also present during [...] report reviewed, appreciate Dr. Agosto and Dr. Jah Darnell input. Component of [...] 03/17/2023 done at 2:05 p.m. ACCESSION NUMBER(S): [id number] ORDERING CLINICIAN: TIFFANIE MENDEZ TECHNIQUE: AP erect view of the chest FINDINGS: The nasogastric tube has not ch anged in placement with the tip seen within the proximal thoracic esophagus. Heart and mediastinum are normally visualized. Lungs are clear. Distal tip of nasogastric tube in proximal thoracic esophagus just above the aortic arch. Signed by: Nya Ahmadi 03/17/2023 8:19 PM Dictation workstation: [id number] FL upper GI w double contrast w small bowel follow through Result Date: 03/17/2023 Interpreted By: Corie Garza, STUDY: FL UPPER GI W DOUBLE CONTRAST W SMALL BOWEL FOLLOW THROUGH; 03/17/2023 4:40 pm INDICATION: Signs/Symptoms:abdominal pain. COMPARISON: None. ACCESSION NUMBER(S): [id number] ORDERING CLINICIAN: TIFFANIE MENDEZ TECHNIQUE: Multiple fluoroscopic spot images were obtained during a single contrast upper GI with KUB. Total fluoroscopy time: 1 minute 32 seconds Radiation exposure (Reference Air Kerma): 99.36 mGy Images: 2 spot images 7 series and 2 delayed AP viewsof the abdomen FINDINGS: Agency Owner images demonstrate postsurgical changes from previous Tan-en-Y [...] Corie Garza 03/17/2023 5:00 PM Dictation workstation: [id number] XR chest 1 view Result Date: 03/17/2023 Interpreted By: Corie Garza, STUDY: XR CHEST 1 VIEW; 03/17/2023 12:41 pm INDICATION: Signs/Symptoms:Status post NG tube placement. COMPARISON: None available ACCESSION NUMBER(S): [id number] ORDERING CLINICIAN: TIFFANIE MENDEZ FINDINGS: RESULT: Nasogastric [...] Corie Garza 03/17/2023 4:19 PM Dictation workstation: [id number] CT abdomen pelvis w IV contrast Result Date: 03/16/2023 Interpreted By: Corie Garza, STUDY: CT ABDOMEN PELVIS W IV CONTRAST; 03/16/2023 5:27 pm INDICATION: Signs/Symptoms:abdominal pain - with oral and IV contrast. COMPARISON: None.. ACCESSION NUMBER(S): [id number] ORDERING CLINICIAN: TIFFANIE MENDEZ TECHNIQUE: Oral contrast [...] Corie Garza 03/16/2023 5:46 PM Dictation workstation: [id number] XR chest 1 view Result Date: 03/06/2023 Interpreted By: Sara Zarate, STUDY: XR CHEST 1 VIEW; 03/06/2023 7:32 am INDICATION: Signs/Symptoms:post op COMPARISON: None ACCESSION NUMBER(S): [id number] ORDERING CLINICIAN: JASON FOSTER TECHNIQUE: Frontal and [...] Sara Zarate 03/06/2023 1:48 PM Dictation workstation: [id number] XR chest 1 view Result Date: 03/05/2023 Interpreted By: Baldomero Hendrickson, STUDY: XR CHEST 1 VIEW; 03/05/2023 3:11 pm INDICATION: CLINICAL INFORMATION: Signs/Symptoms:NG tube placement confirmation. COMPARISON: 03/05/2019 at 745 hours ACCESSION NUMBER(S): [id number] ORDERING CLINICIAN: DESMOND TIRADO TECHNIQUE: Portable chest [...] Baldomero Hendrickson 03/05/2023 3:31 PM Dictation workstation: [id number] XR chest 1 view Result Date: 03/05/2023 Interpreted By: Nya Ahmadi, STUDY: XR CHEST 1 VIEW 03/05/2023 7:51 am INDICATION: Signs/Symptoms:confirm line placement COMPARISON: None available. ACCESSION NUMBER(S): [id number] ORDERING CLINICIAN: SERENA GEORGE TECHNIQUE: AP erect view of the chest FINDINGS: Right arm PICC line terminates in the SVC. There is no pneumothorax. The heart, mediastinum, and lungs are normally visualized. Right arm PICC line terminating in SVC without pneumothorax. No acute cardiopulmonary disease. Signed by: Nya Ahmadi 03/05/2023 7:54 AM Dictation workstation: [id number] Assessment/Plan Principal Problem: Abdominal pain NV, Epigastric [...] EGD later today with Dr. Agosto. Dr. Jah Darnell to observe EGD and [...] unspecified vomiting type Staff Staff Role Eve Agosot MD Proceduralist Medications No administrations occurring from [...] Tomasa Keyes RN 03/19/2023 1431 Procedure Location [address] [address] Referring Provider Generic Provider Coy No address on file Procedure Provider No name on file XR chest 1 view Result Date: 03/17/2023 Interpreted By: Nya Ahmadi, STUDY: XR CHEST 1 VIEW 03/17/2023 7:09 pm INDICATION: Signs/Symptoms:S/p NG placement COMPARISON: 03/17/2023 done at 2:05 p.m. ACCESSION NUMBER(S): [id number] ORDERING CLINICIAN: TIFFANIE MENDEZ TECHNIQUE: AP erect view of the chest FINDINGS: The nasogastric tube has not ch anged in placement with the tip seen within the proximal thoracic esophagus. Heart and mediastinum are normally visualized. Lungs are clear. Distal tip of nasogastric tube in proximal thoracic esophagus just above the aortic arch. Signed by: Nya Ahmadi 03/17/2023 8:19 PM Dictation workstation: [id number] FL upper GI w double contrast w small bowel follow through Result Date: 03/17/2023 Interpreted By: Corie Garza, STUDY: FL UPPER GI W DOUBLE CONTRAST W SMALL BOWEL FOLLOW THROUGH; 03/17/2023 4:40 pm INDICATION: Signs/Symptoms:abdominal pain. COMPARISON: None. ACCESSION NUMBER(S): [id number] ORDERING CLINICIAN: TIFFANIE MENDEZ TECHNIQUE: Multiple fluoroscopic spot images were obtained during a single contrast upper GI with KUB. Total fluoroscopy time: 1 minute 32 seconds Radiation exposure (Reference Air Kerma): 99.36 mGy Images: 2 spot images 7 series and 2 delayed AP viewsof the abdomen FINDINGS: Agency Owner images demonstrate postsurgical changes from previous Tan-en-Y [...] Corie Garza 03/17/2023 5:00 PM Dictation workstation: [id number] XR chest 1 view Result Date: 03/17/2023 Interpreted By: Corie Garza, STUDY: XR CHEST 1 VIEW; 03/17/2023 12:41 pm INDICATION: Signs/Symptoms:Status post NG tube placement. COMPARISON: None available ACCESSION NUMBER(S): [id number] ORDERING CLINICIAN: TIFFANIE MENDEZ FINDINGS: RESULT: Nasogastric [...] Corie Garza 03/17/2023 4:19 PM Dictation workstation: [id number] CT abdomen pelvis w IV contrast Result Date: 03/16/2023 Interpreted By: Corie Garza, STUDY: CT ABDOMEN PELVIS W IV CONTRAST; 03/16/2023 5:27 pm INDICATION: Signs/Symptoms:abdominal pain - with oral and IV contrast. COMPARISON: None.. ACCESSION NUMBER(S): [id number] ORDERING CLINICIAN: TIFFANIE MENDEZ TECHNIQUE: Oral contrast [...] Corie Garza 03/16/2023 5:46 PM Dictation workstation: [id number] XR chest 1 view Result Date: 03/06/2023 Interpreted By: Sara Zarate, STUDY: XR CHEST 1 VIEW; 03/06/2023 7:32 am INDICATION: Signs/Symptoms:post op COMPARISON: None ACCESSION NUMBER(S): [id number] ORDERING CLINICIAN: JASON FOSTER TECHNIQUE: Frontal and [...] Sara Zarate 03/06/2023 1:48 PM Dictation workstation: [id number] XR chest 1 view Result Date: 03/05/2023 Interpreted By: Baldomero Hendrickson, STUDY: XR CHEST 1 VIEW; 03/05/2023 3:11 pm INDICATION: CLINICAL INFORMATION: Signs/Symptoms:NG tube placement confirmation. COMPARISON: 03/05/2019 at 745 hours ACCESSION NUMBER(S): [id number] ORDERING CLINICIAN: DESMOND TIRADO TECHNIQUE: Portable chest [...] Baldomero Hendrickson 03/05/2023 3:31 PM Dictation workstation: [id number] XR chest 1 view Result Date: 03/05/2023 Interpreted By: Nya Ahmadi, STUDY: XR CHEST 1 VIEW 03/05/2023 7:51 am INDICATION: Signs/Symptoms:confirm line placement COMPARISON: None available. ACCESSION NUMBER(S): [id number] ORDERING CLINICIAN: SERENA GEORGE TECHNIQUE: AP erect view of the chest FINDINGS: Right arm PICC line terminates in the SVC. There is no pneumothorax. The heart, mediastinum, and lungs are normally visualized. Right arm PICC line terminating in SVC without pneumothorax. No acute cardiopulmonary disease. Signed by: Nya Ahmadi 03/05/2023 7:54 AM Dictation workstation: [id number] Assessment/Plan -Abdominal pain/nausea -Median arcuate ligament syndrome, status post ligament release on 03/05/2023 -Obesity: status post laparoscopic sleeve gastrectomy in August [address] Ku and Tan-en-Y gastric bypass 01/29/[address] Kta 1. Abdominal pain/nausea: CT abdomen pelvis with [...] deferto her bariatric surgeon, Dr. Morel, at [place]. Will sign off. Kurt Matos MD * Anam Davila RN - 03/19/2023 3:11 PM EST Abbey Garcia is a 32 y.o. female on day 3 of admission presenting with Abdominal pain. Met with patient at bedside. Patient states she has been active with [facility] in [place] . Patient would like to continue HHC with [facility]. Referral was sent. EGD scheduled today. Has NG in place. [facility] is able to accept for STEF. NG discontinued. On clear liquids. WILL NEED AND EXTERNAL REFERRAL FOR RESUMPTION OF HHC. Anam Davila RN * Shelley Nash APRN-BETH - 03/19/2023 12:32 PM EST Abbey Garcia [...] her usual [facility] surgeons after DC. Acid customer marketing intern. MVI, B12. I spent 15 minutes in the professional and overall care of this patient. JAMA Greenberg * JAMA Smith - 03/19/2023 10:09 AM EST Abbey Garcia [...] 03/17/2023 done at 2:05 p.m. ACCESSION NUMBER(S): [id number] ORDERING CLINICIAN: TIFFANIE MENDEZ TECHNIQUE: AP erect view of the chest FINDINGS: The nasogastric tube has not changed in placement with the tip seen within the proximal thoracic esophagus. Heart and mediastinum are normally visualized. Lungs are clear. Impression: Distal tip of nasogastric tube in proximal thoracic esophagus just above the aortic arch. Signed by: Nya Ahmadi 03/17/2023 8:19 PM Dictation workstation: [id number] FL upper GI w double contrast w small bowel follow through Narrative: Interpreted By: Corie Garza, STUDY: FL UPPER GI W DOUBLE CONTRAST W SMALL BOWEL FOLLOW THROUGH; 03/17/2023 4:40 pm INDICATION: Signs/Symptoms:abdominal pain. COMPARISON: None. ACCESSION NUMBER(S): [id number] ORDERING CLINICIAN: TIFFANIE MENDEZ TECHNIQUE: Multiple fluoroscopic spot images were obtained during a single contrast upper GI with KUB. Total fluoroscopy time: 1 minute 32 seconds Radiation exposure (Reference Air Kerma): 99.36 mGy Images: 2 spot images 7 series and 2 delayed AP views of the abdomen FINDINGS: Agency Owner images demonstrate postsurgical changes from previous Tan-en-Y [...] Corie Garza 03/17/2023 5:00 PM Dictation workstation: [id number] XR chest 1 view Narrative: Interpreted By: Corie Garza, STUDY: XR CHEST 1 VIEW; 03/17/2023 12:41 pm INDICATION: Signs/Symptoms:Status post NG tube placement. COMPARISON: None available ACCESSION NUMBER(S): [id number] ORDERING CLINICIAN: TIFFANIE MENDEZ FINDINGS: RESULT: Nasogastric [...] Corie Garza 03/17/2023 4:19 PM Dictation workstation: [id number] Physical Exam Vitals and nursing note reviewed. [...] her usual [facility] surgeons after DC. Acid customer marketing intern. MVI, B12. I spent 15 minutes in the professional and overall care of this patient. Shelley Nash, SLIM-BLASTING MACHINE OPERATOR * Jason Foster APRN-BETH - 03/18/2023 3:11 PM EST Abbey Garcia [...] and overall care of this patient. Jason Foster APRN-BETH * EVERTON Mark - 03/18/2023 1:10 PM EST Pt lives in a house with her and 3 kids in two story house with first floor setup. 5 steps to enter the house. Pt drives, works, independent for mobility. Pt wears glasses. Pts PCP is Dr Marino with [facility], prescriptions filled through [facility] in [place]. Uncertain if pt will have dc needs. Her last admit she went home with [facility]. TCC to follow ongoing medical workup. Safe dc plan not secured-TCC to follow Sabina Hurd MSSA, QUANTITATIVE RESEARCHER * Lizz Brunson, ENGINEERING SCIENTIST-BLASTING MACHINE OPERATOR - 03/18/2023 10:57 AM EST Abbey Garcia [...] 03/17/2023 done at 2:05 p.m. ACCESSION NUMBER(S): [id number] ORDERING CLINICIAN: TIFFANIE MENDEZ TECHNIQUE: AP erect view of the chest FINDINGS: The nasogastric tube has not changed in placement with the tip seen within the proximal thoracic esophagus. Heart and mediastinum are normally visualized. Lungs are clear. Impression: Distal tip of nasogastric tube in proximal thoracic esophagus just above the aortic arch. Signed by: Nya Ahmadi 03/17/2023 8:19 PM Dictation workstation: [id number] FL upper GI w double contrast w small bowel follow through Narrative: Interpreted By: Corie Garza, STUDY: FL UPPER GI W DOUBLE CONTRAST W SMALL BOWEL FOLLOW THROUGH; 03/17/2023 4:40 pm INDICATION: Signs/Symptoms:abdominal pain. COMPARISON: None. ACCESSION NUMBER(S): [id number] ORDERING CLINICIAN: TIFFANIE MENDEZ TECHNIQUE: Multiple fluoroscopic spot images were obtained during a single contrast upper GI with KUB. Total fluoroscopy time: 1 minute 32 seconds Radiation exposure (Reference Air Kerma): 99.36 mGy Images: 2 spot images 7 series and 2 delayed AP views of the abdomen FINDINGS: Agency Owner images demonstrate postsurgical changes from previous Tan-en-Y [...] Corie Garza 03/17/2023 5:00 PM Dictation workstation: [id number] XR chest 1 view Narrative: Interpreted By: Corie Garza, STUDY: XR CHEST 1 VIEW; 03/17/2023 12:41 pm INDICATION: Signs/Symptoms:Status post NG tube placement. COMPARISON: None available ACCESSION NUMBER(S): [id number] ORDERING CLINICIAN: TIFFANIE MENDEZ FINDINGS: RESULT: Nasogastric [...] Corie Garza 03/17/2023 4:19 PM Dictation workstation: [id number] Physical Exam Vitals and nursing note reviewed. [...] 03/17/2023 done at 2:05 p.m. ACCESSION NUMBER(S): [id number] ORDERING CLINICIAN: TIFFANIE MENDEZ TECHNIQUE: AP erect view of the chest FINDINGS: The nasogastric tube has not ch anged in placement with the tip seen within the proximal thoracic esophagus. Heart and mediastinum are normally visualized. Lungs are clear. Distal tip of nasogastric tube in proximal thoracic esophagus just above the aortic arch. Signed by: Nya Ahmadi 03/17/2023 8:19 PM Dictation workstation: [id number] FL upper GI w double contrast w small bowel follow through Result Date: 03/17/2023 Interpreted By: Corie Garza, STUDY: FL UPPER GI W DOUBLE CONTRAST W SMALL BOWEL FOLLOW THROUGH; 03/17/2023 4:40 pm INDICATION: Signs/Symptoms:abdominal pain. COMPARISON: None. ACCESSION NUMBER(S): [id number] ORDERING CLINICIAN: TIFFANIE MENDEZ TECHNIQUE: Multiple fluoroscopic spot images were obtained during a single contrast upper GI with KUB. Total fluoroscopy time: 1 minute 32 seconds Radiation exposure (Reference Air Kerma): 99.36 mGy Images: 2 spot images 7 series and 2 delayed AP viewsof the abdomen FINDINGS: Agency Owner images demonstrate postsurgical changes from previous Tan-en-Y [...] Corie Garza 03/17/2023 5:00 PM Dictation workstation: [id number] XR chest 1 view Result Date: 03/17/2023 Interpreted By: Corie Garza, STUDY: XR CHEST 1 VIEW; 03/17/2023 12:41 pm INDICATION: Signs/Symptoms:Status post NG tube placement. COMPARISON: None available ACCESSION NUMBER(S): [id number] ORDERING CLINICIAN: TIFFANIE MENDEZ FINDINGS: RESULT: Nasogastric [...] Corie Garza 03/17/2023 4:19 PM Dictation workstation: [id number] CT abdomen pelvis w IV contrast Result Date: 03/16/2023 Interpreted By: Corie Garza, STUDY: CT ABDOMEN PELVIS W IV CONTRAST; 03/16/2023 5:27 pm INDICATION: Signs/Symptoms:abdominal pain - with oral and IV contrast. COMPARISON: None.. ACCESSION NUMBER(S): [id number] ORDERING CLINICIAN: TIFFANIE MENDEZ TECHNIQUE: Oral contrast [...] Corie Garza 03/16/2023 5:46 PM Dictation workstation: [id number] Assessment/Plan Abdominal pain, nausea, chronic intolerance to [...] Will discuss EGD with Dr. Agosto tomorrow. JAMA Zamora * JAMA Nunez - [...] 03/17/2023 done at 2:05 p.m. ACCESSION NUMBER(S): [id number] ORDERING CLINICIAN: TIFFANIE MENDEZ TECHNIQUE: AP erect view of the chest FINDINGS: The nasogastric tube has not ch anged in placement with the tip seen within the proximal thoracic esophagus. Heart and mediastinum are normally visualized. Lungs are clear. Distal tip of nasogastric tube in proximal thoracic esophagus just above the aortic arch. Signed by: Nya Ahmadi 03/17/2023 8:19 PM Dictation workstation: [id number] FL upper GI w double contrast w small bowel follow through Result Date: 03/17/2023 Interpreted By: Corie Garza, STUDY: FL UPPER GI W DOUBLE CONTRAST W SMALL BOWEL FOLLOW THROUGH; 03/17/2023 4:40 pm INDICATION: Signs/Symptoms:abdominal pain. COMPARISON: None. ACCESSION NUMBER(S): [id number] ORDERING CLINICIAN: TIFFANIE MENDEZ TECHNIQUE: Multiple fluoroscopic spot images were obtained during a single contrast upper GI with KUB. Total fluoroscopy time: 1 minute 32 seconds Radiation exposure (Reference Air Kerma): 99.36 mGy Images: 2 spot images 7 series and 2 delayed AP viewsof the abdomen FINDINGS: Agency Owner images demonstrate postsurgical changes from previous Tan-en-Y [...] Corie Garza 03/17/2023 5:00 PM Dictation workstation: [id number] XR chest 1 view Result Date: 03/17/2023 Interpreted By: Corie Garza, STUDY: XR CHEST 1 VIEW; 03/17/2023 12:41 pm INDICATION: Signs/Symptoms:Status post NG tube placement. COMPARISON: None available ACCESSION NUMBER(S): [id number] ORDERING CLINICIAN: TIFFANIE MENDEZ FINDINGS: RESULT: Nasogastric [...] Corie Garza 03/17/2023 4:19 PM Dictation workstation: [id number] CT abdomen pelvis w IV contrast Result Date: 03/16/2023 Interpreted By: Corie Garza, STUDY: CT ABDOMEN PELVIS W IV CONTRAST; 03/16/2023 5:27 pm INDICATION: Signs/Symptoms:abdominal pain - with oral and IV contrast. COMPARISON: None.. ACCESSION NUMBER(S): [id number] ORDERING CLINICIAN: TIFFANIE MENDEZ TECHNIQUE: Oral contrast [...] Corie Garza 03/16/2023 5:46 PM Dictation workstation: [id number] XR chest 1 view Result Date: 03/06/2023 Interpreted By: Sara Zarate, STUDY: XR CHEST 1 VIEW; 03/06/2023 7:32 am INDICATION: Signs/Symptoms:post op COMPARISON: None ACCESSION NUMBER(S): [id number] ORDERING CLINICIAN: JASON FOSTER TECHNIQUE: Frontal and [...] Sara Zarate 03/06/2023 1:48 PM Dictation workstation: [id number] XR chest 1 view Result Date: 03/05/2023 Interpreted By: Baldomero Hendrickson, STUDY: XR CHEST 1 VIEW; 03/05/2023 3:11 pm INDICATION: CLINICAL INFORMATION: Signs/Symptoms:NG tube placement confirmation. COMPARISON: 03/05/2019 at 745 hours ACCESSION NUMBER(S): [id number] ORDERING CLINICIAN: DESMOND TIRADO TECHNIQUE: Portable chest [...] Baldomero Hendrickson 03/05/2023 3:31 PM Dictation workstation: [id number] XR chest 1 view Result Date: 03/05/2023 Interpreted By: Nya Ahmadi, STUDY: XR CHEST 1 VIEW 03/05/2023 7:51 am INDICATION: Signs/Symptoms:confirm line placement COMPARISON: None available. ACCESSION NUMBER(S): [id number] ORDERING CLINICIAN: SERENA GEORGE TECHNIQUE: AP erect view of the chest FINDINGS: Right arm PICC line terminates in the SVC. There is no pneumothorax. The heart, mediastinum, and lungs are normally visualized. Right arm PICC line terminating in SVC without pneumothorax. No acute cardiopulmonary disease. Signed by: Nya Ahmadi 03/05/2023 7:54 AM Dictation workstation: [id number] Assessment/Plan Principal Problem: Abdominal pain NV, Epigastric [...] -Increase PPI to twice daily Deepika Roy APRN-BLASTING MACHINE OPERATOR Associated attestation - Yani Wong MD - 03/18/2023 11:13 PM EST Seen and examined . I agree with assessment. Labs reviewed. Surgical notes reviewed. Overall after recent vascular surgery abdominal pain is better but is still not able to eat. Proceed with EGD tomorrow continue PPI twice daily and antiemetic as needed. * JAMA Smith - 03/17/2023 11:30 AM EST Abbey Garcia [...] and IV contrast. COMPARISON: None.. ACCESSION NUMBER(S): [id number] ORDERING CLINICIAN: TIFFANIE MENDEZ TECHNIQUE: Oral contrast [...] Corie Garza 03/16/2023 5:46 PM Dictation workstation: [id number] Physical Exam Vitals and nursing note reviewed. [...] in her local emergency room out in [place]. She was discharged after her nausea was relieved last night but this nausea recurred and she was transferred here. I suspect given adequate pain control and control of her nausea that once the inflammation of her surgery resolves she will feel much better. Pancreatitis and bowel ischemia have been ruled out through lab testing and noncontrast CT done yesterday in [place]. I am going to get a CT scan with IV andoral contrast today and start IV fluids and antiemetics as well as analgesics. Unless she starts taking p.o.'s well I will likely place a feeding tube and start enteral feedings during this hospitalization. She will be getting a gastroenterology consultation as well as a foregut surgery consultation. documented in this [facility] Work Phone: 1(404) 462-450302-03-2024 Hospital Discharge instructions* Discharge Instructions* Jason Foster APRN-BETH - 03/20/2023 3:21 PM EST What to [...] up in 1-2 weeks documented in this [facility] Work Phone: 1(222) 118-309202-02-2024 Plan of care note* Care Plan - [...] pain meds throughout the shift Outcome: Progressing [facility]02-02-2024 Miscellaneous Notes* Care Plan - Nathalie Campos [...] of abdominal pain with considerable notes from [facility], and has a history gastric bypass, cholecystectomy, sphincterectomy, and recent median arcuate ligament release on March 05 with vascular surgery. Patient [place] [facility] [place] [facility] [place] [facility] [place] [facility] [place] [place] and sent home, [...] issue which will be best done at [facility] either as inpatient or outpatient, where she has ongoing work, or is a postoperative situation that has been discussed multiple times with the primary operating service (and I have discussed with Tiffanie Mednez CNP with their service and there appears to be a good plan for imaging studies), and can ba admitted by their service). documented in this [facility] Work Phone: 1(535) 236-842102-02-2024 Plan of care note* Care Plan - [...] include. Recommendations to address these barriers include. [facility]02-01-2024 Plan of care note* Care Plan - [...] pain meds throughout the shift Outcome: Progressing [facility] Work Phone: [phone] 842-181802-01-2024 Nurse Note* Andie Lugo RN - 03/18/2023 4:47 PM EST Pt resting quietly in bed, no distres noted [facility]02-01-2024 Nurse Note* Andie Lugo RN - 03/18/2023 3:17 PM EST Pt given IS and instructed how to use, pt verbalized understanding [facility] Work Phone: 1([phone]) 862-841002-01-2024 Nurse Note* Andie Lugo RN - 03/18/2023 2:50 PM EST Ronnie foster cnp into see pt [facility] Work Phone: [phone]) 786-354502-01-2024 Consult note* Nabila Moore RDN, [place] - [...] Energy Needs Total Energy Estimated Needs (kCal): (3401-1491 kcals) Total Estimated Energy Need per Day (kCal/kg): (25-30 kcals/kg) Method for Estimating Needs: adjusted IBW Estimated Protein Needs Total Protein Estimated Needs (g): (68-81g Protein) Total Protein Estimated Needs (g/kg): (1-1.2 g/kg) Method for Estimating Needs: adjusted IBW Estimated Fluid Needs Total Fluid Estimated Needs (mL): (3747-4869 mL fluid) Method for Estimating Needs: 1 [...] Prescription: Individualized Nutrition Prescription Provided for : 6278-8721 kcals, 68-81g Protein, 9545-0418 mL fluid, provided via PO/NG, once diet advanced. Nutrition Interventions: Food and/or Nutrient Delivery Interventions Interventions: Enteral intake Enteral Intake: Modify composition of enteral nutrition, Modify rate of enteral nutrition Goal: When able to initiate Tube feeding, recommend Osmolite 1.5 @ goal rate of 45 mL/hr to [id number] kcals, 68g Protein, and 823 mL free [...] Needed?: 3-5 days Follow up Comment: 03/22/23 [facility]02-01-2024 Consult note* Nabila Moore RDN, [...] 17 g, oral, Daily PRN, Tiffanie Mendez, ENGINEERING SCIENTIST-BLASTING MACHINE OPERATOR thiamine (Vitamin B1) injection 100 mg, 100 mg, intravenous, Daily, Kurt Nguyen MD, 100 mg at 03/18/23 0811 Dietary Orders (From admission, onward) Start Ordered 03/16/23 1508 NPO Diet; Effective now Diet effective now 03/16/23 1509 Estimated Needs: Estimated Energy Needs Total Energy Estimated Needs (kCal): (5498-4483 kcals) Total Estimated Energy Need per Day (kCal/kg): (25-30 kcals/kg) Method for Estimating Needs: adjusted IBW Estimated Protein Needs Total Protein Estimated Needs (g): (68-81g Protein) Total Protein Estimated Needs (g/kg): (1-1.2 g/kg) Method for Estimating Needs: adjusted IBW Estimated Fluid Needs Total Fluid Estimated Needs (mL): (3817-4566 mL fluid) Method for Estimating Needs: 1 [...] Prescription: Individualized Nutrition Prescription Provided for : 4529-6146 kcals, 68-81g Protein, 1618-8611 mL fluid, provided via PO/NG, once diet advanced. Nutrition Interventions: Food and/or Nutrient Delivery Interventions Interventions: Enteral intake Enteral Intake: Modify composition of enteral nutrition, Modify rate of enteral nutrition Goal: When able to initiate Tube feeding, recommend Osmolite 1.5 @ goal rate of 45 mL/hr to [id number] kcals, 68g Protein, and 823 mL free [...] with liver biopsy in April 2020 at [facility] in evaluation of her chronic abdominal pain and intermittent food intolerance. She had a vertical sleeve gastrectomy at [facility] on September 03, 2020 for morbid obesity. She had a diagnostic laparoscopy on March 20, 2021 at [facility] for chronic pain thought to be secondary to an abdominal wall hernia. No hernia was seen at laparoscopy. She complained of gastroesophageal reflux disease and had her vertical sleeve gastrectomy converted to Tan-en-Y gastric bypass at [facility] on January 29, 2022. On March 06, 2022 she had an upper endoscopy at [facility] for epigastric abdominal pain. Her gastrojejunostomy was congested, edematous, with erosions and friable mucosa. The anastomosis was dilated and she was discharged on twice daily PPI. She had an upper endoscopy at [facility] onJune 23, 2022 for epigastric pain. At that time her gastrojejunostomy appeared normal. She continued to complain of abdominal pain and had an upper endoscopy at the [facility] on October 27, 2022. She was found to have food in her stomach and jejunum. There was no evidence of gastrojejunal ulcer. On November 11, 2022 she had laparoscopic closure of internal hernia at the jejunojejunostomy and ERCP through her gastric remnant for her abdominal pain. She was hospitalized at the [facility] on December 06, 2022 for abdominal pain. [...] by laparotomy on March 05, 2023 at [facility]. She was discharged to home [...] medical history of MARSHAL (acute kidney injury) ([facility]), Autoimmune disorder ([facility] Bipolar disorder ([facility]), BPH (benign prostatic hyperplasia), Cerebral aneurysm, Cervical cancer ([facility]/HCC), Cervical disc disease, Chronic kidney disease, CKD (chronic kidney disease), Cognitivedecline, Crohn's disease ([facility]/HCC), Dementia ([facility]/HCC), Dysphagia, Endometrial cancer ([facility]/HCC), Esophageal cancer ([facility]/HCC), Esophageal disease, ESRD (end stage renal disease) ([facility]), Fibromyalgia, primary, Fractures, Gastric cancer ([facility]/HCC), Gender dysphoria, GI (gastrointestinal bleed), Hemodialysis status ([facility]), Hernia, internal, History of peritoneal dialysis, HIV disease ([facility]), Immunocompromised ([facility]), Liver disease, Lumbar disc disease, Mastocytosis, MS [...] INDICATION: Signs/Symptoms:abdominal pain. COMPARISON: None. ACCESSION NUMBER(S): [id number] ORDERING CLINICIAN: TIFFANIE MENDEZ TECHNIQUE: Multiple fluoroscopic spot images were obtained during a single contrast upper GI with KUB. Total fluoroscopy time: 1 minute 32 seconds Radiation exposure (Reference Air Kerma): 99.36 mGy Images: 2 spot images 7 series and 2 delayed AP views of the abdomen FINDINGS: Agency Owner images demonstrate postsurgical changes from previous Tan-en-Y [...] Corie Garza 03/17/2023 5:00 PM Dictation workstation: [id number] Latest Reference Range & Units 03/17/23 07:04 [...] recommendations. Kurt Matos MD * Cheyenne Jansen, ENGINEERING SCIENTIST-BLASTING MACHINE OPERATOR - 03/17/2023 10:29 AM EST Consults Reason [...] medical history of MARSHAL (acute kidney injury) ([facility]), Autoimmune disorder ([facility] Bipolar disorder ([facility]), BPH (benign prostatic hyperplasia), Cerebral aneurysm, Cervical cancer ([facility]/HCC), Cervical disc disease, Chronic kidney disease, CKD (chronic kidney disease), Cognitivedecline, Crohn's disease ([facility]/HCC), Dementia ([facility]), Dysphagia, Endometrial cancer ([facility]/HCC), Esophageal cancer ([facility]), Esophageal disease, ESRD (end stage renal disease) ([facility]), Fibromyalgia, primary, Fractures, Gastric cancer ([facility]), Gender dysphoria, GI (gastrointestinal bleed), Hemodialysis status ([facility]), Hernia, internal, History of peritoneal dialysis, HIV disease ([facility]), Immunocompromised ([facility]), Liver disease, Lumbar disc disease, Mastocytosis, MS (multiple sclerosis) ([facility]), Muscular dystrophy ([facility] Myasthenia gravis ([facility]), Neuromuscular disorder ([facility]), Ovarian cancer ([facility]), Pancreatitis, Peptic ulcer disease, Prematurity, PTSD (post-traumatic stress disorder), Schizophrenia ([facility] Seizure disorder ([facility]), Spinal stenosis, Substanceaddiction ([facility]), Syncope, TIA (transient ischemic attack), Ulcerative colitis ([facility]), Urinary tract infection, Uterine cancer ([facility]), or Vertigo. Surgical History She has a [...] and IV contrast. COMPARISON: None.. ACCESSION NUMBER(S): [id number] ORDERING CLINICIAN: TIFFANIE MENDEZ TECHNIQUE: Oral contrast [...] lobes of the liver. Postsurgical changes of Tna-en-Y gastric bypass. MACRO: none Signed by: Corie Garza 03/16/2023 5:46 PM Dictation workstation: [id number] XR chest 1 view Result Date: 03/06/2023 Interpreted By: Sara Zarate, STUDY: XR CHEST 1 VIEW; 03/06/2023 7:32 am INDICATION: Signs/Symptoms:post op COMPARISON: None ACCESSION NUMBER(S): [id number] ORDERING CLINICIAN: JASON FOSTER TECHNIQUE: Frontal and [...] Sara Zarate 03/06/2023 1:48 PM Dictation workstation: [id number] XR chest 1 view Result Date: 03/05/2023 Interpreted By: Baldomero Hendrickson, STUDY: XR CHEST 1 VIEW; 03/05/2023 3:11 pm INDICATION: CLINICAL INFORMATION: Signs/Symptoms:NG tube placement confirmation. COMPARISON: 03/05/2019 at 745 hours ACCESSION NUMBER(S): [id number] ORDERING CLINICIAN: DESMOND TIRADO TECHNIQUE: Portable chest [...] Baldomero Hendrickson 03/05/2023 3:31 PM Dictation workstation: [id number] XR chest 1 view Result Date: 03/05/2023 Interpreted By: Nya Ahmadi, STUDY: XR CHEST 1 VIEW 03/05/2023 7:51 am INDICATION: Signs/Symptoms:confirm line placement COMPARISON: None available. ACCESSION NUMBER(S): [id number] ORDERING CLINICIAN: SERENA GEORGE TECHNIQUE: AP erect view of the chest FINDINGS: Right arm PICC line terminates in the SVC. There is no pneumothorax. The heart, mediastinum, and lungs are normally visualized. Right arm PICC line terminating in SVC without pneumothorax. No acute cardiopulmonary disease. Signed by: Nya Ahmadi 03/05/2023 7:54 AM Dictation workstation: [id number] Assessment/Plan NV, Epigastric Pain (LFTs are normal. [...] with abdominal pain. 32-year-old female presents to [facility] for chief complaint of abdominal pain, nausea. [...] emergency room close to her home near [place], [place] for further evaluation and was promptly transferred to [facility] for further evaluation and treatment. The hospitalist [...] medical history of MARSHAL (acute kidney injury) ([facility]/HCC), Autoimmune disorder ([facility]/HCC), Bipolar disorder (CMS/HCC), BPH (benign prostatic hyperplasia), Cerebral aneurysm, Cervical cancer (CMS/HCC), Cervical disc disease, Chronic kidney disease, CKD (chronic kidney disease), Cognitivedecline, Crohn's disease ([facility]/HCC), Dementia ([facility]/HCC), Dysphagia, Endometrial cancer ([facility]/HCC), Esophageal cancer ([facility]/HCC), Esophageal disease, ESRD (end stage renal disease) ([facility]), Fibromyalgia, primary, Fractures, Gastric cancer ([facility]/HCC), Gender dysphoria, GI (gastrointestinal bleed), Hemodialysis status ([facility]), Hernia, internal, History of peritoneal dialysis, HIV disease ([facility]/HCC), Immunocompromised ([facility]/HCC), Liver disease, Lumbar disc disease, Mastocytosis, MS (multiple sclerosis) ([facility]/HCC), Muscular dystrophy ([facility]/HCC), Myasthenia gravis ([facility]/HCC), Neuromuscular disorder ([facility]), Ovarian cancer ([facility]), Pancreatitis, Peptic ulcer disease, Prematurity, PTSD (post-traumatic [...] to follow. JAMA Smith [facility] Phone: 1(531) 578-710702-01-2024 Plan of care note* Care Plan - Andie Lugo RN - 03/18/2023 11:05 AM EST The patient's goals for the shift include Free from pain The clinical goals for the shift include decrease nausea [facility] Work Phone: 1(532) 666-312002-01-2024 Nurse Note* Andie Lugo RN - 03/18/2023 7:27 AM EST Assumed care of pt, pt resting quietly in bed, ng to liws , will monitor [facility] Work Phone: 1(653) 628-328501-31-2024 Plan of care note* Care Plan - [...] pain meds throughout the shift Outcome: Progressing [facility] Work Phone: 1(334) 800-499901-31-2024 Consult note* Kurt Matos MD - 03/17/2023 [...] with liver biopsy in April 2020 at [facility] in evaluation of her chronic abdominal pain and intermittent food intolerance. She had a vertical sleeve gastrectomy at [facility] on September 03, 2020 for morbid obesity. She had a diagnostic laparoscopy on March 20, 2021 at [facility] for chronic pain thought to be secondary to an abdominal wall hernia. No hernia was seen at laparoscopy. She complained of gastroesophageal reflux disease and had her vertical sleeve gastrectomy converted to Tan-en-Y gastric bypass at [facility] on January 29, 2022. On March 06, 2022 she had an upper endoscopy at [facility] for epigastric abdominal pain. Her gastrojejunostomy was congested, edematous, with erosions and friable mucosa. The anastomosis was dilated and she was discharged on twice daily PPI. She had an upper endoscopy at [facility] onJune 23, 2022 for epigastric pain. At that time her gastrojejunostomy appeared normal. She continued to complain of abdominal pain and had an upper endoscopy at the [facility] on October 27, 2022. She was found to have food in her stomach and jejunum. There was no evidence of gastrojejunal ulcer. On November 11, 2022 she had laparoscopic closure of internal hernia at the jejunojejunostomy and ERCP through her gastric remnant for her abdominal pain. She was hospitalized at the [facility] on December 06, 2022 for abdominal pain. [...] by laparotomy on March 05, 2023 at [facility]. She was discharged to home [...] Irritable bowel syndrome, Median arcuate ligament syndrome ([facility]/HCC), PCOS (polycystic ovarian syndrome), PONV (postoperative nausea and vomiting), PUD (peptic ulcer disease), and Shortness of breath. She has no past medical history of MARSHAL (acute kidney injury) ([facility] Autoimmune disorder ([facility] Bipolar disorder ([facility]), BPH (benign prostatic hyperplasia), Cerebral aneurysm, Cervical cancer ([facility]), Cervical disc disease, Chronic kidney disease, CKD (chronic kidney disease), Cognitivedecline, Crohn's disease ([facility]), Dementia ([facility]), Dysphagia, Endometrial cancer ([facility]), Esophageal cancer ([facility]), Esophageal disease, ESRD (end stage renal disease) ([facility]), Fibromyalgia, primary, Fractures, Gastric cancer ([facility]), Gender dysphoria, GI (gastrointestinal bleed), Hemodialysis status ([facility]), Hernia, internal, History of peritoneal dialysis, HIV disease ([facility]), Immunocompromised ([facility]), Liver disease, Lumbar disc disease, Mastocytosis, MS (multiple sclerosis) ([facility]), Muscular dystrophy ([facility]), Myasthenia gravis ([facility]), Neuromuscular disorder ([facility]), Ovarian cancer ([facility]), Pancreatitis, Peptic ulcer disease, Prematurity, PTSD (post-traumatic stress disorder), Schizophrenia ([facility]), Seizure disorder ([facility]), Spinal stenosis, Substanceaddiction ([facility]), Syncope, TIA (transient ischemic attack), Ulcerative colitis ([facility]), Urinary tract infection, Uterine cancer ([facility]), or Vertigo. Surgical History She has a [...] INDICATION: Signs/Symptoms:abdominal pain. COMPARISON: None. ACCESSION NUMBER(S): [id number] ORDERING CLINICIAN: TIFFANIE MENDEZ TECHNIQUE: Multiple fluoroscopic spot images were obtained during a single contrast upper GI with KUB. Total fluoroscopy time: 1 minute 32 seconds Radiation exposure (Reference Air Kerma): 99.36 mGy Images: 2 spot images 7 series and 2 delayed AP views of the abdomen FINDINGS: Agency Owner images demonstrate postsurgical changes from previous Tan-en-Y [...] Corie Garza 03/17/2023 5:00 PM Dictation workstation: [id number] Latest Reference Range & Units 03/17/23 07:04 [...] my evaluation and recommendations. Kurt Matos MD [facility] Work Phone: 1(703) 133-484201-31-2024 Nurse Note* Cathy Madera RN - 03/17/2023 6:05 PM EST NG tube re inserted per order. Patient tolerated well. No complications. This nurse requested orderfor xray for placement of NG tube. Order received. Waiting on nail tech to verify placement per order. Will continue to monitor patient to ensure patient safety. [facility] Work Phone: [phone] Plan of care note* Care Plan - [...] pain control, maintain and ensure patient safety. [facility] Work Phone: [phone] Nurse Note* Cathy Madera RN - 03/17/2023 [...] per to re insert NG tube and hooker up to low suction. Will re attempt with patients consent. [facility] Work Phone: 1([phone]) [phone] Nurse Note* Cathy Madera RN - 03/17/2023 12:06 PM EST Patient transported to Xray for placement of NG. Patient off unit. [facility] Work Phone: 1([phone] Nurse Note* Cathy Madera RN - 03/17/2023 11:44 AM EST This nurse notified microbiological lab technician that patient had NG tube placed and needed Xray for placement verification. This nurse messaged Rosa YUN to notify her that NG tube was placed and needed separate order for NG tube placement per microbiological lab technician. Order received. Will continue to monitor patient to ensure patient safety. [facility] Work Phone: [phone] History and physical note* JAMA Judd - 03/17/2023 11:03 AM EST History Of Present Illness This is a 32-year-old female with past medical history of chronic abdominal pain, PCOS, PUD, depression, GERD, IBS, obesity (status post laparoscopic sleeve gastrectomy in August [address] Ku mebMgrs-eq-D gastric bypass 01/29/[address] Kat) and [...] her local hospital and was transferred to [facility] per Dr. Magaña's request. Patient has [...] and IV contrast. COMPARISON: None.. ACCESSION NUMBER(S): [id number] ORDERING CLINICIAN: TIFFANIE MENDEZ TECHNIQUE: Oral contrast [...] Corie Garza 03/16/2023 5:46 PM Dictation workstation: [id number] XR chest 1 view Result Date: 03/06/2023 Interpreted By: Sara Zarate, STUDY: XR CHEST 1 VIEW; 03/06/2023 7:32 am INDICATION: Signs/Symptoms:post op COMPARISON: None ACCESSION NUMBER(S): [id number] ORDERING CLINICIAN: JASON FOSTER TECHNIQUE: Frontal and [...] Sara Zarate 03/06/2023 1:48 PM Dictation workstation: [id number] XR chest 1 view Result Date: 03/05/2023 Interpreted By: Baldomero Hendrickson, STUDY: XR CHEST 1 VIEW; 03/05/2023 3:11 pm INDICATION: CLINICAL INFORMATION: Signs/Symptoms:NG tube placement confirmation. COMPARISON: 03/05/2019 at 745 hours ACCESSION NUMBER(S): [id number] ORDERING CLINICIAN: DESMOND TIRADO TECHNIQUE: Portable chest [...] Baldomero Hendrickson 03/05/2023 3:31 PM Dictation workstation: [id number] XR chest 1 view Result Date: 03/05/2023 Interpreted By: Nya Ahmadi, STUDY: XR CHEST 1 VIEW 03/05/2023 7:51 am INDICATION: Signs/Symptoms:confirm line placement COMPARISON: None available. ACCESSION NUMBER(S): [id number] ORDERING CLINICIAN: SERENA GEORGE TECHNIQUE: AP erect view of the chest FINDINGS: Right arm PICC line terminates in the SVC. There is no pneumothorax. The heart, mediastinum, and lungs are normally visualized. Right arm PICC line terminating in SVC without pneumothorax. No acute cardiopulmonary disease. Signed by: Nya Ahmadi 03/05/2023 7:54 AM Dictation workstation: [id number] Assessment and Plan -Abdominal pain/nausea -Median arcuate [...] Continue home iron supplementation GERD: Continue Pepcid [facility] Work Phone: [phone] History and physical note* JAMA Judd - 03/17/2023 11:03 AM EST History Of Present Illness This is a 32-year-old female with past medical history of chronic abdominal pain, PCOS, PUD, depression, GERD, IBS, obesity (status post laparoscopic sleeve gastrectomy in August [address] Ku uazOipm-ru-Y gastric bypass 01/29/[address] Kat) and [...] her local hospital and was transferred to [facility] per Dr. Magaña's request. Patient has [...] and IV contrast. COMPARISON: None.. ACCESSION NUMBER(S): [id number] ORDERING CLINICIAN: TIFFANIE MENDEZ TECHNIQUE: Oral contrast [...] Corie Garza 03/16/2023 5:46 PM Dictation workstation: [id number] XR chest 1 view Result Date: 03/06/2023 Interpreted By: Sara Zarate, STUDY: XR CHEST 1 VIEW; 03/06/2023 7:32 am INDICATION: Signs/Symptoms:post op COMPARISON: None ACCESSION NUMBER(S): [id number] ORDERING CLINICIAN: JASON FOSTER TECHNIQUE: Frontal and [...] Sara Zarate 03/06/2023 1:48 PM Dictation workstation: [id number] XR chest 1 view Result Date: 03/05/2023 Interpreted By: Baldomero Hendrickson, STUDY: XR CHEST 1 VIEW; 03/05/2023 3:11 pm INDICATION: CLINICAL INFORMATION: Signs/Symptoms:NG tube placement confirmation. COMPARISON: 03/05/2019 at 745 hours ACCESSION NUMBER(S): [id number] ORDERING CLINICIAN: DESMOND TIRADO TECHNIQUE: Portable chest [...] Baldomero Hendrickson 03/05/2023 3:31 PM Dictation workstation: [id number] XR chest 1 view Result Date: 03/05/2023 Interpreted By: Nya Ahmadi, STUDY: XR CHEST 1 VIEW 03/05/2023 7:51 am INDICATION: Signs/Symptoms:confirm line placement COMPARISON: None available. ACCESSION NUMBER(S): [id number] ORDERING CLINICIAN: SERENA GEORGE TECHNIQUE: AP erect view of the chest FINDINGS: Right arm PICC line terminates in the SVC. There is no pneumothorax. The heart, mediastinum, and lungs are normally visualized. Right arm PICC line terminating in SVC without pneumothorax. No acute cardiopulmonary disease. Signed by: Nya Ahmadi 03/05/2023 7:54 AM Dictation workstation: [id number] Assessment and Plan -Abdominal pain/nausea -Median arcuate ligament syndrome, status post ligament release on 03/05/2023 -Obesity: status post laparoscopic sleeve gastrectomy in August [address] Ku and Tan-en-Y gastric bypass 01/29/[address] Kta 1. Abdominal pain/nausea: CT abdomen pelvis with [...] supplementation GERD: Continue Pepcid documented in this [facility] Work Phone: [phone] Nurse Note* Cathy Madera RN - 03/17/2023 10:58 AM EST Patient is ordered NPO this nurse received verbal orders with readback to administer oral medication per Rosa YUN at bedside. Will continue to monitor patient to ensure patient safety. [facility] Work Phone: [phone] Nurse Note* Cathy Madera RN - 03/17/2023 [...] to monitor patient to ensure patient safety. [facility] Work Phone: [phone] Consult note* JAMA Petersen - 03/17/2023 10:29 AM EST Consults Reason For Consult [place] History Of Present Illness Abbey Garcia is a 32 y.o. female presenting with abdominal pain, nausea, vomiting. Patient has past medical history of gastric bypass that was revised with gastric sleeve. She also has a history of median arcuate ligament release with vascular surgery 03/05/2023, MALS. This was completed per Dr Magaña. Following [...] medical history of MARSHAL (acute kidney injury) ([facility]), Autoimmune disorder ([facility] Bipolar disorder ([facility]), BPH (benign prostatic hyperplasia), Cerebral aneurysm, Cervical cancer ([facility]/HCC), Cervical disc disease, Chronic kidney disease, CKD (chronic kidney disease), Cognitivedecline, Crohn's disease ([facility]), Dementia ([facility]), Dysphagia, Endometrial cancer ([facility]), Esophageal cancer ([facility]), Esophageal disease, ESRD (end stage renal disease) ([facility]), Fibromyalgia, primary, Fractures, Gastric cancer ([facility]), Gender dysphoria, GI (gastrointestinal bleed), Hemodialysis status ([facility]), Hernia, internal, History of peritoneal dialysis, HIV disease ([facility]), Immunocompromised ([facility]), Liver disease, Lumbar disc disease, Mastocytosis, MS (multiple sclerosis) ([facility]), Muscular dystrophy ([facility]), Myasthenia gravis ([facility]), Neuromuscular disorder ([facility]), Ovarian cancer ([facility]), Pancreatitis, Peptic ulcer disease, Prematurity, PTSD (post-traumatic stress disorder), Schizophrenia ([facility]), Seizure disorder ([facility]), Spinal stenosis, Substanceaddiction ([facility]), Syncope, TIA (transient ischemic attack), Ulcerative colitis ([facility]), Urinary tract infection, Uterine cancer ([facility]), or Vertigo. Surgical History She has a [...] Grandfather Elan Artino Hypertension Paternal Grandfather Elan Phipps Anesthesia related problems Paternal Grandfather Elan Phipps [...] and IV contrast. COMPARISON: None.. ACCESSION NUMBER(S): [id number] ORDERING CLINICIAN: TIFFANIE MENDEZ TECHNIQUE: Oral contrast [...] Corie Garza 03/16/2023 5:46 PM Dictation workstation: [id number] XR chest 1 view Result Date: 03/06/2023 Interpreted By: Sara Zarate, STUDY: XR CHEST 1 VIEW; 03/06/2023 7:32 am INDICATION: Signs/Symptoms:post op COMPARISON: None ACCESSION NUMBER(S): [id number] ORDERING CLINICIAN: JASON FOSTER TECHNIQUE: Frontal and [...] Sara Zarate 03/06/2023 1:48 PM Dictation workstation: [id number] XR chest 1 view Result Date: 03/05/2023 Interpreted By: Baldomero Hendrickson, STUDY: XR CHEST 1 VIEW; 03/05/2023 3:11 pm INDICATION: CLINICAL INFORMATION: Signs/Symptoms:NG tube placement confirmation. COMPARISON: 03/05/2019 at 745 hours ACCESSION NUMBER(S): [id number] ORDERING CLINICIAN: DESMOND TIRADO TECHNIQUE: Portable chest [...] Baldomero Hendrickson 03/05/2023 3:31 PM Dictation workstation: [id number] XR chest 1 view Result Date: 03/05/2023 Interpreted By: Nya Ahmadi, STUDY: XR CHEST 1 VIEW 03/05/2023 7:51 am INDICATION: Signs/Symptoms:confirm line placement COMPARISON: None available. ACCESSION NUMBER(S): [id number] ORDERING CLINICIAN: SERENA GEORGE TECHNIQUE: AP erect view of the chest FINDINGS: Right arm PICC line terminates in the SVC. There is no pneumothorax. The heart, mediastinum, and lungs are normally visualized. Right arm PICC line terminating in SVC without pneumothorax. No acute cardiopulmonary disease. Signed by: Nya Ahmadi 03/05/2023 7:54 AM Dictation workstation: [id number] Assessment/Plan NV, Epigastric Pain (LFTs are normal. [...] in the presence of Dr. Jah Nguyen. [facility] Work Phone: [phone] Nurse Note* Cathy Madera RN - 03/17/2023 [...] to monitor patient to ensure patient safety. [facility] Work Phone: [phone] Consult note* Lizz Brunson APRN-BLASTING MACHINE OPERATOR - 03/16/2023 5:09 PM EST Consults Reason For Consult Medical management History Of Present Illness Abbey Garcia is a 32 y.o. female presenting with abdominal pain. 32-year-old female presents to [facility] for chief complaint of abdominal pain, nausea. [...] emergency room close to her home near [place], [place] for further evaluation and was promptly transferred to [facility] for further evaluation and treatment. The hospitalist [...] medical history of MARSHAL (acute kidney injury) ([facility] Autoimmune disorder ([facility]), Bipolar disorder ([facility]), BPH (benign prostatic hyperplasia), Cerebral aneurysm, Cervical cancer ([facility]), Cervical disc disease, Chronic kidney disease, CKD (chronic kidney disease), Cognitivedecline, Crohn's disease ([facility]), Dementia ([facility]), Dysphagia, Endometrial cancer ([facility]), Esophageal cancer ([facility]), Esophageal disease, ESRD (end stage renal disease) ([facility]), Fibromyalgia, primary, Fractures, Gastric cancer ([facility]), Gender dysphoria, GI (gastrointestinal bleed), Hemodialysis status ([facility]), Hernia, internal, History of peritoneal dialysis, HIV disease ([facility]), Immunocompromised ([facility]), Liver disease, Lumbar disc disease, Mastocytosis, MS (multiple sclerosis) ([facility]), Muscular dystrophy ([facility] Myasthenia gravis ([facility]), Neuromuscular disorder ([facility]), Ovarian cancer ([facility]), Pancreatitis, Peptic ulcer disease, Prematurity, PTSD (post-traumatic stress disorder), Schizophrenia ([facility]), Seizure disorder ([facility]), Spinal stenosis, Substanceaddiction ([facility]), Syncope, TIA (transient ischemic attack), Ulcerative colitis ([facility]), Urinary tract infection, Uterine cancer ([facility]), or Vertigo. Surgical History She has a [...] Grandfather Elan Artino Hypertension Paternal Grandfather Elan Phipps Anesthesia related problems Paternal Grandfather Elan Phipps [...] consult. Will continue to follow. JAMA Smith [facility] Work Phone: [phone] Emergency department Note* Grecia Oates RN - 03/16/2023 5:00 PM EST Pt is requesting pain medication. MD Barker notified. Grecia Oates RN 03/16/23 170 [facility] Work Phone: [phone] Emergency department Note* Grecia Oates RN - 03/16/2023 5:00 PM EST Pt is requesting pain medication. MD Barker notified. Grecia Oates RN 03/16/23 170 * Grecia Oates RN - 03/16/2023 3:54 PM EST Pt has not been able to sustain orthostatic VS. She is not able to stand at this time. 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 [place] be here for vascular surgery? Pt is A&O x3. States terrible pain in abdomen that doesn't go away. C/O nausea, vomiting, headaches, body chills. * Melisa Barker MD - 03/16/2023 1:37 PM EST Supervisory note: Patient seen in conjunction with HENNY [employer]. Patient presents with abdominal pain. The pain [...] dictation software, please excuse any errors in sonoscope operator. Melisa Barker MD 03/16/231919 * HENNY Miller-C - 03/16/2023 1:37 PM EST HPI Chief Complaint Patient presents with Abdominal Pain Patient is a 32-year-old female history of gastric bypass surgery, median arcuate ligament syndromewith vascular surgery performed on March 05 transferred to [facility] from [facility] in [place] for abdominal pain and nausea vomiting. Patient states the abdominal pain is mid abdominal, no signs of surgical scar infection, states she has been unable to tolerate p.o. intake for 2 days now. She states she feels a burning cramping sensation around where her gastric pouch was placed. ER spoke with Dr. Magaña vascular surgeon who requested for patient to be sent to [facility] for further evaluation. Patient denies recent fever or chills. No other acute complaints at this time. [place] Coma Scale Score: 15 Patient History Past [...] MDM ED Course as of 03/16/23 1640 [facility] Mar 16, 2023 1421 Vascular surgery CURTAIN INSPECTOR wanted to put in the imaging study [...] recognition software. Please excuse any errors of sonoscope operator. My thought process and reason for [...] from: Patient, EMS, attending ER physician at [facility] Social Determinants of Health considered during [...] and has been validated for use at [facility]. Negative results do not preclude COVID-19 infections or Influenza A/B infections, and should not be used as the sole basis for diagnosis, treatment, or other management decisions. If Influenza A/B and RSV PCR results are negative, testing for Parainfluenza virus, Adenovirus and Metapneumovirus is routinely performed for [facility] pediatric oncology and [...] Dr. Magaña transferred ER to ER from [place] for further evaluation of her abdominal pain [...] Ngo RN 03/17/23 0826 documented in this [facility] Work Phone: 1(521) 417-621801-30-2024 Emergency department Note* Grecia Oates RN - 03/16/2023 3:54 PM EST Pt has not been able to sustain orthostatic VS. She is not able to stand at this time. Grecia Oates RN 03/16/23 7988 [facility] Work Phone: [phone]) 331-821401-30-2024 Note* Significant Event - Channing Oconnor DO [...] [facility] and sent home, [...] issue which will be best done at [facility] either as inpatient or outpatient, where she has ongoing work, or is a postoperative situation that has been discussed multiple times with the primary operating service (and I have discussed with Tiffanie Mendez CNP with their service and there appears to be a good plan for imaging studies), and can ba admitted by their service). 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 She was [place] in ER in [place] needs to be here for vascular surgery? Pt is A&O x3. States terrible pain in abdomen that doesn't go away. C/O nausea, vomiting, headaches, body chills. [facility] Work Phone: [phone] Emergency department Note* Linda Ngo RN - 03/16/2023 1:37 PM EST Into assess patient. Patient awake and A&OX4. Patient complains of incisional pain and requested Percocet for relief, rates pain 7/10. Assessed incisional wound on abdomen, incision well approximated, dry and scabbed, no drainage noted. Patient admits to surgery On 03/05/23 for MALS. Medicated with percocet as requested. Linda Ngo RN 03/17/23 08 [facility]01-30-2024 Emergency department Note* Linda Ngo RN - 03/16/2023 1:37 PM EST Report called to DEE Ortiz updated on patient's status. Linda Ngo RN 03/17/23825 [facility] Work Phone: [phone] Physician Emergency department Note* Melisa Barker MD [...] dictation software, please excuse any errors in sonoscope operator. Melisa Barker MD 03/16/231919 [facility] Work Phone: [phone] Physician Emergency department Note* Leatha Paul PA-C - 03/16/2023 1:37 PM EST HPI Chief Complaint Patient presents with Abdominal Pain Patient is a 32-year-old female history of gastric bypass surgery, median arcuate ligament syndromewith vascular surgery performed on March 05 transferred to [facility] from [facility] ER in [place] for abdominal pain and nausea vomiting. Patient states the abdominal pain is mid abdominal, no signs of surgical scar infection, states she has been unable to tolerate p.o. intake for 2 days now. She states she feels a burning cramping sensation around where her gastric pouch was placed. ER spoke with Dr. Magaña vascular surgeon who requested for patient to be sent to [facility] ER for further evaluation. Patient denies recent fever or chills. No other acute complaints at this time. [place] Coma Scale Score: 15 Patient History Past [...] Paternal Grandmother Grandmother Asthma Brother Adán Artino Social History Tobacco Use Smoking status: Never [...] Tue Mar 16, 2023 1421 Vascular surgery CURTAIN INSPECTOR wanted to put in the imaging study [...] recognition software. Please excuse any errors of sonoscope operator. My thought process and reason for [...] from: Patient, EMS, attending ER physician at [facility] Social Determinants of Health considered during [...] and has been validated for use at [facility]. Negative results do not preclude COVID-19 infections or Influenza A/B infections, and should not be used as the sole basis for diagnosis, treatment, or other management decisions. If Influenza A/B and RSV PCR results are negative, testing for Parainfluenza virus, Adenovirus and Metapneumovirus is routinely performed for [facility] pediatric oncology and [...] Dr. Magaña transferred ER to ER from [place] for further evaluation of her abdominal pain [...] Procedure Procedures Leatha Paul PA-C 03/16/23 1643 [facility] Work Phone: 1(707) 772-461001-29-2024 Hospital Discharge instructions Patient Education 03/15/2023 18:18:58 [...] Follow these instructions at home: Medicines Take fuze-tpl-jwcoeia and prescription medicines only as told by [...] Watch your condition for any changes. Take cgsz-izf-xdxdpya and prescription medicines only as told by [...] provider. Document Revised: 03/22/2020 Document Reviewed: 06/12/2019 [employer] Patient Education 2022 [employer]. Follow Up Care 03/15/2023 11:45:15 With:Your surgeon Dr. Magaña Address:Unknown When:03/16/2023 17:30:59 [facility]01-29-2024 Evaluation + Plan noteExtracted from: Title:ED [...] 09:45:00 AM Scheduled Provider:Nasim JOHNSON, Rajni Ballesteros Location:[facility] Appointment Type:URO Office Visit Future Scheduled Tests Radiology* US Renal 06/10/22 [facility]01-24-2024 Hospital Discharge instructions* Discharge Instr - Diet* Yue German RN - 03/10/2023 3:19 PM EST Regular Diet [facility] Work Phone: 1(516) 892-592201-24-2024 History of Present illness Narrative* Keesha Jack [...] Pt cleared for dc. Updates ent to [facility] who the pt has already been active with, F2F, dc summary and AVS sent via [employer], [facility] in 1-2 days. Pt ok to dc. 03/10/23 1318 Discharge Planning Patient expects to be discharged to: [facility] * Tiffanie Mendez, ENGINEERING SCIENTIST-BLASTING MACHINE OPERATOR - 03/10/2023 11:32 AM EST Images from [...] for p.o. Valium and Percocet sent to [facility] pharmacy - Follow-up orders placed for 1 month virtual appoint with Dr. Magaña - Work note faxed to her work as well as uploaded into [email or web address] - Cleared for discharge from vascular standpoint. [...] LE Dressing: Yes LE Dressing Adaptive Equipment: County Assessor, Sock aide Pants Level of Assistance: Setup, [...] functional mobility a short household distance at [facility] for safety with close S. [...] via laparotomy (03/05). Spoke with RN and BLASTING MACHINE OPERATOR regarding plans for consult. Theplan is for [...] acetate cream, , Topical, TID PRN, Alicia Toro APRN-BETH enoxaparin (Lovenox) syringe 40 mg, [...] 4 mg, 4mg, intravenous, q8h PRN, Chrissy Harirs PA-C, 4 mg at 03/09/23 0544 oxyCODONE-acetaminophen (Percocet) 5-325 mg per tablet 1 tablet, 1 tablet, oral, q4h PRN, JAMA Judd oxyCODONE-acetaminophen (Percocet) 5-325 mg per tablet 2 tablet, 2 tablet, oral, q4h PRN, Tiffanie Mendez, JAMA, 2 tablet at 03/09/23 1102 polyethylene glycol [...] 3-5 days Follow up Comment: 03/12/23 * Carmen Auguste Gustavo, FLAQUITO - 03/09/2023 3:02 PM EST Occupational Therapy [...] LE Dressing: Yes LE Dressing Adaptive Equipment: County Assessor, Sock aide Pants Level of Assistance: Setup, [...] by discharge. Outcome: Progressing * Alicia Toro APRN-BLASTING MACHINE OPERATOR - 03/09/2023 10:50 AM EST Abbey Garcia [...] INDICATION: Signs/Symptoms:post op COMPARISON: None ACCESSION NUMBER(S): [id number] ORDERING CLINICIAN: JASON FOSTER TECHNIQUE: Frontal and [...] Sara Zarate 03/06/2023 1:48 PM Dictation workstation: [id number] Physical Exam Constitutional: Appearance: Normal appearance. HENT: [...] TPN on discharge JAMA Granger * Malka Manning, PRINTED CIRCUIT BOARD PREASSEMBLER - 03/09/2023 10:45 AM EST Physical Therapy [...] End: 03/20/23 Resolved: 03/09/23 * Jason Foster, ENGINEERING SCIENTIST-BLASTING MACHINE OPERATOR - 03/09/2023 10:24 AM EST Abbey Garcia [...] Morrell - 03/09/2023 9:24 AM EST [facility] pt is already active with them and are able to continue to provide Rn for tpn and added PT. 03/09/23922 Discharge Planning Patient expects to be discharged to: [facility] * ILIANA Morrell - 03/08/2023 2:52 PM [...] PCP is Dr Jaquan Morrow with [facility], prescriptions filled through [facility] in [place]. Discussion around dc planning needs with the pt stating she will probably benefit from home health PT. Referrals sent to homecare agencies that service where she lives, these agencies include [facility], [address], [facility], [facility], [facility], await responses. 03/08/23 1452 Discharge Planning Patient expects to be discharged to: Home with [facility] * Anam Khoury, PT - 03/08/2023 [...] 03/06/23 Expected End: 03/20/23 * Carmen Chen, FLATLOCK SEWING MACHINE OPERATOR - 03/08/2023 12:47 PM EST Occupational Therapy [...] by discharge. Outcome: Progressing * Alicia Toro, ENGINEERING SCIENTIST-BLASTING MACHINE OPERATOR - 03/08/2023 11:04 AM EST Abbey Garcia [...] INDICATION: Signs/Symptoms:post op COMPARISON: None ACCESSION NUMBER(S): [id number] ORDERING CLINICIAN: JASON FOSTER TECHNIQUE: Frontal and [...] Sara Zarate 03/06/2023 1:48 PM Dictation workstation: [id number] Physical Exam Constitutional: Appearance: Normal appearance. HENT: [...] INDICATION: Signs/Symptoms:post op COMPARISON: None ACCESSION NUMBER(S): [id number] ORDERING CLINICIAN: JASON FOSTER TECHNIQUE: Frontal and [...] Sara Zarate 03/06/2023 1:48 PM Dictation workstation: [id number] Physical Exam Constitutional: Appearance: Normal appearance. HENT: [...] INDICATION: Signs/Symptoms:post op COMPARISON: None ACCESSION NUMBER(S): [id number] ORDERING CLINICIAN: JASON FOSTER TECHNIQUE: Frontal and [...] Sara Zarate 03/06/2023 1:48 PM Dictation workstation: [id number] Physical Exam Constitutional: General: She is not [...] DVT proph Karma Sharpe MD * Jason Jonh Foster, ENGINEERING SCIENTIST-BLASTING MACHINE OPERATOR - 03/06/2023 1:57 PM EST Abbey Garcia [...] 50 mg, oral, BID Continuous medications potassium rmohukoc-U5-6.9%NaCl, 125 mL/hr, Last Rate: 125 mL/hr (03/06/23 [...] on 03/05, impaired ADL's Referred By: Jason Foster APRN-BETH Past Medical [...] recliner for comfort Prior Function: Level of [place]: Independent with ADLs and functional transfers, Independent with homemaking with ambulation ADL Assistance: Independent Homemaking Assistance: Independent Ambulatory Assistance: Independent 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 History of Present Illness: Abbey Garcia is a 32 y.o. year old female patient with Past Medical History of asthma, hypothyroid, PUD, GERD, hypoglycemia, IBS, PCOS, depression, anxiety, headaches, s/p atn-en-y gastric bypass (2020), hysterectomy, appendectomy, cholecystectomy, ex [...] Paternal Grandmother Grandmother Asthma Brother [facility] Medications: potassium zdotebkh-P9-2.9%NaCl, 125 mL/hr, Last Rate: 125 mL/hr (03/06/23 [...] mg, 20 mg, intravenous, BID, Baldomero Richards, [facility], 20 mg at 03/05/23 2143 ferrous sulfate [...] Intake/Output Summary (Last 24 hours) at 03/06/2023 07 Last data filed at 03/06/2023 0700 Gross [...] ICU skin protocol Ethics/Code Status: Full code Hand Rigger: DVT Prophylaxis: Lovenox GI Prophylaxis: pepcid Bowel Regimen: miralax Diet: Clear liquids CVC: none Yoli: yes - left radial Long: yes Restraints: no Dispo: ICU Critical Care Time: 40 minutes Chrissy Harris PA-C documented in this [facility] Work Phone: 1(472) 645-799001-24-2024 Nurse Note* Edilia Darby RN - 03/10/2023 11:57 AM EST Patient with Rt arm dual lumen picc, dressing D&I, red lumen in use without difficulty, purple lumen flushes easily and with positive blood return, curos cap applied. [facility]01-24-2024 Nurse Note* Edilia Darby RN [...] pudding. Complained 08/24 pain percocet was given * Yue Ferris [...] scanned for over 650cc, pt straight cath [id number] * Olga Paz RN - 03/07/2023 5:47 [...] will reach out to vascular doctor and CURTAIN INSPECTOR for the order. * Ron Mancera RN - 03/05/2023 1:58 PM EST Informed PLANT SAFETY ENGINEER to ask Dr. Magaña for admit orders prior to transfer. documented in this [facility] Work Phone: [phone]) 747-249401-24-2024 Nurse Note* Nadia Zee RN - 03/10/2023 11:36 AM EST Long catheter removed [facility]01-24-2024 Nurse Note* Eileen Austin RN - 03/10/2023 12:14 AM EST Blood sugar 79 gave patient hailee crackers and pudding. Complained 08/24 pain percocet was given [facility]01-23-2024 Consult note* Jin Vargas MD - 03/09/2023 [...] CKD (chronic kidney disease), Cognitivedecline, Crohn's disease ([facility]/HCC), Dementia ([facility]/HCC), Dysphagia, Endometrial cancer ([facility]/HCC), Esophageal cancer ([facility]/HCC), Esophageal disease, ESRD (end stage renal disease) ([facility]/HCC), Fibromyalgia, primary, Fractures, Gastric cancer ([facility]/HCC), Gender dysphoria, GI (gastrointestinal bleed), Hemodialysis status ([facility]), Hernia, internal, History of peritoneal dialysis, HIV disease ([facility]/HCC), Immunocompromised ([facility]/HCC), Liver disease, Lumbar disc disease, Mastocytosis, MS (multiple sclerosis) ([facility]/HCC), Muscular dystrophy ([facility]/HCC), Myasthenia gravis ([facility]/HCC), Neuromuscular disorder ([facility]/HCC), Ovarian cancer ([facility]/HCC), Pancreatitis, Peptic ulcer disease, Prematurity, PTSD (post-traumatic stress disorder), Schizophrenia ([facility]/HCC), Seizure disorder ([facility]), Spinal stenosis, Substanceaddiction ([facility]), Syncope, TIA (transient ischemic attack), Ulcerative colitis ([facility]/HCC), Urinary tract infection, Uterine cancer ([facility]), or Vertigo. Surgical History She has a [...] care of this patient. Jin Vargas MD [facility] Work Phone: 1(400) 328-439001-23-2024 Consult note* Jin Vargas MD - 03/09/2023 [...] Irritable bowel syndrome, Median arcuate ligament syndrome ([facility]/HCC), PCOS (polycystic ovarian syndrome), PONV (postoperative nausea and vomiting), PUD (peptic ulcer disease), and Shortness of breath. She has no past medical history of MARSHAL (acute kidney injury) ([facility]), Autoimmune disorder ([facility]), Bipolar disorder ([facility]), BPH (benign prostatic hyperplasia), Cerebral aneurysm, Cervical cancer ([facility]), Cervical disc disease, Chronic kidney disease, CKD (chronic kidney disease), Cognitivedecline, Crohn's disease ([facility]), Dementia ([facility]), Dysphagia, Endometrial cancer ([facility]), Esophageal cancer ([facility]), Esophageal disease, ESRD (end stage renal disease) ([facility]), Fibromyalgia, primary, Fractures, Gastric cancer ([facility]), Gender dysphoria, GI (gastrointestinal bleed), Hemodialysis status ([facility]), Hernia, internal, History of peritoneal dialysis, HIV disease ([facility]), Immunocompromised ([facility]), Liver disease, Lumbar disc disease, Mastocytosis, MS (multiple sclerosis) ([facility]), Muscular dystrophy ([facility] Myasthenia gravis ([facility] Neuromuscular disorder ([facility]), Ovarian cancer ([facility]), Pancreatitis, Peptic ulcer disease, Prematurity, PTSD (post-traumatic stress disorder), Schizophrenia ([facility]), Seizure disorder ([facility]), Spinal stenosis, Substanceaddiction ([facility]), Syncope, TIA (transient ischemic attack), Ulcerative colitis ([facility]), Urinary tract infection, Uterine cancer ([facility]), or Vertigo. 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 She was seen at [facility] by Dr. Kat and underwent an appendectomy [...] She had a CT angiogram recently at [facility] but this is not available for my [...] This is with Dr. Ramos over the [facility]. Currently any oral intake will [...] mg, 20 mg, intravenous, BID, Baldomero Richards, [facility], 20 mg at 03/06/23 0854 [...] 5 mcg, 5 mcg, oral, Daily, Desmond iTrado PA-C, 5 mcg at 03/06/23 0910 mirtazapine [...] Follow up Comment: 03/09/23 documented in this [facility] Work Phone: [phone]) 207-474501-23-2024 Nurse Note* Yue Ferris RN - 03/09/2023 2:22 PM EST Upon rounding right upper arm dual lumen PICC with current CHG dressing dry and intact. One lumen in use, one with brisk blood return and flushes easily, Curos cap intact. [facility]01-22-2024 Plan of care note* Care Plan - Danny Middleton RN - 03/08/2023 11:21 PM EST The patient's goals for the shift include rest The clinical goals for the shift include pain will be controled overnight. [facility]01-22-2024 Miscellaneous Notes* Care Plan - [...] Promote/optimize nutrition Outcome: Progressing Flowsheets (Taken 03/08/2023 0895) Promote/optimize nutrition: Monitor/record intake including meals Consume [...] Procedures Release Median Arcuate Ligament by LAPAROTOMY [id number] - CT UNLISTED PX ABDOMEN MUSCULOSKELETAL SYSTEM Surgeons * Sherry Magaña - Primary Resident/Fellow/Other Swimming Pool Installer And Servicer: Surgeon(s) and Role: Procedure Summary Anesthesia: General ASA: III Anesthesia Staff: Anesthesiologist: Serena George DO OFFICE SUPPORT ASSOCIATE: Maricruz Yip APRN-THOMAS Estimated Blood Loss: 2mL [...] EXAM Sherry Magaña MD 03/05/2023 1125 Staff: Dyslexia Teacher: Mary Mccabe RN; Natalie Young RN Scrub Person: Nadia Escobedo; Thu Ford Drains and/or Catheters: NG/OG/Feeding Tube NG - [place] sump 16 Fr Right nostril (Active) Tube [...] MEMBRANE, SEPRAFILM, 5 X 6 IN - [id number] Implanted Findings: heavily inflammed ligamentous tissues and [...] present and scrubbed for the entire procedure. [facility] documented in this [facility] Work Phone: 1(360) 686-396101-22-2024 Plan of care note* Care Plan - [...] meds throughout the shift Outcome: Progressing . [facility]01-22-2024 Plan of care note* Care Plan - Olga Paz RN - 03/08/2023 2:27 AM EST The patient's goals for the shift include rest The clinical goals for the shift include increase activity Over the shift, the patient did not make progress toward the following goals. Barriers to progression include weak/pain. Recommendations to address these barriers include administer medications/interventions as ordered. [facility] Work Phone: 1(410) 139-195201-22-2024 Nurse Note* Olga Paz RN - 03/08/2023 1:[address] Oconnor notified of retained urine. Order to insert long catheter. 16F long catheter placed, clear yellow urine return. Pt tolerated well. [facility]01-22-2024 Nurse Note* Olga Paz RN - 03/08/2023 12:48 AM EST Pt unable to urinate but continues to have an urge to do so. Bladder scan performed with 1152ml found. Page out to hospitalist. [facility] Work Phone: [phone]) 482-966601-21-2024 Nurse Note* Nadia Zee RN - 03/07/2023 5:09 PM EST Pt with 10cc urine output since long removed, bladder scanned for over 650cc, pt straight cath [id number] [facility] Work Phone: [phone]) 286-349401-21-2024 Plan of care note* Care Plan - Nadia Zee RN - 03/07/2023 8:50 AM EST The patient's goals for the shift include rest The clinical goals for the shift include increase activity Over the shift, the patient did not make progress toward the following goals. Barriers to progression include . Recommendations to address these barriers include . [facility] Work Phone: 1(296) 339-712201-21-2024 Nurse Note* Olga Paz RN - 03/07/2023 5:47 AM EST Long catheter removed per order. Pt tolerated well [facility] Work Phone: 1(369) 421-116601-20-2024 Plan of care note* Care Plan - Olga Paz RN - 03/06/2023 8:57 PM EST The patient's goals for the shift include rest The clinical goals for the shift include increase activity Over the shift, the patient did not make progress toward the following goals. Barriers to progression include weak/pain. Recommendations to address these barriers include encouragement/administer medications/interventions as ordered. [facility] Work Phone: [phone]) 538-894601-20-2024 Nurse Note* Vic Gilliland RN - 03/06/2023 4:22 PM EST Seeking clarification of appropriate disposition of patient and possible transfer to SDU. Patient understands possibility of transfer. 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 She was seen at [facility] by Dr. Kat and underwent an appendectomy [...] She had a CT angiogram recently at [facility] but this is not available for my [...] This is with Dr. Ramos over the [facility]. Currently any oral intake will [...] 650 mg, rectal, q4h PRN, Jason Foster, ENGINEERING SCIENTIST-BLASTING MACHINE OPERATOR albuterol 2.5 mg /3 mL (0.083 %) [...] mg, 20 mg, intravenous, BID, Baldomero Richards, [facility], 20 mg at 03/06/23 0854 [...] 1 tablet, oral, q4h PRN, Jason Mckeon ENGINEERING SCIENTIST-BLASTING MACHINE OPERATOR polyethylene glycol (Glycolax, Miralax) packet 17 g, [...] Needed?: 3-5 days Follow up Comment: 03/09/23 [facility]01-20-2024 Plan of care note* Care Plan [...] Recommendations to address these barriers include steroids. [facility] Work Phone: 1(781) 518-441001-20-2024 Nurse Note* Vic Gilliland RN - 03/06/2023 9:01 AM EST Returned to bed with assist of two. Head of bed elevated 45 degrees. [facility] Work Phone: 1([phone]) 951-585301-19-2024 Nurse Note* Ron Mancera RN - 03/05/2023 4:[address] Magaña at bedside, informed of the muscle spasm and administering PRN diazepam. No new orders placed. Plan to remove NGT tomorrow morning. [facility] Work Phone: [phone]) 170-740901-19-2024 Plan of care note* Care Plan - [...] 1549 by Ron Mancera RN Outcome: Progressing [facility] Work Phone: [phone]) 979-217501-19-2024 History and physical note* Desmond Tirado PA-C - 03/05/2023 2:49 PM EST [facility] Medicine Date: 03/05/2023 Patient: Abbey [...] Paternal Grandmother Grandmother Asthma Brother [facility] Medications: Current Facility-Administered Medications: acetaminophen (Tylenol) tablet 650 mg, 650 mg, oral, q4h PRN OR acetaminophen (Tylenol) oral liquid 650 mg, 650 mg, oral, q4h PRN OR acetaminophen (Tylenol) suppository 650 mg, 650 mg, rectal, q4h PRN, Jason Foster, ENGINEERING SCIENTIST-BETH HYDROmorphone (Dilaudid) injection 0.5 mg, 0.5 mg, [...] ICU skin protocol Ethics/Code Status: Full code Hand Rigger: DVT Prophylaxis: none GI Prophylaxis: pepcid Bowel Regimen: miralax Diet: NPO CVC: none [place]: yes - left radial Long: yes Restraints: no Dispo: ICU Critical Care Time: 60 minutes spent in preparing to see patient (I.e.labs,imaging, etc.), documentation, discussion plan of care with patient/family/caregiver, and/ or coordination of care with multidisciplinary team including the attending. Time does not include completion of procedure time. Desmond Tirado PA-C [facility] Work Phone: 1(244) 911-846301-19-2024 History and physical note* Desmond Tirado PA-C - 03/05/2023 2:49 PM EST [facility] Critical Care Medicine Date: 03/05/2023 Patient: Abbey [...] Paternal Grandmother Grandmother Asthma Brother [facility] Medications: Current Facility-Administered Medications: acetaminophen (Tylenol) [...] 17.2 mg, 2 tablet, oral, BID, Jason P Desmond, ENGINEERING SCIENTIST-BLASTING MACHINE OPERATOR Review of Systems: Review of Systems Constitutional: [...] ICU skin protocol Ethics/Code Status: Full code Hand Rigger: DVT Prophylaxis: none GI Prophylaxis: pepcid Bowel Regimen: miralax Diet: NPO CVC: none [place]: yes - left radial Long: yes Restraints: no Dispo: ICU Critical Care Time: 60 minutes spent in preparing to see patient (I.e.labs,imaging, etc.), documentation, discussion plan of care with patient/family/caregiver, and/ or coordination of care with multidisciplinary team including the attending. Time does not include completion of procedure time. 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 She was seen at [facility] by Dr. Kta and underwent an appendectomy when she arrived [...] She had a CT angiogram recently at [facility] but this is not available for my [...] This is with Dr. Ramos over the [facility]. Currently any oral intake will [...] to review the CT angiogram done at [facility]. She is going to undergo a celiac [...] with Dr. Deacon Kat. documented in this [facility] Work Phone: 1([phone]) 335-386801-19-2024 Nurse Note* Ron Mancera RN - 03/05/2023 2:01 PM EST Patient in the unit from PACU, unable to transfer in [facility]. No admit order yet. PACU Rns saw the warning note when trying to transfer the patient without admit orders. PACU staff will reach out to vascular doctor and CURTAIN INSPECTOR for the order. [facility] Work Phone: 1([phone]) 486-233701-19-2024 Nurse Note* Ron Mancera RN - 03/05/2023 1:58 PM EST Informed PLANT SAFETY ENGINEER to ask Dr. Magaña for admit orders prior to transfer. [facility] Work Phone: [phone] 109-880001-19-2024 Note* Perioperative Nursing Note - Samantha Fields RN - 03/05/2023 1:52 PM EST Patient meets PACU discharge criteria. [facility]01-19-2024 Note* Perioperative Nursing Note - Samantha Fields RN - 03/05/2023 1:07 PM EST Patient to PACU bay 7 with left radial art line in place. Zeroed and waveforms appropriate. Clean/dry and intact. VSS. [facility] Work Phone: [phone] 354-720601-19-2024 Note* Op Note - Sherry Magaña MD [...] Procedures Release Median Arcuate Ligament by LAPAROTOMY 16817 - CT UNLISTED PX ABDOMEN MUSCULOSKELETAL SYSTEM Surgeons * Sherry Magaña - Primary Resident/Fellow/Other Swimming Pool Installer And Servicer: Surgeon(s) and Role: Procedure Summary Anesthesia: General ASA: III Anesthesia Staff: Anesthesiologist: Serena George DO OFFICE SUPPORT ASSOCIATE: Maricruz Yip APRN-THOMAS Estimated Blood Loss: 2mL [...] EXAM Sherry Magaña MD 03/05/2023 1125 Staff: Dyslexia Teacher: Mary Mccabe RN; Natalie Young RN Scrub Person: Nadia Escobedo; Thu Ford Drains and/or Catheters: NG/OG/Feeding Tube NG - [place] sump 16 Fr Right nostril (Active) Tube [...] MEMBRANE, SEPRAFILM, 5 X 6 IN - [id number] Implanted Findings: heavily inflammed ligamentous tissues and [...] scrubbed for the entire procedure. 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 She was seen at [facility] by Dr. Kat and underwent an appendectomy [...] She had a CT angiogram recently at [facility] but this is not available for my [...] This is with Dr. Ramos over the [facility]. Currently any oral intake will [...] to review the CT angiogram done at [facility]. She is going to undergo a celiac [...] UGIS. Will discuss with Dr. Deacon Kat. [facility] Work Phone: [phone] 599-628612-14-2023 NoteHNO ID: [id number] Author: Rylee Thacker APRN.BLASTING MACHINE OPERATOR Service: ? Author Type: Nurse Practitioner Type: Progress Notes Filed: 01/28/2023 3:12 PM Note Text: [facility]oint[facility]Bar[facility]12-[facility] Miscellaneous Notes* Telephone Encounter - Laura Rodas RN - 01/18/2023 9:20 AM EST [facility] to confirm received potassium orders for (K-2.9). No answer and left message for Thea medicine assistant [facility]. (Do not feel Dr. Kat is managing TPN as well) * Telephone Encounter - Dorita Manning - 01/15/2023 11:47 AM EST [facility] called regarding potassium level. Level was 2.9. Patient already on max dose of potassium allowed with her TPN. They are asking for recommendations # [phone] documented in this encounterTr[facility]ull [facility]11-27-2023 Miscellaneous Notes* Telephone Encounter - Joaquín Garza [...] if so ok to call her back [phone] Ok to leave a message documented in this encounterTrumbull Regional Medical Center11-27-2023 Miscellaneous Notes* Telephone Encounter - Fern Jonas LPN - 01/11/2023 10:49 AM EST Surg request placed, pt aware, instructions given verbally and via mychart, all questions and concerns addressed. documented in this encounterTrumbull Regional Medical Center11-27-2023 NoteHNO ID: [id number] Author: Fern Jonas LPN Service: ? Author Type: LICENSED NURSE Type: Progress Notes Filed: 01/11/2023 10:42 AM Note Text: Please verify and cosign [facility] History of Present illness Narrative* Fern Jonas LPN - 01/11/2023 10:37 AM EST Please verify and cosign Fern Jonas LPN documented in this encounterTrumbull Regional Medical Center11-24-2023 NoteBarney [facility] Center11-24-2023 History of Present illness Narrative* [...] drug-related behaviors? (-) Illicit drug use? (+) [place] [facility] Patient denies loss of bowel [...] Bilateral arthroscopic knee surgery- was catcher in [employer] PAST SURGICAL HISTORY OF 08/2020 gastric sleeve [...] which included preparing to see the patient, oqex-li-jiwi patient care, completing clinical documentation, obtaining and/or reviewing separately obtained history, counseling and educating the patient/family/caregiver, ordering medications, stevan ts, or procedures, communicating with other HCPs (not separately reported), independently interpreting results (not separately reported), communicating results to the patient/family/caregiver, and care coordination (not separately reported). Vic Ramos MD January 08, 2023 documented in this encounterTrumbull Regional Medical Center11-22-2023 Miscellaneous Notes* Telephone Encounter - Clarence Hargrove LPN - 01/06/2023 4:05 PM EST Spoke with patient Virtual visit for upper abdominal pain Diagnostic work up through [facility] * Telephone Encounter - Arianna MendozaMarialuisa - 01/06/2023 3:55 PM EST Patient states [...] to pain for visit. documented in this encounterTrumbull [facility] Medical Center11-16-2023 Hospital Discharge instructions Patient Education 12/31/2022 16:02:59 [...] oral rehydration solution (ORS). This is an lnyj-lik-nynbnpl medicine that helps return your body to [...] drinks, sports drinks, and soda. Eat bland, opqg-cy-gljcdf foods in small amounts as you are able. These foods include bananas, applesauce, rice, lean meats, toast, and crackers. Avoid alcohol. Avoid spicy or fatty foods. Medicines Take eoit-cin-valslsa and prescription medicines only as told by your health care provider. If you were prescribed an antibiotic medicine, take it as told by your health care provider. Do notstop using the antibiotic even if you start to feel better. General instructions Wash your hands often using soap and water. If soap and water are not available, use a hand floor covering layer. Others in the household should wash their [...] soap and water are not available, usehand floor covering layer. Contact a health care provider if your diarrhea gets worse or you have new symptoms. Get help right away if you have signs of dehydration. This information is not intended to replace advice given to you by your health care provider. Make sure you discuss any questions you have with your health care provider. Document Revised: 08/13/2021 Document Reviewed: 08/13/2021 [employer] Patient Education 2022 [employer]. 12/31/2022 16:02:59 Abdominal Pain, Adult Abdominal Pain, [...] Follow these instructions at home: Medicines Take tuhp-odw-fthnfea and prescription medicines only as told by [...] Watch your condition for any changes. Take jdaz-svw-qzazbfe and prescription medicines only as told by [...] provider. Document Revised: 03/22/2020 Document Reviewed: 06/12/2019 [employer] Patient Education 2022 [employer]. Follow Up Care 12/31/2022 12:31:54 With:Jaquan Morrow Address: [address] [place] [address] Business (1) When:01/03/2023 15:35:16 [facility]11-16-2023 Evaluation + Plan noteExtracted from: Title:ED [...] Date:01/20/2023 10:00:00 AM Scheduled Provider:Rajni Rouse MD Location:[facility] Appointment Type:URO Office Visit Future Scheduled Tests Radiology* US Renal 06/10/22 [facility]11-13-2023 Miscellaneous Notes* Telephone Encounter - Shanique Manning HUC - 12/28/2022 4:05 PM EST BMI Incoming Patient Nursing Line Call Summary: Situation/Concerns Melisa [facility] called [phone] called and said Abbey needs a RTWletter [...] Telephone Encounter. CHRIS Katz documented in this encounterTrumbull Regional Medical Center10-30-2023 History of Present illness Narrative* Deacon Kat [...] visit. Either the patient or their legal outside dealer sales representative has been informed of the [...] opinion. Deacon Kat MD documented in this encounterTrumbull Regional Medical Center10-30-2023 NoteBarney [facility]10-25-2023 NoteBar[facility]10-25-2023 NoteBar[facility]10-25-2023 NoteBar[facility]10-24-2023 Note [facility]10-23-2023 NoteBar[facility]10-23-2023 NoteBar[facility]10-23-2023 NoteBar[facility] 12-04-2022 History and physical note* [...] was started since her last admission to [facility] last week. Patient's weight has [...] Bilateral arthroscopic knee surgery- was catcher in [employer] PAST SURGICAL HISTORY OF 08/2020 gastric sleeve [...] 12/16/2022 Time: 2:19 PM documented in this encounterTrumbull Regional Medical Center10-19-2023 Miscellaneous Notes* Telephone Encounter - Oliva Dobbs RN - 12/03/2022 2:00 AM EDT BMI SPECIALTY CARE COORDINATION TELEPHONE ENCOUNTER Patient hospitalized 11/27 unsure if d/c. Referred to Dr Kat who referred to Dr Zamorano [facility] of hypothyroidism, HTN, gastric ulcer, GERD, [...] for MALS- plans for surgical intervention at [facility] Consult scheduled with Dr Zamorano on 12/04. Will r/s if pt still in house. 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 referral to GI specialist , on TPN documented in this encounterTrumbull Regional Medical Center10-17-2023 Miscellaneous Notes* Telephone Encounter - Li Kimball RN - 12/01/2022 2:32 PM EDT Patient remains admitted at [facility]. Patient received a PICC line for home TPN to bridge her to surgery. Patient is scheduled with Dr. Zamorano for virtual consult 12/04/2022. Patient with increasednausea with TPN, [facility] continues to adjust medications. Li Kimball RN documented in this encounterTrumbull Regional Medical Center10-14-2023 NoteHNO ID: [id number] Author: Note, Interface Service: ? Author Type: ? Type: Progress Notes Filed: 11/28/2022 5:10 AM Note Text: Epic Scheduled Downtime: 11/28/2022 1:00:00 AM to 11/28/2022 1:28:00 [facility]10-14-2023 NoteHNO ID: [id number] Author: Note, Interface Service: ? Author Type: ? Type: Progress Notes Filed: 11/28/2022 3:45 AM Note Text: Epic Scheduled Downtime: 11/28/2022 1:00:00 AM to 11/28/2022 1:28:00 [id number] NoteHNO ID: [id number] Author: Note, Interface Service: ? Author Type: ? Type: Progress Notes Filed: 11/28/2022 3:27 AM Note Text: Epic Scheduled Downtime: 11/28/2022 1:00:00 AM to 11/28/2022 1:28:00 [facility]10-12-2023 NoteHNO ID: [id number] Author: Quyen Deshpande RN Service: ? Author Type: Registered Nurse Type: Progress Notes Filed: 11/26/2022 10:37 AM Note Text: Patient in office for hydration infusion. Patient tolerated infusion well. [id number] Miscellaneous Notes* Telephone Encounter - Kristin Hu RN - 11/25/2022 12:55 PM EDT Left message confirming pts appt tomorrow in the chronic care clinic for hydration. documented in this encounterTrumbull Regional Medical Center10-09-2023 Miscellaneous Notes* Telephone Encounter - Li Kimball RN - 11/23/2022 2:26 PM EDT Mesenteric ultrasound scheduled for 11/26/2022 at [facility], patient notified. Li Kimball RN * Telephone Encounter - Li Kimball RN - 11/23/2022 12:31 PM EDT I spoke to the patient's and advised that I have a request out to [facility] for IV hydration and Dr. Kat has [...] pain. Li Kimball RN documented in this encounterTrumbull Regional Medical Center10-08-2023 [facility] 11-22-2022 [facility] [id number] NoteBoston Nursery For Blind BabiesOsrmvtvs02-47-5631 NoteHNO ID: [id number] Author: Rajni Walsh RN Service: ? Author Type: Registered Nurse Type: Nursing Progress Note Filed: 11/18/2022 10:13 AM Note Text: Other: C/o ultram not working.Will see about another order.Urine was sent to lab.Will reassess.[id number] NoteBoston Nursery For Blind [id number] Miscellaneous Notes* Telephone Encounter - Li Kimball RN - 11/16/2022 11:51 AM EDT Patient called and states she continues to have abdominal pain and is asking for a Tramadol prescription. Patient also asking for IV fluids as her fluid intake is still not normal. Li Kimball RN documented in this encounterTrumbull Regional Medical Center09-29-2023 NoteHNO ID: [id number] Author: Pablo Lebron PSYD Service: ? Author Type: Psychologist Type: Progress Notes Filed: 11/13/2022 8:36 AM Note Text: Assessment was conducted over the phone due to pt's technical difficulties. Patient is a resident of [place], and completed the assessment over the phone in [place]. Psychologist is licensed and stationed in [place]. Informed consent was discussed and verbal assent [...] Focused Psychotherapy, Supportive Therapy PROGRESS TO DATE: Bee Tender Progress: Stable Short Term Condition: Stable GOALS/OBJECTIVES/INTERVENTIONS: To identify and implement tools for effectively managing symptoms of anxiety, stress, and low mood. Approximately 40 minutes were spent with the patient doing therapy. Pablo Lebron [facility]DB[facility]09-28-2023 [facility]09-28-2023 NoteBoston Nursery For Blind [id number] NoteBoston Nursery For Blind [id number] History of Past illness Narrative* Problem Noted [...] of this encounter (statuses as of 11/17/2022) [facility]09[facility] History of Past illness Narrative* Problem Noted [...] of this encounter (statuses as of 11/18/2022) [facility] History of Past illness Narrative* Problem Noted [...] of this encounter (statuses as of 11/21/2022) [facility] History of Past illness Narrative* Problem Noted [...] of this encounter (statuses as of 11/24/2022) [facility] of Past illness Narrative* Problem Noted [...] of this encounter (statuses as of 11/25/2022) [facility] History of Past illness Narrative* Problem Noted [...] of this encounter (statuses as of 11/27/2022) [facility] of Past illness Narrative* Problem Noted [...] of this encounter (statuses as of 12/02/2022) [facility] of Past illness Narrative* Problem Noted [...] of this encounter (statuses as of 12/03/2022) [facility] of Past illness Narrative* Problem Noted [...] of this encounter (statuses as of 12/15/2022) [facility] of Past illness Narrative* Problem Noted [...] of this encounter (statuses as of 12/15/2022) [facility] of Past illness Narrative* Problem Noted [...] of this encounter (statuses as of 12/17/2022) [facility] of Past illness Narrative* Problem Noted [...] of this encounter (statuses as of 12/31/2022) [facility] of Past illness Narrative* Problem Noted [...] of this encounter (statuses as of 01/06/2023) [facility] of Past illness Narrative* Problem Noted [...] of this encounter (statuses as of 01/08/2023) [facility] of Past illness Narrative* Problem Noted [...] of this encounter (statuses as of 01/11/2023) [facility] of Past illness Narrative* Problem Noted [...] of this encounter (statuses as of 01/11/2023) [facility] of Past illness Narrative* Problem Noted [...] of this encounter (statuses as of 01/12/2023) [facility] of Past illness Narrative* Problem Noted [...] of this encounter (statuses as of 01/18/2023) [facility] of Past illness Narrative* Problem Noted [...] of this encounter (statuses as of 01/18/2023) [facility] of Past illness Narrative* Problem Noted [...] of this encounter (statuses as of 04/07/2023) [facility] of Past illness Narrative* Problem Noted [...] of this encounter (statuses as of 05/05/2023) [facility] of Past illness Narrative* Problem Noted [...] of this encounter (statuses as of 05/07/2023) [facility] of Past illness Narrative* Problem Noted [...] of this encounter (statuses as of 05/10/2023) [facility] of Past illness Narrative* Problem Noted [...] of this encounter (statuses as of 05/18/2023) [facility] of Past illness Narrative* Problem Noted [...] of this encounter (statuses as of 05/27/2023) [facility] of Past illness Narrative* Problem Noted [...] of this encounter (statuses as of 05/28/2023) [facility] of Past illness Narrative* Problem Noted [...] of this encounter (statuses as of 05/28/2023) [address]27-2023 History of Past illness Narrative* Problem Noted [...] of this encounter (statuses as of 05/30/2023) [facility] of Past illness Narrative* Problem Noted [...] of this encounter (statuses as of 06/02/2023) [facility]09-26-2023 NoteBarney [facility]09-25-2023 Miscellaneous Notes* Telephone Encounter - Li Kimball RN - 11/09/2022 4:40 PM EDT Patient notified that surgery has to be moved to Wednesday as gastroenterology is no longer available to assist. I encouraged the patient to come to [place] ED if pain worsens or she develops an newor other concerning symptoms. Patient stated understanding and had no further questions. Li Kimball RN documented in this encounterTrumbull Regional Medical Center09-23-2023 [facility] 11-06-2022 Miscellaneous Notes* Telephone Encounter - Li Kimball RN - 11/06/2022 5:[address] Kat notified of HIDA scan results and patient current condition. Tentative surgery for 11/11/2022 pending GI availability. Patient notified of possible surgery for next week if nothing is completed over the weekend. iL Kimball RN * Telephone Encounter - Li Kimball RN - 11/06/2022 9:32 AM EDT Patient called and states she is unable to even tolerate ice chips, develops intense pain within 10-15 minutes. Patient remains admitted to [facility] and is scheduled for a HIDA [...] questions. Li Kimball RN documented in this encounterTrumbull Regional Medical Center09-22-2023 [facility] 11-06-2022 [facility] [id number] History of Present illness Narrative* Agustin Sheets, [...] 10:54 AM PAGER/CONTACT #: documented in this encounterTrumbull Regional Medical Center09-20-2023 History of Present illness Narrative* Deacon Kat [...] healthy appearing mucosa. This was traversed. The dhlcg-vg-szovnbr limb was characterized by healthy appearing mucosa. [...] YELLOW YELLOW APPEARANCE, URINE CLEAR CLEAR Specific [place], Urine 1.010 - 1.025 1.020 PH URINE [...] Moderate Deacon Kat MD documented in this encounterTrumbull Regional Medical Center09-20-2023 NoteBarney [facility]09-18-2023 Miscellaneous Notes* Telephone Encounter - Haroon Seay [...] on Haroon Seay APRN.CNP documented in this encounterTrumbull Regional Medical Center09-18-2023 Emergency department Note * Dayanara Montana RN - 11/02/2022 11:55 AM EDT Pt states that her pain is getting worse along with her nausea [facility]09-18-2023 Emergency department Note* Dayanara Montana [...] CT scans showing possible kidney stones near [facility], here today because hands turned brown) JANINE Garcia is a 32 y.o. female who presents with abdominal pain. Patient has had multiple weeks of abdominal pain. She has had multiple ER visits in [facility]. She had multiple CT scans [...] Walker MD 11/02/22 1325 documented in this encounterUpper Valley Medical Center09-18-2023 Emergency department Note* Dayanara Montana RN - 11/02/2022 11:44 AM EDT Pt requesting to use the restroom and wants assistance. Stand by assist given pt walk with a slow steady gait at this time without difficulty [facility]09-18-2023 Physician Emergency department Note* Dimitri Walker MD - 11/02/2022 10:55 AM EDT DEPARTMENT OF EMERGENCY MEDICINE CHIEF COMPLAINT Abdominal Pain (Reports has been seen a couple of times with CT scans showing possible kidney stones near [facility], here today because hands turned brown) JANINE Garcia is a 32 y.o. female who presents with abdominal pain. Patient has had multiple weeks of abdominal pain. She has had multiple ER visits in [facility]. She had multiple CT scans [...] follow up with her gastric bypass surgeon. Dimirti Walker MD 11/02/22 1325 [facility]09-16-2023 Hospital Discharge instructions* Discharge Instructions* [...] sent through Care Everywhere. * Back: Strain (Sudanese) [facility] 10[facility]26[facility]2022 [id number] History of Past illness Narrative* Problem Noted [...] of this encounter (statuses as of 10/28/2022) [facility]09-10-2023 History of Past illness Narrative* Problem Noted [...] of this encounter (statuses as of 11/03/2022) [facility]09-10-2023 History of Past illness Narrative* Problem Noted [...] of this encounter (statuses as of 11/03/2022) [facility]09[facility]10[facility]20[facility] History of Past illness Narrative* Problem Noted [...] of this encounter (statuses as of 11/03/2022) [facility]09[facility]10[facility]20[facility] History of Past illness Narrative* Problem Noted [...] of this encounter (statuses as of 11/03/2022) [facility]09[facility]10[facility] History of Past illness Narrative* Problem Noted [...] of this encounter (statuses as of 11/04/2022) [facility]09[facility]10[facility] History of Past illness Narrative* Problem Noted [...] of this encounter (statuses as of 11/04/2022) [facility]09[facility]10[facility] History of Past illness Narrative* Problem Noted [...] of this encounter (statuses as of 11/05/2022) [facility]09[facility]10[facility] History of Past illness Narrative* Problem Noted [...] of this encounter (statuses as of 11/05/2022) [facility]09[facility]10[facility] History of Past illness Narrative* Problem Noted [...] of this encounter (statuses as of 11/06/2022) [facility]09[facility] History of Past illness Narrative* Problem Noted [...] of this encounter (statuses as of 11/06/2022) [facility]09-10[facility]2023 History of Past illness Narrative* Problem Noted [...] of this encounter (statuses as of 11/10/2022) [facility]09-10-2023 NoteThe [facility]opedic Specialty [id number] Miscellaneous Notes* Telephone Encounter - Li Kimball [...] nausea vomiting and pain return call to [phone] documented in this encounterTr[facility]ull [facility]09[facility]23 Hospital Discharge instructions Patient Education 10/20/2022 12:40:07 [...] medicines. These include steroids, antibiotics, and some iyez-gss-wnmbbjf medicines, such as aspirin or ibuprofen. Having [...] Follow these instructions at home: Medicines Take mccn-ejc-yherpce and prescription medicines only as told by [...] provider. Document Revised: 06/07/2021 Document Reviewed: 06/07/2021 [employer] Patient Education 2022 [employer]. 10/20/2022 12:40:07 Abdominal Pain, Adult Abdominal Pain, [...] Follow these instructions at home: Medicines Take mktk-gbd-vnepoyw and prescription medicines only as told by [...] Watch your condition for any changes. Take kajt-xyc-opgcjlo and prescription medicines only as told by [...] provider. Document Revised: 03/22/2020 Document Reviewed: 06/12/2019 [employer] Patient Education 2022 [employer]. Follow Up Care 10/20/2022 08:06:19 With:Jaquan Morrow Address: [address] [place], [place] [phone] Business (1) When:10/23/2022 12:06:27 [facility]09-04-2023 Evaluation + Plan noteExtracted from: Title:ED Note Author:Earnest Jett DO Date:10/19 Abdominal pain (R10.9: Unspe cified abdominal pain) Ordered: acetaminophen-oxycodone, 1 tab(s), Oral, q6hr for 3 day(s), 10 tab(s), Refill(s) 0, [facility]/pharmacy #[id number], 168, cm, 10/19/22 8:44:00 EDT, [...] nausea, # 10 tab(s), Refills(s) 0, [id number], cm, 10/19/22 8:44:00 EDT, Height/Length [...] QID, # 280 mL, Refills(s) 0, [id number], cm, 10/19/22 8:44:00 EDT, Height/Length Dosing, 85.6, kg, 10/19/22 8:44:00 EDT, Weight Dosing Automated Diff Basic Metabolic Panel CBC w/ Auto Diff eGFR Extra Blue Tube Extra SST Tube Hepatic Function Panel Lipase Level TSH With T4fr Reflex UA With Cult Reflex XR Chest 2 Views Future Appointments Appointment Date:11/20/2022 02:40:00 PM Scheduled Provider: Location:[facility] Appointment Type:FM Lab Draw Appointment Date:01/20/2023 10:00:00 AM Scheduled Provider[facility] Office Visit Future Scheduled Tests Laboratory* T3 Free 10/07/22 * Thyroid Stimulating Hormone 10/07/22 * Free T4 10/07/22 Radiology* US Renal 06/10/22 [facility]09-04-2023 Hospital Discharge instructions Follow Up Care 10/19/2022 08:31:02 With:Jon Rivera Address: [address] [place] [phone] Business (1) When:10/22/2022 13:40:06 With:Your GI physician Address:Unknown When:10/22/2022 13:40:01 With:Jaquan Morrow Address: [address] [place] [phone] Business (1) When:Within 3 Day(s) [facility]08-31-2023 Miscellaneous Notes* Telephone Encounter - Ria [...] and advise. Grecia Wallace documented in this encounterTrumbull [facility]08-21-2023 NoteHNO ID: [id number] Author: Pablo Lebron PSYD Service: ? Author Type: Psychologist Type: Progress Notes Filed: 10/05/2022 3:51 PM Note Text: Assessment was conducted over the phone due to pt's technical difficulties. Patient is a resident of [place], and completed the assessment over the phone in [place]. Psychologist is licensed and stationed in [place]. Informed consent was discussed and verbal assent [...] Focused Psychotherapy, Supportive Therapy PROGRESS TO DATE: Bee Tender Progress: Stable Short Term Condition: Stable GOALS/OBJECTIVES/INTERVENTIONS: To identify and implement tools for effectively managing symptoms of anxiety, stress, and low mood. Approximately 45 minutes were spent with the patient doing therapy. [facility] History of Present illness Narrative* Pablo Lebron, [facility] - 10/05/2022 3:07 PM EDT Assessment was conducted over the phone due to pt's technical difficulties. Patient is a resident of [place], and completed the assessment over the phone in [place]. Psychologist is licensed and stationed in [place]. Informed consent was discussed and verbal assent [...] Focused Psychotherapy, Supportive Therapy PROGRESS TO DATE: Skilled Nursing Progress: Stable Short Term Condition: Stable GOALS/OBJECTIVES/INTERVENTIONS: To identify and implement tools for effectively managing symptoms of anxiety, stress, and low mood. Approximately 45 minutes were spent with the patient doing therapy. Pablo Lebron PsyD documented in this encounterTrumbull [facility] Medical Center08-14-2023 Instructions* Patient Instructions* Xiomara Martinez, DADA - 09/28/2022 8:19 AM EDT 1. Protein: [...] Fusion multivitamin soft chews and calcium citrate 7776-4053 mg/day(3 soft chews), and continue Probiotic drink [...] should last 30 minutes. 7. Aim for 8022-0455 calories and 75-100 gm carbs per day Nutrition Monitoring & Evaluation: Maintain BMI < 30 Need for Follow up: 4 months, for conversion anniversary - [phone] documented in this encounterTrumbull [facility] Center08-14-2023 History of Present illness Narrative* Xiomara Martinez RD - 09/28/2022 8:00 AM EDT [facility] Nutrition Therapy: Virtual Consult - Re-assessment I have communicated my name and active licensure. The patient s identity and physical location wereverified at the time of this visit. Either the patient or their legal outside dealer sales representative has been informed of the [...] Fusion multivitamin soft chews and calcium citrate 1942-4379 mg/day(3 soft chews), and continue Probiotic drink [...] should last 30 minutes. 7. Aim for 8690-7723 calories and 75-100 gm carbs per day Nutrition Monitoring & Evaluation: Maintain BMI < 30 Need for Follow up: 4 months, for conversion anniversary - [phone] PROGRESS: Interval History: Patient presents for follow [...] the day. Recently started tracking intake on [employer] bre. Consistent, but likely insufficient protein intake. Following Phase 5 diet currently. 5674-1082 calories/day - meeting low-end needs 60-70 gm protein intake/day - falling below recommendations 60-90 oz fluid intake/day - meeting needs Taking all vitamin/minerals, however insufficient calcium citrate. Labs reviewed, unremarkable. Resting Metabolic Rate:1557 Energy needs for weight loss 3378-0709 (15-20 carina/kg current weight) Protein needs: 85 [...] Fusion One a Day multivitamin capsule PLUS 1280-2955 mg calcium citrate 5. Exercise: strive for [...] Garcia DATE: 09/28/2022 TIME: 7:48 AM PAGER: [phone] documented in this encounterTrumbull Regional Medical Center08-14-2023 NoteBar[facility]-2023 NoteBar[facility]08-07-2023 NoteHNO ID: [id number] Author: Pablo Lebron PSYD Service: ? Author Type: Psychologist Type: Progress Notes Filed: 09/22/2022 12:47 PM Note Text: Assessment was conducted over the phone due to pt's technical difficulties. Patient is a resident of [place], and completed the assessment over the phone in [place]. Psychologist is licensed and stationed in [place]. Informed consent was discussed and verbal assent [...] realized importance of working outside house; balance). 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 Animosity from and mom (not enough time at home). Hurt by mom's words wants to communicate, she internalizes. Marital therapy? Appreciative of family help with kids. Sources of support (brother and cntika-zq-xyr), close friend High anxiety and panic attacks [...] Focused Psychotherapy, Supportive Therapy PROGRESS TO DATE: Bee Tender Progress: Stable Short Term Condition: Stable GOALS/OBJECTIVES/INTERVENTIONS: To identify and implement tools for effectively managing symptoms of anxiety, stress, and low mood. Approximately 45 minutes were spent with the patient doing therapy. Pablo Lebron [facility]08-07-2023 History of Present illness Narrative* Pablo Lebron, [facility] - 09/21/2022 2:04 PM EDT Assessment was conducted over the phone due to pt's technical difficulties. Patient is a resident of [place], and completed the assessment over the phone in [place]. Psychologist is licensed and stationed in [place]. Informed consent was discussed and verbal assent [...] importance of working outside house; balance). 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 Animosity from and mom (not enough time at home). Hurt by mom's words wants to communicate, she internalizes. Marital therapy? Appreciative of family help with kids. Sources of support (brother and rkvtjg-pn-hbj), close friend High anxiety and panic attacks [...] Focused Psychotherapy, Supportive Therapy PROGRESS TO DATE: Skilled Nursing Progress: Stable Short Term Condition: Stable GOALS/OBJECTIVES/INTERVENTIONS: To identify and implement tools for effectively managing symptoms of anxiety, stress, and low mood. Approximately 45 minutes were spent with the patient doing therapy. Pablo Lebron PsyD documented in this encounterTrumbull [facility] Center08-04-2023 NoteBarney [facility]08-04-2023 History of Present illness Narrative* Breanna Stern, SLIM.BLASTING MACHINE OPERATOR - 09/18/2022 3:14 PM EDT BMI SURGERY [...] Total weight loss: 11.3 kg (25 lb) [place] weight: 70.3 kg (154 lb 14.5 oz) Excess weight: 24.5 kg (54 lb 1.5 oz) % of excess body weight lost: 11.3 kg (25 lb) (46.22% of excess weight loss) COMPLICATIONS SINCE LAST VISIT?: NONE EGD 06/23/22 Findings: The examined esophagus was normal. 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 The gastrojejunal anastomosis was characterized by healthy appearing mucosa. This was traversed. The ngwkw-iz-fhkfiey limb was characterized by healthy appearing mucosa. [...] 40 f bougie). This was traversed. The lnctl-zn-xhxzvna limb was characterized by healthy appearing mucosa. [...] Level: 4 - Moderate documented in this encounterTrumbull Regional Medical Center08-04-2023 Nurse Note* Jayla Meza MA - 09/18/2022 [...] Temperature: No Drains: No documented in this encounterTrumbull Regional Medical Center06-22-2023 Miscellaneous Notes* Telephone Encounter - Linda Hale [...] the dosing. Linda Davis documented in this encounterTrumbull Regional Medical Center06-14-2023 Hospital Discharge instructions Follow Up Care 07/29/2022 09:18:39 With:Nasim JOHNSON, YUMIKO Lamar, URO Address: [address], [facility] [place] [phone] When: Unknown [facility] 06-14-2023 Hospital Discharge instructions Patient [...] include: ?8 oz (237 mL) of milk, fmxndoh-xhnntzitjibf-brrff milk, and calcium- fortifiedfruit juice. Calcium-fortified means [...] ?Spinach (cooked), rhubarb, beets, sweet potatoes, and [place] Citizen chard. ?Peanuts. ?Potato chips, arabic fries, and baked potatoes with skin on. ?Nuts and nut products. ?Chocolate. If you regularly take a diuretic medicine, make sure to eat at least 1 or 2 servings of fruits or vegetables that are high in potassium each day. These include: ?Avocado. ?Banana. ?[place], prune, carrot, or tomato juice. ?Baked potato. [...] magnesium, fish oil, or vitamin B6. Take dzkg-mat-szlhgjr and prescription medicines only as told by [...] Casseroles. Pizza. Lasagna. Frozen meals. Potato chips. Grenadian fries. The items listed above may not [...] provider. Document Revised: 10/13/2021 Document Reviewed: 10/13/2021 [employer] Patient Education 2022 [employer]. Follow Up Care 06/30/2022 09:39:02 With:Nasim JOHNSON, Rajni Ballesteros, URL, URO Address: When: Unknown [facility] 06-13-2023 Instructions* Patient Instructions* Samara Evans MD [...] blistering or peeling skin. documented in this encounterTrumbull [facility] Medical Center06-13-2023 History of Present illness Narrative* Samara Evans [...] Past Histories independently gathered by the clinical support analyst, and the remaining scribed note accurately describes [...] visit. Samara Evans MD documented in this encounterTrumbull Regional Medical Center06-08-2023 Miscellaneous Notes* Telephone Encounter - Linda Hale [...] denying [employer] authorization Full letter scanned in [employer] for review Grecia Wallace * Telephone Encounter [...] Hale RN * Telephone Encounter - Grecia Velasquez [facility] - 07/23/2022 8:49 AM EDT Fax received from [facility] to notify [employer] not covered, will need PA or prescribe alternative: [place], Noreen or Veronique Fax scanned in [facility] Grecia Sandy Eva [facility] Electronically signed by Grecia Velasquez [facility] at 07/23/2022 8:52 AM EDT documented in this encounterTrumbull Regional Medical Center06-07-2023 History of Present illness Narrative* Donnie David [...] with cornea provider or optom- closer to [place] - Will sendmessage Return precautions were discussed in detail Plan reviewed with the patient who verbalizes understanding Donnie David MD Ophthalmology Resident documented in this encounterTrumbull Regional Medical Center06-07-2023 History of Present illness Narrative* Kasie Avalos [...] lesion. Mild degenerative changes. Lower thorax: Unremarkable. Agency Owner (topogram) images: No additional findings. CT ABD/PEL [...] Tissues: No acute abnormality. Lower thorax: Unremarkable. Agency Owner (topogram) images: No additional findings. US ABD [...] healthy appearing mucosa. This was traversed. The bizmw-cc-hurtcfg limb was characterized by healthy appearing mucosa. [...] 40 f bougie). This was traversed. The zhqqi-co-zuopvry limb was characterized by healthy appearing mucosa. [...] ceroid-laden histiocytes. There is no interface activity. [place] bile duct branches are identified in nearly [...] MD July 22, 2022 documented in this encounterTrumbull Regional Medical Center05-06-2023 History of Past illness Narrative* Problem Noted Date Resolved Date Intractable nausea and vomiting 06/20/2022 06/23/2022 Acute abdominal pain 12/21/2020 06/23/2022 Obesity 09/03/2020 11/29/2020 Abdominal pain 02/01/2020 04/08/2020 Moderate episode of recurrent major depressive d isorder 11/21/2019 01/03/2020 Obesity, Class II, BMI 35-39.9 10/13/2019 1 Last Assessment & Plan: Assessment: BMI 38.74 documented as of this encounter (statuses as of 07/22/2022) [facility]05-06-[facility] History of Past illness Narrative* Problem Noted Date Resolved Date Intractable nausea and vomiting 06/20/2022 06/23/2022 Acute abdominal pain 12/21/2020 06/23/2022 Obesity 09/03/2020 11/29/2020 Abdominal pain 02/01/2020 04/08/2020 Moderate episode of recurrent major depressive d isorder 11/21/2019 01/03/2020 Obesity, Class II, BMI 35-39.9 10/13/2019 1 Last Assessment & Plan: Assessment: BMI 38.74 documented as of this encounter (statuses as of 07/22/2022) [facility] History of Past illness Narrative* Problem Noted Date Resolved Date Intractable nausea and vomiting 06/20/2022 06/23/2022 Acute abdominal pain 12/21/2020 06/23/2022 Obesity 09/03/2020 11/29/2020 Abdominal pain 02/01/2020 04/08/2020 Moderate episode of recurrent major depressive d isorder 11/21/2019 01/03/2020 Obesity, Class II, BMI 35-39.9 10/13/2019 1 Last Assessment & Plan: Assessment: BMI 38.74 documented as of this encounter (statuses as of 07/23/2022) [facility] History of Past illness Narrative* Problem Noted Date Resolved Date Intractable nausea and vomiting 06/20/2022 06/23/2022 Acute abdominal pain 12/21/2020 06/23/2022 Obesity 09/03/2020 11/29/2020 Abdominal pain 02/01/2020 04/08/2020 Moderate episode of recurrent major depressive d isorder 11/21/2019 01/03/2020 Obesity, Class II, BMI 35-39.9 10/13/2019 1 Last Assessment & Plan: Assessment: BMI 38.74 documented as of this encounter (statuses as of 07/23/2022) [facility] of Past illness Narrative* Problem Noted Date Resolved Date Intractable nausea and vomiting 06/20/2022 06/23/2022 Acute abdominal pain 12/21/2020 06/23/2022 Obesity 09/03/2020 11/29/2020 Abdominal pain 02/01/2020 04/08/2020 Moderate episode of recurrent major depressive d isorder 11/21/2019 01/03/2020 Obesity, Class II, BMI 35-39.9 10/13/2019 1 Last Assessment & Plan: Assessment: BMI 38.74 documented as of this encounter (statuses as of 08/03/2022) [facility] of Past illness Narrative* Problem Noted Date Resolved Date Intractable nausea and vomiting 06/20/2022 06/23/2022 Acute abdominal pain 12/21/2020 06/23/2022 Obesity 09/03/2020 11/29/2020 Abdominal pain 02/01/2020 04/08/2020 Moderate episode of recurrent major depressive d isorder 11/21/2019 01/03/2020 Obesity, Class II, BMI 35-39.9 10/13/2019 1 Last Assessment & Plan: Assessment: BMI 38.74 documented as of this encounter (statuses as of 08/06/2022) [facility] of Past illness Narrative* Problem Noted Date Diagnosed Date Resolved Date Intractable nausea and vomiting 06/20/2022 06/23/2022 Acute abdominal pain 12/21/2020 023 Obesity 09/03/2020 11/29/2020 Abdominal pain 02/01/2020 04/08/2020 Moderate episode of recurren t major depressive disorder 11/21/2019 01/03/2020 Obesity, Class II, BMI 35-39.9 10/13/2019 11/29/2020 Last Assessment & Plan: Assessment: BMI 38.74 documented as of this encounter (statuses as of 09/19/2022) [facility] of Past illness Narrative* Problem Noted Date Diagnosed Date Resolved Date Intractable nausea and vomiting 06/20/2022 06/23/2022 Acute abdominal pain 12/21/2020 023 Obesity 09/03/2020 11/29/2020 Abdominal pain 02/01/2020 04/08/2020 Moderate episode of recurren t major depressive disorder 11/21/2019 01/03/2020 Obesity, Class II, BMI 35-39.9 10/13/2019 11/29/2020 Last Assessment & Plan: Assessment: BMI 38.74 documented as of this encounter (statuses as of 09/22/2022) [facility] of Past illness Narrative* Problem Noted Date Diagnosed Date Resolved Date Intractable nausea and vomiting 06/20/2022 06/23/2022 Acute abdominal pain 12/21/2020 023 Obesity 09/03/2020 11/29/2020 Abdominal pain 02/01/2020 04/08/2020 Moderate episode of recurren t major depressive disorder 11/21/2019 01/03/2020 Obesity, Class II, BMI 35-39.9 10/13/2019 11/29/2020 Last Assessment & Plan: Assessment: BMI 38.74 documented as of this encounter (statuses as of 09/28/2022) [facility] of Past illness Narrative* Problem Noted Date Diagnosed Date Resolved Date Intractable nausea and vomiting 06/20/2022 06/23/2022 Acute abdominal pain 12/21/2020 023 Obesity 09/03/2020 11/29/2020 Abdominal pain 02/01/2020 04/08/2020 Moderate episode of recurren t major depressive disorder 11/21/2019 01/03/2020 Obesity, Class II, BMI 35-39.9 10/13/2019 11/29/2020 Last Assessment & Plan: Assessment: BMI 38.74 documented as of this encounter (statuses as of 10/06/2022) [facility] of Past illness Narrative* Problem Noted Date Diagnosed Date Resolved Date Intractable nausea and vomiting 06/20/2022 06/23/2022 Acute abdominal pain 12/21/2020 023 Obesity 09/03/2020 11/29/2020 Abdominal pain 02/01/2020 04/08/2020 Moderate episode of recurren t major depressive disorder 11/21/2019 01/03/2020 Obesity, Class II, BMI 35-39.9 10/13/2019 11/29/2020 Last Assessment & Plan: Assessment: BMI 38.74 documented as of this encounter (statuses as of 10/15/2022) [facility] of Past illness Narrative* Problem Noted Date Diagnosed Date Resolved Date Intractable nausea and vomiting 06/20/2022 06/23/2022 Acute abdominal pain 12/21/2020 023 Obesity 09/03/2020 11/29/2020 Abdominal pain 02/01/2020 04/08/2020 Moderate episode of recurren t major depressive disorder 11/21/2019 01/03/2020 Obesity, Class II, BMI 35-39.9 10/13/2019 11/29/2020 Last Assessment & Plan: Assessment: BMI 38.74 documented as of this encounter (statuses as of 10/21/2022) [facility] of Past illness Narrative* Problem Noted Date Diagnosed Date Resolved Date Intractable nausea and vomiting 06/20/2022 06/23/2022 Acute abdominal pain 12/21/2020 023 Obesity 09/03/2020 11/29/2020 Abdominal pain 02/01/2020 04/08/2020 Moderate episode of recurren t major depressive disorder 11/21/2019 01/03/2020 Obesity, Class II, BMI 35-39.9 10/13/2019 11/29/2020 Last Assessment & Plan: Assessment: BMI 38.74 documented as of this encounter (statuses as of 12/21/2022) [facility] History of Present illness Narrative* Aliyah Washburn [...] advised she may send a message on Clip if she has any additional questions. Aliyah Washburn PA-C Orthopaedic & Rheumatologic [facility] Date: June 18, 2022 Time: [...] No Swollen Glands: No documented in this encounterTrumbull Regional Medical Center04-28-2023 History of Present illness Narrative* Aliyah Washburn PA-C - 06/12/2022 10:26 AM EDT Images from the original note were not included. Rheumatology Outpatient Clinic Date of Service: 06/12/2022 Patient: Abbey Garcia Medical Record: [id number] Primary Care Physician: Wally Foley MD Last Rheumatology visit: None at [facility] Referring Provider: HENNY Marcus [address] [facility] [address] [place] [address] Consultation requested by Agustin Valentino for an [...] hypothyroidism. Reports she has not seen her plant packer recently. 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 She has not seen plant packer. Would like to rule out endocrine causes [...] which included preparing to see the patient, ludq-kw-nlnw patient care, completing clinical documentation, obtaining and/or reviewing separately obtained history, performing a medically appropriate examination, counseling and educating the pat ient/family/caregiver, and ordering medications, tests, or procedures. Aliyah Washburn PA-C Orthopaedic & Rheumatologic [facility] Date: June 12, 2022 Time: 10:26 AM documented in this encounterTrumbull [facility] Center04-26-2023 Hospital Discharge instructions Patient Education 06/10/2022 17:05:57 [...] you until you feel stable. Medicines Take rhmd-ptp-wkkjiai and prescription medicines only as told by [...] provider. Document Revised: 06/12/2021 Document Reviewed: 06/12/2021 [employer] Patient Education 2022 [employer]. 06/10/2022 17:05:57 Nonspecific Chest Pain, Adult Nonspecific [...] Follow these instructions at home: Medicines Take gwwt-wwp-zyptffs and prescription medicines only as told by [...] provider. Document Revised: 04/17/2021 Document Reviewed: 04/17/2021 [employer] Patient Education 2022 [employer]. Follow Up Care 06/10/2022 12:31:10 With:Chetna Jack Address: [address] [place] [phone] Business (1) When:06/13/2022 17:03:30 Comments:Schedule event loop recorder as well as echocardiogram with central scheduling and then follow-up with mobile solutions architect Dr. Jack With:Jaquan Morrow Address: [address] [place] [phone]- Business (1) When:06/13/2022 17:03:46 Comments:Call the office [...] you develop any new or worsening symptoms. [facility]01-20-2023 Nurse Note* Eli Carter RN - [...] None REFERRAL (RECOMMENDATION): None documented in this encounterTrumbull [facility] Center01-19-2023 Miscellaneous Notes* Telephone Encounter - Victor M Dennis - 03/05/2022 11:54 AM EST Spoke with the patient confirmed 1:45 arrival time for 2:45 appointment at [facility]. Victor M Dennis * Telephone Encounter - Li Kimball RN - 03/05/2022 10:31 AM EST I called patient and left a message with EGD appointment instructions and location. Call back number provided. Li Kimball RN documented in this encounterTrumbull Regional Medical Center01-19-2023 Instructions* Patient Instructions* Breanna Stern APRN.BETH - 03/05/2022 10:18 AM EST I have asked scheduling to add you on for an appointment in 2 months for your regular follow up, we'll check your labs at that time. (I've ordered them, no need to fast) We may need to see you sooner based on results of your EGD documented in this encounterTrumbull Regional Medical Center01-19-2023 History of Present illness Narrative* Breanna Stern [...] Total weight loss: 19.1 kg (42 lb) [place] weight: 70.3 kg (154 lb 14.5 oz) [...] Orders Breanna Stern APRN.BETH documented in this encounterTrumbull Regional Medical Center12-30-2022 History of Present illness Narrative* Kuldip Yousif [...] lateral patellar facet. Bilateral PF crepitance IMPRESSION: (J27.789G) Acetabular labrum tear, right, subsequent encounter (primary encounter diagnosis) PLAN: 1. Medication: None. 2. Test(s)/Imaging/Referral(s): None. 3. Intervention: Continue conservative treatment. Objectively, patients hip is doing well post op. She has been dealing with a right knee injury as well (images were uploaded in the system today). She saw a provider in the [place] area who recommended her have an osteotomy. 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 We discussed the option of seeing Dr. Gutierres for a second opinion as patient is eager to see someone through the [facility] system. We will help her set up [...] Past Histories independently gathered by the clinical support analyst and the remaining scribed note accurately describes my personal service to the patient. Kuldip Yousif MD documented in this encounterTrumbull Regional Medical Center12-22-2022 Miscellaneous Notes* Telephone Encounter - Li Kimball [...] nausea. Li Kimball RN documented in this encounterTrumbull Regional Medical Center12-21-2022 History of Present illness Narrative* Nahed Tamez RD - 02/04/2022 9:24 AM EST [facility] Nutrition Therapy: Virtual Consult - Re-assessment This [...] Fusion One a Day multivitamin capsule PLUS 8796-8050 mg calcium citrate daily) 4. Protein goal: 75-93 grams protein/day. 5. Fluid goal: 64oz per day water. (no calories, no caffeine, no carbonation, no alcohol) 6. Call the BMI department at [phone] to schedule your one month post op nutrition visit for February. Link to book as discussed: https://my.[facility].org/-/scassets/files/org/bariatric/guides/bmiguideboo k-[email or web address].ashx?la=en Nutrition Monitoring & Evaluation: Adherence to [...] Fusion One a Day multivitamin capsule PLUS 7938-3922 mg calcium citrate 5. Exercise: strive for [...] Garcia DATE: 02/04/2022 TIME: 9:24 AM PAGER: [phone] documented in this encounterTrumbull Regional Medical Center12-20-2022 Instructions* Patient Instructions* Breanna Stern APRN.CNP - [...] your activity as tolerated. documented in this encounterTrumbull Regional Medical Center12-20-2022 History of Present illness Narrative* Breanna Stern [...] Total weight loss: 15.4 kg (34 lb) [place] weight: 70.3 kg (154 lb 14.5 oz) [...] 1 month post op visit. Breanna Stern APRN.BLASTING MACHINE OPERATOR documented in this encounterTrumbull Regional Medical Center12-20-2022 Nurse Note* Lucia Ramirez MA - 02/03/2022 2:53 PM EST What is the reason for your visit today? Follow up Who is your referring physician? Are you having poor oral intake? A little Have you had unintentional weight loss of 15 lbs/7 Kg in the last 3-6 months? NO Bowels: regular Wound: Temperature: No Drains: No documented in this encounterTrumbull Regional Medical Center12-20-2022 Miscellaneous Notes* Telephone Encounter - Li Kimball [...] 02/03/2022. Li Kimball RN documented in this encounterTrumbull Regional Medical Center12-19-2022 Miscellaneous Notes* Telephone Encounter - Li Kimball RN - 02/02/2022 2:39 PM EST See 02/02/2022 MyChart encounter Li Kimball RN * Telephone Encounter - Olga Paul - 02/02/2022 8:46 AM EST Patient called in and will like a refill on pain medication. Patients pharmacy is the [facility] in [place]. Contact# [phone] documented in this encounterTrumbull Regional Medical Center12-14-2022 History and physical note * Ioana Hogan [...] fevers. Neuro: No history of TIA's, stroke, SHEET ROCK LAYER tumor, impaired sensorium, hemiplegia, paraplegia or quadraplegia. [...] 2022 TIME: 11:05 AM documented in this encounterTrumbull Regional Medical Center12-08-2022 Instructions* Patient Instructions* Ioana Hogan PA-C - 01/22/2022 11:55 AM EST PATIENT PREOPERATIVE INSTRUCTIONS Deacon Kat MD has scheduled you for your procedure at this surgery center: [facility]: [phone] --[id number] [address]. Please check in on the1st floor at [...] Procedures: - YOU MUST HAVE A RESPONSIBLE WATER SUPERINTENDENT TAKE YOU HOME. A ADVERTISING EXECUTIVE OR SPA COORDINATOR CANNOT BE MADE A RESPONSIBLE WATER SUPERINTENDENT. - We recommend that a responsible person stays with you overnight to take care of you. - You cannot stay in a hotel alone after outpatient surgery. You will not be permitted to have yoursurgery, if you do not have someone to take care of you. If you already have an Advance Directive, please fax a copy to [phone] or email to for it to be [...] day. Ioana Hogan PA-C documented in this encounterTrumbull Regional Medical Center12-06-2022 Miscellaneous Notes* Telephone Encounter - Li Kimball [...] provided. Li Kimball RN documented in this encounterTrumbull Regional Medical Center11-22-2022 Miscellaneous Notes* Telephone Encounter - Li Kimball [...] questions. Li Kimball RN documented in this [facility]11-18-2022 Instructions* Patient Instructions* Sabina Joy APRN.BETH - 01/02/2022 11:29 AM EST Images from the original note were not included. Mutually Agreed Upon Goals Eating Plan: Commissioner Pal BRE - Log intake 2 days [...] BRE for meditation - Mindful Moments by [facility] Trans[employer]. Nucla. Adimab Timer https://www.Tap 'n Tap/Mi-Pay/mental-health/ubu-xlhondqqkz-crnmyi-android-ap ps#our-picks How can I fix my acid [...] but are usually stronger and faster than E6picwnske. Dietary habits for acid reflux Reduce or [...] Try Breakfast: 1 scrambled egg (75 calories) Sudanese muffin (67 calories) Calories per meal: 142 AM Snack & Fluids: *Spread out and sipped between meals 2 cups water (0 calories) 1 cup skim milk or unsweetened soy milk (90 calories) Calories per meal: 90 Lunch: 4 oz canned tuna in water (100 calories) 2 Tbsp fat free ortiz (20 calories) 1 slice low fat [place] Citizen cheese (50 calories) 1 slice whole grain [...] after gastric sleeve surgery? (Full meal plan) ([employer]an[employer]) .kml documented in this encounterTrumbull Regional Medical Center11-18-2022 History of Present illness Narrative* Sabina Joy [...] weight loss: 35 lbs or 14.58 % [place] weight: 70.3 kg (154 lb 14.5 oz) [...] which included preparing to see the patient, xgnl-et-hnih patient care, completing clinical documentation, obtaining and/or reviewing separately obtained history, performing a medically appropriate examination, counseling and educating the pat ient/family/caregiver, independently interpreting results (not separately reported), and communicating results to the patient/family/caregiver. Follow up in 6 months. This visit was performed virtually due to the COVID-19 epidemic as an effort to protect patients and minimize exposure. documented in this encounterTrumbull Regional Medical Center11-17-2022 History of Present illness Narrative* Marisabel Lynn LPN - 01/01/2022 2:41 PM EST 2Name: Abbey Garcia CC#: [id number] Date: 01/01/2022 HUERTA 48 HR PH FOLLOW-UP The HUERTA monitor was received today via [employer] transport.. Test data from the monorail crane operator was downloaded. Events from the patient diary were inserted into the study for physician review. .Marisabel Lynn LPN documented in this encounterTrumbull Regional Medical Center11-10-2022 History of Present illness Narrative* Marisabel Lynn LPN - 12/25/2021 11:28 AM EST Name: Abbey Garcia CCF#: [id number] Date: 12/25/2021 48hr HUERTA PH CAPSULE PLACEMENT [...] hours. .Marisabel Lynn LPN documented in this encounterTrumbull Regional Medical Center11-10-2022 Nurse Note* Raegan Sood RN - 12/25/2021 [...] RN In Department: GASTROENTEROLOGY documented in this encounterTrumbull Regional Medical Center11-10-2022 History of Present illness Narrative* Mateusz Kraft [...] Mateusz Kraft Research Coordinator documented in this encounterTrumbull Regional Medical Center10-05-2022 Miscellaneous Notes* Telephone Encounter - Li Kimball RN - 11/19/2021 10:57 AM EDT I called the patient and left a message for the patient to call [phone], option 0 to schedule the pH Impedence testing. Call back number provided for additional questions or concerns. Li Kimball RN documented in this encounterTrumbull Regional Medical Center10-03-2022 History of Present illness Narrative* Deacon Kat [...] mcg, Iron 45-60 mg and calcium citrate 3692-6268 mg/day PHYSICAL EXAMINATION General appearance: Well appearing, [...] the date of the service which included ljcj-hm-gmwc patient care, completing clinical documentation, obtaining and/or reviewing separately obtained history, counseling and educating the patient/family/caregiver, and ordering medications, tests, or procedures. Deacon Kat MD documented in this encounterTrumbull Regional Medical Center10-03-2022 Miscellaneous Notes* Telephone Encounter - Grecia Wallace - 11/17/2021 11:21 AM EDT Pharmacy fax requesting refills as follows: Patient scheduled for follow up visit Dec 24 Requested Prescriptions Pending Prescriptions Disp Refills famotidine (PEPCID) 40 mg tablet 90 tablet 1 Sig: Take 1 tablet by mouth once daily. Please review and advise. Grecia Wallace documented in this encounterTrumbull Regional Medical Center09-06-2022 Miscellaneous Notes* Telephone Encounter - Cornel Conrad [...] book slots. Cornel Conrad documented in this encounterTrumbull Regional Medical Center09-06-2022 Miscellaneous Notes* Telephone Encounter - Slime Crews - 10/21/2021 8:25 AM EDT Called patient to reschedule 10/[address] Yousif will be out of the office in the afternoon that day. Per Dr. Yousif, patient can be rescheduled at [facility] on 10/21 between 4:15-5:30 PM or on 10/22 in [place] between 4-6 PM. Do not double book slots. documented in this encounterTrumbull Regional Medical Center08-25-2022 Instructions* Patient Instructions* Sabina Joy APRN.BETH - 10/09/2021 3:56 PM EDT Images from the original note were not included. Mutually Agreed Upon Goals Eating Plan: Commissioner Pal BRE - Log intake 7 days per week. Replace skipped meals with a protein supplement. Bariatric Plate Method Activity: Walking as tolerated. Chair exercises Sleep: No electronic for 30 minutes prior to sleep 2 nights per week. Practice Sleep Hygiene. CPAP nightly Stress: BRE for meditation - Mindful Moments by [facility] Wellness. Alan. Insight Timer https://www.FrogApps.[employer]/health/mental-health/ouy-tzaiianfzg-cvzfbr-android-ap ps#our-picks Steps to Follow Bariatric Plate Total [...] own fruit infused price >> lemon or nikolski with oranges, blackberries, strawberries and fresh mint, [...] with food. Calcium Citrate with Vitamin D 3228-8887 mg calcium - DO NOT TAKE WITH IRON OR MULTIVITAMIN Vitamin D3 - take 3,000 international unit(s) per day from all sources documented in this encounterTrumbull Regional Medical Center08-25-2022 History of Present illness Narrative* Sabina Joy APRN.CNP - 10/09/2021 3:30 PM EDT BMI OM PostOp Clinic Note October 09, 2021 Virtual Visit (Audio/Visual) I have discussed the nature of this visit with the patient which will occur via [employer] (Phone, Virtual Visit) and she agrees to [...] 32.28 kg/(m^2) Total weight loss: 42 lbs [place] weight: 70.3 kg (154 lb 14.5 oz) [...] which included preparing to see the patient, ygkl-en-jcfs patient care, completing clinical documentation, obtaining and/or reviewing separately obtained history, performing a medically appropriate examination, counseling and educating the pat ient/family/caregiver, ordering medications, tests, or procedures, independently interpreting results (not separately reported), and communicating results to the patient/family/caregiver. Medical Decision Making: Level: 1 - N/A Sabina Joy APRN.BETH documented in this encounterTrumbull Regional Medical Center07-16-2022 Hospital Discharge instructions* Discharge Instructions* Pablo Atwood DO - 08/30/2021 4:11 AM EDT Please take all medications as prescribed and follow-up with your oral surgeon on Wednesday as scheduled. * Attachments The following attachments cannot be sent through Care Everywhere. * Tooth: Abscessed (Sudanese) documented in this encounterBON Voz.io Phone: [phone]) 239-405907-15-2022 Miscellaneous Notes* Telephone Encounter - Justine Shabazz PA-C - 08/29/2021 2:55 PM EDT Pharmacy generated request, refill not appropriate. Justine Shabazz PA-C documented in this encounterTrumbull Regional Medical Center07-15-2022 Instructions* Patient Instructions* Justine Shabazz PA-C - [...] and carry free weights documented in this encounterTrumbull Regional Medical Center07-15-2022 History of Present illness Narrative* Justine Shabazz PA-C - 08/29/2021 2:16 PM EDT POST OP DISTANCE HEALTH VIRTUAL VISIT DOCUMENTATION NOTE This virtual visit was performed via video enabled technology, and the patient provided consent to be evaluated and managed using this virtual visit and video enabled technology. [facility] Platform: Bunchball Zoom Virtual Visit People present : Justine [...] Nica Shabazz, MS, PA-C documented in this encounterTrumbull Regional Medical Center07-14-2022 Instructions* Patient Instructions* Xiomara Martinez RD - [...] Fusion One a Day multivitamin capsule PLUS 5347-9356 mg calcium citrate 5. Exercise: strive for [...] or sooner if needed documented in this encounterTrumbull Regional Medical Center07-14-2022 History of Present illness Narrative* Xiomara Martinez RD - 08/28/2021 7:54 AM EDT [facility] Nutrition Therapy: Virtual Consult Re-assessment This visit [...] Fluids: water (64 oz), gatorade zero, Body Channing light Exercise: limited to PT due to [...] Rate: 1635 Energy needs for weight loss 6964-3717 (15-20 carina/kg current weight) Protein needs: 75-93 [...] Fusion One a Day multivitamin capsule PLUS 2547-9468 mg calcium citrate 5. Exercise: strive for [...] by: Xiomara Martinez RD documented in this encounterTrumbull Regional Medical Center07-08-2022 Evaluation note* Encounter Date Diagnosis Assessment Notes Treatment Notes Treatment Clinical Notes Aug, PTSD (post-traumatic stress disorder) (ICD-10 - F43.10) [email or web address] Other 07-08-2022 Miscellaneous Notes* Telephone Encounter - Grecia Wallace - 08/22/2021 10:40 AM EDT Pharmacy fax requesting refills as follows: patient has a follow up visit 09/24/21 Pending Prescriptions Disp Refills OMEPRAZOLE 40 MG CAPSULE,DELAYED RELEASE 60 capsule 0 Sig: Take 1 capsule by mouth twice daily. ELIJAH: No Please review and advise. Grecia Wallace documented in this encounterTrumbull Regional Medical Center07-03-2022 Evaluation note* Encounter Date Diagnosis Assessment Notes [...] system will be more sensitive than normal. [email or web address] Other 06-30-2022 Miscellaneous Notes* Telephone Encounter - Justine Shabazz PA-C - 08/14/2021 2:51 PM EDT Pharmacy generated request, refill not appropriate. Justine Shabazz PA-C documented in this encounterTrumbull Regional Medical Center06-17-2022 Instructions* Patient Instructions* Justine Shabazz PA-C - [...] leg backward) and letting your feet turning sander tender when standing or laying flat- until 3 [...] others. Follow-up: 4 weeks documented in this encounterTrumbull Regional Medical Center06-17-2022 History of Present illness Narrative* Justine Shabazz PA-C - 08/01/2021 10:55 AM EDT POST OP DISTANCE HEALTH VIRTUAL VISIT DOCUMENTATION NOTE This virtual visit was performed via video enabled technology, and the patient provided consent to be evaluated and managed using this virtual visit and video enabled technology. [facility] Platform: WISE s.r.l Virtual Visit People present : Justine Shabazz PA-C and Patient Time Spent for video encounter, record review and documentation: 15 minutes CHIEF COMPLAINT (CC): Post op right hip HISTORY OF PRESENT ILLNESS (HPI): 3 weeks s/p 1. right hip arthroscopy. 2. Acetabuloplasty CPT 77763 3. Labral repair. CPT 43487 4. Femoroplasty. CPT 79132 5. Capsular Closure DOS: 08/10/21 Denies systemic [...] will review MRI right knee (uploaded in [employer]). She has been referredto physician in [place] and was recommended to have osteotomy, she [...] leg backward) and letting your feet turning sander tender when standing or laying flat- until 3 [...] Justine Shabazz MS, PA-C documented in this encounterTrumbull Regional Medical Center05-20-2022 History of Present illness Narrative* Justine Shabazz PA-C - 07/04/2021 10:59 AM EDT AMBULATORY TELEPHONE VISIT [place] M Jose has consented to this telephone encounter. Persons Present: patient Chief Complaint/Reason: Pre op right hip HPI: 31 y/o female scheduled for right hip arthrosc[place] with [place] [facility] 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 - down 50 lb Anticoagulation medications: no Pharmacy/ scripts: [facility] - advised will be sent 07/09/21 day [...] with Dr Yousif Post op RXs to [facility] 07/09/21 PT 07/11/21 Post op follow up 07/30/21 - ideally virtual Total Time Spent: 8 minutes Justine Shabazz PA-C documented in this encounterTrumbull Regional Medical Center05-09-2022 History of Present illness Narrative* Justine Shabazz [...] must be done in radiology at the [facility] to ensure correct views.) Brace fitting: Yes - ( hip brace fit with DJO Rep at [facility]) Pre op PT visit required for [...] up) No. Pre op instructions sent via Clip. Jace Duarte, AT documented in this encounterTrumbull Regional Medical Center05-04-2022 History of Present illness Narrative* Kuldip Yousif MD - 06/18/2021 11:00 AM EDT x * Kuldip Yousif MD - 06/18/2021 10:23 AM EDT Images from the original note were not included. DEPARTMENT OF ORTHOPAEDICS Consultation as a request of Shanna June, ZEYAD [address] [facility] [address] Chief Complaint: Right hip pain HISTORY OF [...] Bilateral arthroscopic knee surgery- was catcher in [facility] PICC LINE INSERT/CONSULT 12/24/2020 VAGINAL DELIVERY [...] No history of dysuria, frequency or incontinence LIBRARIAN HELPER: Negative for abnormal vaginal bleeding, abnormal vaginal [...] Past Histories independently gathered by the clinical support analyst and the remaining scribed note accurately describes my personal service to the patient. Kuldip Yousif MD documented in this encounterTrumbull Regional Medical Center04-18-2022 History of Present illness Narrative* Lucie Mora [...] to that time. documented in this encounterOS[facility] note * Encounter Date [...] intake. Mar, Other Asthma material was printed [email or web address] Other 12-14-2021 Evaluation note* Encounter Date Diagnosis [...] to be seen. Also always know the [facility] Emergency Number is 24 hours a day available, even on holidays there is someone you can reach out to. Also we will check other labs yearly to screen for other health issues. Please remember we are a team and your opinion is very important in all of your healthcare decisions Jan, PTSD (post-traumatic stress disorder) (ICD-10 - F43.10) 14 Jan, 2021 Hernia (ICD-10 - K46.9) Referral placed with surgeon after discussing options and treatment locations. [email or web address] Other [id number] History of Past illness Narrative* Problem Noted Date Resolved Date Obesity 09/03/2020 11/29/2020 Abdominal pain 02/01/2020 04/08/2020 Moderate episode of recurrent major depressive d isorder 11/21/2019 01/03/2020 Obesity, Class II, BMI 35-39.9 10/13/2019 1 Last Assessment & Plan: Assessment: BMI 38.74 documented as of this encounter (statuses as of 06/18/2021) [facility]07[facility] History of Past illness Narrative* Problem Noted Date Resolved Date Obesity 09/03/2020 11/29/2020 Abdominal pain 02/01/2020 04/08/2020 Moderate episode of recurrent major depressive d isorder 11/21/2019 01/03/2020 Obesity, Class II, BMI 35-39.9 10/13/2019 1 Last Assessment & Plan: Assessment: BMI 38.74 documented as of this encounter (statuses as of 06/23/2021) [facility]07-[facility] History of Past illness Narrative* Problem Noted Date Resolved Date Obesity 09/03/2020 11/29/2020 Abdominal pain 02/01/2020 04/08/2020 Moderate episode of recurrent major depressive d isorder 11/21/2019 01/03/2020 Obesity, Class II, BMI 35-39.9 10/13/2019 1 Last Assessment & Plan: Assessment: BMI 38.74 documented as of this encounter (statuses as of 07/09/2021) [facility] [facility] History of Past illness Narrative* Problem Noted Date Resolved Date Obesity 09/03/2020 11/29/2020 Abdominal pain 02/01/2020 04/08/2020 Moderate episode of recurrent major depressive d isorder 11/21/2019 01/03/2020 Obesity, Class II, BMI 35-39.9 10/13/2019 1 Last Assessment & Plan: Assessment: BMI 38.74 documented as of this encounter (statuses as of 07/15/2021) [facility]07-20-2021 History of Past illness Narrative* Problem Noted Date Resolved Date Obesity 09/03/2020 11/29/2020 Abdominal pain 02/01/2020 04/08/2020 Moderate episode of recurrent major depressive d isorder 11/21/2019 01/03/2020 Obesity, Class II, BMI 35-39.9 10/13/2019 1 Last Assessment & Plan: Assessment: BMI 38.74 documented as of this encounter (statuses as of 07/28/2021) [address]20-2021 History of Past illness Narrative* Problem Noted Date Resolved Date Obesity 09/03/2020 11/29/2020 Abdominal pain 02/01/2020 04/08/2020 Moderate episode of recurrent major depressive d isorder 11/21/2019 01/03/2020 Obesity, Class II, BMI 35-39.9 10/13/2019 1 Last Assessment & Plan: Assessment: BMI 38.74 documented as of this encounter (statuses as of 08/01/2021) [facility]07-20-2021 History of Past illness Narrative* Problem Noted Date Resolved Date Obesity 09/03/2020 11/29/2020 Abdominal pain 02/01/2020 04/08/2020 Moderate episode of recurrent major depressive d isorder 11/21/2019 01/03/2020 Obesity, Class II, BMI 35-39.9 10/13/2019 1 Last Assessment & Plan: Assessment: BMI 38.74 documented as of this encounter (statuses as of 08/14/2021) [address]20-2021 History of Past illness Narrative* Problem Noted Date Resolved Date Obesity 09/03/2020 11/29/2020 Abdominal pain 02/01/2020 04/08/2020 Moderate episode of recurrent major depressive d isorder 11/21/2019 01/03/2020 Obesity, Class II, BMI 35-39.9 10/13/2019 1 Last Assessment & Plan: Assessment: BMI 38.74 documented as of this encounter (statuses as of 08/22/2021) [facility]07-20-2021 History of Past illness Narrative* Problem Noted Date Resolved Date Obesity 09/03/2020 11/29/2020 Abdominal pain 02/01/2020 04/08/2020 Moderate episode of recurrent major depressive d isorder 11/21/2019 01/03/2020 Obesity, Class II, BMI 35-39.9 10/13/2019 1 Last Assessment & Plan: Assessment: BMI 38.74 documented as of this encounter (statuses as of 08/28/2021) [address]20-2021 History of Past illness Narrative* Problem Noted Date Resolved Date Obesity 09/03/2020 11/29/2020 Abdominal pain 02/01/2020 04/08/2020 Moderate episode of recurrent major depressive d isorder 11/21/2019 01/03/2020 Obesity, Class II, BMI 35-39.9 10/13/2019 1 Last Assessment & Plan: Assessment: BMI 38.74 documented as of this encounter (statuses as of 08/29/2021) [facility]07-20-2021 History of Past illness Narrative* Problem Noted Date Resolved Date Obesity 09/03/2020 11/29/2020 Abdominal pain 02/01/2020 04/08/2020 Moderate episode of recurrent major depressive d isorder 11/21/2019 01/03/2020 Obesity, Class II, BMI 35-39.9 10/13/2019 1 Last Assessment & Plan: Assessment: BMI 38.74 documented as of this encounter (statuses as of 08/29/2021) [address]20-2021 History of Past illness Narrative* Problem Noted Date Resolved Date Obesity 09/03/2020 11/29/2020 Abdominal pain 02/01/2020 04/08/2020 Moderate episode of recurrent major depressive d isorder 11/21/2019 01/03/2020 Obesity, Class II, BMI 35-39.9 10/13/2019 1 Last Assessment & Plan: Assessment: BMI 38.74 documented as of this encounter (statuses as of 09/02/2021) [facility]07-20-2021 History of Past illness Narrative* Problem Noted Date Resolved Date Obesity 09/03/2020 11/29/2020 Abdominal pain 02/01/2020 04/08/2020 Moderate episode of recurrent major depressive d isorder 11/21/2019 01/03/2020 Obesity, Class II, BMI 35-39.9 10/13/2019 1 Last Assessment & Plan: Assessment: BMI 38.74 documented as of this encounter (statuses as of 10/09/2021) [facility]07-20-2021 History of Past illness Narrative* Problem Noted Date Resolved Date Obesity 09/03/2020 11/29/2020 Abdominal pain 02/01/2020 04/08/2020 Moderate episode of recurrent major depressive d isorder 11/21/2019 01/03/2020 Obesity, Class II, BMI 35-39.9 10/13/2019 1 Last Assessment & Plan: Assessment: BMI 38.74 documented as of this encounter (statuses as of 10/09/2021) [facility]07-20-2021 History of Past illness Narrative* Problem Noted Date Resolved Date Obesity 09/03/2020 11/29/2020 Abdominal pain 02/01/2020 04/08/2020 Moderate episode of recurrent major depressive d isorder 11/21/2019 01/03/2020 Obesity, Class II, BMI 35-39.9 10/13/2019 1 Last Assessment & Plan: Assessment: BMI 38.74 documented as of this encounter (statuses as of 10/21/2021) [facility]07-20-2021 History of Past illness Narrative* Problem Noted Date Resolved Date Obesity 09/03/2020 11/29/2020 Abdominal pain 02/01/2020 04/08/2020 Moderate episode of recurrent major depressive d isorder 11/21/2019 01/03/2020 Obesity, Class II, BMI 35-39.9 10/13/2019 1 Last Assessment & Plan: Assessment: BMI 38.74 documented as of this encounter (statuses as of 11/18/2021) [facility]07-20-2021 History of Past illness Narrative* Problem Noted Date Resolved Date Obesity 09/03/2020 11/29/2020 Abdominal pain 02/01/2020 04/08/2020 Moderate episode of recurrent major depressive d isorder 11/21/2019 01/03/2020 Obesity, Class II, BMI 35-39.9 10/13/2019 1 Last Assessment & Plan: Assessment: BMI 38.74 documented as of this encounter (statuses as of 11/18/2021) [address]20-2021 History of Past illness Narrative* Problem Noted Date Resolved Date Obesity 09/03/2020 11/29/2020 Abdominal pain 02/01/2020 04/08/2020 Moderate episode of recurrent major depressive d isorder 11/21/2019 01/03/2020 Obesity, Class II, BMI 35-39.9 10/13/2019 1 Last Assessment & Plan: Assessment: BMI 38.74 documented as of this encounter (statuses as of 11/19/2021) [facility]07-20-2021 History of Past illness Narrative* Problem Noted Date Resolved Date Obesity 09/03/2020 11/29/2020 Abdominal pain 02/01/2020 04/08/2020 Moderate episode of recurrent major depressive d isorder 11/21/2019 01/03/2020 Obesity, Class II, BMI 35-39.9 10/13/2019 1 Last Assessment & Plan: Assessment: BMI 38.74 documented as of this encounter (statuses as of 11/19/2021) [address]20-2021 History of Past illness Narrative* Problem Noted Date Resolved Date Obesity 09/03/2020 11/29/2020 Abdominal pain 02/01/2020 04/08/2020 Moderate episode of recurrent major depressive d isorder 11/21/2019 01/03/2020 Obesity, Class II, BMI 35-39.9 10/13/2019 1 Last Assessment & Plan: Assessment: BMI 38.74 documented as of this encounter (statuses as of 12/17/2021) [address]20-2021 History of Past illness Narrative* Problem Noted Date Resolved Date Obesity 09/03/2020 11/29/2020 Abdominal pain 02/01/2020 04/08/2020 Moderate episode of recurrent major depressive d isorder 11/21/2019 01/03/2020 Obesity, Class II, BMI 35-39.9 10/13/2019 1 Last Assessment & Plan: Assessment: BMI 38.74 documented as of this encounter (statuses as of 12/25/2021) [address]20-2021 History of Past illness Narrative* Problem Noted Date Resolved Date Obesity 09/03/2020 11/29/2020 Abdominal pain 02/01/2020 04/08/2020 Moderate episode of recurrent major depressive d isorder 11/21/2019 01/03/2020 Obesity, Class II, BMI 35-39.9 10/13/2019 1 Last Assessment & Plan: Assessment: BMI 38.74 documented as of this encounter (statuses as of 12/25/2021) [address]20-2021 History of Past illness Narrative* Problem Noted Date Resolved Date Obesity 09/03/2020 11/29/2020 Abdominal pain 02/01/2020 04/08/2020 Moderate episode of recurrent major depressive d isorder 11/21/2019 01/03/2020 Obesity, Class II, BMI 35-39.9 10/13/2019 1 Last Assessment & Plan: Assessment: BMI 38.74 documented as of this encounter (statuses as of 12/25/2021) [facility]07-20-2021 History of Past illness Narrative* Problem Noted Date Resolved Date Obesity 09/03/2020 11/29/2020 Abdominal pain 02/01/2020 04/08/2020 Moderate episode of recurrent major depressive d isorder 11/21/2019 01/03/2020 Obesity, Class II, BMI 35-39.9 10/13/2019 1 Last Assessment & Plan: Assessment: BMI 38.74 documented as of this encounter (statuses as of 12/26/2021) [facility]07-20-2021 History of Past illness Narrative* Problem Noted Date Resolved Date Obesity 09/03/2020 11/29/2020 Abdominal pain 02/01/2020 04/08/2020 Moderate episode of recurrent major depressive d isorder 11/21/2019 01/03/2020 Obesity, Class II, BMI 35-39.9 10/13/2019 1 Last Assessment & Plan: Assessment: BMI 38.74 documented as of this encounter (statuses as of 01/01/2022) [facility]07-20-2021 History of Past illness Narrative* Problem Noted Date Resolved Date Obesity 09/03/2020 11/29/2020 Abdominal pain 02/01/2020 04/08/2020 Moderate episode of recurrent major depressive d isorder 11/21/2019 01/03/2020 Obesity, Class II, BMI 35-39.9 10/13/2019 1 Last Assessment & Plan: Assessment: BMI 38.74 documented as of this encounter (statuses as of 01/02/2022) [facility]07-20-2021 History of Past illness Narrative* Problem Noted Date Resolved Date Obesity 09/03/2020 11/29/2020 Abdominal pain 02/01/2020 04/08/2020 Moderate episode of recurrent major depressive d isorder 11/21/2019 01/03/2020 Obesity, Class II, BMI 35-39.9 10/13/2019 1 Last Assessment & Plan: Assessment: BMI 38.74 documented as of this encounter (statuses as of 01/06/2022) [facility]07-20-2021 History of Past illness Narrative* Problem Noted Date Resolved Date Obesity 09/03/2020 11/29/2020 Abdominal pain 02/01/2020 04/08/2020 Moderate episode of recurrent major depressive d isorder 11/21/2019 01/03/2020 Obesity, Class II, BMI 35-39.9 10/13/2019 1 Last Assessment & Plan: Assessment: BMI 38.74 documented as of this encounter (statuses as of 01/20/2022) [facility]07-20-2021 History of Past illness Narrative* Problem Noted Date Resolved Date Obesity 09/03/2020 11/29/2020 Abdominal pain 02/01/2020 04/08/2020 Moderate episode of recurrent major depressive d isorder 11/21/2019 01/03/2020 Obesity, Class II, BMI 35-39.9 10/13/2019 1 Last Assessment & Plan: Assessment: BMI 38.74 documented as of this encounter (statuses as of 01/28/2022) [facility]07-20-2021 History of Past illness Narrative* Problem Noted Date Resolved Date Obesity 09/03/2020 11/29/2020 Abdominal pain 02/01/2020 04/08/2020 Moderate episode of recurrent major depressive d isorder 11/21/2019 01/03/2020 Obesity, Class II, BMI 35-39.9 10/13/2019 1 Last Assessment & Plan: Assessment: BMI 38.74 documented as of this encounter (statuses as of 02/02/2022) [facility]07-20-2021 History of Past illness Narrative* Problem Noted Date Resolved Date Obesity 09/03/2020 11/29/2020 Abdominal pain 02/01/2020 04/08/2020 Moderate episode of recurrent major depressive d isorder 11/21/2019 01/03/2020 Obesity, Class II, BMI 35-39.9 10/13/2019 1 Last Assessment & Plan: Assessment: BMI 38.74 documented as of this encounter (statuses as of 02/02/2022) [facility]07-20-2021 History of Past illness Narrative* Problem Noted Date Resolved Date Obesity 09/03/2020 11/29/2020 Abdominal pain 02/01/2020 04/08/2020 Moderate episode of recurrent major depressive d isorder 11/21/2019 01/03/2020 Obesity, Class II, BMI 35-39.9 10/13/2019 1 Last Assessment & Plan: Assessment: BMI 38.74 documented as of this encounter (statuses as of 02/03/2022) [facility]07-20-2021 History of Past illness Narrative* Problem Noted Date Resolved Date Obesity 09/03/2020 11/29/2020 Abdominal pain 02/01/2020 04/08/2020 Moderate episode of recurrent major depressive d isorder 11/21/2019 01/03/2020 Obesity, Class II, BMI 35-39.9 10/13/2019 1 Last Assessment & Plan: Assessment: BMI 38.74 documented as of this encounter (statuses as of 02/03/2022) [facility]07-20-2021 History of Past illness Narrative* Problem Noted Date Resolved Date Obesity 09/03/2020 11/29/2020 Abdominal pain 02/01/2020 04/08/2020 Moderate episode of recurrent major depressive d isorder 11/21/2019 01/03/2020 Obesity, Class II, BMI 35-39.9 10/13/2019 1 Last Assessment & Plan: Assessment: BMI 38.74 documented as of this encounter (statuses as of 02/04/2022) [facility]07-20-2021 History of Past illness Narrative* Problem Noted Date Resolved Date Obesity 09/03/2020 11/29/2020 Abdominal pain 02/01/2020 04/08/2020 Moderate episode of recurrent major depressive d isorder 11/21/2019 01/03/2020 Obesity, Class II, BMI 35-39.9 10/13/2019 1 Last Assessment & Plan: Assessment: BMI 38.74 documented as of this encounter (statuses as of 02/06/2022) [facility]07-20-2021 History of Past illness Narrative* Problem Noted Date Resolved Date Obesity 09/03/2020 11/29/2020 Abdominal pain 02/01/2020 04/08/2020 Moderate episode of recurrent major depressive d isorder 11/21/2019 01/03/2020 Obesity, Class II, BMI 35-39.9 10/13/2019 1 Last Assessment & Plan: Assessment: BMI 38.74 documented as of this encounter (statuses as of 02/15/2022) [facility]07-20-2021 History of Past illness Narrative* Problem Noted Date Resolved Date Obesity 09/03/2020 11/29/2020 Abdominal pain 02/01/2020 04/08/2020 Moderate episode of recurrent major depressive d isorder 11/21/2019 01/03/2020 Obesity, Class II, BMI 35-39.9 10/13/2019 1 Last Assessment & Plan: Assessment: BMI 38.74 documented as of this encounter (statuses as of 02/18/2022) [facility]07-20-2021 History of Past illness Narrative* Problem Noted Date Resolved Date Obesity 09/03/2020 11/29/2020 Abdominal pain 02/01/2020 04/08/2020 Moderate episode of recurrent major depressive d isorder 11/21/2019 01/03/2020 Obesity, Class II, BMI 35-39.9 10/13/2019 1 Last Assessment & Plan: Assessment: BMI 38.74 documented as of this encounter (statuses as of 03/05/2022) [address]20-2021 History of Past illness Narrative* Problem Noted Date Resolved Date Obesity 09/03/2020 11/29/2020 Abdominal pain 02/01/2020 04/08/2020 Moderate episode of recurrent major depressive d isorder 11/21/2019 01/03/2020 Obesity, Class II, BMI 35-39.9 10/13/2019 1 Last Assessment & Plan: Assessment: BMI 38.74 documented as of this encounter (statuses as of 03/05/2022) [facility]07-20-2021 History of Past illness Narrative* Problem Noted Date Resolved Date Obesity 09/03/2020 11/29/2020 Abdominal pain 02/01/2020 04/08/2020 Moderate episode of recurrent major depressive d isorder 11/21/2019 01/03/2020 Obesity, Class II, BMI 35-39.9 10/13/2019 1 Last Assessment & Plan: Assessment: BMI 38.74 documented as of this encounter (statuses as of 03/07/2022) [address]20-2021 History of Past illness Narrative* Problem Noted Date Resolved Date Obesity 09/03/2020 11/29/2020 Abdominal pain 02/01/2020 04/08/2020 Moderate episode of recurrent major depressive d isorder 11/21/2019 01/03/2020 Obesity, Class II, BMI 35-39.9 10/13/2019 1 Last Assessment & Plan: Assessment: BMI 38.74 documented as of this encounter (statuses as of 03/30/2022) [facility]07-20-2021 History of Past illness Narrative* Problem Noted Date Resolved Date Obesity 09/03/2020 11/29/2020 Abdominal pain 02/01/2020 04/08/2020 Moderate episode of recurrent major depressive d isorder 11/21/2019 01/03/2020 Obesity, Class II, BMI 35-39.9 10/13/2019 1 Last Assessment & Plan: Assessment: BMI 38.74 documented as of this encounter (statuses as of 06/14/2022) [address]20-2021 History of Past illness Narrative* Problem Noted Date Resolved Date Obesity 09/03/2020 11/29/2020 Abdominal pain 02/01/2020 04/08/2020 Moderate episode of recurrent major depressive d isorder 11/21/2019 01/03/2020 Obesity, Class II, BMI 35-39.9 10/13/2019 1 Last Assessment & Plan: Assessment: BMI 38.74 documented as of this encounter (statuses as of 06/18/2022) [facility]05-18-2021 Emergency department Note* Nabila Childs RN - [...] Report [facility] EMERGENCY DEPARTMENT Service Date:.07/02/20 PCP: Shanna June [...] Social Gatherings with Friends and Family: Attends [employer] Services: Active Member of Clubs or Organizations: [...] POSITIVE ANTIBODY SCREEN NEGATIVE ARM BAND NUMBER [id number] URINALYSIS, MACRO Result Value Ref Range COLOR, [...] H&H is stable. She was started on Stanley and Zofran. Follow up with her [employer]. Chart was 5 to the [employer]'s office. 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 She is discharged [...] clots documented in this [facility]07-24-2020 Evaluation + Plan note Future Appointments Appointment Date:07/23/2022 01:00:00 PM Scheduled Provider: Location:[facility] Appointment Type:CV Echo (FT) Appointment Date:09/07/2022 11:00:00 AM Scheduled Provider:Jamil PRICE MD Location:[facility] Appointment Type:URO New Patient Future Scheduled Tests Radiology* US Renal 06/10/22 * Echo Transthoracic Complete 07/23/22 [facility]05-24-2020 Evaluation + Plan note Future Appointments Appointment Date:07/07/2022 11:00:00 AM Scheduled Provider: [facility] Type:CV Echo (FT) Appointment Date:07/08/2022 01:00:00 PM Scheduled Provider:Chetna Jack MD [facility] Type:Cardiology New Patient (FT) Future Scheduled Tests Radiology* US Renal 06/10/22 * Echo Transthoracic [facility] Future Appointments Appointment Date:06/11/2022 03:00:00 PM Scheduled Provider:Chetna Jack MD [facility] Type:Cardiology New Patient (FT) Future Scheduled Tests Radiology* US [facility]10[facility] Future Appointments Appointment Date:09/07/2022 11:00:00 AM Scheduled Provider:Jamil PRICE MD Location:[facility] Appointment Type:URO New Patient Future Scheduled Tests Radiology* US [facility]10[facility] Future Appointments Appointment Date:01/20/2023 10:00:00 AM Scheduled Provider:Rajni Rouse MD Location:[facility] Appointment Type:URO Office Visit Future Scheduled Tests Radiology* US Renal 06/10/22 [facility] evaluation + Plan note Future Appointments Appointment Date:10/21/2022 02:20:00 PM Scheduled Provider:Jaquan Paula Location:[facility] Appointment Type: ER/Hospital Follow Up Appointment Date:11/20/2022 02:40:00 PM Scheduled Provider: Location:[facility] Appointment Type: Lab Draw Appointment Date:01/20/2023 10:00:00 AM Scheduled Provider:Rajni Rouse MD Location:[facility] Appointment Type:URO Office Visit Future Scheduled Tests Laboratory* T3 Free 10/07/22 * Thyroid Stimulating Hormone 10/07/22 * Free T4 10/07/22 Radiology* US [facility]10[facility] Future Appointments Appointment Date:11/19/2022 02:30:00 PM Scheduled Provider:Odilon Strange MD [facility] Appointment Type:Cardiology New Patient (FT) Appointment Date:01/20/2023 10:00:00 AM Scheduled Provider:Rajni Rouse MD Location:[facility] Appointment Type:URO Office Visit Future Scheduled Tests Radiology* US Renal [facility]10/22 [facility] Future Appointments Appointment Date:07/13/2023 08:20:00 AM Scheduled Provider:OLGA GATICA PA-C Location:[facility] Appointment Type:URO Office Visit Appointment Date:08/04/2023 09:45:00 AM Scheduled Provider:Rajni Rouse MD Location:[facility] Appointment Type:URO Office Visit Future Scheduled Tests Radiology* US Renal 06/10/22 [facility] note* Diagnosis Complex ovarian cyst- Primary Other and unspecified ovarian cyst Uterine leiomyoma, unspecified location [facility] Contusion of right thumb without damage to nail, initial encounter- Primary documented in this encounter [employer]: evaluation note* Diagnosis 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 [facility] Diagnosis Acetabular labrum tear, right, initial encounter- Primary documented in this encounter [facility] note* Diagnosis Tear of right acetabular labrum, subsequent encounter- Primary documented in this encounter [facility] note* Diagnosis Tear of right acetabular labrum, subsequent encounter- Primary Tear of right acetabular labrum, subsequent encounter documented in this encounter [facility] note* Diagnosis Generalized abdominal pain- Primary Abdominal pain, generalized documented in this encounter [email or web address] Phone: evaluation note* Diagnosis Tear of right acetabular labrum, subsequent encounter- Primary documented in this encounter [facility] noteMission eTutor Other [facility] noteNo InformationMediKeeper Other [facility]* Diagnosis S/P laparoscopic sleeve gastrectomy- Primary Bariatric surgery status Obesity, Class I, BMI 30-34.9 Obesity, unspecified Dietary counseling and surveillance Dietary surveillance and counseling documented in this encounter [facility] note* Diagnosis Tear of right acetabular labrum, subsequent encounter- Primary documented in this encounter [facility] note* Diagnosis Dental infection- Primary Acute apical periodontitis of pulpal origin documented in this encounter [facility] [email or web address] Phone: evaluation note* Diagnosis Gastroesophageal reflux disease, unspecified whether esophagitis present- Primary Bariatric surgery status Weight disorder Other symptoms concerning nutrition, metabolism, and development Class 1 obesity with serious comorbidity and body mass index (BMI) of 31.0 to 31.9 in adult, unspecified obesity type S/P laparoscopic sleeve gastrectomy Bariatric surgery status Dietary counseling and surveillance Dietary surveillance and counseling documented in this encounter [facility] note* Diagnosis Gastroesophageal reflux disease without esophagitis- Primary Esophageal reflux documented in this encounter [facility] note* Diagnosis Gastroesophageal reflux disease without esophagitis- Primary Esophageal reflux S/P laparoscopic sleeve gastrectomy Bariatric surgery status documented in this encounter [facility] note* Diagnosis Regurgitation of food- Primary Gastroesophageal reflux disease, unspecified whether esophagitis present documented in this encounter [facility] note* Diagnosis Regurgitation of food Gastroesophageal reflux disease, unspecified whether esophagitis present documented in this encounter [facility] note* Diagnosis Gastroesophageal reflux disease without esophagitis Esophageal reflux documented in this encounter [facility] note* Diagnosis Gastroesophageal reflux disease, unspecified whether esophagitis present- Primary [facility] Diagnosis Gastroesophageal reflux disease with esophagitis without hemorrhage- Primary RICHAR (obstructive sleep apnea) Obstructive sleep apnea (adult) (pediatric) Class 1 obesity with serious comorbidity and body mass index (BMI) of 33.0 to 33.9 in adult, unspecified obesity type S/P laparoscopic sleeve gastrectomy Bariatric surgery status Weight disorder Other symptoms concerning nutrition, metabolism, and development [facility]* Diagnosis Pre-op evaluation- Primary Preoperative examination, [...] esophagitis without hemorrhage [facility] this [facility]* Diagnosis S/P bariatric surgery- Primary Bariatric surgery status Postoperative pain Other acute postoperative pain Primary osteoarthritis involving multiple joints [facility] this [facility]* Diagnosis S/P gastric surgery- Primary Other postprocedural status Dietary counseling Dietary surveillance and counseling documented [facility] this [facility]* Diagnosis Postoperative pain Other acute postoperative pain documented in this [facility]* Diagnosis Acetabular labrum tear, right, subsequent encounter- Primary documented [facility] this [facility]* Diagnosis Esophageal dysphagia- Primary Dysphagia, pharyngoesophageal phase S/P gastric bypass Bariatric surgery status Postoperative malabsorption Other and unspecified postsurgical nonabsorption documented in this [facility]* Diagnosis Esophageal dysphagia Dysphagia, pharyngoesophageal phase S/P gastric bypass Bariatric surgery status S/P bariatric surgery Bariatric surgery status [facility] Diagnosis Polyarthralgia- Primary Pain in joint, multiple sites Malaise and fatigue Other malaise and fatigue Subjective fever S/P laparoscopic sleeve gastrectomy Bariatric surgery status History of syncope Other specified personal history presenting hazards to health History of adrenal insufficiency Personal history of other endocrine, metabolic, and immunity disorders Hypothyroidism, unspecified type documented in this [facility]* Diagnosis Encounter to discuss test results- Primary Other specified counseling NO SHOW documented in this encounter [facility] note* Diagnosis Constipation, unspecified constipation type- Primary Nausea Nausea alone Rash of face Rash and other nonspecific skin eruption Enlarged lymph nodes Enlargement of lymph nodes documented in this encounter [facility] note* Diagnosis Vernal conjunctivitis of both eyes- Primary documented in this encounter [facility] note* Diagnosis Rash and nonspecific skin eruption- Primary Rash and other nonspecific skin eruption Pain in eye, unspecified laterality Facial edema Edema documented in this encounter [facility] note* Diagnosis Encounter for surgical aftercare following surgery of digestive system- Primary Aftercare following surgery of the teeth, oral cavity and digestive system, NEC Impaired intestinal absorption Unspecified intestinal malabsorption Esophageal dysphagia Dysphagia, pharyngoesophageal phase Gastroesophageal reflux disease, unspecified whether esophagitis present S/P bariatric surgery Bariatric surgery status documented in this encounter [facility] note* Diagnosis ARSALAN (generalized anxiety disorder)- Primary Generalized anxiety disorder Panic disorder without agoraphobia Moderate recurrent major depression (HCC) Major depressive disorder, recurrent episode, moderate documented in this encounter [facility] note* Diagnosis Postoperative malabsorption- Primary Other and unspecified postsurgical nonabsorption S/P gastric bypass Bariatric surgery status Overweight (BMI 25.0-29.9) Overweight Dietary counseling and surveillance Dietary surveillance and counseling documented in this encounter [facility] note* Diagnosis ARSALAN (generalized anxiety disorder)- Primary Generalized anxiety disorder Panic disorder without agoraphobia Moderate recurrent major depression (HCC) Major depressive disorder, recurrent episode, moderate documented in this encounter [facility] note* Diagnosis Epigastric pain- Primary Abdominal pain, epigastric documented in this encounter [facility] note* Diagnosis Back strain, initial encounter- Primary [facility] Diagnosis Generalized abdominal pain- Primary Abdominal pain, generalized documented in this encounter [facility] note* Diagnosis Nausea- Primary Nausea alone documented in this encounter [facility] note* Diagnosis Gastroesophageal reflux disease, unspecified whether esophagitis present documented in this encounter [facility] note* Diagnosis Generalized anxiety disorder documented in this encounter [facility] note* Diagnosis Nausea- Primary Nausea alone RUQ pain Abdominal pain, right upper quadrant History of cholecystectomy Other acquired absence of organ documented in this encounter [facility] note* Diagnosis Dehydration- Primary RUQ pain Abdominal pain, right upper quadrant documented in this encounter [facility] note* Diagnosis Right knee pain, unspecified chronicity- Primary documented in this encounter [facility] note* Diagnosis Post-operative pain- Primary Other acute postoperative pain 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 documented in this encounter [facility] note* Diagnosis Dehydration- Primary Nausea Nausea alone RUQ pain Abdominal pain, right upper quadrant documented in this encounter [facility] note* Diagnosis RUQ pain- Primary Abdominal pain, right upper quadrant Chronic nausea Nausea alone documented in this encounter [facility] note* Diagnosis Chronic nausea Nausea alone RUQ pain Abdominal pain, right upper quadrant documented in this encounter [facility] note* Diagnosis Abdominal pain, unspecified abdominal location- Primary documented in this encounter [facility] note* Diagnosis Generalized abdominal pain- Primary Abdominal pain, generalized documented in this encounter [facility] note* Diagnosis Nausea Nausea alone RUQ pain Abdominal pain, right upper quadrant History of cholecystectomy Other acquired absence of organ documented in this encounter [facility] note* Diagnosis Median arcuate ligament syndrome (HCC)- Primary Celiac artery compression syndrome Neuralgia and neuritis Neuralgia, neuritis, and radiculitis, unspecified documented in this encounter [facility] note* Diagnosis Chronic pain syndrome- Primary 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 documented in this encounter [facility] note* Diagnosis Median arcuate ligament syndrome (HCC)- Primary Celiac artery compression syndrome 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 documented in this encounter [facility] noteNo assessment information availableOhiohealth [facility] Work Phone: Evaluation note* Diagnosis Median arcuate ligament syndrome (CMS/HCC)- Primary Celiac artery compression syndrome PONV (postoperative nausea and vomiting) Nausea with vomiting RICHAR (obstructive sleep apnea) Obstructive sleep apnea (adult) (pediatric) Asthma Unspecified asthma Anxiety Anxiety state, unspecified Osteoarthritis Osteoarthrosis, unspecified whether generalized or localized, unspecified site Depression Depressive disorder, not elsewhere classified documented in this encounter [facility] Work Phone: Evaluation note* Diagnosis Abdominal pain- Primary Abdominal pain, unspecified site Abdominal pain Abdominal pain, unspecified site Nausea and vomiting, unspecified vomiting type History of gastric bypass Median arcuate ligament syndrome (CMS/HCC) Celiac artery compression syndrome documented in this encounter [facility] Work Phone: Evaluation note* Diagnosis Median arcuate ligament syndrome (CMS/HCC)- Primary Celiac artery compression syndrome documented in this encounter [facility] Work Phone: Evaluation note* Diagnosis Bariatric surgery status- Primary Dietary zinc deficiency Mineral deficiency, not elsewhere classified Vitamin D deficiency Unspecified vitamin D deficiency documented in this encounter [facility] note* Diagnosis Gastroesophageal reflux disease, unspecified whether esophagitis present- Primary Constipation, unspecified constipation type documented in this encounter [facility] note* Diagnosis Nausea and vomiting, unspecified vomiting type- Primary documented in this encounter [facility] note* Diagnosis Neuralgia and neuritis- Primary Neuralgia, neuritis, and radiculitis, unspecified Gastroesophageal reflux disease without esophagitis Esophageal reflux 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 S/P gastric bypass Bariatric surgery status documented in this [facility]* Diagnosis ARSALAN (generalized anxiety disorder)- Primary Generalized anxiety disorder Panic disorder without agoraphobia Moderate recurrent major depression (HCC) Major depressive disorder, recurrent episode, moderate documented in this encounter [facility] note* Diagnosis Sudden onset of severe abdominal pain- Primary Abdominal pain, unspecified site Nausea and vomiting, unspecified vomiting type PEG (percutaneous endoscopic gastrostomy) status (HCC) Gastrostomy status documented in this [facility]* Diagnosis Median arcuate ligament syndrome (CMS-HCC)- Primary Celiac artery compression syndrome documented in this encounter [facility] Work Phone: Evaluation note* Diagnosis [...] Nausea with vomiting documented in this encounter [facility] Work Phone: Evaluation note* Diagnosis Urinary frequency- Primary Urgency of urination documented [facility] this [facility]* Diagnosis Screening for genitourinary condition Screening for other and unspecified genitourinary condition [facility] Diagnosis ARSALAN (generalized anxiety disorder)- Primary Generalized anxiety disorder Panic disorder without agoraphobia Moderate recurrent major depression (HCC) Major depressive disorder, recurrent episode, moderate [facility]* Diagnosis Onset Date Resolution Status Intractable vomiting with nausea acute Small bowel obstruction acut e [facility] Work Phone: Evaluation note* Diagnosis Onset Date Resolution Status Intractable vomiting with nausea acute Small bowel obstruction acut e Status post gastric bypass for obesity acute [facility] Work Phone: Evaluation note* Diagnosis Chronic nausea- Primary Nausea alone History of laparoscopic partial gastrectomy Personal history of surgery to other organs History of sphincterotomy of sphincter of Oddi Other postprocedural status 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 [facility] Diagnosis Chronic abdominal pain- Primary Abdominal pain, unspecified site Gastroesophageal reflux disease without esophagitis Esophageal reflux Neuralgia and neuritis Neuralgia, neuritis, and radiculitis, unspecified 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 S/P gastric bypass Bariatric surgery status [facility]* Diagnosis Gastroesophageal reflux disease without esophagitis Esophageal reflux Neuralgia and neuritis Neuralgia, neuritis, and radiculitis, unspecified 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 Chronic abdominal pain Abdominal pain, unspecified site S/P gastric bypass Bariatric surgery status [facility]* Diagnosis Gastroesophageal reflux disease without esophagitis Esophageal reflux Neuralgia and neuritis Neuralgia, neuritis, and radiculitis, unspecified 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 Chronic abdominal pain Abdominal pain, unspecified site S/P gastric bypass Bariatric surgery status [facility]* Diagnosis Neuralgia and neuritis- Primary Neuralgia, neuritis, and radiculitis, unspecified 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 documented [facility] this [facility]* Diagnosis Gastroesophageal reflux disease without esophagitis Esophageal reflux Neuralgia and neuritis Neuralgia, neuritis, and radiculitis, unspecified 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 Chronic abdominal pain Abdominal pain, unspecified site S/P gastric bypass Bariatric surgery status documented in this encounter [facility] note* Diagnosis Gastroesophageal reflux disease without esophagitis Esophageal reflux Neuralgia and neuritis Neuralgia, neuritis, and radiculitis, unspecified 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 Chronic abdominal pain Abdominal pain, unspecified site S/P gastric bypass Bariatric surgery status documented in this encounter [facility] note* Diagnosis Gastroesophageal reflux disease, unspecified whether esophagitis present documented in this encounter [facility] note* Diagnosis Gastroesophageal reflux disease, unspecified whether esophagitis present documented in this encounter [facility] note* Diagnosis Gastroesophageal reflux disease, unspecified whether esophagitis present- Primary [facility] Narrative - ReportedNouniversity [facility] eTutor Other History general Narrative - Reported* Type [...] hystectomy 2020 Hospitalization History childbirths Hospitalization History [facility] 2019 Hospitalization History salvador axel-gastritis 1 03/2020 [email or web address] Other Hispdns general Narrative - Reported* Type Description Date [...] repair 03/20/2021 Hospitalization History childbirths Hospitalization History [facility] 2019 Hospitalization History salvador axel-gastritis 1 03/2020 [email or web address] Other History of Present illness Narrative* Sherry Magaña MD - 04/20/2023 3:45 PM EST And I had a phone conversation patient and I had a phone conversation as she was at home in the state of [place] and I was [facility] vascular [place]. She is recovering from a laparotomy for [...] she has seen her general surgeon at [facility] and will be following up with her gastro enterologist at the clinic. I will see her back by virtual visit in 2 months documented in this [facility] Work Phone: Hospital course Narrative No data available for this section [facility] Discharge instructions* Attachments The following attachments cannot be sent through Care Everywhere. * Uterine Fibroids (Sudanese) * Ovarian Cyst: Hemorrhagic (Sudanese) [facility]* Attachments The following attachments cannot be sent through Care Everywhere. * Finger: Bruises (Sudanese) * Subungual Hematoma (Sudanese) documented in this [facility] Work Phone: Hospital Discharge instructions* Attachments The following attachments cannot be sent through Care Everywhere. * Abdominal Pain (Sudanese) [facility] Discharge instructions No data available for this section [facility] Discharge instructions* Attachments The following attachments cannot be sent through Care Everywhere. * Abdominal Pain (Sudanese) [facility] Discharge instructions Additional Instructions Please take medications as prescribed. Return to ER or follow-up with PCP or GI specialist if symptoms worsen. 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 Work Phone: Hospital Discharge instructions Additional [...] fever vomiting despite medication or any other concernsOhiohealth [facility] Work Phone: Hospital Discharge instructions Additional Instructions [facility] to manage care: - Full code - Routine vital signs - NPO - Maintain central line, routine care per protocol - Decompress the J-tube by placing it to gravity drain when she does develop nauseaOhiohealth [facility] Work Phone: Hospital Discharge instructions Additional Instructions Follow up with your [facility] surgeon Return to the ED if you develop worsening symptoms or concernsOhiohealth [facility] Work Phone: Hospital Discharge instructions Additional Instructions If your symptoms return/worsen or you develop any further concerns or symptoms please see your doctor or return to the emergency department immediately.[facility] Work Phone: Progress note No data available for this section [facility] for referral (narrative)* Consultation (Routine) - New Request Specialty Diagnoses / Procedures Referred By Contac Referred To Contact [facility] Diagnoses Articular cartilage disorder of right knee Lucie Mora MD [address] [place] [address] Referral ID Status Reason Start Date Expiration Date V isits Requested Visits Authorized [id number] New Request 06/02/2021 06/27/2022 1 1 [facility] Diagnostic Procedure Only (Routine) - Closed Specialty Diagnoses / Procedures Referred By Contac t Referred To Contact XR IMAGING Diagnoses Acetabular labrum tear, right, initial encounter Procedures XR HIP GENERAL 3V PELV/AP/LAT RIGHT RADEX HIP UNILATERAL WITH PELVIS 2-3 VIEWS Kuldip Yousif MD [address] [place] [address] Xr Imaging Referral ID Status Reason Start Date Expiration Date V isits Requested Visits Authorized [id number] Closed Auto-Generate d Referral 06/18/2021 07/18/2022 1 1 [facility] for referral (narrative)* Outpatient Procedure (Routine) - Pending Review Specialty Diagnoses / Procedures [facility] Diagnoses Gastroesophageal reflux disease without esophagitis Procedures EGD - THERAPEUTIC, EUS, OR TUBE INTERVENTIONS ESOPHAGOGASTRODUODENOSC [place] [id number] [place] [address] Referral ID Status Reason Start Date Expiration Date Visits Requested Visits Authorized [id number] Pending Review Auto-Generat ed Referral 11/17/2021 11/17/2022 1 1 [facility] for referral (narrative)* Outpatient Procedure (Routine) - Authorized Specialty Diagnoses / Procedures [facility] To [facility] Diagnoses Gastroesophageal reflux disease without esophagitis S/P laparoscopic sleeve gastrectomy Procedures PH IMPEDANCE INSERT OFF MEDS ESOPHGL FUNCJ G-ESOP RFLX IMPD ELTRD Breanna Middleton, SLIM.BLASTING MACHINE OPERATOR [address] [place] [address] [address] Referral ID Status Reason Start Date Expiration Date Visits Requested Visits Authorized [id number] Authorized Auto-Generat ed Referral 11/19/2021 11/18/2022 1 1 [facility] for referral (narrative)* Outpatient Procedure (Routine) - Pending Review Specialty Diagnoses / Procedures Referred By Contac t Referred To Contact [facility] Diagnoses Regurgitation of food Gastroesophageal reflux disease, unspecified whether esophagitis present Procedures PH HUERTA INSERT OFF MEDS GASTROESOPHAG REFLX TEST W/TELEMTRY PH Breanna Hernandez APRN.CNP [address] [place] [address] [address] Referral ID Status Reason Start Date Expiration Date Visits Requested Visits Authorized [id number] Pending Review Auto-Generat ed Referral 2 12/17/2022 1 1 [facility] for referral (narrative)* Outpatient Procedure (Routine) - Closed Specialty Diagnoses / Procedures Referred By [facility] Referred To Contact [facility] [place] Diagnoses Gastroesophageal reflux disease without esophagitis Procedures EGD - THERAPEUTIC, EUS, OR TUBE INTERVENTIONS ESOPHAGOGASTRODUODENOSC OPY [place] [id number] [address] Referral ID Status Reason Start Date Expiration Date V isits Requested Visits Authorized [id number] Closed Auto-Generate d Referral 11/17/2021 11/17/2022 1 1 [facility] for referral (narrative)* Outpatient Procedure (Routine) - Pending Review Specialty Diagnoses / Procedures Referred By [facility] Referred To Contact [facility] [place] Diagnoses Pre-op evaluation Procedures ECG COMPLETE ECG ROUTINE ECG W/LEAST 12 LDS W/I&R Ioana Hogan PA-C [address] [place] [address] [facility] [address] [address] Referral ID Status Reason Start Date Expiration Date Visits Requested Visits Authorized [id number] Pending Review Auto-Generat ed Referral 2 01/28/2023 1 1 [facility] for referral (narrative)* Outpatient Procedure (Routine) - Authorized Specialty Diagnoses / Procedures Referred By Contac t Referred To Contact [facility] Diagnoses Esophageal dysphagia S/P gastric bypass Procedures EGD - THERAPEUTIC, EUS, OR TUBE INTERVENTIONS EGD BALLOON DILATION ESOPHAGUS <30 MM DIAM Breanna Stern APRN.BLASTING MACHINE OPERATOR [address] [place] [address] [address] Referral ID Status Reason Start Date Expiration Date Visits Requested Visits Authorized [id number] Authorized Auto-Generat ed Referral 03/05/2022 03/05/2023 1 1 [facility] for referral (narrative)* Outpatient Procedure (Routine) - Closed Specialty Diagnoses / Procedures [facility] To [facility] Diagnoses Esophageal dysphagia S/P gastric bypass Procedures EGD - THERAPEUTIC, EUS, OR TUBE INTERVENTIONS EGD BALLOON DILATION ESOPHAGUS <30 MM DIAM Breanna Stern APRN.BLASTING MACHINE OPERATOR [address] [place] [address] [address] Referral ID Status Reason Start Date Expiration Date V isits Requested Visits Authorized [id number] Closed Auto-Generate d Referral 03/05/2022 03/05/2023 1 1 [facility] for referral (narrative)* Outpatient Procedure (Routine) - Pending Review Specialty Diagnoses / Procedures [facility] Referred To Contact [facility] Diagnoses Constipation, unspecified constipation type Procedures ADULT [place] ANORECTAL MANOMETRY ANORECTAL MANOMETRY Kasie Avalos MD [address] [place] [address] [phone] Referral ID Status Reason Start Date Expiration Date Visits Requested Visits Authorized [id number] Pending Review Auto-Generat ed Referral 07/22/2022 07/23/2023 1 1 [facility] for referral (narrative)* Diagnostic Procedure Only (Routine) - Pending Review Specialty Diagnoses / Procedures Referred By Andriyac t Referred To Contact XR IMAGING Diagnoses S/P bariatric surgery Gastroesophageal reflux disease, unspecified whether esophagitis present Procedures XR UPPER GI ROUTINE DOUBLE CONTRAST/AIR RADIOLOGIC EXAM UPR GI TRC DOUBLE CONTRAST STUDY Breanna Stern, SLIM.BETH [address] [place] [address] Xr Imaging Referral ID Status Reason Start Date Expiration Date Visits Requested Visits Authorized [id number] Pending Review Auto-Generat ed Referral 09/18/2022 10/18/2023 1 1 [facility] for referral (narrative)* Outpatient Procedure (Routine) - Authorized Specialty Diagnoses / Procedures Referred By Jazmine hooks Referred To Contact [facility] Diagnoses Epigastric pain Procedures EGD DIAGNOSTIC ESOPHAGOGASTRODUODENOSC OP[place] [address] [id number] [facility] [place] [address] [phone] Referral ID Status Reason Start Date Expiration Date Visits Requested Visits Authorized [id number] Authorized Auto-Generat ed Referral 10/20/2022 10/21/2023 1 1 [facility] for referral (narrative)* Diagnostic Procedure Only (Routine) - Closed Specialty Diagnoses / Procedures Referred By Jazmine t Referred To Contact US IMAGING Diagnoses Nausea RUQ pain History of cholecystectomy Procedures US ABD RIGHT UPPER QUADRANT US ABDOMINAL REAL [place] W/[place] [address] [place] [address] Us Imaging [id number] Referral ID Status Reason Start Date Expiration Date V isits Requested Visits Authorized [id number] Closed Auto-Generate d Referral 11/04/2022 12/04/2023 1 1 * Diagnostic Procedure Only (Routine) - Authorized Specialty Diagnoses / Procedures Referred By Contact Referred To Contact MOLECULAR & FUNCTIONAL IMAGING Diagnoses Nausea RUQ pain History of cholecystectomy Procedures NM HEPATOBILIARY W EF AND/OR RX HEPATOBIL SYST IMAG INC GB W/[place] [address] [place] [address] Molecular & Functional Imaging [address] [place] [address] Referral ID Status Reason Start Date Expiration Date Visits Requested Visits Authorized [id number] Authorized Auto-Generat ed Referral 11/04/2022 12/04/2023 1 1 [facility] for referral (narrative)* Diagnostic Procedure Only (Routine) - Pending Review Specialty Diagnoses / Procedures Referred By Contac t Referred To Contact XR IMAGING Diagnoses Right knee pain, unspecified chronicity Procedures XR KNEE GENERAL 4V AP BOTH/PA BOTH/LAT/MERC RIGHT RADIOLOGIC EXAM KNEE COMPLETE 4/MORE VIEWS Agustin Salmeron PA-C [address] [place] [address] Xr Imaging [id number] Referral ID Status Reason Start Date Expiration Date Visits Requested Visits Authorized [id number] Pending Review Auto-Generat ed Referral 11/04/2022 12/04/2023 1 1 [facility] for referral (narrative)* Outpatient Procedure (Urgent) - Authorized Specialty Diagnoses / Procedures Referred By Contac t Referred To [facility] Diagnoses Chronic nausea RUQ pain Procedures US MESENTERIC ARTERY CMPLT VAS LAB DUP-SCAN ARTL TIARA ABDL/PEL/SCROT&/[place] [address] [place] [address] [facility] [address] [place] [address] Referral ID Status Reason Start Date Expiration Date Visits Requested Visits Authorized [id number] Authorized Auto-Generat ed Referral 11/23/2022 11/23/2023 1 1 [facility] for referral (narrative)* Outpatient Procedure (Urgent) - Closed Specialty Diagnoses / Procedures [facility]erred To Contact [facility] Diagnoses Chronic nausea RUQ pain Procedures US MESENTERIC ARTERY CMPLT VAS LAB DUP-SCAN ARTL TIARA ABDL/PEL/SCROT&/[place] [address] [place] [address] [place] [phone] Referral ID Status Reason Start Date Expiration Date V isits Requested Visits Authorized [id number] Closed Auto-Generate d Referral 11/23/2022 11/23/2023 1 1 T [facility] for referral (narrative)* Diagnostic Procedure Only (Routine) - Closed Specialty Diagnoses / Procedures [facility] Referred To Contact US IMAGING Diagnoses Nausea RUQ pain History of cholecystectomy Procedures US ABD RIGHT UPPER QUADRANT US ABDOMINAL REAL [place] W/[place] [address] [place] [address] Us Imaging [id number] Referral ID Status Reason Start Date Expiration Date V isits Requested Visits Authorized [id number] Closed Auto-Generate d Referral 11/04/2022 12/04/2023 1 1 [facility] for referral (narrative)* Outpatient Procedure (Routine) - Authorized Specialty Diagnoses / Procedures [facility] Referred To Contact [facility] Diagnoses Gastroesophageal reflux disease, unspecified whether esophagitis present Procedures PH HUERTA INSERT ON MEDS GASTROESOPHAG REFLX TEST W/TELEMTRY PH ELTRD Kasie Avalos MD [address] [place] [address] [address] Referral ID Status Reason Start Date Expiration Date Visits Requested Visits Authorized [id number] Authorized Auto-Generat ed Referral 04/28/2023 04/27/2024 1 1 * Outpatient Procedure (Routine) - Authorized Specialty Diagnoses / Procedures Referred By Jazmine hokos Referred To Contact [facility] Diagnoses Gastroesophageal reflux disease, unspecified whether esophagitis present Procedures EGD - THERAPEUTIC, EUS, OR TUBE INTERVENTIONS ESOPHAGOGASTRODUODENOSC OPY TRANS[place] [address] [place] [address] [address] Referral ID Status Reason Start Date Expiration Date Visits Requested Visits Authorized [id number] Authorized Auto-Generat ed Referral 04/28/2023 04/27/2024 1 1 [facility] for referral (narrative)* Outpatient Procedure (Routine) - Closed Specialty Diagnoses / Procedures Referred By Jazmine hooks Referred To Contact [facility] Diagnoses Gastroesophageal reflux disease, unspecified whether esophagitis present Procedures EGD - THERAPEUTIC, EUS, OR TUBE INTERVENTIONS ESOPHAGOGASTRODUODENOSC OPY TRANSORAL DIAGNOSTIC Kasie Avalos MD [address] [place] [address] [address] Referral ID Status Reason Start Date Expiration Date V isits Requested Visits Authorized [id number] Closed Auto-Generate d Referral 04/28/2023 04/27/2024 1 1 [facility] for visit NarrativeGeneral Surgery Referral Updatert eTutor Other Reason for visit Narrative* Outpatient Procedure (Routine) - Closed Specialty Diagnoses / Procedures [facility] Referred To Contact [facility] [place] Diagnoses Gastroesophageal reflux disease without esophagitis Procedures EGD - THERAPEUTIC, EUS, OR TUBE INTERVENTIONS ESOPHAGOGASTRODUODENOSC OPY [place] [address] [place] [address] [address] Referral ID Status Reason Start Date Expiration Date V isits Requested Visits Authorized [id number] Closed Auto-Generate d Referral 11/17/2021 11/17/2022 1 1 [facility] for visit Narrative* Outpatient Procedure (Routine) - Closed Specialty Diagnoses / Procedures Referred By Jazmine hooks Referred To Contact [facility] [place] Diagnoses Esophageal dysphagia S/P gastric bypass Procedures EGD - THERAPEUTIC, EUS, OR TUBE INTERVENTIONS EGD BALLOON DILATION ESOPHAGUS <30 MM DIAM Breanna Stern, ENGINEERING SCIENTIST.BLASTING MACHINE OPERATOR [address] [place] [address] [address] Referral ID Status Reason Start Date Expiration Date V isits Requested Visits Authorized [id number] Closed Auto-Generate d Referral 03/05/2022 03/05/2023 1 1 [facility] for visit Narrative* Outpatient Procedure (Urgent) - Closed Specialty Diagnoses / Procedures Referred By Jazmine Referred To Contact [facility] [place] Diagnoses Chronic nausea RUQ pain Procedures US MESENTERIC ARTERY CMPLT VAS LAB DUP-SCAN ARTL TIARA ABDL/PEL/SCROT&/[place] [address] [place] [address] [address] [place] [address] Referral ID Status Reason Start Date Expiration Date V isits Requested Visits Authorized [id number] Closed Auto-Generate d Referral 11/23/2022 11/23/2023 1 1 [facility] for visit Narrative* Diagnostic Procedure Only (Routine) - Closed Specialty Diagnoses / Procedures Referred By Contac t Referred To Contact US IMAGING Diagnoses Nausea RUQ pain History of cholecystectomy Procedures US ABD RIGHT UPPER QUADRANT US ABDOMINAL REAL TIME W/[place] [address] [place] [address] [place] [address] Referral ID Status Reason Start Date Expiration Date V isits Requested Visits Authorized [id number] Closed Auto-Generate d Referral 11/04/2022 12/04/2023 1 1 [facility] for visit Narrative* Outpatient Procedure (Routine) - Closed Specialty Diagnoses / Procedures Referred By Contac t Referred To Contact [facility] Diagnoses Gastroesophageal reflux disease, unspecified whether esophagitis present Procedures EGD - THERAPEUTIC, EUS, OR TUBE INTERVENTIONS ESOPHAGOGASTRODUODENOSC OPY TRANSORAL DIAGNOSTIC Kasie Avalos MD [address] [place] [address] [facility] [place] [address] [place] [address] Referral ID Status Reason Start Date Expiration Date V isits Requested Visits Authorized [id number] Closed Auto-Generate d Referral 04/28/2023 04/27/2024 1 1 [facility] Summary Purpose Family History Relationship Condition Age at Onset Recorded Date/T fabiano father Hypothyroidism Unknown Not Specified Family history of mental disorder Unknow n Hypertension Unknown Diabetes mellitus Unknown Relationship Condition Age at Onset Recorded Date/T fabiano father Hypothyroidism Unknown mother Family history of mental disorder Unknown Hypertension Unknown Diabetes mellitus Unknown Advance Directives Documents on File Type Date Recorded 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 Advance Directive(s) 03/13/2021 9:49 AM Date Activated Date Inactivated Comments 12/06/2022 9:37 PM 12/09/2022 8:48 PM Question Answer Comments Full Code Order Discussed With: Patient Date Activated Date Inactivated Comments 11/22/2022 8:03 PM 11/23/2022 5:11 PM Question Answer Comments Full Code Order Discussed With: Patient Documents on File Type Date Recorded 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 Advance Directive(s) 03/13/2021 9:49 AM [...] Documents on File Type Date Recorded 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 Advance Directive(s) 07/04/2021 4:13 PM [...] Documents on File Type Date Recorded 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 Advance Directive(s) 03/13/2021 9:49 AM [...] 4:02 PM Date Activated Date Inactivated Comments 08/07/2023 [...] with Follow Up in 24 Hours ([facility]) (Sudanese) documented in this encounter Assessments Diagnosis Lower abdominal pain- Primary Abdominal pain, other specified site Reason for Referral Status Reason Specialty Diagnoses / Procedures Referre d By Contact Referred To Contact Closed Procedures US PELVIC WITH TRANSVAGINAL WITH DOPPLER Juanito Laird PA-C [address] [place] [address] Specialty Diagnoses / Procedures Referred By Contact Referred To Contact [facility] Diagnoses Tear of right acetabular labrum, subsequent encounter Procedures CONSULT TO PHYSICAL THERAPY PHYSICAL THERAPY EVALUATION HIGH COMPLEX 45 MINS Justine Shabazz PA-C [address] [place] [address] [facility] [place] [address] [place] [address] Referral ID Status Reason Start Date Expiration Date Visits Requested Visits Authorized [id number] Pending Review Auto-Generat ed Referral 06/23/2021 06/23/2022 1 1 Reason 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 - Please request Dr. Keven Gomez [phone] Diagnosis 1 Hernia (K46.9) Referral Organization [facility] Family Priscila Guo Referring Provider First Name Shanna Referring Provider Last Name Slade Referring Provider Specialty Nurse Pract itioner Referred Organization [facility] Referred Address [address] [facility],[place],[address] Referred Provider Specialty General Surg ammon Referral Priority Routine Specialty Diagnoses / Procedures Referred By Jazmine hooks Referred To Contact Diagnoses S/P laparoscopic sleeve gastrectomy Procedures CONSULT TO BARIATRIC NUTRITION OFFICE/OUTPATIENT [facility] 60-74 MINUTES Sabina Joy APRN.BLASTING MACHINE OPERATOR [address] [place] [address] Referral ID Status Reason Start Date Expiration Date Visits Requested Visits Authorized [id number] Pending Review PCP Requested Referral 10/09/2021 10/09/2022 [...] BARIATRIC ESOPHAGOGASTRODUODENOSCO PY TRANSORAL DIAGNOSTIC Sabina Joy APRN.BLASTING MACHINE OPERATOR [address] [place] [phone] [place] [address] Referral ID Status Reason Start Date Expiration Date Visits Requested Visits Authorized [id number] Pending Review Auto-Generat ed Referral 10/09/2021 10/09/2022 1 1 Specialty Diagnoses / Procedures Referred By Jazmine hooks Referred To Contact Diagnoses RICHAR (obstructive sleep apnea) Procedures CONSULT TO SLEEP MEDICINE - ADULT OFFICE/OUTPATIENT [facility] 60-74 MINUTES Sabina Joy ENGINEERING SCIENTIST.BLASTING MACHINE OPERATOR [address] [place] [phone] Referral ID Status Reason Start Date Expiration Date Visits Requested Visits Authorized [id number] Authorized PCP Requested Referral 2 01/02/2023 1 1 Specialty Diagnoses / Procedures Referred By Jazmine hooks Referred To Contact [facility] Diagnoses S/P bariatric surgery Primary osteoarthritis involving multiple joints Procedures CONSULT TO PHYSICAL THERAPY PHYSICAL THERAPY EVALUATION HIGH COMPLEX 45 MINS Breanna Stern APRN.BLASTING MACHINE OPERATOR [address] [place] [address] [facility] [place] [address] Referral ID Status Reason Start Date Expiration Date Visits Requested Visits Authorized [id number] Pending Review Auto-Generat ed Referral 2 02/03/2023 1 1 Specialty Diagnoses / Procedures Referred By Contac t Referred To Contact Endocrinology Diagnoses History of adrenal insufficiency Hypothyroidism, unspecified type Procedures CONSULT TO ENDOCRINOLOGY OFFICE/OUTPATIENT [facility] 60-74 MINUTES Aliyah Washburn PA-C [address] [place] [address] Referral ID Status Reason Start Date Expiration Date Visits Requested Visits Authorized [id number] Authorized PCP Requested Referral 06/12/2022 06/12/2023 1 1 Specialty Diagnoses / Procedures Referred By Contac t Referred To Contact Allergy Diagnoses Rash and nonspecific skin eruption Pain in eye, unspecified laterality Facial edema Procedures CONSULT TO ALLERGY/IMMUNOLOGY OFFICE/OUTPATIENT [facility] 60-74 MINUTES Samara Evans MD [address] [place] [address] Referral ID Status Reason Start Date Expiration Date Visits Requested Visits Authorized [id number] Authorized PCP Requested Referral 07/28/2022 07/28/2023 1 1 Specialty Diagnoses / Procedures Referred By Contac t Referred To Contact CT IMAGING Diagnoses Generalized abdominal pain Procedures CTA ABD/PEL W IVCON CT ANGIO ABD&PLVIS CNTRST MTRL W/WO CNTRST Agustin Piper MD [address] [place] [address] Ct Imaging [place] [address] Referral ID Status Reason Start Date Expiration Date Visits Requested Visits Authorized [id number] Authorized Auto-Generat ed Referral 3 01/17/2023 1 1 Specialty Diagnoses / Procedures Referred By Contac t Referred To Contact Home Health Services Diagnoses Median arcuate ligament syndrome (CMS/HCC) Alicia Toro, ENGINEERING SCIENTIST-BLASTING MACHINE OPERATOR [address] [place] [address] Referral ID Status Reason Start Date Expiration Date Visits Requested Visits Authorized [id number] Authorized Specialty Services Required 03/08/2023 03/07/2024 999 999 Specialty Diagnoses / Procedures Referred By Contac t Referred To Contact Home Health Services Diagnoses Other [place] [address] [place] [address] Referral ID Status Reason Start Date Expiration Date Visits Requested Visits Authorized [id number] Authorized Specialty Services Required 07/01/2023 06/30/2024 999 999 Specialty Diagnoses / Procedures Referred By Jazmine hooks Referred To Contact Francisco J Steve MD [address] [place] [address] Referral ID Status Reason Start Date Expiration Date V isits Requested Visits Authorized [id number] Pending Review 1 1 Specialty Diagnoses / Procedures Referred By Jazmine hooks Referred To Contact TRANSPLANT Diagnoses Chronic nausea History of laparoscopic partial gastrectomy History of sphincterotomy of sphincter of Oddi Median arcuate ligament syndrome (HCC) Procedures CONSULT TO [facility] LAPAROTOMY CELIOTOMY W/[place] [address] [place] [address] [facility] [address] [place] [address] Referral ID Status Reason Start Date Expiration Date Visits Requested Visits Authorized [id number] Canceled Financial Clearance Required - OON Payor 07/19/2023 07/18/2024 99 99 Medications Administered Section Inactive Administered Medications - up to 3 most recent administrations Medication Order MAR Action Action Date Dose Rate Site benzocaine 20% (TOPEX) TOPICAL, X (OR/PROCEDURE) PRN, Starting on Heena 12/25/21 at 0939, Until Heena 12/25/21 at 0939, Intraprocedure Given 12/25/2021 9:39 AM EST 1 Stanton Meperidine (PF) injection (DEMEROL) X (OR/PROCEDURE) PRN, [...] bowel obstruction home health nurse sent over nausea, wound seeping Reason for Visit Intractable vomiting with nausea Small bowel obstruction Status post gastric bypass for obesity Additional Source Comments INFORMATION SOURCE (unrecogn ized section and content) DATE CREATED AUTHOR 09/11/2017 [facility] DATE CREATED AUTHOR AUTHOR'S ORGANIZ ATION 06/03/2021 [facility] DATE CREATED AUTHOR AUTHOR'S ORGANIZ ATION 06/24/2022 [facility] DATE CREATED AUTHOR AUTHOR'S ORGANIZ ATION 11/01/2022 [facility] DATE CREATED AUTHOR AUTHOR'S ORGANIZ ATION 11/07/2022 [facility] DATE CREATED AUTHOR AUTHOR'S ORGANIZ ATION 11/22/2022 [facility] DATE CREATED AUTHOR AUTHOR'S ORGANIZ ATION 11/29/2022 [facility] DATE CREATED AUTHOR AUTHOR'S ORGANIZ ATION 12/16/2022 [facility] DATE CREATED AUTHOR AUTHOR'S ORGANIZ ATION 02/12/2023 [facility] DATE CREATED AUTHOR AUTHOR'S ORGANIZ ATION 02/18/2023 [facility] DATE CREATED AUTHOR AUTHOR'S ORGANIZ ATION 06/27/2023 [facility] DATE CREATED AUTHOR AUTHOR'S ORGANIZ ATION 07/11/2023 [facility] DATE CREATED AUTHOR AUTHOR'S ORGANIZ ATION 07/21/2023 [facility] DATE CREATED AUTHOR AUTHOR'S ORGANIZ ATION 07/22/2023 [facility] DATE CREATED AUTHOR AUTHOR'S ORGANIZ ATION 08/01/2023 [facility] EPIC DATE CREATED AUTHOR AUTHOR'S ORGANIZ ATION 08/06/2023 [facility] Center DATE CREATED AUTHOR AUTHOR'S ORGANIZ ATION 08/07/2023 [facility] DATE CREATED AUTHOR AUTHOR'S ORGANIZ ATION 09/01/2023 [facility] DATE CREATED AUTHOR AUTHOR'S ORGANIZ ATION 09/01/2023 [facility] Reason for Visit (unrecogniz ed section and content) Reason Comments Fatigue Anxiety Stress Specialty Diagnoses / Procedures Referred By Jazmine hooks Referred To Contact Psychology / ADULT PSYCHOLOGY Diagnoses follow up Procedures VIDEO PSYC/PSYL EST Pablo Lebron, ROSALBA [address] [place] [address] Pablo Lebron, ROSALBA [address] [place] [address] Referral ID Status Reason Start Date Expiration Date V isits Requested Visits Authorized [id number] Pending Review 06/09/2023 09/07/2023 1 1 Reason Comments Abdominal Pain RUQ abdominal pain t hat is spreading across her back and into the left side. pt states that she does not have a gallbladder or appendix and has been treated by [facility] recently for bowel adhesions and it is just getting worse. 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 Reason Comments Follow-up Pt presents for [...] REFLX TEST W/TELEMTRY PH ELTRD Breanna Stern, SLIM.BLASTING MACHINE OPERATOR [address] [place] [address] [facility] [place] [address] [place] [address] Referral ID Status Reason Start Date Expiration Date V isits Requested Visits Authorized [id number] Closed Auto-Generate d Referral 12/25/2021 12/17/2022 1 [...] VIDEO PSYC/PSYL EST Self Pablo Lebron, PSYD [address] [id number] Referral ID Status Reason Start Date Expiration Date V isits Requested Visits Authorized [id number] Outside PCP 09/21/2022 12/20/2022 1 1 Reason Comments Anxiety Stress Specialty Diagnoses / Procedures Referred By Contac t Referred To Contact Psychology / ADULT PSYCHOLOGY Diagnoses Follow up Procedures VIDEO PSYC/PSYL EST Pablo Lebron, PSYD [address] [facility] [address] [place] [address] Pablo Lebron, PSYD [address] [place] [id number] Referral ID Status Reason Start Date Expiration Date V isits Requested Visits Authorized [id number] Pending Review 10/05/2022 01/03/2023 1 1 Reason [...] CT scans showing possible kidney stones near [facility], here today because hands turned [...] 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] Procedures CT UNLISTED PX ABDOMEN MUSCULOSKELETAL SYSTEM Release Median Arcuate Ligament [place] [address] [place] [address] [place] [address] [place] [address] Referral ID Status Reason Start Date Expiration Date Visits Re quested Visits Authorized [id number] 1 1 Reason Comments Abdominal Pain Specialty Diagnoses / Procedures Referred By Contac t Referred To Contact Diagnoses Abdominal pain History of gastric bypass Nausea and vomiting, unspecified vomiting type nausea and vomiting [place] [address] [place] [address] [address] [address] [place] [address] Referral ID Status Reason Start Date Expiration Date Visits Re quested Visits Authorized [id number] 1 1 Reason Comments Weight Loss Surgery Reason Comments Established Patient Reason Comments Appointment Cancel EGD Reason Comments Patient Question Reason Comments Vomiting Reason Comments 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 - 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 Reason Onset Date Comments Refill [...] Procedures [place] [address] [address] [facility] [address] [place] [address] [address] [address] [place] [address] Referral ID Status Reason Start Date Expiration Date Visits Re quested Visits Authorized [id number] 1 1 Reason Comments Received Outside Medical Records Reason Comments Education Of Patient/family Reminder Call 08/26/23 appt confirm ed Reason Comments Establish Care pain Reason Comments Patient Question Gas Welder - Other Reason Onset Date Comments Refill Request 08/23/2023 Reason Onset Date Comments Procedure 08/26/2023 HUERTA 48 Hour pH Capsule Placement Specialty Diagnoses / Procedures Referred By Contac t Referred To Contact [facility] [place] Diagnoses Gastroesophageal reflux disease, unspecified whether esophagitis present Procedures PH HUERTA INSERT ON MEDS GASTROESOPHAG REFLX TEST W/TELEMTRY PH Kaise Sherman MD [address] [place] [address] [address] Referral ID Status Reason Start Date Expiration Date V isits Requested Visits Authorized [id number] Closed Auto-Generate d Referral 04/28/2023 04/27/2024 1 1 Reason Onset Date Comments Procedure 08/31/2023 48 Hr HUERTA pH D ownload Altagracia Arnett RN - 01/30/2020 5:34 PM [...] Report [facility] EMERGENCY DEPARTMENT Service Date:.01/30/20 PCP: Shanna June Chief Complaint: Chief Complaint Patient presents with Abdominal Pain RUQ abdominal pain that is spreading across her back and into the left side. pt states that she does not have a gallbladder or appendix and has been treated by [facility] recently for bowel adhesions and it [...] file Gets together: Not on file Attends gnosticism service: Not on file Active member of [...] with a prescription of Zofran and some Stanley to help with some of the discomfort. [...] 24 hours. 1540 (Given - Provid er: aNbila Childs RN) ketorolac (TORADOL) injection 15 mg [...] 08/28/2021 08/29/2021 08/30/2021 bupivacaine-EPINEPHrine PF (MARCAINE-w/EPINEPHRINE) 0.5% -[id number] injection 10 mL (COMPLETED) 10 mL, Dental, [...] days. 0754 (Given - Provid er: Faviola Scott, DEE) prochlorperazine (COMPAZINE) injection 10 mg (COMPLETED) 10 mg, IntraVENous, ONCE, 1 dose, On 10/31/22 at 0745, If administering IV push, administer at a maximum rate of 5 mg/minute. 0754 (Given - Provid er: Faviola Scott RN) Scheduled Medication Order 10/31/2022 11/01/2022 11/02/2022 diphenhydrAMINE (BENADRYL) injection 50 mg (COMPLETED) 50 mg, Intravenous, ONCE, 1 dose, On Wed11/02/22 [...] at 2100 0840 (Given - Provider: Cole Nuñez, DEE)2122 (Given - Provider: Danny Middleton RN) 0821 [...] RN)2000 (Given - Provider: Eileen Austin RN) 901 [...] oral, Daily with breakfast, First dose on 03/06/23 at 0800 0840 (Given - Provider: Cole [...] mcg, oral, Daily (0630), First dose on Wed03/06/23 at 0630 0551 (Given - Provider: Olga Paz RN) 0544 (Given - Provider: Danny Middleton RN) 0543 (Given - Provider: Eileen Austin, DEE) liothyronine (Cytomel) tablet 5 mcg 5 mcg, oral, Daily, First dose on Wed03/06/23 at 0900 0852 (Given - Provider: Cole Nuñez RN) 0823 (Given - Provider: Nadia Zee, DEE) 09 (Given - Provider: Nadia Zee, DEE) mirtazapine (Remeron) tablet 15 mg 15 mg, oral, Nightly, First dose on Wed03/05/23 at 2100 2122 (Given - Provider: Danny Midldeton RN) 2000 (Given - Provider: Eileen Austin, DEE) 2100 (Due) sennosides (Senokot) tablet 17.2 mg (CANCELED) 17.2 mg (2 tablet), oral, 2 times daily, First dose on Wed03/05/23 at 1445, Bowel Regimen - for prevention of constipation Hold for loose stools 0840 (Given - Provider: Cole Nuñez RN)2121 (Given - Provider: Danny Middleton RN) 0900 (Not Given - Provider: Nadia Zee RN - Reason: Other - Comment: fx loose stool) topiramate (Topamax) tablet 50 mg 50 mg, oral, 2 times daily, First dose on Wed03/05/23 at 2100 0840 (Given - Provider: Cole Nuñez RN)2121 (Given - Provider: Danny Middleton RN) 0821 (Given - Provider: Nadia Zee, DEE)2000 (Given - Provider: Eileen Austin, DEE) 906 (Given - Provider: Nadia Zee RN)2100 (Due) Continuous Medication Order 03/08/2023 03/09/2023 03/10/2023 sodium chloride 0.45 % with KCl 20 mEq/L infusion 75 mL/hr, intravenous, Continuous, Starting on Wed03/07/23 at 1645 0230 (Rate/Dose Verify - Provider: Olga Paz, DEE)0852 (New Bag - Provider: Cole Nuñez, RN) 0145 (New Bag - Provider: Danny Middleton, RN)1954 (New Bag - Provider: Eileen Austin, RN) 0722 (New Bag - Provider: Eileen Austin, RN) PRN Medication Order 03/08/2023 03/09/2023 03/10/2023 [...] RN) 0356 (Given - Provider: Danny Middleton, RN)1012 (Given - Provider: Nadia Zee, DEE)1848 [...] Olga Paz RN)0410 (Given - Provider: Olga Paz, DEE)0637 (Given - Provider: Olga Paz RN)0840 (Given [...] Danny Middleton RN)2000 (Given - Provider: Eileen Austin, DEE) 43 (See Alternative - Provider: Eileen Austin, DEE) ondansetron (Zofran) tablet 4 mg(Linked Group 3) [...] Middleton RN)2000 (See Alternative - Provider: Eileen Austin, DEE) 43 (Given - Provider: Eileen Austin, DEE) oxyCODONE-acetaminophen (Percocet) 5-325 mg per tablet 1 tablet 1 tablet, oral, Every 4 hours PRN, pain moderate (4-6), second line, Starting on 03/08/23 at 1020, If [...] Danny Middleton RN)1102 (Given - Provider: Nadia Zee RN)1952 (Given - Provider: Eileen Austin RN) 0006 (Given - Provider: Eileen Austin RN)1312 [...] line, Starting on 03/06/23 at 1240, Give CT if patient is unable to take orally or receive by injection. 1119 (See Alternative - Provider: Cole Nuñez RN) 1622 (See Alternative - Provider: Nadia Zee RN) 0902 (See Alternative - Provider: Nadia Zee RN) prochlorperazine (Compazine) tablet 10 mg(Linked Group 4) 10 mg, oral, Every 6 hours PRN, nausea/vomiting, first line, Starting on Wed03/06/23 at 1240 1119 (Given - Provider: Cole [...] line, Starting on 03/06/[address] if patient is unable to take orally [...] Andie Lugo RN) 0839 (Given - Provider: Chrisitna Lazo RN) 08 (Given - Provider: Stacie [...] Wed03/17/23 at 0700 0609 (Given - Provider: Ntahalie Cmapos RN) 0657 (Given - Provider: Nathalie Campos [...] RN)2008 (Given - Provider: Nathalie Campos RN) 08 [...] 0619 (See Alternative - Provider: Nathalie Campos RN)450 (See Alternative - Provider: Nathalie Campos RN) [...] take orally. 1751 (Given - Provider: Christina Lazo, DEE) 0538 (Given - Provider: Nathalie Campos RN) morphine injection 2 mg 2 mg, intravenous, Every 4 hours PRN, pain moderate (4-6), first line, Starting on Wed03/18/23 at 0953 1006 (Given - Provider: Andie Lugo, DEE)1407 (Given - Provider: Andie Lugo, DEE)1814 (Given - Provider: Andie Lugo RN)2214 (Given [...] Schaffer RN) 1006 (Given - Provider: Tory Mcmullen RN)1500 (Due)2100 (Due) calcium gluconate in NS IV 2 g 2 g, intravenous, at 100 mL/hr, Administer over 1 Hours, Once, On Wed06/29/23 at 2035, For 1 dose escitalopram (Lexapro) tablet 20 mg 20 mg, oral, Daily, First dose on Wed06/30/23 at 0900 0914 (Given - Provider: Beatriz Dow RN) 0826 (Given - Provider: Mariah Herrera, DEE) 1012 (Given - Provider: Tory Mcmullen, DEE) famotidine (Pepcid) tablet 20 mg 20 mg, oral, 2 times daily, First dose on Wed06/30/23 at 2100 0919 (Given - Provider: Beatriz Dow, DEE)2239 (Given - Provider: Andrew Potts RN) 08 (Given - Provider: Mariah Herrera RN)213 (Given - Provider: Grecia Schaffer, DEE) 1007 (Given - Provider: Tory Mcmullen RN)2100 (Due) ferrous sulfate (325 mg ferrous sulfate) tablet 1 tablet 1 tablet, oral, Daily with breakfast, First dose on Wed07/01/23 at 0800 0916 (Given - Provider: Beatriz Dow RN) 0826 (Given - Provider: Mariah Herrera RN) 1006 (Given - Provider: Tory Mcmullen RN) heparin (porcine) injection 5,000 Units 5,000 Units, subcutaneous, Every 12 hours, First dose on Wed06/30/23 at 0900 0913 (Given - Provider: Beatriz Dow RN)2241 (Given - Provider: Andrew Potts RN) 0827 (Given - Provider: Mariah Herrera RN)213 (Given - Provider: Grecia Schaffer, DEE) 1012 (Given - Provider: Tory Mcmullen RN)2100 [...] 0605 (Given - Provider: Grecia Schaffer, DEE) methocarbamol (Robaxin) tablet 750 mg 750 mg, [...] Heena 07/01/23 at 1815, For 1 dose 1851 (Given [...] 2100 0923 (Given - Provider: Beatriz Dow RN)223 (Given - Provider: Andrew Potts RN - Comment: workflow) 09 (Not Given - Provider: Mariah Herrera RN - Reason: Patient/family refused)2099 (Not Given - Provider: Grecia Schaffer RN - Reason: Other) 09 (Not Given - Provider: Tory Mcmullen RN - Reason: Patient/family refused)2100 (Due) sodium bicarbonate 8.4 % (1 mEq/mL) [...] RN)223 (Given - Provider: Andrew Potts RN) 08 (Given - Provider: Mariah Herrera RN)213 (Given - Provider: Grecia Schaffer, DEE) 1007 (Given - Provider: Tory Mcmullen, DEE)2100 (Due) Continuous Medication Order 07/01/2023 07/02/2023 07/03/2023 [...] Herrera RN)2351 (Rate/Dose Verify - Provider: Grecia Schaffer, DEE) 0257 (Rate/Dose Verify - Provider: Grecia Schaffer, DEE)0536 (Rate/Dose Verify - Provider: Grecia Schaffer, RN)1000 (Stopped - Provider: Tory Mcmullen, DEE)1001 (New Bag - Provider: Tory Mcmullen RN) dextrose 10 % in water (D10W) infusion 75 mL/hr, intravenous, Continuous, Starting on Wed06/30/23 at 1945, Infuse only while clinimix is not running/infusing 0444 (Rate/Dose Verify - Provider: Mayda Balbuena LPN)1507 (Rate/Dose Verify - Provider: Beatriz Dow, DEE)1742 (Stopped - Provider: Beatriz Dow RN)2225 (New [...] at 1718 1531 (Given - Provider: Beatriz Dow RN) morphine injection 2 mg 2 mg, intravenous, Every 6 hours PRN, pain breakthrough, Starting on Wed07/02/23 at 1401 1835 (Given - Provider: Mariah Herrera RN) 0341 (Given - Provider: Grecia Schaffer RN)1007 (Given - Provider: Tory Mcmullen, RN) morphine injection 4 mg (CANCELED) 4 mg, intravenous, Every 4 hours PRN, pain severe (7-10), first line, Starting on Heena 07/01/23 at 2138 2300 (Given - Provider: Aliyah Galvan, RN) 0532 (Given - Provider: Aliyah Galvan RN)0942 (Given - Provider: Mariah Herrera RN)1345 [...] pain moderate (4-6), first line, Starting on 07/02/23 at 1401, If ordered PRN for pain, [...] pain severe (7-10), first line, Starting on 07/02/23 at 1401, If ordered PRN for pain, nurse is permitted to administer this medication for higher pain scores based on patient preference? Yes 1647 (Given - Provider: Mariah Herrera RN)2136 (Given - Provider: Grecia Schaffer, DEE) 0605 (Given - Provider: Grecia Schaffer RN)1145 [...] Team Status: Inactive Member Role Status Dates SIVAN MoralesC Primary Care Provider Active Start: May 30, 2023 End: May 31, 2023 Gabino Parker APRN Emergency Provider Active Start: May 30, 2023 End: May 31, 2023 Team Status: Active Member Role Status Dates Thomas Calix MD Primary Care Provider Active Start: July 17, 2023 LISA DicksonC Emergency Provider Active Start: July 17, 2023 Tahir Whitt MD Admit Provider, Attending Provider Active Start: July 17, 2023 Building Maintenance Engineer Relationship Specialty Start Date End Date Shanna June FNP [address] [place] [address] PCP - General Nurse Practitioner - Family 01/30/20 Building Maintenance Engineer Relationship Specialty Start Date End Date Shanna June CNP [address] [place] [address] PCP - General Family Practice 01/31/20 Antelmo Davey [address] [place] [phone] (Fax) 09/25/19 [place] [address] [place] [address] Consulting General Surgery 09/25/19 Shanna June CNP [address] [place] [address] Referring Family Practice 10/19/19 Building Maintenance Engineer Relationship Specialty Start Date End Date Shanna June CNP [address] [place] [address] PCP - General Family Practice 01/31/20 Antelmo Davey MD [address] [facility] [place] [address] (Fax) 09/25/[address] [place] [address] [facility] [place] [address] Consulting General Surgery 09/25/19 Shanna June CNP [address] [place] [address] Referring Family Practice 10/19/19 Building Maintenance Engineer Relationship Specialty Start Date End Date Shanna June CNP [address] [place] [address] PCP - General Family Practice 01/31/20 Antelmo Davey MD [address] [facility] [place] [address] (Fax) 09/25/[address] [place] [address] [facility] [place] [address] Consulting General Surgery 09/25/19 Shanna June CNP [address] [place] [address] Referring Family Practice 10/19/19 Building Maintenance Engineer Relationship Specialty Start Date End Date Shanna June CNP [address] [place] [address] PCP - General Family Practice 01/31/20 Antelmo Davey MD [address] [facility] [place] [address] (Fax) 09/25/19 [place] [address] [place] [address] Consulting General Surgery 09/25/19 Shanna June CNP [address] [place] [address] Referring Family Practice 10/19/19 Building Maintenance Engineer Relationship Specialty Start Date End Date Wally Foley [address] [place] [address] PCP - General Specialist 07/27/21 Building Maintenance Engineer Relationship Specialty Start Date End Date Shanna June CNP [address] [place] [address] PCP - General Family Practice 01/31/20 Antelmo Davey MD [address] [facility] [place] [address] (Fax) 09/25/19 [place] [address] [facility] [place] [address] Consulting General Surgery 09/25/19 Shanna June CNP [address] [place] [address] Referring Family Practice 10/19/19 Building Maintenance Engineer Relationship Specialty Start Date End Date Shanna June CNP [address] [place] [address] PCP - General Family Practice 01/31/20 Antelmo Davey MD [address] [facility] [place] [address] 09/25/[address] [place] [address] [facility] [place] [address] Consulting General Surgery 09/25/19 Shanna June CNP [address] [place] [address] Referring Family Practice 10/19/19 Building Maintenance Engineer Relationship Specialty Start Date End Date Shanna June CNP [address] [place] [address] PCP - General Family Practice 01/31/20 Antelmo Davey MD [address] [facility] [place] [address] (Fax) 09/25/19 [place] [address] [facility] [place] [address] Consulting General Surgery 09/25/19 Shanna June CNP [address] [place] [address] Referring Family Practice 10/19/19 Building Maintenance Engineer Relationship Specialty Start Date End Date Shanna June CNP [address] [place] [address] PCP - General Family Practice 01/31/20 Antelmo Davey MD [address] [facility] [place] [address] (Fax) 09/25/[address] [place] [address] [facility] [place] [address] Consulting General Surgery 09/25/19 Shanna JuneBETH [address] [place] [address] Referring Family Practice 10/19/19 Building Maintenance Engineer Relationship Specialty Start Date End Date Shanna June CNP [address] [place] [address] PCP - General Family Practice 01/31/20 Antelmo Davey MD [address] [facility] [place] [address] (Fax) 09/25/[address] [place] [address] [facility] [place] [address] Consulting General Surgery 09/25/19 Slade ShannaBETH tomlin [address] [place] [address] Referring Family Practice 10/19/19 Building Maintenance Engineer Relationship Specialty Start Date End Date Shanna June CNP [address] [place] [address] PCP - General Family Practice 01/31/20 Antelmo Davey MD [address] [place] [address] (Fax) 09/25/19 [place] [address] [place] [address] Consulting General Surgery 09/25/19 Shanna June CNP [address] [place] [address] Referring Family Practice 10/19/19 Building Maintenance Engineer Relationship Specialty Start Date End Date Wally Foley [address] [place] [address] PCP - General Specialist 07/27/21 Building Maintenance Engineer Relationship Specialty Start Date End Date Shanna June CNP [address] [place] [address] PCP - General Family Practice 01/31/20 Antelmo Davey MD [address] [place] [address] (Fax) 09/25/19 [place] [address] [place] [address] Consulting General Surgery 09/25/19 Shanna June CNP [address] [place] [address] Referring Family Practice 10/19/19 Building Maintenance Engineer Relationship Specialty Start Date End Date SladeDenverShannaBETH tomlin [address] [place] [address] PCP - General Family Practice 01/31/20 Antelmo Davey MD [address] [place] [address] (Fax) 09/25/19 [place] [address] [place] [address] Consulting General Surgery 09/25/19 Shanna June CNP [address] [place] [address] Referring Family Practice 10/19/19 Building Maintenance Engineer Relationship Specialty Start Date End Date Shanna June CNP [address] [place] [address] PCP - General Family Practice 01/31/20 Antelmo Davey MD [address] [place] [address] (Fax) 09/25/19 [place] [address] [place] [address] Consulting General Surgery 09/25/19 Shanna June CNP [address] [place] [address] Referring Family Practice 10/19/19 Building Maintenance Engineer Relationship Specialty Start Date End Date Shanna June CNP [address] [place] [address] PCP - General Family Practice 01/31/20 Antelmo Davey MD [address] [place] [address] (Fax) 09/25/19 [place] [address] [place] [address] Consulting General Surgery 09/25/19 Shanna June, BLASTING MACHINE OPERATOR [address] [place] [address] Referring Family Practice 10/19/19 Building Maintenance Engineer Relationship Specialty Start Date End Date Shanna June CNP [address] [place] [address] PCP - General Family Medicine 01/31/20 Antelmo Davey MD [address] [facility] [place] [address] (Fax) 09/25/19 [place] [address] [place] [address] Consulting General Surgery 09/25/19 Shanna June, BLASTING MACHINE OPERATOR [address] [place] [address] Referring Family Medicine 10/19/19 Building Maintenance Engineer Relationship Specialty Start Date End Date Shanna June CNP [address] [place] [address] PCP - General Family Medicine 01/31/20 Antelmo Davey MD [address] [facility] [place] [address] (Fax) 09/25/19 [place] [address] [place] [address] Consulting General Surgery 09/25/19 Shanna June, BLASTING MACHINE OPERATOR [address] [place] [address] Referring Family Medicine 10/19/19 Building Maintenance Engineer Relationship Specialty Start Date End Date Shanna June CNP [address] [place] [address] PCP - General Family Medicine 01/31/20 Antelmo Davey MD [address] [facility] [place] [address] (Fax) 09/25/19 [place] [address] [place] [address] Consulting General Surgery 09/25/19 Shanna June, BLASTING MACHINE OPERATOR [address] [place] [address] Referring Family Medicine 10/19/19 Building Maintenance Engineer Relationship Specialty Start Date End Date Shanna June CNP [address] [place] [address] PCP - General Family Medicine 01/31/20 Antelmo Davey MD [address] [facility] [place] [address] (Fax) 09/25/19 [place] [address] [place] [address] Consulting General Surgery 09/25/19 Shanna June, BLASTING MACHINE OPERATOR [address] [place] [address] Referring Family Medicine 10/19/19 Building Maintenance Engineer Relationship Specialty Start Date End Date Shanna June BLASTING MACHINE OPERATOR [address] [place] [address] PCP - General Family Medicine 01/31/20 Antelmo Davey MD [address] [place] [address] (Fax) 09/25/19 [place] [address] [place] [address] Consulting General Surgery 09/25/19 SladeShanna, BLASTING MACHINE OPERATOR [address] [place] [address] Referring Family Medicine 10/19/19 Building Maintenance Engineer Relationship Specialty Start Date End Date SladeShanna, BLASTING MACHINE OPERATOR [address] [place] [address] PCP - General Family Medicine 01/31/20 Antelmo Davey MD [address] [facility] [place] [address] (Fax) 09/25/[address] [place] [address] [facility] [place] [address] Consulting General Surgery 09/25/19 SladeShanna slater, BLASTING MACHINE OPERATOR [address] [place] [address] Referring Family Medicine 10/19/19 Building Maintenance Engineer Relationship Specialty Start Date End Date SladeDenyie, BLASTING MACHINE OPERATOR [address] [place] [address] PCP - General Family Medicine 01/31/20 Antelmo Davey MD [address] [facility] [place] [address] (Fax) 09/25/[address] [place] [address] [facility] [place] [address] Consulting General Surgery 09/25/19 Shanna June, BLASTING MACHINE OPERATOR [address] [place] [address] Referring Family Medicine 10/19/19 Building Maintenance Engineer Relationship Specialty Start Date End Date Shanna June CNP [address] [place] [address] PCP - General Family Medicine 01/31/20 Antelmo Davey MD [address] [facility] [place] [address] (Fax) 09/25/19 [place] [address] [place] [address] Consulting General Surgery 09/25/19 SladeDenyie, BLASTING MACHINE OPERATOR [address] [place] [address] Referring Family Medicine 10/19/19 Building Maintenance Engineer Relationship Specialty Start Date End Date Shanna June BLASTING MACHINE OPERATOR [address] [place] [address] PCP - General Family Medicine 01/31/20 Antelmo Davey MD [address] [facility] [place] [address] (Fax) 09/25/19 [place] [address] [place] [address] Consulting General Surgery 09/25/19 SladeDenyie, BLASTING MACHINE OPERATOR [address] [place] [address] Referring Family Medicine 10/19/19 Building Maintenance Engineer Relationship Specialty Start Date End Date SladeDenverShannaBETH tomlin [address] [place] [address] PCP - General Family Medicine 01/31/20 Antelmo Davey MD [address] [place] [address] (Fax) 09/25/19 [place] [address] [place] [address] Consulting General Surgery 09/25/19 Shanna June CNP [address] [place] [address] Referring Family Medicine 10/19/19 Building Maintenance Engineer Relationship Specialty Start Date End Date Shanna June CNP [address] [place] [address] PCP - General Family Medicine 01/31/20 Antelmo Davey MD [address] [facility] [place] [address] (Fax) 09/25/19 [place] [address] [place] [address] Consulting General Surgery 09/25/19 Shanna June CNP [address] [place] [address] Referring Family Medicine 10/19/19 Building Maintenance Engineer Relationship Specialty Start Date End Date Shanna June CNP [address] [place] [address] PCP - General Family Medicine 01/31/20 Antelmo Davey MD [address] [place] [address] (Fax) 09/25/19 [place] [address] [place] [address] Consulting General Surgery 09/25/19 Shanna June, BLASTING MACHINE OPERATOR [address] [place] [address] Referring Family Medicine 10/19/19 Building Maintenance Engineer Relationship Specialty Start Date End Date Wally Foley MD [address] [place] [address] PCP - General Family Medicine 01/19/22 Antelmo Davey MD [address] [place] [address] (Fax) 09/25/19 [place] [address] [place] [address] Consulting General Surgery 09/25/19 Shanna June, BLASTING MACHINE OPERATOR [address] [place] [address] Referring Family Medicine 10/19/19 Building Maintenance Engineer Relationship Specialty Start Date End Date Wally Foley MD [address] [place] [address] PCP - General Family Medicine 01/19/22 Antelmo Davey MD [address] [place] [place] [address] 09/25/19 [place] [address] [place] [address] Consulting General Surgery 09/25/19 Shanna June, BETH [address] [place] [address] Referring Family Medicine 10/19/19 Building Maintenance Engineer Relationship Specialty Start Date End Date Wally Foley MD [address] [facility] [address] PCP - General Family Medicine 01/19/22 Antelmo Davey MD [address] [facility] [place] [address] (Fax) 09/25/19 [place] [address] [place] [address] Consulting General Surgery 09/25/19 Shanna June, BETH [address] [place] [address] Referring Family Medicine 10/19/19 Building Maintenance Engineer Relationship Specialty Start Date End Date Wally Foley MD [address] [place] [address] PCP - General Family Medicine 01/19/22 Antelmo Davey MD [address] [facility] [place] [address] (Fax) 09/25/[address] [place] [address] [facility] [place] [address] Consulting General Surgery 09/25/19 Shanna June, BETH [address] [place] [address] Referring Family Medicine 10/19/19 Building Maintenance Engineer Relationship Specialty Start Date End Date Wally Foley MD [address] [place] [address] PCP - General Family Medicine 01/19/22 Antelmo Davey MD [address] [place] [address] (Fax) 09/25/19 [place] [address] [facility] [place] [address] Consulting General Surgery 09/25/19 Shanna June, BLASTING MACHINE OPERATOR [address] [place] [address] Referring Family Medicine 10/19/19 Building Maintenance Engineer Relationship Specialty Start Date End Date Wally Foley MD [address] [place] [address] PCP - General Family Medicine 01/19/22 Antelmo Davey MD [address] [place] [address] (Fax) 09/25/19 [place] [address] [place] [address] Consulting General Surgery 09/25/19 Shanna June, BLASTING MACHINE OPERATOR [address] [place] [address] Referring Family Medicine 10/19/19 Building Maintenance Engineer Relationship Specialty Start Date End Date Wally Foley MD [address] [place] [address] PCP - General Family Medicine 01/19/22 Antelmo Davey MD [address] [facility] [place] [address] (Fax) 09/25/19 [place] [address] [place] [address] Consulting General Surgery 09/25/19 Shanna June, BLASTING MACHINE OPERATOR [address] [place] [address] Referring Family Medicine 10/19/19 Building Maintenance Engineer Relationship Specialty Start Date End Date Wally Foley MD [address] [facility] [address] PCP - General Family Medicine 01/19/22 Antelmo Davey MD [address] [facility] [place] [address] (Fax) 09/25/[address] [place] [address] [facility] [place] [address] Consulting General Surgery 09/25/19 Shanna June, BLASTING MACHINE OPERATOR [address] [place] [address] Referring Family Medicine 10/19/19 Building Maintenance Engineer Relationship Specialty Start Date End Date Wally Foley MD [address] [facility] [address] PCP - General Family Medicine 01/19/22 Antelmo Davey MD [address] [facility] [place] [address] (Fax) 09/25/19 [place] [address] [place] [address] Consulting General Surgery 09/25/19 Shanna June, BLASTING MACHINE OPERATOR [address] [place] [address] Referring Family Medicine 10/19/19 Building Maintenance Engineer Relationship Specialty Start Date End Date Wally Foley MD [address] [facility] [address] PCP - General Family Medicine 01/19/22 Antelmo Davey MD [address] [facility] [place] [address] (Fax) 09/25/[address] [place] [address] [facility] [place] [address] Consulting General Surgery 09/25/19 Shanna June, BLASTING MACHINE OPERATOR [address] [place] [address] Referring Family Medicine 10/19/19 Building Maintenance Engineer Relationship Specialty Start Date End Date Wally Foley MD [address] [facility] [address] PCP - General Family Medicine 01/19/22 Antelmo Davey MD [address] [facility] [place] [address] (Fax) 09/25/[address] [place] [address] [facility] [place] [address] Consulting General Surgery 09/25/19 Shanna June, BLASTING MACHINE OPERATOR [address] [place] [address] Referring Family Medicine 10/19/19 Building Maintenance Engineer Relationship Specialty Start Date End Date Wally Foley MD [address] [place] [address] PCP - General Family Medicine 01/19/22 Antelmo Davey MD [address] [place] [address] 09/25/[address] [place] [address] [facility] [place] [address] Consulting General Surgery 09/25/19 Shanna June, BLASTING MACHINE OPERATOR [address] [place] [address] Referring Family Medicine 10/19/19 Agustin Valentino [address] [facility] 150 [place] [address] Referring Family Medicine 05/13/22 Building Maintenance Engineer Relationship Specialty Start Date End Date Jaquan Morrow [address] [place] [address] PCP - General 06/16/22 Antelmo Davey MD [address] [place] [address] 09/25/19 [place] [address] [place] [address] Consulting General Surgery 09/25/19 Shanna June, BLASTING MACHINE OPERATOR [address] [place] [address] Referring Family Medicine 10/19/19 Agustin Valentino [address] [facility] 150 [place] [address] Referring Family Medicine 05/13/22 Building Maintenance Engineer Relationship Specialty Start Date End Date CristhianJaquan hendricks [address] [place] [address] PCP - General 06/16/22 Antelmo Davey MD [address] [place] [address] (Fax) 09/25/19 [place] [address] [facility] [place] [address] Consulting General Surgery 09/25/19 Shanna June, BLASTING MACHINE OPERATOR [address] [place] [address] Referring Family Medicine 10/19/19 Agustin Valentino [address] [place] [address] Referring Family Medicine 05/13/22 Building Maintenance Engineer Relationship Specialty Start Date End Date Jaquan Morrow [address] [place] [address] PCP - General 06/16/22 Antelmo Davey MD [address] [place] [address] (Fax) 09/25/[address] [place] [address] [facility] [place] [address] Consulting General Surgery 09/25/19 Shanna June, BLASTING MACHINE OPERATOR [address] [place] [address] Referring Family Medicine 10/19/19 Agustin Valentino [address] [place] [address] Referring Family Medicine 05/13/22 Building Maintenance Engineer Relationship Specialty Start Date End Date Jaquan Morrow [address] [place] [address] PCP - General 06/16/22 Antelmo Davey MD [address] [place] [address] (Fax) 09/25/[address] [place] [address] [facility] [place] [address] Consulting General Surgery 09/25/19 Shanna June, BLASTING MACHINE OPERATOR [address] [place] [address] Referring Family Medicine 10/19/19 Agustin Valentino [address] [place] [address] Referring Family Medicine 05/13/22 Building Maintenance Engineer Relationship Specialty Start Date End Date Jaquan Morrow [address] [place] [address] PCP - General 06/16/22 Antelmo Davey MD [address] [place] [address] (Fax) 09/25/[address] [place] [address] [facility] [place] [address] Consulting General Surgery 09/25/19 Shanna June, BLASTING MACHINE OPERATOR [address] [place] [address] Referring Family Medicine 10/19/19 Agustin Valentino [address] [place] [facility] 150 [place] [address] Referring Family Medicine 05/13/22 Building Maintenance Engineer Relationship Specialty Start Date End Date Jaquan Morrow [address] [place] [address] PCP - General 06/16/22 Antelmo Davey MD [address] [place] [address] (Fax) 09/25/[address] [place] [address] [facility] [place] [address] Consulting General Surgery 09/25/19 Shanna June, BLASTING MACHINE OPERATOR [address] [place] [address] Referring Family Medicine 10/19/19 Agustin Valentino [address] [place] [address] [place] [address] Referring Family Medicine 05/13/22 Building Maintenance Engineer Relationship Specialty Start Date End Date Jaquan Morrow [address] [place] [address] PCP - General 06/16/22 Antelmo Davey MD [address] [place] [address] (Fax) 09/25/19 [place] [address] [place] [address] Consulting General Surgery 09/25/19 Shanna June, BLASTING MACHINE OPERATOR [address] [place] [address] Referring Family Medicine 10/19/19 Agustin Valentino [address] [place] [facility] 150 [place] [address] Referring Family Medicine 05/13/22 Building Maintenance Engineer Relationship Specialty Start Date End Date Jaquan Morrow [address] [place] [address] PCP - General 06/16/22 Antelmo Davey MD [address] [place] [address] (Fax) 09/25/19 [place] [address] [place] [address] Consulting General Surgery 09/25/19 Shanna June, BETH [address] [place] [address] Referring Family Medicine 10/19/19 Agustin Valentino [address] [place] [address] [place] [address] Referring Family Medicine 05/13/22 Building Maintenance Engineer Relationship Specialty Start Date End Date Jaquan Morrow [address] [place] [address] PCP - General 06/16/22 Antelmo Davey MD [address] [place] [address] (Fax) 09/25/19 [place] [address] [place] [address] Consulting General Surgery 09/25/19 Shanna June, BLASTING MACHINE OPERATOR [address] [place] [address] Referring Family Medicine 10/19/19 Agustin Valentino [address] [facility] 150 [place] [address] Referring Family Medicine 05/13/22 Building Maintenance Engineer Relationship Specialty Start Date End Date Jaquan Morrow [address] [place] [address] PCP - General 06/16/22 Antelmo Davey MD [address] [place] [address] (Fax) 09/25/19 [place] [address] [place] [address] Consulting General Surgery 09/25/19 Shanna June CNP [address] [place] [address] Referring Family Medicine 10/19/19 Agustin Valentino [address] [place] [facility] 150 [place] [address] Referring Family Medicine 05/13/22 Building Maintenance Engineer Relationship Specialty Start Date End Date Jaquan Morrow [address] [place] [address] PCP - General 06/16/22 Antelmo Davey MD [address] [place] [address] (Fax) 09/25/19 [place] [address] [place] [address] Consulting General Surgery 09/25/19 Shanna June, BETH [address] [place] [address] Referring Family Medicine 10/19/19 Agustin Valentino [address] [facility] 150 [place] [address] Referring Family Medicine 05/13/22 Building Maintenance Engineer Relationship Specialty Start Date End Date Jaquan Morrow [address] [place] [address] PCP - General 06/16/22 Antelmo Davey MD [address] [place] [address] 09/25/19 [place] [address] [place] [address] Consulting General Surgery 09/25/19 Shanna June, BETH [address] [place] [address] Referring Family Medicine 10/19/19 Agustin Valentino [address] [place] [address] [place] [address] Referring Family Medicine 05/13/22 Building Maintenance Engineer Relationship Specialty Start Date End Date Jaquan Morrow [address] [place] [address] PCP - General 06/16/22 Antelmo Davey MD [address] [place] [address] 09/25/19 [place] [address] [place] [address] Consulting General Surgery 09/25/19 Shanna June, BLASTING MACHINE OPERATOR [address] [place] [address] Referring Family Medicine 10/19/19 Agustin Valentino PA [address] [place] [address] Referring Family Medicine 05/13/22 Building Maintenance Engineer Relationship Specialty Start Date End Date Jaquan Morrow [address] [place] [address] PCP - General 06/16/22 Antelmo Davey MD [address] [place] [address] 09/25/19 [place] [address] [place] [address] Consulting General Surgery 09/25/19 Shanna June, BETH [address] [place] [address] Referring Family Medicine 10/19/19 Agustin Valentino PA [address] [address] Referring Family Medicine 05/13/22 Building Maintenance Engineer Relationship Specialty Start Date End Date Wally Foley [address] [facility] [place] [address] PCP - General Specialist 07/27/21 Building Maintenance Engineer Relationship Specialty Start Date End Date Shanna June FNP [address] [facility] [place] [address] PCP - General Nurse Practitioner - Family 01/30/20 Building Maintenance Engineer Relationship Specialty Start Date End Date Jaquan Morrow [address] [place] [address] PCP - General 06/16/22 Antelmo Davey MD [address] [facility] [place] [address] 09/25/19 [place] [address] [place] [address] Consulting General Surgery 09/25/19 Shanna June CNP [address] [place] [address] Referring Family Medicine 10/19/19 Agustin Valentino PA [address] [place] [address] [place] [address] Referring Family Medicine 05/13/22 Building Maintenance Engineer Relationship Specialty Start Date End Date Jaquan Morrow [address] [place] [address] PCP - General 06/16/22 Antelmo Davey MD [address] [facility] [place] [address] 09/25/19 [place] [address] [place] [address] Consulting General Surgery 09/25/19 Shanna June CNP [address] [place] [address] Referring Family Medicine 10/19/19 Agustin Valentino PA [address] [facility] 150 [place] [address] Referring Family Medicine 05/13/22 Building Maintenance Engineer Relationship Specialty Start Date End Date Jaquan Morrow [address] [place] [address] PCP - General 06/16/22 Antelmo Davey MD [address] [place] [address] 09/25/19 [place] [address] [place] [address] Consulting General Surgery 09/25/19 Shanna June, BETH [address] [place] [address] Referring Family Medicine 10/19/19 Agustin Valentino PA [address] [facility] [place] [address] Referring Family Medicine 05/13/22 Building Maintenance Engineer Relationship Specialty Start Date End Date Jaquan Morrow [address] [place] [address] PCP - General 06/16/22 Antelmo Davey MD [address] [place] [address] 09/25/19 [place] [address] [place] [address] Consulting General Surgery 09/25/19 Shanna June, BLASTING MACHINE OPERATOR [address] [place] [address] Referring Family Medicine 10/19/19 Agustin Valentino PA [address] [place] [address] Referring Family Medicine 05/13/22 Building Maintenance Engineer Relationship Specialty Start Date End Date Jaquan Mororw [address] [place] [address] PCP - General 06/16/22 Antelmo Davey MD [address] [place] [address] (Fax) 09/25/19 [place] [address] [place] [address] Consulting General Surgery 09/25/19 Shanna June, BLASTING MACHINE OPERATOR [address] [place] [address] Referring Family Medicine 10/19/19 Agustin Valentino PA [address] [place] [address] Referring Family Medicine 05/13/22 Building Maintenance Engineer Relationship Specialty Start Date End Date Jaquan Morrow [address] [place] [address] PCP - General 06/16/22 Antelmo Davey MD [address] [place] [address] (Fax) 09/25/19 [place] [address] [place] [address] Consulting General Surgery 09/25/19 Shanna June CNP [address] [place] [address] Referring Family Medicine 10/19/19 Agustin Valentino PA [address] [facility] [place] [address] Referring Family Medicine 05/13/22 Building Maintenance Engineer Relationship Specialty Start Date End Date Jaquan Morrow [address] [place] [address] PCP - General 06/16/22 Antelmo Davey MD [address] [place] [address] (Fax) 09/25/19 [place] [address] [place] [address] Consulting General Surgery 09/25/19 Shanna June CNP [address] [place] [address] Referring Family Medicine 10/19/19 Agustin Valentino PA [address] [facility] 150 [place] [address] Referring Family Medicine 05/13/22 Building Maintenance Engineer Relationship Specialty Start Date End Date Jaquan Morrow [address] [place] [address] PCP - General 06/16/22 Antelmo Davey MD [address] [place] [address] (Fax) 09/25/19 [place] [address] [place] [address] Consulting General Surgery 09/25/19 Shanna June CNP [address] [place] [address] Referring Family Medicine 10/19/19 Agustin Valentino PA [address] [facility] [place] [address] Referring Family Medicine 05/13/22 Building Maintenance Engineer Relationship Specialty Start Date End Date Jaquan Morrow [address] [place] [address] PCP - General 06/16/22 Antelmo Davey MD [address] [place] [address] (Fax) 09/25/19 [place] [address] [place] [address] Consulting General Surgery 09/25/19 Shanna June, BETH [address] [place] [address] Referring Family Medicine 10/19/19 Agustin Valentino PA [address] [facility] 150 [place] [address] Referring Family Medicine 05/13/22 Building Maintenance Engineer Relationship Specialty Start Date End Date Jaquan Morrow [address] [place] [address] PCP - General 06/16/22 [facility] dickson MD [address] [place] [address] 09/25/19 [place] [address] [place] [address] Consulting General Surgery 09/25/19 Shanna June, BLASTING MACHINE OPERATOR [address] [place] [address] Referring Family Medicine 10/19/19 Agustin Valentino PA [address] [facility] 150 [place] [address] Referring Family Medicine 05/13/22 Building Maintenance Engineer Relationship Specialty Start Date End Date Jaquan Morrow [address] [place] [address] PCP - General 06/16/22 Antelmo Davey MD [address] [place] [address] (Fax) 09/25/19 [place] [address] [place] [address] Consulting General Surgery 09/25/19 Shanna June, BETH [address] [place] [address] Referring Family Medicine 10/19/19 Agustin Valentino PA [address] [place] [address] Referring Family Medicine 05/13/22 Building Maintenance Engineer Relationship Specialty Start Date End Date Jaquan Morrow [address] [place] [address] PCP - General 06/16/22 Antelmo Davey MD [address] [place] [address] (Fax) 09/25/19 [place] [address] [place] [address] Consulting General Surgery 09/25/19 Shanna June, BLASTING MACHINE OPERATOR [address] [place] [address] Referring Family Medicine 10/19/19 Agustin Valentino, PA [address] [facility] 150 [place] [address] Referring Family Medicine 05/13/22 Building Maintenance Engineer Relationship Specialty Start Date End Date Linda Morrowdi [address] [place] [address] PCP - General 06/16/22 Antelmo Davey MD [address] [place] [address] (Fax) 09/25/19 [place] [address] [place] [address] Consulting General Surgery 09/25/19 Shanna Juen, BETH [address] [place] [address] Referring Family Medicine 10/19/19 Agustin Valentino PA [address] [place] [address] [place] [address] Referring Family Medicine 05/13/22 Building Maintenance Engineer Relationship Specialty Start Date End Date Jaquan Morrow [address] [place] [address] PCP - General 06/16/22 Antelmo Davey MD [address] [place] [address] (Fax) 09/25/19 [place] [address] [place] [address] Consulting General Surgery 09/25/19 Shanna June, BLASTING MACHINE OPERATOR [address] [place] [address] Referring Family Medicine 10/19/19 Agustin Valentino PA [address] [place] [address] [place] [address] Referring Family Medicine 05/13/22 Building Maintenance Engineer Relationship Specialty Start Date End Date Jaquan Morrow [address] [place] [address] PCP - General 06/16/22 Antelmo Davey MD [address] [place] [address] (Fax) 09/25/19 [place] [address] [place] [address] Consulting General Surgery 09/25/19 Shanna June CNP [address] [place] [address] Referring Family Medicine 10/19/19 Agustin Valentino PA [address] [facility] [place] [place] [address] Referring Family Medicine 05/13/22 Building Maintenance Engineer Relationship Specialty Start Date End Date Jaquan Morrow [address] [place] [address] PCP - General 06/16/22 Antelmo Davey MD [address] [place] [address] (Fax) 09/25/19 [place] [address] [place] [address] Consulting General Surgery 09/25/19 Shanna June CNP [address] [place] [address] Referring Family Medicine 10/19/19 Agustin Valentino PA [address] [facility] 150 [place] [address] Referring Family Medicine 05/13/22 Building Maintenance Engineer Relationship Specialty Start Date End Date Jqauan Morrow [address] [place] [address] PCP - General 06/16/22 Antelmo Davey MD [address] [place] [address] (Fax) 09/25/19 [place] [address] [place] [address] Consulting General Surgery 09/25/19 Shanna June, BETH [address] [place] [address] Referring Family Medicine 10/19/19 Agustin Valentino PA [address] [place] [address] [place] [address] Referring Family Medicine 05/13/22 Building Maintenance Engineer Relationship Specialty Start Date End Date Jaquan Morrow [address] [place] [address] PCP - General 06/16/22 Antelmo Davey MD [address] [place] [address] (Fax) 09/25/19 [place] [address] [place] [address] Consulting General Surgery 09/25/19 Shanna June, BLASTING MACHINE OPERATOR [address] [place] [address] Referring Family Medicine 10/19/19 Agustin Valentino PA [address] [facility] 150 [place] [address] Referring Family Medicine 05/13/22 Building Maintenance Engineer Relationship Specialty Start Date End Date Jaquan Morrow [address] [place] [address] PCP - General 06/16/22 Antelmo Davey MD [address] [place] [address] (Fax) 09/25/19 [place] [address] [place] [address] Consulting General Surgery 09/25/19 Shanna June, BLASTING MACHINE OPERATOR [address] [place] [address] Referring Family Medicine 10/19/19 Agustin Valentino, PA [address] [address] Referring Family Medicine 05/13/22 Building Maintenance Engineer Relationship Specialty Start Date End Date Jaquan Morrow [address] [place] [address] PCP - General 06/16/22 Antelmo Davey MD [address] [place] [address] 09/25/[address] [place] [address] [facility] [place], [place] [address] Consulting General Surgery 09/25/19 Shanna uJne CNP [address] [place] [address] Referring Family Medicine 10/19/19 Agustin Valentino PA [address] [address] Referring Family Medicine 05/13/22 Building Maintenance Engineer Relationship Specialty Start Date End Date Jaquan Morrow APRN.BLASTING MACHINE OPERATOR [address] [place] [address] PCP - General 06/16/22 Antelmo Davey MD [address] [place] [address] 09/25/19 [place] [address] [place] [address] Consulting General Surgery 09/25/19 Slade Shanna, BETH [address] [place] [address] Referring Family Medicine 10/19/19 Agustin Valentino PA [address] [facility] 150 [place] [address] Referring Family Medicine 05/13/22 Building Maintenance Engineer Relationship Specialty Start Date End Date Jaquan Morrow, ENGINEERING SCIENTIST.BLASTING MACHINE OPERATOR [address] [place] [address] PCP - General 06/16/22 Antelmo Davey MD [address] [place] [address] 09/25/19 [place] [address] [place] [address] Consulting General Surgery 09/25/19 SladeShanna, BETH [address] [place] [address] Referring Family Medicine 10/19/19 Agustin Valentino PA [address] [place] [address] [place] [address] Referring Family Medicine 05/13/22 Building Maintenance Engineer Relationship Specialty Start Date End Date Jaquan Morrow, ENGINEERING SCIENTIST.BLASTING MACHINE OPERATOR [address] [place] [address] PCP - General 06/16/22 Antelmo Davey MD [address] [place] [address] 09/25/19 [place] [address] [place] [address] Consulting General Surgery 09/25/19 Shanna June, BETH [address] [place] [address] Referring Family Medicine 10/19/19 Agustin Valentino PA [address] [place] [address] Referring Family Medicine 05/13/22 Building Maintenance Engineer Relationship Specialty Start Date End Date Jaquan Morrow, ENGINEERING SCIENTIST.BLASTING MACHINE OPERATOR [address] [place] [address] PCP - General 06/16/22 Antelmo Davey MD [address] [place] [address] 09/25/19 [place] [address] [place] [address] Consulting General Surgery 09/25/19 Shanna June CNP [address] [place] [address] Referring Family Medicine 10/19/19 Agustin Valentino PA [address] [address] Referring Family Medicine 05/13/22 Building Maintenance Engineer Relationship Specialty Start Date End Date Jaquan Morrow APRN.BLASTING MACHINE OPERATOR [address] [place] [address] PCP - General 06/16/22 Antelmo Davey MD [address] [place] [address] 09/25/19 [place] [address] [place] [address] Consulting General Surgery 09/25/19 Shanna June CNP [address] [place] [address] Referring Family Medicine 10/19/19 Agustin Valentino PA [address] [place] [address] [place] [address] Referring Family Medicine 05/13/22 Team Status: Active Member Role Status Dates Jaquan Morrow CURTAIN INSPECTOR-C Primary Care Provider Active Team Status: Inactive Member Role Status Dates Jaquan Morrow CURTAIN INSPECTOR-C Primary Care Provider Active Claus Obrien DO Emergency Provider Active Roseline Mejia DO RES Active Building Maintenance Engineer Relationship Specialty Start Date End Date Generic Provider, No Assigned [facility]cp[facility] [address] [place] [address] PCP - General Family Medicine 01/02/23 Building Maintenance Engineer Relationship Specialty Start Date End Date Generic Provider, No Assigned [facility]cp[facility] [address] [place] [address] PCP - General Family Medicine 01/02/23 Team Status: Inactive Member Role Status Dates Jaquan Morrow CURTAIN INSPECTOR-C Primary Care Provider Active Start: February 13, 2023 End: February 13, 2023 Claus Obrien DO Emergency Provider Active Start: February 13, 2023 End: February 13, 2023 Roselinenila Mejia DO RES Active Start : February 13, 2023 End: February 13, 2023 Team Status: Inactive Member Role Status Dates PAO Morales Primary Care Provider Active Start: April 06, 2023 End: April 06, 2023 Trace Lowery [facility]- Emergency Provider Active Start: April 06, 2023 End: April 06, 2023 Building Maintenance Engineer Relationship Specialty Start Date End Date Generic Provider, No Assigned [facility]cp[facility] [address] [place] [address] PCP - General Family Medicine 01/02/23 Building Maintenance Engineer Relationship Specialty Start Date End Date Jaquan Morrow APRN.BLASTING MACHINE OPERATOR [address] [place] [address] PCP - General 06/16/22 Antelmo Davey MD [address] [place] [address] 09/25/19 [place] [address] [place] [address] Consulting General Surgery 09/25/19 Shanna June CNP [address] [place] [address] Referring Family Medicine 10/19/19 Agustin Valentino PA [address] [address] [place] [address] Referring Family Medicine 05/13/22 Building Maintenance Engineer Relationship Specialty Start Date End Date Generic Provider, No Assigned [facility]cp[facility] [address] [place] [address] PCP - General Family Medicine 01/02/23 Building Maintenance Engineer Relationship Specialty Start Date End Date Jaquan Morrow APRN.BLASTING MACHINE OPERATOR [address] [place] [address] PCP - General 06/16/22 Antelmo Davey MD [address] [place] [address] (Fax) 09/25/19 [place] [address] [place] [address] Consulting General Surgery 09/25/19 Shanna June, BETH [address] [place] [address] Referring Family Medicine 10/19/19 Agustin Valentino PA [address] [place] [address] Referring Family Medicine 05/13/22 Building Maintenance Engineer Relationship Specialty Start Date End Date Jaquan Morrow, ENGINEERING SCIENTIST.BLASTING MACHINE OPERATOR [address] [place] [address] PCP - General 06/16/22 Antelmo Davey MD [address] [place] [address] 09/25/19 [place] [address] [place] [address] Consulting General Surgery 09/25/19 Shanna June CNP [address] [place] [address] Referring Family Medicine 10/19/19 Agustin Valentino PA [address] [facility] [address] [place] [address] Referring Family Medicine 05/13/22 Building Maintenance Engineer Relationship Specialty Start Date End Date Jaquan Morrow, ENGINEERING SCIENTIST.BLASTING MACHINE OPERATOR [address] [place] [address] PCP - General 06/16/22 Antelmo Davey MD [address] [place] [phone] (Fax) 09/25/19 [place] [address] [place] [address] Consulting General Surgery 09/25/19 Shanna June, BETH [address] [place] [address] Referring Family Medicine 10/19/19 Agustin Valentino PA [address] [place] [address] Referring Family Medicine 05/13/22 Building Maintenance Engineer Relationship Specialty Start Date End Date Jaquan Morrow, ENGINEERING SCIENTIST.BLASTING MACHINE OPERATOR [address] [place] [address] PCP - General 06/16/22 Antelmo Davey MD [address] [facility] [place] [phone] (Fax) 09/25/19 [place] [address] [place] [address] Consulting General Surgery 09/25/19 Shanna June CNP [address] [place] [address] Referring Family Medicine 10/19/19 Agustin Valentino PA [address] [facility] [address] [place] [address] Referring Family Medicine 05/13/22 Building Maintenance Engineer Relationship Specialty Start Date End Date Jaquan Morrow, ENGINEERING SCIENTIST.BLASTING MACHINE OPERATOR [address] [place] [address] PCP - General 06/16/22 Antelmo Davey MD [address] [place] [address] 09/25/19 [place] [address] [place] [address] Consulting General Surgery 09/25/19 Shanna June, BETH [address] [place] [address] Referring Family Medicine 10/19/19 Agustin Valentino PA [address] [facility] [address] [place] [address] Referring Family Medicine 05/13/22 Building Maintenance Engineer Relationship Specialty Start Date End Date Generic Provider, No Assigned PcpMD PCP - General Family Medicine 01/02/23 Building Maintenance Engineer Relationship Specialty Start Date End Date Jaquan Morrow, ENGINEERING SCIENTIST.BLASTING MACHINE OPERATOR [address] [place] [address] PCP - General 06/16/22 Antelmo Davey MD [address] [place] [address] (Fax) 09/25/19 [place] [address] [place] [address] Consulting General Surgery 09/25/19 Shanna June, BETH [address] [place] [address] Referring Family Medicine 10/19/19 Agustin Valentino PA [address] [place] [address] Referring Family Medicine 05/13/22 Building Maintenance Engineer Relationship Specialty Start Date End Date Generic Provider, No [place] [address] PCP - General Test Hole Driller 06/29/23 Building Maintenance Engineer Relationship Specialty Start Date End Date Generic Provider, No [place] [address] PCP - General Test Hole Driller 06/29/23 Building Maintenance Engineer Relationship Specialty Start Date End Date Jaquan Morrow, ENGINEERING SCIENTIST.BLASTING MACHINE OPERATOR [address] [place] [address] PCP - General 06/16/22 Antelmo Davey MD [address] [facility] [place] [address] 09/25/19 [place] [address] [place] [address] Consulting General Surgery 09/25/19 Shanna June CNP [address] [place] [address] Referring Family Medicine 10/19/19 Agustin Valentino PA [address] [facility] [address] [place] [address] Referring Family Medicine 05/13/22 Building Maintenance Engineer Relationship Specialty Start Date End Date Jaquan Morrow, ENGINEERING SCIENTIST.BLASTING MACHINE OPERATOR [address] [place] [address] PCP - General 06/16/22 Antelmo Davey MD [address] [place] [address] (Fax) 09/25/19 [place] [address] [place] [address] Consulting General Surgery 09/25/19 Shanna June CNP [address] [place] [address] Referring Family Medicine 10/19/19 Agustin Valentino PA [address] [address] [place] [address] Referring Family Medicine 05/13/22 Building Maintenance Engineer Relationship Specialty Start Date End Date Jaquan Morrow, ENGINEERING SCIENTIST.BLASTING MACHINE OPERATOR [address] [place] [address] PCP - General 06/16/22 Antelmo Davey MD [address] [place] [address] (Fax) 09/25/19 [place] [address] [place] [address] Consulting General Surgery 09/25/19 Shanna June CNP [address] [place] [address] Referring Family Medicine 10/19/19 Agustin Valentino PA [address] [place] [address] Referring Family Medicine 05/13/22 Building Maintenance Engineer Relationship Specialty Start Date End Date Jaquan Morrow, ENGINEERING SCIENTIST.BLASTING MACHINE OPERATOR [address] [place] [address] PCP - General 06/16/22 Antelmo Davey MD [address] [place] [address] 09/25/19 [place] [address] [place] [address] Consulting General Surgery 09/25/19 Shanna June CNP [address] [place] [address] Referring Family Medicine 10/19/19 Agustin Valentino PA [address] [facility] 150 [place] [address] Referring Family Medicine 05/13/22 Building Maintenance Engineer Relationship Specialty Start Date End Date Jaquan Morrow, ENGINEERING SCIENTIST.BLASTING MACHINE OPERATOR [address] [place] [address] PCP - General 06/16/22 Antelmo Davey MD [address] [place] [address] 09/25/19 [place] [address] [place] [address] Consulting General Surgery 09/25/19 Shanna June CNP [address] [place] [address] Referring Family Medicine 10/19/19 Agustin Valentino PA [address] [address] Referring Family Medicine 05/13/22 Team Status: Inactive [...] July 17, 2023 End: July 17, 2023 Building Maintenance Engineer Relationship Specialty Start Date End Date Jaquan Morrow, ENGINEERING SCIENTIST.BLASTING MACHINE OPERATOR [address] [place] [address] PCP - General 06/16/22 Antelmo Davey MD [address] [place] [address] 09/25/19 [place] [address] [place] [address] Consulting General Surgery 09/25/19 Shanna June, BETH [address] [place] [address] Referring Family Medicine 10/19/19 Agustin Valentino PA [address] [place] [address] Referring Family Medicine 05/13/22 Team Status: Inactive Member Role Status Dates Thomas Calix MD Primary Care Provider Active Start: July 31, 2023 End: July 31, 2023 Jeramy Cunningham DO Emergency Provider Active Sta rt: July 31, 2023 End: July 31, 2023 Building Maintenance Engineer Relationship Specialty Start Date End Date Thomas Calix MD [address] [place] [address] PCP - General Family Medicine 07/30/23 Antelmo Davey MD [address] [place] [address] 09/25/[address] [place] [address] [facility] [place] [address] Consulting General Surgery 09/25/19 Shanna June, BETH [address] [place] [address] Referring Family Medicine 10/19/19 Agustin Valentino PA [address] [address] [place] [address] Referring Family Medicine 05/13/22 Building Maintenance Engineer Relationship Specialty Start Date End Date Thomas Calix MD [address] [place] [address] PCP - General Family Medicine 07/30/23 Antelmo Davey MD [address] [place] [address] 09/25/19 [place] [address] [place] [address] Consulting General Surgery 09/25/19 Shanna June CNP [address] [place] [address] Referring Family Medicine 10/19/19 Agustin Valentino PA [address] [place] [address] Referring Family Medicine 05/13/22 Building Maintenance Engineer Relationship Specialty Start Date End Date Thomas Calix MD [address] [place] [address] PCP - General Family Medicine 07/30/23 Antelmo Davey MD [address] [place] [address] (Fax) 09/25/19 [place] [address] [place] [address] Consulting General Surgery 09/25/19 Shanna June CNP [address] [place] [address] Referring Family Medicine 10/19/19 Agustin Valentino PA [address] [facility] [address] [place] [address] Referring Family Medicine 05/13/22 Building Maintenance Engineer Relationship Specialty Start Date End Date Thomas Calix MD [address] [facility] [place] [address] PCP - General Family Medicine 07/30/23 Antelmo Davey MD [address] [place] [address] 09/25/19 [place] [address] [place] [address] Consulting General Surgery 09/25/19 Shanna June CNP [address] [place] [address] Referring Family Medicine 10/19/19 Agustin Valentino PA [address] [facility] [address] [place] [address] Referring Family Medicine 05/13/22 Building Maintenance Engineer Relationship Specialty Start Date End Date Thomas Calix MD [address] [place] [address] PCP - General Family Medicine 07/30/23 Antelmo Davey MD [address] [place] [address] (Fax) 09/25/19 [place] [address] [place] [address] Consulting General Surgery 09/25/19 Shanna June CNP [address] [place] [address] Referring Family Medicine 10/19/19 Agustin Valentino PA [address] [place] [address] Referring Family Medicine 05/13/22 Building Maintenance Engineer Relationship Specialty Start Date End Date Thomas Calix MD [address] [place] [address] PCP - General Family Medicine 07/30/23 Antelmo Davey MD [address] [place] [address] (Fax) 09/25/19 [place] [address] [place] [address] Consulting General Surgery 09/25/19 Shanna June CNP [address] [place] [address] Referring Family Medicine 10/19/19 Agustin Valentino PA [address] [address] [place] [address] Referring Family Medicine 05/13/22 Team Status: Inactive Member Role Status Dates Thomas Calix MD Primary Care Provider Active Start: August 14, 2023 End: August 14, 2023 Shaan Sabillon PA-C Emergency Provider Active Start: August 14, 2023 End: August 14, 2023 Team Status: Inactive Member Role Status Dates Thomas Calix MD Primary Care Provider Active Start: August 21, 2023 End: August 21, 2023 Claus Obrien DO Emergency Provider Active Start: August 21, 2023 End: August 21, 2023 Keven Dominguez DO RES Active Start: August 21, 2023 End: August 21, 2023 Building Maintenance Engineer Relationship Specialty Start Date End Thomas Calix MD [address] [place] [address] PCP - General Family Medicine 07/30/23 Atnelmo Davey MD [address] [place] [address] 09/25/19 [place] [address] [place] [address] Consulting General Surgery 09/25/19 Shanna June CNP [address] [place] [address] Referring Family Medicine 10/19/19 Agustin Valentino PA [address] [facility] 150 [place] [address] Referring Family Medicine 05/13/22 Building Maintenance Engineer Relationship Specialty Start Date End Date Thomas Calix MD [address] [place] [address] PCP - General Family Medicine 07/30/23 Antelmo Davey MD [address] [place] [address] (Fax) 09/25/19 [place] [address] [place] [address] Consulting General Surgery 09/25/19 Shanna June CNP [address] [place] [address] Referring Family Medicine 10/19/19 Agustin Valentino PA [address] [address] Referring Family Medicine 05/13/22 Building Maintenance Engineer Relationship Specialty Start Date End Date Thomas Calix MD [address] [place] [address] PCP - General Family Medicine 07/30/23 Antelmo Davey MD [address] [place] [address] (Fax) 09/25/19 [place] [address] [place] [address] Consulting General Surgery 09/25/19 Shanna June CNP [address] [place] [address] Referring Family Medicine 10/19/19 Agustin Valentino PA [address] [place] [address] Referring Family Medicine 05/13/22 Building Maintenance Engineer Relationship Specialty Start Date End Date Thomas Calix MD [address] [place] [address] PCP - General Family Medicine 07/30/23 Antelmo Davey MD [address] [place] [address] 09/25/19 [place] [address] [place] [address] Consulting General Surgery 09/25/19 Shanna June CNP [address] [place] [address] Referring Family Medicine 10/19/19 Agustin Valentino PA [address] [place] [address] Referring Family Medicine 05/13/22 Source Comments (unrecognize d section and content) In the event this informatio n is protected by the Federal Confidentiality of Alcohol and Drug Abuse Patient Records regulations: The Federal rules restrict any use of the information to criminally investigate or prosecute any alcohol or drug abuse patient.[facility] CenterIn the event this information is protected by the Federal Confidentiality of Alcohol and Drug Abuse Patient Records regulations: The Federal rules restrict any use of the information to criminally investigate or prosecute any alcohol or drug abuse patient.[facility] CenterIn the event this information is protected by the Federal Confidentiality of Alcohol and Drug Abuse Patient Records regulations: The Federal rules restrict any use of the information to criminally investigate or prosecute any alcohol or drug abuse patient.[facility] CenterIn the event this information is protected by the Federal Confidentiality of Alcohol and Drug Abuse Patient Records regulations: The Federal rules restrict any use of the information to criminally investigate or prosecute any alcohol or drug abuse patient.[facility] CenterIn the event this information is protected by the Federal Confidentiality of Alcohol and Drug Abuse Patient Records regulations: The Federal rules restrict any use of the information to criminally investigate or prosecute any alcohol or drug abuse patient.[facility] CenterIn the event this information is protected by the Federal Confidentiality of Alcohol and Drug Abuse Patient Records regulations: The Federal rules restrict any use of the information to criminally investigate or prosecute any alcohol or drug abuse patient.[facility] CenterIn the event this information is protected by the Federal Confidentiality of Alcohol and Drug Abuse Patient Records regulations: The Federal rules restrict any use of the information to criminally investigate or prosecute any alcohol or drug abuse patient.[facility] CenterIn the event this information is protected by the Federal Confidentiality of Alcohol and Drug Abuse Patient Records regulations: The Federal rules restrict any use of the information to criminally investigate or prosecute any alcohol or drug abuse patient.[facility] CenterIn the event this information is protected by the Federal Confidentiality of Alcohol and Drug Abuse Patient Records regulations: The Federal rules restrict any use of the information to criminally investigate or prosecute any alcohol or drug abuse patient.[facility] CenterIn the event this information is protected by the Federal Confidentiality of Alcohol and Drug Abuse Patient Records regulations: The Federal rules restrict any use of the information to criminally investigate or prosecute any alcohol or drug abuse patient.[facility] CenterIn the event this information is protected by the Federal Confidentiality of Alcohol and Drug Abuse Patient Records regulations: The Federal rules restrict any use of the information to criminally investigate or prosecute any alcohol or drug abuse patient.[facility] CenterIn the event this information is protected by the Federal Confidentiality of Alcohol and Drug Abuse Patient Records regulations: The Federal rules restrict any use of the information to criminally investigate or prosecute any alcohol or drug abuse patient.[facility] CenterIn the event this information is protected by the Federal Confidentiality of Alcohol and Drug Abuse Patient Records regulations: The Federal rules restrict any use of the information to criminally investigate or prosecute any alcohol or drug abuse patient.[facility] CenterIn the event this information is protected by the Federal Confidentiality of Alcohol and Drug Abuse Patient Records regulations: The Federal rules restrict any use of the information to criminally investigate or prosecute any alcohol or drug abuse patient.[facility] CenterIn the event this information is protected by the Federal Confidentiality of Alcohol and Drug Abuse Patient Records regulations: The Federal rules restrict any use of the information to criminally investigate or prosecute any alcohol or drug abuse patient.[facility] CenterIn the event this information is protected by the Federal Confidentiality of Alcohol and Drug Abuse Patient Records regulations: The Federal rules restrict any use of the information to criminally investigate or prosecute any alcohol or drug abuse patient.[facility] CenterIn the event this information is protected by the Federal Confidentiality of Alcohol and Drug Abuse Patient Records regulations: The Federal rules restrict any use of the information to criminally investigate or prosecute any alcohol or drug abuse patient.[facility] CenterIn the event this information is protected by the Federal Confidentiality of Alcohol and Drug Abuse Patient Records regulations: The Federal rules restrict any use of the information to criminally investigate or prosecute any alcohol or drug abuse patient.[facility] CenterIn the event this information is protected by the Federal Confidentiality of Alcohol and Drug Abuse Patient Records regulations: The Federal rules restrict any use of the information to criminally investigate or prosecute any alcohol or drug abuse patient.[facility] CenterIn the event this information is protected by the Federal Confidentiality of Alcohol and Drug Abuse Patient Records regulations: The Federal rules restrict any use of the information to criminally investigate or prosecute any alcohol or drug abuse patient.[facility] CenterIn the event this information is protected by the Federal Confidentiality of Alcohol and Drug Abuse Patient Records regulations: The Federal rules restrict any use of the information to criminally investigate or prosecute any alcohol or drug abuse patient.[facility] CenterIn the event this information is protected by the Federal Confidentiality of Alcohol and Drug Abuse Patient Records regulations: The Federal rules restrict any use of the information to criminally investigate or prosecute any alcohol or drug abuse patient.[facility] CenterIn the event this information is protected by the Federal Confidentiality of Alcohol and Drug Abuse Patient Records regulations: The Federal rules restrict any use of the information to criminally investigate or prosecute any alcohol or drug abuse patient.[facility] CenterIn the event this information is protected by the Federal Confidentiality of Alcohol and Drug Abuse Patient Records regulations: The Federal rules restrict any use of the information to criminally investigate or prosecute any alcohol or drug abuse patient.[facility] CenterIn the event this information is protected by the Federal Confidentiality of Alcohol and Drug Abuse Patient Records regulations: The Federal rules restrict any use of the information to criminally investigate or prosecute any alcohol or drug abuse patient.[facility] CenterIn the event this information is protected by the Federal Confidentiality of Alcohol and Drug Abuse Patient Records regulations: The Federal rules restrict any use of the information to criminally investigate or prosecute any alcohol or drug abuse patient.[facility] CenterIn the event this information is protected by the Federal Confidentiality of Alcohol and Drug Abuse Patient Records regulations: The Federal rules restrict any use of the information to criminally investigate or prosecute any alcohol or drug abuse patient.[facility] CenterIn the event this information is protected by the Federal Confidentiality of Alcohol and Drug Abuse Patient Records regulations: The Federal rules restrict any use of the information to criminally investigate or prosecute any alcohol or drug abuse patient.[facility] CenterIn the event this information is protected by the Federal Confidentiality of Alcohol and Drug Abuse Patient Records regulations: The Federal rules restrict any use of the information to criminally investigate or prosecute any alcohol or drug abuse patient.[facility] CenterIn the event this information is protected by the Federal Confidentiality of Alcohol and Drug Abuse Patient Records regulations: The Federal rules restrict any use of the information to criminally investigate or prosecute any alcohol or drug abuse patient.[facility] CenterIn the event this information is protected by the Federal Confidentiality of Alcohol and Drug Abuse Patient Records regulations: The Federal rules restrict any use of the information to criminally investigate or prosecute any alcohol or drug abuse patient.[facility] CenterIn the event this information is protected by the Federal Confidentiality of Alcohol and Drug Abuse Patient Records regulations: The Federal rules restrict any use of the information to criminally investigate or prosecute any alcohol or drug abuse patient.[facility] CenterIn the event this information is protected by the Federal Confidentiality of Alcohol and Drug Abuse Patient Records regulations: The Federal rules restrict any use of the information to criminally investigate or prosecute any alcohol or drug abuse patient.[facility] CenterIn the event this information is protected by the Federal Confidentiality of Alcohol and Drug Abuse Patient Records regulations: The Federal rules restrict any use of the information to criminally investigate or prosecute any alcohol or drug abuse patient.[facility] CenterIn the event this information is protected by the Federal Confidentiality of Alcohol and Drug Abuse Patient Records regulations: The Federal rules restrict any use of the information to criminally investigate or prosecute any alcohol or drug abuse patient.[facility] CenterIn the event this information is protected by the Federal Confidentiality of Alcohol and Drug Abuse Patient Records regulations: The Federal rules restrict any use of the information to criminally investigate or prosecute any alcohol or drug abuse patient.[facility] CenterIn the event this information is protected by the Federal Confidentiality of Alcohol and Drug Abuse Patient Records regulations: The Federal rules restrict any use of the information to criminally investigate or prosecute any alcohol or drug abuse patient.[facility] CenterIn the event this information is protected by the Federal Confidentiality of Alcohol and Drug Abuse Patient Records regulations: The Federal rules restrict any use of the information to criminally investigate or prosecute any alcohol or drug abuse patient.[facility] CenterIn the event this information is protected by the Federal Confidentiality of Alcohol and Drug Abuse Patient Records regulations: The Federal rules restrict any use of the information to criminally investigate or prosecute any alcohol or drug abuse patient.[facility] CenterIn the event this information is protected by the Federal Confidentiality of Alcohol and Drug Abuse Patient Records regulations: The Federal rules restrict any use of the information to criminally investigate or prosecute any alcohol or drug abuse patient.[facility] CenterIn the event this information is protected by the Federal Confidentiality of Alcohol and Drug Abuse Patient Records regulations: The Federal rules restrict any use of the information to criminally investigate or prosecute any alcohol or drug abuse patient.[facility] CenterIn the event this information is protected by the Federal Confidentiality of Alcohol and Drug Abuse Patient Records regulations: The Federal rules restrict any use of the information to criminally investigate or prosecute any alcohol or drug abuse patient.[facility] CenterIn the event this information is protected by the Federal Confidentiality of Alcohol and Drug Abuse Patient Records regulations: The Federal rules restrict any use of the information to criminally investigate or prosecute any alcohol or drug abuse patient.[facility] CenterIn the event this information is protected by the Federal Confidentiality of Alcohol and Drug Abuse Patient Records regulations: The Federal rules restrict any use of the information to criminally investigate or prosecute any alcohol or drug abuse patient.[facility] CenterIn the event this information is protected by the Federal Confidentiality of Alcohol and Drug Abuse Patient Records regulations: The Federal rules restrict any use of the information to criminally investigate or prosecute any alcohol or drug abuse patient.[facility] CenterIn the event this information is protected by the Federal Confidentiality of Alcohol and Drug Abuse Patient Records regulations: The Federal rules restrict any use of the information to criminally investigate or prosecute any alcohol or drug abuse patient.[facility] CenterIn the event this information is protected by the Federal Confidentiality of Alcohol and Drug Abuse Patient Records regulations: The Federal rules restrict any use of the information to criminally investigate or prosecute any alcohol or drug abuse patient.[facility] CenterIn the event this information is protected by the Federal Confidentiality of Alcohol and Drug Abuse Patient Records regulations: The Federal rules restrict any use of the information to criminally investigate or prosecute any alcohol or drug abuse patient.[facility] CenterIn the event this information is protected by the Federal Confidentiality of Alcohol and Drug Abuse Patient Records regulations: The Federal rules restrict any use of the information to criminally investigate or prosecute any alcohol or drug abuse patient.[facility] CenterIn the event this information is protected by the Federal Confidentiality of Alcohol and Drug Abuse Patient Records regulations: The Federal rules restrict any use of the information to criminally investigate or prosecute any alcohol or drug abuse patient.[facility] CenterIn the event this information is protected by the Federal Confidentiality of Alcohol and Drug Abuse Patient Records regulations: The Federal rules restrict any use of the information to criminally investigate or prosecute any alcohol or drug abuse patient.[facility] CenterIn the event this information is protected by the Federal Confidentiality of Alcohol and Drug Abuse Patient Records regulations: The Federal rules restrict any use of the information to criminally investigate or prosecute any alcohol or drug abuse patient.[facility] CenterIn the event this information is protected by the Federal Confidentiality of Alcohol and Drug Abuse Patient Records regulations: The Federal rules restrict any use of the information to criminally investigate or prosecute any alcohol or drug abuse patient.[facility] CenterIn the event this information is protected by the Federal Confidentiality of Alcohol and Drug Abuse Patient Records regulations: The Federal rules restrict any use of the information to criminally investigate or prosecute any alcohol or drug abuse patient.[facility] CenterIn the event this information is protected by the Federal Confidentiality of Alcohol and Drug Abuse Patient Records regulations: The Federal rules restrict any use of the information to criminally investigate or prosecute any alcohol or drug abuse patient.[facility] CenterIn the event this information is protected by the Federal Confidentiality of Alcohol and Drug Abuse Patient Records regulations: The Federal rules restrict any use of the information to criminally investigate or prosecute any alcohol or drug abuse patient.[facility] CenterIn the event this information is protected by the Federal Confidentiality of Alcohol and Drug Abuse Patient Records regulations: The Federal rules restrict any use of the information to criminally investigate or prosecute any alcohol or drug abuse patient.[facility] CenterIn the event this information is protected by the Federal Confidentiality of Alcohol and Drug Abuse Patient Records regulations: The Federal rules restrict any use of the information to criminally investigate or prosecute any alcohol or drug abuse patient.[facility] CenterIn the event this information is protected by the Federal Confidentiality of Alcohol and Drug Abuse Patient Records regulations: The Federal rules restrict any use of the information to criminally investigate or prosecute any alcohol or drug abuse patient.[facility] CenterIn the event this information is protected by the Federal Confidentiality of Alcohol and Drug Abuse Patient Records regulations: The Federal rules restrict any use of the information to criminally investigate or prosecute any alcohol or drug abuse patient.[facility] CenterIn the event this information is protected by the Federal Confidentiality of Alcohol and Drug Abuse Patient Records regulations: The Federal rules restrict any use of the information to criminally investigate or prosecute any alcohol or drug abuse patient.[facility] CenterIn the event this information is protected by the Federal Confidentiality of Alcohol and Drug Abuse Patient Records regulations: The Federal rules restrict any use of the information to criminally investigate or prosecute any alcohol or drug abuse patient.[facility] CenterIn the event this information is protected by the Federal Confidentiality of Alcohol and Drug Abuse Patient Records regulations: The Federal rules restrict any use of the information to criminally investigate or prosecute any alcohol or drug abuse patient.[facility] CenterIn the event this information is protected by the Federal Confidentiality of Alcohol and Drug Abuse Patient Records regulations: The Federal rules restrict any use of the information to criminally investigate or prosecute any alcohol or drug abuse patient.[facility] CenterIn the event this information is protected by the Federal Confidentiality of Alcohol and Drug Abuse Patient Records regulations: The Federal rules restrict any use of the information to criminally investigate or prosecute any alcohol or drug abuse patient.[facility] CenterIn the event this information is protected by the Federal Confidentiality of Alcohol and Drug Abuse Patient Records regulations: The Federal rules restrict any use of the information to criminally investigate or prosecute any alcohol or drug abuse patient.[facility] CenterIn the event this information is protected by the Federal Confidentiality of Alcohol and Drug Abuse Patient Records regulations: The Federal rules restrict any use of the information to criminally investigate or prosecute any alcohol or drug abuse patient.[facility] CenterIn the event this information is protected by the Federal Confidentiality of Alcohol and Drug Abuse Patient Records regulations: The Federal rules restrict any use of the information to criminally investigate or prosecute any alcohol or drug abuse patient.[facility] CenterIn the event this information is protected by the Federal Confidentiality of Alcohol and Drug Abuse Patient Records regulations: The Federal rules restrict any use of the information to criminally investigate or prosecute any alcohol or drug abuse patient.[facility] CenterIn the event this information is protected by the Federal Confidentiality of Alcohol and Drug Abuse Patient Records regulations: The Federal rules restrict any use of the information to criminally investigate or prosecute any alcohol or drug abuse patient.[facility] CenterIn the event this information is protected by the Federal Confidentiality of Alcohol and Drug Abuse Patient Records regulations: The Federal rules restrict any use of the information to criminally investigate or prosecute any alcohol or drug abuse patient.[facility] CenterIn the event this information is protected by the Federal Confidentiality of Alcohol and Drug Abuse Patient Records regulations: The Federal rules restrict any use of the information to criminally investigate or prosecute any alcohol or drug abuse patient.[facility]In the event this information is protected by the Federal Confidentiality of Alcohol and Drug Abuse Patient Records regulations: The Federal rules restrict any use of the information to criminally investigate or prosecute any alcohol or drug abuse patient.[facility] CenterIn the event this information is protected by the Federal Confidentiality of Alcohol and Drug Abuse Patient Records regulations: The Federal rules restrict any use of the information to criminally investigate or prosecute any alcohol or drug abuse patient.[facility] CenterIn the event this information is protected by the Federal Confidentiality of Alcohol and Drug Abuse Patient Records regulations: The Federal rules restrict any use of the information to criminally investigate or prosecute any alcohol or drug abuse patient.[facility]In the event this information is protected by the Federal Confidentiality of Alcohol and Drug Abuse Patient Records regulations: The Federal rules restrict any use of the information to criminally investigate or prosecute any alcohol or drug abuse patient.[facility] CenterIn the event this information is protected by the Federal Confidentiality of Alcohol and Drug Abuse Patient Records regulations: The Federal rules restrict any use of the information to criminally investigate or prosecute any alcohol or drug abuse patient.[facility] CenterIn the event this information is protected by the Federal Confidentiality of Alcohol and Drug Abuse Patient Records regulations: The Federal rules restrict any use of the information to criminally investigate or prosecute any alcohol or drug abuse patient.[facility]In the event this information is protected by the Federal Confidentiality of Alcohol and Drug Abuse Patient Records regulations: The Federal rules restrict any use of the information to criminally investigate or prosecute any alcohol or drug abuse patient.[facility] CenterIn the event this information is protected by the Federal Confidentiality of Alcohol and Drug Abuse Patient Records regulations: The Federal rules restrict any use of the information to criminally investigate or prosecute any alcohol or drug abuse patient.[facility]In the event this information is protected by the Federal Confidentiality of Alcohol and Drug Abuse Patient Records regulations: The Federal rules restrict any use of the information to criminally investigate or prosecute any alcohol or drug abuse patient.[facility] CenterIn the event this information is protected by the Federal Confidentiality of Alcohol and Drug Abuse Patient Records regulations: The Federal rules restrict any use of the information to criminally investigate or prosecute any alcohol or drug abuse patient.[facility]In the event this information is protected by the Federal Confidentiality of Alcohol and Drug Abuse Patient Records regulations: The Federal rules restrict any use of the information to criminally investigate or prosecute any alcohol or drug abuse patient.[facility]In the event this information is protected by the Federal Confidentiality of Alcohol and Drug Abuse Patient Records regulations: The Federal rules restrict any use of the information to criminally investigate or prosecute any alcohol or drug abuse patient.[facility]In the event this information is protected by the Federal Confidentiality of Alcohol and Drug Abuse Patient Records regulations: The Federal rules restrict any use of the information to criminally investigate or prosecute any alcohol or drug abuse patient.[facility]In the event this information is protected by the Federal Confidentiality of Alcohol and Drug Abuse Patient Records regulations: The Federal rules restrict any use of the information to criminally investigate or prosecute any alcohol or drug abuse patient.[facility]In the event this information is protected by the Federal Confidentiality of Alcohol and Drug Abuse Patient Records regulations: The Federal rules restrict any use of the information to criminally investigate or prosecute any alcohol or drug abuse patient.[facility]In the event this information is protected by the Federal Confidentiality of Alcohol and Drug Abuse Patient Records regulations: The Federal rules restrict any use of the information to criminally investigate or prosecute any alcohol or drug abuse patient.[facility]In the event this information is protected by the Federal Confidentiality of Alcohol and Drug Abuse Patient Records regulations: The Federal rules restrict any use of the information to criminally investigate or prosecute any alcohol or drug abuse patient.[facility]In the event this information is protected by the Federal Confidentiality of Alcohol and Drug Abuse Patient Records regulations: The Federal rules restrict any use of the information to criminally investigate or prosecute any alcohol or drug abuse patient.[facility]In the event this information is protected by the Federal Confidentiality of Alcohol and Drug Abuse Patient Records regulations: The Federal rules restrict any use of the information to criminally investigate or prosecute any alcohol or drug abuse patient.[facility]In the event this information is protected by the Federal Confidentiality of Alcohol and Drug Abuse Patient Records regulations: The Federal rules restrict any use of the information to criminally investigate or prosecute any alcohol or drug abuse patient.[facility]In the event this information is protected by the Federal Confidentiality of Alcohol and Drug Abuse Patient Records regulations: The Federal rules restrict any use of the information to criminally investigate or prosecute any alcohol or drug abuse patient.[facility]In the event this information is protected by the Federal Confidentiality of Alcohol and Drug Abuse Patient Records regulations: The Federal rules restrict any use of the information to criminally investigate or prosecute any alcohol or drug abuse patient.[facility]In the event this information is protected by the Federal Confidentiality of Alcohol and Drug Abuse Patient Records regulations: The Federal rules restrict any use of the information to criminally investigate or prosecute any alcohol or drug abuse patient.[facility]In the event this information is protected by the Federal Confidentiality of Alcohol and Drug Abuse Patient Records regulations: The Federal rules restrict any use of the information to criminally investigate or prosecute any alcohol or drug abuse patient.[facility]In the event this information is protected by the Federal Confidentiality of Alcohol and Drug Abuse Patient Records regulations: The Federal rules restrict any use of the information to criminally investigate or prosecute any alcohol or drug abuse patient.[facility]In the event this information is protected by the Federal Confidentiality of Alcohol and Drug Abuse Patient Records regulations: The Federal rules restrict any use of the information to criminally investigate or prosecute any alcohol or drug abuse patient.[facility]In the event this information is protected by the Federal Confidentiality of Alcohol and Drug Abuse Patient Records regulations: The Federal rules restrict any use of the information to criminally investigate or prosecute any alcohol or drug abuse patient.[facility]In the event this information is protected by the Federal Confidentiality of Alcohol and Drug Abuse Patient Records regulations: The Federal rules restrict any use of the information to criminally investigate or prosecute any alcohol or drug abuse patient.[facility]In the event this information is protected by the Federal Confidentiality of Alcohol and Drug Abuse Patient Records regulations: The Federal rules restrict any use of the information to criminally investigate or prosecute any alcohol or drug abuse patient.[facility]In the event this information is protected by the Federal Confidentiality of Alcohol and Drug Abuse Patient Records regulations: The Federal rules restrict any use of the information to criminally investigate or prosecute any alcohol or drug abuse patient.[facility]In the event this information is protected by the Federal Confidentiality of Alcohol and Drug Abuse Patient Records regulations: The Federal rules restrict any use of the information to criminally investigate or prosecute any alcohol or drug abuse patient.[facility]In the event this information is protected by the Federal Confidentiality of Alcohol and Drug Abuse Patient Records regulations: The Federal rules restrict any use of the information to criminally investigate or prosecute any alcohol or drug abuse patient.[facility]In the event this information is protected by the Federal Confidentiality of Alcohol and Drug Abuse Patient Records regulations: The Federal rules restrict any use of the information to criminally investigate or prosecute any alcohol or drug abuse patient.[facility]In the event this information is protected by the Federal Confidentiality of Alcohol and Drug Abuse Patient Records regulations: The Federal rules restrict any use of the information to criminally investigate or prosecute any alcohol or drug abuse patient.[facility]In the event this information is protected by the Federal Confidentiality of Alcohol and Drug Abuse Patient Records regulations: The Federal rules restrict any use of the information to criminally investigate or prosecute any alcohol or drug abuse patient.[facility]In the event this information is protected by the Federal Confidentiality of Alcohol and Drug Abuse Patient Records regulations: The Federal rules restrict any use of the information to criminally investigate or prosecute any alcohol or drug abuse patient.[facility]In the event this information is protected by the Federal Confidentiality of Alcohol and Drug Abuse Patient Records regulations: The Federal rules restrict any use of the information to criminally investigate or prosecute any alcohol or drug abuse patient.[facility]In the event this information is protected by the Federal Confidentiality of Alcohol and Drug Abuse Patient Records regulations: The Federal rules restrict any use of the information to criminally investigate or prosecute any alcohol or drug abuse patient.[facility]In the event this information is protected by the Federal Confidentiality of Alcohol and Drug Abuse Patient Records regulations: The Federal rules restrict any use of the information to criminally investigate or prosecute any alcohol or drug abuse patient.[facility]In the event this information is protected by the Federal Confidentiality of Alcohol and Drug Abuse Patient Records regulations: The Federal rules restrict any use of the information to criminally investigate or prosecute any alcohol or drug abuse patient.[facility]In the event this information is protected by the Federal Confidentiality of Alcohol and Drug Abuse Patient Records regulations: The Federal rules restrict any use of the information to criminally investigate or prosecute any alcohol or drug abuse patient.[facility]In the event this information is protected by the Federal Confidentiality of Alcohol and Drug Abuse Patient Records regulations: The Federal rules restrict any use of the information to criminally investigate or prosecute any alcohol or drug abuse patient.[facility]In the event this information is protected by the Federal Confidentiality of Alcohol and Drug Abuse Patient Records regulations: The Federal rules restrict any use of the information to criminally investigate or prosecute any alcohol or drug abuse patient.[facility] CenterIn the event this information is protected by the Federal Confidentiality of Alcohol and Drug Abuse Patient Records regulations: The Federal rules restrict any use of the information to criminally investigate or prosecute any alcohol or drug abuse patient.[facility] CenterIn the event this information is protected by the Federal Confidentiality of Alcohol and Drug Abuse Patient Records regulations: The Federal rules restrict any use of the information to criminally investigate or prosecute any alcohol or drug abuse patient.[facility] CenterIn the event this information is protected by the Federal Confidentiality of Alcohol and Drug Abuse Patient Records regulations: The Federal rules restrict any use of the information to criminally investigate or prosecute any alcohol or drug abuse patient.[facility] CenterIn the event this information is protected by the Federal Confidentiality of Alcohol and Drug Abuse Patient Records regulations: The Federal rules restrict any use of the information to criminally investigate or prosecute any alcohol or drug abuse patient.[facility] CenterIn the event this information is protected by the Federal Confidentiality of Alcohol and Drug Abuse Patient Records regulations: The Federal rules restrict any use of the information to criminally investigate or prosecute any alcohol or drug abuse patient.[facility] CenterIn the event this information is protected by the Federal Confidentiality of Alcohol and Drug Abuse Patient Records regulations: The Federal rules restrict any use of the information to criminally investigate or prosecute any alcohol or drug abuse patient.[facility] CenterIn the event this information is protected by the Federal Confidentiality of Alcohol and Drug Abuse Patient Records regulations: The Federal rules restrict any use of the information to criminally investigate or prosecute any alcohol or drug abuse patient.[facility] CenterIn the event this information is protected by the Federal Confidentiality of Alcohol and Drug Abuse Patient Records regulations: The Federal rules restrict any use of the information to criminally investigate or prosecute any alcohol or drug abuse patient.[facility] CenterIn the event this information is protected by the Federal Confidentiality of Alcohol and Drug Abuse Patient Records regulations: The Federal rules restrict any use of the information to criminally investigate or prosecute any alcohol or drug abuse patient.[facility] CenterIn the event this information is protected by the Federal Confidentiality of Alcohol and Drug Abuse Patient Records regulations: The Federal rules restrict any use of the information to criminally investigate or prosecute any alcohol or drug abuse patient.[facility] CenterIn the event this information is protected by the Federal Confidentiality of Alcohol and Drug Abuse Patient Records regulations: The Federal rules restrict any use of the information to criminally investigate or prosecute any alcohol or drug abuse patient.[facility] CenterIn the event this information is protected by the Federal Confidentiality of Alcohol and Drug Abuse Patient Records regulations: The Federal rules restrict any use of the information to criminally investigate or prosecute any alcohol or drug abuse patient.[facility] CenterIn the event this information is protected by the Federal Confidentiality of Alcohol and Drug Abuse Patient Records regulations: The Federal rules restrict any use of the information to criminally investigate or prosecute any alcohol or drug abuse patient.[facility] Ordered Prescriptions (unrec ognized section and content) [...] BE BASED ON THE PRIMARY CLINICAL RECORDS. [employer] provides no warranty or guarantee of the accuracy or completeness of information in this document.
[2023-09-04 10:21] LABS: Alanine Aminotransferase 88 U/L (14-59); Albumin Globulin Ratio 1.1; Albumin Level 3.6 g/dL (3.4-5.0); Alkaline Phosphatase 62 U/L (46-116); Aspartate Amino Transferase 88 U/L (15-37); BUN Creatinine Ratio 14.6; Bilirubin Total 0.4 mg/dL (0.2-1.0); Calcium 8.3 mg/dL (8.5-10.1); Chloride 104 mmol/L (98-107); Estimated GFR (African America >60 (>=60); Estimated GFR (Non-African Ame >60 (>=60); Globulin 3.3 g/dL; Glucose 79 mg/dL (74-106); Sodium 140 mmol/L (136-145); Total Protein 6.9 g/dL (6.4-8.2); Triglycerides 126 mg/dL (<=150)
== END 2023-09-04 09:57 | disposition home or self-care (01) ==
LOC: LAB 09:56
PROVIDERS: PCP Family Medicine; Visit Provider Family Medicine
DX: E44.0 Moderate protein-calorie malnutrition (principal); R11.2 Nausea with vomiting, unspecified; E78.5 Hyperlipidemia, unspecified
CPT/HCPCS: 36415; 80053; 83735; 84100; 84478; 85025

== ENCOUNTER 2023-09-07 16:59 | Outpatient (OUT) | payer OTHER, SELFPAY ==
--- NOTE | 2023-09-07 17:00 | US_ITS ---
The [address] [address] Patient Name: JUAN KONG MRN: [id number] date: 1990 Sex: F Assigned Patient Location: US Current Patient Location: Accession/Order Number: [id number] Exam Date: 09/07/2023 17:04 Report Date: 09/08/2023 07:09 At the request of: BRITT CALIX Procedure: US right upper quadrant EXAM: US right upper quadrant HISTORY: RIGHT UPPER QUADRANT PAIN R10.11 COMPARISON: None. TECHNIQUE: Grayscale, color and Doppler FINDINGS: The liver measures 16.3 cm in length. The liver is normal in size, contour and echotexture. Normal hepatopedal flow in the main portal vein with velocity 28 cm/s. Areas of anechoic echogenicity within the liver measuring up to 2.1 cm, simple cysts are favored. The left lobe is poorly visualized due to bowel gas. The gallbladder is surgically absent. The common bile duct measures 4.4 mm, normal. The visualized pancreatic body is normal The right kidney is normal measuring 10.8 x 5.2 x 5.7 cm. 4 mm echogenic foci, nonobstructing nephrolithiasis US/US right upper quadrant IMPRESSION: No acute abnormality Electronically authenticated by: BALDOMERO MARCELO Date: 09/08/2023 07:09
== END 2023-09-07 17:00 | disposition home or self-care (01) ==
PROVIDERS: PCP Family Medicine; Visit Provider Family Medicine
DX: R10.11 Right upper quadrant pain (principal)
CPT/HCPCS: 76705

== ENCOUNTER 2023-09-08 15:59 | Outpatient (OUT) | payer OTHER, SELFPAY ==
--- NOTE | 2023-09-08 | CT_ITS ---
The [address] [address] Patient Name: JUAN KONG MRN: [id number] date: 1990 Sex: F Assigned Patient Location: CT Current Patient Location: Accession/Order Number: [id number] Exam Date: 09/08/2023 16:05 Report Date: 09/09/2023 08:14 At the request of: BRITT CALIX Procedure: CT abdomen pelvis wo con EXAMINATION: CT abdomen pelvis wo con HISTORY: gross hematuria R31.0 COMPARISON: 07/08/2023 TECHNIQUE: Axial, Coronal, and Sagittal images were created without IV contrast. Dose reduction techniques were achieved by using automated exposure control and/or adjustment of mA and/or kV according to patient size and/or use of iterative reconstruction technique. FINDINGS: LUNG BASES: No visible pulmonary or pleural disease. LIVER: Numerous hypodensities the larger lesions are likely cysts. The smaller lesions are too small to characterize BILIARY: Surgical clips from cholecystectomy PANCREAS: No lesion, fluid collection, ductal dilatation, or atrophy. SPLEEN: No enlargement or focal lesion. ADRENALS: No mass or enlargement. KIDNEYS: No mass, obstruction, or calcification. BOWEL/MESENTERY: Multiple gastric suture lines. Percutaneous jejunostomy tube. Nonobstructive bowel gas pattern. AORTA/VASCULAR: No aortic aneurysm RETROPERITONEUM: No mass or adenopathy. LYMPH NODES: No adenopathy. URINARY BLADDER: No visible focal wall thickening, lesion, or calculus. PELVIC ORGANS: Hysterectomy ABDOMINAL WALL: No mass or hernia. BONES: No bony lesion or fracture. OTHER: Negative. CT/CT abdomen pelvis wo con IMPRESSION: No CT explanation for the patient's hematuria on a limited noncontrast exam Electronically authenticated by: BALDOMERO MARCELO Date: 09/09/2023 08:14
== END 2023-09-08 16:00 | disposition home or self-care (01) ==
PROVIDERS: PCP Family Medicine; Visit Provider Family Medicine
DX: R31.0 Gross hematuria (principal)
CPT/HCPCS: 74176

== ENCOUNTER 2023-09-11 10:07 | Outpatient (REF) | payer OTHER, SELFPAY ==
[2023-09-11 10:19] LABS: Basophils Percent Auto 0.8 % (0.2-2.0); Eosinophils Absolute Auto 0.1 10^3/uL (0.0-0.7); Hematocrit 33.7 % (36.0-48.0); Hemoglobin 11.1 g/dL (12.0-16.0); Immature Granulocytes Abs Auto 0.01 10^3/uL (0.00-0.03); Immature Granulocytes Pct Auto 0.2 % (0.0-0.5); Lymphocytes Absolute Auto 0.7 10^3/uL (1.2-3.8); Lymphocytes Percent Auto 12.9 % (20.5-60.0); Mean Corpuscular HGB Conc 32.9 g/dL (29.9-35.2); Mean Corpuscular Hemoglobin 28.5 pg (26.7-34.0); Mean Corpuscular Volume 86.6 fL (81.0-99.0); Mean Platelet Volume 10.9 fL (9.5-13.5); Monocytes Absolute Auto 0.2 10^3/uL (0.3-0.8); Monocytes Percent Auto 4.1 % (1.7-12.0); Neutrophils Absolute Auto 4.2 10^3/uL (1.4-6.5); Platelet Count 260 10^3/uL (150-450); Red Blood Count 3.89 10^6/uL (4.20-5.40); White Blood Count 5.1 10^3/uL (4.0-11.0)
--- OUTSIDE RECORDS SUMMARY | 2023-09-11 10:20 | XMS_ITS | CCD ---
Author Organization [facility] ion Partnership [facility] Care Team Providers Care Band Saw Runner Name Role Phone PHYSICIAN, DEFAULT Unavailable Unavailable PHYSICIAN, DEFAULT Unavailable Unavailable Shanna June Primary Care Provider Unavail able Slade ROOFING APPLICATOR, Shanna Primary Care Provider Mona vailable Slade AMMONIA SOLUTION PREPARER - FOLLOW UP MANAGER, Shanna Primary Care Provid er LUCIE MORA Attending Unavailable SHANNA JUNE Primary Care Unavailable SHANNA JUNE Referring Unavailable LUCIE MORA Attending Unavailable SHANNA JUNE Primary Care Unavailable SELF, SELF Referring Unavailable Antelmo Davey Unavailable Deacon Kat MD Unavailable Shanna June CNP Unavailable [phone] Shanna June CNP Primary Care Provider Antelmo Davey MD Unavailable Wally Foley Primary Care Provider Shanna June Unavailable Wally Foley Primary Care Provider Antelmo Davey MD Unavailable Deacon Kat MD Unavailable Shanna June CNP Unavailable Shanna June CNP Primary Care Provider Antelmo Davey MD Unavailable Deacon Kat MD Unavailable [phone] Shanna June CNP Unavailable Shanna June CNP Primary Care Provider [phone] Slade RADIOCOMMUNICATIONS TECHNICIAN, Shanna Unavailable [phone] Slade RADIOCOMMUNICATIONS TECHNICIAN, Shanna Primary Care Provider Tamica JOHNSON Edcharles Unger Unavailable Jacquelyn JOHNSON Deacon Zita Unavailable Slade RADIOCOMMUNICATIONS TECHNICIAN, Shanna Unavailable Slade RADIOCOMMUNICATIONS TECHNICIAN, Shanna Primary Care Provider Wally Foley MD Primary Care Provider [phone] Jaquan Morrow Primary Care Physician Agustin Valentino [...] Unavailable ZURDO ., DR BURCH Admitting Unavailable SILETZ, DR BALDOMERO Campos Consulting Unavailable ZURDO ., [...] DR WALLY Graf Admitting Unavailable ZIEBER, DR LAVERTO Ahumada Consulting Unavailable MISC, DR CONTRERAS Attending [...] Unavailable Agustin Valentino Unavailable Agustin Bautista Unavailable [phone] Wally Foley Primary Care Provider [phone] WALLY FOLEY Primary Care Unavailable EMMY WATSON [id number] Attending Unavailable WALLY FOLEY Primary Care Unavailable JD RAINEY Attending Unavailable WALLY FOLEY Primary Care Unavailable Shanna Roberts Primary Care Provider Mona vakayeble DMIITRI WALKER Attending Unavailable SLADE SHANNA Primary Care Unavailable Giedraitis Michelle JOHNSON Attending Unavailable JAQUAN MORROW Primary Care Unavailable CRISTHIAN, JAQUAN Primary Care Unavailable RODRIGUEZ Attending Unavailable CAMDEN RODRIGUEZ Admitting Unavailable CRISTHIAN, JAQUAN Primary Care Unavailable BRUNO WHEAT Consulting Unavailable CORIE HENDRICKSON Attending Unavailable Cristhian AMMONIA SOLUTION PREPARER.Jaquan CAMPOS Primary Care Provider JAQUAN MORROW L Primary Care Unavailable VIC RAMOS Attending Unavailable VIC RAMOS Admitting Unavailable ZEYAD Morrow-C Jaquan Ortega Primary Care Provider DO Claus Obrien Emergency Provider [phone] GENERIC PROVIDER, NO ASSIGNED PCP Primary Care Unavailable Generic Provider , No Assigned Pcp Primary Car e Provider Unavailable Generic Provider , No Assigned Pcp Primary Car e Provider Unavailable Jannyore, ROOFING APPLICATOR-BC Trace E Emergency Provider [phone] Generic Provider , No Assigned Pcp Primary Car e Provider Unavailable Cristhian, FOLLOW UP MANAGER-C Jaquan Ortega Primary Care Provider Beverley [facility] Trace E Emergency Provider SLIM Parker Emergency Provider Cristhian AMMONIA SOLUTION PREPARER.BETH, Jaquan L Primary Care Provider Generic Provider , No Assigned Pcp Primary Car e Provider Unavailable GENERIC PROVIDER, NO ASSIGNED PCP Primary Care Unavailable Deacon Kat MD Unavailable [phone] Generic Provider , No Assigned Pcp [...] CRISTHIAN, JAQUAN L Primary Care Unavailable Cristhian, FOLLOW UP MANAGER-C Jaquan Ortega Primary Care Provider MD Thomas Calix Primary Care Provider [phone] GABRIELLA Sabillon Emergency Provider [phone] MD Tahir Whitt Admit Provider MD Tahir Whitt Attending Provider DO Camden Rodriguez Admit Provider DO Camden Rodriguez Attending Provider [phone] MD Keven Kimbrough Other Provider SHERRY MAGAÑA [...] GUTIERREZ Consulting Unavailable JAH-ULI, KURT Consulting Unavailable SHERRY MAGAÑA M Attending Unavailable SHERRY MAGAÑA Attending Unavailable WINTER RICKETTS Primary Care Unavailable SHERRY MAGAÑA Attending Unavailable GENERIC PROVIDER, NO ASSIGNED PCP Primary Care Unavailable GENERIC PROVIDER, NO ASSIGNED PCP Primary Care Unavailable BALDOMERO WOODARD Admitting Unavailable DOLORES COX Attending Unavaila SHERRY Cevallos Consulting Unavailable DAVID VALADEZ Referring Unavailable GENERIC PROVIDER, NO ASSIGNED PCP Primary Care Unavailable CRISTHIAN, JAQUAN L Primary Care Unavailable TIFFANIE CHIU Attending UnavailSYLVAIN Cifuentes Referring Unavailable CRISTHIAN, JAQUAN L Primary Care Unavailable GUTNICK, DEACON R Referring Unavailable CIRSTHIAN, JAQUAN L Primary Care Unavailable GUTNICK, DEACON [...] Attending Unavailable DO Jeramy Cunningham Emergency Provider Agustin Bautista Unavailable Thomas Calix MD Primary Care Provider NONE, XXXX Primary Care Physician Unavailab Mateusz Mccoy. Attending Unavailable Earnest Jett Attending Unavailable CristhianJaquan Attending Unavailable Cristhian, Jaquan L Attending Unavailable Cristhian, Jaquan Johnson Attending Unavailable Cristhian, Jaquan Johnson Attending Unavailable Cristhian, Jaquan Johnson Attending Unavailable Cristhian, Jaquan Johnson Attending Unavailable Cristhian, Jaquan Johnson Attending Unavailable Lokesh Terry Attending Unavailable Cristhian, Jaquan Johnson Attending Unavailable Cristhian, Jaquan Johnson Attending Unavailable Cristhian, Jaquan Johnson Attending Unavailable Cristhian, Jaquan Johnson Admitting Unavailable Cristhian, Jaquan L Admitting Unavailable Cristhian, Jaquan Johnson Admitting Unavailable Cristhian, Jaquan Johnson Attending Unavailable Cristhian, Jaquan Johnson Attending Unavailable Cristhian, Jaquan Johnson Attending Unavailable Cristhian, Jaquan Johnson Attending Unavailable Cristhian, Jaquan Johnson Attending Unavailable Cristhian, Jaquan Johnson Attending Unavailable Johnie, Earnest Attending Unavailable Hajdmarshall, Astrjessenia H Attending Unavailable Earnest Jett Attending Unavailable Cristhian, Jaquan Johnson Admitting Unavailable Cristhian, Jaquan Johnson Admitting Unavailable Cristhian, Jaquan Johnson Attending Unavailable Rajni Roues Attending Unavailable OLGA GATICA Attending Unavailable Johnie, Earnest Attending Unavailable Jose Ramon, Astrjessenia H Attending Unavailable Mateusz Garcia Attending Unavailable Mateusz Garcia Attending Unavailable Mateusz Garcia Attending Unavailable Cristhian, Jaquan Johnson Attending Unavailable Cristhian, Jaquan Johnson Admitting Unavailable Moncho Trejo Attending Unavailable Moncho Trejo Admitting Unavailable Jon Rivera Talal Consulting UnavailMD Jon Stahl Talal Consulting Unava ilable Jon Rivera Talal Consulting Unavaila Jon Good Talal Consulting Unavaila rogelio Adamowicz, Gabino Consulting Unavailable Adamowicz, DO Gabino [...] MAIDANA Attending Unavailable CRISELDA NO Admitting Unavailable KAROfelia, CHETNA Consulting Unavailable CRISTHIAN, JAQUAN L Primary Care Unavailable CRISTHIAN, JAQUAN L Primary Care Unavailable DEACON KAT Referring Unavailable CRISTHIAN, JAQUAN L Primary Care Unavailable JACKSON ANDERSON Referring Unavailab KEESHA Cook Attending Unavailable ADIBI, STEVE Attending Unavailable ELISA VIVEROS Consulting Unavailable BEATRICEJACKIRASHMI Admitting Unavailable CRISTHIAN, JAQUAN L Primary Care Unavailable CRISTHIAN, JAQUAN L Primary Care Unavailable STEVE ESTRADA Admitting Unavailable MARIA TERESA MURILLO Attending Unavailable ALBERT HUBBARD Consulting Unavailable DO Claus Obrien Emergency Provider [phone] CRISTHIAN, JAQUAN L Primary Care Unavailable DEACON KAT Referring Unavailable DEACON KAT Attending Unavailable CRISTHIAN, JAQUAN L Primary Care Unavailable THACKER, RYLEE Referring Unavailable THACKERRYLEE Attending Unavailable HOY, THOMAS M Primary Care Unavailable BOOGIE MURGUIA Attending Unavailable YOGI, THOMAS M Primary Care Unavailable VIC RAMOS Referring Unavailable VIC RAMOS Attending Unavailable CRISTHIAN, JAQUAN L Primary Care Unavailable ROUPHAEL, KASIE Attending Unavailable CRISTHIAN, JAQUAN L Primary Care Unavailable WALLY FOLEY Referring Unavailable BREANNA STERN Attending Unavailable SHANNA WOODS Attending Unavailable ROMIE HAIRSTON Admitting Unavailable CRISTHIAN, JAQUAN L Primary Care Unavailable CRISTHIAN, JAQUAN L Primary Care Unavailable JARREDBREANNA LESLIE Referring Unavailable CRISTHIAN, JAQUAN L Primary Care Unavailable THACKERRYLEE Referring Unavailable THACKERRYLEE Attending Unavailable ANGELAY, THOMAS M Primary Care Unavailable ROUPHAEL, KASIE Referring Unavailable LEEANNBRITT Attending Unavailable HOY, THOMAS M Primary Care Unavailable ROUPHAEL, KASIE Referring Unavailable HOY, THOMAS M Primary Care Unavailable ROUPHAEL, KASIE Referring Unavailable CRISTHIAN, JAQUAN L Primary Care Unavailable DEACON KAT Attending Unavailable CRISTHIAN, JAQUAN L Primary Care Unavailable MATIASVIC HANNA Attending Unavailable CRISTHIAN, JAQUAN L Primary Care Unavailable THACKER, RYLEE Referring Unavailable THACKERRYLEE Attending Unavailable CRISTHIAN, JAQUAN L Primary Care Unavailable DEACON KAT Referring Unavailable BREANNA STERN Attending Unavailable KARINA العلي Attending Unavailable CRISTHIAN, JAQUAN L Primary Care Unavailable CRISTHIAN, JAQUAN L Primary Care Unavailable AGUSTIN ZAMORANO Attending Unavailable CRISTHIAN, JAQUAN L Primary Care Unavailable DEACON KAT Attending Unavailable SHANNA WOODS Attending Unavailable SEN MARCUS Admitting Unavaila ble HOY, THOMAS M Primary Care Unavailable CRISTHIAN, JAQUAN [...] Unavailable HOY, THOMAS M Primary Care Unavailable MARCOS MORENO Attending Unavailable JR. KELVIN, TINO Abbasi Attending Unavaila rogelio WARREN JR., TINO Abbasi Referring Unavaila rogelio WARREN JR., TINO Abbasi Attending Unavaila ble Yogi, Thomas M Primary Care Unavailable Michael, Yazid Admitting Unavailable Michael, Yazid Attending Unavailable Keven Kimbrough Unavailable Hoy, Thomas M Primary Care Unavailable Marisa, Jeramy M Admitting Unavailable Marisa, Jeramy M Attending Unavailable Tab Parkerothy Admitting Unavailable Gabino Parker Attending Unavailable Cristhian, Jaquan Shannon Primary Care Unavailable Bullimore, Trace E Attending Unavailable Cristhian, Jaquan Shannon Primary Care Unavailable Bullimore, Trace E Admitting Unavailable Keister, Claus A Admitting Unavailable Keister, Claus A Attending Unavailable Cristhian, Jaquan Shannon Primary Care Unavailable Hoy, Thomas M Primary Care Unavailable Keister, Lcaus A Admitting Unavailable Keister, Claus A Attending Unavailable Shaan Sabillon Admitting Unavailable SabillonShaan J Attending Unavailable Hoy Thomas M Primary Care Unavailable Allergies Allergy Classification Reported Allergen(s) Allergy Type Date of Onset Reaction(s) Facility NSAIDs (1 source) NSAIDs; Translations: [NSAIDS (NON-STEROIDAL ANTI-INFLAMMATOR Y DRUG)] Drug Allergy 01-30-20 [facility] Repository Opioid Agonists (8 sources) Codeine; Translations: [CODEINE] Drug Allergy 10-04-19 20 GI Upset [facility] Other [place] Repository (5 sources) Codeine And Related Propensity to adverse reactions to drug 07-08-19 14 Other (See Comments), Nausea And Vomiting [facility] (20 sources) Codeine; Translations: [codeine] Drug Allergy 10-04-19 20 GI Upset, Nausea/vomitin g [facility] (3 sources) Propofol Drug Allergy 06-19-19 22 Other: See Comments [facility] (20 sources) Adhesive Tape-Silicones; Translations: [ADHESIVE TAPE-SILICONES] Drug Intolerance 02-07-20 20 Intolerance [facility] (2 sources) Morphine And Related Propensity to adverse reactions to drug 07-08-19 14 Other (See Comments), Nausea And Vomiting [facility] (7 sources) Codeine Drug Allergy vomiting [facility] [employer] Other (4 sources) Acetaminophen / oxyCODONE Drug Allergy anaphylaxis [facility] [employer] [employer] Other (20 sources) Non-steroidal anti-inflammator y agent; Translations: [NSAIDS (NON-STEROIDAL ANTI-INFLAMMATOR Y DRUG)] Propensity to adverse reactions to drug 01-30-20 Contraindicati on-Medical Surgical, Nausea/vomitin g [facility] Work Phone: (1 source) Codeine Drug Allergy 07-08-19 14 [facility] Repository (1 source) Anastia Drug allergy (disorder) [facility] (15 sources) Non-steroidal anti-inflammator y agent; Translations: [NSAIDs] Drug allergy Unknown (qualifier value) [facility] (2 sources) Acetaminophen; Translations: [acetaminophen] Drug Allergy 04-06-19 anaphylaxis [facility] (8 sources) oxyCODONE; Translations: [oxycodone] Drug Allergy 04-06-19 anaphylaxis [facility] (6 sources) NSAIDS (Non-Steroidal Anti-Inflamma; Translations: [NSAIDS (Non-Steroidal Anti-Inflamma] Propensity to adverse reactions 07-16-19 24 d/t surgery [facility] (1 source) Codeine Drug Allergy 08-21-19 [facility] Repository Medications Current Medications Medication Drug Class(es) Dates Sig (Normalized) Sig (Original) minipill Birthcontrol (2 sources) Start: 03-07-2018 minipill Birthcontrol minipill Birthcontrol, Daily Start Date: 03/07/18 Status: Ordered acetaminophen 325 mg / butalbital 50 mg / caffeine 40 mg oral tablet (13 sources) Barbiturate, Central Nervous System Stimulant, Methylxanthine [...] tab(s), Oral, BID, 30 tab(s), Refill(s) 0, [facility]/pharmacy #[id number], 167.2, cm, 05/05/22 [...] Active Start: 03-08-2023 take 2 tablets by [facility] every four hours as needed oxyCODONE-acetaminophen (Percocet) [...] for 3 day(s), 10 tab(s), Refill(s) 0, [facility]/pharmacy #[id number], 168, cm, 10/19/22 8:44:00 EDT, Height/Length Dosing, 85.6, kg, 10/19/22 8:44:00 EDT, Weight Dosing Start Date: 10/19/22 Stop Date: 10/22/22 Status: Ordered Start: 06-07-2022 acetaminophen- oxycodone 325 mg-5 mg Tab 1 tab(s), Oral, q4hr for pain, 12 tab(s), Refill(s) 0, [facility]/pharmacy #[id number], 168, cm, 06/07/22 [...] day(s), # 28 tab(s), Refills(s) 0, Pharmacy: [facility]/pharmacy #[id number], 168, cm, 06/17/22 [...] 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 [id number] 200 actuat albuterol 0.09 mg/actuat metered dose [...] puff(s), Inhalation, q6hr, 18 gm, Refill(s) 3, [facility]/pharmacy #[id number], 167, cm, 05/17/23 14:25:00 EDT, Height/Length Dosing, 81, kg, 05/17/23 14:25:00 EDT, Weight Dosing Start Date: 05/31/23 Status: Ordered Start: 12-30-2022 take 2 puff(s) by in halation every six hours Albuterol (Eqv-Ventolin HFA) 90 mcg/inh inhalation aerosol 2 puff(s), Inhalation, q6hr, 18 gm, Refill(s) 0, [facility]/pharmacy #[id number], 168, cm, 12/29/22 15:01:00 EST, Height/Length [...] day(s), # 6 tab(s), Refills(s) 0, Pharmacy: [facility]/pharmacy #[id number], 168, cm, 12/29/22 [...] on above: Take 2 tablets by mo [facility] three times a day as needed [...] day(s), # 21 cap(s), Refills(s) 0, Pharmacy: [facility]/pharmacy #[id number], 168, cm, 12/29/22 [...] 1:00am Start: 02-13-2023 take 1 tablet by [facility] twice daily Buspirone (Buspar) 15 mg [...] day(s), # 20 tab(s), Refills(s) 0, Pharmacy: [facility]/pharmacy #[id number], 168, cm, 06/17/22 [...] day(s), # 28 tab(s), Refills(s) 0, Pharmacy: [facility]/pharmacy #[id number], 167, cm, 05/06/23 15:49:00 EDT, Height/Length Dosing, 82.7, kg, 05/06/23 15:49:00 EDT, Weight Dosing Start Date: 05/06/23 Stop Date: 05/13/23 Status: Ordered Start: 04-02-2023 take 2 capsules by m outh four times daily Bentyl 10 mg Cap 20 mg = 2 cap(s), Oral, QID, # 20 cap(s), Refills(s) 0, [id number], cm, 04/02/23 11:01:00 EST, Height/Length Dosing, 82.7, kg, 04/02/23 11:01:00 EST, Weight Dosing Start Date: 04/02/23 Status: Ordered Start: 06-05-2022 End: 06-15-2022 take 1 capsule by mouth four times daily Bentyl 10 mg Cap 10 mg = 1 cap(s), Oral, QID, X 10 day(s), # 40 cap(s), Refills(s) 0, Pharmacy: [facility]/pharmacy #[id number], 167.2, cm, 05/05/22 13:30:00 EDT, Height/Length Dosing, 84.5, kg, 05/05/22 13:30:00 EDT, Weight Dosing Start Date: 06/05/22 Stop Date: 06/15/22 Status: Ordered Start: 12-20-2020 take 2 capsules by m outh four times daily Bentyl 10 mg Cap 20 mg = 2 cap(s), Oral, QID, # 20 cap(s), Refills(s) 0, Pharmacy: [facility]/pharmacy #[id number], 167, cm, 12/20/20 [...] BID, # 20 cap(s), Refills(s) 0, Pharmacy: [facility]/pharmacy #[id number], 167.2, cm, 05/05/22 [...] Ordered Start: 10-14-2019 take 1 capsule by [facility] every twelve hours DULoxetine HCl 60 MG 1 capsule Orally Twice a day for 90 days Sep, Active take 1 capsule by [facility] twice daily DULoxetine (CYMBALTA) 30 MG [...] Start: 01-20-2021 take 1 capsule by mo [facility] once daily, then take 1 capsule by mouth twice daily, then take 1 capsule by mouth three times daily gabapentin 300 mg Cap See Instructions, 1 cap(s) Oral daily x 1 day, 1 tab BID x 1 day, then 1 tab TID thereafter., # 90 cap(s), Refills(s) 0, Pharmacy: [facility]/pharmacy #[id number], 167, cm, 01/16/21 [...] mouth once daily. 90 tablet 0 06/09/2023 Active Start: 05-03-2023 take 1 tablet by [facility] once daily levothyroxine 75 mcg (0.075 mg) Tab 75 mcg = 1 tab(s), Oral, Daily, # 60 tab(s), Refills(s) 1, [id number], cm, 04/02/23 11:01:00 EST, Height/Length Dosing, 82.7, kg, 04/02/23 11:01:00 EST, Weight Dosing Start Date: 05/03/23 Status: Ordered Start: 03-03-2023 take 1 tablet by [facility] once daily levothyroxine 100 mcg (0.1 mg) Tab 100 mcg = 1 tab(s), Oral, Daily, # 90 tab(s), Refills(s) 0, Pharmacy: [facility], 168, cm, 02/03/23 14:52:00 EST, Height/Length Dosing, 85.5, kg, 02/03/23 14:52:00 EST, Weight Dosing Start Date: 03/03/23 Status: Ordered Start: 10-05-2022 take 1 tablet by [facility] once daily levothyroxine 100 mcg (0.1 mg) Tab 100 mcg = 1 tab(s), Oral, Daily, # 30 tab(s), Refills(s) 1, Pharmacy: [facility]/pharmacy #[id number], 168, cm, 07/29/22 8:44:00 EDT, Height/Length Dosing, 81, kg, 07/29/22 8:44:00 EDT, Weight Dosing Start Date: 10/05/22 Status: Ordered Start: 07-22-2022 take 1 tablet by [facility] th once daily levothyroxine 125 mcg (0.125 mg) Tab See Instructions, TAKE 1 TABLET BY MOUTH EVERY DAY, # 30 tab(s), Refills(s) 2, Pharmacy: [id number], 168, cm, 07/20/22 10:48:00 EDT, Height/Length Dosing, 81.1, kg, 07/20/22 10:48:00 EDT, Weight Dosing Start Date: 07/22/22 Status: Ordered Start: 04-23-2022 take 1 tablet by [facility] th once daily levothyroxine 125 mcg (0.125 mg) Tab 125 mcg = 1 tab(s), Oral, Daily, # 90 tab(s), Refills(s) 0, Pharmacy: [facility]/pharmacy #[id number], 167.6, cm, 04/15/21 [...] on above: Take 1 capsule by mo [facility] DAILY (6 AM). Take 1 capsule by mo [facility] daily at 6 am. liothyronine sodium 0.005 mg oral tablet (20 sources) l-Triiodothyronin e Start: 03-03-2023 take 1 tablet by mouth once daily liothyronine 5 mcg Tab 5 mcg, Oral, Daily, # 90 tab(s), Refills(s) 3, Pharmacy: [facility], 168, cm, 02/03/23 14:52:00 EST, Height/Length Dosing, 85.5, kg, 02/03/23 14:52:00 EST, Weight Dosing Start Date: 03/03/23 Status: Ordered Start: 11-25-2022 take 1 tablet by [facility] once daily liothyronine 5 mcg Tab 5 mcg, Oral, Daily, # 90 tab(s), Refills(s) 3, Pharmacy: [facility]/pharmacy #[id number], 168, cm, 11/25/22 11:03:00 EDT, Height/Length Dosing, 82.5, kg, 11/25/22 11:03:00 EDT, Weight Dosing Start Date: 11/25/22 Status: Ordered Start: 05-21-2022 take 1 tablet by [facility] once daily liothyronine 5 mcg Tab 5 mcg, Oral, Daily, # 90 tab(s), Refills(s) 1, Pharmacy: [facility]/pharmacy #[id number], 167.2, cm, 05/05/22 13:30:00 EDT, Height/Length Dosing, 84.5, kg, 05/05/22 13:30:00 EDT, Weight Dosing Start Date: 05/21/22 Status: Ordered Start: 09-11-2019 take 1 tablet by [facility] once daily liothyronine (CYTOMEL) 5 mcg tablet [...] dizziness, # 30 tab(s), Refills(s) 0, Pharmacy: [facility]/pharmacy #[id number], 168, cm, 06/10/22 10:57:00 EDT, Height/Length Dosing, 83.7, kg, 06/10/22 10:57:00 EDT, Weight Dosing Start Date: 06/10/22 Status: Ordered metFORMIN hydrochloride 1000 mg oral tablet (6 sources) Biguanide Start: 03-04-2018 take 1000 mg by mouth twice daily metformin 1,000 mg, Oral, BID, Refills(s) 0, Blood glucose Start Date: 03/04/18 Status: Ordered take 2 tablets by mo [facility] twice daily at mealtime metformin 500 [...] 0359 Start: 06-02-2023 [facility] Robaxin-750 oral tablet [...] day(s), # 21 tab(s), Refills(s) 0, [id number] 168, cm, 12/29/22 15:01:00 EST, Height/Length Dosing, 83.8, kg, 12/29/22 15:01:00 EST, Weight Dosing Start Date: 12/29/22 Stop Date: 01/04/23 Status: Ordered Start: 07-20-2022 End: 07-26-2022 Medrol 4 mg Tab = 1 packet(s ), Oral, As Directed, as directed on package labeling, X 6 day(s), # 21 tab(s), Refills(s) 0, [id number] 168, cm, 07/20/22 10:48:00 EDT, Height/Length [...] labeling, # 21 tab(s), Refills(s) 0, Pharmacy: [facility]/pharmacy #[id number], 167, cm, 04/02/23 [...] day(s), # 30 tab(s), Refills(s) 0, Pharmacy: [facility]/pharmacy #[id number], 168, cm, 06/17/22 10:54:00 EDT, Height/Length Dosing, 83.1, kg, 06/17/22 10:54:00 EDT, Weight Dosing Start Date: 06/17/22 Stop Date: 06/27/22 Status: Ordered midodrine hydrochloride 5 mg oral tablet (13 sources) alpha-Adrenergic Agonist Start: 08-06-2023 take 1 [...] mirabegron 25 mg extended release oral tablet (20 sources) beta3-Adrenergic Agonist Start: 07-06-2023 take 1 [...] 1:00am Start: 11-10-2022 take 2 tablets by [facility] once daily at bedtime mirtazapine (Remeron) 15 [...] TABLET BY ROBINSON TH DAILY AT BEDTIME [facility] Prescription (1 source) Start: 06-11-19 [facility] Prescription Start Date: 06/11/23 Status: Ordered 1 [...] 0 Start Date: 05/05/22 Status: Ordered Naltrexone (18 sources) Opioid Antagonist Start: 08-25-2023 naltrexone 1 .5 mg capsule (CPD) Indications: Gastroesophageal reflux disease without esophagitis , Neuralgia and neuritis , Median arcuate ligament syndrome (HCC) , Chronic abdominal pain , S/P gastric bypass Take 1 capsule daily at 9 pm. May increase to 2 capsules if no relief after 2 weeks. Do not use calcium as a pot filler preparation. If insomnia or vivid dreams [...] weeks. Do not use calcium as a pot filler preparation. If insomnia or vivid dreams [...] weeks. Do not use calcium as a pot filler preparation. If insomnia or vivid dreams [...] weeks. Do not use calcium as a pot filler preparation. If insomnia or vivid dreams [...] Run for 18 hours, off 6 hours. [id number] mL 3 05/29/2023 06/09/2023 Discontinued Start: 05-29-2023 End: 08-27-2023 nutritional supplements (NUT PIPO 2.0) 0.08 gram-2 kcal/mL liqd 45 mL/hr by FEEDING TUBE route once daily. Run for 18 hours, off 6 hours. 09291 mL 3 05/29/2023 08/27/2023 Active Start: 05-28-2023 End: 08-26-2023 nutritional supplements (NUT PIPO 2.0) 0.08 gram-2 kcal/mL liqd 45 mL/hr by FEEDING TUBE route once daily. Run for 18 hours, off 6 hours. 63330 mL 3 05/28/2023 08/26/2023 Active Comment on above: 45 mL/hr by FEEDING TUBE route once daily. Run for 18 hours, off 6 hours. nystatin 410556 unt/ml oral suspension (1 source) Polyene Antifungal [...] Start: 10-19-2022 take 1 capsule by mo [facility] once daily omeprazole (PRILOSEC) 20 mg [...] needed ondansetron (Zofran) injection 4 mg Start: 01-19-2024 take 1 tablet by robinson th every [...] q6hr, # 12 tab(s), Refills(s) 0, Pharmacy: [facility]/pharmacy #[id number], 168, cm, 06/07/22 10:23:00 EDT, Height/Length Dosing, 83, kg, 06/07/22 10:23:00 EDT, Weight Dosing Start Date: 06/07/22 Status: Ordered Start: 07-27-2021 End: 07-27-2021 ondansetron (ZOFRAN) injecti on 4 mg Start: 12-28-2020 take 1 tablet by robinson th three times daily Zofran ODT 4 mg Tab 4 mg = 1 tab(s), Oral, TID, # 10 tab(s), Refills(s) 0, [id number] 167, cm, 12/20/20 9:30:00 [...] pain, # 12 cap(s), Refills(s) 0, Pharmacy: [facility]/pharmacy #[id number], 167, cm, 05/12/23 9:37:00 EDT, Height/Length Dosing, 79.8, kg, 05/12/23 9:37:00 EDT, Weight Dosing Start Date: 05/14/23 Status: Ordered Start: 05-09-2023 End: 05-12-2023 take 1 tablet by mouth every six hours oxyCODONE 5 mg Tab 5 mg = 1 tab(s), Oral, q6hr, X 3 day(s), # 10 tab(s), Refills(s) 0, [id number] 167, cm, 05/09/23 11:51:00 EDT, Height/Length [...] up to 5 doses. polyethylene glycol 3350 53254 mg powder for oral solution (20 sources) [...] Start: 06-23-2022 End: 06-09-2023 polyethylene glycol 3350 (WA RALAX) 17 gram/dose powder Take 17 g [...] Nausea/Vomiting, # 6 EA, Refills(s) 0, [id number] 167, cm, 05/06/23 15:49:00 EDT, Height/Length [...] TID, # 15 tab(s), Refills(s) 0, [id number] 168, cm, 10/20/22 8:21:00 EDT, Height/Length Dosing, 85.6, kg, 10/20/22 8:21:00 EDT, Weight Dosing Start Date: 10/20/22 Status: Ordered Start: 06-10-2022 take 1 tablet by robinson th every four hours promethazine 12.5 mg oral tablet 12.5 mg = 1 tab(s), Oral, q4hr, # 60 tab(s), Refills(s) 0, Pharmacy: [facility]/pharmacy #[id number], 168, cm, 06/10/22 12:37:00 EDT, Height/Length Dosing, 83.7, kg, 06/10/22 12:37:00 EDT, Weight Dosing Start Date: 06/10/22 Status: Ordered Start: 11-05-2021 take 1 tablet by robinson th every six hours as needed for nausea promethazine 25 mg Tab 25 mg = 1 tab(s), Oral, q6hr, PRN as needed for nausea/vomiting, # 12 tab(s), Refills(s) 0, Pharmacy: [facility]/pharmacy #[id number], 167, cm, 12/20/20 [...] Nausea, # 20 tab(s), Refills(s) 0, Pharmacy: [facility]/pharmacy #[id number], 167, cm, 05/12/23 9:37:00 EDT, Height/Length Dosing, 79.8, kg, 05/12/23 9:37:00 EDT, Weight Dosing Start Date: 05/14/23 Status: Ordered Start: 04-02-2023 End: 04-16-2023 sucralfate 1 g/10 mL Oral Nance sp 10 mL 1 gm = 10 mL, Oral, QIDACHS, X 14 day(s), # 560 mL, Refills(s) 0, Pharmacy: [facility]/pharmacy #[id number], 167, cm, 04/02/23 [...] QID, # 280 mL, Refills(s) 0, Pharmacy: [facility]/pharmacy #[id number], 168, cm, 10/19/22 [...] Daily, # 10 cap(s), Refills(s) 0, Pharmacy: [facility]/pharmacy #[id number], 168, cm, 06/17/22 [...] Nausea/Vomiting, # 12 tab(s), Refills(s) 0, Pharmacy: [facility]/pharmacy #[id number], 167, cm, 05/06/23 [...] 08-30-2021 bupivacaine-EPINEP Hrine PF (MARCAINE-w/EPINEP HRINE) 0.5% -1:[id number] injection 10 mL calcium chloride 0.001 meq/ml [...] Refill(s) 0, Take 1 puff 2x daily., [facility]/pharmacy #[id number], 168, cm, 12/29/22 [...] kcal/mL liqd TF for PEG-J Rate: 45cc/hr 14441 mL 1 05/26/2023 06/09/2023 Discontinued Start: 05-26-2023 nutritional nance pplements (NUTREN 1.5) 0.07 gram-1.5 kcal/mL liqd TF for PEG-J Rate: 45cc/hr 67702 mL 1 05/26/2023 Active Start: 05-21-2023 End: [...] Daily, # 30 tab(s), Refills(s) 0, Pharmacy: [facility]/pharmacy #[id number], 167, cm, 05/12/23 [...] sodium chloride 0.9% 50 mL IV sennosides, mcfp 8.6 mg oral tablet (10 sources) Start: [...] on above: Take 2 tablets by mo [facility] four times daily as needed. solifenacin [...] 11-16-2022 take 1 tablet by [facility] every eight hours as needed for [...] pain, # 30 tab(s), Refills(s) 0, Pharmacy: [facility]/pharmacy #[id number], 168, cm, 06/26/22 [...] Acute and unspecified renal failure (3 sources) Ojmzc-yc-yurhhku renal failure; Translations: [Acute kidney failure, unspecified] Onset: 4 06-29-2023 Episodic Anxiety disorders (20 sources) Posttraumatic stress disorder; Translations: [Reaction to severe stress, unspecified] Onset: 0 11-21-2019 Chronic Anxiety disorders (20 sources) Panic disorder without agoraphobia; Translations: [Panic disorder [episodic paroxysmal anxiety]] Onset: 0 Resolved: 2 04-08-2020 Chronic Aspiration pneumonitis; food/vomitus (17 sources) Pneumonitis due to inhalation of vomitus; [...] 4 Chronic Other aftercare (1 source) Other 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 (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) 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; Translations: [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] Onset: 3 Episodic Other [...] (HCC)] Onset: 3 Chronic Other circulatory disease (13 sources) Idiopathic hypotension; Translations: [Idiopathic hypotension] Onset: [...] 3 Resolved: 4 Episodic Other gastrointestinal disorders (13 sources) Bariatric [...] caused by tuberculosis or sexually transmitted disease) (15 sources) Pneumonia, unspecified organism; Translations: [Community acquired [...] damage to nail, initial encounter] Episodic Syncope (19 sources) Syncope and collapse; Translations: [Syncope and [...] 10-06-2019 10-06-2019 Episodic Deficiency and other anemia (20 sources) Iron deficiency anemia; Translations: [Iron deficiency [...] Range Facil ity CNNURSEon 08-30-2023 CNNURSE Normal [facility] CNNURSEon 08-26-2023 CNNURSE Normal [facility] EGD Study observation Narrat maribell 08-26-2023 A31 Gastrointestinal Endoscopy Patient Name: Abbey Garcia Procedure Date: 08/26/2023 3:47 PM Date of : 1990 Admit Type: Outpatient Age: 33 Room: [place] [address] Gender: Female Note Status: Finalized Attending MD: Britt Cross MD, [id number] Procedure: Small bowel enteroscopy Indications: Heartburn Providers: [...] was characterized by healthy appearing mucosa. The gnpqlpyq-sb-vcdivdr limb was examined. The examined jejunum was [...] loss: none. Procedure Code(s): --- Professional --- 05711, Esophagogastroduode noscopy, flexible, transoral; diagnostic, including collection of specimen(s) by brushing or washing, when performed (separate procedure) CPT copyright 2020 [employer]. All rights reserved. The codes documented in this report are preliminary and upon cosmetic sales review may be revised to meet current [...] Note Initiated On: 08/26/2023 3:47 PM PROVATION [facility] Radiology Study observation (narrative) [facility] NURSING PROGon 08-26-2023 NURSING PROG Normal [facility] NURSING PROG Normal [facility] NURSING PROG Normal [facility] NURSING PROG Normal [facility] Small bowel enteroscopyon Small bowel enteroscopy Normal [facility] CNPNon 08-23-2023 CNPN Normal [facility] Activated partial thrombopla stin time (aPTT) in platelet poor plasma by coagulation aOrdered By: Claus Obrien on 08-21-2023 aPTT Coag (PPP) [Time] 28.4 s 25.1-36.5 [facility] Comment on above: A hematocrit value g reater than 55% may lead to inaccurate results in coagulation testing. Patients having hematocrit values >55% require a special collection tube for coagulation studies. Please contact the laboratory at [phone] for redraw instructions. Alanine aminotransferase [En zymatic activity/volume] in Serum or PlasmaOrdered By: Claus Obrien on 08-21-2023 ALT [Catalytic activity/Vol] 22 U/L Normal 7-52 [facility] Comment on above: Performed By: #### A CORY, [facility], CUU #### [facility] [address] [place] [address] [place] Albumin [Mass/volume] in Ser um or Plasma by Bromocresol green (BCG) dye binding methoOrdered By: Claus Obrien on 08-21-2023 Albumin BCG dye [Mass/Vol] 3.9 g/dL 3.5-5.7 [facility] Alkaline phosphatase [Enzyma tic activity/volume] in Serum or PlasmaOrdered By: Claus Obrien on 08-21-2023 ALP [Catalytic activity/Vol] 51 U/L Normal 34-104 [facility] Comment on above: Performed By: #### A CORY, [facility], CUU #### [facility] [address] [place] [id number] [place] Aspartate aminotransferase [ Enzymatic activity/volume] in Serum or PlasmaOrdered By: Claus Obrien on 08-21-2023 AST [Catalytic activity/Vol] 35 U/L Normal 13-39 [facility] Comment on above: Performed By: #### A DDFLORECITA, BRITTANIECG, CUU #### [address] Automated basophil %Ordered By: Claus Obrien on 08-21-2023 Basophils/100 WBC (Bld) 1.0 % Normal . [facility] Comment on above: Performed By: #### H EPATIC, MG, LIPASE, CMP, CBC #### [address] Automated basophil countOrde red By: Claus Obrien on 08-21-2023 Basophils (Bld) [#/Vol] 0.0 10*3/uL Normal 0.0-0.2 [facility] Comment on above: Result Comment: PERF ORMED BY: [place] [address] PATHOLOGIST FINISHING FRAME RUNNER BAUTISTA BAKER M.D. Performed By: #### H EPATIC, MG, LIPASE, CMP, CBC #### [address] Automated blood monocyte cou ntOrdered By: Claus Obrien on 08-21-2023 Monocytes (Bld) [#/Vol] 0.3 10*3/uL Normal 0.0-0.8 [facility] Comment on above: Performed By: #### H EPATIC, MG, LIPASE, CMP, CBC #### [address] Automated eosinophil %Ordere d By: Claus Obrien on 08-21-2023 Eosinophils/100 WBC (Bld) 2.4 % Normal . [facility] Comment on above: Performed By: #### H EPATIC, MG, LIPASE, CMP, CBC #### [address] Automated eosinophil countOr dered By: Claus Obrien on 08-21-2023 Eosinophils (Bld) [#/Vol] 0.1 10*3/uL Normal 0.0-0.45 [facility] Comment on above: Performed By: #### H EPATIC, MG, LIPASE, CMP, CBC #### [address] Automated monocyte %Ordered By: Claus Obrien on 08-21-2023 Monocytes/100 WBC (Bld) 8.4 % Normal . [facility] Comment on above: Performed By: #### H EPATIC, MG, LIPASE, CMP, CBC #### [address] Automated neutrophil %Ordere d By: Claus Obrien on 08-21-2023 Neutrophils/100 WBC (Bld) 58.0 % Normal . [facility] Comment on above: Performed By: #### H EPATIC, MG, LIPASE, CMP, CBC #### [address] Basic Metabolic Panelon Creatinine Clr Calc Pharmacy 115.16 Normal [facility] Comment on above: Performed By: #### A DDONUAPLUS, UHCG, CUU #### [address] GFR/1.73 sq M.predicted MDRD (S/P/Bld) [Vol rate/Area] mL/min/{1.73_m2} Normal [facility] Comment on above: Performed By: #### A DDONUAPLUS, UHCG, CUU #### [address] Bilirubin Test strip Ql (U)O rdered By: Claus Obrien on 08-21-2023 Bilirubin Ql (U) Negative Negative [facility] Bilirubin.direct [Mass/volum e] in Serum or PlasmaOrdered By: Claus Obrien on 08-21-2023 Bilirubin.direct [Mass/Vol] 0.10 mg/dL 0.03-0.18 [facility] Bilirubin.total [Mass/volume ] in Serum or PlasmaOrdered By: Claus Obrien on 08-21-2023 Bilirubin [Mass/Vol] 0.3 mg/dL Normal 0.3-1.0 [facility] Comment on above: Performed By: #### A MALLORIEUAJESSICA, [facility], CUU #### [facility] [address] abdomen pelvis w conon CT abdomen pelvis w con [facility] [address] [place] [address] [place] [address] CT Scan Report Signed Patient: Abbey Garcia MR#: [id number] : 1990 Acct:[id number] Age/Sex: 33 / F ADM Date: 08/21/23 Loc: ER Room: Type: [facility] ER Attending Dr: Copies to: Claus [...] Maricruz Hutchinson M.D.08/21/2023 12:03 PM Dictation Location: [place] [address] Transcribed By: [facility] 08/21/23 1203 Dictated By: Maricruz Hutchinson MD 08/21/23 1157 Signed By: 08/21/23 1203 Normal [facility] Calcium [Mass/volume] in Ser um or PlasmaOrdered By: Claus Obrien on 08-21-2023 Calcium [Mass/Vol] 8.4 mg/dL Low 8.6-10.3 [facility] Comment on above: Performed By: #### A MALLORIEUAJESSICA, [facility], [facility] #### [facility] [address] [place] [address] [place] Carbon dioxide, total [Moles /volume] in Serum or PlasmaOrdered By: Claus Obrien on 08-21-2023 CO2 [Moles/Vol] 21.7 mmol/L Normal 21.0-31.0 [facility] Comment on above: Performed By: #### A DDONUAJESSICA, CG, CUU #### [facility] [address] [place] [phone] [place] Chloride [Moles/volume] in S elder or PlasmaOrdered By: Claus Obrien on 08-21-2023 Chloride [Moles/Vol] 109 mmol/L High 98-107 [facility] Comment on above: Performed By: #### A MALLORIEUAJESSICA, [facility] #### [facility] [address] [place] [phone] [place] Choriogonadotropin.beta subu nit [Units/volume] in Serum or PlasmaOrdered By: Claus Obrien on 08-21-2023 HCG.beta subunit Qn Negative [facility] Color of Urine by AutoOrdere d By: Claus Obrien on 08-21-2023 Color (U) Colorless Normal Yellow [facility] Comment on above: Order Comment: Name Collection Type:: Clean-Voided Midstream Performed By: #### A CORY, JOSESITO, CUU #### [address] Complete Blood Count Auto Di ffon 08-21-2023 Mean Corpuscular HGB Conc 33.6 g/dL Normal 32.0-35.0 [facility] Comment on above: Performed By: #### H EPATIC, MG, LIPASE, CMP, CBC #### [address] Monocytes/100 WBC (Bld) 14.35 % Normal 0.00-20.00 [facility] Comment on above: Performed By: #### H EPATIC, MG, LIPASE, CMP, CBC #### [address] NRBC% 0.1 /100{WBC} Normal 0-0.5 [facility] Comment on above: Performed By: #### H EPATIC, MG, LIPASE, CMP, CBC #### [address] Creatinine [Mass/volume] in Serum or PlasmaOrdered By: Claus Obrien on 08-21-2023 Creatinine [Mass/Vol] 0.73 mg/dL Normal 0.60-1.20 [facility] Comment on above: Performed By: #### A CORY, [place], CUU #### [address] Erythrocyte distribution wid th [Ratio] by Automated countOrdered By: Claus Obrien on 08-21-2023 Erythrocyte distribution width (RBC) [Ratio] 13.7 % Normal 11.9-15.3 [facility] Comment on above: Performed By: #### H EPATIC, MG, LIPASE, CMP, CBC #### [address] Erythrocytes [#/volume] in B lood by Automated countOrdered By: Claus Obrien on 08-21-2023 RBC (Bld) [#/Vol] 3.89 10*6/uL Normal 3.60-5.00 [facility] Comment on above: Performed By: #### H EPATIC, MG, LIPASE, CMP, CBC #### [facility] [address] [place] [phone] [place] Glucose [Mass/volume] in Ser um or PlasmaOrdered By: Claus Obrien on 08-21-2023 Glucose [Mass/Vol] 83 mg/dL Normal 70-100 [facility] Comment on above: ADA recommended refe rence rangeRandom Glucose Reference Range is dependent on time and content of last meal. Glucose of more than 200 mg/dL in a nonstressed, ambulatory subject supports the diagnosis of Diabetes Mellitus. Result Comment: [place] om Glucose Reference Range is dependent on time and content of last meal. Glucose of more than 200 mg/dL in a nonstressed, ambulatory subject supports the diagnosis of Diabetes Mellitus. ADA recommended reference range Performed By: #### A DDONUAPLUS, ElroyG, CUU #### [facility] [address] [place] [phone] [place] Glucose [Mass/volume] in Uri ne by Test stripOrdered By: Claus Obrien on 08-21-2023 Glucose Test strip (U) [Mass/Vol] Normal mg/dL Normal [facility] HCG ( test) IA.rapi d Ql (U)Ordered By: Claus Obrien on 08-21-2023 HCG ( test) Ql (U) Negative [facility] HCG,Qualitative Serumon HCG,Qualitative Serum Negative Normal [facility] Comment on above: Result Comment: PERF ORMED BY: [place] [address] PATHOLOGIST FINISHING FRAME RUNNER BAUTISTA BAKER M.D. Performed By: #### A DDONUAPLUS, UHCG, CUU #### [facility] [address] [place] [phone] [place] HCG,Urineon 08-21-2023 Beta HCG ( test) Ql (U) Negative Normal [facility] Comment on above: Order Comment: Name Collection Type:: Clean-Voided Midstream Result Comment: PERF ORMED BY: [place] [address] PATHOLOGIST FINISHING FRAME RUNNER BAUTISTA BAKER M.D. Performed By: #### A DDBRITTANIE BERNABECG, CUU #### [address] Hematocrit [Volume Fraction] of Blood by Automated countOrdered By: Claus Obrien on 08-21-2023 Hematocrit (Bld) [Volume fraction] 33.5 % Low 34.0-46.4 [facility] Comment on above: Performed By: #### H EPATIC, MG, LIPASE, CMP, CBC #### [address] Hemoglobin Test strip Ql (U) Ordered By: Claus Obrien on 08-21-2023 Hemoglobin Ql (U) Negative Negative [facility] Hemoglobin [Mass/volume] in BloodOrdered By: Claus Obrien on 08-21-2023 Hemoglobin (Bld) [Mass/Vol] 11.3 g/dL Low 11.8-15.4 [facility] Comment on above: Performed By: #### H EPATIC, MG, LIPASE, CMP, CBC #### [address] Hepatic Panelon 08-21-2023 Albumin [Mass/Vol] 3.9 g/dL Normal 3.5-5.7 [facility] Comment on above: Performed By: #### A DDONUAJESSICA, BRITTANIECG, CUU #### [address] Bilirubin,Indirect 0.2 mg/dL Normal [facility] Comment on above: Performed By: #### A DDONUAJESSICA, BRITTANIECG, CUU #### [address] Bilirubin.indirect [Mass/Vol] 0.10 mg/dL Normal 0.03-0.18 [facility] Comment on above: Performed By: #### A DDONUAJESSICA, UHCG, CUU #### [address] [place] [address] [place] INR in Platelet poor plasma by Coagulation assayOrdered By: Claus Obrien on 08-21-2023 INR Coag (PPP) [Relative time] 1.1 {INR} Normal [facility] Comment on above: INR Therapeutic Rang [...] By: #### A DDONUAPLUS, UHCG, CUU #### [facility] [address] [place] [phone] [place] Ketones [Presence] in Urine by Test stripOrdered By: Claus Obrien on 08-21-2023 Ketones Ql (U) Negative Normal Negative [facility] Comment on above: Order Comment: Name Collection Type:: Clean-Voided Midstream Performed By: #### A DDONUAPLUS, UHCG, CUU #### [facility] [address] [place] [address] [place] Leukocyte esterase [Presence ] in Urine by Test stripOrdered By: Claus Obrien on 08-21-2023 Leukocyte esterase Test strip Ql (U) Negative Normal Negative [facility] Comment on above: Order Comment: Name Collection Type:: Clean-Voided Midstream Performed By: #### A DDONUAPLUS, UHCG, CUU #### [facility] [address] [place] [address] [place] Leukocytes [#/volume] correc darvin for nucleated erythrocytes in Blood by Automated counOrdered By: Claus Obrien on 08-21-2023 WBC corrected for nucl RBC Auto (Bld) [#/Vol] 3.9 10*3/uL 3.8-11.6 [facility] Leukocytes [#/volume] in Blo od by Automated countOrdered By: Claus Obrien on 08-21-2023 WBC (Bld) [#/Vol] 3.9 10*3/uL Normal 3.8-11.6 [facility] Comment on above: Performed By: #### H EPATIC, MG, LIPASE, CMP, CBC #### [address] Lipase [Enzymatic activity/v olume] in Serum or PlasmaOrdered By: Claus Obrien on 08-21-2023 Lipase [Catalytic activity/Vol] 43.0 U/L Normal 11.0-82.0 [facility] Comment on above: Performed By: #### A DDONUAPLUS, CG, CUU #### [place] [address] [place] Lymphocytes [#/volume] in Bl ood by Automated countOrdered By: Claus Obrien on 08-21-2023 Lymphocytes (Bld) [#/Vol] 1.2 10*3/uL Normal 1.00-4.8 [facility] Comment on above: Performed By: #### H EPATIC, MG, LIPASE, CMP, CBC #### [place] [address] [place] Lymphocytes/100 leukocytes i n Blood by Automated countOrdered By: Claus Obrien on 08-21-2023 Lymphocytes/100 WBC (Bld) 30.2 % Normal . [facility] Comment on above: Performed By: #### H EPATIC, MG, LIPASE, CMP, CBC #### [place] [address] [place] MCH [Entitic mass] by Automa darvin countOrdered By: Claus Obrien on 08-21-2023 MCH (RBC) [Entitic mass] 29.0 pg Normal 24.7-34.3 [facility] Comment on above: Performed By: #### H EPATIC, MG, LIPASE, CMP, CBC #### [address] [place] [address] [place] MCHC Auto (RBC) [Mass/Vol]Or dered By: Claus Obrien on 08-21-2023 MCHC (RBC) [Mass/Vol] 33.6 g/dL 32.0-35.0 [facility] MCV [Entitic volume] by Auto mated countOrdered By: Claus Obrien on 08-21-2023 MCV (RBC) [Entitic vol] 86.2 fL Normal 80-100 [facility] Comment on above: Performed By: #### H EPATIC, MG, LIPASE, CMP, CBC #### [facility] [address] [place] [address] Monocyte distribution width [Entitic volume] in Blood by AutomatedOrdered By: Claus Obrien on 08-21-2023 Monocyte distribution width Auto (Bld) [Entitic vol] 14.35 % 0.00-20.00 [facility] Neutrophils [#/volume] in Bl ood by Automated countOrdered By: Claus Obrien on 08-21-2023 Neutrophils (Bld) [#/Vol] 2.3 10*3/uL Normal 1.8-7.7 [facility] Comment on above: Performed By: #### H EPATIC, MG, LIPASE, CMP, CBC #### [facility] [address] [place] [address] Nitrite Test strip Ql (U)Ord ered By: Claus Obrien on 08-21-2023 Nitrite Ql (U) Negative Negative [facility] No Panel InformationOrdered By: Claus Obrien on 08-21-2023 Estimated GFR (CKD-EPI) > 60.0 mL/Min [facility] Creatinine Clearance (Chem 115.16 [facility] Nucleated erythrocytes [Pres ence] in Blood by Automated countOrdered By: Claus Obrien on 08-21-2023 Nucleated RBC Auto Ql (Bld) 0.1 /100{WBC} 0-0.5 [facility] Partial Thromboplastin Timeo n 08-21-2023 aPTT Coag (Bld) [Time] 28.4 s Normal 25.1-36.5 [facility] Comment on above: Result Comment: A he matocrit value greater than 55% may lead to inaccurate results in coagulation testing. Patients having hematocrit values >55% require a special collection tube for coagulation studies. Please contact the laboratory at [phone] for redraw instructions. PERFORMED BY: [place] [address] PATHOLOGIST FINISHING FRAME RUNNER BAUTISTA BAKER M.D. Performed By: #### A DDONUAPLUS, CG, CUU #### [address] Platelet mean volume [Entiti c volume] in Blood by Automated countOrdered By: Claus Obrien on 08-21-2023 Platelet mean volume (Bld) [Entitic vol] 8.9 fL Normal 6.3-10.7 [facility] Comment on above: Performed By: #### H EPATIC, MG, LIPASE, CMP, CBC #### [address] Platelets [#/volume] in Bloo d by Automated countOrdered By: Claus Obrien on 08-21-2023 Platelets (Bld) [#/Vol] 208 10*3/uL Normal 150-450 [facility] Comment on above: Performed By: #### H EPATIC, MG, LIPASE, CMP, CBC #### [address] Potassium [Moles/volume] in Serum or PlasmaOrdered By: Claus Obrien on 08-21-2023 Potassium [Moles/Vol] 3.6 mmol/L Normal 3.5-5.1 [facility] Comment on above: Performed By: #### A DDONUAPLUS, UHCG, CUU #### [address] Protein Test strip (U) [Mass /Vol]Ordered By: Claus Obrien on 08-21-2023 Protein (U) [Mass/Vol] Negative Negative [facility] Protein [Mass/volume] in Ser um or PlasmaOrdered By: Claus Obrien on 08-21-2023 Protein [Mass/Vol] 6.4 g/dL Normal 6.4-8.9 [facility] Comment on above: Performed By: #### A ALIYAH RAYG, CUU #### [address] Prothrombin time (PT)Ordered By: Claus Obrien on 08-21-2023 PT Coag (PPP) [Time] 12.5 s Normal 9.0-12.9 [facility] Comment on above: A hematocrit value g reater than 55% may lead to inaccurate results in coagulation testing. Patients having hematocrit values >55% require a special collection tube for coagulation studies. Please contact the laboratory at [phone] for redraw instructions. Result Comment: A he matocrit value greater than 55% may lead to inaccurate results in coagulation testing. Patients having hematocrit values >55% require a special collection tube for coagulation studies. Please contact the laboratory at [phone] for redraw instructions. Performed By: #### A ALIYAH RAYG, CUU #### [address] Serum globulin measurement b y calculation (mass/volume)Ordered By: Claus Obrien on 08-21-2023 Globulin (S) [Mass/Vol] 2.5 g/dL [facility] Comment on above: Performed By: #### A BRITTANIE RAYCG, CUU #### [address] Serum or plasma albumin/glob ulin mass ratioOrdered By: Claus Obrien on 08-21-2023 Albumin/Globulin [Mass ratio] 1.6 {ratio} [facility] Comment on above: Performed By: #### A BRITTANIE RAYCG, CUU #### [address] Serum or plasma anion gap de terminationOrdered By: Claus Obrien on 08-21-2023 Anion gap [Moles/Vol] 8.9 mmol/L Normal 6.0-15.0 [facility] Comment on above: Performed By: #### A BRITTANIE RAYCG, CUU #### [address] Serum or plasma non-glucuron idated bilirubin measurement (mass/volume)Ordered By: Claus Obrien on 08-21-2023 Bilirubin.indirect [Mass/Vol] 0.2 mg/dL [facility] Sodium [Moles/volume] in Ser um or PlasmaOrdered By: Claus Obrien on 08-21-2023 Sodium [Moles/Vol] 136 mmol/L Normal 136-145 [facility] Comment on above: Performed By: #### A DDONUAPLUS, UHCG, CUU #### [address] Specific gravity Test strip (U) [Rel density]Ordered By: Claus Obrien on 08-21-2023 Specific gravity (U) [Rel density] 1.004 1.001-1.030 [facility] Urea nitrogen [Mass/volume] in Serum or PlasmaOrdered By: Claus Obrien on 08-21-2023 Urea nitrogen [Mass/Vol] 8 mg/dL Normal 7-25 [facility] Comment on above: Performed By: #### A DDONUAPLUS, UHCG, CUU #### [address] Urinalysison 08-21-2023 Bilirubin,Urine Negative Normal Negative [facility] Comment on above: Order Comment: Name Collection Type:: Clean-Voided Midstream Performed By: #### A DDONUAPLUS, UHCG, CUU #### [address] Glucose Ql (U) Normal Normal Normal [facility] Comment on above: Order Comment: Name Collection Type:: Clean-Voided Midstream Performed By: #### A DDONUAPLUS, UHCG, CUU #### [address] Nitrite,Urine Negative Normal Negative [facility] Comment on above: Order Comment: Name Collection Type:: Clean-Voided Midstream Performed By: #### A DDONUAPLUS, UHCG, CUU #### [address] Occult Blood,Urine Negative Normal Negative [facility] Comment on above: Order Comment: Name Collection Type:: Clean-Voided Midstream Performed By: #### A DDONUAPLUS, UHCG, CUU #### [place] [address] [place] Protein,Urine Negative Normal Negative [facility] Comment on above: Order Comment: Name Collection Type:: Clean-Voided Midstream Performed By: #### A DDONUAPLUS, UHCG, CUU #### [address] Specificy [place],Urine 1.004 Normal 1.001-1.030 [facility] Comment on above: Order Comment: Name Collection Type:: Clean-Voided Midstream Performed By: #### A DDONUAPLUS, UHCG, CUU #### [address] Urobilinogen,Urine Normal Normal Normal [facility] Comment on above: Order Comment: Name Collection Type:: Clean-Voided Midstream Performed By: #### A DDONUAPLUS, UHCG, CUU #### [address] Urine appearanceOrdered By: Claus Obrien on 08-21-2023 Appearance (U) Clear Normal Clear [facility] Comment on above: Order Comment: Name Collection Type:: Clean-Voided Midstream Performed By: #### A DDONUAPLUS, UHCG, CUU #### [address] Urobilinogen Test strip (U) [Mass/Vol]Ordered By: Claus Obrien on 08-21-2023 Urobilinogen (U) [Mass/Vol] Normal mg/dL Normal [facility] pH of Urine by Test stripOrd ered By: Claus Obrien on 08-21-2023 pH (U) 6.5 [pH] Normal 5.0-9.0 [facility] Comment on above: Order Comment: Name Collection Type:: Clean-Voided Midstream Performed By: #### A JOSESITO RAY, CUU #### [facility] [address] [place] [address] [place] CNPNon 08-18-2023 CNPN Normal [facility] Alanine aminotransferase [En zymatic activity/volume] in Serum or PlasmaOrdered By: Shaan Sabillon on 08-14-2023 ALT [Catalytic activity/Vol] 21 U/L Normal 7-52 [facility] Comment on above: Performed By: #### A JOSESITO RAY, CUU #### [address] Albumin [Mass/volume] in Ser um or Plasma by Bromocresol green (BCG) dye binding methoOrdered By: Shaan Sabillon on 08-14-2023 Albumin BCG dye [Mass/Vol] 4.2 g/dL 3.5-5.7 [facility] Alkaline phosphatase [Enzyma tic activity/volume] in Serum or PlasmaOrdered By: Shaan Sabillon on 08-14-2023 ALP [Catalytic activity/Vol] 59 U/L Normal 34-104 [facility] Comment on above: Performed By: #### A CORY ELIS, CUU #### [address] Aspartate aminotransferase [ Enzymatic activity/volume] in Serum or PlasmaOrdered By: Shaan Sabillon on 08-14-2023 AST [Catalytic activity/Vol] 32 U/L Normal 13-39 [facility] Comment on above: Performed By: #### A JOSESITO RAY, CUU #### [address] Automated basophil %Ordered By: Shaan Sabillon on 08-14-2023 Basophils/100 WBC (Bld) 0.6 % Normal . [facility] Comment on above: Performed By: #### A JOSESITO RAY, CUU #### [facility] [address] [place] [address] Automated basophil countOrde red By: Shaan Sabillon on 08-14-2023 Basophils (Bld) [#/Vol] 0.0 10*3/uL Normal 0.0-0.2 [facility] Comment on above: Result Comment: PERF ORMED BY: [place] [address] PATHOLOGIST FINISHING FRAME RUNNER BAUTISTA BAKER M.D. Performed By: #### A CORY [facility], CUU #### [address] Automated blood monocyte cou ntOrdered By: Shaan Sabillon on 08-14-2023 Monocytes (Bld) [#/Vol] 0.5 10*3/uL Normal 0.0-0.8 [facility] Comment on above: Performed By: #### A CORY ELIS, CUU #### [address] Automated eosinophil %Ordere d By: Shaan Sabillon on 08-14-2023 Eosinophils/100 WBC (Bld) 0.7 % Normal . [facility] Comment on above: Performed By: #### A CORY ELIS, CUU #### [facility] [address] [place] [address] Automated eosinophil countOr dered By: Shaan Sabillon on 08-14-2023 Eosinophils (Bld) [#/Vol] 0.0 10*3/uL Normal 0.0-0.45 [facility] Comment on above: Performed By: #### A CORY ELIS, CUU #### [address] Automated monocyte %Ordered By: Shaan Sabillon on 08-14-2023 Monocytes/100 WBC (Bld) 7.0 % Normal . [facility] Comment on above: Performed By: #### A CORY [facility], CUU #### [address] Automated neutrophil %Ordere d By: Shaan Sabillon on 08-14-2023 Neutrophils/100 WBC (Bld) 54.4 % Normal . [facility] Comment on above: Performed By: #### A DDFLORECITA, UHCG, CUU #### [facility] [address] Basic Metabolic Panelon 07-17 Creatinine Clr Calc Pharmacy 116.71 Normal [facility] Comment on above: Performed By: #### A DDFAIZAUAPLUS, UHCG, CUU #### [address] GFR/1.73 sq M.predicted MDRD (S/P/Bld) [Vol rate/Area] mL/min/{1.73_m2} Normal [facility] Comment on above: Performed By: #### A CORY, ALIYAHG, CUU #### [address] Bilirubin Test strip Ql (U)O rdered By: Shaan Sabillon on 08-14-2023 Bilirubin Ql (U) Negative Negative [facility] Bilirubin.direct [Mass/volum e] in Serum or PlasmaOrdered By: Shaan Sabillon on 08-14-2023 Bilirubin.direct [Mass/Vol] 0.10 mg/dL 0.03-0.18 [facility] Bilirubin.total [Mass/volume ] in Serum or PlasmaOrdered By: Shaan Sabillon on 08-14-2023 Bilirubin [Mass/Vol] 0.3 mg/dL Normal 0.3-1.0 [facility] Comment on above: Performed By: #### A CORY, BRITTANIECG, CUU #### [address] abdomen pelvis w conon CT abdomen pelvis w con [facility] [place] [address] [place] [address] CT Scan Report Signed Patient: Abbey Garcia MR#: [id number] : 1990 Acct:[id number] Age/Sex: 33 / F ADM Date: 08/14/23 Loc: ER Room: Type: [facility] ER Attending Dr: Copies to: Shaan [...] obstruction. Impression dictated by: Cornel Medel Jr., D.ORenetta08/14/2023 5:38 PM Dictation Location: [place] [address] Transcribed By: [facility] 08/14/23 1738 Dictated By: Cornel Medel Jr, DO 08/14/231735 Signed By: 08/14/231737 Normal [facility] Calcium [Mass/volume] in Ser um or PlasmaOrdered By: Shaan Sabillon on 08-14-2023 Calcium [Mass/Vol] 8.7 mg/dL Normal 8.6-10.3 [facility] Comment on above: Performed By: #### A JOSESITO RAY CUU #### [address] Carbon dioxide, total [Moles /volume] in Serum or PlasmaOrdered By: Shaan Sabillon on 08-14-2023 CO2 [Moles/Vol] 21.8 mmol/L Normal 21.0-31.0 [facility] Comment on above: Performed By: #### A ALIYAH RAYG, CUU #### [facility] [address] [place] [address] Chloride [Moles/volume] in S elder or PlasmaOrdered By: Shaan Sabillon on 08-14-2023 Chloride [Moles/Vol] 110 mmol/L High 98-107 [facility] Comment on above: Performed By: #### A ALIYAH RAYG, CUU #### [address] Color of Urine by AutoOrdere d By: Shaan Sabillon on 08-14-2023 Color (U) Light-yellow Normal Yellow [facility] Comment on above: Order Comment: Name Collection Type:: Clean-Voided Midstream Performed By: #### A JOSESITO RAY, CUU #### [address] Complete Blood Count Auto Di ffon 08-14-2023 Mean Corpuscular HGB Conc 33.4 g/dL Normal 32.0-35.0 [facility] Comment on above: Performed By: #### A ALIYAH RAYG, CUU #### [address] Monocytes/100 WBC (Bld) 16.29 % Normal 0.00-20.00 [facility] Comment on above: Performed By: #### A BRITTANIE RAYCG, CUU #### [address] NRBC% 0.0 /100{WBC} Normal 0-0.5 [facility] Comment on above: Performed By: #### A CORY, BRITTANIECG, CUU #### [address] Creatinine [Mass/volume] in Serum or PlasmaOrdered By: Shaan Sabillon on 08-14-2023 Creatinine [Mass/Vol] 0.72 mg/dL Normal 0.60-1.20 [facility] Comment on above: Performed By: #### A DDONUAPLUS, BRITTANIECG, CUU #### [facility] [address] Erythrocyte distribution wid th [Ratio] by Automated countOrdered By: Shaan Sabillon on 08-14-2023 Erythrocyte distribution width (RBC) [Ratio] 14.0 % Normal 11.9-15.3 [facility] Comment on above: Performed By: #### A DDONUAPLUS, UHCG, CUU #### [facility] [address] Erythrocytes [#/volume] in B lood by Automated countOrdered By: Shaan Sabillon on 08-14-2023 RBC (Bld) [#/Vol] 3.99 10*6/uL Normal 3.60-5.00 [facility] Comment on above: Performed By: #### A DDONUAJESSICA, BRITTANIECG, CUU #### [facility] [address] Glucose [Mass/volume] in Ser um or PlasmaOrdered By: Shaan Sabillon on 08-14-2023 Glucose [Mass/Vol] 82 mg/dL Normal 70-100 [facility] Comment on above: ADA recommended refe rence rangeRandom Glucose Reference Range is dependent on time and content of last meal. Glucose of more than 200 mg/dL in a nonstressed, ambulatory subject supports the diagnosis of Diabetes Mellitus. Result Comment: [place] om Glucose Reference Range is dependent on time and content of last meal. Glucose of more than 200 mg/dL in a nonstressed, ambulatory subject supports the diagnosis of Diabetes Mellitus. ADA recommended reference range Performed By: #### A DDONUAPLUS, UHCG, CUU #### [facility] [address] [place] [address] [place] Glucose [Mass/volume] in Uri ne by Test stripOrdered By: Shaan Sabillon on 08-14-2023 Glucose Test strip (U) [Mass/Vol] Normal mg/dL Normal [facility] Hematocrit [Volume Fraction] of Blood by Automated countOrdered By: Shaan Sabillon on 08-14-2023 Hematocrit (Bld) [Volume fraction] 34.7 % Normal 34.0-46.4 [facility] Comment on above: Performed By: #### A DDONUAPLUS, BRITTANIECG, CUU #### [address] Hemoglobin Test strip Ql (U) Ordered By: Shaan Sabillon on 08-14-2023 Hemoglobin Ql (U) Negative Negative [facility] Hemoglobin [Mass/volume] in BloodOrdered By: Shaan Sabillon on 08-14-2023 Hemoglobin (Bld) [Mass/Vol] 11.6 g/dL Low 11.8-15.4 [facility] Comment on above: Performed By: #### A DDONUAPLUS, UHCG, CUU #### [address] Hepatic Panelon 08-14-2023 Albumin [Mass/Vol] 4.2 g/dL Normal 3.5-5.7 [facility] Comment on above: Performed By: #### A DDONUAPLUS, UHCG, CUU #### [address] Bilirubin,Indirect 0.2 mg/dL Normal [facility] Comment on above: Performed By: #### A DDONUAPLUS, UHCG, CUU #### [address] Bilirubin.indirect [Mass/Vol] 0.10 mg/dL Normal 0.03-0.18 [facility] Comment on above: Performed By: #### A DDONUAPLUS, UHCG, CUU #### [address] Ketones [Presence] in Urine by Test stripOrdered By: Shaan Sabillon on 08-14-2023 Ketones Ql (U) Negative Normal Negative [facility] Comment on above: Order Comment: Name Collection Type:: Clean-Voided Midstream Performed By: #### A DDONUAPLUS, UHCG, CUU #### [facility] [address] [place] [address] [place] Lactate [Moles/volume] in Se rum or PlasmaOrdered By: Shaan Sabillon on 08-14-2023 Lactate [Moles/Vol] 0.6 mmol/L Normal 0.5-2.2 [facility] Comment on above: Result Comment: PERF ORMED BY: [place] [address] PATHOLOGIST FINISHING FRAME RUNNER BAUTISTA BAKER M.D. Performed By: #### A DDONUAPLUS, CG, CUU #### [place] [address] [place] Leukocyte esterase [Presence ] in Urine by Test stripOrdered By: Shaan Sabillon on 08-14-2023 Leukocyte esterase Test strip Ql (U) Negative Normal Negative [facility] Comment on above: Order Comment: Name Collection Type:: Clean-Voided Midstream Performed By: #### A DDONUAPLUS, CG, CUU #### [address] Leukocytes [#/volume] correc darvin for nucleated erythrocytes in Blood by Automated counOrdered By: Shaan Sabillon on 08-14-2023 WBC corrected for nucl RBC Auto (Bld) [#/Vol] 6.6 10*3/uL 3.8-11.6 [facility] Leukocytes [#/volume] in Blo od by Automated countOrdered By: Shaan Sabillon on 08-14-2023 WBC (Bld) [#/Vol] 6.6 10*3/uL Normal 3.8-11.6 [facility] Comment on above: Performed By: #### A DDONUAPLUS, CG, CUU #### [place] [address] [place] Lipase [Enzymatic activity/v olume] in Serum or PlasmaOrdered By: Shaan Sabillon on 08-14-2023 Lipase [Catalytic activity/Vol] 67.0 U/L Normal 11.0-82.0 [facility] Comment on above: Result Comment: PERF ORMED BY: [address] [place] [address] PATHOLOGIST FINISHING FRAME RUNNER BAUTISTA BAKER M.D. Performed By: #### A JOSESITO RAY, CUU #### [address] Lymphocytes [#/volume] in Bl ood by Automated countOrdered By: Shaan Sabillon on 08-14-2023 Lymphocytes (Bld) [#/Vol] 2.5 10*3/uL Normal 1.00-4.8 [facility] Comment on above: Performed By: #### A JOSESITO RAY, CUU #### [address] Lymphocytes/100 leukocytes i n Blood by Automated countOrdered By: Shaan Sabillon on 08-14-2023 Lymphocytes/100 WBC (Bld) 37.3 % Normal . [facility] Comment on above: Performed By: #### A JOSESITO RAY, CUU #### [address] MCH [Entitic mass] by Automa darvin countOrdered By: Shaan Sabillon on 08-14-2023 MCH (RBC) [Entitic mass] 29.0 pg Normal 24.7-34.3 [facility] Comment on above: Performed By: #### A JOSESITO RAY, CUU #### [address] MCHC Auto (RBC) [Mass/Vol]Or dered By: Shaan Sabillon on 08-14-2023 MCHC (RBC) [Mass/Vol] 33.4 g/dL 32.0-35.0 [facility] MCV [Entitic volume] by Auto mated countOrdered By: Shaan Sabillon on 08-14-2023 MCV (RBC) [Entitic vol] 87.0 fL Normal 80-100 [facility] Comment on above: Performed By: #### A JOSESITO RAY, CUU #### [facility] [address] [place] [address] [place] Monocyte distribution width [Entitic volume] in Blood by AutomatedOrdered By: Shaan Sabillon on 08-14-2023 Monocyte distribution width Auto (Bld) [Entitic vol] 16.29 % 0.00-20.00 [facility] Neutrophils [#/volume] in Bl ood by Automated countOrdered By: Shaan Sabillon on 08-14-2023 Neutrophils (Bld) [#/Vol] 3.6 10*3/uL Normal 1.8-7.7 [facility] Comment on above: Performed By: #### A CORY ELIS, CUU #### [facility] [address] [place] [address] [place] Nitrite Test strip Ql (U)Ord ered By: Shaan Sabillon on 08-14-2023 Nitrite Ql (U) Negative Negative [facility] No Panel InformationOrdered By: Shaan Sabillon on 08-14-2023 Estimated GFR (CKD-EPI) > 60.0 mL/Min [facility] Creatinine Clearance (Chem 116.71 [facility] Nucleated erythrocytes [Pres ence] in Blood by Automated countOrdered By: Shaan Sabillon on 08-14-2023 Nucleated RBC Auto Ql (Bld) 0.0 /100{WBC} 0-0.5 [facility] Platelet mean volume [Entiti c volume] in Blood by Automated countOrdered By: Shaan Sabillon on 08-14-2023 Platelet mean volume (Bld) [Entitic vol] 9.0 fL Normal 6.3-10.7 [facility] Comment on above: Performed By: #### A CORY ELIS, CUU #### [facility] [address] [place] [address] [place] Platelets [#/volume] in Bloo d by Automated countOrdered By: Shaan Sabillon on 08-14-2023 Platelets (Bld) [#/Vol] 281 10*3/uL Normal 150-450 [facility] Comment on above: Performed By: #### A JOSESITO RAY, CUU #### [facility] [address] [place] [address] [place] Potassium [Moles/volume] in Serum or PlasmaOrdered By: Shaan Sabillon on 08-14-2023 Potassium [Moles/Vol] 3.2 mmol/L Low 3.5-5.1 [facility] Comment on above: Performed By: #### A JOSESITO RAY, CUU #### [address] Protein Test strip (U) [Mass /Vol]Ordered By: Shaan Sabillon on 08-14-2023 Protein (U) [Mass/Vol] Negative Negative [facility] Protein [Mass/volume] in Ser um or PlasmaOrdered By: Shaan Sabillon on 08-14-2023 Protein [Mass/Vol] 6.9 g/dL Normal 6.4-8.9 [facility] Comment on above: Performed By: #### A JOSESITO RAY, CUU #### [address] Serum globulin measurement b y calculation (mass/volume)Ordered By: Shaan Sabillon on 08-14-2023 Globulin (S) [Mass/Vol] 2.7 g/dL Normal [facility] Comment on above: Performed By: #### A JOSESITO RAY, CUU #### [address] Serum or plasma albumin/glob ulin mass ratioOrdered By: Shaan Sabiloln on 08-14-2023 Albumin/Globulin [Mass ratio] 1.6 {ratio} [facility] Comment on above: Performed By: #### A JOSESITO RAY, CUU #### [address] Serum or plasma anion gap de terminationOrdered By: Shaan Sabillon on 08-14-2023 Anion gap [Moles/Vol] 10.4 mmol/L Normal 6.0-15.0 [facility] Comment on above: Performed By: #### A JOSESITO RAY, CUU #### [address] Serum or plasma non-glucuron idated bilirubin measurement (mass/volume)Ordered By: Shaan Sabillon on 08-14-2023 Bilirubin.indirect [Mass/Vol] 0.2 mg/dL [facility] Sodium [Moles/volume] in Ser um or PlasmaOrdered By: Shaan Sabillon on 08-14-2023 Sodium [Moles/Vol] 139 mmol/L Normal 136-145 [facility] Comment on above: Performed By: #### A DDONUAPLUS, UHCG, CUU #### [facility] [address] Specific gravity Test strip (U) [Rel density]Ordered By: Shaan Sabillon on 08-14-2023 Specific gravity (U) [Rel density] 1.026 1.001-1.030 [facility] Urea nitrogen [Mass/volume] in Serum or PlasmaOrdered By: Shaan Sabillon on 08-14-2023 Urea nitrogen [Mass/Vol] 8 mg/dL Normal 7-25 [facility] Comment on above: Performed By: #### A DDONUAPLUS, UHCG, CUU #### [place] [address] [place] Urinalysison 08-14-2023 Bilirubin,Urine Negative Normal Negative [facility] Comment on above: Order Comment: Name Collection Type:: Clean-Voided Midstream Performed By: #### A DDONUAPLUS, UHCG, CUU #### [facility] [address] [place] [id number] [facility] Glucose Ql (U) Normal Normal Normal [facility] Comment on above: Order Comment: Name Collection Type:: Clean-Voided Midstream Performed By: #### A DDONUAPLUS, UHCG, CUU #### [facility] [address] [place] [id number] [place] Nitrite,Urine Negative Normal Negative [facility] Comment on above: Order Comment: Name Collection Type:: Clean-Voided Midstream Performed By: #### A DDONUAPLUS, UHCG, CUU #### [facility] [address] [place] [id number] [place] Occult Blood,Urine Negative Normal Negative [facility] Comment on above: Order Comment: Name Collection Type:: Clean-Voided Midstream Result Comment: PERF ORMED BY: [place] [address] PATHOLOGIST FINISHING FRAME RUNNER BAUTISTA BAKER M.D. Performed By: #### A DDONUAPLUS, UHCG, CUU #### [address] Protein,Urine Negative Normal Negative [facility] Comment on above: Order Comment: Name Collection Type:: Clean-Voided Midstream Performed By: #### A DDONUAPLUS, UHCG, CUU #### [address] Specificy [place],Urine 1.026 Normal 1.001-1.030 [facility] Comment on above: Order Comment: Name Collection Type:: Clean-Voided Midstream Performed By: #### A DDONUAPLUS, UHCG, CUU #### [address] Urobilinogen,Urine Normal Normal Normal [facility] Comment on above: Order Comment: Name Collection Type:: Clean-Voided Midstream Performed By: #### A DDONUAPLUS, UHCG, CUU #### [address] Urine appearanceOrdered By: Shaan Sabillon on 08-14-2023 Appearance (U) Clear Normal Clear [facility] Comment on above: Order Comment: Name Collection Type:: Clean-Voided Midstream Performed By: #### A DDONUAPLUS, UHCG, CUU #### [address] Urobilinogen Test strip (U) [Mass/Vol]Ordered By: Shaan Sabillon on 08-14-2023 Urobilinogen (U) [Mass/Vol] Normal mg/dL Normal [facility] pH of Urine by Test stripOrd ered By: Shaan Sabillon on 08-14-2023 pH (U) 7.0 [pH] Normal 5.0-9.0 [facility] Comment on above: Order Comment: Name Collection Type:: Clean-Voided Midstream Performed By: #### A DDFAIZAUAPLUS, [facility], [facility] #### [facility] [address] CNPNon 08-12-2023 CNPN Normal [facility] CNOVon 08-09-2023 CNOV Normal [facility] CASE MGT INIT ASSESon 2023 CASE MGT INIT ASSES Normal [facility] CBC panel Auto (Bld)on 08-07 Erythrocyte distribution width (RBC) [Ratio] 13.2 % Normal 11.5-15.0 [facility] Comment on above: Order Comment: Speci men Type: BLOOD SPECIMENOrdering Facility: [facility] Address: [address] [place] [address] Performed By: #### 5 8410-2 ####[facility] LABCLIA [id number] [place] [address] [place] Hematocrit (Bld) [Volume fraction] 31.1 % Low 36.0-46.0 [facility] Comment on above: Order Comment: Speci men Type: BLOOD SPECIMENOrdering Facility: [facility] Address: [address] [place] [address] Performed By: #### 5 8410-2 ####[facility] LABCLIA [id number] [place] [address] [place] Hemoglobin (Bld) [Mass/Vol] 9.9 g/dL Low 11.5-15.5 [facility] Comment on above: Order Comment: Speci men Type: BLOOD SPECIMENOrdering Facility: [facility] Address: [address] [place] [address] Performed By: #### 5 8410-2 ####[facility] LABCLIA [id number] [place] [address] [place] MCH (RBC) [Entitic mass] 29.4 pg Normal 26.0-34.0 [facility] Comment on above: Order Comment: Speci men Type: BLOOD SPECIMENOrdering Facility: [facility] Address: [address] [place] [address] Performed By: #### 5 8410-2 ####[facility] LABIA [id number] [place] [address] [place] MCHC (RBC) [Mass/Vol] 31.8 g/dL Normal 30.5-36.0 [facility] Comment on above: Order Comment: Speci men Type: BLOOD SPECIMENOrdering Facility: [facility] Address: [address] [place] [address] Performed By: #### 5 8410-2 ####[facility] [id number] [place] [address] [place] MCV (RBC) [Entitic vol] 92.3 fL Normal 80.0-100.0 [facility] Comment on above: Order Comment: Speci men Type: BLOOD SPECIMENOrdering Facility: [facility] Address: [address] [place] [address] Performed By: #### 5 8410-2 ####[facility] [id number] [place] [address] [place] Nucleated RBC (Bld) [#/Vol] 10*3/uL Normal <0.01 [facility] Comment on above: Order Comment: Speci men Type: BLOOD SPECIMENOrdering Facility: [facility] Address: [address] [place] [address] Performed By: #### 5 8410-2 ####[facility] [id number] [place] [address] [place] Platelet mean volume (Bld) [Entitic vol] 10.3 fL Normal 9.0-12.7 [facility] Comment on above: Order Comment: Speci men Type: BLOOD SPECIMENOrdering Facility: [facility] Address: [address] [place] [address] Performed By: #### 5 8410-2 ####[facility] LABIA [id number] [address] [address] [place] Platelets (Bld) [#/Vol] 267 10*3/uL Normal 150-400 [facility] Comment on above: Order Comment: Speci men Type: BLOOD SPECIMENOrdering Facility: [facility] Address: [address] [place] [address] Performed By: #### 5 8410-2 ####[facility] LABIA [id number] [place] [id number] [place] RBC (Bld) [#/Vol] 3.37 10*6/uL Low 3.90-5.20 [facility] Comment on above: Order Comment: Speci men Type: BLOOD SPECIMENOrdering Facility: [facility] Address: [address] [place] [address] Performed By: #### 5 8410-2 ####[facility] [id number] [place] [id number] [place] WBC (Bld) [#/Vol] 3.17 10*3/uL Low 3.70-11.00 [facility] Comment on above: Order Comment: Speci men Type: BLOOD SPECIMENOrdering Facility: [facility] Address: [address] [place] [address] Performed By: #### 5 8410-2 ####[facility] LABIA [id number] [place] [id number] [place] CNDSon 08-08-2023 CNDS Normal [facility] CRP SerPl-mCncon 08-08-2023 CRP [Mass/Vol] mg/L Normal <0.9 [facility] Comment on above: Order Comment: Speci men Type: BLOOD SPECIMENOrdering Facility: [facility] Address: [address] [place] [address] Performed By: #### 2 4362, ####[facility] LABCLIA [id number] [address] [address] [place] Magnesium SerPl-mCncon 08-07 Magnesium [Mass/Vol] 2.0 mg/dL Normal 1.7-2.3 [facility] Comment on above: Order Comment: Speci men Type: BLOOD SPECIMENOrdering Facility: [facility] Address: [address] [place] [address] Performed By: #### 2 436-6, 1987-06, ####[facility] LABCLIA [id number] [address] [address] [place] NUTRITIONon 08-08-2023 NUTRITION Normal [facility] Renal function 2000 panelon 08-08-2023 Albumin [Mass/Vol] 3.4 g/dL Low 3.9-4.9 [facility] Comment on above: Order Comment: Speci men Type: BLOOD SPECIMENOrdering Facility: [facility] Address: [address] [place] [address] Performed By: #### 2 436-6, 1987-06, ####[facility] LABIA [id number] [address] [address] [place] Anion gap [Moles/Vol] 9 mmol/L Normal 8-15 [facility] Comment on above: Order Comment: Speci men Type: BLOOD SPECIMENOrdering Facility: [facility] Address: [address] [place] [address] Performed By: #### 2 4362-6, ####[facility] LABIA [id number] [address] [address] [place] Calcium [Mass/Vol] 8.7 mg/dL Normal 8.5-10.2 [facility] Comment on above: Order Comment: Speci men Type: BLOOD SPECIMENOrdering Facility: [facility] Address: [address] [place], [place] [address] Performed By: #### 2 4362-6, ####[facility] LABCLIA [id number] [address] [address] [place] Chloride [Moles/Vol] 108 mmol/L High 98-107 [facility] Comment on above: Order Comment: Speci men Type: BLOOD SPECIMENOrdering Facility: [facility] Address: [address] [place] [address] Performed By: #### 2 4362-6, ####[facility] LABIA [id number] [address] [address] [place] CO2 [Moles/Vol] 22 mmol/L Normal 22-30 [facility] Comment on above: Order Comment: Speci men Type: BLOOD SPECIMENOrdering Facility: [facility] Address: [address] [place] [address] Performed By: #### 2 436[address], ####[facility] LABIA [id number] [place] [id number] [place] Creatinine [Mass/Vol] 0.69 mg/dL Normal 0.58-0.96 [facility] Comment on above: Order Comment: Speci men Type: BLOOD SPECIMENOrdering Facility: [facility] Address: [address] [place] [address] Performed By: #### 2 4362-6, ####[facility] LABIA [id number] [address] [address] [place] Creatinine and Glomerular filtration rate.predicted panel (S/P/Bld) 117 mL/min/1.73m??? Normal >=60 [facility] Comment on above: Order Comment: Speci men Type: BLOOD SPECIMENOrdering Facility: [facility] Address: [address] [place] [address] Result Comment: Jessica mated Glomerular Filtration Rate [...] reflect actual GFR. Performed By: #### 2 4366, ####[facility] LABCLIA [id number] [place] [address] [place] Glucose [Mass/Vol] 89 mg/dL Normal 74-99 [facility] Comment on above: Order Comment: Geraldo marrero Type: BLOOD SPECIMENOrdering Facility: [facility] Address: [address] [place] [address] Result Comment: The [place] [employer] (ADA) provides guidance for cutoff [...] Standards of Medical Care in Diabetes 2016, [place] [employer]. Diabetes Care. 2016.39(Suppl 1). Performed By: #### 2 43603-23, ####[facility] LABCLIA [id number] [address] [address] [place] Phosphate [Mass/Vol] 3.9 mg/dL Normal 2.7-4.8 [facility] Comment on above: Order Comment: Geraldo marrero Type: BLOOD SPECIMENOrdering Facility: [facility] Address: [address] [place] [address] Performed By: #### 2 43603-23, ####[facility] LABCLIA [id number] [place] [address] [place] Potassium [Moles/Vol] 4.1 mmol/L Normal 3.7-5.1 [facility] Comment on above: Order Comment: Speci men Type: BLOOD SPECIMENOrdering Facility: [facility] Address: [address] [place] [address] Performed By: #### 2 4362-6, 1987-06, ####[facility] LABIA [id number] [place] [address] [place] Sodium [Moles/Vol] 139 mmol/L Normal 136-144 [facility] Comment on above: Order Comment: Speci men Type: BLOOD SPECIMENOrdering Facility: [facility] Address: [address] [place] [address] Performed By: #### 2 4362-6, 1987-06, ####[facility] [id number] [place] [address] [place] Urea nitrogen [Mass/Vol] 7 mg/dL Normal 7-21 [facility] Comment on above: Order Comment: Speci men Type: BLOOD SPECIMENOrdering Facility: [facility] Address: [address] [place] [address] Performed By: #### 2 4362-6, 1987-06, ####[facility] LABIA [id number] [place] [id number] [place] CBC W Auto Differential pane l (Bld)on 08-07-2023 Basophils (Bld) [#/Vol] 0.04 10*3/uL Normal <0.11 [facility] Comment on above: Order Comment: Speci men Type: BLOOD SPECIMENOrdering Facility: [facility] Address: [address] [place] [address] Performed By: #### 5 7021-8, 11731-9 ####[facility] LABIA [id number] [place] [address] [place] Basophils/100 WBC (Bld) 0.7 % Normal [facility] Comment on above: Order Comment: Speci men Type: BLOOD SPECIMENOrdering Facility: [facility] Address: [address] [place] [address] Performed By: #### 5 7021-8, 74589-4 ####[facility] LABCLIA [id number] [place] [address] [place] Differential cell count method Nom (Bld) Auto Normal [facility] Comment on above: Order Comment: Speci men Type: BLOOD SPECIMENOrdering Facility: [facility] Address: [address] [place] [address] Performed By: #### 5 7021-8, 15353-9 ####[facility] LABCLIA [id number] [place] [address] [place] Eosinophils (Bld) [#/Vol] 0.10 10*3/uL Normal <0.46 [facility] Comment on above: Order Comment: Speci men Type: BLOOD SPECIMENOrdering Facility: [facility] Address: [address] [place] [address] Performed By: #### 5 7021-8, 75287-3 ####[facility] LABCLIA [id number] [place] [address] [place] Eosinophils/100 WBC (Bld) 1.8 % Normal [facility] Comment on above: Order Comment: Speci men Type: BLOOD SPECIMENOrdering Facility: [facility] Address: [address] [place] [address] Performed By: #### 5 7021-8, 22634-4 ####[facility] LABCLIA [id number] [place] [address] [place] Erythrocyte distribution width (RBC) [Ratio] 12.6 % Normal 11.5-15.0 [facility] Comment on above: Order Comment: Speci men Type: BLOOD SPECIMENOrdering Facility: [facility] Address: [address] [place] [address] Performed By: #### 5 7021-8, 76861-2 ####[facility] LABCLIA [id number] [place] [address] [place] Hematocrit (Bld) [Volume fraction] 30.4 % Low 36.0-46.0 [facility] Comment on above: Order Comment: Speci men Type: BLOOD SPECIMENOrdering Facility: [facility] Address: [address] [place] [address] Performed By: #### 5 7021-8, 09514-7 ####[facility] LABCLIA [id number] [place] [address] [place] Hemoglobin (Bld) [Mass/Vol] 10.1 g/dL Low 11.5-15.5 [facility] Comment on above: Order Comment: Speci men Type: BLOOD SPECIMENOrdering Facility: [facility] Address: [address] [place] [address] Performed By: #### 5 7021-8, 28654-9 ####[facility] LABCLIA [id number] [place] [address] [place] Immature granulocytes (Bld) [#/Vol] 10*3/uL Normal <0.10 [facility] Comment on above: Order Comment: Speci men Type: BLOOD SPECIMENOrdering Facility: [facility] Address: [address] [place] [address] Performed By: #### 5 7021-8, 73078-0 ####[facility] LABCLIA [id number] [place] [address] [place] Immature granulocytes/100 WBC (Bld) 0.2 % Normal [facility] Comment on above: Order Comment: Speci men Type: BLOOD SPECIMENOrdering Facility: [facility] Address: [address] [place] [address] Performed By: #### 5 7021-8, 47822-7 ####[facility] LABCLIA [id number] [place] [address] [place] Lymphocytes (Bld) [#/Vol] 1.13 10*3/uL Normal 1.00-4.00 [facility] Comment on above: Order Comment: Speci men Type: BLOOD SPECIMENOrdering Facility: [facility] Address: [address] [place] [address] Performed By: #### 5 7021-8, 59886-7 ####[facility] LABCLIA [id number] [place] [address] [place] Lymphocytes/100 WBC (Bld) 20.8 % Normal [facility] Comment on above: Order Comment: Speci men Type: BLOOD SPECIMENOrdering Facility: [facility] Address: [address] [place] [address] Performed By: #### 5 7021-8, 14400-0 ####[facility] LABCLIA [id number] [place] [address] [place] MCH (RBC) [Entitic mass] 29.5 pg Normal 26.0-34.0 [facility] Comment on above: Order Comment: Speci men Type: BLOOD SPECIMENOrdering Facility: [facility] Address: [address] [place] [address] Performed By: #### 5 7021-8, 32687-2 ####[facility] LABCLIA [id number] [place] [id number] [place] MCHC (RBC) [Mass/Vol] 33.2 g/dL Normal 30.5-36.0 [facility] Comment on above: Order Comment: Speci men Type: BLOOD SPECIMENOrdering Facility: [facility] Address: [address] [place] [address] Performed By: #### 5 7021-8, 27164-6 ####[facility] LABCLIA [id number] [place] [address] [place] MCV (RBC) [Entitic vol] 88.9 fL Normal 80.0-100.0 [facility] Comment on above: Order Comment: Speci men Type: BLOOD SPECIMENOrdering Facility: [facility] Address: [address] [place] [address] Performed By: #### 5 7021-8, 41908-4 ####[facility] LABIA [id number] [place] [address] [place] Monocytes (Bld) [#/Vol] 0.38 10*3/uL Normal <0.87 [facility] Comment on above: Order Comment: Speci men Type: BLOOD SPECIMENOrdering Facility: [facility] Address: [address] [place] [address] Performed By: #### 5 7021-8, 96231-6 ####[facility] LABIA [id number] [place] [address] [place] Monocytes/100 WBC (Bld) 7.0 % Normal [facility] Comment on above: Order Comment: Speci men Type: BLOOD SPECIMENOrdering Facility: [facility] Address: [address] [place] [address] Performed By: #### 5 7021-8, 53379-5 ####[facility] LABIA [id number] [place] [address] [place] Neutrophils (Bld) [#/Vol] 3.78 10*3/uL Normal 1.45-7.50 [facility] Comment on above: Order Comment: Speci men Type: BLOOD SPECIMENOrdering Facility: [facility] Address: [address] [place] [address] Performed By: #### 5 7021-8, 77777-9 ####[facility] LABIA [id number] [place] [address] [place] Neutrophils/100 WBC (Bld) 69.5 % Normal [facility] Comment on above: Order Comment: Speci men Type: BLOOD SPECIMENOrdering Facility: [facility] Address: [address] [place] [address] Performed By: #### 5 7021-8, 56658-5 ####[facility] LABCLIA [id number] [place] [address] [place] Nucleated RBC (Bld) [#/Vol] 10*3/uL Normal <0.01 [facility] Comment on above: Order Comment: Speci men Type: BLOOD SPECIMENOrdering Facility: [facility] Address: [address] [place] [address] Performed By: #### 5 7021-8, 53858-1 ####[facility] LABCLIA [id number] [place] [address] [place] Nucleated RBC/100 WBC (Bld) [Ratio] 0.0 /100 WBC Normal [facility] Comment on above: Order Comment: Speci men Type: BLOOD SPECIMENOrdering Facility: [facility] Address: [address] [place] [address] Performed By: #### 5 7021-8, 82096-7 ####[facility] LABCLIA [id number] [place] [address] [place] Platelet mean volume (Bld) [Entitic vol] 10.0 fL Normal 9.0-12.7 [facility] Comment on above: Order Comment: Speci men Type: BLOOD SPECIMENOrdering Facility: [facility] Address: [address] [place] [address] Performed By: #### 5 7021-8, 64830-5 ####[facility] LABCLIA [id number] [place] [address] [place] Platelets (Bld) [#/Vol] 271 10*3/uL Normal 150-400 [facility] Comment on above: Order Comment: Speci men Type: BLOOD SPECIMENOrdering Facility: [facility] Address: [address] [place], [place] [address] Performed By: #### 5 7021-8, 76555-6 ####[facility] LABCLIA [id number] [address] [address] [place] RBC (Bld) [#/Vol] 3.42 10*6/uL Low 3.90-5.20 [facility] Comment on above: Order Comment: Speci men Type: BLOOD SPECIMENOrdering Facility: [facility] Address: [address] [place] [address] Performed By: #### 5 7021-8, 86952-7 ####[facility] LABCLIA [id number] [place] [id number] [place] WBC (Bld) [#/Vol] 5.44 10*3/uL Normal 3.70-11.00 [facility] Comment on above: Order Comment: Speci men Type: BLOOD SPECIMENOrdering Facility: [facility] Address: [address] [place] [address] Performed By: #### 5 7021-8, 91364-3 ####[facility] LABCLIA [id number] [place] [id number] [place] Comprehensive metabolic 2000 panelon 08-07-2023 Albumin [Mass/Vol] 3.7 g/dL Low 3.9-4.9 [facility] Comment on above: Order Comment: Speci men Type: BLOOD SPECIMENOrdering Facility: [facility] Address: [address] [place] [address] Performed By: #### 2 4323-8, 3040-3, 89712-8 ####[facility] LABCLIA [id number] [place] [id number] [place] ALP [Catalytic activity/Vol] 58 U/L Normal 34-123 [facility] Comment on above: Order Comment: Speci men Type: BLOOD SPECIMENOrdering Facility: [facility] Address: [address] [place] [address] Performed By: #### 2 4323-8, 0-3, ####[facility] LABCLIA [id number] [place] [address] [place] ALT [Catalytic activity/Vol] 16 U/L Normal 7-38 [facility] Comment on above: Order Comment: Speci men Type: BLOOD SPECIMENOrdering Facility: [facility] Address: [address] [place] [address] Performed By: #### 2 4323-8, 3039-3, ####[facility] LABCLIA [id number] [place] [address] [place] Anion gap [Moles/Vol] 8 mmol/L Normal 8-15 [facility] Comment on above: Order Comment: Speci men Type: BLOOD SPECIMENOrdering Facility: [facility] Address: [address] [place] [address] Performed By: #### 2 4323-8, 3039-3, ####[facility] LABIA [id number] [place] [address] [place] AST [Catalytic activity/Vol] 18 U/L Normal 13-35 [facility] Comment on above: Order Comment: Speci men Type: BLOOD SPECIMENOrdering Facility: [facility] Address: [address] [place] [address] Performed By: #### 2 4323-8, 3039-3, ####[facility] LABIA [id number] [place] [id number] [place] Bilirubin [Mass/Vol] 0.2 mg/dL Normal 0.2-1.3 [facility] Comment on above: Order Comment: Speci men Type: BLOOD SPECIMENOrdering Facility: [facility] Address: [address] [place] [address] Performed By: #### 2 4323-8, 3039-3, ####[facility] LABCLIA [id number] [address] [address] [place] Calcium [Mass/Vol] 8.0 mg/dL Low 8.5-10.2 [facility] Comment on above: Order Comment: Speci men Type: BLOOD SPECIMENOrdering Facility: [facility] Address: [address] [place] [address] Performed By: #### 2 4323-8, 3, ####[facility] LABCLIA [id number] [place] [address] [place] Chloride [Moles/Vol] 108 mmol/L High 98-107 [facility] Comment on above: Order Comment: Speci men Type: BLOOD SPECIMENOrdering Facility: [facility] Address: [address] [place] [address] Performed By: #### 2 4323-8, 3, ####[facility] LABCLIA [id number] [place] [address] [place] CO2 [Moles/Vol] 23 mmol/L Normal 22-30 [facility] Comment on above: Order Comment: Speci men Type: BLOOD SPECIMENOrdering Facility: [facility] Address: [address] [place] [address] Performed By: #### 2 4323-8, 3, ####[facility] LABCLIA [id number] [address] [address] [place] Creatinine [Mass/Vol] 0.60 mg/dL Normal 0.58-0.96 [facility] Comment on above: Order Comment: Speci men Type: BLOOD SPECIMENOrdering Facility: [facility] Address: [address] [place] [address] Performed By: #### 2 4323-8, 3, ####[facility] LABCLIA [id number] [place] [address] [place] Creatinine and Glomerular filtration rate.predicted panel (S/P/Bld) 121 mL/min/1.73m??? Normal >=60 [facility] Comment on above: Order Comment: Geraldo marrero Type: BLOOD SPECIMENOrdering Facility: [facility] Address: [address] [place] [address] Result Comment: Jessica mated Glomerular Filtration Rate [...] GFR. Performed By: #### 2 4323-8, 3040-3, 68468-4 ####[facility] [id number] [place] [address] [place] Glucose [Mass/Vol] 89 mg/dL Normal 74-99 [facility] Comment on above: Order Comment: Geraldo marrero Type: BLOOD SPECIMENOrdering Facility: [facility] Address: [address] [place] [address] Result Comment: The [place] [employer] (ADA) provides guidance for cutoff [...] Standards of Medical Care in Diabetes 2016, [place] [employer]. Diabetes Care. 2016.39(Suppl 1). Performed By: #### 2 4323-8, 3040-3, 73081-8 ####[facility] LABIA [id number] [address] [address] [place] Potassium [Moles/Vol] 3.6 mmol/L Low 3.7-5.1 [facility] Comment on above: Order Comment: Speci men Type: BLOOD SPECIMENOrdering Facility: [facility] Address: [address] [place], [place] [address] Performed By: #### 2 4323-8, 3039-3, ####[facility] LABCLIA [id number] [address] [address] [place] Protein [Mass/Vol] 5.8 g/dL Low 6.3-8.0 [facility] Comment on above: Order Comment: Speci men Type: BLOOD SPECIMENOrdering Facility: [facility] Address: [address] [place] [address] Performed By: #### 2 4323-8, 3, ####[facility] LABCLIA [id number] [place] [id number] [place] Sodium [Moles/Vol] 139 mmol/L Normal 136-144 [facility] Comment on above: Order Comment: Speci men Type: BLOOD SPECIMENOrdering Facility: [facility] Address: [address] [place], [place] [address] Performed By: #### 2 4323-8, 3, ####[facility] LABCLIA [id number] [address] [address] [place] Urea nitrogen [Mass/Vol] 10 mg/dL Normal 7-21 [facility] Comment on above: Order Comment: Speci men Type: BLOOD SPECIMENOrdering Facility: [facility] Address: [address] [place] [address] Performed By: #### 2 4323-8, 3039-3, ####[facility] LABCLIA [id number] [address] [address] [place] ORP21sk 06-22-2024 ECG01 Normal [facility] ED NOTEon 08-07-2023 ED NOTE HNO ID: [id number] Author: PASTORA MADERA RN Service: ? Author Type: Registered Nurse Type: ED Notes Filed: 08/07/2023 17:39 Note Text: Report given to H80 Normal [facility] ED NOTE HNO ID: [id number] Author: PASTORA MADERA RN Service: ? Author Type: Registered Nurse Type: ED Notes Filed: 08/07/2023 17:07 Note Text: Report attempted x1. Call back # given Normal [facility] ED NOTE HNO ID: [id number] Author: ESTEFANI WHITE CT Service: Emergency Medicine Author Type: Clinical Roadside Mechanic Type: ED Notes Filed: 08/07/2023 09:32 Note Text: EKG complete Normal [facility] ED PROV NOTEon 08-07-2023 ED PROV NOTE Normal [facility] HISTORY PHYSICALon HISTORY PHYSICAL Normal [facility] Lactate (Bld) [Moles/Vol]on 08-07-2023 Lactate [Moles/Vol] 0.8 mmol/L Normal 0.5-2.2 [facility] Comment on above: Order Comment: Speci men Type: BLOOD SPECIMENOrdering Facility: [facility] Address: [address] [place] [address] Performed By: #### 3 2693-4 ####[facility] LABCLIA [id number] [place] [address] [place] Lipase SerPl-cCncon 08-07-19 24 Lipase [Catalytic activity/Vol] 45 U/L Normal 16-61 [facility] Comment on above: Order Comment: Speci men Type: BLOOD SPECIMENOrdering Facility: [facility] Address: [address] [place] [address] Performed By: #### 2 4323-8, 3040-3, 18394-0 ####[facility] LABCLIA [id number] [address] [address] [address] [place] Magnesium SerPl-mCncon 08-06 Magnesium [Mass/Vol] 1.9 mg/dL Normal 1.7-2.3 [facility] Comment on above: Order Comment: Speci men Type: BLOOD SPECIMENOrdering Facility: [facility] Address: [address] [place] [address] Performed By: #### 2 4323-8, 3040-3, 38957-0 ####[facility] LABCLIA [id number] [place] [address] [place] Retics #on 08-07-2023 Reticulocytes (Bld) [#/Vol] 0.75963 10*3/uL Normal 0.018-0.100 [facility] Comment on above: Order Comment: Speci men Type: BLOOD SPECIMENOrdering Facility: [facility] Address: [address] [place] [address] Performed By: #### 5 7021-8, 82211-8 ####[facility] LABIA [id number] [place] [address] [place] Reticulocytes (Bld) [#/Vol]o n 08-07-2023 Reticulocytes/100 RBC (Bld) 1.6 % Normal 0.4-2.0 [facility] Comment on above: Order Comment: Speci men Type: BLOOD SPECIMENOrdering Facility: [facility] Address: [address] [place] [address] Performed By: #### 5 7021-8, 76095-2 ####[facility] LABIA [id number] [place] [address] [place] STREPTOCOCCUS PNEUMONIAE ANT IGEN URINEon 08-07-2023 STREPTOCOCCUS PNEUMONIAE ANTIGEN URINE Normal [facility] Comment on above: Performed By: #### S PNAG ####[facility] LABIA [id number] [place] [address] [place] XR CHEST 2V FRONTAL/LATon XR CHEST 2V FRONTAL/LAT Normal [facility] CASE MANAGEMon 08-06-2023 CASE MANAGEM Normal [facility] CNDSon 08-06-2023 CNDS Normal [facility] CONSULT PROGon 08-06-2023 CONSULT PROG Normal [facility] Magnesium SerPl-mCncon 08-05 Magnesium [Mass/Vol] 1.8 mg/dL Normal 1.7-2.3 [facility] Comment on above: Order Comment: Speci men Type: BLOOD SPECIMENOrdering Facility: [facility] Address: [address] [place] [address] Performed By: #### 1 9123-9, 67291-6 ####[facility] LABORATORYCLIA [id number] [place] [address] [place] NURSING PROGon 08-06-2023 NURSING PROG Normal [facility] NUTRITIONon 08-06-2023 NUTRITION Normal [facility] Renal function 2000 panelon 08-06-2023 Albumin [Mass/Vol] 3.5 g/dL Low 3.9-4.9 [facility] Comment on above: Order Comment: Speci men Type: BLOOD SPECIMENOrdering Facility: [facility] Address: [address] [place] [address] Performed By: #### 1 9123-9, 40677-1 ####[facility] LABORATORYCLIA [id number] [place] [address] [place] Anion gap [Moles/Vol] 10 mmol/L Normal 8-15 [facility] Comment on above: Order Comment: Speci men Type: BLOOD SPECIMENOrdering Facility: [facility] Address: [address] [place] [address] Performed By: #### 1 9123-9, 21929-9 ####[facility] LABORATORYCLIA [id number] [place] [address] [place] Calcium [Mass/Vol] 8.2 mg/dL Low 8.5-10.2 [facility] Comment on above: Order Comment: Speci men Type: BLOOD SPECIMENOrdering Facility: [facility] Address: [address] [place] [address] Performed By: #### 1 9123-9, 39930-0 ####[facility] LABORATORYCLIA [id number] [place] [address] [place] Chloride [Moles/Vol] 106 mmol/L Normal 98-107 [facility] Comment on above: Order Comment: Speci men Type: BLOOD SPECIMENOrdering Facility: [facility] Address: [address] [place] [address] Performed By: #### 1 9123-9, 94752-2 ####[facility] LABORATORYCLIA [id number] [place] [address] [place] CO2 [Moles/Vol] 23 mmol/L Normal 22-30 [facility] Comment on above: Order Comment: Speci men Type: BLOOD SPECIMENOrdering Facility: [facility] Address: [address] [place] [address] Performed By: #### 1 9123-9, 58172-6 ####[facility] LABORATORYCLIA [id number] [place] [address] [place] Creatinine [Mass/Vol] 0.71 mg/dL Normal 0.58-0.96 [facility] Comment on above: Order Comment: Speci men Type: BLOOD SPECIMENOrdering Facility: [facility] Address: [address] [place] [address] Performed By: #### 1 9123-9, 24340-0 ####[facility] LABORATORYCLIA [id number] [place] [address] [place] Creatinine and Glomerular filtration rate.predicted panel (S/P/Bld) 115 mL/min/1.73m??? Normal >=60 [facility] Comment on above: Order Comment: Speci men Type: BLOOD SPECIMENOrdering Facility: [facility] Address: [address] [place] [address] Result Comment: Jessica mated Glomerular Filtration Rate [...] actual GFR. Performed By: #### 1 9123-9, 08960-3 ####[facility] LABORATORYCLIA [id number] [place] [address] [place] Glucose [Mass/Vol] 106 mg/dL High 74-99 [facility] Comment on above: Order Comment: Geraldo marrero Type: BLOOD SPECIMENOrdering Facility: [facility] Address: [address] [place] [address] Result Comment: The [place] [employer] (ADA) provides guidance for cutoff [...] Standards of Medical Care in Diabetes 2016, [place] [employer]. Diabetes Care. 2016.39(Suppl 1). Performed By: #### 1 9123-9, 09801-9 ####[facility] LABORATORYCLIA [id number] [place] [address] [place] Phosphate [Mass/Vol] 4.2 mg/dL Normal 2.7-4.8 [facility] Comment on above: Order Comment: Geraldo marrero Type: BLOOD SPECIMENOrdering Facility: [facility] Address: [address] [place] [address] Performed By: #### 1 9123-9, 33685-7 ####[facility] LABORATORYCLIA [id number] [place] [address] [place] Potassium [Moles/Vol] 3.8 mmol/L Normal 3.7-5.1 [facility] Comment on above: Order Comment: Speci men Type: BLOOD SPECIMENOrdering Facility: [facility] Address: [address] [place] [address] Performed By: #### 1 9123-9, 64318-2 ####[facility] LABORATORYCLIA [id number] [facility] [place] [address] [place] Sodium [Moles/Vol] 139 mmol/L Normal 136-144 [facility]ital Comment on above: Order Comment: Speci men Type: BLOOD SPECIMENOrdering Facility: [facility] Address: [address] [place] [address] Performed By: #### 1 9123-9, 70610-7 ####[facility] LABORATORYCLIA [id number] [place] [address] [place] Urea nitrogen [Mass/Vol] 12 mg/dL Normal 7-21 [facility] Comment on above: Order Comment: Speci men Type: BLOOD SPECIMENOrdering Facility: [facility] Address: [address] [place] [address] Performed By: #### 1 9123-9, 43251-4 ####[facility] LABORATORYCLIA [id number] [place] [address] [place] ALLIED HEALTHon 08-05-2023 ALLIED HEALTH Normal [facility] 2023 CASE MGT INIT [facility] CONSULTon 08-05-2023 CONSULT Normal [facility] NUTRITIONon 08-05-2023 NUTRITION Normal [facility] CBC W Auto Differential pane l (Bld)on 08-04-2023 Basophils (Bld) [#/Vol] 0.04 10*3/uL Normal <0.11 [facility] Comment on above: Order Comment: Speci men Type: BLOOD SPECIMENOrdering Facility: [facility] Address: [address] [place] [address] Performed By: #### 5 7021-8 ####[facility] LABORATORYCLIA [id number] [place] [address] [place] Basophils/100 WBC (Bld) 0.5 % Normal [facility] Comment on above: Order Comment: Speci men Type: BLOOD SPECIMENOrdering Facility: [facility] Address: [address] [place] [address] Performed By: #### 5 7021-8 ####[facility] LABORATORYIA [id number] [facility] [place] [address] [place] Differential cell count method Nom (Bld) Auto Normal [facility] Comment on above: Order Comment: Speci men Type: BLOOD SPECIMENOrdering Facility: [facility] Address: [address] [place] [address] Performed By: #### 5 7021-8 ####[facility] LEM[facility]OREIA [id number] [place] [id number] [place] Eosinophils (Bld) [#/Vol] 0.05 10*3/uL Normal <0.46 [facility] Comment on above: Order Comment: Speci men Type: BLOOD SPECIMENOrdering Facility: [facility] Address: [address] [place] [address] Performed By: #### 5 7021-8 ####[facility] LEMOOREIA [id number] [place] [address] [place] Eosinophils/100 WBC (Bld) 0.6 % Normal [facility] Comment on above: Order Comment: Speci men Type: BLOOD SPECIMENOrdering Facility: [facility] Address: [address] [place] [address] Performed By: #### 5 7021-8 ####[facility] LABORATORYIA [id number] [place] [address] [place] Erythrocyte distribution width (RBC) [Ratio] 12.8 % Normal 11.5-15.0 [facility] Comment on above: Order Comment: Speci men Type: BLOOD SPECIMENOrdering Facility: [facility] Address: [address] [place] [address] Performed By: #### 5 7021-8 ####[facility] LABORATORYIA [id number] [place] [id number] [place] Hematocrit (Bld) [Volume fraction] 36.2 % Normal 36.0-46.0 [facility] Comment on above: Order Comment: Speci men Type: BLOOD SPECIMENOrdering Facility: [facility] Address: [address] [place] [address] Performed By: #### 5 7021-8 ####[facility] LABORATORYCLIA [id number] [place] [address] [place] Hemoglobin (Bld) [Mass/Vol] 12.0 g/dL Normal 11.5-15.5 [facility] Comment on above: Order Comment: Speci men Type: BLOOD SPECIMENOrdering Facility: [facility] Address: [address] [place] [address] Performed By: #### 5 7021-8 ####[facility] LABORATORYCLIA [id number] [place] [id number] [place] Immature granulocytes (Bld) [#/Vol] 10*3/uL Normal <0.10 [facility] Comment on above: Order Comment: Speci men Type: BLOOD SPECIMENOrdering Facility: [facility] Address: [address] [place] [address] Performed By: #### 5 7021-8 ####[facility] LABORATORYCLIA [id number] [place] [address] [place] Immature granulocytes/100 WBC (Bld) 0.2 % Normal [facility] Comment on above: Order Comment: Speci men Type: BLOOD SPECIMENOrdering Facility: [facility] Address: [address] [place] [address] Performed By: #### 5 7021-8 ####[facility] LABORATORYCLIA [id number] [place] [address] [place] Lymphocytes (Bld) [#/Vol] 1.30 10*3/uL Normal 1.00-4.00 [facility] Comment on above: Order Comment: Speci men Type: BLOOD SPECIMENOrdering Facility: [facility] Address: [address] [place] [address] Performed By: #### 5 7021-8 ####[facility] LABORATORYIA [id number] [address] [place] [facility] Lymphocytes/100 WBC (Bld) 14.9 % Normal [facility] Comment on above: Order Comment: Speci men Type: BLOOD SPECIMENOrdering Facility: [facility] Address: [address] [place] [address] Performed By: #### 5 7021-8 ####[facility] [id number] [address] [place] MCH (RBC) [Entitic mass] 30.1 pg Normal 26.0-34.0 [facility] Comment on above: Order Comment: Speci men Type: BLOOD SPECIMENOrdering Facility: [facility] Address: [address] [place] [address] Performed By: #### 5 7021-8 ####[facility] [id number] [address] [place] MCHC (RBC) [Mass/Vol] 33.1 g/dL Normal 30.5-36.0 [facility] Comment on above: Order Comment: Speci men Type: BLOOD SPECIMENOrdering Facility: [facility] Address: [address] [place] [address] Performed By: #### 5 7021-8 ####[facility] [id number] [address] [place] MCV (RBC) [Entitic vol] 90.7 fL Normal 80.0-100.0 [facility] Comment on above: Order Comment: Speci men Type: BLOOD SPECIMENOrdering Facility: [facility] Address: [address] [place] [address] Performed By: #### 5 7021-8 ####[facility] [id number] [address] [place] Monocytes (Bld) [#/Vol] 0.39 10*3/uL Normal <0.87 [facility] Comment on above: Order Comment: Speci men Type: BLOOD SPECIMENOrdering Facility: [facility] Address: [address] [place] [address] Performed By: #### 5 7021-8 ####[facility] [id number] [place] [address] [place] Monocytes/100 WBC (Bld) 4.5 % Normal [facility] Comment on above: Order Comment: Speci men Type: BLOOD SPECIMENOrdering Facility: [facility] Address: [address] [place] [address] Performed By: #### 5 7021-8 ####[facility] LABORATORYIA [id number] [place] [address] [place] Neutrophils (Bld) [#/Vol] 6.91 10*3/uL Normal 1.45-7.50 [facility] Comment on above: Order Comment: Speci men Type: BLOOD SPECIMENOrdering Facility: [facility] Address: [address] [place] [address] Performed By: #### 5 7021-8 ####[facility] LABORATORYCLIA [id number] [place] [address] [place] Neutrophils/100 WBC (Bld) 79.3 % Normal [facility] Comment on above: Order Comment: Speci men Type: BLOOD SPECIMENOrdering Facility: [facility] Address: [address] [place] [address] Performed By: #### 5 7021-8 ####[facility] LABORATORYCLIA [id number] [place] [address] [place] Nucleated RBC (Bld) [#/Vol] 10*3/uL Normal <0.01 [facility] Comment on above: Order Comment: Speci men Type: BLOOD SPECIMENOrdering Facility: [facility] Address: [address] [place] [address] Performed By: #### 5 7021-8 ####[facility] LABORATORYIA [id number] [place] [address] [place] Nucleated RBC/100 WBC (Bld) [Ratio] 0.0 /100 WBC Normal [facility] Comment on above: Order Comment: Speci men Type: BLOOD SPECIMENOrdering Facility: [facility] Address: [address] [place] [address] Performed By: #### 5 7021-8 ####[facility] LABORATORYCLIA [id number] [place] [address] [place] Platelet mean volume (Bld) [Entitic vol] 10.5 fL Normal 9.0-12.7 [facility] Comment on above: Order Comment: Speci men Type: BLOOD SPECIMENOrdering Facility: [facility] Address: [address] [place] [address] Performed By: #### 5 7021-8 ####[facility] LABORATORYIA [id number] [place] [address] [place] Platelets (Bld) [#/Vol] 328 10*3/uL Normal 150-400 [facility] Comment on above: Order Comment: Speci men Type: BLOOD SPECIMENOrdering Facility: [facility] Address: [address] [place] [address] Performed By: #### 5 7021-8 ####[facility] [id number] [place] [address] [place] RBC (Bld) [#/Vol] 3.99 10*6/uL Normal 3.90-5.20 [facility] Comment on above: Order Comment: Speci men Type: BLOOD SPECIMENOrdering Facility: [facility] Address: [address] [place] [address] Performed By: #### 5 7021-8 ####[facility] LABORATORYIA [id number] [place] [address] [place] WBC (Bld) [#/Vol] 8.71 10*3/uL Normal 3.70-11.00 [facility] Comment on above: Order Comment: Speci men Type: BLOOD SPECIMENOrdering Facility: [facility] Address: [address] [place] [address] Performed By: #### 5 7021-8 ####[facility] LABORATORYCLIA [id number] [facility] [place] [address] [place] CNOVon 08-04-2023 CNOV Normal [facility] CNPNon 08-04-2023 CNPN Normal [facility] CONSULTon 08-04-2023 CONSULT Normal [facility] CT ABD/PEL W IVCONon 024 CT ABD/PEL W IVCON Normal [facility] BRAIN WO IVCONon 08-04-[address] BRAIN WO IVCON Normal [facility] Comprehensive metabolic 2000 panelon 08-04-2023 Albumin [Mass/Vol] 3.8 g/dL Low 3.9-4.9 [facility] Comment on above: Order Comment: Speci men Type: BLOOD SPECIMENOrdering Facility: [facility] Address: [address] [place] [address] Performed By: #### 2 4323-8, , 0-3 ####[facility] L[facility] [id number] [facility] [place] [address] [place] ALP [Catalytic activity/Vol] 76 U/L Normal 34-123 [facility] Comment on above: Order Comment: Speci men Type: BLOOD SPECIMENOrdering Facility: [facility] Address: [address] [place] [address] Performed By: #### 2 4323-8, , 0-3 ####[facility] [id number] [facility] [place] [place] [address] [place] ALT [Catalytic activity/Vol] Normal [facility] Comment on above: Order Comment: Speci men Type: BLOOD SPECIMENOrdering Facility: [facility] Address: [address] [place] [address] Result Comment: Unab le to assay due to interference from hemolysis. Suggest reorder as clinically indicated. Performed By: #### 2 4323-8, 08343-2, 0-3 ####[facility] LABORATORYIA [id number] [place] [address] [place] Anion gap [Moles/Vol] 10 mmol/L Normal 8-15 [facility] Comment on above: Order Comment: Speci men Type: BLOOD SPECIMENOrdering Facility: [facility] Address: [address] [place] [address] Performed By: #### 2 4323-8, 17230-6, 0-3 ####[facility] LABORATORYCLIA [id number] [place] [address] [place] AST [Catalytic activity/Vol] Normal [facility] Comment on above: Order Comment: Speci men Type: BLOOD SPECIMENOrdering Facility: [facility] Address: [facility] [place] [address] Result Comment: Unab le to assay due to interference from hemolysis. Suggest reorder as clinically indicated. Performed By: #### 2 4323-8, , 3039-3 ####[facility] LABORATORYCLIA [id number] [place] [address] [place] Bilirubin [Mass/Vol] 0.3 mg/dL Normal 0.2-1.3 [facility] Comment on above: Order Comment: Speci men Type: BLOOD SPECIMENOrdering Facility: [facility] Address: [facility] [place] [address] Performed By: #### 2 4323-8, , 3039-3 ####[facility] LABORATORYCLIA [id number] [place] [address] [place] Calcium [Mass/Vol] 8.7 mg/dL Normal 8.5-10.2 [facility] Comment on above: Order Comment: Speci men Type: BLOOD SPECIMENOrdering Facility: [facility] Address: [facility] [place] [address] Performed By: #### 2 4323-8, , 0-3 ####[facility] LABORATORYCLIA [id number] [place] [address] [place] Chloride [Moles/Vol] 106 mmol/L Normal 98-107 [facility] Comment on above: Order Comment: Speci men Type: BLOOD SPECIMENOrdering Facility: [facility] Address: [address] [place], [place] [address] Performed By: #### 2 4323-8, , 3 ####[facility] LABORATORYCLIA [id number] [facility] [place] [address] [place] CO2 [Moles/Vol] 23 mmol/L Normal 22-30 [facility] ital Comment on above: Order Comment: Speci men Type: BLOOD SPECIMENOrdering Facility: [facility] Address: [address] [place], [place] [id number] Performed By: #### 2 4323-8, , 3039-04 ####[facility] LABORATORYCLIA [id number] [place] [address] [place] Creatinine [Mass/Vol] 0.71 mg/dL Normal 0.58-0.96 [facility] Comment on above: Order Comment: Speci men Type: BLOOD SPECIMENOrdering Facility: [facility] Address: [address] [place], [place] [address] Performed By: #### 2 4323-8, , 3 ####[facility] LABORATORYCLIA [id number] [place] [address] [facility] Creatinine and Glomerular filtration rate.predicted panel (S/P/Bld) 115 mL/min/1.73m??? Normal >=60 [facility] l Comment on above: Order Comment: Speci men Type: BLOOD SPECIMENOrdering Facility: [facility] Address: [address] [place], [place] [id number] Result Comment: Jessica mated Glomerular Filtration Rate [...] GFR. Performed By: #### 2 4323-8, , 3040-3 ####[facility] LEMOOREIA [id number] [facility] [place] [address] [place] Glucose [Mass/Vol] 82 mg/dL Normal 74-99 [facility] Comment on above: Order Comment: Speci men Type: BLOOD SPECIMENOrdering Facility: [facility] Address: [address] [place] [address] Result Comment: The [place] Diabetes Association (ADA) provides guidance for cutoff [...] Standards of Medical Care in Diabetes 2016, [place] Diabetes Association. Diabetes Care. 2016.39(Suppl 1). Performed By: #### 2 4323-8, , 3039-3 ####[facility] LEMOOREIA [id number] [place] [address] [place] Potassium [Moles/Vol] 4.3 mmol/L Normal 3.7-5.1 [facility] Comment on above: Order Comment: Speci men Type: BLOOD SPECIMENOrdering Facility: [facility] Address: [address] [place] [address] Performed By: #### 2 4323-8, , 3039-3 ####[facility] LEMOOREIA [id number] [facility] [place] [address] [place] Protein [Mass/Vol] 6.8 g/dL Normal 6.3-8.0 [facility] Comment on above: Order Comment: Speci men Type: BLOOD SPECIMENOrdering Facility: [facility] Address: [address] [place] [address] Performed By: #### 2 4323-8, , 3039-3 ####[facility] LABORATORYCLIA [id number] [facility] [place] [address] [place] Sodium [Moles/Vol] 139 mmol/L Normal 136-144 [facility] Comment on above: Order Comment: Speci men Type: BLOOD SPECIMENOrdering Facility: [facility] Address: [address] [place], [place] [address] Performed By: #### 2 4323-8, 96514-2, 3039-3 ####[facility] LABORATORYCLIA [id number] [facility] [place] [address] [place] Urea nitrogen [Mass/Vol] 6 mg/dL Low 7- [facility] Comment on above: Order Comment: Speci men Type: BLOOD SPECIMENOrdering Facility: [facility] Address: [address] [place], [place] [phone] Performed By: #### 2 4323-8, 96906-3, 3 ####[facility] LABORATORYCLIA [id number] [facility] [place] [address] [place] ECG COMPLETEon 08-04-2023 ECG COMPLETE Normal [facility] ED NOTEon 08-04-2023 ED NOTE HNO ID: [id number] Author: ANAM NAILS RN Service: Emergency Medicine Author Type: Registered Nurse Type: ED Notes Filed: 08/04/2023 14:44 Note Text: Pt remains unable to provide urine sample at this time. Normal [facility] ED NOTE HNO ID: [id number] Author: ANAM NAILS RN Service: Emergency Medicine Author Type: Registered Nurse Type: ED Notes Filed: 08/04/2023 14:43 Note Text: Pt unable to provide urine sample at this time. Normal [facility] ED NOTE HNO ID: [id number] Author: CORIE BILLINGSLEY, Medic Service: ? Author Type: Mid Level Project Manager and Roadside Mechanic Type: ED Notes Filed: 08/04/2023 09:52 Note Text: Pt also states she fell yesterday and LOC noted. Pt had had multiple episodes of diarrhea as well. Normal [facility] ED PROV NOTEon 08-04-2023 ED PROV NOTE Normal [facility] HIGH SENSITIVITY TROPONIN T (INITIAL)on 08-04-2023 Troponin T.cardiac High sensitivity method [Mass/Vol] <6 Normal <12 [facility] Comment on above: Order Comment: Geraldo marrero Type: BLOOD SPECIMENOrdering Facility: [facility] Address: [address] [place] [address] Result Comment: When assessing risk for acute [...] 30 day MACE. Performed By: #### L [id number] ####[facility] LABORATORYCLIA [id number] [address] [place] HIGH SENSITIVITY TROPONIN T (SECOND)on 08-04-2023 Troponin T.cardiac High sensitivity method [Mass/Vol] <6 Normal <12 [facility] Comment on above: Order Comment: Geraldo marrero Type: BLOOD SPECIMENOrdering Facility: [facility] Address: [address] [place] [address] Result Comment: When assessing risk for acute [...] 30 day MACE. Performed By: #### L [id number] ####[facility] LABORATORYCLIA [id number] [place] [address] [place] HISTORY PHYSICALon 4 HISTORY PHYSICAL Normal [facility] Lipase SerPl-cCncon 08-04-19 24 Lipase [Catalytic activity/Vol] 52 U/L Normal 16-61 [facility] Comment on above: Order Comment: Geraldo marrero Type: BLOOD SPECIMENOrdering Facility: [facility] Address: [address] [place] [address] Performed By: #### 2 4323-8, 67269-7, 0-3 ####[facility] LEMOOREIA [id number] [place] [address] [place] Magnesium SerPl-mCncon 08-03 Magnesium [Mass/Vol] 1.9 mg/dL Normal 1.7-2.3 [facility] Comment on above: Order Comment: Speci men Type: BLOOD SPECIMENOrdering Facility: [facility] Address: [address] [place] [address] Performed By: #### 2 4323-8, 18488-4, 3039-3 ####[facility] LEM[facility]OREIA [id number] [place] [address] [place] SEPSIS LACTATE W/ REFLEX (IN ITIAL)on 08-04-2023 Lactate [Moles/Vol] 1.5 mmol/L Normal 0.0-2.0 [facility] Comment on above: Order Comment: Speci men Type: BLOOD SPECIMENOrdering Facility: [facility] Address: [address] [place] [address] Performed By: #### S LACTR ####[facility] [id number] [place] [address] [place] Urinalysis complete panel (U )on 08-04-2023 Bilirubin Ql (U) Negative Normal Negative [facility] Comment on above: Order Comment: Speci men Type: URINE SPECIMENOrdering Facility: [facility] Address: [address] [place] [address] Performed By: #### 2 4356-8 ####[facility] LEM[facility]OREIA [id number] [place] [address] [place] Clarity (Unsp spec) Clear Normal Clear [facility] Comment on above: Order Comment: Speci men Type: URINE SPECIMENOrdering Facility: [facility] Address: [address] [place] [address] Performed By: #### 2 4356-8 ####[facility] LEM[facility]OREIA [id number] [place] [address] [place] Color (U) Yellow Normal Yellow [facility] Comment on above: Order Comment: Speci men Type: URINE SPECIMENOrdering Facility: [facility] Address: [address] [place] [address] Performed By: #### 2 4356-8 ####[facility] LEM[facility]IA [id number] [place] [address] [place] Glucose Test strip (U) [Mass/Vol] Negative Normal Trace, Negative [facility] Comment on above: Order Comment: Speci men Type: URINE SPECIMENOrdering Facility: [facility] Address: [address] [place] [address] Performed By: #### 2 4356-8 ####[facility] LEM[facility] [id number] [place] [address] [place] Hemoglobin Ql (U) Negative Normal Negative, Trace [facility] Comment on above: Order Comment: Speci men Type: URINE SPECIMENOrdering Facility: [facility] Address: [address] [place] [address] Performed By: #### 2 4356-8 ####[facility] LEM[facility] [id number] [place] [address] [place] Ketones Ql (U) Negative Normal Negative, Trace [facility] Comment on above: Order Comment: Speci men Type: URINE SPECIMENOrdering Facility: [facility] Address: [address] [place] [address] Performed By: #### 2 4356-8 ####[facility] LABORATORYIA [id number] [place] [address] [place] Leukocyte esterase Test strip Ql (U) Negative Normal Negative, 25 Patito/uL [facility] Comment on above: Order Comment: Speci men Type: URINE SPECIMENOrdering Facility: [facility] Address: [address] [place] [address] Performed By: #### 2 4356-8 ####[facility] LABORATORYIA [id number] [place] [address] [place] Nitrite Ql (U) Negative Normal Negative [facility] Comment on above: Order Comment: Speci men Type: URINE SPECIMENOrdering Facility: [facility] Address: [address] [place] [address] Performed By: #### 2 4356-8 ####[facility] [id number] [place] [address] [place] pH (U) 7.5 [pH] Normal 5.0-8.0 [facility] Comment on above: Order Comment: Speci men Type: URINE SPECIMENOrdering Facility: [facility] Address: [address] [place] [address] Performed By: #### 2 4356-8 ####[facility] [id number] [place] [address] [place] Protein (U) [Mass/Vol] Trace Normal Trace, Negative [facility] Comment on above: Order Comment: Speci men Type: URINE SPECIMENOrdering Facility: [facility] Address: [address] [place] [address] Performed By: #### 2 4356-8 ####[facility] [id number] [place] [address] [place] RBC LM.HPF (Urine sed) [#/Area] 0-3 /HPF Normal 0-3 /HPF [facility] Comment on above: Order Comment: Speci men Type: URINE SPECIMENOrdering Facility: [facility] Address: [address] [place] [address] Performed By: #### 2 4356-8 ####[facility] [id number] [place] [address] [place] Specific gravity (U) [Rel density] <1.005 Low 1.005-1.030 [facility] Comment on above: Order Comment: Speci men Type: URINE SPECIMENOrdering Facility: [facility] Address: [address] [place] [address] Performed By: #### 2 4356-8 ####[facility] [id number] [place] [address] [place] Urobilinogen Ql (U) Normal Normal Normal [facility] Comment on above: Order Comment: Speci men Type: URINE SPECIMENOrdering Facility: [facility] Address: [address] [place] [address] Performed By: #### 2 4356-8 ####[facility] LABORATORYCLIA [id number] [facility] [place] [address] [place] WBC LM.HPF (Urine sed) [#/Area] 0-5 /HPF Normal 0-5 /HPF [facility] Comment on above: Order Comment: Speci men Type: URINE SPECIMENOrdering Facility: [facility] Address: [address] [place] [address] Performed By: #### 2 4356-8 ####[facility] LABORATORYCLIA [id number] [place] [address] [place] XR CHEST 1V FRONTAL PORTon 0 08-04-2023 XR CHEST 1V FRONTAL PORT Normal [facility] Activated partial thrombopla stin time (aPTT) in platelet poor plasma by coagulation aOrdered By: Jeramy Cunningham on 07-31-2023 aPTT Coag (PPP) [Time] 27.0 s 25.1-36.5 [facility] Comment on above: A hematocrit value g reater than 55% may lead to inaccurate results in coagulation testing. Patients having hematocrit values >55% require a special collection tube for coagulation studies. Please contact the laboratory at [phone] for redraw instructions. Alanine aminotransferase [En zymatic activity/volume] in Serum or PlasmaOrdered By: Jeramy Cunningham on 07-31-2023 ALT [Catalytic activity/Vol] 29 U/L Normal 7-52 [facility] Comment on above: Performed By: #### A CORY, BRITTANIECG, CUU #### [facility] [address] Albumin [Mass/volume] in Ser um or Plasma by Bromocresol green (BCG) dye binding methoOrdered By: Jeramy Cunningham on 07-31-2023 Albumin BCG dye [Mass/Vol] 4.0 g/dL 3.5-5.7 [facility] Alkaline phosphatase [Enzyma tic activity/volume] in Serum or PlasmaOrdered By: Jeramy Cunningham on 07-31-2023 ALP [Catalytic activity/Vol] 58 U/L Normal 34-104 [facility] Comment on above: Performed By: #### A JOSESITO RAY, CUU #### [address] Aspartate aminotransferase [ Enzymatic activity/volume] in Serum or PlasmaOrdered By: Jeramy Cunningham on 07-31-2023 AST [Catalytic activity/Vol] 34 U/L Normal 13-39 [facility] Comment on above: Performed By: #### A JOSESITO RAY, CUU #### [address] Automated basophil %Ordered By: Jeramy Cunningham on 07-31-2023 Basophils/100 WBC (Bld) 0.6 % Normal . [facility] Comment on above: Performed By: #### A JOSESITO RAY, CUU #### [address] Automated basophil countOrde red By: Jeramy Cunningham on 07-31-2023 Basophils (Bld) [#/Vol] 0.0 10*3/uL Normal 0.0-0.2 [facility] Comment on above: Result Comment: PERF ORMED BY: [place] [address] PATHOLOGIST FINISHING FRAME RUNNER BAUTISTA BAKER M.D. Performed By: #### A JOSESITO RAY, CUU #### [address] Automated blood monocyte cou ntOrdered By: Jeramy Cunningham on 07-31-2023 Monocytes (Bld) [#/Vol] 0.2 10*3/uL Normal 0.0-0.8 [facility] Comment on above: Performed By: #### A JOSESITO RAY, CUU #### [address] Automated eosinophil %Ordere d By: Jeramy Cunningham on 07-31-2023 Eosinophils/100 WBC (Bld) 0.2 % Normal . [facility] Comment on above: Performed By: #### A JOSESITO RAY, CUU #### [address] Automated eosinophil countOr dered By: Jeramy Cunningham on 07-31-2023 Eosinophils (Bld) [#/Vol] 0.0 10*3/uL Normal 0.0-0.45 [facility] Comment on above: Performed By: #### A CORY ELIS, CUU #### [address] Automated monocyte %Ordered By: Jeramy Cunningham on 07-31-2023 Monocytes/100 WBC (Bld) 3.1 % Normal . [facility] Comment on above: Performed By: #### A JOSESITO RAY, CUU #### [address] Automated neutrophil %Ordere d By: Jeramy Cunningham on 07-31-2023 Neutrophils/100 WBC (Bld) 84.9 % Normal . [facility] Comment on above: Performed By: #### A JOSESITO RAY, CUU #### [address] Basic Metabolic Panelon 07-16 Creatinine Clr Calc Pharmacy 120.10 Normal [facility] Comment on above: Performed By: #### H EPATIC, MG, LIPASE, CMP, CBC #### [address] GFR/1.73 sq M.predicted MDRD (S/P/Bld) [Vol rate/Area] mL/min/{1.73_m2} Normal [facility] Comment on above: Performed By: #### H EPATIC, MG, LIPASE, CMP, CBC #### [address] Bilirubin Test strip Ql (U)O rdered By: Jeraym Cunningham on 07-31-2023 Bilirubin Ql (U) Negative Negative [facility] Bilirubin.direct [Mass/volum e] in Serum or PlasmaOrdered By: Jeramy Cunningham on 07-31-2023 Bilirubin.direct [Mass/Vol] 0.10 mg/dL 0.03-0.18 [facility] Bilirubin.total [Mass/volume ] in Serum or PlasmaOrdered By: Jeramy Cunningham on 07-31-2023 Bilirubin [Mass/Vol] 0.4 mg/dL Normal 0.3-1.0 [facility] Comment on above: Performed By: #### A DDONUAPLUS, CG, CUU #### [address] abdomen pelvis w conon CT abdomen pelvis w con [facility] [place] [address] [place] [address] CT Scan Report Signed Patient: Abbey Garcia MR#: [id number] : 1990 Acct:[id number] Age/Sex: 33 / F ADM Date: 07/31/23 Loc: ER Room: Type: [facility] ER Attending Dr: Copies to: Jeramy [...] Jason Palomo M.D.07/31/2023 12:28 PM Dictation Location: [place] [address] Transcribed By: [facility] 07/31/23 1228 Dictated By: Jason Palomo DO 07/31/23 1223 Signed By: 07/31/23 1228 Normal [facility] Calcium [Mass/volume] in Ser um or PlasmaOrdered By: Jeramy Cunningham on 07-31-2023 Calcium [Mass/Vol] 8.5 mg/dL Low 8.6-10.3 [facility] Comment on above: Performed By: #### H EPATIC, MG, LIPASE, CMP, CBC #### [facility] [address] [place] [address] [place] Carbon dioxide, total [Moles /volume] in Serum or PlasmaOrdered By: Jeramy Cunningham on 07-31-2023 CO2 [Moles/Vol] 26.1 mmol/L Normal 21.0-31.0 [facility] Comment on above: Performed By: #### H EPATIC, MG, LIPASE, CMP, CBC #### [facility] [address] [place] [address] [place] Chloride [Moles/volume] in S elder or PlasmaOrdered By: Jeramy Cunningham on 07-31-2023 Chloride [Moles/Vol] 107 mmol/L Normal 98-107 [facility] Comment on above: Performed By: #### H EPATIC, MG, LIPASE, CMP, CBC #### [facility] [address] [place] [address] [place] Color of Urine by AutoOrdere d By: Jeramy Cunningham on 07-31-2023 Color (U) Colorless Normal Yellow [facility] Comment on above: Order Comment: Name Collection Type:: Clean-Voided Midstream Performed By: #### H EPATIC, MG, LIPASE, CMP, CBC #### [address] Complete Blood Count Auto Di ffon 07-31-2023 Mean Corpuscular HGB Conc 33.8 g/dL Normal 32.0-35.0 [facility] Comment on above: Performed By: #### A ALIYAH RAYG, CUU #### [address] Monocytes/100 WBC (Bld) 14.62 % Normal 0.00-20.00 [facility] Comment on above: Performed By: #### A ALIYAH RAYG, CUU #### [address] NRBC% 0.1 /100{WBC} Normal 0-0.5 [facility] Comment on above: Performed By: #### A JOSESITO RAY, CUU #### [address] Creatinine [Mass/volume] in Serum or PlasmaOrdered By: Jeramy Cunningham on 07-31-2023 Creatinine [Mass/Vol] 0.70 mg/dL Normal 0.60-1.20 [facility] Comment on above: Performed By: #### H EPATIC, MG, LIPASE, CMP, CBC #### [address] Erythrocyte distribution wid th [Ratio] by Automated countOrdered By: Jeramy Cunningham on 07-31-2023 Erythrocyte distribution width (RBC) [Ratio] 14.2 % Normal 11.9-15.3 [facility] Comment on above: Performed By: #### A CORY, BRITTANIECG, CUU #### [address] Erythrocytes [#/volume] in B lood by Automated countOrdered By: Jeramy Cunningham on 07-31-2023 RBC (Bld) [#/Vol] 3.75 10*6/uL Normal 3.60-5.00 [facility] Comment on above: Performed By: #### A CORY, CG, CUU #### [address] Glucose [Mass/volume] in Ser um or PlasmaOrdered By: Jeramy Cunningham on 07-31-2023 Glucose [Mass/Vol] 91 mg/dL Normal 70-100 [facility] Comment on above: ADA recommended refe rence rangeRandom Glucose Reference Range is dependent on time and content of last meal. Glucose of more than 200 mg/dL in a nonstressed, ambulatory subject supports the diagnosis of Diabetes Mellitus. Result Comment: [place] om Glucose Reference Range is dependent on time and content of last meal. Glucose of more than 200 mg/dL in a nonstressed, ambulatory subject supports the diagnosis of Diabetes Mellitus. ADA recommended reference range Performed By: #### H EPATIC, MG, LIPASE, CMP, CBC #### [address] Glucose [Mass/volume] in Uri ne by Test stripOrdered By: Jeramy Cunningham on 07-31-2023 Glucose Test strip (U) [Mass/Vol] Normal mg/dL Normal [facility] HCG ( test) IA.rapi d Ql (U)Ordered By: Jeramy Cunningham on 07-31-2023 HCG ( test) Ql (U) Negative [facility] HCG,Urineon 07-31-2023 Beta HCG ( test) Ql (U) Negative Normal [facility] Comment on above: Order Comment: Name Collection Type:: Clean-Voided Midstream Result Comment: PERF ORMED BY: [place] [address] PATHOLOGIST FINISHING FRAME RUNNER BAUTISTA BAKER M.D. Performed By: #### H EPATIC, MG, LIPASE, CMP, CBC #### [address] Hematocrit [Volume Fraction] of Blood by Automated countOrdered By: Jeramy Cunningham on 06-15-2024 Hematocrit (Bld) [Volume fraction] 33.2 % Low 34.0-46.4 [facility] Comment on above: Performed By: #### A JOSESITO RAY, CUU #### [address] Hemoglobin Test strip Ql (U) Ordered By: Jeramy Cunningham on 07-31-2023 Hemoglobin Ql (U) Negative Negative [facility] Hemoglobin [Mass/volume] in BloodOrdered By: Jeramy Cunningham on 07-31-2023 Hemoglobin (Bld) [Mass/Vol] 11.2 g/dL Low 11.8-15.4 [facility] Comment on above: Performed By: #### A ALIYAH RAYG, CUU #### [address] Hepatic Panelon 07-31-2023 Albumin [Mass/Vol] 4.0 g/dL Normal 3.5-5.7 [facility] Comment on above: Performed By: #### A CORY, ALIYAHG, CUU #### [address] Bilirubin,Indirect 0.3 mg/dL Normal [facility] Comment on above: Performed By: #### A CORY, ALIYAHG, CUU #### [address] Bilirubin.indirect [Mass/Vol] 0.10 mg/dL Normal 0.03-0.18 [facility] Comment on above: Performed By: #### A CORY, ALIYAHG, CUU #### [address] INR in Platelet poor plasma by Coagulation assayOrdered By: Jeramy Cunningham on 07-31-2023 INR Coag (PPP) [Relative time] 1.1 {INR} Normal [facility] Comment on above: INR Therapeutic Rang [...] H EPATIC, MG, LIPASE, CMP, CBC #### [place] [address] [place] Ketones [Presence] in Urine by Test stripOrdered By: Jeramy Cunningham on 07-31-2023 Ketones Ql (U) Negative Normal Negative [facility] Comment on above: Order Comment: Name Collection Type:: Clean-Voided Midstream Performed By: #### H EPATIC, MG, LIPASE, CMP, CBC #### [place] [address] [place] Leukocyte esterase [Presence ] in Urine by Test stripOrdered By: Jeramy Cunningham on 07-31-2023 Leukocyte esterase Test strip Ql (U) Negative Normal Negative [facility] Comment on above: Order Comment: Name Collection Type:: Clean-Voided Midstream Performed By: #### H EPATIC, MG, LIPASE, CMP, CBC #### [facility] [address] [place] [address] [place] Leukocytes [#/volume] correc darvin for nucleated erythrocytes in Blood by Automated counOrdered By: Jeramy Cunningham on 07-31-2023 WBC corrected for nucl RBC Auto (Bld) [#/Vol] 7.7 10*3/uL 3.8-11.6 [facility] Leukocytes [#/volume] in Blo od by Automated countOrdered By: Jeramy Cunningham on 07-31-2023 WBC (Bld) [#/Vol] 7.7 10*3/uL Normal 3.8-11.6 [facility] Comment on above: Performed By: #### A BRITTANIE RAYCJarrod, CUU #### [address] Lipase [Enzymatic activity/v olume] in Serum or PlasmaOrdered By: Jeramy Cunningham on 07-31-2023 Lipase [Catalytic activity/Vol] 36.0 U/L Normal 11.0-82.0 [facility] Comment on above: Result Comment: PERF ORMED BY: [place] [address] PATHOLOGIST [employer]ISHING [employer] BAUTISTA BAKER M.D. Performed By: #### H EPATIC, MG, LIPASE, CMP, CBC #### [address] Lymphocytes [#/volume] in Bl ood by Automated countOrdered By: Jeramy Cunningham on 07-31-2023 Lymphocytes (Bld) [#/Vol] 0.9 10*3/uL Low 1.00-4.8 [facility] Comment on above: Performed By: #### A CORY [facility] #### [address] Lymphocytes/100 leukocytes i n Blood by Automated countOrdered By: Jeramy Cunningham on 07-31-2023 Lymphocytes/100 WBC (Bld) 11.2 % Normal . [facility] Comment on above: Performed By: #### A CORY ELIS, CUU #### [place] [address] [place] MCH [Entitic mass] by Automa darvin countOrdered By: Jeramy Cunningham on 07-31-2023 MCH (RBC) [Entitic mass] 29.9 pg Normal 24.7-34.3 [facility] Comment on above: Performed By: #### A CORY [facility] #### [address] MCHC Auto (RBC) [Mass/Vol]Or dered By: Jeramy Cunningham on 07-31-2023 MCHC (RBC) [Mass/Vol] 33.8 g/dL 32.0-35.0 [facility] MCV [Entitic volume] by Auto mated countOrdered By: Jeramy Cunningham on 07-31-2023 MCV (RBC) [Entitic vol] 88.6 fL Normal 80-100 [facility] Comment on above: Performed By: #### A CORY, [facility], CUU #### [facility] [address] [place] [address] [place] Monocyte distribution width [Entitic volume] in Blood by AutomatedOrdered By: Jeramy Cunningham on 07-31-2023 Monocyte distribution width Auto (Bld) [Entitic vol] 14.62 % 0.00-20.00 [facility] Neutrophils [#/volume] in Bl ood by Automated countOrdered By: Jeramy Cunningham on 07-31-2023 Neutrophils (Bld) [#/Vol] 6.5 10*3/uL Normal 1.8-7.7 [facility] Comment on above: Performed By: #### A CORY, [facility], CUU #### [facility] [address] Nitrite Test strip Ql (U)Ord ered By: Jeramy Cunningham on 07-31-2023 Nitrite Ql (U) Negative Negative [facility] No Panel InformationOrdered By: Jeramy Cunningham on 07-31-2023 Estimated GFR (CKD-EPI) > 60.0 mL/Min [facility] Creatinine Clearance (Chem 120.10 [facility] Nucleated erythrocytes [Pres ence] in Blood by Automated countOrdered By: Jeramy Cunningham on 07-31-2023 Nucleated RBC Auto Ql (Bld) 0.1 /100{WBC} 0-0.5 [facility] Partial Thromboplastin Timeo n 07-31-2023 aPTT Coag (Bld) [Time] 27.0 s Normal 25.1-36.5 [facility] Comment on above: Result Comment: A he matocrit value greater than 55% may lead to inaccurate results in coagulation testing. Patients having hematocrit values >55% require a special collection tube for coagulation studies. Please contact the laboratory at [phone] for redraw instructions. PERFORMED BY: [place] [address] PATHOLOGIST FINISHING [employer]NER BAUTISTA BAKER M.D. Performed By: #### H EPATIC, MG, LIPASE, CMP, CBC #### [address] Platelet mean volume [Entiti c volume] in Blood by Automated countOrdered By: Jeramy Cunningham on 07-31-2023 Platelet mean volume (Bld) [Entitic vol] 8.5 fL Normal 6.3-10.7 [facility] Comment on above: Performed By: #### A DDONUAJESSICA, ALIYAHG, CUU #### [address] Platelets [#/volume] in Bloo d by Automated countOrdered By: Jeramy Cunningham on 07-31-2023 Platelets (Bld) [#/Vol] 276 10*3/uL Normal 150-450 [facility] Comment on above: Performed By: #### A DDONUAPLUS, BRITTANIECG, CUU #### [address] Potassium [Moles/volume] in Serum or PlasmaOrdered By: Jeramy Cunningham on 07-31-2023 Potassium [Moles/Vol] 3.8 mmol/L Normal 3.5-5.1 [facility] Comment on above: Performed By: #### H EPATIC, MG, LIPASE, CMP, CBC #### [address] Protein Test strip (U) [Mass /Vol]Ordered By: Jeramy Cunningham on 07-31-2023 Protein (U) [Mass/Vol] Negative Negative [facility] Protein [Mass/volume] in Ser um or PlasmaOrdered By: Jeramy Cunningham on 07-31-2023 Protein [Mass/Vol] 6.7 g/dL Normal 6.4-8.9 [facility] Comment on above: Performed By: #### A DDONUAPLUS, UHCG, CUU #### [address] Prothrombin time (PT)Ordered By: Jeramy Cunningham on 07-31-2023 PT Coag (PPP) [Time] 12.3 s Normal 9.0-12.9 [facility] Comment on above: A hematocrit value g reater than 55% may lead to inaccurate results in coagulation testing. Patients having hematocrit values >55% require a special collection tube for coagulation studies. Please contact the laboratory at [phone] for redraw instructions. Result Comment: A he matocrit value greater than 55% may lead to inaccurate results in coagulation testing. Patients having hematocrit values >55% require a special collection tube for coagulation studies. Please contact the laboratory at [phone] for redraw instructions. Performed By: #### H EPATIC, MG, LIPASE, CMP, CBC #### [address] Serum globulin measurement b y calculation (mass/volume)Ordered By: Jeramy Cunningham on 07-31-2023 Globulin (S) [Mass/Vol] 2.7 g/dL Normal [facility] Comment on above: Performed By: #### A DDONUAPLUS, CG, CUU #### [address] Serum or plasma albumin/glob ulin mass ratioOrdered By: Jeramy Cunningham on 07-31-2023 Albumin/Globulin [Mass ratio] 1.5 {ratio} [facility] Comment on above: Performed By: #### A DDONUAPLUS, UHCG, CUU #### [address] Serum or plasma anion gap de terminationOrdered By: Jeramy Cunningham on 07-31-2023 Anion gap [Moles/Vol] 10.7 mmol/L Normal 6.0-15.0 [facility] Comment on above: Performed By: #### H EPATIC, MG, LIPASE, CMP, CBC #### [address] Serum or plasma non-glucuron idated bilirubin measurement (mass/volume)Ordered By: Jeramy Cunningham on 07-31-2023 Bilirubin.indirect [Mass/Vol] 0.3 mg/dL [facility] Sodium [Moles/volume] in Ser um or PlasmaOrdered By: Jeramyaundrea Ballardzi on 07-31-2023 Sodium [Moles/Vol] 140 mmol/L Normal 136-145 [facility] Comment on above: Performed By: #### H EPATIC, MG, LIPASE, CMP, CBC #### [facility] [address] Specific gravity Test strip (U) [Rel density]Ordered By: Jeramy Cunningham on 07-31-2023 Specific gravity (U) [Rel density] 1.006 1.001-1.030 [facility] Urea nitrogen [Mass/volume] in Serum or PlasmaOrdered By: Jeramy Cunningham on 07-31-2023 Urea nitrogen [Mass/Vol] 16 mg/dL Normal 7-25 [facility] Comment on above: Performed By: #### H EPATIC, MG, LIPASE, CMP, CBC #### [address] Urinalysison 07-31-2023 Bilirubin,Urine Negative Normal Negative [facility] Comment on above: Order Comment: Name Collection Type:: Clean-Voided Midstream Performed By: #### H EPATIC, MG, LIPASE, CMP, CBC #### [address] Glucose Ql (U) Normal Normal Normal [facility] Comment on above: Order Comment: Name Collection Type:: Clean-Voided Midstream Performed By: #### H EPATIC, MG, LIPASE, CMP, CBC #### [place] [address] [place] Nitrite,Urine Negative Normal Negative [facility] Comment on above: Order Comment: Name Collection Type:: Clean-Voided Midstream Performed By: #### H EPATIC, MG, LIPASE, CMP, CBC #### [place] [id number] [facility] Occult Blood,Urine Negative Normal Negative [facility] Comment on above: Order Comment: Name Collection Type:: Clean-Voided Midstream Performed By: #### H EPATIC, MG, LIPASE, CMP, CBC #### [address] Protein,Urine Negative Normal Negative [facility] Comment on above: Order Comment: Name Collection Type:: Clean-Voided Midstream Performed By: #### H EPATIC, MG, LIPASE, CMP, CBC #### [address] Specificy [place],Urine 1.006 Normal 1.001-1.030 [facility] Comment on above: Order Comment: Name Collection Type:: Clean-Voided Midstream Performed By: #### H EPATIC, MG, LIPASE, CMP, CBC #### [address] Urobilinogen,Urine Normal Normal Normal [facility] Comment on above: Order Comment: Name Collection Type:: Clean-Voided Midstream Performed By: #### H EPATIC, MG, LIPASE, CMP, CBC #### [address] Urine appearanceOrdered By: Jeramy Cunningham on 07-31-2023 Appearance (U) Clear Normal Clear [facility] Comment on above: Order Comment: Name Collection Type:: Clean-Voided Midstream Performed By: #### H EPATIC, MG, LIPASE, CMP, CBC #### [address] Urobilinogen Test strip (U) [Mass/Vol]Ordered By: Jeramy Cunningham on 07-31-2023 Urobilinogen (U) [Mass/Vol] Normal mg/dL Normal [facility] pH of Urine by Test stripOrd ered By: Jeramy Cunningham on 07-31-2023 pH (U) 8.0 [pH] Normal 5.0-9.0 [facility] Comment on above: Order Comment: Name Collection Type:: Clean-Voided Midstream Performed By: #### H EPATIC, MG, LIPASE, CMP, CBC #### [address] CBC W Auto Differential pane l (Bld)on 07-30-2023 Basophils (Bld) [#/Vol] 0.04 10*3/uL Normal <0.11 [facility] Comment on above: Order Comment: Speci men Type: BLOOD SPECIMENOrdering Facility: [facility] Address: [address] [place] [address] Performed By: #### 5 7021-8 ####[facility] LABCLIA [id number] [place] [address] [place] Basophils/100 WBC (Bld) 0.4 % Normal [facility] Comment on above: Order Comment: Speci men Type: BLOOD SPECIMENOrdering Facility: [facility] Address: [address] [place] [address] Performed By: #### 5 7021-8 ####[facility] LABCLIA [id number] [place] [address] [place] Differential cell count method Nom (Bld) Auto Normal [facility] Comment on above: Order Comment: Speci men Type: BLOOD SPECIMENOrdering Facility: [facility] Address: [address] [place] [address] Performed By: #### 5 7021-8 ####[facility] LABCLIA [id number] [place] [address] [place] Eosinophils (Bld) [#/Vol] 0.05 10*3/uL Normal <0.46 [facility] Comment on above: Order Comment: Speci men Type: BLOOD SPECIMENOrdering Facility: [facility] Address: [address] [place] [address] Performed By: #### 5 7021-8 ####[facility] LABCLIA [id number] [place] [address] [place] Eosinophils/100 WBC (Bld) 0.5 % Normal [facility] Comment on above: Order Comment: Speci men Type: BLOOD SPECIMENOrdering Facility: [facility] Address: [address] [place] [address] Performed By: #### 5 7021-8 ####[facility] LABIA [id number] [place] [address] [place] Erythrocyte distribution width (RBC) [Ratio] 13.0 % Normal 11.5-15.0 [facility] Comment on above: Order Comment: Speci men Type: BLOOD SPECIMENOrdering Facility: [facility] Address: [address] [place] [address] Performed By: #### 5 7021-8 ####[facility] LABIA [id number] [place] [address] [place] Hematocrit (Bld) [Volume fraction] 33.7 % Low 36.0-46.0 [facility] Comment on above: Order Comment: Speci men Type: BLOOD SPECIMENOrdering Facility: [facility] Address: [address] [place] [address] Performed By: #### 5 7021-8 ####[facility] LABIA [id number] [place] [address] [place] Hemoglobin (Bld) [Mass/Vol] 11.1 g/dL Low 11.5-15.5 [facility] Comment on above: Order Comment: Speci men Type: BLOOD SPECIMENOrdering Facility: [facility] Address: [address] [place] [address] Performed By: #### 5 7021-8 ####[facility] LABCLIA [id number] [place] [address] [place] Immature granulocytes (Bld) [#/Vol] 0.03 10*3/uL Normal <0.10 [facility] Comment on above: Order Comment: Speci men Type: BLOOD SPECIMENOrdering Facility: [facility] Address: [address] [place] [address] Performed By: #### 5 7021-8 ####[facility] LABCLIA [id number] [place] [address] [place] Immature granulocytes/100 WBC (Bld) 0.3 % Normal [facility] Comment on above: Order Comment: Speci men Type: BLOOD SPECIMENOrdering Facility: [facility] Address: [address] [place] [address] Performed By: #### 5 7021-8 ####[facility] LABIA [id number] [place] [address] [place] Lymphocytes (Bld) [#/Vol] 2.10 10*3/uL Normal 1.00-4.00 [facility] Comment on above: Order Comment: Speci men Type: BLOOD SPECIMENOrdering Facility: [facility] Address: [address] [place] [address] Performed By: #### 5 7021-8 ####[facility] LABIA [id number] [place] [address] [place] Lymphocytes/100 WBC (Bld) 22.0 % Normal [facility] Comment on above: Order Comment: Speci men Type: BLOOD SPECIMENOrdering Facility: [facility] Address: [address] [place] [address] Performed By: #### 5 7021-8 ####[facility] [id number] [place] [address] [place] MCH (RBC) [Entitic mass] 29.8 pg Normal 26.0-34.0 [facility] Comment on above: Order Comment: Speci men Type: BLOOD SPECIMENOrdering Facility: [facility] Address: [address] [place] [address] Performed By: #### 5 7021-8 ####[facility] LABIA [id number] [place] [address] [place] MCHC (RBC) [Mass/Vol] 32.9 g/dL Normal 30.5-36.0 [facility] Comment on above: Order Comment: Speci men Type: BLOOD SPECIMENOrdering Facility: [facility] Address: [address] [place] [address] Performed By: #### 5 7021-8 ####[facility] LABCLIA [id number] [place] [address] [place] MCV (RBC) [Entitic vol] 90.3 fL Normal 80.0-100.0 [facility] Comment on above: Order Comment: Speci men Type: BLOOD SPECIMENOrdering Facility: [facility] Address: [address] [place] [address] Performed By: #### 5 7021-8 ####[facility] LABIA [id number] [place] [address] [place] Monocytes (Bld) [#/Vol] 0.57 10*3/uL Normal <0.87 [facility] Comment on above: Order Comment: Speci men Type: BLOOD SPECIMENOrdering Facility: [facility] Address: [address] [place] [address] Performed By: #### 5 7021-8 ####[facility] LABIA [id number] [place] [address] [place] Monocytes/100 WBC (Bld) 6.0 % Normal [facility] Comment on above: Order Comment: Speci men Type: BLOOD SPECIMENOrdering Facility: [facility] Address: [address] [place] [address] Performed By: #### 5 7021-8 ####[facility] LABCLIA [id number] [place] [address] [place] Neutrophils (Bld) [#/Vol] 6.74 10*3/uL Normal 1.45-7.50 [facility] Comment on above: Order Comment: Speci men Type: BLOOD SPECIMENOrdering Facility: [facility] Address: [address] [place] [address] Performed By: #### 5 7021-8 ####[facility] LABCLIA [id number] [place] [address] [place] Neutrophils/100 WBC (Bld) 70.8 % Normal [facility] Comment on above: Order Comment: Speci men Type: BLOOD SPECIMENOrdering Facility: [facility] Address: [address] [place] [address] Performed By: #### 5 7021-8 ####[facility] LABCLIA [id number] [place] [address] [place] Nucleated RBC (Bld) [#/Vol] 10*3/uL Normal <0.01 [facility] Comment on above: Order Comment: Speci men Type: BLOOD SPECIMENOrdering Facility: [facility] Address: [address] [place] [address] Performed By: #### 5 7021-8 ####[facility] LABCLIA [id number] [place] [address] [place] Nucleated RBC/100 WBC (Bld) [Ratio] 0.0 /100 WBC Normal [facility] Comment on above: Order Comment: Speci men Type: BLOOD SPECIMENOrdering Facility: [facility] Address: [address] [place] [address] Performed By: #### 5 7021-8 ####[facility] LABCLIA [id number] [place] [address] [place] Platelet mean volume (Bld) [Entitic vol] 10.3 fL Normal 9.0-12.7 [facility] Comment on above: Order Comment: Speci men Type: BLOOD SPECIMENOrdering Facility: [facility] Address: [address] [place] [address] Performed By: #### 5 7021-8 ####[facility] LABCLIA [id number] [place] [address] [place] Platelets (Bld) [#/Vol] 258 10*3/uL Normal 150-400 [facility] Comment on above: Order Comment: Speci men Type: BLOOD SPECIMENOrdering Facility: [facility] Address: [address] [place] [address] Performed By: #### 5 7021-8 ####[facility] LABCLIA [id number] [place] [address] [place] RBC (Bld) [#/Vol] 3.73 10*6/uL Low 3.90-5.20 [facility] Comment on above: Order Comment: Speci men Type: BLOOD SPECIMENOrdering Facility: [facility] Address: [address] [place] [address] Performed By: #### 5 7021-8 ####[facility] LABCLIA [id number] [place] [address] [place] WBC (Bld) [#/Vol] 9.53 10*3/uL Normal 3.70-11.00 [facility] Comment on above: Order Comment: Speci men Type: BLOOD SPECIMENOrdering Facility: [facility] Address: [address] [place] [address] Performed By: #### 5 7021-8 ####[facility] LABIA [id number] [place] [address] [place] Comprehensive metabolic 2000 panelon 07-30-2023 Albumin [Mass/Vol] 4.0 g/dL Normal 3.9-4.9 [facility] Comment on above: Order Comment: Speci men Type: BLOOD SPECIMENOrdering Facility: [facility] Address: [address] [place] [address] Performed By: #### 2 4323-8 ####[facility] LABIA [id number] [place] [address] [place] ALP [Catalytic activity/Vol] 64 U/L Normal 34-123 [facility] Comment on above: Order Comment: Speci men Type: BLOOD SPECIMENOrdering Facility: [facility] Address: [address] [place] [id number] Performed By: #### 2 4323-8 ####[facility] LABCLIA [id number] [place] [address] [place] ALT [Catalytic activity/Vol] 30 U/L Normal 7-38 [facility] Comment on above: Order Comment: Speci men Type: BLOOD SPECIMENOrdering Facility: [facility] Address: [address] [place] [address] Performed By: #### 2 4323-8 ####[facility] LABCLIA [id number] [place] [address] [place] Anion gap [Moles/Vol] 12 mmol/L Normal 8-15 [facility] Comment on above: Order Comment: Speci men Type: BLOOD SPECIMENOrdering Facility: [facility] Address: [address] [place] [address] Performed By: #### 2 4323-8 ####[facility] LABCLIA [id number] [place] [address] [place] AST [Catalytic activity/Vol] 30 U/L Normal 13-35 [facility] Comment on above: Order Comment: Speci men Type: BLOOD SPECIMENOrdering Facility: [facility] Address: [address] [place] [address] Performed By: #### 2 4323-8 ####[facility] LABCLIA [id number] [place] [address] [place] Bilirubin [Mass/Vol] 0.2 mg/dL Normal 0.2-1.3 [facility] Comment on above: Order Comment: Speci men Type: BLOOD SPECIMENOrdering Facility: [facility] Address: [address] [id number] Performed By: #### 2 4323-8 ####[facility] LABCLIA [id number] [place] [address] [place] Calcium [Mass/Vol] 8.7 mg/dL Normal 8.5-10.2 [facility] Comment on above: Order Comment: Speci men Type: BLOOD SPECIMENOrdering Facility: [facility] Address: [address] [place] [address] Performed By: #### 2 4323-8 ####[facility] LABCLIA [id number] [place] [address] [place] Chloride [Moles/Vol] 105 mmol/L Normal 98-107 [facility] Comment on above: Order Comment: Speci men Type: BLOOD SPECIMENOrdering Facility: [facility] Address: [address] [place] [address] Performed By: #### 2 4323-8 ####[facility] LABCLIA [id number] [place] [address] [place] CO2 [Moles/Vol] 22 mmol/L Normal 22-30 [facility] Comment on above: Order Comment: Speci men Type: BLOOD SPECIMENOrdering Facility: [facility] Address: [address] [place] [address] Performed By: #### 2 4323-8 ####[facility] LABCLIA [id number] [place] [address] [place] Creatinine [Mass/Vol] 0.59 mg/dL Normal 0.58-0.96 [facility] Comment on above: Order Comment: Speci men Type: BLOOD SPECIMENOrdering Facility: [facility] Address: [address] [place] [address] Performed By: #### 2 4323-8 ####[facility] LABCLIA [id number] [place] [address] [place] Creatinine and Glomerular filtration rate.predicted panel (S/P/Bld) 121 mL/min/1.73m??? Normal >=60 [facility] Comment on above: Order Comment: Speci men Type: BLOOD SPECIMENOrdering Facility: [facility] Address: [address] [place] [address] Result Comment: Jessica mated Glomerular Filtration Rate [...] actual GFR. Performed By: #### 2 4323-8 ####[facility] LABCLIA [id number] [place] [address] [place] Glucose [Mass/Vol] 88 mg/dL Normal 74-99 [facility] Comment on above: Order Comment: Speci men Type: BLOOD SPECIMENOrdering Facility: [facility] Address: [address] [place] [address] Result Comment: The [place] [employer] (ADA) provides guidance for cutoff [...] Standards of Medical Care in Diabetes 2016, [place] [employer]. Diabetes Care. 2016.39(Suppl 1). Performed By: #### 2 4323-8 ####[facility] LABCLIA [id number] [place] [address] [place] Potassium [Moles/Vol] 4.0 mmol/L Normal 3.7-5.1 [facility] Comment on above: Order Comment: Geraldo marrero Type: BLOOD SPECIMENOrdering Facility: [facility] Address: [address] [place] [address] Performed By: #### 2 4323-8 ####[facility] LABCLIA [id number] [place] [address] [place] Protein [Mass/Vol] 6.5 g/dL Normal 6.3-8.0 [facility] Comment on above: Order Comment: Speci men Type: BLOOD SPECIMENOrdering Facility: [facility] Address: [address] [place] [address] Performed By: #### 2 4323-8 ####[facility] LABCLIA [id number] [place] [address] [place] Sodium [Moles/Vol] 139 mmol/L Normal 136-144 [facility] Comment on above: Order Comment: Speci men Type: BLOOD SPECIMENOrdering Facility: [facility] Address: [address] [place] [address] Performed By: #### 2 4323-8 ####[facility] LABCLIA [id number] [place] [address] [place] Urea nitrogen [Mass/Vol] 13 mg/dL Normal 7-21 [facility] Comment on above: Order Comment: Speci men Type: BLOOD SPECIMENOrdering Facility: [facility] Address: [address] [place] [address] Performed By: #### 2 4323-8 ####[facility] LABCLIA [id number] [place] [address] [place] Basic metabolic 2000 panelon 07-20-2023 Anion gap [Moles/Vol] 14 mmol/L Normal 9-18 [facility] Comment on above: Order Comment: Speci men Type: BLOOD SPECIMENOrdering Facility: [facility] Address: [address] [place] [address] Performed By: #### 2 777-1, 59975-4, 99471-2 ####[facility] LABORATORYCLIA [id number] [place] [address] [place] Calcium [Mass/Vol] 8.9 mg/dL Normal 8.5-10.2 [facility] Comment on above: Order Comment: Speci men Type: BLOOD SPECIMENOrdering Facility: [facility] Address: [address] [place] [address] Performed By: #### 2 777-1, 58467-5, ####[facility] LABORATORYCLIA [id number] [place] [address] [place] Chloride [Moles/Vol] 110 mmol/L High 97-105 [facility] Comment on above: Order Comment: Speci men Type: BLOOD SPECIMENOrdering Facility: [facility] Address: [address] [place] [address] Performed By: #### 2 777-1, 79533-9, ####[facility] LABORATORYCLIA [id number] [address] [address] [place] CO2 [Moles/Vol] 19 mmol/L Low 22-30 [facility] Comment on above: Order Comment: Speci men Type: BLOOD SPECIMENOrdering Facility: [facility] Address: [address] [place] [address] Performed By: #### 2 777-1, , ####[facility] LABORATORYCLIA [id number] [address] [address] [place] Creatinine [Mass/Vol] 0.76 mg/dL Normal 0.58-0.96 [facility] Comment on above: Order Comment: Speci men Type: BLOOD SPECIMENOrdering Facility: [facility] Address: [address] [place] [address] Performed By: #### 2 777-1, , ####[facility] LABORATORYCLIA [id number] [address] [address] [place] Creatinine and Glomerular filtration rate.predicted panel (S/P/Bld) 106 mL/min/1.73m??? Normal >=60 [facility] Comment on above: Order Comment: Speci men Type: BLOOD SPECIMENOrdering Facility: [facility] Address: [address] [place] [address] Result Comment: Jessica mated Glomerular Filtration Rate [...] actual GFR. Performed By: #### 2 777-1, 29701-6, ####[facility] LABORATORYCLIA [id number] [place] [address] [place] Glucose [Mass/Vol] 97 mg/dL Normal 74-99 [facility] Comment on above: Order Comment: Geraldo marrero Type: BLOOD SPECIMENOrdering Facility: [facility] Address: [address] [place] [address] Result Comment: The [place] [employer] (ADA) provides guidance for cutoff [...] Standards of Medical Care in Diabetes 2016, [place] [employer]. Diabetes Care. 2016.39(Suppl 1). Performed By: #### 2 777-1, , ####[facility] LABORATORYCLIA [id number] [address] [place] [address] [place] Potassium [Moles/Vol] 4.0 mmol/L Normal 3.7-5.1 [facility] Comment on above: Order Comment: Geraldo marrero Type: BLOOD SPECIMENOrdering Facility: [facility] Address: [address] [place] [address] Performed By: #### 2 777-1, 58322-9, ####[facility] LABORATORYCLIA [id number] [address] [place] [address] [place] Sodium [Moles/Vol] 143 mmol/L Normal 136-144 [facility] Comment on above: Order Comment: Speci men Type: BLOOD SPECIMENOrdering Facility: [facility] Address: [address] [place] [address] Performed By: #### 2 777-1, 02312-2, ####[facility] LABORATORYCLIA [id number] [place] [address] [place] Urea nitrogen [Mass/Vol] 8 mg/dL Normal 7-21 [facility] Comment on above: Order Comment: Speci men Type: BLOOD SPECIMENOrdering Facility: [facility] Address: [address] [place] [address] Performed By: #### 2 777-1, 93521-7, ####[facility] LABORATORYCLIA [id number] [address] [address] [facility] CASE MANAGEMon 07-20-2023 CASE MANAGEM Normal [facility] CBC W Auto Differential pane l (Bld)on 07-20-2023 Basophils (Bld) [#/Vol] 10*3/uL Normal <0.11 [facility] Comment on above: Order Comment: Speci men Type: BLOOD SPECIMENOrdering Facility: [facility] Address: [address] [place] [address] Performed By: #### 5 7021-8 ####[facility] LABORATORYCLIA [id number] [address] [address] [place] Basophils/100 WBC (Bld) 0.4 % Normal [facility] Comment on above: Order Comment: Speci men Type: BLOOD SPECIMENOrdering Facility: [facility] Address: [address] [place] [address] Performed By: #### 5 7021-8 ####[facility] LABORATORYCLIA [id number] [address] [address] [place] Differential cell count method Nom (Bld) Auto Normal [facility] Comment on above: Order Comment: Speci men Type: BLOOD SPECIMENOrdering Facility: [facility] Address: [address] [place] [address] Performed By: #### 5 7021-8 ####[facility] LABORATORYCLIA [id number] [place] [address] [place] Eosinophils (Bld) [#/Vol] 0.19 10*3/uL Normal <0.46 [facility] Comment on above: Order Comment: Speci men Type: BLOOD SPECIMENOrdering Facility: [facility] Address: [address] [place] [address] Performed By: #### 5 7021-8 ####[facility] LABORATORYCLIA [id number] [place] [address] [place] Eosinophils/100 WBC (Bld) 3.8 % Normal [facility] Comment on above: Order Comment: Speci men Type: BLOOD SPECIMENOrdering Facility: [facility] Address: [address] [place] [address] Performed By: #### 5 7021-8 ####[facility] LABORATORYCLIA [id number] [address] [place] Erythrocyte distribution width (RBC) [Ratio] 12.8 % Normal 11.5-15.0 [facility] Comment on above: Order Comment: Speci men Type: BLOOD SPECIMENOrdering Facility: [facility] Address: [address] [place] [address] Performed By: #### 5 7021-8 ####[facility] LABORATORYCLIA [id number] [place] [address] [place] Hematocrit (Bld) [Volume fraction] 31.6 % Low 36.0-46.0 [facility] Comment on above: Order Comment: Speci men Type: BLOOD SPECIMENOrdering Facility: [facility] Address: [address] [place] [address] Performed By: #### 5 7021-8 ####[facility] LABORATORYCLIA [id number] [place] [address] [place] Hemoglobin (Bld) [Mass/Vol] 10.5 g/dL Low 11.5-15.5 [facility] Comment on above: Order Comment: Speci men Type: BLOOD SPECIMENOrdering Facility: [facility] Address: [address] [place] [address] Performed By: #### 5 7021-8 ####[facility] LABORATORYCLIA [id number] [address] [address] [place] Immature granulocytes (Bld) [#/Vol] 10*3/uL Normal <0.10 [facility] Comment on above: Order Comment: Speci men Type: BLOOD SPECIMENOrdering Facility: [facility] Address: [address] [place] [address] Performed By: #### 5 7021-8 ####[facility] LABORATORYCLIA [id number] [place] [address] [place] Immature granulocytes/100 WBC (Bld) 0.2 % Normal [facility] Comment on above: Order Comment: Speci men Type: BLOOD SPECIMENOrdering Facility: [facility] Address: [address] [place] [address] Performed By: #### 5 7021-8 ####[facility] LABORATORYCLIA [id number] [place] [address] [place] Lymphocytes (Bld) [#/Vol] 0.99 10*3/uL Low 1.00-4.00 [facility] Comment on above: Order Comment: Speci men Type: BLOOD SPECIMENOrdering Facility: [facility] Address: [address] [place] [address] Performed By: #### 5 7021-8 ####[facility] LABORATORYCLIA [id number] [address] [address] [place] Lymphocytes/100 WBC (Bld) 19.8 % Normal [facility] Comment on above: Order Comment: Speci men Type: BLOOD SPECIMENOrdering Facility: [facility] Address: [address] [place] [address] Performed By: #### 5 7021-8 ####[facility] LABORATORYCLIA [id number] [place] [address] [place] MCH (RBC) [Entitic mass] 30.2 pg Normal 26.0-34.0 [facility] Comment on above: Order Comment: Speci men Type: BLOOD SPECIMENOrdering Facility: [facility] Address: [address] [place] [address] Performed By: #### 5 7021-8 ####[facility] LABORATORYCLIA [id number] [place] [address] [place] MCHC (RBC) [Mass/Vol] 33.2 g/dL Normal 30.5-36.0 [facility] Comment on above: Order Comment: Speci men Type: BLOOD SPECIMENOrdering Facility: [facility] Address: [address] [place] [address] Performed By: #### 5 7021-8 ####[facility] LABORATORYCLIA [id number] [place] [address] [place] MCV (RBC) [Entitic vol] 90.8 fL Normal 80.0-100.0 [facility] Comment on above: Order Comment: Speci men Type: BLOOD SPECIMENOrdering Facility: [facility] Address: [address] [place] [address] Performed By: #### 5 7021-8 ####[facility] LABORATORYCLIA [id number] [place] [address] [place] Monocytes (Bld) [#/Vol] 0.32 10*3/uL Normal <0.87 [facility] Comment on above: Order Comment: Speci men Type: BLOOD SPECIMENOrdering Facility: [facility] Address: [address] [place] [address] Performed By: #### 5 7021-8 ####[facility] LABORATORYCLIA [id number] [address] [place] Monocytes/100 WBC (Bld) 6.4 % Normal [facility] Comment on above: Order Comment: Speci men Type: BLOOD SPECIMENOrdering Facility: [facility] Address: [address] [place] [address] Performed By: #### 5 7021-8 ####[facility] LABORATORYCLIA [id number] [place] [address] [place] Neutrophils (Bld) [#/Vol] 3.47 10*3/uL Normal 1.45-7.50 [facility] Comment on above: Order Comment: Speci men Type: BLOOD SPECIMENOrdering Facility: [facility] Address: [address] [place] [address] Performed By: #### 5 7021-8 ####[facility] LABORATORYCLIA [id number] [place] [address] [place] Neutrophils/100 WBC (Bld) 69.4 % Normal [facility] Comment on above: Order Comment: Speci men Type: BLOOD SPECIMENOrdering Facility: [facility] Address: [address] [place] [address] Performed By: #### 5 7021-8 ####[facility] LABORATORYCLIA [id number] [place] [address] [place] Nucleated RBC (Bld) [#/Vol] 10*3/uL Normal <0.01 [facility] Comment on above: Order Comment: Speci men Type: BLOOD SPECIMENOrdering Facility: [facility] Address: [address] [place] [address] Performed By: #### 5 7021-8 ####[facility] LABORATORYCLIA [id number] [place] [address] [place] Nucleated RBC/100 WBC (Bld) [Ratio] 0.0 /100 WBC Normal [facility] Comment on above: Order Comment: Speci men Type: BLOOD SPECIMENOrdering Facility: [facility] Address: [address] [place] [address] Performed By: #### 5 7021-8 ####[facility] LABORATORYCLIA [id number] [place] [address] [place] Platelet mean volume (Bld) [Entitic vol] 11.1 fL Normal 9.0-12.7 [facility] Comment on above: Order Comment: Speci men Type: BLOOD SPECIMENOrdering Facility: [facility] Address: [address] [place] [address] Performed By: #### 5 7021-8 ####[facility] LABORATORYCLIA [id number] [place] [address] [place] Platelets (Bld) [#/Vol] 225 10*3/uL Normal 150-400 [facility] Comment on above: Order Comment: Speci men Type: BLOOD SPECIMENOrdering Facility: [facility] Address: [address] [place] [address] Performed By: #### 5 7021-8 ####[facility] LABORATORYCLIA [id number] [place] [address] [place] RBC (Bld) [#/Vol] 3.48 10*6/uL Low 3.90-5.20 [facility] Comment on above: Order Comment: Speci men Type: BLOOD SPECIMENOrdering Facility: [facility] Address: [address] [place] [address] Performed By: #### 5 7021-8 ####[facility] LABORATORYCLIA [id number] [place] [address] [place] WBC (Bld) [#/Vol] 5.00 10*3/uL Normal 3.70-11.00 [facility] Comment on above: Order Comment: Speci men Type: BLOOD SPECIMENOrdering Facility: [facility] Address: [address] [place] [address] Performed By: #### 5 7021-8 ####[facility] LABORATORYCLIA [id number] [place] [address] [place] CNDSon 07-20-2023 CNDS Normal [facility] Magnesium SerPl-ncon 07-19 Magnesium [Mass/Vol] 2.1 mg/dL Normal 1.7-2.3 [facility] Comment on above: Order Comment: Speci men Type: BLOOD SPECIMENOrdering Facility: [facility] Address: [address] [place] [address] Performed By: #### 2 777-1, 25866-1, 02908-9 ####[facility] LABORATORYCLIA [id number] [place] [address] [place] NURSING PROGon 07-20-2023 NURSING PROG Normal [facility] Phosphate SerPl-mCncon 07-19 Phosphate [Mass/Vol] 4.2 mg/dL Normal 2.7-4.8 [facility] Comment on above: Order Comment: Speci men Type: BLOOD SPECIMENOrdering Facility: [facility] Address: [facility] [place] [address] Performed By: #### 2 777-1, 84128-4, ####[facility] LABORATORYCLIA [id number] [place] [address] [place] Basic metabolic 2000 panelon 07-19-2023 Anion gap [Moles/Vol] 9 mmol/L Normal 9-18 [facility] Comment on above: Order Comment: Speci men Type: BLOOD SPECIMENOrdering Facility: [facility] Address: [address] [place] [address] Performed By: #### 2 777-1, , ####[facility] LABORATORYCLIA [id number] [place] [address] [place] Calcium [Mass/Vol] 8.7 mg/dL Normal 8.5-10.2 [facility] Comment on above: Order Comment: Speci men Type: BLOOD SPECIMENOrdering Facility: [facility] Address: [address] [place] [address] Performed By: #### 2 777-1, , ####[facility] LABORATORYCLIA [id number] [place] [address] [place] Chloride [Moles/Vol] 107 mmol/L High 97-105 [facility] Comment on above: Order Comment: Speci men Type: BLOOD SPECIMENOrdering Facility: [facility] Address: [address] [place] [address] Performed By: #### 2 777-1, 84646-7, ####[facility] LABORATORYCLIA [id number] [place] [address] [place] CO2 [Moles/Vol] 23 mmol/L Normal 22-30 [facility] Comment on above: Order Comment: Speci men Type: BLOOD SPECIMENOrdering Facility: [facility] Address: [address] [place] [address] Performed By: #### 2 777-1, 01864-6, ####[facility] LABORATORYCLIA [id number] [place] [address] [place] [facility] Creatinine [Mass/Vol] 0.75 mg/dL Normal 0.58-0.96 [facility] Comment on above: Order Comment: Specmichael marrero Type: BLOOD SPECIMENOrdering Facility: [facility] Address: [address] [place] [address] Performed By: #### 2 777-1, 89634-2, ####[facility] LABORATORYCLIA [id number] [place] [address] [facility] Creatinine and Glomerular filtration rate.predicted panel (S/P/Bld) 107 mL/min/1.73m??? Normal >=60 [facility] Comment on above: Order Comment: Geraldo marrero Type: BLOOD SPECIMENOrdering Facility: [facility] Address: [address] [place] [address] Result Comment: Jessica mated Glomerular Filtration Rate [...] actual GFR. Performed By: #### 2 777-1, 56642-6, ####[facility] LABORATORYCLIA [id number] [place] [address] [place] Glucose [Mass/Vol] 81 mg/dL Normal 74-99 [facility] Comment on above: Order Comment: Speci men Type: BLOOD SPECIMENOrdering Facility: [facility] Address: [address] [place] [address] Result Comment: The [place] [employer] (ADA) provides guidance for cutoff [...] Standards of Medical Care in Diabetes 2016, [place] [employer]. Diabetes Care. 2016.39(Suppl 1). Performed By: #### 2 777-1, 34511-4, ####[facility] LABORATORYCLIA [id number] [place] [address] [place] Potassium [Moles/Vol] 3.9 mmol/L Normal 3.7-5.1 [facility] Comment on above: Order Comment: Geraldo marrero Type: BLOOD SPECIMENOrdering Facility: [facility] Address: [address] [place] [address] Performed By: #### 2 777-1, , ####[facility] HOSPITALCLIA [id number] [place] [address] [place] Sodium [Moles/Vol] 139 mmol/L Normal 136-144 [facility] Comment on above: Order Comment: Geraldo marrero Type: BLOOD SPECIMENOrdering Facility: [facility] Address: [address] [place] [address] Performed By: #### 2 777-1, , ####[facility] LABORATORYCLIA [id number] [place] [address] [place] Urea nitrogen [Mass/Vol] 6 mg/dL Low 7-21 [facility] Comment on above: Order Comment: Geraldo marrero Type: BLOOD SPECIMENOrdering Facility: [facility] Address: [address] [place] [address] Performed By: #### 2 777-1, , ####[facility] LABORATORYCLIA [id number] [place] [address] [place] CASE MGT INIT ASSESon 2023 CASE MGT INIT ASSES Normal [facility] CBC W Auto Differential pane l (Bld)on 07-19-2023 Basophils (Bld) [#/Vol] 0.04 10*3/uL Normal <0.11 [facility] Comment on above: Order Comment: Speci men Type: BLOOD SPECIMENOrdering Facility: [facility] Address: [address] [place] [address] Performed By: #### 5 7021-8 ####[facility] LABORATORYCLIA [id number] [place] [address] [place] Basophils/100 WBC (Bld) 1.3 % Normal [facility] Comment on above: Order Comment: Speci men Type: BLOOD SPECIMENOrdering Facility: [facility] Address: [address] [place] [address] Performed By: #### 5 7021-8 ####OS[facility] LABORATORYCLIA [id number] [place] [address] [place] Differential cell count method Nom (Bld) Auto Normal [facility] Comment on above: Order Comment: Speci men Type: BLOOD SPECIMENOrdering Facility: [facility] Address: [address] [place] [address] Performed By: #### 5 7021-8 ####[facility] LABORATORYCLIA [id number] [place] [address] [place] Eosinophils (Bld) [#/Vol] 0.28 10*3/uL Normal <0.46 [facility] Comment on above: Order Comment: Speci men Type: BLOOD SPECIMENOrdering Facility: [facility] Address: [address] [place] [address] Performed By: #### 5 7021-8 ####[facility] LABORATORYCLIA [id number] [place] [address] [place] Eosinophils/100 WBC (Bld) 9.1 % Normal [facility] Comment on above: Order Comment: Speci men Type: BLOOD SPECIMENOrdering Facility: [facility] Address: [address] [place] [address] Performed By: #### 5 7021-8 ####OS[facility] LABORATORYCLIA [id number] [place] [address] [place] Erythrocyte distribution width (RBC) [Ratio] 12.6 % Normal 11.5-15.0 [facility] Comment on above: Order Comment: Speci men Type: BLOOD SPECIMENOrdering Facility: [facility] Address: [address] [place] [address] Performed By: #### 5 7021-8 ####OS[facility] LABORATORYCLIA [id number] [place] [address] [place] Hematocrit (Bld) [Volume fraction] 29.7 % Low 36.0-46.0 [facility] Comment on above: Order Comment: Speci men Type: BLOOD SPECIMENOrdering Facility: [facility] Address: [address] [place] [address] Performed By: #### 5 7021-8 ####[facility] LABORATORYCLIA [id number] [place] [address] [place] Hemoglobin (Bld) [Mass/Vol] 10.0 g/dL Low 11.5-15.5 [facility] Comment on above: Order Comment: Speci men Type: BLOOD SPECIMENOrdering Facility: [facility] Address: [address] [place] [address] Performed By: #### 5 7021-8 ####[facility] LABORATORYCLIA [id number] [place] [address] [place] Immature granulocytes (Bld) [#/Vol] 10*3/uL Normal <0.10 [facility] Comment on above: Order Comment: Speci men Type: BLOOD SPECIMENOrdering Facility: [facility] Address: [address] [place] [address] Performed By: #### 5 7021-8 ####[facility] LABORATORYCLIA [id number] [address] [place] Immature granulocytes/100 WBC (Bld) 0.3 % Normal [facility] Comment on above: Order Comment: Speci men Type: BLOOD SPECIMENOrdering Facility: [facility] Address: [address] [place] [address] Performed By: #### 5 7021-8 ####[facility] LABORATORYCLIA [id number] [place] [address] [place] Lymphocytes (Bld) [#/Vol] 1.18 10*3/uL Normal 1.00-4.00 [facility] Comment on above: Order Comment: Speci men Type: BLOOD SPECIMENOrdering Facility: [facility] Address: [address] [place] [address] Performed By: #### 5 7021-8 ####[facility] LABORATORYCLIA [id number] [place] [address] [place] Lymphocytes/100 WBC (Bld) 38.2 % Normal [facility] Comment on above: Order Comment: Speci men Type: BLOOD SPECIMENOrdering Facility: [facility] Address: [address] [place] [address] Performed By: #### 5 7021-8 ####[facility] LABORATORYCLIA [id number] [place] [address] [place] MCH (RBC) [Entitic mass] 29.9 pg Normal 26.0-34.0 [facility] Comment on above: Order Comment: Speci men Type: BLOOD SPECIMENOrdering Facility: [facility] Address: [address] [place] [address] Performed By: #### 5 7021-8 ####[facility] LABORATORYCLIA [id number] [address] [place] MCHC (RBC) [Mass/Vol] 33.7 g/dL Normal 30.5-36.0 [facility] Comment on above: Order Comment: Speci men Type: BLOOD SPECIMENOrdering Facility: [facility] Address: [address] [place] [address] Performed By: #### 5 7021-8 ####[facility] LABORATORYCLIA [id number] [address] [place] MCV (RBC) [Entitic vol] 88.9 fL Normal 80.0-100.0 [facility] Comment on above: Order Comment: Speci men Type: BLOOD SPECIMENOrdering Facility: [facility] Address: [address] [place], [place] [id number] Performed By: #### 5 7021-8 ####[facility] LABORATORYCLIA [id number] [place] [address] [place] Monocytes (Bld) [#/Vol] 0.26 10*3/uL Normal <0.87 [facility] Comment on above: Order Comment: Speci men Type: BLOOD SPECIMENOrdering Facility: [facility] Address: [address] [place] [address] Performed By: #### 5 7021-8 ####[facility] LABORATORYCLIA [id number] [place] [address] [place] Monocytes/100 WBC (Bld) 8.4 % Normal [facility] Comment on above: Order Comment: Speci men Type: BLOOD SPECIMENOrdering Facility: [facility] Address: [address] [place] [address] Performed By: #### 5 7021-8 ####[facility] LABORATORYCLIA [id number] [place] [address] [place] Neutrophils (Bld) [#/Vol] 1.32 10*3/uL Low 1.45-7.50 [facility] Comment on above: Order Comment: Speci men Type: BLOOD SPECIMENOrdering Facility: [facility] Address: [address] [place] [address] Performed By: #### 5 7021-8 ####[facility] LABORATORYCLIA [id number] [place] [address] [place] Neutrophils/100 WBC (Bld) 42.7 % Normal [facility] Comment on above: Order Comment: Speci men Type: BLOOD SPECIMENOrdering Facility: [facility] Address: [address] [place] [address] Performed By: #### 5 7021-8 ####[facility] LABORATORYCLIA [id number] [place] [address] [place] Nucleated RBC (Bld) [#/Vol] 10*3/uL Normal <0.01 [facility] Comment on above: Order Comment: Speci men Type: BLOOD SPECIMENOrdering Facility: [facility] Address: [address] [place] [address] Performed By: #### 5 7021-8 ####[facility] LABORATORYCLIA [id number] [place] [address] [place] Nucleated RBC/100 WBC (Bld) [Ratio] 0.0 /100 WBC Normal [facility] Comment on above: Order Comment: Speci men Type: BLOOD SPECIMENOrdering Facility: [facility] Address: [address] [place] [address] Performed By: #### 5 7021-8 ####[facility] LABORATORYCLIA [id number] [place] [address] [place] Platelet mean volume (Bld) [Entitic vol] 10.6 fL Normal 9.0-12.7 [facility] Comment on above: Order Comment: Speci men Type: BLOOD SPECIMENOrdering Facility: [facility] Address: [address] [place] [address] Performed By: #### 5 7021-8 ####[facility] LABORATORYCLIA [id number] [place] [address] [place] Platelets (Bld) [#/Vol] 210 10*3/uL Normal 150-400 [facility] Comment on above: Order Comment: Speci men Type: BLOOD SPECIMENOrdering Facility: [facility] Address: [address] [place] [address] Performed By: #### 5 7021-8 ####[facility] LABORATORYCLIA [id number] [place] [address] [place] RBC (Bld) [#/Vol] 3.34 10*6/uL Low 3.90-5.20 [facility] Comment on above: Order Comment: Speci men Type: BLOOD SPECIMENOrdering Facility: [facility] Address: [address] [place] [address] Performed By: #### 5 7021-8 ####[facility] LABORATORYCLIA [id number] [place] [address] [place] WBC (Bld) [#/Vol] 3.09 10*3/uL Low 3.70-11.00 [facility] Comment on above: Order Comment: Speci men Type: BLOOD SPECIMENOrdering Facility: [facility] Address: [address] [place] [address] [place] [address] Performed By: #### 5 7021-8 ####[facility] LABORATORYCLIA [id number] [place] [address] [place] [facility]esium [facility] Magnesium [Mass/Vol] 2.0 mg/dL Normal 1.7-2.3 [facility] Comment on above: Order Comment: Speci men Type: BLOOD SPECIMENOrdering Facility: [facility] Address: [address] [place] [address] Performed By: #### 2 777-1, 91730-0, ####[facility] LABORATORYCLIA [id number] [place] [address] [place] NUTRITIONon 07-19-2023 NUTRITION Normal [facility] Phosphate [facility] Phosphate [Mass/Vol] 4.3 mg/dL Normal 2.7-4.8 [facility] Comment on above: Order Comment: Speci men Type: BLOOD SPECIMENOrdering Facility: [facility] Address: [address] [place] [address] Performed By: #### 2 777-1, 81658-0, ####[facility] LABORATORYCLIA [id number] [place] [address] [place] ALLIED HEALTHon 07-18-2023 ALLIED HEALTH Normal [facility] ALLIED HEALTH Normal [facility] Basic metabolic 2000 panelon 07-18-2023 Anion gap [Moles/Vol] 9 mmol/L Normal 9-18 [facility] Comment on above: Order Comment: Speci men Type: BLOOD SPECIMENOrdering Facility: [facility] Address: [address] [place] [address] Performed By: #### 2 777-1, 86235-4, ####[facility] LABORATORYCLIA [id number] [place] [address] [place] Calcium [Mass/Vol] 8.5 mg/dL Normal 8.5-10.2 [facility] Comment on above: Order Comment: Speci men Type: BLOOD SPECIMENOrdering Facility: [facility] Address: [address] [place] [address] Performed By: #### 2 777-1, , ####[facility] LABORATORYCLIA [id number] [place] [address] [place] Chloride [Moles/Vol] 108 mmol/L High 97-105 [facility] Comment on above: Order Comment: Speci men Type: BLOOD SPECIMENOrdering Facility: [facility] Address: [address] [place] [address] Performed By: #### 2 777-1, , ####[facility] LABORATORYCLIA [id number] [place] [address] [place] CO2 [Moles/Vol] 22 mmol/L Normal 22-30 [facility] Comment on above: Order Comment: Speci men Type: BLOOD SPECIMENOrdering Facility: [facility] Address: [address] [place] [address] Performed By: #### 2 777-1, , ####[facility] LABORATORYCLIA [id number] [place] [address] [place] Creatinine [Mass/Vol] 0.76 mg/dL Normal 0.58-0.96 [facility] Comment on above: Order Comment: Speci men Type: BLOOD SPECIMENOrdering Facility: [facility] Address: [address] [place] [address] Performed By: #### 2 777-1, , ####[facility] LABORATORYCLIA [id number] [place] [address] [place] Creatinine and Glomerular filtration rate.predicted panel (S/P/Bld) 106 mL/min/1.73m??? Normal >=60 [facility] Comment on above: Order Comment: Speci men Type: BLOOD SPECIMENOrdering Facility: [facility] Address: [address] [place] [address] Result Comment: Jessica mated Glomerular Filtration Rate [...] actual GFR. Performed By: #### 2 777-1, 84684-9, ####[facility] LABORATORYCLIA [id number] [place] [address] [place] Glucose [Mass/Vol] 80 mg/dL Normal 74-99 [facility] Comment on above: Order Comment: Geraldo marrero Type: BLOOD SPECIMENOrdering Facility: [facility] Address: [address] [place] [address] Result Comment: The [place] [employer] (ADA) provides guidance for cutoff [...] Standards of Medical Care in Diabetes 2016, [place] [employer]. Diabetes Care. 2016.39(Suppl 1). Performed By: #### 2 777-1, 66735-5, ####[facility] LABORATORYCLIA [id number] [place] [address] [place] Potassium [Moles/Vol] 4.1 mmol/L Normal 3.7-5.1 [facility] Comment on above: Order Comment: Geraldo marrero Type: BLOOD SPECIMENOrdering Facility: [facility] Address: [address] [place] [address] Performed By: #### 2 777-1, 04904-9, ####[facility] LABORATORYCLIA [id number] [place] [address] [place] Sodium [Moles/Vol] 139 mmol/L Normal 136-144 [facility] Comment on above: Order Comment: Speci men Type: BLOOD SPECIMENOrdering Facility: [facility] Address: [address] [place] [address] Performed By: #### 2 777-1, 71793-6, 83050-0 ####[facility] LABORATORYCLIA [id number] [place] [address] [place] Urea nitrogen [Mass/Vol] 7 mg/dL Normal 7-21 [facility] Comment on above: Order Comment: Speci men Type: BLOOD SPECIMENOrdering Facility: [facility] Address: [address] [place] [address] Performed By: #### 2 777-1, 84387-4, 37598-5 ####[facility] LABORATORYCLIA [id number] [place] [address] [place] CBC W Auto Differential pane l (Bld)on 07-18-2023 Basophils (Bld) [#/Vol] 0.06 10*3/uL Normal <0.11 [facility] Comment on above: Order Comment: Speci men Type: BLOOD SPECIMENOrdering Facility: [facility] Address: [address] [place] [address] Performed By: #### 5 7021-8 ####[facility] LABORATORYCLIA [id number] [place] [address] [place] Basophils/100 WBC (Bld) 1.6 % Normal [facility] Comment on above: Order Comment: Speci men Type: BLOOD SPECIMENOrdering Facility: [facility] Address: [address] [place] [address] Performed By: #### 5 7021-8 ####OS[facility] LABORATORYCLIA [id number] [place] [address] [place] Differential cell count method Nom (Bld) Auto Normal [facility] Comment on above: Order Comment: Speci men Type: BLOOD SPECIMENOrdering Facility: [facility] Address: [address] [place] [address] Performed By: #### 5 7021-8 ####[facility] LABORATORYCLIA [id number] [place] [address] [place] Eosinophils (Bld) [#/Vol] 0.33 10*3/uL Normal <0.46 [facility] Comment on above: Order Comment: Speci men Type: BLOOD SPECIMENOrdering Facility: [facility] Address: [address] [place] [address] Performed By: #### 5 7021-8 ####[facility] LABORATORYCLIA [id number] [place] [address] [place] Eosinophils/100 WBC (Bld) 8.8 % Normal [facility] Comment on above: Order Comment: Speci men Type: BLOOD SPECIMENOrdering Facility: [facility] Address: [address] [place] [address] Performed By: #### 5 7021-8 ####[facility] LABORATORYCLIA [id number] [place] [address] [place] Erythrocyte distribution width (RBC) [Ratio] 12.9 % Normal 11.5-15.0 [facility] Comment on above: Order Comment: Speci men Type: BLOOD SPECIMENOrdering Facility: [facility] Address: [address] [place] [address] Performed By: #### 5 7021-8 ####OS[facility] LABORATORYCLIA [id number] [place] [address] [place] Hematocrit (Bld) [Volume fraction] 31.1 % Low 36.0-46.0 [facility] Comment on above: Order Comment: Speci men Type: BLOOD SPECIMENOrdering Facility: [facility] Address: [address] [place] [address] Performed By: #### 5 7021-8 ####[facility] LABORATORYCLIA [id number] [place] [address] [place] Hemoglobin (Bld) [Mass/Vol] 10.2 g/dL Low 11.5-15.5 [facility] Comment on above: Order Comment: Speci men Type: BLOOD SPECIMENOrdering Facility: [facility] Address: [address] [place] [address] Performed By: #### 5 7021-8 ####[facility] LABORATORYCLIA [id number] [place] [address] [place] Immature granulocytes (Bld) [#/Vol] 10*3/uL Normal <0.10 [facility] Comment on above: Order Comment: Speci men Type: BLOOD SPECIMENOrdering Facility: [facility] Address: [address] [place] [address] Performed By: #### 5 7021-8 ####[facility] LABORATORYCLIA [id number] [address] [place] Immature granulocytes/100 WBC (Bld) 0.0 % Normal [facility] Comment on above: Order Comment: Speci men Type: BLOOD SPECIMENOrdering Facility: [facility] Address: [address] [place] [address] Performed By: #### 5 7021-8 ####[facility] LABORATORYCLIA [id number] [place] [address] [place] Lymphocytes (Bld) [#/Vol] 1.40 10*3/uL Normal 1.00-4.00 [facility] Comment on above: Order Comment: Speci men Type: BLOOD SPECIMENOrdering Facility: [facility] Address: [address] [place] [address] Performed By: #### 5 7021-8 ####[facility] LABORATORYCLIA [id number] [place] [address] [place] Lymphocytes/100 WBC (Bld) 37.2 % Normal [facility] Comment on above: Order Comment: Speci men Type: BLOOD SPECIMENOrdering Facility: [facility] Address: [address] [place] [address] Performed By: #### 5 7021-8 ####[facility] LABORATORYCLIA [id number] [place] [address] [place] MCH (RBC) [Entitic mass] 30.4 pg Normal 26.0-34.0 [facility] Comment on above: Order Comment: Speci men Type: BLOOD SPECIMENOrdering Facility: [facility] Address: [address] [place] [address] Performed By: #### 5 7021-8 ####[facility] LABORATORYCLIA [id number] [address] [place] MCHC (RBC) [Mass/Vol] 32.8 g/dL Normal 30.5-36.0 [facility] Comment on above: Order Comment: Speci men Type: BLOOD SPECIMENOrdering Facility: [facility] Address: [address] [place] [address] Performed By: #### 5 7021-8 ####[facility] LABORATORYCLIA [id number] [address] [place] MCV (RBC) [Entitic vol] 92.6 fL Normal 80.0-100.0 [facility] Comment on above: Order Comment: Speci men Type: BLOOD SPECIMENOrdering Facility: [facility] Address: [address] [place] [address] Performed By: #### 5 7021-8 ####[facility] LABORATORYCLIA [id number] [address] [place] Monocytes (Bld) [#/Vol] 0.42 10*3/uL Normal <0.87 [facility] Comment on above: Order Comment: Speci men Type: BLOOD SPECIMENOrdering Facility: [facility] Address: [address] [place] [address] Performed By: #### 5 7021-8 ####[facility] LABORATORYCLIA [id number] [address] [place] Monocytes/100 WBC (Bld) 11.2 % Normal [facility] Comment on above: Order Comment: Speci men Type: BLOOD SPECIMENOrdering Facility: [facility] Address: [address] [place] [address] Performed By: #### 5 7021-8 ####[facility] LABORATORYCLIA [id number] [place] [address] [place] Neutrophils (Bld) [#/Vol] 1.55 10*3/uL Normal 1.45-7.50 [facility] Comment on above: Order Comment: Speci men Type: BLOOD SPECIMENOrdering Facility: [facility] Address: [address] [place] [address] Performed By: #### 5 7021-8 ####[facility] LABORATORYCLIA [id number] [place] [address] [place] Neutrophils/100 WBC (Bld) 41.2 % Normal [facility] Comment on above: Order Comment: Speci men Type: BLOOD SPECIMENOrdering Facility: [facility] Address: [address] [place] [address] Performed By: #### 5 7021-8 ####[facility] LABORATORYCLIA [id number] [place] [address] [place] Nucleated RBC (Bld) [#/Vol] 10*3/uL Normal <0.01 [facility] Comment on above: Order Comment: Speci men Type: BLOOD SPECIMENOrdering Facility: [facility] Address: [address] [place] [address] Performed By: #### 5 7021-8 ####[facility] LABORATORYCLIA [id number] [place] [address] [place] Nucleated RBC/100 WBC (Bld) [Ratio] 0.0 /100 WBC Normal [facility] Comment on above: Order Comment: Speci men Type: BLOOD SPECIMENOrdering Facility: [facility] [facility] Address: [address] [place] [address] Performed By: #### 5 7021-8 ####[facility] LABORATORYCLIA [id number] [place] [id number] [place] Platelet mean volume (Bld) [Entitic vol] 11.0 fL Normal 9.0-12.7 [facility] Comment on above: Order Comment: Speci men Type: BLOOD SPECIMENOrdering Facility: [facility] Address: [address] [place] [address] Performed By: #### 5 7021-8 ####[facility] LABORATORYCLIA [id number] [place] [id number] [place] Platelets (Bld) [#/Vol] 212 10*3/uL Normal 150-400 [facility] Comment on above: Order Comment: Speci men Type: BLOOD SPECIMENOrdering Facility: [facility] Address: [address] [place] [address] Performed By: #### 5 7021-8 ####[facility] LABORATORYCLIA [id number] [place] [id number] [place] RBC (Bld) [#/Vol] 3.36 10*6/uL Low 3.90-5.20 [facility] Comment on above: Order Comment: Speci men Type: BLOOD SPECIMENOrdering Facility: [facility] Address: [address] [place] [address] Performed By: #### 5 7021-8 ####[facility] LABORATORYCLIA [id number] [place] [address] [place] WBC (Bld) [#/Vol] 3.76 10*3/uL Normal 3.70-11.00 [facility] Comment on above: Order Comment: Speci men Type: BLOOD SPECIMENOrdering Facility: [facility] Address: [address] [place] [address] Performed By: #### 5 7021-8 ####[facility] LABORATORYCLIA [id number] [place] [address] [place] Magnesium SerPl-mCncon 07-17 Magnesium [Mass/Vol] 1.9 mg/dL Normal 1.7-2.3 [facility] Comment on above: Order Comment: Speci men Type: BLOOD SPECIMENOrdering Facility: [facility] Address: [address] [place] [address] Performed By: #### 2 777-1, 49922-4, 34679-9 ####[facility] LABORATORYCLIA [id number] [place] [address] [place] Phosphate SerPl-mCncon 07-17 Phosphate [Mass/Vol] 4.7 mg/dL Normal 2.7-4.8 [facility] Comment on above: Order Comment: Speci men Type: BLOOD SPECIMENOrdering Facility: [facility] Address: [address] [place] [address] Performed By: #### 2 777-1, 92037-2, 30416-4 ####[facility] LABORATORYCLIA [id number] [place] [address] [place] XR CHEST 1V FRONTAL PORTon 0 07-18-2023 XR CHEST 1V FRONTAL PORT Normal [facility] XR SMALL BOWEL SERIESon XR SMALL BOWEL SERIES Normal [facility] Capillary blood glucose brie urement by glucometer (mass/volume)Ordered By: Camden Rodriguez on 07-17-2023 Glucose [Mass/Vol] 86 mg/dL Normal [facility] Comment on above: Random Glucose Refer ence Range is dependent on time and content of last meal. Glucose of more than 200 mg/dL in a nonstressed, ambulatory subject supports the diagnosis of Diabetes Mellitus. Result Comment: [facility] Glucose Reference Range is dependent on time and content of last meal. Glucose of more than 200 mg/dL in a nonstressed, ambulatory subject supports the diagnosis of Diabetes Mellitus. PERFORMED BY: [facility] [address] [place] [address] PATHOLOGIST FINISHING FRAME RUNNER BAUTISTA BAKER M.D. Performed By: #### G LULS #### Point of Care testing , Glucose Poct Glucometerson 0 07-17-2023 Commemt1 Glu2: Cleaned Meter Normal [facility] Comment on above: Result Comment: PERF ORMED BY: [facility] [address] [place] [address] PATHOLOGIST FINISHING FRAME RUNNER BAUTISTA BAKER M.D. Performed By: #### H EPATIC, MG, LIPASE, CMP, CBC #### [address] Glucose [Mass/Vol] 90 mg/dL Normal [facility] Comment on above: Result Comment: [place] Glucose Reference Range is dependent on time and content of last meal. Glucose of more than 200 mg/dL in a nonstressed, ambulatory subject supports the diagnosis of Diabetes Mellitus. Performed By: #### H EPATIC, MG, LIPASE, CMP, CBC #### [facility] [address] HISTORY PHYSICALon HISTORY PHYSICAL Normal [facility] NURSING PROGon 07-17-2023 NURSING PROG Normal [facility] No Panel InformationOrdered By: Camden Rodriguez on 07-17-2023 Bedside Glucose Comment Glu2: cleaned meter [facility] Alanine aminotransferase [En zymatic activity/volume] in Serum or PlasmaOrdered By: Shaan Sabillon on 07-16-2023 ALT [Catalytic activity/Vol] 39 U/L Normal 7-52 [facility] Comment on above: Performed By: #### A JOSESITO RAY, CUU #### [address] Albumin [Mass/volume] in Ser um or Plasma by Bromocresol green (BCG) dye binding methoOrdered By: Shaan Sabillon on 07-16-2023 Albumin BCG dye [Mass/Vol] 4.3 g/dL 3.5-5.7 [facility] Alkaline phosphatase [Enzyma tic activity/volume] in Serum or PlasmaOrdered By: Shaan Sabillon on 07-16-2023 ALP [Catalytic activity/Vol] 57 U/L Normal 34-104 [facility] Comment on above: Performed By: #### A JOSESITO RAY, CUU #### [facility] [address] [place] [address] Aspartate aminotransferase [ Enzymatic activity/volume] in Serum or PlasmaOrdered By: Shaan Sabillon on 07-16-2023 AST [Catalytic activity/Vol] 43 U/L High 13-39 [facility] Comment on above: Performed By: #### A JOSESITO RAY, CUU #### [address] Automated basophil %Ordered By: Shaan Sabillon on 07-16-2023 Basophils/100 WBC (Bld) 0.7 % Normal . [facility] Comment on above: Performed By: #### A JOSESITO RAY, CUU #### [address] Automated basophil countOrde red By: Shaan Sabillon on 07-16-2023 Basophils (Bld) [#/Vol] 0.0 10*3/uL Normal 0.0-0.2 [facility] Comment on above: Result Comment: PERF ORMED BY: [place] [address] PATHOLOGIST FINISHING FRAME RUNNER BAUTISTA BAKER M.D. Performed By: #### A CORY ElroyG, CUU #### [address] Automated blood monocyte cou ntOrdered By: Shaan Sabillon on 07-16-2023 Monocytes (Bld) [#/Vol] 0.3 10*3/uL Normal 0.0-0.8 [facility] Comment on above: Performed By: #### A CORY ELIS, CUU #### [address] Automated eosinophil %Ordere d By: Shaan Sabillon on 07-16-2023 Eosinophils/100 WBC (Bld) 0.5 % Normal . [facility] Comment on above: Performed By: #### A CORY ElroyG, CUU #### [address] Automated eosinophil countOr dered By: Shaan Sabillon on 07-16-2023 Eosinophils (Bld) [#/Vol] 0.0 10*3/uL Normal 0.0-0.45 [facility] Comment on above: Performed By: #### A CORY ElroyG, CUU #### [address] Automated monocyte %Ordered By: Shaan Sabillon on 07-16-2023 Monocytes/100 WBC (Bld) 4.5 % Normal . [facility] Comment on above: Performed By: #### A DDFLORECITA ElroyG, CUU #### [address] Automated neutrophil %Ordere d By: Shaan Sabillon on 07-16-2023 Neutrophils/100 WBC (Bld) 75.6 % Normal . [facility] Comment on above: Performed By: #### A DDFLORECITA, BRITTANIECG, CUU #### [facility] [address] Basic Metabolic Panelon 06-17 Creatinine Clr Calc Pharmacy 117.42 Normal [facility] Comment on above: Performed By: #### A DDONUAPLUS, UHCG, CUU #### [address] GFR/1.73 sq M.predicted MDRD (S/P/Bld) [Vol rate/Area] mL/min/{1.73_m2} Normal [facility] Comment on above: Performed By: #### A DDFLORECITA ElroyG, CUU #### [address] Bilirubin Test strip Ql (U)O rdered By: Shaan Sabillon on 07-16-2023 Bilirubin Ql (U) Negative Negative [facility] Bilirubin.direct [Mass/volum e] in Serum or PlasmaOrdered By: Shaan Sabillon on 07-16-2023 Bilirubin.direct [Mass/Vol] 0.10 mg/dL 0.03-0.18 [facility] Bilirubin.total [Mass/volume ] in Serum or PlasmaOrdered By: Shaan Sabillon on 07-16-2023 Bilirubin [Mass/Vol] 0.6 mg/dL Normal 0.3-1.0 [facility] Comment on above: Performed By: #### A DDONUAPLUS, CG, CUU #### [address] abdomen pelvis w conon CT abdomen pelvis w con [facility] [place] [address] [place] [address] CT Scan Report Signed Patient: Abbey Garcia MR#: [id number] : 1990 Acct:[id number] Age/Sex: 33 / F ADM Date: 07/16/23 Loc: ER Room: Type: [facility] ER Attending Dr: Copies to: Shaan [...] excluded. Impression dictated by: Cornel Medel Jr., D.O.07/16/2023 4:09 PM Dictation Location: [place] [address] Transcribed By: [facility] 07/16/23 160 Dictated By: Cornel Medel Jr, DO 07/16/23 1606 Signed By: 07/16/23 1609 Normal [facility] Calcium [Mass/volume] in Ser um or PlasmaOrdered By: Shaan Sabillon on 07-16-2023 Calcium [Mass/Vol] 8.9 mg/dL Normal 8.6-10.3 [facility] Comment on above: Performed By: #### A DDONUAPLUS, UHCG, CUU #### [address] Carbon dioxide, total [Moles /volume] in Serum or PlasmaOrdered By: Shaan Sabillon on 07-16-2023 CO2 [Moles/Vol] 24.2 mmol/L Normal 21.0-31.0 [facility] Comment on above: Performed By: #### A DDONUAPLUS, UHCG, CUU #### [address] Chloride [Moles/volume] in S elder or PlasmaOrdered By: Shaan Sabillon on 07-16-2023 Chloride [Moles/Vol] 107 mmol/L Normal 98-107 [facility] Comment on above: Performed By: #### A DDONUAPLUS, UHCG, CUU #### [place] [address] [place] Color of Urine by AutoOrdere d By: Shaan Sabillon on 07-16-2023 Color (U) Yellow Normal Yellow [facility] Comment on above: Order Comment: Name Collection Type:: Clean-Voided Midstream Performed By: #### A DDONDAVON, UHCG, CUU #### [address] Complete Blood Count Auto Di ffon 07-16-2023 Mean Corpuscular HGB Conc 34.2 g/dL Normal 32.0-35.0 [facility] Comment on above: Performed By: #### A DDONUAPLUS, UHCG, CUU #### [place] [address] [place] Monocytes/100 WBC (Bld) 16.79 % Normal 0.00-20.00 [facility] Comment on above: Performed By: #### A DDONUAPLUS, UHCG, CUU #### [place] [address] [place] NRBC% 0.0 /100{WBC} Normal 0-0.5 [facility] Comment on above: Performed By: #### A DDONUAPLUS, UHCG, CUU #### [address] Creatinine [Mass/volume] in Serum or PlasmaOrdered By: Shaan Sabillon on 07-16-2023 Creatinine [Mass/Vol] 0.72 mg/dL Normal 0.60-1.20 [facility] Comment on above: Performed By: #### A DDONUAPLUS, UHCG, CUU #### [address] Erythrocyte distribution wid th [Ratio] by Automated countOrdered By: Shaan Sabillon on 07-16-2023 Erythrocyte distribution width (RBC) [Ratio] 14.4 % Normal 11.9-15.3 [facility] Comment on above: Performed By: #### A DDONUAPLUS, UHCG, CUU #### [address] Erythrocytes [#/volume] in B lood by Automated countOrdered By: Shaan Sabillon on 07-16-2023 RBC (Bld) [#/Vol] 3.67 10*6/uL Normal 3.60-5.00 [facility] Comment on above: Performed By: #### A DDONUAPLUS, UHCG, CUU #### [address] Glucose [Mass/volume] in Ser um or PlasmaOrdered By: Shaan Sabillon on 07-16-2023 Glucose [Mass/Vol] 82 mg/dL Normal 70-100 [facility] Comment on above: ADA recommended refe rence rangeRandom Glucose Reference Range is dependent on time and content of last meal. Glucose of more than 200 mg/dL in a nonstressed, ambulatory subject supports the diagnosis of Diabetes Mellitus. Result Comment: [place] om Glucose Reference Range is dependent on time and content of last meal. Glucose of more than 200 mg/dL in a nonstressed, ambulatory subject supports the diagnosis of Diabetes Mellitus. ADA recommended reference range Performed By: #### A DDONUAPLUS, UHCG, CUU #### [address] HCG ( test) [place].rapi d Ql (U)Ordered By: Shaan Sabillon on 07-16-2023 HCG ( test) Ql (U) Negative [facility] HCG,Urineon 07-16-2023 Beta HCG ( test) Ql (U) Negative Normal [facility] Comment on above: Order Comment: Name Collection Type:: Clean-Voided Midstream Result Comment: PERF ORMED BY: [place] [address] PATHOLOGIST FINISHING FRAME RUNNER BAUTISTA BAKER M.D. Performed By: #### A DDONUAPLUS, BRITTANIECG, CUU #### [address] Hematocrit [Volume Fraction] of Blood by Automated countOrdered By: Shaan Sabillon on 07-16-2023 Hematocrit (Bld) [Volume fraction] 32.8 % Low 34.0-46.4 [facility] Comment on above: Performed By: #### A DDONUAPLUS, UHCG, CUU #### [address] Hemoglobin [Mass/volume] in BloodOrdered By: Shaan Sabillon on 07-16-2023 Hemoglobin (Bld) [Mass/Vol] 11.2 g/dL Low 11.8-15.4 [facility] Comment on above: Performed By: #### A DDONUAPLUS, UHCG, CUU #### [address] Hepatic Panelon 07-16-2023 Albumin [Mass/Vol] 4.3 g/dL Normal 3.5-5.7 [facility] Comment on above: Performed By: #### A DDONUAPLUS, UHCG, CUU #### [address] Bilirubin,Indirect 0.5 mg/dL Normal [facility] Comment on above: Performed By: #### A DDONUAPLUS, UHCG, CUU #### [facility] [address] [place] [address] Bilirubin.indirect [Mass/Vol] 0.10 mg/dL Normal 0.03-0.18 [facility] Comment on above: Performed By: #### A JOSESITO RAY, CUU #### [address] Ketones Auto test strip (U) [Mass/Vol]Ordered By: Shaan Sabillon on 07-16-2023 Ketones (U) [Mass/Vol] Negative Negative [facility] Leukocytes [#/volume] correc darvin for nucleated erythrocytes in Blood by Automated counOrdered By: Shaan Sabillon on 07-16-2023 WBC corrected for nucl RBC Auto (Bld) [#/Vol] 6.9 10*3/uL 3.8-11.6 [facility] Leukocytes [#/volume] in Blo od by Automated countOrdered By: Shaan Sabillon on 07-16-2023 WBC (Bld) [#/Vol] 6.9 10*3/uL Normal 3.8-11.6 [facility] Comment on above: Performed By: #### A JOSESITO RAY, CUU #### [address] Lipase [Enzymatic activity/v olume] in Serum or PlasmaOrdered By: Shaan Sabillon on 07-16-2023 Lipase [Catalytic activity/Vol] 45.0 U/L Normal 11.0-82.0 [facility] Comment on above: Result Comment: PERF ORMED BY: [place] [address] PATHOLOGIST FINISHING FRAME RUNNER BAUTISTA BAKER M.D. Performed By: #### A JOSESITO RAY, CUU #### [address] Lymphocytes [#/volume] in Bl ood by Automated countOrdered By: Shaan Sabillon on 07-16-2023 Lymphocytes (Bld) [#/Vol] 1.3 10*3/uL Normal 1.00-4.8 [facility] Comment on above: Performed By: #### A JOSESITO RAY, CUU #### [facility] [address] [place] [address] Lymphocytes/100 leukocytes i n Blood by Automated countOrdered By: Shaan Sabillon on 07-16-2023 Lymphocytes/100 WBC (Bld) 18.7 % Normal . [facility] Comment on above: Performed By: #### A JOSESITO RAY, CUU #### [address] MCH [Entitic mass] by Automa darvin countOrdered By: Shaan Sabillon on 07-16-2023 MCH (RBC) [Entitic mass] 30.5 pg Normal 24.7-34.3 [facility] Comment on above: Performed By: #### A JOSESITO RAY, CUU #### [address] MCHC Auto (RBC) [Mass/Vol]Or dered By: Shaan Sabillon on 07-16-2023 MCHC (RBC) [Mass/Vol] 34.2 g/dL 32.0-35.0 [facility] MCV [Entitic volume] by Auto mated countOrdered By: Shaan Sabillon on 07-16-2023 MCV (RBC) [Entitic vol] 89.2 fL Normal 80-100 [facility] Comment on above: Performed By: #### A JOSESITO RAY, CUU #### [facility] [address] [place] [address] Monocyte distribution width [Entitic volume] in Blood by AutomatedOrdered By: Shaan Sabillon on 07-16-2023 Monocyte distribution width Auto (Bld) [Entitic vol] 16.79 % 0.00-20.00 [facility] Neutrophils [#/volume] in Bl ood by Automated countOrdered By: Shaan Sabillon on 07-16-2023 Neutrophils (Bld) [#/Vol] 5.2 10*3/uL Normal 1.8-7.7 [facility] Comment on above: Performed By: #### A JOSESITO RAY, CUU #### [facility] [address] Nitrite Test strip Ql (U)Ord ered By: Shaan Sabillon on 07-16-2023 Nitrite Ql (U) Negative Negative [facility] No Panel InformationOrdered By: Shaan Sabillon on 07-16-2023 Estimated GFR (CKD-EPI) > 60.0 mL/Min [facility] Creatinine Clearance (Chem 117.42 [facility] Nucleated erythrocytes [Pres ence] in Blood by Automated countOrdered By: Shaan Sabillon on 07-16-2023 Nucleated RBC Auto Ql (Bld) 0.0 /100{WBC} 0-0.5 [facility] Platelet mean volume [Entiti c volume] in Blood by Automated countOrdered By: Shaan Sabillon on 07-16-2023 Platelet mean volume (Bld) [Entitic vol] 9.0 fL Normal 6.3-10.7 [facility] Comment on above: Performed By: #### A CORY ELIS, CUU #### [address] Platelets [#/volume] in Bloo d by Automated countOrdered By: Shaan Sabillon on 07-16-2023 Platelets (Bld) [#/Vol] 282 10*3/uL Normal 150-450 [facility] Comment on above: Performed By: #### A JOSESITO RAY, CUU #### [facility] [address] [place] [address] [place] Potassium [Moles/volume] in Serum or PlasmaOrdered By: Shaan Sabillon on 07-16-2023 Potassium [Moles/Vol] 3.7 mmol/L Normal 3.5-5.1 [facility] Comment on above: Performed By: #### A CORY ELIS, CUU #### [address] Protein Auto test strip (U) [Mass/Vol]Ordered By: Shaan Sabillon on 07-16-2023 Protein (U) [Mass/Vol] Negative Negative [facility] Protein [Mass/volume] in Ser um or PlasmaOrdered By: Shaan Sabillon on 07-16-2023 Protein [Mass/Vol] 6.8 g/dL Normal 6.4-8.9 [facility] Comment on above: Performed By: #### A JOSESITO RAY, CUU #### [address] Serum globulin measurement b y calculation (mass/volume)Ordered By: Shaan Sabillon on 07-16-2023 Globulin (S) [Mass/Vol] 2.5 g/dL Normal [facility] Comment on above: Performed By: #### A JOSESITO RAY, CUU #### [address] Serum or plasma albumin/glob ulin mass ratioOrdered By: Shaan Sabillon on 07-16-2023 Albumin/Globulin [Mass ratio] 1.7 {ratio} Normal [facility] Comment on above: Performed By: #### A JOSESITO RAY, CUU #### [address] Serum or plasma anion gap de terminationOrdered By: Shaan Sabillon on 07-16-2023 Anion gap [Moles/Vol] 9.5 mmol/L Normal 6.0-15.0 [facility] Comment on above: Performed By: #### A JOSESITO RAY, CUU #### [address] Serum or plasma non-glucuron idated bilirubin measurement (mass/volume)Ordered By: Shaan Sabillon on 07-16-2023 Bilirubin.indirect [Mass/Vol] 0.5 mg/dL [facility] Sodium [Moles/volume] in Ser um or PlasmaOrdered By: Shaan Sabillon on 07-16-2023 Sodium [Moles/Vol] 137 mmol/L Normal 136-145 [facility] Comment on above: Performed By: #### A ALIYAH RAYG, CUU #### [address] Specific gravity Auto test s trip (U) [Rel density]Ordered By: Shaan Sabillon on 07-16-2023 Specific gravity (U) [Rel density] 1.006 1.001-1.030 [facility] Urea nitrogen [Mass/volume] in Serum or PlasmaOrdered By: Shaan Sabillon on 07-16-2023 Urea nitrogen [Mass/Vol] 14 mg/dL Normal 7-25 [facility] Comment on above: Performed By: #### A DDONUAPLUS, UHCG, CUU #### [address] Urinalysison 07-16-2023 Appearance (U) Clear Normal Clear [facility] Comment on above: Order Comment: Name Collection Type:: Clean-Voided Midstream Performed By: #### A DDONUAPLUS, UHCG, CUU #### [address] Bilirubin,Urine Negative Normal Negative [facility] Comment on above: Order Comment: Name Collection Type:: Clean-Voided Midstream Performed By: #### A DDONUAPLUS, UHCG, CUU #### [address] Glucose Ql (U) Normal Normal Normal [facility] Comment on above: Order Comment: Name Collection Type:: Clean-Voided Midstream Performed By: #### A DDONUAPLUS, UHCG, CUU #### [place] [address] [place] Ketones Ql (U) Negative Normal Negative [facility] Comment on above: Order Comment: Name Collection Type:: Clean-Voided Midstream Performed By: #### A DDONUAPLUS, UHCG, CUU #### [address] Leukocyte esterase Test strip Ql (U) Negative Normal Negative [facility] Comment on above: Order Comment: Name Collection Type:: Clean-Voided Midstream Performed By: #### A DDONUAPLUS, UHCG, CUU #### [address] [place] [address] [place] Nitrite,Urine Negative Normal Negative [facility] Comment on above: Order Comment: Name Collection Type:: Clean-Voided Midstream Performed By: #### A DDONUAPLUS, UHCG, CUU #### [place] [address] [place] Occult Blood,Urine Negative Normal Negative [facility] Comment on above: Order Comment: Name Collection Type:: Clean-Voided Midstream Performed By: #### A DDONUAPLUS, UHCG, CUU #### [place] [address] [place] Protein,Urine Negative Normal Negative [facility] Comment on above: Order Comment: Name Collection Type:: Clean-Voided Midstream Performed By: #### A DDONUAPLUS, UHCG, CUU #### [place] [address] [place] Specificy [place],Urine 1.006 Normal 1.001-1.030 [facility] Comment on above: Order Comment: Name Collection Type:: Clean-Voided Midstream Performed By: #### A DDONUAPLUS, UHCG, CUU #### [place] [address] [place] Urobilinogen,Urine Normal Normal Normal [facility] Comment on above: Order Comment: Name Collection Type:: Clean-Voided Midstream Performed By: #### A DDONUAPLUS, UHCG, CUU #### [address] Urine clarity by refractomet ry automatedOrdered By: Shaan Sabillon on 07-16-2023 Clarity Refractometry automated (U) Clear Clear [facility] Urine glucose measurement by automated test strip (mass/volume)Ordered By: Shaan Sabillon on 07-16-2023 Glucose Auto test strip (U) [Mass/Vol] Normal mg/dL Normal [facility] Urine hemoglobin detection b y automated test stripOrdered By: Shaan Sabillon on 07-16-2023 Hemoglobin Auto test strip Ql (U) Negative Negative [facility] Urine leukocyte esterase det ection by automated test stripOrdered By: Shaan Sabillon on 07-16-2023 Leukocyte esterase Auto test strip Ql (U) Negative Negative [facility] Urine pH measurement by auto mated test stripOrdered By: Shaan Sabillon on 07-16-2023 pH (U) 7.5 [pH] Normal 5.0-9.0 [facility] Comment on above: Order Comment: Name Collection Type:: Clean-Voided Midstream Performed By: #### A DDONUAPLUS, UHCG, CUU #### [facility] [address] Urobilinogen Auto test strip (U) [Mass/Vol]Ordered By: Shaan Sabillon on 07-16-2023 Urobilinogen (U) [Mass/Vol] Normal mg/dL Normal [facility] CNPNon 07-13-2023 CNPN Normal [facility] Basic metabolic 2000 panelon 07-06-2023 Anion gap [Moles/Vol] 11 mmol/L Normal 9-18 [facility] Comment on above: Order Comment: Speci men Type: BLOOD SPECIMENOrdering Facility: [facility] Address: [address] [place] [address] Performed By: #### 2 4321-2 ####[facility] LABCLIA [id number] [address] [address] [place] Calcium [Mass/Vol] 8.7 mg/dL Normal 8.5-10.2 [facility] Comment on above: Order Comment: Speci men Type: BLOOD SPECIMENOrdering Facility: [facility] Address: [address] [place] [address] Performed By: #### 2 4321-2 ####[facility] LABCLIA [id number] [address] [address] [place] Chloride [Moles/Vol] 110 mmol/L High 97-105 [facility] Comment on above: Order Comment: Speci men Type: BLOOD SPECIMENOrdering Facility: [facility] Address: [address] [place] [address] Performed By: #### 2 4321-2 ####[facility] LABCLIA [id number] [place] [address] [place] CO2 [Moles/Vol] 20 mmol/L Low 22-30 [facility] Comment on above: Order Comment: Speci men Type: BLOOD SPECIMENOrdering Facility: [facility] Address: [address] [place] [address] Performed By: #### 2 4321-2 ####[facility] LABCLIA [id number] [place] [address] [place] Creatinine [Mass/Vol] 0.64 mg/dL Normal 0.58-0.96 [facility] Comment on above: Order Comment: Speci men Type: BLOOD SPECIMENOrdering Facility: [facility] Address: [address] [place] [address] Performed By: #### 2 4321-2 ####[facility] LABIA [id number] [place] [address] [place] Creatinine and Glomerular filtration rate.predicted panel (S/P/Bld) 119 mL/min/1.73m??? Normal >=60 [facility] Comment on above: Order Comment: Speci men Type: BLOOD SPECIMENOrdering Facility: [facility] Address: [address] [place] [address] Result Comment: Jessica mated Glomerular Filtration Rate [...] actual GFR. Performed By: #### 2 4321-2 ####[facility] LABCLIA [id number] [place] [address] [place] Glucose [Mass/Vol] 89 mg/dL Normal 74-99 [facility] Comment on above: Order Comment: Speci men Type: BLOOD SPECIMENOrdering Facility: [facility] Address: [address] [id number] Result Comment: The [place] [employer] (ADA) provides guidance for cutoff [...] Standards of Medical Care in Diabetes 2016, [place] [employer]. Diabetes Care. 2016.39(Suppl 1). Performed By: #### 2 4321-2 ####[facility] LABCLIA [id number] [place] [address] [place] Potassium [Moles/Vol] 3.9 mmol/L Normal 3.7-5.1 [facility] Comment on above: Order Comment: Speci men Type: BLOOD SPECIMENOrdering Facility: [facility] Address: [address] [place], [place] [address] Performed By: #### 2 4321-2 ####[facility] LABCLIA [id number] [place] [address] [place] Sodium [Moles/Vol] 141 mmol/L Normal 136-144 [facility] Comment on above: Order Comment: Speci men Type: BLOOD SPECIMENOrdering Facility: [facility] Address: [address] [place] [address] Performed By: #### 2 4321-2 ####[facility] LABCLIA [id number] [place] [address] [place] Urea nitrogen [Mass/Vol] 14 mg/dL Normal 7-21 [facility] Comment on above: Order Comment: Speci men Type: BLOOD SPECIMENOrdering Facility: [facility] Address: [address] [place] [address] Performed By: #### 2 4321-2 ####[facility] LABCLIA [id number] [place] [address] [place] CBC W Auto Differential pane l (Bld)on 07-06-2023 Basophils (Bld) [#/Vol] 10*3/uL Normal <0.11 [facility] Comment on above: Order Comment: Speci men Type: BLOOD SPECIMENOrdering Facility: [facility] Address: [address] [place] [address] Performed By: #### 5 7021-8 ####[facility] LABCLIA [id number] [place] [address] [place] Basophils/100 WBC (Bld) 0.5 % Normal [facility] Comment on above: Order Comment: Speci men Type: BLOOD SPECIMENOrdering Facility: [facility] Address: [address] [place] [address] Performed By: #### 5 7021-8 ####[facility] LABIA [id number] [place] [address] [place] Differential cell count method Nom (Bld) Auto Normal [facility] Comment on above: Order Comment: Speci men Type: BLOOD SPECIMENOrdering Facility: [facility] Address: [address] [place] [address] Performed By: #### 5 7021-8 ####[facility] LABCLIA [id number] [place] [address] [place] Eosinophils (Bld) [#/Vol] 10*3/uL Normal <0.46 [facility] Comment on above: Order Comment: Speci men Type: BLOOD SPECIMENOrdering Facility: [facility] Address: [address] [place] [address] Performed By: #### 5 7021-8 ####[facility] LABCLIA [id number] [place] [address] [place] Eosinophils/100 WBC (Bld) 0.2 % Normal [facility] Comment on above: Order Comment: Speci men Type: BLOOD SPECIMENOrdering Facility: [facility] Address: [address] [place] [address] Performed By: #### 5 7021-8 ####[facility] LABCLIA [id number] [place] [address] [place] Erythrocyte distribution width (RBC) [Ratio] 14.0 % Normal 11.5-15.0 [facility] Comment on above: Order Comment: Speci men Type: BLOOD SPECIMENOrdering Facility: [facility] Address: [address] [place] [address] Performed By: #### 5 7021-8 ####[facility] LABCLIA [id number] [place] [address] [place] Hematocrit (Bld) [Volume fraction] 30.6 % Low 36.0-46.0 [facility] Comment on above: Order Comment: Speci men Type: BLOOD SPECIMENOrdering Facility: [facility] Address: [address] [place] [address] Performed By: #### 5 7021-8 ####[facility] LABCLIA [id number] [place] [address] [place] Hemoglobin (Bld) [Mass/Vol] 10.5 g/dL Low 11.5-15.5 [facility] Comment on above: Order Comment: Speci men Type: BLOOD SPECIMENOrdering Facility: [facility] Address: [address] [place] [address] Performed By: #### 5 7021-8 ####[facility] LABCLIA [id number] [place] [address] [place] Immature granulocytes (Bld) [#/Vol] 10*3/uL Normal <0.10 [facility] Comment on above: Order Comment: Speci men Type: BLOOD SPECIMENOrdering Facility: [facility] Address: [address] [place] [address] Performed By: #### 5 7021-8 ####[facility] LABCLIA [id number] [place] [address] [place] Immature granulocytes/100 WBC (Bld) 0.2 % Normal [facility] Comment on above: Order Comment: Speci men Type: BLOOD SPECIMENOrdering Facility: [facility] Address: [address] [place] [address] Performed By: #### 5 7021-8 ####[facility] LABIA [id number] [place] [address] [place] Lymphocytes (Bld) [#/Vol] 1.37 10*3/uL Normal 1.00-4.00 [facility] Comment on above: Order Comment: Speci men Type: BLOOD SPECIMENOrdering Facility: [facility] Address: [address] [place] [address] Performed By: #### 5 7021-8 ####[facility] LABIA [id number] [place] [address] [place] Lymphocytes/100 WBC (Bld) 31.2 % Normal [facility] Comment on above: Order Comment: Speci men Type: BLOOD SPECIMENOrdering Facility: [facility] Address: [address] [place] [address] Performed By: #### 5 7021-8 ####[facility] LABCLIA [id number] [place] [address] [place] MCH (RBC) [Entitic mass] 31.3 pg Normal 26.0-34.0 [facility] Comment on above: Order Comment: Speci men Type: BLOOD SPECIMENOrdering Facility: [facility] Address: [address] [place] [address] Performed By: #### 5 7021-8 ####[facility] LABCLIA [id number] [place] [address] [place] MCHC (RBC) [Mass/Vol] 34.3 g/dL Normal 30.5-36.0 [facility] Comment on above: Order Comment: Speci men Type: BLOOD SPECIMENOrdering Facility: [facility] Address: [address] [place] [address] Performed By: #### 5 7021-8 ####[facility] LABIA [id number] [place] [address] [place] MCV (RBC) [Entitic vol] 91.1 fL Normal 80.0-100.0 [facility] Comment on above: Order Comment: Speci men Type: BLOOD SPECIMENOrdering Facility: [facility] Address: [address] [place] [address] Performed By: #### 5 7021-8 ####[facility] LABCLIA [id number] [place] [address] [place] Monocytes (Bld) [#/Vol] 0.36 10*3/uL Normal <0.87 [facility] Comment on above: Order Comment: Speci men Type: BLOOD SPECIMENOrdering Facility: [facility] Address: [address] [place] [address] Performed By: #### 5 7021-8 ####[facility] LABIA [id number] [place] [address] [place] Monocytes/100 WBC (Bld) 8.2 % Normal [facility] Comment on above: Order Comment: Speci men Type: BLOOD SPECIMENOrdering Facility: [facility] Address: [address] [place] [address] Performed By: #### 5 7021-8 ####[facility] LABCLIA [id number] [place] [address] [place] Neutrophils (Bld) [#/Vol] 2.62 10*3/uL Normal 1.45-7.50 [facility] Comment on above: Order Comment: Speci men Type: BLOOD SPECIMENOrdering Facility: [facility] Address: [address] [place] [address] Performed By: #### 5 7021-8 ####[facility] LABCLIA [id number] [place] [address] [place] Neutrophils/100 WBC (Bld) 59.7 % Normal [facility] Comment on above: Order Comment: Speci men Type: BLOOD SPECIMENOrdering Facility: [facility] Address: [address] [place] [address] Performed By: #### 5 7021-8 ####[facility] LABCLIA [id number] [place] [address] [place] Nucleated RBC (Bld) [#/Vol] 10*3/uL Normal <0.01 [facility] Comment on above: Order Comment: Speci men Type: BLOOD SPECIMENOrdering Facility: [facility] Address: [address] [place] [address] Performed By: #### 5 7021-8 ####[facility] LABCLIA [id number] [place] [address] [place] Nucleated RBC/100 WBC (Bld) [Ratio] 0.0 /100 WBC Normal [facility] Comment on above: Order Comment: Speci men Type: BLOOD SPECIMENOrdering Facility: [facility] Address: [address] [place] [address] Performed By: #### 5 7021-8 ####[facility] LABCLIA [id number] [place] [address] [place] Platelet mean volume (Bld) [Entitic vol] 11.2 fL Normal 9.0-12.7 [facility] Comment on above: Order Comment: Speci men Type: BLOOD SPECIMENOrdering Facility: [facility] Address: [address] [place] [address] Performed By: #### 5 7021-8 ####[facility] LABCLIA [id number] [place] [address] [place] Platelets (Bld) [#/Vol] 219 10*3/uL Normal 150-400 [facility] Comment on above: Order Comment: Speci men Type: BLOOD SPECIMENOrdering Facility: [facility] Address: [address] [place] [address] Performed By: #### 5 7021-8 ####[facility] LABIA [id number] [place] [address] [place] RBC (Bld) [#/Vol] 3.36 10*6/uL Low 3.90-5.20 [facility] Comment on above: Order Comment: Speci men Type: BLOOD SPECIMENOrdering Facility: [facility] Address: [address] [place] [address] Performed By: #### 5 7021-8 ####[facility] LABIA [id number] [place] [address] [place] WBC (Bld) [#/Vol] 4.39 10*3/uL Normal 3.70-11.00 [facility] Comment on above: Order Comment: Speci men Type: BLOOD SPECIMENOrdering Facility: [facility] Address: [address] [place] [address] Performed By: #### 5 7021-8 ####[facility] [id number] [place] [address] [place] CNOVon 07-06-2023 CNOV Normal [facility] CNPTOUTREACHon 07-06-2023 CNPTOUTREACH Normal [facility] CT FLANK WO IVCONon 07-06-19 CT FLANK WO IVCON Normal [facility] ED NOTEon 07-06-2023 ED NOTE Normal [facility] ED NOTE HNO ID: [id number] Author: TG MUNOZ RN Service: Emergency Medicine Author Type: Registered Nurse Type: ED Notes Filed: 07/06/2023 20:35 Note Text: 0 mL post void residual. Normal [facility] ED NOTE HNO ID: [id number] Author: CORIE LINK RN Service: ? Author Type: Registered Nurse Type: ED Notes Filed: 07/06/2023 15:58 Note Text: Bed: E18-10 Expected date: Expected time: Means of arrival: Comments: HOLD: JOSE Normal [facility] ED PROV NOTEon 07-06-2023 ED PROV NOTE Normal [facility] ED Triage Noteon 07-06-2023 ED Triage Note Normal [facility] URINALYSIS, REFLEX MICROSCOP ICon 07-06-2023 Bilirubin Ql (U) Negative Negative [facility] Clarity (Unsp spec) Clear Clear [facility] Color (U) Light Yellow Yellow [facility] Glucose Test strip (U) [Mass/Vol] Negative Trace, Negative [facility] Hemoglobin Ql (U) Negative Negative, Trace Cl [facility] Interpretation and review of laboratory results Normal [facility] Ketones Ql (U) Negative Negative, Trace [facility] Leukocyte esterase Test strip Ql (U) Negative Negative, 25 Pat[place]/uL [facility] Nitrite Ql (U) Negative Negative [facility] pH (U) 7.0 [pH] 5.0 - 8.0 [facility] Protein (U) [Mass/Vol] Negative Trace, Negative [facility] Specific gravity (U) [Rel density] 1.010 1.005 - 1.030 [facility] Urobilinogen Ql (U) Normal Normal [facility] Bilirubin Ql (U) Negative Normal Negative [facility] Comment on above: Order Comment: Speci men Type: URINE SPECIMENOrdering Facility: [facility] Address: [address] [place] [address] Performed By: #### L [id number] ####[facility] LABCLIA [id number] [place] [address] [place] Clarity (Unsp spec) Clear Normal Clear [facility] Comment on above: Order Comment: Speci men Type: URINE SPECIMENOrdering Facility: [facility] Address: [address] [place] [address] Performed By: #### L [id number] ####[facility] LABCLIA [id number] [place] [address] [place] Color (U) Light Yellow Normal Yellow [facility] Comment on above: Order Comment: Speci men Type: URINE SPECIMENOrdering Facility: [facility] Address: [address] [place] [address] Performed By: #### L [id number] ####[facility] LABCLIA [id number] [place] [address] [place] Glucose Test strip (U) [Mass/Vol] Negative Normal Trace, Negative [facility] Comment on above: Order Comment: Speci men Type: URINE SPECIMENOrdering Facility: [facility] Address: [address] [place] [address] Performed By: #### L [id number] ####[facility] LABCLIA [id number] [place] [address] [place] Hemoglobin Ql (U) Negative Normal Negative, Trace Cl [facility] Comment on above: Order Comment: Speci men Type: URINE SPECIMENOrdering Facility: [facility] Address: [address] [place] [address] Performed By: #### L [id number] ####[facility] LABCLIA [id number] [place] [address] [place] Ketones Ql (U) Negative Normal Negative, Trace [facility] Comment on above: Order Comment: Speci men Type: URINE SPECIMENOrdering Facility: [facility] Address: [address] [place] [address] Performed By: #### L [id number] ####[facility] LABCLIA [id number] [place] [address] [place] Leukocyte esterase Test strip Ql (U) Negative Normal Negative, 25 Patito/uL [facility] Comment on above: Order Comment: Speci men Type: URINE SPECIMENOrdering Facility: [facility] Address: [address] [place] [address] Performed By: #### L [id number] ####[facility] LABCLIA [id number] [place] [address] [place] Nitrite Ql (U) Negative Normal Negative [facility] Comment on above: Order Comment: Speci men Type: URINE SPECIMENOrdering Facility: [facility] Address: [address] [place] [address] Performed By: #### L [id number] ####[facility] LABIA [id number] [place] [address] [place] pH (U) 7.0 [pH] Normal 5.0-8.0 [facility] Comment on above: Order Comment: Speci men Type: URINE SPECIMENOrdering Facility: [facility] Address: [address] [place] [address] Performed By: #### L [id number] ####[facility] LABIA [id number] [place] [address] [place] Protein (U) [Mass/Vol] Negative Normal Trace, Negative [facility] Comment on above: Order Comment: Speci men Type: URINE SPECIMENOrdering Facility: [facility] Address: [address] [place] [address] Performed By: #### L [id number] ####[facility] LABIA [id number] [place] [address] [place] Specific gravity (U) [Rel density] 1.010 Normal 1.005-1.030 [facility] Comment on above: Order Comment: Speci men Type: URINE SPECIMENOrdering Facility: [facility] Address: [address] [place] [address] Performed By: #### L [id number] ####[facility] LABIA [id number] [place] [address] [place] Urobilinogen Ql (U) Normal Normal Normal [facility] Comment on above: Order Comment: Speci men Type: URINE SPECIMENOrdering Facility: [facility] Address: [address] [place] [address] Performed By: #### L [id number] ####[facility] LABCLIA [id number] [place] [address] [place] Urinalysis complete panel (U )on 07-06-2023 Bacteria LM.HPF (Urine sed) [#/Area] Negative Normal Negative [facility] Comment on above: Order Comment: Speci men Type: URINE SPECIMENOrdering Facility: [facility] Address: [address] [place] [address] Performed By: #### 2 4356-8 ####[facility] LABCLIA [id number] [place] [address] [place] Bilirubin Ql (U) Negative Normal Negative [facility] Comment on above: Order Comment: Speci men Type: URINE SPECIMENOrdering Facility: [facility] Address: [address] [place] [address] Performed By: #### 2 4356-8 ####[facility] LABCLIA [id number] [place] [address] [place] Clarity (Unsp spec) Clear Normal Clear [facility] Comment on above: Order Comment: Speci men Type: URINE SPECIMENOrdering Facility: [facility] Address: [address] [place] [address] Performed By: #### 2 4356-8 ####[facility] LABCLIA [id number] [place] [address] [place] Color (U) Yellow Normal Yellow [facility] Comment on above: Order Comment: Speci men Type: URINE SPECIMENOrdering Facility: [facility] Address: [address] [place] [address] Performed By: #### 2 4356-8 ####[facility] LABCLIA [id number] [address] [place] Epithelial cells LM.HPF (Urine sed) [#/Area] None Seen Normal [facility] Comment on above: Order Comment: Speci men Type: URINE SPECIMENOrdering Facility: [facility] Address: [address] [place] [address] Performed By: #### 2 4356-8 ####[facility] LABCLIA [id number] [place] [address] [place] Glucose Test strip (U) [Mass/Vol] Negative Normal Negative [facility] Comment on above: Order Comment: Speci men Type: URINE SPECIMENOrdering Facility: [facility] Address: [address] [place] [address] Performed By: #### 2 4356-8 ####[facility] LABCLIA [id number] [place] [address] [place] Hemoglobin Ql (U) Negative Normal Negative [facility] Comment on above: Order Comment: Speci men Type: URINE SPECIMENOrdering Facility: [facility] Address: [address] [place] [address] Performed By: #### 2 4356-8 ####[facility] LABCLIA [id number] [place] [address] [place] Hyaline casts (Urine sed) [#/Area] 0 /[LPF] Normal 0 /LPF [facility] Comment on above: Order Comment: Speci men Type: URINE SPECIMENOrdering Facility: [facility] Address: [address] [place] [address] Performed By: #### 2 4356-8 ####[facility] LABCLIA [id number] [address] [place] Ketones Ql (U) Negative Normal Negative [facility] Comment on above: Order Comment: Speci men Type: URINE SPECIMENOrdering Facility: [facility] Address: [address] [place] [address] Performed By: #### 2 4356-8 ####[facility] LABCLIA [id number] [place] [address] [place] Leukocyte esterase Test strip Ql (U) Negative Normal Negative [facility] Comment on above: Order Comment: Speci men Type: URINE SPECIMENOrdering Facility: [facility] Address: [address] [place] [address] Performed By: #### 2 4356-8 ####[facility] LABCLIA [id number] [place] [address] [place] Nitrite Ql (U) Negative Normal Negative [facility] Comment on above: Order Comment: Speci men Type: URINE SPECIMENOrdering Facility: [facility] Address: [address] [place] [address] Performed By: #### 2 4356-8 ####[facility] LABCLIA [id number] [place] [address] [place] pH (U) 7.5 [pH] Normal <8.5 [facility] Comment on above: Order Comment: Speci men Type: URINE SPECIMENOrdering Facility: [facility] Address: [address] [place] [address] Performed By: #### 2 4356-8 ####[facility] LABCLIA [id number] [place] [address] [place] Protein (U) [Mass/Vol] Negative Normal Negative [facility] Comment on above: Order Comment: Speci men Type: URINE SPECIMENOrdering Facility: [facility] Address: [address] [place] [address] Performed By: #### 2 4356-8 ####[facility] LABCLIA [id number] [place] [address] [place] RBC LM.HPF (Urine sed) [#/Area] 0-2 /HPF Normal 0-2 /HPF [facility] Comment on above: Order Comment: Speci men Type: URINE SPECIMENOrdering Facility: [facility] Address: [address] [place] [address] Performed By: #### 2 4356-8 ####[facility] LABIA [id number] [place] [address] [place] Specific gravity (U) [Rel density] 1.020 Normal 1.005-1.030 [facility] Comment on above: Order Comment: Speci men Type: URINE SPECIMENOrdering Facility: [facility] Address: [address] [place] [address] Performed By: #### 2 4356-8 ####[facility] [id number] [place] [address] [place] Urobilinogen Ql (U) 1.0 EU/dL Normal 0.2-1.0 EU/dL [facility] Comment on above: Order Comment: Speci men Type: URINE SPECIMENOrdering Facility: [facility] Address: [address] [place] [address] Performed By: #### 2 4356-8 ####[facility] [id number] [place] [address] [place] WBC LM.HPF (Urine sed) [#/Area] 0-5 /HPF Normal 0-5 /HPF [facility] Comment on above: Order Comment: Speci men Type: URINE SPECIMENOrdering Facility: [facility] Address: [address] [place] [address] Performed By: #### 2 4356-8 ####[facility] [id number] [place] [id number] [place] XR CHEST 2V FRONTAL/LATon XR CHEST 2V FRONTAL/LAT Normal [facility] Glucose Test strip manual (B ld) [Mass/Vol]on 07-03-2023 Glucose [Mass/Vol] 121 mg/dL High 74 - 99 mg/dL [facility] Interpretation and review of laboratory results [facility] Glucose [Mass/Vol] 121 mg/dL High 74-[address] [facility] Comment on above: Performed By: #### 2 4356-8 #### MELISA Galvan ([id number]) [facility] () [address] [place] [address] CBC panel Auto (Bld)on 07-01 Erythrocyte distribution width (RBC) [Ratio] 13.4 % 11.5 - 14.5 % [facility] Hematocrit (Bld) [Volume fraction] 35.5 % Low 36.0 - 46.0 % [facility] Hemoglobin (Bld) [Mass/Vol] 11.8 g/dL Low 12.0 - 16.0 g/dL [facility] Interpretation and review of laboratory results Abnormal [facility] MCH (RBC) [Entitic mass] 30.3 pg 26.0 - 34.0 pg [facility] MCHC (RBC) [Mass/Vol] 33.2 g/dL 32.0 - 36.0 g/dL [facility] MCV (RBC) [Entitic vol] 91 fL 80 - 100 fL [facility] Nucleated RBC/100 WBC (Bld) [Ratio] 0.0 % [facility] Platelets (Bld) [#/Vol] 223 10*3/uL [facility] RBC (Bld) [#/Vol] 3.89 10*6/uL Low [facility] WBC (Bld) [#/Vol] 4.5 10*3/uL [facility] Erythrocyte distribution width (RBC) [Ratio] 13.4 % Normal 11.5-14.5 [facility] Comment on above: Performed By: #### 2 4356-8 #### MELISA Galvan (38952) [facility] () [address] [place] [address] Hematocrit (Bld) [Volume fraction] 35.5 % Low 36.0-46.0 [facility] Comment on above: Performed By: #### 2 4356-8 #### MELISA Galvan ([id number]) [facility] () [address] [place] [address] Hemoglobin (Bld) [Mass/Vol] 11.8 g/dL Low 12.0-16.0 [facility] Comment on above: Performed By: #### 2 4356-8 #### MELISA Galvan () [facility] () [address] [place] [address] MCH (RBC) [Entitic mass] 30.3 pg Normal 26.0-34.0 [facility] Comment on above: Performed By: #### 2 4356-8 #### MELISA Galvan () [facility] () [address] [place] [address] MCHC (RBC) [Mass/Vol] 33.2 g/dL Normal 32.0-36.0 [facility] Comment on above: Performed By: #### 2 4356-8 #### MELISA Galvan () [facility] () [address] [place] [address] MCV (RBC) [Entitic vol] 91 fL Normal 80-100 [facility] Comment on above: Performed By: #### 2 4356-8 #### MELISA Galvan () [facility] () [address] [place] [address] Nucleated RBC/100 WBC (Bld) [Ratio] 0.0 /100 WBCs Normal 0.0-0.0 [facility] Comment on above: Performed By: #### 2 4356-8 #### MELISA Galvan () [facility] () [address] [place] [address] Platelets (Bld) [#/Vol] 223 x10*3/uL Normal 150-450 [facility] Comment on above: Performed By: #### 2 4356-8 #### MELISA Galvan (41812) [facility] () [address] [place] [address] RBC (Bld) [#/Vol] 3.89 x10*6/uL Low 4.00-5.20 [facility] Comment on above: Performed By: #### 2 4356-8 #### MELISA Galvan (64606) [facility] () [address] [place] [address] WBC (Bld) [#/Vol] 4.5 x10*3/uL Normal 4.4-11.3 [facility] Comment on above: Performed By: #### 2 4356-8 #### MELISA Galvan (40969) [facility] () [address] [place] [address] Glucose Test strip manual (B ld) [Mass/Vol]on 07-02-2023 Glucose [Mass/Vol] 103 mg/dL High 74 - 99 mg/dL [facility] Interpretation and review of laboratory results Abnormal [facility] Glucose [Mass/Vol] 103 mg/dL High 74-[address] [facility] Comment on above: Performed By: #### 2 4356-8 #### MELISA Galvan (60974) [facility] () [address] [place] [address] Glucose [Mass/Vol] 112 mg/dL High 74 - 99 mg/dL [facility] Interpretation and review of laboratory results Abnormal [facility] Glucose [Mass/Vol] 112 mg/dL High 74-[address] [facility] Comment on above: Performed By: #### 2 4356-8 #### MELISA Galvan ([id number]) [facility] () [address] [place] [address] Glucose [Mass/Vol] 99 mg/dL 74 - 99 mg/dL [facility] Interpretation and review of laboratory results Normal [facility] Glucose [Mass/Vol] 99 mg/dL Normal 74-[address] [facility] Comment on above: Performed By: #### 2 4356-8 #### MELISA POOLEO J (29760) [facility] () [address] [place] [address] Glucose [Mass/Vol] 135 mg/dL High 74 - 99 mg/dL [facility] Interpretation and review of laboratory results Abnormal [facility] Glucose [Mass/Vol] 135 mg/dL High 74-[address] [facility] Comment on above: Performed By: #### 2 4356-8 #### MELISA Galvan (40825) [facility] () [address] [place] [address] Renal function 2000 panelon 07-02-2023 Albumin [Mass/Vol] 4.0 g/dL 3.5 - 5.0 g/dL [facility] Anion gap [Moles/Vol] 11 mmol/L NINF - 19 mmol/L [facility] Calcium [Mass/Vol] 8.6 mg/dL 8.5 - 10.4 mg/dL [facility] Chloride [Moles/Vol] 103 mmol/L 97 - 107 mmol/L [facility] CO2 [Moles/Vol] 23 mmol/L Low 24 - 31 mmol/L [facility] Creatinine [Mass/Vol] 0.70 mg/dL 0.40 - 1.60 mg/dL [facility] eGFR - PINF [facility] Comment on above: Calculations of jessica mated GFR are performed using the 2020 CKD-EPI Study Refit equation without the race variable for the IDMS-Traceable creatinine methods. https://jasn.asnjournals.org/content///ASN.14281198 88 Glucose [Mass/Vol] 101 mg/dL High 65 - 99 mg/dL [facility] Interpretation and review of laboratory results Abnormal [facility] Phosphate [Mass/Vol] 4.0 mg/dL 2.5 - 4.5 mg/dL [facility] Potassium [Moles/Vol] 3.9 mmol/L 3.4 - 5.1 mmol/L [facility] Sodium [Moles/Vol] 137 mmol/L 133 - 145 mmol/L [facility] Urea nitrogen [Mass/Vol] 13 mg/dL 8 - 25 mg/dL [facility] Albumin [Mass/Vol] 4.0 g/dL Normal 3.5-5.[address] [facility] Comment on above: Performed By: #### 2 4356-8 #### MELISA Galvan (67254) [facility] () [address] [place] [address] Anion gap [Moles/Vol] 11 mmol/L Normal <=19 [facility] Comment on above: Performed By: #### 2 4356-8 #### MELISA Galvan (67411) [facility] () [address] [place] [address] Calcium [Mass/Vol] 8.6 mg/dL Normal 8.5-10.[address] [facility] Comment on above: Performed By: #### 2 4356-8 #### MELISA Galvan (36370) [facility] () [address] [place] [address] Chloride [Moles/Vol] 103 mmol/L Normal 97-107 [facility] Comment on above: Performed By: #### 2 4356-8 #### MELISA Galvan (87446) [facility] () [address] [place] [address] CO2 [Moles/Vol] 23 mmol/L Low 24-31 [facility] Comment on above: Performed By: #### 2 4356-8 #### MELISA Galvan (79332) [facility] () [address] [place] [address] Creatinine [Mass/Vol] 0.70 mg/dL Normal 0.40-1.60 [facility] Comment on above: Performed By: #### 2 4356-8 #### MELISA Galvan (97670) [facility] () [address] [place] [address] GFR/1.73 sq M.predicted MDRD (S/P/Bld) [Vol rate/Area] mL/min/{1.73_m2} Normal >60 [facility] Comment on above: Result Comment: Calc ulations of estimated GFR are performed using the 2020 CKD-EPI Study Refit equation without the race variable for the IDMS-Traceable creatinine methods. https://jasn.asnjournals.org/content//ASN.39392204 88 Performed By: #### 2 4356-8 #### MELISA Galvan (59832) [facility] () [address] [place] [address] Glucose [Mass/Vol] 101 mg/dL High 65-[address] [facility] Comment on above: Performed By: #### 2 4356-8 #### MELISA Galvan (48866) [facility] () [address] [place] [address] Phosphate [Mass/Vol] 4.0 mg/dL Normal 2.5-4.5 [facility] Comment on above: Performed By: #### 2 4356-8 #### MELISA Galvan (08553) [facility] () [address] [place] [address] Potassium [Moles/Vol] 3.9 mmol/L Normal 3.4-5.1 [facility] Comment on above: Performed By: #### 2 4356-8 #### MELISA Galvan (18804) [facility] () [address] [place] [address] Sodium [Moles/Vol] 137 mmol/L Normal 133-[address] [facility] Comment on above: Performed By: #### 2 4356-8 #### MELISA Galvan (26794) [facility] () [address] [place] [address] Urea nitrogen [Mass/Vol] 13 mg/dL Normal 8-25 [facility] Comment on above: Performed By: #### 2 4356-8 #### MELISA Galvan (57054) [facility] () [address] [place] [address] CBC panel Auto (Bld)on 06-30 Erythrocyte distribution width (RBC) [Ratio] 13.7 % 11.5 - 14.5 % [facility] Hematocrit (Bld) [Volume fraction] 36.7 % 36.0 - 46.0 % [facility] Hemoglobin (Bld) [Mass/Vol] 12.0 g/dL 12.0 - 16.0 g/dL [facility] Interpretation and review of laboratory results Abnormal [facility] MCH (RBC) [Entitic mass] 31.1 pg 26.0 - 34.0 pg [facility] MCHC (RBC) [Mass/Vol] 32.7 g/dL 32.0 - 36.0 g/dL [facility] MCV (RBC) [Entitic vol] 95 fL 80 - 100 fL [facility] Nucleated RBC/100 WBC (Bld) [Ratio] 0.0 % [facility] Platelets (Bld) [#/Vol] 228 10*3/uL [facility] RBC (Bld) [#/Vol] 3.86 10*6/uL [facility] WBC (Bld) [#/Vol] 3.3 10*3/uL [facility] Erythrocyte distribution width (RBC) [Ratio] 13.7 % Normal 11.5-14.5 [facility] Comment on above: Performed By: #### 5 8410-2 #### MELISA Galvan (76497) [facility] () [address] [place] [address] Hematocrit (Bld) [Volume fraction] 36.7 % Normal 36.0-46.0 [facility] Comment on above: Performed By: #### 5 8410-2 #### MELISA Galvan (23225) [facility] () [address] [place] [address] Hemoglobin (Bld) [Mass/Vol] 12.0 g/dL Normal 12.0-16.0 [facility] Comment on above: Performed By: #### 5 8410-2 #### MELISA Galvan (00324) [facility] () [address] [place] [address] MCH (RBC) [Entitic mass] 31.1 pg Normal 26.0-34.0 [facility] Comment on above: Performed By: #### 5 8410-2 #### MELISA Galvan (48343) [facility] () [address] [place] [address] MCHC (RBC) [Mass/Vol] 32.7 g/dL Normal 32.0-36.0 [facility] Comment on above: Performed By: #### 5 8410-2 #### MELISA Galvan (61895) [facility] () [address] [place] [address] MCV (RBC) [Entitic vol] 95 fL Normal 80-100 [facility] Comment on above: Performed By: #### 5 8410-2 #### MELISA Galvan (11655) [facility] () [address] [place] [address] Nucleated RBC/100 WBC (Bld) [Ratio] 0.0 /100 WBCs Normal 0.0-0.0 [facility] Comment on above: Performed By: #### 5 8410-2 #### MELISA Galvan (62727) [facility] () [address] [place] [address] Platelets (Bld) [#/Vol] 228 x10*3/uL Normal 150-450 [facility] Comment on above: Performed By: #### 5 8410-2 #### MELISA Galvan (79391) [facility] () [address] [place] [address] RBC (Bld) [#/Vol] 3.86 x10*6/uL Low 4.00-5.20 [facility] Comment on above: Performed By: #### 5 8410-2 #### MELISA Galvan (08436) [facility] () [address] [place] [address] WBC (Bld) [#/Vol] 3.3 x10*3/uL Low 4.4-11.3 [facility] Comment on above: Performed By: #### 5 8410-2 #### MELISA Galvan (60632) [facility] () [address] [place] [address] Glucose Test strip manual (B ld) [Mass/Vol]on 07-01-2023 Glucose [Mass/Vol] 104 mg/dL High 74 - 99 mg/dL [facility] Interpretation and review of laboratory results Abnormal [facility] Glucose [Mass/Vol] 104 mg/dL High 74-[address] [facility] Comment on above: Performed By: #### 5 8410-2 #### MELISA Galvan (65882) [facility] () [address] [place] [address] Glucose [Mass/Vol] 92 mg/dL 74 - 99 mg/dL [facility] Interpretation and review of laboratory results Normal [facility] Glucose [Mass/Vol] 92 mg/dL Normal 74-[address] [facility] Comment on above: Performed By: #### 5 8410-2 #### MELISA Galvan (56964) [facility] () [address] [place] [address] Glucose [Mass/Vol] 88 mg/dL 74 - 99 mg/dL [facility] Interpretation and review of laboratory results Normal [facility] Glucose [Mass/Vol] 88 mg/dL Normal 74-[address] [facility] Comment on above: Performed By: #### 5 8410-2 #### MELISA Galvan (30756) [facility] () [address] [place] [address] Glucose [Mass/Vol] 105 mg/dL High 74 - 99 mg/dL [facility] Interpretation and review of laboratory results Abnormal [facility] Glucose [Mass/Vol] 105 mg/dL High 74-[address] [facility] Comment on above: Performed By: #### 5 8410-2 #### MELISA Galvan (86510) [facility] () [address] [place] [address] Glucose [Mass/Vol] 86 mg/dL 74 - 99 mg/dL [facility] Interpretation and review of laboratory results Normal [facility] Glucose [Mass/Vol] 86 mg/dL Normal 74-[address] [facility] Comment on above: Performed By: #### 5 8410-2 #### MELISA Galvan (03889) [facility] () [address] [place] [address] Glucose [Mass/Vol] 98 mg/dL 74 - 99 mg/dL [facility] Interpretation and review of laboratory results Normal [facility] Glucose [Mass/Vol] 98 mg/dL Normal 74-[address] [facility] Comment on above: Performed By: #### 5 8410-2 #### MELISA Galvan (15654) [facility] () [address] [place] [address] [facility] 2023 Home Health Records [id number] Normal [facility] Magnesiumon 07-01-2023 Magnesium [Mass/Vol] 2.00 mg/dL 1.60 - 3.10 mg/dL [facility] Magnesium [Mass/Vol] 2.00 mg/dL Normal 1.60-3.10 [facility] Comment on above: Performed By: #### 5 8410-2 #### MELISA Galvan (37139) [facility] () [address] [place] [address] Magnesium [Mass/Vol]on 06-30 Interpretation and review of laboratory results Normal [facility] Renal function 2000 panelon 07-01-2023 Albumin [Mass/Vol] 3.8 g/dL 3.5 - 5.0 g/dL [facility] Anion gap [Moles/Vol] 12 mmol/L NINF - 19 mmol/L [facility] Calcium [Mass/Vol] 8.5 mg/dL 8.5 - 10.4 mg/dL [facility] Chloride [Moles/Vol] 106 mmol/L 97 - 107 mmol/L [facility] CO2 [Moles/Vol] 21 mmol/L Low 24 - 31 mmol/L [facility] Creatinine [Mass/Vol] 0.70 mg/dL 0.40 - 1.60 mg/dL [facility] eGFR - PINF [facility] Comment on above: Calculations of jessica mated GFR are performed using the 2020 CKD-EPI Study Refit equation without the race variable for the IDMS-Traceable creatinine methods. https://jasn.asnjournals.org/content//ASN.58019513 88 Glucose [Mass/Vol] 113 mg/dL High 65 - 99 mg/dL [facility] Interpretation and review of laboratory results Abnormal [facility] Phosphate [Mass/Vol] 5.4 mg/dL High 2.5 - 4.5 mg/dL [facility] Potassium [Moles/Vol] 3.9 mmol/L 3.4 - 5.1 mmol/L [facility] Sodium [Moles/Vol] 139 mmol/L 133 - 145 mmol/L [facility] Urea nitrogen [Mass/Vol] 12 mg/dL 8 - 25 mg/dL [facility] Albumin [Mass/Vol] 3.8 g/dL Normal 3.5-5.[address] [facility] Comment on above: Performed By: #### 5 8410-2 #### MELISA Galvan (73667) [facility] (MW) [address] [place] [address] Anion gap [Moles/Vol] 12 mmol/L Normal <=19 [facility] Comment on above: Performed By: #### 5 8410-2 #### MELISA Galvan (63147) [facility] () [address] [place] [address] Calcium [Mass/Vol] 8.5 mg/dL Normal 8.5-10.[address] [facility] Comment on above: Performed By: #### 5 8410-2 #### MELISA Galvan (13954) [facility] () [address] [place] [address] Chloride [Moles/Vol] 106 mmol/L Normal 97-107 [facility] Comment on above: Performed By: #### 5 8410-2 #### MELISA Galvan (87317) [facility] () [address] [place] [address] CO2 [Moles/Vol] 21 mmol/L Low 24-31 [facility] Comment on above: Performed By: #### 5 8410-2 #### MELISA Galvan (50190) [facility] () [address] [place] [address] Creatinine [Mass/Vol] 0.70 mg/dL Normal 0.40-1.60 [facility] Comment on above: Performed By: #### 5 8410-2 #### MELISA Galvan (53686) [facility] () [address] [place] [address] GFR/1.73 sq M.predicted MDRD (S/P/Bld) [Vol rate/Area] mL/min/{1.73_m2} Normal >60 [facility] Comment on above: Result Comment: Calc ulations of estimated GFR are performed using the 2020 CKD-EPI Study Refit equation without the race variable for the IDMS-Traceable creatinine methods. https://jasn.asnjournals.org/content//ASN.90780598 88 Performed By: #### 5 8410-2 #### MELISA Galvan (12715) [facility] () [address] [place] [address] Glucose [Mass/Vol] 113 mg/dL High 65-[address] [facility] Comment on above: Performed By: #### 5 8410-2 #### MELISA Galvan (79469) [facility] () [address] [place] [address] Phosphate [Mass/Vol] 5.4 mg/dL High 2.5-4.5 [facility] Comment on above: Performed By: #### 5 8410-2 #### MELISA Galvan (78591) [facility] () [address] [place] [address] Potassium [Moles/Vol] 3.9 mmol/L Normal 3.4-5.1 [facility] Comment on above: Performed By: #### 5 8410-2 #### MELISA Galvan (59435) [facility] () [address] [place] [address] Sodium [Moles/Vol] 139 mmol/L Normal 133-[address] [facility] Comment on above: Performed By: #### 5 8410-2 #### MELISA Galvan (94627) [facility] () [address] [place] [address] Urea nitrogen [Mass/Vol] 12 mg/dL Normal 8-25 [facility] Comment on above: Performed By: #### 5 8410-2 #### MELISA Galvan (35905) [facility] () [address] [place] [address] Vascular US mesenteric arter y duplex completeon 07-01-2023 [facility] [address] [facility], [place] [address] Vascular Lab Report VASC US MESENTERIC ARTERY DUPLEX COMPLETE Patient Name: ABBEY Oneil Physician: [id number] Magaña MD Study Date: 06/30/2023 Ordering Provider: [id number] JAMIL GAVIN MRN/PID: [id number] Fellow: Technologist: Leia Gilesnoemí RVT Date of /Age: 2 1990 / 33 years Technologist 2: Gender: F Admission Status: Inpatient Location Performed: [facility] 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 CPT Codes: 27442 Mesenteric Duplex scan Pertinent Release of the [...] Final (Amended) Sherry Santillan MD - 07/01/2023 [place] [address] Vascular Lab Report VASC US MESENTERIC ARTERY DUPLEX COMPLETE Patient Name: ABBEY Lesli GARCIA Reading Physician: Brandy Magaña MD Study Date: 06/30/2023 Ordering Provider: [id number] JAMIL GAVIN MRN/PID: [id number] Fellow: Technologist: Leia Degroot RVT Date of /Age: 2 1990 / 33 years Technologist 2: Gender: F Admission Status: Inpatient Location Performed: [facility] 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 Report Amended Report Amended By: [id number] Magaña MD Date and Time: 06/30/2023 at [...] PSV 89 cm/s KEELY PSV 105 cm/s [id number] Magaña MD Brandy Magaña MD Electronically Amended 06/30/2023, 12:15 PM Final (Amended) [facility] Work Phone: [facility] Work Phone: XR CHEST 1 VIEWon 05-16-2024 XR CHEST 1 VIEW Interpreted By: Dotty Salcido, STUDY: XR CHEST 1 VIEW 07/01/2023 1:30 pm INDICATION: Signs/Symptoms:PICC line position verification COMPARISON: 03/17/2023 ACCESSION NUMBER(S): [id number] ORDERING CLINICIAN: DOLORES COX TECHNIQUE: Single AP view chest FINDINGS: Cardiomediastinal silhouette is within normal limits. Right-sided PICC line identified with tip in the region of the mid SVC. No infiltrate or effusion is identified. Visualized osseous structures unremarkable. IMPRESSION: 1. Right PICC line placement with tip in the mid SVC. Signed by: Dotty Salcido 07/01/2023 1:46 PM Dictation workstation: OVIA [facility] XR Chest Single viewon 06-30 1. Right PICC line placement with tip in the mid SVC. Signed by: Dotty Salcido 07/01/2023 1:46 PM Dictation workstation: [id number] Interpreted By: Dotty Salcido, STUDY: XR CHEST 1 VIEW 07/01/2023 1:30 pm INDICATION: Signs/Symptoms:PICC line position verification COMPARISON: 03/17/2023 ACCESSION NUMBER(S): [id number] ORDERING CLINICIAN: DOLORES COX TECHNIQUE: Single AP [...] line position verification COMPARISON: 03/17/2023 ACCESSION NUMBER(S): [id number] ORDERING CLINICIAN: DOLORES COX TECHNIQUE: Single AP view chest FINDINGS: Cardiomediastinal silhouette is within normal limits. Right-sided PICC line identified with tip in the region of the mid SVC. No infiltrate or effusion is identified. Visualized osseous structures unremarkable. IMPRESSION: 1. Right PICC line placement with tip in the mid SVC. Signed by: Dotty Salcido 07/01/2023 1:46 PM Dictation workstation: [id number] [facility] Work Phone: Radiology Study observation (narrative) [facility] Work Phone: XR Chest Single viewOrdered By: Dotty Salcido on 07-01-2023 [facility] Work Phone: CBC panel Auto (Bld)on 06-29 Erythrocyte distribution width (RBC) [Ratio] 13.8 % 11.5 - 14.5 % [facility] Hematocrit (Bld) [Volume fraction] 32.2 % Low 36.0 - 46.0 % [facility] Hemoglobin (Bld) [Mass/Vol] 10.8 g/dL Low 12.0 - 16.0 g/dL [facility] Interpretation and review of laboratory results Abnormal [facility] MCH (RBC) [Entitic mass] 31.0 pg 26.0 - 34.0 pg [facility] MCHC (RBC) [Mass/Vol] 33.5 g/dL 32.0 - 36.0 g/dL [facility] MCV (RBC) [Entitic vol] 93 fL 80 - 100 fL [facility] Nucleated RBC/100 WBC (Bld) [Ratio] 0.0 % [facility] Platelets (Bld) [#/Vol] 217 10*3/uL [facility] RBC (Bld) [#/Vol] 3.48 10*6/uL Low [facility] WBC (Bld) [#/Vol] 5.0 10*3/uL [facility] Erythrocyte distribution width (RBC) [Ratio] 13.8 % Normal 11.5-14.5 [facility] Comment on above: Performed By: #### 5 8410-2 ####MELISA Galvan ([id number])[facility] ()[address] [place] [address] Hematocrit (Bld) [Volume fraction] 32.2 % Low 36.0-46.0 [facility] Comment on above: Performed By: #### 5 8410-2 ####MELISA Galvan ([id number])[facility] ()[address] [place] [address] Hemoglobin (Bld) [Mass/Vol] 10.8 g/dL Low 12.0-16.0 [facility] Comment on above: Performed By: #### 5 8410-2 ####MELISA Galvan ()[facility] ()[address] [place] [address] MCH (RBC) [Entitic mass] 31.0 pg Normal 26.0-34.0 [facility] Comment on above: Performed By: #### 5 8410-2 ####MELISA Galvan ()[facility] ()[address] [place] [address] MCHC (RBC) [Mass/Vol] 33.5 g/dL Normal 32.0-36.0 [facility] Comment on above: Performed By: #### 5 8410-2 ####MELISA Galvan ([id number])[facility] ()[address] [place] [address] MCV (RBC) [Entitic vol] 93 fL Normal 80-100 [facility] Comment on above: Performed By: #### 5 8410-2 ####MELISA Galvan ([id number])[facility] ()[address] [place] [address] Nucleated RBC/100 WBC (Bld) [Ratio] 0.0 /100 WBCs Normal 0.0-0.0 [facility] Comment on above: Performed By: #### 5 8410-2 ####MELISA Galvan ([id number])[facility] ()[address] [place] [address] Platelets (Bld) [#/Vol] 217 x10*3/uL Normal 150-450 [facility] Comment on above: Performed By: #### 5 8410-2 ####MELISA Galvan ([id number])[facility] ()[address] [place] [address] RBC (Bld) [#/Vol] 3.48 x10*6/uL Low 4.00-5.20 [facility] Comment on above: Performed By: #### 5 8410-2 ####MELISA Galvan ([id number])[facility] ()[address] [place] [address] WBC (Bld) [#/Vol] 5.0 x10*3/uL Normal 4.4-11.3 [facility] Comment on above: Performed By: #### 5 8410-2 ####MELISA ALEXANDRO J ([id number])[facility] ()[address] [facility] [place] [address] [place] ANGIO ABDOMEN PELVIS W AN D/OR WO IV IV CONTRASTon 06-30-2023 CT ANGIO ABDOMEN PELVIS W AND/OR WO IV IV CONTRAST Interpreted By: Audie Gutierrez, STUDY: CT ANGIO ABDOMEN PELVIS W AND/OR WO IV IV CONTRAST; 06/30/2023 10:56 am INDICATION: Signs/Symptoms:Carmela ac disease; COMPARISON: 06/29/2023 ACCESSION NUMBER(S): [id number] ORDERING CLINICIAN: TIFFANIE MENDEZ TECHNIQUE: Contiguous axial [...] Audie Gutierrez 06/30/2023 12:06 PM Dictation workstation: [id number] [facility] Comment on above: Order Comment: CTA, turbulent [...] Audie Gutierrez 06/30/2023 12:06 PM Dictation workstation: [id number] MMODAL Interpreted By: Audie Gutierrez, STUDY: CT ANGIO ABDOMEN PELVIS W AND/OR WO IV IV CONTRAST; 06/30/2023 10:56 am INDICATION: Signs/Symptoms:Carmela ac disease; COMPARISON: 06/29/2023 ACCESSION NUMBER(S): [id number] ORDERING CLINICIAN: TIFFANIE MENDEZ TECHNIQUE: Contiguous axial [...] Signs/Symptoms:Carmela ac disease; COMPARISON: 06/29/2023 ACCESSION NUMBER(S): [id number] ORDERING CLINICIAN: TIFFANIE MENDEZ TECHNIQUE: Contiguous axial [...] Audie Gutierrez 06/30/2023 12:06 PM Dictation workstation: [id number] [facility] Work Phone: Radiology Study observation (narrative) [facility] Work Phone: CTA Abdominal vessels and Pe lvis vessels WO and W contrast IVOrdered By: Audie Gutierrez on 06-30-2023 [facility] Work Phone: Comprehensive metabolic 2000 panelOrdered By: Cristina Blevins on 06-30-2023 Albumin [Mass/Vol] 3.8 g/dL 3.5 - 5.0 g/dL [facility] ALP (Bld) [Catalytic activity/Vol] 51 U/L 35 - 125 U/L [facility] ALT [Catalytic activity/Vol] 35 U/L 5 - 40 U/L [facility] Anion gap [Moles/Vol] 13 mmol/L NINF - 19 mmol/L [facility] AST [Catalytic activity/Vol] 52 U/L High 5 - 40 U/L [facility] Bilirubin [Mass/Vol] mg/dL 0.1 - 1.2 mg/dL [facility] Calcium [Mass/Vol] 9.1 mg/dL 8.5 - 10.4 mg/dL [facility] Chloride [Moles/Vol] 90 mmol/L Low 97 - 107 mmol/L [facility] CO2 [Moles/Vol] 19 mmol/L Low 24 - 31 mmol/L [facility] Creatinine [Mass/Vol] 0.70 mg/dL 0.40 - 1.60 mg/dL [facility] eGFR - PINF [facility] Comment on above: Calculations of jessica mated GFR are performed using the 2020 CKD-EPI Study Refit equation without the race variable for the IDMS-Traceable creatinine methods. https://jasn.asnjournals.org/content//ASN.72261603 88 Glucose [Mass/Vol] 920 mg/dL Critically high 65 - 99 mg/d L [facility] Comment on above: Result rechecked Possible IV contamination. Results do not correlate with previous and post results. Patient was redraw . Interpretation and review of laboratory results Abnormal [facility] Potassium [Moles/Vol] 6.8 mmol/L Critically high 3.4 - 5.1 mmol/L [facility] Comment on above: Result rechecked Possible IV contamination. Results do not correlate with previus and post results. Patient was redrawn. Protein [Mass/Vol] 6.3 g/dL 5.9 - 7.9 g/dL [facility] Sodium [Moles/Vol] 122 mmol/L Low 133 - 145 mmol/L [facility] Comment on above: Result rechecked Urea nitrogen [Mass/Vol] 15 mg/dL 8 - 25 mg/dL [facility] Comprehensive metabolic 2000 panelon 06-30-2023 Albumin [Mass/Vol] 3.8 g/dL 3.5 - 5.0 g/dL [facility] ALP (Bld) [Catalytic activity/Vol] 52 U/L 35 - 125 U/L [facility] ALT [Catalytic activity/Vol] 34 U/L 5 - 40 U/L [facility] Anion gap [Moles/Vol] 10 mmol/L NINF - 19 mmol/L [facility] AST [Catalytic activity/Vol] 43 U/L High 5 - 40 U/L [facility] Bilirubin [Mass/Vol] 0.3 mg/dL 0.1 - 1.2 mg/dL [facility] Calcium [Mass/Vol] 8.8 mg/dL 8.5 - 10.4 mg/dL [facility] Chloride [Moles/Vol] 104 mmol/L 97 - 107 mmol/L [facility] CO2 [Moles/Vol] 23 mmol/L Low 24 - 31 mmol/L [facility] Creatinine [Mass/Vol] 0.60 mg/dL 0.40 - 1.60 mg/dL [facility] eGFR - PINF [facility] Comment on above: Calculations of jessica mated GFR are performed using the 2020 CKD-EPI Study Refit equation without the race variable for the IDMS-Traceable creatinine methods. https://jasn.asnjournals.org/content//ASN.25308284 88 Glucose [Mass/Vol] 136 mg/dL High 65 - 99 mg/dL [facility] Interpretation and review of laboratory results Abnormal [facility] Potassium [Moles/Vol] 3.9 mmol/L 3.4 - 5.1 mmol/L [facility] Protein [Mass/Vol] 6.3 g/dL 5.9 - 7.9 g/dL [facility] Sodium [Moles/Vol] 137 mmol/L 133 - 145 mmol/L [facility] Urea nitrogen [Mass/Vol] 14 mg/dL 8 - 25 mg/dL [facility] Albumin [Mass/Vol] 3.8 g/dL Normal 3.5-5.[address] [facility] Comment on above: Performed By: #### 2 4323-8 ####MELISA Galvan ([id number])[facility] ()[address] [place] [address] ALP (Bld) [Catalytic activity/Vol] 52 U/L Normal 35-125 [facility] Comment on above: Performed By: #### 2 4323-8 ####MELISA Galvan (10459)[facility] ()[address] [place] [address] ALT [Catalytic activity/Vol] 34 U/L Normal 5-40 [facility] Comment on above: Performed By: #### 2 4323-8 ####MELISA Galvan ([id number])[facility] ()[address] [place] [address] Anion gap [Moles/Vol] 10 mmol/L Normal <=19 [facility] Comment on above: Performed By: #### 2 4323-8 ####MELISA Galvan ([id number])[facility] ()[address] [place] [address] AST [Catalytic activity/Vol] 43 U/L High 5-40 [facility] Comment on above: Performed By: #### 2 432-8 ####MELISA Galvan ()[facility] ()[address] [place] [address] Bilirubin [Mass/Vol] 0.3 mg/dL Normal 0.1-1.2 [facility] Comment on above: Performed By: #### 2 432-8 ####MELISA Galvan ()[facility] ()[address] [place] [address] Calcium [Mass/Vol] 8.8 mg/dL Normal 8.5-10.[address] [facility] Comment on above: Performed By: #### 2 432-8 ####MELISA Galvan ([id number])[facility] ()[address] [place] [address] Chloride [Moles/Vol] 104 mmol/L Normal 97-107 [facility] Comment on above: Performed By: #### 2 432-8 ####MELISA Galvan ()[facility] ()[address] [place] [address] CO2 [Moles/Vol] 23 mmol/L Low 24-31 [facility] Comment on above: Performed By: #### 2 432-8 ####MELISA Galvan ([id number])[facility] ()[address] [place] [address] Creatinine [Mass/Vol] 0.60 mg/dL Normal 0.40-1.60 [facility] Comment on above: Performed By: #### 2 432-8 ####MELISA Galvan (03426)[facility] ()[address] [place] [address] GFR/1.73 sq M.predicted MDRD (S/P/Bld) [Vol rate/Area] mL/min/{1.73_m2} Normal >60 [facility] Comment on above: Result Comment: Calc ulations of estimated GFR are performed using the 2020 CKD-EPI Study Refit equation without the race variable for the IDMS-Traceable creatinine methods. https://jasn.asnjournals.org/content//ASN.35998143 88 Performed By: #### 2 4323-8 ####MELISA Galvan (97960)[facility] ()[address] [place] [address] Glucose [Mass/Vol] 136 mg/dL High 65-[address] [facility] Comment on above: Performed By: #### 2 4323-8 ####MELISA Galvan ([id number])[facility] ()[address] [place] [address] Potassium [Moles/Vol] 3.9 mmol/L Normal 3.4-5.1 [facility] Comment on above: Performed By: #### 2 4323-8 ####MELISA Galvan ([id number])[facility] ()[address] [place] [address] Protein [Mass/Vol] 6.3 g/dL Normal 5.9-7.[address] [facility] Comment on above: Performed By: #### 2 4323-8 ####MELISA Galvan (51852)[facility] ()[address] [place] [address] Sodium [Moles/Vol] 137 mmol/L Normal 133-[address] [facility] Comment on above: Performed By: #### 2 4323-8 ####MELISA Galvan ([id number])[facility] ()[address] [place] [address] Urea nitrogen [Mass/Vol] 14 mg/dL Normal 8-25 [facility] Comment on above: Performed By: #### 2 4323-8 ####MELISA Galvan ([id number])[facility] ()[address] [facility]ST[facility] [place] [address] Extra Urine [place] Tubeon 06-15 Extra Tube Hold for add-ons. [facility] Comment on above: Auto resulted. [facility] Glucose Test strip manual (B ld) [Mass/Vol]on 06-30-2023 Glucose [Mass/Vol] 117 mg/dL High 74 - 99 mg/dL [facility] Interpretation and review of laboratory results Abnormal [facility] Glucose [Mass/Vol] 117 mg/dL High 74-[address] [facility] Comment on above: Performed By: #### 2 341-6 ####MELISA Galvan (49299)[facility] ()[address] [place] [address] Glucose [Mass/Vol] 77 mg/dL 74 - 99 mg/dL [facility] Interpretation and review of laboratory results Normal [facility] Glucose [Mass/Vol] 77 mg/dL Normal 74-[address] [facility] Comment on above: Performed By: #### 2 341-6 ####MELISA Galvan ([id number])[facility] ()[address] [facility] [place] [address] HCG ( test) IA.rapi d Ql (U)Ordered By: Agustin Cedillo on 06-30-2023 HCG ( test) Ql (U) Negative NEGATIVE [facility] Interpretation and review of laboratory results Normal [facility] HCG ( test) IA.rapi d Ql (U)on 06-30-2023 HCG ( test) Ql (U) Negative Normal NEGATIVE [facility] Comment on above: Performed By: #### 8 0384-1 ####MELISA Galvan (23087)[facility] ()[address] AVbMobilizedST[address] ANTHON[facility] [place] [place] [address] Magnesiumon 06-30-2023 Magnesium [Mass/Vol] 1.90 mg/dL 1.60 - 3.10 mg/dL [facility] Magnesium [Mass/Vol] 1.90 mg/dL Normal 1.60-3.10 [facility] Comment on above: Performed By: #### 1 9123-9 ####MELISA Galvan ([id number])[facility] ()[address] [place] [address] No Panel Informationon 06-29 Interpretation and review of laboratory results Normal [facility] Phosphateon 06-30-2023 Phosphate [Mass/Vol] 4.4 mg/dL Normal 2.5-4.5 [facility] Comment on above: Performed By: #### 2 777-1 ####MELISA Galvan ([id number])[facility] ()[address] [facility] [place] [address] Phosphoruson 06-30-2023 Phosphate [Mass/Vol] 4.4 mg/dL 2.5 - 4.5 mg/dL [facility] Urinalysis complete W Reflex Culture panel (U)on 06-30-2023 Appearance (U) Clear Clear [facility] Bilirubin (U) [Mass/Vol] Negative NEGATIVE [facility] Color (U) Light-Yellow Light-Yellow, Yellow, Dark-Yellow [facility] Glucose Auto test strip (U) [Mass/Vol] Normal Normal mg/dL [facility] Interpretation and review of laboratory results Normal [facility] Ketones (U) [Mass/Vol] Negative NEGATIVE mg/dL [facility] Leukocyte esterase Auto test strip Ql (U) Negative NEGATIVE [facility] Nitrite Auto test strip Ql (U) Negative NEGATIVE [facility] pH (U) 6.0 [pH] 5.0, 5.5, 6.0, 6.5, 7.0, 7.5, 8.0 [facility] Protein (U) [Mass/Vol] Negative NEGATIVE, 10 (TRACE), 20 (TRACE) mg/dL [facility] RBC (U) [#/Vol] Negative NEGATIVE [facility] Specific gravity (U) [Rel density] 1.023 1.005 - 1.035 [facility] Urobilinogen (U) [Mass/Vol] Normal Normal mg/dL [facility] Appearance (U) Clear Normal Clear [facility] Comment on above: Performed By: #### 5 8077-9 ####MELISA Galvan ([id number])[facility] ()[address] [place] [address] Bilirubin (U) [Mass/Vol] Negative Normal NEGATIVE [facility] Comment on above: Performed By: #### 5 8077-9 ####MELISA Galvan ([id number])[facility] ()[address] [place] [address] Color (U) Light-Yellow Normal Light-Yellow, Yellow, Dark-Yellow [facility] Comment on above: Performed By: #### 5 8077-9 ####MELISA Galvan (20900)[facility] ()[address] [place] [address] Glucose Auto test strip (U) [Mass/Vol] Normal Normal Normal [facility] Comment on above: Performed By: #### 5 8077-9 ####MELISA Galvan ([id number])[facility] ()[address] [place] [address] Ketones (U) [Mass/Vol] Negative Normal NEGATIVE [facility] Comment on above: Performed By: #### 5 8077-9 ####MELISA Galvan ([id number])[facility] ()[address] [place] [address] Leukocyte esterase Auto test strip Ql (U) Negative Normal NEGATIVE [facility] Comment on above: Performed By: #### 5 8077-9 ####MELISA Galvan (47779)[facility] ()[address] [place] [address] Nitrite Auto test strip Ql (U) Negative Normal NEGATIVE [facility] Comment on above: Performed By: #### 5 8077-9 ####MELISA Galvan ([id number])[facility] ()[address] [place] [address] pH (U) 6.0 [pH] Normal 5.0, 5.5, 6.0, 6.5, 7.0, 7.5, 8.0 [facility] Comment on above: Performed By: #### 5 8077-9 ####MELISA Galvan ([id number])[facility] ()[address] [place] [address] Protein (U) [Mass/Vol] Negative Normal NEGATIVE, 10 (TRACE), 20 (TRACE) [facility] Comment on above: Performed By: #### 5 8077-9 ####EMLISA Galvan ([id number])[facility] ()[address] [place] [address] RBC (U) [#/Vol] Negative Normal NEGATIVE [facility] Comment on above: Performed By: #### 5 8077-9 ####MELISA Galvan (85303)[facility] ()[address] [place] [address] Specific gravity (U) [Rel density] 1.023 Normal 1.005-1.035 [facility] Comment on above: Performed By: #### 5 8077-9 ####MELISA Galvan ([id number])[facility] ()[address] [place] [address] Urobilinogen (U) [Mass/Vol] Normal Normal Normal [facility] Comment on above: Performed By: #### 5 8077-9 ####MELISA Galvan ([id number])[facility] ()[address] [place] [address] VASC US MESENTERIC ARTERY DU PLEX COMPLETEon 06-30-2023 VASC US MESENTERIC ARTERY DUPLEX COMPLETE [facility] [address] [place] [address] Vascular Lab Report VASC US MESENTERIC ARTERY DUPLEX COMPLETE Patient Name: ABBEY GARCIA [place] Physician: [id number] Sherry Magaña MD Study Date: 06/30/2023 Ordering Provider: [id number] JAMIL GAVIN MRN/PID: [id number] Fellow: Technologist: Leia Degroot RVMary Jane Date of /Age: 2 1990 / 33 years Technologist 2: Gender: F Admission Status: Inpatient Location Performed: [facility] 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 Report Amended Report Amended By: [id number] Magaña MD Date and Time: 06/30/2023 at [...] PSV 89 cm/s KEELY PSV 105 cm/s [id number] Magaña MD Brandy Magaña MD Electronically Amended 06/30/2023, 12:15 PM Final (Amended) [facility] US mesenteric arter y duplex completeon 06-30-2023 Radiology Study observation (narrative) [facility] Work Phone: Basic metabolic 2000 panelon 06-29-2023 Anion gap [Moles/Vol] 12 mmol/L NINF - 19 mmol/L [facility] Calcium [Mass/Vol] 8.6 mg/dL 8.5 - 10.4 mg/dL [facility] Chloride [Moles/Vol] 105 mmol/L 97 - 107 mmol/L [facility] CO2 [Moles/Vol] 21 mmol/L Low 24 - 31 mmol/L [facility] Creatinine [Mass/Vol] 0.60 mg/dL 0.40 - 1.60 mg/dL [facility] eGFR - PINF [facility] Comment on above: Calculations of jessica mated GFR are performed using the 2020 CKD-EPI Study Refit equation without the race variable for the IDMS-Traceable creatinine methods. https://jasn.asnjournals.org/content//ASN.39718808 88 Glucose [Mass/Vol] 106 mg/dL High 65 - 99 mg/dL [facility] Interpretation and review of laboratory results Abnormal [facility] Potassium [Moles/Vol] 3.9 mmol/L 3.4 - 5.1 mmol/L [facility] Sodium [Moles/Vol] 138 mmol/L 133 - 145 mmol/L [facility] Urea nitrogen [Mass/Vol] 16 mg/dL 8 - 25 mg/dL [facility] Anion gap [Moles/Vol] 12 mmol/L Normal <=19 [facility] Comment on above: Performed By: #### V ERAB #### MELISA Galvan ([id number]) [facility] ([facility]) [id number] [place], [place] [id number] [place] Calcium [Mass/Vol] 8.6 mg/dL Normal 8.5-10.[address] [facility] [facility] Comment on above: Performed By: #### Beth ERAB #### MELISA Galvan ([id number]) [facility] ([facility]) [id number] [place] [address] [place] Chloride [Moles/Vol] 105 mmol/L Normal 97-107 [facility] Comment on above: Performed By: #### V ERAB #### MELISA Galvan ([id number]) [facility] ([facility]) [address] [place] [address] [place] CO2 [Moles/Vol] 21 mmol/L Low 24-31 [facility] Comment on above: Performed By: #### V ERAB #### MELISA Galvan ([id number]) [facility] ([facility]) [address] [place] [address] [place] Creatinine [Mass/Vol] 0.60 mg/dL Normal 0.40-1.60 [facility] Comment on above: Performed By: #### V ERAB #### MELISA Galvan ([id number]) [facility] ([facility]) [address] [place] [address] [place] GFR/1.73 sq M.predicted MDRD (S/P/Bld) [Vol rate/Area] mL/min/{1.73_m2} Normal >60 [facility] Comment on above: Result Comment: Calc ulations of estimated GFR are performed using the 2020 CKD-EPI Study Refit equation without the race variable for the IDMS-Traceable creatinine methods. https://jasn.asnjournals.org/content//ASN.81135585 88 Performed By: #### V ERAB #### MELISA Galvan ([id number]) [facility] ([facility]) [address] [place] [address] [place] Glucose [Mass/Vol] 106 mg/dL High 65-[address] [facility] Comment on above: Performed By: #### V ERAB #### MELISA Galvan ([id number]) [facility] ([facility]) [address] [place] [address] [place] Potassium [Moles/Vol] 3.9 mmol/L Normal 3.4-5.1 [facility] Comment on above: Performed By: #### V ERAB #### MELISA Galvan ([id number]) [facility] ([facility]) [address] [place] [address] [place] Sodium [Moles/Vol] 138 mmol/L Normal 133-[address] [facility] Comment on above: Performed By: #### V ERAB #### MELISA POOLESarwat Galvan ([id number]) [facility] ([facility]) [id number] [place] [address] [place] Urea nitrogen [Mass/Vol] 16 mg/dL Normal 8-25 [facility] Comment on above: Performed By: #### V ERAB #### MELISA ALEXANDRO J ([id number]) [facility] ([facility]) [id number] [place] [address] [place] CBC W Auto Differential pane l (Bld)on 06-29-2023 Basophils (Bld) [#/Vol] 0.03 10*3/uL [facility] Basophils/100 WBC (Bld) 0.6 % 0.0 - 2.0 % [facility] Eosinophils (Bld) [#/Vol] 0.01 10*3/uL [facility] Eosinophils/100 WBC (Bld) 0.2 % 0.0 - 6.0 % [facility] Erythrocyte distribution width (RBC) [Ratio] 13.8 % 11.5 - 14.5 % [facility] Hematocrit (Bld) [Volume fraction] 32.2 % Low 36.0 - 46.0 % [facility] Hemoglobin (Bld) [Mass/Vol] 10.3 g/dL Low 12.0 - 16.0 g/dL [facility] Immature granulocytes (Bld) [#/Vol] 0.01 10*3/uL [facility] Immature granulocytes/100 WBC (Bld) 0.2 % 0.0 - 0.9 % [facility] Comment on above: Immature Granulocyte Count (IG) includes promyelocytes, myelocytes and metamyelocytes but does not include bands. Percent differential counts (%) should be interpreted in the context of the absolute cell counts (cells/UL). Interpretation and review of laboratory results Abnormal [facility] Lymphocytes (Bld) [#/Vol] 1.15 10*3/uL Low [facility] Lymphocytes/100 WBC (Bld) 23.1 % 13.0 - 44.0 % [facility] MCH (RBC) [Entitic mass] 31.2 pg 26.0 - 34.0 pg [facility] MCHC (RBC) [Mass/Vol] 32.0 g/dL 32.0 - 36.0 g/dL [facility] MCV (RBC) [Entitic vol] 98 fL 80 - 100 fL [facility] Monocytes (Bld) [#/Vol] 0.20 10*3/uL [facility] Monocytes/100 WBC (Bld) 4.0 % 2.0 - 10.0 % [facility] Neutrophils (Bld) [#/Vol] 3.57 10*3/uL [facility] Comment on above: Percent differential counts (%) should be interpreted in the context of the absolute cell counts (cells/uL). Neutrophils/100 WBC (Bld) 71.9 % 40.0 - 80.0 % [facility] Nucleated RBC/100 WBC (Bld) [Ratio] 0.0 % [facility] Platelets (Bld) [#/Vol] 231 10*3/uL [facility] RBC (Bld) [#/Vol] 3.30 10*6/uL Low [facility] WBC (Bld) [#/Vol] 5.0 10*3/uL [facility] Basophils (Bld) [#/Vol] 0.03 x10*3/uL Normal 0.00-0.10 [facility] Comment on above: Performed By: #### V ERAB #### MELISA Galvan ([id number]) [facility] ([facility]) [address] [place] [address] [place] Basophils/100 WBC (Bld) 0.6 % Normal 0.0-2.0 [facility] Comment on above: Performed By: #### V ERAB #### MELISA Galvan ([id number]) [facility] ([facility]) [address] [place] [address] US Eosinophils (Bld) [#/Vol] 0.01 x10*3/uL Normal 0.00-0.70 [facility] Comment on above: Performed By: #### V ERAB #### MELISA Galvan ([id number]) [facility] ([facility]) [address] [place] [address] [place] Eosinophils/100 WBC (Bld) 0.2 % Normal 0.0-6.0 [facility] Comment on above: Performed By: #### V ERAB #### MELISA Galvan ([id number]) [facility] ([facility]) [address] [place] [address] [place] Erythrocyte distribution width (RBC) [Ratio] 13.8 % Normal 11.5-14.5 [facility] Comment on above: Performed By: #### V ERAB #### MELISA Galvan ([id number]) [facility] ([facility]) [address] [place] [address] [place] Hematocrit (Bld) [Volume fraction] 32.2 % Low 36.0-46.0 [facility] Comment on above: Performed By: #### V ERAB #### MELISA Galvan ([id number]) [facility] ([facility]) [address] [place] [address] [place] Hemoglobin (Bld) [Mass/Vol] 10.3 g/dL Low 12.0-16.0 [facility] Comment on above: Performed By: #### V ERAB #### MELISA Galvan ([id number]) [facility] ([facility]) [address] [place] [address] [place] Immature granulocytes (Bld) [#/Vol] 0.01 x10*3/uL Normal 0.00-0.70 [facility] Comment on above: Performed By: #### V ERAB #### MELISA Galvan ([id number]) [facility] ([facility]) [address] [place] [address] [place] Immature granulocytes/100 WBC (Bld) 0.2 % Normal 0.0-0.9 [facility] Comment on above: Result Comment: Janny ture Granulocyte Count (IG) includes promyelocytes, myelocytes and metamyelocytes but does not include bands. Percent differential counts (%) should be interpreted in the context of the absolute cell counts (cells/UL). Performed By: #### V ERAB #### MELISA Galvan ([id number]) [facility] ([facility]) [address] [place] [address] [place] Lymphocytes (Bld) [#/Vol] 1.15 x10*3/uL Low 1.20-4.80 [facility] Comment on above: Performed By: #### V ERAB #### MELISA Galvan () [facility] ([facility]) [address] [place] [address] US Lymphocytes/100 WBC (Bld) 23.1 % Normal 13.0-44.0 [facility] Comment on above: Performed By: #### V ERAB #### MELISA Galvan () [facility] ([facility]) [address] [place] [address] US MCH (RBC) [Entitic mass] 31.2 pg Normal 26.0-34.0 [facility] Comment on above: Performed By: #### V ERAB #### MELISA Galvan () [facility] ([facility]) [address] [place] [address] US MCHC (RBC) [Mass/Vol] 32.0 g/dL Normal 32.0-36.0 [facility] Comment on above: Performed By: #### V ERAB #### MELISA Galvan () [facility] ([facility]) [address] [place] [address] US MCV (RBC) [Entitic vol] 98 fL Normal 80-100 [facility] Comment on above: Performed By: #### V ERAB #### MELISA Galvan () [facility] ([facility]) [address] [place] [address] [place] Monocytes (Bld) [#/Vol] 0.20 x10*3/uL Normal 0.10-1.00 [facility] Comment on above: Performed By: #### V ERAB #### MELISA Galvan () [facility] ([facility]) [address] [place] [address] US Monocytes/100 WBC (Bld) 4.0 % Normal 2.0-10.0 [facility] Comment on above: Performed By: #### V ERAB #### MELISA Galvan ([id number]) [facility] ([employer]) [address] [place] [address] US Neutrophils (Bld) [#/Vol] 3.57 x10*3/uL Normal 1.20-7.70 [facility] Comment on above: Result Comment: Perc ent differential counts (%) should be interpreted in the context of the absolute cell counts (cells/uL). Performed By: #### V ERAB #### MELISA Galvan ([id number]) [facility] ([employer]) [address] [place] [address] [place] Neutrophils/100 WBC (Bld) 71.9 % Normal 40.0-80.0 [facility] Comment on above: Performed By: #### V ERAB #### MELISA Galvan ([id number]) [facility] ([employer]) [address] [place] [address] [place] Nucleated RBC/100 WBC (Bld) [Ratio] 0.0 /100 WBCs Normal 0.0-0.0 [facility] Comment on above: Performed By: #### V ERAB #### MELISA Galvan ([id number]) [facility] ([employer]) [address] [place] [address] [place] Platelets (Bld) [#/Vol] 231 x10*3/uL Normal 150-450 [facility] Comment on above: Performed By: #### V ERAB #### MELISA Galvan ([id number]) [facility] ([facility]) [address] [place] [address] [place] RBC (Bld) [#/Vol] 3.30 x10*6/uL Low 4.00-5.20 [facility] Comment on above: Performed By: #### V ERAB #### MELISA Galvan ([id number]) [facility] ([facility]) [address] [place] [address] US WBC (Bld) [#/Vol] 5.0 x10*3/uL Normal 4.4-11.3 [facility] Comment on above: Performed By: #### V ERAB #### MELISA Galvan () [facility] ([facility]) [id number] [place] [address] [place] CBC panel Auto (Bld)on 06-28 Erythrocyte distribution width (RBC) [Ratio] 13.7 % 11.5 - 14.5 % [facility] Hematocrit (Bld) [Volume fraction] 32.7 % Low 36.0 - 46.0 % [facility] Hemoglobin (Bld) [Mass/Vol] 11.0 g/dL Low 12.0 - 16.0 g/dL [facility] Interpretation and review of laboratory results Abnormal [facility] MCH (RBC) [Entitic mass] 30.7 pg 26.0 - 34.0 pg [facility] MCHC (RBC) [Mass/Vol] 33.6 g/dL 32.0 - 36.0 g/dL [facility] MCV (RBC) [Entitic vol] 91 fL 80 - 100 fL [facility] Nucleated RBC/100 WBC (Bld) [Ratio] 0.0 % [facility] Platelets (Bld) [#/Vol] 246 10*3/uL [facility] RBC (Bld) [#/Vol] 3.58 10*6/uL Low [facility] WBC (Bld) [#/Vol] 5.2 10*3/uL [facility] Erythrocyte distribution width (RBC) [Ratio] 13.7 % Normal 11.5-14.5 [facility] Comment on above: Performed By: #### V ERAB #### MELISA Galvan () [facility] ([facility]) [address] [place], [place] [id number] [place] Hematocrit (Bld) [Volume fraction] 32.7 % Low 36.0-46.0 [facility] Comment on above: Performed By: #### V ERAB #### MELISA Galvan () [facility] ([facility]) [address] [place] [address] [place] [address] US Hemoglobin (Bld) [Mass/Vol] 11.0 g/dL Low 12.0-16.0 [facility] Comment on above: Performed By: #### V ERAB #### MELISA aGlvan () [facility] ([facility]) [address] [place] [address] US MCH (RBC) [Entitic mass] 30.7 pg Normal 26.0-34.0 [facility] Comment on above: Performed By: #### V ERAB #### MELISA Galvan () [facility] ([facility]) [address] [place] [address] US MCHC (RBC) [Mass/Vol] 33.6 g/dL Normal 32.0-36.0 [facility] Comment on above: Performed By: #### V ERAB #### MELISA Galvan () [facility] ([facility]) [address] [place] [address] US MCV (RBC) [Entitic vol] 91 fL Normal 80-100 [facility] Comment on above: Performed By: #### V ERAB #### MELISA Galvan () [facility] ([facility]) [address] [place] [address] US Nucleated RBC/100 WBC (Bld) [Ratio] 0.0 /100 WBCs Normal 0.0-0.0 [facility] Comment on above: Performed By: #### V ERAB #### MELISA Galvan () [facility] ([facility]) [address] [place] [address] US Platelets (Bld) [#/Vol] 246 x10*3/uL Normal 150-450 [facility] Comment on above: Performed By: #### V ERAB #### MELISA Galvan () [facility] ([facility]) [address] [place] [address] US RBC (Bld) [#/Vol] 3.58 x10*6/uL Low 4.00-5.20 [facility] Comment on above: Performed By: #### V ERAB #### MELISA Galvan ([id number]) [facility] ([facility]) [address] [place] [address] US WBC (Bld) [#/Vol] 5.2 x10*3/uL Normal 4.4-11.3 [facility] Comment on above: Performed By: #### V ERAB #### MELISA Galvan ([id number]) [facility] ([facility]) [address] [place] [address] ABDOMEN PELVIS WO IV CONT [facility] 06-29-2023 CT ABDOMEN PELVIS WO IV CONTRAST Interpreted By: Fly West, STUDY: CT ABDOMEN PELVIS WO IV CONTRAST; 06/29/2023 11:09 pm INDICATION: Signs/Symptoms:Abdo kerry pain. COMPARISON: 03/16/2023 ACCESSION NUMBER(S): [id number] ORDERING CLINICIAN: DAVID VALADEZ TECHNIQUE: Axial CT [...] Fly West 06/29/2023 11:53 PM Dictation workstation: [id number] [facility] CT Abdomen WO contraston 1. No acute abdominal or pelvic process. 2. Numerous hepatic hypodense lesions, incompletely characterize, though likely reflecting cysts. Appearance is similar to 03/16/2023. 3. Postsurgical changes as above. Signed by: Fly West 06/29/2023 11:53 PM Dictation workstation: [id number] Interpreted By: Fly West, STUDY: CT ABDOMEN PELVIS WO IV CONTRAST; 06/29/2023 11:09 pm INDICATION: Signs/Symptoms:Abdo kerry pain. COMPARISON: 03/16/2023 ACCESSION NUMBER(S): [id number] ORDERING CLINICIAN: DAVID VALADEZ TECHNIQUE: Axial CT [...] Signs/Symptoms:Abdo kerry pain. COMPARISON: 03/16/2023 ACCESSION NUMBER(S): [id number] ORDERING CLINICIAN: DAVID VALADEZ TECHNIQUE: Axial CT [...] Fly West 06/29/2023 11:53 PM Dictation workstation: [id number] [facility] Work Phone: Radiology Study observation (narrative) [facility] Work Phone: CT Abdomen WO contrastOrdere d By: Fly West on 06-29-2023 [facility] Work Phone: Comprehensive metabolic 2000 panelon 06-29-2023 Albumin [Mass/Vol] 3.8 g/dL Normal 3.5-5.[address] [facility] Comment on above: Performed By: #### V ERAB #### MELISA Galvan () [facility] ([facility] [address] [place] [address] US ALP (Bld) [Catalytic activity/Vol] 51 U/L Normal 35-125 [facility] Comment on above: Performed By: #### V ERAB #### MELISA Galvan () [facility] ([facility] [address] [place] [address] US ALT [Catalytic activity/Vol] 35 U/L Normal 5-40 [facility] Comment on above: Performed By: #### V ERAB #### MELISA Galvan () [facility] ([facility]) [address] [place] [address] US Anion gap [Moles/Vol] 13 mmol/L Normal <=19 [facility] Comment on above: Performed By: #### V ERAB #### MELISA Galvan () [facility] ([facility]) [address] [place] [address] US AST [Catalytic activity/Vol] 52 U/L High 5-40 [facility] Comment on above: Performed By: #### V ERAB #### MELISA Galvan () [facility] ([facility]) [address] [place] [address] US Bilirubin [Mass/Vol] mg/dL Normal 0.1-1.2 [facility] Comment on above: Performed By: #### V ERAB #### MELISA Galvan () [facility] ([facility]) [address] [place] [address] US Calcium [Mass/Vol] 9.1 mg/dL Normal 8.5-10.[address] [facility] Comment on above: Performed By: #### V ERAB #### MELISA Galvan () [facility] ([facility]) [address] [place] [address] US Chloride [Moles/Vol] 90 mmol/L Low 97-107 [facility] Comment on above: Performed By: #### V ERAB #### MELISA Galvan ([id number]) [facility] ([facility]) [address] [place] [address] US CO2 [Moles/Vol] 19 mmol/L Low 24-31 [facility] Comment on above: Performed By: #### V ERAB #### MELISA Galvan ([id number]) [facility] ([facility]) [address] [place] [address] US Creatinine [Mass/Vol] 0.70 mg/dL Normal 0.40-1.60 [facility] Comment on above: Performed By: #### V ERAB #### MELISA Galvan ([id number]) [facility] ([facility]) [address] [place] [address] US GFR/1.73 sq M.predicted MDRD (S/P/Bld) [Vol rate/Area] mL/min/{1.73_m2} Normal >60 [facility] Comment on above: Result Comment: Calc ulations of estimated GFR are performed using the 2020 CKD-EPI Study Refit equation without the race variable for the IDMS-Traceable creatinine methods. https://jasn.asnjournals.org/content//ASN.37948504 88 Performed By: #### V ERAB #### MELISA Galvan ([id number]) [facility] ([facility]) [address] [place] [address] [place] Glucose [Mass/Vol] 920 mg/dL Critically high 65-99 U [facility] Comment on above: Result Comment: Resu lt rechecked Possible IV contamination. Results do not correlate with previous and post results. Patient was redraw . Performed By: #### V ERAB #### MELISA Galvan ([id number]) [facility] ([facility]) [address] [place] [address] [place] Potassium [Moles/Vol] 6.8 mmol/L Critically high 3.4-5.1 [facility] Comment on above: Result Comment: Resu lt rechecked Possible IV contamination. Results do not correlate with previus and post results. Patient was redrawn. Performed By: #### V ERAB #### MELISA Galvan ([id number]) [facility] ([facility]) [address] [place] [address] US Protein [Mass/Vol] 6.3 g/dL Normal 5.9-7.[address] [facility] Comment on above: Performed By: #### V ERAB #### MELISA Galvan ([id number]) [facility] ([facility]) [address] [place] [address] US Sodium [Moles/Vol] 122 mmol/L Low 133-[address] [facility] Comment on above: Result Comment: Resu lt rechecked Performed By: #### V ERAB #### MELISA Galvan ([id number]) [facility] ([facility]) [address] [place] [address] [place] Urea nitrogen [Mass/Vol] 15 mg/dL Normal 8-25 [facility] Comment on above: Performed By: #### V ERAB #### MELISA Galvan ([id number]) [facility] ([facility]) [id number] [place] [address] [place] Glucose Test strip manual (B ld) [Mass/Vol]on 06-29-2023 Glucose [Mass/Vol] 117 mg/dL High 74 - 99 mg/dL [facility] Interpretation and review of laboratory results Abnormal [facility] Glucose [Mass/Vol] 117 mg/dL High 74-[address] [facility] Comment on above: Performed By: #### V ERAB #### MELISA Galvan ([id number]) [facility] ([facility]) [address] [place] [address] [place] [facility] Record[facility] 2023 Home Health Records [id number] 8#1.00TIFF [facility] Auth for Release of Medical Recordson 06-23-2023 Auth for Release of Medical Records [id number] B#1.00TIFF Normal [facility] ED Note-Physicianon 06-23-19 24 ED Note-Physician [id number] D5#1.00TIFF [facility] ED Note-Physicianon 06-22-19 24 ED Note-Physician [id number] 906#1.00TIFF Normal [facility] ED Note-Physician [id number] 15#1.00TIFF [facility] Lab Reportson 06-22-2023 Lab Reports [id number] 447#1.00TIFF [facility] Provider Letteron 06-22-2023 Provider Letter [facility] RAD - CT Reporton 06-22-[address] RAD - CT Report [id number] 594#1.00TIFF [facility] Home Health Recordson 2023 Home Health Records [id number] 00#1.00TIFF [facility] ALLIED HEALTHon 06-18-2023 ALLIED HEALTH Normal [facility] CBC W Auto Differential pane l (Bld)on 06-18-2023 Basophils (Bld) [#/Vol] 0.04 10*3/uL Normal <0.11 [facility] Comment on above: Order Comment: Speci men Type: BLOOD SPECIMENOrdering Facility: [facility] Address: [address] [place] [address] Performed By: #### 5 7021-8 ####[facility]ATORYCLIA [id number] [place] [address] [place] Basophils/100 WBC (Bld) 0.8 % Normal [facility] Comment on above: Order Comment: Speci men Type: BLOOD SPECIMENOrdering Facility: [facility] Address: [address] [place] [address] Performed By: #### 5 7021-8 ####[facility] LABORATORYCLIA [id number] [place] [id number] [place] Differential cell count method Nom (Bld) Auto Normal [facility] Comment on above: Order Comment: Speci men Type: BLOOD SPECIMENOrdering Facility: [facility] Address: [address] [place] [address] Performed By: #### 5 7021-8 ####[facility] LABORATORYCLIA [id number] [place] [address] [place] Eosinophils (Bld) [#/Vol] 0.13 10*3/uL Normal <0.46 [facility] Comment on above: Order Comment: Speci men Type: BLOOD SPECIMENOrdering Facility: [facility] Address: [address] [place] [address] Performed By: #### 5 7021-8 ####[facility] LABORATORYCLIA [id number] [place] [address] [place] Eosinophils/100 WBC (Bld) 2.8 % Normal [facility] Comment on above: Order Comment: Speci men Type: BLOOD SPECIMENOrdering Facility: [facility] Address: [address] [place] [address] Performed By: #### 5 7021-8 ####[facility] LABORATORYCLIA [id number] [address] [place] Erythrocyte distribution width (RBC) [Ratio] 13.3 % Normal 11.5-15.0 [facility] Comment on above: Order Comment: Speci men Type: BLOOD SPECIMENOrdering Facility: [facility] Address: [address] [place] [address] Performed By: #### 5 7021-8 ####[facility] LABORATORYCLIA [id number] [place] [id number] [place] Hematocrit (Bld) [Volume fraction] 34.6 % Low 36.0-46.0 [facility] Comment on above: Order Comment: Speci men Type: BLOOD SPECIMENOrdering Facility: [facility] Address: [address] [place] [address] Performed By: #### 5 7021-8 ####[facility] LABORATORYCLIA [id number] [place] [address] [place] Hemoglobin (Bld) [Mass/Vol] 12.0 g/dL Normal 11.5-15.5 [facility] Comment on above: Order Comment: Speci men Type: BLOOD SPECIMENOrdering Facility: [facility] Address: [address] [place] [address] Performed By: #### 5 7021-8 ####OSVALDO LABORATORYCLIA [id number] [place] [address] [place] Immature granulocytes (Bld) [#/Vol] 10*3/uL Normal <0.10 [facility] Comment on above: Order Comment: Speci men Type: BLOOD SPECIMENOrdering Facility: [facility] Address: [address] [place] [address] Performed By: #### 5 7021-8 ####OSVALDO LABORATORYCLIA [id number] [place] [address] [place] Immature granulocytes/100 WBC (Bld) 0.2 % Normal [facility] Comment on above: Order Comment: Speci men Type: BLOOD SPECIMENOrdering Facility: [facility] Address: [address] [place] [address] Performed By: #### 5 7021-8 ####OSVALDO LABORATORYCLIA [id number] [place] [address] [place] Lymphocytes (Bld) [#/Vol] 1.90 10*3/uL Normal 1.00-4.00 [facility] Comment on above: Order Comment: Speci men Type: BLOOD SPECIMENOrdering Facility: [facility] Address: [address] [place] [address] Performed By: #### 5 7021-8 ####[facility] LABORATORYCLIA [id number] [place] [address] [place] Lymphocytes/100 WBC (Bld) 40.3 % Normal [facility] Comment on above: Order Comment: Speci men Type: BLOOD SPECIMENOrdering Facility: [facility] Address: [address] [place] [address] Performed By: #### 5 7021-8 ####[facility] LABORATORYCLIA [id number] [address] [place] [facility] MCH (RBC) [Entitic mass] 30.9 pg Normal 26.0-34.0 [facility] Comment on above: Order Comment: Speci men Type: BLOOD SPECIMENOrdering Facility: [facility] Address: [address] [place] [address] Performed By: #### 5 7021-8 ####[facility] LABORATORYCLIA [id number] [address] STATES [facility] MCHC (RBC) [Mass/Vol] 34.7 g/dL Normal 30.5-36.0 [facility] Comment on above: Order Comment: Speci men Type: BLOOD SPECIMENOrdering Facility: [facility] Address: [address] [place] [address] Performed By: #### 5 7021-8 ####[facility] LABORATORYCLIA [id number] [address] [place] MCV (RBC) [Entitic vol] 89.2 fL Normal 80.0-100.0 [facility] Comment on above: Order Comment: Speci men Type: BLOOD SPECIMENOrdering Facility: [facility] Address: [address] [place] [address] Performed By: #### 5 7021-8 ####[facility] LABORATORYCLIA [id number] [address] Monocytes (Bld) [#/Vol] 0.24 10*3/uL Normal <0.87 [facility] Comment on above: Order Comment: Speci men Type: BLOOD SPECIMENOrdering Facility: [facility] Address: [address] [place] [address] Performed By: #### 5 7021-8 ####[facility]CAT[facility] LABORATORYCLIA [id number] [place] [address] [place] Monocytes/100 WBC (Bld) 5.1 % Normal [facility] Comment on above: Order Comment: Speci men Type: BLOOD SPECIMENOrdering Facility: [facility] Address: [address] [place] [address] Performed By: #### 5 7021-8 ####OSVALDO LABORATORYCLIA [id number] [place] [address] [place] Neutrophils (Bld) [#/Vol] 2.39 10*3/uL Normal 1.45-7.50 [facility] Comment on above: Order Comment: Speci men Type: BLOOD SPECIMENOrdering Facility: [facility] Address: [address] [place] [address] Performed By: #### 5 7021-8 ####OS[facility]DO LABORATORYCLIA [id number] [place] [address] [place] Neutrophils/100 WBC (Bld) 50.8 % Normal [facility] Comment on above: Order Comment: Speci men Type: BLOOD SPECIMENOrdering Facility: [facility] Address: [address] [place] [address] Performed By: #### 5 7021-8 ####OS[facility] LABORATORYCLIA [id number] [place] [address] [place] Nucleated RBC (Bld) [#/Vol] 10*3/uL Normal <0.01 [facility] Comment on above: Order Comment: Speci men Type: BLOOD SPECIMENOrdering Facility: [facility] Address: [address] [place] [address] Performed By: #### 5 7021-8 ####OSVALDO LABORATORYCLIA [id number] [place] [address] [place] Nucleated RBC/100 WBC (Bld) [Ratio] 0.0 /100 WBC Normal [facility] Comment on above: Order Comment: Speci men Type: BLOOD SPECIMENOrdering Facility: [facility] Address: [address] [place] [address] Performed By: #### 5 7021-8 ####OSVALDO LABORATORYCLIA [id number] [place] [address] [place] Platelet mean volume (Bld) [Entitic vol] 11.4 fL Normal 9.0-12.7 [facility] Comment on above: Order Comment: Speci men Type: BLOOD SPECIMENOrdering Facility: [facility] Address: [address] [place] [address] Performed By: #### 5 7021-8 ####[facility] LABORATORYCLIA [id number] [place] [address] [place] Platelets (Bld) [#/Vol] 233 10*3/uL Normal 150-400 [facility] Comment on above: Order Comment: Speci men Type: BLOOD SPECIMENOrdering Facility: [facility] Address: [address] [place] [address] Performed By: #### 5 7021-8 ####[facility] LABORATORYCLIA [id number] [place] [address] [place] RBC (Bld) [#/Vol] 3.88 10*6/uL Low 3.90-5.20 [facility] Comment on above: Order Comment: Speci men Type: BLOOD SPECIMENOrdering Facility: [facility] Address: [address] [place] [address] Performed By: #### 5 7021-8 ####[facility] LABORATORYCLIA [id number] [place] [address] [place] WBC (Bld) [#/Vol] 4.71 10*3/uL Normal 3.70-11.00 [facility] Comment on above: Order Comment: Speci men Type: BLOOD SPECIMENOrdering Facility: [facility] Address: [address] [place] [address] Performed By: #### 5 7021-8 ####[facility] LABORATORYCLIA [id number] [place] [address] [place] CNOVon 06-18-2023 CNOV Normal [facility] CONSULTon 06-18-2023 CONSULT Normal [facility] CT ABD/PEL W IVCONon 024 CT ABD/PEL W IVCON Normal [facility] Comprehensive metabolic 2000 panelon 06-18-2023 Albumin [Mass/Vol] 4.5 g/dL Normal 3.9-4.9 [facility] Comment on above: Order Comment: Speci men Type: BLOOD SPECIMENOrdering Facility: [facility] Address: [address] [place] [address] Performed By: #### 1 9123-9, 3040-3, 20038-0 ####[facility] LABORATORYCLIA [id number] [place] [address] [place] ALP [Catalytic activity/Vol] 58 U/L Normal 34-123 [facility] Comment on above: Order Comment: Speci men Type: BLOOD SPECIMENOrdering Facility: [facility] Address: [address] [place] [address] Performed By: #### 1 9123-9, 3040-3, 69101-2 ####[facility] LABORATORYCLIA [id number] [place] [address] [place] ALT [Catalytic activity/Vol] 13 U/L Normal 7-38 [facility] Comment on above: Order Comment: Speci men Type: BLOOD SPECIMENOrdering Facility: [facility] Address: [address] [place] [address] Performed By: #### 1 9123-9, 3040-3, 48407-7 ####[facility] LABORATORYCLIA [id number] [place] [address] [place] Anion gap [Moles/Vol] 13 mmol/L Normal 9-18 [facility] Comment on above: Order Comment: Speci men Type: BLOOD SPECIMENOrdering Facility: [facility] Address: [address] [place] [address] Performed By: #### 1 9123-9, 3040-3, 04635-3 ####[facility] LABORATORYCLIA [id number] [place] [address] [place] AST [Catalytic activity/Vol] 31 U/L Normal 13-35 [facility] Comment on above: Order Comment: Speci men Type: BLOOD SPECIMENOrdering Facility: [facility] Address: [address] [place] [address] Performed By: #### 1 9123-9, 3040-3, 09313-2 ####[facility] LABORATORYCLIA [id number] [place] [address] [place] Bilirubin [Mass/Vol] 0.4 mg/dL Normal 0.2-1.3 [facility] Comment on above: Order Comment: Speci men Type: BLOOD SPECIMENOrdering Facility: [facility] Address: [address] [place] [address] Performed By: #### 1 9123-9, 3040-3, 82827-8 ####[facility] LABORATORYCLIA [id number] [place] [address] [place] Calcium [Mass/Vol] 9.0 mg/dL Normal 8.5-10.2 [facility] Comment on above: Order Comment: Speci men Type: BLOOD SPECIMENOrdering Facility: [facility] Address: [address] [place] [address] Performed By: #### 1 9123-9, 3039-3, ####[facility] LABORATORYCLIA [id number] [place] [address] [place] Chloride [Moles/Vol] 103 mmol/L Normal 97-105 [facility] Comment on above: Order Comment: Speci men Type: BLOOD SPECIMENOrdering Facility: [facility] Address: [address] [place] [address] Performed By: #### 1 9123-9, 3, ####[facility] LABORATORYCLIA [id number] [place] [address] [place] CO2 [Moles/Vol] 22 mmol/L Normal 22-30 [facility] Comment on above: Order Comment: Speci men Type: BLOOD SPECIMENOrdering Facility: [facility] Address: [address] [place] [address] Performed By: #### 1 9123-9, 0-3, 53929-1 ####[facility] LABORATORYCLIA [id number] [place] [address] [place] Creatinine [Mass/Vol] 0.83 mg/dL Normal 0.58-0.96 [facility] Comment on above: Order Comment: Geraldo marrero Type: BLOOD SPECIMENOrdering Facility: [facility] Address: [address] [place] [address] Performed By: #### 1 9123-9, 3040-3, 70877-8 ####[facility] LABORATORYCLIA [id number] [place] [address] [place] Creatinine and Glomerular filtration rate.predicted panel (S/P/Bld) 95 mL/min/1.73m??? Normal >=60 [facility] Comment on above: Order Comment: Geraldo marrero Type: BLOOD SPECIMENOrdering Facility: [facility] Address: [address] [place] [address] Result Comment: Jessica mated Glomerular Filtration Rate [...] GFR. Performed By: #### 1 9123-9, 0-3, ####[facility] LABORATORYCLIA [id number] [place] [address] [place] Glucose [Mass/Vol] 77 mg/dL Normal 74-99 [facility] Comment on above: Order Comment: Gearldo marrero Type: BLOOD SPECIMENOrdering Facility: [facility] Address: [address] [place] [address] Result Comment: The [place] [employer] (ADA) provides guidance for cutoff [...] Standards of Medical Care in Diabetes 2016, [place] [employer]. Diabetes Care. 2016.39(Suppl 1). Performed By: #### 1 9123-9, 3040-3, 58658-5 ####OSVALDO LABORATORYCLIA [id number] [place] [address] [place] Potassium [Moles/Vol] 3.4 mmol/L Low 3.7-5.1 [facility] Comment on above: Order Comment: Speci men Type: BLOOD SPECIMENOrdering Facility: [facility] Address: [address] [place] [address] Performed By: #### 1 9123-9, 3040-3, 71498-1 ####OS[facility] LABORATORYCLIA [id number] [place] [address] [place] Protein [Mass/Vol] 7.6 g/dL Normal 6.3-8.0 [facility] Comment on above: Order Comment: Speci men Type: BLOOD SPECIMENOrdering Facility: [facility] Address: [address] [place] [address] Performed By: #### 1 9123-9, 0-3, 33465-4 ####OS[facility] LABORATORYCLIA [id number] [place] [address] [place] Sodium [Moles/Vol] 138 mmol/L Normal 136-144 [facility] Comment on above: Order Comment: Speci men Type: BLOOD SPECIMENOrdering Facility: [facility] Address: [address] [place] [address] Performed By: #### 1 9123-9, 3040-3, 03206-1 ####[facility] LABORATORYCLIA [id number] [place] [address] [place] Urea nitrogen [Mass/Vol] 12 mg/dL Normal 7-21 [facility] Comment on above: Order Comment: Speci men Type: BLOOD SPECIMENOrdering Facility: [facility] Address: [address] [place] [id number] Performed By: #### 1 9123-9, 3040-3, 16385-3 ####[facility] LABORATORYCLIA [id number] [place] [address] [place] ECG COMPLETEon 06-18-2023 ECG COMPLETE Normal [facility] ED NOTEon 06-18-2023 ED NOTE Normal [facility] ED NOTE HNO ID: [id number] Author: HIEU HERNANDEZ RN Service: ? Author Type: Registered Nurse Type: ED Notes Filed: 06/18/2023 19:05 Note Text: Patient verbalized understanding of discharge instructions and follow up care. Normal [facility] ED NOTE HNO ID: [id number] Author: HIEU HERNANDEZ RN Service: ? Author Type: Registered Nurse Type: ED Notes Filed: 06/18/2023 18:38 Note Text: Long catheter with leg bag inserted and orange juice given via peg tube given per Earnest INMAN verbal order. [facility] ED PROV NOTEon 06-18-2023 ED PROV NOTE Normal [facility] HCG QUALITATIVEon 06-18-2023 HCG, QUALITATIVE Negative Normal Negative [facility] Comment on above: Order Comment: Speci men Type: BLOOD SPECIMENOrdering Facility: [facility] Address: [address] [place] [address] Performed By: #### H CG ####OS[facility] LABORATORYCLIA [id number] [place] [address] [place] Lipase SerPl-cCncon 06-18-19 24 Lipase [Catalytic activity/Vol] 31 U/L Normal 16-61 [facility] Comment on above: Order Comment: Speci men Type: BLOOD SPECIMENOrdering Facility: [facility] Address: [address] [place] [address] Performed By: #### 1 9123-9, 3040-3, 03554-5 ####OS[facility] LABORATORYCLIA [id number] [place] [address] [place] Magnesium SerPl-mCncon 06-17 Magnesium [Mass/Vol] 2.0 mg/dL Normal 1.7-2.3 [facility] Comment on above: Order Comment: Speci men Type: BLOOD SPECIMENOrdering Facility: [facility] Address: [address] [place] [address] Performed By: #### 1 9123-9, 3040-3, 52944-6 ####[facility] LABORATORYCLIA [id number] [address] Urinalysis complete panel (U )on 06-18-2023 Bacteria LM.HPF (Urine sed) [#/Area] Rare Abnormal None Seen [facility] Comment on above: Order Comment: Speci men Type: URINE SPECIMENOrdering Facility: [facility] Address: [address] [place] [address] Performed By: #### 2 4356-8 ####[facility] LABORATORYCLIA [id number] [place] [address] [place] Bilirubin Ql (U) Negative Normal Negative [facility] Comment on above: Order Comment: Speci men Type: URINE SPECIMENOrdering Facility: [facility] Address: [address] [place] [address] Performed By: #### 2 4356-8 ####[facility] LABORATORYCLIA [id number] [address] [place] Clarity (Unsp spec) Clear Normal Clear [facility] Comment on above: Order Comment: Speci men Type: URINE SPECIMENOrdering Facility: [facility] Address: [address] [place] [address] Performed By: #### 2 4356-8 ####[facility] LABORATORYCLIA [id number] [address] [place] Color (U) Light Yellow Normal Yellow [facility] Comment on above: Order Comment: Speci men Type: URINE SPECIMENOrdering Facility: [facility] Address: [address] [place] [address] Performed By: #### 2 4356-8 ####[facility] LABORATORYCLIA [id number] [address] Epithelial cells LM.HPF (Urine sed) [#/Area] Few Normal [facility] Comment on above: Order Comment: Speci men Type: URINE SPECIMENOrdering Facility: [facility] Address: [address] [place] [address] Performed By: #### 2 4356-8 ####[facility] LABORATORYCLIA [id number] [address] Glucose Test strip (U) [Mass/Vol] Negative Normal Trace, Negative [facility] Comment on above: Order Comment: Speci men Type: URINE SPECIMENOrdering Facility: [facility] Address: [address] [place] [address] Performed By: #### 2 4356-8 ####[facility] LABORATORYCLIA [id number] [place] [address] [place] Hemoglobin Ql (U) Negative Normal Negative, Trace [facility] Comment on above: Order Comment: Speci men Type: URINE SPECIMENOrdering Facility: [facility] Address: [address] [place] [address] Performed By: #### 2 4356-8 ####[facility] LABORATORYCLIA [id number] [place] [address] [place] Ketones Ql (U) Negative Normal Negative, Trace [facility] Comment on above: Order Comment: Speci men Type: URINE SPECIMENOrdering Facility: [facility] Address: [address] [place] [address] Performed By: #### 2 4356-8 ####[facility] LABORATORYCLIA [id number] [address] Leukocyte esterase Test strip Ql (U) Negative Normal Negative, 25 Patito/uL [facility] Comment on above: Order Comment: Speci men Type: URINE SPECIMENOrdering Facility: [facility] Address: [address] [place] [address] Performed By: #### 2 4356-8 ####[facility] LABORATORYCLIA [id number] [address] [place] Nitrite Ql (U) Negative Normal Negative [facility] Comment on above: Order Comment: Speci men Type: URINE SPECIMENOrdering Facility: [facility] Address: [address] [place] [address] Performed By: #### 2 4356-8 ####[facility] LABORATORYCLIA [id number] [place] [address] [place] pH (U) 7.5 [pH] Normal 5.0-8.0 [facility] Comment on above: Order Comment: Speci men Type: URINE SPECIMENOrdering Facility: [facility] Address: [address] [place] [address] Performed By: #### 2 4356-8 ####DECATUR LABORATORYIA [id number] [place] [address] [place] Protein (U) [Mass/Vol] Negative Normal Trace, Negative [facility] Comment on above: Order Comment: Speci men Type: URINE SPECIMENOrdering Facility: [facility] Address: [address] [place] [address] Performed By: #### 2 4356-8 ####[facility] HOSPITALIA [id number] [place] [address] [place] RBC LM.HPF (Urine sed) [#/Area] 0-3 /HPF Normal 0-3 /HPF [facility] Comment on above: Order Comment: Speci men Type: URINE SPECIMENOrdering Facility: [facility] Address: [address] [place] [address] Performed By: #### 2 4356-8 ####[facility]'S HOSPITALIA [id number] [place] [address] [place] Specific gravity (U) [Rel density] 1.009 Normal 1.005-1.030 [facility] Comment on above: Order Comment: Speci men Type: URINE SPECIMENOrdering Facility: [facility] Address: [address] [place] [address] Performed By: #### 2 4356-8 ####[facility] LABORATORYCLIA [id number] [place] [address] [place] Urobilinogen Ql (U) Normal Normal Normal [facility] Comment on above: Order Comment: Speci men Type: URINE SPECIMENOrdering Facility: [facility] Address: [address] [place] [address] Performed By: #### 2 4356-8 ####[facility] LABORATORYCLIA [id number] [place] [address] [place] WBC LM.HPF (Urine sed) [#/Area] 0-5 /HPF Normal 0-5 /HPF [facility] Comment on above: Order Comment: Speci men Type: URINE SPECIMENOrdering Facility: [facility] Address: [address] [place] [address] Performed By: #### 2 4356-8 ####[facility] LABORATORYCLIA [id number] [place] [address] [place] CNPNon 06-17-2023 CNPN Normal [facility] Home Health Recordson 2023 Home Health Records [id number] B4#1.00TIFF Normal [facility] Physician Referralon 024 Physician Referral [id number] 101#1.00TIFF Normal [facility] Provider Letteron 06-16-2023 Provider Letter [facility] CNPNon 06-15-2023 CNPN Normal [facility] ED Note-Physicianon 06-15-19 24 ED Note-Physician [id number] D0#1.00TIFF Normal [facility] Outside Hospital Correspo ndenceon 06-15-2023 Outside Hospital Correspondence [id number] A2#1.00TIFF Normal [facility] Physician Referralon 024 Physician Referral [id number] 38#1.00TIFF Normal [facility] RAD - CT Reporton 06-15-2023 RAD - CT Report [id number] F9#1.00TIFF Normal [facility] Transfer Inon 06-15-2023 Transfer In [id number] 80#1.00TIFF Normal [facility] Ambulatory Visit Summaryon 0 06-14-2023 Ambulatory Visit Summary Normal [address] [place] [address] [place] [address]- \.br\ Medications\.br\ What How Much When Why [...] Mouth Once a day (at bedtime)\.br\ Unchanged [facility] Prescription 0\.br\ Unchanged nystatin 100,000 Units Oral-Swish [...] for choosing us for your care.\.br\ \.br\ [facility] Auth for Release of Medical Recordson 06-14-2023 Auth for Release of Medical Records [id number] E3#1.00TIFF Normal [facility] CNPNon 06-14-2023 CNPN Normal [facility] Family Medicine Office/Clini c Noteon 06-14-2023 Family Medicine Office/Clinic Note Normal [facility] Comment on above: Result Comment: Elec tronically Signed By: Jaquan Paula\.br\Date and Time Signed: 06/14/23 13:22 EDT Home Health Recordson 2023 Home Health Records [id number] E4#1.00TIFF Normal [facility] Population Healthon 06-11-19 Population Health Normal [facility] Home Health Recordson 2023 Home Health Records [id number] 22#1.00TIFF Normal [facility] Retail - Clinical Noteon Retail - Clinical Note [id number] F2#1.00TIFF Normal [facility] ALLIED HEALTHon 06-09-2023 ALLIED HEALTH Normal [facility] Basic metabolic 2000 panelon 06-09-2023 Anion gap [Moles/Vol] 7 mmol/L Low 9-18 [facility] Comment on above: Order Comment: Speci men Type: BLOOD SPECIMENOrdering Facility: [facility] Address: [address] [place] [address] Performed By: #### 2 4321-2 ####[facility] LABORATORYCLIA [id number] [place] [address] [place] Calcium [Mass/Vol] 8.6 mg/dL Normal 8.5-10.2 [facility] Comment on above: Order Comment: Speci men Type: BLOOD SPECIMENOrdering Facility: [facility] Address: [address] [place] [address] Performed By: #### 2 4321-2 ####[facility] LABORATORYCLIA [id number] [place] [address] [place] Chloride [Moles/Vol] 107 mmol/L High 97-105 [facility] Comment on above: Order Comment: Speci men Type: BLOOD SPECIMENOrdering Facility: [facility] Address: [address] [place] [address] Performed By: #### 2 4321-2 ####[facility] LABORATORYCLIA [id number] [place] [address] [place] CO2 [Moles/Vol] 24 mmol/L Normal 22-30 [facility] Comment on above: Order Comment: Speci men Type: BLOOD SPECIMENOrdering Facility: [facility] Address: [address] [place] [address] Performed By: #### 2 4321-2 ####[facility] LABORATORYCLIA [id number] [facility] [place] [address] [place] Creatinine [Mass/Vol] 0.68 mg/dL Normal 0.58-0.96 [facility] Comment on above: Order Comment: Speci men Type: BLOOD SPECIMENOrdering Facility: [facility] Address: [address] [place] [address] Performed By: #### 2 4321-2 ####[facility] LABORATORYCLIA [id number] [place], [place] [address] [place] [address] [facility] Creatinine and Glomerular filtration rate.predicted panel (S/P/Bld) 117 mL/min/1.73m??? Normal >=60 [facility] Comment on above: Order Comment: Speci men Type: BLOOD SPECIMENOrdering Facility: [facility] Address: [address] [place] [address] Result Comment: Jessica mated Glomerular Filtration Rate [...] actual GFR. Performed By: #### 2 4321-2 ####[facility] LABORATORYCLIA [id number] [place] [address] [place] Glucose [Mass/Vol] 89 mg/dL Normal 74-99 [facility] Comment on above: Order Comment: Speci [facility] Type: BLOOD SPECIMENOrdering Facility: [facility] Address: [address] [place] [address] Result Comment: The [place] [employer] (ADA) provides guidance for cutoff [...] Standards of Medical Care in Diabetes 2016, [place] [employer]. Diabetes Care. 2016.39(Suppl 1). Performed By: #### 2 4321-2 ####[facility] LEM[facility]OREIA [id number] [place] [address] [place] Potassium [Moles/Vol] 4.1 mmol/L Normal 3.7-5.1 [facility] Comment on above: Order Comment: Speci men Type: BLOOD SPECIMENOrdering Facility: [facility] Address: [address] [place] [address] Performed By: #### 2 4321-2 ####[facility] L[facility] [id number] [place] [address] [place] Sodium [Moles/Vol] 138 mmol/L Normal 136-144 [facility] Comment on above: Order Comment: Lyssai men Type: BLOOD SPECIMENOrdering Facility: [facility] Address: [address] [place] [address] Performed By: #### 2 4321-2 ####[facility] LEM[facility]ORE[facility] [id number] [place] [address] [place] Urea nitrogen [Mass/Vol] 10 mg/dL Normal 7-21 [facility] Comment on above: Order Comment: Speci men Type: BLOOD SPECIMENOrdering Facility: [facility] Address: [address] [place] [address] Performed By: #### 2 4321-2 ####[facility] [id number] [place] [address] [place] CASE MANAGEMon 06-09-2023 CASE MANAGEM Normal [facility] CNDSon 06-09-2023 CNDS Normal [facility] CONSULT PROGon 06-08-2023 [facility]SULT PROG [facility], ROUTINE U RINEon 06-08-2023 Amphetamines Confirm (U) [Mass/Vol] Negative Normal Negative [facility] Comment on above: Order Comment: Speci men Type: URINE SPECIMENOrdering Facility: [facility] Address: [address] [place] [address] Result Comment: Cuto ff threshold at 1000 ng/mL. Performed By: #### U TOX2 ####[facility] LABORATORYCLIA [id number] [place] [address] [place] BARBITURATES, URINE Negative Normal Negative [facility] Comment on above: Order Comment: Speci men Type: URINE SPECIMENOrdering Facility: [facility] Address: [address] [place] [address] Result Comment: Cuto ff threshold at 200 ng/mL. Performed By: #### U TOX2 ####[facility] LABORATORYIA [id number] [place] [address] [place] BENZODIAZEPINES, UR Negative Normal Negative [facility] Comment on above: Order Comment: Speci men Type: URINE SPECIMENOrdering Facility: [facility] Address: [address] [place] [address] Result Comment: Cuto ff threshold at 200 ng/mL. Performed By: #### U TOX2 ####[facility] LABORATORYIA [id number] [place] [address] [place] Cannabinoids Screen Ql (U) Negative Normal Negative [facility] Comment on above: Order Comment: Speci men Type: URINE SPECIMENOrdering Facility: [facility] Address: [address] [place] [address] Result Comment: Cuto ff threshold at 50 ng/mL. Performed By: #### U TOX2 ####[facility] LABORATORYIA [id number] [place] [address] [place] Cocaine Ql (U) Negative Normal Negative [facility] Comment on above: Order Comment: Speci men Type: URINE SPECIMENOrdering Facility: [facility] Address: [address] [place] [address] Result Comment: Cuto ff threshold at 300 ng/mL. Performed By: #### U TOX2 ####[facility] LABORATORYIA [id number] [place] [id number] [place] Ethanol (U) [Mass/Vol] <11 Normal <11 [facility] Comment on above: Order Comment: Speci men Type: URINE SPECIMENOrdering Facility: [facility] Address: [address] [place] [address] Performed By: #### U TOX2 ####[facility] LABORATORYCLIA [id number] [address] [place] Opiates Screen Ql (U) Negative Normal Negative [facility] Comment on above: Order Comment: Speci men Type: URINE SPECIMENOrdering Facility: [facility] Address: [address] [place] [address] Result Comment: Cuto ff threshold at 300 ng/mL. Performed By: #### U TOX2 ####[facility] LEM[facility]OREIA [id number] [address] [place] oxyCODONE cutoff Screen (U) [Mass/Vol] Negative Normal Negative [facility] Comment on above: Order Comment: Speci men Type: URINE SPECIMENOrdering Facility: [facility] Address: [address] [place] [address] Result Comment: Cuto ff threshold at 100 ng/mL. Performed By: #### U TOX2 ####[facility] LEM[facility] [id number] [place] [address] [place] Phencyclidine Ql (U) Negative Normal Negative [facility] Comment on above: Order Comment: Speci men Type: URINE SPECIMENOrdering Facility: [facility] Address: [address] [place] [address] Result Comment: Cuto ff threshold at 25 ng/mL. Performed By: #### U TOX2 ####[facility] LABORATORYIA [id number] [place] [address] [place] Basic metabolic 2000 panelon 06-07-2023 Anion gap [Moles/Vol] 9 mmol/L Normal 9-18 [facility] Comment on above: Order Comment: Speci men Type: BLOOD SPECIMENOrdering Facility: [facility] Address: [address] [place] [address] Performed By: #### 2 4321-2 ####[facility] LABORATORYIA [id number] [place] [address] [place] Calcium [Mass/Vol] 8.7 mg/dL Normal 8.5-10.2 [facility] Comment on above: Order Comment: Speci men Type: BLOOD SPECIMENOrdering Facility: [facility] Address: [address] [place] [address] Performed By: #### 2 4321-2 ####[facility] [id number] [place] [address] [place] Chloride [Moles/Vol] 108 mmol/L High 97-105 [facility] Comment on above: Order Comment: Speci men Type: BLOOD SPECIMENOrdering Facility: [facility] Address: [address] [place] [address] Performed By: #### 2 4321-2 ####[facility] [id number] [place] [address] [place] CO2 [Moles/Vol] 23 mmol/L Normal 22-30 [facility] Comment on above: Order Comment: Speci men Type: BLOOD SPECIMENOrdering Facility: [facility] Address: [address] [place] [address] Performed By: #### 2 4321-2 ####[facility] LABORATORYIA [id number] [place] [address] [place] Creatinine [Mass/Vol] 0.68 mg/dL Normal 0.58-0.96 [facility] Comment on above: Order Comment: Speci men Type: BLOOD SPECIMENOrdering Facility: [facility] Address: [address] [place] [address] Performed By: #### 2 4321-2 ####[facility] LABORATORYCLIA [id number] [facility] [place] [address] [place] Creatinine and Glomerular filtration rate.predicted panel (S/P/Bld) 117 mL/min/1.73m??? Normal >=60 [facility] Comment on above: Order Comment: eGraldo marrero Type: BLOOD SPECIMENOrdering Facility: [facility] Address: [address] [place] [address] Result Comment: Jessica mated Glomerular Filtration Rate [...] actual GFR. Performed By: #### 2 4321-2 ####[facility] [id number] [facility] [place] [place] [address] [place] Glucose [Mass/Vol] 98 mg/dL Normal 74-99 [facility] Comment on above: Order Comment: Geraldo marrero Type: BLOOD SPECIMENOrdering Facility: [facility] Address: [address] [place] [address] Result Comment: The [place] Diabetes [employer] (ADA) provides guidance for cutoff [...] Standards of Medical Care in Diabetes 2016, [place] [employer]. Diabetes Care. 2016.39(Suppl 1). Performed By: #### 2 4321-2 ####[facility] [id number] [facility] [place] [place] [address] [place] Potassium [Moles/Vol] 4.2 mmol/L Normal 3.7-5.1 [facility] Comment on above: Order Comment: Speci men Type: BLOOD SPECIMENOrdering Facility: [facility] Address: [address] [place] [address] Performed By: #### 2 4321-2 ####[facility] LABORATORYCLIA [id number] [place] [address] [place] Sodium [Moles/Vol] 140 mmol/L Normal 136-144 [facility] Comment on above: Order Comment: Speci men Type: BLOOD SPECIMENOrdering Facility: [facility] Address: [address] [place] [address] Performed By: #### 2 4321-2 ####[facility] LABORATORYIA [id number] [place] [address] [place] Urea nitrogen [Mass/Vol] 9 mg/dL Normal 7-21 [facility] Comment on above: Order Comment: Speci men Type: BLOOD SPECIMENOrdering Facility: [facility] Address: [address] [place] [address] Performed By: #### 2 4321-2 ####[facility] LABORATORYIA [id number] [place] [address] [place] CASE MGT INIT ASSESon 2023 CASE MGT INIT [facility] CBC panel Auto (Bld)on 06-06 Erythrocyte distribution width (RBC) [Ratio] 13.7 % Normal 11.5-15.0 [facility] Comment on above: Order Comment: Speci men Type: BLOOD SPECIMENOrdering Facility: [facility] Address: [address] [place] [address] Performed By: #### 5 8410-2 ####[facility] LABORATORYCLIA [id number] [place] [address] [place] Hematocrit (Bld) [Volume fraction] 32.6 % Low 36.0-46.0 [facility] Comment on above: Order Comment: Speci men Type: BLOOD SPECIMENOrdering Facility: [facility] Address: [address] [place], [place] [address] Performed By: #### 5 8410-2 ####[facility] [id number] [place] [address] [place] Hemoglobin (Bld) [Mass/Vol] 10.8 g/dL Low 11.5-15.5 [facility] Comment on above: Order Comment: Speci men Type: BLOOD SPECIMENOrdering Facility: [facility] Address: [address] [place] [address] Performed By: #### 5 8410-2 ####[facility] [id number] [address] [place] MCH (RBC) [Entitic mass] 29.9 pg Normal 26.0-34.0 [facility] Comment on above: Order Comment: Speci men Type: BLOOD SPECIMENOrdering Facility: [facility] Address: [address] [place] [address] Performed By: #### 5 8410-2 ####[facility] [id number] [address] [place] MCHC (RBC) [Mass/Vol] 33.1 g/dL Normal 30.5-36.0 [facility] Comment on above: Order Comment: Speci men Type: BLOOD SPECIMENOrdering Facility: [facility] Address: [address] [place] [address] Performed By: #### 5 8410-2 ####[facility] [id number] [address] [place] MCV (RBC) [Entitic vol] 90.3 fL Normal 80.0-100.0 [facility] Comment on above: Order Comment: Speci men Type: BLOOD SPECIMENOrdering Facility: [facility] Address: [address] [place] [address] Performed By: #### 5 8410-2 ####[facility] [id number] [place] [id number] [place] Nucleated RBC (Bld) [#/Vol] 10*3/uL Normal <0.01 [facility] Comment on above: Order Comment: Speci men Type: BLOOD SPECIMENOrdering Facility: [facility] Address: [address] [place] [address] Performed By: #### 5 8410-2 ####[facility] LABORATORYIA [id number] [place] [address] [place] Platelet mean volume (Bld) [Entitic vol] 10.5 fL Normal 9.0-12.7 [facility] Comment on above: Order Comment: Speci men Type: BLOOD SPECIMENOrdering Facility: [facility] Address: [address] [place] [address] Performed By: #### 5 8410-2 ####[facility] [id number] [place] [address] [place] Platelets (Bld) [#/Vol] 258 10*3/uL Normal 150-400 [facility] Comment on above: Order Comment: Speci men Type: BLOOD SPECIMENOrdering Facility: [facility] Address: [address] [place] [address] Performed By: #### 5 8410-2 ####[facility] [id number] [place] [address] [place] RBC (Bld) [#/Vol] 3.61 10*6/uL Low 3.90-5.20 [facility] Comment on above: Order Comment: Speci men Type: BLOOD SPECIMENOrdering Facility: [facility] Address: [address] [place] [address] Performed By: #### 5 8410-2 ####[facility] LABORATORYIA [id number] [place] [address] [place] WBC (Bld) [#/Vol] 3.65 10*3/uL Low 3.70-11.00 [facility] Comment on above: Order Comment: Speci men Type: BLOOD SPECIMENOrdering Facility: [facility] Address: [address] [place] [address] Performed By: #### 5 8410-2 ####[facility] LABORATORYCLIA [id number] [facility] [place] [address] [place] CONSULTon 06-07-2023 CONSULT Normal [facility] CONSULT Normal [facility] NUTRITIONon 06-07-2023 NUTRITION Normal [facility] CBC W Auto Differential pane l (Bld)on 06-06-2023 Basophils (Bld) [#/Vol] 0.05 10*3/uL Normal <0.11 [facility] Comment on above: Order Comment: Speci men Type: BLOOD SPECIMENOrdering Facility: [facility] Address: [address] [place] [address] Performed By: #### 5 7021-8 ####[facility] LABORATORYIA [id number] [facility] [place] [place] [address] [place] Basophils/100 WBC (Bld) 1.0 % Normal [facility] Comment on above: Order Comment: Speci men Type: BLOOD SPECIMENOrdering Facility: [facility] Address: [address] [place] [address] Performed By: #### 5 7021-8 ####[facility] [id number] [place] [id number] [place] Differential cell count method Nom (Bld) Auto Normal [facility] Comment on above: Order Comment: Speci men Type: BLOOD SPECIMENOrdering Facility: [facility] Address: [address] [place] [address] Performed By: #### 5 7021-8 ####[facility] LABORATORYIA [id number] [facility] [place] [address] [place] Eosinophils (Bld) [#/Vol] 0.11 10*3/uL Normal <0.46 [facility] Comment on above: Order Comment: Speci men Type: BLOOD SPECIMENOrdering Facility: [facility] Address: [address] [place] [address] Performed By: #### 5 7021-8 ####[facility] LABORATORYCLIA [id number] [facility] [place] [place] [address] [place] Eosinophils/100 WBC (Bld) 2.2 % Normal [facility] Comment on above: Order Comment: Speci men Type: BLOOD SPECIMENOrdering Facility: [facility] Address: [address] [place] [address] Performed By: #### 5 7021-8 ####[facility] LABORATORYCLIA [id number] [place] [address] [place] Erythrocyte distribution width (RBC) [Ratio] 13.4 % Normal 11.5-15.0 [facility] Comment on above: Order Comment: Speci men Type: BLOOD SPECIMENOrdering Facility: [facility] Address: [address] [place] [address] Performed By: #### 5 7021-8 ####[facility] [id number] [place] [address] [place] Hematocrit (Bld) [Volume fraction] 35.9 % Low 36.0-46.0 [facility] Comment on above: Order Comment: Speci men Type: BLOOD SPECIMENOrdering Facility: [facility] Address: [address] [place] [address] Performed By: #### 5 7021-8 ####[facility] [id number] [place] [address] [place] Hemoglobin (Bld) [Mass/Vol] 12.2 g/dL Normal 11.5-15.5 [facility] Comment on above: Order Comment: Speci men Type: BLOOD SPECIMENOrdering Facility: [facility] Address: [address] [place] [address] Performed By: #### 5 7021-8 ####[facility] LABORATORYIA [id number] [place] [address] [place] Immature granulocytes (Bld) [#/Vol] 10*3/uL Normal <0.10 [facility] Comment on above: Order Comment: Speci men Type: BLOOD SPECIMENOrdering Facility: [facility] Address: [address] [place] [address] Performed By: #### 5 7021-8 ####[facility] LABORATORYCLIA [id number] [place] [address] [place] Immature granulocytes/100 WBC (Bld) 0.2 % Normal [facility] Comment on above: Order Comment: Speci men Type: BLOOD SPECIMENOrdering Facility: [facility] Address: [address] [place] [address] Performed By: #### 5 7021-8 ####[facility] LABORATORYIA [id number] [place] [address] [place] Lymphocytes (Bld) [#/Vol] 1.70 10*3/uL Normal 1.00-4.00 [facility] Comment on above: Order Comment: Speci men Type: BLOOD SPECIMENOrdering Facility: [facility] Address: [address] [place] [address] Performed By: #### 5 7021-8 ####[facility] [id number] [address] [place] Lymphocytes/100 WBC (Bld) 33.3 % Normal [facility] Comment on above: Order Comment: Speci men Type: BLOOD SPECIMENOrdering Facility: [facility] Address: [address] [place] [address] Performed By: #### 5 7021-8 ####[facility] [id number] [place] [address] [place] MCH (RBC) [Entitic mass] 30.1 pg Normal 26.0-34.0 [facility] Comment on above: Order Comment: Speci men Type: BLOOD SPECIMENOrdering Facility: [facility] Address: [address] [place] [address] Performed By: #### 5 7021-8 ####[facility] [id number] [place] [id number] [place] MCHC (RBC) [Mass/Vol] 34.0 g/dL Normal 30.5-36.0 [facility] Comment on above: Order Comment: Speci men Type: BLOOD SPECIMENOrdering Facility: [facility] Address: [address] [place] [address] Performed By: #### 5 7021-8 ####[facility] LABORATORYIA [id number] [place] [address] [place] MCV (RBC) [Entitic vol] 88.6 fL Normal 80.0-100.0 [facility] Comment on above: Order Comment: Speci men Type: BLOOD SPECIMENOrdering Facility: [facility] Address: [address] [place] [address] Performed By: #### 5 7021-8 ####[facility] [id number] [place] [address] [place] Monocytes (Bld) [#/Vol] 0.42 10*3/uL Normal <0.87 [facility] Comment on above: Order Comment: Speci men Type: BLOOD SPECIMENOrdering Facility: [facility] Address: [address] [place] [address] Performed By: #### 5 7021-8 ####[facility] [id number] [place] [address] [place] Monocytes/100 WBC (Bld) 8.2 % Normal [facility] Comment on above: Order Comment: Speci men Type: BLOOD SPECIMENOrdering Facility: [facility] Address: [address] [place] [address] Performed By: #### 5 7021-8 ####[facility]EM[facility]ORE[facility] [id number] [place] [address] [place] Neutrophils (Bld) [#/Vol] 2.81 10*3/uL Normal 1.45-7.50 [facility] Comment on above: Order Comment: Speci men Type: BLOOD SPECIMENOrdering Facility: [facility] Address: [address] [place] [address] Performed By: #### 5 7021-8 ####[facility] LABORATORYIA [id number] [place] [address] [place] Neutrophils/100 WBC (Bld) 55.1 % Normal [facility] Comment on above: Order Comment: Speci men Type: BLOOD SPECIMENOrdering Facility: [facility] Address: [address] [place] [address] Performed By: #### 5 7021-8 ####[facility] [id number] [place] [address] [place] Nucleated RBC (Bld) [#/Vol] 10*3/uL Normal <0.01 [facility] Comment on above: Order Comment: Speci men Type: BLOOD SPECIMENOrdering Facility: [facility] Address: [address] [place] [address] Performed By: #### 5 7021-8 ####[facility] LABORATORYIA [id number] [place] [address] [place] Nucleated RBC/100 WBC (Bld) [Ratio] 0.0 /100 WBC Normal [facility] Comment on above: Order Comment: Speci men Type: BLOOD SPECIMENOrdering Facility: [facility] Address: [address] [place] [address] Performed By: #### 5 7021-8 ####[facility] [id number] [place] [address] [place] Platelet mean volume (Bld) [Entitic vol] 10.3 fL Normal 9.0-12.7 [facility] Comment on above: Order Comment: Speci men Type: BLOOD SPECIMENOrdering Facility: [facility] Address: [address] [place] [address] Performed By: #### 5 7021-8 ####[facility] LABORATORYIA [id number] [place] [address] [place] Platelets (Bld) [#/Vol] 323 10*3/uL Normal 150-400 [facility] Comment on above: Order Comment: Speci men Type: BLOOD SPECIMENOrdering Facility: [facility] Address: [address] [place] [address] Performed By: #### 5 7021-8 ####[facility] LABORATORYIA [id number] [place] [address] [facility] RBC (Bld) [#/Vol] 4.05 10*6/uL Normal 3.90-5.20 [facility] Comment on above: Order Comment: Speci men Type: BLOOD SPECIMENOrdering Facility: [facility] Address: [address] [place] [address] Performed By: #### 5 7021-8 ####[facility] LABORATORYCLIA [id number] [place] [address] [place] WBC (Bld) [#/Vol] 5.10 10*3/uL Normal 3.70-11.00 [facility] Comment on above: Order Comment: Speci men Type: BLOOD SPECIMENOrdering Facility: [facility] Address: [address] [place] [address] Performed By: #### 5 7021-8 ####[facility] [id number] [place] [address] [place] ABD/PEL W IVCONon 024 CT ABD/PEL W IVCON Normal [facility]spital Comprehensive metabolic 2000 panelon 06-06-2023 Albumin [Mass/Vol] 4.3 g/dL Normal 3.9-4.9 [facility] Comment on above: Order Comment: Speci men Type: BLOOD SPECIMENOrdering Facility: [facility] Address: [address] [place] [address] Performed By: #### 2 4323-8, 3039-3, ####[facility] LABORATORYCLIA [id number] [place] [address] [place] ALP [Catalytic activity/Vol] 62 U/L Normal 34-123 [facility] Comment on above: Order Comment: Speci men Type: BLOOD SPECIMENOrdering Facility: [facility] Address: [address] [place] [address] Performed By: #### 2 4323-8, 0-3, ####[facility] LABORATORYIA [id number] [place] [address] [place] ALT [Catalytic activity/Vol] 16 U/L Normal 7-38 [facility] Comment on above: Order Comment: Speci men Type: BLOOD SPECIMENOrdering Facility: [facility] Address: [address] [place] [address] Performed By: #### 2 4323-8, 0-3, ####[facility] LABORATORYCLIA [id number] [place] [address] [place] Anion gap [Moles/Vol] 10 mmol/L Normal 9-18 [facility] Comment on above: Order Comment: Speci men Type: BLOOD SPECIMENOrdering Facility: [facility] Address: [address] [place] [address] Performed By: #### 2 4323-8, 3, ####[facility] LABORATORYCLIA [id number] [place] [address] [place] AST [Catalytic activity/Vol] 28 U/L Normal 13-35 [facility] Comment on above: Order Comment: Speci men Type: BLOOD SPECIMENOrdering Facility: [facility] Address: [address] [place] [address] Performed By: #### 2 4323-8, 3, ####[facility] LABORATORYCLIA [id number] [place] [address] [place] Bilirubin [Mass/Vol] 0.3 mg/dL Normal 0.2-1.3 [facility] Comment on above: Order Comment: Speci men Type: BLOOD SPECIMENOrdering Facility: [facility] Address: [address] [place] [address] Performed By: #### 2 4323-8, 3, ####[facility] LABORATORYCLIA [id number] [place] [address] [place] Calcium [Mass/Vol] 9.1 mg/dL Normal 8.5-10.2 [facility] Comment on above: Order Comment: Speci men Type: BLOOD SPECIMENOrdering Facility: [facility] Address: [address] [place] [id number] Performed By: #### 2 4323-8, 3040-3, ####[facility] LABORATORYCLIA [id number] [facility] [place] [place] [address] [place] Chloride [Moles/Vol] 103 mmol/L Normal 97-105 [facility] Comment on above: Order Comment: Speci men Type: BLOOD SPECIMENOrdering Facility: [facility] Address: [address] [place] [address] Performed By: #### 2 4323-8, 0-3, ####[facility] LABORATORYCLIA [id number] [place] [address] [place] CO2 [Moles/Vol] 23 mmol/L Normal 22-30 [facility] Comment on above: Order Comment: Speci men Type: BLOOD SPECIMENOrdering Facility: [facility] Address: [address] [place] [address] Performed By: #### 2 4323-8, 0-3, ####[facility] SERVICESCLIA [id number] [place] [address] [place] Creatinine [Mass/Vol] 0.74 mg/dL Normal 0.58-0.96 [facility] Comment on above: Order Comment: Speci men Type: BLOOD SPECIMENOrdering Facility: [facility] Address: [address] [place] [address] Performed By: #### 2 4323-8, 03, ####[facility] LABORATORYCLIA [id number] [facility] [place] [address] [place] Creatinine and Glomerular filtration rate.predicted panel (S/P/Bld) 109 mL/min/1.73m??? Normal >=60 [facility] Comment on above: Order Comment: Speci men Type: BLOOD SPECIMENOrdering Facility: [facility] Address: [address] [place] [address] Result Comment: Jessica mated Glomerular Filtration Rate [...] GFR. Performed By: #### 2 4323-8, 0-3, ####[facility] LABORATORYCLIA [id number] [place] [address] [place] Glucose [Mass/Vol] 91 mg/dL Normal 74-99 [facility] Comment on above: Order Comment: Geraldo marrero Type: BLOOD SPECIMENOrdering Facility: [facility] Address: [address] [id number] Result Comment: The [place] [employer] (ADA) provides guidance for cutoff [...] Standards of Medical Care in Diabetes 2016, [place] [employer]. Diabetes Care. 2016.39(Suppl 1). Performed By: #### 2 4323-8, 0-3, ####[facility] LABORATORYCLIA [id number] [place] [address] [place] Potassium [Moles/Vol] 4.0 mmol/L Normal 3.7-5.1 [facility] Comment on above: Order Comment: Geraldo marrero Type: BLOOD SPECIMENOrdering Facility: [facility] Address: [address] [place] [address] Performed By: #### 2 4323-8, 0-3, ####[facility] LABORATORYCLIA [id number] [facility] [place] [address] [facility] Protein [Mass/Vol] 7.4 g/dL Normal 6.3-8.0 [facility] Comment on above: Order Comment: Speci men Type: BLOOD SPECIMENOrdering Facility: [facility] Address: [address] [place] [address] Performed By: #### 2 4323-8, 3040-3, 93494-5 ####[facility] SERVICESCLIA [id number] [place] [address] [place] [facility] Sodium [Moles/Vol] 136 mmol/L Normal 136-144 [facility] Comment on above: Order Comment: Speci men Type: BLOOD SPECIMENOrdering Facility: [facility] Address: [address] [place] [address] Performed By: #### 2 4323-8, 0-3, ####[facility] [id number] [place], [place] [address] [place] [address] Urea nitrogen [Mass/Vol] 14 mg/dL Normal 7- [facility] Comment on above: Order Comment: Speci men Type: BLOOD SPECIMENOrdering Facility: [facility] Address: [address] [place] [address] Performed By: #### 2 4323-8, 0-3, ####[facility] [id number] [place] [address] [facility] ECG COMPLETEon 06-06-2023 ECG COMPLETE Normal [facility] NOTEon 06-06-2023 ED NOTE Normal [facility] ED NOTE Normal [facility] ED PROV NOTEon 06-06-2023 ED PROV NOTE Normal [facility] FLUABV+SARS-CoV-2+RSV Pnl Re sp HANK+probeon 06-06-2023 FLUABV+SARS-CoV-2+R SV Pnl Resp HANK+probe Normal [facility] Comment on above: Performed By: #### 9 5941-1 ####[facility] LABORATORYCLIA [id number] [place] [address] [place] HISTORY PHYSICALon HISTORY PHYSICAL Normal [facility] Lipase SerPl-cCncon 06-06-19 24 Lipase [Catalytic activity/Vol] 75 U/L High 16-61 [facility] Comment on above: Order Comment: Speci men Type: BLOOD SPECIMENOrdering Facility: [facility] Address: [address] [place] [address] Performed By: #### 2 4323-8, 0-3, 99097-4 ####[facility] [id number] [place] [address] [place] Magnesium SerPl-mCncon 06-05 Magnesium [Mass/Vol] 2.1 mg/dL Normal 1.7-2.3 [facility] Comment on above: Order Comment: Speci men Type: BLOOD SPECIMENOrdering Facility: [facility] Address: [address] [place] [address] Performed By: #### 2 4323-8, 0-3, ####[facility] [id number] [place] [address] [place] Urinalysis complete panel (U )on 06-06-2023 Bilirubin Ql (U) Negative Normal Negative [facility] Comment on above: Order Comment: Speci men Type: URINE SPECIMENOrdering Facility: [facility] Address: [address] [place] [address] Performed By: #### 2 4356-8 ####[facility] [id number] [place] [address] [place] Clarity (Unsp spec) Clear Normal Clear [facility] Comment on above: Order Comment: Speci men Type: URINE SPECIMENOrdering Facility: [facility] Address: [address] [place] [address] Performed By: #### 2 4356-8 ####[facility] [id number] [place] [address] [place] Color (U) Light Yellow Normal yellow [facility] Comment on above: Order Comment: Speci men Type: URINE SPECIMENOrdering Facility: [facility] Address: [address] [place] [address] Performed By: #### 2 4356-8 ####[facility] [id number] [place] [address] [place] Epithelial cells LM.HPF (Urine sed) [#/Area] Few Normal [facility] Comment on above: Order Comment: Speci men Type: URINE SPECIMENOrdering Facility: [facility] Address: [address] [place] [address] Performed By: #### 2 4356-8 ####[facility] [id number] [place] [id number] [place] Glucose Test strip (U) [Mass/Vol] Negative Normal Trace, Negative [facility] Comment on above: Order Comment: Speci men Type: URINE SPECIMENOrdering Facility: [facility] Address: [address] [place] [address] Performed By: #### 2 4356-8 ####[facility] [id number] [place] [address] [place] Hemoglobin Ql (U) Negative Normal Negative, Trace [facility] Comment on above: Order Comment: Speci men Type: URINE SPECIMENOrdering Facility: [facility] Address: [address] [place] [address] Performed By: #### 2 4356-8 ####[facility] [id number] [place] [address] [place] Ketones Ql (U) Negative Normal Negative, Trace [facility] Comment on above: Order Comment: Speci men Type: URINE SPECIMENOrdering Facility: [facility] Address: [address] [place] [address] Performed By: #### 2 4356-8 ####[facility] [id number] [place] [address] [place] Leukocyte esterase Test strip Ql (U) Negative Normal Negative, 25 Patito/uL [facility] Comment on above: Order Comment: Speci men Type: URINE SPECIMENOrdering Facility: [facility] Address: [address] [place] [address] Performed By: #### 2 4356-8 ####[facility] [id number] [place] [address] [place] Nitrite Ql (U) Negative Normal Negative [facility] Comment on above: Order Comment: Speci men Type: URINE SPECIMENOrdering Facility: [facility] Address: [address] [place] [address] Performed By: #### 2 4356-8 ####[facility] [id number] [place] [address] [place] pH (U) 7.0 [pH] Normal 5.0-8.0 [facility] Comment on above: Order Comment: Speci men Type: URINE SPECIMENOrdering Facility: [facility] Address: [address] [place] [address] Performed By: #### 2 4356-8 ####[facility] [id number] [place] [address] [place] Protein (U) [Mass/Vol] Trace Normal Trace, Negative [facility] Comment on above: Order Comment: Speci men Type: URINE SPECIMENOrdering Facility: [facility] Address: [address] [place] [address] Performed By: #### 2 4356-8 ####[facility] [id number] [place] [id number] [place] RBC LM.HPF (Urine sed) [#/Area] 3-5 /HPF Abnormal 0-3 /HPF [facility] Comment on above: Order Comment: Speci men Type: URINE SPECIMENOrdering Facility: [facility] Address: [address] [place] [address] Performed By: #### 2 4356-8 ####[facility] [id number] [place] [address] [place] Specific gravity (U) [Rel density] 1.024 Normal 1.005-1.030 [facility] Comment on above: Order Comment: Speci men Type: URINE SPECIMENOrdering Facility: [facility] Address: [address] [place] [address] Performed By: #### 2 4356-8 ####[facility] LABORATORYIA [id number] [place] [address] [place] Urobilinogen Ql (U) Normal Normal Normal [facility] Comment on above: Order Comment: Speci men Type: URINE SPECIMENOrdering Facility: [facility] Address: [address] [place] [address] Performed By: #### 2 4356-8 ####[facility] [id number] [address] [place] WBC LM.HPF (Urine sed) [#/Area] 0-5 /HPF Normal 0-5 /HPF [facility] Comment on above: Order Comment: Speci men Type: URINE SPECIMENOrdering Facility: [facility] Address: [address] [place] [address] Performed By: #### 2 4356-8 ####[facility] [id number] [place] [address] [place] ED Note-Physicianon 06-04-19 ED Note-Physician [id number] 4B#1.00TIFF Normal [facility] Ambulatory Visit Summaryon 0 06-02-2023 Ambulatory Visit Summary Normal [address] [place] [address]- \.br\ Medications\.br\ What How Much When Why [...] for choosing us for your care.\.br\ \.br\ [facility] Family Medicine Office/Clini c Noteon 06-02-2023 Family Medicine Office/Clinic Note Normal [facility] Comment on above: Result Comment: Elec tronically Signed By: Jaquan Paula\.br\Date and Time Signed: 06/02/23 12:30 EDT Provider Letteron 06-02-2023 Provider Letter [facility] Population Healthon 05-31-19 Population Health Normal [facility] Alanine aminotransferase [En zymatic activity/volume] in Serum or PlasmaOrdered By: Gabino Parker on 05-30-2023 ALT [Catalytic activity/Vol] 11 U/L Normal 7-52 [facility] Comment on above: Performed By: #### H EPATIC, MG, LIPASE, CMP, CBC #### [facility] [address] Albumin [Mass/volume] in Ser um or Plasma by Bromocresol green (BCG) dye binding methoOrdered By: Gabino Parker on 05-30-2023 Albumin BCG dye [Mass/Vol] 4.1 g/dL 3.5-5.7 [facility] Alkaline phosphatase [Enzyma tic activity/volume] in Serum or PlasmaOrdered By: Gabino Parker on 05-30-2023 ALP [Catalytic activity/Vol] 56 U/L Normal 34-104 [facility] Comment on above: Performed By: #### H EPATIC, MG, LIPASE, CMP, CBC #### [address] Aspartate aminotransferase [ Enzymatic activity/volume] in Serum or PlasmaOrdered By: Gabino Parker on 05-30-2023 AST [Catalytic activity/Vol] 22 U/L Normal 13-39 [facility] Comment on above: Performed By: #### H EPATIC, MG, LIPASE, CMP, CBC #### [address] Automated basophil %Ordered By: Gabino Parker on 05-30-2023 Basophils/100 WBC (Bld) 0.4 % Normal . [facility] Comment on above: Performed By: #### H EPATIC, MG, LIPASE, CMP, CBC #### [address] Automated basophil countOrde red By: Gabino Parker on 05-30-2023 Basophils (Bld) [#/Vol] 0.0 10*3/uL Normal 0.0-0.2 [facility] Comment on above: Result Comment: PERF ORMED BY: [place] [address] PATHOLOGIST [employer]ISH[employer] BAUTISTA BAKER M.D. Performed By: #### H EPATIC, MG, LIPASE, CMP, CBC #### [address] Automated blood monocyte cou ntOrdered By: Gabino Parker on 05-30-2023 Monocytes (Bld) [#/Vol] 0.4 10*3/uL Normal 0.0-0.8 [facility] Comment on above: Performed By: #### H EPATIC, MG, LIPASE, CMP, CBC #### [address] Automated eosinophil %Ordere d By: Gabino Parker on 05-30-2023 Eosinophils/100 WBC (Bld) 0.4 % Normal . [facility] Comment on above: Performed By: #### H EPATIC, MG, LIPASE, CMP, CBC #### [address] Automated eosinophil countOr dered By: Gabino Parker on 05-30-2023 Eosinophils (Bld) [#/Vol] 0.0 10*3/uL Normal 0.0-0.45 [facility] Comment on above: Performed By: #### H EPATIC, MG, LIPASE, CMP, CBC #### [address] Automated erythrocytes count in urine sediment (number/area)Ordered By: Gabino Parker on 05-30-2023 RBC Auto (Urine sed) [#/Area] 3-4 [HPF] 0-4 [facility] Automated leukocytes count i n urine sediment (number/area)Ordered By: Gabino Parker on 05-30-2023 WBC Auto (Urine sed) [#/Area] 5-9 [HPF] High 0-4 [facility] Automated monocyte %Ordered By: Gabino Parker on 05-30-2023 Monocytes/100 WBC (Bld) 4.5 % Normal . [facility] Comment on above: Performed By: #### H EPATIC, MG, LIPASE, CMP, CBC #### [address] Automated neutrophil %Ordere d By: Gabino Parker on 05-30-2023 Neutrophils/100 WBC (Bld) 79.0 % Normal . [facility] Comment on above: Performed By: #### H EPATIC, MG, LIPASE, CMP, CBC #### [address] Automated urine color determ inationOrdered By: Gabino Parker on 05-30-2023 Color (U) Yellow Normal Yellow [facility] Comment on above: Order Comment: Name Collection Type:: Clean-Voided Midstream Performed By: #### A DDONUAPLUS, UHCG, CUU #### [address] Bilirubin Test strip Ql (U)O rdered By: Gabino Parker on 05-30-2023 Bilirubin Ql (U) Negative Negative [facility] Bilirubin.direct [Mass/volum e] in Serum or PlasmaOrdered By: Gabino Parker on 05-30-2023 Bilirubin.direct [Mass/Vol] 0.10 mg/dL 0.03-0.18 [facility] Bilirubin.total [Mass/volume ] in Serum or PlasmaOrdered By: Gabino Parker on 05-30-2023 Bilirubin [Mass/Vol] 0.4 mg/dL Normal 0.3-1.0 [facility] Comment on above: Performed By: #### H EPATIC, MG, LIPASE, CMP, CBC #### [facility] [address] CNPNon 05-30-2023 CNPN Normal [facility] CT abdomen pelvis w conon CT abdomen pelvis w con [facility] [place] [address] [place] [address] CT Scan Report Signed Patient: Abbey Garcia MR#: [id number] : 1990 Acct:[id number] Age/Sex: 33 / F ADM Date: 05/30/23 Loc: ER Room: Type: [facility] ER Attending Dr: Copies to: Gabino [...] Melisa Hutchinson M.D.05/30/2023 5:49 PM Dictation Location: [place] [address] Transcribed By: [facility] 05/30/231748 Dictated By: Melisa Hutchinson II, MD 05/30/231739 Signed By: 05/30/231748 Normal [facility] Calcium [Mass/volume] in Ser um or PlasmaOrdered By: Gabino Parker on 05-30-2023 Calcium [Mass/Vol] 9.3 mg/dL Normal 8.6-10.3 [facility] Comment on above: Performed By: #### H EPATIC, MG, LIPASE, CMP, CBC #### [facility] [address] [place] [address] [place] Carbon dioxide, total [Moles /volume] in Serum or PlasmaOrdered By: Gabino Parker on 05-30-2023 CO2 [Moles/Vol] 27.7 mmol/L Normal 21.0-31.0 [facility] Comment on above: Performed By: #### H EPATIC, MG, LIPASE, CMP, CBC #### [facility] [address] [place] [id number] [place] Chloride [Moles/volume] in S elder or PlasmaOrdered By: Gabino Parker on 05-30-2023 Chloride [Moles/Vol] 103 mmol/L Normal 98-107 [facility] Comment on above: Performed By: #### H EPATIC, MG, LIPASE, CMP, CBC #### [address] Complete Blood Count Auto Di ffon 05-30-2023 Mean Corpuscular HGB Conc 33.8 g/dL Normal 32.0-35.0 [facility] Comment on above: Performed By: #### H EPATIC, MG, LIPASE, CMP, CBC #### [address] Monocytes/100 WBC (Bld) 16.47 % Normal 0.00-20.00 [facility] Comment on above: Performed By: #### H EPATIC, MG, LIPASE, CMP, CBC #### [address] NRBC% 0.1 /100{WBC} Normal 0-0.5 [facility] Comment on above: Performed By: #### H EPATIC, MG, LIPASE, CMP, CBC #### [address] Comprehensive Metabolic Pane nestor 05-30-2023 Albumin [Mass/Vol] 4.1 g/dL Normal 3.5-5.7 [facility] Comment on above: Performed By: #### H EPATIC, MG, LIPASE, CMP, CBC #### [address] Creatinine Clr Calc Pharmacy 118.42 Normal [facility] Comment on above: Performed By: #### H EPATIC, MG, LIPASE, CMP, CBC #### [address] GFR/1.73 sq M.predicted MDRD (S/P/Bld) [Vol rate/Area] mL/min/{1.73_m2} Normal [facility] Comment on above: Performed By: #### H EPATIC, MG, LIPASE, CMP, CBC #### [address] Creatinine [Mass/volume] in Serum or PlasmaOrdered By: Gabino Parker on 05-30-2023 Creatinine [Mass/Vol] 0.70 mg/dL Normal 0.60-1.20 [facility] Comment on above: Performed By: #### H EPATIC, MG, LIPASE, CMP, CBC #### [facility] [address] [place] [address] [place] Dipstick and Microscopicon 0 05-30-2023 Appearance (U) Clear Normal Clear [facility] Comment on above: Order Comment: Name Collection Type:: Clean-Voided Midstream Performed By: #### A DDONUAPLUS, UHCG, CUU #### [address] Bacteria,Urine None Seen Normal None Seen [facility] Comment on above: Order Comment: Name Collection Type:: Clean-Voided Midstream Performed By: #### A DDONUAPLUS, UHCG, CUU #### [address] Bilirubin,Urine Negative Normal Negative [facility] Comment on above: Order Comment: Name Collection Type:: Clean-Voided Midstream Performed By: #### A DDONUAPLUS, UHCG, CUU #### [address] Glucose Ql (U) Normal Normal Normal [facility] Comment on above: Order Comment: Name Collection Type:: Clean-Voided Midstream Performed By: #### A DDONUAPLUS, UHCG, CUU #### [place] [address] [place] Hyaline Casts,Urine 0-8 Normal 0-8 [facility] Comment on above: Order Comment: Name Collection Type:: Clean-Voided Midstream Performed By: #### A DDONUAPLUS, UHCG, CUU #### [place] [address] [place] Ketones Ql (U) Negative Normal Negative [facility] Comment on above: Order Comment: Name Collection Type:: Clean-Voided Midstream Performed By: #### A DDONUAPLUS, UHCG, CUU #### [address] Leukocyte esterase Test strip Ql (U) 1+ High Negative [facility] Comment on above: Order Comment: Name Collection Type:: Clean-Voided Midstream Performed By: #### A DDONUAPLUS, UHCG, CUU #### [place] [address] [place] Nitrite,Urine Negative Normal Negative [facility] Comment on above: Order Comment: Name Collection Type:: Clean-Voided Midstream Performed By: #### A DDONUAPLUS, UHCG, CUU #### [place] [address] [place] Occult Blood,Urine Negative Normal Negative [facility] Comment on above: Order Comment: Name Collection Type:: Clean-Voided Midstream Performed By: #### A DDONUAPLUS, UHCG, CUU #### [place] [address] [place] Protein,Urine Negative Normal Negative [facility] Comment on above: Order Comment: Name Collection Type:: Clean-Voided Midstream Performed By: #### A DDONUAPLUS, UHCG, CUU #### [place] [address] [place] RBC,Urine 3-4 Normal 0-4 [facility] Comment on above: Order Comment: Name Collection Type:: Clean-Voided Midstream Performed By: #### A DDONUAPLUS, UHCG, CUU #### [place] [address] [place] Specificy [place],Urine 1.011 Normal 1.001-1.030 [facility] Comment on above: Order Comment: Name Collection Type:: Clean-Voided Midstream Performed By: #### A DDONUAPLUS, UHCG, CUU #### [place] [address] [place] Squamous Epithelial Cell,Urine 0-1 Normal 0-2 [facility] Comment on above: Order Comment: Name Collection Type:: Clean-Voided Midstream Performed By: #### A DDONUAPLUS, UHCG, CUU #### [address] Urobilinogen,Urine Normal Normal Normal [facility] Comment on above: Order Comment: Name Collection Type:: Clean-Voided Midstream Performed By: #### A DDONUAPLUS, UHCG, CUU #### [address] WBC,Urine 5-9 High 0-4 [facility] Comment on above: Order Comment: Name Collection Type:: Clean-Voided Midstream Performed By: #### A DDONUAPLUS, UHCG, CUU #### [address] Erythrocyte distribution wid th [Ratio] by Automated countOrdered By: Gabino Parker on 05-30-2023 Erythrocyte distribution width (RBC) [Ratio] 15.5 % High 11.9-15.3 [facility] Comment on above: Performed By: #### H EPATIC, MG, LIPASE, CMP, CBC #### [address] Erythrocytes [#/volume] in B lood by Automated countOrdered By: Gabino Parker on 05-30-2023 RBC (Bld) [#/Vol] 3.86 10*6/uL Normal 3.60-5.00 [facility] Comment on above: Performed By: #### H EPATIC, MG, LIPASE, CMP, CBC #### [address] Glucose [Mass/volume] in Ser um or PlasmaOrdered By: Gabino Parker on 05-30-2023 Glucose [Mass/Vol] 81 mg/dL Normal 70-100 [facility] Comment on above: ADA recommended refe rence rangeRandom Glucose Reference Range is dependent on time and content of last meal. Glucose of more than 200 mg/dL in a nonstressed, ambulatory subject supports the diagnosis of Diabetes Mellitus. Result Comment: [place] om Glucose Reference Range is dependent on time and content of last meal. Glucose of more than 200 mg/dL in a nonstressed, ambulatory subject supports the diagnosis of Diabetes Mellitus. ADA recommended reference range Performed By: #### H EPATIC, MG, LIPASE, CMP, CBC #### [address] HCG ( test) [place].rapi d Ql (U)Ordered By: Gabino Parker on 05-30-2023 HCG ( test) Ql (U) Negative [facility] HCG,Urineon 05-30-2023 Beta HCG ( test) Ql (U) Negative Normal [facility] Comment on above: Order Comment: Name Collection Type:: Clean-Voided Midstream Result Comment: PERF ORMED BY: [place] [address] PATHOLOGIST FINISHING FRAME [employer]NER BAUTISTA BAKER M.D. Performed By: #### A DDONUAJESSICA, CG, CUU #### [address] Hematocrit [Volume Fraction] of Blood by Automated countOrdered By: Gabino Parker on 05-30-2023 Hematocrit (Bld) [Volume fraction] 34.9 % Normal 34.0-46.4 [facility] Comment on above: Performed By: #### H EPATIC, MG, LIPASE, CMP, CBC #### [address] Hemoglobin [Mass/volume] in BloodOrdered By: Gabino Parker on 05-30-2023 Hemoglobin (Bld) [Mass/Vol] 11.8 g/dL Normal 11.8-15.4 [facility] Comment on above: Performed By: #### H EPATIC, MG, LIPASE, CMP, CBC #### [address] Hepatic Panelon 05-30-2023 Bilirubin,Indirect 0.3 mg/dL Normal [facility] Comment on above: Performed By: #### H EPATIC, MG, LIPASE, CMP, CBC #### [place] [address] [place] Bilirubin.indirect [Mass/Vol] 0.10 mg/dL Normal 0.03-0.18 [facility] Comment on above: Performed By: #### H EPATIC, MG, LIPASE, CMP, CBC #### [facility] [address] Ketones Auto test strip (U) [Mass/Vol]Ordered By: Gabino Parker on 05-30-2023 Ketones (U) [Mass/Vol] Negative Negative [facility] Laboratory - UrinalysisOrder ed By: Gabino Parker on 05-30-2023 Hyaline casts LM Ql (Urine sed) 0-8 [LPF] 0-8 [facility] Leukocytes [#/volume] correc darvin for nucleated erythrocytes in Blood by Automated counOrdered By: Gabino Parker on 05-30-2023 WBC corrected for nucl RBC Auto (Bld) [#/Vol] 8.8 10*3/uL 3.8-11.6 [facility] Leukocytes [#/volume] in Blo od by Automated countOrdered By: Gabino Parker on 05-30-2023 WBC (Bld) [#/Vol] 8.8 10*3/uL Normal 3.8-11.6 [facility] Comment on above: Performed By: #### H EPATIC, MG, LIPASE, CMP, CBC #### [facility] [address] [place] [address] Lipase [Enzymatic activity/v olume] in Serum or PlasmaOrdered By: Gabino Parker on 05-30-2023 Lipase [Catalytic activity/Vol] 37.0 U/L Normal 11.0-82.0 [facility] Comment on above: Result Comment: PERF ORMED BY: [place] [address] PATHOLOGIST FINISHING [employer]NER BAUTISTA BAKER M.D. Performed By: #### H EPATIC, MG, LIPASE, CMP, CBC #### [address] Lymphocytes [#/volume] in Bl ood by Automated countOrdered By: Gabino Parker on 05-30-2023 Lymphocytes (Bld) [#/Vol] 1.4 10*3/uL Normal 1.00-4.8 [facility] Comment on above: Performed By: #### H EPATIC, MG, LIPASE, CMP, CBC #### [address] Lymphocytes/100 leukocytes i n Blood by Automated countOrdered By: Gabino Parker on 05-30-2023 Lymphocytes/100 WBC (Bld) 15.7 % Normal . [facility] Comment on above: Performed By: #### H EPATIC, MG, LIPASE, CMP, CBC #### [address] MCH [Entitic mass] by Automa darvin countOrdered By: Gabino Parker on 05-30-2023 MCH (RBC) [Entitic mass] 30.5 pg Normal 24.7-34.3 [facility] Comment on above: Performed By: #### H EPATIC, MG, LIPASE, CMP, CBC #### [address] MCHC Auto (RBC) [Mass/Vol]Or dered By: Gabino Parker on 05-30-2023 MCHC (RBC) [Mass/Vol] 33.8 g/dL 32.0-35.0 [facility] MCV [Entitic volume] by Auto mated countOrdered By: Gabino Parker on 05-30-2023 MCV (RBC) [Entitic vol] 90.3 fL Normal 80-100 [facility] Comment on above: Performed By: #### H EPATIC, MG, LIPASE, CMP, CBC #### [address] Magnesium [Mass/volume] in S elder or PlasmaOrdered By: Gabino Parker on 05-30-2023 Magnesium [Mass/Vol] 2.1 mg/dL Normal 1.9-2.7 [facility] Comment on above: Performed By: #### H EPATIC, MG, LIPASE, CMP, CBC #### [address] Monocyte distribution width [Entitic volume] in Blood by AutomatedOrdered By: Gabino aPrker on 05-30-2023 Monocyte distribution width Auto (Bld) [Entitic vol] 16.47 % 0.00-20.00 [facility] Neutrophils [#/volume] in Bl ood by Automated countOrdered By: Gabino Parker on 05-30-2023 Neutrophils (Bld) [#/Vol] 6.9 10*3/uL Normal 1.8-7.7 [facility] Comment on above: Performed By: #### H EPATIC, MG, LIPASE, CMP, CBC #### [facility] [address] [place] [address] Nitrite Test strip Ql (U)Ord ered By: Gabino Parker on 05-30-2023 Nitrite Ql (U) Negative Negative [facility] No Panel InformationOrdered By: Gabino Parker on 05-30-2023 Estimated GFR (CKD-EPI) > 60.0 mL/Min [facility] Creatinine Clearance (Chem 118.42 [facility] Nucleated erythrocytes [Pres ence] in Blood by Automated countOrdered By: Gabino Parker on 05-30-2023 Nucleated RBC Auto Ql (Bld) 0.1 /100{WBC} 0-0.5 [facility] Platelet mean volume [Entiti c volume] in Blood by Automated countOrdered By: Gabino aPrker on 05-30-2023 Platelet mean volume (Bld) [Entitic vol] 9.5 fL Normal 6.3-10.7 [facility] Comment on above: Performed By: #### H EPATIC, MG, LIPASE, CMP, CBC #### [facility] [address] [place] [address] [place] Platelets [#/volume] in Bloo d by Automated countOrdered By: Gabino Parker on 05-30-2023 Platelets (Bld) [#/Vol] 270 10*3/uL Normal 150-450 [facility] Comment on above: Performed By: #### H EPATIC, MG, LIPASE, CMP, CBC #### [facility] [address] [place] [address] [place] Potassium [Moles/volume] in Serum or PlasmaOrdered By: Gabino Parker on 05-30-2023 Potassium [Moles/Vol] 4.0 mmol/L Normal 3.5-5.1 [facility] Comment on above: Performed By: #### H EPATIC, MG, LIPASE, CMP, CBC #### [address] Protein Auto test strip (U) [Mass/Vol]Ordered By: Gabino Parker on 05-30-2023 Protein (U) [Mass/Vol] Negative Negative [facility] Protein [Mass/volume] in Ser um or PlasmaOrdered By: Gabino Parker on 05-30-2023 Protein [Mass/Vol] 7.2 g/dL Normal 6.4-8.9 [facility] Comment on above: Performed By: #### H EPATIC, MG, LIPASE, CMP, CBC #### [address] Serum globulin measurement b y calculation (mass/volume)Ordered By: Gabino Parker on 05-30-2023 Globulin (S) [Mass/Vol] 3.1 g/dL Normal [facility] Comment on above: Performed By: #### H EPATIC, MG, LIPASE, CMP, CBC #### [address] Serum or plasma albumin/glob ulin mass ratioOrdered By: Gabino Parker on 05-30-2023 Albumin/Globulin [Mass ratio] 1.3 {ratio} [facility] Comment on above: Performed By: #### H EPATIC, MG, LIPASE, CMP, CBC #### [address] Serum or plasma anion gap de terminationOrdered By: Gabino Parker on 05-30-2023 Anion gap [Moles/Vol] 12.3 mmol/L Normal 6.0-15.0 [facility] Comment on above: Performed By: #### H EPATIC, MG, LIPASE, CMP, CBC #### [address] Serum or plasma non-glucuron idated bilirubin measurement (mass/volume)Ordered By: Gabino Parker on 05-30-2023 Bilirubin.indirect [Mass/Vol] 0.3 mg/dL [facility] Sodium [Moles/volume] in Ser um or PlasmaOrdered By: Gabino Parker on 05-30-2023 Sodium [Moles/Vol] 139 mmol/L Normal 136-145 [facility] Comment on above: Performed By: #### H EPATIC, MG, LIPASE, CMP, CBC #### [facility] [address] [place] [address] Specific gravity Auto test s trip (U) [Rel density]Ordered By: Gabino Parker on 05-30-2023 Specific gravity (U) [Rel density] 1.011 1.001-1.030 [facility] Squamous epithelial cells de tection in urine sediment by light microscopyOrdered By: Gabino Parker on 05-30-2023 Epithelial cells.squamous LM Ql (Urine sed) 0-1 [HPF] 0-2 [facility] Urea nitrogen [Mass/volume] in Serum or PlasmaOrdered By: Gabino Parker on 05-30-2023 Urea nitrogen [Mass/Vol] 6 mg/dL Low 7-25 [facility] Comment on above: Performed By: #### H EPATIC, MG, LIPASE, CMP, CBC #### [facility] [address] [place] [address] Urine Cultureon 05-30-2023 Bacteria identified Cx Nom (U) 75,000 colonies/ml mixed bacterial skin contaminants 2 Days PERFORMED BY: [place] [address] PATHOLOGIST FINISHING [employer] RUNNER BAUTISTA BAKER M.D. Normal [facility] Comment on above: Performed By: #### A CORY, UHCG, CUU #### [address] Urine bacteria detection by automated methodOrdered By: Gabino Parker on 05-30-2023 Bacteria Auto Ql (U) None seen None Seen [facility] Urine clarity by refractomet ry automatedOrdered By: Gabino Parker on 05-30-2023 Clarity Refractometry automated (U) Clear Clear [facility] Urine culture routineOrdered By: Gabino Parker on 05-30-2023 Bacteria identified Cx Nom (U) 2 Days [facility] Urine glucose measurement by automated test strip (mass/volume)Ordered By: Gabino Parker on 05-30-2023 Glucose Auto test strip (U) [Mass/Vol] Normal mg/dL Normal [facility] Urine hemoglobin detection b y automated test stripOrdered By: Gabino Parker on 05-30-2023 Hemoglobin Auto test strip Ql (U) Negative Negative [facility] Urine leukocyte esterase det ection by automated test stripOrdered By: Gabino Parker on 05-30-2023 Leukocyte esterase Auto test strip Ql (U) 1+ High Negative [facility] Urine pH measurement by auto mated test stripOrdered By: Gabino Parker on 05-30-2023 pH (U) [pH] Normal 5.0-9.0 [facility] Comment on above: Order Comment: Name Collection Type:: Clean-Voided Midstream Performed By: #### A DDONUAPLUS, UHCG, CUU #### [facility] [address] Urobilinogen Auto test strip (U) [Mass/Vol]Ordered By: Gabino Parker on 05-30-2023 Urobilinogen (U) [Mass/Vol] Normal mg/dL Normal [facility] Basic metabolic 2000 panelon 05-28-2023 Anion gap [Moles/Vol] 10 mmol/L Normal 9-18 [facility] Comment on above: Order Comment: Speci men Type: BLOOD SPECIMENOrdering Facility: [facility] Address: [address] [place] [address] Performed By: #### 1 9123-9, 2777-1, 84257-5 ####[facility]ORATORYCLIA [id number] [place] [address] [place] Calcium [Mass/Vol] 8.5 mg/dL Normal 8.5-10.2 [facility] Comment on above: Order Comment: Speci men Type: BLOOD SPECIMENOrdering Facility: [facility] Address: [address] [place] [address] Performed By: #### 1 9123-9, 2777-1, 14302-9 ####[facility] LABORATORYCLIA [id number] [place] [id number] [place] Chloride [Moles/Vol] 105 mmol/L Normal 97-105 [facility] Comment on above: Order Comment: Speci men Type: BLOOD SPECIMENOrdering Facility: [facility] Address: [address] [place] [address] Performed By: #### 1 9123-9, 2777-, 34490-4 ####[facility] LABORATORYCLIA [id number] [place] [id number] [place] CO2 [Moles/Vol] 24 mmol/L Normal 22-30 [facility] Comment on above: Order Comment: Speci men Type: BLOOD SPECIMENOrdering Facility: [facility] Address: [address] [place] [address] Performed By: #### 1 9123-9, 2777-, 62406-6 ####[facility]ORATORYCLIA [id number] [place] [address] [place] Creatinine [Mass/Vol] 0.52 mg/dL Low 0.58-0.96 [facility] Comment on above: Order Comment: Speci men Type: BLOOD SPECIMENOrdering Facility: [facility] Address: [address] [place] [address] Performed By: #### 1 9123-9, 2777-, 10312-3 ####[facility] LABORATORYCLIA [id number] [place] [id number] [facility] Creatinine and Glomerular filtration rate.predicted panel (S/P/Bld) 125 mL/min/1.73m??? Normal >=60 [facility] Comment on above: Order Comment: Speci men Type: BLOOD SPECIMENOrdering Facility: [facility] Address: [address] [place] [address] Result Comment: Jessica mated Glomerular Filtration Rate [...] GFR. Performed By: #### 1 9123-9, 2777-, 06890-0 ####[facility] LABORATORYCLIA [id number] [place] [address] [place] Glucose [Mass/Vol] 77 mg/dL Normal 74-99 [facility] Comment on above: Order Comment: Geraldo marrero Type: BLOOD SPECIMENOrdering Facility: [facility] Address: [address] [place] [address] Result Comment: The [place] Diabetes Association (ADA) provides guidance for cutoff [...] Standards of Medical Care in Diabetes 2016, [place] [employer]. Diabetes Care. 2016.39(Suppl 1). Performed By: #### 1 9123-9, 27708-15, 73110-7 ####[facility] LABORATORYCLIA [id number] [place] [address] [place] Potassium [Moles/Vol] 4.2 mmol/L Normal 3.7-5.1 [facility] Comment on above: Order Comment: Geraldo marrero Type: BLOOD SPECIMENOrdering Facility: [facility] Address: [address] [place] [id number] Performed By: #### 1 9123-9, 2777, 39504-5 ####[facility] LABORATORYCLIA [id number] [place] [address] [place] Sodium [Moles/Vol] 139 mmol/L Normal 136-144 [facility] Comment on above: Order Comment: Speci men Type: BLOOD SPECIMENOrdering Facility: [facility] Address: [address] [place] [address] Performed By: #### 1 9123-9, 2777-1, 79194-0 ####[facility] LABORATORYCLIA [id number] [place] [address] [place] Urea nitrogen [Mass/Vol] 8 mg/dL Normal 7-21 [facility] Comment on above: Order Comment: Speci men Type: BLOOD SPECIMENOrdering Facility: [facility] Address: [address] [place] [address] Performed By: #### 1 9123-9, 2777, 63839-4 ####[facility] LABORATORYCLIA [id number] [address] [place] CBC panel Auto (Bld)on 05-27 Erythrocyte distribution width (RBC) [Ratio] 13.7 % Normal 11.5-15.0 [facility] Comment on above: Order Comment: Speci men Type: BLOOD SPECIMENOrdering Facility: [facility] Address: [address] [place] [address] Performed By: #### 5 8410-2 ####[facility] LABORATORYCLIA [id number] [place] [address] [place] Hematocrit (Bld) [Volume fraction] 31.5 % Low 36.0-46.0 [facility] Comment on above: Order Comment: Speci men Type: BLOOD SPECIMENOrdering Facility: [facility] Address: [address] [place] [address] Performed By: #### 5 8410-2 ####[facility] LABORATORYCLIA [id number] [place] [id number] [place] Hemoglobin (Bld) [Mass/Vol] 11.1 g/dL Low 11.5-15.5 [facility] Comment on above: Order Comment: Speci men Type: BLOOD SPECIMENOrdering Facility: [facility] Address: [address] [place] [address] Performed By: #### 5 8410-2 ####[facility] LABORATORYCLIA [id number] [address] [place] [facility] MCH (RBC) [Entitic mass] 31.4 pg Normal 26.0-34.0 [facility] Comment on above: Order Comment: Speci men Type: BLOOD SPECIMENOrdering Facility: [facility] Address: [address] [place] [address] Performed By: #### 5 8410-2 ####[facility] LABORATORYCLIA [id number] [address] [place] [facility] MCHC (RBC) [Mass/Vol] 35.2 g/dL Normal 30.5-36.0 [facility] Comment on above: Order Comment: Speci men Type: BLOOD SPECIMENOrdering Facility: [facility] Address: [address] [place] [address] Performed By: #### 5 8410-2 ####[facility] LABORATORYCLIA [id number] [address] [place] MCV (RBC) [Entitic vol] 89.2 fL Normal 80.0-100.0 [facility] Comment on above: Order Comment: Speci men Type: BLOOD SPECIMENOrdering Facility: [facility] Address: [address] [place] [address] Performed By: #### 5 8410-2 ####[facility] LABORATORYCLIA [id number] [address] [place] Nucleated RBC (Bld) [#/Vol] 10*3/uL Normal <0.01 [facility] Comment on above: Order Comment: Speci men Type: BLOOD SPECIMENOrdering Facility: [facility] Address: [address] [place] [address] Performed By: #### 5 8410-2 ####[facility] LABORATORYCLIA [id number] [address] Platelet mean volume (Bld) [Entitic vol] 11.8 fL Normal 9.0-12.7 [facility] Comment on above: Order Comment: Speci men Type: BLOOD SPECIMENOrdering Facility: [facility] Address: [address] [place], [place] [address] Performed By: #### 5 8410-2 ####[facility]ORATORYCLIA [id number] [place] [id number] [facility] [place] Platelets (Bld) [#/Vol] 199 10*3/uL Normal 150-400 [facility] [facility] Comment on above: Order Comment: Speci men Type: BLOOD SPECIMENOrdering Facility: [facility] Address: [address] [place] [address] Performed By: #### 5 8410-2 ####[facility] LABORATORYCLIA [id number] [place] [address] [place] RBC (Bld) [#/Vol] 3.53 10*6/uL Low 3.90-5.20 [facility] Comment on above: Order Comment: Speci men Type: BLOOD SPECIMENOrdering Facility: [facility] Address: [address] [place] [address] Performed By: #### 5 8410-2 ####[facility] LABORATORYCLIA [id number] [place] [address] [place] WBC (Bld) [#/Vol] 6.24 10*3/uL Normal 3.70-11.00 [facility] Comment on above: Order Comment: Speci men Type: BLOOD SPECIMENOrdering Facility: [facility] Address: [address] [place] [address] Performed By: #### 5 8410-2 ####[facility] LABORATORYCLIA [id number] [place] [address] [place] CNCOon 05-28-2023 CNCO Letter Text Normal [facility] CNDSon 05-28-2023 CNDS Normal [facility] CNPNon 05-28-2023 CNPN Normal [facility] Magnesium SerPl-mCncon 05-27 Magnesium [Mass/Vol] 1.9 mg/dL Normal 1.7-2.3 [facility] Comment on above: Order Comment: Speci men Type: BLOOD SPECIMENOrdering Facility: [facility] Address: [address] [place] [address] Performed By: #### 1 9123-9, 2777-1, 79717-7 ####[facility] LABORATORYCLIA [id number] [place] [address] [facility] [place] NURSING PROGon 05-28-2023 NURSING PROG Normal [facility] Phosphate SerPl-mCncon 05-27 Phosphate [Mass/Vol] 2.3 mg/dL Low 2.7-4.8 [facility] Comment on above: Order Comment: Speci men Type: BLOOD SPECIMENOrdering Facility: [facility] Address: [address] [place] [address] Performed By: #### 1 9123-9, 277-1, 33367-1 ####[facility] LABORATORYCLIA [id number] [place] [address] [facility] Basic metabolic 2000 panelon 05-27-2023 Anion gap [Moles/Vol] 10 mmol/L Normal 9-18 [facility] Comment on above: Order Comment: Speci men Type: BLOOD SPECIMENOrdering Facility: [facility] Address: [address] [place] [address] Performed By: #### 2 777-1, 17372-6, ####[facility] LABORATORYCLIA [id number] [place] [address] [place] Calcium [Mass/Vol] 8.9 mg/dL Normal 8.5-10.2 [facility] Comment on above: Order Comment: Speci men Type: BLOOD SPECIMENOrdering Facility: [facility] Address: [address] [place] [address] Performed By: #### 2 777-1, 49569-9, ####[facility] LABORATORYCLIA [id number] [place] [address] [place] Chloride [Moles/Vol] 104 mmol/L Normal 97-105 [facility] Comment on above: Order Comment: Speci men Type: BLOOD SPECIMENOrdering Facility: [facility] Address: [address] [place] [address] Performed By: #### 2 777-1, 26333-6, ####[facility] LABORATORYCLIA [id number] [place] [address] [place] CO2 [Moles/Vol] 25 mmol/L Normal 22-30 [facility] Comment on above: Order Comment: Speci men Type: BLOOD SPECIMENOrdering Facility: [facility] Address: [address] [place] [address] Performed By: #### 2 777-1, 16280-9, ####[facility] LABORATORYCLIA [id number] [place] [address] [place] Creatinine [Mass/Vol] 0.57 mg/dL Low 0.58-0.96 [facility] Comment on above: Order Comment: Speci men Type: BLOOD SPECIMENOrdering Facility: [facility] Address: [address] [place] [address] Performed By: #### 2 777-1, 61542-0, ####[facility] LABORATORYCLIA [id number] [address] STATES [facility] Creatinine and Glomerular filtration rate.predicted panel (S/P/Bld) 122 mL/min/1.73m??? Normal >=60 [facility] Comment on above: Order Comment: Speci elida Type: BLOOD SPECIMENOrdering Facility: [facility] Address: [address] [place] [address] Result Comment: Jessica mated Glomerular Filtration Rate [...] actual GFR. Performed By: #### 2 777-1, 23156-8, ####[facility] LABORATORYCLIA [id number] [place] [address] [place] Glucose [Mass/Vol] 101 mg/dL High 74-99 [facility] Comment on above: Order Comment: Speci men Type: BLOOD SPECIMENOrdering Facility: [facility] Address: [address] [place] [id number] Result Comment: The [place] [employer] (ADA) provides guidance for cutoff [...] Standards of Medical Care in Diabetes 2016, [place] [employer]. Diabetes Care. 2016.39(Suppl 1). Performed By: #### 2 777-1, 37048-1, ####[facility] LABORATORYCLIA [id number] [place] [address] [place] Potassium [Moles/Vol] 4.0 mmol/L Normal 3.7-5.1 [facility] Comment on above: Order Comment: Speci men Type: BLOOD SPECIMENOrdering Facility: [facility] Address: [address] [place] [address] Performed By: #### 2 777-1, , ####[facility] LABORATORYCLIA [id number] [place] [address] [place] Sodium [Moles/Vol] 139 mmol/L Normal 136-144 [facility] Comment on above: Order Comment: Speci men Type: BLOOD SPECIMENOrdering Facility: [facility] Address: [address] [place] [address] Performed By: #### 2 777-1, , ####[facility] LABORATORYCLIA [id number] [place] [address] [place] Urea nitrogen [Mass/Vol] 6 mg/dL Low 7-21 [facility] Comment on above: Order Comment: Speci men Type: BLOOD SPECIMENOrdering Facility: [facility] Address: [address] [place] [address] Performed By: #### 2 777-1, 26965-2, 55594-1 ####[facility] LABORATORYCLIA [id number] [place] [address] [place] CASE MANAGEMon 05-27-2023 CASE MANAGEM Normal [facility] CBC panel Auto (Bld)on 05-26 Erythrocyte distribution width (RBC) [Ratio] 13.5 % Normal 11.5-15.0 [facility] Comment on above: Order Comment: Speci men Type: BLOOD SPECIMENOrdering Facility: [facility] Address: [address] [place] [address] Performed By: #### 5 8410-2 ####[facility] LABORATORYCLIA [id number] [address] Hematocrit (Bld) [Volume fraction] 36.5 % Normal 36.0-46.0 [facility] Comment on above: Order Comment: Speci men Type: BLOOD SPECIMENOrdering Facility: [facility] Address: [address] [place] [address] Performed By: #### 5 8410-2 ####[facility] LABORATORYCLIA [id number] [address] [place] Hemoglobin (Bld) [Mass/Vol] 12.8 g/dL Normal 11.5-15.5 [facility] Comment on above: Order Comment: Speci men Type: BLOOD SPECIMENOrdering Facility: [facility] Address: [address] [place] [address] Performed By: #### 5 8410-2 ####[facility] LABORATORYCLIA [id number] [place] [address] [place] MCH (RBC) [Entitic mass] 30.9 pg Normal 26.0-34.0 [facility] Comment on above: Order Comment: Speci men Type: BLOOD SPECIMENOrdering Facility: [facility] Address: [address] [place] [address] Performed By: #### 5 8410-2 ####[facility] LABORATORYCLIA [id number] [place] [address] MCHC (RBC) [Mass/Vol] 35.1 g/dL Normal 30.5-36.0 [facility] Comment on above: Order Comment: Speci men Type: BLOOD SPECIMENOrdering Facility: [facility] Address: [address] [place] [address] Performed By: #### 5 8410-2 ####[facility] LABORATORYCLIA [id number] [address] [place] MCV (RBC) [Entitic vol] 88.2 fL Normal 80.0-100.0 [facility] Comment on above: Order Comment: Speci men Type: BLOOD SPECIMENOrdering Facility: [facility] Address: [address] [place] [address] Performed By: #### 5 8410-2 ####[facility] LABORATORYCLIA [id number] [address] [place] Nucleated RBC (Bld) [#/Vol] 10*3/uL Normal <0.01 [facility] Comment on above: Order Comment: Speci men Type: BLOOD SPECIMENOrdering Facility: [facility] Address: [address] [place] [address] Performed By: #### 5 8410-2 ####[facility] LABORATORYCLIA [id number] [address] [place] Platelet mean volume (Bld) [Entitic vol] 11.5 fL Normal 9.0-12.7 [facility] Comment on above: Order Comment: Speci men Type: BLOOD SPECIMENOrdering Facility: [facility] Address: [address] [place] [address] Performed By: #### 5 8410-2 ####[facility] LABORATORYCLIA [id number] [place] [address] [place] Platelets (Bld) [#/Vol] 205 10*3/uL Normal 150-400 [facility] Comment on above: Order Comment: Speci men Type: BLOOD SPECIMENOrdering Facility: [facility] Address: [address] [place] [address] Performed By: #### 5 8410-2 ####[facility] LABORATORYCLIA [id number] [place] [address] [place] RBC (Bld) [#/Vol] 4.14 10*6/uL Normal 3.90-5.20 [facility] Comment on above: Order Comment: Speci men Type: BLOOD SPECIMENOrdering Facility: [facility] Address: [address] [place] [address] Performed By: #### 5 8410-2 ####[facility] LABORATORYCLIA [id number] [place] [address] [place] WBC (Bld) [#/Vol] 6.24 10*3/uL Normal 3.70-11.00 [facility] Comment on above: Order Comment: Speci men Type: BLOOD SPECIMENOrdering Facility: [facility] Address: [address] [place] [address] Performed By: #### 5 8410-2 ####[facility] LABORATORYCLIA [id number] [address] [place] Magnesium SerPl-mCncon 05-26 Magnesium [Mass/Vol] 1.8 mg/dL Normal 1.7-2.3 [facility] Comment on above: Order Comment: Speci men Type: BLOOD SPECIMENOrdering Facility: [facility] Address: [address] [place] [address] Performed By: #### 2 777-1, 13579-5, ####[facility] LABORATORYCLIA [id number] [place] [address] [place] NURSING PROGon 05-27-2023 NURSING PROG Normal [facility] NUTRITIONon 05-27-2023 NUTRITION Normal [facility] Phosphate SerPl-mCncon 05-26 Phosphate [Mass/Vol] 2.4 mg/dL Low 2.7-4.8 [facility] Comment on above: Order Comment: Speci men Type: BLOOD SPECIMENOrdering Facility: [facility] Address: [address] [place] [address] Performed By: #### 2 777-1, 27103-1, ####[facility] LABORATORYCLIA [id number] [place] [address] [place] ALLIED HEALTHon 05-26-2023 ALLIED HEALTH Normal [facility] Basic metabolic 2000 panelon 05-26-2023 Anion gap [Moles/Vol] 13 mmol/L Normal 9-18 [facility] Comment on above: Order Comment: Speci men Type: BLOOD SPECIMENOrdering Facility: [facility] Address: [address] [place] [address] Performed By: #### 2 4321-2, , 2776-02 ####[facility] LABORATORYCLIA [id number] [place] [address] [place] Calcium [Mass/Vol] 9.0 mg/dL Normal 8.5-10.2 [facility] Comment on above: Order Comment: Speci men Type: BLOOD SPECIMENOrdering Facility: [facility] Address: [address] [place] [address] Performed By: #### 2 4320-2, , 2776-02 ####[facility] LABORATORYCLIA [id number] [place] [address] [place] Chloride [Moles/Vol] 103 mmol/L Normal 97-105 [facility] Comment on above: Order Comment: Speci men Type: BLOOD SPECIMENOrdering Facility: [facility] Address: [address] [place] [address] Performed By: #### 2 4320-2, , 2776-02 ####[facility] LABORATORYCLIA [id number] [place] [address] [place] CO2 [Moles/Vol] 20 mmol/L Low 22-30 [facility] Comment on above: Order Comment: Speci men Type: BLOOD SPECIMENOrdering Facility: [facility] Address: [address] [place] [address] Performed By: #### 2 4321-2, , 2776-02 ####[facility] LABORATORYCLIA [id number] [place] [address] [place] Creatinine [Mass/Vol] 0.68 mg/dL Normal 0.58-0.96 [facility] Comment on above: Order Comment: Geraldo marrero Type: BLOOD SPECIMENOrdering Facility: [facility] Address: [address] [place] [address] Performed By: #### 2 4321-2, , 2776-02 ####[facility] LABORATORYCLIA [id number] [place] [address] [place] Creatinine and Glomerular filtration rate.predicted panel (S/P/Bld) 117 mL/min/1.73m??? Normal >=60 [facility] Comment on above: Order Comment: Geraldo marrero Type: BLOOD SPECIMENOrdering Facility: [facility] Address: [address] [place] [address] Result Comment: Jessica mated Glomerular Filtration Rate [...] Performed By: #### 2 4321-2, , 2776-02 ####[facility] LABORATORYCLIA [id number] [place] [address] [place] Glucose [Mass/Vol] 71 mg/dL Low 74-99 [facility] Comment on above: Order Comment: Geraldo marrero Type: BLOOD SPECIMENOrdering Facility: [facility] Address: [address] [place] [address] Result Comment: The [place] Diabetes [employer] (ADA) provides guidance for cutoff [...] Standards of Medical Care in Diabetes 2016, [place] [employer]. Diabetes Care. 2016.39(Suppl 1). Performed By: #### 2 4321-2, , 2776-02 ####[facility] LABORATORYCLIA [id number] [place] [address] [place] Potassium [Moles/Vol] 4.3 mmol/L Normal 3.7-5.1 [facility] Comment on above: Order Comment: Speci men Type: BLOOD SPECIMENOrdering Facility: [facility] Address: [address] [place], [place] [address] Performed By: #### 2 4321-2, , 2776-02 ####[facility] LABORATORYCLIA [id number] [place] [address] [place] Sodium [Moles/Vol] 136 mmol/L Normal 136-144 [facility] Comment on above: Order Comment: Speci men Type: BLOOD SPECIMENOrdering Facility: [facility] Address: [address] [place] [address] Performed By: #### 2 4321-2, , 2776-02 ####[facility] LABORATORYCLIA [id number] [place] [address] [place] Urea nitrogen [Mass/Vol] 10 mg/dL Normal 7-21 [facility] Comment on above: Order Comment: Speci men Type: BLOOD SPECIMENOrdering Facility: [facility] Address: [address] [place], [place] [address] Performed By: #### 2 4321-2, , 2776-02 ####[facility] LABORATORYCLIA [id number] [place] [address] [place] CASE MGT INIT ASSESon 2023 CASE MGT INIT ASSES Normal [facility] CBC panel Auto (Bld)on 05-25 Erythrocyte distribution width (RBC) [Ratio] 13.3 % Normal 11.5-15.0 [facility] Comment on above: Order Comment: Speci men Type: BLOOD SPECIMENOrdering Facility: [facility] Address: [address] [place] [address] Performed By: #### 5 8410-2 ####[facility] LABORATORYCLIA [id number] [place] [address] [place] Hematocrit (Bld) [Volume fraction] 33.8 % Low 36.0-46.0 [facility] Comment on above: Order Comment: Speci men Type: BLOOD SPECIMENOrdering Facility: [facility] Address: [address] [place] [address] Performed By: #### 5 8410-2 ####[facility] LABORATORYCLIA [id number] [place] [address] [place] Hemoglobin (Bld) [Mass/Vol] 11.5 g/dL Normal 11.5-15.5 [facility] Comment on above: Order Comment: Speci men Type: BLOOD SPECIMENOrdering Facility: [facility] Address: [address] [place] [address] Performed By: #### 5 8410-2 ####[facility] LABORATORYCLIA [id number] [address] [place] MCH (RBC) [Entitic mass] 30.5 pg Normal 26.0-34.0 [facility] Comment on above: Order Comment: Speci men Type: BLOOD SPECIMENOrdering Facility: [facility] Address: [address] [place] [address] Performed By: #### 5 8410-2 ####[facility] LABORATORYCLIA [id number] [place] [address] [place] MCHC (RBC) [Mass/Vol] 34.0 g/dL Normal 30.5-36.0 [facility] Comment on above: Order Comment: Speci men Type: BLOOD SPECIMENOrdering Facility: [facility] Address: [address] [place] [address] Performed By: #### 5 8410-2 ####[facility] LABORATORYCLIA [id number] [address] [place] MCV (RBC) [Entitic vol] 89.7 fL Normal 80.0-100.0 [facility] Comment on above: Order Comment: Speci men Type: BLOOD SPECIMENOrdering Facility: [facility] Address: [address] [place] [address] Performed By: #### 5 8410-2 ####[facility] LABORATORYCLIA [id number] [place] [address] [place] Nucleated RBC (Bld) [#/Vol] 10*3/uL Normal <0.01 [facility] Comment on above: Order Comment: Speci men Type: BLOOD SPECIMENOrdering Facility: [facility] Address: [address] [place] [address] Performed By: #### 5 8410-2 ####[facility] LABORATORYCLIA [id number] [place] [address] [place] Platelet mean volume (Bld) [Entitic vol] 11.7 fL Normal 9.0-12.7 [facility] Comment on above: Order Comment: Speci men Type: BLOOD SPECIMENOrdering Facility: [facility] Address: [address] [place] [address] Performed By: #### 5 8410-2 ####[facility] LABORATORYCLIA [id number] [place] [address] [place] Platelets (Bld) [#/Vol] 181 10*3/uL Normal 150-400 [facility] Comment on above: Order Comment: Speci men Type: BLOOD SPECIMENOrdering Facility: [facility] Address: [address] [place] [address] Performed By: #### 5 8410-2 ####[facility] LABORATORYCLIA [id number] [place] [address] [place] RBC (Bld) [#/Vol] 3.77 10*6/uL Low 3.90-5.20 [facility] Comment on above: Order Comment: Speci men Type: BLOOD SPECIMENOrdering Facility: [facility] Address: [address] [place] [address] Performed By: #### 5 8410-2 ####[facility] LABORATORYCLIA [id number] [place] [address] [place] WBC (Bld) [#/Vol] 5.34 10*3/uL Normal 3.70-11.00 [facility] Comment on above: Order Comment: Speci men Type: BLOOD SPECIMENOrdering Facility: [facility] Address: [address] [place] [address] Performed By: #### 5 8410-2 ####[facility] LABORATORYCLIA [id number] [place] [address] [place] Magnesium SerPl[facility] Magnesium [Mass/Vol] 1.6 mg/dL Low 1.7-2.3 [facility] Comment on above: Order Comment: Speci men Type: BLOOD SPECIMENOrdering Facility: [facility] Address: [address] [place] [address] Performed By: #### 2 4321-2, 93759-7, 2777-1 ####[facility] LABORATORYCLIA [id number] [place] [address] [place] NUTRITIONon 05-26-2023 NUTRITION Normal [facility] Phosphate SerPl-ncon 05-25 Phosphate [Mass/Vol] 4.5 mg/dL Normal 2.7-4.8 [facility] Comment on above: Order Comment: Speci men Type: BLOOD SPECIMENOrdering Facility: [facility] Address: [address] [place] [address] Performed By: #### 2 4321-2, 35269-1, 2777-1 ####[facility] LABORATORYCLIA [id number] [place] [address] [place] XR ABDOMEN 1V SUPINEon 05-25 XR ABDOMEN 1V SUPINE Normal [facility] ANES POSTPROC EVALon 024 ANES POSTPROC EVAL Normal [facility] ANES PRE-OPon 05-25-2023 ANES PRE-OP Normal [facility] HISTORY PHYSICALon 4 HISTORY PHYSICAL Normal [facility] NURSING PROGon 05-25-2023 NURSING PROG Normal [facility] NURSING PROG Normal [facility] Upper GI endoscopyon 024 Upper GI endoscopy Normal [facility] CNPNon 05-24-2023 CNPN Normal [facility] Home Health Recordson 2023 Home Health Records [id number] [id number] Normal [facility] Basic metabolic 2000 panelon 05-22-2023 Anion gap [Moles/Vol] 10 mmol/L Normal 9-18 [facility] Comment on above: Order Comment: Speci men Type: BLOOD SPECIMENOrdering Facility: [facility] Address: [address] [place] [address] Performed By: #### 2 4321-2, , 2776-02 ####[facility] LABORATORYCLIA [id number] [place] [address] [place] Calcium [Mass/Vol] 8.9 mg/dL Normal 8.5-10.2 [facility] Comment on above: Order Comment: Speci men Type: BLOOD SPECIMENOrdering Facility: [facility] Address: [address] [place] [address] Performed By: #### 2 4321-2, , 2776-02 ####[facility] LABORATORYCLIA [id number] [place] [address] [place] Chloride [Moles/Vol] 110 mmol/L High 97-105 [facility] Comment on above: Order Comment: Speci men Type: BLOOD SPECIMENOrdering Facility: [facility] Address: [address] [place] [address] Performed By: #### 2 4321-2, , 2776-02 ####[facility] LABORATORYCLIA [id number] [place] [address] [place] CO2 [Moles/Vol] 23 mmol/L Normal 22-30 [facility] Comment on above: Order Comment: Speci men Type: BLOOD SPECIMENOrdering Facility: [facility] Address: [address] [place] [address] Performed By: #### 2 4321-2, , 2776-02 ####[facility] LABORATORYCLIA [id number] [place] [address] [place] Creatinine [Mass/Vol] 0.73 mg/dL Normal 0.58-0.96 [facility] Comment on above: Order Comment: Geraldo marrero Type: BLOOD SPECIMENOrdering Facility: [facility] Address: [address] [place] [address] Performed By: #### 2 4321-2, , 2776-02 ####[facility] LABORATORYCLIA [id number] [place] [address] [facility] Creatinine and Glomerular filtration rate.predicted panel (S/P/Bld) 111 mL/min/1.73m??? Normal >=60 [facility] Comment on above: Order Comment: Geraldo marrero Type: BLOOD SPECIMENOrdering Facility: [facility] Address: [address] [place] [address] Result Comment: Jessica mated Glomerular Filtration Rate [...] Performed By: #### 2 4321-2, , 2776-02 ####[facility] LABORATORYCLIA [id number] [place] [address] [place] Glucose [Mass/Vol] 73 mg/dL Low 74-99 [facility] Comment on above: Order Comment: Geraldo marrero Type: BLOOD SPECIMENOrdering Facility: [facility] Address: [address] [place] [address] Result Comment: The [place] [employer] (ADA) provides guidance for cutoff [...] Standards of Medical Care in Diabetes 2016, [place] [employer]. Diabetes Care. 2016.39(Suppl 1). Performed By: #### 2 4321-2, , 2776-02 ####[facility] LABORATORYCLIA [id number] [place] [address] [place] Potassium [Moles/Vol] 3.7 mmol/L Normal 3.7-5.1 [facility] Comment on above: Order Comment: Geraldo marrero Type: BLOOD SPECIMENOrdering Facility: [facility] Address: [address] [place] [address] Performed By: #### 2 4321-2, , 2776-02 ####[facility] LABORATORYCLIA [id number] [place] [address] [place] Sodium [Moles/Vol] 143 mmol/L Normal 136-144 [facility] Comment on above: Order Comment: Geraldo marrero Type: BLOOD SPECIMENOrdering Facility: [facility] Address: [address] [place] [address] Performed By: #### 2 4321-2, , 2776-02 ####[facility] LABORATORYCLIA [id number] [place] [address] [place] Urea nitrogen [Mass/Vol] 6 mg/dL Low 7-21 [facility] Comment on above: Order Comment: Geraldo marrero Type: BLOOD SPECIMENOrdering Facility: [facility] Address: [address] [place] [address] Performed By: #### 2 4321-2, , 2776-02 ####[facility] LABORATORYCLIA [id number] [place] [address] [place] CASE MANAGEMon 05-22-2023 CASE MANAGEM Normal [facility] CNDSon 05-22-2023 CNDS Normal [facility] Magnesium SerPl-mCncon 05-21 Magnesium [Mass/Vol] 1.9 mg/dL Normal 1.7-2.3 [facility] Comment on above: Order Comment: Speci men Type: BLOOD SPECIMENOrdering Facility: [facility] Address: [facility] [place] [id number] Performed By: #### 2 4321-2, , 2776-02 ####[facility] LABORATORYCLIA [id number] [place] [address] [place] NUTRITIONon 05-22-2023 NUTRITION Normal [facility] Phosphate SerPl-mCncon 05-21 Phosphate [Mass/Vol] 4.3 mg/dL Normal 2.7-4.8 [facility] Comment on above: Order Comment: Speci men Type: BLOOD SPECIMENOrdering Facility: [facility] Address: [facility] [place] [address] Performed By: #### 2 4321-2, , 2776-02 ####[facility] LABORATORYCLIA [id number] [place] [address] [place] Basic metabolic 2000 panelon 05-21-2023 Anion gap [Moles/Vol] 12 mmol/L Normal 9-18 [facility] Comment on above: Order Comment: Speci men Type: BLOOD SPECIMENOrdering Facility: [facility] Address: [facility] [place] [id number] Performed By: #### 2 4321-2, , 2776-02 ####[facility] LABORATORYCLIA [id number] [place] [address] [place] Calcium [Mass/Vol] 8.8 mg/dL Normal 8.5-10.2 [facility] Comment on above: Order Comment: Speci men Type: BLOOD SPECIMENOrdering Facility: [facility] Address: [address] [place], [place] [address] Performed By: #### 2 4321-2, , 2776-02 ####[facility] LABORATORYCLIA [id number] [place] [address] [place] Chloride [Moles/Vol] 107 mmol/L High 97-105 [facility] Comment on above: Order Comment: Speci men Type: BLOOD SPECIMENOrdering Facility: [facility] Address: [address] [place], [place] [address] Performed By: #### 2 4321-2, , 2776-02 ####[facility] LABORATORYCLIA [id number] [place] [address] [facility] CO2 [Moles/Vol] 19 mmol/L Low 22-30 [facility] Comment on above: Order Comment: Speci men Type: BLOOD SPECIMENOrdering Facility: [facility] Address: [address] [place] [address] Performed By: #### 2 4321-2, , 2776-02 ####[facility] LABORATORYCLIA [id number] [place] [address] [facility] Creatinine [Mass/Vol] 0.72 mg/dL Normal 0.58-0.96 [facility] Comment on above: Order Comment: Speci men Type: BLOOD SPECIMENOrdering Facility: [facility] Address: [address] [place] [address] Performed By: #### 2 4321-2, , 2776-02 ####[facility] LABORATORYCLIA [id number] [address] Creatinine and Glomerular filtration rate.predicted panel (S/P/Bld) 113 mL/min/1.73m??? Normal >=60 [facility] Comment on above: Order Comment: Speci men Type: BLOOD SPECIMENOrdering Facility: [facility] Address: [address] [place] [address] Result Comment: Jessica mated Glomerular Filtration Rate [...] #### 2 4321-2, , 2776-02 ####[facility] LABORATORYCLIA [id number] [place] [address] [place] Glucose [Mass/Vol] 85 mg/dL Normal 74-99 [facility] Comment on above: Order Comment: Speci men Type: BLOOD SPECIMENOrdering Facility: [facility] Address: [address] [place] [address] Result Comment: The [place] Diabetes [employer] (ADA) provides guidance for cutoff [...] Standards of Medical Care in Diabetes 2016, [place] [employer]. Diabetes Care. 2016.39(Suppl 1). Performed By: #### 2 4321-2, , 2776-02 ####[facility] LABORATORYCLIA [id number] [place] [address] [place] Potassium [Moles/Vol] 3.8 mmol/L Normal 3.7-5.1 [facility] Comment on above: Order Comment: Speci men Type: BLOOD SPECIMENOrdering Facility: [facility] Address: [address] [place] [address] Performed By: #### 2 4321-2, , 2776-02 ####[facility] LABORATORYCLIA [id number] [place] [address] [place] Sodium [Moles/Vol] 138 mmol/L Normal 136-144 [facility] Comment on above: Order Comment: Speci men Type: BLOOD SPECIMENOrdering Facility: [facility] Address: [address] [place] [address] Performed By: #### 2 4321-2, , 2776-02 ####[facility] LABORATORYCLIA [id number] [place] [address] [place] Urea nitrogen [Mass/Vol] 5 mg/dL Low 7-21 [facility] Comment on above: Order Comment: Speci men Type: BLOOD SPECIMENOrdering Facility: [facility] Address: [facility] [place] [address] Performed By: #### 2 4321-2, , 2776-02 ####[facility] LABORATORYCLIA [id number] [place] [address] [facility] [place] CASE MANAGEMon 05-21-2023 CASE MANAGEM Normal [facility] CASE MANAGEM Normal [facility] CASE MGT [facility]23 [facility] Magnesium SerPl-mCncon 05-20 Magnesium [Mass/Vol] 1.9 mg/dL Normal 1.7-2.3 [facility] Comment on above: Order Comment: Speci men Type: BLOOD SPECIMENOrdering Facility: [facility] Address: [facility] [place] [id number] Performed By: #### 2 4321-2, , 2776-02 ####[facility] LABORATORYCLIA [id number] [place] [address] [place] NURSING PROGon 05-21-2023 NURSING PROG Normal [facility] Phosphate SerPl-mCncon 05-20 Phosphate [Mass/Vol] 4.1 mg/dL Normal 2.7-4.8 [facility] Comment on above: Order Comment: Speci men Type: BLOOD SPECIMENOrdering Facility: [facility] Address: [address] [place], [place] [address] Performed By: #### 2 4321-2, , 2776-02 ####[facility] LABORATORYCLIA [id number] [place] [address] [place] ALLIED HEALTHon 05-20-2023 ALLIED HEALTH Normal [facility] ANES POSTPROC EVALon 024 ANES POSTPROC EVAL Normal [facility] ANES PRE-OPon 05-20-2023 ANES PRE-OP Normal [facility] Bacteria Ur Culton Bacteria identified Cx Nom (U) ORGANISM ID: 1 10,000 -<50,000 CFU/ml Normal urogenital annika Normal [facility] Comment on above: Performed By: #### 6 30-4 ####[facility] LABCLIA [id number] [facility] [id number] [address] [place] Basic metabolic 2000 panelon 05-20-2023 Anion gap [Moles/Vol] 12 mmol/L Normal 9-18 [facility] Comment on above: Order Comment: Speci men Type: BLOOD SPECIMENOrdering Facility: [facility] Address: [address] [place] [address] Performed By: #### 2 4321-2, , 2776-02 ####[facility] LABORATORYCLIA [id number] [place] [address] [place] Calcium [Mass/Vol] 8.8 mg/dL Normal 8.5-10.2 [facility] Comment on above: Order Comment: Speci men Type: BLOOD SPECIMENOrdering Facility: [facility] Address: [address] [place] [address] Performed By: #### 2 4321-2, , 2776-02 ####[facility] LABORATORYCLIA [id number] [place] [address] [place] Chloride [Moles/Vol] 109 mmol/L High 97-105 [facility] Comment on above: Order Comment: Speci men Type: BLOOD SPECIMENOrdering Facility: [facility] Address: [address] [place] [address] Performed By: #### 2 4321-2, , 2776-02 ####[facility] LABORATORYCLIA [id number] [place] [address] [place] CO2 [Moles/Vol] 21 mmol/L Low 22-30 [facility] Comment on above: Order Comment: Speci men Type: BLOOD SPECIMENOrdering Facility: [facility] Address: [address] [place] [address] Performed By: #### 2 4321-2, , 2776-02 ####[facility] LABORATORYCLIA [id number] [place] [address] [place] [facility] Creatinine [Mass/Vol] 0.75 mg/dL Normal 0.58-0.96 [facility] Comment on above: Order Comment: Geraldo marrero Type: BLOOD SPECIMENOrdering Facility: [facility] Address: [address] [place] [address] Performed By: #### 2 4321-2, , 2776-02 ####[facility] LABORATORYCLIA [id number] [place] [address] [facility] Creatinine and Glomerular filtration rate.predicted panel (S/P/Bld) 107 mL/min/1.73m??? Normal >=60 [facility] Comment on above: Order Comment: Geraldo marrero Type: BLOOD SPECIMENOrdering Facility: [facility] Address: [address] [place] [address] Result Comment: Jessica mated Glomerular Filtration Rate [...] Performed By: #### 2 4321-2, , 2776-02 ####[facility] LABORATORYCLIA [id number] [place] [address] [place] Glucose [Mass/Vol] 91 mg/dL Normal 74-99 [facility] Comment on above: Order Comment: Geraldo marrero Type: BLOOD SPECIMENOrdering Facility: [facility] Address: [address] [place] [address] Result Comment: The [place] Diabetes [employer] (ADA) provides guidance for cutoff [...] Standards of Medical Care in Diabetes 2016, [place] [employer]. Diabetes Care. 2016.39(Suppl 1). Performed By: #### 2 4321-2, , 2776-02 ####[facility] LABORATORYCLIA [id number] [place] [address] [place] Potassium [Moles/Vol] 4.1 mmol/L Normal 3.7-5.1 [facility] Comment on above: Order Comment: Speci men Type: BLOOD SPECIMENOrdering Facility: [facility] Address: [address] [place] [address] Performed By: #### 2 4321-2, , 2776-02 ####[facility] LABORATORYCLIA [id number] [place] [address] [place] Sodium [Moles/Vol] 142 mmol/L Normal 136-144 [facility] Comment on above: Order Comment: Speci men Type: BLOOD SPECIMENOrdering Facility: [facility] Address: [address] [place] [address] Performed By: #### 2 4321-2, , 2776-02 ####[facility] LABORATORYCLIA [id number] [place] [address] [place] Urea nitrogen [Mass/Vol] 6 mg/dL Low 7-21 [facility] Comment on above: Order Comment: Speci men Type: BLOOD SPECIMENOrdering Facility: [facility] Address: [address] [place] [address] Performed By: #### 2 4321-2, , 2776-02 ####[facility] LABORATORYCLIA [id number] [place] [address] [place] CBC panel Auto (Bld)on 05-19 Erythrocyte distribution width (RBC) [Ratio] 12.9 % Normal 11.5-15.0 [facility] Comment on above: Order Comment: Speci men Type: BLOOD SPECIMENOrdering Facility: [facility] Address: [address] [place] [address] Performed By: #### 5 8410-2 ####[facility] LABORATORYCLIA [id number] [place] [address] [place] Hematocrit (Bld) [Volume fraction] 36.0 % Normal 36.0-46.0 [facility] Comment on above: Order Comment: Speci men Type: BLOOD SPECIMENOrdering Facility: [facility] Address: [address] [place] [address] Performed By: #### 5 8410-2 ####[facility] LABORATORYCLIA [id number] [place] [address] [place] Hemoglobin (Bld) [Mass/Vol] 12.4 g/dL Normal 11.5-15.5 [facility] Comment on above: Order Comment: Speci men Type: BLOOD SPECIMENOrdering Facility: [facility] Address: [address] [place] [address] Performed By: #### 5 8410-2 ####[facility] LABORATORYCLIA [id number] [place] [address] [place] MCH (RBC) [Entitic mass] 30.8 pg Normal 26.0-34.0 [facility] Comment on above: Order Comment: Speci men Type: BLOOD SPECIMENOrdering Facility: [facility] Address: [address] [place] [address] Performed By: #### 5 8410-2 ####[facility] LABORATORYCLIA [id number] [place] [address] [place] MCHC (RBC) [Mass/Vol] 34.4 g/dL Normal 30.5-36.0 [facility] Comment on above: Order Comment: Speci men Type: BLOOD SPECIMENOrdering Facility: [facility] Address: [address] [place] [address] Performed By: #### 5 8410-2 ####[facility] LABORATORYCLIA [id number] [address] [place] MCV (RBC) [Entitic vol] 89.6 fL Normal 80.0-100.0 [facility] Comment on above: Order Comment: Speci men Type: BLOOD SPECIMENOrdering Facility: [facility] Address: [address] [place] [address] Performed By: #### 5 8410-2 ####[facility] LABORATORYCLIA [id number] [place] [address] [place] Nucleated RBC (Bld) [#/Vol] 10*3/uL Normal <0.01 [facility] Comment on above: Order Comment: Speci men Type: BLOOD SPECIMENOrdering Facility: [facility] Address: [address] [place] [address] Performed By: #### 5 8410-2 ####[facility] LABORATORYCLIA [id number] [place] [address] [place] Platelet mean volume (Bld) [Entitic vol] 11.4 fL Normal 9.0-12.7 [facility] Comment on above: Order Comment: Speci men Type: BLOOD SPECIMENOrdering Facility: [facility] Address: [address] [place] [address] Performed By: #### 5 8410-2 ####[facility] LABORATORYCLIA [id number] [place] [address] [place] Platelets (Bld) [#/Vol] 176 10*3/uL Normal 150-400 [facility] Comment on above: Order Comment: Speci men Type: BLOOD SPECIMENOrdering Facility: [facility] Address: [address] [place] [address] Performed By: #### 5 8410-2 ####[facility] LABORATORYCLIA [id number] [place] [address] [place] RBC (Bld) [#/Vol] 4.02 10*6/uL Normal 3.90-5.20 [facility] Comment on above: Order Comment: Speci men Type: BLOOD SPECIMENOrdering Facility: [facility] Address: [address] [place] [address] Performed By: #### 5 8410-2 ####[facility] LABORATORYCLIA [id number] [place] [address] [place] WBC (Bld) [#/Vol] 2.51 10*3/uL Low 3.70-11.00 [facility] Comment on above: Order Comment: Speci men Type: BLOOD SPECIMENOrdering Facility: [facility] Address: [address] [place] [address] Performed By: #### 5 8410-2 ####[facility] LABORATORYCLIA [id number] [place] [address] [place] HISTORY PHYSICALon HISTORY PHYSICAL Normal [facility] Magnesium SerPl-ncon 05-19 Magnesium [Mass/Vol] 1.9 mg/dL Normal 1.7-2.3 [facility] Comment on above: Order Comment: Speci men Type: BLOOD SPECIMENOrdering Facility: [facility] Address: [address] [place] [address] Performed By: #### 2 4321-2, 27829-7, 2777- ####[facility] LABORATORYCLIA [id number] [place] [address] [place] NURSING PROGon 05-20-2023 NURSING PROG Normal [facility] NURSING PROG Normal [facility] NURSING PROG Normal [facility] NUTRITIONon 05-20-2023 NUTRITION Normal [facility] Phosphate SerPl-mCncon 05-19 Phosphate [Mass/Vol] 3.8 mg/dL Normal 2.7-4.8 [facility] Comment on above: Order Comment: Speci men Type: BLOOD SPECIMENOrdering Facility: [facility] Address: [address] [place] [address] Performed By: #### 2 4321-2, 30658-2, 2777- ####[facility] LABORATORYCLIA [id number] [place] [address] [place] Upper GI endoscopyon 024 Upper GI endoscopy Normal [facility] XR ESOPHAGRAMon 05-20-2023 XR ESOPHAGRAM Normal [facility] Basic metabolic 2000 panelon 05-19-2023 Anion gap [Moles/Vol] 16 mmol/L Normal 9-18 [facility] Comment on above: Order Comment: Speci men Type: BLOOD SPECIMENOrdering Facility: [facility] Address: [address] [place] [address] Performed By: #### 2 4321-2 ####[facility] LABORATORYCLIA [id number] [place] [address] [place] Calcium [Mass/Vol] 8.4 mg/dL Low 8.5-10.2 [facility] Comment on above: Order Comment: Speci men Type: BLOOD SPECIMENOrdering Facility: [facility] Address: [address] [place] [address] Performed By: #### 2 4321-2 ####[facility] LABORATORYCLIA [id number] [place] [address] [place] Chloride [Moles/Vol] 104 mmol/L Normal 97-105 [facility] Comment on above: Order Comment: Speci men Type: BLOOD SPECIMENOrdering Facility: [facility] Address: [address] [place] [address] Performed By: #### 2 4321-2 ####[facility] LABORATORYCLIA [id number] [place] [address] [place] CO2 [Moles/Vol] 15 mmol/L Low 22-30 [facility] Comment on above: Order Comment: Speci men Type: BLOOD SPECIMENOrdering Facility: [facility] Address: [address] [place] [address] Performed By: #### 2 4321-2 ####[facility] LABORATORYCLIA [id number] [place] [address] [place] Creatinine [Mass/Vol] 0.71 mg/dL Normal 0.58-0.96 [facility] Comment on above: Order Comment: Speci men Type: BLOOD SPECIMENOrdering Facility: [facility] Address: [address] [place] [address] Performed By: #### 2 4321-2 ####[facility] LABORATORYCLIA [id number] [place] [address] [place] Creatinine and Glomerular filtration rate.predicted panel (S/P/Bld) 115 mL/min/1.73m??? Normal >=60 [facility] Comment on above: Order Comment: Geraldo marrero Type: BLOOD SPECIMENOrdering Facility: [facility] Address: [address] [place] [address] Result Comment: Jessica mated Glomerular Filtration Rate [...] actual GFR. Performed By: #### 2 4321-2 ####[facility] LABORATORYCLIA [id number] [place] [address] [place] Glucose [Mass/Vol] 73 mg/dL Low 74-99 [facility] Comment on above: Order Comment: Geraldo marrero Type: BLOOD SPECIMENOrdering Facility: [facility] Address: [address] [place] [address] Result Comment: The [place] [employer] (ADA) provides guidance for cutoff [...] Standards of Medical Care in Diabetes 2016, [place] [employer]. Diabetes Care. 2016.39(Suppl 1). Performed By: #### 2 4321-2 ####[facility] LABORATORYCLIA [id number] [place] [address] [place] Potassium [Moles/Vol] 4.1 mmol/L Normal 3.7-5.1 [facility] [facility] Comment on above: Order Comment: Geraldo marrero Type: BLOOD SPECIMENOrdering Facility: [facility] Address: [address] [place] [address] Performed By: #### 2 4321-2 ####[facility] LABORATORYCLIA [id number] [place] [id number] [place] Sodium [Moles/Vol] 135 mmol/L Low 136-144 [facility] Comment on above: Order Comment: Speci men Type: BLOOD SPECIMENOrdering Facility: [facility] Address: [address] [place] [address] Performed By: #### 2 4321-2 ####[facility] LABORATORYCLIA [id number] [place] [address] [place] Urea nitrogen [Mass/Vol] 8 mg/dL Normal 7-21 [facility] Comment on above: Order Comment: Speci men Type: BLOOD SPECIMENOrdering Facility: [facility] Address: [address] [place] [address] Performed By: #### 2 4321-2 ####[facility] LABORATORYCLIA [id number] [address] [place] CBC panel Auto (Bld)on 05-18 Erythrocyte distribution width (RBC) [Ratio] 12.6 % Normal 11.5-15.0 [facility] Comment on above: Order Comment: Speci men Type: BLOOD SPECIMENOrdering Facility: [facility] Address: [address] [place] [address] Performed By: #### 5 8410-2 ####[facility] LABORATORYCLIA [id number] [address] [place] Hematocrit (Bld) [Volume fraction] 33.3 % Low 36.0-46.0 [facility] Comment on above: Order Comment: Speci men Type: BLOOD SPECIMENOrdering Facility: [facility] Address: [address] [place] [address] Performed By: #### 5 8410-2 ####[facility] LABORATORYCLIA [id number] [address] [place] Hemoglobin (Bld) [Mass/Vol] 11.2 g/dL Low 11.5-15.5 [facility] Comment on above: Order Comment: Speci men Type: BLOOD SPECIMENOrdering Facility: [facility] Address: [address] [place] [address] Performed By: #### 5 8410-2 ####[facility] LABORATORYCLIA [id number] [address] STATES [facility] MCH (RBC) [Entitic mass] 30.5 pg Normal 26.0-34.0 [facility] Comment on above: Order Comment: Speci men Type: BLOOD SPECIMENOrdering Facility: [facility] Address: [address] [place] [address] Performed By: #### 5 8410-2 ####[facility] LABORATORYCLIA [id number] [address] [place] MCHC (RBC) [Mass/Vol] 33.6 g/dL Normal 30.5-36.0 [facility] Comment on above: Order Comment: Speci men Type: BLOOD SPECIMENOrdering Facility: [facility] Address: [address] [place] [address] Performed By: #### 5 8410-2 ####[facility] LABORATORYCLIA [id number] [address] [place] MCV (RBC) [Entitic vol] 90.7 fL Normal 80.0-100.0 [facility] Comment on above: Order Comment: Speci men Type: BLOOD SPECIMENOrdering Facility: [facility] Address: [address] [place] [address] Performed By: #### 5 8410-2 ####[facility] LABORATORYCLIA [id number] [address] [place] Nucleated RBC (Bld) [#/Vol] 10*3/uL Normal <0.01 [facility] Comment on above: Order Comment: Speci men Type: BLOOD SPECIMENOrdering Facility: [facility] Address: [address] [place] [address] Performed By: #### 5 8410-2 ####[facility] LABORATORYCLIA [id number] [address] [place] Platelet mean volume (Bld) [Entitic vol] 11.4 fL Normal 9.0-12.7 [facility] Comment on above: Order Comment: Speci men Type: BLOOD SPECIMENOrdering Facility: [facility] Address: [address] [place] [address] Performed By: #### 5 8410-2 ####[facility] LABORATORYCLIA [id number] [place] [address] [place] Platelets (Bld) [#/Vol] 150 10*3/uL Normal 150-400 [facility] Comment on above: Order Comment: Speci men Type: BLOOD SPECIMENOrdering Facility: [facility] Address: [address] [place] [address] Performed By: #### 5 8410-2 ####[facility] LABORATORYCLIA [id number] [place] [address] [place] RBC (Bld) [#/Vol] 3.67 10*6/uL Low 3.90-5.20 [facility] Comment on above: Order Comment: Speci men Type: BLOOD SPECIMENOrdering Facility: [facility] Address: [address] [place] [address] Performed By: #### 5 8410-2 ####[facility] LABORATORYCLIA [id number] [place] [address] [place] WBC (Bld) [#/Vol] 3.57 10*3/uL Low 3.70-11.00 [facility] Comment on above: Order Comment: Speci men Type: BLOOD SPECIMENOrdering Facility: [facility] Address: [address] [place] [address] Performed By: #### 5 8410-2 ####[facility] LABORATORYCLIA [id number] [place] [address] [place] NURSING PROGon 05-19-2023 NURSING PROG Normal [facility] NURSING PROG Normal [facility] NURSING PROG Normal [facility] NUTRITIONon 05-19-2023 NUTRITION Normal [facility] Urinalysis complete panel (U )on 05-19-2023 Bacteria LM.HPF (Urine sed) [#/Area] Few Abnormal None Seen [facility] Comment on above: Order Comment: Speci men Type: URINE SPECIMENOrdering Facility: [facility] Address: [address] [place] [address] Performed By: #### 2 4356-8 ####[facility] LABORATORYCLIA [id number] [place] [address] [place] Bilirubin Ql (U) Negative Normal Negative [facility] Comment on above: Order Comment: Speci men Type: URINE SPECIMENOrdering Facility: [facility] Address: [address] [place] [address] Performed By: #### 2 4356-8 ####[facility] LABORATORYCLIA [id number] [place] [address] [place] Clarity (Unsp spec) Turbid Abnormal Clear [facility] Comment on above: Order Comment: Speci men Type: URINE SPECIMENOrdering Facility: [facility] Address: [address] [place] [address] Performed By: #### 2 4356-8 ####[facility] LABORATORYCLIA [id number] [place] [address] [place] Color (U) Yellow Normal Yellow [facility] Comment on above: Order Comment: Speci men Type: URINE SPECIMENOrdering Facility: [facility] Address: [address] [place] [address] Performed By: #### 2 4356-8 ####[facility] LABORATORYCLIA [id number] [place] [address] [place] Epithelial cells LM.HPF (Urine sed) [#/Area] Moderate Normal [facility] Comment on above: Order Comment: Speci men Type: URINE SPECIMENOrdering Facility: [facility] Address: [address] [place] [address] Performed By: #### 2 4356-8 ####[facility] LABORATORYCLIA [id number] [place] [address] [place] Glucose Test strip (U) [Mass/Vol] Negative Normal Trace, Negative [facility] Comment on above: Order Comment: Speci men Type: URINE SPECIMENOrdering Facility: [facility] Address: [address] [place] [address] Performed By: #### 2 4356-8 ####[facility] LABORATORYCLIA [id number] [place] [address] [place] Hemoglobin Ql (U) Trace Normal Negative, Trace Fa [facility] Comment on above: Order Comment: Speci men Type: URINE SPECIMENOrdering Facility: [facility] Address: [address] [place] [address] Performed By: #### 2 4356-8 ####[facility] LABORATORYCLIA [id number] [place] [address] [place] Ketones Ql (U) 2+ Abnormal Negative, Trace [facility] Comment on above: Order Comment: Speci men Type: URINE SPECIMENOrdering Facility: [facility] Address: [address] [place] [address] Performed By: #### 2 4356-8 ####[facility] LABORATORYCLIA [id number] [address] [place] Leukocyte esterase Test strip Ql (U) 500 Patito/uL Abnormal Negative, 25 Patito/uL [facility] Comment on above: Order Comment: Speci men Type: URINE SPECIMENOrdering Facility: [facility] Address: [address] [place] [address] Performed By: #### 2 4356-8 ####[facility] LABORATORYCLIA [id number] [address] [place] Nitrite Ql (U) Negative Normal Negative [facility] Comment on above: Order Comment: Speci men Type: URINE SPECIMENOrdering Facility: [facility] Address: [address] [place] [address] Performed By: #### 2 4356-8 ####[facility] LABORATORYCLIA [id number] [address] [place] pH (U) 6.0 [pH] Normal 5.0-8.0 [facility] Comment on above: Order Comment: Speci men Type: URINE SPECIMENOrdering Facility: [facility] Address: [address] [place] [address] Performed By: #### 2 4356-8 ####[facility] LABORATORYCLIA [id number] [place] [address] [place] Protein (U) [Mass/Vol] Negative Normal Trace, Negative [facility] Comment on above: Order Comment: Speci men Type: URINE SPECIMENOrdering Facility: [facility] Address: [address] [place] [address] Performed By: #### 2 4356-8 ####[facility] LABORATORYCLIA [id number] [place] [address] [place] RBC LM.HPF (Urine sed) [#/Area] /[HPF] Abnormal 0-3 /HPF [facility] Comment on above: Order Comment: Speci men Type: URINE SPECIMENOrdering Facility: [facility] Address: [address] [place] [address] Performed By: #### 2 4356-8 ####[facility] LABORATORYCLIA [id number] [address] Specific gravity (U) [Rel density] 1.012 Normal 1.005-1.030 [facility] Comment on above: Order Comment: Speci men Type: URINE SPECIMENOrdering Facility: [facility] Address: [address] [place] [address] Performed By: #### 2 4356-8 ####[facility] LABORATORYCLIA [id number] [address] Urobilinogen Ql (U) Normal Normal Normal [facility] Comment on above: Order Comment: Speci men Type: URINE SPECIMENOrdering Facility: [facility] Address: [address] [place] [address] Performed By: #### 2 4356-8 ####[facility] LABORATORYCLIA [id number] [address] [place] WBC LM.HPF (Urine sed) [#/Area] /[HPF] Abnormal 0-5 /HPF [facility] Comment on above: Order Comment: Speci men Type: URINE SPECIMENOrdering Facility: [facility] Address: [address] [place] [address] Performed By: #### 2 4356-8 ####[facility] LABORATORYCLIA [id number] [place] [address] [place] .Interpretation:on HCV Ab IA Ql Comment Invalid Interpretation Code [facility] Comment on above: Result Comment: Not infected with HCV unless early or acute infection issuspected (which may be delayed in an immunocompromisedindividual), or other evidence exists to indicate HCV infection.Performed at: [facility] [place], [place] [id number] PhD Cami Neri Performed By: #### 9 [id number], 91075262, 1149769, 3597385, [id number], 6433972, 7505127464, 0318985, 01710043 ####[facility] [address] [place] [address] 25(OH)D3 [facility] 2023 25-hydroxyvitamin D3 [Mass/Vol] 36.1 ng/mL Normal 31.0-80.0 [facility] Comment on above: Order Comment: Speci men Type: BLOOD SPECIMENOrdering Facility: [facility] Address: [address] [place] [address] Performed By: #### 1 989-3 ####[facility] LABCLIA [id number] [address] [place] Acute Hepatitis A B C Panelo n 05-18-2023 HAV IgM IA Ql Negative Invalid Interpretation Code Negative [facility] Comment on above: Performed By: #### 9 [id number], 07120895, 7716713, 6933105, 6124210998, 6579640, 4603061534, 8890663, 27513061 ####[facility] [address] [place] [address] HBV core IgM IA Ql Negative Invalid Interpretation Code Negative [facility] Comment on above: Performed By: #### 9 [id number], 26362630, 6058335, 0222023, 9593446907, 4879472, 7660292452, 4787772, 30206091 ####[facility] [address] [place] [address] HBV surface Ag IA Ql Negative Invalid Interpretation Code Negative [facility] Comment on above: Performed By: #### 9 48455472, 54558537, 5700594, 1950922, 8401898331, 9447769, 3479473165, 6675405, 95470682 ####[facility] [address] [place] [address] HCV IgG IA Ql Non-Reactive Invalid Interpretation Code Non Reactive [facility] Comment on above: Result Comment: Perf ormed at: [facility] [address] [id number] PhD Cami Neri Performed By: #### 9 54805124, 32749440, 8847421, 3697118, 9179767449, 5882498, 9960435942, 0362566, 52690904 ####[facility] [address] [place] [address] CBC W Auto Differential pane l (Bld)on 05-18-2023 Basophils (Bld) [#/Vol] 0.03 10*3/uL Normal <0.11 [facility] Comment on above: Order Comment: Speci men Type: BLOOD SPECIMENOrdering Facility: [facility] Address: [address] [place] [address] Performed By: #### 5 7021-8 ####[facility] LABORATORYCLIA [id number] [place] [address] [place] Basophils/100 WBC (Bld) 0.6 % Normal [facility] Comment on above: Order Comment: Speci men Type: BLOOD SPECIMENOrdering Facility: [facility] Address: [address] [place] [address] Performed By: #### 5 7021-8 ####[facility] LABORATORYCLIA [id number] [place] [address] [place] Differential cell count method Nom (Bld) Auto Normal [facility] Comment on above: Order Comment: Speci men Type: BLOOD SPECIMENOrdering Facility: [facility] Address: [address] [place], [place] [address] Performed By: #### 5 7021-8 ####[facility] LABORATORYCLIA [id number] [place] [address] [place] Eosinophils (Bld) [#/Vol] 0.06 10*3/uL Normal <0.46 [facility] Comment on above: Order Comment: Speci men Type: BLOOD SPECIMENOrdering Facility: [facility] Address: [address] [place] [address] Performed By: #### 5 7021-8 ####[facility] LABORATORYCLIA [id number] [place] [address] [place] Eosinophils/100 WBC (Bld) 1.3 % Normal [facility] Comment on above: Order Comment: Speci men Type: BLOOD SPECIMENOrdering Facility: [facility] Address: [address] [place] [address] Performed By: #### 5 7021-8 ####[facility] LABORATORYCLIA [id number] [place] [address] [place] Erythrocyte distribution width (RBC) [Ratio] 13.1 % Normal 11.5-15.0 [facility] Comment on above: Order Comment: Speci men Type: BLOOD SPECIMENOrdering Facility: [facility] Address: [address] [place] [address] Performed By: #### 5 7021-8 ####[facility] LABORATORYCLIA [id number] [place] [address] [place] Hematocrit (Bld) [Volume fraction] 43.5 % Normal 36.0-46.0 [facility] Comment on above: Order Comment: Speci men Type: BLOOD SPECIMENOrdering Facility: [facility] Address: [address] [place] [address] Performed By: #### 5 7021-8 ####[facility] LABORATORYCLIA [id number] [place] [address] [place] Hemoglobin (Bld) [Mass/Vol] 14.8 g/dL Normal 11.5-15.5 [facility] Comment on above: Order Comment: Speci men Type: BLOOD SPECIMENOrdering Facility: [facility] Address: [address] [place] [address] Performed By: #### 5 7021-8 ####[facility] LABORATORYCLIA [id number] [place] [id number] [place] Immature granulocytes (Bld) [#/Vol] 10*3/uL Normal <0.10 [facility] Comment on above: Order Comment: Speci men Type: BLOOD SPECIMENOrdering Facility: [facility] Address: [address] [place] [address] Performed By: #### 5 7021-8 ####[facility] LABORATORYCLIA [id number] [address] Immature granulocytes/100 WBC (Bld) 0.2 % Normal [facility] Comment on above: Order Comment: Speci men Type: BLOOD SPECIMENOrdering Facility: [facility] Address: [address] [place] [address] Performed By: #### 5 7021-8 ####[facility] LABORATORYCLIA [id number] [address] [place] Lymphocytes (Bld) [#/Vol] 1.27 10*3/uL Normal 1.00-4.00 [facility] Comment on above: Order Comment: Speci men Type: BLOOD SPECIMENOrdering Facility: [facility] Address: [address] [place] [address] Performed By: #### 5 7021-8 ####[facility] LABORATORYCLIA [id number] [address] STATES [facility] Lymphocytes/100 WBC (Bld) 26.5 % Normal [facility] Comment on above: Order Comment: Speci men Type: BLOOD SPECIMENOrdering Facility: [facility] Address: [address] [place] [address] Performed By: #### 5 7021-8 ####[facility] LABORATORYCLIA [id number] [place] [address] [place] MCH (RBC) [Entitic mass] 30.4 pg Normal 26.0-34.0 [facility] Comment on above: Order Comment: Speci men Type: BLOOD SPECIMENOrdering Facility: [facility] Address: [address] [place] [address] Performed By: #### 5 7021-8 ####[facility] LABORATORYCLIA [id number] [place] [id number] [place] MCHC (RBC) [Mass/Vol] 34.0 g/dL Normal 30.5-36.0 [facility] Comment on above: Order Comment: Speci men Type: BLOOD SPECIMENOrdering Facility: [facility] Address: [address] [place] [address] Performed By: #### 5 7021-8 ####[facility] LABORATORYCLIA [id number] [place] [address] [place] MCV (RBC) [Entitic vol] 89.3 fL Normal 80.0-100.0 [facility] Comment on above: Order Comment: Speci men Type: BLOOD SPECIMENOrdering Facility: [facility] Address: [address] [place] [address] Performed By: #### 5 7021-8 ####[facility] LABORATORYCLIA [id number] [place] [address] [place] Monocytes (Bld) [#/Vol] 0.26 10*3/uL Normal <0.87 [facility] Comment on above: Order Comment: Speci men Type: BLOOD SPECIMENOrdering Facility: [facility] Address: [address] [place] [address] Performed By: #### 5 7021-8 ####[facility] LABORATORYCLIA [id number] [place] [address] [place] Monocytes/100 WBC (Bld) 5.4 % Normal [facility] Comment on above: Order Comment: Speci men Type: BLOOD SPECIMENOrdering Facility: [facility] Address: [address] [place] [address] Performed By: #### 5 7021-8 ####[facility] LABORATORYCLIA [id number] [place] [address] [place] Neutrophils (Bld) [#/Vol] 3.16 10*3/uL Normal 1.45-7.50 [facility] Comment on above: Order Comment: Speci men Type: BLOOD SPECIMENOrdering Facility: [facility] Address: [address] [place] [address] Performed By: #### 5 7021-8 ####[facility] LABORATORYCLIA [id number] [place] [address] [place] Neutrophils/100 WBC (Bld) 66.0 % Normal [facility] Comment on above: Order Comment: Speci men Type: BLOOD SPECIMENOrdering Facility: [facility] Address: [address] [place] [address] Performed By: #### 5 7021-8 ####[facility] LABORATORYCLIA [id number] [address] [place] Nucleated RBC (Bld) [#/Vol] 10*3/uL Normal <0.01 [facility] Comment on above: Order Comment: Speci men Type: BLOOD SPECIMENOrdering Facility: [facility] Address: [address] [place] [address] Performed By: #### 5 7021-8 ####[facility] LABORATORYCLIA [id number] [address] [place] [facility] Nucleated RBC/100 WBC (Bld) [Ratio] 0.0 /100 WBC Normal [facility] Comment on above: Order Comment: Speci men Type: BLOOD SPECIMENOrdering Facility: [facility] Address: [address] [place] [address] Performed By: #### 5 7021-8 ####[facility] LABORATORYCLIA [id number] [address] [place] Platelet mean volume (Bld) [Entitic vol] 11.8 fL Normal 9.0-12.7 [facility] Comment on above: Order Comment: Speci men Type: BLOOD SPECIMENOrdering Facility: [facility] Address: [address] [place] [address] Performed By: #### 5 7021-8 ####[facility] LABORATORYCLIA [id number] [place] [id number] [place] Platelets (Bld) [#/Vol] 226 10*3/uL Normal 150-400 [facility] Comment on above: Order Comment: Speci men Type: BLOOD SPECIMENOrdering Facility: [facility] Address: [address] [place] [address] Performed By: #### 5 7021-8 ####[facility] LABORATORYCLIA [id number] [place] [address] [place] RBC (Bld) [#/Vol] 4.87 10*6/uL Normal 3.90-5.20 [facility] Comment on above: Order Comment: Speci men Type: BLOOD SPECIMENOrdering Facility: [facility] Address: [address] [place] [address] Performed By: #### 5 7021-8 ####[facility] LABORATORYCLIA [id number] [place] [address] [place] WBC (Bld) [#/Vol] 4.79 10*3/uL Normal 3.70-11.00 [facility] Comment on above: Order Comment: Speci men Type: BLOOD SPECIMENOrdering Facility: [facility] Address: [address] [place] [address] Performed By: #### 5 7021-8 ####[facility] LABORATORYCLIA [id number] [place] [id number] [place] [place] CNPNon 05-18-2023 CNPN Normal [facility] CONSULTon 05-18-2023 CONSULT Normal [facility] COPPER BLOODon 05-18-2023 Copper [Mass/Vol] 91 ug/dL Normal 80-155 [facility] Comment on above: Order Comment: Speci men Type: BLOOD SPECIMENOrdering Facility: [facility] Address: [address] [place] [address] Result Comment: This test was developed and its performance characteristics determined by [facility]'s Lucie Harmon [facility] Pathology and Laboratory Medicine [facility] ([facility]). It has not been cleared or approved by the FDA. RT-PLWA is regulated under CLIA as qualified to perform high-complexity testing. This test is used for clinical purposes. It should not be regarded as investigational or for research. Performed By: #### C OPPER ####[facility] LABCLIA [id number] [address] [address] [place] Comprehensive metabolic 2000 panelon 05-18-2023 Albumin [Mass/Vol] 4.7 g/dL Normal 3.9-4.9 [facility] Comment on above: Order Comment: Speci men Type: BLOOD SPECIMENOrdering Facility: [facility] Address: [address] [place] [address] Performed By: #### 3 040-3, , ####[facility]ORATORYCLIA [id number] [place] [address] [place] ALP [Catalytic activity/Vol] 76 U/L Normal 34-123 [facility] Comment on above: Order Comment: Speci men Type: BLOOD SPECIMENOrdering Facility: [facility] Address: [address] [place] [address] Performed By: #### 3 040-3, , ####[facility]ORATORYCLIA [id number] [place] [address] [place] ALT [Catalytic activity/Vol] 19 U/L Normal 7-38 [facility] Comment on above: Order Comment: Speci men Type: BLOOD SPECIMENOrdering Facility: [facility] Address: [address] [place] [address] Performed By: #### 3 040-3, , ####[facility] LABORATORYCLIA [id number] [place] [address] [place] Anion gap [Moles/Vol] 14 mmol/L Normal 9-18 [facility] Comment on above: Order Comment: Speci men Type: BLOOD SPECIMENOrdering Facility: [facility] Address: [address] [place], [place] [address] [address] Performed By: #### 3 040-3, , ####[facility] LABORATORYCLIA [id number] [place] [address] [place] AST [Catalytic activity/Vol] 42 U/L High 13-35 [facility] Comment on above: Order Comment: Speci men Type: BLOOD SPECIMENOrdering Facility: [facility] Address: [address] [place] [address] Performed By: #### 3 040-3, , ####[facility] LABORATORYCLIA [id number] [place] [address] [place] Bilirubin [Mass/Vol] 0.4 mg/dL Normal 0.2-1.3 [facility] Comment on above: Order Comment: Speci men Type: BLOOD SPECIMENOrdering Facility: [facility] Address: [address] [place] [address] Performed By: #### 3 040-3, , ####[facility] LABORATORYCLIA [id number] [place] [address] [place] Calcium [Mass/Vol] 9.2 mg/dL Normal 8.5-10.2 [facility] Comment on above: Order Comment: Speci men Type: BLOOD SPECIMENOrdering Facility: [facility] Address: [address] [place] [address] Performed By: #### 3 040-3, , ####[facility] LABORATORYCLIA [id number] [place] [address] [place] Chloride [Moles/Vol] 106 mmol/L High 97-105 [facility] Comment on above: Order Comment: Speci men Type: BLOOD SPECIMENOrdering Facility: [facility] Address: [address] [place] [address] Performed By: #### 3 040-3, , ####[facility] LABORATORYCLIA [id number] [place] [address] [place] CO2 [Moles/Vol] 21 mmol/L Low 22-30 [facility] Comment on above: Order Comment: Speci men Type: BLOOD SPECIMENOrdering Facility: [facility] Address: [address] [place] [address] Performed By: #### 3 040-3, 72076-6, ####[facility] LABORATORYCLIA [id number] [place] [address] [facility] Creatinine [Mass/Vol] 0.82 mg/dL Normal 0.58-0.96 [facility] Comment on above: Order Comment: Geraldo marrero Type: BLOOD SPECIMENOrdering Facility: [facility] Address: [address] [place] [address] Performed By: #### 3 040-3, , ####[facility] LABORATORYCLIA [id number] [place] [address] [place] [facility] [place] Creatinine and Glomerular filtration rate.predicted panel (S/P/Bld) 96 mL/min/1.73m??? Normal >=60 [facility] Comment on above: Order Comment: Geraldo marrero Type: BLOOD SPECIMENOrdering Facility: [facility] Address: [address] [place] [address] Result Comment: Jessica mated Glomerular Filtration Rate [...] GFR. Performed By: #### 3 040-3, , ####[facility] LABORATORYCLIA [id number] [place] [address] [place] Glucose [Mass/Vol] 79 mg/dL Normal 74-99 [facility] Comment on above: Order Comment: Geraldo elida Type: BLOOD SPECIMENOrdering Facility: [facility] Address: [address] [place] [address] Result Comment: The [place] Diabetes Association (ADA) provides guidance for cutoff [...] Standards of Medical Care in Diabetes 2016, [place] Diabetes Association. Diabetes Care. 2016.39(Suppl 1). Performed By: #### 3 040-3, , ####[facility] LABORATORYCLIA [id number] [place] [address] [place] Potassium [Moles/Vol] 4.3 mmol/L Normal 3.7-5.1 [facility] Comment on above: Order Comment: Geraldo marrero Type: BLOOD SPECIMENOrdering Facility: [facility] Address: [address] [place] [address] Performed By: #### 3 040-3, , ####[facility] LABORATORYCLIA [id number] [place] [address] [place] Protein [Mass/Vol] 7.4 g/dL Normal 6.3-8.0 [facility] Comment on above: Order Comment: Geraldo marrero Type: BLOOD SPECIMENOrdering Facility: [facility] Address: [address] [place] [address] Performed By: #### 3 040-3, , ####[facility] LABORATORYCLIA [id number] [place] [address] [place] Sodium [Moles/Vol] 141 mmol/L Normal 136-144 [facility] Comment on above: Order Comment: Lyssai men Type: BLOOD SPECIMENOrdering Facility: [facility] Address: [address] [place] [address] Performed By: #### 3 040-3, , ####[facility] LABORATORYCLIA [id number] [place] [address] [place] Urea nitrogen [Mass/Vol] 7 mg/dL Normal 7-21 [facility] Comment on above: Order Comment: Speci men Type: BLOOD SPECIMENOrdering Facility: [facility] Address: [address] [place] [address] Performed By: #### 3 040-3, 46887-8, 53198-1 ####[facility] LABORATORYCLIA [id number] [place] [address] [place] Copper Lvlon 05-18-2023 Copper [Mass/Vol] 90 microgram/dL Invalid Interpretation Code 80-158 [facility] Comment on above: Result Comment: This test was developed and its performance characteristicsdetermined by [employer]. It has not been cleared or approvedby the Food and Drug Administration.Detection Limit = 5Performed at: [place] [place] [address] [place], [place] [id number] MD Jhonathan Dai Performed By: #### 9 15408070, 79468865, 0678547, 8215692, [id number], 1631206, 1460876364, 5950494, 75844359 ####[facility] [address] [place] [address] ED PROV NOTEon 05-18-2023 ED PROV NOTE Normal [facility] Folate SerPl-mCncon 05-18-19 24 Folate [Mass/Vol] 10.3 ng/mL Normal >4.7 [facility] Comment on above: Order Comment: Speci men Type: BLOOD SPECIMENOrdering Facility: [facility] Address: [address] [place] [address] Performed By: #### 1 4338-8, 3034-6, 2284-8, 88334-4, 2132-9 ####[facility] LABCLIA [id number] [place] [address] [place] HIV Screen 4th Generation wR fxon 05-18-2023 HIV 1+2 Ab+HIV1 p24 Ag IA Ql Non-Reactive Invalid Interpretation Code Non Reactive [facility] Comment on above: Result Comment: HIV NegativeHIV-1/HIV-2 antibodies and HIV-1 p24 antigen were NOT detected.There is no laboratory evidence of HIV infection.Performed at: [facility] HospitalHgitov[address] [place], [place] [id number] PhD Cami Neri Performed By: #### 9 27113542, 96243654, 3417253, 5343726, [id number], 9963290, 3361138385, 1976974, 11866377 ####[facility] [address] [place] [address] Iron and Iron binding capaci ty panelon 05-18-2023 Iron [Mass/Vol] 81 ug/dL Normal 41-186 [facility] Comment on above: Order Comment: Speci men Type: BLOOD SPECIMENOrdering Facility: [facility] Address: [address] [place] [address] Performed By: #### 1 4338-8, 3034-6, 2284-8, 16328-4, 2131-10 ####[facility] LABIA [id number] [place] [address] [place] Iron binding capacity [Mass/Vol] 292 ug/dL Normal 232-386 [facility] Comment on above: Order Comment: Speci men Type: BLOOD SPECIMENOrdering Facility: [facility] Address: [address] [place] [address] Performed By: #### 1 4338-8, 3034-6, 2284-8, 04043-4, 2131-10 ####[facility] LABIA [id number] [place] [id number] [place] Iron/TIBC [Molar ratio] 27.7 % Normal 15.0-57.0 [facility] Comment on above: Order Comment: Speci men Type: BLOOD SPECIMENOrdering Facility: [facility] Address: [address] [place], [place] [address] Performed By: #### 1 4338-8, 3034-6, 2284-8, 27422-5, 2131-10 ####[facility] LABCLIA [id number] [address] [address] [place] Lipase SerPl-cCncon 05-18-19 24 Lipase [Catalytic activity/Vol] 37 U/L Normal 16-61 [facility] Comment on above: Order Comment: Speci men Type: BLOOD SPECIMENOrdering Facility: [facility] Address: [facility] [place] [address] Performed By: #### 3 040-3, 02793-6, 91346-7 ####[facility] LABORATORYCLIA [id number] [place] [address] [place] Magnesium SerPl-mCncon 05-17 Magnesium [Mass/Vol] 2.1 mg/dL Normal 1.7-2.3 [facility] Comment on above: Order Comment: Speci men Type: BLOOD SPECIMENOrdering Facility: [facility] Address: [address] [place] [address] Performed By: #### 3 040-3, , ####[facility] LABORATORYCLIA [id number] [place] [address] [place] NURSING PROGon 05-18-2023 NURSING PROG Normal [facility] Prealb SerPl-mCncon 05-18-19 Prealbumin [Mass/Vol] 13 mg/dL Low 17-36 [facility] Comment on above: Order Comment: Speci men Type: BLOOD SPECIMENOrdering Facility: [facility] Address: [facility] [place] [address] Performed By: #### 1 4338-8, 3034-6, 2284-8, 78331-7, 2131-10 ####[facility] LABCLIA [id number] [place] [address] [place] Transferrin SerPl-mCncon Transferrin [Mass/Vol] 239 mg/dL Normal 200-360 [facility] Comment on above: Order Comment: Speci men Type: BLOOD SPECIMENOrdering Facility: [facility] Address: [facility] [place] [address] Performed By: #### 1 4338-8, 3034-6, 2284-8, 92636-3, 2131-10 ####[facility] LABCLIA [id number] [address] [place] [address] [place] VITAMIN B1 PLASMAon 05-18-19 24 VITAMIN B1, PLASMA 5 nmol/L Normal 4-15 [facility] Comment on above: Order Comment: Speci men Type: BLOOD SPECIMENOrdering Facility: [facility] Address: [address] [place] [address] Result Comment: INTE RPRETIVE DATA: Vitamin B1, PlasmaThiamine (vitamin B1) is reported. However, thiamine diphosphate(TDP), the biologically active form of thiamine, is not found inmeasurable concentrations in plasma, and is best determined inwhole blood specimens. Plasma thiamine concentration reflectsrecent intake rather than body stores.This test was developed and its performance characteristicsdetermined by [employer]. It has not been cleared orapproved by the [place] Food and Drug Administration. This test wasperformed in a CLIA certified laboratory and is intended forclinical purposes.Performed By: [facility] [place] [address]Tjabhkpwvg Director: Kirt Murphy MD, PhDCLIA Number: [id number] Performed By: #### P VITB1 ####[facility] [id number] [place] [address] VITAMIN B6/PYRIDOXINon 05-17 VITAMIN B6 39.1 nmol/L Normal 20.0-125.0 [facility] Comment on above: Order Comment: Speci men Type: BLOOD SPECIMENOrdering Facility: [facility] Address: [address] [place] [address] Result Comment: INTE RPRETIVE INFORMATION: Vitamin B6 (Pyridoxal 5-Phosphate)Pyridoxal 5'-phosphate measured in a specimen collected followingan 8-hour or overnight fast accurately indicates vitamin Z3mmplskiktci status. Non-fasting specimen concentration reflectsrecent vitamin intake.This test was developed and its performance characteristicsdetermined by [employer]. It has not been cleared orapproved by the [place] Food and Drug Administration. This test wasperformed in a CLIA certified laboratory and is intended forclinical purposes.Performed By: [facility] [place], [place] [address]Szvrmgbssc Director: Kirt Murphy MD, PhDCLIA Number: [id number] Performed By: #### V ITB6 ####[facility]OR[facility]IESCLIA [id number] [place] [address] Vit A SerPl-mCncon 4 Retinol [Mass/Vol] 0.17 mg/L Low 0.30-1.20 [facility] Comment on above: Order Comment: Speci men Type: BLOOD SPECIMENOrdering Facility: [facility] Address: [address] [place] [address] Result Comment: This test was developed and its performance characteristics determined by [facility]'s [facility] Pathology and Laboratory Medicine [facility] ([facility]). It has not been cleared or approved by the FDA. -PLWA is regulated under CLIA as qualified to perform high-complexity testing. This test is used for clinical purposes. It should not be regarded as investigational or for research. Performed By: #### 2 923-1 ####[facility] LABCLIA [id number] [place] [address] [place] Vit B12 SerPl-mCncon 024 Cobalamin (Vitamin B12) [Mass/Vol] 1155 pg/mL Normal 232-1245 [facility] Comment on above: Order Comment: Speci men Type: BLOOD SPECIMENOrdering Facility: [facility] Address: [address] [place] [address] Performed By: #### 1 4338-8, 3034-6, 2284-8, 45569-3, 2132-9 ####[facility] LABIA [id number] [place] [id number] [place] ZINC, WHOLE BLOODon 05-18-19 24 ZINC, WHOLE BLOOD 670.6 ug/dL Normal 440.0-860.0 [facility] Comment on above: Order Comment: Speci men Type: BLOOD SPECIMENOrdering Facility: [facility] Address: [address] [place] [address] Result Comment: INTE RPRETIVE DATA: Zinc Quantitative, [...] was developed and its performance characteristicsdetermined by [employer]. It has not been cleared orapproved by the [place] Food and Drug Administration. This test wasperformed in a CLIA certified laboratory and is intended forclinical purposes.Performed By: [facility] [place], [place] [address]Spowvbbuet Director: Kirt Murphy MD, PhDCLIA Number: [id number] Performed By: #### Z INCWB ####[facility] HOSPITALIA [id number] [place] [address] CBC w/ Auto Diffon 4 Basophils/100 WBC (Bld) 0.7 % Normal 0.0-2.0 [facility] Comment on above: Performed By: #### 2 386713, 4209931, 6825509, 20893157 ####[facility] [address] [place] [address] Basophils/Leukocyte s Auto (Bld) [Pure # fraction] 0.0 E9/L Normal 0.0-0.2 [facility] Comment on above: Performed By: #### 2 075963, 0329476, 1863244, 62584224 ####[facility] [address] [place] [address] Eosinophils (Bld) [#/Vol] 0.1 E9/L Normal 0.0-0.5 [facility] Comment on above: Performed By: #### 2 267239, 2472405, 1438946, 62490364 ####[place] [address] [place] [address] Eosinophils/100 WBC (Bld) 1.9 % Normal 0.0-8.0 [facility] Comment on above: Performed By: #### 2 572369, 7999835, 6918541, 49032311 ####[place] [address] [place] [address] Erythrocyte distribution width (RBC) [Ratio] 14.1 % Normal 10.9-14.2 [facility] Comment on above: Performed By: #### 2 052675, 7689716, 2444179, 40493927 ####[address] [address] Hematocrit (Bld) [Volume fraction] 41.1 % Normal 34.0-46.0 [facility] Comment on above: Performed By: #### 2 732395, 4289374, 7494054, 07202707 ####[address] [address] Hemoglobin (Bld) [Mass/Vol] 13.7 g/dL Normal 12.0-16.0 [facility] Comment on above: Performed By: #### 2 022637, 0552708, 8320212, 25113169 ####[address] [address] Lymphocytes (Bld) [#/Vol] 1.4 E9/L Normal 1.0-4.0 [facility] Comment on above: Performed By: #### 2 808944, 5419039, 1283629, 75354986 ####[address] [address] Lymphocytes/100 WBC (Bld) 38.9 % Normal 14.0-50.0 [facility] Comment on above: Performed By: #### 2 743363, 7350689, 7776576, 16474620 ####[address] [address] MCH (RBC) [Entitic mass] 29.8 pg Normal 27.0-34.0 [facility] Comment on above: Performed By: #### 2 976242, 0662168, 8124928, 75352078 ####[address] [address] MCHC (RBC) [Mass/Vol] 33.3 g/dL Normal 31.4-36.0 [facility] Comment on above: Performed By: #### 2 371144, 5714899, 6685798, 91891499 ####[facility] [address] [place] [address] MCV (RBC) [Entitic vol] 89.5 fL Normal 80.0-100.0 [facility] Comment on above: Performed By: #### 2 435138, 1961568, 1578865, 11238322 ####[address] [address] Monocytes (Bld) [#/Vol] 0.2 E9/L Normal 0.2-1.0 [facility] Comment on above: Performed By: #### 2 265092, 7187814, 2398174, 05486282 ####[address] [address] Neutrophils (Bld) [#/Vol] 1.9 E9/L Low 2.0-7.5 [facility] Comment on above: Performed By: #### 2 674613, 9076692, 0828759, 89138829 ####[address] [address] Neutrophils/100 WBC (Bld) 52.6 % Normal 36.0-75.0 [facility] Comment on above: Performed By: #### 2 010522, 6593701, 7833507, 87002425 ####[address] [address] Platelet 195.0 E9/L Normal 150.0-500.0 [facility] Comment on above: Performed By: #### 2 485158, 1537669, 5038833, 08622494 ####[address] [address] Platelet mean volume (Bld) [Entitic vol] 9.0 fL Normal 6.4-10.8 [facility] Comment on above: Performed By: #### 2 202013, 7787082, 8339868, 94429605 ####[facility] [address] [place] [address] RBC (Bld) [#/Vol] 4.6 E12/L Normal 4.3-5.9 [facility] Comment on above: Performed By: #### 2 580346, 8790733, 4258723, 02011432 ####[facility] [address] [place] [address] WBC corrected for nucl RBC Auto (Bld) [#/Vol] 3.6 E9/L Low 4.0-11.0 [facility] Comment on above: Performed By: #### 2 566103, 4344329, 5440615, 95395960 ####[facility] [address] [place] [address] CHEMISTRYOrdered By: SYSTEM SYSTEM on 05-17-2023 Albumin [...] 05-17-2023 Albumin [Mass/Vol] 4.5 g/dL Normal 3.3-5.0 [facility] Comment on above: Performed By: #### 2 109933, 5683545, 9012711, 03581931 ####[facility] [address] [place] [address] Albumin/Globulin (S) [Mass conc ratio] 1.6 Normal 1.1-2.2 [facility] Comment on above: Performed By: #### 2 966053, 2461645, 8034235, 57657962 ####[facility] [address] [place] [address] ALP [Catalytic activity/Vol] 61 Int._Unit/L Normal 21-98 [facility] Comment on above: Performed By: #### 2 088499, 8017834, 2576901, 19397958 ####[facility] [address] [place] [address] ALT No additional P-5'-P [Catalytic activity/Vol] 17 Int._Unit/L Normal 6-46 [facility] Comment on above: Performed By: #### 2 061661, 2118825, 4629067, 90620368 ####[facility] [address] [place] [address] Anion gap [Moles/Vol] 12 mmol/L Normal 6-16 [facility] Comment on above: Performed By: #### 2 202233, 9111949, 7124026, 92608072 ####[facility] [address] [place] [address] AST [Catalytic activity/Vol] 30 Int._Unit/L Normal 5-43 [facility] Comment on above: Performed By: #### 2 030878, 5875186, 7771155, 41391803 ####[facility] [address] [place] [address] Bilirubin [Mass/Vol] 0.5 mg/dL Normal 0.0-1.1 [facility] Comment on above: Performed By: #### 2 142981, 6121882, 4342853, 17735197 ####[facility] [address] [place] [address] Calcium [Mass/Vol] 9.2 mg/dL Normal 8.9-11.1 [facility] Comment on above: Performed By: #### 2 175738, 5946839, 4801905, 68256418 ####[facility] [address] [address] Chloride [Moles/Vol] 106 mmol/L Normal 101-111 [facility] Comment on above: Performed By: #### 2 590243, 2906301, 5791062, 66766415 ####[facility] [address] [place] [address] CO2 [Moles/Vol] 24 mmol/L Normal 21-31 [facility] Comment on above: Performed By: #### 2 850889, 2413131, 6894574, 39183124 ####[facility] [address] [place] [address] Creatinine [Mass/Vol] 0.9 mg/dL Normal 0.5-1.3 [facility] Comment on above: Performed By: #### 2 458564, 4291062, 2080657, 21675190 ####[facility] [address] [place] [address] Globulin (S) [Mass/Vol] 2.9 g/dL Normal 1.4-4.0 [facility] Comment on above: Performed By: #### 2 257461, 2615734, 5430111, 33601007 ####[facility] [address] [place] [address] Glucose [Mass/Vol] 80 mg/dL Normal 55-199 [facility] Comment on above: Performed By: #### 2 429596, 3045836, 4456250, 32307825 ####[facility] [address] [place] [address] Potassium [Moles/Vol] 3.8 mmol/L Normal 3.5-5.3 [facility] Comment on above: Performed By: #### 2 499743, 3503815, 8697797, 84049571 ####[facility] [address] [place] [address] Protein [Mass/Vol] 7.4 g/dL Normal 6.0-7.8 [facility] Comment on above: Performed By: #### 2 339910, 8670053, 0398898, 86089952 ####[facility] [address] [place] [address] Sodium [Moles/Vol] 138 mmol/L Normal 135-145 [facility] Comment on above: Performed By: #### 2 174884, 2822419, 9279833, 15335665 ####[facility] [address] [place] [address] Urea nitrogen [Mass/Vol] 6 mg/dL Normal 5-21 [facility] Comment on above: Performed By: #### 2 792500, 2622506, 4176084, 90584087 ####[facility] [address] [place] [address] Urea nitrogen/Creatinine [Mass ratio] 7 No Units Low 10- [facility] Comment on above: Performed By: #### 2 309892, 1718543, 7318489, 86847137 ####[facility] [address] [place] [address] Consent for Treatmenton Consent for Treatment [id number]#1.00TIFF Normal [facility] Discharge Instructionson Discharge Instructions [id number] 524#1.00TIFF Normal [facility] ED Clinical Summaryon 2023 ED Clinical Summary Normal [facility] ED Note-Physicianon 05-17-19 ED Note-Physician Normal [facility] Comment on above: Result Comment: Elec tronically Signed By: Tiffani Cunningham PA-C\.br\Date and Time Signed: 05/17/23 15:46 EDT\.br\Electronically Co-Signed By: Ashutosh Albright M.D.\.br\Date and Time Co-Signed: 05/17/23 17:49 EDT ED Patient Education Noteon 05-17-2023 ED Patient Education Note Normal [facility] ED Patient Summaryon 024 ED Patient Summary Normal [facility] HEMATOLOGYOrdered By: SYSTEM SYSTEM on 05-17-2023 [...] 05-17-2023 Magnesium [Mass/Vol] 2.1 mg/dL Normal 1.3-2.4 [facility] Comment on above: Performed By: #### 2 629308, 0227618, 7125618, 69237110 ####[facility] [address] [place] [address] Population Healthon 05-17-19 24 Population Health Normal [facility] Pre-Arrival Noteon 4 Pre-Arrival Note Normal [facility] eGFRon 05-17-2023 eGFR 86 mL/min/1.73 m2 Normal >=59 [facility] Comment on above: Order Comment: Order added by Discern Expert. Performed By: #### 2 617565, 9743396, 1932705, 27197709 ####[facility] [address] [place] [address] BMPon 05-14-2023 Anion gap [Moles/Vol] 8 mmol/L Normal 6-16 [facility] Comment on above: Performed By: #### 9 13743144, 20571127, 7273872, 3207508, 8509263011, 2914315, 7520810931, 5735475, 60572515 ####[facility] [address] [place] [address] Calcium [Mass/Vol] 8.6 mg/dL Low 8.9-11.1 [facility] Comment on above: Performed By: #### 9 35806561, 82638090, 2969207, 3497816, 1801594700, 8657073, 9909015897, 1735449, 02060022 ####[facility] [address] [place] [address] Chloride [Moles/Vol] 110 mmol/L Normal 101-111 [facility] Comment on above: Performed By: #### 9 56964617, 22202672, 4964222, 7188972, 0899889620, 5539395, 4687912778, 8582748, 71205645 ####[facility] [address] [place] [address] CO2 [Moles/Vol] 26 mmol/L Normal 21-31 [facility] Comment on above: Performed By: #### 9 00109499, 12756964, 1130954, 6381225, 6328611968, 2369690, 7047748122, 8103107, 04700046 ####[facility] [address] [place] [address] Creatinine [Mass/Vol] 0.9 mg/dL Normal 0.5-1.3 [facility] Comment on above: Performed By: #### 9 08915430, 40947113, 4803972, 2022294, 9773294969, 6418508, 3426745179, 3038824, 83755856 ####[facility] [address] [place] [address] Glucose [Mass/Vol] 96 mg/dL Normal 55-199 [facility] Comment on above: Performed By: #### 9 24405531, 40135147, 1580928, 0526287, 4797858931, 0085596, 1952038314, 9709558, 94127933 ####[facility] [address] [place] [address] Potassium [Moles/Vol] 4.0 mmol/L Normal 3.5-5.3 [facility] Comment on above: Performed By: #### 9 47771467, 92802648, 6767686, 4416476, 9001395329, 8602288, 1656928085, 9950179, 77915953 ####[facility] [address] [place] [address] Sodium [Moles/Vol] 140 mmol/L Normal 135-145 [facility] Comment on above: Performed By: #### 9 73320208, 36685237, 8867719, 1216540, 0037553195, 7551985, 1911455657, 9930132, 57697201 ####[facility] [address] [place] [address] Urea nitrogen [Mass/Vol] 5 mg/dL Normal 5-21 [facility] Comment on above: Performed By: #### 9 19869564, 42461279, 2493808, 8817919, 1706999964, 2395928, 4970488533, 6599409, 21954183 ####[facility] [address] [place] [address] Urea nitrogen/Creatinine [Mass ratio] 6 No Units Low 10-20 [facility] Comment on above: Performed By: #### 9 01655481, 60142212, 3264811, 7092061, 9826177015, 7093823, 7789373743, 4026326, 96035445 ####[facility] [address] [place] [address] CBC w/ Auto Diffon 4 Basophils/100 WBC (Bld) 1.4 % Normal 0.0-2.0 [facility] Comment on above: Performed By: #### 9 25397414, 34675374, 4008497, 5429936, 5860990953, 6893563, 6286026473, 3694107, 54368310 ####[address] [address] Basophils/Leukocyte s Auto (Bld) [Pure # fraction] 0.0 E9/L Normal 0.0-0.2 [facility] Comment on above: Performed By: #### 9 60773344, 83990451, 1325823, 2001092, 6417797143, 8790499, 3267772474, 9709161, 28057301 ####[address] [address] Eosinophils (Bld) [#/Vol] 0.1 E9/L Normal 0.0-0.5 [facility] Comment on above: Performed By: #### 9 71973990, 40226753, 7483509, 0395221, 9911539060, 3418455, 4403909415, 9293714, 24135010 ####[address] [address] Eosinophils/100 WBC (Bld) 6.1 % Normal 0.0-8.0 [facility] Comment on above: Performed By: #### 9 89046420, 58703849, 0674748, 7828726, 0062669629, 3236324, 9429467429, 9636385, 21112675 ####[address] [address] Erythrocyte distribution width (RBC) [Ratio] 14.4 % High 10.9-14.2 [facility] Comment on above: Performed By: #### 9 00564021, 11949185, 8690694, 2793613, 8999542052, 2891507, 0977607069, 5073092, 22386948 ####[facility] [address] [place] [address] Hematocrit (Bld) [Volume fraction] 36.1 % Normal 34.0-46.0 [facility] Comment on above: Performed By: #### 9 23010319, 83093597, 1314238, 5183571, 9349173393, 1312439, 4173786495, 4945824, 27228418 ####[address] [address] Hemoglobin (Bld) [Mass/Vol] 12.2 g/dL Normal 12.0-16.0 [facility] Comment on above: Performed By: #### 9 71974184, 10275313, 7949420, 0870840, 8226541038, 3261687, 8830129867, 7416373, 19455019 ####[address] [address] Lymphocytes (Bld) [#/Vol] 1.1 E9/L Normal 1.0-4.0 [facility] Comment on above: Performed By: #### 9 36236080, 72784644, 1594750, 9554450, 0484740095, 7263653, 6467108141, 8662172, 12071072 ####[address] [address] Lymphocytes/100 WBC (Bld) 51.0 % High 14.0-50.0 [facility] Comment on above: Performed By: #### 9 90563532, 45457873, 2703767, 4715554, 2318225391, 7297745, 4143817504, 0738996, 87946752 ####[address] [address] MCH (RBC) [Entitic mass] 30.3 pg Normal 27.0-34.0 [facility] Comment on above: Performed By: #### 9 60077941, 92899290, 4914541, 3280171, 4186411072, 4415142, 9253166898, 3620633, 97414026 ####[facility] [address] [place] [address] MCHC (RBC) [Mass/Vol] 33.9 g/dL Normal 31.4-36.0 [facility] Comment on above: Performed By: #### 9 95438407, 94969987, 8066484, 4738825, 0973762029, 9068351, 8224593530, 4808537, 79171438 ####[address] [place] [address] MCV (RBC) [Entitic vol] 89.3 fL Normal 80.0-100.0 [facility] Comment on above: Performed By: #### 9 08403448, 05262322, 5666724, 7866051, 3997092327, 7464001, 7758726552, 6556152, 97079139 ####[address] [address] Monocytes (Bld) [#/Vol] 0.1 E9/L Low 0.2-1.0 [facility] Comment on above: Performed By: #### 9 24900705, 98968155, 2085590, 8883456, 6096818338, 3853465, 4006097770, 8056177, 72388109 ####[address] [place] [address] Neutrophils (Bld) [#/Vol] 0.8 E9/L Low 2.0-7.5 [facility] Comment on above: Performed By: #### 9 07331303, 54372543, 8813432, 8542633, 3574578837, 9948246, 7506692660, 4457880, 09575120 ####[address] [address] Neutrophils/100 WBC (Bld) 36.8 % Normal 36.0-75.0 [facility] Comment on above: Performed By: #### 9 55225319, 47754886, 6055880, 2006596, 2460156167, 1689249, 4387408702, 4296726, 68480869 ####[facility] [address] [place] [address] Platelet mean volume (Bld) [Entitic vol] 9.3 fL Normal 6.4-10.8 [facility] Comment on above: Performed By: #### 9 91882658, 11536425, 7543201, 8925121, 2577184759, 7103959, 2386402234, 2544021, 22652222 ####[facility] [address] [place] [address] Platelets (Bld) [#/Vol] 167.0 E9/L Normal 150.0-500.0 [facility] Comment on above: Performed By: #### 9 75541523, 11393749, 1767868, 3820457, 4977856914, 5534239, 2189774425, 8338068, 87934449 ####[facility] [address] [place] [address] RBC (Bld) [#/Vol] 4.0 E12/L Low 4.3-5.9 [facility] Comment on above: Performed By: #### 9 07657111, 65310379, 0895997, 3733278, 9587174761, 3055601, 9170759313, 4305303, 57760225 ####[facility] [address] [place] [address] WBC corrected for nucl RBC Auto (Bld) [#/Vol] 2.1 E9/L Low 4.0-11.0 [facility] Comment on above: Result Comment: Resu lts consistant with previous path review on 05/13/23, reviewed by [id number] Performed By: #### 9 54901061, 56150232, 5283041, 0386804, 1416642765, 4855438, 3983203044, 4107291, 88909744 ####[facility] [address] [place] [address] CHEMISTRYOrdered By: SYSTEM SYSTEM on 05-14-2023 Anion [...] Chem Consultation Noteon 05-14-19 Consultation Note Normal [facility] Comment on above: Result Comment: Elec tronically Signed By: Miguel JOHNSON, Jon Smith\.br\Date and Time Signed: 05/14/23 11:54 EDT Discharge Note-Nursingon Discharge Note-Nursing Invalid Interpretation Code [address] [place] [address]- \.br\ Wednesday 9:45 AM EDT \.br\ With: Nasim JOHNSON, Rajni Ballesteros\.br\ Where: [facility] Debo [facility] Folateon 05-14-2023 Folate [Mass/Vol] 10.1 ng/mL Normal >=6.7 [facility] Comment on above: Performed By: #### 9 65557734, 29302963, 9747247, 8910086, 6721097350, 2208861, 5294707619, 5432834, 59711149 ####[facility] [address] [place] [address] HEMATOLOGYOrdered By: SYSTEM SYSTEM on 05-14-2023 Basophils/100 [...] previous path review on 05/13/23, reviewed by [id number] Inpatient Clinical Summaryon 05-14-2023 Inpatient Clinical Summary Normal [facility] Inpatient Patient Summaryon 05-14-2023 Inpatient Patient Summary Normal [facility] Interdisciplinary Note - Taz e Manageron 05-14-2023 Interdisciplinary Note - Diesel Retrofit Installer Normal [facility] Comment on above: Result Comment: Elec tronically Signed By: Kera Diehl\.br\Date and Time Signed: 05/14/23 10:23 EDT IntraOperative Documentson 0 05-14-2023 IntraOperative Documents [id number]#1.00TIFF Normal [facility] Progress Note-Physicianon Progress Note-Physician Normal [facility] Comment on above: Result Comment: Elec tronically Signed By: Moncho Trejo DObr\Date and Time Signed: 05/14/23 10:14 EDT Progress Note-Physician Normal [facility] Comment on above: Result Comment: Elec tronically Signed By: Kuldip Arcos Jr, DO.br\Date and Time Signed: 05/14/23 07:41 EDT Progress Note-Physician Normal [facility] Comment on above: Result Comment: Elec tronically Signed By: Isrrael Cummins DO, Kuldip Arzate\.rene\Date and Time Signed: 05/14/23 07:41 EDT Vit B12on 05-14-2023 Cobalamin (Vitamin B12) [Mass/Vol] 791 pg/mL Normal 50-1500 [facility] Comment on above: Performed By: #### 9 49415035, 01332649, 3053840, 4419279, 6565974719, 4333013, 5927305329, 1197074, 57886547 ####[facility] [address] [place] [address] eGFRon 05-14-2023 eGFR 86 mL/min/1.73 m2 Normal >=59 [facility] Comment on above: Order Comment: Order added by Discern Expert. Performed By: #### 9 91052850, 82395247, 8281477, 1011212, 3841815861, 7628611, 4498305081, 2439504, 62374490 ####[facility] [address] [place] [address] CBC w/ Auto Diffon 4 Basophils/100 WBC (Bld) 1.2 % Normal 0.0-2.0 [facility] Comment on above: Performed By: #### 2 631642, 9122919, 43291123, 23570613 ####[address] [place] [address] Basophils/Leukocyte s Auto (Bld) [Pure # fraction] 0.0 E9/L Normal 0.0-0.2 [facility] Comment on above: Performed By: #### 2 284926, 6990215, 31534797, 36649439 ####[facility] [address] [place] [address] Eosinophils (Bld) [#/Vol] 0.1 E9/L Normal 0.0-0.5 [facility] Comment on above: Performed By: #### 2 540995, 5557229, 50606756, 71382694 ####[address] [address] Eosinophils/100 WBC (Bld) 4.7 % Normal 0.0-8.0 [facility] Comment on above: Performed By: #### 2 672415, 0290017, 98079659, 47756480 ####[address] [address] Erythrocyte distribution width (RBC) [Ratio] 14.3 % High 10.9-14.2 [facility] Comment on above: Performed By: #### 2 070379, 5567222, 07397544, 21119918 ####[address] [address] Hematocrit (Bld) [Volume fraction] 37.1 % Normal 34.0-46.0 [facility] Comment on above: Performed By: #### 2 058729, 3564203, 91820259, 84679193 ####[address] [address] Hemoglobin (Bld) [Mass/Vol] 12.5 g/dL Normal 12.0-16.0 [facility] Comment on above: Performed By: #### 2 606100, 8053811, 03367382, 39134133 ####[address] [address] Lymphocytes (Bld) [#/Vol] 1.1 E9/L Normal 1.0-4.0 [facility] Comment on above: Performed By: #### 2 924519, 6115139, 87928643, 32894515 ####[address] [address] Lymphocytes/100 WBC (Bld) 53.2 % High 14.0-50.0 [facility] Comment on above: Performed By: #### 2 730229, 4840548, 73138681, 08268241 ####[address] [address] MCH (RBC) [Entitic mass] 30.1 pg Normal 27.0-34.0 [facility] Comment on above: Performed By: #### 2 838989, 7815775, 50926520, 26355998 ####[address] [address] MCHC (RBC) [Mass/Vol] 33.6 g/dL Normal 31.4-36.0 [facility] Comment on above: Performed By: #### 2 848415, 9127351, 05494842, 31747529 ####[address] [address] MCV (RBC) [Entitic vol] 89.4 fL Normal 80.0-100.0 [facility] Comment on above: Performed By: #### 2 154067, 8702158, 08797689, 84729138 ####[address] [address] Monocytes (Bld) [#/Vol] 0.1 E9/L Low 0.2-1.0 [facility] Comment on above: Performed By: #### 2 567436, 0258026, 21900868, 11189762 ####[address] [address] Neutrophils (Bld) [#/Vol] 0.7 E9/L Low 2.0-7.5 [facility] Comment on above: Performed By: #### 2 617015, 0821064, 95421433, 88942778 ####[address] [address] Neutrophils/100 WBC (Bld) 34.6 % Low 36.0-75.0 [facility] Comment on above: Performed By: #### 2 318178, 0674435, 97779787, 12259842 ####[address] [place] [address] Platelet 168.0 E9/L Normal 150.0-500.0 [facility] Comment on above: Performed By: #### 2 882052, 8126613, 47386775, 88469541 ####[facility] [address] [place] [address] Platelet mean volume (Bld) [Entitic vol] 9.1 fL Normal 6.4-10.8 [facility] Comment on above: Performed By: #### 2 886881, 7329692, 49259366, 84622164 ####[facility] [address] [place] [address] RBC (Bld) [#/Vol] 4.1 E12/L Low 4.3-5.9 [facility] Comment on above: Performed By: #### 2 674437, 6946951, 04908445, 37311116 ####[facility] [address] [place] [address] WBC corrected for nucl RBC Auto (Bld) [#/Vol] 2.0 E9/L Abnormal 4.0-11.0 [facility] Comment on above: Result Comment: Resu lts called to JACKSON MARROQUIN by and read back on 05/13/2023 07:20:49.Critical Result Verified by Repeat AnalysisSlide review performed Performed By: #### 2 536865, 3696095, 54891820, 42244923 ####[facility] [address] [place] [address] CHEMISTRYOrdered By: SYSTEM SYSTEM on 05-13-2023 Albumin [...] 05-13-2023 Albumin [Mass/Vol] 3.9 g/dL Normal 3.3-5.0 [facility] Comment on above: Performed By: #### 2 888818, 0345384, 26637382, 58698225 ####[facility] [address] [place] [address] Albumin/Globulin (S) [Mass conc ratio] 1.6 Normal 1.1-2.2 [facility] Comment on above: Performed By: #### 2 278085, 5197483, 24247957, 30443174 ####[facility] [address] [place] [address] ALP [Catalytic activity/Vol] 49 Int._Unit/L Normal 21-98 [facility] Comment on above: Performed By: #### 2 486958, 8237510, 21857122, 93308276 ####[facility] [address] [place] [address] ALT No additional P-5'-P [Catalytic activity/Vol] 12 Int._Unit/L Normal 6-46 [facility] Comment on above: Performed By: #### 2 120428, 1927286, 27382646, 61058036 ####[facility] [address] [place] [address] Anion gap [Moles/Vol] 9 mmol/L Normal 6-16 [facility] Comment on above: Performed By: #### 2 866572, 7457122, 49924449, 45609220 ####[address] [address] AST [Catalytic activity/Vol] 23 Int._Unit/L Normal 5-43 [facility] Comment on above: Performed By: #### 2 383791, 2927278, 11039318, 16198678 ####[facility] [address] [place] [address] Bilirubin [Mass/Vol] 0.4 mg/dL Normal 0.0-1.1 [facility] Comment on above: Performed By: #### 2 541682, 3522308, 44068365, 40717970 ####[facility] [address] [place] [address] Calcium [Mass/Vol] 8.4 mg/dL Low 8.9-11.1 [facility] Comment on above: Performed By: #### 2 407726, 0217966, 60555213, 15991034 ####[facility] [address] [place] [address] Chloride [Moles/Vol] 111 mmol/L Normal 101-111 [facility] Comment on above: Performed By: #### 2 255725, 6288141, 48344732, 25039643 ####[facility] [address] [place] [address] CO2 [Moles/Vol] 24 mmol/L Normal 21-31 [facility] Comment on above: Performed By: #### 2 849813, 5320248, 70434420, 34190460 ####[facility] [address] [place] [address] Creatinine [Mass/Vol] 0.7 mg/dL Normal 0.5-1.3 [facility] Comment on above: Performed By: #### 2 667475, 2516735, 38475398, 45026882 ####[facility] [address] [place] [address] Globulin (S) [Mass/Vol] 2.5 g/dL Normal 1.4-4.0 [facility] Comment on above: Performed By: #### 2 030464, 0806834, 95744601, 39471731 ####[facility] [address] [place] [address] Glucose [Mass/Vol] 84 mg/dL Normal 55-199 [facility] Comment on above: Performed By: #### 2 925678, 9801522, 22069164, 02170412 ####[facility] [address] [place] [address] Potassium [Moles/Vol] 3.7 mmol/L Normal 3.5-5.3 [facility] Comment on above: Performed By: #### 2 823109, 8231951, 49271174, 16471136 ####[facility] [address] [place] [address] Protein [Mass/Vol] 6.4 g/dL Normal 6.0-7.8 [facility] Comment on above: Performed By: #### 2 330834, 0061356, 55879837, 36423533 ####[facility] [address] [place] [address] Sodium [Moles/Vol] 140 mmol/L Normal 135-145 [facility] Comment on above: Performed By: #### 2 041303, 0271831, 21554236, 00355094 ####[facility] [address] [place] [address] Urea nitrogen [Mass/Vol] 7 mg/dL Normal 5-21 [facility] Comment on above: Performed By: #### 2 773754, 4431491, 24313039, 74132665 ####[facility] [address] [place] [address] Urea nitrogen/Creatinine [Mass ratio] 10 No Units Normal 10-20 [facility] Comment on above: Performed By: #### 2 314855, 1396683, 96568100, 44155187 ####[facility] [address] [place] [address] Consenton 05-13-2023 Consent [id number] 250#1.00TIFF Normal [facility] Consultation Noteon 05-13-19 24 Consultation Note Normal [facility] Comment on above: Result Comment: Elec [...] above: Result Comment: Resu lts called to JACSKON MARROQUIN by and read back on 05/13/2023 07:20:49. Critical Result Verified by Repeat Analysis Slide review performed HEMATOLOGYOrdered By: Stephan Tavares on 05-13-2023 Path Review Anemia with no increase of reticulocytes. Leukocytopenia with reactive lymphocytes and monocytes.CPT 49007 Invalid Interpretation Code [facility] [facility] Interdisciplinary Note - Taz e Manageron 05-13-2023 Interdisciplinary Note - Diesel Retrofit Installer Normal [facility] Comment on above: Result Comment: Elec tronically Signed By: Kera Diehl\.br\Date and Time Signed: 05/13/23 13:46 EDT Main OR Intraoperative Recor don 05-13-2023 Main OR Intraoperative Record Normal [facility] Oncology Progress Noteon Oncology Progress Note Normal [facility] Path. Reviewon 05-13-2023 Path Review Anemia with no increase of reticulocytes. Leukocytopenia with reactive lymphocytes and monocytes. Invalid Interpretation Code [facility] Comment on above: Order Comment: Order added by Discern Expert Performed By: #### 2 369548, 3582126, 45156920, 02723661 ####[facility] [address] [place] [address] Progress Note-Physicianon Progress Note-Physician Normal [facility] Comment on above: Result Comment: Elec tronically Signed By: Moncho Trejo DO\.br\Date and Time Signed: 05/13/23 10:43 EDT eGFRon 05-13-2023 eGFR 116 mL/min/1.73 m2 Normal >=59 [facility] Comment on above: Order Comment: Order added by Discern Expert. Performed By: #### 2 258859, 3344343, 06330935, 24635647 ####[facility] [address] [place] [address] B hCG Qualon 05-12-2023 Beta HCG ( test) Ql Negative Normal [facility] Comment on above: Performed By: #### 1 0243116, 4540192, 19220694, 0691131, 5887502, 14103700, 93975277, 9477576 ####[facility] [address] [place] [address] BMPOrdered By: SYSTEM SYSTEM on 05-12-2023 Anion gap [Moles/Vol] 11 mmol/L Normal 6-16 [facility] Comment on above: Performed By: #### 1 8066744, 6926497, 79124921, 5592772, 4615469, 67636225, 37040483, 4773018 ####[facility] [address] [place] [address] Calcium [Mass/Vol] 9.0 mg/dL Normal 8.9-11.1 Remiso l Chem Comment on above: Performed By: #### 1 8449006, 2152401, 15075685, 8666018, 6222488, 48126056, 22323269, 2293042 ####[facility] [address] [place] [address] Chloride [Moles/Vol] 105 mmol/L Normal 101-111 [facility] Comment on above: Performed By: #### 1 5350421, 0341162, 63540092, 9958113, 6028043, 88482077, 58484745, 4270253 ####[place] [address] [place] [address] CO2 [Moles/Vol] 25 mmol/L Normal 21-31 [facility] C hem Comment on above: Performed By: #### 1 9796957, 2611217, 97604527, 5354601, 8377251, 73625358, 87917924, 4342553 ####[facility] [address] [place] [address] Creatinine [Mass/Vol] 1.0 mg/dL Normal 0.5-1.3 [facility] Comment on above: Performed By: #### 1 2916790, 4556089, 17936607, 3270861, 7920291, 20850282, 98593425, 1404710 ####[facility] [address] [place] [address] Glucose [Mass/Vol] 94 mg/dL Normal 55-199 Remiso l Chem Comment on above: Performed By: #### 1 3464740, 7032297, 88893099, 3689187, 1091163, 21714061, 83749591, 9451490 ####[facility] [address] [place] [address] Potassium [Moles/Vol] 3.9 mmol/L Normal 3.5-5.3 [facility] Comment on above: Performed By: #### 1 7191423, 6547475, 61590175, 1604778, 5751034, 80084725, 29436149, 0743093 ####[address] [place] [address] Sodium [Moles/Vol] 137 mmol/L Normal 135-145 Remiso l Chem Comment on above: Performed By: #### 1 2127732, 8436203, 36899008, 8155410, 0018007, 21380600, 78265541, 3358687 ####[address] [address] Urea nitrogen [Mass/Vol] 10 mg/dL Normal 5-21 [facility] Comment on above: Performed By: #### 1 6891591, 5562176, 81187706, 0420473, 9728291, 88272380, 03760361, 1060726 ####[address] [address] BMPon 05-12-2023 Urea nitrogen/Creatinine [Mass ratio] 10 No Units Normal 10-20 [facility] Comment on above: Performed By: #### 1 5134065, 5828726, 06152627, 5651781, 7179695, 85801946, 05061069, 0774974 ####[address] [address] CBC w/ Auto DiffOrdered By: SYSTEM SYSTEM on 05-12-2023 Basophils/100 WBC (Bld) 0.9 % Normal 0.0-2.0 [facility] Heme Comment on above: Performed By: #### 1 0704797, 0506252, 37631819, 9952598, 6039264, 16546826, 37568302, 1341039 ####[address] [address] Basophils/Leukocyte s Auto (Bld) [Pure # fraction] 0.0 E9/L Normal 0.0-0.2 [facility] Heme Comment on above: Performed By: #### 1 1136647, 7353566, 17321888, 2931496, 9157184, 10447877, 53100140, 6380741 ####[address] [address] Eosinophils (Bld) [#/Vol] 0.1 E9/L Normal 0.0-0.5 [facility] Heme Comment on above: Performed By: #### 1 7048108, 7922083, 90154091, 8740192, 4504364, 43642421, 74865673, 3489612 ####[place] [address] Eosinophils/100 WBC (Bld) 2.3 % Normal 0.0-8.0 [facility] Heme Comment on above: Performed By: #### 1 5673808, 5967424, 20117989, 0742647, 1337111, 38185676, 90959567, 4464611 ####[place] [address] Erythrocyte distribution width (RBC) [Ratio] 14.3 % High 10.9-14.2 [facility]e Comment on above: Performed By: #### 1 5290975, 8026850, 75650495, 4154167, 7248232, 40038990, 78333722, 5045856 ####[place] [address] Hematocrit (Bld) [Volume fraction] 39.8 % Normal 34.0-46.0 [facility] Heme Comment on above: Performed By: #### 1 1732346, 2129711, 97113288, 8000168, 6625963, 06317840, 68382399, 7351100 ####[place] [address] Hemoglobin (Bld) [Mass/Vol] 13.5 g/dL Normal 12.0-16.0 [facility]e Comment on above: Performed By: #### 1 0457699, 1212734, 74243477, 9704231, 3647839, 38505053, 11994234, 5492308 ####[address] [address] Lymphocytes (Bld) [#/Vol] 1.3 E9/L Normal 1.0-4.0 [facility] Comment on above: Performed By: #### 1 2564666, 0248997, 00395274, 8598090, 6598478, 00853147, 54469221, 3777863 ####[place] [address] Lymphocytes/100 WBC (Bld) 46.0 % Normal 14.0-50.0 [facility] Comment on above: Performed By: #### 1 2312536, 6067007, 99137006, 8813917, 5619383, 46769462, 33099505, 3603588 ####[place] [address] MCH (RBC) [Entitic mass] 30.2 pg Normal 27.0-34.0 [facility] Comment on above: Performed By: #### 1 9956527, 4232783, 54156978, 9001149, 6701483, 37745397, 21350769, 5055149 ####[place] [address] MCHC (RBC) [Mass/Vol] 34.0 g/dL Normal 31.4-36.0 [facility] Comment on above: Performed By: #### 1 2255907, 3059824, 60113276, 5124459, 8429030, 66526245, 87394115, 7560437 ####[place] [address] MCV (RBC) [Entitic vol] 88.8 fL Normal 80.0-100.0 [facility] Comment on above: Performed By: #### 1 3023611, 1058286, 57785630, 7603415, 4055684, 16160593, 63897343, 7128655 ####[place] [address] Monocytes (Bld) [#/Vol] 0.2 E9/L Normal 0.2-1.0 [facility] Comment on above: Performed By: #### 1 1285367, 2283819, 69582799, 6841333, 4223434, 65143175, 35866346, 5908187 ####[place] [address] [address] Neutrophils (Bld) [#/Vol] 1.2 E9/L Low 2.0-7.5 [facility] Comment on above: Performed By: #### 1 3723905, 8993114, 36640276, 1408402, 2846297, 95993694, 12675241, 9075180 ####[place] [address] Neutrophils/100 WBC (Bld) 42.5 % Normal 36.0-75.0 [facility] Comment on above: Performed By: #### 1 9914249, 5844421, 01371008, 8002782, 2266511, 70811317, 31139960, 5760526 ####[place] [address] [address] Platelet mean volume (Bld) [Entitic vol] 9.0 fL Normal 6.4-10.8 [facility] Comment on above: Performed By: #### 1 0324902, 1057327, 04932979, 1923161, 5352358, 08382299, 37219686, 4705494 ####[place] [address] [address] Platelets (Bld) [#/Vol] 179.0 E9/L Normal 150.0-500.0 [facility] Comment on above: Performed By: #### 1 1535232, 4208205, 42206187, 8240958, 7050778, 38498124, 25631292, 3746510 ####[place] [address] [address] RBC (Bld) [#/Vol] 4.5 E12/L Normal 4.3-5.9 [facility] Comment on above: Performed By: #### 1 8308308, 5397886, 51736383, 4092764, 2661589, 19613704, 27846136, 2818146 ####[facility] [address] [place] [address] WBC corrected for nucl RBC Auto (Bld) [#/Vol] 2.8 E9/L Low 4.0-11.0 [facility] Comment on above: Performed By: #### 1 2990285, 4776427, 39409868, 5913840, 5667446, 20151832, 02341683, 2236587 ####[facility] [address] [place] [address] CHEMISTRYOrdered By: SYSTEM SYSTEM on 05-12-2023 Albumin/Globulin [...] 34.7 s Normal 25.1 - 36.5 second(s) [facility] [place] Coag Comment on above: Interpretive Data: [...] the same coagulation reagent and instrumentation as [facility]. Currently there are no coagulation studies available worldwide for children to 14 days, and no normal ranges. Heparin therapeutic range (represented by Anti-Factor Xa activity of 0.2 - 0.4 U/mL) corresponds to PTT of 56.6 - 109.0 sec. PT Coag (PPP) [Time] 13.1 s High 9.4 - 12.5 second(s) [facility] Auto Coag Comment on above: Interpretive Data: [...] the same coagulation reagent and instrumentation as [facility] Currently there are no coagulation studies available worldwide for children to 14 days, and no normal ranges. Consent for Treatmenton 04-16 Consent for Treatment [id number]#1.00TIFF Normal [facility] Consultation Noteon 05-12-19 Consultation Note Normal [facility] Comment on above: Result Comment: Elec tronically Signed By: Miguel JOHNSON, Jon Smith\.br\Date and Time Signed: 05/12/23 15:42 EDT ED Clinical Summaryon 2023 ED Clinical Summary Normal [facility] ED Note-Physicianon 03-27-20 24 ED Note-Physician Normal [facility] Comment on above: Result Comment: Elec tronically Signed By: Mauricio óLpez PA-C\.br\Date and Time Signed: 05/12/23 12:06 EDT\.br\Electronically Co-Signed By: Mateusz Garcia DO\.br\Date and Time Co-Signed: 05/12/23 12:48 EDT ED Patient Education Noteon 05-12-2023 ED Patient Education Note Normal [facility] ED Patient Summaryon 024 ED Patient Summary Normal [facility] Endoscopic Procedure Report - Otheron 05-12-2023 Endoscopic Procedure Report - Other Normal [facility] Comment on above: Result Comment: Elec tronically Signed By: Jon Rivera MD\.br\Date and Time Signed: 05/12/23 15:48 EDT Other Comment: Ramya jordan Attachment - attachment storage system not supported [id number] Can be viewed in source systemMissing Attachment - attachment storage system not supported [id number] Can be viewed in source systemMissing Attachment - attachment storage system not supported [id number] Can be viewed in source systemMissing Attachment - attachment storage system not supported [id number] Can be viewed in source systemMissing Attachment - attachment storage system not supported 1045589 Can be viewed in source systemMissing Attachment - attachment storage system not supported [id number] Can be viewed in source systemMissing Attachment - attachment storage system not supported [id number] Can be viewed in source systemMissing Attachment - attachment storage system not supported [id number] Can be viewed in source systemMissing Attachment - attachment storage system not supported [id number] Can be viewed in source system HEMATOLOGYOrdered By: SYSTEM SYSTEM on 05-12-2023 Monocytes/100 WBC (Bld) 8.3 % Normal 4.0 - 14.0 % [facility] Heme Hep Func PanelOrdered By: Loomia STEM SYSTEM on 05-12-2023 Albumin [Mass/Vol] 4.3 g/dL Normal 3.3-5.0 Remiso l Chem Comment on above: Performed By: #### 1 6734844, 7297808, 59068330, 2615018, 4602072, 66087545, 96162711, 7279583 ####[place] [address] [address] Bilirubin [Mass/Vol] 0.4 mg/dL Normal 0.0-1.1 [facility] Comment on above: Performed By: #### 1 4206870, 5474028, 89083046, 0906157, 6246090, 30696049, 00211042, 3407095 ####[address] [address] Bilirubin.direct [Mass/Vol] 0.1 mg/dL Normal 0.0-0.4 [facility] Comment on above: Performed By: #### 1 4999485, 3470305, 74362044, 5044636, 4197314, 02975970, 46861258, 2569225 ####[address] [address] Bilirubin.indirect [Mass or moles/Vol] 0.3 mg/dL Normal 0.1-0.9 [facility] Comment on above: Performed By: #### 1 0789295, 1375908, 15094206, 5646174, 0179891, 84204703, 60819600, 2471494 ####[address] [address] Globulin (S) [Mass/Vol] 2.3 g/dL Normal 1.4-4.0 [facility] Comment on above: Performed By: #### 1 4934674, 0913502, 95952723, 1189447, 2442053, 80437498, 46770262, 1311770 ####[address] [address] Protein [Mass/Vol] 6.6 g/dL Normal 6.0-7.8 Remiso l Chem Comment on above: Performed By: #### 1 0244531, 6213720, 86107033, 1230471, 0753835, 01257846, 05885774, 3761379 ####[address] [address] Hep Func Panelon 05-12-2023 Albumin/Globulin (S) [Mass conc ratio] 1.9 Normal 1.1-2.2 [facility] Comment on above: Performed By: #### 1 4749663, 0684479, 71493544, 0825088, 8698258, 68836042, 96643421, 0389590 ####[facility] [address] [place] [address] ALP [Catalytic activity/Vol] 58 Int._Unit/L Normal 21-98 [facility] Comment on above: Performed By: #### 1 7659625, 2409951, 73019390, 8902167, 1541714, 21281785, 01514347, 3507336 ####[facility] [address] [place] [address] ALT No additional P-5'-P [Catalytic activity/Vol] 14 Int._Unit/L Normal 6-46 [facility] Comment on above: Performed By: #### 1 5298606, 6255734, 32999627, 6450972, 5558359, 18365127, 42305586, 6081518 ####[facility] [address] [place] [address] AST [Catalytic activity/Vol] 26 Int._Unit/L Normal 5-43 [facility] Comment on above: Performed By: #### 1 3506921, 1894490, 22603256, 5296050, 4251002, 69100820, 13234864, 0212939 ####[address] [place] [address] Interdisciplinary Note - Taz e Manageron 05-12-2023 Interdisciplinary Note - Diesel Retrofit Installer Normal [facility] Comment on above: Result Comment: Elec tronically Signed By: Kera Diehl\.br\Date and Time Signed: 05/12/23 15:40 EDT Lipase LevelOrdered By: SYST EM SYSTEM on 05-12-2023 Lipase [Catalytic activity/Vol] 35 U/L Normal 13-58 [facility] Comment on above: Performed By: #### 1 5540554, 0913232, 83911425, 7074262, 2706132, 84375091, 94664043, 0727923 ####[facility] [address] [place] [address] Main OR PACU I Recordon 04-16 Main OR PACU I Record Normal [facility] Main OR Preoperative Recordo n 05-12-2023 Main OR Preoperative Record Normal [facility] Monitor Recordon 05-12-2023 Monitor Record [id number]#1.00TIFF Normal [facility] Monitor Record [id number]#1.00TIFF Normal [facility] Monitor Record [id number]#1.00TIFF Normal [facility] PT & PTTon 05-12-2023 aPTT Coag (PPP) [Time] 34.7 second(s) Normal 25.1-36.5 [facility] Comment on above: Result Comment: Para [...] the same coagulation reagent and instrumentation as [facility]. Currently there are no coagulation studies available worldwide for children to 14 days, and no normal ranges. Heparin therapeutic range (represented by Anti-Factor Xa activity of 0.2 - 0.4 U/mL) corresponds to PTT of 56.6 - 109.0 sec. Performed By: #### 1 8000199, 5079606, 27229404, 8055783, 4461763, 56701553, 40050660, 4390651 ####[facility] [address] [place] [address] PT Coag (PPP) [Time] 13.1 second(s) High 9.4-12.5 [facility] Comment on above: Result Comment: 15 [...] the same coagulation reagent and instrumentation as [facility]. Currently there are no coagulation studies available worldwide for children to 14 days, and no normal ranges. Performed By: #### 1 2967560, 0510756, 76726899, 0176972, 9497268, 97616217, 67546264, 2850624 ####[address] [place] [address] PT & PTTOrdered By: Shannon cutler on 05-12-2023 INR Coag (PPP) [Relative time] 1.17 {INR} Invalid Interpretation Code [facility] Auto Coag Comment on above: Interpretive Data: [...] 3.0 ? 4.5 Performed By: #### 1 9229010, 1795367, 40426741, 1880234, 7277136, 30045784, 50791733, 8594209 ####[facility] [address] [place] [address] Provider Letteron 05-12-2023 Provider Letter [facility] SEROLOGYOrdered By: Shannon cutler on 05-12-2023 Beta HCG ( test) Ql Negative (05/12/23 10:00 AM) Normal [facility] Man Sero Troponin 0 Hr.on 05-12-2023 Troponin I.cardiac [Mass/Vol] ng/mL Low 10.10-27.10 [facility] Comment on above: Result Comment: The 95% CI (Confidence Interval) PPV (Positive Predictive Value) for myocardial infarction in females is 38 pg/mL, in males 51 pg/mL. The results should be used in conjunction with clinical conditions of myocardial infarction.(Access High Sensitivity Troponin I Instructions For Use, Alan Gordy, September 2017) Performed By: #### 1 5398957, 7755069, 23172704, 3154745, 0607035, 62440443, 78168914, 9200104 ####[facility] [address] [place] [address] eGFROrdered By: SYSTEM [employer] on 05-12-2023 eGFR 76 mL/min/1.73 m2 Normal >=59 [facility] Comment on above: Order Comment: Order added by Discern Expert. Performed By: #### 1 7229399, 8858619, 66622392, 8302437, 3842521, 09299352, 87969103, 2131759 ####[facility] [address] [place] [address] CBC w/ Auto Diffon 4 Basophils/100 WBC (Bld) 0.7 % Normal 0.0-2.0 [facility] Comment on above: Performed By: #### 2 022563, 2619733, 84474094, 4570852, 0807142, 5531330 ####[facility] [address] [place] [address] Basophils/Leukocyte s Auto (Bld) [Pure # fraction] 0.0 E9/L Normal 0.0-0.2 [facility] Comment on above: Performed By: #### 2 520046, 6062150, 76907705, 9709334, 2644074, 9365893 ####[facility] [address] [address] Eosinophils (Bld) [#/Vol] 0.0 E9/L Normal 0.0-0.5 [facility] Comment on above: Performed By: #### 2 008768, 8946733, 91105082, 1180773, 0198777, 6013999 ####[address] [address] Eosinophils/100 WBC (Bld) 1.5 % Normal 0.0-8.0 [facility] Comment on above: Performed By: #### 2 066277, 9097288, 81336013, 4363491, 9393065, 0060653 ####[place] [address] Erythrocyte distribution width (RBC) [Ratio] 14.6 % High 10.9-14.2 [facility] Comment on above: Performed By: #### 2 582308, 6796004, 64510513, 1825201, 4247364, 4639330 ####[place] [address] Hematocrit (Bld) [Volume fraction] 38.7 % Normal 34.0-46.0 [facility] Comment on above: Performed By: #### 2 162336, 8263986, 66389212, 8365651, 2675056, 7359965 ####[address] [address] Hemoglobin (Bld) [Mass/Vol] 13.2 g/dL Normal 12.0-16.0 [facility] Comment on above: Performed By: #### 2 857449, 1575811, 32755150, 7821615, 4100944, 0451048 ####[address] [address] Lymphocytes (Bld) [#/Vol] 1.3 E9/L Normal 1.0-4.0 [facility] Comment on above: Performed By: #### 2 856712, 3737509, 27173994, 0258583, 0182544, 4586686 ####[address] [address] Lymphocytes/100 WBC (Bld) 48.6 % Normal 14.0-50.0 [facility] Comment on above: Performed By: #### 2 218091, 5758023, 04168809, 7274971, 7273690, 8038846 ####[place] [address] MCH (RBC) [Entitic mass] 30.3 pg Normal 27.0-34.0 [facility] Comment on above: Performed By: #### 2 951746, 8748131, 68804154, 2554525, 4087605, 4333403 ####[place] [address] MCHC (RBC) [Mass/Vol] 34.2 g/dL Normal 31.4-36.0 [facility] Comment on above: Performed By: #### 2 219014, 9265781, 79755433, 8602786, 3385979, 9528032 ####[address] [address] MCV (RBC) [Entitic vol] 88.6 fL Normal 80.0-100.0 [facility] Comment on above: Performed By: #### 2 388423, 9699379, 70426108, 8399785, 6189946, 9644959 ####[place] [address] Monocytes (Bld) [#/Vol] 0.2 E9/L Normal 0.2-1.0 [facility] Comment on above: Performed By: #### 2 600462, 3484016, 49164721, 1192185, 3958115, 6229555 ####[address] [address] Neutrophils (Bld) [#/Vol] 1.1 E9/L Low 2.0-7.5 [facility] Comment on above: Performed By: #### 2 915693, 3973588, 12111865, 0867555, 6339895, 5254182 ####[address] [place] [address] Neutrophils/100 WBC (Bld) 40.2 % Normal 36.0-75.0 [facility] Comment on above: Performed By: #### 2 141928, 4590644, 20726398, 2253159, 6503290, 3648469 ####[address] [address] Platelet mean volume (Bld) [Entitic vol] 9.2 fL Normal 6.4-10.8 [facility] Comment on above: Performed By: #### 2 720676, 6228384, 11630910, 5045821, 5414732, 6344963 ####[address] [address] Platelets (Bld) [#/Vol] 195.0 E9/L Normal 150.0-500.0 [facility] Comment on above: Performed By: #### 2 007246, 6231702, 67936310, 7722221, 5109532, 3544606 ####[address] [address] RBC (Bld) [#/Vol] 4.4 E12/L Normal 4.3-5.9 [facility] Comment on above: Performed By: #### 2 809059, 2920039, 45169649, 9124306, 1412771, 1755641 ####[address] [address] WBC corrected for nucl RBC Auto (Bld) [#/Vol] 2.7 E9/L Low 4.0-11.0 [facility] Comment on above: Performed By: #### 2 176485, 7682631, 68208099, 9977283, 7313016, 7084744 ####[address] [address] CHEMISTRYOrdered By: SYSTEM SYSTEM on 05-11-2023 Amphetamines [...] Alternate Method called to Maribel Ortega by [id number] Interpretive Data: N egative Cutoff: <300 ng/mL [...] 05-11-2023 Albumin [Mass/Vol] 4.6 g/dL Normal 3.3-5.0 [facility] Comment on above: Performed By: #### 2 262153, 4871241, 34178795, 6878037, 6866440, 0302721 ####[address] [place] [address] Albumin/Globulin (S) [Mass conc ratio] 1.8 Normal 1.1-2.2 [facility] Comment on above: Performed By: #### 2 952760, 8080988, 54275135, 4051666, 2818511, 0655334 ####[address] [place] [address] ALP [Catalytic activity/Vol] 60 Int._Unit/L Normal 21-98 [facility] Comment on above: Performed By: #### 2 770418, 5760200, 66023928, 3805135, 4184458, 5883278 ####[facility] [address] [place] [address] ALT No additional P-5'-P [Catalytic activity/Vol] 14 Int._Unit/L Normal 6-46 [facility] Comment on above: Performed By: #### 2 406514, 7435170, 69180453, 3605992, 9058236, 3808417 ####[address] [place] [address] Anion gap [Moles/Vol] 15 mmol/L Normal 6-16 [facility] Comment on above: Performed By: #### 2 539233, 8129758, 22125188, 2678448, 5704392, 0384172 ####[address] [place] [address] AST [Catalytic activity/Vol] 25 Int._Unit/L Normal 5-43 [facility] Comment on above: Performed By: #### 2 092631, 5245532, 27098763, 9587666, 8303346, 3067078 ####[facility] [address] [place] [address] Bilirubin [Mass/Vol] 0.5 mg/dL Normal 0.0-1.1 [facility] Comment on above: Performed By: #### 2 812116, 5100496, 79648591, 7502747, 4132918, 9161634 ####[facility] [address] [place] [address] Calcium [Mass/Vol] 9.4 mg/dL Normal 8.9-11.1 [facility] Comment on above: Performed By: #### 2 077841, 6769493, 25308581, 5244764, 0732549, 5789060 ####[facility] [address] [place] [address] Chloride [Moles/Vol] 104 mmol/L Normal 101-111 [facility] Comment on above: Performed By: #### 2 336064, 4784881, 24164494, 9895963, 3476672, 6066358 ####[facility] [address] [place] [address] CO2 [Moles/Vol] 23 mmol/L Normal 21-31 [facility] Comment on above: Performed By: #### 2 743448, 4503013, 14869090, 9778575, 6732846, 1425894 ####[facility] [address] [place] [address] Creatinine [Mass/Vol] 0.8 mg/dL Normal 0.5-1.3 [facility] Comment on above: Performed By: #### 2 [id number], [id number], [id number], [id number], [id number] ####[facility] [address] [place] [address] Globulin (S) [Mass/Vol] 2.5 g/dL Normal 1.4-4.0 [facility] Comment on above: Performed By: #### 2 [id number], [id number], [id number], [id number], [id number], [id number] ####[facility] [address] [place] [address] Glucose [Mass/Vol] 80 mg/dL Normal 55-199 [facility] [facility] Comment on above: Performed By: #### 2 032534, 2772498, 73071671, 3943842, 2459113, 8414570 ####[facility] [address] [place] [address] Potassium [Moles/Vol] 3.6 mmol/L Normal 3.5-5.3 [facility] Comment on above: Performed By: #### 2 646419, 8099969, 60654089, 7644211, 8609046, 9326113 ####[facility] [address] [place] [address] Protein [Mass/Vol] 7.1 g/dL Normal 6.0-7.8 [facility] Comment on above: Performed By: #### 2 639911, 5156953, 53820914, 3936444, 7376738, 0660687 ####[facility] [address] [place] [address] Sodium [Moles/Vol] 138 mmol/L Normal 135-145 [facility] Comment on above: Performed By: #### 2 280155, 6754055, 51013936, 0421458, 1344630, 8820933 ####[facility] [address] [place] [address] Urea nitrogen [Mass/Vol] 9 mg/dL Normal 5-21 [facility] Comment on above: Performed By: #### 2 462319, 0841998, 36255135, 6407411, 1462183, 3413986 ####[facility] [address] [place] [address] Urea nitrogen/Creatinine [Mass ratio] 11 No Units Normal 10-20 [facility] Comment on above: Performed By: #### 2 390633, 9285721, 73431291, 7078304, 8481412, 6831808 ####[facility] [address] [place] [address] CT Abdomen/Pelvis w/o Contra stoladi 05-11-2023 CT Abdomen/Pelvis w/o Contrast Normal [facility] Consent for Treatmenton 04-16 Consent for Treatment [id number] 37#1.00TIFF Normal [facility] Discharge Instructionson Discharge Instructions [id number] 81#1.00TIFF Normal [facility] ED Clinical Summaryon 2023 ED Clinical Summary Normal [facility] ED Note-Physicianon 05-11-19 ED Note-Physician Normal [facility] Comment on above: Result Comment: Elec tronically Signed By: Tiffani Cunningham PA-C\.br\Date and Time Signed: 05/11/23 17:06 EDT\.br\Electronically Co-Signed By: Mateusz Garcia DO\.br\Date and Time Co-Signed: 05/11/23 20:41 EDT ED Patient Education Noteon 05-11-2023 ED Patient Education Note Normal [facility] ED Patient Summaryon ED Patient Summary Normal [facility] HEMATOLOGYOrdered By: SYSTEM SYSTEM on 05-11-2023 [...] Lactic Acid Lvl 0.6 mmol/L Normal 0.5-2.2 [facility] Comment on above: Performed By: #### 2 472928, 1199387, 50277725, 8093236, 6331015, 2080239 ####[facility] [address] [place] [address] Lipase Levelon 05-11-2023 Lipase [Catalytic activity/Vol] 34 U/L Normal 13-58 [facility] Comment on above: Performed By: #### 2 699934, 7775898, 15090534, 0126409, 1601072, 0064757 ####[facility] [address] [place] [address] Magnesiumon 05-11-2023 Magnesium [Mass/Vol] 2.1 mg/dL Normal 1.3-2.4 [facility] Comment on above: Performed By: #### 2 397899, 5600505, 61376741, 7072499, 7471683, 9362097 ####[facility] [address] [place] [address] SEROLOGYOrdered By: Olga Meng on 05-11-2023 HCG.beta subunit (U) [Moles/Vol] Negative Normal [facility] [place] Sero U BetaHcg Qualon 05-11-2023 HCG.beta subunit (U) [Moles/Vol] Negative Normal [facility] Comment on above: Performed By: #### 4 [id number], 53861340 ####[facility] [address] [place] [address] U Drug Screenon 05-11-2023 Amphetamines Screen method >1000 ng/mL Ql (U) Negative Normal NEGATIVE [facility] Comment on above: Result Comment: Nega tive Cutoff: <1000 ng/mL Performed By: #### 2 640734 ####[facility] [address] [place] [address] Barbiturates Screen Ql (U) Negative Normal NEGATIVE [facility] Comment on above: Result Comment: Nega tive Cutoff: <200 ng/mL Performed By: #### 2 731352 ####[facility] [address] [place] [address] Benzodiazepines Ql (U) Negative Normal NEGATIVE [facility] Comment on above: Result Comment: Nega tive Cutoff: <200 ng/mL Performed By: #### 2 903035 ####[facility] [address] [place] [address] Cannabinoids Screen Ql (U) Positive Abnormal NEGATIVE [facility] Comment on above: Result Comment: No C onfirmation Requested by PhysicianResult Verified by Repeat AnalysisUnconfirmed by an Alternate Methodcalled to Maribel Ortega by at 1404Negative Cutoff: <50 ng/mL Performed By: #### 2 199014 ####[facility] [address] [place] [address] Cocaine Ql (U) Negative Normal NEGATIVE [facility] Comment on above: Result Comment: Nega tive Cutoff: <300 ng/mL Performed By: #### 2 404393 ####[facility] [address] [place] [address] Opiates Screen Ql (U) Positive Abnormal NEGATIVE [facility] Comment on above: Result Comment: No C onfirmation Requested by PhysicianResult Verified by Repeat AnalysisUnconfirmed by an Alternate Methodcalled to Maribel Ortega by [email or web address] Cutoff: <300 ng/mL Performed By: #### 2 626944 ####[facility] [address] [place] [address] Phencyclidine Screen method >25 ng/mL Ql (U) Negative Normal NEGATIVE [facility] Comment on above: Result Comment: Nega tive Cutoff: <25 ng/mLThese drug screen results are to be used for medical (i.e., treatment) purposes only. Unconfirmed drug screening results must not be used for non-medical purposes (e.g., employment testing, legal testing). Performed By: #### 2 930409 ####[facility] [address] [place] [address] UA with Cult Rflxon 05-11-19 24 Color (U) Light-Yellow Normal Yellow [facility] Comment on above: Result Comment: Micr oscopic readings are only performed on those samples that meet specific criteria set forth by [facility] Laboratory. Performed By: #### 4 [id number], 48991560 ####[facility] [address] [place] [address] Glucose (U) [Mass/Vol] Negative Normal Negative [facility] Comment on above: Performed By: #### 4 [id number], 04543171 ####[facility] [address] [facility] [place] [address] Ketones Ql (U) Negative Normal Negative [facility] Comment on above: Performed By: #### 4 146126695, 63597218 ####[facility] [address] [facility] [place] [address] UA Blood Negative Normal Negative [facility] Comment on above: Performed By: #### 4 [id number], 38706879 ####[facility] [address] [facility] [place] [address] UA Clarity Clear Normal Clear [facility] Comment on above: Performed By: #### 4 [id number], 20043090 ####[facility] [address] [place] [address], [place] [address] UA Leuk Est Negative Normal Negative [facility] Comment on above: Performed By: #### 4 [id number], 84800066 ####[facility] [address] [place] [address], [place] [address] UA Nitrite Negative Normal Negative [facility] Comment on above: Performed By: #### 4 [id number], 69057313 ####[facility] [address] [place] [address], [place] [address] UA pH 7.5 Invalid Interpretation Code 5.0-9.0 [facility] Comment on above: Performed By: #### 4 [id number], 30241280 ####[facility] [address] [facility] [place] [address] UA Protein Negative Normal Negative [facility] Comment on above: Performed By: #### 4 [id number], 55834624 ####[place] [address] [facility] [place] [address] UA Spec Grav 1.010 Invalid Interpretation Code 1.005-1.030 [facility] Comment on above: Performed By: #### 4 [id number], 92385812 ####[facility] [address] [facility] [place] [address] UA Urobilinogen Negative Normal Negative [facility] Comment on above: Performed By: #### 4 395054712, 94136935 ####[facility] [address] [place] [address] Urobilinogen (U) [Mass/Vol] Negative Normal Negative [facility] Comment on above: Performed By: #### 4 [id number], 40993695 ####[facility] [address] [place] [address] UA Spec Desc Clean Catch Normal [facility] Comment on above: Performed By: #### 4 [id number], 44855389 ####[facility] [address] [place] [address] URINALYSISOrdered By: SYSTEM SYSTEM on 05-11-2023 Color (U) Light-Yellow 3 (05/11/23 12:41 PM) Normal Yellow FT [facility] Auto SS Comment on above: Interpretive Data: M icroscopic readings are only performed on those samples that meet specific criteria set forth by [facility]. Glucose (U) [Mass/Vol] Negative Normal [...] 05-11-2023 eGFR 99 mL/min/1.73 m2 Normal >=59 [facility] Comment on above: Order Comment: Order added by Discern Expert. Performed By: #### 2 165050, 5653079, 12169108, 3420936, 8042572, 1254980 ####[facility] [address] [place] [address] Ambulatory Visit Summaryon 0 05-10-2023 Ambulatory Visit Summary Normal [address] [place] [address] [place] [address]- \.br\ Medications\.br\ What How Much When Why [...] for choosing us for your care.\.br\ \.br\ [facility] CNPNon 05-10-2023 CNPN Normal [facility] Office/Clini c Noteon 05-10-2023 Family Medicine Office/Clinic Note Normal [facility] Comment on above: Result Comment: Elec tronically Signed By: Jaquan Paula\.br\Date and Time Signed: 05/10/23 14:35 EDT Home Health Recordson 2023 Home Health Records [id number] 80#1.00TIFF Normal [facility] Provider Letteron 05-10-2023 Provider Letter Normal [facility] B hCG Qualon 05-09-2023 Beta HCG ( test) Ql Negative Normal [facility] Comment on above: Performed By: #### 1 9341189, 33685936, 4282554, 4848106, 7211606, 2016836 ####[facility] [address] [place] [address] BMPon 05-09-2023 Anion gap [Moles/Vol] 12 mmol/L Normal 6-16 [facility] Comment on above: Performed By: #### 1 9764915, 24239791, 5925460, 3532309, 3507579, 1074878 ####[facility] [address] [place] [address] Calcium [Mass/Vol] 8.6 mg/dL Low 8.9-11.1 [facility] Comment on above: Performed By: #### 1 2428569, 44959744, 5407007, 1640370, 8219493, 6165781 ####[facility] [address] [place] [address] Chloride [Moles/Vol] 109 mmol/L Normal 101-111 [facility] Comment on above: Performed By: #### 1 2543558, 59649207, 0765940, 7868584, 0029130, 0771600 ####[facility] [address] [place] [address] CO2 [Moles/Vol] 23 mmol/L Normal 21-31 [facility] Comment on above: Performed By: #### 1 9471388, 05659825, 3889229, 2840430, 4945058, 1588875 ####[facility] [address] [place] [address] Creatinine [Mass/Vol] 0.8 mg/dL Normal 0.5-1.3 [facility] Comment on above: Performed By: #### 1 3375393, 15175648, 5077290, 7241110, 8673249, 4543030 ####[facility] [address] [place] [address] Glucose [Mass/Vol] 79 mg/dL Normal 55-199 [facility] Comment on above: Performed By: #### 1 7944961, 94603658, 4741021, 1296207, 9883878, 4591419 ####[facility] [address] [place] [address] Potassium [Moles/Vol] 3.9 mmol/L Normal 3.5-5.3 [facility] Comment on above: Performed By: #### 1 6105073, 43652886, 6185525, 8606853, 4469692, 4768100 ####[facility] [address] [place] [address] Sodium [Moles/Vol] 140 mmol/L Normal 135-145 [facility] Comment on above: Performed By: #### 1 6909733, 24894681, 0977972, 9699795, 5338461, 0114843 ####[facility] [address] [place] [address] Urea nitrogen [Mass/Vol] 9 mg/dL Normal 5-21 [facility] Comment on above: Performed By: #### 1 9103700, 09937320, 7581825, 5353326, 7861221, 5046812 ####[place] [address] [place] [address] Urea nitrogen/Creatinine [Mass ratio] 11 No Units Normal 10-20 [facility] Comment on above: Performed By: #### 1 5993907, 00779716, 1122672, 0668293, 3650784, 6888027 ####[address] [address] CBC w/ Auto Diffon 4 Basophils/100 WBC (Bld) 1.1 % Normal 0.0-2.0 [facility] Comment on above: Performed By: #### 1 0924918, 09525336, 7893696, 6050120, 8275604, 0033525 ####[address] [address] Basophils/Leukocyte s Auto (Bld) [Pure # fraction] 0.0 E9/L Normal 0.0-0.2 [facility] Comment on above: Performed By: #### 1 0208655, 91627314, 1641353, 6363100, 5757857, 1637350 ####[address] [address] Eosinophils (Bld) [#/Vol] 0.1 E9/L Normal 0.0-0.5 [facility] Comment on above: Performed By: #### 1 6951095, 97014091, 3887928, 9999419, 2013931, 4333742 ####[address] [address] Eosinophils/100 WBC (Bld) 2.1 % Normal 0.0-8.0 [facility] Comment on above: Performed By: #### 1 0984872, 54971263, 9845331, 8930654, 5901927, 4086698 ####[address] [address] Erythrocyte distribution width (RBC) [Ratio] 14.4 % High 10.9-14.2 [facility] Comment on above: Performed By: #### 1 9026468, 35470377, 4657859, 3383375, 9622432, 3444730 ####[address] [address] Hematocrit (Bld) [Volume fraction] 36.3 % Normal 34.0-46.0 [facility] Comment on above: Performed By: #### 1 5069832, 07533433, 0689516, 2213327, 6968444, 4749038 ####[address] [address] Hemoglobin (Bld) [Mass/Vol] 12.3 g/dL Normal 12.0-16.0 [facility] Comment on above: Performed By: #### 1 2822352, 11442215, 9162682, 7267323, 2357733, 8480443 ####[address] [address] Lymphocytes (Bld) [#/Vol] 1.2 E9/L Normal 1.0-4.0 [facility] Comment on above: Performed By: #### 1 7479991, 98915363, 0615926, 7522590, 6519078, 3321311 ####[place] [address] Lymphocytes/100 WBC (Bld) 42.2 % Normal 14.0-50.0 [facility] Comment on above: Performed By: #### 1 7674602, 70191813, 3944024, 5024001, 7989238, 6648588 ####[address] [address] MCH (RBC) [Entitic mass] 30.2 pg Normal 27.0-34.0 [facility] Comment on above: Performed By: #### 1 4144005, 71333004, 0424953, 5112904, 5609937, 3156579 ####[address] [address] MCHC (RBC) [Mass/Vol] 33.9 g/dL Normal 31.4-36.0 [facility] Comment on above: Performed By: #### 1 0765804, 16533205, 2507341, 4114398, 8350310, 6610208 ####[address] [address] MCV (RBC) [Entitic vol] 89.2 fL Normal 80.0-100.0 [facility] Comment on above: Performed By: #### 1 6340493, 29598605, 4562361, 4623854, 3221897, 5126495 ####[address] [address] Monocytes (Bld) [#/Vol] 0.3 E9/L Normal 0.2-1.0 [facility] Comment on above: Performed By: #### 1 8376893, 05407493, 5255834, 1749585, 8056552, 0299737 ####[address] [address] Neutrophils (Bld) [#/Vol] 1.2 E9/L Low 2.0-7.5 [facility] Comment on above: Performed By: #### 1 1547334, 19682887, 1635748, 1919771, 8526719, 4774364 ####[address] [address] Neutrophils/100 WBC (Bld) 44.3 % Normal 36.0-75.0 [facility] Comment on above: Performed By: #### 1 0491848, 88338307, 6282617, 8819535, 9175968, 3909020 ####[address] [address] Platelet 201.0 E9/L Normal 150.0-500.0 [facility] Comment on above: Performed By: #### 1 3015021, 85454166, 3835637, 5306769, 1922939, 1501885 ####[address] [address] Platelet mean volume (Bld) [Entitic vol] 9.8 fL Normal 6.4-10.8 [facility] Comment on above: Performed By: #### 1 9324672, 87859631, 6495019, 6770576, 5088956, 6147046 ####[facility] [address] [place] [address] RBC (Bld) [#/Vol] 4.1 E12/L Low 4.3-5.9 [facility] Comment on above: Performed By: #### 1 1997370, 28735161, 0969328, 5795862, 3579600, 9777421 ####[facility] [address] [place] [address] WBC corrected for nucl RBC Auto (Bld) [#/Vol] 2.8 E9/L Low 4.0-11.0 [facility] Comment on above: Performed By: #### 1 0298059, 79045550, 2282548, 8049943, 1811356, 5045188 ####[facility] [address] [place] [address] CHEMISTRYOrdered By: SYSTEM SYSTEM on 05-09-2023 Albumin [...] for Treatmenton 04-16 Consent for Treatment [id number] E0#1.00TIFF Normal [facility] Discharge Instructionson Discharge Instructions [id number] 14#1.00TIFF Normal [facility] ED Clinical Summaryon 2023 ED Clinical Summary Normal [facility] ED Note-Nursingon 05-09-2023 ED Note-Nursing Discharge materials given, wheeled patient out. Home with family care. Normal [facility] ED Note-Physicianon 05-09-19 ED Note-Physician [facility] Comment on above: Result Comment: Elec tronically Signed By: Lonnie Rios PA-C\.br\Date and Time Signed: 05/09/23 15:52 EDT\.br\Electronically Co-Signed By: Mateusz Garcia DO\.br\Date and Time Co-Signed: 05/09/23 17:19 EDT ED Patient Education Noteon 05-09-2023 ED Patient Education Note Normal [facility] ED Patient Summaryon ED Patient Summary Normal [facility] HEMATOLOGYOrdered By: SYSTEM SYSTEM on 05-09-2023 [...] 05-09-2023 Albumin [Mass/Vol] 4.3 g/dL Normal 3.3-5.0 [facility] Comment on above: Performed By: #### 1 6000605, 76031526, 0423269, 3986557, 0066578, 9832131 ####[facility] [address] [place] [address] Albumin/Globulin (S) [Mass conc ratio] 1.8 Normal 1.1-2.2 [facility] Comment on above: Performed By: #### 1 3199935, 61744634, 3875575, 5025040, 7052369, 2866537 ####[facility] [address] [place] [address] ALP [Catalytic activity/Vol] 51 Int._Unit/L Normal 21-98 [facility] Comment on above: Performed By: #### 1 5467505, 70957567, 5409229, 0904276, 4107718, 3497352 ####[facility] [address] [place] [address] ALT No additional P-5'-P [Catalytic activity/Vol] 15 Int._Unit/L Normal 6-46 [facility] Comment on above: Performed By: #### 1 7876409, 07500137, 6826844, 2268013, 0795822, 6127359 ####[facility] [address] [place] [address] AST [Catalytic activity/Vol] 26 Int._Unit/L Normal 5-43 [facility] Comment on above: Performed By: #### 1 9774066, 18792628, 6090915, 4780719, 4982096, 8224691 ####[place] [address] [place] [address] Bilirubin [Mass/Vol] 0.3 mg/dL Normal 0.0-1.1 [facility] Comment on above: Performed By: #### 1 3246744, 33405270, 4578724, 1008961, 4459611, 7104600 ####[address] [address] Bilirubin.direct [Mass/Vol] 0.1 mg/dL Normal 0.0-0.4 [facility] Comment on above: Performed By: #### 1 9530079, 45202300, 3223764, 7770020, 9147154, 6324556 ####[address] [address] Bilirubin.indirect [Mass or moles/Vol] 0.2 mg/dL Normal 0.1-0.9 [facility] Comment on above: Performed By: #### 1 6018663, 94720314, 4463871, 1974616, 9101579, 8669582 ####[address] [address] Globulin (S) [Mass/Vol] 2.4 g/dL Normal 1.4-4.0 [facility] Comment on above: Performed By: #### 1 5830691, 66108957, 1782496, 2624447, 9931860, 8281630 ####[address] [address] Protein [Mass/Vol] 6.7 g/dL Normal 6.0-7.8 [facility] Comment on above: Performed By: #### 1 2889638, 08365885, 0648651, 3002951, 3779124, 4440583 ####[facility] [address] [place] [address] Lipase Levelon 05-09-2023 Lipase [Catalytic activity/Vol] 68 U/L High 13-58 [facility] Comment on above: Performed By: #### 1 5581313, 27300569, 5302791, 2903977, 1117043, 2243275 ####[facility] [address] [place] [address] SEROLOGYOrdered By: Stacia Arroyo on 05-09-2023 Beta HCG ( test) Ql Negative (05/09/23 12:12 PM) Normal [facility] Man Sero eGFRon 05-09-2023 eGFR 99 mL/min/1.73 m2 Normal >=59 [facility] Comment on above: Order Comment: Order added by Discern Expert. Performed By: #### 1 9147194, 89597925, 2450633, 0808288, 3636924, 5078252 ####[place] [place] [address] CNPNon 05-07-2023 CNPN Normal [facility] ED Note-Physicianon 05-07-19 ED Note-Physician Normal [facility] Comment on above: Result Comment: Elec tronically Signed By: Justine German PA-C\.br\Date and Time Signed: 05/06/23 21:25 EDT\.br\Electronically Co-Signed By: Mateusz Garcia DO\.br\Date and Time Co-Signed: 05/07/23 07:00 EDT Amylaseon 05-06-2023 Amylase [Catalytic activity/Vol] 40 U/L Normal 25-157 [facility] Comment on above: Order Comment: pt wa s poked once, pt extremely dehydrated and would like to wait for IV start [id number] 05/06/2023 16:33:00 EDT Performed By: #### 2 697204, 0440463, 2081583, 4820839, 26330921, 3329305, 0470473 ####[facility] [address] [place] [address] BMPon 05-06-2023 Anion gap [Moles/Vol] 13 mmol/L Normal 6-16 [facility] Comment on above: Order Comment: pt lillian cruz poked once, pt extremely dehydrated and would like to wait for IV start [id number] 05/06/2023 16:33:00 EDT Performed By: #### 2 444544, 8702928, 6014371, 3429671, 80774834, 9337864, 6090130 ####[facility] [address] [place] [address] Calcium [Mass/Vol] 9.1 mg/dL Normal 8.9-11.1 [facility] Comment on above: Order Comment: pt lillian cruz poked once, pt extremely dehydrated and would like to wait for IV start [id number] 05/06/2023 16:33:00 EDT Performed By: #### 2 832227, 3224182, 7808117, 1110970, 95711326, 3485704, 4742923 ####[facility] [address] [place] [address] Chloride [Moles/Vol] 107 mmol/L Normal 101-111 [facility] Comment on above: Order Comment: pt lillian cruz poked once, pt extremely dehydrated and would like to wait for IV start [id number] 05/06/2023 16:33:00 EDT Performed By: #### 2 774859, 9376662, 0856668, 4084842, 39398634, 1488822, 4809565 ####[facility] [address] [place] [address] CO2 [Moles/Vol] 22 mmol/L Normal 21-31 [facility] Comment on above: Order Comment: pt lillian cruz poked once, pt extremely dehydrated and would like to wait for IV start [id number] 05/06/2023 16:33:00 EDT Performed By: #### 2 346849, 0064384, 6940297, 7441259, 47077262, 9364875, 9741578 ####[facility] [address] [place] [address] Creatinine [Mass/Vol] 0.8 mg/dL Normal 0.5-1.3 [facility] Comment on above: Order Comment: pt lillian cruz poked once, pt extremely dehydrated and would like to wait for IV start [id number] 05/06/2023 16:33:00 EDT Performed By: #### 2 535145, 7867067, 6276681, 5345780, 88547722, 8618185, 2694150 ####[facility] [address] [place] [address] Glucose [Mass/Vol] 80 mg/dL Normal 55-199 [facility] Comment on above: Order Comment: pt lillian cruz poked once, pt extremely dehydrated and would like to wait for IV start [id number] 05/06/2023 16:33:00 EDT Performed By: #### 2 043107, 9177947, 9781421, 7473748, 68322658, 2570734, 9924309 ####[facility] [address] [place] [address] Potassium [Moles/Vol] 3.7 mmol/L Normal 3.5-5.3 [facility] Comment on above: Order Comment: pt lillian cruz poked once, pt extremely dehydrated and would like to wait for IV start [id number] 05/06/2023 16:33:00 EDT Performed By: #### 2 333230, 6598436, 4076156, 6512450, 50046231, 5076932, 6770209 ####[facility] [address] [place] [address] Sodium [Moles/Vol] 138 mmol/L Normal 135-145 [facility] Comment on above: Order Comment: pt lillian cruz poked once, pt extremely dehydrated and would like to wait for IV start [id number] 05/06/2023 16:33:00 EDT Performed By: #### 2 100165, 9132454, 9867457, 4517514, 36479501, 1466844, 6082747 ####[facility] [address] [place] [address] Urea nitrogen [Mass/Vol] 10 mg/dL Normal 5-21 [facility] Comment on above: Order Comment: pt lillian cruz poked once, pt extremely dehydrated and would like to wait for IV start [id number] 05/06/2023 16:33:00 EDT Performed By: #### 2 028017, 8975850, 7082672, 0964179, 93713345, 0350397, 7279722 ####[facility] [address] [place] [address] Urea nitrogen/Creatinine [Mass ratio] 12 No Units Normal 10-20 [facility] Comment on above: Order Comment: pt lillian cruz poked once, pt extremely dehydrated and would like to wait for IV start [id number] 05/06/2023 16:33:00 EDT Performed By: #### 2 938098, 7117055, 4551903, 3886639, 56654665, 2524043, 7960710 ####[facility] [address] [place] [address] CBC w/ Auto Diffon 4 Basophils/100 WBC (Bld) 1.1 % Normal 0.0-2.0 [facility] Comment on above: Order Comment: pt lillian cruz poked once, pt extremely dehydrated and would like to wait for IV start [id number] 05/06/2023 16:33:00 EDT Performed By: #### 2 974513, 2825706, 2888522, 0553071, 90850348, 1637564, 7015959 ####[facility] [address] [place] [address] Basophils/Leukocyte s Auto (Bld) [Pure # fraction] 0.0 E9/L Normal 0.0-0.2 [facility] Comment on above: Order Comment: pt lillian cruz poked once, pt extremely dehydrated and would like to wait for IV start [id number] 05/06/2023 16:33:00 EDT Performed By: #### 2 630630, 6274427, 4824735, 4308899, 30954447, 1363304, 1044422 ####[facility] [address] [place] [address] Eosinophils (Bld) [#/Vol] 0.1 E9/L Normal 0.0-0.5 [facility] Comment on above: Order Comment: pt lillian s poked once, pt extremely dehydrated and would like to wait for IV start [id number] 05/06/2023 16:33:00 EDT Performed By: #### 2 532354, 6042236, 0905834, 2955109, 90351543, 0251747, 3627508 ####[facility] [address] [place] [address] Eosinophils/100 WBC (Bld) 1.5 % Normal 0.0-8.0 [facility] Comment on above: Order Comment: pt wa s poked once, pt extremely dehydrated and would like to wait for IV start [id number] 05/06/2023 16:33:00 EDT Performed By: #### 2 288074, 0655033, 3361066, 0508498, 39905633, 7621847, 9408161 ####[facility] [address] [place] [address] Erythrocyte distribution width (RBC) [Ratio] 14.1 % Normal 10.9-14.2 [facility] Comment on above: Order Comment: pt lillian s poked once, pt extremely dehydrated and would like to wait for IV start [id number] 05/06/2023 16:33:00 EDT Performed By: #### 2 825752, 3095142, 6453178, 3347890, 99816213, 6860607, 5039903 ####[facility] [address] [place] [address] Hematocrit (Bld) [Volume fraction] 37.9 % Normal 34.0-46.0 [facility] Comment on above: Order Comment: pt lillian s poked once, pt extremely dehydrated and would like to wait for IV start [id number] 05/06/2023 16:33:00 EDT Performed By: #### 2 418791, 6943361, 5144588, 7283217, 06626304, 4225079, 9918402 ####[facility] [address] [place] [address] Hemoglobin (Bld) [Mass/Vol] 12.9 g/dL Normal 12.0-16.0 [facility] Comment on above: Order Comment: pt wa s poked once, pt extremely dehydrated and would like to wait for IV start [id number] 05/06/2023 16:33:00 EDT Performed By: #### 2 416090, 3457831, 0612152, 0804421, 72931602, 6546228, 2533303 ####[facility] [address] [place] [address] Lymphocytes (Bld) [#/Vol] 1.4 E9/L Normal 1.0-4.0 [facility] Comment on above: Order Comment: pt wa s poked once, pt extremely dehydrated and would like to wait for IV start iaz085 05/06/2023 16:33:00 EDT Performed By: #### 2 024080, 9874793, 8233502, 0748144, 92140646, 4986204, 7302244 ####[facility] [address] [place] [address] Lymphocytes/100 WBC (Bld) 33.8 % Normal 14.0-50.0 [facility] Comment on above: Order Comment: pt wa s poked once, pt extremely dehydrated and would like to wait for IV start [id number] 05/06/2023 16:33:00 EDT Performed By: #### 2 398088, 2516225, 3902861, 1322125, 00066340, 3685369, 0951297 ####[facility] [address] [place] [address] MCH (RBC) [Entitic mass] 30.3 pg Normal 27.0-34.0 [facility] Comment on above: Order Comment: pt wa s poked once, pt extremely dehydrated and would like to wait for IV start [id number] 05/06/2023 16:33:00 EDT Performed By: #### 2 219195, 9218129, 1772490, 4789739, 15217433, 5029632, 3144194 ####[facility] [address] [place] [address] MCHC (RBC) [Mass/Vol] 34.1 g/dL Normal 31.4-36.0 [facility] Comment on above: Order Comment: pt wa s poked once, pt extremely dehydrated and would like to wait for IV start [id number] 05/06/2023 16:33:00 EDT Performed By: #### 2 372869, 5488880, 1961416, 5392035, 60950333, 7639768, 8269594 ####[facility] [address] [place] [address] MCV (RBC) [Entitic vol] 88.8 fL Normal 80.0-100.0 [facility] Comment on above: Order Comment: pt wa s poked once, pt extremely dehydrated and would like to wait for IV start [id number] 05/06/2023 16:33:00 EDT Performed By: #### 2 466098, 8362615, 2519123, 1207225, 27205739, 8534536, 1467470 ####[facility] [address] [place] [address] Monocytes (Bld) [#/Vol] 0.3 E9/L Normal 0.2-1.0 [facility] Comment on above: Order Comment: pt wa s poked once, pt extremely dehydrated and would like to wait for IV start [id number] 05/06/2023 16:33:00 EDT Performed By: #### 2 701090, 6326029, 8907400, 1323580, 25182206, 9879023, 0693750 ####[facility] [address] [place] [address] Neutrophils (Bld) [#/Vol] 2.3 E9/L Normal 2.0-7.5 [facility] Comment on above: Order Comment: pt wa s poked once, pt extremely dehydrated and would like to wait for IV start [id number] 05/06/2023 16:33:00 EDT Performed By: #### 2 374999, 1615520, 4164126, 0116350, 22264148, 7547739, 8189707 ####[facility] [address] [place] [address] Neutrophils/100 WBC (Bld) 56.4 % Normal 36.0-75.0 [facility] Comment on above: Order Comment: pt wa s poked once, pt extremely dehydrated and would like to wait for IV start [id number] 05/06/2023 16:33:00 EDT Performed By: #### 2 511298, 4819735, 8982111, 5997809, 18816927, 4347699, 2927986 ####[facility] [address] [place] [address] Platelet mean volume (Bld) [Entitic vol] 9.2 fL Normal 6.4-10.8 [facility] Comment on above: Order Comment: pt wa s poked once, pt extremely dehydrated and would like to wait for IV start [id number] 05/06/2023 16:33:00 EDT Performed By: #### 2 540415, 1576044, 2682650, 7832644, 39653867, 0970739, 0459883 ####[facility] [address] [place] [address] Platelets (Bld) [#/Vol] 192.0 E9/L Normal 150.0-500.0 [facility] Comment on above: Order Comment: pt wa s poked once, pt extremely dehydrated and would like to wait for IV start [id number] 05/06/2023 16:33:00 EDT Performed By: #### 2 081943, 3075730, 9245964, 1756116, 19434570, 7712116, 1670367 ####[facility] [address] [place] [address] RBC (Bld) [#/Vol] 4.3 E12/L Normal 4.3-5.9 [facility] Comment on above: Order Comment: pt wa s poked once, pt extremely dehydrated and would like to wait for IV start [id number] 05/06/2023 16:33:00 EDT Performed By: #### 2 323657, 1967330, 7388358, 3722491, 04540006, 8517500, 4417328 ####[facility] [address] [place] [address] WBC corrected for nucl RBC Auto (Bld) [#/Vol] 4.1 E9/L Normal 4.0-11.0 [facility] Comment on above: Order Comment: pt wa s poked once, pt extremely dehydrated and would like to wait for IV start [id number] 05/06/2023 16:33:00 EDT Performed By: #### 2 452540, 0712385, 7244138, 8447157, 06577357, 6799141, 1104064 ####[facility] [address] [place] [address] CHEMISTRYOrdered By: SYSTEM SYSTEM on 05-06-2023 Albumin [...] for Treatmenton 04-16 Consent for Treatment [id number] 11#1.00TIFF Normal [facility] Discharge Instructionson Discharge Instructions [id number] 616#1.00TIFF Normal [facility] ED Clinical Summaryon 2023 ED Clinical Summary Normal [facility] ED Patient Education Noteon 05-06-2023 ED Patient Education Note Normal [facility] ED Patient Summaryon 024 ED Patient Summary Normal [facility] HEMATOLOGYOrdered By: SYSTEM SYSTEM on 05-06-2023 [...] 05-06-2023 Albumin [Mass/Vol] 4.6 g/dL Normal 3.3-5.0 [facility] Comment on above: Order Comment: pt wa s poked once, pt extremely dehydrated and would like to wait for IV start [id number] 05/06/2023 16:33:00 EDT Performed By: #### 2 666247, 8662754, 1212811, 6877527, 59522747, 9783447, 3869468 ####[facility] [address] [place] [address] Albumin/Globulin (S) [Mass conc ratio] 1.8 Normal 1.1-2.2 [facility] Comment on above: Order Comment: pt wa s poked once, pt extremely dehydrated and would like to wait for IV start [id number] 05/06/2023 16:33:00 EDT Performed By: #### 2 716915, 2691036, 8220429, 4337478, 57367911, 1332756, 8960752 ####[facility] [address] [place] [address] ALP [Catalytic activity/Vol] 56 Int._Unit/L Normal 21-98 [facility] Comment on above: Order Comment: pt wa s poked once, pt extremely dehydrated and would like to wait for IV start [id number] 05/06/2023 16:33:00 EDT Performed By: #### 2 282576, 3438234, 7294903, 0196244, 47584939, 4958414, 3413716 ####[facility] [address] [place] [address] ALT No additional P-5'-P [Catalytic activity/Vol] 14 Int._Unit/L Normal 6-46 [facility] Comment on above: Order Comment: pt lillian s poked once, pt extremely dehydrated and would like to wait for IV start [id number] 05/06/2023 16:33:00 EDT Performed By: #### 2 581053, 9344146, 0855013, 2862814, 73358508, 9684034, 2080383 ####[facility] [address] [place] [address] AST [Catalytic activity/Vol] 25 Int._Unit/L Normal 5-43 [facility] Comment on above: Order Comment: pt lillian cruz poked once, pt extremely dehydrated and would like to wait for IV start [id number] 05/06/2023 16:33:00 EDT Performed By: #### 2 776796, 2896127, 4401161, 7824738, 32499003, 4555145, 2928738 ####[facility] [address] [place] [address] Bilirubin [Mass/Vol] 0.5 mg/dL Normal 0.0-1.1 [facility] Comment on above: Order Comment: pt lillian s poked once, pt extremely dehydrated and would like to wait for IV start [id number] 05/06/2023 16:33:00 EDT Performed By: #### 2 281678, 9684708, 7013106, 5112861, 66741749, 0361235, 0506558 ####[facility] [address] [place] [address] Bilirubin.direct [Mass/Vol] 0.1 mg/dL Normal 0.0-0.4 [facility] Comment on above: Order Comment: pt lillian s poked once, pt extremely dehydrated and would like to wait for IV start [id number] 05/06/2023 16:33:00 EDT Performed By: #### 2 763019, 7611554, 5787330, 8590226, 50478166, 8835360, 9723033 ####[facility] [address] [place] [address] Bilirubin.indirect [Mass or moles/Vol] 0.4 mg/dL Normal 0.1-0.9 [facility] Comment on above: Order Comment: pt lillian s poked once, pt extremely dehydrated and would like to wait for IV start [id number] 05/06/2023 16:33:00 EDT Performed By: #### 2 516550, 4763076, 7635065, 1740407, 57221651, 2556451, 6992966 ####[facility] [address] [place] [address] Globulin (S) [Mass/Vol] 2.5 g/dL Normal 1.4-4.0 [facility] Comment on above: Order Comment: pt wa s poked once, pt extremely dehydrated and would like to wait for IV start [id number] 05/06/2023 16:33:00 EDT Performed By: #### 2 427207, 4579118, 7689701, 0269226, 75241189, 0985352, 4686957 ####[facility] [address] [place] [address] Protein [Mass/Vol] 7.1 g/dL Normal 6.0-7.8 [facility] Comment on above: Order Comment: pt wa s poked once, pt extremely dehydrated and would like to wait for IV start [id number] 05/06/2023 16:33:00 EDT Performed By: #### 2 821530, 2630278, 1281343, 2118251, 50987356, 1869810, 4211064 ####[facility] [address] [place] [address] Lactic Acidon 05-06-2023 Lactic Acid Lvl 0.7 mmol/L Normal 0.5-2.2 [facility] Comment on above: Order Comment: pt wa s poked once, pt extremely dehydrated and would like to wait for IV start [id number] 05/06/2023 16:33:00 EDT Performed By: #### 2 953682, 9888592, 1559739, 9678883, 16576467, 7617680, 6794245 ####[facility] [address] [place] [address] Lipase Levelon 05-06-2023 Lipase [Catalytic activity/Vol] 62 U/L High 13-58 [facility] Comment on above: Order Comment: pt wa s poked once, pt extremely dehydrated and would like to wait for IV start hes471 05/06/2023 16:33:00 EDT Performed By: #### 2 803276, 0472206, 5272575, 3495024, 88813365, 6791371, 1061084 ####[facility] [address] [place] [address] Monitor Recordon 05-06-2023 Monitor Record [id number] 932#1.00TIFF Normal [facility] Monitor Record [id number] 260#1.00TIFF Normal [facility] Monitor Record [id number] 669#1.00TIFF Normal [facility] Monitor Record [id number] 349#1.00TIFF Normal [facility] eGFRon 05-06-2023 eGFR 99 mL/min/1.73 m2 Normal >=59 [facility] Comment on above: Order Comment: Order added by Discern Expert. Performed By: #### 2 739413, 9842660, 1337654, 2236519, 31671209, 6010840, 2510802 ####[facility] [address] [place] [address] ED Note-Physicianon 04-07-19 24 ED Note-Physician [id number] 6D#1.00TIFF [facility] Alanine aminotransferase [En zymatic activity/volume] in Serum or PlasmaOrdered By: Trace Lowery on 04-06-2023 ALT [Catalytic activity/Vol] 21 U/L Normal 7-52 [facility] Comment on above: Performed By: #### A CORY, JOSESITO, FIDE #### [place] [address] [place] Albumin [Mass/volume] in Ser um or Plasma by Bromocresol green (BCG) dye binding methoOrdered By: Trace Lowery on 04-06-2023 Albumin BCG dye [Mass/Vol] 4.5 g/dL 3.5-5.7 [facility] Alkaline phosphatase [Enzyma tic activity/volume] in Serum or PlasmaOrdered By: Trace Bullimore on 04-06-2023 ALP [Catalytic activity/Vol] 48 U/L Normal 34-104 [facility] Comment on above: Performed By: #### A DDONUAPLUS, [facility] #### [address] Amylase [Enzymatic activity/ volume] in Serum or PlasmaOrdered By: Trace Leosimore on 04-06-2023 Amylase [Catalytic activity/Vol] 48 U/L Normal 29-103 [facility] Comment on above: Performed By: #### A DDONUAPLUS, CG, CUU #### [address] Aspartate aminotransferase [ Enzymatic activity/volume] in Serum or PlasmaOrdered By: Trace Lowery on 04-06-2023 AST [Catalytic activity/Vol] 28 U/L Normal 13-39 [facility] Comment on above: Performed By: #### A DDONUAPLUS, CG, CUU #### [address] Automated basophil %Ordered By: Trace Lowery on 04-06-2023 Basophils/100 WBC (Bld) 1.0 % Normal . [facility] Comment on above: Performed By: #### L IPASE, HEPATIC, RAEGAN, CBC, BMP #### [address] Automated basophil countOrde red By: Trace Lowery on 04-06-2023 Basophils (Bld) [#/Vol] 0.0 10*3/uL Normal 0.0-0.2 [facility] Comment on above: Result Comment: PERF ORMED BY: [place] [address] PATHOLOGIST FINISHING [employer] BAUTISTA BAKER M.D. Performed By: #### L IPASE, HEPATIC, RAEGAN, CBC, BMP #### [address] Automated blood monocyte cou ntOrdered By: Trace Bullimore on 04-06-2023 Monocytes (Bld) [#/Vol] 0.3 10*3/uL Normal 0.0-0.8 [facility] Comment on above: Performed By: #### L IPASE, HEPATIC, RAEGAN, CBC, BMP #### [address] Automated eosinophil %Ordere d By: Trace Bullimore on 04-06-2023 Eosinophils/100 WBC (Bld) 3.1 % Normal . [facility] Comment on above: Performed By: #### L IPASE, HEPATIC, RAEGAN, CBC, BMP #### [address] Automated eosinophil countOr dered By: Trace Bullimore on 04-06-2023 Eosinophils (Bld) [#/Vol] 0.1 10*3/uL Normal 0.0-0.45 [facility] Comment on above: Performed By: #### L IPASE, HEPATIC, RAEGAN, CBC, BMP #### [address] Automated erythrocytes count in urine sediment (number/area)Ordered By: Trace Bullimore on 04-06-2023 RBC Auto (Urine sed) [#/Area] 1-2 [HPF] 0-4 [facility] Automated leukocytes count i n urine sediment (number/area)Ordered By: Trace Bullimore on 04-06-2023 WBC Auto (Urine sed) [#/Area] 3-4 [HPF] 0-4 [facility] Automated monocyte %Ordered By: Trace Bullimore on 04-06-2023 Monocytes/100 WBC (Bld) 6.7 % Normal . [facility] Comment on above: Performed By: #### L IPASE, HEPATIC, RAEGAN, CBC, BMP #### [facility] [address] Automated neutrophil %Ordere d By: Trace Lowery on 04-06-2023 Neutrophils/100 WBC (Bld) 51.6 % Normal . [facility] Comment on above: Performed By: #### L IPASE, HEPATIC, RAEGAN, CBC, BMP #### [facility] [address] Automated urine color determ inationOrdered By: Trace Lowery on 04-06-2023 Color (U) Yellow Normal Yellow [facility] Comment on above: Order Comment: Name Collection Type:: Clean-Voided Midstream Performed By: #### H EPATIC, MG, LIPASE, CMP, CBC #### [facility] [address] Basic Metabolic Panelon 03-19 Creatinine Clr Calc Pharmacy 98.98 Normal [facility] Comment on above: Performed By: #### A DDONUAPLUS, UHCG, CUU #### [facility] [address] GFR/1.73 sq M.predicted MDRD (S/P/Bld) [Vol rate/Area] mL/min/{1.73_m2} Normal [facility] Comment on above: Performed By: #### A DDONUAPLUS, UHCG, CUU #### [address] Bilirubin Test strip Ql (U)O rdered By: Trace Lowery on 04-06-2023 Bilirubin Ql (U) Negative Negative [facility] Bilirubin.direct [Mass/volum e] in Serum or PlasmaOrdered By: Trace Lowery on 04-06-2023 Bilirubin.direct [Mass/Vol] 0.10 mg/dL 0.03-0.18 [facility] Bilirubin.total [Mass/volume ] in Serum or PlasmaOrdered By: Trace Solimanore on 04-06-2023 Bilirubin [Mass/Vol] 0.4 mg/dL Normal 0.3-1.0 [facility] Comment on above: Performed By: #### A CORY, [facility], U #### [facility] [address] [place] [id number] [facility] abdomen pelvis w conon CT abdomen pelvis w con [facility] [address] [place] [address] [place] [address] CT Scan Report Signed Patient: Abbey Garcia MR#: [id number] : 1990 Acct:[id number] Age/Sex: 33 / F ADM Date: 04/06/23 Loc: ER Room: Type: [facility] ER Attending Dr: Copies to: AGA [...] Maricruz Hutchinson M.D.04/06/2023 1:50 PM Dictation Location: [place] [address] Transcribed By: SULEMA 04/06/23 1350 Dictated By: Maricruz Hutchinson MD 04/06/23 1341 Signed By: 04/06/23 1350 Normal [facility] Physician [facility] Calcium [Mass/volume] in Ser um or PlasmaOrdered By: Trace Lowery on 04-06-2023 Calcium [Mass/Vol] 9.1 mg/dL Normal 8.6-10.3 [facility] Comment on above: Performed By: #### A MALLORIEUAJESSICA, CG, CUU #### [address] Carbon dioxide, total [Moles /volume] in Serum or PlasmaOrdered By: Trace Lowery on 04-06-2023 CO2 [Moles/Vol] 23.3 mmol/L Normal 21.0-31.0 [facility] Comment on above: Performed By: #### A MALLORIEUAJESSICA, UHCG, CUU #### [address] Chloride [Moles/volume] in S elder or PlasmaOrdered By: Trace Lowery on 04-06-2023 Chloride [Moles/Vol] 109 mmol/L High 98-107 [facility] Comment on above: Performed By: #### A DDFAIZAUAPLUS, UHCG, CUU #### [address] Complete Blood Count Auto Di ffon 04-06-2023 Mean Corpuscular HGB Conc 34.2 g/dL Normal 32.0-35.0 [facility] Comment on above: Performed By: #### L IPASE, HEPATIC, RAEGAN, CBC, BMP #### [facility] [address] [place] [address] Monocytes/100 WBC (Bld) 15.98 % Normal 0.00-20.00 [facility] Comment on above: Performed By: #### L IPASE, HEPATIC, RAEGAN, CBC, BMP #### [facility] [address] NRBC% 0.1 /100{WBC} Normal 0-0.5 [facility] Comment on above: Performed By: #### L IPASE, HEPATIC, RAEGAN, CBC, BMP #### [address] Creatinine [Mass/volume] in Serum or PlasmaOrdered By: Trace Lowery on 04-06-2023 Creatinine [Mass/Vol] 0.86 mg/dL Normal 0.60-1.20 [facility] Comment on above: Performed By: #### A DDONUAPLUS, UHCG, CUU #### [address] Dipstick and Microscopicon 0 04-06-2023 Appearance (U) Cloudy Critically abnormal Clear [facility] Comment on above: Order Comment: Name Collection Type:: Clean-Voided Midstream Performed By: #### H EPATIC, MG, LIPASE, CMP, CBC #### [address] Bacteria,Urine None Seen Normal None Seen [facility] Comment on above: Order Comment: Name Collection Type:: Clean-Voided Midstream Performed By: #### H EPATIC, MG, LIPASE, CMP, CBC #### [address] Bilirubin,Urine Negative Normal Negative [facility] Comment on above: Order Comment: Name Collection Type:: Clean-Voided Midstream Performed By: #### H EPATIC, MG, LIPASE, CMP, CBC #### [address] Glucose Ql (U) Normal Normal Normal [facility] Comment on above: Order Comment: Name Collection Type:: Clean-Voided Midstream Performed By: #### H EPATIC, MG, LIPASE, CMP, CBC #### [address] Hyaline Casts,Urine 0-8 Normal 0-8 [facility] Comment on above: Order Comment: Name Collection Type:: Clean-Voided Midstream Result Comment: PERF ORMED BY: [place] [address] PATHOLOGIST FINISHING FRAME RUNNER BAUTISTA BAKER M.D. Performed By: #### H EPATIC, MG, LIPASE, CMP, CBC #### [address] Ketones Ql (U) Trace High Negative [facility] Comment on above: Order Comment: Name Collection Type:: Clean-Voided Midstream Performed By: #### H EPATIC, MG, LIPASE, CMP, CBC #### [address] Leukocyte esterase Test strip Ql (U) Negative Normal Negative [facility] Comment on above: Order Comment: Name Collection Type:: Clean-Voided Midstream Performed By: #### H EPATIC, MG, LIPASE, CMP, CBC #### [address] Nitrite,Urine Negative Normal Negative [facility] Comment on above: Order Comment: Name Collection Type:: Clean-Voided Midstream Performed By: #### H EPATIC, MG, LIPASE, CMP, CBC #### [place] [address] [place] Occult Blood,Urine Negative Normal Negative [facility] Comment on above: Order Comment: Name Collection Type:: Clean-Voided Midstream Result Comment: PERF ORMED BY: [place] [address] PATHOLOGIST FINISHING FRAME RUNNER BAUTISTA BAKER M.D. Performed By: #### H EPATIC, MG, LIPASE, CMP, CBC #### [address] Protein,Urine Negative Normal Negative [facility] Comment on above: Order Comment: Name Collection Type:: Clean-Voided Midstream Performed By: #### H EPATIC, MG, LIPASE, CMP, CBC #### [address] RBC,Urine 1-2 Normal 0-4 [facility] Comment on above: Order Comment: Name Collection Type:: Clean-Voided Midstream Performed By: #### H EPATIC, MG, LIPASE, CMP, CBC #### [address] Specificy [place],Urine 1.026 Normal 1.001-1.030 [facility] Comment on above: Order Comment: Name Collection Type:: Clean-Voided Midstream Performed By: #### H EPATIC, MG, LIPASE, CMP, CBC #### [address] Squamous Epithelial Cell,Urine 3-4 High 0-2 [facility] Comment on above: Order Comment: Name Collection Type:: Clean-Voided Midstream Performed By: #### H EPATIC, MG, LIPASE, CMP, CBC #### [address] Urobilinogen,Urine Normal Normal Normal [facility] Comment on above: Order Comment: Name Collection Type:: Clean-Voided Midstream Performed By: #### H EPATIC, MG, LIPASE, CMP, CBC #### [address] WBC,Urine 3-4 Normal 0-4 [facility] Comment on above: Order Comment: Name Collection Type:: Clean-Voided Midstream Performed By: #### H EPATIC, MG, LIPASE, CMP, CBC #### [address] Erythrocyte distribution wid th [Ratio] by Automated countOrdered By: Trace Lowery on 04-06-2023 Erythrocyte distribution width (RBC) [Ratio] 13.9 % Normal 11.9-15.3 [facility] Comment on above: Performed By: #### L IPASE, HEPATIC, RAEGAN, CBC, BMP #### [facility] [address] Erythrocytes [#/volume] in B lood by Automated countOrdered By: Trace Lowery on 04-06-2023 RBC (Bld) [#/Vol] 4.17 10*6/uL Normal 3.60-5.00 [facility] Comment on above: Performed By: #### L IPASE, HEPATIC, RAEGAN, CBC, BMP #### [facility] [address] Glucose [Mass/volume] in Ser um or PlasmaOrdered By: Trace Lowery on 04-06-2023 Glucose [Mass/Vol] 77 mg/dL Normal 70-100 [facility] Comment on above: ADA recommended refe rence rangeRandom Glucose Reference Range is dependent on time and content of last meal. Glucose of more than 200 mg/dL in a nonstressed, ambulatory subject supports the diagnosis of Diabetes Mellitus. Result Comment: [place] om Glucose Reference Range is dependent on time and content of last meal. Glucose of more than 200 mg/dL in a nonstressed, ambulatory subject supports the diagnosis of Diabetes Mellitus. ADA recommended reference range Performed By: #### A DDONUAPLUS, BRITTANIECG, CUU #### [facility] [address] HCG ( test) [place].rapi d Ql (U)Ordered By: Trace Lowery on 04-06-2023 HCG ( test) Ql (U) Negative [facility] HCG,Urineon 04-06-2023 Beta HCG ( test) Ql (U) Negative Normal [facility] Comment on above: Result Comment: PERF ORMED BY: [place] [address] PATHOLOGIST FINISHING FRAME RUNNER BAUTISTA BAKER M.D. Performed By: #### A DDONUAPLUS, UHCG, CUU #### [facility] [address] Hematocrit [Volume Fraction] of Blood by Automated countOrdered By: Trace Lowery on 04-06-2023 Hematocrit (Bld) [Volume fraction] 37.4 % Normal 34.0-46.4 [facility] Comment on above: Performed By: #### L IPASE, HEPATIC, RAEGAN, CBC, BMP #### [facility] [address] Hemoglobin [Mass/volume] in BloodOrdered By: Trace Lowery on 04-06-2023 Hemoglobin (Bld) [Mass/Vol] 12.8 g/dL Normal 11.8-15.4 [facility] Comment on above: Performed By: #### L IPASE, HEPATIC, RAEGAN, CBC, BMP #### [facility] [address] Hepatic Panelon 04-06-2023 Albumin [Mass/Vol] 4.5 g/dL Normal 3.5-5.7 [facility] Comment on above: Performed By: #### A DDONUAPLUS, UHCG, CUU #### [address] Bilirubin,Indirect 0.3 mg/dL Normal [facility] Comment on above: Performed By: #### A DDONUAPLUS, UHCG, CUU #### [address] Bilirubin.indirect [Mass/Vol] 0.10 mg/dL Normal 0.03-0.18 [facility] Comment on above: Performed By: #### A DDONUAPLUS, UHCG, CUU #### [address] Ketones Auto test strip (U) [Mass/Vol]Ordered By: Trace Lowery on 04-06-2023 Ketones (U) [Mass/Vol] Trace Negative [facility] - UrinalysisOrder ed By: Trace Lowery on 04-06-2023 Hyaline casts LM Ql (Urine sed) 0-8 [LPF] 0-8 [facility] Leukocytes [#/volume] correc darvin for nucleated erythrocytes in Blood by Automated counOrdered By: Trace Lowery on 04-06-2023 WBC corrected for nucl RBC Auto (Bld) [#/Vol] 3.8 10*3/uL 3.8-11.6 [facility] Leukocytes [#/volume] in Blo od by Automated countOrdered By: Trace Solimanore on 04-06-2023 WBC (Bld) [#/Vol] 3.8 10*3/uL Normal 3.8-11.6 [facility] Comment on above: Performed By: #### L IPASE, HEPATIC, RAEGAN, CBC, BMP #### [facility] [address] [place] [address] Lipase [Enzymatic activity/v olume] in Serum or PlasmaOrdered By: Trace Lowery on 04-06-2023 Lipase [Catalytic activity/Vol] 86.0 U/L High 11.0-82.0 [facility] Comment on above: Result Comment: PERF ORMED BY: [place] [address] PATHOLOGIST FINISHING FRAME RUNNER BAUTISTA BAKER M.D. Performed By: #### A DDONUAPLUS, [facility], CUU #### [place] [address] [place] Lymphocytes [#/volume] in Bl ood by Automated countOrdered By: Trace Lowery on 04-06-2023 Lymphocytes (Bld) [#/Vol] 1.4 10*3/uL Normal 1.00-4.8 [facility] Comment on above: Performed By: #### L IPASE, HEPATIC, RAEGAN, CBC, BMP #### [facility] [address] [place] [address] [place] Lymphocytes/100 leukocytes i n Blood by Automated countOrdered By: Trace Solimanore on 04-06-2023 Lymphocytes/100 WBC (Bld) 37.6 % Normal . [facility] Comment on above: Performed By: #### L IPASE, HEPATIC, RAEGAN, CBC, BMP #### [facility] [address] [place] [address] [place] MCH [Entitic mass] by Automa darvin countOrdered By: Trace Leosimore on 04-06-2023 MCH (RBC) [Entitic mass] 30.6 pg Normal 24.7-34.3 [facility] Comment on above: Performed By: #### L IPASE, HEPATIC, RAEGAN, CBC, BMP #### [facility] [address] MCHC Auto (RBC) [Mass/Vol]Or dered By: Trace Leosimore on 04-06-2023 MCHC (RBC) [Mass/Vol] 34.2 g/dL 32.0-35.0 [facility] MCV [Entitic volume] by Auto mated countOrdered By: Trace Loweyr on 04-06-2023 MCV (RBC) [Entitic vol] 89.7 fL Normal 80-100 [facility] Comment on above: Performed By: #### L IPASE, HEPATIC, RAEGAN, CBC, BMP #### [facility] [address] Monocyte distribution width [Entitic volume] in Blood by AutomatedOrdered By: Trace Lowery on 04-06-2023 Monocyte distribution width Auto (Bld) [Entitic vol] 15.98 % 0.00-20.00 [facility] Neutrophils [#/volume] in Bl ood by Automated countOrdered By: Trace Lowery on 04-06-2023 Neutrophils (Bld) [#/Vol] 2.0 10*3/uL Normal 1.8-7.7 [facility] Comment on above: Performed By: #### L IPASE, HEPATIC, RAEGAN, CBC, BMP #### [facility] [address] [place] [address] Nitrite Test strip Ql (U)Ord ered By: Trace Lowery on 04-06-2023 Nitrite Ql (U) Negative Negative [facility] No Panel InformationOrdered By: Trace Lowery on 04-06-2023 Estimated GFR (CKD-EPI) > 60.0 mL/Min [facility] Creatinine Clearance (Chem 98.98 [facility] Nucleated erythrocytes [Pres ence] in Blood by Automated countOrdered By: Trace Lowery on 04-06-2023 Nucleated RBC Auto Ql (Bld) 0.1 /100{WBC} 0-0.5 [facility] Platelet mean volume [Entiti c volume] in Blood by Automated countOrdered By: Trace Solimanore on 04-06-2023 Platelet mean volume (Bld) [Entitic vol] 9.7 fL Normal 6.3-10.7 [facility] Comment on above: Performed By: #### L IPASE, HEPATIC, RAEGAN, CBC, BMP #### [address] Platelets [#/volume] in Bloo d by Automated countOrdered By: Trace Leosimore on 04-06-2023 Platelets (Bld) [#/Vol] 210 10*3/uL Normal 150-450 [facility] Comment on above: Performed By: #### L IPASE, HEPATIC, RAEGAN, CBC, BMP #### [address] Potassium [Moles/volume] in Serum or PlasmaOrdered By: Trace Bullimore on 04-06-2023 Potassium [Moles/Vol] 3.7 mmol/L Normal 3.5-5.1 [facility] Comment on above: Performed By: #### A NISHONUAJESSICA, ALIYAHG, CUU #### [address] Protein Auto test strip (U) [Mass/Vol]Ordered By: Trace Lowery on 04-06-2023 Protein (U) [Mass/Vol] Negative Negative [facility] Protein [Mass/volume] in Ser um or PlasmaOrdered By: Trace Leosimore on 04-06-2023 Protein [Mass/Vol] 7.1 g/dL Normal 6.4-8.9 [facility] Comment on above: Performed By: #### A DDONUAPLUS, UHCG, CUU #### [address] Serum globulin measurement b y calculation (mass/volume)Ordered By: Trace Lowery on 04-06-2023 Globulin (S) [Mass/Vol] 2.6 g/dL Normal [facility] Comment on above: Performed By: #### A ALIYAH RAYG, CUU #### [facility] [address] [place] [address] Serum or plasma albumin/glob ulin mass ratioOrdered By: Trace Lowery on 04-06-2023 Albumin/Globulin [Mass ratio] 1.7 {ratio} Normal [facility] Comment on above: Performed By: #### A CORY ELIS, CUU #### [address] Serum or plasma anion gap de terminationOrdered By: Trace Lowery on 04-06-2023 Anion gap [Moles/Vol] 12.4 mmol/L Normal 6.0-15.0 [facility] Comment on above: Performed By: #### A JOSESITO RAY, CUU #### [address] Serum or plasma non-glucuron idated bilirubin measurement (mass/volume)Ordered By: Trace Lowery on 04-06-2023 Bilirubin.indirect [Mass/Vol] 0.3 mg/dL [facility] Sodium [Moles/volume] in Ser um or PlasmaOrdered By: Trace Lowery on 04-06-2023 Sodium [Moles/Vol] 141 mmol/L Normal 136-145 [facility] Comment on above: Performed By: #### A ALIYAH RAYG, CUU #### [facility] [address] [place] [address] Specific gravity Auto test s trip (U) [Rel density]Ordered By: Trace Lowery on 04-06-2023 Specific gravity (U) [Rel density] 1.026 1.001-1.030 [facility] Squamous epithelial cells de tection in urine sediment by light microscopyOrdered By: Trace Lowery on 04-06-2023 Epithelial cells.squamous LM Ql (Urine sed) 3-4 [HPF] 0-2 [facility] Urea nitrogen [Mass/volume] in Serum or PlasmaOrdered By: Trace Lowery on 04-06-2023 Urea nitrogen [Mass/Vol] 10 mg/dL Normal 7-25 [facility] Comment on above: Performed By: #### A DDONUAPLUS, UHCG, CUU #### [facility] [address] Urine bacteria detection by automated methodOrdered By: Trace Lowery on 04-06-2023 Bacteria Auto Ql (U) None seen None Seen [facility] Urine clarity by refractomet ry automatedOrdered By: Trace Lowery on 04-06-2023 Clarity Refractometry automated (U) Cloudy Clear [facility] Urine glucose measurement by automated test strip (mass/volume)Ordered By: Trace Lowery on 04-06-2023 Glucose Auto test strip (U) [Mass/Vol] Normal mg/dL Normal [facility] Urine hemoglobin detection b y automated test stripOrdered By: Trace Lowery on 04-06-2023 Hemoglobin Auto test strip Ql (U) Negative Negative [facility] Urine leukocyte esterase det ection by automated test stripOrdered By: Trace Lowery on 04-06-2023 Leukocyte esterase Auto test strip Ql (U) Negative Negative [facility] Urine pH measurement by auto mated test stripOrdered By: Trace Lowery on 04-06-2023 pH (U) 7.5 [pH] Normal 5.0-9.0 [facility] Comment on above: Order Comment: Name Collection Type:: Clean-Voided Midstream Performed By: #### H EPATIC, MG, LIPASE, CMP, CBC #### [facility] [address] Urobilinogen Auto test strip (U) [Mass/Vol]Ordered By: Trace Lowery on 04-06-2023 Urobilinogen (U) [Mass/Vol] Normal mg/dL Normal [facility] BMPon 04-02-2023 Anion gap [Moles/Vol] 10 mmol/L Normal 07-31 [facility] Comment on above: Performed By: #### 2 737330, 7573748, 7873574, 87847835, 17916483, 25614334, 1221014, 52319873 ####[facility] [address] [place] [address] BUN/Creat Ratio 14 No Units Normal 10-20 [facility] Comment on above: Performed By: #### 2 289437, 8131463, 8375766, 72578807, 18585159, 46172712, 9896180, 04410276 ####[facility] [address] [place] [address] Calcium [Mass/Vol] 8.4 mg/dL Low 8.9-11.1 [facility] Comment on above: Performed By: #### 2 315810, 1588644, 0256474, 91930050, 04754909, 83355437, 5258331, 64784430 ####[facility] [address] [place] [address] Chloride [Moles/Vol] 111 mmol/L Normal 101-111 [facility] Comment on above: Performed By: #### 2 382691, 7263207, 7612406, 05718733, 26254779, 24542530, 0836048, 45718880 ####[facility] [address] [place] [address] CO2 [Moles/Vol] 21 mmol/L Normal 21-31 [facility] Comment on above: Performed By: #### 2 646374, 3936896, 4679905, 26833295, 97539948, 97453530, 7130002, 65518748 ####[facility] [address] [place] [address] Creatinine [Mass/Vol] 0.7 mg/dL Normal 0.5-1.3 [facility] Comment on above: Performed By: #### 2 442377, 9368686, 2563632, 54611192, 04725531, 22475183, 6101974, 67188223 ####[facility] [address] [place] [address] Glucose [Mass/Vol] 86 mg/dL Normal 55-199 [facility] Comment on above: Performed By: #### 2 200254, 7234512, 1273989, 47031235, 38552039, 74845287, 1375972, 45053595 ####[facility] [address] [place] [address] Potassium [Moles/Vol] 3.9 mmol/L Normal 3.5-5.3 [facility] Comment on above: Performed By: #### 2 758783, 4007823, 2164406, 53943716, 01263737, 84317467, 5474669, 74445875 ####[facility] [address] [place] [address] Sodium [Moles/Vol] 138 mmol/L Normal 135-145 [facility] Comment on above: Performed By: #### 2 338716, 2371355, 9680040, 24436935, 63736429, 31895838, 0488316, 31989306 ####[address] [place] [address] Urea nitrogen [Mass/Vol] 10 mg/dL Normal 5-21 [facility] Comment on above: Performed By: #### 2 075960, 0410703, 3689451, 39694125, 51566599, 21042481, 5660987, 10552363 ####[address] [place] [address] BNPon 04-02-2023 Int Ctr BNP Pass Normal [facility] Comment on above: Order Comment: 2nd d raw rejected due to clotted speciment. Phlebotomists notified of redraw by message. [facility] 04/02/2023 12:28:38 EST Performed By: #### 2 086625, 7315458, 3056174, 75859582, 94599097, 80996471, 7817822, 85498274 ####[facility] [address] [place] [address] Natriuretic peptide B (Bld) [Mass/Vol] 25 pg/mL Normal 5-80 [facility] Comment on above: Order Comment: 2nd d raw rejected due to clotted speciment. Phlebotomists notified of redraw by message. [facility] 04/02/2023 12:28:38 EST Performed By: #### 2 869471, 0569058, 6518173, 77883974, 46501796, 30957093, 8195388, 03814929 ####[facility] [address] [place] [address] CBC w/ Auto Diffon 4 Basophil Absolute 0.0 E9/L Normal 0.0-0.2 [facility] Comment on above: Order Comment: speci men rejected due to clot. Phlebotomists notified by message. [facility] 04/02/2023 11:56:19 EST\2nd draw rejected due to clot. Phlebotomists notified by message. [facility] 04/02/2023 12:27:56 EST Performed By: #### 2 781872, 3515026, 1580828, 04888140, 40210386, 41873477, 4418964, 84218623 ####[facility] [address] [place] [address] Basophils/100 WBC (Bld) 0.8 % Normal 0.0-2.0 [facility] Comment on above: Order Comment: speci men rejected due to clot. Phlebotomists notified by message. [facility] 04/02/2023 11:56:19 EST\2nd draw rejected due to clot. Phlebotomists notified by message. [facility] 04/02/2023 12:27:56 EST Performed By: #### 2 576723, 7051116, 5233398, 03206299, 66299038, 32205226, 5594579, 06736835 ####[facility] [address] [place] [address] Eos Absolute 0.2 E9/L Normal 0.0-0.5 [facility] Comment on above: Order Comment: speci men rejected due to clot. Phlebotomists notified by message. [facility] 04/02/2023 11:56:19 EST\2nd draw rejected due to clot. Phlebotomists notified by message. [facility] 04/02/2023 12:27:56 EST Performed By: #### 2 329704, 8508157, 6130935, 33193049, 13938670, 28732472, 3758518, 24744264 ####[facility] [address] [place] [address] Eosinophils/100 WBC (Bld) 3.1 % Normal 0.0-8.0 [facility] Comment on above: Order Comment: speci men rejected due to clot. Phlebotomists notified by message. [facility] 04/02/2023 11:56:19 EST\2nd draw rejected due to clot. Phlebotomists notified by message. [facility] 04/02/2023 12:27:56 EST Performed By: #### 2 314235, 0094622, 1626490, 84313817, 06343250, 73860912, 6077736, 80483909 ####[address] [place] [address] Erythrocyte distribution width (RBC) [Ratio] 14.0 % Normal 10.9-14.2 [facility] Comment on above: Order Comment: speci men rejected due to clot. Phlebotomists notified by message. [facility] 04/02/2023 11:56:19 EST\2nd draw rejected due to clot. Phlebotomists notified by message. [facility] 04/02/2023 12:27:56 EST Performed By: #### 2 544621, 9289219, 1132427, 72140713, 69876778, 48940301, 0862982, 01215288 ####[facility] [address] [place] [address] Hematocrit (Bld) [Volume fraction] 38.0 % Normal 34.0-46.0 [facility] Comment on above: Order Comment: speci men rejected due to clot. Phlebotomists notified by message. [facility] 04/02/2023 11:56:19 EST\2nd draw rejected due to clot. Phlebotomists notified by message. [facility] 04/02/2023 12:27:56 EST Performed By: #### 2 540824, 7757581, 1416260, 65489970, 31725216, 12805599, 0224223, 55310141 ####[facility] [address] [place] [address] Hemoglobin (Bld) [Mass/Vol] 12.8 g/dL Normal 12.0-16.0 [facility] Comment on above: Order Comment: speci men rejected due to clot. Phlebotomists notified by message. [facility] 04/02/2023 11:56:19 EST\2nd draw rejected due to clot. Phlebotomists notified by message. [facility] 04/02/2023 12:27:56 EST Performed By: #### 2 411668, 5033586, 6089812, 98369752, 15775367, 72087289, 3853340, 70549166 ####[facility] [address] [place] [address] Lymph Absolute 1.8 E9/L Normal 1.0-4.0 [facility] Comment on above: Order Comment: speci men rejected due to clot. Phlebotomists notified by message. [facility] 04/02/2023 11:56:19 EST\2nd draw rejected due to clot. Phlebotomists notified by message. [facility] 04/02/2023 12:27:56 EST Performed By: #### 2 073149, 5203069, 0222889, 04718206, 23224264, 55113189, 7684849, 54597854 ####[address] [place] [address] Lymphocytes/100 WBC (Bld) 34.1 % Normal 14.0-50.0 [facility] Comment on above: Order Comment: speci men rejected due to clot. Phlebotomists notified by message. [facility] 04/02/2023 11:56:19 EST\2nd draw rejected due to clot. Phlebotomists notified by message. [facility] 04/02/2023 12:27:56 EST Performed By: #### 2 614105, 9139232, 5936051, 57804848, 74616789, 81686517, 4288661, 75919299 ####[facility] [address] [place] [address] MCH (RBC) [Entitic mass] 29.8 pg Normal 27.0-34.0 [facility] Comment on above: Order Comment: speci men rejected due to clot. Phlebotomists notified by message. [facility] 04/02/2023 11:56:19 EST\2nd draw rejected due to clot. Phlebotomists notified by message. [facility] 04/02/2023 12:27:56 EST Performed By: #### 2 681141, 1701221, 9438895, 54277994, 95420289, 00633769, 0108373, 42314658 ####[facility] [address] [place] [address] MCHC (RBC) [Mass/Vol] 33.5 g/dL Normal 31.4-36.0 [facility] Comment on above: Order Comment: speci men rejected due to clot. Phlebotomists notified by message. [facility] 04/02/2023 11:56:19 EST\2nd draw rejected due to clot. Phlebotomists notified by message. [facility] 04/02/2023 12:27:56 EST Performed By: #### 2 629108, 2019574, 1888799, 84295181, 11022217, 55664809, 8388462, 26818423 ####[facility] [address] [place] [address] MCV (RBC) [Entitic vol] 88.9 fL Normal 80.0-100.0 [facility] [facility] Comment on above: Order Comment: speci men rejected due to clot. Phlebotomists notified by message. [facility] 04/02/2023 11:56:19 EST\2nd draw rejected due to clot. Phlebotomists notified by message. [facility] 04/02/2023 12:27:56 EST Performed By: #### 2 322464, 2213617, 6751213, 76801684, 23738789, 63883929, 3951221, 66239398 ####[facility] [address] [place] [address] Verm[place] Absolute 0.4 E9/L Normal 0.2-1.0 [facility] Comment on above: Order Comment: speci men rejected due to clot. Phlebotomists notified by message. [facility] 04/02/2023 11:56:19 EST\2nd draw rejected due to clot. Phlebotomists notified by message. [facility] 04/02/2023 12:27:56 EST Performed By: #### 2 094615, 7044018, 5441868, 76838093, 63743311, 28943039, 5557228, 41372616 ####[facility] [address] [place] [address] Monocytes/100 WBC (Bld) 7.4 % Normal 4.0-14.0 [facility] Comment on above: Order Comment: speci men rejected due to clot. Phlebotomists notified by message. [facility] 04/02/2023 11:56:19 EST\2nd draw rejected due to clot. Phlebotomists notified by message. [facility] 04/02/2023 12:27:56 EST Performed By: #### 2 634497, 1296837, 5019272, 41972223, 65616730, 22482567, 7238235, 60113840 ####[facility] [address] [place] [address] Neutro Absolute 2.9 E9/L Normal 2.0-7.5 [facility] Comment on above: Order Comment: speci men rejected due to clot. Phlebotomists notified by message. [facility] 04/02/2023 11:56:19 EST\2nd draw rejected due to clot. Phlebotomists notified by message. [facility] 04/02/2023 12:27:56 EST Performed By: #### 2 874115, 1122080, 7107541, 70142304, 51047959, 19991611, 8217410, 49655707 ####[facility] [address] [place] [address] Neutro Auto 54.6 % Normal 36.0-75.0 [facility] Comment on above: Order Comment: speci men rejected due to clot. Phlebotomists notified by message. [facility] 04/02/2023 11:56:19 EST\2nd draw rejected due to clot. Phlebotomists notified by message. [facility] 04/02/2023 12:27:56 EST Performed By: #### 2 142385, 6597047, 1220724, 34869941, 12822236, 06430012, 9189761, 88638680 ####[facility] [address] [place] [address] Platelet 204.0 E9/L Normal 150.0-500.0 [facility] Comment on above: Order Comment: speci men rejected due to clot. Phlebotomists notified by message. [facility] 04/02/2023 11:56:19 EST\2nd draw rejected due to clot. Phlebotomists notified by message. [facility] 04/02/2023 12:27:56 EST Result Comment: Vermichael fiaundrea with slide review Performed By: #### 2 808938, 3262636, 0535521, 59059171, 48771069, 75301379, 3850202, 49921877 ####[facility] [address] [place] [address] Platelet mean volume (Bld) [Entitic vol] 9.8 fL Normal 6.4-10.8 [facility] Comment on above: Order Comment: speci men rejected due to clot. Phlebotomists notified by message. [facility] 04/02/2023 11:56:19 EST\2nd draw rejected due to clot. Phlebotomists notified by message. [facility] 04/02/2023 12:27:56 EST Performed By: #### 2 858699, 3539064, 7827372, 82531473, 79748514, 07491439, 6050321, 37120920 ####[facility] [address] [place] [address] RBC 4.3 E12/L Normal 4.3-5.9 [facility] Comment on above: Order Comment: speci men rejected due to clot. Phlebotomists notified by message. [facility] 04/02/2023 11:56:19 EST\2nd draw rejected due to clot. Phlebotomists notified by message. [facility] 04/02/2023 12:27:56 EST Performed By: #### 2 213357, 7224488, 9812470, 07118107, 11646107, 39580142, 9122739, 27416775 ####[facility] [address] [place] [address] WBC 5.3 E9/L Normal 4.0-11.0 [facility] Comment on above: Order Comment: speci men rejected due to clot. Phlebotomists notified by message. [facility] 04/02/2023 11:56:19 EST\2nd draw rejected due to clot. Phlebotomists notified by message. [facility] 04/02/2023 12:27:56 EST Performed By: #### 2 415682, 8457283, 0054536, 21357351, 01188207, 36965868, 5187038, 86457124 ####[facility] [address] [place] [address] CHEMISTRYOrdered By: SYSTEM SYSTEM on 04-02-2023 Troponin [...] Sensitivity Troponin I Instructions For Use, Alan Napavine, September 2017) Albumin [Mass/Vol] 3.9 g/dL Normal [...] Sensitivity Troponin I Instructions For Use, Alan Napavine, September 2017) Anion gap [Moles/Vol] 10 mmol/L [...] 33.2 s Normal 25.1 - 36.5 second(s) [facility] Comment on above: Interpretive Data: P arameter 15 days - 4 weeks 1 - 5 months 6 - 11 months 1 - 5 years 6 - 10 years 11 - 17 years PTT Mean: 35.4 (27.6-45.6) Mean: 33.5 (24.8-40.7) Mean: 32.4 (25.1-40.7) Mean: 31.6 (24.0-39.2) Mean: 31.6 (26.9-38.7) Mean: 31.0 (24.6-38.4) Pediatric Reference ranges were obtained from a study by Stantno Lott et al. prepared from 1437 samples obtained at 7 different centers using the same coagulation reagent and instrumentation as [facility]. Currently there are no coagulation studies available worldwide for children to 14 days, and no normal ranges. Heparin therapeutic range (represented by Anti-Factor Xa activity of 0.2 - 0.4 U/mL) corresponds to PTT of 56.6 - 109.0 sec. Fibrin D-dimer FEU (PPP) [Mass/Vol] 541 ng/mL FEU Invalid Interpretation Code 215 - 500 ng/mL FEU [facility] Comment on above: Result Comment: Resu lts Called To AL/Mauricio López By RAZIA And Read Back For Confirmation On 04/02/2023 [...] [Relative time] 1.14 {INR} Invalid Interpretation Code [facility] Co[facility] Comment on above: Interpretive Data: I NR results are specifically intended to assess patients stabilized on long-term Anticoagulation therapy suggested INR s Less Intensive Anticoagulation 2.0 3.0 Conventional Range 3.0 4.5 PT Coag (PPP) [Time] 12.7 s High 9.4 - 12.5 second(s) [facility] Comment on above: Interpretive Data: [...] the same coagulation reagent and instrumentation as [facility]. Currently there are no coagulation studies available worldwide for children to 14 days, and no normal ranges. CTA Abdomen and Pelvison CTA Abdomen and Pelvis Normal [facility] CTA Cheston 04-02-2023 CTA Chest Normal [facility] Consent for Treatmenton 03-18 Consent for Treatment [id number] B5#1.00TIFF Normal [facility] D-Dimeron 04-02-2023 Fibrin D-dimer FEU (PPP) [Mass/Vol] 541 [id number] Abnormal 215-500 [facility] Comment on above: Order Comment: speci men rejected due to clot. Phlebotomists notified by message. [facility] 04/02/2023 12:33:03 EST Result Comment: Leyda lts Called To ER/Mauricio López By And [...] skin infectionsLiver cirrhosisPregnancy Performed By: #### 2 170050, 0169413, 7201809, 92532638, 14786440, 67218768, 5428147, 03751201 ####[facility] [address] [place] [address] Discharge Instructionson Discharge Instructions [id number] 98#1.00TIFF Normal [facility] ED Clinical Summaryon 2023 ED Clinical Summary Normal [facility] ED Note-Physicianon 04-02-19 ED Note-Physician Normal [facility] Comment on above: Result Comment: Elec tronically Signed By: Jose Ramon Martinez, Ashutosh Mendoila.rene\Date and Time Signed: 04/02/23 17:20 EST ED Patient Education Noteon 04-02-2023 ED Patient Education Note Normal [facility] ED Patient Summaryon 024 ED Patient Summary Normal [facility] Free T4on 04-02-2023 Free T4 [Mass/Vol] 0.75 ng/dL Normal 0.58-1.64 [facility] Comment on above: Performed By: #### 2 387334, 55455126, 9150251, 2190287 ####[facility] [address] [place] [address] HEMATOLOGYOrdered By: SYSTEM SYSTEM on 04-02-2023 Basophil [...] Normal 80.0 - 100.0 fL Remisol Heme Vermilion Absolute 0.4 E9/L Normal 0.2 - 1.0 [...] 04-02-2023 Albumin [Mass/Vol] 3.9 g/dL Normal 3.3-5.0 [facility] Comment on above: Performed By: #### 2 926199, 41480731, 3161347, 1625873 ####[facility] [address] [place] [address] Albumin/Globulin [Mass ratio] 1.6 {ratio} Normal 1.1-2.2 [facility] Comment on above: Performed By: #### 2 957638, 72120608, 4764931, 9275725 ####[facility] [address] [place] [address] Alk Phos 50 Int._Unit/L Normal 21-98 [facility] Comment on above: Performed By: #### 2 287359, 77547713, 6605605, 8631034 ####[facility] [address] [place] [address] ALT 27 Int._Unit/L Normal 6-46 [facility] Comment on above: Performed By: #### 2 159244, 48239416, 1026141, 8434315 ####[facility] [address] [place] [address] AST 36 Int._Unit/L Normal 5-43 [facility] Comment on above: Performed By: #### 2 452003, 95819004, 0919839, 0874559 ####[facility] [address] [place] [address] Bili Direct 0.0 mg/dL Normal 0.0-0.4 [facility] Comment on above: Performed By: #### 2 153535, 16569712, 0790612, 0634995 ####[facility] [address] [place] [address] Bili Indirect 0.3 mg/dL Normal 0.1-0.9 [facility] Comment on above: Performed By: #### 2 637780, 91345569, 9716696, 8560719 ####[facility] [address] [place] [address] Bili Total 0.3 mg/dL Normal 0.0-1.1 [facility] Comment on above: Performed By: #### 2 717424, 00525993, 0014245, 6077432 ####[address] [address] Globulin (S) [Mass/Vol] 2.4 g/dL Normal 1.4-4.0 [facility] Comment on above: Performed By: #### 2 941064, 28076043, 1796971, 7868492 ####[address] [address] Protein [Mass/Vol] 6.3 g/dL Normal 6.0-7.8 [facility] Comment on above: Performed By: #### 2 776489, 34899084, 5009594, 1219103 ####[facility] [address] [place] [address] Lipase Levelon 04-02-2023 Lipase Lvl 124 unit/L High 13-58 [facility] Comment on above: Performed By: #### 2 394380, 02231612, 7895541, 5631026 ####[address] [place] [address] Magnesiumon 04-02-2023 Magnesium [Mass/Vol] 1.9 mg/dL Normal 1.3-2.4 [facility] Comment on above: Performed By: #### 2 485492, 4540899, 0924739, 27554165, 38191526, 64765533, 0558827, 50311055 ####[facility] [address] [place] [address] PT & PTTon 04-02-2023 aPTT Coag (PPP) [Time] 33.2 second(s) Normal 25.1-36.5 [facility] Comment on above: Order Comment: speci men rejected due to clot. phlebotomists notified of redraw by message. [facility] 04/02/2023 12:33:39 EST Result Comment: Para [...] the same coagulation reagent and instrumentation as [facility]. Currently there are no coagulation studies available worldwide for children to 14 days, and no normal ranges. Heparin therapeutic range (represented by Anti-Factor Xa activity of 0.2 - 0.4 U/mL) corresponds to PTT of 56.6 - 109.0 sec. Performed By: #### 2 500763, 8460319, 0369786, 21558520, 72790163, 99606775, 6327233, 84545074 ####[facility] [address] [place] [address] INR Coag (PPP) [Relative time] 1.14 {INR} Invalid Interpretation Code [facility] Comment on above: Order Comment: speci men rejected due to clot. phlebotomists notified of redraw by message. [facility] 04/02/2023 12:33:39 EST Result Comment: INR results are specifically intended to assess patients stabilized on long-term Anticoagulation therapy suggested INR?s ?Less Intensive Anticoagulation? 2.0 ? 3.0Conventional Range 3.0 ? 4.5 Performed By: #### 2 451767, 4135673, 0022921, 76451260, 05316611, 42839828, 9530791, 88975805 ####[facility] [address] [place] [address] PT Coag (PPP) [Time] 12.7 second(s) High 9.4-12.5 [facility] Comment on above: Order Comment: speci men rejected due to clot. phlebotomists notified of redraw by message. [facility] 04/02/2023 12:33:39 EST Result Comment: 15 [...] the same coagulation reagent and instrumentation as [facility]. Currently there are no coagulation studies available worldwide for children to 14 days, and no normal ranges. Performed By: #### 2 384808, 0248281, 6505647, 58689990, 35645819, 89068000, 2669631, 49292199 ####[facility] [address] [place] [address] Pre-Arrival Noteon Pre-Arrival Note Normal [facility] Progress Note-Nurseon 2023 Progress Note-Nurse CT called and verbalized IV infiltrated when attempting to flush. IV removed per this nurse and attempted to place IV with unsuccessful attempts. Dr. Albright and Sabina, RN aware. Normal [facility] TSH With T4fr Reflexon 04-02 TSH Qn 0.11 m[IU]/L Low 0.34-5.60 [facility] Comment on above: Performed By: #### 2 954166, 39061769, 4383071, 5545938 ####[facility] [address] [place] [address] Troponin 0 Hr.on 04-02-2023 Troponin 2.40 pg/mL Low 10.10-27.10 [facility] Comment on above: Result Comment: The 95% CI (Confidence Interval) PPV (Positive Predictive Value) for myocardial infarction in females is 38 pg/mL, in males 51 pg/mL. The results should be used in conjunction with clinical conditions of myocardial infarction.(Access High Sensitivity Troponin I Instructions For Use, [employer], September 2017) Performed By: #### 2 402969, 7334251, 9560230, 38237168, 25535436, 70958914, 4675221, 44355768 ####[facility] [address] [place] [address] Troponin 3 Hr.on 04-02-2023 Troponin I.cardiac [Mass/Vol] ng/mL Low 10.10-27.10 [facility] Comment on above: Result Comment: The 95% CI (Confidence Interval) PPV (Positive Predictive Value) for myocardial infarction in females is 38 pg/mL, in males 51 pg/mL. The results should be used in conjunction with clinical conditions of myocardial infarction.([place] High Sensitivity Troponin I Instructions For Use, [employer], September 2017) Performed By: #### 1 4836000 ####[facility] [address] [place] [address] XR Chest Single Viewon 04-02 XR Chest Single View Normal [facility] eGFRon 04-02-2023 eGFR 116 mL/min/1.73 m2 Normal >=59 [facility] Comment on above: Order Comment: Order added by Discern Expert. Performed By: #### 2 330354, 7526170, 1333573, 84910884, 87660807, 47928251, 0295297, 41429415 ####[facility] [address] [place] [address] Home Health Recordson 2023 Home Health Records [id number] F2#1.00TIFF Normal [facility] Ambulatory Visit Summaryon 0 03-24-2023 Ambulatory Visit Summary Normal [facility] Auth for Release of Medical Recordson 03-24-2023 Auth for Release of Medical Records [id number]#1.00TIFF Normal [facility] Family Medicine Office/Clini c Noteon 03-24-2023 Family Medicine Office/Clinic Note Normal [facility] Comment on above: Result Comment: Elec tronically Signed By: Jaquan Paula\Date and Time Signed: 03/24/23 15:20 EST CBC panel Auto (Bld)on 03-19 Erythrocyte distribution width (RBC) [Ratio] 12.1 % 11.5 - 14.5 % [facility] Hematocrit (Bld) [Volume fraction] 33.7 % Low 36.0 - 46.0 % [facility] Hemoglobin (Bld) [Mass/Vol] 11.9 g/dL Low 12.0 - 16.0 g/dL [facility] Interpretation and review of laboratory results Abnormal [facility] MCH (RBC) [Entitic mass] 30.1 pg 26.0 - 34.0 pg [facility] MCHC (RBC) [Mass/Vol] 35.3 g/dL 32.0 - 36.0 g/dL [facility] MCV (RBC) [Entitic vol] 85 fL 80 - 100 fL [facility] Nucleated RBC/100 WBC (Bld) [Ratio] 0.0 % [facility] Platelets (Bld) [#/Vol] 285 10*3/uL [facility] RBC (Bld) [#/Vol] 3.96 10*6/uL [facility] WBC (Bld) [#/Vol] 4.3 10*3/uL [facility] Erythrocyte distribution width (RBC) [Ratio] 12.1 % Normal 11.5-14.5 [facility] Comment on above: Performed By: #### V ERAB #### MELISA Galvan ([id number]) [facility] ([facility]) [address] [place] [address] Hematocrit (Bld) [Volume fraction] 33.7 % Low 36.0-46.0 [facility] Comment on above: Performed By: #### V ERAB #### MELISA Galvan ([id number]) [facility] ([facility]) [address] [place] [address] [place] Hemoglobin (Bld) [Mass/Vol] 11.9 g/dL Low 12.0-16.0 [facility] Comment on above: Performed By: #### V ERAB #### MELISA Galvan () [facility] ([facility]) [address] [place] [address] US MCH (RBC) [Entitic mass] 30.1 pg Normal 26.0-34.0 [facility] Comment on above: Performed By: #### V ERAB #### MELISA Galvan () [facility] ([facility]) [address] [place] [address] [place] MCHC (RBC) [Mass/Vol] 35.3 g/dL Normal 32.0-36.0 [facility] Comment on above: Performed By: #### V ERAB #### MELISA Galvan () [facility] ([facility]) [address] [place] [address] [place] MCV (RBC) [Entitic vol] 85 fL Normal 80-100 [facility] Comment on above: Performed By: #### V ERAB #### MELISA Galvan () [facility] ([facility]) [address] [place] [address] [place] Nucleated RBC/100 WBC (Bld) [Ratio] 0.0 /100 WBCs Normal 0.0-0.0 [facility] Comment on above: Performed By: #### V ERAB #### MELISA Galvan () [facility] ([facility]) [address] [place] [address] [place] Platelets (Bld) [#/Vol] 285 x10*3/uL Normal 150-450 [facility] Comment on above: Performed By: #### V ERAB #### MELISA Galvan () [facility] ([facility]) [address] [place] [address] [place] RBC (Bld) [#/Vol] 3.96 x10*6/uL Low 4.00-5.20 [facility] Comment on above: Performed By: #### V ERAB #### MELISA POOLESarwat Galvan ([id number]) [facility] ([facility] [address] [place] [id number] [place] WBC (Bld) [#/Vol] 4.3 x10*3/uL Low 4.4-11.3 [facility] Comment on above: Performed By: #### V ERAB #### MELISA MC Mandy ([id number]) [facility] ([facility] [address] [place] [address] Comprehensive metabolic 2000 panelon 03-19-2023 Albumin [Mass/Vol] 3.2 g/dL Low 3.5 - 5.0 g/dL [facility] ALP (Bld) [Catalytic activity/Vol] 68 U/L 35 - 125 U/L [facility] ALT [Catalytic activity/Vol] 14 U/L 5 - 40 U/L [facility] Anion gap [Moles/Vol] 13 mmol/L NINF - 19 mmol/L [facility] AST [Catalytic activity/Vol] 27 U/L 5 - 40 U/L [facility] Bilirubin [Mass/Vol] 0.4 mg/dL 0.1 - 1.2 mg/dL [facility] Calcium [Mass/Vol] 8.7 mg/dL 8.5 - 10.4 mg/dL [facility] Chloride [Moles/Vol] 106 mmol/L 97 - 107 mmol/L [facility] CO2 [Moles/Vol] 21 mmol/L Low 24 - 31 mmol/L [facility] Creatinine [Mass/Vol] 0.60 mg/dL 0.40 - 1.60 mg/dL [facility] eGFR - PINF [facility] Comment on above: Calculations of jessica mated GFR are performed using the 2020 CKD-EPI Study Refit equation without the race variable for the IDMS-Traceable creatinine methods. https://jasn.asnjournals.org/content//ASN.55257579 88 Glucose [Mass/Vol] 98 mg/dL 65 - 99 mg/dL [facility] Interpretation and review of laboratory results Abnormal [facility] Potassium [Moles/Vol] 3.7 mmol/L 3.4 - 5.1 mmol/L [facility] Protein [Mass/Vol] 5.7 g/dL Low 5.9 - 7.9 g/dL [facility] Sodium [Moles/Vol] 140 mmol/L 133 - 145 mmol/L [facility] Urea nitrogen [Mass/Vol] 5 mg/dL Low 8 - 25 mg/dL [facility] Albumin [Mass/Vol] 3.2 g/dL Low 3.5-5.[address] [facility] Comment on above: Performed By: #### V ERAB #### MELISA Galvan ([id number]) [facility] ([facility]) [address] [place] [address] [place] ALP (Bld) [Catalytic activity/Vol] 68 U/L Normal 35-125 [facility] Comment on above: Performed By: #### V ERAB #### MELISA Galvan ([id number]) [facility] ([facility]) [address] [place] [address] [place] ALT [Catalytic activity/Vol] 14 U/L Normal 5-40 [facility] Comment on above: Performed By: #### V ERAB #### MELISA Galvan ([id number]) [facility] ([facility]) [address] [place] [address] [place] Anion gap [Moles/Vol] 13 mmol/L Normal <=19 [facility] Comment on above: Performed By: #### V ERAB #### MELISA Galvan ([id number]) [facility] ([facility]) [address] [place] [address] [place] AST [Catalytic activity/Vol] 27 U/L Normal 5-40 [facility] Comment on above: Performed By: #### V ERAB #### MELISA Galvan ([id number]) [facility] ([facility]) [address] [place] [address] [place] Bilirubin [Mass/Vol] 0.4 mg/dL Normal 0.1-1.2 [facility] Comment on above: Performed By: #### V ERAB #### MELISA Galvan ([id number]) [facility] ([employer]) [address] [place] [address] [place] Calcium [Mass/Vol] 8.7 mg/dL Normal 8.5-10.[address] [facility] Comment on above: Performed By: #### V ERAB #### MELISA Galvan ([id number]) [facility] ([employer]) [address] [place] [address] [place] Chloride [Moles/Vol] 106 mmol/L Normal 97-107 [facility] Comment on above: Performed By: #### V ERAB #### MELISA Galvan ([id number]) [facility] ([employer]) [address] [place] [address] [place] CO2 [Moles/Vol] 21 mmol/L Low 24-31 [facility] Comment on above: Performed By: #### V ERAB #### MELISA Galvan ([id number]) [facility] ([employer] [facility]) [address] [place] [address] [place] Creatinine [Mass/Vol] 0.60 mg/dL Normal 0.40-1.60 [facility] Comment on above: Performed By: #### V ERAB #### MELISA Galvan ([id number]) [facility] ([facility]) [address] [place] [address] [place] GFR/1.73 sq M.predicted MDRD (S/P/Bld) [Vol rate/Area] mL/min/{1.73_m2} Normal >60 [facility] Comment on above: Result Comment: Calc ulations of estimated GFR are performed using the 2020 CKD-EPI Study Refit equation without the race variable for the IDMS-Traceable creatinine methods. https://jasn.asnjournals.org/content/early/ASN.23385053 88 Performed By: #### V ERAB #### MELISA Galvan ([id number]) [facility] ([employer]) [address] [place] [address] [place] Glucose [Mass/Vol] 98 mg/dL Normal 65-[address] [facility] Comment on above: Performed By: #### V ERAB #### MELISA Galvan ([id number]) [facility] ([facility]) [address] [place] [address] [place] Potassium [Moles/Vol] 3.7 mmol/L Normal 3.4-5.1 [facility] Comment on above: Performed By: #### V ERAB #### MELISA ALEXANDRO J ([id number]) [facility] ([facility]) [address] [place] [address] [place] Protein [Mass/Vol] 5.7 g/dL Low 5.9-7.[address] [facility] Comment on above: Performed By: #### V ERAB #### MELISA ALEXANDRO J ([id number]) [facility] ([facility]) [address] [place] [address] [place] Sodium [Moles/Vol] 140 mmol/L Normal 133-[address] [facility] Comment on above: Performed By: #### V ERAB #### MELISA ALEXANDRO J ([id number]) [facility] ([facility]) [address] [place] [address] [place] Urea nitrogen [Mass/Vol] 5 mg/dL Low 8-25 [facility] Comment on above: Performed By: #### V ERAB #### MELISA ALEXANDRO J ([id number]) [facility] ([facility]) [address] [place] [address] [place] EGDon 03-19-2023 Esophagogastroduode noscopy Table formatting from the original result was not included. Normal [facility] EGD Study observation Narrat iveon 03-19-2023 [...] Tomasa Keyes RN 03/19/2023 1431 Procedure Location [address] [address] Referring Provider Generic Provider [place] No address on file Procedure Provider No name on file [facility] Work Phone: Radiology Study observation (narrative) [facility] Work Phone: EGD Study observation Narrat iveOrdered By: Eve Agosto on 03-19-2023 [facility] Work Phone: Home Health Recordson 2023 Home Health Records [id number] Prabhakar [facility] Surgical pathology studyon 0 03-19-2023 Surgical pathology study Pathology report.total SEE COMMENT Surgical Pathology Case: [id number] Authorizing Provider: Eve Agosto MD Collected: 03/19/2023 1431 Ordering Location: [facility] Received: 03/19/2023 1536 Center 4 [facility] Pathologist: Melisa Mc MD Specimen: STOMACH ANTRUM [...] is submitted in toto in 1 cassette. [facility] Gross dissection performed at: [place] [address] [facility] CBC panel Auto (Bld)on 03-18 Erythrocyte distribution width (RBC) [Ratio] 12.5 % 11.5 - 14.5 % [facility] Hematocrit (Bld) [Volume fraction] 37.2 % 36.0 - 46.0 % [facility] Hemoglobin (Bld) [Mass/Vol] 12.1 g/dL 12.0 - 16.0 g/dL [facility] Interpretation and review of laboratory results Abnormal [facility] MCH (RBC) [Entitic mass] 30.0 pg 26.0 - 34.0 pg [facility] MCHC (RBC) [Mass/Vol] 32.5 g/dL 32.0 - 36.0 g/dL [facility] MCV (RBC) [Entitic vol] 92 fL 80 - 100 fL [facility] Nucleated RBC/100 WBC (Bld) [Ratio] 0.0 % [facility] Platelets (Bld) [#/Vol] 266 10*3/uL [facility] RBC (Bld) [#/Vol] 4.03 10*6/uL [facility] WBC (Bld) [#/Vol] 4.0 10*3/uL Low [facility] Erythrocyte distribution width (RBC) [Ratio] 12.5 % Normal 11.5-14.5 [facility] Comment on above: Performed By: #### 5 8410-2 ####MELISA Galvan ([id number])[facility] ()[address] [place] [address] Hematocrit (Bld) [Volume fraction] 37.2 % Normal 36.0-46.0 [facility] Comment on above: Performed By: #### 5 8410-2 ####MELISA Galvan ([id number])[facility] ()[address] [place] [address] Hemoglobin (Bld) [Mass/Vol] 12.1 g/dL Normal 12.0-16.0 [facility] Comment on above: Performed By: #### 5 8410-2 ####MELISA Galvan ([id number])[facility] ()[address] [place] [address] MCH (RBC) [Entitic mass] 30.0 pg Normal 26.0-34.0 [facility] Comment on above: Performed By: #### 5 8410-2 ####MELISA Galvan ([id number])[facility] ()[address] [place] [address] MCHC (RBC) [Mass/Vol] 32.5 g/dL Normal 32.0-36.0 [facility] Comment on above: Performed By: #### 5 8410-2 ####MELISA Galvan ([id number])[facility] ()[address] [place] [address] MCV (RBC) [Entitic vol] 92 fL Normal 80-100 [facility] Comment on above: Performed By: #### 5 8410-2 ####MELISA Galvan ([id number])[facility] ()[address] [place] [address] Nucleated RBC/100 WBC (Bld) [Ratio] 0.0 /100 WBCs Normal 0.0-0.0 [facility] Comment on above: Performed By: #### 5 8410-2 ####MELISA Galvan (59214)[facility] ()[address] [place] [address] Platelets (Bld) [#/Vol] 266 x10*3/uL Normal 150-450 [facility] Comment on above: Performed By: #### 5 8410-2 ####MELISA Galvan ([id number])[facility] ()[address] [place] [address] RBC (Bld) [#/Vol] 4.03 x10*6/uL Normal 4.00-5.20 [facility] Comment on above: Performed By: #### 5 8410-2 ####MELISA Galvan ([id number])[facility] ()[address] [place] [address] WBC (Bld) [#/Vol] 4.0 x10*3/uL Low 4.4-11.3 [facility] Comment on above: Performed By: #### 5 8410-2 ####MELISA Galvan ([id number])[facility] ()[address] [place] [address] Comprehensive metabolic 2000 panelon 03-18-2023 Albumin [Mass/Vol] 3.0 g/dL Low 3.5 - 5.0 g/dL [facility] ALP (Bld) [Catalytic activity/Vol] 66 U/L 35 - 125 U/L [facility] ALT [Catalytic activity/Vol] 17 U/L 5 - 40 U/L [facility] Anion gap [Moles/Vol] 10 mmol/L NINF - 19 mmol/L [facility] AST [Catalytic activity/Vol] 33 U/L 5 - 40 U/L [facility] Bilirubin [Mass/Vol] 0.3 mg/dL 0.1 - 1.2 mg/dL [facility] Calcium [Mass/Vol] 8.4 mg/dL Low 8.5 - 10.4 mg/dL [facility] Chloride [Moles/Vol] 108 mmol/L High 97 - 107 mmol/L [facility] CO2 [Moles/Vol] 19 mmol/L Low 24 - 31 mmol/L [facility] Creatinine [Mass/Vol] 0.80 mg/dL 0.40 - 1.60 mg/dL [facility] eGFR - PINF [facility] Comment on above: Calculations of jessica mated GFR are performed using the 2020 CKD-EPI Study Refit equation without the race variable for the IDMS-Traceable creatinine methods. https://jasn.asnjournals.org/content//ASN.79067422 88 Glucose [Mass/Vol] 79 mg/dL 65 - 99 mg/dL [facility] Interpretation and review of laboratory results Abnormal [facility] Potassium [Moles/Vol] 3.8 mmol/L 3.4 - 5.1 mmol/L [facility] Protein [Mass/Vol] 5.7 g/dL Low 5.9 - 7.9 g/dL [facility] Sodium [Moles/Vol] 137 mmol/L 133 - 145 mmol/L [facility] Urea nitrogen [Mass/Vol] 5 mg/dL Low 8 - 25 mg/dL [facility] Albumin [Mass/Vol] 3.0 g/dL Low 3.5-5.[address] [facility] Comment on above: Performed By: #### 2 4323-8 ####MELISA Galvan ([id number])[facility] (MW)[address] [place] [address] ALP (Bld) [Catalytic activity/Vol] 66 U/L Normal 35-125 [facility] Comment on above: Performed By: #### 2 4323-8 ####MELISA Galvan ([id number])[facility] ()[address] [place] [address] ALT [Catalytic activity/Vol] 17 U/L Normal 5-40 [facility] Comment on above: Performed By: #### 2 432-8 ####MELISA Galvan ([id number])[facility] ()[address] [place] [address] Anion gap [Moles/Vol] 10 mmol/L Normal <=19 [facility] Comment on above: Performed By: #### 2 432-8 ####MELISA Galvan ([id number])[facility] ()[address] [place] [address] AST [Catalytic activity/Vol] 33 U/L Normal 5-40 [facility] Comment on above: Performed By: #### 2 432-8 ####MELISA Galvan (85884)[facility] ()[address] [place] [address] Bilirubin [Mass/Vol] 0.3 mg/dL Normal 0.1-1.2 [facility] Comment on above: Performed By: #### 2 432-8 ####MELISA Galvan ([id number])[facility] ()[address] [place] [address] Calcium [Mass/Vol] 8.4 mg/dL Low 8.5-10.[address] [facility] Comment on above: Performed By: #### 2 4323-8 ####MELISA Galvan ([id number])[facility] ()[address] [place] [address] Chloride [Moles/Vol] 108 mmol/L High 97-107 [facility] Comment on above: Performed By: #### 2 432-8 ####MELISA Galvan (72110)[facility] ()[address] [place] [address] CO2 [Moles/Vol] 19 mmol/L Low 24-31 [facility] Comment on above: Performed By: #### 2 432-8 ####MELISA Galvan (92328)[facility] ()[address] [place] [address] Creatinine [Mass/Vol] 0.80 mg/dL Normal 0.40-1.60 [facility] Comment on above: Performed By: #### 2 4323-8 ####MELISA Galvan (53888)[facility] ()[address] [place] [address] GFR/1.73 sq M.predicted MDRD (S/P/Bld) [Vol rate/Area] mL/min/{1.73_m2} Normal >60 [facility] Comment on above: Result Comment: Calc ulations of estimated GFR are performed using the 2020 CKD-EPI Study Refit equation without the race variable for the IDMS-Traceable creatinine methods. https://jasn.asnjournals.org/content///ASN.35175034 88 Performed By: #### 2 4323-8 ####MELISA Galvan ([id number])[facility] ()[address] [place] [address] Glucose [Mass/Vol] 79 mg/dL Normal 65-[address] [facility] Comment on above: Performed By: #### 2 4323-8 ####MELISA Galvan (43675)[facility] ()[address] [place] [address] Potassium [Moles/Vol] 3.8 mmol/L Normal 3.4-5.1 [facility] Comment on above: Performed By: #### 2 4323-8 ####MELISA Galvan ([id number])[facility] ()[address] [place] [address] Protein [Mass/Vol] 5.7 g/dL Low 5.9-7.[address] [facility] Comment on above: Performed By: #### 2 4323-8 ####MELISA Galvan (52690)[facility] ()[address] [facility] [place] [facility] [place] [address] Sodium [Moles/Vol] 137 mmol/L Normal 133-[address] [facility] Comment on above: Performed By: #### 2 4323-8 ####MELISA Galvna (65242)[facility] ()[address] [place] [address] Urea nitrogen [Mass/Vol] 5 mg/dL Low 8-25 [facility] Comment on above: Performed By: #### 2 4323-8 ####MELISA Galvan ([id number])[facility] ()[address] [place] [address] CBC panel Auto (Bld)on 03-17 Erythrocyte distribution width (RBC) [Ratio] 12.5 % 11.5 - 14.5 % [facility] Hematocrit (Bld) [Volume fraction] 34.9 % Low 36.0 - 46.0 % [facility] Hemoglobin (Bld) [Mass/Vol] 11.5 g/dL Low 12.0 - 16.0 g/dL [facility] Interpretation and review of laboratory results Abnormal [facility] MCH (RBC) [Entitic mass] 30.2 pg 26.0 - 34.0 pg [facility] MCHC (RBC) [Mass/Vol] 33.0 g/dL 32.0 - 36.0 g/dL [facility] MCV (RBC) [Entitic vol] 92 fL 80 - 100 fL [facility] Nucleated RBC/100 WBC (Bld) [Ratio] 0.0 % [facility] Platelets (Bld) [#/Vol] 268 10*3/uL [facility] RBC (Bld) [#/Vol] 3.81 10*6/uL Low [facility] WBC (Bld) [#/Vol] 5.0 10*3/uL [facility] Erythrocyte distribution width (RBC) [Ratio] 12.5 % Normal 11.5-14.5 [facility] Comment on above: Performed By: #### 5 8410-2 ####MELISA Galvan (63831)[facility] ()[address] [place] [address] Hematocrit (Bld) [Volume fraction] 34.9 % Low 36.0-46.0 [facility] Comment on above: Performed By: #### 5 8410-2 ####MELISA Galvan ([id number])[facility] ()[address] [place] [address] Hemoglobin (Bld) [Mass/Vol] 11.5 g/dL Low 12.0-16.0 [facility] Comment on above: Performed By: #### 5 8410-2 ####EMLISA Galvan ([id number])[facility] ()[address] [place] [address] MCH (RBC) [Entitic mass] 30.2 pg Normal 26.0-34.0 [facility] Comment on above: Performed By: #### 5 8410-2 ####MELISA Galvan (43534)[facility] ()[address] [place] [address] MCHC (RBC) [Mass/Vol] 33.0 g/dL Normal 32.0-36.0 [facility] Comment on above: Performed By: #### 5 8410-2 ####MELISA Galvan ([id number])[facility] ()[address] [place] [address] MCV (RBC) [Entitic vol] 92 fL Normal 80-100 [facility] Comment on above: Performed By: #### 5 8410-2 ####MELISA Galvan (14089)[facility] ()[address] [place] [address] Nucleated RBC/100 WBC (Bld) [Ratio] 0.0 /100 WBCs Normal 0.0-0.0 [facility] Comment on above: Performed By: #### 5 8410-2 ####MELISA Galvan (30695)[facility] ()[address] [place] [address] Platelets (Bld) [#/Vol] 268 x10*3/uL Normal 150-450 [facility] Comment on above: Performed By: #### 5 8410-2 ####MELISA Galvan (25492)[facility] ()[address] [place] [address] RBC (Bld) [#/Vol] 3.81 x10*6/uL Low 4.00-5.20 [facility] Comment on above: Performed By: #### 5 8410-2 ####MELISA Galvan ([id number])[facility] ()[address] [place] [address] WBC (Bld) [#/Vol] 5.0 x10*3/uL Normal 4.4-11.3 [facility] Comment on above: Performed By: #### 5 8410-2 ####MELISA Galvan ([id number])[facility] ()[address] [place] [address] Comprehensive metabolic 2000 panelon 03-17-2023 Albumin [Mass/Vol] 3.3 g/dL Low 3.5 - 5.0 g/dL [facility] ALP (Bld) [Catalytic activity/Vol] 61 U/L 35 - 125 U/L [facility] ALT [Catalytic activity/Vol] 17 U/L 5 - 40 U/L [facility] Anion gap [Moles/Vol] 10 mmol/L NINF - 19 mmol/L [facility] AST [Catalytic activity/Vol] 31 U/L 5 - 40 U/L [facility] Bilirubin [Mass/Vol] 0.2 mg/dL 0.1 - 1.2 mg/dL [facility] Calcium [Mass/Vol] 8.1 mg/dL Low 8.5 - 10.4 mg/dL [facility] Chloride [Moles/Vol] 112 mmol/L High 97 - 107 mmol/L [facility] CO2 [Moles/Vol] 21 mmol/L Low 24 - 31 mmol/L [facility] Creatinine [Mass/Vol] 0.80 mg/dL 0.40 - 1.60 mg/dL [facility] eGFR - PINF [facility] Comment on above: Calculations of jessica mated GFR are performed using the 2020 CKD-EPI Study Refit equation without the race variable for the IDMS-Traceable creatinine methods. https://jasn.asnjournals.org/content//ASN.59137304 88 Glucose [Mass/Vol] 122 mg/dL High 65 - 99 mg/dL [facility] Interpretation and review of laboratory results Abnormal [facility] Potassium [Moles/Vol] 4.3 mmol/L 3.4 - 5.1 mmol/L [facility] Protein [Mass/Vol] 5.7 g/dL Low 5.9 - 7.9 g/dL [facility] Sodium [Moles/Vol] 143 mmol/L 133 - 145 mmol/L [facility] Urea nitrogen [Mass/Vol] 5 mg/dL Low 8 - 25 mg/dL [facility] Albumin [Mass/Vol] 3.3 g/dL Low 3.5-5.[address] [facility] Comment on above: Performed By: #### 2 4323-8 ####MELISA Galvan (79773)[facility] ()[address] [place] [address] ALP (Bld) [Catalytic activity/Vol] 61 U/L Normal 35-125 [facility] Comment on above: Performed By: #### 2 4323-8 ####MELISA Galvan ([id number])[facility] ()[address] [place] [address] ALT [Catalytic activity/Vol] 17 U/L Normal 5-40 [facility] Comment on above: Performed By: #### 2 4323-8 ####MELISA Galvan (50844)[facility] ()[address] [place] [address] Anion gap [Moles/Vol] 10 mmol/L Normal <=19 [facility] Comment on above: Performed By: #### 2 4323-8 ####MELSIA Galvan (25108)[facility] ()[address] [place] [address] AST [Catalytic activity/Vol] 31 U/L Normal 5-40 [facility] Comment on above: Performed By: #### 2 432-8 ####MELISA Galvan (36675)[facility] ()[address] [place] [address] Bilirubin [Mass/Vol] 0.2 mg/dL Normal 0.1-1.2 [facility] Comment on above: Performed By: #### 2 4323-8 ####MELISA Galvan (63904)[facility] ()[address] [place] [address] Calcium [Mass/Vol] 8.1 mg/dL Low 8.5-10.[address] [facility] Comment on above: Performed By: #### 2 4323-8 ####MELISA Galvan (60708)[facility] ()[address] [place] [address] Chloride [Moles/Vol] 112 mmol/L High 97-107 [facility] Comment on above: Performed By: #### 2 4323-8 ####MELISA Galvan (14262)[facility] ()[address] [place] [address] CO2 [Moles/Vol] 21 mmol/L Low 24-31 [facility] Comment on above: Performed By: #### 2 4323-8 ####MELISA Galvan (98479)[facility] ()[address] [place] [address] Creatinine [Mass/Vol] 0.80 mg/dL Normal 0.40-1.60 [facility] Comment on above: Performed By: #### 2 4323-8 ####MELISA Galvan (14586)[facility] ()[address] [place] [address] GFR/1.73 sq M.predicted MDRD (S/P/Bld) [Vol rate/Area] mL/min/{1.73_m2} Normal >60 [facility] Comment on above: Result Comment: Calc ulations of estimated GFR are performed using the 2020 CKD-EPI Study Refit equation without the race variable for the IDMS-Traceable creatinine methods. https://jasn.asnjournals.org/content/early/ASN.87022795 88 Performed By: #### 2 4323-8 ####MELISA Galvan ([id number])[facility] ()[address] [place] [address] Glucose [Mass/Vol] 122 mg/dL High 65-[address] [facility] Comment on above: Performed By: #### 2 4323-8 ####MELISA Galvan (57789)[facility] ()[address] [place] [address] Potassium [Moles/Vol] 4.3 mmol/L Normal 3.4-5.1 [facility] Comment on above: Performed By: #### 2 4323-8 ####MELISA Galvan (40329)[facility] ()[address] [place] [address] Protein [Mass/Vol] 5.7 g/dL Low 5.9-7.[address] [facility] Comment on above: Performed By: #### 2 4323-8 ####MELISA Galvan (68483)[facility] ()[address] [place] [address] Sodium [Moles/Vol] 143 mmol/L Normal 133-[address] [facility] Comment on above: Performed By: #### 2 4323-8 ####MELISA POOLESarwat Galvan ([id number])[facility] ()[address] [place] [address] Urea nitrogen [Mass/Vol] 5 mg/dL Low 8-25 [facility] Comment on above: Performed By: #### 2 4323-8 ####MELISA MC Mandy ([id number])[facility] ()[address] [place] [address] FL UPPER GI W DOUBLE CONTRAS T W SMALL BOWEL FOLLOW THROUGHon 03-17-2023 FL UPPER GI W DOUBLE CONTRAST W SMALL BOWEL FOLLOW THROUGH Interpreted By: Corie Garza, ADDENDUM: The exam was a single contrast upper GI with small-bowel follow-through Signed by: Corie Garza 04/01/2023 12:58 PM -------- ORIGINAL REPORT -------- Dictation workstation: [id number] Interpreted By: Corie Garza, STUDY: FL UPPER GI W DOUBLE CONTRAST W SMALL BOWEL FOLLOW THROUGH; 03/17/2023 4:40 pm INDICATION: Signs/Symptoms:abdo kerry pain. COMPARISON: None. ACCESSION NUMBER(S): [id number] ORDERING CLINICIAN: TIFFANIE MENDEZ TECHNIQUE: Multiple fluoroscopic spot images were obtained during a single contrast upper GI with KUB. Total fluoroscopy time: 1 minute 32 seconds Radiation exposure (Reference Air Kerma): 99.36 mGy Images: 2 spot images 7 series and 2 delayed AP views of the abdomen FINDINGS: [employer] T[employer] Operator images demonstrate postsurgical changes from previous Tan-en-Y [...] Corie Garza 03/17/2023 5:00 PM Dictation workstation: [id number] [facility] RF Upper gastrointestinal tr act and Small bowel Views W air contrast PO and W barium contrast Mary 03-17-2023 Postsurgical changes from gastric bypass. No evidence for obstruction.. MACRO: none Signed by: Corie Garza 03/17/2023 5:00 PM Dictation workstation: [id number] MMODAL Interpreted By: Corie Garza, STUDY: FL UPPER GI W DOUBLE CONTRAST W SMALL BOWEL FOLLOW THROUGH; 03/17/2023 4:40 pm INDICATION: Signs/Symptoms:abdo kerry pain. COMPARISON: None. ACCESSION NUMBER(S): [id number] ORDERING CLINICIAN: TIFFANIE MENDEZ TECHNIQUE: Multiple fluoroscopic spot images were obtained during a single contrast upper GI with KUB. 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 COMPARISON: None. ACCESSION NUMBER(S): [id number] ORDERING CLINICIAN: TIFFANIE MENDEZ TECHNIQUE: Multiple fluoroscopic spot images were obtained during a single contrast upper GI with KUB. 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 ACCESSION NUMBER(S): [id number] ORDERING CLINICIAN: TIFFANIE MENDEZ TECHNIQUE: AP erect view of the chest FINDINGS: The nasogastric tube has not changed in placement with the tip seen within the proximal thoracic esophagus. Heart and mediastinum are normally visualized. Lungs are clear. IMPRESSION: Distal tip of nasogastric tube in proximal thoracic esophagus just above the aortic arch. Signed by: Nya Ahmadi 03/17/2023 8:19 PM Dictation workstation: [id number] [facility] XR CHEST 1 VIEW Interpreted By: Corie Garza, STUDY: XR CHEST 1 VIEW; 03/17/2023 12:41 pm INDICATION: Signs/Symptoms:Stat us post NG tube placement. COMPARISON: None available ACCESSION NUMBER(S): [id number] ORDERING CLINICIAN: TIFFANIE MENDEZ FINDINGS: RESULT: Nasogastric [...] Corie Garza 03/17/2023 4:19 PM Dictation workstation: [id number] [facility] XR Chest Single viewon 03-17 Distal tip of nasogastric tube in proximal thoracic esophagus just above the aortic arch. Signed by: Nya Ahmadi 03/17/2023 8:19 PM Dictation workstation: [id number]AL Interpreted By: Nya Ahmadi, STUDY: XR CHEST 1 VIEW 03/17/2023 7:09 pm INDICATION: Signs/Symptoms:S/p NG placement COMPARISON: 03/17/2023 done at 2:05 p.m. ACCESSION NUMBER(S): [id number] ORDERING CLINICIAN: TIFFANIE MENDEZ TECHNIQUE: AP erect [...] 03/17/2023 done at 2:05 p.m. ACCESSION NUMBER(S): [id number] ORDERING CLINICIAN: TIFFANIE MENDEZ TECHNIQUE: AP erect view of the chest FINDINGS: The nasogastric tube has not changed in placement with the tip seen within the proximal thoracic esophagus. Heart and mediastinum are normally visualized. Lungs are clear. IMPRESSION: Distal tip of nasogastric tube in proximal thoracic esophagus just above the aortic arch. Signed by: Nya Ahmadi 03/17/2023 8:19 PM Dictation workstation: [id number] [facility] Work Phone: Radiology Study observation (narrative) [facility] Work Phone: Nasogastric tube tip is noted at the level of the upper esophagus at the level of the clavicular heads. The nasogastric tube removed itself from the patient soon after this exam. Signed by: Corie Garza 03/17/2023 4:19 PM Dictation workstation: [id number] MMODAL Interpreted By: Corie Garza, STUDY: XR CHEST 1 VIEW; 03/17/2023 12:41 pm INDICATION: Signs/Symptoms:Stat us post NG tube placement. COMPARISON: None available ACCESSION NUMBER(S): [id number] ORDERING CLINICIAN: TIFFANIE MENDEZ FINDINGS: RESULT: Nasogastric [...] tube placement. COMPARISON: None available ACCESSION NUMBER(S): [id number] ORDERING CLINICIAN: TIFFANIE MENDEZ FINDINGS: RESULT: Nasogastric [...] Corie Garza 03/17/2023 4:19 PM Dictation workstation: [id number] [facility] Work Phone: [facility] Work Phone: Radiology Study observation (narrative) [facility] Work Phone: XR Chest Single viewOrdered By: Nya Ahmadi on 03-17-2023 [facility] Work Phone: BMPon 03-16-2023 Anion gap [Moles/Vol] 11 mmol/L Normal 6-16 [facility] Comment on above: Performed By: #### 2 131923, 06707402, 0963507, 8514512, 9154279, 1968457 ####[facility] [address] [place] [address] BUN/Creat Ratio 10 No Units Normal 10-20 [facility] Comment on above: Performed By: #### 2 181228, 61903074, 7440988, 1106265, 0477715, 6743982 ####[facility] [address] [place] [address] Calcium [Mass/Vol] 8.5 mg/dL Low 8.9-11.1 [facility] Comment on above: Performed By: #### 2 414513, 91197397, 0681961, 4102753, 6304037, 7106509 ####[facility] [address] [place] [address] Chloride [Moles/Vol] 109 mmol/L Normal 101-111 [facility] Comment on above: Performed By: #### 2 858200, 72161721, 0126050, 6774030, 6045008, 5131000 ####[facility] [address] [place] [address] CO2 [Moles/Vol] 24 mmol/L Normal 21-31 [facility] Comment on above: Performed By: #### 2 742774, 31436836, 5363455, 0231970, 9784850, 1883744 ####[facility] [address] [place] [address] Creatinine [Mass/Vol] 0.8 mg/dL Normal 0.5-1.3 [facility] Comment on above: Performed By: #### 2 331617, 55829220, 7207368, 1997052, 2368935, 2883290 ####[facility] [address] [place] [address] Glucose [Mass/Vol] 77 mg/dL Normal 55-199 [facility] Comment on above: Performed By: #### 2 969207, 43894968, 7200685, 7239175, 9026168, 6553748 ####[facility] [address] [place] [address] Potassium [Moles/Vol] 3.7 mmol/L Normal 3.5-5.3 [facility] Comment on above: Performed By: #### 2 596423, 27214331, 2343280, 7885720, 6584833, 7828025 ####[facility] [address] [place] [address] Sodium [Moles/Vol] 140 mmol/L Normal 135-145 [facility] Comment on above: Performed By: #### 2 499357, 66991547, 3334454, 7957480, 0391353, 7702821 ####[facility] [address] [place] [address] Urea nitrogen [Mass/Vol] 8 mg/dL Normal 5-21 [facility] Comment on above: Performed By: #### 2 264147, 93681410, 8091721, 4181516, 1075550, 9344755 ####[facility] [address] [place] [address] CBC W Auto Differential pane l (Bld)on 03-16-2023 Basophils (Bld) [#/Vol] 0.07 10*3/uL [facility] Basophils/100 WBC (Bld) 1.4 % 0.0 - 2.0 % [facility] Eosinophils (Bld) [#/Vol] 0.50 10*3/uL [facility] Eosinophils/100 WBC (Bld) 9.9 % 0.0 - 6.0 % [facility] Erythrocyte distribution width (RBC) [Ratio] 12.3 % 11.5 - 14.5 % [facility] Hematocrit (Bld) [Volume fraction] 33.4 % Low 36.0 - 46.0 % [facility] Hemoglobin (Bld) [Mass/Vol] 10.8 g/dL Low 12.0 - 16.0 g/dL [facility] Immature granulocytes (Bld) [#/Vol] 0.01 10*3/uL [facility] Immature granulocytes/100 WBC (Bld) 0.2 % 0.0 - 0.9 % [facility] Comment on above: Immature Granulocyte Count (IG) includes promyelocytes, myelocytes and metamyelocytes but does not include bands. Percent differential counts (%) should be interpreted in the context of the absolute cell counts (cells/UL). Interpretation and review of laboratory results Abnormal [facility] Lymphocytes (Bld) [#/Vol] 1.70 10*3/uL [facility] Lymphocytes/100 WBC (Bld) 33.7 % 13.0 - 44.0 % [facility] MCH (RBC) [Entitic mass] 30.5 pg 26.0 - 34.0 pg [facility] MCHC (RBC) [Mass/Vol] 32.3 g/dL 32.0 - 36.0 g/dL [facility] MCV (RBC) [Entitic vol] 94 fL 80 - 100 fL [facility] Monocytes (Bld) [#/Vol] 0.31 10*3/uL [facility] Monocytes/100 WBC (Bld) 6.2 % 2.0 - 10.0 % [facility] Neutrophils (Bld) [#/Vol] 2.45 10*3/uL [facility] Comment on above: Percent differential counts (%) should be interpreted in the context of the absolute cell counts (cells/uL). Neutrophils/100 WBC (Bld) 48.6 % 40.0 - 80.0 % [facility] Nucleated RBC/100 WBC (Bld) [Ratio] 0.0 % [facility] Platelets (Bld) [#/Vol] 273 10*3/uL [facility] RBC (Bld) [#/Vol] 3.54 10*6/uL Low [facility] WBC (Bld) [#/Vol] 5.0 10*3/uL [facility] Basophils (Bld) [#/Vol] 0.07 x10*3/uL Normal 0.00-0.10 [facility] Comment on above: Performed By: #### 5 7021-8 ####MELISA Galvan ([id number])[facility] ()[address] [place] [address] Basophils/100 WBC (Bld) 1.4 % Normal 0.0-2.0 [facility] Comment on above: Performed By: #### 5 7021-8 ####MELISA Galvan (39345)[facility] ()[address] [place] [address] Eosinophils (Bld) [#/Vol] 0.50 x10*3/uL Normal 0.00-0.70 [facility] Comment on above: Performed By: #### 5 7021-8 ####MELISA Galvan ([id number])[facility] ()[address] [place] [address] Eosinophils/100 WBC (Bld) 9.9 % Normal 0.0-6.0 [facility] Comment on above: Performed By: #### 5 7021-8 ####MELISA Galvan (35350)[facility] ()[address] [place] [address] Erythrocyte distribution width (RBC) [Ratio] 12.3 % Normal 11.5-14.5 [facility] Comment on above: Performed By: #### 5 7021-8 ####MELISA Galvan (32255)[facility] ()[address] [place] [address] Hematocrit (Bld) [Volume fraction] 33.4 % Low 36.0-46.0 [facility] Comment on above: Performed By: #### 5 7021-8 ####MELISA Galvan (60551)[facility] ()[address] [place] [address] Hemoglobin (Bld) [Mass/Vol] 10.8 g/dL Low 12.0-16.0 [facility] Comment on above: Performed By: #### 5 7021-8 ####MELISA Galvan (17606)[facility] ()[address] [place] [address] Immature granulocytes (Bld) [#/Vol] 0.01 x10*3/uL Normal 0.00-0.70 [facility] Comment on above: Performed By: #### 5 7021-8 ####MELISA Galvan (90756)[facility] ()[address] [place] [address] Immature granulocytes/100 WBC (Bld) 0.2 % Normal 0.0-0.9 [facility] Comment on above: Result Comment: Janny ture Granulocyte Count (IG) includes promyelocytes, myelocytes and metamyelocytes but does not include bands. Percent differential counts (%) should be interpreted in the context of the absolute cell counts (cells/UL). Performed By: #### 5 7021-8 ####MELISA Galvan (13418)[facility] ()[address] [place] [address] Lymphocytes (Bld) [#/Vol] 1.70 x10*3/uL Normal 1.20-4.80 [facility] Comment on above: Performed By: #### 5 7021-8 ####MELISA Galvan (43492)[facility] ()[address] [place] [address] Lymphocytes/100 WBC (Bld) 33.7 % Normal 13.0-44.0 [facility] Comment on above: Performed By: #### 5 7021-8 ####MELISA Galvan (45762)[facility] ()[address] [place] [address] MCH (RBC) [Entitic mass] 30.5 pg Normal 26.0-34.0 [facility] Comment on above: Performed By: #### 5 7021-8 ####MELISA Galvan (72901)[facility] ()[address] [place] [address] MCHC (RBC) [Mass/Vol] 32.3 g/dL Normal 32.0-36.0 [facility] Comment on above: Performed By: #### 5 7021-8 ####MELISA Galvan (10145)[facility] ()[address] [place] [address] MCV (RBC) [Entitic vol] 94 fL Normal 80-100 [facility] Comment on above: Performed By: #### 5 7021-8 ####MELISA Galvan (56726)[facility] ()[address] [place] [address] Monocytes (Bld) [#/Vol] 0.31 x10*3/uL Normal 0.10-1.00 [facility] Comment on above: Performed By: #### 5 7021-8 ####MELISA Galvan (23648)[facility] ()[address] [place] [address] Monocytes/100 WBC (Bld) 6.2 % Normal 2.0-10.0 [facility] Comment on above: Performed By: #### 5 7021-8 ####MELISA Galvan (98742)[facility] ()[address] [place] [address] Neutrophils (Bld) [#/Vol] 2.45 x10*3/uL Normal 1.20-7.70 [facility] Comment on above: Result Comment: Perc ent differential counts (%) should be interpreted in the context of the absolute cell counts (cells/uL). Performed By: #### 5 7021-8 ####MELISA Galvan (48039)[facility] ()[address] [place] [address] Neutrophils/100 WBC (Bld) 48.6 % Normal 40.0-80.0 [facility] Comment on above: Performed By: #### 5 7021-8 ####MELISA Galvan (00863)[facility] ()[address] [place] [address] Nucleated RBC/100 WBC (Bld) [Ratio] 0.0 /100 WBCs Normal 0.0-0.0 [facility] Comment on above: Performed By: #### 5 7021-8 ####MELISA Galvan (56207)[facility] ()[address] [place] [address] Platelets (Bld) [#/Vol] 273 x10*3/uL Normal 150-450 [facility] Comment on above: Performed By: #### 5 7021-8 ####MELISA Galvan (96450)[facility] ()[address] [place] [address] RBC (Bld) [#/Vol] 3.54 x10*6/uL Low 4.00-5.20 [facility] Comment on above: Performed By: #### 5 7021-8 ####MELISA Galvan (10894)[facility] ()[address] [place] [address] WBC (Bld) [#/Vol] 5.0 x10*3/uL Normal 4.4-11.3 [facility] Comment on above: Performed By: #### 5 7021-8 ####MELISA Galvan (64549)[facility] ()[address] [place] [address] CBC w/ Auto Diffon 4 Basophil Absolute 0.1 E9/L Normal 0.0-0.2 [facility] Comment on above: Performed By: #### 2 467923, 92251865, 9957018, 2581949, 4908714, 5717672 ####[facility] [address] [place] [address] Basophils/100 WBC (Bld) 2.3 % High 0.0-2.0 [facility] Comment on above: Performed By: #### 2 677964, 74702684, 7984144, 9826637, 3813359, 5247881 ####[facility] [address] [place] [address] Eos Absolute 0.5 E9/L Normal 0.0-0.5 [facility] Comment on above: Performed By: #### 2 565497, 01186109, 3514532, 7637822, 7579235, 7583142 ####[facility] [address] [place] [address] Eosinophils/100 WBC (Bld) 10.3 % High 0.0-8.0 [facility] Comment on above: Performed By: #### 2 973527, 71004977, 7618655, 2689113, 7697148, 4692336 ####[facility] [address] [place] [address] Erythrocyte distribution width (RBC) [Ratio] 13.2 % Normal 10.9-14.2 [facility] Comment on above: Performed By: #### 2 000561, 97306457, 2016320, 5653908, 5779474, 9059504 ####[facility] [address] [place] [address] Hematocrit (Bld) [Volume fraction] 38.0 % Normal 34.0-46.0 [facility] Comment on above: Performed By: #### 2 724535, 16928547, 9781204, 8794806, 7936703, 0872114 ####[facility] [address] [place] [address] Hemoglobin (Bld) [Mass/Vol] 12.5 g/dL Normal 12.0-16.0 [facility] Comment on above: Performed By: #### 2 415083, 60002288, 6489307, 2522462, 0151850, 5364203 ####[address] [address] Lymph Absolute 1.5 E9/L Normal 1.0-4.0 [facility] Comment on above: Performed By: #### 2 443468, 06147593, 4468686, 9423096, 4903553, 5834571 ####[address] [address] Lymphocytes/100 WBC (Bld) 32.0 % Normal 14.0-50.0 [facility] Comment on above: Performed By: #### 2 331487, 05126893, 2521372, 0693468, 4455262, 4682871 ####[facility] [address] [place] [address] MCH (RBC) [Entitic mass] 29.7 pg Normal 27.0-34.0 [facility] Comment on above: Performed By: #### 2 178413, 03923213, 7803644, 2611760, 5361000, 3658367 ####[facility] [address] [place] [address] MCHC (RBC) [Mass/Vol] 33.0 g/dL Normal 31.4-36.0 [facility] Comment on above: Performed By: #### 2 379752, 93568518, 7649473, 0301399, 8854355, 4470811 ####[facility] [address] [place] [address] MCV (RBC) [Entitic vol] 89.8 fL Normal 80.0-100.0 [facility] Comment on above: Performed By: #### 2 062653, 72492730, 5880140, 1133404, 4964728, 9069527 ####[address] [address] [place] Absolute 0.3 E9/L Normal 0.2-1.0 [facility] Comment on above: Performed By: #### 2 109435, 38804791, 2122169, 7423623, 1154370, 9499470 ####[address] [address] Monocytes/100 WBC (Bld) 6.4 % Normal 4.0-14.0 [facility] Comment on above: Performed By: #### 2 106697, 68391868, 6748474, 6224572, 6004477, 3565857 ####[address] [address] Neutro Absolute 2.3 E9/L Normal 2.0-7.5 [facility] Comment on above: Performed By: #### 2 812460, 59455300, 4456582, 3551638, 0768734, 7621205 ####[facility] [address] [place] [address] Neutro Auto 49.0 % Normal 36.0-75.0 [facility] Comment on above: Performed By: #### 2 778145, 09643105, 2199428, 6552005, 2342192, 8173800 ####[facility] [address] [place] [address] Platelet 313.0 E9/L Normal 150.0-500.0 [facility] Comment on above: Performed By: #### 2 667760, 19497193, 3270839, 4915051, 7008929, 6713001 ####[facility] [address] [place] [address] Platelet mean volume (Bld) [Entitic vol] 8.7 fL Normal 6.4-10.8 [facility] Comment on above: Performed By: #### 2 187165, 08994416, 7164033, 4399279, 4595088, 2881507 ####[facility] [address] [place] [address] RBC 4.2 E12/L Low 4.3-5.9 [facility] Comment on above: Performed By: #### 2 881536, 79306277, 7607280, 4382021, 5258287, 9928865 ####[facility] [address] [place] [address] WBC 4.8 E9/L Normal 4.0-11.0 [facility] Comment on above: Performed By: #### 2 741051, 75278317, 8636374, 5165441, 2959604, 9326015 ####[facility] [address] [place] [address] CHEMISTRYOrdered By: SYSTEM SYSTEM on 03-16-2023 Albumin [...] and IV contrast. COMPARISON: None.. ACCESSION NUMBER(S): [id number] ORDERING CLINICIAN: TIFFANIE MENDEZ TECHNIQUE: Oral contrast [...] Corie Garza 03/16/2023 5:46 PM Dictation workstation: [id number] [facility] CT Abdomen and Pelvis W cont rast Brenden 03-16-2023 Patchy ground-glass densities in the bilateral lung bases may represent atelectasis. Multiple cystic lesions scattered throughout both lobes of the liver. Postsurgical changes of Tan-en-Y gastric bypass. MACRO: none Signed by: Corie Garza 03/16/2023 5:46 PM Dictation workstation: [id number] Interpreted By: Corie Garza, STUDY: CT ABDOMEN PELVIS W IV CONTRAST; 03/16/2023 5:27 pm INDICATION: Signs/Symptoms:abdo kerry pain - with oral and IV contrast. COMPARISON: None.. ACCESSION NUMBER(S): [id number] ORDERING CLINICIAN: TIFFANIE MENDEZ TECHNIQUE: Oral contrast [...] and IV contrast. COMPARISON: None.. ACCESSION NUMBER(S): [id number] ORDERING CLINICIAN: TIFFANIE MENDEZ TECHNIQUE: Oral contrast [...] Corie Garza 03/16/2023 5:46 PM Dictation workstation: [id number] [facility] Work Phone: Radiology Study observation (narrative) [facility] Work Phone: CT Abdomen and Pelvis W cont rast IVOrdered By: Corie Garza on 03-16-2023 [facility] Work Phone: Comprehensive metabolic 2000 panelon 03-16-2023 Albumin [Mass/Vol] 3.0 g/dL Low 3.5 - 5.0 g/dL [facility] ALP (Bld) [Catalytic activity/Vol] 58 U/L 35 - 125 U/L [facility] ALT [Catalytic activity/Vol] 13 U/L 5 - 40 U/L [facility] Anion gap [Moles/Vol] 10 mmol/L NINF - 19 mmol/L [facility] AST [Catalytic activity/Vol] 32 U/L 5 - 40 U/L [facility] Bilirubin [Mass/Vol] mg/dL 0.1 - 1.2 mg/dL [facility] Calcium [Mass/Vol] 7.9 mg/dL Low 8.5 - 10.4 mg/dL [facility] Chloride [Moles/Vol] 110 mmol/L High 97 - 107 mmol/L [facility] CO2 [Moles/Vol] 21 mmol/L Low 24 - 31 mmol/L [facility] Creatinine [Mass/Vol] 0.80 mg/dL 0.40 - 1.60 mg/dL [facility] eGFR - PINF [facility] Comment on above: Calculations of jessica mated GFR are performed using the 2020 CKD-EPI Study Refit equation without the race variable for the IDMS-Traceable creatinine methods. https://jasn.asnjournals.org/content//ASN.50425840 88 Glucose [Mass/Vol] 82 mg/dL 65 - 99 mg/dL [facility] Interpretation and review of laboratory results Abnormal [facility] Potassium [Moles/Vol] 3.7 mmol/L 3.4 - 5.1 mmol/L [facility] Protein [Mass/Vol] 5.5 g/dL Low 5.9 - 7.9 g/dL [facility] Sodium [Moles/Vol] 141 mmol/L 133 - 145 mmol/L [facility] Urea nitrogen [Mass/Vol] 8 mg/dL 8 - 25 mg/dL [facility] Albumin [Mass/Vol] 3.0 g/dL Low 3.5-5.[address] [facility] Comment on above: Performed By: #### 2 4323-8 ####MELISA Galvan (29957)[facility] ()[address] [place] [address] ALP (Bld) [Catalytic activity/Vol] 58 U/L Normal 35-125 [facility] Comment on above: Performed By: #### 2 4323-8 ####MELISA Galvan (58776)[facility] ()[address] [place] [address] ALT [Catalytic activity/Vol] 13 U/L Normal 5-40 [facility] Comment on above: Performed By: #### 2 4323-8 ####MELISA Galvan (58986)[facility] ()[address] [place] [address] Anion gap [Moles/Vol] 10 mmol/L Normal <=19 [facility] Comment on above: Performed By: #### 2 4323-8 ####MELISA Galvan (96281)[facility] ()[address] [place] [address] AST [Catalytic activity/Vol] 32 U/L Normal 5-40 [facility] Comment on above: Performed By: #### 2 4323-8 ####MELISA Galvan (87504)[facility] ()[address] [place] [address] Bilirubin [Mass/Vol] mg/dL Normal 0.1-1.2 [facility] Comment on above: Performed By: #### 2 4323-8 ####MELISA Galvan (50997)[facility] ()[address] [place] [address] Calcium [Mass/Vol] 7.9 mg/dL Low 8.5-10.[address] [facility] Comment on above: Performed By: #### 2 4323-8 ####MELISA Galvan (05553)[facility] ()[address] [place] [address] Chloride [Moles/Vol] 110 mmol/L High 97-107 [facility] Comment on above: Performed By: #### 2 4323-8 ####MELISA Galvan (61355)[facility] ()[address] [place] [address] CO2 [Moles/Vol] 21 mmol/L Low 24-31 [facility] Comment on above: Performed By: #### 2 4323-8 ####MELISA Galvan (10696)[facility] ()[address] [place] [address] Creatinine [Mass/Vol] 0.80 mg/dL Normal 0.40-1.60 [facility] Comment on above: Performed By: #### 2 4323-8 ####MELISA Galvan (79087)[facility] ()[address] [place] [address] GFR/1.73 sq M.predicted MDRD (S/P/Bld) [Vol rate/Area] mL/min/{1.73_m2} Normal >60 [facility] Comment on above: Result Comment: Calc ulations of estimated GFR are performed using the 2020 CKD-EPI Study Refit equation without the race variable for the IDMS-Traceable creatinine methods. https://jasn.asnjournals.org/content//ASN.23652444 88 Performed By: #### 2 4323-8 ####MELISA Galvan (67865)[facility] ()[address] [place] [address] Glucose [Mass/Vol] 82 mg/dL Normal 65-[address] [facility] Comment on above: Performed By: #### 2 4323-8 ####MELISA Galvan (99759)[facility] ()[address] [place] [address] Potassium [Moles/Vol] 3.7 mmol/L Normal 3.4-5.1 [facility] Comment on above: Performed By: #### 2 4323-8 ####MELISA Galvan (59274)[facility] ()[address] [place] [address] Protein [Mass/Vol] 5.5 g/dL Low 5.9-7.[address] [facility] Comment on above: Performed By: #### 2 4323-8 ####MELISA Galvan (77759)[facility] ()[address] [place] [address] Sodium [Moles/Vol] 141 mmol/L Normal 133-[address] [facility] Comment on above: Performed By: #### 2 4323-8 ####MELISA Galvan (57661)[facility] ()[address] [place] [address] Urea nitrogen [Mass/Vol] 8 mg/dL Normal 8-25 [facility] Comment on above: Performed By: #### 2 4323-8 ####MELISA Galvan (46407)[facility] ()[address] [place] [address] Consent for Treatmenton 02-17 Consent for Treatment [id number]#1.00TIFF Normal [facility] Discharge Instructionson Discharge Instructions [id number] 21#1.00TIFF Normal [facility] Comment on above: Other Comment: wrong folder ED Clinical Summaryon 2023 ED [facility]-N[facility]ing[facility] 03-16-2023 ED Note-Nursing called report to Thu PRICE, . Normal [facility] ED Note-Physicianon 03-16-19 24 ED Note-Physician Normal [facility] Comment on above: Result Comment: Elec tronically Signed By: Earnest Jett DO\.br\Date and Time Signed: 03/16/23 11:17 EST ED Patient Education Noteon 03-16-2023 ED Patient Education Note Normal [facility] ED Patient Summaryon 024 ED Patient Summary Normal [facility] HEMATOLOGYOrdered By: SYSTEM SYSTEM on 03-16-2023 [...] Normal 80.0 - 100.0 fL Remisol Heme Vermilion Absolute 0.3 E9/L Normal 0.2 - 1.0 [...] 03-16-2023 Albumin [Mass/Vol] 3.8 g/dL Normal 3.3-5.0 [facility] Comment on above: Performed By: #### 2 995384, 72437100, 1849899, 3632361, 8989756, 5001258 ####[facility] [address] [place] [address] Albumin/Globulin [Mass ratio] 1.5 {ratio} Normal 1.1-2.2 [facility] Comment on above: Performed By: #### 2 442786, 50589974, 2841462, 6895234, 9132560, 4044785 ####[facility] [address] [place] [address] Alk Phos 62 Int._Unit/L Normal 21-98 [facility] Comment on above: Performed By: #### 2 678381, 63836888, 8953206, 0691239, 9998168, 5987224 ####[facility] [address] [place] [address] ALT 21 Int._Unit/L Normal 6-46 [facility] Comment on above: Performed By: #### 2 031291, 88899342, 5128734, 5661590, 7664140, 2507191 ####[facility] [address] [place] [address] AST 37 Int._Unit/L Normal 5-43 [facility] Comment on above: Performed By: #### 2 512780, 97858162, 1535538, 6037410, 6556231, 6915692 ####[facility] [address] [place] [address] Bili Direct 0.1 mg/dL Normal 0.0-0.4 [facility] Comment on above: Performed By: #### 2 508208, 14737322, 4974076, 2975352, 8405815, 6210526 ####[facility] [address] [place] [address] Bili Indirect 0.2 mg/dL Normal 0.1-0.9 [facility] Comment on above: Performed By: #### 2 357941, 54928632, 8293004, 6347223, 3322328, 7172862 ####[facility] [address] [place] [address] Bili Total 0.3 mg/dL Normal 0.0-1.1 [facility] Comment on above: Performed By: #### 2 179284, 26093250, 1670080, 0207817, 9840041, 1725290 ####[facility] [address] [place] [address] Globulin (S) [Mass/Vol] 2.6 g/dL Normal 1.4-4.0 [facility] Comment on above: Performed By: #### 2 386878, 86643674, 5422420, 0282250, 0532693, 9652293 ####[facility] [address] [place] [address] Protein [Mass/Vol] 6.4 g/dL Normal 6.0-7.8 [facility] Comment on above: Performed By: #### 2 425000, 40999308, 9152580, 0562951, 4910487, 7229149 ####[facility] [address] [place] [address] Influenza virus A and B and SARS-CoV-2 (COVID-19) identified HANK+probe Nom (Resp)on 03-16-2023 FLUAV RNA HANK+probe Ql (Resp) Not detected Not Detected [facility] FLUBV RNA HANK+probe Ql (Resp) Not detected Not Detected [facility] Interpretation and review of laboratory results Normal [facility] SARS-CoV-2 (COVID-19) RNA HANK+probe Ql (Resp) Not detected Not Detected [facility] This assay has received FDA Emergency Use [...] and has been validated for use at [facility]. Negative results do not preclude COVID-19 infections or Influenza A/B infections, and should not be used as the sole basis for diagnosis, treatment, or other management decisions. If Influenza A/B and RSV PCR results are negative, testing for Parainfluenza virus, Adenovirus and Metapneumovirus is routinely performed for [facility] pediatric oncology and intensive care inpatients, and is available on other patients by placing an add-on request. [facility] FLUAV RNA HANK+probe Ql (Resp) Not detected Normal Not Detected [facility] Comment on above: Order Comment: This [...] and has been validated for use at [facility]. Negative results do not preclude COVID-19 infections or Influenza A/B infections, and should not be used as the sole basis for diagnosis, treatment, or other management decisions. If Influenza A/B and RSV PCR results are negative, testing for Parainfluenza virus, Adenovirus and Metapneumovirus is routinely performed for [facility] pediatric oncology and intensive care inpatients, and is available on other patients by placing an add-on request. Performed By: #### 5 2969-3 #### ALON Johnson ([id number]) [facility] ([facility]) [address] [place] [address] FLUBV RNA HANK+probe Ql (Resp) Not detected Normal Not Detected [facility] Comment on above: Order Comment: This [...] and has been validated for use at [facility]. Negative results do not preclude COVID-19 infections or Influenza A/B infections, and should not be used as the sole basis for diagnosis, treatment, or other management decisions. If Influenza A/B and RSV PCR results are negative, testing for Parainfluenza virus, Adenovirus and Metapneumovirus is routinely performed for [facility] pediatric oncology and intensive care inpatients, and is available on other patients by placing an add-on request. Performed By: #### 5 2969-3 #### ALON Johnson ([id number]) [facility] ([facility]) [address] [place] [address] SARS-CoV-2 (COVID-19) RNA HANK+probe Ql (Resp) Not detected Normal Not Detected [facility] Comment on above: Order Comment: This [...] and has been validated for use at [facility]. Negative results do not preclude COVID-19 infections or Influenza A/B infections, and should not be used as the sole basis for diagnosis, treatment, or other management decisions. If Influenza A/B and RSV PCR results are negative, testing for Parainfluenza virus, Adenovirus and Metapneumovirus is routinely performed for [facility] pediatric oncology and intensive care inpatients, and is available on other patients by placing an add-on request. Performed By: #### 5 2969-3 #### ALON Johnson ([id number]) [facility] ([facility]) [address] [place] [address] Lactic Acidon 03-16-2023 Lactic Acid Lvl 0.6 mmol/L Normal 0.5-2.2 [facility] Comment on above: Performed By: #### 2 495028, 30470965, 4906350, 2287816, 8751256, 1534027 ####[facility] [address] [place] [address] Lipase Levelon 03-16-2023 Lipase Lvl 95 unit/L High 13-58 [facility] Comment on above: Performed By: #### 2 167699, 71822009, 8192956, 3178956, 4020244, 9919922 ####[facility] [address] [place] [address] Pre-Arrival Noteon 4 Pre-Arrival Note Normal [facility] Transfer Documentson 024 Transfer Documents [id number] 04#1.00TIFF Normal [facility] eGFRon 03-16-2023 eGFR 99 mL/min/1.73 m2 Normal >=59 [facility] Comment on above: Order Comment: Order added by Discern Expert. Performed By: #### 2 769881, 19321902, 5764051, 0905805, 1677870, 1187494 ####[facility] [address] [place] [address] BB Draw & Holdon 03-15-2023 BB D&H Sample drawn for Blood Ba Normal [facility] Comment on above: Performed By: #### 2 672951, 54239593, 12002727, 9843345, 0699221, 6650615, 54732156, 2276055, 14304052 ####[facility] [address] [place] [address] BMPon 03-15-2023 Anion gap [Moles/Vol] 12 mmol/L Normal 6-16 [facility] Comment on above: Performed By: #### 2 849036, 08230279, 62508802, 2993537, 2647719, 8066186, 65698115, 3132641, 64508928 ####[facility] [address] [place] [address] BUN/Creat Ratio 10 No Units Normal 10-20 [facility] Comment on above: Performed By: #### 2 163055, 28515004, 41731392, 5168812, 1027158, 5777879, 28028750, 7540687, 37588414 ####[facility] [address] [place] [address] Calcium [Mass/Vol] 8.5 mg/dL Low 8.9-11.1 [facility] Comment on above: Performed By: #### 2 234183, 70498872, 08878329, 7589543, 9318540, 2466682, 08383381, 5024449, 32294059 ####[facility] [address] [place] [address] Chloride [Moles/Vol] 110 mmol/L Normal 101-111 [facility] Comment on above: Performed By: #### 2 444303, 14171037, 60294141, 5670887, 8712553, 0011429, 82028896, 6748499, 96691187 ####[facility] [address] [place] [address] CO2 [Moles/Vol] 22 mmol/L Normal 21-31 [facility] Comment on above: Performed By: #### 2 251094, 47969035, 08424289, 8005572, 3513621, 5938494, 95419482, 9358204, 82506263 ####[facility] [address] [place] [address] Creatinine [Mass/Vol] 0.8 mg/dL Normal 0.5-1.3 [facility] Comment on above: Performed By: #### 2 024666, 52562909, 95843769, 5096604, 6163781, 2619182, 65804748, 0623760, 90939903 ####[facility] [address] [place] [address] Glucose [Mass/Vol] 79 mg/dL Normal 55-199 [facility] Comment on above: Performed By: #### 2 059225, 42394336, 49706967, 7809694, 6811978, 1808306, 74864537, 7997702, 31350121 ####[facility] [address] [place] [address] Potassium [Moles/Vol] 3.6 mmol/L Normal 3.5-5.3 [facility] Comment on above: Performed By: #### 2 933633, 55033636, 13087323, 9424406, 3244686, 1149038, 12900737, 3587372, 02749409 ####[facility] [address] [place] [address] Sodium [Moles/Vol] 140 mmol/L Normal 135-145 [facility] Comment on above: Performed By: #### 2 831526, 64742905, 10674657, 0293239, 0673431, 6884776, 51579358, 9662282, 90798137 ####[address] [address] Urea nitrogen [Mass/Vol] 8 mg/dL Normal 5-21 [facility] Comment on above: Performed By: #### 2 987917, 75701810, 66061645, 1690177, 7785108, 1899473, 13069104, 1757019, 22900307 ####[address] [place] [address] CBC w/ Auto Diffon 4 Basophil Absolute 0.1 E9/L Normal 0.0-0.2 [facility] Comment on above: Performed By: #### 2 625075, 92520241, 05873250, 5183478, 4718401, 9738762, 68012546, 0326647, 03125288 ####[address] [place] [address] Basophils/100 WBC (Bld) 0.9 % Normal 0.0-2.0 [facility] Comment on above: Performed By: #### 2 408788, 47478797, 24364225, 3777612, 0067675, 4439868, 31203744, 1705804, 96813852 ####[address] [place] [address] Eos Absolute 0.6 E9/L High 0.0-0.5 [facility] Comment on above: Performed By: #### 2 967785, 02443942, 28443707, 9014542, 7516667, 3316432, 27586257, 9219095, 16082222 ####[address] [address] Eosinophils/100 WBC (Bld) 9.6 % High 0.0-8.0 [facility] Comment on above: Performed By: #### 2 631840, 90461309, 66480435, 6451703, 6698957, 8969722, 91861856, 4072318, 27820491 ####[place] Erythrocyte distribution width (RBC) [Ratio] 13.2 % Normal 10.9-14.2 [facility] Comment on above: Performed By: #### 2 619361, 66252516, 67369849, 2676114, 1757465, 5461981, 74896183, 7813929, 69122946 ####[address] [address] Hematocrit (Bld) [Volume fraction] 36.0 % Normal 34.0-46.0 [facility] Comment on above: Performed By: #### 2 475645, 46167878, 24698692, 9085308, 1621861, 2458668, 65934843, 2604670, 47950437 ####[address] [address] Hemoglobin (Bld) [Mass/Vol] 12.2 g/dL Normal 12.0-16.0 [facility] Comment on above: Performed By: #### 2 850153, 69584042, 38652664, 3620931, 8846463, 1363514, 27860908, 6292941, 76648730 ####[address] [place] [address] Lymph Absolute 2.0 E9/L Normal 1.0-4.0 [facility] Comment on above: Performed By: #### 2 394593, 47190533, 99146291, 9840608, 2817535, 9386581, 95285674, 5948226, 22603507 ####[address] [address] Lymphocytes/100 WBC (Bld) 32.4 % Normal 14.0-50.0 [facility] Comment on above: Performed By: #### 2 087935, 56613456, 32373953, 0620543, 3242614, 0288049, 13888303, 7104174, 12716222 ####[address] [address] MCH (RBC) [Entitic mass] 30.6 pg Normal 27.0-34.0 [facility] Comment on above: Performed By: #### 2 157047, 86389563, 77250161, 4168829, 3342229, 4880966, 61362713, 7259255, 19223180 ####[address] [address] MCHC (RBC) [Mass/Vol] 34.3 g/dL Normal 31.4-36.0 [facility] Comment on above: Performed By: #### 2 298158, 93174445, 88433675, 3774284, 3594394, 9864700, 20157379, 9529792, 09788126 ####[address] [address] MCV (RBC) [Entitic vol] 89.0 fL Normal 80.0-100.0 [facility] Comment on above: Performed By: #### 2 047561, 43401841, 93845508, 0617466, 6338222, 5426497, 99892274, 8257956, 81750306 ####[facility] [address] [place] [address] Vermilion Absolute 0.3 E9/L Normal 0.2-1.0 [facility] Comment on above: Performed By: #### 2 735349, 71543302, 89248188, 5860221, 3403503, 3452220, 84340609, 8397054, 93718444 ####[facility] [address] [place] [address] Monocytes/100 WBC (Bld) 5.6 % Normal 4.0-14.0 [facility] Comment on above: Performed By: #### 2 637543, 35214311, 06072848, 0769886, 0801472, 3891651, 46043670, 5312287, 20484947 ####[address] [place] [address] Neutro Absolute 3.2 E9/L Normal 2.0-7.5 [facility] Comment on above: Performed By: #### 2 270584, 23189143, 44918414, 9697428, 3601823, 8186634, 94577006, 3378353, 71981058 ####[address] [place] [address] Neutro Auto 51.5 % Normal 36.0-75.0 [facility] Comment on above: Performed By: #### 2 661928, 85169786, 57884391, 3977266, 8755712, 9880768, 74098990, 1491836, 91242848 ####[facility] [address] [place] [address] Platelet 309.0 E9/L Normal 150.0-500.0 [facility] Comment on above: Result Comment: Demetra meneses with slide review Performed By: #### 2 628878, 68051399, 59443476, 1855409, 7297390, 7335272, 49143575, 4677668, 34268942 ####[address] [place] [address] Platelet mean volume (Bld) [Entitic vol] 9.1 fL Normal 6.4-10.8 [facility] Comment on above: Performed By: #### 2 705618, 00956113, 14424776, 6526459, 3708682, 1985824, 07892543, 4509837, 54516707 ####[facility] [address] [place] [address] RBC 4.0 E12/L Low 4.3-5.9 [facility] Comment on above: Performed By: #### 2 467152, 27359224, 08837611, 7832367, 1135196, 4129144, 06340290, 1559547, 24286986 ####[facility] [address] [place] [address] WBC 6.1 E9/L Normal 4.0-11.0 [facility] Comment on above: Performed By: #### 2 862003, 21558136, 11365189, 1779450, 7162746, 4556831, 58842499, 1978811, 51807358 ####[facility] [address] [place] [address] CHEMISTRYOrdered By: SYSTEM SYSTEM on 03-15-2023 Lactic [...] Sensitivity Troponin I Instructions For Use, Alan Napavine, September 2017) Urea nitrogen [Mass/Vol] 8 mg/dL Normal 5 - 21 mg/dL Remisol Chem Urea nitrogen/Creatinine [Mass ratio] 10 mg/mg Normal 10 - 20 Remisol Chem COAGULATIONOrdered By: Storm Baca on 03-15-2023 aPTT Coag (PPP) [Time] 32.3 s Normal 25.1 - 36.5 second(s) [facility] Auto Coag Comment on above: Interpretive Data: [...] the same coagulation reagent and instrumentation as [facility]. Currently there are no coagulation studies available worldwide for children to 14 days, and no normal ranges. Heparin therapeutic range (represented by Anti-Factor Xa activity of 0.2 - 0.4 U/mL) corresponds to PTT of 56.6 - 109.0 sec. INR Coag (PPP) [Relative time] 1.1 {INR} Invalid Interpretation Code [facility] Auto Coag Comment on above: Interpretive Data: I NR results are specifically intended to assess patients stabilized on long-term Anticoagulation therapy suggested INR s Less Intensive Anticoagulation 2.0 3.0 Conventional Range 3.0 4.5 PT Coag (PPP) [Time] 12.6 s High 9.4 - 12.5 second(s) [facility] Auto Coag Comment on above: Interpretive Data: [...] the same coagulation reagent and instrumentation as [facility]. Currently there are no coagulation studies available worldwide for children to 14 days, and no normal ranges. CT Abdomen/Pelvis w/o Contra ston 03-15-2023 CT Abdomen/Pelvis w/o Contrast Normal [facility] Consent for Treatmenton 02-16 Consent for Treatment [id number] 3B#1.00TIFF Normal [facility] Discharge Instructionson Discharge Instructions [id number] 236#1.00TIFF Normal [facility] ED Clinical Summaryon 2023 ED Clinical [facility]-Phys[facility]on 03-15-19 ED Note-Physician Normal [facility] Comment on above: Result Comment: Elec tronically Signed By: Earnest Jett DO\.br\Date and Time Signed: 03/15/23 17:31 EST ED Patient Education Noteon 03-15-2023 ED Patient Education Note Normal [facility] ED Patient Summaryon 024 ED Patient Summary Normal [facility] EMS Documentationon 03-15-19 EMS Documentation Please click on link to see report Normal [facility] Comment on above: Result Comment: Miss [...] Normal 80.0 - 100.0 fL Remisol Heme Vermilion Absolute 0.3 E9/L Normal 0.2 - 1.0 [...] 03-15-2023 Albumin [Mass/Vol] 3.6 g/dL Normal 3.3-5.0 [facility] Comment on above: Performed By: #### 2 344851, 44349728, 37630995, 6922844, 9527967, 7958807, 85372503, 4977862, 81161367 ####[facility] [place] [address] Albumin/Globulin [Mass ratio] 1.4 {ratio} Normal 1.1-2.2 [facility] Comment on above: Performed By: #### 2 416789, 00157634, 53027544, 0438887, 5780829, 4052694, 33111974, 5130608, 73029000 ####[facility] [address] [place] [address] Alk Phos 64 Int._Unit/L Normal 21-98 [facility] Comment on above: Performed By: #### 2 222519, 55547242, 93964279, 7996286, 8254709, 2627506, 17552949, 0711540, 75313092 ####[facility] [address] [place] [address] ALT 20 Int._Unit/L Normal 6-46 [facility] Comment on above: Performed By: #### 2 512945, 74327009, 54879299, 9058653, 0846651, 8232198, 43810950, 2573701, 33298820 ####[address] [place] [address] AST 35 Int._Unit/L Normal 5-43 [facility] Comment on above: Performed By: #### 2 053235, 39289151, 23986165, 4272546, 8672752, 3318341, 80326976, 0326334, 95622683 ####[facility] [address] [place] [address] Bili Direct 0.0 mg/dL Normal 0.0-0.4 [facility] Comment on above: Performed By: #### 2 875116, 98956020, 49445557, 2975750, 6172958, 0073087, 38226226, 0135213, 28392165 ####[facility] [address] [place] [address] Bili Indirect 0.2 mg/dL Normal 0.1-0.9 [facility] Comment on above: Performed By: #### 2 556929, 57689892, 37098139, 8934264, 2750493, 6411641, 41967612, 0249962, 17653000 ####[facility] [address] [place] [address] Bili Total 0.2 mg/dL Normal 0.0-1.1 [facility] Comment on above: Performed By: #### 2 531980, 03697025, 19799813, 1757105, 8539721, 8920492, 02345747, 1230883, 18620921 ####[facility] [address] [place] [address] Globulin (S) [Mass/Vol] 2.6 g/dL Normal 1.4-4.0 [facility] Comment on above: Performed By: #### 2 300418, 50895776, 31995646, 0795360, 7104616, 1949273, 36949180, 6357904, 07824744 ####[facility] [address] [place] [address] Protein [Mass/Vol] 6.2 g/dL Normal 6.0-7.8 [facility] Comment on above: Performed By: #### 2 031069, 41172826, 16204563, 0953049, 3441772, 5294905, 05285144, 8882477, 28163774 ####[facility] [address] [place] [address] Home Health Recordson 2023 Home Health Records [id number] 1#1.00TIFF Normal [facility] Lactic Acidon 03-15-2023 Lactic Acid Lvl 0.7 mmol/L Normal 0.5-2.2 [facility] Comment on above: Performed By: #### 2 746689, 47335221, 24779099, 3908434, 1768694, 1988599, 23905190, 7456959, 54399719 ####[facility] [address] [place] [address] Lipase Levelon 03-15-2023 Lipase Lvl 115 unit/L High 13-58 [facility] Comment on above: Performed By: #### 2 893598, 47019583, 46900049, 4946001, 6393154, 6115925, 66829674, 5313729, 90699199 ####[facility] [address] [place] [address] PT & PTTon 03-15-2023 aPTT Coag (PPP) [Time] 32.3 second(s) Normal 25.1-36.5 [facility] Comment on above: Result Comment: Para [...] the same coagulation reagent and instrumentation as [facility]. Currently there are no coagulation studies available worldwide for children to 14 days, and no normal ranges. Heparin therapeutic range (represented by Anti-Factor Xa activity of 0.2 - 0.4 U/mL) corresponds to PTT of 56.6 - 109.0 sec. Performed By: #### 2 022054, 55092292, 63913200, 5015008, 7230326, 3724288, 13211496, 7276842, 26793266 ####[facility] [address] [place] [address] INR Coag (PPP) [Relative time] 1.1 {INR} Invalid Interpretation Code [facility] Comment on above: Result Comment: INR results are specifically intended to assess patients stabilized on long-term Anticoagulation therapy suggested INR?s ?Less Intensive Anticoagulation? 2.0 ? 3.0Conventional Range 3.0 ? 4.5 Performed By: #### 2 462533, 83159998, 32052707, 1362526, 1405731, 2216148, 38015902, 3922700, 61114605 ####[facility] [address] [place] [address] PT Coag (PPP) [Time] 12.6 second(s) High 9.4-12.5 [facility] Comment on above: Result Comment: 15 [...] the same coagulation reagent and instrumentation as [facility]. Currently there are no coagulation studies available worldwide for children to 14 days, and no normal ranges. Performed By: #### 2 914452, 00294712, 50783186, 9707758, 6023981, 9449160, 36325824, 1842136, 04238914 ####[facility] [address] [place] [address] Pre-Arrival Noteon Pre-Arrival Note Normal [facility] Troponin 0 Hr.on 03-15-2023 Troponin I.cardiac [Mass/Vol] ng/mL Low 10.10-27.10 [facility] Comment on above: Result Comment: The 95% CI (Confidence Interval) PPV (Positive Predictive Value) for myocardial infarction in females is 38 pg/mL, in males 51 pg/mL. The results should be used in conjunction with clinical conditions of myocardial infarction.(Access High Sensitivity Troponin I Instructions For Use, Alan Napavine, September 2017) Performed By: #### 2 [id number], [id number], [id number], 3028158, 7290721, 0671785, [id number], 3420558, [id number] ####[facility] [address] [place] [address] UA With Cult Reflexon 2023 Bilirubin Ql (U) Negative Normal Negative [facility] Comment on above: Performed By: #### 1 [id number] ####[facility] [address] [place] [address] Clarity (U) CLEAR Normal Clear [facility] Comment on above: Performed By: #### 1 [id number] ####[facility] [address] [place] [address] Color (U) ORANGE Abnormal Yellow [facility] Comment on above: Performed By: #### 1 [id number] ####[facility] [address] [place] [address] Crystals LM Ql (Urine sed) Present Normal [facility] Comment on above: Performed By: #### 1 [id number] ####[address] [address] Epithelial cells.squamous LM.HPF (Urine sed) [#/Area] 0-2 Normal 0-2 [facility] Comment on above: Performed By: #### 1 [id number] ####[facility] [address] [place] [address] Glucose Test strip (U) [Mass/Vol] TRACE Abnormal Negative [facility] Comment on above: Performed By: #### 1 [id number] ####[facility] [address] [place] [address] Hemoglobin Ql (U) Negative Normal Negative [facility] Comment on above: Performed By: #### 1 [id number] ####[facility] [address] [place] [address] Ketones (U) [Mass/Vol] Negative Normal Negative [facility] Comment on above: Performed By: #### 1 [id number] ####[facility] [address] [place] [address] [place].plasma/Lith ium.RBC (Bld) [Mass ratio] 0-3 Normal 0-3 [facility] Comment on above: Performed By: #### 1 [id number] ####[facility] [address] [place] [address] Nitrite Ql (U) See Comment Normal Negative [facility] Comment on above: Result Comment: Test Not Performed Due To Interfering Substance Performed By: #### 1 1212191 ####[facility] [address] [place] [address] pH (U) 7.0 [pH] Invalid Interpretation Code 5.0-9.0 [facility] Comment on above: Performed By: #### 1 [id number] ####[address] [address] Protein (U) [Mass/Vol] 1+ Abnormal Negative [facility] Comment on above: Performed By: #### 1 [id number] ####[address] [address] Specific gravity (U) [Rel density] 1.010 Invalid Interpretation Code 1.005-1.030 [facility] Comment on above: Performed By: #### 1 [id number] ####[address] [address] Type of Urine collection method Clean Catch Normal [facility] Comment on above: Performed By: #### 1 [id number] ####[address] [address] Urobilinogen Qn (U) See Comment Normal 0.0-1.0 [facility] Comment on above: Result Comment: Test Not Performed Due To Interfering Substance Performed By: #### 1 5279918 ####[address] [address] WBC Auto Ql (U) Negative Normal Negative [facility] Comment on above: Performed By: #### 1 [id number] ####[facility] [address] [place] [address] WBC LM.HPF (Urine sed) [#/Area] 0-5 Normal 0-5 [facility] Comment on above: Performed By: #### 1 1051311 ####[address] [address] URINALYSISOrdered By: Alcira Lee on 03-15-2023 Bilirubin Ql (U) Negative (03/15/23 2:43 PM) Normal Negative [facility] UA Auto SS Clarity (U) Clear (03/15/23 2:43 PM) Normal Clear [facility] UA Auto SS Color (U) Guild *ABN* (03/15/23 2:43 PM) Invalid Interpretation Code [...] PM) Normal Negative [facility] UA Auto SS [place].plasma/Lith ium.RBC (Bld) [Mass ratio] 0-3 /HPF Normal [...] (Urine sed) [#/Area] 0-5 /HPF Normal 0-5/HPF [facility] UA Auto SS XR Chest Single Viewon 03-15 XR Chest Single View Normal [facility] eGFRon 03-15-2023 eGFR 99 mL/min/1.73 m2 Normal >=59 [facility] Comment on above: Order Comment: Order added by Discern Expert. Performed By: #### 2 508873, 20484409, 28569340, 7786161, 8477153, 9213522, 62048114, 1723894, 51883302 ####[facility] [address] [place] [address] Basic metabolic 2000 panelon 03-10-2023 Anion gap [Moles/Vol] 11 mmol/L NINF - 19 mmol/L [facility] Calcium [Mass/Vol] 8.0 mg/dL Low 8.5 - 10.4 mg/dL [facility] Chloride [Moles/Vol] 108 mmol/L High 97 - 107 mmol/L [facility] CO2 [Moles/Vol] 22 mmol/L Low 24 - 31 mmol/L [facility] Creatinine [Mass/Vol] 0.60 mg/dL 0.40 - 1.60 mg/dL [facility] eGFR - PINF [facility] Comment on above: Calculations of jessica mated GFR are performed using the 2020 CKD-EPI Study Refit equation without the race variable for the IDMS-Traceable creatinine methods. https://jasn.asnjournals.org/content//ASN.88612110 88 Glucose [Mass/Vol] 89 mg/dL 65 - 99 mg/dL [facility] Interpretation and review of laboratory results Abnormal [facility] Potassium [Moles/Vol] 3.7 mmol/L 3.4 - 5.1 mmol/L [facility] Sodium [Moles/Vol] 141 mmol/L 133 - 145 mmol/L [facility] Urea nitrogen [Mass/Vol] 4 mg/dL Low 8 - 25 mg/dL [facility] Anion gap [Moles/Vol] 11 mmol/L Normal <=19 [facility] Comment on above: Performed By: #### 5 2969-3 #### ALON PRECIADOER L ([id number]) [facility] ([facility]) [address] [place] [address] Calcium [Mass/Vol] 8.0 mg/dL Low 8.5-10.[address] [facility] Comment on above: Performed By: #### 5 2969-3 #### ALON MARINMOTZER L ([id number]) [facility] ([facility]) [address] [place] [address] Chloride [Moles/Vol] 108 mmol/L High 97-107 [facility] Comment on above: Performed By: #### 5 2969-3 #### ALON AMBROSIO L ([id number]) [facility] ([facility]) [address] [place] [address] CO2 [Moles/Vol] 22 mmol/L Low 24-31 [facility] Comment on above: Performed By: #### 5 2969-3 #### ALON AMBROSIO L ([id number]) [facility] ([facility]) [address] [place] [address] Creatinine [Mass/Vol] 0.60 mg/dL Normal 0.40-1.60 [facility] Comment on above: Performed By: #### 5 2969-3 #### ALON PRECIADOER L ([id number]) [facility] ([facility]) [address] [place] [address] GFR/1.73 sq M.predicted MDRD (S/P/Bld) [Vol rate/Area] mL/min/{1.73_m2} Normal >60 [facility] Comment on above: Result Comment: Calc ulations of estimated GFR are performed using the 2020 CKD-EPI Study Refit equation without the race variable for the IDMS-Traceable creatinine methods. https://jasn.asnjournals.org/content//ASN.57361015 88 Performed By: #### 5 2969-3 #### ALON AMBROSIO L ([id number]) [facility] ([facility]) [address] [place] [address] Glucose [Mass/Vol] 89 mg/dL Normal 65-[address] [facility] Comment on above: Performed By: #### 5 2969-3 #### ALON AMBROSIO L ([id number]) [facility] ([facility]) [address] [place] [address] Potassium [Moles/Vol] 3.7 mmol/L Normal 3.4-5.1 [facility] Comment on above: Performed By: #### 5 2969-3 #### ALON AMBROSIO L ([id number]) [facility] ([facility]) [address] [place] [address] Sodium [Moles/Vol] 141 mmol/L Normal 133-[address] [facility] Comment on above: Performed By: #### 5 2969-3 #### ALON AMBROSIO L ([id number]) [facility] ([facility]) [address] [place] [address] Urea nitrogen [Mass/Vol] 4 mg/dL Low 8-25 [facility] Comment on above: Performed By: #### 5 2969-3 #### ALON AMBROSIO L ([id number]) [facility] ([facility]) [address] [place] [address] CBC panel Auto (Bld)on 03-10 Erythrocyte distribution width (RBC) [Ratio] 12.9 % 11.5 - 14.5 % [facility] Hematocrit (Bld) [Volume fraction] 31.3 % Low 36.0 - 46.0 % [facility] Hemoglobin (Bld) [Mass/Vol] 10.6 g/dL Low 12.0 - 16.0 g/dL [facility] Interpretation and review of laboratory results Abnormal [facility] MCH (RBC) [Entitic mass] 30.7 pg 26.0 - 34.0 pg [facility] MCHC (RBC) [Mass/Vol] 33.9 g/dL 32.0 - 36.0 g/dL [facility] MCV (RBC) [Entitic vol] 91 fL 80 - 100 fL [facility] Nucleated RBC/100 WBC (Bld) [Ratio] 0.0 % [facility] Platelets (Bld) [#/Vol] 215 10*3/uL [facility] RBC (Bld) [#/Vol] 3.45 10*6/uL [facility] WBC (Bld) [#/Vol] 4.0 10*3/uL [facility] Erythrocyte distribution width (RBC) [Ratio] 12.9 % Normal 11.5-14.5 [facility] Comment on above: Performed By: #### 5 2969-3 #### ALON Johnson ([id number]) [facility] ([facility]) [address] [place] [address] Hematocrit (Bld) [Volume fraction] 31.3 % Low 36.0-46.0 [facility] Comment on above: Performed By: #### 5 2969-3 #### ALON Johnson ([id number]) [facility] ([facility]) [address] [place] [address] Hemoglobin (Bld) [Mass/Vol] 10.6 g/dL Low 12.0-16.0 [facility] Comment on above: Performed By: #### 5 2969-3 #### ALON Johnson ([id number]) [facility] ([facility]) [address] [place] [address] MCH (RBC) [Entitic mass] 30.7 pg Normal 26.0-34.0 [facility] Comment on above: Performed By: #### 5 2969-3 #### ALON Johnson ([id number]) [facility] ([facility]) [address] [place] [address] MCHC (RBC) [Mass/Vol] 33.9 g/dL Normal 32.0-36.0 [facility] Comment on above: Performed By: #### 5 2969-3 #### ALON Johnson ([id number]) [facility] ([facility]) [address] [place] [address] MCV (RBC) [Entitic vol] 91 fL Normal 80-100 [facility] Comment on above: Performed By: #### 5 2969-3 #### ALON Johnson ([id number]) [facility] ([facility]) [address] [place] [address] Nucleated RBC/100 WBC (Bld) [Ratio] 0.0 /100 WBCs Normal 0.0-0.0 [facility] Comment on above: Performed By: #### 5 2969-3 #### ALON Johnson ([id number]) [facility] ([facility]) [address] [place] [address] Platelets (Bld) [#/Vol] 215 x10*3/uL Normal 150-450 [facility] Comment on above: Performed By: #### 5 2969-3 #### ALON Johnson ([id number]) [facility] ([facility]) [address] [place] [address] RBC (Bld) [#/Vol] 3.45 x10*6/uL Low 4.00-5.20 [facility] Comment on above: Performed By: #### 5 2969-3 #### ALON Johnson ([id number]) [facility] ([facility]) [address] [place] [address] WBC (Bld) [#/Vol] 4.0 x10*3/uL Low 4.4-11.3 [facility] Comment on above: Performed By: #### 5 2969-3 #### ALON Johnson ([id number]) [facility] ([facility]) [address] [place] [address] Gastrointestinal pathogens i dentified HANK+probe Nom (Stl)Ordered By: Edwige Bronson on 03-10-2023 Campylobacter Group Not detected Not Detected [facility] E. coli stx1 gene HANK+probe Ql (Stl) Not detected Not Detected [facility] E. coli stx2 gene HANK+probe Ql (Stl) Not detected Not Detected [facility] Interpretation and review of laboratory results Normal [facility] Norovirus genogroup I and II RNA HANK+probe Nom (Stl) Not detected Not Detected [facility] Rotavirus RNA HANK+probe Nom (Stl) Not detected Not Detected [facility] Salmonella species Not detected Not Detected [facility] Shigella sp DNA HANK+probe Ql (Unsp spec) Not detected Not Detected [facility] Vibrio Group Not detected Not Detected [facility] Y. enterocolitica DNA HANK+probe Ql (Stl) Not detected Not Detected [facility] Glucose Test strip manual (B ld) [Mass/Vol]on 03-10-2023 Glucose [Mass/Vol] 104 mg/dL High 74 - 99 mg/dL [facility] Interpretation and review of laboratory results Abnormal [facility] Glucose [Mass/Vol] 104 mg/dL High 74-[address] [facility] Comment on above: Performed By: #### 5 2969-3 #### ALON Johnson ([id number]) [facility] ([facility]) [address] [place] [address] Glucose [Mass/Vol] 82 mg/dL 74 - 99 mg/dL [facility] Glucose [Mass/Vol] 109 mg/dL High 74 - 99 mg/dL [facility] Interpretation and review of laboratory results Normal [facility] Interpretation and review of laboratory results Abnormal [facility] Glucose [Mass/Vol] 109 mg/dL High 74-[address] [facility] Comment on above: Performed By: #### 5 2969-3 #### ALON Johnson ([id number]) [facility] ([facility]) [address] [place] [address] Glucose [Mass/Vol] 84 mg/dL 74 - 99 mg/dL [facility] Interpretation and review of laboratory results Normal [facility] Glucose [Mass/Vol] 84 mg/dL Normal 74-[address] [facility] Comment on above: Performed By: #### 5 2969-3 #### ALON Johnson ([id number]) [facility] ([facility]) [address] [place] [address] Glucose [Mass/Vol] 79 mg/dL 74 - 99 mg/dL [facility] Interpretation and review of laboratory results Normal [facility] Glucose [Mass/Vol] 79 mg/dL Normal 74-[address] [facility] Comment on above: Performed By: #### 5 2969-3 #### ALON Johnson ([id number]) [facility] ([facility]) [address] [place] [address] Basic metabolic 2000 panelon 03-09-2023 Anion gap [Moles/Vol] 10 mmol/L NINF - 19 mmol/L [facility] Calcium [Mass/Vol] 8.3 mg/dL Low 8.5 - 10.4 mg/dL [facility] Chloride [Moles/Vol] 105 mmol/L 97 - 107 mmol/L [facility] CO2 [Moles/Vol] 20 mmol/L Low 24 - 31 mmol/L [facility] Creatinine [Mass/Vol] 0.60 mg/dL 0.40 - 1.60 mg/dL [facility] eGFR - PINF [facility] Comment on above: Calculations of jessica mated GFR are performed using the 2020 CKD-EPI Study Refit equation without the race variable for the IDMS-Traceable creatinine methods. https://jasn.asnjournals.org/content//ASN.05981422 88 Glucose [Mass/Vol] 98 mg/dL 65 - 99 mg/dL [facility] Interpretation and review of laboratory results Abnormal [facility] Potassium [Moles/Vol] 3.7 mmol/L 3.4 - 5.1 mmol/L [facility] Sodium [Moles/Vol] 135 mmol/L 133 - 145 mmol/L [facility] Urea nitrogen [Mass/Vol] mg/dL Low 8 - 25 mg/dL [facility] Comment on above: Result rechecked [facility] Anion gap [Moles/Vol] 10 mmol/L Normal <=19 [facility] Comment on above: Performed By: #### 2 4321-2 ####MELISA Galvan ([id number])[facility] ()[address] [place] [address] Calcium [Mass/Vol] 8.3 mg/dL Low 8.5-10.[address] [facility] Comment on above: Performed By: #### 2 4321-2 ####MELISA Galvan ([id number])[facility] ()[address] [place] [address] Chloride [Moles/Vol] 105 mmol/L Normal 97-107 [facility] Comment on above: Performed By: #### 2 4321-2 ####MELISA Galvan ([id number])[facility] ()[address] [place] [address] CO2 [Moles/Vol] 20 mmol/L Low 24-31 [facility] Comment on above: Performed By: #### 2 4321-2 ####MELISA Galvan (40853)[facility] ()[address] [place] [address] Creatinine [Mass/Vol] 0.60 mg/dL Normal 0.40-1.60 [facility] Comment on above: Performed By: #### 2 4321-2 ####MELISA Galvan ([id number])[facility] ()[address] [place] [address] GFR/1.73 sq M.predicted MDRD (S/P/Bld) [Vol rate/Area] mL/min/{1.73_m2} Normal >60 [facility] Comment on above: Result Comment: Calc ulations of estimated GFR are performed using the 2020 CKD-EPI Study Refit equation without the race variable for the IDMS-Traceable creatinine methods. https://jasn.asnjournals.org/content//ASN.06017927 88 Performed By: #### 2 4321-2 ####MELISA Galvan ([id number])[facility] ()[address] [place] [address] Glucose [Mass/Vol] 98 mg/dL Normal 65-[address] [facility] Comment on above: Performed By: #### 2 4321-2 ####MELISA Galvan ([id number])[facility] ()[address] [place] [address] Potassium [Moles/Vol] 3.7 mmol/L Normal 3.4-5.1 [facility] Comment on above: Performed By: #### 2 4321-2 ####MELISA Galvan ([id number])[facility] ()[address] [place] [address] Sodium [Moles/Vol] 135 mmol/L Normal 133-[address] [facility] Comment on above: Performed By: #### 2 4321-2 ####MELISA Galvan ([id number])[facility] ()[address] [place] [address] Urea nitrogen [Mass/Vol] mg/dL Low 8-25 [facility] Comment on above: Result Comment: Resu lt rechecked Performed By: #### 2 4321-2 ####MELISA Galvan ([id number])[facility] ()[address] [place] [address] C. difficile toxin A+B tcdA+ tcdB genes HANK+probe Ql (Stl)on 03-09-2023 Interpretation and review of laboratory results Normal [facility] This test is an FDA-cleared real-time PCR [...] performed more than once per 7 days. [facility] C. difficile, PCRon 03-09-19 24 C. difficile toxin A+B tcdA+tcdB genes HANK+probe Ql (Stl) Not detected Not Detected [facility] CBC panel Auto (Bld)on 03-09 Erythrocyte distribution width (RBC) [Ratio] 12.7 % 11.5 - 14.5 % [facility] Hematocrit (Bld) [Volume fraction] 34.6 % Low 36.0 - 46.0 % [facility] Hemoglobin (Bld) [Mass/Vol] 11.7 g/dL Low 12.0 - 16.0 g/dL [facility] Interpretation and review of laboratory results Abnormal [facility] MCH (RBC) [Entitic mass] 30.8 pg 26.0 - 34.0 pg [facility] MCHC (RBC) [Mass/Vol] 33.8 g/dL 32.0 - 36.0 g/dL [facility] MCV (RBC) [Entitic vol] 91 fL 80 - 100 fL [facility] Nucleated RBC/100 WBC (Bld) [Ratio] 0.0 % [facility] Platelets (Bld) [#/Vol] 226 10*3/uL [facility] RBC (Bld) [#/Vol] 3.80 10*6/uL Low [facility] WBC (Bld) [#/Vol] 6.8 10*3/uL [facility] Erythrocyte distribution width (RBC) [Ratio] 12.7 % Normal 11.5-14.5 [facility] Comment on above: Performed By: #### 5 8410-2 ####MELISA Galvan ([id number])[facility] ()[address] [place] [address] Hematocrit (Bld) [Volume fraction] 34.6 % Low 36.0-46.0 [facility] Comment on above: Performed By: #### 5 8410-2 ####MELISA Galvan ([id number])[facility] ()[address] [place] [place] [address] Hemoglobin (Bld) [Mass/Vol] 11.7 g/dL Low 12.0-16.0 [facility] Comment on above: Performed By: #### 5 8410-2 ####MELISA Galvna ([id number])[facility] ()[address] [place] [address] MCH (RBC) [Entitic mass] 30.8 pg Normal 26.0-34.0 [facility] Comment on above: Performed By: #### 5 8410-2 ####MELISA Galvan ()[facility] ()[address] [place] [address] MCHC (RBC) [Mass/Vol] 33.8 g/dL Normal 32.0-36.0 [facility] Comment on above: Performed By: #### 5 8410-2 ####MELISA Galvan ()[facility] ()[address] [place] [address] MCV (RBC) [Entitic vol] 91 fL Normal 80-100 [facility] Comment on above: Performed By: #### 5 8410-2 ####MELISA Galvan ()[facility] ()[address] [place] [address] Nucleated RBC/100 WBC (Bld) [Ratio] 0.0 /100 WBCs Normal 0.0-0.0 [facility] Comment on above: Performed By: #### 5 8410-2 ####MELISA Galvan ([id number])[facility] ()[address] [place] [address] Platelets (Bld) [#/Vol] 226 x10*3/uL Normal 150-450 [facility] Comment on above: Performed By: #### 5 8410-2 ####MELISA Galvan ([id number])[facility] ()[address] [place] [address] RBC (Bld) [#/Vol] 3.80 x10*6/uL Low 4.00-5.20 [facility] Comment on above: Performed By: #### 5 8410-2 ####MELISA Galvan ()[facility] ()[address] [place] [address] WBC (Bld) [#/Vol] 6.8 x10*3/uL Normal 4.4-11.3 [facility] Comment on above: Performed By: #### 5 8410-2 ####MELISA ALEXANDRO Galvan ([id number])[facility] ()[address] [place] [address] Clostridioides difficile tox in A+B tcdA+tcdB geneson 03-09-2023 C. difficile toxin A+B tcdA+tcdB genes HANK+probe Ql (Stl) Clostridioides difficile toxin A+B tcdA+tcdB genes Not Detected Normal Not Detected [facility] Comment on above: Order Comment: This [...] Performed By: #### 8 0685-1 ####MELISA Galvan ([id number])[facility] ()[address] [place] [address] Gastrointestinal pathogens i dentifiedon 03-09-2023 Gastrointestinal pathogens [...] Rotavirus RNA Not Detected Normal Not Detected [facility] Comment on above: Performed By: #### 5 2969-3 #### ALON Johnson (40393) [facility] [facility] ([facility]) [address] [place] [id number] Glucose Test strip manual (B ld) [Mass/Vol]on 03-09-2023 Glucose [Mass/Vol] 82 mg/dL Normal 74-[address] [facility] Comment on above: Performed By: #### 5 2969-3 #### ALON Johnson ([id number]) [facility] ([facility]) [address] [place] [address] Glucose [Mass/Vol] 91 mg/dL 74 - 99 mg/dL [facility] Interpretation and review of laboratory results Normal [facility] Glucose [Mass/Vol] 91 mg/dL Normal 74-[address] [facility] Comment on above: Performed By: #### 5 2969-3 #### ALON Johnson ([id number]) [facility] ([facility]) [address] [place] [address] Glucose [Mass/Vol] 83 mg/dL 74 - 99 mg/dL [facility] Interpretation and review of laboratory results Normal [facility] Glucose [Mass/Vol] 83 mg/dL Normal 74-[address] [facility] Comment on above: Performed By: #### 2 341-6 ####MELISA Galvan ([id number])[facility] ()[address] [place] [address] Glucose [Mass/Vol] 82 mg/dL 74 - 99 mg/dL [facility] Interpretation and review of laboratory results Normal [facility] Glucose [Mass/Vol] 82 mg/dL Normal 74-[address] [facility] Comment on above: Performed By: #### 2 341-6 ####MELISA Galvan ([id number])[facility] ()[address] [place] [address] Glucose [Mass/Vol] 120 mg/dL High 74 - 99 mg/dL [facility] Interpretation and review of laboratory results Abnormal [facility] Glucose [Mass/Vol] 120 mg/dL High 74-[address] [facility] Comment on above: Performed By: #### 2 341-6 ####MELISA ALEXANDRO Galvan ([id number])[facility] ()[address] [place] [address] Glucose [Mass/Vol] 62 mg/dL Low 74 - 99 mg/dL [facility] Interpretation and review of laboratory results Abnormal [facility] Glucose [Mass/Vol] 62 mg/dL Low 74-[address] [facility] Comment on above: Performed By: #### 2 341-6 ####MELISA Galvan ([id number])[facility] ()[address] [place] [address] Basic metabolic 2000 panelon 03-08-2023 Anion gap [Moles/Vol] 8 mmol/L NINF - 19 mmol/L [facility] Calcium [Mass/Vol] 8.2 mg/dL Low 8.5 - 10.4 mg/dL [facility] Chloride [Moles/Vol] 106 mmol/L 97 - 107 mmol/L [facility] CO2 [Moles/Vol] 22 mmol/L Low 24 - 31 mmol/L [facility] Creatinine [Mass/Vol] 0.70 mg/dL 0.40 - 1.60 mg/dL [facility] eGFR - PINF [facility] Comment on above: Calculations of jessica mated GFR are performed using the 2020 CKD-EPI Study Refit equation without the race variable for the IDMS-Traceable creatinine methods. https://jasn.asnjournals.org/content//ASN.23393668 88 Glucose [Mass/Vol] 91 mg/dL 65 - 99 mg/dL [facility] Interpretation and review of laboratory results Abnormal [facility] Potassium [Moles/Vol] 3.7 mmol/L 3.4 - 5.1 mmol/L [facility] Sodium [Moles/Vol] 136 mmol/L 133 - 145 mmol/L [facility] Urea nitrogen [Mass/Vol] 3 mg/dL Low 8 - 25 mg/dL [facility] Anion gap [Moles/Vol] 8 mmol/L Normal <=19 [facility] Comment on above: Performed By: #### 2 4323-8 #### MELISA Galvan ([id number]) [facility] () [address] [place] [address] Calcium [Mass/Vol] 8.2 mg/dL Low 8.5-10.[address] [facility] Comment on above: Performed By: #### 2 4323-8 #### MELISA Galvan (09254) [facility] () [address] [place] [address] Chloride [Moles/Vol] 106 mmol/L Normal 97-107 [facility] Comment on above: Performed By: #### 2 4323-8 #### MELISA Galvan (73209) [facility] () [address] [place] [address] CO2 [Moles/Vol] 22 mmol/L Low 24-31 [facility] Comment on above: Performed By: #### 2 4323-8 #### MELISA Galvan ([id number]) [facility] () [address] [place] [address] Creatinine [Mass/Vol] 0.70 mg/dL Normal 0.40-1.60 [facility] Comment on above: Performed By: #### 2 4323-8 #### MELISA Galvan ([id number]) [facility] () [address] [place] [address] GFR/1.73 sq M.predicted MDRD (S/P/Bld) [Vol rate/Area] mL/min/{1.73_m2} Normal >60 [facility] Comment on above: Result Comment: Calc ulations of estimated GFR are performed using the 2020 CKD-EPI Study Refit equation without the race variable for the IDMS-Traceable creatinine methods. https://jasn.asnjournals.org/content/early/ASN.30471286 88 Performed By: #### 2 4323-8 #### MELISA Galvan ([id number]) [facility] () [address] [place] [address] Glucose [Mass/Vol] 91 mg/dL Normal 65-[address] [facility] Comment on above: Performed By: #### 2 4323-8 #### MELISA Galvan ([id number]) [facility] () [address] [place] [address] Potassium [Moles/Vol] 3.7 mmol/L Normal 3.4-5.1 [facility] Comment on above: Performed By: #### 2 4323-8 #### MELISA Galvan (45261) [facility] () [address] [place] [address] Sodium [Moles/Vol] 136 mmol/L Normal 133-[address] [facility] Comment on above: Performed By: #### 2 4323-8 #### MELISA Galvan (63846) [facility] () [address] [place] [address] Urea nitrogen [Mass/Vol] 3 mg/dL Low 8-25 [facility] Comment on above: Performed By: #### 2 4323-8 #### MELISA Galvan ([id number]) [facility] () [address] [place] [address] CBC panel Auto (Bld)on 03-08 Erythrocyte distribution width (RBC) [Ratio] 12.8 % 11.5 - 14.5 % [facility] Hematocrit (Bld) [Volume fraction] 32.2 % Low 36.0 - 46.0 % [facility] Hemoglobin (Bld) [Mass/Vol] 10.9 g/dL Low 12.0 - 16.0 g/dL [facility] Interpretation and review of laboratory results Abnormal [facility] MCH (RBC) [Entitic mass] 31.3 pg 26.0 - 34.0 pg [facility] MCHC (RBC) [Mass/Vol] 33.9 g/dL 32.0 - 36.0 g/dL [facility] MCV (RBC) [Entitic vol] 93 fL 80 - 100 fL [facility] Nucleated RBC/100 WBC (Bld) [Ratio] 0.0 % [facility] Platelets (Bld) [#/Vol] 171 10*3/uL [facility] RBC (Bld) [#/Vol] 3.48 10*6/uL [facility] WBC (Bld) [#/Vol] 4.2 10*3/uL [facility] Erythrocyte distribution width (RBC) [Ratio] 12.8 % Normal 11.5-14.5 [facility] Comment on above: Performed By: #### 2 4323-8 #### MELISA Galvan (79458) [facility] () [address] [place] [address] Hematocrit (Bld) [Volume fraction] 32.2 % Low 36.0-46.0 [facility] Comment on above: Performed By: #### 2 4322-8 #### MELISA Galvan (24165) [facility] () [address] [place] [address] Hemoglobin (Bld) [Mass/Vol] 10.9 g/dL Low 12.0-16.0 [facility] Comment on above: Performed By: #### 2 432-8 #### MELISA Galvan (16481) [facility] () [address] [place] [address] MCH (RBC) [Entitic mass] 31.3 pg Normal 26.0-34.0 [facility] Comment on above: Performed By: #### 2 432-8 #### MELISA Galvan (16216) [facility] () [address] [place] [address] MCHC (RBC) [Mass/Vol] 33.9 g/dL Normal 32.0-36.0 [facility] Comment on above: Performed By: #### 2 432-8 #### MELISA Galvan (04725) [facility] () [address] [place] [address] MCV (RBC) [Entitic vol] 93 fL Normal 80-100 [facility] Comment on above: Performed By: #### 2 4323-8 #### MELISA Galvan (17148) [facility] () [address] [place] [address] Nucleated RBC/100 WBC (Bld) [Ratio] 0.0 /100 WBCs Normal 0.0-0.0 [facility] Comment on above: Performed By: #### 2 4323-8 #### MELISA Galvan ([id number]) [facility] () [address] [place] [address] Platelets (Bld) [#/Vol] 171 x10*3/uL Normal 150-450 [facility] Comment on above: Performed By: #### 2 4323-8 #### MELISA Galvan (41350) [facility] () [address] [place] [address] RBC (Bld) [#/Vol] 3.48 x10*6/uL Low 4.00-5.20 [facility] Comment on above: Performed By: #### 2 4323-8 #### MELISA Galvan (41357) [facility] () [address] [place] [address] WBC (Bld) [#/Vol] 4.2 x10*3/uL Low 4.4-11.3 [facility] Comment on above: Performed By: #### 2 4323-8 #### MELISA Galvan (18540) [facility] () [address] [place] [address] Glucose Test strip manual (B ld) [Mass/Vol]on 03-08-2023 Glucose [Mass/Vol] 89 mg/dL 74 - 99 mg/dL [facility] Interpretation and review of laboratory results Normal [facility] Glucose [Mass/Vol] 89 mg/dL Normal 74-[address] [facility] Comment on above: Performed By: #### 2 341-6 ####MELISA Galvan (68796)[facility] ()[address] [place] [address] Glucose [Mass/Vol] 85 mg/dL 74 - 99 mg/dL [facility] Interpretation and review of laboratory results Normal [facility] Glucose [Mass/Vol] 85 mg/dL Normal 74-[address] [facility] Comment on above: Performed By: #### 2 341-6 ####MELISA Galvan (30474)[facility] ()[address] [place] [address] Glucose [Mass/Vol] 151 mg/dL High 74 - 99 mg/dL [facility] Interpretation and review of laboratory results Abnormal [facility] Glucose [Mass/Vol] 151 mg/dL High 74-[address] [facility] Comment on above: Performed By: #### 2 341-6 ####MELISA Galvan ([id number])[facility] ()[address] [facility] [place] [place] [address] Glucose [Mass/Vol] 89 mg/dL 74 - 99 mg/dL [facility] Interpretation and review of laboratory results Normal [facility] Glucose [Mass/Vol] 89 mg/dL Normal 74-[address] [facility] Comment on above: Performed By: #### 2 4323-8 #### MELISA Galvan (80229) [facility] () [address] [place] [address] Glucose [Mass/Vol] 97 mg/dL 74 - 99 mg/dL [facility] Interpretation and review of laboratory results Normal [facility] Glucose [Mass/Vol] 97 mg/dL Normal 74-[address] [facility] Comment on above: Performed By: #### 2 4323-8 #### MELISA Galvan (03603) [facility] () [address] [place] [address] Glucose [Mass/Vol] 102 mg/dL High 74 - 99 mg/dL [facility] Interpretation and review of laboratory results Abnormal [facility] Glucose [Mass/Vol] 102 mg/dL High 74-[address] [facility] Comment on above: Performed By: #### 2 4323-8 #### MELISA Galvan ([id number]) [facility] (MW) [address] [place] [address] Surgical pathology studyOrde red By: Melisa Mc on 03-08-2023 Laboratory comment John (Report) y6dapWGnINUyy4sgMJV mbGFuZzEwMzNcZnRuYm pcdWMxIHtccnRmMVxzc 8NnR1EpWeTmRYawczEq XGRlZmxhbmcxMDMzXGZ 0bmJqXHVjMVxkZWZmMH teXm6spGUwzPtjHzZuU HTzc7ijogKVZZgaTQRE TFg2y2nlRIBtTvT6pRD zHWolH5jsxeFyuCVoZ9 Hsi6NxWEn0aU98WACmw L6jrTQjYDniraLpCiS7 PYvhIDEoYgG8VIYlrZN fJTOoI4jvGYXsCBgfZX PjEAynjYRxVKX2dSaig 2O2fCAwpOVphEgpXtGg GhIaPvFVx5YlVEn9yTz hA3AwUSDeRjW5rSMiXJ YeWDhtIQViVPOpgdA2v U03MMeazcN0pFCaw1Bo d68ke726gJ6mxLHkQBX 3MTIyNDBccGFwZXJoMT H9UXHleGUtP0whSyHzf ZMsC2VvNsKicFZcD1Jq EnSenLDxD6NvAuNrmSR dQHAunOV0BPmfu228UP M2ClUyXG8lN3Zqc0V5j F2kjOAzRLGeoWPkTaTs DRYvcq3woWZgUKzqf1A cGTJ6rsI7zKJubJGkLY VrOB29Imapb4WsKlhtN HP1IKMqlrCjx9Tot3ld AwLnudCaN7poZ7ReFKS oZWFkXHBnYnJkcmZvb3 Erz0OybOFqlRi4w9aaF MIeZTLycBjgl5nrTTV6 IGJpP1C5qIZql2msHCq rUTAvhKC5ktC5YVvnTD HynxI0knD4AJpnCDUkg PK9vzA7UImtIHNuQqK1 upG0RVlsOVJtEVS7KxC mPZSwh1LvbztsQeMak8 QkiPWaVTpmH99en903K AOthbJxJ0oipONtcohv fQTdlxubISepayA7MJH sXHBsYWluXGYxXGZzMj BcbGFuZzEwMzNcaGlja FxmMVxkYmNoXGYxXGxv B9dgGsLxLzUvADORbOD 4yFDsl2tztkQ4yHKzPR 9gLVKryLQulcHjy5H3L UM3gKYtlB9tzTCgMABn hAPvunDugk73aHUdnGR 1QTHaJNDfxSEcaY9mHF XqJEXNlK7fiMFXlyUbn bZtZKXleEtjot0FpTZe kj8mvUTeD4FxoZnclAA zIHRoYXQgdGhleSBoYX DjKASwyspoo9SqJBUjj XAnA7GkDA0eQYJzft93 [facility] Work Phone: Pathology report Cancer Narrative Surgical Pathology Case: [id number] Authorizing Provider: Sherry Magaña MD Collected: 03/05/2023 1125 Ordering Location: [facility] Received: 03/05/2023 1314 Center OR Pathologist: Melisa Mc MD Specimen: LIGAMENT, Median Arcuate Ligament [facility] Work Phone: Pathology report final diagnosis Narrative k2ynkOZlSQXdaJYjDSN wNFxhbnNpXHNwbHRwZ3 MrhaycPQynNA0pIE6pj GxhdHRveWVuXGRlZmYw k1pct486xYPsw5jqDMQ YPQjuYDWKTVd6u6yxPC RPiofwsZi2uJgzX00um 9T7KnjdO3kbTTDsKFlo XIQmYWkxxRWdNZz6UFX hcGVydzEyMjQwXHBhcG AkxSF9WTQqAN5vphkoE FjiYOmlMLLievT9YLTg fSMpW4SxDLCgCE4mjsv kGWI7FAycVNUdXHV9Un FxYGVlf3Ebphg7ZsQno Ge5s3zqCGAwFDBpjMbx k1fnBYO6TUIenGUxN6z ksJ3zRXBpAY6rwrxpz7 tgSMjyQNcnPEPadZG9a bN7RTImdGZnU7HveV2u NDQwXHBhcmRccGxhaW5 cZjFcZnMyMlxjZjFccG QxKK7PNEyGSqYEQuTOA PKJPGyZT6WNMQ4ZQRNL PHTNM2lXCamhgDMkLTV mVnVPgTZur6DxnGYin2 JqZM8lmJLzvIEsmmDtl 92qoOjfHyIqD97adoHa c8UkqCxaiRrrjQIjyJk ni3SmROHsy0R5BJhkD3 xpbmljYWxseSBtZWRpY A5yJGOvgKT5SCSyyEdj vQQivXUpxM5aix2nPU4 ccGFyfQ== [facility] Work Phone: Pathology report gross observation Narrative m0tgfCOzDOJkmVSDKUF 1LJStDC7brAflmWe4cR bmQZSpxsA0pERdMQtns 0sjRMY3k3zoucOQPbap SCZaDV7oQBawZRAvGW5 nZmUwXGRlZmYxXHBhcG VydzEyMjQwXHBhcGVya EF0TXBgYX2lfzznTKir FOvdLGHtueM4ZLNzdQK pZ5DzNTYeSS0oqnzpWE G4BGUOHckeNt1jtKJte CANCntcZjFcZmNoYXJz XUNnJSSsrYrnN5Jwl2K uBEm5xU3Zz7hdFmqvX0 jbjaDgbBDdSa8ylLVAy yitnHb9xT5OGLMtT5Dl AR0Yb1mqJQZytSKeYKM 5TMgdu4jkEKsqDID4AW OhTJScVGLeAW5AUtAdT SrsNRDpYIIeJVs3NCg3 WJGQXRZcQyW4BWJ9AVs 4AVc9TMhrmgzxZZl2AN QrNQaxdSZrQJ3dzMjpX ezmkFdxi3BgqOPtGXBn IFxcaWQgNTEwMDIgXFx tNpZAAlGuFfG8EuEzSP ZmMaS2KEn5COXBCfGtD qQfWIYxYtc7ICYwLLr8 HXa0PPmTIvN8SkD8OKm 0AkcyIEK4KfQiRDnogU BcXHQgMiBcXHNzIDMgX NagjRScJM0ukKomQHDl QI9HWXQnSBdzJQXvfKE QKIV4VP9rKLTGMivadN ZuRKLkVKsgvJBvV0coN jJcZnMyMCBBOiBSZWNl aXZlZCBmcmVzaCBsYWJ lbGVkIHdpdGggdGhlIH NojOnyyxWlhkClYY0rX HAcHZDig6NewLNzhFBs gB9dXQLzAK2nWNQmFKO pAK9oSPTdcEB5UUOtlI dhbWVudCIsIGFyZSAyI GlycmVndWxhciBhbmQg aBZhBBMdRQAub3G5FGW id3G1SQMbrmWaeRXmwG TyjAMbp9DfbT0yDVOgX LBdwSX5OGBzVeV5NTTx EiVspPYiiyXjV8snIOy rmXUmJEIXrPFov6CkX6 etGZ1atTZuo3ZquSlbw mVkIGFuZCBlbnRpcmVs bMEknICqbQB7KWYyqD4 gJDRqWQAhFHH3MF7ymE XuUT7SRMPMEARtdvXCF vhgMVUkUBbLgl8xmtDw gZMuUFD1wY0wCKVwubE oaz8aICFdrEqcoJSjCA 2BCH8mamKsk2c7pUIFl 3NwaXRhbHMgTGFrZSBX HFC2BS6yGOqpOFzqC8N knKGmFLWobvJBJxV1XV NtHSW2R2jgFSNEinQej QTaeJXiFV7NP3awwL64 O7vviEfkN9eyciL0HLO 9BSduIZEyKNynl2RpEU xlcGljWHNhMzAgDQpQa K4dMNzyLWW5AWksCEQu LTYwMjUgIEZheDogKDQ 7TCscThTuXFZ6DUUPVr hhbNykPcZoqWXqWaZ1A CEzwSEyMTA3BS8jhGuw UNFtK9QrM2OtdhS2AEZ jrlCVHxpwRLBzEF0GGE PuPYskFI7GdE== [facility] Work Phone: Pathology report relevant history Narrative m7tatUIqXKEdh7taSKV mbGFuZzEwMzNcZnRuYm o3OFZnxfK3Ogl0BYTgO AxdkH0sYHQsLPihP2bc nfKaeRJpE8Nkv5XjANs 6uC1lwQftiW8hBmMhWj UsKVEYijGfa6NaDPhhO 54pp3ndOmstKBHyUQJs rEObMLQnQ4BtbOFerCg kZJ4bmwKzv7wpRXWerX CdQQJLKi7LF3CvZKsGH rixUL6ofAZmKH4= [facility] Work Phone: [facility] Work Phone: Basic metabolic 2000 panelon 03-07-2023 Anion gap [Moles/Vol] 7 mmol/L NINF - 19 mmol/L [facility] Calcium [Mass/Vol] 8.0 mg/dL Low 8.5 - 10.4 mg/dL [facility] Chloride [Moles/Vol] 111 mmol/L High 97 - 107 mmol/L [facility] CO2 [Moles/Vol] 21 mmol/L Low 24 - 31 mmol/L [facility] Creatinine [Mass/Vol] 0.70 mg/dL 0.40 - 1.60 mg/dL [facility] eGFR - PINF [facility] Comment on above: Calculations of jessica mated GFR are performed using the 2020 CKD-EPI Study Refit equation without the race variable for the IDMS-Traceable creatinine methods. https://jasn.asnjournals.org/content/early/ASN.66599511 88 Glucose [Mass/Vol] 100 mg/dL High 65 - 99 mg/dL [facility] Interpretation and review of laboratory results Abnormal [facility] Potassium [Moles/Vol] 3.9 mmol/L 3.4 - 5.1 mmol/L [facility] Sodium [Moles/Vol] 139 mmol/L 133 - 145 mmol/L [facility] Urea nitrogen [Mass/Vol] 4 mg/dL Low 8 - 25 mg/dL [facility] Anion gap [Moles/Vol] 7 mmol/L Normal <=19 [facility] Comment on above: Performed By: #### 5 7021-8 #### MELISA Galvan (37443) [facility] () [address] [place] [address] Calcium [Mass/Vol] 8.0 mg/dL Low 8.5-10.[address] [facility] Comment on above: Performed By: #### 5 7021-8 #### MELISA Galvan (08027) [facility] () [address] [place] [address] Chloride [Moles/Vol] 111 mmol/L High 97-107 [facility] Comment on above: Performed By: #### 5 7021-8 #### MELISA Galvan (60828) [facility] () [address] [place] [address] CO2 [Moles/Vol] 21 mmol/L Low 24-31 [facility] Comment on above: Performed By: #### 5 7021-8 #### MELISA Galvan (07737) [facility] () [address] [place] [address] Creatinine [Mass/Vol] 0.70 mg/dL Normal 0.40-1.60 [facility] Comment on above: Performed By: #### 5 7021-8 #### MELISA Galvan (51253) [facility] () [address] [place] [address] GFR/1.73 sq M.predicted MDRD (S/P/Bld) [Vol rate/Area] mL/min/{1.73_m2} Normal >60 [facility] Comment on above: Result Comment: Calc ulations of estimated GFR are performed using the 2020 CKD-EPI Study Refit equation without the race variable for the IDMS-Traceable creatinine methods. https://jasn.asnjournals.org/content//ASN.15165656 88 Performed By: #### 5 7021-8 #### MELISA Galvan (28100) [facility] () [address] [place] [address] Glucose [Mass/Vol] 100 mg/dL High 65-[address] [facility] Comment on above: Performed By: #### 5 7021-8 #### MELISA Galvan (01695) [facility] () [address] [place] [address] Potassium [Moles/Vol] 3.9 mmol/L Normal 3.4-5.1 [facility] Comment on above: Performed By: #### 5 7021-8 #### MELISA Galvan (28519) [facility] () [address] [place] [address] Sodium [Moles/Vol] 139 mmol/L Normal 133-[address] [facility] Comment on above: Performed By: #### 5 7021-8 #### MELISA Galvan (50130) [facility] () [address] [place] [address] Urea nitrogen [Mass/Vol] 4 mg/dL Low 8-25 [facility] Comment on above: Performed By: #### 5 7021-8 #### MELISA Galvan (74675) [facility] () [address] [place] [address] CBC panel Auto (Bld)on 03-07 Erythrocyte distribution width (RBC) [Ratio] 13.2 % 11.5 - 14.5 % [facility] Hematocrit (Bld) [Volume fraction] 33.3 % Low 36.0 - 46.0 % [facility] Hemoglobin (Bld) [Mass/Vol] 11.0 g/dL Low 12.0 - 16.0 g/dL [facility] Interpretation and review of laboratory results Abnormal [facility] MCH (RBC) [Entitic mass] 31.3 pg 26.0 - 34.0 pg [facility] MCHC (RBC) [Mass/Vol] 33.0 g/dL 32.0 - 36.0 g/dL [facility] MCV (RBC) [Entitic vol] 95 fL 80 - 100 fL [facility] Nucleated RBC/100 WBC (Bld) [Ratio] 0.0 % [facility] Platelets (Bld) [#/Vol] 155 10*3/uL [facility] RBC (Bld) [#/Vol] 3.51 10*6/uL Low [facility] WBC (Bld) [#/Vol] 5.1 10*3/uL [facility] Erythrocyte distribution width (RBC) [Ratio] 13.2 % Normal 11.5-14.5 [facility] Comment on above: Performed By: #### 5 7021-8 #### MELISA Galvan (69090) [facility] () [address] [place] [address] Hematocrit (Bld) [Volume fraction] 33.3 % Low 36.0-46.0 [facility] Comment on above: Performed By: #### 5 7021-8 #### MELISA Galvan (49335) [facility] () [address] [place] [address] Hemoglobin (Bld) [Mass/Vol] 11.0 g/dL Low 12.0-16.0 [facility] Comment on above: Performed By: #### 5 7021-8 #### MELISA Galvan ([id number]) [facility] () [address] [place] [address] MCH (RBC) [Entitic mass] 31.3 pg Normal 26.0-34.0 [facility] Comment on above: Performed By: #### 5 7021-8 #### MELISA Galvan ([id number]) [facility] () [address] [place] [address] MCHC (RBC) [Mass/Vol] 33.0 g/dL Normal 32.0-36.0 [facility] Comment on above: Performed By: #### 5 7021-8 #### MELISA Galvan ([id number]) [facility] () [address] [place] [address] MCV (RBC) [Entitic vol] 95 fL Normal 80-100 [facility] Comment on above: Performed By: #### 5 7021-8 #### MELISA Galvan ([id number]) [facility] () [address] [place] [address] Nucleated RBC/100 WBC (Bld) [Ratio] 0.0 /100 WBCs Normal 0.0-0.0 [facility] Comment on above: Performed By: #### 5 7021-8 #### MELISA Galvan ([id number]) [facility] () [address] [place] [address] Platelets (Bld) [#/Vol] 155 x10*3/uL Normal 150-450 [facility] Comment on above: Performed By: #### 5 7021-8 #### MELISA Galvan ([id number]) [facility] () [address] [place] [address] RBC (Bld) [#/Vol] 3.51 x10*6/uL Low 4.00-5.20 [facility] Comment on above: Performed By: #### 5 7021-8 #### MELISA Galvan ([id number]) [facility] () [address] [place] [address] WBC (Bld) [#/Vol] 5.1 x10*3/uL Normal 4.4-11.3 [facility] Comment on above: Performed By: #### 5 7021-8 #### MELISA Galvan ([id number]) [facility] () [address] [place] [address] Glucose Test strip manual (B ld) [Mass/Vol]on 03-07-2023 Glucose [Mass/Vol] 125 mg/dL High 74 - 99 mg/dL [facility] Interpretation and review of laboratory results Abnormal [facility] Glucose [Mass/Vol] 125 mg/dL High 74-[address] [facility] Comment on above: Performed By: #### 2 4323-8 #### MELISA Galvan ([id number]) [facility] () [address] [place] [address] Glucose [Mass/Vol] 117 mg/dL High 74 - 99 mg/dL [facility] Interpretation and review of laboratory results Abnormal [facility] Glucose [Mass/Vol] 117 mg/dL High 74-[address] [facility] Comment on above: Performed By: #### 2 4323-8 #### MELISA Galvan ([id number]) [facility] () [address] [place] [address] Glucose [Mass/Vol] 98 mg/dL 74 - 99 mg/dL [facility] [facility] Interpretation and review of laboratory results Normal [facility] Glucose [Mass/Vol] 98 mg/dL Normal 74-[address] [facility] Comment on above: Performed By: #### 2 4323-8 #### MELISA Galvan ([id number]) [facility] () [address] [place] [address] Glucose [Mass/Vol] 98 mg/dL 74 - 99 mg/dL [facility] Interpretation and review of laboratory results Normal [facility] Glucose [Mass/Vol] 98 mg/dL Normal 74-[address] [facility] Comment on above: Performed By: #### 2 4323-8 #### MELISA Galvan ([id number]) [facility] () [address] [place] [address] Glucose [Mass/Vol] 108 mg/dL High 74 - 99 mg/dL [facility] Interpretation and review of laboratory results Abnormal [facility] Glucose [Mass/Vol] 108 mg/dL High 74-[address] [facility] Comment on above: Performed By: #### 5 7021-8 #### MELISA Glavan (54461) [facility] () [address] [place] [address] Glucose [Mass/Vol] 119 mg/dL High 74 - 99 mg/dL [facility] Interpretation and review of laboratory results Abnormal [facility] Basic metabolic 2000 panelon 03-06-2023 Anion gap [Moles/Vol] 7 mmol/L NINF - 19 mmol/L [facility] Calcium [Mass/Vol] 8.1 mg/dL Low 8.5 - 10.4 mg/dL [facility] Chloride [Moles/Vol] 109 mmol/L High 97 - 107 mmol/L [facility] CO2 [Moles/Vol] 21 mmol/L Low 24 - 31 mmol/L [facility] Creatinine [Mass/Vol] 0.70 mg/dL 0.40 - 1.60 mg/dL [facility] eGFR - PINF [facility] Comment on above: Calculations of jessica mated GFR are performed using the 2020 CKD-EPI Study Refit equation without the race variable for the IDMS-Traceable creatinine methods. https://jasn.asnjournals.org/content/early/ASN.16972476 88 Glucose [Mass/Vol] 149 mg/dL High 65 - 99 mg/dL [facility] Interpretation and review of laboratory results Abnormal [facility] Potassium [Moles/Vol] 3.7 mmol/L 3.4 - 5.1 mmol/L [facility] Sodium [Moles/Vol] 137 mmol/L 133 - 145 mmol/L [facility] Urea nitrogen [Mass/Vol] 5 mg/dL Low 8 - 25 mg/dL [facility] Anion gap [Moles/Vol] 7 mmol/L Normal <=19 [facility] Comment on above: Performed By: #### 5 7021-8 #### MELISA Galvan (55576) [facility] () [address] [place] [address] Calcium [Mass/Vol] 8.1 mg/dL Low 8.5-10.[address] [facility] Comment on above: Performed By: #### 5 7021-8 #### MELISA Galvan (12741) [facility] () [address] [place] [address] Chloride [Moles/Vol] 109 mmol/L High 97-107 [facility] Comment on above: Performed By: #### 5 7021-8 #### MELISA Galvan (73715) [facility] () [address] [place] [address] CO2 [Moles/Vol] 21 mmol/L Low 24-31 [facility] Comment on above: Performed By: #### 5 7021-8 #### MELISA Galvan (76381) [facility] () [address] [place] [address] Creatinine [Mass/Vol] 0.70 mg/dL Normal 0.40-1.60 [facility] Comment on above: Performed By: #### 5 7021-8 #### MELISA Galvan (60565) [facility] () [address] [place] [address] GFR/1.73 sq M.predicted MDRD (S/P/Bld) [Vol rate/Area] mL/min/{1.73_m2} Normal >60 [facility] Comment on above: Result Comment: Calc ulations of estimated GFR are performed using the 2020 CKD-EPI Study Refit equation without the race variable for the IDMS-Traceable creatinine methods. https://jasn.asnjournals.org/content/early//ASN.08688950 88 Performed By: #### 5 7021-8 #### MELISA Galvan (48401) [facility] () [address] [place] [address] Glucose [Mass/Vol] 149 mg/dL High 65-[address] [facility] Comment on above: Performed By: #### 5 7021-8 #### MELISA Galvan (49623) [facility] () [address] [place] [address] Potassium [Moles/Vol] 3.7 mmol/L Normal 3.4-5.1 [facility] Comment on above: Performed By: #### 5 7021-8 #### MELISA Galvan (94534) [facility] () [address] [place] [address] Sodium [Moles/Vol] 137 mmol/L Normal 133-[address] [facility] Comment on above: Performed By: #### 5 7021-8 #### MELISA Galvan (96193) [facility] () [address] [place] [address] Urea nitrogen [Mass/Vol] 5 mg/dL Low 8-25 [facility] Comment on above: Performed By: #### 5 7021-8 #### MELISA Galvan (16807) [facility] () [address] [place] [address] CBC panel Auto (Bld)on 03-06 Erythrocyte distribution width (RBC) [Ratio] 12.9 % 11.5 - 14.5 % [facility] Hematocrit (Bld) [Volume fraction] 35.1 % Low 36.0 - 46.0 % [facility] Hemoglobin (Bld) [Mass/Vol] 11.8 g/dL Low 12.0 - 16.0 g/dL [facility] Interpretation and review of laboratory results Abnormal [facility] MCH (RBC) [Entitic mass] 30.8 pg 26.0 - 34.0 pg [facility] MCHC (RBC) [Mass/Vol] 33.6 g/dL 32.0 - 36.0 g/dL [facility] MCV (RBC) [Entitic vol] 92 fL 80 - 100 fL [facility] Nucleated RBC/100 WBC (Bld) [Ratio] 0.0 % [facility] Platelets (Bld) [#/Vol] 179 10*3/uL [facility] RBC (Bld) [#/Vol] 3.83 10*6/uL Low [facility] WBC (Bld) [#/Vol] 5.5 10*3/uL [facility] Erythrocyte distribution width (RBC) [Ratio] 12.9 % Normal 11.5-14.5 [facility] Comment on above: Performed By: #### 2 4356-8 #### MELISA Galvan (93266) [facility] () [address] [place] [address] Hematocrit (Bld) [Volume fraction] 35.1 % Low 36.0-46.0 [facility] Comment on above: Performed By: #### 2 4356-8 #### MELISA Galvan (98587) [facility] () [address] [place] [address] Hemoglobin (Bld) [Mass/Vol] 11.8 g/dL Low 12.0-16.0 [facility] Comment on above: Performed By: #### 2 4356-8 #### MELISA Galvan (53881) [facility] () [address] [place] [address] MCH (RBC) [Entitic mass] 30.8 pg Normal 26.0-34.0 [facility] Comment on above: Performed By: #### 2 4356-8 #### MELISA Galvan (64891) [facility] () [address] [place] [address] MCHC (RBC) [Mass/Vol] 33.6 g/dL Normal 32.0-36.0 [facility] Comment on above: Performed By: #### 2 4356-8 #### MELISA Galvan (66559) [facility] () [address] [place] [address] MCV (RBC) [Entitic vol] 92 fL Normal 80-100 [facility] Comment on above: Performed By: #### 2 4356-8 #### MELISA Galvan (26868) [facility] () [address] [place] [address] Nucleated RBC/100 WBC (Bld) [Ratio] 0.0 /100 WBCs Normal 0.0-0.0 [facility] Comment on above: Performed By: #### 2 4356-8 #### MELISA Galvan (09030) [facility] () [address] [place] [address] Platelets (Bld) [#/Vol] 179 x10*3/uL Normal 150-450 [facility] Comment on above: Performed By: #### 2 4356-8 #### MELISA Galvan (54656) [facility] () [address] [place] [address] RBC (Bld) [#/Vol] 3.83 x10*6/uL Low 4.00-5.20 [facility] Comment on above: Performed By: #### 2 4356-8 #### MELISA Galvan (59027) [facility] () [address] [place] [address] WBC (Bld) [#/Vol] 5.5 x10*3/uL Normal 4.4-11.3 [facility] Comment on above: Performed By: #### 2 4356-8 #### MELISA Galvan (05004) [facility] () [address] [place] [address] Glucose Test strip manual (B ld) [Mass/Vol]on 03-06-2023 Glucose [Mass/Vol] 119 mg/dL High 74-[address] [facility] Comment on above: Performed By: #### 5 7021-8 #### MELISA Galvan (43763) [facility] () [address] [place] [address] Glucose [Mass/Vol] 103 mg/dL High 74 - 99 mg/dL [facility] Interpretation and review of laboratory results Abnormal [facility] Glucose [Mass/Vol] 103 mg/dL High 74-[address] [facility] Comment on above: Performed By: #### 5 7021-8 #### MELISA Galvan (77327) [facility] () [address] [place] [address] Glucose [Mass/Vol] 119 mg/dL High 74 - 99 mg/dL [facility] Interpretation and review of laboratory results Abnormal [facility] Glucose [Mass/Vol] 119 mg/dL High 74-[address] [facility] Comment on above: Performed By: #### 5 7021-8 #### MELISA Galvan (16096) [facility] () [address] [place] [address] Glucose [Mass/Vol] 108 mg/dL High 74 - 99 mg/dL [facility] Interpretation and review of laboratory results Abnormal [facility] Glucose [Mass/Vol] 108 mg/dL High 74-[address] [facility] Comment on above: Performed By: #### 5 7021-8 #### MELISA Galvan (57163) [facility] () [address] [place] [address] Glucose [Mass/Vol] 113 mg/dL High 74 - 99 mg/dL [facility] Interpretation and review of laboratory results Abnormal [facility] Glucose [Mass/Vol] 113 mg/dL High 74-[address] [facility] Comment on above: Performed By: #### 5 7021-8 #### MELISA Galvan (28439) [facility] () [address] [place] [address] Glucose [Mass/Vol] 152 mg/dL High 74 - 99 mg/dL [facility] Interpretation and review of laboratory results Abnormal [facility] Glucose [Mass/Vol] 152 mg/dL High 74-[address] [facility] Comment on above: Performed By: #### 2 4356-8 #### MELISA Galvan (82517) [facility] () [address] [place] [address] Magnesiumon 03-06-2023 Magnesium [Mass/Vol] 1.70 mg/dL 1.60 - 3.10 mg/dL [facility] Magnesium [Mass/Vol] 1.70 mg/dL Normal 1.60-3.10 [facility] Comment on above: Performed By: #### 2 4356-8 #### MELISA Galvan (03888) [facility] () [address] [place] [address] No Panel Informationon 03-06 Interpretation and review of laboratory results Normal [facility] Phosphateon 03-06-2023 Phosphate [Mass/Vol] 3.0 mg/dL Normal 2.5-4.5 [facility] Comment on above: Performed By: #### 2 4356-8 #### MELISA ALEXANDRO Galvan ([id number]) [facility] (MW) [address] [place] [address] Phosphoruson 03-06-2023 Phosphate [Mass/Vol] 3.0 mg/dL 2.5 - 4.5 mg/dL [facility] XR CHEST 1 VIEWon 03-06-2023 XR CHEST 1 VIEW Interpreted By: Sara Zarate, STUDY: XR CHEST 1 VIEW; 03/06/2023 7:32 am INDICATION: Signs/Symptoms:post op COMPARISON: None ACCESSION NUMBER(S): [id number] ORDERING CLINICIAN: JASON [place] TECHNIQUE: Frontal and [...] Sara Zarate 03/06/2023 1:48 PM Dictation workstation: [id number] [facility] XR Chest Single viewon 03-06 Appliance positioning as noted above. No consolidation. Signed by: Sara Zarate 03/06/2023 1:48 PM Dictation workstation: [id number] MMODAL Interpreted By: Sara Zarate, STUDY: XR CHEST 1 VIEW; 03/06/2023 7:32 am INDICATION: Signs/Symptoms:post op COMPARISON: None ACCESSION NUMBER(S): [id number] ORDERING CLINICIAN: JASON [place] TECHNIQUE: Frontal and [...] INDICATION: Signs/Symptoms:post op COMPARISON: None ACCESSION NUMBER(S): [id number] ORDERING CLINICIAN: JASON [place] TECHNIQUE: Frontal and [...] Sara Zarate 03/06/2023 1:48 PM Dictation workstation: [id number] [facility] Work Phone: Radiology Study observation (narrative) [facility] Work Phone: XR Chest Single viewOrdered By: Sara Zarate on 03-06-2023 [facility] Work Phone: Basic metabolic 2000 panelon 03-05-2023 Anion gap [Moles/Vol] 13 mmol/L NINF - 19 mmol/L [facility] Calcium [Mass/Vol] 8.0 mg/dL Low 8.5 - 10.4 mg/dL [facility] Chloride [Moles/Vol] 107 mmol/L 97 - 107 mmol/L [facility] CO2 [Moles/Vol] 18 mmol/L Low 24 - 31 mmol/L [facility] Creatinine [Mass/Vol] 0.70 mg/dL 0.40 - 1.60 mg/dL [facility] eGFR - PINF [facility] Comment on above: Calculations of jessica mated GFR are performed using the 2020 CKD-EPI Study Refit equation without the race variable for the IDMS-Traceable creatinine methods. https://jasn.asnjournals.org/content//ASN.30495542 88 Glucose [Mass/Vol] 107 mg/dL High 65 - 99 mg/dL [facility] Interpretation and review of laboratory results Abnormal [facility] Potassium [Moles/Vol] 3.6 mmol/L 3.4 - 5.1 mmol/L [facility] Sodium [Moles/Vol] 138 mmol/L 133 - 145 mmol/L [facility] Urea nitrogen [Mass/Vol] 10 mg/dL 8 - 25 mg/dL [facility] Anion gap [Moles/Vol] 13 mmol/L Normal <=19 [facility] Comment on above: Performed By: #### 2 4356-8 #### MELISA Galvan (60858) [facility] () [address] [place] [address] Calcium [Mass/Vol] 8.0 mg/dL Low 8.5-10.[address] [facility] Comment on above: Performed By: #### 2 4356-8 #### MELISA Galvan (77667) [facility] () [address] [place] [address] Chloride [Moles/Vol] 107 mmol/L Normal 97-107 [facility] Comment on above: Performed By: #### 2 4356-8 #### MELISA Galvan (91205) [facility] () [address] [place] [address] CO2 [Moles/Vol] 18 mmol/L Low 24-31 [facility] Comment on above: Performed By: #### 2 4356-8 #### MELISA Galvan (13188) [facility] () [address] [place] [address] Creatinine [Mass/Vol] 0.70 mg/dL Normal 0.40-1.60 [facility] Comment on above: Performed By: #### 2 4356-8 #### MELISA Galvan (13702) [facility] () [address] [place] [address] GFR/1.73 sq M.predicted MDRD (S/P/Bld) [Vol rate/Area] mL/min/{1.73_m2} Normal >60 [facility] Comment on above: Result Comment: Calc ulations of estimated GFR are performed using the 2020 CKD-EPI Study Refit equation without the race variable for the IDMS-Traceable creatinine methods. https://jasn.asnjournals.org/content/early//ASN.64793442 88 Performed By: #### 2 4356-8 #### MELISA Galvan (86059) [facility] () [address] [place] [address] Glucose [Mass/Vol] 107 mg/dL High 65-[address] [facility] Comment on above: Performed By: #### 2 4356-8 #### MELISA Galvan (06585) [facility] () [address] [place] [address] Potassium [Moles/Vol] 3.6 mmol/L Normal 3.4-5.1 [facility] Comment on above: Performed By: #### 2 4356-8 #### MELISA Galvan (64714) [facility] () [address] [place] [address] Sodium [Moles/Vol] 138 mmol/L Normal 133-[address] [facility] Comment on above: Performed By: #### 2 4356-8 #### MELISA Galvan (54410) [facility] () [address] [place] [address] Urea nitrogen [Mass/Vol] 10 mg/dL Normal 8-25 [facility] Comment on above: Performed By: #### 2 4356-8 #### MELISA Galvan (69844) [facility] () [address] [place] [address] CBC panel Auto (Bld)on 03-05 Erythrocyte distribution width (RBC) [Ratio] 12.6 % 11.5 - 14.5 % [facility] Hematocrit (Bld) [Volume fraction] 34.8 % Low 36.0 - 46.0 % [facility] Hemoglobin (Bld) [Mass/Vol] 11.9 g/dL Low 12.0 - 16.0 g/dL [facility] Interpretation and review of laboratory results Abnormal [facility] MCH (RBC) [Entitic mass] 31.2 pg 26.0 - 34.0 pg [facility] MCHC (RBC) [Mass/Vol] 34.2 g/dL 32.0 - 36.0 g/dL [facility] MCV (RBC) [Entitic vol] 91 fL 80 - 100 fL [facility] Nucleated RBC/100 WBC (Bld) [Ratio] 0.0 % [facility] Platelets (Bld) [#/Vol] 182 10*3/uL [facility] RBC (Bld) [#/Vol] 3.82 10*6/uL Low [facility] WBC (Bld) [#/Vol] 8.4 10*3/uL [facility] Erythrocyte distribution width (RBC) [Ratio] 12.6 % Normal 11.5-14.5 [facility] Comment on above: Performed By: #### 5 8410-2 #### MELISA Galvan (41777) [facility] () [address] [place] [address] Hematocrit (Bld) [Volume fraction] 34.8 % Low 36.0-46.0 [facility] Comment on above: Performed By: #### 5 8410-2 #### MELISA Galvan (72351) [facility] () [address] [place] [address] Hemoglobin (Bld) [Mass/Vol] 11.9 g/dL Low 12.0-16.0 [facility] Comment on above: Performed By: #### 5 8410-2 #### MELISA Galvan (96819) [facility] () [address] [place] [address] MCH (RBC) [Entitic mass] 31.2 pg Normal 26.0-34.0 [facility] Comment on above: Performed By: #### 5 8410-2 #### MELISA Galvan (21102) [facility] () [address] [place] [address] MCHC (RBC) [Mass/Vol] 34.2 g/dL Normal 32.0-36.0 [facility] Comment on above: Performed By: #### 5 8410-2 #### MELISA Galvan (35356) [facility] () [address] [place] [address] MCV (RBC) [Entitic vol] 91 fL Normal 80-100 [facility] Comment on above: Performed By: #### 5 8410-2 #### MELISA Galvan (22076) [facility] () [address] [place] [address] Nucleated RBC/100 WBC (Bld) [Ratio] 0.0 /100 WBCs Normal 0.0-0.0 [facility] Comment on above: Performed By: #### 5 8410-2 #### MELISA Galvan (55043) [facility] () [address] [place] [address] Platelets (Bld) [#/Vol] 182 x10*3/uL Normal 150-450 [facility] Comment on above: Performed By: #### 5 8410-2 #### MELISA Galvan (26394) [facility] () [address] [place] [address] RBC (Bld) [#/Vol] 3.82 x10*6/uL Low 4.00-5.20 [facility] Comment on above: Performed By: #### 5 8410-2 #### MELISA Galvan (10990) [facility] () [address] [place] [address] WBC (Bld) [#/Vol] 8.4 x10*3/uL Normal 4.4-11.3 [facility] Comment on above: Performed By: #### 5 8410-2 #### MELISA Galvan (75431) [facility] () [address] [place] [address] Glucose Test strip manual (B ld) [Mass/Vol]on 03-05-2023 Glucose [Mass/Vol] 176 mg/dL High 74 - 99 mg/dL [facility] Interpretation and review of laboratory results Abnormal [facility] Glucose [Mass/Vol] 176 mg/dL High 74-[address] [facility] Comment on above: Performed By: #### 2 4356-8 #### MELISA Galvan (00398) [facility] () [address] [place] [address] Glucose [Mass/Vol] 177 mg/dL High 74 - 99 mg/dL [facility] Interpretation and review of laboratory results Abnormal [facility] Glucose [Mass/Vol] 177 mg/dL High 74-[address] [facility] Comment on above: Performed By: #### 2 4356-8 #### MELISA Galvan (74013) [facility] () [address] [place] [address] Glucose [Mass/Vol] 111 mg/dL High 74 - 99 mg/dL [facility] Interpretation and review of laboratory results Abnormal [facility] Glucose [Mass/Vol] 111 mg/dL High 74-[address] [facility] Comment on above: Performed By: #### 2 4356-8 #### MELISA Galvan (08242) [facility] () [address] [place] [address] Magnesiumon 03-05-2023 Magnesium [Mass/Vol] 1.70 mg/dL 1.60 - 3.10 mg/dL [facility] Magnesium [Mass/Vol] 1.70 mg/dL Normal 1.60-3.10 [facility] Comment on above: Performed By: #### 2 4356-8 #### MELISA Galvan (83335) [facility] () [address] [place] [address] No Panel Informationon 03-05 Interpretation and review of laboratory results Normal [facility] Phosphateon 03-05-2023 Phosphate [Mass/Vol] 4.3 mg/dL Normal 2.5-4.5 [facility] Comment on above: Performed By: #### 2 4356-8 #### MELISA Galvan (40540) [facility] () [address] [place] [address] Phosphoruson 03-05-2023 Phosphate [Mass/Vol] 4.3 mg/dL 2.5 - 4.5 mg/dL [facility] Surgical pathology studyon 0 03-05-2023 Surgical pathology study Pathology report.total SEE COMMENT Surgical Pathology Case: [id number] Authorizing Provider: Sherry Magaña MD Collected: 03/05/2023 1125 Ordering Location: [facility] Received: 03/05/2023 1314 Center OR [...] sectioned and entirely submitted in 1 cassette. 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] VERAB/VERIFY ABORHon 01-19-2 024 ABO group Nom (Bld) O Normal [facility] Comment on above: Performed By: #### V ERAB #### MELISA Galvan ([id number]) [facility] ([facility]) [id number] [place], [place] [id number] US D Ag Ql (Bld) Positive [facility] Comment on above: Performed By: #### V ERAB #### MELISA Galvan ([id number]) [facility] ([facility]) [id number] [place], [place] [id number] XR CHEST 1 VIEWon 03-05-2023 XR CHEST 1 VIEW Interpreted By: Baldomero Hendrickson, STUDY: XR CHEST 1 VIEW; 03/05/2023 3:11 pm INDICATION: CLINICAL INFORMATION: Signs/Symptoms:NG tube placement confirmation. COMPARISON: 03/05/2019 at 745 hours ACCESSION NUMBER(S): [id number] ORDERING CLINICIAN: DESMOND TIRADO TECHNIQUE: Portable chest [...] Baldomero Hendrickson 03/05/2023 3:31 PM Dictation workstation: [id number] [facility] XR CHEST 1 VIEW Interpreted By: Nya Ahmadi, STUDY: XR CHEST 1 VIEW 03/05/2023 7:51 am INDICATION: Signs/Symptoms:conf irm line placement COMPARISON: None available. ACCESSION NUMBER(S): [id number] ORDERING CLINICIAN: SERENA GEORGE TECHNIQUE: AP erect view of the chest FINDINGS: Right arm PICC line terminates in the SVC. There is no pneumothorax. The heart, mediastinum, and lungs are normally visualized. IMPRESSION: Right arm PICC line terminating in SVC without pneumothorax. No acute cardiopulmonary disease. Signed by: Nya Ahmadi 03/05/2023 7:54 AM Dictation workstation: [id number] [facility] XR Chest Single viewon 03-05 1. Status post NG tube insertion with the tube extending into the left upper quadrant. 2. Stable appearance of the PICC line. 3. No infiltrates are identified. MACRO: none Signed by: Baldomero Hendrickson 03/05/2023 3:31 PM Dictation workstation: [id number] Interpreted By: Baldomero Hendrickson, STUDY: XR CHEST 1 VIEW; 03/05/2023 3:11 pm INDICATION: CLINICAL INFORMATION: Signs/Symptoms:NG tube placement confirmation. COMPARISON: 03/05/2019 at 745 hours ACCESSION NUMBER(S): [id number] ORDERING CLINICIAN: DESMOND TIRADO TECHNIQUE: Portable chest [...] COMPARISON: 03/05/2019 at 745 hours ACCESSION NUMBER(S): [id number] ORDERING CLINICIAN: DESMOND TIRADO TECHNIQUE: Portable chest [...] Baldomero Hendrickson 03/05/2023 3:31 PM Dictation workstation: [id number] [facility] Work Phone: Radiology Study observation (narrative) [facility] Work Phone: Right arm PICC line terminating in SVC without pneumothorax. No acute cardiopulmonary disease. Signed by: Nya Ahmadi 03/05/2023 7:54 AM Dictation workstation: [id number] MMODAL Interpreted By: Nya Ahmadi, STUDY: XR CHEST 1 VIEW 03/05/2023 7:51 am INDICATION: Signs/Symptoms:conf irm line placement COMPARISON: None available. ACCESSION NUMBER(S): [id number] ORDERING CLINICIAN: SERENA GEORGE TECHNIQUE: AP erect view of the chest FINDINGS: Right arm PICC line terminates in the SVC. There is no pneumothorax. The heart, mediastinum, and lungs are normally visualized. MMODAL Nya Ahmadi MD - 03/05/2023 Interpreted By: Nya Ahmadi, STUDY: XR CHEST 1 VIEW 03/05/2023 7:51 am INDICATION: Signs/Symptoms:conf irm line placement COMPARISON: None available. ACCESSION NUMBER(S): [id number] ORDERING CLINICIAN: SERENA GEORGE TECHNIQUE: AP erect view of the chest FINDINGS: Right arm PICC line terminates in the SVC. There is no pneumothorax. The heart, mediastinum, and lungs are normally visualized. IMPRESSION: Right arm PICC line terminating in SVC without pneumothorax. No acute cardiopulmonary disease. Signed by: Nya Ahmadi 03/05/2023 7:54 AM Dictation workstation: [id number] [facility] Work Phone: Radiology Study observation (narrative) [facility] Work Phone: XR Chest Single viewOrdered By: Baldomero Hendrickson on 03-05-2023 [facility] Work Phone: XR Chest Single viewOrdered By: Nya Ahmadi on 03-05-2023 [facility] Work Phone: Basic metabolic 2000 panelon 03-02-2023 Anion gap [Moles/Vol] 14 mmol/L Normal <=19 [facility] Comment on above: Performed By: #### 2 4321-2 #### MELISA Galvan ([id number]) [facility] () [address] [place] [address] Calcium [Mass/Vol] 9.0 mg/dL Normal 8.5-10.4 [facility] Comment on above: Performed By: #### 2 4321-2 #### MELISA Galvan ([id number]) [facility] () [address] [place] [address] Chloride [Moles/Vol] 107 mmol/L Normal 97-107 [facility] Comment on above: Performed By: #### 2 4321-2 #### MELISA Galvan ([id number]) [facility] () [address] [place] [address] CO2 [Moles/Vol] 21 mmol/L Low 24-31 [facility] Comment on above: Performed By: #### 2 432-2 #### MELISA Galvan ([id number]) [facility] () [address] [place] [address] Creatinine [Mass/Vol] 0.80 mg/dL Normal 0.40-1.60 [facility] Comment on above: Performed By: #### 2 4321-2 #### MELISA Galvan ([id number]) [facility] () [address] [place] [address] GFR/1.73 sq M.predicted MDRD (S/P/Bld) [Vol rate/Area] mL/min/{1.73_m2} Normal >60 [facility] Comment on above: Result Comment: Calc ulations of estimated GFR are performed using the 2020 CKD-EPI Study Refit equation without the race variable for the IDMS-Traceable creatinine methods. https://jasn.asnjournals.org/content///ASN.23523389 88 Performed By: #### 2 4321-2 #### MELISA Galvan ([id number]) [facility] () [address] [place] [address] Glucose [Mass/Vol] 68 mg/dL Normal 65-99 [facility] Comment on above: Performed By: #### 2 4321-2 #### MELISA Galvan ([id number]) [facility] () [address] [place] [address] Potassium [Moles/Vol] 4.0 mmol/L Normal 3.4-5.1 [facility] Comment on above: Performed By: #### 2 4321-2 #### MELISA Galvan (60486) [facility] () [address] [place] [address] Sodium [Moles/Vol] 142 mmol/L Normal 133-145 [facility] Comment on above: Performed By: #### 2 4321-2 #### MELISA Galvan ([id number]) [facility] () [address] [place] [address] Urea nitrogen [Mass/Vol] 8 mg/dL Normal 8-25 [facility] Comment on above: Performed By: #### 2 432-2 #### MELISA Galvan ([id number]) [facility] () [address] [place] [address] Blood type and Indirect anti body screen panel (Bld)on 03-02-2023 ABO group Nom (Bld) O Normal [facility] Comment on above: Performed By: #### 3 4532-2 #### MELISA Galvan ([id number]) [facility] ([facility]) [address] [place] [address] [place] Blood group antibody screen Ql Negative [facility] Comment on above: Performed By: #### 3 4532-2 #### MELISA Galvan ([id number]) [facility] ([facility]) [address] [place] [address] [place] D Ag Ql (Bld) Positive [facility] Comment on above: Performed By: #### 3 4532-2 #### MELISA Galvan ([id number]) [facility] ([facility]) [address] [place] [address] [place] Staphylococcus aureus.methic illin resistant isolateon 03-02-2023 MRSA isol Org specific cx Ql (Nose) Test: Staphylococcus aureus/MRSA colonization, Culture Specimen Source: Anterior Nares Specimen Type: Swab Specimen Date: 03/02/2023 3:17 PM Result Date: 03/04/2023 7:55 AM Result Status: Final result Abnormal: No Resulting Lab: [facility] [address] [facility] [address] CULTURE No Staphylococcus aureus isolated [facility] Comment on above: Performed By: #### 5 2969-3 #### ALON Johnson ([id number]) [facility] ([facility]) [address] [place] [address] Alanine aminotransferase [En zymatic activity/volume] in Serum or PlasmaOrdered By: Roseline Mejia on 02-13-2023 ALT [Catalytic activity/Vol] 11 U/L Normal 7-52 [facility] Comment on above: Performed By: #### H EPATIC, MG, LIPASE, CMP, CBC #### [facility] [address] [place] [address] [place] Albumin [Mass/volume] in Ser um or Plasma by Bromocresol green (BCG) dye binding methoOrdered By: Roseline Mejia on 02-13-2023 Albumin BCG dye [Mass/Vol] 4.0 g/dL 3.5-5.7 [facility] Alkaline phosphatase [Enzyma tic activity/volume] in Serum or PlasmaOrdered By: Roseline Mejia on 02-13-2023 ALP [Catalytic activity/Vol] 55 U/L Normal 34-104 [facility] Comment on above: Performed By: #### H EPATIC, MG, LIPASE, CMP, CBC #### [facility] [address] [place] [address] [place] Aspartate aminotransferase [ Enzymatic activity/volume] in Serum or PlasmaOrdered By: Roseline Mejia on 02-13-2023 AST [Catalytic activity/Vol] 20 U/L Normal 13-39 [facility] Comment on above: Performed By: #### H EPATIC, MG, LIPASE, CMP, CBC #### [address] Automated basophil %Ordered By: Roseline Mejia on 02-13-2023 Basophils/100 WBC (Bld) 1.2 % Normal . [facility] Comment on above: Performed By: #### H EPATIC, MG, LIPASE, CMP, CBC #### [address] Automated basophil countOrde red By: Roseline Mejia on 02-13-2023 Basophils (Bld) [#/Vol] 0.1 10*3/uL Normal 0.0-0.2 [facility] Comment on above: Result Comment: PERF ORMED BY: [place] [address] PATHOLOGIST FINISHING FRAME RUNNER BAUTISTA BAKER M.D. Performed By: #### H EPATIC, MG, LIPASE, CMP, CBC #### [address] Automated blood monocyte cou ntOrdered By: Roseline Mejia on 02-13-2023 Monocytes (Bld) [#/Vol] 0.3 10*3/uL Normal 0.0-0.8 [facility] Comment on above: Performed By: #### H EPATIC, MG, LIPASE, CMP, CBC #### [address] Automated eosinophil %Ordere d By: Roseline Mejia on 02-13-2023 Eosinophils/100 WBC (Bld) 1.7 % Normal . [facility] Comment on above: Performed By: #### H EPATIC, MG, LIPASE, CMP, CBC #### [address] Automated eosinophil countOr dered By: Roseline Mejia on 02-13-2023 Eosinophils (Bld) [#/Vol] 0.1 10*3/uL Normal 0.0-0.45 [facility] Comment on above: Performed By: #### H EPATIC, MG, LIPASE, CMP, CBC #### [facility] [address] Automated monocyte %Ordered By: Roseline Mejia on 02-13-2023 Monocytes/100 WBC (Bld) 7.3 % Normal . [facility] Comment on above: Performed By: #### H EPATIC, MG, LIPASE, CMP, CBC #### [facility] [address] Automated neutrophil %Ordere d By: Roseline Mejia on 02-13-2023 Neutrophils/100 WBC (Bld) 49.0 % Normal . [facility] Comment on above: Performed By: #### H EPATIC, MG, LIPASE, CMP, CBC #### [address] Automated urine color determ inationOrdered By: Roseline Mejia on 02-13-2023 Color (U) Yellow Normal Yellow [facility] Comment on above: Order Comment: Name Collection Type:: Clean-Voided Midstream Performed By: #### A DDONUAPLUS, UHCG, CUU #### [address] Basic Metabolic Panelon 01-17 Creatinine Clr Calc Pharmacy 119.02 Normal [facility] Comment on above: Performed By: #### H EPATIC, MG, LIPASE, CMP, CBC #### [address] GFR/1.73 sq M.predicted MDRD (S/P/Bld) [Vol rate/Area] mL/min/{1.73_m2} Normal [facility] Comment on above: Performed By: #### H EPATIC, MG, LIPASE, CMP, CBC #### [address] Bilirubin Test strip Ql (U)O rdered By: Roseline Mejia on 02-13-2023 Bilirubin Ql (U) Negative Negative [facility] Bilirubin.direct [Mass/volum e] in Serum or PlasmaOrdered By: Roseline Mejia on 02-13-2023 Bilirubin.direct [Mass/Vol] 0.10 mg/dL 0.03-0.18 [facility] Bilirubin.total [Mass/volume ] in Serum or PlasmaOrdered By: Roseline Mejia on 02-13-2023 Bilirubin [Mass/Vol] 0.5 mg/dL Normal 0.3-1.0 [facility] Comment on above: Performed By: #### H EPATIC, MG, LIPASE, CMP, CBC #### [facility] [address] abdomen pelvis w conon CT abdomen pelvis w con [facility] [place] [address] [place] [address] CT Scan Report Signed Patient: Abbey Garcia MR#: [id number] : 1990 Acct:[id number] Age/Sex: 32 / F ADM Date: 02/13/23 Loc: ER Room: Type: [facility] ER Attending Dr: Copies to: DO Roseline Forman DO, BRUCE Ordering Provider: Roseline Mejia DO, RES Date [...] Jason Palomo M.D.02/13/2023 3:42 PM Dictation Location: [place] [address] Transcribed By: [facility] 02/13/23 1542 Dictated By: Jason Palomo DO 02/13/23 1537 Signed By: 02/13/23 1542 Normal [facility] Calcium [Mass/volume] in Ser um or PlasmaOrdered By: Roseline Mejia on 02-13-2023 Calcium [Mass/Vol] 8.8 mg/dL Normal 8.6-10.3 [facility] Comment on above: Performed By: #### H EPATIC, MG, LIPASE, CMP, CBC #### [address] Carbon dioxide, total [Moles /volume] in Serum or PlasmaOrdered By: Roseline Mejia on 02-13-2023 CO2 [Moles/Vol] 21.2 mmol/L Normal 21.0-31.0 [facility] Comment on above: Performed By: #### H EPATIC, MG, LIPASE, CMP, CBC #### [facility] [address] [place] [address] Chloride [Moles/volume] in S elder or PlasmaOrdered By: Roseline Mejia on 02-13-2023 Chloride [Moles/Vol] 109 mmol/L High 98-107 [facility] Comment on above: Performed By: #### H EPATIC, MG, LIPASE, CMP, CBC #### [facility] [address] [place] [address] [place] Complete Blood Count Auto Di ffon 02-13-2023 Mean Corpuscular HGB Conc 34.9 g/dL Normal 32.0-35.0 [facility] Comment on above: Performed By: #### H EPATIC, MG, LIPASE, CMP, CBC #### [facility] [address] [place] [address] [place] Monocytes/100 WBC (Bld) 17.39 % Normal 0.00-20.00 [facility] Comment on above: Performed By: #### H EPATIC, MG, LIPASE, CMP, CBC #### [address] NRBC% 0.2 /100{WBC} Normal 0-0.5 [facility] Comment on above: Performed By: #### H EPATIC, MG, LIPASE, CMP, CBC #### [address] Creatinine [Mass/volume] in Serum or PlasmaOrdered By: Roseline Mejia on 02-13-2023 Creatinine [Mass/Vol] 0.73 mg/dL Normal 0.60-1.20 [facility] Comment on above: Performed By: #### H EPATIC, MG, LIPASE, CMP, CBC #### [address] Erythrocyte distribution wid th [Ratio] by Automated countOrdered By: Roseline Mejia on 02-13-2023 Erythrocyte distribution width (RBC) [Ratio] 13.0 % Normal 11.9-15.3 [facility] Comment on above: Performed By: #### H EPATIC, MG, LIPASE, CMP, CBC #### [address] Erythrocytes [#/volume] in B lood by Automated countOrdered By: Roseline Mejia on 02-13-2023 RBC (Bld) [#/Vol] 4.07 10*6/uL Normal 3.60-5.00 [facility] Comment on above: Performed By: #### H EPATIC, MG, LIPASE, CMP, CBC #### [address] Glucose [Mass/volume] in Ser um or PlasmaOrdered By: Roseline Mejia on 02-13-2023 Glucose [Mass/Vol] 85 mg/dL Normal 70-100 [facility] Comment on above: ADA recommended refe rence rangeRandom Glucose Reference Range is dependent on time and content of last meal. Glucose of more than 200 mg/dL in a nonstressed, ambulatory subject supports the diagnosis of Diabetes Mellitus. Result Comment: [facility] Glucose Reference Range is dependent on time and content of last meal. Glucose of more than 200 mg/dL in a nonstressed, ambulatory subject supports the diagnosis of Diabetes Mellitus. ADA recommended reference range Performed By: #### H EPATIC, MG, LIPASE, CMP, CBC #### [address] HCG ( test) IA.rapi d Ql (U)Ordered By: Roseline Mejia on 02-13-2023 HCG ( test) Ql (U) Negative [facility] HCG,Urineon 02-13-2023 Beta HCG ( test) Ql (U) Negative Normal [facility] Comment on above: Order Comment: Name Collection Type:: Clean-Voided Midstream Result Comment: PERF ORMED BY: [place] [address] PATHOLOGIST FINISHING FRAME RUNNER BAUTISTA BAKER M.D. Performed By: #### A DDONUAPLUS, CG, CUU #### [address] Hematocrit [Volume Fraction] of Blood by Automated countOrdered By: Roseline Mejia on 02-13-2023 Hematocrit (Bld) [Volume fraction] 36.3 % Normal 34.0-46.4 [facility] Comment on above: Performed By: #### H EPATIC, MG, LIPASE, CMP, CBC #### [address] Hemoglobin [Mass/volume] in BloodOrdered By: Roseline Mejia on 02-13-2023 Hemoglobin (Bld) [Mass/Vol] 12.7 g/dL Normal 11.8-15.4 [facility] Comment on above: Performed By: #### H EPATIC, MG, LIPASE, CMP, CBC #### [address] Hepatic Panelon 02-13-2023 Albumin [Mass/Vol] 4.0 g/dL Normal 3.5-5.7 [facility] Comment on above: Performed By: #### H EPATIC, MG, LIPASE, CMP, CBC #### [facility] [address] Bilirubin,Indirect 0.4 mg/dL Normal [facility] Comment on above: Performed By: #### H EPATIC, MG, LIPASE, CMP, CBC #### [facility] [address] Bilirubin.indirect [Mass/Vol] 0.10 mg/dL Normal 0.03-0.18 [facility] Comment on above: Performed By: #### H EPATIC, MG, LIPASE, CMP, CBC #### [facility] [address] Ketones Auto test strip (U) [Mass/Vol]Ordered By: Roseline Mejia on 02-13-2023 Ketones (U) [Mass/Vol] Trace Negative [facility] Leukocytes [#/volume] correc darvin for nucleated erythrocytes in Blood by Automated counOrdered By: Roseline Mejia on 02-13-2023 WBC corrected for nucl RBC Auto (Bld) [#/Vol] 4.2 10*3/uL 3.8-11.6 [facility] Leukocytes [#/volume] in Blo od by Automated countOrdered By: Roseline Mejia on 02-13-2023 WBC (Bld) [#/Vol] 4.2 10*3/uL Normal 3.8-11.6 [facility] Comment on above: Performed By: #### H EPATIC, MG, LIPASE, CMP, CBC #### [facility] [address] [place] [address] Lipase [Enzymatic activity/v olume] in Serum or PlasmaOrdered By: Roseline Mejia on 02-13-2023 Lipase [Catalytic activity/Vol] 42.0 U/L Normal 11.0-82.0 [facility] Comment on above: Result Comment: PERF ORMED BY: [place] [address] PATHOLOGIST FINISHING FRAME RUNNER BAUTISTA BAKER M.D. Performed By: #### H EPATIC, MG, LIPASE, CMP, CBC #### [address] Lymphocytes [#/volume] in Bl ood by Automated countOrdered By: Roseline Mejia on 02-13-2023 Lymphocytes (Bld) [#/Vol] 1.7 10*3/uL Normal 1.00-4.8 [facility] Comment on above: Performed By: #### H EPATIC, MG, LIPASE, CMP, CBC #### [address] Lymphocytes/100 leukocytes i n Blood by Automated countOrdered By: Roseline Mejia on 02-13-2023 Lymphocytes/100 WBC (Bld) 40.8 % Normal . [facility] Comment on above: Performed By: #### H EPATIC, MG, LIPASE, CMP, CBC #### [address] MCH [Entitic mass] by Automa darvin countOrdered By: Roseline Mejia on 02-13-2023 MCH (RBC) [Entitic mass] 31.1 pg Normal 24.7-34.3 [facility] Comment on above: Performed By: #### H EPATIC, MG, LIPASE, CMP, CBC #### [address] MCHC Auto (RBC) [Mass/Vol]Or dered By: Roseline Mejia on 02-13-2023 MCHC (RBC) [Mass/Vol] 34.9 g/dL 32.0-35.0 [facility] MCV [Entitic volume] by Auto mated countOrdered By: Roseline Mejia on 02-13-2023 MCV (RBC) [Entitic vol] 89.2 fL Normal 80-100 [facility] Comment on above: Performed By: #### H EPATIC, MG, LIPASE, CMP, CBC #### [address] Monocyte distribution width [Entitic volume] in Blood by AutomatedOrdered By: Roseline Mejia on 02-13-2023 Monocyte distribution width Auto (Bld) [Entitic vol] 17.39 % 0.00-20.00 [facility] Neutrophils [#/volume] in Bl ood by Automated countOrdered By: Roseline Mejia on 02-13-2023 Neutrophils (Bld) [#/Vol] 2.0 10*3/uL Normal 1.8-7.7 [facility] Comment on above: Performed By: #### H EPATIC, MG, LIPASE, CMP, CBC #### [facility] [address] Nitrite Test strip Ql (U)Ord ered By: Roseline Mejia on 02-13-2023 Nitrite Ql (U) Negative Negative [facility] No Panel InformationOrdered By: Roseline Mejia on 02-13-2023 Estimated GFR (CKD-EPI) > 60.0 mL/Min [facility] Creatinine Clearance (Chem 119.02 [facility] Nucleated erythrocytes [Pres ence] in Blood by Automated countOrdered By: Roseline Mejia on 02-13-2023 Nucleated RBC Auto Ql (Bld) 0.2 /100{WBC} 0-0.5 [facility] Platelet mean volume [Entiti c volume] in Blood by Automated countOrdered By: Roseline Mejia on 02-13-2023 Platelet mean volume (Bld) [Entitic vol] 8.8 fL Normal 6.3-10.7 [facility] Comment on above: Performed By: #### H EPATIC, MG, LIPASE, CMP, CBC #### [facility] [address] Platelets [#/volume] in Bloo d by Automated countOrdered By: Roseline Mejia on 02-13-2023 Platelets (Bld) [#/Vol] 288 10*3/uL Normal 150-450 [facility] Comment on above: Performed By: #### H EPATIC, MG, LIPASE, CMP, CBC #### [facility] [address] Potassium [Moles/volume] in Serum or PlasmaOrdered By: Roseline Mejia on 02-13-2023 Potassium [Moles/Vol] 3.7 mmol/L Normal 3.5-5.1 [facility] Comment on above: Performed By: #### H EPATIC, MG, LIPASE, CMP, CBC #### [address] Protein Auto test strip (U) [Mass/Vol]Ordered By: Roseline Mejia on 02-13-2023 Protein (U) [Mass/Vol] Negative Negative [facility] Protein [Mass/volume] in Ser um or PlasmaOrdered By: Roseline Mejia on 02-13-2023 Protein [Mass/Vol] 6.9 g/dL Normal 6.4-8.9 [facility] Comment on above: Performed By: #### H EPATIC, MG, LIPASE, CMP, CBC #### [address] Serum globulin measurement b y calculation (mass/volume)Ordered By: Roseline Mejia on 02-13-2023 Globulin (S) [Mass/Vol] 2.9 g/dL Normal [facility] Comment on above: Performed By: #### H EPATIC, MG, LIPASE, CMP, CBC #### [address] Serum or plasma albumin/glob ulin mass ratioOrdered By: Roseline Mejia on 02-13-2023 Albumin/Globulin [Mass ratio] 1.4 {ratio} [facility] Comment on above: Performed By: #### H EPATIC, MG, LIPASE, CMP, CBC #### [address] Serum or plasma anion gap de terminationOrdered By: Roseline Mejia on 02-13-2023 Anion gap [Moles/Vol] 10.5 mmol/L Normal 6.0-15.0 [facility] Comment on above: Performed By: #### H EPATIC, MG, LIPASE, CMP, CBC #### [facility] [address] [place] [address] Serum or plasma non-glucuron idated bilirubin measurement (mass/volume)Ordered By: Roseline Mejia on 02-13-2023 Bilirubin.indirect [Mass/Vol] 0.4 mg/dL [facility] Sodium [Moles/volume] in Ser um or PlasmaOrdered By: Roseline Mejia on 02-13-2023 Sodium [Moles/Vol] 137 mmol/L Normal 136-145 [facility] Comment on above: Performed By: #### H EPATIC, MG, LIPASE, CMP, CBC #### [address] Specific gravity Auto test s trip (U) [Rel density]Ordered By: Roseline Mejia on 02-13-2023 Specific gravity (U) [Rel density] 1.017 1.001-1.030 [facility] Urea nitrogen [Mass/volume] in Serum or PlasmaOrdered By: Roseline Mejia on 02-13-2023 Urea nitrogen [Mass/Vol] 10 mg/dL Normal 7-25 [facility] Comment on above: Performed By: #### H EPATIC, MG, LIPASE, CMP, CBC #### [address] Urinalysison 02-13-2023 Appearance (U) Clear Normal Clear [facility] Comment on above: Order Comment: Name Collection Type:: Clean-Voided Midstream Performed By: #### A DDONUAPLUS, UHCG, CUU #### [address] Bilirubin,Urine Negative Normal Negative [facility] Comment on above: Order Comment: Name Collection Type:: Clean-Voided Midstream Performed By: #### A DDONUAPLUS, UHCG, CUU #### [address] Glucose Ql (U) Normal Normal Normal [facility] Comment on above: Order Comment: Name Collection Type:: Clean-Voided Midstream Performed By: #### A DDONUAPLUS, UHCG, CUU #### [place] [address] [place] Ketones Ql (U) Trace High Negative [facility] Comment on above: Order Comment: Name Collection Type:: Clean-Voided Midstream Performed By: #### A DDONUAPLUS, UHCG, CUU #### [address] Leukocyte esterase Test strip Ql (U) Negative Normal Negative [facility] Comment on above: Order Comment: Name Collection Type:: Clean-Voided Midstream Performed By: #### A DDONUAPLUS, UHCG, CUU #### [place] [address] [place] Nitrite,Urine Negative Normal Negative [facility] Comment on above: Order Comment: Name Collection Type:: Clean-Voided Midstream Performed By: #### A DDONUAPLUS, UHCG, CUU #### [place] [address] [place] Occult Blood,Urine Negative Normal Negative [facility] Comment on above: Order Comment: Name Collection Type:: Clean-Voided Midstream Performed By: #### A DDONUAPLUS, UHCG, CUU #### [place] [address] [place] Protein,Urine Negative Normal Negative [facility] Comment on above: Order Comment: Name Collection Type:: Clean-Voided Midstream Performed By: #### A DDONUAPLUS, UHCG, CUU #### [place] [address] [place] Specificy [place],Urine 1.017 Normal 1.001-1.030 [facility] Comment on above: Order Comment: Name Collection Type:: Clean-Voided Midstream Performed By: #### A DDONUAPLUS, UHCG, CUU #### [place] [address] [place] Urobilinogen,Urine Normal Normal Normal [facility] Comment on above: Order Comment: Name Collection Type:: Clean-Voided Midstream Performed By: #### A CORY, [facility], [facility]U #### [facility] [address] Urine clarity by refractomet ry automatedOrdered By: Roseline Mejia on 02-13-2023 Clarity Refractometry automated (U) Clear Clear [facility] Urine glucose measurement by automated test strip (mass/volume)Ordered By: Roseline Mejia on 02-13-2023 Glucose Auto test strip (U) [Mass/Vol] Normal mg/dL Normal [facility] Urine hemoglobin detection b y automated test stripOrdered By: Roseline Mejia on 02-13-2023 Hemoglobin Auto test strip Ql (U) Negative Negative [facility] Urine leukocyte esterase det ection by automated test stripOrdered By: Roseline Mejia on 02-13-2023 Leukocyte esterase Auto test strip Ql (U) Negative Negative [facility] Urine pH measurement by auto mated test stripOrdered By: Roseline Mejia on 02-13-2023 pH (U) 5.5 [pH] Normal 5.0-9.0 [facility] Comment on above: Order Comment: Name Collection Type:: Clean-Voided Midstream Performed By: #### A CORY, [facility], CUU #### [facility] [address] [place] [address] Urobilinogen Auto test strip (U) [Mass/Vol]Ordered By: Roseline Mejia on 02-13-2023 Urobilinogen (U) [Mass/Vol] Normal mg/dL Normal [facility] CBC W Auto Differential pane l (Bld)on 02-12-2023 Basophils (Bld) [#/Vol] 0.02 x10*3/uL Normal 0.00-0.10 [facility] Comment on above: Performed By: #### 5 7021-8 #### OUMAR BRICEÑO ([id number]) [facility] ([facility]) [address] [place] [address] Basophils/100 WBC (Bld) 0.5 % Normal 0.0-2.0 [facility] Comment on above: Performed By: #### 5 7021-8 #### OUMAR BRICEÑO (33503) [facility] ([facility]) [address] [place] [address] Eosinophils (Bld) [#/Vol] 0.06 x10*3/uL Normal 0.00-0.70 [facility] Comment on above: Performed By: #### 5 7021-8 #### OUMAR BRICEÑO (72949) [facility] ([facility]) [address] [place] [address] Eosinophils/100 WBC (Bld) 1.4 % Normal 0.0-6.0 [facility] Comment on above: Performed By: #### 5 7021-8 #### OUMAR BRICEÑO (16243) [facility] ([facility]) [address] [place] [address] Erythrocyte distribution width (RBC) [Ratio] 12.1 % Normal 11.5-14.5 [facility] Comment on above: Performed By: #### 5 7021-8 #### OUMAR BRICEÑO (73025) [facility] ([facility]) [address] [place] [address] Hematocrit (Bld) [Volume fraction] 37.9 % Normal 36.0-46.0 [facility] Comment on above: Performed By: #### 5 7021-8 #### OMUAR BRICEÑO (27591) [facility] ([facility]) [address] [place] [address] Hemoglobin (Bld) [Mass/Vol] 12.8 g/dL Normal 12.0-16.0 [facility] Comment on above: Performed By: #### 5 7021-8 #### OUMAR BRICEÑO (94640) [facility] ([facility]) [address] [place] [address] Immature granulocytes (Bld) [#/Vol] 0.01 x10*3/uL Normal 0.00-0.70 [facility] Comment on above: Performed By: #### 5 7021-8 #### OUMAR BRICEÑO (67942) [facility] ([facility]) [address] [place] [address] Immature granulocytes/100 WBC (Bld) 0.2 % Normal 0.0-0.9 [facility] Comment on above: Result Comment: Janny ture Granulocyte Count (IG) includes promyelocytes, myelocytes and metamyelocytes but does not include bands. Percent differential counts (%) should be interpreted in the context of the absolute cell counts (cells/UL). Performed By: #### 5 7021-8 #### OUMAR BRICEÑO (60071) [facility] ([facility]) [address] [place] [address] Lymphocytes (Bld) [#/Vol] 1.63 x10*3/uL Normal 1.20-4.80 [facility] Comment on above: Performed By: #### 5 7021-8 #### OUMAR BRICEÑO (20152) [facility] ([facility]) [address] [place] [address]85[address] Lymphocytes/100 WBC (Bld) 38.9 % Normal 13.0-44.0 [facility] Comment on above: Performed By: #### 5 7021-8 #### OUMAR BRICEÑO (14874) [facility] ([facility]) [address] [place] [address] MCH (RBC) [Entitic mass] 30.5 pg Normal 26.0-34.0 [facility] Comment on above: Performed By: #### 5 7021-8 #### OUMAR BRICEÑO (17083) [facility] ([facility]) [address] [place] [address] MCHC (RBC) [Mass/Vol] 33.8 g/dL Normal 32.0-36.0 [facility] Comment on above: Performed By: #### 5 7021-8 #### OUMAR BRICEÑO (37486) [facility] ([facility]) [address] [place] [address] MCV (RBC) [Entitic vol] 91 fL Normal 80-100 [facility] Comment on above: Performed By: #### 5 7021-8 #### OUMAR BRICEÑO (02630) [facility] ([facility]) [address] [place] [address] Monocytes (Bld) [#/Vol] 0.26 x10*3/uL Normal 0.10-1.00 [facility] Comment on above: Performed By: #### 5 7021-8 #### OUMAR BRICEÑO (75854) [facility] ([facility]) [address] [place] [address] Monocytes/100 WBC (Bld) 6.2 % Normal 2.0-10.0 [facility] Comment on above: Performed By: #### 5 7021-8 #### OUMAR BRICEÑO (84179) [facility] ([facility]) [address] [place] [address] Neutrophils (Bld) [#/Vol] 2.21 x10*3/uL Normal 1.20-7.70 [facility] Comment on above: Result Comment: Perc ent differential counts (%) should be interpreted in the context of the absolute cell counts (cells/uL). Performed By: #### 5 7021-8 #### OUMAR BRICEÑO (32133) [facility] ([facility]) [address] [place] [address] Neutrophils/100 WBC (Bld) 52.8 % Normal 40.0-80.0 [facility] Comment on above: Performed By: #### 5 7021-8 #### OUMAR BRICEÑO (31875) [facility] ([facility]) [address] [place] [address] Nucleated RBC/100 WBC (Bld) [Ratio] 0.0 /100 WBCs Normal 0.0-0.0 [facility] Comment on above: Performed By: #### 5 7021-8 #### OUMAR BRICEÑO (87856) [facility] ([facility]) [address] [place] [address] Platelets (Bld) [#/Vol] 291 x10*3/uL Normal 150-450 [facility] Comment on above: Performed By: #### 5 7021-8 #### OUMAR BRICEÑO (67544) [facility] ([facility]) [address] [place] [address] RBC (Bld) [#/Vol] 4.19 x10*6/uL Normal 4.00-5.20 [facility] Comment on above: Performed By: #### 5 7021-8 #### OUMAR BRICEÑO (51137) [facility] ([facility]) [address] [place] [address] WBC (Bld) [#/Vol] 4.2 x10*3/uL Low 4.4-11.3 [facility] Comment on above: Performed By: #### 5 7021-8 #### OUMAR BRICEÑO (82886) [facility] ([facility]) [address] [place] [address] 13572 Comprehensive metabolic 2000 panelon 02-12-2023 Albumin BCP dye [Mass/Vol] 4.2 g/dL Normal 3.4-5.0 [facility] Comment on above: Performed By: #### 2 4323-8 #### OUMAR BRICEÑO (97036) [facility] ([facility]) [address] [place] [address] ALP [Catalytic activity/Vol] 55 U/L Normal 33-110 [facility] Comment on above: Performed By: #### 2 4323-8 #### OUMAR BRICEÑO (15147) [facility] ([facility]) [address] [place] [address] ALT With P-5'-P [Catalytic activity/Vol] 13 U/L Normal 7-45 [facility] Comment on above: Result Comment: Umm ents treated with Sulfasalazine may generate falsely decreased results for ALT. Performed By: #### 2 4323-8 #### OUMAR BRICEÑO (71675) [facility] ([facility]) [address] [place] [address] Anion gap [Moles/Vol] 13 mmol/L Normal 10-20 [facility] Comment on above: Performed By: #### 2 4323-8 #### OUMAR BRICEÑO (27506) [facility] ([facility]) [address] [place] [address] AST With P-5'-P [Catalytic activity/Vol] 21 U/L Normal 9-39 [facility] Comment on above: Performed By: #### 2 4323-8 #### OUMAR BRICEÑO (95718) [facility] ([facility]) [address] [place] [address] Bilirubin [Mass/Vol] 0.5 mg/dL Normal 0.0-1.2 [facility] Comment on above: Performed By: #### 2 4323-8 #### OUMAR BRICEÑO (49645) [facility] ([facility]) [address] [place] [address] Calcium [Mass/Vol] 8.9 mg/dL Normal 8.6-10.3 [facility] Comment on above: Performed By: #### 2 4323-8 #### OUMAR BRICEÑO (90410) [facility] ([facility]) [address] [place] [address] Chloride [Moles/Vol] 107 mmol/L Normal 98-107 [facility] Comment on above: Performed By: #### 2 4323-8 #### OUMAR BRICEÑO (67443) [facility] ([facility]) [address] [place] [address] CO2 [Moles/Vol] 23 mmol/L Normal 21-32 [facility] Comment on above: Performed By: #### 2 4323-8 #### OUMAR BRICEÑO (09353) [facility] ([facility]) [address] [place] [address] Creatinine [Mass/Vol] 0.73 mg/dL Normal 0.50-1.05 [facility] Comment on above: Performed By: #### 2 4323-8 #### OUMAR BRICEÑO (93735) [facility] ([facility]) [address] [place] [address] GFR/1.73 sq M.predicted MDRD (S/P/Bld) [Vol rate/Area] mL/min/{1.73_m2} Normal >60 [facility] Comment on above: Result Comment: Calc ulations of estimated GFR are performed using the 2020 CKD-EPI Study Refit equation without the race variable for the IDMS-Traceable creatinine methods. https://jasn.asnjournals.org/content//ASN.83323049 88 Performed By: #### 2 4323-8 #### OUMAR BRICEÑO (71828) [facility] ([facility]) [address] [place] [address] Glucose [Mass/Vol] 84 mg/dL Normal 74-99 [facility] Comment on above: Performed By: #### 2 4323-8 #### OUMAR BRICEÑO (10745) [facility] ([facility]) [address] [place] [address] Potassium [Moles/Vol] 3.6 mmol/L Normal 3.5-5.3 [facility] Comment on above: Performed By: #### 2 4323-8 #### OUMAR BRICEÑO (22573) [facility] ([facility]) [address] [place] [address] Protein [Mass/Vol] 7.0 g/dL Normal 6.4-8.2 [facility] Comment on above: Performed By: #### 2 4323-8 #### OUMAR BRICEÑO (72786) [facility] ([facility]) [address] [place] [address] Sodium [Moles/Vol] 139 mmol/L Normal 136-145 [facility] Comment on above: Performed By: #### 2 4323-8 #### OUMAR BRICEÑO (61201) [facility] ([facility]) [address] [place] [address] Urea nitrogen [Mass/Vol] 9 mg/dL Normal 6-23 [facility] Comment on above: Performed By: #### 2 4323-8 #### OUMAR BRICEÑO (35224) [facility] ([facility]) [address] [place] [address] Lactateon 02-12-2023 Lactate [Moles/Vol] 0.6 mmol/L Normal 0.4-2.0 [facility] Comment on above: Order Comment: Venip uncture immediately after or during the administration of Metamizole may lead to falsely low results. Testing should be performed immediately prior to Metamizole dosing. Performed By: #### 2 524-7 #### OUMAR BRICEÑO (35041) [facility] ([facility]) [address] [place] [address] Triacylglycerol lipaseon Lipase [Catalytic activity/Vol] 43 U/L Normal 9-82 [facility] Comment on above: Order Comment: Venip uncture immediately after or during the administration of Metamizole may lead to falsely low results. Testing should be performed immediately prior to Metamizole dosing. Performed By: #### 3 040-3 #### OUMAR BRICEÑO (52930) [facility] ([facility]) [address] [place] [address] Urinalysis complete panel (U )on 02-12-2023 Appearance (U) Clear Normal Clear [facility] Comment on above: Performed By: #### 2 4356-8 #### OUMAR BRICEÑO (35440) [facility] ([facility]) [address] [place] [address] Bilirubin (U) [Mass/Vol] Negative Normal NEGATIVE [facility] Comment on above: Performed By: #### 2 4356-8 #### OUMAR BRICEÑO (07529) [facility] ([facility]) [address] [place] [address] Color (U) Yellow Normal Straw, Yellow [facility] Comment on above: Performed By: #### 2 4356-8 #### OUMAR BRICEÑO (58018) [facility] ([facility]) [address] [place] [address] Glucose Auto test strip (U) [Mass/Vol] Negative Normal NEGATIVE [facility] Comment on above: Performed By: #### 2 435-8 #### OUMAR BRICEÑO (77650) [facility] ([facility]) [address] [place] [address] Ketones (U) [Mass/Vol] Negative Normal NEGATIVE [facility] Comment on above: Performed By: #### 2 435-8 #### OUMAR BRICEÑO (42970) [facility] ([facility]) [address] [place] [address] Leukocyte esterase Auto test strip Ql (U) Negative Normal NEGATIVE [facility] Comment on above: Performed By: #### 2 6-8 #### OUMAR BRICEÑO (94127) [facility] ([facility]) [address] [place] [address] Nitrite Auto test strip Ql (U) Negative Normal NEGATIVE [facility] Comment on above: Performed By: #### 2 4356-8 #### OUMAR BRICEÑO (50287) [facility] ([facility]) [address] [place] [address] pH (U) 6.0 [pH] Normal 5.0, 5.5, 6.0, 6.5, 7.0, 7.5, 8.0 [facility] Comment on above: Performed By: #### 2 4356-8 #### OUMAR BRICEÑO (03277) [facility] ([facility]) [address] [place] [address] Protein (U) [Mass/Vol] Negative Normal NEGATIVE [facility] Comment on above: Performed By: #### 2 4356-8 #### OUMAR BRICEÑO (85452) [facility] ([facility]) [address] [place] [address] RBC (U) [#/Vol] Negative Normal NEGATIVE [facility] Comment on above: Performed By: #### 2 4356-8 #### OUMAR BRICEÑO (29568) [facility] ([facility]) [address] [place] [address] Specific gravity (U) [Rel density] 1.021 Normal 1.005-1.035 [facility] Comment on above: Performed By: #### 2 4356-8 #### OUMAR BRICEÑO (62687) [facility] ([facility]) [address] [place] [address] Urobilinogen (U) [Mass/Vol] mg/dL Normal <2.0 [facility] Comment on above: Performed By: #### 2 4356-8 #### OUMAR BRICEÑO (96186) [facility] ([facility]) [address] [place] [address] CNPNon 02-11-2023 CNPN Normal [facility] HISTORY PHYSICALon HISTORY PHYSICAL HNO ID: [id number] Author: Vic Ramos MD Service: Pain Management [...] DATE: February 10, 2023 TIME: 2:00 PM [facility] HISTORY PHYSICAL HNO ID: [id number] Author: Anam Carter APRN.RADIOCOMMUNICATIONS TECHNICIAN Service: General Internal Medicine Author Type: Nurse Practitioner Type: HANDP Filed: 02/10/2023 2:04 PM Note Text: Abbey Garcia returns to [facility] for the treatment of [...] syndrome Plan: Block celiac plexus Anam Carter APRN.RADIOCOMMUNICATIONS TECHNICIAN [facility] OPERATIVE NOon 02-10-2023 OPERATIVE NO HNO ID: [id number] Author: Vic Ramos MD Service: Pain Management Author Type: Anesthesiologist Type: Operative Report Filed: 02/10/2023 2:41 PM Note Text: [facility] Pre-Procedure Note Patient Name: Abbey Garcia SUBJECTIVE: Abbey Garcia is a 32 year old female who presents to [facility]. This is her 1st. Patient denies any contraindications to the procedure including . 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 OBJECTIVE: BP 121/74 Pulse [...] procedure. Vic Ramos MD February 10, 2023 [facility] Post-Procedure [...] February 10, 2023 day of surgery Normal [facility] Family Medicine Office/Clini c Noteon 02-03-2023 Family Medicine Office/Clinic Note Normal [facility] Comment on above: Result Comment: Elec tronically Signed By: Jaquan Paula\.rene\Date and Time Signed: 02/03/23 15:18 EST CNPNon 01-15-2023 CNPN Normal [facility] VASC US MESENTERIC ARTERY DU PLEX COMPLETEon 01-14-2023 [facility] US MESENTERIC ARTERY DUPLEX COMPLETE [facility] [address] [place], [place] [id number] Vascular Lab Report [facility] US MESENTERIC ARTERY DUPLEX COMPLETE Patient Name: ABBEY PHIPPS Reading Physician: [id number] Kwan MD Study Date: 01/14/2023 Ordering Provider: [id number] SHERRY Sandra GÓMEZ MRN/PID: [id number] Fellow: Technologist: Anam Mc RVT Date of /Age: 1 1990 years Technologist 2: Gender: F Admission Status: Outpatient Location Performed: [facility] 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 History of gastric [...] PSV 116 cm/s Splenic PSV 77 cm/s [address]249 Jaquelin Boggs MD, DORA Final Normal [facility] CBC W Auto Differential pane l (Bld)on 01-13-2023 Basophils (Bld) [#/Vol] 0.04 x10*3/uL Normal 0.00-0.10 [facility] Comment on above: Performed By: #### 5 7021-8 #### MELISA Galvan ([id number]) [facility] () [address] [place] [address] Basophils/100 WBC (Bld) 0.7 % Normal 0.0-2.0 [facility] Comment on above: Performed By: #### 5 7021-8 #### MELISA Galvan (93147) [facility] () [address] [place] [address] Eosinophils (Bld) [#/Vol] 0.13 x10*3/uL Normal 0.00-0.70 [facility] Comment on above: Performed By: #### 5 7021-8 #### MELISA Galvan (51152) [facility] () [address] [place] [address] Eosinophils/100 WBC (Bld) 2.2 % Normal 0.0-6.0 [facility] Comment on above: Performed By: #### 5 7021-8 #### MELISA Galvan (46268) [facility] () [address] [place] [address] Erythrocyte distribution width (RBC) [Ratio] 12.4 % Normal 11.5-14.5 [facility] Comment on above: Performed By: #### 5 7021-8 #### MELISA Galvan (54598) [facility] () [address] [place] [address] Hematocrit (Bld) [Volume fraction] 36.6 % Normal 36.0-46.0 [facility] Comment on above: Performed By: #### 5 7021-8 #### MELISA Galvan (42653) [facility] () [address] [place] [address] Hemoglobin (Bld) [Mass/Vol] 12.6 g/dL Normal 12.0-16.0 [facility] Comment on above: Performed By: #### 5 7021-8 #### MELISA Galvan (53979) [facility] () [address] [place] [address] Immature granulocytes (Bld) [#/Vol] 0.01 x10*3/uL Normal 0.00-0.70 [facility] Comment on above: Performed By: #### 5 7021-8 #### MELISA Galvan (43082) [facility] () [address] [place] [address] Immature granulocytes/100 WBC (Bld) 0.2 % Normal 0.0-0.9 [facility] Comment on above: Result Comment: Janny ture Granulocyte Count (IG) includes promyelocytes, myelocytes and metamyelocytes but does not include bands. Percent differential counts (%) should be interpreted in the context of the absolute cell counts (cells/UL). Performed By: #### 5 7021-8 #### MELISA Galvan (99208) [facility] () [address] [place] [address] Lymphocytes (Bld) [#/Vol] 2.26 x10*3/uL Normal 1.20-4.80 [facility] Comment on above: Performed By: #### 5 7021-8 #### MELISA Galvan (89608) [facility] () [address] [place] [address] Lymphocytes/100 WBC (Bld) 39.0 % Normal 13.0-44.0 [facility] Comment on above: Performed By: #### 5 7021-8 #### MELISA Galvan (36152) [facility] () [address] [place] [address] MCH (RBC) [Entitic mass] 30.7 pg Normal 26.0-34.0 [facility] Comment on above: Performed By: #### 5 7021-8 #### MELISA Galvan (42128) [facility] () [address] [place] [address] MCHC (RBC) [Mass/Vol] 34.4 g/dL Normal 32.0-36.0 [facility] Comment on above: Performed By: #### 5 7021-8 #### MELISA Galvan (27312) [facility] () [address] [place] [address] MCV (RBC) [Entitic vol] 89 fL Normal 80-100 [facility] Comment on above: Performed By: #### 5 7021-8 #### MELISA Galvan (39573) [facility] () [address] [place] [address] Monocytes (Bld) [#/Vol] 0.41 x10*3/uL Normal 0.10-1.00 [facility] Comment on above: Performed By: #### 5 7021-8 #### MELISA Galvan (80545) [facility] () [address] [place] [address] Monocytes/100 WBC (Bld) 7.1 % Normal 2.0-10.0 [facility] Comment on above: Performed By: #### 5 7021-8 #### MELISA Galvan (80463) [facility] () [address] [place] [address] Neutrophils (Bld) [#/Vol] 2.95 x10*3/uL Normal 1.20-7.70 [facility] Comment on above: Result Comment: Perc ent differential counts (%) should be interpreted in the context of the absolute cell counts (cells/uL). Performed By: #### 5 7021-8 #### MELISA Galvan ([id number]) [facility] () [address] [place] [address] Neutrophils/100 WBC (Bld) 50.8 % Normal 40.0-80.0 [facility] Comment on above: Performed By: #### 5 7021-8 #### MELISA Galvan ([id number]) [facility] () [address] [place] [address] Nucleated RBC/100 WBC (Bld) [Ratio] 0.0 /100 WBCs Normal 0.0-0.0 [facility] Comment on above: Performed By: #### 5 7021-8 #### MELISA Galvan (58577) [facility] () [address] [place] [address] Platelets (Bld) [#/Vol] 222 x10*3/uL Normal 150-450 [facility] Comment on above: Performed By: #### 5 7021-8 #### MELISA Galvan ([id number]) [facility] () [address] [place] [address] RBC (Bld) [#/Vol] 4.11 x10*6/uL Normal 4.00-5.20 [facility] Comment on above: Performed By: #### 5 7021-8 #### MELISA Galvan (60215) [facility] () [address] [place] [address] WBC (Bld) [#/Vol] 5.8 x10*3/uL Normal 4.4-11.3 [facility] Comment on above: Performed By: #### 5 7021-8 #### MELISA Galvan (44281) [facility] () [address] [place] [address] Comprehensive metabolic 2000 panelon 01-13-2023 Albumin [Mass/Vol] 4.2 g/dL Normal 3.5-5.[address] [facility] Comment on above: Performed By: #### 2 4323-8 #### MELISA Galvan (92422) [facility] () [address] [place] [address] ALP (Bld) [Catalytic activity/Vol] 74 U/L Normal 35-125 [facility] Comment on above: Performed By: #### 2 4323-8 #### MELISA Galvan ([id number]) [facility] () [address] [place] [address] ALT [Catalytic activity/Vol] 15 U/L Normal 5-40 [facility] Comment on above: Performed By: #### 2 4323-8 #### MELISA Galvan (53773) [facility] () [address] [place] [address] Anion gap [Moles/Vol] 10 mmol/L Normal <=19 [facility] Comment on above: Performed By: #### 2 4323-8 #### MELISA Galvan (33312) [facility] () [address] [place] [address] AST [Catalytic activity/Vol] 26 U/L Normal 5-40 [facility] Comment on above: Performed By: #### 2 4323-8 #### MELISA Galvan (85899) [facility] () [address] [place] [address] Bilirubin [Mass/Vol] 0.5 mg/dL Normal 0.1-1.2 [facility] Comment on above: Performed By: #### 2 4323-8 #### MELISA Galvan (86067) [facility] () [address] [place] [address] Calcium [Mass/Vol] 9.1 mg/dL Normal 8.5-10.[address] [facility] Comment on above: Performed By: #### 2 4323-8 #### MELISA Galvan (56152) [facility] () [address] [place] [address] Chloride [Moles/Vol] 103 mmol/L Normal 97-107 [facility] Comment on above: Performed By: #### 2 4323-8 #### MELISA Galvan (15445) [facility] () [address] [place] [address] CO2 [Moles/Vol] 23 mmol/L Low 24-31 [facility] Comment on above: Performed By: #### 2 4323-8 #### MELISA Galvan (38729) [facility] () [address] [place] [address] Creatinine [Mass/Vol] 0.70 mg/dL Normal 0.40-1.60 [facility] Comment on above: Performed By: #### 2 4323-8 #### MELISA Galvan (26635) [facility] () [address] [place] [address] GFR/1.73 sq M.predicted MDRD (S/P/Bld) [Vol rate/Area] mL/min/{1.73_m2} Normal >60 [facility] Comment on above: Result Comment: Calc ulations of estimated GFR are performed using the 2020 CKD-EPI Study Refit equation without the race variable for the IDMS-Traceable creatinine methods. https://jasn.asnjournals.org/content/early//ASN.98175269 88 Performed By: #### 2 4323-8 #### MELISA Galvan (29862) [facility] () [address] [place] [address] Glucose [Mass/Vol] 89 mg/dL Normal 65-[address] [facility] Comment on above: Performed By: #### 2 4323-8 #### MELISA Galvan (00220) [facility] () [address] [place] [address] Potassium [Moles/Vol] 3.5 mmol/L Normal 3.4-5.1 [facility] Comment on above: Performed By: #### 2 4323-8 #### MELISA Galvan (85284) [facility] () [address] [place] [address] Protein [Mass/Vol] 6.9 g/dL Normal 5.9-7.[address] [facility] Comment on above: Performed By: #### 2 4323-8 #### MELISA Galvan (31874) [facility] () [address] [place] [address] Sodium [Moles/Vol] 136 mmol/L Normal 133-[address] [facility] Comment on above: Performed By: #### 2 4323-8 #### MELISA Galvan () [facility] () [address] [place] [address] Urea nitrogen [Mass/Vol] 13 mg/dL Normal 10-09 [facility] Comment on above: Performed By: #### 2 4323-8 #### MELISA Galvan () [facility] () [address] [place] [address] HCG ( test) IA.rapi d Ql (U)on 01-13-2023 HCG ( test) Ql (U) Negative Normal NEGATIVE [facility] Comment on above: Performed By: #### 8 0384-1 #### MELISA Galvan () [facility] () [address] [place] [address] Urinalysis complete panel (U )on 01-13-2023 Appearance (U) Clear Normal Clear [facility] Comment on above: Performed By: #### 2 4356-8 #### MELISA Galvan () [facility] () [address] [place] [address] Bilirubin (U) [Mass/Vol] Negative Normal NEGATIVE [facility] Comment on above: Performed By: #### 2 4356-8 #### MELISA Galvan () [facility] () [address] [place] [address] Color (U) Light-Yellow Normal Light-Yellow, Yellow, Dark-Yellow [facility] Comment on above: Performed By: #### 2 4356-8 #### MELISA Galvan () [facility] () [address] [place] [address] Glucose Auto test strip (U) [Mass/Vol] Normal Normal Normal [facility] Comment on above: Performed By: #### 2 4356-8 #### MELISA Galvan () [facility] () [address] [place] [address] Ketones (U) [Mass/Vol] Negative Normal NEGATIVE [facility] Comment on above: Performed By: #### 2 4356-8 #### MELISA Galvan (41916) [facility] () [address] [place] [address] Leukocyte esterase Auto test strip Ql (U) Negative Normal NEGATIVE [facility] Comment on above: Performed By: #### 2 4356-8 #### MELISA Galvan (98007) [facility] () [address] [place] [address] Nitrite Auto test strip Ql (U) Negative Normal NEGATIVE [facility] Comment on above: Performed By: #### 2 4356-8 #### MELISA Galvan (27654) [facility] () [address] [place] [address] pH (U) 7.0 [pH] Normal 5.0, 5.5, 6.0, 6.5, 7.0, 7.5, 8.0 [facility] Comment on above: Performed By: #### 2 4356-8 #### MELISA Galvan (05074) [facility] () [address] [place] [address] Protein (U) [Mass/Vol] Negative Normal NEGATIVE, 10 (TRACE), 20 (TRACE) [facility] Comment on above: Performed By: #### 2 4356-8 #### MELISA Galvan (23564) [facility] () [address] [place] [address] RBC (U) [#/Vol] Negative Normal NEGATIVE [facility] Comment on above: Performed By: #### 2 4356-8 #### MELISA Galvan (47806) [facility] () [address] [place] [address] Specific gravity (U) [Rel density] 1.010 Normal 1.005-1.035 [facility] Comment on above: Performed By: #### 2 4356-8 #### MELISA Galvan (45464) [facility] () [address] [place] [address] Urobilinogen (U) [Mass/Vol] Normal Normal Normal [facility] Comment on above: Performed By: #### 2 4356-8 #### MELISA Galvan (75485) [facility] () [address] [place] [address] CNPNon 01-11-2023 CNPN Normal [facility] CNPNon 01-06-2023 CNPN Normal [facility] Auto Diffon 12-31-2022 Basophils/100 WBC (Bld) 0.6 % Normal 0.0-2.0 [facility] Comment on above: Order Comment: Order Added by Discern Expert. Performed By: #### 2 484296, 7026880, 05315495, 1993944, 6319865, 76186598, 3044325 ####[address] [address] Basophils/Leukocyte s Auto (Bld) [Pure # fraction] 0.0 E9/L Normal 0.0-0.2 [facility] Comment on above: Order Comment: Order Added by Discern Expert. Performed By: #### 2 620934, 2400567, 74756385, 3678835, 8971909, 14223828, 8317412 ####[facility] [address] [place] [address] Eosinophils/100 WBC (Bld) 0.4 % Normal 0.0-8.0 [facility] Comment on above: Order Comment: Order Added by Discern Expert. Performed By: #### 2 248692, 8840743, 60750083, 6103690, 1252638, 84096357, 1437473 ####[facility] [address] [place] [address] Eosinophils/Leukocy stevan Auto (Bld) [Pure # fraction] 0.0 E9/L Normal 0.0-0.5 [facility] Comment on above: Order Comment: Order Added by Discern Expert. Performed By: #### 2 253749, 3328255, 65033147, 3809807, 0942337, 61277214, 6898411 ####[address] [place] [address] Lymphocytes/100 WBC (Bld) 42.3 % Normal 14.0-50.0 [facility] Comment on above: Order Comment: Order Added by Discern Expert. Performed By: #### 2 578765, 9374216, 24548733, 9257347, 0194840, 43344676, 4332106 ####[address] [place] [address] Lymphocytes/Leukocy stevan Auto (Bld) [Pure # fraction] 1.9 E9/L Normal 1.0-4.0 [facility] Comment on above: Order Comment: Order Added by Discern Expert. Performed By: #### 2 512519, 1177131, 82306134, 1064844, 4459993, 77236350, 3612297 ####[address] [address] Monocytes/100 WBC (Bld) 7.9 % Normal 4.0-14.0 [facility] Comment on above: Order Comment: Order Added by Discern Expert. Performed By: #### 2 612889, 4661297, 94613585, 0368394, 2639767, 11385227, 8305615 ####[address] [address] Monocytes/Leukocyte s Auto (Bld) [Pure # fraction] 0.4 E9/L Normal 0.2-1.0 [facility] Comment on above: Order Comment: Order Added by Discern Expert. Performed By: #### 2 334972, 0288658, 48024765, 3653310, 7004450, 73665105, 0162002 ####[address] [address] Neutrophils/100 WBC (Bld) 48.8 % Normal 36.0-75.0 [facility] Comment on above: Order Comment: Order Added by Discern Expert. Performed By: #### 2 611616, 8186255, 70641260, 7595449, 4966067, 17520243, 2978435 ####[facility] [address] [place] [address] Neutrophils/Leukocy stevan Auto (Bld) [Pure # fraction] 2.2 E9/L Normal 2.0-7.5 [facility] Comment on above: Order Comment: Order Added by Discern Expert. Performed By: #### 2 603922, 6045703, 14932749, 8571161, 6895380, 52294201, 7654570 ####[facility] [address] [place] [address] B hCG Qualon 12-31-2022 Beta HCG ( test) Ql Negative Normal [facility] Comment on above: Performed By: #### 2 399247, 9527467, 80894117, 1667201, 6942541, 47067193, 7600250 ####[facility] [address] [place] [address] BMPon 12-31-2022 Creatinine [Mass/Vol] 0.8 mg/dL Normal 0.5-1.3 [facility] Comment on above: Performed By: #### 2 837247, 3733270, 69040247, 1276705, 5527335, 18540160, 3952107 ####[facility] [address] [place] [address] Urea nitrogen [Mass/Vol] 16 mg/dL Normal 5-21 [facility] Comment on above: Performed By: #### 2 014058, 7701886, 07909487, 0739400, 7957070, 15798091, 2611098 ####[facility] [address] [place] [address] Urea nitrogen/Creatinine [Mass ratio] 20 No Units Normal 10-20 [facility] Comment on above: Performed By: #### 2 117432, 5072836, 65104893, 6624120, 4417178, 97618575, 2580462 ####[facility] [address] [place] [address] Anion gap [Moles/Vol] 10 mmol/L Normal 6-16 [facility] Comment on above: Performed By: #### 2 411457, 7577206, 58832294, 6690961, 3334511, 17308006, 1075996 ####[facility] [address] [place] [address] Calcium [Mass/Vol] 8.6 mg/dL Low 8.9-11.1 [facility] Comment on above: Performed By: #### 2 225114, 1040075, 58246175, 3694856, 6000330, 59106581, 4436957 ####[facility] [address] [place] [address] Chloride [Moles/Vol] 110 mmol/L Normal 101-111 [facility] Comment on above: Performed By: #### 2 940040, 4994270, 95681651, 3424614, 1398832, 99445952, 1346660 ####[facility] [address] [place] [address] CO2 [Moles/Vol] 20 mmol/L Low 21-31 [facility] Comment on above: Performed By: #### 2 381163, 8893188, 90508437, 0437763, 2892229, 48628318, 7235752 ####[facility] [address] [place] [address] Glucose [Mass/Vol] 87 mg/dL Normal 55-199 [facility] Comment on above: Result Comment: If t his glucose result represents a fasting glucose, interpretation should refer to the following reference range: 55-99 mg/dL Performed By: #### 2 061444, 8036754, 19294751, 0198417, 8635874, 63250808, 8887155 ####[facility] [address] [place] [address] Potassium [Moles/Vol] 3.2 mmol/L Low 3.5-5.3 [facility] Comment on above: Performed By: #### 2 361252, 9550801, 95081292, 3720195, 0609020, 48090308, 0555477 ####[facility] [address] [place] [address] Sodium [Moles/Vol] 137 mmol/L Normal 135-145 [facility] Comment on above: Performed By: #### 2 014411, 6020303, 18784488, 7755487, 9976162, 57493310, 8038430 ####[address] [address] CBC w/ Auto Diffon 3 Erythrocyte distribution width (RBC) [Ratio] 13.9 % Normal 10.9-14.2 [facility] Comment on above: Performed By: #### 2 480373, 9396983, 75385824, 0711853, 0082347, 61348279, 9096365 ####[address] [address] Hematocrit (Bld) [Volume fraction] 35.5 % Normal 34.0-46.0 [facility] Comment on above: Performed By: #### 2 996283, 1872114, 81420646, 9481259, 9207846, 53733569, 1946234 ####[address] [address] Hemoglobin (Bld) [Mass/Vol] 12.2 g/dL Normal 12.0-16.0 [facility] Comment on above: Performed By: #### 2 386079, 4480848, 32742832, 9544194, 3246680, 54628200, 1661411 ####[address] [place] [address] MCH (RBC) [Entitic mass] 30.8 pg Normal 27.0-34.0 [facility] Comment on above: Performed By: #### 2 879132, 4822922, 17513421, 2636461, 6840511, 75167429, 3645872 ####[address] [address] MCHC (RBC) [Mass/Vol] 34.4 g/dL Normal 31.4-36.0 [facility] Comment on above: Performed By: #### 2 915360, 4572532, 64144004, 8632103, 0680938, 78450159, 9303127 ####[facility] [address] [place] [address] MCV (RBC) [Entitic vol] 89.5 fL Normal 80.0-100.0 [facility] Comment on above: Performed By: #### 2 880206, 8742111, 89129695, 1796412, 5739383, 79740185, 9765003 ####[address] [place] [address] Platelet mean volume (Bld) [Entitic vol] 9.5 fL Normal 6.4-10.8 [facility] Comment on above: Performed By: #### 2 404815, 9663522, 97639518, 9642747, 7763854, 53739934, 9233427 ####[facility] [address] [place] [address] Platelets (Bld) [#/Vol] 177.0 E9/L Normal 150.0-500.0 [facility] Comment on above: Performed By: #### 2 722504, 4961747, 99921741, 1303087, 9614280, 12780894, 0903066 ####[facility] [address] [place] [address] RBC (Bld) [#/Vol] 4.0 E12/L Low 4.3-5.9 [facility] Comment on above: Performed By: #### 2 541393, 6584349, 41293043, 9096897, 6269603, 35429932, 1767304 ####[facility] [address] [place] [address] WBC corrected for nucl RBC Auto (Bld) [#/Vol] 4.4 E9/L Normal 4.0-11.0 [facility] Comment on above: Performed By: #### 2 721006, 9594551, 29729291, 0748991, 2583812, 18429936, 3511045 ####[facility] [address] [place] CHEMISTRYOrdered By: SYSTEM SYSTEM on 12-31-2022 Albumin [...] rate/Area] 100 mL/min/1.73 m2 Normal >=59mL/min/1.73 m2 [facility] Chem S Comment on above: Interpretive Data: C hronic kidney disease could be indicated at eGFR's of less than 60 mL/min/1.73m2. Kidney failure is indicated at less than 15 mL/min/1.73m2. Globulin (S) [Mass/Vol] 2.9 g/dL Normal 1.4 - 4.0 gm/dL [facility] Remisol Glucose [Mass/Vol] 87 mg/dL Normal 55 - 199 mg/dL [facility] Remisol Comment on above: Interpretive Data: I f this glucose result represents a fasting glucose, interpretation should refer to the following reference range: 55-99 mg/dL Lipase [Catalytic activity/Vol] 49 U/L Normal 13 - 58 unit/L [facility] Remisol Potassium [Moles/Vol] 3.2 mmol/L Low 3.5 - 5.3 mmol/L [facility] Remisol Protein [Mass/Vol] 6.8 g/dL Normal 6.0 - 7.8 gm/dL [facility] [place]isol Sodium [Moles/Vol] 137 mmol/L Normal 135 - 145 mmol/L [facility] Remisol Urea nitrogen [Mass/Vol] 16 mg/dL Normal 5 - 21 mg/dL [facility] Remisol Urea nitrogen/Creatinine [Mass ratio] 20 mg/mg Normal 10 - 20 FT Remisol Consent for Treatmenton 12-16 Consent for Treatment [id number] 34#1.00TIFF Normal [facility] Discharge Instructionson Discharge Instructions [id number] 93#1.00TIFF Normal [facility] ED Clinical Summaryon 2022 ED Clinical Summary Normal [facility] ED Note-Physicianon 01-01-20 ED Note-Physician Normal [facility] Comment on above: Result Comment: Elec tronically Signed By: Lonnie Rios PA-C\.br\Date and Time Signed: 12/31/22 19:15 EST\.br\Electronically Co-Signed By: Mateusz Garcia DO.br\Date and Time Co-Signed: 12/31/22 19:25 EST ED Patient Education Noteon 12-31-2022 ED Patient Education Note Normal [facility] ED Patient Summaryon 023 ED Patient Summary Normal [facility] HEMATOLOGYOrdered By: SYSTEM SYSTEM on 12-31-2022 [...] 89.5 fL Normal 80.0 - 100.0 fL [facility] HemeAutoSS Platelet mean volume (Bld) [Entitic vol] 9.5 fL Normal 6.4 - 10.8 fL [facility] HemeAutoSS Platelets (Bld) [#/Vol] 177.0 E9/L Normal 150.0 - 500.0 E9/L [facility] HemeAutoSS RBC (Bld) [#/Vol] 4.0 E12/L Low 4.3 - 5.9 E12/L [facility] HemeAutoSS WBC corrected for nucl RBC Auto (Bld) [#/Vol] 4.4 E9/L Normal 4.0 - 11.0 E9/L [facility] HemeAutoSS Hep Func Panelon 12-31-2022 Albumin [Mass/Vol] 3.9 g/dL Normal 3.3-5.0 [facility] Comment on above: Performed By: #### 2 581726, 4374761, 53433856, 9367757, 2960838, 89554978, 9607640 ####[facility] [address] [place] [address] Albumin/Globulin (S) [Mass conc ratio] 1.3 Normal 1.1-2.2 [facility] Comment on above: Performed By: #### 2 009836, 5373638, 81834073, 5108774, 3241567, 54381209, 5198715 ####[address] [place] [address] ALP [Catalytic activity/Vol] 51 Int._Unit/L Normal 21-98 [facility] Comment on above: Performed By: #### 2 956428, 7232179, 48960231, 6339632, 9677507, 03363831, 3396197 ####[address] [place] [address] ALT No additional P-5'-P [Catalytic activity/Vol] 21 Int._Unit/L Normal 6-46 [facility] Comment on above: Performed By: #### 2 334535, 2253898, 31196606, 4437731, 3765592, 67690955, 5391438 ####[facility] [address] [place] [address] AST [Catalytic activity/Vol] 32 Int._Unit/L Normal 5-43 [facility] Comment on above: Performed By: #### 2 409742, 1168672, 02730650, 5841293, 1434133, 99573705, 0658834 ####[facility] [address] [place] [address] Bilirubin [Mass/Vol] 0.5 mg/dL Normal 0.0-1.1 [facility] Comment on above: Performed By: #### 2 933105, 6886092, 41702781, 7086696, 3723516, 30392828, 3671724 ####[address] [address] Bilirubin.direct [Mass/Vol] 0.1 mg/dL Normal 0.1-0.4 [facility] Comment on above: Performed By: #### 2 616976, 9407879, 84589595, 0397706, 6745369, 89500124, 8760691 ####[address] [address] Bilirubin.indirect [Mass or moles/Vol] 0.4 mg/dL Normal 0.1-0.9 [facility] Comment on above: Performed By: #### 2 038704, 9229915, 57273346, 8453710, 9163783, 49650447, 5090860 ####[facility] [address] [place] [address] Globulin (S) [Mass/Vol] 2.9 g/dL Normal 1.4-4.0 [facility] Comment on above: Performed By: #### 2 395407, 3000789, 26419620, 3457463, 9649345, 24921863, 9300908 ####[facility] [address] [place] [address] Protein [Mass/Vol] 6.8 g/dL Normal 6.0-7.8 [facility] Comment on above: Performed By: #### 2 113282, 5693368, 58238895, 0668207, 2786212, 76143316, 6935170 ####[facility] [address] [place] [address] Lipase Levelon 12-31-2022 Lipase [Catalytic activity/Vol] 49 U/L Normal 13-58 [facility] Comment on above: Performed By: #### 2 635449, 9192659, 59950772, 8956880, 3998493, 29391704, 8743825 ####[facility] [address] [place] [address] SEROLOGYOrdered By: Stacia Blair on 12-31-2022 Beta HCG ( test) Ql Negative (12/31/22 1:16 PM) Normal [facility] Man Sero UA With Cult Reflexon 2022 Bilirubin Ql (U) Negative Normal Negative [facility] Comment on above: Performed By: #### 1 0696955 ####[address] [address] Clarity (U) CLEAR Normal Clear [facility] Comment on above: Performed By: #### 1 0886384 ####[address] [address] Color (U) YELLOW Normal Yellow [facility] Comment on above: Performed By: #### 1 2629958 ####[address] [address] Epithelial cells.squamous LM.HPF (Urine sed) [#/Area] 0-2 Normal 0-2 [facility] Comment on above: Performed By: #### 1 0227018 ####[address] [address] Glucose Test strip (U) [Mass/Vol] Negative Normal Negative [facility] Comment on above: Performed By: #### 1 4116705 ####[address] [address] Hemoglobin Ql (U) Negative Normal Negative [facility] Comment on above: Performed By: #### 1 2807871 ####[facility] [address] [place] [address] Ketones (U) [Mass/Vol] Negative Normal Negative [facility] Comment on above: Performed By: #### 1 8202546 ####[address] [address] [place].plasma/Lith ium.RBC (Bld) [Mass ratio] 0-3 Normal 0-3 [facility] Comment on above: Performed By: #### 1 6167403 ####[address] [address] Mucus Ql (Urine sed) TRACE Normal [facility] Comment on above: Performed By: #### 1 [id number] ####[address] [address] Nitrite Ql (U) Negative Normal Negative [facility] Comment on above: Performed By: #### 1 [id number] ####[address] [address] pH (U) 6.0 [pH] Invalid Interpretation Code 5.0-9.0 [facility] Comment on above: Performed By: #### 1 [id number] ####[address] [address] Protein (U) [Mass/Vol] Negative Normal Negative [facility] Comment on above: Performed By: #### 1 [id number] ####[address] [address] [address] Specific gravity (U) [Rel density] 1.015 Invalid Interpretation Code 1.005-1.030 [facility] Comment on above: Performed By: #### 1 [id number] ####[address] [address] Type of Urine collection method Clean Catch Normal [facility] Comment on above: Performed By: #### 1 [id number] ####[address] [address] Urobilinogen Qn (U) 0.2 {Munir'U}/dL Normal 0.0-1.0 [facility] Comment on above: Performed By: #### 1 [id number] ####[facility] [address] [place] [address] WBC Auto Ql (U) Negative Normal [facility] Comment on above: Performed By: #### 1 [id number] ####[facility] [address] [place] [address] WBC LM.HPF (Urine sed) [#/Area] 0-5 Normal 0-5 [facility] Comment on above: Performed By: #### 1 [id number] ####[facility] [address] [place] [address] URINALYSISOrdered By: Marlene Blair on 12-31-2022 Bilirubin [...] PM) Normal Negative [facility] UA Auto SS [place].plasma/Lith ium.RBC (Bld) [Mass ratio] 0-3 /HPF Normal 0-3/HPF [facility] UA Auto SS Mucus Ql (Urine sed) Trace (12/31/22 1:16 PM) Normal [facility] UA Auto SS Nitrite Ql (U) Negative (12/31/22 1:16 PM) Normal Negative [facility] UA Auto SS pH (U) 6.0 *NA* (12/31/22 1:16 PM) Invalid Interpretation Code 5.0 - 9.0 [facility] [place]A Auto SS Protein (U) [Mass/Vol] Negative (12/31/22 1:16 PM) Normal Negative [facility] UA Auto SS Specific gravity (U) [Rel density] 1.015 *NA* (12/31/22 1:16 PM) Invalid Interpretation Code 1.005 - 1.030 [facility] UA Auto SS UA Spec Desc Clean Catch (12/31/22 1:16 PM) Normal [facility] UA Auto SS Urobilinogen Qn (U) 0.7544373 {Munir'U}/dL Normal 0.0 - 1.0 EU/dL [facility] UA Auto SS WBC Auto Ql (U) Negative (12/31/22 1:16 PM) Normal Negative [facility] UA Auto SS WBC LM.HPF (Urine sed) [#/Area] 0-5 /HPF Normal 0-5/HPF [facility] UA Auto SS eGFRon 12-31-2022 GFR/1.73 sq M.predicted among non-blacks MDRD (S/P/Bld) [Vol rate/Area] 100 mL/min/1.73 m2 Normal >=59 [facility] Comment on above: Order Comment: Order added by Discern Expert. Result Comment: Accounts Specialist alejandra kidney disease could be indicated at eGFR's of less than 60 mL/min/1.73m2. Kidney failure is indicated at less than 15 mL/min/1.73m2. Performed By: #### 2 [id number], [id number], [id number], [id number], [id number], [id number], [id number] ####[facility] [address] [place] [address] [facility] Office/Clini c Noteon 12-29-2022 [facility] Office/Clinic Note Normal [facility] Comment on above: Result Comment: Elec tronically Signed By: Jaquan Paula.rene\Date and Time Signed: 12/29/22 15:35 EST Provider Letteron 12-29-2022 Provider Letter Normal [facility] CNCOon 12-28-2022 CNCO Letter Text Normal [facility] CNPNon 12-28-2022 CNPN Normal [facility] CNCOon 12-25-2022 CNCO Letter Text Normal [facility] CNPNon 12-23-2022 CNPN Normal [facility] CBC With Platelet and Differ entialon 12-14-2022 Basophils (Bld) [#/Vol] 0.0 10*3/uL Normal 0.0-0.2 [facility] Comment on above: Performed By: #### L IPAS #### [facility] [address] [place] [address] Basophils/100 WBC (Bld) 0.9 % Normal [facility] Comment on above: Performed By: #### L IPAS #### [facility] [address] [place] [address] Eosinophils (Bld) [#/Vol] 0.2 10*3/uL Normal 0.0-0.7 [facility] Comment on above: Performed By: #### L IPAS #### [facility] [address] [place] [address] Eosinophils/100 WBC (Bld) 4.0 % Normal [facility] Comment on above: Performed By: #### L IPAS #### [facility] [address] [place] [address] Erythrocyte distribution width (RBC) [Ratio] 13.2 % Normal 11.5-14.5 [facility] Comment on above: Performed By: #### L IPAS #### [facility] [address] [place] [address] Hematocrit (Bld) [Volume fraction] 36.5 % Low 37.0-47.0 [facility] Comment on above: Performed By: #### L IPAS #### [facility] [address] [place] [address] Hemoglobin (Bld) [Mass/Vol] 12.4 g/dL Normal 12.0-16.0 [facility] Comment on above: Performed By: #### L IPAS #### [facility] [address] [place] [address] Lymphocytes (Bld) [#/Vol] 1.7 10*3/uL Normal 1.0-4.8 [facility] Comment on above: Performed By: #### L IPAS #### [facility] [address] [place] [address] Lymphocytes/100 WBC (Bld) 40.7 % Normal [facility] Comment on above: Performed By: #### L IPAS #### [facility] [address] [place] [address] MCH (RBC) [Entitic mass] 31.0 pg Normal 27.0-31.3 [facility] Comment on above: Performed By: #### L IPAS #### [facility] [address] [place] [address] MCHC 34.0 % Normal 33.0-37.0 [facility] Comment on above: Performed By: #### L IPAS #### [facility] [address] [place] [address] MCV (RBC) [Entitic vol] 91.3 fL Normal 79.4-94.8 [facility] Comment on above: Performed By: #### L IPAS #### [facility] [address] [place] [address] Monocytes (Bld) [#/Vol] 0.3 10*3/uL Normal 0.2-0.8 [facility] Comment on above: Performed By: #### L IPAS #### [facility] [address] [place] [address] Monocytes/100 WBC (Bld) 7.7 % Normal [facility] Comment on above: Performed By: #### L IPAS #### [facility] [address] [place] [address] Neutrophils (Bld) [#/Vol] 2.0 10*3/uL Normal 1.4-6.5 [facility] Comment on above: Performed By: #### L IPAS #### [facility] [address] [place] [address] Neutrophils/100 WBC (Bld) 46.5 % Normal [facility] Comment on above: Performed By: #### L IPAS #### [facility] [address] [place] [address] Platelets (Bld) [#/Vol] 187 10*3/uL Normal 130-400 [facility] Comment on above: Performed By: #### L IPAS #### [facility] [address] [place] [address] RBC (Bld) [#/Vol] 4.00 10*6/uL Low 4.20-5.40 [facility] Comment on above: Performed By: #### L IPAS #### [facility] [address] [place] [address] WBC (Bld) [#/Vol] 4.3 10*3/uL Low 4.8-10.8 [facility] Comment on above: Performed By: #### L IPAS #### [facility] [address] [place] [address] CTA ABDOMEN PELVIS W WO CONT RASTon [...] Addison Lorenzo MD 12/14/22 Final result Normal [facility] Comprehensive Metabolic Pane nestor 12-14-2022 Albumin [Mass/Vol] 4.0 g/dL Normal 3.5-4.6 [facility] Comment on above: Performed By: #### L IPAS #### [facility] [address] [place] [address] ALP [Catalytic activity/Vol] 70 U/L Normal 40-130 [facility] Comment on above: Performed By: #### L IPAS #### [facility] [address] [place] [address] ALT [Catalytic activity/Vol] 20 U/L Normal 0-33 [facility] Comment on above: Performed By: #### L IPAS #### [facility] [address] [place] [address] Anion gap [Moles/Vol] 16 mmol/L Critically high 9-15 [facility] Comment on above: Performed By: #### L IPAS #### [facility] [address] [place] [address] AST [Catalytic activity/Vol] 33 U/L Normal 0-35 [facility] Comment on above: Performed By: #### L IPAS #### [facility] [address] [place] [address] Bilirubin [Mass/Vol] 0.3 mg/dL Normal 0.2-0.7 [facility] Comment on above: Performed By: #### L IPAS #### [facility] [address] [place] [address] Calcium [Mass/Vol] 8.8 mg/dL Normal 8.5-9.9 [facility] Comment on above: Performed By: #### L IPAS #### [facility] [address] [place] [address] Chloride [Moles/Vol] 107 mmol/L Normal 95-107 [facility] Comment on above: Performed By: #### L IPAS #### [facility] [address] [place] [address] CO2 [Moles/Vol] 20 mmol/L Normal 20-31 [facility] Comment on above: Performed By: #### L IPAS #### [facility] [address] [place] [address] Creatinine [Mass/Vol] 0.75 mg/dL Normal 0.50-0.90 [facility] Comment on above: Performed By: #### L IPAS #### [facility] [address] [place] [address] GFR >60.0 Normal >60 [facility] Comment on above: Result Comment: Pedi [...] secretion. Performed By: #### L IPAS #### [facility] [address] [place] [address] Globulin (S) [Mass/Vol] 2.5 g/dL Normal 2.3-3.5 [facility] Comment on above: Performed By: #### L IPAS #### [facility] [address] [place] [address] Glucose [Mass/Vol] 88 mg/dL Normal 70-99 [facility] Comment on above: Performed By: #### L IPAS #### [facility] [address] [place] [address] Potassium [Moles/Vol] 3.8 mmol/L Normal 3.4-4.9 [facility] Comment on above: Performed By: #### L IPAS #### [facility] [address] [place] [address] Protein [Mass/Vol] 6.5 g/dL Normal 6.3-8.0 [facility] Comment on above: Performed By: #### L IPAS #### [facility] [address] [place] [address] Sodium [Moles/Vol] 143 mmol/L Normal 135-144 [facility] Comment on above: Performed By: #### L IPAS #### [facility] [address] [place] [address] Urea nitrogen [Mass/Vol] 11 mg/dL Normal 6-20 [facility] Comment on above: Performed By: #### L IPAS #### [facility] [address] [place] [address] Lipaseon 12-14-2022 Lipase [Catalytic activity/Vol] 39 U/L Normal 12-95 [facility] Comment on above: Performed By: #### L IPAS #### [facility] [address] [place] [address] POCT Venouson 12-14-2022 Creatinine [Mass/Vol] 0.8 mg/dL Normal 0.6-1.2 [facility] Comment on above: Performed By: #### P GLU #### [facility] [address] [place] [address] GFR >60 Normal >60 [facility] Comment on above: Result Comment: Adán [...] secretion. Performed By: #### P GLU #### [facility] [address] [place] [address] POC Performed on SEE BELOW Normal [facility] Comment on above: Result Comment: Perf ormed on POC Performed By: #### P GLU #### [facility] [address] [place] [address] POC Sample Type KIRA Normal [facility] Comment on above: Performed By: #### P GLU #### [facility] [address] [place] [address] CNCOon 12-10-2022 CNCO Letter Text Normal [facility] ALLIED HEALTHon 12-09-2022 ALLIED HEALTH Normal [facility] CASE MANAGEMon 12-09-2022 CASE MANAGEM Normal [facility] CBC panel Auto (Bld)on 12-09 Erythrocyte distribution width (RBC) [Ratio] 13.5 % Normal 11.5-15.0 [facility] Comment on above: Order Comment: Speci men Type: BLOOD SPECIMENOrdering Facility: [facility] Address: [address] [place] [address] Performed By: #### 5 8410-2 ####[facility] LABCLIA [id number] [place] [address] [place] Hematocrit (Bld) [Volume fraction] 34.9 % Low 36.0-46.0 [facility] Comment on above: Order Comment: Speci men Type: BLOOD SPECIMENOrdering Facility: [facility] Address: [address] [place] [address] Performed By: #### 5 8410-2 ####[facility] LABCLIA [id number] [place] [address] [place] Hemoglobin (Bld) [Mass/Vol] 11.7 g/dL Normal 11.5-15.5 [facility] Comment on above: Order Comment: Speci men Type: BLOOD SPECIMENOrdering Facility: [facility] Address: [address] [place] [address] Performed By: #### 5 8410-2 ####[facility] LABIA [id number] [place] [address] [place] MCH (RBC) [Entitic mass] 31.0 pg Normal 26.0-34.0 [facility] Comment on above: Order Comment: Speci men Type: BLOOD SPECIMENOrdering Facility: [facility] Address: [address] [place] [address] Performed By: #### 5 8410-2 ####[facility] LABIA [id number] [place] [address] [place] MCHC (RBC) [Mass/Vol] 33.5 g/dL Normal 30.5-36.0 [facility] Comment on above: Order Comment: Speci men Type: BLOOD SPECIMENOrdering Facility: [facility] Address: [address] [place] [address] Performed By: #### 5 8410-2 ####[facility] LABIA [id number] [place] [address] [place] MCV (RBC) [Entitic vol] 92.3 fL Normal 80.0-100.0 [facility] Comment on above: Order Comment: Speci men Type: BLOOD SPECIMENOrdering Facility: [facility] Address: [address] [place] [address] Performed By: #### 5 8410-2 ####[facility] LABIA [id number] [place] [address] [place] Nucleated RBC (Bld) [#/Vol] 10*3/uL Normal <0.01 [facility] Comment on above: Order Comment: Speci men Type: BLOOD SPECIMENOrdering Facility: [facility] Address: [address] [place] [address] Performed By: #### 5 8410-2 ####[facility] LABCLIA [id number] [address] [address] [place] Platelet mean volume (Bld) [Entitic vol] 12.6 fL Normal 9.0-12.7 [facility] Comment on above: Order Comment: Speci men Type: BLOOD SPECIMENOrdering Facility: [facility] Address: [address] [place] [address] Performed By: #### 5 8410-2 ####[facility] LABCLIA [id number] [place] [address] [place] Platelets (Bld) [#/Vol] 172 10*3/uL Normal 150-400 [facility] Comment on above: Order Comment: Speci men Type: BLOOD SPECIMENOrdering Facility: [facility] Address: [address] [place] [address] Performed By: #### 5 8410-2 ####[facility] LABIA [id number] [place] [address] [place] RBC (Bld) [#/Vol] 3.78 10*6/uL Low 3.90-5.20 [facility] Comment on above: Order Comment: Speci men Type: BLOOD SPECIMENOrdering Facility: [facility] Address: [address] [place] [address] Performed By: #### 5 8410-2 ####[facility] LABIA [id number] [place] [address] [place] WBC (Bld) [#/Vol] 3.25 10*3/uL Low 3.70-11.00 [facility] Comment on above: Order Comment: Speci men Type: BLOOD SPECIMENOrdering Facility: [facility] Address: [address] [place] [address] Performed By: #### 5 8410-2 ####[facility] LABIA [id number] [place] [id number] [place] CNDSon 12-09-2022 CNDS Normal [facility] CNPNon 12-09-2022 CNPN Normal [facility] CONSULT PROGon 12-09-2022 CONSULT PROG Normal [facility] Comprehensive metabolic 2000 panelon 12-09-2022 Albumin [Mass/Vol] 3.6 g/dL Low 3.9-4.9 [facility] Comment on above: Order Comment: Speci men Type: BLOOD SPECIMENOrdering Facility: [facility] Address: [address] [place] [address] Performed By: #### 2 4323-8, 92314-9, 2776- ####[facility] LABCLIA [id number] [place] [address] [place] ALP [Catalytic activity/Vol] 59 U/L Normal 34-123 [facility] Comment on above: Order Comment: Speci men Type: BLOOD SPECIMENOrdering Facility: [facility] Address: [address] [place] [address] Performed By: #### 2 4323-8, , 2776-02 ####[facility] LABIA [id number] [place] [address] [place] ALT [Catalytic activity/Vol] 13 U/L Normal 7-38 [facility] Comment on above: Order Comment: Speci men Type: BLOOD SPECIMENOrdering Facility: [facility] Address: [address] [place] [address] Performed By: #### 2 4323-8, , 2776-02 ####[facility] LABIA [id number] [place] [address] [place] Anion gap [Moles/Vol] 9 mmol/L Normal 9-18 [facility] Comment on above: Order Comment: Speci men Type: BLOOD SPECIMENOrdering Facility: [facility] Address: [address] [place] [address] Performed By: #### 2 4323, , 2776-02 ####[facility] LABCLIA [id number] [address] [address] [place] AST [Catalytic activity/Vol] 22 U/L Normal 13-35 [facility] Comment on above: Order Comment: Speci men Type: BLOOD SPECIMENOrdering Facility: [facility] Address: [address] [place] [address] Performed By: #### 2 432-8, , 2776-02 ####[facility] LABCLIA [id number] [place] [address] [place] Bilirubin [Mass/Vol] 0.2 mg/dL Normal 0.2-1.3 [facility] Comment on above: Order Comment: Speci men Type: BLOOD SPECIMENOrdering Facility: [facility] Address: [address] [place] [address] Performed By: #### 2 432-8, , 2776-02 ####[facility] LABIA [id number] [place] [address] [place] Calcium [Mass/Vol] 8.7 mg/dL Normal 8.5-10.2 [facility] Comment on above: Order Comment: Speci men Type: BLOOD SPECIMENOrdering Facility: [facility] Address: [address] [place] [address] Performed By: #### 2 4323-8, , 2776-02 ####[facility] LABIA [id number] [address] [address] [place] Chloride [Moles/Vol] 108 mmol/L High 97-105 [facility] Comment on above: Order Comment: Speci men Type: BLOOD SPECIMENOrdering Facility: [facility] Address: [address] [place] [id number] Performed By: #### 2 4323-8, , 2776-02 ####[facility] LABCLIA [id number] [place] [address] [place] CO2 [Moles/Vol] 23 mmol/L Normal 22-30 [facility] Comment on above: Order Comment: Geraldo marrero Type: BLOOD SPECIMENOrdering Facility: [facility] Address: [address] [place] [address] Performed By: #### 2 4323-8, , 2776-02 ####[facility] LABCLIA [id number] [place] [address] [place] Creatinine [Mass/Vol] 0.61 mg/dL Normal 0.58-0.96 [facility] Comment on above: Order Comment: Geraldo marrero Type: BLOOD SPECIMENOrdering Facility: [facility] Address: [address] [place] [address] Performed By: #### 2 4323-8, , 2776-02 ####[facility] LABIA [id number] [place] [address] [place] Creatinine and Glomerular filtration rate.predicted panel (S/P/Bld) 121 mL/min/1.73m??? Normal >=60 [facility] Comment on above: Order Comment: Geraldo marrero Type: BLOOD SPECIMENOrdering Facility: [facility] Address: [address] [place] [address] Result Comment: Jessica mated Glomerular Filtration Rate [...] Performed By: #### 2 4323-8, , 2776-02 ####[facility] LABCLIA [id number] [place] [address] [place] Glucose [Mass/Vol] 79 mg/dL Normal 74-99 [facility] Comment on above: Order Comment: Speci men Type: BLOOD SPECIMENOrdering Facility: [facility] Address: [address] [place] [address] Result Comment: The [place] [employer] (ADA) provides guidance for cutoff [...] Standards of Medical Care in Diabetes 2016, [place] [employer]. Diabetes Care. 2016.39(Suppl 1). Performed By: #### 2 4323-8, , 2776-02 ####[facility] LABCLIA [id number] [place] [address] [place] Potassium [Moles/Vol] 4.2 mmol/L Normal 3.7-5.1 [facility] Comment on above: Order Comment: Speci men Type: BLOOD SPECIMENOrdering Facility: [facility] Address: [address] [place] [address] Performed By: #### 2 4323-8, , 2776-02 ####[facility] LABCLIA [id number] [place] [address] [place] Protein [Mass/Vol] 5.8 g/dL Low 6.3-8.0 [facility] Comment on above: Order Comment: Speci men Type: BLOOD SPECIMENOrdering Facility: [facility] Address: [address] [place] [address] Performed By: #### 2 4323-8, , 2776-02 ####[facility] LABCLIA [id number] [place] [id number] [place] Sodium [Moles/Vol] 140 mmol/L Normal 136-144 [facility] Comment on above: Order Comment: Speci men Type: BLOOD SPECIMENOrdering Facility: [facility] Address: [address] [place] [address] Performed By: #### 2 4323-8, , 2776-02 ####[facility] LABCLIA [id number] [place] [address] [place] Urea nitrogen [Mass/Vol] 16 mg/dL Normal 7-21 [facility] Comment on above: Order Comment: Speci men Type: BLOOD SPECIMENOrdering Facility: [facility] Address: [address] [place] [address] Performed By: #### 2 4323-8, , 2776-02 ####[facility] LABCLIA [id number] [place] [address] [place] Magnesium SerPl-ncon 12-09 Magnesium [Mass/Vol] 2.0 mg/dL Normal 1.7-2.3 [facility] Comment on above: Order Comment: Speci men Type: BLOOD SPECIMENOrdering Facility: [facility] Address: [address] [place] [address] Performed By: #### 2 4323-8, , 2776-02 ####[facility] LABIA [id number] [place] [id number] [place] NURSING PROGon 12-09-2022 NURSING PROG Normal [facility] PT EDon 12-09-2022 PT ED Normal [facility] Phosphate SerPl-mCncon 12-09 Phosphate [Mass/Vol] 1.8 mg/dL Low 2.7-4.8 [facility] Comment on above: Order Comment: Speci men Type: BLOOD SPECIMENOrdering Facility: [facility] Address: [address] [place] [address] Result Comment: Resu lt rechecked. Performed By: #### 2 4323-8, , 2776-02 ####[facility] LABCLIA [id number] [place] [address] [place] ALLIED HEALTHon 12-08-2022 ALLIED HEALTH Normal [facility] CBC panel Auto (Bld)on 12-08 Erythrocyte distribution width (RBC) [Ratio] 13.4 % Normal 11.5-15.0 [facility] Comment on above: Order Comment: Speci men Type: BLOOD SPECIMENOrdering Facility: [facility] Address: [address] [place] [address] Performed By: #### 5 8410-2 ####[facility] LABIA [id number] [place] [address] [place] Hematocrit (Bld) [Volume fraction] 32.5 % Low 36.0-46.0 [facility] Comment on above: Order Comment: Speci men Type: BLOOD SPECIMENOrdering Facility: [facility] Address: [address] [place] [address] Performed By: #### 5 8410-2 ####[facility] LABIA [id number] [place] [address] [place] Hemoglobin (Bld) [Mass/Vol] 11.1 g/dL Low 11.5-15.5 [facility] Comment on above: Order Comment: Speci men Type: BLOOD SPECIMENOrdering Facility: [facility] Address: [address] [place] [address] Performed By: #### 5 8410-2 ####[facility] LABCLIA [id number] [place] [address] [place] MCH (RBC) [Entitic mass] 31.2 pg Normal 26.0-34.0 [facility] Comment on above: Order Comment: Speci men Type: BLOOD SPECIMENOrdering Facility: [facility] Address: [address] [place] [address] Performed By: #### 5 8410-2 ####[facility] [facility] LABCLIA [id number] [place] [address] [place] MCHC (RBC) [Mass/Vol] 34.2 g/dL Normal 30.5-36.0 [facility] Comment on above: Order Comment: Speci men Type: BLOOD SPECIMENOrdering Facility: [facility] Address: [address] [place] [address] Performed By: #### 5 8410-2 ####[facility] LABCLIA [id number] [place] [address] [place] MCV (RBC) [Entitic vol] 91.3 fL Normal 80.0-100.0 [facility] Comment on above: Order Comment: Speci men Type: BLOOD SPECIMENOrdering Facility: [facility] Address: [address] [place] [address] Performed By: #### 5 8410-2 ####[facility] LABCLIA [id number] [place] [address] [place] Nucleated RBC (Bld) [#/Vol] 10*3/uL Normal <0.01 [facility] Comment on above: Order Comment: Speci men Type: BLOOD SPECIMENOrdering Facility: [facility] Address: [address] [place] [address] Performed By: #### 5 8410-2 ####[facility] LABCLIA [id number] [place] [address] [place] Platelet mean volume (Bld) [Entitic vol] 12.4 fL Normal 9.0-12.7 [facility] Comment on above: Order Comment: Speci men Type: BLOOD SPECIMENOrdering Facility: [facility] Address: [address] [place] [address] Performed By: #### 5 8410-2 ####[facility] LABCLIA [id number] [place] [address] [place] Platelets (Bld) [#/Vol] 161 10*3/uL Normal 150-400 [facility] Comment on above: Order Comment: Speci men Type: BLOOD SPECIMENOrdering Facility: [facility] Address: [address] [place] [address] Performed By: #### 5 8410-2 ####[facility] LABCLIA [id number] [place] [address] [place] RBC (Bld) [#/Vol] 3.56 10*6/uL Low 3.90-5.20 [facility] Comment on above: Order Comment: Speci men Type: BLOOD SPECIMENOrdering Facility: [facility] Address: [address] [place] [address] Performed By: #### 5 8410-2 ####[facility] LABCLIA [id number] [place] [address] [place] WBC (Bld) [#/Vol] 2.94 10*3/uL Low 3.70-11.00 [facility] Comment on above: Order Comment: Speci men Type: BLOOD SPECIMENOrdering Facility: [facility] Address: [address] [place] [address] Performed By: #### 5 8410-2 ####[facility] LABCLIA [id number] [place] [address] [place] CNPNon 12-08-2022 CNPN Normal [facility] CONSULT PROGon 12-08-2022 CONSULT PROG Normal [facility] Comprehensive metabolic 2000 panelon 12-08-2022 Albumin [Mass/Vol] 3.1 g/dL Low 3.9-4.9 [facility] Comment on above: Order Comment: Speci men Type: BLOOD SPECIMENOrdering Facility: [facility] Address: [address] [place] [address] Performed By: #### 2 777-1, 35947-6, 96055-3 ####[facility] LABCLIA [id number] [place] [address] [place] ALP [Catalytic activity/Vol] 57 U/L Normal 34-123 [facility] Comment on above: Order Comment: Speci men Type: BLOOD SPECIMENOrdering Facility: [facility] Address: [address] [place] [address] Performed By: #### 2 777-1, , ####[facility] LABCLIA [id number] [place] [address] [place] ALT [Catalytic activity/Vol] 16 U/L Normal 7-38 [facility] Comment on above: Order Comment: Speci men Type: BLOOD SPECIMENOrdering Facility: [facility] Address: [address] [place] [address] Performed By: #### 2 777-1, , ####[facility] LABCLIA [id number] [place] [address] [place] Anion gap [Moles/Vol] 9 mmol/L Normal 9-18 [facility] Comment on above: Order Comment: Speci men Type: BLOOD SPECIMENOrdering Facility: [facility] Address: [address] [place] [address] Performed By: #### 2 777-1, , ####[facility] LABCLIA [id number] [place] [address] [place] AST [Catalytic activity/Vol] 26 U/L Normal 13-35 [facility] Comment on above: Order Comment: Speci men Type: BLOOD SPECIMENOrdering Facility: [facility] Address: [address] [place] [address] Performed By: #### 2 777-1, , ####[facility] LABCLIA [id number] [place] [address] [place] Bilirubin [Mass/Vol] 0.2 mg/dL Normal 0.2-1.3 [facility] Comment on above: Order Comment: Speci men Type: BLOOD SPECIMENOrdering Facility: [facility] Address: [address] [place] [id number] Performed By: #### 2 777-1, , ####[facility] LABCLIA [id number] [place] [id number] [place] Calcium [Mass/Vol] 8.2 mg/dL Low 8.5-10.2 [facility] Comment on above: Order Comment: Speci men Type: BLOOD SPECIMENOrdering Facility: [facility] Address: [address] [place] [id number] Performed By: #### 2 777-1, , ####[facility] LABCLIA [id number] [place] [address] [place] Chloride [Moles/Vol] 109 mmol/L High 97-105 [facility] Comment on above: Order Comment: Speci men Type: BLOOD SPECIMENOrdering Facility: [facility] Address: [address] [place] [address] Performed By: #### 2 777-1, , ####[facility] LABCLIA [id number] [place] [address] [place] CO2 [Moles/Vol] 23 mmol/L Normal 22-30 [facility] Comment on above: Order Comment: Speci men Type: BLOOD SPECIMENOrdering Facility: [facility] Address: [address] [place] [id number] Performed By: #### 2 777-1, , ####[facility] LABCLIA [id number] [place] [id number] [place] Creatinine [Mass/Vol] 0.73 mg/dL Normal 0.58-0.96 [facility] Comment on above: Order Comment: Speci men Type: BLOOD SPECIMENOrdering Facility: [facility] Address: [address] [place] [address] Performed By: #### 2 777-1, , ####[facility] LABCLIA [id number] [place] [address] [place] Creatinine and Glomerular filtration rate.predicted panel (S/P/Bld) 112 mL/min/1.73m??? Normal >=60 [facility] Comment on above: Order Comment: Geraldo marrero Type: BLOOD SPECIMENOrdering Facility: [facility] Address: [address] [place] [address] Result Comment: Jessica mated Glomerular Filtration Rate [...] GFR. Performed By: #### 2 777-1, , ####[facility] LABCLIA [id number] [place] [address] [place] Glucose [Mass/Vol] 119 mg/dL High 74-99 [facility] Comment on above: Order Comment: Geraldo marrero Type: BLOOD SPECIMENOrdering Facility: [facility] Address: [address] [place] [address] Result Comment: The [place] [employer] (ADA) provides guidance for cutoff [...] Standards of Medical Care in Diabetes 2016, [place] [employer]. Diabetes Care. 2016.39(Suppl 1). Performed By: #### 2 777-1, 74611-3, ####[facility] LABCLIA [id number] [address] [address] [place] Potassium [Moles/Vol] 3.5 mmol/L Low 3.7-5.1 [facility] Comment on above: Order Comment: Speci men Type: BLOOD SPECIMENOrdering Facility: [facility] Address: [address] [place] [address] Performed By: #### 2 777-1, , ####[facility] LABCLIA [id number] [address] [address] [place] Protein [Mass/Vol] 5.2 g/dL Low 6.3-8.0 [facility] Comment on above: Order Comment: Speci men Type: BLOOD SPECIMENOrdering Facility: [facility] Address: [address] [place] [address] Performed By: #### 2 777-1, , ####[facility] LABIA [id number] [place] [id number] [place] Sodium [Moles/Vol] 141 mmol/L Normal 136-144 [facility] Comment on above: Order Comment: Speci men Type: BLOOD SPECIMENOrdering Facility: [facility] Address: [address] [place] [address] Performed By: #### 2 777-1, , ####[facility] LABCLIA [id number] [address] [address] [place] Urea nitrogen [Mass/Vol] 10 mg/dL Normal 7-21 [facility] Comment on above: Order Comment: Speci men Type: BLOOD SPECIMENOrdering Facility: [facility] Address: [address] [place] [address] Performed By: #### 2 777-1, , ####[facility] LABCLIA [id number] [place] [id number] [place] Magnesium SerPl-mCncon 12-08 Magnesium [Mass/Vol] 2.1 mg/dL Normal 1.7-2.3 [facility] Comment on above: Order Comment: Speci men Type: BLOOD SPECIMENOrdering Facility: [facility] Address: [address] [place] [address] Performed By: #### 2 777-1, 99012-8, 04113-0 ####[facility] LABCLIA [id number] [place] [id number] [place] Phosphate SerPl-mCncon 12-08 Phosphate [Mass/Vol] 4.7 mg/dL Normal 2.7-4.8 [facility] Comment on above: Order Comment: Speci men Type: BLOOD SPECIMENOrdering Facility: [facility] Address: [address] [place] [address] Performed By: #### 2 777-1, , ####[facility] LABCLIA [id number] [place] [address] [place] CBC panel Auto (Bld)on 12-07 Erythrocyte distribution width (RBC) [Ratio] 13.2 % Normal 11.5-15.0 [facility] Comment on above: Order Comment: Speci men Type: BLOOD SPECIMENOrdering Facility: [facility] Address: [address] [place] [address] Performed By: #### 5 8410-2 ####[facility] LABCLIA [id number] [place] [address] [place] Hematocrit (Bld) [Volume fraction] 33.9 % Low 36.0-46.0 [facility] Comment on above: Order Comment: Speci men Type: BLOOD SPECIMENOrdering Facility: [facility] Address: [address] [place] [address] Performed By: #### 5 8410-2 ####[facility] LABCLIA [id number] [place] [address] [place] Hemoglobin (Bld) [Mass/Vol] 11.6 g/dL Normal 11.5-15.5 [facility] Comment on above: Order Comment: Speci men Type: BLOOD SPECIMENOrdering Facility: [facility] Address: [address] [place] [address] Performed By: #### 5 8410-2 ####[facility] LABCLIA [id number] [place] [address] [place] MCH (RBC) [Entitic mass] 30.9 pg Normal 26.0-34.0 [facility] Comment on above: Order Comment: Speci men Type: BLOOD SPECIMENOrdering Facility: [facility] Address: [address] [place] [address] Performed By: #### 5 8410-2 ####[facility] LABCLIA [id number] [place] [address] [place] MCHC (RBC) [Mass/Vol] 34.2 g/dL Normal 30.5-36.0 [facility] Comment on above: Order Comment: Speci men Type: BLOOD SPECIMENOrdering Facility: [facility] Address: [address] [place] [address] Performed By: #### 5 8410-2 ####[facility] LABIA [id number] [place] [address] [place] MCV (RBC) [Entitic vol] 90.4 fL Normal 80.0-100.0 [facility] Comment on above: Order Comment: Speci men Type: BLOOD SPECIMENOrdering Facility: [facility] Address: [address] [place] [address] Performed By: #### 5 8410-2 ####[facility] LABCLIA [id number] [place] [address] [place] Nucleated RBC (Bld) [#/Vol] 10*3/uL Normal <0.01 [facility] Comment on above: Order Comment: Speci men Type: BLOOD SPECIMENOrdering Facility: [facility] Address: [address] [place] [address] Performed By: #### 5 8410-2 ####[facility] LABCLIA [id number] [place] [address] [place] Platelet mean volume (Bld) [Entitic vol] 12.5 fL Normal 9.0-12.7 [facility] Comment on above: Order Comment: Speci men Type: BLOOD SPECIMENOrdering Facility: [facility] Address: [address] [place] [address] Performed By: #### 5 8410-2 ####[facility] LABIA [id number] [place] [address] [place] Platelets (Bld) [#/Vol] 175 10*3/uL Normal 150-400 [facility] Comment on above: Order Comment: Speci men Type: BLOOD SPECIMENOrdering Facility: [facility] Address: [address] [place] [address] Performed By: #### 5 8410-2 ####[facility] LABIA [id number] [place] [address] [place] RBC (Bld) [#/Vol] 3.75 10*6/uL Low 3.90-5.20 [facility] Comment on above: Order Comment: Speci men Type: BLOOD SPECIMENOrdering Facility: [facility] Address: [address] [place] [address] Performed By: #### 5 8410-2 ####[facility] LABCLIA [id number] [place] [address] [place] WBC (Bld) [#/Vol] 2.61 10*3/uL Low 3.70-11.00 [facility] Comment on above: Order Comment: Speci men Type: BLOOD SPECIMENOrdering Facility: [facility] Address: [address] [place] [address] Performed By: #### 5 8410-2 ####[facility] LABCLIA [id number] [place] [address] [place] CONSULTon 12-07-2022 CONSULT Normal [facility] CONSULT PROGon 12-07-2022 CONSULT PROG Normal [facility] Comprehensive metabolic 2000 panelon 12-07-2022 Albumin [Mass/Vol] 3.4 g/dL Low 3.9-4.9 [facility] Comment on above: Order Comment: Speci men Type: BLOOD SPECIMENOrdering Facility: [facility] Address: [address] [place] [address] Performed By: #### 2 4323-8 ####[facility] LABCLIA [id number] [place] [address] [place] ALP [Catalytic activity/Vol] 62 U/L Normal 34-123 [facility] Comment on above: Order Comment: Speci men Type: BLOOD SPECIMENOrdering Facility: [facility] Address: [address] [place] [address] Performed By: #### 2 4323-8 ####[facility] LABCLIA [id number] [place] [address] [place] ALT [Catalytic activity/Vol] 19 U/L Normal 7-38 [facility] Comment on above: Order Comment: Speci men Type: BLOOD SPECIMENOrdering Facility: [facility] Address: [address] [place] [id number] Performed By: #### 2 4323-8 ####[facility] LABCLIA [id number] [place] [id number] [place] Anion gap [Moles/Vol] 9 mmol/L Normal 9-18 [facility] Comment on above: Order Comment: Speci men Type: BLOOD SPECIMENOrdering Facility: [facility] Address: [address] [place] [id number] Performed By: #### 2 4323-8 ####[facility] LABCLIA [id number] [place] [address] [place] AST [Catalytic activity/Vol] 31 U/L Normal 13-35 [facility] Comment on above: Order Comment: Speci men Type: BLOOD SPECIMENOrdering Facility: [facility] Address: [address] [place] [address] Performed By: #### 2 4323-8 ####[facility] LABCLIA [id number] [place] [address] [place] Bilirubin [Mass/Vol] 0.3 mg/dL Normal 0.2-1.3 [facility] Comment on above: Order Comment: Speci men Type: BLOOD SPECIMENOrdering Facility: [facility] Address: [address] [place] [address] Performed By: #### 2 4323-8 ####[facility] LABCLIA [id number] [place] [address] [place] Calcium [Mass/Vol] 8.6 mg/dL Normal 8.5-10.2 [facility] Comment on above: Order Comment: Speci men Type: BLOOD SPECIMENOrdering Facility: [facility] Address: [address] [place] [address] Performed By: #### 2 4323-8 ####[facility] LABCLIA [id number] [place] [address] [place] Chloride [Moles/Vol] 108 mmol/L High 97-105 [facility] Comment on above: Order Comment: Speci men Type: BLOOD SPECIMENOrdering Facility: [facility] Address: [address] [place] [address] Performed By: #### 2 4323-8 ####[facility] LABCLIA [id number] [place] [address] [place] CO2 [Moles/Vol] 22 mmol/L Normal 22-30 [facility] Comment on above: Order Comment: Speci men Type: BLOOD SPECIMENOrdering Facility: [facility] Address: [address] [place] [id number] Performed By: #### 2 4323-8 ####[facility] LABCLIA [id number] [place] [address] [place] Creatinine [Mass/Vol] 0.85 mg/dL Normal 0.58-0.96 [facility] Comment on above: Order Comment: Lyssai men Type: BLOOD SPECIMENOrdering Facility: [facility] Address: [address] [place] [address] Performed By: #### 2 4323-8 ####[facility] LABIA [id number] [place] [address] [place] Creatinine and Glomerular filtration rate.predicted panel (S/P/Bld) 93 mL/min/1.73m??? Normal >=60 [facility] Comment on above: Order Comment: Geraldo men Type: BLOOD SPECIMENOrdering Facility: [facility] Address: [address] [place] [address] Result Comment: Jessica mated Glomerular Filtration Rate [...] actual GFR. Performed By: #### 2 4323-8 ####[facility] LABIA [id number] [place] [address] [place] Glucose [Mass/Vol] 80 mg/dL Normal 74-99 [facility] Comment on above: Order Comment: Geraldo men Type: BLOOD SPECIMENOrdering Facility: [facility] Address: [address] [place] [address] Result Comment: The [place] [employer] (ADA) provides guidance for cutoff [...] Standards of Medical Care in Diabetes 2016, [place] [employer]. Diabetes Care. 2016.39(Suppl 1). Performed By: #### 2 4323-8 ####[facility] LABCLIA [id number] [place] [address] [place] Potassium [Moles/Vol] 3.7 mmol/L Normal 3.7-5.1 [facility] Comment on above: Order Comment: Speci men Type: BLOOD SPECIMENOrdering Facility: [facility] Address: [address] [place] [address] Performed By: #### 2 4323-8 ####[facility] LABCLIA [id number] [place] [address] [place] Protein [Mass/Vol] 5.5 g/dL Low 6.3-8.0 [facility] Comment on above: Order Comment: Speci men Type: BLOOD SPECIMENOrdering Facility: [facility] Address: [address] [place] [address] Performed By: #### 2 4323-8 ####[facility] LABCLIA [id number] [place] [address] [place] Sodium [Moles/Vol] 139 mmol/L Normal 136-144 [facility] Comment on above: Order Comment: Speci men Type: BLOOD SPECIMENOrdering Facility: [facility] Address: [address] [place] [address] Performed By: #### 2 4323-8 ####[facility] LABCLIA [id number] [place] [address] [place] Urea nitrogen [Mass/Vol] 12 mg/dL Normal 7-21 [facility] Comment on above: Order Comment: Speci men Type: BLOOD SPECIMENOrdering Facility: [facility] Address: [address] [place] [address] Performed By: #### 2 4323-8 ####[facility] LABCLIA [id number] [place] [address] [place] NURSING PROGon 12-07-2022 NURSING PROG Normal [facility] XR CHEST 1V PORT POST PICC - NBon 12-07-2022 XR CHEST 1V PORT POST PICC -NB Normal [facility] CASE MGT INIT ASSESon 2022 CASE MGT INIT ASSES Normal [facility] CBC W Auto Differential pane l (Bld)on 12-06-2022 Basophils (Bld) [#/Vol] 10*3/uL Normal <0.11 [facility] Comment on above: Order Comment: Speci men Type: BLOOD SPECIMENOrdering Facility: [facility] Address: [address] [place] [address] Performed By: #### 5 7021-8 ####[facility] LABCLIA [id number] [place] [address] [place] Basophils/100 WBC (Bld) 0.7 % Normal [facility] Comment on above: Order Comment: Speci men Type: BLOOD SPECIMENOrdering Facility: [facility] Address: [address] [place] [address] Performed By: #### 5 7021-8 ####[facility] LABCLIA [id number] [place] [address] [place] Differential cell count method Nom (Bld) Auto Normal [facility] Comment on above: Order Comment: Speci men Type: BLOOD SPECIMENOrdering Facility: [facility] Address: [address] [place] [address] Performed By: #### 5 7021-8 ####[facility] LABCLIA [id number] [place] [address] [place] Eosinophils (Bld) [#/Vol] 0.09 10*3/uL Normal <0.46 [facility] Comment on above: Order Comment: Speci men Type: BLOOD SPECIMENOrdering Facility: [facility] Address: [address] [place] [address] Performed By: #### 5 7021-8 ####[facility] LABCLIA [id number] [place] [address] [place] Eosinophils/100 WBC (Bld) 2.9 % Normal [facility] Comment on above: Order Comment: Speci men Type: BLOOD SPECIMENOrdering Facility: [facility] Address: [address] [place] [address] Performed By: #### 5 7021-8 ####[facility] LABCLIA [id number] [place] [address] [place] Erythrocyte distribution width (RBC) [Ratio] 13.2 % Normal 11.5-15.0 [facility] Comment on above: Order Comment: Speci men Type: BLOOD SPECIMENOrdering Facility: [facility] Address: [address] [place] [address] Performed By: #### 5 7021-8 ####[facility] LABCLIA [id number] [place] [address] [place] Hematocrit (Bld) [Volume fraction] 33.7 % Low 36.0-46.0 [facility] Comment on above: Order Comment: Speci men Type: BLOOD SPECIMENOrdering Facility: [facility] Address: [address] [place] [address] Performed By: #### 5 7021-8 ####[facility] LABCLIA [id number] [place] [address] [place] Hemoglobin (Bld) [Mass/Vol] 11.6 g/dL Normal 11.5-15.5 [facility] Comment on above: Order Comment: Speci men Type: BLOOD SPECIMENOrdering Facility: [facility] Address: [address] [place] [address] Performed By: #### 5 7021-8 ####[facility] LABCLIA [id number] [place] [address] [place] Immature granulocytes (Bld) [#/Vol] 10*3/uL Normal <0.10 [facility] Comment on above: Order Comment: Speci men Type: BLOOD SPECIMENOrdering Facility: [facility] Address: [address] [place] [address] Performed By: #### 5 7021-8 ####[facility] LABCLIA [id number] [place] [address] [place] Immature granulocytes/100 WBC (Bld) 0.3 % Normal [facility] Comment on above: Order Comment: Speci men Type: BLOOD SPECIMENOrdering Facility: [facility] Address: [address] [place] [address] Performed By: #### 5 7021-8 ####[facility] LABCLIA [id number] [place] [address] [place] Lymphocytes (Bld) [#/Vol] 1.31 10*3/uL Normal 1.00-4.00 [facility] Comment on above: Order Comment: Speci men Type: BLOOD SPECIMENOrdering Facility: [facility] Address: [address] [place] [address] Performed By: #### 5 7021-8 ####[facility] LABCLIA [id number] [place] [address] [place] Lymphocytes/100 WBC (Bld) 42.8 % Normal [facility] Comment on above: Order Comment: Speci men Type: BLOOD SPECIMENOrdering Facility: [facility] Address: [address] [place] [address] Performed By: #### 5 7021-8 ####[facility] LABCLIA [id number] [place] [address] [place] MCH (RBC) [Entitic mass] 30.8 pg Normal 26.0-34.0 [facility] Comment on above: Order Comment: Speci men Type: BLOOD SPECIMENOrdering Facility: [facility] Address: [address] [place] [address] Performed By: #### 5 7021-8 ####[facility] LABIA [id number] [place] [address] [place] MCHC (RBC) [Mass/Vol] 34.4 g/dL Normal 30.5-36.0 [facility] Comment on above: Order Comment: Speci men Type: BLOOD SPECIMENOrdering Facility: [facility] Address: [address] [place] [address] Performed By: #### 5 7021-8 ####[facility] LABIA [id number] [place] [address] [place] MCV (RBC) [Entitic vol] 89.4 fL Normal 80.0-100.0 [facility] Comment on above: Order Comment: Speci men Type: BLOOD SPECIMENOrdering Facility: [facility] Address: [address] [place] [address] Performed By: #### 5 7021-8 ####[facility] LABIA [id number] [place] [address] [place] Monocytes (Bld) [#/Vol] 0.24 10*3/uL Normal <0.87 [facility] Comment on above: Order Comment: Speci men Type: BLOOD SPECIMENOrdering Facility: [facility] Address: [address] [place] [address] Performed By: #### 5 7021-8 ####[facility] LABIA [id number] [place] [address] [place] Monocytes/100 WBC (Bld) 7.8 % Normal [facility] Comment on above: Order Comment: Speci men Type: BLOOD SPECIMENOrdering Facility: [facility] Address: [address] [place] [address] Performed By: #### 5 7021-8 ####[facility] LABCLIA [id number] [place] [address] [place] Neutrophils (Bld) [#/Vol] 1.39 10*3/uL Low 1.45-7.50 [facility] Comment on above: Order Comment: Speci men Type: BLOOD SPECIMENOrdering Facility: [facility] Address: [address] [place] [address] Performed By: #### 5 7021-8 ####[facility] LABCLIA [id number] [place] [address] [place] Neutrophils/100 WBC (Bld) 45.5 % Normal [facility] Comment on above: Order Comment: Speci men Type: BLOOD SPECIMENOrdering Facility: [facility] Address: [address] [place] [address] Performed By: #### 5 7021-8 ####[facility] LABCLIA [id number] [place] [address] [place] Nucleated RBC (Bld) [#/Vol] 10*3/uL Normal <0.01 [facility] Comment on above: Order Comment: Speci men Type: BLOOD SPECIMENOrdering Facility: [facility] Address: [address] [place] [address] Performed By: #### 5 7021-8 ####[facility] LABCLIA [id number] [place] [address] [place] Nucleated RBC/100 WBC (Bld) [Ratio] 0.0 /100 WBC Normal [facility] Comment on above: Order Comment: Speci men Type: BLOOD SPECIMENOrdering Facility: [facility] Address: [address] [place] [address] Performed By: #### 5 7021-8 ####[facility] LABCLIA [id number] [place] [address] [place] Platelet mean volume (Bld) [Entitic vol] 11.9 fL Normal 9.0-12.7 [facility] Comment on above: Order Comment: Speci men Type: BLOOD SPECIMENOrdering Facility: [facility] Address: [address] [place] [address] Performed By: #### 5 7021-8 ####[facility] LABCLIA [id number] [place] [address] [place] Platelets (Bld) [#/Vol] 163 10*3/uL Normal 150-400 [facility] Comment on above: Order Comment: Speci men Type: BLOOD SPECIMENOrdering Facility: [facility] Address: [address] [place] [address] Performed By: #### 5 7021-8 ####[facility] LABIA [id number] [place] [address] [place] RBC (Bld) [#/Vol] 3.77 10*6/uL Low 3.90-5.20 [facility] Comment on above: Order Comment: Speci men Type: BLOOD SPECIMENOrdering Facility: [facility] Address: [address] [place] [address] Performed By: #### 5 7021-8 ####[facility] LABIA [id number] [place] [address] [place] WBC (Bld) [#/Vol] 3.06 10*3/uL Low 3.70-11.00 [facility] Comment on above: Order Comment: Speci men Type: BLOOD SPECIMENOrdering Facility: [facility] Address: [address] [place] [address] Performed By: #### 5 7021-8 ####[facility] LABCLIA [id number] [place] [address] [place] CTA ABD/PELV W IVCONon 12-06 CTA ABD/PELV W IVCON Normal [facility] Comprehensive metabolic 2000 panelon 12-06-2022 Albumin [Mass/Vol] 3.6 g/dL Low 3.9-4.9 [facility] Comment on above: Order Comment: Speci men Type: BLOOD SPECIMENOrdering Facility: [facility] Address: [address] [place] [address] Performed By: #### 2 4323-8, 3040-3, , 2776-02 ####[facility] LABCLIA [id number] [place] [address] [place] ALP [Catalytic activity/Vol] 61 U/L Normal 34-123 [facility] Comment on above: Order Comment: Speci men Type: BLOOD SPECIMENOrdering Facility: [facility] Address: [address] [place] [address] Performed By: #### 2 4323-8, 0-3, , 2776-02 ####[facility] LABCLIA [id number] [place] [address] [place] ALT [Catalytic activity/Vol] 16 U/L Normal 7-38 [facility] Comment on above: Order Comment: Speci men Type: BLOOD SPECIMENOrdering Facility: [facility] Address: [address] [place] [address] Performed By: #### 2 4323-8, 0-3, , 2776-02 ####[facility] LABCLIA [id number] [place] [address] [place] Anion gap [Moles/Vol] 10 mmol/L Normal 9-18 [facility] Comment on above: Order Comment: Speci men Type: BLOOD SPECIMENOrdering Facility: [facility] Address: [address] [place] [address] Performed By: #### 2 4323-8, 0-3, , 2776-02 ####[facility] LABCLIA [id number] [address] [address] [place] AST [Catalytic activity/Vol] 29 U/L Normal 13-35 [facility] Comment on above: Order Comment: Speci men Type: BLOOD SPECIMENOrdering Facility: [facility] Address: [address] [place] [address] Performed By: #### 2 4323-8, 0-3, , 2776-02 ####[facility] LABCLIA [id number] [place] [address] [place] Bilirubin [Mass/Vol] 0.2 mg/dL Normal 0.2-1.3 [facility] Comment on above: Order Comment: Speci men Type: BLOOD SPECIMENOrdering Facility: [facility] Address: [address] [place] [address] Performed By: #### 2 4323-8, 0-3, , 2776-02 ####[facility] LABCLIA [id number] [place] [address] [place] Calcium [Mass/Vol] 8.2 mg/dL Low 8.5-10.2 [facility] Comment on above: Order Comment: Speci men Type: BLOOD SPECIMENOrdering Facility: [facility] Address: [address] [place] [address] Performed By: #### 2 4323-8, 3039-3, , 2776-02 ####[facility] LABIA [id number] [place] [address] [place] Chloride [Moles/Vol] 109 mmol/L High 97-105 [facility] Comment on above: Order Comment: Speci men Type: BLOOD SPECIMENOrdering Facility: [facility] Address: [address] [place] [address] Performed By: #### 2 4323-8, 3039-3, , 2776-02 ####[facility] LABCLIA [id number] [place] [id number] [place] CO2 [Moles/Vol] 21 mmol/L Low 22-30 [facility] Comment on above: Order Comment: Speci men Type: BLOOD SPECIMENOrdering Facility: [facility] Address: [address] [place] [address] Performed By: #### 2 4323-8, 3040-3, , 2776-02 ####[facility] LABCLIA [id number] [place] [id number] [place] Creatinine [Mass/Vol] 0.66 mg/dL Normal 0.58-0.96 [facility] Comment on above: Order Comment: Speci men Type: BLOOD SPECIMENOrdering Facility: [facility] Address: [address] [place] [address] Performed By: #### 2 4323-8, 0-3, , 2776-02 ####[facility] LABCLIA [id number] [place] [address] [place] Creatinine and Glomerular filtration rate.predicted panel (S/P/Bld) 119 mL/min/1.73m??? Normal >=60 [facility] Comment on above: Order Comment: Speci men Type: BLOOD SPECIMENOrdering Facility: [facility] Address: [address] [place] [address] Result Comment: Jessica mated Glomerular Filtration Rate [...] GFR. Performed By: #### 2 4323-8, 0-3, , 2776-02 ####[facility] LABCLIA [id number] [place] [address] [place] Glucose [Mass/Vol] 83 mg/dL Normal 74-99 [facility] Comment on above: Order Comment: Speci men Type: BLOOD SPECIMENOrdering Facility: [facility] Address: [address] [place] [address] Result Comment: The [place] [employer] (ADA) provides guidance for cutoff [...] Standards of Medical Care in Diabetes 2016, [place] [employer]. Diabetes Care. 2016.39(Suppl 1). Performed By: #### 2 4323-8, 3039-3, , 2776-02 ####[facility] LABCLIA [id number] [place] [address] [place] Potassium [Moles/Vol] 3.7 mmol/L Normal 3.7-5.1 [facility] Comment on above: Order Comment: Speci men Type: BLOOD SPECIMENOrdering Facility: [facility] Address: [address] [place] [address] Performed By: #### 2 4323-8, 3, , 2776-02 ####[facility] LABIA [id number] [place] [id number] [place] Protein [Mass/Vol] 5.9 g/dL Low 6.3-8.0 [facility] Comment on above: Order Comment: Speci men Type: BLOOD SPECIMENOrdering Facility: [facility] Address: [address] [place] [id number] Performed By: #### 2 4323-8, 3, , 2776-02 ####[facility] LABCLIA [id number] [place] [id number] [place] Sodium [Moles/Vol] 140 mmol/L Normal 136-144 [facility] Comment on above: Order Comment: Speci men Type: BLOOD SPECIMENOrdering Facility: [facility] Address: [address] [place] [address] Performed By: #### 2 4323-8, 3039-3, , 2776-02 ####[facility] LABCLIA [id number] [address] [address] [place] Urea nitrogen [Mass/Vol] 13 mg/dL Normal 7-21 [facility] Comment on above: Order Comment: Speci men Type: BLOOD SPECIMENOrdering Facility: [facility] Address: [address] [place] [address] Performed By: #### 2 4323-8, 3, , 2776-02 ####[facility] LABCLIA [id number] [address] [address] [place] ED NOTEon 12-06-2022 ED NOTE HNO ID: [id number] Author: Michelle Regalado RN Service: Emergency Medicine Author Type: Registered Nurse Type: ED Notes Filed: 12/06/2022 10:09 PM Note Text: Report called to DEE Argueta. Normal [facility] ED NOTE HNO ID: [id number] Author: Maia Mosher RN Service: Emergency Medicine Author Type: Registered Nurse Type: ED Notes Filed: 12/06/2022 3:19 PM Note Text: Nurse handoff given to DEE Carreon Normal [facility] ED PROV NOTEon 12-06-2022 ED PROV NOTE Normal [facility] HISTORY PHYSICALon HISTORY PHYSICAL Normal [facility] Lipase SerPl-cCncon 12-07-19 23 Lipase [Catalytic activity/Vol] 40 U/L Normal 16-61 [facility] Comment on above: Order Comment: Speci men Type: BLOOD SPECIMENOrdering Facility: [facility] Address: [address] [place], [place] [id number] Performed By: #### 2 4323-8, 3039-3, , 2776-02 ####[facility] LABCLIA [id number] [place] [id number] [place] Magnesium [facility] 12-06 Magnesium [Mass/Vol] 2.0 mg/dL Normal 1.7-2.3 [facility] Comment on above: Order Comment: Speci men Type: BLOOD SPECIMENOrdering Facility: [facility] Address: [address] [place] [address] Performed By: #### 2 4323-8, 3040-3, 16693-5, 7-1 ####[facility] LABCLIA [id number] [place] [address] [place] Phosphate SerPl-mCncon 12-06 Phosphate [Mass/Vol] 2.7 mg/dL Normal 2.7-4.8 [facility] Comment on above: Order Comment: Speci men Type: BLOOD SPECIMENOrdering Facility: [facility] Address: [address] [place] [address] Performed By: #### 2 4323-8, 0-3, 49803-2, 2776- ####[facility] LABIA [id number] [place] [address] [place] Urinalysis complete panel (U )on 12-06-2022 Bacteria LM.HPF (Urine sed) [#/Area] Negative Normal Negative [facility] Comment on above: Order Comment: Speci men Type: URINE SPECIMENOrdering Facility: [facility] Address: [address] [place] [address] Performed By: #### 2 4356-8 ####[facility] LABCLIA [id number] [place] [address] [place] Bilirubin Ql (U) Negative Normal Negative [facility] Comment on above: Order Comment: Speci men Type: URINE SPECIMENOrdering Facility: [facility] Address: [address] [place] [address] Performed By: #### 2 4356-8 ####[facility] LABCLIA [id number] [place] [address] [place] Clarity (Unsp spec) Clear Normal Clear [facility] Comment on above: Order Comment: Speci men Type: URINE SPECIMENOrdering Facility: [facility] Address: [address] [place] [address] Performed By: #### 2 4356-8 ####[facility] LABCLIA [id number] [place] [address] [place] Color (U) Yellow Normal Yellow [facility] Comment on above: Order Comment: Speci men Type: URINE SPECIMENOrdering Facility: [facility] Address: [address] [place] [address] Performed By: #### 2 4356-8 ####[facility] LABIA [id number] [place] [address] [place] Epithelial cells LM.HPF (Urine sed) [#/Area] Moderate Normal [facility] Comment on above: Order Comment: Speci men Type: URINE SPECIMENOrdering Facility: [facility] Address: [address] [place] [address] Performed By: #### 2 4356-8 ####[facility] LABIA [id number] [place] [address] [place] Glucose Test strip (U) [Mass/Vol] Negative Normal Negative [facility] Comment on above: Order Comment: Speci men Type: URINE SPECIMENOrdering Facility: [facility] Address: [address] [place] [address] Performed By: #### 2 4356-8 ####[facility] LABIA [id number] [place] [address] [place] Hemoglobin Ql (U) Negative Normal Negative [facility] Comment on above: Order Comment: Speci men Type: URINE SPECIMENOrdering Facility: [facility] Address: [address] [place] [address] Performed By: #### 2 4356-8 ####[facility] LABCLIA [id number] [place] [address] [place] Hyaline casts (Urine sed) [#/Area] 0 /[LPF] Normal 0 /LPF [facility] Comment on above: Order Comment: Speci men Type: URINE SPECIMENOrdering Facility: [facility] Address: [address] [place] [address] Performed By: #### 2 4356-8 ####[facility] LABCLIA [id number] [place] [address] [place] Ketones Ql (U) Negative Normal Negative [facility] Comment on above: Order Comment: Speci men Type: URINE SPECIMENOrdering Facility: [facility] Address: [address] [place] [address] Performed By: #### 2 4356-8 ####[facility] LABCLIA [id number] [place] [address] [place] Leukocyte esterase Test strip Ql (U) Negative Normal Negative [facility] Comment on above: Order Comment: Speci men Type: URINE SPECIMENOrdering Facility: [facility] Address: [address] [place] [address] Performed By: #### 2 4356-8 ####[facility] LABCLIA [id number] [place] [address] [place] Nitrite Ql (U) Negative Normal Negative [facility] Comment on above: Order Comment: Speci men Type: URINE SPECIMENOrdering Facility: [facility] Address: [address] [place] [address] Performed By: #### 2 4356-8 ####[facility] LABCLIA [id number] [place] [address] [place] pH (U) 7.0 [pH] Normal <8.5 [facility] Comment on above: Order Comment: Speci men Type: URINE SPECIMENOrdering Facility: [facility] Address: [address] [place] [address] Performed By: #### 2 4356-8 ####[facility] LABIA [id number] [place] [address] [place] Protein (U) [Mass/Vol] Negative Normal Negative [facility] Comment on above: Order Comment: Speci men Type: URINE SPECIMENOrdering Facility: [facility] Address: [address] [place] [address] Performed By: #### 2 4356-8 ####[facility] LABIA [id number] [place] [address] [place] RBC LM.HPF (Urine sed) [#/Area] 0-2 /HPF Normal 0-2 /HPF [facility] Comment on above: Order Comment: Speci men Type: URINE SPECIMENOrdering Facility: [facility] Address: [address] [place] [address] Performed By: #### 2 4356-8 ####[facility] [id number] [place] [address] [place] Specific gravity (U) [Rel density] 1.014 Normal 1.005-1.030 [facility] Comment on above: Order Comment: Speci men Type: URINE SPECIMENOrdering Facility: [facility] Address: [address] [place] [address] Performed By: #### 2 4356-8 ####[facility] LABIA [id number] [place] [address] [place] Urobilinogen Ql (U) 0.2 EU/dL Normal 0.2-1.0 EU/dL [facility] Comment on above: Order Comment: Speci men Type: URINE SPECIMENOrdering Facility: [facility] Address: [address] [place] [address] Performed By: #### 2 4356-8 ####[facility] LABIA [id number] [place] [id number] [place] WBC LM.HPF (Urine sed) [#/Area] 0-5 /HPF Normal 0-5 /HPF [facility] Comment on above: Order Comment: Speci men Type: URINE SPECIMENOrdering Facility: [facility] Address: [address] [place] [address] Performed By: #### 2 4356-8 ####[facility] LABCLIA [id number] [facility] [place] [address] [place] CNOVon 12-04-2022 CNOV Normal [facility] HISTORY PHYSICALon HISTORY PHYSICAL Normal [facility] Basic Metabolic Panelon 11-15 Anion gap [Moles/Vol] 10 mmol/L Normal -15 [facility] Comment on above: Performed By: #### L IPAS #### [facility] [address] [place] [address] Calcium [Mass/Vol] 8.4 mg/dL Low 8.5-9.9 [facility] Comment on above: Performed By: #### L IPAS #### [facility] [address] [place] [address] Chloride [Moles/Vol] 108 mmol/L Critically high 95-107 [facility] Comment on above: Performed By: #### L IPAS #### [facility] [address] [place] [address] CO2 [Moles/Vol] 23 mmol/L Normal 20-31 [facility] Comment on above: Performed By: #### L IPAS #### [facility] [address] [place] [address] Creatinine [Mass/Vol] 0.64 mg/dL Normal 0.50-0.90 [facility] Comment on above: Performed By: #### L IPAS #### [facility] [address] [place] [address] GFR >60.0 Normal >60 [facility] Comment on above: Result Comment: Pedi [...] secretion. Performed By: #### L IPAS #### [facility] [address] [place] [address] Glucose [Mass/Vol] 86 mg/dL Normal 70-99 [facility] Comment on above: Performed By: #### L IPAS #### [facility] [address] [place] [address] Potassium [Moles/Vol] 3.9 mmol/L Normal 3.4-4.9 [facility] Comment on above: Performed By: #### L IPAS #### [facility] [address] [place] [address] Sodium [Moles/Vol] 141 mmol/L Normal 135-144 [facility] Comment on above: Performed By: #### L IPAS #### [facility] [address] [place] [address] Urea nitrogen [Mass/Vol] 14 mg/dL Normal 6-20 [facility] Comment on above: Performed By: #### L IPAS #### [facility] [address] [place] [address] CBC With Platelet and Differ entialon 12-03-2022 Basophils (Bld) [#/Vol] 0.0 10*3/uL Normal 0.0-0.2 [facility] Comment on above: Performed By: #### C BCWD #### [facility] [address] [place] [address] Basophils/100 WBC (Bld) 0.9 % Normal [facility] Comment on above: Performed By: #### C BCWD #### [facility] [address] [place] [address] Eosinophils (Bld) [#/Vol] 0.2 10*3/uL Normal 0.0-0.7 [facility] Comment on above: Performed By: #### C BCWD #### [facility] [address] [place] [address] Eosinophils/100 WBC (Bld) 5.2 % Normal [facility] Comment on above: Performed By: #### C BCWD #### [facility] [address] [place] [address] Erythrocyte distribution width (RBC) [Ratio] 13.2 % Normal 11.5-14.5 [facility] Comment on above: Performed By: #### C BCWD #### [facility] [address] [place] [address] Hematocrit (Bld) [Volume fraction] 35.9 % Low 37.0-47.0 [facility] Comment on above: Performed By: #### C BCWD #### [facility] [address] [place] [address] Hemoglobin (Bld) [Mass/Vol] 12.3 g/dL Normal 12.0-16.0 [facility] Comment on above: Performed By: #### C BCWD #### [facility] [address] [place] [address] Lymphocytes (Bld) [#/Vol] 1.3 10*3/uL Normal 1.0-4.8 [facility] Comment on above: Performed By: #### C BCWD #### [facility] [address] [place] [address] Lymphocytes/100 WBC (Bld) 38.2 % Normal [facility] Comment on above: Performed By: #### C BCWD #### [facility] [address] [place] [address] MCH (RBC) [Entitic mass] 30.8 pg Normal 27.0-31.3 [facility] Comment on above: Performed By: #### C BCWD #### [facility] [address] [place] [address] MCHC 34.3 % Normal 33.0-37.0 [facility] Comment on above: Performed By: #### C BCWD #### [facility] [address] [place] [address] MCV (RBC) [Entitic vol] 89.8 fL Normal 79.4-94.8 [facility] Comment on above: Performed By: #### C BCWD #### [facility] [address] [place] [address] Monocytes (Bld) [#/Vol] 0.4 10*3/uL Normal 0.2-0.8 [facility] Comment on above: Performed By: #### C BCWD #### [facility] [address] [place] [address] Monocytes/100 WBC (Bld) 10.9 % Normal [facility] Comment on above: Performed By: #### C BCWD #### [facility] [address] [place] [address] Neutrophils (Bld) [#/Vol] 1.5 10*3/uL Normal 1.4-6.5 [facility] Comment on above: Performed By: #### C BCWD #### [facility] [address] [place] [address] Neutrophils/100 WBC (Bld) 44.5 % Normal [facility] Comment on above: Performed By: #### C BCWD #### [facility] [address] [place] [address] Platelets (Bld) [#/Vol] 204 10*3/uL Normal 130-400 [facility] Comment on above: Performed By: #### C BCWD #### [facility] [address] [place] [address] RBC (Bld) [#/Vol] 4.00 10*6/uL Low 4.20-5.40 [facility] Comment on above: Performed By: #### C BCWD #### [facility] [address] [place] [address] WBC (Bld) [#/Vol] 3.3 10*3/uL Low 4.8-10.8 [facility] Comment on above: Performed By: #### C BCWD #### [facility] [address] [place] [address] Basophils (Bld) [#/Vol] 0.0 10*3/uL Normal 0.0-0.2 [facility] Comment on above: Performed By: #### P GLU #### [facility] [address] [place] [address] Basophils/100 WBC (Bld) 0.7 % Normal [facility] Comment on above: Performed By: #### P GLU #### [facility] [address] [place] [address] Eosinophils (Bld) [#/Vol] 0.2 10*3/uL Normal 0.0-0.7 [facility] Comment on above: Performed By: #### P GLU #### [facility] [address] [place] [address] Eosinophils/100 WBC (Bld) 5.9 % Normal [facility] Comment on above: Performed By: #### P GLU #### [facility] [address] [place] [address] Erythrocyte distribution width (RBC) [Ratio] 13.5 % Normal 11.5-14.5 [facility] Comment on above: Performed By: #### P GLU #### [facility] [address] [place] [address] Hematocrit (Bld) [Volume fraction] 33.2 % Low 37.0-47.0 [facility] Comment on above: Performed By: #### P GLU #### [facility] [address] [place] [address] Hemoglobin (Bld) [Mass/Vol] 11.8 g/dL Low 12.0-16.0 [facility] Comment on above: Performed By: #### P GLU #### [facility] [address] [place] [address] Lymphocytes (Bld) [#/Vol] 1.1 10*3/uL Normal 1.0-4.8 [facility] Comment on above: Performed By: #### P GLU #### [facility] [address] [place] [address] Lymphocytes/100 WBC (Bld) 39.5 % Normal [facility] Comment on above: Performed By: #### P GLU #### [facility] [address] [place] [address] MCH (RBC) [Entitic mass] 34.0 pg Critically high 27.0-31.3 [facility] Comment on above: Performed By: #### P GLU #### [facility] [address] [place] [address] MCHC 35.5 % Normal 33.0-37.0 [facility] Comment on above: Performed By: #### P GLU #### [facility] [address] [place] [address] MCV (RBC) [Entitic vol] 95.7 fL Critically high 79.4-94.8 [facility] Comment on above: Performed By: #### P GLU #### [facility] [address] [place] [address] Monocytes (Bld) [#/Vol] 0.3 10*3/uL Normal 0.2-0.8 [facility] Comment on above: Performed By: #### P GLU #### [facility] [address] [place] [address] Monocytes/100 WBC (Bld) 9.1 % Normal [facility] Comment on above: Performed By: #### P GLU #### [facility] [address] [place] [address] Neutrophils (Bld) [#/Vol] 1.3 10*3/uL Low 1.4-6.5 [facility] Comment on above: Performed By: #### P GLU #### [facility] [address] [place] [address] Neutrophils/100 WBC (Bld) 44.5 % Normal [facility] Comment on above: Performed By: #### P GLU #### [facility] [address] [place] [address] Platelets (Bld) [#/Vol] 186 10*3/uL Normal 130-400 [facility] Comment on above: Performed By: #### P GLU #### [facility] [address] [place] [address] RBC (Bld) [#/Vol] 3.47 10*6/uL Low 4.20-5.40 [facility] Comment on above: Performed By: #### P GLU #### [facility] [address] [place] [address] WBC (Bld) [#/Vol] 2.9 10*3/uL Low 4.8-10.8 [facility] Comment on above: Performed By: #### P GLU #### [facility] [address] [place] [address] CNPNon 12-03-2022 CNPN Normal [facility] Magnesiumon 12-03-2022 Magnesium [Mass/Vol] 1.8 mg/dL Normal 1.7-2.4 [facility] Comment on above: Performed By: #### L IPAS #### [facility] [address] [place] [address] POCT Glucoseon 12-03-2022 Glucose [Mass/Vol] 90 mg/dL Normal 70-99 [facility] Comment on above: Performed By: #### P GLU #### [facility] [address] [place] [address] POC Performed on ACCU-CHEK Normal [facility] Comment on above: Performed By: #### P GLU #### [facility] [address] [place] [address] Glucose [Mass/Vol] 101 mg/dL Critically high 70-99 [facility] Comment on above: Performed By: #### L IPAS #### [facility] [address] [place] [address] POC Performed on ACCU-CHEK Normal [facility] Comment on above: Performed By: #### L IPAS #### [facility] [address] [place] [address] Phosphoruson 12-03-2022 Phosphate [Mass/Vol] 3.6 mg/dL Normal 2.3-4.8 [facility] Comment on above: Performed By: #### L IPAS #### [facility] [address] [place] [address] Basic Metabolic Panelon 11-15 Anion gap [Moles/Vol] 6 mmol/L Low 9-15 [facility] Comment on above: Performed By: #### C BCWD #### [facility] [address] [place] [address] Calcium [Mass/Vol] 8.4 mg/dL Low 8.5-9.9 [facility] Comment on above: Performed By: #### C BCWD #### [facility] [address] [place] [address] Chloride [Moles/Vol] 107 mmol/L Normal 95-107 [facility] Comment on above: Performed By: #### C BCWD #### [facility] [address] [place] [address] CO2 [Moles/Vol] 25 mmol/L Normal 20-31 [facility] Comment on above: Performed By: #### C BCWD #### [facility] [address] [place] [address] Creatinine [Mass/Vol] 0.57 mg/dL Normal 0.50-0.90 [facility] Comment on above: Performed By: #### C BCWD #### [facility] [address] [place] [address] GFR >60.0 Normal >60 [facility] Comment on above: Result Comment: Adán [...] secretion. Performed By: #### C BCWD #### [facility] [address] [place] [address] Glucose [Mass/Vol] 104 mg/dL Critically high 70-99 [facility] Comment on above: Performed By: #### C BCWD #### [facility] [address] [place] [address] Potassium [Moles/Vol] 4.0 mmol/L Normal 3.4-4.9 [facility] Comment on above: Performed By: #### C BCWD #### [facility] [address] [place] [address] Sodium [Moles/Vol] 138 mmol/L Normal 135-144 [facility] Comment on above: Performed By: #### C BCWD #### [facility] [address] [place] [address] Urea nitrogen [Mass/Vol] 12 mg/dL Normal 6-20 [facility] Comment on above: Performed By: #### C BCWD #### [facility] [address] [place] [address] CBC With Platelet and Differ entialon 12-02-2022 Anisocytosis Ql (Bld) 1+ Normal [facility] Comment on above: Performed By: #### C BCWD #### [facility] [address] [place] [address] Basophils (Bld) [#/Vol] 0.0 10*3/uL Normal 0.0-0.2 [facility] Comment on above: Performed By: #### C BCWD #### [facility] [address] [place] [address] Basophils/100 WBC (Bld) 1.0 % Normal [facility] Comment on above: Performed By: #### C BCWD #### [facility] [address] [place] [address] Eosinophils (Bld) [#/Vol] 0.2 10*3/uL Normal 0.0-0.7 [facility] Comment on above: Performed By: #### C BCWD #### [facility] [address] [place] [address] Eosinophils/100 WBC (Bld) 9.0 % Normal [facility] Comment on above: Performed By: #### C BCWD #### [facility] [address] [place] [address] Lymphocytes (Bld) [#/Vol] 0.9 10*3/uL Low 1.0-4.8 [facility] Comment on above: Performed By: #### C BCWD #### [facility] [address] [place] [address] Lymphocytes/100 WBC (Bld) 35.0 % Normal [facility] Comment on above: Performed By: #### C BCWD #### [facility] [address] [place] [address] Monocytes (Bld) [#/Vol] 0.1 10*3/uL Low 0.2-0.8 [facility] Comment on above: Performed By: #### C BCWD #### [facility] [address] [place] [address] Monocytes/100 WBC (Bld) 4.6 % Normal [facility] Comment on above: Performed By: #### C BCWD #### [facility] [address] [place] [address] Neutrophils (Bld) [#/Vol] 1.4 10*3/uL Normal 1.4-6.5 [facility] Comment on above: Performed By: #### C BCWD #### [facility] [address] [place] [address] Neutrophils/100 WBC (Bld) 50.0 % Normal [facility] Comment on above: Performed By: #### C BCWD #### [facility] [address] [place] [address] Ovalocytes 1+ Normal [facility] Comment on above: Performed By: #### C BCWD #### [facility] [address] [place] [address] Poikilocytosis 1+ Normal [facility] Comment on above: Performed By: #### C BCWD #### [facility] [address] [place] [address] Erythrocyte distribution width (RBC) [Ratio] 13.3 % Normal 11.5-14.5 [facility] Comment on above: Performed By: #### C BCWD #### [facility] [address] [place] [address] Hematocrit (Bld) [Volume fraction] 34.0 % Low 37.0-47.0 [facility] Comment on above: Performed By: #### C BCWD #### [facility] [address] [place] [address] Hemoglobin (Bld) [Mass/Vol] 11.8 g/dL Low 12.0-16.0 [facility] Comment on above: Performed By: #### C BCWD #### [facility] [address] [place] [address] MCH (RBC) [Entitic mass] 31.3 pg Normal 27.0-31.3 [facility] Comment on above: Performed By: #### C BCWD #### [facility] [address] [place] [address] MCHC 34.7 % Normal 33.0-37.0 [facility] Comment on above: Performed By: #### C BCWD #### [facility] [address] [place] [address] MCV (RBC) [Entitic vol] 90.2 fL Normal 79.4-94.8 [facility] Comment on above: Performed By: #### C BCWD #### [facility] [address] [place] [address] Platelets (Bld) [#/Vol] 201 10*3/uL Normal 130-400 [facility] Comment on above: Performed By: #### C BCWD #### [facility] [address] [place] [address] RBC (Bld) [#/Vol] 3.77 10*6/uL Low 4.20-5.40 [facility] Comment on above: Performed By: #### C BCWD #### [facility] [address] [place] [address] WBC (Bld) [#/Vol] 2.7 10*3/uL Low 4.8-10.8 [facility] Comment on above: Performed By: #### C BCWD #### [facility] [address] [place] [address] Magnesiumon 12-02-2022 Magnesium [Mass/Vol] 1.9 mg/dL Normal 1.7-2.4 [facility] Comment on above: Performed By: #### C BCWD #### [facility] [address] [place] [address] POCT Glucoseon 12-02-2022 Glucose [Mass/Vol] 115 mg/dL Critically high 70-99 M [facility] Comment on above: Performed By: #### P GLU #### [facility] [address] [place] [address] POC Performed on ACCU-CHEK Normal [facility] Comment on above: Performed By: #### P GLU #### [facility] [address] [place] [address] Glucose [Mass/Vol] 94 mg/dL Normal 70-99 [facility] Comment on above: Performed By: #### P GLU #### [facility] [address] [place] [address] POC Performed on ACCU-CHEK Normal [facility] Comment on above: Performed By: #### P GLU #### [facility] [address] [place] [address] Glucose [Mass/Vol] 94 mg/dL Normal 70-99 [facility] Comment on above: Performed By: #### P GLU #### [facility] [address] [place] [address] POC Performed on ACCU-CHEK Normal [facility] Comment on above: Performed By: #### P GLU #### [facility] [address] [place] [address] Phosphoruson 12-02-2022 Phosphate [Mass/Vol] 3.7 mg/dL Normal 2.3-4.8 [facility] Comment on above: Performed By: #### P GLU #### [facility] [address] [place] [address] CNPNon 12-01-2022 CNPN Normal [facility] Metabolic Pane nestor 12-01-2022 Albumin [Mass/Vol] 3.7 g/dL Normal 3.5-4.6 [facility] Comment on above: Performed By: #### C BCWD #### [facility] [address] [place] [address] ALP [Catalytic activity/Vol] 62 U/L Normal 40-130 [facility] Comment on above: Performed By: #### C BCWD #### [facility] [address] [place] [address] ALT [Catalytic activity/Vol] 16 U/L Normal 0-33 [facility] Comment on above: Performed By: #### C BCWD #### [facility] [address] [place] [address] Anion gap [Moles/Vol] 7 mmol/L Low 9-15 [facility] Comment on above: Performed By: #### C BCWD #### [facility] [address] [place] [address] AST [Catalytic activity/Vol] 30 U/L Normal 0-35 [facility] Comment on above: Performed By: #### C BCWD #### [facility] [address] [place] [address] Bilirubin [Mass/Vol] 0.3 mg/dL Normal 0.2-0.7 [facility] Comment on above: Performed By: #### C BCWD #### [facility] [address] [place] [address] Calcium [Mass/Vol] 8.3 mg/dL Low 8.5-9.9 [facility] Comment on above: Performed By: #### C BCWD #### [facility] [address] [place] [address] Chloride [Moles/Vol] 106 mmol/L Normal 95-107 [facility] Comment on above: Performed By: #### C BCWD #### [facility] [address] [place] [address] CO2 [Moles/Vol] 23 mmol/L Normal 20-31 [facility] Comment on above: Performed By: #### C BCWD #### [facility] [address] [place] [address] Creatinine [Mass/Vol] 0.66 mg/dL Normal 0.50-0.90 [facility] Comment on above: Performed By: #### C BCWD #### [facility] [address] [place] [address] GFR >60.0 Normal >60 [facility] Comment on above: Result Comment: Pedi [...] secretion. Performed By: #### C BCWD #### [facility] [address] [place] [address] Globulin (S) [Mass/Vol] 2.1 g/dL Low 2.3-3.5 [facility] Comment on above: Performed By: #### C BCWD #### [facility] [address] [place] [address] Glucose [Mass/Vol] 104 mg/dL Critically high 70-99 [facility] Comment on above: Performed By: #### C BCWD #### [facility] [address] [place] [address] Potassium [Moles/Vol] 3.9 mmol/L Normal 3.4-4.9 [facility] Comment on above: Performed By: #### C BCWD #### [facility] [address] [place] [address] Protein [Mass/Vol] 5.8 g/dL Low 6.3-8.0 [facility] Comment on above: Performed By: #### C BCWD #### [facility] [address] [place] [address] Sodium [Moles/Vol] 136 mmol/L Normal 135-144 [facility] Comment on above: Performed By: #### C BCWD #### [facility] [address] [place] [address] Urea nitrogen [Mass/Vol] 6 mg/dL Normal 6-20 [facility] Comment on above: Performed By: #### C BCWD #### [facility] [address] [place] [address] Magnesiumon 12-01-2022 Magnesium [Mass/Vol] 2.0 mg/dL Normal 1.7-2.4 [facility] Comment on above: Performed By: #### C BCWD #### [facility] [address] [place] [address] POCT Glucoseon 12-01-2022 Glucose [Mass/Vol] 113 mg/dL Critically high 70-99 M [facility] Comment on above: Performed By: #### P GLU #### [facility] [address] [place] [address] POC Performed on ACCU-CHEK Normal [facility] Comment on above: Result Comment: Robby meneses RN or Performed By: #### P GLU #### [facility] [address] [place] [address] Phosphoruson 12-01-2022 Phosphate [Mass/Vol] 3.7 mg/dL Normal 2.3-4.8 [facility] Comment on above: Performed By: #### P GLU #### [facility] [address] [place] [address] Triglycerideson 12-01-2022 Triglyceride [Mass/Vol] 111 mg/dL Normal 0-150 [facility] Comment on above: Result Comment: ATP III Triglycerides Classification is Normal. Performed By: #### T RIG #### [facility] [address] [place] [address] Comprehensive Metabolic Pane nestor 11-30-2022 Albumin [Mass/Vol] 3.5 g/dL Normal 3.5-4.6 [facility] Comment on above: Performed By: #### C BCWD #### [facility] [address] [place] [address] ALP [Catalytic activity/Vol] 45 U/L Normal 40-130 [facility] Comment on above: Performed By: #### C BCWD #### [facility] [address] [place] [address] ALT [Catalytic activity/Vol] 15 U/L Normal 0-33 [facility] Comment on above: Result Comment: Spec imen hemolysis has exceeded the interference as defined by Kamran. Result may be affected. Suggest recollection if clinically indicated. Performed By: #### C BCWD #### [facility] [address] [place] [address] Anion gap [Moles/Vol] 6 mmol/L Low 9-15 [facility] Comment on above: Performed By: #### C BCWD #### [facility] [address] [place] [address] AST [Catalytic activity/Vol] 40 U/L Critically high 0-35 [facility] Comment on above: Result Comment: Spec imen hemolysis has exceeded the interference as defined by Kamran. Value may be falsely increased. Suggest recollection if clinically indicated. Performed By: #### C BCWD #### [facility] [address] [place] [address] Bilirubin [Mass/Vol] 0.3 mg/dL Normal 0.2-0.7 [facility] Comment on above: Performed By: #### C BCWD #### [facility] [address] [place] [address] Calcium [Mass/Vol] 8.3 mg/dL Low 8.5-9.9 [facility] Comment on above: Performed By: #### C BCWD #### [facility] [address] [place] [address] Chloride [Moles/Vol] 107 mmol/L Normal 95-107 [facility] Comment on above: Performed By: #### C BCWD #### [facility] [address] [place] [address] CO2 [Moles/Vol] 23 mmol/L Normal 20-31 [facility] Comment on above: Performed By: #### C BCWD #### [facility] [address] [place] [address] Creatinine [Mass/Vol] 0.69 mg/dL Normal 0.50-0.90 [facility] Comment on above: Performed By: #### C BCWD #### [facility] [address] [place] [address] GFR >60.0 Normal >60 [facility] Comment on above: Result Comment: Adán [...] secretion. Performed By: #### C BCWD #### [facility] [address] [place] [address] Globulin (S) [Mass/Vol] 1.9 g/dL Low 2.3-3.5 [facility] Comment on above: Performed By: #### C BCWD #### [facility] [address] [place] [address] Glucose [Mass/Vol] 86 mg/dL Normal 70-99 [facility] Comment on above: Performed By: #### C BCWD #### [facility] [address] [place] [address] Potassium [Moles/Vol] 4.6 mmol/L Normal 3.4-4.9 [facility] Comment on above: Result Comment: Spec imen hemolysis has exceeded the interference as defined by Kamran. Value may be falsely increased. Suggest recollection if clinically indicated. Performed By: #### C BCWD #### [facility] [address] [place] [address] Protein [Mass/Vol] 5.4 g/dL Low 6.3-8.0 [facility] Comment on above: Performed By: #### C BCWD #### [facility] [address] [place] [address] Sodium [Moles/Vol] 136 mmol/L Normal 135-144 [facility] Comment on above: Performed By: #### C BCWD #### [facility] [address] [place] [address] Urea nitrogen [Mass/Vol] 4 mg/dL Low 6-20 [facility] Comment on above: Performed By: #### C BCWD #### [facility] [address] [place] [address] IR PICC WO SQ PORT/PUMP > 5 [...] caps and surgical masks. In addition, the tool shaper setup operator and assistant community manager donned sterile gowns and gloves after proper hand cleansing. A pre-procedure time out was performed in order to assure the correct patient and procedure. Local anesthetic was administered. A peripheral vein was accessed with sonographic guidance. A sonographic spot image was obtained for documentation. A guidewire was advanced into the vein with fluoroscopic guidance and a sheath was placed over the guidewire. A 5-Turkmen dual-lumen PICC was advanced through the sheath, [...] Cedrick Billings MD 11/30/22 Final result Normal [facility] Magnesiumon 11-30-2022 Magnesium [Mass/Vol] 1.9 mg/dL Normal 1.7-2.4 [facility] Comment on above: Performed By: #### P GLU #### [facility] [address] [place] [address] Phosphoruson 11-30-2022 Phosphate [Mass/Vol] 3.2 mg/dL Normal 2.3-4.8 [facility] Comment on above: Performed By: #### C BCWD #### [facility] [address] [place] [address] CBC With Platelet and Differ entialon 11-29-2022 Basophils (Bld) [#/Vol] 0.0 10*3/uL Normal 0.0-0.2 [facility] Comment on above: Performed By: #### P GLU #### [facility] [address] [place] [address] Basophils/100 WBC (Bld) 0.6 % Normal [facility] Comment on above: Performed By: #### P GLU #### [facility] [address] [place] [address] Eosinophils (Bld) [#/Vol] 0.1 10*3/uL Normal 0.0-0.7 [facility] Comment on above: Performed By: #### P GLU #### [facility] [address] [place] [address] Eosinophils/100 WBC (Bld) 4.4 % Normal [facility] Comment on above: Performed By: #### P GLU #### [facility] [address] [place] [address] Erythrocyte distribution width (RBC) [Ratio] 13.6 % Normal 11.5-14.5 [facility] Comment on above: Performed By: #### P GLU #### [facility] [address] [place] [address] Hematocrit (Bld) [Volume fraction] 36.4 % Low 37.0-47.0 [facility] Comment on above: Performed By: #### P GLU #### [facility] [address] [place] [address] Hemoglobin (Bld) [Mass/Vol] 12.2 g/dL Normal 12.0-16.0 [facility] Comment on above: Performed By: #### P GLU #### [facility] [address] [place] [address] Lymphocytes (Bld) [#/Vol] 1.3 10*3/uL Normal 1.0-4.8 [facility] Comment on above: Performed By: #### P GLU #### [facility] [address] [place] [address] Lymphocytes/100 WBC (Bld) 41.0 % Normal [facility] Comment on above: Performed By: #### P GLU #### [facility] [address] [place] [address] MCH (RBC) [Entitic mass] 30.9 pg Normal 27.0-31.3 [facility] Comment on above: Performed By: #### P GLU #### [facility] [address] [place] [address] MCHC 33.5 % Normal 33.0-37.0 [facility] Comment on above: Performed By: #### P GLU #### [facility] [address] [place] [address] MCV (RBC) [Entitic vol] 92.2 fL Normal 79.4-94.8 [facility] Comment on above: Performed By: #### P GLU #### [facility] [address] [place] [address] Monocytes (Bld) [#/Vol] 0.3 10*3/uL Normal 0.2-0.8 [facility] Comment on above: Performed By: #### P GLU #### [facility] [address] [place] [address] Monocytes/100 WBC (Bld) 9.8 % Normal [facility] Comment on above: Performed By: #### P GLU #### [facility] [address] [place] [address] Neutrophils (Bld) [#/Vol] 1.4 10*3/uL Normal 1.4-6.5 [facility] Comment on above: Performed By: #### P GLU #### [facility] [address] [place] [address] Neutrophils/100 WBC (Bld) 44.2 % Normal [facility] Comment on above: Performed By: #### P GLU #### [facility] [address] [place] [address] Platelets (Bld) [#/Vol] 242 10*3/uL Normal 130-400 [facility] Comment on above: Performed By: #### P GLU #### [facility] [address] [place] [address] RBC (Bld) [#/Vol] 3.95 10*6/uL Low 4.20-5.40 [facility] Comment on above: Performed By: #### P GLU #### [facility] [address] [place] [address] WBC (Bld) [#/Vol] 3.2 10*3/uL Low 4.8-10.8 [facility] Comment on above: Performed By: #### P GLU #### [facility] [address] [place] [address] Comprehensive Metabolic Pane nestor 11-29-2022 Albumin [Mass/Vol] 3.5 g/dL Normal 3.5-4.6 [facility] Comment on above: Performed By: #### P GLU #### [facility] [address] [place] [address] ALP [Catalytic activity/Vol] 60 U/L Normal 40-130 [facility] Comment on above: Performed By: #### P GLU #### [facility] [address] [place] [address] ALT [Catalytic activity/Vol] 15 U/L Normal 0-33 [facility] Comment on above: Performed By: #### P GLU #### [facility] [address] [place] [address] Anion gap [Moles/Vol] 8 mmol/L Low 9-15 [facility] Comment on above: Performed By: #### P GLU #### [facility] [address] [place] [address] AST [Catalytic activity/Vol] 28 U/L Normal 0-35 [facility] Comment on above: Performed By: #### P GLU #### [facility] [address] [place] [address] Bilirubin [Mass/Vol] mg/dL Normal 0.2-0.7 [facility] Comment on above: Performed By: #### P GLU #### [facility] [address] [place] [address] Calcium [Mass/Vol] 8.4 mg/dL Low 8.5-9.9 [facility] Comment on above: Performed By: #### P GLU #### [facility] [address] [place] [address] Chloride [Moles/Vol] 113 mmol/L Critically high 95-107 [facility] Comment on above: Performed By: #### P GLU #### [facility] [address] [place] [address] CO2 [Moles/Vol] 23 mmol/L Normal 20-31 [facility] Comment on above: Performed By: #### P GLU #### [facility] [address] [place] [address] Creatinine [Mass/Vol] 0.71 mg/dL Normal 0.50-0.90 [facility] Comment on above: Performed By: #### P GLU #### [facility] [address] [place] [address] GFR >60.0 Normal >60 [facility] Comment on above: Result Comment: Adán [...] secretion. Performed By: #### P GLU #### [facility] [address] [place] [address] Globulin (S) [Mass/Vol] 2.2 g/dL Low 2.3-3.5 [facility] Comment on above: Performed By: #### P GLU #### [facility] [address] [place] [address] Glucose [Mass/Vol] 85 mg/dL Normal 70-99 [facility] Comment on above: Performed By: #### P GLU #### [facility] [address] [place] [address] Potassium [Moles/Vol] 4.2 mmol/L Normal 3.4-4.9 [facility] Comment on above: Performed By: #### P GLU #### [facility] [address] [place] [address] Protein [Mass/Vol] 5.7 g/dL Low 6.3-8.0 [facility] Comment on above: Performed By: #### P GLU #### [facility] [address] [place] [address] Sodium [Moles/Vol] 144 mmol/L Normal 135-144 [facility] Comment on above: Performed By: #### P GLU #### [facility] [address] [place] [address] Urea nitrogen [Mass/Vol] 5 mg/dL Low 6-20 [facility] Comment on above: Performed By: #### P GLU #### [facility] [address] [place] [address] Lactic Acidon 11-29-2022 Lactate [Moles/Vol] 0.9 mmol/L Normal 0.5-2.2 [facility] Comment on above: Performed By: #### L IPAS #### [facility] [address] [place] [address] Lipaseon 11-29-2022 Lipase [Catalytic activity/Vol] 48 U/L Normal 12-95 [facility] Comment on above: Performed By: #### L IPAS #### [facility] [address] [place] [address] Magnesiumon 11-29-2022 Magnesium [Mass/Vol] 1.9 mg/dL Normal 1.7-2.4 [facility] Comment on above: Performed By: #### P GLU #### [facility] [address] [place] [address] Partial Thromboplastin Timeo n 11-29-2022 aPTT Coag (Bld) [Time] 33.0 s Normal 24.4-36.8 [facility] Comment on above: Result Comment: Effe ctive 12/20/2019: Heparin Therapeutic Range: 64.0 ? 98.0 seconds. Performed By: #### C BCWD #### [facility] [address] [place] [address] Phosphoruson 11-29-2022 Phosphate [Mass/Vol] 3.3 mg/dL Normal 2.3-4.8 [facility] Comment on above: Performed By: #### C BCWD #### [facility] [address] [place] [address] Prothrombin Timeon INR Coag (PPP) [Relative time] 1.2 {INR} Normal [facility] Comment on above: Performed By: #### P T #### [facility] [address] [place] [address] PT Coag (PPP) [Time] 15.6 s Critically high 12.3-14.9 [facility] Comment on above: Performed By: #### P T #### [facility] [address] [place] [address] Prealbuminon 11-28-2022 Prealbumin [Mass/Vol] 15.0 mg/dL Low 20.0-40.0 [facility] Comment on above: Order Comment: Colle ction has been rescheduled by DUEAS at 11/28/2022 18:15 Reason:Failed attempt at venipuncture Performed By: #### L IPAS #### [facility] [address] [place] [address] Amylaseon 11-27-2022 Amylase [Catalytic activity/Vol] 44 U/L Normal 22-93 [facility] Comment on above: Performed By: #### P GLU #### [facility] [address] [place] [address] CBC With Platelet and Differ entialon 11-27-2022 Basophils (Bld) [#/Vol] 0.0 10*3/uL Normal 0.0-0.2 [facility] Comment on above: Performed By: #### P GLU #### [facility] [address] [place] [address] Basophils/100 WBC (Bld) 0.7 % Normal [facility] Comment on above: Performed By: #### P GLU #### [facility] [address] [place] [address] Eosinophils (Bld) [#/Vol] 0.1 10*3/uL Normal 0.0-0.7 [facility] Comment on above: Performed By: #### P GLU #### [facility] [address] [place] [address] Eosinophils/100 WBC (Bld) 1.4 % Normal [facility] Comment on above: Performed By: #### P GLU #### [facility] [address] [place] [address] Erythrocyte distribution width (RBC) [Ratio] 13.3 % Normal 11.5-14.5 [facility] Comment on above: Performed By: #### P GLU #### [facility] [address] [place] [address] Hematocrit (Bld) [Volume fraction] 38.0 % Normal 37.0-47.0 [facility] Comment on above: Performed By: #### P GLU #### [facility] [address] [place] [address] Hemoglobin (Bld) [Mass/Vol] 12.7 g/dL Normal 12.0-16.0 [facility] Comment on above: Performed By: #### P GLU #### [facility] [address] [place] [address] Lymphocytes (Bld) [#/Vol] 1.4 10*3/uL Normal 1.0-4.8 [facility] Comment on above: Performed By: #### P GLU #### [facility] [address] [place] [address] Lymphocytes/100 WBC (Bld) 32.1 % Normal [facility] Comment on above: Performed By: #### P GLU #### [facility] [address] [place] [address] MCH (RBC) [Entitic mass] 30.6 pg Normal 27.0-31.3 [facility] Comment on above: Performed By: #### P GLU #### [facility] [address] [place] [address] MCHC 33.4 % Normal 33.0-37.0 [facility] Comment on above: Performed By: #### P GLU #### [facility] [address] [place] [address] MCV (RBC) [Entitic vol] 91.6 fL Normal 79.4-94.8 [facility] Comment on above: Performed By: #### P GLU #### [facility] [address] [place] [address] Monocytes (Bld) [#/Vol] 0.3 10*3/uL Normal 0.2-0.8 [facility] Comment on above: Performed By: #### P GLU #### [facility] [address] [place] [address] Monocytes/100 WBC (Bld) 6.0 % Normal [facility] Comment on above: Performed By: #### P GLU #### [facility] [address] [place] [address] Neutrophils (Bld) [#/Vol] 2.6 10*3/uL Normal 1.4-6.5 [facility] Comment on above: Performed By: #### P GLU #### [facility] [address] [place] [address] Neutrophils/100 WBC (Bld) 59.6 % Normal [facility] Comment on above: Performed By: #### P GLU #### [facility] [address] [place] [address] Platelets (Bld) [#/Vol] 238 10*3/uL Normal 130-400 [facility] Comment on above: Performed By: #### P GLU #### [facility] [address] [place] [address] RBC (Bld) [#/Vol] 4.15 10*6/uL Low 4.20-5.40 [facility] Comment on above: Performed By: #### P GLU #### [facility] [address] [place] [address] WBC (Bld) [#/Vol] 4.4 10*3/uL Low 4.8-10.8 [facility] Comment on above: Performed By: #### P GLU #### [facility] [address] [place] [address] [address] ABDOMEN PELVIS W IV CONTR Daljit [...] Iker Ayala MD 11/27/22 Final result Normal [facility] CTA CHEST W WO CONTRASTon CTA [...] Jason Mcrae MD 11/27/22 Final result Normal [facility] Comprehensive Metabolic Pane nestor 11-27-2022 Albumin [Mass/Vol] 4.0 g/dL Normal 3.5-4.6 [facility] Comment on above: Performed By: #### P GLU #### [facility] [address] [place] [address] ALP [Catalytic activity/Vol] 60 U/L Normal 40-130 [facility] Comment on above: Performed By: #### P GLU #### [facility] [address] [place] [address] ALT [Catalytic activity/Vol] 20 U/L Normal 0-33 [facility] Comment on above: Performed By: #### P GLU #### [facility] [address] [place] [address] Anion gap [Moles/Vol] 10 mmol/L Normal 9-15 [facility] Comment on above: Performed By: #### P GLU #### [facility] [address] [place] [address] AST [Catalytic activity/Vol] 34 U/L Normal 0-35 [facility] Comment on above: Performed By: #### P GLU #### [facility] [address] [place] [address] Bilirubin [Mass/Vol] 0.4 mg/dL Normal 0.2-0.7 [facility] Comment on above: Performed By: #### P GLU #### [facility] [address] [place] [address] Calcium [Mass/Vol] 8.4 mg/dL Low 8.5-9.9 [facility] Comment on above: Performed By: #### P GLU #### [facility] [address] [place] [address] Chloride [Moles/Vol] 108 mmol/L Critically high 95-107 [facility] Comment on above: Performed By: #### P GLU #### [facility] [address] [place] [address] CO2 [Moles/Vol] 20 mmol/L Normal 20-31 [facility] Comment on above: Performed By: #### P GLU #### [facility] [address] [place] [address] Creatinine [Mass/Vol] 0.68 mg/dL Normal 0.50-0.90 [facility] Comment on above: Performed By: #### P GLU #### [facility] [address] [place] [address] GFR >60.0 Normal >60 [facility] Comment on above: Result Comment: Pedi [...] secretion. Performed By: #### P GLU #### [facility] [address] [place] [address] Globulin (S) [Mass/Vol] 2.3 g/dL Normal 2.3-3.5 [facility] Comment on above: Performed By: #### P GLU #### [facility] [address] [place] [address] Glucose [Mass/Vol] 82 mg/dL Normal 70-99 [facility] Comment on above: Performed By: #### P GLU #### [facility] [address] [place] [address] Potassium [Moles/Vol] 3.7 mmol/L Normal 3.4-4.9 [facility] Comment on above: Performed By: #### P GLU #### [facility] [address] [place] [address] Protein [Mass/Vol] 6.3 g/dL Normal 6.3-8.0 [facility] Comment on above: Performed By: #### P GLU #### [facility] [address] [place] [address] Sodium [Moles/Vol] 138 mmol/L Normal 135-144 [facility] Comment on above: Performed By: #### P GLU #### [facility] [address] [place] [address] Urea nitrogen [Mass/Vol] 8 mg/dL Normal 6-20 [facility] Comment on above: Performed By: #### P GLU #### [facility] [address] [place] [address] High Sensitivity Troponin To n 11-27-2022 High Sensitivity Troponin T <6 Normal 0-19 [facility] Comment on above: Result Comment: High Sensitivity Troponin values cannot be compared with other Troponin methodologies. Performed By: #### T RP5 #### [facility] [address] [place] [address] High Sensitivity Troponin T <6 Normal 0-19 [facility] Comment on above: Result Comment: High Sensitivity Troponin values cannot be compared with other Troponin methodologies. Performed By: #### P GLU #### [facility] [address] [place] [address] Lactic Acidon 11-27-2022 Lactate [Moles/Vol] 1.0 mmol/L Normal 0.5-2.2 [facility] Comment on above: Performed By: #### P GLU #### [facility] [address] [place] [address] Lipaseon 11-27-2022 Lipase [Catalytic activity/Vol] 37 U/L Normal 12-95 [facility] Comment on above: Performed By: #### P GLU #### [facility] [address] [place] [address] Magnesiumon 11-27-2022 Magnesium [Mass/Vol] 1.9 mg/dL Normal 1.7-2.4 [facility] Comment on above: Performed By: #### P GLU #### [facility] [address] [place] [address] POCT Venouson 11-27-2022 Creatinine [Mass/Vol] 0.9 mg/dL Normal 0.6-1.2 [facility] Comment on above: Performed By: #### L IPAS #### [facility] [address] [place] [address] GFR >60 Normal >60 [facility] Comment on above: Result Comment: Pedi [...] secretion. Performed By: #### L IPAS #### [facility] [address] [place] [address] POC Performed on SEE BELOW Normal [facility] Comment on above: Result Comment: Perf ormed on POC Performed By: #### L IPAS #### [facility] [address] [place] [address] POC Sample Type KIRA Normal [facility] Comment on above: Performed By: #### L IPAS #### [facility] [address] [place] [address] Urinalysis, reflex to cultur ryder 11-27-2022 Bilirubin Ql (U) Negative Normal Negative [facility] Comment on above: Performed By: #### P GLU #### [facility] [address] [place] [address] Clarity (U) Clear Normal Clear [facility] Comment on above: Performed By: #### P GLU #### [facility] [address] [place] [address] Color (U) Yellow Normal Straw/Hampshire [facility] Comment on above: Performed By: #### P GLU #### [facility] [address] [place] [address] Glucose Ql (U) Negative Normal Negative [facility] Comment on above: Performed By: #### P GLU #### [facility] [address] [place] [address] Hemoglobin Ql (U) Negative Normal Negative [facility] Comment on above: Performed By: #### P GLU #### [facility] [address] [place] [address] Ketones Ql (U) Negative Normal Negative [facility] Comment on above: Performed By: #### P GLU #### [facility] [address] [place] [address] Leukocyte esterase Test strip Ql (U) Negative Normal Negative [facility] Comment on above: Performed By: #### P GLU #### [facility] [address] [place] [address] Nitrite Ql (U) Negative Normal Negative [facility] Comment on above: Performed By: #### P GLU #### [facility] [address] [place] [address] pH (U) 7.5 [pH] Normal 5.0-9.0 [facility] Comment on above: Performed By: #### P GLU #### [facility] [address] [place] [address] Protein Ql (U) Negative Normal Negative [facility] Comment on above: Performed By: #### P GLU #### [facility] [address] [place] [address] Specific gravity (U) [Rel density] 1.026 Normal 1.005-1.03 [facility] Comment on above: Performed By: #### P GLU #### [facility] [address] [place] [address] Urine Reflexed to Culture Not Indicated Normal [facility] Comment on above: Performed By: #### P GLU #### [facility] [address] [place] [address] Urobilinogen Qn (U) 0.2 {Munir'U}/dL Normal < 2.0 [facility] Comment on above: Performed By: #### P GLU #### [facility] [address] [place] [address] CNNURSEon 11-26-2022 CNNURSE Normal [facility] US MESENTERIC ARTERY CMPLT V LABon 11-26-2022 US MESENTERIC ARTERY CMPLT VAS LAB Normal [facility] Ambulatory Visit Summaryon 1 Ambulatory Visit Summary Normal [address] [place] [address] [place] [address]- \.br\ Medications\.br\ What How Much When Why [...] as needed for Pain Pickup at [id number]\.br\ Pharmacy Information\.br\ [id number]: [address], [place] [id number] [phone]\.br\ Allergies\.br\ NSAIDs (Unknown)\.br\ codeine (unknown)\.br\ Problems\.br\ Ongoing [...] Metabolic syndrome\.br\ PCOS- polycystic ovary syndrome\.br\ \.br\ [facility] CNPNon 11-25-2022 CNPN Normal [facility] Family Medicine Office/Clini c Noteon 11-25-2022 Family Medicine Office/Clinic Note Normal [facility] Comment on above: Result Comment: Elec tronically Signed By: Jaquan Paula\.br\Date and Time Signed: 11/25/22 13:56 EDT Population Healthon 11-25-19 Population Health Normal [facility] Basic metabolic 2000 panelon 11-23-2022 Anion gap [Moles/Vol] 12 mmol/L Normal 11-02 [facility] Comment on above: Order Comment: Speci men Type: BLOOD SPECIMENOrdering Facility: [facility] Address: [address] [place] [address] Performed By: #### 2 4321-2, 83625-2, ####[facility]ORATORY[facility] [id number] [facility] [place] [address] [place] Calcium [Mass/Vol] 8.4 mg/dL Low 8.5-10.2 [facility] Comment on above: Order Comment: Speci men Type: BLOOD SPECIMENOrdering Facility: [facility] Address: [address] [place] [address] Performed By: #### 2 4321-2, 70645-8, ####[facility] [id number] [place] [address] [place] Chloride [Moles/Vol] 107 mmol/L High 97-105 [facility] Comment on above: Order Comment: Speci men Type: BLOOD SPECIMENOrdering Facility: [facility] Address: [address] [place] [address] Performed By: #### 2 4321-2, 31943-7, ####[facility] [id number] [place] [address] [place] CO2 [Moles/Vol] 19 mmol/L Low 22-30 [facility] Comment on above: Order Comment: Speci men Type: BLOOD SPECIMENOrdering Facility: [facility] Address: [address] [place] [address] Performed By: #### 2 4321-2, 01408-6, ####[facility] [id number] [facility] [place] [address] [place] Creatinine [Mass/Vol] 0.71 mg/dL Normal 0.58-0.96 [facility] Comment on above: Order Comment: Speci men Type: BLOOD SPECIMENOrdering Facility: [facility] Address: [address] [place] [address] Performed By: #### 2 4321-2, 98455-9, ####[facility]ORATORY[facility] [id number] [place] [address] [place] Creatinine and Glomerular filtration rate.predicted panel (S/P/Bld) 115 mL/min/1.73m??? Normal >=60 [facility] Comment on above: Order Comment: Geraldo marrero Type: BLOOD SPECIMENOrdering Facility: [facility] Address: [address] [place] [address] Result Comment: Jessica mated Glomerular Filtration Rate [...] actual GFR. Performed By: #### 2 4321-2, 22675-9, ####[facility] LABORATORYCLIA [id number] [facility] [place] [address] [place] Glucose [Mass/Vol] 105 mg/dL High 74-99 [facility] Comment on above: Order Comment: Geraldo marrero Type: BLOOD SPECIMENOrdering Facility: [facility] Address: [address] [place] [address] Result Comment: The [place] [employer] (ADA) provides guidance for cutoff [...] Standards of Medical Care in Diabetes 2016, [place] [employer]. Diabetes Care. 2016.39(Suppl 1). Performed By: #### 2 4321-2, 23387-4, ####[facility] LABORATORYCLIA [id number] [facility] [place] [address] [place] Potassium [Moles/Vol] 3.8 mmol/L Normal 3.7-5.1 [facility] Comment on above: Order Comment: Speci men Type: BLOOD SPECIMENOrdering Facility: [facility] Address: [address] [place] [address] Performed By: #### 2 4321-2, 02187-9, ####[facility] LABORATORYCLIA [id number] [place] [address] [place] Sodium [Moles/Vol] 138 mmol/L Normal 136-144 [facility] Comment on above: Order Comment: Speci men Type: BLOOD SPECIMENOrdering Facility: [facility] Address: [address] [place] [address] Performed By: #### 2 4321-2, 67118-4, ####[facility] [id number] [place] [address] [place] Urea nitrogen [Mass/Vol] 7 mg/dL Normal 7-21 [facility] Comment on above: Order Comment: Speci men Type: BLOOD SPECIMENOrdering Facility: [facility] Address: [address] [place] [address] Performed By: #### 2 4321-2, 10218-1, ####[facility] LABORATORYIA [id number] [place] [address] [place] CASE MGT INIT ASSESon 2022 CASE MGT INIT ASS Normal [facility] CBC panel Auto (Bld)on 11-23 Erythrocyte distribution width (RBC) [Ratio] 13.6 % Normal 11.5-15.0 [facility] Comment on above: Order Comment: Speci men Type: BLOOD SPECIMENOrdering Facility: [facility] Address: [address] [place] [address] Performed By: #### 5 8410-2 ####[facility] LABORATORYIA [id number] [place] [address] [place] Hematocrit (Bld) [Volume fraction] 36.4 % Normal 36.0-46.0 [facility] Comment on above: Order Comment: Speci men Type: BLOOD SPECIMENOrdering Facility: [facility] Address: [address] [place] [address] Performed By: #### 5 8410-2 ####[facility] [id number] [place] [address] [place] Hemoglobin (Bld) [Mass/Vol] 11.8 g/dL Normal 11.5-15.5 [facility] Comment on above: Order Comment: Speci men Type: BLOOD SPECIMENOrdering Facility: [facility] Address: [address] [place] [address] Performed By: #### 5 8410-2 ####[facility] [id number] [place] [address] [place] MCH (RBC) [Entitic mass] 30.4 pg Normal 26.0-34.0 [facility] Comment on above: Order Comment: Speci men Type: BLOOD SPECIMENOrdering Facility: [facility] Address: [address] [place] [address] Performed By: #### 5 8410-2 ####[facility] [id number] [address] [place] MCHC (RBC) [Mass/Vol] 32.4 g/dL Normal 30.5-36.0 [facility] Comment on above: Order Comment: Speci men Type: BLOOD SPECIMENOrdering Facility: [facility] Address: [address] [place] [address] Performed By: #### 5 8410-2 ####[facility] [id number] [address] [place] MCV (RBC) [Entitic vol] 93.8 fL Normal 80.0-100.0 [facility] Comment on above: Order Comment: Speci men Type: BLOOD SPECIMENOrdering Facility: [facility] Address: [address] [place] [address] Performed By: #### 5 8410-2 ####[facility] [id number] [place] [id number] [place] Nucleated RBC (Bld) [#/Vol] 10*3/uL Normal <0.01 [facility] Comment on above: Order Comment: Speci men Type: BLOOD SPECIMENOrdering Facility: [facility] Address: [address] [place] [address] Performed By: #### 5 8410-2 ####[facility] LABORATORYCLIA [id number] [facility] [place] [place] [address] [place] Platelet mean volume (Bld) [Entitic vol] 10.9 fL Normal 9.0-12.7 [facility] Comment on above: Order Comment: Speci men Type: BLOOD SPECIMENOrdering Facility: [facility] Address: [address] [place] [address] Performed By: #### 5 8410-2 ####[facility] LABORATORYCLIA [id number] [place] [address] [place] Platelets (Bld) [#/Vol] 217 10*3/uL Normal 150-400 [facility] Comment on above: Order Comment: Speci men Type: BLOOD SPECIMENOrdering Facility: [facility] Address: [address] [place] [address] Performed By: #### 5 8410-2 ####[facility] LABORATORYCLIA [id number] [place] [address] [place] RBC (Bld) [#/Vol] 3.88 10*6/uL Low 3.90-5.20 [facility] Comment on above: Order Comment: Speci men Type: BLOOD SPECIMENOrdering Facility: [facility] Address: [address] [place] [address] Performed By: #### 5 8410-2 ####[facility] LABORATORYCLIA [id number] [facility] [place] [address] [place] WBC (Bld) [#/Vol] 3.45 10*3/uL Low 3.70-11.00 [facility] Comment on above: Order Comment: Speci men Type: BLOOD SPECIMENOrdering Facility: [facility] Address: [address] [place] [address] Performed By: #### 5 8410-2 ####[facility] LABORATORYIA [id number] [facility] [place] [address] [place] CNDSon 11-23-2022 CNDS Normal [facility] CNPNon 11-23-2022 CNPN Normal [facility] CONSULTon 11-23-2022 CONSULT Normal [facility] Hepatic function 2000 panelo n 11-23-2022 Albumin [Mass/Vol] 3.5 g/dL Low 3.9-4.9 [facility] Comment on above: Order Comment: Speci men Type: BLOOD SPECIMENOrdering Facility: [facility] Address: [address] [place] [address] Performed By: #### 2 4321-2, 06145-6, ####[facility] L[facility]ORE[facility] [id number] [place] [address] [place] ALP [Catalytic activity/Vol] 58 U/L Normal 34-123 [facility] Comment on above: Order Comment: Speci men Type: BLOOD SPECIMENOrdering Facility: [facility] Address: [address] [place] [address] Performed By: #### 2 4321-2, 18382-6, ####[facility] LEM[facility]OREIA [id number] [place] [address] [place] ALT [Catalytic activity/Vol] 17 U/L Normal 7-38 [facility] Comment on above: Order Comment: Speci men Type: BLOOD SPECIMENOrdering Facility: [facility] Address: [address] [place] [address] Performed By: #### 2 4321-2, 01408-5, ####[facility] LABORATORYIA [id number] [facility] [place] [address] [place] AST [Catalytic activity/Vol] 34 U/L Normal 13-35 [facility] Comment on above: Order Comment: Speci men Type: BLOOD SPECIMENOrdering Facility: [facility] Address: [address] [place] [address] Performed By: #### 2 4321-2, 98358-9, ####[facility] LABORATORYIA [id number] [place] [address] [place] Bilirubin [Mass/Vol] 0.4 mg/dL Normal 0.2-1.3 [facility] Comment on above: Order Comment: Speci men Type: BLOOD SPECIMENOrdering Facility: [facility] Address: [address] [place] [address] Performed By: #### 2 4321-2, 40599-0, ####[facility] [id number] [place] [address] [place] Bilirubin.conjugate d [Mass/Vol] mg/dL Normal <0.2 [facility] Comment on above: Order Comment: Speci men Type: BLOOD SPECIMENOrdering Facility: [facility] Address: [address] [place] [address] Performed By: #### 2 4321-2, 73588-8, ####[facility] [id number] [place] [address] [place] Protein [Mass/Vol] 5.9 g/dL Low 6.3-8.0 [facility] Comment on above: Order Comment: Speci men Type: BLOOD SPECIMENOrdering Facility: [facility] Address: [address] [place] [address] Performed By: #### 2 4321-2, 28453-3, ####[facility] [id number] [facility] [place] [address] [place] Magnesium SerPl-mCncon 11-23 Magnesium [Mass/Vol] 1.8 mg/dL Normal 1.7-2.3 [facility] Comment on above: Order Comment: Speci men Type: BLOOD SPECIMENOrdering Facility: [facility] Address: [address] [place] [address] Performed By: #### 2 4321-2, 35257-7, ####[facility] LABORATORYIA [id number] [place] [address] [place] CBC W Auto Differential pane l (Bld)on 11-22-2022 Basophils (Bld) [#/Vol] 0.03 10*3/uL Normal <0.11 [facility] Comment on above: Order Comment: Speci men Type: BLOOD SPECIMENOrdering Facility: [facility] Address: [address] [place] [address] Performed By: #### 5 7021-8 ####[facility] LABORATORYCLIA [id number] [place] [address] [place] Basophils/100 WBC (Bld) 0.6 % Normal [facility] Comment on above: Order Comment: Speci men Type: BLOOD SPECIMENOrdering Facility: [facility] Address: [address] [place] [address] Performed By: #### 5 7021-8 ####[facility] [id number] [address] [place] Differential cell count method Nom (Bld) Auto Normal [facility] Comment on above: Order Comment: Speci men Type: BLOOD SPECIMENOrdering Facility: [facility] Address: [address] [place] [address] Performed By: #### 5 7021-8 ####[facility] [id number] [place] [address] [place] Eosinophils (Bld) [#/Vol] 0.08 10*3/uL Normal <0.46 [facility] Comment on above: Order Comment: Speci men Type: BLOOD SPECIMENOrdering Facility: [facility] Address: [address] [place] [address] Performed By: #### 5 7021-8 ####[facility] LABORATORYIA [id number] [address] [place] Eosinophils/100 WBC (Bld) 1.7 % Normal [facility] Comment on above: Order Comment: Speci men Type: BLOOD SPECIMENOrdering Facility: [facility] Address: [address] [place] [address] Performed By: #### 5 7021-8 ####[facility] [id number] [place] [address] [place] Erythrocyte distribution width (RBC) [Ratio] 13.4 % Normal 11.5-15.0 [facility] Comment on above: Order Comment: Speci men Type: BLOOD SPECIMENOrdering Facility: [facility] Address: [address] [place] [address] Performed By: #### 5 7021-8 ####[facility] [id number] [place] [address] [place] Hematocrit (Bld) [Volume fraction] 40.4 % Normal 36.0-46.0 [facility] Comment on above: Order Comment: Speci men Type: BLOOD SPECIMENOrdering Facility: [facility] Address: [address] [place] [address] Performed By: #### 5 7021-8 ####[facility] [id number] [place] [id number] [place] Hemoglobin (Bld) [Mass/Vol] 13.8 g/dL Normal 11.5-15.5 [facility] Comment on above: Order Comment: Speci men Type: BLOOD SPECIMENOrdering Facility: [facility] Address: [address] [place] [address] Performed By: #### 5 7021-8 ####[facility] [id number] [place] [id number] [place] Immature granulocytes (Bld) [#/Vol] 10*3/uL Normal <0.10 [facility] Comment on above: Order Comment: Speci men Type: BLOOD SPECIMENOrdering Facility: [facility] Address: [address] [place] [address] Performed By: #### 5 7021-8 ####[facility] [id number] [place] [id number] [place] Immature granulocytes/100 WBC (Bld) 0.2 % Normal [facility] Comment on above: Order Comment: Speci men Type: BLOOD SPECIMENOrdering Facility: [facility] Address: [address] [place] [address] Performed By: #### 5 7021-8 ####[facility] [id number] [place] [address] [place] Lymphocytes (Bld) [#/Vol] 2.01 10*3/uL Normal 1.00-4.00 [facility] Comment on above: Order Comment: Speci men Type: BLOOD SPECIMENOrdering Facility: [facility] Address: [address] [place] [address] Performed By: #### 5 7021-8 ####[facility] [id number] [address] [place] Lymphocytes/100 WBC (Bld) 42.2 % Normal [facility] Comment on above: Order Comment: Speci men Type: BLOOD SPECIMENOrdering Facility: [facility] Address: [address] [place] [address] Performed By: #### 5 7021-8 ####[facility] [id number] [place] [address] [place] MCH (RBC) [Entitic mass] 31.2 pg Normal 26.0-34.0 [facility] Comment on above: Order Comment: Speci men Type: BLOOD SPECIMENOrdering Facility: [facility] Address: [address] [place] [address] Performed By: #### 5 7021-8 ####[facility] [id number] [place] [id number] [place] MCHC (RBC) [Mass/Vol] 34.2 g/dL Normal 30.5-36.0 [facility] Comment on above: Order Comment: Speci men Type: BLOOD SPECIMENOrdering Facility: [facility] Address: [address] [place] [address] Performed By: #### 5 7021-8 ####[facility] LABORATORYIA [id number] [place] [address] [place] MCV (RBC) [Entitic vol] 91.4 fL Normal 80.0-100.0 [facility] Comment on above: Order Comment: Speci men Type: BLOOD SPECIMENOrdering Facility: [facility] Address: [address] [place] [address] Performed By: #### 5 7021-8 ####[facility] LABORATORYCLIA [id number] [place] [address] [place] Monocytes (Bld) [#/Vol] 0.25 10*3/uL Normal <0.87 [facility] Comment on above: Order Comment: Speci men Type: BLOOD SPECIMENOrdering Facility: [facility] Address: [address] [place] [address] Performed By: #### 5 7021-8 ####[facility] [id number] [place] [address] [facility] [place] Monocytes/100 WBC (Bld) 5.3 % Normal [facility] Comment on above: Order Comment: Speci men Type: BLOOD SPECIMENOrdering Facility: [facility] Address: [address] [place] [address] Performed By: #### 5 7021-8 ####[facility] LABORATORYIA [id number] [place] [id number] [place] Neutrophils (Bld) [#/Vol] 2.38 10*3/uL Normal 1.45-7.50 [facility] Comment on above: Order Comment: Speci men Type: BLOOD SPECIMENOrdering Facility: [facility] Address: [address] [place] [address] Performed By: #### 5 7021-8 ####[facility] LABORATORYCLIA [id number] [place] [address] [place] Neutrophils/100 WBC (Bld) 50.0 % Normal [facility] Comment on above: Order Comment: Speci men Type: BLOOD SPECIMENOrdering Facility: [facility] Address: [address] [place] [address] Performed By: #### 5 7021-8 ####[facility] LABORATORYCLIA [id number] [place] [address] [place] Nucleated RBC (Bld) [#/Vol] 10*3/uL Normal <0.01 [facility] Comment on above: Order Comment: Speci men Type: BLOOD SPECIMENOrdering Facility: [facility] Address: [address] [place] [address] Performed By: #### 5 7021-8 ####[facility] LABORATORYCLIA [id number] [place] [address] [place] Nucleated RBC/100 WBC (Bld) [Ratio] 0.0 /100 WBC Normal [facility] Comment on above: Order Comment: Speci men Type: BLOOD SPECIMENOrdering Facility: [facility] Address: [address] [place] [address] Performed By: #### 5 7021-8 ####[facility] LABORATORYIA [id number] [place] [address] [place] Platelet mean volume (Bld) [Entitic vol] 11.1 fL Normal 9.0-12.7 [facility] Comment on above: Order Comment: Speci men Type: BLOOD SPECIMENOrdering Facility: [facility] Address: [address] [place] [address] Performed By: #### 5 7021-8 ####[facility] [id number] [place] [address] [place] Platelets (Bld) [#/Vol] 282 10*3/uL Normal 150-400 [facility] Comment on above: Order Comment: Speci men Type: BLOOD SPECIMENOrdering Facility: [facility] Address: [address] [place] [address] Performed By: #### 5 7021-8 ####[facility] LABORATORYIA [id number] [place] [address] [place] RBC (Bld) [#/Vol] 4.42 10*6/uL Normal 3.90-5.20 [facility] Comment on above: Order Comment: Speci men Type: BLOOD SPECIMENOrdering Facility: [facility] Address: [address] [place] [address] Performed By: #### 5 7021-8 ####[facility] LABORATORYCLIA [id number] [facility] [place] [address] [place] WBC (Bld) [#/Vol] 4.76 10*3/uL Normal 3.70-11.00 [facility] Comment on above: Order Comment: Speci men Type: BLOOD SPECIMENOrdering Facility: [facility] Address: [address] [place] [address] Performed By: #### 5 7021-8 ####[facility] LABORATORYCLIA [id number] [facility] [place] [address] [place] CT ABD/PEL W IVCONon 023 CT ABD/PEL W IVCON Normal [facility] Comprehensive metabolic 2000 panelon 11-22-2022 Albumin [Mass/Vol] 4.4 g/dL Normal 3.9-4.9 [facility] Comment on above: Order Comment: Speci men Type: BLOOD SPECIMENOrdering Facility: [facility] Address: [address] [place] [address] Performed By: #### 1 9123-9, 12015-5, 3040-3 ####[facility] LABORATORYIA [id number] [facility] [place] [address] [place] ALP [Catalytic activity/Vol] 73 U/L Normal 34-123 [facility] Comment on above: Order Comment: Speci men Type: BLOOD SPECIMENOrdering Facility: [facility] Address: [address] [place] [address] Performed By: #### 1 9123-9, 16773-4, 3040-3 ####[facility] LABORATORYCLIA [id number] [facility] [place] [address] [place] ALT [Catalytic activity/Vol] 21 U/L Normal 7-38 [facility] Comment on above: Order Comment: Speci men Type: BLOOD SPECIMENOrdering Facility: [facility] Address: [address] [place] [address] Performed By: #### 1 9123-9, 99874-5, 3040-3 ####[facility] LABORATORYCLIA [id number] [place] [address] [place] Anion gap [Moles/Vol] 11 mmol/L Normal 9-18 [facility] Comment on above: Order Comment: Speci men Type: BLOOD SPECIMENOrdering Facility: [facility] Address: [address] [place] [address] Performed By: #### 1 9123-9, 95406-1, 0-3 ####[facility] LABORATORYCLIA [id number] [place] [address] [place] AST [Catalytic activity/Vol] 39 U/L High 13-35 [facility] Comment on above: Order Comment: Speci men Type: BLOOD SPECIMENOrdering Facility: [facility] Address: [address] [place] [address] Performed By: #### 1 9123-9, 12122-3, 0-3 ####[facility] [id number] [place] [address] [place] Bilirubin [Mass/Vol] 0.3 mg/dL Normal 0.2-1.3 [facility] Comment on above: Order Comment: Speci men Type: BLOOD SPECIMENOrdering Facility: [facility] Address: [address] [place] [address] Performed By: #### 1 9123-9, 40492-6, 0-3 ####[facility] [id number] [place] [address] [place] Calcium [Mass/Vol] 8.7 mg/dL Normal 8.5-10.2 [facility] Comment on above: Order Comment: Speci men Type: BLOOD SPECIMENOrdering Facility: [facility] Address: [address] [place] [address] Performed By: #### 1 9123-9, 16260-6, 3040-3 ####[facility] LABORATORYIA [id number] [place] [address] [place] Chloride [Moles/Vol] 106 mmol/L High 97-105 [facility] Comment on above: Order Comment: Speci men Type: BLOOD SPECIMENOrdering Facility: [facility] Address: [address] [place] [address] Performed By: #### 1 9123-9, 94357-2, 3039-3 ####[facility] LABORATORYCLIA [id number] [facility] [place] [address] [place] CO2 [Moles/Vol] 22 mmol/L Normal 22-30 [facility] Comment on above: Order Comment: Speci men Type: BLOOD SPECIMENOrdering Facility: [facility] Address: [address] [place] [address] Performed By: #### 1 9123-9, , 3 ####[facility] LABORATORYCLIA [id number] [place] [address] [place] Creatinine [Mass/Vol] 0.80 mg/dL Normal 0.58-0.96 [facility] Comment on above: Order Comment: Speci men Type: BLOOD SPECIMENOrdering Facility: [facility] Address: [address] [place] [address] Performed By: #### 1 9123-9, , 3 ####[facility] LABORATORYIA [id number] [place] [address] [facility] [place] Creatinine and Glomerular filtration rate.predicted panel (S/P/Bld) 100 mL/min/1.73m??? Normal >=60 [facility] l Comment on above: Order Comment: Speci men Type: BLOOD SPECIMENOrdering Facility: [facility] Address: [address] [place], [place] [id number] Result Comment: Jessica mated Glomerular Filtration Rate [...] actual GFR. Performed By: #### 1 9123-9, 16225-0, 0-3 ####[facility] [id number] [facility] [place] [address] [place] Glucose [Mass/Vol] 88 mg/dL Normal 74-99 [facility] Comment on above: Order Comment: Speci men Type: BLOOD SPECIMENOrdering Facility: [facility] Address: [address] [place] [address] Result Comment: The [place] Diabetes [employer] (ADA) provides guidance for cutoff [...] Standards of Medical Care in Diabetes 2016, [place] [employer]. Diabetes Care. 2016.39(Suppl 1). Performed By: #### 1 9123-9, 26152-5, 0-3 ####[facility] [id number] [place] [address] [place] Potassium [Moles/Vol] 3.9 mmol/L Normal 3.7-5.1 [facility] Comment on above: Order Comment: Speci men Type: BLOOD SPECIMENOrdering Facility: [facility] Address: [address] [place] [address] Performed By: #### 1 9123-9, 52164-6, 0-3 ####[facility] [id number] [facility] [place] [place] [address] [place] Protein [Mass/Vol] 7.1 g/dL Normal 6.3-8.0 [facility] Comment on above: Order Comment: Speci men Type: BLOOD SPECIMENOrdering Facility: [facility] Address: [address] [place] [address] Performed By: #### 1 9123-9, 62681-5, 0-3 ####[facility] [id number] [facility] [place] [place] [address] [place] Sodium [Moles/Vol] 139 mmol/L Normal 136-144 [facility] Comment on above: Order Comment: Speci men Type: BLOOD SPECIMENOrdering Facility: [facility] Address: [address] [place] [address] Performed By: #### 1 9123-9, 79683-2, 0-3 ####[facility] [id number] [place] [address] [place] Urea nitrogen [Mass/Vol] 8 mg/dL Normal 7-21 [facility] Comment on above: Order Comment: Speci men Type: BLOOD SPECIMENOrdering Facility: [facility] Address: [address] [place] [address] Performed By: #### 1 9123-9, 57047-6, 3039-3 ####[facility] [id number] [place] [address] [place] ECG COMPLETEon 11-22-2022 ECG COMPLETE Normal [facility] ED NOTEon 11-22-2022 ED NOTE HNO ID: [id number] Author: Lady Garza RN Service: Emergency Medicine Author Type: Registered Nurse Type: ED Notes Filed: 11/22/2022 3:21 PM Note Text: Report to [facility] PRICE Normal [facility] ED PROV NOTEon 11-22-2022 ED PROV NOTE Normal [facility] HISTORY PHYSICALon HISTORY PHYSICAL Normal [facility] pital Lipase SerPl-cCncon 11-23-19 23 Lipase [Catalytic activity/Vol] 45 U/L Normal 16-61 [facility] Comment on above: Order Comment: Speci men Type: BLOOD SPECIMENOrdering Facility: [facility] Address: [address] [place] [address] Performed By: #### 1 9123-9, 19627-1, 0-3 ####[facility] LABORATORYIA [id number] [facility] [place] [place] [address] [place] Magnesium SerPl-mCncon 11-22 Magnesium [Mass/Vol] 1.9 mg/dL Normal 1.7-2.3 [facility] Comment on above: Order Comment: Speci men Type: BLOOD SPECIMENOrdering Facility: [facility] Address: [address] [place] [address] Performed By: #### 1 9123-9, 95503-1, 3040-3 ####[facility] [id number] [place] [address] [place] NURSING PROGon 11-22-2022 NURSING PROG Normal [facility] Urinalysis complete panel (U )on 11-22-2022 Bilirubin Ql (U) Negative Normal Negative [facility] Comment on above: Order Comment: Speci men Type: URINE SPECIMENOrdering Facility: [facility] Address: [address] [place] [address] Performed By: #### 2 4356-8 ####[facility] [id number] [place] [address] [place] Clarity (Unsp spec) Clear Normal Clear [facility] Comment on above: Order Comment: Speci men Type: URINE SPECIMENOrdering Facility: [facility] Address: [address] [place] [address] Performed By: #### 2 4356-8 ####[facility] [id number] [place] [address] [place] [facility] Color (U) Light Yellow Normal yellow [facility] Comment on above: Order Comment: Speci men Type: URINE SPECIMENOrdering Facility: [facility] Address: [address] [place] [address] Performed By: #### 2 4356-8 ####[facility] [id number] [place] [address] [place] Epithelial cells LM.HPF (Urine sed) [#/Area] Few Normal [facility] Comment on above: Order Comment: Speci men Type: URINE SPECIMENOrdering Facility: [facility] Address: [address] [place] [address] Performed By: #### 2 4356-8 ####[facility] LABORATORYIA [id number] [place], [place] [address] [place] [address] [place] Glucose Test strip (U) [Mass/Vol] Negative Normal Trace, Negative [facility] Comment on above: Order Comment: Speci men Type: URINE SPECIMENOrdering Facility: [facility] Address: [address] [place] [address] Performed By: #### 2 4356-8 ####[facility] LABORATORYIA [id number] [place] [address] [place] Hemoglobin Ql (U) Negative Normal Negative, Trace [facility] Comment on above: Order Comment: Speci men Type: URINE SPECIMENOrdering Facility: [facility] Address: [address] [place] [address] Performed By: #### 2 4356-8 ####[facility] [id number] [place] [address] [place] Ketones Ql (U) Negative Normal Negative, Trace [facility] Comment on above: Order Comment: Speci men Type: URINE SPECIMENOrdering Facility: [facility] Address: [address] [place] [address] Performed By: #### 2 4356-8 ####[facility] LEMOOREIA [id number] [place] [address] [facility] [place] Leukocyte esterase Test strip Ql (U) Negative Normal Negative, 25 Patito/uL [facility] Comment on above: Order Comment: Speci men Type: URINE SPECIMENOrdering Facility: [facility] Address: [address] [place] [address] Performed By: #### 2 4356-8 ####[facility] LABORATORYIA [id number] [place] [address] [place] Nitrite Ql (U) Negative Normal Negative [facility] Comment on above: Order Comment: Speci men Type: URINE SPECIMENOrdering Facility: [facility] Address: [address] [place] [address] Performed By: #### 2 4356-8 ####[facility] [id number] [place] [address] [place] pH (U) 7.0 [pH] Normal 5.0-8.0 [facility] Comment on above: Order Comment: Speci men Type: URINE SPECIMENOrdering Facility: [facility] Address: [address] [place] [address] Performed By: #### 2 4356-8 ####[facility] [id number] [place] [address] [place] Protein (U) [Mass/Vol] Negative Normal Trace, Negative [facility] Comment on above: Order Comment: Speci men Type: URINE SPECIMENOrdering Facility: [facility] Address: [address] [place] [address] Performed By: #### 2 4356-8 ####[facility] [id number] [place] [id number] [place] RBC LM.HPF (Urine sed) [#/Area] 0-3 /HPF Normal 0-3 /HPF [facility] Comment on above: Order Comment: Speci men Type: URINE SPECIMENOrdering Facility: [facility] Address: [address] [place] [address] Performed By: #### 2 4356-8 ####[facility] [id number] [place] [address] [place] Specific gravity (U) [Rel density] 1.020 Normal 1.005-1.030 [facility] Comment on above: Order Comment: Speci men Type: URINE SPECIMENOrdering Facility: [facility] Address: [address] [place] [address] Performed By: #### 2 4356-8 ####[facility] [id number] [place] [address] [place] Urobilinogen Ql (U) Normal Normal Negative [facility] Comment on above: Order Comment: Speci men Type: URINE SPECIMENOrdering Facility: [facility] Address: [address] [place] [address] Performed By: #### 2 4356-8 ####[facility] LABORATORYCLIA [id number] [place] [address] [place] WBC LM.HPF (Urine sed) [#/Area] 0-5 /HPF Normal 0-5 /HPF [facility] Comment on above: Order Comment: Speci men Type: URINE SPECIMENOrdering Facility: [facility] Address: [address] [place] [address] Performed By: #### 2 4356-8 ####[facility] SERVICESCLIA [id number] [place] [address] [place] XR CHEST 2V FRONTAL/LATon XR CHEST 2V FRONTAL/LAT Normal [facility] CNPNon 11-20-2022 CNPN Normal [facility] Basic metabolic 2000 panelon 11-19-2022 Anion gap [Moles/Vol] 11 mmol/L Normal 9-18 [facility] Comment on above: Order Comment: Speci men Type: BLOOD SPECIMENOrdering Facility: [facility] Address: [address] [place] [id number] Performed By: #### 1 9123-9, 63238-7, 2776- ####[facility] LABORATORYCLIA [id number] [place] [address] [place] Calcium [Mass/Vol] 8.9 mg/dL Normal 8.5-10.2 [facility] Comment on above: Order Comment: Speci men Type: BLOOD SPECIMENOrdering Facility: [facility] Address: [address] [place] [id number] Performed By: #### 1 9123-9, 18710-5, 277- ####[facility] LABORATORYCLIA [id number] [place] [address] [place] Chloride [Moles/Vol] 104 mmol/L Normal 97-105 [facility] Comment on above: Order Comment: Speci men Type: BLOOD SPECIMENOrdering Facility: [facility] Address: [address] [place] [address] Performed By: #### 1 91239, , 2776-02 ####[facility] LABORATORYCLIA [id number] [place] [address] [place] CO2 [Moles/Vol] 25 mmol/L Normal 22-30 [facility] Comment on above: Order Comment: Speci men Type: BLOOD SPECIMENOrdering Facility: [facility] Address: [address] [place] [address] Performed By: #### 1 9123-9, , 2776-02 ####[facility] LABORATORYCLIA [id number] [place] [address] [place] Creatinine [Mass/Vol] 0.82 mg/dL Normal 0.58-0.96 [facility] Comment on above: Order Comment: Speci men Type: BLOOD SPECIMENOrdering Facility: [facility] Address: [address] [place] [address] Performed By: #### 1 9123-9, , 2776-02 ####[facility] LABORATORYCLIA [id number] [address] STATES [facility] Creatinine and Glomerular filtration rate.predicted panel (S/P/Bld) 97 mL/min/1.73m??? Normal >=60 [facility] Comment on above: Order Comment: Speci men Type: BLOOD SPECIMENOrdering Facility: [facility] Address: [address] [place] [address] Result Comment: Jessica mated Glomerular Filtration Rate [...] actual GFR. Performed By: #### 1 9123-9, , 2776-02 ####[facility] LABORATORYCLIA [id number] [place] [address] [place] Glucose [Mass/Vol] 80 mg/dL Normal 74-99 [facility] Comment on above: Order Comment: Speci men Type: BLOOD SPECIMENOrdering Facility: [facility] Address: [place] [address] Result Comment: The [place] [employer] (ADA) provides guidance for cutoff [...] Standards of Medical Care in Diabetes 2016, [place] [employer]. Diabetes Care. 2016.39(Suppl 1). Performed By: #### 1 9123-9, 42525-5, 2776- ####[facility] LABORATORYCLIA [id number] [place] [address] [place] Potassium [Moles/Vol] 4.2 mmol/L Normal 3.7-5.1 [facility] Comment on above: Order Comment: Speci elida Type: BLOOD SPECIMENOrdering Facility: [facility] Address: [address] [place] [address] Performed By: #### 1 9123-9, 10273-7, 2776-02 ####[facility] LABORATORYCLIA [id number] [place] [address] [place] Sodium [Moles/Vol] 140 mmol/L Normal 136-144 [facility] Comment on above: Order Comment: Speci men Type: BLOOD SPECIMENOrdering Facility: [facility] Address: [address] [place] [address] Performed By: #### 1 9123-9, 25417-7, 2776-02 ####[facility] LABORATORYCLIA [id number] [place] [address] [place] Urea nitrogen [Mass/Vol] 6 mg/dL Low 7-21 [facility] Comment on above: Order Comment: Speci men Type: BLOOD SPECIMENOrdering Facility: [facility] Address: [place] [address] Performed By: #### 1 9123-9, 37125-0, 2777-1 ####[facility] LABORATORYCLIA [id number] [address] [place] CBC panel Auto (Bld)on 11-19 Erythrocyte distribution width (RBC) [Ratio] 13.2 % Normal 11.5-15.0 [facility] Comment on above: Order Comment: Speci men Type: BLOOD SPECIMENOrdering Facility: [facility] Address: [address] [place] [address] Performed By: #### 5 8410-2 ####[facility] LABORATORYCLIA [id number] [address] Hematocrit (Bld) [Volume fraction] 36.3 % Normal 36.0-46.0 [facility] Comment on above: Order Comment: Speci men Type: BLOOD SPECIMENOrdering Facility: [facility] Address: [address] [place] [address] Performed By: #### 5 8410-2 ####[facility] LABORATORYCLIA [id number] [address] [place] Hemoglobin (Bld) [Mass/Vol] 12.4 g/dL Normal 11.5-15.5 [facility] Comment on above: Order Comment: Speci men Type: BLOOD SPECIMENOrdering Facility: [facility] Address: [address] [place] [address] Performed By: #### 5 8410-2 ####[facility] LABORATORYCLIA [id number] [place] [address] [facility] [place] MCH (RBC) [Entitic mass] 30.4 pg Normal 26.0-34.0 [facility] Comment on above: Order Comment: Speci men Type: BLOOD SPECIMENOrdering Facility: [facility] Address: [address] [place] [address] Performed By: #### 5 8410-2 ####[facility] LABORATORYCLIA [id number] [address] [place] MCHC (RBC) [Mass/Vol] 34.2 g/dL Normal 30.5-36.0 [facility] Comment on above: Order Comment: Speci men Type: BLOOD SPECIMENOrdering Facility: [facility] Address: [address] [place] [address] Performed By: #### 5 8410-2 ####[facility] LABORATORYCLIA [id number] [address] [place] MCV (RBC) [Entitic vol] 89.0 fL Normal 80.0-100.0 [facility] Comment on above: Order Comment: Speci men Type: BLOOD SPECIMENOrdering Facility: [facility] Address: [address] [place] [address] Performed By: #### 5 8410-2 ####[facility] LABORATORYCLIA [id number] [address] Nucleated RBC (Bld) [#/Vol] 10*3/uL Normal <0.01 [facility] Comment on above: Order Comment: Speci men Type: BLOOD SPECIMENOrdering Facility: [facility] Address: [address] [place] [address] Performed By: #### 5 8410-2 ####[facility] LABORATORYCLIA [id number] [place] [address] [place] Platelet mean volume (Bld) [Entitic vol] 11.3 fL Normal 9.0-12.7 [facility] Comment on above: Order Comment: Speci men Type: BLOOD SPECIMENOrdering Facility: [facility] Address: [address] [place] [address] Performed By: #### 5 8410-2 ####[facility] LABORATORYCLIA [id number] [address] [place] Platelets (Bld) [#/Vol] 239 10*3/uL Normal 150-400 [facility] Comment on above: Order Comment: Speci men Type: BLOOD SPECIMENOrdering Facility: [facility] Address: [address] [place] [address] Performed By: #### 5 8410-2 ####[facility] LABORATORYCLIA [id number] [place] [address] [facility] [place] RBC (Bld) [#/Vol] 4.08 10*6/uL Normal 3.90-5.20 [facility] Comment on above: Order Comment: Speci men Type: BLOOD SPECIMENOrdering Facility: [facility] Address: [address] [place] [address] Performed By: #### 5 8410-2 ####[facility] LABORATORYCLIA [id number] [place] [address] [facility] WBC (Bld) [#/Vol] 2.99 10*3/uL Low 3.70-11.00 [facility] Comment on above: Order Comment: Speci men Type: BLOOD SPECIMENOrdering Facility: [facility] Address: [address] [place] [address] Performed By: #### 5 8410-2 ####[facility] LABORATORYCLIA [id number] [address] CNDSon 11-19-2022 CNDS Normal [facility] Magnesium SerPl-ncon 11-19 Magnesium [Mass/Vol] 1.9 mg/dL Normal 1.7-2.3 [facility] Comment on above: Order Comment: Speci men Type: BLOOD SPECIMENOrdering Facility: [facility] Address: [address] [place] [address] Performed By: #### 1 9123-9, 17404-5, 2777-1 ####[facility] LABORATORYCLIA [id number] [place] [address] [facility] [place] NURSING PROGon 11-19-2022 NURSING PROG Normal [facility] Phosphate SerPl-mCncon 11-19 Phosphate [Mass/Vol] 4.1 mg/dL Normal 2.7-4.8 [facility] Comment on above: Order Comment: Speci men Type: BLOOD SPECIMENOrdering Facility: [facility] Address: [address] [place] [address] Performed By: #### 1 9123-9, 31857-9, 2777-1 ####[facility] LABORATORYCLIA [id number] [address] Basic metabolic 2000 panelon 11-18-2022 Anion gap [Moles/Vol] 10 mmol/L Normal 9-18 [facility] Comment on above: Order Comment: Speci men Type: BLOOD SPECIMENOrdering Facility: [facility] Address: [address] [place] [address] Performed By: #### 2 4321-2 ####[facility] LABORATORYCLIA [id number] [place] [address] [place] Calcium [Mass/Vol] 8.8 mg/dL Normal 8.5-10.2 [facility] Comment on above: Order Comment: Speci men Type: BLOOD SPECIMENOrdering Facility: [facility] Address: [address] [place] [address] Performed By: #### 2 4321-2 ####[facility] LABORATORYCLIA [id number] [place] [address] [place] Chloride [Moles/Vol] 105 mmol/L Normal 97-105 [facility] Comment on above: Order Comment: Speci men Type: BLOOD SPECIMENOrdering Facility: [facility] Address: [address] [place] [address] Performed By: #### 2 4321-2 ####[facility] LABORATORYCLIA [id number] [place] [address] [place] CO2 [Moles/Vol] 22 mmol/L Normal 22-30 [facility] Comment on above: Order Comment: Speci men Type: BLOOD SPECIMENOrdering Facility: [facility] Address: [address] [place] [address] Performed By: #### 2 4321-2 ####[facility] LABORATORYCLIA [id number] [place] [address] [place] Creatinine [Mass/Vol] 0.61 mg/dL Normal 0.58-0.96 [facility] Comment on above: Order Comment: Speci men Type: BLOOD SPECIMENOrdering Facility: [facility] Address: [address] [place] [address] Performed By: #### 2 4321-2 ####[facility] LABORATORYCLIA [id number] [place] [address] [place] Creatinine and Glomerular filtration rate.predicted panel (S/P/Bld) 121 mL/min/1.73m??? Normal >=60 [facility] Comment on above: Order Comment: Geraldo marrero Type: BLOOD SPECIMENOrdering Facility: [facility] Address: [address] [place] [address] Result Comment: Jessica mated Glomerular Filtration Rate [...] actual GFR. Performed By: #### 2 4321-2 ####[facility] LABORATORYCLIA [id number] [place] [address] [place] Glucose [Mass/Vol] 115 mg/dL High 74-99 [facility] Comment on above: Order Comment: Geraldo marrero Type: BLOOD SPECIMENOrdering Facility: [facility] Address: [address] [place] [address] Result Comment: The [place] Diabetes [employer] (ADA) provides guidance for cutoff [...] Standards of Medical Care in Diabetes 2016, [place] [employer]. Diabetes Care. 2016.39(Suppl 1). Performed By: #### 2 4321-2 ####[facility] LABORATORYCLIA [id number] [place] [address] [place] Potassium [Moles/Vol] 4.2 mmol/L Normal 3.7-5.1 [facility] Comment on above: Order Comment: Speci men Type: BLOOD SPECIMENOrdering Facility: [facility] Address: [address] [place] [address] Performed By: #### 2 4321-2 ####[facility] LABORATORYCLIA [id number] [place] [address] [place] Sodium [Moles/Vol] 137 mmol/L Normal 136-144 [facility] Comment on above: Order Comment: Speci men Type: BLOOD SPECIMENOrdering Facility: [facility] Address: [address] [place] [address] Performed By: #### 2 4321-2 ####[facility] LABORATORYCLIA [id number] [place] [address] [place] Urea nitrogen [Mass/Vol] 6 mg/dL Low 7-21 [facility] Comment on above: Order Comment: Speci men Type: BLOOD SPECIMENOrdering Facility: [facility] Address: [address] [place] [address] Performed By: #### 2 4321-2 ####[facility] LABORATORYCLIA [id number] [place] [address] [place] CASE MGT INIT ASSESon 2022 CASE MGT INIT ASSES Normal [facility] CBC panel Auto (Bld)on 11-18 Erythrocyte distribution width (RBC) [Ratio] 13.0 % Normal 11.5-15.0 [facility] Comment on above: Order Comment: Speci men Type: BLOOD SPECIMENOrdering Facility: [facility] Address: [address] [place] [address] Performed By: #### 5 8410-2 ####[facility] LABORATORYCLIA [id number] [address] [place] Hematocrit (Bld) [Volume fraction] 35.7 % Low 36.0-46.0 [facility] Comment on above: Order Comment: Speci men Type: BLOOD SPECIMENOrdering Facility: [facility] Address: [address] [place] [address] Performed By: #### 5 8410-2 ####[facility] LABORATORYCLIA [id number] [place] [address] [place] Hemoglobin (Bld) [Mass/Vol] 12.3 g/dL Normal 11.5-15.5 [facility] Comment on above: Order Comment: Speci men Type: BLOOD SPECIMENOrdering Facility: [facility] Address: [address] [place] [address] Performed By: #### 5 8410-2 ####[facility] LABORATORYCLIA [id number] [place] [address] [place] MCH (RBC) [Entitic mass] 31.1 pg Normal 26.0-34.0 [facility] Comment on above: Order Comment: Speci men Type: BLOOD SPECIMENOrdering Facility: [facility] Address: [address] [place] [address] Performed By: #### 5 8410-2 ####[facility] LABORATORYCLIA [id number] [address] [place] [facility] MCHC (RBC) [Mass/Vol] 34.5 g/dL Normal 30.5-36.0 [facility] Comment on above: Order Comment: Speci men Type: BLOOD SPECIMENOrdering Facility: [facility] Address: [address] [place] [address] Performed By: #### 5 8410-2 ####[facility] LABORATORYCLIA [id number] [address] [place] MCV (RBC) [Entitic vol] 90.2 fL Normal 80.0-100.0 [facility] Comment on above: Order Comment: Speci men Type: BLOOD SPECIMENOrdering Facility: [facility] Address: [address] [place] [address] Performed By: #### 5 8410-2 ####[facility] LABORATORYCLIA [id number] [address] Nucleated RBC (Bld) [#/Vol] 10*3/uL Normal <0.01 [facility] Comment on above: Order Comment: Speci men Type: BLOOD SPECIMENOrdering Facility: [facility] Address: [address] [place] [address] Performed By: #### 5 8410-2 ####[facility] LABORATORYCLIA [id number] [place] [address] [place] [facility] Platelet mean volume (Bld) [Entitic vol] 11.2 fL Normal 9.0-12.7 [facility] Comment on above: Order Comment: Speci men Type: BLOOD SPECIMENOrdering Facility: [facility] Address: [address] [place] [address] Performed By: #### 5 8410-2 ####[facility] LABORATORYCLIA [id number] [place] [address] [place] Platelets (Bld) [#/Vol] 214 10*3/uL Normal 150-400 [facility] Comment on above: Order Comment: Speci men Type: BLOOD SPECIMENOrdering Facility: [facility] Address: [address] [place] [address] Performed By: #### 5 8410-2 ####[facility] LABORATORYCLIA [id number] [place] [address] [place] RBC (Bld) [#/Vol] 3.96 10*6/uL Normal 3.90-5.20 [facility] Comment on above: Order Comment: Speci men Type: BLOOD SPECIMENOrdering Facility: [facility] Address: [address] [place] [address] Performed By: #### 5 8410-2 ####[facility] LABORATORYCLIA [id number] [place] [address] [place] WBC (Bld) [#/Vol] 3.48 10*3/uL Low 3.70-11.00 [facility] Comment on above: Order Comment: Speci men Type: BLOOD SPECIMENOrdering Facility: [facility] Address: [address] [place] [address] Performed By: #### 5 8410-2 ####[facility] LABORATORYCLIA [id number] [address] [place] NURSING PROGon 10-04-2023 NURSING PROG Normal [facility] Urinalysis complete panel (U )on 11-18-2022 Bacteria LM.HPF (Urine sed) [#/Area] Rare Abnormal None Seen [facility] Comment on above: Order Comment: Speci men Type: URINE SPECIMENOrdering Facility: [facility] Address: [address] [place] [address] Performed By: #### 2 4356-8 ####[facility] LABORATORYCLIA [id number] [place] [address] [place] Bilirubin Ql (U) Negative Normal Negative [facility] Comment on above: Order Comment: Speci men Type: URINE SPECIMENOrdering Facility: [facility] Address: [address] [place] [address] Performed By: #### 2 4356-8 ####[facility] LABORATORYCLIA [id number] [place] [address] [place] Clarity (Unsp spec) Clear Normal Clear [facility] Comment on above: Order Comment: Speci men Type: URINE SPECIMENOrdering Facility: [facility] Address: [address] [place] [address] Performed By: #### 2 4356-8 ####[facility] LABORATORYCLIA [id number] [address] [place] Color (U) Colorless Normal Yellow [facility] Comment on above: Order Comment: Speci men Type: URINE SPECIMENOrdering Facility: [facility] Address: [address] [place] [address] Performed By: #### 2 4356-8 ####[facility] LABORATORYCLIA [id number] [place] [address] [place] Epithelial cells LM.HPF (Urine sed) [#/Area] Few Normal [facility] Comment on above: Order Comment: Speci men Type: URINE SPECIMENOrdering Facility: [facility] Address: [address] [place] [address] Performed By: #### 2 4356-8 ####[facility] LABORATORYCLIA [id number] [address] Glucose Test strip (U) [Mass/Vol] Negative Normal Trace, Negative [facility] Comment on above: Order Comment: Speci men Type: URINE SPECIMENOrdering Facility: [facility] Address: [address] [place] [address] Performed By: #### 2 4356-8 ####[facility] LABORATORYCLIA [id number] [place] [address] [place] Hemoglobin Ql (U) Negative Normal Negative, Trace Fa [facility] Comment on above: Order Comment: Speci men Type: URINE SPECIMENOrdering Facility: [facility] Address: [address] [place] [address] Performed By: #### 2 6-8 ####[facility] LABORATORYCLIA [id number] [address] [place] Ketones Ql (U) Negative Normal Negative, Trace [facility] Comment on above: Order Comment: Speci men Type: URINE SPECIMENOrdering Facility: [facility] Address: [address] [place] [address] Performed By: #### 2 6-8 ####[facility] LABORATORYCLIA [id number] [address] Leukocyte esterase Test strip Ql (U) Negative Normal Negative, 25 Patito/uL [facility] Comment on above: Order Comment: Speci men Type: URINE SPECIMENOrdering Facility: [facility] Address: [address] [place] [address] Performed By: #### 2 4356-8 ####[facility] LABORATORYCLIA [id number] [address] [place] Nitrite Ql (U) Negative Normal Negative [facility] Comment on above: Order Comment: Speci men Type: URINE SPECIMENOrdering Facility: [facility] Address: [address] [place] [address] Performed By: #### 2 4356-8 ####[facility] LABORATORYCLIA [id number] [address] [place] pH (U) 7.5 [pH] Normal 5.0-8.0 [facility] Comment on above: Order Comment: Speci men Type: URINE SPECIMENOrdering Facility: [facility] Address: [address] [place] [address] Performed By: #### 2 4356-8 ####[facility] LABORATORYCLIA [id number] [address] [place] Protein (U) [Mass/Vol] Negative Normal Trace, Negative [facility] Comment on above: Order Comment: Speci men Type: URINE SPECIMENOrdering Facility: [facility] Address: [address] [place] [address] Performed By: #### 2 6-8 ####[facility] LABORATORYCLIA [id number] [address] [place] RBC LM.HPF (Urine sed) [#/Area] 0-3 /HPF Normal 0-3 /HPF [facility] Comment on above: Order Comment: Speci men Type: URINE SPECIMENOrdering Facility: [facility] Address: [address] [place] [address] Performed By: #### 2 6-8 ####[facility] LABORATORYCLIA [id number] [address] Specific gravity (U) [Rel density] 1.007 Normal 1.005-1.030 [facility] Comment on above: Order Comment: Speci men Type: URINE SPECIMENOrdering Facility: [facility] Address: [address] [place] [address] Performed By: #### 2 6-8 ####[facility] LABORATORYCLIA [id number] [address] [place] Urobilinogen Ql (U) Negative Normal Negative [facility] Comment on above: Order Comment: Speci men Type: URINE SPECIMENOrdering Facility: [facility] Address: [address] [place] [address] Performed By: #### 2 4356-8 ####[facility] LABORATORYCLIA [id number] [address] [address] WBC LM.HPF (Urine sed) [#/Area] 0-5 /HPF Normal 0-5 /HPF [facility] Comment on above: Order Comment: Speci men Type: URINE SPECIMENOrdering Facility: [facility] Address: [address] [place] [address] Performed By: #### 2 4356-8 ####[facility] LABORATORYCLIA [id number] [address] [place] Bilirubin Ql (U) Negative Normal Negative [facility] Comment on above: Order Comment: Speci men Type: URINE SPECIMENOrdering Facility: [facility] Address: [address] [place] [address] Performed By: #### 2 4356-8 ####[facility] LABORATORYCLIA [id number] [address] Clarity (Unsp spec) Clear Normal Clear [facility] Comment on above: Order Comment: Speci men Type: URINE SPECIMENOrdering Facility: [facility] Address: [address] [place] [address] Performed By: #### 2 4356-8 ####[facility] LABORATORYCLIA [id number] [address] Color (U) Colorless Normal Yellow [facility] Comment on above: Order Comment: Speci men Type: URINE SPECIMENOrdering Facility: [facility] Address: [address] [place] [address] Performed By: #### 2 4356-8 ####[facility] LABORATORYCLIA [id number] [address] Epithelial cells LM.HPF (Urine sed) [#/Area] Few Normal [facility] Comment on above: Order Comment: Speci men Type: URINE SPECIMENOrdering Facility: [facility] Address: [address] [place] [address] Performed By: #### 2 4356-8 ####[facility] LABORATORYCLIA [id number] [address] [place] Glucose Test strip (U) [Mass/Vol] Negative Normal Trace, Negative [facility] Comment on above: Order Comment: Speci men Type: URINE SPECIMENOrdering Facility: [facility] Address: [address] [place] [address] Performed By: #### 2 4356-8 ####[facility] LABORATORYCLIA [id number] [place] [address] [place] Hemoglobin Ql (U) Negative Normal Negative, Trace Fa [facility] Comment on above: Order Comment: Speci men Type: URINE SPECIMENOrdering Facility: [facility] Address: [address] [address] Performed By: #### 2 4356-8 ####[facility] LABORATORYCLIA [id number] [place] [address] [place] Ketones Ql (U) Negative Normal Negative, Trace [facility] Comment on above: Order Comment: Speci men Type: URINE SPECIMENOrdering Facility: [facility] Address: [address] [address] Performed By: #### 2 4356-8 ####[facility] LABORATORYCLIA [id number] [address] [place] Leukocyte esterase Test strip Ql (U) Negative Normal Negative, 25 Patito/uL [facility] Comment on above: Order Comment: Speci men Type: URINE SPECIMENOrdering Facility: [facility] Address: [address] [place] [address] Performed By: #### 2 4356-8 ####[facility] LABORATORYCLIA [id number] [address] [place] Nitrite Ql (U) Negative Normal Negative [facility] Comment on above: Order Comment: Speci men Type: URINE SPECIMENOrdering Facility: [facility] Address: [address] [place] [address] Performed By: #### 2 4356-8 ####[facility] LABORATORYCLIA [id number] [address] [place] pH (U) 7.5 [pH] Normal 5.0-8.0 [facility] Comment on above: Order Comment: Speci men Type: URINE SPECIMENOrdering Facility: [facility] Address: [address] [place] [address] Performed By: #### 2 4356-8 ####[facility] LABORATORYCLIA [id number] [place] [address] [place] Protein (U) [Mass/Vol] Negative Normal Trace, Negative [facility] Comment on above: Order Comment: Speci men Type: URINE SPECIMENOrdering Facility: [facility] Address: [address] [place] [address] Performed By: #### 2 4356-8 ####[facility] LABORATORYCLIA [id number] [place] [address] [place] RBC LM.HPF (Urine sed) [#/Area] 0-3 /HPF Normal 0-3 /HPF [facility] Comment on above: Order Comment: Speci men Type: URINE SPECIMENOrdering Facility: [facility] Address: [address] [place] [address] Performed By: #### 2 4356-8 ####[facility] LABORATORYCLIA [id number] [place] [address] [place] Specific gravity (U) [Rel density] 1.006 Normal 1.005-1.030 [facility] Comment on above: Order Comment: Speci men Type: URINE SPECIMENOrdering Facility: [facility] Address: [address] [place] [address] Performed By: #### 2 4356-8 ####[facility] LABORATORYCLIA [id number] [address] [place] Urobilinogen Ql (U) Negative Normal Negative [facility] Comment on above: Order Comment: Speci men Type: URINE SPECIMENOrdering Facility: [facility] Address: [address] [place] [address] Performed By: #### 2 4356-8 ####[facility] LABORATORYCLIA [id number] [place] [address] [place] WBC LM.HPF (Urine sed) [#/Area] 0-5 /HPF Normal 0-5 /HPF [facility] Comment on above: Order Comment: Speci men Type: URINE SPECIMENOrdering Facility: [facility] Address: [address] [place] [address] Performed By: #### 2 4356-8 ####[facility] LABORATORYCLIA [id number] [place] [address] [place] ALLIED HEALTHon 11-17-2022 ALLIED HEALTH Normal [facility] CBC W Auto Differential pane l (Bld)on 11-17-2022 Basophils (Bld) [#/Vol] 0.03 10*3/uL Normal <0.11 [facility] Comment on above: Order Comment: Speci men Type: BLOOD SPECIMENOrdering Facility: [facility] Address: [address] [place] [address] Performed By: #### 5 7021-8 ####[facility] LABORATORYCLIA [id number] [place] [address] [place] Basophils/100 WBC (Bld) 0.7 % Normal [facility] Comment on above: Order Comment: Speci men Type: BLOOD SPECIMENOrdering Facility: [facility] Address: [address] [place] [address] Performed By: #### 5 7021-8 ####[facility] LABORATORYCLIA [id number] [place] [address] [place] Differential cell count method Nom (Bld) Auto Normal [facility] Comment on above: Order Comment: Speci men Type: BLOOD SPECIMENOrdering Facility: [facility] Address: [address] [address] Performed By: #### 5 7021-8 ####[facility] LABORATORYCLIA [id number] [place] [address] [place] Eosinophils (Bld) [#/Vol] 0.07 10*3/uL Normal <0.46 [facility] Comment on above: Order Comment: Speci men Type: BLOOD SPECIMENOrdering Facility: [facility] Address: [address] [address] Performed By: #### 5 7021-8 ####[facility] LABORATORYCLIA [id number] [place] [address] [place] Eosinophils/100 WBC (Bld) 1.7 % Normal [facility] Comment on above: Order Comment: Speci men Type: BLOOD SPECIMENOrdering Facility: [facility] Address: [address] [address] Performed By: #### 5 7021-8 ####[facility] LABORATORYCLIA [id number] [place] [address] [place] Erythrocyte distribution width (RBC) [Ratio] 13.2 % Normal 11.5-15.0 [facility] Comment on above: Order Comment: Speci men Type: BLOOD SPECIMENOrdering Facility: [facility] Address: [address] [place] [address] Performed By: #### 5 7021-8 ####[facility] LABORATORYCLIA [id number] [address] [place] Hematocrit (Bld) [Volume fraction] 37.2 % Normal 36.0-46.0 [facility] Comment on above: Order Comment: Speci men Type: BLOOD SPECIMENOrdering Facility: [facility] Address: [address] [place] [address] Performed By: #### 5 7021-8 ####[facility] LABORATORYCLIA [id number] [place] [address] [place] Hemoglobin (Bld) [Mass/Vol] 12.9 g/dL Normal 11.5-15.5 [facility] Comment on above: Order Comment: Speci men Type: BLOOD SPECIMENOrdering Facility: [facility] Address: [address] [place] [address] Performed By: #### 5 7021-8 ####[facility] LABORATORYCLIA [id number] [address] [place] Immature granulocytes (Bld) [#/Vol] 10*3/uL Normal <0.10 [facility] Comment on above: Order Comment: Speci men Type: BLOOD SPECIMENOrdering Facility: [facility] Address: [address] [place] [address] Performed By: #### 5 7021-8 ####[facility] LABORATORYCLIA [id number] [address] [place] Immature granulocytes/100 WBC (Bld) 0.2 % Normal [facility] Comment on above: Order Comment: Speci men Type: BLOOD SPECIMENOrdering Facility: [facility] Address: [address] [address] Performed By: #### 5 7021-8 ####[facility] LABORATORYCLIA [id number] [place] [address] [place] Lymphocytes (Bld) [#/Vol] 1.81 10*3/uL Normal 1.00-4.00 [facility] Comment on above: Order Comment: Speci men Type: BLOOD SPECIMENOrdering Facility: [facility] Address: [address] [place] [address] Performed By: #### 5 7021-8 ####[facility] LABORATORYCLIA [id number] [address] [place] Lymphocytes/100 WBC (Bld) 44.6 % Normal [facility] Comment on above: Order Comment: Speci men Type: BLOOD SPECIMENOrdering Facility: [facility] Address: [address] [place] [address] Performed By: #### 5 7021-8 ####[facility] LABORATORYCLIA [id number] [place] [address] [place] MCH (RBC) [Entitic mass] 31.1 pg Normal 26.0-34.0 [facility] Comment on above: Order Comment: Speci men Type: BLOOD SPECIMENOrdering Facility: [facility] Address: [address] [place] [address] Performed By: #### 5 7021-8 ####[facility] LABORATORYCLIA [id number] [address] [place] MCHC (RBC) [Mass/Vol] 34.7 g/dL Normal 30.5-36.0 [facility] Comment on above: Order Comment: Speci men Type: BLOOD SPECIMENOrdering Facility: [facility] Address: [address] [address] Performed By: #### 5 7021-8 ####[facility] LABORATORYCLIA [id number] [place] [address] [place] MCV (RBC) [Entitic vol] 89.6 fL Normal 80.0-100.0 [facility] Comment on above: Order Comment: Speci men Type: BLOOD SPECIMENOrdering Facility: [facility] Address: [address] [address] Performed By: #### 5 7021-8 ####[facility] LABORATORYCLIA [id number] [place] [address] [place] Monocytes (Bld) [#/Vol] 0.21 10*3/uL Normal <0.87 [facility] Comment on above: Order Comment: Speci men Type: BLOOD SPECIMENOrdering Facility: [facility] Address: [address] [address] Performed By: #### 5 7021-8 ####[facility] LABORATORYCLIA [id number] [place] [address] [place] Monocytes/100 WBC (Bld) 5.2 % Normal [facility] Comment on above: Order Comment: Speci men Type: BLOOD SPECIMENOrdering Facility: [facility] Address: [address] [place] [address] Performed By: #### 5 7021-8 ####[facility] LABORATORYCLIA [id number] [place] [address] [place] Neutrophils (Bld) [#/Vol] 1.93 10*3/uL Normal 1.45-7.50 [facility] Comment on above: Order Comment: Speci men Type: BLOOD SPECIMENOrdering Facility: [facility] Address: [address] [place] [address] Performed By: #### 5 7021-8 ####[facility] LABORATORYCLIA [id number] [place] [address] [place] Neutrophils/100 WBC (Bld) 47.6 % Normal [facility] Comment on above: Order Comment: Speci men Type: BLOOD SPECIMENOrdering Facility: [facility] Address: [address] [address] Performed By: #### 5 7021-8 ####[facility] LABORATORYCLIA [id number] [address] [place] Nucleated RBC (Bld) [#/Vol] 10*3/uL Normal <0.01 [facility] Comment on above: Order Comment: Speci men Type: BLOOD SPECIMENOrdering Facility: [facility] Address: [address] [address] Performed By: #### 5 7021-8 ####[facility] LABORATORYCLIA [id number] [place] [address] [place] Nucleated RBC/100 WBC (Bld) [Ratio] 0.0 /100 WBC Normal [facility] Comment on above: Order Comment: Speci men Type: BLOOD SPECIMENOrdering Facility: [facility] Address: [address] [address] Performed By: #### 5 7021-8 ####[facility] LABORATORYCLIA [id number] [place] [address] [place] Platelet mean volume (Bld) [Entitic vol] 11.9 fL Normal 9.0-12.7 [facility] Comment on above: Order Comment: Speci men Type: BLOOD SPECIMENOrdering Facility: [facility] Address: [address] [place] [address] Performed By: #### 5 7021-8 ####[facility] LABORATORYCLIA [id number] [place] [address] [place] Platelets (Bld) [#/Vol] 85 10*3/uL Low 150-400 [facility] Comment on above: Order Comment: Speci men Type: BLOOD SPECIMENOrdering Facility: [facility] Address: [address] [place] [address] Result Comment: Resu lts may be inaccurate due to the presence of microclots. Performed By: #### 5 7021-8 ####[facility] LABORATORYCLIA [id number] [place] [address] [place] RBC (Bld) [#/Vol] 4.15 10*6/uL Normal 3.90-5.20 [facility] Comment on above: Order Comment: Speci men Type: BLOOD SPECIMENOrdering Facility: [facility] Address: [address] [place] [address] Performed By: #### 5 7021-8 ####[facility] LABORATORYCLIA [id number] [address] [place] WBC (Bld) [#/Vol] 4.06 10*3/uL Normal 3.70-11.00 [facility] Comment on above: Order Comment: Speci men Type: BLOOD SPECIMENOrdering Facility: [facility] Address: [address] [place] [address] Result Comment: Resu lts may be inaccurate due to the presence of microclots. Performed By: #### 5 7021-8 ####[facility] LABORATORYCLIA [id number] [address] [place] CONSULTon 11-17-2022 CONSULT Normal [facility] CT ABD/PEL W IVCONon 023 CT ABD/PEL W IVCON Normal [facility] Comprehensive metabolic 2000 panelon 11-17-2022 Albumin [Mass/Vol] 4.2 g/dL Normal 3.9-4.9 [facility] Comment on above: Order Comment: Speci men Type: BLOOD SPECIMENOrdering Facility: [facility] Address: [address] [address] Performed By: #### 3 040-3, 02226-2 ####[facility] LABORATORYCLIA [id number] [address] [id number] [facility] ALP [Catalytic activity/Vol] 69 U/L Normal 34-123 [facility] Comment on above: Order Comment: Speci men Type: BLOOD SPECIMENOrdering Facility: [facility] Address: [address] [place] [address] Performed By: #### 3 040-3, 31618-2 ####[facility] LABORATORYCLIA [id number] [place] [address] [place] ALT [Catalytic activity/Vol] 22 U/L Normal 7-38 [facility] Comment on above: Order Comment: Speci men Type: BLOOD SPECIMENOrdering Facility: [facility] Address: [address] [address] Performed By: #### 3 040-3, ####[facility] LABORATORYCLIA [id number] [place] [address] [place] Anion gap [Moles/Vol] 9 mmol/L Normal 9-18 [facility] Comment on above: Order Comment: Speci men Type: BLOOD SPECIMENOrdering Facility: [facility] Address: [address] [place] [address] Performed By: #### 3 040-3, ####[facility] LABORATORYCLIA [id number] [address] [place] AST [Catalytic activity/Vol] 40 U/L High 13-35 [facility] Comment on above: Order Comment: Speci men Type: BLOOD SPECIMENOrdering Facility: [facility] Address: [address] [place] [address] Performed By: #### 3 040-3, ####[facility] LABORATORYCLIA [id number] [place] [address] [place] Bilirubin [Mass/Vol] 0.4 mg/dL Normal 0.2-1.3 [facility] Comment on above: Order Comment: Speci men Type: BLOOD SPECIMENOrdering Facility: [facility] Address: [address] [address] Performed By: #### 3 040-3, 49166-2 ####[facility] LABORATORYCLIA [id number] [place] [address] [place] Calcium [Mass/Vol] 8.8 mg/dL Normal 8.5-10.2 [facility] Comment on above: Order Comment: Speci men Type: BLOOD SPECIMENOrdering Facility: [facility] Address: [address] [address] Performed By: #### 3 040-3, 20702-0 ####[facility] LABORATORYCLIA [id number] [place] [id number] [place] Chloride [Moles/Vol] 107 mmol/L High 97-105 [facility] Comment on above: Order Comment: Speci men Type: BLOOD SPECIMENOrdering Facility: [facility] Address: [address] [place] [address] Performed By: #### 3 040-3, 83001-9 ####[facility] LABORATORYCLIA [id number] [place] [address] [place] CO2 [Moles/Vol] 23 mmol/L Normal 22-30 [facility] Comment on above: Order Comment: Speci men Type: BLOOD SPECIMENOrdering Facility: [facility] Address: [address] [place] [address] Performed By: #### 3 040-3, 52211-5 ####[facility] LABORATORYCLIA [id number] [place] [address] [facility] [place] Creatinine [Mass/Vol] 0.75 mg/dL Normal 0.58-0.96 [facility] Comment on above: Order Comment: Speci men Type: BLOOD SPECIMENOrdering Facility: [facility] Address: [address] [place] [address] Performed By: #### 3 040-3, 86231-4 ####[facility] LABORATORYCLIA [id number] [address] Creatinine and Glomerular filtration rate.predicted panel (S/P/Bld) 108 mL/min/1.73m??? Normal >=60 [facility] Comment on above: Order Comment: Speci men Type: BLOOD SPECIMENOrdering Facility: [facility] Address: [address] [place] [address] Result Comment: Jessica mated Glomerular Filtration Rate [...] actual GFR. Performed By: #### 3 040-3, 92763-2 ####[facility] LABORATORYCLIA [id number] [place] [address] [place] Glucose [Mass/Vol] 80 mg/dL Normal 74-99 [facility] Comment on above: Order Comment: Geraldo marrero Type: BLOOD SPECIMENOrdering Facility: [facility] Address: [address] [address] Result Comment: The [place] Diabetes [employer] (ADA) provides guidance for cutoff [...] Standards of Medical Care in Diabetes 2016, [place] [employer]. Diabetes Care. 2016.39(Suppl 1). Performed By: #### 3 040-3, 56236-0 ####[facility] LABORATORYCLIA [id number] [place] [address] [place] Potassium [Moles/Vol] 4.3 mmol/L Normal 3.7-5.1 [facility] Comment on above: Order Comment: Geraldo marrero Type: BLOOD SPECIMENOrdering Facility: [facility] Address: [address] [address] Performed By: #### 3 040-3, 51814-2 ####[facility] LABORATORYCLIA [id number] [place] [address] [place] Protein [Mass/Vol] 6.9 g/dL Normal 6.3-8.0 [facility] Comment on above: Order Comment: Geraldo marrero Type: BLOOD SPECIMENOrdering Facility: [facility] Address: [address] [address] Performed By: #### 3 040-3, 07659-0 ####[facility] LABORATORYCLIA [id number] [place] [address] [facility] Sodium [Moles/Vol] 139 mmol/L Normal 136-144 [facility] Comment on above: Order Comment: Speci men Type: BLOOD SPECIMENOrdering Facility: [facility] Address: [address] [place], [place] [address] Performed By: #### 3 040-3, ####[facility] LABORATORYCLIA [id number] [place] [address] [facility] Urea nitrogen [Mass/Vol] 8 mg/dL Normal 7-21 [facility] Comment on above: Order Comment: Speci men Type: BLOOD SPECIMENOrdering Facility: [facility] Address: [address] [place] [address] Performed By: #### 3 040-3, 91633-5 ####[facility] LABORATORYCLIA [id number] [place] [address] [facility] ED NOTEon 11-17-2022 ED NOTE HNO ID: [id number] Author: Jayla Jean RN Service: ? Author Type: Registered Nurse Type: ED Notes Filed: 11/17/2022 2:00 PM Note Text: Pt sts symptoms she feels like she is going to pass out in WR. Vitals rechecked and DS done Normal [facility] ED PROV NOTEon 11-17-2022 ED PROV NOTE Normal [facility] ED PROV NOTE Normal [facility] ED Triage Noteon 11-17-2022 ED Triage Note Normal [facility] Lipase SerPl-cCncon 11-18-19 23 Lipase [Catalytic activity/Vol] 26 U/L Normal 16-61 [facility] Comment on above: Order Comment: Speci men Type: BLOOD SPECIMENOrdering Facility: [facility] Address: [address] [place], [place] [address] Performed By: #### 3 040-3, 49883-2 ####OS[facility] LABORATORYCLIA [id number] [place] [address] [facility] NURSING PROGon 11-17-2022 NURSING PROG Normal [facility] NURSING PROG Normal [facility] Ambulatory Visit Summaryon 1 Ambulatory Visit Summary Normal [facility] Family Medicine Office/Clini c Noteon 11-16-2022 Family Medicine Office/Clinic Note Normal [facility] Comment on above: Result Comment: Elec tronically Signed By: Cristhian REDDING, Jaquan Johnson\.br\Date and Time Signed: 11/16/22 10:42 EDT Basic metabolic 2000 panelon 11-12-2022 Anion gap [Moles/Vol] 12 mmol/L Normal 9-18 [facility] Comment on above: Order Comment: Speci men Type: BLOOD SPECIMENOrdering Facility: [facility] Address: [address] [address] Performed By: #### 2 4321-2 ####[facility] LABORATORYCLIA [id number] [place] [address] [place] Calcium [Mass/Vol] 8.8 mg/dL Normal 8.5-10.2 [facility] Comment on above: Order Comment: Speci men Type: BLOOD SPECIMENOrdering Facility: [facility] Address: [address] [address] Performed By: #### 2 4321-2 ####[facility] LABORATORYCLIA [id number] [place] [address] [place] Chloride [Moles/Vol] 104 mmol/L Normal 97-105 [facility] Comment on above: Order Comment: Speci men Type: BLOOD SPECIMENOrdering Facility: [facility] Address: [address] [address] Performed By: #### 2 4321-2 ####[facility] LABORATORYCLIA [id number] [place] [address] [place] CO2 [Moles/Vol] 20 mmol/L Low 22-30 [facility] Comment on above: Order Comment: Speci men Type: BLOOD SPECIMENOrdering Facility: [facility] Address: [address] [address] Performed By: #### 2 4321-2 ####[facility] LABORATORYCLIA [id number] [place] [address] [facility] Creatinine [Mass/Vol] 0.62 mg/dL Normal 0.58-0.96 [facility] Comment on above: Order Comment: Geraldo marrero Type: BLOOD SPECIMENOrdering Facility: [facility] Address: [address] [place] [address] Performed By: #### 2 4321-2 ####[facility] LABORATORYCLIA [id number] [address] Creatinine and Glomerular filtration rate.predicted panel (S/P/Bld) 121 mL/min/1.73m??? Normal >=60 [facility] Comment on above: Order Comment: Geraldo marrero Type: BLOOD SPECIMENOrdering Facility: [facility] Address: [address] [place] [address] Result Comment: Jessica mated Glomerular Filtration Rate [...] actual GFR. Performed By: #### 2 4321-2 ####[facility] LABORATORYCLIA [id number] [place] [address] [place] Glucose [Mass/Vol] 102 mg/dL High 74-99 [facility] Comment on above: Order Comment: Geraldo marrero Type: BLOOD SPECIMENOrdering Facility: [facility] Address: [address] [place] [address] Result Comment: The [place] Diabetes [employer] (ADA) provides guidance for cutoff [...] Standards of Medical Care in Diabetes 2016, [place] [employer]. Diabetes Care. 2016.39(Suppl 1). Performed By: #### 2 4321-2 ####[facility] LABORATORYCLIA [id number] [address] [facility] Potassium [Moles/Vol] 4.2 mmol/L Normal 3.7-5.1 [facility] Comment on above: Order Comment: Speci men Type: BLOOD SPECIMENOrdering Facility: [facility] Address: [address] [address] Performed By: #### 2 4321-2 ####[facility] LABORATORYCLIA [id number] [address] STATES [facility] Sodium [Moles/Vol] 136 mmol/L Normal 136-144 [facility] Comment on above: Order Comment: Speci men Type: BLOOD SPECIMENOrdering Facility: [facility] Address: [address] [address] Performed By: #### 2 4321-2 ####[facility] LABORATORYCLIA [id number] [address] Urea nitrogen [Mass/Vol] 8 mg/dL Normal 7-21 [facility] Comment on above: Order Comment: Speci men Type: BLOOD SPECIMENOrdering Facility: [facility] Address: [address] [address] Performed By: #### 2 4321-2 ####[facility] LABORATORYCLIA [id number] [place] [address] [place] [facility] CBC W Auto Differential pane l (Bld)on 11-12-2022 Basophils (Bld) [#/Vol] 10*3/uL Normal <0.11 [facility] Comment on above: Order Comment: Speci men Type: BLOOD SPECIMENOrdering Facility: [facility] Address: [address] [address] Performed By: #### 5 7021-8 ####[facility] LABORATORYCLIA [id number] [address] [place] Basophils/100 WBC (Bld) 0.2 % Normal [facility] Comment on above: Order Comment: Speci men Type: BLOOD SPECIMENOrdering Facility: [facility] Address: [address] [place] [address] Performed By: #### 5 7021-8 ####[facility] LABORATORYCLIA [id number] [place] [address] [place] Differential cell count method Nom (Bld) Auto Normal [facility] Comment on above: Order Comment: Speci men Type: BLOOD SPECIMENOrdering Facility: [facility] Address: [address] [place] [address] Performed By: #### 5 7021-8 ####[facility] LABORATORYCLIA [id number] [place] [address] [place] Eosinophils (Bld) [#/Vol] 10*3/uL Normal <0.46 [facility] Comment on above: Order Comment: Speci men Type: BLOOD SPECIMENOrdering Facility: [facility] Address: [address] [place] [address] Performed By: #### 5 7021-8 ####[facility] LABORATORYCLIA [id number] [address] STATES [facility] Eosinophils/100 WBC (Bld) 0.0 % Normal [facility] Comment on above: Order Comment: Speci men Type: BLOOD SPECIMENOrdering Facility: [facility] Address: [address] [place] [address] Performed By: #### 5 7021-8 ####[facility] LABORATORYCLIA [id number] [address] [place] Erythrocyte distribution width (RBC) [Ratio] 12.6 % Normal 11.5-15.0 [facility] Comment on above: Order Comment: Speci men Type: BLOOD SPECIMENOrdering Facility: [facility] Address: [address] [place] [address] Performed By: #### 5 7021-8 ####[facility] LABORATORYCLIA [id number] [place] [address] [place] Hematocrit (Bld) [Volume fraction] 36.9 % Normal 36.0-46.0 [facility] Comment on above: Order Comment: Speci men Type: BLOOD SPECIMENOrdering Facility: [facility] Address: [address] [place] [address] Performed By: #### 5 7021-8 ####[facility] LABORATORYCLIA [id number] [place] [address] [place] Hemoglobin (Bld) [Mass/Vol] 12.8 g/dL Normal 11.5-15.5 [facility] Comment on above: Order Comment: Speci men Type: BLOOD SPECIMENOrdering Facility: [facility] Address: [address] [place] [address] Performed By: #### 5 7021-8 ####[facility] LABORATORYCLIA [id number] [address] [place] Immature granulocytes (Bld) [#/Vol] 0.08 10*3/uL Normal <0.10 [facility] Comment on above: Order Comment: Speci men Type: BLOOD SPECIMENOrdering Facility: [facility] Address: [address] [place] [address] Performed By: #### 5 7021-8 ####[facility] LABORATORYCLIA [id number] [address] [place] Immature granulocytes/100 WBC (Bld) 0.8 % Normal [facility] Comment on above: Order Comment: Speci men Type: BLOOD SPECIMENOrdering Facility: [facility] Address: [address] [address] Performed By: #### 5 7021-8 ####[facility] LABORATORYCLIA [id number] [place] [address] [place] Lymphocytes (Bld) [#/Vol] 1.23 10*3/uL Normal 1.00-4.00 [facility] Comment on above: Order Comment: Speci men Type: BLOOD SPECIMENOrdering Facility: [facility] Address: [address] [place] [address] Performed By: #### 5 7021-8 ####[facility] LABORATORYCLIA [id number] [address] [place] Lymphocytes/100 WBC (Bld) 12.8 % Normal [facility] Comment on above: Order Comment: Speci men Type: BLOOD SPECIMENOrdering Facility: [facility] Address: [address] [place] [address] Performed By: #### 5 7021-8 ####[facility] LABORATORYCLIA [id number] [address] STATES [facility] MCH (RBC) [Entitic mass] 30.4 pg Normal 26.0-34.0 [facility] Comment on above: Order Comment: Speci men Type: BLOOD SPECIMENOrdering Facility: [facility] Address: [address] [place] [address] Performed By: #### 5 7021-8 ####[facility] LABORATORYCLIA [id number] [address] [place] MCHC (RBC) [Mass/Vol] 34.7 g/dL Normal 30.5-36.0 [facility] Comment on above: Order Comment: Speci men Type: BLOOD SPECIMENOrdering Facility: [facility] Address: [address] [place] [address] Performed By: #### 5 7021-8 ####[facility] LABORATORYCLIA [id number] [address] STATES [facility] MCV (RBC) [Entitic vol] 87.6 fL Normal 80.0-100.0 [facility] Comment on above: Order Comment: Speci men Type: BLOOD SPECIMENOrdering Facility: [facility] Address: [address] [place] [address] Performed By: #### 5 7021-8 ####[facility] LABORATORYCLIA [id number] [address] Monocytes (Bld) [#/Vol] 0.42 10*3/uL Normal <0.87 [facility] Comment on above: Order Comment: Speci men Type: BLOOD SPECIMENOrdering Facility: [facility] Address: [address] [address] Performed By: #### 5 7021-8 ####[facility] LABORATORYCLIA [id number] [place] [address] [place] Monocytes/100 WBC (Bld) 4.4 % Normal [facility] Comment on above: Order Comment: Speci men Type: BLOOD SPECIMENOrdering Facility: [facility] Address: [address] [address] Performed By: #### 5 7021-8 ####[facility] LABORATORYCLIA [id number] [place] [address] [place] Neutrophils (Bld) [#/Vol] 7.84 10*3/uL High 1.45-7.50 [facility] Comment on above: Order Comment: Speci men Type: BLOOD SPECIMENOrdering Facility: [facility] Address: [address] [address] Performed By: #### 5 7021-8 ####[facility] LABORATORYCLIA [id number] [place] [address] [place] Neutrophils/100 WBC (Bld) 81.8 % Normal [facility] Comment on above: Order Comment: Speci men Type: BLOOD SPECIMENOrdering Facility: [facility] Address: [address] [address] Performed By: #### 5 7021-8 ####[facility] LABORATORYCLIA [id number] [place] [address] [place] Nucleated RBC (Bld) [#/Vol] 10*3/uL Normal <0.01 [facility] Comment on above: Order Comment: Speci men Type: BLOOD SPECIMENOrdering Facility: [facility] Address: [address] [address] Performed By: #### 5 7021-8 ####[facility] LABORATORYCLIA [id number] [place] [address] [place] Nucleated RBC/100 WBC (Bld) [Ratio] 0.0 /100 WBC Normal [facility] Comment on above: Order Comment: Speci men Type: BLOOD SPECIMENOrdering Facility: [facility] Address: [address] [address] Performed By: #### 5 7021-8 ####[facility] LABORATORYCLIA [id number] [place] [address] [place] Platelet mean volume (Bld) [Entitic vol] 11.3 fL Normal 9.0-12.7 [facility] Comment on above: Order Comment: Speci men Type: BLOOD SPECIMENOrdering Facility: [facility] Address: [address] [address] Performed By: #### 5 7021-8 ####[facility] LABORATORYCLIA [id number] [place] [address] [place] Platelets (Bld) [#/Vol] 253 10*3/uL Normal 150-400 [facility] Comment on above: Order Comment: Speci men Type: BLOOD SPECIMENOrdering Facility: [facility] Address: [address] [address] Performed By: #### 5 7021-8 ####[facility] LABORATORYCLIA [id number] [place] [address] [place] RBC (Bld) [#/Vol] 4.21 10*6/uL Normal 3.90-5.20 [facility] Comment on above: Order Comment: Speci men Type: BLOOD SPECIMENOrdering Facility: [facility] Address: [address] [address] Performed By: #### 5 7021-8 ####[facility] LABORATORYCLIA [id number] [place] [address] [place] WBC (Bld) [#/Vol] 9.59 10*3/uL Normal 3.70-11.00 [facility] Comment on above: Order Comment: Speci men Type: BLOOD SPECIMENOrdering Facility: [facility] Address: [address] [address] Performed By: #### 5 7021-8 ####[facility] LABORATORYCLIA [id number] [place] [address] [place] CNDSon 11-12-2022 CNDS [facility] CNPNon 11-12-2022 CNPN Normal [facility] NURSING PROGon 11-12-2022 NURSING PROG [facility] NUTRITIONon 11-12-2022 NUTRITION Normal [facility] ANES POSTPROC EVALon 023 ANES POSTPROC EVAL Normal [facility] ANES PRE-OPon 11-11-2022 ANES PRE-OP [facility] BRIEF OP NOTon 11-11-2022 BRIEF OP NOT [facility] ERCPon 11-11-2022 ERCP [facility] NURSING PROGon 11-11-2022 NURSING PROG [facility] OPERATIVE NOon 11-11-2022 OPERATIVE NO [facility] PT EDon 11-11-2022 PT ED [facility] TYPE + SCREENon 11-11-2022 ABO O [facility] Comment on above: Order Comment: Speci men Type: BLOOD SPECIMENOrdering Facility: [facility] Address: [address] [place] [address] Performed By: #### T SCR ####[facility] BLOOD BANKCLIA [id number] [address] [place] HISTORICAL AB SCR STATUS Negative [facility] Comment on above: Order Comment: Speci men Type: BLOOD SPECIMENOrdering Facility: [facility] Address: [address] [place] [address] Performed By: #### T SCR ####[facility] BLOOD BANKCLIA [id number] [place] [address] [place] Rh Nom (Bld) Positive [facility] Comment on above: Order Comment: Speci men Type: BLOOD SPECIMENOrdering Facility: [facility] Address: [address] [place] [address] Performed By: #### T SCR ####[facility] BLOOD BANKCLIA [id number] [place] [address] [place] TYPE AND SCREEN EXPIRATION 11/14/2022 23:59 [facility] Comment on above: Order Comment: Speci men Type: BLOOD SPECIMENOrdering Facility: [facility] Address: [address] [address] Performed By: #### T SCR ####[facility] BLOOD BANKIA [id number] [place] [address] [place] XR ERCP READ ONLYon 11-12-19 XR ERCP READ ONLY Normal [facility] CNCOon 11-10-2022 CNCO Letter Text Normal [facility] CNPNon 11-10-2022 CNPN Normal [facility] CNPNon 11-09-2022 CNPN Normal [facility] Population Healthon 11-10-19 Population Health Normal [facility] CNDSon 11-08-2022 CNDS Normal [facility] Basic metabolic 2000 panelon 11-06-2022 Anion gap [Moles/Vol] 8 mmol/L Low 9-18 [facility] Comment on above: Order Comment: Speci men Type: BLOOD SPECIMENOrdering Facility: [facility] Address: [address] [address] Performed By: #### 2 4321-2 ####[facility] LABORATORYCLIA [id number] [place] [address] [place] Calcium [Mass/Vol] 8.6 mg/dL Normal 8.5-10.2 [facility] Comment on above: Order Comment: Speci men Type: BLOOD SPECIMENOrdering Facility: [facility] Address: [address] [address] Performed By: #### 2 4321-2 ####[facility] LABORATORYCLIA [id number] [place] [address] [place] Chloride [Moles/Vol] 108 mmol/L High 97-105 [facility] Comment on above: Order Comment: Speci men Type: BLOOD SPECIMENOrdering Facility: [facility] Address: [address] [address] Performed By: #### 2 4321-2 ####[facility] LABORATORYCLIA [id number] [place] [address] [place] CO2 [Moles/Vol] 24 mmol/L Normal 22-30 [facility] Comment on above: Order Comment: Speci men Type: BLOOD SPECIMENOrdering Facility: [facility] Address: [address] [address] Performed By: #### 2 4321-2 ####[facility] LABORATORYCLIA [id number] [facility], [place] [address] [place] [address] [place] Creatinine [Mass/Vol] 0.74 mg/dL Normal 0.58-0.96 [facility] Comment on above: Order Comment: Speci men Type: BLOOD SPECIMENOrdering Facility: [facility] Address: [address] [address] Performed By: #### 2 4321-2 ####[facility] LABORATORYCLIA [id number] [address] [facility] Creatinine and Glomerular filtration rate.predicted panel (S/P/Bld) 110 mL/min/1.73m??? Normal >=60 [facility] Comment on above: Order Comment: Speci men Type: BLOOD SPECIMENOrdering Facility: [facility] Address: [address] [address] Result Comment: Jessica mated Glomerular Filtration Rate [...] actual GFR. Performed By: #### 2 4321-2 ####[facility] LABORATORYCLIA [id number] [address] [place] Glucose [Mass/Vol] 82 mg/dL Normal 74-99 [facility] Comment on above: Order Comment: [place] [facility] Type: BLOOD SPECIMENOrdering Facility: [facility] Address: [address] [address] Result Comment: The [place] [employer] (ADA) provides guidance for cutoff [...] Standards of Medical Care in Diabetes 2016, [place] [employer]. Diabetes Care. 2016.39(Suppl 1). Performed By: #### 2 4321-2 ####[facility] LEMOOREIA [id number] [place] [address] [place] Potassium [Moles/Vol] 3.9 mmol/L Normal 3.7-5.1 [facility] Comment on above: Order Comment: Speci men Type: BLOOD SPECIMENOrdering Facility: [facility] Address: [address] [place] [address] Performed By: #### 2 4321-2 ####[facility] LEMOOREIA [id number] [place] [address] [place] Sodium [Moles/Vol] 140 mmol/L Normal 136-144 [facility]ital Comment on above: Order Comment: [place] men Type: BLOOD SPECIMENOrdering Facility: [facility] Address: [address] [address] Performed By: #### 2 4321-2 ####[facility] LEMOOREIA [id number] [place] [address] [place] nitrogen [Mass/Vol] 8 mg/dL Normal 7-21 [facility] Comment on above: Order Comment: Speci men Type: BLOOD SPECIMENOrdering Facility: [facility] Address: [address] [address] Performed By: #### 2 4321-2 ####[facility] [id number] [place] [address] [place] CASE MGT INIT ASSESon 2022 CASE MGT INIT [facility] CBC panel Auto (Bld)on 11-06 Erythrocyte distribution width (RBC) [Ratio] 13.3 % Normal 11.5-15.0 [facility] Comment on above: Order Comment: Speci men Type: BLOOD SPECIMENOrdering Facility: [facility] Address: [address] [address] Performed By: #### 5 8410-2 ####[facility] LABORATORYCLIA [id number] [address] [place] Hematocrit (Bld) [Volume fraction] 34.5 % Low 36.0-46.0 [facility] Comment on above: Order Comment: Speci men Type: BLOOD SPECIMENOrdering Facility: [facility] Address: [address] [place] [address] Performed By: #### 5 8410-2 ####[facility] LABORATORYCLIA [id number] [address] [place] Hemoglobin (Bld) [Mass/Vol] 11.4 g/dL Low 11.5-15.5 [facility] Comment on above: Order Comment: Speci men Type: BLOOD SPECIMENOrdering Facility: [facility] Address: [address] [place] [address] Performed By: #### 5 8410-2 ####[facility] LABORATORYIA [id number] [address] [place] MCH (RBC) [Entitic mass] 30.8 pg Normal 26.0-34.0 [facility] Comment on above: Order Comment: Speci men Type: BLOOD SPECIMENOrdering Facility: [facility] Address: [address] [address] Performed By: #### 5 8410-2 ####[facility] LABORATORYIA [id number] [address] [place] MCHC (RBC) [Mass/Vol] 33.0 g/dL Normal 30.5-36.0 [facility] Comment on above: Order Comment: Speci men Type: BLOOD SPECIMENOrdering Facility: [facility] Address: [address] [address] Performed By: #### 5 8410-2 ####[facility] [id number] [place] [address] [place] MCV (RBC) [Entitic vol] 93.2 fL Normal 80.0-100.0 [facility] Comment on above: Order Comment: Speci men Type: BLOOD SPECIMENOrdering Facility: [facility] Address: [address] [address] Performed By: #### 5 8410-2 ####[facility] [id number] [place] [address] [place] Nucleated RBC (Bld) [#/Vol] 10*3/uL Normal <0.01 [facility] Comment on above: Order Comment: Speci men Type: BLOOD SPECIMENOrdering Facility: [facility] Address: [address] [address] Performed By: #### 5 8410-2 ####[facility] [id number] [place] [address] [place] Platelet mean volume (Bld) [Entitic vol] 11.3 fL Normal 9.0-12.7 [facility] Comment on above: Order Comment: Speci men Type: BLOOD SPECIMENOrdering Facility: [facility] Address: [address] [address] Performed By: #### 5 8410-2 ####[facility] [id number] [place] [address] [place] Platelets (Bld) [#/Vol] 225 10*3/uL Normal 150-400 [facility] Comment on above: Order Comment: Speci men Type: BLOOD SPECIMENOrdering Facility: [facility] Address: [address] [address] Performed By: #### 5 8410-2 ####[facility] LABORATORYIA [id number] [place] [id number] [place] RBC (Bld) [#/Vol] 3.70 10*6/uL Low 3.90-5.20 [facility] Comment on above: Order Comment: Speci men Type: BLOOD SPECIMENOrdering Facility: [facility] Address: [address] [address] Performed By: #### 5 8410-2 ####[facility] LABORATORYCLIA [id number] [facility] [place] [address] [place] WBC (Bld) [#/Vol] 3.98 10*3/uL Normal 3.70-11.00 [facility] Comment on above: Order Comment: Speci men Type: BLOOD SPECIMENOrdering Facility: [facility] Address: [address] [address] Performed By: #### 5 8410-2 ####[facility] [id number] [facility] [place] [address] [place] CNPNon 11-06-2022 CNPN Normal [facility] CONSULT PROGon 11-06-2022 CONSULT PROG Normal [facility] NM HEPATOBILIARY W EF AND/OR RXon 11-06-2022 NM HEPATOBILIARY W EF AND/OR RX Normal [facility] CBC W Auto Differential pane l (Bld)on 11-05-2022 Basophils (Bld) [#/Vol] 0.03 10*3/uL Normal <0.11 [facility] Comment on above: Order Comment: Speci men Type: BLOOD SPECIMENOrdering Facility: [facility] Address: [address] [address] Performed By: #### 5 7021-8 ####[facility] LABORATORYCLIA [id number] [facility] [place] [address] [place] Basophils/100 WBC (Bld) 0.6 % Normal [facility] Comment on above: Order Comment: Speci men Type: BLOOD SPECIMENOrdering Facility: [facility] Address: [address] [address] Performed By: #### 5 7021-8 ####[facility] LABORATORYIA [id number] [address] [place] Differential cell count method Nom (Bld) Auto Normal [facility] Comment on above: Order Comment: Speci men Type: BLOOD SPECIMENOrdering Facility: [facility] Address: [address] [address] Performed By: #### 5 7021-8 ####[facility] LABORATORYIA [id number] [place] [address] [place] Eosinophils (Bld) [#/Vol] 0.08 10*3/uL Normal <0.46 [facility] Comment on above: Order Comment: Speci men Type: BLOOD SPECIMENOrdering Facility: [facility] Address: [address] [address] Performed By: #### 5 7021-8 ####[facility] [id number] [place] [address] [place] Eosinophils/100 WBC (Bld) 1.5 % Normal [facility] Comment on above: Order Comment: Speci men Type: BLOOD SPECIMENOrdering Facility: [facility] Address: [address] [place] [address] Performed By: #### 5 7021-8 ####[facility] [id number] [address] [place] Erythrocyte distribution width (RBC) [Ratio] 13.3 % Normal 11.5-15.0 [facility] Comment on above: Order Comment: Speci men Type: BLOOD SPECIMENOrdering Facility: [facility] Address: [address] [address] Performed By: #### 5 7021-8 ####[facility] LABORATORYIA [id number] [address] [place] Hematocrit (Bld) [Volume fraction] 40.5 % Normal 36.0-46.0 [facility] Comment on above: Order Comment: Speci men Type: BLOOD SPECIMENOrdering Facility: [facility] Address: [address] [address] Performed By: #### 5 7021-8 ####[facility] LABORATORYCLIA [id number] [place] [address] [place] Hemoglobin (Bld) [Mass/Vol] 13.3 g/dL Normal 11.5-15.5 [facility] Comment on above: Order Comment: Speci men Type: BLOOD SPECIMENOrdering Facility: [facility] Address: [address] [address] Performed By: #### 5 7021-8 ####[facility] LABORATORYCLIA [id number] [place] [address] [place] Immature granulocytes (Bld) [#/Vol] 10*3/uL Normal <0.10 [facility] Comment on above: Order Comment: Speci men Type: BLOOD SPECIMENOrdering Facility: [facility] Address: [address] [place] [address] Performed By: #### 5 7021-8 ####[facility] [id number] [place] [address] [place] Immature granulocytes/100 WBC (Bld) 0.4 % Normal [facility] Comment on above: Order Comment: Speci men Type: BLOOD SPECIMENOrdering Facility: [facility] Address: [address] [place] [address] Performed By: #### 5 7021-8 ####[facility] LABORATORYIA [id number] [place] [address] [place] Lymphocytes (Bld) [#/Vol] 2.53 10*3/uL Normal 1.00-4.00 [facility] Comment on above: Order Comment: Speci men Type: BLOOD SPECIMENOrdering Facility: [facility] Address: [address] [place], [place] [address] Performed By: #### 5 7021-8 ####[facility] LABORATORYIA [id number] [place] [address] [place] Lymphocytes/100 WBC (Bld) 48.5 % Normal [facility] Comment on above: Order Comment: Speci men Type: BLOOD SPECIMENOrdering Facility: [facility] Address: [address] [address] Performed By: #### 5 7021-8 ####[facility] [id number] [address] [place] MCH (RBC) [Entitic mass] 30.4 pg Normal 26.0-34.0 [facility] Comment on above: Order Comment: Speci men Type: BLOOD SPECIMENOrdering Facility: [facility] Address: [address] [address] Performed By: #### 5 7021-8 ####[facility] [id number] [place] [address] [place] MCHC (RBC) [Mass/Vol] 32.8 g/dL Normal 30.5-36.0 [facility] Comment on above: Order Comment: Speci men Type: BLOOD SPECIMENOrdering Facility: [facility] Address: [address] [address] Performed By: #### 5 7021-8 ####[facility] [id number] [place] [address] [place] MCV (RBC) [Entitic vol] 92.7 fL Normal 80.0-100.0 [facility] Comment on above: Order Comment: Speci men Type: BLOOD SPECIMENOrdering Facility: [facility] Address: [address] [address] Performed By: #### 5 7021-8 ####[facility] [id number] [address] [place] Monocytes (Bld) [#/Vol] 0.30 10*3/uL Normal <0.87 [facility] Comment on above: Order Comment: Speci men Type: BLOOD SPECIMENOrdering Facility: [facility] Address: [address] [address] Performed By: #### 5 7021-8 ####[facility] LABORATORYIA [id number] [place] [address] [place] Monocytes/100 WBC (Bld) 5.7 % Normal [facility] Comment on above: Order Comment: Speci men Type: BLOOD SPECIMENOrdering Facility: [facility] Address: [address] [address] Performed By: #### 5 7021-8 ####[facility] LABORATORYCLIA [id number] [place] [address] [place] Neutrophils (Bld) [#/Vol] 2.26 10*3/uL Normal 1.45-7.50 [facility] Comment on above: Order Comment: Speci men Type: BLOOD SPECIMENOrdering Facility: [facility] Address: [address] [address] Performed By: #### 5 7021-8 ####[facility] LABORATORYCLIA [id number] [place] [address] [place] Neutrophils/100 WBC (Bld) 43.3 % Normal [facility] Comment on above: Order Comment: Speci men Type: BLOOD SPECIMENOrdering Facility: [facility] Address: [address] [address] Performed By: #### 5 7021-8 ####[facility] LABORATORYCLIA [id number] [place] [address] [place] Nucleated RBC (Bld) [#/Vol] 10*3/uL Normal <0.01 [facility] Comment on above: Order Comment: Speci men Type: BLOOD SPECIMENOrdering Facility: [facility] Address: [address] [address] Performed By: #### 5 7021-8 ####[facility] LABORATORYCLIA [id number] [place] [address] [place] Nucleated RBC/100 WBC (Bld) [Ratio] 0.0 /100 WBC Normal [facility] Comment on above: Order Comment: Speci men Type: BLOOD SPECIMENOrdering Facility: [facility] Address: [address] Performed By: #### 5 7021-8 ####[facility] LABORATORYIA [id number] [facility] [place] [address] [place] Platelet mean volume (Bld) [Entitic vol] 11.4 fL Normal 9.0-12.7 [facility] Comment on above: Order Comment: Speci men Type: BLOOD SPECIMENOrdering Facility: [facility] Address: [address] [place] [address] Performed By: #### 5 7021-8 ####[facility] [id number] [place] [address] [place] Platelets (Bld) [#/Vol] 207 10*3/uL Normal 150-400 [facility] Comment on above: Order Comment: Speci men Type: BLOOD SPECIMENOrdering Facility: [facility] Address: [address] [place] [address] Performed By: #### 5 7021-8 ####[facility] [id number] [place] [address] [place] RBC (Bld) [#/Vol] 4.37 10*6/uL Normal 3.90-5.20 [facility] Comment on above: Order Comment: Speci men Type: BLOOD SPECIMENOrdering Facility: [facility] Address: [address] [place] [address] Performed By: #### 5 7021-8 ####[facility] [id number] [facility] [place] [address] [place] WBC (Bld) [#/Vol] 5.22 10*3/uL Normal 3.70-11.00 [facility] Comment on above: Order Comment: Speci men Type: BLOOD SPECIMENOrdering Facility: [facility] Address: [address] [place], [place] [address] Performed By: #### 5 7021-8 ####[facility] LABORATORYIA [id number] [facility] [place] [address] [place] CNPNon 11-05-2022 CNPN Normal [facility] CONSULTon 11-05-2022 CONSULT Normal [facility] CONSULT Normal [facility] Comprehensive metabolic 2000 panelon 11-05-2022 Albumin [Mass/Vol] 4.2 g/dL Normal 3.9-4.9 [facility] Comment on above: Order Comment: Speci men Type: BLOOD SPECIMENOrdering Facility: [facility] Address: [address] [place] [address] Performed By: #### 2 4323-8, 3040-3 ####[facility] LABORATORYCLIA [id number] [place] [address] [place] ALP [Catalytic activity/Vol] 71 U/L Normal 34-123 [facility] Comment on above: Order Comment: Speci men Type: BLOOD SPECIMENOrdering Facility: [facility] Address: [address] [place] [address] Performed By: #### 2 4323-8, 0-3 ####[facility] LABORATORYCLIA [id number] [place] [address] [place] ALT [Catalytic activity/Vol] 15 U/L Normal 7-38 [facility] Comment on above: Order Comment: Speci men Type: BLOOD SPECIMENOrdering Facility: [facility] Address: [address] [place] [address] Performed By: #### 2 4323-8, 0-3 ####[facility] LABORATORYCLIA [id number] [place] [address] [place] Anion gap [Moles/Vol] 12 mmol/L Normal 9-18 [facility] Comment on above: Order Comment: Speci men Type: BLOOD SPECIMENOrdering Facility: [facility] Address: [address] [place] [address] Performed By: #### 2 4323-8, 3040-3 ####[facility] LABORATORYCLIA [id number] [place] [address] [place] AST [Catalytic activity/Vol] 26 U/L Normal 13-35 [facility] Comment on above: Order Comment: Speci men Type: BLOOD SPECIMENOrdering Facility: [facility] Address: [address] Performed By: #### 2 4323-8, 3039-3 ####[facility] [id number] [place] [address] [place] Bilirubin [Mass/Vol] 0.4 mg/dL Normal 0.2-1.3 [facility] Comment on above: Order Comment: Speci men Type: BLOOD SPECIMENOrdering Facility: [facility] Address: [address] Performed By: #### 2 4323-8, 3039-3 ####[facility] [id number] [place] [address] [place] Calcium [Mass/Vol] 8.6 mg/dL Normal 8.5-10.2 [facility] Comment on above: Order Comment: Speci men Type: BLOOD SPECIMENOrdering Facility: [facility] Address: [address] [address] Performed By: #### 2 4323-8, 3039-3 ####[facility] [id number] [place] [address] [place] Chloride [Moles/Vol] 107 mmol/L High 97-105 [facility] Comment on above: Order Comment: Speci men Type: BLOOD SPECIMENOrdering Facility: [facility] Address: [address] Performed By: #### 2 4323-8, 3039-3 ####[facility] LABORATORYIA [id number] [place] [address] [place] CO2 [Moles/Vol] 22 mmol/L Normal 22-30 [facility] ital Comment on above: Order Comment: Speci men Type: BLOOD SPECIMENOrdering Facility: [facility] Address: [address] Performed By: #### 2 4323-8, 0-3 ####[facility] LABORATORYIA [id number] [address] [facility] Creatinine [Mass/Vol] 0.87 mg/dL Normal 0.58-0.96 [facility] Comment on above: Order Comment: Geraldo marrero Type: BLOOD SPECIMENOrdering Facility: [facility] Address: [address] [address] Performed By: #### 2 4323-8, 3040-3 ####[facility] LABORATORYCLIA [id number] [address] [facility] Creatinine and Glomerular filtration rate.predicted panel (S/P/Bld) 90 mL/min/1.73m??? Normal >=60 [facility] Comment on above: Order Comment: Geraldo marrero Type: BLOOD SPECIMENOrdering Facility: [facility] Address: [address] [place] [address] Result Comment: Jessica mated Glomerular Filtration Rate [...] GFR. Performed By: #### 2 4323-8, 0-3 ####[facility] LABORATORYCLIA [id number] [address] [place] Glucose [Mass/Vol] 87 mg/dL Normal 74-99 [facility] Comment on above: Order Comment: Geraldo marrero Type: BLOOD SPECIMENOrdering Facility: [facility] Address: [address] [place] [address] Result Comment: The [place] [employer] (ADA) provides guidance for cutoff [...] Standards of Medical Care in Diabetes 2016, [place] [employer]. Diabetes Care. 2016.39(Suppl 1). Performed By: #### 2 4323-8, 0-3 ####[facility] LABORATORYCLIA [id number] [place] [address] [place] Potassium [Moles/Vol] 3.5 mmol/L Low 3.7-5.1 [facility] Comment on above: Order Comment: Speci men Type: BLOOD SPECIMENOrdering Facility: [facility] Address: [address] [address] Performed By: #### 2 4323-8, 3039-3 ####[facility] [id number] [place] [address] [place] Protein [Mass/Vol] 6.6 g/dL Normal 6.3-8.0 [facility] Comment on above: Order Comment: Speci men Type: BLOOD SPECIMENOrdering Facility: [facility] Address: [address] Performed By: #### 2 4323-8, 3039-3 ####[facility] [id number] [place] [address] [place] Sodium [Moles/Vol] 141 mmol/L Normal 136-144 [facility] Comment on above: Order Comment: Speci men Type: BLOOD SPECIMENOrdering Facility: [facility] Address: [address] Performed By: #### 2 4323-8, 3039-3 ####[facility] [id number] [place] [address] [place] Urea nitrogen [Mass/Vol] 9 mg/dL Normal 7-21 [facility] Comment on above: Order Comment: Speci men Type: BLOOD SPECIMENOrdering Facility: [facility] Address: [address] Performed By: #### 2 4323-8, 3040-3 ####[facility] LABORATORYIA [id number] [facility] [place] [address] [place] [address] [place] [facility] ECG COMPLETEon 11-05-2022 ECG COMPLETE Normal [facility] ED NOTEon 11-05-2022 ED NOTE HNO ID: [id number] Author: Joanne Mario RN Service: ? Author Type: Registered Nurse Type: ED Notes Filed: 11/05/2022 1:56 PM Note Text: Attempt to call report, Nurse taking patient is ROHIT. Will return call when nurse available. [facility] ED NOTE HNO ID: [id number] Author: Joanne Mario RN Service: ? Author Type: Registered Nurse Type: ED Notes Filed: 11/05/2022 1:28 PM Note Text: Patient refused all daily meds but reglan due to nausea. [facility] ED PROV NOTEon 11-05-2022 ED PROV NOTE Normal [facility] HISTORY PHYSICALon HISTORY PHYSICAL Normal [facility] pital Lipase [facility] 11-06-19 Lipase [Catalytic activity/Vol] 38 U/L Normal 16-61 [facility] Comment on above: Order Comment: Speci men Type: BLOOD SPECIMENOrdering Facility: [facility] Address: [address] [place] [id number] Performed By: #### 2 4323-8, 3040-3 ####[facility] LABORATORYIA [id number] [facility] [place] [address] [place] NURSING PROGon 11-05-2022 NURSING PROG [facility] XR ABD 2V SUPINE W UPR/DECUB /CTLon 11-05-2022 XR ABD 2V SUPINE W UPR/DECUB/CTL [facility] 25([place])D3 [facility] 2022 25-hydroxyvitamin D3 [Mass/Vol] 29.0 ng/mL Low 31.0-80.0 [facility] Comment on above: Order Comment: Speci men Type: BLOOD SPECIMENOrdering Facility: [facility] Address: [address] [place] [phone] Result Comment: Clas sification of 25 [place] Vitamin D status:Deficiency/Insufficiency: < or = 30 ng/ml.Sufficiency/Optimal Levels: 31-80 ng/mLToxicity: > 100 ng/mL.Test performed by chemiluminescent immunoassay. Performed By: #### 1 989-3 ####[facility] LABCLIA [id number] [address] [place] Amylase SerPl-cCncon 023 Amylase [Catalytic activity/Vol] 40 U/L Normal 30-104 [facility] Comment on above: Order Comment: Speci men Type: BLOOD SPECIMENOrdering Facility: [facility] Address: [address] [place], [place] [address] Performed By: #### 1 798-8, 2731-8, 2132-9, 2284-8 ####[facility] LABIA [id number] [address] [place] CBC panel Auto (Bld)on 11-04 Erythrocyte distribution width (RBC) [Ratio] 13.2 % Normal 11.5-15.0 [facility] Comment on above: Order Comment: Speci men Type: BLOOD SPECIMENOrdering Facility: [facility] Address: [address] [place], [place] [address] Performed By: #### 5 8410-2 ####[facility] LABIA [id number] [address] [place] Hematocrit (Bld) [Volume fraction] 40.5 % Normal 36.0-46.0 [facility] Comment on above: Order Comment: Speci men Type: BLOOD SPECIMENOrdering Facility: [facility] Address: [address] [place], [place] [address] Performed By: #### 5 8410-2 ####[facility] LABCLIA [id number] [place] [address] [place] Hemoglobin (Bld) [Mass/Vol] 13.6 g/dL Normal 11.5-15.5 [facility] Comment on above: Order Comment: Speci men Type: BLOOD SPECIMENOrdering Facility: [facility] Address: [address] [place], [place] [address] Performed By: #### 5 8410-2 ####[facility] LABIA [id number] [address] MCH (RBC) [Entitic mass] 30.7 pg Normal 26.0-34.0 [facility] Comment on above: Order Comment: Speci men Type: BLOOD SPECIMENOrdering Facility: [facility] Address: [address] [place], [place] [address] Performed By: #### 5 8410-2 ####[facility] LABIA [id number] [address] [place] MCHC (RBC) [Mass/Vol] 33.6 g/dL Normal 30.5-36.0 [facility] Comment on above: Order Comment: Speci men Type: BLOOD SPECIMENOrdering Facility: [facility] Address: [address] [place], [place] [address] Performed By: #### 5 8410-2 ####[facility] LABIA [id number] [address] [place] MCV (RBC) [Entitic vol] 91.4 fL Normal 80.0-100.0 [facility] Comment on above: Order Comment: Speci men Type: BLOOD SPECIMENOrdering Facility: [facility] Address: [address] [place], [place] [address] Performed By: #### 5 8410-2 ####[facility] LABIA [id number] [address] [place] Nucleated RBC (Bld) [#/Vol] 10*3/uL Normal <0.01 [facility] Comment on above: Order Comment: Speci men Type: BLOOD SPECIMENOrdering Facility: [facility] Address: [address] [place] [address] Performed By: #### 5 8410-2 ####[facility] LABIA [id number] [place] [address] [place] Platelet mean volume (Bld) [Entitic vol] 12.1 fL Normal 9.0-12.7 [facility] Comment on above: Order Comment: Speci men Type: BLOOD SPECIMENOrdering Facility: [facility] Address: [address] [place], [place] [address] Performed By: #### 5 8410-2 ####[facility] LABIA [id number] [place] [address] [place] Platelets (Bld) [#/Vol] 313 10*3/uL Normal 150-400 [facility] Comment on above: Order Comment: Speci men Type: BLOOD SPECIMENOrdering Facility: [facility] Address: [address] [place], [place] [address] Performed By: #### 5 8410-2 ####[facility] LABIA [id number] [place] [address] [place] RBC (Bld) [#/Vol] 4.43 10*6/uL Normal 3.90-5.20 [facility] Comment on above: Order Comment: Speci men Type: BLOOD SPECIMENOrdering Facility: [facility] Address: [address] [place] [address] Performed By: #### 5 8410-2 ####[facility] LABIA [id number] [place] [address] [place] WBC (Bld) [#/Vol] 6.69 10*3/uL Normal 3.70-11.00 [facility] Comment on above: Order Comment: Speci men Type: BLOOD SPECIMENOrdering Facility: [facility] Address: [address] [place] [address] Performed By: #### 5 8410-2 ####[facility] LABIA [id number] [place] [address] [place] CNCOon 11-04-2022 CNCO Letter Text Normal [facility] CNOVon 11-04-2022 CNOV Normal [facility] Comprehensive metabolic 2000 panelon 11-04-2022 Albumin [Mass/Vol] 4.3 g/dL Normal 3.9-4.9 [facility] Comment on above: Order Comment: Speci men Type: BLOOD SPECIMENOrdering Facility: [facility] Address: [address] [place] [address] Performed By: #### 5 0190-8, 3040-3, 2276-4, 63663-6 ####[facility] LABIA [id number] [place] [address] [place] ALP [Catalytic activity/Vol] 69 U/L Normal 34-123 [facility] Comment on above: Order Comment: Speci men Type: BLOOD SPECIMENOrdering Facility: [facility] Address: [address] [place] [address] Performed By: #### 5 0190-8, 3040-3, 6-4, 53401-9 ####[facility] [id number] [place] [address] [place] ALT [Catalytic activity/Vol] 16 U/L Normal 7-38 [facility] Comment on above: Order Comment: Speci men Type: BLOOD SPECIMENOrdering Facility: [facility] Address: [address] Performed By: #### 5 0190-8, 3040-3, 6-4, 11869-2 ####[facility] LABIA [id number] [place] [address] [place] Anion gap [Moles/Vol] 13 mmol/L Normal 9-18 [facility] Comment on above: Order Comment: Speci men Type: BLOOD SPECIMENOrdering Facility: [facility] Address: [address] [place] [address] Performed By: #### 5 0190-8, 3040-3, 2275-4, 67513-2 ####[facility] LABCLIA [id number] [place] [address] [place] AST [Catalytic activity/Vol] 25 U/L Normal 13-35 [facility] Comment on above: Order Comment: Speci men Type: BLOOD SPECIMENOrdering Facility: [facility] Address: [address] [place] [address] Performed By: #### 5 0190-8, 3040-3, 2275-4, 47117-3 ####[facility] LABCLIA [id number] [place] [address] [place] Bilirubin [Mass/Vol] 0.3 mg/dL Normal 0.2-1.3 [facility] Comment on above: Order Comment: Speci men Type: BLOOD SPECIMENOrdering Facility: [facility] Address: [address] [place] [address] Performed By: #### 5 0190-8, 3040-3, 2275-4, 16920-4 ####[facility] LABCLIA [id number] [place] [address] [place] Calcium [Mass/Vol] 9.1 mg/dL Normal 8.5-10.2 [facility] Comment on above: Order Comment: Speci men Type: BLOOD SPECIMENOrdering Facility: [facility] Address: [address] [place], [place] [address] Performed By: #### 5 0190-8, 3040-3, 2275-4, 10359-4 ####[facility] LABCLIA [id number] [place] [address] [place] Chloride [Moles/Vol] 105 mmol/L Normal 97-105 [facility] Comment on above: Order Comment: Speci men Type: BLOOD SPECIMENOrdering Facility: [facility] Address: [address] [place] [address] Performed By: #### 5 0190-8, 3040-3, 2275-4, 34277-4 ####[facility] [id number] [place] [address] [place] CO2 [Moles/Vol] 19 mmol/L Low 22-30 [facility] Comment on above: Order Comment: Speci men Type: BLOOD SPECIMENOrdering Facility: [facility] Address: [address] [place] [address] Performed By: #### 5 0190-8, 3040-3, 2275-4, 38450-6 ####[facility] [id number] [address] [place] Creatinine [Mass/Vol] 0.77 mg/dL Normal 0.58-0.96 [facility] Comment on above: Order Comment: Speci men Type: BLOOD SPECIMENOrdering Facility: [facility] Address: [address] [place] [address] Performed By: #### 5 0190-8, 3040-3, 2275-05, 40333-6 ####[facility] [id number] [address] [place] Creatinine and Glomerular filtration rate.predicted panel (S/P/Bld) 105 mL/min/1.73m??? Normal >=60 [facility] Comment on above: Order Comment: Speci men Type: BLOOD SPECIMENOrdering Facility: [facility] Address: [address] [place] [address] Result Comment: Jessica mated Glomerular Filtration Rate [...] Performed By: #### 5 0190-8, 3040-3, 6-4, 69706-8 ####[facility] LABCLIA [id number] [place] [id number] [place] Glucose [Mass/Vol] 224 mg/dL High 74-99 [facility] Comment on above: Order Comment: Speci men Type: BLOOD SPECIMENOrdering Facility: [facility] Address: [address] [place], [place] [phone] Result Comment: The [place] [employer] (ADA) provides guidance for cutoff [...] Standards of Medical Care in Diabetes 2016, [place] [employer]. Diabetes Care. 2016.39(Suppl 1). Performed By: #### 5 0190-8, 3040-3, 4, 18366-3 ####[facility] LABCLIA [id number] [place] [address] [place] Potassium [Moles/Vol] 3.7 mmol/L Normal 3.7-5.1 [facility] Comment on above: Order Comment: Speci men Type: BLOOD SPECIMENOrdering Facility: [facility] Address: [address] [place] [address] Performed By: #### 5 0190-8, 3040-3, 2275-4, 19355-5 ####[facility] LABCLIA [id number] [address] [address] [place] Protein [Mass/Vol] 6.9 g/dL Normal 6.3-8.0 [facility] Comment on above: Order Comment: Speci men Type: BLOOD SPECIMENOrdering Facility: [facility] Address: [address] Performed By: #### 5 0190-8, 0-3, 2275-4, 60654-0 ####[facility] LABCLIA [id number] [place] [address] [place] Sodium [Moles/Vol] 137 mmol/L Normal 136-144 [facility] Comment on above: Order Comment: Speci men Type: BLOOD SPECIMENOrdering Facility: [facility] Address: [address] [place] [address] Performed By: #### 5 0190-8, 0-3, 2275-4, 17495-1 ####[facility] LABCLIA [id number] [place] [address] [place] Urea nitrogen [Mass/Vol] 9 mg/dL Normal 7-21 [facility] Comment on above: Order Comment: Speci men Type: BLOOD SPECIMENOrdering Facility: [facility] Address: [address] [place] [address] Performed By: #### 5 0190-8, 3040-3, 4, 26292-0 ####[facility] LABCLIA [id number] [place] [address] [place] Ferritin SerPl-mCncon 2022 Ferritin [Mass/Vol] 13.2 ng/mL Low 14.7-205.1 [facility] Comment on above: Order Comment: Speci men Type: BLOOD SPECIMENOrdering Facility: [facility] Address: [address] Performed By: #### 5 0190-8, 3040-3, 4, 78012-3 ####[facility] LABCLIA [id number] [place] [address] [place] Folate SerPl-mCncon 11-05-19 Folate [Mass/Vol] 9.3 ng/mL Normal >4.7 [facility] Comment on above: Order Comment: Speci men Type: BLOOD SPECIMENOrdering Facility: [facility] Address: [address] [place] [address] Performed By: #### 1 798-8, 2731-8, 2132-9, 2284-8 ####[facility] LABCLIA [id number] [place] [address] [place] Iron and Iron binding capaci ty panelon 11-04-2022 Iron [Mass/Vol] 52 ug/dL Normal 41-186 [facility] Comment on above: Order Comment: Speci men Type: BLOOD SPECIMENOrdering Facility: [facility] Address: [address] [place] [address] Performed By: #### 5 0190-8, 3040-3, 6-4, 37979-5 ####[facility] LABCLIA [id number] [address] [place] Iron binding capacity [Mass/Vol] 348 ug/dL Normal 232-386 [facility] Comment on above: Order Comment: Speci men Type: BLOOD SPECIMENOrdering Facility: [facility] Address: [address] [place] [address] Performed By: #### 5 0190-8, 3040-3, 6-4, 83965-6 ####[facility] LABCLIA [id number] [address] [place] Iron/TIBC [Molar ratio] 14.9 % Low 15.0-57.0 [facility] Comment on above: Order Comment: Speci men Type: BLOOD SPECIMENOrdering Facility: [facility] Address: [address] [place] [address] Performed By: #### 5 0190-8, 3040-3, 2276-4, 18435-8 ####[facility] LABCLIA [id number] [place] [id number] [place] Lipase SerPl-cCncon 11-05-19 23 Lipase [Catalytic activity/Vol] 35 U/L Normal 16-61 [facility] Comment on above: Order Comment: Speci men Type: BLOOD SPECIMENOrdering Facility: [facility] Address: [address] [place] [phone] Performed By: #### 5 0190-8, 3040-3, 2276-4, 75708-4 ####[facility] LABCLIA [id number] [place] [address] [place] PTH-Intact SerPl-mCncon 10-17 Parathyrin.intact [Mass/Vol] 27 pg/mL Normal 15-65 [facility] Comment on above: Order Comment: Speci men Type: BLOOD SPECIMENOrdering Facility: [facility] Address: [address] [place] [address] Performed By: #### 1 798-8, 2731-8, 2132-9, 2284-8 ####[facility] LABCLIA [id number] [place] [address] [place] US ABD RIGHT UPPER QUADRANTo n 11-04-2022 US ABD RIGHT UPPER QUADRANT Normal [facility] VITAMIN B1 (THIAMINE), WHOLE BLOODon 11-04-2022 Thiamine (Bld) [Moles/Vol] 165.0 nmol/L Normal 84.3-213.3 [facility] Comment on above: Order Comment: Speci men Type: BLOOD SPECIMENOrdering Facility: [facility] Address: [address] [place], [place] [phone] Result Comment: This assay measures the concentration of thiamine diphosphate (TDP), the primary active form of vitamin B1. Approximately 90 percent of vitamin B1 present in whole blood is TDP. Thiamine and thiamine monophosphate, which comprise the remaining 10 percent, are not measured.This test was developed and its performance characteristics determined by [facility]'s Lucie Harmon [facility] Pathology [facility] Laboratory [facility] (RT[facility]). It has not been cleared or approved by the FDA. -[facility] is regulated under CLIA as qualified to perform high-complexity testing. This test is used for clinical purposes. It should not be regarded as investigational or for research. Performed By: #### B 1WB ####[facility] LABIA [id number] [place] [address] [place] Vit A SerPl-mCncon 3 Retinol [Mass/Vol] 0.44 mg/L Normal 0.30-1.20 [facility] Comment on above: Order Comment: Speci men Type: BLOOD SPECIMENOrdering Facility: [facility] Address: [address] [place] [address] Result Comment: This test was developed and its performance characteristics determined by [facility]'s [facility] Pathology and Laboratory [facility] (-PLMI). It has not been cleared or approved by the FDA. RT-PL[facility] is regulated under CLIA as qualified to perform high-complexity testing. This test is used for clinical purposes. It should not be regarded as investigational or for research. Performed By: #### 2 923-1 ####[facility] [id number] [place] [address] [place] Vit B12 SerPl-mCncon 023 Cobalamin (Vitamin B12) [Mass/Vol] 1018 pg/mL Normal 232-1245 [facility] Comment on above: Order Comment: Speci men Type: BLOOD SPECIMENOrdering Facility: [facility] Address: [address] [place] [address] Performed By: #### 1 798-8, 2731-8, 2132-9, 2284-8 ####[facility] [id number] [place] [address] [place] Zinc SerPl-mCncon 11-04-2022 Zinc [Mass/Vol] 51 ug/dL Low 60-120 [facility] Comment on above: Order Comment: Speci men Type: BLOOD SPECIMENOrdering Facility: [facility] Address: [address] [place] [address] Result Comment: This test was developed and its performance characteristics determined by [facility]'s Lucie Shetty [facility]ology [facility] ([facility]). It has not been cleared or approved by the FDA. -[facility] is regulated under CLIA as qualified to perform high-complexity testing. This test is used for clinical purposes. It should not be regarded as investigational or for research. Performed By: #### 5 763-8 ####[facility] LABCLIA [id number] [facility] [place] [address] [place] Ambulatory Visit Summaryon 0 11-03-2022 Ambulatory Visit Summary Normal [address] [place] [address] [place] [address]- \.br\ Medications\.br\ What How Much When Why [...] Metabolic syndrome\.br\ PCOS- polycystic ovary syndrome\.br\ \.br\ [facility] Family Medicine Office/Clini c Noteon 11-03-2022 Family Medicine Office/Clinic Note Normal [facility] Comment on above: Result Comment: Elec tronically Signed By: Jaquan Paula\.br\Date and Time Signed: 11/03/22 11:43 EDT Provider Letteron 11-03-2022 Provider Letter [facility] CBCon 11-02-2022 ABSOLUTE BAS 0.0 10*3/uL Normal 0.0-0.2 [facility] Comment on above: Performed By: #### A CBC, LIPA2, CMPF #### Testing performed at [address] [address] ABSOLUTE EOS 0.0 10*3/uL Normal 0.0-0.7 [facility] Comment on above: Performed By: #### A CBC, LIPA2, CMPF #### Testing performed at [address] [address] ABSOLUTE NEUTROPHIL COUNT 3.6 10*3/uL Normal 1.4-6.5 [facility] Comment on above: Performed By: #### A CBC, LIPA2, CMPF #### Testing performed at [address] [address] Basophils/100 WBC (Bld) 0.3 % Normal 0.0-2.0 [facility] Comment on above: Performed By: #### A CBC, LIPA2, CMPF #### Testing performed at [address] [place] [address] DTYPE AUTO DIFF Normal [facility] Comment on above: Performed By: #### A CBC, LIPA2, CMPF #### Testing performed at [address] [place] [address] Eosinophils/100 WBC (Bld) 0.1 % Normal 0.0-11.0 [facility] Comment on above: Performed By: #### A CBC, LIPA2, CMPF #### Testing performed at [address] [address] Lymphocytes (Bld) [#/Vol] 0.8 10*3/uL Low 1.2-3.4 [facility] Comment on above: Performed By: #### A CBC, LIPA2, CMPF #### Testing performed at [address] [address] Lymphocytes/100 WBC (Bld) 17.9 % Low 20.0-55.0 [facility] Comment on above: Performed By: #### A CBC, LIPA2, CMPF #### Testing performed at [address] [address] Monocytes (Bld) [#/Vol] 0.1 10*3/uL Normal 0.0-0.7 [facility] Comment on above: Performed By: #### A CBC, LIPA2, CMPF #### Testing performed at [address] [address] Monocytes/100 WBC (Bld) 2.3 % Normal 0.0-10.0 [facility] Comment on above: Performed By: #### A CBC, LIPA2, CMPF #### Testing performed at [address] [place] [address] Neutrophils/100 WBC (Bld) 79.4 % High 37.0-75.0 [facility] Comment on above: Performed By: #### A CBC, LIPA2, CMPF #### Testing performed at [address] [place] [address] Erythrocyte distribution width (RBC) [Ratio] 14.8 % High 11.5-14.5 [facility] Comment on above: Performed By: #### A CBC, LIPA2, CMPF #### Testing performed at [address] [address] Hematocrit (Bld) [Volume fraction] 38.8 % Normal 36.0-48.0 [facility] Comment on above: Performed By: #### A CBC, LIPA2, CMPF #### Testing performed at [address] [address] Hemoglobin (Bld) [Mass/Vol] 13.0 g/dL Normal 12.0-16.0 [facility] Comment on above: Performed By: #### A CBC, LIPA2, CMPF #### Testing performed at [address] [address] MCH (RBC) [Entitic mass] 30.6 pg Normal 26.0-35.0 [facility] Comment on above: Performed By: #### A CBC, LIPA2, CMPF #### Testing performed at [address] [address] MCHC (RBC) [Mass/Vol] 33.5 g/dL Normal 27.0-37.0 [facility] Comment on above: Performed By: #### A CBC, LIPA2, CMPF #### Testing performed at [address] [address] MCV (RBC) [Entitic vol] 91.2 fL Normal 80.0-100.0 [facility] Comment on above: Performed By: #### A CBC, LIPA2, CMPF #### Testing performed at [address] [address] Platelet mean volume (Bld) [Entitic vol] 9.9 fL Normal 7.4-11.0 [facility] Comment on above: Performed By: #### A CBC, LIPA2, CMPF #### Testing performed at [address] [address] Platelets (Bld) [#/Vol] 234 10*3/uL Normal 130-400 [facility] Comment on above: Performed By: #### A CBC, LIPA2, CMPF #### Testing performed at [address] [address] RBC (Bld) [#/Vol] 4.25 10*6/uL Normal 4.0-5.4 [facility] Comment on above: Performed By: #### A CBC, LIPA2, CMPF #### Testing performed at [address] [address] WBC (Bld) [#/Vol] 4.5 10*3/uL Normal 3.6-11.0 [facility] Comment on above: Performed By: #### A CBC, LIPA2, CMPF #### Testing performed at [address] [address] CBC, EDIF, PLATELETon 2022 ABSOLUTE BASOPHIL COUNT 0.0 10*3/uL 0.0 - 0.2 10*3/uL [facility] Basophils/100 WBC (Bld) 0.3 % 0.0 - 2.0 % [facility] Differential cell count method Nom (Bld) AUTO DIFF % [facility] Eosinophils (Bld) [#/Vol] 0.0 10*3/uL 0.0 - 0.7 10*3/uL [facility] Eosinophils/100 WBC (Bld) 0.1 % 0.0 - 11.0 % [facility] Erythrocyte distribution width (RBC) [Ratio] 14.8 % High 11.5 - 14.5 % [facility] Hematocrit (Bld) [Volume fraction] 38.8 % 36.0 - 48.0 % [facility] Hemoglobin (Bld) [Mass/Vol] 13.0 g/dL [facility] Interpretation and review of laboratory results Abnormal [facility] Lymphocytes (Bld) [#/Vol] 0.8 10*3/uL Low 1.2 - 3.4 10*3/uL [facility] Lymphocytes/100 WBC (Bld) 17.9 % Low 20.0 - 55.0 % [facility] MCH (RBC) [Entitic mass] 30.6 pg 26.0 - 35.[address] [facility] MCHC (RBC) [Mass/Vol] 33.5 g/dL [facility] MCV (RBC) [Entitic vol] 91.[address] [facility] Monocytes (Bld) [#/Vol] 0.1 10*3/uL 0.0 - 0.7 10*3/uL [facility] Monocytes/100 WBC (Bld) 2.3 % 0.0 - 10.0 % [facility] Neutrophils (Bld) [#/Vol] 3.6 10*3/uL 1.4 - 6.5 10*3/uL [facility] Neutrophils/100 WBC (Bld) 79.4 % High 37.0 - 75.0 % [facility] Platelet mean volume (Bld) [Entitic vol] 9.9 fL [facility] Platelets (Bld) [#/Vol] 234 10*3/uL 130 - 400 10*3/uL [facility] RBC (Bld) [#/Vol] 4.25 10*6/uL 4.0 - 5.4 10*6/u L [facility] WBC (Bld) [#/Vol] 4.5 10*3/uL 3.6 - 11.0 10*3/u L [facility] CMP FASTINGon 11-02-2022 A:G RATIO 1.5 RATIO Normal [facility] Comment on above: Performed By: #### A CBC, LIPA2, CMPF #### Testing performed at [address] [address] ALBUMIN 4.4 G/dl Normal 3.5-5.0 [facility] Comment on above: Performed By: #### A CBC, LIPA2, CMPF #### Testing performed at [address] [address] ALP [Catalytic activity/Vol] 87 U/L Normal 38-126 [facility] Comment on above: Performed By: #### A CBC, LIPA2, CMPF #### Testing performed at [address] [address] ALT [Catalytic activity/Vol] 22 U/L Normal <35 [facility] Comment on above: Performed By: #### A CBC, LIPA2, CMPF #### Testing performed at [address] [address] AST [Catalytic activity/Vol] 34 U/L Normal 14-36 [facility] Comment on above: Performed By: #### A CBC, LIPA2, CMPF #### Testing performed at [address] [address] Bilirubin [Mass/Vol] 0.4 mg/dL Normal 0.2-1.3 [facility] Comment on above: Performed By: #### A CBC, LIPA2, CMPF #### Testing performed at [address] [address] Calcium [Mass/Vol] 9.0 mg/dL Normal 8.4-10.2 [facility] Comment on above: Performed By: #### A CBC, LIPA2, CMPF #### Testing performed at [address] [address] Chloride [Moles/Vol] 106 mmol/L Normal 98-107 [facility] Comment on above: Result Comment: Yessy plascencia note: Triglyceride levels of 600mg/dL or higher may positively bias chloride results by approximately 2.1 mmol Performed By: #### A CBC, LIPA2, CMPF #### Testing performed at [address] [address] CO2 [Moles/Vol] 22 mmol/L Normal 22-30 [facility] Comment on above: Performed By: #### A CBC, LIPA2, CMPF #### Testing performed at [address] [address] Creatinine [Mass/Vol] 0.80 mg/dL Normal 0.70-1.20 [facility] Comment on above: Performed By: #### A CBC, LIPA2, CMPF #### Testing performed at [address] [address] EST. GFR, 106 ml/min/1.73sq.m [facility] Comment on above: Performed By: #### A CBC, LIPA2, CMPF #### Testing performed at [address] [address] EST. GFR,Non 88 ml/min/1.73sq.m [facility] Comment on above: Performed By: #### A CBC, LIPA2, CMPF #### Testing performed at [address] [address] GFR Information Average GFR for 30-39 years old = 107. Normal [facility] Comment on above: Result Comment: Accounts Specialist alejandra Kidney disease, GFR = <60. Kidney failure, GFR = <15. The GFR estimate is not adjusted for extreme body surface area or acute process, nor has it been validated for women or ethnic groups other than and . Performed By: #### A CBC, LIPA2, CMPF #### Testing performed at [address] [address] Glucose [Mass/Vol] 119 mg/dL High 70-100 [facility] Comment on above: Result Comment: NORMAL <100 mg/dL PREDIABETES 101-126 mg/dL DIABETES 126 mg/dL or higher Performed By: #### A CBC, LIPA2, CMPF #### Testing performed at [address] [address] Potassium [Moles/Vol] 4.2 mmol/L Normal 3.5-5.1 [facility] Comment on above: Performed By: #### A CBC, LIPA2, CMPF #### Testing performed at [address] [address] Protein [Mass/Vol] 7.3 g/dL Normal 6.3-8.2 [facility] Comment on above: Performed By: #### A CBC, LIPA2, CMPF #### Testing performed at [address] [address] Sodium [Moles/Vol] 138 mmol/L Normal 137-145 [facility] Comment on above: Performed By: #### A CBC, LIPA2, CMPF #### Testing performed at [address] [address] Urea nitrogen [Mass/Vol] 8 mg/dL Normal 7-20 [facility] Comment on above: Performed By: #### A CBC, LIPA2, CMPF #### Testing performed at [address] [address] CNPNon 11-02-2022 CNPN Normal [facility] METABOLIC PANE Nestor 11-02-2022 Albumin [Mass/Vol] 4.4 G/dl 3.5 - 5.0 G/dl [facility] Albumin/Globulin [Mass ratio] 1.5 {ratio} RATIO [facility] ALP [Catalytic activity/Vol] 87 U/L [facility] ALT [Catalytic activity/Vol] 22 U/L NINF [facility] AST [Catalytic activity/Vol] 34 U/L [facility] Bilirubin [Mass/Vol] 0.4 mg/dL [facility] Calcium [Mass/Vol] 9.0 mg/dL [facility] Chloride [Moles/Vol] 106 mmol/L [facility] Comment on above: Please note: Triglyc eride levels of 600mg/dL or higher may positively bias chloride results by approximately 2.1 mmol CO2 [Moles/Vol] 22 mmol/L [facility] Creatinine [Mass/Vol] 0.80 mg/dL [facility] GFR COMMENT Average GFR for 30-39 years old = 107. [facility] Comment on above: Chronic Kidney disea se, GFR = <60. Kidney failure, GFR = <15. The GFR estimate is not adjusted for extreme body surface area or acute process, nor has it been validated for women or ethnic groups other than and . GFR/1.73 sq M.predicted among blacks MDRD (S/P/Bld) [Vol rate/Area] 106 mL/min/{1.73_m2} ml/min/1.73sq.m [facility] GFR/1.73 sq M.predicted among non-blacks MDRD (S/P/Bld) [Vol rate/Area] 88 mL/min/{1.73_m2} ml/min/1.73sq.m [facility] Glucose post fast [Mass/Vol] 119 mg/dL High [facility] Comment on above: NORMAL <100 mg/dL PREDIABETES 101-126 mg/dL DIABETES 126 mg/dL or higher Interpretation and review of laboratory results Abnormal [facility] Potassium [Moles/Vol] 4.2 mmol/L [facility] Protein [Mass/Vol] 7.3 g/dL [facility] Sodium [Moles/Vol] 138 mmol/L [facility] Urea nitrogen [Mass/Vol] 8 mg/dL [facility] HCG ( test) Ql (U)o n 11-02-[address] [facility] HCG QUALITATIVE, URINEon HCG ( test) Ql (U) Negative NEGATIVE [facility] LACTATE, BLOODon 11-02-2022 Lactate [Moles/Vol] 1.3 mmol/L 0.7 - 2.0 mmol/L [facility] LACTATE,BLOODon 11-02-2022 Lactate [Moles/Vol] 1.3 mmol/L Normal 0.7-2.0 [facility] Comment on above: Performed By: #### L ACTAC #### Testing performed at [address] [address] LIPASEon 11-02-2022 Lipase [Catalytic activity/Vol] 105 U/L 23 - 300 U/L [facility] LIPASE,SERUMon 11-02-2022 LIPASE,SERUM 105 U/L Normal 23-300 [facility] Comment on above: Performed By: #### A CBC, LIPA2, CMPF #### Testing performed at [address] [address] No Panel Informationon 11-[address] [facility] RAD - MISCon 11-02-2022 RAD - MISC [id number] Normal [facility] URINALYSIS, MACROon 11-03-19 Bilirubin Ql (U) Negative NEGATIVE [facility] Clarity (U) CLEAR CLEAR [facility] Color (U) YELLOW YELLOW [facility] Glucose Test strip (U) [Mass/Vol] Negative NEGATIVE mg/dl [facility] Hemoglobin Ql (U) Negative NEGATIVE [facility] Interpretation and review of laboratory results Abnormal [facility] Ketones (U) [Mass/Vol] Negative NEGATIVE mg/dl [facility] Leukocyte esterase Test strip Ql (U) Negative NEGATIVE [facility] Nitrite Ql (U) Negative NEGATIVE [facility] pH (U) 8.5 [pH] High 5.0 - 7.0 [facility] Protein Ql (U) Negative NEGATIVE mg/dl [facility] Specific gravity (U) [Rel density] 1.020 1.010 - 1.[address] [facility] Urobilinogen (U) [Mass/Vol] 1.0 mg/dL [facility] URINE HCG QUALon 11-02-2022 Beta HCG ( test) Ql (U) Negative Normal NEGATIVE [facility] Comment on above: Performed By: #### U HCGT, UMAC #### Testing performed at [address] [address] URINE MACROSCOPICon 11-03-19 23 Bilirubin Ql (U) Negative Normal NEGATIVE [facility] Comment on above: Performed By: #### U HCGT, UMAC #### Testing performed at [address] [address] Clarity (U) CLEAR Normal CLEAR [facility] Comment on above: Performed By: #### U HCGT, UMAC #### Testing performed at [address] [address] Color (U) YELLOW Normal YELLOW [facility] Comment on above: Performed By: #### U HCGT, UMAC #### Testing performed at [address] [address] Glucose Ql (U) Negative Normal NEGATIVE [facility] Comment on above: Performed By: #### U HCGT, UMAC #### Testing performed at [address] [address] pH (U) 8.5 [pH] High 5.0-7.0 [facility] Comment on above: Performed By: #### U HCGT, UMAC #### Testing performed at [address] [place] [address] URINE HEMOGLOBIN Negative Normal NEGATIVE [facility] Comment on above: Performed By: #### U HCGT, UMAC #### Testing performed at [address] [place] [address] URINE KETONE Negative Normal NEGATIVE [facility] Comment on above: Performed By: #### U HCGT, UMAC #### Testing performed at [address] [address] URINE LEUKOTEST Negative Normal NEGATIVE [facility] Comment on above: Performed By: #### U HCGT, UMAC #### Testing performed at [address] [address] URINE NITRATES Negative Normal NEGATIVE [facility] Comment on above: Performed By: #### U HCGT, UMAC #### Testing performed at [address] [address] URINE SPEC GRAVITY 1.020 Normal 1.010-1.025 [facility] Comment on above: Performed By: #### U HCGT, UMAC #### Testing performed at [address] [address] URINE TOTAL PROTEIN Negative Normal NEGATIVE [facility] Comment on above: Performed By: #### U HCGT, UMAC #### Testing performed at [address] [address] Urobilinogen Qn (U) 1.0 {Munir'U}/dL Normal 0.2-1.0 [facility] Comment on above: Performed By: #### U HCGT, UMAC #### Testing performed at [address] [address] CBC with Auto Differentialon 10-31-2022 Basophils (Bld) [#/Vol] [facility] Basophils/100 WBC (Bld) 0 % 0 - 2 % [facility] Eosinophils (Bld) [#/Vol] 0.03 10*3/uL [facility] Eosinophils/100 WBC (Bld) 0 % Low 1 - 4 % [facility] Erythrocyte distribution width (RBC) [Ratio] 12.8 % 11.8 - 14.4 % [facility] Hematocrit (Bld) [Volume fraction] 38.9 % 36.3 - 47.1 % [facility] Hemoglobin (Bld) [Mass/Vol] 13.3 g/dL 11.9 - 15.1 g/dL [facility] Immature granulocytes (Bld) [#/Vol] [facility] Immature granulocytes/100 WBC (Bld) 0 % 0 [facility] Interpretation and review of laboratory results Abnormal [facility] Lymphocytes/100 WBC (Bld) 19 % Low 24 - 43 % [facility] Lymphocytes/100 WBC (Bld) 1.46 % [facility] MCH (RBC) [Entitic mass] 30.6 pg 25.2 - 33.5 pg [facility] MCHC (RBC) [Mass/Vol] 34.2 g/dL 28.4 - 34.8 g/dL [facility] MCV (RBC) [Entitic vol] 89.4 fL 82.6 - 102.9 fL [facility] Monocytes/100 WBC (Bld) 5 % 3 - 12 % [facility] Monocytes/100 WBC (Bld) 0.41 % [facility] Neutrophils/100 WBC (Bld) 76 % High 36 - 65 % [facility] Nucleated RBC/100 WBC (Bld) [Ratio] 0.0 % 0.0 per 100 WBC [facility] Platelet mean volume (Bld) [Entitic vol] 12.0 fL 8.1 - 13.5 fL [facility] Platelets (Bld) [#/Vol] 246 10*3/uL [facility] RBC (Bld) [#/Vol] 4.35 10*6/uL 3.95 - 5.11 m/uL [facility] Segmented neutrophils/100 WBC (Bld) 5.66 % [facility] WBC other (Bld) [#/Vol] 7.6 [facility] CBC with Diffon 10-31-2022 Abs. Basophil <0.03 Normal 0.00-0.20 [facility] Comment on above: Performed By: #### L JUDITH BROWN, CDP #### [facility] [address] [place] [address] [place] [address] [employer] Set Up Operator: Baldomero Espinoza MD Abs.Imm.Granulocyte <0.03 Normal 0.00-0.30 [facility] Comment on above: Performed By: #### L JUDITH BROWN, CDP #### [facility] [address] [place] [address] [employer] Up Operator: Baldomero Espinoza MD Abs.Neutrophil (Seg) 5.66 k/uL Normal 1.50-8.10 [facility] Comment on above: Performed By: #### L JUDITH BROWN, CDP #### [facility] [address] [place] [address] [place] [address] [employer] Set Up Operator: Baldomero Espinoza MD Basophils/100 WBC (Bld) 0 % Normal 0-2 [facility] Comment on above: Performed By: #### L IP CP, CDP #### [address] [place], [place] [id number] [employer] Set Up Operator: Baldomero Espinoza MD Eosinophils (Bld) [#/Vol] 0.03 10*3/uL Normal 0.00-0.44 [facility] Comment on above: Performed By: #### L IP, CP, CDP #### [address] [place], [place] [id number] [employer] Set Up Operator: Baldomero Espinoza MD Eosinophils/100 WBC (Bld) 0 % Low 1-4 [facility] Comment on above: Performed By: #### L KEVIN, CP, CDP #### [address] [place], [facility]83 [employer] Set Up Operator: Baldomero Espinoza MD Erythrocyte distribution width (RBC) [Ratio] 12.8 % Normal 11.8-14.4 [facility] Comment on above: Performed By: #### L JUDITH BROWN, CDP #### [address] [place], [place] [phone] [employer] Set Up Operator: Baldomero Espinoza MD Hematocrit (Bld) [Volume fraction] 38.9 % Normal 36.3-47.1 [facility] Comment on above: Performed By: #### L IP CP, CDP #### [address] [place], [place] [id number] [employer] Set Up Operator: Baldomero Espinoza MD Hemoglobin (Bld) [Mass/Vol] 13.3 g/dL Normal 11.9-15.1 [facility] Comment on above: Performed By: #### L IP, CP, CDP #### [address] [place] [address] [employer] Set Up Operator: Baldomero Espinoza MD Immature granulocytes/100 WBC (Bld) 0 % Normal 0 [facility] Comment on above: Performed By: #### L IP, CP, CDP #### [facility] [address] [place] [address] [place] [address] [employer] Set Up Operator: Baldomero Espinoza MD Lymphocytes (Bld) [#/Vol] 1.46 10*3/uL Normal 1.10-3.70 [facility] Comment on above: Performed By: #### L IP, CP, CDP #### [address] [place] [address] [employer] Up Operator: Baldomero Espinoza MD Lymphocytes/100 WBC (Bld) 19 % Low 24-43 [facility] Comment on above: Performed By: #### L IP, CP, CDP #### [address] [place], [place] [phone] [employer] Set Up Operator: Baldomero Espinoza MD MCH (RBC) [Entitic mass] 30.6 pg Normal 25.2-33.5 [facility] Comment on above: Performed By: #### L KEVIN CP, CDP #### [address] [place] [address] [employer] Set Up Operator: Baldomero Espinoza MD MCHC (RBC) [Mass/Vol] 34.2 g/dL Normal 28.4-34.8 [facility] Comment on above: Performed By: #### L IP CP, CDP #### [address] [place], [place] [id number] [employer] Set Up Operator: Baldomero Espinoza MD MCV (RBC) [Entitic vol] 89.4 fL Normal 82.6-102.9 [facility] Comment on above: Performed By: #### L IP, CP, CDP #### [address] [place] [address] [employer] Set Up Operator: Balodmero Espinoza MD Monocytes (Bld) [#/Vol] 0.41 10*3/uL Normal 0.10-1.20 [facility] Comment on above: Performed By: #### L IP, CP, CDP #### [facility] [address] [place], [place] [phone] [employer] Set Up Operator: Baldomero Espinoza MD Monocytes/100 WBC (Bld) 5 % Normal 3-12 [facility] Comment on above: Performed By: #### L IP, CP, CDP #### [facility] [address] [place], [facility]83 [employer] Up Operator: Baldomero Espinoza MD Neutrophil (Seg) 76 % High 36-65 [facility] Comment on above: Performed By: #### L IP, CP, CDP #### [address] [place], [facility]83 [employer] Up Operator: Baldomero Espinoza MD NRBC Automated 0.0 per 100 WBC Normal 0.0 [facility] Comment on above: Performed By: #### L IP, CP, CDP #### [address] [place], [facility]83 [employer] Set Up Operator: Baldomero Espinoza MD Platelet mean volume (Bld) [Entitic vol] 12.0 fL Normal 8.1-13.5 [facility] Comment on above: Performed By: #### L IP, CP, CDP #### [address] [place], [place] [address] [employer] Set Up Operator: Baldomero Espinoza MD Platelets (Bld) [#/Vol] 246 10*3/uL Normal 138-453 [facility] Comment on above: Performed By: #### L IP, CP, CDP #### [address] [place], [place] [phone] [employer] Set Up Operator: Baldomero Espinoza MD RBC (Bld) [#/Vol] 4.35 10*6/uL Normal 3.95-5.11 [facility] Comment on above: Performed By: #### L IP, CP, CDP #### [facility] [address] [place] [address] [employer] Set Up Operator: Baldomero Espinoza MD WBC (Bld) [#/Vol] 7.6 10*3/uL Normal 3.5-11.3 [facility] Comment on above: Performed By: #### L JUDITH BROWN, CDP #### [facility] [address] [place] [address] [employer] Set Up Operator: Baldomero Espinoza MD [facility] 10-31-2022 Albumin [Mass/Vol] 4.5 g/dL 3.5 - 5.2 g/dL [facility] Albumin/Globulin [Mass ratio] 1.7 {ratio} 1.0 - 2.5 [facility] ALP [Catalytic activity/Vol] 76 U/L 35 - 104 U/L [facility] ALT [Catalytic activity/Vol] 14 U/L 5 - 33 U/L [facility] Anion gap [Moles/Vol] 12 mmol/L 9 - 17 mmol/L [facility] AST [Catalytic activity/Vol] 24 U/L NINF - 32 U/L [facility] Bilirubin [Mass/Vol] 0.3 mg/dL 0.3 - 1.2 mg/dL [facility] Calcium [Mass/Vol] 9.1 mg/dL 8.6 - 10.4 mg/dL [facility] Chloride [Moles/Vol] 106 mmol/L 98 - 107 mmol/L [facility] CO2 [Moles/Vol] 18 mmol/L Low 20 - 31 mmol/L [facility] Creatinine [Mass/Vol] 0.7 mg/dL 0.5 - 0.9 mg/dL [facility] GFR/1.73 sq M.predicted MDRD (S/P/Bld) [Vol rate/Area] - PINF [facility] Comment on above: These [...] 87 mg/dL 70 - 99 mg/dL [facility] Interpretation and review of laboratory results Abnormal [facility] Potassium [Moles/Vol] 3.8 mmol/L 3.7 - 5.3 mmol/L [facility] Protein [Mass/Vol] 7.2 g/dL 6.4 - 8.3 g/dL [facility] Sodium [Moles/Vol] 136 mmol/L 135 - 144 mmol/L [facility] Urea nitrogen [Mass/Vol] 7 mg/dL 6 - 20 mg/dL [facility] Urea nitrogen/Creatinine [Mass ratio] 10 mg/mg 9 - 20 [facility] Comp Metabolic Profon 2022 Albumin [Mass/Vol] 4.5 g/dL Normal 3.5-5.2 [facility] Comment on above: Performed By: #### L IP, CP, CDP #### [facility] [address] [place] [address] [place] [address] [employer] Set Up Operator: Baldomero Espinoza MD Albumin/Glob Ratio 1.7 Normal 1.0-2.5 [facility] Comment on above: Performed By: #### L IP, CP, CDP #### [facility] [address] [place] [address] [employer] Set Up Operator: Baldomero Espinoza MD Alkaline Phos 76 U/L Normal 35-104 [facility] Comment on above: Performed By: #### L IP, CP, CDP #### [facility] [address] [place] [address] [employer] Set Up Operator: Baldomero Espinoza MD ALT [Catalytic activity/Vol] 14 U/L Normal 5-33 [facility] Comment on above: Performed By: #### L IP, CP, CDP #### [facility] [address] [place] [address] [place] [address] [employer] Set Up Operator: Baldomero Espinoza MD Anion gap [Moles/Vol] 12 mmol/L Normal 9-17 [facility] Comment on above: Performed By: #### L IP, CP, CDP #### [facility] [address] [place] [address] [employer] Set Up Operator: Baldomero Esipnoza MD AST [Catalytic activity/Vol] 24 U/L Normal <32 [facility] Comment on above: Performed By: #### L IP, CP, CDP #### [facility] [address] [place] [address] [employer] Set Up Operator: Baldomero Espinoza MD Bilirubin [Mass/Vol] 0.3 mg/dL Normal 0.3-1.2 [facility] Comment on above: Performed By: #### L IP, CP, CDP #### [facility] [address] [place] [address] [place], [place] [phone] [employer] Set Up Operator: Baldomero Espinoza MD BUN/CRE Ratio 10 Normal 9-20 [facility] Comment on above: Performed By: #### L IP, CP, CDP #### [address] [place] [address] [employer] Set Up Operator: Baldomero Espinoza MD Calcium [Mass/Vol] 9.1 mg/dL Normal 8.6-10.4 [facility] Comment on above: Performed By: #### L IP, CP, CDP #### [facility] [address] [place] [address] [place], [place] [phone] [employer] Set Up Operator: Baldomero Espinoza MD Chloride [Moles/Vol] 106 mmol/L Normal 98-107 [facility] Comment on above: Performed By: #### L IP, CP, CDP #### [address] [place] [address] [employer] Set Up Operator: Baldomero Espinoza MD CO2 [Moles/Vol] 18 mmol/L Low 20-31 [facility] Comment on above: Performed By: #### L IP CP, CDP #### [facility] [address] [place] [address] [employer] Set Up Operator: Baldomero Espinoza MD Creatinine [Mass/Vol] 0.7 mg/dL Normal 0.5-0.9 [facility] Comment on above: Performed By: #### L IP, CP, CDP #### [facility] [address] [place] [address] [employer] Set Up Operator: Baldomero Espinoza MD GFR/1.73 sq M.predicted among non-blacks MDRD (S/P/Bld) [Vol rate/Area] mL/min/{1.73_m2} Normal >60 [facility] Comment on above: Result Comment: These [...] By: #### L KEVIN CP, CDP #### [address] [place] [address] [employer] Set Up Operator: Baldomero Espinoza MD Glucose [Mass/Vol] 87 mg/dL Normal 70-99 [facility] Comment on above: Performed By: #### L KEVIN CP, CDP #### [facility] [address] [place] [address] [employer] Set Up Operator: Baldomero Espinoza MD Potassium [Moles/Vol] 3.8 mmol/L Normal 3.7-5.3 [facility] Comment on above: Performed By: #### L KEVIN CP, CDP #### [facility] [address] [place] [address] [employer] Set Up Operator: Baldomero Espinoza MD Protein [Mass/Vol] 7.2 g/dL Normal 6.4-8.3 [facility] Comment on above: Performed By: #### L JUDITH BROWN, CDP #### [facility] [address] [place], [place] [phone] [employer] Set Up Operator: Baldomero Espinoza MD Sodium [Moles/Vol] 136 mmol/L Normal 135-144 [facility] Comment on above: Performed By: #### L JUDITH BROWN, CDP #### [facility] [address] [place], [place] [phone] [employer] Set Up Operator: Baldomero Espinoza MD Urea nitrogen [Mass/Vol] 7 mg/dL Normal 6-20 [facility] Comment on above: Performed By: #### L JUDITH BROWN, CDP #### [facility] [address] [place], [place] [phone] [employer] Set Up Operator: Baldomero Espinoza MD Lipaseon 10-31-2022 Lipase [Catalytic activity/Vol] 43 U/L Normal 13-60 [facility] Comment on above: Performed By: #### L JUDITH BROWN, CDP #### [facility] [address] [place] [address] [employer] Set Up Operator: Baldomero Espinoza MD Lipase [Catalytic activity/Vol] 43 U/L 13 - 60 U/L [facility] Microscopic Urinalysison Bacteria LM Ql (Urine sed) 1+ Abnormal None [facility] Epithelial cells LM.HPF (Urine sed) [#/Area] 2 TO 5 [facility] Interpretation and review of laboratory results Abnormal [facility] RBC LM.HPF (Urine sed) [#/Area] None [facility] WBC LM.HPF (Urine sed) [#/Area] None [facility] No Panel Informationon 10-31 [facility] UA w/Reflex Cultureon 2022 Bilirubin, SemiQt,Ur Negative Normal NEG [facility] Comment on above: Performed By: #### U MICAO, UAX ####[facility] [address] [place] [address] Lab Director: Baldomero Espinoza MD Blood, Urine Negative Normal NEG [facility] Comment on above: Performed By: #### U MICAO, UAX ####[address] , [place] [id number] Lab Director: Baldomero Espinoza MD Clarity (U) Clear Normal CLEAR [facility] Comment on above: Performed By: #### U MICAO, UAX ####[address] [place] [address] Lab Director: Baldomero Espinoza MD Color (U) Yellow Normal YEL [facility] Comment on above: Performed By: #### U MICAO, UAX ####[address] , [place] [id number] Lab Director: Baldomero Espinoza MD Glucose Ql (U) Negative Normal NEG [facility] Comment on above: Performed By: #### U MICAO, UAX ####[address] [place] [address] Lab Director: Baldomero Espinoza MD Ketones Ql (U) Negative Normal NEG [facility] Comment on above: Performed By: #### U MICAO, UAX ####[address] [place] [address] Lab Director: Baldomero Espinoza MD Leukocyte esterase Test strip Ql (U) Negative Normal NEG [facility] Comment on above: Performed By: #### U MICAO, UAX ####[address] [place] [address] Lab Director: Baldomero Espinoza MD Nitrite,Ur Negative Normal NEG [facility] Comment on above: Performed By: #### U MICAO, UAX ####[address] [place] [address] lab Director: Baldomero Espinoza MD PH,Ur 7.0 Normal 5.0-9.0 [facility] Comment on above: Performed By: #### U MICAO, UAX ####[facility] [place] , [place] [id number] lab Director: Baldomero Espinoza MD Protein Ql (U) Negative Normal NEG [facility] Comment on above: Performed By: #### U MICAO, UAX ####[facility] [place] , [place] [id number] lab Director: Baldomero Espinoza MD Spec. [place],Ur 1.015 Normal 1.010-1.020 [facility] Comment on above: Performed By: #### U MICAO, UAX ####[address] , [place] [id number] lab Director: Baldomero Espinoza MD Urobilinogen,Ur Normal Normal 0.0-1.0 [facility] Comment on above: Performed By: #### U LAURENO, UAX ####[address] , [place] [id number] lab Director: Baldomero Espinoza MD Urinalysis with Reflex to Cu ltureon 10-31-2022 Bilirubin Ql (U) Negative NEGATIVE [facility] Clarity (U) Clear Clear [facility] Color (U) Yellow Yellow [facility] Glucose Test strip (U) [Mass/Vol] Negative NEGATIVE mg/dL [facility] Hemoglobin Auto test strip Ql (U) Negative NEGATIVE [facility] Ketones (U) [Mass/Vol] Negative NEGATIVE mg/dL [facility] Leukocyte esterase Test strip Ql (U) Negative NEGATIVE [facility] Nitrite Ql (U) Negative NEGATIVE [facility] pH (U) 7.0 [pH] 5.0 - 9.0 [facility] Protein (U) [Mass/Vol] Negative NEGATIVE mg/dL [facility] Specific gravity (U) [Rel density] 1.015 1.010 - 1.020 [facility] Urobilinogen Qn (U) Normal 0.0 - 1.0 EU/dL [facility] Urinalysis,Microon 3 Bacteria 1+ Abnormal NONE [facility] Comment on above: Performed By: #### U MICAO, UAX ####[facility] [place] [address] [facility] Director: Baldomero Espinoza MD Epithelial cells LM Ql (Urine sed) 2 TO 5 Normal 0-25 [facility] Comment on above: Performed By: #### U LAURENO, UAX ####[address] , [place] [address] lab Director: Baldomero Espinoza MD Urine RBC's None Normal 0-2 [facility] Comment on above: Performed By: #### U LAURENO, UAX ####[address] [place] [address] lab Director: Baldomero Espinoza MD Urine WBC's None Normal 0-5 [facility] Comment on above: Performed By: #### U MICAO, UAX ####[address] [place] [address] lab Director: Baldomero Espinoza MD XR [...] E Regalado MD 10/31/22 Final result Normal [facility] 1. No acute vertebral body height loss or malalignment within the lumbar spine. 2. Mild anterior wedging of lower thoracic vertebral bodies, similar to the prior CT of 07/27/2021. 3. Prior cholecystectomy. Moderate stool burden. [facility] EXAMINATION: 5 XRAY VIEWS [...] sacral arcuate lines appear intact. Pelvic phleboliths. [facility] Luis E Regalado MD [...] 3. Prior cholecystectomy. Moderate stool burden. [facility] Radiology Study observation (narrative) [facility] XR LUMBAR SPINE (MIN 4 VIEWS )Ordered By: Luis E Regalado on 10-31-2022 [facility] Work Phone: Transfer Inon 10-30-2022 Transfer In [id number] 6#1.00CD:127 [facility] Discharge Instructionson Discharge Instructions [id number] 183#1.00CD:127 [facility] Comment on above: Other Comment: [facility] Auth for Release of Medical Recordson 10-28-2022 Auth for Release of Medical Records [id number] 7#1.00CD:127 [facility] CBC panel Auto (Bld)on 10-28 Erythrocyte distribution width (RBC) [Ratio] 13.2 % Normal 11.5-15.0 [facility] Comment on above: Order Comment: Speci men Type: BLOOD SPECIMENOrdering Facility: [facility] Address: [address] [place] [address] Performed By: #### 5 8410-2 ####[facility] LABORATORYCLIA [id number] [address] [facility] Hematocrit (Bld) [Volume fraction] 33.4 % Low 36.0-46.0 [facility] Comment on above: Order Comment: Speci men Type: BLOOD SPECIMENOrdering Facility: [facility] Address: [address] [address] Performed By: #### 5 8410-2 ####[facility] LABORATORYCLIA [id number] [facility].[address] [facility] Hemoglobin (Bld) [Mass/Vol] 10.9 g/dL Low 11.5-15.5 [facility] Comment on above: Order Comment: Speci men Type: BLOOD SPECIMENOrdering Facility: [facility] Address: [address] [address] Performed By: #### 5 8410-2 ####[facility] LABORATORYIA [id number] [address] [place] MCH (RBC) [Entitic mass] 30.4 pg Normal 26.0-34.0 [facility] Comment on above: Order Comment: Speci men Type: BLOOD SPECIMENOrdering Facility: [facility] Address: [address] [address] Performed By: #### 5 8410-2 ####[facility] LEM[facility]OREIA [id number] [address] [place] MCHC (RBC) [Mass/Vol] 32.6 g/dL Normal 30.5-36.0 [facility] Comment on above: Order Comment: Speci men Type: BLOOD SPECIMENOrdering Facility: [facility] Address: [address] [place] [address] Performed By: #### 5 8410-2 ####[facility] [id number] [address] [place] MCV (RBC) [Entitic vol] 93.3 fL Normal 80.0-100.0 [facility] Comment on above: Order Comment: Speci men Type: BLOOD SPECIMENOrdering Facility: [facility] Address: [address] Performed By: #### 5 8410-2 ####[facility] LABORATORYIA [id number] [address] Nucleated RBC (Bld) [#/Vol] 10*3/uL Normal <0.01 [facility] Comment on above: Order Comment: Speci men Type: BLOOD SPECIMENOrdering Facility: [facility] Address: [address] [place], [place] [address] Performed By: #### 5 8410-2 ####[facility] LABORATORYIA [id number] [facility].[place] [id number] [place] Platelet mean volume (Bld) [Entitic vol] 11.7 fL Normal 9.0-12.7 [facility] Comment on above: Order Comment: Speci men Type: BLOOD SPECIMENOrdering Facility: [facility] Address: [address] Performed By: #### 5 8410-2 ####[facility] LABORATORYIA [id number] [place] [address] [place] Platelets (Bld) [#/Vol] 174 10*3/uL Normal 150-400 [facility] Comment on above: Order Comment: Speci men Type: BLOOD SPECIMENOrdering Facility: [facility] Address: [address] [address] Performed By: #### 5 8410-2 ####[facility] [id number] [place] [address] [place] RBC (Bld) [#/Vol] 3.58 10*6/uL Low 3.90-5.20 [facility] Comment on above: Order Comment: Speci men Type: BLOOD SPECIMENOrdering Facility: [facility] Address: [address] [place] [address] Performed By: #### 5 8410-2 ####[facility] [id number] [place] [address] [place] WBC (Bld) [#/Vol] 4.62 10*3/uL Normal 3.70-11.00 [facility] Comment on above: Order Comment: Speci men Type: BLOOD SPECIMENOrdering Facility: [facility] Address: [address] [place] [address] Performed By: #### 5 8410-2 ####[facility] LABORATORYIA [id number] [facility].[place] [id number] [facility] [place] CNDSon 10-28-2022 CNDS Normal [facility] Comprehensive metabolic 2000 panelon 10-28-2022 Albumin [Mass/Vol] 3.2 g/dL Low 3.9-4.9 [facility] Comment on above: Order Comment: Speci men Type: BLOOD SPECIMENOrdering Facility: [facility] Address: [address] [place] [address] Performed By: #### 2 4323-8, , 2776- ####[facility] LABORATORYCLIA [id number] [place] [address] [place] ALP [Catalytic activity/Vol] 54 U/L Normal 34-123 [facility] Comment on above: Order Comment: Speci men Type: BLOOD SPECIMENOrdering Facility: [facility] Address: [address] [place] [address] Performed By: #### 2 4323-8, , 2776-02 ####[facility] LABORATORYCLIA [id number] [facility] [place] [address] [place] ALT [Catalytic activity/Vol] 11 U/L Normal 7-38 [facility] Comment on above: Order Comment: Speci men Type: BLOOD SPECIMENOrdering Facility: [facility] Address: [address] [place] [address] Performed By: #### 2 4323-8, , 2776-02 ####[facility] LABORATORYCLIA [id number] [place] [address] [place] Anion gap [Moles/Vol] 9 mmol/L Normal 9-18 [facility] Comment on above: Order Comment: Speci men Type: BLOOD SPECIMENOrdering Facility: [facility] Address: [address] [place] [address] Performed By: #### 2 4323-8, , 2776-02 ####[facility] LABORATORYCLIA [id number] [place] [address] [place] AST [Catalytic activity/Vol] 23 U/L Normal 13-35 [facility] Comment on above: Order Comment: Speci men Type: BLOOD SPECIMENOrdering Facility: [facility] Address: [address] [address] Performed By: #### 2 4323-8, , 2776-02 ####[facility] LABORATORYCLIA [id number] [place] [address] [place] Bilirubin [Mass/Vol] 0.3 mg/dL Normal 0.2-1.3 [facility] Comment on above: Order Comment: Speci men Type: BLOOD SPECIMENOrdering Facility: [facility] Address: [address] Performed By: #### 2 4323-8, , 2776-02 ####[facility] SERVICESCLIA [id number] [place] [address] [place] Calcium [Mass/Vol] 8.3 mg/dL Low 8.5-10.2 [facility] Comment on above: Order Comment: Speci men Type: BLOOD SPECIMENOrdering Facility: [facility] Address: [address] Performed By: #### 2 4323-8, , 2776-02 ####[facility] LEM[facility]OREIA [id number] [place] [address] [place] Chloride [Moles/Vol] 108 mmol/L High 97-105 [facility] Comment on above: Order Comment: Speci men Type: BLOOD SPECIMENOrdering Facility: [facility] Address: [address] Performed By: #### 2 4323-8, , 2776-02 ####[facility] LABORATORYCLIA [id number] [place] [address] [place] CO2 [Moles/Vol] 21 mmol/L Low 22-30 [facility] Comment on above: Order Comment: Speci men Type: BLOOD SPECIMENOrdering Facility: [facility] Address: [address] Performed By: #### 2 4323-8, 70632-9, 2776-02 ####[facility] LABORATORYCLIA [id number] [place] [address] [place] Creatinine [Mass/Vol] 0.76 mg/dL Normal 0.58-0.96 [facility] Comment on above: Order Comment: [facility] Type: BLOOD SPECIMENOrdering Facility: [facility] Address: [address] Performed By: #### 2 4323-8, , 2776-02 ####[facility] LABORATORYCLIA [id number] [place] [address] [facility] Creatinine and Glomerular filtration rate.predicted panel (S/P/Bld) 106 mL/min/1.73m??? Normal >=60 [facility] Comment on above: Order Comment: [facility] Type: BLOOD SPECIMENOrdering Facility: [facility] Address: [address] [place] [address] Result Comment: Jessica mated Glomerular Filtration Rate [...] Performed By: #### 2 4323-8, , 2776-02 ####[facility] LABORATORYIA [id number] [place] [address] [place] Glucose [Mass/Vol] 84 mg/dL Normal 74-99 [facility] Comment on above: Order Comment: [facility] Type: BLOOD SPECIMENOrdering Facility: [facility] Address: [address] [place] [address] Result Comment: The [place] Diabetes [employer] (ADA) provides guidance for cutoff [...] Standards of Medical Care in Diabetes 2016, [place] [employer]. Diabetes Care. 2016.39(Suppl 1). Performed By: #### 2 4323-8, , 2776-02 ####[facility] LEM[facility]OREIA [id number] [place] [address] [place] Potassium [Moles/Vol] 4.1 mmol/L Normal 3.7-5.1 [facility] Comment on above: Order Comment: Speci men Type: BLOOD SPECIMENOrdering Facility: [facility] Address: [address] [place] [address] Performed By: #### 2 4328, , 2776-02 ####[facility] [id number] [place] [address] [place] Protein [Mass/Vol] 5.2 g/dL Low 6.3-8.0 [facility] Comment on above: Order Comment: Speci men Type: BLOOD SPECIMENOrdering Facility: [facility] Address: [address] [place] [address] Performed By: #### 2 4323-8, , 2776-02 ####[facility] [id number] [place] [address] [place] Sodium [Moles/Vol] 138 mmol/L Normal 136-144 [facility] Comment on above: Order Comment: Speci men Type: BLOOD SPECIMENOrdering Facility: [facility] Address: [address] [place] [address] Performed By: #### 2 4323-8, , 2776-02 ####[facility] LABORATORYIA [id number] [place] [address] [place] Urea nitrogen [Mass/Vol] 7 mg/dL Normal 7-21 [facility] Comment on above: Order Comment: Speci men Type: BLOOD SPECIMENOrdering Facility: [facility] Address: [address] Performed By: #### 2 4323-8, 54400-3, 2776- ####[facility] LABORATORYIA [id number] [place] [address] [place] Formson 10-28-2022 Forms [id number]#1.00CD:127 Normal [facility] Magnesium [facility] Magnesium [Mass/Vol] 1.9 mg/dL Normal 1.7-2.3 [facility] Comment on above: Order Comment: Speci men Type: BLOOD SPECIMENOrdering Facility: [facility] Address: [address] Performed By: #### 2 4323-8, , 2776-02 ####[facility] LEM[facility]OREIA [id number] [place] [id number] [facility] [place] Phosphate SerPl-ncon 10-28 Phosphate [Mass/Vol] 3.2 mg/dL Normal 2.7-4.8 [facility] Comment on above: Order Comment: Speci men Type: BLOOD SPECIMENOrdering Facility: [facility] Address: [address] [facility] [place] [id number] Performed By: #### 2 4323-8, , 2776-02 ####[facility] LABORATORYIA [id number] [place] [address] [place] ANES POSTPROC EVALon 023 ANES POSTPROC EVAL Normal [facility] ANES PRE-OPon 10-27-2022 ANES PRE-OP Normal [facility] CBC panel Auto (Bld)on 10-27 Erythrocyte distribution width (RBC) [Ratio] 13.3 % Normal 11.5-15.0 [facility] Comment on above: Order Comment: Speci men Type: BLOOD SPECIMENOrdering Facility: [facility] Address: [address] [address] Performed By: #### 5 8410-2 ####[facility] LABORATORYCLIA [id number] [address] [place] Hematocrit (Bld) [Volume fraction] 33.6 % Low 36.0-46.0 [facility] Comment on above: Order Comment: Speci men Type: BLOOD SPECIMENOrdering Facility: [facility] Address: [address] [address] Performed By: #### 5 8410-2 ####[facility] LABORATORYCLIA [id number] [address] [place] Hemoglobin (Bld) [Mass/Vol] 10.9 g/dL Low 11.5-15.5 [facility] Comment on above: Order Comment: Speci men Type: BLOOD SPECIMENOrdering Facility: [facility] Address: [address] [address] Performed By: #### 5 8410-2 ####[facility] LABORATORYCLIA [id number] [place] [address] [place] MCH (RBC) [Entitic mass] 30.5 pg Normal 26.0-34.0 [facility] Comment on above: Order Comment: Speci men Type: BLOOD SPECIMENOrdering Facility: [facility] Address: [address] [address] Performed By: #### 5 8410-2 ####[facility] LABORATORYCLIA [id number] [address] [place] MCHC (RBC) [Mass/Vol] 32.4 g/dL Normal 30.5-36.0 [facility] Comment on above: Order Comment: Speci men Type: BLOOD SPECIMENOrdering Facility: [facility] Address: [address] [address] Performed By: #### 5 8410-2 ####[facility] LABORATORYCLIA [id number] [place] [address] [place] MCV (RBC) [Entitic vol] 94.1 fL Normal 80.0-100.0 [facility] Comment on above: Order Comment: Speci men Type: BLOOD SPECIMENOrdering Facility: [facility] Address: [address] [address] Performed By: #### 5 8410-2 ####[facility] [id number] [address] [place] Nucleated RBC (Bld) [#/Vol] 10*3/uL Normal <0.01 [facility] Comment on above: Order Comment: Speci men Type: BLOOD SPECIMENOrdering Facility: [facility] Address: [address] [place] [address] Performed By: #### 5 8410-2 ####[facility] [id number] [place] [address] [place] Platelet mean volume (Bld) [Entitic vol] 11.7 fL Normal 9.0-12.7 [facility] Comment on above: Order Comment: Speci men Type: BLOOD SPECIMENOrdering Facility: [facility] Address: [address] [place] [address] Performed By: #### 5 8410-2 ####[facility] [id number] [place] [address] [place] Platelets (Bld) [#/Vol] 160 10*3/uL Normal 150-400 [facility] Comment on above: Order Comment: Speci men Type: BLOOD SPECIMENOrdering Facility: [facility] Address: [address] [address] Performed By: #### 5 8410-2 ####[facility] [id number] [place] [address] [place] RBC (Bld) [#/Vol] 3.57 10*6/uL Low 3.90-5.20 [facility] Comment on above: Order Comment: Speci men Type: BLOOD SPECIMENOrdering Facility: [facility] Address: [address] [address] Performed By: #### 5 8410-2 ####[facility] [id number] [place] [address] [place] WBC (Bld) [#/Vol] 3.53 10*3/uL Low 3.70-11.00 [facility] Comment on above: Order Comment: Speci men Type: BLOOD SPECIMENOrdering Facility: [facility] Address: [address] [address] Performed By: #### 5 8410-2 ####[facility] [id number] [place] [address] [place] CONSULT PROGon 10-27-2022 CONSULT PROG Normal [facility] Normal [facility] Comprehensive metabolic 2000 panelon 10-27-2022 Albumin [Mass/Vol] 3.3 g/dL Low 3.9-4.9 [facility] Comment on above: Order Comment: Speci men Type: BLOOD SPECIMENOrdering Facility: [facility] Address: [address] [place], [place] [address] Performed By: #### 2 777-1, , ####[facility] [id number] [place] [address] [place] ALP [Catalytic activity/Vol] 52 U/L Normal 34-123 [facility] Comment on above: Order Comment: Speci men Type: BLOOD SPECIMENOrdering Facility: [facility] Address: [address] Performed By: #### 2 777-1, , ####[facility] [id number] [place] [address] [place] ALT [Catalytic activity/Vol] 14 U/L Normal 7-38 [facility] Comment on above: Order Comment: Speci men Type: BLOOD SPECIMENOrdering Facility: [facility] Address: [address] Performed By: #### 2 777-1, , ####[facility] LABORATORYCLIA [id number] [place] [address] [place] Anion gap [Moles/Vol] 8 mmol/L Low 9-18 [facility] Comment on above: Order Comment: Speci men Type: BLOOD SPECIMENOrdering Facility: [facility] Address: [address] Performed By: #### 2 777-1, , ####[facility] LABORATORYCLIA [id number] [place] [address] [place] AST [Catalytic activity/Vol] 28 U/L Normal 13-35 [facility] Comment on above: Order Comment: Speci men Type: BLOOD SPECIMENOrdering Facility: [facility] Address: [address] Performed By: #### 2 777-1, , ####[facility] [id number] [place] [address] [place] Bilirubin [Mass/Vol] 0.2 mg/dL Normal 0.2-1.3 [facility] Comment on above: Order Comment: Speci men Type: BLOOD SPECIMENOrdering Facility: [facility] Address: [address] Performed By: #### 2 777-1, , ####[facility] LABORATORYIA [id number] [place] [address] [place] Calcium [Mass/Vol] 8.1 mg/dL Low 8.5-10.2 [facility] Comment on above: Order Comment: Speci men Type: BLOOD SPECIMENOrdering Facility: [facility] Address: [address] Performed By: #### 2 777-1, 09804-8 ####[facility] LABORATORYCLIA [id number] [facility] [place] [address] [place] Chloride [Moles/Vol] 110 mmol/L High 97-105 [facility] Comment on above: Order Comment: Speci men Type: BLOOD SPECIMENOrdering Facility: [facility] Address: [address] [place] [address] Performed By: #### 2 777-1, , ####[facility] LABORATORYIA [id number] [facility] [place] [address] [place] CO2 [Moles/Vol] 22 mmol/L Normal 22-30 [facility] Comment on above: Order Comment: Speci men Type: BLOOD SPECIMENOrdering Facility: [facility] Address: [address] [place] [address] Performed By: #### 2 777-1, , ####[facility] [id number] [place] [address] [place] Creatinine [Mass/Vol] 0.70 mg/dL Normal 0.58-0.96 [facility] Comment on above: Order Comment: Speci men Type: BLOOD SPECIMENOrdering Facility: [facility] [facility] Address: [address] [place] [address] Performed By: #### 2 777-1, , ####[facility] LABORATORYIA [id number] [facility] [place] [address] [place] Creatinine and Glomerular filtration rate.predicted panel (S/P/Bld) 117 mL/min/1.73m??? Normal >=60 [facility] Comment on above: Order Comment: Speci men Type: BLOOD SPECIMENOrdering Facility: [facility] Address: [address] [place] [address] Result Comment: Jessica mated Glomerular Filtration Rate [...] GFR. Performed By: #### 2 777-1, , ####[facility] LABORATORYCLIA [id number] [place] [address] [place] Glucose [Mass/Vol] 89 mg/dL Normal 74-99 [facility] Comment on above: Order Comment: Geraldo marrero Type: BLOOD SPECIMENOrdering Facility: [facility] Address: [address] [place] [address] Result Comment: The [place] Diabetes Association (ADA) provides guidance for cutoff [...] Standards of Medical Care in Diabetes 2016, [place] [employer]. Diabetes Care. 2016.39(Suppl 1). Performed By: #### 2 777-1, , ####[facility] LABORATORYCLIA [id number] [facility] [place] [address] [place] Potassium [Moles/Vol] 4.1 mmol/L Normal 3.7-5.1 [facility] Comment on above: Order Comment: Geraldo marrero Type: BLOOD SPECIMENOrdering Facility: [facility] Address: [address] [place] [address] Performed By: #### 2 777-1, , ####[facility] LABORATORYCLIA [id number] [facility] [place] [address] [place] Protein [Mass/Vol] 5.0 g/dL Low 6.3-8.0 [facility] Comment on above: Order Comment: Speci men Type: BLOOD SPECIMENOrdering Facility: [facility] Address: [address] [id number] Performed By: #### 2 777-1, , ####[facility] LABORATORYIA [id number] [place] [address] [place] Sodium [Moles/Vol] 140 mmol/L Normal 136-144 [facility] Comment on above: Order Comment: Speci men Type: BLOOD SPECIMENOrdering Facility: [facility] Address: [address] Performed By: #### 2 777-1, , ####[facility] LEMOOREIA [id number] [place] [address] [place] Urea nitrogen [Mass/Vol] 5 mg/dL Low 7- [facility] Comment on above: Order Comment: Speci men Type: BLOOD SPECIMENOrdering Facility: [facility] Address: [address] [id number] Performed By: #### 2 777-1, , ####[facility] LEMOOREIA [id number] [place] [address] [place] Magnesium SerPl-mCncon 10-27 Magnesium [Mass/Vol] 1.9 mg/dL Normal 1.7-2.3 [facility] Comment on above: Order Comment: Speci men Type: BLOOD SPECIMENOrdering Facility: [facility] Address: [address] [place] [address] Performed By: #### 2 777-1, , ####[facility] LABORATORYIA [id number] [place] [address] [place] NUTRITIONon 10-27-2022 NUTRITION Normal [facility] Phosphate SerPl-mCncon 10-27 Phosphate [Mass/Vol] 3.1 mg/dL Normal 2.7-4.8 [facility] Comment on above: Order Comment: Speci men Type: BLOOD SPECIMENOrdering Facility: [facility] Address: [address] [address] Performed By: #### 2 777-1, 64695-0, 52300-1 ####[facility] LABORATORYCLIA [id number] [facility] [place] [address] [place] Upper GI endoscopyon 023 Upper GI endoscopy Normal [facility]ital CASE MGT INIT ASSESon 2022 CASE MGT INIT [facility] CBC panel Auto (Bld)on 10-26 Erythrocyte distribution width (RBC) [Ratio] 13.2 % Normal 11.5-15.0 [facility] Comment on above: Order Comment: Speci men Type: BLOOD SPECIMENOrdering Facility: [facility] Address: [address] [place] [address] Performed By: #### 5 8410-2 ####[facility] LABORATORYIA [id number] [place] [address] [place] Hematocrit (Bld) [Volume fraction] 34.9 % Low 36.0-46.0 [facility] Comment on above: Order Comment: Speci men Type: BLOOD SPECIMENOrdering Facility: [facility] Address: [address] [place] [address] Performed By: #### 5 8410-2 ####[facility] LABORATORYIA [id number] [facility] [place] [address] [place] Hemoglobin (Bld) [Mass/Vol] 11.1 g/dL Low 11.5-15.5 [facility] Comment on above: Order Comment: Speci men Type: BLOOD SPECIMENOrdering Facility: [facility] Address: [address] [place] [address] Performed By: #### 5 8410-2 ####[facility] LABORATORYIA [id number] [place] [address] [place] MCH (RBC) [Entitic mass] 30.9 pg Normal 26.0-34.0 [facility] Comment on above: Order Comment: Speci men Type: BLOOD SPECIMENOrdering Facility: [facility] Address: [address] [address] Performed By: #### 5 8410-2 ####[facility] LABORATORYIA [id number] [address] [place] MCHC (RBC) [Mass/Vol] 31.8 g/dL Normal 30.5-36.0 [facility] Comment on above: Order Comment: Speci men Type: BLOOD SPECIMENOrdering Facility: [facility] Address: [address] [address] Performed By: #### 5 8410-2 ####[facility] LEMOOREIA [id number] [place] [address] [place] MCV (RBC) [Entitic vol] 97.2 fL Normal 80.0-100.0 [facility] Comment on above: Order Comment: Speci men Type: BLOOD SPECIMENOrdering Facility: [facility] Address: [address] [address] Performed By: #### 5 8410-2 ####[facility] LEM[facility]OREIA [id number] [address] [place] Nucleated RBC (Bld) [#/Vol] 10*3/uL Normal <0.01 [facility] Comment on above: Order Comment: Speci men Type: BLOOD SPECIMENOrdering Facility: [facility] Address: [address] [address] Performed By: #### 5 8410-2 ####[facility] LABORATORYIA [id number] [address] [place] Platelet mean volume (Bld) [Entitic vol] 11.9 fL Normal 9.0-12.7 [facility] Comment on above: Order Comment: Speci men Type: BLOOD SPECIMENOrdering Facility: [facility] Address: [address] [address] Performed By: #### 5 8410-2 ####[facility] SERVICESCLIA [id number] [facility] [place] [address] [place] Platelets (Bld) [#/Vol] 181 10*3/uL Normal 150-400 [facility] Comment on above: Order Comment: Speci men Type: BLOOD SPECIMENOrdering Facility: [facility] Address: [address] [place] [address] Performed By: #### 5 8410-2 ####[facility] LABORATORYCLIA [id number] [place] [address] [place] RBC (Bld) [#/Vol] 3.59 10*6/uL Low 3.90-5.20 [facility] Comment on above: Order Comment: Speci men Type: BLOOD SPECIMENOrdering Facility: [facility] Address: [address] [place] [address] Performed By: #### 5 8410-2 ####[facility] LEM[facility]OREIA [id number] [facility].[address] [place] [facility] WBC (Bld) [#/Vol] 3.44 10*3/uL Low 3.70-11.00 [facility] Comment on above: Order Comment: Speci men Type: BLOOD SPECIMENOrdering Facility: [facility] Address: [address] [place] [address] Performed By: #### 5 8410-2 ####[facility] LEM[facility]OREIA [id number] [facility].[place] [id number] [place] CONSULTon 10-26-2022 CONSULT Normal [facility] Comprehensive metabolic 2000 panelon 10-26-2022 Albumin [Mass/Vol] 3.3 g/dL Low 3.9-4.9 [facility]spital Comment on above: Order Comment: Speci men Type: BLOOD SPECIMENOrdering Facility: [facility] Address: [address] [place] [address] Performed By: #### 1 9123-9, 3016-3, 58488-8, 2777-1 ####[facility] LABORATORYCLIA [id number] [place] [address] [place] ALP [Catalytic activity/Vol] 52 U/L Normal 34-123 [facility] Comment on above: Order Comment: Speci men Type: BLOOD SPECIMENOrdering Facility: [facility] Address: [address] [address] Performed By: #### 1 9123-9, 3016-3, 03438-8, 2777-1 ####[facility] LABORATORYCLIA [id number] [place] [address] [place] ALT [Catalytic activity/Vol] 15 U/L Normal 7-38 [facility] Comment on above: Order Comment: Speci men Type: BLOOD SPECIMENOrdering Facility: [facility] Address: [address] [address] Performed By: #### 1 9123-9, 3016-3, 68295-3, 2777-1 ####[facility] LABORATORYCLIA [id number] [place] [address] [place] Anion gap [Moles/Vol] 9 mmol/L Normal 9-18 [facility] Comment on above: Order Comment: Speci men Type: BLOOD SPECIMENOrdering Facility: [facility] Address: [address] [place] [address] Performed By: #### 1 9123-9, 3016-3, 34960-9, 2777-1 ####[facility] LABORATORYCLIA [id number] [place] [address] [place] AST [Catalytic activity/Vol] 30 U/L Normal 13-35 [facility] Comment on above: Order Comment: Speci men Type: BLOOD SPECIMENOrdering Facility: [facility] Address: [address] [place] [address] Performed By: #### 1 9123-9, 3016-3, 96430-4, 2777-1 ####[facility] LABORATORYCLIA [id number] [place] [address] [place] Bilirubin [Mass/Vol] 0.4 mg/dL Normal 0.2-1.3 [facility] Comment on above: Order Comment: Speci men Type: BLOOD SPECIMENOrdering Facility: [facility] Address: [address] [address] Performed By: #### 1 9123-9, 6-3, 76365-4, 2776- ####[facility] LABORATORYCLIA [id number] [place] [address] [place] Calcium [Mass/Vol] 8.3 mg/dL Low 8.5-10.2 [facility] Comment on above: Order Comment: Speci men Type: BLOOD SPECIMENOrdering Facility: [facility] Address: [address] [address] Performed By: #### 1 9123-9, 6-3, 52191-2, 2776- ####[facility] LABORATORYCLIA [id number] [place] [address] [place] Chloride [Moles/Vol] 110 mmol/L High 97-105 [facility] Comment on above: Order Comment: Speci men Type: BLOOD SPECIMENOrdering Facility: [facility] Address: [address] [address] Performed By: #### 1 9123-9, 3015-3, 30539-7, 2776-02 ####[facility] LABORATORYCLIA [id number] [place] [address] [place] CO2 [Moles/Vol] 20 mmol/L Low 22-30 [facility] Comment on above: Order Comment: Speci men Type: BLOOD SPECIMENOrdering Facility: [facility] Address: [address] Performed By: #### 1 9123-9, 6-3, 39750-9, 2776- ####[facility] LABORATORYCLIA [id number] [place] [address] [place] Creatinine [Mass/Vol] 0.73 mg/dL Normal 0.58-0.96 [facility] Comment on above: Order Comment: Speci men Type: BLOOD SPECIMENOrdering Facility: [facility] Address: [address] [place] [address] Performed By: #### 1 9123-9, 3016-3, 79144-6, 2777-1 ####[facility] LABORATORYCLIA [id number] [facility] [place] [address] [place] Creatinine and Glomerular filtration rate.predicted panel (S/P/Bld) 112 mL/min/1.73m??? Normal >=60 [facility] Comment on above: Order Comment: Geraldo elida Type: BLOOD SPECIMENOrdering Facility: [facility] Address: [address] [place] [address] Result Comment: Jessica mated Glomerular Filtration Rate [...] GFR. Performed By: #### 1 9123-9, 3016-3, 15746-7, 2777-1 ####[facility] LABORATORYCLIA [id number] [facility] [place] [address] [place] Glucose [Mass/Vol] 83 mg/dL Normal 74-99 [facility] Comment on above: Order Comment: Geraldo elida Type: BLOOD SPECIMENOrdering Facility: [facility] Address: [address] [place] [address] Result Comment: The [place] Diabetes Association (ADA) provides guidance for cutoff [...] Standards of Medical Care in Diabetes 2016, [place] [employer]. Diabetes Care. 2016.39(Suppl 1). Performed By: #### 1 9123-9, 6-3, 17163-6, 2777- ####[facility] SERVICESCLIA [id number] [place] [address] [place] Potassium [Moles/Vol] 4.2 mmol/L Normal 3.7-5.1 [facility] Comment on above: Order Comment: Speci men Type: BLOOD SPECIMENOrdering Facility: [facility] Address: [address] [phone] Performed By: #### 1 9123-9, 3016-3, 47618-2, 277- ####[facility] LEM[facility]OREIA [id number] [place] [address] [place] Protein [Mass/Vol] 5.0 g/dL Low 6.3-8.0 [facility] Comment on above: Order Comment: Speci men Type: BLOOD SPECIMENOrdering Facility: [facility] Address: [address] [phone] Performed By: #### 1 9123-9, 6-3, 53967-2, 277- ####[facility] [id number] [place] [address] [place] Sodium [Moles/Vol] 139 mmol/L Normal 136-144 [facility] Comment on above: Order Comment: Speci men Type: BLOOD SPECIMENOrdering Facility: [facility] Address: [address] [place] [address] Performed By: #### 1 9123-9, 3016-3, 68304-3, 277-1 ####[facility] LABORATORYIA [id number] [place] [address] [place] Urea nitrogen [Mass/Vol] 5 mg/dL Low 7-21 [facility] Comment on above: Order Comment: Speci men Type: BLOOD SPECIMENOrdering Facility: [facility] Address: [address] [phone] Performed By: #### 1 9123-9, 3016-3, 45521-4, 2777-1 ####[facility] L[facility] [id number] [place] [address] [place] ED Note-Physicianon 10-27-19 ED Note-Physician Normal [facility] Comment on above: Result Comment: Elec tronically Signed By: Lonnie Rios PA-C\.br\Date and Time Signed: 10/20/22 13:50 EDT\.br\Electronically Co-Signed By: Earnest Jett DO\.br\Date and Time Co-Signed: 10/26/22 07:01 EDT Magnesium SerPl-mCncon 10-26 Magnesium [Mass/Vol] 1.9 mg/dL Normal 1.7-2.3 [facility] Comment on above: Order Comment: Speci men Type: BLOOD SPECIMENOrdering Facility: [facility] Address: [address] [place], [place] [address] Performed By: #### 1 9123-9, 3016-3, 79518-1, 2777-1 ####[facility] [id number] [place] [address] [facility] Phosphate SerPl-mCncon 10-26 Phosphate [Mass/Vol] 4.3 mg/dL Normal 2.7-4.8 [facility] Comment on above: Order Comment: Speci men Type: BLOOD SPECIMENOrdering Facility: [facility] Address: [address] [place], [place] [address] Performed By: #### 1 9123-9, 3016-3, 00858-6, 2777-1 ####[facility] [id number] [place] [address] [place] TSH SerPl-aCncon 10-26-2022 TSH Qn 0.712 m[IU]/L Normal 0.270-4.200 [facility] Comment on above: Order Comment: Speci men Type: BLOOD SPECIMENOrdering Facility: [facility] Address: [address] [place] [address] Result Comment: If t he patient is , TSH reference range varies by gestational period:First Trimester (weeks 9-12): 0.180-2.990 mIU/LSecond Trimester: 0.110-3.980 mIU/LThird Trimester: 0.480-4.710 mIU/Lisa Johnson et al. A Practical Approach for the Verifications and Determination of Site- and Trimester-Specific Reference Intervals for Thyroid Function tests in . Thyroid, 2019:29:3:412-420. Claus Graf, et al. 2017 Guidelines of the [place] Thyroid Association for the Diagnosis and Management of Thyroid Disease during and the . Thyroid, 2017:27:3:315-389. Performed By: #### 1 9123-9, 3016-3, 86403-3, 2777-1 ####[facility] LABORATORYCLIA [id number] [place] [address] [place] CBC W Auto Differential pane l (Bld)on 10-25-2022 Basophils (Bld) [#/Vol] 0.04 10*3/uL Normal <0.11 [facility] Comment on above: Order Comment: Speci men Type: BLOOD SPECIMENOrdering Facility: [facility] Address: [address] [address] Performed By: #### 5 7021-8 ####[facility] LABORATORYIA [id number] [place] [address] [place] Basophils/100 WBC (Bld) 1.1 % Normal [facility] Comment on above: Order Comment: Speci men Type: BLOOD SPECIMENOrdering Facility: [facility] Address: [address] [address] Performed By: #### 5 7021-8 ####[facility] LABORATORYIA [id number] [address] [place] Differential cell count method Nom (Bld) Auto Normal [facility] Comment on above: Order Comment: Speci men Type: BLOOD SPECIMENOrdering Facility: [facility] Address: [address] [address] Performed By: #### 5 7021-8 ####[facility] LABORATORYCLIA [id number] [facility] [address] [place] Eosinophils (Bld) [#/Vol] 0.07 10*3/uL Normal <0.46 [facility] Comment on above: Order Comment: Speci men Type: BLOOD SPECIMENOrdering Facility: [facility] Address: [address] [place] [address] Performed By: #### 5 7021-8 ####[facility] LABORATORYCLIA [id number] [place] [address] [place] Eosinophils/100 WBC (Bld) 1.9 % Normal [facility] Comment on above: Order Comment: Speci men Type: BLOOD SPECIMENOrdering Facility: [facility] Address: [address] [place] [address] Performed By: #### 5 7021-8 ####[facility] LABORATORYIA [id number] [place] [address] [place] Erythrocyte distribution width (RBC) [Ratio] 13.0 % Normal 11.5-15.0 [facility] Comment on above: Order Comment: Speci men Type: BLOOD SPECIMENOrdering Facility: [facility] Address: [address] [place] [address] Performed By: #### 5 7021-8 ####[facility] LABORATORYCLIA [id number] [place] [address] [place] Hematocrit (Bld) [Volume fraction] 39.5 % Normal 36.0-46.0 [facility] Comment on above: Order Comment: Speci men Type: BLOOD SPECIMENOrdering Facility: [facility] Address: [address] [place] [address] Performed By: #### 5 7021-8 ####[facility] LABORATORYCLIA [id number] [place] [address] [place] Hemoglobin (Bld) [Mass/Vol] 13.1 g/dL Normal 11.5-15.5 [facility] Comment on above: Order Comment: Speci men Type: BLOOD SPECIMENOrdering Facility: [facility] Address: [address] [address] Performed By: #### 5 7021-8 ####[facility] LABORATORYCLIA [id number] [facility] [place] [address] [place] Immature granulocytes (Bld) [#/Vol] 10*3/uL Normal <0.10 [facility] Comment on above: Order Comment: Speci men Type: BLOOD SPECIMENOrdering Facility: [facility] Address: [address] [address] Performed By: #### 5 7021-8 ####[facility] LABORATORYIA [id number] [address] [place] Immature granulocytes/100 WBC (Bld) 0.3 % Normal [facility] Comment on above: Order Comment: Speci men Type: BLOOD SPECIMENOrdering Facility: [facility] Address: [address] [address] Performed By: #### 5 7021-8 ####[facility] LABORATORYIA [id number] [place] [address] [place] Lymphocytes (Bld) [#/Vol] 1.11 10*3/uL Normal 1.00-4.00 [facility] Comment on above: Order Comment: Speci men Type: BLOOD SPECIMENOrdering Facility: [facility] Address: [address] [address] Performed By: #### 5 7021-8 ####[facility] LABORATORYCLIA [id number] [place] [address] [place] Lymphocytes/100 WBC (Bld) 29.4 % Normal [facility] Comment on above: Order Comment: Speci men Type: BLOOD SPECIMENOrdering Facility: [facility] Address: [address] [address] Performed By: #### 5 7021-8 ####[facility] LABORATORYCLIA [id number] [facility].[address] MCH (RBC) [Entitic mass] 30.5 pg Normal 26.0-34.0 [facility] Comment on above: Order Comment: Speci men Type: BLOOD SPECIMENOrdering Facility: [facility] Address: [address] [address] Performed By: #### 5 7021-8 ####[facility] LABORATORYCLIA [id number] [address] [place] MCHC (RBC) [Mass/Vol] 33.2 g/dL Normal 30.5-36.0 [facility] Comment on above: Order Comment: Speci men Type: BLOOD SPECIMENOrdering Facility: [facility] Address: [address] [address] Performed By: #### 5 7021-8 ####[facility] [id number] [address] [facility] MCV (RBC) [Entitic vol] 92.1 fL Normal 80.0-100.0 [facility] Comment on above: Order Comment: Speci men Type: BLOOD SPECIMENOrdering Facility: [facility] Address: [address] [place] [address] Performed By: #### 5 7021-8 ####[facility] [id number] [address] [facility] Monocytes (Bld) [#/Vol] 0.27 10*3/uL Normal <0.87 [facility] Comment on above: Order Comment: Speci men Type: BLOOD SPECIMENOrdering Facility: [facility] Address: [address] [place] [address] Performed By: #### 5 7021-8 ####[facility] [id number] [address] Monocytes/100 WBC (Bld) 7.1 % Normal [facility] Comment on above: Order Comment: Speci men Type: BLOOD SPECIMENOrdering Facility: [facility] Address: [address] [address] Performed By: #### 5 7021-8 ####[facility] LABORATORYCLIA [id number] [place] [address] [place] Neutrophils (Bld) [#/Vol] 2.28 10*3/uL Normal 1.45-7.50 [facility] Comment on above: Order Comment: Speci men Type: BLOOD SPECIMENOrdering Facility: [facility] Address: [address] [address] Performed By: #### 5 7021-8 ####[facility] LABORATORYCLIA [id number] [place] [address] [place] Neutrophils/100 WBC (Bld) 60.2 % Normal [facility] Comment on above: Order Comment: Speci men Type: BLOOD SPECIMENOrdering Facility: [facility] Address: [address] [address] Performed By: #### 5 7021-8 ####NAVAL [facility] [id number] [place] [address] [place] Nucleated RBC (Bld) [#/Vol] 10*3/uL Normal <0.01 [facility] Comment on above: Order Comment: Speci men Type: BLOOD SPECIMENOrdering Facility: [facility] Address: [address] [place] [address] Performed By: #### 5 7021-8 ####[facility] [id number] [place] [address] [place] Nucleated RBC/100 WBC (Bld) [Ratio] 0.0 /100 WBC Normal [facility] Comment on above: Order Comment: Speci men Type: BLOOD SPECIMENOrdering Facility: [facility] Address: [address] [place] [address] Performed By: #### 5 7021-8 ####[facility] LABORATORYIA [id number] [place] [id number] [place] Platelet mean volume (Bld) [Entitic vol] 11.4 fL Normal 9.0-12.7 [facility] Comment on above: Order Comment: Speci men Type: BLOOD SPECIMENOrdering Facility: [facility] Address: [address] [address] Performed By: #### 5 7021-8 ####[facility]ORATORYIA [id number] [place] [address] [place] Platelets (Bld) [#/Vol] 208 10*3/uL Normal 150-400 [facility] Comment on above: Order Comment: Speci men Type: BLOOD SPECIMENOrdering Facility: [facility] Address: [address] [address] Performed By: #### 5 7021-8 ####[facility] [id number] [place] [id number] [place] RBC (Bld) [#/Vol] 4.29 10*6/uL Normal 3.90-5.20 [facility] Comment on above: Order Comment: Speci men Type: BLOOD SPECIMENOrdering Facility: [facility] Address: [address] [place] [address] Performed By: #### 5 7021-8 ####[facility] [id number] [place] [address] [place] WBC (Bld) [#/Vol] 3.78 10*3/uL Normal 3.70-11.00 [facility] Comment on above: Order Comment: Speci men Type: BLOOD SPECIMENOrdering Facility: [facility] Address: [address] [place] [address] Performed By: #### 5 7021-8 ####[facility] [id number] [place] [address] [place] CT ABD/PEL W IVCONon 023 CT ABD/PEL W IVCON Normal [facility] Comprehensive metabolic 2000 panelon 10-25-2022 Albumin [Mass/Vol] 4.2 g/dL Normal 3.9-4.9 [facility]ital Comment on above: Order Comment: Speci men Type: BLOOD SPECIMENOrdering Facility: [facility] Address: [address] [address] Performed By: #### 1 9123-9, 60388-8, 0-3 ####[facility] LABORATORYCLIA [id number] [place] [address] [place] ALP [Catalytic activity/Vol] 70 U/L Normal 34-123 [facility] Comment on above: Order Comment: Speci men Type: BLOOD SPECIMENOrdering Facility: [facility] Address: [address] [address] Performed By: #### 1 9123-9, 11080-6, 0-3 ####[facility] LABORATORYCLIA [id number] [place] [address] [place] ALT [Catalytic activity/Vol] 21 U/L Normal 7-38 [facility] Comment on above: Order Comment: Speci men Type: BLOOD SPECIMENOrdering Facility: [facility] Address: [address] [address] Performed By: #### 1 9123-9, 84839-9, 0-3 ####[facility] [id number] [place] [address] [place] Anion gap [Moles/Vol] 10 mmol/L Normal 9-18 [facility] Comment on above: Order Comment: Speci men Type: BLOOD SPECIMENOrdering Facility: [facility] Address: [address] [address] Performed By: #### 1 9123-9, 83380-9, 3040-3 ####[facility]ORYIA [id number] [place] [address] [place] AST [Catalytic activity/Vol] 38 U/L High 13-35 [facility] Comment on above: Order Comment: Speci men Type: BLOOD SPECIMENOrdering Facility: [facility] Address: [address] [address] Performed By: #### 1 9123-9, 55920-8, 3040-3 ####[facility] [id number] [place] [address] [place] Bilirubin [Mass/Vol] 0.3 mg/dL Normal 0.2-1.3 [facility] Comment on above: Order Comment: Speci men Type: BLOOD SPECIMENOrdering Facility: [facility] Address: [address] [place] [address] Performed By: #### 1 9123-9, 95213-7, 0-3 ####[facility] [id number] [place] [address] [place] Calcium [Mass/Vol] 8.8 mg/dL Normal 8.5-10.2 [facility]ital Comment on above: Order Comment: Speci men Type: BLOOD SPECIMENOrdering Facility: [facility] Address: [address] [place] [address] Performed By: #### 1 9123-9, 56815-7, 0-3 ####[facility] [id number] [place] [address] [place] Chloride [Moles/Vol] 106 mmol/L High 97-105 [facility] Comment on above: Order Comment: Speci men Type: BLOOD SPECIMENOrdering Facility: [facility] Address: [address] [place] [address] Performed By: #### 1 9123-9, 82266-2, 0-3 ####[facility] [id number] [place] [address] [place] CO2 [Moles/Vol] 22 mmol/L Normal 22-30 [facility] ital Comment on above: Order Comment: Speci men Type: BLOOD SPECIMENOrdering Facility: [facility] Address: [address] [place] [address] Performed By: #### 1 9123-9, 81470-1, 3040-3 ####[facility] [id number] [place] [address] [place] Creatinine [Mass/Vol] 0.82 mg/dL Normal 0.58-0.96 [facility] Comment on above: Order Comment: Geraldo marrero Type: BLOOD SPECIMENOrdering Facility: [facility] Address: [address] [phone] Performed By: #### 1 9123-9, 86072-5, 3040-3 ####[facility] LABORATORYCLIA [id number] [facility] [place] [address] [place] Creatinine and Glomerular filtration rate.predicted panel (S/P/Bld) 97 mL/min/1.73m??? Normal >=60 [facility] Comment on above: Order Comment: Geraldo marrero Type: BLOOD SPECIMENOrdering Facility: [facility] Address: [address] Result Comment: Jessica mated Glomerular Filtration [...] actual GFR. Performed By: #### 1 9123-9, 14511-1, 3040-3 ####[facility] LABORATORYCLIA [id number] [place] [address] [place] Glucose [Mass/Vol] 85 mg/dL Normal 74-99 [facility]spital Comment on above: Order Comment: Geraldo marrero Type: BLOOD SPECIMENOrdering Facility: [facility] Address: [address] [phone] Result Comment: The [place] Diabetes [employer] (ADA) provides guidance for cutoff [...] Standards of Medical Care in Diabetes 2016, [place] [employer]. Diabetes Care. 2016.39(Suppl 1). Performed By: #### 1 9123-9, 17324-4, 0-3 ####[facility] SERVICESCLIA [id number] [place] [address] [place] Potassium [Moles/Vol] 3.8 mmol/L Normal 3.7-5.1 [facility] Comment on above: Order Comment: Speci men Type: BLOOD SPECIMENOrdering Facility: [facility] Address: [address] Performed By: #### 1 9123-9, 15474-2, 0-3 ####[facility] [id number] [place] [address] [place] Protein [Mass/Vol] 6.5 g/dL Normal 6.3-8.0 [facility] Comment on above: Order Comment: Speci men Type: BLOOD SPECIMENOrdering Facility: [facility] Address: [address] Performed By: #### 1 9123-9, 93697-2, 0-3 ####[facility] [id number] [place] [address] [place] Sodium [Moles/Vol] 138 mmol/L Normal 136-144 [facility] Comment on above: Order Comment: Speci men Type: BLOOD SPECIMENOrdering Facility: [facility] Address: [address] Performed By: #### 1 9123-9, 92939-1, 0-3 ####[facility] [id number] [place] [address] [place] Urea nitrogen [Mass/Vol] 7 mg/dL Normal 7-21 [facility] Comment on above: Order Comment: Speci men Type: BLOOD SPECIMENOrdering Facility: [facility] Address: [address] Performed By: #### 1 9123-9, 28780-9, 3040-3 ####[facility] LABORATORYCLIA [id number] [place] [address] [place] D dimer FEU PPP-mCncon 10-25 Fibrin D-dimer FEU (PPP) [Mass/Vol] <190 Normal <500 [facility] Comment on above: Order Comment: Speci men Type: BLOOD SPECIMENOrdering Facility: [facility] Address: [place] [address] Performed By: #### 4 8065-7 ####[facility] SERVICESCLIA [id number] [place] [address] [place] ECG COMPLETEon 10-25-2022 ECG COMPLETE Normal [facility] ED NOTEon 10-25-2022 ED NOTE HNO ID: [id number] Author: Anam Myers RN Service: ? Author Type: Registered Nurse Type: ED Notes Filed: 10/25/2022 8:19 AM Note Text: Pt unable to urinate sat this time. Aware urine sample is needed. Normal [facility] ED NOTE Normal [facility] ED PROV NOTEon 10-25-2022 ED PROV NOTE Normal [facility] HISTORY PHYSICALon HISTORY PHYSICAL Normal [facility] pital Lipase SerPl-cCncon 10-26-19 23 Lipase [Catalytic activity/Vol] 29 U/L Normal 16-61 [facility] Comment on above: Order Comment: Speci men Type: BLOOD SPECIMENOrdering Facility: [facility] Address: [address] [facility] [place] [address] Performed By: #### 1 9123-9, 83700-9, 3040-3 ####[facility] [id number] [place] [address] [place] Magnesium SerPl-ncon 10-25 Magnesium [Mass/Vol] 1.9 mg/dL Normal 1.7-2.3 [facility] Comment on above: Order Comment: Speci men Type: BLOOD SPECIMENOrdering Facility: [facility] Address: [place] [address] Performed By: #### 1 9123-9, 20051-9, 3040-3 ####[facility] [id number] [place] [address] [place] NURSING PROGon 10-25-2022 NURSING PROG Normal [facility] Urinalysis complete panel (U )on 10-25-2022 Bilirubin Ql (U) Negative Normal Negative [facility] pital Comment on above: Order Comment: Speci men Type: URINE SPECIMENOrdering Facility: [facility] Address: [address] [address] Performed By: #### 2 4356-8 ####[facility] [id number] [address] [place] Clarity (Unsp spec) Clear Normal Clear [facility] Comment on above: Order Comment: Speci men Type: URINE SPECIMENOrdering Facility: [facility] Address: [address] [place] [address] Performed By: #### 2 4356-8 ####[facility] [id number] [place] [address] [place] Color (U) Colorless Normal yellow [facility] Comment on above: Order Comment: Speci men Type: URINE SPECIMENOrdering Facility: [facility] Address: [address] [address] Performed By: #### 2 4356-8 ####[facility] [id number] [place] [id number] [place] Epithelial cells LM.HPF (Urine sed) [#/Area] Few Normal [facility] Comment on above: Order Comment: Speci men Type: URINE SPECIMENOrdering Facility: [facility] Address: [address] [address] Performed By: #### 2 4356-8 ####[facility] [id number] [place] [address] [place] Glucose Test strip (U) [Mass/Vol] Negative Normal Trace, Negative [facility] Comment on above: Order Comment: Speci men Type: URINE SPECIMENOrdering Facility: [facility] Address: [address] [place] [address] Performed By: #### 2 4356-8 ####[facility] LABORATORYIA [id number] [place] [address] [place] Hemoglobin Ql (U) Negative Normal Negative, Trace [facility] Comment on above: Order Comment: Speci men Type: URINE SPECIMENOrdering Facility: [facility] Address: [address] [place] [address] Performed By: #### 2 4356-8 ####[facility] [id number] [place] [address] [place] Ketones Ql (U) Negative Normal Negative, Trace [facility] Comment on above: Order Comment: Speci men Type: URINE SPECIMENOrdering Facility: [facility] Address: [address] [place] [address] Performed By: #### 2 4356-8 ####[facility]ORATORYIA [id number] [place] [address] [place] Leukocyte esterase Test strip Ql (U) Negative Normal Negative, 25 Patito/uL [facility] Comment on above: Order Comment: Speci men Type: URINE SPECIMENOrdering Facility: [facility] Address: [address] [place] [address] Performed By: #### 2 4356-8 ####[facility]ORATORYIA [id number] [place] [address] [place] Nitrite Ql (U) Negative Normal Negative [facility] Comment on above: Order Comment: Speci men Type: URINE SPECIMENOrdering Facility: [facility] Address: [address] [place] [address] Performed By: #### 2 4356-8 ####[facility]ORATORYIA [id number] [place] [address] [place] pH (U) 6.5 [pH] Normal 5.0-8.0 [facility] Comment on above: Order Comment: Speci men Type: URINE SPECIMENOrdering Facility: [facility] Address: [address] [place] [address] Performed By: #### 2 4356-8 ####[facility] [id number] [place], [place] [address] [place] [address] [place] Protein (U) [Mass/Vol] Negative Normal Trace, Negative [facility] Comment on above: Order Comment: Speci men Type: URINE SPECIMENOrdering Facility: [facility] Address: [address] [address] Performed By: #### 2 4356-8 ####[facility] [id number] [place] [address] [place] RBC LM.HPF (Urine sed) [#/Area] 0-3 /HPF Normal 0-3 /HPF [facility] Comment on above: Order Comment: Speci men Type: URINE SPECIMENOrdering Facility: [facility] Address: [address] [place] [address] Performed By: #### 2 4356-8 ####[facility] [id number] [address] [place] Specific gravity (U) [Rel density] 1.041 High 1.005-1.030 [facility] Comment on above: Order Comment: Speci men Type: URINE SPECIMENOrdering Facility: [facility] Address: [address] [place] [address] Performed By: #### 2 4356-8 ####[facility] [id number] [place], [place] [address] [place] [address] [place] Urobilinogen Ql (U) Normal Normal Negative [facility] Comment on above: Order Comment: Speci men Type: URINE SPECIMENOrdering Facility: [facility] Address: [address] [place] [address] Performed By: #### 2 4356-8 ####[facility] [id number] [address] [place] WBC LM.HPF (Urine sed) [#/Area] 0-5 /HPF Normal 0-5 /HPF [facility] Comment on above: Order Comment: Speci men Type: URINE SPECIMENOrdering Facility: [facility] Address: [place] [address] Performed By: #### 2 4356-8 ####[facility] LABORATORYCLIA [id number] [facility] [place] [address] [facility] XR ABDOMEN (2 VIEWS)on 10-24 XR ABDOMEN [...] Kuldip Laughlin MD 10/23/22 Final result Normal [facility] CBC with Diffon 10-23-2022 Abs. Basophil 0.03 k/uL Normal 0.00-0.20 [facility] Comment on above: Performed By: #### L JUDITH BROWN, CDP #### [facility] [address] [place] [address] [place] [address] [employer] Set Up Operator: Baldomero Espinoza MD Abs.Imm.Granulocyte <0.03 Normal 0.00-0.30 [facility] Comment on above: Performed By: #### L JUDITH BROWN, CDP #### [facility] [address] [place] [address] [employer] Operator: Baldomero Espinoza MD Abs.Neutrophil (Seg) 3.51 k/uL Normal 1.50-8.10 [facility] Comment on above: Performed By: #### L JUDITH BROWN, CDP #### [facility] [address] [place], [facility]83 [employer] Operator: Baldomero Espinoza MD Basophils/100 WBC (Bld) 1 % Normal 0-2 [facility] Comment on above: Performed By: #### L IP, CP, CDP #### [address] [place], [facility]83 [employer] Operator: Baldomero Espinoza MD Eosinophils (Bld) [#/Vol] 0.07 10*3/uL Normal 0.00-0.44 [facility] Comment on above: Performed By: #### L IP, CP, CDP #### [address] [place], [facility]83 [employer] Operator: Baldomero Espinoza MD Eosinophils/100 WBC (Bld) 1 % Normal 1-4 [facility] Comment on above: Performed By: #### L IP, CP, CDP #### [address] [place], [facility]83 [employer] Operator: Baldomero Espinoza MD Erythrocyte distribution width (RBC) [Ratio] 12.7 % Normal 11.8-14.4 [facility] Comment on above: Performed By: #### L IP, CP, CDP #### [address] [place] [id number] [employer] Operator: Baldomero Espinoza MD Hematocrit (Bld) [Volume fraction] 36.0 % Low 36.3-47.1 [facility] Comment on above: Performed By: #### L IP, CP, CDP #### [address] [place], [facility]83 [employer] Operator: Baldomero Espinoza MD Hemoglobin (Bld) [Mass/Vol] 12.2 g/dL Normal 11.9-15.1 [facility] Comment on above: Performed By: #### L IP, CP, CDP #### [address] [place] [address] [employer] Operator: Baldomero Espinoza MD Immature granulocytes/100 WBC (Bld) 0 % Normal 0 [facility] Comment on above: Performed By: #### L IP, CP, CDP #### [facility] [address] [place], [place] [address] [employer] Set Up Operator: Baldomero Espinoza MD Lymphocytes (Bld) [#/Vol] 2.05 10*3/uL Normal 1.10-3.70 [facility] Comment on above: Performed By: #### L IP, CP, CDP #### [address] [place] [address] [employer] Operator: Baldomero Espinoza MD Lymphocytes/100 WBC (Bld) 34 % Normal 24-43 [facility] Comment on above: Performed By: #### L IP, CP, CDP #### [address] [place], [facility]83 [employer] Up Operator: Baldomero Espinoza MD MCH (RBC) [Entitic mass] 30.8 pg Normal 25.2-33.5 [facility] Comment on above: Performed By: #### L IP, CP, CDP #### [address] [place], [facility]83 [employer] Operator: Baldomero Espinoza MD MCHC (RBC) [Mass/Vol] 33.9 g/dL Normal 28.4-34.8 [facility] Comment on above: Performed By: #### L IP, CP, CDP #### [address] [place], [place] [phone] [employer] Up Operator: Baldomero Espinoza MD MCV (RBC) [Entitic vol] 90.9 fL Normal 82.6-102.9 [facility] Comment on above: Performed By: #### L IP, CP, CDP #### [address] [place] [address] [employer] Up Operator: Baldomero Espinoza MD Monocytes (Bld) [#/Vol] 0.44 10*3/uL Normal 0.10-1.20 [facility] Comment on above: Performed By: #### L IP CP, CDP #### [facility] [address] [place], [place] [phone] [employer] Set Up Operator: Baldomero Espinoza MD Monocytes/100 WBC (Bld) 7 % Normal 3-12 [facility] Comment on above: Performed By: #### L IP CP, CDP #### [facility] [address] [place] [address] [employer] Set [employer] Operator: Baldomero Espinoza MD Neutrophil (Seg) 57 % Normal 36-65 [facility] Comment on above: Performed By: #### L IP CP, CDP #### [facility] [address] [place], [place] [address] [employer] Set Up Operator: Baldomero Espinoza MD NRBC Automated 0.0 per 100 WBC Normal 0.0 [facility] Comment on above: Performed By: #### L JUDITH BROWN, CDP #### [facility] [address] [place], [place] [address] [employer] Up Operator: Baldomero Espinoza MD Platelet mean volume (Bld) [Entitic vol] 11.1 fL Normal 8.1-13.5 [facility] Comment on above: Performed By: #### L KEVIN CP, CDP #### [facility] [address] [place] [address] [employer] Up Operator: Baldomero Espinoza MD Platelets (Bld) [#/Vol] 226 10*3/uL Normal 138-453 [facility] Comment on above: Performed By: #### L KEVIN CP, CDP #### [facility] [address] [place], [place] [address] [employer] Up Operator: Baldomero Espinoza MD RBC (Bld) [#/Vol] 3.96 10*6/uL Normal 3.95-5.11 [facility] Comment on above: Performed By: #### L KEVIN CP, CDP #### [facility] [address] [place], [place] [phone] [employer] Operator: Baldomero Espinoza MD WBC (Bld) [#/Vol] 6.1 10*3/uL Normal 3.5-11.3 [facility] Comment on above: Performed By: #### L KEVIN CP, CDP #### [facility] [address] [place], [place] 36[address] [employer] Operator: Baldomero Espinoza MD CNPNon 10-23-2022 CNPN Normal [facility] Comp Metabolic Profon 2022 Albumin [Mass/Vol] 4.1 g/dL Normal 3.5-5.2 [facility] Comment on above: Performed By: #### L JUDITH BROWN, CDP #### [facility] [address] [place], [place] [address] [employer] Up Operator: Baldomero Espinoza MD Albumin/Glob Ratio 1.7 Normal 1.0-2.5 [facility] Comment on above: Performed By: #### L JUDITH BROWN, CDP #### [facility] [address] [place], [place] [phone] [employer] Set Up Operator: Baldomero Espinoza MD Alkaline Phos 64 U/L Normal 35-104 [facility] Comment on above: Performed By: #### L JUDTIH BROWN, CDP #### [facility] [address] [place], [place] [address] [employer] Up Operator: Baldomero Espinoza MD ALT [Catalytic activity/Vol] 19 U/L Normal 5-33 [facility] Comment on above: Performed By: #### L JUDITH BROWN, CDP #### [facility] [address] [place], [place] [address] [employer] Up Operator: Baldomero Espinoza MD Anion gap [Moles/Vol] 11 mmol/L Normal 9-17 [facility] Comment on above: Performed By: #### L IP, CP, CDP #### [facility] [address] [place], [place] [phone] [employer] Up Operator: Baldomero Espinoza MD AST [Catalytic activity/Vol] 33 U/L High <32 [facility] Comment on above: Performed By: #### L IP, CP, CDP #### [facility] [address] [place], [place] [phone] [employer] Operator: Baldomero Espinoza MD Bilirubin [Mass/Vol] 0.5 mg/dL Normal 0.3-1.2 [facility] Comment on above: Performed By: #### L IP, CP, CDP #### [facility] [address] [place], [place] [address] [employer] Press Set Up Operator: Baldomero Espinoza MD BUN/CRE Ratio 14 Normal 9-20 [facility] Comment on above: Performed By: #### L IP, CP, CDP #### [facility] [address] [place], [place] [phone] [employer] Set Up Operator: Baldomero Espinoza MD Calcium [Mass/Vol] 9.0 mg/dL Normal 8.6-10.4 [facility] Comment on above: Performed By: #### L IP, CP, CDP #### [address] [place], [place] [phone] [employer] Set Up Operator: Baldomero Espinoza MD Chloride [Moles/Vol] 103 mmol/L Normal 98-107 [facility] Comment on above: Performed By: #### L IP, CP, CDP #### [facility] [address] [place], [place] [phone] [employer] Set Up Operator: Baldomero Espinoza MD CO2 [Moles/Vol] 22 mmol/L Normal 20-31 [facility] Comment on above: Performed By: #### L IP, CP, CDP #### [facility] [address] [place] [address] [employer] Set Up Operator: Baldomero Espinoza MD Creatinine [Mass/Vol] 0.7 mg/dL Normal 0.5-0.9 [facility] Comment on above: Performed By: #### L KEVIN CP, CDP #### [facility] [address] [place] [address] [employer] Set Up Operator: Baldomero Espinoza MD GFR/1.73 sq M.predicted among non-blacks MDRD (S/P/Bld) [Vol rate/Area] mL/min/{1.73_m2} Normal >60 [facility] Comment on above: Result Comment: These [...] By: #### L IP CP, CDP #### [facility] [address] [place] [address] [place] [address] [employer] Set Up Operator: Baldomero Espinoza MD Glucose [Mass/Vol] 86 mg/dL Normal 70-99 [facility] Comment on above: Performed By: #### L KEVIN CP, CDP #### [address] [place] [address] [employer] Set Up Operator: Baldomero Espinoza MD Potassium [Moles/Vol] 3.4 mmol/L Low 3.7-5.3 [facility] Comment on above: Performed By: #### L KEVIN CP, CDP #### [facility] [address] [place] [address] [employer] Set Up Operator: Baldomero Espinoza MD Protein [Mass/Vol] 6.5 g/dL Normal 6.4-8.3 [facility] Comment on above: Performed By: #### L IP, CP, CDP #### [facility] [address] [place] [address] [employer] Set Up Operator: Baldomero Espinoza MD Sodium [Moles/Vol] 136 mmol/L Normal 135-144 [facility] Comment on above: Performed By: #### L JUDITH BROWN, CDP #### [facility] [address] [place] [address] [employer] Set Up Operator: Baldomero Espinoza MD Urea nitrogen [Mass/Vol] 10 mg/dL Normal 6-20 [facility] Comment on above: Performed By: #### L KEVIN CP, CDP #### [facility] [address] [place] [address] [employer] Set Up Operator: Baldomero Espinoza MD HCG, ,Urineon 10-23 Beta HCG ( test) Ql (U) Negative Normal NEG [facility] Comment on above: Result Comment: Spec imens with hCG levels near the threshold of the test (25 mIU/mL) may give a negative or indeterminate result. In such cases, another test should be performed with a new specimen in 48-72 hours. If early is suspected clinically in this setting, correlation with quantitative serum b-hCG level is suggested. [facility] has confirmed the use of plasma for this test. This has not been cleared or approved by the U.S. Food and Drug Administration. The FDA has determined that such clearance is not necessary. Performed By: #### U HCG, UAMIC #### [facility] [address] [place] [address] [employer] Set Up Operator: Balodmero Espinoza MD Lactic Acidon 1 Lactate [Moles/Vol] 0.8 mmol/L Normal 0.5-2.2 [facility] Comment on above: Performed By: #### L ACTIC #### [facility] [address] [place] [address] [employer] Press Set Up Operator: Baldomero Espinoza MD Lipaseon 1 Lipase [Catalytic activity/Vol] 32 U/L Normal 13-60 [facility] Comment on above: Performed By: #### L KEVIN CP, CDP #### [facility] [address] [place], [place] 673[address]83 [employer] Set Up Operator: Baldomero Espinoza MD Urinalysis w/ Microon 2022 Bacteria 1+ Abnormal NONE [facility] Comment on above: Performed By: #### U HCG, UAMIC ####[facility] [place] [address] Lab Director: Baldomero Espinoza MD Bilirubin, SemiQt,Ur Negative Normal NEG [facility] Comment on above: Performed By: #### U HCG, UAMIC ####[address] , [place] [phone] Lab Director: Baldomero Espinoza MD Blood, Urine Negative Normal NEG [facility] Comment on above: Performed By: #### U HCG, UAMIC ####[address] [place] [address] Lab Director: Baldomero Espinoza MD Clarity (U) Clear Normal CLEAR [facility] Comment on above: Performed By: #### U HCG, UAMIC ####[address] , [place] [phone] Lab Director: Baldomero Espinoza MD Color (U) Yellow Normal YEL [facility] Comment on above: Performed By: #### U HCG, UAMIC ####[address] , [place] [phone] Lab Director: Baldomero Espinoza MD Epithelial cells LM Ql (Urine sed) 2 TO 5 Normal 0-25 [facility] Comment on above: Performed By: #### U HCG, UAMIC ####[address] , [place] [phone] Lab Director: Baldomero Espinoza MD Glucose Ql (U) Negative Normal NEG [facility] Comment on above: Performed By: #### U HCG, UAMIC ####[address] [place] [address] Lab Director: Baldomero Espinoza MD Ketones Ql (U) Negative Normal NEG [facility] Comment on above: Performed By: #### U HCG, UAMIC ####[address] , [place] [phone] Lab Director: Baldomero Espinoza MD Leukocyte esterase Test strip Ql (U) Negative Normal NEG [facility] Comment on above: Performed By: #### U HCG, UAMIC ####[address] [place] [address] Lab Director: Baldomero Espinoza MD Mucus Strands TRACE Abnormal NONE [facility] Comment on above: Performed By: #### U HCG, UAMIC ####[address] [place] [address] Lab Director: Baldomero Espinoza MD Nitrite,Ur Negative Normal NEG [facility] Comment on above: Performed By: #### U HCG, UAMIC ####[address] [place] [address] Lab Director: Baldomero Espinoza MD PH,Ur 6.5 Normal 5.0-9.0 [facility] Comment on above: Performed By: #### U HCG, UAMIC ####[address] [place] [address] Lab Director: Baldomero Espinoza MD Protein Ql (U) Negative Normal NEG [facility] Comment on above: Performed By: #### U HCG, UAMIC ####[address] [place], [place] [address] Lab Director: Baldomero Espinoza MD Spec. [place],Ur 1.010 Normal 1.010-1.020 [facility] Comment on above: Performed By: #### U HCG, UAMIC ####[facility] [place] [address] Lab Director: Baldomero Espinoza MD Urine RBC's 0 TO 2 Normal 0-2 [facility] Comment on above: Performed By: #### U HCG, UAMIC ####[facility] , [place] 5776483 lab Director: Baldomero Espinoza MD Urine WBC's 0 TO 2 Normal 0-5 [facility] Comment on above: Performed By: #### U HCG, UAMIC ####[facility] [place] [address] lab Director: Baldomero Espinoza MD Urobilinogen,Ur Normal Normal 0.0-1.0 [facility] Comment on above: Performed By: #### U HCG, UAMIC ####[facility] , [place] 5143383 Lab Director: Baldomero Espinoza MD Auto Diffon 10-20-2022 Basophils/100 WBC (Bld) 1.0 % Normal 0.0-2.0 [facility] Comment on above: Order Comment: Order Added by Discern Expert. Performed By: #### 2 184192, 3506958, 8434061, 43802132, 3885646 ####[facility] [address] [place] [address] Basophils/Leukocyte s Auto (Bld) [Pure # fraction] 0.0 E9/L Normal 0.0-0.2 [facility] Comment on above: Order Comment: Order Added by Discern Expert. Performed By: #### 2 028916, 8511893, 6571197, 54830882, 7226806 ####[facility] [address] [place] [address] Eosinophils/100 WBC (Bld) 2.2 % Normal 0.0-8.0 [facility] Comment on above: Order Comment: Order Added by Discern Expert. Performed By: #### 2 119773, 6164126, 7181350, 88404450, 8627980 ####[place] [address] [place] [address] Eosinophils/Leukocy stevan Auto (Bld) [Pure # fraction] 0.1 E9/L Normal 0.0-0.5 [facility] Comment on above: Order Comment: Order Added by Discern Expert. Performed By: #### 2 526307, 8840860, 1989040, 47823158, 6581913 ####[address] [place] [address] Lymphocytes/100 WBC (Bld) 35.9 % Normal 14.0-50.0 [facility] Comment on above: Order Comment: Order Added by Discern Expert. Performed By: #### 2 743564, 5364115, 9797958, 39391125, 4218102 ####[address] [address] Lymphocytes/Leukocy stevan Auto (Bld) [Pure # fraction] 1.6 E9/L Normal 1.0-4.0 [facility] Comment on above: Order Comment: Order Added by Discern Expert. Performed By: #### 2 054121, 5491850, 9141611, 09478523, 7182039 ####[address] [address] Monocytes/100 WBC (Bld) 5.9 % Normal 4.0-14.0 [facility] Comment on above: Order Comment: Order Added by Discern Expert. Performed By: #### 2 426819, 0717234, 1723062, 37298584, 1595763 ####[address] [address] Monocytes/Leukocyte s Auto (Bld) [Pure # fraction] 0.3 E9/L Normal 0.2-1.0 [facility] Comment on above: Order Comment: Order Added by Discern Expert. Performed By: #### 2 630949, 2951551, 6641953, 72976009, 7145645 ####[address] [address] Neutrophils/100 WBC (Bld) 55.0 % Normal 36.0-75.0 [facility] Comment on above: Order Comment: Order Added by Discern Expert. Performed By: #### 2 267457, 4613211, 9777662, 17491337, 8502808 ####[facility] [address] [place] [address] Neutrophils/Leukocy stevan Auto (Bld) [Pure # fraction] 2.5 E9/L Normal 2.0-7.5 [facility] Comment on above: Order Comment: Order Added by Discern Expert. Performed By: #### 2 680340, 6788040, 0018899, 79060534, 4324696 ####[address] [address] CBC w/ Auto Diffon Erythrocyte distribution width (RBC) [Ratio] 14.0 % Normal 10.9-14.2 [facility] Comment on above: Performed By: #### 2 907780, 3173907, 9393314, 36915277, 0549075 ####[address] [place] [address] Hematocrit (Bld) [Volume fraction] 40.1 % Normal 34.0-46.0 [facility] Comment on above: Performed By: #### 2 994385, 0367097, 3092791, 37457806, 9857824 ####[address] [address] Hemoglobin (Bld) [Mass/Vol] 13.7 g/dL Normal 12.0-16.0 [facility] Comment on above: Performed By: #### 2 528699, 6473692, 4273490, 11319784, 2287392 ####[address] [address] MCH (RBC) [Entitic mass] 30.7 pg Normal 27.0-34.0 [facility] Comment on above: Performed By: #### 2 048557, 8230120, 2429578, 74273877, 8517367 ####[facility] [address] [place] [address] MCHC (RBC) [Mass/Vol] 34.2 g/dL Normal 31.4-36.0 [facility] Comment on above: Performed By: #### 2 410019, 3034389, 4389239, 13817551, 7861045 ####[address] [place] [address] MCV (RBC) [Entitic vol] 89.9 fL Normal 80.0-100.0 [facility] Comment on above: Performed By: #### 2 573219, 8006494, 0214724, 46819535, 3347603 ####[address] [address] Platelet mean volume (Bld) [Entitic vol] 9.7 fL Normal 6.4-10.8 [facility] Comment on above: Performed By: #### 2 522506, 9435745, 6277103, 17563343, 1745203 ####[address] [address] Platelets (Bld) [#/Vol] 258.0 E9/L Normal 150.0-500.0 [facility] Comment on above: Performed By: #### 2 244738, 8813303, 9778218, 61139451, 4837502 ####[place] [address] RBC (Bld) [#/Vol] 4.5 E12/L Normal 4.3-5.9 [facility] Comment on above: Performed By: #### 2 685612, 8201216, 7116572, 51845353, 2843432 ####[address] [address] WBC corrected for nucl RBC Auto (Bld) [#/Vol] 4.5 E9/L Normal 4.0-11.0 [facility] Comment on above: Performed By: #### 2 238089, 1734399, 3007434, 08939823, 0797796 ####[facility] [address] [place] 4069157 CHEMISTRYOrdered By: SYSTEM SYSTEM on 10-20-2022 Albumin [...] rate/Area] 87 mL/min/1.73 m2 Normal >=59mL/min/1.73 m2 [facility] Chem S Lipase [Catalytic activity/Vol] 35 U/L [...] [facility] Remisol CHEMISTRYOrdered By: Pranav Meng on 10-20-2022 Albumin/Globulin [Mass ratio] 1.4 {ratio} Normal 1.1 - 2.2 [facility] Chem S Anion gap [Moles/Vol] 11 mmol/L Normal 6 - 16 mEq/L [facility] Chem S Globulin (S) [Mass/Vol] 3.0 g/dL Normal 1.4 - 4.0 gm/dL [facility] Chem S Glucose [Mass/Vol] 86 mg/dL Normal 55 - 199 mg/dL [facility] Chem S Urea nitrogen/Creatinine [Mass ratio] 12 mg/mg Normal 10 - 20 [facility] Chem S CMPon 10-20-2022 Albumin/Globulin (S) [Mass conc ratio] 1.4 Normal 1.1-2.2 [facility] Comment on above: Performed By: #### 2 908981, 6535006, 5489704, 39352732, 3862370 ####[facility] [address] [place] [address] Anion gap [Moles/Vol] 11 mmol/L Normal 6-16 [facility] Comment on above: Performed By: #### 2 468276, 4254529, 0496936, 48593094, 6143271 ####[facility] [address] [place] [address] Globulin (S) [Mass/Vol] 3.0 g/dL Normal 1.4-4.0 [facility] Comment on above: Performed By: #### 2 145815, 1409584, 2055449, 02644872, 1491653 ####[facility] [address] [place] [address] Glucose [Mass/Vol] 86 mg/dL Normal 55-199 [facility] Comment on above: Result Comment: If t his glucose result represents a fasting glucose, interpretation should refer to the following reference range: 55-99 mg/dL Performed By: #### 2 602543, 9854818, 9480603, 50812582, 5604214 ####[facility] [address] [place] [address] Urea nitrogen/Creatinine [Mass ratio] 12 No Units Normal 10- [facility] Comment on above: Performed By: #### 2 595846, 4359829, 3084344, 05050303, 4624250 ####[facility] [address] [place] [address] Albumin [Mass/Vol] 4.2 g/dL Normal 3.3-5.0 [facility] Comment on above: Performed By: #### 2 940082, 6148829, 8164746, 63367611, 8535809 ####[address] [place] [address] ALP [Catalytic activity/Vol] 55 Int._Unit/L Normal 21-98 [facility] Comment on above: Performed By: #### 2 465162, 7526620, 8633946, 86215337, 3338161 ####[address] [address] ALT No additional P-5'-P [Catalytic activity/Vol] 27 Int._Unit/L Normal 6-46 [facility] Comment on above: Performed By: #### 2 919783, 6117163, 4525804, 67827750, 0029328 ####[address] [address] AST [Catalytic activity/Vol] 42 Int._Unit/L Normal 5-43 [facility] Comment on above: Performed By: #### 2 271575, 0616360, 8801192, 51968120, 8782721 ####[address] [place] [address] Bilirubin [Mass/Vol] 0.4 mg/dL Normal 0.0-1.1 [facility] Comment on above: Performed By: #### 2 393844, 1304363, 6478448, 41865591, 0531709 ####[address] [place] [address] Calcium [Mass/Vol] 9.0 mg/dL Normal 8.9-11.1 [facility] Comment on above: Performed By: #### 2 202170, 3565179, 8677453, 91818517, 6616302 ####[facility] [address] [place] [address] Chloride [Moles/Vol] 108 mmol/L Normal 101-111 [facility] Comment on above: Performed By: #### 2 180601, 1905425, 6139422, 94227471, 1203340 ####[facility] [address] [place] [address] CO2 [Moles/Vol] 24 mmol/L Normal 21-31 [facility] Comment on above: Performed By: #### 2 677961, 8974531, 7276140, 43631770, 5704710 ####[facility] [address] [place] [address] Creatinine [Mass/Vol] 0.9 mg/dL Normal 0.5-1.3 [facility] Comment on above: Performed By: #### 2 390108, 0497290, 2623563, 72969693, 2503179 ####[facility] [address] [place] [address] Potassium [Moles/Vol] 3.8 mmol/L Normal 3.5-5.3 [facility] Comment on above: Performed By: #### 2 502073, 6236484, 4220923, 13883273, 9546041 ####[facility] [address] [place] [address] Protein [Mass/Vol] 7.2 g/dL Normal 6.0-7.8 [facility] Comment on above: Performed By: #### 2 875208, 7658321, 7764668, 16561594, 9825503 ####[facility] [address] [place] [address] Sodium [Moles/Vol] 139 mmol/L Normal 135-145 [facility] Comment on above: Performed By: #### 2 393401, 3198699, 9349874, 26300095, 4557263 ####[facility] [address] [place] [address] Urea nitrogen [Mass/Vol] 11 mg/dL Normal 5-21 [facility] Comment on above: Performed By: #### 2 358971, 3555124, 3253969, 56063552, 7527541 ####[facility] [address] [place] [address] CNPNon 10-20-2022 CNPN Normal [facility] CT Abdomen/Pelvis w/o Contra ston 10-20-2022 CT Abdomen/Pelvis w/o Contrast Normal [facility] CT Chest w/o Contraston CT Chest w/o Contrast Normal [facility] Consent for Treatmenton Consent for Treatment [id number]#[id number]:127 Normal [facility] Discharge Instructionson Discharge Instructions [id number]#[id number]:127 Normal [facility] ED Clinical Summaryon 2022 ED Clinical Summary Normal [facility] ED Patient Education Noteon 10-20-2022 ED Patient Education Note Normal [facility] ED Patient Summaryon 023 ED Patient Summary Normal [facility] HEMATOLOGYOrdered By: SYSTEM SYSTEM on 10-20-2022 [...] 5.9 % Normal 4.0 - 14.0 % [facility] HemeAutoSS Monocytes/Leukocyte s Auto (Bld) [Pure # fraction] 0.3 E9/L Normal 0.2 - 1.0 E9/L [facility] HemeAutoSS Neutrophils/100 WBC (Bld) 55.0 % Normal 36.0 - 75.0 % [facility] HemeAutoSS Neutrophils/Leukocy stevan Auto (Bld) [Pure # fraction] 2.5 E9/L Normal 2.0 - 7.5 E9/L [facility] HemeAutoSS HEMATOLOGYOrdered By: Aliyah Renteria on 10-20-2022 Erythrocyte distribution width (RBC) [Ratio] 14.0 % Normal 10.9 - 14.2 % [facility] HemeAutoSS Hematocrit (Bld) [Volume fraction] 40.1 % Normal 34.0 - 46.0 % [facility] HemeAutoSS Hemoglobin (Bld) [Mass/Vol] 13.7 g/dL Normal 12.0 - 16.0 gm/dL [facility] HemeAutoSS MCH (RBC) [Entitic mass] 30.7 pg Normal 27.0 - 34.0 pg [facility] HemeAutoSS MCHC (RBC) [Mass/Vol] 34.2 g/dL Normal 31.4 - 36.0 gm/dL [facility] HemeAutoSS MCV (RBC) [Entitic vol] 89.9 fL Normal 80.0 - 100.0 fL [facility] HemeAutoSS Platelet mean volume (Bld) [Entitic vol] 9.7 fL Normal 6.4 - 10.8 fL [facility] HemeAutoSS Platelets (Bld) [#/Vol] 258.0 E9/L Normal 150.0 - 500.0 E9/L [facility] HemeAutoSS RBC (Bld) [#/Vol] 4.5 E12/L Normal 4.3 - 5.9 E12/L [facility] HemeAutoSS WBC corrected for nucl RBC Auto (Bld) [#/Vol] 4.5 E9/L Normal 4.0 - 11.0 E9/L [facility] HemeAutoSS Lipase Levelon 10-20-2022 Lipase [Catalytic activity/Vol] 35 U/L Normal 13-58 [facility] Comment on above: Performed By: #### 2 271137, 5750198, 8278918, 71580888, 5924821 ####[facility] [address] [facility] [place] [address] Prescriptions/Work Noteson 0 10-20-2022 Prescriptions/Work Notes [id number]#1.00CD:127 Normal [facility] Prescriptions/Work Notes [id number]#1.00CD:127 Normal [facility] Comment on above: Other Comment: scann ed in error UA With Cult Reflexon 2022 Bilirubin Ql (U) Negative Normal Negative [facility] Comment on above: Performed By: #### 1 6214289 ####[facility] [address] [place] [address] Clarity (U) CLEAR Normal Clear [facility] Comment on above: Performed By: #### 1 3691772 ####[facility] [address] [place] [address] Color (U) YELLOW Normal Yellow [facility] Comment on above: Performed By: #### 1 7726543 ####[facility] [address] [place] [address] Epithelial cells.squamous LM.HPF (Urine sed) [#/Area] 3-4 Normal 0-2 [facility] Comment on above: Performed By: #### 1 2193156 ####[facility] [address] [place] [address] Glucose Test strip (U) [Mass/Vol] Negative Normal Negative [facility] Comment on above: Performed By: #### 1 1026532 ####[facility] [address] [place] [address] Hemoglobin Ql (U) Negative Normal Negative [facility] Comment on above: Performed By: #### 1 7056753 ####[facility] [address] [place] [address] Ketones (U) [Mass/Vol] Negative Normal Negative [facility] Comment on above: Performed By: #### 1 4550726 ####[address] [place] [address] [place].plasma/Lith ium.RBC (Bld) [Mass ratio] 0-3 Normal 0-3 [facility] Comment on above: Performed By: #### 1 1327858 ####[address] [address] Nitrite Ql (U) Negative Normal Negative [facility] Comment on above: Performed By: #### 1 4418816 ####[address] [address] pH (U) 7.5 [pH] Invalid Interpretation Code 5.0-9.0 [facility] Comment on above: Performed By: #### 1 4436667 ####[address] [address] Protein (U) [Mass/Vol] Negative Normal Negative [facility] Comment on above: Performed By: #### 1 8564032 ####[address] [address] Specific gravity (U) [Rel density] 1.015 Invalid Interpretation Code 1.005-1.030 [facility] Comment on above: Performed By: #### 1 0823197 ####[address] [address] Type of Urine collection method Clean Catch Normal [facility] Comment on above: Performed By: #### 1 1270055 ####[address] [address] Urobilinogen Qn (U) 0.2 {Munir'U}/dL Normal 0.0-1.0 [facility] Comment on above: Performed By: #### 1 1684400 ####[address] [address] WBC Auto Ql (U) Negative Normal Negative [facility] Comment on above: Performed By: #### 1 3244571 ####[address] [address] WBC LM.HPF (Urine sed) [#/Area] 0-5 Normal 0-5 [facility] Comment on above: Performed By: #### 1 9486281 ####[facility] [address] [place] [address] URINALYSISOrdered By: Edilberto Meng on 10-20-2022 Bilirubin [...] AM) Normal Negative [facility] UA Auto SS [place].plasma/Lith ium.RBC (Bld) [Mass ratio] 0-3 /HPF Normal [...] [facility] UA Auto SS Urobilinogen Qn (U) 0.4974605 {Munir'U}/dL Normal 0.0 - 1.0 EU/dL [facility] UA Auto SS WBC Auto Ql (U) Negative (10/20/22 10:25 AM) Normal Negative [facility] UA Auto SS WBC LM.HPF (Urine sed) [#/Area] 0-5 /HPF Normal 0-5/HPF [facility] UA Auto SS eGFRon 10-20-2022 GFR/1.73 sq M.predicted among non-blacks MDRD (S/P/Bld) [Vol rate/Area] 87 mL/min/1.73 m2 Normal >=59 [facility] Comment on above: Order Comment: Order added by Discern Expert. Result Comment: Accounts Specialist alejandra kidney disease could be indicated at eGFR's of less than 60 mL/min/1.73m2. Kidney failure is indicated at less than 15 mL/min/1.73m2. Performed By: #### 2 438369, 5569756, 7713617, 99882407, 6880637 ####[facility] [address] [place] [address] Auto DiffOrdered By: SYSTEM SYSTEM on 10-19-2022 Basophils/100 WBC (Bld) 0.8 % Normal 0.0-2.0 [facility] Comment on above: Order Comment: Order Added by Discern Expert. Performed By: #### 2 470382, 2866438, 23337077, 5147268, 1652999, 66152230, 9379715 ####[address] [place] [address] Basophils/Leukocyte s Auto (Bld) [Pure # fraction] 0.0 E9/L Normal 0.0-0.2 [facility] Comment on above: Order Comment: Order Added by Discern Expert. Performed By: #### 2 710938, 9889200, 60897942, 3652473, 8341305, 89209618, 4333292 ####[facility] [address] [place] [address] Eosinophils/100 WBC (Bld) 3.5 % Normal 0.0-8.0 [facility] Comment on above: Order Comment: Order Added by Discern Expert. Performed By: #### 2 993981, 3557583, 41323605, 1577902, 5396965, 01092719, 3203024 ####[place] [address] [address] Eosinophils/Leukocy stevna Auto (Bld) [Pure # fraction] 0.2 E9/L Normal 0.0-0.5 [facility]Auto[facility] Comment on above: Order Comment: Order Added by Discern Expert. Performed By: #### 2 420824, 3612822, 78091121, 5311589, 9626046, 13588799, 9505933 ####[place] [address] [address] Lymphocytes/100 WBC (Bld) 47.3 % Normal 14.0-50.0 [facility]eAuto[facility] Comment on above: Order Comment: Order Added by Discern Expert. Performed By: #### 2 201354, 3883176, 50609727, 6343146, 8942077, 67256142, 7741046 ####[place] [address] [address] Lymphocytes/Leukocy stevan Auto (Bld) [Pure # fraction] 2.1 E9/L Normal 1.0-4.0 [facility]Auto[facility] Comment on above: Order Comment: Order Added by Mariela Expert. Performed By: #### 2 679675, 5539586, 84822210, 0428238, 2301343, 69204684, 2238010 ####[place] [address] [address] Monocytes/100 WBC (Bld) 6.6 % Normal 4.0-14.0 [facility]Auto[facility] Comment on above: Order Comment: Order Added by Discern Expert. Performed By: #### 2 988603, 3364834, 36779559, 2947106, 5416717, 61700686, 4199447 ####[place] [address] [address] Monocytes/Leukocyte s Auto (Bld) [Pure # fraction] 0.3 E9/L Normal 0.2-1.0 [facility]eAutoSS Comment on above: Order Comment: Order Added by Discern Expert. Performed By: #### 2 571041, 5630300, 39089546, 1515682, 8488954, 80412967, 4371666 ####[place] [facility] [address] [place] [address] Neutrophils/100 WBC (Bld) 41.8 % Normal 36.0-75.0 [facility] HemeAutoSS Comment on above: Order Comment: Order Added by Discern Expert. Performed By: #### 2 735595, 7290644, 22411176, 6079064, 8693437, 27396289, 5214430 ####[address] [place] [address] Neutrophils/Leukocy stevan Auto (Bld) [Pure # fraction] 1.8 E9/L Low 2.0-7.5 [facility] HemeAutoSS Comment on above: Order Comment: Order Added by Discern Expert. Performed By: #### 2 693300, 0485695, 20867791, 6208227, 8762125, 37144802, 0170643 ####[address] [address] BMPOrdered By: SYSTEM SYSTEM on 10-19-2022 Creatinine [Mass/Vol] 0.8 mg/dL Normal 0.5-1.3 [facility] Comment on above: Performed By: #### 2 678899, 4383867, 43156748, 2893638, 7902093, 38820535, 1898622 ####[address] [place] [address] Urea nitrogen [Mass/Vol] 9 mg/dL Normal 5-21 [facility] Comment on above: Performed By: #### 2 199697, 4910898, 91808117, 8985039, 9917030, 15243328, 3568442 ####[facility] [address] [place] [address] Anion gap [Moles/Vol] 10 mmol/L Normal 6-16 [facility] Comment on above: Performed By: #### 2 012880, 0773800, 78884452, 0897973, 4153454, 76675108, 3042611 ####[address] [address] Calcium [Mass/Vol] 9.3 mg/dL Normal 8.9-11.1 [facility] R emisol Comment on above: Performed By: #### 2 532086, 1669458, 01410870, 6242166, 9947443, 30038883, 5222895 ####[place] [facility] [address] [place] [address] Chloride [Moles/Vol] 108 mmol/L Normal 101-111 [facility] Comment on above: Performed By: #### 2 854071, 1119904, 50702121, 5630953, 5936998, 09407410, 3419094 ####[place] [address] [address] CO2 [Moles/Vol] 25 mmol/L Normal 21-31 [facility] Jonathan blade Comment on above: Performed By: #### 2 078758, 8370602, 31005823, 6564994, 2729184, 32678057, 2433884 ####[place] [address] [address] Glucose [Mass/Vol] 83 mg/dL Normal 55-199 [facility] R emisol Comment on above: Result Comment: If t his glucose result represents a fasting glucose, interpretation should refer to the following reference range: 55-99 mg/dL Performed By: #### 2 201737, 3237349, 46677695, 3892746, 5637834, 10881435, 8191037 ####[place] [address] [address] Potassium [Moles/Vol] 4.1 mmol/L Normal 3.5-5.3 [facility]isol Comment on above: Performed By: #### 2 477218, 7175575, 87001234, 7578923, 2769503, 01392705, 6677101 ####[place] [address] [place] [address] Sodium [Moles/Vol] 139 mmol/L Normal 135-145 [facility] R emisol Comment on above: Performed By: #### 2 185279, 6769466, 71604155, 8298775, 0080617, 08270771, 6436226 ####[facility] [address] [place] [address] BMPon 10-19-2022 Urea nitrogen/Creatinine [Mass ratio] 11 No Units Normal 10-20 [facility] Comment on above: Performed By: #### 2 406755, 7680021, 75610235, 7246728, 9115823, 29900713, 6211235 ####[facility] [address] [place] [address] CBC w/ Auto DiffOrdered By: Kaey Case on 10-19-2022 Erythrocyte distribution width (RBC) [Ratio] 13.7 % Normal 10.9-14.2 [facility] Comment on above: Performed By: #### 2 580626, 8587589, 39961734, 9382658, 4674188, 14366182, 1005229 ####[address] [address] Hematocrit (Bld) [Volume fraction] 40.7 % Normal 34.0-46.0 [facility] Comment on above: Performed By: #### 2 780477, 4292676, 28294768, 7204947, 2325741, 44670178, 3213144 ####[address] [address] Hemoglobin (Bld) [Mass/Vol] 14.1 g/dL Normal 12.0-16.0 [facility] Comment on above: Performed By: #### 2 912253, 2140778, 61049492, 1046021, 3192991, 30360079, 8838715 ####[address] [place] [address] MCH (RBC) [Entitic mass] 31.0 pg Normal 27.0-34.0 [facility] Comment on above: Performed By: #### 2 505858, 0757016, 75791376, 2268704, 5683925, 02463933, 1743362 ####[address] [address] MCHC (RBC) [Mass/Vol] 34.5 g/dL Normal 31.4-36.0 [facility] HemeAutoSS Comment on above: Performed By: #### 2 999472, 1778462, 81239942, 2446080, 7107495, 86565638, 6442124 ####[place] [facility] [address] [place] [address] MCV (RBC) [Entitic vol] 89.8 fL Normal 80.0-100.0 [facility] HemeAutoSS Comment on above: Performed By: #### 2 972404, 1734030, 39268709, 1618171, 2082879, 09663062, 9958630 ####[place] [address] Platelet mean volume (Bld) [Entitic vol] 10.3 fL Normal 6.4-10.8 [facility] HemeAutoSS Comment on above: Performed By: #### 2 800775, 4523448, 56094545, 3953694, 8580259, 52006911, 7933861 ####[place] [facility] [address] [place], [place] [address] Platelets (Bld) [#/Vol] 245.0 E9/L Normal 150.0-500.0 [facility] HemeAutoSS Comment on above: Performed By: #### 2 233194, 9014055, 19300261, 7814461, 4003874, 96743594, 0012648 ####[place] [address] RBC (Bld) [#/Vol] 4.5 E12/L Normal 4.3-5.9 [facility] HemeAutoSS Comment on above: Performed By: #### 2 309688, 8058298, 59217046, 0757509, 0110860, 76396160, 5116872 ####[place] [facility] [address] [place] [address] WBC corrected for nucl RBC Auto (Bld) [#/Vol] 4.4 E9/L Normal 4.0-11.0 [facility] HemeAutoSS Comment on above: Performed By: #### 2 701093, 7374309, 11521145, 9939033, 6100913, 88949103, 4839570 ####[facility] [address] [place] [address] CHEMISTRYOrdered By: SYSTEM SYSTEM on 10-19-2022 Albumin/Globulin [...] Consent for Treatmenton Consent for Treatment [id number] C7#1.00CD:127 Normal [facility] Discharge Instructionson Discharge Instructions [id number] 6#1.00CD:127 Normal [facility] ED Clinical Summaryon 2022 ED Clinical Summary Normal [facility] ED Note-Physicianon 10-20-19 23 ED Note-Physician Normal [facility] Comment on above: Result Comment: Elec tronically Signed By: Earnest Jett DO\.br\Date and Time Signed: 10/19/22 13:41 EDT ED Patient Education Noteon 10-19-2022 ED Patient Education Note Normal [facility] ED Patient Summaryon 023 ED Patient Summary Normal [facility] Hep Func Panelon 10-19-2022 Bilirubin.indirect [Mass or moles/Vol] UTC Abnormal 0.1-0.9 [facility] Comment on above: Result Comment: Resu lt verified by Discern Rule. Performed result UTC (Unable to Calculate) was sent as an Alpha code due the inability to calculate a valid numeric value. Performed By: #### 2 368678, 0795756, 33464757, 9807364, 7616039, 24835183, 9567852 ####[facility] [address] [place] [address] Albumin/Globulin (S) [Mass conc ratio] 1.5 Normal 1.1-2.2 [facility] Comment on above: Performed By: #### 2 603108, 6322384, 98653655, 6670347, 8418365, 11103321, 2054361 ####[address] [place] [address] ALP [Catalytic activity/Vol] 63 Int._Unit/L Normal 21-98 [facility] Comment on above: Performed By: #### 2 445882, 8379749, 45163129, 9040169, 9525025, 29696656, 4813280 ####[address] [address] ALT No additional P-5'-P [Catalytic activity/Vol] 30 Int._Unit/L Normal 6-46 [facility] Comment on above: Performed By: #### 2 384929, 7253970, 31887017, 0248389, 8522222, 56640123, 2579004 ####[address] [place] [address] AST [Catalytic activity/Vol] 47 Int._Unit/L High 5-43 [facility] Comment on above: Performed By: #### 2 724610, 8497122, 77296286, 1479540, 8097722, 42268300, 0290152 ####[address] [place] [address] Hep Func PanelOrdered By: Netlift SYSTEM on 10-19-2022 Albumin [Mass/Vol] 4.4 g/dL Normal 3.3-5.0 [facility] R emisol Comment on above: Performed By: #### 2 859110, 4932524, 99474950, 6101985, 8457156, 07655468, 8131423 ####[address] [place] [address] Bilirubin [Mass/Vol] 0.5 mg/dL Normal 0.0-1.1 [facility] Comment on above: Performed By: #### 2 415029, 4498321, 62884203, 6421612, 3303675, 64399707, 2586230 ####[address] [address] Globulin (S) [Mass/Vol] 3.0 g/dL Normal 1.4-4.0 [facility] Comment on above: Performed By: #### 2 370912, 0747024, 66462459, 6507569, 2688750, 65629221, 2035004 ####[address] [address] Protein [Mass/Vol] 7.4 g/dL Normal 6.0-7.8 [facility] R emisol Comment on above: Performed By: #### 2 389649, 7939250, 29352804, 1860264, 4039614, 48433126, 4952641 ####[address] [address] Bilirubin.direct [Mass/Vol] mg/dL Normal 0.1-0.4 [facility] Comment on above: Performed By: #### 2 998592, 4941457, 03603190, 8356732, 8250988, 27732221, 7447865 ####[address] [place] [address] Lipase LevelOrdered By: Mapflow SYSTEM on 10-19-2022 Lipase [Catalytic activity/Vol] 89 U/L High 13-58 [facility] Comment on above: Performed By: #### 2 140119, 0179929, 90679017, 2210443, 8865011, 93306614, 7048937 ####[address] [place] [address] Prescriptions/Work Noteson 0 10-19-2022 Prescriptions/Work Notes [id number] 7#1.00CD:127 Normal [facility] TSH With T4fr ReflexOrdered By: SYSTEM SYSTEM on 10-19-2022 TSH Qn 0.68 m[IU]/L Normal 0.34-5.60 [facility] Comment on above: Performed By: #### 2 652977, 1782445, 00343468, 5916272, 6300346, 02299646, 8370554 ####[facility] [address] [place] [address] UA With Cult Reflexon 2022 Bilirubin Ql (U) Negative Normal Negative [facility] Comment on above: Performed By: #### 1 5745910 ####[address] [address] Clarity (U) CLEAR Normal Clear [facility] Comment on above: Performed By: #### 1 0897811 ####[address] [address] Color (U) YELLOW Normal Yellow [facility] Comment on above: Performed By: #### 1 8109183 ####[address] [address] Epithelial cells.squamous LM.HPF (Urine sed) [#/Area] 0-2 Normal 0-2 [facility] Comment on above: Performed By: #### 1 0800634 ####[facility] [address] [place] [address] Glucose Test strip (U) [Mass/Vol] Negative Normal Negative [facility] Comment on above: Performed By: #### 1 5591594 ####[address] [address] Hemoglobin Ql (U) Negative Normal Negative [facility] Comment on above: Performed By: #### 1 5265963 ####[address] [address] Ketones (U) [Mass/Vol] Negative Normal Negative [facility] Comment on above: Performed By: #### 1 8569745 ####[address] [address] [place].plasma/Lith ium.RBC (Bld) [Mass ratio] 0-3 Normal 0-3 [facility] Comment on above: Performed By: #### 1 6984721 ####[address] [address] Nitrite Ql (U) Negative Normal Negative [facility] Comment on above: Performed By: #### 1 0680391 ####[address] [address] pH (U) 7.5 [pH] Invalid Interpretation Code 5.0-9.0 [facility] Comment on above: Performed By: #### 1 4251022 ####[address] [address] Protein (U) [Mass/Vol] Negative Normal Negative [facility] Comment on above: Performed By: #### 1 6209447 ####[address] [address] Specific gravity (U) [Rel density] 1.010 Invalid Interpretation Code 1.005-1.030 [facility] Comment on above: Performed By: #### 1 4965284 ####[address] [address] Type of Urine collection method Clean Catch Normal [facility] Comment on above: Performed By: #### 1 2863397 ####[address] [address] Urobilinogen Qn (U) 0.2 {Munir'U}/dL Normal 0.0-1.0 [facility] Comment on above: Performed By: #### 1 0341609 ####[address] [address] WBC Auto Ql (U) Negative Normal Negative [facility] Comment on above: Performed By: #### 1 5379092 ####[facility] [address] [place] [address] WBC LM.HPF (Urine sed) [#/Area] 0-5 Normal 0-5 [facility] Comment on above: Performed By: #### 1 4839306 ####[facility] [address] [place] [address] URINALYSISOrdered By: Kaye brito on 10-19-2022 Bilirubin [...] AM) Normal Negative [facility] UA Auto SS [place].plasma/Lith ium.RBC (Bld) [Mass ratio] 0-3 /HPF Normal [...] [facility] UA Auto SS Urobilinogen Qn (U) 0.7119535 {Munir'U}/dL Normal 0.0 - 1.0 EU/dL [facility] UA Auto SS WBC Auto Ql (U) Negative (10/19/22 9:18 AM) Normal Negative [facility] UA Auto SS WBC LM.HPF (Urine sed) [#/Area] 0-5 /HPF Normal 0-5/HPF [facility] UA Auto SS XR Chest 2 Viewson 3 XR Chest 2 Views Normal [facility] eGFROrdered By: SYSTEM SYSTLesia M on 10-19-2022 GFR/1.73 sq M.predicted among non-blacks MDRD (S/P/Bld) [Vol rate/Area] 100 mL/min/1.73 m2 Normal >=59 [facility] Chem S Comment on above: Order Comment: Order added by Discern Expert. Result Comment: Accounts Specialist alejandra kidney disease could be indicated at eGFR's of less than 60 mL/min/1.73m2. Kidney failure is indicated at less than 15 mL/min/1.73m2. Performed By: #### 2 180725, 9319360, 88220569, 0650044, 3589815, 12486107, 9306792 ####[facility] [address] [place] [address] [facility]-2022 ALLIED HEALTH HNO ID: [id number] Author: Karina Gonzales Tech Service: ? Author [...] 2022 TIME: 10:07 AM Normal [facility] CBC W Auto Differential pane l (Bld)on 10-18-2022 Basophils (Bld) [#/Vol] 0.03 10*3/uL Normal <0.11 [facility] Comment on above: Order Comment: Speci men Type: BLOOD SPECIMEN Ordering Facility: [facility] Address: [address] [place] [address] Performed By: #### 5 7021-8 #### [facility] CLIA [id number] [address] [place] [address] [facility] Basophils/100 WBC (Bld) 0.8 % Normal [facility] Comment on above: Order Comment: Speci men Type: BLOOD SPECIMEN Ordering Facility: [facility] Address: [address] [address] Performed By: #### 5 7021-8 #### [facility] CLIA [id number] [address] [place] [address] [facility] Differential cell count method Nom (Bld) Auto Normal [facility] Comment on above: Order Comment: Speci men Type: BLOOD SPECIMEN Ordering Facility: [facility] Address: [address] [address] Performed By: #### 5 7021-8 #### [facility] CLIA [id number] [address] Eosinophils (Bld) [#/Vol] 0.14 10*3/uL Normal <0.46 [facility] Comment on above: Order Comment: Speci men Type: BLOOD SPECIMEN Ordering Facility: [facility] Address: [address] [address] Performed By: #### 5 7021-8 #### [facility] CLIA [id number] [address] Eosinophils/100 WBC (Bld) 3.7 % Normal [facility] Comment on above: Order Comment: Speci men Type: BLOOD SPECIMEN Ordering Facility: [facility] Address: [address] [address] Performed By: #### 5 7021-8 #### [facility] CLIA [id number] [address] Erythrocyte distribution width (RBC) [Ratio] 12.7 % Normal 11.5-15.0 [facility] Comment on above: Order Comment: Speci men Type: BLOOD SPECIMEN Ordering Facility: [facility] Address: [address] [address] Performed By: #### 5 7021-8 #### [facility] CLIA [id number] [address] Hematocrit (Bld) [Volume fraction] 38.5 % Normal 36.0-46.0 [facility] Comment on above: Order Comment: Speci men Type: BLOOD SPECIMEN Ordering Facility: [facility] Address: [address] [address] Performed By: #### 5 7021-8 #### [place] [facility] CLIA [id number] [address] [place] [address] [place] Hemoglobin (Bld) [Mass/Vol] 12.9 g/dL Normal 11.5-15.5 [facility] Comment on above: Order Comment: Speci men Type: BLOOD SPECIMEN Ordering Facility: [facility] Address: [address] [address] Performed By: #### 5 7021-8 #### [facility] CLIA [id number] [address] [place] Immature granulocytes (Bld) [#/Vol] 10*3/uL Normal <0.10 [facility] Comment on above: Order Comment: Speci men Type: BLOOD SPECIMEN Ordering Facility: [facility] Address: [address] [place] [address] Performed By: #### 5 7021-8 #### [facility] CLIA [id number] [address] Immature granulocytes/100 WBC (Bld) 0.3 % Normal [facility] Comment on above: Order Comment: Speci men Type: BLOOD SPECIMEN Ordering Facility: [facility] Address: [address] [address] Performed By: #### 5 7021-8 #### [facility] CLIA [id number] [address] [place] Lymphocytes (Bld) [#/Vol] 1.66 10*3/uL Normal 1.00-4.00 [facility] Comment on above: Order Comment: Speci men Type: BLOOD SPECIMEN Ordering Facility: [facility] Address: [address] [address] Performed By: #### 5 7021-8 #### [facility] [facility] CLIA [id number] [address] [place] Lymphocytes/100 WBC (Bld) 43.7 % Normal [facility] Comment on above: Order Comment: Speci men Type: BLOOD SPECIMEN Ordering Facility: [facility] Address: [address] [address] Performed By: #### 5 7021-8 #### [facility] CLIA [id number] [address] MCH (RBC) [Entitic mass] 30.2 pg Normal 26.0-34.0 [facility] Comment on above: Order Comment: Speci men Type: BLOOD SPECIMEN Ordering Facility: [facility] Address: [address] [place] [address] Performed By: #### 5 7021-8 #### [facility] CLIA [id number] [address] MCHC (RBC) [Mass/Vol] 33.5 g/dL Normal 30.5-36.0 [facility] Comment on above: Order Comment: Speci men Type: BLOOD SPECIMEN Ordering Facility: [facility] Address: [address] [place] [address] Performed By: #### 5 7021-8 #### [facility] CLIA [id number] [address] MCV (RBC) [Entitic vol] 90.2 fL Normal 80.0-100.0 [facility] Comment on above: Order Comment: Speci men Type: BLOOD SPECIMEN Ordering Facility: [facility] Address: [address] [place] [address] Performed By: #### 5 7021-8 #### [facility] CLIA [id number] [address] Monocytes (Bld) [#/Vol] 0.28 10*3/uL Normal <0.87 [facility] Comment on above: Order Comment: Speci men Type: BLOOD SPECIMEN Ordering Facility: [facility] Address: [address] [place] [address] Performed By: #### 5 7021-8 #### [facility] CLIA [id number] [address] Monocytes/100 WBC (Bld) 7.4 % Normal [facility] Comment on above: Order Comment: Speci men Type: BLOOD SPECIMEN Ordering Facility: [facility] Address: [address] [address] Performed By: #### 5 7021-8 #### [facility] CLIA [id number] [address] [place] Neutrophils (Bld) [#/Vol] 1.68 10*3/uL Normal 1.45-7.50 [facility] Comment on above: Order Comment: Speci men Type: BLOOD SPECIMEN Ordering Facility: [facility] Address: [address] [address] Performed By: #### 5 7021-8 #### [facility] CLIA [id number] [address] STATES [facility] Neutrophils/100 WBC (Bld) 44.1 % Normal [facility] Comment on above: Order Comment: Speci men Type: BLOOD SPECIMEN Ordering Facility: [facility] Address: [address] [address] Performed By: #### 5 7021-8 #### [facility] CLIA [id number] [address] [place] Nucleated RBC (Bld) [#/Vol] 10*3/uL Normal <0.01 [facility] Comment on above: Order Comment: Speci men Type: BLOOD SPECIMEN Ordering Facility: [facility] Address: [address] [address] Performed By: #### 5 7021-8 #### [facility] CLIA [id number] [address] [address] [place] Nucleated RBC/100 WBC (Bld) [Ratio] 0.0 /100 WBC Normal [facility] Comment on above: Order Comment: Speci men Type: BLOOD SPECIMEN Ordering Facility: [facility] Address: [address] [address] Performed By: #### 5 7021-8 #### [facility] CLIA [id number] [address] [place] Platelet mean volume (Bld) [Entitic vol] 11.1 fL Normal 9.0-12.7 [facility] Comment on above: Order Comment: Speci men Type: BLOOD SPECIMEN Ordering Facility: [facility] Address: [address] [address] Performed By: #### 5 7021-8 #### [facility] CLIA [id number] [address] Platelets (Bld) [#/Vol] 231 10*3/uL Normal 150-400 [facility] Comment on above: Order Comment: Speci men Type: BLOOD SPECIMEN Ordering Facility: [facility] Address: [address] [address] Performed By: #### 5 7021-8 #### [facility] CLIA [id number] [address] RBC (Bld) [#/Vol] 4.27 10*6/uL Normal 3.90-5.20 [facility] Comment on above: Order Comment: Speci men Type: BLOOD SPECIMEN Ordering Facility: [facility] Address: [address] [address] Performed By: #### 5 7021-8 #### [facility] CLIA [id number] [address] WBC (Bld) [#/Vol] 3.80 10*3/uL Normal 3.70-11.00 [facility] Comment on above: Order Comment: Speci men Type: BLOOD SPECIMEN Ordering Facility: [facility] Address: [address] [place] [address] Performed By: #### 5 7021-8 #### [facility] CLIA [id number] [address] [place] CT ABD/PEL WO IVCONon 2022 CT ABD/PEL WO IVCON * * *Final Report* * * DATE OF EXAM: Oct 18 2022 10:07AM [facility] 0531 - CT ABD/PEL WO IVCON [...] Tissues: No acute abnormality. Lower thorax: Unremarkable. [employer] Tractor Operator (topogram) images: No additional findings. IMPRESSION: Stable findings as detailed above. No acute intra-abdominal or pelvic process seen. Director Funeral: JUANCARLOS Transcribe Date/Time: Oct 18 2022 10:14A Dictated by : ADELA FISHER MD This examination was interpreted and the report reviewed and electronically signed by: ADELA FISHER MD on Oct 18 2022 10:21AM EST [id number] ACN Normal [facility] Comprehensive metabolic 2000 panelon 10-18-2022 Albumin [Mass/Vol] 4.3 g/dL Normal 3.9-4.9 [facility] Comment on above: Order Comment: Speci men Type: BLOOD SPECIMEN Ordering Facility: [facility] Address: [address] [place] [id number] Performed By: #### 2 4323-8, 3040-3 #### [facility] CLIA [id number] [address] ALP [Catalytic activity/Vol] 73 U/L Normal 34-123 [facility] Comment on above: Order Comment: Speci men Type: BLOOD SPECIMEN Ordering Facility: [facility] Address: [address] [place] [address] Performed By: #### 2 4323-8, 3040-3 #### [facility] CLIA [id number] [address] [facility] ALT With P-5'-P [Catalytic activity/Vol] 24 U/L Normal 7-38 [facility] Comment on above: Order Comment: Speci men Type: BLOOD SPECIMEN Ordering Facility: [facility] Address: [address] [place] [address] Performed By: #### 2 4323-8, 0-3 #### [facility] CLIA [id number] [address] Anion gap [Moles/Vol] 8 mmol/L Low 9-18 [facility] Comment on above: Order Comment: Speci men Type: BLOOD SPECIMEN Ordering Facility: [facility] Address: [address] [place] [address] Performed By: #### 2 4323-8, 0-3 #### [facility] CLIA [id number] [address] AST With P-5'-P [Catalytic activity/Vol] 36 U/L High 13-35 [facility] Comment on above: Order Comment: Speci men Type: BLOOD SPECIMEN Ordering Facility: [facility] Address: [address] [place] [address] Performed By: #### 2 4323-8, 3040-3 #### [facility] CLIA [id number] [address] [place] Bilirubin [Mass/Vol] 0.4 mg/dL Normal 0.2-1.3 [facility] Comment on above: Order Comment: Speci men Type: BLOOD SPECIMEN Ordering Facility: [facility] Address: [address] [address] Performed By: #### 2 3-8, 3039-3 #### [facility] CLIA [id number] [address] [place] Calcium [Mass/Vol] 8.9 mg/dL Normal 8.5-10.2 [facility] Comment on above: Order Comment: Speci men Type: BLOOD SPECIMEN Ordering Facility: [facility] Address: [address] [address] Performed By: #### 2 8, 3039-3 #### [facility] CLIA [id number] [address] [place] Chloride [Moles/Vol] 108 mmol/L High 97-105 [facility] Comment on above: Order Comment: Speci men Type: BLOOD SPECIMEN Ordering Facility: [facility] Address: [address] [address] Performed By: #### 2 4322-09, 3039-3 #### [facility] CLIA [id number] 1 [place] [address] [place] CO2 [Moles/Vol] 26 mmol/L Normal 22-30 [facility] Comment on above: Order Comment: Speci men Type: BLOOD SPECIMEN Ordering Facility: [facility] Address: [address] [address] Performed By: #### 2 8, 3039-3 #### [facility] CLIA [id number] 1 [place] [address] [place] Creatinine [Mass/Vol] 0.81 mg/dL Normal 0.58-0.96 [facility] Comment on above: Order Comment: Speci men Type: BLOOD SPECIMEN Ordering Facility: [facility] Address: [address] [place] [address] Performed By: #### 2 43238, 3039-3 #### [facility] CLIA [id number] 1 [place] [address] [place] Creatinine and Glomerular filtration rate.predicted panel (S/P/Bld) 98 mL/min/1.73m??? Normal >=60 [facility] Comment on above: Order Comment: Geraldo marrero Type: BLOOD SPECIMEN Ordering Facility: [facility] Address: [address] [place] [address] Result Comment: Jessica mated Glomerular Filtration Rate [...] Performed By: #### 2 4323-8, 3040-3 #### [facility] CLIA [id number] 1 [place] [address] [place] Glucose [Mass/Vol] 85 mg/dL Normal 74-99 [facility] Comment on above: Order Comment: Geraldo marrero Type: BLOOD SPECIMEN Ordering Facility: [facility] Address: [address] [place] [address] Result Comment: The [place] [employer] (ADA) provides guidance for cutoff [...] Standards of Medical Care in Diabetes 2016, [place] [employer]. Diabetes Care. 2016.39(Suppl 1). Performed By: #### 2 4323-8, 3040-3 #### [facility] CLIA [id number] 1 [place] [address] [place] Potassium [Moles/Vol] 4.3 mmol/L Normal 3.7-5.1 [facility] Comment on above: Order Comment: Speci men Type: BLOOD SPECIMEN Ordering Facility: [facility] Address: [address] [address] Performed By: #### 2 4323-8, 3040-3 #### [facility] CLIA [id number] [address] [facility] Protein [Mass/Vol] 6.4 g/dL Normal 6.3-8.0 [facility] Comment on above: Order Comment: Speci men Type: BLOOD SPECIMEN Ordering Facility: [facility] Address: [address] [place] [address] Performed By: #### 2 4323-8, 3040-3 #### [facility] CLIA [id number] [address] Sodium [Moles/Vol] 142 mmol/L Normal 136-144 [facility] Comment on above: Order Comment: Speci men Type: BLOOD SPECIMEN Ordering Facility: [facility] Address: [address] [place] [address] Performed By: #### 2 4323-8, 3040-3 #### [facility] CLIA [id number] [address] Urea nitrogen [Mass/Vol] 8 mg/dL Normal 7-21 [facility] Comment on above: Order Comment: Speci men Type: BLOOD SPECIMEN Ordering Facility: [facility] Address: [address] [place] [address] Performed By: #### 2 4323-8, 3040-3 #### [facility] CLIA [id number] [address] ED NOTEon 10-18-2022 ED NOTE HNO ID: [id number] Author: Serafin Curiel RN Service: ? Author Type: Registered Nurse Type: ED Notes Filed: 10/18/2022 10:46 AM Note Text: Provider previously at bedside discussing results/findings. Discharge instructions, follow up recommendations and medications reviewed with patient. Pt advised to return to ED with worsening symptoms. Pt verbalizes understanding. Stable and ambulatory upon d/c Normal [facility] ED NOTE HNO ID: [id number] Author: Alannah Carter RN Service: ? Author Type: Registered Nurse Type: ED Notes Filed: 10/18/2022 7:53 AM Note Text: Bed: 26-ED Expected date: Expected time: Means of arrival: Comments: TRIAGE Normal [facility] ED PROV NOTEon 10-18-2022 ED PROV NOTE HNO ID: [id number] Author: Alverto Barrett MD Service: Emergency Medicine [...] (more content not included)... Normal [facility] Lipase SerPl-cCncon 10-19-19 23 Lipase [Catalytic activity/Vol] 34 U/L Normal [facility] Comment on above: Order Comment: Speci men Type: BLOOD SPECIMEN Ordering Facility: [facility] Address: [address] [place] [address] Performed By: #### 2 4323-8, 3040-3 #### [facility] CLIA [id number] [address] [facility] Urinalysis complete panel (U )on 10-18-2022 Bilirubin Ql (U) Negative Normal Negative [facility] Comment on above: Order Comment: Speci men Type: URINE SPECIMEN Ordering Facility: [facility] Address: [address] [place] [address] Performed By: #### 2 4356-8 #### [facility] CLIA [id number] [address] [place] Clarity (Unsp spec) Clear Normal Clear [facility] Comment on above: Order Comment: Speci men Type: URINE SPECIMEN Ordering Facility: [facility] Address: [address] [place] [address] Performed By: #### 2 4356-8 #### [facility] CLIA [id number] [address] [place] Color (U) Light Yellow Normal yellow [facility] Comment on above: Order Comment: Speci men Type: URINE SPECIMEN Ordering Facility: [facility] Address: [address] [address] Performed By: #### 2 4356-8 #### [facility] CLIA [id number] [address] Epithelial cells LM.HPF (Urine sed) [#/Area] Few Normal [facility] Comment on above: Order Comment: Speci men Type: URINE SPECIMEN Ordering Facility: [facility] Address: [address] [place] [address] Performed By: #### 2 4356-8 #### [facility] CLIA [id number] [address] [place] Glucose Test strip (U) [Mass/Vol] Negative Normal Trace, Negative [facility] Comment on above: Order Comment: Speci men Type: URINE SPECIMEN Ordering Facility: [facility] Address: [address] [place] [address] Performed By: #### 2 4356-8 #### [facility] CLIA [id number] [address] [facility] Hemoglobin Ql (U) Negative Normal Negative, Trace [facility] Comment on above: Order Comment: Speci men Type: URINE SPECIMEN Ordering Facility: [facility] Address: [address] [place] [address] Performed By: #### 2 4356-8 #### [facility] CLIA [id number] [address] [facility] Ketones Ql (U) Negative Normal Negative, Trace [facility] Comment on above: Order Comment: Speci men Type: URINE SPECIMEN Ordering Facility: [facility] Address: [address] [place] [address] Performed By: #### 2 4356-8 #### [facility] CLIA [id number] [address] [facility] Leukocyte esterase Test strip Ql (U) Negative Normal Negative, 25 Pat[place]/uL [facility] Comment on above: Order Comment: Speci men Type: URINE SPECIMEN Ordering Facility: [facility] Address: [address] [place], [place] [id number] Performed By: #### 2 4356-8 #### [facility] CLIA [id number] [address] Nitrite Ql (U) Negative Normal Negative [facility] Comment on above: Order Comment: Speci men Type: URINE SPECIMEN Ordering Facility: [facility] Address: [address] [place] [address] Performed By: #### 2 4356-8 #### [facility] CLIA [id number] [address] [place] pH (U) 7.5 [pH] Normal 5.0-8.0 [facility] Comment on above: Order Comment: Speci men Type: URINE SPECIMEN Ordering Facility: [facility] Address: [address] [place] [address] Performed By: #### 2 4356-8 #### [facility] CLIA [id number] [address] Protein (U) [Mass/Vol] Negative Normal Trace, Negative [facility] Comment on above: Order Comment: Speci men Type: URINE SPECIMEN Ordering Facility: [facility] Address: [address] [place] [address] Performed By: #### 2 4356-8 #### [facility] CLIA [id number] [address] RBC LM.HPF (Urine sed) [#/Area] 0-3 /HPF Normal 0-3 /HPF [facility] Comment on above: Order Comment: Speci men Type: URINE SPECIMEN Ordering Facility: [facility] Address: [address] [place] [address] Performed By: #### 2 4356-8 #### [facility] CLIA [id number] [address] Specific gravity (U) [Rel density] 1.008 Normal 1.005-1.030 [facility] Comment on above: Order Comment: Speci men Type: URINE SPECIMEN Ordering Facility: [facility] Address: [address] [address] Performed By: #### 2 4356-8 #### [facility] CLIA [id number] [address] Urobilinogen Ql (U) Normal Normal Negative [facility] Comment on above: Order Comment: Speci men Type: URINE SPECIMEN Ordering Facility: [facility] Address: [address] [place] [address] Performed By: #### 2 4356-8 #### [facility] CLIA [id number] [address] WBC LM.HPF (Urine sed) [#/Area] 0-5 /HPF Normal 0-5 /HPF [facility] Comment on above: Order Comment: Speci men Type: URINE SPECIMEN Ordering Facility: [facility] Address: [address] [place] [address] Performed By: #### 2 4356-8 #### [facility] CLIA [id number] [address] [place] Urinalysis w/ Microon 2022 Bilirubin, SemiQt,Ur Negative Normal NEG [facility] Comment on above: Performed By: #### U AMIC #### [facility] [address] [place] [address] [employer] Up Operator: Baldomero Espinoza MD Blood, Urine Negative Normal NEG [facility] Comment on above: Performed By: #### U AMIC #### [facility] [address] [place] [address] [employer] Operator: Baldomero Espinoza MD Clarity (U) Clear Normal CLEAR [facility] Comment on above: Performed By: #### U AMIC #### [facility] [address] [place] [address] [employer] Operator: Baldomero Espinoza MD Color (U) Yellow Normal YEL [facility] Comment on above: Performed By: #### U AMIC #### [facility] [address] [place], [place] [phone] [employer] Operator: Baldomero Espinoza MD Epithelial cells LM Ql (Urine sed) None Normal 0-25 [facility] Comment on above: Performed By: #### U AMIC #### [facility] [address] [place], [place] [phone] [employer] Operator: Baldomero Espinoza MD Glucose Ql (U) Negative Normal NEG [facility] Comment on above: Performed By: #### U AMIC #### [facility] [address] [place] [address] [place], [place] [phone] [employer] Operator: Baldomero Espinoza MD Ketones Ql (U) Negative Normal NEG [facility] Comment on above: Performed By: #### U AMIC #### [facility] [address] [place] [address] [place], [place] [phone] [employer] Operator: Baldomero Espinoza MD Leukocyte esterase Test strip Ql (U) Negative Normal NEG [facility] Comment on above: Performed By: #### U AMIC #### [address] [place], [place] [phone] [employer] Operator: Baldomero Espinoza MD Nitrite,Ur Negative Normal NEG [facility] Comment on above: Performed By: #### U AMIC #### [facility] [address] [place] [address] [place], [place] [phone] [employer] Operator: Baldomero Espinoza MD PH,Ur 6.5 Normal 5.0-9.0 [facility] Comment on above: Performed By: #### U AMIC #### [facility] [address] [place] [address] [place], [place] [phone] [employer] Operator: Baldomero Espinoza MD Protein Ql (U) Negative Normal NEG [facility] Comment on above: Performed By: #### U AMIC #### [facility] [address] [place] [address] Dr[place], [place] [phone] [employer] Operator: Baldomero Espinoza MD Spec. [place] 1.020 Normal 1.010-1.020 [facility] Comment on above: Performed By: #### U AMIC #### [facility] [address] [place] [phone] [employer] Operator: Baldomero Espinoza MD Urine RBC's None Normal 0-2 [facility] Comment on above: Performed By: #### U AMIC #### [facility] [address] [place] [address] [employer] Operator: Baldomero Espinoza MD Urine WBC's None Normal 0-5 [facility] Comment on above: Performed By: #### U AMIC #### [facility] [address] [place] [phone] [employer] Operator: Baldomero Espinoza MD Urobilinogen,Ur Normal Normal 0.0-1.0 [facility] Comment on above: Performed By: #### U AMIC #### [facility] [address] [place], [place] [phone] [employer] Operator: Baldomero Espinoza MD [facility] 10-08-2022 Forms [id number] 26#1.00CD:127 Normal [facility] Ambulatory Visit Summaryon 0 10-07-2022 Ambulatory Visit Summary Normal [address] [place] [address]- \.br\ Medications\.br\ What How Much When Why [...] Metabolic syndrome\.br\ PCOS- polycystic ovary syndrome\.br\ \.br\ [facility] Family Medicine Office/Clini c Noteon 10-07-2022 Family Medicine Office/Clinic Note Normal [facility] Comment on above: Result Comment: Elec tronically Signed By: Jaquan Paula\.br\Date and Time Signed: 10/07/22 16:37 EDT Operative Reporton 3 Operative Report [id number] 4C#1.00CD:127 Normal [facility] CNOVon 09-18-2022 CNOV Normal [facility] CNPNon 09-04-2022 CNPN Normal [facility] C3 COMPLEMENT Don 06-13-19 Complement C3 [Mass/Vol] 140 mg/dL 86 - 166 mg/dL [facility] C4 COMPLEMENT BLDon 06-13-19 Complement C4 [Mass/Vol] 25 mg/dL 13 - 46 mg/dL [facility] CBC W Auto Differential pane l (Bld)on 06-12-2022 Basophils (Bld) [#/Vol] 0.04 10*3/uL <0.11 k/uL [facility] Basophils/100 WBC (Bld) 0.9 % [facility] Differential cell count method Nom (Bld) Auto [facility] Eosinophils (Bld) [#/Vol] 0.09 10*3/uL <0.46 k/uL [facility] Eosinophils/100 WBC (Bld) 2.0 % [facility] Erythrocyte distribution width (RBC) [Ratio] 12.8 % 11.5 - 15.0 % [facility] Hematocrit (Bld) [Volume fraction] 40.5 % 36.0 - 46.0 % [facility] Hemoglobin (Bld) [Mass/Vol] 13.4 g/dL 11.5 - 15.5 g/dL [facility] Immature granulocytes (Bld) [#/Vol] <0.10 k/uL [facility] Immature granulocytes/100 WBC (Bld) 0.2 % [facility] Lymphocytes (Bld) [#/Vol] 1.73 10*3/uL 1.00 - 4.00 k/uL [facility] Lymphocytes/100 WBC (Bld) 37.9 % [facility] MCH (RBC) [Entitic mass] 30.0 pg 26.0 - 34.0 pg [facility] MCHC (RBC) [Mass/Vol] 33.1 g/dL 30.5 - 36.0 g/dL [facility] MCV (RBC) [Entitic vol] 90.8 fL 80.0 - 100.0 fL [facility] Monocytes (Bld) [#/Vol] 0.23 10*3/uL <0.87 k/uL [facility] Monocytes/100 WBC (Bld) 5.0 % [facility] Neutrophils (Bld) [#/Vol] 2.46 10*3/uL 1.45 - 7.50 k/uL [facility] Neutrophils/100 WBC (Bld) 54.0 % [facility] Nucleated RBC (Bld) [#/Vol] <0.01 k/uL [facility] Nucleated RBC/100 WBC (Bld) [Ratio] 0.0 /100 WBC [facility] Platelet mean volume (Bld) [Entitic vol] 11.3 fL 9.0 - 12.7 fL [facility] Platelets (Bld) [#/Vol] 292 10*3/uL 150 - 400 k/uL [facility] RBC (Bld) [#/Vol] 4.46 10*6/uL 3.90 - 5.20 m/uL [facility] WBC (Bld) [#/Vol] 4.56 10*3/uL 3.70 - 11.00 k/u L [facility] CK CREATINE KINASEon 023 CK [Catalytic activity/Vol] 44 U/L 42 - 196 U/L [facility] Comprehensive metabolic 2000 panelon 06-12-2022 Albumin [Mass/Vol] 4.3 g/dL 3.9 - 4.9 g/dL [facility] ALP [Catalytic activity/Vol] 64 U/L 34 - 123 U/L [facility] ALT [Catalytic activity/Vol] 20 U/L 7 - 38 U/L [facility] Anion gap [Moles/Vol] 10 mmol/L 9 - 18 mmol/L [facility] AST [Catalytic activity/Vol] 33 U/L 13 - 35 U/L [facility] Bilirubin [Mass/Vol] 0.4 mg/dL 0.2 - 1.3 mg/dL [facility] Calcium [Mass/Vol] 9.3 mg/dL 8.5 - 10.2 mg/dL [facility] Chloride [Moles/Vol] 106 mmol/L High 97 - 105 mmol/L [facility] CO2 [Moles/Vol] 23 mmol/L 22 - 30 mmol/L [facility] Creatinine [Mass/Vol] 0.76 mg/dL 0.58 - 0.96 mg/dL [facility] Estimated Glomerular Filtration Rate 106 mL/min/1.73m >=60 mL/min/1.73m [facility] Glucose [Mass/Vol] 79 mg/dL 74 - 99 mg/dL [facility] Potassium [Moles/Vol] 4.0 mmol/L 3.7 - 5.1 mmol/L [facility] Protein [Mass/Vol] 6.9 g/dL 6.3 - 8.0 g/dL [facility] Sodium [Moles/Vol] 139 mmol/L 136 - 144 mmol/L [facility] Urea nitrogen [Mass/Vol] 9 mg/dL 7 - 21 mg/dL [facility] FERRITIN BLDon 06-12-2022 Ferritin [Mass/Vol] 36.6 ng/mL 14.7 - 205.1 ng/ mL [facility] FOLATE SERUMon 06-12-2022 Folate [Mass/Vol] 6.8 ng/mL >4.7 ng/mL [facility] Iron and Iron binding capaci ty panelon 06-12-2022 Iron [Mass/Vol] 100 ug/dL 41 - 186 ug/dL [facility] Iron binding capacity [Mass/Vol] 332 ug/dL 232 - 386 ug/dL [facility] Iron/TIBC [Molar ratio] 30.1 % 15.0 - 57.0 % [facility] MAGNESIUM BLDon 06-12-2022 Magnesium [Mass/Vol] 2.2 mg/dL 1.7 - 2.3 mg/dL [facility] RHEUMATOID FACTOR BLon 06-12 Rheumatoid factor Qn <16 IU/mL [facility] VITAMIN B12 BLOODon 06-13-19 Cobalamin (Vitamin B12) [Mass/Vol] 854 pg/mL 232 - 1,245 pg/mL [facility] CHEMISTRYOrdered By: SYSTEM SYSTEM [...] Remisol CRP [Mass/Vol] 0.6 mg/dL Normal <=1.9mg/dL [facility] Remis ol GFR/1.73 sq M.predicted among non-blacks MDRD (S/P/Bld) [Vol rate/Area] 100 mL/min/1.73 m2 Normal >=59mL/min/1.73 m2 [facility] Chem S Glucose [Mass/Vol] 83 mg/dL Normal [...] 5.8 E9/L Normal 4.0 - 11.0 E9/L [facility] HemeAutoSS AMYLASEon 06-09-2022 Amylase [Catalytic activity/Vol] 41 U/L Normal 25-115 [facility] Comment on above: Performed By: #### G RUBIN, LIPID #### [facility] [address] [address] [address] Stephan Tavares CBC AUTO DIFFon 06-09-2022 BASO # 0.0 103/ul Normal 0.0-0.1 [facility] Comment on above: Performed By: #### G RUBIN, LIPID #### [facility] [address] [place] [address] Dr. Stephan Tavares Basophils/100 WBC (Bld) 0.7 % Normal 0.2-2.0 [facility] Comment on above: Performed By: #### G RUBIN, LIPID #### [facility] [address] [place] [address] Dr. Stephan Tavares EO # 0.1 103/ul Normal 0.0-0.7 [facility] Comment on above: Performed By: #### G RUBIN, LIPID #### [facility] [address] [place] [address] Dr. Stephan Tavares Eosinophils/100 WBC (Bld) 1.5 % Normal 0.9-7.0 [facility] Comment on above: Performed By: #### G RUBIN, LIPID #### [facility] [address] [place] [address] Dr. Stephan Tavares Erythrocyte distribution width (RBC) [Ratio] 13.1 % Normal 11.0-15.0 [facility] Comment on above: Performed By: #### G RUBIN, LIPID #### [facility] [address] [place] [address] Dr. Stephan Tavares Hematocrit (Bld) [Volume fraction] 43.2 % Normal 36.0-48.0 [facility] Comment on above: Performed By: #### G RUBIN, LIPID #### [facility] [address] [place] [address] Dr. Stephan Tavares Hemoglobin (Bld) [Mass/Vol] 14.6 g/dL Normal 12.0-16.0 [facility] Comment on above: Performed By: #### G RUBIN, LIPID #### [facility] [address] [place] [address] Dr. Stephan Tavares IG # 0.01 10e3/ul Normal 0.00-0.03 [facility] Comment on above: Performed By: #### G RUBIN, LIPID #### [facility] [address] [place] [address] Dr. Stephan Tavares IG % 0.2 % Normal 0.0-0.5 [facility] Comment on above: Performed By: #### G RUBIN, LIPID #### [facility] [address] [place] [address] Dr. Stephan Tavares LYMPH # 2.1 103/ul Normal 1.2-3.8 [facility] Comment on above: Performed By: #### G RUBIN, LIPID #### [facility] [address] [place] [address] Dr. Stephan Tavares Lymphocytes/100 WBC (Bld) 39.1 % Normal 20.5-60.0 [facility] Comment on above: Performed By: #### G RUBIN, LIPID #### [facility] [address] [place] [address] Dr. Stephan Tavares MANUAL DIFF REQ NO Normal [facility] Comment on above: Performed By: #### G RUBIN, LIPID #### [facility] [address] [place] [address] Dr. Stephan Tavares MCH (RBC) [Entitic mass] 30.2 pg Normal 26.7-34.0 [facility] Comment on above: Performed By: #### G RUBIN, LIPID #### [facility] [address] [place] [address] Dr. Stephan Tavares MCHC (RBC) [Mass/Vol] 33.8 g/dL Normal 29.9-35.2 [facility] Comment on above: Performed By: #### G RUBIN, LIPID #### [facility] [address] [place] [address] Dr. Stephan Tavares MCV (RBC) [Entitic vol] 89.3 fL Normal 81.0-99.0 [facility] Comment on above: Performed By: #### G RUBIN, LIPID #### [facility] [address] [place] [address] Dr. Stephan Tavares MONO # 0.3 103/ul Normal 0.3-0.8 [facility] Comment on above: Performed By: #### G RUBIN, LIPID #### [facility] [address] [place] [address] Dr. Stephan Tavares Monocytes/100 WBC (Bld) 5.2 % Normal 1.7-12.0 [facility] Comment on above: Performed By: #### G RUBIN, LIPID #### [facility] [address] [place] [address] Dr. Stephan Tavares NEUT # 2.9 103/ul Normal 1.4-6.5 [facility] Comment on above: Performed By: #### G RUBIN, LIPID #### [facility] [address] [place] [address] Dr. Stephan Tavares Neutrophils/100 WBC (Bld) 53.3 % Normal 43.0-75.0 [facility] Comment on above: Performed By: #### G RUBIN, LIPID #### [facility] [address] [place] [address] Dr. Stephan Tavares Platelet mean volume (Bld) [Entitic vol] 10.9 fL Normal 9.5-13.5 [facility] Comment on above: Performed By: #### G RUBIN, LIPID #### [facility] [address] [place] [address] Dr. Stephan Tavares PLT 271 103/ul Normal 150-450 [facility] Comment on above: Performed By: #### G RUBIN, LIPID #### [facility] [address] [place] [address] Dr. Stephan Tavares RBC 4.84 106/ul Normal 4.20-5.40 [facility] Comment on above: Performed By: #### G RUBIN, LIPID #### [facility] [address] [place] [address] Dr. Stephan Tavares WBC 5.4 103/ul Normal 4.0-11.0 [facility] Comment on above: Performed By: #### G RUBIN, LIPID #### [facility] [address] [place] [address] ABD/PELVIS WO CONon [...] ALVERTO PHAM Date: 2022-06-09 16:14 Normal [facility] ER URINE PROFILEon 3 Bilirubin Ql (U) Negative Normal NEGATIVE [facility] Comment on above: Performed By: #### G RUBIN, LIPID #### [facility] [address] [place] [address] Dr. Stephan Tavares Clarity (U) CLEAR Normal CLEAR [facility] Comment on above: Performed By: #### G RUBIN, LIPID #### [facility] [address] [address] [address] Stephan Tavares Color (U) LT. YELLOW Normal YELLOW [facility] Comment on above: Performed By: #### G RUBIN, LIPID #### [facility] [address] [place] [address] Dr. Stephan Tavares ERUAHD A micrscopic examination will be performed if indicated. Normal [facility] Comment on above: Performed By: #### G RUBIN, LIPID #### [facility] [address] [address] [address] Stephan Tavares Glucose Ql (U) Negative Normal NEGATIVE [facility] Comment on above: Performed By: #### G RUBIN, LIPID #### [facility] [address] [address] [address] Stephan Tavares Hemoglobin Ql (U) Negative Normal NEGATIVE [facility] Comment on above: Performed By: #### G RUBIN, LIPID #### [facility] [address] [address] [address] Stephan Tavares Ketones Ql (U) Negative Normal NEGATIVE [facility] Comment on above: Performed By: #### G RUBIN, LIPID #### [facility] [address] [address] [address] Stephan Tavares LEUKOCYTES Negative Normal NEGATIVE [facility] Comment on above: Performed By: #### G RUBIN, LIPID #### [facility] [address] [address] [address] Stephan Tavares Nitrite Ql (U) Negative Normal NEGATIVE [facility] Comment on above: Performed By: #### G RUBIN, LIPID #### [facility] [address] [address] [address] Stephan Tavares pH (U) 7.5 [pH] Normal 5-9 [facility] Comment on above: Performed By: #### G RUBIN, LIPID #### [facility] [address] [address] [address] Stephan Tavares SPEC GRAVITY 1.015 Normal 1.005-<=1.025 [facility] Comment on above: Performed By: #### G RUBIN, LIPID #### [facility] [address] [address] [address] Stephan Tavares UA PROTEIN Negative Normal NEGATIVE/ TRACE [facility] Comment on above: Performed By: #### G RUBIN, LIPID #### [facility] [address] [place] [address] Dr. Stephan Tavares UR MICRO IND NOT INDICATED Normal [facility] Comment on above: Performed By: #### G RUBIN, LIPID #### [facility] [address] [address] [address] Stephan Tavares Urobilinogen Qn (U) 0.2 {Munir'U}/dL Normal 0.2 - 1. 0 [facility] Comment on above: Performed By: #### G RUBIN, LIPID #### [facility] [address] [address] [address] Stephan Tavares LIPASEon 06-09-2022 Lipase [Catalytic activity/Vol] 120.0 U/L Normal 73.0-393.0 [facility] Comment on above: Performed By: #### G RUBIN, LIPID #### [facility] [address] [address] [address] Stephan Tavares PROF 14(COMP METB)on 023 Albumin [Mass/Vol] 4.4 g/dL Normal 3.4-5.0 [facility] Comment on above: Performed By: #### G RUBIN, LIPID #### [facility] [address] [place] [address] Dr. Stephan Tavares Albumin/Globulin [Mass ratio] 1.1 {ratio} Normal [facility] Comment on above: Performed By: #### G RUBIN, LIPID #### [facility] [address] [place] [address] Dr. Stephan Tavares ALP [Catalytic activity/Vol] 74 U/L Normal 46-116 [facility] Comment on above: Performed By: #### G RUBIN, LIPID #### [facility] [address] [address] [address] Stephan Tavares ALT [Catalytic activity/Vol] 40 U/L Normal 14-59 [facility] Comment on above: Performed By: #### G RUBIN, LIPID #### [facility] [address] [address] [address] Stephan Tavares Anion gap [Moles/Vol] 16.5 mmol/L Normal [facility] Comment on above: Performed By: #### G RUBIN, LIPID #### [facility] [address] [place] [address] Dr. Stephan Tavares AST [Catalytic activity/Vol] 45 U/L Critically high 15-37 [facility] Comment on above: Performed By: #### G RUBIN, LIPID #### [facility] [address] [address] [address] Stephan Tavares Bilirubin [Mass/Vol] 0.5 mg/dL Normal 0.2-1.0 [facility] Comment on above: Performed By: #### G RUBIN, LIPID #### [facility] [address] [address] [address] Stephan Tavares Calcium [Mass/Vol] 9.3 mg/dL Normal 8.5-10.1 [facility] Comment on above: Performed By: #### G RUBIN, LIPID #### [facility] [address] [address] [address] Stephan Tavares Chloride [Moles/Vol] 103 mmol/L Normal 98-107 [facility] Comment on above: Performed By: #### G RUBIN, LIPID #### [facility] [address] [place] [address] Dr. Stephan Tavares CO2 [Moles/Vol] 24.9 mmol/L Normal 21.0-32.0 [facility] Comment on above: Performed By: #### G RUBIN, LIPID #### [facility] [address] [place] [address] Dr. Stephan Tavares Creatinine [Mass/Vol] 0.88 mg/dL Normal 0.55-1.02 [facility] Comment on above: Performed By: #### G RUBIN, LIPID #### [facility] [address] [place] [address] Dr. Stephan Tavares EGFR-AF NAMIBIAN >60 Normal >=60 [facility] Comment on above: Performed By: #### G RUBIN, LIPID #### [facility] [address] [place] [address] Dr. Stephan Tavares EGFR-NON AF NAMIBIAN >60 Normal >=60 [facility] Comment on above: Performed By: #### G RUBIN, LIPID #### [facility] [address] [place] [address] Dr. Stephan Tavares Globulin (S) [Mass/Vol] 3.9 g/dL Normal [facility] Comment on above: Performed By: #### G RUBIN, LIPID #### [facility] [address] [address] [address] Stephan Tavares Glucose [Mass/Vol] 79 mg/dL Normal 74-106 [facility] Comment on above: Performed By: #### G RUBIN, LIPID #### [facility] [address] [address] [address] Stephan Tavares Potassium [Moles/Vol] 3.4 mmol/L Critically low 3.5-5.1 [facility] Comment on above: Performed By: #### G RUBIN, LIPID #### [facility] [address] [address] [address] Stephan Tavares Protein [Mass/Vol] 8.3 g/dL Critically high 6.4-8.2 [facility] Comment on above: Performed By: #### G RUBIN, LIPID #### [facility] [address] [address] [address] Stephan Tavares Sodium [Moles/Vol] 141 mmol/L Normal 136-145 [facility] Comment on above: Performed By: #### G RUBIN, LIPID #### [facility] [address] [address] [address] Stephan Tavares Urea nitrogen [Mass/Vol] 10.0 mg/dL Normal 7.0-18.0 [facility] Comment on above: Performed By: #### G RUBIN, LIPID #### [facility] [address] [address] [address] Stephan Tavares Urea nitrogen/Creatinine [Mass ratio] 11.4 mg/mg Normal [facility] Comment on above: Performed By: #### G RUBIN, LIPID #### [facility] [address] [address] [address] Stephan Tavares US PELVIS TRANSVAGon 06-09- 023 US PELVIS TRANSVAG EXAMINATION: US PELVIS [...] by: ALVERTO PHAM Date: 2022-06-09 17:04 Normal [facility] HLA B 27on 05-28-2022 HLA-B27 Negative Normal [facility] Comment on above: Result Comment: HLA- B*27 Negative B27 allele interpretation for all loci based on IMGT/HLA database version 3.44 This test was developed and its performance characteristics determined by [employer]. It has not been cleared or approved by the Food and Drug Administration. [facility] CLIA ID Number [id number] . This test was performed using PCR (Polymerase Chain Reaction)/SSOP (Sequence Specific Oligonucleotide Probes) technique. SBT (Sequence Based Typing) and/or SSP (Sequence Specific Primers) may be used as supplemental methods when necessary. Please contact [facility] Customer Service at if you have any questions. . Director of [facility] Laboratory Dr Tino Sampson, PhD Performed By: #### B MP, MG #### [facility] [address] [place] [address] Dr. Stephan Tavares LYME DISEASE, WESTERN BLOTon 05-27-2022 IgG P18 Ab. Absent [facility] Comment on above: Performed By: #### B MP, MG #### [facility] [address] [place] [address] Dr. Stephan Tavares IgG P23 Ab. Absent [facility] Comment on above: Performed By: #### B MP, MG #### [facility] [address] [place] [address] Dr. Stephan Tavares IgG P28 Ab. Absent [facility] Comment on above: Performed By: #### B MP, MG #### [facility] [address] [place] [address] Dr. Stephan Tavares IgG P30 Ab. Absent [facility] Comment on above: Performed By: #### B MP, MG #### [facility] [address] [place] [address] Dr. Stephan Tavares IgG P39 Ab. Absent [facility] Comment on above: Performed By: #### B MP, MG #### [facility] [address] [place] [address] Dr. Stephan Tavares IgG P41 Ab. Present Abnormal [facility] Comment on above: Performed By: #### B MP, MG #### [facility] [address] [place] [address] Dr. Stephan Tavares IgG P45 Ab. Absent Normal [facility] Comment on above: Performed By: #### B MP, MG #### [facility] [address] [place] [address] Dr. Stephan Tavares IgG P58 Ab. Absent [facility] Comment on above: Performed By: #### B MP, MG #### [facility] [address] [place] [address] Dr. Stephan Tavares IgG P66 Ab. Absent Normal [facility] Comment on above: Performed By: #### B MP, MG #### [facility] [address] [place] [address] Dr. Stephan Tavares IgG P93 Ab. Absent [facility] Comment on above: Performed By: #### B MP, MG #### [facility] [address] [place] [address] Dr. Stephan Tavares IgM P23 Ab. Present Abnormal [facility] Comment on above: Performed By: #### B MP, MG #### [facility] [address] [place] [address] Dr. Stephan Tavares IgM P39 Ab. Absent [facility] Comment on above: Performed By: #### B MP, MG #### [facility] [address] [place] [address] Dr. Stephan Tavares IgM P41 Ab. Present Abnormal [facility] Comment on above: Performed By: #### B MP, MG #### [facility] [address] [place] [address] Dr. Stephan Tavares Lyme IgG WB Interp. Negative Normal [facility] Comment on above: Result Comment: Posi tive: 5 of the following Borrelia-specific bands: 18,23,28,30,39,41,45,58, 66, and 93. Negative: No bands or banding patterns which do not meet positive criteria. Performed By: #### B TOMMIE, MG #### [facility] [address] [place], [place] [address] Dr. Stephan Tavares Lyme IgM WB Interp. Positive Abnormal [facility] Comment on above: Result Comment: [...] are those recommended by CDC/ASTPHLD. p23=Osp C, e87=[id number] . Note: Sera from individuals with the following may cross react in the Lyme Line Blot assays: other spirochetal diseases (periodontal disease, leptospirosis, relapsing fever, yaws, and pinta); connective autoimmune (Rheumatoid Arthritis and Systemic Lupus Erythematosus and also individuals with Antinuclear Antibody); other infections ([place] Spotted Fever; Prabhakar-Rangel Virus, and Cytomegalovirus). . . Please Note: Lyme immunoblot alone is not recommended for the diagnosis of Lyme disease. Current guidelines recommend the use of a two-tiered approach to Lyme serology testing to improve the sensitivity and specificity of testing. [facility] offers test code 608541 Lyme Disease Serology with Reflex to aid in the diagnosis of Lyme Disease. Performed By: #### B TOMMIE, MG #### [facility] [address] [address] [address] Stephan Tavares MISAEL EIA W/REFLEX 9 BIOMARKER Son 05-25-2022 MISAEL Direct Negative Normal Negative [facility] Comment on above: Performed By: #### A NARF9 #### [facility] [address] [place] [address] [id number] [address] Stephan Tavares SLE PROFILE Aon 05-25-2022 Anti-DNA (DS) Ab Qn 2 IU/mL Normal 0-9 [facility] Comment on above: Result Comment: Nega tive <5 Equivocal 5 - 9 Positive >9 Performed By: #### S RONALDO #### [facility] [address] [address] [address] Stephan Tavares Antichromatin Antibodies <0.2 Normal 0.0-0.9 [facility] Comment on above: Performed By: #### S RONALDO #### [facility] [address] [address] [address] Stephan Tavares RA Latex Turbid. <10.0 Normal <14.0 [facility] Comment on above: Performed By: #### S RONALDO #### [facility] [address] [address] [address] Stephan Tavares HEAVY [employer]GER HELPER Antibodies 0.3 AI Normal 0.0-0.9 [facility] Comment on above: Performed By: #### S RONALDO #### [facility] [address] [place] [address] Dr. Stephan Tavares Sjogren's Anti-SS-A <0.2 Normal 0.0-0.9 [facility] Comment on above: Performed By: #### S RONALDO #### [facility] [address] [address] [address] Stephan Tavares Sjogren's Anti-SS-B <0.2 Normal 0.0-0.9 [facility] Comment on above: Performed By: #### S RONALDO #### [facility] [address] [address] [address] Stephan Tavares Mc Antibodies <0.2 Normal 0.0-0.9 [facility] Comment on above: Performed By: #### S RONALDO #### [facility] [address] [address] [address] Stephan Tavares CBC AUTO DIFFon 05-22-2022 BASO # 0.0 103/ul Normal 0.0-0.1 [facility] Comment on above: Performed By: #### C BC #### [facility] [address] [address] [address] Stephan Tavares Basophils/100 WBC (Bld) 1.0 % Normal 0.2-2.0 [facility] Comment on above: Performed By: #### C BC #### [facility] [address] [place] [address] Dr. Stephan Tavares EO # 0.1 103/ul Normal 0.0-0.7 [facility] Comment on above: Performed By: #### C BC #### [facility] [address] [place] [address] Dr. Stephan Tavares Eosinophils/100 WBC (Bld) 1.3 % Normal 0.9-7.0 [facility] Comment on above: Performed By: #### C BC #### [facility] [address] [place] [address] Dr. Stephan Tavares Erythrocyte distribution width (RBC) [Ratio] 13.3 % Normal 11.0-15.0 [facility] Comment on above: Performed By: #### C BC #### [facility] [address] [place] [address] Dr. Stephan Tavares Hematocrit (Bld) [Volume fraction] 36.7 % Normal 36.0-48.0 [facility] Comment on above: Performed By: #### C BC #### [facility] [address] [place] [address] Dr. Stephan Tavares Hemoglobin (Bld) [Mass/Vol] 12.6 g/dL Normal 12.0-16.0 [facility] Comment on above: Performed By: #### C BC #### [facility] [address] [place] [address] Dr. Stephan Tavares IG # 0.00 10e3/ul Normal 0.00-0.03 [facility] Comment on above: Performed By: #### C BC #### [facility] [address] [place] [address] Dr. Stephan Tavares IG % 0.0 % Normal 0.0-0.5 [facility] Comment on above: Performed By: #### C BC #### [facility] [address] [place] [address] Dr. Stephan Tavares LYMPH # 1.2 103/ul Normal 1.2-3.8 [facility] Comment on above: Performed By: #### C BC #### [facility] [address] [address] [address] Stephan Tavares Lymphocytes/100 WBC (Bld) 30.9 % Normal 20.5-60.0 [facility] Comment on above: Performed By: #### C BC #### [facility] [address] [place] [address] Dr. Stephan Tavares MANUAL DIFF REQ NO Normal [facility] Comment on above: Performed By: #### C BC #### [facility] [address] [place] [address] Dr. Stephan Tavares MCH (RBC) [Entitic mass] 30.6 pg Normal 26.7-34.0 [facility] Comment on above: Performed By: #### C BC #### [facility] [address] [place] [address] Dr. Stephan Tavares MCHC (RBC) [Mass/Vol] 34.3 g/dL Normal 29.9-35.2 [facility] Comment on above: Performed By: #### C BC #### [facility] [address] [place] [address] Dr. Stephan Tavares MCV (RBC) [Entitic vol] 89.1 fL Normal 81.0-99.0 [facility] Comment on above: Performed By: #### C BC #### [facility] [address] [place] [address] Dr. Stephan Tavares MONO # 0.2 103/ul Critically low 0.3-0.8 [facility] Comment on above: Performed By: #### C BC #### [facility] [address] [place] [address] Dr. Stephan Tavares Monocytes/100 WBC (Bld) 5.9 % Normal 1.7-12.0 [facility] Comment on above: Performed By: #### C BC #### [facility] [address] [place] [address] Dr. Stephan Tavares NEUT # 2.4 103/ul Normal 1.4-6.5 [facility] Comment on above: Performed By: #### C BC #### [facility] [address] [address] [address] Stephan Tavares Neutrophils/100 WBC (Bld) 60.9 % Normal 43.0-75.0 [facility] Comment on above: Performed By: #### C BC #### [facility] [address] [address] [address] Stephan Tavares Platelet mean volume (Bld) [Entitic vol] 10.9 fL Normal 9.5-13.5 [facility] Comment on above: Performed By: #### C BC #### [facility] [address] [address] [address] Stephan Tavares PLT 250 103/ul Normal 150-450 [facility] Comment on above: Performed By: #### C BC #### [facility] [address] [place] [address] Dr. Stephan Tavares RBC 4.12 106/ul Critically low 4.20-5.40 [facility] Comment on above: Performed By: #### C BC #### [facility] [address] [address] [address] Stephan Tavares WBC 3.9 103/ul Critically low 4.0-11.0 [facility] Comment on above: Performed By: #### C BC #### [facility] [address] [place] [address] Dr. Stephan Tavares CRPon 05-22-2022 CRP [Mass/Vol] mg/L Normal <=1.0 [facility] Comment on above: Performed By: #### G RUBIN, LIPID #### [facility] [address] [place] [address] Dr. Stephan Tavares SED RATE WESTERGRENon 2022 SED RATE 4 mm/hr Normal <=20 [facility] Comment on above: Performed By: #### S EDR #### [facility] [address] [place] [address] Dr. Stephan Tavares URIC ACID SERUMon 05-22-2022 Urate [Mass/Vol] 4.5 mg/dL Normal 2.6-6.0 [facility] Comment on above: Performed By: #### G RUBIN, LIPID #### [facility] [address] [place] [address] Dr. Stephan Tvaares EGD - THERAPEUTIC, EUS, OR T UBE INTERVENTIONSon 03-06-2022 [facility] US PELVIS AND TRANSVAGon [...] BASO # 0.0 103/ul Normal 0.0-0.1 [facility] Comment on above: Performed By: #### G RUBIN, LIPID #### [facility] [address] [place] [address] Dr. Stephan Tavares Basophils/100 WBC (Bld) 0.8 % Normal 0.2-2.0 [facility] Comment on above: Performed By: #### G RUBIN, LIPID #### [facility] [address] [place] [address] Dr. Stephan Tavares EO # 0.1 103/ul Normal 0.0-0.7 [facility] Comment on above: Performed By: #### G RUBIN, LIPID #### [facility] [address] [place] [address] Dr. Stephan Tavares Eosinophils/100 WBC (Bld) 2.0 % Normal 0.9-7.0 [facility] Comment on above: Performed By: #### G RUBIN, LIPID #### [facility] [address] [place] [address] Dr. Stephan Tavares Erythrocyte distribution width (RBC) [Ratio] 13.2 % Normal 11.0-15.0 [facility] Comment on above: Performed By: #### G RUBIN, LIPID #### [facility] [address] [place] [address] Dr. Stephan Tavares Hematocrit (Bld) [Volume fraction] 36.2 % Normal 36.0-48.0 [facility] Comment on above: Performed By: #### G RUBIN, LIPID #### [facility] [address] [place] [address] Dr. Stephan Tavares Hemoglobin (Bld) [Mass/Vol] 12.6 g/dL Normal 12.0-16.0 [facility] Comment on above: Performed By: #### G RUBIN, LIPID #### [facility] [address] [place] [address] Dr. Stephan Tavares IG # 0.00 10e3/ul Normal 0.00-0.03 [facility] Comment on above: Performed By: #### G RUBIN, LIPID #### [facility] [address] [place] [address] Dr. Stephan Tavares IG % 0.0 % Normal 0.0-0.5 [facility] Comment on above: Performed By: #### G RUBIN, LIPID #### [facility] [address] [place] [address] Dr. Stephan Tavares LYMPH # 2.3 103/ul Normal 1.2-3.8 [facility] Comment on above: Performed By: #### G RUBIN, LIPID #### [facility] [address] [place] [address] Dr. Stephan Tavares Lymphocytes/100 WBC (Bld) 46.3 % Normal 20.5-60.0 [facility] Comment on above: Performed By: #### G RUBIN, LIPID #### [facility] [address] [place] [address] Dr. Stephan Tavares MANUAL DIFF REQ NO Normal [facility] Comment on above: Performed By: #### G RUBIN, LIPID #### [facility] [address] [place] [address] Dr. Stephan Tavares MCH (RBC) [Entitic mass] 29.2 pg Normal 26.7-34.0 [facility] Comment on above: Performed By: #### G RUBIN, LIPID #### [facility] [address] [address] [address] Stephan Tavares MCHC (RBC) [Mass/Vol] 34.8 g/dL Normal 29.9-35.2 [facility] Comment on above: Performed By: #### G RUBIN, LIPID #### [facility] [address] [place] [address] Dr. Stephan Tavares MCV (RBC) [Entitic vol] 84.0 fL Normal 81.0-99.0 [facility] Comment on above: Performed By: #### G RUBIN, LIPID #### [facility] [address] [place] [address] Dr. Stephan Tavares MONO # 0.4 103/ul Normal 0.3-0.8 [facility] Comment on above: Performed By: #### G RUBIN, LIPID #### [facility] [address] [place] [address] Dr. Stephan Tavares Monocytes/100 WBC (Bld) 8.7 % Normal 1.7-12.0 [facility] Comment on above: Performed By: #### G RUBIN, LIPID #### [facility] [address] [place] [address] Dr. Stephan Tavares NEUT # 2.1 103/ul Normal 1.4-6.5 [facility] Comment on above: Performed By: #### G RUBIN, LIPID #### [facility] [address] [place] [address] Dr. Stephan Tavares Neutrophils/100 WBC (Bld) 42.2 % Critically low 43.0-75.0 [facility] Comment on above: Performed By: #### G RUBIN, LIPID #### [facility] [address] [place] [address] Dr. Stephan Tavares Platelet mean volume (Bld) [Entitic vol] 11.1 fL Normal 9.5-13.5 [facility] Comment on above: Performed By: #### G RUBIN, LIPID #### [facility] [address] [place] [address] Dr. Stephan Tavares PLT 228 103/ul Normal 150-450 [facility] Comment on above: Performed By: #### G RUBIN, LIPID #### [facility] [address] [place] [address] Dr. Stephan Tavares RBC 4.31 106/ul Normal 4.20-5.40 [facility] Comment on above: Performed By: #### G RUBIN, LIPID #### [facility] [address] [place] [address] Dr. Stephan Tavares WBC 5.1 103/ul Normal 4.0-11.0 [facility] Comment on above: Performed By: #### G RUBIN, LIPID #### [facility] [address] [place] [address] Dr. Stephan Tavares MAGNESIUMon 02-17-2022 Magnesium [Mass/Vol] 1.8 mg/dL Normal 1.8-2.4 [facility] Comment on above: Performed By: #### B MP, MG #### [facility] [address] [place] [address] Dr. Stephan Tavares PROF CHEM 8 (BAS METB)on Anion gap [Moles/Vol] 16.1 mmol/L Normal [facility] Comment on above: Performed By: #### B MP, MG #### [facility] [address] [place] [address] Dr. Stephan Tavares Calcium [Mass/Vol] 8.7 mg/dL Normal 8.5-10.1 [facility] Comment on above: Performed By: #### B MP, MG #### [facility] [address] [place] [address] Dr. Stephan Tavares Chloride [Moles/Vol] 104 mmol/L Normal 98-107 [facility] Comment on above: Performed By: #### B MP, MG #### [facility] [address] [place] [address] Dr. Stephan Tavares CO2 [Moles/Vol] 22.0 mmol/L Normal 21.0-32.0 [facility] Comment on above: Performed By: #### B MP, MG #### [facility] [address] [place] [address] Dr. Stephan Tavares Creatinine [Mass/Vol] 0.74 mg/dL Normal 0.55-1.02 [facility] Comment on above: Performed By: #### B MP, MG #### [facility] [address] [place] [address] Dr. Stephan Tavares EGFR-AF NAMIBIAN >60 Normal >=60 [facility] Comment on above: Performed By: #### B MP, MG #### [facility] [address] [place] [address] Dr. Stephan Tavares EGFR-NON AF NAMIBIAN >60 Normal >=60 [facility] Comment on above: Performed By: #### B MP, MG #### [facility] [address] [place] [address] Dr. Stephan Tavares Glucose [Mass/Vol] 88 mg/dL Normal 74-106 [facility] Comment on above: Performed By: #### B MP, MG #### [facility] [address] [place] [address] Dr. Stephan Tavares Potassium [Moles/Vol] 4.1 mmol/L Normal 3.5-5.1 [facility] Comment on above: Result Comment: spec imen hemolysed. result could be spurious. suggest repeat. Performed By: #### B MP, MG #### [facility] [address] [place] [address] Dr. Stephan Tavares Sodium [Moles/Vol] 138 mmol/L Normal 136-145 [facility] Comment on above: Performed By: #### B MP, MG #### [facility] [address] [place] [address] Dr. Stephan Tavares Urea nitrogen [Mass/Vol] 12.0 mg/dL Normal 7.0-18.0 [facility] Comment on above: Performed By: #### B MP, MG #### [facility] [address] [place] [address] Dr. Stephan Tavares Urea nitrogen/Creatinine [Mass ratio] 16.2 mg/mg Normal [facility] Comment on above: Performed By: #### B MP, MG #### [facility] [address] [place] [address] Dr. Stephan Tavares Basic metabolic 2000 panelon 01-28-2022 Anion gap [Moles/Vol] 10 mmol/L 9 - 18 mmol/L [facility] Calcium [Mass/Vol] 9.3 mg/dL 8.5 - 10.2 mg/dL [facility] Chloride [Moles/Vol] 105 mmol/L 97 - 105 mmol/L [facility] CO2 [Moles/Vol] 22 mmol/L 22 - 30 mmol/L [facility] Creatinine [Mass/Vol] 0.68 mg/dL 0.58 - 0.96 mg/dL [facility] Estimated Glomerular Filtration Rate 119 mL/min/1.73m >=60 mL/min/1.73m [facility] Glucose [Mass/Vol] 77 mg/dL 74 - 99 mg/dL [facility] Potassium [Moles/Vol] 4.3 mmol/L 3.7 - 5.1 mmol/L [facility] Sodium [Moles/Vol] 137 mmol/L 136 - 144 mmol/L [facility] Urea nitrogen [Mass/Vol] 9 mg/dL 7 - 21 mg/dL [facility] CBC panel Auto (Bld)on 01-28 Erythrocyte distribution width (RBC) [Ratio] 13.3 % 11.5 - 15.0 % [facility] Hematocrit (Bld) [Volume fraction] 42.9 % 36.0 - 46.0 % [facility] Hemoglobin (Bld) [Mass/Vol] 14.6 g/dL 11.5 - 15.5 g/dL [facility] MCH (RBC) [Entitic mass] 29.8 pg 26.0 - 34.0 pg [facility] MCHC (RBC) [Mass/Vol] 34.0 g/dL 30.5 - 36.0 g/dL [facility] MCV (RBC) [Entitic vol] 87.6 fL 80.0 - 100.0 fL [facility] Nucleated RBC (Bld) [#/Vol] <0.01 k/uL [facility] Platelet mean volume (Bld) [Entitic vol] 11.4 fL 9.0 - 12.7 fL [facility] Platelets (Bld) [#/Vol] 247 10*3/uL 150 - 400 k/uL [facility] RBC (Bld) [#/Vol] 4.90 10*6/uL 3.90 - 5.20 m/uL [facility] WBC (Bld) [#/Vol] 4.05 10*3/uL 3.70 - 11.00 k/u L [facility] EKGon 01-28-2022 Atrial Rate 61 BPM [facility] Calculated P [place] 76 degrees [facility] Calculated R [place] 73 degrees [facility] Calculated T [place] 57 degrees [facility] P-R Interval 144 ms [facility] QRS Duration 86 ms [facility] QT Interval 424 ms [facility] QTC Calculation ([place]) 426 ms [facility] Ventricular Rate 61 BPM [facility] TYPE AND SCREEN,30 DAYon ABO O [facility] HIstorical Ab Scr Status Negative [facility] Rh Nom (Bld) Positive [facility] EGD - THERAPEUTIC, EUS, OR T UBE INTERVENTIONSon 12-25-2021 [facility] METANEPHRINES PLASMA FREEon 11-01-2021 Metanephrine, Pl <10.0 Normal 0.0-88.0 [facility] Comment on above: Performed By: #### G RUBIN, LIPID #### [facility] [address] [address] [address] Stephan Tavares Normetanephrine, Pl 19.4 pg/mL Normal 0.0-210.1 [facility] Comment on above: Performed By: #### G RUBIN, LIPID #### [facility] [address] [address] [address] Stephan Tavares CORTISOLon 10-28-2021 Cortisol 4.6 ug/dL Normal [facility] Comment on above: Result Comment: Wesley isol AM 6.2 - 19.4 Cortisol PM 2.3 - 11.9 Performed By: #### C ORTISO #### [facility] [address] [address] [address] Stephan Tavares CBC AUTO DIFFon 10-27-2021 BASO # 0.0 103/ul Normal 0.0-0.1 [facility] Comment on above: Performed By: #### G RUBIN, LIPID #### [facility] [address] [address] [address] Stephan Tavares Basophils/100 WBC (Bld) 0.5 % Normal 0.2-2.0 [facility] Comment on above: Performed By: #### G RUBIN, LIPID #### [facility] [address] [place] [address] Dr. Stephan Tavares EO # 0.0 103/ul Normal 0.0-0.7 [facility] Comment on above: Performed By: #### G RUBIN, LIPID #### [facility] [address] [place] [address] Dr. Stephan Tavares Eosinophils/100 WBC (Bld) 0.5 % Critically low 0.9-7.0 [facility] Comment on above: Performed By: #### G RUBIN, LIPID #### [facility] [address] [place] [address] Dr. Stephan Tavares Erythrocyte distribution width (RBC) [Ratio] 12.8 % Normal 11.0-15.0 [facility] Comment on above: Performed By: #### G RUBIN, LIPID #### [facility] [address] [place] [address] Dr. Stephan Tavares Hematocrit (Bld) [Volume fraction] 37.5 % Normal 36.0-48.0 [facility] Comment on above: Performed By: #### G RUBIN, LIPID #### [facility] [address] [place] [address] Dr. Stephan Tavares Hemoglobin (Bld) [Mass/Vol] 12.9 g/dL Normal 12.0-16.0 [facility] Comment on above: Performed By: #### G RUBIN, LIPID #### [facility] [address] [place] [address] Dr. Stephan Tavares IG # 0.01 10e3/ul Normal 0.00-0.03 [facility] Comment on above: Performed By: #### G RUBIN, LIPID #### [facility] [address] [place] [address] Dr. Stephan Tavares IG % 0.2 % Normal 0.0-0.5 [facility] Comment on above: Performed By: #### G RUBIN, LIPID #### [facility] [address] [place] [address] Dr. tSephan Tavares LYMPH # 1.9 103/ul Normal 1.2-3.8 [facility] Comment on above: Performed By: #### G RUBIN, LIPID #### [facility] [address] [place] [address] Dr. Stephan Tavares Lymphocytes/100 WBC (Bld) 34.6 % Normal 20.5-60.0 [facility] Comment on above: Performed By: #### G RUBIN, LIPID #### [facility] [address] [place] [address] Dr. Stephan Tavares MANUAL DIFF REQ NO Normal [facility] Comment on above: Performed By: #### G RUBIN, LIPID #### [facility] [address] [place] [address] Dr. Stephan Tavares MCH (RBC) [Entitic mass] 30.3 pg Normal 26.7-34.0 [facility] Comment on above: Performed By: #### G RUBIN, LIPID #### [facility] [address] [place] [address] Dr. Stephan Tavares MCHC (RBC) [Mass/Vol] 34.4 g/dL Normal 29.9-35.2 [facility] Comment on above: Performed By: #### G RUBIN, LIPID #### [facility] [address] [place] [address] Dr. Stephan Tavares MCV (RBC) [Entitic vol] 88.0 fL Normal 81.0-99.0 [facility] Comment on above: Performed By: #### G RUBIN, LIPID #### [facility] [address] [place] [address] Dr. Stephan Tavares MONO # 0.4 103/ul Normal 0.3-0.8 [facility] Comment on above: Performed By: #### G RUBIN, LIPID #### [facility] [address] [place] [address] Dr. Stephan Tavares Monocytes/100 WBC (Bld) 6.6 % Normal 1.7-12.0 [facility] Comment on above: Performed By: #### G RUBIN, LIPID #### [facility] [address] [place] [address] Dr. Stephan Tavares NEUT # 3.2 103/ul Normal 1.4-6.5 [facility] Comment on above: Performed By: #### G RUBIN, LIPID #### [facility] [address] [address] [address] Stephan Tavares Neutrophils/100 WBC (Bld) 57.6 % Normal 43.0-75.0 [facility] Comment on above: Performed By: #### G RUBIN, LIPID #### [facility] [address] [address] [address] Stephan Tavares Platelet mean volume (Bld) [Entitic vol] 10.6 fL Normal 9.5-13.5 [facility] Comment on above: Performed By: #### G RUBIN, LIPID #### [facility] [address] [place] [address] Dr. Stephan Tavares PLT 249 103/ul Normal 150-450 [facility] Comment on above: Performed By: #### G RUBIN, LIPID #### [facility] [address] [place] [address] Dr. Stephan Tavares RBC 4.26 106/ul Normal 4.20-5.40 [facility] Comment on above: Performed By: #### G RUBIN, LIPID #### [facility] [address] [place] [address] Dr. Stephan Tavares WBC 5.6 103/ul Normal 4.0-11.0 [facility] Comment on above: Performed By: #### G RUBIN, LIPID #### [facility] [address] [place] [address] Dr. Stephan Tavares FREE T3on 10-27-2021 FREE T3 3.25 pg/mlL Normal 2.18-3.98 [facility] Comment on above: Performed By: #### G RUBIN, LIPID #### [facility] [address] [place] [address] Dr. Stephan Tavares FREE T4on 10-27-2021 Free T4 [Mass/Vol] 1.45 ng/dL Normal 0.76-1.46 [facility] Comment on above: Performed By: #### G RUBIN, LIPID #### [facility] [address] [place] [address] Dr. Stephan Tavares PROF CHEM 8 (BAS METB)on Anion gap [Moles/Vol] 13.1 mmol/L Normal [facility] Comment on above: Performed By: #### T SH, FT3, BMP #### [facility] [address] [place] [address] Dr. Stephan Tavares Calcium [Mass/Vol] 8.7 mg/dL Normal 8.5-10.1 [facility] Comment on above: Performed By: #### T SH, FT3, BMP #### [facility] [address] [place] [address] Dr. Stephan Tavares Chloride [Moles/Vol] 104 mmol/L Normal 98-107 [facility] Comment on above: Performed By: #### T SH, FT3, BMP #### [facility] [address] [place] [address] Dr. Stephan Tavares CO2 [Moles/Vol] 25.3 mmol/L Normal 21.0-32.0 [facility] Comment on above: Performed By: #### T SH, FT3, BMP #### [facility] [address] [place] [address] Dr. Stephan Tavares Creatinine [Mass/Vol] 0.69 mg/dL Normal 0.55-1.02 [facility] Comment on above: Performed By: #### T SH, FT3, BMP #### [facility] [address] [place] [address] Dr. Stephan Tavares EGFR-AF NAMIBIAN >60 Normal >=60 [facility] Comment on above: Performed By: #### T SH, FT3, BMP #### [facility] [address] [place] [address] Dr. Stephan Tavares EGFR-NON AF NAMIBIAN >60 Normal >=60 [facility] Comment on above: Performed By: #### T SH, FT3, BMP #### [facility] [address] [place] [address] Dr. Stephan Tavares Glucose [Mass/Vol] 87 mg/dL Normal 74-106 [facility] Comment on above: Performed By: #### T SH, FT3, BMP #### [facility] [address] [address] [address] Stephan Tavares Potassium [Moles/Vol] 3.4 mmol/L Critically low 3.5-5.1 [facility] Comment on above: Performed By: #### T SH, FT3, BMP #### [facility] [address] [place] [address] Dr. Stephan Tavares Sodium [Moles/Vol] 139 mmol/L Normal 136-145 [facility] Comment on above: Performed By: #### T JENI, FT3, BMP #### [facility] [address] [place] [address] Dr. Stephan Tavares Urea nitrogen [Mass/Vol] 9.0 mg/dL Normal 7.0-18.0 [facility] Comment on above: Performed By: #### T JENI, FT3, BMP #### [facility] [address] [place] [address] Dr. Stephan Tavares Urea nitrogen/Creatinine [Mass ratio] 13.0 mg/mg Normal [facility] Comment on above: Performed By: #### T JENI, FT3, BMP #### [facility] [address] [place] [address] Dr. Stephan Tavares TSHon 10-27-2021 TSH Qn m[IU]/L Critically low 0.358-3.740 [facility] Comment on above: Performed By: #### G RUBIN, LIPID #### [facility] [address] [place] [address] SINUSES WO CONon [...] by: ALVERTO PHAM Date: 2021-10-06 06:19 Normal [facility] Dental Nerve Blockon 022 Pablo Atwood DO 08/30/2021 4:20 AM Dental Nerve Block Date/Time: 08/30/2021 4:19 AM Performed by: Pablo Atwood DO Authorized by: Pablo Atwood DO Consent: Consent obtained: Verbal Consent given by: Patient Risks, benefits, and alternatives were discussed: yes [place] protocol: Patient identity confirmed: Verbally with patient Indications: Indications: dental pain Location: Block type: Posterior superior alveolar Laterality: Left Procedure details: Syringe type: Controlled syringe Needle gauge: 27 G Anesthetic injected: Bupivacaine 0.5% WITH epi Post-procedure details: Outcome: Anesthesia achieved Procedure completion: Tolerated well, no immediate complications [facility] [employer] Work Phone: [facility] [employer] Phone: GLUCOSE BLOODon 08-21-2021 Glucose [Mass/Vol] 79 mg/dL Normal 74-106 [facility] Comment on above: Performed By: #### G RUBIN, LIPID #### [facility] [address] [address] [address] Stephan Tavares LIPID PROFILEon 08-21-2021 CHOL-HDL RATIO NORM SEE BELOW Normal [facility] Comment on above: Result Comment: 3.3 - 4.4 LOW RISK 4.4 - 7.1 AVERAGE RISK 7.1 - 11.0 MODERATE RISK >11.0 HIGH RISK Performed By: #### G RUBIN, LIPID #### [facility] [address] [place] [address] Dr. Stephan Tavares Cholesterol [Mass/Vol] 163 mg/dL Normal <=200 [facility] Comment on above: Performed By: #### G RUBIN, LIPID #### [facility] [address] [address] [address] Stephan Tavares Cholesterol in HDL [Mass/Vol] 71 mg/dL Critically high 40-60 [facility] Comment on above: Performed By: #### G RUBIN, LIPID #### [facility] [address] [place] [address] Dr. Stephan Tavares Cholesterol in LDL [Mass/Vol] 67.8 mg/dL Normal [facility] Comment on above: Performed By: #### G RUBIN, LIPID #### [facility] [address] [place] [address] Dr. Stephan Tavares Cholesterol.total/C holesterol in HDL [Mass ratio] 2.3 {ratio} Normal [facility] Comment on above: Performed By: #### G RUBIN, LIPID #### [facility] [address] [place] [address] Dr. Stephan Tavares HDL NORMAL > or = 60 mg/dl - LOW CARDIOVASCULAR RISK <40 mg/dl - HIGH CARDIOVASCULAR RISK Normal [facility] Comment on above: Performed By: #### G RUBIN, LIPID #### [facility] [address] [place] [address] Dr. Stephan Tavares LDL CALC NORMAL SEE BELOW Normal [facility] Comment on above: Result Comment: <100 mg/dl OPTIMAL 100 - 129 mg/dl NEAR OR ABOVE OPTIMAL 130 - 159 mg/dl BORDERLINE HIGH 160 - 189 mg/dl HIGH >190 mg/dl VERY HIGH Performed By: #### G RUIBN, LIPID #### [facility] [address] [place] [address] Dr. Stephan Tavares Triglyceride [Mass/Vol] 121 mg/dL Normal <=150 [facility] Comment on above: Performed By: #### G RUBIN, LIPID #### [facility] [address] [place], [place] [address] Dr. Stephan Tavares VLDL CALC 24.2 mg/dL Normal [facility] Comment on above: Performed By: #### G RUBIN, LIPID #### [facility] [address] [place], [place] [address] Dr. Stephan Tavares US SINGLE QUAD RT [...] by: ALVERTO PHAM Date: 2021-08-21 17:24 Normal [facility] XR SINUSES 3 VIEWS OR [...] by: ALVERTO PHAM Date: 2021-08-20 13:05 Normal [facility] Glucose - FINGER STICKon Glucose [Mass/Vol] 84 mg/dL [facility] Other VAGINITIS/VAGINOSIS DNA PROB Ryder 08-01-2021 Alea species Positive Abnormal Negative [facility] Comment on above: Performed By: #### G RUBIN, LIPID #### [facility] [address] [place] [address] [address] Stephan Tavares Gardnerella vaginalis Negative Normal Negative [facility] Comment on above: Performed By: #### G RUBIN, LIPID #### [facility] [address] [address] [address] Stephan Tavares Trichomonas vaginalis Negative Normal Negative [facility] Comment on above: Performed By: #### G RUBIN, LIPID #### [facility] [address] [address] [address] Stephan Tavares APTTon 07-27-2021 aPTT Coag (Bld) [Time] 30.9 s [facility] Comment on above: IV Heparin Therapy Range: 62.0-94.0 CBC with Auto Differentialon 07-27-2021 Absolute Eos # 0.06 [facility] Absolute Immature Granulocyte <0.03 [facility] Absolute Lymph # 1.49 [facility] Absolute Vermilion # 0.27 [facility] Basophils (Bld) [#/Vol] 0.04 10*3/uL [facility] Basophils/100 WBC (Bld) 1 % 0 - 2 % [facility] Eosinophils/100 WBC (Bld) 1 % 1 - 4 % [facility] Hematocrit (Bld) [Volume fraction] 38.8 % 36.3 - 47.1 % [facility] Hemoglobin (Bld) [Mass/Vol] 12.7 g/dL 11.9 - 15.1 g/dL [facility] Immature granulocytes/100 WBC (Bld) 0 % 0 [facility] Interpretation and review of laboratory results Abnormal [facility] Lymphocytes/100 WBC (Bld) 36 % 24 - 43 % [facility] MCH (RBC) [Entitic mass] 28.9 pg 25.2 - 33.5 pg [facility] MCHC (RBC) [Mass/Vol] 32.7 g/dL 28.4 - 34.8 g/dL [facility] MCV (RBC) [Entitic vol] 88.4 fL 82.6 - 102.9 fL [facility] Monocytes/100 WBC (Bld) 6 % 3 - 12 % [facility] NRBC Automated 0.0 0.0 per 100 WBC [facility] Platelet distribution width (Bld) [Ratio] 14.5 % High 11.8 - 14.4 % [facility] Platelet mean volume (Bld) [Entitic vol] 10.8 fL 8.1 - 13.5 fL [facility] Platelets (Bld) [#/Vol] 251 10*3/uL [facility] RBC (Bld) [#/Vol] 4.39 10*6/uL 3.95 - 5.11 m/uL [facility] Segmented neutrophils/100 WBC (Bld) 56 % 36 - 65 % [facility] Segs Absolute 2.33 [facility] WBC (Bld) [#/Vol] 4.2 10*3/uL [facility] CT ABDOMEN PELVIS W IV CONTR AST [...] unremarkable. There is no acute osseous abnormality. [facility] Devon Moura MD - 07/27/2021 [...] IMPRESSION: No acute abdominal or pelvic abnormality. [employer] Phone: Radiology Study observation (narrative) Interse Phone: CT ABDOMEN PELVIS W IV CONTR AST Additional Contrast? NoneOrdered By: Devon Moura on 07-27-2021 [employer] Phone: Comprehensive Metabolic Pane l w/ Reflex to MGon 07-27-2021 Albumin [Mass/Vol] 4.7 g/dL 3.5 - 5.2 g/dL [facility] Albumin/Globulin [Mass ratio] 1.8 {ratio} [facility] ALP (Bld) [Catalytic activity/Vol] 62 U/L 35 - 104 U/L [facility] ALT [Catalytic activity/Vol] 14 U/L 5 - 33 U/L [facility] Anion gap [Moles/Vol] 11 mmol/L 9 - 17 mmol/L [facility] AST [Catalytic activity/Vol] 18 U/L <32 [facility] Bilirubin [Mass/Vol] 0.52 mg/dL 0.3 - 1.2 mg/dL [facility] Calcium [Mass/Vol] 9.5 mg/dL 8.6 - 10.4 mg/dL [facility] Chloride [Moles/Vol] 101 mmol/L 98 - 107 mmol/L [facility] CO2 [Moles/Vol] 25 mmol/L 20 - 31 mmol/L [facility] Creatinine [Mass/Vol] 0.76 mg/dL 0.50 - 0.90 mg/dL [facility] Free PSA/Total PSA [Mass fraction] 7.3 g/dL 6.4 - 8.3 g/dL [facility] GFR >60 >60 mL/min [facility] GFR Non- >60 >60 mL/min [facility] Glucose [Mass/Vol] 86 mg/dL 70 - 99 mg/dL [facility] Interpretation and review of laboratory results Abnormal [facility] Potassium [Moles/Vol] 4.0 mmol/L 3.7 - 5.3 mmol/L [facility] Sodium [Moles/Vol] 137 mmol/L 135 - 144 mmol/L [facility] Urea nitrogen (BldV) [Mass/Vol] 16 mg/dL 6 - 20 mg/dL [facility] Urea nitrogen/Creatinine (Bld) [Mass ratio] 21 High [facility] Laboratory - Chemistry and C hemistry - challengeon 07-27-2021 GFR/1.73 sq M.predicted MDRD (S/P/Bld) [Vol rate/Area] [facility] Comment on above: Average GFR for 30-3 9 years old: 107 mL/min/1.73sq m Chronic Kidney Disease: <60 mL/min/1.73sq m Kidney failure: <15 mL/min/1.73sq m eGFR calculated using average adult body mass. Additional eGFR calculator available at: http://www.OpenNews/multiple_crcl_2012.htm Stage 1: Some kidney damage normal GFR Stage 2: Mild kidney damage GFR 60-89 Stage 3: Moderate kidney damage GFR 30-59 Stage 4: Severe kidney damage GFR 15-29 Stage 5: Severe kidney damage GFR <15 ESRD - chronic treatment by dialysis or transplant Lactic Acidon 07-27-2021 Lactate [Moles/Vol] 1 mmol/L 0.5 - 2.2 mmol/L [facility] Lipaseon 07-27-2021 Lipase [Catalytic activity/Vol] 49 U/L 13 - 60 U/L [facility] Microscopic Urinalysison - [facility] Epithelial Cells UA 0 TO 2 [facility] RBC, UA 0 TO 2 [facility] WBC, UA 0 TO 2 [facility] No Panel Informationon 07-27 [facility] Protime-INRon 07-27-2021 INR Coag (Bld) [Relative time] 1.1 {INR} [facility] Comment on above: Non-therapeutic Range: INR = 0.9-1.2 Therapeutic Range: Moderate Anticoagulant Intensity: INR = 2.0-3.0 High Anticoagulant Intensity: INR = 2.5-3.5 PT Coag (PPP) [Time] 14.2 s [facility] Urinalysis with Reflex to Cu ltureon 07-27-2021 Bilirubin Urine Negative NEGATIVE [facility] [employer] Color, UA Yellow Yellow [facility] Glucose, Ur Negative NEGATIVE [facility] Ketones Ql (U) Negative NEGATIVE [facility] Leukocyte esterase Test strip Ql (U) Negative NEGATIVE [facility] Nitrite, Urine Negative NEGATIVE [facility] pH, UA 7.5 [facility] Protein, UA Negative NEGATIVE [facility] Specific [place], UA 1.010 [facility] Turbidity UA Clear Clear [facility] Urine Hgb Negative NEGATIVE [facility] Urobilinogen, Urine Normal Normal [facility] XR CHEST PORTABLEon 07-28-19 No acute process. [facility] EXAMINATION: ONE XRAY VIEW [...] The osseous structures are without acute process. [facility] Goldie Grande MD - [...] without acute process. IMPRESSION: No acute process. [facility] [employer] Work Phone: Radiology Study observation (narrative) [facility] [employer] Work Phone: XR CHEST PORTABLEOrdered By: Goldie Grande on 07-27-2021 [facility] [employer] Work Phone: XR HIP GENERAL 3V PELV/AP/LA T RIGHTon 06-18-2021 [facility] XR chest 2V*on 03-31-2021 XR chest 2V* [facility] [employer] Other XR chest 2V* [facility] Other XR chest 2V* [address] [facility] [employer] Other XR chest 2V* [facility] [address] [facility] [employer] Other XR chest 2V* XRay Report [facility] Other XR chest 2V* Signed [facility] Other XR chest 2V* Patient: Abbey Garcia MR#: [id number] [employer] [employer] Other XR chest 2V* : 1990 Acct:[id number] [facility] Other XR chest 2V* Age/Sex: 30 / F ADM Date: 03/31/21 [facility] Other XR chest 2V* [facility] Other XR chest 2V* [facility] Dr: [facility] [employer] Other XR chest 2V* Ordering Provider: SHANNA JUNE [facility] [employer] Other XR chest 2V* Date of Service: 03/31/21 [employer] Other XR chest 2V* XR/XR chest 2V*: SOB (shortness of breath) [employer] Other XR chest 2V* Copies to: SHANNA JUNE [facility] [employer] Other XR chest 2V* PA AND LATERAL CHEST: [facility] Other XR chest 2V* CLINICAL HISTORY: Wheezing and shortness of breath [employer] Other XR chest 2V* COMPARISON: 03/05/2020 [employer] Other XR chest 2V* There is no focal parenchymal consolidation, effusion or pneumothorax. The cardiac, hilar and [employer] Other XR chest 2V* mediastinal silhouettes are within normal limits. There is no vascular congestion. The [employer] Other XR chest 2V* visualized bony thorax is intact. [employer] Other XR chest 2V* XR/XR chest 2V* [employer] Other XR chest 2V* IMPRESSION: [employer] Other XR chest 2V* NO ACUTE CARDIOPULMONARY ABNORMALITY. [employer] Other XR chest 2V* Impression dictated by: Maricruz Hutchinson M.D.03/31/2021 11:32 AM [employer] Other XR chest 2V* Dictation Location: RADIO-PC-10 [employer] Other XR chest 2V* Transcribed By: PWS 03/31/21 [facility] [employer] Other XR chest 2V* Dictated By: Maricruz Hutchinson MD 03/31/21 [facility] [employer] Other XR chest 2V* Signed By: [facility] Other XR chest 2V* 03/31/21 1132 [employer] Other Urinalysis - AUTOMATEDon Appearance (U) clear [facility] Other Bilirubin Ql (U) Negative [employer] Other Color (U) yellow [facility] Other Glucose Ql (U) Negative [facility] Other Hemoglobin Ql (U) Negative [employer] Other Ketones Ql (U) Negative [facility] Other Leukocyte esterase Test strip Ql (U) Negative [facility] Other Nitrite Ql (U) Negative [facility] Other pH (U) 7.0 [pH] [facility] Other Protein Ql (U) Negative [facility] Other Specific gravity (U) [Rel density] 1.015 [facility] Other Urobilinogen (U) [Mass/Vol] 0.2 mg/dL [facility] Other XR FINGER RIGHT (MIN 2 VIEWS )Ordered By: Vicky Olmedo on 12-14-2020 No acute osseous abnormality. Clone Phone: EXAMINATION: THREE XRAY VIEWS OF THE RIGHT FINGERS 12/14/2020 3:26 pm COMPARISON: None. HISTORY: ORDERING SYSTEM PROVIDED HISTORY: shut right thumb in car door TECHNOLOGIST PROVIDED HISTORY: shut right thumb in car door FINDINGS: There is no evidence of acute fracture. There is normal alignment. No acute joint abnormality. No focal osseous lesion. No focal soft tissue abnormality. Clone Phone: Yusuf, pn Incoming Radiant Results From [employer] KKs - 12/14/2020 3:33 PM EDT EXAMINATION: THREE [...] tissue abnormality. IMPRESSION: No acute osseous abnormality. Clone Phone: Clone Phone: CBC, EDIF, PLATELETOrdered B y: Juanito Laird on 07-02-2020 ABSOLUTE BASOPHIL COUNT 0.0 10*3/uL 0.0 - 0.2 10*3/uL [facility] Basophils/100 WBC (Bld) 0.6 % 0.0 - 2.0 % [facility] Differential cell count method Nom (Bld) AUTO DIFF % [facility] Eosinophils (Bld) [#/Vol] 0.10 10*3/uL 0.0 - 0.7 10*3/uL [facility] Eosinophils/100 WBC (Bld) 1.3 % 0.0 - 11.0 % [facility] Erythrocyte distribution width (RBC) [Ratio] 14.1 % 11.5 - 14.5 % [facility] Hematocrit (Bld) [Volume fraction] 36.2 % 36.0 - 48.0 % [facility] Hemoglobin (Bld) [Mass/Vol] 12.1 g/dL [facility] Lymphocytes (Bld) [#/Vol] 1.70 10*3/uL 1.2 - 3.4 10*3/uL [facility] Lymphocytes/100 WBC (Bld) 23.4 % 20.0 - 55.0 % [facility] MCH (RBC) [Entitic mass] 28.1 pg 26.0 - 35.[address] [facility] MCHC (RBC) [Mass/Vol] 33.4 g/dL [facility] MCV (RBC) [Entitic vol] 84.[address] [facility] Monocytes (Bld) [#/Vol] 0.5 10*3/uL 0.0 - 0.7 10*3/uL [facility] Monocytes/100 WBC (Bld) 6.4 % 0.0 - 10.0 % [facility] Neutrophils (Bld) [#/Vol] 5.0 10*3/uL 1.4 - 6.5 10*3/uL [facility] Neutrophils/100 WBC (Bld) 68.3 % 37.0 - 75.0 % [facility] Platelet mean volume (Bld) [Entitic vol] 8.[address] [facility] Platelets (Bld) [#/Vol] 295 10*3/uL 130.0 - 400.0 10*3/uL [facility] RBC (Bld) [#/Vol] 4.31 10*6/uL 4.0 - 5.4 10*6/u L [facility] WBC (Bld) [#/Vol] 7.3 10*3/uL 3.6 - 11.0 10*3/u L [facility] COMPREHENSIVE METABOLIC PANE LOrdered By: Juanito Laird on 07-02-2020 Albumin [Mass/Vol] 4.1 G/dl 3.5 - 5.0 G/dl [facility] Albumin/Globulin [Mass ratio] 1.3 {ratio} [facility] ALP [Catalytic activity/Vol] 52 U/L [facility] ALT [Catalytic activity/Vol] 16 U/L [facility] AST [Catalytic activity/Vol] 29 U/L [facility] Bilirubin [Mass/Vol] 0.5 mg/dL [facility] Calcium [Mass/Vol] 9.2 mg/dL [facility] Chloride [Moles/Vol] 102 mmol/L [facility] CO2 [Moles/Vol] 22 mmol/L [facility] Creatinine [Mass/Vol] 0.59 mg/dL [facility] GFR COMMENT Average GFR for 30-39 years old = 109. [facility] Comment on above: Chronic Kidney disea se, GFR = <60. Kidney failure, GFR = <15. The GFR estimate is not adjusted for extreme body surface area or acute process, nor has it been validated for women or ethnic groups other than and . GFR/1.73 sq M.predicted among blacks MDRD (S/P/Bld) [Vol rate/Area] mL/min/{1.73_m2} ml/min/1.73sq.m [facility] GFR/1.73 sq M.predicted among non-blacks MDRD (S/P/Bld) [Vol rate/Area] mL/min/{1.73_m2} ml/min/1.73sq.m [facility] Glucose post fast [Mass/Vol] 84 mg/dL [facility] Comment on above: NORMAL <100 mg/dL PREDIABETES 101-126 mg/dL DIABETES 126 mg/dL or higher Interpretation and review of laboratory results Abnormal [facility] Potassium [Moles/Vol] 4.1 mmol/L [facility] Protein [Mass/Vol] 7.3 g/dL [facility] Sodium [Moles/Vol] 134 mmol/L [facility] Urea nitrogen [Mass/Vol] 15 mg/dL [facility] CT ABDOMEN/PELVIS WITHOUT CO NTRASTOrdered By: Juanito Laird on 07-02-2020 IMPRESSION: CT abdomen and CT pelvis studies demonstrate findings compatible with hepatic cysts as described, similar to prior study. Finding is compatible with complex right adnexal cyst as noted. Correlate for mild gastroenteritis. [facility] EXAMINATION: CT ABDOMEN/PELVIS WITHOUT CONTRAST HISTORY: Abdominal [...] bowel content. Bony structures are grossly intact. [facility] User, Interfaces - 07/02/2020 2:22 PM EDT [...] cyst as noted. Correlate for mild gastroenteritis. [facility] HCG ( test) Ql (U)O rdered By: Vaughn Ceja on 07-02-[address] [facility] HCG QUALITATIVE, URINEOrdere d By: Vaughn Ceja on 07-02-2020 HCG ( test) Ql (U) Negative NEGATIVE [facility] LACTATE, BLOODOrdered By: Catherine Laird on 07-02-2020 Lactate [Moles/Vol] 1.0 mmol/L [facility] LIPASEOrdered By: Juanito rosen on 07-02-2020 Lipase [Catalytic activity/Vol] 32 U/L 23 - 300 U/L [facility] No Panel InformationOrdered By: Juanito Laird on 07-02-[address] [facility] PROTIME-INROrdered By: Gautam Laird on 07-02-2020 INR Coag (PPP) [Relative time] 0.95 {INR} [facility] Comment on above: 2.0-3.0 THERAPEUTIC RANGE 2.5-3.5 MECHANICAL VALVE RANGE PT Coag (PPP) [Time] 12.9 s [facility] TYPE AND SCREEN - POSSIBLE T RANSFUSIONOrdered By: Juanito Laird on 07-02-2020 ABO and Rh group Nom (Bld ) Positive [facility] ARM BAND NUMBER [id number] [facility] Blood group antibody screen Ql Negative [facility] EXPIRATION DATE 07/05/2020,2359 [facility] URINALYSIS, MACROOrdered By: Vaughn Ceja on 07-02-2020 Bilirubin Ql (U) Negative NEGATIVE [facility] Clarity (U) SLIGHTLY CLOUDY Abnormal CLEAR [facility] Color (U) PINK Abnormal YELLOW [facility] Glucose Test strip (U) [Mass/Vol] Negative NEGATIVE mg/dl [facility] Hemoglobin Ql (U) LARGE Abnormal NEGATIVE [facility] Interpretation and review of laboratory results Abnormal [facility] Ketones (U) [Mass/Vol] Negative NEGATIVE mg/dl [facility] Leukocyte esterase Test strip Ql (U) TRACE Abnormal NEGATIVE [facility] Nitrite Ql (U) Negative NEGATIVE [facility] [place] [facility] pH (U) 5.5 [pH] [facility] Protein Ql (U) 100 mg/dl Abnormal NEGATIVE [facility] [place] [facility] Specific gravity (U) [Rel density] <1.[address] [facility] Urobilinogen (U) [Mass/Vol] 0.2 mg/dL [facility] URINE MICROSCOPICOrdered By: Vaughn Ceja on 07-02-2020 Bacteria LM.HPF (Urine sed) [#/Area] TRACE Abnormal NEGATIVE [facility] Casts LM.LPF (Urine sed) [#/Area] NONE NONE /LPF [facility] Crystals LM Nom (Urine sed) NONE NONE [facility] Epithelial cells LM Ql (Urine sed) 10 TO 20 /HPF [facility] Interpretation and review of laboratory results Abnormal [facility] Mucus Ql (Urine sed) Negative NEGATIVE [facility] RBC LM.HPF (Urine sed) [#/Area] TOO NUMEROUS TO COUNT Abnormal NEGATIVE /HPF [facility] Urine sediment comments LM John (Urine sed) POSSIBLY CONTAMINATED SPECIMEN, CULTURE MUST BE ORDERED SEPARATELY IF DEEMED NECESSARY. [facility] WBC LM.HPF (Urine sed) [#/Area] 1 TO 5 NEGATIVE /HPF [facility] US PELVIC WITH TRANSVAGINAL WITH DOPPLEROrdered By: Juanito Laird on 07-02-2020 IMPRESSION: 5.5 cm septated right ovarian cyst No evidence of right ovarian torsion Nonvisualization of the left ovary 4.1 cm myometrial masses, leiomyoma suspected [facility] EXAM: US PELVIC WITH TRANSVAGINAL WITH [...] to patient body habitus and bowel gas [facility] User, Interfaces - 07/02/2020 4:10 PM [...] ovary 4.1 cm myometrial masses, leiomyoma suspected [facility] CBC, EDIF, PLATELETon 2019 ABSOLUTE BASOPHIL COUNT 0.0 10*3/uL 0 - 0.2 10*3/uL [facility] Basophils/100 WBC (Bld) 0.6 % 0 - 2 % [facility] Differential cell count method Nom (Bld) AUTO DIFF % [facility] Eosinophils (Bld) [#/Vol] 0.10 10*3/uL 0 - 0.7 10*3/uL [facility] Eosinophils/100 WBC (Bld) 2.4 % 0 - 11 % [facility] Erythrocyte distribution width (RBC) [Ratio] 15.2 % High 11.5 - 14.5 % [facility] Hematocrit (Bld) [Volume fraction] 39.4 % 36 - 48 % [facility] Hemoglobin (Bld) [Mass/Vol] 12.7 g/dL [facility] Interpretation and review of laboratory results Abnormal [facility] Lymphocytes (Bld) [#/Vol] 1.50 10*3/uL 1.2 - 3.4 10*3/uL [facility] Lymphocytes/100 WBC (Bld) 25.8 % 20 - 55 % [facility] MCH (RBC) [Entitic mass] 28.3 pg 26 - [address] [facility] MCHC (RBC) [Mass/Vol] 32.3 g/dL [facility] MCV (RBC) [Entitic vol] 87.6 fL [facility] Monocytes (Bld) [#/Vol] 0.3 10*3/uL 0 - 0.7 10*3/uL [facility] Monocytes/100 WBC (Bld) 5.6 % 0 - 10 % [facility] Neutrophils (Bld) [#/Vol] 3.7 10*3/uL 1.4 - 6.5 10*3/uL [facility] Neutrophils/100 WBC (Bld) 65.6 % 37 - 75 % [facility] Platelet mean volume (Bld) [Entitic vol] 9.[address] [facility] Platelets (Bld) [#/Vol] 277 10*3/uL 130 - 400 10*3/uL [facility] RBC (Bld) [#/Vol] 4.50 10*6/uL 4 - 5.4 10*6/uL [facility] WBC (Bld) [#/Vol] 5.7 10*3/uL 3.6 - 11 10*3/uL [facility] CHEM 7 (LYTES,BUN,CREA,GLUC) on 01-30-2020 Chloride [Moles/Vol] 106 mmol/L [facility] CO2 [Moles/Vol] 20 mmol/L Low [facility] Creatinine [Mass/Vol] 0.67 mg/dL [facility] GFR/1.73 sq M predicted among blacks MDRD (S/P/Bld) [Vol rate/Area] mL/min/{1.73_m2} ml/min/1.73sq.m [facility] GFR/1.73 sq M predicted among non-blacks MDRD (S/P/Bld) [Vol rate/Area] mL/min/{1.73_m2} ml/min/1.73sq.m [facility] GFR/1.73 sq M predicted among non-blacks MDRD (S/P/Bld) [Vol rate/Area] Average GFR for 30-39 years old = 109. [facility] Comment on above: Chronic Kidney disea se, GFR = <60. Kidney failure, GFR = <15. The GFR estimate is not adjusted for extreme body surface area or acute process, nor has it been validated for women or ethnic groups other than and . Glucose post fast [Mass/Vol] 78 mg/dL [facility] Comment on above: NORMAL <100 mg/dL PREDIABETES 101-126 mg/dL DIABETES 126 mg/dL or higher Interpretation and review of laboratory results Abnormal [facility] Potassium [Moles/Vol] 3.8 mmol/L [facility] Sodium [Moles/Vol] 138 mmol/L [facility] Urea nitrogen [Mass/Vol] 8 mg/dL [facility] CT ABDOMEN/PELVIS WITH CONTR Daljit 01-30-2020 [...] unchanged. 4. Prior cholecystectomy and appendectomy. 2 [facility] EXAMINATION: CT ABDOMEN/PELVIS WITH CONTRAST HISTORY: [...] osseous lesions. No compression fracture is identified. [facility] IMPRESSION: 1. Scattered fluid throughout nondilated small bowel may correlate with enteritis or mild ileus pattern. No bowel obstruction. 2. Left ovarian cyst measures 4.7 cm. Pelvic ultrasound could be considered, if clinical symptoms warrant. 3. Hepatic cysts, unchanged. 4. Prior cholecystectomy and appendectomy. 2 [facility] HCG QUALITATIVE, URINEon HCG ( test) Ql (U) Negative NEGATIVE [facility] HEPATIC FUNCTION PANELon Albumin [Mass/Vol] 4.6 g/dL [facility] ALP [Catalytic activity/Vol] 52 U/L [facility] ALT [Catalytic activity/Vol] 18 U/L [facility] AST [Catalytic activity/Vol] 31 U/L [facility] Bilirubin [Mass/Vol] 0.5 mg/dL [facility] Bilirubin.direct [Mass/Vol] 0.0 mg/dL [facility] Protein [Mass/Vol] 7.7 g/dL [facility] LIPASEon 01-30-2020 Lipase [Catalytic activity/Vol] 33 U/L 23 - 300 U/L [facility] URINALYSIS, MACROon 01-30-20 20 Bilirubin Ql (U) Negative NEGATIVE [facility] Clarity (U) CLEAR CLEAR [facility] Color (U) YELLOW YELLOW [facility] Glucose Test strip (U) [Mass/Vol] Negative NEGATIVE mg/dl [facility] Hemoglobin Ql (U) Negative NEGATIVE [facility] Interpretation and review of laboratory results Abnormal [facility] Ketones (U) [Mass/Vol] Negative NEGATIVE mg/dl [facility] Leukocyte esterase Test strip Ql (U) Negative NEGATIVE [facility] Nitrite Ql (U) Negative NEGATIVE [facility] pH (U) 7.5 [pH] High [facility] Protein Ql (U) Negative NEGATIVE mg/dl [facility] Specific gravity (U) [Rel density] 1.015 [facility] Urobilinogen (U) [Mass/Vol] 0.2 [facility] Vital Signs Date Time Vital Sign Value Performing Clinician Facility 09-08-2023 11:15 Body height 167.6 cm Kasie Avalos MD Work Phone: [facility] 09-08-2023 11:15-0400 Body mass index (BMI) [Ratio] 28.34 kg/m2 Kasie Avalos MD Work Phone: [facility] 09-08-2023 [id number] Body temperature 97.3 [degF] Kasie Avalos MD Work Phone: [facility] 09-08-2023 [id number] Body weight 79.65 kg Kasie Avalos MD Work Phone: [facility] 09-08-2023 11:15-0400 Diastolic blood pressure 82 mm[Hg] Kasie Avalos MD Work Phone: [facility] 09-08-2023 11:15-0400 Heart rate 74 /min Kasie Avalos MD Work Phone: [facility] 09-08-2023 11:15-0400 SaO2% (BldA) [Mass fraction] 100 % Kasie Avalos MD Work Phone: [facility] 09-08-2023 11:15-0400 Systolic blood pressure 118 mm[Hg] Kasie Avalos MD Work Phone: [facility] 08-26-2023 16:30-0400 Diastolic blood pressure 53 mm[Hg] Britt Cross MD Work Phone: [facility] 08-26-2023 16:30-0400 Heart rate 62 /min Britt Cross MD Work Phone: [facility] 08-26-2023 16:30-0400 Respiratory rate 16 /min Britt Cross MD Work Phone: [facility] 08-26-2023 16:30-0400 SaO2% (BldA) [Mass fraction] 98 % Britt Cross MD Work Phone: [facility] 08-26-2023 16:30-0400 Systolic blood pressure 104 mm[Hg] Britt Cross MD Work Phone: [facility] 08-26-2023 15:19-0400 Body height 167.6 cm Britt Cross MD Work Phone: [facility] 08-26-2023 15:19-0400 Body mass index (BMI) [Ratio] 28.25 kg/m2 Britt Cross MD Work Phone: [facility] 08-26-2023 15:19-0400 Body temperature 98.1 [degF] Britt Cross MD Work Phone: [facility] 08-26-2023 15:19-0400 Body weight 79.38 kg Britt Cross MD Work Phone: [facility] 08-21-2023 12:56-0400 Diastolic blood pressure 55 mm[Hg] FOLLOW UP MANAGER-C Jaquan Cristhian Work Phone: [facility] 08-21-2023 12:56-0400 Heart rate 72 /min FOLLOW UP MANAGER-C Jaquan Cristhian Work Phone: [facility] 08-21-2023 12:56-0400 Respiratory rate 18 /min FOLLOW UP MANAGER-C Jaquan Cristhian Work Phone: [facility] 08-21-2023 12:56-0400 SaO2% (BldA) [Mass fraction] 98 % FOLLOW UP MANAGER-C Jaquan Cristhian Work Phone: [facility] 08-21-2023 12:56-0400 Systolic blood pressure 103 mm[Hg] FOLLOW UP MANAGER-C Jaquan Cristhian Work Phone: [facility] 08-21-2023 08:54-0400 Body height 168.91 cm FOLLOW UP MANAGER-C Jaquan Cristhian Work Phone: [facility] 08-21-2023 08:54-0400 Body weight 79 kg FOLLOW UP MANAGER-C Jaquan Cristhian Work Phone: [facility] 08-21-2023 08:48-0400 Body temperature 97.9 [degF] FOLLOW UP MANAGER-C Jaquan Cristhian Work Phone: [facility] 08-14-2023 18:07-0400 Diastolic blood pressure 74 mm[Hg] FOLLOW UP MANAGER-C Jaquan Cristhian Work Phone: [facility] 08-14-2023 18:07-0400 Heart rate 66 /min FOLLOW UP MANAGER-C Jaquan Cristhian Work Phone: [facility] 08-14-2023 18:07-0400 Respiratory rate 18 /min FOLLOW UP MANAGER-C Jaquan Cristhian Work Phone: [facility] 08-14-2023 18:07-0400 SaO2% (BldA) [Mass fraction] 99 % FOLLOW UP MANAGER-C Jaquan Cristhian Work Phone: [facility] 08-14-2023 18:07-0400 Systolic blood pressure 110 mm[Hg] FOLLOW UP MANAGER-C Jaquan Cristhian Work Phone: [facility] 08-14-2023 16:17-0400 Body height 167.64 cm FOLLOW UP MANAGER-C Jaquan Cristhian Work Phone: [facility] 08-14-2023 16:17-0400 Body temperature 97.5 [degF] FOLLOW UP MANAGER-C Jaquan Cristhian Work Phone: [facility] 08-14-2023 16:17-0400 Body weight 78.92 kg FOLLOW UP MANAGER-C Jaquan Cristhian Work Phone: [facility] 08-09-2023 13:51-0400 Diastolic blood pressure 79 mm[Hg] Vic Ramos MD Work Phone: [facility] 08-09-2023 13:51-0400 Heart rate 76 /min Vic Ramos MD Work Phone: [facility] 08-09-2023 13:51-0400 Systolic blood pressure 113 mm[Hg] Vic Ramos MD Work Phone: [facility] 08-04-2023 08:23-0400 Body mass index (BMI) [Ratio] 29.21 kg/m2 Boogie Murguia MD Work Phone: [facility] 08-04-2023 08:23-0400 Body weight 82.1 kg Boogie Murguia MD Work Phone: [facility] 07-31-2023 13:21-0400 Diastolic blood pressure 55 mm[Hg] FOLLOW UP MANAGER-C Jaquan Cristhian Work Phone: [facility] 07-31-2023 13:21-0400 Heart rate 64 /min FOLLOW UP MANAGER-C Jaquan Cristhian Work Phone: [facility] 07-31-2023 13:21-0400 Respiratory rate 18 /min FOLLOW UP MANAGER-C Jaquan Cristhian Work Phone: [facility] 07-31-2023 13:21-0400 SaO2% (BldA) [Mass fraction] 97 % FOLLOW UP MANAGER-C Jaquan Cristhian Work Phone: [facility] 07-31-2023 13:21-0400 Systolic blood pressure 104 mm[Hg] FOLLOW UP MANAGER-C Jaquan Cristhian Work Phone: [facility] 07-31-2023 10:21-0400 Body height 168.91 cm FOLLOW UP MANAGER-C Jaquan Cristhian Work Phone: [facility] 07-31-2023 10:21-0400 Body temperature 98.2 [degF] FOLLOW UP MANAGER-C Jaquan Cristhian Work Phone: [facility] 07-31-2023 10:21-0400 Body weight 79 kg FOLLOW UP MANAGER-C Jaquan Cristhian Work Phone: [facility] 07-17-2023 21:45-0400 Body temperature 98.2 [degF] FOLLOW UP MANAGER-C Jaquan Cristhian Work Phone: [facility] 07-17-2023 21:45-0400 Diastolic blood pressure 73 mm[Hg] FOLLOW UP MANAGER-C Jaquan Cristhian Work Phone: [facility] 07-17-2023 21:45-0400 Heart rate 66 /min FOLLOW UP MANAGER-C Jaquan Cristhian Work Phone: [facility] 07-17-2023 21:45-0400 Respiratory rate 16 /min FOLLOW UP MANAGER-C Jaquan Cristhian Work Phone: [facility] 07-17-2023 21:45-0400 SaO2% (BldA) [Mass fraction] 97 % FOLLOW UP MANAGER-C Jaquan Cristhian Work Phone: [facility] 07-17-2023 21:45-0400 Systolic blood pressure 108 mm[Hg] FOLLOW UP MANAGER-C Jaquan Cristhian Work Phone: [facility] 07-17-2023 12:39-0400 Body height 167.64 cm FOLLOW UP MANAGER-C Jaquan Cristhian Work Phone: [facility] 07-17-2023 08:45-0400 Body weight 79.5 kg FOLLOW UP MANAGER-C Jaquan Cristhian Work Phone: [facility] 07-17-2023 07:30-0400 Diastolic blood pressure 53 mm[Hg] FOLLOW UP MANAGER-C Jaquan Cristhian Work Phone: [facility] 07-17-2023 07:30-0400 Heart rate 62 /min FOLLOW UP MANAGER-C Jaquan Cristhian Work Phone: [facility] 07-17-2023 07:30-0400 Respiratory rate 16 /min FOLLOW UP MANAGER-C Jaquan Cristhian Work Phone: [facility] 07-17-2023 07:30-0400 SaO2% (BldA) [Mass fraction] 96 % FOLLOW UP MANAGER-C Jaquan Cristhian Work Phone: [facility] 07-17-2023 07:30-0400 Systolic blood pressure 106 mm[Hg] FOLLOW UP MANAGER-C Jaquan Cristhian Work Phone: [facility] 07-16-2023 14:44-0400 Body height 167.64 cm FOLLOW UP MANAGER-C Jaquan Cristhian Work Phone: [facility] 07-16-2023 14:44-0400 Body temperature 97.6 [degF] FOLLOW UP MANAGER-C Jaquan Cristhian Work Phone: [facility] 07-16-2023 14:44-0400 Body weight 79.95 kg FOLLOW UP MANAGER-C Jaquan Cristhian Work Phone: [facility] 07-03-2023 07:00-0400 Body temperature 98.6 [degF] David Valadez DO Work Phone: [facility] 07-03-2023 07:00-0400 Diastolic blood pressure 57 mm[Hg] David Wodrich DO Work Phone: [facility] 07-03-2023 07:00-0400 Heart rate 105 /min David Wodrich DO Work Phone: [facility] 07-03-2023 07:00-0400 Respiratory rate 18 /min David Wodrich DO Work Phone: [facility] 07-03-2023 07:00-0400 SaO2% (BldA) [Mass fraction] 100 % David Wodrich DO Work Phone: [facility] 07-03-2023 07:00-0400 Systolic blood pressure 99 mm[Hg] David Wodrich DO Work Phone: [facility] 06-29-2023 18:16-0400 Body height 167.6 cm David Wodrich DO Work Phone: [facility] 06-29-2023 18:16-0400 Body mass index (BMI) [Ratio] 27.12 kg/m2 David Wodrich DO Work Phone: [facility] 06-29-2023 18:16-0400 Body weight 76.2 kg David Wodrich DO Work Phone: [facility] 06-22-2023 11:14-0400 Body height 167.6 cm Sherry Magaña MD Work Phone: [facility] 06-22-2023 11:14-0400 Body mass index (BMI) [Ratio] 27.12 kg/m2 Sherry Magaña MD Work Phone: [facility] 06-22-2023 11:14-0400 Body weight 76.2 kg Sherry Magaña MD Work Phone: [facility] 06-18-2023 09:35-0400 Body height 167.6 cm Breanna Stern APRN.CNP Work Phone: [place] [address]-03-2024 09:35-0400 Body mass index (BMI) [Ratio] 27.29 kg/m2 Breanna Stern APRN.RADIOCOMMUNICATIONS TECHNICIAN Work Phone: [facility] 06-18-2023 09:35-0400 Body temperature 98.01 [degF] Breanna Stern APRN.RADIOCOMMUNICATIONS TECHNICIAN Work Phone: [facility] 06-18-2023 09:35-0400 Body weight 76.66 kg Breanna Stern APRN.RADIOCOMMUNICATIONS TECHNICIAN Work Phone: [facility] 06-18-2023 09:35-0400 Diastolic blood pressure 82 mm[Hg] Breanna Stern APRN.RADIOCOMMUNICATIONS TECHNICIAN Work Phone: [facility] 06-18-2023 09:35-0400 Heart rate 78 /min Breanna Stern APRN.RADIOCOMMUNICATIONS TECHNICIAN Work Phone: [facility] 06-18-2023 09:35-0400 SaO2% (BldA) [Mass fraction] 100 % Breanna Stern APRN.RADIOCOMMUNICATIONS TECHNICIAN Work Phone: [facility] 06-18-2023 09:35-0400 Systolic blood pressure 142 mm[Hg] Breanna Stern APRN.RADIOCOMMUNICATIONS TECHNICIAN Work Phone: [facility] 05-31-2023 00:53-0400 Diastolic blood pressure 82 mm[Hg] FOLLOW UP MANAGER-C Jaquan Cristhian Work Phone: [facility] 05-31-2023 00:53-0400 Heart rate 51 /min FOLLOW UP MANAGER-C Jaquan Cristhian Work Phone: [facility] 05-31-2023 00:53-0400 Respiratory rate 18 /min FOLLOW UP MANAGER-C Jaquan Cristhian Work Phone: [facility] 05-31-2023 00:53-0400 SaO2% (BldA) [Mass fraction] 91 % FOLLOW UP MANAGER-C Jaquan Cristhian Work Phone: [facility] 05-31-2023 00:53-0400 Systolic blood pressure 142 mm[Hg] FOLLOW UP MANAGER-C Jaquan Cristhian Work Phone: [facility] 05-30-2023 15:25-0400 Body height 167.64 cm FOLLOW UP MANAGER-C Jaquan Cristhian Work Phone: [facility] 05-30-2023 15:25-0400 Body temperature 97.7 [degF] FOLLOW UP MANAGER-C Jaquan Cristhian Work Phone: [facility] 05-30-2023 15:25-0400 Body weight 76.65 kg FOLLOW UP MANAGER-C Jaquan Cristhian Work Phone: [facility] 05-17-2023 16:03-0400 Diastolic blood pressure 82 mm[Hg] [facility] 05-17-2023 16:03-0400 Heart rate 72 /min [facility] 05-17-2023 16:03-0400 Mean blood pressure 95 mm[Hg] [facility] 05-17-2023 16:03-0400 Respiratory rate 17 /min [facility] 05-17-2023 16:03-0400 SaO2% (BldA) [Mass fraction] 100 % [facility] 05-17-2023 16:03-0400 Systolic blood pressure 120 mm[Hg] [facility] 05-17-2023 15:30-0400 Diastolic blood pressure 86 mm[Hg] [facility] 05-17-2023 15:30-0400 Heart rate 71 /min [facility] 05-17-2023 15:30-0400 Mean blood pressure 103 mm[Hg] [facility] 05-17-2023 15:30-0400 Respiratory rate 16 /min [facility] 05-17-2023 15:30-0400 SaO2% (BldA) [Mass fraction] 100 % [facility] 05-17-2023 15:30-0400 Systolic blood pressure 136 mm[Hg] [facility] 05-17-2023 15:00-0400 Diastolic blood pressure 78 mm[Hg] [facility] 05-17-2023 15:00-0400 Heart rate 70 /min [facility] 05-17-2023 15:00-0400 Mean blood pressure 97 mm[Hg] [facility] 05-17-2023 15:00-0400 Respiratory rate 15 /min [facility] 05-17-2023 14:16-0400 Body temperature 97.7 [degF] [facility] 05-17-2023 14:16-0400 Heart rate 74 /min [facility] 05-14-2023 13:06-0400 Hourly Rounding [facility]cho Paster [facility] 05-14-2023 13:06-0400 Promise to Return Moncho Paster [facility] 05-14-2023 12:06-0400 Hourly Rounding [facility]cho Paster [facility] 05-14-2023 12:06-0400 Promise to Return Moncho Paster [facility] 05-14-2023 11:32-0400 Hourly Rounding [facility]cho Paster [facility] 05-14-2023 11:32-0400 Promise to Return Moncho Paster [facility] 05-14-2023 10:08-0400 Heart rate 57 /min Moncho Paster [facility] 05-14-2023 10:08-0400 SaO2% (BldA) [Mass fraction] 100 % Moncho Paster [facility] 05-14-2023 10:08-0400 Diastolic blood pressure 80 mm[Hg] Moncho Paster [facility] 05-14-2023 10:08-0400 Mean blood pressure 93 mm[Hg] Moncho Paster [facility] 05-14-2023 10:08-0400 Systolic blood pressure 119 mm[Hg] Moncho Paster [facility] 05-14-2023 10:08-0400 Body temperature 97.34 [degF] Moncho Paster [facility] 05-14-2023 07:32-0400 Heart rate 57 /min Moncho Paster [facility] 05-14-2023 07:32-0400 SaO2% (BldA) [Mass fraction] 100 % Moncho Paster [facility] 05-14-2023 07:32-0400 Diastolic blood pressure 66 mm[Hg] Moncho Paster [facility] 05-14-2023 07:32-0400 Mean blood pressure 77 mm[Hg] Moncho Paster [facility] 05-14-2023 07:32-0400 Systolic blood pressure 100 mm[Hg] Moncho Paster [facility] 05-14-2023 07:31-0400 Body temperature 97.34 [degF] Moncho Paster [facility] 05-14-2023 05:00-0400 Blood Pressure Location [facility] P[facility] 05-14-2023 05:00-0400 Diastolic blood pressure 77 mm[Hg] [facility] P[facility] 05-14-2023 05:00-0400 Mean blood pressure 90 mm[Hg] Moncho Paster [facility] 05-14-2023 05:00-0400 Systolic blood pressure 116 mm[Hg] Moncho Paster [facility] 05-13-2023 23:38-0400 Heart rate 53 /min Moncho Paster [facility] 05-13-2023 23:38-0400 SaO2% (BldA) [Mass fraction] 100 % Moncho Paster [facility] 05-13-2023 23:38-0400 Respiratory rate 16 /min Moncho Paster [facility] 05-13-2023 23:37-0400 Mean blood pressure 92 mm[Hg] Moncho Paster [facility] 05-13-2023 23:00-0400 Blood Pressure Location [facility] P[facility] 05-13-2023 23:00-0400 Body temperature 97.34 [degF] [facility]cho Paster [facility] 05-13-2023 19:33-0400 Body temperature 97.52 [degF] Moncho Paster [facility] 05-13-2023 16:00-0400 Body temperature 98.06 [degF] Moncho Paster [facility] 05-13-2023 11:00-0400 Body temperature 98.24 [degF] Moncho Paster [facility] 05-12-2023 16:17-0400 Blood Pressure Location [facility] P[facility] 05-12-2023 16:00-0400 Respiratory rate 20 /min Moncho Paster [facility] 05-12-2023 15:55-0400 Mean blood pressure 86 mm[Hg] Moncho Paster [facility] 05-12-2023 15:55-0400 Respiratory rate 14 /min Moncho Paster [facility] 05-12-2023 15:50-0400 Mean blood pressure 87 mm[Hg] Moncho Paster [facility] 05-12-2023 15:50-0400 Respiratory rate 18 /min Moncho Paster [facility] 05-12-2023 15:36-0400 Body temperature 97.88 [degF] Moncho Paster [facility] 05-12-2023 15:30-0400 Respiratory rate 12 /min Moncho Paster [facility] 05-12-2023 15:25-0400 Respiratory rate 12 /min Moncho Paster [facility] 05-12-2023 13:19-0400 Heart rate 61 /min Moncho Paster [facility] 05-12-2023 09:32-0400 Heart rate 77 /min Moncho Paster [facility] 05-11-2023 16:43-0400 Diastolic blood pressure 67 mm[Hg] Mateusz Garcia [facility] 05-11-2023 16:43-0400 Heart rate 75 /min Mateusz Garcia [facility] 05-11-2023 16:43-0400 Mean blood pressure 83 mm[Hg] Mateusz Garcia [facility] 05-11-2023 16:43-0400 Respiratory rate 18 /min Mateusz Jose [facility] 05-11-2023 16:43-0400 SaO2% (BldA) [Mass fraction] 100 % Mateusz Garcia [facility] 05-11-2023 16:43-0400 Systolic blood pressure 115 mm[Hg] Mateusz Jose [facility] 05-11-2023 15:00-0400 Diastolic blood pressure 79 mm[Hg] Mateusz Jose [facility] 05-11-2023 15:00-0400 Heart rate 65 /min Mateusz Jose [facility] 05-11-2023 15:00-0400 Mean blood pressure 92 mm[Hg] Mateusz Jose [facility] 05-11-2023 15:00-0400 Systolic blood pressure 118 mm[Hg] Mateusz Jose [facility] 05-11-2023 14:30-0400 Heart rate 69 /min Mateusz Jose [facility] 05-11-2023 14:30-0400 Respiratory rate 18 /min Mateusz Jose [facility] 05-11-2023 14:30-0400 SaO2% (BldA) [Mass fraction] 100 % Mateusz Jose [facility] 05-11-2023 12:00-0400 Body temperature 97.7 [degF] Mateusz Jose [facility] 05-11-2023 12:00-0400 Diastolic blood pressure 83 mm[Hg] Mateusz Jose [facility] 05-11-2023 12:00-0400 Heart rate 73 /min Mateusz Jose [facility] 05-11-2023 12:00-0400 Systolic blood pressure 147 mm[Hg] Mateusz Jose [facility] 05-09-2023 16:20-0400 Diastolic blood pressure 67 mm[Hg] Mateusz Jose [facility] 05-09-2023 16:20-0400 Heart rate 75 /min Mateusz Jose [facility] 05-09-2023 16:20-0400 Mean blood pressure 82 mm[Hg] Mateusz Jose [facility] 05-09-2023 16:20-0400 Respiratory rate 16 /min Mateusz Jose [facility] 05-09-2023 16:20-0400 SaO2% (BldA) [Mass fraction] 97 % Mateusz Jose [facility] 05-09-2023 16:20-0400 Systolic blood pressure 112 mm[Hg] Mateusz Jose [facility] 05-09-2023 15:40-0400 Diastolic blood pressure 69 mm[Hg] Mateusz Jose [facility] 05-09-2023 15:40-0400 Heart rate 69 /min Mateusz Jose [facility] 05-09-2023 15:40-0400 Mean blood pressure 84 mm[Hg] Mateusz Jose [facility] 05-09-2023 15:40-0400 Respiratory rate 18 /min Mateusz Jose [facility] 05-09-2023 15:40-0400 SaO2% (BldA) [Mass fraction] 100 % Mateusz Joes [facility] 05-09-2023 15:40-0400 Systolic blood pressure 113 mm[Hg] Mateusz Jose [facility] 05-09-2023 14:00-0400 Diastolic blood pressure 80 mm[Hg] Mateusz Jose [facility] 05-09-2023 14:00-0400 Heart rate 78 /min Mateusz Jose [facility] 05-09-2023 14:00-0400 Mean blood pressure 96 mm[Hg] Mateusz Jose [facility] 05-09-2023 14:00-0400 Respiratory rate 19 /min Mateusz Jose [facility] 05-09-2023 14:00-0400 Systolic blood pressure 129 mm[Hg] Mateusz Jose [facility] 05-09-2023 11:47-0400 Body temperature 97.7 [degF] Mateusz Jose [facility] 05-09-2023 11:47-0400 Heart rate 107 /min Mateusz Jose [facility] 05-06-2023 21:11-0400 Diastolic blood pressure 61 mm[Hg] Mateusz Jose [facility] 05-06-2023 21:11-0400 Heart rate 55 /min Mateusz Jose [facility] 05-06-2023 21:11-0400 Mean blood pressure 74 mm[Hg] Mateusz Jose [facility] 05-06-2023 21:11-0400 Respiratory rate 16 /min Mateusz Jose [facility] 05-06-2023 21:11-0400 SaO2% (BldA) [Mass fraction] 100 % Mateusz Jose [facility] 05-06-2023 21:11-0400 Systolic blood pressure 100 mm[Hg] Mateusz Jose [facility] 05-06-2023 20:20-0400 Diastolic blood pressure 73 mm[Hg] Mateusz Jose [facility] 05-06-2023 20:20-0400 Heart rate 53 /min Mateusz Jose [facility] 05-06-2023 20:20-0400 Mean blood pressure 89 mm[Hg] Mateusz Jose [facility] 05-06-2023 20:20-0400 Respiratory rate 14 /min Mateusz Jose [facility] 05-06-2023 20:20-0400 SaO2% (BldA) [Mass fraction] 100 % Mateusz Jose [facility] 05-06-2023 20:20-0400 Systolic blood pressure 122 mm[Hg] Mateusz Jose [facility] 05-06-2023 19:30-0400 Diastolic blood pressure 87 mm[Hg] Mateusz Jose [facility] 05-06-2023 19:30-0400 Heart rate 72 /min Mateusz Jose [facility] 05-06-2023 19:30-0400 Mean blood pressure 105 mm[Hg] Mateusz Jose [facility] 05-06-2023 19:30-0400 Respiratory rate 16 /min Mateusz Jose [facility] 05-06-2023 19:30-0400 SaO2% (BldA) [Mass fraction] 100 % Mateusz Jose [facility] 05-06-2023 19:30-0400 Systolic blood pressure 141 mm[Hg] Mateusz Jose [facility] 05-06-2023 15:45-0400 Body temperature 98.78 [degF] Mateusz Jose [facility] 05-06-2023 15:45-0400 Heart rate 66 /min Mateusz Jose [facility] 05-06-2023 15:45-0400 Respiratory rate 18 /min Mateusz Garcia [facility] 04-28-2023 09:49-0400 Body height 167.6 cm Kasie Avalos MD Work Phone: [facility] 04-28-2023 09:49-0400 Body temperature 96.6 [degF] Kasie Avalos MD Work Phone: [facility] 04-28-2023 09:49-0400 Body weight 79.38 kg Kasie vAalos MD Work Phone: [facility] 04-28-2023 09:49-0400 Diastolic blood pressure 75 mm[Hg] Kasie Avalos MD Work Phone: [facility] 04-28-2023 09:49-0400 Heart rate 80 /min Kasie Avalos MD Work Phone: [facility] 04-28-2023 09:49-0400 SaO2% (BldA) [Mass fraction] 100 % Kasie Avalos MD Work Phone: [facility] 04-28-2023 09:49-0400 Systolic blood pressure 106 mm[Hg] Kasie Avalos MD Work Phone: [facility] 04-06-2023 14:00-0500 Diastolic blood pressure 59 mm[Hg] FOLLOW UP MANAGER-C Jaquan Cristhian Work Phone: [facility] 04-06-2023 14:00-0500 Heart rate 59 /min FOLLOW UP MANAGER-C Jaquan Cristhian Work Phone: [facility] 04-06-2023 14:00-0500 Respiratory rate 16 /min FOLLOW UP MANAGER-C Jaquan Cristhian Work Phone: [facility] 04-06-2023 14:00-0500 SaO2% (BldA) [Mass fraction] 98 % FOLLOW UP MANAGER-C Jaquan Cristhian Work Phone: [facility] 04-06-2023 14:00-0500 Systolic blood pressure 113 mm[Hg] FOLLOW UP MANAGER-C Jaquan Cristhian Work Phone: [facility] 04-06-2023 09:47-0500 Body height 167.64 cm FOLLOW UP MANAGER-C Jaquan Cristhian Work Phone: [facility] 04-06-2023 09:47-0500 Body temperature 96.7 [degF] FOLLOW UP MANAGER-C Jaquan Cristhian Work Phone: [facility] 04-06-2023 09:47-0500 Body weight 81.1 kg FOLLOW UP MANAGER-C Jaquan Cristhian Work Phone: [facility] 04-02-2023 17:00-0500 Diastolic blood pressure 63 mm[Hg] [facility] 04-02-2023 17:00-0500 Heart rate 75 /min [facility] 04-02-2023 17:00-0500 Mean blood pressure 80 mm[Hg] [facility] 04-02-2023 17:00-0500 SaO2% (BldA) [Mass fraction] 99 % [facility] 04-02-2023 17:00-0500 Systolic blood pressure 113 mm[Hg] [facility] 04-02-2023 16:00-0500 Diastolic blood pressure 71 mm[Hg] [facility] 04-02-2023 16:00-0500 Heart rate 71 /min [facility] 04-02-2023 16:00-0500 Mean blood pressure 88 mm[Hg] [facility] 04-02-2023 16:00-0500 Respiratory rate 14 /min [facility] 04-02-2023 16:00-0500 SaO2% (BldA) [Mass fraction] 100 % [facility] 04-02-2023 16:00-0500 Systolic blood pressure 123 mm[Hg] [facility] 04-02-2023 15:00-0500 Diastolic blood pressure 55 mm[Hg] [facility] 04-02-2023 15:00-0500 Heart rate 76 /min [facility] 04-02-2023 15:00-0500 Mean blood pressure 73 mm[Hg] [facility] 04-02-2023 15:00-0500 Respiratory rate 17 /min [facility] 04-02-2023 15:00-0500 Systolic blood pressure 109 mm[Hg] [facility] 04-02-2023 10:54-0500 Body temperature 98.6 [degF] [facility] 04-02-2023 10:54-0500 Heart rate 73 /min [facility] 04-02-2023 10:54-0500 Respiratory rate 16 /min [facility] 03-20-2023 08:41-0500 Body temperature 97.5 [degF] Melisa Barker MD Work Phone: [facility] 03-20-2023 08:41-0500 Diastolic blood pressure 74 mm[Hg] Melisa Barker MD Work Phone: [facility] 03-20-2023 08:41-0500 Heart rate 62 /min Melisa Barker MD Work Phone: [phone] [place] [address] 03-20-2023 08:41-0500 Respiratory rate 18 /min Melisa Barker MD Work Phone: [facility] 03-20-2023 08:41-0500 SaO2% (BldA) [Mass fraction] 98 % Melisa Barker MD Work Phone: [facility] 03-20-2023 08:41-0500 Systolic blood pressure 131 mm[Hg] Melisa Barker MD Work Phone: [facility] 03-16-2023 13:47-0500 Body height 167.6 cm Melisa Barker MD Work Phone: [facility] 03-16-2023 13:47-0500 Body mass index (BMI) [Ratio] 32.99 kg/m2 Melisa Barker MD Work Phone: [facility] 03-16-2023 13:47-0500 Body weight 92.7 kg Melisa Barker MD Work Phone: [facility] 03-16-2023 12:00-0500 Diastolic blood pressure 70 mm[Hg] Earnest Johnie [facility] 03-16-2023 12:00-0500 Heart rate 69 /min Earnest Johnie [facility] 03-16-2023 12:00-0500 Mean blood pressure 84 mm[Hg] Earnest Johnie [facility] 03-16-2023 12:00-0500 Systolic blood pressure 113 mm[Hg] Earnest Johnie [facility] 03-16-2023 11:30-0500 Diastolic blood pressure 86 mm[Hg] Earnest Johnie [facility] 03-16-2023 11:30-0500 Heart rate 61 /min Earnest Johnie [facility] 03-16-2023 11:30-0500 Mean blood pressure 102 mm[Hg] Earnest Johnie [facility] 03-16-2023 11:30-0500 Respiratory rate 16 /min Earnest Johnie [facility] 03-16-2023 11:30-0500 Systolic blood pressure 133 mm[Hg] Earnest Johnie [facility] 03-16-2023 11:07-0500 Diastolic blood pressure 83 mm[Hg] Earnest Johnie [facility] 03-16-2023 11:07-0500 Heart rate 63 /min Earnest Blancoe [facility] 03-16-2023 11:07-0500 Mean blood pressure 94 mm[Hg] Earnest Johnie [facility] 03-16-2023 11:07-0500 SaO2% (BldA) [Mass fraction] 100 % Earnest Johnie [facility] 03-16-2023 11:07-0500 Systolic blood pressure 116 mm[Hg] Earnest Johnie [facility] 03-16-2023 10:21-0500 Body temperature 97.52 [degF] Earnest Johnie [facility] 03-16-2023 10:21-0500 Heart rate 70 /min Earnest Johnie [facility] 03-16-2023 10:21-0500 SaO2% (BldA) [Mass fraction] 100 % Earnest Johnie [facility] 03-15-2023 18:00-0500 Diastolic blood pressure 75 mm[Hg] Earnest Johnie [facility] 03-15-2023 18:00-0500 Heart rate 68 /min Earnest Johnie [facility] 03-15-2023 18:00-0500 Mean blood pressure 94 mm[Hg] Earnest Johnie [facility] 03-15-2023 18:00-0500 Respiratory rate 16 /min Earnest Johnie [facility] 03-15-2023 18:00-0500 SaO2% (BldA) [Mass fraction] 98 % Earnest Johnie [facility] 03-15-2023 18:00-0500 Systolic blood pressure 131 mm[Hg] Earnest Johnie [facility] 03-15-2023 17:19-0500 Diastolic blood pressure 66 mm[Hg] Earnest Johnie [facility] 03-15-2023 17:19-0500 Heart rate 56 /min Earnest Johnie [facility] 03-15-2023 17:19-0500 Mean blood pressure 79 mm[Hg] Earnest Johnie [facility] 03-15-2023 17:19-0500 Respiratory rate 18 /min Earnest Johnie [facility] 03-15-2023 17:19-0500 SaO2% (BldA) [Mass fraction] 95 % Earnest Johnie [facility] 03-15-2023 17:19-0500 Systolic blood pressure 104 mm[Hg] Earnest Johnie [facility] 03-15-2023 16:23-0500 Diastolic blood pressure 72 mm[Hg] Earnest Johnie [facility] 03-15-2023 16:23-0500 Heart rate 58 /min Earnest Johnie [facility] 03-15-2023 16:23-0500 Mean blood pressure 90 mm[Hg] Earnest Johnie [facility] 03-15-2023 16:23-0500 Respiratory rate 20 /min Earnest Johnie [facility] 03-15-2023 16:23-0500 SaO2% (BldA) [Mass fraction] 99 % Earnest Johnie [facility] 03-15-2023 16:23-0500 Systolic blood pressure 126 mm[Hg] Earnest Johnie [facility] 03-15-2023 11:41-0500 Body temperature 97.88 [degF] Earnest Jett [facility] 03-15-2023 11:41-0500 Heart rate 71 /min Earnest Jett [facility] 03-15-2023 11:41-0500 Respiratory rate 26 /min Earnest Jett [facility] 03-10-2023 11:50-0500 Body temperature 97.9 [degF] Sherry Magaña MD Work Phone: [facility] 03-10-2023 11:50-0500 Diastolic blood pressure 85 mm[Hg] Sherry Magaña MD Work Phone: [facility] 03-10-2023 11:50-0500 Heart rate 73 /min Sherry Magaña MD Work Phone: [facility] 03-10-2023 11:50-0500 Respiratory rate 18 /min Sherry Magaña MD Work Phone: [facility] 03-10-2023 11:50-0500 SaO2% (BldA) [Mass fraction] 100 % Sherry Magaña MD Work Phone: [facility] 03-10-2023 11:50-0500 Systolic blood pressure 137 mm[Hg] Sherry Magaña MD Work Phone: [facility] 03-10-2023 08:32-0500 Body mass index (BMI) [Ratio] 29.69 kg/m2 Sherry Magaña MD Work Phone: [facility] 03-10-2023 08:32-0500 Body weight 83.4 kg Sherry Magaña MD Work Phone: [facility] 03-05-2023 06:42-0500 Body height 167.6 cm Sherry Magaña MD Work Phone: [facility] 02-13-2023 17:30-0500 Diastolic blood pressure 73 mm[Hg] FOLLOW UP MANAGER-C Jaquan Cristhian Work Phone: [facility] 02-13-2023 17:30-0500 Heart rate 61 /min FOLLOW UP MANAGER-C Jaquan Cristhian Work Phone: [facility] 02-13-2023 17:30-0500 Respiratory rate 18 /min FOLLOW UP MANAGER-C Jaquan Cristhian Work Phone: [facility] 02-13-2023 17:30-0500 SaO2% (BldA) [Mass fraction] 100 % FOLLOW UP MANAGER-C Jaquan Cristhian Work Phone: [facility] 02-13-2023 17:30-0500 Systolic blood pressure 121 mm[Hg] FOLLOW UP MANAGER-C Jaquan Cristhian Work Phone: [facility] 02-13-2023 10:43-0500 Body height 167.64 cm FOLLOW UP MANAGER-C Jaquan Cristhian Work Phone: [facility] 02-13-2023 10:43-0500 Body weight 83 kg FOLLOW UP MANAGER-C Jaquan Cristhian Work Phone: [facility] 02-13-2023 10:42-0500 Body temperature 98.2 [degF] FOLLOW UP MANAGER-C Jaquan Cristhian Work Phone: [facility] 12-31-2022 15:49-0500 Diastolic blood pressure 82 mm[Hg] Mateusz Garcia [facility] 12-31-2022 15:49-0500 Heart rate 81 /min Mateusz Garcia [facility] 12-31-2022 15:49-0500 Mean blood pressure 96 mm[Hg] Mateusz Garcia [facility] 12-31-2022 15:49-0500 Respiratory rate 16 /min Mateusz Garcia [facility] 12-31-2022 15:49-0500 SaO2% (BldA) [Mass fraction] 100 % Mateusz Jose [facility] 12-31-2022 15:49-0500 Systolic blood pressure 124 mm[Hg] Mateusz Jose [facility] 12-31-2022 15:40-0500 Hourly Rounding Mateusz Jose [facility] 12-31-2022 15:40-0500 Promise to Return Mateusz Jose [facility] 12-31-2022 15:00-0500 Diastolic blood pressure 78 mm[Hg] Mateusz Jose [facility] 12-31-2022 15:00-0500 Heart rate 76 /min Mateusz Jose [facility] 12-31-2022 15:00-0500 Mean blood pressure 91 mm[Hg] Mateusz Jose [facility] 12-31-2022 15:00-0500 Systolic blood pressure 117 mm[Hg] Mateusz Jose [facility] 12-31-2022 14:40-0500 Hourly Rounding Mateusz Jose [facility] 12-31-2022 14:40-0500 Promise to Return Mateusz Jose [facility] 12-31-2022 14:00-0500 Diastolic blood pressure 83 mm[Hg] Mateusz Jose [facility] 12-31-2022 14:00-0500 Heart rate 71 /min Mateusz Jose [facility] 12-31-2022 14:00-0500 Mean blood pressure 99 mm[Hg] Mateusz Jose [facility] 12-31-2022 14:00-0500 Systolic blood pressure 132 mm[Hg] Mateusz Garcia [facility] 12-31-2022 13:40-0500 Hourly Rounding Mateusz Garcia [facility] 12-31-2022 13:40-0500 Promise to Return Mateusz Garcia [facility] 12-31-2022 12:42-0500 Body temperature 97.7 [degF] Mateusz Garcia [facility] 12-31-2022 12:42-0500 Heart rate 88 /min Mateusz Garcia [facility] 12-04-2022 09:54-0400 Body height 166 cm Agustin Zamorano MD Work Phone: [facility] 12-04-2022 09:54-0400 Body weight 83.78 kg Agustin Zamorano MD Work Phone: [facility] 12-04-2022 09:54-0400 Diastolic blood pressure 62 mm[Hg] Agustin Zamorano MD Work Phone: [facility] 12-04-2022 09:54-0400 Heart rate 91 /min Agustin Zamorano MD Work Phone: [facility] 12-04-2022 09:54-0400 Systolic blood pressure 112 mm[Hg] Agustin Zamorano MD Work Phone: [facility] 11-04-2022 12:00-0400 Body temperature 97.7 [degF] Rheu Jeanne Work Phone: [facility] 11-04-2022 12:00-0400 Diastolic blood pressure 65 mm[Hg] Rheu Jeanne Work Phone: [facility] 11-04-2022 12:00-0400 Heart rate 97 /min Rheu Jeanne Work Phone: [facility] 11-04-2022 09:19-0400 Body height 167.6 cm Deacon Kat MD Work Phone: [facility] 11-04-2022 09:19-0400 Body temperature 97.81 [degF] Deacon Kat MD Work Phone: [facility] 11-04-2022 09:19-0400 Body weight 83.46 kg Deacon Kat MD Work Phone: [facility] 11-04-2022 09:19-0400 Diastolic blood pressure 81 mm[Hg] Deacon Kat MD Work Phone: [facility] 11-04-2022 09:19-0400 Heart rate 82 /min Deacon Kat MD Work Phone: [facility] 11-04-2022 09:19-0400 Respiratory rate 18 /min Deacon Kat MD Work Phone: [facility] 11-04-2022 09:19-0400 SaO2% (BldA) [Mass fraction] 98 % Deacon Kat MD Work Phone: [facility] 11-04-2022 09:19-0400 Systolic blood pressure 125 mm[Hg] Deacon Kat MD Work Phone: [facility] 11-02-2022 13:52-0400 Diastolic blood pressure 82 mm[Hg] Dimitri Walker MD Work Phone: [facility] 11-02-2022 13:52-0400 Heart rate 82 /min [facility]imitri Walker MD [facility] 11-02-2022 13:52-0400 Respiratory rate 18 /min Dimitri Walker MD [facility] 11-02-2022 13:52-0400 Systolic blood pressure 128 mm[Hg] Dimitri Walker MD [facility] 11-02-2022 10:35-0400 Body mass index (BMI) [Ratio] 30.18 kg/m2 Dimitri Walker MD Work Phone: [facility] 11-02-2022 10:35-0400 Body weight 84.82 kg Dimitri Walker MD Work Phone: [employer] Comment on above: stand up scale triage room 11-02-2022 10:34-0400 Body temperature 98.29 [degF] Dimitri Walker MD Work Phone: [facility] 11-02-2022 10:34-0400 SaO2% (BldA) [Mass fraction] 98 % Dimitri Walker MD Work Phone: [employer] 10-31-2022 08:30-0400 Diastolic blood pressure 67 mm[Hg] Jalyn Suresh DO Work Phone: [facility] [employer] 10-31-2022 08:30-0400 Systolic blood pressure 120 mm[Hg] Jalyn Suresh DO Work Phone: [facility] [employer] 10-31-2022 06:32-0400 Body temperature 97.7 [degF] Jalyn Suresh DO Work Phone: [facility] [employer] 10-31-2022 06:32-0400 Heart rate 92 /min Jalyn Suresh DO Work Phone: [facility] [employer] 10-31-2022 06:32-0400 Respiratory rate 19 /min Jalyn Suresh DO Work Phone: [facility] [employer] 10-31-2022 06:32-0400 SaO2% (BldA) [Mass fraction] 100 % Jalyn Suresh DO [facility] Phone[facility] 10-20-2022 11:52-0400 Diastolic blood pressure 86 mm[Hg] Earnest Jett [facility] 10-20-2022 11:52-0400 Heart rate 75 /min Earnest Jett [facility] 10-20-2022 11:52-0400 Respiratory rate 15 /min Earnest Johnie [facility] 10-20-2022 11:52-0400 SaO2% (BldA) [Mass fraction] 99 % Earnest Johnie [facility] 10-20-2022 11:52-0400 Systolic blood pressure 141 mm[Hg] Earnest Johnie [facility] 10-20-2022 10:31-0400 Diastolic blood pressure 70 mm[Hg] Earnest Johnie [facility] 10-20-2022 10:31-0400 Heart rate 70 /min Earnest Johnie [facility] 10-20-2022 10:31-0400 Mean blood pressure 92 mm[Hg] Earnets Johnie [facility] 10-20-2022 10:31-0400 Respiratory rate 16 /min Earnest Johnie [facility] 10-20-2022 10:31-0400 SaO2% (BldA) [Mass fraction] 100 % Earnest Johnie [facility] 10-20-2022 10:31-0400 Systolic blood pressure 137 mm[Hg] Earnest Johnie [facility] 10-20-2022 09:17-0400 Diastolic blood pressure 63 mm[Hg] Earnest Johnie [facility] 10-20-2022 09:17-0400 Heart rate 77 /min Earnest Johnie [facility] 10-20-2022 09:17-0400 Mean blood pressure 85 mm[Hg] Earnest Johnie [facility] 10-20-2022 09:17-0400 Respiratory rate 18 /min Earnest Johnie [facility] 10-20-2022 09:17-0400 SaO2% (BldA) [Mass fraction] 100 % Earnest Johnie [facility] 10-20-2022 09:17-0400 Systolic blood pressure 128 mm[Hg] Earnest Johnie [facility] 10-20-2022 08:17-0400 Body temperature 97.88 [degF] Earnest Johnie [facility] 10-19-2022 13:30-0400 Diastolic blood pressure 82 mm[Hg] Earnest Johnie [facility] 10-19-2022 13:30-0400 Heart rate 67 /min Earnest Johnie [facility] 10-19-2022 13:30-0400 Mean blood pressure 100 mm[Hg] Earnest Johnie [facility] 10-19-2022 13:30-0400 Respiratory rate 20 /min Earnest Johnie [facility] 10-19-2022 13:30-0400 SaO2% (BldA) [Mass fraction] 100 % Earnest Johnie [facility] 10-19-2022 13:30-0400 Systolic blood pressure 136 mm[Hg] Earnest Johnie [facility] 10-19-2022 13:00-0400 Heart rate 61 /min Earnest Johnie [facility] 10-19-2022 13:00-0400 Respiratory rate 18 /min Earnest Johnie [facility] 10-19-2022 13:00-0400 Systolic blood pressure 127 mm[Hg] Earnest Johnie [facility] 10-19-2022 12:30-0400 Diastolic blood pressure 80 mm[Hg] Earnest Jett [facility] 10-19-2022 12:30-0400 Heart rate 60 /min Earnest Jett [facility] 10-19-2022 12:30-0400 Mean blood pressure 97 mm[Hg] Earnest Jett [facility] 10-19-2022 12:30-0400 Respiratory rate 20 /min Earnest Jett [facility] 10-19-2022 12:30-0400 SaO2% (BldA) [Mass fraction] 100 % Earnest Jett [facility] 10-19-2022 12:30-0400 Systolic blood pressure 132 mm[Hg] Earnest Jett [facility] 10-19-2022 08:34-0400 Body temperature 96.62 [degF] Earnest Jett [facility] 10-19-2022 08:34-0400 Heart rate 73 /min Earnest Jett [facility] 09-28-2022 07:54-0400 Body height 167.[address] Work Phone: [facility] 09-28-2022 07:54-0400 Body weight 83.[address] Work Phone: [facility] 09-18-2022 15:12-0400 Body height 167.6 cm Breanna Stern AMMONIA SOLUTION PREPARER.RADIOCOMMUNICATIONS TECHNICIAN Work Phone: [facility] 09-18-2022 15:12-0400 Body temperature 97.5 [degF] Breanna Stern AMMONIA SOLUTION PREPARER.RADIOCOMMUNICATIONS TECHNICIAN Work Phone: [facility] 09-18-2022 15:12-0400 Body weight 83.46 kg Breanna Stern AMMONIA SOLUTION PREPARER.RADIOCOMMUNICATIONS TECHNICIAN Work Phone: [facility] 09-18-2022 15:12-0400 Diastolic blood pressure 88 mm[Hg] Breanna Jarred AMMONIA SOLUTION PREPARER.RADIOCOMMUNICATIONS TECHNICIAN Work Phone: [facility] 09-18-2022 15:12-0400 Heart rate 65 /min Breanna Stern AMMONIA SOLUTION PREPARER.RADIOCOMMUNICATIONS TECHNICIAN Work Phone: [facility] 09-18-2022 15:12-0400 SaO2% (BldA) [Mass fraction] 99 % Breanna Stern AMMONIA SOLUTION PREPARER.RADIOCOMMUNICATIONS TECHNICIAN Work Phone: [facility] 09-18-2022 15:12-0400 Systolic blood pressure 118 mm[Hg] Breanna Stern AMMONIA SOLUTION PREPARER.RADIOCOMMUNICATIONS TECHNICIAN Work Phone: [facility] 07-29-2022 08:40-0400 Blood Pressure Location Rajni Lue [facility] 07-29-2022 08:40-0400 Diastolic blood pressure 86 mm[Hg] Rajni Lue [facility] 07-29-2022 08:40-0400 Heart rate 71 /min Rajni Lue [facility] 07-29-2022 08:40-0400 Systolic blood pressure 127 mm[Hg] Rajni Lue [facility] 07-22-2022 10:08-0400 Body height 167.6 cm Kasie Avalos MD Work Phone: [facility] 07-22-2022 10:08-0400 Body temperature 98.1 [degF] Kasie Avalos MD Work Phone: [facility] 07-22-2022 10:08-0400 Body weight 79.92 kg Kasie Avalos MD Work Phone: [facility] 07-22-2022 10:08-0400 Diastolic blood pressure 89 mm[Hg] Kasie Avalos MD Work Phone: [facility] 07-22-2022 10:08-0400 Heart rate 72 /min Kasie Avalos MD Work Phone: [facility] 07-22-2022 10:08-0400 SaO2% (BldA) [Mass fraction] 100 % Kasie Avalos MD Work Phone: [facility] 07-22-2022 10:08-0400 Systolic blood pressure 136 mm[Hg] Kasie Avalos MD Work Phone: [facility] 06-12-2022 10:00-0400 Body height 167.6 cm Aliyah Ziganti PA-C Work Phone: [facility] 06-12-2022 10:00-0400 Body temperature 97.5 [degF] Aliyah Ziganti PA-C Work Phone: [facility] 06-12-2022 10:00-0400 Body weight 84.37 kg Aliyah Ziganti PA-C Work Phone: [facility] 06-12-2022 10:00-0400 Diastolic blood pressure 78 mm[Hg] Aliyah Ziganti PA-C Work Phone: [facility] 06-12-2022 10:00-0400 Heart rate 68 /min Aliyah Ziganti PA-C Work Phone: [facility] 06-12-2022 10:00-0400 Systolic blood pressure 123 mm[Hg] Aliyah Ziganti PA-C Work Phone: [facility] 06-10-2022 17:43-0400 Diastolic blood pressure 74 mm[Hg] [facility] 06-10-2022 17:43-0400 Heart rate 65 /min [facility] 06-10-2022 17:43-0400 Mean blood pressure 90 mm[Hg] [facility] 06-10-2022 17:43-0400 Respiratory rate 16 /min [facility] 06-10-2022 17:43-0400 SaO2% (BldA) [Mass fraction] 100 % [facility] 06-10-2022 17:43-0400 Systolic blood pressure 122 mm[Hg] [facility] 06-10-2022 17:00-0400 Diastolic blood pressure 77 mm[Hg] [facility] 06-10-2022 17:00-0400 Heart rate 66 /min [facility] 06-10-2022 17:00-0400 Mean blood pressure 94 mm[Hg] [facility] 06-10-2022 17:00-0400 Systolic blood pressure 129 mm[Hg] [facility] 06-10-2022 16:00-0400 Heart rate 83 /min [facility] 06-10-2022 16:00-0400 Mean blood pressure 93 mm[Hg] [facility] 06-10-2022 16:00-0400 Systolic blood pressure 130 mm[Hg] [facility] 06-10-2022 12:32-0400 Body temperature 97.7 [degF] [facility] 06-10-2022 12:32-0400 Heart rate 88 /min [facility] 06-10-2022 12:32-0400 Respiratory rate 18 /min [facility] 03-06-2022 15:30-0500 Diastolic blood pressure 70 mm[Hg] Deacon Kat MD Work Phone: [facility] 03-06-2022 15:30-0500 Heart rate 67 /min Deacon Kat MD Work Phone: [facility] 03-06-2022 15:30-0500 Respiratory rate 16 /min Deacon Kat MD Work Phone: [facility] 03-06-2022 15:30-0500 SaO2% (BldA) [Mass fraction] 100 % Deacon Kat MD Work Phone: [facility] 03-06-2022 15:30-0500 Systolic blood pressure 105 mm[Hg] Deacon Kat MD Work Phone: [facility] 03-06-2022 13:00-0500 Body temperature 96.8 [degF] Deacon Kat MD Work Phone: [facility] 03-05-2022 09:33-0500 Body weight 89.81 kg Breanna Stern AMMONIA SOLUTION PREPARER.RADIOCOMMUNICATIONS TECHNICIAN Work Phone: [facility] 02-04-2022 09:23-0500 Body height 167.[address] Work Phone: [facility] 02-04-2022 09:23-0500 Body weight 93.[address] Work Phone: [facility] 02-03-2022 14:55-0500 Body height 167.6 cm Breanna Stern AMMONIA SOLUTION PREPARER.RADIOCOMMUNICATIONS TECHNICIAN Work Phone: [facility] 02-03-2022 14:55-0500 Body temperature 97 [degF] Breanna Stern AMMONIA SOLUTION PREPARER.RADIOCOMMUNICATIONS TECHNICIAN Work Phone: [facility] 02-03-2022 14:55-0500 Body weight 93.44 kg Breanna Stern AMMONIA SOLUTION PREPARER.RADIOCOMMUNICATIONS TECHNICIAN Work Phone: [facility] 02-03-2022 14:55-0500 Diastolic blood pressure 81 mm[Hg] Breanna Stern AMMONIA SOLUTION PREPARER.RADIOCOMMUNICATIONS TECHNICIAN Work Phone: [facility] 02-03-2022 14:55-0500 Heart rate 76 /min Breanna Stern AMMONIA SOLUTION PREPARER.RADIOCOMMUNICATIONS TECHNICIAN Work Phone: [facility] 02-03-2022 14:55-0500 SaO2% (BldA) [Mass fraction] 99 % Breanna Stern AMMONIA SOLUTION PREPARER.RADIOCOMMUNICATIONS TECHNICIAN Work Phone: [facility] 02-03-2022 14:55-0500 Systolic blood pressure 128 mm[Hg] Breanna Stern APRN.RADIOCOMMUNICATIONS TECHNICIAN Work Phone: [facility] 01-28-2022 08:41-0500 Body height 167.6 cm Pacc 2 Work Phone: [facility] 01-28-2022 08:41-0500 Body temperature 97.9 [degF] Pacc 2 Work Phone: [facility] 01-28-2022 08:41-0500 Body weight 94.8 kg Pacc 2 Work Phone: [facility] 01-28-2022 08:41-0500 Diastolic blood pressure 85 mm[Hg] Pacc 2 Work Phone: [facility] 01-28-2022 08:41-0500 Heart rate 65 /min Pacc 2 Work Phone: [facility] 01-28-2022 08:41-0500 Respiratory rate 16 /min Pacc 2 Work Phone: [facility] 01-28-2022 08:41-0500 SaO2% (BldA) [Mass fraction] 100 % Pacc 2 Work Phone: [facility] 01-28-2022 08:41-0500 Systolic blood pressure 131 mm[Hg] Pacc 2 Work Phone: [facility] 01-02-2022 11:06-0500 Body weight 92.99 kg Sabina Joy APRN.RADIOCOMMUNICATIONS TECHNICIAN Work Phone: [facility] 12-25-2021 10:10-0500 Diastolic blood pressure 76 mm[Hg] Britt Cross MD Work Phone: [facility] 12-25-2021 10:10-0500 Heart rate 74 /min Britt Cross MD Work Phone: [facility] 12-25-2021 10:10-0500 Respiratory rate 18 /min Britt Cross MD Work Phone: [facility] 12-25-2021 10:10-0500 SaO2% (BldA) [Mass fraction] 100 % Britt Cross MD Work Phone: [facility] 12-25-2021 10:10-0500 Systolic blood pressure 140 mm[Hg] Britt Cross MD Work Phone: [facility] 12-25-2021 08:26-0500 Body height 167.6 cm Britt Cross MD Work Phone: [facility] 12-25-2021 08:26-0500 Body temperature 98.1 [degF] Britt Cross MD Work Phone: [facility] 12-25-2021 08:26-0500 Body weight 92.99 kg Britt Cross MD Work Phone: [facility] 10-09-2021 15:44-0400 Body height 167.6 cm Saibna Vacco AMMONIA SOLUTION PREPARER.RADIOCOMMUNICATIONS TECHNICIAN Work Phone: [facility] 10-09-2021 15:44-0400 Body weight 89.81 kg Sabina Vacco AMMONIA SOLUTION PREPARER.RADIOCOMMUNICATIONS TECHNICIAN Work Phone: [facility] 08-30-2021 03:47-0400 Diastolic blood pressure 70 mm[Hg] Pablo Rai VALENZUELA Work Phone: [employer] 08-30-2021 03:47-0400 Systolic blood pressure 130 mm[Hg] Pablo Rai VALENZUELA Work Phone: [employer] 08-30-2021 03:46-0400 Body temperature 100.4 [degF] Pablo Atwood Work Phone: [employer] 08-30-2021 03:46-0400 Heart rate 107 /min Pablo Atwood Work Phone: [employer] 08-30-2021 03:46-0400 Respiratory rate 19 /min Pablo Atwood Work Phone: [employer] 08-30-2021 03:46-0400 SaO2% (BldA) [Mass fraction] 96 % Pablo Atwood Work Phone: [employer] 08-28-2021 07:54-0400 Body height 167.[address] Work Phone: [facility] 08-28-2021 07:54-0400 Body weight 90.[address] Work Phone: [facility] 08-17-2021 12:00-0400 Body height 167.64 cm Shnana Slade Other [employer] Other 08-17-2021 12:00-0400 Body mass index (BMI) [Ratio] 33.08 kg/m2 Shanna Slade Other [employer] Other 08-17-2021 12:00-0400 Body temperature 98.1 [degF] Shanna June Other [employer] Other 08-17-2021 12:00-0400 Body weight 92.99 kg Shanna Granadosault Other [employer] Other 08-17-2021 12:00-0400 Diastolic blood pressure 80 mm[Hg] Shanna Slade Other [employer] Other 08-17-2021 12:00-0400 Respiratory rate 18 /min Shanna June Other [employer] Other 08-17-2021 12:00-0400 SaO2% (BldA) [Mass fraction] 99 % Shanna June Other [employer] Other 08-17-2021 12:00-0400 Systolic blood pressure 137 mm[Hg] Shanna June Other [employer] Other 07-27-2021 14:25-0400 Respiratory rate 18 /min Angela Do MD Work Phone: [employer] 07-27-2021 14:03-0400 SaO2% (BldA) [Mass fraction] 98 % Angela Do MD Work Phone: [employer] 07-27-2021 13:27-0400 Diastolic blood pressure 44 mm[Hg] Angela Do MD Work Phone: [employer] 07-27-2021 13:27-0400 Systolic blood pressure 110 mm[Hg] Angela Do MD Work Phone: [employer] 07-27-2021 10:18-0400 Body mass index (BMI) [Ratio] 31.47 kg/m2 Angela Do MD Work Phone: [employer] 07-27-2021 10:18-0400 Body temperature 98.6 [degF] Angela Do MD Work Phone: [employer] 07-27-2021 10:18-0400 Body weight 88.45 kg Angela Do MD Work Phone: [employer] 07-27-2021 10:18-0400 Heart rate 71 /min Angela Do MD Work Phone: [employer] 03-31-2021 11:00-0500 Body height 167.64 cm Shanna June Other [employer] Other 03-31-2021 11:00-0500 Body mass index (BMI) [Ratio] 33.08 kg/m2 Shanna June Other [employer] Other 03-31-2021 11:00-0500 Body temperature 98 [degF] Shanna June Other [employer] Other 03-31-2021 11:00-0500 Body weight 92.99 kg Shanna June Other [employer] Other 03-31-2021 11:00-0500 Diastolic blood pressure 91 mm[Hg] Shanna June Other [employer] Other 03-31-2021 11:00-0500 Respiratory rate 18 /min Shanna June Other [employer] Other 03-31-2021 11:00-0500 SaO2% (BldA) [Mass fraction] 100 % Shanna June Other [employer] Other 03-31-2021 11:00-0500 Systolic blood pressure 142 mm[Hg] Shanna Granadosault Other [employer] Other 01-28-2021 12:00-0500 Body height 167.64 cm Shanna June Other [employer] Other 01-28-2021 12:00-0500 Body mass index (BMI) [Ratio] 33.08 kg/m2 Shanna June Other [employer] Other 01-28-2021 12:00-0500 Body temperature 98 [degF] Shanna Granadosault Other [employer] Other 01-28-2021 12:00-0500 Body weight 92.99 kg Shanna Granadosault Other [employer] Other 01-28-2021 12:00-0500 Diastolic blood pressure 92 mm[Hg] Shanna Granadosault Other [employer] Other 01-28-2021 12:00-0500 Respiratory rate 18 /min Shanna June Other [employer] Other 01-28-2021 12:00-0500 SaO2% (BldA) [Mass fraction] 100 % Shanna June Other [employer] Other 01-28-2021 12:00-0500 Systolic blood pressure 143 mm[Hg] Shanna June Other [employer] Other 12-17-2020 17:30-0400 Body height 167.64 cm Shanna June Other [employer] Other 12-17-2020 17:30-0400 Body mass index (BMI) [Ratio] 32.92 kg/m2 Shanna June Other [employer] Other 12-17-2020 17:30-0400 Body temperature 98.2 [degF] Shanna June Other [employer] Other 12-17-2020 17:30-0400 Body weight 92.53 kg Shanna June Other [employer] Other 12-17-2020 17:30-0400 Diastolic blood pressure 71 mm[Hg] Shanna Granadosault Other [employer] Other 12-17-2020 17:30-0400 Respiratory rate 18 /min Shanna Granadosault Other [employer] Other 12-17-2020 17:30-0400 SaO2% (BldA) [Mass fraction] 100 % Shanna June Other [employer] Other 12-17-2020 17:30-0400 Systolic blood pressure 117 mm[Hg] Shanna June Other [employer] Other 12-14-2020 15:07-0400 Body height 167.6 cm Shanna June AMMONIA SOLUTION PREPARER - FOLLOW UP MANAGER Work Phone: [employer] Work Phone: 12-14-2020 15:07-0400 Body mass index (BMI) [Ratio] 32.77 kg/m2 Shanna June AMMONIA SOLUTION PREPARER - FOLLOW UP MANAGER Work Phone: [employer] Work Phone: 12-14-2020 15:07-0400 Body temperature 98.8 [degF] Shanna June AMMONIA SOLUTION PREPARER - FOLLOW UP MANAGER Work Phone: [employer] Work Phone: 12-14-2020 15:07-0400 Body weight 92.08 kg Shanna June AMMONIA SOLUTION PREPARER - FOLLOW UP MANAGER Work Phone: [employer] Work Phone: 12-14-2020 15:07-0400 Diastolic blood pressure 90 mm[Hg] Shanna June AMMONIA SOLUTION PREPARER - FOLLOW UP MANAGER Work Phone: [employer] Work Phone: 12-14-2020 15:07-0400 Heart rate 85 /min Shanna June AMMONIA SOLUTION PREPARER - FOLLOW UP MANAGER Work Phone: [employer] Work Phone: 12-14-2020 15:07-0400 Respiratory rate 20 /min Shanna June AMMONIA SOLUTION PREPARER - FOLLOW UP MANAGER Work Phone: [employer] Work Phone: 12-14-2020 15:07-0400 SaO2% (BldA) [Mass fraction] 100 % Shanna June AMMONIA SOLUTION PREPARER - FOLLOW UP MANAGER [facility] Work Phone: 12-14-2020 15:07-0400 Systolic blood pressure 139 mm[Hg] Shanna June AMMONIA SOLUTION PREPARER - FOLLOW UP MANAGER Work Phone: [facility] Work Phone: 07-02-2020 13:16-0400 Diastolic blood pressure 56 mm[Hg] Vaughn Ceja MD Work Phone: [employer] 07-02-2020 13:16-0400 Heart rate 71 /min Vaughn Ceja MD Work Phone: [facility] 07-02-2020 13:16-0400 Respiratory rate 18 /min Vaughn Ceja MD Work Phone: [facility] 07-02-2020 13:16-0400 SaO2% (BldA) [Mass fraction] 99 % Vaughn Ceja MD Work Phone: [employer] 07-02-2020 13:16-0400 Systolic blood pressure 165 mm[Hg] Vaughn Ceja MD Work Phone: [facility] 07-02-2020 12:44-0400 Body temperature 97.39 [degF] Vaughn Ceja MD Work Phone: [facility] 07-02-2020 12:35-0400 Body height 167.6 cm Vaughn Ceja MD Work Phone: [employer] 07-02-2020 12:35-0400 Body mass index (BMI) [Ratio] 37.12 kg/m2 Vaughn Ceja MD Work Phone: [facility] 07-02-2020 12:35-0400 Body weight 104.33 kg Vaughn Ceja MD Work Phone: [facility] 01-30-2020 17:34-0500 BP Diastolic 76 mm[Hg] [facility] 01-30-2020 17:34-0500 BP [facility]stolic 139 mm[Hg[facility]-30-[facility] 17:34-0500 Pulse (Heart Rate) 87 /min Agustin De La Fuente [facility] 01-30-2020 17:34-0500 Pulse Oximetry 100 % [facility] 01-30-2020 17:34-0500 Respiratory Rate 18 /min [facility] 01-30-2020 13:22-0500 Height 167.6 [facility]-30-2020 13:16-0500 Body Temperature 97.81 [degF] [facility] Encounters Encounter Date Encounter Type Care Provider Facility Start: 09-09-2023 Admission to [facility] Deacon Kat MD Work Phone: General Surgery Comment on above: 10/20/2023 (Diagnostic Laparoscopy) Start: 09-09-2023 ambulatory Deacon sousa MD Work Phone: General Surgery Start: 09-09-2023 Patient encounter status Deacon Kat MD Work Phone: [facility] Start: 09-08-2023 End: 09-08-2023 Patient encounter procedure Kasie Avalos MD Work Phone: Gastroenterology Comment on above: Multiple gastric ulc ers (Primary Dx); LUQ pain; Gastroesophageal reflux disease with esophagitis without hemorrhage; Constipation, unspecified constipation type Start: 09-02-2023 Orders Only Kasie Avalos MD Work Phone: Gastroenterology Start: 09-01-2023 End: 09-01-2023 ambulatory TINO MONAHAN Not Available Start: 08-30-2023 End: 08-31-2023 ambulatory THOMAS CALIX Facility:[facility] Start: 08-30-2023 End: 08-31-2023 Nursing evaluation of patient and report Nurse [facility] Work Phone: Gastroenterology Comment on above: Gastroesophageal ref lux disease, unspecified whether esophagitis present (Primary Dx) Start: 08-26-2023 End: 08-26-2023 Nursing evaluation of patient and report Nurse [facility] Work Phone: Gastroenterology Comment on above: Gastroesophageal ref lux disease, unspecified whether esophagitis present Start: 08-26-2023 End: 08-26-2023 ambulatory [facility] Facility:[facility] Start: 08-26-2023 End: 08-26-2023 Subsequent hospital visit [...] 08-21-2023 End: 08-21-2023 Emergency department patient visit FOLLOW UP MANAGER-Elroy Morrow Work Phone: [facility] Work Phone: Start: 08-18-2023 Telephone encounter Deacon shahid MD Work Phone: General Surgery Comment on above: Patient Question; Ca re Coordinator - Other Start: 08-14-2023 End: 08-14-2023 Emergency department patient visit FOLLOW UP MANAGER-Elroy Morrow Work Phone: [facility] Work Phone: Start: 08-12-2023 Telephone encounter Radha Arzate Gastroenterology Comment on above: Education Of Patient /family; Reminder Call (08/26/23 appt confirmed) Start: 08-09-2023 End: 08-09-2023 ambulatory [facility] Facility:[facility] Start: 08-09-2023 End: 08-09-2023 Patient encounter procedure Vic Ramos MD Work Phone: Pain Management Comment on above: Neuralgia and neurit is (Primary Dx); Median arcuate ligament syndrome (HCC) Start: 08-07-2023 End: 08-08-2023 Evaluation and management of inpatient SHANNA WOODS Facility:[facility] Start: 08-05-2023 ambulatory Boogie Sandy Work Phone: Pain Management Comment on above: Ketamine nasal spray Medication Renewal Start: 08-04-2023 Telephone encounter Boogie Tompkins ud, MD Work Phone: Pain Management Comment on above: Medication Problem Start: 08-04-2023 End: 08-06-2023 Evaluation and management of inpatient MARIA TERESA [facility] Facility:[facility] Start: 08-04-2023 End: 08-04-2023 ambulatory Rajni Rouse Facility:[facility] Start: 08-04-2023 End: 08-04-2023 Patient encounter procedure Boogie Murguia MD Work Phone: Pain Management Comment on above: Chronic abdominal pa in (Primary Dx); Gastroesophageal reflux disease without esophagitis; Neuralgia and neuritis; Median arcuate ligament syndrome (HCC); S/P gastric bypass Start: 07-31-2023 End: 07-31-2023 Emergency department patient visit FOLLOW UP MANAGER-Elroy Morrow Work Phone: [facility] Work Phone: Start: 07-30-2023 End: 07-31-2023 Emergency department patient visit THOMAS CALIX Facility:[facility] Start: 07-28-2023 End: 07-28-2023 ambulatory TINO MONAHAN Not Available Start: 07-19-2023 Orders Only Deacon sousa MD Work Phone: General Surgery Comment on above: Chronic nausea (Prim reji Dx); History of laparoscopic partial gastrectomy; History of sphincterotomy of sphincter of Oddi; Median arcuate ligament syndrome (HCC) Start: 07-17-2023 End: 07-20-2023 Evaluation and management of inpatient DEACON KAT Facility:[facility] Start: 07-17-2023 End: 07-17-2023 Evaluation and management of inpatient FOLLOW UP MANAGER-Elroy Morrow Work Phone: [facility] Work Phone: Start: 07-15-2023 End: 07-15-2023 ambulatory JAQUAN ZAMORAAB Facility:[facility] Start: 07-13-2023 Telephone encounter Natalie Jameson LPN Gastroenterology Comment on above: Appointment Start: 07-13-2023 ambulatory OLGA Granados ty:JENNIFER Edmondson Start: 07-09-2023 End: 07-09-2023 [facility] Work Phone: Neurology Comment on above: ARSALAN (generalized anx iety disorder) (Primary Dx); Panic disorder without agoraphobia; Moderate recurrent major depression (HCC) Start: 07-06-2023 End: 07-06-2023 Emergency department patient visit KARINA SEVERIANO Facility:[facility] Start: 07-06-2023 End: 07-06-2023 ambulatory Francisco J Steve MD Work Phone: Urology Start: 07-06-2023 End: 07-06-2023 Patient encounter procedure Francisco J Steve MD Work Phone: Urology Comment on above: Urinary frequency (P rimary Dx); Urgency of urination Start: 06-29-2023 End: 07-05-2023 ambulatory [facility] Start: 06-29-2023 End: 06-29-2023 Subsequent hospital visit by physician Sheridan Garciav1 [employer] [employer] [facility] Start: 06-29-2023 End: 07-03-2023 Evaluation and management of inpatient David Valadez DO Work Phone: [facility] [address] Comment on above: Epigastric pain (Loretta alla Dx); Median arcuate ligament syndrome (CMS-HCC); Nausea and vomiting, unspecified vomiting type; Other specified hyperalimentation; Generalized abdominal pain Start: 06-29-2023 End: 06-29-2023 ambulatory MARCOS MORENO Not Available Start: 06-22-2023 End: 06-22-2023 Office outpatient visit 10 minutes Sherry Magaña MD Work Phone: [facility] Comment on above: Median arcuate ligam ent syndrome (CMS-HCC) (Primary Dx) Start: 06-22-2023 End: 06-22-2023 ambulatory [facility] Start: 06-18-2023 End: 06-18-2023 Emergency department patient visit JAQUAN L CRISTHIAN Facility:[facility] Start: 06-18-2023 End: 06-18-2023 ambulatory JAQUAN L CRISTHIAN Facility:[facility] Start: 06-18-2023 End: 06-18-2023 Patient encounter procedure Breanna Stern AMMONIA SOLUTION PREPARER.RADIOCOMMUNICATIONS TECHNICIAN Work Phone: General Surgery Comment on above: Sudden onset of sharon re abdominal pain (Primary Dx); Nausea and vomiting, unspecified vomiting type; PEG (percutaneous endoscopic gastrostomy) status (HCC) Start: 06-17-2023 Telephone encounter May Ramey APRN.RADIOCOMMUNICATIONS TECHNICIAN Work Phone: Pain Management Comment on above: Appointment Start: 06-17-2023 End: 06-30-2023 ambulatory Jaquan L Cristhian Facility:[id number] Start: 06-15-2023 Telephone encounter Deacon shahid MD Work Phone: General Surgery Comment on above: Patient Update; Umm ent Question Start: 06-14-2023 Telephone encounter Stephanie Sumner DO Work Phone: [facility] Start: 06-14-2023 End: 06-14-2023 ambulatory Jaquan L Cristhian Facility[facility] Afsaneh suarez Start: 06-10-2023 End: 06-15-2023 ambulatory Jaquan L Cristhian Facility:[id number] Start: 06-09-2023 End: 06-09-2023 [facility] Pablo Lebron PSYD Work Phone: Neurology Comment on above: ARSALAN (generalized anx iety disorder) (Primary Dx); Panic disorder without agoraphobia; Moderate recurrent major depression (HCC) Start: 06-06-2023 End: 06-09-2023 Evaluation and management of inpatient MAIDANA LUCY Facility:[facility] Start: 06-03-2023 End: 06-03-2023 ambulatory JAQUAN L CRISTHIAN Facility:[facility] Start: 06-02-2023 End: 06-02-2023 ambulatory Jaquan L Cristhian Facility:[facility] Afsaneh cárdenase Start: 06-01-2023 End: 06-01-2023 ambulatory Vic Ramos MD Work Phone: Pain Management Comment on above: Neuralgia and neurit is (Primary Dx); Gastroesophageal reflux disease without esophagitis; Median arcuate ligament syndrome (HCC); S/P gastric bypass Start: 06-01-2023 End: 06-01-2023 Telemedicine consultation with patient Vic Ramos MD Work Phone: [facility] Start: 05-31-2023 End: 06-09-2023 ambulatory Jaquan L Cristhian Facility:[id number] Start: 05-30-2023 End: 05-31-2023 Emergency department patient visit FOLLOW UP MANAGER-C Jaquan Morrow Work Phone: [facility] Work Phone: Start: 05-30-2023 Telephone encounter Deacon shahid MD Work Phone: General Surgery Start: 05-28-2023 End: 05-28-2023 Refill Kasie Avalos MD Work Phone: Gastroenterology Comment on above: Refill Request Medication Problem Start: 05-25-2023 End: 05-28-2023 Evaluation and management of inpatient DEACON KAT Facility:[facility] Start: 05-24-2023 Telephone encounter Deacon shahid MD Work Phone: General Surgery Comment on above: Patient Education; C are Coordinator - Other Start: 05-24-2023 End: 05-26-2023 ambulatory Mateusz Garcia Facility:[id number] Start: 05-20-2023 End: 05-20-2023 Emergency department patient visit TIFFANIE BELLA KEITH Facility:[facility] Start: 05-19-2023 End: 05-19-2023 ambulatory Jaquan L Cristhian Facility:[facility] Afsaneh suarez Start: 05-18-2023 Telephone encounter Deacon shahid MD Work Phone: General Surgery Comment on above: Received Outside Med ical Records Start: 05-18-2023 End: 05-22-2023 Evaluation and management of inpatient JAQUAN L CRISTHIAN Facility:[facility] Start: 05-17-2023 End: 05-17-2023 ambulatory Deacon Kat MD Work Phone: General Surgery Comment on above: Nausea and vomiting, unspecified vomiting type (Primary Dx) Start: 05-17-2023 End: 05-17-2023 Telemedicine consultation with patient Deacon Kat MD Work Phone: [facility] Start: 05-17-2023 End: 05-17-2023 Emergency department patient visit Ashutosh Albright [facility] Start: 05-17-2023 End: 05-19-2023 ambulatory Jaquan L Cristhian Facility:[id number] Start: 05-12-2023 End: 05-14-2023 ambulatory Moncho Trejo [facility] Start: 05-12-2023 End: 05-14-2023 Observation Moncho Trejo [facility] Start: 05-11-2023 End: 05-11-2023 Emergency department patient visit Mateusz Garcia [facility] Start: 05-10-2023 Telephone encounter Deacon shahid MD Work Phone: General Surgery Comment on above: Patient Question Start: 05-10-2023 End: 05-10-2023 ambulatory Jaquan L Cristhian Facility:[facility] Afsaneh suarez Start: 05-09-2023 End: 05-09-2023 Emergency department patient visit Mateusz Garcia [facility] Start: 05-07-2023 Telephone encounter Santa Hart RN Ambulatory Surgery Comment on above: Appointment (Cancel EGD) Start: 05-06-2023 End: 05-06-2023 Emergency department patient visit Mateusz FloresRenetta Garcia [facility] Start: 04-30-2023 End: 04-30-2023 ambulatory Jaquan L Cristhian Facility:[facility] Afsaneh erick Start: 04-28-2023 End: 04-28-2023 ambulatory JAQUAN L CRISTHIAN Facility:[facility] Start: 04-28-2023 End: 04-28-2023 Patient encounter procedure Kasie Avalos MD Work Phone: Gastroenterology Comment on above: Gastroesophageal ref lux disease, unspecified whether esophagitis present (Primary Dx); Constipation, unspecified constipation type Start: 04-20-2023 End: 04-20-2023 Office outpatient visit 10 minutes Sherry Magaña MD Work Phone: [facility] Comment on above: Median arcuate ligam ent syndrome (CMS/HCC) (Primary Dx) Start: 04-20-2023 End: 04-20-2023 ambulatory [facility] Start: 04-07-2023 End: 04-07-2023 Postop follow up visit related to original px Sherry Magaña MD Work Phone: [facility] Comment on above: Median arcuate ligam ent syndrome (CMS/HCC) (Primary Dx) Start: 04-07-2023 End: [facility]07[facility] Start: 04-07-2023 End: 04-07-2023 Admission to same day surgery center Deacon Kat MD Work Phone: Endocrinology BMI Comment on above: Bariatric surgery st atus (Primary Dx); Dietary zinc deficiency; Vitamin D deficiency Start: 04-07-2023 End: 04-07-2023 ambulatory JAQUAN L CRISTHIAN Facility:[facility] Start: 04-07-2023 End: 04-07-2023 Telemedicine consultation with patient Deacon Kat MD Work Phone: [facility] Start: 04-06-2023 End: 04-06-2023 Emergency department patient visit ZEYAD-C Jaquan Morrow Work Phone: [facility] Work Phone: Start: 04-02-2023 End: 04-02-2023 Emergency department patient visit Ashutosh Echeverriamarshall [facility] Start: 03-24-2023 End: 03-24-2023 ambulatory Jaquan Morrow Facility:[facility] Start: 03-16-2023 End: 03-20-2023 Evaluation and management of inpatient Melisa Barker MD Work Phone: [facility] 4 [facility] Comment on above: Abdominal pain (Prim reji Dx); Nausea and vomiting, unspecified vomiting type; History of gastric bypass; Median arcuate ligament syndrome (CMS/HCC) Start: 03-16-2023 End: 03-16-2023 Emergency department patient visit Earnest Jett [facility] Start: 03-15-2023 End: 03-15-2023 Emergency department patient visit Earnest Jett [facility] Start: 03-05-2023 End: 03-10-2023 Evaluation and management of inpatient Sherry Magaña MD Work Phone: [facility] 4 [facility] Comment on above: Median arcuate ligam ent syndrome (CMS/HCC) (Primary Dx) Start: 03-02-2023 End: 03-03-2023 ambulatory NO ASSIGNED PCP GENERIC PROVIDER [facility] Start: 03-02-2023 End: 03-02-2023 ambulatory NO ASSIGNED PCP [facility] Start: 03-02-2023 End: 03-02-2023 Encounter for other preprocedural examination NO ASSIGNED PCP [facility] Start: 02-13-2023 End: 02-13-2023 Emergency department patient visit FOLLOW UP MANAGER-C Jaquan Morrow Work Phone: [facility] Work Phone: Start: 02-12-2023 End: 02-12-2023 Emergency department patient visit NO ASSIGNED PCP GENERIC PROVIDER [facility] Start: 02-10-2023 End: 02-10-2023 ambulatory JAQUAN L CRISTHIAN Facility:[facility] Start: 02-03-2023 End: 02-03-2023 ambulatory Jaquan L Cristhian Facility:[facility] Start: 01-15-2023 Telephone encounter Deacon shahid MD Work Phone: Endocrinology BMI Comment on above: Patient Question; Pa beatrisnt Update Start: 01-14-2023 End: 01-14-2023 ambulatory Vic Ramos MD Work Phone: Pain Management Comment on above: Waitlist Start: 01-13-2023 End: 01-13-2023 Emergency department patient visit NO ASSIGNED PCP [facility] Start: 01-11-2023 Orders Only Vic Conner [...] patient Vic Ramos MD Work Phone: [facility] Start: 01-06-2023 Telephone encounter Vic saldana MD Work Phone: Pain Management Comment on above: Appointment Start: 12-31-2022 End: 12-31-2022 Emergency department patient visit Mateusz Garcia [facility] Start: 12-29-2022 End: 12-29-2022 ambulatory Jaquan L Cristhian [facility] [place] [facility] Start: 12-28-2022 Telephone encounter Deacon shahid MD Work Phone: General Surgery Comment on above: Patient Update; Suly tania Start: 12-21-2022 End: 12-21-2022 ambulatory [facility] Start: 12-14-2022 End: 12-14-2022 ambulatory Deacon Kat MD Work Phone: Endocrinology BMI Comment on above: Worsening Symptoms S evere Abdominal pain, unsp ecified abdominal location (Primary Dx) Start: 12-14-2022 End: 12-15-2022 Emergency department patient visit JAQUAN [facility] Start: 12-14-2022 End: 12-14-2022 Telemedicine consultation with patient Deacon Kat MD Work Phone: [facility] Start: 12-09-2022 ambulatory Jaquan L Cristhian Facility: [facility] [place] Start: 12-06-2022 End: 12-09-2022 Evaluation and management of inpatient SHANNA WOODS Facility:[facility] Start: 12-04-2022 End: 12-04-2022 Patient encounter procedure Agustin Zamorano MD Work Phone: General Surgery Comment on above: Generalized abdomina l pain (Primary Dx) Start: 12-04-2022 End: 12-04-2022 ambulatory JAQUAN L CRISTHIAN Facility:[facility] Start: 12-03-2022 Telephone encounter Oliva Dobbs RN General Surgery Start: 12-01-2022 Telephone encounter Deacon shahid MD Work Phone: Endocrinology BMI Comment on above: Patient Update Start: 12-01-2022 End: 12-01-2022 ambulatory Lokesh Terry Facility:[facility] [place] [facility] Start: 11-27-2022 End: 12-03-2022 Evaluation and management of inpatient YAYUVAL R MICHAEL [facility] Start: 11-26-2022 ambulatory DEACON KAT Facilit y:[facility] Start: 11-26-2022 End: 11-26-2022 Subsequent hospital visit by physician Jing/ [facility] Work Phone: CARDIOVASCULAR TESTING Comment on above: Chronic nausea [R11. 0] Start: 11-26-2022 End: 11-26-2022 ambulatory JAQUAN L CRISTHIAN Facility:[facility] Start: 11-25-2022 Telephone encounter [facility] Work Phone: Chronic Care Start: 11-25-2022 End: 11-25-2022 ambulatory Jaquan L Cristhian Facility:[facility] Afsaneh suarez Start: 11-23-2022 Telephone encounter Deacon shahid MD Work Phone: Endocrinology BMI Comment on above: Patient Update Start: 11-22-2022 End: 11-23-2022 ambulatory STEVE ADIBI Facility:[facility] Start: 11-17-2022 End: 11-17-2022 ambulatory Deacon Kat MD Work Phone: Endocrinology BMI Comment on above: On-Call Surgeon - Se nt to ER Start: 11-16-2022 End: 11-17-2022 Refill Deacon Kat MD Work Phone: Endocrinology BMI Start: 11-16-2022 End: 11-16-2022 Lab Drop off Jaquan L Cristhian [facility] Start: 11-14-2022 ambulatory Deacon sousa MD Work Phone: [facility] Start: 11-14-2022 Nutrition therapy Deacon turner MD Work Phone: Endocrinology BMI Comment on above: IV Nutrition Start: 11-13-2022 End: 11-13-2022 ambulatory PABLO LEBRON Facility:[facility] Start: 11-11-2022 End: 11-12-2022 ambulatory DEACON KAT Facility:[facility] Start: 11-10-2022 End: 11-10-2022 ambulatory JAQUAN L CRISTHIAN Facility:[facility] Start: 11-09-2022 Telephone encounter Deacon shahid MD Work Phone: Endocrinology BMI Comment on above: Surgery Rescheduled Start: 11-06-2022 ambulatory Agustin Sheets RT(R) [facility] Radiology Molecular Comment on above: Radiology [place] Start: 11-06-2022 Patient encounter procedure Agustin Baughum RT(R) [facility] Start: 11-06-2022 Telephone encounter Deacon shahid MD Work Phone: Endocrinology BMI Comment on above: Patient Update Start: 11-05-2022 End: 11-08-2022 ambulatory JAQUAN L CRISTHIAN Facility:[facility] Start: 11-04-2022 End: 11-04-2022 Patient encounter procedure Deacon Kat MD Work Phone: Endocrinology BMI Comment on above: Nausea (Primary Dx); RUQ pain; History of cholecystectomy Dehydration (Primary Dx); RUQ pain Right knee pain, uns pecified chronicity (Primary Dx) Start: 11-04-2022 End: 11-04-2022 ambulatory Rheu Chair 5 Jeanne Work Phone: Infusion Start: 11-04-2022 ambulatory [facility] Facility: [facility] Start: 11-04-2022 End: 11-04-2022 Subsequent hospital visit by physician [facility]ud[facility] Work Phone: [facility] Radiology Ultrasound Comment on above: Nausea [R11.0] Start: 11-04-2022 End: 11-04-2022 ambulatory JAQUAN L CRISTHIAN Facility:[facility] Start: 11-03-2022 End: 11-03-2022 ambulatory Jaquan L Cristhian Facility:[facility] [place] [facility] Start: 11-02-2022 Refill Haroon ahumada APRN.CNP Work Phone: Neurology Start: 11-02-2022 End: 11-02-2022 Emergency department patient visit DIMITRI WALKER [facility] Start: 11-02-2022 End: 11-02-2022 Emergency department patient visit Dimitri Walker MD Work Phone: [facility] Emergency Department Start: 11-01-2022 ambulatory Deacon sousa MD Work Phone: Endocrinology BMI Comment on above: Worsening Symptoms Problem Start: 10-31-2022 Refill Breanna Stern DARRYL Work Phone: General Surgery Comment on above: Refill Request Start: 10-31-2022 End: 10-31-2022 Emergency department patient visit [place] Lesia [facility] Start: 10-31-2022 End: 10-31-2022 Emergency department patient visit Jalyn Galvan Suresh Work Phone: [facility] ED Comment on above: Back strain, initial encounter (Primary Dx) Start: 10-29-2022 End: 11-30-2022 ambulatory Jaquan L Cristhian Facility:CD:[id number] Start: 10-27-2022 End: 10-27-2022 ambulatory JAQUAN L CRISTHIAN [facility] Start: 10-26-2022 End: 10-26-2022 ambulatory Jaquan L Cristhian Facility:[facility] [place] [facility] Start: 10-25-2022 End: 10-28-2022 ambulatory RAYNA R ZACH [facility] Start: 10-24-2022 ambulatory Deacon sousa MD Work Phone: Endocrinology BMI Comment on above: Symptoms Start: 10-23-2022 End: 10-23-2022 Emergency department patient visit WALLY Graf [facility] Start: 10-21-2022 End: 10-21-2022 ambulatory Jaquan L Cristhian Facility:[facility] [place] [facility] Start: 10-21-2022 End: 10-21-2022 Emergency department patient visit JAQUAN L CRISTHIAN Facility:[facility] Start: 10-20-2022 Telephone encounter Deacon shahid MD Work Phone: General Surgery Comment on above: Patient Question; Na usea & Vomiting Start: 10-20-2022 End: 10-20-2022 Emergency department patient visit Earnest Jett [facility] Start: 10-19-2022 ambulatory Breanna Stern AMMONIA SOLUTION PREPARERRenettaRADIOCOMMUNICATIONS TECHNICIAN Work Phone: General Surgery Comment on above: Worsening Symptoms Start: 10-19-2022 End: 10-19-2022 Emergency department patient visit Earnest Jett [facility] Start: 10-18-2022 Emergency department patient visit [facility] Facility:[facility] Start: 10-17-2022 End: 10-17-2022 Emergency department patient visit WALLY Lesia [facility] Start: 10-15-2022 Refill Kasie Avalos MD Work Phone: Gastroenterology Comment on above: Refill Request Start: 10-07-2022 End: 10-07-2022 ambulatory [facility] Facility:[facility] Start: 10-05-2022 End: 10-05-2022 Distance [facility] Pablo Lebron PSYD Work Phone: Neurology Comment on above: ARSALAN (generalized anx iety disorder) (Primary Dx); Panic disorder without agoraphobia; Moderate recurrent major depression (HCC) Start: 09-28-2022 End: 09-28-2022 ambulatory Xiomara Winnie GARLAND Work Phone: Endocrinology BMI Comment on above: Postoperative malabs orption (Primary Dx); S/P gastric bypass; Overweight (BMI 25.0-29.9); Dietary counseling and surveillance Start: 09-28-2022 End: 09-28-2022 Telemedicine consultation with patient Xiomara Terrymichael GARLAND Work Phone: [facility] Start: 09-22-2022 End: 09-22-2022 ambulatory JAQUAN L CRISTHIAN Facility:[facility] Start: 09-21-2022 End: 09-21-2022 [facility] Pablo Lebron PSYD Work Phone: Neurology Comment on above: ARSALAN (generalized anx iety disorder) (Primary Dx); Panic disorder without agoraphobia; Moderate recurrent major depression (HCC) Start: 09-18-2022 End: 09-18-2022 ambulatory JAQUAN MORROW Facility:[facility] Start: 09-18-2022 End: 09-18-2022 Patient encounter procedure Breanna Stern SLIMRenettaRADIOCOMMUNICATIONS TECHNICIAN Work Phone: General Surgery Comment on above: Encounter for surgic al aftercare following surgery of digestive system (Primary Dx); Impaired intestinal absorption; Esophageal dysphagia; Gastroesophageal reflux disease, unspecified whether esophagitis present; S/P bariatric surgery Start: 08-06-2022 ambulatory Kasie Avalos MD Work Phone: Gastroenterology Comment on above: Medication Coverage Start: 07-29-2022 End: 07-29-2022 Patient encounter procedure Rajni Rouse [facility] Start: 07-28-2022 End: 07-28-2022 Patient encounter procedure Samara Evans MD Work Phone: Dermatology Comment on above: Rash and nonspecific skin eruption (Primary Dx); Pain in eye, unspecified laterality; Facial edema Start: 07-27-[address] WALLY FOLEY . Facil ity:[facility] Start: 07-23-2022 Telephone encounter Kaise ejan MD Work Phone: Gastroenterology Comment on above: [...] End: 07-20-2022 Lab Drop off Jaquan Morrow [facility] Start: 06-18-2022 End: 06-18-2022 ambulatory Aliyah Wu QUIROZ Work Phone: [facility] Comment on above: Encounter to discuss test results (Primary Dx); NO SHOW Start: 06-18-2022 End: 06-18-2022 Telemedicine consultation with patient Aliyah Wu QUIROZ Work Phone: [facility] Start: 06-12-2022 End: 06-12-2022 Patient encounter procedure Aliyah Wu QUIROZ Work Phone: [facility] [place] Comment on above: Polyarthralgia (Prim reji Dx); Malaise and fatigue; Subjective fever; S/P laparoscopic sleeve gastrectomy; History of syncope; History of adrenal insufficiency; Hypothyroidism, unspecified type Start: 06-11-2022 End: 07-24-2022 Pre-admission assessment Rui Joyner [facility] Start: 06-10-2022 End: 06-10-2022 Emergency department patient visit Sanchojessenia Valles Jose Ramon [facility] Start: 06-09-2022 End: 06-09-[address] DOCTOR CARRERA Facility:[facility] Start: 05-22-2022 End: 05-23-[address] WALLY FOLEY . Facility:[facility] Start: 03-30-2022 ambulatory Breanna Stern APRN.RADIOCOMMUNICATIONS TECHNICIAN Work Phone: [facility] Start: 03-30-2022 Patient encounter procedure Breanna Stern APRN.RADIOCOMMUNICATIONS TECHNICIAN Work Phone: General Surgery Comment on above: Cancel Appointment C annot Reach Anyone Start: 03-06-2022 End: 03-06-2022 Subsequent hospital visit by physician Deacon Kat MD Work Phone: [facility] Endoscopy - ENDO Comment on above: Esophageal dysphagia [R13.19] Start: 03-05-2022 Telephone encounter Li márquez RN Work Phone: Endocrinology BMI Comment on above: EGD Instructions Start: 03-05-2022 End: 03-05-2022 ambulatory Breanna Jarred SMALLS.RADIOCOMMUNICATIONS TECHNICIAN Work Phone: General Surgery Comment on above: Esophageal dysphagia (Primary Dx); S/P gastric bypass; Postoperative malabsorption Start: 03-05-2022 End: 03-05-2022 Telemedicine consultation with patient Breanna Stern SLIM.RADIOCOMMUNICATIONS TECHNICIAN Work Phone: [facility] Start: 03-02-2022 End: 03-03-[address] WALLY FOLEY . Facility: Start: 02-17-2022 End: 02-18-[address] WALLY FOLEY . Facility: Start: 02-13-2022 End: 02-13-2022 Patient encounter procedure Kuldip Yousif MD Work Phone: [facility] Comment on above: Acetabular labrum te ar, right, subsequent encounter (Primary Dx) Start: 02-05-2022 Orders Only Deacon sousa MD Work Phone: Endocrinology BMI Comment on above: Postoperative pain Start: 02-04-2022 ambulatory Deacon sousa MD Work Phone: [facility] Start: 02-04-2022 Follow-up encounter Deacon shahid MD Work Phone: Endocrinology BMI Comment on above: Surgery Follow-Up Start: 02-04-2022 End: 02-04-2022 Admission to same day surgery center Nahed Tamez RD Work Phone: Nutrition Therapy Comment on above: S/P gastric surgery (Primary Dx); Dietary counseling Start: 02-04-2022 End: 02-04-2022 Telemedicine consultation with patient Nahed Tamez RD Work Phone: [facility] Start: 02-03-2022 End: 02-03-2022 Patient encounter procedure Breanna Jarred SMALLS.RADIOCOMMUNICATIONS TECHNICIAN Work Phone: General Surgery Comment on above: [...] Admission to establishment Pacc 2 Work Phone: [facility] Start: 01-28-2022 End: 01-28-2022 ambulatory [...] p. GJ revision) Start: 01-02-2022 End: 01-02-2022 [facility] Sabina Joy APRN.CNP Work Phone: General Surgery Comment on [...] Kat Start: 11-18-2021 Patient Update Breanna Stern APRN.RADIOCOMMUNICATIONS TECHNICIAN Work Phone: Endocrinology BMI Comment on above: Orders (pH Impedence ) Start: 11-17-2021 End: 11-17-2021 Telemedicine consultation with patient Deacon Kat MD Work Phone: [facility] Start: 11-17-2021 End: 11-17-2021 ambulatory Deacon Kat MD Work Phone: Endocrinology BMI Comment on above: Gastroesophageal ref lux disease without esophagitis (Primary Dx) Refill Request; Refi ll Request Start: 10-27-2021 End: 10-28-[address] WALLY FOLEY . Facility: Start: 10-21-2021 Telephone encounter Kuldip mckeon MD Work Phone: [facility] Comment on above: Appointment Start: 10-09-2021 End: 10-09-2021 [facility] Sabina Joy APRN.RADIOCOMMUNICATIONS TECHNICIAN Work Phone: General Surgery Comment on above: Gastroesophageal ref lux disease, unspecified whether esophagitis present (Primary Dx); Bariatric surgery status; Weight disorder; Class 1 obesity with serious comorbidity and body mass index (BMI) of 31.0 to 31.9 in adult, unspecified obesity type; S/P laparoscopic sleeve gastrectomy; Dietary counseling and surveillance Start: 10-08-2021 ambulatory Kuldip Yousif MD Work Phone[facility] Start: 10-08-2021 Patient encounter procedure Kuldip Yousif MD Work Phone: [facility] Comment on above: Appointment Time Tod ay Start: 10-04-2021 End: 10-05-[address] WALLY FOLEY . Facility: Start: 08-30-2021 End: 08-30-2021 Emergency department patient visit Pablo Atwood DO Work Phone: [facility] ED Comment on above: Dental infection (Pr imary Dx) Start: 08-29-2021 End: 08-29-2021 ambulatory Justine INMAN-C Work Phone: [facility] Comment on above: Tear of right acetab ular labrum, subsequent encounter (Primary Dx) Start: 08-29-2021 End: 08-29-2021 Telemedicine consultation with patient Justine INMAN-C Work Phone: [facility] [address] Start: 08-28-2021 Refill Justine INMAN-C Work Phone: [facility] Comment on above: Refill Request Start: 08-28-2021 End: 08-28-[address] Work Phone: General Surgery Comment on above: S/P laparoscopic sle dee dee gastrectomy (Primary Dx); Obesity, Class I, BMI 30-34.9; Dietary counseling and surveillance Start: 08-28-2021 End: 08-28-2021 Telemedicine consultation with patient Xiomara Martinez DADA Work Phone: [facility] Start: 08-25-2021 Encounter for genera l adult medical examination without abnormal findings SHANNA JUNE [facility] Start: 08-24-2021 ambulatory Deacon sousa MD Work Phone: Endocrinology BMI Comment on above: Possible Revision Di scussion Start: 08-22-2021 End: 08-22-2021 Refill Kasie Avalos MD Work Phone: Gastroenterology Comment on above: Refill Request Start: 08-22-2021 Telephone encounter Shanna Cooper hooks [facility] Start: 08-21-2021 End: 08-22-2021 Encounter for general adult medical examination without abnormal findings DR WALLY FOLEY . Facility:[facility] Start: 08-21-2021 End: 08-22-[address] WALLY FOLEY . Facility:[facility] Start: 08-19-2021 End: 08-20-[address] WALLY FOLEY . Facility:[facility] Start: 08-17-2021 End: 08-17-2021 ambulatory Shanna Granadosault Other [employer] Other Start: 08-17-2021 Office outpatient vi sit 15 minutes Shanna June [facility] Start: 08-14-2021 Refill Justine ardon PA-C Work Phone: [facility] Comment on above: Refill Request Start: 08-01-2021 End: 08-01-2021 ambulatory Justine Johnson Mele PA-C Work Phone: [facility] Comment on above: Tear of right acetab ular labrum, subsequent encounter (Primary Dx) Start: 08-01-2021 End: 08-01-2021 Telemedicine consultation with patient Justine Johnson Mele PA-C Work Phone: [facility] [address] Start: 07-30-2021 End: 07-30-[address] MARCOS ZURDO . Facility:[facility] Start: 07-28-2021 ambulatory Justine Caceres ac PA-C Work Phone: [facility] [address] Start: 07-28-2021 Patient encounter procedure Justine Shabazz PA-C Work Phone: [facility] Comment on above: Virtual Appointment Start: 07-27-2021 End: 07-27-2021 Emergency department patient visit Angela Do MD Work Phone: [facility] ED Comment on above: Generalized abdomina l pain (Primary Dx) Start: 07-14-2021 ambulatory Justine Johnson Banj ac PA-C Work Phone: [facility] Comment on above: Medication Start: 07-11-2021 End: 08-26-[address] DOCTOR CARRERA Facility:[facility] Start: 07-04-2021 End: 07-04-2021 ambulatory Justine Johnson Bangenec PA-C Work Phone: [facility] Comment on above: Tear of right acetab ular labrum, subsequent encounter (Primary Dx) Start: 07-04-2021 End: 07-04-2021 Telemedicine consultation with patient Justine Shabazz PA-C Work Phone: [facility] [address] Start: 06-23-2021 Admission to [facility] center Jace Duarte AT Work Phone: [facility] Comment on above: Schedule Surgery Start: 06-23-2021 ambulatory Jace solomon AT Work Phone: [facility] [address] Start: 06-18-2021 End: 06-18-2021 Patient encounter procedure Kuldip Yousif MD Work Phone: 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) Start: 04-02-2021 End: 04-02-2021 ambulatory Shanna June Other [facility] Other Start: 04-02-2021 Telephone encounter Shanna hooks [facility] Start: 03-31-2021 End: 03-31-2021 ambulatory Shanna June Other [facility] Other Start: 03-31-2021 Office outpatient vi sit 15 minutes Shanna June [facility] Start: 03-10-2021 End: 03-10-2021 ambulatory Shanna June Other [employer] Other Start: 03-10-2021 Telephone encounter Shanna hooks [facility] Start: 01-28-2021 End: 01-28-2021 ambulatory Shanna June Other [facility] Other Start: 01-28-2021 Office outpatient vi sit 15 minutes Shanna June [facility] Start: 12-17-2020 End: 12-17-2020 ambulatory Shanna June Other [employer] Other Start: 12-17-2020 Encounter for genera l adult medical examination without abnormal findings Shanna June [facility] Start: 12-17-2020 Periodic preventive med est patient 18-39 yrs Shanna June [facility] Start: 12-14-2020 End: 12-14-2020 Emergency department patient visit Shanna June AMMONIA SOLUTION PREPARER - FOLLOW UP MANAGER Work Phone: [facility] ED Comment on above: Contusion of right t humb without damage to nail, initial encounter (Primary Dx) Start: 12-09-2020 ambulatory LUCIE Foster lity:[facility] RE[facility] LOC Start: 07-02-2020 End: 07-02-2020 Emergency department patient visit Vaughn Ceja MD Work Phone: [facility] Emergency Department Start: 01-30-2020 End: 01-30-2020 Emergency department patient visit Agustin Gustafson Work Phone: [facility] Start: 09-25-2019 End: 08-04-2023 Preprocedural examination done Kuldip Yousif MD Work Phone: [facility] Work Phone: Start: 09-10-2017 End: 09-11-2017 Patient encounter DEFAULT PHYSICIAN Facility:[facility] Procedures Date Procedure Procedure Detail Performing Clinician Start: 08-26-2023 Esophagoscp rig transoral hypopharynx crv rene Avalos MD Work Phone: Start: 08-21-2023 Computed tomography of abdomen and pelvis with contrast FOLLOW UP MANAGER-C Jaquan Cristhian Work Phone: Start: 08-14-2023 Computed tomography of abdomen and pelvis with contrast FOLLOW UP MANAGER-C Jaquan Cristhian Work Phone: Start: 07-31-2023 Computed tomography of abdomen and pelvis with contrast FOLLOW UP MANAGER-C Jaquan Cristhian Work Phone: Start: 07-16-2023 Computed tomography of abdomen and pelvis with contrast FOLLOW UP MANAGER-C Jaquan Cristhian Work Phone: Start: 07-15-2023 Follow-up [...] panel - Blood by Automated count SHERRY MAGAÑA Start: 07-02-2023 RENAL FUNCTION PANEL SHERRY MAGAÑA Start: 07-02-2023 Glucose quantitative blood [...] in Serum or Plasma SHERRY MAGAÑA Start: 07-01-2023 Glucose quantitative blood xcpt reagent strip Dolores Cox MD Work Phone: Start: 07-01-2023 XR CHEST 1 VIEW [facility] Start: 07-01-2023 Glucose [Mass/volume] in Serum or Plasma [facility] Start: 07-01-2023 Glucose [Mass/volume] in Serum or Plasma [facility] Start: 07-01-2023 Radiologic exam chest single view Guanako Cox MD Work Phone: Start: 07-01-2023 Glucose quantitative blood xcpt reagent strip Dolores Cox MD Work Phone: Start: 07-01-2023 Glucose quantitative blood xcpt reagent strip Dolores Cox MD Work Phone: Start: 07-01-2023 Glucose [Mass/volume] in Serum or Plasma [facility] Start: 07-01-2023 Glucose quantitative blood xcpt reagent strip Dolores Cox MD Work Phone: Start: 07-01-2023 CBC panel - Blood by Automated count [facility] Start: 07-01-2023 Magnesium [Mass/volume] in Serum or Plasma [facility] Start: 07-01-2023 RENAL FUNCTION PANEL [facility] Start: 07-01-2023 Renal function panel Dolores Cox MD Work Phone: Start: 07-01-2023 BATH/SHOWER WITH CHLORHEXIDINE GLUCONATE [facility] Start: 06-30-2023 Glucose [Mass/volume] in Serum or Plasma [facility] Start: 06-30-2023 Glucose quantitative blood xcpt reagent strip Dolores Cox MD Work Phone: Start: 06-30-2023 MAY PARTICIPATE IN [facility] BRAY Start: 06-30-2023 IP CONSULT TO SPIRITUAL CARE [facility] Start: 06-30-2023 IP CONSULT TO NUTRITION SERVICES [facility] Start: 06-30-2023 IP CONSULT TO SOCIAL WORK [facility] Start: 06-30-2023 IP CONSULT TO RESPIRATORY CARE SHERRY CASTILLO Start: 06-30-2023 NOTIFY PROVIDER (DO NOT PROMPT FOR PARAMETERS) [facility] Start: 06-30-2023 [facility]SING COMMUNICATION [facility] Start: 06-30-2023 PULSE OXIMETRY, CONTINUOUS [facility] Start: 06-30-2023 ECG 12-LEAD [facility] Start: 06-30-2023 STAPHYLOCOCCUS AUREUS/MRSA COLONIZATION, CULTURE [facility] Start: 06-30-2023 Glucose [Mass/volume] in Serum or Plasma [facility] Start: 06-30-2023 CT ANGIO ABDOMEN PELVIS W AND/OR WO IV IV CONTRAST [facility] Start: 06-30-2023 VASC US MESENTERIC ARTERY DUPLEX COMPLETE [facility] Start: 06-30-2023 Glucose quantitative blood xcpt reagent strip Baldomero Woodard MD Work Phone: Start: 06-30-2023 Ct angio abd&plvis cntrst mtrl w/wo cntrst img Tiffanie Mandy Mendez AMMONIA SOLUTION PREPARER-RADIOCOMMUNICATIONS TECHNICIAN Work Phone: Start: 06-30-2023 Dup-scan artl tiara abdl/pel/scrot&/rpr orgn com Jamil Gavin MD Work Phone: Start: 06-30-2023 CBC panel - Blood by Automated count [facility] Start: 06-30-2023 Comprehensive metabolic 2000 panel - Serum or Plasma [facility] Start: 06-30-2023 Magnesium [Mass/volume] in Serum or Plasma [facility] Start: 06-30-2023 Phosphate [Mass/volume] in Serum or Plasma [facility] Start: 06-30-2023 Comprehensive metabolic panel Baldomero serrano MD Work Phone: Start: 06-30-2023 IP CONSULT TO VASCULAR SURGERY SHERRY CASTILLO Start: 06-30-2023 CENTRAL VENOUS LINE CAP CHANGE - ADULTS [facility] Start: 06-30-2023 CENTRAL VENOUS LINE DRESSING CHANGE - ADULT [facility] Start: 06-30-2023 CENTRAL VENOUS LINE TUBING CHANGE - ADULTS [facility] Start: 06-30-2023 IP CONSULT TO ACUTE CARE SURGERY [facility] Start: 06-30-2023 GASTRIC TUBE CARE [facility] Start: 06-30-2023 NOTIFY PROVIDER (PROMPT FOR PARAMETERS) [facility] Start: 06-30-2023 NURSING COMMUNICATION [facility] Start: 06-30-2023 NURSING COMMUNICATION - DO NOT USE IN ORDER SETS [facility] Start: 06-30-2023 POCT GLUCOSE METER [facility] Start: 06-30-2023 EXTRA URINE [place] [facility]UBE [facility] Start: 06-30-2023 HCG, URINE, QUALITATIVE [facility] Start: 06-30-2023 URINALYSIS WITH REFLEX CULTURE AND MICROSCOPIC [employer] [facility] Start: 06-30-2023 [facility] Start: 06-30-2023 ED TO FLOOR BED [facility] Start: 06-30-2023 EXTRA URINE [place] TUBE David Valadez DO Work Phone: Start: 06-30-2023 Urinalysis complete W Reflex Culture panel - Urine David Valadez DO Work Phone: Start: 06-30-2023 Urnls dip stick/tablet rgnt auto w/o microscopy David Valadez DO Work Phone: Start: 06-30-2023 CT ABDOMEN PELVIS WO IV CONTRAST [facility] Start: 06-29-2023 Ct abdomen & pelvis w/o contrast material David Valadez DO Work Phone: Start: 06-29-2023 Basic metabolic 2000 panel - Serum or Plasma [employer] ANA[facility] Start: 06-29-2023 CBC panel - Blood by Automated count [employer] [facility] Start: 06-29-2023 Glucose [Mass/volume] in Serum or Plasma [facility] Start: 06-29-2023 CBC W Auto Differential panel - Blood [employer] [facility] Start: 06-29-2023 Comprehensive metabolic 2000 panel - Serum or Plasma [facility] Start: 06-29-2023 Comprehensive metabolic panel David Dykes Daina rowland DO Work Phone: Start: 06-29-2023 Ecg routine ecg w/least 12 lds trcg only w/o i&r David Dykes Rory DO Work Phone: Start: 06-29-2023 End: 06-29-2023 Comprehensive metabolic panel David Dykes Daina rowland DO Work Phone: Start: 06-18-2023 Electrocardiogram JAQUAN CRISTHIAN Start: 05-30-2023 Computed tomography of abdomen and pelvis with contrast FOLLOW UP MANAGER-C Jaquan Zamoraab Work Phone: Start: 05-30-2023 Urine culture FOLLOW UP MANAGER-C Jaquan Cristhian Work Phone: Start: 05-25-2023 Esophagoscp rig transoral hypopharynx crv esoph Rajni Lue Start: 05-20-2023 Esophagoscp rig transoral hypopharynx crv esoph Rajni Lue Start: 05-12-2023 Esophagogastroduodenoscopy Moncho Amado zita Start: 04-06-2023 Computed tomography of abdomen and pelvis with contrast FOLLOW UP MANAGER-C Jaquan Zamoraab Work Phone: Start: 03-20-2023 DISCHARGE PATIENT [facility] Start: 03-19-2023 DISCHARGE PATIENT [facility] Start: 03-19-2023 Esophagogastroduodenoscopy [facility] [employer] Start: 03-19-2023 SURGICAL PATHOLOGY EXAM [facility] [employer] Start: 03-19-2023 Egd transoral biopsy single/multiple Deepika Roy AMMONIA SOLUTION PREPARER-RADIOCOMMUNICATIONS TECHNICIAN Work Phone: Start: 03-19-2023 CBC panel - Blood by Automated count [facility] Start: 03-19-2023 Comprehensive metabolic 2000 panel - Serum or Plasma [facility] Start: 03-19-2023 Comprehensive metabolic panel Tiffanie Cruz all AMMONIA SOLUTION PREPARER-RADIOCOMMUNICATIONS TECHNICIAN Work Phone: Start: 03-18-2023 CBC panel - Blood by Automated count [employer] Start: 03-18-2023 Comprehensive metabolic 2000 panel - Serum or Plasma [employer] Start: 03-18-2023 Comprehensive metabolic panel Tiffanie Cruz all AMMONIA SOLUTION PREPARER-RADIOCOMMUNICATIONS TECHNICIAN Work Phone: Start: 03-17-2023 XR CHEST 1 VIEW [facility] [employer] Start: 03-17-2023 Radiologic exam chest single view Tiffanie Mendez AMMONIA SOLUTION PREPARER-RADIOCOMMUNICATIONS TECHNICIAN Work Phone: Start: 03-17-2023 FL UPPER GI W DOUBLE CONTRAST W SMALL BOWEL FOLLOW THROUGH [employer] Start: 03-17-2023 Radiologic exam upr gi trc double contrast study Tiffanie Mendez AMMONIA SOLUTION PREPARER-RADIOCOMMUNICATIONS TECHNICIAN Work Phone: Start: 03-17-2023 XR CHEST 1 VIEW [employer] Start: 03-17-2023 Radiologic exam chest single view Tiffanie Mendez AMMONIA SOLUTION PREPARER-RADIOCOMMUNICATIONS TECHNICIAN Work Phone: Start: 03-17-2023 CBC panel - Blood by Automated count [employer] Start: 03-17-2023 Comprehensive metabolic 2000 panel - Serum or Plasma [employer] Start: 03-17-2023 ECG 12-LEAD [employer] Start: 03-17-2023 Comprehensive metabolic panel Tiffanie Cruz all AMMONIA SOLUTION PREPARERLogicBayRADIOCOMMUNICATIONS TECHNICIAN Work Phone: Start: 03-16-2023 CT ABDOMEN PELVIS W IV CONTRAST [facility] Start: 03-16-2023 Ct abdomen & pelvis w/contrast material Tiffanie Mendez APRN-RADIOCOMMUNICATIONS TECHNICIAN Work Phone: Start: 03-16-2023 ED TO FLOOR BED REQUEST [employer] Start: 03-16-2023 PULSE OXIMETRY, CONTINUOUS [employer] Start: 03-16-2023 TELEMETRY MONITORING [employer] Start: 03-16-2023 MEASURE HEIGHT [employer] Start: 03-16-2023 ORTHOSTATIC BLOOD PRESSURE [employer] Start: 03-16-2023 WEIGH PATIENT [employer] Start: 03-16-2023 ADMIT TO INPATIENT [employer] Start: 03-16-2023 CBC W Auto Differential panel - Blood [facility] Start: 03-16-2023 Comprehensive metabolic 2000 panel - Serum or Plasma [facility] Start: 03-16-2023 SARS-COV-2 AND INFLUENZA A/B PCR [facility] Start: 03-16-2023 PULSE OXIMETRY, CONTINUOUS Tiffanie Mendez AMMONIA SOLUTION PREPARER-RADIOCOMMUNICATIONS TECHNICIAN Work Phone: Start: 03-16-2023 Comprehensive metabolic panel Melisa lipscomb MD Work Phone: Start: 03-16-2023 Influenza virus A and B and SARS-CoV-2 (COVID-19) identified in Respiratory specimen by HANK with probe detection Melisa Barker MD Work Phone: Start: 03-10-2023 DISCHARGE PATIENT [facility] Start: 03-10-2023 DISCHARGE INSTRUCTIONS [facility] Start: 03-10-2023 Glucose [Mass/volume] in Serum or Plasma [facility] Start: 03-10-2023 Glucose quantitative blood xcpt reagent strip Dolores Cox MD Work Phone: Start: 03-10-2023 Glucose [Mass/volume] in Serum or Plasma [facility] Start: 03-10-2023 Glucose quantitative blood xcpt reagent strip Dolorse Cox MD Work Phone: Start: 03-10-2023 Basic metabolic 2000 panel - Serum or Plasma [facility] Start: 03-10-2023 CBC panel - Blood by Automated count [facility] Start: 03-10-2023 Glucose [Mass/volume] in Serum or Plasma [facility] Start: 03-10-2023 End: 03-10-2023 Basic metabolic panel calcium total Alicia Toro AMMONIA SOLUTION PREPARER-RADIOCOMMUNICATIONS TECHNICIAN Work Phone: Start: 03-10-2023 POCT GLUCOSE METER [facility] Start: 03-10-2023 Glucose [Mass/volume] in Serum or Plasma [facility] Start: 03-10-2023 Glucose quantitative blood xcpt reagent strip Dolores Cox MD Work Phone: Start: 03-09-2023 Glucose [Mass/volume] in Serum or Plasma [facility] Start: 03-09-2023 Glucose quantitative blood xcpt reagent strip Dolores Cox MD Work Phone: Start: 03-09-2023 Glucose [Mass/volume] in Serum or Plasma [facility] Start: 03-09-2023 Glucose quantitative blood xcpt reagent strip Dolores Cox MD Work Phone: Start: 03-09-2023 C. DIFFICILE, PCR [facility] Start: 03-09-2023 STOOL PATHOGEN PANEL, PCR [facility] Start: 03-09-2023 Glucose [Mass/volume] in Serum or Plasma [facility] Start: 03-09-2023 Iadna-dna/rna gi pthgn multiplex probe tq 6-11 Alicia Toro AMMONIA SOLUTION PREPARER-RADIOCOMMUNICATIONS TECHNICIAN Work Phone: Start: 03-09-2023 Inf agent det nucleic acid clostridium amp probe Alicia Toro AMMONIA SOLUTION PREPARER-RADIOCOMMUNICATIONS TECHNICIAN Work Phone: Start: 03-09-2023 IP CONSULT TO NUTRITION SERVICES [facility] Start: 03-09-2023 Glucose quantitative blood xcpt reagent strip Dolores Cox MD Work Phone: Start: 03-09-2023 Glucose [Mass/volume] in Serum or Plasma [facility] Start: 03-09-2023 ECG 12-LEAD [facility] Start: 03-09-2023 Basic metabolic 2000 panel - Serum or Plasma [facility] Start: 03-09-2023 CBC panel - Blood by Automated count [facility] Start: 03-09-2023 Glucose quantitative blood xcpt reagent strip Dolores Cox MD Work Phone: Start: 03-09-2023 Glucose [Mass/volume] in Serum or Plasma [facility] Start: 03-09-2023 Basic metabolic panel calcium total Alicia Toro AMMONIA SOLUTION PREPARER-[facility] Work Phone: Start: 03-09-2023 Glucose [Mass/volume] in Serum or Plasma [facility] Start: 03-09-2023 Glucose quantitative blood xcpt reagent strip Dolores Cox MD Work Phone: Start: 03-09-2023 Glucose quantitative blood xcpt reagent strip Dolores Cox MD Work Phone: Start: 03-09-2023 POCT GLUCOSE METER [facility] Start: 03-09-2023 Glucose [Mass/volume] in Serum or Plasma [facility] Start: 03-08-2023 Glucose quantitative blood xcpt reagent strip Dolores Cox MD Work Phone: Start: 03-08-2023 Glucose [Mass/volume] in Serum or Plasma SHERRY MAGAÑA Start: 03-08-2023 Glucose quantitative blood xcpt reagent strip Dolores Cox MD Work Phone: Start: 03-08-2023 Glucose [Mass/volume] in Serum or [facility] Start: 03-08-2023 Glucose quantitative blood xcpt reagent strip Dolores Cox MD Work Phone: Start: 03-08-2023 ECG 12-LEAD SHERRY MAGAÑA Start: 03-08-2023 Glucose [Mass/volume] in Serum or Plasma [facility] Start: 03-08-2023 Glucose quantitative blood xcpt reagent strip Dolores Cox MD Work Phone: Start: 03-08-2023 Basic metabolic 2000 panel - Serum or Plasma [facility] Start: 03-08-2023 CBC panel - Blood [facility] Autom[facility] Start: 03-08-2023 Glucose [Mass/volume] in Serum or Plasma [facility] Start: 03-08-2023 End: 03-08-2023 Basic metabolic panel calcium total Chrissy Harris PA-C Work Phone: Start: 03-08-2023 INSERT URETHRAL CATHETER ANA [facility] Start: 03-08-2023 POCT GLUCOSE METER [facility] Start: 03-08-2023 Glucose [Mass/volume] in Serum or Plasma [facility] Start: 03-08-2023 Glucose quantitative blood xcpt reagent strip Karma Sharpe MD Work Phone: Start: 03-07-2023 Glucose [Mass/volume] in Serum or Plasma [facility] Start: 03-07-2023 Glucose quantitative blood xcpt reagent strip Karma Sharpe MD Work Phone: Start: 03-07-2023 Glucose [Mass/volume] in Serum or Plasma [facility] Start: 03-07-2023 Glucose quantitative blood xcpt reagent strip Karma Sharpe MD Work Phone: Start: 03-07-2023 Glucose [Mass/volume] in Serum or Plasma [facility] Start: 03-07-2023 Glucose quantitative blood xcpt reagent strip Karma Sharpe MD Work Phone: Start: 03-07-2023 Glucose [Mass/volume] in Serum or Plasma [facility] Start: 03-07-2023 Glucose quantitative blood xcpt reagent strip Karma Sharpe MD Work Phone: Start: 03-07-2023 Basic metabolic 2000 panel - Serum or Plasma [facility] Start: 03-07-2023 CBC panel - Blood by Automated count [facility] Start: 03-07-2023 Glucose [Mass/volume] in Serum or Plasma [facility] Start: 03-07-2023 Basic metabolic panel calcium total Chrissy INMAN-C Work Phone: Start: 03-07-2023 RESPIRATORY CARE EVALUATION ONLY [facility] Start: 03-07-2023 Glucose quantitative blood xcpt reagent strip Karma Sharpe MD Work Phone: Start: 03-07-2023 POCT GLUCOSE METER [facility] Start: 03-07-2023 RESPIRATORY CARE EVALUATION ONLY Karma siegel MD Work Phone: Start: 03-07-2023 Glucose [Mass/volume] in Serum or Plasma [facility] Start: 03-06-2023 Glucose quantitative blood xcpt reagent strip Karma Sharpe MD Work Phone: Start: 03-06-2023 Glucose [Mass/volume] in Serum or Plasma [facility] Start: 03-06-2023 TELEMETRY MONITORING [facility] Start: 03-06-2023 Glucose quantitative blood xcpt reagent strip Karma Sharpe MD Work Phone: Start: 03-06-2023 TRANSFER PATIENT TO NEW UNIT [facility] Start: 03-06-2023 Glucose [Mass/volume] in Serum or Plasma [facility] Start: 03-06-2023 Glucose quantitative blood xcpt reagent strip Karma Sharpe MD Work Phone: Start: 03-06-2023 Glucose [Mass/volume] in Serum or Plasma [facility] Start: 03-06-2023 Glucose quantitative blood xcpt reagent strip Corie Head MD Work Phone: Start: 03-06-2023 Glucose [Mass/volume] in Serum or Plasma [facility] Start: 03-06-2023 XR CHEST 1 VIEW [facility] Start: 03-06-2023 Glucose quantitative blood xcpt reagent strip Corie Head MD Work Phone: Start: 03-06-2023 Radiologic exam chest single view Shona Foster AMMONIA SOLUTION PREPARER-RADIOCOMMUNICATIONS TECHNICIAN Work Phone: Start: 03-06-2023 Basic metabolic 2000 panel - Serum or Plasma [facility] Start: 03-06-2023 CBC panel - Blood by Automated count [facility] Start: 03-06-2023 Magnesium [Mass/volume] in Serum or Plasma [facility] Start: 03-06-2023 Phosphate [Mass/volume] in Serum or Plasma [facility] Start: 03-06-2023 Glucose [Mass/volume] in Serum or Plasma [facility] Start: 03-06-2023 Basic metabolic panel calcium total Chrissy Harris PA-C Work Phone: Start: 03-06-2023 Glucose quantitative blood xcpt reagent strip Corie Head MD Work Phone: Start: 03-06-2023 POCT GLUCOSE METER [facility] Start: 03-06-2023 PT EVAL AND TREAT [facility] Start: 03-06-2023 Glucose [Mass/volume] in Serum or Plasma [facility] Start: 03-05-2023 Glucose quantitative blood xcpt reagent strip Corie Head MD Work Phone: Start: 03-05-2023 Glucose [Mass/volume] in Serum or Plasma [facility] Start: 03-05-2023 Glucose quantitative blood xcpt reagent strip Corie Head MD Work Phone: Start: 03-05-2023 Glucose [Mass/volume] in Serum or Plasma [facility] Start: 03-05-2023 Basic metabolic 2000 panel - Serum or Plasma [facility] Start: 03-05-2023 CBC panel - Blood by Automated count [facility] Start: 03-05-2023 Magnesium [Mass/volume] in Serum or Plasma [facility] Start: 03-05-2023 Phosphate [Mass/volume] in Serum or [facility] Start: 03-05-2023 XR CHEST 1 VIEW [facility] Start: 03-05-2023 POCT GLUCOSE METER [facility] Start: 03-05-2023 MEASURE HEIGHT [facility] Start: 03-05-2023 WEIGH PATIENT [facility] Start: 03-05-2023 FULL CODE ANA [facility] Start: 03-05-2023 Glucose quantitative blood xcpt reagent strip Corie Head MD Work Phone: Start: 03-05-2023 ADMIT TO INPATIENT [facility] MAGAÑA Start: 03-05-2023 TRANSFER PATIENT TO NEW UNIT [facility] Start: 03-05-2023 Basic metabolic panel calcium total Desmond Tirado PA-C Work Phone: Start: 03-05-2023 Radiologic exam chest single view Desmond Tirado PA-C Work Phone: Start: 03-05-2023 PULSE OXIMETRY, CONTINUOUS [facility] Start: 03-05-2023 [facility] Start: 03-05-2023 PULSE OXIMETRY, CONTINUOUS Serena George DO Work Phone: Start: 03-05-2023 Level iii surg pathology gross&microscopic exam Sherry Magaña MD Work Phone: Start: 03-05-2023 End: 03-05-2023 Unlisted px abdomen musculoskeletal system Sherry Magaña MD Work Phone: Start: 03-05-2023 VERAB/VERIFY SHAYY MAGAÑA Start: 03-05-2023 XR CHEST 1 VIEW [facility] Start: 03-05-2023 VERAB/VERIFY SHAYY Magaña MD Work Phone: Start: 03-05-2023 Radiologic exam chest single view Edmund opher A George DO Work Phone: Start: 03-02-2023 Basic metabolic 2000 panel - Serum or Plasma NO GENERIC PROVIDER Start: 03-02-2023 TYPE AND SCREEN NO GENERIC PROVIDER Start: 03-02-2023 STAPHYLOCOCCUS AUREUS/MRSA COLONIZATION, CULTURE [facility] Start: 02-13-2023 Computed tomography of abdomen and pelvis with contrast FOLLOW UP MANAGER-C Jaquan Morrow Work Phone: Start: 02-12-2023 CBC [...] GENERIC PROVIDER Start: 01-14-2023 ECG 12-LEAD [facility] Start: 01-14-2023 VASC US MESENTERIC ARTERY DUPLEX COMPLETE [facility] Start: 01-14-2023 [facility] Start: 01-13-2023 HCG, URINE, QUALITATIVE [facility] Start: 01-13-2023 URINALYSIS WITH REFLEX MICROSCOPIC [facility] Start: 01-13-2023 CBC W Auto Differential panel - Blood [facility] Start: 01-13-2023 Comprehensive metabolic 2000 panel - Serum or Plasma [facility] Start: 11-26-2022 Dup-scan artl tiara abdl/pel/scrot&/rpr orgn com Deacon Kat MD Work Phone: Start: 11-11-2022 Antibody screen JAQUAN MORROW Comment on above: Order Comment: Specimen Type: BLOOD SPEC IMENOrdering Facility: [facility] Address: [address] [place] [id number] Performed By: #### T SCR ####[facility] BLOOD BANKCLIA [id number] [address] [place] Start: 11-11-2022 Ercp [...] History of Tan-en-Y gastric bypass Breanna Stern AMMONIA SOLUTION PREPARER.RADIOCOMMUNICATIONS TECHNICIAN Work Phone: Start: 03-06-2022 Esophagoscp rig transoral hypopharynx crv esoph Breanna Stern AMMONIA SOLUTION PREPARER.RADIOCOMMUNICATIONS TECHNICIAN Work Phone: Start: 01-29-2022 Revision - value [...] of 2) Zoster Vaccines (1 of 2) [facility] Start: 09-21-2026 DTaP/Tdap/Td vaccine (2 - Td or Tdap) DTaP/Tdap/Td vaccine (2 - Td or Tdap) [facility] Start: 09-21-2026 DTaP/Tdap/Td Vaccines (2 - Td or Tdap) DTaP/Tdap/Td Vaccines (2 - Td or Tdap) [facility] Start: 09-21-2026 Tetanus vaccination [facility] Start: 09-21-2026 Urine microalbumin profile [facility] Start: 08-08-2024 BP Controlled (<130/80) BP Controlled (<130/80) [facility] Start: 07-02-2024 Diabetes mellitus screening Diabetes Screening [facility] Start: 04-27-2024 BP Controlled (<130/80) BP Controlled (<130/80) [facility] in Start: 03-10-2024 Diabetes mellitus screening Diabetes Screening [facility] Start: 01-21-2024 End: 01-21-2024 Patient encounter procedure 01/21/2024 4:40 PM EST Office Visit Dermatology [address] [address] Samara Evans MD [address] [place] [address] new tiny black spots on hand & arm Dermatology Comment on above: new tiny black spots on hand & arm Start: 12-05-2023 BP Controlled (<130/80) BP Controlled (<130/80) [facility] Start: 11-27-2023 BP Controlled (<130/80) BP Controlled (<130/80) [facility] Start: 11-17-2023 End: 11-17-2023 Patient encounter procedure 11/17/2023 10:20 AM EDT Office Visit Gastroenterology [address] [address] Kasie Avalos MD [address] [place] [address] FOLLOW UP Gastroenterology Comment on above: FOLLOW UP Start: 11-01-2023 End: 11-01-2023 Patient encounter procedure 11/01/2023 8:00 AM EDT Appointment Gastroenterology [address] [address] Chichi Miller MD [address] [place] [address] Multiple gastric ulcers [K25.9] Gastroenterology Comment on above: Multiple gastric ulcers [K25.9] Start: 10-27-2023 Thyroid stimulating hormone measurement TSH Level [facility] Start: 10-20-2023 End: 10-20-2023 Admission to same day surgery center 10/20/2023 2:45 PM EDT - 10/20/2023 4:45 PM EDT Surgery [facility] Operating Room [address] [place] [address] Deacon Kat MD [address] [place] [id number] LAPAROSCOPY DIAGNOSTIC [facility] Operating Room Comment on above: LAPAROSCOPY DIAGNOSTIC Start: 10-20-2023 End: 10-20-2023 Laps abd prtm&omentum dx w/wo spec br/wa spx LAPAROSCOPY DIAGNOSTIC Chronic abdominal pain History of gastric bypass Pre-op testing 10/20/2023 2:45 PM EDT [facility] OR Start: 10-20-2023 Subsequent hospital visit by physician 10/20/2023 2:45 PM EDT Hospital Encounter [facility] Operating Room [address] [place] [address] Deacon Kat MD [address] [place] [id number] Chronic abdominal pain [R10.9, G89.29], History of gastric bypass [Z98.84], Pre-op testing [Z01.818] [facility] Operating Room Comment on above: Chronic abdominal pain [R10.9, G89.29], History of gastric bypass [Z98.84], Pre-op testing [Z01.818] Start: 10-17-2023 Influenza vaccination [facility] Start: 10-13-2023 End: 10-13-2023 Patient encounter procedure Gastroenterology Comment on above: cgrt page [id number] Start: 10-13-2023 End: 10-13-2023 ambulatory 10/13/2023 12:00 PM EDT Education Gastroenterology [address] [address] [facility], [facility] [address] [place], [place] [id number] cgrt page [id number] Gastroenterology Comment on above: rt page [id number] Start: 09-30-2023 End: 09-30-2023 Patient encounter procedure 09/30/2023 2:00 PM EDT Office Visit Allergy [address] [place] [id number] Sara Velasquez MD [address] [place] [address] Facial swelling [R22.0] Allergy Comment on above: Facial swelling [R22.0] Start: 09-22-2023 End: 09-22-2023 Patient encounter procedure 09/22/2023 9:40 AM EDT Office Visit Dermatology [address] [address] Samara Evans MD [address] [place] [address] new tiny black spots on hand & arm Dermatology Comment on above: new tiny black spots on hand & arm Start: 09-09-2023 End: 09-09-2023 Patient encounter procedure 09/09/2023 2:00 PM EDT Office Visit Allergy [address] [place] [address] Sara Velasquez MD [address] [place] [address] Facial swelling [R22.0] Allergy Comment on above: Facial swelling [R22.0] Start: 09-08-2023 End: 09-08-2023 Patient encounter procedure 09/08/2023 10:40 AM EDT Office Visit Gastroenterology [address] [address] Kasie Avalos MD [address] [place] [address] 3 month f/u Gastroenterology Comment on above: 3 month f/u Start: 09-03-2023 End: 09-03-2023 Patient encounter procedure 09/03/2023 12:45 PM EDT Office Visit Pulmonary Medicine [address] [place] [address] Alan Jurado MD [address] [place] [address] Follow-up of left lower lobe pneumonia Pulmonary Medicine Comment on above: Follow-up of left lower lobe pneumonia Start: 08-30-2023 End: 08-30-2023 Nursing evaluation of patient and report Gastroenterology Comment on above: Gastroesophageal reflux disease, unspeci fied whether esophagitis present [K21.9] Start: 08-26-2023 End: 08-26-2023 Nursing evaluation of patient and report 08/26/2023 3:00 PM EDT Nurse Visit Gastroenterology [address] [address] 2, Nurse Gi Lab [address] [place] [address] Gastroesophageal reflux disease, unspecified whether esophagitis present [K21.9] Gastroenterology Comment on above: Gastroesophageal reflux disease, unspeci fied whether esophagitis present [K21.9] Start: 08-26-2023 End: 08-26-2023 Patient encounter procedure 08/26/2023 3:00 PM EDT Appointment Gastroenterology [address] [address] [place] [address] [place] [address] Gastroesophageal reflux disease, unspecified whether esophagitis present [K21.9] Gastroenterology Comment on above: Gastroesophageal reflux disease, unspeci fied whether esophagitis present [K21.9] Start: 08-09-2023 End: 08-09-2023 Patient encounter procedure 08/09/2023 2:00 PM EDT Office Visit Pain Management [address] [place], [place] [id number] Vic Ramos MD [address] [place] [address] follow up Pain Management Comment on above: follow up Start: 08-09-2023 End: 08-09-2023 Follow-up encounter 08/09/2023 9:00 AM EDT [facility] Neurology [address] [place] [address] Pablo Lebron, PSMARIAMA [address] [place], [place] [id number] follow up Neurology Comment on above: follow up Start: 08-04-2023 End: 08-04-2023 Patient encounter procedure 08/04/2023 9:00 AM EDT Office Visit Pain Management [address] [place] [address] Boogie Murguia MD [address] [address] medication refill (ketamine) Pain Management Comment on above: medication refill (ketamine) Start: 07-28-2023 End: 07-28-2023 Patient encounter procedure 07/28/2023 10:00 AM EDT Office Visit Gastroenterology [address] [address] Kasie Avalos MD [address] [place], [place] [id number] 3 month f/u Gastroenterology Comment on above: 3 month f/u Start: 07-22-2023 End: 07-22-2023 Patient encounter procedure 07/22/2023 9:30 AM EDT Office Visit Colorectal Surgery [address] [address] La Montes De Oca, SLIM.RADIOCOMMUNICATIONS TECHNICIAN [address] [place] [address] Constipation, unspecified constipation type [K59.00] Colorectal Surgery Comment on above: Constipation, unspecified constipation t ype [K59.00] Start: 07-22-2023 End: 07-22-2023 Admission to same day surgery center 07/22/2023 9:00 AM EDT Procedure Colorectal Surgery [address] [address] La Montes De Oca, SLIM.RADIOCOMMUNICATIONS TECHNICIAN [address] [place] [address] Constipation, unspecified constipation type [K59.00] Colorectal Surgery Comment on above: Constipation, unspecified constipation t ype [K59.00] Start: 07-22-2023 End: 07-22-2023 Nursing evaluation of patient and report 07/22/2023 8:00 AM EDT Nurse Visit Gastroenterology [address] [address] Lab, Nurse Gi I [address] [facility] [place] [address] Gastroesophageal reflux disease, unspecified whether esophagitis present [K21.9] Gastroenterology Comment on above: Gastroesophageal reflux disease, unspeci fied whether esophagitis present [K21.9] Start: 07-20-2023 End: 07-20-2023 Professional / ancillary services management 07/20/2023 2:00 PM EDT Ancillary Procedure [facility] [address] [address] [address] [facility] Start: 07-20-2023 End: 07-20-2023 Nursing evaluation of patient and report 07/20/2023 1:30 PM EDT Nurse Visit Gastroenterology [address] [address] Lab, Nurse Gi I [address] [place] [address] Gastroesophageal reflux disease, unspecified whether esophagitis present [K21.9] Gastroenterology Comment on above: Gastroesophageal reflux disease, unspeci fied whether esophagitis present [K21.9] Start: 07-20-2023 End: 07-20-2023 Patient encounter procedure Gastroenterology Comment on above: Gastroesophageal reflux disease, unspeci fied whether esophagitis present [K21.9] Start: 07-17-2023 [facility] Start: 07-17-2023 Referral to general surgeon [facility] Start: 07-17-2023 Hospital admission [facility] Start: 07-15-2023 End: 07-15-2023 Patient encounter procedure 07/15/2023 3:15 PM EDT Office Visit Pain Management [address] [place] [address] Vic Ramos MD [address] [place] [address] est Pain Management Comment on above: est Start: 07-15-2023 End: 07-15-2023 Patient encounter procedure 07/15/2023 7:30 AM EDT Office Visit Pain Management [address] [place] [address] May Ramey APRN.RADIOCOMMUNICATIONS TECHNICIAN [address] [place] [address] Needs medication, unknown who can order Pain Management Comment on above: Needs medication, unknown who can order Start: 07-09-2023 End: 07-09-2023 Follow-up encounter 07/09/2023 9:00 AM EDT [facility] Neurology [address] [facility] [address] [place] [address] Pablo Lebron, PSYD [address] [place] [address] follow up Neurology Comment on above: follow up Start: 07-07-2023 End: 07-07-2023 Patient encounter procedure 07/07/2023 10:30 AM EDT Office Visit Colorectal Surgery [address] [address] Vonda Hercules PA-C [address] [place] [address] Constipation, unspecified constipation type [K59.00] Colorectal Surgery Comment on above: Constipation, unspecified constipation t ype [K59.00] Start: 07-07-2023 End: 07-07-2023 Admission to same day surgery center 07/07/2023 10:00 AM EDT Procedure Colorectal Surgery [address] [address] Vonda Hercules PA-C [address] [place] [address] Constipation, unspecified constipation type [K59.00] Colorectal Surgery Comment on above: Constipation, unspecified constipation t ype [K59.00] Start: 06-23-2023 End: 06-23-2023 Patient encounter procedure 06/23/2023 9:00 AM EDT Office Visit Plastic Surgery [address] [address] Juana Padilla APRN.RADIOCOMMUNICATIONS TECHNICIAN [address] [place] [address] CONSULT FOR SKIN REMOVAL WEIGHT LOSS SURGERY PROVIDER LISSET KAT [facility] 01/2022 @ [facility] Plastic Surgery Comment on above: CONSULT FOR SKIN REMOVAL WEIGHT LOSS RED [place] PROVIDER LISSET KAT [facility] 01/2022 @ [facility] Start: 06-18-2023 End: 06-18-2023 Follow-up encounter 06/18/2023 4:00 PM EDT [facility] Pain Management [address] [place] [address] Vic Ramos MD [address] [place] [address] Hospital Follow Up chronic pain Pain Management Comment on above: Hospital Follow Up chronic pain Start: 06-18-2023 End: 06-18-2023 Patient encounter procedure 06/18/2023 10:00 AM EDT Office Visit General Surgery [address] [address] [facility] [address] [place] [address] Breanna Stern APRN.RADIOCOMMUNICATIONS TECHNICIAN [address] [place] [address] Post PEG-J placement General Surgery Comment on above: Post PEG-J placement Start: 06-15-2023 End: 06-15-2023 Patient encounter procedure 06/15/2023 11:00 AM EDT Office Visit General Surgery [address] [address] [facility] [address] [place] [address] Breanna Stern APRN.RADIOCOMMUNICATIONS TECHNICIAN [address] [place] [address] Post PEG-J placement General Surgery Comment on above: Post PEG-J placement Start: 06-13-2023 BP CONTROLLED (<130/80) BP CONTROLLED (<130/80) [facility] Start: 05-30-2023 Bacteria identified in Urine by Culture [facility] Start: 04-12-2023 End: 04-12-2023 Telemedicine consultation with patient 04/12/2023 9:00 AM EST Telemedicine [facility] [address] [address] [facility] [address] [place] [address] [place] [address] [place] [address] [facility] Start: 11-23-2022 End: 11-24-2023 US MESENTERIC ARTERY CMPLT VAS LAB US MESENTERIC ARTERY CMPLT VAS LAB Vascular Lab [place] Chronic nausea RUQ pain Expected: 11/23/2022, Expires: 11/24/2023 [place] Work Phone: Comment on above: Expected: 11/23/2022, Expires: Start: 11-18-2022 End: 01-18-2023 25-hydroxyvitamin D3 [Mass/volume] in Serum or Plasma VITAMIN D 25 HYDROXY Lab Routine S/P bariatric surgery Impaired intestinal absorption Expected: 11/18/2022 (Approximate), Expires: 01/18/2023 [place] Work Phone: Comment on above: Expected: 11/18/2022 (Approximate), Expi res: 01/18/2023 Start: 11-18-2022 End: 01-18-2023 CBC panel - Blood by Automated count CBC Lab Routine S/P bariatric surgery Impaired intestinal absorption Expected: 11/18/2022 (Approximate), Expires: 01/18/2023 [place] Work Phone: Comment on above: Expected: 11/18/2022 (Approximate), Expi res: 01/18/2023 Start: 11-18-2022 End: 01-18-2023 Cobalamin (Vitamin B12) [Mass/volume] in Serum or Plasma VITAMIN B12 BLOOD Lab Routine S/P bariatric surgery Impaired intestinal absorption Expected: 11/18/2022 (Approximate), Expires: 01/18/2023 [place] Work Phone: Comment on above: Expected: 11/18/2022 (Approximate), Expi res: 01/18/2023 Start: 11-18-2022 End: 01-18-2023 Comprehensive metabolic 2000 panel - Serum or Plasma COMP METABOLIC PANEL Lab Routine S/P bariatric surgery Impaired intestinal absorption Expected: 11/18/2022 (Approximate), Expires: 01/18/2023 [place] Work Phone: Comment on above: Expected: 11/18/2022 (Approximate), Expi res: 01/18/2023 Start: 11-18-2022 End: 01-18-2023 Ferritin [Mass/volume] in Serum or Plasma FERRITIN BLD Lab Routine S/P bariatric surgery Impaired intestinal absorption Expected: 11/18/2022 (Approximate), Expires: 01/18/2023 [place] Work Phone: Comment on above: Expected: 11/18/2022 (Approximate), Expi res: 01/18/2023 Start: 11-18-2022 End: 01-18-2023 Folate [Mass/volume] in Serum or Plasma FOLATE SERUM Lab Routine S/P bariatric surgery Impaired intestinal absorption Expected: 11/18/2022 (Approximate), Expires: 01/18/2023 [place] Work Phone: Comment on above: Expected: 11/18/2022 (Approximate), Expi res: 01/18/2023 Start: 11-18-2022 End: 01-18-2023 Iron and Iron binding capacity panel - Serum or Plasma IRON + TIBC Lab Routine S/P bariatric surgery Impaired intestinal absorption Expected: 11/18/2022 (Approximate), Expires: 01/18/2023 [place] Work Phone: Comment on above: Expected: 11/18/2022 (Approximate), Expi res: 01/18/2023 Start: 11-18-2022 End: 01-18-2023 Parathyrin.intact [Mass/volume] in Serum or Plasma PTH INTACT BLD Lab Routine S/P bariatric surgery Impaired intestinal absorption Expected: 11/18/2022 (Approximate), Expires: 01/18/2023 [place] Work Phone: Comment on above: Expected: 11/18/2022 (Approximate), Expi res: 01/18/2023 Start: 11-18-2022 End: 01-18-2023 Retinol [Mass/volume] in Serum or Plasma VITAMIN A/RETINOL Lab Routine S/P bariatric surgery Impaired intestinal absorption Expected: 11/18/2022 (Approximate), Expires: 01/18/2023 [place] Work Phone: Comment on above: Expected: 11/18/2022 (Approximate), Expi res: 01/18/2023 Start: 11-18-2022 End: 01-18-2023 VITAMIN B1 (THIAMINE), WHOLE BLOOD VITAMIN B1 (THIAMINE), WHOLE BLOOD Lab Routine S/P bariatric surgery Impaired intestinal absorption Expected: 11/18/2022 (Approximate), Expires: 01/18/2023 [place] Work Phone: Comment on above: Expected: 11/18/2022 (Approximate), Expi res: 01/18/2023 Start: 11-18-2022 End: 01-18-2023 Zinc [Mass/volume] in Serum or Plasma ZINC BLD Lab Routine S/P bariatric surgery Impaired intestinal absorption Expected: 11/18/2022 (Approximate), Expires: 01/18/2023 [place] Work Phone: Comment on above: Expected: 11/18/2022 (Approximate), Expi res: 01/18/2023 Start: 11-04-2022 End: 01-04-2023 Amylase [Enzymatic activity/volume] in Serum or Plasma [place] Work Phone: Comment on above: Expected: 11/04/2022, Expires: 3 Start: 11-04-2022 End: 01-04-2023 Lipase [Enzymatic activity/volume] in Serum or Plasma [place] Work Phone: Comment on above: Expected: 11/04/2022, Expires: 3 Start: 10-16-2022 Covid-19 Vaccine (2022- season) Covid-19 Vaccine () [facility] Start: 10-16-2022 Influenza vaccination [facility] Start: 09-15-2022 Influenza vaccination Flu vaccine (#1) [facility] Start: 07-28-2022 End: 09-27-2022 CBC W Auto Differential panel - Blood CBC + DIFF Lab Routine Rash and nonspecific skin eruption Expected: 07/28/2022, Expires: 09/27/2022 [place] Work Phone: Comment on above: Expected: 07/28/2022, Expires: 3 Start: 07-28-2022 End: 09-27-2022 Comprehensive metabolic 2000 panel - Serum or Plasma COMP METABOLIC PANEL Lab Routine Rash and nonspecific skin eruption Facial edema Expected: 07/28/2022, Expires: 09/27/2022 [place] Work Phone: Comment on above: Expected: 07/28/2022, Expires: 3 Start: 06-12-2022 End: 08-12-2022 MISAEL BY IFA WITH REFLEX [place] Work Phone: Comment on above: Expected: 06/12/2022, Expires: 3 Start: 06-12-2022 End: 08-12-2022 Borrelia burgdorferi IgG and IgM panel - Serum [place] Work Phone: Comment on above: Expected: 06/12/2022, Expires: 3 Start: 06-12-2022 End: 08-12-2022 Cyclic citrullinated peptide IgG Ab [Units/volume] in Serum or Plasma [place] Work Phone: Comment on above: Expected: 06/12/2022, Expires: 3 Start: 06-12-2022 End: 08-12-2022 MONOCLONAL PROTEIN, SERUM (BLOOD) [place] Work Phone: Comment on above: Expected: 06/12/2022, Expires: 3 Start: 06-12-2022 End: 08-12-2022 Niacin [Mass/volume] in Serum or Plasma [place] Work Phone: Comment on above: Expected: 06/12/2022, Expires: 3 Start: 06-12-2022 End: 08-12-2022 PROTEIN ELECTROPHORESIS SERUM W/INTERP [place] Work Phone: Comment on above: Expected: 06/12/2022, Expires: 3 Start: 06-12-2022 End: 08-12-2022 Pyridoxine [Mass/volume] in Serum or Plasma [place] Work Phone: Comment on above: Expected: 06/12/2022, Expires: 3 Start: 06-12-2022 End: 08-12-2022 VITAMIN B1 (THIAMINE), WHOLE BLOOD [place] Work Phone: Comment on above: Expected: 06/12/2022, Expires: Start: 05-03-2022 End: 07-03-2022 25-hydroxyvitamin D3 [Mass/volume] in Serum or Plasma VITAMIN D 25 HYDROXY Lab Routine S/P gastric bypass Postoperative malabsorption Expected: 05/03/2022 (Approximate), Expires: 07/03/2022 [place] Work Phone: Comment on above: Expected: 05/03/2022 (Approximate), Expi res: 07/03/2022 Start: 05-03-2022 End: 07-03-2022 CBC panel - Blood by Automated count CBC Lab Routine S/P gastric bypass Postoperative malabsorption Expected: 05/03/2022 (Approximate), Expires: 07/03/2022 [place] Work Phone: Comment on above: Expected: 05/03/2022 (Approximate), Expi res: 07/03/2022 Start: 05-03-2022 End: 07-03-2022 Cobalamin (Vitamin B12) [Mass/volume] in Serum or Plasma VITAMIN B12 BLOOD Lab Routine S/P gastric bypass Postoperative malabsorption Expected: 05/03/2022 (Approximate), Expires: 07/03/2022 [place] Work Phone: Comment on above: Expected: 05/03/2022 (Approximate), Expi res: 07/03/2022 Start: 05-03-2022 End: 07-03-2022 Comprehensive metabolic 2000 panel - Serum or Plasma COMP METABOLIC PANEL Lab Routine S/P gastric bypass Postoperative malabsorption Expected: 05/03/2022 (Approximate), Expires: 07/03/2022 [place] Work Phone: Comment on above: Expected: 05/03/2022 (Approximate), Expi res: 07/03/2022 Start: 05-03-2022 End: 07-03-2022 Ferritin [Mass/volume] in Serum or Plasma FERRITIN BLD Lab Routine S/P gastric bypass Postoperative malabsorption Expected: 05/03/2022 (Approximate), Expires: 07/03/2022 [place] Work Phone: Comment on above: Expected: 05/03/2022 (Approximate), Expi res: 07/03/2022 Start: 05-03-2022 End: 07-03-2022 Folate [Mass/volume] in Serum or Plasma FOLATE SERUM Lab Routine S/P gastric bypass Postoperative malabsorption Expected: 05/03/2022 (Approximate), Expires: 07/03/2022 [place] Work Phone: Comment on above: Expected: 05/03/2022 (Approximate), Expi res: 07/03/2022 Start: 05-03-2022 End: 07-03-2022 Iron and Iron binding capacity panel - Serum or Plasma IRON + TIBC Lab Routine S/P gastric bypass Postoperative malabsorption Expected: 05/03/2022 (Approximate), Expires: 07/03/2022 [place] Work Phone: Comment on above: Expected: 05/03/2022 (Approximate), Expi res: 07/03/2022 Start: 05-03-2022 End: 07-03-2022 Parathyrin.intact [Mass/volume] in Serum or Plasma PTH INTACT BLD Lab Routine S/P gastric bypass Postoperative malabsorption Expected: 05/03/2022 (Approximate), Expires: 07/03/2022 [place] Work Phone: Comment on above: Expected: 05/03/2022 (Approximate), Expi res: 07/03/2022 Start: 05-03-2022 End: 07-03-2022 Thyrotropin [Units/volume] in Serum or Plasma TSH BLD Lab Routine S/P gastric bypass Postoperative malabsorption Expected: 05/03/2022 (Approximate), Expires: 07/03/2022 [place] Work Phone: Comment on above: Expected: 05/03/2022 (Approximate), Expi res: 07/03/2022 Start: 05-03-2022 End: 07-03-2022 VITAMIN B1 (THIAMINE), WHOLE BLOOD VITAMIN B1 (THIAMINE), WHOLE BLOOD Lab Routine S/P gastric bypass Postoperative malabsorption Expected: 05/03/2022 (Approximate), Expires: 07/03/2022 [place] Work Phone: Comment on above: Expected: 05/03/2022 (Approximate), Expi res: 07/03/2022 Start: 12-25-2021 End: 12-17-2022 PH HUERTA INSERT OFF MEDS PH HUERTA INSERT OFF MEDS Endoscopy Routine Regurgitation of food Gastroesophageal reflux disease, unspecified whether esophagitis present Expected: 12/25/2021, Expires: 12/17/2022 [place] Work Phone: Comment on above: Expected: 12/25/2021, Expires: 3 Start: 10-16-2021 Influenza vaccination [facility] Start: 10-09-2021 End: 12-09-2021 25-hydroxyvitamin D3 [Mass/volume] in Serum or Plasma VITAMIN D 25 HYDROXY Lab Routine S/P laparoscopic sleeve gastrectomy Expected: 10/09/2021, Expires: 12/09/2021 [place] Work Phone: Comment on above: Expected: 10/09/2021, Expires: 2 Start: 10-09-2021 End: 12-09-2021 Cobalamin (Vitamin B12) [Mass/volume] in Serum or Plasma VITAMIN B12 BLOOD Lab Routine S/P laparoscopic sleeve gastrectomy Expected: 10/09/2021, Expires: 12/09/2021 [place] Work Phone: Comment on above: Expected: 10/09/2021, Expires: 2 Start: 10-09-2021 End: 12-09-2021 Ferritin [Mass/volume] in Serum or Plasma FERRITIN BLD Lab Routine S/P laparoscopic sleeve gastrectomy Expected: 10/09/2021, Expires: 12/09/2021 [place] Work Phone: Comment on above: Expected: 10/09/2021, Expires: 2 Start: 10-09-2021 End: 12-09-2021 Folate [Mass/volume] in Serum or Plasma FOLATE SERUM Lab Routine S/P laparoscopic sleeve gastrectomy Expected: 10/09/2021, Expires: 12/09/2021 [place] Work Phone: Comment on above: Expected: 10/09/2021, Expires: 2 Start: 10-09-2021 End: 12-09-2021 Hemoglobin A1c in Blood HGB A1C Lab Routine S/P laparoscopic sleeve gastrectomy Expected: 10/09/2021, Expires: 12/09/2021 [place] Work Phone: Comment on above: Expected: 10/09/2021, Expires: 2 Start: 10-09-2021 End: 12-09-2021 Iron and Iron binding capacity panel - Serum or Plasma IRON + TIBC Lab Routine S/P laparoscopic sleeve gastrectomy Expected: 10/09/2021, Expires: 12/09/2021 [place] Work Phone: Comment on above: Expected: 10/09/2021, Expires: 2 Start: 10-09-2021 End: 12-09-2021 Lipid 1996 panel - Serum or Plasma LIPID PANEL BASIC Lab Routine S/P laparoscopic sleeve gastrectomy Expected: 10/09/2021, Expires: 12/09/2021 [place] Work Phone: Comment on above: Expected: 10/09/2021, Expires: 2 Start: 10-09-2021 End: 12-09-2021 Parathyrin.intact [Mass/volume] in Serum or Plasma PTH INTACT BLD Lab Routine S/P laparoscopic sleeve gastrectomy Expected: 10/09/2021, Expires: 12/09/2021 [place] Work Phone: Comment on above: Expected: 10/09/2021, Expires: 2 Start: 10-09-2021 End: 12-09-2021 Thyrotropin [Units/volume] in Serum or Plasma TSH BLD Lab Routine S/P laparoscopic sleeve gastrectomy Expected: 10/09/2021, Expires: 12/09/2021 [place] Work Phone: Comment on above: Expected: 10/09/2021, Expires: 2 Start: 10-09-2021 End: 12-09-2021 VITAMIN B1 (THIAMINE), WHOLE BLOOD VITAMIN B1 (THIAMINE), WHOLE BLOOD Lab Routine S/P laparoscopic sleeve gastrectomy Expected: 10/09/2021, Expires: 12/09/2021 [place] Work Phone: Comment on above: Expected: 10/09/2021, Expires: 2 Start: 06-23-2021 End: 06-23-2021 Patient encounter procedure 06/23/2021 Office Visit Sports Medicine Belen Stovall MD [address] [place] [address] Sports Medicine Outpatient Care [facility] Start: 04-15-2021 COVID-19 VACCINE (3 - Booster for Woo series) COVID-19 VACCINE (3 - Booster for Woo series) [facility] Start: 10-16-2020 Influenza vaccination [facility] Start: 10-17-2019 Influenza vaccination INFLUENZA VACCINE (#1) [facility] Start: 2019 HPV TESTING [facility]ING [facility] [facility] Start: 2019 Screening for malignant neoplasm of cervix [facility] Start: 2010 PAP TESTING PAP TESTING [facility] Start: 2010 Screening for malignant neoplasm of cervix [facility] Start: 2008 DTaP/Tdap/Td vaccine (1 - Tdap) DTaP/Tdap/Td vaccine (1 - Tdap) [facility] Work Phone: Start: 2008 Hepatitis A Vaccines (1 of 2 - Risk 2-dose series) Hepatitis A Vaccines (1 of 2 - Risk 2-dose series) [facility] Start: 2008 Hepatitis B Vaccine (1 of 3 - 19+ 3-dose series) Hepatitis B Vaccine (1 of 3 - 19+ 3-dose series) [facility] Start: 2008 Hepatitis B Vaccines (1 of 3 - 19+ 3-dose series) Hepatitis B Vaccines (1 of 3 - 19+ 3-dose series) [facility] Start: 2008 Third diphtheria, tetanus and acellular pertussis (DTaP) vaccination TDAP (ADULT) [facility] Start: 2008 Urine microalbumin profile DTAP,TDAP,TD (1 - Tdap) [facility] Start: 2007 ANNUAL PCP TEAM CHRONIC DISEASE VISIT ANNUAL PCP TEAM CHRONIC DISEASE VISIT [facility] Start: 2007 BP CONTROLLED (<130/80) BP CONTROLLED (<130/80) [facility] Start: 2007 HEPATITIS C SCREENING HEPATITIS C SCREENING [facility] Start: 2007 Hepatitis C screening [facility] Start: 2007 HIV SCREENING HIV SCREENING [facility] Start: 2007 HIV screening HIV Screening [facility] Start: 2007 SPIROMETRY SPIROMETRY [facility] Start: 2007 Tetanus vaccination TETANUS [facility] Start: 2004 HIV screening [facility] Start: 2002 HIV screening HIV SCREENING DISCUSSION [facility] Start: 2002 Varicella vaccination Varicella Vaccines (1 of 2 - 13+ 2-dose series) [facility] Start: 2001 COVID-19 VACCINE (1) COVID-19 VACCINE (1) [facility] Start: 2001 Depression Screen Depression Screen [facility] Start: 1995 PNEUMOCOCCAL (1 - PCV) PNEUMOCOCCAL (1 - PCV) [facility] Start: 1995 Pneumococcal vaccination Pneumococcal Vaccine (1 - PCV) [facility] Start: 1995 Pneumococcal Vaccine: Pediatrics (0 to 5 Years) and At-Risk Patients (6 to 64 Years) (1 of 2 - PCV) Pneumococcal Vaccine: Pediatrics (0 to 5 Years) and At-Risk Patients (6 to 64 Years) (1 of 2 - PCV) [facility] Start: 1990 MMR Vaccines (1 of 1 - Standard series) MMR Vaccines (1 of 1 - Standard series) [facility] Start: 1990 Varicella vaccination Varicella Vaccines (1 of 2 - 2-dose childhood series) [facility] Start: 1990 Varicella vaccine (1 of 2 - 2-dose childhood series) Varicella vaccine (1 of 2 - 2-dose childhood series) [facility] Start: 1989 HEPATITIS B (1 of 3 - 3-dose series) HEPATITIS B (1 of 3 - 3-dose series) [facility] Start: 1989 Hepatitis B Vaccine (1 of 3 - 3-dose series) Hepatitis B Vaccine (1 of 3 - 3-dose series) [facility] Start: 1989 Hepatitis B Vaccines (1 of 3 - 3-dose series) Hepatitis B Vaccines (1 of 3 - 3-dose series) [facility] Start: 1989 Hepatitis C antibody, confirmatory test HEPATITIS C VIRUS SCREENING [facility] Start: 1989 [facility]: 1989 HIV screening HIV Screening [facility] Start: 1989 Lipid panel Lipid Panel [facility] Start: 1989 Thyroid stimulating hormone measurement TSH [facility] Start: 1989 TSH Qn TSH [facility] Start: 1989 Yearly Adult Physical Yearly Adult Physical [facility] End: 07-23-2023 ADULT [place] ANORECTAL MANOMETRY ADULT [place] ANORECTAL MANOMETRY Endoscopy Routine Constipation, unspecified constipation type 1 Occurrences starting 07/22/2022 until 07/23/2023 [place] Work Phone: Comment on above: 1 Occurrences starting 07/22/2022 until 07/23/2023 End: 03-23-2023 Basic metabolic 2000 panel - Serum or Plasma Basic Metabolic Panel Lab Routine Morning draw (Lab) for 3 Occurrences starting 03/21/2023 until 03/23/2023 [facility] Work Phone: Comment on above: Morning draw (Lab) for 3 Occurrences sta rting 03/21/2023 until 03/23/2023 End: 03-12-2023 CBC panel - Blood by Automated count CBC Lab Routine Morning draw (Lab) for 3 Occurrences starting 03/10/2023 until 03/12/2023, 1 completed [facility] Service Area Work Phone: Comment on above: Morning draw (Lab) for 3 Occurrences sta rting 03/10/2023 until 03/12/2023, 1 completed End: 03-23-2023 CBC panel - Blood by Automated count CBC Lab Routine Morning draw (Lab) for 3 Occurrences starting 03/21/2023 until 03/23/2023 [facility] Work Phone: Comment on above: Morning draw (Lab) for 3 Occurrences sta rting 03/21/2023 until 03/23/2023 End: 03-16-2023 CBC W Auto Differential panel - Blood CBC and Auto Differential Lab STAT Once (Lab) for 1 Occurrences starting 03/16/2023 until 03/16/2023 [facility] Work Phone: Comment on above: Once (Lab) for 1 Occurrences starting until 03/16/2023 End: 03-16-2023 Comprehensive metabolic 2000 panel - Serum or Plasma Comprehensive metabolic panel Lab STAT STAT (Lab) for 1 Occurrences starting 03/16/2023 until 03/16/2023 [facility] Work Phone: Comment on above: STAT (Lab) for 1 Occurrences starting until 03/16/2023 End: 01-03-2024 Ct angio abd&plvis cntrst mtrl w/wo cntrst img CTA ABD/PEL W IVCON Radiology Routine Generalized abdominal pain 1 Occurrences starting 12/04/2022 until 01/03/2024 [place] Work Phone: Comment on above: 1 Occurrences starting 12/04/2022 until 01/03/2024 ECG 12 Lead ECG 12 Lead ECG STAT As needed until discontinued starting 06/29/2023 [facility] Work Phone: Comment on above: As needed until discontinued starting ECG 12 Lead ECG 12 Lead ECG STAT 06/29/2023 8:50 PM EDT [facility] Work Phone: End: 01-28-2023 ECG COMPLETE ECG COMPLETE ECG Routine Pre-op evaluation 1 Occurrences starting 01/28/2022 until 01/28/2023 [place] Work Phone: Comment on above: 1 Occurrences starting 01/28/2022 until 01/28/2023 End: 11-17-2022 EGD - THERAPEUTIC, EUS, OR TUBE INTERVENTIONS EGD - THERAPEUTIC, EUS, OR TUBE INTERVENTIONS Endoscopy Routine Gastroesophageal reflux disease without esophagitis 1 Occurrences starting 11/17/2021 until 11/17/2022 [place] Work Phone: Comment on above: 1 Occurrences starting 11/17/2021 until 11/17/2022 End: 03-05-2023 EGD - THERAPEUTIC, EUS, OR TUBE INTERVENTIONS EGD - THERAPEUTIC, EUS, OR TUBE INTERVENTIONS Endoscopy Routine Esophageal dysphagia S/P gastric bypass 1 Occurrences starting 03/05/2022 until 03/05/2023 [place] Work Phone: Comment on above: 1 Occurrences starting 03/05/2022 until 03/05/2023 End: 04-27-2024 EGD - THERAPEUTIC, EUS, OR TUBE INTERVENTIONS EGD - THERAPEUTIC, EUS, OR TUBE INTERVENTIONS Endoscopy Routine Gastroesophageal reflux disease, unspecified whether esophagitis present 1 Occurrences starting 04/28/2023 until 04/27/2024 [place] Work Phone: Comment on above: 1 Occurrences starting 04/28/2023 until 04/27/2024 End: 10-09-2022 EGD BARIATRIC EGD BARIATRIC Endoscopy Routine Gastroesophageal reflux disease, unspecified whether esophagitis present Bariatric surgery status Class 1 obesity with serious comorbidity and body mass index (BMI) of 31.0 to 31.9 in adult, unspecified obesity type S/P laparoscopic sleeve gastrectomy 1 Occurrences starting 10/09/2021 until 10/09/2022 [place] Work Phone: Comment on above: 1 Occurrences starting 10/09/2021 until 10/09/2022 End: 10-21-2023 EGD DIAGNOSTIC EGD DIAGNOSTIC Endoscopy Routine Epigastric pain 1 Occurrences starting 10/20/2022 until 10/21/2023 [place] Work Phone: Comment on above: 1 Occurrences starting 10/20/2022 until 10/21/2023 End: 09-07-2024 EGD DIAGNOSTIC EGD DIAGNOSTIC Endoscopy Routine Multiple gastric ulcers 1 Occurrences starting 09/08/2023 until 09/07/2024 [place] Work Phone: Comment on above: 1 Occurrences starting 09/08/2023 until 09/07/2024 Electrocardiogram, 12-lead PRN ACS symptoms Electrocardiogram, 12-lead PRN ACS symptoms ECG Routine As needed until discontinued starting 03/05/2023 [facility] Work Phone: Comment on above: As needed until discontinued starting Electrocardiogram, 12-lead PRN ACS symptoms Electrocardiogram, 12-lead PRN ACS symptoms ECG Routine 03/08/2023 10:45 AM EST [facility] Work Phone: Electrocardiogram, 12-lead PRN ACS symptoms Electrocardiogram, 12-lead PRN ACS symptoms ECG Routine As needed until discontinued starting 03/16/2023 [facility] Service Area Work Phone: Comment on above: As needed until discontinued starting Glucose [Mass/volume ] in Serum or Plasma POCT Glucose Point of Care Testing - Docked Device Routine Every 4 hours (Lab) until discontinued starting 03/05/2023, 30 completed [facility] Work Phone: Comment on above: Every 4 hours (Lab) until discontinued s tarting 03/05/2023, 30 completed Helicobacter pylori Ag [Presence] in Stool by Immunoassay HELICOBACTER PYLORI ANTIGEN BY EIA, STOOL Microbiology Routine Multiple gastric ulcers Ordered: 09/08/2023 [facility] Comment on above: Ordered: 09/08/2023 End: 12-04-2023 Hepatobil syst imag inc gb w/pharma intervenj NM HEPATOBILIARY W EF AND/OR RX Radiology Routine Nausea RUQ pain History of cholecystectomy 1 Occurrences starting 11/04/2022 until 12/04/2023 [place] Work Phone: Comment on above: 1 Occurrences starting 11/04/2022 until 12/04/2023 End: 03-18-2023 Incentive spirometry Instruct Incentive spirometry Instruct Respiratory Care Routine Once for 1 Occurrences starting 03/18/2023 until 03/18/2023 [facility] Work Phone: Comment on above: Once for 1 Occurrences starting 03/18/19 until 03/18/2023 Injx anes celiac ple xus w/wo radiologic monitrng DIAG/THER NRV BLK CELIAC PLEXUS Procedures Routine Chronic pain syndrome Ordered: 01/11/2023 [place] Work Phone: Comment on above: Ordered: 01/11/2023 End: 06-30-2023 Methicillin resistant Staphylococcus aureus [Presence] in Nose by Organism specific culture Staphylococcus Aureus/MRSA Colonization, Culture Microbiology Routine Once (Lab) for 1 Occurrences starting 06/30/2023 until 06/30/2023 [facility] Work Phone: Comment on above: Once (Lab) for 1 Occurrences starting until 06/30/2023 Patient Education [facility] Work Phone: Patient referral [facility] Work Phone: End: 04-27-2024 PH HUERTA INSERT ON MEDS PH HUERTA INSERT ON MEDS Endoscopy Routine Gastroesophageal reflux disease, unspecified whether esophagitis present 1 Occurrences starting 04/28/2023 until 04/27/2024 [place] Work Phone: Comment on above: 1 Occurrences starting 04/28/2023 until 04/27/2024 End: 11-18-2022 PH IMPEDANCE INSERT OFF MEDS PH IMPEDANCE INSERT OFF MEDS Endoscopy Routine Gastroesophageal reflux disease without esophagitis S/P laparoscopic sleeve gastrectomy 1 Occurrences starting 11/19/2021 until 11/18/2022 [place] Work Phone: Comment on above: 1 Occurrences starting 11/19/2021 until 11/18/2022 End: 03-05-2023 Pulse oximetry, continuous Pulse oximetry, continuous Respiratory Care Routine Continuous until discontinued starting 03/05/2023 [facility] Work Phone: Comment on above: Continuous until discontinued starting 0 03/05/2023 End: 06-30-2023 Pulse oximetry, continuous Pulse oximetry, continuous Respiratory Care Routine Continuous until discontinued starting 06/30/2023 [facility] Work Phone: Comment on above: Continuous until discontinued starting 0 06/30/2023 End: 10-18-2023 Radiologic exam upr gi trc double contrast study XR UPPER GI ROUTINE DOUBLE CONTRAST/AIR Radiology Routine S/P bariatric surgery Gastroesophageal reflux disease, unspecified whether esophagitis present 1 Occurrences starting 09/18/2022 until 10/18/2023 [place] Work Phone: Comment on above: 1 Occurrences starting 09/18/2022 until 10/18/2023 SURGICAL PATHOLOGY [place] Work Phone: Comment on above: Release Upon Ordering for 1 Occurrences starting 12/25/2021, 1 completed Surgical pathology study [facility] Service Area Work Phone: Comment on above: Release Upon Ordering for 1 Occurrences starting 03/19/2023, 1 completed End: 03-10-2023 Urethral Catheter Removal Urethral Catheter Removal Procedures Routine Once for 1 Occurrences starting 03/10/2023 until 03/10/2023 [facility] Work Phone: Comment on above: Once for 1 Occurrences starting 03/10/19 until 03/10/2023 End: 07-03-2023 Urethral Catheter Removal Urethral Catheter Removal Procedures Routine Once for 1 Occurrences starting 07/03/2023 until 07/03/2023 [facility] Service Area Work Phone: Comment on above: Once for 1 Occurrences starting 07/03/19 until 07/03/2023 End: 12-04-2023 US ABD RIGHT UPPER QUADRANT US ABD RIGHT UPPER QUADRANT Radiology Routine Nausea RUQ pain History of cholecystectomy 1 Occurrences starting 11/04/2022 until 12/04/2023 [place] Work Phone: Comment on above: 1 Occurrences starting 11/04/2022 until 12/04/2023 US ABD RIGHT UPPER QUADRANT US ABD RIGHT UPPER QUADRANT Radiology Routine Nausea RUQ pain History of cholecystectomy 11/04/2022 11:15 AM EDT [place] Work Phone: End: 12-04-2023 XR KNEE GENERAL 4V AP BOTH/PA BOTH/LAT/MERC RIGHT XR KNEE GENERAL 4V AP BOTH/PA BOTH/LAT/MERC RIGHT Radiology Routine Right knee pain, unspecified chronicity 1 Occurrences starting 11/04/2022 until 12/04/2023 [place] Work Phone: Comment on above: 1 Occurrences starting 11/04/2022 until 12/04/2023 [facility] Immunizations Immunization Date Immunization Notes Care Provider [facility] 11-12-2022 influenza, injectabl e, quadrivalent, preservative free Deacon Kat MD Work Phone: [facility] 11-12-2022 influenza virus vaccine, unspecified formulation Deacon Kat MD Work Phone: [facility] 11-16-2021 influenza virus vaccine, unspecified [facility] 02-18-2021 SARS-CoV-2 (COVID-19 ) mRNA BNT-162b2 vax [facility] Jose Ramon [facility] Comment on above: Result Comment: 2022: TPVALL 01-01-2021 influenza virus vaccine, unspecified formulation Ashutosh Albright [facility] 01-01-2021 influenza, seasonal, injectable Kuldip Yousif MD Work Phone: [facility] 12-25-2020 influenza virus vaccine, unspecified formulation Ashutosh Albright [facility] 12-25-2020 influenza, injectabl e, quadrivalent, preservative free Kuldip Yousif MD Work Phone: [facility] 06-23-2020 COVID-19 Vaccine Woo - Documentation Purposes Only Shanna Granadosault Other [facility] Comment on above: Result Comment: 2022: TPVAL 11-28-2018 influenza, seasonal, injectable Shanna Granadosault Other [facility] 11-28-2018 influenza virus vaccine, unspecified formulation Agustin Gustafson [facility] 09-21-2016 tetanus toxoid, redu lauren diphtheria toxoid, and acellular pertussis vaccine, adsorbed Kuldip Yousif MD Work Phone: [facility] Payers Date Payer Category Payer Unknown [id number] 2023 Self-pay [id number] 2020 Private Health Insurance [id number] 2020 [facility] Health [facility] [id number] 2020-Present [phone] [address] [address] [place] [address] O [id number]. [id number] 2017 Unknown 2017 Unknown [employer] [place] [id number] 2017-Present [id number] 1.2.840.242589.1.13.172.2. 7.3.784219.315 1989 Unknown [id number] 2.16.840.1.349189.3.579.2. 594 1989 Unknown [id number] 2.16.840.1.953949.3.579.2. 594 1989 Unknown [id number] 2.16.840.1.327149.3.579.2. 593 1989 Unknown [id number] 2.16.840.1.116986.3.579.2. 593 1989 Unknown [id number] 2.16.840.1.858450.3.579.2. 593 1989 Unknown [id number] 2.16.840.1.946799.3.579.2. 593 1989 Unknown [id number] 2.16.840.1.400721.3.579.2. 593 1989 Unknown [id number] 2.16.840.1.810362.3.579.2. 593 1989 Unknown [id number] 2.16.840.1.207887.3.579.2. 593 1989 Unknown [id number] 2.16.840.1.885314.3.579.2. 593 1989 Unknown [id number] 2.16.840.1.092084.3.579.2. 593 1989 Unknown [id number] 2.16.840.1.909173.3.579.2. 593 1989 Unknown [id number] 2.16.840.1.103968.3.579.2. 593 1989 Unknown [id number] 2.16.840.1.291710.3.579.2. 593 1989 Unknown [id number] 2.16.840.1.453448.3.579.2. 173 1989 Unknown [id number] 2.16.840.1.060539.3.579.2. 173 1989 Unknown [id number] 2.16.840.1.316210.3.579.2. 173 1989 Unknown [id number] 2.16.840.1.481623.3.579.2. 983 1989 Unknown [id number] 2.16.840.1.697391.3.579.2. 196 1989 Unknown [id number] 2.16.840.1.755793.3.579.2. 182 1989 Unknown [id number] 2.16.840.1.811221.3.579.2. 182 1989 Unknown [id number] 2.16.840.1.509467.3.579.2. 1242 1989 Unknown [id number] 2.16.840.1.750451.3.579.2. 1244 1989 Unknown [id number] 2.16.840.1.830484.3.579.2. 4 1989 Unknown [id number] 2.16.840.1.905750.3.579.2. 1243 1989 Unknown [id number] 2.16.840.1.200173.3.579.2. 4 1989 Unknown [id number] 2.16.840.1.054449.3.579.2. 1243 1989 Unknown [id number] 2.16.840.1.015914.3.579.2. 1243 1989 Unknown [id number] 2.16.840.1.742734.3.579.2. 1243 1989 Unknown [id number] 2.16.840.1.973447.3.579.2. 4 1989 Unknown [id number] 2.16.840.1.166317.3.579.2. 1243 1989 Unknown [id number] 2.16.840.1.568778.3.579.2. 1244 1989 Unknown [id number] 2.16.840.1.260058.3.579.2. 1243 1989 Unknown [id number] 2.16.840.1.438637.3.579.2. 1243 1989 Unknown [id number] 2.16.840.1.434729.3.579.2. 1243 1989 Unknown [id number] 2.16.840.1.524035.3.579.2. 1243 1989 Unknown [id number] 2.16.840.1.959996.3.579.2 1989 Unknown [id number] 2.16.840.1.237093.3.579.2 1989 Unknown [id number] 2.16.840.1.957764.3.579.2 1989 Unknown [id number] 2.16.840.1.750248.3.579.2 1989 Unknown [id number] 2.16.840.1.466182.3.579.2 1989 Unknown [id number] 2.16.840.1.689329.3.579.2 1989 Unknown [id number] 2.16.840.1.394260.3.579.2 1989 Unknown [id number] 2.16.840.1.958803.3.579.2 1989 Unknown [id number] 2.16.840.1.003203.3.579.2 1989 Unknown [id number] 2.16.840.1.912926.3.579.2 1989 Unknown [id number] 2.16.840.1.482625.3.579.2 1989 Unknown [id number] 2.16.840.1.449644.3.579.2 1989 Unknown [id number] 2.16.840.1.936672.3.579.2 1989 Unknown [id number] 2.16.840.1.697262.3.579.2 1989 Unknown [id number] 2.16.840.1.383367.3.579.2 1989 Unknown [id number] 2.16.840.1.569652.3.579.2 1989 Unknown [id number] 2.16.840.1.701063.3.579.2 1989 Unknown [id number] 2.16.840.1.165773.3.579.2 1989 Unknown [id number] 2.16.840.1.260108.3.579.2 1989 Unknown [id number] 2.16.840.1.205378.3.579.2 1989 Unknown [id number] 2.16.840.1.598491.3.579.2 1989 Unknown [id number] 2.16.840.1.289956.3.579.2 1989 Unknown [id number] 2.16.840.1.682213.3.579.2 1989 Unknown [id number] 2.16.840.1.666135.3.579.2 1989 Unknown [id number] 2.16.840.1.127987.3.579.2 1989 Unknown [id number] 2.16.840.1.760177.3.579.2 1989 Unknown [id number] 2.16.840.1.223541.3.579.2. 727 1989 Unknown [id number] 2.16.840.1.173408.3.579.2. 727 1989 Unknown [id number] 2.16.840.1.606855.3.579.2. 727 1989 Unknown [id number] 2.16.840.1.563145.3.579.2. 727 1989 Unknown [id number] 2.16.840.1.529333.3.579.2. 72 1989 Unknown [id number] 2.16.840.1.750940.3.579.2. 727 1989 Unknown [id number] 2.16.840.1.429301.3.579.2. 9 1989 Unknown [id number] 2..840.1.808716.3.579.2. 1258 1989 Unknown [id number] 2..840.1.035929.3.579.2. 1258 1989 Unknown [id number] 2..840.1.764521.3.579.2. 9 1959 Unknown [id number] 1.2.840.776934.1.13.239.2. 7.3.686719.315 1959 Unknown [id number] Unknown [id number] 2.16.840.1.788104.3.579.2. 531 Unknown [id number] 2.16.840.1.074461.3.579.2. 531 Unknown [id number] 2.16.840.1.544243.3.579.2. 531 Unknown [id number] 2.16.840.1.518588.3.579.2. 531 Unknown [id number] 2.16.840.1.306821.3.579.2. 531 Unknown [id number] 2.16.840.1.310553.3.579.2. 531 Unknown [id number] 2.16.840.1.182020.3.579.2. 531 Social History Date Type Detail Facility Start: 01-30-2020 End: 01-28-2022 Tobacco smoking status NHIS Never smoker [facility] Start: 01-30-2020 End: 01-28-2022 Tobacco use and exposure Never used [facility] Start: 01-30-2020 End: 11-02-2022 Alcohol intake Current non-drinker of alcohol (finding) [facility] Start: 1990 Sex Assigned At Not on file A [facility] Start: 06-08-2021 End: 06-29-2023 Exposure to SARS-CoV-2 (event) Not sure [facility] Start: 05-06-2021 End: 09-08-2023 Alcohol intake Ex-drinker (finding) [facility] Start: 10-16-2019 End: 06-20-2022 History SDOH Financial 5 [facility] Start: 10-16-2019 End: 06-20-2022 History SDOH Food Worry 1 [facility] Start: 10-16-2019 End: 06-20-2022 History SDOH Transport Med 2 [facility] Start: 10-15-2019 Education 18 [facility] Start: 06-17-2022 End: 09-18-2022 Sex Assigned At [facility] Start: 10-04-2021 End: 01-01-2022 Exposure to SARS-CoV-2 (event) Unable to assess [facility] Tobacco smoking status Never [facility] Start: 06-17-2022 End: 09-18-2022 History of Social function [facility] Work Phone: (I/We) worried law er (my/our) food would run out before (I/we) got money to buy more. Never true [facility] Work Phone: In the past 12 month s, was there a time when you were not able to pay the mortgage or rent on time? No [facility] Work Phone: Do you belong to any clubs or organizations such as hinduism groups, unions, fraternal or athletic groups, or school groups? Yes [facility] Are you now , , , , never or living with a partner? [facility] How often to you hav e a drink containing alcohol? Never [facility] How hard is it for y ou to pay for the very basics like food, housing, medical care, and heating Somewhat hard [facility] Do you feel stress - tense, restless, nervous, or anxious, or unable to sleep at night because your mind is troubled all the time - these days [OSQ] To some extent [facility] Start: 11-12-2017 Gender identity Identifies as female gender (finding) [facility] How hard is it for y ou to pay for the very basics like food, housing, medical care, and heating Hard [facility] (I/We) worried law er (my/our) food would run out before (I/we) got money to buy more. Sometimes true [facility] Start: 1990 Sex Assigned At Female F [facility] How hard is it for y ou to pay for the very basics like food, housing, medical care, and heating Not very hard [facility] Work Phone: Start: 03-02-2023 Sexual orientation Heterosexual (graham rosado) [facility] Work Phone: Tobacco [facility] Comment on above: denies Tobacco smoking status No Smokin g Status Entered [facility] Do you feel stress - tense, restless, nervous, or anxious, or unable to sleep at night because your mind is troubled all the time - these days [OSQ] Rather much [facility] Work Phone: NEGATED: Highlighted row [facility] Medical Equipment Procedure Code Equipment Code Equipment Origin al Text Equipment Identifier Dates Fibertak Hip Yoanna f Bunching Kl Ohlman 1.8mm [id number] Start: 07-10-2021 Fibertak Hip Yoanna f Bunching Kl Ohlman 1.8mm [id number] Start: 07-10-2021 Fibertak Hip Yoanna f Bunching Kl Ohlman 1.8mm [id number] Start: 07-10-2021 Fibertak Hip Yoanna f Bunching Kl Ohlman 1.8mm [id number] Start: 07-10-2021 Membrane, Sepraf ilm, 5 X 6 In - [id number] Start: 03-05-2023 One touch Verio strips for One Touch Verio meter; test 4 times a day [id number] Start: 01-16-2019 End: 03-10-2023 Functional Status Date Assessment Result Facility 07-17-2023 Functional status Patient at Baseline [facility] Work Phone: 05-17-2023 Functional Status N/A [facility] 05-12-2023 Functional Status No [facility] 05-12-2023 Functional Status [facility] 05-11-2023 Functional Status N/A [facility] 05-09-2023 Functional Status N/A [facility] 05-06-2023 Functional Status N/A [facility] 04-02-2023 Functional Status N/A [facility] 03-16-2023 Functional Status N/A [facility] 03-15-2023 Functional Status N/A [facility] 12-31-2022 Functional Status N/A [facility] 10-20-2022 Functional Status N/A [facility] 10-19-2022 Functional Status N/A [facility] 07-29-2022 Functional Status N/A [facility] 06-10-2022 Functional Status N/A [facility] Mental Status Date Assessment Result Facility 07-17-2023 Cognitive function Cognitive Sta tus Patient at Baseline [facility] Work Phone: Clinical Notes 07-09-2019 to 09-08-2023 Veronika Han MD - 09/08/2023 10:40 AM Marisabel Martinez LPN - 08/31/2023 3:13 PM Carlee Cobb LPN - 08/26/2023 4:24 PM Carlee Cobb, BOIL OFF WORKER - 08/26/2023 4:24 PM EDT Note Date & Type Note Facility 09-08-2023 History of Presen t illness Narrative DEPARTMENT OF GASTROENTEROLOGY - FOLLOW UP VISIT HISTORY OF PRESENT ILLNESS Abbey Garcia is a 33 year old female who presents today for follow up of reflux and constipation. Last seen 04/28/23. She has a PMH significant for anxiety and depression, hypothyroidism, PCOS, s/p cholecystectomy in 2013 and recent appendectomy, s/p SG with conversion to RYGB in Jan 2022 for heartburn and N/V, and MALS surgery in 02/2023. When I last saw her we addressed constipation and increased Linzess to 290 mcg daily. Due to symptoms of reflux EGD (08/2023) was obtained which showed Grade B esophagitis. HUERTA study demonstrated reflux, although episodes of reflux did not correlate with symptoms. Interval History: The patient was admitted from 08/06-08/07 for left quadrant abdominal pain. CT scan at the time showed a mesenteric swirl in the same location. Per prior hospitalist note, this was deemed to be post-surgical in nature. She has met with her surgeon, who did not recommend operation. The patient states that for a couple months, she has had left upper quadrant abdominal pain. She says the pain is constantly there but worsens after eating. She has not been able to advance her diet past the consistency of cottage cheese. After she eats, her left upper quadrant abdominal pain worsens for minutes to hours. She also feels nauseous after eating. About a month ago or so, she switched from J-tube feedings to TPN. Initially she cited pain as the reason for the switch, but later she clarified that the switch to TPN was motivated by bothersome diarrhea and nausea while on tube feeds. She was previously constipated, so her linzess was increased to 290 mcg daily . Now she is having 5-6 loose bowel movements a day. TEST RESULTS SINCE LAST VISIT Imaging/Procedures: CT abdomen/pelvis 08/04/23: IMPRESSION: 1. Interval development of a large airspace opacity in the left lower lobe. 2. Dilatation of the biliary tree in this patient status post cholecystectomy. The biliary dilatation is more prominent on the current examination. Consider correlation with a liver function tests. 3. 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 There is no obstruction identified. 4. Trace amount of pelvic free fluid. 5. Borderline splenomegaly. EGD 08/26/23: - LA Grade B erosive esophagitis with no bleeding. - Gastric erosions with no stigmata of recent bleeding. - Gastric bypass with a normal-sized pouch. Gastrojejunal anastomosis characterized by healthy appearing mucosa. - Normal examined jejunum. - The HUERTA capsule was activated and then calibrated by submersion into the appropriate buffer solutions. - The HUERTA pH capsule was deployed. - No specimens collected. Huerta: Interpretations Abnormal pH study on PPI therapy. No symptom association observed. Hemoglobin (g/dL) Date Value 08/08/2023 9.9 03/18/2021 11.1 Hematocrit (%) Date Value 08/08/2023 31.1 03/18/2021 36.2 WBC (k/uL) Date Value 08/08/2023 3.17 03/18/2021 3.60 Glucose (mg/dL) Date Value 08/08/2023 89 03/18/2021 61 Potassium (mmol/L) Date Value 08/08/2023 4.1 03/18/2021 4.2 Sodium (mmol/L) Date Value 08/08/2023 139 03/18/2021 139 Chloride (mmol/L) Date Value 08/08/2023 108 03/18/2021 105 CO2 (mmol/L) Date Value 08/08/2023 22 03/18/2021 24 Creatinine (mg/dL) Date Value 08/08/2023 0.69 03/18/2021 0.82 BUN (mg/dL) Date Value 08/08/2023 7 03/18/2021 10 Anion Gap (mmol/L) Date Value 08/08/2023 9 03/18/2021 10 Calcium (mg/dL) Date Value 03/18/2021 9.0 Calcium, Total (mg/dL) Date Value 08/08/2023 8.7 Protein, Total (g/dL) Date Value 08/07/2023 5.8 03/18/2021 6.8 Albumin (g/dL) Date Value 08/08/2023 3.4 03/18/2021 4.2 Bilirubin, Total (mg/dL) Date Value 08/07/2023 0.2 03/18/2021 0.3 Alkaline Phosphatase (U/L) Date Value 08/07/2023 58 03/18/2021 61 AST (U/L) Date Value 08/07/2023 18 03/18/2021 26 ALT (U/L) Date Value 08/07/2023 16 03/18/2021 14 Current Outpatient Medications Medication Sig Dispense Refill omeprazole (PRILOSEC) 40 mg capsule Take 1 capsule by mouth two times a day. 60 capsule 2 ketamine 5% nasal spray solution (CPD) 0.1 mL/spray. Use as directed. Apply 2 sprays by nose twice per day if tolerated. Added volume to account for dispenser loss. Physician office visit required for subsequent refills. 12 mL 2 naltrexone 1.5 mg capsule (CPD) Take 1 capsule daily at 9 pm. May increase to 2 capsules if no relief after 2 weeks. Do not use calcium as a pot filler preparation. If insomnia or vivid dreams occur, then would take capsule at 9 am. 60 capsule 11 hydrOXYzine HCl (ATARAX) 25 mg tablet TAKE 1 TABLET BY MOUTH TWICE A DAY NEEDED FOR ANXIETY 180 tablet 1 albuterol HFA (PROVENTIL HFA, VENTOLIN HFA) 90 mcg/actuation inhaler Inhale 2 Puffs as instructed every 4 hours as needed for wheezing/shortness of breath. 1 Each 0 ondansetron orally disintegrating (ZOFRAN ODT) 8 mg disintegrating tablet Take 1 tablet by mouth every 8 hours as needed for nausea/vomiting. 10 tablet 0 acetaminophen 325 mg-caffeine 40 mg-butalbital 50 mg (FIORICET) per tablet Take 1 tablet by mouth every 4 hours as needed for headache. ferrous sulfate 325 mg (65 mg iron) tablet Take 1 tablet by mouth two times a day. midodrine (PROAMITINE) 5 mg tablet Take 1 tablet by mouth every 8 hours. Please do not take this if systolic blood pressure greater than 110. Please discuss with your primary doctor if this needs to be continued especially if low blood pressures persist 30 tablet 0 methocarbamol (ROBAXIN) 750 mg tablet Take 750 mg by mouth three times a day. escitalopram oxalate (LEXAPRO) 20 mg tablet Take 1 tablet by mouth once daily. 90 tablet 1 prochlorperazine (COMPAZINE) 10 mg tablet Take 1 tablet by mouth every 6 hours as needed for nausea/vomiting. 15 tablet 0 busPIRone (BUSPAR) 10 mg tablet Take 1 tablet by mouth three times a day. 270 tablet 1 docusate sodium (COLACE) 100 mg capsule Take 1 capsule by mouth two times a day as needed for constipation. nutritional supplements (NUTREN 2.0) 0.08 gram-2 kcal/mL liqd 45 mL/hr by FEEDING TUBE route continuous infusion starting at 6 pm. Plus 180cc q 4h water flushes. 1080 mL 3 mirtazapine (REMERON) 30 mg tablet Take 1 tablet by mouth daily at bedtime. 90 tablet 1 fluticasone-salmeterol (ADVAIR DISKUS) 100-50 mcg/dose inhaler Inhale 1 Puff as instructed every 12 hours. metoclopramide HCl (REGLAN) 5 mg tablet Take 5 mg by mouth before meals and at bedtime. topiramate (TOPAMAX) 100 mg tablet Take 100 mg by mouth two times a day. liothyronine (CYTOMEL) 5 mcg tablet Take 5 mcg by mouth once daily. mirabegron (MYRBETRIQ) 25 mg Tb24 Take 1 tablet by mouth once daily. 90 tablet 3 levothyroxine (SYNTHROID) 75 mcg tablet Take 1 tablet by mouth once daily. 90 tablet 0 No current facility-administered medications for this visit. ALLERGIES Allergen Reactions Adhesive Tape-Silic* Intolerance Sensitive to certain adhesive tapes. Redness and itchy. Codeine GI Upset Nsaids (Non-Steroid* Contraindication-Medical Surgical S/p RYGB REVIEW OF SYSTEMS EyesNegative for vision changes, diplopia or epiphora. Ears, Mouth, nose, throat:No problems Cardiovascular: No Problems Respiratory: Negative for cough, wheezing and shortness of breath Gastrointestinal : Loss of Appetite, Nausea, Abdominal Discomfort, Diarrhea, and Abdominal Cramping Genitourinary: Negative Musuloskeletal: Denies significant problems Integumentary: no rashes, lesions, or jaundice Neurological: No history of neurologic problems Endocrine: Negative for cold or heat intolerance, polyuria, polydipsia and goiter. Psychiatric: Cooperative and agreeable Allergic/ Immunologic: Negative All others negative PAST MEDICAL HISTORY Heart Disease: no Lung Disease: no Liver problems: no Thyroid disease: yes Kidney stones: yes Depression or other mental illness: yes depression PHYSICAL EXAMINATION BP 118/82 Pulse 74 Temp (Src) 97.3 (Temporal) Ht 5' 6 (1.68m) Wt 175 lb 9.6 oz (79.7kg) SpO2 100% LMP 08/19/2020 BMI 28.36 kg/(m^2). General Appearance: alert, oriented x 3, pleasant and in no acute distress Eyes: Negative for significant chage in vision, and significant vision problems Oropharynx:Lips, tongue, and oral mucosa normal. There is no thrush or oral ulcers. Lungs: breath sounds clear to auscultation bilaterally, no crackles, rhonchi, or wheezes Heart: regular rate and rhythm, no murmurs or gallops Abdomen: not distended, normal bowel sounds, soft and depressible, no guarding or rebound, J tube in left lower quadrant. Carnett sign is positive. Rectal exam: deferred Extremities: no cyanosis or edema Skin: no jaundice, no spider angiomas, no palmar erythema Neuro: alert, oriented x 3, pleasant and in no acute distress Assessment IMPRESSION Abbey Garcia is a 33 year old female who presents today for follow up of reflux and constipation. Last seen 04/28/23. She has a PMH significant for anxiety and depression, hypothyroidism, PCOS, s/p cholecystectomy in 2013 and recent appendectomy, s/p SG with conversion to RYGB in Jan 2022 for heartburn and N/V, and MALS surgery in 02/2023. Prior to bypass surgery, she was on TF at one point. Due to symptoms of reflux, EGD (08/2023) was obtained which showed Grade B esophagitis. HUERTA study demonstrated reflux, although episodes of reflux did not correlate with symptoms. More recently, the patient has been struggling with left upper quadrant abdomina pain. Carnett sign is positive. There area of pain does correlate with the mesenteric swirl seen on CT imaging (07/2023). Ddx of pain includes myofascial pain vs. Internal hernia vs. Peptic ulcer disease (as some ulcers were noted on EGD). PLAN --reduce linzess to 145 mcg given diarrhea --h pylori stool antigen ordered --EGD in 8-12 weeks to determine whether ulcers have healed --will determine whether abdominal injection may relieve her pain; if not, will reach out to her surgeon GI STAFF I evaluated the patient and personally participated in the paula components. I reviewed the history and physical examination obtained and documented by the GI fellow and have discussed the case management of the patient's care with the GI fellow . The following comments revise or confirm relevant paula elements of fellow's note The LUQ pain she had prior to MALS release has recurred as of 2 months ago. It is constant but worsens with PO intake or activity. She hence had a J tube placed but could not tolerate J feeds due to diarrhea and nausea and is now on TPN. Noted recent hospital admissions and CT Scan from July 2023 with mesenteric swirl sign. Seeing intestinal rehab soon She reports GERD is better. Noted LA grade B esophagitis on recent EGD and abnormal pH study on Prilosec 40mg daily. Noted gastric erosions vs ulcers. PPI dosing increased to BID given EGD findings. Denies NSAID use. Es Guillenzess 290mcg has been working, has an average of 2-3 BMs per day but on some bad days she could have up to 7BMS. Exam notable for upper abdominal pain and Carnett sign strongly positive in the LUQ. (K25.9) Multiple gastric ulcers (primary encounter diagnosis) (R10.12) LUQ pain Dsicussed DDX including visceral hyperalgesia vs. PUD (less likely to be the only cause as Sx were there before with normal EGDs) vs. Abdominal wall pain vs internal hernia (given RYGB history and mesenteric swirl on recent CT ). - H pylori stool test (on PPI for now given presence of gastric superifical ulcerations) - Repeat EGD in 8 to 12 weeks to ensure healing - Will discuss abdominal wall injection with pain management given + Carnett sign. If not helpful, then maybe consider diagnostic laparoscopy to r/o internal hernia given Sx and CT findings. Will discuss with Dr. Kat (K21.00) Gastroesophageal reflux disease with esophagitis without hemorrhage We increased Prilosec to 40mg BID (K59.00) Constipation, unspecified constipation type Offered decreasing Linzess to 145mcg daily. She prefers stopping the Colace which she has been also taking as a first step I spent a total of 30 minutes on the date of the service which included preparing to see the patient, [id number] patient care, completing clinical documentation, obtaining and/or reviewing separately obtained history, performing a medically appropriate examination, counseling and educating the patient/family/caregiver, ordering medications, tests, or procedures, and communicating with other HCPs (not separately reported). Signature: Kasie Avalos MD Date: 09/08/23 Time: 12:10 PM documented in this encounter [facility] 08-31-2023 Note [facility] 08-31-2023 History of Presen t illness Narrative Name: Abbey Garcia [facility]#: [id number] Date: 08/31/2023 HUERTA 48 HR PH FOLLOW-UP The HUERTA monitor was returned today.. Test data from the lumber stacker was downloaded. Events from the patient diary were inserted into the study for physician review. .Marisabel Lynn LPN documented in this encounter [facility] 08-26-2023 Nurse Note AMBULATORY [...] MATERIAL: Procedure Discharge Instructions REFERRAL (RECOMMENDATION): None [facility] 08-26-2023 Nurse Note AMBULATORY [...] In Department: GASTROENTEROLOGY documented in this encounter [facility] 08-26-2023 Nurse Note AMBULATORY [...] MATERIAL: Procedure Discharge Instructions REFERRAL (RECOMMENDATION): None [facility] 08-26-2023 Note [facility] 08-26-2023 History of Presen t illness Narrative Name: Abbey Garcia [facility]#: [id number] Date: 08/26/2023 48hr HUERTA PH CAPSULE PLACEMENT [...] .Marisabel Lynn LPN documented in this encounter [facility] 08-26-2023 Nurse Note Patient had a PICC line present on admission to [facility]. PICC line had a brisk blood return and flushed per [facility] policy. Patient tolerated well. [facility] 08-26-2023 Nurse Note PRE OP LEARNING ASSESSMENT PROCEDURE/SURGERY: GI PROCEDURES: EGD READINESS TO LEARN COGNITIVE ABILITY: Alert and oriented MOTIVATION TO LEARN: Interested FAMILY SUPPORT: Unable to assess - Family not present PATIENT LEARNS BEST BY: Individual Instruction FACTORS AFFECTING LEARNING: None PHYSICAL LIMITATIONS AFFECTING LEARNING: None Electronically Signed By: Lisette Newell RN In Department: GASTROENTEROLOGY [facility] 08-25-2023 Telephone encounter Note Called patient; [facility] in [place] has been removed from Pharmacy list. Patient requests [facility]. Patient's request for medication is as follows: [...] weeks. Do not use calcium as a pot filler preparation. If insomnia or vivid dreams occur, then would take capsule at 9 am. Prescription(s) as above. Please process accordingly. Sabina Ibrahim MA [facility] 08-25-2023 Miscellaneous Notes Called patient; [facility] in [place] has been removed from Pharmacy list. Patient requests [facility]. Patient's request for medication is as follows: [...] weeks. Do not use calcium as a pot filler preparation. If insomnia or vivid dreams occur, then would take capsule at 9 am. Prescription(s) as above. Please process accordingly. Sabina Ibrahim MA documented in this encounter [facility] 08-23-2023 Telephone encounter Note Doxycycline ordered. Make sure bumper is not tight to skin, there should be 1 cm (1/3 inch) of play. [facility] 08-23-2023 Miscellaneous Notes Doxycycline ordered. Make sure bumper is not tight to skin, there should be 1 cm (1/3 inch) of play. documented in this encounter [facility] 08-20-2023 Telephone encounter Note [...] appreciative of call. Serena Neff RN BSN Zoning Assistant for Dr. Kat [facility] 08-20-2023 Miscellaneous Notes Patient's [...] appreciative of call. Serena Neff RN BSN Zoning Assistant for Dr. Kat Staff message sent to Dr. Kat. Patient's phoned me to discuss [place]. States [place] is having severe, debilitating abdominal pain. States it feels like a knife is turning in her abdomen and she is unable to do anything until the pain subsides. Pt often dry heaves as well, which increases her pain significantly. Patient is currently scheduled to be evaluated by intestinal rehab team on 10/12, but states this is too far out, as he is taking Abbey to the hospital 1-2 times per week for fear of obstruction and management of her severe abdominal pain. Asked if pt was on waiting list and if they had the number to reach the intestinal rehab schedulers. confirms they are on waiting list and they have the number. Understands it is a busy service, but struggling with waiting 2 more months while [place] is in pain. requesting to speak with Dr. Kat about potentially repairing hernia and taking down adhesions in an attempt to solve her pain issues. Advised that I would forward his requests and concerns to Dr. Kat. Serena Neff RV MECHANIC Zoning Assistant for Dr. Kat documented in this encounter [facility] 08-18-2023 Telephone encounter Note Staff message sent to Dr. Kat. [facility] 08-18-2023 Telephone encounter Note Patient's phoned me to discuss [place]. States Abbey is having severe, debilitating abdominal pain. States it feels like a knife is turning in her abdomen and she is unable to do anything until the pain subsides. Pt often dry heaves as well, which increases her pain significantly. Patient is currently scheduled to be evaluated by intestinal rehab team on 10/12, but states this is too far out, as he is taking [place] to the hospital 1-2 times per week [...] and concerns to Dr. Kat. Serena Neff RV MECHANIC Zoning Assistant for Dr. aKt [facility] 08-12-2023 Telephone encounter Note GI Pre-Procedure Spoke with patient: Yes Confirmed date scheduled and patient report time: Yes Procedure Planned:Huerta insert Esophagogastroduodenoscopy(EGD) for control of bleeding,dilation(any means),imaging,tube placement Is the patient on blood thinners?no Procedure Instructions given to patient: Yes, and they verbalized their understanding of instructions given Patient instructed to have family/friend present for procedure transport home:Patient/patient branch sales and service representative was told that if they do [...] area. Any barriers to Patient learning: Patient/Patient Process Validation Engineer responded appropriately on phone. Type of instruction given: Verbal by telephone contact. Radha Osman MA [facility] 08-12-2023 Miscellaneous Notes GI Pre-Procedure Spoke with patient: Yes Confirmed date scheduled and patient report time: Yes Procedure Planned:Huerta insert Esophagogastroduodenoscopy(EGD) for control of bleeding,dilation(any means),imaging,tube placement Is the patient on blood thinners?no Procedure Instructions given to patient: Yes, and they verbalized their understanding of instructions given Patient instructed to have family/friend present for procedure transport home:Patient/patient branch sales and service representative was told that if they do [...] area. Any barriers to Patient learning: Patient/Patient Process Validation Engineer responded appropriately on phone. Type of instruction given: Verbal by telephone contact. Radha Osman MA documented in this encounter [facility] 08-09-2023 History of Presen t illness Narrative Images from the original note were not included. SUBJECTIVE: The patient presents to [facility] Pain Management Department for [...] reviewed by the physician Ms. Garcia called Rizwana'elisabeth & was told that medications will not [...] re: Kadi vs. different [place] location vs. [employer] online to try She previously tried gabapentin, [...] spray continued (problem with in stock at [facility]) Return to clinic (in-person office visit or virtual visit/telemedicine) after all above completed fully. I spent a total of 25 minutes on the date of the service which included: *preparing to see the patient *pozq-ua-zrqu patient care *completing clinical documentation *obtaining and/or [...] August 05, 2023 documented in this encounter [facility] 08-09-2023 Note [facility] 08-06-2023 Note [facility] 08-06-2023 Note HNO ID: [id number] Author: MARIA TERESA MURILLO MD Service: Hospital Medicine Author Type: Physician Type: Plan of Care Filed: 08/06/2023 11:50 Note Text: To review with pulmonology [facility] 08-05-2023 Note [facility] 08-05-2023 Telephone encounter Note Requested Prescriptions Pending Prescriptions Disp Refills ketamine 5% nasal spray solution (CPD) 12 mL 0 Si.1 mL/spray. Use as directed. 1 spray by nose twice per day x 3 days, then increase to 2 sprays by nose twice per day if tolerated. Added volume to account for dispenser loss. Physician office visit required for refill. [facility] 08-05-2023 Miscellaneous Notes Requested [...] required for refill. documented in this encounter [facility] 08-05-2023 Note [facility] 08-04-2023 Note [facility] 08-04-2023 Note [facility] 08-04-2023 Note [facility] 08-04-2023 Telephone encounter Note Lucie from [facility] pharmacy calling regarding RX just sent in for Ketamine. He states that is not something they have or can help with at [facility]. States maybe a compounding pharmacy. So RX unavailable. [facility] 08-04-2023 Miscellaneous Notes Lucie from [facility] pharmacy calling regarding RX just sent in for Ketamine. He states that is not something they have or can help with at [facility]. States maybe a compounding pharmacy. So RX unavailable. documented in this encounter [facility] 08-04-2023 History of Presen t illness Narrative Follow up Visit Patient Name: Abbey Garcia MR #: [id number] Age: [age] year old Date: August 03, [...] SD worse than population and warrants attention Motion Picture Operator:Nathalie Reed MA The patient is a 33-year-old [...] a soft abdomen. Patient has remarkable tenderness Boyle to palpation even for very light palpation [...] her next visit documented in this encounter [facility] 08-04-2023 Note [facility] 07-20-2023 Note [facility] 07-19-2023 [facility]23 Consult note Note Date/Time July 17, 2023 1:56p m [facility] [address] [place] [address] General Surgery Consult Note Signed Patient: Abbey Garcia MR#: [id number] : 1990 Acct:[id number] Age/Sex: 33 / F Adm Date: 4 Loc: 4N Room: 1C5696-8 Type: ADM IN Attending Dr: Camden Rodriguez DO Copies to: MD Thomas Jordan MD Yazid Hussein, DO~ History of Present Illness Date of consult: 07/17/2023 Requesting/Attending Provider: Camden Rodriguez DO History of present illness: The patient is a 33-year-old female admitted with nausea and vomiting. Patient had Tan-en-Y gastric bypass procedure done 2021 at [facility]. In 2020, she had had a gastric [...] scheduled to have a procedure done at [facility] in the near future. CT scan here showed:IMPRESSION: Fluid-filled distal small bowel loops without gross distention. Developing small bowel obstruction cannot be excluded Currently, patient has some nausea and some upper abdominal discomfort.. Review of Systems Constitutional Constitutional: Denies fever(s) Cardiovascular Cardiovascular: Denies chest pain Respiratory Respiratory: Denies dyspnea Gastrointestinal Gastrointestinal: Reports abdominal pain, Reports nausea and Reports vomiting [facility] Medical History Encounter for PEG [...] Tablet) 15 mg PO TID [facility] Stop: 07/16/24 13:59 Dextrose (Dextrose 50% In Water 25 Gm/50 Ml Syringe) 0 gm IV-PUSH PRN PRN PRN Reason: Hypoglycemia Stop: 07/16/24 11:08 Enoxaparin Sodium (Enoxaparin 40 Mg/0.4 Ml Syringe) 40 mg SUBCUT DAILY@10 [facility] Stop: 07/16/24 09:59 Last Admin: 07/17/23 11:23 Dose: 40 mg Escitalopram Oxalate (Escitalopram 20 Mg Tablet) 20 mg PO DAILY [facility] Stop: 07/16/24 08:59 Last Admin: 07/17/23 11:21 Dose: 20 mg Glucose (Dextrose 40% Gel 15 Gm Tube) 0 gm PO PRN PRN PRN Reason: Hypoglycemia Stop: 07/16/24 11:08 Sodium Chloride (0.9% Sodium Chloride 1,000 Ml) 1,000 mls @ 100 mls/hr IV .[id number] Stop: 07/18/24 08:59 Potassium Chloride 20 meq/ [...] @ 63.008 mls/hr IV DAILY@1800 [facility]; Protocol Stop: 07/16/24 17:59 Fat Emulsion Intravenous 250 (ml/ IV Miscellaneous Supplies) 250 mls @ 21 mls/hr IV MOWEFR@1800 [facility] Stop: 07/18/24 17:59 Levothyroxine Sodium (Levothyroxine 75 Mcg Tablet) 75 mcg PO DAILY@0630 [facility] Stop: 07/17/24 06:29 Liothyronine Sodium (Liothyronine 5 [...] Tablet) 30 mg PO HS [facility] Stop: 07/16/24 21:59 Morphine Sulfate (Morphine Sulfate [...] 40 Mg Vial) 40 mg IV-PUSH DAILY [facility] Stop: 07/16/24 08:59 Last Admin: 07/17/23 11:22 Dose: 40 mg Polyethylene Glycol (Polyethylene Glycol 3350 17 Gm Powd.Pack) 17 gm PO BID PRN PRN Reason: constipation Stop: 07/16/24 09:07 Prednisone (Prednisone 5 Mg Tablet) 5 mg PO DAILY [facility] Stop: 07/17/24 08:59 Sodium Chloride (Sodium Chloride [...] Appearance Clear, Urine pH 7.5, Ur Specific [place] 1.006, Urine Protein Negative, Urine Glucose (UA) [...] % (Auto) 75.6, Lymph % (Auto) 18.7, [place] % (Auto) 4.5, Eos % (Auto) 0.5, Baso % (Auto) 0.7, Nucleat RBC Rel Count 0.0, Neut # (Auto) 5.2, Lymph # (Auto) 1.3, [place] # (Auto) 0.3, Eos # (Auto) 0.0, [...] being actively seen by her surgeon at [facility] for her GI issues status post gastric bypass surgery. Transfer to [facility] is pending. Patient currently does not have [...] times. Documented By: Keven Kimbrough MD 07/17/23 8693 Signed By: <Electronically signed by MD Keven Kimbrough> 07/17/23 2489 [facility] Work Phone: 1(900) 536-240806-01-2024 History and physical note Author Camden Rodriguez [facility] July 17, 2023 11:19am Note Date/Time July 17, 2023 11:19 am [facility] [address] [place] [address] Hospitalist H&P Signed Patient: Abbey Garcia MR#: [id number] : 1990 Acct:[id number] Age/Sex: 33 / F Adm Date: 4 Loc: 4N Room: 2H2076-0 Type: ADM IN Attending Dr: Camden Rodriguez [...] negative unless noted below or in HPI [facility] Medical History Encounter for PEG [...] % (Auto) 18.7 % (.) 07/16/23 15:10 [place] % (Auto) 4.5 % (.) 07/16/23 15:10 Eos % (Auto) 0.5 % (.) 07/16/23 15:10 Baso % (Auto) 0.7 % (.) 07/16/23 15:10 Nucleat RBC Rel Count 0.0 /100 WBC (0-0.5) 07/16/23 15:10 Neut # (Auto) 5.2 x10E3/uL (1.8-7.7) 07/16/23 15:10 Lymph # (Auto) 1.3 x10E3/uL (1.00-4.8) 07/16/23 15:10 [place] # (Auto) 0.3 x10E3/uL (0.0-0.8) 07/16/23 15:10 [...] pH 7.5 (5.0-9.0) 07/16/23 15:21 Ur Specific [place] 1.006 (1.001-1.030) 07/16/23 15:21 Urine Protein Negative [...] signed by Camden Rodriguez DO> 07/17/23 1119 [facility] Work Phone: 1(177) 988-952705-30-2024 [facility] Telephone encounter Note* Telephone Encounter - Natalie [...] have family/friend present for procedure transport home:Patient/patient branch sales and service representative was told that if they do [...] area. Any barriers to Patient learning: Patient/Patient Process Validation Engineer responded appropriately on phone. Type of instruction given: Verbal by telephone contact. Natalie Alarcon LPN [facility]05-28-2024 Miscellaneous Notes* Telephone Encounter [...] have family/friend present for procedure transport home:Patient/patient branch sales and service representative was told that if they do [...] area. Any barriers to Patient learning: Patient/Patient Process Validation Engineer responded appropriately on phone. Type of instruction given: Verbal by telephone contact. Natalie Alarcon LPN documented in this [facility]24 Note [id number] 07-09-2023 NoteHNO ID: [id number] Author: PABLO LEBRON PSYD Service: ? Author Type: Psychologist Type: Progress Notes Filed: 07/09/2023 09:26 Note Text: Assessment was conducted virtually. Patient is a resident of [place], and completed the assessment virtually in [place]. Psychologist is licensed and stationed in [place]. Informed consent was discussed and verbal assent [...] exercise, positive self-talk). Sources of support (, drgsan-zy-fkr, brothers, grandfather). OBJECTIVE: Utilized cognitive behavioral and [...] positive self-talk) and sources of support (, envjiq-sn-jmm, brothers, grandfather). Pt requests to end session early due to childcare needs. DIAGNOSIS: PRIMARY: 1: Depression, Controlled Generalized Anxiety Disorder Situational Stress PROVISIONAL: Unspecified trauma and stressor related disorder TREATMENT MODALITIES: Cognitive Behavioral Therapy to behavior modifications, cognitive restructuring, self monitoring and increasing pleasurable activities, Solution Focused Psychotherapy, Supportive Therapy PROGRESS TO DATE: Custodial Progress: Stable Short Term Condition: Stable GOALS/OBJECTIVES/INTERVENTIONS: To identify and implement tools for effectively managing symptoms of anxiety, stress, and low mood. Approximately 15 minutes were spent with the patient doing therapy. [facility] History of Present illness Narrative* Pablo Lebron, [facility] - 07/09/2023 8:57 AM EDT Assessment was conducted virtually. Patient is a resident of [place], and completed the assessment virtually in [place]. Psychologist is licensed and stationed in [place]. Informed consent was discussed and verbal assent was granted by the patient. GENERAL PSYCHOLOGY Session #: 5 (session count starts after YL NEW EVAL visit) SUBJECTIVE: Managing health conditions (pneumonia, kidney stone, dehydration, nausea, fatigue). Efforts to balance personal health and familial responsibilities/stress. Boundaries with mother (narcissistic, hurtful behavior). Coping tools (journaling, goal setting, daily meditation, brief/light exercise, positive self-talk). Sources of support (, hxixgx-kq-gzt, brothers, grandfather). OBJECTIVE: Utilized cognitive behavioral and [...] positive self-talk) and sources of support (, kkdlkn-bm-qxe, brothers, grandfather). Pt requests to end session early due to childcare needs. DIAGNOSIS: PRIMARY: 1: Depression, Controlled Generalized Anxiety Disorder Situational Stress PROVISIONAL: Unspecified trauma and stressor related disorder TREATMENT MODALITIES: Cognitive Behavioral Therapy to behavior modifications, cognitive restructuring, self monitoring and increasing pleasurable activities, Solution Focused Psychotherapy, Supportive Therapy PROGRESS TO DATE: Custodial Progress: Stable Short Term Condition: Stable GOALS/OBJECTIVES/INTERVENTIONS: To identify and implement tools for effectively managing symptoms of anxiety, stress, and low mood. Approximately 15 minutes were spent with the patient doing therapy. Pablo Lebron PsyD documented in this encounter[facility] Nurse Note* Rosanna Blanco OCCA - 07/06/2023 1:55 PM EDT Post Void Residual done on patient with 8 cc residual volume remaining. notified. ALLISON Schreiber [facility]05-21-2024 Nurse Note* Rosanna Blanco OCCA - 07/06/2023 1:55 PM EDT Post Void Residual done on patient with 8 cc residual volume remaining. MD notified. ALLISON Schreiber documented in this encounterMercy [facility]24 History of Present illness Narrative* Francisco J Steve MD - 07/06/2023 1:40 PM EDT [facility]ALE PELVIC MEDICINE AND RECONSTRUCTIVE SURGERY PATIENT HISTORY AND PHYSICAL EXAM PATIENT INFO: Abbey Garcia is a 33 year old female. REFERRING M.D.: Marcos Moreno [address] [place] [address] [place] [id number] Moreno for an [...] having recent UTI, that was treated at [facility] (although no records seen of this) and that she required a long catheter for two weeks due to high amounts in her bladder. No recent dysuria or hematuria. Does endorse some left flank pain. History of three C-sections, no vaginal deliveries QUESTIONNAIRE: Questionnaire: [facility] Ambulatory Visit Intake Questionnaire Question Answer [...] you will be given? No Questionnaire: f [facility] Additional Demo Question Answer Is this visit related to an accident, other than Workers' Compensation? No Is this visit related to Workers' Compensation? No Do you need an language interpreter? No Questionnaire: [facility] Female Pelvic Medicine Base Question Answer [...] lower abdominal or genital area? Greatly Questionnaire: Walt Provider Understanding Current Health Urology Question Answer [...] (Non-Steroidal Anti-Inflammatory Drug) PHYSICAL EXAM: VITAL SIGNS: [facility] 08/19/2020 PHYSICAL EXAM General: Patient in no [...] for her OAB, and instructed her to picker feeder and use whicheveris cheapest at the pharmacy. [...] Level: 4 - Moderate documented in this encounterMer[facility]05-[facility]-2024 [facility]05-[facility] Nurse Note* Tory Mcmullen RN - 07/03/2023 2:27 PM EDT Reviewed discharge with patient, all questions answered, aware of appointments ride downstairs. Pegfeedings stopped and flushed prior to clamping. Patient TPN stopped PICC flushed patient to leave with PICC [facility]05-18-2024 Nurse Note* Tory Mcmullen RN - 07/03/2023 [...] lumen picc, per patient was placed at [facility] about a month ago for TPN infusions. [...] tip placement is needed. RN to message DrRenetta * Mayda Balbuena LPN - 07/01/2023 2:30 AM EDT Pt alert and oriented, long intact, clear yellow urine , medicated twice for left epigastric pain with somewhat effect, TPN running at 83ml/hr, tolerating well, no sign of adverse reaction, pt remain NPO , sips with meds, pt in no acute distress, all safety measures in place, call light within reach. documented in this [facility] Work Phone: [phone]) [phone] Nurse Note* Tory Mcmullen RN - 07/03/2023 2:11 PM EDT Long removed per orders, discharge prepared at this time. [facility] Work Phone: 1(524) 815-801105-18-2024 History of Present illness Narrative* Dolores Cox MD - 07/03/2023 12:22 PM EDT Abbey Garcia is a 33 y.o. female on day 3 of admission presenting with Epigastric pain. Subjective She presented to the hospital with abdominal pain. She had previously undergone laparoscopic sleeve gastrectomy, on 09/03/2020 at the [facility]. She has a gastrojejunostomy tube. [...] medication and antiemetic. Follow up at the [facility] for intestinal rehab. Dolores Cox MD * Fadumo Edge RDN, [place] - 07/02/2023 2:23 PM EDT Nutrition Progress Note messaged me for tube feed recommendations. Pt is now receiving tube feed and TPN. Nutrition Interventions and Recommendations: Nutrition Prescription: Individualized Nutrition Prescription Provided for : 0732-9408 kcals, 59-71 gm protein via parent[employer] enteral [...] home. Patient was active with RN from [facility] prior to admission. Patient would like to continue with their services post discharge. External referral already placed and sent to [facility]. [facility] will need to be notified via [facility] at the time of discharge. Will follow. 07/02/23 1049 Discharge Planning Home or Post Acute Services In home services Type of Home Care Services Home nursing visits Patient expects to be discharged to: Home with [facility] Does the patient need discharge transport arranged? [...] line position verification COMPARISON: 03/17/2023 ACCESSION NUMBER(S): [id number] ORDERING CLINICIAN: DOLORES COX TECHNIQUE: Single AP view chest FINDINGS: Cardiomediastinal silhouette is within normal limits. Right-sided PICC line identified with tip in the region of the mid SVC. No infiltrate or effusion is identified. Visualized osseous structures unremarkable. Impression: 1. Right PICC line placement with tip in the mid SVC. 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 Report Amended Report Amended By: [id number] Magaña MD Date and Time: 06/30/2023 at [...] patient follow up with Dr. Morel at [facility] for intestinal rehab Start trickle TF today Continue TPN Stop tramadol, switch to percocet as patient has been on this in the past Continue IV morphine for breakthrough pain Zofran PRN Asthma Stable, not in exacerbation HTN Stable Hypothyroidism Continue home synthroid GERD Continue PPI Dispo: if patient is tolerating TF and symptoms are improved tomorrow, will plan to discharge home with [facility]. Kina Ann MD * Shelley Nash APRN-RADIOCOMMUNICATIONS TECHNICIAN - 07/01/2023 2:37 PM EDT Abbey Garcia [...] renal failure superimposed on chronic kidney disease ([facility]) Hypokalemia Heart failure (Multi) 07/01/23 No surgical interventions planned. Pain management. Will need parenteral feeds as pt unableto tolerate JT feedings. Continue antiemetics, pain management. To follow up with her GI rehab program as previously recommended at [facility]. GS will sign off. I spent 15 minutes in the professional and overall care of this patient. JAMA Greenberg * Zoey Blanco RN - 07/01/2023 12:50 PM EDT Patient not medically clear. TCC met with patient to discuss discharge plans. Patient active with [facility] and would like to continue with RN only. External referral already placed andclinicals sent to agency through [facility]. They have accepted patient. Will follow. 07/01/23 1250 Discharge Planning Home or Post Acute Services In home services Type of Home Care Services Home nursing visits Patient expects to be discharged to: Home with [facility] Does the patient need discharge [...] 83 mL/hr, Last Rate: 83 mL/hr (06/30/23 829) dextrose 10 % in water (D10W), 75 mL/hr, Last Rate: 75 mL/hr (07/01/23 113) PRN medications PRN medications: acetaminophen OR acetaminophen, albuterol, alteplase, dextrose, dextrose, glucagon, glucagon, hydrOXYzine HCL, ondansetron, sodium chloride 0.9%, traMADol Vascular US mesenteric artery duplex complete Result Date: 07/01/[address] [place] [address] Vascular Lab Report [facility] US MESENTERIC ARTERY DUPLEX COMPLETE Patient Name: ABBEY FloresRenetta JOSE Reading Physician: Brandy Magaña MD Study Date: 06/30/2023 Ordering Provider: [id number] JAMIL Sandy ROMAINE MRN/PID: [id number] Fellow: Technologist: Leia Degroot RVT Date of /Age: 2 1990 / 33 years Technologist 2: Gender: F Admission Status: Inpatient Location Performed: [facility] 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 COMPARISON: 03/16/2023 ACCESSION NUMBER(S): [id number] ORDERING CLINICIAN: DAVID VALADEZ TECHNIQUE: Axial CT [...] Fly West 06/29/2023 11:53 PM Dictation workstation: [id number] CT abdomen pelvis w IV contrast Result [...] Trace ascites, also present on previous exams Director Funeral: JUANCARLOS Transcribe Date/Time: Jun 18 2023 3:00P Dictated by : KYLE HERNANDEZ MD This examination was interpreted and the report reviewed and electronically signed by: KYLE HERNANDEZ MD on Jun 18 2023 3:30PM EST CT abdomen pelvis w IV contrast Result Date: 06/06/2023 * * *Final Report* * * DATE OF EXAM: Jun 06 2023 5:47PM [facility] 0530 - CT ABD/PEL W IVCON [...] PROCESS. NO SIGNIFICANT INTERVAL CHANGE SINCE 12/06/2022. Director Funeral: JUANCARLOS Transcribe Date/Time: Jun 06 2023 7:08P [...] vascular cause. Recommend following up with the [facility] for intestinal rehab as recommended by her GI surgeon, Dr. Kat. Vascular surgery is signing off I spent 35 minutes in the professional and overall care of this patient. JAMA Lynn * Dolores Cox MD - 07/01/2023 11:17 AM EDT Abbey Garcai is a 33 y.o. female on day 1 of admission presenting with Epigastric pain. Subjective She presented to the hospital with abdominal pain. She had previously undergone laparoscopic sleeve gastrectomy, on 09/03/2020 at the [facility]. She has a gastrojejunostomy tube. [...] scheduled reglan. Dolores Cox MD * Keesha Guero - 07/01/2023 10:47 AM EDT Spiritual Care Visit Clinical Encounter Type Visited With: Patient Routine Visit: Follow-up Continue Visiting: Yes Values/Beliefs Spiritual Requests During Hospitalization: Shikha NPO Keesha Jack * Shanique Bradford RN - [...] RN - 06/30/2023 4:41 PM EDT 06/30/23 2950 Physical Activity On average, how many days [...] relatives? Twice How often do you attend hinduism or faith services? More than 4 Do you belong to any clubs or organizations such as hinduism groups, unions, fraternal or athletic groups, or [...] In the past 12 months has the [employer], gas, oil, or water [employer] threatened to shut off services in your [...] laparoscopic sleeve gastrectomy, on 09/03/2020 at the [facility]. She had a gastrojejunostomy tube. [...] for Epigastric pain. Pharmacy reviewed the patient's tismr-qh-fpdegtyhv medications and allergies for accuracy. Medications ADDED: Methocarbamol 750 mg TID Medications CHANGED: Buspirone 10 mg Mirtazapine 30 mg Miralax Topiramate 100 mg Medications REMOVED: Diazepam 5 mg Percocet 5 mg/325 mg The list below reflects the updated BUSINESS AREA DIRECTOR list. Comments regarding how patient may be [...] Low Nausea/vomiting Pharmacy has been updated to [facility] [employer]. Sources used to complete the med history include patient interview, BUSINESS AREA DIRECTOR list, dispense history Below are additional concerns with the patient's BUSINESS AREA DIRECTOR list. -Pt is no longer taking diazepam or Percocet -Added methocarbamol 750 mg TID -Buspirone, mirtazapine, Miralax and topiramate doses have changed Mariela Tesfaye PharmD Please reach out via [employer] for questions * Sherry Magaña [...] Dr. Deacon Kat, her general surgeon at [facility]. The plan from them is a referralto [facility] intestinal rehabilitation. Patient to follow up with Dr. Kats office. 06/30/23 at 8:28 AM - Sherry Magaña MD Addendum: There is conclusively no vascular etiology for patient's current pain syndrome. Needs to be referred ultimately to Dr. Deacon Kat and Intestinal Rehab unit at [facility] after stabilization. Duplex shows no compression of celiac axis or internal lesions. There is no stenosis of the celiac axis or SMA. CTA reviewed. No vascular compression documented in this [facility] Work Phone: 1([phone]) 356-183705-18-2024 Plan of care note* Care Plan - [...] monitored and maintained or improved Outcome: Progressing [facility] Work Phone: 1([phone]) 492-672305-18-2024 Miscellaneous Notes* Care Plan - Tory Mcmullen [...] no hearing aids. Her PCP is in [facility]; and [facility] [address] [facility]. She has a hx of gastric bypass, c/o abd pain. No anticipated discharge needs. DISCHARGE PLAN: [facility] [phone]) 727-197405-18-2024 Nurse Note* Tory Mcmullen RN - 07/03/2023 8:16 AM EDT Assumed care of patient at this time, patient is resting in bed with brake in place and call light in reach denies any needs [facility] Work Phone: [phone] Nurse Note* Grecia Schaffer RN - 07/03/2023 6:49 AM EDT Chg bath performed by this nurse. Gown and linens changed. Pt ambulated to the bathroom, pt reportsliquid dark, black stool ( not witnessed by nurse). [facility]05-17-2024 Plan of care note* Care Plan [...] did make progress toward the following goals. [facility] Work Phone: [phone]) [phone] Nurse Note* Yue Ferris RN - 07/02/2023 12:00 PM EDT Upon rounding right upper arm dual lumen PICC with current CHG dressing dry and intact. One port inuse, one with brisk blood return and flushes easily, clamped and Curos cap intact. [facility]05-16-2024 Plan of care note* Care Plan [...] monitored and maintained or improved Outcome: Progressing [facility]05-16-2024 Nurse Note* Edilia Darby RN - 07/01/2023 1:56 PM EDT CXR from today verifies picc tip in mid SVC. [facility]05-16-2024 Nurse Note* Edilia Darby RN - 07/01/2023 12:48 PM EDT Patient with Rt arm dual lumen picc, per patient was placed at [facility] about a month ago for TPN infusions. [...] tip placement is needed. RN to message [facility] Work Phone: [phone] Consult note* Fadumo Edge RDN, [place] - [...] renal failure superimposed on chronic kidney disease ([facility]) 06/29/2023 Anxiety Arthritis Asthma ([facility]) CPAP (continuous positive airway pressure) dependence Depression Disease of thyroid gland Dizziness GERD (gastroesophageal reflux disease) Hypothyroidism Irritable bowel syndrome with constipation Median arcuate ligament syndrome ([facility]) PCOS (polycystic ovarian syndrome) PONV (postoperative nausea [...] : 92.7 kg (204 lb 5.9 oz) 01/24/24 : 83.4 kg (183 lb 13.8 oz) [...] 75 mL/hr, Last Rate: 75 mL/hr (07/01/23 902) Dietary Orders (From admission, onward) Start Ordered 05/15/24 1748 May Participate in Room Service Once Question: . Answer: Yes 06/30/23 1748 06/30/23 0227 NPO Diet Except: Sips with meds; Effective now Diet effective now Question: Except: Answer: Sips with meds 06/30/23 0230 Nutrition Support Intake provides: 1420 kcals, 100 gm protein, 2000 mL total volume Estimated Needs: Estimated Energy Needs Total Energy Estimated Needs (kCal): (5281-1834) Total Estimated Energy Need per Day (kCal/kg): (25-30) Method for Estimating Needs: ABW Estimated Protein Needs Total Protein Estimated Needs (g): (59-71) Total Protein Estimated Needs (g/kg): (1-1.2) Method for Estimating Needs: ABW Estimated Fluid Needs Total Fluid Estimated Needs (mL): (2805-6272) Method for Estimating Needs: 1 mL/kcal Nutrition Diagnosis Nutrition Diagnosis: Nutrition Diagnosis Patient has Nutrition Diagnosis: Yes Diagnosis Status (1): New Nutrition Diagnosis 1: Altered GI function Related to (1): physiological causes As Evidenced by (1): need for TPN, cannot tolerate PO/ tube feed Nutrition Interventions/Recommendations Nutrition Interventions and Recommendations: Nutrition Prescription: Individualized Nutrition Prescription Provided for : 3490-5631 kcals, 59-71 gm protein via parentalnutrition Nutrition [...] Comment: 07/05/23 [facility] Work Phone: [phone] 272-452005-16-2024 Consult note* Fadumo Edge RDN, LD - [...] renal failure superimposed on chronic kidney disease ([facility]) 06/29/2023 Anxiety Arthritis Asthma ([facility]) CPAP (continuous positive airway pressure) dependence Depression Disease of thyroid gland Dizziness GERD (gastroesophageal reflux disease) Hypothyroidism Irritable bowel syndrome with constipation Median arcuate ligament syndrome ([facility]) PCOS (polycystic ovarian syndrome) PONV (postoperative nausea [...] Energy Needs Total Energy Estimated Needs (kCal): (0070-5830) Total Estimated Energy Need per Day (kCal/kg): (25-30) Method for Estimating Needs: ABW Estimated Protein Needs Total Protein Estimated Needs (g): (59-71) Total Protein Estimated Needs (g/kg): (1-1.2) Method for Estimating Needs: ABW Estimated Fluid Needs Total Fluid Estimated Needs (mL): (8155-3153) Method for Estimating Needs: 1 mL/kcal Nutrition Diagnosis Nutrition Diagnosis: Nutrition Diagnosis Patient has Nutrition Diagnosis: Yes Diagnosis Status (1): New Nutrition Diagnosis 1: Altered GI function Related to (1): physiological causes As Evidenced by (1): need for TPN, cannot tolerate PO/ tube feed Nutrition Interventions/Recommendations Nutrition Interventions and Recommendations: Nutrition Prescription: Individualized Nutrition Prescription Provided for : 2965-1446 kcals, 59-71 gm protein via parentalnutrition Nutrition [...] for which she follows a surgeon at [facility]. They have been trying to [...] renal failure superimposed on chronic kidney disease ([facility]) (06/29/2023), Anxiety, Arthritis, Asthma ([facility]), CPAP (continuous positive airway pressure) dependence, Depression, Disease of thyroid gland, Dizziness, GERD (gastroesophageal reflux disease), H ypothyroidism, Irritable bowel syndrome, Median arcuate ligament syndrome ([facility]), PCOS (polycystic ovarian syndrome), PONV (postoperative nausea and vomiting), PUD (peptic ulcer disease), and Shortness of breath. She has no past medical history of Autoimmune disorder (Multi), Bipolar disorder (Multi), BPH (benign prostatic hyperplasia), Cerebral aneurysm ([facility]), Cervical cancer (Multi), Cervical disc disease, Chronic kidney disease, CKD (chronic kidney disease), Cognitive decline, Crohn's disease (Multi), Dementia (Multi), Dysphagia, Endometrial cancer (Multi), Esophageal cancer (Multi), Esophageal disease, ESRD (end stage renal disease) (Multi), Fibromyalgia, primary, Fractures, Gastric cancer (Multi), Gender dysphoria, GI (gastrointestinal bleed), Hemodialysis status ([facility] Hernia, internal, H istory of peritoneal dialysis, HIV disease (Multi), Immunocompromised (Multi), Liver disease, Lumbar disc disease, Mastocytosis, MS (multiple sclerosis) (Multi), Muscular dystrophy (Multi), Myasthenia gravis (Multi), Neuromuscular disorder (Multi), Ovarian cancer (Multi), Pancreatitis ([facility] [...] Yellow, Dark-Yellow Appearance, Urine Clear Clear Specific [place], Urine 1.023 1.005 - 1.035 pH, Urine [...] Audie Gutierrez 06/30/2023 12:06 PM Dictation workstation: [id number] Vascular US mesenteric artery duplex complete Result Date: 06/30/2023 Preliminary Cardiology Report [facility] [id number] [place] [address] Preliminary Vascular Lab Report VASC US MESENTERIC ARTERY DUPLEX COMPLETE Patient Name: ABBEY Oneil Physician: [id number] Sherry Magaña MD Study Date: 06/30/2023 Ordering Provider: [id number] JAMIL GAVIN MRN/PID: [id number] Fellow: Technologist: Leia Degroot RVT Date of : 1990 Technologist 2: Gender: F Admission Status: Inpatient Location Performed: [facility] 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 COMPARISON: 03/16/2023 ACCESSION NUMBER(S): [id number] ORDERING CLINICIAN: DAVID VALADEZ TECHNIQUE: Axial CT [...] Fly West 06/29/2023 11:53 PM Dictation workstation: [id number] Assessment/Plan Abdominal pain FTT 33-year-old female with complicated history after gastric bypass surgery. She has been working witha surgeon at [facility] to advance her tube feeds and oral intake and decrease the TPN, however this has been unsuccessful. She was evaluated by Dr. Magaña here and there is no evidence of celiac or SMA stenosis or compression. There is an intestinal rehabilitation program through [facility] and recommend follow-up with that program. Cont TPN for nutrition and PO/tube feeds as tolerated in the meantime Tomasa Ortiz MD * JAMA Slois - 06/30/2023 11:27 AM EDTAssociated Order(s): Inpatient [...] nausea aftera gastric bypass surgery done at [facility] in which she has been hospitalized [...] 06/30/2023 BUN 14 06/30/2023 CREATININE 0.60 06/30/2023 Electronically signed by Lizzy Bentley, AMMONIA SOLUTION PREPARER-RADIOCOMMUNICATIONS TECHNICIAN at 06/30/2023 12:07 PM EDT * Tiffanie Mandy Mendez, AMMONIA SOLUTION PREPARER-RADIOCOMMUNICATIONS TECHNICIAN - 06/30/2023 8:31 AM EDTAssociated Order(s): IP CONSULT TO VASCULAR SURGERY Reason for Consult Mid epigastric abdominal pain History Of Present Illness This is a 33-year-old female with past medical history of chronic abdominal pain, PCOS, PUD, depression, GERD, IBS, obesity (status post laparoscopic sleeve gastrectomy in August [address] Ku [id number] gastric bypass 01/29/[address] Kat) and median arcuate ligament syndrome who presented to the emergency department for further evaluation of mid epigastric abdominal pain and nauseaRenetta jose follows with GI and general surgery with the [facility] and is currently on TPN [...] also spoke with her general surgeon at [facility] where patient was advised for referral to [facility] intestinal rehabilitation. Past Medical History Past Medical History: Diagnosis Date Acute renal failure superimposed on chronic kidney disease (CMS-HCC) 06/29/2023 Anxiety Arthritis Asthma ([facility]) CPAP (continuous positive airway pressure) dependence [...] Insecurity: No Food Insecurity (06/07/2023) Received from [facility] Hunger Vital Sign Worried About Running Out of Food in the Last Year: Never true Ran Out of Food in the Last Year: Never true Transportation Needs: No Transportation Needs (06/07/2023) Received from [facility] PRAPARE - Transportation Lack of Transportation (Medical): No Lack of Transportation (Non-Medical): No Physical Activity: Insufficiently Active (10/28/2022) Received from [facility] Exercise Vital Sign Days of Exercise per Week: 4 days Minutes of Exercise per Session: 30 min Stress: Stress Concern Present (10/28/2022) Received from [facility] [employer] - Occupational Stress Questionnaire Feeling of Stress : To some extent Social Connections: Socially Integrated (10/28/2022) Received from [facility] Social Connection and Isolation Panel [NHANES] Frequency of Communication with Friends and Family: More than three times a week Frequency of Social Gatherings with Friends and Family: Once a week Attends Christian Services: 1 to 4 times per year Active Member of Clubs or Organizations: Yes Attends Club or Organization Meetings: More than 4 times per year Marital Status: Intimate Partner Violence: Not on file Housing Stability: Low Risk (06/07/2023) Received from [facility] Housing Stability Vital Sign [...] Yellow, Dark-Yellow Appearance, Urine Clear Clear Specific [place], Urine 1.023 1.005 - 1.035 pH, Urine [...] INDICATION: Signs/Symptoms:Abdominal pain. COMPARISON: 03/16/2023 ACCESSION NUMBER(S): [id number] ORDERING CLINICIAN: DAVID VALADEZ TECHNIQUE: Axial CT [...] Fly West 06/29/2023 11:53 PM Dictation workstation: [id number] Physical exam Constitutional: Alert and oriented to [...] for episodes of hypoglycemia [facility]: 1([phone]) [phone] Nurse Note* Mayda Balbuena LPN - 07/01/2023 2:30 AM EDT Pt alert and oriented, long intact, clear yellow urine , medicated twice for left epigastric pain with somewhat effect, TPN running at 83ml/hr, tolerating well, no sign of adverse reaction, pt remain NPO , sips with meds, pt in no acute distress, all safety measures in place, call light within reach. [facility]05-15-2024 Plan of care note* Care Plan - Mayda Balbuena LPN - 06/30/2023 10:12 PM EDT The patient's goals for the shift include feel better The clinical goals for the shift include pain control [facility] Work Phone: [phone] Consult note* Tomasa Ortiz MD - 06/30/2023 [...] for which she follows a surgeon at [facility]. They have been trying to [...] renal failure superimposed on chronic kidney disease ([facility]) (06/29/2023), Anxiety, Arthritis, Asthma ([facility]), CPAP (continuous positive airway pressure) dependence, Depression, Disease of thyroid gland, Dizziness, GERD (gastroesophageal reflux disease), H ypothyroidism, Irritable bowel syndrome, Median arcuate ligament syndrome ([facility]), PCOS (polycystic ovarian syndrome), PONV (postoperative nausea and vomiting), PUD (peptic ulcer disease), and Shortness of breath. She has no past medical history of Autoimmune disorder (Multi), Bipolar disorder (Multi), BPH (benign prostatic hyperplasia), Cerebral aneurysm ([facility]), Cervical cancer (Multi), Cervical disc disease, Chronic kidney disease, CKD (chronic kidney disease), Cognitive decline, Crohn's disease (Multi), Dementia (Multi), Dysphagia, Endometrial cancer (Multi), Esophageal cancer (Multi), Esophageal disease, ESRD (end stage renal disease) (Multi), Fibromyalgia, primary, Fractures, Gastric cancer (Multi), Gender dysphoria, GI (gastrointestinal bleed), Hemodialysis status ([facility]), Hernia, internal, H istory of peritoneal dialysis, HIV disease (Multi), Immunocompromised (Multi), Liver disease, Lumbar disc disease, Mastocytosis, MS (multiple sclerosis) (Multi), Muscular dystrophy (Multi), Myasthenia gravis (Multi), Neuromuscular disorder (Multi), Ovarian cancer (Multi), Pancreatitis ([facility] [...] Yellow, Dark-Yellow Appearance, Urine Clear Clear Specific [place], Urine 1.023 1.005 - 1.035 pH, Urine [...] Audie Gutierrez 06/30/2023 12:06 PM Dictation workstation: [id number] Vascular US mesenteric artery duplex complete Result Date: 06/30/2023 [place] [address] Preliminary Vascular Lab Report [facility] US MESENTERIC ARTERY DUPLEX COMPLETE Patient Name: ABBEY GARCIA Reading Physician: [id number] Sherry Magaña MD Study Date: 06/30/2023 Ordering Provider: [id number] JAMIL GAVIN MRN/PID: [id number] Fellow: Technologist: Leia Degroot RVT Date of : 1990 Technologist 2: Gender: F Admission Status: Inpatient Location Performed: [facility] 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 COMPARISON: 03/16/2023 ACCESSION NUMBER(S): [id number] ORDERING CLINICIAN: DAVID VALADEZ TECHNIQUE: Axial CT [...] Fly West 06/29/2023 11:53 PM Dictation workstation: [id number] Assessment/Plan Abdominal pain FTT 33-year-old female with complicated history after gastric bypass surgery. She has been working witha surgeon at [facility] to advance her tube feeds and oral intake and decrease the TPN, however this has been unsuccessful. She was evaluated by Dr. Magaña here and there is no evidence of celiac or SMA stenosis or compression. There is an intestinal rehabilitation program through [facility] and recommend follow-up with that program. Cont TPN for nutrition and PO/tube feeds as tolerated in the meantime Tomasa Ortiz MD [facility] Work Phone: 1(775) 666-490005-15-2024 Plan of care note* Care Plan - [...] no hearing aids. Her PCP is in [facility]; and [facility]. She has a hx of gastric bypass, c/o abd pain. No anticipated discharge needs. DISCHARGE PLAN: HOME WITH [facility] Work Phone: 1([phone]) 111-719805-15-2024 Consult note* JAMA Solis - 06/30/2023 11:27 [...] nausea aftera gastric bypass surgery done at [facility] in which she has been hospitalized [...] 06/30/2023 BUN 14 06/30/2023 CREATININE 0.60 06/30/2023 [facility] Work Phone: 1(289) 555-200605-15-2024 Consult note* JAMA Judd - 06/30/2023 8:31 AM EDTAssociated Order(s): IP CONSULT TO VASCULAR SURGERY Reason for Consult Mid epigastric abdominal pain History Of Present Illness This is a 33-year-old female with past medical history of chronic abdominal pain, PCOS, PUD, depression, GERD, IBS, obesity (status post laparoscopic sleeve gastrectomy in August [address] Ku [id number]-A gastric bypass 01/29/[address] Kat) and median arcuate ligament syndrome who presented to the emergency department for further evaluation of mid epigastric abdominal pain and nausea. Jonh jose follows with GI and general surgery with the [facility] and is currently on TPN [...] also spoke with her general surgeon at [facility] where patient was advised for referral to [facility] intestinal rehabilitation. Past Medical History Past Medical History: Diagnosis Date Acute renal failure superimposed on chronic kidney disease ([facility]) 06/29/2023 Anxiety Arthritis Asthma ([facility]) CPAP (continuous positive airway pressure) dependence Depression Dizziness GERD (gastroesophageal reflux disease) Hypothyroidism Irritable bowel syndrome with constipation Median arcuate ligament syndrome ([facility]) PCOS (polycystic ovarian syndrome) PONV (postoperative nausea [...] Insecurity: No Food Insecurity (06/07/2023) Received from [facility] Hunger Vital Sign Worried About Running Out of Food in the Last Year: Never true Ran Out of Food in the Last Year: Never true Transportation Needs: No Transportation Needs (06/07/2023) Received from [facility] PRAPARE - Transportation Lack of Transportation (Medical): No Lack of Transportation (Non-Medical): No Physical Activity: Insufficiently Active (10/28/2022) Received from [facility] Exercise Vital Sign Days of Exercise per Week: 4 days Minutes of Exercise per Session: 30 min Stress: Stress Concern Present (10/28/2022) Received from [facility] [employer] - Occupational Stress Questionnaire Feeling of Stress : To some extent Social Connections: Socially Integrated (10/28/2022) Received from [facility] Social Connection and Isolation Panel [NHANES] Frequency of Communication with Friends and Family: More than three times a week Frequency of Social Gatherings with Friends and Family: Once a week Attends Christian Services: 1 to 4 times per year Active Member of Clubs or Organizations: Yes Attends Club or Organization Meetings: More than 4 times per year Marital Status: Intimate Partner Violence: Not on file Housing Stability: Low Risk (06/07/2023) Received from [facility] Housing Stability Vital Sign [...] Yellow, Dark-Yellow Appearance, Urine Clear Clear Specific [place], Urine 1.023 1.005 - 1.035 pH, Urine [...] INDICATION: Signs/Symptoms:Abdominal pain. COMPARISON: 03/16/2023 ACCESSION NUMBER(S): [id number] ORDERING CLINICIAN: DAVID VALADEZ TECHNIQUE: Axial CT [...] Fly West 06/29/2023 11:53 PM Dictation workstation: [id number] Physical exam Constitutional: Alert and oriented to [...] Needs further workup for episodes of hypoglycemia [facility] Work Phone: 1(436) 415-662405-15-2024 Emergency department Note* Carla Alejo LPN - 06/30/2023 6:43 AM EDT Patient in gown at this time no c/o pain or discomfort no needs made known at this time Patient sleeping, chest rises and falls at equal intervals and patient takes breaths. Responds verbaly to calling of name and acknowledges this nurses presence in room Carla Alejo LPN 06/30/23 0645 [facility]05-15-2024 Emergency department Note* Carla Alejo LPN - [...] Carla Alejo LPN 06/29/232057 * David Dykes Komalcatherine, - 06/29/2023 5:37 PM EDT HPI Chief [...] renal failure superimposed on chronic kidney disease ([facility]) 06/29/2023 Anxiety Arthritis Asthma ([facility]) CPAP (continuous positive airway pressure) dependence Depression Dizziness GERD (gastroesophageal reflux disease) Hypothyroidism Irritable bowel syndrome with constipation Median arcuate ligament syndrome ([facility]) PCOS (polycystic ovarian syndrome) PONV (postoperative nausea [...] Cedrick Efra Heart disease Maternal Grandfather Cedrick Kraus Kidney disease Maternal Grandfather Cedrick Reynosoes Hypertension Maternal Grandmother Grandpa Anesthesia problems Paternal [...] interpretation: Sinus rhythm 59 bpm normal axis MT interval 140 QTc 453 no ectopy or acute ischemic changes noted [KW] ED Course User Index [KW] David Valadez DO Diagnoses as of 06/30/23 0244 Epigastric pain Nausea and vomiting, unspecified [...] Alejo LPN 06/29/23 2312 [facility] Phone: 1([phone]) [phone] Emergency department Note* Carla Alejo LPN - 06/30/2023 5:48 AM EDT Patient vitals taken, labs drawn and sent and patient medicated for pain , vitals taken and charted, no c/o discomfort or other needs at this time Carla Alejo LPN 06/30/23 0549 [facility] Work Phone: 1(403) 632-947305-15-2024 History and physical note* Baldomero Woodard MD - 06/30/2023 2:40 AM EDT History Of Present Illness Abbey Garcia is a 33 y.o. female presenting with 2-year history of abdominal pain and nausea after a gastric bypass surgery done at [facility] she has been hospitalized multiple times for this. She has a combination gastric tube jejunostomy tube which is supposed to be used for tube feeds she is on TPN. She has a surgeon at [facility] but she also sees Dr. Magaña [...] Onset Diabetes Mother Jessica Artino Hypertension Mother Jessicagrace Jeterino Cancer Maternal Grandfather Cedrick Kraus COPD [...] get her nausea under control with Reglan xmziz-cwp-jbypc will consult general surgery to help with this complicated acute on chronic situation will order subcu heparin IV Protonix will make sure her gastric tube in her J- tube gets flushed. 3 times a day will order most of her home meds the way she takes them at home either by mouth or for through the J-tube. Baldomero Woodard MD [facility] Work Phone: 1(589) 130-917605-15-2024 History and physical note* Baldomero Woodard MD - 06/30/2023 2:40 AM EDT History Of Present Illness Abbey Garcia is a 33 y.o. female presenting with 2-year history of abdominal pain and nausea after a gastric bypass surgery done at [facility] she has been hospitalized multiple times for this. She has a combination gastric tube jejunostomy tube which is supposed to be used for tube feeds she is on TPN. She has a surgeon at [facility] but she also sees Dr. Magaña [...] Relation Name Age of Onset Diabetes Mother Jessicagrace Phipps Hypertension Mother Jessica Artino Cancer Maternal [...] get her nausea under control with Reglan btmed-sem-uauaq will consult general surgery to help with this complicated acute on chronic situation will order subcu heparin IV Protonix will make sure her gastric tube in her J- tube gets flushed. 3 times a day will order most of her home meds the way she takes them at home either by mouth or for through the J-tube. Baldomero Woodard MD documented in this [facility]: 1(203) 410-198705-14-2024 Emergency department Note* Carla Alejo LPN - 06/29/2023 8:57 PM EDT Assumed care of patient , labs drawn originally while tpn was attached and running , blood glucose redone via fingerstick with result of 117 and cbc/bmp reordered STAT , drawn and sent to lab Carla Alejo LPN 06/29/232057 [facility] Work Phone: 1(646) 153-278705-14-2024 Emergency department Note* Carla Alejo LPN - 06/29/2023 5:37 PM EDT medications held at this time per ED physician verbal order Carla Alejo LPN 06/29/232 [facility] Work Phone: 1(434) 117-205605-14-2024 Physician Emergency department Note* David Valadez DO [...] renal failure superimposed on chronic kidney disease ([facility]) 06/29/2023 Anxiety Arthritis Asthma ([facility]) CPAP (continuous positive airway pressure) dependence Depression Dizziness GERD (gastroesophageal reflux disease) Hypothyroidism Irritable bowel syndrome with constipation Median arcuate ligament syndrome ([facility]) PCOS (polycystic ovarian syndrome) PONV (postoperative nausea [...] interpretation: Sinus rhythm 59 bpm normal axis MT interval 140 QTc 453 no ectopy or [...] admission. Procedure Procedures David Valadez DO 06/30/23243 [facility] Work Phone: 1(403) 194-858805-07-2024 History of Present illness Narrative* Sherry Magaña MD - 06/22/2023 11:45 AM EDT Patient and I had a video conference as she was at home in [place] and I was at the [facility] vascular center. She reports doing poorly with [...] conference was 10 minutes documented in this [facility] Work Phone: 1(846) 472-979705-03-2024 Note [id number]#1.00[facility] 06-18-2023 History of Present illness Narrative* Breanna Stern APRN.RADIOCOMMUNICATIONS TECHNICIAN - 06/18/2023 10:00 AM EDT Assessment Postoperative [...] Kat Follow up with Dr Jacquelyn Stern APRN.RADIOCOMMUNICATIONS TECHNICIAN documented in this encounterMer[facility]05-03-2024 [facility] Nurse Note* Yaneth Mitchell MA - 06/18/2023 9:35 AM EDT What is the reason for your visit today? Post op PEG-J placement Who is your referring physician? Are you having poor oral intake? YES Have you had unintentional weight loss of 15 lbs/7 Kg in the last 3-6 months? NO Bowels: diarrhea Wound: Temperature: No Drains: No [facility]05-03-2024 Nurse Note* Yaneth Mitchell MA - 06/18/2023 9:35 AM EDT What is the reason for your visit today? Post op PEG-J placement Who is your referring physician? Are you having poor oral intake? YES Have you had unintentional weight loss of 15 lbs/7 Kg in the last 3-6 months? NO Bowels: diarrhea Wound: Temperature: No Drains: No documented in this encounterMercy Health [facility]05-02-2024 Telephone encounter Note * [...] with scheduling provider for ketamine refill appt. [facility]05-02-2024 Miscellaneous Notes* Telephone Encounter [...] for ketamine refill appt. documented in this encounterMercy Health [facility]05-02-2024 Telephone encounter Note * Telephone Encounter - Serena Neff - 06/17/2023 11:40 AM EDT Phoned Malka back with Dr. Kat's response. He will not be managing patient's TPN. Malka advised that she arranged for hospitalist to manage. Serena Neff RN BSN Zoning Assistant for Dr. Kat [facility]05-02-2024 Miscellaneous Notes* Telephone Encounter - Serena Neff - 06/17/2023 11:40 AM EDT Phoned Malka back with Dr. Kat's response. He will not be managing patient's TPN. Malka advised that she arranged for hospitalist to manage. Serena Neff RN BSN Zoning Assistant for Dr. Kat * Telephone Encounter - Dorita Manning - 06/15/2023 3:20 PM EDT Malka from [facility] calling asking if Dr Kat will follow patient for TPN. Physician there is discharging patient on TPN. CB# [phone] ext [phone] documented in this encounterMercy [facility]04-30-2024 Telephone encounter Note * Telephone Encounter - Dorita Manning - 06/15/2023 3:20 PM EDT Malka from [facility] calling asking if Dr Kat will follow patient for TPN. Physician there is discharging patient on TPN. CB# [phone] ext [phone] [facility]04-30-2024 [id number]04-29-2024 Telephone encounter Note* Telephone Encounter - Stephanie Sumner DO - 06/14/2023 4:39 PM EDT Hospital Medicine Transfer Received page for transfer request from [facility] to [place]: Abbey Garcia is 33 year old female who presented with nausea, vomiting and worsening LUQ pain. Pt has complicated gastric surgery history and is currently doing TF via PEG for nutrition. Per [facility] pt is HDS and electrolytes are stable. Pt is requesting transfer to because that is where her care team is and states she only went to [facility] because they have short wait times. ED team gave IVF and IV pain meds which improved LUQ pain somewhat. Pts notified Dr Kat that she was going to ED. Reason for transfer: continuity of care Accepted to hospital medicine service at [place] Stephanie Sumner DO 4:39 PM [facility] Work Phone: 1(879) 302-844204-29-2024 Miscellaneous Notes* Telephone Encounter - Stephanie Sumner DO - 06/14/2023 4:39 PM EDT Hospital Medicine Transfer Received page for transfer request from [facility] to [place]: Abbey Garcia is 33 year old female who presented with nausea, vomiting and worsening LUQ pain. Pt has complicated gastric surgery history and is currently doing TF via PEG for nutrition. Per [facility] pt is HDS and electrolytes are stable. Pt is requesting transfer to because that is where her care team is and states she only went to [facility] because they have short wait times. ED team gave IVF and IV pain meds which improved LUQ pain somewhat. Pts notified Dr Kat that she was going to ED. Reason for transfer: continuity of care Accepted to hospital medicine service at [place] Stephanie Sumner DO 4:39 PM documented in this encounterMercy Health [facility]04-29-2024 Telephone encounter Note * Telephone Encounter - Serena Neff - 06/14/2023 3:31 PM EDT Phoned patient and to discuss ED admission today. Pt is being transferred from [facility] to [facility]. Patient complaining of worsening left sided [...] at this time. Serena Neff RN BSN Zoning Assistant for Dr. Kat [facility]04-29-2024 Miscellaneous Notes* Telephone Encounter - Serena Neff - 06/14/2023 3:31 PM EDT Phoned patient and to discuss ED admission today. Pt is being transferred from [facility] to [facility]. Patient complaining of worsening left sided [...] at this time. Serena Neff RN BSN Zoning Assistant for Dr. Kat documented in this encounterMercy Health [facility]04-26-2024 Note [id number] 06-09-2023 NoteHNO ID: [id number] Author: PABLO LEBRON PSYD Service: ? Author Type: Psychologist Type: Progress Notes Filed: 06/09/2023 09:52 Note Text: Assessment was conducted virtually. Patient is a resident of [place], and completed the assessment virtually in [place]. Psychologist is licensed and stationed in [place]. 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 Appreciative of supportive and [...] Focused Psychotherapy, Supportive Therapy PROGRESS TO DATE: Prepared Foods Supervisor Progress: Stable Short Term Condition: Stable GOALS/OBJECTIVES/INTERVENTIONS: To identify and implement tools for effectively managing symptoms of anxiety, stress, and low mood. Approximately 45 minutes were spent with the patient doing therapy. [facility] History of Present illness Narrative* Pablo Lebron, [facility] - 06/09/2023 8:59 AM EDT Assessment was conducted virtually. Patient is a resident of [place], and completed the assessment virtually in [place]. Psychologist is licensed and stationed in [place]. Informed consent was discussed and verbal assent was granted by the patient. GENERAL PSYCHOLOGY Session #: 4 (session count starts after [facility] visit) SUBJECTIVE: Major surgery February 2023 (difficult recovery; in and out of hospital due to malnutrition and dehydration, home health aid). Currently in hospital (difficulty with feeding tube) --- feeling better from med tx. 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 Appreciative of supportive and [...] Focused Psychotherapy, Supportive Therapy PROGRESS TO DATE: Custodial Progress: Stable Short Term Condition: Stable GOALS/OBJECTIVES/INTERVENTIONS: To identify and implement tools for effectively managing symptoms of anxiety, stress, and low mood. Approximately 45 minutes were spent with the patient doing therapy. Pablo Lebron PsyD documented in this encounterMercy Health [facility]04-23-2024 [facility] 06-07-2023 [facility]Rfkoottt71-48-3877 [facility]04-16-2024 [facility]04-16-2024 History of Present illness Narrative* Vic Ramos MD - 06/01/2023 4:28 PM EDT TELEMEDICINE VISIT Modified Protocol for treatment of other conditions supportive of goal to minimize vulnerable patient exposure to Covid-[address] [facility] Emergency Consented for encounter Patient verified by name and Abbey Garcia [id number] 1990 Patient consents to virtual visit Patient located at home Dr. Ramos located at [facility] office SUBJECTIVE: The patient [facility] for [...] which included preparing to see the patient, tpcq-az-kxwk patient care, completing clinical documentation, obtaining and/or [...] MD June 01, 2023 documented in this encounterMercy Health [facility]04-15-2024 Note [id number] 05-30-2023 Miscellaneous Notes* Telephone Encounter - Deacon Kat MD - 05/30/2023 10:16 AM EDT Significant constipation - no bm since Wednesday, a lot of rectal pressure. Tried her linzess, miralax. Recommended enema OTC + dulcolax suppository. Contact me if not improved. Deacon Kat MD documented in this encounterMercy Health [facility]04-12-2024 Miscellaneous Notes* Telephone Encounter - Nabila Jackson RPh - 05/28/2023 5:48 PM EDT ERx for Nutren sent to [facility]. These orders are unable to be processed here, but may be eligible to fill using [facility] [place]. Please review and if appropriate, send forward for processing. Thank you! [facility] [phone] documented in this encounterMercy Health [facility] Center04-12-2024 [facility] 05-28-2023 Miscellaneous Notes* Telephone Encounter - Grecia [...] and advise. Grecia Wallace documented in this [facility]04-12-2024 [facility] 05-27-2023 NoteHNO ID: [id number] Author: EH KIMBALL, RN Service: Nursing Author Type: Registered Nurse Type: Nursing Progress Note Filed: 05/27/2023 09:20 Note Text: Other: 0900 Pt verbalizes interest about bolus feeding. Director Dental Services made aware. [facility] HospitalOabckemj15-11-3138 NoteLawrence General HospitalXwdpjrfv73-62-1901 NoteLawrence General HospitalChbjmmik30-11-7931 NoteLawrence General HospitalZxqigqhr36-20-4658 Note [id number] 05-22-2023 NoteLawrence General HospitalPqfnpnrm62-44-8392 NoteLawrence General HospitalNoxihcld01-12-4236 Note [facility] HospitalZljblitt03-71-2140 NoteLawrence General HospitalYvanmbnf73-79-2918 Telephone encounter Note* Telephone Encounter - Itzel Hurley RN - 05/18/2023 9:25 AM EDT Images from the original note were not included. EGD images; please review [facility] EGD Report 05/12/2023 [facility]04-02-2024 Miscellaneous Notes* Telephone Encounter [...] Please review thank you! documented in this encounterMercy Health [facility] Center04-02-2024 Telephone encounter Note * Telephone Encounter - Silvina Brown - 05/18/2023 9:20 AM EDT Received records from [facility]. EGD dated 05/12/2023 Discharge Summary 05/11 to 05/14/2023 Ct Abdomen/Pelvis 05/11/2023 Please review thank you! [facility]04-01-2024 Hospital Discharge instructions Patient [...] at pharmacies and retail stores. Eat bland, chct-xj-utzhcy foods in small amounts as you are [...] and water are not available, use hand braille teacher. Make sure that everyone in your household washes their hands frequently. Take vtsz-kra-xzpyakn and prescription medicines only as told by [...] and water are not available, use hand braille teacher. Watch your condition for any changes and for signs of dehydration. Keep all follow-up visits. This is important. This information is not intended to replace advice given to you by your health care provider. Make sure you discuss any questions you have with your health care provider. Document Revised: 08/08/2021 Document Reviewed: 08/08/2021 [employer] Patient Education 2022 [employer]. Follow Up Care 05/17/2023 14:15:17 With:Jaquan Paula FAM, MED Address: When:05/20/2023 [facility]04-01-2024 History of Present illness Narrative* Deacon Kat MD - 05/17/2023 2:40 PM EDT VIRTUAL VISIT PROGRESS NOTE This is a virtual visit using [employer] Zoom Video Visit. It required patient- provider interaction for the medical decision making as documented below. I have communicated my name and active licensure. The patient's identity and physical location wereverified at the time of this visit. Either the patient or their legal branch sales and service representative has been informed of the risks [...] PM -------- ORIGINAL REPORT -------- Dictation workstation: [id number] Impression Postsurgical changes from gastric bypass. No evidence for obstruction.. MACRO: none Signed by: Corie Garza 03/17/2023 5:00 PM Dictation workstation: [id number] Narrative Interpreted By: Corie Garza, STUDY: FL UPPER GI W DOUBLE CONTRAST W SMALL BOWEL FOLLOW THROUGH; 03/17/2023 4:40 pm INDICATION: Signs/Symptoms:abdominal pain. COMPARISON: None. ACCESSION NUMBER(S): [id number] ORDERING CLINICIAN: TIFFANIE MENDEZ TECHNIQUE: Multiple fluoroscopic spot images were obtained during a single contrast upper GI with KUB. Total fluoroscopy time: 1 minute 32 seconds Radiation exposure (Reference Air Kerma): 99.36 mGy Images: 2 spot images 7 series and 2 delayed AP views of the abdomen FINDINGS: Gasoline Tractor Operator images demonstrate postsurgical changes from previous Tan-en-Y [...] Corie Garza 03/16/2023 5:46 PM Dictation workstation: [id number] Narrative Interpreted By: Corie Garza, STUDY: CT ABDOMEN PELVIS W IV CONTRAST; 03/16/2023 5:27 pm INDICATION: Signs/Symptoms:abdominal pain - with oral and IV contrast. COMPARISON: None.. ACCESSION NUMBER(S): [id number] ORDERING CLINICIAN: TIFFANIE MENDEZ TECHNIQUE: Oral contrast [...] ER. Deacon Kat MD documented in this encounterMercy Health [facility]04-01-2024 [facility]04-[facility]-2024 Evaluation + Plan noteExtracted from: Title:ED Note [...] Appointment Date:05/19/2023 10:40:00 AM Scheduled Provider:Jaquan Paula Location:[facility] Appointment Type: Hospital Follow Up w/TCM Appointment Date:07/13/2023 08:20:00 AM Scheduled Provider:OLGA GATICA PA-C Location:[facility] Appointment Type:URO Office Visit Appointment Date:08/04/2023 09:45:00 AM Scheduled Provider:Rajni Rouse MD Location:[facility] Appointment Type:URO Office Visit Diagnostic Tests Pending * Drug Screen Urine 05/17/23 Future Scheduled Tests Radiology* US Renal 06/10/22 [facility]03-29-2024 Evaluation + Plan noteExtracted from: [...] When Contact Information Cristhian REDDING, Jaquan Johnson, [facility], MED Additional Instructions: Follow up with surgeon Additional Instructions: Appointment has already been scheduled Cannabinoid Hyperemesis Syndrome Nausea and Vomiting, Adult, Tryk-ts-Tglr Extracted from: Title:Progress Note * Author:Miguel JOHNSON, Rosalia Smith Date:05/14/23 Impression and Plan This is a 33-year-old lady with past medical history of gastric sleeve surgery in July 2020, complicated by significant reflux switch to Tan-en-Y January 2022 at [facility], [facility] surgery February 2023 which reported helped [...] Orders Sbsq Hospital Care/Day Moderate 35 Minutes 21381 2. Intractable abdominal pain (R10.9: Unspecified abdominal [...] 05/11 Bentyl, Carafate, PPI twice daily [facility]/Day Moderate 35 Minutes 63359 2. Intractable abdominal pain (R10.9: Unspecified abdominal [...] switch to Tan-en-Y January 2022 at [facility], [facility] surgery February 2023 which reported helped [...] switch to Tan-en-Y January 2022 at [facility], [facility] surgery February 2023 which reported helped [...] 2022 Author:Kuldip Arcos Jr, DO Date:05/12/23 Plan [place] Citizen Society of Anesthesiologists (ASA) physical status classification: [...] Ordered: Initial Hospital Care/Day Moderate [address] in Status 2. Intractable abdominal pain [...] Appointment Date:05/19/2023 10:40:00 AM Scheduled Provider:Jaquan Paula Location:[facility] Appointment Type: Hospital Follow Up w/TCM Appointment Date:07/13/2023 08:20:00 AM Scheduled Provider:OLGA GATICA PA-C Location:[facility] Appointment Type:URO Office Visit Appointment Date:08/04/2023 09:45:00 AM Scheduled Provider:Rajni Rouse MD Location:[facility] Appointment Type:URO Office Visit Diagnostic Tests Pending * Copper Level 05/14/23 * HIV Screen 4th Generation wRfx 05/14/23 * Acute Hepatitis A B C Panel 05/14/23 Future Scheduled Tests Radiology* US Renal 06/10/22 [facility]03-29-2024 Hospital Discharge instructions Patient Education [...] as coffee and soda. Take and apply qimq-xnq-ajjigql and prescription medicines only as told by [...] provider. Document Revised: 06/01/2022 Document Reviewed: 06/01/2022 [employer] Patient Education 2022 [employer]. 05/14/2023 11:56:24 Nausea and Vomiting, Adult, Isft-no-Mekg Nausea and Vomiting, Adult Nausea is feeling [...] fruit juice). ?Low-calorie sports drinks. Eat bland, btck-vq-zdyogt foods in small amounts as you are able, such as: ?Bananas. ?Applesauce. ?Rice. ?Low-fat (lean) meats. ?[place]. ?Crackers. Avoid drinking fluids that have a lot of sugar or caffeine in them. This includes energy drinks, sports drinks, and soda. Avoid alcohol. Avoid spicy or fatty foods. General instructions Take vodw-koh-pgizqmm and prescription medicines only as told by your doctor. Drink enough fluid to keep your pee (urine) pale yellow. Wash your hands often with soap and water for at least 20 seconds. If you cannot use soap and water, use hand braille teacher. Make sure that everyone in your home [...] your doctor about eating and drinking. Take hhig-erm-bozqolu and prescription medicines only as told by your doctor. Contact your doctor if your symptoms get worse or you have new symptoms. Keep all follow-up visits. This information is not intended to replace advice given to you by your health care provider. Make sure you discuss any questions you have with your health care provider. Document Revised: 08/08/2021 Document Reviewed: 08/08/2021 [employer] Patient Education 2022 [employer]. Follow Up Care 05/12/2023 09:23:09 With:Patient has [facility] Home Health in place Address:Unknown When: Unknown With:Jaquan Paula, [facility], [facility] Address: [address] [place] [address] [facility] (1) When: Unknown With:Follow up with surgeon Address: When: Unknown Comments:Appointment has already been scheduled [facility]03-29-2024 [facility]Comment [facility]:Result Comment: Electronically Signed By: Moncho Trejo DO.br\Date and Time Signed: 05/14/23 12:06 [id number] [facility] HospitalComment on above:Result Comment: Electronically Signed By: Moncho Trejo DO.br\Date and Time Signed: 05/12/23 12:59 [id number] Hospital Discharge instructions Patient Education 05/11/2023 16:46:23 Abdominal Pain, Adult, Imei-gv-Unts Abdominal Pain, Adult Many things can cause belly (abdominal) pain. Most times, belly pain is not dangerous. Many cases of belly pain can be watched and treated at home. Sometimes, though, belly pain is serious. Your doctor will try to find the cause of your belly pain. Follow these instructions at home: Medicines Take qwlu-jrl-uqjlmma and prescription medicines only as told by [...] your belly pain for any changes. Take fmvj-btq-aiajcbw and prescription medicines only as told by [...] provider. Document Revised: 06/12/2019 Document Reviewed: 06/12/2019 [employer] Patient Education 2022 [employer]. Follow Up Care 05/11/2023 11:48:15 With:Miguel JOHNSON, APRYL Bean, [facility] Address: [address], [address] [facility] [address] [place] [phone] When:2 to 4 days Comments:Call today to schedule your follow upReturn to ED if symptoms worsen [facility]03-26-2024 Evaluation + Plan noteExtracted from: [...] Date:07/13/2023 08:20:00 AM Scheduled Provider:OLGA GATICA PA-C Location:[facility] Appointment Type:URO Office Visit Appointment Date:08/04/2023 09:45:00 AM Scheduled Provider:Rajni Rouse MD Location:[facility] Appointment Type:URO Office Visit Future Scheduled Tests Radiology* US Renal 06/10/22 [facility]03-25-2024 Miscellaneous Notes* Telephone Encounter - Serena Neff - 05/10/2023 2:51 PM EDT Patient scheduled with Dr. Kat on 05/11. Serena Neff RN BSN Zoning Assistant for Dr. Kat * Telephone Encounter - [...] by Dr. Kat. Serena Neff RN BSN Zoning Assistant for Dr. Kat * Telephone Encounter - Dorita Manning - 05/10/2023 10:44 AM EDT Patients calling concerned about Abbey. She has been in the ER 2 times in the last 4 days. She was told to speak to DR who originally put her on TPN to discuss getting back on it. CB# [phone] documented in this encounter[facility] Hospital Discharge instructions Patient [...] Follow these instructions at home: Medicines Take sypa-iqg-ioerjid and prescription medicines only as told by [...] Watch your condition for any changes. Take yqov-bjx-oromadx and prescription medicines only as told by [...] provider. Document Revised: 03/22/2020 Document Reviewed: 06/12/2019 [employer] Patient Education 2022 [employer]. Follow Up Care 05/09/2023 11:38:04 With:Earnest Oakes Address: [facility] [address], [facility] [address] [phone] Business (1) When:05/12/2023 15:51:27 With:Jon Rivera Address: [facility] [address], [facility] [address] [address]- [phone] Business (1) When:05/12/2023 15:51:00 With:Jaquan Morrow Address: [address] [place] [phone] Business (1) When:05/12/2023 15:50:53 [facility]03-24-2024 Evaluation + Plan noteExtracted from: Title:ED Note Author:Blanca QUIROZ, Lonnie Arroyo te:05/09/23 Chronic abdominal pain (R10. 9: Unspecified [...] Date:07/13/2023 08:20:00 AM Scheduled Provider:OLGA GATICA PA-C Location:[facility] Appointment Type:URO Office Visit Appointment Date:08/04/2023 09:45:00 AM Scheduled Provider:Rajni Rouse MD Location:[facility] Appointment Type:URO Office Visit Future Scheduled Tests Radiology* US Renal 06/10/22 [facility]03-22-2024 Miscellaneous Notes* Telephone Encounter - Yvette Morgan - 05/07/2023 11:07 AM EDT Procedure canceled * Telephone Encounter - Santa Hart RN - 05/07/2023 10:47 AM EDT Patient is keeping 07/20/2023 Upper endoscopy appointment and wishes to cancel 05/14/2023 EGD appointment. Scheduling notified. documented in this encounterMer[facility]24 Hospital Discharge instructions Patient [...] Follow these instructions at home: Medicines Take bqwq-pkp-qqdslub and prescription medicines only as told by [...] Watch your condition for any changes. Take zoui-vak-nfanxod and prescription medicines only as told by [...] provider. Document Revised: 03/22/2020 Document Reviewed: 06/12/2019 [employer] Patient Education 2022 [employer]. Follow Up Care 05/06/2023 15:41:48 With:Follow-up with your surgeon at soon as possible, call the office tomorrow to schedule an appointment. Return to the ER with any new or worsening symptoms. Address:Unknown When: Unknown With:Jaquan Morrow Address:Unknown When:Within 3 Day(s) [facility]03-13-2024 History of Present illness Narrative* [...] race variable for the IDMS-Traceable creatinine methods. https://jasn.asnjournals.org/content/early//ASN.5321707644 Calcium 8.5 - 10.4 mg/dL 8.7 Albumin [...] the body of the stomach FINAL DIAGNOSIS [facility] LAB STOMACH ANTRUM, BIOPSY: Erosive chronic [...] healthy appearing mucosa. This was traversed. The rscvp-vy-sabzeyy limb was characterized by healthy appearing mucosa. [...] healthy appearing mucosa. This was traversed. The kehfi-es-wbhthwf limb was characterized by healthy appearing mucosa. The jejunojejunal anastomosis was characterized by healthy appearing mucosa. The examined jejunum was normal. Impression: - Normal esophagus. - Tan-en-Y gastrojejunostomy with gastrojejunal anastomosis characterized by healthy appearing mucosa. No ulceration or stenosis. - Normal examined jejunum. - No specimens collected. Upper GI SERIES 03/17/23 FINDINGS: Gasoline Tractor Operator images demonstrate postsurgical changes from previous Tan-en-Y [...] destructive bone lesions. CT ABD/PEL 12/06/22 ABDOMEN: Gasoline Tractor Operator (topogram) images: No additional findings. Images of [...] which included preparing to see the patient, cbwi-ye-iolq patient care, completing clinical documentation, obtaining and/or reviewing separately obtained history, performing a medically appropriate examination, counseling and educating the pat ient/family/caregiver, and ordering medications, tests, or procedures. Kasie Avalos MD April 22, 2023 2:06 PM documented in this encounterMer[facility]03-13-[facility] History of Present illness Narrative* Sherry [...] she connect with her bariatric surgeon at [facility]. I will follow-up with her in 2 weeks by telephone. documented in [facility] Work Phone: 1(777) 582-774102-21-2024 [facility]02-[facility] History of Present illness Narrative* Deacon Kat MD - 04/07/2023 1:48 PM EST VIRTUAL VISIT PROGRESS NOTE This is a virtual visit using [employer] Zoom Video Visit. It required patient- provider interaction for the medical decision making as documented below. I have communicated my name and active licensure. The patient's identity and physical location wereverified at the time of this visit. Either the patient or their legal branch sales and service representative has been informed of the risks [...] She had a recent EGD through the [employer] system which I was able to obtain [...] Low Deacon Kat MD documented in this encounterMer[facility]02-16-2024 Hospital Discharge instructions Patient [...] Follow these instructions at home: Medicines Take mcni-cqs-vpkqroc and prescription medicines only as told by [...] provider. Document Revised: 04/17/2021 Document Reviewed: 04/17/2021 [employer] Patient Education 2022 [employer]. 04/02/2023 17:02:34 Abdominal Pain, Adult Abdominal Pain, [...] Follow these instructions at home: Medicines Take qdno-bkq-kbpopoa and prescription medicines only as told by [...] Watch your condition for any changes. Take tpcj-idf-ubaaeez and prescription medicines only as told by [...] provider. Document Revised: 03/22/2020 Document Reviewed: 06/12/2019 [employer] Patient Education 2022 [employer]. Follow Up Care 04/02/2023 10:53:50 With:Jon Rivera Address: [address] [place] [address], [address] [phone] Business (1) When:04/05/2023 16:23:56 Comments:Make sure to follow-up with your primary doctor and your surgeon. Follow-up with Dr. Rivera for the GI. Return to the emergency room if your pain gets worse or any new symptoms. With:Jaquan Morrow Address:Unknown When:Within 3 Day(s) [facility]02-16-2024 Evaluation + Plan noteExtracted from: Title:ED Note Author:Jose Ramon Martinez, Ashutosh Galdamez:04/02/23 1. Chest pain (R07.9: Chest pain, unspecified) 2. Abdominal pain (R10.9: Unspecified abdominal pain) Orders: dicyclomine, 20 mg = 2 cap(s), Oral, QID, # 20 cap(s), Refills(s) 0, Pharmacy: [facility]/pharmacy #[id number], 167, cm, 04/02/23 [...] nausea/vomiting, # 16 tab(s), Refills(s) 0, Pharmacy: [facility]/pharmacy #[id number], 167, cm, 04/02/23 [...] day(s), # 560 mL, Refills(s) 0, Pharmacy: [facility]/pharmacy #[id number], 167, cm, 04/02/23 [...] 09:45:00 AM Scheduled Provider:Nasim JOHNSON, Rajni Ballesteros Location:[facility] Appointment Type:URO Office Visit Future Scheduled Tests Radiology* US Renal 06/10/22 [facility]02-03-2024 Nurse Note* Stacie Blanco RN - 03/20/2023 4:41 PM EST Patient discharged home to care of self and . Patient transported to front entrance via wheelchair. No injuries, bleeding or distress noted. [facility]02-03-2024 Nurse Note* Stacie Blanco RN - 03/20/2023 [...] of NG tube. Order received. Waiting on it telecom technician to verify placement per order. Will [...] per to re insert NG tube and clay preparation supervisor to low suction. Will re attempt with patients consent. * Cathy Madera RN - 03/17/2023 12:06 PM EST Patient transported to Xray for placement of NG. Patient off unit. * Cathy Madera RN - 03/17/2023 11:44 AM EST This nurse notified endoscope technician that patient had NG tube placed and needed Xray for placement verification. This nurse messaged Rosa YUN to notify her that NG tube was placed and needed separate order for NG tube placement per endoscope technician. Order received. Will continue to monitor [...] to ensure patient safety. documented in this encounterSelect [facility] Work Phone: 1(432) 120-233802-03-2024 Nurse Note* Stacie Blanco RN - 03/20/2023 4:01 PM EST Provided/explained discharge instructions and summary. Provided opportunity for questions and discussion. No complaints or concerns communicated. [facility] Work Phone: 1([phone]) 634-744102-03-2024 History of Present illness Narrative* Nathalie Tyler RN - 03/20/2023 3:35 PM EST Patient is medically ready for discharge. Per previous reproductive healthcare assistant, plan for home with home health care. Message to provider that external home care referral is needed. UPDATE 1549: Discharging provider indicates no continued skilled needs for home care. Per bedside nurse May, patient is in agreement that she no longer needs home health care services. Referral to [facility] updated and closed. Patient will discharge no with no reported skilled needs. * Lizz Brunson, SLIM-RADIOCOMMUNICATIONS TECHNICIAN - 03/20/2023 11:40 AM EST Abbey Garcia [...] Tomasa Keyes RN 03/19/2023 1431 Procedure Location [address] [address] Referring Provider Generic Provider Glen No address on file Procedure Provider No [...] 03/17/2023 done at 2:05 p.m. ACCESSION NUMBER(S): [id number] ORDERING CLINICIAN: TIFFANIE MENDEZ TECHNIQUE: AP erect view of the chest FINDINGS: The nasogastric tube has not ch anged in placement with the tip seen within the proximal thoracic esophagus. Heart and mediastinum are normally visualized. Lungs are clear. Distal tip of nasogastric tube in proximal thoracic esophagus just above the aortic arch. Signed by: Nya Ahmadi 03/17/2023 8:19 PM Dictation workstation: [id number] FL upper GI w double contrast w small bowel follow through Result Date: 03/17/2023 Interpreted By: Corie Garza, STUDY: FL UPPER GI W DOUBLE CONTRAST W SMALL BOWEL FOLLOW THROUGH; 03/17/2023 4:40 pm INDICATION: Signs/Symptoms:abdominal pain. COMPARISON: None. ACCESSION NUMBER(S): [id number] ORDERING CLINICIAN: TIFFANIE MENDEZ TECHNIQUE: Multiple fluoroscopic spot images were obtained during a single contrast upper GI with KUB. Total fluoroscopy time: 1 minute 32 seconds Radiation exposure (Reference Air Kerma): 99.36 mGy Images: 2 spot images 7 series and 2 delayed AP viewsof the abdomen FINDINGS: Gasoline Tractor Operator images demonstrate postsurgical changes from previous Tan-en-Y [...] Corie Garza 03/17/2023 5:00 PM Dictation workstation: [id number] XR chest 1 view Result Date: 03/17/2023 Interpreted By: Corie Garza, STUDY: XR CHEST 1 VIEW; 03/17/2023 12:41 pm INDICATION: Signs/Symptoms:Status post NG tube placement. COMPARISON: None available ACCESSION NUMBER(S): [id number] ORDERING CLINICIAN: TIFFANIE MENDEZ FINDINGS: RESULT: Nasogastric [...] Corie Garza 03/17/2023 4:19 PM Dictation workstation: [id number] CT abdomen pelvis w IV contrast Result Date: 03/16/2023 Interpreted By: Corie Garza, STUDY: CT ABDOMEN PELVIS W IV CONTRAST; 03/16/2023 5:27 pm INDICATION: Signs/Symptoms:abdominal pain - with oral and IV contrast. COMPARISON: None.. ACCESSION NUMBER(S): [id number] ORDERING CLINICIAN: TIFFANIE MENDEZ TECHNIQUE: Oral contrast [...] Corie Garza 03/16/2023 5:46 PM Dictation workstation: [id number] XR chest 1 view Result Date: 03/06/2023 Interpreted By: Sara Zarate, STUDY: XR CHEST 1 VIEW; 03/06/2023 7:32 am INDICATION: Signs/Symptoms:post op COMPARISON: None ACCESSION NUMBER(S): [id number] ORDERING CLINICIAN: JASON FOSTER TECHNIQUE: Frontal and [...] Sara Zarate 03/06/2023 1:48 PM Dictation workstation: [id number] XR chest 1 view Result Date: 03/05/2023 Interpreted By: Baldomero Hendrickson, STUDY: XR CHEST 1 VIEW; 03/05/2023 3:11 pm INDICATION: CLINICAL INFORMATION: Signs/Symptoms:NG tube placement confirmation. COMPARISON: 03/05/2019 at 745 hours ACCESSION NUMBER(S): [id number] ORDERING CLINICIAN: DESMOND TIRADO TECHNIQUE: Portable chest [...] Baldomero Hendrickson 03/05/2023 3:31 PM Dictation workstation: [id number] XR chest 1 view Result Date: 03/05/2023 Interpreted By: Nya Ahmadi, STUDY: XR CHEST 1 VIEW 03/05/2023 7:51 am INDICATION: Signs/Symptoms:confirm line placement COMPARISON: None available. ACCESSION NUMBER(S): [id number] ORDERING CLINICIAN: SERENA GEORGE TECHNIQUE: AP erect view of the chest FINDINGS: Right arm PICC line terminates in the SVC. There is no pneumothorax. The heart, mediastinum, and lungs are normally visualized. Right arm PICC line terminating in SVC without pneumothorax. No acute cardiopulmonary disease. Signed by: Nya Ahmadi 03/05/2023 7:54 AM Dictation workstation: [id number] Assessment/Plan Principal Problem: Abdominal pain NV, Epigastric [...] vomiting, unspecified vomiting type Staff Staff Role Don E Brinberg, MD Proceduralist Medications No administrations occurring from [...] Tomasa Keyes RN 03/19/2023 1431 Procedure Location [address] [address] Referring Provider Generic Provider Glen No address on file Procedure Provider No name on file XR chest 1 view Result Date: 03/17/2023 Interpreted By: Nya Ahmadi, STUDY: XR CHEST 1 VIEW 03/17/2023 7:09 pm INDICATION: Signs/Symptoms:S/p NG placement COMPARISON: 03/17/2023 done at 2:05 p.m. ACCESSION NUMBER(S): [id number] ORDERING CLINICIAN: TIFFANIE MENDEZ TECHNIQUE: AP erect view of the chest FINDINGS: The nasogastric tube has not ch anged in placement with the tip seen within the proximal thoracic esophagus. Heart and mediastinum are normally visualized. Lungs are clear. Distal tip of nasogastric tube in proximal thoracic esophagus just above the aortic arch. Signed by: Nya Ahmadi 03/17/2023 8:19 PM Dictation workstation: [id number] FL upper GI w double contrast w small bowel follow through Result Date: 03/17/2023 Interpreted By: Corie Garza, STUDY: FL UPPER GI W DOUBLE CONTRAST W SMALL BOWEL FOLLOW THROUGH; 03/17/2023 4:40 pm INDICATION: Signs/Symptoms:abdominal pain. COMPARISON: None. ACCESSION NUMBER(S): [id number] ORDERING CLINICIAN: TIFFANIE MENDEZ TECHNIQUE: Multiple fluoroscopic spot images were obtained during a single contrast upper GI with KUB. Total fluoroscopy time: 1 minute 32 seconds Radiation exposure (Reference Air Kerma): 99.36 mGy Images: 2 spot images 7 series and 2 delayed AP viewsof the abdomen FINDINGS: Gasoline Tractor Operator images demonstrate postsurgical changes from previous Tan-en-Y [...] Corie Garza 03/17/2023 5:00 PM Dictation workstation: [id number] XR chest 1 view Result Date: 03/17/2023 Interpreted By: Corie Garza, STUDY: XR CHEST 1 VIEW; 03/17/2023 12:41 pm INDICATION: Signs/Symptoms:Status post NG tube placement. COMPARISON: None available ACCESSION NUMBER(S): [id number] ORDERING CLINICIAN: TIFFANIE MENDEZ FINDINGS: RESULT: Nasogastric [...] Corie Garza 03/17/2023 4:19 PM Dictation workstation: [id number] CT abdomen pelvis w IV contrast Result Date: 03/16/2023 Interpreted By: Corie Garza, STUDY: CT ABDOMEN PELVIS W IV CONTRAST; 03/16/2023 5:27 pm INDICATION: Signs/Symptoms:abdominal pain - with oral and IV contrast. COMPARISON: None.. ACCESSION NUMBER(S): [id number] ORDERING CLINICIAN: TIFFANIE MENDEZ TECHNIQUE: Oral contrast [...] Corie Garza 03/16/2023 5:46 PM Dictation workstation: [id number] XR chest 1 view Result Date: 03/06/2023 Interpreted By: Sara Zarate, STUDY: XR CHEST 1 VIEW; 03/06/2023 7:32 am INDICATION: Signs/Symptoms:post op COMPARISON: None ACCESSION NUMBER(S): [id number] ORDERING CLINICIAN: JASON FOSTER TECHNIQUE: Frontal and [...] Sara Zarate 03/06/2023 1:48 PM Dictation workstation: [id number] XR chest 1 view Result Date: 03/05/2023 Interpreted By: Baldomero Hendrickson, STUDY: XR CHEST 1 VIEW; 03/05/2023 3:11 pm INDICATION: CLINICAL INFORMATION: Signs/Symptoms:NG tube placement confirmation. COMPARISON: 03/05/2019 at 745 hours ACCESSION NUMBER(S): [id number] ORDERING CLINICIAN: DESMOND TIRADO TECHNIQUE: Portable chest [...] Baldomero Hendrickson 03/05/2023 3:31 PM Dictation workstation: [id number] XR chest 1 view Result Date: 03/05/2023 Interpreted By: Nya Ahmadi, STUDY: XR CHEST 1 VIEW 03/05/2023 7:51 am INDICATION: Signs/Symptoms:confirm line placement COMPARISON: None available. ACCESSION NUMBER(S): [id number] ORDERING CLINICIAN: SERENA GEORGE TECHNIQUE: AP erect view of the chest FINDINGS: Right arm PICC line terminates in the SVC. There is no pneumothorax. The heart, mediastinum, and lungs are normally visualized. Right arm PICC line terminating in SVC without pneumothorax. No acute cardiopulmonary disease. Signed by: Nya Ahmadi 03/05/2023 7:54 AM Dictation workstation: [id number] Assessment/Plan -Abdominal pain/nausea -Median arcuate ligament syndrome, [...] deferto her bariatric surgeon, Dr. Morel, at [place]. Will sign off. Kurt Matos MD * Anam Davila RN - 03/19/2023 3:11 PM EST Abbey Garcia is a 32 y.o. female on day 3 of admission presenting with Abdominal pain. Met with patient at bedside. Patient states she has been active with [facility] in [place] . Patient would like to continue HHC with [facility]. Referral was sent. EGD scheduled today. Has NG in place. [facility] is able to accept for STEF. NG discontinued. On clear liquids. WILL NEED AND EXTERNAL REFERRAL FOR RESUMPTION OF HHC. Anam Davila RN * Shelley Nash APRN-RADIOCOMMUNICATIONS TECHNICIAN - 03/19/2023 12:32 PM EST Abbey Garcia [...] her usual [facility] surgeons after DC. Acid microchip specialist. MVI, B12. I spent 15 minutes in [...] 03/17/2023 done at 2:05 p.m. ACCESSION NUMBER(S): [id number] ORDERING CLINICIAN: TIFFANIE MENDEZ TECHNIQUE: AP erect view of the chest FINDINGS: The nasogastric tube has not changed in placement with the tip seen within the proximal thoracic esophagus. Heart and mediastinum are normally visualized. Lungs are clear. Impression: Distal tip of nasogastric tube in proximal thoracic esophagus just above the aortic arch. Signed by: Nya Ahmadi 03/17/2023 8:19 PM Dictation workstation: [id number] FL upper GI w double contrast w small bowel follow through Narrative: Interpreted By: Corie Garza, STUDY: FL UPPER GI W DOUBLE CONTRAST W SMALL BOWEL FOLLOW THROUGH; 03/17/2023 4:40 pm INDICATION: Signs/Symptoms:abdominal pain. COMPARISON: None. ACCESSION NUMBER(S): [id number] ORDERING CLINICIAN: TIFFANIE MENDEZ TECHNIQUE: Multiple fluoroscopic spot images were obtained during a single contrast upper GI with KUB. Total fluoroscopy time: 1 minute 32 seconds Radiation exposure (Reference Air Kerma): 99.36 mGy Images: 2 spot images 7 series and 2 delayed AP views of the abdomen FINDINGS: Gasoline Tractor Operator images demonstrate postsurgical changes from previous Tan-en-Y [...] Corie Garza 03/17/2023 5:00 PM Dictation workstation: [id number] XR chest 1 view Narrative: Interpreted By: Corie Garza, STUDY: XR CHEST 1 VIEW; 03/17/2023 12:41 pm INDICATION: Signs/Symptoms:Status post NG tube placement. COMPARISON: None available ACCESSION NUMBER(S): [id number] ORDERING CLINICIAN: TIFFANIE MENDEZ FINDINGS: RESULT: Nasogastric [...] Corie Garza 03/17/2023 4:19 PM Dictation workstation: [id number] Physical Exam Vitals and nursing note reviewed. [...] her usual [facility] surgeons after DC. Acid microchip specialist. MVI, B12. I spent 15 minutes in the professional and overall care of this patient. Shelley Nash, SLIM-RADIOCOMMUNICATIONS TECHNICIAN * Jason Foster APRN-BETH - 03/18/2023 3:11 [...] Marino with [facility]a, prescriptions filled through [facility] in [place]. Uncertain if pt will have dc needs. Her last admit she went home with [facility]. TCC to follow ongoing medical workup. Safe dc plan not secured-TCC to follow Sabina GRANTA, ASSOCIATE PROFESSOR OF ART * Lizz Brunson, AMMONIA SOLUTION PREPARER-RADIOCOMMUNICATIONS TECHNICIAN - 03/18/2023 10:57 AM EST Abbey Garcia [...] 03/17/2023 done at 2:05 p.m. ACCESSION NUMBER(S): [id number] ORDERING CLINICIAN: TIFFANIE MENDEZ TECHNIQUE: AP erect view of the chest FINDINGS: The nasogastric tube has not changed in placement with the tip seen within the proximal thoracic esophagus. Heart and mediastinum are normally visualized. Lungs are clear. Impression: Distal tip of nasogastric tube in proximal thoracic esophagus just above the aortic arch. Signed by: Nya Ahmadi 03/17/2023 8:19 PM Dictation workstation: [id number] FL upper GI w double contrast w small bowel follow through Narrative: Interpreted By: Corie Garza, STUDY: FL UPPER GI W DOUBLE CONTRAST W SMALL BOWEL FOLLOW THROUGH; 03/17/2023 4:40 pm INDICATION: Signs/Symptoms:abdominal pain. COMPARISON: None. ACCESSION NUMBER(S): [id number] ORDERING CLINICIAN: TIFFANIE MENDEZ TECHNIQUE: Multiple fluoroscopic spot images were obtained during a single contrast upper GI with KUB. Total fluoroscopy time: 1 minute 32 seconds Radiation exposure (Reference Air Kerma): 99.36 mGy Images: 2 spot images 7 series and 2 delayed AP views of the abdomen FINDINGS: Gasoline Tractor Operator images demonstrate postsurgical changes from previous Tan-en-Y [...] Corie Garza 03/17/2023 5:00 PM Dictation workstation: [id number] XR chest 1 view Narrative: Interpreted By: Corie Garza, STUDY: XR CHEST 1 VIEW; 03/17/2023 12:41 pm INDICATION: Signs/Symptoms:Status post NG tube placement. COMPARISON: None available ACCESSION NUMBER(S): [id number] ORDERING CLINICIAN: TIFFANIE MENDEZ FINDINGS: RESULT: Nasogastric [...] Corie Garza 03/17/2023 4:19 PM Dictation workstation: [id number] Physical Exam Vitals and nursing note reviewed. [...] 03/17/2023 done at 2:05 p.m. ACCESSION NUMBER(S): [id number] ORDERING CLINICIAN: TIFFANIE MENDEZ TECHNIQUE: AP erect view of the chest FINDINGS: The nasogastric tube has not ch anged in placement with the tip seen within the proximal thoracic esophagus. Heart and mediastinum are normally visualized. Lungs are clear. Distal tip of nasogastric tube in proximal thoracic esophagus just above the aortic arch. Signed by: Nya Ahmadi 03/17/2023 8:19 PM Dictation workstation: [id number] FL upper GI w double contrast w small bowel follow through Result Date: 03/17/2023 Interpreted By: Corie Garza, STUDY: FL UPPER GI W DOUBLE CONTRAST W SMALL BOWEL FOLLOW THROUGH; 03/17/2023 4:40 pm INDICATION: Signs/Symptoms:abdominal pain. COMPARISON: None. ACCESSION NUMBER(S): [id number] ORDERING CLINICIAN: TIFFANIE MENDEZ TECHNIQUE: Multiple fluoroscopic spot images were obtained during a single contrast upper GI with KUB. Total fluoroscopy time: 1 minute 32 seconds Radiation exposure (Reference Air Kerma): 99.36 mGy Images: 2 spot images 7 series and 2 delayed AP viewsof the abdomen FINDINGS: Gasoline Tractor Operator images demonstrate postsurgical changes from previous Tan-en-Y [...] Corie Garza 03/17/2023 5:00 PM Dictation workstation: [id number] XR chest 1 view Result Date: 03/17/2023 Interpreted By: Corie Garza, STUDY: XR CHEST 1 VIEW; 03/17/2023 12:41 pm INDICATION: Signs/Symptoms:Status post NG tube placement. COMPARISON: None available ACCESSION NUMBER(S): [id number] ORDERING CLINICIAN: TIFFANIE MENDEZ FINDINGS: RESULT: Nasogastric [...] Corie Garza 03/17/2023 4:19 PM Dictation workstation: [id number] CT abdomen pelvis w IV contrast Result Date: 03/16/2023 Interpreted By: Corie Garza, STUDY: CT ABDOMEN PELVIS W IV CONTRAST; 03/16/2023 5:27 pm INDICATION: Signs/Symptoms:abdominal pain - with oral and IV contrast. COMPARISON: None.. ACCESSION NUMBER(S): [id number] ORDERING CLINICIAN: TIFFANIE MENDEZ TECHNIQUE: Oral contrast [...] Corie Garza 03/16/2023 5:46 PM Dictation workstation: [id number] Assessment/Plan Abdominal pain, nausea, chronic intolerance to [...] 03/17/2023 done at 2:05 p.m. ACCESSION NUMBER(S): [id number] ORDERING CLINICIAN: TIFFANIE MENDEZ TECHNIQUE: AP erect view of the chest FINDINGS: The nasogastric tube has not ch anged in placement with the tip seen within the proximal thoracic esophagus. Heart and mediastinum are normally visualized. Lungs are clear. Distal tip of nasogastric tube in proximal thoracic esophagus just above the aortic arch. Signed by: Nya Ahmadi 03/17/2023 8:19 PM Dictation workstation: [id number] FL upper GI w double contrast w small bowel follow through Result Date: 03/17/2023 Interpreted By: Corie Garza, STUDY: FL UPPER GI W DOUBLE CONTRAST W SMALL BOWEL FOLLOW THROUGH; 03/17/2023 4:40 pm INDICATION: Signs/Symptoms:abdominal pain. COMPARISON: None. ACCESSION NUMBER(S): [id number] ORDERING CLINICIAN: TIFFANIE MENDEZ TECHNIQUE: Multiple fluoroscopic spot images were obtained during a single contrast upper GI with KUB. Total fluoroscopy time: 1 minute 32 seconds Radiation exposure (Reference Air Kerma): 99.36 mGy Images: 2 spot images 7 series and 2 delayed AP viewsof the abdomen FINDINGS: Gasoline Tractor Operator images demonstrate postsurgical changes from previous Tan-en-Y [...] Corie Garza 03/17/2023 5:00 PM Dictation workstation: [id number] XR chest 1 view Result Date: 03/17/2023 Interpreted By: Corie Garza, STUDY: XR CHEST 1 VIEW; 03/17/2023 12:41 pm INDICATION: Signs/Symptoms:Status post NG tube placement. COMPARISON: None available ACCESSION NUMBER(S): [id number] ORDERING CLINICIAN: TIFFANIE MENDEZ FINDINGS: RESULT: Nasogastric [...] Corie Garza 03/17/2023 4:19 PM Dictation workstation: [id number] CT abdomen pelvis w IV contrast Result Date: 03/16/2023 Interpreted By: Corie Garza, STUDY: CT ABDOMEN PELVIS W IV CONTRAST; 03/16/2023 5:27 pm INDICATION: Signs/Symptoms:abdominal pain - with oral and IV contrast. COMPARISON: None.. ACCESSION NUMBER(S): [id number] ORDERING CLINICIAN: TIFFANIE MENDEZ TECHNIQUE: Oral contrast [...] Corie Garza 03/16/2023 5:46 PM Dictation workstation: [id number] XR chest 1 view Result Date: 03/06/2023 Interpreted By: Sara Zarate, STUDY: XR CHEST 1 VIEW; 03/06/2023 7:32 am INDICATION: Signs/Symptoms:post op COMPARISON: None ACCESSION NUMBER(S): [id number] ORDERING CLINICIAN: JASON FOSTER TECHNIQUE: Frontal and [...] Sara Zarate 03/06/2023 1:48 PM Dictation workstation: [id number] XR chest 1 view Result Date: 03/05/2023 Interpreted By: Baldomero Hendrickson, STUDY: XR CHEST 1 VIEW; 03/05/2023 3:11 pm INDICATION: CLINICAL INFORMATION: Signs/Symptoms:NG tube placement confirmation. COMPARISON: 03/05/2019 at 745 hours ACCESSION NUMBER(S): [id number] ORDERING CLINICIAN: DESMOND TIRADO TECHNIQUE: Portable chest [...] Baldomero Hendrickson 03/05/2023 3:31 PM Dictation workstation: [id number] XR chest 1 view Result Date: 03/05/2023 Interpreted By: Nya Ahmadi, STUDY: XR CHEST 1 VIEW 03/05/2023 7:51 am INDICATION: Signs/Symptoms:confirm line placement COMPARISON: None available. ACCESSION NUMBER(S): [id number] ORDERING CLINICIAN: SERENA GEORGE TECHNIQUE: AP erect view of the chest FINDINGS: Right arm PICC line terminates in the SVC. There is no pneumothorax. The heart, mediastinum, and lungs are normally visualized. Right arm PICC line terminating in SVC without pneumothorax. No acute cardiopulmonary disease. Signed by: Nya Ahmadi 03/05/2023 7:54 AM Dictation workstation: [id number] Assessment/Plan Principal Problem: Abdominal pain NV, Epigastric [...] for tomorrow -Increase PPI to twice daily JAMA Nunez Associated attestation - Yani Wong MD - [...] and IV contrast. COMPARISON: None.. ACCESSION NUMBER(S): [id number] ORDERING CLINICIAN: TIFFANIE MENDEZ TECHNIQUE: Oral contrast [...] gastric bypass. MACRO: none Signed by: Corie Greg 03/16/2023 5:46 PM Dictation workstation: [id number] Physical Exam Vitals and nursing note reviewed. [...] in her local emergency room out in [place]. She was discharged after her nausea was relieved last night but this nausea recurred and she was transferred here. I suspect given adequate pain control and control of her nausea that once the inflammation of her surgery resolves she will feel much better. Pancreatitis and bowel ischemia have been ruled out through lab testing and noncontrast CT done yesterday in [place]. I am going to get a CT scan with IV andoral contrast today and start IV fluids and antiemetics as well as analgesics. Unless she starts taking p.o.'s well I will likely place a feeding tube and start enteral feedings during this hospitalization. She will be getting a gastroenterology consultation as well as a foregut surgery consultation. documented in this [facility] Work Phone: 1(940) 114-664502-03-2024 Hospital Discharge instructions* Discharge Instructions* Jason Foster APRN-RADIOCOMMUNICATIONS TECHNICIAN - 03/20/2023 3:21 PM EST What to [...] up in 1-2 weeks documented in this [facility] Work Phone: 1(481) 351-127002-02-2024 Plan of care note* Care Plan - [...] pain meds throughout the shift Outcome: Progressing [facility]02-02-2024 Miscellaneous Notes* Care Plan - Nathalie Campos [...] of abdominal pain with considerable notes from [facility], and has a history gastric bypass, cholecystectomy, sphincterectomy, and recent median arcuate ligament release on March 05 with vascular surgery. Patient presented to the emergency department in her hometown in [facility] yesterdaywith abdominal pain and sent home, again [...] issue which will be best done at [facility] either as inpatient or outpatient, where she has ongoing work, or is a postoperative situation that has been discussed multiple times with the primary operating service (and I have discussed with Tiffanie Mendez CNP with their service and there appears to be a good plan for imaging studies), and can ba admitted by their service). documented in this [facility] Work Phone: 1(835) 962-169302-02-2024 Plan of care note* Care Plan - [...] include. Recommendations to address these barriers include. [facility] [place]02-01-2024 Plan of care note* Care Plan - [...] pain meds throughout the shift Outcome: Progressing [facility] [place] Work Phone: [phone]) 359-718102-01-2024 Nurse Note* Andie Lugo RN - 03/18/2023 4:47 PM EST Pt resting quietly in bed, no distres noted [facility]02-01-2024 Nurse Note* Andie Lugo RN - 03/18/2023 3:17 PM EST Pt given IS and instructed how to use, pt verbalized understanding [facility] Work Phone: 1([phone]) 469-557102-01-2024 Nurse Note* Andie Lugo RN - 03/18/2023 2:50 PM EST Ronnie foster cnp into see pt [facility] Work Phone: [phone]) 283-691902-01-2024 Consult note* Nabila Moore RDN, SALVADOR - [...] 650 mg, 650 mg, rectal, q4h PRN, Tiffanie Mendez, AMMONIA SOLUTION PREPARER-RADIOCOMMUNICATIONS TECHNICIAN albuterol 2.5 mg /3 mL (0.083 %) [...] mg, 2 mg, intravenous, q4h PRN, Lizz Brunson, JAMA, 2 mg at 03/18/23 1407 ondansetron (Zofran) injection 4 mg, 4 mg, intravenous, q6h PRN, JAMA Judd, 4 mg at 03/17/23 195 oxyCODONE-acetaminophen (Percocet) 5-325 mg per tablet 1 [...] Energy Needs Total Energy Estimated Needs (kCal): (1637-3141 kcals) Total Estimated Energy Need per Day (kCal/kg): (25-30 kcals/kg) Method for Estimating Needs: adjusted IBW Estimated Protein Needs Total Protein Estimated Needs (g): (68-81g Protein) Total Protein Estimated Needs (g/kg): (1-1.2 g/kg) Method for Estimating Needs: adjusted IBW Estimated Fluid Needs Total Fluid Estimated Needs (mL): (8561-6810 mL fluid) Method for Estimating Needs: 1 [...] Prescription: Individualized Nutrition Prescription Provided for : 9866-2873 kcals, 68-81g Protein, 6583-4358 mL fluid, provided via PO/NG, once diet advanced. Nutrition Interventions: Food and/or Nutrient Delivery Interventions Interventions: Enteral intake Enteral Intake: Modify composition of enteral nutrition, Modify rate of enteral nutrition Goal: When able to initiate Tube feeding, recommend Osmolite 1.5 @ goal rate of 45 mL/hr to [id number] kcals, 68g Protein, and 823 mL free [...] Needed?: 3-5 days Follow up Comment: 03/22/23 [facility]02-01-2024 Consult note* Nabila Moore RDN, LD - [...] Energy Needs Total Energy Estimated Needs (kCal): (8867-5032 kcals) Total Estimated Energy Need per Day (kCal/kg): (25-30 kcals/kg) Method for Estimating Needs: adjusted IBW Estimated Protein Needs Total Protein Estimated Needs (g): (68-81g Protein) Total Protein Estimated Needs (g/kg): (1-1.2 g/kg) Method for Estimating Needs: adjusted IBW Estimated Fluid Needs Total Fluid Estimated Needs (mL): (4697-1258 mL fluid) Method for Estimating Needs: 1 [...] Prescription: Individualized Nutrition Prescription Provided for : 9573-2833 kcals, 68-81g Protein, 3141-4789 mL fluid, provided via PO/NG, once diet advanced. Nutrition Interventions: Food and/or Nutrient Delivery Interventions Interventions: Enteral intake Enteral Intake: Modify composition of enteral nutrition, Modify rate of enteral nutrition Goal: When able to initiate Tube feeding, recommend Osmolite 1.5 @ goal rate of 45 mL/hr to [id number] kcals, 68g Protein, and 823 mL free [...] with liver biopsy in April 2020 at [facility] in evaluation of her chronic abdominal pain and intermittent food intolerance. She had a vertical sleeve gastrectomy at [facility] on September 03, 2020 for morbid obesity. She had a diagnostic laparoscopy on March 20, 2021 at [facility] for chronic pain thought to be secondary to an abdominal wall hernia. No hernia was seen at laparoscopy. She complained of gastroesophageal reflux disease and had her vertical sleeve gastrectomy converted to Tan-en-Y gastric bypass at [facility] on January 29, 2022. On March 06, 2022 she had an upper endoscopy at [facility] for epigastric abdominal pain. Her gastrojejunostomy was congested, edematous, with erosions and friable mucosa. The anastomosis was dilated and she was discharged on twice daily PPI. She had an upper endoscopy at [facility] onJune 23, 2022 for epigastric pain. At that time her gastrojejunostomy appeared normal. She continued to complain of abdominal pain and had an upper endoscopy at the [facility] on October 27, 2022. She was found to have food in her stomach and jejunum. There was no evidence of gastrojejunal ulcer. On November 11, 2022 she had laparoscopic closure of internal hernia at the jejunojejunostomy and ERCP through her gastric remnant for her abdominal pain. She was hospitalized at the [facility] on December 06, 2022 for [...] by laparotomy on March 05, 2023 at [facility]. She was discharged to home on [...] medical history of MARSHAL (acute kidney injury) ([facility]), Autoimmune disorder ([facility]), Bipolar disorder ([facility]/HCC), BPH (benign prostatic hyperplasia), Cerebral aneurysm, Cervical cancer ([facility]/HCC), Cervical disc disease, Chronic kidney disease, CKD (chronic kidney disease), Cognitivedecline, Crohn's disease ([facility]/HCC), Dementia ([facility]/HCC), Dysphagia, Endometrial cancer ([facility]/HCC), Esophageal cancer ([facility]/HCC), Esophageal disease, ESRD (end stage renal disease) ([facility]), Fibromyalgia, primary, Fractures, Gastric cancer ([facility]/HCC), Gender dysphoria, GI (gastrointestinal bleed), Hemodialysis status ([facility]), Hernia, internal, History of peritoneal dialysis, HIV disease ([facility]), Immunocompromised (CMS/HCC), Liver disease, Lumbar disc disease, [...] INDICATION: Signs/Symptoms:abdominal pain. COMPARISON: None. ACCESSION NUMBER(S): [id number] ORDERING CLINICIAN: TIFFANIE MENDEZ TECHNIQUE: Multiple fluoroscopic spot images were obtained during a single contrast upper GI with KUB. Total fluoroscopy time: 1 minute 32 seconds Radiation exposure (Reference Air Kerma): 99.36 mGy Images: 2 spot images 7 series and 2 delayed AP views of the abdomen FINDINGS: Gasoline Tractor Operator images demonstrate postsurgical changes from previous Tan-en-Y [...] Corie Garza 03/17/2023 5:00 PM Dictation workstation: [id number] Latest Reference Range & Units 03/17/23 07:04 [...] recommendations. Kurt Matos MD * Cheyenne Jansen, SLIM-RADIOCOMMUNICATIONS TECHNICIAN - 03/17/2023 10:29 AM EST Consults Reason For Consult NV History Of Present Illness Abbey Garcia is a 32 y.o. female presenting with abdominal pain, nausea, vomiting. Patient has past medical history of gastric bypass that was revised with gastric sleeve. She also has a history of median arcuate ligament release with vascular surgery 03/05/2023, [facility]. This was completed per Dr Magaña. Following [...] medical history of MARSHAL (acute kidney injury) ([facility]), Autoimmune disorder ([facility]/HCC), Bipolar disorder ([facility]/HCC), BPH (benign prostatic hyperplasia), Cerebral aneurysm, Cervical cancer ([facility]/HCC), Cervical disc disease, Chronic kidney disease, CKD (chronic kidney disease), Cognitivedecline, Crohn's disease ([facility]/HCC), Dementia ([facility]), Dysphagia, Endometrial cancer ([facility]/HCC), Esophageal cancer ([facility]/HCC), Esophageal disease, ESRD (end stage renal disease) ([facility]), Fibromyalgia, primary, Fractures, Gastric cancer ([facility]), Gender dysphoria, GI (gastrointestinal bleed), Hemodialysis status ([facility]), Hernia, internal, History of peritoneal dialysis, HIV disease ([facility]), Immunocompromised ([facility]), Liver disease, Lumbar disc disease, Mastocytosis, MS (multiple sclerosis) ([facility]), Muscular dystrophy ([facility]), Myasthenia gravis ([facility]), Neuromuscular disorder ([facility]), Ovarian cancer ([facility]), Pancreatitis, Peptic ulcer disease, Prematurity, PTSD (post-traumatic stress disorder), Schizophrenia ([facility]), Seizure disorder ([facility]), Spinal stenosis, Substanceaddiction ([facility]), Syncope, TIA (transient ischemic attack), Ulcerative colitis ([facility]), Urinary tract infection, Uterine cancer ([facility]), or Vertigo. Surgical History She [...] Grandfather Elan Artino Arthritis Paternal Grandfather Elan Phipps Hypertension Paternal Grandfather Elan Phipps Anesthesia related [...] and IV contrast. COMPARISON: None.. ACCESSION NUMBER(S): [id number] ORDERING CLINICIAN: TIFFANIE MENDEZ TECHNIQUE: Oral contrast [...] Corie Garza 03/16/2023 5:46 PM Dictation workstation: [id number] XR chest 1 view Result Date: 03/06/2023 Interpreted By: Sara Zarate, STUDY: XR CHEST 1 VIEW; 03/06/2023 7:32 am INDICATION: Signs/Symptoms:post op COMPARISON: None ACCESSION NUMBER(S): [id number] ORDERING CLINICIAN: JASON FOSTER TECHNIQUE: Frontal and [...] Sara Zarate 03/06/2023 1:48 PM Dictation workstation: [id number] XR chest 1 view Result Date: 03/05/2023 Interpreted By: Baldomero Hendrickson, STUDY: XR CHEST 1 VIEW; 03/05/2023 3:11 pm INDICATION: CLINICAL INFORMATION: Signs/Symptoms:NG tube placement confirmation. COMPARISON: 03/05/2019 at 745 hours ACCESSION NUMBER(S): [id number] ORDERING CLINICIAN: DESMOND TIRADO TECHNIQUE: Portable chest [...] Baldomero Hendrickson 03/05/2023 3:31 PM Dictation workstation: [id number] XR chest 1 view Result Date: 03/05/2023 Interpreted By: Nya Ahmadi, STUDY: XR CHEST 1 VIEW 03/05/2023 7:51 am INDICATION: Signs/Symptoms:confirm line placement COMPARISON: None available. ACCESSION NUMBER(S): [id number] ORDERING CLINICIAN: SERENA GEORGE TECHNIQUE: AP erect view of the chest FINDINGS: Right arm PICC line terminates in the SVC. There is no pneumothorax. The heart, mediastinum, and lungs are normally visualized. Right arm PICC line terminating in SVC without pneumothorax. No acute cardiopulmonary disease. Signed by: Nya Ahmadi 03/05/2023 7:54 AM Dictation workstation: [id number] Assessment/Plan NV, Epigastric Pain (LFTs are normal. CT a/p normal) -Complicated recent surgical hx with tan en y and gastric sleeve followed by [facility] and vascular intervention earlier this month. She [...] of this patient. Associated attestation - Yani Wogn MD - 03/17/2023 11:20 PM EST Seen [...] Medical management History Of Present Illness Abbey M. Jose is a 32 y.o. female presenting with abdominal pain. 32-year-old female presents to [facility] for chief complaint of abdominal pain, [...] emergency room close to her [place] near [place], [place] for further evaluation and was promptly transferred to [facility] for further evaluation and treatment. The [...] medical history of MARSHAL (acute kidney injury) ([facility]), Autoimmune disorder ([facility]/HCC), Bipolar disorder ([facility]/HCC), BPH (benign prostatic hyperplasia), Cerebral aneurysm, Cervical cancer ([facility]/HCC), Cervical disc disease, Chronic kidney disease, CKD (chronic kidney disease), Cognitivedecline, Crohn's disease ([facility]/HCC), Dementia ([facility]/HCC), Dysphagia, Endometrial cancer ([facility]/HCC), Esophageal cancer ([facility]/HCC), Esophageal disease, ESRD (end stage renal disease) ([facility]), Fibromyalgia, primary, Fractures, Gastric cancer ([facility]/HCC), Gender dysphoria, GI (gastrointestinal bleed), Hemodialysis status ([facility]), Hernia, internal, History of peritoneal dialysis, HIV disease ([facility]/HCC), Immunocompromised ([facility]/HCC), Liver disease, Lumbar disc disease, Mastocytosis, MS (multiple sclerosis) ([facility]), Muscular dystrophy ([facility]/HCC), Myasthenia gravis ([facility]/HCC), Neuromuscular disorder ([facility]), Ovarian cancer ([facility]/HCC), Pancreatitis, Peptic ulcer disease, Prematurity, PTSD (post-traumatic [...] to follow. JAMA Smith [facility]: 1(516) 233-610502-01-2024 Plan of care note* Care Plan - Andie Lugo RN - 03/18/2023 11:05 AM EST The patient's goals for the shift include Free from pain The clinical goals for the shift include decrease nausea [facility] Work Phone: 1(933) 796-269602-01-2024 Nurse Note* Andie Lugo RN - 03/18/2023 7:27 AM EST Assumed care of pt, pt resting quietly in bed, ng to liws , will monitor [facility] [place] Work Phone: 1(115) 550-635701-31-2024 Plan of care note* Care Plan - [...] pain meds throughout the shift Outcome: Progressing [facility] [place] Work Phone: 1(322) 280-652401-31-2024 Consult note* Kurt Matos MD - 03/17/2023 [...] with liver biopsy in April 2020 at [facility] in evaluation of her chronic abdominal pain and intermittent food intolerance. She had a vertical sleeve gastrectomy at [facility] on September 03, 2020 for morbid obesity. She had a diagnostic laparoscopy on March 20, 2021 at [facility] for chronic pain thought to be secondary to an abdominal wall hernia. No hernia was seen at laparoscopy. She complained of gastroesophageal reflux disease and had her vertical sleeve gastrectomy converted to Tan-en-Y gastric bypass at [facility] on January 29, 2022. On March 06, 2022 she had an upper endoscopy at [facility] for epigastric abdominal pain. Her gastrojejunostomy was congested, edematous, with erosions and friable mucosa. The anastomosis was dilated and she was discharged on twice daily PPI. She had an upper endoscopy at [facility] onJune 23, 2022 for epigastric pain. At that time her gastrojejunostomy appeared normal. She continued to complain of abdominal pain and had an upper endoscopy at the [facility] on October 27, 2022. She was found to have food in her stomach and jejunum. There was no evidence of gastrojejunal ulcer. On November 11, 2022 she had laparoscopic closure of internal hernia at the jejunojejunostomy and ERCP through her gastric remnant for her abdominal pain. She was hospitalized at the [facility] on December 06, 2022 for [...] by laparotomy on March 05, 2023 at [facility]. She was discharged to home on [...] Irritable bowel syndrome, Median arcuate ligament syndrome ([facility]CC), PCOS (polycystic ovarian syndrome), PONV (postoperative nausea and vomiting), PUD (peptic ulcer disease), and Shortness of breath. She has no past medical history of MARSHAL (acute kidney injury) ([facility] Autoimmune disorder ([facility] Bipolar disorder ([facility]), BPH (benign prostatic hyperplasia), Cerebral aneurysm, Cervical cancer ([facility]), Cervical disc disease, Chronic kidney disease, CKD (chronic kidney disease), Cognitivedecline, Crohn's disease ([facility]), Dementia ([facility]), Dysphagia, Endometrial cancer ([facility]), Esophageal cancer ([facility]), Esophageal disease, ESRD (end stage renal disease) ([facility]), Fibromyalgia, primary, Fractures, Gastric cancer ([facility]), Gender dysphoria, GI (gastrointestinal bleed), Hemodialysis status ([facility]), Hernia, internal, History of peritoneal dialysis, HIV disease ([facility]), Immunocompromised ([facility]), Liver disease, Lumbar disc disease, Mastocytosis, MS (multiple sclerosis) ([facility]), Muscular dystrophy ([facility]), Myasthenia gravis ([facility]), Neuromuscular disorder ([facility]), Ovarian cancer ([facility]), Pancreatitis, Peptic ulcer disease, Prematurity, PTSD (post-traumatic stress disorder), Schizophrenia ([facility]), Seizure disorder ([facility]), Spinal stenosis, Substanceaddiction ([facility]), Syncope, TIA (transient ischemic attack), Ulcerative colitis ([facility]), Urinary tract infection, Uterine cancer ([facility]), or Vertigo. Surgical History She [...] INDICATION: Signs/Symptoms:abdominal pain. COMPARISON: None. ACCESSION NUMBER(S): [id number] ORDERING CLINICIAN: TIFFANIE MENDEZ TECHNIQUE: Multiple fluoroscopic spot images were obtained during a single contrast upper GI with KUB. Total fluoroscopy time: 1 minute 32 seconds Radiation exposure (Reference Air Kerma): 99.36 mGy Images: 2 spot images 7 series and 2 delayed AP views of the abdomen FINDINGS: Gasoline Tractor Operator images demonstrate postsurgical changes from previous Tan-en-Y [...] Corie Garza 03/17/2023 5:00 PM Dictation workstation: [id number] Latest Reference Range & Units 03/17/23 07:04 [...] my evaluation and recommendations. Kurt Matos MD [facility] [place] Work Phone: [phone] Nurse Note* Cathy Madera RN - 03/17/2023 6:05 PM EST NG tube re inserted per order. Patient tolerated well. No complications. This nurse requested orderfor xray for placement of NG tube. Order received. Waiting on it telecom technician to verify placement per order. Will continue to monitor patient to ensure patient safety. [facility] Work Phone: [phone] Plan of care note* Care Plan - [...] pain control, maintain and ensure patient safety. [facility] Work Phone: [phone] Nurse Note* Cathy Madera RN - 03/17/2023 [...] per to re insert NG tube and clay preparation supervisor to low suction. Will re attempt with patients consent. [facility] Work Phone: [phone] Nurse Note* Cathy Madera RN - 03/17/2023 12:06 PM EST Patient transported to Xray for placement of NG. Patient off unit. [facility] Work Phone: [phone] Nurse Note* Cathy Madera RN - 03/17/2023 11:44 AM EST This nurse notified endoscope technician that patient had NG tube placed and needed Xray for placement verification. This nurse messaged Rosa YUN to notify her that NG tube was placed and needed separate order for NG tube placement per endoscope technician. Order received. Will continue to monitor patient to ensure patient safety. [facility] Work Phone: [phone] History and physical note* JAMA Judd - 03/17/2023 11:03 AM EST History Of Present Illness This is a 32-year-old female with past medical history of chronic abdominal pain, PCOS, PUD, depression, GERD, IBS, obesity (status post laparoscopic sleeve gastrectomy in August [address] Ku efsAeqj-it-C gastric bypass 01/29/[address] Kat) and [...] her local hospital and was transferred to [facility] per Dr. Magaña's request. Patient has [...] and IV contrast. COMPARISON: None.. ACCESSION NUMBER(S): [id number] ORDERING CLINICIAN: TIFFANIE MENDEZ TECHNIQUE: Oral contrast [...] Corie Garza 03/16/2023 5:46 PM Dictation workstation: [id number] XR chest 1 view Result Date: 03/06/2023 Interpreted By: Sara Zarate, STUDY: XR CHEST 1 VIEW; 03/06/2023 7:32 am INDICATION: Signs/Symptoms:post op COMPARISON: None ACCESSION NUMBER(S): [id number] ORDERING CLINICIAN: JASON FOSTER TECHNIQUE: Frontal and [...] Sara Zarate 03/06/2023 1:48 PM Dictation workstation: [id number] XR chest 1 view Result Date: 03/05/2023 Interpreted By: Baldomero Hendrickson, STUDY: XR CHEST 1 VIEW; 03/05/2023 3:11 pm INDICATION: CLINICAL INFORMATION: Signs/Symptoms:NG tube placement confirmation. COMPARISON: 03/05/2019 at 745 hours ACCESSION NUMBER(S): [id number] ORDERING CLINICIAN: DESMOND TIRADO TECHNIQUE: Portable chest [...] Baldomero Hendrickson 03/05/2023 3:31 PM Dictation workstation: [id number] XR chest 1 view Result Date: 03/05/2023 Interpreted By: Nya Ahmadi, STUDY: XR CHEST 1 VIEW 03/05/2023 7:51 am INDICATION: Signs/Symptoms:confirm line placement COMPARISON: None available. ACCESSION NUMBER(S): [id number] ORDERING CLINICIAN: SERENA GEORGE TECHNIQUE: AP erect view of the chest FINDINGS: Right arm PICC line terminates in the SVC. There is no pneumothorax. The heart, mediastinum, and lungs are normally visualized. Right arm PICC line terminating in SVC without pneumothorax. No acute cardiopulmonary disease. Signed by: Nya Ahmadi 03/05/2023 7:54 AM Dictation workstation: [id number] Assessment and Plan -Abdominal pain/nausea -Median arcuate [...] Continue home iron supplementation GERD: Continue Pepcid [facility] Work Phone: [phone] History and physical note* JAMA Judd - 03/17/2023 11:03 AM EST History Of Present Illness This is a 32-year-old female with past medical history of chronic abdominal pain, PCOS, PUD, depression, GERD, IBS, obesity (status post laparoscopic sleeve gastrectomy in August [address] Ku uzvYfyg-up-K gastric bypass 01/29/[address] Kat) and [...] her local hospital and was transferred to [facility] per Dr. Magaña's request. Patient has [...] and IV contrast. COMPARISON: None.. ACCESSION NUMBER(S): [id number] ORDERING CLINICIAN: TIFFANIE MENDEZ TECHNIQUE: Oral contrast [...] Corie Garza 03/16/2023 5:46 PM Dictation workstation: [id number] XR chest 1 view Result Date: 03/06/2023 Interpreted By: Sara Zarate, STUDY: XR CHEST 1 VIEW; 03/06/2023 7:32 am INDICATION: Signs/Symptoms:post op COMPARISON: None ACCESSION NUMBER(S): [id number] ORDERING CLINICIAN: JASON FOSTER TECHNIQUE: Frontal and [...] Sara Zarate 03/06/2023 1:48 PM Dictation workstation: [id number] XR chest 1 view Result Date: 03/05/2023 Interpreted By: Baldomero Hendrickson, STUDY: XR CHEST 1 VIEW; 03/05/2023 3:11 pm INDICATION: CLINICAL INFORMATION: Signs/Symptoms:NG tube placement confirmation. COMPARISON: 03/05/2019 at 745 hours ACCESSION NUMBER(S): [id number] ORDERING CLINICIAN: DESMOND TIRADO TECHNIQUE: Portable chest [...] Baldomero Hendrickson 03/05/2023 3:31 PM Dictation workstation: [id number] XR chest 1 view Result Date: 03/05/2023 Interpreted By: Nya Ahmadi, STUDY: XR CHEST 1 VIEW 03/05/2023 7:51 am INDICATION: Signs/Symptoms:confirm line placement COMPARISON: None available. ACCESSION NUMBER(S): [id number] ORDERING CLINICIAN: SERENA GEORGE TECHNIQUE: AP erect view of the chest FINDINGS: Right arm PICC line terminates in the SVC. There is no pneumothorax. The heart, mediastinum, and lungs are normally visualized. Right arm PICC line terminating in SVC without pneumothorax. No acute cardiopulmonary disease. Signed by: Nya Ahmadi 03/05/2023 7:54 AM Dictation workstation: [id number] Assessment and Plan -Abdominal pain/nausea -Median arcuate [...] supplementation GERD: Continue Pepcid documented in this [facility] Work Phone: [phone] Nurse Note* Cathy Madera RN - 03/17/2023 10:58 AM EST Patient is ordered NPO this nurse received verbal orders with readback to administer oral medication per Rosa YUN at bedside. Will continue to monitor patient to ensure patient safety. [facility] [place] Work Phone: [phone] Nurse Note* Cathy Madera RN - 03/17/2023 [...] to monitor patient to ensure patient safety. [facility] [place] Work Phone: [phone] Consult note* JAMA Petersen - 03/17/2023 10:29 [...] medical history of MARSHAL (acute kidney injury) ([facility]), Autoimmune disorder ([facility]/HCC), Bipolar disorder ([facility]/HCC), BPH (benign prostatic hyperplasia), Cerebral aneurysm, Cervical cancer ([facility]), Cervical disc disease, Chronic kidney disease, CKD (chronic kidney disease), Cognitivedecline, Crohn's disease ([facility]/HCC), Dementia ([facility]/HCC), Dysphagia, Endometrial cancer ([facility]/HCC), Esophageal cancer ([facility]/HCC), Esophageal disease, ESRD (end stage renal disease) ([facility]), Fibromyalgia, primary, Fractures, Gastric cancer ([facility]), Gender dysphoria, GI (gastrointestinal bleed), Hemodialysis status ([facility]), Hernia, internal, History of peritoneal dialysis, HIV disease ([facility]), Immunocompromised ([facility]), Liver disease, Lumbar disc disease, Mastocytosis, MS (multiple sclerosis) ([facility]), Muscular dystrophy ([facility]), Myasthenia gravis ([facility]), Neuromuscular disorder ([facility]), Ovarian cancer ([facility]), Pancreatitis, Peptic ulcer disease, Prematurity, PTSD (post-traumatic stress disorder), Schizophrenia ([facility]), Seizure disorder ([facility]), Spinal stenosis, Substanceaddiction ([facility]), Syncope, TIA (transient ischemic attack), Ulcerative colitis ([facility]), Urinary tract infection, Uterine cancer ([facility]), or Vertigo. Surgical History She [...] Paternal Grandfather Elan Artino Arthritis Paternal Grandfather Elandanny Jeterino Hypertension Paternal Grandfather Elan Artino Anesthesia related [...] and IV contrast. COMPARISON: None.. ACCESSION NUMBER(S): [id number] ORDERING CLINICIAN: TIFFANIE MENDEZ TECHNIQUE: Oral contrast [...] Corie Garza 03/16/2023 5:46 PM Dictation workstation: [id number] XR chest 1 view Result Date: 03/06/2023 Interpreted By: Sara Zarate, STUDY: XR CHEST 1 VIEW; 03/06/2023 7:32 am INDICATION: Signs/Symptoms:post op COMPARISON: None ACCESSION NUMBER(S): [id number] ORDERING CLINICIAN: JASON FOSTER TECHNIQUE: Frontal and [...] Sara Zarate 03/06/2023 1:48 PM Dictation workstation: [id number] XR chest 1 view Result Date: 03/05/2023 Interpreted By: Baldomero Hendrickson, STUDY: XR CHEST 1 VIEW; 03/05/2023 3:11 pm INDICATION: CLINICAL INFORMATION: Signs/Symptoms:NG tube placement confirmation. COMPARISON: 03/05/2019 at 745 hours ACCESSION NUMBER(S): [id number] ORDERING CLINICIAN: DESMOND TIRADO TECHNIQUE: Portable chest [...] Baldomero Hendrickson 03/05/2023 3:31 PM Dictation workstation: [id number] XR chest 1 view Result Date: 03/05/2023 Interpreted By: Nya Ahmadi, STUDY: XR CHEST 1 VIEW 03/05/2023 7:51 am INDICATION: Signs/Symptoms:confirm line placement COMPARISON: None available. ACCESSION NUMBER(S): [id number] ORDERING CLINICIAN: SERENA GEORGE TECHNIQUE: AP erect view of the chest FINDINGS: Right arm PICC line terminates in the SVC. There is no pneumothorax. The heart, mediastinum, and lungs are normally visualized. Right arm PICC line terminating in SVC without pneumothorax. No acute cardiopulmonary disease. Signed by: Nya Ahmadi 03/05/2023 7:54 AM Dictation workstation: [id number] Assessment/Plan NV, Epigastric Pain (LFTs are normal. [...] in the presence of Dr. Jah Nguyen. [facility] Work Phone: [phone] Nurse Note* Cathy Madera RN - 03/17/2023 [...] to monitor patient to ensure patient safety. [facility] Work Phone: [phone] Consult note* Lizz Brunson, SLIM-RADIOCOMMUNICATIONS TECHNICIAN - 03/16/2023 5:09 PM EST Consults Reason For Consult Medical management History Of Present Illness Abbey Garcia is a 32 y.o. female presenting with abdominal pain. 32-year-old female presents to [facility] for chief complaint of abdominal pain, [...] emergency room close to her home near [place], [place] for further evaluation and was promptly transferred to [facility] for further evaluation and treatment. The [...] medical history of MARSHAL (acute kidney injury) ([facility] Autoimmune disorder ([facility]/HCC), Bipolar disorder ([facility]CC), BPH (benign prostatic hyperplasia), Cerebral aneurysm, Cervical cancer ([facility]/HCC), Cervical disc disease, Chronic kidney disease, CKD (chronic kidney disease), Cognitivedecline, Crohn's disease ([facility]/HCC), Dementia ([facility]/HCC), Dysphagia, Endometrial cancer ([facility]/HCC), Esophageal cancer ([facility]CC), Esophageal disease, ESRD (end stage renal disease) ([facility]), Fibromyalgia, primary, Fractures, Gastric cancer ([facility]), Gender dysphoria, GI (gastrointestinal bleed), Hemodialysis status ([facility]), Hernia, internal, History of peritoneal dialysis, HIV disease ([facility]), Immunocompromised ([facility]), Liver disease, Lumbar disc disease, Mastocytosis, MS (multiple sclerosis) ([facility]), Muscular dystrophy ([facility] Myasthenia gravis ([facility] Neuromuscular disorder ([facility]), Ovarian cancer ([facility]), Pancreatitis, Peptic ulcer disease, Prematurity, PTSD (post-traumatic stress disorder), Schizophrenia ([facility]), Seizure disorder ([facility]), Spinal stenosis, Substanceaddiction ([facility]), Syncope, TIA (transient ischemic attack), Ulcerative colitis ([facility]), Urinary tract infection, Uterine cancer ([facility]), or Vertigo. Surgical History She [...] Grandfather Elan Artino Arthritis Paternal Grandfather Elan Phipps Hypertension Paternal Grandfather Elan Phipps Anesthesia related [...] consult. Will continue to follow. JAMA Smith [facility] Work Phone: [phone] Emergency department Note* Grecia Oates RN - 03/16/2023 5:00 PM EST Pt is requesting pain medication. MD Barker notified. Grecia Oates RN 03/16/23 170 [facility] Work Phone: [phone] Emergency department Note* rGecia Oates RN - 03/16/2023 5:00 PM EST Pt is requesting pain medication. MD Barker notified. Grecia Oates RN 03/16/23 170 * Grecia Oates RN - 03/16/2023 3:54 PM EST Pt has not been able to sustain orthostatic VS. She is not able to stand at this time. Grecia Oates RN 03/16/23 4604 * Grecia Oates RN - 03/16/2023 1:46 PM EST Pt arrived from [place] due to abdominal pain due to celiac [...] dictation software, please excuse any errors in hand flesher. Melisa Barker MD 03/16/231919 * HENNY Miller-C - 03/16/2023 1:37 PM EST HPI Chief Complaint Patient presents with Abdominal Pain Patient is a 32-year-old female history of gastric bypass surgery, median arcuate ligament syndromewith vascular surgery performed on March 05 transferred to [facility] from [facility] in [place] for abdominal pain and nausea vomiting. Patient states the abdominal pain is mid abdominal, no signs of surgical scar infection, states she has been unable to tolerate p.o. intake for 2 days now. She states she feels a burning cramping sensation around where her gastric pouch was placed. ER spoke with Dr. Magaña vascular surgeon who requested for patient to be sent to [facility] for further evaluation. Patient denies recent [...] Tue Mar 16, 2023 1421 Vascular surgery FOLLOW UP MANAGER wanted to put in the imaging study [...] recognition software. Please excuse any errors of hand flesher. My thought process and reason for plan [...] from: Patient, EMS, attending ER physician at [facility] Social Determinants of Health considered during this [...] 5 mg (5 mg intravenous Given 03/16/23 1278) Diagnostic/tests Labs Reviewed CBC WITH AUTO DIFFERENTIAL [...] and has been validated for use at [facility]. Negative results do not preclude COVID-19 infections or Influenza A/B infections, and should not be used as the sole basis for diagnosis, treatment, or other management decisions. If Influenza A/B and RSV PCR results are negative, testing for Parainfluenza virus, Adenovirus and Metapneumovirus is routinely performed for [facility] pediatric oncology and intensive care inpatients, [...] Dr. Magaña transferred ER to ER from [place] for further evaluation of her abdominal pain [...] Ngo RN 03/17/23 0826 documented in this [facility] Work Phone: [phone] Emergency department Note* Grecia Oates RN - 03/16/2023 3:54 PM EST Pt has not been able to sustain orthostatic VS. She is not able to stand at this time. Grecia Oates RN 03/16/23 5844 [facility] Work Phone: [phone] Note* Significant Event - Channing Oconnor DO [...] the emergency department in her hometown in [facility] yesterdaywith abdominal pain and sent home, again [...] issue which will be best done at [facility] either as inpatient or outpatient, where she has ongoing work, or is a postoperative situation that has been discussed multiple times with the primary operating service (and I have discussed with Tiffanie Mendez CNP with their service and there appears to be a good plan for imaging studies), and can ba admitted by their service). [facility] Work Phone: [phone] Evaluation + Plan noteExtracted from: Title:ED Note [...] 1 mL, Injection, IV Push, Once, Stop 03/15/23 16:19:00 EST, STAT, Start date 03/15/23 [...] = 1 tab(s), Tab-Dis, Oral, Once, Stop 03/16/23 10:32:00 EST, STAT, Start date 03/16/23 [...] 09:45:00 AM Scheduled Provider:Nasim JOHNSON, Rajni Ballesteros Location:[place] [facility] Appointment Type:URO Office Visit Future Scheduled Tests Radiology* US Renal 06/10/22 [facility]01-30-2024 Emergency department Triage note* Grecia Oates, RN - 03/16/2023 1:46 PM EST Pt arrived from [place] due to abdominal pain due to celiac rupture. [place]? Pt is A&O x3. States terrible pain in abdomen that doesn't go away. C/O nausea, vomiting, headaches, body chills. [facility] Work Phone: 1([phone]) 661-884401-30-2024 Emergency department Note* Linda Ngo RN - 03/16/2023 1:37 PM EST Into assess patient. Patient awake and A&OX4. Patient complains of incisional pain and requested Percocet for relief, rates pain 7/10. Assessed incisional wound on abdomen, incision well approximated, dry and scabbed, no drainage noted. Patient admits to surgery On 03/05/23 for MALS. Medicated with percocet as requested. Linda Ngo RN 03/17/23 08 [facility]01-30-2024 Emergency department Note* Linda Ngo RN - 03/16/2023 1:37 PM EST Report called to DEE Ortiz updated on patient's status. Linda Ngo RN 03/17/23 08 [facility] Work Phone: [phone] 318-393401-30-2024 Physician Emergency department Note* Melisa Barker MD [...] dictation software, please excuse any errors in hand flesher. Melisa Barker MD 03/16/231919 [facility] Work Phone: 1(180) 712-280101-30-2024 Physician Emergency department Note* Leatha Paul PA-C - 03/16/2023 1:37 PM EST HPI Chief Complaint Patient presents with Abdominal Pain Patient is a 32-year-old female history of gastric bypass surgery, median arcuate ligament syndromewith vascular surgery performed on March 05 transferred to [facility] from [facility] ER in [place] for abdominal pain and nausea vomiting. Patient states the abdominal pain is mid abdominal, no signs of surgical scar infection, states she has been unable to tolerate p.o. intake for 2 days now. She states she feels a burning cramping sensation around where her gastric pouch was placed. ER spoke with Dr. Magaña vascular surgeon who requested for patient to be sent to [facility] ER for further evaluation. Patient denies recent fever or chills. No other acute complaints at this time. [place] Coma Scale Score: 15 Patient History Past [...] Tue Mar 16, 2023 1421 Vascular surgery FOLLOW UP MANAGER wanted to put in the imaging study [...] at this time. He spoke with Tiffanie FOLLOW UP MANAGER for vascular surgery. He epic chatted me [...] recognition software. Please excuse any errors of hand flesher. My thought process and reason for plan [...] from: Patient, EMS, attending ER physician at [facility] Social Determinants of Health considered during this [...] 5 mg (5 mg intravenous Given 03/16/23 2028) Diagnostic/tests Labs Reviewed CBC WITH AUTO DIFFERENTIAL [...] and has been validated for use at [facility]. Negative results do not preclude COVID-19 infections or Influenza A/B infections, and should not be used as the sole basis for diagnosis, treatment, or other management decisions. If Influenza A/B and RSV PCR results are negative, testing for Parainfluenza virus, Adenovirus and Metapneumovirus is routinely performed for [facility] pediatric oncology and intensive care inpatients, [...] Dr. Magaña transferred ER to ER from [place] for further evaluation of her abdominal pain [...] Procedure Procedures Leatha Paul PA-C 03/16/23 1643 [facility] Work Phone: [phone]) 668-485901-29-2024 Hospital Discharge instructions Patient Education 03/15/2023 18:18:58 [...] Follow these instructions at home: Medicines Take gica-tkh-lrdpckw and prescription medicines only as told by [...] Watch your condition for any changes. Take zjhw-gyp-ynkudnk and prescription medicines only as told by [...] provider. Document Revised: 03/22/2020 Document Reviewed: 06/12/2019 [employer] Patient Education 2022 [employer]. Follow Up Care 03/15/2023 11:45:15 With:Your surgeon Dr. Magaña Address:Unknown When:03/16/2023 17:30:59 [facility]01-29-2024 Evaluation + Plan noteExtracted from: [...] 09:45:00 AM Scheduled Provider:Nasim JOHNSON, Rajni Ballesteros Location:[facility] Appointment Type:URO Office Visit Future Scheduled Tests Radiology* US Renal 06/10/22 [facility]01-24-2024 Hospital Discharge instructions* Discharge Instr - Diet* Yue German RN - 03/10/2023 3:19 PM EST Regular Diet [facility]: [phone] 143-740801-24-2024 History of Present illness Narrative* Keesha Jack [...] Pt cleared for dc. Updates ent to [facility] who the pt has already been active with, F2F, dc summary and AVS sent via [facility] in 1-2 days. Pt ok to dc. 03/10/23 1358 Discharge Planning Patient expects to be discharged to: [facility] * Tiffanie Mendez, AMMONIA SOLUTION PREPARER-RADIOCOMMUNICATIONS TECHNICIAN - 03/10/2023 11:32 AM EST Images from [...] for p.o. Valium and Percocet sent to [facility] pharmacy - Follow-up orders placed for 1 month virtual appoint with Dr. Magaña - Work note faxed to her work as well as uploaded into [employer] - Cleared for discharge from vascular standpoint. * FLAQUITO Knight - 03/10/2023 9:54 AM EST Occupational Therapy OT Treatment Patient Name: Abbey Garcia Today's Date: 03/10/2023 Time Calculation Start Time: 0849 Stop Time: 0912 Time Calculation (min): 23 min Assessment: OT [...] LE Dressing: Yes LE Dressing Adaptive Equipment: Weaving Loom Operator, Sock aide Pants Level of Assistance: Setup, [...] functional mobility a short household distance at [facility] for safety with close S. Pt demonstrating fair+/good standing balance with increased fatigue noted throughout task Outcome Measures:[facility] Daily Activity Putting on and taking off [...] via laparotomy (03/05). Spoke with RN and RADIOCOMMUNICATIONS TECHNICIAN regarding plans for consult. Theplan is for [...] BID, Chrissy Harris PA-C, 10 mg at 03/09/23820 dextrose 10 % in water (D10W) infusion, [...] Daily, Chrissy Harris PA-C, 40 mg at 03/09/23820 escitalopram (Lexapro) tablet 20 mg, 20 mg, oral, Daily, Chrissy Harris PA-C, 20 mg at 03/09/23820 famotidine (Pepcid) tablet 20 mg, 20 mg, oral, BID, 20 mg at 03/09/23820 OR famotidine PF (Pepcid) injection 20 mg, [...] LE Dressing: Yes LE Dressing Adaptive Equipment: Weaving Loom Operator, Sock aide Pants Level of Assistance: Setup, [...] advice provided to abside by precautions Outcome Measures:[facility] Daily Activity Putting on and taking off [...] by discharge. Outcome: Progressing * Alicia Toro APRN-BETH - 03/09/2023 10:50 AM EST Abbey Garcia [...] INDICATION: Signs/Symptoms:post op COMPARISON: None ACCESSION NUMBER(S): [id number] ORDERING CLINICIAN: JASON FOSTER TECHNIQUE: Frontal and [...] Sara Zarate 03/06/2023 1:48 PM Dictation workstation: [id number] Physical Exam Constitutional: Appearance: Normal appearance. HENT: [...] steps, 1 rail, non-reciprocating pattern. Outcome Measures: [facility] Basic Mobility Turning from your back to [...] End: 03/20/23 Resolved: 03/09/23 * Jason Foster, AMMONIA SOLUTION PREPARER-RADIOCOMMUNICATIONS TECHNICIAN - 03/09/2023 10:24 AM EST Abbey Garcia [...] ILIANA Morrell - 03/09/2023 9:24 AM EST [facility] state pt is already active with them and are able to continue to provide Rn for tpn and added PT. 03/09/23 0923 Discharge Planning Patient expects to be discharged to: [facility] * ILIANA Morrell - 03/08/2023 2:52 [...] Morrow with [facility], prescriptions filled through [facility] in [place]. Discussion around dc planning needs with the pt stating she will probably benefit from home health PT. Referrals sent to homecare agencies that service where she lives, these agencies include [facility], [address], , [facility], [facility], await responses. 03/08/23 6152 Discharge Planning Patient expects to be discharged to: Home with [facility] * Anam Khoury, PT - [...] prior to attempting to sit Outcome Measures: [facility] Basic Mobility Turning from your back to [...] required d/t increase pain and fatigue Outcome Measures:[facility] Daily Activity Putting on and taking off [...] 16 Education Documentation Precautions, taught by FLAQUITO Knihgt at 03/08/2023 12:46 PM. Learner: Patient Readiness: [...] by discharge. Outcome: Progressing * Alicia Toro APRN-RADIOCOMMUNICATIONS TECHNICIAN - 03/08/2023 11:04 AM EST Abbey Garcia [...] 03/08/2023 1104 Last data filed at 03/08/2023 0596 Gross per 24 hour Intake 1017.5 ml Output 1660 ml Net -642.5 ml Admission Weight Weight: 82.1 kg (181 lb) (03/05/23 0642) Daily Weight 03/08/23 : 84.3 kg (185 lb 13.6 oz) Image Results XR chest 1 view Narrative: Interpreted By: Sara Zarate, STUDY: XR CHEST 1 VIEW; 03/06/2023 7:32 am INDICATION: Signs/Symptoms:post op COMPARISON: None ACCESSION NUMBER(S): [id number] ORDERING CLINICIAN: JASON FOSTER TECHNIQUE: Frontal and [...] Sara Zarate 03/06/2023 1:48 PM Dictation workstation: [id number] Physical Exam Constitutional: Appearance: Normal appearance. HENT: [...] or performed during the hospital encounter of 01/19/24 (from the past 24 hour(s)) POCT GLUCOSE [...] INDICATION: Signs/Symptoms:post op COMPARISON: None ACCESSION NUMBER(S): [id number] ORDERING CLINICIAN: JASON FOSTER TECHNIQUE: Frontal and [...] Sara Zarate 03/06/2023 1:48 PM Dictation workstation: [id number] Physical Exam Constitutional: Appearance: Normal appearance. HENT: [...] due to increased fatigue levels. Outcome Measures: [facility] Basic Mobility Turning from your back to [...] INDICATION: Signs/Symptoms:post op COMPARISON: None ACCESSION NUMBER(S): [id number] ORDERING CLINICIAN: JASON FOSTER TECHNIQUE: Frontal and [...] Sara Zarate 03/06/2023 1:48 PM Dictation workstation: [id number] Physical Exam Constitutional: General: She is not [...] proph Karma Sharpe MD * Jason Foster, AMMONIA SOLUTION PREPARER-RADIOCOMMUNICATIONS TECHNICIAN - 03/06/2023 1:57 PM EST Abbey Garcia [...] 50 mg, oral, BID Continuous medications potassium brnastxg-Z9-9.9%NaCl, 125 mL/hr, Last Rate: 125 mL/hr (03/06/23 [...] Today's Date: 03/06/23 Time Calculation Start Time: 754 Stop Time: 829 Time Calculation (min): 35 min Assessment: OT [...] recliner for comfort Prior Function: Level of [place]: Independent with ADLs and functional transfers, Independent with homemaking with ambulation ADL Assistance: Independent Homemaking Assistance: Independent Ambulatory Assistance: Independent 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) Hand Dominance: Right Prior Function Comments: pt was active and driving in community; 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 [employer] ADL: Eating Assistance: Independent Grooming Assistance: Moderate [...] Gross Grasp: Functional Coordination: Functional Outcome Measures: [facility] Daily Activity Putting on and taking off [...] Prior Function Per Pt/Caregiver Report Level of [place]: Independent with ADLs and functional transfers, Independent with homemaking with ambulation Receives Help From: (spouse and mother) ADL Assistance: Independent Ambulatory Assistance: Independent Prior Function Comments: pt was active and driving in community; 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 Take before meals. Pt to picker feeder prescription ondansetron ODT (Zofran-ODT) 4 mg disintegrating tablet Take 1 tablet (4 mg) by mouth every 8 hoursif needed for nausea. 03/05/2023 Codeine and Nsaids (non-steroidal anti-inflammatory drug) Social History Tobacco Use Smoking status: Never Smokeless tobacco: Never Substance Use Topics Alcohol use: Not Currently Drug use: Never Family History Problem Relation Name Age of Onset Diabetes Mother Jessica Artino Hypertension Mother Jessica Coronaino Cancer Maternal Grandfather Cedrick Kraus COPD Maternal Grandfather Cedrick Kraus Heart disease Maternal Grandfather Cedrick Kraus Kidney disease Maternal Grandfather Cedrick Kraus Hypertension Maternal Grandmother Grandpa Anesthesia problems Paternal Grandfather Elan Artino Arthritis Paternal Grandfather Elan Artino Hypertension Paternal Grandfather Elan Artino Anesthesia related problems Paternal Grandfather Elan Artino COPD Paternal Grandmother Grandmother Diabetes Paternal Grandmother Grandmother Asthma Brother [facility] Medications: potassium trozqlvy-V5-0.9%NaCl, 125 mL/hr, Last Rate: 125 mL/hr (03/06/23 [...] mg, intravenous, BID, Baldomero Richards, [facility], 20 mg at 03/05/23 2143 ferrous [...] ICU skin protocol Ethics/Code Status: Full code Guest Relations Coordinator: DVT Prophylaxis: Lovenox GI Prophylaxis: pepcid Bowel Regimen: miralax Diet: Clear liquids CVC: none Yoli: yes - left radial Long: yes Restraints: no Dispo: ICU Critical Care Time: 40 minutes Chrissy Harris PA-C [facility]: 1([phone]) 215-561301-24-2024 Nurse Note* Edilia Darby RN - 03/10/2023 11:57 AM EST Patient with Rt arm dual lumen picc, dressing D&I, red lumen in use without difficulty, purple lumen flushes easily and with positive blood return, curos cap applied. [facility]01-24-2024 Nurse Note* Edilia Darby RN - 03/10/2023 [...] scanned for over 650cc, pt straight cath [id number] * Olga Paz RN - 03/07/2023 5:47 [...] will reach out to vascular doctor and FOLLOW UP MANAGER for the order. * Ron Mancera RN - 03/05/2023 1:58 PM EST Informed BASTING MACHINE OPERATOR to ask Dr. Magaña for admit orders prior to transfer. documented in this [facility] Work Phone: [phone]) 389-199301-24-2024 Nurse Note* Nadia Zee RN - 03/10/2023 11:36 AM EST Long catheter removed [facility]01-24-2024 Nurse Note* Eileen Austin RN - 03/10/2023 12:14 AM EST Blood sugar 79 gave patient hailee crackers and pudding. Complained 08/24 pain percocet was given [facility]01-23-2024 Consult note* Jin Vargas MD - 03/09/2023 [...] CKD (chronic kidney disease), Cognitivedecline, Crohn's disease ([facility]/HCC), Dementia ([facility]/HCC), Dysphagia, Endometrial cancer ([facility]/HCC), Esophageal cancer ([facility]/HCC), Esophageal disease, ESRD (end stage renal disease) ([facility]/HCC), Fibromyalgia, primary, Fractures, Gastric cancer ([facility]/HCC), Gender dysphoria, GI (gastrointestinal bleed), Hemodialysis status ([facility]/HCC), Hernia, internal, History of peritoneal dialysis, HIV disease ([facility]/HCC), Immunocompromised ([facility]/HCC), Liver disease, Lumbar disc disease, Mastocytosis, MS (multiple sclerosis) ([facility]/HCC), Muscular dystrophy ([facility]/HCC), Myasthenia gravis ([facility]/HCC), Neuromuscular disorder ([facility]/HCC), Ovarian cancer ([facility]/HCC), Pancreatitis, Peptic ulcer disease, Prematurity, PTSD (post-traumatic stress disorder), Schizophrenia ([facility]), Seizure disorder ([facility]/HCC), Spinal stenosis, Substanceaddiction ([facility]/HCC), Syncope, TIA (transient ischemic attack), Ulcerative colitis ([facility]/HCC), Urinary tract infection, Uterine cancer ([facility]/HCC), or Vertigo. Surgical History She has a [...] care of this patient. Jin Vargas MD [facility] Work Phone: [phone] 552-405501-23-2024 Consult note* Jin Vargas MD - 03/09/2023 [...] Irritable bowel syndrome, Median arcuate ligament syndrome ([facility]/HCC), PCOS (polycystic ovarian syndrome), PONV (postoperative nausea and vomiting), PUD (peptic ulcer disease), and Shortness of breath. She has no past medical history of MARSHAL (acute kidney injury) ([facility]), Autoimmune disorder ([facility]), Bipolar disorder ([facility]), BPH (benign prostatic hyperplasia), Cerebral aneurysm, Cervical cancer ([facility]), Cervical disc disease, Chronic kidney disease, CKD (chronic kidney disease), Cognitivedecline, Crohn's disease ([facility]), Dementia ([facility]), Dysphagia, Endometrial cancer ([facility]), Esophageal cancer ([facility]), Esophageal disease, ESRD (end stage renal disease) ([facility]), Fibromyalgia, primary, Fractures, Gastric cancer ([facility]), Gender dysphoria, GI (gastrointestinal bleed), Hemodialysis status ([facility]), Hernia, internal, History of peritoneal dialysis, HIV disease ([facility]), Immunocompromised ([facility]), Liver disease, Lumbar disc disease, Mastocytosis, MS (multiple sclerosis) ([facility]), Muscular dystrophy ([facility]), Myasthenia gravis ([facility]), Neuromuscular disorder ([facility]), Ovarian cancer ([facility]), Pancreatitis, Peptic ulcer disease, Prematurity, PTSD (post-traumatic stress disorder), Schizophrenia ([facility]), Seizure disorder ([facility]), Spinal stenosis, Substanceaddiction ([facility]), Syncope, TIA (transient ischemic attack), Ulcerative colitis ([facility]), Urinary tract infection, Uterine cancer ([facility]), or Vertigo. Surgical History She [...] noted in Dr. 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 She was seen at [facility] by Dr. Kat and underwent an [...] This is with Dr. Ramos over the [facility]. Currently any oral intake will [...] 650 mg, rectal, q4h PRN, Jason Foster APRN-RADIOCOMMUNICATIONS TECHNICIAN albuterol 2.5 mg /3 mL (0.083 %) [...] mg, intravenous, BID, Baldomero Richards, [facility], 20 mg at 03/06/23 0854 ferrous [...] injection 4 mg, 4mg, intravenous, q8h PRN, JAAM Lynn, 4 mg at 03/06/23 0603 oxyCODONE-acetaminophen [...] Follow up Comment: 03/09/23 documented in this [facility] Work Phone: [phone]) 369-622501-23-2024 Nurse Note* Yue Ferris RN - 03/09/2023 2:22 PM EST Upon rounding right upper arm dual lumen PICC with current CHG dressing dry and intact. One lumen in use, one with brisk blood return and flushes easily, Curos cap intact. [facility]01-22-2024 Plan of care note* Care Plan - Danny Middleton RN - 03/08/2023 11:21 PM EST The patient's goals for the shift include rest The clinical goals for the shift include pain will be controled overnight. [facility]01-22-2024 Miscellaneous Notes* Care Plan - Danny Middleton [...] Procedures Release Median Arcuate Ligament by LAPAROTOMY [id number] - MT UNLISTED PX ABDOMEN MUSCULOSKELETAL SYSTEM Surgeons * Sherry Magaña - Primary Resident/Fellow/Other Dairy Cattle Farm Worker: Surgeon(s) and Role: Procedure Summary Anesthesia: General ASA: III Anesthesia Staff: Anesthesiologist: Serena George DO BILLING CONTROL CLERK: Maricruz Yip APRN-THOMAS Estimated Blood Loss: 2mL [...] EXAM Sherry Magaña MD 03/05/2023 1125 Staff: Packaging Coordinator: Mary Mccabe RN; Natalie Young RN Scrub Person: Nadia Escobedo; Thu Ford Drains and/or Catheters: NG/OG/Feeding Tube NG - [place] sump 16 Fr Right nostril (Active) Tube [...] MEMBRANE, SEPRAFILM, 5 X 6 IN - [id number] Implanted Findings: heavily inflammed ligamentous tissues and [...] present and scrubbed for the entire procedure. [place] documented in this [facility] Work Phone: [phone]) [phone] Plan of care note* Care Plan - [...] meds throughout the shift Outcome: Progressing . [facility]01-22-2024 Plan of care note* Care Plan - Olga Paz RN - 03/08/2023 2:27 AM EST The patient's goals for the shift include rest The clinical goals for the shift include increase activity Over the shift, the patient did not make progress toward the following goals. Barriers to progression include weak/pain. Recommendations to address these barriers include administer medications/interventions as ordered. [facility] Work Phone: [phone] Nurse Note* Olga Paz RN - 03/08/2023 1:[address] Oconnor notified of retained urine. Order to insert long catheter. 16F long catheter placed, clear yellow urine return. Pt tolerated well. [facility]01-22-2024 Nurse Note* Olga Paz RN - 03/08/2023 12:48 AM EST Pt unable to urinate but continues to have an urge to do so. Bladder scan performed with 1152ml found. Page out to hospitalist. [facility] Work Phone: [phone] Nurse Note* Nadia Zee RN - 03/07/2023 5:09 PM EST Pt with 10cc urine output since long removed, bladder scanned for over 650cc, pt straight cath [id number] [facility] Work Phone: [phone] Plan of care note* Care Plan - Nadia Zee RN - 03/07/2023 8:50 AM EST The patient's goals for the shift include rest The clinical goals for the shift include increase activity Over the shift, the patient did not make progress toward the following goals. Barriers to progression include . Recommendations to address these barriers include . [facility] Work Phone: [phone] Nurse Note* Olga Paz RN - 03/07/2023 5:47 AM EST Long catheter removed per order. Pt tolerated well [facility] Work Phone: [phone] 940-311201-20-2024 Plan of care note* Care Plan - Olga Paz RN - 03/06/2023 8:57 PM EST The patient's goals for the shift include rest The clinical goals for the shift include increase activity Over the shift, the patient did not make progress toward the following goals. Barriers to progression include weak/pain. Recommendations to address these barriers include encouragement/administer medications/interventions as ordered. [facility] Work Phone: [phone]) 718-866001-20-2024 Nurse Note* Vic Gilliland RN - 03/06/2023 4:22 PM EST Seeking clarification of appropriate disposition of patient and possible transfer to SDU. Patient understands possibility of transfer. 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 She was seen at [facility] by Dr. Kat and underwent an [...] This is with Dr. Ramos over the [facility]. Currently any oral intake will [...] mg, intravenous, BID, Baldomero Richards, [facility], 20 mg at 03/06/23 0854 ferrous [...] tablet, oral, q4h PRN, Jason Mckeon APRN-BETH polyethylene glycol (Glycolax, Miralax) packet 17 g, [...] Needed?: 3-5 days Follow up Comment: 03/09/23 [facility]01-20-2024 Plan of care note* Care Plan - [...] Recommendations to address these barriers include steroids. [facility] Work Phone: [phone] 517-882801-20-2024 Nurse Note* Vic Gilliland RN - 03/06/2023 9:01 AM EST Returned to bed with assist of two. Head of bed elevated 45 degrees. [facility] Work Phone: [phone] 511-776901-19-2024 Nurse Note* Ron Mancera RN - 03/05/2023 4:[address] Magaña at bedside, informed of the muscle spasm and administering PRN diazepam. No new orders placed. Plan to remove NGT tomorrow morning. [facility] Work Phone: [phone] 530-640801-19-2024 Plan of care note* Care Plan - [...] 1549 by Ron Mancera RN Outcome: Progressing [facility] Work Phone: [phone] 352-344601-19-2024 History and physical note* Desmond Tirado PA-C - 03/05/2023 2:49 PM EST [facility] Critical Care Medicine Date: [...] the morning. Take before meals. Pt to picker feeder prescription ondansetron ODT (Zofran-ODT) 4 mg disintegrating [...] Grandmother Diabetes Paternal Grandmother Grandmother Asthma Brother [facility] Medications: Current Facility-Administered Medications: acetaminophen (Tylenol) tablet 650 mg, 650 mg, oral, q4h PRN OR acetaminophen (Tylenol) oral liquid 650 mg, 650 mg, oral, q4h PRN OR acetaminophen (Tylenol) suppository 650 mg, 650 mg, rectal, q4h PRN, Jason Foster, AMMONIA SOLUTION PREPARER-BETH HYDROmorphone (Dilaudid) injection 0.5 mg, 0.5 mg, [...] ICU skin protocol Ethics/Code Status: Full code Guest Relations Coordinator: DVT Prophylaxis: none GI Prophylaxis: pepcid Bowel [...] Desmond Tirado PA-C [facility] Work Phone: [phone] History and physical note* Desmond Tirado PA-C - 03/05/2023 2:49 PM EST [facility] Critical Care Medicine Date: [...] the morning. Take before meals. Pt to picker feeder prescription ondansetron ODT (Zofran-ODT) 4 mg disintegrating [...] Mother Jessica Artino Cancer Maternal Grandfather Cedrick Krasu COPD Maternal Grandfather Cedrick Kraus Heart disease Maternal Grandfather Cedrick Kraus Kidney disease Maternal Grandfather Cedrick Kraus Hypertension Maternal Grandmother Grandpa Anesthesia problems Paternal Grandfather Elan Artino Arthritis Paternal Grandfather Elan Artino Hypertension Paternal Grandfather Elan Artino Anesthesia related problems Paternal Grandfather Elan Artino COPD Paternal Grandmother Grandmother Diabetes Paternal Grandmother Grandmother Asthma Brother [facility] Medications: Current Facility-Administered Medications: acetaminophen (Tylenol) tablet [...] 17.2 mg, 2 tablet, oral, BID, Jason Foster, AMMONIA SOLUTION PREPARER-RADIOCOMMUNICATIONS TECHNICIAN Review of Systems: Review of Systems Constitutional: [...] ICU skin protocol Ethics/Code Status: Full code Guest Relations Coordinator: DVT Prophylaxis: none GI Prophylaxis: pepcid Bowel Regimen: miralax Diet: NPO CVC: none [place]: yes - left radial Long: yes Restraints: no Dispo: ICU Critical Care Time: 60 minutes spent in preparing to see patient (I.e.labs,imaging, etc.), documentation, discussion plan of care with patient/family/caregiver, and/ or coordination of care with multidisciplinary team including the attending. Time does not include completion of procedure time. 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 She was seen at [facility] by Dr. Kat and underwent an [...] This is with Dr. Ramos over the [facility]. Currently any oral intake will [...] with Dr. Deacon Kat. documented in this [facility] Work Phone: [phone] 320-617301-19-2024 Nurse Note* Ron Mancera RN - 03/05/2023 2:01 PM EST Patient in the unit from PACU, unable to transfer in [facility]. No admit order yet. PACU Rns saw the warning note when trying to transfer the patient without admit orders. PACU staff will reach out to vascular doctor and FOLLOW UP MANAGER for the order. [facility] Work Phone: [phone] Nurse Note* Ron Mancera RN - 03/05/2023 1:58 PM EST Informed BASTING MACHINE OPERATOR to ask Dr. Magaña for admit orders prior to transfer. [facility] Work Phone: [phone] Note* Perioperative Nursing Note - Samantha Fields RN - 03/05/2023 1:52 PM EST Patient meets PACU discharge criteria. [facility]01-19-2024 Note* Perioperative Nursing Note - Samantha Fields RN - 03/05/2023 1:07 PM EST Patient to PACU bay 7 with left radial art line in place. Zeroed and waveforms appropriate. Clean/dry and intact. VSS. [facility] Work Phone: [phone] Note* Op Note - Sherry Magaña MD [...] Procedures Release Median Arcuate Ligament by LAPAROTOMY 16150 - MT UNLISTED PX ABDOMEN MUSCULOSKELETAL SYSTEM Surgeons * Sherry Magaña - Primary Resident/Fellow/Other [employer] Worker: Surgeon(s) and Role: Procedure Summary Anesthesia: General ASA: III Anesthesia Staff: Anesthesiologist: Serena George DO BILLING CONTROL CLERK: Maricruz Yip APRN-THOMAS Estimated Blood Loss: 2mL [...] SURGICAL PATHOLOGY EXAM Sherry Magaña MD 03/05/2023 1954 Staff: Packaging Coordinator: Mary Mccabe RN; Natalie Young RN Scrub Person: Nadia Escobedo; Thu Ford Drains and/or Catheters: NG/OG/Feeding Tube NG - [place] sump 16 Fr Right nostril (Active) Tube [...] MEMBRANE, SEPRAFILM, 5 X 6 IN - [id number] Implanted Findings: heavily inflammed ligamentous tissues and [...] scrubbed for the entire procedure. 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 She was seen at [facility] by Dr. Kat and underwent an [...] This is with Dr. Ramos over the [facility]. Currently any oral intake will [...] UGIS. Will discuss with Dr. Deacon Kat. [facility] Work Phone: [phone] 185-886412-14-2023 NoteHNO ID: [id number] Author: Rylee Thacker APRN.RADIOCOMMUNICATIONS TECHNICIAN Service: ? Author Type: Nurse Practitioner Type: Progress Notes Filed: 01/28/2023 3:12 PM Note Text: [facility]oint[facility]12-04-2023 Miscellaneous Notes* Telephone Encounter - Laura Rodas, DEE - 01/18/2023 9:20 AM EST Call placed [facility] to confirm received potassium orders for (K-2.9). No answer and left message for Thea, cnc machine setter from [facility]. (Do not feel Dr. Kat is managing TPN as well) * Telephone Encounter - Dorita Manning - 01/15/2023 11:47 AM EST [facility] called regarding potassium level. Level was 2.9. Patient already on max dose of potassium allowed with her TPN. They are asking for recommendations # [phone] documented in this encounterMercy [facility] Center11-27-2023 Miscellaneous Notes* Telephone Encounter [...] if so ok to call her back [phone] Ok to leave a message documented in this encounterMercy Health Springfield [facility] Center11-27-2023 Miscellaneous Notes* Telephone Encounter - Fern Jonas LPN - 01/11/2023 10:49 AM EST Surg request placed, pt aware, instructions given verbally and via mychart, all questions and concerns addressed. documented in this encounterBonnie Ville [address]-27-2023 NoteHNO ID: [id number] Author: Fern Jonas LPN Service: ? 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 Vic Ramos MD January 08, 2023 documented in this encounterMercy Health Springfield [facility] Center11-22-2023 Miscellaneous Notes* Telephone Encounter [...] to pain for visit. documented in this encounterMercy Health Springfield [facility] Center11-16-2023 Hospital Discharge instructions Patient [...] oral rehydration solution (ORS). This is an rlae-mth-sjrdyku medicine that helps return your body to [...] drinks, sports drinks, and soda. Eat bland, kuwe-ym-yldnit foods in small amounts as you are able. These foods include bananas, applesauce, rice, lean meats, toast, and crackers. Avoid alcohol. Avoid spicy or fatty foods. Medicines Take anrr-txx-abidmsv and prescription medicines only as told by your health care provider. If you were prescribed an antibiotic medicine, take it as told by your health care provider. Do notstop using the antibiotic even if you start to feel better. General instructions Wash your hands often using soap and water. If soap and water are not available, use a hand braille teacher. Others in the household should wash their [...] soap and water are not available, usehand braille teacher. Contact a health care provider if your diarrhea gets worse or you have new symptoms. Get help right away if you have signs of dehydration. This information is not intended to replace advice given to you by your health care provider. Make sure you discuss any questions you have with your health care provider. Document Revised: 08/13/2021 Document Reviewed: 08/13/2021 [employer] Patient Education 2022 [employer]. 12/31/2022 16:02:59 Abdominal Pain, Adult Abdominal Pain, [...] Follow these instructions at home: Medicines Take ohti-zmb-xuxxcag and prescription medicines only as told by [...] Watch your condition for any changes. Take nqza-xxi-stjykee and prescription medicines only as told by [...] provider. Document Revised: 03/22/2020 Document Reviewed: 06/12/2019 [employer] Patient Education 2022 [employer]. Follow Up Care 12/31/2022 12:31:54 With:Jaquan Morrow Address: [address] [place] [address] [id number] Business (1) When:01/03/2023 15:35:16 [facility]11-16-2023 Evaluation + Plan noteExtracted from: [...] Date:01/20/2023 10:00:00 AM Scheduled Provider:Nasim JOHNSON, Rajni Ballesteors Location:[facility] Appointment Type:URO Office Visit Future Scheduled Tests Radiology* US Renal 06/10/22 [facility]11-13-2023 Miscellaneous Notes* Telephone Encounter - Shanique Manning HUC - 12/28/2022 4:05 PM EST BMI Incoming Patient Nursing Line Call Summary: Situation/Concerns Melisa Potter's called [phone] called and said Abbey needs a RTWletter stating she can return to work with a pick line. The [employer] she works for states Abbey canonly work 1/2 day because she has the pick line and it must stated in the letter. Background/Duration of event: TOÑITO Assessment/Subjective symptoms: as noted above. Recommendation/How message sent to provider/nurse:Itzel Hurley RN via Telephone Encounter. CHRIS Katz documented in this encounterMercy Health Springfield [facility] Center10-30-2023 History of Present illness [...] visit. Either the patient or their legal branch sales and service representative has been informed of the risks [...] opinion. Deacon Kat MD documented in this encounterMercy Health Springfield [facility] Center10-30-2023 [facility]10-25-2023 NoteK[facility]10-25-2023 NoteK[facility]10-25-2023 NoteK[facility]10-24-2023 Note [facility]10-23-2023 NoteK[facility]10-23-2023 NoteK[facility]10-23-2023 NoteK[facility] 12-04-2022 History and physical note* Agustin Zamorano [...] started since her last admission to [facility] last week. Patient's weight has [...] 12/16/2022 Time: 2:19 PM documented in this encounterMercy Health Springfield Regional Medical Center10-19-2023 Miscellaneous Notes* Telephone Encounter - Oliva Dobbs RN - 12/03/2022 2:00 AM EDT BMI SPECIALTY CARE COORDINATION TELEPHONE ENCOUNTER Patient hospitalized 11/27 unsure if d/c. Referred to Dr Kat who referred to Dr Zamorano [facility] of hypothyroidism, HTN, gastric ulcer, [...] for MALS- plans for surgical intervention at [facility] Consult scheduled with Dr Zamorano on 12/04. Will r/s if pt still in house. 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 referral to GI specialist , on TPN documented in this encounterMercy Health Springfield Regional Medical Center10-17-2023 Miscellaneous Notes* Telephone Encounter - Li Kimball RN - 12/01/2022 2:32 PM EDT Patient remains admitted at [facility]. Patient received a PICC line for home TPN to bridge her to surgery. Patient is scheduled with Dr. Zamorano for virtual consult 12/04/2022. Patient with increasednausea with TPN, [facility] continues to adjust medications. Li Kimball RN documented in this encounterMercy Health Springfield Regional Medical Center10-14-2023 NoteHNO ID: [id number] Author: Note, Interface Service: ? Author Type: ? Type: Progress Notes Filed: 11/28/2022 5:10 AM Note Text: Epic Scheduled Downtime: 11/28/2022 1:00:00 AM to 11/28/2022 1:28:00 [facility]10-14-2023 NoteHNO ID: [id number] Author: Note, Interface Service: ? Author Type: ? Type: Progress Notes Filed: 11/28/2022 3:45 AM Note Text: Epic Scheduled Downtime: 11/28/2022 1:00:00 AM to 11/28/2022 1:28:00 [facility] CenterWjkh[facility]od98-61-4613 NoteHNO ID: [id number] Author: Note, Interface Service: ? Author Type: ? Type: Progress Notes Filed: 11/28/2022 3:27 AM Note Text: Epic Scheduled Downtime: 11/28/2022 1:00:00 AM to 11/28/2022 1:28:00 [facility]10-12-2023 NoteHNO ID: [id number] Author: Quyen Deshpande RN Service: ? Author Type: Registered Nurse Type: Progress Notes Filed: 11/26/2022 10:37 AM Note Text: Patient in office for hydration infusion. Patient tolerated infusion well. [facility] [id number] Miscellaneous Notes* Telephone Encounter - Kristin Hu RN - 11/25/2022 12:55 PM EDT Left message confirming pts appt tomorrow in the chronic care clinic for hydration. documented in this encounterMercy Health Springfield Regional Medical Center10-09-2023 Miscellaneous Notes* Telephone Encounter - Li Kimball RN - 11/23/2022 2:26 PM EDT Mesenteric ultrasound scheduled for 11/26/2022 at [facility], patient notified. Li Kimball RN * Telephone Encounter - Li Kimball RN - 11/23/2022 12:31 PM EDT I spoke to the patient's and advised that I have a request out to [place] for IV hydration and Dr. Kat has [...] pain. Li Kimball RN documented in this encounterMercy Health Springfield Regional Medical Center10-08-2023 [facility] 11-22-2022 [facility]angeWqordijo87-28-6496 NoteLawrence General HospitalKksphwug43-44-2166 NoteHNO ID: [id number] Author: Rajni Walsh RN Service: ? Author Type: Registered Nurse Type: Nursing Progress Note Filed: 11/18/2022 10:13 AM Note Text: Other: C/o ultram not working.Will see about another order.Urine was sent to lab.Will reassess.[facility] [id number] NoteLawrence General HospitalHdgkogfb07-47-4281 Miscellaneous Notes* Telephone Encounter - Li Kimball RN - 11/16/2022 11:51 AM EDT Patient called and states she continues to have abdominal pain and is asking for a Tramadol prescription. Patient also asking for IV fluids as her fluid intake is still not normal. Li Kimball RN documented in this encounterMercy Health Springfield Regional Medical Center09-29-2023 NoteHNO ID: [id number] Author: Pablo Lebron PSYD Service: ? Author Type: Psychologist Type: Progress Notes Filed: 11/13/2022 8:36 AM Note Text: Assessment was conducted over the phone due to pt's technical difficulties. Patient is a resident of [place], and completed the assessment over the phone in [place]. Psychologist is licensed and stationed in [place]. Informed consent was discussed and verbal assent [...] Focused Psychotherapy, Supportive Therapy PROGRESS TO DATE: Custodial Progress: Stable Short Term Condition: Stable GOALS/OBJECTIVES/INTERVENTIONS: To identify and implement tools for effectively managing symptoms of anxiety, stress, and low mood. Approximately 40 minutes were spent with the patient doing therapy. Pablo Lebron PsyDDanvers State Hospital09-28-2023 NoteLawrence General HospitalIcoenwqc04-28-2371 NoteLawrence General HospitalTizuwvow21-66-1871 NoteLawrence General HospitalTrpzfcvk14-54-3864 History of Past illness Narrative* Problem Noted [...] of this encounter (statuses as of 11/17/2022) [facility]09-27-2023 History of Past illness [...] of this encounter (statuses as of 11/18/2022) [facility]09-27-20[facility] History of Past illness [...] of this encounter (statuses as of 11/21/2022) [facility]09-27-20[facility] History of Past illness [...] of this encounter (statuses as of 11/24/2022) [facility]09-[facility]20[facility] History of Past illness [...] of this encounter (statuses as of 11/25/2022) [facility]09-[facility] History of Past illness [...] of this encounter (statuses as of 11/27/2022) [facility]09[facility] History of Past illness [...] of this encounter (statuses as of 12/02/2022) [facility]09-[facility] History of Past illness [...] of this encounter (statuses as of 12/03/2022) [facility]09[facility] History of Past illness [...] of this encounter (statuses as of 12/15/2022) [facility]09[facility] History of Past illness [...] of this encounter (statuses as of 12/15/2022) [facility]09-[facility] History of Past illness [...] of this encounter (statuses as of 12/17/2022) [facility]09[facility] History of Past illness [...] of this encounter (statuses as of 12/31/2022) [facility]09[facility] History of Past illness [...] of this encounter (statuses as of 01/06/2023) [facility]09[facility] History of Past illness [...] of this encounter (statuses as of 01/08/2023) [facility]09[facility] History of Past illness [...] of this encounter (statuses as of 01/11/2023) [facility]09[facility] History of Past illness [...] of this encounter (statuses as of 01/11/2023) [facility]09[facility] History of Past illness [...] of this encounter (statuses as of 01/12/2023) [facility] History of Past illness [...] of this encounter (statuses as of 01/18/2023) [facility] History of Past illness [...] of this encounter (statuses as of 01/18/2023) [facility] History of Past illness [...] of this encounter (statuses as of 04/07/2023) [facility]09[facility] History of Past illness [...] of this encounter (statuses as of 05/05/2023) [facility]09[facility] History of Past illness [...] of this encounter (statuses as of 05/07/2023) [facility] History of Past illness [...] of this encounter (statuses as of 05/10/2023) [facility] History of Past illness [...] of this encounter (statuses as of 05/18/2023) [facility] History of Past illness [...] of this encounter (statuses as of 05/27/2023) [facility] History of Past illness [...] of this encounter (statuses as of 05/28/2023) [facility] History of Past illness [...] of this encounter (statuses as of 05/28/2023) [facility] History of Past illness [...] of this encounter (statuses as of 05/30/2023) [facility]09[facility] History of Past illness [...] of this encounter (statuses as of 06/02/2023) [facility]09-26-2023 NoteKettering Memorial Hospital09-25-2023 Miscellaneous Notes* Telephone Encounter - Li Kimball RN - 11/09/2022 4:40 PM EDT Patient notified that surgery has to be moved to Wednesday as gastroenterology is no longer available to assist. I encouraged the patient to come to [place] ED if pain worsens or she develops an newor other concerning symptoms. Patient stated understanding and had no further questions. Li Kimball RN documented in this encounterMercy Health Springfield Regional [facility] 11-06-2022 Miscellaneous Notes* Telephone Encounter - Li [...] within 10-15 minutes. Patient remains admitted to [facility] and is scheduled for a HIDA [...] questions. Li Kimball RN documented in this encounterMercy Health [facility]09-22-2023 [facility] 11-06-2022 [id number] History of Present illness Narrative* Agustin Sheets, [...] radiation safety can be found usingthis link: [email or web address] SIGNATURE: RT Oj(Zita) PATIENT NAME: Abbey Garcia DATE: November 06, 2022 TIME: 10:54 AM PAGER/CONTACT #: documented in this encounterMercy Health [facility]09-20-2023 History of Present illness [...] healthy appearing mucosa. This was traversed. The lpoon-ka-kzutapu limb was characterized by healthy appearing mucosa. [...] YELLOW YELLOW APPEARANCE, URINE CLEAR CLEAR Specific [place], Urine 1.010 - 1.025 1.020 PH URINE [...] 5.98 ) Wt 83.5 kg (184 lb) [facility] 08/19/2020 SpO2 98% BMI 29.71 kg/m General [...] Moderate Deacon Kat MD documented in this encounterMercy Health [facility]09-20-2023 [facility] Miscellaneous Notes* Telephone Encounter - [...] on Haroon Seay APRN.CNP documented in this encounterMercy Health [facility] Center09-18-2023 Emergency department Note * Dayanara Montana RN - 11/02/2022 11:55 AM EDT Pt states that her pain is getting worse along with her nausea [facility]09-18-2023 Emergency department Note* Dayanara Montana RN [...] Walker MD 11/02/22 [address] [facility]* Dayanara Montana RN - 11/02/2022 11:44 AM EDT Pt requesting to use the restroom and wants assistance. Stand by assist given pt walk with a slow steady gait at this time without difficulty [facility]09-18-2023 Physician Emergency department Note* Dimitri Walker [...] bypass surgeon. Dimitri Walker MD 11/02/[address] [facility]09-16-2023 Hospital Discharge instructions* Discharge Instructions* Jalyn [...] sent through Care Everywhere. * Back: Strain (Djiboutian) [facility] 09-11-[address] [place], [place] [address]09-10-2023 History of Past illness Narrative* Problem Noted [...] of this encounter (statuses as of 10/28/2022) [facility]09[facility]10-20[facility] History of Past illness [...] of this encounter (statuses as of 11/03/2022) [facility] History of Past illness [...] of this encounter (statuses as of 11/03/2022) [facility] History of Past illness [...] of this encounter (statuses as of 11/03/2022) [facility]20[facility] History of Past illness [...] of this encounter (statuses as of 11/03/2022) [facility] History of Past illness [...] of this encounter (statuses as of 11/04/2022) [facility] History of Past illness [...] of this encounter (statuses as of 11/04/2022) [facility] History of Past illness [...] of this encounter (statuses as of 11/05/2022) [facility] History of Past illness [...] of this encounter (statuses as of 11/05/2022) [facility]20[facility] History of Past illness [...] of this encounter (statuses as of 11/06/2022) [facility] History of Past illness [...] of this encounter (statuses as of 11/06/2022) [facility] History of Past illness [...] of this encounter (statuses as of 11/10/2022) [facility]09-10-[facility]23 [id number] Miscellaneous Notes* Telephone Encounter - Li Kimball [...] nausea vomiting and pain return call to [phone] documented in this encounterMercy Health Springfield [facility] Center09-05-2023 Hospital Discharge instructions Patient [...] medicines. These include steroids, antibiotics, and some vocm-fvs-afyfywy medicines, such as aspirin or ibuprofen. Having [...] Follow these instructions at home: Medicines Take qvge-bem-khqkmgn and prescription medicines only as told by [...] provider. Document Revised: 06/07/2021 Document Reviewed: 06/07/2021 [employer] Patient Education 2022 [employer]. 10/20/2022 12:40:07 Abdominal Pain, Adult Abdominal Pain, [...] Follow these instructions at home: Medicines Take dfwc-uwh-rvlwbtk and prescription medicines only as told by [...] Watch your condition for any changes. Take ubpr-zdt-xjupyuv and prescription medicines only as told by [...] provider. Document Revised: 03/22/2020 Document Reviewed: 06/12/2019 [employer] Patient Education 2022 [employer]. Follow Up Care 10/20/2022 08:06:19 With:Jaquan Morrow Address: [address] [place] [phone]- Business (1) When:10/23/2022 12:06:27 [facility]09-04-2023 Evaluation + Plan noteExtracted from: Title:ED Note Author:Earnest Jett DO Date:10/19 Abdominal pain (R10.9: Unspe cified abdominal pain) Ordered: acetaminophen-oxycodone, 1 tab(s), Oral, q6hr for 3 day(s), 10 tab(s), Refill(s) 0, [facility]/pharmacy #[id number], 168, cm, 10/19/22 [...] nausea, # 10 tab(s), Refills(s) 0, Pharmacy: [facility]/pharmacy #[id number], 168, cm, 10/19/22 [...] QID, # 280 mL, Refills(s) 0, Pharmacy: [facility]/pharmacy #[id number], 168, cm, 10/19/22 8:44:00 EDT, Height/Length Dosing, 85.6, kg, 10/19/22 8:44:00 EDT, Weight Dosing Automated Diff Basic Metabolic Panel CBC w/ Auto Diff eGFR Extra Blue Tube Extra SST Tube Hepatic Function Panel Lipase Level TSH With T4fr Reflex UA With Cult Reflex XR Chest 2 Views Future Appointments Appointment Date:11/20/2022 02:40:00 PM Scheduled Provider: [facility] Appointment Type:FM Lab Draw Appointment Date:01/20/2023 10:00:00 AM Scheduled Provider:Nasim JOHNSON, Rajni Ballesteros Location:[facility] Appointment Type:URO Office Visit Future Scheduled Tests Laboratory* T3 Free 10/07/22 * Thyroid Stimulating Hormone 10/07/22 * Free T4 10/07/22 Radiology* US Renal 06/10/22 [facility]09-04-2023 Hospital Discharge instructions Follow Up Care 10/19/2022 08:31:02 With:Jon Rivera Address: [address] [place] [address], [facility] [address] [phone] [phone] Business (1) When:10/22/2022 13:40:06 With:Your GI physician Address:Unknown When:10/22/2022 13:40:01 With:Jaquan Morrow Address: [address] [place] [phone] Business (1) When:Within 3 Day(s) [facility]08-31-2023 Miscellaneous Notes* Telephone Encounter - [...] and advise. Grecia Wallace documented in this encounterMercy Health [facility] Center08-21-2023 NoteHNO ID: [id number] Author: Pablo Lebron PSYD Service: ? Author Type: Psychologist Type: Progress Notes Filed: 10/05/2022 3:51 PM Note Text: Assessment was conducted over the phone due to pt's technical difficulties. Patient is a resident of [place], and completed the assessment over the phone in [place]. Psychologist is licensed and stationed in [place]. Informed consent was discussed and verbal assent [...] Focused Psychotherapy, Supportive Therapy PROGRESS TO DATE: Custodial Progress: Stable Short Term Condition: Stable GOALS/OBJECTIVES/INTERVENTIONS: To identify and implement tools for effectively managing symptoms of anxiety, stress, and low mood. Approximately 45 minutes were spent with the patient doing therapy. Pablo Lebron [facility]08-21-2023 History of Present illness Narrative* Pablo Lebron Du, [facility] - 10/05/2022 3:07 PM EDT Assessment was conducted over the phone due to pt's technical difficulties. Patient is a resident of [place], and completed the assessment over the phone in [place]. Psychologist is licensed and stationed in [place]. Informed consent was discussed and verbal assent [...] and down dynamic with mom ( cassi birminghamer ). Hx of depression (three pregnancies); PTSD [...] Focused Psychotherapy, Supportive Therapy PROGRESS TO DATE: Prepared Foods Supervisor Progress: Stable Short Term Condition: Stable GOALS/OBJECTIVES/INTERVENTIONS: To identify and implement tools for effectively managing symptoms of anxiety, stress, and low mood. Approximately 45 minutes were spent with the patient doing therapy. Pablo Lebron PsyD documented in this encounterMercy Health Springfield [facility] Center08-14-2023 Instructions* Patient Instructions* Xiomara Martinez RD - [...] Fusion multivitamin soft chews and calcium citrate 4045-1731 mg/day(3 soft chews), and continue Probiotic drink [...] should last 30 minutes. 7. Aim for 0694-2829 calories and 75-100 gm carbs per day Nutrition Monitoring & Evaluation: Maintain BMI < 30 Need for Follow up: 4 months, for conversion anniversary - [phone] documented in this encounterMercy Health Springfield [facility] Center08-14-2023 History of Present illness Narrative* Xiomara Martinez RD - 09/28/2022 8:00 AM EDT [facility] Nutrition Therapy: Virtual Consult - Re-assessment I have communicated my name and active licensure. The patient s identity and physical location wereverified at the time of this visit. Either the patient or their legal branch sales and service representative has been informed of the risks [...] Fusion multivitamin soft chews and calcium citrate 8359-2180 mg/day(3 soft chews), and continue Probiotic drink [...] should last 30 minutes. 7. Aim for 0125-5581 calories and 75-100 gm carbs per day Nutrition Monitoring & Evaluation: Maintain BMI < 30 Need for Follow up: 4 months, for conversion anniversary - [phone] PROGRESS: Interval History: Patient presents for follow [...] the day. Recently started tracking intake on Crambu bre. Consistent, but likely insufficient protein intake. Following Phase 5 diet currently. 1219-7846 calories/day - meeting low-end needs 60-70 gm protein intake/day - falling below recommendations 60-90 oz fluid intake/day - meeting needs Taking all vitamin/minerals, however insufficient calcium citrate. Labs reviewed, unremarkable. Resting Metabolic Rate:1557 Energy needs for weight loss 5578-2712 (15-20 carina/kg current weight) Protein needs: 85 [...] Fusion One a Day multivitamin capsule PLUS 5148-2824 mg calcium citrate 5. Exercise: strive for [...] Garcia DATE: 09/28/2022 TIME: 7:48 AM PAGER: [phone] documented in this encounterMercy Health Springfield [facility] Center08-14-2023 NoteK[facility]08-08-2023 NoteK[facility]08-07-2023 NoteHNO ID: [id number] Author: Pablo Lebron PSYD Service: ? Author Type: Psychologist Type: Progress Notes Filed: 09/22/2022 12:47 PM Note Text: Assessment was conducted over the phone due to pt's technical difficulties. Patient is a resident of [place], and completed the assessment over the phone in [place]. Psychologist is licensed and stationed in [place]. Informed consent was discussed and verbal assent [...] importance of working outside house; balance). 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 Animosity from and mom (not enough time at home). Hurt by mom's words wants to communicate, she internalizes. Marital therapy? Appreciative of family help with kids. Sources of support (brother and nniabu-ln-gxp), close friend High anxiety and panic attacks [...] Focused Psychotherapy, Supportive Therapy PROGRESS TO DATE: Custodial Progress: Stable Short Term Condition: Stable GOALS/OBJECTIVES/INTERVENTIONS: To identify and implement tools for effectively managing symptoms of anxiety, stress, and low mood. Approximately 45 minutes were spent with the patient doing therapy. Pablo Lebron [facility]08-07-2023 History of Present illness Narrative* Pablo Lebron [facility] - 09/21/2022 2:04 PM EDT Assessment was conducted over the phone due to pt's technical difficulties. Patient is a resident of [place], and completed the assessment over the phone in [place]. Psychologist is licensed and stationed in [place]. Informed consent was discussed and verbal assent [...] importance of working outside house; balance). 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 Animosity from and mom (not enough time at home). Hurt by mom's words wants to communicate, she internalizes. Marital therapy? Appreciative of family help with kids. Sources of support (brother and eaobsm-sy-yhe), close friend High anxiety and panic attacks [...] Focused Psychotherapy, Supportive Therapy PROGRESS TO DATE: Custodial Progress: Stable Short Term Condition: Stable GOALS/OBJECTIVES/INTERVENTIONS: To identify and implement tools for effectively managing symptoms of anxiety, stress, and low mood. Approximately 45 minutes were spent with the patient doing therapy. Pablo Lebron PsyD documented in this encounterMercy Health Springfield [facility] Center08-04-2023 NoteKettering [facility]08-04-2023 History of Present illness Narrative* JarredBreanna APRN.RADIOCOMMUNICATIONS TECHNICIAN - 09/18/2022 3:14 PM EDT BMI SURGERY [...] Deacon Kat MD LAPAROSCOPIC ANTECOLIC ANTEGASTRIC GASTRECTOMY,PARTIAL,WITH ATN-EN-Y RECONSTRUCTION Visit: 7 months Today's Visit: Wt 83.5 kg (184 lb) BMI 29.7 kg/m2 BMI 29.70 kg/(m^2) Last Visit: Wt: 79.8 kg (176 lb) BMI: 28.41 kg/(m^2) Total weight loss: 11.3 kg (25 lb) Towner weight: 70.3 kg (154 lb 14.5 oz) Excess weight: 24.5 kg (54 lb 1.5 oz) % of excess body weight lost: 11.3 kg (25 lb) (46.22% of excess weight loss) COMPLICATIONS SINCE LAST VISIT?: NONE EGD 06/23/22 Findings: The examined esophagus was normal. 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 The gastrojejunal anastomosis was characterized by healthy appearing mucosa. This was traversed. The maowd-cy-kmuatas limb was characterized by healthy appearing mucosa. [...] 40 f bougie). This was traversed. The ofeiv-vf-yrusvlp limb was characterized by healthy appearing mucosa. [...] Level: 4 - Moderate documented in this encounterMercy Health [facility] Center08-04-2023 Nurse Note* Jayla Meza [...] Temperature: No Drains: No documented in this encounterMercy Health Springfield [facility] Medical Center06-22-2023 Miscellaneous Notes* Telephone Encounter - Linda Hale RN - 08/06/2022 10:40 AM EDT Thank you, patient notified. * Telephone Encounter - Kasie Avalos MD - 08/06/2022 10:08 AM EDT I agree with Linjuwans. I signed a prescription for 145mcg per day. Thank you, Kasie Avalos MD * Telephone Encounter - Linda Hale RN - 08/06/2022 8:27 AM EDT Looks like insurance denied the appeal for Motegrity. Linzess is pended if you agree with the dosing. Susan, Linda documented in this encounterMercy Health Springfield [facility] Center06-14-2023 Hospital Discharge instructions Follow Up Care 07/29/2022 09:18:39 With:Nasim JOHNSON, Rajni Ballesteros, URAlex, URO Address: [address], [place] [address]- [phone] When: Unknown [facility] 06-14-2023 Hospital Discharge instructions Patient Education 07/29/2022 [...] include: ?8 oz (237 mL) of milk, iwcpngv-pjimnzzvzqol-tpife milk, and calcium- fortifiedfruit juice. Calcium-fortified means [...] ?Spinach (cooked), rhubarb, beets, sweet potatoes, and Swazi chard. ?Peanuts. ?Potato chips, maori fries, and baked potatoes with skin on. ?Nuts and nut products. ?Chocolate. If you regularly take a diuretic medicine, make sure to eat at least 1 or 2 servings of fruits or vegetables that are high in potassium each day. These include: ?Avocado. ?Banana. ?Guild, prune, carrot, or tomato juice. ?Baked potato. [...] magnesium, fish oil, or vitamin B6. Take yctw-eye-dghkhdt and prescription medicines only as told by [...] Casseroles. Pizza. Lasagna. Frozen meals. Potato chips. Turkmen fries. The items listed above may not [...] provider. Document Revised: 10/13/2021 Document Reviewed: 10/13/2021 [employer] Patient Education 2022 [employer]. Follow Up Care 06/30/2022 09:39:02 With:Nasim JOHNSON, LILIAN LamarL, URO Address: When: Unknown [facility] 06-13-2023 Instructions* Patient Instructions* Samara [...] blistering or peeling skin. documented in this encounterMercy Health Springfield [facility] Medical Center06-13-2023 History of Present illness [...] Past Histories independently gathered by the clinical computer support technician, and the remaining scribed note accurately describes [...] visit. Samara Evans MD documented in this encounterMercy Health Springfield [facility] Medical Center06-08-2023 Miscellaneous Notes* Telephone Encounter [...] denying Motegr[employer] authorization Full letter scanned in [facility] for review Grecia Wallace * Telephone Encounter [...] RN * Telephone Encounter - Grecia Velasquez [facility] - 07/23/2022 8:49 AM EDT Fax received from [facility] to notify Motegrity not covered, will need PA or prescribe alternative: Linzess, Trulance or Amitza Fax scanned in [facility] Grecia Velasquez [facility] Electronically signed by Grecia Velasquez [facility] at 07/23/2022 8:52 AM EDT documented in this encounterMercy Health Springfield [facility] Medical Center06-07-2023 History of Present illness [...] with cornea provider or optom- closer to [place] - Will sendmessage Return precautions were discussed in detail Plan reviewed with the patient who verbalizes understanding Donnie David MD Ophthalmology Resident documented in this encounterMercy Health Springfield Regional Medical Center06-07-2023 History of Present illness [...] lesion. Mild degenerative changes. Lower thorax: Unremarkable. Gasoline Tractor Operator (topogram) images: No additional findings. CT ABD/PEL [...] Tissues: No acute abnormality. Lower thorax: Unremarkable. Gasoline Tractor Operator (topogram) images: No additional findings. US ABD [...] healthy appearing mucosa. This was traversed. The iivtn-rb-yvywztq limb was characterized by healthy appearing mucosa. [...] 40 f bougie). This was traversed. The cknzs-st-rvugutv limb was characterized by healthy appearing mucosa. [...] ceroid-laden histiocytes. There is no interface activity. Pechanga bile duct branches are identified in nearly [...] MD July 22, 2022 documented in this encounterMercy Health Springfield [facility] Center05-06-2023 History of Past illness [...] of this encounter (statuses as of 07/22/2022) [facility]05-[facility] History of Past illness [...] of this encounter (statuses as of 07/22/2022) [facility] History of Past illness [...] of this encounter (statuses as of 07/23/2022) [facility] History of Past illness [...] of this encounter (statuses as of 07/23/2022) [facility] History of Past illness [...] of this encounter (statuses as of 08/03/2022) [facility] History of Past illness [...] of this encounter (statuses as of 08/06/2022) [facility] History of Past illness [...] of this encounter (statuses as of 09/19/2022) [facility] History of Past illness [...] of this encounter (statuses as of 09/22/2022) [facility] History of Past illness [...] of this encounter (statuses as of 09/28/2022) [facility] History of Past illness [...] of this encounter (statuses as of 10/06/2022) [facility] History of Past illness [...] of this encounter (statuses as of 10/15/2022) [facility] History of Past illness [...] of this encounter (statuses as of 10/21/2022) [facility] History of Past illness [...] of this encounter (statuses as of 12/21/2022) [facility]05-[facility] History of Present illness [...] advised she may send a message on pSivida if she has any additional questions. Aliyah Washburn PA-C Orthopaedic & Rheumatologic [facility] Date: June 18, 2022 Time: [...] No Swollen Glands: No documented in this encounterMercy Health Springfield [facility] Medical Center04-28-2023 History of Present illness Narrative* Aliyah Washburn PA-C - 06/12/2022 10:26 AM EDT Images from the original note were not included. Rheumatology Outpatient Clinic Date of Service: 06/12/2022 Patient: Abbey Garcia Medical Record: [id number] Primary Care Physician: Wally Foley MD Last Rhe[facility] visit: [facility] Referring Provider: HENNY Marcus [address] [place] [address] Consultation requested by Agustin Valentino for an [...] hypothyroidism. Reports she has not seen her farrowing worker recently. She reports symptoms are interrupted by [...] 2 Antichromatin nega <0.2 RF negative <10 HEAVY FORGER HELPER 0.3 SSA <0.2 SSB <0.2 Mc <0.2 [...] symmetric on resisted finger separation and hand embedded systems designer Knees FROM Ankles FROM No MTP squeeze [...] insufficiency and hypothyroidism. She has not seen farrowing worker. Would like to rule out endocrine causes [...] which included preparing to see the patient, cvxe-gn-erwv patient care, completing clinical documentation, obtaining and/or reviewing separately obtained history, performing a medically appropriate examination, counseling and educating the pat ient/family/caregiver, and ordering medications, tests, or procedures. Aliyah Washburn PA-C [facility] Date: June 12, 2022 Time: 10:26 AM documented in this encounterMercy Health Springfield [facility] Medical Center04-26-2023 Hospital Discharge instructions Patient [...] you until you feel stable. Medicines Take papf-ulx-uiviztn and prescription medicines only as told by [...] right away. Call your local emergency services (318 in the [place] Do not drive yourself [...] provider. Document Revised: 06/12/2021 Document Reviewed: 06/12/2021 [employer] Patient Education 2022 [employer]. 06/10/2022 17:05:57 Nonspecific Chest Pain, Adult Nonspecific [...] Follow these instructions at home: Medicines Take atss-iju-gjztphx and prescription medicines only as told by [...] provider. Document Revised: 04/17/2021 Document Reviewed: 04/17/2021 [employer] Patient Education 2022 [employer]. Follow Up Care 06/10/2022 12:31:10 With:Chetna Jack Address: [address] [place] [phone] Business (1) When:06/13/2022 17:03:30 Comments:Schedule event loop recorder as well as echocardiogram with central scheduling and then follow-up with human resource management instructor Dr. Jack With:Jaquan Morrow Address: [address] [place] [phone] Business (1) When:06/13/2022 17:03:46 Comments:Call the office [...] you develop any new or worsening symptoms. [facility]01-20-2023 Nurse Note* Eli Carter RN [...] None REFERRAL (RECOMMENDATION): None documented in this encounterMercy Health Springfield Regional Medical Center01-19-2023 Miscellaneous Notes* Telephone Encounter - Victor M Dennis - 03/05/2022 11:54 AM EST Spoke with the patient confirmed 1:45 arrival time for 2:45 appointment at [facility]. Victor M Dennis * Telephone Encounter - Li Kimball RN - 03/05/2022 10:31 AM EST I called patient and left a message with EGD appointment instructions and location. Call back number provided. Li Kimball RN documented in this encounterMer[facility]01-19-2023 Instructions* Patient Instructions* Breanna Stern APRN.CNP - 03/05/2022 10:18 AM EST I have asked scheduling to add you on for an appointment in 2 months for your regular follow up, we'll check your labs at that time. (I've ordered them, no need to fast) We may need to see you sooner based on results of your EGD documented in this encounterMercy Health [facility]01-19-2023 History of Present illness [...] Total weight loss: 19.1 kg (42 lb) Towner weight: 70.3 kg (154 lb 14.5 oz) [...] Orders Breanna Stern APRN.BETH documented in this encounterMercy Health [facility] Center12-30-2022 History of Present illness [...] lateral patellar facet. Bilateral PF crepitance IMPRESSION: (S76.683C) Acetabular labrum tear, right, subsequent encounter (primary encounter diagnosis) PLAN: 1. Medication: None. 2. Test(s)/Imaging/Referral(s): None. 3. Intervention: Continue conservative treatment. Objectively, patients hip is doing well post op. She has been dealing with a right knee injury as well (images were uploaded in the system today). She saw a provider in the [place] area who recommended her have an osteotomy. 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 We discussed the option of seeing Dr. Gutierres for a second opinion as patient is eager to see someone through the [facility]. We will help [...] Past Histories independently gathered by the clinical computer support technician and the remaining scribed note accurately describes my personal service to the patient. Kuldip Yousif MD documented in this encounterMercy Health [facility] Center12-22-2022 Miscellaneous Notes* Telephone Encounter [...] nausea. Li Kimball RN documented in this encounterMercy Health Springfield [facility] Center12-21-2022 History of Present illness Narrative* Nahed Tamez RD - 02/04/2022 9:24 AM EST [facility] Nutrition Therapy: Virtual Consult [...] Fusion One a Day multivitamin capsule PLUS 6208-6591 mg calcium citrate daily) 4. Protein goal: 75-93 grams protein/day. 5. Fluid goal: 64oz per day water. (no calories, no caffeine, no carbonation, no alcohol) 6. Call the BMI department at [phone] to schedule your one month post op nutrition visit for February. Link to book as discussed: [email or web address].[facility].org/-/scassets/files/org/bariatric/guides/bmiguideboo [email or web address]?la=en Nutrition Monitoring & Evaluation: Adherence to [...] Fusion One a Day multivitamin capsule PLUS 2810-2468 mg calcium citrate 5. Exercise: strive for [...] Garcia DATE: 02/04/2022 TIME: 9:24 AM PAGER: [phone] documented in this encounterMercy Health [facility] Center12-20-2022 Instructions* Patient Instructions* Breanna [...] your activity as tolerated. documented in this encounterMercy Health Springfield [facility] Center12-20-2022 History of Present illness [...] Total weight loss: 15.4 kg (34 lb) Towner weight: 70.3 kg (154 lb 14.5 oz) [...] 1 month post op visit. Breanna Stern APRN.RADIOCOMMUNICATIONS TECHNICIAN documented in this encounterMercy Health Springfield [facility] Center12-20-2022 Nurse Note* Lucia Ramirez MA - 02/03/2022 2:53 PM EST What is the reason for your visit today? Follow up Who is your referring physician? Are you having poor oral intake? A little Have you had unintentional weight loss of 15 lbs/7 Kg in the last 3-6 months? NO Bowels: regular Wound: Temperature: No Drains: No documented in this encounterMercy Health [facility] Center12-20-2022 Miscellaneous Notes* Telephone Encounter [...] 02/03/2022. Li Kimball RN documented in this encounterMercy Health Springfield [facility] Center12-19-2022 Miscellaneous Notes* Telephone Encounter - Li Kimball RN - 02/02/2022 2:39 PM EST See 02/02/2022 MyChart encounter Li Kimball RN * Telephone Encounter - Olga Paul - 02/02/2022 8:46 AM EST Patient called in and will like a refill on pain medication. Patients pharmacy is the [facility] in [place]. Contact# [phone] documented in this encounterMercy Health Springfield [facility] Center12-14-2022 History and physical note [...] Bilateral arthroscopic knee surgery- was catcher in [email or web address] PAST SURGICAL HISTORY OF 08/2020 gastric sleeve [...] fevers. Neuro: No history of TIA's, stroke, EXCHANGE ENGINEER tumor, impaired sensorium, hemiplegia, paraplegia or quadraplegia. No neurological symptoms or problems. Respiratory: +RICHAR, asthma Negative for COPD, Current cough, Dyspnea, Home O2, Pneumonia within 6 weeks (date), Wheezing Cardiovascular: +hx HTN during /post , resolved. Negative for Recent [place], Angina, CAD, Chest Pain, CHF, DVT/PE GI: [...] 2022 TIME: 11:05 AM documented in this encounterMercy Health [facility] Center12-08-2022 Instructions* Patient Instructions* Ioana Hogan PA-C - 01/22/2022 11:55 AM EST PATIENT PREOPERATIVE INSTRUCTIONS Deacon Kat MD has scheduled you for your procedure at this surgery center: [facility]: [phone] --[id number] [address]. Please check in on the1st floor at [...] Procedures: - YOU MUST HAVE A RESPONSIBLE DIGITAL RETOUCHER TAKE YOU HOME. A LOW RAW SUGAR CUTTER OR COMMUNITY RELATIONS MANAGER CANNOT BE MADE A RESPONSIBLE DIGITAL RETOUCHER. - We recommend that a responsible person stays with you overnight to take care of you. - You cannot stay in a hotel alone after outpatient surgery. You will not be permitted to have yoursurgery, if you do not have someone to take care of you. If you already have an Advance Directive, please fax a copy to [phone] or email to for it to be [...] day. Ioana Hogan PA-C documented in this encounterMercy Health [facility] Center12-06-2022 Miscellaneous Notes* Telephone Encounter [...] provided. Li Kimball RN documented in this encounterMercy Health [facility] Center11-22-2022 Miscellaneous Notes* Telephone Encounter [...] questions. Li Kimball RN documented in this [facility]11-18-2022 Instructions* Patient Instructions* Sabina Joy APRN.BETH - 01/02/2022 11:29 AM EST Images from the original note were not included. Mutually Agreed Upon Goals Eating Plan: MyLensVectorness Pal BRE - Log intake 2 days [...] BRE for meditation - Mindful Moments by [facility]. [place]. Insight Timer https://Branded Reality.Puzzlium/health/mental-health/qhx-gihqdoefmn-cufuyb-android-ap ps#our-picks How can I fix my acid [...] but are usually stronger and faster than L2ftaclzbr. Dietary habits for acid reflux Reduce or [...] Try Breakfast: 1 scrambled egg (75 calories) Djiboutian muffin (67 calories) Calories per meal: 142 AM Snack & Fluids: *Spread out and sipped between meals 2 cups water (0 calories) 1 cup skim milk or unsweetened soy milk (90 calories) Calories per meal: 90 Lunch: 4 oz canned tuna in water (100 calories) 2 Tbsp fat free ortiz (20 calories) 1 slice low fat Swazi cheese (50 calories) 1 slice whole grain [...] after gastric sleeve surgery? (Full meal plan) (Level [employer]) .kml documented in this encounterMercy Health [facility] Center11-18-2022 History of Present illness [...] weight loss: 35 lbs or 14.58 % Towner weight: 70.3 kg (154 lb 14.5 oz) [...] fitting. LABS: Today: not needed. Sabina Joy APRN.BEHT I spent a total of 30 minutes on the date of the service which included preparing to see the patient, tdbg-vj-rgql patient care, completing clinical documentation, obtaining and/or reviewing separately obtained history, performing a medically appropriate examination, counseling and educating the pat ient/family/caregiver, independently interpreting results (not separately reported), and communicating results to the patient/family/caregiver. Follow up in 6 months. This visit was performed virtually due to the COVID-19 epidemic as an effort to protect patients and minimize exposure. documented in this encounterMercy Health [facility] Center11-17-2022 History of Present illness Narrative* Marisabel Lynn LPN - 01/01/2022 2:41 PM EST 2Name: Abbey Garcia [facility]#: [id number] Date: 01/01/2022 HUERTA 48 HR PH FOLLOW-UP The HUERTA monitor was received today via [employer] transport.. Test data from the lumber stacker was downloaded. Events from the patient diary were inserted into the study for physician review. .Marisabel Lynn LPN documented in this encounterMercy Health [facility] Center11-10-2022 History of Present illness Narrative* Marisabel Lynn LPN - 12/25/2021 11:28 AM EST Name: Abbey Garcia [facility]#: [id number] Date: 12/25/2021 48hr HUERTA PH CAPSULE PLACEMENT [...] hours. .Marisabel Lynn LPN documented in this encounterMercy Health [facility] Center11-10-2022 Nurse Note* Raegan Sood [...] RN In Department: GASTROENTEROLOGY documented in this encounterMercy Health Springfield [facility] Medical Center11-10-2022 History of Present illness Narrative* Mateusz Kraft, [...] Mateusz Kraft Research Coordinator documented in this encounterMercy Health [facility] Center10-05-2022 Miscellaneous Notes* Telephone Encounter - Li Kimball RN - 11/19/2021 10:57 AM EDT I called the patient and left a message for the patient to call [phone], option 0 to schedule the pH Impedence testing. Call back number provided for additional questions or concerns. Li Kimball RN documented in this encounterMercy Health Springfield [facility] Medical Center10-03-2022 History of Present illness [...] mcg, Iron 45-60 mg and calcium citrate 0700-3859 mg/day PHYSICAL EXAMINATION General appearance: Well appearing, [...] the date of the service which included hgab-ep-gplv patient care, completing clinical documentation, obtaining and/or reviewing separately obtained history, counseling and educating the patient/family/caregiver, and ordering medications, tests, or procedures. Deacon Kat MD documented in this encounterMercy Health [facility] Center10-03-2022 Miscellaneous Notes* Telephone Encounter - Grecia Wallace - 11/17/2021 11:21 AM EDT Pharmacy fax requesting refills as follows: Patient scheduled for follow up visit Dec 24 Requested Prescriptions Pending Prescriptions Disp Refills famotidine (PEPCID) 40 mg tablet 90 tablet 1 Sig: Take 1 tablet by mouth once daily. Please review and advise. Grecia Wallace documented in this encounterMercy Health [facility] Center09-06-2022 Miscellaneous Notes* Telephone Encounter [...] book slots. Cornel Conrad documented in this encounterMercy Health Springfield [facility] Center09-06-2022 Miscellaneous Notes* Telephone Encounter - Slime Crews - 10/21/2021 8:25 AM EDT Called patient to reschedule 10/[address] Yousif will be out of the office in the afternoon that day. Per Dr. Yousif, patient can be rescheduled at [facility] on 10/21 between 4:15-5:30 PM or on 10/22 in [place] between 4-6 PM. Do not double book slots. documented in this encounterMercy Health Springfield [facility] Center08-25-2022 Instructions* Patient Instructions* Sabina Joy APRN.CNP - 10/09/2021 3:56 PM EDT Images from the original note were not included. Mutually Agreed Upon Goals Eating Plan: Beisen Pal BRE - Log intake 7 days per week. Replace skipped meals with a protein supplement. Bariatric Plate Method Activity: Walking as tolerated. Chair exercises Sleep: No electronic for 30 minutes prior to sleep 2 nights per week. Practice Sleep Hygiene. CPAP nightly Stress: BRE for meditation - Mindful Moments by [facility] Wellness. Alan. Insight Timer https://www.[employer]rest [employer]/health/mental-health/qvm-rvbsjqieic-nhnmkm-android-ap ps#our-picks Steps to Follow Bariatric Plate Total [...] own fruit infused price >> lemon or wrangell with oranges, blackberries, strawberries and fresh mint, [...] with food. Calcium Citrate with Vitamin D 9289-6883 mg calcium - DO NOT TAKE WITH IRON OR MULTIVITAMIN Vitamin D3 - take 3,000 international unit(s) per day from all sources documented in this encounterMercy Health Springfield [facility] Medical Center08-25-2022 History of Present illness [...] Kat MD EGD WITH BIOPSY 04/16/2020 Deacon ePña MD LAPAROSCOPY WITH BIOPSY 03/20/2021 Deacon Kat MD LAPAROSCOPY DIAGNOSTIC Visit: 13 months Today's Visit: There were no vitals taken for this visit. BMI 31.96 kg/(m^2) Last Visit: Wt: 90.7 kg (200 lb) BMI: 32.28 kg/(m^2) Total weight loss: 42 lbs Towner weight: 70.3 kg (154 lb 14.5 oz) [...] which included preparing to see the patient, furv-qy-twqj patient care, completing clinical documentation, obtaining and/or reviewing separately obtained history, performing a medically appropriate examination, counseling and educating the pat ient/family/caregiver, ordering medications, tests, or procedures, independently interpreting results (not separately reported), and communicating results to the patient/family/caregiver. Medical Decision Making: Level: 1 - N/A Sabina Joy APRN.BETH documented in this encounterMercy Health [facility] Center07-16-2022 Hospital Discharge instructions* Discharge Instructions* Pablo Atwood DO - 08/30/2021 4:11 AM EDT Please take all medications as prescribed and follow-up with your oral surgeon on Wednesday as scheduled. * Attachments The following attachments cannot be sent through Care Everywhere. * Tooth: Abscessed (Djiboutian) documented in this encounterBON Perceivant Phone: [phone] 521-523707-15-2022 Miscellaneous Notes* Telephone Encounter - Justine Shabazz PA-C - 08/29/2021 2:55 PM EDT Pharmacy generated request, refill not appropriate. Justine Shabazz PA-C documented in this encounterMercy Health [facility] Center07-15-2022 Instructions* Patient Instructions* Justine [...] and carry free weights documented in this encounterMercy Health [facility] Center07-15-2022 History of Present illness Narrative* Justine Shabazz PA-C - 08/29/2021 2:16 PM EDT POST OP DISTANCE HEALTH VIRTUAL VISIT DOCUMENTATION NOTE This virtual visit was performed via video enabled technology, and the patient provided consent to be evaluated and managed using this virtual visit and video enabled technology. Distance Health Platform: Glympse Virtual Visit People present : Justine Shabazz [...] Nica Shabazz, MS, PA-C documented in this encounterMercy Health [facility] Center07-14-2022 Instructions* Patient Instructions* Xiomara [...] Fusion One a Day multivitamin capsule PLUS 6816-1270 mg calcium citrate 5. Exercise: strive for [...] or sooner if needed documented in this encounterMercy Health Springfield [facility] Medical Center07-14-2022 History of Present illness Narrative* Xiomara Martinez RD - 08/28/2021 7:54 AM EDT [facility] Nutrition Therapy: Virtual Consult [...] Fluids: water (64 oz), gatorade zero, Body Adamant light Exercise: limited to PT due to [...] Rate: 1635 Energy needs for weight loss 5936-6522 (15-20 carina/kg current weight) Protein needs: 75-93 [...] Fusion One a Day multivitamin capsule PLUS 1418-9265 mg calcium citrate 5. Exercise: strive for [...] by: Xiomara Martinez RD documented in this encounterMercy Health Springfield [facility] Medical Center07-08-2022 Evaluation note* Encounter Date Diagnosis Assessment Notes Treatment Notes Treatment Clinical Notes Aug, PTSD (post-traumatic stress disorder) (ICD-10 - F43.10) [facility] Other [id number] Miscellaneous Notes* Telephone Encounter - Grecia Wallace - 08/22/2021 10:40 AM EDT Pharmacy fax requesting refills as follows: patient has a follow up visit 09/24/21 Pending Prescriptions Disp Refills OMEPRAZOLE 40 MG CAPSULE,DELAYED RELEASE 60 capsule 0 Sig: Take 1 capsule by mouth twice daily. ELIJAH: No Please review and advise. Grecia Celestewestern [facility] documented in this encounterMercy Health [facility] Center07-03-2022 Evaluation note* Encounter Date [...] system will be more sensitive than normal. [facility] Other [id number] Miscellaneous Notes* Telephone Encounter - Justine Shabazz PA-C - 08/14/2021 2:51 PM EDT Pharmacy generated request, refill not appropriate. Justine Shabazz PA-C documented in this encounterMercy Health Springfield [facility] Medical Center06-17-2022 Instructions* Patient Instructions* Justine [...] leg backward) and letting your feet returns processor when standing or laying flat- until 3 [...] others. Follow-up: 4 weeks documented in this encounterMercy Health Springfield [facility] Medical Center06-17-2022 History of Present illness Narrative* Justine Shabazz PA-C - 08/01/2021 10:55 AM EDT POST OP DISTANCE HEALTH VIRTUAL VISIT DOCUMENTATION NOTE This virtual visit was performed via video enabled technology, and the patient provided consent to be evaluated and managed using this virtual visit and video enabled technology. Better Walk Health Platform: Glympse Virtual Visit People present : Justine Shabazz PA-C and Patient Time Spent for video encounter, record review and documentation: 15 minutes CHIEF COMPLAINT (CC): Post op right hip HISTORY OF PRESENT ILLNESS (HPI): 3 weeks s/p 1. right hip arthroscopy. 2. Acetabuloplasty CPT 55295 3. Labral repair. CPT 00558 4. Femoroplasty. CPT 09511 5. Capsular Closure DOS: 08/10/21 Denies systemic [...] will review MRI right knee (uploaded in [facility]). She has been referredto physician in [place] and was recommended to have osteotomy, she [...] leg backward) and letting your feet returns processor when standing or laying flat- until 3 [...] Justine Shabazz MS, PA-C documented in this encounterMercy Health Springfield [facility] Medical Center05-20-2022 History of Present illness Narrative* Justine Shabazz PA-C - 07/04/2021 10:59 AM EDT AMBULATORY TELEPHONE VISIT Abbey Sandra Garcia has consented to this telephone encounter. Persons Present: patient Chief Complaint/Reason: Pre op right hip HPI: 31 y/o female scheduled for right hip arthroscopy with Dr Yousif 07/10/21 at [facility]. Discussion to ensure optimized for surgery Data Reviewed: Procedure: verified - questions answered Consent: in [facility] - not signed Imaging: outside MR an XR in [facility] with report scanned - views sufficient PACC: completed 06/24/21 Brace fitting: completed Crutches: has a pair and able to use - instructed she can leave in car DOS Medical considerations - laparoscopic sleeve 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 - down 50 lb Anticoagulation medications: no Pharmacy/ scripts: [facility] - advised will be sent 07/09/21 [...] with Dr Yousif Post op RXs to [facility] 07/09/21 PT 07/11/21 Post op follow up 07/30/21 - ideally virtual Total Time Spent: 8 minutes Justine Shabazz PA-C documented in this encounterMercy Health Springfield [facility] Medical Center05-09-2022 History of Present illness [...] must be done in radiology at the [facility] to ensure correct views.) Brace fitting: Yes - ( hip brace fit with DJO Rep at [facility]) Pre op PT visit required for [...] up) No. Pre op instructions sent via pSivida. DONAVAN Douglas documented in this encounterMercy Health Springfield [facility] Medical Center05-04-2022 History of Present illness Narrative* Kuldip Yousif MD - 06/18/2021 11:00 AM EDT x * Kuldip Yousif MD - 06/18/2021 10:23 AM EDT Images from the original note were not included. DEPARTMENT OF ORTHOPAEDICS Consultation as a request of Shanna June, ZEYAD [address] [facility] [id number] Chief Complaint: Right hip pain HISTORY OF [...] Bilateral arthroscopic knee surgery- was catcher in [facility] LINE INSERT/CONSULT 12/24/2020 VAGINAL DELIVERY AFTER [...] No history of dysuria, frequency or incontinence BIOLOGY FACULTY MEMBER: Negative for abnormal vaginal bleeding, abnormal vaginal [...] presence of Kuldip Yousif M.D. Electronically Signed:Jace Duarte, AT, June 18, 2021 10:23 AM I agree with the Chief Complaint, ROS, and Past Histories independently gathered by the clinical computer support technician and the remaining scribed note accurately describes my personal service to the patient. Kuldip Yousif MD documented in this encounterMercy Health Springfield [facility] Medical Center04-18-2022 History of Present illness [...] time. documented in this encounterOSU [facility] Evaluation note * Encounter Date Diagnosis Assessment [...] intake. Mar, Other Asthma material was printed [facility] Other 12-14-2021 Evaluation note* Encounter Date Diagnosis [...] to be seen. Also always know the [facility] Emergency Number is 24 hours [...] surgeon after discussing options and treatment locations. [facility] Other [id number] History of Past illness Narrative* Problem Noted Date Resolved Date Obesity 09/03/2020 11/29/2020 Abdominal pain 02/01/2020 04/08/2020 Moderate episode of recurrent major depressive d isorder 11/21/2019 01/03/2020 Obesity, Class II, BMI 35-39.9 10/13/2019 1 Last Assessment & Plan: Assessment: BMI 38.74 documented as of this encounter (statuses as of 06/18/2021) [facility]07-20-[facility] History of Past illness Narrative* Problem Noted Date Resolved Date Obesity 09/03/2020 11/29/2020 Abdominal pain 02/01/2020 04/08/2020 Moderate episode of recurrent major depressive d isorder 11/21/2019 01/03/2020 Obesity, Class II, BMI 35-39.9 10/13/2019 1 Last Assessment & Plan: Assessment: BMI 38.74 documented as of this encounter (statuses as of 06/23/2021) [facility]07-20-[facility] History of Past illness Narrative* Problem Noted Date Resolved Date Obesity 09/03/2020 11/29/2020 Abdominal pain 02/01/2020 04/08/2020 Moderate episode of recurrent major depressive d isorder 11/21/2019 01/03/2020 Obesity, Class II, BMI 35-39.9 10/13/2019 1 Last Assessment & Plan: Assessment: BMI 38.74 documented as of this encounter (statuses as of 07/09/2021) [facility]07-[facility] History of Past illness Narrative* Problem Noted Date Resolved Date Obesity 09/03/2020 11/29/2020 Abdominal pain 02/01/2020 04/08/2020 Moderate episode of recurrent major depressive d isorder 11/21/2019 01/03/2020 Obesity, Class II, BMI 35-39.9 10/13/2019 1 Last Assessment & Plan: Assessment: BMI 38.74 documented as of this encounter (statuses as of 07/15/2021) [facility] History of Past illness Narrative* Problem Noted Date Resolved Date Obesity 09/03/2020 11/29/2020 Abdominal pain 02/01/2020 04/08/2020 Moderate episode of recurrent major depressive d isorder 11/21/2019 01/03/2020 Obesity, Class II, BMI 35-39.9 10/13/2019 1 Last Assessment & Plan: Assessment: BMI 38.74 documented as of this encounter (statuses as of 07/28/2021) [address]20-2021 History of Past illness Narrative* Problem Noted Date Resolved Date Obesity 09/03/2020 11/29/2020 Abdominal pain 02/01/2020 04/08/2020 Moderate episode of recurrent major depressive d isorder 11/21/2019 01/03/2020 Obesity, Class II, BMI 35-39.9 10/13/2019 1 Last Assessment & Plan: Assessment: BMI 38.74 documented as of this encounter (statuses as of 08/01/2021) [facility] History of Past illness Narrative* Problem Noted Date Resolved Date Obesity 09/03/2020 11/29/2020 Abdominal pain 02/01/2020 04/08/2020 Moderate episode of recurrent major depressive d isorder 11/21/2019 01/03/2020 Obesity, Class II, BMI 35-39.9 10/13/2019 1 Last Assessment & Plan: Assessment: BMI 38.74 documented as of this encounter (statuses as of 08/14/2021) [facility]07-20-2021 History of Past illness Narrative* Problem Noted Date Resolved Date Obesity 09/03/2020 11/29/2020 Abdominal pain 02/01/2020 04/08/2020 Moderate episode of recurrent major depressive d isorder 11/21/2019 01/03/2020 Obesity, Class II, BMI 35-39.9 10/13/2019 1 Last Assessment & Plan: Assessment: BMI 38.74 documented as of this encounter (statuses as of 08/22/2021) [facility]07-20-2021 History of Past illness Narrative* Problem Noted Date Resolved Date Obesity 09/03/2020 11/29/2020 Abdominal pain 02/01/2020 04/08/2020 Moderate episode of recurrent major depressive d isorder 11/21/2019 01/03/2020 Obesity, Class II, BMI 35-39.9 10/13/2019 1 Last Assessment & Plan: Assessment: BMI 38.74 documented as of this encounter (statuses as of 08/28/2021) [address]20-2021 History of Past illness Narrative* Problem Noted Date Resolved Date Obesity 09/03/2020 11/29/2020 Abdominal pain 02/01/2020 04/08/2020 Moderate episode of recurrent major depressive d isorder 11/21/2019 01/03/2020 Obesity, Class II, BMI 35-39.9 10/13/2019 1 Last Assessment & Plan: Assessment: BMI 38.74 documented as of this encounter (statuses as of 08/29/2021) [facility]07-20-2021 History of Past illness Narrative* Problem Noted Date Resolved Date Obesity 09/03/2020 11/29/2020 Abdominal pain 02/01/2020 04/08/2020 Moderate episode of recurrent major depressive d isorder 11/21/2019 01/03/2020 Obesity, Class II, BMI 35-39.9 10/13/2019 1 Last Assessment & Plan: Assessment: BMI 38.74 documented as of this encounter (statuses as of 08/29/2021) [address]20-2021 History of Past illness Narrative* Problem Noted Date Resolved Date Obesity 09/03/2020 11/29/2020 Abdominal pain 02/01/2020 04/08/2020 Moderate episode of recurrent major depressive d isorder 11/21/2019 01/03/2020 Obesity, Class II, BMI 35-39.9 10/13/2019 1 Last Assessment & Plan: Assessment: BMI 38.74 documented as of this encounter (statuses as of 09/02/2021) [address]20-2021 History of Past illness Narrative* Problem Noted Date Resolved Date Obesity 09/03/2020 11/29/2020 Abdominal pain 02/01/2020 04/08/2020 Moderate episode of recurrent major depressive d isorder 11/21/2019 01/03/2020 Obesity, Class II, BMI 35-39.9 10/13/2019 1 Last Assessment & Plan: Assessment: BMI 38.74 documented as of this encounter (statuses as of 10/09/2021) [address]20-2021 History of Past illness Narrative* Problem Noted Date Resolved Date Obesity 09/03/2020 11/29/2020 Abdominal pain 02/01/2020 04/08/2020 Moderate episode of recurrent major depressive d isorder 11/21/2019 01/03/2020 Obesity, Class II, BMI 35-39.9 10/13/2019 1 Last Assessment & Plan: Assessment: BMI 38.74 documented as of this encounter (statuses as of 10/09/2021) [facility]07-20-2021 History of Past illness Narrative* Problem Noted Date Resolved Date Obesity 09/03/2020 11/29/2020 Abdominal pain 02/01/2020 04/08/2020 Moderate episode of recurrent major depressive d isorder 11/21/2019 01/03/2020 Obesity, Class II, BMI 35-39.9 10/13/2019 1 Last Assessment & Plan: Assessment: BMI 38.74 documented as of this encounter (statuses as of 10/21/2021) [address]20-2021 History of Past illness Narrative* Problem Noted Date Resolved Date Obesity 09/03/2020 11/29/2020 Abdominal pain 02/01/2020 04/08/2020 Moderate episode of recurrent major depressive d isorder 11/21/2019 01/03/2020 Obesity, Class II, BMI 35-39.9 10/13/2019 1 Last Assessment & Plan: Assessment: BMI 38.74 documented as of this encounter (statuses as of 11/18/2021) [facility]07-20-2021 History of Past illness Narrative* Problem Noted Date Resolved Date Obesity 09/03/2020 11/29/2020 Abdominal pain 02/01/2020 04/08/2020 Moderate episode of recurrent major depressive d isorder 11/21/2019 01/03/2020 Obesity, Class II, BMI 35-39.9 10/13/2019 1 Last Assessment & Plan: Assessment: BMI 38.74 documented as of this encounter (statuses as of 11/18/2021) [facility]07-20-2021 History of Past illness Narrative* Problem Noted Date Resolved Date Obesity 09/03/2020 11/29/2020 Abdominal pain 02/01/2020 04/08/2020 Moderate episode of recurrent major depressive d isorder 11/21/2019 01/03/2020 Obesity, Class II, BMI 35-39.9 10/13/2019 1 Last Assessment & Plan: Assessment: BMI 38.74 documented as of this encounter (statuses as of 11/19/2021) [facility]07-20-2021 History of Past illness Narrative* Problem Noted Date Resolved Date Obesity 09/03/2020 11/29/2020 Abdominal pain 02/01/2020 04/08/2020 Moderate episode of recurrent major depressive d isorder 11/21/2019 01/03/2020 Obesity, Class II, BMI 35-39.9 10/13/2019 1 Last Assessment & Plan: Assessment: BMI 38.74 documented as of this encounter (statuses as of 11/19/2021) [facility]07-20-2021 History of Past illness Narrative* Problem Noted Date Resolved Date Obesity 09/03/2020 11/29/2020 Abdominal pain 02/01/2020 04/08/2020 Moderate episode of recurrent major depressive d isorder 11/21/2019 01/03/2020 Obesity, Class II, BMI 35-39.9 10/13/2019 1 Last Assessment & Plan: Assessment: BMI 38.74 documented as of this encounter (statuses as of 12/17/2021) [facility]07-20-2021 History of Past illness Narrative* Problem Noted Date Resolved Date Obesity 09/03/2020 11/29/2020 Abdominal pain 02/01/2020 04/08/2020 Moderate episode of recurrent major depressive d isorder 11/21/2019 01/03/2020 Obesity, Class II, BMI 35-39.9 10/13/2019 1 Last Assessment & Plan: Assessment: BMI 38.74 documented as of this encounter (statuses as of 12/25/2021) [facility]07-20-2021 History of Past illness Narrative* Problem Noted Date Resolved Date Obesity 09/03/2020 11/29/2020 Abdominal pain 02/01/2020 04/08/2020 Moderate episode of recurrent major depressive d isorder 11/21/2019 01/03/2020 Obesity, Class II, BMI 35-39.9 10/13/2019 1 Last Assessment & Plan: Assessment: BMI 38.74 documented as of this encounter (statuses as of 12/25/2021) [facility]07-20-2021 History of Past illness Narrative* Problem Noted Date Resolved Date Obesity 09/03/2020 11/29/2020 Abdominal pain 02/01/2020 04/08/2020 Moderate episode of recurrent major depressive d isorder 11/21/2019 01/03/2020 Obesity, Class II, BMI 35-39.9 10/13/2019 1 Last Assessment & Plan: Assessment: BMI 38.74 documented as of this encounter (statuses as of 12/25/2021) [facility]07-20-2021 History of Past illness Narrative* Problem Noted Date Resolved Date Obesity 09/03/2020 11/29/2020 Abdominal pain 02/01/2020 04/08/2020 Moderate episode of recurrent major depressive d isorder 11/21/2019 01/03/2020 Obesity, Class II, BMI 35-39.9 10/13/2019 1 Last Assessment & Plan: Assessment: BMI 38.74 documented as of this encounter (statuses as of 12/26/2021) [facility]07-20-2021 History of Past illness Narrative* Problem Noted Date Resolved Date Obesity 09/03/2020 11/29/2020 Abdominal pain 02/01/2020 04/08/2020 Moderate episode of recurrent major depressive d isorder 11/21/2019 01/03/2020 Obesity, Class II, BMI 35-39.9 10/13/2019 1 Last Assessment & Plan: Assessment: BMI 38.74 documented as of this encounter (statuses as of 01/01/2022) [facility]07-20-2021 History of Past illness Narrative* Problem Noted Date Resolved Date Obesity 09/03/2020 11/29/2020 Abdominal pain 02/01/2020 04/08/2020 Moderate episode of recurrent major depressive d isorder 11/21/2019 01/03/2020 Obesity, Class II, BMI 35-39.9 10/13/2019 1 Last Assessment & Plan: Assessment: BMI 38.74 documented as of this encounter (statuses as of 01/02/2022) [facility]07-20-2021 History of Past illness Narrative* Problem Noted Date Resolved Date Obesity 09/03/2020 11/29/2020 Abdominal pain 02/01/2020 04/08/2020 Moderate episode of recurrent major depressive d isorder 11/21/2019 01/03/2020 Obesity, Class II, BMI 35-39.9 10/13/2019 1 Last Assessment & Plan: Assessment: BMI 38.74 documented as of this encounter (statuses as of 01/06/2022) [facility]07-20-2021 History of Past illness Narrative* Problem Noted Date Resolved Date Obesity 09/03/2020 11/29/2020 Abdominal pain 02/01/2020 04/08/2020 Moderate episode of recurrent major depressive d isorder 11/21/2019 01/03/2020 Obesity, Class II, BMI 35-39.9 10/13/2019 1 Last Assessment & Plan: Assessment: BMI 38.74 documented as of this encounter (statuses as of 01/20/2022) [facility]07-20-2021 History of Past illness Narrative* Problem Noted Date Resolved Date Obesity 09/03/2020 11/29/2020 Abdominal pain 02/01/2020 04/08/2020 Moderate episode of recurrent major depressive d isorder 11/21/2019 01/03/2020 Obesity, Class II, BMI 35-39.9 10/13/2019 1 Last Assessment & Plan: Assessment: BMI 38.74 documented as of this encounter (statuses as of 01/28/2022) [facility]07-20-2021 History of Past illness Narrative* Problem Noted Date Resolved Date Obesity 09/03/2020 11/29/2020 Abdominal pain 02/01/2020 04/08/2020 Moderate episode of recurrent major depressive d isorder 11/21/2019 01/03/2020 Obesity, Class II, BMI 35-39.9 10/13/2019 1 Last Assessment & Plan: Assessment: BMI 38.74 documented as of this encounter (statuses as of 02/02/2022) [facility]07-20-2021 History of Past illness Narrative* Problem Noted Date Resolved Date Obesity 09/03/2020 11/29/2020 Abdominal pain 02/01/2020 04/08/2020 Moderate episode of recurrent major depressive d isorder 11/21/2019 01/03/2020 Obesity, Class II, BMI 35-39.9 10/13/2019 1 Last Assessment & Plan: Assessment: BMI 38.74 documented as of this encounter (statuses as of 02/02/2022) [facility]07-20-2021 History of Past illness Narrative* Problem Noted Date Resolved Date Obesity 09/03/2020 11/29/2020 Abdominal pain 02/01/2020 04/08/2020 Moderate episode of recurrent major depressive d isorder 11/21/2019 01/03/2020 Obesity, Class II, BMI 35-39.9 10/13/2019 1 Last Assessment & Plan: Assessment: BMI 38.74 documented as of this encounter (statuses as of 02/03/2022) [facility]07-20-2021 History of Past illness Narrative* Problem Noted Date Resolved Date Obesity 09/03/2020 11/29/2020 Abdominal pain 02/01/2020 04/08/2020 Moderate episode of recurrent major depressive d isorder 11/21/2019 01/03/2020 Obesity, Class II, BMI 35-39.9 10/13/2019 1 Last Assessment & Plan: Assessment: BMI 38.74 documented as of this encounter (statuses as of 02/03/2022) [facility]07-20-2021 History of Past illness Narrative* Problem Noted Date Resolved Date Obesity 09/03/2020 11/29/2020 Abdominal pain 02/01/2020 04/08/2020 Moderate episode of recurrent major depressive d isorder 11/21/2019 01/03/2020 Obesity, Class II, BMI 35-39.9 10/13/2019 1 Last Assessment & Plan: Assessment: BMI 38.74 documented as of this encounter (statuses as of 02/04/2022) [facility]07-20-2021 History of Past illness Narrative* Problem Noted Date Resolved Date Obesity 09/03/2020 11/29/2020 Abdominal pain 02/01/2020 04/08/2020 Moderate episode of recurrent major depressive d isorder 11/21/2019 01/03/2020 Obesity, Class II, BMI 35-39.9 10/13/2019 1 Last Assessment & Plan: Assessment: BMI 38.74 documented as of this encounter (statuses as of 02/06/2022) [facility]07-20-2021 History of Past illness Narrative* Problem Noted Date Resolved Date Obesity 09/03/2020 11/29/2020 Abdominal pain 02/01/2020 04/08/2020 Moderate episode of recurrent major depressive d isorder 11/21/2019 01/03/2020 Obesity, Class II, BMI 35-39.9 10/13/2019 1 Last Assessment & Plan: Assessment: BMI 38.74 documented as of this encounter (statuses as of 02/15/2022) [address]20-2021 History of Past illness Narrative* Problem Noted Date Resolved Date Obesity 09/03/2020 11/29/2020 Abdominal pain 02/01/2020 04/08/2020 Moderate episode of recurrent major depressive d isorder 11/21/2019 01/03/2020 Obesity, Class II, BMI 35-39.9 10/13/2019 1 Last Assessment & Plan: Assessment: BMI 38.74 documented as of this encounter (statuses as of 02/18/2022) [facility]07-20-2021 History of Past illness Narrative* Problem Noted Date Resolved Date Obesity 09/03/2020 11/29/2020 Abdominal pain 02/01/2020 04/08/2020 Moderate episode of recurrent major depressive d isorder 11/21/2019 01/03/2020 Obesity, Class II, BMI 35-39.9 10/13/2019 1 Last Assessment & Plan: Assessment: BMI 38.74 documented as of this encounter (statuses as of 03/05/2022) [address]20-2021 History of Past illness Narrative* Problem Noted Date Resolved Date Obesity 09/03/2020 11/29/2020 Abdominal pain 02/01/2020 04/08/2020 Moderate episode of recurrent major depressive d isorder 11/21/2019 01/03/2020 Obesity, Class II, BMI 35-39.9 10/13/2019 1 Last Assessment & Plan: Assessment: BMI 38.74 documented as of this encounter (statuses as of 03/05/2022) [facility]07-20-2021 History of Past illness Narrative* Problem Noted Date Resolved Date Obesity 09/03/2020 11/29/2020 Abdominal pain 02/01/2020 04/08/2020 Moderate episode of recurrent major depressive d isorder 11/21/2019 01/03/2020 Obesity, Class II, BMI 35-39.9 10/13/2019 1 Last Assessment & Plan: Assessment: BMI 38.74 documented as of this encounter (statuses as of 03/07/2022) [address]20-2021 History of Past illness Narrative* Problem Noted Date Resolved Date Obesity 09/03/2020 11/29/2020 Abdominal pain 02/01/2020 04/08/2020 Moderate episode of recurrent major depressive d isorder 11/21/2019 01/03/2020 Obesity, Class II, BMI 35-39.9 10/13/2019 1 Last Assessment & Plan: Assessment: BMI 38.74 documented as of this encounter (statuses as of 03/30/2022) [facility]07-20-2021 History of Past illness Narrative* Problem Noted Date Resolved Date Obesity 09/03/2020 11/29/2020 Abdominal pain 02/01/2020 04/08/2020 Moderate episode of recurrent major depressive d isorder 11/21/2019 01/03/2020 Obesity, Class II, BMI 35-39.9 10/13/2019 1 Last Assessment & Plan: Assessment: BMI 38.74 documented as of this encounter (statuses as of 06/14/2022) [address]20-2021 History of Past illness Narrative* Problem Noted Date Resolved Date Obesity 09/03/2020 11/29/2020 Abdominal pain 02/01/2020 04/08/2020 Moderate episode of recurrent major depressive d isorder 11/21/2019 01/03/2020 Obesity, Class II, BMI 35-39.9 10/13/2019 1 Last Assessment & Plan: Assessment: BMI 38.74 documented as of this encounter (statuses as of 06/18/2022) [facility]05-18-2021 Emergency department Note* Nabila [...] 07/02/2020 2:36 PM EDT Emergency Department Report [facility] EMERGENCY DEPARTMENT Service Date:.07/02/20 PCP: [...] Social Gatherings with Friends and Family: Attends Christian Services: Active Member of Clubs or Organizations: [...] POSITIVE ANTIBODY SCREEN NEGATIVE ARM BAND NUMBER [id number] URINALYSIS, MACRO Result Value Ref Range COLOR, [...] H&H is stable. She was started on [place] and Zofran. Follow up with her SPOT MAN. Chart was 5 to the SPOT MAN's office. 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 She is discharged [...] [facility] with [facility] Plan note Future Appointments Appointment Date:07/23/2022 01:00:00 PM Scheduled [facility]: [facility] Type:CV Echo (FT) Appointment Date:09/07/2022 11:00:00 AM Scheduled Provider:Jamil PRICE MD Location:[facility] Appointment Type:URO New Patient Future Scheduled Tests Radiology* US Renal 06/10/22 * Echo Transthoracic Complete 07/23/22 [facility]05-24-2020 Evaluation + Plan note Future Appointments Appointment Date:07/07/2022 11:00:00 AM Scheduled Provider: [facility] Type:CV Echo (FT) Appointment Date:07/08/2022 01:00:00 PM Scheduled Provider:Chetna Jack MD [facility] Type:Cardiology New Patient (FT) Future Scheduled Tests Radiology* US Renal 06/10/22 * Echo Transthoracic [facility]ments Appointment Date:06/11/2022 03:00:00 PM Scheduled Provider:Chetna Jack MD [facility] Type:Cardiology New Patient (FT) Future Scheduled Tests Radiology* US [facility]10[facility]ments Appointment Date:09/07/2022 11:00:00 AM Scheduled Provider:Jamil PRICE MD Location:[facility] Appointment Type:URO New Patient Future Scheduled Tests Radiology* US [facility]al [facility]10[facility]ments Appointment Date:01/20/2023 10:00:00 AM Scheduled Provider:Rajni Rouse MD Location:[facility] Appointment Type:URO Office Visit Future Scheduled Tests Radiology* US Renal 06/10/22 [facility] evaluation + Plan note Future Appointments Appointment Date:10/21/2022 02:20:00 PM Scheduled Provider:Jaquan Paula Location:[facility] Appointment Type: ER/Hospital Follow Up Appointment Date:11/20/2022 02:40:00 PM Scheduled Provider: Location:[facility] Appointment Type: Lab Draw Appointment Date:01/20/2023 10:00:00 AM Scheduled Provider:Rajni Rouse MD Location:[facility] Appointment Type:URO Office Visit Future Scheduled Tests Laboratory* T3 Free 10/07/22 * Thyroid Stimulating Hormone 10/07/22 * Free T4 10/07/22 Radiology* US [facility]al [facility]10[facility] App[facility]ments Appointment Date:11/19/2022 02:30:00 PM Scheduled Provider:Odilon Strange MD [facility] App[facility] Type:Cardiology New Patient (FT) Appointment Date:01/20/2023 10:00:00 AM Scheduled Provider:Rajni Rouse MD Location:[facility] Appointment Type:URO Office Visit Future Scheduled Tests Radiology* US Renal [facility]10[facility] App[facility]ments Appointment Date:07/13/2023 08:20:00 AM Scheduled Provider:OLGA GATICA PA-C Location:[facility] Appointment Type:URO Office Visit Appointment Date:08/04/2023 09:45:00 AM Scheduled Provider:Rajni Rouse MD Location:[facility] Appointment Type:URO Office Visit Future Scheduled Tests Radiology* US Renal [facility]10/22 [facility] Diagnosis Complex ovarian cyst- Primary Other and unspecified ovarian cyst Uterine leiomyoma, unspecified location [facility] this encounter [facility] Diagnosis Contusion of right thumb without damage to nail, initial encounter- Primary documented in this encounter [employer] Phone: evaluation note* Diagnosis 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 [facility] Diagnosis Acetabular labrum tear, right, initial encounter- Primary [facility] Diagnosis Tear of right acetabular labrum, subsequent encounter- Primary documented in this encounter [facility] note* Diagnosis Tear of right acetabular labrum, subsequent encounter- Primary Tear of right acetabular labrum, subsequent encounter documented in this encounter [facility] note* Diagnosis Generalized abdominal pain- Primary Abdominal pain, generalized documented in this encounter [employer] Phone: evaluation note* Diagnosis Tear of right acetabular labrum, subsequent encounter- Primary documented in this encounter [facility]No[facility] [employer] Other [facility] noteNo InformationNemeriX Other [facility] note* Diagnosis S/P laparoscopic sleeve gastrectomy- Primary Bariatric surgery status Obesity, Class I, BMI 30-34.9 Obesity, unspecified Dietary counseling and surveillance Dietary surveillance and counseling documented in this encounter [facility] note* Diagnosis Tear of right acetabular labrum, subsequent encounter- Primary documented in this encounter [facility] note* Diagnosis Dental infection- Primary Acute apical periodontitis of pulpal origin documented in this encounter [facility] [employer] Phone: evaluation note* Diagnosis Gastroesophageal reflux disease, [...] and counseling documented in this encounter [facility] note* Diagnosis Gastroesophageal reflux disease without esophagitis- Primary Esophageal reflux documented in this encounter [facility] note* Diagnosis Gastroesophageal reflux disease without esophagitis- Primary Esophageal reflux S/P laparoscopic sleeve gastrectomy Bariatric surgery status documented in this encounter [facility] note* Diagnosis Regurgitation of food- Primary Gastroesophageal reflux disease, unspecified whether esophagitis present documented in this encounter [facility] note* Diagnosis Regurgitation of food Gastroesophageal reflux disease, unspecified whether esophagitis present documented in this encounter [facility] note* Diagnosis Gastroesophageal reflux disease without esophagitis Esophageal reflux documented in this encounter [facility] note* Diagnosis Gastroesophageal reflux disease, unspecified whether esophagitis present- Primary [facility]* Diagnosis Gastroesophageal reflux disease with esophagitis without hemorrhage- Primary RICHAR (obstructive sleep apnea) Obstructive sleep apnea (adult) (pediatric) Class 1 obesity with serious comorbidity and body mass index (BMI) of 33.0 to 33.9 in adult, unspecified obesity type S/P laparoscopic sleeve gastrectomy Bariatric surgery status Weight disorder Other symptoms concerning nutrition, metabolism, and development [facility]* Diagnosis Pre-op evaluation- Primary Preoperative examination, [...] esophagitis without hemorrhage [facility]* Diagnosis S/P bariatric surgery- Primary Bariatric surgery status Postoperative pain Other acute postoperative pain Primary osteoarthritis involving multiple joints [facility]* Diagnosis S/P gastric surgery- Primary Other postprocedural status Dietary counseling Dietary surveillance and counseling documented [facility] Diagnosis Postoperative pain Other acute postoperative pain [facility]* Diagnosis Acetabular labrum tear, right, subsequent encounter- Primary [facility]* Diagnosis Esophageal dysphagia- Primary Dysphagia, pharyngoesophageal phase S/P gastric bypass Bariatric surgery status Postoperative malabsorption Other and unspecified postsurgical nonabsorption [facility] Diagnosis Esophageal dysphagia Dysphagia, pharyngoesophageal phase S/P gastric bypass Bariatric surgery status S/P bariatric surgery Bariatric surgery status [facility] Diagnosis Polyarthralgia- Primary Pain in joint, multiple sites Malaise and fatigue Other malaise and fatigue Subjective fever S/P laparoscopic sleeve gastrectomy Bariatric surgery status History of syncope Other specified personal history presenting hazards to health History of adrenal insufficiency Personal history of other endocrine, metabolic, and immunity disorders Hypothyroidism, unspecified type [facility] Diagnosis Encounter to discuss test results- Primary Other specified counseling NO SHOW documented in this encounter [facility] note* Diagnosis Constipation, unspecified constipation type- Primary Nausea Nausea alone Rash of face Rash and other nonspecific skin eruption Enlarged lymph nodes Enlargement of lymph nodes documented in this encounter [facility] note* Diagnosis Vernal conjunctivitis of both eyes- Primary documented in this encounter [facility] note* Diagnosis Rash and nonspecific skin eruption- Primary Rash and other nonspecific skin eruption Pain in eye, unspecified laterality Facial edema Edema documented in this encounter [facility] note* Diagnosis Encounter for surgical aftercare following surgery of digestive system- Primary Aftercare following surgery of the teeth, oral cavity and digestive system, NEC Impaired intestinal absorption Unspecified intestinal malabsorption Esophageal dysphagia Dysphagia, pharyngoesophageal phase Gastroesophageal reflux disease, unspecified whether esophagitis present S/P bariatric surgery Bariatric surgery status documented in this encounter [facility] note* Diagnosis ARSALAN (generalized anxiety disorder)- Primary Generalized anxiety disorder Panic disorder without agoraphobia Moderate recurrent major depression (HCC) Major depressive disorder, recurrent episode, moderate documented in this encounter [facility] note* Diagnosis Postoperative malabsorption- Primary Other and unspecified postsurgical nonabsorption S/P gastric bypass Bariatric surgery status Overweight (BMI 25.0-29.9) Overweight Dietary counseling and surveillance Dietary surveillance and counseling documented in this encounter [facility] note* Diagnosis ARSALAN (generalized anxiety disorder)- Primary Generalized anxiety disorder Panic disorder without agoraphobia Moderate recurrent major depression (HCC) Major depressive disorder, recurrent episode, moderate documented in this encounter [facility] note* Diagnosis Epigastric pain- Primary Abdominal pain, epigastric documented in this encounter [facility] note* Diagnosis Back strain, initial encounter- Primary documented in this encounter [facility] note* Diagnosis Generalized abdominal pain- Primary Abdominal pain, generalized documented in this encounter [facility] note* Diagnosis Nausea- Primary Nausea alone documented in this encounter [facility] note* Diagnosis Gastroesophageal reflux disease, unspecified whether esophagitis present documented in this encounter [facility] note* Diagnosis Generalized anxiety disorder documented in this encounter [facility] note* Diagnosis Nausea- Primary Nausea alone RUQ pain Abdominal pain, right upper quadrant History of cholecystectomy Other acquired absence of organ documented in this encounter [facility] note* Diagnosis Dehydration- Primary RUQ pain Abdominal pain, right upper quadrant documented in this encounter [facility] note* Diagnosis Right knee pain, unspecified chronicity- Primary documented in this encounter [facility] note* Diagnosis Post-operative pain- Primary Other acute postoperative pain 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 documented in this encounter [facility] note* Diagnosis Dehydration- Primary Nausea Nausea alone RUQ pain Abdominal pain, right upper quadrant documented in this encounter [facility] note* Diagnosis RUQ pain- Primary Abdominal pain, right upper quadrant Chronic nausea Nausea alone documented in this encounter [facility] note* Diagnosis Chronic nausea Nausea alone RUQ pain Abdominal pain, right upper quadrant documented in this encounter [facility] note* Diagnosis Abdominal pain, unspecified abdominal location- Primary documented in this encounter [facility] note* Diagnosis Generalized abdominal pain- Primary Abdominal pain, generalized documented in this encounter [facility] note* Diagnosis Nausea Nausea alone RUQ pain Abdominal pain, right upper quadrant History of cholecystectomy Other acquired absence of organ documented in this encounter [facility] note* Diagnosis Median arcuate ligament syndrome (HCC)- Primary Celiac artery compression syndrome Neuralgia and neuritis Neuralgia, neuritis, and radiculitis, unspecified documented in this encounter [facility] note* Diagnosis Chronic pain syndrome- Primary 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 documented in this encounter [facility] note* Diagnosis Median arcuate ligament syndrome (HCC)- Primary Celiac artery compression syndrome 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 documented in this encounter [facility] noteNo assessment information availableDayton Children'[facility] Work Phone: Evaluation note* Diagnosis Median arcuate ligament syndrome (CMS/HCC)- Primary Celiac artery compression syndrome PONV (postoperative nausea and vomiting) Nausea with vomiting RICHAR (obstructive sleep apnea) Obstructive sleep apnea (adult) (pediatric) Asthma Unspecified asthma Anxiety Anxiety state, unspecified Osteoarthritis Osteoarthrosis, unspecified whether generalized or localized, unspecified site Depression Depressive disorder, not elsewhere classified documented in this encounter [facility] Work Phone: Evaluation note* Diagnosis Abdominal pain- Primary Abdominal pain, unspecified site Abdominal pain Abdominal pain, unspecified site Nausea and vomiting, unspecified vomiting type History of gastric bypass Median arcuate ligament syndrome (CMS/HCC) Celiac artery compression syndrome documented in this encounter [facility] Work Phone: Evaluation note* Diagnosis Median arcuate ligament syndrome (CMS/HCC)- Primary Celiac artery compression syndrome documented in this encounter [facility] Work Phone: Evaluation note* Diagnosis Bariatric surgery status- Primary Dietary zinc deficiency Mineral deficiency, not elsewhere classified Vitamin D deficiency Unspecified vitamin D deficiency documented in this encounter [facility] note* Diagnosis Gastroesophageal reflux disease, unspecified whether esophagitis present- Primary Constipation, unspecified constipation type [facility]* Diagnosis Nausea and vomiting, unspecified vomiting type- Primary documented in this encounter [facility] note* Diagnosis Neuralgia and neuritis- Primary Neuralgia, neuritis, and radiculitis, unspecified Gastroesophageal reflux disease without esophagitis Esophageal reflux 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 S/P gastric bypass Bariatric surgery status [facility]* Diagnosis ARSALAN (generalized anxiety disorder)- Primary Generalized anxiety disorder Panic disorder without agoraphobia Moderate recurrent major depression (HCC) Major depressive disorder, recurrent episode, moderate documented in this encounter [facility] note* Diagnosis Sudden onset of severe abdominal pain- Primary Abdominal pain, unspecified site Nausea and vomiting, unspecified vomiting type PEG (percutaneous endoscopic gastrostomy) status (HCC) Gastrostomy status documented in this encounter [facility] note* Diagnosis Median arcuate ligament syndrome (CMS-HCC)- Primary Celiac artery compression syndrome documented in this encounter [facility] Work Phone: Evaluation note* Diagnosis Epigastric pain- [...] Nausea with vomiting documented in this encounter [facility] Work Phone: Evaluation note* Diagnosis Urinary frequency- Primary Urgency of urination documented in this encounter [facility] note* Diagnosis Screening for genitourinary condition Screening for other and unspecified genitourinary condition documented in this encounter [facility] note* Diagnosis ARSALAN (generalized anxiety disorder)- Primary Generalized anxiety disorder Panic disorder without agoraphobia Moderate recurrent major depression (HCC) Major depressive disorder, recurrent episode, moderate documented in this encounter [facility] note* Diagnosis Onset Date Resolution Status Intractable vomiting with nausea acute Small bowel obstruction acut e [facility] Work Phone: Evaluation note* Diagnosis Onset Date Resolution Status Intractable vomiting with nausea acute Small bowel obstruction acut e Status post gastric bypass for obesity acute [facility] Work Phone: Evaluation note* Diagnosis Chronic nausea- Primary Nausea alone History of laparoscopic partial gastrectomy Personal history of surgery to other organs History of sphincterotomy of sphincter of Oddi Other postprocedural status 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 documented in this encounter 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 note* Diagnosis Gastroesophageal reflux disease without esophagitis Esophageal reflux Neuralgia and neuritis Neuralgia, neuritis, and radiculitis, unspecified 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 Chronic abdominal pain Abdominal pain, unspecified site S/P gastric bypass Bariatric surgery status documented [facility] this [facility]* Diagnosis Neuralgia and neuritis- Primary Neuralgia, neuritis, and radiculitis, unspecified 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 documented in this encounter [facility] note* Diagnosis Gastroesophageal reflux disease without esophagitis Esophageal reflux Neuralgia and neuritis Neuralgia, neuritis, and radiculitis, unspecified 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 Chronic abdominal pain Abdominal pain, unspecified site S/P gastric bypass Bariatric surgery status documented in this encounter [facility] note* Diagnosis Gastroesophageal reflux disease without esophagitis Esophageal reflux Neuralgia and neuritis Neuralgia, neuritis, and radiculitis, unspecified 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 Chronic abdominal pain Abdominal pain, unspecified site S/P gastric bypass Bariatric surgery status documented in this encounter [facility] note* Diagnosis Gastroesophageal reflux disease, unspecified whether esophagitis present documented in this encounter [facility] note* Diagnosis Gastroesophageal reflux disease, unspecified whether esophagitis present documented in this encounter [facility] note* Diagnosis Gastroesophageal reflux disease, unspecified whether esophagitis present- Primary documented in this encounter [facility] note* Diagnosis Chronic abdominal pain- Primary Abdominal pain, unspecified site History of gastric bypass Bariatric surgery status Pre-op testing Preoperative examination, unspecified Chronic abdominal pain Abdominal pain, unspecified site History of gastric bypass Bariatric surgery status Pre-op testing Preoperative examination, unspecified documented in this encounter [facility] note* Diagnosis Multiple gastric ulcers- Primary LUQ pain Abdominal pain, left upper quadrant Gastroesophageal reflux disease with esophagitis without hemorrhage Constipation, unspecified constipation type Chronic abdominal pain Abdominal pain, unspecified site History of gastric bypass Bariatric surgery status Pre-op testing Preoperative examination, unspecified [facility] N[facility] [employer] Other [employer] general Narrative - Reported* Type Description Date [...] hystectomy 2020 Hospitalization History childbirths Hospitalization History [facility] 2019 Hospitalization History salvador axel-gastritis 1 03/2020 [facility] [employer] Other IDInteractyans general Narrative - Reported* Type Description Date [...] repair 03/20/2021 Hospitalization History childbirths Hospitalization History [facility] 2019 Hospitalization History [place] reyna-gastritis 1 03/2020 [employer] Other History of Present illness Narrative* Sherry Magaña MD - 04/20/2023 3:45 PM EST And I had a phone conversation patient and I had a phone conversation as she was at home in the [facility] and I was [facility]. She is recovering from a laparotomy for [...] she has seen her general surgeon [facility] and will be following up with her gastro enterologist at the clinic. I will see her back by virtual visit in 2 months [facility] course Narrative No data available for this section [facility]* Attachments The following attachments cannot be sent through Care Everywhere. * Uterine Fibroids (Djiboutian) * Ovarian Cyst: Hemorrhagic (Djiboutian) [facility] Attachments The following attachments cannot be sent through Care Everywhere. * Finger: Bruises (Djiboutian) * Subungual Hematoma (Djiboutian) [facility] Discharge instructions* Attachments The following attachments cannot be sent through Care Everywhere. * Abdominal Pain (Djiboutian) [facility]: Hospital Discharge instructions No data available for this section [facility]* Attachments The following attachments cannot be sent through Care Everywhere. * Abdominal Pain (Djiboutian) documented [facility] [address] HospitalH[facility] Dis[facility] instructions Additional Instructions Please take medications as prescribed. Return to ER or follow-up with PCP or GI specialist if symptoms worsen. 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.[facility] Work Phone: Hospital Discharge instructions Additional [...] fever vomiting despite medication or any other concernsFirSelect Medical [facility] Work Phone: Hospital Discharge instructions Additional Instructions [facility] to manage care: - Full code - Routine vital signs - NPO - Maintain central line, routine care per protocol - Decompress the J-tube by placing it to gravity drain when she does develop nauseaDayton Children'S Hospital Work Phone: Hospital Discharge instructions Additional Instructions Follow up with your [facility] surgeon Return to the ED if you develop worsening symptoms or concernsDayton Children'S Hospital Work Phone: Hospital Discharge instructions Additional Instructions If your symptoms return/worsen or you develop any further concerns or symptoms please see your doctor or return to the emergency department immediately.[facility] Work Phone: Progress note No data available for this section [facility] referral (narrative)* Consultation (Routine) - New Request Specialty Diagnoses / Procedures Referred By Jazmine hooks Referred To Contact [facility] Diagnoses Articular cartilage disorder of right knee Lucie Mora MD [address] [place] [address] Referral ID Status Reason Start Date Expiration Date V isits Requested Visits Authorized [id number] New Request 06/02/2021 06/27/2022 1 1 [facility] for referral (narrative)* Diagnostic Procedure Only (Routine) - Closed Specialty Diagnoses / Procedures Referred By Contac t Referred To Contact XR IMAGING Diagnoses Acetabular labrum tear, right, initial encounter Procedures XR HIP GENERAL 3V PELV/AP/LAT RIGHT RADEX HIP UNILATERAL WITH PELVIS 2-3 VIEWS Kuldip Yousif MD [address] [id number] Xr Imaging Referral ID Status Reason Start Date Expiration Date V isits Requested Visits Authorized [id number] Closed Auto-Generate d Referral 06/18/2021 07/18/2022 1 1 [facility] for referral (narrative)* Outpatient Procedure (Routine) - Pending Review Specialty Diagnoses / Procedures [facility] Referred To Contact [facility] Diagnoses Gastroesophageal reflux disease without esophagitis Procedures EGD - THERAPEUTIC, EUS, OR TUBE INTERVENTIONS ESOPHAGOGASTRODUODENOSC [place] [address] [place] [address] [facility] [address] [place] [address] Referral ID Status Reason Start Date Expiration Date Visits Requested Visits Authorized [id number] Pending Review Auto-Generat ed Referral 11/17/2021 11/17/2022 1 1 [facility] for referral (narrative)* Outpatient Procedure (Routine) - Authorized Specialty Diagnoses / Procedures [facility] Referred To Contact [facility] Diagnoses Gastroesophageal reflux disease without esophagitis S/P laparoscopic sleeve gastrectomy Procedures PH IMPEDANCE INSERT OFF MEDS ESOPHGL FUNCJ G-ESOP RFLX IMPD ELTRD Breanna Middleton, [employer] SOLUTION PREPARER.RADIOCOMMUNICATIONS TECHNICIAN [address] [place] [address] [id number] [place] [address] Referral ID Status Reason Start Date Expiration Date Visits Requested Visits Authorized [id number] Authorized Auto-Generat ed Referral 11/19/2021 11/18/2022 1 1 [facility] for referral (narrative)* Outpatient Procedure (Routine) - Pending Review Specialty Diagnoses / Procedures [facility] Referred To Contact [facility] Diagnoses Regurgitation of food Gastroesophageal reflux disease, unspecified whether esophagitis present Procedures PH HUERTA INSERT OFF MEDS GASTROESOPHAG REFLX TEST W/TELEMTRY PH Breanna Hernandez APRN.RADIOCOMMUNICATIONS TECHNICIAN [address] [place] [address] [address] Referral ID Status Reason Start Date Expiration Date Visits Requested Visits Authorized [id number] Pending Review Auto-Generat ed Referral 12/17/2022 1 1 [facility] for referral (narrative)* Outpatient Procedure (Routine) - Closed Specialty Diagnoses / Procedures Referred By Contac t Referred To Contact [facility] Diagnoses Gastroesophageal reflux disease without esophagitis Procedures EGD - THERAPEUTIC, EUS, OR TUBE INTERVENTIONS ESOPHAGOGASTRODUODENOSC OPY [place] [id number] [place] [id number] Referral ID Status Reason Start Date Expiration Date V isits Requested Visits Authorized [id number] Closed Auto-Generate d Referral 11/17/2021 11/17/2022 1 1 [facility] for referral (narrative)* Outpatient Procedure (Routine) - Pending Review Specialty Diagnoses / Procedures Referred By Contac t Referred To [facility] Diagnoses Pre-op evaluation Procedures ECG COMPLETE ECG ROUTINE ECG W/LEAST 12 LDS W/I&R Ioana Hogan PA-C [address] [place] [address] [facility] [address] [place] [id number] Referral ID Status Reason Start Date Expiration Date Visits Requested Visits Authorized [id number] Pending Review Auto-Generat ed Referral 01/28/2023 1 1 [facility] for referral (narrative)* Outpatient Procedure (Routine) - Authorized Specialty Diagnoses / Procedures Referred By Contac t Referred To Contact [facility] Diagnoses Esophageal dysphagia S/P gastric bypass Procedures EGD - THERAPEUTIC, EUS, OR TUBE INTERVENTIONS EGD BALLOON DILATION ESOPHAGUS <30 MM DIAM Breanna Stern APRN.CNP [address] [place] [address] [facility] [address] [address] Referral ID Status Reason Start Date Expiration Date Visits Requested Visits Authorized [id number] Authorized Auto-Generat ed Referral 03/05/2022 03/05/2023 1 1 [facility] for referral (narrative)* Outpatient Procedure (Routine) - Closed Specialty Diagnoses / Procedures Referred By Contac t Referred To Contact [facility] Diagnoses Esophageal dysphagia S/P gastric bypass Procedures EGD - THERAPEUTIC, EUS, OR TUBE INTERVENTIONS EGD BALLOON DILATION ESOPHAGUS <30 MM DIAM Breanna Stern APRN.CNP [address] [place] [address] [facility] [address] [address] Referral ID Status Reason Start Date Expiration Date V isits Requested Visits Authorized [id number] Closed Auto-Generate d Referral 03/05/2022 03/05/2023 1 1 [facility] for referral (narrative)* Outpatient Procedure (Routine) - Pending Review Specialty Diagnoses / Procedures Referred By Andriyac t Referred To Contact [facility] [facility] Diagnoses Constipation, unspecified constipation type Procedures [facility] ANORECTAL MANOMETRY ANORECTAL MANOMETRY Kasie Avalos MD [address] [place] [address] [address] Referral ID Status Reason Start Date Expiration Date Visits Requested Visits Authorized [id number] Pending Review Auto-Generat ed Referral 07/22/2022 07/23/2023 1 1 [facility] for referral (narrative)* Diagnostic Procedure Only (Routine) - Pending Review Specialty Diagnoses / Procedures Referred By Contac t Referred To Contact XR IMAGING Diagnoses S/P bariatric surgery Gastroesophageal reflux disease, unspecified whether esophagitis present Procedures XR UPPER GI ROUTINE DOUBLE CONTRAST/AIR RADIOLOGIC EXAM UPR GI TRC DOUBLE CONTRAST STUDY Breanna Stern APRN.CNP [address] [place] [address] Xr Imaging Referral ID Status Reason Start Date Expiration Date Visits Requested Visits Authorized [id number] Pending Review Auto-Generat ed Referral 09/18/2022 10/18/2023 1 1 [facility] for referral (narrative)* Outpatient Procedure (Routine) - Authorized Specialty Diagnoses / Procedures Referred By Contac t Referred To Contact [facility] Diagnoses Epigastric pain Procedures EGD DIAGNOSTIC ESOPHAGOGASTRODUODENOSC OPY [place] [address] [place] [address] [facility] Disease [address] [place] [address] Referral ID Status Reason Start Date Expiration Date Visits Requested Visits Authorized [id number] Authorized Auto-Generat ed Referral 10/20/2022 10/21/2023 1 1 [facility] for referral (narrative)* Diagnostic Procedure Only (Routine) - Closed Specialty Diagnoses / Procedures Referred By Jazmine hooks Referred To Contact US IMAGING Diagnoses Nausea RUQ pain History of cholecystectomy Procedures US ABD RIGHT UPPER QUADRANT US ABDOMINAL REAL TIME W/[place] [address] [place] [id number] Us Imaging [place] [address] Referral ID Status Reason Start Date Expiration Date V isits Requested Visits Authorized [id number] Closed Auto-Generate d Referral 11/04/2022 12/04/2023 1 1 * Diagnostic Procedure Only (Routine) - Authorized Specialty Diagnoses / Procedures Referred By Contact Referred To Contact MOLECULAR & FUNCTIONAL IMAGING Diagnoses Nausea RUQ pain History of cholecystectomy Procedures NM HEPATOBILIARY W EF AND/OR RX HEPATOBIL SYST IMAG INC GB W/[place] [address] [place] [id number] Molecular & Functional Imaging [address] [place] [address] Referral ID Status Reason Start Date Expiration Date Visits Requested Visits Authorized [id number] Authorized Auto-Generat ed Referral 11/04/2022 12/04/2023 1 1 [facility] for referral (narrative)* Diagnostic Procedure Only (Routine) - Pending Review Specialty Diagnoses / Procedures Referred By Jazmine t Referred To Contact XR IMAGING Diagnoses Right knee pain, unspecified chronicity Procedures XR KNEE GENERAL 4V AP BOTH/PA BOTH/LAT/MERC RIGHT RADIOLOGIC EXAM KNEE COMPLETE 4/MORE VIEWS Agustin Salmeron PA-C [address] [place] [address] Xr Imaging [place] [address] Referral ID Status Reason Start Date Expiration Date Visits Requested Visits Authorized [id number] Pending Review Auto-Generat ed Referral 11/04/2022 12/04/2023 1 1 [facility] for referral (narrative)* Outpatient Procedure (Urgent) - Authorized Specialty Diagnoses / Procedures Referred By Contac t Referred To Contact [facility] [place] Diagnoses Chronic nausea RUQ pain Procedures US MESENTERIC ARTERY CMPLT VAS LAB DUP-SCAN ARTL TIARA ABDL/PEL/SCROT&/[place] [address] [place] [address] [facility] [address] [place] [address] Referral ID Status Reason Start Date Expiration Date Visits Requested Visits Authorized [id number] Authorized Auto-Generat ed Referral 11/23/2022 11/23/2023 1 1 [facility] for referral (narrative)* Outpatient Procedure (Urgent) - Closed Specialty Diagnoses / Procedures Referred By Contac t Referred To Contact [facility] Diagnoses Chronic nausea RUQ pain Procedures US MESENTERIC ARTERY CMPLT VAS LAB DUP-SCAN ARTL TIARA ABDL/PEL/SCROT&/[place] [address] [place] [address] [facility] [address] [place] [address] Referral ID Status Reason Start Date Expiration Date V isits Requested Visits Authorized [id number] Closed Auto-Generate d Referral 11/23/2022 11/23/2023 1 1 [facility] for referral (narrative)* Diagnostic Procedure Only (Routine) - Closed Specialty Diagnoses / Procedures Referred By Contac t Referred To Contact US IMAGING Diagnoses Nausea RUQ pain History of cholecystectomy Procedures US ABD RIGHT UPPER QUADRANT US ABDOMINAL REAL TIME W/[place] [address] [place] [address] [facility] [address] Referral ID Status Reason Start Date Expiration Date V isits Requested Visits Authorized [id number] Closed Auto-Generate d Referral 11/04/2022 12/04/2023 1 1 [facility] for referral (narrative)* Outpatient Procedure (Routine) - Authorized Specialty Diagnoses / Procedures [facility] Diagnoses Gastroesophageal reflux disease, unspecified whether esophagitis present Procedures PH HUERTA INSERT ON [employer] GASTROESOPHAG REFLX TEST W/TELEMTRY PH ELTRKasie Moore MD [address] [place] [address] [address] Referral ID Status Reason Start Date Expiration Date Visits Requested Visits Authorized [id number] Authorized Auto-Generat ed Referral 04/28/2023 04/27/2024 1 1 * Outpatient Procedure (Routine) - Authorized Specialty Diagnoses / Procedures Referred By Jazmine hooks Referred To [facility] Diagnoses Gastroesophageal reflux disease, unspecified whether esophagitis present Procedures EGD - THERAPEUTIC, EUS, OR TUBE INTERVENTIONS ESOPHAGOGASTRODUODENOSC OPY TRANSORAL DIAGNOSTIC Kasie Avalos MD [address] [place] [address] [address] Referral ID Status Reason Start Date Expiration Date Visits Requested Visits Authorized [id number] Authorized Auto-Generat ed Referral 04/28/2023 04/27/2024 1 1 [facility] for referral (narrative)* Outpatient Procedure (Routine) - Closed Specialty Diagnoses / Procedures [facility] Diagnoses Gastroesophageal reflux disease, unspecified whether esophagitis present Procedures EGD - THERAPEUTIC, EUS, OR TUBE INTERVENTIONS ESOPHAGOGASTRODUODENOSC OPY TRANSORAL DIAGNOSTIC Kasie Avalos MD [address] [place] [address] [address] Referral ID Status Reason Start Date Expiration Date V isits Requested Visits Authorized [id number] Closed Auto-Generate d Referral 04/28/2023 04/27/2024 1 1 [facility] for referral (narrative)* Outpatient Procedure (Routine) - Authorized Specialty Diagnoses / Procedures Referred By Jazmine hooks Referred To Contact [facility] [place] Diagnoses Multiple gastric ulcers Procedures EGD DIAGNOSTIC ESOPHAGOGASTRODUODENOSC OPY TRANSORAL DIAGNOSTIC Kasie Avalos MD [address] [place] [address] [address] Referral ID Status Reason Start Date Expiration Date Visits Requested Visits Authorized [id number] Authorized Auto-Generat ed Referral 09/08/2023 09/07/2024 1 1 [facility] for visit NarrativeGeneral Surgery Referral Update[facility] [employer] Other Reason for visit Narrative* Outpatient Procedure (Routine) - Closed Specialty Diagnoses / Procedures Referred By Jazmine hooks Referred To Contact [facility] Diagnoses Gastroesophageal reflux disease without esophagitis Procedures EGD - THERAPEUTIC, EUS, OR TUBE INTERVENTIONS ESOPHAGOGASTRODUODENOSC OPY [place] [address] [place] [address] [address] Referral ID Status Reason Start Date Expiration Date V isits Requested Visits Authorized [id number] Closed Auto-Generate d Referral 11/17/2021 11/17/2022 1 1 [facility] for visit Narrative* Outpatient Procedure (Routine) - Closed Specialty Diagnoses / Procedures [facility] Referred To Contact [facility] Diagnoses Esophageal dysphagia S/P gastric bypass Procedures EGD - THERAPEUTIC, EUS, OR TUBE INTERVENTIONS EGD BALLOON DILATION ESOPHAGUS <30 MM DIAM Breanna Stern, SLIM.RADIOCOMMUNICATIONS TECHNICIAN [address] [place] [address] [facility] [address] [place], [place] [id number] Referral ID Status Reason Start Date Expiration Date V isits Requested Visits Authorized [id number] Closed Auto-Generate d Referral 03/05/2022 03/05/2023 1 1 [facility] for visit Narrative* Outpatient Procedure (Urgent) - Closed Specialty Diagnoses / Procedures [facility] Referred To Contact [facility] Diagnoses Chronic nausea RUQ pain Procedures US MESENTERIC ARTERY CMPLT VAS LAB DUP-SCAN ARTL TIARA ABDL/PEL/SCROT&/[place] [address] [address] [id number] [place] [id number] Referral ID Status Reason Start Date Expiration Date V isits Requested Visits Authorized [id number] Closed Auto-Generate d Referral 11/23/2022 11/23/2023 1 1 [facility] for visit Narrative* Diagnostic Procedure Only (Routine) - Closed Specialty Diagnoses / Procedures [facility] Referred To Contact US IMAGING Diagnoses Nausea RUQ pain History of cholecystectomy Procedures US ABD RIGHT UPPER QUADRANT US ABDOMINAL REAL TIME W/[place] [address] [place] [address] Us Imaging [facility] Referral ID Status Reason Start Date Expiration Date V isits Requested Visits Authorized [id number] Closed Auto-Generate d Referral 11/04/2022 12/04/2023 1 1 [facility] for visit Narrative* Outpatient Procedure (Routine) - Closed Specialty Diagnoses / Procedures [facility] Referred To Contact [facility] [place] Diagnoses Gastroesophageal reflux disease, unspecified whether esophagitis present Procedures EGD - THERAPEUTIC, EUS, OR TUBE INTERVENTIONS ESOPHAGOGASTRODUODENOSC OPY TRANSORAL DIAGNOSTIC Kasie Avalos MD [address] [facility] [place] [address] [facility] [address] [place] [address] Referral ID Status Reason Start Date Expiration Date V isits Requested Visits Authorized [id number] Closed Auto-Generate d Referral 04/28/2023 04/27/2024 1 1 [facility] Summary Purpose Family History [...] Documents on File Type Date Recorded Patient Process Validation Engineer Expl anation Advance Directive(s) 03/13/2021 9:49 AM Date Activated Date Inactivated Comments 12/06/2022 9:37 PM 12/09/2022 8:48 PM Question Answer Comments Full Code Order Discussed With: Patient Date Activated Date Inactivated Comments 11/22/2022 8:03 PM 11/23/2022 5:11 PM Question Answer Comments Full Code Order Discussed With: Patient Documents on File Type Date Recorded Patient Process Validation Engineer Expl anation Advance Directive(s) 03/13/2021 9:49 AM [...] Documents on File Type Date Recorded Patient Process Validation Engineer Expl anation Advance Directive(s) 07/04/2021 4:13 PM [...] Documents on File Type Date Recorded Patient Process Validation Engineer Expl anation Advance Directive(s) 03/13/2021 9:49 AM [...] with Follow Up in 24 Hours ([facility]) ([place]jib[place]) documented in this encounter Assessments Diagnosis Lower abdominal pain- Primary Abdominal pain, other specified site Reason for Referral Status Reason Specialty Diagnoses / Procedures Referre d By Contact Referred To Contact Closed Procedures US PELVIC WITH TRANSVAGINAL WITH DOPPLER Juanito Laird PA-C [address] [place] [address] Specialty Diagnoses / Procedures Referred By Contact Referred To Contact [facility] Diagnoses Tear of right acetabular labrum, subsequent encounter Procedures CONSULT TO PHYSICAL THERAPY PHYSICAL THERAPY EVALUATION HIGH COMPLEX 45 MINS Justine Shabazz PA-C [address] [place] [address] [facility] [address] [place] [address] Referral ID Status Reason Start Date Expiration Date Visits Requested Visits Authorized [id number] Pending Review Auto-Generat ed Referral 06/23/2021 06/23/2022 1 1 Reason 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 - Please request Dr. Keven Gomez [phone] Diagnosis 1 Hernia (K46.9) Referral Organization [facility] Family Priscila Guo Referring Provider First Name Shanna Referring Provider Last Name Slade Referring Provider Specialty Nurse Ramona castañeda Referred Organization [facility] Referred Address [address],[place],[address] Referred Provider Specialty General Surg ammon Referral Priority Routine Specialty Diagnoses / Procedures Referred By Jazmine hooks Referred To Contact Diagnoses S/P laparoscopic sleeve gastrectomy Procedures CONSULT TO BARIATRIC NUTRITION OFFICE/OUTPATIENT [facility] MDM 60-74 MINUTES Sabina Joy APRN.RADIOCOMMUNICATIONS TECHNICIAN [address] [place] [address] Referral ID Status Reason Start Date Expiration Date Visits Requested Visits Authorized [id number] Pending Review PCP Requested Referral 10/09/2021 10/09/2022 [...] BARIATRIC ESOPHAGOGASTRODUODENOSCO PY TRANSORAL DIAGNOSTIC Sabina Joy APRN.RADIOCOMMUNICATIONS TECHNICIAN [address] [place] [address] [facility] [address] [place] [address] Referral ID Status Reason Start Date Expiration Date Visits Requested Visits Authorized [id number] Pending Review Auto-Generat ed Referral 10/09/2021 10/09/2022 1 1 Specialty Diagnoses / Procedures Referred By Contac t Referred To Contact Diagnoses RICHAR (obstructive sleep apnea) Procedures CONSULT TO SLEEP MEDICINE - ADULT OFFICE/OUTPATIENT [facility] 60-74 MINUTES Sabina Joy, AMMONIA SOLUTION PREPARER.RADIOCOMMUNICATIONS TECHNICIAN [address] [place] [address] Referral ID Status Reason Start Date Expiration Date Visits Requested Visits Authorized [id number] Authorized PCP Requested Referral 2 01/02/2023 1 1 Specialty Diagnoses / Procedures Referred By Contac t Referred To Contact [facility] Diagnoses S/P bariatric surgery Primary osteoarthritis involving multiple joints Procedures CONSULT TO PHYSICAL THERAPY PHYSICAL THERAPY EVALUATION HIGH COMPLEX 45 MINS Breanna Stern, AMMONIA SOLUTION PREPARER.RADIOCOMMUNICATIONS TECHNICIAN [address] [place] [address] [facility] [address] [place] [address] Referral ID Status Reason Start Date Expiration Date Visits Requested Visits Authorized [id number] Pending Review Auto-Generat ed Referral 2 02/03/2023 1 1 Specialty Diagnoses / Procedures Referred By Contac t Referred To Contact Endocrinology Diagnoses History of adrenal insufficiency Hypothyroidism, unspecified type Procedures CONSULT TO ENDOCRINOLOGY OFFICE/OUTPATIENT [facility] 60-74 MINUTES Aliyah Washburn PA-C [address] [place] [address] Referral ID Status Reason Start Date Expiration Date Visits Requested Visits Authorized [id number] Authorized PCP Requested Referral 06/12/2022 06/12/2023 1 1 Specialty Diagnoses / Procedures Referred By Contac t Referred To Contact Allergy Diagnoses Rash and nonspecific skin eruption Pain in eye, unspecified laterality Facial edema Procedures CONSULT TO ALLERGY/IMMUNOLOGY OFFICE/OUTPATIENT [facility] 60-74 MINUTES Samara Evans MD [address] [place] [address] Referral ID Status Reason Start Date Expiration Date Visits Requested Visits Authorized [id number] Authorized PCP Requested Referral 07/28/2022 07/28/2023 1 1 Specialty Diagnoses / Procedures Referred By Contac t Referred To Contact CT IMAGING Diagnoses Generalized abdominal pain Procedures CTA ABD/PEL W IVCON CT ANGIO ABD&PLVIS CNTRST MTRL W/WO CNTRST Agustin Piper MD [address] [place] [address] Ct Imaging [place] [address] Referral ID Status Reason Start Date Expiration Date Visits Requested Visits Authorized [id number] Authorized Auto-Generat ed Referral 3 01/17/2023 1 1 Specialty Diagnoses / Procedures Referred By Contac t Referred To Contact Home Health Services Diagnoses Median arcuate ligament syndrome (CMS/HCC) Alicia Toro, AMMONIA SOLUTION PREPARER-RADIOCOMMUNICATIONS TECHNICIAN [address] [place] [address] Referral ID Status Reason Start Date Expiration Date Visits Requested Visits Authorized [id number] Authorized Specialty Services Required 03/08/2023 03/07/2024 999 999 Specialty Diagnoses / Procedures Referred By Contac t Referred To Contact Home Health Services Diagnoses Other [place] [address] [address] [place] [address] Referral ID Status Reason Start Date Expiration Date Visits Requested Visits Authorized [id number] Authorized Specialty Services Required 07/01/2023 06/30/2024 999 999 Specialty Diagnoses / Procedures Referred By Contac t Referred To Contact Francisco J Steve MD [address] [place] [address] Referral ID Status Reason Start Date Expiration Date V isits Requested Visits Authorized [id number] Pending Review 1 1 Specialty Diagnoses / Procedures Referred By Contac t Referred To Contact [facility] Diagnoses Chronic nausea History of laparoscopic partial gastrectomy History of sphincterotomy of sphincter of Oddi Median arcuate ligament syndrome (HCC) Procedures CONSULT TO [facility] LAPAROTOMY CELIOTOMY W/[place] [address] [place] [address] [facility] [address] [address] Referral ID Status Reason Start Date Expiration Date Visits Requested Visits Authorized [id number] Canceled Financial Clearance Required - OON Payor 07/19/2023 07/18/2024 99 99 Specialty Diagnoses / Procedures Referred By Jazmine t Referred To Contact Diagnoses Chronic abdominal pain History of gastric bypass Pre-op testing Procedures REFER TO [facility] - PREOPERATIVE OPTIMIZATION OFFICE/OUTPATIENT [facility] 60 [place] [address] [place] [id number] Referral ID Status Reason Start Date Expiration Date Visits Requested Visits Authorized [id number] Authorized PCP Requested Referral 09/09/2023 09/08/2024 1 1 Medications Administered Section Inactive Administered Medications - up to 3 most recent administrations Medication Order MAR Action Action Date Dose Rate Site benzocaine 20% (TOPEX) TOPICAL, X (OR/PROCEDURE) PRN, Starting on Heena 12/25/21 at 0939, Until Heena 12/25/21 at 0939, Intraprocedure Given 12/25/2021 9:39 AM EST 1 Richardson Meperidine (PF) injection (DEMEROL) X (OR/PROCEDURE) PRN, [...] and content) DATE CREATED AUTHOR 09/11/2017 [facility] DATE CREATED AUTHOR AUTHOR'S ORGANIZ ATION 06/03/2021 [facility] DATE CREATED AUTHOR AUTHOR'S ORGANIZ ATION 06/24/2022 [facility] DATE CREATED AUTHOR AUTHOR'S ORGANIZ ATION 11/01/2022 [facility] DATE CREATED AUTHOR AUTHOR'S ORGANIZ ATION 11/07/2022 [facility] DATE CREATED AUTHOR AUTHOR'S ORGANIZ ATION 11/22/2022 [facility] DATE CREATED AUTHOR AUTHOR'S ORGANIZ ATION 11/29/2022 [facility] DATE CREATED AUTHOR AUTHOR'S ORGANIZ ATION 12/16/2022 [facility] DATE CREATED AUTHOR AUTHOR'S ORGANIZ ATION 02/12/2023 [facility] DATE CREATED AUTHOR AUTHOR'S ORGANIZ ATION 02/18/2023 [facility] DATE CREATED AUTHOR AUTHOR'S ORGANIZ ATION 06/27/2023 [facility] DATE CREATED AUTHOR AUTHOR'S ORGANIZ ATION 07/11/2023 [facility] DATE CREATED AUTHOR AUTHOR'S ORGANIZ ATION 07/21/2023 [facility] DATE CREATED AUTHOR AUTHOR'S ORGANIZ ATION 07/22/2023 [facility] DATE CREATED AUTHOR AUTHOR'S ORGANIZ ATION 08/06/2023 [facility] DATE CREATED AUTHOR AUTHOR'S ORGANIZ ATION 08/07/2023 [facility] DATE CREATED AUTHOR AUTHOR'S ORGANIZ ATION 09/01/2023 [facility] DATE CREATED AUTHOR AUTHOR'S ORGANIZ ATION 09/05/2023 [facility] DATE CREATED AUTHOR AUTHOR'S ORGANIZ ATION 09/07/2023 [facility] Reason for Visit (unrecogniz ed section and content) Reason Comments Fatigue Anxiety Stress Specialty Diagnoses / Procedures Referred By Jazmine hooks Referred To Contact Psychology / ADULT PSYCHOLOGY Diagnoses follow up Procedures VIDEO PSYC/PSYL EST Pablo Lebron, ROSALBA [address] [place] [address] Pablo Lebron, FARHATNicOx [address] [place] [phone] Referral ID Status Reason Start Date Expiration Date V isits Requested Visits Authorized [id number] Pending Review 06/09/2023 09/07/2023 1 1 Reason Comments Abdominal Pain RUQ abdominal pain t hat is spreading across her back and into the left side. pt states that she does not have a gallbladder or appendix and has been treated by [facility] recently for bowel adhesions and it is just getting worse. 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 Reason Comments Follow-up Pt presents for [...] GASTROESOPHAG REFLX TEST W/TELEMTRY PH ELTRD Breanna Stern APRN.RADIOCOMMUNICATIONS TECHNICIAN [address] [place] [address] [facility] [address] [place] [address] Referral ID Status Reason Start Date Expiration Date V isits Requested Visits Authorized [id number] Closed Auto-Generate d Referral 12/25/2021 12/17/2022 1 [...] VIDEO PSYC/PSYL EST Self Pablo Lebron, PSYD [address] [place] [address] Referral ID Status Reason Start Date Expiration Date V isits Requested Visits Authorized [id number] Outside PCP 09/21/2022 12/20/2022 1 1 Reason Comments Anxiety Stress Specialty Diagnoses / Procedures Referred By Contac t Referred To Contact Psychology / ADULT PSYCHOLOGY Diagnoses Follow up Procedures VIDEO PSYC/PSYL EST Pablo Lebron, PSYD [address] [place] [address] Pablo Lebron, PSYD [address] [place] [address] Referral ID Status Reason Start Date Expiration Date V isits Requested Visits Authorized [id number] Pending Review 10/05/2022 01/03/2023 1 1 Reason [...] 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] Procedures MT UNLISTED PX ABDOMEN MUSCULOSKELETAL SYSTEM Release Median Arcuate Ligament [place] [address] [place] [address] [place] [address] [place] [address] Referral ID Status Reason Start Date Expiration Date Visits Re quested Visits Authorized [id number] 1 1 Reason Comments Abdominal Pain Specialty Diagnoses / Procedures Referred By Contac t Referred To Contact Diagnoses Abdominal pain History of gastric bypass Nausea and vomiting, unspecified vomiting type nausea and vomiting [place] [address] [place] [address] [address] [address] [place] [address] Referral ID Status Reason Start Date Expiration Date Visits Re quested Visits Authorized [id number] 1 1 Reason Comments Weight Loss Surgery Reason Comments Established Patient Reason Comments Appointment Cancel EGD Reason Comments Patient Question Reason Comments Vomiting Reason Comments Patient Education Zoning Assistant - Other Reason Onset Date Comments Refill [...] Procedures [place] [address] [address] [facility] [address] [place] [address] [address] [address] [place] [address] Referral ID Status Reason Start Date Expiration Date Visits Re quested Visits Authorized [id number] 1 1 Reason Comments Received Outside Medical Records Reason Comments Education Of Patient/family Reminder Call 08/26/23 appt confirm ed Reason Comments Establish Care pain Reason Comments Patient Question Zoning Assistant - Other Reason Onset Date Comments Refill Request 08/23/2023 Reason Onset Date Comments Procedure 08/26/2023 HUERTA 48 Hour pH Capsule Placement Specialty Diagnoses / Procedures Referred By Jazmine hooks Referred To Contact [facility] Diagnoses Gastroesophageal reflux disease, unspecified whether esophagitis present Procedures PH HUERTA INSERT ON MEDS GASTROESOPHAG REFLX TEST W/TELEMTRY PH Kasie Sherman MD [address] [place] [address] [facility] [address] [place] [address] Referral ID Status Reason Start Date Expiration Date V isits Requested Visits Authorized [id number] Closed Auto-Generate d Referral 04/28/2023 04/27/2024 1 1 Reason Onset Date Comments Procedure 08/31/2023 48 Hr HUERTA pH D ownload Reason Comments 10/20/2023 Diagnostic Laparosco py Reason Comments Established Patient 3 month follow up Altagracia Arnett RN - 01/30/2020 5:34 PM [...] cart, no distress noted. Emergency Department Report [facility] EMERGENCY DEPARTMENT Service Date:.01/30/20 PCP: Shanna June Chief Complaint: Chief Complaint Patient presents with Abdominal Pain RUQ abdominal pain that is spreading across her back and into the left side. pt states that she does not have a gallbladder or appendix and has been treated by [facility] recently for bowel adhesions and it is [...] file Gets together: Not on file Attends faith service: Not on file Active member of [...] with a prescription of Zofran and some Yantic to help with some of the discomfort. [...] 08/28/2021 08/29/2021 08/30/2021 bupivacaine-EPINEPHrine PF (MARCAINE-w/EPINEPHRINE) 0.5% -[id number] injection 10 mL (COMPLETED) 10 mL, Dental, [...] RN)2 (Given - Provider: Danny Middleton RN) 0821 [...] (See Alternative - Provider: Eileen Austin, DEE) 09 (See Alternative - Provider: Nadia Zee [...] Olga Paz RN) 0544 (Given - Provider: Danyn Middleton RN) 0543 (Given - Provider: Eileen Austin, DEE) liothyronine (Cytomel) tablet 5 mcg 5 mcg, oral, Daily, First dose on Wed03/06/23 at 0900 0852 (Given - Provider: Cole Nuñez RN) 0823 (Given - Provider: Nadia Zee, DEE) 09 (Given - Provider: Nadia Zee RN) mirtazapine [...] Olga Paz RN)0840 (Given - Provider: Cole Nuñez, DEE) HYDROmorphone (Dilaudid) injection 0.5 mg 0.5 mg, intravenous, Every 4 hours PRN, pain breakthrough, Starting on Wed03/08/23 at 1030 1426 (Given - Provider: Cole Nuñez RN)2126 (Given - Provider: Danny Middleton RN) 0145 (Given - Provider: Danny Middleton, DEE)0822 (Given - Provider: Nadia Zee RN)1338 (Given - Provider: Nadia Zee RN)1619 (Given - Provider: Nadia Zee, RN) 0901 (Given - Provider: Nadia Zee [...] RN)2000 (Given - Provider: Eileen Austin, DEE) 0543 (See Alternative - Provider: Eileen Austin RN) [...] Austin, DEE) 43 (Given - Provider: Eileen Austin RN) [...] Zee RN) 0902 (Given - Provider: Nadia Zee, DEE) prochlorperazine (Compazine) suppository 25 mg(Linked Group 4) 25 mg, rectal, Every 12 hours PRN, nausea/vomiting, first line, Starting on 03/06/23 at 1240, Give MT if patient is unable to take orally or receive by injection. 1119 (See Alternative - Provider: Cole Nuñez RN) 1622 (See Alternative - Provider: Nadia Zee RN) 0902 (See Alternative - Provider: Nadia Zee, DEE) prochlorperazine (Compazine) tablet 10 mg(Linked Group 4) 10 mg, oral, Every 6 hours PRN, nausea/vomiting, first line, Starting on 03/06/23 at 1240 1119 (Given - Provider: Cole Nuñez RN) 1622 (See Alternative - Provider: Nadia Zee, DEE) 0902 (See Alternative - Provider: Nadia Zee [...] line, Starting on 03/06/23 at 1240
Give MT if patient is unable to take orally or receive by injection.
Scheduled Medication Order 03/18/2023 03/19/2023 03/20/2023 busPIRone (Buspar) tablet 10 mg 10 mg, oral, 2 times daily, First dose on Wed03/16/23 at 2100 0811 (Given - Provider: Andie Lugo RN)2009 (Given - Provider: Nathalie Campos RN) 0839 (Given - Provider: Christina Lazo RN)2050 (Given - Provider: Nathalie Campos RN) 0802 (Given - Provider: Stacie Blanco RN)2100 (Due) [...] 0802 (Given - Provider: Stacie Blanco RN) famotidine [...] Andie Lugo RN) 0839 (Given - Provider: Christnia Lazo RN) 08 (Given - Provider: Stacie [...] 2100 0919 (Given - Provider: Beatriz Dow RN)223 (Given - Provider: Andrew Potts, DEE) 08 (Given - Provider: Mariah Herrera RN)2137 (Given - Provider: Grecia Schaffer, DEE) 1007 [...] RN) 08 (Given - Provider: Mariah Herrera RN)2139 (Given - Provider: Grecia Schaffer, DEE) 1012 [...] RN) 1007 (Given - Provider: Tory Mcmullen, EDE)1145 (Given - Provider: Tory Mcmullen, DEE)1700 (Due) [...] Herrera RN)2351 (Rate/Dose Verify - Provider: Grecia Misty Roquemore, RN) 0257 (Rate/Dose Verify - Provider: Grecia Schaffer RN)0536 (Rate/Dose Verify - Provider: Grecia Schaffer RN)1000 (Stopped - Provider: Tory Mcmullen, DEE)1001 [...] Grecia Schaffer, DEE)1007 (Given - Provider: Tory Mcmullen RN) morphine injection 4 mg (CANCELED) 4 [...] than 38 C, Starting on Wed06/30/23 at 2057 Or acetaminophen (Tylenol) tablet 650 mg (CANCELED)Jump [...] Team Status: Active Member Role Status Dates Thomsa Calix MD Primary Care Provider Active Start: July 17, 2023 LISA DicksonC Emergency Provider Active Start: July 17, 2023 Tahir Whitt MD Admit Provider, Attending Provider Active Start: July 17, 2023 Band Saw Runner Relationship Specialty Start Date End Date Shanna June, ROOFING APPLICATOR [address] [place] [address] PCP - General Nurse Practitioner - Family 01/30/20 Band Saw Runner Relationship Specialty Start Date End Date Shanna June CNP [address] [place] [address] PCP - General Family Practice 01/31/20 Antelmo Davey [address] [place] [phone] (Fax) 09/25/19 [place] [address] [place] [address] Consulting General Surgery 09/25/19 Shanna June CNP [address] [place] [address] Referring Family Practice 10/19/19 Band Saw Runner Relationship Specialty Start Date End Date Shanna June CNP [address] [place] [address] PCP - General Family Practice 01/31/20 Antelmo Davey MD [address] [place] [address] (Fax) 09/25/19 [place] [address] [place] [address] Consulting General Surgery 09/25/19 Shanna June, [facility] [address] [place] [address] Referring Family Practice 10/19/19 Band Saw Runner Relationship Specialty Start Date End Date Shanna June CNP [address] [place] [address] PCP - General Family Practice 01/31/20 Antelmo Davey MD [address] [facility] [place] [address] (Fax) 09/25/[address] [place] [address] [facility] [place] [address] Consulting General Surgery 09/25/19 Shanna June, RADIOCOMMUNICATIONS TECHNICIAN [address] [place] [address] Referring Family Practice 10/19/19 Band Saw Runner Relationship Specialty Start Date End Date Shanna June CNP [address] [place] [address] PCP - General Family Practice 01/31/20 Antelmo Davey MD [address] [place] [address] (Fax) 09/25/[address] [place] [address] [facility] [place] [address] Consulting General Surgery 09/25/19 SladeDenverShannaBETH tomlin [address] [place] [address] Referring Family Practice 10/19/19 Band Saw Runner Relationship Specialty Start Date End Date Wally Foley [address] [place] [address] PCP - General Specialist 07/27/21 Band Saw Runner Relationship Specialty Start Date End Date SladeShanna RADIOCOMMUNICATIONS TECHNICIAN [address] [place] [address] PCP - General Family Practice 01/31/20 Antelmo Davey MD [address] [facility] [place] [address] 09/25/19 [place] [address] [place] [address] Consulting General Surgery 09/25/19 Slade ShannaBETH tomlin [address] [place] [address] Referring Family Practice 10/19/19 Band Saw Runner Relationship Specialty Start Date End Date SladeShanna CNP [address] [place] [address] PCP - General Family Practice 01/31/20 Antelmo Davey MD [address] [facility] [place] [address] (Fax) 09/25/19 [place] [address] [place] [address] Consulting General Surgery 09/25/19 Shanna June CNP [address] [place] [address] Referring Family Practice 10/19/19 Band Saw Runner Relationship Specialty Start Date End Date Shanna Jnue, RADIOCOMMUNICATIONS TECHNICIAN [address] [place] [address] PCP - General Family Practice 01/31/20 Antelmo Davey MD [address] [facility] [place] [address] (Fax) 09/25/19 [place] [address] [place] [address] Consulting General Surgery 09/25/19 SladeShanna, RADIOCOMMUNICATIONS TECHNICIAN [address] [place] [address] Referring Family Practice 10/19/19 Band Saw Runner Relationship Specialty Start Date End Date SladeShannaBETH [address] [place] [address] PCP - General Family Practice 01/31/20 Antelmo Davey MD [address] [facility] [place] [address] (Fax) 09/25/19 [place] [address] [place] [address] Consulting General Surgery 09/25/19 Shanna June CNP [address] [place] [address] Referring Family Practice 10/19/19 Band Saw Runner Relationship Specialty Start Date End Date SladeDenverShannaBETH tomlin [address] [place] [address] PCP - General Family Practice 01/31/20 Antelmo Davey MD [address] [place] [address] (Fax) 09/25/19 [place] [address] [place] [address] Consulting General Surgery 09/25/19 Shanna June CNP [address] [place] [address] Referring Family Practice 10/19/19 Band Saw Runner Relationship Specialty Start Date End Date Shanna June CNP [address] [place] [address] PCP - General Family Practice 01/31/20 Antelmo Davey MD [address] [facility] [place] [address] 09/25/19 [place] [address] [place] [address] Consulting General Surgery 09/25/19 Shanna June CNP [address] [place] [address] Referring Family Practice 10/19/19 Band Saw Runner Relationship Specialty Start Date End Date Wally Foley [address] [facility] [place] [address] PCP - General Specialist 07/27/21 Band Saw Runner Relationship Specialty Start Date End Date Shanna June CNP [address] [place] [address] PCP - General Family Practice 01/31/20 Antelmo Davey MD [address] [facility] [place] [address] (Fax) 09/25/19 [place] [address] [place] [address] Consulting General Surgery 09/25/19 Shanna June CNP [address] [place] [address] Referring Family Practice 10/19/19 Band Saw Runner Relationship Specialty Start Date End Date Shanna June CNP [address] [place] [address] PCP - General Family Practice 01/31/20 Antelmo Davey MD [address] [facility] [place] [address] (Fax) 09/25/19 [place] [address] [place] [address] Consulting General Surgery 09/25/19 Shanna June CNP [address] [place] [address] Referring Family Practice 10/19/19 Band Saw Runner Relationship Specialty Start Date End Date Shanna June CNP [address] [place] [address] PCP - General Family Practice 01/31/20 Antelmo Davey MD [address] [facility] [place] [address] (Fax) 09/25/[address] [place] [address] [facility] [place] [address] Consulting General Surgery 09/25/19 Shanna June CNP [address] [place] [address] Referring Family Practice 10/19/19 Band Saw Runner Relationship Specialty Start Date End Date Shanna June CNP [address] [place] [address] PCP - General Family Practice 01/31/20 Antelmo Davey MD [address] [facility] [place] [address] (Fax) 09/25/19 [place] [address] [place] [address] Consulting General Surgery 09/25/19 SladeDenverShannaBETH tomlin [address] [place] [address] Referring Family Practice 10/19/19 Band Saw Runner Relationship Specialty Start Date End Date SladeDenverShannaBETH tomlin [address] [place] [address] PCP - General Family Medicine 01/31/20 Antelmo Davey MD [address] [place] [address] (Fax) 09/25/[address] [place] [address] [facility] [place] [place] [address] Consulting General Surgery 09/25/19 Shanna June CNP [address] [place] [address] Referring Family Medicine 10/19/19 Band Saw Runner Relationship Specialty Start Date End Date SladeDenverShannaBETH tomlin [address] [place] [address] PCP - General Family Medicine 01/31/20 Antelmo Davey MD [address] [facility] [place] [address] (Fax) 09/25/19 [place] [address] [place] [address] Consulting General Surgery 09/25/19 Shanna June CNP [address] [place] [address] Referring Family Medicine 10/19/19 Band Saw Runner Relationship Specialty Start Date End Date Shanna June CNP [address] [place] [address] PCP - General Family Medicine 01/31/20 Antelmo Davey MD [address] [facility] [place] [address] (Fax) 09/25/19 [place] [address] [place] [address] Consulting General Surgery 09/25/19 Shanna June, RADIOCOMMUNICATIONS TECHNICIAN [address] [place] [address] Referring Family Medicine 10/19/19 Band Saw Runner Relationship Specialty Start Date End Date Shanna June CNP [address] [place] [address] PCP - General Family Medicine 01/31/20 Antelmo Davey MD [address] [facility] [place] [address] (Fax) 09/25/19 [place] [address] [place] [address] Consulting General Surgery 09/25/19 SladeDenyie, RADIOCOMMUNICATIONS TECHNICIAN [address] [place] [address] Referring Family Medicine 10/19/19 Band Saw Runner Relationship Specialty Start Date End Date SladeShanna CNP [address] [place] [address] PCP - General Family Medicine 01/31/20 Antelmo Davey MD [address] [facility] [place] [address] (Fax) 09/25/19 [place] [address] [place] [address] Consulting General Surgery 09/25/19 Slade Shanna, RADIOCOMMUNICATIONS TECHNICIAN [address] [place] [address] Referring Family Medicine 10/19/19 Band Saw Runner Relationship Specialty Start Date End Date SladeShanna, RADIOCOMMUNICATIONS TECHNICIAN [address] [place] [address] PCP - General Family Medicine 01/31/20 Antelmo Davey MD [address] [place] [address] (Fax) 09/25/19 [place] [address] [place] [address] Consulting General Surgery 09/25/19 Shanna June CNP [address] [place] [address] Referring Family Medicine 10/19/19 Band Saw Runner Relationship Specialty Start Date End Date SladeDenverShannaBETH tomlin [address] [place] [address] PCP - General Family Medicine 01/31/20 Antelmo Davey MD [address] [place] [address] (Fax) 09/25/19 [place] [address] [place] [address] Consulting General Surgery 09/25/19 Shanna June CNP [address] [place] [address] Referring Family Medicine 10/19/19 Band Saw Runner Relationship Specialty Start Date End Date Shanna June CNP [address] [place] [address] PCP - General Family Medicine 01/31/20 Antelmo Davey MD [address] [place] [address] (Fax) 09/25/19 [place] [address] [place] [address] Consulting General Surgery 09/25/19 Shanna June CNP [address] [place] [address] Referring Family Medicine 10/19/19 Band Saw Runner Relationship Specialty Start Date End Date Shanna June CNP [address] [place] [address] PCP - General Family Medicine 01/31/20 Antelmo Davey MD [address] [place] [address] (Fax) 09/25/19 [place] [address] [place] [address] Consulting General Surgery 09/25/19 Shanna June CNP [address] [place] [address] Referring Family Medicine 10/19/19 Band Saw Runner Relationship Specialty Start Date End Date Shanna June CNP [address] [place] [address] PCP - General Family Medicine 01/31/20 Antelmo Davey MD [address] [facility] [place] [address] (Fax) 09/25/19 [place] [address] [place] [address] Consulting General Surgery 09/25/19 Shanna June, RADIOCOMMUNICATIONS TECHNICIAN [address] [place] [address] Referring Family Medicine 10/19/19 Band Saw Runner Relationship Specialty Start Date End Date Shanna June, RADIOCOMMUNICATIONS TECHNICIAN [address] [place] [address] PCP - General Family Medicine 01/31/20 Antelmo Davey MD [address] [facility] [place] [address] (Fax) 09/25/[address] [place] [address] [facility] [place] [address] Consulting General Surgery 09/25/19 Shanna June, RADIOCOMMUNICATIONS TECHNICIAN [address] [place] [address] Referring Family Medicine 10/19/19 Band Saw Runner Relationship Specialty Start Date End Date Shanna June, RADIOCOMMUNICATIONS TECHNICIAN [address] [place] [address] PCP - General Family Medicine 01/31/20 Antelmo Davey MD [address] [facility] [place] [address] (Fax) 09/25/[address] [place] [address] [facility] [place] [address] Consulting General Surgery 09/25/19 Shanna June, RADIOCOMMUNICATIONS TECHNICIAN [address] [place] [address] Referring Family Medicine 10/19/19 Band Saw Runner Relationship Specialty Start Date End Date Wally Foley MD [address] [place] [address] PCP - General Family Medicine 01/19/22 Antelmo Davey MD [address] [place] [address] (Fax) 09/25/19 [place] [address] [place] [address] Consulting General Surgery 09/25/19 Shanna June, RADIOCOMMUNICATIONS TECHNICIAN [address] [place] [address] Referring Family Medicine 10/19/19 Band Saw Runner Relationship Specialty Start Date End Date Wally Foley MD [address] [place] [address] PCP - General Family Medicine 01/19/22 Antelmo Davey MD [address] [facility] [place] [address] (Fax) 09/25/[address] [place] [address] [facility] [place] [address] Consulting General Surgery 09/25/19 Shanna June, RADIOCOMMUNICATIONS TECHNICIAN [address] [place] [address] Referring Family Medicine 10/19/19 Band Saw Runner Relationship Specialty Start Date End Date Wally Foley MD [address] [place] [address] PCP - General Family Medicine 01/19/22 Antelmo Davey MD [address] [place] [address] (Fax) 09/25/19 [place] [address] [place] [address] Consulting General Surgery 09/25/19 Shanna June, RADIOCOMMUNICATIONS TECHNICIAN [address] [place] [address] Referring Family Medicine 10/19/19 Band Saw Runner Relationship Specialty Start Date End Date Wally Foley MD [address] [place] [address] PCP - General Family Medicine 01/19/22 Antelmo Davey MD [address] [place] [address] (Fax) 09/25/[address] [place] [address] [facility] [place] [place] [address] Consulting General Surgery 09/25/19 Shanna June, RADIOCOMMUNICATIONS TECHNICIAN [address] [place] [address] Referring Family Medicine 10/19/19 Band Saw Runner Relationship Specialty Start Date End Date Wally Foley MD [address] [place] [address] PCP - General Family Medicine 01/19/22 Antelmo Davey MD [address] [place] [address] (Fax) 09/25/19 [place] [address] [place] [address] Consulting General Surgery 09/25/19 Shanna June, RADIOCOMMUNICATIONS TECHNICIAN [address] [place] [address] Referring Family Medicine 10/19/19 Band Saw Runner Relationship Specialty Start Date End Date Wally Foley MD [address] [place] [address] PCP - General Family Medicine 01/19/22 Antelmo Davey MD [address] [place] [address] 09/25/19 [place] [address] [place] [address] Consulting General Surgery 09/25/19 Shanna June, RADIOCOMMUNICATIONS TECHNICIAN [address] [place] [address] Referring Family Medicine 10/19/19 Band Saw Runner Relationship Specialty Start Date End Date Wally Foley MD [address] [place] [address] PCP - General Family Medicine 01/19/22 Antelmo Davey MD [address] [place] [address] (Fax) 09/25/[address] [place] [address] [facility] [place] [address] Consulting General Surgery 09/25/19 Shanna June, RADIOCOMMUNICATIONS TECHNICIAN [address] [place] [address] Referring Family Medicine 10/19/19 Band Saw Runner Relationship Specialty Start Date End Date Wally Foley MD [address] [place] [address] PCP - General Family Medicine 01/19/22 Antelmo Davey MD [address] [facility] [place] [address] (Fax) 09/25/[address] [place] [address] [facility] [place] [address] Consulting General Surgery 09/25/19 Shanna June, RADIOCOMMUNICATIONS TECHNICIAN [address] [place] [address] Referring Family Medicine 10/19/19 Band Saw Runner Relationship Specialty Start Date End Date Wally Foley MD [address] [place] [place] [place] [address] PCP - General Family Medicine 01/19/22 Antelmo Davey MD [address] [facility] [place] [address] (Fax) 09/25/[address] [place] [address] [facility] [place] [place] [address] Consulting General Surgery 09/25/19 Shanna June CNP [address] [place] [address] Referring Family Medicine 10/19/19 Band Saw Runner Relationship Specialty Start Date End Date Wally Foley MD [address] [place] [address] PCP - General Family Medicine 01/19/22 Antelmo Davey MD [address] [place] [address] (Fax) 09/25/19 [place] [address] [place] [address] Consulting General Surgery 09/25/19 Shanna June, RADIOCOMMUNICATIONS TECHNICIAN [address] [place] [address] Referring Family Medicine 10/19/19 Band Saw Runner Relationship Specialty Start Date End Date Wally Foley MD [address] [place] [address] PCP - General Family Medicine 01/19/22 Antelmo Davey MD [address] [place] [address] (Fax) 09/25/19 [place] [address] [place] [address] Consulting General Surgery 09/25/19 Shanna June, RADIOCOMMUNICATIONS TECHNICIAN [address] [place] [address] Referring Family Medicine 10/19/19 Band Saw Runner Relationship Specialty Start Date End Date Wally Foley MD [address] [place] [address] PCP - General Family Medicine 01/19/22 Antelmo Davey MD [address] [place] [address] 09/25/19 [place] [address] [place] [address] Consulting General Surgery 09/25/19 Shanna June, RADIOCOMMUNICATIONS TECHNICIAN [address] [place] [address] Referring Family Medicine 10/19/19 Agustin Valentino [address] [facility] [address] [place] [address] Referring Family Medicine 05/13/22 Band Saw Runner Relationship Specialty Start Date End Date Jaquan Morrow [address] [place] [address] PCP - General 06/16/22 Antelmo Davey MD [address] [place] [address] 09/25/19 [place] [address] [place] [address] Consulting General Surgery 09/25/19 Shanna June, RADIOCOMMUNICATIONS TECHNICIAN [address] [place] [address] Referring Family Medicine 10/19/19 Agustin Valentino [address] [place] [address] Referring Family Medicine 05/13/22 Band Saw Runner Relationship Specialty Start Date End Date Jaquan Morrow [address] [place] [address] PCP - General 06/16/22 Antelmo Davey MD [address] [place] [address] 09/25/19 [place] [address] [place] [address] Consulting General Surgery 09/25/19 Shanna June, RADIOCOMMUNICATIONS TECHNICIAN [address] [place] [address] Referring Family Medicine 10/19/19 Agustin Valentino [address] [facility] [address] [place] [address] Referring Family Medicine 05/13/22 Band Saw Runner Relationship Specialty Start Date End Date CristhianJaquan hendricks [address] [place] [address] PCP - General 06/16/22 Antelmo Davey MD [address] [place] [address] 09/25/19 [place] [address] [place] [address] Consulting General Surgery 09/25/19 Shanna June, RADIOCOMMUNICATIONS TECHNICIAN [address] [place] [address] Referring Family Medicine 10/19/19 Agustin Valentino [address] [facility] [address] [place] [address] Referring Family Medicine 05/13/22 Band Saw Runner Relationship Specialty Start Date End Date Cristhian, Jaquan [address] [place] [address] PCP - General 06/16/22 Antelmo Davey MD [address] [place] [address] 09/25/19 [place] [address] [place] [address] Consulting General Surgery 09/25/19 Shanna June, RADIOCOMMUNICATIONS TECHNICIAN [address] [place] [address] Referring Family Medicine 10/19/19 Agustin Valentino [address] [facility] [facility] [address] [place] [address] Referring Family Medicine 05/13/22 Band Saw Runner Relationship Specialty Start Date End Date Jaquan Morrow [address] [place] [address] PCP - General 06/16/22 Antelmo Davey MD [address] [place] [address] 09/25/19 [place] [address] [place] [address] Consulting General Surgery 09/25/19 Shanna June, RADIOCOMMUNICATIONS TECHNICIAN [address] [place] [address] Referring Family Medicine 10/19/19 Agustin Valentino 112 [facility] [address] [place] [address] Referring Family Medicine 05/13/22 Band Saw Runner Relationship Specialty Start Date End Date Jaquan Morrow [address] [place] [address] PCP - General 06/16/22 Antelmo Davey MD [address] [place] [address] 09/25/19 [place] [address] [place] [address] Consulting General Surgery 09/25/19 Shanna June, RADIOCOMMUNICATIONS TECHNICIAN [address] [place] [address] Referring Family Medicine 10/19/19 Agustin Valentino [address] [place] [address] [place] [address] Referring Family Medicine 05/13/22 Band Saw Runner Relationship Specialty Start Date End Date Jaquan Morrow [address] [place] [address] [facility] - General 06/16/22 Antelmo Davey MD [address] [place] [address] 09/25/19 [place] [address] [place] [address] Consulting General Surgery 09/25/19 Shanna June, RADIOCOMMUNICATIONS TECHNICIAN [address] [place] [address] Referring Family Medicine 10/19/19 Agustin Valentino [address] [place] [facility] 150 [place] [address] Referring Family Medicine 05/13/22 Band Saw Runner Relationship Specialty Start Date End Date Jaquan Morrow [address] [place] [address] PCP - General 06/16/22 Antelmo Davey MD [address] [place] [address] (Fax) 09/25/19 [place] [address] [place] [address] Consulting General Surgery 09/25/19 Shanna June, RADIOCOMMUNICATIONS TECHNICIAN [address] [place] [address] Referring Family Medicine 10/19/19 Agustin Valentino [address] [address] [place] [address] Referring Family Medicine 05/13/22 Band Saw Runner Relationship Specialty Start Date End Date Jaquan Morrow [address] [place] [address] PCP - General 06/16/22 Antelmo Davey MD [address] [place] [address] (Fax) 09/25/19 [place] [address] [place] [address] Consulting General Surgery 09/25/19 Shanna June, RADIOCOMMUNICATIONS TECHNICIAN [address] [place] [address] Referring Family Medicine 10/19/19 Agustin Valentino [address] [place] [address] Referring Family Medicine 05/13/22 Band Saw Runner Relationship Specialty Start Date End Date Jaquan Morrow [address] [place] [address] PCP - General 06/16/22 Antelmo Davey MD [address] [place] [address] (Fax) 09/25/19 [place] [address] [place] [address] Consulting General Surgery 09/25/19 Shanna June, BETH [address] [place] [address] Referring Family Medicine 10/19/19 Agustin Valentino [address] [place] [address] Referring Family Medicine 05/13/22 Band Saw Runner Relationship Specialty Start Date End Date Jaquan Morrow [address] [place] [address] PCP - General 06/16/22 Antelmo Davey MD [address] [place] [address] (Fax) 09/25/19 [place] [address] [place] [address] Consulting General Surgery 09/25/19 Shanna June, RADIOCOMMUNICATIONS TECHNICIAN [address] [place] [address] Referring Family Medicine 10/19/19 Agustin Valentino 112 [facility] [place] [address] Referring Family Medicine 05/13/22 Band Saw Runner Relationship Specialty Start Date End Date Jaquan Morrow [address] [place] [address] PCP - General 06/16/22 Antelmo Davey MD [address] [place] [address] (Fax) 09/25/19 [place] [address] [place] [address] Consulting General Surgery 09/25/19 Shanna June CNP [address] [place] [address] Referring Family Medicine 10/19/19 Agustin Valentino 112 [facility] [place] [address] Referring Family Medicine 05/13/22 Band Saw Runner Relationship Specialty Start Date End Date Jaquan Morrow [address] [place] [address] PCP - General 06/16/22 Antelmo Davey MD [address] [place] [address] (Fax) 09/25/19 [place] [address] [place] [address] Consulting General Surgery 09/25/19 Shanna June CNP [address] [place] [address] Referring Family Medicine 10/19/19 Agustin Valentino PA [address] [facility] 150 [place] [address] Referring Family Medicine 05/13/22 Band Saw Runner Relationship Specialty Start Date End Date Jaquan Morrow [address] [place] [address] PCP - General 06/16/22 Antelmo Davey MD [address] [place] [address] (Fax) 09/25/19 [place] [address] [place] [address] Consulting General Surgery 09/25/19 Shanna June CNP [address] [place] [address] Referring Family Medicine 10/19/19 Agustin Valentino PA [address] [place] [address] Referring Family Medicine 05/13/22 Band Saw Runner Relationship Specialty Start Date End Date Wally Foley [address] [place] [address] PCP - General Specialist 07/27/21 Band Saw Runner Relationship Specialty Start Date End Date Shanna June FNP [address] [place] [address] PCP - General Nurse Practitioner - Family 01/30/20 Band Saw Runner Relationship Specialty Start Date End Date Jaquan Morrow [address] [place] [address] PCP - General 06/16/22 Antelmo Davey MD [address] [place] [address] (Fax) 09/25/19 [place] [address] [place] [address] Consulting General Surgery 09/25/19 Shanna June CNP [address] [place] [address] Referring Family Medicine 10/19/19 Agustin Valentino PA [address] [address] [place] [address] Referring Family Medicine 05/13/22 Band Saw Runner Relationship Specialty Start Date End Date Jaquan Morrow [address] [place] [address] PCP - General 06/16/22 Antelmo Davey MD [address] [place] [address] 09/25/19 [place] [address] [place] [address] Consulting General Surgery 09/25/19 Shanna June, BETH [address] [place] [address] Referring Family Medicine 10/19/19 Agustin Valentino PA [address] [facility] [address] [place] [address] Referring Family Medicine 05/13/22 Band Saw Runner Relationship Specialty Start Date End Date Jaquan Morrow [address] [place] [address] PCP - General 06/16/22 Antelmo Davey MD [address] [place] [address] 09/25/19 [place] [address] [place] [address] Consulting General Surgery 09/25/19 Shanna June, BETH [address] [place] [address] Referring Family Medicine 10/19/19 Agustin Valentino PA [address] [facility] [place] [address] Referring Family Medicine 05/13/22 Band Saw Runner Relationship Specialty Start Date End Date Jaquan Morrow [address] [place] [address] PCP - General 06/16/22 Antelmo Davey MD [address] [place] [address] (Fax) 09/25/19 [place] [address] [place] [address] Consulting General Surgery 09/25/19 Shanna June, BETH [address] [place] [address] Referring Family Medicine 10/19/19 Agustin Valentino PA [address] [address] [place] [address] Referring Family Medicine 05/13/22 Band Saw Runner Relationship Specialty Start Date End Date Jaquan Morrow [address] [place] [address] PCP - General 06/16/22 Antelmo Davey MD [address] [place] [address] (Fax) 09/25/19 [place] [address] [place] [address] Consulting General Surgery 09/25/19 Shanna June, BETH [address] [place] [address] Referring Family Medicine 10/19/19 Agustin Valentino PA [address] [place] [address] Referring Family Medicine 05/13/22 Band Saw Runner Relationship Specialty Start Date End Date Linda Morrowdi [address] [place] [address] PCP - General 06/16/22 Antelmo Davey MD [address] [facility] [place] [address] (Fax) 09/25/19 [place] [address] [place] [address] Consulting General Surgery 09/25/19 Shanna June, BETH [address] [place] [address] Referring Family Medicine 10/19/19 Agustin Valentino PA [address] [place] [address] [place] [address] Referring Family Medicine 05/13/22 Band Saw Runner Relationship Specialty Start Date End Date Linda Morrowdi [address] [place] [address] PCP - General 06/16/22 Antelmo Davey MD [address] [place] [address] (Fax) 09/25/19 [place] [address] [place] [address] Consulting General Surgery 09/25/19 Shanna June, BETH [address] [place] [address] Referring Family Medicine 10/19/19 Agustin Valentino PA [address] [facility] [address] [place] [address] Referring Family Medicine 05/13/22 Band Saw Runner Relationship Specialty Start Date End Date Jaquan Morrow [address] [place] [address] PCP - General 06/16/22 Antelmo Davey MD [address] [place] [address] (Fax) 09/25/19 [place] [address] [place] [address] Consulting General Surgery 09/25/19 Shanna June CNP [address] [place] [address] Referring Family Medicine 10/19/19 Agustin Valentino PA [address] [facility] [place] [address] Referring Family Medicine 05/13/22 Band Saw Runner Relationship Specialty Start Date End Date Jaquan Morrow [address] [place] [address] PCP - General 06/16/22 Antelmo Davey MD [address] [place] [address] (Fax) 09/25/19 [place] [address] [place] [address] Consulting General Surgery 09/25/19 Shanna June, BETH [address] [place] [address] Referring Family Medicine 10/19/19 Agustin Valentino PA [address] [facility] [address] [place] [address] Referring Family Medicine 05/13/22 Band Saw Runner Relationship Specialty Start Date End Date Jaquan Morrow [address] [place] [address] PCP - General 06/16/22 Antelmo Davey MD [address] [place] [address] (Fax) 09/25/19 [place] [address] [place] [address] Consulting General Surgery 09/25/19 Shanna June, BETH [address] [place] [address] Referring Family Medicine 10/19/19 Agustin Valentino PA [address] [facility] [place] [address] Referring Family Medicine 05/13/22 Band Saw Runner Relationship Specialty Start Date End Date Jaquan Morrow [address] [place] [address] PCP - General 06/16/22 Antelmo Davey MD [address] [place] [address] (Fax) 09/25/19 [place] [address] [place] [address] Consulting General Surgery 09/25/19 Shanna June, RADIOCOMMUNICATIONS TECHNICIAN [address] [place] [address] Referring Family Medicine 10/19/19 Agustin Valentino PA [address] [address] [place] [address] Referring Family Medicine 05/13/22 Band Saw Runner Relationship Specialty Start Date End Date Jaquan Morrow [address] [place] [address] PCP - General 06/16/22 Antelmo Davey MD [address] [place] [address] (Fax) 09/25/19 [place] [address] [place] [address] Consulting General Surgery 09/25/19 Shanna June, RADIOCOMMUNICATIONS TECHNICIAN [address] [place] [address] Referring Family Medicine 10/19/19 Agustin Valentino PA [address] [address] [place] [address] Referring Family Medicine 05/13/22 Band Saw Runner Relationship Specialty Start Date End Date Linda Morrowdi [address] [place] [address] PCP - General 06/16/22 Antelmo Davey MD [address] [place] [address] (Fax) 09/25/19 [place] [address] [place] [address] Consulting General Surgery 09/25/19 Shanna June, RADIOCOMMUNICATIONS TECHNICIAN [address] [place] [address] Referring Family Medicine 10/19/19 Agustin Valentino PA [address] [place], [place] [address] [address] Referring Family Medicine 05/13/22 Band Saw Runner Relationship Specialty Start Date End Date Cristhian, Jaquan [address] [place] [address] PCP - General 06/16/22 Antelmo Davey MD [address] [place] [address] (Fax) 09/25/19 [place] [address] [place] [address] Consulting General Surgery 09/25/19 Shanna June, BETH [address] [place] [address] Referring Family Medicine 10/19/19 Agustin Valentino PA [address] [address] [place] [address] Referring Family Medicine 05/13/22 Band Saw Runner Relationship Specialty Start Date End Date Jaquan Morrow [address] [place] [address] PCP - General 06/16/22 Antelmo Davey MD [address] [place] [address] (Fax) 09/25/19 [place] [address] [place] [address] Consulting General Surgery 09/25/19 Shanna June CNP [address] [place] [address] Referring Family Medicine 10/19/19 Agustin Valentino PA [address] [facility] [place] [address] Referring Family Medicine 05/13/22 Band Saw Runner Relationship Specialty Start Date End Date Jaquan Morrow [address] [place] [address] PCP - General 06/16/22 Antelmo Davey MD [address] [place] [address] (Fax) 09/25/19 [place] [address] [place] [address] Consulting General Surgery 09/25/19 Shanna June, BETH [address] [place] [address] Referring Family Medicine 10/19/19 Agustin Valentino PA [address] [facility] [address] [place] [address] Referring Family Medicine 05/13/22 Band Saw Runner Relationship Specialty Start Date End Date Jaquan Morrow [address] [place] [address] PCP - General 06/16/22 Antelmo Davey MD [address] [place] [address] (Fax) 09/25/19 [place] [address] [place] [address] Consulting General Surgery 09/25/19 Shanna June, BETH [address] [place] [address] Referring Family Medicine 10/19/19 Agustin Valentino PA [address] [address] [place] [address] Referring Family Medicine 05/13/22 Band Saw Runner Relationship Specialty Start Date End Date Jaquan Morrow [address] [place] [address] PCP - General 06/16/22 Antelmo Davey MD [address] [place] [address] 09/25/19 [place] [address] [place] [address] Consulting General Surgery 09/25/19 Shanna June, RADIOCOMMUNICATIONS TECHNICIAN [address] [place] [address] Referring Family Medicine 10/19/19 Agustin Valentino PA [address] [facility] [address] [place] [address] Referring Family Medicine 05/13/22 Band Saw Runner Relationship Specialty Start Date End Date Jaquan Morrow [address] [place] [address] PCP - General 06/16/22 Antelmo Davey MD [address] [facility] [place] [address] 09/25/19 [place] [address] [place] [address] Consulting General Surgery 09/25/19 Shanna June, RADIOCOMMUNICATIONS TECHNICIAN [address] [place] [address] Referring Family Medicine 10/19/19 Agustin Valentino PA [address] [address] [place] [address] Referring Family Medicine 05/13/22 Band Saw Runner Relationship Specialty Start Date End Date Jaquan Morrow [address] [place] [address] PCP - General 06/16/22 Antelmo Davey MD [address] [place] [address] (Fax) 09/25/19 [place] [address] [place] [address] Consulting General Surgery 09/25/19 Shanna June CNP [address] [place] [address] Referring Family Medicine 10/19/19 Agustin Valentino PA [address] [place] [address] Referring Family Medicine 05/13/22 Band Saw Runner Relationship Specialty Start Date End Date Jaquan Morrow, AMMONIA SOLUTION PREPARER.RADIOCOMMUNICATIONS TECHNICIAN [address] [place] [address] PCP - General 06/16/22 Antelmo Davey MD [address] [place] [address] 09/25/19 [place] [address] [place] [address] Consulting General Surgery 09/25/19 Shanna June CNP [address] [place] [address] Referring Family Medicine 10/19/19 Agustin Valentino PA [address] [facility] [address] [place] [address] Referring Family Medicine 05/13/22 Band Saw Runner Relationship Specialty Start Date End Date Jaquan Morrow, AMMONIA SOLUTION PREPARER.RADIOCOMMUNICATIONS TECHNICIAN [address] [place] [address] PCP - General 06/16/22 Antelmo Davey MD [address] [place] [address] (Fax) 09/25/19 [place] [address] [place] [address] Consulting General Surgery 09/25/19 Shanna June, BETH [address] [place] [address] Referring Family Medicine 10/19/19 Agustin Valentino PA [address] [address] Referring Family Medicine 05/13/22 Band Saw Runner Relationship Specialty Start Date End Date Jaquan Morrow, AMMONIA SOLUTION PREPARER.RADIOCOMMUNICATIONS TECHNICIAN [address] [place] [address] PCP - General 06/16/22 Antelmo Davey MD [address] [facility] [place] [address] (Fax) 09/25/19 [place] [address] [place] [address] Consulting General Surgery 09/25/19 Shanna June CNP [address] [place] [address] Referring Family Medicine 10/19/19 Agustin Valentino, PA [address] [facility] [address] [place] [address] Referring Family Medicine 05/13/22 Band Saw Runner Relationship Specialty Start Date End Date Jaquan Morrow, AMMONIA SOLUTION PREPARER.RADIOCOMMUNICATIONS TECHNICIAN [address] [place] [address] PCP - General 06/16/22 Antelmo Davey MD [address] [place] [address] 09/25/19 [place] [address] [place] [address] Consulting General Surgery 09/25/19 Shanna June CNP [address] [place] [address] Referring Family Medicine 10/19/19 Agustin Valentino PA [address] [address] [place] [address] Referring Family Medicine 05/13/22 Band Saw Runner Relationship Specialty Start Date End Date Jaquan Morrow AMMONIA SOLUTION PREPARER.RADIOCOMMUNICATIONS TECHNICIAN [address] [place] [address] PCP - General 06/16/22 Antelmo Davey MD [address] [facility] [place] [address] 09/25/19 [place] [address] [place] [address] Consulting General Surgery 09/25/19 Shanna June, BETH [address] [place] [address] Referring Family Medicine 10/19/19 Agustin Valentino PA [address] [address] [place] [address] Referring Family Medicine 05/13/22 Team Status: Active Member Role Status Dates Jaquan Morrow NP-Elroy Primary Care Provider Active Team Status: Inactive Member Role Status Dates Jaquan Morrow NP-C Primary Care Provider Active Claus Obrien DO Emergency Provider Active Roseline Mejia DO RES Active Band Saw Runner Relationship Specialty Start Date End Date Generic Provider, No Assigned MD Gabe [address] [place] [address] PCP - General Family Medicine 01/02/23 Band Saw Runner Relationship Specialty Start Date End Date Generic Provider, No Assigned PcpMD [address] [place] [address] PCP - General Family Medicine 01/02/23 Team Status: Inactive Member Role Status Dates Jaquan Morrow NP-C Primary Care Provider Active Start: February 13, 2023 End: February 13, 2023 Clasu Obrien DO Emergency Provider Active Start: February 13, 2023 End: February 13, 2023 Roseline Mejia DO RES Active Start : February 13, 2023 End: February 13, 2023 Team Status: Inactive Member Role Status Dates PAO Morales Primary Care Provider Active Start: April 06, 2023 End: April 06, 2023 SOURAV SyP- Emergency Provider Active Start: April 06, 2023 End: April 06, 2023 Band Saw Runner Relationship Specialty Start Date End Date Generic Provider, No Assigned PcpMD [address] [place] [address] PCP - General Family Medicine 01/02/23 Band Saw Runner Relationship Specialty Start Date End Date Jaquan Morrow, AMMONIA SOLUTION PREPARER.RADIOCOMMUNICATIONS TECHNICIAN [address] [place] [address] PCP - General 06/16/22 Antelmo Davey MD [address] [place] [address] 09/25/19 [place] [address] [place] [address] Consulting General Surgery 09/25/19 Shanna June CNP [address] [place] [address] Referring Family Medicine 10/19/19 Agustin Valentino PA [address] [address] Referring Family Medicine 05/13/22 Band Saw Runner Relationship Specialty Start Date End Date Generic Provider, No Assigned PcpMD [address] [place] [address] PCP - General Family Medicine 01/02/23 Band Saw Runner Relationship Specialty Start Date End Date Jaquan Morrow, AMMONIA SOLUTION PREPARER.RADIOCOMMUNICATIONS TECHNICIAN [address] [place] [address] PCP - General 06/16/22 Antelmo Davey MD [address] [place] [address] (Fax) 09/25/19 [place] [address] [place] [address] Consulting General Surgery 09/25/19 Shanna June, RADIOCOMMUNICATIONS TECHNICIAN [address] [place] [address] Referring Family Medicine 10/19/19 Agustin Valentino PA [address] [facility] [address] [place] [address] Referring Family Medicine 05/13/22 Band Saw Runner Relationship Specialty Start Date End Date Jaquan Morrow, AMMONIA SOLUTION PREPARER.RADIOCOMMUNICATIONS TECHNICIAN [address] [place] [address] PCP - General 06/16/22 Antelmo Davey MD [address] [facility] [place] [address] 09/25/19 [place] [address] [place] [address] Consulting General Surgery 09/25/19 Shanna June, RADIOCOMMUNICATIONS TECHNICIAN [address] [place] [address] Referring Family Medicine 10/19/19 Agustin Valentino PA [address] [facility] [address] [place] [address] Referring Family Medicine 05/13/22 Band Saw Runner Relationship Specialty Start Date End Date Jaquan Morrow, AMMONIA SOLUTION PREPARER.RADIOCOMMUNICATIONS TECHNICIAN [address] [place] [address] PCP - General 06/16/22 Antelmo Davey MD [address] [place] [address] (Fax) 09/25/19 [place] [address] [place] [address] Consulting General Surgery 09/25/19 Shanna June CNP [address] [place] [address] Referring Family Medicine 10/19/19 Agustin Valentino PA [address] [place], [place] [address] [address] Referring Family Medicine 05/13/22 Band Saw Runner Relationship Specialty Start Date End Date Jaquan Morrow, AMMONIA SOLUTION PREPARER.RADIOCOMMUNICATIONS TECHNICIAN [address] [place] [address] PCP - General 06/16/22 Antelmo Davey MD [address] [place] [address] 09/25/19 [place] [address] [place] [address] Consulting General Surgery 09/25/19 Shanna June, RADIOCOMMUNICATIONS TECHNICIAN [address] [place] [address] Referring Family Medicine 10/19/19 Agustin Valentino PA [address] [facility] [address] [place] [address] Referring Family Medicine 05/13/22 Band Saw Runner Relationship Specialty Start Date End Date Jaquan Morrow, AMMONIA SOLUTION PREPARER.RADIOCOMMUNICATIONS TECHNICIAN [address] [place] [address] PCP - General 06/16/22 Antelmo Davey MD [address] [place] [address] 09/25/19 [place] [address] [place] [address] Consulting General Surgery 09/25/19 Shanna June, RADIOCOMMUNICATIONS TECHNICIAN [address] [place] [address] Referring Family Medicine 10/19/19 Agustin Valentino PA [address] [facility] [address] [place] [address] Referring Family Medicine 05/13/22 Band Saw Runner Relationship Specialty Start Date End Date Generic Provider, No Assigned PcpMD PCP - General Family Medicine 01/02/23 Band Saw Runner Relationship Specialty Start Date End Date Jaquan Morrow, AMMONIA SOLUTION PREPARER.RADIOCOMMUNICATIONS TECHNICIAN [address] [place] [address] PCP - General 06/16/22 Antelmo Davey MD [address] [place] [address] 09/25/[address] [place] [address] [address] [facility] [place] [address] Consulting General Surgery 09/25/19 Shanna June CNP [address] [place] [address] Referring Family Medicine 10/19/19 Agustin Valentino PA [address] [address] Referring Family Medicine 05/13/22 Band Saw Runner Relationship Specialty Start Date End Date Generic Provider, [place] [address] PCP - General Director Of Graduate Medical Education 06/29/23 Band Saw Runner Relationship Specialty Start Date End Date Generic Provider, [place] [address] PCP - General Director Of Graduate Medical Education 06/29/23 Band Saw Runner Relationship Specialty Start Date End Date Jaquan Morrow, AMMONIA SOLUTION PREPARER.RADIOCOMMUNICATIONS TECHNICIAN [address] [place] [address] PCP - General 06/16/22 Antelmo Davey MD [address] [place] [address] 09/25/[address] [place] [address] [address] [place] [address] Consulting General Surgery 09/25/19 Shanna June, BETH [address] [place] [address] Referring Family Medicine 10/19/19 Agustin Valentino PA [address] [facility] [address] [place] [address] Referring Family Medicine 05/13/22 Band Saw Runner Relationship Specialty Start Date End Date Jaquan Morrow, AMMONIA SOLUTION PREPARER.RADIOCOMMUNICATIONS TECHNICIAN [address] [place] [address] PCP - General 06/16/22 Antelmo Davey MD [address] [place] [address] 09/25/19 [place] [address] [place] [address] Consulting General Surgery 09/25/19 Shanna June, BETH [address] [place] [address] Referring Family Medicine 10/19/19 Agustin Valentino, PA [address] [address] [place] [address] Referring Family Medicine 05/13/22 Band Saw Runner Relationship Specialty Start Date End Date Jaquan Morrow, AMMONIA SOLUTION PREPARER.RADIOCOMMUNICATIONS TECHNICIAN [address] [place] [address] PCP - General 06/16/22 Antelmo Davey MD [address] [place] [address] (Fax) 09/25/19 [place] [address] [place] [address] Consulting General Surgery 09/25/19 Shanna June, RADIOCOMMUNICATIONS TECHNICIAN [address] [place] [address] Referring Family Medicine 10/19/19 Agustin Valentino PA [address] [address] [place] [address] Referring Family Medicine 05/13/22 Band Saw Runner Relationship Specialty Start Date End Date Jaquan Morrow, AMMONIA SOLUTION PREPARER.RADIOCOMMUNICATIONS TECHNICIAN [address] [place] [address] PCP - General 06/16/22 Antelmo Davey MD [address] [facility] [place] [address] 09/25/19 [place] [address] [place] [address] Consulting General Surgery 09/25/19 Shanna June, BETH [address] [place] [address] Referring Family Medicine 10/19/19 Agustin Valentino PA [address] [facility] [address] [place] [address] Referring Family Medicine 05/13/22 Band Saw Runner Relationship Specialty Start Date End Date Jaquan Morrow, AMMONIA SOLUTION PREPARER.RADIOCOMMUNICATIONS TECHNICIAN [address] [place] [address] PCP - General 06/16/22 Antelmo Davey MD [address] [facility] [place] [address] 09/25/19 [place] [address] [place] [address] Consulting General Surgery 09/25/19 Shanna June, BETH [address] [place] [address] Referring Family Medicine 10/19/19 Agustin Valentino PA [address] [address] [place] [address] Referring Family Medicine 05/13/22 Team Status: Inactive [...] July 17, 2023 End: July 17, 2023 Band Saw Runner Relationship Specialty Start Date End Date Jaquan Morrow, AMMONIA SOLUTION PREPARER.RADIOCOMMUNICATIONS TECHNICIAN [address] [place] [address] PCP - General 06/16/22 Antelmo Davey MD [address] [place] [address] (Fax) 09/25/19 [place] [address] [place] [address] Consulting General Surgery 09/25/19 Shanna June, RADIOCOMMUNICATIONS TECHNICIAN [address] [place] [address] Referring Family Medicine 10/19/19 Agustin Valentino PA [address] [place], [place] [address], [place] [address] Referring Family Medicine 05/13/22 Team Status: Inactive Member Role Status Dates Thomas Calix MD Primary Care Provider Active Start: July 31, 2023 End: July 31, 2023 Jeramy Cunningham DO Emergency Provider Active Sta rt: July 31, 2023 End: July 31, 2023 Band Saw Runner Relationship Specialty Start Date End Date Thomas Calix MD [address] [place] [address] PCP - General Family Medicine 07/30/23 Antelmo Davey MD [address] [place] [address] 09/25/19 [place] [address] [place] [address] Consulting General Surgery 09/25/19 Shanna June, BETH [address] [place] [address] Referring Family Medicine 10/19/19 Agustin Valentino PA [address] [address] [place] [address] Referring Family Medicine 05/13/22 Band Saw Runner Relationship Specialty Start Date End Date Thomas Calix MD [address] [place] [address] PCP - General Family Medicine 07/30/23 Antelmo Davey MD [address] [place] [address] (Fax) 09/25/19 [place] [address] [place] [address] Consulting General Surgery 09/25/19 Shanna June CNP [address] [place] [address] Referring Family Medicine 10/19/19 Agustin Valentino PA [address] [address] Referring Family Medicine 05/13/22 Band Saw Runner Relationship Specialty Start Date End Date Thomas Calix MD [address] [place] [address] PCP - General Family Medicine 07/30/23 Antelmo Davey MD [address] [place] [address] (Fax) 09/25/19 [place] [address] [place] [address] Consulting General Surgery 09/25/19 Shanna June, BETH [address] [place] [address] Referring Family Medicine 10/19/19 Agustin Valentino PA [address] [place] [address] Referring Family Medicine 05/13/22 Band Saw Runner Relationship Specialty Start Date End Date Thomas Calix MD [address] [place] [address] PCP - General Family Medicine 07/30/23 Antelmo Davey MD [address] [place] [address] 09/25/19 [place] [address] [place] [address] Consulting General Surgery 09/25/19 Shanna June, RADIOCOMMUNICATIONS TECHNICIAN [address] [place] [address] Referring Family Medicine 10/19/19 Agustin Valentino PA [address] [place] [address] Referring Family Medicine 05/13/22 Band Saw Runner Relationship Specialty Start Date End Date Thomas Calix MD [address] [place] [address] PCP - General Family Medicine 07/30/23 Antelmo Davey MD [address] [place] [address] (Fax) 09/25/19 [place] [address] [place] [address] Consulting General Surgery 09/25/19 Shanna June, BETH [address] [place] [address] Referring Family Medicine 10/19/19 Agustin Valentino PA [address] [place], [place] [address], [place] [address] Referring Family Medicine 05/13/22 Band Saw Runner Relationship Specialty Start Date End Date Thomas Calix MD [address] [place] [address] PCP - General Family Medicine 07/30/23 Antelmo Davey MD [address] [place] [address] 09/25/19 [place] [address] [place] [address] Consulting General Surgery 09/25/19 Shanna June, BETH [address] [place] [address] Referring Family Medicine 10/19/19 Agustin Valentino PA [address] [address] Referring Family Medicine 05/13/22 Team Status: Inactive [...] August 21, 2023 End: August 21, 2023 Band Saw Runner Relationship Specialty Start Date End Date Thomas Calix MD [address] [place] [address] PCP - General Family Medicine 07/30/23 Antelmo Davey MD [address] [place] [address] 09/25/19 [place] [address] [place] [address] Consulting General Surgery 09/25/19 Shanna June, BETH [address] [place] [address] Referring Family Medicine 10/19/19 Agustin Valentino PA [address] [address] Referring Family Medicine 05/13/22 Band Saw Runner Relationship Specialty Start Date End Date Thomas Calix MD [address] [place] [address] PCP - General Family Medicine 07/30/23 Antelmo Davey MD [address] [place] [address] (Fax) 09/25/[address] [place] [address] [facility] [facility] [place] [address] Consulting General Surgery 09/25/19 Shanna June, BETH [address] [place] [address] Referring Family Medicine 10/19/19 Agustin Valentino PA [address] [place], [place] [address], [place] [address] Referring Family Medicine 05/13/22 Band Saw Runner Relationship Specialty Start Date End Date Thomas Calix MD [address] [place] [address] PCP - General Family Medicine 07/30/23 Antelmo Davey MD [address] [place] [address] (Fax) 09/25/[address] [place] [address] [facility] [place] [place] [address] Consulting General Surgery 09/25/19 Shanna June, BETH [address] [place] [address] Referring Family Medicine 10/19/19 Agustin Valentino PA [address] [place] [address] Referring Family Medicine 05/13/22 Band Saw Runner Relationship Specialty Start Date End Date Thomas Calix MD [address] [place] [address] PCP - General Family Medicine 07/30/23 Antelmo Davey MD [address] [place] [address] (Fax) 09/25/19 [place] [address] [place] [address] Consulting General Surgery 09/25/19 Shanna June CNP [address] [place] [address] Referring Family Medicine 10/19/19 Agustin Valentino PA [address] [address] Referring Family Medicine 05/13/22 Band Saw Runner Relationship Specialty Start Date End Date Thomas Calix MD [address] [place] [address] PCP - General Family Medicine 07/30/23 Antelmo Davey MD [address] [place] [address] (Fax) 09/25/19 [place] [address] [place] [address] Consulting General Surgery 09/25/19 Shanna June, BETH [address] [place] [address] Referring Family Medicine 10/19/19 Agustin Valentino PA [address] [place] [address] Referring Family Medicine 05/13/22 Band Saw Runner Relationship Specialty Start Date End Date Thomas Calix MD [address] [place] [address] PCP - General Family Medicine 07/30/23 Antelmo Davey MD [address] [place] [address] 09/25/19 [place] [address] [place] [address] Consulting General Surgery 09/25/19 Shanna June, BETH [address] [place] [address] Referring Family Medicine 10/19/19 Agustin Valentino PA [address] [address] [place] [address] Referring Family Medicine 05/13/22 Source Comments (unrecognize d section and content) In the event this informatio n is protected by the Federal Confidentiality of Alcohol and Drug Abuse Patient Records regulations: The Federal rules restrict any use of the information to criminally investigate or prosecute any alcohol or drug abuse patient.[facility] CenterIn the event this information is protected by the Federal Confidentiality of Alcohol and Drug Abuse Patient Records regulations: The Federal rules restrict any use of the information to criminally investigate or prosecute any alcohol or drug abuse patient.[facility] CenterIn the event this information is protected by the Federal Confidentiality of Alcohol and Drug Abuse Patient Records regulations: The Federal rules restrict any use of the information to criminally investigate or prosecute any alcohol or drug abuse patient.[facility] CenterIn the event this information is protected by the Federal Confidentiality of Alcohol and Drug Abuse Patient Records regulations: The Federal rules restrict any use of the information to criminally investigate or prosecute any alcohol or drug abuse patient.[facility] CenterIn the event this information is protected by the Federal Confidentiality of Alcohol and Drug Abuse Patient Records regulations: The Federal rules restrict any use of the information to criminally investigate or prosecute any alcohol or drug abuse patient.[facility] CenterIn the event this information is protected by the Federal Confidentiality of Alcohol and Drug Abuse Patient Records regulations: The Federal rules restrict any use of the information to criminally investigate or prosecute any alcohol or drug abuse patient.[facility] CenterIn the event this information is protected by the Federal Confidentiality of Alcohol and Drug Abuse Patient Records regulations: The Federal rules restrict any use of the information to criminally investigate or prosecute any alcohol or drug abuse patient.[facility] CenterIn the event this information is protected by the Federal Confidentiality of Alcohol and Drug Abuse Patient Records regulations: The Federal rules restrict any use of the information to criminally investigate or prosecute any alcohol or drug abuse patient.[facility] CenterIn the event this information is protected by the Federal Confidentiality of Alcohol and Drug Abuse Patient Records regulations: The Federal rules restrict any use of the information to criminally investigate or prosecute any alcohol or drug abuse patient.[facility] CenterIn the event this information is protected by the Federal Confidentiality of Alcohol and Drug Abuse Patient Records regulations: The Federal rules restrict any use of the information to criminally investigate or prosecute any alcohol or drug abuse patient.[facility] CenterIn the event this information is protected by the Federal Confidentiality of Alcohol and Drug Abuse Patient Records regulations: The Federal rules restrict any use of the information to criminally investigate or prosecute any alcohol or drug abuse patient.[facility] CenterIn the event this information is protected by the Federal Confidentiality of Alcohol and Drug Abuse Patient Records regulations: The Federal rules restrict any use of the information to criminally investigate or prosecute any alcohol or drug abuse patient.[facility] CenterIn the event this information is protected by the Federal Confidentiality of Alcohol and Drug Abuse Patient Records regulations: The Federal rules restrict any use of the information to criminally investigate or prosecute any alcohol or drug abuse patient.[facility] CenterIn the event this information is protected by the Federal Confidentiality of Alcohol and Drug Abuse Patient Records regulations: The Federal rules restrict any use of the information to criminally investigate or prosecute any alcohol or drug abuse patient.[facility] CenterIn the event this information is protected by the Federal Confidentiality of Alcohol and Drug Abuse Patient Records regulations: The Federal rules restrict any use of the information to criminally investigate or prosecute any alcohol or drug abuse patient.[facility] CenterIn the event this information is protected by the Federal Confidentiality of Alcohol and Drug Abuse Patient Records regulations: The Federal rules restrict any use of the information to criminally investigate or prosecute any alcohol or drug abuse patient.[facility] CenterIn the event this information is protected by the Federal Confidentiality of Alcohol and Drug Abuse Patient Records regulations: The Federal rules restrict any use of the information to criminally investigate or prosecute any alcohol or drug abuse patient.[facility] CenterIn the event this information is protected by the Federal Confidentiality of Alcohol and Drug Abuse Patient Records regulations: The Federal rules restrict any use of the information to criminally investigate or prosecute any alcohol or drug abuse patient.[facility] CenterIn the event this information is protected by the Federal Confidentiality of Alcohol and Drug Abuse Patient Records regulations: The Federal rules restrict any use of the information to criminally investigate or prosecute any alcohol or drug abuse patient.[facility] CenterIn the event this information is protected by the Federal Confidentiality of Alcohol and Drug Abuse Patient Records regulations: The Federal rules restrict any use of the information to criminally investigate or prosecute any alcohol or drug abuse patient.[facility] the event this information is protected by the Federal Confidentiality of Alcohol and Drug Abuse Patient Records regulations: The Federal rules restrict any use of the information to criminally investigate or prosecute any alcohol or drug abuse patient.[facility] CenterIn the event this information is protected by the Federal Confidentiality of Alcohol and Drug Abuse Patient Records regulations: The Federal rules restrict any use of the information to criminally investigate or prosecute any alcohol or drug abuse patient.[facility] CenterIn the event this information is protected by the Federal Confidentiality of Alcohol and Drug Abuse Patient Records regulations: The Federal rules restrict any use of the information to criminally investigate or prosecute any alcohol or drug abuse patient.[facility] CenterIn the event this information is protected by the Federal Confidentiality of Alcohol and Drug Abuse Patient Records regulations: The Federal rules restrict any use of the information to criminally investigate or prosecute any alcohol or drug abuse patient.[facility] CenterIn the event this information is protected by the Federal Confidentiality of Alcohol and Drug Abuse Patient Records regulations: The Federal rules restrict any use of the information to criminally investigate or prosecute any alcohol or drug abuse patient.[facility] CenterIn the event this information is protected by the Federal Confidentiality of Alcohol and Drug Abuse Patient Records regulations: The Federal rules restrict any use of the information to criminally investigate or prosecute any alcohol or drug abuse patient.[facility] CenterIn the event this information is protected by the Federal Confidentiality of Alcohol and Drug Abuse Patient Records regulations: The Federal rules restrict any use of the information to criminally investigate or prosecute any alcohol or drug abuse patient.[facility] CenterIn the event this information is protected by the Federal Confidentiality of Alcohol and Drug Abuse Patient Records regulations: The Federal rules restrict any use of the information to criminally investigate or prosecute any alcohol or drug abuse patient.[facility] CenterIn the event this information is protected by the Federal Confidentiality of Alcohol and Drug Abuse Patient Records regulations: The Federal rules restrict any use of the information to criminally investigate or prosecute any alcohol or drug abuse patient.[facility] CenterIn the event this information is protected by the Federal Confidentiality of Alcohol and Drug Abuse Patient Records regulations: The Federal rules restrict any use of the information to criminally investigate or prosecute any alcohol or drug abuse patient.[facility] CenterIn the event this information is protected by the Federal Confidentiality of Alcohol and Drug Abuse Patient Records regulations: The Federal rules restrict any use of the information to criminally investigate or prosecute any alcohol or drug abuse patient.[facility] CenterIn the event this information is protected by the Federal Confidentiality of Alcohol and Drug Abuse Patient Records regulations: The Federal rules restrict any use of the information to criminally investigate or prosecute any alcohol or drug abuse patient.[facility] CenterIn the event this information is protected by the Federal Confidentiality of Alcohol and Drug Abuse Patient Records regulations: The Federal rules restrict any use of the information to criminally investigate or prosecute any alcohol or drug abuse patient.[facility] CenterIn the event this information is protected by the Federal Confidentiality of Alcohol and Drug Abuse Patient Records regulations: The Federal rules restrict any use of the information to criminally investigate or prosecute any alcohol or drug abuse patient.[facility] CenterIn the event this information is protected by the Federal Confidentiality of Alcohol and Drug Abuse Patient Records regulations: The Federal rules restrict any use of the information to criminally investigate or prosecute any alcohol or drug abuse patient.[facility] CenterIn the event this information is protected by the Federal Confidentiality of Alcohol and Drug Abuse Patient Records regulations: The Federal rules restrict any use of the information to criminally investigate or prosecute any alcohol or drug abuse patient.[facility] CenterIn the event this information is protected by the Federal Confidentiality of Alcohol and Drug Abuse Patient Records regulations: The Federal rules restrict any use of the information to criminally investigate or prosecute any alcohol or drug abuse patient.[facility] CenterIn the event this information is protected by the Federal Confidentiality of Alcohol and Drug Abuse Patient Records regulations: The Federal rules restrict any use of the information to criminally investigate or prosecute any alcohol or drug abuse patient.[facility] CenterIn the event this information is protected by the Federal Confidentiality of Alcohol and Drug Abuse Patient Records regulations: The Federal rules restrict any use of the information to criminally investigate or prosecute any alcohol or drug abuse patient.[facility] CenterIn the event this information is protected by the Federal Confidentiality of Alcohol and Drug Abuse Patient Records regulations: The Federal rules restrict any use of the information to criminally investigate or prosecute any alcohol or drug abuse patient.[facility] CenterIn the event this information is protected by the Federal Confidentiality of Alcohol and Drug Abuse Patient Records regulations: The Federal rules restrict any use of the information to criminally investigate or prosecute any alcohol or drug abuse patient.[facility] CenterIn the event this information is protected by the Federal Confidentiality of Alcohol and Drug Abuse Patient Records regulations: The Federal rules restrict any use of the information to criminally investigate or prosecute any alcohol or drug abuse patient.[facility] CenterIn the event this information is protected by the Federal Confidentiality of Alcohol and Drug Abuse Patient Records regulations: The Federal rules restrict any use of the information to criminally investigate or prosecute any alcohol or drug abuse patient.[facility] CenterIn the event this information is protected by the Federal Confidentiality of Alcohol and Drug Abuse Patient Records regulations: The Federal rules restrict any use of the information to criminally investigate or prosecute any alcohol or drug abuse patient.[facility] CenterIn the event this information is protected by the Federal Confidentiality of Alcohol and Drug Abuse Patient Records regulations: The Federal rules restrict any use of the information to criminally investigate or prosecute any alcohol or drug abuse patient.[facility] CenterIn the event this information is protected by the Federal Confidentiality of Alcohol and Drug Abuse Patient Records regulations: The Federal rules restrict any use of the information to criminally investigate or prosecute any alcohol or drug abuse patient.[facility] CenterIn the event this information is protected by the Federal Confidentiality of Alcohol and Drug Abuse Patient Records regulations: The Federal rules restrict any use of the information to criminally investigate or prosecute any alcohol or drug abuse patient.[facility] CenterIn the event this information is protected by the Federal Confidentiality of Alcohol and Drug Abuse Patient Records regulations: The Federal rules restrict any use of the information to criminally investigate or prosecute any alcohol or drug abuse patient.[facility]In the event this information is protected by the Federal Confidentiality of Alcohol and Drug Abuse Patient Records regulations: The Federal rules restrict any use of the information to criminally investigate or prosecute any alcohol or drug abuse patient.[facility] CenterIn the event this information is protected by the Federal Confidentiality of Alcohol and Drug Abuse Patient Records regulations: The Federal rules restrict any use of the information to criminally investigate or prosecute any alcohol or drug abuse patient.[facility] CenterIn the event this information is protected by the Federal Confidentiality of Alcohol and Drug Abuse Patient Records regulations: The Federal rules restrict any use of the information to criminally investigate or prosecute any alcohol or drug abuse patient.[facility] CenterIn the event this information is protected by the Federal Confidentiality of Alcohol and Drug Abuse Patient Records regulations: The Federal rules restrict any use of the information to criminally investigate or prosecute any alcohol or drug abuse patient.[facility] CenterIn the event this information is protected by the Federal Confidentiality of Alcohol and Drug Abuse Patient Records regulations: The Federal rules restrict any use of the information to criminally investigate or prosecute any alcohol or drug abuse patient.[facility] CenterIn the event this information is protected by the Federal Confidentiality of Alcohol and Drug Abuse Patient Records regulations: The Federal rules restrict any use of the information to criminally investigate or prosecute any alcohol or drug abuse patient.[facility] CenterIn the event this information is protected by the Federal Confidentiality of Alcohol and Drug Abuse Patient Records regulations: The Federal rules restrict any use of the information to criminally investigate or prosecute any alcohol or drug abuse patient.[facility] CenterIn the event this information is protected by the Federal Confidentiality of Alcohol and Drug Abuse Patient Records regulations: The Federal rules restrict any use of the information to criminally investigate or prosecute any alcohol or drug abuse patient.[facility] CenterIn the event this information is protected by the Federal Confidentiality of Alcohol and Drug Abuse Patient Records regulations: The Federal rules restrict any use of the information to criminally investigate or prosecute any alcohol or drug abuse patient.[facility] CenterIn the event this information is protected by the Federal Confidentiality of Alcohol and Drug Abuse Patient Records regulations: The Federal rules restrict any use of the information to criminally investigate or prosecute any alcohol or drug abuse patient.[facility] CenterIn the event this information is protected by the Federal Confidentiality of Alcohol and Drug Abuse Patient Records regulations: The Federal rules restrict any use of the information to criminally investigate or prosecute any alcohol or drug abuse patient.[facility] CenterIn the event this information is protected by the Federal Confidentiality of Alcohol and Drug Abuse Patient Records regulations: The Federal rules restrict any use of the information to criminally investigate or prosecute any alcohol or drug abuse patient.[facility] CenterIn the event this information is protected by the Federal Confidentiality of Alcohol and Drug Abuse Patient Records regulations: The Federal rules restrict any use of the information to criminally investigate or prosecute any alcohol or drug abuse patient.[facility] CenterIn the event this information is protected by the Federal Confidentiality of Alcohol and Drug Abuse Patient Records regulations: The Federal rules restrict any use of the information to criminally investigate or prosecute any alcohol or drug abuse patient.[facility] CenterIn the event this information is protected by the Federal Confidentiality of Alcohol and Drug Abuse Patient Records regulations: The Federal rules restrict any use of the information to criminally investigate or prosecute any alcohol or drug abuse patient.[facility] CenterIn the event this information is protected by the Federal Confidentiality of Alcohol and Drug Abuse Patient Records regulations: The Federal rules restrict any use of the information to criminally investigate or prosecute any alcohol or drug abuse patient.[facility] CenterIn the event this information is protected by the Federal Confidentiality of Alcohol and Drug Abuse Patient Records regulations: The Federal rules restrict any use of the information to criminally investigate or prosecute any alcohol or drug abuse patient.[facility] CenterIn the event this information is protected by the Federal Confidentiality of Alcohol and Drug Abuse Patient Records regulations: The Federal rules restrict any use of the information to criminally investigate or prosecute any alcohol or drug abuse patient.[facility] CenterIn the event this information is protected by the Federal Confidentiality of Alcohol and Drug Abuse Patient Records regulations: The Federal rules restrict any use of the information to criminally investigate or prosecute any alcohol or drug abuse patient.[facility] CenterIn the event this information is protected by the Federal Confidentiality of Alcohol and Drug Abuse Patient Records regulations: The Federal rules restrict any use of the information to criminally investigate or prosecute any alcohol or drug abuse patient.[facility] CenterIn the event this information is protected by the Federal Confidentiality of Alcohol and Drug Abuse Patient Records regulations: The Federal rules restrict any use of the information to criminally investigate or prosecute any alcohol or drug abuse patient.[facility] CenterIn the event this information is protected by the Federal Confidentiality of Alcohol and Drug Abuse Patient Records regulations: The Federal rules restrict any use of the information to criminally investigate or prosecute any alcohol or drug abuse patient.[facility] the event this information is protected by the Federal Confidentiality of Alcohol and Drug Abuse Patient Records regulations: The Federal rules restrict any use of the information to criminally investigate or prosecute any alcohol or drug abuse patient.[facility] CenterIn the event this information is protected by the Federal Confidentiality of Alcohol and Drug Abuse Patient Records regulations: The Federal rules restrict any use of the information to criminally investigate or prosecute any alcohol or drug abuse patient.[facility] CenterIn the event this information is protected by the Federal Confidentiality of Alcohol and Drug Abuse Patient Records regulations: The Federal rules restrict any use of the information to criminally investigate or prosecute any alcohol or drug abuse patient.[facility] CenterIn the event this information is protected by the Federal Confidentiality of Alcohol and Drug Abuse Patient Records regulations: The Federal rules restrict any use of the information to criminally investigate or prosecute any alcohol or drug abuse patient.[facility] CenterIn the event this information is protected by the Federal Confidentiality of Alcohol and Drug Abuse Patient Records regulations: The Federal rules restrict any use of the information to criminally investigate or prosecute any alcohol or drug abuse patient.[facility] CenterIn the event this information is protected by the Federal Confidentiality of Alcohol and Drug Abuse Patient Records regulations: The Federal rules restrict any use of the information to criminally investigate or prosecute any alcohol or drug abuse patient.[facility] CenterIn the event this information is protected by the Federal Confidentiality of Alcohol and Drug Abuse Patient Records regulations: The Federal rules restrict any use of the information to criminally investigate or prosecute any alcohol or drug abuse patient.[facility] CenterIn the event this information is protected by the Federal Confidentiality of Alcohol and Drug Abuse Patient Records regulations: The Federal rules restrict any use of the information to criminally investigate or prosecute any alcohol or drug abuse patient.[facility] CenterIn the event this information is protected by the Federal Confidentiality of Alcohol and Drug Abuse Patient Records regulations: The Federal rules restrict any use of the information to criminally investigate or prosecute any alcohol or drug abuse patient.[facility] CenterIn the event this information is protected by the Federal Confidentiality of Alcohol and Drug Abuse Patient Records regulations: The Federal rules restrict any use of the information to criminally investigate or prosecute any alcohol or drug abuse patient.[facility] CenterIn the event this information is protected by the Federal Confidentiality of Alcohol and Drug Abuse Patient Records regulations: The Federal rules restrict any use of the information to criminally investigate or prosecute any alcohol or drug abuse patient.[facility] CenterIn the event this information is protected by the Federal Confidentiality of Alcohol and Drug Abuse Patient Records regulations: The Federal rules restrict any use of the information to criminally investigate or prosecute any alcohol or drug abuse patient.[facility] CenterIn the event this information is protected by the Federal Confidentiality of Alcohol and Drug Abuse Patient Records regulations: The Federal rules restrict any use of the information to criminally investigate or prosecute any alcohol or drug abuse patient.[facility] CenterIn the event this information is protected by the Federal Confidentiality of Alcohol and Drug Abuse Patient Records regulations: The Federal rules restrict any use of the information to criminally investigate or prosecute any alcohol or drug abuse patient.[facility] CenterIn the event this information is protected by the Federal Confidentiality of Alcohol and Drug Abuse Patient Records regulations: The Federal rules restrict any use of the information to criminally investigate or prosecute any alcohol or drug abuse patient.[facility] CenterIn the event this information is protected by the Federal Confidentiality of Alcohol and Drug Abuse Patient Records regulations: The Federal rules restrict any use of the information to criminally investigate or prosecute any alcohol or drug abuse patient.[facility] CenterIn the event this information is protected by the Federal Confidentiality of Alcohol and Drug Abuse Patient Records regulations: The Federal rules restrict any use of the information to criminally investigate or prosecute any alcohol or drug abuse patient.[facility] CenterIn the event this information is protected by the Federal Confidentiality of Alcohol and Drug Abuse Patient Records regulations: The Federal rules restrict any use of the information to criminally investigate or prosecute any alcohol or drug abuse patient.[facility] CenterIn the event this information is protected by the Federal Confidentiality of Alcohol and Drug Abuse Patient Records regulations: The Federal rules restrict any use of the information to criminally investigate or prosecute any alcohol or drug abuse patient.[facility] CenterIn the event this information is protected by the Federal Confidentiality of Alcohol and Drug Abuse Patient Records regulations: The Federal rules restrict any use of the information to criminally investigate or prosecute any alcohol or drug abuse patient.[facility] CenterIn the event this information is protected by the Federal Confidentiality of Alcohol and Drug Abuse Patient Records regulations: The Federal rules restrict any use of the information to criminally investigate or prosecute any alcohol or drug abuse patient.[facility] CenterIn the event this information is protected by the Federal Confidentiality of Alcohol and Drug Abuse Patient Records regulations: The Federal rules restrict any use of the information to criminally investigate or prosecute any alcohol or drug abuse patient.[facility] CenterIn the event this information is protected by the Federal Confidentiality of Alcohol and Drug Abuse Patient Records regulations: The Federal rules restrict any use of the information to criminally investigate or prosecute any alcohol or drug abuse patient.[facility] CenterIn the event this information is protected by the Federal Confidentiality of Alcohol and Drug Abuse Patient Records regulations: The Federal rules restrict any use of the information to criminally investigate or prosecute any alcohol or drug abuse patient.[facility] CenterIn the event this information is protected by the Federal Confidentiality of Alcohol and Drug Abuse Patient Records regulations: The Federal rules restrict any use of the information to criminally investigate or prosecute any alcohol or drug abuse patient.[facility] CenterIn the event this information is protected by the Federal Confidentiality of Alcohol and Drug Abuse Patient Records regulations: The Federal rules restrict any use of the information to criminally investigate or prosecute any alcohol or drug abuse patient.[facility] CenterIn the event this information is protected by the Federal Confidentiality of Alcohol and Drug Abuse Patient Records regulations: The Federal rules restrict any use of the information to criminally investigate or prosecute any alcohol or drug abuse patient.[facility] CenterIn the event this information is protected by the Federal Confidentiality of Alcohol and Drug Abuse Patient Records regulations: The Federal rules restrict any use of the information to criminally investigate or prosecute any alcohol or drug abuse patient.[facility] CenterIn the event this information is protected by the Federal Confidentiality of Alcohol and Drug Abuse Patient Records regulations: The Federal rules restrict any use of the information to criminally investigate or prosecute any alcohol or drug abuse patient.[facility] CenterIn the event this information is protected by the Federal Confidentiality of Alcohol and Drug Abuse Patient Records regulations: The Federal rules restrict any use of the information to criminally investigate or prosecute any alcohol or drug abuse patient.[facility]In the event this information is protected by the Federal Confidentiality of Alcohol and Drug Abuse Patient Records regulations: The Federal rules restrict any use of the information to criminally investigate or prosecute any alcohol or drug abuse patient.[facility] CenterIn the event this information is protected by the Federal Confidentiality of Alcohol and Drug Abuse Patient Records regulations: The Federal rules restrict any use of the information to criminally investigate or prosecute any alcohol or drug abuse patient.[facility]In the event this information is protected by the Federal Confidentiality of Alcohol and Drug Abuse Patient Records regulations: The Federal rules restrict any use of the information to criminally investigate or prosecute any alcohol or drug abuse patient.[facility] CenterIn the event this information is protected by the Federal Confidentiality of Alcohol and Drug Abuse Patient Records regulations: The Federal rules restrict any use of the information to criminally investigate or prosecute any alcohol or drug abuse patient.[facility]In the event this information is protected by the Federal Confidentiality of Alcohol and Drug Abuse Patient Records regulations: The Federal rules restrict any use of the information to criminally investigate or prosecute any alcohol or drug abuse patient.[facility] CenterIn the event this information is protected by the Federal Confidentiality of Alcohol and Drug Abuse Patient Records regulations: The Federal rules restrict any use of the information to criminally investigate or prosecute any alcohol or drug abuse patient.[facility] CenterIn the event this information is protected by the Federal Confidentiality of Alcohol and Drug Abuse Patient Records regulations: The Federal rules restrict any use of the information to criminally investigate or prosecute any alcohol or drug abuse patient.[facility]In the event this information is protected by the Federal Confidentiality of Alcohol and Drug Abuse Patient Records regulations: The Federal rules restrict any use of the information to criminally investigate or prosecute any alcohol or drug abuse patient.[facility] CenterIn the event this information is protected by the Federal Confidentiality of Alcohol and Drug Abuse Patient Records regulations: The Federal rules restrict any use of the information to criminally investigate or prosecute any alcohol or drug abuse patient.[facility] CenterIn the event this information is protected by the Federal Confidentiality of Alcohol and Drug Abuse Patient Records regulations: The Federal rules restrict any use of the information to criminally investigate or prosecute any alcohol or drug abuse patient.[facility] CenterIn the event this information is protected by the Federal Confidentiality of Alcohol and Drug Abuse Patient Records regulations: The Federal rules restrict any use of the information to criminally investigate or prosecute any alcohol or drug abuse patient.[facility] CenterIn the event this information is protected by the Federal Confidentiality of Alcohol and Drug Abuse Patient Records regulations: The Federal rules restrict any use of the information to criminally investigate or prosecute any alcohol or drug abuse patient.[facility]In the event this information is protected by the Federal Confidentiality of Alcohol and Drug Abuse Patient Records regulations: The Federal rules restrict any use of the information to criminally investigate or prosecute any alcohol or drug abuse patient.[facility] CenterIn the event this information is protected by the Federal Confidentiality of Alcohol and Drug Abuse Patient Records regulations: The Federal rules restrict any use of the information to criminally investigate or prosecute any alcohol or drug abuse patient.[facility]In the event this information is protected by the Federal Confidentiality of Alcohol and Drug Abuse Patient Records regulations: The Federal rules restrict any use of the information to criminally investigate or prosecute any alcohol or drug abuse patient.[facility]In the event this information is protected by the Federal Confidentiality of Alcohol and Drug Abuse Patient Records regulations: The Federal rules restrict any use of the information to criminally investigate or prosecute any alcohol or drug abuse patient.[facility]In the event this information is protected by the Federal Confidentiality of Alcohol and Drug Abuse Patient Records regulations: The Federal rules restrict any use of the information to criminally investigate or prosecute any alcohol or drug abuse patient.[facility]In the event this information is protected by the Federal Confidentiality of Alcohol and Drug Abuse Patient Records regulations: The Federal rules restrict any use of the information to criminally investigate or prosecute any alcohol or drug abuse patient.[facility]In the event this information is protected by the Federal Confidentiality of Alcohol and Drug Abuse Patient Records regulations: The Federal rules restrict any use of the information to criminally investigate or prosecute any alcohol or drug abuse patient.[facility] CenterIn the event this information is protected by the Federal Confidentiality of Alcohol and Drug Abuse Patient Records regulations: The Federal rules restrict any use of the information to criminally investigate or prosecute any alcohol or drug abuse patient.[facility] the event this information is protected by the Federal Confidentiality of Alcohol and Drug Abuse Patient Records regulations: The Federal rules restrict any use of the information to criminally investigate or prosecute any alcohol or drug abuse patient.[facility] CenterIn the event this information is protected by the Federal Confidentiality of Alcohol and Drug Abuse Patient Records regulations: The Federal rules restrict any use of the information to criminally investigate or prosecute any alcohol or drug abuse patient.[facility] CenterIn the event this information is protected by the Federal Confidentiality of Alcohol and Drug Abuse Patient Records regulations: The Federal rules restrict any use of the information to criminally investigate or prosecute any alcohol or drug abuse patient.[facility] CenterIn the event this information is protected by the Federal Confidentiality of Alcohol and Drug Abuse Patient Records regulations: The Federal rules restrict any use of the information to criminally investigate or prosecute any alcohol or drug abuse patient.[facility] CenterIn the event this information is protected by the Federal Confidentiality of Alcohol and Drug Abuse Patient Records regulations: The Federal rules restrict any use of the information to criminally investigate or prosecute any alcohol or drug abuse patient.[facility] CenterIn the event this information is protected by the Federal Confidentiality of Alcohol and Drug Abuse Patient Records regulations: The Federal rules restrict any use of the information to criminally investigate or prosecute any alcohol or drug abuse patient.[facility] CenterIn the event this information is protected by the Federal Confidentiality of Alcohol and Drug Abuse Patient Records regulations: The Federal rules restrict any use of the information to criminally investigate or prosecute any alcohol or drug abuse patient.[facility] Center[facility] the event this information is protected by the Federal Confidentiality of Alcohol and Drug Abuse Patient Records regulations: The Federal rules restrict any use of the information to criminally investigate or prosecute any alcohol or drug abuse patient.[facility] Center[facility] the event this information is protected by the Federal Confidentiality of Alcohol and Drug Abuse Patient Records regulations: The Federal rules restrict any use of the information to criminally investigate or prosecute any alcohol or drug abuse patient.[facility] Center[facility] the event this information is protected by the Federal Confidentiality of Alcohol and Drug Abuse Patient Records regulations: The Federal rules restrict any use of the information to criminally investigate or prosecute any alcohol or drug abuse patient.[facility] CenterIn the event this information is protected by the Federal Confidentiality of Alcohol and Drug Abuse Patient Records regulations: The Federal rules restrict any use of the information to criminally investigate or prosecute any alcohol or drug abuse patient.[facility] Ordered Prescriptions (unrec ognized [...] BE BASED ON THE PRIMARY CLINICAL RECORDS. [employer] [facility]. provides no warranty or guarantee of the accuracy or completeness of information in this document.
[2023-09-11 10:32] LABS: Alanine Aminotransferase 54 U/L (14-59); Albumin Globulin Ratio 1.2; Albumin Level 3.6 g/dL (3.4-5.0); Alkaline Phosphatase 57 U/L (46-116); Anion Gap 12.4; Aspartate Amino Transferase 50 U/L (15-37); BUN Creatinine Ratio 13.6; Bilirubin Total 0.4 mg/dL (0.2-1.0); Calcium 8.4 mg/dL (8.5-10.1); Carbon Dioxide 24.4 mmol/L (21.0-32.0); Chloride 106 mmol/L (98-107); Estimated GFR (African America >60 (>=60); Estimated GFR (Non-African Ame >60 (>=60); Glucose 89 mg/dL (74-106); Magnesium 1.6 mg/dL (1.8-2.4); Phosphorus 3.2 mg/dL (2.6-4.7); Potassium 3.8 mmol/L (3.5-5.1); Sodium 139 mmol/L (136-145); Total Protein 6.6 g/dL (6.4-8.2); Triglycerides 67 mg/dL (<=150)
== END 2023-09-11 10:08 | disposition home or self-care (01) ==
LOC: LAB 10:07
PROVIDERS: PCP Family Medicine; Visit Provider Family Medicine
DX: R11.2 Nausea with vomiting, unspecified (principal); E44.0 Moderate protein-calorie malnutrition
CPT/HCPCS: 36415; 80053; 83735; 84100; 84478; 85025

== ENCOUNTER 2023-09-23 16:25 | Emergency (ER) | payer OTHER, SELFPAY ==
[2023-09-23] VITALS (30 sets, daily range): BP systolic 117–149; BP diastolic 69–99; PULSE 61–95; TEMP 36.9; O2SAT 100; BMI 28.2
--- NOTE | 2023-09-23 18:04 | ECG_ITS ---
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
--- NOTE | 2023-09-23 18:11 | ED.ABDPAIN1 ---
HPI - Abdominal Pain General Chief Complaint: Abdominal Pain Stated Complaint: Flank Pain, Abdominal Pain Time Seen by Provider: 09/23/23 17:59 Source: patient Mode of arrival: walk-in Limitations: no limitations History of Present Illness HPI narrative: 33-year-old female presents to the emergency department for abdominal pain. She was sent in by her PCP. She has been having this left upper quadrant pain for about a week and a half. She was at another emergency department and there was a question of intussusception. She was discharged home but she continues to have this pain. She only gets tube feedings, she takes nothing by mouth. She had gastric bypass surgery 2 years ago. No fever or blood in her stools. There is been no trauma. Related Data Home Medications ?Medication ?Instructions ?Recorded ?Confirmed hydroxyzine HCl 25 mg tablet 25 mg PO BID PRN anxiety 09/17/22 09/23/23 liothyronine 5 mcg tablet 5 mcg PO QDAY 09/17/22 09/23/23 topiramate 100 mg tablet 100 mg PO BID 09/17/22 09/23/23 buspirone 10 mg tablet 10 mg PO TID 06/14/23 09/23/23 linaclotide 290 mcg capsule 290 mcg PO DAILY 06/14/23 09/23/23 (Linzess) methocarbamol 750 mg tablet 750 mg PO TID 06/14/23 09/23/23 metoclopramide HCl 10 mg tablet 10 mg PO AC 06/14/23 09/23/23 albuterol sulfate 90 mcg/actuation 2 puff inhalation Q6H PRN 06/15/23 09/23/23 aerosol inhaler shortness of breath or wheezing escitalopram oxalate 20 mg tablet 20 mg PO DAILY 06/15/23 09/23/23 levothyroxine 75 mcg tablet 75 mcg PO .ACB 06/15/23 09/23/23 mirtazapine 30 mg tablet 30 mg PO .HS 06/15/23 09/23/23 pantoprazole 40 mg tablet,delayed 40 mg PO DAILY 06/15/23 09/23/23 release acetaminophen 325 mg tablet (Pain 650 mg PO Q4H PRN pain 06/24/23 08/15/23 Relief (acetaminophen)) prednisone 10 mg tablet 15 mg PO DAILY 09/23/23 09/23/23 Previous Rx's ?Medication ?Instructions ?Recorded Nutrin 45 ml feeding tube Q1H #3,000 mL 06/16/23 prochlorperazine maleate 10 mg 10 mg PO Q6H PRN nausea and 06/16/23 tablet (Compazine) vomiting #60 tabs tramadol 50 mg tablet 50 mg PO Q6H PRN pain #28 tabs 06/16/23 ondansetron 4 mg disintegrating 4 mg PO Q6H PRN nausea and 07/08/23 tablet vomiting #20 tabs Allergies Allergy/AdvReac Type Severity Reaction Status Date / Time adhesive Allergy Rash Verified 08/15/23 13:11 codeine Allergy Vomiting Verified 08/15/23 13:11 NSAIDS (Non-Steroidal Allergy intolerance Verified 08/15/23 13:11 Anti-Inflamma Review of Systems ROS Narrative A ten point review of systems is negative except as noted above. [facility] Medical History (Updated 09/23/23 @ 18:39 by Reji Damon MD) Nausea and vomiting ?R11.2 - Nausea with vomiting, unspecified (ICD-10) Flank pain ?R10.9 - Unspecified abdominal pain (ICD-10) Abdominal pain ?R10.9 - Unspecified abdominal pain (ICD-10) Acute abdomen ?R10.0 - Acute abdomen (ICD-10) Intractable nausea and vomiting ?R11.2 - Nausea with vomiting, unspecified (ICD-10) Intractable abdominal pain ?R10.9 - Unspecified abdominal pain (ICD-10) Depression ?F32.A - Depression, unspecified (ICD-10) Asthma ?J45.909 - Unspecified asthma, uncomplicated (ICD-10) Dyspareunia Pelvic pain ?R10.2 - Pelvic and perineal pain (ICD-10) Ovarian cyst ?N83.209 - Unspecified ovarian cyst, unspecified side (ICD-10) PONV (postoperative nausea and vomiting) ?R11.2 - Nausea with vomiting, unspecified (ICD-10) ?Z98.890 - Other specified postprocedural states (ICD-10) PCOS (polycystic ovarian syndrome) ?E28.2 - Polycystic ovarian syndrome (ICD-10) Hypothyroidism (acquired) ?E03.9 - Hypothyroidism, unspecified (ICD-10) Anxiety ?F41.9 - Anxiety disorder, unspecified (ICD-10) GERD (gastroesophageal reflux disease) ?K21.9 - Gastro-esophageal reflux disease without esophagitis (ICD-10) Sleep apnea ?G47.30 - Sleep apnea, unspecified (ICD-10) Anemia ?D64.9 - Anemia, unspecified (ICD-10) Fibromyalgia ?M79.7 - Fibromyalgia (ICD-10) Syncope (07/07/13) ?R55 - Syncope and collapse (ICD-10) Shingles ?B02.9 - Zoster without complications (ICD-10) Headache ?R51.9 - Headache, unspecified (ICD-10) Migraine ?G43.909 - Migraine, unspecified, not intractable, without status migrainosus (ICD-10) Mechanical ileus (01/31/20) ?K56.609 - Unspecified intestinal obstruction, unspecified as to partial versus complete obstruction (ICD-10) COVID-19 (~02/2020) ?U07.1 - COVID-19 (ICD-10) Kidney stones ?N20.0 - Calculus of kidney (ICD-10) Surgical History (Updated 06/14/23 @ 16:55 by Marsha uD) S/P percutaneous endoscopic gastrostomy (PEG) tube placement ?Z93.1 - Gastrostomy status (ICD-10) 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 - Celiac artery compression syndrome (ICD-10) H/O shoulder surgery (2022) ?Z98.890 - Other specified postprocedural states (ICD-10) History of hip surgery ?Z98.890 - Other specified postprocedural states (ICD-10) S/P right knee arthroscopy ?Z98.890 - Other specified postprocedural states (ICD-10) S/P left knee arthroscopy ?Z98.890 - Other specified postprocedural states (ICD-10) Hx of tonsillectomy ?Z90.89 - Acquired absence of other organs (ICD-10) History of thoracic surgery (~2021) ?Z98.890 - Other specified postprocedural states (ICD-10) History of esophagogastroduodenoscopy (EGD) (10/04/13) ?Z98.890 - Other specified postprocedural states (ICD-10) History of cholecystectomy (10/06/13) ?Z90.49 - Acquired absence of other specified parts of digestive tract (ICD-10) Delivery by section (~2016) Delivery by section (01/17/18) H/O colonoscopy (~2018) ?Z98.890 - Other specified postprocedural states (ICD-10) S/P right knee arthroscopy (07/21/18) ?Z98.890 - Other specified postprocedural states (ICD-10) Delivery by section (06/19/19) History of appendectomy (09/25/19) ?Z90.49 - Acquired absence of other specified parts of digestive tract (ICD-10) H/O laparoscopy (11/10/19) ?Z98.890 - Other specified postprocedural states (ICD-10) History of liver biopsy (~04/2020) ?Z98.890 - Other specified postprocedural states (ICD-10) H/O laparoscopy (07/18/20) ?Z98.890 - Other specified postprocedural states (ICD-10) H/O arthroscopy of right knee (08/07/20) ?Z98.890 - Other specified postprocedural states (ICD-10) S/P laparoscopic sleeve gastrectomy (09/03/20) ?Z98.84 - Bariatric surgery status (ICD-10) H/O: hysterectomy (11/12/20) ?Z90.710 - Acquired absence of both cervix and uterus (ICD-10) History of hernia repair (03/20/21) ?Z98.890 - Other specified postprocedural states (ICD-10) ?Z87.19 - Personal history of other diseases of the digestive system (ICD-10) Family History (Updated 06/14/23 @ 16:56 by Marsha Du) Other Family history of cancer Family history of diabetes mellitus Family history of hypertension Family history of myocardial infarction PONV (postoperative nausea and vomiting) Social History (Updated 06/14/23 @ 16:57 by Marsha Du) Within the past year, how often did you have a drink containing alcohol: never Score interpretation: A score less than 3 is consistent with normal alcohol consumption. Smoking status: Never smoker Non-prescribed substance use: denies use Highest level of school completed/degree received: Master's degree Are you now , , , , never or living with a partner: In a typical week, how many times do you talk on the telephone with family, friends, or neighbors: 3 or more times per week How often do you get together with friends or relatives: twice per week How often do you attend uatsdin or zoroastrianism services: 4 or more times per year Do you belong to any clubs or organizations such as uatsdin groups unions, fraternal or athletic groups, or school groups: no Total score: 3 Score interpretation: A score of greater than or equal to 2 indicates the lowest level of social isolation. Little interest or pleasure in doing things: not at all Feeling down, depressed, or hopeless: several days Feel stressed/tense/nervous/anxious/difficulty sleeping: to some extent Do you think of yourself as: straight/heterosexual Gender Identity: female Exam Narrative Exam Narrative: Nurses note and vital signs reviewed and patient is not hypoxic. General: The patient appears somewhat uncomfortable Skin: Warm, dry, no pallor noted. Head: Normocephalic, atraumatic Eye: Normal conjunctiva, no drainage Ears, Nose, Mouth, and Throat: oral mucosa is moist. Nares patent. Cardiovascular: Regular Rate and Rhythm Respiratory: Patient is in no distress, no accessory muscle use, lungs are clear to auscultation, no wheezing, rales or rhonchi Back: non-tender GI: There is a feeding tube present. She has some tenderness in the left upper quadrant without mass or distention. Musculoskeletal: The patient has no evidence of calf tenderness, no pitting edema, symmetrical pulses noted bilaterally Neurological: A&O, normal speech Psychiatric: Cooperative Constitutional Vital Signs, click to edit/add: Last Vital Signs Temp 98.4 F 09/23/23 16:50 Pulse 77 09/23/23 16:50 Resp 18 09/23/23 16:50 BP 149/99 H 09/23/23 16:50 Pulse Ox 100 09/23/23 16:50 Course Vital Signs Vital signs: Vital Signs Temperature 98.4 F 09/23/23 16:50 Pulse Rate 77 09/23/23 16:50 Respiratory Rate 18 09/23/23 16:50 Blood Pressure 149/99 H 09/23/23 16:50 Pulse Oximetry 100 09/23/23 16:50 Temperature 98.4 F 09/23/23 16:50 Pulse Rate 77 09/23/23 16:50 Respiratory Rate 18 09/23/23 16:50 Blood Pressure 149/99 H 09/23/23 16:50 Pulse Oximetry 100 09/23/23 16:50 MDM - Abdominal Pain MDM Narrative Medical decision making narrative: Test including CT abdomen are ordered and the patient is signed out to Dr. Bird at change of shift. Differential Diagnosis Differential diagnosis: Likely abdominal pain, constipation, diverticulitis, gastroenteritis, pancreatitis and small bowel obstruction Lab Data Labs: Lab Results 09/23/23 Range/Units 17:45 Urine Color Lt. yellow (YELLOW) Urine Clarity Sl cloudy (CLEAR) Urine pH 7.0 (5.0-9.0) Ur Specific [place] 1.010 (1.005-1.025) Urine Protein Negative (NEG/TRACE) mg/dL Urine Glucose (UA) Negative (NEGATIVE) mg/dL Urine Ketones Negative (NEGATIVE) mg/dL Urine Occult Blood Negative (NEGATIVE) Urine Nitrite Negative (NEGATIVE) Urine Bilirubin Negative (NEGATIVE) Urine Urobilinogen 0.2 (0.2-1.0) EU/dL Ur Leukocyte Esterase Negative (NEGATIVE) ECG Data Attestation: I personally reviewed and interpreted this ECG as follows: (EKG on my interpretation shows normal sinus rhythm with rate of 73 and no acute change.) Discharge Plan Discharge Chief Complaint: Abdominal Pain Clinical Impression: Abdominal pain Patient Disposition: Still a Patient Prescriptions / Home Meds: No Action hydroxyzine HCl 25 mg tablet 25 mg PO BID PRN (Reason: anxiety) liothyronine 5 mcg tablet 5 mcg PO QDAY topiramate 100 mg tablet 100 mg PO BID buspirone 10 mg tablet 10 mg PO TID methocarbamol 750 mg tablet 750 mg PO TID metoclopramide HCl 10 mg tablet 10 mg PO AC Linzess 290 mcg capsule 290 mcg PO DAILY albuterol sulfate 90 mcg/actuation HFA aerosol inhaler 2 puff INHALATION Q6H PRN (Reason: shortness of breath or wheezing) levothyroxine 75 mcg tablet 75 mcg PO .ACB escitalopram oxalate 20 mg tablet 20 mg PO DAILY mirtazapine 30 mg tablet 30 mg PO .HS pantoprazole 40 mg tablet,delayed release (DR/EC) 40 mg PO DAILY Nutrin 45 ml feeding tube Q1H Qty: 3000 11RF prochlorperazine maleate [Compazine] 10 mg tablet 10 mg PO Q6H PRN (Reason: nausea and vomiting) Qty: 60 3RF tramadol 50 mg tablet 50 mg PO Q6H PRN (Reason: pain) Qty: 28 0RF acetaminophen [Pain Relief (acetaminophen)] 325 mg tablet 650 mg PO Q4H PRN (Reason: pain) ondansetron 4 mg tablet,disintegrating 4 mg PO Q6H PRN (Reason: nausea and vomiting) Qty: 20 0RF prednisone 10 mg tablet 15 mg PO DAILY Print Language: Irish Referrals: Thomas Alas MD [Primary Care Provider] - 1 week
[2023-09-23 18:31] LABS: Bilirubin Urine NEGATIVE (NEGATIVE); Blood Urine NEGATIVE (NEGATIVE); Clarity Urine SL CLOUDY (CLEAR); Color Urine LT. YELLOW (YELLOW); Glucose Urine UA NEGATIVE (NEGATIVE); Ketones Urine NEGATIVE (NEGATIVE); Leukocyte Esterase Urine NEGATIVE (NEGATIVE); Nitrite Urine NEGATIVE (NEGATIVE); Protein Urine NEGATIVE (NEG/TRACE); Urobilinogen Urine 0.2 EU/dL (0.2-1.0)
[2023-09-23 18:32] LABS: Urine Microscopic Indicated NO
[2023-09-23] MEDS: ONDANSETRON PF 4 MG/2 ML VIAL IV (18:43)
[2023-09-23] MEDS: MORPHINE SULFATE 4 MG/ML VIAL IV (18:43)
[2023-09-23] MEDS: 0.9 % SODIUM CHLORIDE 1,000 ML 200 ML IV (18:44)
[2023-09-23 18:49] LABS: Basophils Percent Auto 0.6 % (0.2-2.0); Eosinophils Absolute Auto 0.1 10^3/uL (0.0-0.7); Eosinophils Percent Auto 1.4 % (0.9-7.0); Hematocrit 31.1 % (36.0-48.0); Hemoglobin 10.2 g/dL (12.0-16.0); Immature Granulocytes Abs Auto 0.01 10^3/uL (0.00-0.03); Immature Granulocytes Pct Auto 0.2 % (0.0-0.5); Lymphocytes Absolute Auto 1.7 10^3/uL (1.2-3.8); Mean Corpuscular HGB Conc 32.8 g/dL (29.9-35.2); Mean Corpuscular Hemoglobin 27.6 pg (26.7-34.0); Mean Corpuscular Volume 84.3 fL (81.0-99.0); Mean Platelet Volume 10.5 fL (9.5-13.5); Monocytes Absolute Auto 0.4 10^3/uL (0.3-0.8); Neutrophils Absolute Auto 2.7 10^3/uL (1.4-6.5); Neutrophils Percent Auto 54.8 % (43.0-75.0); Platelet Count 289 10^3/uL (150-450); Red Blood Count 3.69 10^6/uL (4.20-5.40); Red Cell Distribution Width 13.8 % (11.0-15.0); White Blood Count 4.9 10^3/uL (4.0-11.0)
[2023-09-23] MEDS: FAMOTIDINE 20 MG TABLET PO (18:52)
[2023-09-23 19:16] LABS: Alanine Aminotransferase 33 U/L (14-59); Albumin Globulin Ratio 1.2; Albumin Level 3.6 g/dL (3.4-5.0); Alkaline Phosphatase 58 U/L (46-116); Amylase 39 U/L (25-115); Anion Gap 10.9; Aspartate Amino Transferase 31 U/L (15-37); BUN Creatinine Ratio 8.8; Bilirubin Direct 0.1 mg/dL (0.0-0.2); Bilirubin Total 0.4 mg/dL (0.2-1.0); Calcium 8.6 mg/dL (8.5-10.1); Carbon Dioxide 28.2 mmol/L (21.0-32.0); Chloride 103 mmol/L (98-107); Estimated GFR (African America >60 (>=60); Estimated GFR (Non-African Ame >60 (>=60); Globulin 2.9 g/dL; Glucose 85 mg/dL (74-106); Potassium 3.1 mmol/L (3.5-5.1); Sodium 139 mmol/L (136-145); Total Protein 6.5 g/dL (6.4-8.2)
--- NOTE | 2023-09-23 19:44 | ED.ABDPAIN1 ---
HPI - Abdominal Pain General Chief Complaint: Abdominal Pain Stated Complaint: Flank Pain, Abdominal Pain Time Seen by Provider: 09/23/23 17:59 Source: patient Mode of arrival: walk-in Limitations: no limitations History of Present Illness HPI narrative: This 33-year-old female who is status post Isabel-en-Y gastric bypass surgery with complications requiring a feeding tube who also has a PICC line for TPN was signed out to me at shift change pending CT scan and laboratory analysis. She presents for evaluation of nausea and abdominal pain. The patient states that she is seen at [facility] [place]. He was recently admitted to [facility] [place] and they was concerned that she may have an intussusception. She was discharged home and is concerned that she has an intussusception. She was recently seen at the [facility] [place] physicians office and they are planning to do additional studies and/or surgery on her. The patient has been seen here multiple times. She complains of ongoing abdominal pain with nausea. She has not had any vomiting. She has not had a fever. She is well-appearing. Routine labs are reviewed and are normal with the exception of a mildly low potassium. CT scan with contrast put into her feeding tube as well as IV contrast was ordered and is included in the body of this report and does not show any acute findings or intussusception. The results of the CT scan were discussed with the patient and she was given a copy of the results to share with her physicians at [facility] [place]. She was medicated in the emergency department with morphine, Zofran and IV fluids. She is stable for discharge. Related Data Home Medications ?Medication ?Instructions ?Recorded ?Confirmed hydroxyzine HCl 25 mg tablet 25 mg PO BID PRN anxiety 09/17/22 09/23/23 liothyronine 5 mcg tablet 5 mcg PO QDAY 09/17/22 09/23/23 topiramate 100 mg tablet 100 mg PO BID 09/17/22 09/23/23 buspirone 10 mg tablet 10 mg PO TID 06/14/23 09/23/23 linaclotide 290 mcg capsule 290 mcg PO DAILY 06/14/23 09/23/23 (Linzess) methocarbamol 750 mg tablet 750 mg PO TID 06/14/23 09/23/23 metoclopramide HCl 10 mg tablet 10 mg PO AC 06/14/23 09/23/23 albuterol sulfate 90 mcg/actuation 2 puff inhalation Q6H PRN 06/15/23 09/23/23 aerosol inhaler shortness of breath or wheezing escitalopram oxalate 20 mg tablet 20 mg PO DAILY 06/15/23 09/23/23 levothyroxine 75 mcg tablet 75 mcg PO .ACB 06/15/23 09/23/23 mirtazapine 30 mg tablet 30 mg PO .HS 06/15/23 09/23/23 pantoprazole 40 mg tablet,delayed 40 mg PO DAILY 06/15/23 09/23/23 release acetaminophen 325 mg tablet (Pain 650 mg PO Q4H PRN pain 06/24/23 08/15/23 Relief (acetaminophen)) prednisone 10 mg tablet 15 mg PO DAILY 09/23/23 09/23/23 Previous Rx's ?Medication ?Instructions ?Recorded Nutrin 45 ml feeding tube Q1H #3,000 mL 06/16/23 prochlorperazine maleate 10 mg 10 mg PO Q6H PRN nausea and 06/16/23 tablet (Compazine) vomiting #60 tabs tramadol 50 mg tablet 50 mg PO Q6H PRN pain #28 tabs 06/16/23 ondansetron 4 mg disintegrating 4 mg PO Q6H PRN nausea and 07/08/23 tablet vomiting #20 tabs Allergies Allergy/AdvReac Type Severity Reaction Status Date / Time adhesive Allergy Rash Verified 08/15/23 13:11 codeine Allergy Vomiting Verified 08/15/23 13:11 NSAIDS (Non-Steroidal Allergy intolerance Verified 08/15/23 13:11 Anti-Inflamma [facility] Medical History (Updated 09/23/23 @ 23:03 by Vicky Bird MD) Nausea and vomiting ?R11.2 - Nausea with vomiting, unspecified (ICD-10) Flank pain ?R10.9 - Unspecified abdominal pain (ICD-10) Abdominal pain ?R10.9 - Unspecified abdominal pain (ICD-10) Acute abdomen ?R10.0 - Acute abdomen (ICD-10) Intractable nausea and vomiting ?R11.2 - Nausea with vomiting, unspecified (ICD-10) Intractable abdominal pain ?R10.9 - Unspecified abdominal pain (ICD-10) Depression ?F32.A - Depression, unspecified (ICD-10) Asthma ?J45.909 - Unspecified asthma, uncomplicated (ICD-10) Dyspareunia Pelvic pain ?R10.2 - Pelvic and perineal pain (ICD-10) Ovarian cyst ?N83.209 - Unspecified ovarian cyst, unspecified side (ICD-10) PONV (postoperative nausea and vomiting) ?R11.2 - Nausea with vomiting, unspecified (ICD-10) ?Z98.890 - Other specified postprocedural states (ICD-10) PCOS (polycystic ovarian syndrome) ?E28.2 - Polycystic ovarian syndrome (ICD-10) Hypothyroidism (acquired) ?E03.9 - Hypothyroidism, unspecified (ICD-10) Anxiety ?F41.9 - Anxiety disorder, unspecified (ICD-10) GERD (gastroesophageal reflux disease) ?K21.9 - Gastro-esophageal reflux disease without esophagitis (ICD-10) Sleep apnea ?G47.30 - Sleep apnea, unspecified (ICD-10) Anemia ?D64.9 - Anemia, unspecified (ICD-10) Fibromyalgia ?M79.7 - Fibromyalgia (ICD-10) Syncope (07/07/13) ?R55 - Syncope and collapse (ICD-10) Shingles ?B02.9 - Zoster without complications (ICD-10) Headache ?R51.9 - Headache, unspecified (ICD-10) Migraine ?G43.909 - Migraine, unspecified, not intractable, without status migrainosus (ICD-10) Mechanical ileus (01/31/20) ?K56.609 - Unspecified intestinal obstruction, unspecified as to partial versus complete obstruction (ICD-10) COVID-19 (~02/2020) ?U07.1 - COVID-19 (ICD-10) Kidney stones ?N20.0 - Calculus of kidney (ICD-10) Surgical History (Updated 06/14/23 @ 16:55 by Marsha Du) S/P percutaneous endoscopic gastrostomy (PEG) tube placement ?Z93.1 - Gastrostomy status (ICD-10) 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 - Celiac artery compression syndrome (ICD-10) H/O shoulder surgery (2022) ?Z98.890 - Other specified postprocedural states (ICD-10) History of hip surgery ?Z98.890 - Other specified postprocedural states (ICD-10) S/P right knee arthroscopy ?Z98.890 - Other specified postprocedural states (ICD-10) S/P left knee arthroscopy ?Z98.890 - Other specified postprocedural states (ICD-10) Hx of tonsillectomy ?Z90.89 - Acquired absence of other organs (ICD-10) History of thoracic surgery (~2021) ?Z98.890 - Other specified postprocedural states (ICD-10) History of esophagogastroduodenoscopy (EGD) (10/04/13) ?Z98.890 - Other specified postprocedural states (ICD-10) History of cholecystectomy (10/06/13) ?Z90.49 - Acquired absence of other specified parts of digestive tract (ICD-10) Delivery by section (~2016) Delivery by section (01/17/18) H/O colonoscopy (~2018) ?Z98.890 - Other specified postprocedural states (ICD-10) S/P right knee arthroscopy (07/21/18) ?Z98.890 - Other specified postprocedural states (ICD-10) Delivery by section (06/19/19) History of appendectomy (09/25/19) ?Z90.49 - Acquired absence of other specified parts of digestive tract (ICD-10) H/O laparoscopy (11/10/19) ?Z98.890 - Other specified postprocedural states (ICD-10) History of liver biopsy (~04/2020) ?Z98.890 - Other specified postprocedural states (ICD-10) H/O laparoscopy (07/18/20) ?Z98.890 - Other specified postprocedural states (ICD-10) H/O arthroscopy of right knee (08/07/20) ?Z98.890 - Other specified postprocedural states (ICD-10) S/P laparoscopic sleeve gastrectomy (09/03/20) ?Z98.84 - Bariatric surgery status (ICD-10) H/O: hysterectomy (11/12/20) ?Z90.710 - Acquired absence of both cervix and uterus (ICD-10) History of hernia repair (03/20/21) ?Z98.890 - Other specified postprocedural states (ICD-10) ?Z87.19 - Personal history of other diseases of the digestive system (ICD-10) Family History (Updated 06/14/23 @ 16:56 by Marsha Du) Other Family history of cancer Family history of diabetes mellitus Family history of hypertension Family history of myocardial infarction PONV (postoperative nausea and vomiting) Social History (Updated 06/14/23 @ 16:57 by Marsha Du) Within the past year, how often did you have a drink containing alcohol: never Score interpretation: A score less than 3 is consistent with normal alcohol consumption. Smoking status: Never smoker Non-prescribed substance use: denies use Highest level of school completed/degree received: Master's degree Are you now , , , , never or living with a partner: In a typical week, how many times do you talk on the telephone with family, friends, or neighbors: 3 or more times per week How often do you get together with friends or relatives: twice per week How often do you attend yazdanism or mormonism services: 4 or more times per year Do you belong to any clubs or organizations such as yazdanism groups unions, [employer] or athletic groups, or school groups: no Total score: 3 Score interpretation: A score of greater than or equal to 2 indicates the lowest level of social isolation. Little interest or pleasure in doing things: not at all Feeling down, depressed, or hopeless: several days Feel stressed/tense/nervous/anxious/difficulty sleeping: to some extent Do you think of yourself as: straight/heterosexual Gender Identity: female Exam Constitutional Vital Signs, click to edit/add: Last Vital Signs Temp 98.4 F 09/23/23 16:50 Pulse 66 09/23/23 22:50 Resp 22 H 09/23/23 22:50 BP 117/69 09/23/23 22:34 Pulse Ox 100 09/23/23 16:50 Course Vital Signs Vital signs: Vital Signs Temperature 98.4 F 09/23/23 16:50 Pulse Rate 77 09/23/23 16:50 Respiratory Rate 18 09/23/23 16:50 Blood Pressure 149/99 H 09/23/23 16:50 Pulse Oximetry 100 09/23/23 16:50 Temperature 98.4 F 09/23/23 16:50 Pulse Rate 66 09/23/23 22:50 Respiratory Rate 22 H 09/23/23 22:50 Blood Pressure 117/69 09/23/23 22:34 Pulse Oximetry 100 09/23/23 16:50 MDM - Abdominal Pain Medical Records Medical records narrative: The [address] [address] [address] Scan Report Signed Patient: JUAN KONG MR#: [id number] : 1990 Acct:[id number] Age/Sex: 33 / F ADM Date: 09/23/23 Loc: ER Attending Dr: Ordering Physician: Vicky Bird Date of Service: 09/23/23 Procedure(s): CT abdomen pelvis w con Accession Number(s): [id number] cc: Thomas Alas M.D.~ The [address] [address] Patient Name: JUAN KONG MRN: [id number] date: 1990 Sex: F Assigned Patient Location: ER Current Patient Location: ER Accession/Order Number: [id number] Exam Date: 09/23/2023 21:20 Report Date: 09/23/2023 22:49 At the request of: VICKY BIRD Procedure: CT abdomen pelvis w con EXAM: CT abdomen pelvis w con HISTORY: abd pain po and IV contrast r/o intussusception . Left flank pain. History of stomach ulcers. COMPARISON: CT abdomen pelvis, 09/08/2023. TECHNIQUE: Oral and IV contrast enhanced CT imaging of the abdomen and pelvis was performed using 100 mL of Omnipaque 300 intravenous contrast. Sagittal and coronal reconstructions are provided. Dose reduction techniques were achieved by using automated exposure control and/or adjustment of mA and/or kV according to patient size and/or use of iterative reconstruction technique. FINDINGS: CT ABDOMEN: The lung bases are clear. Imaged heart is unremarkable. There are numerous hepatic cysts measuring up to 2.2 cm in the posterior right hepatic segment on image 18. Cholecystectomy clips are present with mild postoperative biliary ductal dilatation. The pancreas, spleen, adrenal glands, kidneys, aorta and IVC appear unremarkable. Isabel-en-Y gastric bypass is noted with intact anastomosis. Jejunostomy tube is in satisfactory position. The stomach and small bowel appear otherwise unremarkable. No peptic ulcer, intussusception or bowel obstruction is seen. CT PELVIS: The pelvic small bowel loops, colon and urinary bladder are unremarkable. Prior appendectomy is noted. The uterus and ovaries are not seen and may have been removed as well. No inflammatory fat stranding, free fluid, loculated fluid or free air is seen in the abdomen or pelvis. No acute osseous abnormality or suspicious bony lesion is seen. CT/CT abdomen pelvis w con IMPRESSION: 1. No acute gastrointestinal findings. Specifically, no peptic ulcer, intussusception or bowel obstruction is seen. Please note that intussusception is often a transient finding resolving spontaneously. 2. Isabel-en-Y gastric bypass with intact and unremarkable anastomosis. 3. Cholecystectomy with mild postoperative biliary ductal dilatation. This may be due to remote cholecystectomy. If clinical or laboratory findings suggest biliary obstruction, MRCP or ERCP could further evaluate. 4. Unremarkable kidneys. No urolithiasis, hydronephrosis or specific cause of left flank pain is seen. Electronically authenticated by: MAGDA MARIANO Date: 09/23/2023 22:49 Lab Data Labs: Lab Results 09/23/23 09/23/23 Range/Units 17:45 18:40 WBC 4.9 (4.0-11.0) 10^3/uL RBC 3.69 L (4.20-5.40) 10^6/uL Hgb 10.2 L (12.0-16.0) g/dL Hct 31.1 L (36.0-48.0) % MCV 84.3 (81.0-99.0) fL MCH 27.6 (26.7-34.0) pg MCHC 32.8 (29.9-35.2) g/dL RDW 13.8 (11.0-15.0) % Plt Count 289 (150-450) 10^3/uL MPV 10.5 (9.5-13.5) fL Neut % (Auto) 54.8 (43.0-75.0) % Lymph % (Auto) 35.0 (20.5-60.0) % [place] % (Auto) 8.0 (1.7-12.0) % Eos % (Auto) 1.4 (0.9-7.0) % Baso % (Auto) 0.6 (0.2-2.0) % Neut # (Auto) 2.7 (1.4-6.5) 10^3/uL Lymph # (Auto) 1.7 (1.2-3.8) 10^3/uL [place] # (Auto) 0.4 (0.3-0.8) 10^3/uL Eos # (Auto) 0.1 (0.0-0.7) 10^3/uL Baso # (Auto) 0.0 (0.0-0.1) 10^3/uL Abs Immat Gran (auto) 0.01 (0.00-0.03) 10^3/uL Imm/Tot Granulo (auto) 0.2 (0.0-0.5) % Sodium 139 (136-145) mmol/L Potassium 3.1 L (3.5-5.1) mmol/L Chloride 103 (98-107) mmol/L Carbon Dioxide 28.2 (21.0-32.0) mmol/L Anion Gap 10.9 BUN 7.0 (7.0-18.0) mg/dL Creatinine 0.80 (0.55-1.02) mg/dL Est GFR ( Amer) >60 (>=60) Est GFR (Non-Af Amer) >60 (>=60) BUN/Creatinine Ratio 8.8 Glucose 85 (74-106) mg/dL Calcium 8.6 (8.5-10.1) mg/dL Total Bilirubin 0.4 (0.2-1.0) mg/dL Direct Bilirubin 0.1 (0.0-0.2) mg/dL AST 31 (15-37) U/L ALT 33 (14-59) U/L Alkaline Phosphatase 58 (46-116) U/L Total Protein 6.5 (6.4-8.2) g/dL Albumin 3.6 (3.4-5.0) g/dL Globulin 2.9 g/dL Albumin/Globulin Ratio 1.2 Amylase 39 (25-115) U/L Lipase 35.0 (16.0-77.0) U/L Urine Color Lt. yellow (YELLOW) Urine Clarity Sl cloudy (CLEAR) Urine pH 7.0 (5.0-9.0) Ur Specific [place] 1.010 (1.005-1.025) Urine Protein Negative (NEG/TRACE) mg/dL Urine Glucose (UA) Negative (NEGATIVE) mg/dL Urine Ketones Negative (NEGATIVE) mg/dL Urine Occult Blood Negative (NEGATIVE) Urine Nitrite Negative (NEGATIVE) Urine Bilirubin Negative (NEGATIVE) Urine Urobilinogen 0.2 (0.2-1.0) EU/dL Ur Leukocyte Esterase Negative (NEGATIVE) Discharge Plan Discharge Stand Alone Forms: Portal Instructions Chief Complaint: Abdominal Pain Clinical Impression: Abdominal pain, Chronic abdominal pain Patient Disposition: Home, Self-Care Time of Disposition Decision: 23:03 Condition: Good Prescriptions / Home Meds: No Action hydroxyzine HCl 25 mg tablet 25 mg PO BID PRN (Reason: anxiety) liothyronine 5 mcg tablet 5 mcg PO QDAY topiramate 100 mg tablet 100 mg PO BID buspirone 10 mg tablet 10 mg PO TID methocarbamol 750 mg tablet 750 mg PO TID metoclopramide HCl 10 mg tablet 10 mg PO AC Linzess 290 mcg capsule 290 mcg PO DAILY albuterol sulfate 90 mcg/actuation HFA aerosol inhaler 2 puff INHALATION Q6H PRN (Reason: shortness of breath or wheezing) levothyroxine 75 mcg tablet 75 mcg PO .ACB escitalopram oxalate 20 mg tablet 20 mg PO DAILY mirtazapine 30 mg tablet 30 mg PO .HS pantoprazole 40 mg tablet,delayed release (DR/EC) 40 mg PO DAILY Nutrin 45 ml feeding tube Q1H Qty: 3000 11RF prochlorperazine maleate [Compazine] 10 mg tablet 10 mg PO Q6H PRN (Reason: nausea and vomiting) Qty: 60 3RF tramadol 50 mg tablet 50 mg PO Q6H PRN (Reason: pain) Qty: 28 0RF acetaminophen [Pain Relief (acetaminophen)] 325 mg tablet 650 mg PO Q4H PRN (Reason: pain) ondansetron 4 mg tablet,disintegrating 4 mg PO Q6H PRN (Reason: nausea and vomiting) Qty: 20 0RF prednisone 10 mg tablet 15 mg PO DAILY Print Language: Serbian Instructions: Chronic Abdominal Pain (DC) Referrals: Thomas Alas MD [Primary Care Provider] - 1 week
== END 2023-09-23 23:15 | disposition home or self-care (01) ==
PROVIDERS: Emergency Medicine; Emergency Provider Emergency Medicine; PCP Family Medicine
DX: R10.9 Unspecified abdominal pain (principal); G89.29 Other chronic pain; Z98.84 Bariatric surgery status
CPT/HCPCS: 36415; 36592; 74177; 80048; 80076; 81001; 81003; 82150; 83690; 85025; 93005; 96374; 96375; 99285; J2270; J2405; Q9966; Q9967

== ENCOUNTER 2023-09-25 11:04 | Outpatient (REF) | payer OTHER, SELFPAY ==
[2023-09-25 11:19] LABS: Basophils Percent Auto 0.5 % (0.2-2.0); Eosinophils Absolute Auto 0.1 10^3/uL (0.0-0.7); Eosinophils Percent Auto 1.3 % (0.9-7.0); Hematocrit 34.7 % (36.0-48.0); Hemoglobin 10.9 g/dL (12.0-16.0); Immature Granulocytes Abs Auto 0.02 10^3/uL (0.00-0.03); Immature Granulocytes Pct Auto 0.2 % (0.0-0.5); Lymphocytes Percent Auto 11.4 % (20.5-60.0); Mean Corpuscular HGB Conc 31.4 g/dL (29.9-35.2); Mean Corpuscular Hemoglobin 27.7 pg (26.7-34.0); Mean Corpuscular Volume 88.1 fL (81.0-99.0); Monocytes Absolute Auto 0.4 10^3/uL (0.3-0.8); Monocytes Percent Auto 4.8 % (1.7-12.0); Neutrophils Percent Auto 81.8 % (43.0-75.0); Platelet Count 294 10^3/uL (150-450); Red Blood Count 3.94 10^6/uL (4.20-5.40); Red Cell Distribution Width 14.3 % (11.0-15.0); White Blood Count 8.5 10^3/uL (4.0-11.0)
--- OUTSIDE RECORDS SUMMARY | 2023-09-25 11:26 | XMS_ITS | CCD ---
Author Organization [facility]ini[facility] Care Team Providers Care 3Rd Mate Name Role Phone PHYSICIAN, DEFAULT Unavailable Unavailable PHYSICIAN, DEFAULT Unavailable Unavailable Shanna June Primary Care Provider Unavail able Slade ENROLLMENT CLERK, Shanna Primary Care Provider Mona vailable Slade INVENTORY ADMINISTRATOR - AUTO DRIVER, Shanna Primary Care Provid er LUCIE MORA Attending Unavailable SHANNA JUNE Primary Care Unavailable SHANNA JUNE Referring Unavailable LUCIE MORA Attending Unavailable SHANNA JUNE Primary Care Unavailable SELF, SELF Referring Unavailable Antelmo Davey Unavailable [phone] Deacon Kat MD Unavailable Shanna June CNP Unavailable [phone] Shanna June CNP Primary Care Provider Antelmo Davey MD Unavailable Wally Foley Primary Care Provider Shanna June Unavailable Wally Foley Primary Care Provider Antelmo Davey MD Unavailable Deacon Kat MD Unavailable Shanna June CNP Unavailable Shanna June CNP Primary Care Provider Antelmo Davey MD Unavailable Deacon Kat MD Unavailable Shanna June CNP Unavailable [phone] Shanna June CNP Primary Care Provider Slade REAL ESTATE AGENT, Shanna Unavailable [phone] Slade REAL ESTATE AGENT, Shanna Primary Care Provider Tamica JOHNSON Edcharles Unger Unavailable Jacquelyn JOHNSON Deacon Gregory Unavailable Slade REAL ESTATE AGENT, Shanna Unavailable Slade REAL ESTATE AGENT, Shanna Primary Care Provider Wally Foley MD Primary Care Provider Jaquan Morrow Primary Care Physician [phone] Agustin Valentino Unavailable Jaquan Morrow Primary Care Provider [phone] FOLEY ., DR WALLY Graf Primary Care [...] Unavailable ZURDO ., DR BURCH Admitting Unavailable KING FERRY, DR BALDOMERO Campos Consulting Unavailable ZURDO ., [...] WALLY FOLEY Primary Care Unavailable EMMY WATSON [id number] Attending Unavailable WALLY FOLEY Primary Care Unavailable JD RAINEY Attending Unavailable WALLY FOLEY Primary Care Unavailable Shanna Roberts Primary Care Provider Mona vaDIMITRI Wolfe Attending Unavailable SLADE, SHANNA Primary Care Unavailable Giedraitis Michelle JOHNSON Attending Unavailable CRISTHIAN, JAQUAN Primary Care Unavailable CRISTHIAN, JAQUAN Primary Care Unavailable RODRIGUEZ Attending Unavailable CAMDEN RODRIGUEZ Admitting Unavailable CRISTHIAN, JAQUAN Primary Care Unavailable BRUNO WHEAT Consulting Unavailable CORIE HENDRICKSON Attending Unavailable Cristhian INVENTORY ADMINISTRATOR.Jaquan CAMPOS Primary Care Provider JAQUAN MORROW L Primary Care Unavailable VIC RAMOS Attending Unavailable VIC RAMOS Admitting Unavailable ZEYAD Morrow-C Jaquan Ortega Primary Care Provider DO Claus Obrien Emergency Provider GENERIC PROVIDER, NO ASSIGNED PCP Primary Care Unavailable Generic Provider , No Assigned Pcp Primary Car e Provider Unavailable Generic Provider , No Assigned Pcp Primary Car e Provider Unavailable Bullimore, ENROLLMENT CLERK-BC Trace E Emergency Provider Generic Provider , No Assigned Pcp Primary Car e Provider Unavailable Cristhian, 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 Jaquan Ortega Primary Care Provider [phone] Beverley [facility] Trace E Emergency Provider SLIM Parker Emergency Provider Cristhian INVENTORY ADMINISTRATOR.BETH, Jaquan L Primary Care Provider Generic Provider , No Assigned Pcp Primary Car e Provider Unavailable GENERIC PROVIDER, NO ASSIGNED PCP Primary Care Unavailable Deacon Kat MD Unavailable Generic Provider , No Assigned Pcp Primary Car e Provider Unavailable PABLO LEBRON Attending Unavailable CRISTHIAN, JAQUAN L Primary Care Unavailable BERNARDINO PABLO Jose Referring Unavailable BERNARDINO, PABLO Jose Attending Unavailable CRISTHIAN, JAQUAN L Primary Care Unavailable BERNARDINO, PABLO Jose Referring Unavailable BERNARDINO, PABLO Jose Attending Unavailable CRISTHIAN, JAQUAN L Primary Care Unavailable BERNARDINO, PABLO Sandy Attending Unavailable CRISTHIAN, JAQUAN L Primary Care Unavailable BERNARDINO, PABLO D Referring Unavailable BERNARDINO, PABLO D Attending Unavailable CRISTHIAN, JAQUAN L Primary Care Unavailable Cristhian, 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 Jaquan Ortega Primary Care Provider MD Thomas Calix Primary Care Provider GABRIELLA Sabillon Emergency Provider MD Tahir Whitt [...] NO ASSIGNED PCP Primary Care Unavailable PALOMO, MIGULE ANGEL Primary Care Unavailable EVE AGOSTO Consulting Unavailable SHERRY MAGAÑA Admitting Unavailable SHERRY MAGAÑA Attending Unavailable SHERRY MAGAÑA Consulting Unavailable GLOVATSJITENDRA BECKY Consulting Unavailable JAH-ULI, KURT Consulting Unavailable SHERRY [...] Mccoy. Attending Unavailable Earnest Jett Attending Unavailable Cristhian, Jaquan Johnson Attending Unavailable Cristhian, Jaquan L Attending Unavailable Cristhian, Jaquan Johnson Attending Unavailable Cristhian, Jaquan L Attending Unavailable Cristhian, Jaquan L Attending Unavailable Cristhian, Jaquan L Attending Unavailable Cristhian, Jaquan Johnson Attending Unavailable Lokesh Terry Attending Unavailable Cristhian, Jaquan Johnson Attending Unavailable Cristhian, Jaquan L Attending Unavailable Cristhian, Jaquan L Attending Unavailable Cristhian, Jaquan L Admitting Unavailable Cristhian, Jaquan L Admitting Unavailable Cristhian, Jaquan L Admitting Unavailable Cristhian, Jaquan L Attending Unavailable Cristhian, Jaquan L Attending Unavailable Cristhian, Jaquan L Attending Unavailable Cristhian, Jaquan L Attending Unavailable [...] UnavailMD Jon Stahl Talal Consulting Unava ilable Chacho Riverahammad Talal Consulting Unavaila ble April Riveramad Talal Consulting Unavaila ble Adamowicz, Gabino Consulting Unavailable Adamowicz, DO Gabino Consulting Unavailabl e Adamowicz, Gabino Consulting Unavailable Adamowicz, Gabino Consulting Unavailable Adamowicz, Gabino Consulting Unavailable Adamowicz, Gabino Consulting Unavailable Adamowicz, Gabino Consulting Unavailable Adamowicz, Gabino Consulting Unavailable Adamowicz, Gabino Consulting Unavailable DO Claus Obrien Emergency Provider MARCOS MORENO Attending Unavailable JR. KELVIN, TINO Abbasi Attending Unavaila rogelio WARREN JR., TINO Abbasi Referring Unavaila rogelio WARREN JR., TINO Abbasi Attending Unavaila ble Thomas Calix Primary Care Unavailable Michael, Yazid Admitting Unavailable Michael, Yazid Attending Unavailable Keven Kimbrough Consulting Unavailable Hoy, Thomas M Primary Care Unavailable MarisaJeramy Admitting Unavailable Marisa, Jeramy M Attending Unavailable Gabino Parker Admitting Unavailable Gabino Parker Attending Unavailable Cristhian, Jaquan Shannon Primary Care Unavailable BullTrace duque E Attending Unavailable Cristhian, Jaquan Shannon Primary Care Unavailable Bullimore, Trace E Admitting Unavailable Keister, Claus A Admitting Unavailable Keister, Claus A Attending Unavailable Cristhian, Jaquan Shannon Primary Care Unavailable Hoy, Thomas M Primary Care Unavailable Keister, Claus A Admitting Unavailable Keister, Claus A Attending Unavailable Shaan Sabillon Admitting Unavailable Shaan Sabillon Attending Unavailable Galoy, Thomas M Primary Care Unavailable HOY, THOMAS M Primary Care Unavailable LOKESH GATICA MD Attending Unavailable RAYNA BILLINGSLEY Attending Unavailable JACOBO LYNCH Admitting Unavailable CRISTHIAN, JAQUAN L Primary Care Unavailable CHEYENNE FARNSWORTH Consulting Unavailable CRISELDA NO Admitting Unavailable CHETNA NESS Consulting Unavailable LUCY MAIDANA Attending Unavailable CRISTHIAN, JAQUAN L Primary Care Unavailable DEACON KAT Referring Unavailable CRISTHIAN, JAQUAN L Primary Care Unavailable JACKSON ANDERSON Referring Unavailab KEESHA Cook Attending Unavailable CRISTHIAN, JAQUAN L Primary Care Unavailable BEATRICE, RASHMI Admitting Unavailable ADIBI, STEVE Attending Unavailable CRISTHIAN, JAQUAN L Primary Care Unavailable ELISA VIVEROS Consulting Unavailable HOY, THOMAS M Primary Care Unavailable ANTONIETTA ÁLVAREZ Attending Unavailable MANICKAM, SUNDARA Attending Unavailable ADIBI, STEVE Admitting Unavailable HAYDEE, KHALED Consulting Unavailable CRISTHIAN, JAQUAN L Primary Care Unavailable MANICKAM, SUNDARA Attending Unavailable HOY, THOMAS M Primary Care Unavailable LIBBY URBINA Admitting Unavailable MD STALEY CHRISTOPHER Attending Eva CALIX, THOMAS M Primary Care Unavailable CORIE CRAFT Attending Unavailable HOAime, THOMAS M Primary Care Unavailable KASIE AVALOS Referring Unavailable HOY, THOMAS M Primary Care Unavailable KASIE AVALOS Attending Unavailable YOGI, THOMAS M Primary Care Unavailable CRISTHIAN, JAQUAN ORTEGA Primary Care Unavailable RYLEE THACKER Attending Unavailable RYLEE THACKER Referring Unavailable XIOMARA MARTINEZ Attending Unavailable CRISTHIAN, JAQUAN SHANNON Primary Care Unavailable CRISTHIAN, JAQUAN SHANNON Primary Care Unavailable SHANNA WOODS Attending Unavailable ROMIE HAIRSTON Admitting Unavailable CRISTHIAN, JAQUAN SHANNON Primary Care Unavailable THACKERRYLEE Ahumada Attending Unavailable THACKER, RYLEE Referring Unavailable BOOGIE MURGUIA Attending Unavailable THOMAS CALIX Primary Care Unavailable VIC RAMOS Referring Unavailable VIC RAMOS Attending Unavailable THOMAS CALIX M Primary Care Unavailable JOLEENPHAKASIE JOSEPH Referring Unavailable BRITT BRADSHAW Attending Unavailable THOMAS CALIX M Primary Care Unavailable DEACON KAT Attending Unavailable THOMAS CALIX M Primary Care Unavailable CRISTHIAN, JAQUAN SHANNON Primary Care Unavailable DEACON KAT Attending Unavailable CRISTHIAN, JAQUAN SHANNON Primary Care Unavailable VIC RAMOS Attending Unavailable CRISTHIAN, JAQUAN SHANNON Primary Care Unavailable KARINA العلي Attending Unavailable SEN MARCUS Admitting Unavaila ble SHANNA WOODS Attending Unavailable THOMAS CALIX Primary Care Unavailable CRISTHIAN, JAQUAN SHANNON Primary Care Unavailable SELF Referring Unavailable DEACON KAT Attending Unavailable CRISTHIAN, JAQUAN SHANNON Primary Care Unavailable KASIE AVALOS Attending Unavailable MARCOS MORENO Referring Unavailable FRANCISCO J STEVE Attending Unavailable CRISTHIAN, JAQUAN SHANNON Primary Care Unavailable THOMAS CALIX Primary Care Unavailable CRISTHIAN, JAQUAN SHANNON Primary Care Unavailable DEACON KAT Attending Unavailable VIC RAMOS Attending Unavailable CRISTHIAN, JAQUAN SHANNON Primary Care Unavailable BREANNA STERN Attending Unavailable DEACON KAT Referring Unavailable CRISTHIAN, JAQUAN SHANNON Primary Care Unavailable CRISTHIAN, JAQUAN SHANNON Primary Care Unavailable DEACON KAT Referring Unavailable DEACON KAT Attending Unavailable CRISTHIAN, JAQUAN SHANNON Primary Care Unavailable RYLEE THACKER Attending Unavailable RYLEE THACKER Referring Unavailable CRISTHIAN, JAQUAN SHANNON Primary Care Unavailable AGUSTIN ZAMORANO Attending Unavailable CRISTHIAN, JAQUAN SHANNON Primary Care Unavailable THOMAS CALIX Primary Care Unavailable CRISTHIAN, JAQUAN SHANNON Primary Care Unavailable BREANNA STERN Referring Unavailable JOLEENPHAKASIE JOSEPH Referring Unavailable THOMAS CALIX Primary Care Unavailable Allergies Allergy Classification Reported Allergen(s) Allergy Type Date of Onset Reaction(s) Facility NSAIDs (1 source) NSAIDs; Translations: [NSAIDS (NON-STEROIDAL ANTI-INFLAMMATOR Y DRUG)] Drug Allergy 01-30-20 [facility] Other [place] Repository Opioid Agonists (8 sources) Codeine; Translations: [CODEINE] Drug Allergy 10-04-19 GI Upset [facility] Other [place] Repository (5 sources) Codeine And Related Propensity to adverse reactions to drug 07-08-19 14 Other (See Comments), Nausea And Vomiting [facility] (20 sources) Codeine; Translations: [codeine] Drug Allergy 10-04-19 GI Upset, Nausea/vomitin g [facility] (3 sources) Propofol Drug Allergy 06-19-19 Other: See Comments [facility] (20 sources) Adhesive Tape-Silicones; Translations: [ADHESIVE TAPE-SILICONES] Drug Intolerance 02-07-20 Intolerance [facility] (2 sources) Morphine And Related Propensity to adverse reactions to drug 07-08-19 Other (See Comments), Nausea And Vomiting [facility] (7 sources) Codeine Drug Allergy vomiting [facility] [employer] Other (4 sources) Acetaminophen / oxyCODONE Drug Allergy anaphylaxis [facility] [employer] Other (20 sources) Non-steroidal anti-inflammator y agent; Translations: [NSAIDS (NON-STEROIDAL ANTI-INFLAMMATOR Y DRUG)] Propensity to adverse reactions to drug 01-30-20 Contraindicati on-Medical Surgical, Nausea/vomitin g [facility] Work Phone: (1 source) Codeine Drug Allergy 07-08-19 14 [facility] Repository (1 source) Anastia Drug allergy (disorder) [facility] Repository (15 sources) Non-steroidal anti-inflammator y agent; Translations: [NSAIDs] Drug allergy Unknown (qualifier value) [facility] (2 sources) Acetaminophen; Translations: [acetaminophen] Drug Allergy 04-06-19 anaphylaxis [facility] (8 sources) oxyCODONE; Translations: [oxycodone] Drug Allergy 04-06-19 anaphylaxis [facility] (6 sources) NSAIDS (Non-Steroidal Anti-Inflamma; Translations: [NSAIDS (Non-Steroidal Anti-Inflamma] Propensity to adverse reactions 07-16-19 24 d/t surgery [facility] (1 source) Codeine Drug Allergy 08-21-19 [facility] Repository Medications Current Medications Medication Drug Class(es) Dates Sig (Normalized) Sig (Original) minipill Birthcontrol (2 sources) Start: 03-07-2018 minipill Birthcontrol minipill Birthcontrol, Daily Start Date: 03/07/18 Status: Ordered acetaminophen 325 mg / butalbital 50 mg / caffeine 40 mg oral tablet (15 sources) Barbiturate, Central Nervous System Stimulant, Methylxanthine [...] tab(s), Oral, BID, 30 tab(s), Refill(s) 0, [facility]/pharmacy #[id number], 167.2, cm, 05/05/22 13:30:00 EDT, [...] Start: 03-10-2023 take 1 tablet by robinson every four hours for pain oxyCODONE-acetaminophen (Percocet) [...] day(s), # 28 tab(s), Refills(s) 0, Pharmacy: [facility]/pharmacy #[id number], 168, cm, 06/17/22 10:54:00 EDT, [...] 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 [id number] 200 actuat albuterol 0.09 mg/actuat metered dose [...] puff(s), Inhalation, q6hr, 18 gm, Refill(s) 3, [facility]/pharmacy #[id number], 167, cm, 05/17/23 14:25:00 EDT, Height/Length Dosing, 81, kg, 05/17/23 14:25:00 EDT, Weight Dosing Start Date: 05/31/23 Status: Ordered Start: 12-30-2022 take 2 puff(s) by in halation every six hours Albuterol (Eqv-Ventolin HFA) 90 mcg/inh inhalation aerosol 2 puff(s), Inhalation, q6hr, 18 gm, Refill(s) 0, [facility]/pharmacy #[id number], 168, cm, 12/29/22 15:01:00 EST, [...] day(s), # 6 tab(s), Refills(s) 0, Pharmacy: [facility]/pharmacy #[id number], 168, cm, 12/29/22 15:01:00 EST, [...] on above: Take 2 tablets by mo [facility] three times a day as needed [...] day(s), # 21 cap(s), Refills(s) 0, Pharmacy: [facility]/pharmacy #[id number], 168, cm, 12/29/22 15:01:00 EST, [...] Start: 02-13-2023 take 1 tablet by robinson th twice daily Buspirone (Buspar) 15 mg Tablet [...] there on Take 1 tablet by robinson twice daily. Calcium (7 sources) Phosphate Binder, Calcium Calciu m Active ciprofloxacin 500 mg oral tablet (1 source) Quinolone Antimicrobial Start: 06-17-2022 End: 06-27-2022 take 1 tablet by mouth every twelve hours ciprofloxacin 500 mg Tab 500 mg = 1 tab(s), Oral, q12hr, X 10 day(s), # 20 tab(s), Refills(s) 0, Pharmacy: [facility]/pharmacy #[id number], 168, cm, 06/17/22 10:54:00 EDT, [...] day(s), # 28 tab(s), Refills(s) 0, Pharmacy: [facility]/pharmacy #[id number], 167, cm, 05/06/23 15:49:00 EDT, Height/Length Dosing, 82.7, kg, 05/06/23 15:49:00 EDT, Weight Dosing Start Date: 05/06/23 Stop Date: 05/13/23 Status: Ordered Start: 04-02-2023 take 2 capsules by m outh four times daily Bentyl 10 mg Cap 20 mg = 2 cap(s), Oral, QID, # 20 cap(s), Refills(s) 0, Pharmacy: [facility]/pharmacy #[id number], 167, cm, 04/02/23 11:01:00 EST, Height/Length Dosing, 82.7, kg, 04/02/23 11:01:00 EST, Weight Dosing Start Date: 04/02/23 Status: Ordered Start: 06-05-2022 End: 06-15-2022 take 1 capsule by mouth four times daily Bentyl 10 mg Cap 10 mg = 1 cap(s), Oral, QID, X 10 day(s), # 40 cap(s), Refills(s) 0, Pharmacy: [facility]/pharmacy #[id number], 167.2, cm, 05/05/22 13:30:00 EDT, Height/Length Dosing, 84.5, kg, 05/05/22 13:30:00 EDT, Weight Dosing Start Date: 06/05/22 Stop Date: 06/15/22 Status: Ordered Start: 12-20-2020 take 2 capsules by m outh four times daily Bentyl 10 mg Cap 20 mg = 2 cap(s), Oral, QID, # 20 cap(s), Refills(s) 0, Pharmacy: [facility]/pharmacy #[id number], 167, cm, 12/20/20 9:30:00 EDT, [...] on above: Take 1 capsule by mo [facility] three times daily. decrease the dose or [...] BID, # 20 cap(s), Refills(s) 0, Pharmacy: [facility]/pharmacy #[id number], 167.2, cm, 05/05/22 13:30:00 EDT, Height/Length Dosing, 84.5, kg, 05/05/22 13:30:00 EDT, Weight Dosing Start Date: 05/29/22 Status: Ordered Start: 03-31-2021 take 1 capsule by [facility] every twelve hours Doxycycline Monohydrate 100 MG 1 capsule Orally every 12 hrs for 7 days Mar, Active DULoxetine 60 mg oral capsule (15 sources) Serotonin and Norepinephrine Reuptake Inhibitor Start: 01-16-2021 take 60 mg by mouth twice daily Cymbalta 60 mg, Oral, BID, Refills(s) 0 Start Date: 01/16/21 Status: Ordered Start: 10-14-2019 take 1 capsule by [facility] every twelve hours DULoxetine HCl 60 MG 1 capsule Orally Twice a day for 90 days Sep, Active take 1 capsule by [facility] twice daily DULoxetine (CYMBALTA) 30 MG [...] Comment on above: Take 1 tablet by [facility] once daily. ferrous sulfate 325 mg oral [...] Active Start: 01-20-2021 take 1 capsule by [facility] once daily, then take 1 capsule by mouth twice daily, then take 1 capsule by mouth three times daily gabapentin 300 mg Cap See Instructions, 1 cap(s) Oral daily x 1 day, 1 tab BID x 1 day, then 1 tab TID thereafter., # 90 cap(s), Refills(s) 0, Pharmacy: [facility]/pharmacy #[id number], 167, cm, 01/16/21 13:32:00 EST, Height/Length Dosing, [...] tablet (20 sources) Antihistamine Start: 06-03-2023 End: 07-17-2024 take 1 tablet by mouth twice daily [...] Daily, # 60 tab(s), Refills(s) 1, Pharmacy: [facility]/pharmacy #[id number], 167, cm, 04/02/23 11:01:00 EST, Height/Length Dosing, 82.7, kg, 04/02/23 11:01:00 EST, Weight Dosing Start Date: 05/03/23 Status: Ordered Start: 03-03-2023 take 1 tablet by robinson once daily levothyroxine 100 mcg (0.1 mg) Tab 100 mcg = 1 tab(s), Oral, Daily, # 90 tab(s), Refills(s) 0, Pharmacy: [facility], 168, cm, 02/03/23 14:52:00 EST, Height/Length Dosing, 85.5, kg, 02/03/23 14:52:00 EST, Weight Dosing Start Date: 03/03/23 Status: Ordered Start: 10-05-2022 take 1 tablet by robinson once daily levothyroxine 100 mcg (0.1 mg) Tab 100 mcg = 1 tab(s), Oral, Daily, # 30 tab(s), Refills(s) 1, [id number] 168, cm, 07/29/22 8:44:00 EDT, Height/Length Dosing, 81, kg, 07/29/22 8:44:00 EDT, Weight Dosing Start Date: 10/05/22 Status: Ordered Start: 07-22-2022 take 1 tablet by robinson th once daily levothyroxine 125 mcg (0.125 mg) Tab See Instructions, TAKE 1 TABLET BY MOUTH EVERY DAY, # 30 tab(s), Refills(s) 2, Pharmacy: [facility] [id number], 168, cm, 07/20/22 10:48:00 EDT, Height/Length Dosing, 81.1, kg, 07/20/22 10:48:00 EDT, Weight Dosing Start Date: 07/22/22 Status: Ordered Start: 04-23-2022 take 1 tablet by robinson once daily levothyroxine 125 mcg (0.125 mg) Tab 125 mcg = 1 tab(s), Oral, Daily, # 90 tab(s), Refills(s) 0, [id number] 167.6, cm, 04/15/21 22:31:00 EST, Height/Length [...] on above: Take 1 capsule by mo [facility] DAILY (6 AM). Take 1 capsule by mo [facility] daily at 6 am. liothyronine sodium 0.005 mg oral tablet (20 sources) l-Triiodothyronin e Start: 03-03-2023 take 1 tablet by mouth once daily liothyronine 5 mcg Tab 5 mcg, Oral, Daily, # 90 tab(s), Refills(s) 3, Pharmacy: [facility], 168, cm, 02/03/23 14:52:00 EST, Height/Length Dosing, 85.5, kg, 02/03/23 14:52:00 EST, Weight Dosing Start Date: 03/03/23 Status: Ordered Start: 11-25-2022 take 1 tablet by robinson once daily liothyronine 5 mcg Tab 5 mcg, Oral, Daily, # 90 tab(s), Refills(s) 3, Pharmacy: [facility]/pharmacy #[id number], 168, cm, 11/25/22 11:03:00 EDT, Height/Length Dosing, 82.5, kg, 11/25/22 11:03:00 EDT, Weight Dosing Start Date: 11/25/22 Status: Ordered Start: 05-21-2022 take 1 tablet by robinson once daily liothyronine 5 mcg Tab 5 mcg, Oral, Daily, # 90 tab(s), Refills(s) 1, Pharmacy: [facility]/pharmacy #[id number], 167.2, cm, 05/05/22 13:30:00 EDT, [...] dizziness, # 30 tab(s), Refills(s) 0, Pharmacy: [facility]/pharmacy #[id number], 168, cm, 06/10/22 10:57:00 EDT, Height/Length Dosing, 83.7, kg, 06/10/22 10:57:00 EDT, Weight Dosing Start Date: 06/10/22 Status: Ordered metFORMIN hydrochloride 1000 mg oral tablet (6 sources) Biguanide Start: 03-04-2018 take 1000 mg by mouth twice daily metformin 1,000 mg, Oral, BID, Refills(s) 0, Blood glucose Start Date: 03/04/18 Status: Ordered take 2 tablets by mo [facility] twice daily at mealtime metformin 500 [...] Start: 06-02-2023 take 1 tablet by robinson th twice daily Robaxin-750 oral tablet 750 mg [...] day(s), # 21 tab(s), Refills(s) 0, [id number] 168, cm, 12/29/22 15:01:00 EST, Height/Length Dosing, 83.8, kg, 12/29/22 15:01:00 EST, Weight Dosing Start Date: 12/29/22 Stop Date: 01/04/23 Status: Ordered Start: 07-20-2022 End: 07-26-2022 Medrol 4 mg Tab = 1 packet(s ), Oral, As Directed, as directed on package labeling, X 6 day(s), # 21 tab(s), Refills(s) 0, [id number] 168, cm, 07/20/22 10:48:00 EDT, [...] labeling, # 21 tab(s), Refills(s) 0, Pharmacy: [facility]/pharmacy #[id number], 167, cm, 04/02/23 11:01:00 EST, Height/Length Dosing, 82.7, kg, 04/02/23 11:01:00 EST, Weight Dosing Start Date: 04/20/23 Status: Ordered metoclopramide 10 mg oral tablet (20 sources) Dopamine-2 Receptor Antagonist Start: 09-18-2023 End: 09-25-2023 take 1 tablet by mouth every six hours as needed metoclopramide HCl (REGLAN) 10 mg tablet Take 1 tablet by mouth every 6 hours as needed for up to 7 days. 20 tablet 0 09/18/2023 09/25/2023 Active Start: 08-14-2023 take 1 tablet by robinson th every six hours Metoclopramide Hcl (Reglan) 10 [...] day(s), # 30 tab(s), Refills(s) 0, Pharmacy: [facility]/pharmacy #[id number], 168, cm, 06/17/22 10:54:00 EDT, Height/Length Dosing, 83.1, kg, 06/17/22 10:54:00 EDT, Weight Dosing Start Date: 06/17/22 Stop Date: 06/27/22 Status: Ordered midodrine hydrochloride 5 mg oral tablet (15 sources) alpha-Adrenergic Agonist Start: 08-06-2023 take 1 [...] TABLET BY [facility]INSON TH DAILY AT BEDTIME [facility] [place] (1 source) Start: 06-11-19 [facility] [place] Start Date: 06/11/23 Status: Ordered 1 [...] 0 Start Date: 05/05/22 Status: Ordered Naltrexone (20 sources) Opioid Antagonist Start: 08-25-2023 naltrexone 1 .5 mg capsule (CPD) Indications: Gastroesophageal reflux disease without esophagitis , Neuralgia and neuritis , Median arcuate ligament syndrome (HCC) , Chronic abdominal pain , S/P gastric bypass Take 1 capsule daily at 9 pm. May increase to 2 capsules if no relief after 2 weeks. Do not use calcium as a pillow filler preparation. If insomnia or vivid dreams [...] weeks. Do not use calcium as a pillow filler preparation. If insomnia or vivid dreams [...] weeks. Do not use calcium as a pillow filler preparation. If insomnia or vivid dreams [...] weeks. Do not use calcium as a pillow filler preparation. If insomnia or vivid dreams [...] Run for 18 hours, off 6 hours. 56869 mL 3 05/29/2023 06/09/2023 Discontinued Start: 05-29-2023 End: 08-27-2023 nutritional supplements (NUT PIPO 2.0) 0.08 gram-2 kcal/mL liqd 45 mL/hr by FEEDING TUBE route once daily. Run for 18 hours, off 6 hours. 04063 mL 3 05/29/2023 08/27/2023 Active Start: 05-28-2023 End: 08-26-2023 nutritional supplements (NUT PIPO 2.0) 0.08 gram-2 kcal/mL liqd 45 mL/hr by FEEDING TUBE route once daily. Run for 18 hours, off 6 hours. 48234 mL 3 05/28/2023 08/26/2023 Active Comment on above: 45 mL/hr by FEEDING TUBE route once daily. Run for 18 hours, off 6 hours. nystatin 325022 unt/ml oral suspension (1 source) Polyene Antifungal [...] tablet (20 sources) Serotonin-3 Receptor Antagonist Start: 09-12-19 take 1 tablet by mouth every eight hours as needed ondansetron orally disintegrating (ZOFRAN ODT) 8 mg disintegrating tablet Take 1 tablet by mouth every 8 hours as needed for nausea/vomiting. 20 tablet 0 09/12/2023 Active Start: 08-08-2023 take 1 tablet by robinson th every eight hours as needed ondansetron orally [...] q6hr, # 12 tab(s), Refills(s) 0, Pharmacy: [facility]/pharmacy #[id number], 168, cm, 06/07/22 10:23:00 EDT, Height/Length Dosing, 83, kg, 06/07/22 10:23:00 EDT, Weight Dosing Start Date: 06/07/22 Status: Ordered Start: 07-27-2021 End: 07-27-2021 ondansetron (ZOFRAN) injecti on 4 mg Start: 12-28-2020 take 1 tablet by robinson th three times daily Zofran ODT 4 mg Tab 4 mg = 1 tab(s), Oral, TID, # 10 tab(s), Refills(s) 0, Pharmacy: [facility]/pharmacy #[id number], 167, cm, 12/20/20 9:30:00 EDT, [...] pain, # 12 cap(s), Refills(s) 0, Pharmacy: [facility]/pharmacy #[id number], 167, cm, 05/12/23 9:37:00 EDT, Height/Length Dosing, 79.8, kg, 05/12/23 9:37:00 EDT, Weight Dosing Start Date: 05/14/23 Status: Ordered Start: 05-09-2023 End: 05-12-2023 take 1 tablet by mouth every six hours oxyCODONE 5 mg Tab 5 mg = 1 tab(s), Oral, q6hr, X 3 day(s), # 10 tab(s), Refills(s) 0, Pharmacy: [facility]/pharmacy #[id number], 167, cm, 05/09/23 11:51:00 EDT, [...] up to 5 doses. polyethylene glycol 3350 08227 mg powder for oral solution (20 sources) [...] Start: 06-23-2022 End: 06-09-2023 polyethylene glycol 3350 (CO RALAX) 17 gram/dose powder Take 17 g [...] Nausea/Vomiting, # 6 EA, Refills(s) 0, Pharmacy: [facility]/pharmacy #[id number], 167, cm, 05/06/23 15:49:00 EDT, [...] TID, # 15 tab(s), Refills(s) 0, [id number], cm, 10/20/22 8:21:00 EDT, Height/Length Dosing, 85.6, kg, 10/20/22 8:21:00 EDT, Weight Dosing Start Date: 10/20/22 Status: Ordered Start: 06-10-2022 take 1 tablet by robinson th every four hours promethazine 12.5 mg oral tablet 12.5 mg = 1 tab(s), Oral, q4hr, # 60 tab(s), Refills(s) 0, Pharmacy: [facility]/pharmacy #[id number], 168, cm, 06/10/22 12:37:00 EDT, Height/Length Dosing, 83.7, kg, 06/10/22 12:37:00 EDT, Weight Dosing Start Date: 06/10/22 Status: Ordered Start: 12-20-2020 take 1 tablet by robinson every six hours as needed for nausea promethazine 25 mg Tab 25 mg = 1 tab(s), Oral, q6hr, PRN as needed for nausea/vomiting, # 12 tab(s), Refills(s) 0, [id number] 167, cm, 12/20/20 9:30:00 EDT, [...] Nausea, # 20 tab(s), Refills(s) 0, Pharmacy: [facility]/pharmacy #[id number], 167, cm, 05/12/23 9:37:00 EDT, Height/Length Dosing, 79.8, kg, 05/12/23 9:37:00 EDT, Weight Dosing Start Date: 05/14/23 Status: Ordered Start: 04-02-2023 End: 04-16-2023 sucralfate 1 g/10 mL Oral Nance sp 10 mL 1 gm = 10 mL, Oral, QIDACHS, X 14 day(s), # 560 mL, Refills(s) 0, Pharmacy: [facility]/pharmacy #[id number], 167, cm, 04/02/23 11:01:00 EST, [...] QID, # 280 mL, Refills(s) 0, Pharmacy: [facility]/pharmacy #[id number], 168, cm, 10/19/22 8:44:00 EDT, [...] Daily, # 10 cap(s), Refills(s) 0, Pharmacy: [facility]/pharmacy #[id number], 168, cm, 06/17/22 10:54:00 EDT, [...] Nausea/Vomiting, # 12 tab(s), Refills(s) 0, Pharmacy: [facility]/pharmacy #[id number], 167, cm, 05/06/23 15:49:00 EDT, [...] 7 days. Take 2 tablets by mo ut every 6 hours as needed for pain [...] 08-30-2021 bupivacaine-EPINEP Hrine PF (MARCAINE-w/EPINEP HRINE) 0.5% -1:377582 injection 10 mL calcium chloride 0.001 meq/ml [...] Refill(s) 0, Take 1 puff 2x daily., [facility]/pharmacy #[id number], 168, cm, 12/29/22 15:01:00 EST, [...] kcal/mL liqd TF for PEG-J Rate: 45cc/hr 21361 mL 1 05/26/2023 06/09/2023 Discontinued Start: 05-26-2023 nutritional nance pplements (NUTREN 1.5) 0.07 gram-1.5 kcal/mL liqd TF for PEG-J Rate: 45cc/hr 83535 mL 1 05/26/2023 Active Start: 05-21-2023 End: [...] Start: 05-14-2023 take 1 tablet by robinson th once daily Pantoprazole [address] Tab 40 mg = 1 tab(s), Oral, Daily, # 30 tab(s), Refills(s) 0, Pharmacy: [facility]/pharmacy #[id number], 167, cm, 05/12/23 9:37:00 EDT, [...] tablet (2 sources) Start: 10-24-19 End: 03-10-19 24 take 1 tablet by mouth once daily [...] sodium chloride 0.9% 50 mL IV sennosides, fci 8.6 mg oral tablet (10 sources) Start: [...] on above: Take 2 tablets by mo ut daily at bedtime. decrease the dose or stop for diarrhea simethicone 80 mg chewable tablet (9 sources) Start: 06-24-19 End: 09-23-19 take 2 tablets by mouth every six hours as needed simethicone, chewable (MYLICON) 80 mg chewable tablet Take 2 tablets by mouth four times daily as needed. 120 tablet 1 06/23/2022 09/22/2022 Discontinued Comment on above: Take 2 tablets by mo ut four times daily as needed. solifenacin succinate [...] pain severe (7-10), first line, Starting on [facility] 07/01/23 at 1106, If ordered PRN for [...] pain, # 30 tab(s), Refills(s) 0, Pharmacy: [facility]/pharmacy #[id number], 168, cm, 06/26/22 14:12:00 EDT, [...] Acute and unspecified renal failure (3 sources) Qjbmn-qj-gohmgcf renal failure; Translations: [Acute kidney failure, unspecified] Onset: 4 06-29-2023 Episodic Anxiety disorders (20 sources) Posttraumatic stress disorder; Translations: [Reaction to severe stress, unspecified] Onset: 0 11-21-2019 Chronic Anxiety disorders (20 sources) Panic disorder without agoraphobia; Translations: [Panic disorder [episodic paroxysmal anxiety]] Onset: 0 Resolved: 2 04-08-2020 Chronic Aspiration pneumonitis; food/vomitus (19 sources) Pneumonitis due to inhalation of vomitus; [...] 4 Chronic Other aftercare (1 source) 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; Translations: [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] Onset: 3 Episodic Other [...] (HCC)] Onset: 3 Chronic Other circulatory disease (15 sources) Idiopathic hypotension; Translations: [Idiopathic hypotension] Onset: 4 08-06-2023 Episodic Other connective tissue disease (9 sources) Neuropathy; Translations: [Neuralgia and neuritis, unspecified] [...] 3 Resolved: 4 Episodic Other gastrointestinal disorders (6 sources) Diarrhea, [...] caused by tuberculosis or sexually transmitted disease) (17 sources) Pneumonia, unspecified organism; Translations: [Community acquired [...] damage to nail, initial encounter] Episodic Syncope (20 sources) Syncope and collapse; Translations: [Syncope and [...] status] Onset: 10-26-2022 Episodic Other gastrointestinal disorders (14 sources) Bariatric surgery status; Translations: [Bariatric surgery [...] endocrine; and metabolic disorders (1 source) Other symptoms and signs concerning food and fluid intake; Translations: [Decreased oral intake] Onset: 05-25-2023 Episodic Other nutritional; endocrine; and metabolic [...] Name Value Interpretation Reference Range Facil ity ED Triage Noteon 09-22-2023 ED Triage Note Normal [facility] BETA HCG, QUANTITATIVE FOR E Don 09-18-2023 HCG.beta subunit Qn m[IU]/mL Normal <5.0 [facility] Comment on above: Order Comment: Speci men Type: BLOOD SPECIMENOrdering Facility: [facility] Address: [address] [place] [address] Result Comment: Nega timarcia Performed By: #### 2 4323-8, HCGED, 60333-7, 3040-3 ####[facility] LABORATORYCLIA [id number] [facility] [address] [place] CBC W Auto Differential pane l (Bld)on 09-18-2023 Basophils (Bld) [#/Vol] 0.03 10*3/uL Normal <0.11 [facility] Comment on above: Order Comment: Speci men Type: BLOOD SPECIMENOrdering Facility: [facility] Address: [address] [place] [address] Performed By: #### 5 7021-8 ####[facility] LABORATORYCLIA [id number] [place] [address] [place] Basophils/100 WBC (Bld) 0.6 % Normal [facility] Comment on above: Order Comment: Speci men Type: BLOOD SPECIMENOrdering Facility: [facility] Address: [address] [place] [address] Performed By: #### 5 7021-8 ####[facility] [id number] [place] [address] [place] Differential cell count method Nom (Bld) Auto Normal [facility] Comment on above: Order Comment: Speci men Type: BLOOD SPECIMENOrdering Facility: [facility] Address: [address] [place] [address] Performed By: #### 5 7021-8 ####[facility] LABORATORYIA [id number] [place] [address] [place] Eosinophils (Bld) [#/Vol] 10*3/uL Normal <0.46 [facility] Comment on above: Order Comment: Speci men Type: BLOOD SPECIMENOrdering Facility: [facility] Address: [address] [place] [address] Performed By: #### 5 7021-8 ####[facility] LABORATORYCLIA [id number] [place] [address] [place] Eosinophils/100 WBC (Bld) 0.2 % Normal [facility] Comment on above: Order Comment: Speci men Type: BLOOD SPECIMENOrdering Facility: [facility] Address: [address] [place] [address] Performed By: #### 5 7021-8 ####[facility] [id number] [address] [place] Erythrocyte distribution width (RBC) [Ratio] 13.5 % Normal 11.5-15.0 [facility] Comment on above: Order Comment: Speci men Type: BLOOD SPECIMENOrdering Facility: [facility] Address: [address] [place] [address] Performed By: #### 5 7021-8 ####[facility] [id number] [address] [place] Hematocrit (Bld) [Volume fraction] 37.1 % Normal 36.0-46.0 [facility] Comment on above: Order Comment: Speci men Type: BLOOD SPECIMENOrdering Facility: [facility] Address: [address] [place] [address] Performed By: #### 5 7021-8 ####[facility] LABORATORYIA [id number] [place] [address] [place] Hemoglobin (Bld) [Mass/Vol] 11.9 g/dL Normal 11.5-15.5 [facility] Comment on above: Order Comment: Speci men Type: BLOOD SPECIMENOrdering Facility: [facility] Address: [address] [place] [address] Performed By: #### 5 7021-8 ####[facility] LABORATORYIA [id number] [place] [id number] [place] Immature granulocytes (Bld) [#/Vol] 10*3/uL Normal <0.10 [facility] Comment on above: Order Comment: Speci men Type: BLOOD SPECIMENOrdering Facility: [facility] Address: [address] [place] [address] Performed By: #### 5 7021-8 ####[facility] [id number] [place] [address] [place] Immature granulocytes/100 WBC (Bld) 0.2 % Normal [facility] Comment on above: Order Comment: Speci men Type: BLOOD SPECIMENOrdering Facility: [facility] Address: [address] [place] [address] Performed By: #### 5 7021-8 ####[facility] [id number] [place] [address] [place] Lymphocytes (Bld) [#/Vol] 0.61 10*3/uL Low 1.00-4.00 [facility] Comment on above: Order Comment: Speci men Type: BLOOD SPECIMENOrdering Facility: [facility] Address: [address] [place] [address] Performed By: #### 5 7021-8 ####[facility] [id number] [place] [address] [place] Lymphocytes/100 WBC (Bld) 11.5 % Normal [facility] Comment on above: Order Comment: Speci men Type: BLOOD SPECIMENOrdering Facility: [facility] Address: [address] [place] [address] Performed By: #### 5 7021-8 ####[facility] LABORATORYIA [id number] [place] [address] [place] MCH (RBC) [Entitic mass] 27.4 pg Normal 26.0-34.0 [facility] Comment on above: Order Comment: Speci men Type: BLOOD SPECIMENOrdering Facility: [facility] Address: [address] [place] [address] Performed By: #### 5 7021-8 ####[facility] LABORATORYIA [id number] [place] [id number] [place] MCHC (RBC) [Mass/Vol] 32.1 g/dL Normal 30.5-36.0 [facility] Comment on above: Order Comment: Speci men Type: BLOOD SPECIMENOrdering Facility: [facility] Address: [address] [place] [address] Performed By: #### 5 7021-8 ####[facility] LABORATORYCLIA [id number] [facility] [place] [address] [place] MCV (RBC) [Entitic vol] 85.5 fL Normal 80.0-100.0 [facility] Comment on above: Order Comment: Speci men Type: BLOOD SPECIMENOrdering Facility: [facility] Address: [address] [place] [address] Performed By: #### 5 7021-8 ####[facility] LABORATORYCLIA [id number] [place] [address] [place] Monocytes (Bld) [#/Vol] 0.16 10*3/uL Normal <0.87 [facility] Comment on above: Order Comment: Speci men Type: BLOOD SPECIMENOrdering Facility: [facility] Address: [address] [place] [address] Performed By: #### 5 7021-8 ####[facility] LABORATORYCLIA [id number] [place] [address] [place] Monocytes/100 WBC (Bld) 3.0 % Normal [facility] Comment on above: Order Comment: Speci men Type: BLOOD SPECIMENOrdering Facility: [facility] Address: [address] [place] [address] Performed By: #### 5 7021-8 ####[facility] LABORATORYCLIA [id number] [facility] [address] [place] Neutrophils (Bld) [#/Vol] 4.48 10*3/uL Normal 1.45-7.50 [facility] Comment on above: Order Comment: Speci men Type: BLOOD SPECIMENOrdering Facility: [facility] Address: [address] [place] [address] Performed By: #### 5 7021-8 ####[facility] LABORATORYCLIA [id number] [place] [address] [place] Neutrophils/100 WBC (Bld) 84.5 % Normal [facility] Comment on above: Order Comment: Speci men Type: BLOOD SPECIMENOrdering Facility: [facility] Address: [address] [place] [address] Performed By: #### 5 7021-8 ####[facility] LABORATORYCLIA [id number] [place] [address] [place] Nucleated RBC (Bld) [#/Vol] 10*3/uL Normal <0.01 [facility] Comment on above: Order Comment: Speci men Type: BLOOD SPECIMENOrdering Facility: [facility] Address: [address] [place] [address] Performed By: #### 5 7021-8 ####[facility] [id number] [place] [address] [place] Nucleated RBC/100 WBC (Bld) [Ratio] 0.0 /100 WBC Normal [facility] Comment on above: Order Comment: Speci men Type: BLOOD SPECIMENOrdering Facility: [facility] Address: [address] [place] [address] Performed By: #### 5 7021-8 ####[facility] [id number] [place] [address] [place] Platelet mean volume (Bld) [Entitic vol] 10.7 fL Normal 9.0-12.7 [facility] Comment on above: Order Comment: Speci men Type: BLOOD SPECIMENOrdering Facility: [facility] Address: [address] [place] [address] Performed By: #### 5 7021-8 ####[facility] [id number] [place] [address] [place] Platelets (Bld) [#/Vol] 274 10*3/uL Normal 150-400 [facility] Comment on above: Order Comment: Speci men Type: BLOOD SPECIMENOrdering Facility: [facility] Address: [address] [place] [address] Performed By: #### 5 7021-8 ####[facility] [id number] [place] [address] [place] RBC (Bld) [#/Vol] 4.34 10*6/uL Normal 3.90-5.20 [facility] Comment on above: Order Comment: Speci men Type: BLOOD SPECIMENOrdering Facility: [facility] Address: [address] [place] [address] Performed By: #### 5 7021-8 ####[facility] [id number] [place] [address] [place] [facility] WBC (Bld) [#/Vol] 5.30 10*3/uL Normal 3.70-11.00 [facility] Comment on above: Order Comment: Speci men Type: BLOOD SPECIMENOrdering Facility: [facility] Address: [address] [place] [address] Performed By: #### 5 7021-8 ####[facility] [id number] [place] [address] [place] [address] ABD/PEL W IVCONon 024 CT ABD/PEL W IVCON Normal [facility] Comprehensive metabolic 2000 panelon 09-18-2023 Albumin [Mass/Vol] 4.4 g/dL Normal 3.9-4.9 [facility] Comment on above: Order Comment: Speci men Type: BLOOD SPECIMENOrdering Facility: [facility] Address: [address] [place], [place] [address] Performed By: #### 2 4323-8, HCGED, 78335-9, 3040-3 ####[facility] [id number] [place] [address] [place] ALP [Catalytic activity/Vol] 66 U/L Normal 34-123 [facility] Comment on above: Order Comment: Speci men Type: BLOOD SPECIMENOrdering Facility: [facility] Address: [address] [place] [address] Performed By: #### 2 4323-8, HCGED, , 0-3 ####[facility] LABORATORYCLIA [id number] [facility] [place] [address] [place] ALT [Catalytic activity/Vol] 38 U/L Normal 7-38 [facility] Comment on above: Order Comment: Speci men Type: BLOOD SPECIMENOrdering Facility: [facility] Address: [address] [place] [address] Performed By: #### 2 4323-8, HCGED, , 0-3 ####[facility] LABORATORYCLIA [id number] [facility] [place] [address] [place] Anion gap [Moles/Vol] 11 mmol/L Normal 8-15 [facility] Comment on above: Order Comment: Speci men Type: BLOOD SPECIMENOrdering Facility: [facility] Address: [address] [place] [address] Performed By: #### 2 4323-8, HCGED, , 0-3 ####[facility] LABORATORYCLIA [id number] [facility] [place] [address] [place] AST [Catalytic activity/Vol] 48 U/L High 13-35 [facility] Comment on above: Order Comment: Speci men Type: BLOOD SPECIMENOrdering Facility: [facility] Address: [address] [place] [address] Performed By: #### 2 4323-8, HCGED, , 0-3 ####[facility] LABORATORYCLIA [id number] [facility] [place] [address] [place] Bilirubin [Mass/Vol] 0.3 mg/dL Normal 0.2-1.3 [facility] Comment on above: Order Comment: Speci men Type: BLOOD SPECIMENOrdering Facility: [facility] Address: [address] [place] [address] Performed By: #### 2 4323-8, HCGED, , 0-3 ####[facility] LABORATORYCLIA [id number] [facility] [place] [address] [place] Calcium [Mass/Vol] 8.8 mg/dL Normal 8.5-10.2 [facility] Comment on above: Order Comment: Speci men Type: BLOOD SPECIMENOrdering Facility: [facility] Address: [address] [place] [address] Performed By: #### 2 4323-8, HCGED, , 0-3 ####[facility] [id number] [place] [address] [place] Chloride [Moles/Vol] 106 mmol/L Normal 98-107 [facility] Comment on above: Order Comment: Speci men Type: BLOOD SPECIMENOrdering Facility: [facility] Address: [address] [place] [address] Performed By: #### 2 4323-8, HCGED, , 3039-3 ####[facility] [id number] [place] [address] [place] CO2 [Moles/Vol] 20 mmol/L Low 22-30 [facility] Comment on above: Order Comment: Speci men Type: BLOOD SPECIMENOrdering Facility: [facility] Address: [address] [place] [address] Performed By: #### 2 4323-8, HCGED, , 3039-3 ####[facility] [id number] [place] [address] [place] Creatinine [Mass/Vol] 0.70 mg/dL Normal 0.58-0.96 [facility] Comment on above: Order Comment: Speci men Type: BLOOD SPECIMENOrdering Facility: [facility] Address: [address] [place] [address] Performed By: #### 2 4323-8, HCGED, , 0-3 ####[facility] LABORATORYIA [id number] [place] [address] [place] Creatinine and Glomerular filtration rate.predicted panel (S/P/Bld) 117 mL/min/1.73m??? Normal >=60 [facility] Comment on above: Order Comment: Geraldo marrero Type: BLOOD SPECIMENOrdering Facility: [facility] Address: [address] [place] [address] Result Comment: Jessica mated Glomerular Filtration Rate [...] actual GFR. Performed By: #### 2 4323-8, HCGED, , 3039-04 ####[facility] LABORATORYCLIA [id number] [facility] [place] [address] [place] Glucose [Mass/Vol] 118 mg/dL High 74-99 [facility] Comment on above: Order Comment: Geraldo marrero Type: BLOOD SPECIMENOrdering Facility: [facility] Address: [address] [place] [address] Result Comment: The [place] [employer] (ADA) provides guidance for cutoff [...] Standards of Medical Care in Diabetes 2016, [place] [employer]. Diabetes Care. 2016.39(Suppl 1). Performed By: #### 2 4323-8, HCGED, , 3 ####[facility] LABORATORYCLIA [id number] [facility] [place] [address] [place] Potassium [Moles/Vol] 4.0 mmol/L Normal 3.7-5.1 [facility] Comment on above: Order Comment: Speci men Type: BLOOD SPECIMENOrdering Facility: [facility] Address: [address] [place] [address] Performed By: #### 2 4323-8, HCGED, , 3039-3 ####[facility] LABORATORYCLIA [id number] [place] [address] [place] Protein [Mass/Vol] 7.1 g/dL Normal 6.3-8.0 [facility] Comment on above: Order Comment: Speci men Type: BLOOD SPECIMENOrdering Facility: [facility] Address: [address] [place], [place] [address] Performed By: #### 2 4323-8, HCGED, , 3039-3 ####[facility] [id number] [place] [address] [place] Sodium [Moles/Vol] 137 mmol/L Normal 136-144 [facility] Comment on above: Order Comment: Speci men Type: BLOOD SPECIMENOrdering Facility: [facility] Address: [address] [place] [address] Performed By: #### 2 4323-8, HCGED, , 3039-3 ####[facility] [id number] [place] [address] [place] Urea nitrogen [Mass/Vol] 9 mg/dL Normal 7-21 [facility] Comment on above: Order Comment: Speci men Type: BLOOD SPECIMENOrdering Facility: [facility] Address: [address] [place], [place] [id number] Performed By: #### 2 4323-8, HCGED, , 3039-3 ####[facility] [id number] [place] [address] [place] ED NOTEon 09-18-2023 ED NOTE Normal [facility] ED PROV NOTEon 09-18-2023 ED PROV [facility] Lipase SerPl-cCncon 09-18-19 24 Lipase [Catalytic activity/Vol] 37 U/L Normal 16-61 [facility] Comment on above: Order Comment: Speci men Type: BLOOD SPECIMENOrdering Facility: [facility] Address: [address] [place] [address] Performed By: #### 2 4323-8, HCGED, 52001-1, 3040-3 ####[facility] [id number] [place] [address] [place] Magnesium SerPl-mCncon 09-17 Magnesium [Mass/Vol] 2.1 mg/dL Normal 1.7-2.3 [facility] Comment on above: Order Comment: Speci men Type: BLOOD SPECIMENOrdering Facility: [facility] Address: [address] [place] [address] Performed By: #### 2 4323-8, HCGED, 37248-7, 0-3 ####[facility] [id number] [place] [address] [place] Urinalysis complete panel (U )on 09-18-2023 Bilirubin Ql (U) Negative Normal Negative [facility] Comment on above: Order Comment: Speci men Type: URINE SPECIMENOrdering Facility: [facility] Address: [address] [place] [address] Performed By: #### 2 4356-8 ####[facility] [id number] [place] [address] [place] Clarity (Unsp spec) Clear Normal Clear [facility] Comment on above: Order Comment: Speci men Type: URINE SPECIMENOrdering Facility: [facility] Address: [address] [place] [address] Performed By: #### 2 4356-8 ####[facility] [id number] [place] [address] [place] [facility] Color (U) Light Yellow Normal yellow [facility] Comment on above: Order Comment: Speci men Type: URINE SPECIMENOrdering Facility: [facility] Address: [address] [place] [address] Performed By: #### 2 4356-8 ####[facility] [id number] [place] [address] [place] Glucose Test strip (U) [Mass/Vol] Negative Normal Trace, Negative [facility] Comment on above: Order Comment: Speci men Type: URINE SPECIMENOrdering Facility: [facility] Address: [address] [place] [address] Performed By: #### 2 4356-8 ####[facility] [id number] [place] [address] [place] Hemoglobin Ql (U) Negative Normal Negative, Trace [facility] Comment on above: Order Comment: Speci men Type: URINE SPECIMENOrdering Facility: [facility] Address: [address] [place] [address] Performed By: #### 2 4356-8 ####[facility] [id number] [place] [id number] [place] Ketones Ql (U) Negative Normal Negative, Trace [facility] Comment on above: Order Comment: Speci men Type: URINE SPECIMENOrdering Facility: [facility] Address: [address] [place] [address] Performed By: #### 2 4356-8 ####[facility] [id number] [place] [address] [place] Leukocyte esterase Test strip Ql (U) Negative Normal Negative, 25 Patito/uL [facility] Comment on above: Order Comment: Speci men Type: URINE SPECIMENOrdering Facility: [facility] Address: [address] [place] [address] Performed By: #### 2 4356-8 ####[facility] [id number] [place] [address] [place] Nitrite Ql (U) Negative Normal Negative [facility] Comment on above: Order Comment: Speci men Type: URINE SPECIMENOrdering Facility: [facility] Address: [address] [place] [address] Performed By: #### 2 4356-8 ####[facility] [id number] [place] [address] [place] pH (U) 7.5 [pH] Normal 5.0-8.0 [facility] Comment on above: Order Comment: Speci men Type: URINE SPECIMENOrdering Facility: [facility] Address: [address] [place] [address] Performed By: #### 2 4356-8 ####[facility] [id number] [place] [address] [place] Protein (U) [Mass/Vol] Negative Normal Trace, Negative [facility] Comment on above: Order Comment: Speci men Type: URINE SPECIMENOrdering Facility: [facility] Address: [address] [place] [address] Performed By: #### 2 4356-8 ####[facility] [id number] [place] [address] [place] RBC LM.HPF (Urine sed) [#/Area] 0-3 /HPF Normal 0-3 /HPF [facility] Comment on above: Order Comment: Speci men Type: URINE SPECIMENOrdering Facility: [facility] Address: [address] [place] [address] Performed By: #### 2 4356-8 ####[facility] [id number] [place] [address] [place] Specific gravity (U) [Rel density] 1.005 Normal 1.005-1.030 [facility] Comment on above: Order Comment: Speci men Type: URINE SPECIMENOrdering Facility: [facility] Address: [address] [place] [address] Performed By: #### 2 4356-8 ####[facility] [id number] [place] [address] [place] Urobilinogen Ql (U) Normal Normal Normal [facility] Comment on above: Order Comment: Speci men Type: URINE SPECIMENOrdering Facility: [facility] Address: [address] [place] [address] Performed By: #### 2 4356-8 ####[facility] [id number] [place] [address] [place] WBC LM.HPF (Urine sed) [#/Area] 0-5 /HPF Normal 0-5 /HPF [facility] Comment on above: Order Comment: Speci men Type: URINE SPECIMENOrdering Facility: [facility] Address: [address] [place] [address] Performed By: #### 2 4356-8 ####[facility] [id number] [place] [address] [place] CBC W Auto Differential pane l (Bld)on 09-17-2023 Basophils (Bld) [#/Vol] 0.03 10*3/uL Normal <0.11 [facility] Comment on above: Order Comment: Speci men Type: BLOOD SPECIMENOrdering Facility: [facility] Address: [address] [place] [address] Performed By: #### 5 7021-8 ####[facility] [id number] [place] [address] [place] Basophils/100 WBC (Bld) 0.5 % Normal [facility] Comment on above: Order Comment: Speci men Type: BLOOD SPECIMENOrdering Facility: [facility] Address: [address] [place] [address] Performed By: #### 5 7021-8 ####[facility] [id number] [place] [address] [place] Differential cell count method Nom (Bld) Auto Normal [facility] Comment on above: Order Comment: Speci men Type: BLOOD SPECIMENOrdering Facility: [facility] Address: [address] [place] [address] Performed By: #### 5 7021-8 ####[facility] LABORATORYIA [id number] [place] [address] [place] Eosinophils (Bld) [#/Vol] 10*3/uL Normal <0.46 [facility] Comment on above: Order Comment: Speci men Type: BLOOD SPECIMENOrdering Facility: [facility] Address: [address] [place] [address] Performed By: #### 5 7021-8 ####[facility] LABORATORYCLIA [id number] [address] [place] Eosinophils/100 WBC (Bld) 0.2 % Normal [facility] Comment on above: Order Comment: Speci men Type: BLOOD SPECIMENOrdering Facility: [facility] Address: [address] [place] [address] Performed By: #### 5 7021-8 ####[facility] LABORATORYCLIA [id number] [place] [address] [place] Erythrocyte distribution width (RBC) [Ratio] 13.3 % Normal 11.5-15.0 [facility] Comment on above: Order Comment: Speci men Type: BLOOD SPECIMENOrdering Facility: [facility] Address: [address] [place] [address] Performed By: #### 5 7021-8 ####[facility] LABORATORYIA [id number] [place] [address] [place] Hematocrit (Bld) [Volume fraction] 34.2 % Low 36.0-46.0 [facility] Comment on above: Order Comment: Speci men Type: BLOOD SPECIMENOrdering Facility: [facility] Address: [address] [place] [address] Performed By: #### 5 7021-8 ####[facility] LABORATORYCLIA [id number] [place] [address] [place] Hemoglobin (Bld) [Mass/Vol] 11.2 g/dL Low 11.5-15.5 [facility] Comment on above: Order Comment: Speci men Type: BLOOD SPECIMENOrdering Facility: [facility] Address: [address] [place] [address] Performed By: #### 5 7021-8 ####[facility] LABORATORYCLIA [id number] [place] [address] [place] Immature granulocytes (Bld) [#/Vol] 10*3/uL Normal <0.10 [facility] Comment on above: Order Comment: Speci men Type: BLOOD SPECIMENOrdering Facility: [facility] Address: [address] [place] [address] Performed By: #### 5 7021-8 ####[facility] LABORATORYCLIA [id number] [place] [address] [place] Immature granulocytes/100 WBC (Bld) 0.2 % Normal [facility] Comment on above: Order Comment: Speci men Type: BLOOD SPECIMENOrdering Facility: [facility] Address: [address] [place] [address] Performed By: #### 5 7021-8 ####[facility] [id number] [place] [address] [place] Lymphocytes (Bld) [#/Vol] 1.50 10*3/uL Normal 1.00-4.00 [facility] Comment on above: Order Comment: Speci men Type: BLOOD SPECIMENOrdering Facility: [facility] Address: [address] [place] [address] Performed By: #### 5 7021-8 ####[facility] [id number] [place] [address] [place] Lymphocytes/100 WBC (Bld) 25.5 % Normal [facility] Comment on above: Order Comment: Speci men Type: BLOOD SPECIMENOrdering Facility: [facility] Address: [address] [place] [address] Performed By: #### 5 7021-8 ####[facility] LABORATORYIA [id number] [place] [address] [place] MCH (RBC) [Entitic mass] 27.9 pg Normal 26.0-34.0 [facility] Comment on above: Order Comment: Speci men Type: BLOOD SPECIMENOrdering Facility: [facility] Address: [address] [place] [address] Performed By: #### 5 7021-8 ####[facility] LABORATORYIA [id number] [place] [address] [place] MCHC (RBC) [Mass/Vol] 32.7 g/dL Normal 30.5-36.0 [facility] Comment on above: Order Comment: Speci men Type: BLOOD SPECIMENOrdering Facility: [facility] Address: [address] [place] [address] Performed By: #### 5 7021-8 ####[facility] [id number] [place] [address] [place] MCV (RBC) [Entitic vol] 85.3 fL Normal 80.0-100.0 [facility] Comment on above: Order Comment: Speci men Type: BLOOD SPECIMENOrdering Facility: [facility] Address: [address] [place] [address] Performed By: #### 5 7021-8 ####[facility] [id number] [place] [address] [place] Monocytes (Bld) [#/Vol] 0.35 10*3/uL Normal <0.87 [facility] Comment on above: Order Comment: Speci men Type: BLOOD SPECIMENOrdering Facility: [facility] Address: [address] [place] [address] Performed By: #### 5 7021-8 ####[facility] [id number] [place] [address] [place] Monocytes/100 WBC (Bld) 5.9 % Normal [facility] Comment on above: Order Comment: Speci men Type: BLOOD SPECIMENOrdering Facility: [facility] Address: [address] [place] [address] Performed By: #### 5 7021-8 ####[facility] [id number] [place] [address] [place] Neutrophils (Bld) [#/Vol] 3.99 10*3/uL Normal 1.45-7.50 [facility] Comment on above: Order Comment: Speci men Type: BLOOD SPECIMENOrdering Facility: [facility] Address: [address] [place] [address] Performed By: #### 5 7021-8 ####[facility] [id number] [place] [address] [place] Neutrophils/100 WBC (Bld) 67.7 % Normal [facility] Comment on above: Order Comment: Speci men Type: BLOOD SPECIMENOrdering Facility: [facility] Address: [address] [place] [address] Performed By: #### 5 7021-8 ####[facility] [id number] [place] [address] [place] Nucleated RBC (Bld) [#/Vol] 10*3/uL Normal <0.01 [facility] Comment on above: Order Comment: Speci men Type: BLOOD SPECIMENOrdering Facility: [facility] Address: [address] [place] [address] Performed By: #### 5 7021-8 ####[facility] [id number] [place] [address] [place] Nucleated RBC/100 WBC (Bld) [Ratio] 0.0 /100 WBC Normal [facility] Comment on above: Order Comment: Speci men Type: BLOOD SPECIMENOrdering Facility: [facility] Address: [address] [place] [address] Performed By: #### 5 7021-8 ####[facility] [id number] [place] [address] [place] Platelet mean volume (Bld) [Entitic vol] 10.7 fL Normal 9.0-12.7 [facility] Comment on above: Order Comment: Speci men Type: BLOOD SPECIMENOrdering Facility: [facility] Address: [address] [place] [address] Performed By: #### 5 7021-8 ####[facility] [id number] [place] [address] [place] Platelets (Bld) [#/Vol] 267 10*3/uL Normal 150-400 [facility] Comment on above: Order Comment: Speci men Type: BLOOD SPECIMENOrdering Facility: [facility] Address: [address] [place], [place] [address] [address] Performed By: #### 5 7021-8 ####[facility] LABORATORYCLIA [id number] [facility] [address] [place] RBC (Bld) [#/Vol] 4.01 10*6/uL Normal 3.90-5.20 [facility] Comment on above: Order Comment: Speci men Type: BLOOD SPECIMENOrdering Facility: [facility] Address: [address] [place] [address] Performed By: #### 5 7021-8 ####[facility] LABORATORYCLIA [id number] [facility] [place] [address] [facility] [place] WBC (Bld) [#/Vol] 5.89 10*3/uL Normal 3.70-11.00 [facility] Comment on above: Order Comment: Speci men Type: BLOOD SPECIMENOrdering Facility: [facility] Address: [address] [place] [address] Performed By: #### 5 7021-8 ####[facility] LABORATORYCLIA [id number] [place] [address] [place] ABD/PEL W IVCONon 024 CT ABD/PEL W IVCON Normal [facility] Comprehensive metabolic 2000 panelon 09-17-2023 Albumin [Mass/Vol] 4.1 g/dL Normal 3.9-4.9 [facility] Comment on above: Order Comment: Speci men Type: BLOOD SPECIMENOrdering Facility: [facility] Address: [address] [place] [address] Performed By: #### 2 4323-8, 62468-5 ####[facility] LABORATORYCLIA [id number] [facility] [place] [address] [place] ALP [Catalytic activity/Vol] 58 U/L Normal 34-123 [facility] Comment on above: Order Comment: Speci men Type: BLOOD SPECIMENOrdering Facility: [facility] Address: [address] [place] [address] Performed By: #### 2 4322-8, ####[facility] LABORATORYCLIA [id number] [place] [address] [place] ALT [Catalytic activity/Vol] 36 U/L Normal 7-38 [facility] Comment on above: Order Comment: Speci men Type: BLOOD SPECIMENOrdering Facility: [facility] Address: [address] [place] [address] Performed By: #### 2 8, ####[facility] LABORATORYCLIA [id number] [place] [address] [place] Anion gap [Moles/Vol] 12 mmol/L Normal 8-15 [facility] Comment on above: Order Comment: Speci men Type: BLOOD SPECIMENOrdering Facility: [facility] Address: [address] [place] [address] Performed By: #### 2 4322-09, ####[facility] LABORATORYCLIA [id number] [place] [address] [place] AST [Catalytic activity/Vol] 51 U/L High 13-35 [facility] Comment on above: Order Comment: Speci men Type: BLOOD SPECIMENOrdering Facility: [facility] Address: [address] [place] [id number] Performed By: #### 2 4322-09, ####[facility] LABORATORYCLIA [id number] [place] [address] [place] Bilirubin [Mass/Vol] 0.3 mg/dL Normal 0.2-1.3 [facility] Comment on above: Order Comment: Speci men Type: BLOOD SPECIMENOrdering Facility: [facility] Address: [address] [place] [address] Performed By: #### 2 432-8, ####[facility] LABORATORYCLIA [id number] [place] [address] [place] Calcium [Mass/Vol] 8.7 mg/dL Normal 8.5-10.2 [facility] Comment on above: Order Comment: Speci men Type: BLOOD SPECIMENOrdering Facility: [facility] Address: [address] [place] [address] Performed By: #### 2 4323-8, ####[facility] LABORATORYCLIA [id number] [place] [address] [place] Chloride [Moles/Vol] 105 mmol/L Normal 98-107 [facility] Comment on above: Order Comment: Speci men Type: BLOOD SPECIMENOrdering Facility: [facility] Address: [address] [place] [address] Performed By: #### 2 4323-8, ####[facility] LABORATORYCLIA [id number] [place] [address] [place] CO2 [Moles/Vol] 22 mmol/L Normal 22-30 [facility] Comment on above: Order Comment: Speci men Type: BLOOD SPECIMENOrdering Facility: [facility] Address: [address] [place] [address] Performed By: #### 2 4323-8, ####[facility] LABORATORYCLIA [id number] [place] [address] [place] Creatinine [Mass/Vol] 0.65 mg/dL Normal 0.58-0.96 [facility] Comment on above: Order Comment: Speci men Type: BLOOD SPECIMENOrdering Facility: [facility] Address: [address] [place] [address] Performed By: #### 2 4323-8, ####[facility] LABORATORYCLIA [id number] [place] [address] [place] Creatinine and Glomerular filtration rate.predicted panel (S/P/Bld) 119 mL/min/1.73m??? Normal >=60 [facility] Comment on above: Order Comment: Speci men Type: BLOOD SPECIMENOrdering Facility: [facility] Address: [address] [place] [address] Result Comment: Jessica mated Glomerular Filtration Rate [...] actual GFR. Performed By: #### 2 4323-8, ####[facility] LABORATORYCLIA [id number] [facility] [place] [address] [place] Glucose [Mass/Vol] 92 mg/dL Normal 74-99 [facility] Comment on above: Order Comment: Geraldo marrero Type: BLOOD SPECIMENOrdering Facility: [facility] Address: [address] [place] [address] Result Comment: The [place] [employer] (ADA) provides guidance for cutoff [...] Standards of Medical Care in Diabetes 2016, [place] [employer]. Diabetes Care. 2016.39(Suppl 1). Performed By: #### 2 4323-8, ####[facility] LABORATORYCLIA [id number] [facility] [place] [address] [place] Potassium [Moles/Vol] 3.6 mmol/L Low 3.7-5.1 [facility] Comment on above: Order Comment: Geraldo [facility] Type: BLOOD SPECIMENOrdering Facility: [facility] Address: [address] [place] [address] Performed By: #### 2 4323-8, ####[facility] LABORATORYCLIA [id number] [place] [address] [place] Protein [Mass/Vol] 6.9 g/dL Normal 6.3-8.0 [facility] Comment on above: Order Comment: Speci men Type: BLOOD SPECIMENOrdering Facility: [facility] Address: [address] [place] [address] Performed By: #### 2 432-8, ####[facility] LABORATORYCLIA [id number] [place] [address] [place] Sodium [Moles/Vol] 139 mmol/L Normal 136-144 [facility] Comment on above: Order Comment: Speci men Type: BLOOD SPECIMENOrdering Facility: [facility] Address: [address] [place] [address] Performed By: #### 2 4328, ####[facility] LABORATORYIA [id number] [place] [address] [place] Urea nitrogen [Mass/Vol] 10 mg/dL Normal 7-21 [facility] Comment on above: Order Comment: Speci men Type: BLOOD SPECIMENOrdering Facility: [facility] Address: [address] [place] [address] Performed By: #### 2 4323-8, ####[facility] LABORATORYIA [id number] [place] [address] [place] ED NOTEon 09-17-2023 ED NOTE [facility] ED NOTE [facility] ED NOTE HNO ID: [id number] Author: MISHEL HERNANDEZ RN Service: ? Author Type: Registered Nurse Type: ED Notes Filed: 09/17/2023 15:23 Note Text: Report received from DEE Lopez and assumed care of pt Normal [facility] ED NOTE HNO ID: [id number] Author: ANITA HECK RN Service: [facility] Author Type: Registered Nurse Type: ED Notes Filed: 09/17/2023 15:18 Note Text: Report given to DEE Jean Baptiste. Normal [facility] ED NOTE Normal [facility] ED PROV NOTEon 09-17-2023 ED PROV NOTE Normal [facility] ED Triage Noteon 09-17-2023 ED Triage Note Normal [facility]ole Magnesium SerPl-mCncon 09-16 Magnesium [Mass/Vol] 1.9 mg/dL Normal 1.7-2.3 [facility] Comment on above: Order Comment: Speci men Type: BLOOD SPECIMENOrdering Facility: [facility] Address: [address] [place] [address] Performed By: #### 2 4323-8, 14264-8 ####[facility] [id number] [place] [address] [place] Urinalysis complete panel (U )on 09-17-2023 Bilirubin Ql (U) Negative Normal Negative [facility] Comment on above: Order Comment: Speci men Type: URINE SPECIMENOrdering Facility: [facility] Address: [address] [place] [address] Performed By: #### 2 4356-8 ####[facility] [id number] [place] [address] [place] Clarity (Unsp spec) Clear Normal Clear [facility] Comment on above: Order Comment: Speci men Type: URINE SPECIMENOrdering Facility: [facility] Address: [address] [place] [address] Performed By: #### 2 4356-8 ####[facility] [id number] [place] [address] [place] Color (U) Colorless Normal yellow [facility] Comment on above: Order Comment: Speci men Type: URINE SPECIMENOrdering Facility: [facility] Address: [address] [place] [address] Performed By: #### 2 4356-8 ####[facility] LABORATORYIA [id number] [place] [address] [place] Epithelial cells LM.HPF (Urine sed) [#/Area] Few Normal [facility] Comment on above: Order Comment: Speci men Type: URINE SPECIMENOrdering Facility: [facility] Address: [address] [place] [address] Performed By: #### 2 4356-8 ####[facility] [id number] [place] [address] [place] Glucose Test strip (U) [Mass/Vol] Negative Normal Trace, Negative [facility] Comment on above: Order Comment: Speci men Type: URINE SPECIMENOrdering Facility: [facility] Address: [address] [place] [address] Performed By: #### 2 4356-8 ####[facility] [id number] [place] [address] [place] Hemoglobin Ql (U) Negative Normal Negative, Trace [facility] Comment on above: Order Comment: Speci men Type: URINE SPECIMENOrdering Facility: [facility] Address: [address] [place] [address] Performed By: #### 2 4356-8 ####[facility] [id number] [place] [address] [place] Ketones Ql (U) Negative Normal Negative, Trace [facility] Comment on above: Order Comment: Speci men Type: URINE SPECIMENOrdering Facility: [facility] Address: [address] [place] [address] Performed By: #### 2 4356-8 ####[facility] [id number] [place] [address] [place] Leukocyte esterase Test strip Ql (U) Negative Normal Negative, 25 Patito/uL [facility] Comment on above: Order Comment: Speci men Type: URINE SPECIMENOrdering Facility: [facility] Address: [address] [place] [address] Performed By: #### 2 4356-8 ####[facility] [id number] [place] [address] [place] Nitrite Ql (U) Negative Normal Negative [facility] Comment on above: Order Comment: Speci men Type: URINE SPECIMENOrdering Facility: [facility] Address: [address] [place] [address] Performed By: #### 2 4356-8 ####[facility] [id number] [place] [address] [place] pH (U) 7.5 [pH] Normal 5.0-8.0 [facility] Comment on above: Order Comment: Speci men Type: URINE SPECIMENOrdering Facility: [facility] Address: [address] [place] [address] Performed By: #### 2 4356-8 ####[facility] [id number] [place] [address] [place] Protein (U) [Mass/Vol] Negative Normal Trace, Negative [facility] Comment on above: Order Comment: Speci men Type: URINE SPECIMENOrdering Facility: [facility] Address: [address] [place] [address] Performed By: #### 2 4356-8 ####[facility] [id number] [place] [address] [place] RBC LM.HPF (Urine sed) [#/Area] 0-3 /HPF Normal 0-3 /HPF [facility] Comment on above: Order Comment: Speci men Type: URINE SPECIMENOrdering Facility: [facility] Address: [address] [place] [address] Performed By: #### 2 4356-8 ####[facility] [id number] [place] [address] [place] Specific gravity (U) [Rel density] 1.032 High 1.005-1.030 [facility] Comment on above: Order Comment: Speci men Type: URINE SPECIMENOrdering Facility: [facility] Address: [address] [place] [address] Performed By: #### 2 4356-8 ####[facility] [id number] [place] [address] [place] Urobilinogen Ql (U) Normal Normal Normal [facility] Comment on above: Order Comment: Speci men Type: URINE SPECIMENOrdering Facility: [facility] Address: [address] [place] [address] Performed By: #### 2 4356-8 ####[facility] LABORATORYCLIA [id number] [place] [address] [place] WBC LM.HPF (Urine sed) [#/Area] 0-5 /HPF Normal 0-5 /HPF [facility] Comment on above: Order Comment: Speci men Type: URINE SPECIMENOrdering Facility: [facility] Address: [address] [place] [address] Performed By: #### 2 4356-8 ####[facility] [id number] [place] BETA HCG, QUANTITATIVE FOR E Don 09-12-2023 HCG.beta subunit Qn m[IU]/mL Normal <5.0 [facility] Comment on above: Order Comment: Speci men Type: BLOOD SPECIMENOrdering Facility: [facility] Address: [address] [place] [address] Result Comment: Nega tive Performed By: #### 2 4323-8, 49591-7, HCGED, 3040-3 ####[facility] LABORATORYCLIA [id number] [place] [id number] [place] CBC W Auto Differential pane l (Bld)on 09-12-2023 Basophils (Bld) [#/Vol] 0.04 10*3/uL Normal <0.11 [facility] Comment on above: Order Comment: Speci men Type: BLOOD SPECIMENOrdering Facility: [facility] Address: [address] [place] [address] Performed By: #### 5 7021-8 ####[facility] LABORATORYIA [id number] [facility] [place] [address] [place] Basophils/100 WBC (Bld) 0.8 % Normal [facility] Comment on above: Order Comment: Speci men Type: BLOOD SPECIMENOrdering Facility: [facility] Address: [address] [place] [address] Performed By: #### 5 7021-8 ####[facility] LABORATORYCLIA [id number] [facility] [place] [address] [facility] [place] Differential cell count method Nom (Bld) Auto Normal [facility] Comment on above: Order Comment: Speci men Type: BLOOD SPECIMENOrdering Facility: [facility] Address: [address] [place] [address] Performed By: #### 5 7021-8 ####[facility] LABORATORYCLIA [id number] [place] [address] [place] Eosinophils (Bld) [#/Vol] 10*3/uL Normal <0.46 [facility] Comment on above: Order Comment: Speci men Type: BLOOD SPECIMENOrdering Facility: [facility] Address: [address] [place] [address] Performed By: #### 5 7021-8 ####[facility] LABORATORYIA [id number] [place] [address] [place] Eosinophils/100 WBC (Bld) 0.2 % Normal [facility] Comment on above: Order Comment: Speci men Type: BLOOD SPECIMENOrdering Facility: [facility] Address: [address] [place] [address] Performed By: #### 5 7021-8 ####[facility] LABORATORYIA [id number] [facility]USVD.[place] [id number] [place] Erythrocyte distribution width (RBC) [Ratio] 13.2 % Normal 11.5-15.0 [facility] Comment on above: Order Comment: Speci men Type: BLOOD SPECIMENOrdering Facility: [facility] Address: [address] [place] [address] Performed By: #### 5 7021-8 ####[facility] LABORATORYIA [id number] [facility] [place] [address] [place] Hematocrit (Bld) [Volume fraction] 31.9 % Low 36.0-46.0 [facility] Comment on above: Order Comment: Speci men Type: BLOOD SPECIMENOrdering Facility: [facility] Address: [address] [place] [address] Performed By: #### 5 7021-8 ####[facility] LABORATORYIA [id number] [place] [address] [place] Hemoglobin (Bld) [Mass/Vol] 10.4 g/dL Low 11.5-15.5 [facility] Comment on above: Order Comment: Speci men Type: BLOOD SPECIMENOrdering Facility: [facility] Address: [address] [place] [address] Performed By: #### 5 7021-8 ####[facility] [id number] [place] [address] [place] Immature granulocytes (Bld) [#/Vol] 10*3/uL Normal <0.10 [facility] Comment on above: Order Comment: Speci men Type: BLOOD SPECIMENOrdering Facility: [facility] Address: [address] [place] [address] Performed By: #### 5 7021-8 ####[facility] LABORATORYIA [id number] [place] [address] [place] Immature granulocytes/100 WBC (Bld) 0.4 % Normal [facility] Comment on above: Order Comment: Speci men Type: BLOOD SPECIMENOrdering Facility: [facility] Address: [address] [place] [address] Performed By: #### 5 7021-8 ####[facility] LABORATORYIA [id number] [facility] [place] [address] [place] Lymphocytes (Bld) [#/Vol] 0.97 10*3/uL Low 1.00-4.00 [facility] Comment on above: Order Comment: Speci men Type: BLOOD SPECIMENOrdering Facility: [facility] Address: [address] [place] [address] Performed By: #### 5 7021-8 ####[facility] LABORATORYIA [id number] [address] [place] Lymphocytes/100 WBC (Bld) 18.8 % Normal [facility] Comment on above: Order Comment: Speci men Type: BLOOD SPECIMENOrdering Facility: [facility] Address: [address] [place] [address] Performed By: #### 5 7021-8 ####[facility] LABORATORYIA [id number] [place] [address] [place] MCH (RBC) [Entitic mass] 27.8 pg Normal 26.0-34.0 [facility] Comment on above: Order Comment: Speci men Type: BLOOD SPECIMENOrdering Facility: [facility] Address: [address] [place] [address] Performed By: #### 5 7021-8 ####[facility] [id number] [place] [address] [place] MCHC (RBC) [Mass/Vol] 32.6 g/dL Normal 30.5-36.0 [facility] Comment on above: Order Comment: Speci men Type: BLOOD SPECIMENOrdering Facility: [facility] Address: [address] [place] [address] Performed By: #### 5 7021-8 ####[facility] [id number] [address] [place] MCV (RBC) [Entitic vol] 85.3 fL Normal 80.0-100.0 [facility] Comment on above: Order Comment: Speci men Type: BLOOD SPECIMENOrdering Facility: [facility] Address: [address] [place] [address] Performed By: #### 5 7021-8 ####[facility] LABORATORYIA [id number] [address] [place] Monocytes (Bld) [#/Vol] 0.17 10*3/uL Normal <0.87 [facility] Comment on above: Order Comment: Speci men Type: BLOOD SPECIMENOrdering Facility: [facility] Address: [address] [place] [address] Performed By: #### 5 7021-8 ####[facility] LABORATORYCLIA [id number] [place] [address] [place] Monocytes/100 WBC (Bld) 3.3 % Normal [facility] Comment on above: Order Comment: Speci men Type: BLOOD SPECIMENOrdering Facility: [facility] Address: [address] [place] [address] Performed By: #### 5 7021-8 ####[facility] LABORATORYCLIA [id number] [place] [address] [place] Neutrophils (Bld) [#/Vol] 3.94 10*3/uL Normal 1.45-7.50 [facility] Comment on above: Order Comment: Speci men Type: BLOOD SPECIMENOrdering Facility: [facility] Address: [address] [place] [address] Performed By: #### 5 7021-8 ####[facility] LABORATORYIA [id number] [place] [address] [place] Neutrophils/100 WBC (Bld) 76.5 % Normal [facility] Comment on above: Order Comment: Speci men Type: BLOOD SPECIMENOrdering Facility: [facility] Address: [address] [place] [address] Performed By: #### 5 7021-8 ####[facility] LABORATORYIA [id number] [place] [address] [place] Nucleated RBC (Bld) [#/Vol] 10*3/uL Normal <0.01 [facility] Comment on above: Order Comment: Speci men Type: BLOOD SPECIMENOrdering Facility: [facility] Address: [address] [place] [address] Performed By: #### 5 7021-8 ####[facility] LABORATORYIA [id number] [place] [address] [place] Nucleated RBC/100 WBC (Bld) [Ratio] 0.0 /100 WBC Normal [facility] Comment on above: Order Comment: Speci men Type: BLOOD SPECIMENOrdering Facility: [facility] Address: [address] [place] [address] Performed By: #### 5 7021-8 ####[facility] [id number] [facility] [place] [address] [place] Platelet mean volume (Bld) [Entitic vol] 10.0 fL Normal 9.0-12.7 [facility] Comment on above: Order Comment: Speci men Type: BLOOD SPECIMENOrdering Facility: [facility] Address: [address] [place] [address] Performed By: #### 5 7021-8 ####[facility] [id number] [place] [address] [place] Platelets (Bld) [#/Vol] 225 10*3/uL Normal 150-400 [facility] Comment on above: Order Comment: Speci men Type: BLOOD SPECIMENOrdering Facility: [facility] Address: [address] [place] [address] Performed By: #### 5 7021-8 ####[facility] [id number] [facility] [place] [address] [place] RBC (Bld) [#/Vol] 3.74 10*6/uL Low 3.90-5.20 [facility] Comment on above: Order Comment: Speci men Type: BLOOD SPECIMENOrdering Facility: [facility] Address: [address] [place] [address] Performed By: #### 5 7021-8 ####[facility] LABORATORYCLIA [id number] [facility] [place] [address] [place] WBC (Bld) [#/Vol] 5.15 10*3/uL Normal 3.70-11.00 [facility] Comment on above: Order Comment: Speci men Type: BLOOD SPECIMENOrdering Facility: [facility] Address: [address] [place] [address] Performed By: #### 5 7021-8 ####[facility] LABORATORYIA [id number] [facility] [place] [address] [place] Comprehensive metabolic 2000 panelon 09-12-2023 Albumin [Mass/Vol] 4.0 g/dL Normal 3.9-4.9 [facility] Comment on above: Order Comment: Speci men Type: BLOOD SPECIMENOrdering Facility: [facility] Address: [address] [place] [address] Performed By: #### 2 4323-8, 56219-3, HCGED, 3040-3 ####[facility] LABORATORYCLIA [id number] [place] [address] [place] ALP [Catalytic activity/Vol] 56 U/L Normal 34-123 [facility] Comment on above: Order Comment: Speci men Type: BLOOD SPECIMENOrdering Facility: [facility] Address: [address] [place] [address] Performed By: #### 2 4323-8, 78358-8, HCGED, 3040-3 ####[facility] [id number] [facility] [place] [address] [place] ALT [Catalytic activity/Vol] 38 U/L Normal 7-38 [facility] Comment on above: Order Comment: Speci men Type: BLOOD SPECIMENOrdering Facility: [facility] Address: [address] [place] [address] Performed By: #### 2 4323-8, 77290-3, HCGED, 3040-3 ####[facility] LABORATORYIA [id number] [facility] [place] [address] [place] Anion gap [Moles/Vol] 10 mmol/L Normal 8-15 [facility] Comment on above: Order Comment: Speci men Type: BLOOD SPECIMENOrdering Facility: [facility] Address: [address] [place] [address] Performed By: #### 2 4323-8, 91504-3, HCGED, 3040-3 ####[facility] LABORATORYIA [id number] [facility] [place] [address] [place] AST [Catalytic activity/Vol] 43 U/L High 13-35 [facility] Comment on above: Order Comment: Speci men Type: BLOOD SPECIMENOrdering Facility: [facility] Address: [address] [place] [address] Performed By: #### 2 4323-8, , HCGED, 3039-3 ####[facility] LABORATORYCLIA [id number] [place] [address] [place] Bilirubin [Mass/Vol] 0.3 mg/dL Normal 0.2-1.3 [facility] Comment on above: Order Comment: Speci men Type: BLOOD SPECIMENOrdering Facility: [facility] Address: [address] [place] [address] Performed By: #### 2 4323-8, , HCGED, 3039-3 ####[facility]ENTERCLIA [id number] [place] [address] [place] Calcium [Mass/Vol] 8.4 mg/dL Low 8.5-10.2 [facility] Comment on above: Order Comment: Speci men Type: BLOOD SPECIMENOrdering Facility: [facility] Address: [address] [place] [address] Performed By: #### 2 4323-8, , HCGED, 3039-3 ####[facility] CENTERCLIA [id number] [place] [address] [place] Chloride [Moles/Vol] 107 mmol/L Normal 98-107 [facility] Comment on above: Order Comment: Speci men Type: BLOOD SPECIMENOrdering Facility: [facility] Address: [address] [place] [address] Performed By: #### 2 4323-8, , HCGED, 0-3 ####[facility] LABORATORYCLIA [id number] [place] [address] [place] CO2 [Moles/Vol] 21 mmol/L Low 22-30 [facility] Comment on above: Order Comment: Speci men Type: BLOOD SPECIMENOrdering Facility: [facility] Address: [address] [place] [address] Performed By: #### 2 4323-8, 66032-6, [facility], 0-3 ####[facility] LABORATORYCLIA [id number] [facility] [place] [address] [place] Creatinine [Mass/Vol] 0.67 mg/dL Normal 0.58-0.96 [facility] Comment on above: Order Comment: Speci men Type: BLOOD SPECIMENOrdering Facility: [facility] Address: [address] [place] [address] Performed By: #### 2 4323-8, 06165-6, [facility], 0-3 ####[facility] LABORATORYIA [id number] [place] [address] [place] Creatinine and Glomerular filtration rate.predicted panel (S/P/Bld) 118 mL/min/1.73m??? Normal >=60 [facility] Comment on above: Order Comment: Speci men Type: BLOOD SPECIMENOrdering Facility: [facility] Address: [address] [place] [address] Result Comment: Jessica mated Glomerular Filtration Rate [...] actual GFR. Performed By: #### 2 4323-8, 25489-7, [facility], 0-3 ####[facility] LABORATORYIA [id number] [place] [address] [place] Glucose [Mass/Vol] 95 mg/dL Normal 74-99 [facility] Comment on above: Order Comment: Speci men Type: BLOOD SPECIMENOrdering Facility: [facility] Address: [address] [place] [address] Result Comment: The [place] [employer] (ADA) provides guidance for cutoff [...] Standards of Medical Care in Diabetes 2016, [place] [employer]. Diabetes Care. 2016.39(Suppl 1). Performed By: #### 2 4323-8, , HCGED, 3040-3 ####[facility]ENTERCLIA [id number] [place] [address] [place] Potassium [Moles/Vol] 3.9 mmol/L Normal 3.7-5.1 [facility] Comment on above: Order Comment: Speci men Type: BLOOD SPECIMENOrdering Facility: [facility] Address: [address] [place] [address] Performed By: #### 2 4328, , HCGED, 3040-3 ####[facility] [id number] [place] [address] [place] Protein [Mass/Vol] 6.4 g/dL Normal 6.3-8.0 [facility] Comment on above: Order Comment: Speci men Type: BLOOD SPECIMENOrdering Facility: [facility] Address: [address] [place] [address] Performed By: #### 2 432-8, , HCGED, 3040-3 ####[facility] [id number] [place] [address] [place] Sodium [Moles/Vol] 138 mmol/L Normal 136-144 [facility] Comment on above: Order Comment: Speci men Type: BLOOD SPECIMENOrdering Facility: [facility] Address: [address] [place] [address] Performed By: #### 2 4323-8, , HCGED, 3040-3 ####[facility] LABORATORYCLIA [id number] [facility] [place] [address] [place] Urea nitrogen [Mass/Vol] 11 mg/dL Normal 7-21 [facility] Comment on above: Order Comment: Speci men Type: BLOOD SPECIMENOrdering Facility: [facility] Address: [address] [place] [address] Performed By: #### 2 4323-8, 65468-1, [facility] [place], 3039-04 ####[facility] LABORATORYCLIA [id number] [facility] [place] [address] [place] ED NOTEon 09-12-2023 ED NOTE Normal [facility] ED NOTE Normal [facility] ED NOTE HNO ID: [id number] Author: HARMONY CHAVEZ, DEE Service: ? Author Type: Registered Nurse Type: ED Notes Filed: 09/12/2023 16:23 Note Text: Per LIP, ok to give popsicle. Pt provided with popsicle. Pt tolerated PO well. Normal [facility] ED NOTE HNO ID: [id number] Author: AVTAR LIN, DEE Service: ? Author Type: Registered Nurse Type: ED Notes Filed: 09/12/2023 10:14 Note Text: Patient c/o mid abd pain. Patient was here yesterday . Patient states she was vomiting all night. Normal [facility] ED PROV NOTEon 09-12-2023 ED PROV NOTE Normal [facility] l Lipase SerPl-cCncon 09-12-19 24 Lipase [Catalytic activity/Vol] 40 U/L Normal 16-61 [facility] Comment on above: Order Comment: Speci men Type: BLOOD SPECIMENOrdering Facility: [facility] Address: [address] [place] [address] Performed By: #### 2 4323-8, , [facility] [place] [facility] [place] [place], 3 ####[facility] LABORATORYCLIA [id number] [facility] [address] [place] Magnesium SerPl-mCncon 09-11 Magnesium [Mass/Vol] 1.9 mg/dL Normal 1.7-2.3 [facility] Comment on above: Order Comment: Speci men Type: BLOOD SPECIMENOrdering Facility: [facility] Address: [address] [place] [address] Performed By: #### 2 4323-8, 41928-6, HCGED, 3040-3 ####[facility] LABORATORYCLIA [id number] [facility] [address] [place] CBC W Auto Differential pane l (Bld)on 09-11-2023 Basophils (Bld) [#/Vol] 10*3/uL Normal <0.11 [facility] Comment on above: Order Comment: Speci men Type: BLOOD SPECIMENOrdering Facility: [facility] Address: [address] [place] [address] Performed By: #### 5 7021-8 ####[facility] LABORATORYCLIA [id number] [facility] [address] [place] Basophils/100 WBC (Bld) 0.4 % Normal [facility] Comment on above: Order Comment: Speci men Type: BLOOD SPECIMENOrdering Facility: [facility] Address: [address] [place] [address] Performed By: #### 5 7021-8 ####[facility] LABORATORYIA [id number] [place] [address] [place] Differential cell count method Nom (Bld) Auto Normal [facility] Comment on above: Order Comment: Speci men Type: BLOOD SPECIMENOrdering Facility: [facility] Address: [address] [place] [address] Performed By: #### 5 7021-8 ####[facility] LABORATORYCLIA [id number] [facility] [address] [place] Eosinophils (Bld) [#/Vol] 10*3/uL Normal <0.46 [facility] Comment on above: Order Comment: Speci men Type: BLOOD SPECIMENOrdering Facility: [facility] Address: [address] [place] [address] Performed By: #### 5 7021-8 ####[facility] LABORATORYCLIA [id number] [facility] [place] [address] [place] Eosinophils/100 WBC (Bld) 0.4 % Normal [facility] Comment on above: Order Comment: Speci men Type: BLOOD SPECIMENOrdering Facility: [facility] Address: [address] [place] [address] Performed By: #### 5 7021-8 ####[facility] LABORATORYIA [id number] [place] [address] [place] Erythrocyte distribution width (RBC) [Ratio] 13.0 % Normal 11.5-15.0 [facility] Comment on above: Order Comment: Speci men Type: BLOOD SPECIMENOrdering Facility: [facility] Address: [address] [place] [address] Performed By: #### 5 7021-8 ####[facility] [id number] [place] [address] [place] Hematocrit (Bld) [Volume fraction] 34.1 % Low 36.0-46.0 [facility] Comment on above: Order Comment: Speci men Type: BLOOD SPECIMENOrdering Facility: [facility] Address: [address] [place] [address] Performed By: #### 5 7021-8 ####[facility] [id number] [place] [address] [place] Hemoglobin (Bld) [Mass/Vol] 10.9 g/dL Low 11.5-15.5 [facility] Comment on above: Order Comment: Speci men Type: BLOOD SPECIMENOrdering Facility: [facility] Address: [address] [place] [address] Performed By: #### 5 7021-8 ####[facility] LABORATORYIA [id number] [place] [address] [place] Immature granulocytes (Bld) [#/Vol] 10*3/uL Normal <0.10 [facility] Comment on above: Order Comment: Speci men Type: BLOOD SPECIMENOrdering Facility: [facility] Address: [address] [place], [place] [address] Performed By: #### 5 7021-8 ####[facility] LABORATORYCLIA [id number] [place] [id number] [place] Immature granulocytes/100 WBC (Bld) 0.2 % Normal [facility] Comment on above: Order Comment: Speci men Type: BLOOD SPECIMENOrdering Facility: [facility] Address: [address] [place] [address] Performed By: #### 5 7021-8 ####[facility] LABORATORYCLIA [id number] [place] [address] [place] Lymphocytes (Bld) [#/Vol] 0.74 10*3/uL Low 1.00-4.00 [facility] Comment on above: Order Comment: Speci men Type: BLOOD SPECIMENOrdering Facility: [facility] Address: [address] [place] [address] Performed By: #### 5 7021-8 ####[facility]ITALIA [id number] [place] [address] [place] Lymphocytes/100 WBC (Bld) 14.6 % Normal [facility] Comment on above: Order Comment: Speci men Type: BLOOD SPECIMENOrdering Facility: [facility] Address: [address] [place] [address] Performed By: #### 5 7021-8 ####[facility] LABORATORYIA [id number] [place] [id number] [place] MCH (RBC) [Entitic mass] 27.7 pg Normal 26.0-34.0 [facility] Comment on above: Order Comment: Speci men Type: BLOOD SPECIMENOrdering Facility: [facility] Address: [address] [place] [address] Performed By: #### 5 7021-8 ####[place] [facility] [id number] [place] [address] [place] MCHC (RBC) [Mass/Vol] 32.0 g/dL Normal 30.5-36.0 [facility] Comment on above: Order Comment: Speci men Type: BLOOD SPECIMENOrdering Facility: [facility] Address: [address] [place] [address] Performed By: #### 5 7021-8 ####[facility] [id number] [place] [address] [place] MCV (RBC) [Entitic vol] 86.8 fL Normal 80.0-100.0 [facility] Comment on above: Order Comment: Speci men Type: BLOOD SPECIMENOrdering Facility: [facility] Address: [address] [place] [address] Performed By: #### 5 7021-8 ####[facility] [id number] [place] [address] [place] Monocytes (Bld) [#/Vol] 0.18 10*3/uL Normal <0.87 [facility] Comment on above: Order Comment: Speci men Type: BLOOD SPECIMENOrdering Facility: [facility] Address: [address] [place] [address] Performed By: #### 5 7021-8 ####[facility] [id number] [place] [address] [place] Monocytes/100 WBC (Bld) 3.6 % Normal [facility] Comment on above: Order Comment: Speci men Type: BLOOD SPECIMENOrdering Facility: [facility] Address: [address] [place] [address] Performed By: #### 5 7021-8 ####[facility] [id number] [place] [address] [place] Neutrophils (Bld) [#/Vol] 4.09 10*3/uL Normal 1.45-7.50 [facility] Comment on above: Order Comment: Speci men Type: BLOOD SPECIMENOrdering Facility: [facility] Address: [address] [place] [address] Performed By: #### 5 7021-8 ####[facility]ORY[facility] [id number] [place] [address] [place] Neutrophils/100 WBC (Bld) 80.8 % Normal [facility] Comment on above: Order Comment: Speci men Type: BLOOD SPECIMENOrdering Facility: [facility] Address: [address] [place] [address] Performed By: #### 5 7021-8 ####[facility] LABORATORYCLIA [id number] [place] [address] [place] Nucleated RBC (Bld) [#/Vol] 0.02 10*3/uL High <0.01 [facility] Comment on above: Order Comment: Speci men Type: BLOOD SPECIMENOrdering Facility: [facility] Address: [address] [place] [address] Performed By: #### 5 7021-8 ####[facility] LABORATORYCLIA [id number] [place] [address] [place] Nucleated RBC/100 WBC (Bld) [Ratio] 0.4 /100 WBC Normal [facility] Comment on above: Order Comment: Speci men Type: BLOOD SPECIMENOrdering Facility: [facility] Address: [address] [place] [address] Performed By: #### 5 7021-8 ####[facility] [id number] [place] [address] [place] Platelet mean volume (Bld) [Entitic vol] 10.7 fL Normal 9.0-12.7 [facility] Comment on above: Order Comment: Speci men Type: BLOOD SPECIMENOrdering Facility: [facility] Address: [address] [place] [address] Performed By: #### 5 7021-8 ####[facility] LABORATORYCLIA [id number] [place] [id number] [place] Platelets (Bld) [#/Vol] 265 10*3/uL Normal 150-400 [facility] Comment on above: Order Comment: Speci men Type: BLOOD SPECIMENOrdering Facility: [facility] Address: [address] [place] [address] Performed By: #### 5 7021-8 ####[facility] LABORATORYCLIA [id number] [facility] [place] [address] [place] RBC (Bld) [#/Vol] 3.93 10*6/uL Normal 3.90-5.20 [facility] Comment on above: Order Comment: Speci men Type: BLOOD SPECIMENOrdering Facility: [facility] Address: [address] [place] [address] Performed By: #### 5 7021-8 ####[facility] LABORATORYCLIA [id number] [facility] [place] [address] [place] [facility] WBC (Bld) [#/Vol] 5.06 10*3/uL Normal 3.70-11.00 [facility] Comment on above: Order Comment: Speci men Type: BLOOD SPECIMENOrdering Facility: [facility] Address: [address] [place] [address] Performed By: #### 5 7021-8 ####[facility] [id number] [place] [address] [place] CT ABD/PEL W IVCONon 024 CT ABD/PEL W IVCON Normal [facility] Comprehensive metabolic 2000 panelon 09-11-2023 Albumin [Mass/Vol] 3.8 g/dL Low 3.9-4.9 [facility] Comment on above: Order Comment: Speci men Type: BLOOD SPECIMENOrdering Facility: [facility] Address: [address] [place], [place] [address] Performed By: #### 3 040-3, 04623-7, ####[facility] LABORATORYCLIA [id number] [facility] [place] [address] [place] ALP [Catalytic activity/Vol] 57 U/L Normal 34-123 [facility] Comment on above: Order Comment: Speci men Type: BLOOD SPECIMENOrdering Facility: [facility] Address: [address] [place] [address] Performed By: #### 3 040-3, 53776-4, ####[facility] LABORATORYCLIA [id number] [place] [address] [place] ALT [Catalytic activity/Vol] 38 U/L Normal 7-38 [facility] Comment on above: Order Comment: Speci men Type: BLOOD SPECIMENOrdering Facility: [facility] Address: [address] [place] [address] Performed By: #### 3 040-3, 91903-5, ####[facility] LABORATORYCLIA [id number] [place] [address] [place] Anion gap [Moles/Vol] 12 mmol/L Normal 8-15 [facility] Comment on above: Order Comment: Speci men Type: BLOOD SPECIMENOrdering Facility: [facility] Address: [address] [place] [address] Performed By: #### 3 040-3, , ####[facility] [id number] [place] [address] [place] AST [Catalytic activity/Vol] 50 U/L High 13-35 [facility] Comment on above: Order Comment: Speci men Type: BLOOD SPECIMENOrdering Facility: [facility] Address: [address] [place] [address] Performed By: #### 3 040-3, , ####[facility] LABORATORYIA [id number] [place] [address] [place] Bilirubin [Mass/Vol] 0.3 mg/dL Normal 0.2-1.3 [facility] Comment on above: Order Comment: Speci men Type: BLOOD SPECIMENOrdering Facility: [facility] Address: [address] [place] [address] Performed By: #### 3 040-3, , ####[facility] LABORATORYIA [id number] [place] [address] [place] Calcium [Mass/Vol] 8.4 mg/dL Low 8.5-10.2 [facility] Comment on above: Order Comment: Speci men Type: BLOOD SPECIMENOrdering Facility: [facility] Address: [address] [place] [address] Performed By: #### 3 040-3, , ####[facility] LABORATORYCLIA [id number] [place] [address] [place] Chloride [Moles/Vol] 104 mmol/L Normal 98-107 [facility] Comment on above: Order Comment: Speci men Type: BLOOD SPECIMENOrdering Facility: [facility] Address: [address] [place] [address] Performed By: #### 3 040-3, , ####[facility] [id number] [place] [address] [place] CO2 [Moles/Vol] 20 mmol/L Low 22-30 [facility] Comment on above: Order Comment: Speci men Type: BLOOD SPECIMENOrdering Facility: [facility] Address: [address] [place] [address] Performed By: #### 3 040-3, , ####[facility] [id number] [place] [address] [place] Creatinine [Mass/Vol] 0.76 mg/dL Normal 0.58-0.96 [facility] Comment on above: Order Comment: Speci men Type: BLOOD SPECIMENOrdering Facility: [facility] Address: [address] [place] [address] Performed By: #### 3 040-3, , ####[facility] [id number] [place] [address] [place] Creatinine and Glomerular filtration rate.predicted panel (S/P/Bld) 106 mL/min/1.73m??? Normal >=60 [facility] Comment on above: Order Comment: Speci men Type: BLOOD SPECIMENOrdering Facility: [facility] Address: [address] [place] [address] Result Comment: Jessica mated Glomerular Filtration Rate [...] actual GFR. Performed By: #### 3 040-3, 38529-7, ####[facility] LABORATORYCLIA [id number] [facility] [place] [address] [place] Glucose [Mass/Vol] 97 mg/dL Normal 74-99 [facility] Comment on above: Order Comment: Geraldo marrero Type: BLOOD SPECIMENOrdering Facility: [facility] Address: [address] [place] [address] Result Comment: The [place] [employer] (ADA) provides guidance for cutoff [...] Standards of Medical Care in Diabetes 2016, [place] [employer]. Diabetes Care. 2016.39(Suppl 1). Performed By: #### 3 040-3, 54489-8, ####[facility] LABORATORYCLIA [id number] [facility] [place] [address] [place] Potassium [Moles/Vol] 4.0 mmol/L Normal 3.7-5.1 [facility] Comment on above: Order Comment: Geraldo marrero Type: BLOOD SPECIMENOrdering Facility: [facility] Address: [address] [place] [place] [id number] Performed By: #### 3 040-3, 97664-0, ####[facility] LABORATORYIA [id number] [place] [address] [place] Protein [Mass/Vol] 6.3 g/dL Normal 6.3-8.0 [facility] Comment on above: Order Comment: Speci men Type: BLOOD SPECIMENOrdering Facility: [facility] Address: [address] [place] [address] Performed By: #### 3 040-3, 29027-4, 33822-1 ####[facility] [id number] [place] [address] [place] Sodium [Moles/Vol] 136 mmol/L Normal 136-144 [facility] Comment on above: Order Comment: Speci men Type: BLOOD SPECIMENOrdering Facility: [facility] Address: [address] [place] [address] Performed By: #### 3 040-3, 43712-2, 83636-0 ####[facility] [id number] [place] [address] [place] Urea nitrogen [Mass/Vol] 13 mg/dL Normal 7-21 [facility] Comment on above: Order Comment: Speci men Type: BLOOD SPECIMENOrdering Facility: [facility] Address: [address] [place] [address] Performed By: #### 3 040-3, 23873-8, 69636-1 ####[facility] [id number] [place] [address] [place] ED NOTEon 09-11-2023 ED NOTE Normal [facility] ED NOTE HNO ID: [id number] Author: AVTAR LIN, DEE Service: ? Author Type: Registered Nurse Type: ED Notes Filed: 09/11/2023 11:47 Note Text: Normal [facility] ED NOTE Normal [facility] ED PROV NOTEon 09-11-2023 ED PROV NOTE Normal [facility] l Lipase SerPl-cCncon 09-11-19 24 Lipase [Catalytic activity/Vol] 47 U/L Normal 16-61 [facility] Comment on above: Order Comment: Speci men Type: BLOOD SPECIMENOrdering Facility: [facility] Address: [address] [place] [address] Performed By: #### 3 040-3, 60085-4, 67348-3 ####[facility] [id number] [place] [address] [place] Magnesium SerPl-ncon 09-10 Magnesium [Mass/Vol] 1.8 mg/dL Normal 1.7-2.3 [facility] Comment on above: Order Comment: Speci men Type: BLOOD SPECIMENOrdering Facility: [facility] Address: [address] [place] [address] Performed By: #### 3 040-3, 96388-3, 94652-0 ####[facility] [id number] [facility] [place] [address] [place] CNNURSEon 08-30-2023 CNNURSE Normal [facility] CNNURSEon 08-26-2023 CNNURSE Normal [facility] EGD Study observation Narrat iveon 08-26-2023 A31 Gastrointestinal Endoscopy Patient Name: Abbey Garcia Procedure Date: 08/26/2023 3:47 PM Date of : 1990 Admit Type: Outpatient Age: 33 Room: [place] [address] Gender: Female Note Status: Finalized Attending MD: Britt Bradshaw MD, [id number] Procedure: Small bowel enteroscopy Indications: Heartburn Providers: Britt Bradshaw MD Referring Physician: Kasie Avalos MD (Referring [...] of the HUERTA capsule. Visualization showed the UHERTA capsule to be in an appropriate position. A few erosions with no stigmata of recent bleeding were found in the stomach. 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 A gastric pouch with a normal size was found. The gastrojejunal anastomosis was characterized by healthy appearing mucosa. The pkbqxtxk-hl-fgassmk limb was examined. The examined jejunum was [...] loss: none. Procedure Code(s): --- Professional --- 42773, Esophagogastroduode noscopy, flexible, transoral; diagnostic, including collection of specimen(s) by brushing or washing, when performed (separate procedure) CPT copyright 2020 [place] [employer]. All rights reserved. The codes documented in this report are preliminary and upon truck railroad and bus motor mechanic review may be revised to meet current compliance requirements. Attending Participation: I personally performed the entire procedure. I was present and participated during the entire procedure, including non-paula portions, and during the administration and monitoring of Moderate Sedation. Scope In: 4:00:27 PM Scope Out: 4:05:48 PM MD Britt Cano MD 08/26/2023 4:08:47 PM This report has been signed electronically by Britt Bradshaw MD Number of Addenda: 0 Note Initiated On: 08/26/2023 3:47 PM PROVATION [facility] Radiology Study observation (narrative) [facility] NURSING PROGon 08-26-2023 NURSING PROG Normal [facility] NURSING PROG Normal [facility] NURSING PROG Normal [facility] NURSING PROG Normal [facility] Small bowel enteroscopyon Small bowel enteroscopy Normal [facility] CNPNon 08-23-2023 CNPN Normal [facility] Activated partial thrombopla stin time (aPTT) in platelet poor plasma by coagulation aOrdered By: Claus Obrien on 08-21-2023 aPTT Coag (PPP) [Time] 28.4 s 25.1-36.5 [facility] Comment on above: A hematocrit value g reater than 55% may lead to inaccurate results in coagulation testing. Patients having hematocrit values >55% require a special collection tube for coagulation studies. Please contact the laboratory at [phone] for redraw instructions. Alanine aminotransferase [En zymatic activity/volume] in Serum or PlasmaOrdered By: Claus Obrien on 08-21-2023 ALT [Catalytic activity/Vol] 22 U/L Normal 7-52 [facility] Comment on above: Performed By: #### A CORY, [facility], CUU #### [facility] [address] Albumin [Mass/volume] in Ser um or Plasma by Bromocresol green (BCG) dye binding methoOrdered By: Claus Obrien on 08-21-2023 Albumin BCG dye [Mass/Vol] 3.9 g/dL 3.5-5.7 [facility] Alkaline phosphatase [Enzyma tic activity/volume] in Serum or PlasmaOrdered By: Claus Obrien on 08-21-2023 ALP [Catalytic activity/Vol] 51 U/L Normal 34-104 [facility] Comment on above: Performed By: #### A [facility]ORY[facility], CUU #### [facility] [address] Aspartate aminotransferase [ Enzymatic activity/volume] in Serum or PlasmaOrdered By: Claus Obrien on 08-21-2023 AST [Catalytic activity/Vol] 35 U/L Normal 13-39 [facility] Comment on above: Performed By: #### A DDONUAPLUS, UHCG, CUU #### [address] Automated basophil %Ordered By: Claus Obrien on 08-21-2023 Basophils/100 WBC (Bld) 1.0 % Normal . [facility] Comment on above: Performed By: #### H EPATIC, MG, LIPASE, CMP, CBC #### [address] Automated basophil countOrde red By: Claus Obrien on 08-21-2023 Basophils (Bld) [#/Vol] 0.0 10*3/uL Normal 0.0-0.2 [facility] Comment on above: Result Comment: PERF ORMED BY: [place] [address] PATHOLOGIST FABRIC FINISHER BAUTISTA BAKER M.D. Performed By: #### H EPATIC, MG, LIPASE, CMP, CBC #### [address] Automated blood monocyte cou ntOrdered By: Claus Obrien on 08-21-2023 Monocytes (Bld) [#/Vol] 0.3 10*3/uL Normal 0.0-0.8 [facility] Comment on above: Performed By: #### H EPATIC, MG, LIPASE, CMP, CBC #### [address] Automated eosinophil %Ordere d By: Claus Obrien on 08-21-2023 Eosinophils/100 WBC (Bld) 2.4 % Normal . [facility] Comment on above: Performed By: #### H EPATIC, MG, LIPASE, CMP, CBC #### [address] Automated eosinophil countOr dered By: Claus Obrien on 08-21-2023 Eosinophils (Bld) [#/Vol] 0.1 10*3/uL Normal 0.0-0.45 [facility] Comment on above: Performed By: #### H EPATIC, MG, LIPASE, CMP, CBC #### [address] Automated monocyte %Ordered By: Claus Obrien on 08-21-2023 Monocytes/100 WBC (Bld) 8.4 % Normal . [facility] Comment on above: Performed By: #### H EPATIC, MG, LIPASE, CMP, CBC #### [address] Automated neutrophil %Ordere d By: Claus Obrien on 08-21-2023 Neutrophils/100 WBC (Bld) 58.0 % Normal . [facility] Comment on above: Performed By: #### H EPATIC, MG, LIPASE, CMP, CBC #### [address] Basic Metabolic Panelon 07-0 Creatinine Clr Calc Pharmacy 115.16 Normal [facility] Comment on above: Performed By: #### A DDONUAJESSICA, [place], CUU #### [address] GFR/1.73 sq M.predicted MDRD (S/P/Bld) [Vol rate/Area] mL/min/{1.73_m2} Normal [facility] Comment on above: Performed By: #### A DDONUAJESSICA, UHCG, CUU #### [address] Bilirubin Test strip Ql (U)O rdered By: Claus Obrien on 08-21-2023 Bilirubin Ql (U) Negative Negative [facility] Bilirubin.direct [Mass/volum e] in Serum or PlasmaOrdered By: Claus Obrien on 08-21-2023 Bilirubin.direct [Mass/Vol] 0.10 mg/dL 0.03-0.18 [facility] Bilirubin.total [Mass/volume ] in Serum or PlasmaOrdered By: Claus Obrien on 08-21-2023 Bilirubin [Mass/Vol] 0.3 mg/dL Normal 0.3-1.0 [facility] Comment on above: Performed By: #### A JOSESITO RAY, FIDE #### [facility] [address] [place] [id number] [facility] CT abdomen pelvis w conon CT abdomen pelvis w con [facility] [place] [address] [place] [address] CT Scan Report Signed Patient: Abbey Garcia MR#: [id number] : 1990 Acct:[id number] Age/Sex: 33 / F ADM Date: 08/21/23 Loc: ER Room: Type: [facility] ER Attending Dr: Copies to: Claus [...] Maricruz Hutchinson M.D.08/21/2023 12:03 PM Dictation Location: [place] [address] Transcribed By: SULEMA 08/21/23 1203 Dictated By: Maricruz Hutchinson MD 08/21/23 1157 Signed By: 08/21/23 1203 Normal [facility] Calcium [Mass/volume] in Ser um or PlasmaOrdered By: Claus Obrien on 08-21-2023 Calcium [Mass/Vol] 8.4 mg/dL Low 8.6-10.3 [facility] Comment on above: Performed By: #### A CORY [facility]PITALJarrod, CUU #### [facility] [address] [place] [address] [place] Carbon dioxide, total [Moles /volume] in Serum or PlasmaOrdered By: Claus Obrien on 08-21-2023 CO2 [Moles/Vol] 21.7 mmol/L Normal 21.0-31.0 [facility] Comment on above: Performed By: #### A CORY ELIS, CUU #### [facility] [address] [place] [id number] [place] Chloride [Moles/volume] in S elder or PlasmaOrdered By: Claus Obrien on 08-21-2023 Chloride [Moles/Vol] 109 mmol/L High 98-107 [facility] Comment on above: Performed By: #### A CORY [facility]ITAL[facility], CUU #### [facility] [address] [place] [id number] [place] Choriogonadotropin.beta subu nit [Units/volume] in Serum or PlasmaOrdered By: Claus Obrien on 08-21-2023 HCG.beta subunit Qn Negative [facility] Color of Urine by AutoOrdere d By: Claus Obrien on 08-21-2023 Color (U) Colorless Normal Yellow [facility] Comment on above: Order Comment: Name Collection Type:: Clean-Voided Midstream Performed By: #### A CORY, JOSESITO, CUU #### [address] Complete Blood Count Auto Di ffon 08-21-2023 Mean Corpuscular HGB Conc 33.6 g/dL Normal 32.0-35.0 [facility] Comment on above: Performed By: #### H EPATIC, MG, LIPASE, CMP, CBC #### [address] Monocytes/100 WBC (Bld) 14.35 % Normal 0.00-20.00 [facility] Comment on above: Performed By: #### H EPATIC, MG, LIPASE, CMP, CBC #### [address] NRBC% 0.1 /100{WBC} Normal 0-0.5 [facility] Comment on above: Performed By: #### H EPATIC, MG, LIPASE, CMP, CBC #### [address] Creatinine [Mass/volume] in Serum or PlasmaOrdered By: Claus Obrien on 08-21-2023 Creatinine [Mass/Vol] 0.73 mg/dL Normal 0.60-1.20 [facility] Comment on above: Performed By: #### A CORY, JOSESITO, CUU #### [address] Erythrocyte distribution wid th [Ratio] by Automated countOrdered By: Claus Obrien on 08-21-2023 Erythrocyte distribution width (RBC) [Ratio] 13.7 % Normal 11.9-15.3 [facility] Comment on above: Performed By: #### H EPATIC, MG, LIPASE, CMP, CBC #### [address] Erythrocytes [#/volume] in B lood by Automated countOrdered By: Claus Obrien on 08-21-2023 RBC (Bld) [#/Vol] 3.89 10*6/uL Normal 3.60-5.00 [facility] Comment on above: Performed By: #### H EPATIC, MG, LIPASE, CMP, CBC #### [facility] [address] Glucose [Mass/volume] in Ser um or PlasmaOrdered By: Claus Obrien on 08-21-2023 Glucose [Mass/Vol] 83 mg/dL Normal 70-100 [facility] Comment on above: ADA recommended refe rence rangeRandom Glucose Reference Range is dependent on time and content of last meal. Glucose of more than 200 mg/dL in a nonstressed, ambulatory subject supports the diagnosis of Diabetes Mellitus. Result Comment: [place] om Glucose Reference Range is dependent on time and content of last meal. Glucose of more than 200 mg/dL in a nonstressed, ambulatory subject supports the diagnosis of Diabetes Mellitus. ADA recommended reference range Performed By: #### A DDONUAPLUS, UHCG, CUU #### [facility] [address] [place] [id number] [place] Glucose [Mass/volume] in Uri ne by Test stripOrdered By: Claus Obrien on 08-21-2023 Glucose Test strip (U) [Mass/Vol] Normal mg/dL Normal [facility] HCG ( test) IA.rapi d Ql (U)Ordered By: Claus Obrien on 08-21-2023 HCG ( test) Ql (U) Negative [facility] HCG,Qualitative Serumon HCG,Qualitative Serum Negative Normal [facility] Comment on above: Result Comment: PERF ORMED BY: [facility] [address] [place] [address] PATHOLOGIST FABRIC FINISHER BAUTISTA BAKER M.D. Performed By: #### A DDONUAPLUS, UHCG, CUU #### [facility] [address] [place] [id number] [place] HCG,Urineon 08-21-2023 Beta HCG ( test) Ql (U) Negative Normal [facility] Comment on above: Order Comment: Name Collection Type:: Clean-Voided Midstream Result Comment: PERF ORMED BY: [place] [address] PATHOLOGIST FABRIC FINISHER BAUTISTA BAKER M.D. Performed By: #### A JOSESITO RAY, CUU #### [address] Hematocrit [Volume Fraction] of Blood by Automated countOrdered By: Claus Obrien on 08-21-2023 Hematocrit (Bld) [Volume fraction] 33.5 % Low 34.0-46.4 [facility] [facility] Comment on above: Performed By: #### H EPATIC, MG, LIPASE, CMP, CBC #### [address] Hemoglobin Test strip Ql (U) Ordered By: Claus Obrien on 08-21-2023 Hemoglobin Ql (U) Negative Negative [facility] Hemoglobin [Mass/volume] in BloodOrdered By: Claus Obrien on 08-21-2023 Hemoglobin (Bld) [Mass/Vol] 11.3 g/dL Low 11.8-15.4 [facility] Comment on above: Performed By: #### H EPATIC, MG, LIPASE, CMP, CBC #### [address] Hepatic Panelon 08-21-2023 Albumin [Mass/Vol] 3.9 g/dL Normal 3.5-5.7 [facility] Comment on above: Performed By: #### A MALLORIEUAJESSICA, JOSESITO, CUU #### [address] Bilirubin,Indirect 0.2 mg/dL Normal [facility] Comment on above: Performed By: #### A CORY, ALIYAHG, CUU #### [address] Bilirubin.indirect [Mass/Vol] 0.10 mg/dL Normal 0.03-0.18 [facility] Comment on above: Performed By: #### A ALIYAH RAYG, CUU #### [facility] [address] [place] [address] [place] INR in Platelet poor plasma by Coagulation assayOrdered By: Claus Obrien on 08-21-2023 INR Coag (PPP) [Relative time] 1.1 {INR} Normal [facility] Comment on above: INR Therapeutic Rang e [...] By: #### A DDONUAPLUS, UHCG, CUU #### [facility] [address] [place] [address] [place] Ketones [Presence] in Urine by Test stripOrdered By: Claus Obrien on 08-21-2023 Ketones Ql (U) Negative Normal Negative [facility] Comment on above: Order Comment: Name Collection Type:: Clean-Voided Midstream Performed By: #### A DDONUAPLUS, UHCG, CUU #### [facility] [address] [place] [id number] [place] Leukocyte esterase [Presence ] in Urine by Test stripOrdered By: Claus Obrien on 08-21-2023 Leukocyte esterase Test strip Ql (U) Negative Normal Negative [facility] Comment on above: Order Comment: Name Collection Type:: Clean-Voided Midstream Performed By: #### A DDONUAPLUS, UHCG, CUU #### [facility] [address] [place] [address] [place] Leukocytes [#/volume] correc darvin for nucleated erythrocytes in Blood by Automated counOrdered By: Claus Obrien on 08-21-2023 WBC corrected for nucl RBC Auto (Bld) [#/Vol] 3.9 10*3/uL 3.8-11.6 [facility] Leukocytes [#/volume] in Blo od by Automated countOrdered By: Claus Obrien on 08-21-2023 WBC (Bld) [#/Vol] 3.9 10*3/uL Normal 3.8-11.6 [facility] Comment on above: Performed By: #### H EPATIC, MG, LIPASE, CMP, CBC #### [facility] [address] [place] [address] Lipase [Enzymatic activity/v olume] in Serum or PlasmaOrdered By: Claus Obrien on 08-21-2023 Lipase [Catalytic activity/Vol] 43.0 U/L Normal 11.0-82.0 [facility] Comment on above: Performed By: #### A DDONUAJESSICA, CG, CUU #### [facility] [address] [place] [address] Lymphocytes [#/volume] in Bl ood by Automated countOrdered By: Claus Obrien on 08-21-2023 Lymphocytes (Bld) [#/Vol] 1.2 10*3/uL Normal 1.00-4.8 [facility] Comment on above: Performed By: #### H EPATIC, MG, LIPASE, CMP, CBC #### [place] [address] [place] Lymphocytes/100 leukocytes i n Blood by Automated countOrdered By: Claus Obrien on 08-21-2023 Lymphocytes/100 WBC (Bld) 30.2 % Normal . [facility] Comment on above: Performed By: #### H EPATIC, MG, LIPASE, CMP, CBC #### [facility] [address] [place] [address] [place] MCH [Entitic mass] by Automa darvin countOrdered By: Claus Obrien on 08-21-2023 MCH (RBC) [Entitic mass] 29.0 pg Normal 24.7-34.3 [facility] Comment on above: Performed By: #### H EPATIC, MG, LIPASE, CMP, CBC #### [facility] [address] [place] [address] MCHC Auto (RBC) [Mass/Vol]Or dered By: Claus Obrien on 08-21-2023 MCHC (RBC) [Mass/Vol] 33.6 g/dL 32.0-35.0 [facility] MCV [Entitic volume] by Auto mated countOrdered By: Claus Obrien on 08-21-2023 MCV (RBC) [Entitic vol] 86.2 fL Normal 80-100 [facility] Comment on above: Performed By: #### H EPATIC, MG, LIPASE, CMP, CBC #### [facility] [address] [place] [address] Monocyte distribution width [Entitic volume] in Blood by AutomatedOrdered By: Claus Obrien on 08-21-2023 Monocyte distribution width Auto (Bld) [Entitic vol] 14.35 % 0.00-20.00 [facility] Neutrophils [#/volume] in Bl ood by Automated countOrdered By: Claus Obrien on 08-21-2023 Neutrophils (Bld) [#/Vol] 2.3 10*3/uL Normal 1.8-7.7 [facility] Comment on above: Performed By: #### H EPATIC, MG, LIPASE, CMP, CBC #### [facility] [address] [place] [address] Nitrite Test strip Ql (U)Ord ered By: Claus Obrien on 08-21-2023 Nitrite Ql (U) Negative Negative [facility] No Panel InformationOrdered By: Claus Obrien on 08-21-2023 Estimated GFR (CKD-EPI) > 60.0 mL/Min [facility] Creatinine Clearance (Chem 115.16 [facility] Nucleated erythrocytes [Pres ence] in Blood by Automated countOrdered By: Claus Obrien on 08-21-2023 Nucleated RBC Auto Ql (Bld) 0.1 /100{WBC} 0-0.5 [facility] Partial Thromboplastin Timeo n 08-21-2023 aPTT Coag (Bld) [Time] 28.4 s Normal 25.1-36.5 [facility] Comment on above: Result Comment: A he matocrit value greater than 55% may lead to inaccurate results in coagulation testing. Patients having hematocrit values >55% require a special collection tube for coagulation studies. Please contact the laboratory at [phone] for redraw instructions. PERFORMED BY: [place] [address] PATHOLOGIST [employer] BAUTISTA BAKER M.D. Performed By: #### A DDONUAJESSICA, BRITTANIECG, CUU #### [address] Platelet mean volume [Entiti c volume] in Blood by Automated countOrdered By: Claus Obrien on 08-21-2023 Platelet mean volume (Bld) [Entitic vol] 8.9 fL Normal 6.3-10.7 [facility] Comment on above: Performed By: #### H EPATIC, MG, LIPASE, CMP, CBC #### [address] Platelets [#/volume] in Bloo d by Automated countOrdered By: Claus Obrien on 08-21-2023 Platelets (Bld) [#/Vol] 208 10*3/uL Normal 150-450 [facility] Comment on above: Performed By: #### H EPATIC, MG, LIPASE, CMP, CBC #### [address] Potassium [Moles/volume] in Serum or PlasmaOrdered By: Claus Obrien on 08-21-2023 Potassium [Moles/Vol] 3.6 mmol/L Normal 3.5-5.1 [facility] Comment on above: Performed By: #### A DDONUAPLUS, UHCG, CUU #### [place] [address] [place] Protein Test strip (U) [Mass /Vol]Ordered By: Claus Obrien on 08-21-2023 Protein (U) [Mass/Vol] Negative Negative [facility] Protein [Mass/volume] in Ser um or PlasmaOrdered By: Claus Obrien on 07-06-2024 Protein [Mass/Vol] 6.4 g/dL Normal 6.4-8.9 [facility] Comment on above: Performed By: #### A JOSESITO RAY CUU #### [address] Prothrombin time (PT)Ordered By: Claus Obrien on 08-21-2023 PT Coag (PPP) [Time] 12.5 s Normal 9.0-12.9 [facility] Comment on above: A hematocrit value g reater than 55% may lead to inaccurate results in coagulation testing. Patients having hematocrit values >55% require a special collection tube for coagulation studies. Please contact the laboratory at [phone] for redraw instructions. Result Comment: A he matocrit value greater than 55% may lead to inaccurate results in coagulation testing. Patients having hematocrit values >55% require a special collection tube for coagulation studies. Please contact the laboratory at [phone] for redraw instructions. Performed By: #### A JOSESITO RAY, CUU #### [address] Serum globulin measurement b y calculation (mass/volume)Ordered By: Claus Obrien on 08-21-2023 Globulin (S) [Mass/Vol] 2.5 g/dL [facility] Comment on above: Performed By: #### A JOSESITO RAY, CUU #### [address] Serum or plasma albumin/glob ulin mass ratioOrdered By: Claus Obrien on 08-21-2023 Albumin/Globulin [Mass ratio] 1.6 {ratio} [facility] Comment on above: Performed By: #### A JOSESITO RAY, CUU #### [address] Serum or plasma anion gap de terminationOrdered By: Claus Obrien on 08-21-2023 Anion gap [Moles/Vol] 8.9 mmol/L Normal 6.0-15.0 [facility] Comment on above: Performed By: #### A ALIYAH RAYG, CUU #### [address] Serum or plasma non-glucuron idated bilirubin measurement (mass/volume)Ordered By: Claus Obrien on 08-21-2023 Bilirubin.indirect [Mass/Vol] 0.2 mg/dL [facility] Sodium [Moles/volume] in Ser um or PlasmaOrdered By: Claus Obrien on 08-21-2023 Sodium [Moles/Vol] 136 mmol/L Normal 136-145 [facility] Comment on above: Performed By: #### A DDONUAPLUS, UHCG, CUU #### [address] Specific gravity Test strip (U) [Rel density]Ordered By: Claus Obrien on 08-21-2023 Specific gravity (U) [Rel density] 1.004 1.001-1.030 [facility] Urea nitrogen [Mass/volume] in Serum or PlasmaOrdered By: Claus Obrien on 08-21-2023 Urea nitrogen [Mass/Vol] 8 mg/dL Normal 7-25 [facility] Comment on above: Performed By: #### A DDONUAPLUS, UHCG, CUU #### [address] Urinalysison 08-21-2023 Bilirubin,Urine Negative Normal Negative [facility] Comment on above: Order Comment: Name Collection Type:: Clean-Voided Midstream Performed By: #### A DDONUAPLUS, UHCG, CUU #### [address] Glucose Ql (U) Normal Normal Normal [facility] Comment on above: Order Comment: Name Collection Type:: Clean-Voided Midstream Performed By: #### A DDONUAPLUS, UHCG, CUU #### [address] Nitrite,Urine Negative Normal Negative [facility] Comment on above: Order Comment: Name Collection Type:: Clean-Voided Midstream Performed By: #### A DDONUAPLUS, UHCG, CUU #### [address] Occult Blood,Urine Negative Normal Negative [facility] Comment on above: Order Comment: Name Collection Type:: Clean-Voided Midstream Performed By: #### A DDONUAPLUS, UHCG, CUU #### [address] Protein,Urine Negative Normal Negative [facility] Comment on above: Order Comment: Name Collection Type:: Clean-Voided Midstream Performed By: #### A DDONUAPLUS, UHCG, CUU #### [address] Specificy [place],Urine 1.004 Normal 1.001-1.030 [facility] Comment on above: Order Comment: Name Collection Type:: Clean-Voided Midstream Performed By: #### A DDONUAPLUS, UHCG, CUU #### [address] Urobilinogen,Urine Normal Normal Normal [facility] Comment on above: Order Comment: Name Collection Type:: Clean-Voided Midstream Performed By: #### A DDONUAPLUS, UHCG, CUU #### [address] Urine appearanceOrdered By: Claus Obrien on 08-21-2023 Appearance (U) Clear Normal Clear [facility] Comment on above: Order Comment: Name Collection Type:: Clean-Voided Midstream Performed By: #### A DDONUAPLUS, UHCG, CUU #### [address] Urobilinogen Test strip (U) [Mass/Vol]Ordered By: Claus Obrien on 08-21-2023 Urobilinogen (U) [Mass/Vol] Normal mg/dL Normal [facility] pH of Urine by Test stripOrd ered By: Claus Obrien on 08-21-2023 pH (U) 6.5 [pH] Normal 5.0-9.0 [facility] Comment on above: Order Comment: Name Collection Type:: Clean-Voided Midstream Performed By: #### A JOSESITO RAY, CUU #### [facility] [address] [place] [address] [place] CNPNon 08-18-2023 CNPN Normal [facility] Alanine aminotransferase [En zymatic activity/volume] in Serum or PlasmaOrdered By: Shaan Sabillon on 08-14-2023 ALT [Catalytic activity/Vol] 21 U/L Normal 7-52 [facility] Comment on above: Performed By: #### A JOSESITO RAY, CUU #### [address] Albumin [Mass/volume] in Ser um or Plasma by Bromocresol green (BCG) dye binding methoOrdered By: Shaan Sabillon on 08-14-2023 Albumin BCG dye [Mass/Vol] 4.2 g/dL 3.5-5.7 [facility] Alkaline phosphatase [Enzyma tic activity/volume] in Serum or PlasmaOrdered By: Shaan Sabillon on 08-14-2023 ALP [Catalytic activity/Vol] 59 U/L Normal 34-104 [facility] Comment on above: Performed By: #### A JOSESITO RAY, CUU #### [address] Aspartate aminotransferase [ Enzymatic activity/volume] in Serum or PlasmaOrdered By: Shaan Sabillon on 08-14-2023 AST [Catalytic activity/Vol] 32 U/L Normal 13-39 [facility] Comment on above: Performed By: #### A JOSESITO RAY, CUU #### [address] Automated basophil %Ordered By: Shaan Sabillon on 08-14-2023 Basophils/100 WBC (Bld) 0.6 % Normal . [facility] Comment on above: Performed By: #### A JSOESITO RAY, CUU #### [facility] [address] [place] [address] Automated basophil countOrde red By: Shaan Sabillon on 08-14-2023 Basophils (Bld) [#/Vol] 0.0 10*3/uL Normal 0.0-0.2 [facility] Comment on above: Result Comment: PERF ORMED BY: [place] [address] PATHOLOGIST [employer]ISH[employer] BAUTISTA BAKER M.D. Performed By: #### A CORY [facility]ITALJar[facility], CUU #### [address] Automated blood monocyte cou ntOrdered By: Shaan Sabillon on 08-14-2023 Monocytes (Bld) [#/Vol] 0.5 10*3/uL Normal 0.0-0.8 [facility] Comment on above: Performed By: #### A CORY ELIS, CUU #### [address] Automated eosinophil %Ordere d By: Shaan Sabillon on 08-14-2023 Eosinophils/100 WBC (Bld) 0.7 % Normal . [facility] Comment on above: Performed By: #### A CORY ELIS, CUU #### [address] Automated eosinophil countOr dered By: Shaan Sabillon on 08-14-2023 Eosinophils (Bld) [#/Vol] 0.0 10*3/uL Normal 0.0-0.45 [facility] Comment on above: Performed By: #### A CORY ELIS, CUU #### [address] Automated monocyte %Ordered By: Shaan Sabillon on 08-14-2023 Monocytes/100 WBC (Bld) 7.0 % Normal . [facility] Comment on above: Performed By: #### A CORY, ElroyG, CUU #### [address] Automated neutrophil %Ordere d By: Shaan Sabillon on 08-14-2023 Neutrophils/100 WBC (Bld) 54.4 % Normal . [facility] Comment on above: Performed By: #### A JOSESITO RAY, CUU #### [facility] [address] [place] [address] Basic Metabolic Panelon 07-17 Creatinine Clr Calc Pharmacy 116.71 Normal [facility] Comment on above: Performed By: #### A JOSESITO RAY, CUU #### [address] GFR/1.73 sq M.predicted MDRD (S/P/Bld) [Vol rate/Area] mL/min/{1.73_m2} Normal [facility] Comment on above: Performed By: #### A JOSESITO RAY, CUU #### [address] Bilirubin Test strip Ql (U)O rdered By: Shaan Sabillon on 08-14-2023 Bilirubin Ql (U) Negative Negative [facility] Bilirubin.direct [Mass/volum e] in Serum or PlasmaOrdered By: Shaan Sabillon on 08-14-2023 Bilirubin.direct [Mass/Vol] 0.10 mg/dL 0.03-0.18 [facility] Bilirubin.total [Mass/volume ] in Serum or PlasmaOrdered By: Shaan Sabillon on 08-14-2023 Bilirubin [Mass/Vol] 0.3 mg/dL Normal 0.3-1.0 [facility] Comment on above: Performed By: #### A CORY, JOSESITO, CUU #### [address] abdomen pelvis w conon CT abdomen pelvis w [facility] [place] [address] [place] [address] CT Scan Report Signed Patient: Abbey Garcia MR#: [id number] : 1990 Acct:[id number] Age/Sex: 33 / F ADM Date: 08/14/23 Loc: ER Room: Type: [facility] ER Attending Dr: Copies to: Shaan [...] Medel Jr., D.O.08/14/2023 5:38 PM Dictation Location: [place] [address] Transcribed By: [facility] 08/14/23 1738 Dictated By: Cornel Medel Jr, DO 08/14/23 173 Signed By: 08/14/231737 Normal [facility] Calcium [Mass/volume] in Ser um or PlasmaOrdered By: Shaan Sabillon on 08-14-2023 Calcium [Mass/Vol] 8.7 mg/dL Normal 8.6-10.3 [facility] Comment on above: Performed By: #### A JOSESITO RAY CUU #### [address] Carbon dioxide, total [Moles /volume] in Serum or PlasmaOrdered By: Shaan Sabillon on 08-14-2023 CO2 [Moles/Vol] 21.8 mmol/L Normal 21.0-31.0 [facility] Comment on above: Performed By: #### A BRITTANIE RAYCG, CUU #### [facility] [address] [place] [address] [place] Chloride [Moles/volume] in S elder or PlasmaOrdered By: Shaan Sabillon on 08-14-2023 Chloride [Moles/Vol] 110 mmol/L High 98-107 [facility] Comment on above: Performed By: #### A DDONUAPLUS, UHCG, CUU #### [facility] [address] [place] [address] [place] Color of Urine by AutoOrdere d By: Shaan Sabillon on 08-14-2023 Color (U) Light-yellow Normal Yellow [facility] Comment on above: Order Comment: Name Collection Type:: Clean-Voided Midstream Performed By: #### A DDONUAPLUS, UHCG, CUU #### [facility] [address] [place] [address] [place] Complete Blood Count Auto Di ffon 08-14-2023 Mean Corpuscular HGB Conc 33.4 g/dL Normal 32.0-35.0 [facility] Comment on above: Performed By: #### A DDONUAPLUS, UHCG, CUU #### [facility] [address] [place] [address] [place] Monocytes/100 WBC (Bld) 16.29 % Normal 0.00-20.00 [facility] Comment on above: Performed By: #### A DDONUAPLUS, UHCG, CUU #### [facility] [address] [place] [address] [place] NRBC% 0.0 /100{WBC} Normal 0-0.5 [facility] Comment on above: Performed By: #### A DDONUAPLUS, UHCG, CUU #### [facility] [address] [place] [address] [place] Creatinine [Mass/volume] in Serum or PlasmaOrdered By: Shaan Sabillon on 08-14-2023 Creatinine [Mass/Vol] 0.72 mg/dL Normal 0.60-1.20 [facility] Comment on above: Performed By: #### A DDONALIYAH MAYSG, CUU #### [facility] [address] Erythrocyte distribution wid th [Ratio] by Automated countOrdered By: Shaan Sabillon on 08-14-2023 Erythrocyte distribution width (RBC) [Ratio] 14.0 % Normal 11.9-15.3 [facility] Comment on above: Performed By: #### A DDONUAPLUS, ALIYAHG, CUU #### [facility] [address] Erythrocytes [#/volume] in B lood by Automated countOrdered By: Shaan Sabillon on 08-14-2023 RBC (Bld) [#/Vol] 3.99 10*6/uL Normal 3.60-5.00 [facility] Comment on above: Performed By: #### A DDONUAJESSICA, BRITTANIECG, CUU #### [address] Glucose [Mass/volume] in Ser um or PlasmaOrdered By: Shaan Sabillon on 08-14-2023 Glucose [Mass/Vol] 82 mg/dL Normal 70-100 [facility] Comment on above: ADA recommended refe rence rangeRandom Glucose Reference Range is dependent on time and content of last meal. Glucose of more than 200 mg/dL in a nonstressed, ambulatory subject supports the diagnosis of Diabetes Mellitus. Result Comment: [place] om Glucose Reference Range is dependent on time and content of last meal. Glucose of more than 200 mg/dL in a nonstressed, ambulatory subject supports the diagnosis of Diabetes Mellitus. ADA recommended reference range Performed By: #### A DDONUAPLUS, BRITTANIECG, CUU #### [facility] [address] Glucose [Mass/volume] in Uri ne by Test stripOrdered By: Shaan Sabillon on 08-14-2023 Glucose Test strip (U) [Mass/Vol] Normal mg/dL Normal [facility] Hematocrit [Volume Fraction] of Blood by Automated countOrdered By: Shaan Sabillon on 08-14-2023 Hematocrit (Bld) [Volume fraction] 34.7 % Normal 34.0-46.4 [facility] Comment on above: Performed By: #### A DDFAIZAUAJESSICA, UHCG, CUU #### [address] Hemoglobin Test strip Ql (U) Ordered By: Shaan Sabillon on 08-14-2023 Hemoglobin Ql (U) Negative Negative [facility] Hemoglobin [Mass/volume] in BloodOrdered By: Shaan Sabillon on 08-14-2023 Hemoglobin (Bld) [Mass/Vol] 11.6 g/dL Low 11.8-15.4 [facility] Comment on above: Performed By: #### A DDONUAJESSICA, UHCG, CUU #### [address] Hepatic Panelon 08-14-2023 Albumin [Mass/Vol] 4.2 g/dL Normal 3.5-5.7 [facility] Comment on above: Performed By: #### A NISHONUAJESSICA, UHCG, CUU #### [address] Bilirubin,Indirect 0.2 mg/dL Normal [facility] Comment on above: Performed By: #### A DDONUAPLUS, UHCG, CUU #### [address] Bilirubin.indirect [Mass/Vol] 0.10 mg/dL Normal 0.03-0.18 [facility] Comment on above: Performed By: #### A DDONUAJESSICA, UHCG, CUU #### [address] Ketones [Presence] in Urine by Test stripOrdered By: Shaan Sabillon on 08-14-2023 Ketones Ql (U) Negative Normal Negative [facility] Comment on above: Order Comment: Name Collection Type:: Clean-Voided Midstream Performed By: #### A CORY, CG, CUU #### [facility] [address] [place] [address] [place] Lactate [Moles/volume] in Se rum or PlasmaOrdered By: Shaan Sabillon on 08-14-2023 Lactate [Moles/Vol] 0.6 mmol/L Normal 0.5-2.2 [facility] Comment on above: Result Comment: PERF ORMED BY: [place] [address] PATHOLOGIST [employer]ISHER BAUTISTA BAKER M.D. Performed By: #### A CORY, ELIS, CUU #### [address] Leukocyte esterase [Presence ] in Urine by Test stripOrdered By: Shaan Sabillon on 08-14-2023 Leukocyte esterase Test strip Ql (U) Negative Normal Negative [facility] Comment on above: Order Comment: Name Collection Type:: Clean-Voided Midstream Performed By: #### A CORY, ALIYAHG, CUU #### [address] Leukocytes [#/volume] correc darvin for nucleated erythrocytes in Blood by Automated counOrdered By: Shaan Sabillon on 08-14-2023 WBC corrected for nucl RBC Auto (Bld) [#/Vol] 6.6 10*3/uL 3.8-11.6 [facility] Leukocytes [#/volume] in Blo od by Automated countOrdered By: Shaan Sabillon on 08-14-2023 WBC (Bld) [#/Vol] 6.6 10*3/uL Normal 3.8-11.6 [facility] Comment on above: Performed By: #### A CORY, ALIYAHG, CUU #### [place] [address] [place] Lipase [Enzymatic activity/v olume] in Serum or PlasmaOrdered By: Shaan Sabillon on 08-14-2023 Lipase [Catalytic activity/Vol] 67.0 U/L Normal 11.0-82.0 [facility] Comment on above: Result Comment: PERF ORMED BY: [place] [address] PATHOLOGIST F[employer]IC FINISHER BAUTISTA BAKER M.D. Performed By: #### A JOSESITO RAY, CUU #### [address] Lymphocytes [#/volume] in Bl ood by Automated countOrdered By: Shaan Sabillon on 08-14-2023 Lymphocytes (Bld) [#/Vol] 2.5 10*3/uL Normal 1.00-4.8 [facility] Comment on above: Performed By: #### A JOSESITO RAY, CUU #### [address] Lymphocytes/100 leukocytes i n Blood by Automated countOrdered By: Shaan Sabillon on 08-14-2023 Lymphocytes/100 WBC (Bld) 37.3 % Normal . [facility] Comment on above: Performed By: #### A JOSESITO RAY, CUU #### [address] MCH [Entitic mass] by Automa darvin countOrdered By: Shaan Sabillon on 08-14-2023 MCH (RBC) [Entitic mass] 29.0 pg Normal 24.7-34.3 [facility] Comment on above: Performed By: #### A JOSESITO RAY, CUU #### [facility] [address] [place] [address] MCHC Auto (RBC) [Mass/Vol]Or dered By: Shaan Sabillon on 08-14-2023 MCHC (RBC) [Mass/Vol] 33.4 g/dL 32.0-35.0 [facility] MCV [Entitic volume] by Auto mated countOrdered By: Shaan Sabillon on 08-14-2023 MCV (RBC) [Entitic vol] 87.0 fL Normal 80-100 [facility] Comment on above: Performed By: #### A JOSESITO RAY, CUU #### [address] [place] [address] [place] Monocyte distribution width [Entitic volume] in Blood by AutomatedOrdered By: Shaan Sabillon on 08-14-2023 Monocyte distribution width Auto (Bld) [Entitic vol] 16.29 % 0.00-20.00 [facility] Neutrophils [#/volume] in Bl ood by Automated countOrdered By: Shaan Sabillon on 08-14-2023 Neutrophils (Bld) [#/Vol] 3.6 10*3/uL Normal 1.8-7.7 [facility] Comment on above: Performed By: #### A DDFAIZAUAJESSICA, JOSESITO, CUU #### [facility] [address] [place] [address] Nitrite Test strip Ql (U)Ord ered By: Shaan Sabillon on 08-14-2023 Nitrite Ql (U) Negative Negative [facility] No Panel InformationOrdered By: Shaan Sabillon on 08-14-2023 Estimated GFR (CKD-EPI) > 60.0 mL/Min [facility] Creatinine Clearance (Chem 116.71 [facility] Nucleated erythrocytes [Pres ence] in Blood by Automated countOrdered By: Shaan Sabillon on 08-14-2023 Nucleated RBC Auto Ql (Bld) 0.0 /100{WBC} 0-0.5 [facility] Platelet mean volume [Entiti c volume] in Blood by Automated countOrdered By: Shaan Sabillon on 08-14-2023 Platelet mean volume (Bld) [Entitic vol] 9.0 fL Normal 6.3-10.7 [facility] Comment on above: Performed By: #### A DDONUAJESSICA, BRITTANIECG, CUU #### [facility] [address] [place] [address] [place] Platelets [#/volume] in Bloo d by Automated countOrdered By: Shaan Sabillon on 08-14-2023 Platelets (Bld) [#/Vol] 281 10*3/uL Normal 150-450 [facility] Comment on above: Performed By: #### A DDONUAJESSICA, BRITTANIECG, CUU #### [facility] [address] [place] [address] [place] Potassium [Moles/volume] in Serum or PlasmaOrdered By: Shaan Sabillon on 08-14-2023 Potassium [Moles/Vol] 3.2 mmol/L Low 3.5-5.1 [facility] Comment on above: Performed By: #### A JOSESITO RAY, CUU #### [address] Protein Test strip (U) [Mass /Vol]Ordered By: Shaan Sabillon on 08-14-2023 Protein (U) [Mass/Vol] Negative Negative [facility] Protein [Mass/volume] in Ser um or PlasmaOrdered By: Shaan Sabillon on 08-14-2023 Protein [Mass/Vol] 6.9 g/dL Normal 6.4-8.9 [facility] Comment on above: Performed By: #### A JOSESITO RAY, CUU #### [address] Serum globulin measurement b y calculation (mass/volume)Ordered By: Shaan Sabillon on 08-14-2023 Globulin (S) [Mass/Vol] 2.7 g/dL Normal [facility] Comment on above: Performed By: #### A JOSESITO RAY, CUU #### [address] Serum or plasma albumin/glob ulin mass ratioOrdered By: Shaan Sabillon on 08-14-2023 Albumin/Globulin [Mass ratio] 1.6 {ratio} [facility] Comment on above: Performed By: #### A JOSESITO RAY, CUU #### [address] Serum or plasma anion gap de terminationOrdered By: Shaan Sabillon on 08-14-2023 Anion gap [Moles/Vol] 10.4 mmol/L Normal 6.0-15.0 [facility] Comment on above: Performed By: #### A JOSESITO RAY, CUU #### [address] Serum or plasma non-glucuron idated bilirubin measurement (mass/volume)Ordered By: Shaan Sabillon on 08-14-2023 Bilirubin.indirect [Mass/Vol] 0.2 mg/dL [facility] Sodium [Moles/volume] in Ser um or PlasmaOrdered By: Shaan Sabillon on 08-14-2023 Sodium [Moles/Vol] 139 mmol/L Normal 136-145 [facility] Comment on above: Performed By: #### A DDONUAPLUS, UHCG, CUU #### [address] Specific gravity Test strip (U) [Rel density]Ordered By: Shaan Sabillon on 08-14-2023 Specific gravity (U) [Rel density] 1.026 1.001-1.030 [facility] Urea nitrogen [Mass/volume] in Serum or PlasmaOrdered By: Shaan Sabillon on 08-14-2023 Urea nitrogen [Mass/Vol] 8 mg/dL Normal 7-25 [facility] Comment on above: Performed By: #### A DDONUAPLUS, UHCG, CUU #### [address] Urinalysison 08-14-2023 Bilirubin,Urine Negative Normal Negative [facility] Comment on above: Order Comment: Name Collection Type:: Clean-Voided Midstream Performed By: #### A DDONUAPLUS, UHCG, CUU #### [address] Glucose Ql (U) Normal Normal Normal [facility] Comment on above: Order Comment: Name Collection Type:: Clean-Voided Midstream Performed By: #### A DDONUAPLUS, UHCG, CUU #### [facility] [address] [place] [address] [place] Nitrite,Urine Negative Normal Negative [facility] Comment on above: Order Comment: Name Collection Type:: Clean-Voided Midstream Performed By: #### A DDONUAPLUS, UHCG, CUU #### [facility] [address] [place] [id number] [facility] Occult Blood,Urine Negative Normal Negative [facility] Comment on above: Order Comment: Name Collection Type:: Clean-Voided Midstream Result Comment: PERF ORMED BY: [place] [address] PATHOLOGIST [employer] BAUTISTA BAKER M.D. Performed By: #### A DDONUAPLUS, UHCG, CUU #### [address] Protein,Urine Negative Normal Negative [facility] Comment on above: Order Comment: Name Collection Type:: Clean-Voided Midstream Performed By: #### A DDONUAPLUS, UHCG, CUU #### [address] Specificy [place],Urine 1.026 Normal 1.001-1.030 [facility] Comment on above: Order Comment: Name Collection Type:: Clean-Voided Midstream Performed By: #### A DDONUAPLUS, UHCG, CUU #### [address] Urobilinogen,Urine Normal Normal Normal [facility] Comment on above: Order Comment: Name Collection Type:: Clean-Voided Midstream Performed By: #### A DDONUAPLUS, UHCG, CUU #### [address] Urine appearanceOrdered By: Shaan Sabillon on 08-14-2023 Appearance (U) Clear Normal Clear [facility] Comment on above: Order Comment: Name Collection Type:: Clean-Voided Midstream Performed By: #### A DDONUAPLUS, UHCG, CUU #### [address] Urobilinogen Test strip (U) [Mass/Vol]Ordered By: Shaan Sabillon on 08-14-2023 Urobilinogen (U) [Mass/Vol] Normal mg/dL Normal [facility] pH of Urine by Test stripOrd ered By: Shaan Sabillon on 08-14-2023 pH (U) 7.0 [pH] Normal 5.0-9.0 [facility] Comment on above: Order Comment: Name Collection Type:: Clean-Voided Midstream Performed By: #### A TAEJESSICA, [facility], [facility] #### [facility] [address] [place] [phone] [facility] CNPNon 08-12-2023 CNPN Normal [facility] CNOVon 08-09-2023 CNOV Normal [facility] CASE MGT INIT ASSESon 2023 CASE MGT INIT ASSES Normal [facility] CBC panel Auto (Bld)on 08-07 Erythrocyte distribution width (RBC) [Ratio] 13.2 % Normal 11.5-15.0 [facility] Comment on above: Order Comment: Speci men Type: BLOOD SPECIMENOrdering Facility: [facility] Address: [address] [place] [address] Performed By: #### 5 8410-2 ####[facility] LABCLIA [id number] [place] [address] [place] Hematocrit (Bld) [Volume fraction] 31.1 % Low 36.0-46.0 [facility] Comment on above: Order Comment: Speci men Type: BLOOD SPECIMENOrdering Facility: [facility] Address: [address] [place] [address] Performed By: #### 5 8410-2 ####[facility] LABCLIA [id number] [place] [address] [place] Hemoglobin (Bld) [Mass/Vol] 9.9 g/dL Low 11.5-15.5 [facility] Comment on above: Order Comment: Speci men Type: BLOOD SPECIMENOrdering Facility: [facility] Address: [address] [place] [address] Performed By: #### 5 8410-2 ####[facility] LABCLIA [id number] [place] [address] [place] MCH (RBC) [Entitic mass] 29.4 pg Normal 26.0-34.0 [facility] Comment on above: Order Comment: Speci men Type: BLOOD SPECIMENOrdering Facility: [facility] Address: [address] [place] [address] Performed By: #### 5 8410-2 ####[facility] LABIA [id number] [place] [address] [place] MCHC (RBC) [Mass/Vol] 31.8 g/dL Normal 30.5-36.0 [facility] Comment on above: Order Comment: Speci men Type: BLOOD SPECIMENOrdering Facility: [facility] Address: [address] [place] [address] Performed By: #### 5 8410-2 ####[facility] [id number] [place] [address] [place] MCV (RBC) [Entitic vol] 92.3 fL Normal 80.0-100.0 [facility] Comment on above: Order Comment: Speci men Type: BLOOD SPECIMENOrdering Facility: [facility] Address: [address] [place] [address] Performed By: #### 5 8410-2 ####[facility] LABIA [id number] [place] [address] [place] Nucleated RBC (Bld) [#/Vol] 10*3/uL Normal <0.01 [facility] Comment on above: Order Comment: Speci men Type: BLOOD SPECIMENOrdering Facility: [facility] Address: [address] [place] [address] Performed By: #### 5 8410-2 ####[facility] LABIA [id number] [place] [address] [place] Platelet mean volume (Bld) [Entitic vol] 10.3 fL Normal 9.0-12.7 [facility] Comment on above: Order Comment: Speci men Type: BLOOD SPECIMENOrdering Facility: [facility] Address: [address] [place] [address] Performed By: #### 5 8410-2 ####[facility] LABCLIA [id number] [place] [id number] [place] Platelets (Bld) [#/Vol] 267 10*3/uL Normal 150-400 [facility] Comment on above: Order Comment: Speci men Type: BLOOD SPECIMENOrdering Facility: [facility] Address: [address] [place] [address] Performed By: #### 5 8410-2 ####[facility] LABIA [id number] [place] [address] [place] RBC (Bld) [#/Vol] 3.37 10*6/uL Low 3.90-5.20 [facility] Comment on above: Order Comment: Speci men Type: BLOOD SPECIMENOrdering Facility: [facility] Address: [address] [place] [address] Performed By: #### 5 8410-2 ####[facility] LABIA [id number] [place] [address] [place] WBC (Bld) [#/Vol] 3.17 10*3/uL Low 3.70-11.00 [facility] Comment on above: Order Comment: Speci men Type: BLOOD SPECIMENOrdering Facility: [facility] Address: [address] [place] [address] Performed By: #### 5 8410-2 ####[facility] LABIA [id number] [place] [id number] [place] CNDSon 08-08-2023 CNDS Normal [facility] CRP SerPl-mCncon 08-08-2023 CRP [Mass/Vol] mg/L Normal <0.9 [facility] Comment on above: Order Comment: Speci men Type: BLOOD SPECIMENOrdering Facility: [facility] Address: [address] [place] [address] Performed By: #### 2 4362-6, 1987-06, ####[facility] LABCLIA [id number] [address] [address] [place] Magnesium SerPl-mCncon 08-07 Magnesium [Mass/Vol] 2.0 mg/dL Normal 1.7-2.3 [facility] Comment on above: Order Comment: Speci men Type: BLOOD SPECIMENOrdering Facility: [facility] Address: [address] [place] [id number] Performed By: #### 2 4362-6, 1987-06, ####[facility] LABCLIA [id number] [place] [id number] [place] NUTRITIONon 08-08-2023 NUTRITION Normal [facility] Renal function 2000 panelon 08-08-2023 Albumin [Mass/Vol] 3.4 g/dL Low 3.9-4.9 [facility] Comment on above: Order Comment: Speci men Type: BLOOD SPECIMENOrdering Facility: [facility] Address: [address] [place] [address] Performed By: #### 2 4362-6, 1987-06, ####[facility] LABIA [id number] [address] [address] [place] Anion gap [Moles/Vol] 9 mmol/L Normal 8-15 [facility] Comment on above: Order Comment: Speci men Type: BLOOD SPECIMENOrdering Facility: [facility] Address: [address] [place] [address] Performed By: #### 2 4362-6, ####[facility] LABCLIA [id number] [address] [address] [place] Calcium [Mass/Vol] 8.7 mg/dL Normal 8.5-10.2 [facility] Comment on above: Order Comment: Speci men Type: BLOOD SPECIMENOrdering Facility: [facility] Address: [address] [place] [address] Performed By: #### 2 4362-6, ####[facility] LABIA [id number] [place] [id number] [place] Chloride [Moles/Vol] 108 mmol/L High 98-107 [facility] Comment on above: Order Comment: Speci men Type: BLOOD SPECIMENOrdering Facility: [facility] Address: [address] [place] [address] Performed By: #### 2 4362-6, ####[facility] LABIA [id number] [place] [address] [place] CO2 [Moles/Vol] 22 mmol/L Normal 22-30 [facility] Comment on above: Order Comment: Speci men Type: BLOOD SPECIMENOrdering Facility: [facility] Address: [address] [place] [address] Performed By: #### 2 4362-6, ####[facility] LABIA [id number] [place] [address] [place] Creatinine [Mass/Vol] 0.69 mg/dL Normal 0.58-0.96 [facility] Comment on above: Order Comment: Speci men Type: BLOOD SPECIMENOrdering Facility: [facility] Address: [address] [place] [address] Performed By: #### 2 4362-6, ####[facility] LABIA [id number] [place] [id number] [place] Creatinine and Glomerular filtration rate.predicted panel (S/P/Bld) 117 mL/min/1.73m??? Normal >=60 [facility] Comment on above: Order Comment: Speci men Type: BLOOD SPECIMENOrdering Facility: [facility] Address: [address] [place] [address] Result Comment: Jessica mated Glomerular Filtration Rate [...] reflect actual GFR. Performed By: #### 2 4362-6, ####[facility] LABIA [id number] [place] [id number] [place] Glucose [Mass/Vol] 89 mg/dL Normal 74-99 [facility] Comment on above: Order Comment: Geraldo marrero Type: BLOOD SPECIMENOrdering Facility: [facility] Address: [address] [place] [address] Result Comment: The [place] [employer] (ADA) provides guidance for cutoff [...] Standards of Medical Care in Diabetes 2016, [place] [employer]. Diabetes Care. 2016.39(Suppl 1). Performed By: #### 2 436-6, ####[facility] LABIA [id number] [address] [address] [place] Phosphate [Mass/Vol] 3.9 mg/dL Normal 2.7-4.8 [facility] Comment on above: Order Comment: Geraldo marrero Type: BLOOD SPECIMENOrdering Facility: [facility] Address: [address] [place] [address] Performed By: #### 2 43603-23, ####[facility] [id number] [address] [address] [place] Potassium [Moles/Vol] 4.1 mmol/L Normal 3.7-5.1 [facility] Comment on above: Order Comment: Speci men Type: BLOOD SPECIMENOrdering Facility: [facility] Address: [address] [place] [address] Performed By: #### 2 4362-6, ####[facility] [id number] [address] [address] [place] Sodium [Moles/Vol] 139 mmol/L Normal 136-144 [facility] Comment on above: Order Comment: Speci men Type: BLOOD SPECIMENOrdering Facility: [facility] Address: [address] [place] [address] Performed By: #### 2 4362-6, ####[facility] [id number] [address] [address] [place] Urea nitrogen [Mass/Vol] 7 mg/dL Normal 7-21 [facility] Comment on above: Order Comment: Speci men Type: BLOOD SPECIMENOrdering Facility: [facility] Address: [address] [place] [address] Performed By: #### 2 4362-6, ####[facility] [id number] [address] [address] [place] CBC W Auto Differential pane l (Bld)on 08-07-2023 Basophils (Bld) [#/Vol] 0.04 10*3/uL Normal <0.11 [facility] Comment on above: Order Comment: Speci men Type: BLOOD SPECIMENOrdering Facility: [facility] Address: [address] [place] [address] Performed By: #### 1 4196-0, 47621-9 ####[facility] LABCLIA [id number] [place] [address] [place] Basophils/100 WBC (Bld) 0.7 % Normal [facility] Comment on above: Order Comment: Speci men Type: BLOOD SPECIMENOrdering Facility: [facility] Address: [address] [place] [address] Performed By: #### 1 4196-0, 47225-7 ####[facility] LABCLIA [id number] [place] [address] [place] Differential cell count method Nom (Bld) Auto Normal [facility] Comment on above: Order Comment: Speci men Type: BLOOD SPECIMENOrdering Facility: [facility] Address: [address] [place] [address] Performed By: #### 1 4196-0, 76063-1 ####[facility] LABCLIA [id number] [place] [address] [place] Eosinophils (Bld) [#/Vol] 0.10 10*3/uL Normal <0.46 [facility] Comment on above: Order Comment: Speci men Type: BLOOD SPECIMENOrdering Facility: [facility] Address: [address] [place] [address] Performed By: #### 1 4196-0, 10100-9 ####[facility] LABCLIA [id number] [place] [address] [place] Eosinophils/100 WBC (Bld) 1.8 % Normal [facility] Comment on above: Order Comment: Speci men Type: BLOOD SPECIMENOrdering Facility: [facility] Address: [address] [place] [address] Performed By: #### 1 4196-0, 06758-9 ####[facility] LABCLIA [id number] [place] [address] [place] Erythrocyte distribution width (RBC) [Ratio] 12.6 % Normal 11.5-15.0 [facility] Comment on above: Order Comment: Speci men Type: BLOOD SPECIMENOrdering Facility: [facility] Address: [address] [place] [address] Performed By: #### 1 4196-0, 04622-3 ####[facility] LABCLIA [id number] [place] [address] [place] Hematocrit (Bld) [Volume fraction] 30.4 % Low 36.0-46.0 [facility] Comment on above: Order Comment: Speci men Type: BLOOD SPECIMENOrdering Facility: [facility] Address: [address] [place] [address] Performed By: #### 1 4196-0, 11057-9 ####[facility] LABCLIA [id number] [place] [address] [place] Hemoglobin (Bld) [Mass/Vol] 10.1 g/dL Low 11.5-15.5 [facility] Comment on above: Order Comment: Speci men Type: BLOOD SPECIMENOrdering Facility: [facility] Address: [address] [place] [address] Performed By: #### 1 4196-0, 00433-5 ####[facility] LABCLIA [id number] [place] [address] [place] Immature granulocytes (Bld) [#/Vol] 10*3/uL Normal <0.10 [facility] Comment on above: Order Comment: Speci men Type: BLOOD SPECIMENOrdering Facility: [facility] Address: [address] [place] [address] Performed By: #### 1 4196-0, 04258-9 ####[facility] LABCLIA [id number] [place] [address] [place] Immature granulocytes/100 WBC (Bld) 0.2 % Normal [facility] Comment on above: Order Comment: Speci men Type: BLOOD SPECIMENOrdering Facility: [facility] Address: [address] [place] [address] Performed By: #### 1 4196-0, 07836-4 ####[facility] LABCLIA [id number] [place] [address] [place] Lymphocytes (Bld) [#/Vol] 1.13 10*3/uL Normal 1.00-4.00 [facility] Comment on above: Order Comment: Speci men Type: BLOOD SPECIMENOrdering Facility: [facility] Address: [address] [place] [address] Performed By: #### 1 4196-0, 27902-4 ####[facility] LABIA [id number] [place] [address] [place] Lymphocytes/100 WBC (Bld) 20.8 % Normal [facility] Comment on above: Order Comment: Speci men Type: BLOOD SPECIMENOrdering Facility: [facility] Address: [address] [place] [address] Performed By: #### 1 4196-0, 21979-2 ####[facility] LABIA [id number] [place] [address] [place] MCH (RBC) [Entitic mass] 29.5 pg Normal 26.0-34.0 [facility] Comment on above: Order Comment: Speci men Type: BLOOD SPECIMENOrdering Facility: [facility] Address: [address] [place] [address] Performed By: #### 1 4196-0, 60377-4 ####[facility] LABIA [id number] [place] [address] [place] MCHC (RBC) [Mass/Vol] 33.2 g/dL Normal 30.5-36.0 [facility] Comment on above: Order Comment: Speci men Type: BLOOD SPECIMENOrdering Facility: [facility] Address: [address] [place] [address] Performed By: #### 1 4196-0, 77604-9 ####[facility] LABCLIA [id number] [place] [address] [place] MCV (RBC) [Entitic vol] 88.9 fL Normal 80.0-100.0 [facility] Comment on above: Order Comment: Speci men Type: BLOOD SPECIMENOrdering Facility: [facility] Address: [address] [place] [address] Performed By: #### 1 4196-0, 42152-4 ####[facility] LABCLIA [id number] [place] [address] [place] Monocytes (Bld) [#/Vol] 0.38 10*3/uL Normal <0.87 [facility] Comment on above: Order Comment: Speci men Type: BLOOD SPECIMENOrdering Facility: [facility] Address: [address] [place] [address] Performed By: #### 1 4196-0, 69034-0 ####[facility] LABIA [id number] [place] [address] [place] Monocytes/100 WBC (Bld) 7.0 % Normal [facility] Center Comment on above: Order Comment: Speci men Type: BLOOD SPECIMENOrdering Facility: [facility] Address: [address] [place] [address] Performed By: #### 1 4196-0, ####[facility] LABIA [id number] [place] [address] [place] Neutrophils (Bld) [#/Vol] 3.78 10*3/uL Normal 1.45-7.50 [facility] Comment on above: Order Comment: Speci men Type: BLOOD SPECIMENOrdering Facility: [facility] Address: [address] [place] [address] Performed By: #### 1 4196-0, 45702-2 ####[facility] LABIA [id number] [place] [address] [place] Neutrophils/100 WBC (Bld) 69.5 % Normal [facility] Comment on above: Order Comment: Speci men Type: BLOOD SPECIMENOrdering Facility: [facility] Address: [address] [place] [address] Performed By: #### 1 4196-0, 89398-9 ####[facility] LABCLIA [id number] [place] [address] [place] Nucleated RBC (Bld) [#/Vol] 10*3/uL Normal <0.01 [facility] Comment on above: Order Comment: Speci men Type: BLOOD SPECIMENOrdering Facility: [facility] Address: [address] [place] [address] Performed By: #### 1 4196-0, 83567-2 ####[facility] LABCLIA [id number] [place] [address] [place] Nucleated RBC/100 WBC (Bld) [Ratio] 0.0 /100 WBC Normal [facility] Comment on above: Order Comment: Speci men Type: BLOOD SPECIMENOrdering Facility: [facility] Address: [address] [place] [address] Performed By: #### 1 4196-0, 83450-1 ####[facility] LABCLIA [id number] [place] [address] [place] Platelet mean volume (Bld) [Entitic vol] 10.0 fL Normal 9.0-12.7 [facility] Comment on above: Order Comment: Speci men Type: BLOOD SPECIMENOrdering Facility: [facility] Address: [address] [place] [address] Performed By: #### 1 4196-0, 04807-8 ####[facility] LABCLIA [id number] [place] [address] [place] Platelets (Bld) [#/Vol] 271 10*3/uL Normal 150-400 [facility] Comment on above: Order Comment: Speci men Type: BLOOD SPECIMENOrdering Facility: [facility] Address: [address] [place] [address] Performed By: #### 1 4196-0, 66720-9 ####[facility] LABCLIA [id number] [place] [address] [place] RBC (Bld) [#/Vol] 3.42 10*6/uL Low 3.90-5.20 [facility] Comment on above: Order Comment: Speci men Type: BLOOD SPECIMENOrdering Facility: [facility] Address: [address] [place] [address] Performed By: #### 1 4196-0, 43789-9 ####[facility] LABCLIA [id number] [place] [address] [place] WBC (Bld) [#/Vol] 5.44 10*3/uL Normal 3.70-11.00 [facility] Comment on above: Order Comment: Speci men Type: BLOOD SPECIMENOrdering Facility: [facility] Address: [address] [place] [address] Performed By: #### 1 4196-0, 90748-8 ####[facility] LABCLIA [id number] [place] [address] [place] Comprehensive metabolic 2000 panelon 08-07-2023 Albumin [Mass/Vol] 3.7 g/dL Low 3.9-4.9 [facility] Comment on above: Order Comment: Speci men Type: BLOOD SPECIMENOrdering Facility: [facility] Address: [address] [place] [address] Performed By: #### 2 4323-8, 09178-3, 3040-3 ####[facility] LABCLIA [id number] [place] [address] [place] ALP [Catalytic activity/Vol] 58 U/L Normal 34-123 [facility] Comment on above: Order Comment: Speci men Type: BLOOD SPECIMENOrdering Facility: [facility] Address: [address] [place] [id number] Performed By: #### 2 4323-8, 75521-8, 3 ####[facility] LABCLIA [id number] [address] [address] [place] ALT [Catalytic activity/Vol] 16 U/L Normal 7-38 [facility] Comment on above: Order Comment: Speci men Type: BLOOD SPECIMENOrdering Facility: [facility] Address: [address] [place] [address] Performed By: #### 2 4323-8, , 3 ####[facility] LABCLIA [id number] [place] [address] [place] Anion gap [Moles/Vol] 8 mmol/L Normal 8-15 [facility] Comment on above: Order Comment: Speci men Type: BLOOD SPECIMENOrdering Facility: [facility] Address: [address] [place] [address] Performed By: #### 2 4323-8, , 3 ####[facility] LABCLIA [id number] [place] [address] [place] AST [Catalytic activity/Vol] 18 U/L Normal 13-35 [facility] Comment on above: Order Comment: Speci men Type: BLOOD SPECIMENOrdering Facility: [facility] Address: [address] [place] [place] [id number] Performed By: #### 2 4323-8, , 3 ####[facility] LABCLIA [id number] [place] [address] [place] Bilirubin [Mass/Vol] 0.2 mg/dL Normal 0.2-1.3 [facility] Comment on above: Order Comment: Speci men Type: BLOOD SPECIMENOrdering Facility: [facility] Address: [address] [place] [address] Performed By: #### 2 4323-8, 13610-5, 3039-3 ####[facility] LABCLIA [id number] [place] [address] [place] Calcium [Mass/Vol] 8.0 mg/dL Low 8.5-10.2 [facility] Comment on above: Order Comment: Speci men Type: BLOOD SPECIMENOrdering Facility: [facility] Address: [address] [place] [address] Performed By: #### 2 4323-8, , 3039-3 ####[facility] LABCLIA [id number] [place] [address] [place] Chloride [Moles/Vol] 108 mmol/L High 98-107 [facility] Comment on above: Order Comment: Speci men Type: BLOOD SPECIMENOrdering Facility: [facility] Address: [address] [place] [address] Performed By: #### 2 4323-8, , 3039-3 ####[facility] LABIA [id number] [place] [address] [place] CO2 [Moles/Vol] 23 mmol/L Normal 22-30 [facility] Comment on above: Order Comment: Speci men Type: BLOOD SPECIMENOrdering Facility: [facility] Address: [address] [place] [address] Performed By: #### 2 4323-8, , 3039-3 ####[facility] LABIA [id number] [place] [id number] [place] Creatinine [Mass/Vol] 0.60 mg/dL Normal 0.58-0.96 [facility] Comment on above: Order Comment: Speci men Type: BLOOD SPECIMENOrdering Facility: [facility] Address: [address] [place] [address] Performed By: #### 2 4323-8, , 3039-3 ####[facility] LABIA [id number] [place] [address] [place] Creatinine and Glomerular filtration rate.predicted panel (S/P/Bld) 121 mL/min/1.73m??? Normal >=60 [facility] Comment on above: Order Comment: Geraldo marrero Type: BLOOD SPECIMENOrdering Facility: [facility] Address: [address] [place] [address] Result Comment: Jessica mated Glomerular Filtration Rate [...] GFR. Performed By: #### 2 4323-8, , 3 ####[facility] LABIA [id number] [place] [address] [place] Glucose [Mass/Vol] 89 mg/dL Normal 74-99 [facility] Comment on above: Order Comment: Geraldo marrero Type: BLOOD SPECIMENOrdering Facility: [facility] Address: [address] [place] [address] Result Comment: The [place] [employer] (ADA) provides guidance for cutoff [...] Standards of Medical Care in Diabetes 2016, [place] [employer]. Diabetes Care. 2016.39(Suppl 1). Performed By: #### 2 4323-8, , 3040-3 ####[facility] LABCLIA [id number] [address] [address] [place] Potassium [Moles/Vol] 3.6 mmol/L Low 3.7-5.1 [facility] Comment on above: Order Comment: Speci men Type: BLOOD SPECIMENOrdering Facility: [facility] Address: [address] [place] [address] Performed By: #### 2 4323-8, , 3 ####[facility] LABCLIA [id number] [address] [address] [place] Protein [Mass/Vol] 5.8 g/dL Low 6.3-8.0 [facility] Comment on above: Order Comment: Speci men Type: BLOOD SPECIMENOrdering Facility: [facility] Address: [address] [place], [place] [address] Performed By: #### 2 432-8, , 3 ####[facility] LABIA [id number] [address] [address] [place] Sodium [Moles/Vol] 139 mmol/L Normal 136-144 [facility] Comment on above: Order Comment: Speci men Type: BLOOD SPECIMENOrdering Facility: [facility] Address: [address] [place] [address] Performed By: #### 2 4323-8, , 3 ####[facility] LABCLIA [id number] [address] [address] [place] Urea nitrogen [Mass/Vol] 10 mg/dL Normal 7-21 [facility] Comment on above: Order Comment: Speci men Type: BLOOD SPECIMENOrdering Facility: [facility] Address: [address] [place] [address] Performed By: #### 2 4323-8, , 3 ####[facility] LABCLIA [id number] [place] [address] [place] [id number] 08-07-2023 ECG01 Normal [facility] ED NOTEon 08-07-2023 ED NOTE HNO ID: [id number] Author: PASTORA MADERA RN Service: ? Author Type: Registered Nurse Type: ED Notes Filed: 08/07/2023 17:39 Note Text: Report given to H80 Normal [facility] ED NOTE HNO ID: [id number] Author: PASTORA MADERA, DEE Service: ? Author Type: Registered Nurse Type: ED Notes Filed: 08/07/2023 17:07 Note Text: Report attempted x1. Call back # given Normal [facility] ED NOTE HNO ID: [id number] Author: ESTEFANI WHITE CT Service: Emergency Medicine Author Type: Clinical Cloth Washer Operator Type: ED Notes Filed: 08/07/2023 09:32 Note Text: EKG complete Normal [facility] ED PROV NOTEon 08-07-2023 ED PROV NOTE Normal [facility] HISTORY PHYSICALon HISTORY PHYSICAL Normal [facility] Lactate (Bld) [Moles/Vol]on 08-07-2023 Lactate [Moles/Vol] 0.8 mmol/L Normal 0.5-2.2 [facility] Comment on above: Order Comment: Speci men Type: BLOOD SPECIMENOrdering Facility: [facility] Address: [address] [place] [address] Performed By: #### 3 2693-4 ####[facility] LABCLIA [id number] [place] [id number] [place] Lipase SerPl-cCncon 08-07-19 24 Lipase [Catalytic activity/Vol] 45 U/L Normal 16-61 [facility] Comment on above: Order Comment: Speci men Type: BLOOD SPECIMENOrdering Facility: [facility] Address: [address] [place] [address] Performed By: #### 2 4323-8, 69538-0, 3040-3 ####[facility] LABCLIA [id number] [place] [address] [place] Magnesium SerPl-mCncon 08-06 Magnesium [Mass/Vol] 1.9 mg/dL Normal 1.7-2.3 [facility] Comment on above: Order Comment: Speci men Type: BLOOD SPECIMENOrdering Facility: [facility] Address: [address] [place] [address] Performed By: #### 2 4323-8, 36223-3, 3040-3 ####[facility] LABIA [id number] [place] [address] [place] Retics #on 08-07-2023 Reticulocytes (Bld) [#/Vol] 0.82425 10*3/uL Normal 0.018-0.100 [facility] Comment on above: Order Comment: Speci men Type: BLOOD SPECIMENOrdering Facility: [facility] Address: [address] [place] [address] Performed By: #### 1 4196-0, 97327-3 ####[facility] [id number] [place] [address] [place] Reticulocytes (Bld) [#/Vol]o n 08-07-2023 Reticulocytes/100 RBC (Bld) 1.6 % Normal 0.4-2.0 [facility] Comment on above: Order Comment: Speci men Type: BLOOD SPECIMENOrdering Facility: [facility] Address: [address] [place] [address] Performed By: #### 1 4196-0, 96157-5 ####[facility] LABIA [id number] [place] [address] [place] STREPTOCOCCUS PNEUMONIAE ANT IGEN URINEon 08-07-2023 STREPTOCOCCUS PNEUMONIAE ANTIGEN URINE Normal [facility] Comment on above: Performed By: #### S PNAG ####[facility] LABIA [id number] [place] [address] [place] XR CHEST 2V FRONTAL/LATon XR CHEST 2V FRONTAL/LAT Normal [facility] CASE MANAGEMon 08-06-2023 CASE MANAGEM Normal [facility] CNDSon 08-06-2023 CNDS Normal [facility] CONSULT PROGon 08-06-2023 CONSULT PROG Normal [facility] Magnesium SerPl-mCncon 08-05 Magnesium [Mass/Vol] 1.8 mg/dL Normal 1.7-2.3 [facility] Comment on above: Order Comment: Speci men Type: BLOOD SPECIMENOrdering Facility: [facility] Address: [address] [place] [address] Performed By: #### 1 9123-9, 97010-1 ####[facility] LABORATORYCLIA [id number] [place] [address] [facility] [place] NURSING PROGon 08-06-2023 NURSING PROG Normal [facility] NUTRITIONon 08-06-2023 NUTRITION Normal [facility] Renal function 2000 panelon 08-06-2023 Albumin [Mass/Vol] 3.5 g/dL Low 3.9-4.9 [facility] Comment on above: Order Comment: Speci men Type: BLOOD SPECIMENOrdering Facility: [facility] Address: [address] [place] [address] Performed By: #### 1 9123-9, 34284-7 ####[facility] LABORATORYCLIA [id number] [place] [address] [place] Anion gap [Moles/Vol] 10 mmol/L Normal 8-15 [facility] Comment on above: Order Comment: Speci men Type: BLOOD SPECIMENOrdering Facility: [facility] Address: [address] [place] [address] Performed By: #### 1 9123-9, 58348-5 ####[facility] LABORATORYCLIA [id number] [place] [address] [place] Calcium [Mass/Vol] 8.2 mg/dL Low 8.5-10.2 [facility] Comment on above: Order Comment: Speci men Type: BLOOD SPECIMENOrdering Facility: [facility] Address: [address] [place] [address] Performed By: #### 1 9123-9, 28463-8 ####[facility] LABORATORYCLIA [id number] [place] [address] [place] Chloride [Moles/Vol] 106 mmol/L Normal 98-107 [facility] Comment on above: Order Comment: Speci men Type: BLOOD SPECIMENOrdering Facility: [facility] Address: [address] [place] [address] Performed By: #### 1 9123-9, 20245-2 ####[facility] LABORATORYCLIA [id number] [place] [address] [place] CO2 [Moles/Vol] 23 mmol/L Normal 22-30 [facility] Comment on above: Order Comment: Speci men Type: BLOOD SPECIMENOrdering Facility: [facility] Address: [address] [place] [address] Performed By: #### 1 9123-9, 54355-9 ####[facility] LABORATORYCLIA [id number] [place] [address] [place] Creatinine [Mass/Vol] 0.71 mg/dL Normal 0.58-0.96 [facility] Comment on above: Order Comment: Speci men Type: BLOOD SPECIMENOrdering Facility: [facility] Address: [address] [place] [address] Performed By: #### 1 9123-9, 70839-8 ####[facility] LABORATORYCLIA [id number] [place] [address] [place] Creatinine and Glomerular filtration rate.predicted panel (S/P/Bld) 115 mL/min/1.73m??? Normal >=60 [facility] Comment on above: Order Comment: Speci men Type: BLOOD SPECIMENOrdering Facility: [facility] Address: [address] [place] [address] Result Comment: Jessica mated Glomerular Filtration Rate [...] actual GFR. Performed By: #### 1 9123-9, 27832-0 ####[facility] [id number] [place] [address] [place] Glucose [Mass/Vol] 106 mg/dL High 74-99 [facility] Comment on above: Order Comment: Geraldo marrero Type: BLOOD SPECIMENOrdering Facility: [facility] Address: [address] [place] [address] Result Comment: The [place] [employer] (ADA) provides guidance for cutoff [...] Standards of Medical Care in Diabetes 2016, [place] [employer]. Diabetes Care. 2016.39(Suppl 1). Performed By: #### 1 9123-9, 11093-0 ####[facility] LABORATORYIA [id number] [place] [address] [place] Phosphate [Mass/Vol] 4.2 mg/dL Normal 2.7-4.8 [facility] Comment on above: Order Comment: Geraldo marrero Type: BLOOD SPECIMENOrdering Facility: [facility] Address: [address] [place] [address] Performed By: #### 1 9123-9, 43651-0 ####[facility] LABORATORYIA [id number] [place] [address] [place] Potassium [Moles/Vol] 3.8 mmol/L Normal 3.7-5.1 [facility] Comment on above: Order Comment: Speci men Type: BLOOD SPECIMENOrdering Facility: [facility] Address: [address] [place] [address] Performed By: #### 1 9123-9, 42282-6 ####[facility] LABORATORYCLIA [id number] [place] [address] [place] Sodium [Moles/Vol] 139 mmol/L Normal 136-144 [facility]ital Comment on above: Order Comment: Speci men Type: BLOOD SPECIMENOrdering Facility: [facility] Address: [address] [place] [address] Performed By: #### 1 9123-9, 63649-9 ####[facility] LABORATORYCLIA [id number] [place] [address] [place] Urea nitrogen [Mass/Vol] 12 mg/dL Normal 7-21 [facility] Comment on above: Order Comment: Speci men Type: BLOOD SPECIMENOrdering Facility: [facility] Address: [address] [place] [address] Performed By: #### 1 9123-9, 96698-3 ####[facility] LABORATORYCLIA [id number] [place] [address] [place] ALLIED HEALTHon 08-05-2023 ALLIED HEALTH Normal [facility] 2023 CASE MGT INIT [facility] CONSULTon 08-05-2023 CONSULT Normal [facility] NUTRITIONon 08-05-2023 NUTRITION Normal [facility] CBC W Auto Differential pane l (Bld)on 08-04-2023 Basophils (Bld) [#/Vol] 0.04 10*3/uL Normal <0.11 [facility] Comment on above: Order Comment: Speci men Type: BLOOD SPECIMENOrdering Facility: [facility] Address: [address] [place] [address] Performed By: #### 5 7021-8 ####[facility] LABORATORYCLIA [id number] [place] [address] [place] Basophils/100 WBC (Bld) 0.5 % Normal [facility] Comment on above: Order Comment: Speci men Type: BLOOD SPECIMENOrdering Facility: [facility] Address: [address] [place] [address] Performed By: #### 5 7021-8 ####[facility] LABORATORYCLIA [id number] [place] [id number] [place] Differential cell count method Nom (Bld) Auto Normal [facility] Comment on above: Order Comment: Speci men Type: BLOOD SPECIMENOrdering Facility: [facility] Address: [address] [place] [address] Performed By: #### 5 7021-8 ####[facility] LABORATORYCLIA [id number] [place] [address] [place] Eosinophils (Bld) [#/Vol] 0.05 10*3/uL Normal <0.46 [facility] Comment on above: Order Comment: Speci men Type: BLOOD SPECIMENOrdering Facility: [facility] Address: [address] [place] [address] Performed By: #### 5 7021-8 ####[facility] [id number] [address] [place] Eosinophils/100 WBC (Bld) 0.6 % Normal [facility] Comment on above: Order Comment: Speci men Type: BLOOD SPECIMENOrdering Facility: [facility] Address: [address] [place] [address] Performed By: #### 5 7021-8 ####[facility] LABORATORYCLIA [id number] [place] [address] [place] Erythrocyte distribution width (RBC) [Ratio] 12.8 % Normal 11.5-15.0 [facility] Comment on above: Order Comment: Speci men Type: BLOOD SPECIMENOrdering Facility: [facility] Address: [address] [place] [address] Performed By: #### 5 7021-8 ####[facility] LABORATORYCLIA [id number] [facility] [address] [place] Hematocrit (Bld) [Volume fraction] 36.2 % Normal 36.0-46.0 [facility] Comment on above: Order Comment: Speci men Type: BLOOD SPECIMENOrdering Facility: [facility] Address: [address] [place] [address] Performed By: #### 5 7021-8 ####[facility] LABORATORYCLIA [id number] [facility] [place] [address] [place] Hemoglobin (Bld) [Mass/Vol] 12.0 g/dL Normal 11.5-15.5 [facility] Comment on above: Order Comment: Speci men Type: BLOOD SPECIMENOrdering Facility: [facility] Address: [address] [place] [address] Performed By: #### 5 7021-8 ####[facility] [id number] [facility] [place]USVDAL[place] [id number] [place] Immature granulocytes (Bld) [#/Vol] 10*3/uL Normal <0.10 [facility] Comment on above: Order Comment: Speci men Type: BLOOD SPECIMENOrdering Facility: [facility] Address: [address] [place] [address] Performed By: #### 5 7021-8 ####[facility] LABORATORYIA [id number] [place] [address] [place] Immature granulocytes/100 WBC (Bld) 0.2 % Normal [facility] Comment on above: Order Comment: Speci men Type: BLOOD SPECIMENOrdering Facility: [facility] Address: [address] [place] [address] Performed By: #### 5 7021-8 ####[facility] LABORATORYIA [id number] [place] [address] [place] Lymphocytes (Bld) [#/Vol] 1.30 10*3/uL Normal 1.00-4.00 [facility] Comment on above: Order Comment: Speci men Type: BLOOD SPECIMENOrdering Facility: [facility] Address: [address] [place] [address] Performed By: #### 5 7021-8 ####[facility] [id number] [place] [id number] [place] Lymphocytes/100 WBC (Bld) 14.9 % Normal [facility] Comment on above: Order Comment: Speci men Type: BLOOD SPECIMENOrdering Facility: [facility] Address: [address] [place] [address] Performed By: #### 5 7021-8 ####[facility] [id number] [place] [address] [place] MCH (RBC) [Entitic mass] 30.1 pg Normal 26.0-34.0 [facility] Comment on above: Order Comment: Speci men Type: BLOOD SPECIMENOrdering Facility: [facility] Address: [address] [place] [address] Performed By: #### 5 7021-8 ####[facility] [id number] [place] [address] [place] MCHC (RBC) [Mass/Vol] 33.1 g/dL Normal 30.5-36.0 [facility] Comment on above: Order Comment: Speci men Type: BLOOD SPECIMENOrdering Facility: [facility] Address: [address] [place] [address] Performed By: #### 5 7021-8 ####[facility] [id number] [place] [id number] [place] MCV (RBC) [Entitic vol] 90.7 fL Normal 80.0-100.0 [facility] Comment on above: Order Comment: Speci men Type: BLOOD SPECIMENOrdering Facility: [facility] Address: [address] [place] [address] Performed By: #### 5 7021-8 ####[facility] LABORATORYIA [id number] [place] [address] [place] Monocytes (Bld) [#/Vol] 0.39 10*3/uL Normal <0.87 [facility] Comment on above: Order Comment: Speci men Type: BLOOD SPECIMENOrdering Facility: [facility] Address: [address] [place] [address] Performed By: #### 5 7021-8 ####[facility] LABORATORYCLIA [id number] [facility]USVD.[facility]TH [place] [address] [place] Monocytes/100 WBC (Bld) 4.5 % Normal [facility] Comment on above: Order Comment: Speci men Type: BLOOD SPECIMENOrdering Facility: [facility] Address: [address] [place] [address] Performed By: #### 5 7021-8 ####[facility] [id number] [place] [address] [place] Neutrophils (Bld) [#/Vol] 6.91 10*3/uL Normal 1.45-7.50 [facility] Comment on above: Order Comment: Speci men Type: BLOOD SPECIMENOrdering Facility: [facility] Address: [address] [place] [address] Performed By: #### 5 7021-8 ####[facility] [id number] [place] [address] [place] Neutrophils/100 WBC (Bld) 79.3 % Normal [facility] Comment on above: Order Comment: Speci men Type: BLOOD SPECIMENOrdering Facility: [facility] Address: [address] [place] [address] Performed By: #### 5 7021-8 ####[facility] LABORATORYCLIA [id number] [facility] [address] [place] Nucleated RBC (Bld) [#/Vol] 10*3/uL Normal <0.01 [facility] Comment on above: Order Comment: Speci men Type: BLOOD SPECIMENOrdering Facility: [facility] Address: [address] [place] [address] Performed By: #### 5 7021-8 ####[facility] LABORATORYIA [id number] [place] [address] [place] Nucleated RBC/100 WBC (Bld) [Ratio] 0.0 /100 WBC Normal [facility] Comment on above: Order Comment: Speci men Type: BLOOD SPECIMENOrdering Facility: [facility] Address: [address] [place] [address] Performed By: #### 5 7021-8 ####[facility] LABORATORYCLIA [id number] [place] [address] [place] Platelet mean volume (Bld) [Entitic vol] 10.5 fL Normal 9.0-12.7 [facility] Comment on above: Order Comment: Speci men Type: BLOOD SPECIMENOrdering Facility: [facility] Address: [address] [place] [address] Performed By: #### 5 7021-8 ####[facility] LABORATORYCLIA [id number] [place] [address] [place] Platelets (Bld) [#/Vol] 328 10*3/uL Normal 150-400 [facility] Comment on above: Order Comment: Speci men Type: BLOOD SPECIMENOrdering Facility: [facility] Address: [address] [place] [address] Performed By: #### 5 7021-8 ####[facility] LABORATORYCLIA [id number] [place] [address] [place] RBC (Bld) [#/Vol] 3.99 10*6/uL Normal 3.90-5.20 [facility] Comment on above: Order Comment: Speci men Type: BLOOD SPECIMENOrdering Facility: [facility] Address: [address] [place] [address] Performed By: #### 5 7021-8 ####[facility] LABORATORYCLIA [id number] [place] [address] [place] WBC (Bld) [#/Vol] 8.71 10*3/uL Normal 3.70-11.00 [facility] Comment on above: Order Comment: Speci men Type: BLOOD SPECIMENOrdering Facility: [facility] Address: [address] [id number] Performed By: #### 5 7021-8 ####[facility] LABORATORYCLIA [id number] [place] [address] [place] CNOVon 08-04-2023 CNOV Normal [facility] CNPNon 08-04-2023 CNPN Normal [facility] CONSULTon 08-04-2023 CONSULT Normal [facility] CT ABD/PEL W IVCONon 024 CT ABD/PEL W IVCON Normal [facility] BRAIN WO IVCONon 08-04-[address] BRAIN WO IVCON [facility] Comprehensive metabolic 2000 panelon 08-04-2023 Albumin [Mass/Vol] 3.8 g/dL Low 3.9-4.9 [facility] Comment on above: Order Comment: Speci men Type: BLOOD SPECIMENOrdering Facility: [facility] Address: [address] [place] [address] Performed By: #### 2 4323-8, , 3 ####[facility] [id number] [place] [address] [place] ALP [Catalytic activity/Vol] 76 U/L Normal 34-123 [facility] Comment on above: Order Comment: Speci men Type: BLOOD SPECIMENOrdering Facility: [facility] Address: [facility] [place] [address] Performed By: #### 2 4323-8, , 3039-3 ####[facility] [id number] [place] [address] [place] ALT [Catalytic activity/Vol] Normal [facility] Comment on above: Order Comment: Speci men Type: BLOOD SPECIMENOrdering Facility: [facility] Address: [facility] [place] [address] Result Comment: Unab le to assay due to interference from hemolysis. Suggest reorder as clinically indicated. Performed By: #### 2 4323-8, , 0-3 ####[facility] LABORATORYIA [id number] [place] [address] [place] Anion gap [Moles/Vol] 10 mmol/L Normal 8-15 [facility] Comment on above: Order Comment: Speci men Type: BLOOD SPECIMENOrdering Facility: [facility] Address: [address] [place] [address] Performed By: #### 2 4323-8, 64539-8, 0-3 ####[facility] LABORATORYCLIA [id number] [place] [address] [place] AST [Catalytic activity/Vol] Normal [facility] Comment on above: Order Comment: Speci men Type: BLOOD SPECIMENOrdering Facility: [facility] Address: [address] [place] [address] Result Comment: Unab le to assay due to interference from hemolysis. Suggest reorder as clinically indicated. Performed By: #### 2 4323-8, , 3039-3 ####[facility] LABORATORYCLIA [id number] [place] [address] [place] Bilirubin [Mass/Vol] 0.3 mg/dL Normal 0.2-1.3 [facility] Comment on above: Order Comment: Speci men Type: BLOOD SPECIMENOrdering Facility: [facility] Address: [address] [place] [address] Performed By: #### 2 4323-8, , 3039-3 ####[facility] LABORATORYCLIA [id number] [place] [address] [place] Calcium [Mass/Vol] 8.7 mg/dL Normal 8.5-10.2 [facility] Comment on above: Order Comment: Speci men Type: BLOOD SPECIMENOrdering Facility: [facility] Address: [address] [place] [address] Performed By: #### 2 4323-8, 23923-4, 0-3 ####[facility] LABORATORYCLIA [id number] [place] [address] [place] Chloride [Moles/Vol] 106 mmol/L Normal 98-107 [facility] Comment on above: Order Comment: Speci men Type: BLOOD SPECIMENOrdering Facility: [facility] Address: [address] [place] [address] Performed By: #### 2 4323-8, 44027-4, 3 ####[facility] LABORATORYCLIA [id number] [facility] [place] [address] [place] CO2 [Moles/Vol] 23 mmol/L Normal 22-30 [facility] Comment on above: Order Comment: Speci men Type: BLOOD SPECIMENOrdering Facility: [facility] Address: [address] [place], [place] [address] Performed By: #### 2 4323-8, , 3 ####[facility] LABORATORYCLIA [id number] [place] [address] [place] Creatinine [Mass/Vol] 0.71 mg/dL Normal 0.58-0.96 [facility] Comment on above: Order Comment: Speci men Type: BLOOD SPECIMENOrdering Facility: [facility] Address: [address] [place], [place] [address] Performed By: #### 2 4323-8, , 3 ####[facility] LABORATORYCLIA [id number] [place] [address] [facility] [place] Creatinine and Glomerular filtration rate.predicted panel (S/P/Bld) 115 mL/min/1.73m??? Normal >=60 [facility] l Comment on above: Order Comment: Speci men Type: BLOOD SPECIMENOrdering Facility: [facility] Address: [address] [place], [place] [address] Result Comment: Jessica mated Glomerular Filtration Rate [...] GFR. Performed By: #### 2 4323-8, , 3039-3 ####[facility] [id number] [facility] [place] [address] [place] Glucose [Mass/Vol] 82 mg/dL Normal 74-99 [facility] Comment on above: Order Comment: Speci men Type: BLOOD SPECIMENOrdering Facility: [facility] Address: [address] [place] [address] Result Comment: The [place] Diabetes Association (ADA) provides guidance for cutoff [...] Standards of Medical Care in Diabetes 2016, [place] [employer]. Diabetes Care. 2016.39(Suppl 1). Performed By: #### 2 4323-8, , 3039-3 ####[facility] [id number] [place] [address] [place] Potassium [Moles/Vol] 4.3 mmol/L Normal 3.7-5.1 [facility] Comment on above: Order Comment: Speci men Type: BLOOD SPECIMENOrdering Facility: [facility] Address: [address] [place] [address] Performed By: #### 2 4323-8, 70782-8, 3039-3 ####[facility] [id number] [place] [address] [place] Protein [Mass/Vol] 6.8 g/dL Normal 6.3-8.0 [facility] Comment on above: Order Comment: Speci men Type: BLOOD SPECIMENOrdering Facility: [facility] Address: [address] [place] [address] Performed By: #### 2 4323-8, 84145-3, 0-3 ####[facility] LABORATORYCLIA [id number] [facility] [place] [address] [place] Sodium [Moles/Vol] 139 mmol/L Normal 136-144 [facility] Comment on above: Order Comment: Speci men Type: BLOOD SPECIMENOrdering Facility: [facility] Address: [address] [place] [address] Performed By: #### 2 4323-8, 97114-9, 0-3 ####[facility] LABORATORYCLIA [id number] [facility] [place] [address] [place] Urea nitrogen [Mass/Vol] 6 mg/dL Low 7- [facility] Comment on above: Order Comment: Speci men Type: BLOOD SPECIMENOrdering Facility: [facility] Address: [address] [place] [address] Performed By: #### 2 4323-8, , 3 ####[facility] LABORATORYCLIA [id number] [facility] [place] [address] [place] ECG COMPLETEon 08-04-2023 ECG COMPLETE [facility] ED NOTEon 08-04-2023 ED NOTE HNO ID: [id number] Author: ANAM NAILS, DEE Service: Emergency Medicine Author Type: Registered Nurse Type: ED Notes Filed: 08/04/2023 14:44 Note Text: Pt remains unable to provide urine sample at this time. [facility] ED NOTE HNO ID: [id number] Author: ANAM NAILS, DEE Service: Emergency Medicine Author Type: Registered Nurse Type: ED Notes Filed: 08/04/2023 14:43 Note Text: Pt unable to provide urine sample at this time. [facility] ED NOTE HNO ID: [id number] Author: CORIE BILLINGSLEY, Medic Service: ? 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 Pt had had multiple episodes of diarrhea as well. [facility] ED PROV NOTEon 08-04-2023 ED PROV NOTE Normal [facility] HIGH SENSITIVITY TROPONIN T (INITIAL)on 08-04-2023 Troponin T.cardiac High sensitivity method [Mass/Vol] <6 Normal <12 [facility] Comment on above: Order Comment: Geraldo marrero Type: BLOOD SPECIMENOrdering Facility: [facility] Address: [address] [place] [address] Result Comment: When assessing risk for acute [...] 30 day MACE. Performed By: #### L [id number] ####[facility]ENTERCLIA [id number] [address] [place] HIGH SENSITIVITY TROPONIN T (SECOND)on 08-04-2023 Troponin T.cardiac High sensitivity method [Mass/Vol] <6 Normal <12 [facility] Comment on above: Order Comment: Geraldo marrero Type: BLOOD SPECIMENOrdering Facility: [facility] Address: [address] [place] [address] Result Comment: When assessing risk for acute [...] 30 day MACE. Performed By: #### L [id number] ####[facility] LABORATORYCLIA [id number] [place] [address] [place] HISTORY PHYSICALon 4 HISTORY PHYSICAL Normal [facility] pital Lipase SerPl-cCncon 08-04-19 24 Lipase [Catalytic activity/Vol] 52 U/L Normal 16-61 [facility] Comment on above: Order Comment: Geraldo [facility] Type: BLOOD SPECIMENOrdering Facility: [facility] Address: [address] [place] [address] Performed By: #### 2 4323-8, 53304-7, 3039-3 ####[facility] [id number] [place] [address] [place] Magnesium SerPl-mCncon 08-03 Magnesium [Mass/Vol] 1.9 mg/dL Normal 1.7-2.3 [facility] Comment on above: Order Comment: Speci men Type: BLOOD SPECIMENOrdering Facility: [facility] Address: [address] [place] [address] Performed By: #### 2 4323-8, , 3039-3 ####[facility] [id number] [place] [id number] [place] SEPSIS LACTATE W/ REFLEX (IN ITIAL)on 08-04-2023 Lactate [Moles/Vol] 1.5 mmol/L Normal 0.0-2.0 [facility] Comment on above: Order Comment: Speci men Type: BLOOD SPECIMENOrdering Facility: [facility] Address: [address] [place] [address] Performed By: #### S LACTR ####[facility] [id number] [place] [id number] [facility] Urinalysis complete panel (U )on 08-04-2023 Bilirubin Ql (U) Negative Normal Negative [facility] Comment on above: Order Comment: Speci men Type: URINE SPECIMENOrdering Facility: [facility] Address: [address] [place] [address] Performed By: #### 2 4356-8 ####[facility] [id number] [place] [address] [place] Clarity (Unsp spec) Clear Normal Clear [facility] Comment on above: Order Comment: Speci men Type: URINE SPECIMENOrdering Facility: [facility] Address: [address] [place] [address] Performed By: #### 2 4356-8 ####[facility] [id number] [place] [address] [facility] [place] Color (U) Yellow Normal Yellow [facility] Comment on above: Order Comment: Speci men Type: URINE SPECIMENOrdering Facility: [facility] Address: [address] [place] [address] Performed By: #### 2 4356-8 ####[facility] [id number] [place] [address] [place] Glucose Test strip (U) [Mass/Vol] Negative Normal Trace, Negative [facility] Comment on above: Order Comment: Speci men Type: URINE SPECIMENOrdering Facility: [facility] Address: [address] [place] [address] Performed By: #### 2 4356-8 ####[facility] [id number] [place] [address] [place] Hemoglobin Ql (U) Negative Normal Negative, Trace [facility] Comment on above: Order Comment: Speci men Type: URINE SPECIMENOrdering Facility: [facility] Address: [address] [place] [address] Performed By: #### 2 4356-8 ####[facility] [id number] [address] [place] Ketones Ql (U) Negative Normal Negative, Trace [facility] Comment on above: Order Comment: Speci men Type: URINE SPECIMENOrdering Facility: [facility] Address: [address] [place] [address] Performed By: #### 2 4356-8 ####[facility] [id number] [place] [address] [place] Leukocyte esterase Test strip Ql (U) Negative Normal Negative, 25 Patito/uL [facility] Comment on above: Order Comment: Speci men Type: URINE SPECIMENOrdering Facility: [facility] Address: [address] [place] [address] Performed By: #### 2 4356-8 ####[facility] LABORATORYIA [id number] [place] [address] [place] Nitrite Ql (U) Negative Normal Negative [facility] Comment on above: Order Comment: Speci men Type: URINE SPECIMENOrdering Facility: [facility] Address: [address] [place] [address] Performed By: #### 2 4356-8 ####[facility] [id number] [place] [address] [place] pH (U) 7.5 [pH] Normal 5.0-8.0 [facility] Comment on above: Order Comment: Speci men Type: URINE SPECIMENOrdering Facility: [facility] Address: [address] [place] [address] Performed By: #### 2 4356-8 ####[facility] [id number] [place] [address] [place] Protein (U) [Mass/Vol] Trace Normal Trace, Negative [facility] Comment on above: Order Comment: Speci men Type: URINE SPECIMENOrdering Facility: [facility] Address: [address] [place] [address] Performed By: #### 2 4356-8 ####[facility] [id number] [place] [address] [place] RBC LM.HPF (Urine sed) [#/Area] 0-3 /HPF Normal 0-3 /HPF [facility] Comment on above: Order Comment: Speci men Type: URINE SPECIMENOrdering Facility: [facility] Address: [address] [place] [address] Performed By: #### 2 4356-8 ####[facility] [id number] [place] [address] [place] Specific gravity (U) [Rel density] <1.005 Low 1.005-1.030 [facility] Comment on above: Order Comment: Speci men Type: URINE SPECIMENOrdering Facility: [facility] Address: [address] [place] [address] Performed By: #### 2 4356-8 ####[facility] [id number] [place] [address] [place] Urobilinogen Ql (U) Normal Normal Normal [facility] Comment on above: Order Comment: Speci men Type: URINE SPECIMENOrdering Facility: [facility] Address: [address] [place], [place] [address] Performed By: #### 2 4356-8 ####[facility] LABORATORYCLIA [id number] [place] [address] [place] WBC LM.HPF (Urine sed) [#/Area] 0-5 /HPF Normal 0-5 /HPF [facility] Comment on above: Order Comment: Speci men Type: URINE SPECIMENOrdering Facility: [facility] Address: [address] [place] [address] Performed By: #### 2 4356-8 ####[facility] LABORATORYCLIA [id number] [place] [address] [place] XR CHEST 1V FRONTAL PORTon 0 08-04-2023 XR CHEST 1V FRONTAL PORT Normal [facility] Activated partial thrombopla stin time (aPTT) in platelet poor plasma by coagulation aOrdered By: Jeramy Cunningham on 07-31-2023 aPTT Coag (PPP) [Time] 27.0 s 25.1-36.5 [facility] Comment on above: A hematocrit value g reater than 55% may lead to inaccurate results in coagulation testing. Patients having hematocrit values >55% require a special collection tube for coagulation studies. Please contact the laboratory at [phone] for redraw instructions. Alanine aminotransferase [En zymatic activity/volume] in Serum or PlasmaOrdered By: Jeramy Cunningham on 07-31-2023 ALT [Catalytic activity/Vol] 29 U/L Normal 7-52 [facility] Comment on above: Performed By: #### A CORY, CG, CUU #### [facility] [address] Albumin [Mass/volume] in Ser um or Plasma by Bromocresol green (BCG) dye binding methoOrdered By: Jeramy Cunningham on 07-31-2023 Albumin BCG dye [Mass/Vol] 4.0 g/dL 3.5-5.7 [facility] Alkaline phosphatase [Enzyma tic activity/volume] in Serum or PlasmaOrdered By: Jeramy Cunningham on 07-31-2023 ALP [Catalytic activity/Vol] 58 U/L Normal 34-104 [facility] Comment on above: Performed By: #### A CORY, ALIYAHG, CUU #### [address] Aspartate aminotransferase [ Enzymatic activity/volume] in Serum or PlasmaOrdered By: Jeramy Cunningham on 07-31-2023 AST [Catalytic activity/Vol] 34 U/L Normal 13-39 [facility] Comment on above: Performed By: #### A CORY ELIS, CUU #### [address] Automated basophil %Ordered By: Jeramy Cunningham on 07-31-2023 Basophils/100 WBC (Bld) 0.6 % Normal . [facility] Comment on above: Performed By: #### A CORY, JOSESITO, CUU #### [address] Automated basophil countOrde red By: Jeramy Cunningham on 07-31-2023 Basophils (Bld) [#/Vol] 0.0 10*3/uL Normal 0.0-0.2 [facility] Comment on above: Result Comment: PERF ORMED BY: [place] [address] PATHOLOGIST FABRIC FINISHER BAUTISTA BAKER M.D. Performed By: #### A CORY, [facility], CUU #### [address] Automated blood monocyte cou ntOrdered By: Jeramy Cunningham on 07-31-2023 Monocytes (Bld) [#/Vol] 0.2 10*3/uL Normal 0.0-0.8 [facility] Comment on above: Performed By: #### A CORY, CG, CUU #### [address] Automated eosinophil %Ordere d By: Jeramy Cunningham on 07-31-2023 Eosinophils/100 WBC (Bld) 0.2 % Normal . [facility] Comment on above: Performed By: #### A CORY, ELIS, CUU #### [address] Automated eosinophil countOr dered By: Jeramy Cunningham on 07-31-2023 Eosinophils (Bld) [#/Vol] 0.0 10*3/uL Normal 0.0-0.45 [facility] Comment on above: Performed By: #### A CORY [facility]ITAL[facility], CUU #### [address] Automated monocyte %Ordered By: Jeramy Cunningham on 07-31-2023 Monocytes/100 WBC (Bld) 3.1 % Normal . [facility] Comment on above: Performed By: #### A CORY [facility]ITAL[facility], CUU #### [address] Automated neutrophil %Ordere d By: Jeramy Cunningham on 07-31-2023 Neutrophils/100 WBC (Bld) 84.9 % Normal . [facility] Comment on above: Performed By: #### A CORY [facility], CUU #### [address] Basic Metabolic Panelon 07-16 Creatinine Clr Calc Pharmacy 120.10 Normal [facility] Comment on above: Performed By: #### H EPATIC, MG, LIPASE, CMP, CBC #### [address] GFR/1.73 sq M.predicted MDRD (S/P/Bld) [Vol rate/Area] mL/min/{1.73_m2} Normal [facility] Comment on above: Performed By: #### H EPATIC, MG, LIPASE, CMP, CBC #### [place] [id number] [place] Bilirubin Test strip Ql (U)O rdered By: Jeramy Cunningham on 07-31-2023 Bilirubin Ql (U) Negative Negative [facility] Bilirubin.direct [Mass/volum e] in Serum or PlasmaOrdered By: Jeramy Cunningham on 07-31-2023 Bilirubin.direct [Mass/Vol] 0.10 mg/dL 0.03-0.18 [facility] Bilirubin.total [Mass/volume ] in Serum or PlasmaOrdered By: Jeramy Cunningham on 07-31-2023 Bilirubin [Mass/Vol] 0.4 mg/dL Normal 0.3-1.0 [facility] Comment on above: Performed By: #### A CORY, [place], CUU #### [address] abdomen pelvis w conon CT abdomen pelvis w con [facility] [place] [address] [place] [address] CT Scan Report Signed Patient: Abbey Garcia MR#: [id number] : 1990 Acct:[id number] Age/Sex: 33 / F ADM Date: 07/31/23 Loc: ER Room: Type: [facility] ER Attending Dr: Copies to: Jeramy [...] Jason Palomo M.D.07/31/2023 12:28 PM Dictation Location: [place] [address] Transcribed By: [facility] 07/31/23 1228 Dictated By: Jason Palomo DO 07/31/23 1223 Signed By: 07/31/23 1228 Normal [facility] Calcium [Mass/volume] in Ser um or PlasmaOrdered By: Jeramy Cunningham on 07-31-2023 Calcium [Mass/Vol] 8.5 mg/dL Low 8.6-10.3 [facility] Comment on above: Performed By: #### H EPATIC, MG, LIPASE, CMP, CBC #### [facility] [address] [place] [address] [place] Carbon dioxide, total [Moles /volume] in Serum or PlasmaOrdered By: Jeramy Cunningham on 07-31-2023 CO2 [Moles/Vol] 26.1 mmol/L Normal 21.0-31.0 [facility] Comment on above: Performed By: #### H EPATIC, MG, LIPASE, CMP, CBC #### [facility] [address] [place] [address] [place] Chloride [Moles/volume] in [place] or PlasmaOrdered By: Jeramy Cunningham on 07-31-2023 Chloride [Moles/Vol] 107 mmol/L Normal 98-107 [facility] Comment on above: Performed By: #### H EPATIC, MG, LIPASE, CMP, CBC #### [facility] [address] [place] [address] [place] Color of Urine by AutoOrdere d By: Jeramy Cunningham on 07-31-2023 Color (U) Colorless Normal Yellow [facility] Comment on above: Order Comment: Name Collection Type:: Clean-Voided Midstream Performed By: #### H EPATIC, MG, LIPASE, CMP, CBC #### [address] Complete Blood Count Auto Di ffon 07-31-2023 Mean Corpuscular HGB Conc 33.8 g/dL Normal 32.0-35.0 [facility] Comment on above: Performed By: #### A DDONUAPLUS, UHCG, CUU #### [address] Monocytes/100 WBC (Bld) 14.62 % Normal 0.00-20.00 [facility] Comment on above: Performed By: #### A DDONUAPLUS, UHCG, CUU #### [address] NRBC% 0.1 /100{WBC} Normal 0-0.5 [facility] Comment on above: Performed By: #### A DDONUAPLUS, UHCG, CUU #### [address] Creatinine [Mass/volume] in Serum or PlasmaOrdered By: Jeramy Cunningham on 07-31-2023 Creatinine [Mass/Vol] 0.70 mg/dL Normal 0.60-1.20 [facility] Comment on above: Performed By: #### H EPATIC, MG, LIPASE, CMP, CBC #### [address] Erythrocyte distribution wid th [Ratio] by Automated countOrdered By: Jeramy Cunningham on 07-31-2023 Erythrocyte distribution width (RBC) [Ratio] 14.2 % Normal 11.9-15.3 [facility] Comment on above: Performed By: #### A DDONUAPLUS, UHCG, CUU #### [address] Erythrocytes [#/volume] in B lood by Automated countOrdered By: Jeramy Cunningham on 07-31-2023 RBC (Bld) [#/Vol] 3.75 10*6/uL Normal 3.60-5.00 [facility] Comment on above: Performed By: #### A DDFAIZAUAJESSICA, UHCG, CUU #### [facility] [address] [place] [address] [place] Glucose [Mass/volume] in Ser um or PlasmaOrdered By: Jeramy Cunningham on 07-31-2023 Glucose [Mass/Vol] 91 mg/dL Normal 70-100 [facility] Comment on above: ADA recommended refe rence rangeRandom Glucose Reference Range is dependent on time and content of last meal. Glucose of more than 200 mg/dL in a nonstressed, ambulatory subject supports the diagnosis of Diabetes Mellitus. Result Comment: [place] om Glucose Reference Range is dependent on time and content of last meal. Glucose of more than 200 mg/dL in a nonstressed, ambulatory subject supports the diagnosis of Diabetes Mellitus. ADA recommended reference range Performed By: #### H EPATIC, MG, LIPASE, CMP, CBC #### [facility] [address] [place] [address] [place] Glucose [Mass/volume] in Uri ne by Test stripOrdered By: Jeramy Cunningham on 07-31-2023 Glucose Test strip (U) [Mass/Vol] Normal mg/dL Normal [facility] HCG ( test) IA.rapi d Ql (U)Ordered By: Jeramy Cunningham on 07-31-2023 HCG ( test) Ql (U) Negative [facility] HCG,Urineon 07-31-2023 Beta HCG ( test) Ql (U) Negative Normal [facility] Comment on above: Order Comment: Name Collection Type:: Clean-Voided Midstream Result Comment: PERF ORMED BY: [place] [address] PATHOLOGIST [employer] BAUTISTA BAKER M.D. Performed By: #### H EPATIC, MG, LIPASE, CMP, CBC #### [facility] [address] [place] [id number] [place] Hematocrit [Volume Fraction] of Blood by Automated countOrdered By: Jeramy Cunningham on 07-31-2023 Hematocrit (Bld) [Volume fraction] 33.2 % Low 34.0-46.4 [facility] Comment on above: Performed By: #### A ALIYAH RAYG, CUU #### [address] Hemoglobin Test strip Ql (U) Ordered By: Jeramy Cunningham on 07-31-2023 Hemoglobin Ql (U) Negative Negative [facility] Hemoglobin [Mass/volume] in BloodOrdered By: Jeramy Cunningham on 07-31-2023 Hemoglobin (Bld) [Mass/Vol] 11.2 g/dL Low 11.8-15.4 [facility] Comment on above: Performed By: #### A DDONUABRITTANIE LOPEZCG, CUU #### [address] Hepatic Panelon 07-31-2023 Albumin [Mass/Vol] 4.0 g/dL Normal 3.5-5.7 [facility] Comment on above: Performed By: #### A DDONUAJESSICA, BRITTANIECG, CUU #### [address] Bilirubin,Indirect 0.3 mg/dL Normal [facility] Comment on above: Performed By: #### A DDONUAJESSICA, BRITTANIECG, CUU #### [address] Bilirubin.indirect [Mass/Vol] 0.10 mg/dL Normal 0.03-0.18 [facility] Comment on above: Performed By: #### A DDONUAJESSICA, BRITTANIECG, CUU #### [address] INR in Platelet poor plasma by Coagulation assayOrdered By: Jeramy Cunningham on 07-31-2023 INR Coag (PPP) [Relative time] 1.1 {INR} Normal [facility] Comment on above: INR Therapeutic Rang e [...] H EPATIC, MG, LIPASE, CMP, CBC #### [facility] [address] [place] [address] [place] Ketones [Presence] in Urine by Test stripOrdered By: Jeramy Cunningham on 07-31-2023 Ketones Ql (U) Negative Normal Negative [facility] Comment on above: Order Comment: Name Collection Type:: Clean-Voided Midstream Performed By: #### H EPATIC, MG, LIPASE, CMP, CBC #### [facility] [address] [place] [address] [place] Leukocyte esterase [Presence ] in Urine by Test stripOrdered By: Jeramy Cunningham on 07-31-2023 Leukocyte esterase Test strip Ql (U) Negative Normal Negative [facility] Comment on above: Order Comment: Name Collection Type:: Clean-Voided Midstream Performed By: #### H EPATIC, MG, LIPASE, CMP, CBC #### [facility] [address] [place] [address] [place] Leukocytes [#/volume] correc darvin for nucleated erythrocytes in Blood by Automated counOrdered By: Jeramy Cunningham on 07-31-2023 WBC corrected for nucl RBC Auto (Bld) [#/Vol] 7.7 10*3/uL 3.8-11.6 [facility] Leukocytes [#/volume] in Blo od by Automated countOrdered By: Jeramy Cunningham on 07-31-2023 WBC (Bld) [#/Vol] 7.7 10*3/uL Normal 3.8-11.6 [facility] Comment on above: Performed By: #### [facility] #### [address] Lipase [Enzymatic activity/v olume] in Serum or PlasmaOrdered By: Jeramy Cunningham on 07-31-2023 Lipase [Catalytic activity/Vol] 36.0 U/L Normal 11.0-82.0 [facility] Comment on above: Result Comment: PERF ORMED BY: [place] [address] PATHOLOGIST [employer]ISH[employer] BAUTISTA BAKER M.D. Performed By: #### H EPATIC, MG, LIPASE, CMP, CBC #### [address] Lymphocytes [#/volume] in Bl ood by Automated countOrdered By: Jeramy Cunningham on 07-31-2023 Lymphocytes (Bld) [#/Vol] 0.9 10*3/uL Low 1.00-4.8 [facility] Comment on above: Performed By: #### [facility], [facility], [facility]U #### [address] Lymphocytes/100 leukocytes i n Blood by Automated countOrdered By: Jeramy Cunningham on 07-31-2023 Lymphocytes/100 WBC (Bld) 11.2 % Normal . [facility] Comment on above: Performed By: #### A CORY ELIS, CUU #### [address] MCH [Entitic mass] by Automa darvin countOrdered By: Jeramy Cunningham on 07-31-2023 MCH (RBC) [Entitic mass] 29.9 pg Normal 24.7-34.3 [facility] Comment on above: Performed By: #### A ALIYAH RAYG, CUU #### [address] MCHC Auto (RBC) [Mass/Vol]Or dered By: Jeramy Cunningham on 07-31-2023 MCHC (RBC) [Mass/Vol] 33.8 g/dL 32.0-35.0 [facility] MCV [Entitic volume] by Auto mated countOrdered By: Jeramy Cunningham on 07-31-2023 MCV (RBC) [Entitic vol] 88.6 fL Normal 80-100 [facility] Comment on above: Performed By: #### [facility] #### [facility] [address] [place] [address] [place] Monocyte distribution width [Entitic volume] in Blood by AutomatedOrdered By: Jeramy Cunningham on 07-31-2023 Monocyte distribution width Auto (Bld) [Entitic vol] 14.62 % 0.00-20.00 [facility] Neutrophils [#/volume] in Bl ood by Automated countOrdered By: Jeramy Cunningham on 07-31-2023 Neutrophils (Bld) [#/Vol] 6.5 10*3/uL Normal 1.8-7.7 [facility] Comment on above: Performed By: #### [facility] #### [facility] [address] [place] [address] Nitrite Test strip Ql (U)Ord ered By: Jeramy Cunningham on 07-31-2023 Nitrite Ql (U) Negative Negative [facility] No Panel InformationOrdered By: Jeramy Cunningham on 07-31-2023 Estimated GFR (CKD-EPI) > 60.0 mL/Min [facility] Creatinine Clearance (Chem 120.10 [facility] Nucleated erythrocytes [Pres ence] in Blood by Automated countOrdered By: Jeramy Cunningham on 07-31-2023 Nucleated RBC Auto Ql (Bld) 0.1 /100{WBC} 0-0.5 [facility] Partial Thromboplastin Timeo n 07-31-2023 aPTT Coag (Bld) [Time] 27.0 s Normal 25.1-36.5 [facility] Comment on above: Result Comment: A he matocrit value greater than 55% may lead to inaccurate results in coagulation testing. Patients having hematocrit values >55% require a special collection tube for coagulation studies. Please contact the laboratory at [phone] for redraw instructions. PERFORMED BY: [place] [address] PATHOLOGIST [employer]ISH[employer] BAUTISTA BAKER M.D. Performed By: #### H EPATIC, MG, LIPASE, CMP, CBC #### [address] Platelet mean volume [Entiti c volume] in Blood by Automated countOrdered By: Jeramy Cunningham on 07-31-2023 Platelet mean volume (Bld) [Entitic vol] 8.5 fL Normal 6.3-10.7 [facility] Comment on above: Performed By: #### A DDONUAJESSICA, CG, CUU #### [address] Platelets [#/volume] in Bloo d by Automated countOrdered By: Jeramy Cunningham on 07-31-2023 Platelets (Bld) [#/Vol] 276 10*3/uL Normal 150-450 [facility] Comment on above: Performed By: #### A DDONUAPLUS, BRITTANIECG, CUU #### [place] [address] [place] Potassium [Moles/volume] in Serum or PlasmaOrdered By: Jeramy Cunningham on 07-31-2023 Potassium [Moles/Vol] 3.8 mmol/L Normal 3.5-5.1 [facility] Comment on above: Performed By: #### H EPATIC, MG, LIPASE, CMP, CBC #### [place] [address] [place] Protein Test strip (U) [Mass /Vol]Ordered By: Jeramy Cunningham on 07-31-2023 Protein (U) [Mass/Vol] Negative Negative [facility] Protein [Mass/volume] in Ser um or PlasmaOrdered By: Jeramy Cunningham on 07-31-2023 Protein [Mass/Vol] 6.7 g/dL Normal 6.4-8.9 [facility] Comment on above: Performed By: #### A DDONUAPLUS, UHCG, CUU #### [address] Prothrombin time (PT)Ordered By: Jeramy Cunningham on 07-31-2023 PT Coag (PPP) [Time] 12.3 s Normal 9.0-12.9 [facility] Comment on above: A hematocrit value g reater than 55% may lead to inaccurate results in coagulation testing. Patients having hematocrit values >55% require a special collection tube for coagulation studies. Please contact the laboratory at [phone] for redraw instructions. Result Comment: A he matocrit value greater than 55% may lead to inaccurate results in coagulation testing. Patients having hematocrit values >55% require a special collection tube for coagulation studies. Please contact the laboratory at [phone] for redraw instructions. Performed By: #### H EPATIC, MG, LIPASE, CMP, CBC #### [address] Serum globulin measurement b y calculation (mass/volume)Ordered By: Jeramy Cunningham on 07-31-2023 Globulin (S) [Mass/Vol] 2.7 g/dL Normal [facility] Comment on above: Performed By: #### A CORY, [facility] [place], CUU #### [address] Serum or plasma albumin/glob ulin mass ratioOrdered By: Jeramy Cunningham on 07-31-2023 Albumin/Globulin [Mass ratio] 1.5 {ratio} [facility] Comment on above: Performed By: #### A CORY, [facility] [place], CUU #### [address] Serum or plasma anion gap de terminationOrdered By: Jeramy Cunningham on 07-31-2023 Anion gap [Moles/Vol] 10.7 mmol/L Normal 6.0-15.0 [facility] Comment on above: Performed By: #### H EPATIC, MG, LIPASE, CMP, CBC #### [address] Serum or plasma non-glucuron idated bilirubin measurement (mass/volume)Ordered By: Jeramy Cunningham on 07-31-2023 Bilirubin.indirect [Mass/Vol] 0.3 mg/dL [facility] Sodium [Moles/volume] in Ser um or PlasmaOrdered By: Jeramy Cunningham on 07-31-2023 Sodium [Moles/Vol] 140 mmol/L Normal 136-145 [facility] Comment on above: Performed By: #### H EPATIC, MG, LIPASE, CMP, CBC #### [facility] [address] Specific gravity Test strip (U) [Rel density]Ordered By: Jeramy Cunningham on 07-31-2023 Specific gravity (U) [Rel density] 1.006 1.001-1.030 [facility] Urea nitrogen [Mass/volume] in Serum or PlasmaOrdered By: Jeramy Cunningham on 07-31-2023 Urea nitrogen [Mass/Vol] 16 mg/dL Normal 7-25 [facility] Comment on above: Performed By: #### H EPATIC, MG, LIPASE, CMP, CBC #### [facility] [address] Urinalysison 07-31-2023 Bilirubin,Urine Negative Normal Negative [facility] Comment on above: Order Comment: Name Collection Type:: Clean-Voided Midstream Performed By: #### H EPATIC, MG, LIPASE, CMP, CBC #### [address] Glucose Ql (U) Normal Normal Normal [facility] Comment on above: Order Comment: Name Collection Type:: Clean-Voided Midstream Performed By: #### H EPATIC, MG, LIPASE, CMP, CBC #### [facility] [address] [place] [address] [place] Nitrite,Urine Negative Normal Negative [facility] Comment on above: Order Comment: Name Collection Type:: Clean-Voided Midstream Performed By: #### H EPATIC, MG, LIPASE, CMP, CBC #### [facility] [address] Occult Blood,Urine Negative Normal Negative [facility] Comment on above: Order Comment: Name Collection Type:: Clean-Voided Midstream Performed By: #### H EPATIC, MG, LIPASE, CMP, CBC #### [address] Protein,Urine Negative Normal Negative [facility] Comment on above: Order Comment: Name Collection Type:: Clean-Voided Midstream Performed By: #### H EPATIC, MG, LIPASE, CMP, CBC #### [address] Specificy [place],Urine 1.006 Normal 1.001-1.030 [facility] Comment on above: Order Comment: Name Collection Type:: Clean-Voided Midstream Performed By: #### H EPATIC, MG, LIPASE, CMP, CBC #### [address] Urobilinogen,Urine Normal Normal Normal [facility] Comment on above: Order Comment: Name Collection Type:: Clean-Voided Midstream Performed By: #### H EPATIC, MG, LIPASE, CMP, CBC #### [address] Urine appearanceOrdered By: Jeramy Cunningham on 07-31-2023 Appearance (U) Clear Normal Clear [facility] Comment on above: Order Comment: Name Collection Type:: Clean-Voided Midstream Performed By: #### H EPATIC, MG, LIPASE, CMP, CBC #### [address] Urobilinogen Test strip (U) [Mass/Vol]Ordered By: Jeramy Cunningham on 07-31-2023 Urobilinogen (U) [Mass/Vol] Normal mg/dL Normal [facility] pH of Urine by Test stripOrd ered By: Jeramy Cunningham on 07-31-2023 pH (U) 8.0 [pH] Normal 5.0-9.0 [facility] Comment on above: Order Comment: Name Collection Type:: Clean-Voided Midstream Performed By: #### H EPATIC, MG, LIPASE, CMP, CBC #### [facility] [address] CBC W Auto Differential pane l (Bld)on 07-30-2023 Basophils (Bld) [#/Vol] 0.04 10*3/uL Normal <0.11 [facility] Comment on above: Order Comment: Speci men Type: BLOOD SPECIMENOrdering Facility: [facility] Address: [address] [place] [address] Performed By: #### 5 7021-8 ####[facility] LABCLIA [id number] [place] [address] [place] Basophils/100 WBC (Bld) 0.4 % Normal [facility] Comment on above: Order Comment: Speci men Type: BLOOD SPECIMENOrdering Facility: [facility] Address: [address] [place] [address] Performed By: #### 5 7021-8 ####[facility] LABCLIA [id number] [place] [address] [place] Differential cell count method Nom (Bld) Auto Normal [facility] Comment on above: Order Comment: Speci men Type: BLOOD SPECIMENOrdering Facility: [facility] Address: [address] [place] [address] Performed By: #### 5 7021-8 ####[facility] LABCLIA [id number] [place] [address] [place] Eosinophils (Bld) [#/Vol] 0.05 10*3/uL Normal <0.46 [facility] Comment on above: Order Comment: Speci men Type: BLOOD SPECIMENOrdering Facility: [facility] Address: [address] [place] [address] Performed By: #### 5 7021-8 ####[facility] LABCLIA [id number] [place] [address] [place] Eosinophils/100 WBC (Bld) 0.5 % Normal [facility] Comment on above: Order Comment: Speci men Type: BLOOD SPECIMENOrdering Facility: [facility] Address: [address] [place] [address] Performed By: #### 5 7021-8 ####[facility] LABIA [id number] [place] [address] [place] Erythrocyte distribution width (RBC) [Ratio] 13.0 % Normal 11.5-15.0 [facility] Comment on above: Order Comment: Speci men Type: BLOOD SPECIMENOrdering Facility: [facility] Address: [address] [place] [address] Performed By: #### 5 7021-8 ####[facility] LABIA [id number] [place] [address] [place] Hematocrit (Bld) [Volume fraction] 33.7 % Low 36.0-46.0 [facility] Comment on above: Order Comment: Speci men Type: BLOOD SPECIMENOrdering Facility: [facility] Address: [address] [place] [address] Performed By: #### 5 7021-8 ####[facility] LABIA [id number] [place] [address] [place] Hemoglobin (Bld) [Mass/Vol] 11.1 g/dL Low 11.5-15.5 [facility] Comment on above: Order Comment: Speci men Type: BLOOD SPECIMENOrdering Facility: [facility] Address: [address] [place] [address] Performed By: #### 5 7021-8 ####[facility] LABIA [id number] [place] [address] [place] Immature granulocytes (Bld) [#/Vol] 0.03 10*3/uL Normal <0.10 [facility] Comment on above: Order Comment: Speci men Type: BLOOD SPECIMENOrdering Facility: [facility] Address: [address] [place] [address] Performed By: #### 5 7021-8 ####[facility] LABCLIA [id number] [place] [address] [place] Immature granulocytes/100 WBC (Bld) 0.3 % Normal [facility] Comment on above: Order Comment: Speci men Type: BLOOD SPECIMENOrdering Facility: [facility] Address: [address] [place] [address] Performed By: #### 5 7021-8 ####[facility] LABCLIA [id number] [place] [address] [place] Lymphocytes (Bld) [#/Vol] 2.10 10*3/uL Normal 1.00-4.00 [facility] Comment on above: Order Comment: Speci men Type: BLOOD SPECIMENOrdering Facility: [facility] Address: [address] [place] [address] Performed By: #### 5 7021-8 ####[facility] LABCLIA [id number] [place] [address] [place] Lymphocytes/100 WBC (Bld) 22.0 % Normal [facility] Comment on above: Order Comment: Speci men Type: BLOOD SPECIMENOrdering Facility: [facility] Address: [address] [place] [address] Performed By: #### 5 7021-8 ####[facility] LABCLIA [id number] [place] [address] [place] MCH (RBC) [Entitic mass] 29.8 pg Normal 26.0-34.0 [facility] Comment on above: Order Comment: Speci men Type: BLOOD SPECIMENOrdering Facility: [facility] Address: [address] [place] [address] Performed By: #### 5 7021-8 ####[facility] LABCLIA [id number] [place] [address] [place] MCHC (RBC) [Mass/Vol] 32.9 g/dL Normal 30.5-36.0 [facility] Comment on above: Order Comment: Speci men Type: BLOOD SPECIMENOrdering Facility: [facility] Address: [address] [place] [address] Performed By: #### 5 7021-8 ####[facility] LABIA [id number] [place] [address] [place] MCV (RBC) [Entitic vol] 90.3 fL Normal 80.0-100.0 [facility] Comment on above: Order Comment: Speci men Type: BLOOD SPECIMENOrdering Facility: [facility] Address: [address] [place] [address] Performed By: #### 5 7021-8 ####[facility] LABIA [id number] [place] [address] [place] Monocytes (Bld) [#/Vol] 0.57 10*3/uL Normal <0.87 [facility] Comment on above: Order Comment: Speci men Type: BLOOD SPECIMENOrdering Facility: [facility] Address: [address] [place] [address] Performed By: #### 5 7021-8 ####[facility] LABIA [id number] [place] [address] [place] Monocytes/100 WBC (Bld) 6.0 % Normal [facility] Comment on above: Order Comment: Speci men Type: BLOOD SPECIMENOrdering Facility: [facility] Address: [address] [place] [address] Performed By: #### 5 7021-8 ####[facility] LABIA [id number] [place] [address] [place] Neutrophils (Bld) [#/Vol] 6.74 10*3/uL Normal 1.45-7.50 [facility] Comment on above: Order Comment: Speci men Type: BLOOD SPECIMENOrdering Facility: [facility] Address: [address] [place] [address] Performed By: #### 5 7021-8 ####[facility] LABCLIA [id number] [place] [address] [place] Neutrophils/100 WBC (Bld) 70.8 % Normal [facility] Comment on above: Order Comment: Speci men Type: BLOOD SPECIMENOrdering Facility: [facility] Address: [address] [place] [address] Performed By: #### 5 7021-8 ####[facility] LABCLIA [id number] [place] [address] [place] Nucleated RBC (Bld) [#/Vol] 10*3/uL Normal <0.01 [facility] Comment on above: Order Comment: Speci men Type: BLOOD SPECIMENOrdering Facility: [facility] Address: [address] [place] [address] Performed By: #### 5 7021-8 ####[facility] LABIA [id number] [place] [address] [place] Nucleated RBC/100 WBC (Bld) [Ratio] 0.0 /100 WBC Normal [facility] Comment on above: Order Comment: Speci men Type: BLOOD SPECIMENOrdering Facility: [facility] Address: [address] [place] [address] Performed By: #### 5 7021-8 ####[facility] LABIA [id number] [place] [address] [place] Platelet mean volume (Bld) [Entitic vol] 10.3 fL Normal 9.0-12.7 [facility] Comment on above: Order Comment: Speci men Type: BLOOD SPECIMENOrdering Facility: [facility] [facility] Address: [address] [place] [address] Performed By: #### 5 7021-8 ####[facility] LABIA [id number] [place] [address] [place] Platelets (Bld) [#/Vol] 258 10*3/uL Normal 150-400 [facility] Comment on above: Order Comment: Speci men Type: BLOOD SPECIMENOrdering Facility: [facility] Address: [address] [place] [address] Performed By: #### 5 7021-8 ####[facility] LABCLIA [id number] [address] [address] [place] RBC (Bld) [#/Vol] 3.73 10*6/uL Low 3.90-5.20 [facility] Comment on above: Order Comment: Speci men Type: BLOOD SPECIMENOrdering Facility: [facility] Address: [address] [place] [address] Performed By: #### 5 7021-8 ####[facility] LABCLIA [id number] [place] [address] [place] WBC (Bld) [#/Vol] 9.53 10*3/uL Normal 3.70-11.00 [facility] Comment on above: Order Comment: Speci men Type: BLOOD SPECIMENOrdering Facility: [facility] Address: [address] [place] [address] Performed By: #### 5 7021-8 ####[facility] LABCLIA [id number] [place] [address] [place] Comprehensive metabolic 2000 panelon 07-30-2023 Albumin [Mass/Vol] 4.0 g/dL Normal 3.9-4.9 [facility] Comment on above: Order Comment: Speci men Type: BLOOD SPECIMENOrdering Facility: [facility] Address: [address] [place] [address] Performed By: #### 2 4323-8 ####[facility] LABCLIA [id number] [place] [id number] [place] ALP [Catalytic activity/Vol] 64 U/L Normal 34-123 [facility] Comment on above: Order Comment: Speci men Type: BLOOD SPECIMENOrdering Facility: [facility] Address: [address] [place] [id number] Performed By: #### 2 4323-8 ####[facility] LABCLIA [id number] [place] [address] [place] ALT [Catalytic activity/Vol] 30 U/L Normal 7-38 [facility] Comment on above: Order Comment: Speci men Type: BLOOD SPECIMENOrdering Facility: [facility] Address: [address] [place] [address] Performed By: #### 2 4323-8 ####[facility] LABCLIA [id number] [place] [address] [place] Anion gap [Moles/Vol] 12 mmol/L Normal 8-15 [facility] Comment on above: Order Comment: Speci men Type: BLOOD SPECIMENOrdering Facility: [facility] Address: [address] [place] [address] Performed By: #### 2 4323-8 ####[facility] LABCLIA [id number] [place] [address] [place] AST [Catalytic activity/Vol] 30 U/L Normal 13-35 [facility] Comment on above: Order Comment: Speci men Type: BLOOD SPECIMENOrdering Facility: [facility] Address: [address] [place] [id number] Performed By: #### 2 4323-8 ####[facility] LABCLIA [id number] [place] [id number] [place] Bilirubin [Mass/Vol] 0.2 mg/dL Normal 0.2-1.3 [facility] Comment on above: Order Comment: Speci men Type: BLOOD SPECIMENOrdering Facility: [facility] Address: [address] [place] [id number] Performed By: #### 2 4323-8 ####[facility] LABCLIA [id number] [address] [id number] [address] [place] Calcium [Mass/Vol] 8.7 mg/dL Normal 8.5-10.2 [facility] Comment on above: Order Comment: Speci men Type: BLOOD SPECIMENOrdering Facility: [facility] Address: [address] [place] [address] Performed By: #### 2 4323-8 ####[facility] LABCLIA [id number] [place] [address] [place] Chloride [Moles/Vol] 105 mmol/L Normal 98-107 [facility] Comment on above: Order Comment: Speci men Type: BLOOD SPECIMENOrdering Facility: [facility] Address: [address] [place] [address] Performed By: #### 2 4323-8 ####[facility] LABCLIA [id number] [place] [address] [place] CO2 [Moles/Vol] 22 mmol/L Normal 22-30 [facility] Comment on above: Order Comment: Speci men Type: BLOOD SPECIMENOrdering Facility: [facility] Address: [address] [place] [address] Performed By: #### 2 4323-8 ####[facility] LABCLIA [id number] [place] [address] [place] Creatinine [Mass/Vol] 0.59 mg/dL Normal 0.58-0.96 [facility] Comment on above: Order Comment: Speci men Type: BLOOD SPECIMENOrdering Facility: [facility] Address: [address] [place] [address] Performed By: #### 2 4323-8 ####[facility] LABCLIA [id number] [place] [address] [place] Creatinine and Glomerular filtration rate.predicted panel (S/P/Bld) 121 mL/min/1.73m??? Normal >=60 [facility] Comment on above: Order Comment: Speci men Type: BLOOD SPECIMENOrdering Facility: [facility] Address: [address] [place] [address] Result Comment: Jessica mated Glomerular Filtration Rate [...] actual GFR. Performed By: #### 2 4323-8 ####[facility] LABCLIA [id number] [place] [address] [place] Glucose [Mass/Vol] 88 mg/dL Normal 74-99 [facility] Comment on above: Order Comment: Speci men Type: BLOOD SPECIMENOrdering Facility: [facility] Address: [address] [place] [address] Result Comment: The [place] Diabetes [employer] (ADA) provides guidance for cutoff [...] Standards of Medical Care in Diabetes 2016, [place] [employer]. Diabetes Care. 2016.39(Suppl 1). Performed By: #### 2 4323-8 ####[facility] LABCLIA [id number] [place] [id number] [place] Potassium [Moles/Vol] 4.0 mmol/L Normal 3.7-5.1 [facility] Comment on above: Order Comment: Speci men Type: BLOOD SPECIMENOrdering Facility: [facility] Address: [address] [place] [address] Performed By: #### 2 4323-8 ####[facility] LABCLIA [id number] [place] [address] [place] Protein [Mass/Vol] 6.5 g/dL Normal 6.3-8.0 [facility] Comment on above: Order Comment: Speci men Type: BLOOD SPECIMENOrdering Facility: [facility] Address: [address] [place] [address] Performed By: #### 2 4323-8 ####[facility] LABCLIA [id number] [place] [address] [place] Sodium [Moles/Vol] 139 mmol/L Normal 136-144 [facility] Comment on above: Order Comment: Speci men Type: BLOOD SPECIMENOrdering Facility: [facility] Address: [address] [place] [address] Performed By: #### 2 4323-8 ####[facility] LABCLIA [id number] [place] [address] [place] Urea nitrogen [Mass/Vol] 13 mg/dL Normal 7-21 [facility] Comment on above: Order Comment: Speci men Type: BLOOD SPECIMENOrdering Facility: [facility] Address: [address] [place] [address] Performed By: #### 2 4323-8 ####[facility] LABCLIA [id number] [place] [address] [place] Basic metabolic 2000 panelon 07-20-2023 Anion gap [Moles/Vol] 14 mmol/L Normal 9-18 [facility] Comment on above: Order Comment: Speci men Type: BLOOD SPECIMENOrdering Facility: [facility] Address: [address] [place] [address] Performed By: #### 2 777-1, 25517-2, 21719-2 ####[facility] [facility] [id number] [place] [id number] [place] Calcium [Mass/Vol] 8.9 mg/dL Normal 8.5-10.2 [facility] Comment on above: Order Comment: Speci men Type: BLOOD SPECIMENOrdering Facility: [facility] Address: [address] [place] [address] Performed By: #### 2 777-1, 74290-9, ####[facility] LABORATORYCLIA [id number] [place] [address] [place] Chloride [Moles/Vol] 110 mmol/L High 97-105 [facility] Comment on above: Order Comment: Speci men Type: BLOOD SPECIMENOrdering Facility: [facility] Address: [address] [place] [address] Performed By: #### 2 777-1, , ####[place] [facility] [id number] [place] [address] [place] CO2 [Moles/Vol] 19 mmol/L Low 22-30 [facility] Comment on above: Order Comment: Speci men Type: BLOOD SPECIMENOrdering Facility: [facility] Address: [address] [place] [address] Performed By: #### 2 777-1, , ####[facility] [facility] [id number] [place] [id number] [place] Creatinine [Mass/Vol] 0.76 mg/dL Normal 0.58-0.96 [facility] Comment on above: Order Comment: Speci men Type: BLOOD SPECIMENOrdering Facility: [facility] Address: [address] [place] [address] Performed By: #### 2 777-1, , ####[facility] [id number] [place] [id number] [place] Creatinine and Glomerular filtration rate.predicted panel (S/P/Bld) 106 mL/min/1.73m??? Normal >=60 [facility] Comment on above: Order Comment: Speci men Type: BLOOD SPECIMENOrdering Facility: [facility] Address: [address] [place] [address] Result Comment: Jessica mated Glomerular Filtration Rate [...] actual GFR. Performed By: #### 2 777-1, 80569-1, ####[facility] [facility] [id number] [place] [id number] [place] Glucose [Mass/Vol] 97 mg/dL Normal 74-99 [facility] Comment on above: Order Comment: Geraldo marrero Type: BLOOD SPECIMENOrdering Facility: [facility] Address: [address] [place] [address] Result Comment: The [place] Diabetes [employer] (ADA) provides guidance for cutoff [...] Standards of Medical Care in Diabetes 2016, [place] [employer]. Diabetes Care. 2016.39(Suppl 1). Performed By: #### 2 777-1, 63911-4, ####[facility] [facility]ORY[facility] [id number] [place] [id number] [place] Potassium [Moles/Vol] 4.0 mmol/L Normal 3.7-5.1 [facility] Comment on above: Order Comment: Geraldo marrero Type: BLOOD SPECIMENOrdering Facility: [facility] Address: [address] [place] [address] Performed By: #### 2 777-1, 68564-7, ####[facility] [facility] [id number] [place] [id number] [place] Sodium [Moles/Vol] 143 mmol/L Normal 136-144 [facility] Comment on above: Order Comment: Speci men Type: BLOOD SPECIMENOrdering Facility: [facility] Address: [address] [place] [address] Performed By: #### 2 777-1, 90754-9, 08668-7 ####[facility] [facility]ORY[facility] [id number] [place] [id number] [place] Urea nitrogen [Mass/Vol] 8 mg/dL Normal 7-21 [facility] Comment on above: Order Comment: Speci men Type: BLOOD SPECIMENOrdering Facility: [facility] Address: [address] [place] [address] Performed By: #### 2 777-1, 55529-6, ####[facility] [facility]ORYCL[facility] [id number] [place] [id number] [place] [facility] CASE MANAGEMon 07-20-2023 CASE MANAGEM Normal [facility] CBC W Auto Differential pane l (Bld)on 07-20-2023 Basophils (Bld) [#/Vol] 10*3/uL Normal <0.11 [facility] Comment on above: Order Comment: Speci men Type: BLOOD SPECIMENOrdering Facility: [facility] Address: [address] [place] [address] Performed By: #### 5 7021-8 ####[facility] LABORATORYCLIA [id number] [place] [id number] [place] Basophils/100 WBC (Bld) 0.4 % Normal [facility] Comment on above: Order Comment: Speci men Type: BLOOD SPECIMENOrdering Facility: [facility] Address: [address] [place] [address] Performed By: #### 5 7021-8 ####[place] [facility]ORY[facility] [id number] [place] [id number] [place] Differential cell count method Nom (Bld) Auto Normal [facility] Comment on above: Order Comment: Speci men Type: BLOOD SPECIMENOrdering Facility: [facility] Address: [address] [place] [address] Performed By: #### 5 7021-8 ####[facility] LABORATORYCLIA [id number] [place] [address] [place] Eosinophils (Bld) [#/Vol] 0.19 10*3/uL Normal <0.46 [facility] Comment on above: Order Comment: Speci men Type: BLOOD SPECIMENOrdering Facility: [facility] Address: [address] [place] [address] Performed By: #### 5 7021-8 ####[facility] LABORATORYCLIA [id number] [place] [address] [place] Eosinophils/100 WBC (Bld) 3.8 % Normal [facility] Comment on above: Order Comment: Speci men Type: BLOOD SPECIMENOrdering Facility: [facility] Address: [address] [place] [address] Performed By: #### 5 7021-8 ####[facility]ORY[facility] [id number] [place] [address] [place] Erythrocyte distribution width (RBC) [Ratio] 12.8 % Normal 11.5-15.0 [facility] Comment on above: Order Comment: Speci men Type: BLOOD SPECIMENOrdering Facility: [facility] Address: [address] [place] [address] Performed By: #### 5 7021-8 ####[facility]ORYCLIA [id number] [place] [address] [place] Hematocrit (Bld) [Volume fraction] 31.6 % Low 36.0-46.0 [facility] Comment on above: Order Comment: Speci men Type: BLOOD SPECIMENOrdering Facility: [facility] Address: [address] [place] [address] Performed By: #### 5 7021-8 ####[facility] LABORATORYCLIA [id number] [place] [address] [place] Hemoglobin (Bld) [Mass/Vol] 10.5 g/dL Low 11.5-15.5 [facility] Comment on above: Order Comment: Speci men Type: BLOOD SPECIMENOrdering Facility: [facility] Address: [address] [place] [address] Performed By: #### 5 7021-8 ####[facility]ATORYCLIA [id number] [place] [id number] [facility] Immature granulocytes (Bld) [#/Vol] 10*3/uL Normal <0.10 [facility] Comment on above: Order Comment: Speci men Type: BLOOD SPECIMENOrdering Facility: [facility] Address: [address] [place] [address] Performed By: #### 5 7021-8 ####[facility] LABORATORYCLIA [id number] [address] Immature granulocytes/100 WBC (Bld) 0.2 % Normal [facility] Comment on above: Order Comment: Speci men Type: BLOOD SPECIMENOrdering Facility: [facility] Address: [address] [place] [address] Performed By: #### 5 7021-8 ####[facility]ATORYCLIA [id number] [address] [place] Lymphocytes (Bld) [#/Vol] 0.99 10*3/uL Low 1.00-4.00 [facility] Comment on above: Order Comment: Speci men Type: BLOOD SPECIMENOrdering Facility: [facility] Address: [address] [place] [address] Performed By: #### 5 7021-8 ####[facility]ATORYCLIA [id number] [address] STATES [facility] Lymphocytes/100 WBC (Bld) 19.8 % Normal [facility] Comment on above: Order Comment: Speci men Type: BLOOD SPECIMENOrdering Facility: [facility] Address: [address] [place] [address] Performed By: #### 5 7021-8 ####[facility]ORYCLIA [id number] [place] [address] [place] MCH (RBC) [Entitic mass] 30.2 pg Normal 26.0-34.0 [facility] Comment on above: Order Comment: Speci men Type: BLOOD SPECIMENOrdering Facility: [facility] Address: [address] [place] [address] Performed By: #### 5 7021-8 ####[facility] LABORATORYCLIA [id number] [place] [id number] [place] MCHC (RBC) [Mass/Vol] 33.2 g/dL Normal 30.5-36.0 [facility] Comment on above: Order Comment: Speci men Type: BLOOD SPECIMENOrdering Facility: [facility] Address: [address] [place] [address] Performed By: #### 5 7021-8 ####[facility] LABORATORYCLIA [id number] [place] [address] [place] MCV (RBC) [Entitic vol] 90.8 fL Normal 80.0-100.0 [facility] Comment on above: Order Comment: Speci men Type: BLOOD SPECIMENOrdering Facility: [facility] Address: [address] [place] [address] Performed By: #### 5 7021-8 ####[facility] LABORATORYCLIA [id number] [place] [address] [place] Monocytes (Bld) [#/Vol] 0.32 10*3/uL Normal <0.87 [facility] Comment on above: Order Comment: Speci men Type: BLOOD SPECIMENOrdering Facility: [facility] Address: [address] [place] [address] Performed By: #### 5 7021-8 ####[facility]ATORYCLIA [id number] [address] [place] Monocytes/100 WBC (Bld) 6.4 % Normal [facility] Comment on above: Order Comment: Speci men Type: BLOOD SPECIMENOrdering Facility: [facility] Address: [address] [place] [address] Performed By: #### 5 7021-8 ####[facility] LABORATORYCLIA [id number] [place] [address] [place] Neutrophils (Bld) [#/Vol] 3.47 10*3/uL Normal 1.45-7.50 [facility] Comment on above: Order Comment: Speci men Type: BLOOD SPECIMENOrdering Facility: [facility] Address: [address] [place] [address] Performed By: #### 5 7021-8 ####[facility]ATORYCLIA [id number] [place] [id number] [place] Neutrophils/100 WBC (Bld) 69.4 % Normal [facility] Comment on above: Order Comment: Speci men Type: BLOOD SPECIMENOrdering Facility: [facility] Address: [address] [place] [address] Performed By: #### 5 7021-8 ####[facility] LABORATORYCLIA [id number] [place] [address] [place] Nucleated RBC (Bld) [#/Vol] 10*3/uL Normal <0.01 [facility] Comment on above: Order Comment: Speci men Type: BLOOD SPECIMENOrdering Facility: [facility] Address: [address] [place] [address] Performed By: #### 5 7021-8 ####[facility] LABORATORYCLIA [id number] [place] [address] [place] Nucleated RBC/100 WBC (Bld) [Ratio] 0.0 /100 WBC Normal [facility] Comment on above: Order Comment: Speci men Type: BLOOD SPECIMENOrdering Facility: [facility] Address: [address] [place] [address] Performed By: #### 5 7021-8 ####[facility] LABORATORYCLIA [id number] [place] [address] [place] Platelet mean volume (Bld) [Entitic vol] 11.1 fL Normal 9.0-12.7 [facility] Comment on above: Order Comment: Speci men Type: BLOOD SPECIMENOrdering Facility: [facility] Address: [address] [place] [address] Performed By: #### 5 7021-8 ####[facility] LABORATORYCLIA [id number] [place] [address] [place] Platelets (Bld) [#/Vol] 225 10*3/uL Normal 150-400 [facility] Comment on above: Order Comment: Speci men Type: BLOOD SPECIMENOrdering Facility: [facility] Address: [address] [place] [address] Performed By: #### 5 7021-8 ####[facility] [facility] [id number] [place] [id number] [place] RBC (Bld) [#/Vol] 3.48 10*6/uL Low 3.90-5.20 [facility] Comment on above: Order Comment: Speci men Type: BLOOD SPECIMENOrdering Facility: [facility] Address: [address] [place] [address] Performed By: #### 5 7021-8 ####[facility] [facility]ORYCL[facility] [id number] [place] [address] [place] WBC (Bld) [#/Vol] 5.00 10*3/uL Normal 3.70-11.00 [facility] Comment on above: Order Comment: Speci men Type: BLOOD SPECIMENOrdering Facility: [facility] Address: [address] [place] [address] Performed By: #### 5 7021-8 ####[facility] [facility]ORYCL[facility] [id number] [place] [id number] [place] CNDSon 07-20-2023 CNDS Normal [facility] Magnesium SerPl-mCncon 07-19 Magnesium [Mass/Vol] 2.1 mg/dL Normal 1.7-2.3 [facility] Comment on above: Order Comment: Speci men Type: BLOOD SPECIMENOrdering Facility: [facility] Address: [address] [place] [address] Performed By: #### 2 777-1, 49767-3, 38110-3 ####[facility] [facility]ORYCL[facility] [id number] [place] [id number] [place] NURSING PROGon 07-20-2023 NURSING PROG Normal [facility] Phosphate SerPl-mCncon 07-19 Phosphate [Mass/Vol] 4.2 mg/dL Normal 2.7-4.8 [facility] Comment on above: Order Comment: Speci men Type: BLOOD SPECIMENOrdering Facility: [facility] Address: [address] [place] [address] Performed By: #### 2 777-1, 82815-5, ####[facility] LABORATORYCLIA [id number] [place] [id number] [place] Basic metabolic 2000 panelon 07-19-2023 Anion gap [Moles/Vol] 9 mmol/L Normal 9-18 [facility] Comment on above: Order Comment: Speci men Type: BLOOD SPECIMENOrdering Facility: [facility] Address: [address] [place] [address] Performed By: #### 2 777-1, 84451-1, ####[facility]ATORYCLIA [id number] [place] [id number] [place] Calcium [Mass/Vol] 8.7 mg/dL Normal 8.5-10.2 [facility] Comment on above: Order Comment: Speci men Type: BLOOD SPECIMENOrdering Facility: [facility] Address: [address] [place] [address] Performed By: #### 2 777-1, 31310-5, ####[facility] LABORATORYCLIA [id number] [place] [id number] [place] Chloride [Moles/Vol] 107 mmol/L High 97-105 [facility] Comment on above: Order Comment: Speci men Type: BLOOD SPECIMENOrdering Facility: [facility] Address: [address] [place] [address] Performed By: #### 2 777-1, 31272-3, ####[facility] LABORATORYCLIA [id number] [place] [id number] [place] CO2 [Moles/Vol] 23 mmol/L Normal 22-30 [facility] Comment on above: Order Comment: Speci men Type: BLOOD SPECIMENOrdering Facility: [facility] Address: [address] [place] [address] Performed By: #### 2 777-1, 29137-8, ####[facility] [facility]ORYCL[facility] [id number] [place] [id number] [place] [facility] Creatinine [Mass/Vol] 0.75 mg/dL Normal 0.58-0.96 [facility] Comment on above: Order Comment: Geraldo men Type: BLOOD SPECIMENOrdering Facility: [facility] Address: [address] [place] [address] Performed By: #### 2 777-1, 44248-3, ####[place] [facility]ORYCL[facility] [id number] [place] [id number] [facility] Creatinine and Glomerular filtration rate.predicted panel (S/P/Bld) 107 mL/min/1.73m??? Normal >=60 [facility] Comment on above: Order Comment: Geraldo marrero Type: BLOOD SPECIMENOrdering Facility: [facility] Address: [address] [place] [address] Result Comment: Jessica mated Glomerular Filtration Rate [...] actual GFR. Performed By: #### 2 777-1, 92893-7, ####[facility] [facility]ORYCLIA [id number] [place] [id number] [place] Glucose [Mass/Vol] 81 mg/dL Normal 74-99 [facility] Comment on above: Order Comment: Geraldo men Type: BLOOD SPECIMENOrdering Facility: [facility] Address: [address] [place] [address] Result Comment: The [place] [employer] (ADA) provides guidance for cutoff [...] Standards of Medical Care in Diabetes 2016, [place] [employer]. Diabetes Care. 2016.39(Suppl 1). Performed By: #### 2 777-1, 68993-5, ####[facility] [facility]ORYCLIA [id number] [place] [address] [place] Potassium [Moles/Vol] 3.9 mmol/L Normal 3.7-5.1 [facility] Comment on above: Order Comment: Geraldo marrero Type: BLOOD SPECIMENOrdering Facility: [facility] Address: [address] [place] [address] Performed By: #### 2 777-1, , ####[facility]ORYCL[facility] [id number] [place] [id number] [place] Sodium [Moles/Vol] 139 mmol/L Normal 136-144 [facility] Comment on above: Order Comment: Geraldo marrero Type: BLOOD SPECIMENOrdering Facility: [facility] Address: [address] [place], [place] [id number] Performed By: #### 2 777-1, , ####[facility]ORYCLIA [id number] [place] [id number] [place] Urea nitrogen [Mass/Vol] 6 mg/dL Low 7-21 [facility] Comment on above: Order Comment: Geraldo marrero Type: BLOOD SPECIMENOrdering Facility: [facility] Address: [address] [place] [address] Performed By: #### 2 777-1, , ####[place] [facility]ORATORYCLIA [id number] [place] [address] [place] CASE MGT INIT ASSESon 2023 CASE MGT INIT ASSES Normal [facility] CBC W Auto Differential pane l (Bld)on 07-19-2023 Basophils (Bld) [#/Vol] 0.04 10*3/uL Normal <0.11 [facility] Comment on above: Order Comment: Speci men Type: BLOOD SPECIMENOrdering Facility: [facility] Address: [address] [place] [address] Performed By: #### 5 7021-8 ####[facility] LABORATORYCLIA [id number] [place] [id number] [place] Basophils/100 WBC (Bld) 1.3 % Normal [facility] Comment on above: Order Comment: Speci men Type: BLOOD SPECIMENOrdering Facility: [facility] Address: [address] [place] [address] Performed By: #### 5 7021-8 ####[facility] LABORATORYCLIA [id number] [place] [address] [place] Differential cell count method Nom (Bld) Auto Normal [facility] Comment on above: Order Comment: Speci men Type: BLOOD SPECIMENOrdering Facility: [facility] Address: [address] [place] [address] Performed By: #### 5 7021-8 ####[facility] LABORATORYCLIA [id number] [place] [address] [place] Eosinophils (Bld) [#/Vol] 0.28 10*3/uL Normal <0.46 [facility] Comment on above: Order Comment: Speci men Type: BLOOD SPECIMENOrdering Facility: [facility] Address: [address] [place] [address] Performed By: #### 5 7021-8 ####[facility] LABORATORYCLIA [id number] [place] [id number] [place] Eosinophils/100 WBC (Bld) 9.1 % Normal [facility] Comment on above: Order Comment: Speci men Type: BLOOD SPECIMENOrdering Facility: [facility] Address: [address] [place] [address] Performed By: #### 5 7021-8 ####[facility] LABORATORYCLIA [id number] [place] [id number] [place] Erythrocyte distribution width (RBC) [Ratio] 12.6 % Normal 11.5-15.0 [facility] Comment on above: Order Comment: Speci men Type: BLOOD SPECIMENOrdering Facility: [facility] Address: [address] [place] [address] Performed By: #### 5 7021-8 ####[facility] LABORATORYCLIA [id number] [address] [place] Hematocrit (Bld) [Volume fraction] 29.7 % Low 36.0-46.0 [facility] Comment on above: Order Comment: Speci men Type: BLOOD SPECIMENOrdering Facility: [facility] Address: [address] [place] [address] Performed By: #### 5 7021-8 ####[facility] LABORATORYCLIA [id number] [place] [address] [place] Hemoglobin (Bld) [Mass/Vol] 10.0 g/dL Low 11.5-15.5 [facility] Comment on above: Order Comment: Speci men Type: BLOOD SPECIMENOrdering Facility: [facility] Address: [address] [place] [address] Performed By: #### 5 7021-8 ####[facility] LABORATORYCLIA [id number] [address] [place] Immature granulocytes (Bld) [#/Vol] 10*3/uL Normal <0.10 [facility] Comment on above: Order Comment: Speci men Type: BLOOD SPECIMENOrdering Facility: [facility] Address: [address] [place] [address] Performed By: #### 5 7021-8 ####[facility] LABORATORYCLIA [id number] [address] [place] Immature granulocytes/100 WBC (Bld) 0.3 % Normal [facility] Comment on above: Order Comment: Speci men Type: BLOOD SPECIMENOrdering Facility: [facility] Address: [address] [place] [address] Performed By: #### 5 7021-8 ####[facility] LABORATORYCLIA [id number] [place] [address] [place] Lymphocytes (Bld) [#/Vol] 1.18 10*3/uL Normal 1.00-4.00 [facility] Comment on above: Order Comment: Speci men Type: BLOOD SPECIMENOrdering Facility: [facility] Address: [address] [place] [address] Performed By: #### 5 7021-8 ####[facility] LABORATORYCLIA [id number] [address] Lymphocytes/100 WBC (Bld) 38.2 % Normal [facility] Comment on above: Order Comment: Speci men Type: BLOOD SPECIMENOrdering Facility: [facility] Address: [address] [place] [address] Performed By: #### 5 7021-8 ####[facility] LABORATORYCLIA [id number] [address] [place] [facility] MCH (RBC) [Entitic mass] 29.9 pg Normal 26.0-34.0 [facility] Comment on above: Order Comment: Speci men Type: BLOOD SPECIMENOrdering Facility: [facility] Address: [address] [place] [address] Performed By: #### 5 7021-8 ####[facility] LABORATORYCLIA [id number] [address] [place] MCHC (RBC) [Mass/Vol] 33.7 g/dL Normal 30.5-36.0 [facility] Comment on above: Order Comment: Speci men Type: BLOOD SPECIMENOrdering Facility: [facility] Address: [address] [place] [address] Performed By: #### 5 7021-8 ####[facility] LABORATORYCLIA [id number] [address] MCV (RBC) [Entitic vol] 88.9 fL Normal 80.0-100.0 [facility] Comment on above: Order Comment: Speci men Type: BLOOD SPECIMENOrdering Facility: [facility] Address: [address] [place] [address] Performed By: #### 5 7021-8 ####[facility] LABORATORYCLIA [id number] [place] [id number] [place] Monocytes (Bld) [#/Vol] 0.26 10*3/uL Normal <0.87 [facility] Comment on above: Order Comment: Speci men Type: BLOOD SPECIMENOrdering Facility: [facility] Address: [address] [place] [address] Performed By: #### 5 7021-8 ####[facility] LABORATORYCLIA [id number] [place] [id number] [place] Monocytes/100 WBC (Bld) 8.4 % Normal [facility] Comment on above: Order Comment: Speci men Type: BLOOD SPECIMENOrdering Facility: [facility] Address: [address] [place] [address] Performed By: #### 5 7021-8 ####[facility] LABORATORYCLIA [id number] [place] [address] [place] Neutrophils (Bld) [#/Vol] 1.32 10*3/uL Low 1.45-7.50 [facility] Comment on above: Order Comment: Speci men Type: BLOOD SPECIMENOrdering Facility: [facility] Address: [address] [place] [address] Performed By: #### 5 7021-8 ####[facility] LABORATORYCLIA [id number] [place] [address] [place] Neutrophils/100 WBC (Bld) 42.7 % Normal [facility] Comment on above: Order Comment: Speci men Type: BLOOD SPECIMENOrdering Facility: [facility] Address: [address] [place] [address] Performed By: #### 5 7021-8 ####[facility] LABORATORYCLIA [id number] [place] [address] [place] Nucleated RBC (Bld) [#/Vol] 10*3/uL Normal <0.01 [facility] Comment on above: Order Comment: Speci men Type: BLOOD SPECIMENOrdering Facility: [facility] Address: [address] [place] [address] Performed By: #### 5 7021-8 ####[facility] LABORATORYCLIA [id number] [place] [id number] [place] Nucleated RBC/100 WBC (Bld) [Ratio] 0.0 /100 WBC Normal [facility] Comment on above: Order Comment: Speci men Type: BLOOD SPECIMENOrdering Facility: [facility] Address: [address] [place] [address] Performed By: #### 5 7021-8 ####[facility] LABORATORYCLIA [id number] [place] [id number] [place] Platelet mean volume (Bld) [Entitic vol] 10.6 fL Normal 9.0-12.7 [facility] Comment on above: Order Comment: Speci men Type: BLOOD SPECIMENOrdering Facility: [facility] Address: [address] [place] [address] Performed By: #### 5 7021-8 ####[facility] LABORATORYCLIA [id number] [place] [address] [place] Platelets (Bld) [#/Vol] 210 10*3/uL Normal 150-400 [facility] Comment on above: Order Comment: Speci men Type: BLOOD SPECIMENOrdering Facility: [facility] Address: [address] [place] [address] Performed By: #### 5 7021-8 ####[facility] LABORATORYCLIA [id number] [place] [id number] [place] RBC (Bld) [#/Vol] 3.34 10*6/uL Low 3.90-5.20 [facility] Comment on above: Order Comment: Speci men Type: BLOOD SPECIMENOrdering Facility: [facility] Address: [address] [place] [address] Performed By: #### 5 7021-8 ####[facility] LABORATORYCLIA [id number] [place] [id number] [place] WBC (Bld) [#/Vol] 3.09 10*3/uL Low 3.70-11.00 [facility] Comment on above: Order Comment: Speci men Type: BLOOD SPECIMENOrdering Facility: [facility] Address: [address] [place] [address] Performed By: #### 5 7021-8 ####[facility] [facility]ORATORYCLIA [id number] [place] [address] [facility] [place] Magnesium SerPl-mCncon 07-18 Magnesium [Mass/Vol] 2.0 mg/dL Normal 1.7-2.3 [facility] Comment on above: Order Comment: Speci men Type: BLOOD SPECIMENOrdering Facility: [facility] Address: [address] [place] [address] Performed By: #### 2 777-1, 03809-9, ####[facility] [facility]ORATORYCLIA [id number] [place] [id number] [facility] [place] NUTRITIONon 07-19-2023 NUTRITION Normal [facility] Phosphate SerPl-mCncon 07-18 Phosphate [Mass/Vol] 4.3 mg/dL Normal 2.7-4.8 [facility] Comment on above: Order Comment: Speci men Type: BLOOD SPECIMENOrdering Facility: [facility] Address: [address] [place] [address] Performed By: #### 2 777-1, 53709-1, ####[facility] [facility]ATORYCLIA [id number] [place] [id number] [facility] [place] ALLIED HEALTHon 07-18-2023 ALLIED HEALTH Normal [facility] ALLIED HEALTH Normal [facility] Basic metabolic 2000 panelon 07-18-2023 Anion gap [Moles/Vol] 9 mmol/L Normal 9-18 [facility] Comment on above: Order Comment: Speci men Type: BLOOD SPECIMENOrdering Facility: [facility] Address: [address] [place] [address] Performed By: #### 2 777-1, 32685-1, ####[facility] [facility]ATORYCLIA [id number] [place] [address] [place] Calcium [Mass/Vol] 8.5 mg/dL Normal 8.5-10.2 [facility] Comment on above: Order Comment: Speci men Type: BLOOD SPECIMENOrdering Facility: [facility] Address: [address] [place] [address] Performed By: #### 2 777-1, 07115-2, ####[facility] [facility]ATORYCLIA [id number] [place] [id number] [place] Chloride [Moles/Vol] 108 mmol/L High 97-105 [facility] Comment on above: Order Comment: Speci men Type: BLOOD SPECIMENOrdering Facility: [facility] Address: [address] [place] [address] Performed By: #### 2 777-1, , ####[facility] [facility]ATORYCLIA [id number] [place] [id number] [place] CO2 [Moles/Vol] 22 mmol/L Normal 22-30 [facility] Comment on above: Order Comment: Speci men Type: BLOOD SPECIMENOrdering Facility: [facility] Address: [address] [place] [address] Performed By: #### 2 777-1, , ####[facility] [facility]ORATORYCLIA [id number] [place] [id number] [place] Creatinine [Mass/Vol] 0.76 mg/dL Normal 0.58-0.96 [facility] Comment on above: Order Comment: Speci men Type: BLOOD SPECIMENOrdering Facility: [facility] Address: [address] [place] [address] Performed By: #### 2 777-1, , ####[facility] [facility]ORATORYCLIA [id number] [place] [id number] [place] Creatinine and Glomerular filtration rate.predicted panel (S/P/Bld) 106 mL/min/1.73m??? Normal >=60 [facility] Comment on above: Order Comment: Speci men Type: BLOOD SPECIMENOrdering Facility: [facility] Address: [address] [place] [address] Result Comment: Jessica mated Glomerular Filtration Rate [...] actual GFR. Performed By: #### 2 777-1, 89472-7, ####[facility] [facility]ORATORYCLIA [id number] [place] [id number] [place] Glucose [Mass/Vol] 80 mg/dL Normal 74-99 [facility] Comment on above: Order Comment: Geraldo marrero Type: BLOOD SPECIMENOrdering Facility: [facility] Address: [address] [place] [address] Result Comment: The [place] [employer] (ADA) provides guidance for cutoff [...] Standards of Medical Care in Diabetes 2016, [place] [employer]. Diabetes Care. 2016.39(Suppl 1). Performed By: #### 2 777-1, 79155-1, ####[facility] [facility]ORATORYCLIA [id number] [place] [id number] [place] Potassium [Moles/Vol] 4.1 mmol/L Normal 3.7-5.1 [facility] Comment on above: Order Comment: Geraldo [facility] Type: BLOOD SPECIMENOrdering Facility: [facility] Address: [address] [place] [address] Performed By: #### 2 777-1, 36571-3, ####[facility] [facility]ORATORYCLIA [id number] [place] [id number] [place] Sodium [Moles/Vol] 139 mmol/L Normal 136-144 [facility] Comment on above: Order Comment: Speci men Type: BLOOD SPECIMENOrdering Facility: [facility] Address: [address] [place] [address] Performed By: #### 2 777-1, 63118-5, ####[facility] [facility]ORATORYCLIA [id number] [place] [id number] [place] Urea nitrogen [Mass/Vol] 7 mg/dL Normal 7-21 [facility] Comment on above: Order Comment: Speci men Type: BLOOD SPECIMENOrdering Facility: [facility] Address: [address] [place] [address] Performed By: #### 2 777-1, , ####[facility] [facility]ORATORYCLIA [id number] [place] [id number] [place] CBC W Auto Differential pane l (Bld)on 07-18-2023 Basophils (Bld) [#/Vol] 0.06 10*3/uL Normal <0.11 [facility] Comment on above: Order Comment: Speci men Type: BLOOD SPECIMENOrdering Facility: [facility] Address: [address] [place] [address] Performed By: #### 5 7021-8 ####[facility] [facility]ORATORYCLIA [id number] [place] [id number] [place] Basophils/100 WBC (Bld) 1.6 % Normal [facility] Comment on above: Order Comment: Speci men Type: BLOOD SPECIMENOrdering Facility: [facility] Address: [address] [place] [address] Performed By: #### 5 7021-8 ####[facility] [facility]ORATORYCLIA [id number] [place] [id number] [place] Differential cell count method Nom (Bld) Auto Normal [facility] Comment on above: Order Comment: Speci men Type: BLOOD SPECIMENOrdering Facility: [facility] Address: [address] [place] [address] Performed By: #### 5 7021-8 ####[facility] LABORATORYCLIA [id number] [address] [place] Eosinophils (Bld) [#/Vol] 0.33 10*3/uL Normal <0.46 [facility] Comment on above: Order Comment: Speci men Type: BLOOD SPECIMENOrdering Facility: [facility] Address: [address] [place] [address] Performed By: #### 5 7021-8 ####[facility] LABORATORYCLIA [id number] [address] Eosinophils/100 WBC (Bld) 8.8 % Normal [facility] Comment on above: Order Comment: Speci men Type: BLOOD SPECIMENOrdering Facility: [facility] Address: [address] [place] [address] Performed By: #### 5 7021-8 ####[facility] LABORATORYCLIA [id number] [address] Erythrocyte distribution width (RBC) [Ratio] 12.9 % Normal 11.5-15.0 [facility] Comment on above: Order Comment: Speci men Type: BLOOD SPECIMENOrdering Facility: [facility] Address: [address] [place] [address] Performed By: #### 5 7021-8 ####[facility] LABORATORYCLIA [id number] [place] [id number] [facility] [place] Hematocrit (Bld) [Volume fraction] 31.1 % Low 36.0-46.0 [facility] Comment on above: Order Comment: Speci men Type: BLOOD SPECIMENOrdering Facility: [facility] Address: [address] [place] [address] Performed By: #### 5 7021-8 ####[facility] LABORATORYCLIA [id number] [place] [address] [place] Hemoglobin (Bld) [Mass/Vol] 10.2 g/dL Low 11.5-15.5 [facility] Comment on above: Order Comment: Speci men Type: BLOOD SPECIMENOrdering Facility: [facility] Address: [address] [place] [address] Performed By: #### 5 7021-8 ####[facility] LABORATORYCLIA [id number] [address] [place] Immature granulocytes (Bld) [#/Vol] 10*3/uL Normal <0.10 [facility] Comment on above: Order Comment: Speci men Type: BLOOD SPECIMENOrdering Facility: [facility] Address: [address] [place] [address] Performed By: #### 5 7021-8 ####[facility]ORATORYCLIA [id number] [address] Immature granulocytes/100 WBC (Bld) 0.0 % Normal [facility] Comment on above: Order Comment: Speci men Type: BLOOD SPECIMENOrdering Facility: [facility] Address: [address] [place] [address] Performed By: #### 5 7021-8 ####[facility] LABORATORYCLIA [id number] [place] [address] [place] Lymphocytes (Bld) [#/Vol] 1.40 10*3/uL Normal 1.00-4.00 [facility] Comment on above: Order Comment: Speci men Type: BLOOD SPECIMENOrdering Facility: [facility] Address: [address] [place] [address] Performed By: #### 5 7021-8 ####[facility] LABORATORYCLIA [id number] [address] [place] Lymphocytes/100 WBC (Bld) 37.2 % Normal [facility] Comment on above: Order Comment: Speci men Type: BLOOD SPECIMENOrdering Facility: [facility] Address: [address] [place] [address] Performed By: #### 5 7021-8 ####[facility] LABORATORYCLIA [id number] [place] [address] [place] MCH (RBC) [Entitic mass] 30.4 pg Normal 26.0-34.0 [facility] Comment on above: Order Comment: Speci men Type: BLOOD SPECIMENOrdering Facility: [facility] Address: [address] [place] [address] Performed By: #### 5 7021-8 ####[facility] LABORATORYCLIA [id number] [place] [id number] [place] MCHC (RBC) [Mass/Vol] 32.8 g/dL Normal 30.5-36.0 [facility] Comment on above: Order Comment: Speci men Type: BLOOD SPECIMENOrdering Facility: [facility] Address: [address] [place] [address] Performed By: #### 5 7021-8 ####[facility] LABORATORYCLIA [id number] [address] [place] MCV (RBC) [Entitic vol] 92.6 fL Normal 80.0-100.0 [facility] Comment on above: Order Comment: Speci men Type: BLOOD SPECIMENOrdering Facility: [facility] Address: [address] [place] [address] Performed By: #### 5 7021-8 ####[facility] LABORATORYCLIA [id number] [place] [address] [place] Monocytes (Bld) [#/Vol] 0.42 10*3/uL Normal <0.87 [facility] Comment on above: Order Comment: Speci men Type: BLOOD SPECIMENOrdering Facility: [facility] Address: [address] [place] [address] Performed By: #### 5 7021-8 ####[facility] LABORATORYCLIA [id number] [place] [id number] [place] Monocytes/100 WBC (Bld) 11.2 % Normal [facility] Comment on above: Order Comment: Speci men Type: BLOOD SPECIMENOrdering Facility: [facility] Address: [address] [place] [address] Performed By: #### 5 7021-8 ####[facility] LABORATORYCLIA [id number] [place] [address] [place] Neutrophils (Bld) [#/Vol] 1.55 10*3/uL Normal 1.45-7.50 [facility] Comment on above: Order Comment: Speci men Type: BLOOD SPECIMENOrdering Facility: [facility] Address: [address] [place] [address] Performed By: #### 5 7021-8 ####[facility] LABORATORYCLIA [id number] [place] [address] [place] Neutrophils/100 WBC (Bld) 41.2 % Normal [facility] Comment on above: Order Comment: Speci men Type: BLOOD SPECIMENOrdering Facility: [facility] Address: [address] [place] [address] Performed By: #### 5 7021-8 ####[facility] LABORATORYCLIA [id number] [place] [address] [place] Nucleated RBC (Bld) [#/Vol] 10*3/uL Normal <0.01 [facility] Comment on above: Order Comment: Speci men Type: BLOOD SPECIMENOrdering Facility: [facility] Address: [address] [place] [address] Performed By: #### 5 7021-8 ####[facility] LABORATORYCLIA [id number] [place] [address] [place] Nucleated RBC/100 WBC (Bld) [Ratio] 0.0 /100 WBC Normal [facility] Comment on above: Order Comment: Speci men Type: BLOOD SPECIMENOrdering Facility: [facility] Address: [address] [place] [address] Performed By: #### 5 7021-8 ####[facility] LABORATORYCLIA [id number] [place] [id number] [place] Platelet mean volume (Bld) [Entitic vol] 11.0 fL Normal 9.0-12.7 [facility] Comment on above: Order Comment: Speci men Type: BLOOD SPECIMENOrdering Facility: [facility] Address: [address] [place] [address] Performed By: #### 5 7021-8 ####[facility] LABORATORYCLIA [id number] [place] [id number] [place] Platelets (Bld) [#/Vol] 212 10*3/uL Normal 150-400 [facility] Comment on above: Order Comment: Speci men Type: BLOOD SPECIMENOrdering Facility: [facility] Address: [address] [place] [address] Performed By: #### 5 7021-8 ####[facility]ATORYCLIA [id number] [place] [id number] [place] RBC (Bld) [#/Vol] 3.36 10*6/uL Low 3.90-5.20 [facility] Comment on above: Order Comment: Speci men Type: BLOOD SPECIMENOrdering Facility: [facility] Address: [address] [place] [address] Performed By: #### 5 7021-8 ####[facility]ATORYCLIA [id number] [place] [id number] [place] WBC (Bld) [#/Vol] 3.76 10*3/uL Normal 3.70-11.00 [facility] Comment on above: Order Comment: Speci men Type: BLOOD SPECIMENOrdering Facility: [facility] Address: [address] [place] [address] Performed By: #### 5 7021-8 ####[facility]ATORYCLIA [id number] [place] [id number] [place] Magnesium SerPl-mCncon 07-17 Magnesium [Mass/Vol] 1.9 mg/dL Normal 1.7-2.3 [facility] Comment on above: Order Comment: Speci men Type: BLOOD SPECIMENOrdering Facility: [facility] Address: [address] [place] [address] Performed By: #### 2 777-1, 12451-1, 90313-1 ####[facility] LABORATORYCLIA [id number] [place] [id number] [place] Phosphate SerPl-mCncon 06-02 -2024 Phosphate [Mass/Vol] 4.7 mg/dL Normal 2.7-4.8 [facility] Comment on above: Order Comment: Speci men Type: BLOOD SPECIMENOrdering Facility: [facility] Address: [address] [place] [address] Performed By: #### 2 777-1, 65405-8, 61934-9 ####[place] [facility]ORYCLIA [id number] [place] [address] [place] XR CHEST 1V FRONTAL PORTon 0 07-18-2023 XR CHEST 1V FRONTAL PORT Normal [facility] XR SMALL BOWEL SERIESon - XR SMALL BOWEL SERIES Normal [facility] Capillary blood glucose brie urement by glucometer (mass/volume)Ordered By: Camden Rodriguez on 07-17-2023 Glucose [Mass/Vol] 86 mg/dL Normal [facility] Comment on above: Random Glucose Refer ence Range is dependent on time and content of last meal. Glucose of more than 200 mg/dL in a nonstressed, ambulatory subject supports the diagnosis of Diabetes Mellitus. Result Comment: [facility] [place] Glucose Reference Range is dependent on time and content of last meal. Glucose of more than 200 mg/dL in a nonstressed, ambulatory subject supports the diagnosis of Diabetes Mellitus. PERFORMED BY: [facility] [address] [place] [address] PATHOLOGIST [employer]IC FINISHER BAUTISTA BAKER M.D. Performed By: #### G LULS #### Point of Care testing , Glucose Poct Glucometerson 0 07-17-2023 Commemt1 Glu2: Cleaned Meter Normal [facility] Comment on above: Result Comment: PERF ORMED BY: [facility] [address] [place] [address] PATHOLOGIST [employer]IC FINISHER BAUTISTA BAKER M.D. Performed By: #### H EPATIC, MG, LIPASE, CMP, CBC #### [facility] [address] [place] [id number] [facility] Glucose [Mass/Vol] 90 mg/dL Normal [facility] Comment on above: Result Comment: [place] Glucose Reference Range is dependent on time and content of last meal. Glucose of more than 200 mg/dL in a nonstressed, ambulatory subject supports the diagnosis of Diabetes Mellitus. Performed By: #### H EPATIC, MG, LIPASE, CMP, CBC #### [facility] [address] HISTORY PHYSICALon HISTORY PHYSICAL Normal [facility] NURSING PROGon 07-17-2023 NURSING PROG Normal [facility] No Panel InformationOrdered By: Camden Rodriguez on 07-17-2023 Bedside Glucose Comment Glu2: cleaned meter [facility] Alanine aminotransferase [En zymatic activity/volume] in Serum or PlasmaOrdered By: Shaan Sabillon on 07-16-2023 ALT [Catalytic activity/Vol] 39 U/L Normal 7-52 [facility] Comment on above: Performed By: #### A CORY ELIS, CUU #### [facility] [address] Albumin [Mass/volume] in Ser um or Plasma by Bromocresol green (BCG) dye binding methoOrdered By: Shaan Sabillon on 07-16-2023 Albumin BCG dye [Mass/Vol] 4.3 g/dL 3.5-5.7 [facility] Alkaline phosphatase [Enzyma tic activity/volume] in Serum or PlasmaOrdered By: Shaan Sabillon on 07-16-2023 ALP [Catalytic activity/Vol] 57 U/L Normal 34-104 [facility] Comment on above: Performed By: #### A CORY ELIS, CUU #### [facility] [address] Aspartate aminotransferase [ Enzymatic activity/volume] in Serum or PlasmaOrdered By: Shaan Sabillon on 07-16-2023 AST [Catalytic activity/Vol] 43 U/L High 13-39 [facility] Comment on above: Performed By: #### A JOSESITO RAY, CUU #### [facility] [address] Automated basophil %Ordered By: Shaan Sabillon on 07-16-2023 Basophils/100 WBC (Bld) 0.7 % Normal . [facility] Comment on above: Performed By: #### A JOSESITO RAY, CUU #### [address] Automated basophil countOrde red By: Shaan Sabillon on 07-16-2023 Basophils (Bld) [#/Vol] 0.0 10*3/uL Normal 0.0-0.2 [facility] Comment on above: Result Comment: PERF ORMED BY: [place] [address] PATHOLOGIST [employer]ISH[employer] BAUTISTA BAKER M.D. Performed By: #### A CORY ELIS, CUU #### [address] Automated blood monocyte cou ntOrdered By: Shaan Sabillon on 07-16-2023 Monocytes (Bld) [#/Vol] 0.3 10*3/uL Normal 0.0-0.8 [facility] Comment on above: Performed By: #### A JOSESITO RAY, CUU #### [address] Automated eosinophil %Ordere d By: Shaan Sabillon on 07-16-2023 Eosinophils/100 WBC (Bld) 0.5 % Normal . [facility] Comment on above: Performed By: #### A JOSESITO RAY, CUU #### [address] Automated eosinophil countOr dered By: Shaan Sabillon on 07-16-2023 Eosinophils (Bld) [#/Vol] 0.0 10*3/uL Normal 0.0-0.45 [facility] Comment on above: Performed By: #### A JOSESITO RAY, CUU #### [address] Automated monocyte %Ordered By: Shaan Sabillon on 07-16-2023 Monocytes/100 WBC (Bld) 4.5 % Normal . [facility] Comment on above: Performed By: #### A DDJOSESITO BERNABE, CUU #### [facility] [address] Automated neutrophil %Ordere d By: Shaan Sabillon on 07-16-2023 Neutrophils/100 WBC (Bld) 75.6 % Normal . [facility] Comment on above: Performed By: #### A DDFAIZAUAJESSICA, UHCG, CUU #### [facility] [address] Basic Metabolic Panelon 06-17 Creatinine Clr Calc Pharmacy 117.42 Normal [facility] Comment on above: Performed By: #### A DDONUAPLUS, CG, CUU #### [address] GFR/1.73 sq M.predicted MDRD (S/P/Bld) [Vol rate/Area] mL/min/{1.73_m2} Normal [facility] Comment on above: Performed By: #### A CORY ElroyG, CUU #### [address] Bilirubin Test strip Ql (U)O rdered By: Shaan Sabillon on 07-16-2023 Bilirubin Ql (U) Negative Negative [facility] Bilirubin.direct [Mass/volum e] in Serum or PlasmaOrdered By: Shaan Sabillon on 07-16-2023 Bilirubin.direct [Mass/Vol] 0.10 mg/dL 0.03-0.18 [facility] Bilirubin.total [Mass/volume ] in Serum or PlasmaOrdered By: Shaan Sabillon on 07-16-2023 Bilirubin [Mass/Vol] 0.6 mg/dL Normal 0.3-1.0 [facility] Comment on above: Performed By: #### A DDONDAVON, CG, CUU #### [address] abdomen pelvis w conon CT abdomen pelvis w con [facility] [place] [address] [place] [address] CT Scan Report Signed Patient: Abbey Garcia MR#: [id number] : 1990 Acct:[id number] Age/Sex: 33 / F ADM Date: 07/16/23 Loc: ER Room: Type: [facility] ER Attending Dr: Copies to: Shaan [...] Medel Jr., D.ORenetta07/16/2023 4:09 PM Dictation Location: [place] [address] Transcribed By: [facility] 07/16/23 1607 Dictated By: Cornel Medel Jr, DO 07/16/23 1606 Signed By: 07/16/23 1607 Normal [facility] Calcium [Mass/volume] in Ser um or PlasmaOrdered By: Shaan Sabillon on 07-16-2023 Calcium [Mass/Vol] 8.9 mg/dL Normal 8.6-10.3 [facility] Comment on above: Performed By: #### A DDONUAPLUS, UHCG, CUU #### [address] Carbon dioxide, total [Moles /volume] in Serum or PlasmaOrdered By: Shaan Sabillon on 07-16-2023 CO2 [Moles/Vol] 24.2 mmol/L Normal 21.0-31.0 [facility] Comment on above: Performed By: #### A DDONUAPLUS, UHCG, CUU #### [address] Chloride [Moles/volume] in S elder or PlasmaOrdered By: Shaan Sabillon on 07-16-2023 Chloride [Moles/Vol] 107 mmol/L Normal 98-107 [facility] Comment on above: Performed By: #### A DDONUAPLUS, UHCG, CUU #### [address] Color of Urine by AutoOrdere d By: Shaan Sabillon on 07-16-2023 Color (U) Yellow Normal Yellow [facility] Comment on above: Order Comment: Name Collection Type:: Clean-Voided Midstream Performed By: #### A DDONUAPLUS, UHCG, CUU #### [address] Complete Blood Count Auto Di ffon 07-16-2023 Mean Corpuscular HGB Conc 34.2 g/dL Normal 32.0-35.0 [facility] Comment on above: Performed By: #### A DDONUAPLUS, UHCG, CUU #### [place] [address] [place] Monocytes/100 WBC (Bld) 16.79 % Normal 0.00-20.00 [facility] Comment on above: Performed By: #### A DDONUAPLUS, UHCG, CUU #### [place] [address] [place] NRBC% 0.0 /100{WBC} Normal 0-0.5 [facility] Comment on above: Performed By: #### A DDONUAPLUS, UHCG, CUU #### [facility] [address] Creatinine [Mass/volume] in Serum or PlasmaOrdered By: Shaan Sabillon on 07-16-2023 Creatinine [Mass/Vol] 0.72 mg/dL Normal 0.60-1.20 [facility] Comment on above: Performed By: #### A DDONUAPLUS, UHCG, CUU #### [address] Erythrocyte distribution wid th [Ratio] by Automated countOrdered By: Shaan Sabillon on 07-16-2023 Erythrocyte distribution width (RBC) [Ratio] 14.4 % Normal 11.9-15.3 [facility] Comment on above: Performed By: #### A DDONUAPLUS, UHCG, CUU #### [address] Erythrocytes [#/volume] in B lood by Automated countOrdered By: Shaan Sabillon on 07-16-2023 RBC (Bld) [#/Vol] 3.67 10*6/uL Normal 3.60-5.00 [facility] Comment on above: Performed By: #### A DDONUAPLUS, UHCG, CUU #### [address] Glucose [Mass/volume] in Ser um or PlasmaOrdered By: Shaan Sabillon on 07-16-2023 Glucose [Mass/Vol] 82 mg/dL Normal 70-100 [facility] Comment on above: ADA recommended refe rence rangeRandom Glucose Reference Range is dependent on time and content of last meal. Glucose of more than 200 mg/dL in a nonstressed, ambulatory subject supports the diagnosis of Diabetes Mellitus. Result Comment: [place] om Glucose Reference Range is dependent on time and content of last meal. Glucose of more than 200 mg/dL in a nonstressed, ambulatory subject supports the diagnosis of Diabetes Mellitus. ADA recommended reference range Performed By: #### A DDONUAPLUS, UHCG, CUU #### [address] HCG ( test) IAmansi d Ql (U)Ordered By: Shaan Sabillon on 07-16-2023 HCG ( test) Ql (U) Negative [facility] HCG,Urineon 07-16-2023 Beta HCG ( test) Ql (U) Negative Normal [facility] Comment on above: Order Comment: Name Collection Type:: Clean-Voided Midstream Result Comment: PERF ORMED BY: [place] [address] PATHOLOGIST F[employer]IC FINISHER BAUTISTA BAKER M.D. Performed By: #### A CORY ElroyG, CUU #### [address] Hematocrit [Volume Fraction] of Blood by Automated countOrdered By: Shaan Sabillon on 07-16-2023 Hematocrit (Bld) [Volume fraction] 32.8 % Low 34.0-46.4 [facility] Comment on above: Performed By: #### A CORY ElroyG, CUU #### [address] Hemoglobin [Mass/volume] in BloodOrdered By: Shaan Sabillon on 07-16-2023 Hemoglobin (Bld) [Mass/Vol] 11.2 g/dL Low 11.8-15.4 [facility] Comment on above: Performed By: #### A ALIYAH RAYG, CUU #### [address] Hepatic Panelon 07-16-2023 Albumin [Mass/Vol] 4.3 g/dL Normal 3.5-5.7 [facility] Comment on above: Performed By: #### A DDONBRITTANIE MAYSCG, CUU #### [address] Bilirubin,Indirect 0.5 mg/dL Normal [facility] Comment on above: Performed By: #### A CORY [facility], CUU #### [address] Bilirubin.indirect [Mass/Vol] 0.10 mg/dL Normal 0.03-0.18 [facility] Comment on above: Performed By: #### A JOSESITO RAY, CUU #### [address] Ketones Auto test strip (U) [Mass/Vol]Ordered By: Shaan Sabillon on 07-16-2023 Ketones (U) [Mass/Vol] Negative Negative [facility] Leukocytes [#/volume] correc darvin for nucleated erythrocytes in Blood by Automated counOrdered By: Shaan Sabillon on 07-16-2023 WBC corrected for nucl RBC Auto (Bld) [#/Vol] 6.9 10*3/uL 3.8-11.6 [facility] Leukocytes [#/volume] in Blo od by Automated countOrdered By: Shaan Sabillon on 07-16-2023 WBC (Bld) [#/Vol] 6.9 10*3/uL Normal 3.8-11.6 [facility] Comment on above: Performed By: #### A CORY ELIS, CUU #### [address] Lipase [Enzymatic activity/v olume] in Serum or PlasmaOrdered By: Shaan Sabillon on 07-16-2023 Lipase [Catalytic activity/Vol] 45.0 U/L Normal 11.0-82.0 [facility] Comment on above: Result Comment: PERF ORMED BY: [place] [address] PATHOLOGIST F[employer] FINISHER BAUTISTA BAKER M.D. Performed By: #### A CORY ELIS, CUU #### [address] Lymphocytes [#/volume] in Bl ood by Automated countOrdered By: Shaan Sabillon on 07-16-2023 Lymphocytes (Bld) [#/Vol] 1.3 10*3/uL Normal 1.00-4.8 [facility] Comment on above: Performed By: #### A JOSESITO RAY, CUU #### [address] Lymphocytes/100 leukocytes i n Blood by Automated countOrdered By: Shaan Sabillon on 07-16-2023 Lymphocytes/100 WBC (Bld) 18.7 % Normal . [facility] Comment on above: Performed By: #### A JOSESITO RAY, CUU #### [address] MCH [Entitic mass] by Automa darvin countOrdered By: Shaan Sabillon on 07-16-2023 MCH (RBC) [Entitic mass] 30.5 pg Normal 24.7-34.3 [facility] Comment on above: Performed By: #### A JOSESITO RAY, CUU #### [address] MCHC Auto (RBC) [Mass/Vol]Or dered By: Shaan Sabillon on 07-16-2023 MCHC (RBC) [Mass/Vol] 34.2 g/dL 32.0-35.0 [facility] MCV [Entitic volume] by Auto mated countOrdered By: Shaan Sabillon on 07-16-2023 MCV (RBC) [Entitic vol] 89.2 fL Normal 80-100 [facility] Comment on above: Performed By: #### A JOSESITO RAY, CUU #### [address] Monocyte distribution width [Entitic volume] in Blood by AutomatedOrdered By: Shaan Sabillon on 07-16-2023 Monocyte distribution width Auto (Bld) [Entitic vol] 16.79 % 0.00-20.00 [facility] Neutrophils [#/volume] in Bl ood by Automated countOrdered By: Shaan Sabillon on 07-16-2023 Neutrophils (Bld) [#/Vol] 5.2 10*3/uL Normal 1.8-7.7 [facility] Comment on above: Performed By: #### A JOSESITO RAY, CUU #### [facility] [address] Nitrite Test strip Ql (U)Ord ered By: Shaan Sabillon on 07-16-2023 Nitrite Ql (U) Negative Negative [facility] No Panel InformationOrdered By: Shaan Sabillon on 07-16-2023 Estimated GFR (CKD-EPI) > 60.0 mL/Min [facility] Creatinine Clearance (Chem 117.42 [facility] Nucleated erythrocytes [Pres ence] in Blood by Automated countOrdered By: Shaan Sabillon on 07-16-2023 Nucleated RBC Auto Ql (Bld) 0.0 /100{WBC} 0-0.5 [facility] Platelet mean volume [Entiti c volume] in Blood by Automated countOrdered By: Shaan Sabillon on 07-16-2023 Platelet mean volume (Bld) [Entitic vol] 9.0 fL Normal 6.3-10.7 [facility] Comment on above: Performed By: #### A JOSESITO RAY, CUU #### [facility] [address] [place] [address] Platelets [#/volume] in Bloo d by Automated countOrdered By: Shaan Sabillon on 07-16-2023 Platelets (Bld) [#/Vol] 282 10*3/uL Normal 150-450 [facility] Comment on above: Performed By: #### A JOSESITO RAY, CUU #### [facility] [address] [place] [address] Potassium [Moles/volume] in Serum or PlasmaOrdered By: Shaan Sabillon on 07-16-2023 Potassium [Moles/Vol] 3.7 mmol/L Normal 3.5-5.1 [facility] Comment on above: Performed By: #### A JOSESITO RAY, CUU #### [facility] [address] [place] [address] Protein Auto test strip (U) [Mass/Vol]Ordered By: Shaan Sabillon on 07-16-2023 Protein (U) [Mass/Vol] Negative Negative [facility] Protein [Mass/volume] in Ser um or PlasmaOrdered By: Shaan Sabillon on 07-16-2023 Protein [Mass/Vol] 6.8 g/dL Normal 6.4-8.9 [facility] Comment on above: Performed By: #### A JOSESITO RAY, CUU #### [address] Serum globulin measurement b y calculation (mass/volume)Ordered By: Shaan Sabillon on 07-16-2023 Globulin (S) [Mass/Vol] 2.5 g/dL Normal [facility] Comment on above: Performed By: #### A JOSESITO RAY, CUU #### [address] Serum or plasma albumin/glob ulin mass ratioOrdered By: Shaan Sabillon on 07-16-2023 Albumin/Globulin [Mass ratio] 1.7 {ratio} Normal [facility] Comment on above: Performed By: #### A JOSESITO RAY, CUU #### [address] Serum or plasma anion gap de terminationOrdered By: Shaan Sabillon on 07-16-2023 Anion gap [Moles/Vol] 9.5 mmol/L Normal 6.0-15.0 [facility] Comment on above: Performed By: #### A JOSESITO RAY, CUU #### [address] Serum or plasma non-glucuron idated bilirubin measurement (mass/volume)Ordered By: Shaan Sabillon on 07-16-2023 Bilirubin.indirect [Mass/Vol] 0.5 mg/dL [facility] Sodium [Moles/volume] in Ser um or PlasmaOrdered By: Shaan Sabillon on 07-16-2023 Sodium [Moles/Vol] 137 mmol/L Normal 136-145 [facility] Comment on above: Performed By: #### A JOSESITO RAY, CUU #### [address] Specific gravity Auto test s trip (U) [Rel density]Ordered By: Shaan Sabillon on 07-16-2023 Specific gravity (U) [Rel density] 1.006 1.001-1.030 [facility] Urea nitrogen [Mass/volume] in Serum or PlasmaOrdered By: Shaan Sabillon on 07-16-2023 Urea nitrogen [Mass/Vol] 14 mg/dL Normal 7-25 [facility] Comment on above: Performed By: #### A DDONUAPLUS, UHCG, CUU #### [address] Urinalysison 07-16-2023 Appearance (U) Clear Normal Clear [facility] Comment on above: Order Comment: Name Collection Type:: Clean-Voided Midstream Performed By: #### A DDONUAPLUS, UHCG, CUU #### [address] Bilirubin,Urine Negative Normal Negative [facility] Comment on above: Order Comment: Name Collection Type:: Clean-Voided Midstream Performed By: #### A DDONUAPLUS, UHCG, CUU #### [address] Glucose Ql (U) Normal Normal Normal [facility] Comment on above: Order Comment: Name Collection Type:: Clean-Voided Midstream Performed By: #### A DDONUAPLUS, UHCG, CUU #### [address] Ketones Ql (U) Negative Normal Negative [facility] Comment on above: Order Comment: Name Collection Type:: Clean-Voided Midstream Performed By: #### A DDONUAPLUS, UHCG, CUU #### [address] Leukocyte esterase Test strip Ql (U) Negative Normal Negative [facility] Comment on above: Order Comment: Name Collection Type:: Clean-Voided Midstream Performed By: #### A DDONUAPLUS, UHCG, CUU #### [place] [address] [place] Nitrite,Urine Negative Normal Negative [facility] Comment on above: Order Comment: Name Collection Type:: Clean-Voided Midstream Performed By: #### A DDONUAPLUS, UHCG, CUU #### [place] [address] [place] Occult Blood,Urine Negative Normal Negative [facility] Comment on above: Order Comment: Name Collection Type:: Clean-Voided Midstream Performed By: #### A DDONUAPLUS, UHCG, CUU #### [place] [address] [place] Protein,Urine Negative Normal Negative [facility] Comment on above: Order Comment: Name Collection Type:: Clean-Voided Midstream Performed By: #### A DDONUAPLUS, UHCG, CUU #### [place] [address] [place] Specificy [place],Urine 1.006 Normal 1.001-1.030 [facility] Comment on above: Order Comment: Name Collection Type:: Clean-Voided Midstream Performed By: #### A DDONUAPLUS, UHCG, CUU #### [place] [address] [place] Urobilinogen,Urine Normal Normal Normal [facility] Comment on above: Order Comment: Name Collection Type:: Clean-Voided Midstream Performed By: #### A DDONUAPLUS, UHCG, CUU #### [address] Urine clarity by refractomet ry automatedOrdered By: Shaan Sabillon on 07-16-2023 Clarity Refractometry automated (U) Clear Clear [facility] Urine glucose measurement by automated test strip (mass/volume)Ordered By: Shaan Sabillon on 07-16-2023 Glucose Auto test strip (U) [Mass/Vol] Normal mg/dL Normal [facility] Urine hemoglobin detection b y automated test stripOrdered By: Shaan Sabillon on 07-16-2023 Hemoglobin Auto test strip Ql (U) Negative Negative [facility] Urine leukocyte esterase det ection by automated test stripOrdered By: Shaan Sabillon on 07-16-2023 Leukocyte esterase Auto test strip Ql (U) Negative Negative [facility] Urine pH measurement by auto mated test stripOrdered By: Shaan Sabillon on 07-16-2023 pH (U) 7.5 [pH] Normal 5.0-9.0 [facility] Comment on above: Order Comment: Name Collection Type:: Clean-Voided Midstream Performed By: #### A DDONUAPLUS, UHCG, CUU #### [facility] [address] Urobilinogen Auto test strip (U) [Mass/Vol]Ordered By: Shaan Sabillon on 07-16-2023 Urobilinogen (U) [Mass/Vol] Normal mg/dL Normal [facility] CNPNon 07-13-2023 CNPN Normal [facility] Basic metabolic 2000 panelon 07-06-2023 Anion gap [Moles/Vol] 11 mmol/L Normal 9-18 [facility] Comment on above: Order Comment: Speci men Type: BLOOD SPECIMENOrdering Facility: [facility] Address: [address] [place] [address] Performed By: #### 2 4321-2 ####[facility] LABCLIA [id number] [place] [address] [place] Calcium [Mass/Vol] 8.7 mg/dL Normal 8.5-10.2 [facility] Comment on above: Order Comment: Speci men Type: BLOOD SPECIMENOrdering Facility: [facility] Address: [address] [place] [address] Performed By: #### 2 4321-2 ####[facility] LABCLIA [id number] [place] [address] [place] Chloride [Moles/Vol] 110 mmol/L High 97-105 [facility] Comment on above: Order Comment: Speci men Type: BLOOD SPECIMENOrdering Facility: [facility] Address: [address] [place] [address] Performed By: #### 2 4321-2 ####[facility] LABCLIA [id number] [place] [address] [place] CO2 [Moles/Vol] 20 mmol/L Low 22-30 [facility] Comment on above: Order Comment: Speci men Type: BLOOD SPECIMENOrdering Facility: [facility] Address: [address] [place] [address] Performed By: #### 2 4321-2 ####[facility] LABCLIA [id number] [place] [address] [place] Creatinine [Mass/Vol] 0.64 mg/dL Normal 0.58-0.96 [facility] Comment on above: Order Comment: Speci men Type: BLOOD SPECIMENOrdering Facility: [facility] Address: [address] [place] [address] Performed By: #### 2 4321-2 ####[facility] LABCLIA [id number] [place] [address] [place] Creatinine and Glomerular filtration rate.predicted panel (S/P/Bld) 119 mL/min/1.73m??? Normal >=60 [facility] Comment on above: Order Comment: Speci men Type: BLOOD SPECIMENOrdering Facility: [facility] Address: [address] [place] [address] Result Comment: Jessica mated Glomerular Filtration Rate [...] actual GFR. Performed By: #### 2 4321-2 ####[facility] LABCLIA [id number] [place] [address] [place] Glucose [Mass/Vol] 89 mg/dL Normal 74-99 [facility] Comment on above: Order Comment: Speci men Type: BLOOD SPECIMENOrdering Facility: [facility] Address: [address] [place] [address] Result Comment: The [place] Diabetes Association (ADA) provides guidance for cutoff [...] Standards of Medical Care in Diabetes 2016, [place] [employer]. Diabetes Care. 2016.39(Suppl 1). Performed By: #### 2 4321-2 ####[facility] LABCLIA [id number] [place] [address] [place] Potassium [Moles/Vol] 3.9 mmol/L Normal 3.7-5.1 [facility] Comment on above: Order Comment: Speci men Type: BLOOD SPECIMENOrdering Facility: [facility] Address: [address] [place] [address] Performed By: #### 2 4321-2 ####[facility] LABCLIA [id number] [place] [address] [place] Sodium [Moles/Vol] 141 mmol/L Normal 136-144 [facility] Comment on above: Order Comment: Speci men Type: BLOOD SPECIMENOrdering Facility: [facility] Address: [address] [place], [place] [address] Performed By: #### 2 4321-2 ####[address] [facility] [id number] [place] [address] [place] Urea nitrogen [Mass/Vol] 14 mg/dL Normal 7-21 [facility] Comment on above: Order Comment: Speci men Type: BLOOD SPECIMENOrdering Facility: [facility] Address: [address] [place] [address] Performed By: #### 2 4321-2 ####[facility] LABCLIA [id number] [place] [address] [place] CBC W Auto Differential pane l (Bld)on 07-06-2023 Basophils (Bld) [#/Vol] 10*3/uL Normal <0.11 [facility] Comment on above: Order Comment: Speci men Type: BLOOD SPECIMENOrdering Facility: [facility] Address: [address] [place] [address] Performed By: #### 5 7021-8 ####[facility] LABCLIA [id number] [place] [address] [place] Basophils/100 WBC (Bld) 0.5 % Normal [facility] Comment on above: Order Comment: Speci men Type: BLOOD SPECIMENOrdering Facility: [facility] Address: [address] [place] [address] Performed By: #### 5 7021-8 ####[facility] LABCLIA [id number] [place] [address] [place] Differential cell count method Nom (Bld) Auto Normal [facility] Comment on above: Order Comment: Speci men Type: BLOOD SPECIMENOrdering Facility: [facility] Address: [address] [place] [address] Performed By: #### 5 7021-8 ####[facility] LABCLIA [id number] [place] [address] [place] Eosinophils (Bld) [#/Vol] 10*3/uL Normal <0.46 [facility] Comment on above: Order Comment: Speci men Type: BLOOD SPECIMENOrdering Facility: [facility] Address: [address] [place] [address] Performed By: #### 5 7021-8 ####[facility] LABCLIA [id number] [place] [address] [place] Eosinophils/100 WBC (Bld) 0.2 % Normal [facility] Comment on above: Order Comment: Speci men Type: BLOOD SPECIMENOrdering Facility: [facility] Address: [address] [place] [address] Performed By: #### 5 7021-8 ####[facility] LABCLIA [id number] [place] [address] [place] Erythrocyte distribution width (RBC) [Ratio] 14.0 % Normal 11.5-15.0 [facility] Comment on above: Order Comment: Speci men Type: BLOOD SPECIMENOrdering Facility: [facility] Address: [address] [place] [address] Performed By: #### 5 7021-8 ####[facility] LABCLIA [id number] [place] [address] [place] Hematocrit (Bld) [Volume fraction] 30.6 % Low 36.0-46.0 [facility] Comment on above: Order Comment: Speci men Type: BLOOD SPECIMENOrdering Facility: [facility] Address: [address] [place] [address] Performed By: #### 5 7021-8 ####[facility] LABCLIA [id number] [place] [address] [place] Hemoglobin (Bld) [Mass/Vol] 10.5 g/dL Low 11.5-15.5 [facility] Comment on above: Order Comment: Speci men Type: BLOOD SPECIMENOrdering Facility: [facility] Address: [address] [place] [address] Performed By: #### 5 7021-8 ####[facility] LABCLIA [id number] [place] [address] [place] Immature granulocytes (Bld) [#/Vol] 10*3/uL Normal <0.10 [facility] Comment on above: Order Comment: Speci men Type: BLOOD SPECIMENOrdering Facility: [facility] Address: [address] [place] [address] Performed By: #### 5 7021-8 ####[facility] LABCLIA [id number] [place] [address] [place] Immature granulocytes/100 WBC (Bld) 0.2 % Normal [facility] Comment on above: Order Comment: Speci men Type: BLOOD SPECIMENOrdering Facility: [facility] Address: [address] [place] [address] Performed By: #### 5 7021-8 ####[facility] LABCLIA [id number] [place] [address] [place] Lymphocytes (Bld) [#/Vol] 1.37 10*3/uL Normal 1.00-4.00 [facility] Comment on above: Order Comment: Speci men Type: BLOOD SPECIMENOrdering Facility: [facility] Address: [address] [place] [address] Performed By: #### 5 7021-8 ####[facility] LABCLIA [id number] [place] [address] [place] Lymphocytes/100 WBC (Bld) 31.2 % Normal [facility] Comment on above: Order Comment: Speci men Type: BLOOD SPECIMENOrdering Facility: [facility] Address: [address] [place] [address] Performed By: #### 5 7021-8 ####[facility] LABCLIA [id number] [place] [address] [place] MCH (RBC) [Entitic mass] 31.3 pg Normal 26.0-34.0 [facility] Comment on above: Order Comment: Speci men Type: BLOOD SPECIMENOrdering Facility: [facility] Address: [address] [place] [address] Performed By: #### 5 7021-8 ####[facility] LABCLIA [id number] [place] [address] [place] MCHC (RBC) [Mass/Vol] 34.3 g/dL Normal 30.5-36.0 [facility] Comment on above: Order Comment: Speci men Type: BLOOD SPECIMENOrdering Facility: [facility] Address: [address] [place] [address] Performed By: #### 5 7021-8 ####[facility] LABIA [id number] [place] [address] [place] MCV (RBC) [Entitic vol] 91.1 fL Normal 80.0-100.0 [facility] Comment on above: Order Comment: Speci men Type: BLOOD SPECIMENOrdering Facility: [facility] Address: [address] [place] [address] Performed By: #### 5 7021-8 ####[facility] LABIA [id number] [place] [address] [place] Monocytes (Bld) [#/Vol] 0.36 10*3/uL Normal <0.87 [facility] Comment on above: Order Comment: Speci men Type: BLOOD SPECIMENOrdering Facility: [facility] Address: [address] [place] [address] Performed By: #### 5 7021-8 ####[facility] LABIA [id number] [place] [address] [place] Monocytes/100 WBC (Bld) 8.2 % Normal [facility] Comment on above: Order Comment: Speci men Type: BLOOD SPECIMENOrdering Facility: [facility] Address: [address] [place] [address] Performed By: #### 5 7021-8 ####[facility] LABCLIA [id number] [place] [address] [place] Neutrophils (Bld) [#/Vol] 2.62 10*3/uL Normal 1.45-7.50 [facility] Comment on above: Order Comment: Speci men Type: BLOOD SPECIMENOrdering Facility: [facility] Address: [address] [place] [address] Performed By: #### 5 7021-8 ####[facility] LABIA [id number] [place] [address] [place] Neutrophils/100 WBC (Bld) 59.7 % Normal [facility] Comment on above: Order Comment: Speci men Type: BLOOD SPECIMENOrdering Facility: [facility] Address: [address] [place] [address] Performed By: #### 5 7021-8 ####[facility] LABIA [id number] [place] [address] [place] Nucleated RBC (Bld) [#/Vol] 10*3/uL Normal <0.01 [facility] Comment on above: Order Comment: Speci men Type: BLOOD SPECIMENOrdering Facility: [facility] Address: [address] [place] [address] Performed By: #### 5 7021-8 ####[facility] LABIA [id number] [place] [address] [place] Nucleated RBC/100 WBC (Bld) [Ratio] 0.0 /100 WBC Normal [facility] Comment on above: Order Comment: Speci men Type: BLOOD SPECIMENOrdering Facility: [facility] Address: [address] [place] [address] Performed By: #### 5 7021-8 ####[facility] LABIA [id number] [place] [address] [place] Platelet mean volume (Bld) [Entitic vol] 11.2 fL Normal 9.0-12.7 [facility] Comment on above: Order Comment: Speci men Type: BLOOD SPECIMENOrdering Facility: [facility] Address: [address] [place] [address] Performed By: #### 5 7021-8 ####[facility] LABCLIA [id number] [address] [address] [place] Platelets (Bld) [#/Vol] 219 10*3/uL Normal 150-400 [facility] Comment on above: Order Comment: Speci men Type: BLOOD SPECIMENOrdering Facility: [facility] Address: [address] [place] [address] Performed By: #### 5 7021-8 ####[facility] [id number] [place] [address] [place] RBC (Bld) [#/Vol] 3.36 10*6/uL Low 3.90-5.20 [facility] Comment on above: Order Comment: Speci men Type: BLOOD SPECIMENOrdering Facility: [facility] Address: [address] [place] [address] Performed By: #### 5 7021-8 ####[facility] [id number] [place] [address] [place] WBC (Bld) [#/Vol] 4.39 10*3/uL Normal 3.70-11.00 [facility] Comment on above: Order Comment: Speci men Type: BLOOD SPECIMENOrdering Facility: [facility] Address: [address] [place] [address] Performed By: #### 5 7021-8 ####[facility] [id number] [place] [id number] [place] CNOVon 07-06-2023 CNOV Normal [facility] CNPTOUTREACHon 07-06-2023 CNPTOUTREACH Normal [facility] CT FLANK WO IVCONon 07-06-[address] FLANK WO IVCON Normal [facility] ED NOTEon 07-06-2023 ED NOTE Normal [facility] ED NOTE HNO ID: [id number] Author: TG MUNOZ RN Service: Emergency Medicine Author Type: Registered Nurse Type: ED Notes Filed: 07/06/2023 20:35 Note Text: 0 mL post void residual. Normal [facility] ED NOTE HNO ID: [id number] Author: CORIE LINK RN Service: ? Author Type: Registered Nurse Type: ED Notes Filed: 07/06/2023 15:58 Note Text: Bed: E18-10 Expected date: Expected time: Means of arrival: Comments: HOLD: JOSE Normal [facility] ED PROV NOTEon 07-06-2023 ED PROV NOTE Normal [facility] ED Triage Noteon 07-06-2023 ED Triage Note Normal [facility] URINALYSIS, REFLEX MICROSCOP ICon 07-06-2023 Bilirubin Ql (U) Negative Negative [facility] Clarity (Unsp spec) Clear Clear [facility] Color (U) Light Yellow Yellow [facility] Glucose Test strip (U) [Mass/Vol] Negative Trace, Negative [facility] Hemoglobin Ql (U) Negative Negative, Trace [facility] Interpretation and review of laboratory results Normal [facility] Ketones Ql (U) Negative Negative, Trace [facility] Leukocyte esterase Test strip Ql (U) Negative Negative, 25 Patito/uL [facility] Nitrite Ql (U) Negative Negative [facility] pH (U) 7.0 [pH] 5.0 - 8.0 [facility] Protein (U) [Mass/Vol] Negative Trace, Negative [facility] Specific gravity (U) [Rel density] 1.010 1.005 - 1.030 [facility] Urobilinogen Ql (U) Normal Normal [facility] Bilirubin Ql (U) Negative Normal Negative [facility] Comment on above: Order Comment: Speci men Type: URINE SPECIMENOrdering Facility: [facility] Address: [address] [place] [address] Performed By: #### L [id number] ####[facility] LABCLIA [id number] [place] [address] [place] Clarity (Unsp spec) Clear Normal Clear [facility] Comment on above: Order Comment: Speci men Type: URINE SPECIMENOrdering Facility: [facility] Address: [address] [place] [address] Performed By: #### L [id number] ####[facility] LABCLIA [id number] [place] [address] [place] Color (U) Light Yellow Normal Yellow [facility] Comment on above: Order Comment: Speci men Type: URINE SPECIMENOrdering Facility: [facility] Address: [address] [place] [address] Performed By: #### L [id number] ####[facility] LABCLIA [id number] [place] [address] [place] Glucose Test strip (U) [Mass/Vol] Negative Normal Trace, Negative [facility] Comment on above: Order Comment: Speci men Type: URINE SPECIMENOrdering Facility: [facility] Address: [address] [place] [address] Performed By: #### L [id number] ####[facility] LABCLIA [id number] [place] [address] [place] Hemoglobin Ql (U) Negative Normal Negative, Trace Cl [facility] Comment on above: Order Comment: Speci men Type: URINE SPECIMENOrdering Facility: [facility] Address: [address] [place] [address] Performed By: #### L [id number] ####[facility] LABCLIA [id number] [place] [address] [place] Ketones Ql (U) Negative Normal Negative, Trace Vel [facility] Comment on above: Order Comment: Speci men Type: URINE SPECIMENOrdering Facility: [facility] Address: [address] [place], [place] [address] Performed By: #### L [id number] ####[facility] LABCLIA [id number] [place] [address] [place] Leukocyte esterase Test strip Ql (U) Negative Normal Negative, 25 Patito/uL [facility] Comment on above: Order Comment: Speci men Type: URINE SPECIMENOrdering Facility: [facility] Address: [address] [place] [address] Performed By: #### L [id number] ####[facility] LABIA [id number] [place] [address] [place] Nitrite Ql (U) Negative Normal Negative [facility] Comment on above: Order Comment: Speci men Type: URINE SPECIMENOrdering Facility: [facility] Address: [address] [place] [address] Performed By: #### L [id number] ####[facility] LABIA [id number] [place] [address] [place] pH (U) 7.0 [pH] Normal 5.0-8.0 [facility] Comment on above: Order Comment: Speci men Type: URINE SPECIMENOrdering Facility: [facility] Address: [address] [place] [address] Performed By: #### L [id number] ####[facility] LABIA [id number] [place] [address] [place] Protein (U) [Mass/Vol] Negative Normal Trace, Negative [facility] Comment on above: Order Comment: Speci men Type: URINE SPECIMENOrdering Facility: [facility] Address: [address] [place] [address] Performed By: #### L [id number] ####[facility] LABIA [id number] [place] [address] [place] Specific gravity (U) [Rel density] 1.010 Normal 1.005-1.030 [facility] Comment on above: Order Comment: Speci men Type: URINE SPECIMENOrdering Facility: [facility] Address: [address] [place] [address] Performed By: #### L [id number] ####[facility] LABIA [id number] [place] [address] [place] Urobilinogen Ql (U) Normal Normal Normal [facility] Comment on above: Order Comment: Speci men Type: URINE SPECIMENOrdering Facility: [facility] Address: [address] [place] [address] Performed By: #### L [id number] ####[facility] LABCLIA [id number] [place] [address] [place] Urinalysis complete panel (U )on 07-06-2023 Bacteria LM.HPF (Urine sed) [#/Area] Negative Normal Negative [facility] Comment on above: Order Comment: Speci men Type: URINE SPECIMENOrdering Facility: [facility] Address: [address] [place] [address] Performed By: #### 2 4356-8 ####[facility] LABCLIA [id number] [place] [address] [place] Bilirubin Ql (U) Negative Normal Negative [facility] Comment on above: Order Comment: Speci men Type: URINE SPECIMENOrdering Facility: [facility] Address: [address] [place] [address] Performed By: #### 2 4356-8 ####[facility] LABCLIA [id number] [place] [address] [place] Clarity (Unsp spec) Clear Normal Clear [facility] Comment on above: Order Comment: Speci men Type: URINE SPECIMENOrdering Facility: [facility] Address: [address] [place] [address] Performed By: #### 2 4356-8 ####[facility] LABCLIA [id number] [place] [address] [place] Color (U) Yellow Normal Yellow [facility] Comment on above: Order Comment: Speci men Type: URINE SPECIMENOrdering Facility: [facility] Address: [address] [place] [address] Performed By: #### 2 4356-8 ####[facility] LABCLIA [id number] [place] [address] [place] Epithelial cells LM.HPF (Urine sed) [#/Area] None Seen Normal [facility] Comment on above: Order Comment: Speci men Type: URINE SPECIMENOrdering Facility: [facility] Address: [address] [place] [address] Performed By: #### 2 4356-8 ####[facility] LABCLIA [id number] [place] [address] [place] Glucose Test strip (U) [Mass/Vol] Negative Normal Negative [facility] Comment on above: Order Comment: Speci men Type: URINE SPECIMENOrdering Facility: [facility] Address: [address] [place] [address] Performed By: #### 2 4356-8 ####[facility] LABCLIA [id number] [place] [address] [place] Hemoglobin Ql (U) Negative Normal Negative [facility] Comment on above: Order Comment: Speci men Type: URINE SPECIMENOrdering Facility: [facility] Address: [address] [place] [address] Performed By: #### 2 4356-8 ####[facility] LABCLIA [id number] [place] [address] [place] Hyaline casts (Urine sed) [#/Area] 0 /[LPF] Normal 0 /LPF [facility] Comment on above: Order Comment: Speci men Type: URINE SPECIMENOrdering Facility: [facility] Address: [address] [place] [address] Performed By: #### 2 4356-8 ####[facility] LABCLIA [id number] [place] [address] [place] Ketones Ql (U) Negative Normal Negative [facility] Comment on above: Order Comment: Speci men Type: URINE SPECIMENOrdering Facility: [facility] Address: [address] [place] [address] Performed By: #### 2 4356-8 ####[facility] LABCLIA [id number] [place] [address] [place] Leukocyte esterase Test strip Ql (U) Negative Normal Negative [facility] Comment on above: Order Comment: Speci men Type: URINE SPECIMENOrdering Facility: [facility] Address: [address] [place] [address] Performed By: #### 2 4356-8 ####[facility] LABCLIA [id number] [place] [address] [place] Nitrite Ql (U) Negative Normal Negative [facility] Comment on above: Order Comment: Speci men Type: URINE SPECIMENOrdering Facility: [facility] Address: [address] [place] [address] Performed By: #### 2 4356-8 ####[facility] LABCLIA [id number] [place] [address] [place] pH (U) 7.5 [pH] Normal <8.5 [facility] Comment on above: Order Comment: Speci men Type: URINE SPECIMENOrdering Facility: [facility] Address: [address] [place] [address] Performed By: #### 2 4356-8 ####[facility] LABCLIA [id number] [place] [address] [place] Protein (U) [Mass/Vol] Negative Normal Negative [facility] Comment on above: Order Comment: Speci men Type: URINE SPECIMENOrdering Facility: [facility] Address: [address] [place] [address] Performed By: #### 2 4356-8 ####[facility] LABCLIA [id number] [place] [address] [place] RBC LM.HPF (Urine sed) [#/Area] 0-2 /HPF Normal 0-2 /HPF [facility] Comment on above: Order Comment: Speci men Type: URINE SPECIMENOrdering Facility: [facility] Address: [address] [place] [address] Performed By: #### 2 4356-8 ####[facility] LABIA [id number] [place] [address] [place] Specific gravity (U) [Rel density] 1.020 Normal 1.005-1.030 [facility] Comment on above: Order Comment: Speci men Type: URINE SPECIMENOrdering Facility: [facility] Address: [address] [place] [address] Performed By: #### 2 4356-8 ####[facility] [id number] [place] [address] [place] Urobilinogen Ql (U) 1.0 EU/dL Normal 0.2-1.0 EU/dL [facility] Comment on above: Order Comment: Speci men Type: URINE SPECIMENOrdering Facility: [facility] Address: [address] [place] [address] Performed By: #### 2 4356-8 ####[facility] [id number] [place] [address] [place] WBC LM.HPF (Urine sed) [#/Area] 0-5 /HPF Normal 0-5 /HPF [facility] Comment on above: Order Comment: Speci men Type: URINE SPECIMENOrdering Facility: [facility] Address: [address] [place] [address] Performed By: #### 2 4356-8 ####[facility] [id number] [place] [address] [place] XR CHEST 2V FRONTAL/LATon XR CHEST 2V FRONTAL/LAT Normal [facility] Glucose Test strip manual (B ld) [Mass/Vol]on 07-03-2023 Glucose [Mass/Vol] 121 mg/dL High 74 - 99 mg/dL [facility] Interpretation and review of laboratory results Abnormal [facility] Glucose [Mass/Vol] 121 mg/dL High 74-99 [facility] Comment on above: Performed By: #### 2 4356-8 #### MELISA Galvan ([id number]) [facility] () [address] [place] [address] CBC panel Auto (Bld)on 07-01 Erythrocyte distribution width (RBC) [Ratio] 13.4 % 11.5 - 14.5 % [facility] Hematocrit (Bld) [Volume fraction] 35.5 % Low 36.0 - 46.0 % [facility] Hemoglobin (Bld) [Mass/Vol] 11.8 g/dL Low 12.0 - 16.0 g/dL [facility] Interpretation and review of laboratory results Abnormal [facility] MCH (RBC) [Entitic mass] 30.3 pg 26.0 - 34.0 pg [facility] MCHC (RBC) [Mass/Vol] 33.2 g/dL 32.0 - 36.0 g/dL [facility] MCV (RBC) [Entitic vol] 91 fL 80 - 100 fL [facility] Nucleated RBC/100 WBC (Bld) [Ratio] 0.0 % [facility] Platelets (Bld) [#/Vol] 223 10*3/uL [facility] RBC (Bld) [#/Vol] 3.89 10*6/uL Low [facility] WBC (Bld) [#/Vol] 4.5 10*3/uL [facility] Erythrocyte distribution width (RBC) [Ratio] 13.4 % Normal 11.5-14.5 [facility] Comment on above: Performed By: #### 2 4356-8 #### MELISA Galvan ([id number]) [facility] () [address] [place] [address] Hematocrit (Bld) [Volume fraction] 35.5 % Low 36.0-46.0 [facility] Comment on above: Performed By: #### 2 4356-8 #### MELISA Galvan ([id number]) [facility] () [address] [place] [address] Hemoglobin (Bld) [Mass/Vol] 11.8 g/dL Low 12.0-16.0 [facility] Comment on above: Performed By: #### 2 4356-8 #### MELISA Galvan ([id number]) [facility] () [address] [place] [address] MCH (RBC) [Entitic mass] 30.3 pg Normal 26.0-34.0 [facility] Comment on above: Performed By: #### 2 4356-8 #### MELISA Galvan ([id number]) [facility] () [address] [place] [address] MCHC (RBC) [Mass/Vol] 33.2 g/dL Normal 32.0-36.0 [facility] Comment on above: Performed By: #### 2 4356-8 #### MELISA Galvan ([id number]) [facility] () [address] [place] [address] MCV (RBC) [Entitic vol] 91 fL Normal 80-100 [facility] Comment on above: Performed By: #### 2 4356-8 #### MELISA Galvan ([id number]) [facility] () [address] [place] [address] Nucleated RBC/100 WBC (Bld) [Ratio] 0.0 /100 WBCs Normal 0.0-0.0 [facility] Comment on above: Performed By: #### 2 4356-8 #### MELISA Galvan (37266) [facility] () [address] [place] [address] Platelets (Bld) [#/Vol] 223 x10*3/uL Normal 150-450 [facility] Comment on above: Performed By: #### 2 4356-8 #### MELISA Galvan ([id number]) [facility] () [address] [place] [address] RBC (Bld) [#/Vol] 3.89 x10*6/uL Low 4.00-5.20 [facility] Comment on above: Performed By: #### 2 4356-8 #### MELISA Galvan ([id number]) [facility] () [address] [place] [address] WBC (Bld) [#/Vol] 4.5 x10*3/uL Normal 4.4-11.3 [facility] Comment on above: Performed By: #### 2 4356-8 #### MELISA Galvan ([id number]) [facility] () [address] [place] [address] Glucose Test strip manual (B ld) [Mass/Vol]on 07-02-2023 Glucose [Mass/Vol] 103 mg/dL High 74 - 99 mg/dL [facility] Interpretation and review of laboratory results Abnormal [facility] Glucose [Mass/Vol] 103 mg/dL High 74-99 [facility] Comment on above: Performed By: #### 2 4356-8 #### MELISA Galvan ([id number]) [facility] () [address] [place] [address] Glucose [Mass/Vol] 112 mg/dL High 74 - 99 mg/dL [facility] Interpretation and review of laboratory results Abnormal [facility] Glucose [Mass/Vol] 112 mg/dL High 74-99 [facility] Comment on above: Performed By: #### 2 4356-8 #### MELISA Galvan ([id number]) [facility] () [address] [place] [address] Glucose [Mass/Vol] 99 mg/dL 74 - 99 mg/dL [facility] Interpretation and review of laboratory results Normal [facility] Glucose [Mass/Vol] 99 mg/dL Normal 74-99 [facility] Comment on above: Performed By: #### 2 4356-8 #### MELISA POOLESarwat Galvan ([id number]) [facility] () [address] [place] [address] Glucose [Mass/Vol] 135 mg/dL High 74 - 99 mg/dL [facility] Interpretation and review of laboratory results Abnormal [facility] Glucose [Mass/Vol] 135 mg/dL High 74-99 [facility] Comment on above: Performed By: #### 2 4356-8 #### MELISA ALEXANDRO Galvan ([id number]) [facility] () [address] [place] [address] Renal function 2000 panelon 07-02-2023 Albumin [Mass/Vol] 4.0 g/dL 3.5 - 5.0 g/dL [facility] Anion gap [Moles/Vol] 11 mmol/L NINF - 19 mmol/L [facility] Calcium [Mass/Vol] 8.6 mg/dL 8.5 - 10.4 mg/dL [facility] Chloride [Moles/Vol] 103 mmol/L 97 - 107 mmol/L [facility] CO2 [Moles/Vol] 23 mmol/L Low 24 - 31 mmol/L [facility] Creatinine [Mass/Vol] 0.70 mg/dL 0.40 - 1.60 mg/dL [facility] eGFR - PINF [facility] Comment on above: Calculations of jessica mated GFR are performed using the 2020 CKD-EPI Study Refit equation without the race variable for the IDMS-Traceable creatinine methods. https://jasn.asnjournals.org/content//ASN.87722445 88 Glucose [Mass/Vol] 101 mg/dL High 65 - 99 mg/dL [facility] Interpretation and review of laboratory results Abnormal [facility] Phosphate [Mass/Vol] 4.0 mg/dL 2.5 - 4.5 mg/dL [facility] Potassium [Moles/Vol] 3.9 mmol/L 3.4 - 5.1 mmol/L [facility] Sodium [Moles/Vol] 137 mmol/L 133 - 145 mmol/L [facility] Urea nitrogen [Mass/Vol] 13 mg/dL 8 - 25 mg/dL [facility] Albumin [Mass/Vol] 4.0 g/dL Normal 3.5-5.0 [facility] Comment on above: Performed By: #### 2 4356-8 #### MELISA Galvan ([id number]) [facility] () [address] [place] [address] Anion gap [Moles/Vol] 11 mmol/L Normal <=19 [facility] Comment on above: Performed By: #### 2 4355-8 #### MELISA Galvan ([id number]) [facility] () [address] [place] [address] Calcium [Mass/Vol] 8.6 mg/dL Normal 8.5-10.4 [facility] Comment on above: Performed By: #### 2 435-8 #### MELISA Galvan ([id number]) [facility] () [address] [place] [address] Chloride [Moles/Vol] 103 mmol/L Normal 97-107 [facility] Comment on above: Performed By: #### 2 4356-8 #### MELISA Galvan ([id number]) [facility] () [address] [place] [address] CO2 [Moles/Vol] 23 mmol/L Low 24-31 [facility] Comment on above: Performed By: #### 2 4356-8 #### MELISA Galvan (59155) [facility] () [address] [place] [address] Creatinine [Mass/Vol] 0.70 mg/dL Normal 0.40-1.60 [facility] Comment on above: Performed By: #### 2 4356-8 #### MELISA Galvan ([id number]) [facility] () [address] [place] [address] GFR/1.73 sq M.predicted MDRD (S/P/Bld) [Vol rate/Area] mL/min/{1.73_m2} Normal >60 [facility] Comment on above: Result Comment: Calc ulations of estimated GFR are performed using the 2020 CKD-EPI Study Refit equation without the race variable for the IDMS-Traceable creatinine methods. https://jasn.asnjournals.org/content//ASN.52286259 88 Performed By: #### 2 4356-8 #### MELISA Galvan ([id number]) [facility] () [address] [place] [address] Glucose [Mass/Vol] 101 mg/dL High 65-99 [facility] Comment on above: Performed By: #### 2 4356-8 #### MELISA Galvan ([id number]) [facility] () [address] [place] [address] Phosphate [Mass/Vol] 4.0 mg/dL Normal 2.5-4.5 [facility] Comment on above: Performed By: #### 2 4356-8 #### MELISA Galvan ([id number]) [facility] () [address] [place] [address] Potassium [Moles/Vol] 3.9 mmol/L Normal 3.4-5.1 [facility] Comment on above: Performed By: #### 2 4356-8 #### MELISA Galvan (93133) [facility] () [address] [place] [address] Sodium [Moles/Vol] 137 mmol/L Normal 133-145 [facility] Comment on above: Performed By: #### 2 4356-8 #### MELISA Galvan (14528) [facility] () [address] [place] [address] Urea nitrogen [Mass/Vol] 13 mg/dL Normal 8-25 [facility] Comment on above: Performed By: #### 2 4356-8 #### MELISA Galvan (17359) [facility] () [address] [place] [address] CBC panel Auto (Bld)on 06-30 Erythrocyte distribution width (RBC) [Ratio] 13.7 % 11.5 - 14.5 % [facility] Hematocrit (Bld) [Volume fraction] 36.7 % 36.0 - 46.0 % [facility] Hemoglobin (Bld) [Mass/Vol] 12.0 g/dL 12.0 - 16.0 g/dL [facility] Interpretation and review of laboratory results Abnormal [facility] MCH (RBC) [Entitic mass] 31.1 pg 26.0 - 34.0 pg [facility] MCHC (RBC) [Mass/Vol] 32.7 g/dL 32.0 - 36.0 g/dL [facility] MCV (RBC) [Entitic vol] 95 fL 80 - 100 fL [facility] Nucleated RBC/100 WBC (Bld) [Ratio] 0.0 % [facility] Platelets (Bld) [#/Vol] 228 10*3/uL [facility] RBC (Bld) [#/Vol] 3.86 10*6/uL [facility] WBC (Bld) [#/Vol] 3.3 10*3/uL [facility] Erythrocyte distribution width (RBC) [Ratio] 13.7 % Normal 11.5-14.5 [facility] Comment on above: Performed By: #### 5 8410-2 #### MELISA Galvan (56500) [facility] () [address] [place] [address] Hematocrit (Bld) [Volume fraction] 36.7 % Normal 36.0-46.0 [facility] Comment on above: Performed By: #### 5 8410-2 #### MELISA Galvan (99914) [facility] () [address] [place] [address] Hemoglobin (Bld) [Mass/Vol] 12.0 g/dL Normal 12.0-16.0 [facility] Comment on above: Performed By: #### 5 8410-2 #### MELISA Galvan (86182) [facility] () [address] [place] [address] MCH (RBC) [Entitic mass] 31.1 pg Normal 26.0-34.0 [facility] Comment on above: Performed By: #### 5 8410-2 #### MELISA Galvan () [facility] () [address] [place] [address] MCHC (RBC) [Mass/Vol] 32.7 g/dL Normal 32.0-36.0 [facility] Comment on above: Performed By: #### 5 8410-2 #### MELISA Galvan (80396) [facility] () [address] [place] [address] MCV (RBC) [Entitic vol] 95 fL Normal 80-100 [facility] Comment on above: Performed By: #### 5 8410-2 #### MELISA Galvan (66178) [facility] () [address] [place] [address] Nucleated RBC/100 WBC (Bld) [Ratio] 0.0 /100 WBCs Normal 0.0-0.0 [facility] Comment on above: Performed By: #### 5 8410-2 #### MELISA Galvan (92546) [facility] () [address] [place] [address] Platelets (Bld) [#/Vol] 228 x10*3/uL Normal 150-450 [facility] Comment on above: Performed By: #### 5 8410-2 #### MELISA Galvan (94324) [facility] () [address] [place] [address] RBC (Bld) [#/Vol] 3.86 x10*6/uL Low 4.00-5.20 [facility] Comment on above: Performed By: #### 5 8410-2 #### MELISA Galvan (09254) [facility] () [address] [place] [address] WBC (Bld) [#/Vol] 3.3 x10*3/uL Low 4.4-11.3 [facility] Comment on above: Performed By: #### 5 8410-2 #### MELISA Galvan (43241) [facility] () [address] [place] [address] Glucose Test strip manual (B ld) [Mass/Vol]on 07-01-2023 Glucose [Mass/Vol] 104 mg/dL High 74 - 99 mg/dL [facility] Interpretation and review of laboratory results Abnormal [facility] Glucose [Mass/Vol] 104 mg/dL High 74-99 [facility] Comment on above: Performed By: #### 5 8410-2 #### MELISA Galvan ([id number]) [facility] () [address] [place] [address] Glucose [Mass/Vol] 92 mg/dL 74 - 99 mg/dL [facility] Interpretation and review of laboratory results Normal [facility] Glucose [Mass/Vol] 92 mg/dL Normal 74-99 [facility] Comment on above: Performed By: #### 5 8410-2 #### MELISA Galvan (88940) [facility] () [address] [place] [address] Glucose [Mass/Vol] 88 mg/dL 74 - 99 mg/dL [facility] Interpretation and review of laboratory results Normal [facility] Glucose [Mass/Vol] 88 mg/dL Normal 74-99 [facility] Comment on above: Performed By: #### 5 8410-2 #### MELISA Galvan (96053) [facility] () [address] [place] [address] Glucose [Mass/Vol] 105 mg/dL High 74 - 99 mg/dL [facility] Interpretation and review of laboratory results Abnormal [facility] Glucose [Mass/Vol] 105 mg/dL High 74-99 [facility] Comment on above: Performed By: #### 5 8410-2 #### MELISA Galvan (94952) [facility] () [address] [place] [address] Glucose [Mass/Vol] 86 mg/dL 74 - 99 mg/dL [facility] Interpretation and review of laboratory results Normal [facility] Glucose [Mass/Vol] 86 mg/dL Normal 74-99 [facility] Comment on above: Performed By: #### 5 8410-2 #### MELISA Galvan (06991) [facility] () [address] [place] [address] Glucose [Mass/Vol] 98 mg/dL 74 - 99 mg/dL [facility] Interpretation and review of laboratory results Normal [facility] Glucose [Mass/Vol] 98 mg/dL Normal 74-99 [facility] Comment on above: Performed By: #### 5 8410-2 #### MELISA Galvan (58072) [facility] () [address] [place] [address] [facility] 2023 Home Health Records [id number] Normal [facility] Magnesiumon 07-01-2023 Magnesium [Mass/Vol] 2.00 mg/dL 1.60 - 3.10 mg/dL [facility] Magnesium [Mass/Vol] 2.00 mg/dL Normal 1.60-3.10 [facility] Comment on above: Performed By: #### 5 8410-2 #### MELISA Galvan (29388) [facility] () [address] [place] [address] Magnesium [Mass/Vol]on 06-30 Interpretation and review of laboratory results Normal [facility] Renal function 2000 panelon 07-01-2023 Albumin [Mass/Vol] 3.8 g/dL 3.5 - 5.0 g/dL [facility] Anion gap [Moles/Vol] 12 mmol/L NINF - 19 mmol/L [facility] Calcium [Mass/Vol] 8.5 mg/dL 8.5 - 10.4 mg/dL [facility] Chloride [Moles/Vol] 106 mmol/L 97 - 107 mmol/L [facility] CO2 [Moles/Vol] 21 mmol/L Low 24 - 31 mmol/L [facility] Creatinine [Mass/Vol] 0.70 mg/dL 0.40 - 1.60 mg/dL [facility] eGFR - PINF [facility] Comment on above: Calculations of jessica mated GFR are performed using the 2020 CKD-EPI Study Refit equation without the race variable for the IDMS-Traceable creatinine methods. https://jasn.asnjournals.org/content//ASN.25413559 88 Glucose [Mass/Vol] 113 mg/dL High 65 - 99 mg/dL [facility] Interpretation and review of laboratory results Abnormal [facility] Phosphate [Mass/Vol] 5.4 mg/dL High 2.5 - 4.5 mg/dL [facility] Potassium [Moles/Vol] 3.9 mmol/L 3.4 - 5.1 mmol/L [facility] Sodium [Moles/Vol] 139 mmol/L 133 - 145 mmol/L [facility] Urea nitrogen [Mass/Vol] 12 mg/dL 8 - 25 mg/dL [facility] Albumin [Mass/Vol] 3.8 g/dL Normal 3.5-5.0 [facility] Comment on above: Performed By: #### 5 8410-2 #### MELISA Galvan ([id number]) [facility] ([place]) [address] [place] [address] Anion gap [Moles/Vol] 12 mmol/L Normal <=19 [facility] Comment on above: Performed By: #### 5 8410-2 #### MELISA Galvan (57611) [facility] () [address] [place] [address] Calcium [Mass/Vol] 8.5 mg/dL Normal 8.5-10.4 [facility] Comment on above: Performed By: #### 5 8410-2 #### MELISA Galvan (14486) [facility] () [address] [place] [address] Chloride [Moles/Vol] 106 mmol/L Normal 97-107 [facility] Comment on above: Performed By: #### 5 8410-2 #### MELISA Galvan (91651) [facility] () [address] [place] [address] CO2 [Moles/Vol] 21 mmol/L Low 24-31 [facility] Comment on above: Performed By: #### 5 8410-2 #### MELISA Galvan (86730) [facility] () [address] [place] [address] Creatinine [Mass/Vol] 0.70 mg/dL Normal 0.40-1.60 [facility] Comment on above: Performed By: #### 5 8410-2 #### MELISA Galvan (48579) [facility] () [address] [place] [address] GFR/1.73 sq M.predicted MDRD (S/P/Bld) [Vol rate/Area] mL/min/{1.73_m2} Normal >60 [facility] Comment on above: Result Comment: Calc ulations of estimated GFR are performed using the 2020 CKD-EPI Study Refit equation without the race variable for the IDMS-Traceable creatinine methods. https://jasn.asnjournals.org/content//ASN.32963106 88 Performed By: #### 5 8410-2 #### MELISA Galvan (58914) [facility] () [address] [place] [address] Glucose [Mass/Vol] 113 mg/dL High 65-99 [facility] Comment on above: Performed By: #### 5 8410-2 #### MELISA Galvan (51726) [facility] () [address] [place] [address] Phosphate [Mass/Vol] 5.4 mg/dL High 2.5-4.5 [facility] Comment on above: Performed By: #### 5 8410-2 #### MELISA Galvan ([id number]) [facility] () [address] [place] [address] Potassium [Moles/Vol] 3.9 mmol/L Normal 3.4-5.1 [facility] Comment on above: Performed By: #### 5 8410-2 #### MELISA Galvan (59028) [facility] () [address] [place] [address] Sodium [Moles/Vol] 139 mmol/L Normal 133-145 [facility] Comment on above: Performed By: #### 5 8410-2 #### MELISA Galvan (78447) [facility] () [address] [place] [address] Urea nitrogen [Mass/Vol] 12 mg/dL Normal 8-25 [facility] Comment on above: Performed By: #### 5 8410-2 #### MELISA Galvan (55738) [facility] () [address] [place] [address] Vascular US mesenteric arter y duplex completeon 07-01-2023 [facility] [address] [place], [place] [address] Vascular Lab Report VASC US MESENTERIC ARTERY DUPLEX COMPLETE Patient Name: ABBEY FloresRenetta Oneil Physician: [id number] Sherry Magaña MD Study Date: 06/30/2023 Ordering Provider: [id number] JAMIL GAVIN MRN/PID: [id number] Fellow: Technologist: Leia Degroot RVT Date of /Age: 2 1990 / 33 years Technologist 2: Gender: F Admission Status: Inpatient Location Performed: [facility] 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 CPT Codes: 77236 Mesenteric Duplex scan Pertinent Release of the [...] Final (Amended) Sherry Santillan MD - 07/01/2023 [place] [id number] Vascular Lab Report [facility] US MESENTERIC ARTERY DUPLEX COMPLETE Patient Name: ABBEY GARCIA Reading Physician: [id number] Magaña MD Study Date: 06/30/2023 Ordering Provider: [id number] JAMIL GAVIN MRN/PID: [id number] Fellow: Technologist: Leia Degroot RVMary Jane Date of /Age: 2 1990 / 33 years Technologist 2: Gender: F Admission Status: Inpatient Location Performed: [facility] 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 Right-sided PICC line identified with tip in the region of the mid SVC. No infiltrate or effusion is identified. Visualized osseous structures unremarkable. IMPRESSION: 1. Right PICC line placement with tip in the mid SVC. Signed by: Dotty Salcido 07/01/2023 1:46 PM Dictation workstation: [id number] [facility] XR Chest Single viewon 06-30 1. Right PICC line placement with tip in the mid SVC. Signed by: Dotty Salcido 07/01/2023 1:46 PM Dictation workstation: [id number] Interpreted By: Dotty Salcido, STUDY: XR CHEST 1 VIEW 07/01/2023 1:30 pm INDICATION: Signs/Symptoms:PICC line position verification COMPARISON: 03/17/2023 ACCESSION NUMBER(S): [id number] ORDERING CLINICIAN: DOLORES COX TECHNIQUE: Single AP [...] line position verification COMPARISON: 03/17/2023 ACCESSION NUMBER(S): [id number] ORDERING CLINICIAN: DOLORES COX TECHNIQUE: Single AP view chest FINDINGS: Cardiomediastinal silhouette is within normal limits. Right-sided PICC line identified with tip in the region of the mid SVC. No infiltrate or effusion is identified. Visualized osseous structures unremarkable. IMPRESSION: 1. Right PICC line placement with tip in the mid SVC. Signed by: Dotty Salcido 07/01/2023 1:46 PM Dictation workstation: [id number] [facility] Work Phone: Radiology Study observation (narrative) [facility] Work Phone: XR Chest Single viewOrdered By: Dotty Salcido on 07-01-2023 [facility] Work Phone: CBC panel Auto (Bld)on 06-29 Erythrocyte distribution width (RBC) [Ratio] 13.8 % 11.5 - 14.5 % [facility] Hematocrit (Bld) [Volume fraction] 32.2 % Low 36.0 - 46.0 % [facility] Hemoglobin (Bld) [Mass/Vol] 10.8 g/dL Low 12.0 - 16.0 g/dL [facility] Interpretation and review of laboratory results Abnormal [facility] MCH (RBC) [Entitic mass] 31.0 pg 26.0 - 34.0 pg [facility] MCHC (RBC) [Mass/Vol] 33.5 g/dL 32.0 - 36.0 g/dL [facility] MCV (RBC) [Entitic vol] 93 fL 80 - 100 fL [facility] Nucleated RBC/100 WBC (Bld) [Ratio] 0.0 % [facility] Platelets (Bld) [#/Vol] 217 10*3/uL [facility] RBC (Bld) [#/Vol] 3.48 10*6/uL [facility] WBC (Bld) [#/Vol] 5.0 10*3/uL [facility] Erythrocyte distribution width (RBC) [Ratio] 13.8 % Normal 11.5-14.5 [facility] Comment on above: Performed By: #### 5 8410-2 ####MELISA Galvan ([id number])[facility] ()[address] [place] [address] Hematocrit (Bld) [Volume fraction] 32.2 % Low 36.0-46.0 [facility] Comment on above: Performed By: #### 5 8410-2 ####MELISA Galvan ()[facility] ()[address] [place] [address] Hemoglobin (Bld) [Mass/Vol] 10.8 g/dL Low 12.0-16.0 [facility] Comment on above: Performed By: #### 5 8410-2 ####MELISA Galvan ()[facility] ()[address] [place] [address] MCH (RBC) [Entitic mass] 31.0 pg Normal 26.0-34.0 [facility] Comment on above: Performed By: #### 5 8410-2 ####MELISA Galvan ()[facility] ()[address] [place] [address] MCHC (RBC) [Mass/Vol] 33.5 g/dL Normal 32.0-36.0 [facility] Comment on above: Performed By: #### 5 8410-2 ####MELISA Galvan ()[facility] ()[address] [place] [address] MCV (RBC) [Entitic vol] 93 fL Normal 80-100 [facility] Comment on above: Performed By: #### 5 8410-2 ####MELISA Galvan ()[facility] ()[address] [place] [address] Nucleated RBC/100 WBC (Bld) [Ratio] 0.0 /100 WBCs Normal 0.0-0.0 [facility] Comment on above: Performed By: #### 5 8410-2 ####MELISA Galvan ()[facility] ()[address] [place] [address] Platelets (Bld) [#/Vol] 217 x10*3/uL Normal 150-450 [facility] Comment on above: Performed By: #### 5 8410-2 ####MELISA Galvan ([id number])[facility] ()[address] [place] [facility] [place] [address] RBC (Bld) [#/Vol] 3.48 x10*6/uL Low 4.00-5.20 [facility] Comment on above: Performed By: #### 5 8410-2 ####MELISA Galvan (16929)[facility] ()[address] [place] [address] WBC (Bld) [#/Vol] 5.0 x10*3/uL Normal 4.4-11.3 [facility] Comment on above: Performed By: #### 5 8410-2 ####MELISA Galvan ([id number])[facility] ()[address] [place] [address] [place] ANGIO ABDOMEN PELVIS W AN D/OR WO IV IV CONTRASTon 06-30-2023 CT ANGIO ABDOMEN PELVIS W AND/OR WO IV IV CONTRAST Interpreted By: Audie Gutierrez, STUDY: CT ANGIO ABDOMEN PELVIS W AND/OR WO IV IV CONTRAST; 06/30/2023 10:56 am INDICATION: Signs/Symptoms:Carmela ac disease; COMPARISON: 06/29/2023 ACCESSION NUMBER(S): [id number] ORDERING CLINICIAN: TIFFANIE MENDEZ TECHNIQUE: Contiguous axial [...] Audie Gutierrez 06/30/2023 12:06 PM Dictation workstation: [id number] [facility] Comment on above: Order [...] Audie Gutierrez 06/30/2023 12:06 PM Dictation workstation: [id number] Interpreted By: Audie Gutierrez, STUDY: CT ANGIO ABDOMEN PELVIS W AND/OR WO IV IV CONTRAST; 06/30/2023 10:56 am INDICATION: Signs/Symptoms:Carmela ac disease; COMPARISON: 06/29/2023 ACCESSION NUMBER(S): [id number] ORDERING CLINICIAN: TIFFANIE MENDEZ TECHNIQUE: Contiguous axial [...] Signs/Symptoms:Carmela ac disease; COMPARISON: 06/29/2023 ACCESSION NUMBER(S): [id number] ORDERING CLINICIAN: TIFFANIE MENDEZ TECHNIQUE: Contiguous axial [...] Audie Gutierrez 06/30/2023 12:06 PM Dictation workstation: [id number] [facility] Work Phone: Radiology Study observation (narrative) [facility] Work Phone: CTA Abdominal vessels and Pe lvis vessels WO and W contrast IVOrdered By: Audie Gutierrez on 06-30-2023 [facility] Work Phone: Comprehensive metabolic 2000 panelOrdered By: Cristina Blevins on 06-30-2023 Albumin [Mass/Vol] 3.8 g/dL 3.5 - 5.0 g/dL [facility] ALP (Bld) [Catalytic activity/Vol] 51 U/L 35 - 125 U/L [facility] ALT [Catalytic activity/Vol] 35 U/L 5 - 40 U/L [facility] Anion gap [Moles/Vol] 13 mmol/L NINF - 19 mmol/L [facility] AST [Catalytic activity/Vol] 52 U/L High 5 - 40 U/L [facility] Bilirubin [Mass/Vol] mg/dL 0.1 - 1.2 mg/dL [facility] Calcium [Mass/Vol] 9.1 mg/dL 8.5 - 10.4 mg/dL [facility] Chloride [Moles/Vol] 90 mmol/L Low 97 - 107 mmol/L [facility] CO2 [Moles/Vol] 19 mmol/L Low 24 - 31 mmol/L [facility] Creatinine [Mass/Vol] 0.70 mg/dL 0.40 - 1.60 mg/dL [facility] eGFR - PINF [facility] Comment on above: Calculations of jessica mated GFR are performed using the 2020 CKD-EPI Study Refit equation without the race variable for the IDMS-Traceable creatinine methods. https://jasn.asnjournals.org/content//ASN.13563976 88 Glucose [Mass/Vol] 920 mg/dL Critically high 65 - 99 mg/d L [facility] Comment on above: Result rechecked Possible IV contamination. Results do not correlate with previous and post results. Patient was redraw . Interpretation and review of laboratory results Abnormal [facility] Potassium [Moles/Vol] 6.8 mmol/L Critically high 3.4 - 5.1 mmol/L [facility] Comment on above: Result rechecked Possible IV contamination. Results do not correlate with previus and post results. Patient was redrawn. Protein [Mass/Vol] 6.3 g/dL 5.9 - 7.9 g/dL Un [facility] Sodium [Moles/Vol] 122 mmol/L Low 133 - 145 mmol/L [facility] Comment on above: Result rechecked Urea nitrogen [Mass/Vol] 15 mg/dL 8 - 25 mg/dL [facility] Comprehensive metabolic 2000 panelon 06-30-2023 Albumin [Mass/Vol] 3.8 g/dL 3.5 - 5.0 g/dL Un [facility] ALP (Bld) [Catalytic activity/Vol] 52 U/L 35 - 125 U/L [facility] ALT [Catalytic activity/Vol] 34 U/L 5 - 40 U/L [facility] Anion gap [Moles/Vol] 10 mmol/L NINF - 19 mmol/L [facility] AST [Catalytic activity/Vol] 43 U/L High 5 - 40 U/L [facility] Bilirubin [Mass/Vol] 0.3 mg/dL 0.1 - 1.2 mg/dL [facility] Calcium [Mass/Vol] 8.8 mg/dL 8.5 - 10.4 mg/dL [facility] Chloride [Moles/Vol] 104 mmol/L 97 - 107 mmol/L [facility] CO2 [Moles/Vol] 23 mmol/L Low 24 - 31 mmol/L [facility] Creatinine [Mass/Vol] 0.60 mg/dL 0.40 - 1.60 mg/dL [facility] eGFR - PINF [facility] Comment on above: Calculations of jessica mated GFR are performed using the 2020 CKD-EPI Study Refit equation without the race variable for the IDMS-Traceable creatinine methods. https://jasn.asnjournals.org/content/early//ASN.28006231 88 Glucose [Mass/Vol] 136 mg/dL High 65 - 99 mg/dL [facility] Interpretation and review of laboratory results Abnormal [facility] Potassium [Moles/Vol] 3.9 mmol/L 3.4 - 5.1 mmol/L [facility] Protein [Mass/Vol] 6.3 g/dL 5.9 - 7.9 g/dL Un [facility] Sodium [Moles/Vol] 137 mmol/L 133 - 145 mmol/L [facility] Urea nitrogen [Mass/Vol] 14 mg/dL 8 - 25 mg/dL [facility] Albumin [Mass/Vol] 3.8 g/dL Normal 3.5-5.0 [facility] Comment on above: Performed By: #### 2 4323-8 ####MELISA Galvan (63530)[facility] ()[address] [place] [address] ALP (Bld) [Catalytic activity/Vol] 52 U/L Normal 35-125 [facility] Comment on above: Performed By: #### 2 4323-8 ####MELISA Galvan ([id number])[facility] ()[address] [place] [facility] [place] [address] ALT [Catalytic activity/Vol] 34 U/L Normal 5-40 [facility] Comment on above: Performed By: #### 2 4323-8 ####MELISA Galvan (15471)[facility] ()[address] [facility] [place] [facility] [place] [address] Anion gap [Moles/Vol] 10 mmol/L Normal <=19 [facility] Comment on above: Performed By: #### 2 432-8 ####MELISA Galvan ([id number])[facility] ()[address] [place] [address] AST [Catalytic activity/Vol] 43 U/L High 5-40 [facility] Comment on above: Performed By: #### 2 4322-8 ####MELISA Galvan (73524)[facility] ()[address] [place] [address] Bilirubin [Mass/Vol] 0.3 mg/dL Normal 0.1-1.2 [facility] Comment on above: Performed By: #### 2 4322-8 ####MELISA Galvan (91349)[facility] ()[address] [place] [address] Calcium [Mass/Vol] 8.8 mg/dL Normal 8.5-10.4 [facility] Comment on above: Performed By: #### 2 4322-8 ####MELISA Galvan (84224)[facility] ()[address] [place] [address] Chloride [Moles/Vol] 104 mmol/L Normal 97-107 [facility] Comment on above: Performed By: #### 2 432-8 ####MELISA Galvan (08226)[facility] ()[address] [place] [address] CO2 [Moles/Vol] 23 mmol/L Low 24-31 [facility] Comment on above: Performed By: #### 2 432-8 ####MELISA Galvan (71363)[facility] ()[address] [place] [address] Creatinine [Mass/Vol] 0.60 mg/dL Normal 0.40-1.60 [facility] Comment on above: Performed By: #### 2 432-8 ####MELISA Galvan (31746)[facility] ()[address] [place] [address] GFR/1.73 sq M.predicted MDRD (S/P/Bld) [Vol rate/Area] mL/min/{1.73_m2} Normal >60 [facility] Comment on above: Result Comment: Calc ulations of estimated GFR are performed using the 2020 CKD-EPI Study Refit equation without the race variable for the IDMS-Traceable creatinine methods. https://jasn.asnjournals.org/content/early//ASN.57297699 88 Performed By: #### 2 4323-8 ####MELISA Galvan (80924)[facility] ()[address] [place] [address] Glucose [Mass/Vol] 136 mg/dL High 65-99 [facility] Comment on above: Performed By: #### 2 4323-8 ####MELISA Galvan (75260)[facility] ()[address] [place] [address] Potassium [Moles/Vol] 3.9 mmol/L Normal 3.4-5.1 [facility] Comment on above: Performed By: #### 2 4323-8 ####MELISA Galvan (67292)[facility] ()[address] [place] [address] Protein [Mass/Vol] 6.3 g/dL Normal 5.9-7.9 [facility] Comment on above: Performed By: #### 2 4323-8 ####MELISA Galvan (07432)[facility] ()[address] [place] [address] Sodium [Moles/Vol] 137 mmol/L Normal 133-145 [facility] Comment on above: Performed By: #### 2 4323-8 ####MELISA Galvan (04736)[facility] ()[address] [place] [address] Urea nitrogen [Mass/Vol] 14 mg/dL Normal 8-25 [facility] Comment on above: Performed By: #### 2 4323-8 ####MELISA Galvan (32146)[facility] ()[address] [place] [address] Extra Urine [place] Tubeon 06-15 Extra Tube Hold for add-ons. [facility] Comment on above: Auto resulted. [facility] Glucose Test strip manual (B ld) [Mass/Vol]on 06-30-2023 Glucose [Mass/Vol] 117 mg/dL High 74 - 99 mg/dL [facility] Interpretation and review of laboratory results Abnormal [facility] Glucose [Mass/Vol] 117 mg/dL High 74-99 [facility] Comment on above: Performed By: #### 2 341-6 ####MELISA Galvan (17034)[facility] ()[address] [place] [address] Glucose [Mass/Vol] 77 mg/dL 74 - 99 mg/dL [facility] Interpretation and review of laboratory results Normal [facility] Glucose [Mass/Vol] 77 mg/dL Normal 74-99 [facility] Comment on above: Performed By: #### 2 341-6 ####MELISA Galvan ([id number])[facility] ()[address] [address] HCG ( test) IA.rapi d Ql (U)Ordered By: Agustin Cedillo on 06-30-2023 HCG ( test) Ql (U) Negative NEGATIVE [facility] Interpretation and review of laboratory results Normal [facility] HCG ( test) IA.rapi d Ql (U)on 06-30-2023 HCG ( test) Ql (U) Negative Normal NEGATIVE [facility] Comment on above: Performed By: #### 8 0384-1 ####MELISA Galvan (59408)[facility] ()[address] [place] [address] Magnesiumon 06-30-2023 Magnesium [Mass/Vol] 1.90 mg/dL 1.60 - 3.10 mg/dL [facility] Magnesium [Mass/Vol] 1.90 mg/dL Normal 1.60-3.10 [facility] Comment on above: Performed By: #### 1 9123-9 ####MELISA Galvan (67890)[facility] ()[address] [place] [address] No Panel Informationon 06-29 Interpretation and review of laboratory results Normal [facility] Phosphateon 06-30-2023 Phosphate [Mass/Vol] 4.4 mg/dL Normal 2.5-4.5 [facility] Comment on above: Performed By: #### 2 777-1 ####MELISA Galvan (74012)[facility] ()[address] [place] [address] Phosphoruson 06-30-2023 Phosphate [Mass/Vol] 4.4 mg/dL 2.5 - 4.5 mg/dL [facility] Urinalysis complete W Reflex Culture panel (U)on 06-30-2023 Appearance (U) Clear Clear [facility] Bilirubin (U) [Mass/Vol] Negative NEGATIVE [facility] Color (U) Light-Yellow Light-Yellow, Yellow, Dark-Yellow [facility] Glucose Auto test strip (U) [Mass/Vol] Normal Normal mg/dL [facility] Interpretation and review of laboratory results Normal [facility] Ketones (U) [Mass/Vol] Negative NEGATIVE mg/dL [facility] Leukocyte esterase Auto test strip Ql (U) Negative NEGATIVE [facility] Nitrite Auto test strip Ql (U) Negative NEGATIVE [facility] pH (U) 6.0 [pH] 5.0, 5.5, 6.0, 6.5, 7.0, 7.5, 8.0 [facility] Protein (U) [Mass/Vol] Negative NEGATIVE, 10 (TRACE), 20 (TRACE) mg/dL [facility] RBC (U) [#/Vol] Negative NEGATIVE [facility] Specific gravity (U) [Rel density] 1.023 1.005 - 1.035 [facility] Urobilinogen (U) [Mass/Vol] Normal Normal mg/dL [facility] Appearance (U) Clear Normal Clear [facility] Comment on above: Performed By: #### 5 8077-9 ####MELISA Galvan (17025)[facility] ()[address] [place] [address] Bilirubin (U) [Mass/Vol] Negative Normal NEGATIVE [facility] Comment on above: Performed By: #### 5 8077-9 ####MELISA Galvan ([id number])[facility] ()[address] [place] [address] Color (U) Light-Yellow Normal Light-Yellow, Yellow, Dark-Yellow [facility] Comment on above: Performed By: #### 5 8077-9 ####MELISA Galvan ([id number])[facility] ()[address] [place] [address] Glucose Auto test strip (U) [Mass/Vol] Normal Normal Normal [facility] Comment on above: Performed By: #### 5 8077-9 ####MELISA Galvan ([id number])[facility] ()[address] [place] [address] Ketones (U) [Mass/Vol] Negative Normal NEGATIVE [facility] Comment on above: Performed By: #### 5 8077-9 ####MELISA Galvan ([id number])[facility] ()[address] [place] [address] Leukocyte esterase Auto test strip Ql (U) Negative Normal NEGATIVE [facility] Comment on above: Performed By: #### 5 8077-9 ####MELISA Galvan (54266)[facility] ()[address] [place] [address] Nitrite Auto test strip Ql (U) Negative Normal NEGATIVE [facility] Comment on above: Performed By: #### 5 8077-9 ####MELISA Galvan (87031)[facility] ()[address] [place] [address] pH (U) 6.0 [pH] Normal 5.0, 5.5, 6.0, 6.5, 7.0, 7.5, 8.0 [facility] Comment on above: Performed By: #### 5 8077-9 ####MELISA Galvan (91878)[facility] ()[address] [place] [address] Protein (U) [Mass/Vol] Negative Normal NEGATIVE, 10 (TRACE), 20 (TRACE) [facility] Comment on above: Performed By: #### 5 8077-9 ####MELISA Galvan ([id number])[facility] ()[address] [place] [address] RBC (U) [#/Vol] Negative Normal NEGATIVE [facility] Comment on above: Performed By: #### 5 8077-9 ####MELISA Galvan (46346)[facility] ()[address] [place] [address] Specific gravity (U) [Rel density] 1.023 Normal 1.005-1.035 [facility] Comment on above: Performed By: #### 5 8077-9 ####MELISA Galvan (90407)[facility] ()[address] [place] [address] Urobilinogen (U) [Mass/Vol] Normal Normal Normal [facility] Comment on above: Performed By: #### 5 8077-9 ####MELISA Galvan ([id number])[facility] ()[address] [place] [address] VASC US MESENTERIC ARTERY DU PLEX COMPLETEon 06-30-2023 VASC US MESENTERIC ARTERY DUPLEX COMPLETE [facility] [address] [place] [address] Vascular Lab Report VASC US MESENTERIC ARTERY DUPLEX COMPLETE Patient Name: ABBEY GARCIA Reading Physician: [id number] Magaña MD Study Date: 06/30/2023 Ordering Provider: [id number] JAMIL GAVIN MRN/PID: [id number] Fellow: Technologist: Leia Degroot RVT Date of /Age: 2 1990 / 33 years Technologist 2: Gender: F Admission Status: Inpatient Location Performed: [facility] 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 CPT Codes: 81869 Mesenteric Duplex scan Pertinent Release of the [...] PSV 89 cm/s KEELY PSV 105 cm/s [id number] Magaña MD Brandy Mgaaña MD Electronically Amended 06/30/2023, 12:15 PM Final (Amended) Normal [facility] Vascular US mesenteric arter y duplex completeon 06-30-2023 Radiology Study observation (narrative) [facility] Work Phone: Basic metabolic 2000 panelon 06-29-2023 Anion gap [Moles/Vol] 12 mmol/L NINF - 19 mmol/L [facility] Calcium [Mass/Vol] 8.6 mg/dL 8.5 - 10.4 mg/dL [facility] Chloride [Moles/Vol] 105 mmol/L 97 - 107 mmol/L [facility] CO2 [Moles/Vol] 21 mmol/L Low 24 - 31 mmol/L [facility] Creatinine [Mass/Vol] 0.60 mg/dL 0.40 - 1.60 mg/dL [facility] eGFR - PINF [facility] Comment on above: Calculations of jessica mated GFR are performed using the 2020 CKD-EPI Study Refit equation without the race variable for the IDMS-Traceable creatinine methods. https://jasn.asnjournals.org/content//ASN.58066996 88 Glucose [Mass/Vol] 106 mg/dL High 65 - 99 mg/dL [facility] Interpretation and review of laboratory results Abnormal [facility] Potassium [Moles/Vol] 3.9 mmol/L 3.4 - 5.1 mmol/L [facility] Sodium [Moles/Vol] 138 mmol/L 133 - 145 mmol/L [facility] Urea nitrogen [Mass/Vol] 16 mg/dL 8 - 25 mg/dL [facility] Anion gap [Moles/Vol] 12 mmol/L Normal <=19 [facility] Comment on above: Performed By: #### V ERAB #### MELISA Galvan ([id number]) [facility] ([facility]) [address] [place] [address] [place] Calcium [Mass/Vol] 8.6 mg/dL Normal 8.5-10.4 [facility] Comment on above: Performed By: #### V ERAB #### MELISA Galvan ([id number]) [facility] ([facility]) [address] [place] [address] [place] Chloride [Moles/Vol] 105 mmol/L Normal 97-107 [facility] Comment on above: Performed By: #### V ERAB #### MELISA Galvan (10505) [facility] ([facility]) [address] [place] [address] [place] CO2 [Moles/Vol] 21 mmol/L Low 24-31 [facility] Comment on above: Performed By: #### V ERAB #### MELISA Galvan () [facility] ([facility]) [address] [place] [address] [place] Creatinine [Mass/Vol] 0.60 mg/dL Normal 0.40-1.60 [facility] Comment on above: Performed By: #### V ERAB #### MELISA Galvan () [facility] ([facility]) [address] [place] [address] [place] GFR/1.73 sq M.predicted MDRD (S/P/Bld) [Vol rate/Area] mL/min/{1.73_m2} Normal >60 [facility] Comment on above: Result Comment: Calc ulations of estimated GFR are performed using the 2020 CKD-EPI Study Refit equation without the race variable for the IDMS-Traceable creatinine methods. https://jasn.asnjournals.org/content/early//ASN.59450426 88 Performed By: #### V ERAB #### MELISA Galvan () [facility] ([facility]) [address] [place] [address] [place] Glucose [Mass/Vol] 106 mg/dL High 65-99 [facility] Comment on above: Performed By: #### V ERAB #### MELISA Galvan () [facility] ([facility]) [address] [place] [address] [place] Potassium [Moles/Vol] 3.9 mmol/L Normal 3.4-5.1 [facility] Comment on above: Performed By: #### V ERAB #### MELISA Galvan () [facility] ([facility]) [address] [place] [address] [place] Sodium [Moles/Vol] 138 mmol/L Normal 133-145 [facility] Comment on above: Performed By: #### V ERAB #### MELISA Galvan (38126) [facility] ([facility]) [address] [place], [place] [address] [place] Urea nitrogen [Mass/Vol] 16 mg/dL Normal 8-25 [facility] Comment on above: Performed By: #### Beth ERAB #### MELISA Galvan ([id number]) [facility] ([facility]) [address] [place] [address] [place] CBC W Auto Differential pane l (Bld)on 06-29-2023 Basophils (Bld) [#/Vol] 0.03 10*3/uL [facility] Basophils/100 WBC (Bld) 0.6 % 0.0 - 2.0 % [facility] Eosinophils (Bld) [#/Vol] 0.01 10*3/uL [facility] Eosinophils/100 WBC (Bld) 0.2 % 0.0 - 6.0 % [facility] Erythrocyte distribution width (RBC) [Ratio] 13.8 % 11.5 - 14.5 % [facility] Hematocrit (Bld) [Volume fraction] 32.2 % Low 36.0 - 46.0 % [facility] Hemoglobin (Bld) [Mass/Vol] 10.3 g/dL Low 12.0 - 16.0 g/dL [facility] Immature granulocytes (Bld) [#/Vol] 0.01 10*3/uL [facility] Immature granulocytes/100 WBC (Bld) 0.2 % 0.0 - 0.9 % [facility] Comment on above: Immature Granulocyte Count (IG) includes promyelocytes, myelocytes and metamyelocytes but does not include bands. Percent differential counts (%) should be interpreted in the context of the absolute cell counts (cells/UL). Interpretation and review of laboratory results Abnormal [facility] Lymphocytes (Bld) [#/Vol] 1.15 10*3/uL Low [facility] Lymphocytes/100 WBC (Bld) 23.1 % 13.0 - 44.0 % [facility] MCH (RBC) [Entitic mass] 31.2 pg 26.0 - 34.0 pg [facility] MCHC (RBC) [Mass/Vol] 32.0 g/dL 32.0 - 36.0 g/dL [facility] MCV (RBC) [Entitic vol] 98 fL 80 - 100 fL [facility] Monocytes (Bld) [#/Vol] 0.20 10*3/uL [facility] Monocytes/100 WBC (Bld) 4.0 % 2.0 - 10.0 % [facility] Neutrophils (Bld) [#/Vol] 3.57 10*3/uL [facility] Comment on above: Percent differential counts (%) should be interpreted in the context of the absolute cell counts (cells/uL). Neutrophils/100 WBC (Bld) 71.9 % 40.0 - 80.0 % [facility] Nucleated RBC/100 WBC (Bld) [Ratio] 0.0 % [facility] Platelets (Bld) [#/Vol] 231 10*3/uL [facility] RBC (Bld) [#/Vol] 3.30 10*6/uL Low [facility] WBC (Bld) [#/Vol] 5.0 10*3/uL [facility] Basophils (Bld) [#/Vol] 0.03 x10*3/uL Normal 0.00-0.10 [facility] Comment on above: Performed By: #### V ERAB #### MELISA Galvan ([id number]) [facility] ([facility]) [id number] [place], [place] [id number] [place] Basophils/100 WBC (Bld) 0.6 % Normal 0.0-2.0 [facility] Comment on above: Performed By: #### V ERAB #### MELISA Galvan ([id number]) [facility] ([facility]) [address] [address] [place] Eosinophils (Bld) [#/Vol] 0.01 x10*3/uL Normal 0.00-0.70 [facility] Comment on above: Performed By: #### V ERAB #### MELISA Galvan ([id number]) [facility] ([facility]) [address] [place] [address] [place] Eosinophils/100 WBC (Bld) 0.2 % Normal 0.0-6.0 [facility] Comment on above: Performed By: #### V ERAB #### MELISA Galvan ([id number]) [facility] ([facility]) [address] [place] [address] [place] Erythrocyte distribution width (RBC) [Ratio] 13.8 % Normal 11.5-14.5 [facility] Comment on above: Performed By: #### V ERAB #### MELISA ALEXANDRO J ([id number]) [facility] ([facility]) [address] [place] [address] [place] Hematocrit (Bld) [Volume fraction] 32.2 % Low 36.0-46.0 [facility] Comment on above: Performed By: #### V ERAB #### MELISA ALEXANDRO Mandy ([id number]) [facility] ([facility]) [address] [place] [address] [place] Hemoglobin (Bld) [Mass/Vol] 10.3 g/dL Low 12.0-16.0 [facility] Comment on above: Performed By: #### V ERAB #### MELISA Galvan ([id number]) [facility] ([facility]) [address] [place] [address] [place] Immature granulocytes (Bld) [#/Vol] 0.01 x10*3/uL Normal 0.00-0.70 [facility] Comment on above: Performed By: #### V ERAB #### MELISA Galvan ([id number]) [facility] ([facility]) [address] [place] [address] [place] Immature granulocytes/100 WBC (Bld) 0.2 % Normal 0.0-0.9 [facility] Comment on above: Result Comment: Janny ture Granulocyte Count (IG) includes promyelocytes, myelocytes and metamyelocytes but does not include bands. Percent differential counts (%) should be interpreted in the context of the absolute cell counts (cells/UL). Performed By: #### V ERAB #### MELISA Galvan () [facility] ([facility]) [address] [place] [address] [place] Lymphocytes (Bld) [#/Vol] 1.15 x10*3/uL Low 1.20-4.80 [facility] Comment on above: Performed By: #### V ERAB #### MELISA Galvan () [facility] ([facility]) [address] [place] [address] US Lymphocytes/100 WBC (Bld) 23.1 % Normal 13.0-44.0 [facility] Comment on above: Performed By: #### V ERAB #### MELISA Galvan () [facility] ([facility]) [address] [place] [address] US MCH (RBC) [Entitic mass] 31.2 pg Normal 26.0-34.0 [facility] Comment on above: Performed By: #### V ERAB #### MELISA Galvan () [facility] ([facility]) [address] [place] [address] US MCHC (RBC) [Mass/Vol] 32.0 g/dL Normal 32.0-36.0 [facility] Comment on above: Performed By: #### V ERAB #### MELISA Galvan () [facility] ([facility]) [address] [place] [address] US MCV (RBC) [Entitic vol] 98 fL Normal 80-100 [facility] Comment on above: Performed By: #### V ERAB #### MELISA Galvan () [facility] [address] [place] [address] US Monocytes (Bld) [#/Vol] 0.20 x10*3/uL Normal 0.10-1.00 [facility] Comment on above: Performed By: #### V ERAB #### MELISA Galvan () [facility] ([facility]) [address] [place] [address] US Monocytes/100 WBC (Bld) 4.0 % Normal 2.0-10.0 [facility] Comment on above: Performed By: #### V ERAB #### MELISA Galvan ([id number]) [facility] ([facility]) [address] [place] [address] US Neutrophils (Bld) [#/Vol] 3.57 x10*3/uL Normal 1.20-7.70 [facility] Comment on above: Result Comment: Perc ent differential counts (%) should be interpreted in the context of the absolute cell counts (cells/uL). Performed By: #### V ERAB #### MELISA Galvan ([id number]) [facility] ([facility]) [address] [place] [address] US Neutrophils/100 WBC (Bld) 71.9 % Normal 40.0-80.0 [facility] Comment on above: Performed By: #### V ERAB #### MELISA Galvan ([id number]) [facility] ([facility]) [address] [place] [address] US Nucleated RBC/100 WBC (Bld) [Ratio] 0.0 /100 WBCs Normal 0.0-0.0 [facility] Comment on above: Performed By: #### V ERAB #### MELISA Galvan ([id number]) [facility] ([facility]) [address] [place] [address] [place] Platelets (Bld) [#/Vol] 231 x10*3/uL Normal 150-450 [facility] Comment on above: Performed By: #### V ERAB #### MELISA Galvan ([id number]) [facility] ([facility]) [address] [place] [address] US RBC (Bld) [#/Vol] 3.30 x10*6/uL Low 4.00-5.20 [facility] Comment on above: Performed By: #### V ERAB #### MELISA Galvan ([id number]) [facility] ([facility]) [address] [place] [address] US WBC (Bld) [#/Vol] 5.0 x10*3/uL Normal 4.4-11.3 [facility] Comment on above: Performed By: #### Beth ERAB #### MELISA Galvan () [facility] ([facility]) [address] [place] [address] US CBC panel Auto (Bld)on 06-28 Erythrocyte distribution width (RBC) [Ratio] 13.7 % 11.5 - 14.5 % [facility] Hematocrit (Bld) [Volume fraction] 32.7 % Low 36.0 - 46.0 % [facility] Hemoglobin (Bld) [Mass/Vol] 11.0 g/dL Low 12.0 - 16.0 g/dL [facility] Interpretation and review of laboratory results Abnormal [facility] MCH (RBC) [Entitic mass] 30.7 pg 26.0 - 34.0 pg [facility] MCHC (RBC) [Mass/Vol] 33.6 g/dL 32.0 - 36.0 g/dL [facility] MCV (RBC) [Entitic vol] 91 fL 80 - 100 fL [facility] Nucleated RBC/100 WBC (Bld) [Ratio] 0.0 % [facility] Platelets (Bld) [#/Vol] 246 10*3/uL [facility] RBC (Bld) [#/Vol] 3.58 10*6/uL Low [facility] WBC (Bld) [#/Vol] 5.2 10*3/uL [facility] Erythrocyte distribution width (RBC) [Ratio] 13.7 % Normal 11.5-14.5 [facility] Comment on above: Performed By: #### Beth ERAB #### MELISA Galvan () [facility] ([facility]) [address] [place] [address] [place] Hematocrit (Bld) [Volume fraction] 32.7 % Low 36.0-46.0 [facility] Comment on above: Performed By: #### Beth ERAB #### MELISA Galvan () [facility] ([facility]) [address] [place] [address] US Hemoglobin (Bld) [Mass/Vol] 11.0 g/dL Low 12.0-16.0 [facility] Comment on above: Performed By: #### V ERAB #### MELISA Galvan ([id number]) [facility] ([facility]) [address] [place] [address] US MCH (RBC) [Entitic mass] 30.7 pg Normal 26.0-34.0 [facility] Comment on above: Performed By: #### V ERAB #### MELISA Galvan () [facility] ([facility]) [address] [place] [address] US MCHC (RBC) [Mass/Vol] 33.6 g/dL Normal 32.0-36.0 [facility] Comment on above: Performed By: #### V ERAB #### MELISA Galvan () [facility] ([facility]) [address] [place] [address] US MCV (RBC) [Entitic vol] 91 fL Normal 80-100 [facility] Comment on above: Performed By: #### V ERAB #### MELISA Galvan () [facility] ([facility]) [address] [place] [address] US Nucleated RBC/100 WBC (Bld) [Ratio] 0.0 /100 WBCs Normal 0.0-0.0 [facility] Comment on above: Performed By: #### V ERAB #### MELISA Galvan ([id number]) [facility] ([facility]) [address] [place] [address] US Platelets (Bld) [#/Vol] 246 x10*3/uL Normal 150-450 [facility] Comment on above: Performed By: #### V ERAB #### MELISA Galvan ([id number]) [facility] ([facility]) [address] [place] [address] US RBC (Bld) [#/Vol] 3.58 x10*6/uL Low 4.00-5.20 [facility] Comment on above: Performed By: #### V ERAB #### MELISA Galvan ([id number]) [facility] ([facility]) [address] [place] [address] US WBC (Bld) [#/Vol] 5.2 x10*3/uL Normal 4.4-11.3 [facility] Comment on above: Performed By: #### V ERAB #### MELISA Galvan ([id number]) [facility] ([facility]) [address] [place] [address] ABDOMEN PELVIS WO IV CONT [facility] 06-29-2023 CT ABDOMEN PELVIS WO IV CONTRAST Interpreted By: Fly West, STUDY: CT ABDOMEN PELVIS WO IV CONTRAST; 06/29/2023 11:09 pm INDICATION: Signs/Symptoms:Abdo kerry pain. COMPARISON: 03/16/2023 ACCESSION NUMBER(S): [id number] ORDERING CLINICIAN: DAVID VALADEZ TECHNIQUE: Axial CT [...] Fly West 06/29/2023 11:53 PM Dictation workstation: [id number] [facility] CT Abdomen WO contraston 1. No acute abdominal or pelvic process. 2. Numerous hepatic hypodense lesions, incompletely characterize, though likely reflecting cysts. Appearance is similar to 03/16/2023. 3. Postsurgical changes as above. Signed by: Fly West 06/29/2023 11:53 PM Dictation workstation: [id number] Interpreted By: Fly West, STUDY: CT ABDOMEN PELVIS WO IV CONTRAST; 06/29/2023 11:09 pm INDICATION: Signs/Symptoms:Abdo kerry pain. COMPARISON: 03/16/2023 ACCESSION NUMBER(S): [id number] ORDERING CLINICIAN: DAVID VALADEZ TECHNIQUE: Axial CT [...] Signs/Symptoms:Abdo kerry pain. COMPARISON: 03/16/2023 ACCESSION NUMBER(S): [id number] ORDERING CLINICIAN: DAVID VALADEZ TECHNIQUE: Axial CT [...] Fly West 06/29/2023 11:53 PM Dictation workstation: [id number] [facility] Work Phone: Radiology Study observation (narrative) [facility] Work Phone: CT Abdomen WO contrastOrdere d By: Fly West on 06-29-2023 [facility] Work Phone: Comprehensive metabolic 2000 panelon 06-29-2023 Albumin [Mass/Vol] 3.8 g/dL Normal 3.5-5.0 [facility] Comment on above: Performed By: #### V ERAB #### MELISA Galvan ([id number]) [facility] [address] [place] [address] US ALP (Bld) [Catalytic activity/Vol] 51 U/L Normal 35-125 [facility] Comment on above: Performed By: #### V ERAB #### MELISA Galvan ([id number]) [facility] ([facility]) [address] [place] [address] US ALT [Catalytic activity/Vol] 35 U/L Normal 5-40 [facility] Comment on above: Performed By: #### V ERAB #### MELISA Galvan ([id number]) [facility] ([facility]) [address] [place] [address] US Anion gap [Moles/Vol] 13 mmol/L Normal <=19 [facility] Comment on above: Performed By: #### V ERAB #### MELISA Galvan ([id number]) [facility] ([facility]) [address] [place] [address] US AST [Catalytic activity/Vol] 52 U/L High 5-40 [facility] Comment on above: Performed By: #### V ERAB #### MELISA Galvan ([id number]) [facility] ([facility]) [address] [place] [address] US Bilirubin [Mass/Vol] mg/dL Normal 0.1-1.2 [facility] Comment on above: Performed By: #### V ERAB #### MELISA Galvan ([id number]) [facility] ([facility]) [address] [place] [address] US Calcium [Mass/Vol] 9.1 mg/dL Normal 8.5-10.4 [facility] Comment on above: Performed By: #### V ERAB #### MELISA Galvan ([id number]) [facility] ([facility]) [address] [place] [address] US Chloride [Moles/Vol] 90 mmol/L Low 97-107 [facility] Comment on above: Performed By: #### V ERAB #### MELISA Galvan ([id number]) [facility] ([facility]) [address] [place] [address] US CO2 [Moles/Vol] 19 mmol/L Low 24-31 [facility] Comment on above: Performed By: #### V ERAB #### MELISA Galvan ([id number]) [facility] ([facility]) [address] [place] [address] US Creatinine [Mass/Vol] 0.70 mg/dL Normal 0.40-1.60 [facility] Comment on above: Performed By: #### V ERAB #### MELISA Galvan ([id number]) [facility] ([facility]) [address] [place] [address] US GFR/1.73 sq M.predicted MDRD (S/P/Bld) [Vol rate/Area] mL/min/{1.73_m2} Normal >60 [facility] Comment on above: Result Comment: Calc ulations of estimated GFR are performed using the 2020 CKD-EPI Study Refit equation without the race variable for the IDMS-Traceable creatinine methods. https://jasn.asnjournals.org/content//ASN.04295060 88 Performed By: #### V ERAB #### MELISA Galvan ([id number]) [facility] ([facility]) [address] [place] [address] US Glucose [Mass/Vol] 920 mg/dL Critically high 65-99 [facility] Comment on above: Result Comment: Resu lt rechecked Possible IV contamination. Results do not correlate with previous and post results. Patient was redraw . Performed By: #### V ERAB #### MELISA Galvan ([id number]) [facility] ([facility]) [address] [place] [address] US Potassium [Moles/Vol] 6.8 mmol/L Critically high 3.4-5.1 [facility] Comment on above: Result Comment: Resu lt rechecked Possible IV contamination. Results do not correlate with previus and post results. Patient was redrawn. Performed By: #### V ERAB #### MELISA Galvan ([id number]) [facility] ([facility]) [address] [place] [address] US Protein [Mass/Vol] 6.3 g/dL Normal 5.9-7.9 [facility] Comment on above: Performed By: #### V ERAB #### MELISA Galvan ([id number]) [facility] ([facility]) [address] [place] [address] US Sodium [Moles/Vol] 122 mmol/L Low 133-145 [facility] Comment on above: Result Comment: Resu lt rechecked Performed By: #### V ERAB #### MELISA Galvan ([id number]) [facility] ([facility]) [address] [place] [address] US Urea nitrogen [Mass/Vol] 15 mg/dL Normal 8-25 [facility] Comment on above: Performed By: #### V ERAB #### MELISA Galvan ([id number]) [facility] ([facility]) [address] [place] [address] US Glucose Test strip manual (B ld) [Mass/Vol]on 06-29-2023 Glucose [Mass/Vol] 117 mg/dL High 74 - 99 mg/dL [facility] Interpretation and review of laboratory results Abnormal [facility] Glucose [Mass/Vol] 117 mg/dL High 74-99 [facility] Comment on above: Performed By: #### V ERAB #### MELISA Galvan ([id number]) [facility] ([facility]) [address] [place] [address] US Home Health Recordson 2023 Home Health Records [id number] 8#1.00TIFF Normal [facility] Auth for Release of Medical Recordson 06-23-2023 Auth for Release of Medical Records [id number] B#1.00TIFF [facility] ED Note-Physicianon 06-23-19 ED Note-Physician [id number] D5#1.00TIFF Normal [facility] ED Note-Physicianon 06-22-19 24 ED Note-Physician [id number] 906#1.00TIFF Normal [facility] ED Note-Physician [id number] 15#1.00TIFF [facility] Lab Reportson 06-22-2023 Lab Reports [id number] 447#1.00TIFF [facility] Provider Letteron 06-22-2023 Provider Letter [facility] RAD - CT Reporton 06-22-20[address] RAD - CT Report [id number] 594#1.00TIFF [facility] Home Health Recordson 2023 Home Health Records [id number] 00#1.00TIFF [facility] ALLIED HEALTHon 06-18-2023 ALLIED HEALTH Normal [facility] CBC W Auto Differential pane l (Bld)on 06-18-2023 Basophils (Bld) [#/Vol] 0.04 10*3/uL Normal <0.11 [facility] Comment on above: Order Comment: Speci men Type: BLOOD SPECIMENOrdering Facility: [facility] Address: [address] [place] [address] Performed By: #### 5 7021-8 ####[facility] [id number] [place] [address] [place] Basophils/100 WBC (Bld) 0.8 % Normal [facility] Comment on above: Order Comment: Speci men Type: BLOOD SPECIMENOrdering Facility: [facility] Address: [address] [place] [address] Performed By: #### 5 7021-8 ####[facility]ORATORYCLIA [id number] [place] [address] [place] Differential cell count method Nom (Bld) Auto Normal [facility] Comment on above: Order Comment: Speci men Type: BLOOD SPECIMENOrdering Facility: [facility] Address: [address] [place] [address] Performed By: #### 5 7021-8 ####[facility]ORATORYCLIA [id number] [place] [address] [place] Eosinophils (Bld) [#/Vol] 0.13 10*3/uL Normal <0.46 [facility] Comment on above: Order Comment: Speci men Type: BLOOD SPECIMENOrdering Facility: [facility] Address: [address] [place] [address] Performed By: #### 5 7021-8 ####[facility]ORYCLIA [id number] [place] [address] [place] Eosinophils/100 WBC (Bld) 2.8 % Normal [facility] Comment on above: Order Comment: Speci men Type: BLOOD SPECIMENOrdering Facility: [facility] Address: [address] [place] [address] Performed By: #### 5 7021-8 ####[facility]ATORYCLIA [id number] [place] [address] [place] Erythrocyte distribution width (RBC) [Ratio] 13.3 % Normal 11.5-15.0 [facility] Comment on above: Order Comment: Speci men Type: BLOOD SPECIMENOrdering Facility: [facility] Address: [address] [place] [address] Performed By: #### 5 7021-8 ####[facility]ORATORYCLIA [id number] [place] [address] [place] Hematocrit (Bld) [Volume fraction] 34.6 % Low 36.0-46.0 [facility] Comment on above: Order Comment: Speci men Type: BLOOD SPECIMENOrdering Facility: [facility] Address: [address] [place] [address] Performed By: #### 5 7021-8 ####[facility]ATORYCLIA [id number] [place] [id number] [place] Hemoglobin (Bld) [Mass/Vol] 12.0 g/dL Normal 11.5-15.5 [facility] Comment on above: Order Comment: Speci men Type: BLOOD SPECIMENOrdering Facility: [facility] Address: [address] [place] [address] Performed By: #### 5 7021-8 ####[facility]ORATORYCLIA [id number] [place] [address] [place] Immature granulocytes (Bld) [#/Vol] 10*3/uL Normal <0.10 [facility] Comment on above: Order Comment: Speci men Type: BLOOD SPECIMENOrdering Facility: [facility] Address: [address] [place] [address] Performed By: #### 5 7021-8 ####[facility]ORATORYCLIA [id number] [place] [address] [place] Immature granulocytes/100 WBC (Bld) 0.2 % Normal [facility] Comment on above: Order Comment: Speci men Type: BLOOD SPECIMENOrdering Facility: [facility] Address: [address] [place] [address] Performed By: #### 5 7021-8 ####[facility]ATORYCLIA [id number] [place] [id number] [place] Lymphocytes (Bld) [#/Vol] 1.90 10*3/uL Normal 1.00-4.00 [facility] Comment on above: Order Comment: Speci men Type: BLOOD SPECIMENOrdering Facility: [facility] Address: [address] [place] [address] Performed By: #### 5 7021-8 ####[facility]ATORYCLIA [id number] [place] [id number] [place] Lymphocytes/100 WBC (Bld) 40.3 % Normal [facility] Comment on above: Order Comment: Speci men Type: BLOOD SPECIMENOrdering Facility: [facility] Address: [address] [place] [address] Performed By: #### 5 7021-8 ####[facility]ORATORYCLIA [id number] [place] [address] [place] MCH (RBC) [Entitic mass] 30.9 pg Normal 26.0-34.0 [facility] Comment on above: Order Comment: Speci men Type: BLOOD SPECIMENOrdering Facility: [facility] Address: [address] [place] [address] Performed By: #### 5 7021-8 ####[facility] LABORATORYCLIA [id number] [place] [address] [place] MCHC (RBC) [Mass/Vol] 34.7 g/dL Normal 30.5-36.0 [facility] Comment on above: Order Comment: Speci men Type: BLOOD SPECIMENOrdering Facility: [facility] Address: [address] [place] [address] Performed By: #### 5 7021-8 ####[facility]ATORYCLIA [id number] [place] [address] [place] MCV (RBC) [Entitic vol] 89.2 fL Normal 80.0-100.0 [facility] Comment on above: Order Comment: Speci men Type: BLOOD SPECIMENOrdering Facility: [facility] Address: [address] [place] [address] Performed By: #### 5 7021-8 ####[facility]ORATORYCLIA [id number] [place] [address] [place] Monocytes (Bld) [#/Vol] 0.24 10*3/uL Normal <0.87 [facility] Comment on above: Order Comment: Speci men Type: BLOOD SPECIMENOrdering Facility: [facility] Address: [address] [place] [address] Performed By: #### 5 7021-8 ####[facility]ORATORYCLIA [id number] [place] [id number] [place] Monocytes/100 WBC (Bld) 5.1 % Normal [facility] Comment on above: Order Comment: Speci men Type: BLOOD SPECIMENOrdering Facility: [facility] Address: [address] [place] [address] Performed By: #### 5 7021-8 ####[facility]ATORYCLIA [id number] [place] [id number] [place] Neutrophils (Bld) [#/Vol] 2.39 10*3/uL Normal 1.45-7.50 [facility] Comment on above: Order Comment: Speci men Type: BLOOD SPECIMENOrdering Facility: [facility] Address: [address] [place] [address] Performed By: #### 5 7021-8 ####[facility]ATORYCLIA [id number] [place] [address] [place] Neutrophils/100 WBC (Bld) 50.8 % Normal [facility] Comment on above: Order Comment: Speci men Type: BLOOD SPECIMENOrdering Facility: [facility] Address: [address] [place] [address] Performed By: #### 5 7021-8 ####[facility]ATORYCLIA [id number] [place] [address] [place] Nucleated RBC (Bld) [#/Vol] 10*3/uL Normal <0.01 [facility] Comment on above: Order Comment: Speci men Type: BLOOD SPECIMENOrdering Facility: [facility] Address: [address] [place] [address] Performed By: #### 5 7021-8 ####[facility]ATORYCLIA [id number] [place] [id number] [place] Nucleated RBC/100 WBC (Bld) [Ratio] 0.0 /100 WBC Normal [facility] Comment on above: Order Comment: Speci men Type: BLOOD SPECIMENOrdering Facility: [facility] Address: [address] [place] [address] Performed By: #### 5 7021-8 ####[facility]ORATORYCLIA [id number] [place] [id number] [place] Platelet mean volume (Bld) [Entitic vol] 11.4 fL Normal 9.0-12.7 [facility] Comment on above: Order Comment: Speci men Type: BLOOD SPECIMENOrdering Facility: [facility] Address: [address] [place] [address] Performed By: #### 5 7021-8 ####[facility]ORATORYCLIA [id number] [place] [id number] [place] Platelets (Bld) [#/Vol] 233 10*3/uL Normal 150-400 [facility] Comment on above: Order Comment: Speci men Type: BLOOD SPECIMENOrdering Facility: [facility] Address: [address] [place] [address] Performed By: #### 5 7021-8 ####[facility]ORATORYCLIA [id number] [place] [id number] [place] RBC (Bld) [#/Vol] 3.88 10*6/uL Low 3.90-5.20 [facility] Comment on above: Order Comment: Speci men Type: BLOOD SPECIMENOrdering Facility: [facility] Address: [address] [place] [address] Performed By: #### 5 7021-8 ####[facility] LABORATORYCLIA [id number] [place] [id number] [place] WBC (Bld) [#/Vol] 4.71 10*3/uL Normal 3.70-11.00 [facility] Comment on above: Order Comment: Speci men Type: BLOOD SPECIMENOrdering Facility: [facility] Address: [address] [place] [address] Performed By: #### 5 7021-8 ####[place] [facility]ORYCL[facility] [id number] [place] [id number] [place] CNOVon 06-18-2023 CNOV Normal [facility] CONSULTon 06-18-2023 CONSULT Normal [facility] CT ABD/PEL W IVCONon 024 CT ABD/PEL W IVCON Normal [facility] Comprehensive metabolic 2000 panelon 06-18-2023 Albumin [Mass/Vol] 4.5 g/dL Normal 3.9-4.9 [facility] Comment on above: Order Comment: Speci men Type: BLOOD SPECIMENOrdering Facility: [facility] Address: [address] [place] [address] Performed By: #### 1 9123-9, 3040-3, 47092-8 ####[facility] LABORATORYCLIA [id number] [place] [address] [place] ALP [Catalytic activity/Vol] 58 U/L Normal 34-123 [facility] Comment on above: Order Comment: Speci men Type: BLOOD SPECIMENOrdering Facility: [facility] Address: [address] [place] [address] Performed By: #### 1 9123-9, 3040-3, 83853-8 ####[facility]ORATORYCLIA [id number] [place] [id number] [place] ALT [Catalytic activity/Vol] 13 U/L Normal 7-38 [facility] Comment on above: Order Comment: Speci men Type: BLOOD SPECIMENOrdering Facility: [facility] Address: [address] [place] [address] Performed By: #### 1 9123-9, 3040-3, 90641-8 ####[facility]ORATORYCLIA [id number] [place] [address] [place] Anion gap [Moles/Vol] 13 mmol/L Normal 9-18 [facility] Comment on above: Order Comment: Speci men Type: BLOOD SPECIMENOrdering Facility: [facility] Address: [address] [place] [address] Performed By: #### 1 9123-9, 3040-3, 20519-9 ####[facility]ORATORYCLIA [id number] [place] [address] [place] AST [Catalytic activity/Vol] 31 U/L Normal 13-35 [facility] Comment on above: Order Comment: Speci men Type: BLOOD SPECIMENOrdering Facility: [facility] Address: [address] [place] [address] Performed By: #### 1 9123-9, 3040-3, 00312-6 ####[facility]ORATORYCLIA [id number] [place] [address] [place] Bilirubin [Mass/Vol] 0.4 mg/dL Normal 0.2-1.3 [facility] Comment on above: Order Comment: Speci men Type: BLOOD SPECIMENOrdering Facility: [facility] Address: [address] [place] [address] Performed By: #### 1 9123-9, 0-3, 91574-8 ####[facility] LABORATORYCLIA [id number] [place] [address] [place] Calcium [Mass/Vol] 9.0 mg/dL Normal 8.5-10.2 [facility] Comment on above: Order Comment: Speci men Type: BLOOD SPECIMENOrdering Facility: [facility] Address: [address] [place] [address] Performed By: #### 1 9123-9, 0-3, 92606-3 ####[facility] LABORATORYCLIA [id number] [place] [address] [place] Chloride [Moles/Vol] 103 mmol/L Normal 97-105 [facility] Comment on above: Order Comment: Speci men Type: BLOOD SPECIMENOrdering Facility: [facility] Address: [address] [place] [address] Performed By: #### 1 9123-9, 0-3, 24668-5 ####[facility] LABORATORYCLIA [id number] [place] [address] [place] CO2 [Moles/Vol] 22 mmol/L Normal 22-30 [facility] Comment on above: Order Comment: Speci men Type: BLOOD SPECIMENOrdering Facility: [facility] Address: [address] [place] [address] Performed By: #### 1 9123-9, 3040-3, 96908-5 ####[facility] LABORATORYCLIA [id number] [place] [address] [place] [facility] Creatinine [Mass/Vol] 0.83 mg/dL Normal 0.58-0.96 [facility] Comment on above: Order Comment: Geraldo marrero Type: BLOOD SPECIMENOrdering Facility: [facility] Address: [address] [place] [address] Performed By: #### 1 9123-9, 3040-3, 12375-5 ####[facility]ORATORYCLIA [id number] [place] [id number] [facility] Creatinine and Glomerular filtration rate.predicted panel (S/P/Bld) 95 mL/min/1.73m??? Normal >=60 [facility] Comment on above: Order Comment: Geraldo marrero Type: BLOOD SPECIMENOrdering Facility: [facility] Address: [address] [place] [address] Result Comment: Jessica mated Glomerular Filtration Rate [...] GFR. Performed By: #### 1 9123-9, 3040-3, 42592-8 ####[facility]ORATORYCLIA [id number] [place] [address] [place] Glucose [Mass/Vol] 77 mg/dL Normal 74-99 [facility] Comment on above: Order Comment: Geraldo marrero Type: BLOOD SPECIMENOrdering Facility: [facility] Address: [address] [place] [address] Result Comment: The [place] Diabetes Association (ADA) provides guidance for cutoff [...] Standards of Medical Care in Diabetes 2016, [place] [employer]. Diabetes Care. 2016.39(Suppl 1). Performed By: #### 1 9123-9, 3039-3, 69346-6 ####[facility] LABORATORYCLIA [id number] [place] [address] [place] Potassium [Moles/Vol] 3.4 mmol/L Low 3.7-5.1 [facility] Comment on above: Order Comment: Speci men Type: BLOOD SPECIMENOrdering Facility: [facility] Address: [address] [place] [address] Performed By: #### 1 9123-9, 3039-3, ####[facility] LABORATORYCLIA [id number] [place] [address] [place] Protein [Mass/Vol] 7.6 g/dL Normal 6.3-8.0 [facility] Comment on above: Order Comment: Speci men Type: BLOOD SPECIMENOrdering Facility: [facility] Address: [address] [place] [address] Performed By: #### 1 9123-9, 3, ####[facility] LABORATORYCLIA [id number] [place] [address] [place] Sodium [Moles/Vol] 138 mmol/L Normal 136-144 [facility] Comment on above: Order Comment: Speci men Type: BLOOD SPECIMENOrdering Facility: [facility] Address: [address] [place] [id number] Performed By: #### 1 9123-9, 0-3, 73266-3 ####[facility] LABORATORYCLIA [id number] [place] [address] [place] Urea nitrogen [Mass/Vol] 12 mg/dL Normal 7-21 [facility] Comment on above: Order Comment: Speci men Type: BLOOD SPECIMENOrdering Facility: [facility] Address: [address] [place] [address] Performed By: #### 1 9123-9, 0-3, 39944-9 ####[facility] LABORATORYCLIA [id number] [place] [id number] [place] ECG COMPLETEon 06-18-2023 ECG COMPLETE Normal [facility] ED NOTEon 06-18-2023 ED NOTE Normal [facility] ED NOTE HNO ID: [id number] Author: HIEU HERNANDEZ RN Service: ? Author Type: Registered Nurse Type: ED Notes Filed: 06/18/2023 19:05 Note Text: Patient verbalized understanding of discharge instructions and follow up care. Normal [facility] ED NOTE HNO ID: [id number] Author: HIEU HERNANDEZ RN Service: ? Author Type: Registered Nurse Type: ED Notes Filed: 06/18/2023 18:38 Note Text: Long catheter with leg bag inserted and orange juice given via peg tube given per Earnest INMAN verbal order. Normal [facility] ED PROV NOTEon 06-18-2023 ED PROV NOTE [facility] HCG QUALITATIVEon 06-18-2023 HCG, QUALITATIVE Negative Normal Negative [facility] Comment on above: Order Comment: Speci men Type: BLOOD SPECIMENOrdering Facility: [facility] Address: [address] [place] [address] Performed By: #### H CG ####[facility] LABORATORYCLIA [id number] [place] [address] [place] Lipase SerPl-cCncon 06-18-19 24 Lipase [Catalytic activity/Vol] 31 U/L Normal 16-61 [facility] Comment on above: Order Comment: Speci men Type: BLOOD SPECIMENOrdering Facility: [facility] Address: [address] [place] [address] Performed By: #### 1 9123-9, 3040-3, 45063-0 ####[facility] LABORATORYCLIA [id number] [place] [address] [place] Magnesium SerPl-mCncon 06-17 Magnesium [Mass/Vol] 2.0 mg/dL Normal 1.7-2.3 [facility] Comment on above: Order Comment: Speci men Type: BLOOD SPECIMENOrdering Facility: [facility] Address: [address] [place] [address] Performed By: #### 1 9123-9, 3040-3, 67821-7 ####[facility] LABORATORYCLIA [id number] [address] Urinalysis complete panel (U )on 06-18-2023 Bacteria LM.HPF (Urine sed) [#/Area] Rare Abnormal None Seen [facility] Comment on above: Order Comment: Speci men Type: URINE SPECIMENOrdering Facility: [facility] Address: [address] [place] [address] Performed By: #### 2 4356-8 ####[facility]ORATORYCLIA [id number] [place] [address] [place] Bilirubin Ql (U) Negative Normal Negative [facility] Comment on above: Order Comment: Speci men Type: URINE SPECIMENOrdering Facility: [facility] Address: [address] [place] [address] Performed By: #### 2 4356-8 ####[facility] [facility]ORATORYCLIA [id number] [place] [address] [place] Clarity (Unsp spec) Clear Normal Clear [facility] Comment on above: Order Comment: Speci men Type: URINE SPECIMENOrdering Facility: [facility] Address: [address] [place] [address] Performed By: #### 2 4356-8 ####[facility]ATORYCLIA [id number] [place] [address] [place] Color (U) Light Yellow Normal Yellow [facility] Comment on above: Order Comment: Speci men Type: URINE SPECIMENOrdering Facility: [facility] Address: [address] [place] [address] Performed By: #### 2 4356-8 ####[facility]ORATORYCLIA [id number] [address] [place] Epithelial cells LM.HPF (Urine sed) [#/Area] Few Normal [facility] Comment on above: Order Comment: Speci men Type: URINE SPECIMENOrdering Facility: [facility] Address: [address] [place] [address] Performed By: #### 2 4356-8 ####[facility] LABORATORYCLIA [id number] [place] [address] [place] Glucose Test strip (U) [Mass/Vol] Negative Normal Trace, Negative [facility] Comment on above: Order Comment: Speci men Type: URINE SPECIMENOrdering Facility: [facility] Address: [address] [place] [address] Performed By: #### 2 4356-8 ####[facility] LABORATORYCLIA [id number] [place] [address] [place] Hemoglobin Ql (U) Negative Normal Negative, Trace [facility] Comment on above: Order Comment: Speci men Type: URINE SPECIMENOrdering Facility: [facility] Address: [address] [place] [address] Performed By: #### 2 4356-8 ####[facility] LABORATORYCLIA [id number] [place] [address] [place] Ketones Ql (U) Negative Normal Negative, Trace [facility] Comment on above: Order Comment: Speci men Type: URINE SPECIMENOrdering Facility: [facility] Address: [address] [place] [address] Performed By: #### 2 4356-8 ####[facility] LABORATORYCLIA [id number] [address] STATES [facility] Leukocyte esterase Test strip Ql (U) Negative Normal Negative, 25 Patito/uL [facility] Comment on above: Order Comment: Speci men Type: URINE SPECIMENOrdering Facility: [facility] Address: [address] [place] [address] Performed By: #### 2 4356-8 ####[facility] LABORATORYCLIA [id number] [address] [place] Nitrite Ql (U) Negative Normal Negative [facility] Comment on above: Order Comment: Speci men Type: URINE SPECIMENOrdering Facility: [facility] Address: [address] [place] [address] Performed By: #### 2 4356-8 ####[facility]ATORYCLIA [id number] [place] [id number] [place] pH (U) 7.5 [pH] Normal 5.0-8.0 [facility] Comment on above: Order Comment: Speci men Type: URINE SPECIMENOrdering Facility: [facility] Address: [address] [place] [address] Performed By: #### 2 4356-8 ####[facility] [facility]ORATORYCLIA [id number] [place] [address] [place] Protein (U) [Mass/Vol] Negative Normal Trace, Negative [facility] Comment on above: Order Comment: Speci men Type: URINE SPECIMENOrdering Facility: [facility] Address: [address] [place] [address] Performed By: #### 2 4356-8 ####[facility] HOSPITALIA [id number] [place] [address] [place] RBC LM.HPF (Urine sed) [#/Area] 0-3 /HPF Normal 0-3 /HPF [facility] Comment on above: Order Comment: Speci men Type: URINE SPECIMENOrdering Facility: [facility] Address: [address] [place] [address] Performed By: #### 2 4356-8 ####[facility]ORATORYCLIA [id number] [place] [id number] [place] Specific gravity (U) [Rel density] 1.009 Normal 1.005-1.030 [facility] Comment on above: Order Comment: Speci men Type: URINE SPECIMENOrdering Facility: [facility] Address: [address] [place] [address] Performed By: #### 2 4356-8 ####[facility] [facility]ORATORYCLIA [id number] [address] [place] Urobilinogen Ql (U) Normal Normal Normal [facility] Comment on above: Order Comment: Speci men Type: URINE SPECIMENOrdering Facility: [facility] Address: [address] [place] [address] Performed By: #### 2 4356-8 ####[facility]ATORYCLIA [id number] [place] [id number] [place] WBC LM.HPF (Urine sed) [#/Area] 0-5 /HPF Normal 0-5 /HPF [facility] Comment on above: Order Comment: Speci men Type: URINE SPECIMENOrdering Facility: [facility] Address: [facility] [place] [address] Performed By: #### 2 4356-8 ####[facility] [facility]ORATORYCLIA [id number] [place] [address] [place] CNPNon 06-17-2023 CNPN Normal [facility] Home Health Recordson 2023 Home Health Records [id number] B4#1.00TIFF Normal [facility] Physician Referralon 024 Physician Referral [id number] 101#1.00TIFF Normal [facility] Provider Letteron 06-16-2023 Provider Letter Normal [facility] CNPNon 06-15-2023 CNPN Normal [facility] ED Note-Physicianon 06-15-19 24 ED Note-Physician [id number]. [id number] D0#1.00TIFF Normal [facility] Outside Hospital Correspo ndenceon 06-15-2023 Outside [facility] Correspondence [id number]. [id number] A2#1.00TIFF Normal [facility] Physician Referralon 024 Physician Referral [id number] 38#1.00TIFF Normal [facility] RAD - CT Reporton 06-15-2023 RAD - CT Report [id number] F9#1.00TIFF Normal [facility] Transfer Inon 06-15-2023 Transfer In [id number] 80#1.00TIFF Normal [facility] Ambulatory Visit Summaryon 0 06-14-2023 Ambulatory Visit Summary Normal [address] [place] [address]- \.br\ Medications\.br\ What How Much When Why [...] for choosing us for your care.\.br\ \.br\ [facility] Auth for Release of Medical Recordson 06-14-2023 Auth for Release of Medical Records [id number] E3#1.00TIFF Normal [facility] CNPNon 06-14-2023 CNPN Normal [facility] Family Medicine Office/Clini c Noteon 06-14-2023 Family Medicine Office/Clinic Note Normal [facility] Comment on above: Result Comment: Elec tronically Signed By: Jaquan Paula\.br\Date and Time Signed: 06/14/23 13:22 EDT Home Health Recordson 2023 Home Health Records [id number] E4#1.00TIFF Normal [facility] Population Healthon 06-11-19 Population Health Normal [facility] Home Health Recordson 2023 Home Health Records [id number] 22#1.00TIFF Normal [facility] Retail - Clinical Noteon Retail - Clinical Note [id number] F2#1.00TIFF Normal [facility] ALLIED HEALTHon 06-09-2023 ALLIED HEALTH Normal [facility] Basic metabolic 2000 panelon 06-09-2023 Anion gap [Moles/Vol] 7 mmol/L Low 9-18 [facility] Comment on above: Order Comment: Speci men Type: BLOOD SPECIMENOrdering Facility: [facility] Address: [address] [place] [address] Performed By: #### 2 4321-2 ####[facility] LABORATORYCLIA [id number] [place] [address] [place] Calcium [Mass/Vol] 8.6 mg/dL Normal 8.5-10.2 [facility] Comment on above: Order Comment: Speci men Type: BLOOD SPECIMENOrdering Facility: [facility] Address: [address] [place] [address] Performed By: #### 2 4321-2 ####[facility] LABORATORYCLIA [id number] [place] [address] [place] Chloride [Moles/Vol] 107 mmol/L High 97-105 [facility] Comment on above: Order Comment: Speci men Type: BLOOD SPECIMENOrdering Facility: [facility] Address: [address] [place] [address] Performed By: #### 2 4321-2 ####[facility] LABORATORYCLIA [id number] [place] [address] [place] CO2 [Moles/Vol] 24 mmol/L Normal 22-30 [facility] Comment on above: Order Comment: Speci men Type: BLOOD SPECIMENOrdering Facility: [facility] Address: [address] [place] [address] Performed By: #### 2 4321-2 ####[facility] LABORATORYCLIA [id number] [facility] [address] [place] Creatinine [Mass/Vol] 0.68 mg/dL Normal 0.58-0.96 [facility] Comment on above: Order Comment: Speci men Type: BLOOD SPECIMENOrdering Facility: [facility] Address: [address] [place] [address] Performed By: #### 2 4321-2 ####[facility] LABORATORYCLIA [id number] [facility] [place] [address] [facility] Creatinine and Glomerular filtration rate.predicted panel (S/P/Bld) 117 mL/min/1.73m??? Normal >=60 [facility] Comment on above: Order Comment: Speci men Type: BLOOD SPECIMENOrdering Facility: [facility] Address: [address] [place] [address] Result Comment: Jessica mated Glomerular Filtration Rate [...] actual GFR. Performed By: #### 2 4321-2 ####[facility] LABORATORYCLIA [id number] [facility] [place] [address] [place] Glucose [Mass/Vol] 89 mg/dL Normal 74-99 [facility] Comment on above: Order Comment: Speci men Type: BLOOD SPECIMENOrdering Facility: [facility] Address: [address] [place] [address] Result Comment: The [place] Diabetes Association (ADA) provides guidance for cutoff [...] Standards of Medical Care in Diabetes 2016, [place] [employer]. Diabetes Care. 2016.39(Suppl 1). Performed By: #### 2 4321-2 ####[facility]OSPITALIA [id number] [place] [address] [place] Potassium [Moles/Vol] 4.1 mmol/L Normal 3.7-5.1 [facility] Comment on above: Order Comment: Speci men Type: BLOOD SPECIMENOrdering Facility: [facility] Address: [address] [place] [address] Performed By: #### 2 4321-2 ####[facility]OSPITALIA [id number] [place] [address] [place] Sodium [Moles/Vol] 138 mmol/L Normal 136-144 [facility] Comment on above: Order Comment: Lyssai men Type: BLOOD SPECIMENOrdering Facility: [facility] Address: [address] [place] [address] Performed By: #### 2 4321-2 ####[facility]PITALIA [id number] [place] [address] [place] Urea nitrogen [Mass/Vol] 10 mg/dL Normal 7-21 [facility] Comment on above: Order Comment: Speci men Type: BLOOD SPECIMENOrdering Facility: [facility] Address: [address] [place] [address] Performed By: #### 2 4321-2 ####[facility]PITALIA [id number] [place] [address] [place] CASE MANAGEMon 06-09-2023 CASE MANAGEM Normal [facility] CNDSon 06-09-2023 CNDS Normal [facility] CONSULT PROGon 06-08-2023 CONSULT PROG Normal [facility] l TOXICOLOGY SCREEN, ROUTINE U RINEon 06-08-2023 Amphetamines Confirm (U) [Mass/Vol] Negative Normal Negative [facility] Comment on above: Order Comment: Speci men Type: URINE SPECIMENOrdering Facility: [facility] Address: [address] [place] [address] Result Comment: Cuto ff threshold at 1000 ng/mL. Performed By: #### U TOX2 ####[facility] LABORATORYCLIA [id number] [place] [address] [place] BARBITURATES, URINE Negative Normal Negative [facility] Comment on above: Order Comment: Speci men Type: URINE SPECIMENOrdering Facility: [facility] Address: [address] [place] [address] Result Comment: Cuto ff threshold at 200 ng/mL. Performed By: #### U TOX2 ####[facility] LABORATORYIA [id number] [place] [address] [place] BENZODIAZEPINES, UR Negative Normal Negative [facility] Comment on above: Order Comment: Speci men Type: URINE SPECIMENOrdering Facility: [facility] Address: [address] [place] [address] Result Comment: Cuto ff threshold at 200 ng/mL. Performed By: #### U TOX2 ####[facility] LABORATORYCLIA [id number] [place] [id number] [place] Cannabinoids Screen Ql (U) Negative Normal Negative [facility] Comment on above: Order Comment: Speci men Type: URINE SPECIMENOrdering Facility: [facility] Address: [address] [place] [address] Result Comment: Cuto ff threshold at 50 ng/mL. Performed By: #### U TOX2 ####[facility] LABORATORYCLIA [id number] [place] [address] [place] Cocaine Ql (U) Negative Normal Negative [facility] Comment on above: Order Comment: Speci men Type: URINE SPECIMENOrdering Facility: [facility] Address: [address] [place] [address] Result Comment: Cuto ff threshold at 300 ng/mL. Performed By: #### U TOX2 ####[facility]PITALIA [id number] [place] [address] [place] Ethanol (U) [Mass/Vol] <11 Normal <11 [facility] Comment on above: Order Comment: Speci men Type: URINE SPECIMENOrdering Facility: [facility] Address: [address] [place] [address] Performed By: #### U TOX2 ####[facility] LABORATORYIA [id number] [place] [address] [place] Opiates Screen Ql (U) Negative Normal Negative [facility] Comment on above: Order Comment: Speci men Type: URINE SPECIMENOrdering Facility: [facility] Address: [address] [place] [address] Result Comment: Cuto ff threshold at 300 ng/mL. Performed By: #### U TOX2 ####[facility]PITALIA [id number] [address] [place] oxyCODONE cutoff Screen (U) [Mass/Vol] Negative Normal Negative [facility] Comment on above: Order Comment: Speci men Type: URINE SPECIMENOrdering Facility: [facility] Address: [address] [place] [address] Result Comment: Cuto ff threshold at 100 ng/mL. Performed By: #### U TOX2 ####[facility] LABORATORYIA [id number] [place] [address] [place] Phencyclidine Ql (U) Negative Normal Negative [facility] Comment on above: Order Comment: Speci men Type: URINE SPECIMENOrdering Facility: [facility] Address: [address] [place] [address] Result Comment: Cuto ff threshold at 25 ng/mL. Performed By: #### U TOX2 ####[facility] LABORATORYIA [id number] [place] [address] [place] Basic metabolic 2000 panelon 06-07-2023 Anion gap [Moles/Vol] 9 mmol/L Normal 9-18 [facility] Comment on above: Order Comment: Speci men Type: BLOOD SPECIMENOrdering Facility: [facility] Address: [address] [place] [address] Performed By: #### 2 4321-2 ####[facility] LABORATORYCLIA [id number] [place] [address] [place] Calcium [Mass/Vol] 8.7 mg/dL Normal 8.5-10.2 [facility] Comment on above: Order Comment: Speci men Type: BLOOD SPECIMENOrdering Facility: [facility] Address: [address] [place] [address] Performed By: #### 2 4321-2 ####[facility] LABORATORYIA [id number] [place] [id number] [place] Chloride [Moles/Vol] 108 mmol/L High 97-105 [facility] Comment on above: Order Comment: Speci men Type: BLOOD SPECIMENOrdering Facility: [facility] Address: [address] [place] [address] Performed By: #### 2 4321-2 ####[facility] [id number] [place] [address] [place] CO2 [Moles/Vol] 23 mmol/L Normal 22-30 [facility] Comment on above: Order Comment: Speci men Type: BLOOD SPECIMENOrdering Facility: [facility] Address: [address] [place] [address] Performed By: #### 2 4321-2 ####[facility] LABORATORYIA [id number] [place] [id number] [place] Creatinine [Mass/Vol] 0.68 mg/dL Normal 0.58-0.96 [facility] Comment on above: Order Comment: Speci men Type: BLOOD SPECIMENOrdering Facility: [facility] Address: [address] [place] [address] Performed By: #### 2 4321-2 ####[facility] [id number] [facility] [place] [address] [place] Creatinine and Glomerular filtration rate.predicted panel (S/P/Bld) 117 mL/min/1.73m??? Normal >=60 [facility] Comment on above: Order Comment: Specmichael marrero Type: BLOOD SPECIMENOrdering Facility: [facility] Address: [address] [place] [address] Result Comment: Jessica mated Glomerular Filtration Rate [...] actual GFR. Performed By: #### 2 4321-2 ####[facility] [id number] [facility] [place] [address] [place] Glucose [Mass/Vol] 98 mg/dL Normal 74-99 [facility] Comment on above: Order Comment: Geraldo marrero Type: BLOOD SPECIMENOrdering Facility: [facility] Address: [address] [place] [address] Result Comment: The [place] Diabetes Association (ADA) provides guidance for cutoff [...] Standards of Medical Care in Diabetes 2016, [place] [employer]. Diabetes Care. 2016.39(Suppl 1). Performed By: #### 2 4321-2 ####[facility] [id number] [facility] [place] [address] [place] Potassium [Moles/Vol] 4.2 mmol/L Normal 3.7-5.1 [facility] Comment on above: Order Comment: Speci men Type: BLOOD SPECIMENOrdering Facility: [facility] Address: [address] [place] [address] Performed By: #### 2 4321-2 ####[facility] LABORATORYCLIA [id number] [place] [address] [place] Sodium [Moles/Vol] 140 mmol/L Normal 136-144 [facility] Comment on above: Order Comment: Speci men Type: BLOOD SPECIMENOrdering Facility: [facility] Address: [address] [place] [address] Performed By: #### 2 4321-2 ####[facility] LABORATORYIA [id number] [place] [address] [place] Urea nitrogen [Mass/Vol] 9 mg/dL Normal 7-21 [facility] Comment on above: Order Comment: Speci men Type: BLOOD SPECIMENOrdering Facility: [facility] Address: [address] [place] [address] Performed By: #### 2 4321-2 ####[facility] LABORATORYCLIA [id number] [place] [address] [place] CASE MGT INIT ASSon 2023 CASE MGT INIT [facility] CBC panel Auto (Bld)on 06-06 Erythrocyte distribution width (RBC) [Ratio] 13.7 % Normal 11.5-15.0 [facility] Comment on above: Order Comment: Speci men Type: BLOOD SPECIMENOrdering Facility: [facility] Address: [address] [place] [address] Performed By: #### 5 8410-2 ####[facility] LABORATORYCLIA [id number] [place] [address] [place] Hematocrit (Bld) [Volume fraction] 32.6 % Low 36.0-46.0 [facility] Comment on above: Order Comment: Speci men Type: BLOOD SPECIMENOrdering Facility: [facility] Address: [address] [place] [address] Performed By: #### 5 8410-2 ####[facility] [id number] [place] [address] [place] Hemoglobin (Bld) [Mass/Vol] 10.8 g/dL Low 11.5-15.5 [facility] Comment on above: Order Comment: Speci men Type: BLOOD SPECIMENOrdering Facility: [facility] Address: [address] [place] [address] Performed By: #### 5 8410-2 ####[facility] [id number] [address] [place] MCH (RBC) [Entitic mass] 29.9 pg Normal 26.0-34.0 [facility] Comment on above: Order Comment: Speci men Type: BLOOD SPECIMENOrdering Facility: [facility] Address: [address] [place] [address] Performed By: #### 5 8410-2 ####[facility] [id number] [address] [place] MCHC (RBC) [Mass/Vol] 33.1 g/dL Normal 30.5-36.0 [facility] Comment on above: Order Comment: Speci men Type: BLOOD SPECIMENOrdering Facility: [facility] Address: [address] [place] [address] Performed By: #### 5 8410-2 ####[facility] [id number] [place] [address] [place] MCV (RBC) [Entitic vol] 90.3 fL Normal 80.0-100.0 [facility] Comment on above: Order Comment: Speci men Type: BLOOD SPECIMENOrdering Facility: [facility] Address: [address] [place] [address] Performed By: #### 5 8410-2 ####[facility] [id number] [place] [address] [place] Nucleated RBC (Bld) [#/Vol] 10*3/uL Normal <0.01 [facility] Comment on above: Order Comment: Speci men Type: BLOOD SPECIMENOrdering Facility: [facility] Address: [address] [place] [address] Performed By: #### 5 8410-2 ####[facility] LABORATORYCLIA [id number] [facility] [place] [address] [place] Platelet mean volume (Bld) [Entitic vol] 10.5 fL Normal 9.0-12.7 [facility] Comment on above: Order Comment: Speci men Type: BLOOD SPECIMENOrdering Facility: [facility] Address: [address] [place] [address] Performed By: #### 5 8410-2 ####[facility] LABORATORYCLIA [id number] [place] [address] [place] Platelets (Bld) [#/Vol] 258 10*3/uL Normal 150-400 [facility] Comment on above: Order Comment: Speci men Type: BLOOD SPECIMENOrdering Facility: [facility] Address: [address] [place] [address] Performed By: #### 5 8410-2 ####[facility] LABORATORYCLIA [id number] [place] [address] [place] RBC (Bld) [#/Vol] 3.61 10*6/uL Low 3.90-5.20 [facility] Comment on above: Order Comment: Speci men Type: BLOOD SPECIMENOrdering Facility: [facility] Address: [address] [place] [address] Performed By: #### 5 8410-2 ####[facility] LABORATORYCLIA [id number] [place] [address] [place] WBC (Bld) [#/Vol] 3.65 10*3/uL Low 3.70-11.00 [facility] Comment on above: Order Comment: Speci men Type: BLOOD SPECIMENOrdering Facility: [facility] Address: [address] [place] [address] Performed By: #### 5 8410-2 ####[facility] LABORATORYCLIA [id number] [facility] [place] [address] [place] CONSULTon 06-07-2023 CONSULT Normal [facility] CONSULT Normal [facility] NUTRITIONon 06-07-2023 NUTRITION Normal [facility] CBC W Auto Differential pane l (Bld)on 06-06-2023 Basophils (Bld) [#/Vol] 0.05 10*3/uL Normal <0.11 [facility] Comment on above: Order Comment: Speci men Type: BLOOD SPECIMENOrdering Facility: [facility] Address: [address] [place] [address] Performed By: #### 5 7021-8 ####[facility] [id number] [place] [address] [place] Basophils/100 WBC (Bld) 1.0 % Normal [facility] Comment on above: Order Comment: Speci men Type: BLOOD SPECIMENOrdering Facility: [facility] Address: [address] [place] [address] Performed By: #### 5 7021-8 ####[facility] [id number] [place] [address] [place] Differential cell count method Nom (Bld) Auto Normal [facility] Comment on above: Order Comment: Speci men Type: BLOOD SPECIMENOrdering Facility: [facility] Address: [address] [place] [address] Performed By: #### 5 7021-8 ####[facility] LABORATORYCLIA [id number] [facility] [place] [address] [place] Eosinophils (Bld) [#/Vol] 0.11 10*3/uL Normal <0.46 [facility] Comment on above: Order Comment: Speci men Type: BLOOD SPECIMENOrdering Facility: [facility] Address: [address] [place] [address] Performed By: #### 5 7021-8 ####[facility] LABORATORYCLIA [id number] [place] Eosinophils/100 WBC (Bld) 2.2 % Normal [facility] Comment on above: Order Comment: Speci men Type: BLOOD SPECIMENOrdering Facility: [facility] Address: [address] [place] [address] Performed By: #### 5 7021-8 ####[facility] LABORATORYCLIA [id number] [place] [address] [place] Erythrocyte distribution width (RBC) [Ratio] 13.4 % Normal 11.5-15.0 [facility] Comment on above: Order Comment: Speci men Type: BLOOD SPECIMENOrdering Facility: [facility] Address: [address] [place] [address] Performed By: #### 5 7021-8 ####[facility] [id number] [address] [place] Hematocrit (Bld) [Volume fraction] 35.9 % Low 36.0-46.0 [facility] Comment on above: Order Comment: Speci men Type: BLOOD SPECIMENOrdering Facility: [facility] Address: [address] [place] [address] Performed By: #### 5 7021-8 ####[facility] LABORATORYIA [id number] [place] [address] [place] Hemoglobin (Bld) [Mass/Vol] 12.2 g/dL Normal 11.5-15.5 [facility] Comment on above: Order Comment: Speci men Type: BLOOD SPECIMENOrdering Facility: [facility] Address: [address] [place] [address] Performed By: #### 5 7021-8 ####[facility] LABORATORYIA [id number] [address] [place] Immature granulocytes (Bld) [#/Vol] 10*3/uL Normal <0.10 [facility] Comment on above: Order Comment: Speci men Type: BLOOD SPECIMENOrdering Facility: [facility] Address: [address] [place] [address] Performed By: #### 5 7021-8 ####[facility] LABORATORYIA [id number] [place] [address] [place] Immature granulocytes/100 WBC (Bld) 0.2 % Normal [facility] Comment on above: Order Comment: Speci men Type: BLOOD SPECIMENOrdering Facility: [facility] Address: [address] [place] [address] Performed By: #### 5 7021-8 ####[facility] [id number] [place] [address] [place] Lymphocytes (Bld) [#/Vol] 1.70 10*3/uL Normal 1.00-4.00 [facility] Comment on above: Order Comment: Speci men Type: BLOOD SPECIMENOrdering Facility: [facility] Address: [address] [place] [address] Performed By: #### 5 7021-8 ####[facility] [id number] [address] [place] Lymphocytes/100 WBC (Bld) 33.3 % Normal [facility] Comment on above: Order Comment: Speci men Type: BLOOD SPECIMENOrdering Facility: [facility] Address: [address] [place] [address] Performed By: #### 5 7021-8 ####[facility] [id number] [place] [id number] [place] MCH (RBC) [Entitic mass] 30.1 pg Normal 26.0-34.0 [facility] Comment on above: Order Comment: Speci men Type: BLOOD SPECIMENOrdering Facility: [facility] Address: [address] [place] [address] Performed By: #### 5 7021-8 ####[facility] LABORATORYIA [id number] [place] [address] [place] MCHC (RBC) [Mass/Vol] 34.0 g/dL Normal 30.5-36.0 [facility] Comment on above: Order Comment: Speci men Type: BLOOD SPECIMENOrdering Facility: [facility] Address: [address] [place] [address] Performed By: #### 5 7021-8 ####[facility] [id number] [place] [address] [place] MCV (RBC) [Entitic vol] 88.6 fL Normal 80.0-100.0 [facility] Comment on above: Order Comment: Speci men Type: BLOOD SPECIMENOrdering Facility: [facility] Address: [address] [place] [address] Performed By: #### 5 7021-8 ####[facility] [id number] [place] [address] [place] Monocytes (Bld) [#/Vol] 0.42 10*3/uL Normal <0.87 [facility] Comment on above: Order Comment: Speci men Type: BLOOD SPECIMENOrdering Facility: [facility] Address: [address] [place] [address] Performed By: #### 5 7021-8 ####[facility] [id number] [place] [id number] [place] Monocytes/100 WBC (Bld) 8.2 % Normal [facility] Comment on above: Order Comment: Speci men Type: BLOOD SPECIMENOrdering Facility: [facility] Address: [address] [place] [address] Performed By: #### 5 7021-8 ####[facility] [id number] [place] [address] [place] Neutrophils (Bld) [#/Vol] 2.81 10*3/uL Normal 1.45-7.50 [facility] Comment on above: Order Comment: Speci men Type: BLOOD SPECIMENOrdering Facility: [facility] Address: [address] [place] [address] Performed By: #### 5 7021-8 ####[facility] LABORATORYIA [id number] [place] [address] [place] Neutrophils/100 WBC (Bld) 55.1 % Normal [facility] Comment on above: Order Comment: Speci men Type: BLOOD SPECIMENOrdering Facility: [facility] Address: [address] [place] [address] Performed By: #### 5 7021-8 ####[facility] LABORATORYCLIA [id number] [place] [address] [place] Nucleated RBC (Bld) [#/Vol] 10*3/uL Normal <0.01 [facility] Comment on above: Order Comment: Speci men Type: BLOOD SPECIMENOrdering Facility: [facility] Address: [address] [place] [address] Performed By: #### 5 7021-8 ####[facility] [id number] [place] [address] [place] Nucleated RBC/100 WBC (Bld) [Ratio] 0.0 /100 WBC Normal [facility] Comment on above: Order Comment: Speci men Type: BLOOD SPECIMENOrdering Facility: [facility] Address: [address] [place] [address] Performed By: #### 5 7021-8 ####[facility] [id number] [place] [address] [place] Platelet mean volume (Bld) [Entitic vol] 10.3 fL Normal 9.0-12.7 [facility] Comment on above: Order Comment: Speci men Type: BLOOD SPECIMENOrdering Facility: [facility] Address: [address] [place] [address] Performed By: #### 5 7021-8 ####[facility] LABORATORYIA [id number] [place] [address] [place] Platelets (Bld) [#/Vol] 323 10*3/uL Normal 150-400 [facility] Comment on above: Order Comment: Speci men Type: BLOOD SPECIMENOrdering Facility: [facility] Address: [address] [place] [address] Performed By: #### 5 7021-8 ####[facility] LABORATORYCLIA [id number] [facility] [place] [address] [place] RBC (Bld) [#/Vol] 4.05 10*6/uL Normal 3.90-5.20 [facility] Comment on above: Order Comment: Speci men Type: BLOOD SPECIMENOrdering Facility: [facility] Address: [address] [place] [address] Performed By: #### 5 7021-8 ####[facility] [id number] [facility] [place] [address] [place] WBC (Bld) [#/Vol] 5.10 10*3/uL Normal 3.70-11.00 [facility] Comment on above: Order Comment: Speci men Type: BLOOD SPECIMENOrdering Facility: [facility] Address: [address] [place] [address] Performed By: #### 5 7021-8 ####[facility] [id number] [place] [address] [place] ABD/PEL W IVCONon 024 CT ABD/PEL W IVCON Normal [facility] Comprehensive metabolic 2000 panelon 06-06-2023 Albumin [Mass/Vol] 4.3 g/dL Normal 3.9-4.9 [facility] Comment on above: Order Comment: Speci men Type: BLOOD SPECIMENOrdering Facility: [facility] Address: [address] [place] [address] Performed By: #### 2 4323-8, 3, ####[facility] [id number] [facility] [place] [address] [place] ALP [Catalytic activity/Vol] 62 U/L Normal 34-123 [facility] Comment on above: Order Comment: Speci men Type: BLOOD SPECIMENOrdering Facility: [facility] Address: [address] [place] [address] Performed By: #### 2 4323-8, 0-3, ####[facility] LABORATORYIA [id number] [place] [address] [place] ALT [Catalytic activity/Vol] 16 U/L Normal 7-38 [facility] Comment on above: Order Comment: Speci men Type: BLOOD SPECIMENOrdering Facility: [facility] Address: [address] [place], [place] [address] Performed By: #### 2 4323-8, 3040-3, ####[facility] LABORATORYCLIA [id number] [place] [address] [place] Anion gap [Moles/Vol] 10 mmol/L Normal 9-18 [facility] Comment on above: Order Comment: Speci men Type: BLOOD SPECIMENOrdering Facility: [facility] Address: [address] [place] [address] Performed By: #### 2 4323-8, 3039-3, ####[facility] LABORATORYCLIA [id number] [place] [address] [place] AST [Catalytic activity/Vol] 28 U/L Normal 13-35 [facility] Comment on above: Order Comment: Speci men Type: BLOOD SPECIMENOrdering Facility: [facility] Address: [address] [place] [address] Performed By: #### 2 4323-8, 3039-3, ####[facility] LABORATORYCLIA [id number] [place] [address] [place] Bilirubin [Mass/Vol] 0.3 mg/dL Normal 0.2-1.3 [facility] Comment on above: Order Comment: Speci men Type: BLOOD SPECIMENOrdering Facility: [facility] Address: [address] [place] [address] Performed By: #### 2 4323-8, 3039-3, ####[facility] LABORATORYCLIA [id number] [place] [address] [place] Calcium [Mass/Vol] 9.1 mg/dL Normal 8.5-10.2 [facility] Comment on above: Order Comment: Speci men Type: BLOOD SPECIMENOrdering Facility: [facility] Address: [address] [place] [address] Performed By: #### 2 4323-8, 0-3, ####[facility] [id number] [place] [address] [place] Chloride [Moles/Vol] 103 mmol/L Normal 97-105 [facility] Comment on above: Order Comment: Speci men Type: BLOOD SPECIMENOrdering Facility: [facility] Address: [address] [place] [address] Performed By: #### 2 4323-8, 3039-3, ####[facility] [id number] [place] [address] [place] CO2 [Moles/Vol] 23 mmol/L Normal 22-30 [facility] Comment on above: Order Comment: Speci men Type: BLOOD SPECIMENOrdering Facility: [facility] Address: [address] [place] [address] Performed By: #### 2 4323-8, 3, ####[facility] [id number] [place] [address] [place] Creatinine [Mass/Vol] 0.74 mg/dL Normal 0.58-0.96 [facility] Comment on above: Order Comment: Speci men Type: BLOOD SPECIMENOrdering Facility: [facility] Address: [address] [place] [address] Performed By: #### 2 4323-8, 03, ####[facility] [id number] [place] [address] [place] Creatinine and Glomerular filtration rate.predicted panel (S/P/Bld) 109 mL/min/1.73m??? Normal >=60 [facility] Comment on above: Order Comment: Speci men Type: BLOOD SPECIMENOrdering Facility: [facility] Address: [address] [place] [address] Result Comment: Jessica mated Glomerular Filtration Rate [...] GFR. Performed By: #### 2 4323-8, 3040-3, ####[facility] LABORATORYCLIA [id number] [place] [address] [place] Glucose [Mass/Vol] 91 mg/dL Normal 74-99 [facility] Comment on above: Order Comment: Geraldo marrero Type: BLOOD SPECIMENOrdering Facility: [facility] Address: [address] [place] [address] Result Comment: The [place] [employer] (ADA) provides guidance for cutoff [...] Standards of Medical Care in Diabetes 2016, [place] [employer]. Diabetes Care. 2016.39(Suppl 1). Performed By: #### 2 4323-8, 3039-3, ####[facility] LABORATORYCLIA [id number] [facility] [place] [address] [place] Potassium [Moles/Vol] 4.0 mmol/L Normal 3.7-5.1 [facility] Comment on above: Order Comment: Geraldo marrero Type: BLOOD SPECIMENOrdering Facility: [facility] Address: [address] [place] [place] [id number] Performed By: #### 2 4323-8, 0-3, ####[facility] LABORATORYCLIA [id number] [place] [address] [place] Protein [Mass/Vol] 7.4 g/dL Normal 6.3-8.0 [facility] Comment on above: Order Comment: Speci men Type: BLOOD SPECIMENOrdering Facility: [facility] Address: [address] [place] [address] Performed By: #### 2 4323-8, 0-3, ####[facility] [id number] [place] [address] [place] Sodium [Moles/Vol] 136 mmol/L Normal 136-144 [facility] Comment on above: Order Comment: Speci men Type: BLOOD SPECIMENOrdering Facility: [facility] Address: [address] [place] [address] Performed By: #### 2 4323-8, 0-3, ####[facility] [id number] [place] [address] [place] Urea nitrogen [Mass/Vol] 14 mg/dL Normal 7- [facility] Comment on above: Order Comment: Speci men Type: BLOOD SPECIMENOrdering Facility: [facility] Address: [address] [place] [address] Performed By: #### 2 4323-8, 0-3, ####[facility] [id number] [place] [address] [place] ECG COMPLETEon 06-06-2023 ECG COMPLETE [facility]-06-2023 ED NOTE Normal [facility] ED NOTE Normal [facility] ED PROV NOTEon 06-06-2023 ED PROV NOTE [facility] FLUABV+SARS-CoV-2+RSV Pnl Re sp HANK+probeon 06-06-2023 FLUABV+SARS-CoV-2+R SV Pnl Resp HANK+probe Normal [facility] Comment on above: Performed By: #### 9 5941-1 ####[facility] LABORATORYNM [id number] [place] [address] [place] HISTORY PHYSICALon HISTORY PHYSICAL Normal [facility] Lipase SerPl-cCncon 06-06-19 24 Lipase [Catalytic activity/Vol] 75 U/L High 16-61 [facility] Comment on above: Order Comment: Speci men Type: BLOOD SPECIMENOrdering Facility: [facility] Address: [address] [place] [address] Performed By: #### 2 4323-8, 3040-3, ####[facility] [id number] [place] [address] [place] Magnesium SerPl-mCncon 06-05 Magnesium [Mass/Vol] 2.1 mg/dL Normal 1.7-2.3 [facility] Comment on above: Order Comment: Speci men Type: BLOOD SPECIMENOrdering Facility: [facility] Address: [address] [place] [address] Performed By: #### 2 4323-8, 0-3, ####[facility] [id number] [place] [address] [place] Urinalysis complete panel (U )on 06-06-2023 Bilirubin Ql (U) Negative Normal Negative [facility] Comment on above: Order Comment: Speci men Type: URINE SPECIMENOrdering Facility: [facility] Address: [address] [place] [address] Performed By: #### 2 4356-8 ####[facility] [id number] [place] [address] [place] Clarity (Unsp spec) Clear Normal Clear [facility] Comment on above: Order Comment: Speci men Type: URINE SPECIMENOrdering Facility: [facility] Address: [address] [place] [address] Performed By: #### 2 4356-8 ####[facility] [id number] [place] [address] [place] [place] Color (U) Light Yellow Normal yellow [facility] Comment on above: Order Comment: Speci men Type: URINE SPECIMENOrdering Facility: [facility] Address: [address] [place] [address] Performed By: #### 2 4356-8 ####[facility] [id number] [place] [address] [place] Epithelial cells LM.HPF (Urine sed) [#/Area] Few Normal [facility] Comment on above: Order Comment: Speci men Type: URINE SPECIMENOrdering Facility: [facility] Address: [address] [place] [address] Performed By: #### 2 4356-8 ####[facility] [id number] [place] [address] [place] Glucose Test strip (U) [Mass/Vol] Negative Normal Trace, Negative [facility] Comment on above: Order Comment: Speci men Type: URINE SPECIMENOrdering Facility: [facility] Address: [address] [place] [address] Performed By: #### 2 4356-8 ####[facility] [id number] [place] [address] [place] Hemoglobin Ql (U) Negative Normal Negative, Trace [facility] Comment on above: Order Comment: Speci men Type: URINE SPECIMENOrdering Facility: [facility] Address: [address] [place] [address] Performed By: #### 2 4356-8 ####[facility] [id number] [place] [address] [place] Ketones Ql (U) Negative Normal Negative, Trace [facility] Comment on above: Order Comment: Speci men Type: URINE SPECIMENOrdering Facility: [facility] Address: [address] [place] [address] Performed By: #### 2 4356-8 ####[facility] [id number] [place] [address] [place] Leukocyte esterase Test strip Ql (U) Negative Normal Negative, 25 Patito/uL [facility] Comment on above: Order Comment: Speci men Type: URINE SPECIMENOrdering Facility: [facility] Address: [address] [place] [address] Performed By: #### 2 4356-8 ####[facility] [id number] [place] [address] [place] Nitrite Ql (U) Negative Normal Negative [facility] Comment on above: Order Comment: Speci men Type: URINE SPECIMENOrdering Facility: [facility] Address: [address] [place] [address] Performed By: #### 2 4356-8 ####[facility] [id number] [place] [address] [place] pH (U) 7.0 [pH] Normal 5.0-8.0 [facility] Comment on above: Order Comment: Speci men Type: URINE SPECIMENOrdering Facility: [facility] Address: [address] [place] [address] Performed By: #### 2 4356-8 ####[facility] [id number] [place] [address] [place] Protein (U) [Mass/Vol] Trace Normal Trace, Negative [facility] Comment on above: Order Comment: Speci men Type: URINE SPECIMENOrdering Facility: [facility] Address: [address] [place] [address] Performed By: #### 2 4356-8 ####[facility] [id number] [place] [id number] [place] RBC LM.HPF (Urine sed) [#/Area] 3-5 /HPF Abnormal 0-3 /HPF [facility] Comment on above: Order Comment: Speci men Type: URINE SPECIMENOrdering Facility: [facility] Address: [address] [place] [address] Performed By: #### 2 4356-8 ####[facility] [id number] [place] [id number] [place] Specific gravity (U) [Rel density] 1.024 Normal 1.005-1.030 [facility] Comment on above: Order Comment: Speci men Type: URINE SPECIMENOrdering Facility: [facility] Address: [address] [place] [address] Performed By: #### 2 4356-8 ####[facility] [id number] [place] [address] [facility] [place] Urobilinogen Ql (U) Normal Normal Normal [facility] Comment on above: Order Comment: Speci men Type: URINE SPECIMENOrdering Facility: [facility] Address: [address] [place] [address] Performed By: #### 2 4356-8 ####[facility] [id number] [place] [address] [place] WBC LM.HPF (Urine sed) [#/Area] 0-5 /HPF Normal 0-5 /HPF [facility] Comment on above: Order Comment: Speci men Type: URINE SPECIMENOrdering Facility: [facility] Address: [address] [place] [address] Performed By: #### 2 4356-8 ####[facility] [id number] [place] [address] [place] ED Note-Physicianon 06-04-19 ED Note-Physician [id number]#[id number] Normal [facility] Ambulatory Visit Summaryon 0 06-02-2023 Ambulatory Visit Summary Normal [address] [place] [address]- \.br\ Medications\.br\ What How Much When Why [...] for choosing us for your care.\.br\ \.br\ [facility] Family Medicine Office/Clini c Noteon 06-02-2023 Family Medicine Office/Clinic Note Normal [facility] Comment on above: Result Comment: Elec tronically Signed By: Jaquan Paula\.br\Date and Time Signed: 06/02/23 12:30 EDT Provider Letteron 06-02-2023 Provider Letter Normal [facility] Provider Letter Normal [facility] Population Healthon 05-31-19 Population Health Normal [facility] Alanine aminotransferase [En zymatic activity/volume] in Serum or PlasmaOrdered By: Gabino Parker on 05-30-2023 ALT [Catalytic activity/Vol] 11 U/L Normal 7-52 [facility] Comment on above: Performed By: #### H EPATIC, MG, LIPASE, CMP, CBC #### [facility] [address] Albumin [Mass/volume] in Ser um or Plasma by Bromocresol green (BCG) dye binding methoOrdered By: Gabino Parker on 05-30-2023 Albumin BCG dye [Mass/Vol] 4.1 g/dL 3.5-5.7 [facility] Alkaline phosphatase [Enzyma tic activity/volume] in Serum or PlasmaOrdered By: Gabino Parker on 04-14-2024 ALP [Catalytic activity/Vol] 56 U/L Normal 34-104 [facility] Comment on above: Performed By: #### H EPATIC, MG, LIPASE, CMP, CBC #### [address] Aspartate aminotransferase [ Enzymatic activity/volume] in Serum or PlasmaOrdered By: Gabino Parker on 05-30-2023 AST [Catalytic activity/Vol] 22 U/L Normal 13-39 [facility] Comment on above: Performed By: #### H EPATIC, MG, LIPASE, CMP, CBC #### [address] Automated basophil %Ordered By: Gabino Parker on 05-30-2023 Basophils/100 WBC (Bld) 0.4 % Normal . [facility] Comment on above: Performed By: #### H EPATIC, MG, LIPASE, CMP, CBC #### [address] Automated basophil countOrde red By: Gabino Parker on 05-30-2023 Basophils (Bld) [#/Vol] 0.0 10*3/uL Normal 0.0-0.2 [facility] Comment on above: Result Comment: PERF ORMED BY: [place] [address] PATHOLOGIST [employer] BAUTISTA BAKER M.D. Performed By: #### H EPATIC, MG, LIPASE, CMP, CBC #### [address] Automated blood monocyte cou ntOrdered By: Gabino Parker on 05-30-2023 Monocytes (Bld) [#/Vol] 0.4 10*3/uL Normal 0.0-0.8 [facility] Comment on above: Performed By: #### H EPATIC, MG, LIPASE, CMP, CBC #### [address] Automated eosinophil %Ordere d By: Gabino Parker on 05-30-2023 Eosinophils/100 WBC (Bld) 0.4 % Normal . [facility] Comment on above: Performed By: #### H EPATIC, MG, LIPASE, CMP, CBC #### [facility] [address] [place] [address] Automated eosinophil countOr dered By: Gabino Parker on 05-30-2023 Eosinophils (Bld) [#/Vol] 0.0 10*3/uL Normal 0.0-0.45 [facility] Comment on above: Performed By: #### H EPATIC, MG, LIPASE, CMP, CBC #### [address] Automated erythrocytes count in urine sediment (number/area)Ordered By: Gabino Parker on 05-30-2023 RBC Auto (Urine sed) [#/Area] 3-4 [HPF] 0-4 [facility] Automated leukocytes count i n urine sediment (number/area)Ordered By: Gabino Parker on 05-30-2023 WBC Auto (Urine sed) [#/Area] 5-9 [HPF] High 0-4 [facility] Automated monocyte %Ordered By: Gabino Parker on 05-30-2023 Monocytes/100 WBC (Bld) 4.5 % Normal . [facility] Comment on above: Performed By: #### H EPATIC, MG, LIPASE, CMP, CBC #### [address] Automated neutrophil %Ordere d By: Gabino Parker on 05-30-2023 Neutrophils/100 WBC (Bld) 79.0 % Normal . [facility] Comment on above: Performed By: #### H EPATIC, MG, LIPASE, CMP, CBC #### [address] Automated urine color determ inationOrdered By: Gabino Parker on 05-30-2023 Color (U) Yellow Normal Yellow [facility] Comment on above: Order Comment: Name Collection Type:: Clean-Voided Midstream Performed By: #### A DDONUAPLUS, UHCG, CUU #### [address] Bilirubin Test strip Ql (U)O rdered By: Gabino Parker on 05-30-2023 Bilirubin Ql (U) Negative Negative [facility] Bilirubin.direct [Mass/volum e] in Serum or PlasmaOrdered By: Gabino Parker on 05-30-2023 Bilirubin.direct [Mass/Vol] 0.10 mg/dL 0.03-0.18 [facility] Bilirubin.total [Mass/volume ] in Serum or PlasmaOrdered By: Gabino Parker on 05-30-2023 Bilirubin [Mass/Vol] 0.4 mg/dL Normal 0.3-1.0 [facility] Comment on above: Performed By: #### H EPATIC, MG, LIPASE, CMP, CBC #### [facility] [address] CNPNon 05-30-2023 CNPN Normal [facility] CT abdomen pelvis w conon CT abdomen pelvis w con [facility] [place] [address] [place] [address] CT Scan Report Signed Patient: Abbey Garcia MR#: [id number] : 1990 Acct:[id number] Age/Sex: 33 / F ADM Date: 05/30/23 Loc: ER Room: Type: [facility] ER Attending Dr: Copies to: Gabino [...] Melisa Hutchinson M.D.05/30/2023 5:49 PM Dictation Location: [place] [address] Transcribed By: [facility] 05/30/231748 Dictated By: Melisa Hutchinson II, MD 05/30/231739 Signed By: 05/30/231748 Normal [facility] Calcium [Mass/volume] in Ser um or PlasmaOrdered By: Gabino Parker on 05-30-2023 Calcium [Mass/Vol] 9.3 mg/dL Normal 8.6-10.3 [facility] Comment on above: Performed By: #### H EPATIC, MG, LIPASE, CMP, CBC #### [facility] [address] Carbon dioxide, total [Moles /volume] in Serum or PlasmaOrdered By: Gabino Parker on 05-30-2023 CO2 [Moles/Vol] 27.7 mmol/L Normal 21.0-31.0 [facility] Comment on above: Performed By: #### H EPATIC, MG, LIPASE, CMP, CBC #### [facility] [address] [place] [id number] [place] Chloride [Moles/volume] in S elder or PlasmaOrdered By: Gabino Parker on 05-30-2023 Chloride [Moles/Vol] 103 mmol/L Normal 98-107 [facility] Comment on above: Performed By: #### H EPATIC, MG, LIPASE, CMP, CBC #### [address] Complete Blood Count Auto Di ffon 05-30-2023 Mean Corpuscular HGB Conc 33.8 g/dL Normal 32.0-35.0 [facility] Comment on above: Performed By: #### H EPATIC, MG, LIPASE, CMP, CBC #### [address] Monocytes/100 WBC (Bld) 16.47 % Normal 0.00-20.00 [facility] Comment on above: Performed By: #### H EPATIC, MG, LIPASE, CMP, CBC #### [address] NRBC% 0.1 /100{WBC} Normal 0-0.5 [facility] Comment on above: Performed By: #### H EPATIC, MG, LIPASE, CMP, CBC #### [address] Comprehensive Metabolic Pane nestor 05-30-2023 Albumin [Mass/Vol] 4.1 g/dL Normal 3.5-5.7 [facility] Comment on above: Performed By: #### H EPATIC, MG, LIPASE, CMP, CBC #### [address] Creatinine Clr Calc Pharmacy 118.42 Normal [facility] Comment on above: Performed By: #### H EPATIC, MG, LIPASE, CMP, CBC #### [address] GFR/1.73 sq M.predicted MDRD (S/P/Bld) [Vol rate/Area] mL/min/{1.73_m2} Normal [facility] Comment on above: Performed By: #### H EPATIC, MG, LIPASE, CMP, CBC #### [address] Creatinine [Mass/volume] in Serum or PlasmaOrdered By: Gabino Parker on 05-30-2023 Creatinine [Mass/Vol] 0.70 mg/dL Normal 0.60-1.20 [facility] Comment on above: Performed By: #### H EPATIC, MG, LIPASE, CMP, CBC #### [facility] [address] [place] [address] [place] Dipstick and Microscopicon 0 05-30-2023 Appearance (U) Clear Normal Clear [facility] Comment on above: Order Comment: Name Collection Type:: Clean-Voided Midstream Performed By: #### A DDONUAPLUS, UHCG, CUU #### [place] [address] [place] Bacteria,Urine None Seen Normal None Seen [facility] Comment on above: Order Comment: Name Collection Type:: Clean-Voided Midstream Performed By: #### A DDONUAPLUS, UHCG, CUU #### [place] [address] [place] Bilirubin,Urine Negative Normal Negative [facility] Comment on above: Order Comment: Name Collection Type:: Clean-Voided Midstream Performed By: #### A DDONUAPLUS, UHCG, CUU #### [address] Glucose Ql (U) Normal Normal Normal [facility] Comment on above: Order Comment: Name Collection Type:: Clean-Voided Midstream Performed By: #### A DDONUAPLUS, UHCG, CUU #### [place] [address] [place] Hyaline Casts,Urine 0-8 Normal 0-8 [facility] Comment on above: Order Comment: Name Collection Type:: Clean-Voided Midstream Performed By: #### A DDONUAPLUS, UHCG, CUU #### [address] Ketones Ql (U) Negative Normal Negative [facility] Comment on above: Order Comment: Name Collection Type:: Clean-Voided Midstream Performed By: #### A DDONUAPLUS, UHCG, CUU #### [place] [address] [place] Leukocyte esterase Test strip Ql (U) 1+ High Negative [facility] Comment on above: Order Comment: Name Collection Type:: Clean-Voided Midstream Performed By: #### A DDONUAPLUS, UHCG, CUU #### [place] [address] [place] Nitrite,Urine Negative Normal Negative [facility] Comment on above: Order Comment: Name Collection Type:: Clean-Voided Midstream Performed By: #### A DDONUAPLUS, UHCG, CUU #### [place] [address] [place] Occult Blood,Urine Negative Normal Negative [facility] Comment on above: Order Comment: Name Collection Type:: Clean-Voided Midstream Performed By: #### A DDONUAPLUS, UHCG, CUU #### [place] [address] [place] Protein,Urine Negative Normal Negative [facility] Comment on above: Order Comment: Name Collection Type:: Clean-Voided Midstream Performed By: #### A DDONUAPLUS, UHCG, CUU #### [place] [address] [place] RBC,Urine 3-4 Normal 0-4 [facility] Comment on above: Order Comment: Name Collection Type:: Clean-Voided Midstream Performed By: #### A DDONUAPLUS, UHCG, CUU #### [place] [address] [place] Specificy [place],Urine 1.011 Normal 1.001-1.030 [facility] Comment on above: Order Comment: Name Collection Type:: Clean-Voided Midstream Performed By: #### A DDONUAPLUS, UHCG, CUU #### [place] [address] [place] Squamous Epithelial Cell,Urine 0-1 Normal 0-2 [facility] Comment on above: Order Comment: Name Collection Type:: Clean-Voided Midstream Performed By: #### A DDONUAPLUS, UHCG, CUU #### [address] Urobilinogen,Urine Normal Normal Normal [facility] Comment on above: Order Comment: Name Collection Type:: Clean-Voided Midstream Performed By: #### A DDONUAPLUS, UHCG, CUU #### [address] WBC,Urine 5-9 High 0-4 [facility] Comment on above: Order Comment: Name Collection Type:: Clean-Voided Midstream Performed By: #### A DDONUAPLUS, UHCG, CUU #### [address] Erythrocyte distribution wid th [Ratio] by Automated countOrdered By: Gabino Parker on 05-30-2023 Erythrocyte distribution width (RBC) [Ratio] 15.5 % High 11.9-15.3 [facility] Comment on above: Performed By: #### H EPATIC, MG, LIPASE, CMP, CBC #### [address] Erythrocytes [#/volume] in B lood by Automated countOrdered By: Gabino Parker on 05-30-2023 RBC (Bld) [#/Vol] 3.86 10*6/uL Normal 3.60-5.00 [facility] Comment on above: Performed By: #### H EPATIC, MG, LIPASE, CMP, CBC #### [address] Glucose [Mass/volume] in Ser um or PlasmaOrdered By: Gabino Parker on 05-30-2023 Glucose [Mass/Vol] 81 mg/dL Normal 70-100 [facility] Comment on above: ADA recommended refe rence rangeRandom Glucose Reference Range is dependent on time and content of last meal. Glucose of more than 200 mg/dL in a nonstressed, ambulatory subject supports the diagnosis of Diabetes Mellitus. Result Comment: [facility] [place] Glucose Reference Range is dependent on time and content of last meal. Glucose of more than 200 mg/dL in a nonstressed, ambulatory subject supports the diagnosis of Diabetes Mellitus. ADA recommended reference range Performed By: #### H EPATIC, MG, LIPASE, CMP, CBC #### [address] HCG ( test) IA.rapi d Ql (U)Ordered By: Gabino Parker on 05-30-2023 HCG ( test) Ql (U) Negative [facility] HCG,Urineon 05-30-2023 Beta HCG ( test) Ql (U) Negative Normal [facility] Comment on above: Order Comment: Name Collection Type:: Clean-Voided Midstream Result Comment: PERF ORMED BY: [place] [address] PATHOLOGIST [employer]ISH[employer] BAUTISTA BAKER M.D. Performed By: #### A DDONUAPLUS, CG, CUU #### [address] Hematocrit [Volume Fraction] of Blood by Automated countOrdered By: Gabino Parker on 05-30-2023 Hematocrit (Bld) [Volume fraction] 34.9 % Normal 34.0-46.4 [facility] Comment on above: Performed By: #### H EPATIC, MG, LIPASE, CMP, CBC #### [address] Hemoglobin [Mass/volume] in BloodOrdered By: Gabino Parker on 05-30-2023 Hemoglobin (Bld) [Mass/Vol] 11.8 g/dL Normal 11.8-15.4 [facility] Comment on above: Performed By: #### H EPATIC, MG, LIPASE, CMP, CBC #### [address] Hepatic Panelon 05-30-2023 Bilirubin,Indirect 0.3 mg/dL Normal [facility] Comment on above: Performed By: #### H EPATIC, MG, LIPASE, CMP, CBC #### [facility] [address] Bilirubin.indirect [Mass/Vol] 0.10 mg/dL Normal 0.03-0.18 [facility] Comment on above: Performed By: #### H EPATIC, MG, LIPASE, CMP, CBC #### [facility] [address] Ketones Auto test strip (U) [Mass/Vol]Ordered By: Gabino Parker on 05-30-2023 Ketones (U) [Mass/Vol] Negative Negative [facility] Laboratory - UrinalysisOrder ed By: Gabino Parker on 05-30-2023 Hyaline casts LM Ql (Urine sed) 0-8 [LPF] 0-8 [facility] Leukocytes [#/volume] correc darvin for nucleated erythrocytes in Blood by Automated counOrdered By: Gabino Parker on 05-30-2023 WBC corrected for nucl RBC Auto (Bld) [#/Vol] 8.8 10*3/uL 3.8-11.6 [facility] Leukocytes [#/volume] in Blo od by Automated countOrdered By: Gabino Parker on 05-30-2023 WBC (Bld) [#/Vol] 8.8 10*3/uL Normal 3.8-11.6 [facility] Comment on above: Performed By: #### H EPATIC, MG, LIPASE, CMP, CBC #### [address] Lipase [Enzymatic activity/v olume] in Serum or PlasmaOrdered By: Gabino Parker on 05-30-2023 Lipase [Catalytic activity/Vol] 37.0 U/L Normal 11.0-82.0 [facility] Comment on above: Result Comment: PERF ORMED BY: [place] [address] PATHOLOGIST [employer]ISH[employer] BAUTISTA BAKER M.D. Performed By: #### H EPATIC, MG, LIPASE, CMP, CBC #### [address] Lymphocytes [#/volume] in Bl ood by Automated countOrdered By: Gabino Parker on 05-30-2023 Lymphocytes (Bld) [#/Vol] 1.4 10*3/uL Normal 1.00-4.8 [facility] Comment on above: Performed By: #### H EPATIC, MG, LIPASE, CMP, CBC #### [facility] [address] [place] [address] Lymphocytes/100 leukocytes i n Blood by Automated countOrdered By: Gabino Parker on 05-30-2023 Lymphocytes/100 WBC (Bld) 15.7 % Normal . [facility] Comment on above: Performed By: #### H EPATIC, MG, LIPASE, CMP, CBC #### [address] MCH [Entitic mass] by Automa darvin countOrdered By: Gabino Parker on 05-30-2023 MCH (RBC) [Entitic mass] 30.5 pg Normal 24.7-34.3 [facility] Comment on above: Performed By: #### H EPATIC, MG, LIPASE, CMP, CBC #### [address] MCHC Auto (RBC) [Mass/Vol]Or dered By: Gabino Parker on 05-30-2023 MCHC (RBC) [Mass/Vol] 33.8 g/dL 32.0-35.0 [facility] MCV [Entitic volume] by Auto mated countOrdered By: Gabino Parker on 05-30-2023 MCV (RBC) [Entitic vol] 90.3 fL Normal 80-100 [facility] Comment on above: Performed By: #### H EPATIC, MG, LIPASE, CMP, CBC #### [address] Magnesium [Mass/volume] in S elder or PlasmaOrdered By: Gabino Parker on 05-30-2023 Magnesium [Mass/Vol] 2.1 mg/dL Normal 1.9-2.7 [facility] Comment on above: Performed By: #### H EPATIC, MG, LIPASE, CMP, CBC #### [address] [place] [address] [place] Monocyte distribution width [Entitic volume] in Blood by AutomatedOrdered By: Gabino Parker on 05-30-2023 Monocyte distribution width Auto (Bld) [Entitic vol] 16.47 % 0.00-20.00 [facility] Neutrophils [#/volume] in Bl ood by Automated countOrdered By: Gabino Parker on 05-30-2023 Neutrophils (Bld) [#/Vol] 6.9 10*3/uL Normal 1.8-7.7 [facility] Comment on above: Performed By: #### H EPATIC, MG, LIPASE, CMP, CBC #### [facility] [address] [place] [address] Nitrite Test strip Ql (U)Ord ered By: Gabino Parker on 05-30-2023 Nitrite Ql (U) Negative Negative [facility] No Panel InformationOrdered By: Gabino Parker on 05-30-2023 Estimated GFR (CKD-EPI) > 60.0 mL/Min [facility] Creatinine Clearance (Chem 118.42 [facility] Nucleated erythrocytes [Pres ence] in Blood by Automated countOrdered By: Gabino Parker on 05-30-2023 Nucleated RBC Auto Ql (Bld) 0.1 /100{WBC} 0-0.5 [facility] Platelet mean volume [Entiti c volume] in Blood by Automated countOrdered By: Gabino Parker on 05-30-2023 Platelet mean volume (Bld) [Entitic vol] 9.5 fL Normal 6.3-10.7 [facility] Comment on above: Performed By: #### H EPATIC, MG, LIPASE, CMP, CBC #### [facility] [address] [place] [address] [place] Platelets [#/volume] in Bloo d by Automated countOrdered By: Gabino Parker on 05-30-2023 Platelets (Bld) [#/Vol] 270 10*3/uL Normal 150-450 [facility] Comment on above: Performed By: #### H EPATIC, MG, LIPASE, CMP, CBC #### [facility] [address] [place] [address] Potassium [Moles/volume] in Serum or PlasmaOrdered By: Gabino Parker on 05-30-2023 Potassium [Moles/Vol] 4.0 mmol/L Normal 3.5-5.1 [facility] Comment on above: Performed By: #### H EPATIC, MG, LIPASE, CMP, CBC #### [facility] [address] [place] [address] Protein Auto test strip (U) [Mass/Vol]Ordered By: Gabino Parker on 05-30-2023 Protein (U) [Mass/Vol] Negative Negative [facility] Protein [Mass/volume] in Ser um or PlasmaOrdered By: Gabino Parker on 05-30-2023 Protein [Mass/Vol] 7.2 g/dL Normal 6.4-8.9 [facility] Comment on above: Performed By: #### H EPATIC, MG, LIPASE, CMP, CBC #### [address] Serum globulin measurement b y calculation (mass/volume)Ordered By: Gabino Parker on 05-30-2023 Globulin (S) [Mass/Vol] 3.1 g/dL Normal [facility] Comment on above: Performed By: #### H EPATIC, MG, LIPASE, CMP, CBC #### [address] Serum or plasma albumin/glob ulin mass ratioOrdered By: Gabino Parker on 05-30-2023 Albumin/Globulin [Mass ratio] 1.3 {ratio} [facility] Comment on above: Performed By: #### H EPATIC, MG, LIPASE, CMP, CBC #### [facility] [address] [place] [address] Serum or plasma anion gap de terminationOrdered By: Gabino Parker on 05-30-2023 Anion gap [Moles/Vol] 12.3 mmol/L Normal 6.0-15.0 [facility] Comment on above: Performed By: #### H EPATIC, MG, LIPASE, CMP, CBC #### [address] [place] [address] [place] Serum or plasma non-glucuron idated bilirubin measurement (mass/volume)Ordered By: Gabino Parker on 05-30-2023 Bilirubin.indirect [Mass/Vol] 0.3 mg/dL [facility] Sodium [Moles/volume] in Ser um or PlasmaOrdered By: Gabino Parker on 05-30-2023 Sodium [Moles/Vol] 139 mmol/L Normal 136-145 [facility] Comment on above: Performed By: #### H EPATIC, MG, LIPASE, CMP, CBC #### [address] Specific gravity Auto test s trip (U) [Rel density]Ordered By: Gabino Parker on 05-30-2023 Specific gravity (U) [Rel density] 1.011 1.001-1.030 [facility] Squamous epithelial cells de tection in urine sediment by light microscopyOrdered By: Gabino Parker on 05-30-2023 Epithelial cells.squamous LM Ql (Urine sed) 0-1 [HPF] 0-2 [facility] Urea nitrogen [Mass/volume] in Serum or PlasmaOrdered By: Gabino Parker on 05-30-2023 Urea nitrogen [Mass/Vol] 6 mg/dL Low 7-25 [facility] Comment on above: Performed By: #### H EPATIC, MG, LIPASE, CMP, CBC #### [facility] [address] [place] [address] Urine Cultureon 05-30-2023 Bacteria identified Cx Nom (U) 75,000 colonies/ml mixed bacterial skin contaminants 2 Days PERFORMED BY: [place] [address] PATHOLOGIST [employer]IC FINISHER BAUTISTA BAKER M.D. Normal [facility] Comment on above: Performed By: #### A DDONUAPLUS, UHCG, CUU #### [address] Urine bacteria detection by automated methodOrdered By: Gabino Parker on 05-30-2023 Bacteria Auto Ql (U) None seen None Seen [facility] Urine clarity by refractomet ry automatedOrdered By: Gabino Parker on 05-30-2023 Clarity Refractometry automated (U) Clear Clear [facility] Urine culture routineOrdered By: Gabino Parker on 05-30-2023 Bacteria identified Cx Nom (U) 2 Days [facility] Urine glucose measurement by automated test strip (mass/volume)Ordered By: Gabino Parker on 05-30-2023 Glucose Auto test strip (U) [Mass/Vol] Normal mg/dL Normal [facility] Urine hemoglobin detection b y automated test stripOrdered By: Gabino Parker on 05-30-2023 Hemoglobin Auto test strip Ql (U) Negative Negative [facility] Urine leukocyte esterase det ection by automated test stripOrdered By: Gabino Parker on 05-30-2023 Leukocyte esterase Auto test strip Ql (U) 1+ High Negative [facility] Urine pH measurement by auto mated test stripOrdered By: Gabino Parker on 05-30-2023 pH (U) [pH] Normal 5.0-9.0 [facility] Comment on above: Order Comment: Name Collection Type:: Clean-Voided Midstream Performed By: #### A DDONUAPLUS, UHCG, CUU #### [facility] [address] Urobilinogen Auto test strip (U) [Mass/Vol]Ordered By: Gabino Parker on 05-30-2023 Urobilinogen (U) [Mass/Vol] Normal mg/dL Normal [facility] Basic metabolic 2000 panelon 05-28-2023 Anion gap [Moles/Vol] 10 mmol/L Normal 9-18 [facility] Comment on above: Order Comment: Speci men Type: BLOOD SPECIMENOrdering Facility: [facility] Address: [address] [place] [address] Performed By: #### 1 9123-9, 2777-1, 40661-0 ####[facility] [id number] [place] [address] [place] Calcium [Mass/Vol] 8.5 mg/dL Normal 8.5-10.2 [facility] Comment on above: Order Comment: Speci men Type: BLOOD SPECIMENOrdering Facility: [facility] Address: [address] [place] [address] Performed By: #### 1 9123-9, 2777-1, 50827-6 ####[facility]ATORYCLIA [id number] [place] [id number] [place] Chloride [Moles/Vol] 105 mmol/L Normal 97-105 [facility] Comment on above: Order Comment: Speci men Type: BLOOD SPECIMENOrdering Facility: [facility] Address: [address] [place] [address] Performed By: #### 1 9123-9, 2777-, 57415-5 ####[facility]ORYCLIA [id number] [place] [id number] [place] CO2 [Moles/Vol] 24 mmol/L Normal 22-30 [facility] Comment on above: Order Comment: Speci men Type: BLOOD SPECIMENOrdering Facility: [facility] Address: [address] [place] [address] Performed By: #### 1 9123-9, 2777-, 17308-8 ####[facility]ORATORYCLIA [id number] [place] [id number] [place] Creatinine [Mass/Vol] 0.52 mg/dL Low 0.58-0.96 [facility] Comment on above: Order Comment: Speci men Type: BLOOD SPECIMENOrdering Facility: [facility] Address: [address] [place] [address] Performed By: #### 1 9123-9, 2777-, 44457-9 ####[facility]ORATORYCLIA [id number] [place] [id number] [facility] Creatinine and Glomerular filtration rate.predicted panel (S/P/Bld) 125 mL/min/1.73m??? Normal >=60 [facility] Comment on above: Order Comment: Speci men Type: BLOOD SPECIMENOrdering Facility: [facility] Address: [address] [place] [address] Result Comment: Jessica mated Glomerular Filtration Rate (eGFR) is calculated using the 2021 CKD-EPI creatinine equation. This equation utilizes serum creatinine, sex, and age as parameters. The creatinine assay has traceable calibration to isotope dilution-mass spectrometry. Refer to KDIGO guidelines for clinical interpretation. In patients with unstable renal function, e.g. those with acute kidney injury, the eGFR may not accurately reflect actual GFR. Performed By: #### 1 9123-9, 2777-, 40760-0 ####[facility]ORYCLIA [id number] [place] [id number] [place] Glucose [Mass/Vol] 77 mg/dL Normal 74-99 [facility] Comment on above: Order Comment: Geraldo marrero Type: BLOOD SPECIMENOrdering Facility: [facility] Address: [address] [place] [address] Result Comment: The [place] Diabetes Association (ADA) provides guidance for cutoff [...] Standards of Medical Care in Diabetes 2016, [place] [employer]. Diabetes Care. 2016.39(Suppl 1). Performed By: #### 1 9123-9, 27708-15, 54038-9 ####[facility]ORYCLIA [id number] [place] [id number] [place] Potassium [Moles/Vol] 4.2 mmol/L Normal 3.7-5.1 [facility] Comment on above: Order Comment: Geraldo marrero Type: BLOOD SPECIMENOrdering Facility: [facility] Address: [address] [place] [address] Performed By: #### 1 9123-9, 2777-, 86227-7 ####[facility]ORYCLIA [id number] [place] [id number] [place] Sodium [Moles/Vol] 139 mmol/L Normal 136-144 [facility] Comment on above: Order Comment: Speci men Type: BLOOD SPECIMENOrdering Facility: [facility] Address: [address] [place] [address] Performed By: #### 1 9123-9, 2777-1, 25366-0 ####[facility]ORYCLIA [id number] [place] [id number] [place] Urea nitrogen [Mass/Vol] 8 mg/dL Normal 7-21 [facility] Comment on above: Order Comment: Speci men Type: BLOOD SPECIMENOrdering Facility: [facility] Address: [address] [place] [address] Performed By: #### 1 9123-9, 2777, 18510-7 ####[facility]ORYCLIA [id number] [place] [address] [place] CBC panel Auto (Bld)on 05-27 Erythrocyte distribution width (RBC) [Ratio] 13.7 % Normal 11.5-15.0 [facility] Comment on above: Order Comment: Speci men Type: BLOOD SPECIMENOrdering Facility: [facility] Address: [address] [place] [address] Performed By: #### 5 8410-2 ####[facility]ORYCLIA [id number] [place] [id number] [place] Hematocrit (Bld) [Volume fraction] 31.5 % Low 36.0-46.0 [facility] Comment on above: Order Comment: Speci men Type: BLOOD SPECIMENOrdering Facility: [facility] Address: [address] [place] [address] Performed By: #### 5 8410-2 ####[facility]ORYCLIA [id number] [place] [id number] [place] Hemoglobin (Bld) [Mass/Vol] 11.1 g/dL Low 11.5-15.5 [facility] Comment on above: Order Comment: Speci men Type: BLOOD SPECIMENOrdering Facility: [facility] Address: [address] [place] [address] Performed By: #### 5 8410-2 ####[facility]ORATORYCLIA [id number] [address] STATES [facility] MCH (RBC) [Entitic mass] 31.4 pg Normal 26.0-34.0 [facility] Comment on above: Order Comment: Speci men Type: BLOOD SPECIMENOrdering Facility: [facility] Address: [address] [place] [address] Performed By: #### 5 8410-2 ####[facility]ORATORYCLIA [id number] [address] STATES [facility] MCHC (RBC) [Mass/Vol] 35.2 g/dL Normal 30.5-36.0 [facility] Comment on above: Order Comment: Speci men Type: BLOOD SPECIMENOrdering Facility: [facility] Address: [address] [place] [address] Performed By: #### 5 8410-2 ####[facility]ORATORYCLIA [id number] [address] MCV (RBC) [Entitic vol] 89.2 fL Normal 80.0-100.0 [facility] Comment on above: Order Comment: Speci men Type: BLOOD SPECIMENOrdering Facility: [facility] Address: [address] [place] [address] Performed By: #### 5 8410-2 ####[facility]ORATORYCLIA [id number] [address] Nucleated RBC (Bld) [#/Vol] 10*3/uL Normal <0.01 [facility] Comment on above: Order Comment: Speci men Type: BLOOD SPECIMENOrdering Facility: [facility] Address: [address] [place] [address] Performed By: #### 5 8410-2 ####[facility]ORATORYCLIA [id number] [address] Platelet mean volume (Bld) [Entitic vol] 11.8 fL Normal 9.0-12.7 [facility] Comment on above: Order Comment: Speci men Type: BLOOD SPECIMENOrdering Facility: [facility] Address: [address] [place] [address] Performed By: #### 5 8410-2 ####[facility]ORYCLIA [id number] [place] [id number] [place] Platelets (Bld) [#/Vol] 199 10*3/uL Normal 150-400 [facility] Comment on above: Order Comment: Speci men Type: BLOOD SPECIMENOrdering Facility: [facility] Address: [address] [place] [address] Performed By: #### 5 8410-2 ####[facility]ORYCLIA [id number] [place] [id number] [place] RBC (Bld) [#/Vol] 3.53 10*6/uL Low 3.90-5.20 [facility] Comment on above: Order Comment: Speci men Type: BLOOD SPECIMENOrdering Facility: [facility] Address: [address] [place] [address] Performed By: #### 5 8410-2 ####[facility]ORYCLIA [id number] [place] [id number] [place] WBC (Bld) [#/Vol] 6.24 10*3/uL Normal 3.70-11.00 [facility] Comment on above: Order Comment: Speci men Type: BLOOD SPECIMENOrdering Facility: [facility] Address: [address] [place] [address] Performed By: #### 5 8410-2 ####[facility]ORYCLIA [id number] [place] [id number] [place] CNCOon 05-28-2023 CNCO Letter Text Normal [facility] CNDSon 05-28-2023 CNDS Normal [facility] CNPNon 05-28-2023 CNPN Normal [facility] Magnesium SerPl-mCncon 05-27 Magnesium [Mass/Vol] 1.9 mg/dL Normal 1.7-2.3 [facility] Comment on above: Order Comment: Speci men Type: BLOOD SPECIMENOrdering Facility: [facility] Address: [address] [place] [address] Performed By: #### 1 9123-9, 2777-1, 56190-2 ####[facility]ORATORYCLIA [id number] [place] [address] [place] NURSING PROGon 05-28-2023 NURSING PROG Normal [facility] Phosphate SerPl-mCncon 05-27 Phosphate [Mass/Vol] 2.3 mg/dL Low 2.7-4.8 [facility] Comment on above: Order Comment: Speci men Type: BLOOD SPECIMENOrdering Facility: [facility] Address: [address] [place] [address] Performed By: #### 1 9123-9, 2777-1, 28676-6 ####[facility]ORATORYCLIA [id number] [place] [id number] [place] Basic metabolic 2000 panelon 05-27-2023 Anion gap [Moles/Vol] 10 mmol/L Normal 9-18 [facility] Comment on above: Order Comment: Speci men Type: BLOOD SPECIMENOrdering Facility: [facility] Address: [address] [place] [id number] Performed By: #### 2 777-1, 72222-7, ####[facility]ORATORYCLIA [id number] [place] [id number] [place] Calcium [Mass/Vol] 8.9 mg/dL Normal 8.5-10.2 [facility] Comment on above: Order Comment: Speci men Type: BLOOD SPECIMENOrdering Facility: [facility] Address: [address] [place] [id number] Performed By: #### 2 777-1, 97184-1, ####[facility]ORYCLIA [id number] [place] [id number] [place] Chloride [Moles/Vol] 104 mmol/L Normal 97-105 [facility] Comment on above: Order Comment: Speci men Type: BLOOD SPECIMENOrdering Facility: [facility] Address: [address] [place] [address] Performed By: #### 2 777-1, 78345-1, ####[facility]ATORYCLIA [id number] [place] [address] [place] CO2 [Moles/Vol] 25 mmol/L Normal 22-30 [facility] Comment on above: Order Comment: Speci men Type: BLOOD SPECIMENOrdering Facility: [facility] Address: [address] [place] [address] Performed By: #### 2 777-1, , ####[facility]ORYCLIA [id number] [place] [id number] [place] Creatinine [Mass/Vol] 0.57 mg/dL Low 0.58-0.96 [facility] Comment on above: Order Comment: Speci men Type: BLOOD SPECIMENOrdering Facility: [facility] Address: [address] [place] [address] Performed By: #### 2 777-1, , ####[facility]ORYCLIA [id number] [place] [id number] [place] [facility] Creatinine and Glomerular filtration rate.predicted panel (S/P/Bld) 122 mL/min/1.73m??? Normal >=60 [facility] Comment on above: Order Comment: Speci men Type: BLOOD SPECIMENOrdering Facility: [facility] Address: [address] [place] [address] Result Comment: Jessica mated Glomerular Filtration Rate [...] GFR. Performed By: #### 2 777-1, , ####[facility]ATORYCLIA [id number] [place] [address] [place] Glucose [Mass/Vol] 101 mg/dL High 74-99 [facility] Comment on above: Order Comment: Speci men Type: BLOOD SPECIMENOrdering Facility: [facility] Address: [address] [place], [place] [address] Result Comment: The [place] Diabetes [employer] (ADA) provides guidance for cutoff [...] Standards of Medical Care in Diabetes 2016, [place] [employer]. Diabetes Care. 2016.39(Suppl 1). Performed By: #### 2 777-1, 69920-7, ####[facility]ORATORYCLIA [id number] [place] [id number] [place] Potassium [Moles/Vol] 4.0 mmol/L Normal 3.7-5.1 [facility] Comment on above: Order Comment: Speci men Type: BLOOD SPECIMENOrdering Facility: [facility] Address: [address] [place] [address] Performed By: #### 2 777-1, , ####[facility]ORATORYCLIA [id number] [place] [id number] [place] Sodium [Moles/Vol] 139 mmol/L Normal 136-144 [facility] Comment on above: Order Comment: Speci men Type: BLOOD SPECIMENOrdering Facility: [facility] Address: [address] [place] [address] Performed By: #### 2 777-1, , ####[facility]ORATORYCLIA [id number] [place] [id number] [place] Urea nitrogen [Mass/Vol] 6 mg/dL Low 7-21 [facility] Comment on above: Order Comment: Speci men Type: BLOOD SPECIMENOrdering Facility: [facility] Address: [address] [place] [address] Performed By: #### 2 777-1, 78173-7, 49881-5 ####[facility]ORATORYCLIA [id number] [address] [place] CASE MANAGEMon 05-27-2023 CASE MANAGEM Normal [facility] CBC panel Auto (Bld)on 05-26 Erythrocyte distribution width (RBC) [Ratio] 13.5 % Normal 11.5-15.0 [facility] Comment on above: Order Comment: Speci men Type: BLOOD SPECIMENOrdering Facility: [facility] Address: [address] [place] [address] Performed By: #### 5 8410-2 ####[facility] LABORATORYCLIA [id number] [address] [place] Hematocrit (Bld) [Volume fraction] 36.5 % Normal 36.0-46.0 [facility] Comment on above: Order Comment: Speci men Type: BLOOD SPECIMENOrdering Facility: [facility] Address: [address] [place] [address] Performed By: #### 5 8410-2 ####[facility]ORATORYCLIA [id number] [place] [id number] [place] Hemoglobin (Bld) [Mass/Vol] 12.8 g/dL Normal 11.5-15.5 [facility] Comment on above: Order Comment: Speci men Type: BLOOD SPECIMENOrdering Facility: [facility] Address: [address] [place] [address] Performed By: #### 5 8410-2 ####[facility]ORATORYCLIA [id number] [place] [id number] [place] MCH (RBC) [Entitic mass] 30.9 pg Normal 26.0-34.0 [facility] Comment on above: Order Comment: Speci men Type: BLOOD SPECIMENOrdering Facility: [facility] Address: [address] [place] [address] Performed By: #### 5 8410-2 ####[facility] LABORATORYCLIA [id number] [place] [address] [place] MCHC (RBC) [Mass/Vol] 35.1 g/dL Normal 30.5-36.0 [facility] Comment on above: Order Comment: Speci men Type: BLOOD SPECIMENOrdering Facility: [facility] Address: [address] [place] [address] Performed By: #### 5 8410-2 ####[facility]ORATORYCLIA [id number] [place] [address] [place] MCV (RBC) [Entitic vol] 88.2 fL Normal 80.0-100.0 [facility] Comment on above: Order Comment: Speci men Type: BLOOD SPECIMENOrdering Facility: [facility] Address: [address] [place] [address] Performed By: #### 5 8410-2 ####[facility]ORATORYCLIA [id number] [place] [address] [place] Nucleated RBC (Bld) [#/Vol] 10*3/uL Normal <0.01 [facility] Comment on above: Order Comment: Speci men Type: BLOOD SPECIMENOrdering Facility: [facility] Address: [address] [place] [address] Performed By: #### 5 8410-2 ####[facility] LABORATORYCLIA [id number] [place] [address] [place] Platelet mean volume (Bld) [Entitic vol] 11.5 fL Normal 9.0-12.7 [facility] Comment on above: Order Comment: Speci men Type: BLOOD SPECIMENOrdering Facility: [facility] Address: [address] [place] [address] Performed By: #### 5 8410-2 ####[facility]ORYCLIA [id number] [place] [address] [place] Platelets (Bld) [#/Vol] 205 10*3/uL Normal 150-400 [facility] Comment on above: Order Comment: Speci men Type: BLOOD SPECIMENOrdering Facility: [facility] Address: [address] [place] [address] Performed By: #### 5 8410-2 ####[facility]ATORYCLIA [id number] [place] [address] [place] RBC (Bld) [#/Vol] 4.14 10*6/uL Normal 3.90-5.20 [facility] Comment on above: Order Comment: Speci men Type: BLOOD SPECIMENOrdering Facility: [facility] Address: [address] [place] [address] Performed By: #### 5 8410-2 ####[facility]ATORYCLIA [id number] [place] [id number] [place] WBC (Bld) [#/Vol] 6.24 10*3/uL Normal 3.70-11.00 [facility] Comment on above: Order Comment: Speci men Type: BLOOD SPECIMENOrdering Facility: [facility] Address: [address] [place] [address] Performed By: #### 5 8410-2 ####[facility]ORATORYCLIA [id number] [place] [id number] [place] Magnesium SerPl-ncon 05-26 Magnesium [Mass/Vol] 1.8 mg/dL Normal 1.7-2.3 [facility] Comment on above: Order Comment: Speci men Type: BLOOD SPECIMENOrdering Facility: [facility] Address: [address] [place] [address] Performed By: #### 2 777-1, 25293-1, 01164-8 ####[facility]ORATORYCLIA [id number] [place] [id number] [place] NURSING PROGon 05-27-2023 NURSING PROG Normal [facility] NUTRITIONon 05-27-2023 NUTRITION Normal [facility] Phosphate SerPl-mCncon 05-26 Phosphate [Mass/Vol] 2.4 mg/dL Low 2.7-4.8 [facility] Comment on above: Order Comment: Speci men Type: BLOOD SPECIMENOrdering Facility: [facility] Address: [address] [place] [address] Performed By: #### 2 777-1, 76460-3, ####[facility]ORYCLIA [id number] [place] [address] [place] ALLIED HEALTHon 05-26-2023 ALLIED HEALTH Normal [facility] Basic metabolic 2000 panelon 05-26-2023 Anion gap [Moles/Vol] 13 mmol/L Normal 9-18 [facility] Comment on above: Order Comment: Speci men Type: BLOOD SPECIMENOrdering Facility: [facility] Address: [address] [place] [address] Performed By: #### 2 4321-2, , 2776-02 ####[facility]ATORYCLIA [id number] [place] [id number] [place] Calcium [Mass/Vol] 9.0 mg/dL Normal 8.5-10.2 [facility] Comment on above: Order Comment: Speci men Type: BLOOD SPECIMENOrdering Facility: [facility] Address: [address] [place] [address] Performed By: #### 2 4321-2, , 2776-02 ####[facility]ORYCLIA [id number] [place] [id number] [place] Chloride [Moles/Vol] 103 mmol/L Normal 97-105 [facility] Comment on above: Order Comment: Speci men Type: BLOOD SPECIMENOrdering Facility: [facility] Address: [address] [place] [address] Performed By: #### 2 4321-2, , 2776-02 ####[facility]ORYCLIA [id number] [place] [id number] [place] CO2 [Moles/Vol] 20 mmol/L Low 22-30 [facility] Comment on above: Order Comment: Speci men Type: BLOOD SPECIMENOrdering Facility: [facility] Address: [address] [place] [address] Performed By: #### 2 4321-2, , 2776-02 ####[facility]ATORYCLIA [id number] [place] [address] [place] [facility] Creatinine [Mass/Vol] 0.68 mg/dL Normal 0.58-0.96 [facility] Comment on above: Order Comment: Geraldo marrero Type: BLOOD SPECIMENOrdering Facility: [facility] Address: [address] [place] [address] Performed By: #### 2 4321-2, , 2776-02 ####[facility] LABORATORYCLIA [id number] [place] [id number] [place] [facility] Creatinine and Glomerular filtration rate.predicted panel (S/P/Bld) 117 mL/min/1.73m??? Normal >=60 [facility] Comment on above: Order Comment: Geraldo marrero Type: BLOOD SPECIMENOrdering Facility: [facility] Address: [address] [place] [address] Result Comment: Jessica mated Glomerular Filtration Rate [...] Performed By: #### 2 4321-2, , 2776-02 ####[facility]ORATORYCLIA [id number] [place] [id number] [place] Glucose [Mass/Vol] 71 mg/dL Low 74-99 [facility] Comment on above: Order Comment: Geraldo marrero Type: BLOOD SPECIMENOrdering Facility: [facility] Address: [address] [place] [address] Result Comment: The [place] [employer] Association (ADA) provides guidance for cutoff [...] Standards of Medical Care in Diabetes 2016, [place] [employer]. Diabetes Care. 2016.39(Suppl 1). Performed By: #### 2 4321-2, , 2776-02 ####[facility]ORATORYCLIA [id number] [place] [address] [place] Potassium [Moles/Vol] 4.3 mmol/L Normal 3.7-5.1 [facility] Comment on above: Order Comment: Speci men Type: BLOOD SPECIMENOrdering Facility: [facility] Address: [address] [place] [address] Performed By: #### 2 4321-2, , 2776-02 ####[facility] LABORATORYCLIA [id number] [place] [id number] [place] Sodium [Moles/Vol] 136 mmol/L Normal 136-144 [facility] Comment on above: Order Comment: Speci men Type: BLOOD SPECIMENOrdering Facility: [facility] Address: [address] [place] [id number] Performed By: #### 2 4321-2, , 2776-02 ####[facility]ORATORYCLIA [id number] [place] [id number] [place] Urea nitrogen [Mass/Vol] 10 mg/dL Normal 7-21 [facility] Comment on above: Order Comment: Speci men Type: BLOOD SPECIMENOrdering Facility: [facility] Address: [address] [place] [id number] Performed By: #### 2 4321-2, , 2776-02 ####[facility] [facility]ORATORYCLIA [id number] [place] [id number] [place] CASE MGT INIT ASSESon 2023 CASE MGT INIT ASSES Normal [facility] CBC panel Auto (Bld)on 05-25 Erythrocyte distribution width (RBC) [Ratio] 13.3 % Normal 11.5-15.0 [facility] Comment on above: Order Comment: Speci men Type: BLOOD SPECIMENOrdering Facility: [facility] Address: [address] [place] [address] Performed By: #### 5 8410-2 ####[facility] LABORATORYCLIA [id number] [address] [place] Hematocrit (Bld) [Volume fraction] 33.8 % Low 36.0-46.0 [facility] Comment on above: Order Comment: Speci men Type: BLOOD SPECIMENOrdering Facility: [facility] Address: [address] [place] [address] Performed By: #### 5 8410-2 ####[facility] LABORATORYCLIA [id number] [place] [address] [place] Hemoglobin (Bld) [Mass/Vol] 11.5 g/dL Normal 11.5-15.5 [facility] Comment on above: Order Comment: Speci men Type: BLOOD SPECIMENOrdering Facility: [facility] Address: [address] [place] [address] Performed By: #### 5 8410-2 ####[facility] LABORATORYCLIA [id number] [place] [address] [place] MCH (RBC) [Entitic mass] 30.5 pg Normal 26.0-34.0 [facility] Comment on above: Order Comment: Speci men Type: BLOOD SPECIMENOrdering Facility: [facility] Address: [address] [place] [address] Performed By: #### 5 8410-2 ####[facility] LABORATORYCLIA [id number] [address] [place] MCHC (RBC) [Mass/Vol] 34.0 g/dL Normal 30.5-36.0 [facility] Comment on above: Order Comment: Speci men Type: BLOOD SPECIMENOrdering Facility: [facility] Address: [address] [place] [address] Performed By: #### 5 8410-2 ####[facility] LABORATORYCLIA [id number] [place] [address] [place] MCV (RBC) [Entitic vol] 89.7 fL Normal 80.0-100.0 [facility] Comment on above: Order Comment: Speci men Type: BLOOD SPECIMENOrdering Facility: [facility] Address: [address] [place] [address] Performed By: #### 5 8410-2 ####[facility] LABORATORYCLIA [id number] [place] [id number] [place] Nucleated RBC (Bld) [#/Vol] 10*3/uL Normal <0.01 [facility] Comment on above: Order Comment: Speci men Type: BLOOD SPECIMENOrdering Facility: [facility] Address: [address] [place] [address] Performed By: #### 5 8410-2 ####[facility] LABORATORYCLIA [id number] [place] [address] [place] Platelet mean volume (Bld) [Entitic vol] 11.7 fL Normal 9.0-12.7 [facility] Comment on above: Order Comment: Speci men Type: BLOOD SPECIMENOrdering Facility: [facility] Address: [address] [place] [address] Performed By: #### 5 8410-2 ####[facility] LABORATORYCLIA [id number] [place] [address] [place] Platelets (Bld) [#/Vol] 181 10*3/uL Normal 150-400 [facility] Comment on above: Order Comment: Speci men Type: BLOOD SPECIMENOrdering Facility: [facility] Address: [address] [place] [address] Performed By: #### 5 8410-2 ####[facility]ORATORYCLIA [id number] [place] [address] [place] RBC (Bld) [#/Vol] 3.77 10*6/uL Low 3.90-5.20 [facility] Comment on above: Order Comment: Speci men Type: BLOOD SPECIMENOrdering Facility: [facility] Address: [address] [place] [address] Performed By: #### 5 8410-2 ####[facility] [facility]ATORYCLIA [id number] [place] [address] [place] WBC (Bld) [#/Vol] 5.34 10*3/uL Normal 3.70-11.00 [facility] Comment on above: Order Comment: Speci men Type: BLOOD SPECIMENOrdering Facility: [facility] Address: [address] [place] [address] Performed By: #### 5 8410-2 ####[facility] [facility]ORATORYCLIA [id number] [place] [address] [place] Magnesium [facility]Pl[facility] Magnesium [Mass/Vol] 1.6 mg/dL Low 1.7-2.3 [facility] Comment on above: Order Comment: Speci men Type: BLOOD SPECIMENOrdering Facility: [facility] Address: [address] [place] [address] Performed By: #### 2 4321-2, 54213-9, 2777-1 ####[facility]ATORYCLIA [id number] [place] [id number] [place] NUTRITIONon 05-26-2023 NUTRITION Normal [facility] Phosphate SerPl-ncon 05-25 Phosphate [Mass/Vol] 4.5 mg/dL Normal 2.7-4.8 [facility] Comment on above: Order Comment: Speci men Type: BLOOD SPECIMENOrdering Facility: [facility] Address: [address] [place] [address] Performed By: #### 2 4321-2, 86220-2, 2777-1 ####[facility] [facility]ORATORYCLIA [id number] [place] [id number] [place] XR ABDOMEN 1V SUPINEon 05-25 XR ABDOMEN 1V SUPINE Normal [facility] ANES POSTPROC EVALon 024 ANES POSTPROC EVAL Normal [facility] ANES PRE-OPon 05-25-2023 ANES PRE-OP Normal [facility] HISTORY PHYSICALon HISTORY PHYSICAL Normal [facility] NURSING PROGon 05-25-2023 NURSING PROG Normal [facility] NURSING PROG Normal [facility] Upper GI endoscopyon 024 Upper GI endoscopy Normal [facility] CNPNon 05-24-2023 CNPN Normal [facility] Home Health Recordson 2023 Home Health Records [id number] 0E#1.00TIFF Normal [facility] Basic metabolic 2000 panelon 05-22-2023 Anion gap [Moles/Vol] 10 mmol/L Normal 9-18 [facility] Comment on above: Order Comment: Speci men Type: BLOOD SPECIMENOrdering Facility: [facility] Address: [address] [place] [address] Performed By: #### 2 4321-2, , 2776-02 ####[facility] [facility]ORATORYCLIA [id number] [place] [id number] [place] Calcium [Mass/Vol] 8.9 mg/dL Normal 8.5-10.2 [facility] Comment on above: Order Comment: Speci men Type: BLOOD SPECIMENOrdering Facility: [facility] Address: [address] [place], [place] [address] Performed By: #### 2 4321-2, , 2776-02 ####[facility]ORATORYCLIA [id number] [place] [address] [place] Chloride [Moles/Vol] 110 mmol/L High 97-105 [facility] Comment on above: Order Comment: Speci men Type: BLOOD SPECIMENOrdering Facility: [facility] Address: [address] [place] [id number] Performed By: #### 2 4321-2, , 2776-02 ####[facility] [facility]ORATORYCLIA [id number] [place] [address] [place] CO2 [Moles/Vol] 23 mmol/L Normal 22-30 [facility] Comment on above: Order Comment: Speci men Type: BLOOD SPECIMENOrdering Facility: [facility] Address: [address] [place] [address] Performed By: #### 2 4321-2, , 2776-02 ####[facility]ORATORYCLIA [id number] [place] [address] [place] Creatinine [Mass/Vol] 0.73 mg/dL Normal 0.58-0.96 [facility] Comment on above: Order Comment: Geraldo marrero Type: BLOOD SPECIMENOrdering Facility: [facility] Address: [address] [place] [address] Performed By: #### 2 4321-2, , 2776-02 ####[facility]ORATORYCLIA [id number] [place] [address] [facility] Creatinine and Glomerular filtration rate.predicted panel (S/P/Bld) 111 mL/min/1.73m??? Normal >=60 [facility] Comment on above: Order Comment: Geraldo marrero Type: BLOOD SPECIMENOrdering Facility: [facility] Address: [address] [place] [address] Result Comment: Jessica mated Glomerular Filtration Rate [...] Performed By: #### 2 4321-2, , 2776-02 ####[facility]ORATORYCLIA [id number] [place] [id number] [place] Glucose [Mass/Vol] 73 mg/dL Low 74-99 [facility] Comment on above: Order Comment: Geraldo marrero Type: BLOOD SPECIMENOrdering Facility: [facility] Address: [address] [place] [address] Result Comment: The [place] Diabetes Association (ADA) provides guidance for cutoff [...] Standards of Medical Care in Diabetes 2016, [place] [employer]. Diabetes Care. 2016.39(Suppl 1). Performed By: #### 2 4321-2, , 2776-02 ####[facility]ATORYCLIA [id number] [place] [address] [place] Potassium [Moles/Vol] 3.7 mmol/L Normal 3.7-5.1 [facility] Comment on above: Order Comment: Geraldo marrero Type: BLOOD SPECIMENOrdering Facility: [facility] Address: [address] [place] [address] Performed By: #### 2 4321-2, , 2776-02 ####[facility] [facility]ORATORYCLIA [id number] [place] [address] [place] Sodium [Moles/Vol] 143 mmol/L Normal 136-144 [facility] Comment on above: Order Comment: Geraldo marrero Type: BLOOD SPECIMENOrdering Facility: [facility] Address: [address] [place] [address] Performed By: #### 2 4321-2, , 2776-02 ####[facility]ORATORYCLIA [id number] [place] [address] [place] Urea nitrogen [Mass/Vol] 6 mg/dL Low 7-21 [facility] Comment on above: Order Comment: Speci men Type: BLOOD SPECIMENOrdering Facility: [facility] Address: [address] [place] [address] Performed By: #### 2 4321-2, , 2776-02 ####[facility]ORATORYCLIA [id number] [place] [id number] [place] CASE MANAGEMon 05-22-2023 CASE MANAGEM Normal [facility] CNDSon 05-22-2023 CNDS [facility] Magnesium SerPl-mCncon 05-21 Magnesium [Mass/Vol] 1.9 mg/dL Normal 1.7-2.3 [facility] Comment on above: Order Comment: Speci men Type: BLOOD SPECIMENOrdering Facility: [facility] Address: [address] [place] [address] Performed By: #### 2 4321-2, 04846-1, 2776-02 ####[facility]ORATORYCLIA [id number] [place] [address] [place] NUTRITIONon 05-22-2023 NUTRITION Normal [facility] Phosphate SerPl-mCncon 05-21 Phosphate [Mass/Vol] 4.3 mg/dL Normal 2.7-4.8 [facility] Comment on above: Order Comment: Speci men Type: BLOOD SPECIMENOrdering Facility: [facility] Address: [address] [place] [address] Performed By: #### 2 4321-2, , 2776-02 ####[facility]ORATORYCLIA [id number] [place] [id number] [place] Basic metabolic 2000 panelon 05-21-2023 Anion gap [Moles/Vol] 12 mmol/L Normal 9-18 [facility] Comment on above: Order Comment: Speci men Type: BLOOD SPECIMENOrdering Facility: [facility] Address: [address] [place] [address] Performed By: #### 2 4321-2, , 2776-02 ####[facility]ATORYCLIA [id number] [place] [id number] [place] Calcium [Mass/Vol] 8.8 mg/dL Normal 8.5-10.2 [facility] Comment on above: Order Comment: Speci men Type: BLOOD SPECIMENOrdering Facility: [facility] Address: [address] [place] [address] Performed By: #### 2 4321-2, , 2776-02 ####[facility]ORATORYCLIA [id number] [place] [address] [place] Chloride [Moles/Vol] 107 mmol/L High 97-105 [facility] Comment on above: Order Comment: Speci men Type: BLOOD SPECIMENOrdering Facility: [facility] Address: [address] [place] [address] Performed By: #### 2 4321-2, , 2776-02 ####[facility] LABORATORYCLIA [id number] [place] [address] [facility] CO2 [Moles/Vol] 19 mmol/L Low 22-30 [facility] Comment on above: Order Comment: Speci men Type: BLOOD SPECIMENOrdering Facility: [facility] Address: [address] [place] [address] Performed By: #### 2 4321-2, , 2776-02 ####[facility] LABORATORYCLIA [id number] [address] Creatinine [Mass/Vol] 0.72 mg/dL Normal 0.58-0.96 [facility] Comment on above: Order Comment: Speci men Type: BLOOD SPECIMENOrdering Facility: [facility] Address: [address] [place] [address] Performed By: #### 2 4321-2, , 2776-02 ####[facility] LABORATORYCLIA [id number] [address] Creatinine and Glomerular filtration rate.predicted panel (S/P/Bld) 113 mL/min/1.73m??? Normal >=60 [facility] Comment on above: Order Comment: Speci men Type: BLOOD SPECIMENOrdering Facility: [facility] Address: [address] [place] [address] Result Comment: Jessica mated Glomerular Filtration Rate [...] #### 2 4321-2, , 2776-02 ####[facility] LABORATORYCLIA [id number] [place] [id number] [place] Glucose [Mass/Vol] 85 mg/dL Normal 74-99 [facility] Comment on above: Order Comment: Lyssai men Type: BLOOD SPECIMENOrdering Facility: [facility] Address: [address] [place] [address] Result Comment: The [place] Diabetes Association (ADA) provides guidance for cutoff [...] Standards of Medical Care in Diabetes 2016, [place] [employer]. Diabetes Care. 2016.39(Suppl 1). Performed By: #### 2 4321-2, , 2776-02 ####[facility]ATORYCLIA [id number] [place] [id number] [place] Potassium [Moles/Vol] 3.8 mmol/L Normal 3.7-5.1 [facility] Comment on above: Order Comment: Geraldo marrero Type: BLOOD SPECIMENOrdering Facility: [facility] Address: [address] [place] [address] Performed By: #### 2 4321-2, , 2776-02 ####[facility]ORATORYCLIA [id number] [place] [id number] [place] Sodium [Moles/Vol] 138 mmol/L Normal 136-144 [facility] Comment on above: Order Comment: Lyssai men Type: BLOOD SPECIMENOrdering Facility: [facility] Address: [address] [place] [address] Performed By: #### 2 4321-2, , 2776-02 ####[facility]ATORYCLIA [id number] [place] [address] [place] Urea nitrogen [Mass/Vol] 5 mg/dL Low 7-21 [facility] Comment on above: Order Comment: Speci men Type: BLOOD SPECIMENOrdering Facility: [facility] Address: [address] [place], [place] [address] Performed By: #### 2 4321-2, , 2776-02 ####[facility]ATORYCLIA [id number] [place] [id number] [facility] [place] CASE MANAGEMon 05-21-2023 CASE MANAGEM Normal [facility] CASE MANAGEM Normal [facility] CASE MGT INIT ASSESon 2023 CASE MGT INIT [facility] Magnesium SerPl-mCncon 05-20 Magnesium [Mass/Vol] 1.9 mg/dL Normal 1.7-2.3 [facility] Comment on above: Order Comment: Speci men Type: BLOOD SPECIMENOrdering Facility: [facility] Address: [address] [place], [place] [address] Performed By: #### 2 4321-2, , 2776-02 ####[facility]ATORYCLIA [id number] [place] [id number] [place] NURSING PROGon 05-21-2023 NURSING PROG Normal [facility] Phosphate SerPl-mCncon 05-20 Phosphate [Mass/Vol] 4.1 mg/dL Normal 2.7-4.8 [facility] Comment on above: Order Comment: Speci men Type: BLOOD SPECIMENOrdering Facility: [facility] Address: [address] [place], [place] [address] Performed By: #### 2 4321-2, , 2776-02 ####[facility]ATORYCLIA [id number] [place] [address] [place] ALLIED HEALTHon 05-20-2023 ALLIED HEALTH Normal [facility] ANES POSTPROC EVALon 024 ANES POSTPROC EVAL Normal [facility] ANES PRE-OPon 05-20-2023 ANES PRE-OP Normal [facility] Bacteria Ur Culton 04-04-202 4 Bacteria identified Cx Nom (U) ORGANISM ID: 1 10,000 -<50,000 CFU/ml Normal urogenital annika Normal [facility] Comment on above: Performed By: #### 6 30-4 ####[facility] LABCLIA [id number] [place] [place] [address] [place] Basic metabolic 2000 panelon 05-20-2023 Anion gap [Moles/Vol] 12 mmol/L Normal 9-18 [facility] Comment on above: Order Comment: Speci men Type: BLOOD SPECIMENOrdering Facility: [facility] Address: [address] [place] [address] Performed By: #### 2 4321-2, , 2776-02 ####[facility]ATORYCLIA [id number] [place] [id number] [place] Calcium [Mass/Vol] 8.8 mg/dL Normal 8.5-10.2 [facility] Comment on above: Order Comment: Speci men Type: BLOOD SPECIMENOrdering Facility: [facility] Address: [address] [place] [address] Performed By: #### 2 4321-2, , 2776-02 ####[facility]ATORYCLIA [id number] [place] [id number] [place] Chloride [Moles/Vol] 109 mmol/L High 97-105 [facility] Comment on above: Order Comment: Speci men Type: BLOOD SPECIMENOrdering Facility: [facility] Address: [address] [place] [address] Performed By: #### 2 4321-2, , 2776-02 ####[facility]ATORYCLIA [id number] [place] [id number] [place] CO2 [Moles/Vol] 21 mmol/L Low 22-30 [facility] Comment on above: Order Comment: Speci men Type: BLOOD SPECIMENOrdering Facility: [facility] Address: [address] [place] [id number] Performed By: #### 2 4321-2, , 2776-02 ####[facility]ATORYCLIA [id number] [place] [address] [place] Creatinine [Mass/Vol] 0.75 mg/dL Normal 0.58-0.96 [facility] Comment on above: Order Comment: Geraldo marrero Type: BLOOD SPECIMENOrdering Facility: [facility] Address: [address] [place] [address] Performed By: #### 2 4321-2, , 2776-02 ####[facility]ATORYCLIA [id number] [place] [id number] [facility] Creatinine and Glomerular filtration rate.predicted panel (S/P/Bld) 107 mL/min/1.73m??? Normal >=60 [facility] Comment on above: Order Comment: Geraldo marrero Type: BLOOD SPECIMENOrdering Facility: [facility] Address: [address] [place] [address] Result Comment: Jessica mated Glomerular Filtration Rate [...] Performed By: #### 2 4321-2, , 2776-02 ####[facility]ATORYCLIA [id number] [place] [id number] [place] Glucose [Mass/Vol] 91 mg/dL Normal 74-99 [facility] Comment on above: Order Comment: Geraldo marrero Type: BLOOD SPECIMENOrdering Facility: [facility] Address: [address] [place] [address] Result Comment: The [place] Diabetes Association (ADA) provides guidance for cutoff [...] Standards of Medical Care in Diabetes 2016, [place] [employer]. Diabetes Care. 2016.39(Suppl 1). Performed By: #### 2 4321-2, , 2776-02 ####[facility]ATORYCLIA [id number] [place] [id number] [place] Potassium [Moles/Vol] 4.1 mmol/L Normal 3.7-5.1 [facility] Comment on above: Order Comment: Speci men Type: BLOOD SPECIMENOrdering Facility: [facility] Address: [address] [place] [address] Performed By: #### 2 4321-2, , 2776-02 ####[facility]ATORYCLIA [id number] [place] [id number] [place] Sodium [Moles/Vol] 142 mmol/L Normal 136-144 [facility] Comment on above: Order Comment: Speci men Type: BLOOD SPECIMENOrdering Facility: [facility] Address: [address] [place] [address] Performed By: #### 2 4321-2, , 2776-02 ####[facility]ATORYCLIA [id number] [place] [address] [place] Urea nitrogen [Mass/Vol] 6 mg/dL Low 7-21 [facility] Comment on above: Order Comment: Speci men Type: BLOOD SPECIMENOrdering Facility: [facility] Address: [address] [place] [address] Performed By: #### 2 4321-2, , 2776-02 ####[facility]ATORYCLIA [id number] [place] [id number] [place] CBC panel Auto (Bld)on 05-19 Erythrocyte distribution width (RBC) [Ratio] 12.9 % Normal 11.5-15.0 [facility] Comment on above: Order Comment: Speci men Type: BLOOD SPECIMENOrdering Facility: [facility] Address: [address] [place] [address] Performed By: #### 5 8410-2 ####[facility] LABORATORYCLIA [id number] [address] STATES [facility] Hematocrit (Bld) [Volume fraction] 36.0 % Normal 36.0-46.0 [facility] Comment on above: Order Comment: Speci men Type: BLOOD SPECIMENOrdering Facility: [facility] Address: [address] [place] [address] Performed By: #### 5 8410-2 ####[facility] LABORATORYCLIA [id number] [place] [address] [place] Hemoglobin (Bld) [Mass/Vol] 12.4 g/dL Normal 11.5-15.5 [facility] Comment on above: Order Comment: Speci men Type: BLOOD SPECIMENOrdering Facility: [facility] Address: [address] [place] [address] Performed By: #### 5 8410-2 ####[facility] LABORATORYCLIA [id number] [place] [address] [place] MCH (RBC) [Entitic mass] 30.8 pg Normal 26.0-34.0 [facility] Comment on above: Order Comment: Speci men Type: BLOOD SPECIMENOrdering Facility: [facility] Address: [address] [place] [address] Performed By: #### 5 8410-2 ####[facility] LABORATORYCLIA [id number] [address] [place] MCHC (RBC) [Mass/Vol] 34.4 g/dL Normal 30.5-36.0 [facility] Comment on above: Order Comment: Speci men Type: BLOOD SPECIMENOrdering Facility: [facility] Address: [address] [place] [address] Performed By: #### 5 8410-2 ####[facility] LABORATORYCLIA [id number] [address] [place] MCV (RBC) [Entitic vol] 89.6 fL Normal 80.0-100.0 [facility] Comment on above: Order Comment: Speci men Type: BLOOD SPECIMENOrdering Facility: [facility] Address: [address] [place] [address] Performed By: #### 5 8410-2 ####[facility] LABORATORYCLIA [id number] [place] [address] [place] Nucleated RBC (Bld) [#/Vol] 10*3/uL Normal <0.01 [facility] Comment on above: Order Comment: Speci men Type: BLOOD SPECIMENOrdering Facility: [facility] Address: [address] [place] [address] Performed By: #### 5 8410-2 ####[facility] LABORATORYCLIA [id number] [place] [address] [place] Platelet mean volume (Bld) [Entitic vol] 11.4 fL Normal 9.0-12.7 [facility] Comment on above: Order Comment: Speci men Type: BLOOD SPECIMENOrdering Facility: [facility] Address: [address] [place] [address] Performed By: #### 5 8410-2 ####[facility]ORATORYCLIA [id number] [place] [address] [place] Platelets (Bld) [#/Vol] 176 10*3/uL Normal 150-400 [facility] Comment on above: Order Comment: Speci men Type: BLOOD SPECIMENOrdering Facility: [facility] Address: [address] [place] [address] Performed By: #### 5 8410-2 ####[facility]ORATORYCLIA [id number] [place] [id number] [place] RBC (Bld) [#/Vol] 4.02 10*6/uL Normal 3.90-5.20 [facility] Comment on above: Order Comment: Speci men Type: BLOOD SPECIMENOrdering Facility: [facility] Address: [address] [place] [address] Performed By: #### 5 8410-2 ####[facility]ORATORYCLIA [id number] [place] [address] [place] WBC (Bld) [#/Vol] 2.51 10*3/uL Low 3.70-11.00 [facility] Comment on above: Order Comment: Speci men Type: BLOOD SPECIMENOrdering Facility: [facility] Address: [address] [place] [address] Performed By: #### 5 8410-2 ####[facility]ORYCL[facility] [id number] [place] [id number] [place] HISTORY PHYSICALon HISTORY PHYSICAL Normal [facility] Magnesium SerPl-ncon 05-19 Magnesium [Mass/Vol] 1.9 mg/dL Normal 1.7-2.3 [facility] Comment on above: Order Comment: Speci men Type: BLOOD SPECIMENOrdering Facility: [facility] Address: [address] [place] [address] Performed By: #### 2 4321-2, 06731-3, 2777- ####[facility]ORYCLIA [id number] [place] [id number] [place] NURSING PROGon 05-20-2023 NURSING PROG Normal [facility] NURSING PROG Normal [facility] NURSING PROG Normal [facility] NUTRITIONon 05-20-2023 NUTRITION Normal [facility] Phosphate SerPl-ncon 05-19 Phosphate [Mass/Vol] 3.8 mg/dL Normal 2.7-4.8 [facility] Comment on above: Order Comment: Speci men Type: BLOOD SPECIMENOrdering Facility: [facility] Address: [address] [place] [address] Performed By: #### 2 4321-2, 51123-6, 2777-1 ####[facility]ORYCLIA [id number] [place] [id number] [place] Upper GI endoscopyon 024 Upper GI endoscopy Normal [facility] XR ESOPHAGRAMon 05-20-2023 XR ESOPHAGRAM Normal [facility] Basic metabolic 2000 panelon 05-19-2023 Anion gap [Moles/Vol] 16 mmol/L Normal 9-18 [facility] Comment on above: Order Comment: Speci men Type: BLOOD SPECIMENOrdering Facility: [facility] Address: [address] [place] [address] Performed By: #### 2 4321-2 ####[facility]ORYCLIA [id number] [place] [address] [place] Calcium [Mass/Vol] 8.4 mg/dL Low 8.5-10.2 [facility] Comment on above: Order Comment: Speci men Type: BLOOD SPECIMENOrdering Facility: [facility] Address: [address] [place] [address] Performed By: #### 2 4321-2 ####[facility]ORYCLIA [id number] [place] [address] [place] Chloride [Moles/Vol] 104 mmol/L Normal 97-105 [facility] Comment on above: Order Comment: Speci men Type: BLOOD SPECIMENOrdering Facility: [facility] Address: [address] [place] [address] Performed By: #### 2 4321-2 ####[facility]ORYCLIA [id number] [place] [address] [place] CO2 [Moles/Vol] 15 mmol/L Low 22-30 [facility] Comment on above: Order Comment: Speci men Type: BLOOD SPECIMENOrdering Facility: [facility] Address: [address] [place] [address] Performed By: #### 2 4321-2 ####[facility]ORYCLIA [id number] [place] [id number] [place] Creatinine [Mass/Vol] 0.71 mg/dL Normal 0.58-0.96 [facility] Comment on above: Order Comment: Speci men Type: BLOOD SPECIMENOrdering Facility: [facility] Address: [address] [place] [address] Performed By: #### 2 4321-2 ####[facility]ORYCLIA [id number] [place] [id number] [place] Creatinine and Glomerular filtration rate.predicted panel (S/P/Bld) 115 mL/min/1.73m??? Normal >=60 [facility] Comment on above: Order Comment: Geraldo marrero Type: BLOOD SPECIMENOrdering Facility: [facility] Address: [address] [place] [address] Result Comment: Jessica mated Glomerular Filtration Rate [...] actual GFR. Performed By: #### 2 4321-2 ####[facility]ATORYCLIA [id number] [place] [id number] [place] Glucose [Mass/Vol] 73 mg/dL Low 74-99 [facility] Comment on above: Order Comment: Geraldo marrero Type: BLOOD SPECIMENOrdering Facility: [facility] Address: [address] [place] [address] Result Comment: The [place] [employer] (ADA) provides guidance for cutoff [...] Standards of Medical Care in Diabetes 2016, [place] [employer]. Diabetes Care. 2016.39(Suppl 1). Performed By: #### 2 4321-2 ####[facility]ORYCLIA [id number] [place] [id number] [place] Potassium [Moles/Vol] 4.1 mmol/L Normal 3.7-5.1 [facility] Comment on above: Order Comment: Geraldo marrero Type: BLOOD SPECIMENOrdering Facility: [facility] Address: [address] [place] [address] Performed By: #### 2 4321-2 ####[facility]ORATORYCLIA [id number] [place] [id number] [place] Sodium [Moles/Vol] 135 mmol/L Low 136-144 [facility] Comment on above: Order Comment: Speci men Type: BLOOD SPECIMENOrdering Facility: [facility] Address: [address] [place] [address] Performed By: #### 2 4321-2 ####[facility]ORATORYCLIA [id number] [place] [id number] [place] Urea nitrogen [Mass/Vol] 8 mg/dL Normal 7-21 [facility] Comment on above: Order Comment: Speci men Type: BLOOD SPECIMENOrdering Facility: [facility] Address: [address] [place] [address] Performed By: #### 2 4321-2 ####[facility]ORATORYCLIA [id number] [place] [id number] [place] CBC panel Auto (Bld)on 05-18 Erythrocyte distribution width (RBC) [Ratio] 12.6 % Normal 11.5-15.0 [facility] Comment on above: Order Comment: Speci men Type: BLOOD SPECIMENOrdering Facility: [facility] Address: [address] [place] [address] Performed By: #### 5 8410-2 ####[facility]ORATORYCLIA [id number] [address] [place] Hematocrit (Bld) [Volume fraction] 33.3 % Low 36.0-46.0 [facility] Comment on above: Order Comment: Speci men Type: BLOOD SPECIMENOrdering Facility: [facility] Address: [address] [place] [address] Performed By: #### 5 8410-2 ####[facility]ORATORYCLIA [id number] [place] [address] [place] Hemoglobin (Bld) [Mass/Vol] 11.2 g/dL Low 11.5-15.5 [facility] Comment on above: Order Comment: Speci men Type: BLOOD SPECIMENOrdering Facility: [facility] Address: [address] [place] [address] Performed By: #### 5 8410-2 ####[facility]ORATORYCLIA [id number] [address] MCH (RBC) [Entitic mass] 30.5 pg Normal 26.0-34.0 [facility] Comment on above: Order Comment: Speci men Type: BLOOD SPECIMENOrdering Facility: [facility] Address: [address] [place] [address] Performed By: #### 5 8410-2 ####[facility]ORATORYCLIA [id number] [address] MCHC (RBC) [Mass/Vol] 33.6 g/dL Normal 30.5-36.0 [facility] Comment on above: Order Comment: Speci men Type: BLOOD SPECIMENOrdering Facility: [facility] Address: [address] [place] [address] Performed By: #### 5 8410-2 ####[facility]ORATORYCLIA [id number] [address] MCV (RBC) [Entitic vol] 90.7 fL Normal 80.0-100.0 [facility] Comment on above: Order Comment: Speci men Type: BLOOD SPECIMENOrdering Facility: [facility] Address: [address] [place] [address] Performed By: #### 5 8410-2 ####[facility]ORATORYCLIA [id number] [address] Nucleated RBC (Bld) [#/Vol] 10*3/uL Normal <0.01 [facility] Comment on above: Order Comment: Speci men Type: BLOOD SPECIMENOrdering Facility: [facility] Address: [address] [place] [address] Performed By: #### 5 8410-2 ####[facility]ORATORYCLIA [id number] [address] [place] Platelet mean volume (Bld) [Entitic vol] 11.4 fL Normal 9.0-12.7 [facility] Comment on above: Order Comment: Speci men Type: BLOOD SPECIMENOrdering Facility: [facility] Address: [address] [place] [address] Performed By: #### 5 8410-2 ####[facility]ORYCLIA [id number] [place] [id number] [place] Platelets (Bld) [#/Vol] 150 10*3/uL Normal 150-400 [facility] Comment on above: Order Comment: Speci men Type: BLOOD SPECIMENOrdering Facility: [facility] Address: [address] [place] [address] Performed By: #### 5 8410-2 ####[facility]ATORYCLIA [id number] [place] [address] [place] RBC (Bld) [#/Vol] 3.67 10*6/uL Low 3.90-5.20 [facility] Comment on above: Order Comment: Speci men Type: BLOOD SPECIMENOrdering Facility: [facility] Address: [address] [place] [address] Performed By: #### 5 8410-2 ####[facility]ATORYCLIA [id number] [place] [id number] [place] WBC (Bld) [#/Vol] 3.57 10*3/uL Low 3.70-11.00 [facility] Comment on above: Order Comment: Speci men Type: BLOOD SPECIMENOrdering Facility: [facility] Address: [address] [place] [address] Performed By: #### 5 8410-2 ####[facility] [facility]ATORYCLIA [id number] [place] [id number] [place] NURSING PROGon 05-19-2023 NURSING PROG Normal [facility] NURSING PROG Normal [facility] NURSING PROG Normal [facility] NUTRITIONon 05-19-2023 NUTRITION Normal [facility] Urinalysis complete panel (U )on 05-19-2023 Bacteria LM.HPF (Urine sed) [#/Area] Few Abnormal None Seen [facility] Comment on above: Order Comment: Speci men Type: URINE SPECIMENOrdering Facility: [facility] Address: [address] [place] [address] Performed By: #### 2 4356-8 ####[facility]ORYCLIA [id number] [place] [address] [place] Bilirubin Ql (U) Negative Normal Negative [facility] Comment on above: Order Comment: Speci men Type: URINE SPECIMENOrdering Facility: [facility] Address: [address] [place] [address] Performed By: #### 2 4356-8 ####[facility]ORATORYCLIA [id number] [place] [address] [place] Clarity (Unsp spec) Turbid Abnormal Clear [facility] Comment on above: Order Comment: Speci men Type: URINE SPECIMENOrdering Facility: [facility] Address: [address] [place] [address] Performed By: #### 2 4356-8 ####[facility]ORATORYCLIA [id number] [place] [address] [place] Color (U) Yellow Normal Yellow [facility] Comment on above: Order Comment: Speci men Type: URINE SPECIMENOrdering Facility: [facility] Address: [address] [place] [address] Performed By: #### 2 4356-8 ####[facility]ORATORYCLIA [id number] [place] [address] [place] Epithelial cells LM.HPF (Urine sed) [#/Area] Moderate Normal [facility] Comment on above: Order Comment: Speci men Type: URINE SPECIMENOrdering Facility: [facility] Address: [address] [place] [address] Performed By: #### 2 4356-8 ####[facility]ORYCLIA [id number] [place] [address] [place] Glucose Test strip (U) [Mass/Vol] Negative Normal Trace, Negative [facility] Comment on above: Order Comment: Speci men Type: URINE SPECIMENOrdering Facility: [facility] Address: [address] [place] [address] Performed By: #### 2 4356-8 ####[facility]ORATORYCLIA [id number] [place] [address] [place] Hemoglobin Ql (U) Trace Normal Negative, Trace Fa [facility] Comment on above: Order Comment: Speci men Type: URINE SPECIMENOrdering Facility: [facility] Address: [address] [place] [address] Performed By: #### 2 4356-8 ####[facility]ORATORYCLIA [id number] [place] [address] [place] Ketones Ql (U) 2+ Abnormal Negative, Trace [facility] Comment on above: Order Comment: Speci men Type: URINE SPECIMENOrdering Facility: [facility] Address: [address] [place] [address] Performed By: #### 2 4356-8 ####[facility]ORATORYCLIA [id number] [address] [place] Leukocyte esterase Test strip Ql (U) 500 Patito/uL Abnormal Negative, 25 Patito/uL [facility] Comment on above: Order Comment: Speci men Type: URINE SPECIMENOrdering Facility: [facility] Address: [address] [place] [address] Performed By: #### 2 4356-8 ####[facility]ORATORYCLIA [id number] [address] [place] Nitrite Ql (U) Negative Normal Negative [facility] Comment on above: Order Comment: Speci men Type: URINE SPECIMENOrdering Facility: [facility] Address: [address] [place] [address] Performed By: #### 2 4356-8 ####[facility] [facility]ATORYCLIA [id number] [address] [place] pH (U) 6.0 [pH] Normal 5.0-8.0 [facility] Comment on above: Order Comment: Speci men Type: URINE SPECIMENOrdering Facility: [facility] Address: [address] [place] [address] Performed By: #### 2 4356-8 ####[facility]ATORYCLIA [id number] [place] [address] [place] Protein (U) [Mass/Vol] Negative Normal Trace, Negative [facility] Comment on above: Order Comment: Speci men Type: URINE SPECIMENOrdering Facility: [facility] Address: [address] [place] [address] Performed By: #### 2 4356-8 ####[facility]ATORYCLIA [id number] [place] [address] [place] RBC LM.HPF (Urine sed) [#/Area] /[HPF] Abnormal 0-3 /HPF [facility] Comment on above: Order Comment: Speci men Type: URINE SPECIMENOrdering Facility: [facility] Address: [address] [place] [address] Performed By: #### 2 4356-8 ####[facility]ATORYCLIA [id number] [place] [address] [place] Specific gravity (U) [Rel density] 1.012 Normal 1.005-1.030 [facility] Comment on above: Order Comment: Speci men Type: URINE SPECIMENOrdering Facility: [facility] Address: [address] [place] [address] Performed By: #### 2 4356-8 ####[facility]ATORYCLIA [id number] [address] [place] Urobilinogen Ql (U) Normal Normal Normal [facility] Comment on above: Order Comment: Speci men Type: URINE SPECIMENOrdering Facility: [facility] Address: [address] [place] [address] Performed By: #### 2 4356-8 ####[facility]ATORYCLIA [id number] [place] [address] [place] WBC LM.HPF (Urine sed) [#/Area] /[HPF] Abnormal 0-5 /HPF [facility] Comment on above: Order Comment: Speci men Type: URINE SPECIMENOrdering Facility: [facility] Address: [address] [place], [place] [address] Performed By: #### 2 4356-8 ####[facility]ATORYCLIA [id number] [place] [address] [place] .Interpretation:on HCV Ab IA Ql Comment Invalid Interpretation Code [facility] Comment on above: Result Comment: Not infected with HCV unless early or acute infection issuspected (which may be delayed in an immunocompromisedindividual), or other evidence exists to indicate HCV infection.Performed at: [facility]Qnmqeo7[address] [place], [place] [id number] PhD Cami Neri Performed By: #### 9 [id number], 83548541, 3921684, 4194802, 1681480199, 0413699, 1972062761, 0999804, 15743486 ####[place] [address] [place] [address] 25(OH)D3 [facility] 2023 25-hydroxyvitamin D3 [Mass/Vol] 36.1 ng/mL Normal 31.0-80.0 [facility] Comment on above: Order Comment: Speci men Type: BLOOD SPECIMENOrdering Facility: [facility] Address: [address] [place] [address] Performed By: #### 1 989-3 ####[facility] LABCLIA [id number] [place] [address] [place] Acute Hepatitis A B C Panelo n 05-18-2023 HAV IgM IA Ql Negative Invalid Interpretation Code Negative [facility] Comment on above: Performed By: #### 9 10963550, 35150200, 3925480, 0656204, 2366621113, 7707048, 2000190715, 4756217, 13202194 ####[facility] [address] [place] [address] HBV core IgM IA Ql Negative Invalid Interpretation Code Negative [facility] Comment on above: Performed By: #### 9 03000609, 04415996, 9954320, 3291215, 6760439295, 7251371, 4806203892, 2245927, 17380661 ####[facility] [address] [place] [address] HBV surface Ag IA Ql Negative Invalid Interpretation Code Negative [facility] Comment on above: Performed By: #### 9 82032208, 08462033, 8857136, 3902180, 7242926035, 1724989, 2819704013, 5703603, 26155522 ####[facility] [id number] [place] [address] HCV IgG IA Ql Non-Reactive Invalid Interpretation Code Non Reactive [facility] Comment on above: Result Comment: Perf ormed at: [facility] [address] [id number] PhD Cami Neri Performed By: #### 9 63489847, 42913192, 0601863, 2613298, 0622791912, 3641497, 8016572032, 3086524, 98291419 ####[facility] [address] [place] [id number] CBC W Auto Differential pane l (Bld)on 05-18-2023 Basophils (Bld) [#/Vol] 0.03 10*3/uL Normal <0.11 [facility] Comment on above: Order Comment: Speci men Type: BLOOD SPECIMENOrdering Facility: [facility] Address: [address] [place] [address] Performed By: #### 5 7021-8 ####[facility] [facility]ATORYCLIA [id number] [place] [address] [place] Basophils/100 WBC (Bld) 0.6 % Normal [facility] Comment on above: Order Comment: Speci men Type: BLOOD SPECIMENOrdering Facility: [facility] Address: [address] [place] [address] Performed By: #### 5 7021-8 ####[facility]ATORYCLIA [id number] [place] [address] [place] Differential cell count method Nom (Bld) Auto Normal [facility] Comment on above: Order Comment: Speci men Type: BLOOD SPECIMENOrdering Facility: [facility] Address: [address] [place] [address] Performed By: #### 5 7021-8 ####[facility] LABORATORYCLIA [id number] [place] [address] [place] Eosinophils (Bld) [#/Vol] 0.06 10*3/uL Normal <0.46 [facility] Comment on above: Order Comment: Speci men Type: BLOOD SPECIMENOrdering Facility: [facility] Address: [address] [place] [address] Performed By: #### 5 7021-8 ####[facility] LABORATORYCLIA [id number] [place] [address] [facility] [place] Eosinophils/100 WBC (Bld) 1.3 % Normal [facility] Comment on above: Order Comment: Speci men Type: BLOOD SPECIMENOrdering Facility: [facility] Address: [address] [place] [address] Performed By: #### 5 7021-8 ####[facility] LABORATORYCLIA [id number] [place] [address] [place] Erythrocyte distribution width (RBC) [Ratio] 13.1 % Normal 11.5-15.0 [facility] Comment on above: Order Comment: Speci men Type: BLOOD SPECIMENOrdering Facility: [facility] Address: [address] [place] [address] Performed By: #### 5 7021-8 ####[facility] LABORATORYCLIA [id number] [place] [address] [place] Hematocrit (Bld) [Volume fraction] 43.5 % Normal 36.0-46.0 [facility] Comment on above: Order Comment: Speci men Type: BLOOD SPECIMENOrdering Facility: [facility] Address: [address] [place] [address] Performed By: #### 5 7021-8 ####[facility] LABORATORYCLIA [id number] [place] [address] [place] Hemoglobin (Bld) [Mass/Vol] 14.8 g/dL Normal 11.5-15.5 [facility] Comment on above: Order Comment: Speci men Type: BLOOD SPECIMENOrdering Facility: [facility] Address: [address] [place] [address] Performed By: #### 5 7021-8 ####[facility] LABORATORYCLIA [id number] [place] [id number] [place] Immature granulocytes (Bld) [#/Vol] 10*3/uL Normal <0.10 [facility] Comment on above: Order Comment: Speci men Type: BLOOD SPECIMENOrdering Facility: [facility] Address: [address] [place] [address] Performed By: #### 5 7021-8 ####[facility] LABORATORYCLIA [id number] [place] [id number] [place] Immature granulocytes/100 WBC (Bld) 0.2 % Normal [facility] Comment on above: Order Comment: Speci men Type: BLOOD SPECIMENOrdering Facility: [facility] Address: [address] [place] [address] Performed By: #### 5 7021-8 ####[facility] LABORATORYCLIA [id number] [place] [id number] [place] Lymphocytes (Bld) [#/Vol] 1.27 10*3/uL Normal 1.00-4.00 [facility] Comment on above: Order Comment: Speci men Type: BLOOD SPECIMENOrdering Facility: [facility] Address: [address] [place] [address] Performed By: #### 5 7021-8 ####[facility] LABORATORYCLIA [id number] [place] [id number] [place] Lymphocytes/100 WBC (Bld) 26.5 % Normal [facility] Comment on above: Order Comment: Speci men Type: BLOOD SPECIMENOrdering Facility: [facility] Address: [address] [place] [address] Performed By: #### 5 7021-8 ####[facility] LABORATORYCLIA [id number] [place] [id number] [place] MCH (RBC) [Entitic mass] 30.4 pg Normal 26.0-34.0 [facility] Comment on above: Order Comment: Speci men Type: BLOOD SPECIMENOrdering Facility: [facility] Address: [address] [place] [address] Performed By: #### 5 7021-8 ####[facility] LABORATORYCLIA [id number] [address] [place] MCHC (RBC) [Mass/Vol] 34.0 g/dL Normal 30.5-36.0 [facility] Comment on above: Order Comment: Speci men Type: BLOOD SPECIMENOrdering Facility: [facility] Address: [address] [place] [address] Performed By: #### 5 7021-8 ####[facility] LABORATORYCLIA [id number] [address] [place] MCV (RBC) [Entitic vol] 89.3 fL Normal 80.0-100.0 [facility] Comment on above: Order Comment: Speci men Type: BLOOD SPECIMENOrdering Facility: [facility] Address: [address] [place] [address] Performed By: #### 5 7021-8 ####[facility] LABORATORYCLIA [id number] [address] Monocytes (Bld) [#/Vol] 0.26 10*3/uL Normal <0.87 [facility] Comment on above: Order Comment: Speci men Type: BLOOD SPECIMENOrdering Facility: [facility] Address: [address] [place] [address] Performed By: #### 5 7021-8 ####[facility] LABORATORYCLIA [id number] [address] [place] Monocytes/100 WBC (Bld) 5.4 % Normal [facility] Comment on above: Order Comment: Speci men Type: BLOOD SPECIMENOrdering Facility: [facility] Address: [address] [place] [address] Performed By: #### 5 7021-8 ####[facility] LABORATORYCLIA [id number] [place] [address] [place] Neutrophils (Bld) [#/Vol] 3.16 10*3/uL Normal 1.45-7.50 [facility] Comment on above: Order Comment: Speci men Type: BLOOD SPECIMENOrdering Facility: [facility] Address: [address] [place] [address] Performed By: #### 5 7021-8 ####[facility] LABORATORYCLIA [id number] [place] [id number] [place] Neutrophils/100 WBC (Bld) 66.0 % Normal [facility] Comment on above: Order Comment: Speci men Type: BLOOD SPECIMENOrdering Facility: [facility] Address: [address] [place] [address] Performed By: #### 5 7021-8 ####[facility] LABORATORYCLIA [id number] [place] [address] [place] Nucleated RBC (Bld) [#/Vol] 10*3/uL Normal <0.01 [facility] Comment on above: Order Comment: Speci men Type: BLOOD SPECIMENOrdering Facility: [facility] Address: [address] [place] [address] Performed By: #### 5 7021-8 ####OS[facility]DO LABORATORYCLIA [id number] [place] [address] [place] Nucleated RBC/100 WBC (Bld) [Ratio] 0.0 /100 WBC Normal [facility] Comment on above: Order Comment: Speci men Type: BLOOD SPECIMENOrdering Facility: [facility] Address: [address] [place] [address] Performed By: #### 5 7021-8 ####[facility] LABORATORYCLIA [id number] [place] [id number] [place] Platelet mean volume (Bld) [Entitic vol] 11.8 fL Normal 9.0-12.7 [facility] Comment on above: Order Comment: Speci men Type: BLOOD SPECIMENOrdering Facility: [facility] Address: [address] [place] [address] Performed By: #### 5 7021-8 ####[place] LABORATORYCLIA [id number] [place] [id number] [place] Platelets (Bld) [#/Vol] 226 10*3/uL Normal 150-400 [facility] Comment on above: Order Comment: Speci men Type: BLOOD SPECIMENOrdering Facility: [facility] Address: [address] [place] [address] Performed By: #### 5 7021-8 ####[place] LABORATORYCLIA [id number] [place] [id number] [place] RBC (Bld) [#/Vol] 4.87 10*6/uL Normal 3.90-5.20 [facility] Comment on above: Order Comment: Speci men Type: BLOOD SPECIMENOrdering Facility: [facility] Address: [address] [place] [address] Performed By: #### 5 7021-8 ####[facility] HOSPITALIA [id number] [place] [id number] [place] WBC (Bld) [#/Vol] 4.79 10*3/uL Normal 3.70-11.00 [facility] Comment on above: Order Comment: Speci men Type: BLOOD SPECIMENOrdering Facility: [facility] Address: [address] [place] [address] Performed By: #### 5 7021-8 ####[facility] LABORATORYCLIA [id number] [place] [id number] [place] CNPNon 05-18-2023 CNPN Normal [facility] CONSULTon 05-18-2023 CONSULT Normal [facility] COPPER BLOODon 05-18-2023 Copper [Mass/Vol] 91 ug/dL Normal 80-155 [facility] Comment on above: Order Comment: Speci men Type: BLOOD SPECIMENOrdering Facility: [facility] Address: [address] [place] [address] Result Comment: This test was developed and its performance characteristics determined by [facility]'s [facility] Pathology and Laboratory Medicine [place] ([facility]). It has not been cleared or approved by the FDA. [facility] is regulated under CLIA as qualified to perform high-complexity testing. This test is used for clinical purposes. It should not be regarded as investigational or for research. Performed By: #### C OPPER ####[facility] LABCLIA [id number] [place] [address] [facility] [place] Comprehensive metabolic 2000 panelon 05-18-2023 Albumin [Mass/Vol] 4.7 g/dL Normal 3.9-4.9 [facility] Comment on above: Order Comment: Speci men Type: BLOOD SPECIMENOrdering Facility: [facility] Address: [address] [place] [address] Performed By: #### 3 040-3, , ####[facility] LABORATORYCLIA [id number] [place] [id number] [place] ALP [Catalytic activity/Vol] 76 U/L Normal 34-123 [facility] Comment on above: Order Comment: Speci men Type: BLOOD SPECIMENOrdering Facility: [facility] Address: [address] [place] [address] Performed By: #### 3 040-3, , ####[facility] LABORATORYCLIA [id number] [place] [id number] [place] ALT [Catalytic activity/Vol] 19 U/L Normal 7-38 [facility] Comment on above: Order Comment: Speci men Type: BLOOD SPECIMENOrdering Facility: [facility] Address: [address] [place] [address] Performed By: #### 3 040-3, , ####[facility] LABORATORYCLIA [id number] [place] [id number] [place] Anion gap [Moles/Vol] 14 mmol/L Normal 9-18 [facility] Comment on above: Order Comment: Speci men Type: BLOOD SPECIMENOrdering Facility: [facility] Address: [address] [place] [address] Performed By: #### 3 040-3, , ####[facility] LABORATORYCLIA [id number] [place] [id number] [place] AST [Catalytic activity/Vol] 42 U/L High 13-35 [facility] Comment on above: Order Comment: Speci men Type: BLOOD SPECIMENOrdering Facility: [facility] Address: [address] [place] [address] Performed By: #### 3 040-3, , ####[facility] LABORATORYCLIA [id number] [place] [address] [place] Bilirubin [Mass/Vol] 0.4 mg/dL Normal 0.2-1.3 [facility] Comment on above: Order Comment: Speci men Type: BLOOD SPECIMENOrdering Facility: [facility] Address: [address] [place] [address] Performed By: #### 3 040-3, , ####[facility] LABORATORYCLIA [id number] [place] [address] [place] Calcium [Mass/Vol] 9.2 mg/dL Normal 8.5-10.2 [facility] Comment on above: Order Comment: Speci men Type: BLOOD SPECIMENOrdering Facility: [facility] Address: [address] [place] [address] Performed By: #### 3 040-3, , ####[facility] LABORATORYCLIA [id number] [place] [address] [place] Chloride [Moles/Vol] 106 mmol/L High 97-105 [facility] Comment on above: Order Comment: Speci men Type: BLOOD SPECIMENOrdering Facility: [facility] Address: [address] [place] [address] Performed By: #### 3 040-3, , ####[facility] LABORATORYCLIA [id number] [place] [address] [place] CO2 [Moles/Vol] 21 mmol/L Low 22-30 [facility] Comment on above: Order Comment: Speci men Type: BLOOD SPECIMENOrdering Facility: [facility] Address: [address] [place], [place] [address] [id number] Performed By: #### 3 040-3, , ####[facility] LABORATORYCLIA [id number] [place] [address] [place] [facility] Creatinine [Mass/Vol] 0.82 mg/dL Normal 0.58-0.96 [facility] Comment on above: Order Comment: Geraldo marrero Type: BLOOD SPECIMENOrdering Facility: [facility] Address: [address] [facility] [place] [id number] Performed By: #### 3 040-3, , ####[facility] LABORATORYCLIA [id number] [place] [id number] [place] Creatinine and Glomerular filtration rate.predicted panel (S/P/Bld) 96 mL/min/1.73m??? Normal >=60 [facility] Comment on above: Order Comment: Geraldo marrero Type: BLOOD SPECIMENOrdering Facility: [facility] Address: [address] [place] [address] Result Comment: Jessica mated Glomerular Filtration Rate [...] GFR. Performed By: #### 3 040-3, , ####[facility] LABORATORYCLIA [id number] [place] [id number] [place] Glucose [Mass/Vol] 79 mg/dL Normal 74-99 [facility] Comment on above: Order Comment: Geraldo marrero Type: BLOOD SPECIMENOrdering Facility: [facility] Address: [address] [place] [address] Result Comment: The [place] Diabetes Association (ADA) provides guidance for cutoff [...] Standards of Medical Care in Diabetes 2016, [place] [employer]. Diabetes Care. 2016.39(Suppl 1). Performed By: #### 3 040-3, , ####[facility] LABORATORYCLIA [id number] [place] [address] [place] Potassium [Moles/Vol] 4.3 mmol/L Normal 3.7-5.1 [facility] Comment on above: Order Comment: Speci men Type: BLOOD SPECIMENOrdering Facility: [facility] Address: [address] [place] [address] Performed By: #### 3 040-3, , ####[facility] LABORATORYCLIA [id number] [place] [id number] [place] Protein [Mass/Vol] 7.4 g/dL Normal 6.3-8.0 [facility] Comment on above: Order Comment: Speci men Type: BLOOD SPECIMENOrdering Facility: [facility] Address: [address] [place] [address] Performed By: #### 3 040-3, , ####[facility] LABORATORYCLIA [id number] [place] [id number] [place] Sodium [Moles/Vol] 141 mmol/L Normal 136-144 [facility] Comment on above: Order Comment: Speci men Type: BLOOD SPECIMENOrdering Facility: [facility] Address: [address] [place] [address] Performed By: #### 3 040-3, , ####[facility] LABORATORYCLIA [id number] [place] [address] [place] Urea nitrogen [Mass/Vol] 7 mg/dL Normal 7-21 [facility] Comment on above: Order Comment: Speci men Type: BLOOD SPECIMENOrdering Facility: [facility] Address: [address] [place] [address] Performed By: #### 3 040-3, 11529-4, 46736-5 ####[facility] LABORATORYCLIA [id number] [place] [id number] [place] Copper Lvlon 05-18-2023 Copper [Mass/Vol] 90 microgram/dL Invalid Interpretation Code 80-158 [facility] Comment on above: Result Comment: This test was developed and its performance characteristicsdetermined by [facility]. It has not been cleared or approvedby the Food and Drug Administration.Detection Limit = 5Performed at: Lixt[facility] SoftwareMeadowview Psychiatric HospitalHswqrzulni[address], [place] [id number] MD Jhonathan Dai Performed By: #### 9 18321716, 19485889, 6319981, 7401261, [id number], 3005433, [id number], 6590060, 74788208 ####[facility] [address] [place] [address] ED PROV NOTEon 05-18-2023 ED PROV NOTE Normal [facility] Folate SerPl-mCncon 05-18-19 24 Folate [Mass/Vol] 10.3 ng/mL Normal >4.7 [facility] Comment on above: Order Comment: Speci men Type: BLOOD SPECIMENOrdering Facility: [facility] Address: [address] [place] [address] Performed By: #### 1 4338-8, 3034-6, 2284-8, 03267-8, 2132-9 ####[facility] LABCLIA [id number] [place] [id number] [place] HIV Screen 4th Generation wR fxon 05-18-2023 HIV 1+2 Ab+HIV1 p24 Ag IA Ql Non-Reactive Invalid Interpretation Code Non Reactive [facility] Comment on above: Result Comment: HIV NegativeHIV-1/HIV-2 antibodies and HIV-1 p24 antigen were NOT detected.There is no laboratory evidence of HIV infection.Performed at: [facility]CareXhmifu[address] [place], [place] [id number] PhD Cami Nrei Performed By: #### 9 [id number], 94706095, 6856507, 0100427, [id number], 2135168, 1987357232, 6410358, 50770313 ####[facility] [address] [place] [address] Iron and Iron binding capaci ty panelon 05-18-2023 Iron [Mass/Vol] 81 ug/dL Normal 41-186 [facility] Comment on above: Order Comment: Speci men Type: BLOOD SPECIMENOrdering Facility: [facility] Address: [address] [place] [address] Performed By: #### 1 4338-8, 3034-6, 4-8, 64884-4, 2131-10 ####[facility] LABIA [id number] [place] [address] [place] Iron binding capacity [Mass/Vol] 292 ug/dL Normal 232-386 [facility] Comment on above: Order Comment: Speci men Type: BLOOD SPECIMENOrdering Facility: [facility] Address: [facility] [place] [address] Performed By: #### 1 4338-8, 3034-6, 4-8, 33461-9, 2131-10 ####[facility] LABIA [id number] [place] [id number] [place] Iron/TIBC [Molar ratio] 27.7 % Normal 15.0-57.0 [facility] Comment on above: Order Comment: Speci men Type: BLOOD SPECIMENOrdering Facility: [facility] Address: [address] [place], [place] [address] [address] Performed By: #### 1 4338-8, 3034-6, 2284-8, 84608-2, 2131-10 ####[facility] LABCLIA [id number] [place] [id number] [place] Lipase SerPl-cCncon 05-18-19 24 Lipase [Catalytic activity/Vol] 37 U/L Normal 16-61 [facility] Comment on above: Order Comment: Speci men Type: BLOOD SPECIMENOrdering Facility: [facility] Address: [address] [place] [address] Performed By: #### 3 040-3, 85571-1, 49083-2 ####[facility] LABORATORYCLIA [id number] [place] [id number] [place] Magnesium SerPl-mCncon 05-17 Magnesium [Mass/Vol] 2.1 mg/dL Normal 1.7-2.3 [facility] Comment on above: Order Comment: Speci men Type: BLOOD SPECIMENOrdering Facility: [facility] Address: [address] [place] [address] Performed By: #### 3 040-3, 24668-6, 25961-9 ####[facility] LABORATORYCLIA [id number] [place] [id number] [place] NURSING PROGon 05-18-2023 NURSING PROG Normal [facility] Prealb SerPl-mCncon 05-18-19 24 Prealbumin [Mass/Vol] 13 mg/dL Low 17-36 [facility] Comment on above: Order Comment: Speci men Type: BLOOD SPECIMENOrdering Facility: [facility] Address: [address] [place] [address] Performed By: #### 1 4338-8, 3034-6, 2284-8, 25994-6, 2131-10 ####[facility] LABCLIA [id number] [address] [place] Transferrin SerPl-mCncon Transferrin [Mass/Vol] 239 mg/dL Normal 200-360 [facility] Comment on above: Order Comment: Speci men Type: BLOOD SPECIMENOrdering Facility: [facility] Address: [address] [place] [address] Performed By: #### 1 4338-8, 3034-6, 2284-8, 21331-3, 9 ####[facility] LABCLIA [id number] [place] [id number] [place] VITAMIN B1 PLASMAon 05-18-19 24 VITAMIN B1, PLASMA 5 nmol/L Normal 4-15 [facility] Comment on above: Order Comment: Speci men Type: BLOOD SPECIMENOrdering Facility: [facility] Address: [address] [place] [address] Result Comment: INTE RPRETIVE DATA: Vitamin B1, PlasmaThiamine (vitamin B1) is reported. However, thiamine diphosphate(TDP), the biologically active form of thiamine, is not found inmeasurable concentrations in plasma, and is best determined inwhole blood specimens. Plasma thiamine concentration reflectsrecent intake rather than body stores.This test was developed and its performance characteristicsdetermined by [employer]. It has not been cleared orapproved by the [place] Food and Drug Administration. This test wasperformed in a CLIA certified laboratory and is intended forclinical purposes.Performed By: [employer] [place] [address]Jpnzckvnho Director: Kirt Murphy MD, PhDCLIA Number: [id number] Performed By: #### P VITB1 ####[facility] [id number] [place] [address] VITAMIN B6/PYRIDOXINon 05-17 VITAMIN B6 39.1 nmol/L Normal 20.0-125.0 [facility] Comment on above: Order Comment: Speci men Type: BLOOD SPECIMENOrdering Facility: [facility] Address: [address] [place] [address] Result Comment: INTE RPRETIVE INFORMATION: Vitamin B6 (Pyridoxal 5-Phosphate)Pyridoxal 5'-phosphate measured in a specimen collected followingan 8-hour or overnight fast accurately indicates vitamin S7ncqervspdxm status. Non-fasting specimen concentration reflectsrecent vitamin intake.This test was developed and its performance characteristicsdetermined by [employer]. It has not been cleared orapproved by the [place] Food and Drug Administration. This test wasperformed in a CLIA certified laboratory and is intended forclinical purposes.Performed By: [employer] [place], [place] [address]Kvvjllkawo Director: Kirt Murphy MD, PhDCLIA Number: [id number] Performed By: #### V ITB6 ####[facility] [id number] [place] [address] Vit A SerPl-mCncon 4 Retinol [Mass/Vol] 0.17 mg/L Low 0.30-1.20 [facility] Comment on above: Order Comment: Speci men Type: BLOOD SPECIMENOrdering Facility: [facility] Address: [address] [place] [address] Result Comment: This test was developed and its performance characteristics determined by [facility]'s [facility] [place] ([facility]). It has not been cleared or approved by the FDA. [facility] is regulated under CLIA as qualified to perform high-complexity testing. This test is used for clinical purposes. It should not be regarded as investigational or for research. Performed By: #### 2 923-1 ####[facility] LABCLIA [id number] [place] [address] [place] Vit B12 SerPl-mCncon 024 Cobalamin (Vitamin B12) [Mass/Vol] 1155 pg/mL Normal 232-1245 [facility] Comment on above: Order Comment: Speci men Type: BLOOD SPECIMENOrdering Facility: [facility] Address: [address] [place] [address] Performed By: #### 1 4338-8, 3034-6, 2284-8, 13178-0, 2132-9 ####[facility] LABCLIA [id number] [place] [id number] [place] ZINC, WHOLE BLOODon 05-18-19 24 ZINC, WHOLE BLOOD 670.6 ug/dL Normal 440.0-860.0 [facility] Comment on above: Order Comment: Speci men Type: BLOOD SPECIMENOrdering Facility: [facility] Address: [address] [place] [address] Result Comment: INTE RPRETIVE DATA: Zinc Quantitative, [...] was developed and its performance characteristicsdetermined by [employer]. It has not been cleared orapproved by the [place] Food and Drug Administration. This test wasperformed in a CLIA certified laboratory and is intended forclinical purposes.Performed By: [facility] [address] [place], [place] [address]Fcrbqbnzjj Director: Kirt Murphy MD, PhDCLIA Number: [id number] Performed By: #### Z INCWB ####[facility] [id number] [place] [address] CBC w/ Auto Diffon 4 Basophils/100 WBC (Bld) 0.7 % Normal 0.0-2.0 [facility] Comment on above: Performed By: #### 2 998060, 3540679, 1795735, 04984342 ####[facility] [address] [place] [address] Basophils/Leukocyte s Auto (Bld) [Pure # fraction] 0.0 E9/L Normal 0.0-0.2 [facility] Comment on above: Performed By: #### 2 815726, 9434658, 1685878, 44372931 ####[facility] [address] [place] [address] Eosinophils (Bld) [#/Vol] 0.1 E9/L Normal 0.0-0.5 [facility] Comment on above: Performed By: #### 2 089381, 9638333, 3993790, 56761689 ####[facility] [address] [place] [address] Eosinophils/100 WBC (Bld) 1.9 % Normal 0.0-8.0 [facility] Comment on above: Performed By: #### 2 986210, 4705655, 0393834, 21067805 ####[facility] [address] [place] [address] Erythrocyte distribution width (RBC) [Ratio] 14.1 % Normal 10.9-14.2 [facility] Comment on above: Performed By: #### 2 283499, 4231298, 4281310, 21802285 ####[address] [address] Hematocrit (Bld) [Volume fraction] 41.1 % Normal 34.0-46.0 [facility] Comment on above: Performed By: #### 2 965131, 9833609, 8033622, 90000670 ####[address] [address] Hemoglobin (Bld) [Mass/Vol] 13.7 g/dL Normal 12.0-16.0 [facility] Comment on above: Performed By: #### 2 507836, 5838036, 2389845, 50981417 ####[address] [address] Lymphocytes (Bld) [#/Vol] 1.4 E9/L Normal 1.0-4.0 [facility] Comment on above: Performed By: #### 2 802585, 0599763, 3006585, 34958631 ####[address] [address] Lymphocytes/100 WBC (Bld) 38.9 % Normal 14.0-50.0 [facility] Comment on above: Performed By: #### 2 271924, 7735062, 7209264, 62780153 ####[address] [address] MCH (RBC) [Entitic mass] 29.8 pg Normal 27.0-34.0 [facility] Comment on above: Performed By: #### 2 758088, 1716445, 9403488, 29667565 ####[address] [address] MCHC (RBC) [Mass/Vol] 33.3 g/dL Normal 31.4-36.0 [facility] Comment on above: Performed By: #### 2 466925, 3086641, 6292173, 84855544 ####[facility] [address] [place] [address] MCV (RBC) [Entitic vol] 89.5 fL Normal 80.0-100.0 [facility] Comment on above: Performed By: #### 2 393168, 5974194, 5222332, 54988630 ####[place] [address] [place] [address] Monocytes (Bld) [#/Vol] 0.2 E9/L Normal 0.2-1.0 [facility] Comment on above: Performed By: #### 2 611225, 1528902, 1547599, 49207424 ####[address] [address] Neutrophils (Bld) [#/Vol] 1.9 E9/L Low 2.0-7.5 [facility] Comment on above: Performed By: #### 2 034021, 2664551, 1724033, 60792619 ####[address] [address] Neutrophils/100 WBC (Bld) 52.6 % Normal 36.0-75.0 [facility] Comment on above: Performed By: #### 2 619887, 2299892, 3920704, 18146693 ####[address] [address] Platelet 195.0 E9/L Normal 150.0-500.0 [facility] Comment on above: Performed By: #### 2 791902, 1326202, 1510315, 75829958 ####[place] [address] [place] [address] Platelet mean volume (Bld) [Entitic vol] 9.0 fL Normal 6.4-10.8 [facility] Comment on above: Performed By: #### 2 360722, 0864812, 6795564, 56070355 ####[facility] [address] [place] [address] RBC (Bld) [#/Vol] 4.6 E12/L Normal 4.3-5.9 [facility] Comment on above: Performed By: #### 2 199662, 9198028, 4683857, 90678366 ####[facility] [address] [place] [address] WBC corrected for nucl RBC Auto (Bld) [#/Vol] 3.6 E9/L Low 4.0-11.0 [facility] Comment on above: Performed By: #### 2 210065, 4055159, 4557800, 92219583 ####[facility] [address] [place] [address] CHEMISTRYOrdered By: SYSTEM SYSTEM on 05-17-2023 Albumin [...] 05-17-2023 Albumin [Mass/Vol] 4.5 g/dL Normal 3.3-5.0 [facility] Comment on above: Performed By: #### 2 319135, 9035312, 6236370, 26266488 ####[facility] [address] [place] [address] Albumin/Globulin (S) [Mass conc ratio] 1.6 Normal 1.1-2.2 [facility] Comment on above: Performed By: #### 2 261903, 1955320, 6017091, 23770539 ####[facility] [address] [place] [address] ALP [Catalytic activity/Vol] 61 Int._Unit/L Normal 21-98 [facility] Comment on above: Performed By: #### 2 498935, 7827180, 1514887, 59831509 ####[facility] [address] [place] [address] ALT No additional P-5'-P [Catalytic activity/Vol] 17 Int._Unit/L Normal 6-46 [facility] Comment on above: Performed By: #### 2 796002, 2910769, 4257137, 66883184 ####[facility] [address] [place] [address] Anion gap [Moles/Vol] 12 mmol/L Normal 6-16 [facility] Comment on above: Performed By: #### 2 164755, 5440138, 1440749, 10295607 ####[facility] [address] [place] [address] AST [Catalytic activity/Vol] 30 Int._Unit/L Normal 5-43 [facility] Comment on above: Performed By: #### 2 487607, 1930144, 0864435, 75009875 ####[facility] [address] [place] [address] Bilirubin [Mass/Vol] 0.5 mg/dL Normal 0.0-1.1 [facility] Comment on above: Performed By: #### 2 967121, 6551712, 1667858, 54060257 ####[facility] [address] [place] [address] Calcium [Mass/Vol] 9.2 mg/dL Normal 8.9-11.1 [facility] Comment on above: Performed By: #### 2 633737, 3391678, 7977677, 81236709 ####[facility] [address] [place] [address] Chloride [Moles/Vol] 106 mmol/L Normal 101-111 [facility] Comment on above: Performed By: #### 2 006776, 8702696, 6798078, 97584646 ####[facility] [address] [place]Nconne[place] [address] CO2 [Moles/Vol] 24 mmol/L Normal 21-31 [facility] Comment on above: Performed By: #### 2 314635, 6832498, 0434193, 13148042 ####[facility] [address] AveNconnecticut [place] [address] Creatinine [Mass/Vol] 0.9 mg/dL Normal 0.5-1.3 [facility] Comment on above: Performed By: #### 2 241037, 1119722, 3434062, 03993152 ####[facility] [address] [place] [address] Globulin (S) [Mass/Vol] 2.9 g/dL Normal 1.4-4.0 [facility] Comment on above: Performed By: #### 2 043105, 1686514, 6713879, 14123431 ####[facility] [address] [place] [address] Glucose [Mass/Vol] 80 mg/dL Normal 55-199 [facility] Comment on above: Performed By: #### 2 990291, 4854349, 4779585, 77254723 ####[facility] [address] [place] [address] Potassium [Moles/Vol] 3.8 mmol/L Normal 3.5-5.3 [facility] Comment on above: Performed By: #### 2 719073, 1429702, 0487652, 24635929 ####[facility] [address] [place] [address] Protein [Mass/Vol] 7.4 g/dL Normal 6.0-7.8 [facility] Comment on above: Performed By: #### 2 380392, 6080358, 7930868, 59326534 ####[facility] [address] [place] [address] Sodium [Moles/Vol] 138 mmol/L Normal 135-145 [facility] Comment on above: Performed By: #### 2 719467, 4939554, 4728268, 09010842 ####[facility] [address] [place] [address] Urea nitrogen [Mass/Vol] 6 mg/dL Normal 5-21 [facility] Comment on above: Performed By: #### 2 023922, 4294865, 9750789, 84278495 ####[facility] [address] [place] [address] Urea nitrogen/Creatinine [Mass ratio] 7 No Units Low 10- [facility] Comment on above: Performed By: #### 2 211264, 3206231, 7330504, 46667638 ####[facility] [address] [place] [address] Consent for Treatmenton Consent for Treatment [id number] 906#1.00TIFF Normal [facility] Discharge Instructionson Discharge Instructions [id number] 524#1.00TIFF Normal [facility] ED Clinical Summaryon 2023 ED Clinical Summary Normal Kirsty ahumada [facility] ED Note-Physicianon 05-17-19 ED Note-Physician Normal [facility] Comment on above: Result Comment: Elec tronically Signed By: Tiffani Cunningham PA-C\.br\Date and Time Signed: 05/17/23 15:46 EDT\.br\Electronically Co-Signed By: Ashutosh Albright M.D.\.br\Date and Time Co-Signed: 05/17/23 17:49 EDT ED Patient Education Noteon 05-17-2023 ED Patient Education Note Normal [facility] ED Patient Summaryon ED Patient Summary Normal [facility] HEMATOLOGYOrdered By: SYSTEM SYSTEM on 05-17-2023 Basophils/100 [...] 05-17-2023 Magnesium [Mass/Vol] 2.1 mg/dL Normal 1.3-2.4 [facility] Comment on above: Performed By: #### 2 295389, 7717366, 7380455, 55496639 ####[facility] [address] [place] [address] Population Healthon 05-17-19 24 Population Health Normal [facility] Pre-Arrival Noteon 4 Pre-Arrival Note Normal [facility] eGFRon 05-17-2023 eGFR 86 mL/min/1.73 m2 Normal >=59 [facility] Comment on above: Order Comment: Order added by Discern Expert. Performed By: #### 2 864043, 2477949, 5915473, 06871379 ####[facility] [address] [place] [address] BMPon 05-14-2023 Anion gap [Moles/Vol] 8 mmol/L Normal 6-16 [facility] Comment on above: Performed By: #### 9 30219190, 57934437, 6221377, 0782716, 6326189124, 1153454, 0072118534, 4639854, 37535954 ####[facility] [address] [place] [address] Calcium [Mass/Vol] 8.6 mg/dL Low 8.9-11.1 [facility] Comment on above: Performed By: #### 9 77431703, 00563326, 2662221, 9815489, 5023952758, 4127973, 3490641707, 2726470, 91742233 ####[facility] [address] [place] [address] Chloride [Moles/Vol] 110 mmol/L Normal 101-111 [facility] Comment on above: Performed By: #### 9 10164104, 23361018, 3035861, 4078200, 0954284228, 2108269, 0908640735, 7523253, 98285318 ####[facility] [address] [place] [address] CO2 [Moles/Vol] 26 mmol/L Normal 21-31 [facility] Comment on above: Performed By: #### 9 84158474, 50565250, 4425305, 1167898, 4406402622, 3373362, 5269485686, 4518678, 90820758 ####[facility] [address] [place] [address] Creatinine [Mass/Vol] 0.9 mg/dL Normal 0.5-1.3 [facility] Comment on above: Performed By: #### 9 27191146, 75766535, 9794928, 1270954, 9151893436, 7176796, 7303502089, 5204098, 71968801 ####[facility] [address] [place] [address] Glucose [Mass/Vol] 96 mg/dL Normal 55-199 [facility] Comment on above: Performed By: #### 9 41261848, 35267526, 3948689, 6326066, 4273858568, 7227492, 3263613611, 0699682, 68819246 ####[facility] [address] [place] [address] Potassium [Moles/Vol] 4.0 mmol/L Normal 3.5-5.3 [facility] Comment on above: Performed By: #### 9 39594752, 20331512, 0225517, 2506087, 5341919775, 8182146, 8946899106, 7812413, 01088956 ####[address] [place] [address] Sodium [Moles/Vol] 140 mmol/L Normal 135-145 [facility] Comment on above: Performed By: #### 9 85893390, 36139151, 1117978, 0740121, 3385323330, 9886617, 0931223627, 4232963, 00694300 ####[facility] [address] [place] [address] Urea nitrogen [Mass/Vol] 5 mg/dL Normal 5-21 [facility] Comment on above: Performed By: #### 9 27207703, 56961464, 2318455, 2252806, 7974203954, 6213963, 2845810280, 7493778, 45488742 ####[facility] [address] [place] [address] Urea nitrogen/Creatinine [Mass ratio] 6 No Units Low 10-20 [facility] Comment on above: Performed By: #### 9 64354326, 10621741, 1123846, 2774762, 2810417519, 8953707, 7866435823, 1976374, 17711558 ####[facility] [address] [place] [address] CBC w/ Auto Diffon 4 Basophils/100 WBC (Bld) 1.4 % Normal 0.0-2.0 [facility] Comment on above: Performed By: #### 9 15378522, 03567779, 4038189, 2093223, 7877592164, 0344658, 5141722044, 2543514, 09039657 ####[address] [address] Basophils/Leukocyte s Auto (Bld) [Pure # fraction] 0.0 E9/L Normal 0.0-0.2 [facility] Comment on above: Performed By: #### 9 55051184, 49748211, 9695502, 8314664, 7176951793, 3716755, 8761588318, 5771640, 60538460 ####[address] [address] Eosinophils (Bld) [#/Vol] 0.1 E9/L Normal 0.0-0.5 [facility] Comment on above: Performed By: #### 9 36202958, 28633986, 1259775, 0012946, 0974120246, 2738982, 2168029602, 6956713, 36031229 ####[address] [place] [address] Eosinophils/100 WBC (Bld) 6.1 % Normal 0.0-8.0 [facility] Comment on above: Performed By: #### 9 81570803, 67051457, 8715043, 1017989, 6883492064, 4076114, 4785450152, 7424706, 70879360 ####[address] [place] [address] Erythrocyte distribution width (RBC) [Ratio] 14.4 % High 10.9-14.2 [facility] Comment on above: Performed By: #### 9 53262511, 14287702, 8005642, 5241054, 5136111484, 5961078, 7449651898, 7163942, 74180618 ####[address] [address] Hematocrit (Bld) [Volume fraction] 36.1 % Normal 34.0-46.0 [facility] Comment on above: Performed By: #### 9 63464186, 08533751, 9636374, 7427065, 4776941108, 2813319, 4102893984, 8803365, 18975601 ####[address] [address] Hemoglobin (Bld) [Mass/Vol] 12.2 g/dL Normal 12.0-16.0 [facility] Comment on above: Performed By: #### 9 16965456, 80923126, 4444245, 4745282, 2239642423, 6427298, 6148761056, 0719996, 88186354 ####[address] [address] Lymphocytes (Bld) [#/Vol] 1.1 E9/L Normal 1.0-4.0 [facility] Comment on above: Performed By: #### 9 62235744, 31278868, 7528317, 4591512, 4604422555, 3597366, 7384686088, 3661562, 64395917 ####[address] [address] Lymphocytes/100 WBC (Bld) 51.0 % High 14.0-50.0 [facility] Comment on above: Performed By: #### 9 03133882, 64769385, 2702414, 0649560, 8670952502, 5022795, 3253650890, 6664846, 19881135 ####[address] [place] [address] MCH (RBC) [Entitic mass] 30.3 pg Normal 27.0-34.0 [facility] Comment on above: Performed By: #### 9 86187212, 79847197, 1077396, 2871977, 1286169617, 5574678, 9641291727, 4289868, 87407385 ####[place] [place] MCHC (RBC) [Mass/Vol] 33.9 g/dL Normal 31.4-36.0 [facility] Comment on above: Performed By: #### 9 74895975, 73649806, 9357730, 9405359, 3277963574, 7324251, 6283270284, 3591966, 92953749 ####[place] [address] MCV (RBC) [Entitic vol] 89.3 fL Normal 80.0-100.0 [facility] Comment on above: Performed By: #### 9 30834888, 46780585, 9728582, 8629251, 3554538265, 9113761, 4013039863, 7428836, 33577755 ####[place] [address] Monocytes (Bld) [#/Vol] 0.1 E9/L Low 0.2-1.0 [facility] Comment on above: Performed By: #### 9 35560777, 91474903, 5333175, 3769092, 4025710436, 0023005, 0346615287, 0190571, 91175448 ####[address] [address] Neutrophils (Bld) [#/Vol] 0.8 E9/L Low 2.0-7.5 [facility] Comment on above: Performed By: #### 9 91566780, 50543420, 3126782, 7305320, 9783448177, 4455538, 1100060314, 2000315, 92043913 ####[address] [place] [address] Neutrophils/100 WBC (Bld) 36.8 % Normal 36.0-75.0 [facility] Comment on above: Performed By: #### 9 96023098, 71468244, 1628223, 8940407, 0366846488, 4855773, 5276284471, 7322948, 27523004 ####[address] [address] Platelet mean volume (Bld) [Entitic vol] 9.3 fL Normal 6.4-10.8 [facility] Comment on above: Performed By: #### 9 96909473, 23925423, 4019279, 8642602, 2318696224, 6723917, 6242728900, 1490589, 42036742 ####[address] [address] Platelets (Bld) [#/Vol] 167.0 E9/L Normal 150.0-500.0 [facility] Comment on above: Performed By: #### 9 08170391, 64785168, 8315600, 9002515, 4689748855, 6860158, 7427655697, 4462098, 32213322 ####[address] [address] RBC (Bld) [#/Vol] 4.0 E12/L Low 4.3-5.9 [facility] Comment on above: Performed By: #### 9 71505656, 58148879, 2491020, 3663444, 0298628401, 7355746, 9277989218, 4945159, 83976329 ####[address] [address] WBC corrected for nucl RBC Auto (Bld) [#/Vol] 2.1 E9/L Low 4.0-11.0 [facility] Comment on above: Result Comment: Resu lts consistant with previous path review on 05/13/23, reviewed by KVNG Performed By: #### 9 58138756, 18562413, 6360112, 9366097, 2139027088, 8714701, 2346785120, 2117327, 57987769 ####[facility] [address] [place] [address] CHEMISTRYOrdered By: SYSTEM SYSTEM on 05-14-2023 Anion [...] Chem Consultation Noteon 05-14-19 Consultation Note Normal [facility] Comment on above: Result Comment: Elec tronically Signed By: Miguel JOHNSON, Jon Smith\.br\Date and Time Signed: 05/14/23 11:54 EDT Discharge Note-Nursingon Discharge Note-Nursing Invalid Interpretation Code [address] [place] [address]- \.br\ Wednesday 9:45 AM EDT \.br\ With: Nasim JOHNSON, Rajni Ballesteros\.br\ Where: [facility] Folateon 05-14-2023 Folate [Mass/Vol] 10.1 ng/mL Normal >=6.7 [facility] Comment on above: Performed By: #### 9 79521361, 18378227, 3506991, 7163007, 7051073918, 7860908, 5170665954, 6460208, 01089665 ####[facility] [address] [place] [address] HEMATOLOGYOrdered By: SYSTEM SYSTEM on 05-14-2023 Basophils/100 [...] previous path review on 05/13/23, reviewed by [id number] Inpatient Clinical Summaryon 05-14-2023 Inpatient Clinical Summary Normal [facility] Inpatient Patient Summaryon 05-14-2023 Inpatient Patient Summary Normal [facility] Interdisciplinary Note - Taz e Manageron 05-14-2023 Interdisciplinary Note - Sweatband Flanger Normal [facility] Comment on above: Result Comment: Elec tronically Signed By: Kera Diehl\.br\Date and Time Signed: 05/14/23 10:23 EDT IntraOperative Documentson 0 05-14-2023 IntraOperative Documents [id number] 905#1.00TIFF Normal [facility] Progress Note-Physicianon Progress Note-Physician Normal [facility] Comment on above: Result Comment: Elec tronically Signed By: Moncho Trejo DO\Date and Time Signed: 05/14/23 10:14 EDT Progress Note-Physician Normal [facility] Comment on above: Result Comment: Elec tronically Signed By: Kuldip Arcos Jr, DO\.rene\Date and Time Signed: 05/14/23 07:41 EDT Progress Note-Physician Normal [facility] Comment on above: Result Comment: Elec tronically Signed By: Isrrael Cummins DO, Kuldip Arzate\lucila\Date and Time Signed: 05/14/23 07:41 EDT Vit B12on 05-14-2023 Cobalamin (Vitamin B12) [Mass/Vol] 791 pg/mL Normal 50-1500 [facility] Comment on above: Performed By: #### 9 86308162, 34568515, 3794310, 2029559, 6922135985, 3308365, 5321344634, 5192256, 28728113 ####[facility] [address] [place] [address] eGFRon 05-14-2023 eGFR 86 mL/min/1.73 m2 Normal >=59 [facility] Comment on above: Order Comment: Order added by Discern Expert. Performed By: #### 9 71399162, 58294080, 1128784, 8031101, 6437699659, 7435637, 8713739744, 3307263, 91908149 ####[facility] [address] [place] [address] CBC w/ Auto Diffon 4 Basophils/100 WBC (Bld) 1.2 % Normal 0.0-2.0 [facility] Comment on above: Performed By: #### 2 756756, 5110224, 01686675, 74227202 ####[address] [place] [address] Basophils/Leukocyte s Auto (Bld) [Pure # fraction] 0.0 E9/L Normal 0.0-0.2 [facility] Comment on above: Performed By: #### 2 165947, 1615622, 88888146, 45090221 ####[facility] [address] [place] [address] Eosinophils (Bld) [#/Vol] 0.1 E9/L Normal 0.0-0.5 [facility] Comment on above: Performed By: #### 2 653314, 5033801, 47319269, 98428157 ####[facility] [address] [place] [address] Eosinophils/100 WBC (Bld) 4.7 % Normal 0.0-8.0 [facility] Comment on above: Performed By: #### 2 040561, 0223579, 31213478, 75414726 ####[address] [place] [address] Erythrocyte distribution width (RBC) [Ratio] 14.3 % High 10.9-14.2 [facility] Comment on above: Performed By: #### 2 655176, 6250604, 03871506, 69032945 ####[address] [address] Hematocrit (Bld) [Volume fraction] 37.1 % Normal 34.0-46.0 [facility] Comment on above: Performed By: #### 2 366512, 0974680, 31274116, 92371191 ####[address] [address] Hemoglobin (Bld) [Mass/Vol] 12.5 g/dL Normal 12.0-16.0 [facility] Comment on above: Performed By: #### 2 571841, 5255863, 32964684, 78549580 ####[address] [address] Lymphocytes (Bld) [#/Vol] 1.1 E9/L Normal 1.0-4.0 [facility] Comment on above: Performed By: #### 2 176901, 4782874, 80612478, 56772918 ####[address] [address] Lymphocytes/100 WBC (Bld) 53.2 % High 14.0-50.0 [facility] Comment on above: Performed By: #### 2 509921, 5748670, 66763465, 30866981 ####[address] [address] MCH (RBC) [Entitic mass] 30.1 pg Normal 27.0-34.0 [facility] Comment on above: Performed By: #### 2 449702, 8942129, 34958898, 91240615 ####[facility] [address] [place] [address] MCHC (RBC) [Mass/Vol] 33.6 g/dL Normal 31.4-36.0 [facility] Comment on above: Performed By: #### 2 727925, 0153676, 77533976, 35061477 ####[address] [place] [address] MCV (RBC) [Entitic vol] 89.4 fL Normal 80.0-100.0 [facility] Comment on above: Performed By: #### 2 359866, 5666764, 90790070, 48337571 ####[address] [address] Monocytes (Bld) [#/Vol] 0.1 E9/L Low 0.2-1.0 [facility] Comment on above: Performed By: #### 2 197372, 0455394, 60346202, 64406169 ####[address] [address] Neutrophils (Bld) [#/Vol] 0.7 E9/L Low 2.0-7.5 [facility] Comment on above: Performed By: #### 2 218935, 9040022, 02697569, 42197682 ####[address] [place] [address] Neutrophils/100 WBC (Bld) 34.6 % Low 36.0-75.0 [facility] Comment on above: Performed By: #### 2 427483, 8237256, 25901108, 40811730 ####[facility] [address] [place] [address] Platelet 168.0 E9/L Normal 150.0-500.0 [facility] Comment on above: Performed By: #### 2 439089, 2047841, 94018829, 80148975 ####[facility] [address] [place] [address] Platelet mean volume (Bld) [Entitic vol] 9.1 fL Normal 6.4-10.8 [facility] Comment on above: Performed By: #### 2 704580, 7459224, 78445548, 98600267 ####[facility] [address] [place] [address] RBC (Bld) [#/Vol] 4.1 E12/L Low 4.3-5.9 [facility] Comment on above: Performed By: #### 2 466452, 4152220, 36627503, 13837073 ####[facility] [address] [place] [address] WBC corrected for nucl RBC Auto (Bld) [#/Vol] 2.0 E9/L Abnormal 4.0-11.0 [facility] Comment on above: Result Comment: Resu lts called to JACKSON MARROQUIN by and read back on 05/13/2023 07:20:49.Critical Result Verified by Repeat AnalysisSlide review performed Performed By: #### 2 120114, 9794234, 96952029, 68574717 ####[facility] [address] [place] [address] CHEMISTRYOrdered By: SYSTEM SYSTEM on 05-13-2023 Albumin [...] 05-13-2023 Albumin [Mass/Vol] 3.9 g/dL Normal 3.3-5.0 [facility] Comment on above: Performed By: #### 2 823663, 0271276, 30782333, 44016029 ####[facility] [address] [place] [address] Albumin/Globulin (S) [Mass conc ratio] 1.6 Normal 1.1-2.2 [facility] Comment on above: Performed By: #### 2 244757, 3969999, 54030561, 63687397 ####[facility] [address] [place] [address] ALP [Catalytic activity/Vol] 49 Int._Unit/L Normal 21-98 [facility] Comment on above: Performed By: #### 2 147177, 7261989, 34630718, 34230382 ####[facility] [address] [place] [address] ALT No additional P-5'-P [Catalytic activity/Vol] 12 Int._Unit/L Normal 6-46 [facility] Comment on above: Performed By: #### 2 583102, 3228396, 07700403, 57468212 ####[facility] [address] [place] [address] Anion gap [Moles/Vol] 9 mmol/L Normal 6-16 [facility] Comment on above: Performed By: #### 2 117025, 9497764, 59975947, 14591515 ####[facility] [address] [place] [address] AST [Catalytic activity/Vol] 23 Int._Unit/L Normal 5-43 [facility] Comment on above: Performed By: #### 2 088525, 2055898, 37683527, 68597554 ####[facility] [address] [place] [address] Bilirubin [Mass/Vol] 0.4 mg/dL Normal 0.0-1.1 [facility] Comment on above: Performed By: #### 2 196495, 6565357, 67071933, 70825309 ####[facility] [address] [place] [address] Calcium [Mass/Vol] 8.4 mg/dL Low 8.9-11.1 [facility] Comment on above: Performed By: #### 2 762199, 9777684, 82768602, 34310383 ####[facility] [address] [place] [address] Chloride [Moles/Vol] 111 mmol/L Normal 101-111 [facility] Comment on above: Performed By: #### 2 202013, 5520740, 68723785, 22096499 ####[facility] [address] [place] [address] CO2 [Moles/Vol] 24 mmol/L Normal 21-31 [facility] Comment on above: Performed By: #### 2 218403, 1066470, 69557066, 54247864 ####[facility] [address] [place] [address] Creatinine [Mass/Vol] 0.7 mg/dL Normal 0.5-1.3 [facility] Comment on above: Performed By: #### 2 064650, 4040292, 46893296, 50474515 ####[facility] [address] [place] [address] Globulin (S) [Mass/Vol] 2.5 g/dL Normal 1.4-4.0 [facility] Comment on above: Performed By: #### 2 458014, 6902700, 47889991, 54168666 ####[facility] [address] [place] [address] Glucose [Mass/Vol] 84 mg/dL Normal 55-199 [facility] Comment on above: Performed By: #### 2 973993, 6169821, 69159378, 06377228 ####[facility] [address] [place] [address] Potassium [Moles/Vol] 3.7 mmol/L Normal 3.5-5.3 [facility] Comment on above: Performed By: #### 2 550925, 3316023, 99450856, 03618335 ####[facility] [address] [place] [address] Protein [Mass/Vol] 6.4 g/dL Normal 6.0-7.8 [facility] Comment on above: Performed By: #### 2 387131, 1431246, 40964632, 39720921 ####[facility] [address] [place] [address] Sodium [Moles/Vol] 140 mmol/L Normal 135-145 [facility] Comment on above: Performed By: #### 2 947030, 2213473, 77332728, 09374233 ####[facility] [address] [place] [address] Urea nitrogen [Mass/Vol] 7 mg/dL Normal 5-21 [facility] Comment on above: Performed By: #### 2 750689, 6455390, 42832272, 99094355 ####[facility] [address] [place] [address] Urea nitrogen/Creatinine [Mass ratio] 10 No Units Normal 10-20 [facility] Comment on above: Performed By: #### 2 739104, 3834912, 46584207, 33994340 ####[facility] [address] [place] [address] Consenton 05-13-2023 Consent [id number] 250#1.00TIFF Normal [facility] Consultation Noteon 05-13-19 24 Consultation Note Normal [facility] Comment on above: Result Comment: Elec tronically [...] by [place] and read back on 05/13/2023 07:20:49. Critical Result Verified by Repeat Analysis Slide review performed HEMATOLOGYOrdered By: Stephan Tavares on 05-13-2023 Path Review Anemia with no increase of reticulocytes. Leukocytopenia with reactive lymphocytes and monocytes.CPT 82335 Invalid Interpretation Code [facility] Interdisciplinary Note - Taz e Manageron 05-13-2023 Interdisciplinary Note - Sweatband Flanger Normal [facility] Comment on above: Result Comment: Elec tronically Signed By: Kera Diehl\.br\Date and Time Signed: 05/13/23 13:46 EDT Main OR Intraoperative Recor don 05-13-2023 Main OR Intraoperative Record Normal [facility] Oncology Progress Noteon Oncology Progress Note Normal [facility] Path. Reviewon 05-13-2023 Path Review Anemia with no increase of reticulocytes. Leukocytopenia with reactive lymphocytes and monocytes. Invalid Interpretation Code [facility] Comment on above: Order Comment: Order added by Discern Expert Performed By: #### 2 024076, 5510239, 59632824, 86710262 ####[facility] [address] [place] [address] Progress Note-Physicianon Progress Note-Physician Normal [facility] Comment on above: Result Comment: Elec tronically Signed By: Moncho Trejo DO\.br\Date and Time Signed: 05/13/23 10:43 EDT eGFRon 05-13-2023 eGFR 116 mL/min/1.73 m2 Normal >=59 [facility] Comment on above: Order Comment: Order added by Discern Expert. Performed By: #### 2 979910, 8114299, 57613398, 38479481 ####[facility] [address] [place] [address] B hCG Qualon 05-12-2023 Beta HCG ( test) Ql Negative Normal [facility] Comment on above: Performed By: #### 1 4364973, 0552259, 82678110, 4045207, 9331585, 07203434, 43997797, 8338845 ####[facility] [address] [place] [address] BMPOrdered By: SYSTEM SYSTEM on 05-12-2023 Anion gap [Moles/Vol] 11 mmol/L Normal 6-16 [facility] Comment on above: Performed By: #### 1 4313177, 9068250, 29651453, 0284246, 5107099, 87437919, 94777336, 5501009 ####[facility] [address] [place] [address] Calcium [Mass/Vol] 9.0 mg/dL Normal 8.9-11.1 [facility] Comment on above: Performed By: #### 1 1218377, 9735216, 17933995, 1425396, 7256682, 09878768, 70422533, 9106150 ####[facility] [address] [place] [address] Chloride [Moles/Vol] 105 mmol/L Normal 101-111 Remisol Chem Comment on above: Performed By: #### 1 [id number], [id number], [id number], 7765877, 2790480, 79380569, 39126071, 3500879 ####[facility] [address] [place] [address] CO2 [Moles/Vol] 25 mmol/L Normal 21-31 Remisol C hem Comment on above: Performed By: #### 1 [id number], [id number], 34340440, 9511970, 3016264, 82712136, [id number], 2854880 ####[facility] [address] [place] [address] Creatinine [Mass/Vol] 1.0 mg/dL Normal 0.5-1.3 Remisol Chem Comment on above: Performed By: #### 1 [id number], 9276190, 76792599, 6979168, 1961105, 20680732, 45047288, 8344210 ####[facility] [address] [place] [address] Glucose [Mass/Vol] 94 mg/dL Normal 55-199 [facility] Comment on above: Performed By: #### 1 6925377, 4160102, 04947392, 5296599, 3936786, 34440920, 17202729, 5249527 ####[place] [address] [place] [address] Potassium [Moles/Vol] 3.9 mmol/L Normal 3.5-5.3 [facility] Comment on above: Performed By: #### 1 0085714, 9347421, 07833493, 2020822, 2111281, 93638978, 76444066, 0682174 ####[address] [place] [address] Sodium [Moles/Vol] 137 mmol/L Normal 135-145 [facility] Comment on above: Performed By: #### 1 3098610, 0537630, 08996308, 4813520, 5789065, 68511634, 22415302, 3741071 ####[address] [address] Urea nitrogen [Mass/Vol] 10 mg/dL Normal 5-21 [facility] Comment on above: Performed By: #### 1 6679561, 7820310, 77783228, 5038800, 7829359, 58955880, 86975241, 5818869 ####[address] [address] BMPon 05-12-2023 Urea nitrogen/Creatinine [Mass ratio] 10 No Units Normal 10-20 [facility] Comment on above: Performed By: #### 1 4217803, 3399919, 89368601, 0961368, 7895034, 57792221, 40527907, 0817106 ####[address] [address] CBC w/ Auto DiffOrdered By: SYSTEM SYSTEM on 05-12-2023 Basophils/100 WBC (Bld) 0.9 % Normal 0.0-2.0 [facility] Comment on above: Performed By: #### 1 1335162, 0960622, 43189580, 3695001, 4498129, 41790104, 53649490, 6030581 ####[address] [address] Basophils/Leukocyte s Auto (Bld) [Pure # fraction] 0.0 E9/L Normal 0.0-0.2 [facility] Comment on above: Performed By: #### 1 9128543, 7308156, 98400365, 7888075, 3938847, 81177970, 33322882, 1208339 ####[address] [address] Eosinophils (Bld) [#/Vol] 0.1 E9/L Normal 0.0-0.5 [facility] Comment on above: Performed By: #### 1 5540905, 1420199, 99387676, 2251572, 4438653, 26900757, 50299483, 4006419 ####[address] [address] Eosinophils/100 WBC (Bld) 2.3 % Normal 0.0-8.0 [facility] Comment on above: Performed By: #### 1 6777072, 3527737, 67786099, 9772166, 1183376, 69614647, 56120836, 3398534 ####[place] [address] Erythrocyte distribution width (RBC) [Ratio] 14.3 % High 10.9-14.2 [facility] Comment on above: Performed By: #### 1 2108231, 9160500, 33473876, 5148425, 2383179, 47383998, 82534724, 3307002 ####[address] [address] Hematocrit (Bld) [Volume fraction] 39.8 % Normal 34.0-46.0 [facility] Comment on above: Performed By: #### 1 7309892, 9249656, 27521116, 8104673, 7623126, 59169074, 29300081, 5693162 ####[address] [address] Hemoglobin (Bld) [Mass/Vol] 13.5 g/dL Normal 12.0-16.0 [facility] Comment on above: Performed By: #### 1 5035669, 6667504, 83609261, 8747197, 6617681, 51842039, 54943355, 6527047 ####[place] [address] [address] Lymphocytes (Bld) [#/Vol] 1.3 E9/L Normal 1.0-4.0 [facility] Comment on above: Performed By: #### 1 2599149, 9611489, 52554168, 0669175, 2093830, 19914876, 17435861, 2769536 ####[place] [address] Lymphocytes/100 WBC (Bld) 46.0 % Normal 14.0-50.0 [facility] Comment on above: Performed By: #### 1 3250558, 2131647, 66437927, 0160204, 5261998, 65422105, 97006275, 6650405 ####[address] [address] MCH (RBC) [Entitic mass] 30.2 pg Normal 27.0-34.0 [facility] Comment on above: Performed By: #### 1 5112967, 6134682, 06754712, 0060433, 4785779, 10647172, 86051914, 4038000 ####[place] [address] MCHC (RBC) [Mass/Vol] 34.0 g/dL Normal 31.4-36.0 [facility] Comment on above: Performed By: #### 1 0908058, 8510207, 45474260, 8270955, 1373607, 12001638, 23358357, 7574905 ####[place] [address] [address] MCV (RBC) [Entitic vol] 88.8 fL Normal 80.0-100.0 [facility] Comment on above: Performed By: #### 1 6031652, 4314983, 85081671, 0044563, 2666590, 87264036, 18554443, 5558399 ####[address] [address] Monocytes (Bld) [#/Vol] 0.2 E9/L Normal 0.2-1.0 [facility] Comment on above: Performed By: #### 1 3856780, 9720306, 76218565, 7871416, 0090761, 70434565, 97484308, 5976061 ####[place] [address] [address] Neutrophils (Bld) [#/Vol] 1.2 E9/L Low 2.0-7.5 [facility] Comment on above: Performed By: #### 1 2910756, 6419566, 75041583, 0317402, 3019049, 93397557, 25015996, 2518615 ####[place] [address] [address] Neutrophils/100 WBC (Bld) 42.5 % Normal 36.0-75.0 [facility] Comment on above: Performed By: #### 1 3561282, 2224441, 14483976, 5442242, 9048994, 21898221, 84940029, 2399308 ####[place] [address] [address] Platelet mean volume (Bld) [Entitic vol] 9.0 fL Normal 6.4-10.8 [facility] Comment on above: Performed By: #### 1 3021352, 9536539, 41837374, 6364791, 6395566, 01717176, 01814972, 3286274 ####[place] [address] [address] Platelets (Bld) [#/Vol] 179.0 E9/L Normal 150.0-500.0 [facility] Comment on above: Performed By: #### 1 4378212, 9718576, 64148203, 9228801, 8266447, 53234895, 94119270, 3100768 ####[place] [address] [address] RBC (Bld) [#/Vol] 4.5 E12/L Normal 4.3-5.9 [facility] Comment on above: Performed By: #### 1 2173639, 8166829, 89685872, 7320513, 2350138, 92971398, 69171624, 0624810 ####[place] [facility] [address] [place] [address] WBC corrected for nucl RBC Auto (Bld) [#/Vol] 2.8 E9/L Low 4.0-11.0 [facility] Comment on above: Performed By: #### 1 7805633, 8681333, 93230390, 8339426, 6358763, 73091910, 38951102, 5775109 ####[place] [facility] [address] [place] [address] CHEMISTRYOrdered By: SYSTEM SYSTEM on 05-12-2023 Albumin/Globulin [...] 34.7 s Normal 25.1 - 36.5 second(s) [facility] Auto Coag Comment on above: Interpretive Data: [...] the same coagulation reagent and instrumentation as [facility]. Currently there are no coagulation studies available worldwide for children to 14 days, and no normal ranges. Heparin therapeutic range (represented by Anti-Factor Xa activity of 0.2 - 0.4 U/mL) corresponds to PTT of 56.6 - 109.0 sec. PT Coag (PPP) [Time] 13.1 s High 9.4 - 12.5 second(s) [facility] Auto Coag Comment on above: Interpretive Data: [...] the same coagulation reagent and instrumentation as [facility]. Currently there are no coagulation studies available worldwide for children to 14 days, and no normal ranges. Consent for Treatmenton 04-16 Consent for Treatment [id number] 68#1.00TIFF Normal [facility] Consultation Noteon 05-12-19 Consultation Note Normal [facility] Comment on above: Result Comment: Elec tronically Signed By: Miguel JOHNSON, Jon Smith\.br\Date and Time Signed: 05/12/23 15:42 EDT ED Clinical Summaryon 2023 ED Clinical Summary Normal [facility] ED Note-Physicianon 05-12-19 ED Note-Physician Normal [facility] Comment on above: Result Comment: Elec tronically Signed By: Mauricio López PA-C\.br\Date and Time Signed: 05/12/23 12:06 EDT\.br\Electronically Co-Signed By: Mateusz Garcia DO\.br\Date and Time Co-Signed: 05/12/23 12:48 EDT ED Patient Education Noteon 05-12-2023 ED Patient Education Note Normal [facility] ED Patient Summaryon 024 ED Patient Summary Normal [facility] Endoscopic Procedure Report - Otheron 05-12-2023 Endoscopic Procedure Report - Other Normal [facility] Comment on above: Result Comment: Elec tronically Signed By: Jon Rivera MD\.br\Date and Time Signed: 05/12/23 15:48 EDT Other Comment: Ramya ng Attachment - attachment storage system not supported [id number] Can be viewed in source systemMissing Attachment - attachment storage system not supported [id number] Can be viewed in source systemMisssolomon [facility] Attachment - attachment storage system not supported [id number] Can be viewed in source systemMisssolomon [facility] Attachment - attachment storage system not supported [id number] Can be viewed in source systemMisssolomon [facility] Attachment - attachment storage system not supported [id number] Can be viewed in source systemMissing Attachment - attachment storage system not supported [id number] Can be viewed in source systemMissing Attachment - attachment storage system not supported [id number] Can be viewed in source systemMissing Attachment - attachment storage system not supported [id number] Can be viewed in source systemMissing Attachment - attachment storage system not supported [id number] Can be viewed in source system HEMATOLOGYOrdered By: SYSTEM SYSTEM on 05-12-2023 Monocytes/100 WBC (Bld) 8.3 % Normal 4.0 - 14.0 % [facility] Hep Func PanelOrdered By: SY STEM SYSTEM on 05-12-2023 Albumin [Mass/Vol] 4.3 g/dL Normal 3.3-5.0 [facility] Comment on above: Performed By: #### 1 8552808, 3805079, 68094508, 7223489, 4856786, 32311305, 51568428, 4180001 ####[place] [address] [place] [address] Bilirubin [Mass/Vol] 0.4 mg/dL Normal 0.0-1.1 [facility] Comment on above: Performed By: #### 1 1262695, 0804710, 32256691, 1483521, 5276986, 78325347, 81586233, 4530834 ####[place] [address] [address] Bilirubin.direct [Mass/Vol] 0.1 mg/dL Normal 0.0-0.4 [facility] Comment on above: Performed By: #### 1 3721103, 4365413, 79820127, 8451034, 8596682, 96741931, 84043291, 0714971 ####[place] [address] [address] Bilirubin.indirect [Mass or moles/Vol] 0.3 mg/dL Normal 0.1-0.9 [facility] Comment on above: Performed By: #### 1 7679673, 6045440, 61333888, 6345853, 6109890, 92926412, 75673306, 3812556 ####[place] [address] [address] Globulin (S) [Mass/Vol] 2.3 g/dL Normal 1.4-4.0 [facility] Comment on above: Performed By: #### 1 3299817, 8533759, 14237530, 1653053, 7536074, 59286604, 27947166, 7947041 ####[place] [address] [address] Protein [Mass/Vol] 6.6 g/dL Normal 6.0-7.8 [facility] Comment on above: Performed By: #### 1 1028907, 3483784, 50105094, 7521608, 0739503, 57153082, 03479450, 0012838 ####[place] [address] [address] Hep Func Panelon 05-12-2023 Albumin/Globulin (S) [Mass conc ratio] 1.9 Normal 1.1-2.2 [facility] Comment on above: Performed By: #### 1 9883602, 9953981, 62146090, 6710009, 9991579, 30944781, 31438682, 2648327 ####[facility] [address] [place] [address] ALP [Catalytic activity/Vol] 58 Int._Unit/L Normal 21-98 [facility] Comment on above: Performed By: #### 1 0505250, 7518575, 51432862, 3443132, 4081952, 32909585, 98817371, 8854326 ####[facility] [address] [place] [address] ALT No additional P-5'-P [Catalytic activity/Vol] 14 Int._Unit/L Normal 6-46 [facility] Comment on above: Performed By: #### 1 2257157, 9586683, 72777630, 4385785, 4578555, 10134870, 82873151, 4220048 ####[facility] [address] [place] [address] AST [Catalytic activity/Vol] 26 Int._Unit/L Normal 5-43 [facility] Comment on above: Performed By: #### 1 3846476, 0899963, 50293970, 5377465, 9748552, 01419100, 01605617, 7045448 ####[facility] [address] [place] [address] Interdisciplinary Note - Taz e Manageron 05-12-2023 Interdisciplinary Note - Sweatband Flanger Normal [facility] Comment on above: Result Comment: Elec tronically Signed By: Kera Diehl\.br\Date and Time Signed: 05/12/23 15:40 EDT Lipase LevelOrdered By: SYST EM SYSTEM on 05-12-2023 Lipase [Catalytic activity/Vol] 35 U/L Normal 13-58 [facility] Comment on above: Performed By: #### 1 9779831, 4997312, 95972340, 9424090, 3078291, 52502599, 69694208, 2236550 ####[facility] [address] [place] [address] Main OR PACU I Recordon 04-16 Main OR PACU I Record Normal [facility] Main OR Preoperative Recordo n 05-12-2023 Main OR Preoperative Record Normal [facility] Monitor Recordon 05-12-2023 Monitor Record [id number] 467#1.00TIFF Normal [facility] Monitor Record [id number]#1.00TIFF Normal [facility] Monitor Record [id number]#1.00TIFF Normal [facility] PT & PTTon 05-12-2023 aPTT Coag (PPP) [Time] 34.7 second(s) Normal 25.1-36.5 [facility] Comment on above: Result Comment: Para meter [...] the same coagulation reagent and instrumentation as [facility]. Currently there are no coagulation studies available worldwide for children to 14 days, and no normal ranges. Heparin therapeutic range (represented by Anti-Factor Xa activity of 0.2 - 0.4 U/mL) corresponds to PTT of 56.6 - 109.0 sec. Performed By: #### 1 7520500, 8316375, 32665392, 5016099, 4624512, 54605725, 69966560, 7523653 ####[facility] [address] [place] [address] PT Coag (PPP) [Time] 13.1 second(s) High 9.4-12.5 [facility] Comment on above: Result Comment: 15 d [...] the same coagulation reagent and instrumentation as [facility]. Currently there are no coagulation studies available worldwide for children to 14 days, and no normal ranges. Performed By: #### 1 6580739, 2794456, 53699530, 1612855, 4610905, 89100290, 87746696, 0264258 ####[facility] [address] [place] [address] PT & PTTOrdered By: Shannon cutler on 05-12-2023 INR Coag (PPP) [Relative time] 1.17 {INR} Invalid Interpretation Code [facility] Auto Coag Comment on above: Interpretive Data: [...] 3.0 ? 4.5 Performed By: #### 1 4518280, 7741687, 04186184, 3464506, 0490191, 67164686, 43557787, 9997064 ####[facility] [place] [address] Provider Letteron 05-12-2023 Provider Letter Prabhakar [facility] SEROLOGYOrdered By: Shannon cutler on 05-12-2023 Beta HCG ( test) Ql Negative (05/12/23 10:00 AM) Normal [facility] Man Sero Troponin 0 Hr.on 05-12-2023 Troponin I.cardiac [Mass/Vol] ng/mL Low 10.10-27.10 [facility] Comment on above: Result Comment: The 95% CI (Confidence Interval) PPV (Positive Predictive Value) for myocardial infarction in females is 38 pg/mL, in males 51 pg/mL. The results should be used in conjunction with clinical conditions of myocardial infarction.(Access High Sensitivity Troponin I Instructions For Use, Alan sickweather, September 2017) Performed By: #### 1 5930413, 5428946, 89521936, 2714262, 6521314, 60469002, 71491877, 7200899 ####[facility] [address] [place] [address] eGFROrdered By: SYSTEM Produce Run on 05-12-2023 eGFR 76 mL/min/1.73 m2 Normal >=59 [facility] Comment on above: Order Comment: Order added by Discern Expert. Performed By: #### 1 7234537, 9956963, 64388719, 0280154, 2881482, 39271607, 73714303, 7375190 ####[facility] [address] [place] [address] CBC w/ Auto Diffon 4 Basophils/100 WBC (Bld) 0.7 % Normal 0.0-2.0 [facility] Comment on above: Performed By: #### 2 896186, 1795229, 79192164, 7778747, 6043271, 5741439 ####[facility] [address] [place] [address] Basophils/Leukocyte s Auto (Bld) [Pure # fraction] 0.0 E9/L Normal 0.0-0.2 [facility] Comment on above: Performed By: #### 2 288795, 0970557, 15234184, 2979285, 7481317, 6452463 ####[facility] [address] [place] [address] Eosinophils (Bld) [#/Vol] 0.0 E9/L Normal 0.0-0.5 [facility] Comment on above: Performed By: #### 2 418357, 2679862, 24889688, 5106234, 4004494, 5477308 ####[address] [address] Eosinophils/100 WBC (Bld) 1.5 % Normal 0.0-8.0 [facility] Comment on above: Performed By: #### 2 797568, 9977582, 29396095, 9994624, 4566081, 8032908 ####[address] [address] Erythrocyte distribution width (RBC) [Ratio] 14.6 % High 10.9-14.2 [facility] Comment on above: Performed By: #### 2 361788, 0344684, 48733590, 7851402, 1008942, 4573787 ####[address] [address] Hematocrit (Bld) [Volume fraction] 38.7 % Normal 34.0-46.0 [facility] Comment on above: Performed By: #### 2 905552, 1331854, 00380686, 1211107, 7110489, 8056730 ####[address] [address] Hemoglobin (Bld) [Mass/Vol] 13.2 g/dL Normal 12.0-16.0 [facility] Comment on above: Performed By: #### 2 353682, 2134888, 89949383, 4165877, 9551896, 1321097 ####[address] [address] Lymphocytes (Bld) [#/Vol] 1.3 E9/L Normal 1.0-4.0 [facility] Comment on above: Performed By: #### 2 999314, 6772369, 17040201, 5377111, 8151712, 9065139 ####[address] [address] Lymphocytes/100 WBC (Bld) 48.6 % Normal 14.0-50.0 [facility] Comment on above: Performed By: #### 2 963758, 4051385, 81577421, 8538158, 3799067, 0467137 ####[address] [address] MCH (RBC) [Entitic mass] 30.3 pg Normal 27.0-34.0 [facility] Comment on above: Performed By: #### 2 904012, 7878713, 47908310, 8788964, 6185407, 5159002 ####[address] [address] MCHC (RBC) [Mass/Vol] 34.2 g/dL Normal 31.4-36.0 [facility] Comment on above: Performed By: #### 2 605178, 4525464, 19400121, 0865803, 5838579, 5105468 ####[address] [address] MCV (RBC) [Entitic vol] 88.6 fL Normal 80.0-100.0 [facility] Comment on above: Performed By: #### 2 540302, 9551863, 88605548, 3519649, 9189605, 0118133 ####[address] [address] Monocytes (Bld) [#/Vol] 0.2 E9/L Normal 0.2-1.0 [facility] Comment on above: Performed By: #### 2 106560, 2308393, 90342894, 5423366, 6157390, 1884258 ####[address] [address] Neutrophils (Bld) [#/Vol] 1.1 E9/L Low 2.0-7.5 [facility] Comment on above: Performed By: #### 2 044352, 8164175, 56998104, 7363022, 4509089, 5747941 ####[address] [place] [address] Neutrophils/100 WBC (Bld) 40.2 % Normal 36.0-75.0 [facility] Comment on above: Performed By: #### 2 150514, 3233038, 77525064, 6655460, 5659889, 3684286 ####[address] [place] [address] Platelet mean volume (Bld) [Entitic vol] 9.2 fL Normal 6.4-10.8 [facility] Comment on above: Performed By: #### 2 589536, 6578912, 59337181, 7958221, 0224160, 6114603 ####[address] [address] Platelets (Bld) [#/Vol] 195.0 E9/L Normal 150.0-500.0 [facility] Comment on above: Performed By: #### 2 089716, 5544841, 67653304, 4596164, 9185780, 5745054 ####[address] [address] RBC (Bld) [#/Vol] 4.4 E12/L Normal 4.3-5.9 [facility] Comment on above: Performed By: #### 2 495645, 2553410, 43270430, 4079604, 0669567, 0692784 ####[address] [place] [address] WBC corrected for nucl RBC Auto (Bld) [#/Vol] 2.7 E9/L Low 4.0-11.0 [facility] Comment on above: Performed By: #### 2 780402, 4595552, 65525504, 8696644, 2780400, 5777520 ####[facility] [address] [place] [address] CHEMISTRYOrdered By: SYSTEM SYSTEM on 05-11-2023 Amphetamines [...] Alternate Method called to Maribel Ortega by [id number] Interpretive Data: N egative Cutoff: <300 ng/mL [...] 05-11-2023 Albumin [Mass/Vol] 4.6 g/dL Normal 3.3-5.0 [facility] Comment on above: Performed By: #### 2 543399, 0540554, 99185380, 8507343, 8373720, 5138143 ####[facility] [address] [place] [address] Albumin/Globulin (S) [Mass conc ratio] 1.8 Normal 1.1-2.2 [facility] Comment on above: Performed By: #### 2 181782, 1353474, 76388361, 3720704, 9545392, 4209785 ####[facility] [address] [place] [address] ALP [Catalytic activity/Vol] 60 Int._Unit/L Normal 21-98 [facility] Comment on above: Performed By: #### 2 187670, 8856587, 15678160, 3429738, 0532938, 1432933 ####[facility] [address] [place] [address] ALT No additional P-5'-P [Catalytic activity/Vol] 14 Int._Unit/L Normal 6-46 [facility] Comment on above: Performed By: #### 2 298043, 8942266, 74759823, 8582920, 7035985, 2833402 ####[facility] [address] [place] [address] Anion gap [Moles/Vol] 15 mmol/L Normal 6-16 [facility] Comment on above: Performed By: #### 2 200633, 1337801, 28612296, 8026359, 3529429, 3182134 ####[facility] [address] [place] [address] AST [Catalytic activity/Vol] 25 Int._Unit/L Normal 5-43 [facility] Comment on above: Performed By: #### 2 985195, 9396233, 87521623, 9922995, 6085820, 9666421 ####[facility] [address] [place] [address] Bilirubin [Mass/Vol] 0.5 mg/dL Normal 0.0-1.1 [facility] Comment on above: Performed By: #### 2 220070, 8417652, 22400270, 7444813, 5488728, 5373809 ####[facility] [address] [place] [address] Calcium [Mass/Vol] 9.4 mg/dL Normal 8.9-11.1 [facility] Comment on above: Performed By: #### 2 315583, 7496768, 26664688, 4837912, 9013332, 2385785 ####[facility] [address] [place] [address] Chloride [Moles/Vol] 104 mmol/L Normal 101-111 [facility] Comment on above: Performed By: #### 2 371666, 0189729, 96090989, 2402245, 6626805, 0349338 ####[facility] [address] [place] [address] CO2 [Moles/Vol] 23 mmol/L Normal 21-31 [facility] Comment on above: Performed By: #### 2 418195, 5036014, 68775477, 7855942, 8738301, 3084655 ####[facility] [address] [place] [address] Creatinine [Mass/Vol] 0.8 mg/dL Normal 0.5-1.3 [facility] Comment on above: Performed By: #### 2 596955, 3871822, 37916121, 5940040, 0057966, 0851652 ####[facility] [address] [place] [address] Globulin (S) [Mass/Vol] 2.5 g/dL Normal 1.4-4.0 [facility] Comment on above: Performed By: #### 2 930405, 4504085, 53868377, 1436295, 0808239, 5312054 ####[facility] [address] [place] [address] Glucose [Mass/Vol] 80 mg/dL Normal 55-199 [facility] Comment on above: Performed By: #### 2 139186, 1627664, 12765759, 9242122, 0986638, 0102129 ####[facility] [address] [place] [address] Potassium [Moles/Vol] 3.6 mmol/L Normal 3.5-5.3 [facility] Comment on above: Performed By: #### 2 955186, 3349736, 31664224, 3773736, 4957704, 9282877 ####[facility] [address] [place] [address] Protein [Mass/Vol] 7.1 g/dL Normal 6.0-7.8 [facility] Comment on above: Performed By: #### 2 527829, 5962890, 79523632, 7715590, 4017104, 9599656 ####[facility] [address] [place] [address] Sodium [Moles/Vol] 138 mmol/L Normal 135-145 [facility] Comment on above: Performed By: #### 2 000341, 1522266, 86970437, 5868843, 3386062, 9855078 ####[facility] [address] [place] [address] Urea nitrogen [Mass/Vol] 9 mg/dL Normal 5-21 [facility] Comment on above: Performed By: #### 2 735920, 8181215, 47985841, 6054217, 6523157, 3782276 ####[facility] [address] [place] [address] Urea nitrogen/Creatinine [Mass ratio] 11 No Units Normal 10-20 [facility] Comment on above: Performed By: #### 2 210672, 0418457, 83158236, 6246674, 3112861, 2631039 ####[facility] [address] [place] [address] CT Abdomen/Pelvis w/o Contra ston 05-11-2023 CT Abdomen/Pelvis w/o Contrast Normal [facility] Consent for Treatmenton 04-16 Consent for Treatment [id number] 37#1.00TIFF Normal [facility] Discharge Instructionson Discharge Instructions [id number] Normal [facility] ED Clinical Summaryon 2023 ED Clinical Summary Normal [facility] ED Note-Physicianon 05-11-19 ED Note-Physician Normal [facility] Comment on above: Result Comment: Elec tronically Signed By: Tiffani Cunningham PA-C\.br\Date and Time Signed: 05/11/23 17:06 EDT\.br\Electronically Co-Signed By: Mateusz Garcia DO\.br\Date and Time Co-Signed: 05/11/23 20:41 EDT ED Patient Education Noteon 05-11-2023 ED Patient Education Note Normal [facility] ED Patient Summaryon 024 ED Patient Summary Normal [facility] HEMATOLOGYOrdered By: SYSTEM SYSTEM on 05-11-2023 Basophils/100 [...] Lactic Acid Lvl 0.6 mmol/L Normal 0.5-2.2 [facility] Comment on above: Performed By: #### 2 [id number], [id number] ####[facility] [id number] [place] [address] Lipase Levelon 05-11-2023 Lipase [Catalytic activity/Vol] 34 U/L Normal 13-58 [facility] Comment on above: Performed By: #### 2 [id number], [id number], [id number] ####[facility] [id number] [place] [address] Magnesiumon 05-11-2023 Magnesium [Mass/Vol] 2.1 mg/dL Normal 1.3-2.4 [facility] Comment on above: Performed By: #### 2 617471, 9060702, 91886450, 7352833, 3756085, 7388020 ####[facility] [address] [place] [address] SEROLOGYOrdered By: Olga Meng on 05-11-2023 HCG.beta subunit (U) [Moles/Vol] Negative Normal [facility] Man Sero U BetaHcg Qualon 05-11-2023 HCG.beta subunit (U) [Moles/Vol] Negative Normal [facility] Comment on above: Performed By: #### 4 [id number], [id number] ####[facility] [address]wh[address] [place] [address] U Drug Screenon 05-11-2023 Amphetamines Screen method >1000 ng/mL Ql (U) Negative Normal NEGATIVE [facility] Comment on above: Result Comment: Nega tive Cutoff: <1000 ng/mL Performed By: #### 2 676853 ####[facility] [address] [place] [address] Barbiturates Screen Ql (U) Negative Normal NEGATIVE [facility] Comment on above: Result Comment: Nega tive Cutoff: <200 ng/mL Performed By: #### 2 787399 ####[facility] [address] [place] [address] Benzodiazepines Ql (U) Negative Normal NEGATIVE [facility] Comment on above: Result Comment: Nega tive Cutoff: <200 ng/mL Performed By: #### 2 808171 ####[facility] [address]wf[address] [place] [address] Cannabinoids Screen Ql (U) Positive Abnormal NEGATIVE [facility] Comment on above: Result Comment: No C onfirmation Requested by PhysicianResult Verified by Repeat AnalysisUnconfirmed by an Alternate Methodcalled to Maribel Ortega by at 1404Negative Cutoff: <50 ng/mL Performed By: #### 2 099672 ####[facility] [address]amu[address] [place] [address] Cocaine Ql (U) Negative Normal NEGATIVE [facility] Comment on above: Result Comment: Nega tive Cutoff: <300 ng/mL Performed By: #### 2 627089 ####[facility] [address] [place] [address] Opiates Screen Ql (U) Positive Abnormal NEGATIVE [facility] Comment on above: Result Comment: No C onfirmation Requested by PhysicianResult Verified by Repeat AnalysisUnconfirmed by an Alternate Methodcalled to Maribel Ortega by [id number] Cutoff: <300 ng/mL Performed By: #### 2 588555 ####[facility] [address] [place] [address] Phencyclidine Screen method >25 ng/mL Ql (U) Negative Normal NEGATIVE [facility] Comment on above: Result Comment: Nega tive Cutoff: <25 ng/mLThese drug screen results are to be used for medical (i.e., treatment) purposes only. Unconfirmed drug screening results must not be used for non-medical purposes (e.g., employment testing, legal testing). Performed By: #### 2 614114 ####[facility] [address] [place] [address] UA with Cult Rflxon 05-11-19 24 Color (U) Light-Yellow Normal Yellow [facility] Comment on above: Result Comment: Micr oscopic readings are only performed on those samples that meet specific criteria set forth by [facility]. Performed By: #### 4 [id number], [id number] ####[facility] [address]sw[address] [place] [address] Glucose (U) [Mass/Vol] Negative Normal Negative [facility] Comment on above: Performed By: #### 4 [id number], 13540613 ####[facility] [address] [facility] [place] [address] Ketones Ql (U) Negative Normal Negative [facility] Comment on above: Performed By: #### 4 [id number], [id number] ####[facility] [address] [facility] [address] UA Blood Negative Normal Negative [facility] Comment on above: Performed By: #### 4 [id number], [id number] ####[facility] [address] [facility] [place] [address] UA Clarity Clear Normal Clear [facility] Comment on above: Performed By: #### 4 [id number], 30970468 ####[facility] [address] [facility] [place] [address] UA Leuk Est Negative Normal Negative [facility] Comment on above: Performed By: #### 4 [id number], [id number] ####[facility] [address] [facility] [place] [address] UA Nitrite Negative Normal Negative [facility] Comment on above: Performed By: #### 4 [id number], [id number] ####[facility] [address] [facility] [place] [address] UA pH 7.5 Invalid Interpretation Code 5.0-9.0 [facility] Comment on above: Performed By: #### 4 [id number], [id number] ####[facility] [address] [place] [address] UA Protein Negative Normal Negative [facility] Comment on above: Performed By: #### 4 [id number], 49809346 ####[facility] [address] [facility] [place] [address] UA Spec Grav 1.010 Invalid Interpretation Code 1.005-1.030 [facility] Comment on above: Performed By: #### 4 [id number], [id number] ####[facility] [address]ys[address] [facility] [place] [address] UA Urobilinogen Negative Normal Negative [facility] Comment on above: Performed By: #### 4 [id number], 16360803 ####[facility] [address] [place] [address] Urobilinogen (U) [Mass/Vol] Negative Normal Negative [facility] Comment on above: Performed By: #### 4 [id number], 67062412 ####[facility] [address] [place] [address] UA Spec Desc Clean Catch Normal [facility] Comment on above: Performed By: #### 4 [id number], [id number] ####[facility] [address] [place] [address] URINALYSISOrdered By: SYSTEM SYSTEM on 05-11-2023 Color (U) Light-Yellow 3 (05/11/23 12:41 PM) Normal Yellow [facility] Comment on above: Interpretive Data: M icroscopic readings are only performed on those samples that meet specific criteria set forth by [facility]. Glucose (U) [Mass/Vol] Negative Normal Negativemg/dL [...] on 05-11-2023 UA Spec Desc Clean Catch (3/26/24 12:41 PM) Normal [facility] UA Auto SS eGFRon 05-11-2023 eGFR 99 mL/min/1.73 m2 Normal >=59 [facility] Comment on above: Order Comment: Order added by Discern Expert. Performed By: #### 2 745395, 3282095, 94498342, 4562518, 7822411, 5855249 ####[facility] [address] [place] [address] Ambulatory Visit Summaryon 0 05-10-2023 Ambulatory Visit Summary Normal [address] [place] [address] [place] [address]- \.br\ Medications\.br\ What How Much When Why [...] for choosing us for your care.\.br\ \.br\ [facility] CNPNon 05-10-2023 CNPN Normal [facility] Office/Clini c Noteon 05-10-2023 Family Medicine Office/Clinic Note Normal [facility] Comment on above: Result Comment: Elec tronically Signed By: Jaquan Paula\.br\Date and Time Signed: 05/10/23 14:35 EDT Home Health Recordson 2023 Home Health Records [id number] 80#1.00TIFF Normal [facility] Provider Letteron 05-10-2023 Provider Letter Normal [facility] B hCG Qualon 05-09-2023 Beta HCG ( test) Ql Negative [facility] Comment on above: Performed By: #### 1 6615359, 37802970, 1285998, 5084533, 7245459, 3745303 ####[facility] [address] [place] [address] BMPon 05-09-2023 Anion gap [Moles/Vol] 12 mmol/L Normal 6-16 [facility] Comment on above: Performed By: #### 1 8682363, 93484579, 1551362, 5843195, 0042603, 1537461 ####[facility] [address] [place] [address] Calcium [Mass/Vol] 8.6 mg/dL Low 8.9-11.1 [facility] Comment on above: Performed By: #### 1 2658428, 30395231, 3944941, 9973264, 5127322, 7739341 ####[facility] [address] [place] [address] Chloride [Moles/Vol] 109 mmol/L Normal 101-111 [facility] Comment on above: Performed By: #### 1 5772724, 49765310, 8670507, 2079915, 2004434, 6407406 ####[facility] [address] [place] [address] CO2 [Moles/Vol] 23 mmol/L Normal 21-31 [facility] Comment on above: Performed By: #### 1 6262793, 67467536, 0861267, 2499768, 0735980, 2961223 ####[facility] [address] [place] [address] Creatinine [Mass/Vol] 0.8 mg/dL Normal 0.5-1.3 [facility] Comment on above: Performed By: #### 1 1740353, 78376307, 5484251, 1006523, 7896394, 8114246 ####[address] [address] Glucose [Mass/Vol] 79 mg/dL Normal 55-199 [facility] Comment on above: Performed By: #### 1 0767853, 28811238, 8093386, 8061923, 5558920, 9175826 ####[facility] [address] [place] [address] Potassium [Moles/Vol] 3.9 mmol/L Normal 3.5-5.3 [facility] Comment on above: Performed By: #### 1 7959116, 12530199, 8460447, 4838039, 6668235, 4695591 ####[facility] [address] [place] [address] Sodium [Moles/Vol] 140 mmol/L Normal 135-145 [facility] Comment on above: Performed By: #### 1 8239970, 07180340, 6273649, 1965518, 5970250, 4083681 ####[facility] [address] [place] [address] Urea nitrogen [Mass/Vol] 9 mg/dL Normal 5-21 [facility] Comment on above: Performed By: #### 1 8759769, 44797719, 0362490, 7169903, 4499867, 1795513 ####[facility] [address] [place] [address] Urea nitrogen/Creatinine [Mass ratio] 11 No Units Normal 10-20 [facility] Comment on above: Performed By: #### 1 1311036, 17757677, 3213046, 0429074, 7002826, 1128773 ####[address] [address] CBC w/ Auto Diffon 4 Basophils/100 WBC (Bld) 1.1 % Normal 0.0-2.0 [facility] Comment on above: Performed By: #### 1 0180100, 96543500, 9890833, 2579796, 4067015, 3281621 ####[address] [address] Basophils/Leukocyte s Auto (Bld) [Pure # fraction] 0.0 E9/L Normal 0.0-0.2 [facility] Comment on above: Performed By: #### 1 4794244, 02783018, 8427282, 0454100, 4118437, 2459501 ####[address] [address] Eosinophils (Bld) [#/Vol] 0.1 E9/L Normal 0.0-0.5 [facility] Comment on above: Performed By: #### 1 7290111, 10497015, 5879943, 7722623, 1699795, 8305405 ####[address] [address] Eosinophils/100 WBC (Bld) 2.1 % Normal 0.0-8.0 [facility] Comment on above: Performed By: #### 1 4365506, 68962425, 4811346, 1792241, 0754295, 1053542 ####[address] [address] Erythrocyte distribution width (RBC) [Ratio] 14.4 % High 10.9-14.2 [facility] Comment on above: Performed By: #### 1 1200991, 01886766, 0964215, 0475214, 3256986, 8492642 ####[address] [place] [address] Hematocrit (Bld) [Volume fraction] 36.3 % Normal 34.0-46.0 [facility] Comment on above: Performed By: #### 1 2666398, 50706199, 1679669, 7349935, 4113397, 8533593 ####[address] [address] Hemoglobin (Bld) [Mass/Vol] 12.3 g/dL Normal 12.0-16.0 [facility] Comment on above: Performed By: #### 1 2847165, 67373494, 5836796, 6602397, 2649466, 3808277 ####[address] [address] Lymphocytes (Bld) [#/Vol] 1.2 E9/L Normal 1.0-4.0 [facility] Comment on above: Performed By: #### 1 7964084, 36715357, 0083555, 4783835, 3861206, 2590316 ####[address] [address] Lymphocytes/100 WBC (Bld) 42.2 % Normal 14.0-50.0 [facility] Comment on above: Performed By: #### 1 1131352, 27583909, 6560995, 9991582, 5103808, 9452016 ####[address] [address] MCH (RBC) [Entitic mass] 30.2 pg Normal 27.0-34.0 [facility] Comment on above: Performed By: #### 1 8763201, 81097691, 3657700, 4275297, 0267699, 2921242 ####[address] [address] MCHC (RBC) [Mass/Vol] 33.9 g/dL Normal 31.4-36.0 [facility] Comment on above: Performed By: #### 1 7145736, 76611435, 2301679, 7574818, 0276175, 1288589 ####[address] [place] [address] MCV (RBC) [Entitic vol] 89.2 fL Normal 80.0-100.0 [facility] Comment on above: Performed By: #### 1 2111020, 74249982, 0405158, 1415662, 0675352, 0495935 ####[address] [address] Monocytes (Bld) [#/Vol] 0.3 E9/L Normal 0.2-1.0 [facility] Comment on above: Performed By: #### 1 6954245, 70141390, 3121679, 1069408, 7690492, 1523643 ####[address] [address] Neutrophils (Bld) [#/Vol] 1.2 E9/L Low 2.0-7.5 [facility] Comment on above: Performed By: #### 1 1361920, 30664527, 2258007, 5840320, 2694224, 6091218 ####[address] [address] Neutrophils/100 WBC (Bld) 44.3 % Normal 36.0-75.0 [facility] Comment on above: Performed By: #### 1 6284188, 75446210, 4062638, 4942241, 7137680, 2432630 ####[address] [place] [address] Platelet 201.0 E9/L Normal 150.0-500.0 [facility] Comment on above: Performed By: #### 1 6805863, 76466501, 5046364, 1434572, 4432360, 4004594 ####[address] [address] Platelet mean volume (Bld) [Entitic vol] 9.8 fL Normal 6.4-10.8 [facility] Comment on above: Performed By: #### 1 1024402, 05666359, 6259451, 1308829, 2004868, 4205395 ####[facility] [address] [place] [address] RBC (Bld) [#/Vol] 4.1 E12/L Low 4.3-5.9 [facility] Comment on above: Performed By: #### 1 9362017, 58406988, 2723461, 5876392, 5181444, 3426301 ####[facility] [address] [place] [address] WBC corrected for nucl RBC Auto (Bld) [#/Vol] 2.8 E9/L Low 4.0-11.0 [facility] Comment on above: Performed By: #### 1 9024188, 95949587, 3871567, 2619810, 8770552, 0144602 ####[facility] [address] [place] [address] CHEMISTRYOrdered By: SYSTEM SYSTEM on 05-09-2023 Albumin [...] for Treatmenton 04-16 Consent for Treatment [id number] E0#1.00TIFF Normal [facility] Discharge Instructionson Discharge Instructions [id number] 14#1.00TIFF Normal [facility] ED Clinical Summaryon 2023 ED Clinical Summary Normal [facility] ED Note-Nursingon 05-09-2023 ED Note-Nursing Discharge materials given, wheeled patient out. Home with family care. Normal [facility] ED Note-Physicianon 05-09-19 ED Note-Physician Normal [facility] Comment on above: Result Comment: Elec tronically Signed By: Lonnie Rios PA-C\.br\Date and Time Signed: 05/09/23 15:52 EDT\.br\Electronically Co-Signed By: Mateusz Garcia DO\.br\Date and Time Co-Signed: 05/09/23 17:19 EDT ED Patient Education Noteon 05-09-2023 ED Patient Education Note Normal [facility] ED Patient Summaryon ED Patient Summary Normal [facility] HEMATOLOGYOrdered By: SYSTEM SYSTEM on 05-09-2023 Basophils/100 [...] 05-09-2023 Albumin [Mass/Vol] 4.3 g/dL Normal 3.3-5.0 [facility] Comment on above: Performed By: #### 1 2982707, 57464894, 3824152, 0206911, 5996926, 4978171 ####[facility] [address] [place] [address] Albumin/Globulin (S) [Mass conc ratio] 1.8 Normal 1.1-2.2 [facility] Comment on above: Performed By: #### 1 3796473, 43069773, 8728742, 1842533, 0363723, 3988504 ####[facility] [address] [place] [address] ALP [Catalytic activity/Vol] 51 Int._Unit/L Normal 21-98 [facility] Comment on above: Performed By: #### 1 5569646, 38576059, 6928293, 6360621, 4949664, 3254121 ####[facility] [address] [place] [address] ALT No additional P-5'-P [Catalytic activity/Vol] 15 Int._Unit/L Normal 6-46 [facility] Comment on above: Performed By: #### 1 8065792, 74164827, 5192448, 0796383, 5446723, 3695335 ####[address] [place] [address] AST [Catalytic activity/Vol] 26 Int._Unit/L Normal 5-43 [facility] Comment on above: Performed By: #### 1 8288791, 24317756, 3448338, 7917519, 6258793, 8879862 ####[address] [address] Bilirubin [Mass/Vol] 0.3 mg/dL Normal 0.0-1.1 [facility] Comment on above: Performed By: #### 1 4625833, 95694152, 2066155, 5357940, 6002488, 0684734 ####[address] [address] Bilirubin.direct [Mass/Vol] 0.1 mg/dL Normal 0.0-0.4 [facility] Comment on above: Performed By: #### 1 3419460, 48789859, 7005178, 7229197, 0997619, 7700721 ####[address] [address] Bilirubin.indirect [Mass or moles/Vol] 0.2 mg/dL Normal 0.1-0.9 [facility] Comment on above: Performed By: #### 1 6106381, 70311599, 4859775, 9813364, 1186147, 8065093 ####[address] [address] Globulin (S) [Mass/Vol] 2.4 g/dL Normal 1.4-4.0 [facility] Comment on above: Performed By: #### 1 4169888, 64676801, 8526828, 1298648, 5928048, 5244098 ####[address] [address] Protein [Mass/Vol] 6.7 g/dL Normal 6.0-7.8 [facility] Comment on above: Performed By: #### 1 7704361, 67443292, 9157172, 8076407, 7892933, 7256540 ####[facility] [address] [place] [address] Lipase Levelon 05-09-2023 Lipase [Catalytic activity/Vol] 68 U/L High 13-58 [facility] Comment on above: Performed By: #### 1 7601351, 01695472, 6679970, 5055124, 8704513, 8771730 ####[facility] [address] [place] [address] SEROLOGYOrdered By: Stacia Arroyo on 05-09-2023 Beta HCG ( test) Ql Negative (05/09/23 12:12 PM) Normal [facility] Man Sero eGFRon 05-09-2023 eGFR 99 mL/min/1.73 m2 Normal >=59 [facility] Comment on above: Order Comment: Order added by Discern Expert. Performed By: #### 1 0340368, 45905369, 9875125, 0154521, 2168457, 3463712 ####[facility] [address] [place] [address] CNPNon 05-07-2023 CNPN Normal [facility] ED Note-Physicianon 05-07-19 ED Note-Physician Normal [facility] Comment on above: Result Comment: Elec tronically Signed By: Justine German PA-C\.br\Date and Time Signed: 05/06/23 21:25 EDT\.br\Electronically Co-Signed By: Mateusz Garcia DO\.br\Date and Time Co-Signed: 05/07/23 07:00 EDT Amylaseon 05-06-2023 Amylase [Catalytic activity/Vol] 40 U/L Normal 25-157 [facility] Comment on above: Order Comment: pt wa s poked once, pt extremely dehydrated and would like to wait for IV start [id number] 05/06/2023 16:33:00 EDT Performed By: #### 2 918415, 2785257, 0986040, 7911670, 15008762, 1106359, 3274418 ####[facility] [address] [place] [address] BMPon 05-06-2023 Anion gap [Moles/Vol] 13 mmol/L Normal 6-16 [facility] Comment on above: Order Comment: pt lillian cruz poked once, pt extremely dehydrated and would like to wait for IV start [id number] 05/06/2023 16:33:00 EDT Performed By: #### 2 121474, 4204439, 2623253, 6516013, 04992921, 6101567, 2542357 ####[facility] [address] [place] [address] Calcium [Mass/Vol] 9.1 mg/dL Normal 8.9-11.1 [facility] Comment on above: Order Comment: pt lillian cruz poked once, pt extremely dehydrated and would like to wait for IV start [id number] 05/06/2023 16:33:00 EDT Performed By: #### 2 279881, 0050820, 2561991, 5583094, 77103607, 8704214, 1017487 ####[facility] [address] [place] [address] Chloride [Moles/Vol] 107 mmol/L Normal 101-111 [facility] Comment on above: Order Comment: pt lillian cruz poked once, pt extremely dehydrated and would like to wait for IV start [id number] 05/06/2023 16:33:00 EDT Performed By: #### 2 313989, 1458819, 3068711, 5467763, 11141272, 7676599, 4755778 ####[facility] [address] [place] [address] CO2 [Moles/Vol] 22 mmol/L Normal 21-31 [facility] Comment on above: Order Comment: pt lillian cruz poked once, pt extremely dehydrated and would like to wait for IV start [id number] 05/06/2023 16:33:00 EDT Performed By: #### 2 430979, 7847129, 5967933, 5488844, 03886462, 6595986, 4890160 ####[facility] [address] [place] [address] Creatinine [Mass/Vol] 0.8 mg/dL Normal 0.5-1.3 [facility] Comment on above: Order Comment: pt lillian cruz poked once, pt extremely dehydrated and would like to wait for IV start [id number] 05/06/2023 16:33:00 EDT Performed By: #### 2 047092, 1195517, 5898166, 8128301, 80305599, 3280747, 4467656 ####[facility] [address] [place] [address] Glucose [Mass/Vol] 80 mg/dL Normal 55-199 [facility] Comment on above: Order Comment: pt lillian cruz poked once, pt extremely dehydrated and would like to wait for IV start [id number] 05/06/2023 16:33:00 EDT Performed By: #### 2 711473, 2240905, 5757675, 8077257, 86203822, 8721264, 8625456 ####[facility] [address] [place] [address] Potassium [Moles/Vol] 3.7 mmol/L Normal 3.5-5.3 [facility] Comment on above: Order Comment: pt lillian cruz poked once, pt extremely dehydrated and would like to wait for IV start [id number] 05/06/2023 16:33:00 EDT Performed By: #### 2 797812, 9323764, 0875499, 0849615, 62033388, 4493481, 8432232 ####[facility] [address] [place] [address] Sodium [Moles/Vol] 138 mmol/L Normal 135-145 [facility] Comment on above: Order Comment: pt lillian cruz poked once, pt extremely dehydrated and would like to wait for IV start [id number] 05/06/2023 16:33:00 EDT Performed By: #### 2 803431, 0212457, 5991081, 6616279, 29665281, 9945149, 0613440 ####[facility] [address] [place] [address] Urea nitrogen [Mass/Vol] 10 mg/dL Normal 5-21 [facility] Comment on above: Order Comment: pt lillian cruz poked once, pt extremely dehydrated and would like to wait for IV start [id number] 05/06/2023 16:33:00 EDT Performed By: #### 2 692259, 0526187, 2502005, 5532561, 61346453, 5751113, 3726373 ####[facility] [address] [place] [address] Urea nitrogen/Creatinine [Mass ratio] 12 No Units Normal 10-20 [facility] Comment on above: Order Comment: pt lillian cruz poked once, pt extremely dehydrated and would like to wait for IV start [id number] 05/06/2023 16:33:00 EDT Performed By: #### 2 378410, 5086760, 3295090, 6517703, 24923903, 1140604, 7900779 ####[facility] [address] [place] [address] CBC w/ Auto Diffon 4 Basophils/100 WBC (Bld) 1.1 % Normal 0.0-2.0 [facility] Comment on above: Order Comment: pt lillian cruz poked once, pt extremely dehydrated and would like to wait for IV start [id number] 05/06/2023 16:33:00 EDT Performed By: #### 2 689316, 0872303, 3187846, 4382881, 33634194, 3509669, 9000365 ####[facility] [address] [place] [address] Basophils/Leukocyte s Auto (Bld) [Pure # fraction] 0.0 E9/L Normal 0.0-0.2 [facility] Comment on above: Order Comment: pt lillian cruz poked once, pt extremely dehydrated and would like to wait for IV start [id number] 05/06/2023 16:33:00 EDT Performed By: #### 2 958071, 9242068, 1523101, 4190271, 73339860, 2701253, 6603229 ####[facility] [address] [place] [address] Eosinophils (Bld) [#/Vol] 0.1 E9/L Normal 0.0-0.5 [facility] Comment on above: Order Comment: pt wa s poked once, pt extremely dehydrated and would like to wait for IV start [id number] 05/06/2023 16:33:00 EDT Performed By: #### 2 728726, 9111307, 8612153, 8744549, 33089617, 4318935, 6132160 ####[facility] [address] [place] [address] Eosinophils/100 WBC (Bld) 1.5 % Normal 0.0-8.0 [facility] Comment on above: Order Comment: pt wa s poked once, pt extremely dehydrated and would like to wait for IV start [id number] 05/06/2023 16:33:00 EDT Performed By: #### 2 245316, 6400457, 6641014, 4481080, 61152925, 4921141, 8583443 ####[facility] [address] [place] [address] Erythrocyte distribution width (RBC) [Ratio] 14.1 % Normal 10.9-14.2 [facility] Comment on above: Order Comment: pt wa s poked once, pt extremely dehydrated and would like to wait for IV start [id number] 05/06/2023 16:33:00 EDT Performed By: #### 2 461862, 6503259, 1682561, 7295674, 76772342, 7080514, 0155444 ####[facility] [address] [place] [address] Hematocrit (Bld) [Volume fraction] 37.9 % Normal 34.0-46.0 [facility] Comment on above: Order Comment: pt wa s poked once, pt extremely dehydrated and would like to wait for IV start [id number] 05/06/2023 16:33:00 EDT Performed By: #### 2 681607, 3822028, 8898308, 5713687, 20217495, 0857288, 2900309 ####[facility] [address] [place] [address] Hemoglobin (Bld) [Mass/Vol] 12.9 g/dL Normal 12.0-16.0 [facility] Comment on above: Order Comment: pt wa s poked once, pt extremely dehydrated and would like to wait for IV start [id number] 05/06/2023 16:33:00 EDT Performed By: #### 2 828609, 3260457, 6600236, 7879351, 54194508, 9453865, 1122310 ####[facility] [address] [place] [address] Lymphocytes (Bld) [#/Vol] 1.4 E9/L Normal 1.0-4.0 [facility] Comment on above: Order Comment: pt wa s poked once, pt extremely dehydrated and would like to wait for IV start [id number] 05/06/2023 16:33:00 EDT Performed By: #### 2 180975, 0495898, 3762054, 9070594, 68587301, 6880179, 7940034 ####[facility] [address] [place] [address] Lymphocytes/100 WBC (Bld) 33.8 % Normal 14.0-50.0 [facility] Comment on above: Order Comment: pt wa s poked once, pt extremely dehydrated and would like to wait for IV start [id number] 05/06/2023 16:33:00 EDT Performed By: #### 2 079558, 0187617, 0768054, 2383804, 37539508, 0421647, 8037629 ####[facility] [address] [place] [address] MCH (RBC) [Entitic mass] 30.3 pg Normal 27.0-34.0 [facility] Comment on above: Order Comment: pt wa s poked once, pt extremely dehydrated and would like to wait for IV start [id number] 05/06/2023 16:33:00 EDT Performed By: #### 2 900747, 0833172, 4941301, 3467484, 88000995, 5333165, 0223390 ####[facility] [address] [place] [address] MCHC (RBC) [Mass/Vol] 34.1 g/dL Normal 31.4-36.0 [facility] Comment on above: Order Comment: pt wa s poked once, pt extremely dehydrated and would like to wait for IV start [id number] 05/06/2023 16:33:00 EDT Performed By: #### 2 412753, 3304039, 7296785, 6943046, 15396435, 2820412, 6191106 ####[facility] [address] [place] [address] MCV (RBC) [Entitic vol] 88.8 fL Normal 80.0-100.0 [facility] Comment on above: Order Comment: pt wa s poked once, pt extremely dehydrated and would like to wait for IV start [id number] 05/06/2023 16:33:00 EDT Performed By: #### 2 943191, 6156545, 4181555, 7823504, 41847684, 1588958, 1451400 ####[facility] [address] [place] [address] Monocytes (Bld) [#/Vol] 0.3 E9/L Normal 0.2-1.0 [facility] Comment on above: Order Comment: pt wa s poked once, pt extremely dehydrated and would like to wait for IV start [id number] 05/06/2023 16:33:00 EDT Performed By: #### 2 635866, 1427511, 8121211, 0672509, 12711825, 8798962, 3786159 ####[facility] [address] [place] [address] Neutrophils (Bld) [#/Vol] 2.3 E9/L Normal 2.0-7.5 [facility] Comment on above: Order Comment: pt wa s poked once, pt extremely dehydrated and would like to wait for IV start [id number] 05/06/2023 16:33:00 EDT Performed By: #### 2 075043, 6065109, 9580830, 2441165, 15925592, 8730347, 3139046 ####[facility] [address] [place] [address] Neutrophils/100 WBC (Bld) 56.4 % Normal 36.0-75.0 [facility] Comment on above: Order Comment: pt lillian cruz poked once, pt extremely dehydrated and would like to wait for IV start [id number] 05/06/2023 16:33:00 EDT Performed By: #### 2 942357, 0424228, 2209416, 4796558, 77115878, 4739426, 7468727 ####[facility] [address] [place] [address] Platelet mean volume (Bld) [Entitic vol] 9.2 fL Normal 6.4-10.8 [facility] Comment on above: Order Comment: pt lillian cruz poked once, pt extremely dehydrated and would like to wait for IV start [id number] 05/06/2023 16:33:00 EDT Performed By: #### 2 001514, 5518919, 1098063, 7570783, 71923747, 3975301, 0762528 ####[facility] [address] [place] [address] Platelets (Bld) [#/Vol] 192.0 E9/L Normal 150.0-500.0 [facility] Comment on above: Order Comment: pt lillian cruz poked once, pt extremely dehydrated and would like to wait for IV start [id number] 05/06/2023 16:33:00 EDT Performed By: #### 2 981305, 4924521, 3227737, 6579280, 47219401, 0399448, 2987700 ####[facility] [address] [place] [address] RBC (Bld) [#/Vol] 4.3 E12/L Normal 4.3-5.9 [facility] Comment on above: Order Comment: pt wa s poked once, pt extremely dehydrated and would like to wait for IV start [id number] 05/06/2023 16:33:00 EDT Performed By: #### 2 312857, 2478823, 1560488, 2216043, 04047328, 1137250, 0443039 ####[facility] [address] [place] [address] WBC corrected for nucl RBC Auto (Bld) [#/Vol] 4.1 E9/L Normal 4.0-11.0 [facility] Comment on above: Order Comment: pt wa s poked once, pt extremely dehydrated and would like to wait for IV start [id number] 05/06/2023 16:33:00 EDT Performed By: #### 2 745345, 4961200, 1538979, 5232203, 40111233, 7720668, 2953098 ####[facility] [address] [place] [address] CHEMISTRYOrdered By: SYSTEM SYSTEM on 05-06-2023 Albumin [...] for Treatmenton 04-16 Consent for Treatment [id number] 11#1.00TIFF Normal [facility] Discharge Instructionson Discharge Instructions [id number] 616#1.00TIFF Normal [facility] ED Clinical Summaryon 2023 ED Clinical Summary Normal [facility] ED Patient Education Noteon 05-06-2023 ED Patient Education Note Normal [facility] ED Patient Summaryon 03-21-2 024 ED Patient Summary Normal [facility] HEMATOLOGYOrdered By: SYSTEM SYSTEM on 05-06-2023 Basophils/100 [...] 05-06-2023 Albumin [Mass/Vol] 4.6 g/dL Normal 3.3-5.0 [facility] Comment on above: Order Comment: pt wa s poked once, pt extremely dehydrated and would like to wait for IV start [id number] 05/06/2023 16:33:00 EDT Performed By: #### 2 073855, 3535090, 7264730, 2210873, 64178272, 5676957, 5906298 ####[facility] [address] [place] [address] Albumin/Globulin (S) [Mass conc ratio] 1.8 Normal 1.1-2.2 [facility] Comment on above: Order Comment: pt wa s poked once, pt extremely dehydrated and would like to wait for IV start [id number] 05/06/2023 16:33:00 EDT Performed By: #### 2 092266, 7969354, 2789267, 7870943, 31096612, 1053378, 2155283 ####[facility] [address] [place] [address] ALP [Catalytic activity/Vol] 56 Int._Unit/L Normal 21- [facility] Comment on above: Order Comment: pt wa s poked once, pt extremely dehydrated and would like to wait for IV start [id number] 05/06/2023 16:33:00 EDT Performed By: #### 2 698947, 1453941, 6512067, 9691683, 48040978, 0673533, 1996554 ####[facility] [address] [place] [address] ALT No additional P-5'-P [Catalytic activity/Vol] 14 Int._Unit/L Normal 6-46 [facility] Comment on above: Order Comment: pt wa s poked once, pt extremely dehydrated and would like to wait for IV start [id number] 05/06/2023 16:33:00 EDT Performed By: #### 2 921105, 4371651, 5432934, 2085955, 10642596, 7493326, 3113297 ####[facility] [address] [place] [address] AST [Catalytic activity/Vol] 25 Int._Unit/L Normal 5-43 [facility] Comment on above: Order Comment: pt wa s poked once, pt extremely dehydrated and would like to wait for IV start [id number] 05/06/2023 16:33:00 EDT Performed By: #### 2 545567, 7199452, 5249559, 2605388, 62584946, 6821364, 4515012 ####[facility] [address] [place] [address] Bilirubin [Mass/Vol] 0.5 mg/dL Normal 0.0-1.1 [facility] Comment on above: Order Comment: pt wa s poked once, pt extremely dehydrated and would like to wait for IV start [id number] 05/06/2023 16:33:00 EDT Performed By: #### 2 876921, 6051730, 0340619, 4442594, 30550867, 3024863, 0514669 ####[facility] [address] [place] [address] Bilirubin.direct [Mass/Vol] 0.1 mg/dL Normal 0.0-0.4 [facility] Comment on above: Order Comment: pt lillian s poked once, pt extremely dehydrated and would like to wait for IV start [id number] 05/06/2023 16:33:00 EDT Performed By: #### 2 333801, 3262188, 0840277, 1667733, 47436631, 0959224, 8339744 ####[facility] [address] [place] [address] Bilirubin.indirect [Mass or moles/Vol] 0.4 mg/dL Normal 0.1-0.9 [facility] Comment on above: Order Comment: pt lillian cruz poked once, pt extremely dehydrated and would like to wait for IV start [id number] 05/06/2023 16:33:00 EDT Performed By: #### 2 602168, 0212744, 3571456, 6988786, 44367029, 5899788, 7930771 ####[facility] [address] [place] [address] Globulin (S) [Mass/Vol] 2.5 g/dL Normal 1.4-4.0 [facility] Comment on above: Order Comment: pt lillian cruz poked once, pt extremely dehydrated and would like to wait for IV start [id number] 05/06/2023 16:33:00 EDT Performed By: #### 2 879674, 1140173, 6881828, 4162208, 02775634, 0483222, 9361907 ####[facility] [address] [place] [address] Protein [Mass/Vol] 7.1 g/dL Normal 6.0-7.8 [facility] Comment on above: Order Comment: pt lillian cruz poked once, pt extremely dehydrated and would like to wait for IV start [id number] 05/06/2023 16:33:00 EDT Performed By: #### 2 432783, 9690672, 2595630, 2275551, 72673733, 5981144, 1381250 ####[facility] [address] [place] [address] Lactic Acidon 05-06-2023 Lactic Acid Lvl 0.7 mmol/L Normal 0.5-2.2 [facility] Comment on above: Order Comment: pt lillian cruz poked once, pt extremely dehydrated and would like to wait for IV start [id number] 05/06/2023 16:33:00 EDT Performed By: #### 2 900788, 6069765, 9346431, 4232239, 76242887, 3553115, 9744651 ####[facility] [address] [place] [address] Lipase Levelon 05-06-2023 Lipase [Catalytic activity/Vol] 62 U/L High 13-58 [facility] Comment on above: Order Comment: pt wa s poked once, pt extremely dehydrated and would like to wait for IV start [id number] 05/06/2023 16:33:00 EDT Performed By: #### 2 091579, 1922730, 1372289, 1253828, 99799553, 1259460, 4992795 ####[facility] [address] [place] [address] Monitor Recordon 05-06-2023 Monitor Record [id number] 932#1.00TIFF Normal [facility] Monitor Record [id number] 260#1.00TIFF Normal [facility] Monitor Record [id number] 669#1.00TIFF Normal [facility] Monitor Record [id number] 349#1.00TIFF Normal [facility] eGFRon 05-06-2023 eGFR 99 mL/min/1.73 m2 Normal >=59 [facility] Comment on above: Order Comment: Order added by Discern Expert. Performed By: #### 2 776050, 4159049, 3231792, 5048870, 34863039, 1996578, 5005460 ####[facility] [address] [place] [address] ED Note-Physicianon 04-07-19 24 ED Note-Physician [id number] 6D#1.00TIFF Normal [facility] Alanine aminotransferase [En zymatic activity/volume] in Serum or PlasmaOrdered By: Trace Lowery on 04-06-2023 ALT [Catalytic activity/Vol] 21 U/L Normal 7-52 [facility] Comment on above: Performed By: #### A BRITTANIE RAYCG, CUU #### [facility] [address] Albumin [Mass/volume] in Ser um or Plasma by Bromocresol green (BCG) dye binding methoOrdered By: Trace Bullimore on 04-06-2023 Albumin BCG dye [Mass/Vol] 4.5 g/dL 3.5-5.7 [facility] Alkaline phosphatase [Enzyma tic activity/volume] in Serum or PlasmaOrdered By: Trace Bullimore on 04-06-2023 ALP [Catalytic activity/Vol] 48 U/L Normal 34-104 [facility] Comment on above: Performed By: #### A CORY [facility] [place] #### [address] Amylase [Enzymatic activity/ volume] in Serum or PlasmaOrdered By: Trace Bullimore on 04-06-2023 Amylase [Catalytic activity/Vol] 48 U/L Normal 29-103 [facility] Comment on above: Performed By: #### [facility] #### [address] Aspartate aminotransferase [ Enzymatic activity/volume] in Serum or PlasmaOrdered By: Trace Bullimore on 04-06-2023 AST [Catalytic activity/Vol] 28 U/L Normal 13-39 [facility] Comment on above: Performed By: #### [facility] #### [address] Automated basophil %Ordered By: Trace Bullimore on 04-06-2023 Basophils/100 WBC (Bld) 1.0 % Normal . [facility] Comment on above: Performed By: #### L IPASE, HEPATIC, RAEGAN, CBC, BMP #### [address] Automated basophil countOrde red By: Trace Bullimore on 04-06-2023 Basophils (Bld) [#/Vol] 0.0 10*3/uL Normal 0.0-0.2 [facility] Comment on above: Result Comment: PERF ORMED BY: [place] [address] PATHOLOGIST [employer] BAUTISTA BAKER M.D. Performed By: #### L IPASE, HEPATIC, RAEGAN, CBC, BMP #### [address] Automated blood monocyte cou ntOrdered By: Trace Bullimore on 04-06-2023 Monocytes (Bld) [#/Vol] 0.3 10*3/uL Normal 0.0-0.8 [facility] Comment on above: Performed By: #### L IPASE, HEPATIC, RAEGAN, CBC, BMP #### [address] Automated eosinophil %Ordere d By: Trace Bullimore on 04-06-2023 Eosinophils/100 WBC (Bld) 3.1 % Normal . [facility] Comment on above: Performed By: #### L IPASE, HEPATIC, RAEGAN, CBC, BMP #### [address] Automated eosinophil countOr dered By: Trace Bullimore on 04-06-2023 Eosinophils (Bld) [#/Vol] 0.1 10*3/uL Normal 0.0-0.45 [facility] Comment on above: Performed By: #### L IPASE, HEPATIC, RAEGAN, CBC, BMP #### [address] Automated erythrocytes count in urine sediment (number/area)Ordered By: Trace Bullimore on 04-06-2023 RBC Auto (Urine sed) [#/Area] 1-2 [HPF] 0-4 [facility] Automated leukocytes count i n urine sediment (number/area)Ordered By: Trace Bullimore on 04-06-2023 WBC Auto (Urine sed) [#/Area] 3-4 [HPF] 0-4 [facility] Automated monocyte %Ordered By: Trace Bullimore on 04-06-2023 Monocytes/100 WBC (Bld) 6.7 % Normal . [facility] Comment on above: Performed By: #### L IPASE, HEPATIC, RAEGAN, CBC, BMP #### [facility] [address] Automated neutrophil %Ordere d By: Trace Lowery on 04-06-2023 Neutrophils/100 WBC (Bld) 51.6 % Normal . [facility] Comment on above: Performed By: #### L IPASE, HEPATIC, RAEGAN, CBC, BMP #### [facility] [address] Automated urine color determ inationOrdered By: Trace Lowery on 04-06-2023 Color (U) Yellow Normal Yellow [facility] Comment on above: Order Comment: Name Collection Type:: Clean-Voided Midstream Performed By: #### H EPATIC, MG, LIPASE, CMP, CBC #### [address] Basic Metabolic Panelon 03-19 Creatinine Clr Calc Pharmacy 98.98 Normal [facility] Comment on above: Performed By: #### A DDONUAPLUS, UHCG, CUU #### [address] GFR/1.73 sq M.predicted MDRD (S/P/Bld) [Vol rate/Area] mL/min/{1.73_m2} Normal [facility] Comment on above: Performed By: #### A DDONUAPLUS, UHCG, CUU #### [address] Bilirubin Test strip Ql (U)O rdered By: Trace Lowery on 04-06-2023 Bilirubin Ql (U) Negative Negative [facility] Bilirubin.direct [Mass/volum e] in Serum or PlasmaOrdered By: Trace Dericimore on 04-06-2023 Bilirubin.direct [Mass/Vol] 0.10 mg/dL 0.03-0.18 [facility] Bilirubin.total [Mass/volume ] in Serum or PlasmaOrdered By: Trace Bullimore on 04-06-2023 Bilirubin [Mass/Vol] 0.4 mg/dL Normal 0.3-1.0 [facility] Comment on above: Performed By: #### A CORY, JOSESITO, JERONIMOU #### [facility] [address] [place] [id number] [facility] CT abdomen pelvis w conon CT abdomen pelvis w con [facility] [address] [place] [address] [place] [address] CT Scan Report Signed Patient: Abbey Garcia MR#: [id number] : 1990 Acct:[id number] Age/Sex: 33 / F ADM Date: 04/06/23 Loc: ER Room: Type: [facility] ER Attending Dr: Copies to: AGA [...] Maricruz Hutchinson M.D.04/06/2023 1:50 PM Dictation Location: [place] [address] Transcribed By: [facility] 04/06/23 1350 Dictated By: Maricruz Hutchinson MD 04/06/23 1341 Signed By: 04/06/23 1350 Normal [facility] Physician [facility] Calcium [Mass/volume] in Ser um or PlasmaOrdered By: Trace Lowery on 04-06-2023 Calcium [Mass/Vol] 9.1 mg/dL Normal 8.6-10.3 [facility] Comment on above: Performed By: #### A CORY ELIS, CUU #### [facility] [address] Carbon dioxide, total [Moles /volume] in Serum or PlasmaOrdered By: Trace Lowery on 04-06-2023 CO2 [Moles/Vol] 23.3 mmol/L Normal 21.0-31.0 [facility] Comment on above: Performed By: #### A JOSESITO RAY, CUU #### [facility] [address] [place] [address] [place] Chloride [Moles/volume] in S elder or PlasmaOrdered By: Trace Lowery on 04-06-2023 Chloride [Moles/Vol] 109 mmol/L High 98-107 [facility] Comment on above: Performed By: #### A JOSESITO RYA, CUU #### [facility] [address] Complete Blood Count Auto Di ffon 04-06-2023 Mean Corpuscular HGB Conc 34.2 g/dL Normal 32.0-35.0 [facility] Comment on above: Performed By: #### L IPASE, HEPATIC, RAEGAN, CBC, BMP #### [facility] [address] [place] [address] [place] Monocytes/100 WBC (Bld) 15.98 % Normal 0.00-20.00 [facility] Comment on above: Performed By: #### L IPASE, HEPATIC, RAEGAN, CBC, BMP #### [facility] [address] NRBC% 0.1 /100{WBC} Normal 0-0.5 [facility] Comment on above: Performed By: #### L IPASE, HEPATIC, RAEGAN, CBC, BMP #### [address] Creatinine [Mass/volume] in Serum or PlasmaOrdered By: Trace Lowery on 04-06-2023 Creatinine [Mass/Vol] 0.86 mg/dL Normal 0.60-1.20 [facility] Comment on above: Performed By: #### A DDONUAPLUS, UHCG, CUU #### [address] Dipstick and Microscopicon 0 04-06-2023 Appearance (U) Cloudy Critically abnormal Clear [facility] Comment on above: Order Comment: Name Collection Type:: Clean-Voided Midstream Performed By: #### H EPATIC, MG, LIPASE, CMP, CBC #### [address] Bacteria,Urine None Seen Normal None Seen [facility] Comment on above: Order Comment: Name Collection Type:: Clean-Voided Midstream Performed By: #### H EPATIC, MG, LIPASE, CMP, CBC #### [address] Bilirubin,Urine Negative Normal Negative [facility] Comment on above: Order Comment: Name Collection Type:: Clean-Voided Midstream Performed By: #### H EPATIC, MG, LIPASE, CMP, CBC #### [address] Glucose Ql (U) Normal Normal Normal [facility] Comment on above: Order Comment: Name Collection Type:: Clean-Voided Midstream Performed By: #### H EPATIC, MG, LIPASE, CMP, CBC #### [address] Hyaline Casts,Urine 0-8 Normal 0-8 [facility] Comment on above: Order Comment: Name Collection Type:: Clean-Voided Midstream Result Comment: PERF ORMED BY: [place] [address] PATHOLOGIST F[employer]IC FINISHER BAUTISTA BAKER M.D. Performed By: #### H EPATIC, MG, LIPASE, CMP, CBC #### [address] Ketones Ql (U) Trace High Negative [facility] Comment on above: Order Comment: Name Collection Type:: Clean-Voided Midstream Performed By: #### H EPATIC, MG, LIPASE, CMP, CBC #### [address] Leukocyte esterase Test strip Ql (U) Negative Normal Negative [facility] Comment on above: Order Comment: Name Collection Type:: Clean-Voided Midstream Performed By: #### H EPATIC, MG, LIPASE, CMP, CBC #### [address] Nitrite,Urine Negative Normal Negative [facility] Comment on above: Order Comment: Name Collection Type:: Clean-Voided Midstream Performed By: #### H EPATIC, MG, LIPASE, CMP, CBC #### [address] Occult Blood,Urine Negative Normal Negative [facility] Comment on above: Order Comment: Name Collection Type:: Clean-Voided Midstream Result Comment: PERF ORMED BY: [place] [address] PATHOLOGIST F[employer]IC FINISHER BAUTISTA BAKER M.D. Performed By: #### H EPATIC, MG, LIPASE, CMP, CBC #### [address] Protein,Urine Negative Normal Negative [facility] Comment on above: Order Comment: Name Collection Type:: Clean-Voided Midstream Performed By: #### H EPATIC, MG, LIPASE, CMP, CBC #### [address] RBC,Urine 1-2 Normal 0-4 [facility] Comment on above: Order Comment: Name Collection Type:: Clean-Voided Midstream Performed By: #### H EPATIC, MG, LIPASE, CMP, CBC #### [address] Specificy [place],Urine 1.026 Normal 1.001-1.030 [facility] Comment on above: Order Comment: Name Collection Type:: Clean-Voided Midstream Performed By: #### H EPATIC, MG, LIPASE, CMP, CBC #### [address] Squamous Epithelial Cell,Urine 3-4 High 0-2 [facility] Comment on above: Order Comment: Name Collection Type:: Clean-Voided Midstream Performed By: #### H EPATIC, MG, LIPASE, CMP, CBC #### [address] Urobilinogen,Urine Normal Normal Normal [facility] Comment on above: Order Comment: Name Collection Type:: Clean-Voided Midstream Performed By: #### H EPATIC, MG, LIPASE, CMP, CBC #### [address] WBC,Urine 3-4 Normal 0-4 [facility] Comment on above: Order Comment: Name Collection Type:: Clean-Voided Midstream Performed By: #### H EPATIC, MG, LIPASE, CMP, CBC #### [address] Erythrocyte distribution wid th [Ratio] by Automated countOrdered By: Trace Lowery on 04-06-2023 Erythrocyte distribution width (RBC) [Ratio] 13.9 % Normal 11.9-15.3 [facility] Comment on above: Performed By: #### L IPASE, HEPATIC, RAEGAN, CBC, BMP #### [facility] [address] Erythrocytes [#/volume] in B lood by Automated countOrdered By: Trace Lowery on 04-06-2023 RBC (Bld) [#/Vol] 4.17 10*6/uL Normal 3.60-5.00 [facility] Comment on above: Performed By: #### L IPASE, HEPATIC, RAEGAN, CBC, BMP #### [facility] [address] [place] [address] [place] Glucose [Mass/volume] in Ser um or PlasmaOrdered By: Trace Lowery on 04-06-2023 Glucose [Mass/Vol] 77 mg/dL Normal 70-100 [facility] Comment on above: ADA recommended refe rence rangeRandom Glucose Reference Range is dependent on time and content of last meal. Glucose of more than 200 mg/dL in a nonstressed, ambulatory subject supports the diagnosis of Diabetes Mellitus. Result Comment: [place] om Glucose Reference Range is dependent on time and content of last meal. Glucose of more than 200 mg/dL in a nonstressed, ambulatory subject supports the diagnosis of Diabetes Mellitus. ADA recommended reference range Performed By: #### A DDONUAPLUS, UHCG, CUU #### [facility] [address] HCG ( test) IA.rapi d Ql (U)Ordered By: Trace Lowery on 04-06-2023 HCG ( test) Ql (U) Negative [facility] HCG,Urineon 04-06-2023 Beta HCG ( test) Ql (U) Negative Normal [facility] Comment on above: Result Comment: PERF ORMED BY: [place] [address] PATHOLOGIST F[employer] FINISHER BAUTISTA BAKER M.D. Performed By: #### A DDONUAPLUS, UHCG, CUU #### [facility] [address] Hematocrit [Volume Fraction] of Blood by Automated countOrdered By: Trace Lowery on 04-06-2023 Hematocrit (Bld) [Volume fraction] 37.4 % Normal 34.0-46.4 [facility] Comment on above: Performed By: #### L IPASE, HEPATIC, RAEGAN, CBC, BMP #### [facility] [address] Hemoglobin [Mass/volume] in BloodOrdered By: Trace Lowery on 04-06-2023 Hemoglobin (Bld) [Mass/Vol] 12.8 g/dL Normal 11.8-15.4 [facility] Comment on above: Performed By: #### L IPASE, HEPATIC, RAEGAN, CBC, BMP #### [facility] [address] Hepatic Panelon 04-06-2023 Albumin [Mass/Vol] 4.5 g/dL Normal 3.5-5.7 [facility] Comment on above: Performed By: #### A DDONUAJESSICA, CG, CUU #### [address] Bilirubin,Indirect 0.3 mg/dL Normal [facility] Comment on above: Performed By: #### A DDONUAJESSICA, UHCG, CUU #### [address] Bilirubin.indirect [Mass/Vol] 0.10 mg/dL Normal 0.03-0.18 [facility] Comment on above: Performed By: #### A DDONUAJESSICA, UHCG, CUU #### [address] Ketones Auto test strip (U) [Mass/Vol]Ordered By: Trace Lowery on 04-06-2023 Ketones (U) [Mass/Vol] Trace Negative [facility] Laboratory - UrinalysisOrder ed By: Trace Lowery on 04-06-2023 Hyaline casts LM Ql (Urine sed) 0-8 [LPF] 0-8 [facility] Leukocytes [#/volume] correc darvin for nucleated erythrocytes in Blood by Automated counOrdered By: Trace Lowery on 04-06-2023 WBC corrected for nucl RBC Auto (Bld) [#/Vol] 3.8 10*3/uL 3.8-11.6 [facility] Leukocytes [#/volume] in Blo od by Automated countOrdered By: Trace Solimanore on 04-06-2023 WBC (Bld) [#/Vol] 3.8 10*3/uL Normal 3.8-11.6 [facility] Comment on above: Performed By: #### L IPASE, HEPATIC, RAEGAN, CBC, BMP #### [facility] [address] Lipase [Enzymatic activity/v olume] in Serum or PlasmaOrdered By: Trace Lowery on 04-06-2023 Lipase [Catalytic activity/Vol] 86.0 U/L High 11.0-82.0 [facility] Comment on above: Result Comment: PERF ORMED BY: [place] [address] PATHOLOGIST [employer] BAUTISTA BAKER M.D. Performed By: #### A DDONUAPLUS, CG, CUU #### [facility] [address] [place] [address] [place] Lymphocytes [#/volume] in Bl ood by Automated countOrdered By: Trace Lowery on 04-06-2023 Lymphocytes (Bld) [#/Vol] 1.4 10*3/uL Normal 1.00-4.8 [facility] Comment on above: Performed By: #### L IPASE, HEPATIC, RAEGAN, CBC, BMP #### [facility] [address] [place] [address] [place] Lymphocytes/100 leukocytes i n Blood by Automated countOrdered By: Tracetamiko Lowery on 04-06-2023 Lymphocytes/100 WBC (Bld) 37.6 % Normal . [facility] Comment on above: Performed By: #### L IPASE, HEPATIC, RAEGAN, CBC, BMP #### [facility] [address] [place] [address] [place] MCH [Entitic mass] by Automa darvin countOrdered By: Trace Lowery on 04-06-2023 MCH (RBC) [Entitic mass] 30.6 pg Normal 24.7-34.3 [facility] Comment on above: Performed By: #### L IPASE, HEPATIC, RAEGAN, CBC, BMP #### [facility] [address] MCHC Auto (RBC) [Mass/Vol]Or dered By: Trace Leosimore on 04-06-2023 MCHC (RBC) [Mass/Vol] 34.2 g/dL 32.0-35.0 [facility] MCV [Entitic volume] by Auto mated countOrdered By: Trace Lowery on 04-06-2023 MCV (RBC) [Entitic vol] 89.7 fL Normal 80-100 [facility] Comment on above: Performed By: #### L IPASE, HEPATIC, RAEGAN, CBC, BMP #### [facility] [address] Monocyte distribution width [Entitic volume] in Blood by AutomatedOrdered By: Trace Lowery on 04-06-2023 Monocyte distribution width Auto (Bld) [Entitic vol] 15.98 % 0.00-20.00 [facility] Neutrophils [#/volume] in Bl ood by Automated countOrdered By: Trace Lowery on 04-06-2023 Neutrophils (Bld) [#/Vol] 2.0 10*3/uL Normal 1.8-7.7 [facility] Comment on above: Performed By: #### L IPASE, HEPATIC, RAEGAN, CBC, BMP #### [facility] [address] Nitrite Test strip Ql (U)Ord ered By: Trace Lowery on 04-06-2023 Nitrite Ql (U) Negative Negative [facility] No Panel InformationOrdered By: Trace Lowery on 04-06-2023 Estimated GFR (CKD-EPI) > 60.0 mL/Min [facility] Creatinine Clearance (Chem 98.98 [facility] Nucleated erythrocytes [Pres ence] in Blood by Automated countOrdered By: Trace Lowery on 04-06-2023 Nucleated RBC Auto Ql (Bld) 0.1 /100{WBC} 0-0.5 [facility] Platelet mean volume [Entiti c volume] in Blood by Automated countOrdered By: Trace Solimanore on 04-06-2023 Platelet mean volume (Bld) [Entitic vol] 9.7 fL Normal 6.3-10.7 [facility] Comment on above: Performed By: #### L IPASE, HEPATIC, RAEGAN, CBC, BMP #### [facility] [address] Platelets [#/volume] in Bloo d by Automated countOrdered By: Trace Solimanore on 04-06-2023 Platelets (Bld) [#/Vol] 210 10*3/uL Normal 150-450 [facility] Comment on above: Performed By: #### L IPASE, HEPATIC, RAEGAN, CBC, BMP #### [address] Potassium [Moles/volume] in Serum or PlasmaOrdered By: Trace Solimanore on 04-06-2023 Potassium [Moles/Vol] 3.7 mmol/L Normal 3.5-5.1 [facility] Comment on above: Performed By: #### A CORY ELIS, CUU #### [address] Protein Auto test strip (U) [Mass/Vol]Ordered By: Trace Lowery on 04-06-2023 Protein (U) [Mass/Vol] Negative Negative [facility] Protein [Mass/volume] in Ser um or PlasmaOrdered By: Trace Lowery on 04-06-2023 Protein [Mass/Vol] 7.1 g/dL Normal 6.4-8.9 [facility] Comment on above: Performed By: #### A CORY, ElroyG, CUU #### [address] Serum globulin measurement b y calculation (mass/volume)Ordered By: Trace Lowery on 04-06-2023 Globulin (S) [Mass/Vol] 2.6 g/dL Normal [facility] Comment on above: Performed By: #### A JOSESITO RAY, CUU #### [address] Serum or plasma albumin/glob ulin mass ratioOrdered By: Trace Solimanore on 04-06-2023 Albumin/Globulin [Mass ratio] 1.7 {ratio} Normal [facility] Comment on above: Performed By: #### A CORY ELIS, CUU #### [address] Serum or plasma anion gap de terminationOrdered By: Trace Lowery on 04-06-2023 Anion gap [Moles/Vol] 12.4 mmol/L Normal 6.0-15.0 [facility] Comment on above: Performed By: #### A JOSESITO RAY, CUU #### [address] Serum or plasma non-glucuron idated bilirubin measurement (mass/volume)Ordered By: Trace Lowery on 04-06-2023 Bilirubin.indirect [Mass/Vol] 0.3 mg/dL [facility] Sodium [Moles/volume] in Ser um or PlasmaOrdered By: Trace Solimanore on 04-06-2023 Sodium [Moles/Vol] 141 mmol/L Normal 136-145 [facility] Comment on above: Performed By: #### A CORY ELIS, CUU #### [address] Specific gravity Auto test s trip (U) [Rel density]Ordered By: Trace Lowery on 04-06-2023 Specific gravity (U) [Rel density] 1.026 1.001-1.030 [facility] Squamous epithelial cells de tection in urine sediment by light microscopyOrdered By: Trace Jannyore on 04-06-2023 Epithelial cells.squamous LM Ql (Urine sed) 3-4 [HPF] 0-2 [facility] Urea nitrogen [Mass/volume] in Serum or PlasmaOrdered By: Trace Lowery on 04-06-2023 Urea nitrogen [Mass/Vol] 10 mg/dL Normal 7-25 [facility] Comment on above: Performed By: #### A DDONUAPLUS, UHCG, CUU #### [facility] [address] Urine bacteria detection by automated methodOrdered By: Trace Lowery on 04-06-2023 Bacteria Auto Ql (U) None seen None Seen [facility] Urine clarity by refractomet ry automatedOrdered By: Trace Lowery on 04-06-2023 Clarity Refractometry automated (U) Cloudy Clear [facility] Urine glucose measurement by automated test strip (mass/volume)Ordered By: Trace Lowery on 04-06-2023 Glucose Auto test strip (U) [Mass/Vol] Normal mg/dL Normal [facility] Urine hemoglobin detection b y automated test stripOrdered By: Trace Lowery on 04-06-2023 Hemoglobin Auto test strip Ql (U) Negative Negative [facility] Urine leukocyte esterase det ection by automated test stripOrdered By: Trace Lowery on 04-06-2023 Leukocyte esterase Auto test strip Ql (U) Negative Negative [facility] Urine pH measurement by auto mated test stripOrdered By: Trace Lowery on 04-06-2023 pH (U) 7.5 [pH] Normal 5.0-9.0 [facility] Comment on above: Order Comment: Name Collection Type:: Clean-Voided Midstream Performed By: #### H EPATIC, MG, LIPASE, CMP, CBC #### [facility] [address] Urobilinogen Auto test strip (U) [Mass/Vol]Ordered By: Trace Lowery on 04-06-2023 Urobilinogen (U) [Mass/Vol] Normal mg/dL Normal [facility] BMPon 04-02-2023 Anion gap [Moles/Vol] 10 mmol/L Normal 6-16 [facility] Comment on above: Performed By: #### 2 360982, 4253362, 7635461, 24154108, 81414125, 23227804, 9206523, 67666295 ####[facility] [address] [place] [address] BUN/Creat Ratio 14 No Units Normal 10-20 [facility] Comment on above: Performed By: #### 2 013716, 0027229, 8518036, 59982469, 18011689, 01178932, 6821489, 59251344 ####[facility] [address] [place] [address] Calcium [Mass/Vol] 8.4 mg/dL Low 8.9-11.1 [facility] Comment on above: Performed By: #### 2 692217, 7715468, 1141556, 53384829, 89007381, 41762582, 8694511, 92823683 ####[facility] [address] [place] [address] Chloride [Moles/Vol] 111 mmol/L Normal 101-111 [facility] Comment on above: Performed By: #### 2 311121, 8755338, 9324476, 46924909, 42422106, 36190371, 3955213, 37887949 ####[facility] [address] [place] [address] CO2 [Moles/Vol] 21 mmol/L Normal 21-31 [facility] Comment on above: Performed By: #### 2 282678, 7298049, 2535428, 89172999, 63395218, 30762104, 6907672, 82611212 ####[facility] [address] [place] [address] Creatinine [Mass/Vol] 0.7 mg/dL Normal 0.5-1.3 [facility] Comment on above: Performed By: #### 2 243082, 5985026, 5146609, 06085619, 74921003, 67475462, 5971789, 11387825 ####[facility] [address] [place] [address] Glucose [Mass/Vol] 86 mg/dL Normal 55-199 [facility] Comment on above: Performed By: #### 2 089341, 4712156, 9454302, 37049364, 83165546, 95984063, 3088761, 61925048 ####[facility] [address] [place] [address] Potassium [Moles/Vol] 3.9 mmol/L Normal 3.5-5.3 [facility] Comment on above: Performed By: #### 2 967581, 1437318, 9649974, 18611488, 37401231, 02829903, 8799349, 29278268 ####[facility] [address] [place] [address] Sodium [Moles/Vol] 138 mmol/L Normal 135-145 [facility] Comment on above: Performed By: #### 2 974332, 4344436, 7013896, 41077536, 88756505, 61564111, 9050809, 42473452 ####[facility] [address] [place] [address] Urea nitrogen [Mass/Vol] 10 mg/dL Normal 5-21 [facility] Comment on above: Performed By: #### 2 501990, 7473858, 8976060, 80553682, 98240878, 35725139, 1606893, 03892436 ####[address] [place] [address] BNPon 04-02-2023 Int Ctr BNP Pass Normal [facility] Comment on above: Order Comment: 2nd d raw rejected due to clotted speciment. Phlebotomists notified of redraw by message. [facility] 04/02/2023 12:28:38 EST Performed By: #### 2 379675, 1241293, 8321991, 88914074, 38968420, 69850468, 4036065, 38883801 ####[facility] [address] [place] [address] Natriuretic peptide B (Bld) [Mass/Vol] 25 pg/mL Normal 5-80 [facility] Comment on above: Order Comment: 2nd d raw rejected due to clotted speciment. Phlebotomists notified of redraw by message. [facility] 04/02/2023 12:28:38 EST Performed By: #### 2 263496, 1031239, 9560391, 48872453, 70423379, 88904397, 8453117, 27695313 ####[facility] [address] [place] [address] CBC w/ Auto Diffon 4 Basophil Absolute 0.0 E9/L Normal 0.0-0.2 [facility] Comment on above: Order Comment: speci men rejected due to clot. Phlebotomists notified by message. [facility] 04/02/2023 11:56:19 EST\2nd draw rejected due to clot. Phlebotomists notified by message. [facility] 04/02/2023 12:27:56 EST Performed By: #### 2 856056, 3522162, 7104374, 27585859, 91884848, 48227098, 0942107, 14099333 ####[facility] [address] [place] [address] Basophils/100 WBC (Bld) 0.8 % Normal 0.0-2.0 [facility] Comment on above: Order Comment: speci men rejected due to clot. Phlebotomists notified by message. [facility] 04/02/2023 11:56:19 EST\2nd draw rejected due to clot. Phlebotomists notified by message. [facility] 04/02/2023 12:27:56 EST Performed By: #### 2 717999, 2201158, 6585903, 66002392, 60493810, 30287601, 9325276, 15564357 ####[facility] [address] [place] [address] Eos Absolute 0.2 E9/L Normal 0.0-0.5 [facility] Comment on above: Order Comment: speci men rejected due to clot. Phlebotomists notified by message. [facility] 04/02/2023 11:56:19 EST\2nd draw rejected due to clot. Phlebotomists notified by message. [facility] 04/02/2023 12:27:56 EST Performed By: #### 2 397985, 9702036, 5549773, 78768689, 20715976, 73896762, 8090187, 79896788 ####[facility] [address] [place] [address] Eosinophils/100 WBC (Bld) 3.1 % Normal 0.0-8.0 [facility] Comment on above: Order Comment: speci men rejected due to clot. Phlebotomists notified by message. [facility] 04/02/2023 11:56:19 EST\2nd draw rejected due to clot. Phlebotomists notified by message. [facility] 04/02/2023 12:27:56 EST Performed By: #### 2 390563, 4127551, 1755148, 28027341, 90824198, 23690366, 1495837, 17553154 ####[facility] [address] [place] [address] Erythrocyte distribution width (RBC) [Ratio] 14.0 % Normal 10.9-14.2 [facility] Comment on above: Order Comment: speci men rejected due to clot. Phlebotomists notified by message. [facility] 04/02/2023 11:56:19 EST\2nd draw rejected due to clot. Phlebotomists notified by message. [facility] 04/02/2023 12:27:56 EST Performed By: #### 2 247268, 6843318, 2759876, 52355461, 19829954, 94867318, 1214922, 31834098 ####[facility] [address] [place] [address] Hematocrit (Bld) [Volume fraction] 38.0 % Normal 34.0-46.0 [facility] Comment on above: Order Comment: speci men rejected due to clot. Phlebotomists notified by message. [facility] 04/02/2023 11:56:19 EST\2nd draw rejected due to clot. Phlebotomists notified by message. [facility] 04/02/2023 12:27:56 EST Performed By: #### 2 815191, 8283882, 5867732, 20759320, 14940003, 56163331, 8916265, 02271449 ####[facility] [address] [place] [address] Hemoglobin (Bld) [Mass/Vol] 12.8 g/dL Normal 12.0-16.0 [facility] Comment on above: Order Comment: speci men rejected due to clot. Phlebotomists notified by message. [facility] 04/02/2023 11:56:19 EST\2nd draw rejected due to clot. Phlebotomists notified by message. [facility] 04/02/2023 12:27:56 EST Performed By: #### 2 139458, 2138364, 1114245, 28726478, 56241849, 67850976, 2918423, 55786933 ####[facility] [address] [place] [address] Lymph Absolute 1.8 E9/L Normal 1.0-4.0 [facility] Comment on above: Order Comment: speci men rejected due to clot. Phlebotomists notified by message. [facility] 04/02/2023 11:56:19 EST\2nd draw rejected due to clot. Phlebotomists notified by message. [facility] 04/02/2023 12:27:56 EST Performed By: #### 2 753342, 3541347, 3034168, 92591315, 22065383, 41415829, 6968851, 11130389 ####[facility] [address] [place] [address] Lymphocytes/100 WBC (Bld) 34.1 % Normal 14.0-50.0 [facility] Comment on above: Order Comment: speci men rejected due to clot. Phlebotomists notified by message. [facility] 04/02/2023 11:56:19 EST\2nd draw rejected due to clot. Phlebotomists notified by message. [facility] 04/02/2023 12:27:56 EST Performed By: #### 2 099037, 6661814, 9836032, 94288146, 38660873, 36566363, 9511605, 78909768 ####[facility] [address] [place] [address] MCH (RBC) [Entitic mass] 29.8 pg Normal 27.0-34.0 [facility] Comment on above: Order Comment: speci men rejected due to clot. Phlebotomists notified by message. [facility] 04/02/2023 11:56:19 EST\2nd draw rejected due to clot. Phlebotomists notified by message. [facility] 04/02/2023 12:27:56 EST Performed By: #### 2 686898, 9050546, 4408585, 96551821, 51696657, 01944115, 0054846, 22766649 ####[facility] [address] [place] [address] MCHC (RBC) [Mass/Vol] 33.5 g/dL Normal 31.4-36.0 [facility] Comment on above: Order Comment: speci men rejected due to clot. Phlebotomists notified by message. [facility] 04/02/2023 11:56:19 EST\2nd draw rejected due to clot. Phlebotomists notified by message. [facility] 04/02/2023 12:27:56 EST Performed By: #### 2 426966, 7492077, 4295655, 68636598, 13639216, 54744587, 4598872, 32634113 ####[facility] [address] [place] [address] MCV (RBC) [Entitic vol] 88.9 fL Normal 80.0-100.0 [facility] Comment on above: Order Comment: speci men rejected due to clot. Phlebotomists notified by message. [facility] 04/02/2023 11:56:19 EST\2nd draw rejected due to clot. Phlebotomists notified by message. [facility] 04/02/2023 12:27:56 EST Performed By: #### 2 441965, 8702764, 2415283, 46034244, 84091983, 40879799, 5428473, 54437415 ####[facility] [address] [place] [address] [place] Absolute 0.4 E9/L Normal 0.2-1.0 [facility] Comment on above: Order Comment: speci men rejected due to clot. Phlebotomists notified by message. [facility] 04/02/2023 11:56:19 EST\2nd draw rejected due to clot. Phlebotomists notified by message. [facility] 04/02/2023 12:27:56 EST Performed By: #### 2 751636, 8507812, 3503156, 94639705, 44564368, 93486870, 3664546, 85762338 ####[facility] [address] [place] [address] Monocytes/100 WBC (Bld) 7.4 % Normal 4.0-14.0 [facility] Comment on above: Order Comment: speci men rejected due to clot. Phlebotomists notified by message. [facility] 04/02/2023 11:56:19 EST\2nd draw rejected due to clot. Phlebotomists notified by message. [facility] 04/02/2023 12:27:56 EST Performed By: #### 2 654984, 5999780, 4237325, 11590336, 04835378, 49538428, 5044457, 02249647 ####[facility] [address] [place] [address] Neutro Absolute 2.9 E9/L Normal 2.0-7.5 [facility] Comment on above: Order Comment: speci men rejected due to clot. Phlebotomists notified by message. [facility] 04/02/2023 11:56:19 EST\2nd draw rejected due to clot. Phlebotomists notified by message. [facility] 04/02/2023 12:27:56 EST Performed By: #### 2 099150, 2461459, 1540493, 81768092, 05975858, 76827135, 1835754, 64493612 ####[facility] [address] [place] [address] Neutro Auto 54.6 % Normal 36.0-75.0 [facility] Comment on above: Order Comment: speci men rejected due to clot. Phlebotomists notified by message. [facility] 04/02/2023 11:56:19 EST\2nd draw rejected due to clot. Phlebotomists notified by message. [facility] 04/02/2023 12:27:56 EST Performed By: #### 2 176970, 0365088, 7025906, 03305281, 20885893, 88701757, 0816748, 55756826 ####[facility] [address] [place] [address] Platelet 204.0 E9/L Normal 150.0-500.0 [facility] Comment on above: Order Comment: speci men rejected due to clot. Phlebotomists notified by message. [facility] 04/02/2023 11:56:19 EST\2nd draw rejected due to clot. Phlebotomists notified by message. [facility] 04/02/2023 12:27:56 EST Result Comment: Veri fied with slide review Performed By: #### 2 323112, 5779575, 3426558, 77363345, 22616785, 75236289, 3241720, 54215899 ####[facility] [address] [place] [address] Platelet mean volume (Bld) [Entitic vol] 9.8 fL Normal 6.4-10.8 [facility] Comment on above: Order Comment: speci men rejected due to clot. Phlebotomists notified by message. [facility] 04/02/2023 11:56:19 EST\2nd draw rejected due to clot. Phlebotomists notified by message. [facility] 04/02/2023 12:27:56 EST Performed By: #### 2 107665, 7350080, 3555801, 31323934, 26550892, 86268650, 0622841, 73080689 ####[facility] [address] [place] [address] RBC 4.3 E12/L Normal 4.3-5.9 [facility] Comment on above: Order Comment: speci men rejected due to clot. Phlebotomists notified by message. [facility] 04/02/2023 11:56:19 EST\2nd draw rejected due to clot. Phlebotomists notified by message. [facility] 04/02/2023 12:27:56 EST Performed By: #### 2 156599, 2043053, 9763763, 95006975, 87861233, 19561743, 7720931, 80272867 ####[facility] [address] [place] [address] WBC 5.3 E9/L Normal 4.0-11.0 [facility] Comment on above: Order Comment: speci men rejected due to clot. Phlebotomists notified by message. [facility] 04/02/2023 11:56:19 EST\2nd draw rejected due to clot. Phlebotomists notified by message. [facility] 04/02/2023 12:27:56 EST Performed By: #### 2 288725, 8729782, 4480898, 78250608, 82154445, 40478601, 3801267, 61645769 ####[facility] [address] [place] [address] CHEMISTRYOrdered By: SYSTEM SYSTEM on 04-02-2023 Troponin [...] Sensitivity Troponin I Instructions For Use, [place], September 2017) Albumin [Mass/Vol] 3.9 g/dL Normal [...] Sensitivity Troponin I Instructions For Use, [place], September 2017) Anion gap [Moles/Vol] 10 mmol/L [...] 25 pg/mL Normal 5 - 80 pg/mL [facility] COAGULATIONOrdered By: Gladys Arroyo on 04-02-2023 aPTT Coag (PPP) [Time] 33.2 s Normal 25.1 - 36.5 second(s) [facility] Comment on above: Interpretive Data: Leonel lamas 15 days - 4 weeks 1 [...] the same coagulation reagent and instrumentation as [facility]. Currently there are no coagulation studies available worldwide for children to 14 days, and no normal ranges. Heparin therapeutic range (represented by Anti-Factor Xa activity of 0.2 - 0.4 U/mL) corresponds to PTT of 56.6 - 109.0 sec. Fibrin D-dimer FEU (PPP) [Mass/Vol] 541 ng/mL FEU Invalid Interpretation Code 215 - 500 ng/mL FEU [facility] Comment on above: Result Comment: [...] [Relative time] 1.14 {INR} Invalid Interpretation Code [facility] Auto Coag Comment on above: Interpretive Data: I NR results are specifically intended to assess patients stabilized on long-term Anticoagulation therapy suggested INR s Less Intensive Anticoagulation 2.0 3.0 Conventional Range 3.0 4.5 PT Coag (PPP) [Time] 12.7 s High 9.4 - 12.5 second(s) [facility] Auto Coag Comment on above: Interpretive Data: [...] the same coagulation reagent and instrumentation as [facility]. Currently there are no coagulation studies available worldwide for children to 14 days, and no normal ranges. CTA Abdomen and Pelvison CTA Abdomen and Pelvis Normal [facility] CTA Cheston 04-02-2023 CTA Chest Normal [facility] Consent for Treatmenton 03-18 Consent for Treatment [id number] B5#1.00TIFF Normal [facility] D-Dimeron 04-02-2023 Fibrin D-dimer FEU (PPP) [Mass/Vol] 541 [id number] Abnormal 215-500 [facility] Comment on above: Order Comment: speci men rejected due to clot. Phlebotomists notified by message. bmf 04/02/2023 12:33:03 EST Result Comment: Leyda spences Called To TAMIKO/Mauricio López By And Read [...] skin infectionsLiver cirrhosisPregnancy Performed By: #### 2 142331, 9772976, 8196592, 97947495, 96887710, 49382645, 1217663, 04440861 ####[facility] [address] [place] [address] Discharge Instructionson Discharge Instructions [id number] 98#1.00TIFF Normal [facility] ED Clinical Summaryon 2023 ED Clinical Summary Normal [facility] ED Note-Physicianon 04-02-19 ED Note-Physician Normal [facility] Comment on above: Result Comment: Elec tronically Signed By: Jose Ramon Martinez, sAhutosh Mendiola.rene\Date and Time Signed: 04/02/23 17:20 EST ED Patient Education Noteon 04-02-2023 ED Patient Education Note Normal [facility] ED Patient Summaryon 024 ED Patient Summary Normal [facility] Free T4on 04-02-2023 Free T4 [Mass/Vol] 0.75 ng/dL Normal 0.58-1.64 [facility] Comment on above: Performed By: #### 2 868683, 08103318, 5670222, 8169677 ####[facility] [address] [place] [address] HEMATOLOGYOrdered By: SYSTEM SYSTEM on 04-02-2023 Basophil [...] Normal 80.0 - 100.0 fL Remisol Heme [place] Absolute 0.4 E9/L Normal 0.2 - 1.0 [...] 04-02-2023 Albumin [Mass/Vol] 3.9 g/dL Normal 3.3-5.0 [facility] Comment on above: Performed By: #### 2 534759, 88832947, 5072842, 0920726 ####[facility] [address] [place] [address] Albumin/Globulin [Mass ratio] 1.6 {ratio} Normal 1.1-2.2 [facility] Comment on above: Performed By: #### 2 157833, 65415861, 2955409, 6550816 ####[facility] [address] [place] [address] Alk Phos 50 Int._Unit/L Normal 21-98 [facility] Comment on above: Performed By: #### 2 803036, 40723674, 7535899, 0119988 ####[facility] [address] [place] [address] ALT 27 Int._Unit/L Normal 6-46 [facility] Comment on above: Performed By: #### 2 230065, 19784793, 6468950, 9608385 ####[facility] [address] [place] [address] AST 36 Int._Unit/L Normal 5-43 [facility] Comment on above: Performed By: #### 2 339011, 00894094, 2376905, 2973572 ####[facility] [address] [place] [address] Bili Direct 0.0 mg/dL Normal 0.0-0.4 [facility] Comment on above: Performed By: #### 2 917114, 84174746, 1877478, 4057924 ####[facility] [address] [place] [address] Bili Indirect 0.3 mg/dL Normal 0.1-0.9 [facility] Comment on above: Performed By: #### 2 237957, 31178743, 1900617, 2165518 ####[facility] [address] [place] [address] Bili Total 0.3 mg/dL Normal 0.0-1.1 [facility] Comment on above: Performed By: #### 2 442557, 37879314, 5681896, 8338135 ####[address] [address] Globulin (S) [Mass/Vol] 2.4 g/dL Normal 1.4-4.0 [facility] Comment on above: Performed By: #### 2 344323, 51145093, 4660299, 0611574 ####[address] [address] Protein [Mass/Vol] 6.3 g/dL Normal 6.0-7.8 [facility] Comment on above: Performed By: #### 2 290614, 25778545, 6461846, 3689387 ####[address] [address] Lipase Levelon 04-02-2023 Lipase Lvl 124 unit/L High 13-58 [facility] Comment on above: Performed By: #### 2 508224, 69845321, 5338764, 4724756 ####[address] [address] Magnesiumon 04-02-2023 Magnesium [Mass/Vol] 1.9 mg/dL Normal 1.3-2.4 [facility] Comment on above: Performed By: #### 2 415422, 0906740, 5893416, 07081226, 39369602, 72192552, 3040147, 54151751 ####[address] [place] [address] PT & PTTon 04-02-2023 aPTT Coag (PPP) [Time] 33.2 second(s) Normal 25.1-36.5 [facility] Comment on above: Order Comment: speci men rejected due to clot. phlebotomists notified of redraw by message. [facility] 04/02/2023 12:33:39 EST Result Comment: Para [...] the same coagulation reagent and instrumentation as [facility]. Currently there are no coagulation studies available worldwide for children to 14 days, and no normal ranges. Heparin therapeutic range (represented by Anti-Factor Xa activity of 0.2 - 0.4 U/mL) corresponds to PTT of 56.6 - 109.0 sec. Performed By: #### 2 581574, 8414614, 0894327, 11244154, 82427220, 06103381, 0372262, 37807085 ####[facility] [address] [place] [address] INR Coag (PPP) [Relative time] 1.14 {INR} Invalid Interpretation Code [facility] Comment on above: Order Comment: speci men rejected due to clot. phlebotomists notified of redraw by message. [facility] 04/02/2023 12:33:39 EST Result Comment: INR results are specifically intended to assess patients stabilized on long-term Anticoagulation therapy suggested INR?s ?Less Intensive Anticoagulation? 2.0 ? 3.0Conventional Range 3.0 ? 4.5 Performed By: #### 2 679904, 6730956, 6382018, 45898276, 64623950, 84823535, 7162913, 78900252 ####[facility] [address] [place] [address] PT Coag (PPP) [Time] 12.7 second(s) High 9.4-12.5 [facility] Comment on above: Order Comment: speci men rejected due to clot. phlebotomists notified of redraw by message. [facility] 04/02/2023 12:33:39 EST Result Comment: 15 [...] the same coagulation reagent and instrumentation as [facility]. Currently there are no coagulation studies available worldwide for children to 14 days, and no normal ranges. Performed By: #### 2 694694, 2490924, 2447508, 17508338, 96784971, 80143678, 0750556, 27437979 ####[facility] [address] [place] [address] Pre-Arrival Noteon Pre-Arrival Note Normal [facility] Progress Note-Nurseon 2023 Progress Note-Nurse CT called and verbalized IV infiltrated when attempting to flush. IV removed per this nurse and attempted to place IV with unsuccessful attempts. Dr. Albright and Sabina, RN aware. Normal [facility] TSH With T4fr Reflexon 04-02 TSH Qn 0.11 m[IU]/L Low 0.34-5.60 [facility] Comment on above: Performed By: #### 2 189417, 00100274, 7643114, 9230506 ####[facility] [address] [place] [address] Troponin 0 Hr.on 04-02-2023 Troponin 2.40 pg/mL Low 10.10-27.10 [facility] Comment on above: Result Comment: The 95% CI (Confidence Interval) PPV (Positive Predictive Value) for myocardial infarction in females is 38 pg/mL, in males 51 pg/mL. The results should be used in conjunction with clinical conditions of myocardial infarction.(Access High Sensitivity Troponin I Instructions For Use, [employer], September 2017) Performed By: #### 2 286049, 6262490, 5967895, 45074499, 19979070, 35480228, 1839231, 32956669 ####[facility] [address] [place] [address] Troponin 3 Hr.on 04-02-2023 Troponin I.cardiac [Mass/Vol] ng/mL Low .12-11. [facility] Comment on above: Result Comment: The 95% CI (Confidence Interval) PPV (Positive Predictive Value) for myocardial infarction in females is 38 pg/mL, in males 51 pg/mL. The results should be used in conjunction with clinical conditions of myocardial infarction.(Allocab High Sensitivity Troponin I Instructions For Use, [employer], September 2017) Performed By: #### 1 0206789 ####[facility] [address] [place] [address] XR Chest Single Viewon 04-02 XR Chest Single View Normal [facility] eGFRon 04-02-2023 eGFR 116 mL/min/1.73 m2 Normal >=59 [facility] Comment on above: Order Comment: Order added by Discern Expert. Performed By: #### 2 369453, 1011075, 1001032, 30707054, 21038210, 38928686, 2124184, 61825838 ####[facility] [address] [place] [address] Home Health Recordson 2023 Home Health Records [id number] F2#1.00TIFF Normal [facility] Ambulatory Visit Summaryon 0 03-24-2023 Ambulatory Visit Summary Normal [facility] Auth for Release of Medical Recordson 03-24-2023 Auth for Release of Medical Records [id number] 9F#1.00TIFF Normal [facility] Family Medicine Office/Clini c Noteon 03-24-2023 Family Medicine Office/Clinic Note Normal [facility] Comment on above: Result Comment: Elec tronically Signed By: Jaquan Paula.rene\Date and Time Signed: 03/24/23 15:20 EST CBC panel Auto (Bld)on 03-19 Erythrocyte distribution width (RBC) [Ratio] 12.1 % 11.5 - 14.5 % [facility] Hematocrit (Bld) [Volume fraction] 33.7 % Low 36.0 - 46.0 % [facility] Hemoglobin (Bld) [Mass/Vol] 11.9 g/dL Low 12.0 - 16.0 g/dL [facility] Interpretation and review of laboratory results Abnormal [facility] MCH (RBC) [Entitic mass] 30.1 pg 26.0 - 34.0 pg [facility] MCHC (RBC) [Mass/Vol] 35.3 g/dL 32.0 - 36.0 g/dL [facility] MCV (RBC) [Entitic vol] 85 fL 80 - 100 fL [facility] Nucleated RBC/100 WBC (Bld) [Ratio] 0.0 % [facility] Platelets (Bld) [#/Vol] 285 10*3/uL [facility] RBC (Bld) [#/Vol] 3.96 10*6/uL [facility] WBC (Bld) [#/Vol] 4.3 10*3/uL [facility] Erythrocyte distribution width (RBC) [Ratio] 12.1 % Normal 11.5-14.5 [facility] Comment on above: Performed By: #### V ERAB #### MELISA Galvan ([id number]) [facility] ([facility]) [address] [place] [address] Hematocrit (Bld) [Volume fraction] 33.7 % Low 36.0-46.0 [facility] Comment on above: Performed By: #### V ERAB #### MELISA Galvan () [facility] ([facility]) [address] [place] [address] [place] Hemoglobin (Bld) [Mass/Vol] 11.9 g/dL Low 12.0-16.0 [facility] Comment on above: Performed By: #### V ERAB #### MELISA Galvan () [facility] ([facility]) [address] [place] [address] [place] MCH (RBC) [Entitic mass] 30.1 pg Normal 26.0-34.0 [facility] Comment on above: Performed By: #### V ERAB #### MELISA Galvan () [facility] ([facility]) [address] [place] [address] [place] MCHC (RBC) [Mass/Vol] 35.3 g/dL Normal 32.0-36.0 [facility] Comment on above: Performed By: #### V ERAB #### MELISA Galvan () [facility] ([facility]) [address] [place] [address] [place] MCV (RBC) [Entitic vol] 85 fL Normal 80-100 [facility] Comment on above: Performed By: #### V ERAB #### MELISA Galvan () [facility] ([facility]) [address] [place] [address] [place] Nucleated RBC/100 WBC (Bld) [Ratio] 0.0 /100 WBCs Normal 0.0-0.0 [facility] Comment on above: Performed By: #### V ERAB #### MELISA Galvan () [facility] ([facility]) [address] [place] [address] [place] Platelets (Bld) [#/Vol] 285 x10*3/uL Normal 150-450 [facility] Comment on above: Performed By: #### V ERAB #### MELISA Galvan ([id number]) [facility] ([facility]) [address] [place] [address] [place] RBC (Bld) [#/Vol] 3.96 x10*6/uL Low 4.00-5.20 [facility] Comment on above: Performed By: #### V ERAB #### MELISA POOLESarwat Galvan ([id number]) [facility] ([facility]) [address] [place] [address] [place] WBC (Bld) [#/Vol] 4.3 x10*3/uL Low 4.4-11.3 [facility] Comment on above: Performed By: #### V ERAB #### MELISA MC Mandy ([id number]) [facility] ([facility]) [address] [place] [address] Comprehensive metabolic 2000 panelon 03-19-2023 Albumin [Mass/Vol] 3.2 g/dL Low 3.5 - 5.0 g/dL [facility] ALP (Bld) [Catalytic activity/Vol] 68 U/L 35 - 125 U/L [facility] ALT [Catalytic activity/Vol] 14 U/L 5 - 40 U/L [facility] Anion gap [Moles/Vol] 13 mmol/L NINF - 19 mmol/L [facility] AST [Catalytic activity/Vol] 27 U/L 5 - 40 U/L [facility] Bilirubin [Mass/Vol] 0.4 mg/dL 0.1 - 1.2 mg/dL [facility] Calcium [Mass/Vol] 8.7 mg/dL 8.5 - 10.4 mg/dL [facility] Chloride [Moles/Vol] 106 mmol/L 97 - 107 mmol/L [facility] CO2 [Moles/Vol] 21 mmol/L Low 24 - 31 mmol/L [facility] Creatinine [Mass/Vol] 0.60 mg/dL 0.40 - 1.60 mg/dL [facility] eGFR - PINF [facility] Comment on above: Calculations of jessica mated GFR are performed using the 2020 CKD-EPI Study Refit equation without the race variable for the IDMS-Traceable creatinine methods. https://jasn.asnjournals.org/content//ASN.41408575 88 Glucose [Mass/Vol] 98 mg/dL 65 - 99 mg/dL [facility] Interpretation and review of laboratory results Abnormal [facility] Potassium [Moles/Vol] 3.7 mmol/L 3.4 - 5.1 mmol/L [facility] Protein [Mass/Vol] 5.7 g/dL Low 5.9 - 7.9 g/dL [facility] Sodium [Moles/Vol] 140 mmol/L 133 - 145 mmol/L [facility] Urea nitrogen [Mass/Vol] 5 mg/dL Low 8 - 25 mg/dL [facility] Albumin [Mass/Vol] 3.2 g/dL Low 3.5-5.0 [facility] Comment on above: Performed By: #### V ERAB #### MELISA Galvan ([id number]) [facility] ([facility]) [address] [place] [address] [place] ALP (Bld) [Catalytic activity/Vol] 68 U/L Normal 35-125 [facility] Comment on above: Performed By: #### V ERAB #### MELISA Galvan ([id number]) [facility] ([facility]) [address] [place] [address] US ALT [Catalytic activity/Vol] 14 U/L Normal 5-40 [facility] Comment on above: Performed By: #### V ERAB #### MELISA Galvan ([id number]) [facility] ([facility]) [address] [place] [address] [place] Anion gap [Moles/Vol] 13 mmol/L Normal <=19 [facility] Comment on above: Performed By: #### V ERAB #### MELISA Galvan ([id number]) [facility] ([facility]) [address] [facility] [place] [address] [place] AST [Catalytic activity/Vol] 27 U/L Normal 5-40 [facility] Comment on above: Performed By: #### V ERAB #### MELISA Galvan ([id number]) [facility] ([facility]) [address] [facility] [place] [address] [place] Bilirubin [Mass/Vol] 0.4 mg/dL Normal 0.1-1.2 [facility] Comment on above: Performed By: #### V ERAB #### MELISA Galvan ([id number]) [facility] ([facility]) [address] [place] [address] [place] Calcium [Mass/Vol] 8.7 mg/dL Normal 8.5-10.4 [facility] Comment on above: Performed By: #### V ERAB #### MELISA Galvan ([id number]) [facility] ([facility]) [address] [place] [address] [place] Chloride [Moles/Vol] 106 mmol/L Normal 97-107 [facility] Comment on above: Performed By: #### V ERAB #### MELISA Galvan ([id number]) [facility] ([facility]) [address] [place] [address] [place] CO2 [Moles/Vol] 21 mmol/L Low 24-31 [facility] Comment on above: Performed By: #### V ERAB #### MELISA Galvan ([id number]) [facility] [address] [place] [address] [place] Creatinine [Mass/Vol] 0.60 mg/dL Normal 0.40-1.60 [facility] Comment on above: Performed By: #### V ERAB #### MELISA Galvan ([id number]) [facility] ([facility]) [address] [place] [address] US GFR/1.73 sq M.predicted MDRD (S/P/Bld) [Vol rate/Area] mL/min/{1.73_m2} Normal >60 [facility] Comment on above: Result Comment: Calc ulations of estimated GFR are performed using the 2020 CKD-EPI Study Refit equation without the race variable for the IDMS-Traceable creatinine methods. https://jasn.asnjournals.org/content//ASN.06960727 88 Performed By: #### V ERAB #### MELISA Galvan ([id number]) [facility] ([facility]) [address] [place] [address] [place] Glucose [Mass/Vol] 98 mg/dL Normal 65-99 [facility] Comment on above: Performed By: #### V ERAB #### MELISA MC Mandy ([id number]) [facility] ([facility]) [address] [place] [address] [place] Potassium [Moles/Vol] 3.7 mmol/L Normal 3.4-5.1 [facility] Comment on above: Performed By: #### V ERAB #### MELISA Galvan ([id number]) [facility] ([facility]) [address] [place] [address] [place] Protein [Mass/Vol] 5.7 g/dL Low 5.9-7.9 [facility] Comment on above: Performed By: #### V ERAB #### MELISA Galvan ([id number]) [facility] ([facility]) [address] [place] [address] [place] Sodium [Moles/Vol] 140 mmol/L Normal 133-145 [facility] Comment on above: Performed By: #### V ERAB #### MELISA Galvan ([id number]) [facility] ([facility]) [address] [place] [address] [place] Urea nitrogen [Mass/Vol] 5 mg/dL Low 8-25 [facility] Comment on above: Performed By: #### V ERAB #### MELISA ALEXANDRO J ([id number]) [facility] ([facility]) [address] [place] [address] US EGDon 03-19-2023 Esophagogastroduode noscopy Table formatting from the original result was not included. Normal [facility] EGD Study observation Narrat iveon 03-19-2023 [...] Tomasa Keyes, DEE 03/19/2023 1431 Procedure Location [address] [address] Referring Provider Generic Provider Singer No address on file Procedure Provider No name on file [facility] Work Phone: Radiology Study observation (narrative) [facility] Work Phone: EGD Study observation Narrat iveOrdered By: Eve Agosto on 03-19-2023 [facility] Work Phone: Home Health Recordson 2023 Home Health Records [id number] 90#1.00TIFF Prabhakar Salvador [facility] Surgical pathology studyon 0 03-19-2023 Surgical pathology study Pathology report.total SEE COMMENT Surgical Pathology Case: [id number] Authorizing Provider: Eve Agosto MD Collected: 03/19/2023 1431 Ordering Location: [facility] Received: 03/19/2023 [address] [facility] Pathologist: Melisa Mc MD Specimen: STOMACH ANTRUM [...] is submitted in toto in 1 cassette. [facility] Gross dissection performed at: [place] [address] Normal [facility] CBC panel Auto (Bld)on 03-18 Erythrocyte distribution width (RBC) [Ratio] 12.5 % 11.5 - 14.5 % [facility] Hematocrit (Bld) [Volume fraction] 37.2 % 36.0 - 46.0 % [facility] Hemoglobin (Bld) [Mass/Vol] 12.1 g/dL 12.0 - 16.0 g/dL [facility] Interpretation and review of laboratory results Abnormal [facility] MCH (RBC) [Entitic mass] 30.0 pg 26.0 - 34.0 pg [facility] MCHC (RBC) [Mass/Vol] 32.5 g/dL 32.0 - 36.0 g/dL [facility] MCV (RBC) [Entitic vol] 92 fL 80 - 100 fL [facility] Nucleated RBC/100 WBC (Bld) [Ratio] 0.0 % [facility] Platelets (Bld) [#/Vol] 266 10*3/uL [facility] RBC (Bld) [#/Vol] 4.03 10*6/uL [facility] WBC (Bld) [#/Vol] 4.0 10*3/uL Low [facility] Erythrocyte distribution width (RBC) [Ratio] 12.5 % Normal 11.5-14.5 [facility] Comment on above: Performed By: #### 5 8410-2 ####MELISA Galvan ([id number])[facility] ()[address] [place] [address] Hematocrit (Bld) [Volume fraction] 37.2 % Normal 36.0-46.0 [facility] Comment on above: Performed By: #### 5 8410-2 ####MELISA Galvan ([id number])[facility] ()[address] [place] [address] Hemoglobin (Bld) [Mass/Vol] 12.1 g/dL Normal 12.0-16.0 [facility] Comment on above: Performed By: #### 5 8410-2 ####MELISA Galvan ([id number])[facility] ()[address] [place] [address] MCH (RBC) [Entitic mass] 30.0 pg Normal 26.0-34.0 [facility] Comment on above: Performed By: #### 5 8410-2 ####MELISA Galvan ([id number])[facility] ()[address] [place] [address] MCHC (RBC) [Mass/Vol] 32.5 g/dL Normal 32.0-36.0 [facility] Comment on above: Performed By: #### 5 8410-2 ####MELISA Galvan ([id number])[facility] ()[address] [place] [address] MCV (RBC) [Entitic vol] 92 fL Normal 80-100 [facility] Comment on above: Performed By: #### 5 8410-2 ####MELISA Galvan ([id number])[facility] ()[address] [place] [address] Nucleated RBC/100 WBC (Bld) [Ratio] 0.0 /100 WBCs Normal 0.0-0.0 [facility] Comment on above: Performed By: #### 5 8410-2 ####MELISA Galvan ([id number])[facility] ()[address] [place] [address] Platelets (Bld) [#/Vol] 266 x10*3/uL Normal 150-450 [facility] Comment on above: Performed By: #### 5 8410-2 ####MELISA Galvan ([id number])[facility] ()[address] [place] [address] RBC (Bld) [#/Vol] 4.03 x10*6/uL Normal 4.00-5.20 [facility] Comment on above: Performed By: #### 5 8410-2 ####MELISA Galvan ([id number])[facility] ()[address] [place] [address] WBC (Bld) [#/Vol] 4.0 x10*3/uL Low 4.4-11.3 [facility] Comment on above: Performed By: #### 5 8410-2 ####MELISA Galvan ([id number])[facility] ()[address] [place] [address] Comprehensive metabolic 2000 panelon 03-18-2023 Albumin [Mass/Vol] 3.0 g/dL Low 3.5 - 5.0 g/dL [facility] ALP (Bld) [Catalytic activity/Vol] 66 U/L 35 - 125 U/L [facility] ALT [Catalytic activity/Vol] 17 U/L 5 - 40 U/L [facility] Anion gap [Moles/Vol] 10 mmol/L NINF - 19 mmol/L [facility] AST [Catalytic activity/Vol] 33 U/L 5 - 40 U/L [facility] Bilirubin [Mass/Vol] 0.3 mg/dL 0.1 - 1.2 mg/dL [facility] Calcium [Mass/Vol] 8.4 mg/dL Low 8.5 - 10.4 mg/dL [facility] Chloride [Moles/Vol] 108 mmol/L High 97 - 107 mmol/L [facility] CO2 [Moles/Vol] 19 mmol/L Low 24 - 31 mmol/L [facility] Creatinine [Mass/Vol] 0.80 mg/dL 0.40 - 1.60 mg/dL [facility] eGFR - PINF [facility] Comment on above: Calculations of jessica mated GFR are performed using the 2020 CKD-EPI Study Refit equation without the race variable for the IDMS-Traceable creatinine methods. https://jasn.asnjournals.org/content/early/ASN.19927372 88 Glucose [Mass/Vol] 79 mg/dL 65 - 99 mg/dL [facility] Interpretation and review of laboratory results Abnormal [facility] Potassium [Moles/Vol] 3.8 mmol/L 3.4 - 5.1 mmol/L [facility] Protein [Mass/Vol] 5.7 g/dL Low 5.9 - 7.9 g/dL Un [facility] Sodium [Moles/Vol] 137 mmol/L 133 - 145 mmol/L [facility] Urea nitrogen [Mass/Vol] 5 mg/dL Low 8 - 25 mg/dL [facility] Albumin [Mass/Vol] 3.0 g/dL Low 3.5-5.0 [facility] Comment on above: Performed By: #### 2 4323-8 ####MELISA Galvan ([id number])[facility] ()[address] [place] [address] ALP (Bld) [Catalytic activity/Vol] 66 U/L Normal 35-125 [facility] Comment on above: Performed By: #### 2 432-8 ####MELISA Galvan ([id number])[facility] ()[address] [place] [address] ALT [Catalytic activity/Vol] 17 U/L Normal 5-40 [facility] Comment on above: Performed By: #### 2 432-8 ####MELISA Galvan ([id number])[facility] ()[address] [place] [address] Anion gap [Moles/Vol] 10 mmol/L Normal <=19 [facility] Comment on above: Performed By: #### 2 432-8 ####MELISA Galvan ([id number])[facility] ()[address] [place] [address] AST [Catalytic activity/Vol] 33 U/L Normal 5-40 [facility] Comment on above: Performed By: #### 2 4323-8 ####MELISA Galvan ([id number])[facility] ()[address] [place] [address] Bilirubin [Mass/Vol] 0.3 mg/dL Normal 0.1-1.2 [facility] Comment on above: Performed By: #### 2 4323-8 ####MELISA Galvan ([id number])[facility] ()[address] [place] [address] Calcium [Mass/Vol] 8.4 mg/dL Low 8.5-10.4 [facility] Comment on above: Performed By: #### 2 4323-8 ####MELISA Galvan ([id number])[facility] ()[address] [place] [address] Chloride [Moles/Vol] 108 mmol/L High 97-107 [facility] Comment on above: Performed By: #### 2 4323-8 ####MELISA Galvan ([id number])[facility] ()[address] [place] [address] CO2 [Moles/Vol] 19 mmol/L Low 24-31 [facility] Comment on above: Performed By: #### 2 432-8 ####MELISA Galvan ([id number])[facility] ()[address] [place] [address] Creatinine [Mass/Vol] 0.80 mg/dL Normal 0.40-1.60 [facility] Comment on above: Performed By: #### 2 4323-8 ####MELISA Galvan ([id number])[facility] ()[address] [place] [address] GFR/1.73 sq M.predicted MDRD (S/P/Bld) [Vol rate/Area] mL/min/{1.73_m2} Normal >60 [facility] Comment on above: Result Comment: Calc ulations of estimated GFR are performed using the 2020 CKD-EPI Study Refit equation without the race variable for the IDMS-Traceable creatinine methods. https://jasn.asnjournals.org/content/early//ASN.25574678 88 Performed By: #### 2 4323-8 ####MELISA Galvan ([id number])[facility] ()[address] [place] [address] Glucose [Mass/Vol] 79 mg/dL Normal 65-99 [facility] Comment on above: Performed By: #### 2 4323-8 ####MELISA Galvan ([id number])[facility] ()[address] [place] [address] Potassium [Moles/Vol] 3.8 mmol/L Normal 3.4-5.1 [facility] Comment on above: Performed By: #### 2 4323-8 ####MELISA Galvan ([id number])[facility] ()[address] [place] [address] Protein [Mass/Vol] 5.7 g/dL Low 5.9-7.9 [facility] Comment on above: Performed By: #### 2 4323-8 ####MELISA Galvan ([id number])[facility] ()[address] [place] [address] Sodium [Moles/Vol] 137 mmol/L Normal 133-145 [facility] Comment on above: Performed By: #### 2 4323-8 ####MELISA Galvan (62434)[facility] ()[address] [place] [place] [address] Urea nitrogen [Mass/Vol] 5 mg/dL Low 8-25 [facility] Comment on above: Performed By: #### 2 4323-8 ####MELISA Galvan (00150)[facility] ()[address] [place] [address] CBC panel Auto (Bld)on 03-17 Erythrocyte distribution width (RBC) [Ratio] 12.5 % 11.5 - 14.5 % [facility] Hematocrit (Bld) [Volume fraction] 34.9 % Low 36.0 - 46.0 % [facility] Hemoglobin (Bld) [Mass/Vol] 11.5 g/dL Low 12.0 - 16.0 g/dL [facility] Interpretation and review of laboratory results Abnormal [facility] MCH (RBC) [Entitic mass] 30.2 pg 26.0 - 34.0 pg [facility] MCHC (RBC) [Mass/Vol] 33.0 g/dL 32.0 - 36.0 g/dL [facility] MCV (RBC) [Entitic vol] 92 fL 80 - 100 fL [facility] Nucleated RBC/100 WBC (Bld) [Ratio] 0.0 % [facility] Platelets (Bld) [#/Vol] 268 10*3/uL [facility] RBC (Bld) [#/Vol] 3.81 10*6/uL Low [facility] WBC (Bld) [#/Vol] 5.0 10*3/uL [facility] Erythrocyte distribution width (RBC) [Ratio] 12.5 % Normal 11.5-14.5 [facility] Comment on above: Performed By: #### 5 8410-2 ####MELISA Galvan (45061)[facility] ()[address] [place] [address] Hematocrit (Bld) [Volume fraction] 34.9 % Low 36.0-46.0 [facility] Comment on above: Performed By: #### 5 8410-2 ####MELISA Galvan (23799)[facility] ()[address] [place] [address] Hemoglobin (Bld) [Mass/Vol] 11.5 g/dL Low 12.0-16.0 [facility] Comment on above: Performed By: #### 5 8410-2 ####MELISA Galvan (39073)[facility] ()[address] [place] [address] MCH (RBC) [Entitic mass] 30.2 pg Normal 26.0-34.0 [facility] Comment on above: Performed By: #### 5 8410-2 ####MELISA Galvan ([id number])[facility] ()[address] [place] [address] MCHC (RBC) [Mass/Vol] 33.0 g/dL Normal 32.0-36.0 [facility] Comment on above: Performed By: #### 5 8410-2 ####MELISA Galvan ([id number])[facility] ()[address] [place] [address] MCV (RBC) [Entitic vol] 92 fL Normal 80-100 [facility] Comment on above: Performed By: #### 5 8410-2 ####MELISA Galvan ([id number])[facility] ()[address] [place] [address] Nucleated RBC/100 WBC (Bld) [Ratio] 0.0 /100 WBCs Normal 0.0-0.0 [facility] Comment on above: Performed By: #### 5 8410-2 ####MELISA Galvan (26425)[facility] ()[address] [place] [address] Platelets (Bld) [#/Vol] 268 x10*3/uL Normal 150-450 [facility] Comment on above: Performed By: #### 5 8410-2 ####MELISA Galvan ([id number])[facility] ()[address] [place] [address] RBC (Bld) [#/Vol] 3.81 x10*6/uL Low 4.00-5.20 [facility] Comment on above: Performed By: #### 5 8410-2 ####MELISA Galvan (14577)[facility] ()[address] [place] [address] WBC (Bld) [#/Vol] 5.0 x10*3/uL Normal 4.4-11.3 [facility] Comment on above: Performed By: #### 5 8410-2 ####MELISA Galvan (71827)[facility] ()[address] [place] [address] Comprehensive metabolic 2000 panelon 03-17-2023 Albumin [Mass/Vol] 3.3 g/dL Low 3.5 - 5.0 g/dL [facility] ALP (Bld) [Catalytic activity/Vol] 61 U/L 35 - 125 U/L [facility] ALT [Catalytic activity/Vol] 17 U/L 5 - 40 U/L [facility] Anion gap [Moles/Vol] 10 mmol/L NINF - 19 mmol/L [facility] AST [Catalytic activity/Vol] 31 U/L 5 - 40 U/L [facility] Bilirubin [Mass/Vol] 0.2 mg/dL 0.1 - 1.2 mg/dL [facility] Calcium [Mass/Vol] 8.1 mg/dL Low 8.5 - 10.4 mg/dL [facility] Chloride [Moles/Vol] 112 mmol/L High 97 - 107 mmol/L [facility] CO2 [Moles/Vol] 21 mmol/L Low 24 - 31 mmol/L [facility] Creatinine [Mass/Vol] 0.80 mg/dL 0.40 - 1.60 mg/dL [facility] eGFR - PINF [facility] Comment on above: Calculations of jessica mated GFR are performed using the 2020 CKD-EPI Study Refit equation without the race variable for the IDMS-Traceable creatinine methods. https://jasn.asnjournals.org/content/early/ASN.28841575 88 Glucose [Mass/Vol] 122 mg/dL High 65 - 99 mg/dL [facility] Interpretation and review of laboratory results Abnormal [facility] Potassium [Moles/Vol] 4.3 mmol/L 3.4 - 5.1 mmol/L [facility] Protein [Mass/Vol] 5.7 g/dL Low 5.9 - 7.9 g/dL [facility] Sodium [Moles/Vol] 143 mmol/L 133 - 145 mmol/L [facility] Urea nitrogen [Mass/Vol] 5 mg/dL Low 8 - 25 mg/dL [facility] Albumin [Mass/Vol] 3.3 g/dL Low 3.5-5.0 [facility] Comment on above: Performed By: #### 2 4323-8 ####MELISA Galvan ([id number])[facility] ()[address] [place] [address] ALP (Bld) [Catalytic activity/Vol] 61 U/L Normal 35-125 [facility] Comment on above: Performed By: #### 2 4323-8 ####MELISA Galvan ([id number])[facility] ()[address] [address] ALT [Catalytic activity/Vol] 17 U/L Normal 5-40 [facility] Comment on above: Performed By: #### 2 4323-8 ####MELISA Galvan (77862)[facility] ()[address] [place] [address] Anion gap [Moles/Vol] 10 mmol/L Normal <=19 [facility] Comment on above: Performed By: #### 2 4323-8 ####MELISA Galvan ()[facility] ()[address] [place] [address] AST [Catalytic activity/Vol] 31 U/L Normal 5-40 [facility] Comment on above: Performed By: #### 2 432-8 ####MELISA Galvan ([id number])[facility] ()[address] [place] [address] Bilirubin [Mass/Vol] 0.2 mg/dL Normal 0.1-1.2 [facility] Comment on above: Performed By: #### 2 432-8 ####MELISA Galvan ([id number])[facility] ()[address] [place] [address] Calcium [Mass/Vol] 8.1 mg/dL Low 8.5-10.4 [facility] Comment on above: Performed By: #### 2 4323-8 ####MELISA Galvan ([id number])[facility] ()[address] [place] [address] Chloride [Moles/Vol] 112 mmol/L High 97-107 [facility] Comment on above: Performed By: #### 2 4323-8 ####MELISA Galvan ([id number])[facility] ()[address] [place] [address] CO2 [Moles/Vol] 21 mmol/L Low 24-31 [facility] Comment on above: Performed By: #### 2 4323-8 ####MELISA Galvan ([id number])[facility] ()[address] [place] [address] Creatinine [Mass/Vol] 0.80 mg/dL Normal 0.40-1.60 [facility] Comment on above: Performed By: #### 2 4323-8 ####MELISA Galvan (10447)[facility] ()[address] [place] [address] GFR/1.73 sq M.predicted MDRD (S/P/Bld) [Vol rate/Area] mL/min/{1.73_m2} Normal >60 [facility] Comment on above: Result Comment: Calc ulations of estimated GFR are performed using the 2020 CKD-EPI Study Refit equation without the race variable for the IDMS-Traceable creatinine methods. https://jasn.asnjournals.org/content/early//ASN.05751337 88 Performed By: #### 2 4323-8 ####MELISA Galvan (21914)[facility] ()[address] [place] [address] Glucose [Mass/Vol] 122 mg/dL High 65-99 [facility] Comment on above: Performed By: #### 2 4323-8 ####MELISA Galvan ([id number])[facility] ()[address] [place] [address] Potassium [Moles/Vol] 4.3 mmol/L Normal 3.4-5.1 [facility] Comment on above: Performed By: #### 2 4323-8 ####MELISA Galvan ([id number])[facility] ()[address] [place] [address] Protein [Mass/Vol] 5.7 g/dL Low 5.9-7.9 [facility] Comment on above: Performed By: #### 2 4323-8 ####MELISA Galvan (71760)[facility] ()[address] [place] [address] Sodium [Moles/Vol] 143 mmol/L Normal 133-145 [facility] Comment on above: Performed By: #### 2 4323-8 ####MELISA POOLESarwat Galvan (54341)[facility] ()[address] [facility] [place] [facility] [place] [address] Urea nitrogen [Mass/Vol] 5 mg/dL Low 8-25 [facility] Comment on above: Performed By: #### 2 4323-8 ####MELISA POOLESarwat Galvan ([id number])[facility] ()[address] [place] [address] FL UPPER GI W DOUBLE CONTRAS T W SMALL BOWEL FOLLOW THROUGHon 03-17-2023 FL UPPER GI W DOUBLE CONTRAST W SMALL BOWEL FOLLOW THROUGH Interpreted By: Corie Garza, ADDENDUM: The exam was a single contrast upper GI with small-bowel follow-through Signed by: Corie Garza 04/01/2023 12:58 PM -------- ORIGINAL REPORT -------- Dictation workstation: [id number] Interpreted By: Corie Garza, STUDY: FL UPPER GI W DOUBLE CONTRAST W SMALL BOWEL FOLLOW THROUGH; 03/17/2023 4:40 pm INDICATION: Signs/Symptoms:abdo kerry pain. COMPARISON: None. ACCESSION NUMBER(S): [id number] ORDERING CLINICIAN: TIFFANIE MENDEZ TECHNIQUE: Multiple fluoroscopic spot images were obtained during a single contrast upper GI with KUB. 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 No evidence for obstruction.. MACRO: none Signed by: Corie Garza 03/17/2023 5:00 PM Dictation workstation: [id number] MMODAL Interpreted By: Corie Garza, STUDY: FL UPPER GI W DOUBLE CONTRAST W SMALL BOWEL FOLLOW THROUGH; 03/17/2023 4:40 pm INDICATION: Signs/Symptoms:abdo kerry pain. COMPARISON: None. ACCESSION NUMBER(S): [id number] ORDERING CLINICIAN: TIFFANIE MENDEZ TECHNIQUE: Multiple fluoroscopic spot images were obtained during a single contrast upper GI with KUB. Total fluoroscopy time: 1 minute 32 seconds Radiation exposure (Reference Air Kerma): 99.36 mGy Images: 2 spot images 7 series and 2 delayed AP views of the abdomen FINDINGS: Comfort Station Attendant images demonstrate postsurgical changes from previous Tan-en-Y [...] Signs/Symptoms:abdo kerry pain. COMPARISON: None. ACCESSION NUMBER(S): [id number] ORDERING CLINICIAN: TIFFANIE MENDEZ TECHNIQUE: Multiple fluoroscopic spot images were obtained during a single contrast upper GI with KUB. Total fluoroscopy time: 1 minute 32 seconds Radiation exposure (Reference Air Kerma): 99.36 mGy Images: 2 spot images 7 series and 2 delayed AP views of the abdomen FINDINGS: Comfort Station Attendant images demonstrate postsurgical changes from previous Tan-en-Y [...] Corie Garza 03/17/2023 5:00 PM Dictation workstation: [id number] [facility] Work Phone: [facility] Work Phone: Radiology Study observation (narrative) [facility] Work Phone: XR CHEST 1 VIEWon 03-17-2023 XR CHEST 1 VIEW Interpreted By: Nya Ahmadi, STUDY: XR CHEST 1 VIEW 03/17/2023 7:09 pm INDICATION: Signs/Symptoms:S/p NG placement COMPARISON: 03/17/2023 done at 2:05 p.m. ACCESSION NUMBER(S): [id number] ORDERING CLINICIAN: TIFFANIE MENDEZ TECHNIQUE: AP erect view of the chest FINDINGS: The nasogastric tube has not changed in placement with the tip seen within the proximal thoracic esophagus. Heart and mediastinum are normally visualized. Lungs are clear. IMPRESSION: Distal tip of nasogastric tube in proximal thoracic esophagus just above the aortic arch. Signed by: Nya Ahmadi 03/17/2023 8:19 PM Dictation workstation: [id number] [facility] XR CHEST 1 VIEW Interpreted By: Corie Garza, STUDY: XR CHEST 1 VIEW; 03/17/2023 12:41 pm INDICATION: Signs/Symptoms:Stat us post NG tube placement. COMPARISON: None available ACCESSION NUMBER(S): [id number] ORDERING CLINICIAN: TIFFANIE MENDEZ FINDINGS: RESULT: Nasogastric [...] Corie Garza 03/17/2023 4:19 PM Dictation workstation: [id number] [facility] XR Chest Single viewon 03-17 Distal tip of nasogastric tube in proximal thoracic esophagus just above the aortic arch. Signed by: Nya Ahmadi 03/17/2023 8:19 PM Dictation workstation: [id number] [facility] Interpreted By: Nya Ahmadi, STUDY: XR CHEST 1 VIEW 03/17/2023 7:09 pm INDICATION: Signs/Symptoms:S/p NG placement COMPARISON: 03/17/2023 done at 2:05 p.m. ACCESSION NUMBER(S): [id number] ORDERING CLINICIAN: TIFFANIE MENDEZ TECHNIQUE: AP erect [...] 03/17/2023 done at 2:05 p.m. ACCESSION NUMBER(S): [id number] ORDERING CLINICIAN: TIFFANIE MENDEZ TECHNIQUE: AP erect view of the chest FINDINGS: The nasogastric tube has not changed in placement with the tip seen within the proximal thoracic esophagus. Heart and mediastinum are normally visualized. Lungs are clear. IMPRESSION: Distal tip of nasogastric tube in proximal thoracic esophagus just above the aortic arch. Signed by: Nya Ahmadi 03/17/2023 8:19 PM Dictation workstation: [id number] [facility] Work Phone: Radiology Study observation (narrative) [facility] Work Phone: Nasogastric tube tip is noted at the level of the upper esophagus at the level of the clavicular heads. The nasogastric tube removed itself from the patient soon after this exam. Signed by: Corie Garza 03/17/2023 4:19 PM Dictation workstation: [id number] [facility] Interpreted By: Corie Garza, STUDY: XR CHEST 1 VIEW; 03/17/2023 12:41 pm INDICATION: Signs/Symptoms:Stat us post NG tube placement. COMPARISON: None available ACCESSION NUMBER(S): [id number] ORDERING CLINICIAN: TIFFANIE MENDEZ FINDINGS: RESULT: Nasogastric [...] tube placement. COMPARISON: None available ACCESSION NUMBER(S): [id number] ORDERING CLINICIAN: TIFFANIE MENDEZ FINDINGS: RESULT: Nasogastric [...] Corie Garza 03/17/2023 4:19 PM Dictation workstation: [id number] [facility] Work Phone: [facility] Work Phone: Radiology Study observation (narrative) [facility] Work Phone: XR Chest Single viewOrdered By: Nya Ahmadi on 03-17-2023 [facility] Work Phone: BMPon 03-16-2023 Anion gap [Moles/Vol] 11 mmol/L Normal 6-16 [facility] Comment on above: Performed By: #### 2 934120, 23076856, 4311176, 8326535, 7290371, 5100047 ####[facility] [address] [place] [address] BUN/Creat Ratio 10 No Units Normal 10-20 [facility] Comment on above: Performed By: #### 2 353021, 03573661, 7801061, 5199819, 3624201, 8894688 ####[facility] [address] [place] [address] Calcium [Mass/Vol] 8.5 mg/dL Low 8.9-11.1 [facility] Comment on above: Performed By: #### 2 463343, 65460426, 8489335, 6787254, 0320537, 3128120 ####[facility] [address] [place] [address] Chloride [Moles/Vol] 109 mmol/L Normal 101-111 [facility] Comment on above: Performed By: #### 2 311300, 60656834, 5297970, 3447394, 3032121, 4014307 ####[facility] [address] [place] [address] CO2 [Moles/Vol] 24 mmol/L Normal 21-31 [facility] Comment on above: Performed By: #### 2 017282, 63441827, 1061776, 3493966, 3488556, 0186847 ####[facility] [address] [place] [address] Creatinine [Mass/Vol] 0.8 mg/dL Normal 0.5-1.3 [facility] Comment on above: Performed By: #### 2 502667, 84807893, 1459148, 6293722, 0027324, 8042335 ####[facility] [address] [place] [address] Glucose [Mass/Vol] 77 mg/dL Normal 55-199 [facility] Comment on above: Performed By: #### 2 919786, 27318561, 3577684, 3662761, 1307901, 4800467 ####[facility] [address] [place] [address] Potassium [Moles/Vol] 3.7 mmol/L Normal 3.5-5.3 [facility] Comment on above: Performed By: #### 2 901834, 89471092, 1969205, 8388098, 0654782, 8171353 ####[facility] [address] [place] [address] Sodium [Moles/Vol] 140 mmol/L Normal 135-145 [facility] Comment on above: Performed By: #### 2 438297, 70978798, 2217961, 5561500, 7200393, 7048044 ####[facility] [address] [place] [address] Urea nitrogen [Mass/Vol] 8 mg/dL Normal 5-21 [facility] Comment on above: Performed By: #### 2 028246, 95598882, 0377119, 3872708, 7279890, 2135196 ####[facility] [address] [place] [address] CBC W Auto Differential pane l (Bld)on 03-16-2023 Basophils (Bld) [#/Vol] 0.07 10*3/uL [facility] Basophils/100 WBC (Bld) 1.4 % 0.0 - 2.0 % [facility] Eosinophils (Bld) [#/Vol] 0.50 10*3/uL [facility] Eosinophils/100 WBC (Bld) 9.9 % 0.0 - 6.0 % [facility] Erythrocyte distribution width (RBC) [Ratio] 12.3 % 11.5 - 14.5 % [facility] Hematocrit (Bld) [Volume fraction] 33.4 % Low 36.0 - 46.0 % [facility] Hemoglobin (Bld) [Mass/Vol] 10.8 g/dL Low 12.0 - 16.0 g/dL [facility] Immature granulocytes (Bld) [#/Vol] 0.01 10*3/uL [facility] Immature granulocytes/100 WBC (Bld) 0.2 % 0.0 - 0.9 % [facility] Comment on above: Immature Granulocyte Count (IG) includes promyelocytes, myelocytes and metamyelocytes but does not include bands. Percent differential counts (%) should be interpreted in the context of the absolute cell counts (cells/UL). Interpretation and review of laboratory results Abnormal [facility] Lymphocytes (Bld) [#/Vol] 1.70 10*3/uL [facility] Lymphocytes/100 WBC (Bld) 33.7 % 13.0 - 44.0 % [facility] MCH (RBC) [Entitic mass] 30.5 pg 26.0 - 34.0 pg [facility] MCHC (RBC) [Mass/Vol] 32.3 g/dL 32.0 - 36.0 g/dL [facility] MCV (RBC) [Entitic vol] 94 fL 80 - 100 fL [facility] Monocytes (Bld) [#/Vol] 0.31 10*3/uL [facility] Monocytes/100 WBC (Bld) 6.2 % 2.0 - 10.0 % [facility] Neutrophils (Bld) [#/Vol] 2.45 10*3/uL [facility] Comment on above: Percent differential counts (%) should be interpreted in the context of the absolute cell counts (cells/uL). Neutrophils/100 WBC (Bld) 48.6 % 40.0 - 80.0 % [facility] Nucleated RBC/100 WBC (Bld) [Ratio] 0.0 % [facility] Platelets (Bld) [#/Vol] 273 10*3/uL [facility] RBC (Bld) [#/Vol] 3.54 10*6/uL [facility] WBC (Bld) [#/Vol] 5.0 10*3/uL [facility] Basophils (Bld) [#/Vol] 0.07 x10*3/uL Normal 0.00-0.10 [facility] Comment on above: Performed By: #### 5 7021-8 ####MELISA Galvan (87804)[facility] ()[address] [place] [address] Basophils/100 WBC (Bld) 1.4 % Normal 0.0-2.0 [facility] Comment on above: Performed By: #### 5 7021-8 ###BARBARA Galvan (12723)[facility] ()[address] [place] [address] Eosinophils (Bld) [#/Vol] 0.50 x10*3/uL Normal 0.00-0.70 [facility] Comment on above: Performed By: #### 5 7021-8 ####MELISA Galvan (62528)[facility] ()[address] [place] [address] Eosinophils/100 WBC (Bld) 9.9 % Normal 0.0-6.0 [facility] Comment on above: Performed By: #### 5 7021-8 ####MELISA Galvan ([id number])[facility] ()[address] [place] [address] Erythrocyte distribution width (RBC) [Ratio] 12.3 % Normal 11.5-14.5 [facility] Comment on above: Performed By: #### 5 7021-8 ####MELISA Galvan ([id number])[facility] ()[address] [place] [address] Hematocrit (Bld) [Volume fraction] 33.4 % Low 36.0-46.0 [facility] Comment on above: Performed By: #### 5 7021-8 ####MELISA Galvan ([id number])[facility] ()[address] [place] [address] Hemoglobin (Bld) [Mass/Vol] 10.8 g/dL Low 12.0-16.0 [facility] Comment on above: Performed By: #### 5 7021-8 ####MELISA Galvan ([id number])[facility] ()[address] [place] [address] Immature granulocytes (Bld) [#/Vol] 0.01 x10*3/uL Normal 0.00-0.70 [facility] Comment on above: Performed By: #### 5 7021-8 ####MELISA Galvan ([id number])[facility] ()[address] [place] [address] Immature granulocytes/100 WBC (Bld) 0.2 % Normal 0.0-0.9 [facility] Comment on above: Result Comment: Janny ture Granulocyte Count (IG) includes promyelocytes, myelocytes and metamyelocytes but does not include bands. Percent differential counts (%) should be interpreted in the context of the absolute cell counts (cells/UL). Performed By: #### 5 7021-8 ####MELISA Galvan ([id number])[facility] ()[address] [place] [address] Lymphocytes (Bld) [#/Vol] 1.70 x10*3/uL Normal 1.20-4.80 [facility] Comment on above: Performed By: #### 5 7021-8 ####MELISA Galvan ([id number])[facility] ()[address] [place] [address] Lymphocytes/100 WBC (Bld) 33.7 % Normal 13.0-44.0 [facility] Comment on above: Performed By: #### 5 7021-8 ####MELISA Galvan ([id number])[facility] ()[address] [place] [address] MCH (RBC) [Entitic mass] 30.5 pg Normal 26.0-34.0 [facility] Comment on above: Performed By: #### 5 7021-8 ####MELISA Galvan ([id number])[facility] ()[address] [place] [address] MCHC (RBC) [Mass/Vol] 32.3 g/dL Normal 32.0-36.0 [facility] Comment on above: Performed By: #### 5 7021-8 ####MELISA Galvan ([id number])[facility] ()[address] [place] [address] MCV (RBC) [Entitic vol] 94 fL Normal 80-100 [facility] Comment on above: Performed By: #### 5 7021-8 ####MELISA Galvan ([id number])[facility] ()[address] [place] [address] Monocytes (Bld) [#/Vol] 0.31 x10*3/uL Normal 0.10-1.00 [facility] Comment on above: Performed By: #### 5 7021-8 ####MELISA Galvan ([id number])[facility] ()[address] [place] [address] Monocytes/100 WBC (Bld) 6.2 % Normal 2.0-10.0 [facility] Comment on above: Performed By: #### 5 7021-8 ####MELISA Galvan ([id number])[facility] ()[address] [place] [address] Neutrophils (Bld) [#/Vol] 2.45 x10*3/uL Normal 1.20-7.70 [facility] Comment on above: Result Comment: Perc ent differential counts (%) should be interpreted in the context of the absolute cell counts (cells/uL). Performed By: #### 5 7021-8 ####MELISA Galvan ([id number])[facility] ()[address] [place] [address] Neutrophils/100 WBC (Bld) 48.6 % Normal 40.0-80.0 [facility] Comment on above: Performed By: #### 5 7021-8 ####MELISA Galvan ([id number])[facility] ()[address] [place] [address] Nucleated RBC/100 WBC (Bld) [Ratio] 0.0 /100 WBCs Normal 0.0-0.0 [facility] Comment on above: Performed By: #### 5 7021-8 ####MELISA Galvan ([id number])[facility] ()[address] [place] [address] Platelets (Bld) [#/Vol] 273 x10*3/uL Normal 150-450 [facility] Comment on above: Performed By: #### 5 7021-8 ####MELISA Galvan ([id number])[facility] ()[address] [place] [address] RBC (Bld) [#/Vol] 3.54 x10*6/uL Low 4.00-5.20 [facility] Comment on above: Performed By: #### 5 7021-8 ####MELISA ALEXANDRO Galvan ([id number])[facility] ()[address] [place] [address] WBC (Bld) [#/Vol] 5.0 x10*3/uL Normal 4.4-11.3 [facility] Comment on above: Performed By: #### 5 7021-8 ####MELISA Galvan ([id number])[facility] ()[address] [place] [address] CBC w/ Auto Diffon 4 Basophil Absolute 0.1 E9/L Normal 0.0-0.2 [facility] Comment on above: Performed By: #### 2 938486, 44195608, 4883231, 1057233, 3683894, 7278355 ####[facility] [address] [place] [address] Basophils/100 WBC (Bld) 2.3 % High 0.0-2.0 [facility] Comment on above: Performed By: #### 2 367690, 78039010, 1281713, 8998129, 7426581, 0480979 ####[facility] [address] [place] [address] Eos Absolute 0.5 E9/L Normal 0.0-0.5 [facility] Comment on above: Performed By: #### 2 814939, 77444361, 4540165, 0714772, 9797936, 7390118 ####[facility] [address] [place] [address] Eosinophils/100 WBC (Bld) 10.3 % High 0.0-8.0 [facility] Comment on above: Performed By: #### 2 790597, 91971086, 3594654, 7581170, 3683257, 8381388 ####[facility] [address] [place] [address] Erythrocyte distribution width (RBC) [Ratio] 13.2 % Normal 10.9-14.2 [facility] Comment on above: Performed By: #### 2 679575, 24565627, 3251713, 1934123, 6150765, 5809548 ####[facility] [address] [place] [address] Hematocrit (Bld) [Volume fraction] 38.0 % Normal 34.0-46.0 [facility] Comment on above: Performed By: #### 2 548043, 67910063, 5578547, 1579238, 4040741, 1144916 ####[facility] [address] [place] [address] Hemoglobin (Bld) [Mass/Vol] 12.5 g/dL Normal 12.0-16.0 [facility] Comment on above: Performed By: #### 2 671576, 89431513, 3571189, 2381772, 9274359, 6914933 ####[address] [address] Lymph Absolute 1.5 E9/L Normal 1.0-4.0 [facility] Comment on above: Performed By: #### 2 346889, 71131820, 0384070, 1705681, 6428419, 9755751 ####[address] [address] Lymphocytes/100 WBC (Bld) 32.0 % Normal 14.0-50.0 [facility] Comment on above: Performed By: #### 2 263655, 55707517, 6707281, 7641316, 2481467, 0778655 ####[facility] [address] [place] [address] MCH (RBC) [Entitic mass] 29.7 pg Normal 27.0-34.0 [facility] Comment on above: Performed By: #### 2 957082, 29361485, 6046423, 8902595, 1971026, 2747739 ####[address] [address] MCHC (RBC) [Mass/Vol] 33.0 g/dL Normal 31.4-36.0 [facility] Comment on above: Performed By: #### 2 161359, 03164517, 7107764, 0729922, 8012253, 4270953 ####[facility] [address] [place] [address] MCV (RBC) [Entitic vol] 89.8 fL Normal 80.0-100.0 [facility] Comment on above: Performed By: #### 2 491844, 09986733, 9768473, 7991034, 4743095, 7153940 ####[facility] [address] [place] [address] [place] Absolute 0.3 E9/L Normal 0.2-1.0 [facility] Comment on above: Performed By: #### 2 248777, 34932322, 0022329, 5994808, 7675523, 3161297 ####[address] [address] Monocytes/100 WBC (Bld) 6.4 % Normal 4.0-14.0 [facility] Comment on above: Performed By: #### 2 805140, 47311633, 9934315, 0106289, 7458936, 4064802 ####[facility] [address] [place] [address] Neutro Absolute 2.3 E9/L Normal 2.0-7.5 [facility] Comment on above: Performed By: #### 2 697179, 84297634, 0390910, 0727233, 1413314, 4580163 ####[facility] [address] [place] [address] Neutro Auto 49.0 % Normal 36.0-75.0 [facility] Comment on above: Performed By: #### 2 195037, 66244828, 8692734, 4418595, 7998561, 1412365 ####[facility] [address] [place] [address] Platelet 313.0 E9/L Normal 150.0-500.0 [facility] Comment on above: Performed By: #### 2 466345, 70760884, 2182093, 8442093, 2581735, 3465364 ####[facility] [address] [place] [address] Platelet mean volume (Bld) [Entitic vol] 8.7 fL Normal 6.4-10.8 [facility] Comment on above: Performed By: #### 2 949824, 35435028, 5475575, 1122645, 3245011, 0255719 ####[facility] [address] [place] [address] RBC 4.2 E12/L Low 4.3-5.9 [facility] Comment on above: Performed By: #### 2 477608, 50925028, 2818320, 8375427, 4214673, 3236345 ####[facility] [address] [place] [address] WBC 4.8 E9/L Normal 4.0-11.0 [facility] Comment on above: Performed By: #### 2 794341, 21404149, 2679050, 2201244, 1794581, 9241242 ####[facility] [address] [place] [address] CHEMISTRYOrdered By: SYSTEM SYSTEM on 03-16-2023 Albumin [...] and IV contrast. COMPARISON: None.. ACCESSION NUMBER(S): [id number] ORDERING CLINICIAN: TIFFANIE MENDEZ TECHNIQUE: Oral contrast [...] Corie Garza 03/16/2023 5:46 PM Dictation workstation: [id number] [facility] CT Abdomen and Pelvis W cont rast Brenden 03-16-2023 Patchy ground-glass densities in the bilateral lung bases may represent atelectasis. Multiple cystic lesions scattered throughout both lobes of the liver. Postsurgical changes of Tan-en-Y gastric bypass. MACRO: none Signed by: Corie Garza 03/16/2023 5:46 PM Dictation workstation: [id number] Interpreted By: Corie Garza, STUDY: CT ABDOMEN PELVIS W IV CONTRAST; 03/16/2023 5:27 pm INDICATION: Signs/Symptoms:abdo kerry pain - with oral and IV contrast. COMPARISON: None.. ACCESSION NUMBER(S): [id number] ORDERING CLINICIAN: TIFFANIE MENDEZ TECHNIQUE: Oral contrast [...] and IV contrast. COMPARISON: None.. ACCESSION NUMBER(S): [id number] ORDERING CLINICIAN: TIFFANIE MENDEZ TECHNIQUE: Oral contrast [...] Corie Garza 03/16/2023 5:46 PM Dictation workstation: [id number] [facility] Work Phone: Radiology Study observation (narrative) [facility] Work Phone: CT Abdomen and Pelvis W cont rast IVOrdered By: Corie Garza on 03-16-2023 [facility] Work Phone: Comprehensive metabolic 2000 panelon 03-16-2023 Albumin [Mass/Vol] 3.0 g/dL Low 3.5 - 5.0 g/dL Un [facility] ALP (Bld) [Catalytic activity/Vol] 58 U/L 35 - 125 U/L [facility] ALT [Catalytic activity/Vol] 13 U/L 5 - 40 U/L [facility] Anion gap [Moles/Vol] 10 mmol/L NINF - 19 mmol/L [facility] AST [Catalytic activity/Vol] 32 U/L 5 - 40 U/L [facility] Bilirubin [Mass/Vol] mg/dL 0.1 - 1.2 mg/dL [facility] Calcium [Mass/Vol] 7.9 mg/dL Low 8.5 - 10.4 mg/dL [facility] Chloride [Moles/Vol] 110 mmol/L High 97 - 107 mmol/L [facility] CO2 [Moles/Vol] 21 mmol/L Low 24 - 31 mmol/L [facility] Creatinine [Mass/Vol] 0.80 mg/dL 0.40 - 1.60 mg/dL [facility] eGFR - PINF [facility] Comment on above: Calculations of jessica mated GFR are performed using the 2020 CKD-EPI Study Refit equation without the race variable for the IDMS-Traceable creatinine methods. https://jasn.asnjournals.org/content//ASN.89342639 88 Glucose [Mass/Vol] 82 mg/dL 65 - 99 mg/dL [facility] Interpretation and review of laboratory results Abnormal [facility] Potassium [Moles/Vol] 3.7 mmol/L 3.4 - 5.1 mmol/L [facility] Protein [Mass/Vol] 5.5 g/dL Low 5.9 - 7.9 g/dL Un [facility] Sodium [Moles/Vol] 141 mmol/L 133 - 145 mmol/L [facility] Urea nitrogen [Mass/Vol] 8 mg/dL 8 - 25 mg/dL [facility] Albumin [Mass/Vol] 3.0 g/dL Low 3.5-5.0 [facility] Comment on above: Performed By: #### 2 4323-8 ####MELISA Galvan ([id number])[facility] ()[address] [place] [address] ALP (Bld) [Catalytic activity/Vol] 58 U/L Normal 35-125 [facility] Comment on above: Performed By: #### 2 4323-8 ####MELISA Galvan ([id number])[facility] ()[address] [place] [address] ALT [Catalytic activity/Vol] 13 U/L Normal 5-40 [facility] Comment on above: Performed By: #### 2 4323-8 ####MELISA Galvan (59394)[facility] ()[address] [place] [address] Anion gap [Moles/Vol] 10 mmol/L Normal <=19 [facility] Comment on above: Performed By: #### 2 4323-8 ####MELISA Galvan (30258)[facility] ()[address] [place] [address] AST [Catalytic activity/Vol] 32 U/L Normal 5-40 [facility] Comment on above: Performed By: #### 2 4323-8 ####MELISA Galvan (05712)[facility] ()[address] [place] [address] Bilirubin [Mass/Vol] mg/dL Normal 0.1-1.2 [facility] Comment on above: Performed By: #### 2 4323-8 ####MELISA Galvan (90794)[facility] ()[address] [place] [address] Calcium [Mass/Vol] 7.9 mg/dL Low 8.5-10.4 [facility] Comment on above: Performed By: #### 2 4323-8 ####MELISA Galvan (99282)[facility] ()[address] [place] [address] Chloride [Moles/Vol] 110 mmol/L High 97-107 [facility] Comment on above: Performed By: #### 2 4323-8 ####MELISA Galvan (00552)[facility] ()[address] [place] [address] CO2 [Moles/Vol] 21 mmol/L Low 24-31 [facility] Comment on above: Performed By: #### 2 4323-8 ####MELISA Galvan (74135)[facility] ()[address] [place] [address] Creatinine [Mass/Vol] 0.80 mg/dL Normal 0.40-1.60 [facility] Comment on above: Performed By: #### 2 4323-8 ####MELISA Galvan (15558)[facility] ()[address] [place] [address] GFR/1.73 sq M.predicted MDRD (S/P/Bld) [Vol rate/Area] mL/min/{1.73_m2} Normal >60 [facility] Comment on above: Result Comment: Calc ulations of estimated GFR are performed using the 2020 CKD-EPI Study Refit equation without the race variable for the IDMS-Traceable creatinine methods. https://jasn.asnjournals.org/content//ASN.24225487 88 Performed By: #### 2 4323-8 ####MELISA Galvan (18154)[facility] ()[address] [place] [address] Glucose [Mass/Vol] 82 mg/dL Normal 65-99 [facility] Comment on above: Performed By: #### 2 4323-8 ####MELISA Galvan ([id number])[facility] ()[address] [place] [address] Potassium [Moles/Vol] 3.7 mmol/L Normal 3.4-5.1 [facility] Comment on above: Performed By: #### 2 4323-8 ####MELISA Galvan (05999)[facility] ()[address] [place] [address] Protein [Mass/Vol] 5.5 g/dL Low 5.9-7.9 [facility] Comment on above: Performed By: #### 2 4323-8 ####MELISA Galvan (30994)[facility] ()[address] [place] [address] Sodium [Moles/Vol] 141 mmol/L Normal 133-145 [facility] Comment on above: Performed By: #### 2 4323-8 ####MELISA Galvan (79698)[facility] ()[address] [place] [address] Urea nitrogen [Mass/Vol] 8 mg/dL Normal 8-25 [facility] Comment on above: Performed By: #### 2 4323-8 ####MELISA Galvan (95955)[facility] ()[address] [place] [address] Consent for Treatmenton 02-17 Consent for Treatment [id number] 972#1.00TIFF Normal [facility] Discharge Instructionson Discharge Instructions [id number] 21#1.00TIFF Normal [facility] Comment on above: Other Comment: wrong folder ED Clinical Summaryon 2023 ED Clinical Summary Normal [facility] ED Note-Nursingon 03-16-2023 ED Note-Nursing called report to Thu PRICE, . Normal [facility] ED Note-Physicianon 03-16-19 ED Note-Physician Normal [facility] Comment on above: Result Comment: Elec tronically Signed By: Earnest Jett DO\.br\Date and Time Signed: 03/16/23 11:17 EST ED Patient Education Noteon 03-16-2023 ED Patient Education Note Normal [facility] ED Patient Summaryon 024 ED Patient Summary Normal [facility] HEMATOLOGYOrdered By: SYSTEM SYSTEM on 03-16-2023 Basophil [...] Normal 80.0 - 100.0 fL Remisol Heme [place] Absolute 0.3 E9/L Normal 0.2 - 1.0 [...] 03-16-2023 Albumin [Mass/Vol] 3.8 g/dL Normal 3.3-5.0 [facility] Comment on above: Performed By: #### 2 073691, 59552872, 3477977, 6053290, 6038308, 9314786 ####[facility] [address] [place] [address] Albumin/Globulin [Mass ratio] 1.5 {ratio} Normal 1.1-2.2 [facility] Comment on above: Performed By: #### 2 793453, 80046239, 1545325, 4076676, 9099258, 5203484 ####[facility] [address] [place] [address] Alk Phos 62 Int._Unit/L Normal 21-98 [facility] Comment on above: Performed By: #### 2 398627, 68705735, 7685477, 0716073, 9171640, 3666045 ####[facility] [address] [place] [address] ALT 21 Int._Unit/L Normal 6-46 [facility] Comment on above: Performed By: #### 2 751662, 71199374, 7404580, 8033481, 8374863, 7787817 ####[facility] [address] [place] [address] AST 37 Int._Unit/L Normal 5-43 [facility] Comment on above: Performed By: #### 2 263411, 88389509, 1237478, 1038659, 8624946, 4204432 ####[facility] [address] [place] [address] Bili Direct 0.1 mg/dL Normal 0.0-0.4 [facility] Comment on above: Performed By: #### 2 965858, 26064194, 4826340, 9792221, 5998608, 9403968 ####[facility] [address] [place] [address] Bili Indirect 0.2 mg/dL Normal 0.1-0.9 [facility] Comment on above: Performed By: #### 2 263004, 53499561, 2711608, 2240477, 6844319, 5115413 ####[facility] [address] [place] [address] Bili Total 0.3 mg/dL Normal 0.0-1.1 [facility] Comment on above: Performed By: #### 2 418903, 23294920, 9655162, 8124801, 5587907, 6917999 ####[facility] [address] [place] [address] Globulin (S) [Mass/Vol] 2.6 g/dL Normal 1.4-4.0 [facility] Comment on above: Performed By: #### 2 185531, 89534882, 1043435, 8962031, 3522707, 6457962 ####[facility] [address] [place] [address] Protein [Mass/Vol] 6.4 g/dL Normal 6.0-7.8 [facility] Comment on above: Performed By: #### 2 074030, 27614203, 8738472, 2691904, 3739486, 5180267 ####[facility] [address] [place] [address] Influenza virus A and B and SARS-CoV-2 (COVID-19) identified HANK+probe Nom (Resp)on 03-16-2023 FLUAV RNA HANK+probe Ql (Resp) Not detected Not Detected [facility] FLUBV RNA HANK+probe Ql (Resp) Not detected Not Detected [facility] Interpretation and review of laboratory results Normal [facility] SARS-CoV-2 (COVID-19) RNA HANK+probe Ql (Resp) Not detected Not Detected [facility] This assay has received [facility] Emergency Use Authorization (EUA) and is only [...] and has been validated for use at [facility]. Negative results do not preclude COVID-19 infections or Influenza A/B infections, and should not be used as the sole basis for diagnosis, treatment, or other management decisions. If Influenza A/B and RSV PCR results are negative, testing for Parainfluenza virus, Adenovirus and Metapneumovirus is routinely performed for [facility] pediatric oncology and intensive care inpatients, and is available on other patients by placing an add-on request. [facility] FLUAV RNA HANK+probe Ql (Resp) Not detected Normal Not Detected [facility] Comment on above: Order Comment: This [...] and has been validated for use at [facility]. Negative results do not preclude COVID-19 infections or Influenza A/B infections, and should not be used as the sole basis for diagnosis, treatment, or other management decisions. If Influenza A/B and RSV PCR results are negative, testing for Parainfluenza virus, Adenovirus and Metapneumovirus is routinely performed for [facility] pediatric oncology and intensive care inpatients, and is available on other patients by placing an add-on request. Performed By: #### 5 2969-3 #### ALON Johnson ([id number]) [facility] ([facility]) [address] [place] [address] FLUBV RNA HANK+probe Ql (Resp) Not detected Normal Not Detected [facility] Comment on above: Order Comment: This [...] and has been validated for use at [facility]. Negative results do not preclude COVID-19 infections or Influenza A/B infections, and should not be used as the sole basis for diagnosis, treatment, or other management decisions. If Influenza A/B and RSV PCR results are negative, testing for Parainfluenza virus, Adenovirus and Metapneumovirus is routinely performed for [facility] pediatric oncology and intensive care inpatients, and is available on other patients by placing an add-on request. Performed By: #### 5 2969-3 #### ALON Johnson ([id number]) [facility] ([facility]) [address] [place] [address] SARS-CoV-2 (COVID-19) RNA HANK+probe Ql (Resp) Not detected Normal Not Detected [facility] Comment on above: Order Comment: This [...] and has been validated for use at [facility]. Negative results do not preclude COVID-19 infections or Influenza A/B infections, and should not be used as the sole basis for diagnosis, treatment, or other management decisions. If Influenza A/B and RSV PCR results are negative, testing for Parainfluenza virus, Adenovirus and Metapneumovirus is routinely performed for [facility] pediatric oncology and intensive care inpatients, and is available on other patients by placing an add-on request. Performed By: #### 5 2969-3 #### ALON Johnson ([id number]) [facility] ([facility]) [address] [place] [address] Lactic Acidon 03-16-2023 Lactic Acid Lvl 0.6 mmol/L Normal 0.5-2.2 [facility] Comment on above: Performed By: #### 2 131321, 09088133, 9428996, 8244397, 8920952, 5744902 ####[facility] [address] [place] [address] Lipase Levelon 03-16-2023 Lipase Lvl 95 unit/L High 13-58 [facility] Comment on above: Performed By: #### 2 406434, 96389471, 0157032, 8706108, 3348414, 4590303 ####[facility] [address] [place] [address] Pre-Arrival Noteon 4 Pre-Arrival Note Normal [facility] Transfer Documentson 024 Transfer Documents [id number] 04#1.00TIFF Normal [facility] eGFRon 03-16-2023 eGFR 99 mL/min/1.73 m2 Normal >=59 [facility] Comment on above: Order Comment: Order added by Discern Expert. Performed By: #### 2 795192, 84567286, 4695499, 4989839, 3387563, 0563947 ####[facility] [address] [place] [address] BB Draw & Holdon 03-15-2023 BB D&H Sample drawn for Blood Ba Normal [facility] Comment on above: Performed By: #### 2 755330, 29367162, 61382771, 1175409, 9211867, 1901044, 30618033, 7879964, 96362573 ####[facility] [address] [place] [address] BMPon 03-15-2023 Anion gap [Moles/Vol] 12 mmol/L Normal 6-16 [facility] Comment on above: Performed By: #### 2 175235, 28759554, 02349917, 4279831, 1239501, 6602782, 80462979, 5532824, 12518341 ####[facility] [address] [place] [address] BUN/Creat Ratio 10 No Units Normal 10-20 [facility] Comment on above: Performed By: #### 2 783011, 30548681, 39290529, 4386547, 8913475, 5929526, 14394657, 6530655, 07339728 ####[facility] [address] [place] [address] Calcium [Mass/Vol] 8.5 mg/dL Low 8.9-11.1 [facility] Comment on above: Performed By: #### 2 992899, 07165330, 44032716, 0675932, 7943326, 0904474, 37422967, 4145737, 12931521 ####[facility] [address] [place] [address] Chloride [Moles/Vol] 110 mmol/L Normal 101-111 [facility] Comment on above: Performed By: #### 2 945508, 28770738, 91339618, 6948566, 3941500, 2608895, 63729493, 9665752, 89433457 ####[facility] [address] [place] [address] CO2 [Moles/Vol] 22 mmol/L Normal 21-31 [facility] Comment on above: Performed By: #### 2 288045, 69921520, 10819061, 7030651, 1386759, 5651922, 61384016, 4419395, 26042961 ####[facility] [address] [place] [address] Creatinine [Mass/Vol] 0.8 mg/dL Normal 0.5-1.3 [facility] Comment on above: Performed By: #### 2 311990, 65623229, 57511720, 9080874, 7827453, 2738579, 82787867, 3074589, 14119894 ####[facility] [address] [place] [address] Glucose [Mass/Vol] 79 mg/dL Normal 55-199 [facility] Comment on above: Performed By: #### 2 544302, 43980368, 31089511, 9660862, 3963270, 0983284, 30363686, 2481590, 96457125 ####[facility] [address] [place] [address] Potassium [Moles/Vol] 3.6 mmol/L Normal 3.5-5.3 [facility] Comment on above: Performed By: #### 2 226029, 97710852, 63788505, 6536403, 3485461, 0747944, 68719280, 1461856, 24785919 ####[address] [place] [address] Sodium [Moles/Vol] 140 mmol/L Normal 135-145 [facility] Comment on above: Performed By: #### 2 867405, 88882015, 90529451, 0179084, 3591442, 4149200, 07387384, 8925745, 58852525 ####[address] [address] Urea nitrogen [Mass/Vol] 8 mg/dL Normal 5-21 [facility] Comment on above: Performed By: #### 2 746566, 32163508, 77763124, 6837440, 2134418, 3859354, 52608553, 1164202, 97742438 ####[facility] [address] [place] [address] CBC w/ Auto Diffon 4 Basophil Absolute 0.1 E9/L Normal 0.0-0.2 [facility] Comment on above: Performed By: #### 2 879220, 71288410, 54909131, 2762377, 4333412, 7914196, 26647368, 3675164, 83402832 ####[facility] [address] [place] [address] Basophils/100 WBC (Bld) 0.9 % Normal 0.0-2.0 [facility] Comment on above: Performed By: #### 2 298192, 11817960, 15353719, 0340547, 6907985, 3863778, 06553778, 0502174, 47446566 ####[address] [place] [address] Eos Absolute 0.6 E9/L High 0.0-0.5 [facility] Comment on above: Performed By: #### 2 105673, 89514959, 30543257, 3757745, 9745677, 7698354, 74344113, 3127864, 87555770 ####[address] [place] [address] Eosinophils/100 WBC (Bld) 9.6 % High 0.0-8.0 [facility] Comment on above: Performed By: #### 2 751694, 98100458, 85023727, 9135268, 9904718, 9994974, 32890908, 3157351, 45517547 ####[address] [address] Erythrocyte distribution width (RBC) [Ratio] 13.2 % Normal 10.9-14.2 [facility] Comment on above: Performed By: #### 2 095504, 08356036, 57291058, 8325026, 3696167, 4078043, 75378145, 5503597, 40862450 ####[address] [place] [address] Hematocrit (Bld) [Volume fraction] 36.0 % Normal 34.0-46.0 [facility] Comment on above: Performed By: #### 2 971017, 42397384, 31678350, 2519635, 0326559, 4737134, 68777563, 6271080, 93587783 ####[address] [place] [address] Hemoglobin (Bld) [Mass/Vol] 12.2 g/dL Normal 12.0-16.0 [facility] Comment on above: Performed By: #### 2 447277, 47567196, 68371871, 3860865, 9353840, 4159949, 97545517, 6674293, 95448995 ####[address] [place] [address] Lymph Absolute 2.0 E9/L Normal 1.0-4.0 [facility] Comment on above: Performed By: #### 2 501956, 56678395, 24831044, 3527142, 2623059, 1187440, 72794097, 4591803, 44684340 ####[address] [address] Lymphocytes/100 WBC (Bld) 32.4 % Normal 14.0-50.0 [facility] Comment on above: Performed By: #### 2 180768, 58782339, 96407590, 3028528, 9308387, 1709907, 74575576, 9485274, 98716379 ####[address] [address] MCH (RBC) [Entitic mass] 30.6 pg Normal 27.0-34.0 [facility] Comment on above: Performed By: #### 2 809111, 12074588, 58249079, 9319243, 2745212, 2459072, 26538784, 3930787, 54299716 ####[address] [address] MCHC (RBC) [Mass/Vol] 34.3 g/dL Normal 31.4-36.0 [facility] Comment on above: Performed By: #### 2 314411, 45878234, 05687109, 5173478, 2169141, 9641869, 80764203, 2864892, 57158605 ####[address] [address] MCV (RBC) [Entitic vol] 89.0 fL Normal 80.0-100.0 [facility] Comment on above: Performed By: #### 2 814337, 12455196, 57708016, 4538771, 5518797, 1598447, 75993071, 7216156, 21474863 ####[facility] [address] [place] [address] [place] Absolute 0.3 E9/L Normal 0.2-1.0 [facility] Comment on above: Performed By: #### 2 005704, 25956350, 43635111, 3515506, 1288054, 8436093, 03656847, 4336326, 60806240 ####[address] [place] [address] Monocytes/100 WBC (Bld) 5.6 % Normal 4.0-14.0 [facility] Comment on above: Performed By: #### 2 429348, 23683671, 27833784, 8056846, 4618335, 0074768, 16265539, 6277498, 69840347 ####[address] [address] Neutro Absolute 3.2 E9/L Normal 2.0-7.5 [facility] Comment on above: Performed By: #### 2 315958, 56220799, 35725482, 0640791, 1049556, 5272777, 87380045, 3507462, 88004867 ####[address] [place] [address] Neutro Auto 51.5 % Normal 36.0-75.0 [facility] Comment on above: Performed By: #### 2 629347, 64639185, 44913036, 4205124, 5353274, 9652291, 33089737, 9070150, 68329067 ####[address] [place] [address] Platelet 309.0 E9/L Normal 150.0-500.0 [facility] Comment on above: Result Comment: Demetar meneses with slide review Performed By: #### 2 615122, 32011826, 30876137, 1317253, 8256495, 1858062, 42467986, 3113354, 20120641 ####[facility] [address] [place] [address] Platelet mean volume (Bld) [Entitic vol] 9.1 fL Normal 6.4-10.8 [facility] Comment on above: Performed By: #### 2 055614, 05716802, 64685072, 2578910, 3732759, 6576903, 58854182, 3337899, 03156339 ####[facility] [address] [place] [address] RBC 4.0 E12/L Low 4.3-5.9 [facility] Comment on above: Performed By: #### 2 234774, 49381979, 19489844, 1943202, 6444996, 9180740, 21354875, 0520860, 71706759 ####[facility] [address] [place] [address] WBC 6.1 E9/L Normal 4.0-11.0 [facility] Comment on above: Performed By: #### 2 191928, 52947528, 82773897, 8936407, 3836315, 8727189, 06059607, 9379194, 27356198 ####[facility] [address] [place] [address] CHEMISTRYOrdered By: SYSTEM SYSTEM on 03-15-2023 Lactic [...] High Sensitivity Troponin I Instructions For Use, [facility] [place], September 2017) Urea nitrogen [Mass/Vol] 8 mg/dL Normal 5 - 21 mg/dL [facility] Urea nitrogen/Creatinine [Mass ratio] 10 mg/mg Normal 10 - 20 [facility] COAGULATIONOrdered By: Storm Baca on 03-15-2023 aPTT Coag (PPP) [Time] 32.3 s Normal 25.1 - 36.5 second(s) [facility] Auto Coag Comment on above: Interpretive Data: Leonel lamas 15 days - 4 weeks 1 [...] the same coagulation reagent and instrumentation as [facility]. Currently there are no coagulation studies available worldwide for children to 14 days, and no normal ranges. Heparin therapeutic range (represented by Anti-Factor Xa activity of 0.2 - 0.4 U/mL) corresponds to PTT of 56.6 - 109.0 sec. INR Coag (PPP) [Relative time] 1.1 {INR} Invalid Interpretation Code [facility] Auto Coag Comment on above: Interpretive Data: I NR results are specifically intended to assess patients stabilized on long-term Anticoagulation therapy suggested INR s Less Intensive Anticoagulation 2.0 3.0 Conventional Range 3.0 4.5 PT Coag (PPP) [Time] 12.6 s High 9.4 - 12.5 second(s) [facility] Auto Coag Comment on above: Interpretive Data: [...] the same coagulation reagent and instrumentation as [facility]. Currently there are no coagulation studies available worldwide for children to 14 days, and no normal ranges. CT Abdomen/Pelvis w/o Contra ston 03-15-2023 CT Abdomen/Pelvis w/o Contrast Normal [facility] Consent for Treatmenton 02-16 Consent for Treatment [id number] 3B#1.00TIFF Normal [facility] Discharge Instructionson Discharge Instructions [id number] 236#1.00TIFF Normal [facility] ED Clinical Summaryon 2023 ED Clinical Summary Normal [facility] ED Note-Physicianon 03-15-19 ED Note-Physician Normal [facility] Comment on above: Result Comment: Elec tronically Signed By: Earnest Jett DO\.br\Date and Time Signed: 03/15/23 17:31 EST ED Patient Education Noteon 03-15-2023 ED Patient Education Note Normal [facility] ED Patient Summaryon 024 ED Patient Summary Normal [facility] EMS Documentationon 03-15-19 EMS Documentation Please click on link to see report Normal [facility] Comment on above: Result Comment: Miss ing [...] Normal 80.0 - 100.0 fL Remisol Heme [place] Absolute 0.3 E9/L Normal 0.2 - 1.0 [...] 03-15-2023 Albumin [Mass/Vol] 3.6 g/dL Normal 3.3-5.0 [facility] Comment on above: Performed By: #### 2 389255, 15103671, 07081123, 8239015, 2612509, 3136424, 73791821, 8245434, 61327513 ####[facility] [place] [address] Albumin/Globulin [Mass ratio] 1.4 {ratio} Normal 1.1-2.2 [facility] Comment on above: Performed By: #### 2 843051, 61438272, 58787278, 6171442, 1449614, 3615973, 73451606, 0920252, 15744893 ####[facility] [address] [place] [address] Alk Phos 64 Int._Unit/L Normal 21-98 [facility] Comment on above: Performed By: #### 2 253307, 54669132, 81311594, 4244182, 1649750, 8408940, 99759039, 7116133, 52874974 ####[address] [place] [address] ALT 20 Int._Unit/L Normal 6-46 [facility] Comment on above: Performed By: #### 2 407571, 32214990, 87207359, 8201342, 1094232, 0861684, 85981051, 9155665, 51247784 ####[address] [place] [address] AST 35 Int._Unit/L Normal 5-43 [facility] Comment on above: Performed By: #### 2 992751, 51025352, 46509767, 6299574, 2309375, 5973049, 01683496, 8476402, 60703069 ####[address] [place] [address] Bili Direct 0.0 mg/dL Normal 0.0-0.4 [facility] Comment on above: Performed By: #### 2 980665, 03753366, 29233005, 7757317, 5384706, 3962537, 46861728, 1969129, 22193012 ####[facility] [address] [place] [address] Bili Indirect 0.2 mg/dL Normal 0.1-0.9 [facility] Comment on above: Performed By: #### 2 541164, 08915234, 95273388, 7156413, 5732005, 1156749, 99555553, 1440960, 32711963 ####[facility] [address] [place] [address] Bili Total 0.2 mg/dL Normal 0.0-1.1 [facility] Comment on above: Performed By: #### 2 146256, 86366560, 22202822, 4970454, 2728479, 9190730, 63116316, 4385112, 93071600 ####[facility] [address] [place] [address] Globulin (S) [Mass/Vol] 2.6 g/dL Normal 1.4-4.0 [facility] Comment on above: Performed By: #### 2 380441, 81498378, 91976371, 2985691, 3820755, 7545265, 17017963, 2443659, 98090671 ####[facility] [address] [place] [address] Protein [Mass/Vol] 6.2 g/dL Normal 6.0-7.8 [facility] Comment on above: Performed By: #### 2 346033, 66803123, 83149189, 6648569, 4965959, 9170898, 61839036, 0118331, 50903349 ####[facility] [address] [place] [address] Home Health Recordson 2023 Home Health Records [id number] 1#1.00TIFF Normal [facility] Lactic Acidon 03-15-2023 Lactic Acid Lvl 0.7 mmol/L Normal 0.5-2.2 [facility] Comment on above: Performed By: #### 2 979310, 87719845, 50240589, 6792408, 5099809, 2119684, 83614627, 4677355, 56265298 ####[facility] [address] [place] [address] Lipase Levelon 03-15-2023 Lipase Lvl 115 unit/L High 13-58 [facility] Comment on above: Performed By: #### 2 116998, 44823028, 58163187, 7047633, 3827312, 9191553, 05490309, 5316807, 40478923 ####[facility] [address] [place] [address] PT & PTTon 03-15-2023 aPTT Coag (PPP) [Time] 32.3 second(s) Normal 25.1-36.5 [facility] Comment on above: Result Comment: Para meter [...] the same coagulation reagent and instrumentation as [facility]. Currently there are no coagulation studies available worldwide for children to 14 days, and no normal ranges. Heparin therapeutic range (represented by Anti-Factor Xa activity of 0.2 - 0.4 U/mL) corresponds to PTT of 56.6 - 109.0 sec. Performed By: #### 2 912180, 06117172, 91495826, 4630895, 2888579, 9510034, 89699113, 1528926, 86313347 ####[facility] [address] [place] [address] INR Coag (PPP) [Relative time] 1.1 {INR} Invalid Interpretation Code [facility] Comment on above: Result Comment: INR results are specifically intended to assess patients stabilized on long-term Anticoagulation therapy suggested INR?s ?Less Intensive Anticoagulation? 2.0 ? 3.0Conventional Range 3.0 ? 4.5 Performed By: #### 2 639810, 80478505, 84725974, 5257362, 1077760, 1190423, 71159429, 1430972, 32047850 ####[facility] [address] [place] [address] PT Coag (PPP) [Time] 12.6 second(s) High 9.4-12.5 [facility] Comment on above: Result Comment: 15 d [...] the same coagulation reagent and instrumentation as [facility]. Currently there are no coagulation studies available worldwide for children to 14 days, and no normal ranges. Performed By: #### 2 871825, 69116681, 46756996, 1089991, 3308859, 8576987, 42834971, 2020342, 01151136 ####[address] [place] [address] Pre-Arrival Noteon Pre-Arrival Note Normal [facility] Troponin 0 Hr.on 03-15-2023 Troponin I.cardiac [Mass/Vol] ng/mL Low 10.10-27.10 [facility] Comment on above: Result Comment: The 95% CI (Confidence Interval) PPV (Positive Predictive Value) for myocardial infarction in females is 38 pg/mL, in males 51 pg/mL. The results should be used in conjunction with clinical conditions of myocardial infarction.(Access High Sensitivity Troponin I Instructions For Use, [facility], September 2017) Performed By: #### 2 196556, 91165272, 59511587, 7206819, 7532369, 9887638, 61862512, 6810805, 10145800 ####[facility] [address] [place] [address] UA With Cult Reflexon 2023 Bilirubin Ql (U) Negative Normal Negative [facility] Comment on above: Performed By: #### 1 9935192 ####[facility] [address] [place] [address] Clarity (U) CLEAR Normal Clear [facility] Comment on above: Performed By: #### 1 7403614 ####[address] [address] Color (U) ORANGE Abnormal Yellow [facility] Comment on above: Performed By: #### 1 4442077 ####[facility] [address] [place] [address] Crystals LM Ql (Urine sed) Present Normal [facility] Comment on above: Performed By: #### 1 3110193 ####[address] [address] Epithelial cells.squamous LM.HPF (Urine sed) [#/Area] 0-2 Normal 0-2 [facility] Comment on above: Performed By: #### 1 1167322 ####[facility] [address] [place] [address] Glucose Test strip (U) [Mass/Vol] TRACE Abnormal Negative [facility] Comment on above: Performed By: #### 1 0283839 ####[address] [address] Hemoglobin Ql (U) Negative Normal Negative [facility] Comment on above: Performed By: #### 1 9545202 ####[facility] [address] [place] [address] Ketones (U) [Mass/Vol] Negative Normal Negative [facility] Comment on above: Performed By: #### 1 0840849 ####[address] [address] [place].plasma/Lith ium.RBC (Bld) [Mass ratio] 0-3 Normal 0-3 [facility] Comment on above: Performed By: #### 1 4879132 ####[facility] [address] [place] [address] Nitrite Ql (U) See Comment Normal Negative [facility] Comment on above: Result Comment: Test Not Performed Due To Interfering Substance Performed By: #### 1 2084566 ####[address] [address] pH (U) 7.0 [pH] Invalid Interpretation Code 5.0-9.0 [facility] Comment on above: Performed By: #### 1 1346565 ####[address] [address] Protein (U) [Mass/Vol] 1+ Abnormal Negative [facility] Comment on above: Performed By: #### 1 6024661 ####[address] [address] Specific gravity (U) [Rel density] 1.010 Invalid Interpretation Code 1.005-1.030 [facility] Comment on above: Performed By: #### 1 5547346 ####[address] [address] Type of Urine collection method Clean Catch Normal [facility] Comment on above: Performed By: #### 1 4294836 ####[address] [address] Urobilinogen Qn (U) See Comment Normal 0.0-1.0 [facility] Comment on above: Result Comment: Test Not Performed Due To Interfering Substance Performed By: #### 1 1924955 ####[address] [address] WBC Auto Ql (U) Negative Normal Negative [facility] Comment on above: Performed By: #### 1 6228574 ####[address] [address] WBC LM.HPF (Urine sed) [#/Area] 0-5 Normal 0-5 [facility] Comment on above: Performed By: #### 1 8247722 ####[address] [address] URINALYSISOrdered By: Alcira Lee on 03-15-2023 Bilirubin Ql (U) Negative (03/15/23 2:43 PM) Normal Negative [facility] UA Auto SS Clarity (U) Clear (03/15/23 2:43 PM) Normal Clear [facility] UA Auto SS Color (U) Carver *ABN* (03/15/23 2:43 PM) Invalid Interpretation Code [...] PM) Normal Negative [facility] UA Auto SS [place].plasma/Lith ium.RBC (Bld) [Mass ratio] 0-3 /HPF Normal [...] (Urine sed) [#/Area] 0-5 /HPF Normal 0-5/HPF [facility] UA Auto SS XR Chest Single Viewon 03-15 XR Chest Single View Normal [facility] eGFRon 03-15-2023 eGFR 99 mL/min/1.73 m2 Normal >=59 [facility] Comment on above: Order Comment: Order added by Discern Expert. Performed By: #### 2 151092, 33618661, 30852270, 7401266, 1062993, 1776730, 68410248, 5175989, 81953385 ####[facility] [address] [place] [address] Basic metabolic 2000 panelon 03-10-2023 Anion gap [Moles/Vol] 11 mmol/L NINF - 19 mmol/L [facility] Calcium [Mass/Vol] 8.0 mg/dL Low 8.5 - 10.4 mg/dL [facility] Chloride [Moles/Vol] 108 mmol/L High 97 - 107 mmol/L [facility] CO2 [Moles/Vol] 22 mmol/L Low 24 - 31 mmol/L [facility] Creatinine [Mass/Vol] 0.60 mg/dL 0.40 - 1.60 mg/dL [facility] eGFR - PINF [facility] Comment on above: Calculations of jessica mated GFR are performed using the 2020 CKD-EPI Study Refit equation without the race variable for the IDMS-Traceable creatinine methods. https://jasn.asnjournals.org/content///ASN.47378729 88 Glucose [Mass/Vol] 89 mg/dL 65 - 99 mg/dL [facility] Interpretation and review of laboratory results Abnormal [facility] Potassium [Moles/Vol] 3.7 mmol/L 3.4 - 5.1 mmol/L [facility] Sodium [Moles/Vol] 141 mmol/L 133 - 145 mmol/L [facility] Urea nitrogen [Mass/Vol] 4 mg/dL Low 8 - 25 mg/dL [facility] Anion gap [Moles/Vol] 11 mmol/L Normal <=19 [facility] Comment on above: Performed By: #### 5 2969-3 #### ALON CARDOZATZER L ([id number]) [facility] ([facility]) [address] [place] [address] Calcium [Mass/Vol] 8.0 mg/dL Low 8.5-10.4 [facility] Comment on above: Performed By: #### 5 2969-3 #### ALON MARINMOTZER L (15150) [facility] ([facility]) [address] [place] [address] Chloride [Moles/Vol] 108 mmol/L High 97-107 [facility] Comment on above: Performed By: #### 5 2969-3 #### ALON MARINMOTZER L (57493) [facility] ([facility]) [address] [place] [address] CO2 [Moles/Vol] 22 mmol/L Low 24-31 [facility] Comment on above: Performed By: #### 5 2969-3 #### ALON MARINMOTZER L (88797) [facility] ([facility]) [address] [place] [address] Creatinine [Mass/Vol] 0.60 mg/dL Normal 0.40-1.60 [facility] Comment on above: Performed By: #### 5 2969-3 #### ALON PRECIADOER L ([id number]) [facility] ([facility]) [id number] [place] [address] GFR/1.73 sq M.predicted MDRD (S/P/Bld) [Vol rate/Area] mL/min/{1.73_m2} Normal >60 [facility] Comment on above: Result Comment: Calc ulations of estimated GFR are performed using the 2020 CKD-EPI Study Refit equation without the race variable for the IDMS-Traceable creatinine methods. https://jasn.asnjournals.org/content//ASN.93537059 88 Performed By: #### 5 2969-3 #### ALON Johnson ([id number]) [facility] ([facility]) [address] [place] [address] Glucose [Mass/Vol] 89 mg/dL Normal 65-99 [facility] Comment on above: Performed By: #### 5 2969-3 #### ALON AMBROSIO L (62787) [facility] ([facility]) [address] [place] [address] Potassium [Moles/Vol] 3.7 mmol/L Normal 3.4-5.1 [facility] Comment on above: Performed By: #### 5 2969-3 #### ALON Johnson ([id number]) [facility] ([facility]) [id number] [place] [address] Sodium [Moles/Vol] 141 mmol/L Normal 133-145 [facility] Comment on above: Performed By: #### 5 2969-3 #### ALON Johnson (49342) [facility] ([facility]) [address] [place] [address] Urea nitrogen [Mass/Vol] 4 mg/dL Low 8-25 [facility] Comment on above: Performed By: #### 5 2969-3 #### ALON AMBROSIO L (24522) [facility] ([facility]) [id number] [place] [address] CBC panel Auto (Bld)on 03-10 Erythrocyte distribution width (RBC) [Ratio] 12.9 % 11.5 - 14.5 % [facility] Hematocrit (Bld) [Volume fraction] 31.3 % Low 36.0 - 46.0 % [facility] Hemoglobin (Bld) [Mass/Vol] 10.6 g/dL Low 12.0 - 16.0 g/dL [facility] Interpretation and review of laboratory results Abnormal [facility] MCH (RBC) [Entitic mass] 30.7 pg 26.0 - 34.0 pg [facility] MCHC (RBC) [Mass/Vol] 33.9 g/dL 32.0 - 36.0 g/dL [facility] MCV (RBC) [Entitic vol] 91 fL 80 - 100 fL [facility] Nucleated RBC/100 WBC (Bld) [Ratio] 0.0 % [facility] Platelets (Bld) [#/Vol] 215 10*3/uL [facility] RBC (Bld) [#/Vol] 3.45 10*6/uL [facility] WBC (Bld) [#/Vol] 4.0 10*3/uL [facility] Erythrocyte distribution width (RBC) [Ratio] 12.9 % Normal 11.5-14.5 [facility] Comment on above: Performed By: #### 5 2969-3 #### ALON Johnson ([id number]) [facility] ([facility]) [address] [place] [address] 39947 Hematocrit (Bld) [Volume fraction] 31.3 % Low 36.0-46.0 [facility] Comment on above: Performed By: #### 5 2969-3 #### ALON Johnson ([id number]) [facility] ([facility]) [address] [place] [address] 78207 Hemoglobin (Bld) [Mass/Vol] 10.6 g/dL Low 12.0-16.0 [facility] Comment on above: Performed By: #### 5 2969-3 #### ALON Johnson ([id number]) [facility] ([facility]) [address] [place] [address] 55289 MCH (RBC) [Entitic mass] 30.7 pg Normal 26.0-34.0 [facility] Comment on above: Performed By: #### 5 2969-3 #### ALON Johnson ([id number]) [facility] ([facility]) [address] [place] [address] 87451 MCHC (RBC) [Mass/Vol] 33.9 g/dL Normal 32.0-36.0 [facility] Comment on above: Performed By: #### 5 2969-3 #### ALON Johnson ([id number]) [facility] ([facility]) [address] [place] [address] 43639 MCV (RBC) [Entitic vol] 91 fL Normal 80-100 [facility] Comment on above: Performed By: #### 5 2969-3 #### ALON Johnson ([id number]) [facility] ([facility]) [address] [place] [address] 26560 Nucleated RBC/100 WBC (Bld) [Ratio] 0.0 /100 WBCs Normal 0.0-0.0 [facility] Comment on above: Performed By: #### 5 2969-3 #### ALON Johnson ([id number]) [facility] ([facility]) [address] [place] [address] 06937 Platelets (Bld) [#/Vol] 215 x10*3/uL Normal 150-450 [facility] Comment on above: Performed By: #### 5 2969-3 #### ALON Johnson ([id number]) [facility] ([facility]) [address] [place] [address] 86640 RBC (Bld) [#/Vol] 3.45 x10*6/uL Low 4.00-5.20 [facility] Comment on above: Performed By: #### 5 2969-3 #### ALON Johnson ([id number]) [facility] ([facility]) [address] [place] [address] 35659 WBC (Bld) [#/Vol] 4.0 x10*3/uL Low 4.4-11.3 [facility] Comment on above: Performed By: #### 5 2969-3 #### ALON Johnson ([id number]) [facility] ([facility]) [address] [place] [address] 52320 Gastrointestinal pathogens i dentified HANK+probe Nom (Stl)Ordered By: Edwige Bronson on 03-10-2023 Campylobacter Group Not detected Not Detected [facility] E. coli stx1 gene HANK+probe Ql (Stl) Not detected Not Detected [facility] E. coli stx2 gene HANK+probe Ql (Stl) Not detected Not Detected [facility] Interpretation and review of laboratory results Normal [facility] Norovirus genogroup I and II RNA HANK+probe Nom (Stl) Not detected Not Detected [facility] Rotavirus RNA HANK+probe Nom (Stl) Not detected Not Detected [facility] Salmonella species Not detected Not Detected [facility] Shigella sp DNA HANK+probe Ql (Unsp spec) Not detected Not Detected [facility] Vibrio Group Not detected Not Detected [facility] Y. enterocolitica DNA HANK+probe Ql (Stl) Not detected Not Detected [facility] Glucose Test strip manual (B ld) [Mass/Vol]on 03-10-2023 Glucose [Mass/Vol] 104 mg/dL High 74 - 99 mg/dL [facility] Interpretation and review of laboratory results Abnormal [facility] Glucose [Mass/Vol] 104 mg/dL High 74-99 [facility] Comment on above: Performed By: #### 5 2969-3 #### ALON Johnson ([id number]) [facility] ([facility]) [address] [place] [address] 97137 Glucose [Mass/Vol] 82 mg/dL 74 - 99 mg/dL [facility] Glucose [Mass/Vol] 109 mg/dL High 74 - 99 mg/dL [facility] Interpretation and review of laboratory results Normal [facility] Interpretation and review of laboratory results Abnormal [facility] Glucose [Mass/Vol] 109 mg/dL High 74-99 [facility] Comment on above: Performed By: #### 5 2969-3 #### ALON Johnson ([id number]) [facility] ([facility]) [address] [place] [address] 23596 Glucose [Mass/Vol] 84 mg/dL 74 - 99 mg/dL [facility] Interpretation and review of laboratory results Normal [facility] Glucose [Mass/Vol] 84 mg/dL Normal 74-99 [facility] Comment on above: Performed By: #### 5 2969-3 #### ALON PRECIADOER L ([id number]) [facility] ([facility]) [address] [place] [address] Glucose [Mass/Vol] 79 mg/dL 74 - 99 mg/dL [facility] Interpretation and review of laboratory results Normal [facility] Glucose [Mass/Vol] 79 mg/dL Normal 74-99 [facility] Comment on above: Performed By: #### 5 2969-3 #### ALON NANIFREIDAER L ([id number]) [facility] ([facility]) [address] [place] [address] Basic metabolic 2000 panelon 03-09-2023 Anion gap [Moles/Vol] 10 mmol/L NINF - 19 mmol/L [facility] Calcium [Mass/Vol] 8.3 mg/dL Low 8.5 - 10.4 mg/dL [facility] Chloride [Moles/Vol] 105 mmol/L 97 - 107 mmol/L [facility] CO2 [Moles/Vol] 20 mmol/L Low 24 - 31 mmol/L [facility] Creatinine [Mass/Vol] 0.60 mg/dL 0.40 - 1.60 mg/dL [facility] eGFR - PINF [facility] Comment on above: Calculations of jessica mated GFR are performed using the 2020 CKD-EPI Study Refit equation without the race variable for the IDMS-Traceable creatinine methods. https://jasn.asnjournals.org/content//ASN.78347011 88 Glucose [Mass/Vol] 98 mg/dL 65 - 99 mg/dL [facility] Interpretation and review of laboratory results Abnormal [facility] Potassium [Moles/Vol] 3.7 mmol/L 3.4 - 5.1 mmol/L [facility] Sodium [Moles/Vol] 135 mmol/L 133 - 145 mmol/L [facility] Urea nitrogen [Mass/Vol] mg/dL Low 8 - 25 mg/dL [facility] Comment on above: Result rechecked [facility] Anion gap [Moles/Vol] 10 mmol/L Normal <=19 [facility] Comment on above: Performed By: #### 2 4321-2 ####MELISA Galvan ([id number])[facility] ()[address] [place] [address] Calcium [Mass/Vol] 8.3 mg/dL Low 8.5-10.4 [facility] Comment on above: Performed By: #### 2 4321-2 ####MELISA Galvan ([id number])[facility] ()[address] [place] [address] Chloride [Moles/Vol] 105 mmol/L Normal 97-107 [facility] Comment on above: Performed By: #### 2 4321-2 ####MELISA Galvan ([id number])[facility] ()[address] [place] [address] CO2 [Moles/Vol] 20 mmol/L Low 24-31 [facility] Comment on above: Performed By: #### 2 4321-2 ####MELISA Galvan ([id number])[facility] ()[address] [place] [address] Creatinine [Mass/Vol] 0.60 mg/dL Normal 0.40-1.60 [facility] Comment on above: Performed By: #### 2 4321-2 ####MELISA Galvan ([id number])[facility] ()[address] [place] [address] GFR/1.73 sq M.predicted MDRD (S/P/Bld) [Vol rate/Area] mL/min/{1.73_m2} Normal >60 [facility] Comment on above: Result Comment: Calc ulations of estimated GFR are performed using the 2020 CKD-EPI Study Refit equation without the race variable for the IDMS-Traceable creatinine methods. https://jasn.asnjournals.org/content//ASN.51299515 88 Performed By: #### 2 4321-2 ####MELISA Galvan ([id number])[facility] ()[address] [place] [address] Glucose [Mass/Vol] 98 mg/dL Normal 65-99 [facility] Comment on above: Performed By: #### 2 4321-2 ####MELISA Galvan ([id number])[facility] ()[address] [place] [address] Potassium [Moles/Vol] 3.7 mmol/L Normal 3.4-5.1 [facility] Comment on above: Performed By: #### 2 4321-2 ####MELISA Galvan ([id number])[facility] ()[address] [place] [address] Sodium [Moles/Vol] 135 mmol/L Normal 133-145 [facility] Comment on above: Performed By: #### 2 4321-2 ####MELISA Galvan ([id number])[facility] ()[address] [place] [address] Urea nitrogen [Mass/Vol] mg/dL Low 8-25 [facility] Comment on above: Result Comment: Resu lt rechecked Performed By: #### 2 4321-2 ####MELISA Galvan ([id number])[facility] ()[address] [place] [address] C. difficile toxin A+B tcdA+ tcdB genes HANK+probe Ql (Stl)on 03-09-2023 Interpretation and review of laboratory results Normal [facility] This test is an FDA-cleared real-time [...] more than once per 7 days. [facility] C. difficile, PCRon 03-09-19 C. difficile toxin A+B tcdA+tcdB genes HANK+probe Ql (Stl) Not detected Not Detected [facility] CBC panel Auto (Bld)on 03-09 Erythrocyte distribution width (RBC) [Ratio] 12.7 % 11.5 - 14.5 % [facility] Hematocrit (Bld) [Volume fraction] 34.6 % Low 36.0 - 46.0 % [facility] Hemoglobin (Bld) [Mass/Vol] 11.7 g/dL Low 12.0 - 16.0 g/dL [facility] Interpretation and review of laboratory results Abnormal [facility] MCH (RBC) [Entitic mass] 30.8 pg 26.0 - 34.0 pg [facility] MCHC (RBC) [Mass/Vol] 33.8 g/dL 32.0 - 36.0 g/dL [facility] MCV (RBC) [Entitic vol] 91 fL 80 - 100 fL [facility] Nucleated RBC/100 WBC (Bld) [Ratio] 0.0 % [facility] Platelets (Bld) [#/Vol] 226 10*3/uL [facility] RBC (Bld) [#/Vol] 3.80 10*6/uL Low [facility] WBC (Bld) [#/Vol] 6.8 10*3/uL [facility] Erythrocyte distribution width (RBC) [Ratio] 12.7 % Normal 11.5-14.5 [facility] Comment on above: Performed By: #### 5 8410-2 ####MELISA Galvan ([id number])[facility] ()[address] [place] [address] Hematocrit (Bld) [Volume fraction] 34.6 % Low 36.0-46.0 [facility] Comment on above: Performed By: #### 5 8410-2 ####MELISA Galvan ([id number])[facility] ()[address] [place] [address] Hemoglobin (Bld) [Mass/Vol] 11.7 g/dL Low 12.0-16.0 [facility] Comment on above: Performed By: #### 5 8410-2 ####MELISA Galvan ([id number])[facility] ()[address] [place] [address] MCH (RBC) [Entitic mass] 30.8 pg Normal 26.0-34.0 [facility] Comment on above: Performed By: #### 5 8410-2 ####MELISA Galvan ([id number])[facility] ()[address] [place] [address] MCHC (RBC) [Mass/Vol] 33.8 g/dL Normal 32.0-36.0 [facility] Comment on above: Performed By: #### 5 8410-2 ####MELISA Galvan ([id number])[facility] ()[address] [place] [address] MCV (RBC) [Entitic vol] 91 fL Normal 80-100 [facility] Comment on above: Performed By: #### 5 8410-2 ####MELISA Galvan ([id number])[facility] ()[address] [place] [address] Nucleated RBC/100 WBC (Bld) [Ratio] 0.0 /100 WBCs Normal 0.0-0.0 [facility] Comment on above: Performed By: #### 5 8410-2 ####MELISA Galvan ([id number])[facility] ()[address] [place] [address] Platelets (Bld) [#/Vol] 226 x10*3/uL Normal 150-450 [facility] Comment on above: Performed By: #### 5 8410-2 ####MELISA Galvan ([id number])[facility] ()[address] [place] [address] RBC (Bld) [#/Vol] 3.80 x10*6/uL Low 4.00-5.20 [facility] Comment on above: Performed By: #### 5 8410-2 ####MELISA POOLESarwat Galvan ([id number])[facility] ()[address] [place] [address] WBC (Bld) [#/Vol] 6.8 x10*3/uL Normal 4.4-11.3 [facility] Comment on above: Performed By: #### 5 8410-2 ####MELISA POOLESarwat Galvan ([id number])[facility] ()[address] [place] [address] Clostridioides difficile tox in A+B tcdA+tcdB geneson 03-09-2023 C. difficile toxin A+B tcdA+tcdB genes HANK+probe Ql (Stl) Clostridioides difficile toxin A+B tcdA+tcdB genes Not Detected Normal Not Detected [facility] Comment on above: Order Comment: This [...] days. Performed By: #### 8 0685-1 ####MELISA POOLESarwat Galvan ([id number])[facility] ()[address] [place] [address] Gastrointestinal pathogens i dentifiedon 03-09-2023 Gastrointestinal pathogens [...] Rotavirus RNA Not Detected Normal Not Detected [facility] Comment on above: Performed By: #### 5 2969-3 #### ALON Johnson ([id number]) [facility] ([facility]) [address] [place] [address] Glucose Test strip manual (B ld) [Mass/Vol]on 03-09-2023 Glucose [Mass/Vol] 82 mg/dL Normal 74-99 [facility] Comment on above: Performed By: #### 5 2969-3 #### ALON Johnson ([id number]) [facility] ([facility]) [address] [place] [address] Glucose [Mass/Vol] 91 mg/dL 74 - 99 mg/dL [facility] Interpretation and review of laboratory results Normal [facility] Glucose [Mass/Vol] 91 mg/dL Normal 74-99 [facility] Comment on above: Performed By: #### 5 2969-3 #### ALON Johnson ([id number]) [facility] ([facility]) [address] [place] [address] Glucose [Mass/Vol] 83 mg/dL 74 - 99 mg/dL [facility] Interpretation and review of laboratory results Normal [facility] Glucose [Mass/Vol] 83 mg/dL Normal 74-99 [facility] Comment on above: Performed By: #### 2 341-6 ####MELISA Galvan ([id number])[facility] ()[address] [place] [address] Glucose [Mass/Vol] 82 mg/dL 74 - 99 mg/dL [facility] Interpretation and review of laboratory results Normal [facility] Glucose [Mass/Vol] 82 mg/dL Normal 74-99 [facility] Comment on above: Performed By: #### 2 341-6 ####MELISA Galvan ([id number])[facility] ()[address] [place] [address] Glucose [Mass/Vol] 120 mg/dL High 74 - 99 mg/dL [facility] Interpretation and review of laboratory results Abnormal [facility] Glucose [Mass/Vol] 120 mg/dL High 74-99 [facility] Comment on above: Performed By: #### 2 341-6 ####MELISA MC Mandy ([id number])[facility] ()[address] [place] [address] Glucose [Mass/Vol] 62 mg/dL Low 74 - 99 mg/dL [facility] Interpretation and review of laboratory results Abnormal [facility] Glucose [Mass/Vol] 62 mg/dL Low 74-99 [facility] Comment on above: Performed By: #### 2 341-6 ####MELISA POOLESarwat Galvan ([id number])[facility] ()[address] [place] [address] Basic metabolic 2000 panelon 03-08-2023 Anion gap [Moles/Vol] 8 mmol/L NINF - 19 mmol/L [facility] Calcium [Mass/Vol] 8.2 mg/dL Low 8.5 - 10.4 mg/dL [facility] Chloride [Moles/Vol] 106 mmol/L 97 - 107 mmol/L [facility] CO2 [Moles/Vol] 22 mmol/L Low 24 - 31 mmol/L [facility] Creatinine [Mass/Vol] 0.70 mg/dL 0.40 - 1.60 mg/dL [facility] eGFR - PINF [facility] Comment on above: Calculations of jessica mated GFR are performed using the 2020 CKD-EPI Study Refit equation without the race variable for the IDMS-Traceable creatinine methods. https://jasn.asnjournals.org/content//ASN.16778915 88 Glucose [Mass/Vol] 91 mg/dL 65 - 99 mg/dL [facility] Interpretation and review of laboratory results Abnormal [facility] Potassium [Moles/Vol] 3.7 mmol/L 3.4 - 5.1 mmol/L [facility] Sodium [Moles/Vol] 136 mmol/L 133 - 145 mmol/L [facility] Urea nitrogen [Mass/Vol] 3 mg/dL Low 8 - 25 mg/dL [facility] Anion gap [Moles/Vol] 8 mmol/L Normal <=19 [facility] Comment on above: Performed By: #### 2 4323-8 #### MELISA Galvan (82705) [facility] () [address] [place] [address] Calcium [Mass/Vol] 8.2 mg/dL Low 8.5-10.4 [facility] Comment on above: Performed By: #### 2 4323-8 #### MELISA Galvan ([id number]) [facility] () [address] [place] [address] Chloride [Moles/Vol] 106 mmol/L Normal 97-107 [facility] Comment on above: Performed By: #### 2 4323-8 #### MELISA Galvan ([id number]) [facility] () [address] [place] [address] CO2 [Moles/Vol] 22 mmol/L Low 24-31 [facility] Comment on above: Performed By: #### 2 4323-8 #### MELISA Galvan (82822) [facility] () [address] [place] [address] Creatinine [Mass/Vol] 0.70 mg/dL Normal 0.40-1.60 [facility] Comment on above: Performed By: #### 2 4323-8 #### MELISA Galvan (72832) [facility] () [address] [place] [address] GFR/1.73 sq M.predicted MDRD (S/P/Bld) [Vol rate/Area] mL/min/{1.73_m2} Normal >60 [facility] Comment on above: Result Comment: Calc ulations of estimated GFR are performed using the 2020 CKD-EPI Study Refit equation without the race variable for the IDMS-Traceable creatinine methods. https://jasn.asnjournals.org/content//ASN.19385986 88 Performed By: #### 2 4323-8 #### MELISA Galvan ([id number]) [facility] () [address] [place] [address] Glucose [Mass/Vol] 91 mg/dL Normal 65-99 [facility] Comment on above: Performed By: #### 2 4323-8 #### MELISA Galvan ([id number]) [facility] () [address] [place] [address] Potassium [Moles/Vol] 3.7 mmol/L Normal 3.4-5.1 [facility] Comment on above: Performed By: #### 2 4323-8 #### MELISA Galvan (48180) [facility] () [address] [place] [address] Sodium [Moles/Vol] 136 mmol/L Normal 133-145 [facility] Comment on above: Performed By: #### 2 4323-8 #### MELISA Galvan ([id number]) [facility] () [address] [place] [address] Urea nitrogen [Mass/Vol] 3 mg/dL Low 8-25 [facility] Comment on above: Performed By: #### 2 4323-8 #### MELISA Galvan (31566) [facility] () [address] [place] [address] CBC panel Auto (Bld)on 03-08 Erythrocyte distribution width (RBC) [Ratio] 12.8 % 11.5 - 14.5 % [facility] Hematocrit (Bld) [Volume fraction] 32.2 % Low 36.0 - 46.0 % [facility] Hemoglobin (Bld) [Mass/Vol] 10.9 g/dL Low 12.0 - 16.0 g/dL [facility] Interpretation and review of laboratory results Abnormal [facility] MCH (RBC) [Entitic mass] 31.3 pg 26.0 - 34.0 pg [facility] MCHC (RBC) [Mass/Vol] 33.9 g/dL 32.0 - 36.0 g/dL [facility] MCV (RBC) [Entitic vol] 93 fL 80 - 100 fL [facility] Nucleated RBC/100 WBC (Bld) [Ratio] 0.0 % [facility] Platelets (Bld) [#/Vol] 171 10*3/uL [facility] RBC (Bld) [#/Vol] 3.48 10*6/uL [facility] WBC (Bld) [#/Vol] 4.2 10*3/uL [facility] Erythrocyte distribution width (RBC) [Ratio] 12.8 % Normal 11.5-14.5 [facility] Comment on above: Performed By: #### 2 4323-8 #### MELISA Galvan ([id number]) [facility] () [address] [place] [address] Hematocrit (Bld) [Volume fraction] 32.2 % Low 36.0-46.0 [facility] Comment on above: Performed By: #### 2 4323-8 #### MELISA Galvan (54456) [facility] () [address] [place] [address] Hemoglobin (Bld) [Mass/Vol] 10.9 g/dL Low 12.0-16.0 [facility] Comment on above: Performed By: #### 2 4323-8 #### MELISA Galvan ([id number]) [facility] () [address] [place] [address] MCH (RBC) [Entitic mass] 31.3 pg Normal 26.0-34.0 [facility] Comment on above: Performed By: #### 2 4323-8 #### MELISA Galvan (28184) [facility] () [address] [place] [address] MCHC (RBC) [Mass/Vol] 33.9 g/dL Normal 32.0-36.0 [facility] Comment on above: Performed By: #### 2 4323-8 #### MELISA Galvan ([id number]) [facility] () [address] [place] [address] MCV (RBC) [Entitic vol] 93 fL Normal 80-100 [facility] Comment on above: Performed By: #### 2 4323-8 #### MELISA Galvan (38777) [facility] () [address] [place] [address] Nucleated RBC/100 WBC (Bld) [Ratio] 0.0 /100 WBCs Normal 0.0-0.0 [facility] Comment on above: Performed By: #### 2 4323-8 #### MELISA Galvan (97031) [facility] () [address] [place] [address] Platelets (Bld) [#/Vol] 171 x10*3/uL Normal 150-450 [facility] Comment on above: Performed By: #### 2 4323-8 #### MELISA Galvan (60334) [facility] () [address] [place] [address] RBC (Bld) [#/Vol] 3.48 x10*6/uL Low 4.00-5.20 [facility] Comment on above: Performed By: #### 2 4323-8 #### EMLISA Galvan ([id number]) [facility] () [address] [place] [address] WBC (Bld) [#/Vol] 4.2 x10*3/uL Low 4.4-11.3 [facility] Comment on above: Performed By: #### 2 4323-8 #### MELISA Galvan (00905) [facility] () [address] [place] [address] Glucose Test strip manual (B ld) [Mass/Vol]on 03-08-2023 Glucose [Mass/Vol] 89 mg/dL 74 - 99 mg/dL [facility] Interpretation and review of laboratory results Normal [facility] Glucose [Mass/Vol] 89 mg/dL Normal 74-99 [facility] Comment on above: Performed By: #### 2 341-6 ####MELISA Galvan ([id number])[facility] ()[address] [place] [address] Glucose [Mass/Vol] 85 mg/dL 74 - 99 mg/dL [facility] Interpretation and review of laboratory results Normal [facility] Glucose [Mass/Vol] 85 mg/dL Normal 74-99 [facility] Comment on above: Performed By: #### 2 341-6 ####MELISA Galvan ([id number])[facility] ()[address] [place] [address] Glucose [Mass/Vol] 151 mg/dL High 74 - 99 mg/dL [facility] Interpretation and review of laboratory results Abnormal [facility] Glucose [Mass/Vol] 151 mg/dL High 74-99 [facility] Comment on above: Performed By: #### 2 341-6 ####MELISA Galvan ([id number])[facility] ()[address] [place] [address] Glucose [Mass/Vol] 89 mg/dL 74 - 99 mg/dL [facility] Interpretation and review of laboratory results Normal [facility] Glucose [Mass/Vol] 89 mg/dL Normal 74-99 [facility] Comment on above: Performed By: #### 2 4323-8 #### MELISA Galvan ([id number]) [facility] () [address] [place] [address] Glucose [Mass/Vol] 97 mg/dL 74 - 99 mg/dL [facility] Interpretation and review of laboratory results Normal [facility] Glucose [Mass/Vol] 97 mg/dL Normal 74-99 [facility] Comment on above: Performed By: #### 2 4323-8 #### MELISA Galvan ([id number]) [facility] ([place]) [address] [place] [address] Glucose [Mass/Vol] 102 mg/dL High 74 - 99 mg/dL [facility] Interpretation and review of laboratory results [facility] Glucose [Mass/Vol] 102 mg/dL High 74-99 [facility] Comment on above: Performed By: #### 2 4323-8 #### MELISA Galvan ([id number]) [facility] ([place]) [address] [place] [address] Surgical pathology studyOrde red By: Melisa Mc on 03-08-2023 Laboratory comment John (Report) [id number] mbGFuZzEwMzNcZnRuYm pcdWMxIHtccnRmMVxzc 3YlS7KrZnNjPConknTv XGRlZmxhbmcxMDMzXGZ 0bmJqXHVjMVxkZWZmMH nsPu8owFSebYflJjNpU GGht3kbfvYVSMesRHFH OFn6w3klWNWpBjV8yCH lTRifN0eagdJhgVBxT9 Ejp3EaRTu1vU82GYJnu H3bsXVsOBfqtsZxDlT6 WQfaWJKhRhE0IBUksTN iCLQyN0ioZRWuMSorCE TcAQaaeOXoKMJ5lWeow 3G8qQPjdKDdrRfvZqGj ScXcHyBNd7DkZGn3gVd gF3KvZVLeCsB3lMIrAD OyGZesGFFnHHLutwQ5j U78MEmrqdX7qNMoz1Gb v40lv221hX4igJSkYMP 3MTIyNDBccGFwZXJoMT X7BXQdxYPiP0oyTqHva MMjU5IvAhDwzIJhY0Jy HyUbeIYzY0VnBdHtlLP jPQRfkOI9GLvkf022UU A0JjBaYS5cQ2Sal6P4q C7ayGNwBLRrjQGpJoYj XOYvsw1etXWxDRsnt2M wHDO9nhT4aDWgsYAzWS XzUL01Cgeuw3EhNpywD KZ3AVCatoMeg3Tkb5dw NqQtexRoG6vkK6VsOVK oZWFkXHBnYnJkcmZvb3 Khj7RigTKlpWd2a5axZ ZStYLIlbSxqo5uyPHP6 RQLuD1L0aKPyz4wiSZd yWSQdiIF0lsM7MVpkRT WeuzT7anV1RHaaQVIwg QL1aoX6ZSwfZCEgGmS0 cjI9YGyrEZRaVDJ2OsF qGBUzw9SjkmpzPyHll9 NszUMjDYctC15sa831M ZMgboJoQ6neqQJeatjl qPFgltecRNwuedI4ENC sXHBsYWluXGYxXGZzMj BcbGFuZzEwMzNcaGlja FxmMVxkYmNoXGYxXGxv P9uqQzYaNrVyXOLHdSF 6dUQxv4vtfyB8kDOgGR 8kGWDnpBHadqLda6N9T LX6mEIhkM1rsTUmMVBm iBXwplAlfk75hVOxbJO 1RPMyQXGmdBMvsM8rSQ JbYHWMiK9mgTSWiwDll bQyUNUjdKpysm3ScFWf th0uwAXvG4WhkAzzqTR zIHRoYXQgdGhleSBoYX FcXEOcsnlzg4ZvKOVrr HGrO3CzSC0fADVoqf77 [facility] Work Phone: Pathology report Cancer Narrative Surgical Pathology Case: [id number] Authorizing Provider: Sherry Magaña MD Collected: 03/05/2023 1125 Ordering Location: [facility] Received: 03/05/2023 1314 Center OR Pathologist: Melisa Mc MD Specimen: LIGAMENT, Median Arcuate Ligament [facility] Work Phone: Pathology report final diagnosis Narrative f5lrpDSyBOBtqJUyQCT wNFxhbnNpXHNwbHRwZ3 DseayyNTfwYH4qTV7ss GxhdHRveWVuXGRlZmYw u6rai586zGSjv1ftVVK YPRtvXYQNAVf1c2zoQZ YKmzktvGv4cBqqO88bl 3I2AywgP5byWZMtNXqp YOIeSYxzvNYtOSw7JDW hcGVydzEyMjQwXHBhcG TciPY9YOUmIJ7tncehG BgwVCoxIDMwzfT5KHHw mPAsY8FoUZNxNL1qcmz oMEN3DOqfNIBiFXQ5Tm CaSCAop5Zffyc5WnZwv Dl0v0wiPLHoVUSiaGkg n0unALS9YMPeyACxS0p rvL8yGISsAV5kponms7 qpWPiuAIgvJYSfqYH1v fA4ODDsvLHhW6JreJ8e NDQwXHBhcmRccGxhaW5 cZjFcZnMyMlxjZjFccG XfGQ3SGTsEDyUSStGEA DKAOUoVI2RPIV3YLCZU XQCIY4lQQqdhdSKpNVQ wVxIRwWAgp5EbuDBwx4 PiSQ8qnHFwbUCmfnLbm 43zzJufViEbD63qyoNq z5QoxJxqbAnlmZYvbFr zb1FwDLZtk8O4UDikY9 xpbmljYWxseSBtZWRpY K7lLZJhrBJ4FQWbpWxe qSUxjJHoiP8ynn5eAP7 ccGFyfQ== [facility] Work Phone: Pathology report gross observation Narrative h6pnmTHqSSAgwHNDYRB 0EWNyJU5frCmywCh5vR msISOfkxU6yIQpHDfld 1gdDMT1m8ngkfQGXiqz GMMjVO9eSBgrNXUmBK5 nZmUwXGRlZmYxXHBhcG VydzEyMjQwXHBhcGVya QH3ZBWiKX1tazqbWKty LDbzHQQfzoD1AEJjyMR nX8TlJFGqNE1uuzpzWH A6OBMOIddyLc3hgBUci CANCntcZjFcZmNoYXJz XLJqKTTtlGefC4Znu9A tSZz3nE3Rz8obRozdA9 xfivEpxMEpGb7onIRHs culjGf1lA4HCUQpE8Yn PV4Ck4mzGEKlsMIlQNP 2YOhkt2wuDCwpFFN2WE JiHSDeMNKlPM8MJaPnT TwdNOAeGRXwNRd0WRr3 KSDIAAKcKrU0LBY4QNh 4TQd2TIchfiokZFb0SQ RcXYvjgXCtWT0vjWkaM rkcpAwhp1XlmSOtGYOk IFxcaWQgNTEwMDIgXFx tJmLPPiZvKfP3NtJoNV BgOvU7BYv6BCTWUhEpD fGlEHSqZln5MYBxYRw4 NQx2UCxBGkQ2YtS7DIz 0OlcjGJZ5EtQvIWtohN BcXHQgMiBcXHNzIDMgX JylsOMsQH2lmXssAZGi SY6YAXJpJRasZBCmwEG OIDD6TW3zBFYDPygzyO UmLHZgSWyydCPcA7chW jJcZnMyMCBBOiBSZWNl aXZlZCBmcmVzaCBsYWJ lbGVkIHdpdGggdGhlIH BgdAlcuuQkskKqUW8nX LCxZKQyu6UwmCVbcSXm aU8tDQAvJR7lXDDoLFL gRX0zGTBhxSZ0JKVdhM dhbWVudCIsIGFyZSAyI GlycmVndWxhciBhbmQg vWWiQHCaKZVll0R4HIC fu1A1VLJribTseDYrsT KstDTzk8YrdI2jOSThB WCdyBS9ACTiVxH5TBJg IiYspFHfxkCxS9ahBVm pyKMvCLJLeGFar1EcO9 leDC8vjVXms7ZhoDclf mVkIGFuZCBlbnRpcmVs ySEpaHWhkTD2RKYrxS7 tEGGyAYZqAEE0HM0snG GvPE2FEDDIELUbmrBOB krnOKIcRVtBnr6zqoKq jMUlCGW6bQ0vJWFyilT pkc7zYDBnkRfozQDcTR 4QCY6djgSgy2i6dSGIu 3NwaXRhbHMgTGFrZSBX YOY3SL8pGPajZMzhF6S drPVdJJKhraXZPsJ3BE VuKEO8D8pnSDSYgaVxw HXjzSEqQT3WD4gyoD17 F4ahwZslU4lrmlX5SGE 0EXiwBYMeBIwvr9ObTG xlcGljWHNhMzAgDQpQa A7vXMcfOHX7TLpuRNEt LTYwMjUgIEZheDogKDQ 1GDnxZoZxXNZ4RZHQHx vvuWnsRpGvtUQrHiE1T BQiyOCbXQJ2DM4iwLyd PGRwV6FeP0NyulN1DSV qoyFQFjmaBOTyGH0PAM WyWFulYM1QhL== [facility] Work Phone: Pathology report relevant history Narrative l5cxsXUrGUShr3wsLSN mbGFuZzEwMzNcZnRuYm v9QLMsweV7Hho6JWMyI ZfnbU9hHHIzZDvyA2go sySsrVXnP4Wqt4JiZXe 7iU6mwTzejB7iEoDvHz EgBSRAlnIqb1SiVVxjF 63sl6bfThijJVFkQUBz pLVsWPYsP5BeoKGcdRa bFJ1ltvDer3omMDDfuJ WfYSAUNe6FH9TmJBpVN dotAL9hrMWnEM9= [facility] Work Phone: [facility] Work Phone: Basic metabolic 2000 panelon 03-07-2023 Anion gap [Moles/Vol] 7 mmol/L NINF - 19 mmol/L [facility] Calcium [Mass/Vol] 8.0 mg/dL Low 8.5 - 10.4 mg/dL [facility] Chloride [Moles/Vol] 111 mmol/L High 97 - 107 mmol/L [facility] CO2 [Moles/Vol] 21 mmol/L Low 24 - 31 mmol/L [facility] Creatinine [Mass/Vol] 0.70 mg/dL 0.40 - 1.60 mg/dL [facility] eGFR - PINF [facility] Comment on above: Calculations of jessica mated GFR are performed using the 2020 CKD-EPI Study Refit equation without the race variable for the IDMS-Traceable creatinine methods. https://jasn.asnjournals.org/content//ASN.09972349 88 Glucose [Mass/Vol] 100 mg/dL High 65 - 99 mg/dL [facility] Interpretation and review of laboratory results Abnormal [facility] Potassium [Moles/Vol] 3.9 mmol/L 3.4 - 5.1 mmol/L [facility] Sodium [Moles/Vol] 139 mmol/L 133 - 145 mmol/L [facility] Urea nitrogen [Mass/Vol] 4 mg/dL Low 8 - 25 mg/dL [facility] Anion gap [Moles/Vol] 7 mmol/L Normal <=19 [facility] Comment on above: Performed By: #### 5 7021-8 #### MELISA Galvan ([id number]) [facility] ([place]) [address] [place] [address] Calcium [Mass/Vol] 8.0 mg/dL Low 8.5-10.4 [facility] Comment on above: Performed By: #### 5 7021-8 #### MELISA Galvan ([id number]) [facility] () [address] [place] [address] Chloride [Moles/Vol] 111 mmol/L High 97-107 [facility] Comment on above: Performed By: #### 5 7021-8 #### MELISA Galvan ([id number]) [facility] () [address] [place] [address] CO2 [Moles/Vol] 21 mmol/L Low 24-31 [facility] Comment on above: Performed By: #### 5 7021-8 #### MELISA Galvan ([id number]) [facility] () [address] [place] [address] Creatinine [Mass/Vol] 0.70 mg/dL Normal 0.40-1.60 [facility] Comment on above: Performed By: #### 5 7021-8 #### MELISA Galvan ([id number]) [facility] () [address] [place] [address] GFR/1.73 sq M.predicted MDRD (S/P/Bld) [Vol rate/Area] mL/min/{1.73_m2} Normal >60 [facility] Comment on above: Result Comment: Calc ulations of estimated GFR are performed using the 2020 CKD-EPI Study Refit equation without the race variable for the IDMS-Traceable creatinine methods. https://jasn.asnjournals.org/content//ASN.29539582 88 Performed By: #### 5 7021-8 #### MELISA Galvan ([id number]) [facility] () [address] [place] [address] Glucose [Mass/Vol] 100 mg/dL High 65-99 [facility] Comment on above: Performed By: #### 5 7021-8 #### MELISA Galvan ([id number]) [facility] () [address] [place] [address] Potassium [Moles/Vol] 3.9 mmol/L Normal 3.4-5.1 [facility] Comment on above: Performed By: #### 5 7021-8 #### MELISA Galvan ([id number]) [facility] () [address] [place] [address] Sodium [Moles/Vol] 139 mmol/L Normal 133-145 [facility] Comment on above: Performed By: #### 5 7021-8 #### MELISA Galvan ([id number]) [facility] () [address] [place] [address] Urea nitrogen [Mass/Vol] 4 mg/dL Low 8-25 [facility] Comment on above: Performed By: #### 5 7021-8 #### MELISA Galvan ([id number]) [facility] () [address] [place] [address] CBC panel Auto (Bld)on 03-07 Erythrocyte distribution width (RBC) [Ratio] 13.2 % 11.5 - 14.5 % [facility] Hematocrit (Bld) [Volume fraction] 33.3 % Low 36.0 - 46.0 % [facility] Hemoglobin (Bld) [Mass/Vol] 11.0 g/dL Low 12.0 - 16.0 g/dL [facility] Interpretation and review of laboratory results Abnormal [facility] MCH (RBC) [Entitic mass] 31.3 pg 26.0 - 34.0 pg [facility] MCHC (RBC) [Mass/Vol] 33.0 g/dL 32.0 - 36.0 g/dL [facility] MCV (RBC) [Entitic vol] 95 fL 80 - 100 fL [facility] Nucleated RBC/100 WBC (Bld) [Ratio] 0.0 % [facility] Platelets (Bld) [#/Vol] 155 10*3/uL [facility] RBC (Bld) [#/Vol] 3.51 10*6/uL Low [facility] WBC (Bld) [#/Vol] 5.1 10*3/uL [facility] Erythrocyte distribution width (RBC) [Ratio] 13.2 % Normal 11.5-14.5 [facility] Comment on above: Performed By: #### 5 7021-8 #### MELISA Galvan ([id number]) [facility] () [address] [place] [address] Hematocrit (Bld) [Volume fraction] 33.3 % Low 36.0-46.0 [facility] Comment on above: Performed By: #### 5 7021-8 #### MELISA Galvan ([id number]) [facility] () [address] [place] [address] Hemoglobin (Bld) [Mass/Vol] 11.0 g/dL Low 12.0-16.0 [facility] Comment on above: Performed By: #### 5 7021-8 #### MELISA Galvan ([id number]) [facility] () [address] [place] [address] MCH (RBC) [Entitic mass] 31.3 pg Normal 26.0-34.0 [facility] Comment on above: Performed By: #### 5 7021-8 #### MELISA Galvan ([id number]) [facility] () [address] [place] [address] MCHC (RBC) [Mass/Vol] 33.0 g/dL Normal 32.0-36.0 [facility] Comment on above: Performed By: #### 5 7021-8 #### MELISA Galvan ([id number]) [facility] () [address] [place] [address] MCV (RBC) [Entitic vol] 95 fL Normal 80-100 [facility] Comment on above: Performed By: #### 5 7021-8 #### MELISA Galvan ([id number]) [facility] () [address] [place] [address] Nucleated RBC/100 WBC (Bld) [Ratio] 0.0 /100 WBCs Normal 0.0-0.0 [facility] Comment on above: Performed By: #### 5 7021-8 #### MELISA Galvan ([id number]) [facility] () [address] [place] [address] Platelets (Bld) [#/Vol] 155 x10*3/uL Normal 150-450 [facility] Comment on above: Performed By: #### 5 7021-8 #### MELISA Galvan ([id number]) [facility] () [address] [place] [address] RBC (Bld) [#/Vol] 3.51 x10*6/uL Low 4.00-5.20 [facility] Comment on above: Performed By: #### 5 7021-8 #### MELISA Galvan ([id number]) [facility] () [address] [place] [address] WBC (Bld) [#/Vol] 5.1 x10*3/uL Normal 4.4-11.3 [facility] Comment on above: Performed By: #### 5 7021-8 #### MELISA Galvan ([id number]) [facility] () [address] [place] [address] Glucose Test strip manual (B ld) [Mass/Vol]on 03-07-2023 Glucose [Mass/Vol] 125 mg/dL High 74 - 99 mg/dL [facility] Interpretation and review of laboratory results Abnormal [facility] Glucose [Mass/Vol] 125 mg/dL High 74-99 [facility] Comment on above: Performed By: #### 2 4323-8 #### MELISA Galvan ([id number]) [facility] () [address] [place] [address] Glucose [Mass/Vol] 117 mg/dL High 74 - 99 mg/dL [facility] Interpretation and review of laboratory results Abnormal [facility] Glucose [Mass/Vol] 117 mg/dL High 74-99 [facility] Comment on above: Performed By: #### 2 4323-8 #### MELISA Galvan ([id number]) [facility] () [address] [place] [address] Glucose [Mass/Vol] 98 mg/dL 74 - 99 mg/dL [facility] Interpretation and review of laboratory results Normal [facility] Glucose [Mass/Vol] 98 mg/dL Normal 74-99 [facility] Comment on above: Performed By: #### 2 4323-8 #### MELISA Galvan ([id number]) [facility] () [address] [place] [address] Glucose [Mass/Vol] 98 mg/dL 74 - 99 mg/dL [facility] Interpretation and review of laboratory results Normal [facility] Glucose [Mass/Vol] 98 mg/dL Normal 74-99 [facility] Comment on above: Performed By: #### 2 4323-8 #### MELISA Galvan (59762) [facility] () [address] [place] [address] Glucose [Mass/Vol] 108 mg/dL High 74 - 99 mg/dL [facility] Interpretation and review of laboratory results Abnormal [facility] Glucose [Mass/Vol] 108 mg/dL High 74-99 [facility] Comment on above: Performed By: #### 5 7021-8 #### MELISA Galvan ([id number]) [facility] () [address] [place] [address] Glucose [Mass/Vol] 119 mg/dL High 74 - 99 mg/dL [facility] Interpretation and review of laboratory results Abnormal [facility] Basic metabolic 2000 panelon 03-06-2023 Anion gap [Moles/Vol] 7 mmol/L NINF - 19 mmol/L [facility] Calcium [Mass/Vol] 8.1 mg/dL Low 8.5 - 10.4 mg/dL [facility] Chloride [Moles/Vol] 109 mmol/L High 97 - 107 mmol/L [facility] CO2 [Moles/Vol] 21 mmol/L Low 24 - 31 mmol/L [facility] Creatinine [Mass/Vol] 0.70 mg/dL 0.40 - 1.60 mg/dL [facility] eGFR - PINF [facility] Comment on above: Calculations of jessica mated GFR are performed using the 2020 CKD-EPI Study Refit equation without the race variable for the IDMS-Traceable creatinine methods. https://jasn.asnjournals.org/content//ASN.59113766 88 Glucose [Mass/Vol] 149 mg/dL High 65 - 99 mg/dL [facility] Interpretation and review of laboratory results Abnormal [facility] Potassium [Moles/Vol] 3.7 mmol/L 3.4 - 5.1 mmol/L [facility] Sodium [Moles/Vol] 137 mmol/L 133 - 145 mmol/L [facility] Urea nitrogen [Mass/Vol] 5 mg/dL Low 8 - 25 mg/dL [facility] Anion gap [Moles/Vol] 7 mmol/L Normal <=19 [facility] Comment on above: Performed By: #### 5 7021-8 #### MELISA Galvan ([id number]) [facility] () [address] [place] [address] Calcium [Mass/Vol] 8.1 mg/dL Low 8.5-10.4 [facility] Comment on above: Performed By: #### 5 7021-8 #### MELISA Galvan (40998) [facility] () [address] [place] [address] Chloride [Moles/Vol] 109 mmol/L High 97-107 [facility] Comment on above: Performed By: #### 5 7021-8 #### MELISA Galvan ([id number]) [facility] () [address] [place] [address] CO2 [Moles/Vol] 21 mmol/L Low 24-31 [facility] Comment on above: Performed By: #### 5 7021-8 #### MELISA Galvan ([id number]) [facility] () [address] [place] [address] Creatinine [Mass/Vol] 0.70 mg/dL Normal 0.40-1.60 [facility] Comment on above: Performed By: #### 5 7021-8 #### MELISA Galvan ([id number]) [facility] () [address] [place] [address] GFR/1.73 sq M.predicted MDRD (S/P/Bld) [Vol rate/Area] mL/min/{1.73_m2} Normal >60 [facility] Comment on above: Result Comment: Calc ulations of estimated GFR are performed using the 2020 CKD-EPI Study Refit equation without the race variable for the IDMS-Traceable creatinine methods. https://jasn.asnjournals.org/content/early//ASN.52383336 88 Performed By: #### 5 7021-8 #### MELISA Galvan ([id number]) [facility] () [address] [place] [address] Glucose [Mass/Vol] 149 mg/dL High 65-99 [facility] Comment on above: Performed By: #### 5 7021-8 #### MELISA Galvan ([id number]) [facility] () [address] [place] [address] Potassium [Moles/Vol] 3.7 mmol/L Normal 3.4-5.1 [facility] Comment on above: Performed By: #### 5 7021-8 #### MELISA Galvan ([id number]) [facility] () [address] [place] [address] Sodium [Moles/Vol] 137 mmol/L Normal 133-145 [facility] Comment on above: Performed By: #### 5 7021-8 #### MELISA Galvan ([id number]) [facility] () [address] [place] [address] Urea nitrogen [Mass/Vol] 5 mg/dL Low 8-25 [facility] Comment on above: Performed By: #### 5 7021-8 #### MELISA Galvan ([id number]) [facility] () [address] [place] [address] CBC panel Auto (Bld)on 03-06 Erythrocyte distribution width (RBC) [Ratio] 12.9 % 11.5 - 14.5 % [facility] Hematocrit (Bld) [Volume fraction] 35.1 % Low 36.0 - 46.0 % [facility] Hemoglobin (Bld) [Mass/Vol] 11.8 g/dL Low 12.0 - 16.0 g/dL [facility] Interpretation and review of laboratory results Abnormal [facility] MCH (RBC) [Entitic mass] 30.8 pg 26.0 - 34.0 pg [facility] MCHC (RBC) [Mass/Vol] 33.6 g/dL 32.0 - 36.0 g/dL [facility] MCV (RBC) [Entitic vol] 92 fL 80 - 100 fL [facility] Nucleated RBC/100 WBC (Bld) [Ratio] 0.0 % [facility] Platelets (Bld) [#/Vol] 179 10*3/uL [facility] RBC (Bld) [#/Vol] 3.83 10*6/uL Low [facility] WBC (Bld) [#/Vol] 5.5 10*3/uL [facility] Erythrocyte distribution width (RBC) [Ratio] 12.9 % Normal 11.5-14.5 [facility] Comment on above: Performed By: #### 2 4356-8 #### MELISA Galvan ([id number]) [facility] () [address] [place] [address] Hematocrit (Bld) [Volume fraction] 35.1 % Low 36.0-46.0 [facility] Comment on above: Performed By: #### 2 4356-8 #### MELISA Galvan (59256) [facility] () [address] [place] [address] Hemoglobin (Bld) [Mass/Vol] 11.8 g/dL Low 12.0-16.0 [facility] Comment on above: Performed By: #### 2 4356-8 #### MELISA Galvan ([id number]) [facility] () [address] [place] [address] MCH (RBC) [Entitic mass] 30.8 pg Normal 26.0-34.0 [facility] Comment on above: Performed By: #### 2 4356-8 #### MELISA Galvan ([id number]) [facility] () [address] [place] [address] MCHC (RBC) [Mass/Vol] 33.6 g/dL Normal 32.0-36.0 [facility] Comment on above: Performed By: #### 2 4356-8 #### MELISA Galvan ([id number]) [facility] () [address] [place] [address] MCV (RBC) [Entitic vol] 92 fL Normal 80-100 [facility] Comment on above: Performed By: #### 2 4356-8 #### MELISA Galvan ([id number]) [facility] () [address] [place] [address] Nucleated RBC/100 WBC (Bld) [Ratio] 0.0 /100 WBCs Normal 0.0-0.0 [facility] Comment on above: Performed By: #### 2 4356-8 #### MELISA Galvan ([id number]) [facility] () [address] [place] [address] Platelets (Bld) [#/Vol] 179 x10*3/uL Normal 150-450 [facility] Comment on above: Performed By: #### 2 4356-8 #### MELISA Galvan ([id number]) [facility] () [address] [place] [address] RBC (Bld) [#/Vol] 3.83 x10*6/uL Low 4.00-5.20 [facility] Comment on above: Performed By: #### 2 4356-8 #### MELISA Galvan ([id number]) [facility] () [address] [place] [address] WBC (Bld) [#/Vol] 5.5 x10*3/uL Normal 4.4-11.3 [facility] Comment on above: Performed By: #### 2 4356-8 #### MELISA Galvan ([id number]) [facility] () [address] [place] [address] Glucose Test strip manual (B ld) [Mass/Vol]on 03-06-2023 Glucose [Mass/Vol] 119 mg/dL High 74-99 [facility] Comment on above: Performed By: #### 5 7021-8 #### MELISA Galvan ([id number]) [facility] () [address] [place] [address] Glucose [Mass/Vol] 103 mg/dL High 74 - 99 mg/dL [facility] Interpretation and review of laboratory results Abnormal [facility] Glucose [Mass/Vol] 103 mg/dL High 74-99 [facility] Comment on above: Performed By: #### 5 7021-8 #### MELISA Galvan ([id number]) [facility] () [address] [place] [address] Glucose [Mass/Vol] 119 mg/dL High 74 - 99 mg/dL [facility] Interpretation and review of laboratory results Abnormal [facility] Glucose [Mass/Vol] 119 mg/dL High 74-99 [facility] Comment on above: Performed By: #### 5 7021-8 #### MELISA Galvan ([id number]) [facility] () [address] [place] [address] Glucose [Mass/Vol] 108 mg/dL High 74 - 99 mg/dL [facility] Interpretation and review of laboratory results Abnormal [facility] Glucose [Mass/Vol] 108 mg/dL High 74-99 [facility] Comment on above: Performed By: #### 5 7021-8 #### MELISA Galvan ([id number]) [facility] () [address] [place] [address] Glucose [Mass/Vol] 113 mg/dL High 74 - 99 mg/dL [facility] Interpretation and review of laboratory results Abnormal [facility] Glucose [Mass/Vol] 113 mg/dL High 74-99 [facility] Comment on above: Performed By: #### 5 7021-8 #### MELISA Galvan ([id number]) [facility] () [address] [place] [address] Glucose [Mass/Vol] 152 mg/dL High 74 - 99 mg/dL [facility] Interpretation and review of laboratory results Abnormal [facility] Glucose [Mass/Vol] 152 mg/dL High 74-99 [facility] Comment on above: Performed By: #### 2 4356-8 #### MELISA Galvan ([id number]) [facility] () [address] [place] [address] Magnesiumon 03-06-2023 Magnesium [Mass/Vol] 1.70 mg/dL 1.60 - 3.10 mg/dL [facility] Magnesium [Mass/Vol] 1.70 mg/dL Normal 1.60-3.10 [facility] Comment on above: Performed By: #### 2 4356-8 #### MELISA Galvan ([id number]) [facility] () [address] [place] [address] No Panel Informationon 03-06 Interpretation and review of laboratory results Normal [facility] Phosphateon 03-06-2023 Phosphate [Mass/Vol] 3.0 mg/dL Normal 2.5-4.5 [facility] Comment on above: Performed By: #### 2 4356-8 #### MELISA POOLESarwat Galvan ([id number]) [facility] (MW) [address] [place] [address] Phosphoruson 03-06-2023 Phosphate [Mass/Vol] 3.0 mg/dL 2.5 - 4.5 mg/dL [facility] XR CHEST 1 VIEWon 03-06-2023 XR CHEST 1 VIEW Interpreted By: Sara Zarate, STUDY: XR CHEST 1 VIEW; 03/06/2023 7:32 am INDICATION: Signs/Symptoms:post op COMPARISON: None ACCESSION NUMBER(S): [id number] ORDERING CLINICIAN: JASON FOSTER TECHNIQUE: Frontal and [...] Sara Zarate 03/06/2023 1:48 PM Dictation workstation: [id number] Normal [facility] XR Chest Single viewon 03-06 Appliance positioning as noted above. No consolidation. Signed by: Sara Zarate 03/06/2023 1:48 PM Dictation workstation: [id number] MMODAL Interpreted By: Sara Zarate, STUDY: XR CHEST 1 VIEW; 03/06/2023 7:32 am INDICATION: Signs/Symptoms:post op COMPARISON: None ACCESSION NUMBER(S): [id number] ORDERING CLINICIAN: JASON FOSTER TECHNIQUE: Frontal and [...] INDICATION: Signs/Symptoms:post op COMPARISON: None ACCESSION NUMBER(S): [id number] ORDERING CLINICIAN: JASON FOSTER TECHNIQUE: Frontal and [...] Sara Zarate 03/06/2023 1:48 PM Dictation workstation: [id number] [facility] Work Phone: Radiology Study observation (narrative) [facility] Work Phone: XR Chest Single viewOrdered By: Sara Zarate on 03-06-2023 [facility] Work Phone: Basic metabolic 2000 panelon 03-05-2023 Anion gap [Moles/Vol] 13 mmol/L NINF - 19 mmol/L [facility] Calcium [Mass/Vol] 8.0 mg/dL Low 8.5 - 10.4 mg/dL [facility] Chloride [Moles/Vol] 107 mmol/L 97 - 107 mmol/L [facility] CO2 [Moles/Vol] 18 mmol/L Low 24 - 31 mmol/L [facility] Creatinine [Mass/Vol] 0.70 mg/dL 0.40 - 1.60 mg/dL [facility] eGFR - PINF [facility] Comment on above: Calculations of jessica mated GFR are performed using the 2020 CKD-EPI Study Refit equation without the race variable for the IDMS-Traceable creatinine methods. https://jasn.asnjournals.org/content//ASN.50289949 88 Glucose [Mass/Vol] 107 mg/dL High 65 - 99 mg/dL [facility] Interpretation and review of laboratory results Abnormal [facility] Potassium [Moles/Vol] 3.6 mmol/L 3.4 - 5.1 mmol/L [facility] Sodium [Moles/Vol] 138 mmol/L 133 - 145 mmol/L [facility] Urea nitrogen [Mass/Vol] 10 mg/dL 8 - 25 mg/dL [facility] Anion gap [Moles/Vol] 13 mmol/L Normal <=19 [facility] Comment on above: Performed By: #### 2 4356-8 #### MELISA Galvan ([id number]) [facility] () [address] [place] [address] Calcium [Mass/Vol] 8.0 mg/dL Low 8.5-10.4 [facility] Comment on above: Performed By: #### 2 4356-8 #### MELISA Galvan ([id number]) [facility] () [address] [place] [address] Chloride [Moles/Vol] 107 mmol/L Normal 97-107 [facility] Comment on above: Performed By: #### 2 4356-8 #### MELISA Galvan (61043) [facility] () [address] [place] [address] CO2 [Moles/Vol] 18 mmol/L Low 24-31 [facility] Comment on above: Performed By: #### 2 4356-8 #### MELISA Galvan ([id number]) [facility] () [address] [place] [address] Creatinine [Mass/Vol] 0.70 mg/dL Normal 0.40-1.60 [facility] Comment on above: Performed By: #### 2 4356-8 #### MELISA Galvan ([id number]) [facility] () [address] [place] [address] GFR/1.73 sq M.predicted MDRD (S/P/Bld) [Vol rate/Area] mL/min/{1.73_m2} Normal >60 [facility] Comment on above: Result Comment: Calc ulations of estimated GFR are performed using the 2020 CKD-EPI Study Refit equation without the race variable for the IDMS-Traceable creatinine methods. https://jasn.asnjournals.org/content//ASN.13177977 88 Performed By: #### 2 4356-8 #### MELISA Galvan (66524) [facility] () [address] [place] [address] Glucose [Mass/Vol] 107 mg/dL High 65-99 [facility] Comment on above: Performed By: #### 2 4356-8 #### MELISA Galvan (92327) [facility] () [address] [place] [address] Potassium [Moles/Vol] 3.6 mmol/L Normal 3.4-5.1 [facility] Comment on above: Performed By: #### 2 4356-8 #### MELISA Galvan (41895) [facility] () [address] [place] [address] Sodium [Moles/Vol] 138 mmol/L Normal 133-145 [facility] Comment on above: Performed By: #### 2 4356-8 #### MELISA Galvan ([id number]) [facility] () [address] [place] [address] Urea nitrogen [Mass/Vol] 10 mg/dL Normal 8-25 [facility] Comment on above: Performed By: #### 2 4356-8 #### MELISA Galvan (99445) [facility] () [address] [place] [address] CBC panel Auto (Bld)on 03-05 Erythrocyte distribution width (RBC) [Ratio] 12.6 % 11.5 - 14.5 % [facility] Hematocrit (Bld) [Volume fraction] 34.8 % Low 36.0 - 46.0 % [facility] Hemoglobin (Bld) [Mass/Vol] 11.9 g/dL Low 12.0 - 16.0 g/dL [facility] Interpretation and review of laboratory results Abnormal [facility] MCH (RBC) [Entitic mass] 31.2 pg 26.0 - 34.0 pg [facility] MCHC (RBC) [Mass/Vol] 34.2 g/dL 32.0 - 36.0 g/dL [facility] MCV (RBC) [Entitic vol] 91 fL 80 - 100 fL [facility] Nucleated RBC/100 WBC (Bld) [Ratio] 0.0 % [facility] Platelets (Bld) [#/Vol] 182 10*3/uL [facility] RBC (Bld) [#/Vol] 3.82 10*6/uL Low [facility] WBC (Bld) [#/Vol] 8.4 10*3/uL [facility] Erythrocyte distribution width (RBC) [Ratio] 12.6 % Normal 11.5-14.5 [facility] Comment on above: Performed By: #### 5 8410-2 #### MELISA Galvan (09365) [facility] () [address] [place] [address] Hematocrit (Bld) [Volume fraction] 34.8 % Low 36.0-46.0 [facility] Comment on above: Performed By: #### 5 8410-2 #### MELISA Galvan (87302) [facility] () [address] [place] [address] Hemoglobin (Bld) [Mass/Vol] 11.9 g/dL Low 12.0-16.0 [facility] Comment on above: Performed By: #### 5 8410-2 #### MELISA Galvan (76763) [facility] () [address] [place] [address] MCH (RBC) [Entitic mass] 31.2 pg Normal 26.0-34.0 [facility] Comment on above: Performed By: #### 5 8410-2 #### MELISA Galvan ([id number]) [facility] () [address] [place] [address] MCHC (RBC) [Mass/Vol] 34.2 g/dL Normal 32.0-36.0 [facility] Comment on above: Performed By: #### 5 8410-2 #### MELISA Galvan (77508) [facility] () [address] [place] [address] MCV (RBC) [Entitic vol] 91 fL Normal 80-100 [facility] Comment on above: Performed By: #### 5 8410-2 #### MELIAS Galvan (47360) [facility] () [address] [place] [address] Nucleated RBC/100 WBC (Bld) [Ratio] 0.0 /100 WBCs Normal 0.0-0.0 [facility] Comment on above: Performed By: #### 5 8410-2 #### MELISA Galvan (02536) [facility] () [address] [place] [address] Platelets (Bld) [#/Vol] 182 x10*3/uL Normal 150-450 [facility] Comment on above: Performed By: #### 5 8410-2 #### MELISA Galvan ([id number]) [facility] () [address] [place] [address] RBC (Bld) [#/Vol] 3.82 x10*6/uL Low 4.00-5.20 [facility] Comment on above: Performed By: #### 5 8410-2 #### MELISA Galvan ([id number]) [facility] () [address] [place] [address] WBC (Bld) [#/Vol] 8.4 x10*3/uL Normal 4.4-11.3 [facility] Comment on above: Performed By: #### 5 8410-2 #### MELISA Galvan (38652) [facility] () [address] [place] [address] Glucose Test strip manual (B ld) [Mass/Vol]on 03-05-2023 Glucose [Mass/Vol] 176 mg/dL High 74 - 99 mg/dL [facility] Interpretation and review of laboratory results Abnormal [facility] Glucose [Mass/Vol] 176 mg/dL High 74-99 [facility] Comment on above: Performed By: #### 2 4356-8 #### MELISA Galvan (01045) [facility] () [address] [place] [address] Glucose [Mass/Vol] 177 mg/dL High 74 - 99 mg/dL [facility] Interpretation and review of laboratory results Abnormal [facility] Glucose [Mass/Vol] 177 mg/dL High 74-99 [facility] Comment on above: Performed By: #### 2 4356-8 #### MELISA Galvan (19642) [facility] () [address] [place] [address] Glucose [Mass/Vol] 111 mg/dL High 74 - 99 mg/dL [facility] Interpretation and review of laboratory results Abnormal [facility] Glucose [Mass/Vol] 111 mg/dL High 74-99 [facility] Comment on above: Performed By: #### 2 4356-8 #### MELISA Galvan ([id number]) [facility] () [address] [place] [address] Magnesiumon 03-05-2023 Magnesium [Mass/Vol] 1.70 mg/dL 1.60 - 3.10 mg/dL [facility] Magnesium [Mass/Vol] 1.70 mg/dL Normal 1.60-3.10 [facility] Comment on above: Performed By: #### 2 4356-8 #### MELISA Galvan ([id number]) [facility] () [address] [place] [id number] No Panel Informationon 03-05 Interpretation and review of laboratory results Normal [facility] Phosphateon 03-05-2023 Phosphate [Mass/Vol] 4.3 mg/dL Normal 2.5-4.5 [facility] Comment on above: Performed By: #### 2 4356-8 #### MELISA Galvan (22720) [facility] () [address] [place], [place] [address] Phosphoruson 03-05-2023 Phosphate [Mass/Vol] 4.3 mg/dL 2.5 - 4.5 mg/dL [facility] Surgical pathology studyon 0 03-05-2023 Surgical pathology study Pathology report.total SEE COMMENT Surgical Pathology Case: [id number] Authorizing Provider: Sherry Magaña MD Collected: 03/05/2023 1125 Ordering Location: [facility] Received: 03/05/2023 1314 Center OR [...] sectioned and entirely submitted in 1 cassette. 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] VERAB/VERIFY ABORHon 024 ABO group Nom (Bld) O Normal [facility] Comment on above: Performed By: #### V ERAB #### MELISA Galvan ([id number]) [facility] ([facility]) [address] [place] [address] US D Ag Ql (Bld) Positive [facility] Comment on above: Performed By: #### V ERAB #### MELISA Galvan ([id number]) [facility] ([facility]) [address] [place], [place] [id number] [place] XR CHEST 1 VIEWon 03-05-2023 XR CHEST 1 VIEW Interpreted By: Baldomero Hendrickson, STUDY: XR CHEST 1 VIEW; 03/05/2023 3:11 pm INDICATION: CLINICAL INFORMATION: Signs/Symptoms:NG tube placement confirmation. COMPARISON: 03/05/2019 at 745 hours ACCESSION NUMBER(S): [id number] ORDERING CLINICIAN: DESMOND TIRADO TECHNIQUE: Portable chest [...] Baldomero Hendrickson 03/05/2023 3:31 PM Dictation workstation: [id number] [facility] XR CHEST 1 VIEW Interpreted By: Nya Ahmadi, STUDY: XR CHEST 1 VIEW 03/05/2023 7:51 am INDICATION: Signs/Symptoms:conf irm line placement COMPARISON: None available. ACCESSION NUMBER(S): [id number] ORDERING CLINICIAN: SERENA GEORGE TECHNIQUE: AP erect view of the chest FINDINGS: Right arm PICC line terminates in the SVC. There is no pneumothorax. The heart, mediastinum, and lungs are normally visualized. IMPRESSION: Right arm PICC line terminating in SVC without pneumothorax. No acute cardiopulmonary disease. Signed by: Nya Ahmadi 03/05/2023 7:54 AM Dictation workstation: [id number] [facility] XR Chest Single viewon 03-05 1. Status post NG tube insertion with the tube extending into the left upper quadrant. 2. Stable appearance of the PICC line. 3. No infiltrates are identified. MACRO: none Signed by: Baldomero Hendrickson 03/05/2023 3:31 PM Dictation workstation: [id number] [facility] MMODAL Interpreted By: Baldomero Hendrickson, STUDY: XR CHEST 1 VIEW; 03/05/2023 3:11 pm INDICATION: CLINICAL INFORMATION: Signs/Symptoms:NG tube placement confirmation. COMPARISON: 03/05/2019 at 745 hours ACCESSION NUMBER(S): [id number] ORDERING CLINICIAN: DESMOND TIRADO TECHNIQUE: Portable chest [...] COMPARISON: 03/05/2019 at 745 hours ACCESSION NUMBER(S): [id number] ORDERING CLINICIAN: DESMOND TIRADO TECHNIQUE: Portable chest [...] Baldomero Hendrickson 03/05/2023 3:31 PM Dictation workstation: [id number] [facility] Work Phone: Radiology Study observation (narrative) [facility] Work Phone: Right arm PICC line terminating in SVC without pneumothorax. No acute cardiopulmonary disease. Signed by: Nya Ahmadi 03/05/2023 7:54 AM Dictation workstation: [id number] MMODAL Interpreted By: Nya Ahmadi, STUDY: XR CHEST 1 VIEW 03/05/2023 7:51 am INDICATION: Signs/Symptoms:conf irm line placement COMPARISON: None available. ACCESSION NUMBER(S): [id number] ORDERING CLINICIAN: SERENA GEORGE TECHNIQUE: AP erect view of the chest FINDINGS: Right arm PICC line terminates in the SVC. There is no pneumothorax. The heart, mediastinum, and lungs are normally visualized. [facility] MMODAL Nya Ahmadi MD - 03/05/2023 Interpreted By: Nya Ahmadi, STUDY: XR CHEST 1 VIEW 03/05/2023 7:51 am INDICATION: Signs/Symptoms:conf irm line placement COMPARISON: None available. ACCESSION NUMBER(S): [id number] ORDERING CLINICIAN: SERENA GEORGE TECHNIQUE: AP erect view of the chest FINDINGS: Right arm PICC line terminates in the SVC. There is no pneumothorax. The heart, mediastinum, and lungs are normally visualized. IMPRESSION: Right arm PICC line terminating in SVC without pneumothorax. No acute cardiopulmonary disease. Signed by: Nya Ahmadi 03/05/2023 7:54 AM Dictation workstation: [id number] [facility] Work Phone: Radiology Study observation (narrative) [facility] Work Phone: XR Chest Single viewOrdered By: Baldomero Hendrickson on 03-05-2023 [facility] Work Phone: XR Chest Single viewOrdered By: Nya Ahmadi on 03-05-2023 [facility] Work Phone: Basic metabolic 2000 panelon 03-02-2023 Anion gap [Moles/Vol] 14 mmol/L Normal <=19 [facility] Comment on above: Performed By: #### 2 4321-2 #### MELISA Galvan ([id number]) [facility] () [address] [place] [address] Calcium [Mass/Vol] 9.0 mg/dL Normal 8.5-10.4 [facility] Comment on above: Performed By: #### 2 4321-2 #### MELISA Galvan (60963) [facility] () [address] [place] [address] Chloride [Moles/Vol] 107 mmol/L Normal 97-107 [facility] Comment on above: Performed By: #### 2 4321-2 #### MELISA Galvan (54775) [facility] () [address] [place] [address] CO2 [Moles/Vol] 21 mmol/L Low 24-31 [facility] Comment on above: Performed By: #### 2 4321-2 #### MELISA Galvan (00928) [facility] () [address] [place] [address] Creatinine [Mass/Vol] 0.80 mg/dL Normal 0.40-1.60 [facility] Comment on above: Performed By: #### 2 4321-2 #### MELISA Galvan (01561) [facility] () [address] [place] [address] GFR/1.73 sq M.predicted MDRD (S/P/Bld) [Vol rate/Area] mL/min/{1.73_m2} Normal >60 [facility] Comment on above: Result Comment: Calc ulations of estimated GFR are performed using the 2020 CKD-EPI Study Refit equation without the race variable for the IDMS-Traceable creatinine methods. https://jasn.asnjournals.org/content//ASN.14261561 88 Performed By: #### 2 4321-2 #### MELISA Galvan (56520) [facility] () [address] [place] [address] Glucose [Mass/Vol] 68 mg/dL Normal 65-99 [facility] Comment on above: Performed By: #### 2 4321-2 #### MELISA Galvan (26486) [facility] () [address] [place] [address] Potassium [Moles/Vol] 4.0 mmol/L Normal 3.4-5.1 [facility] Comment on above: Performed By: #### 2 4321-2 #### MELISA Galvan (38133) [facility] () [address] [place] [address] Sodium [Moles/Vol] 142 mmol/L Normal 133-145 [facility] Comment on above: Performed By: #### 2 4321-2 #### MELISA Galvan (60559) [facility] () [address] [place] [address] Urea nitrogen [Mass/Vol] 8 mg/dL Normal 8-25 [facility] Comment on above: Performed By: #### 2 432-2 #### MELISA Galvan (80576) [facility] () [address] [place] [address] Blood type and Indirect anti body screen panel (Bld)on 03-02-2023 ABO group Nom (Bld) O Normal [facility] Comment on above: Performed By: #### 3 4532-2 #### MELISA Galvan ([id number]) [facility] ([facility]) [address] [place] [address] [place] Blood group antibody screen Ql Negative [facility] Comment on above: Performed By: #### 3 4532-2 #### MELISA Galvan ([id number]) [facility] ([facility]) [address] [place] [address] US D Ag Ql (Bld) Positive [facility] Comment on above: Performed By: #### 3 4532-2 #### MELISA Galvan ([id number]) [facility] ([facility]) [address] [place] [address] [place] Staphylococcus aureus.methic illin resistant isolateon 03-02-2023 MRSA isol Org specific cx Ql (Nose) Test: Staphylococcus aureus/MRSA colonization, Culture Specimen Source: Anterior Nares Specimen Type: Swab Specimen Date: 03/02/2023 3:17 PM Result Date: 03/04/2023 7:55 AM Result Status: Final result Abnormal: No Resulting Lab: [facility] [id number] [place] [address] CULTURE No Staphylococcus aureus isolated Normal [facility] Comment on above: Performed By: #### 5 2969-3 #### ALON Johnson ([id number]) [facility] ([facility]) [address] [place] [address] Alanine aminotransferase [En zymatic activity/volume] in Serum or PlasmaOrdered By: Roseline Mejia on 02-13-2023 ALT [Catalytic activity/Vol] 11 U/L Normal 7-52 [facility] Comment on above: Performed By: #### H EPATIC, MG, LIPASE, CMP, CBC #### [facility] [address] [place] [address] [place] Albumin [Mass/volume] in Ser um or Plasma by Bromocresol green (BCG) dye binding methoOrdered By: Roseline Mejia on 02-13-2023 Albumin BCG dye [Mass/Vol] 4.0 g/dL 3.5-5.7 [facility] Alkaline phosphatase [Enzyma tic activity/volume] in Serum or PlasmaOrdered By: Roseline Mejia on 02-13-2023 ALP [Catalytic activity/Vol] 55 U/L Normal 34-104 [facility] Comment on above: Performed By: #### H EPATIC, MG, LIPASE, CMP, CBC #### [facility] [address] [place] [address] [place] Aspartate aminotransferase [ Enzymatic activity/volume] in Serum or PlasmaOrdered By: Roseline Mejia on 02-13-2023 AST [Catalytic activity/Vol] 20 U/L Normal 13-39 [facility] Comment on above: Performed By: #### H EPATIC, MG, LIPASE, CMP, CBC #### [address] Automated basophil %Ordered By: Roseline Mejia on 02-13-2023 Basophils/100 WBC (Bld) 1.2 % Normal . [facility] Comment on above: Performed By: #### H EPATIC, MG, LIPASE, CMP, CBC #### [address] Automated basophil countOrde red By: Roseline Mejia on 02-13-2023 Basophils (Bld) [#/Vol] 0.1 10*3/uL Normal 0.0-0.2 [facility] Comment on above: Result Comment: PERF ORMED BY: [place] [address] PATHOLOGIST [employer] BAUTISTA BAKER M.D. Performed By: #### H EPATIC, MG, LIPASE, CMP, CBC #### [address] Automated blood monocyte cou ntOrdered By: Roseline Mejia on 02-13-2023 Monocytes (Bld) [#/Vol] 0.3 10*3/uL Normal 0.0-0.8 [facility] Comment on above: Performed By: #### H EPATIC, MG, LIPASE, CMP, CBC #### [address] Automated eosinophil %Ordere d By: Roseline Mejia on 02-13-2023 Eosinophils/100 WBC (Bld) 1.7 % Normal . [facility] Comment on above: Performed By: #### H EPATIC, MG, LIPASE, CMP, CBC #### [address] Automated eosinophil countOr dered By: Roseline Mejia on 02-13-2023 Eosinophils (Bld) [#/Vol] 0.1 10*3/uL Normal 0.0-0.45 [facility] Comment on above: Performed By: #### H EPATIC, MG, LIPASE, CMP, CBC #### [address] Automated monocyte %Ordered By: Roseline Mejia on 02-13-2023 Monocytes/100 WBC (Bld) 7.3 % Normal . [facility] Comment on above: Performed By: #### H EPATIC, MG, LIPASE, CMP, CBC #### [address] Automated neutrophil %Ordere d By: Roseline Mejia on 02-13-2023 Neutrophils/100 WBC (Bld) 49.0 % Normal . [facility] Comment on above: Performed By: #### H EPATIC, MG, LIPASE, CMP, CBC #### [address] Automated urine color determ inationOrdered By: Roseline Mejia on 02-13-2023 Color (U) Yellow Normal Yellow [facility] Comment on above: Order Comment: Name Collection Type:: Clean-Voided Midstream Performed By: #### A DDONUAPLUS, UHCG, CUU #### [address] Basic Metabolic Panelon 01-17 Creatinine Clr Calc Pharmacy 119.02 Normal [facility] Comment on above: Performed By: #### H EPATIC, MG, LIPASE, CMP, CBC #### [address] GFR/1.73 sq M.predicted MDRD (S/P/Bld) [Vol rate/Area] mL/min/{1.73_m2} Normal [facility] Comment on above: Performed By: #### H EPATIC, MG, LIPASE, CMP, CBC #### [address] Bilirubin Test strip Ql (U)O rdered By: Roseline Mejia on 02-13-2023 Bilirubin Ql (U) Negative Negative [facility] Bilirubin.direct [Mass/volum e] in Serum or PlasmaOrdered By: Roseline Mejia on 02-13-2023 Bilirubin.direct [Mass/Vol] 0.10 mg/dL 0.03-0.18 [facility] Bilirubin.total [Mass/volume ] in Serum or PlasmaOrdered By: Roseline Mejia on 02-13-2023 Bilirubin [Mass/Vol] 0.5 mg/dL Normal 0.3-1.0 [facility] Comment on above: Performed By: #### H EPATIC, MG, LIPASE, CMP, CBC #### [facility] [address] abdomen pelvis w conon CT abdomen pelvis w con [facility] [place] [address] [place] [address] CT Scan Report Signed Patient: Abbey Garcia MR#: [id number] : 1990 Acct:[id number] Age/Sex: 32 / F ADM Date: 02/13/23 Loc: ER Room: Type: [facility] ER Attending Dr: Copies to: DO [...] Jason Palomo M.D.02/13/2023 3:42 PM Dictation Location: [place] [address] Transcribed By: [facility] 02/13/23 1542 Dictated By: Jason Palomo DO 02/13/23 1537 Signed By: 02/13/23 1542 Normal [facility] Calcium [Mass/volume] in Ser um or PlasmaOrdered By: Roseline Mejia on 02-13-2023 Calcium [Mass/Vol] 8.8 mg/dL Normal 8.6-10.3 [facility] Comment on above: Performed By: #### H EPATIC, MG, LIPASE, CMP, CBC #### [address] Carbon dioxide, total [Moles /volume] in Serum or PlasmaOrdered By: Roseline Mejia on 02-13-2023 CO2 [Moles/Vol] 21.2 mmol/L Normal 21.0-31.0 [facility] Comment on above: Performed By: #### H EPATIC, MG, LIPASE, CMP, CBC #### [place] [address] [place] Chloride [Moles/volume] in S elder or PlasmaOrdered By: Roseline Mejia on 02-13-2023 Chloride [Moles/Vol] 109 mmol/L High 98-107 [facility] Comment on above: Performed By: #### H EPATIC, MG, LIPASE, CMP, CBC #### [facility] [address] [place] [address] [place] Complete Blood Count Auto Di ffon 02-13-2023 Mean Corpuscular HGB Conc 34.9 g/dL Normal 32.0-35.0 [facility] Comment on above: Performed By: #### H EPATIC, MG, LIPASE, CMP, CBC #### [facility] [address] [place] [address] [place] Monocytes/100 WBC (Bld) 17.39 % Normal 0.00-20.00 [facility] Comment on above: Performed By: #### H EPATIC, MG, LIPASE, CMP, CBC #### [address] NRBC% 0.2 /100{WBC} Normal 0-0.5 [facility] Comment on above: Performed By: #### H EPATIC, MG, LIPASE, CMP, CBC #### [address] Creatinine [Mass/volume] in Serum or PlasmaOrdered By: Roseline Mejia on 02-13-2023 Creatinine [Mass/Vol] 0.73 mg/dL Normal 0.60-1.20 [facility] Comment on above: Performed By: #### H EPATIC, MG, LIPASE, CMP, CBC #### [address] Erythrocyte distribution wid th [Ratio] by Automated countOrdered By: Roseline Mejia on 02-13-2023 Erythrocyte distribution width (RBC) [Ratio] 13.0 % Normal 11.9-15.3 [facility] Comment on above: Performed By: #### H EPATIC, MG, LIPASE, CMP, CBC #### [address] Erythrocytes [#/volume] in B lood by Automated countOrdered By: Roseline Mejia on 02-13-2023 RBC (Bld) [#/Vol] 4.07 10*6/uL Normal 3.60-5.00 [facility] Comment on above: Performed By: #### H EPATIC, MG, LIPASE, CMP, CBC #### [place] [address] [place] Glucose [Mass/volume] in Ser um or PlasmaOrdered By: Roseline Mejia on 02-13-2023 Glucose [Mass/Vol] 85 mg/dL Normal 70-100 [facility] Comment on above: ADA recommended refe rence rangeRandom Glucose Reference Range is dependent on time and content of last meal. Glucose of more than 200 mg/dL in a nonstressed, ambulatory subject supports the diagnosis of Diabetes Mellitus. Result Comment: [facility] [place] Glucose Reference Range is dependent on time and content of last meal. Glucose of more than 200 mg/dL in a nonstressed, ambulatory subject supports the diagnosis of Diabetes Mellitus. ADA recommended reference range Performed By: #### H EPATIC, MG, LIPASE, CMP, CBC #### [address] HCG ( test) IA.rapi d Ql (U)Ordered By: Roseline Mejia on 02-13-2023 HCG ( test) Ql (U) Negative [facility] HCG,Urineon 02-13-2023 Beta HCG ( test) Ql (U) Negative Normal [facility] Comment on above: Order Comment: Name Collection Type:: Clean-Voided Midstream Result Comment: PERF ORMED BY: [place] [address] PATHOLOGIST [employer] BAUTISTA BAKER M.D. Performed By: #### A DDONUAPLUS, CG, CUU #### [address] Hematocrit [Volume Fraction] of Blood by Automated countOrdered By: Roseline Mejia on 02-13-2023 Hematocrit (Bld) [Volume fraction] 36.3 % Normal 34.0-46.4 [facility] Comment on above: Performed By: #### H EPATIC, MG, LIPASE, CMP, CBC #### [address] Hemoglobin [Mass/volume] in BloodOrdered By: Roseline Mejia on 02-13-2023 Hemoglobin (Bld) [Mass/Vol] 12.7 g/dL Normal 11.8-15.4 [facility] Comment on above: Performed By: #### H EPATIC, MG, LIPASE, CMP, CBC #### [address] Hepatic Panelon 02-13-2023 Albumin [Mass/Vol] 4.0 g/dL Normal 3.5-5.7 [facility] Comment on above: Performed By: #### H EPATIC, MG, LIPASE, CMP, CBC #### [address] Bilirubin,Indirect 0.4 mg/dL Normal [facility] Comment on above: Performed By: #### H EPATIC, MG, LIPASE, CMP, CBC #### [address] Bilirubin.indirect [Mass/Vol] 0.10 mg/dL Normal 0.03-0.18 [facility] Comment on above: Performed By: #### H EPATIC, MG, LIPASE, CMP, CBC #### [address] Ketones Auto test strip (U) [Mass/Vol]Ordered By: Roseline Mejia on 02-13-2023 Ketones (U) [Mass/Vol] Trace Negative [facility] Leukocytes [#/volume] correc darvin for nucleated erythrocytes in Blood by Automated counOrdered By: Roseline Mejia on 02-13-2023 WBC corrected for nucl RBC Auto (Bld) [#/Vol] 4.2 10*3/uL 3.8-11.6 [facility] Leukocytes [#/volume] in Blo od by Automated countOrdered By: Roseline Mejia on 02-13-2023 WBC (Bld) [#/Vol] 4.2 10*3/uL Normal 3.8-11.6 [facility] Comment on above: Performed By: #### H EPATIC, MG, LIPASE, CMP, CBC #### [facility] [address] [place] [address] Lipase [Enzymatic activity/v olume] in Serum or PlasmaOrdered By: Roseline Mejia on 02-13-2023 Lipase [Catalytic activity/Vol] 42.0 U/L Normal 11.0-82.0 [facility] Comment on above: Result Comment: PERF ORMED BY: [place] [address] PATHOLOGIST [employer] BAUTISTA BAKER M.D. Performed By: #### H EPATIC, MG, LIPASE, CMP, CBC #### [address] Lymphocytes [#/volume] in Bl ood by Automated countOrdered By: Roseline Mejia on 02-13-2023 Lymphocytes (Bld) [#/Vol] 1.7 10*3/uL Normal 1.00-4.8 [facility] Comment on above: Performed By: #### H EPATIC, MG, LIPASE, CMP, CBC #### [address] Lymphocytes/100 leukocytes i n Blood by Automated countOrdered By: Roseline Mejia on 02-13-2023 Lymphocytes/100 WBC (Bld) 40.8 % Normal . [facility] Comment on above: Performed By: #### H EPATIC, MG, LIPASE, CMP, CBC #### [address] MCH [Entitic mass] by Automa darvin countOrdered By: Roseline Mejia on 02-13-2023 MCH (RBC) [Entitic mass] 31.1 pg Normal 24.7-34.3 [facility] Comment on above: Performed By: #### H EPATIC, MG, LIPASE, CMP, CBC #### [address] MCHC Auto (RBC) [Mass/Vol]Or dered By: Roseline Mejia on 02-13-2023 MCHC (RBC) [Mass/Vol] 34.9 g/dL 32.0-35.0 [facility] MCV [Entitic volume] by Auto mated countOrdered By: Roseline Mejia on 02-13-2023 MCV (RBC) [Entitic vol] 89.2 fL Normal 80-100 [facility] Comment on above: Performed By: #### H EPATIC, MG, LIPASE, CMP, CBC #### [place] [address] [place] Monocyte distribution width [Entitic volume] in Blood by AutomatedOrdered By: Roseline Mejia on 02-13-2023 Monocyte distribution width Auto (Bld) [Entitic vol] 17.39 % 0.00-20.00 [facility] Neutrophils [#/volume] in Bl ood by Automated countOrdered By: Roseline Mejia on 02-13-2023 Neutrophils (Bld) [#/Vol] 2.0 10*3/uL Normal 1.8-7.7 [facility] Comment on above: Performed By: #### H EPATIC, MG, LIPASE, CMP, CBC #### [facility] [address] Nitrite Test strip Ql (U)Ord ered By: Roseline Mejia on 02-13-2023 Nitrite Ql (U) Negative Negative [facility] No Panel InformationOrdered By: Roseline Mejia on 02-13-2023 Estimated GFR (CKD-EPI) > 60.0 mL/Min [facility] Creatinine Clearance (Chem 119.02 [facility] Nucleated erythrocytes [Pres ence] in Blood by Automated countOrdered By: Roseline Mejia on 02-13-2023 Nucleated RBC Auto Ql (Bld) 0.2 /100{WBC} 0-0.5 [facility] Platelet mean volume [Entiti c volume] in Blood by Automated countOrdered By: Roseline Mejia on 02-13-2023 Platelet mean volume (Bld) [Entitic vol] 8.8 fL Normal 6.3-10.7 [facility] Comment on above: Performed By: #### H EPATIC, MG, LIPASE, CMP, CBC #### [facility] [address] [place] [address] [place] Platelets [#/volume] in Bloo d by Automated countOrdered By: Roseline Mejia on 02-13-2023 Platelets (Bld) [#/Vol] 288 10*3/uL Normal 150-450 [facility] Comment on above: Performed By: #### H EPATIC, MG, LIPASE, CMP, CBC #### [address] Potassium [Moles/volume] in Serum or PlasmaOrdered By: Roseline Mejia on 02-13-2023 Potassium [Moles/Vol] 3.7 mmol/L Normal 3.5-5.1 [facility] Comment on above: Performed By: #### H EPATIC, MG, LIPASE, CMP, CBC #### [address] Protein Auto test strip (U) [Mass/Vol]Ordered By: Roseline Mejia on 02-13-2023 Protein (U) [Mass/Vol] Negative Negative [facility] Protein [Mass/volume] in Ser um or PlasmaOrdered By: Roseline Mejia on 02-13-2023 Protein [Mass/Vol] 6.9 g/dL Normal 6.4-8.9 [facility] Comment on above: Performed By: #### H EPATIC, MG, LIPASE, CMP, CBC #### [address] Serum globulin measurement b y calculation (mass/volume)Ordered By: Roseline Mejia on 02-13-2023 Globulin (S) [Mass/Vol] 2.9 g/dL [facility] Comment on above: Performed By: #### H EPATIC, MG, LIPASE, CMP, CBC #### [address] Serum or plasma albumin/glob ulin mass ratioOrdered By: Roseline Mejia on 02-13-2023 Albumin/Globulin [Mass ratio] 1.4 {ratio} [facility] Comment on above: Performed By: #### H EPATIC, MG, LIPASE, CMP, CBC #### [address] Serum or plasma anion gap de terminationOrdered By: Roseline Mejia on 02-13-2023 Anion gap [Moles/Vol] 10.5 mmol/L Normal 6.0-15.0 [facility] Comment on above: Performed By: #### H EPATIC, MG, LIPASE, CMP, CBC #### [facility] [address] Serum or plasma non-glucuron idated bilirubin measurement (mass/volume)Ordered By: Roseline Mejia on 02-13-2023 Bilirubin.indirect [Mass/Vol] 0.4 mg/dL [facility] Sodium [Moles/volume] in Ser um or PlasmaOrdered By: Roseline Mejia on 02-13-2023 Sodium [Moles/Vol] 137 mmol/L Normal 136-145 [facility] Comment on above: Performed By: #### H EPATIC, MG, LIPASE, CMP, CBC #### [address] Specific gravity Auto test s trip (U) [Rel density]Ordered By: Roseline Mejia on 02-13-2023 Specific gravity (U) [Rel density] 1.017 1.001-1.030 [facility] Urea nitrogen [Mass/volume] in Serum or PlasmaOrdered By: Roseline Mejia on 02-13-2023 Urea nitrogen [Mass/Vol] 10 mg/dL Normal 7-25 [facility] Comment on above: Performed By: #### H EPATIC, MG, LIPASE, CMP, CBC #### [address] Urinalysison 02-13-2023 Appearance (U) Clear Normal Clear [facility] Comment on above: Order Comment: Name Collection Type:: Clean-Voided Midstream Performed By: #### A DDONUAPLUS, UHCG, CUU #### [facility] [address] Bilirubin,Urine Negative Normal Negative [facility] Comment on above: Order Comment: Name Collection Type:: Clean-Voided Midstream Performed By: #### A DDONUAPLUS, UHCG, CUU #### [address] Glucose Ql (U) Normal Normal Normal [facility] Comment on above: Order Comment: Name Collection Type:: Clean-Voided Midstream Performed By: #### A DDONUAPLUS, UHCG, CUU #### [place] [address] [place] Ketones Ql (U) Trace High Negative [facility] Comment on above: Order Comment: Name Collection Type:: Clean-Voided Midstream Performed By: #### A DDONUAPLUS, UHCG, CUU #### [address] Leukocyte esterase Test strip Ql (U) Negative Normal Negative [facility] Comment on above: Order Comment: Name Collection Type:: Clean-Voided Midstream Performed By: #### A DDONUAPLUS, UHCG, CUU #### [place] [address] [place] Nitrite,Urine Negative Normal Negative [facility] Comment on above: Order Comment: Name Collection Type:: Clean-Voided Midstream Performed By: #### A DDONUAPLUS, UHCG, CUU #### [place] [address] [place] Occult Blood,Urine Negative Normal Negative [facility] Comment on above: Order Comment: Name Collection Type:: Clean-Voided Midstream Performed By: #### A DDONUAPLUS, UHCG, CUU #### [place] [address] [place] Protein,Urine Negative Normal Negative [facility] Comment on above: Order Comment: Name Collection Type:: Clean-Voided Midstream Performed By: #### A DDONUAPLUS, UHCG, CUU #### [place] [address] [place] Specificy [place],Urine 1.017 Normal 1.001-1.030 [facility] Comment on above: Order Comment: Name Collection Type:: Clean-Voided Midstream Performed By: #### A DDONUAPLUS, UHCG, CUU #### [place] [address] [place] Urobilinogen,Urine Normal Normal Normal [facility] Comment on above: Order Comment: Name Collection Type:: Clean-Voided Midstream Performed By: #### A [facility], [facility] #### [facility] [address] Urine clarity by refractomet ry automatedOrdered By: Roseline Mejia on 02-13-2023 Clarity Refractometry automated (U) Clear Clear [facility] Urine glucose measurement by automated test strip (mass/volume)Ordered By: Roseline Mejia on 02-13-2023 Glucose Auto test strip (U) [Mass/Vol] Normal mg/dL Normal [facility] Urine hemoglobin detection b y automated test stripOrdered By: Roseline Mejia on 02-13-2023 Hemoglobin Auto test strip Ql (U) Negative Negative [facility] Urine leukocyte esterase det ection by automated test stripOrdered By: Roseline Mejia on 02-13-2023 Leukocyte esterase Auto test strip Ql (U) Negative Negative [facility] Urine pH measurement by auto mated test stripOrdered By: Roseline Mejia on 02-13-2023 pH (U) 5.5 [pH] Normal 5.0-9.0 [facility] Comment on above: Order Comment: Name Collection Type:: Clean-Voided Midstream Performed By: #### A CORY, JOSESITO, CUU #### [facility] [address] [place] [address] Urobilinogen Auto test strip (U) [Mass/Vol]Ordered By: Roseline Mejia on 02-13-2023 Urobilinogen (U) [Mass/Vol] Normal mg/dL Normal [facility] CBC W Auto Differential pane l (Bld)on 02-12-2023 Basophils (Bld) [#/Vol] 0.02 x10*3/uL Normal 0.00-0.10 [facility] Comment on above: Performed By: #### 5 7021-8 #### OUMAR BRICEÑO ([id number]) [facility] ([facility] [address] [place] [address] Basophils/100 WBC (Bld) 0.5 % Normal 0.0-2.0 [facility] Comment on above: Performed By: #### 5 7021-8 #### OUMAR BRICEÑO ([id number]) [facility] ([facility]) [address] [place] [address] Eosinophils (Bld) [#/Vol] 0.06 x10*3/uL Normal 0.00-0.70 [facility] Comment on above: Performed By: #### 5 7021-8 #### OUMAR BRICEÑO ([id number]) [facility] ([facility]) [address] [place] [address] Eosinophils/100 WBC (Bld) 1.4 % Normal 0.0-6.0 [facility] Comment on above: Performed By: #### 5 7021-8 #### OUMAR BRICEÑO (19684) [facility] ([facility]) [address] [place] [address] Erythrocyte distribution width (RBC) [Ratio] 12.1 % Normal 11.5-14.5 [facility] Comment on above: Performed By: #### 5 7021-8 #### OUMAR BRICEÑO ([id number]) [facility] ([facility]) [address] [place] [address] Hematocrit (Bld) [Volume fraction] 37.9 % Normal 36.0-46.0 [facility] Comment on above: Performed By: #### 5 7021-8 #### OUMAR BRICEÑO (32019) [facility] ([facility]) [address] [place] [address] Hemoglobin (Bld) [Mass/Vol] 12.8 g/dL Normal 12.0-16.0 [facility] Comment on above: Performed By: #### 5 7021-8 #### OUMAR BRICEÑO (77382) [facility] ([facility]) [address] [place] [address] Immature granulocytes (Bld) [#/Vol] 0.01 x10*3/uL Normal 0.00-0.70 [facility] Comment on above: Performed By: #### 5 7021-8 #### OUMAR BRICEÑO (55537) [facility] ([facility]) [address] [place] [address] Immature granulocytes/100 WBC (Bld) 0.2 % Normal 0.0-0.9 [facility] Comment on above: Result Comment: Janny ture Granulocyte Count (IG) includes promyelocytes, myelocytes and metamyelocytes but does not include bands. Percent differential counts (%) should be interpreted in the context of the absolute cell counts (cells/UL). Performed By: #### 5 7021-8 #### OUMAR BRICEÑO (07298) [facility] ([facility]) [id number] [place] [address] Lymphocytes (Bld) [#/Vol] 1.63 x10*3/uL Normal 1.20-4.80 [facility] Comment on above: Performed By: #### 5 7021-8 #### OUMAR BRICEÑO (00050) [facility] ([facility]) [address] [place] [address] Lymphocytes/100 WBC (Bld) 38.9 % Normal 13.0-44.0 [facility] Comment on above: Performed By: #### 5 7021-8 #### OUMAR BRICEÑO (58503) [facility] ([facility]) [id number] [place] [address] MCH (RBC) [Entitic mass] 30.5 pg Normal 26.0-34.0 [facility] Comment on above: Performed By: #### 5 7021-8 #### OUMAR BRICEÑO (40235) [facility] ([facility]) [address] [place] [address] MCHC (RBC) [Mass/Vol] 33.8 g/dL Normal 32.0-36.0 [facility] Comment on above: Performed By: #### 5 7021-8 #### OUMAR BRICEÑO (15366) [facility] ([facility] [address] [place] [address] MCV (RBC) [Entitic vol] 91 fL Normal 80-100 [facility] Comment on above: Performed By: #### 5 7021-8 #### OUMAR BRICEÑO (37414) [facility] ([facility] [address] [place] [address] Monocytes (Bld) [#/Vol] 0.26 x10*3/uL Normal 0.10-1.00 [facility] Comment on above: Performed By: #### 5 7021-8 #### OUMAR BRICEÑO (68098) [facility] ([facility]) [address] [place] [address] Monocytes/100 WBC (Bld) 6.2 % Normal 2.0-10.0 [facility] Comment on above: Performed By: #### 5 7021-8 #### OUMAR BRICEÑO (98248) [facility] ([facility] [address] [place] [address] Neutrophils (Bld) [#/Vol] 2.21 x10*3/uL Normal 1.20-7.70 [facility] Comment on above: Result Comment: Perc ent differential counts (%) should be interpreted in the context of the absolute cell counts (cells/uL). Performed By: #### 5 7021-8 #### OUMAR BRICEÑO (45164) [facility] ([facility] [address] [place] [address] Neutrophils/100 WBC (Bld) 52.8 % Normal 40.0-80.0 [facility] Comment on above: Performed By: #### 5 7021-8 #### OUMAR BRICEOÑ (14795) [facility] ([facility]) [address] [place] [address] Nucleated RBC/100 WBC (Bld) [Ratio] 0.0 /100 WBCs Normal 0.0-0.0 [facility] Comment on above: Performed By: #### 5 7021-8 #### OUMAR BRICEÑO (10455) [facility] ([facility]) [address] [place] [address] Platelets (Bld) [#/Vol] 291 x10*3/uL Normal 150-450 [facility] Comment on above: Performed By: #### 5 7021-8 #### OUMAR BRICEÑO (57290) [facility] ([facility]) [id number] [place] [address] RBC (Bld) [#/Vol] 4.19 x10*6/uL Normal 4.00-5.20 [facility] Comment on above: Performed By: #### 5 7021-8 #### OUMAR BRICEÑO (94253) [facility] ([facility]) [address] [place] [address] WBC (Bld) [#/Vol] 4.2 x10*3/uL Low 4.4-11.3 [facility] Comment on above: Performed By: #### 5 7021-8 #### OUMAR BRICEÑO (71343) [facility] ([facility]) [id number] [place] [address] Comprehensive metabolic 2000 panelon 02-12-2023 Albumin BCP dye [Mass/Vol] 4.2 g/dL Normal 3.4-5.0 [facility] Comment on above: Performed By: #### 2 4323-8 #### OUMAR BRICEÑO (55046) [facility] ([facility] [address] [place] [address] ALP [Catalytic activity/Vol] 55 U/L Normal 33-110 [facility] Comment on above: Performed By: #### 2 4323-8 #### OUMAR BRICEÑO (84664) [facility] ([facility] [address] [place] [address] ALT With P-5'-P [Catalytic activity/Vol] 13 U/L Normal 7-45 [facility] Comment on above: Result Comment: Umm ents treated with Sulfasalazine may generate falsely decreased results for ALT. Performed By: #### 2 4323-8 #### OUMAR BRICEÑO (45386) [facility] [facility] ([facility]) [address] [place] [address] Anion gap [Moles/Vol] 13 mmol/L Normal 10-20 [facility] Comment on above: Performed By: #### 2 4323-8 #### OUMAR BRICEÑO (40071) [facility] ([facility]) [address] [place] [address] AST With P-5'-P [Catalytic activity/Vol] 21 U/L Normal 9-39 [facility] Comment on above: Performed By: #### 2 4323-8 #### OUMAR BRICEÑO (24007) [facility] ([facility]) [address] [place] [address] Bilirubin [Mass/Vol] 0.5 mg/dL Normal 0.0-1.2 [facility] Comment on above: Performed By: #### 2 4323-8 #### OUMAR BRICEÑO (30432) [facility] ([facility]) [address] [place] [address] Calcium [Mass/Vol] 8.9 mg/dL Normal 8.6-10.3 [facility] Comment on above: Performed By: #### 2 4323-8 #### OUMAR BRICEÑO (88123) [facility] ([facility]) [address] [place] [address] Chloride [Moles/Vol] 107 mmol/L Normal 98-107 [facility] Comment on above: Performed By: #### 2 4323-8 #### OUMAR BRICEÑO (17159) [facility] ([facility]) [address] [place] [address] CO2 [Moles/Vol] 23 mmol/L Normal 21-32 [facility] Comment on above: Performed By: #### 2 4323-8 #### OUMAR BRICEÑO (16150) [facility] ([facility]) [address] [place] [address] Creatinine [Mass/Vol] 0.73 mg/dL Normal 0.50-1.05 [facility] Comment on above: Performed By: #### 2 4323-8 #### OUMAR BRICEÑO (25297) [facility] ([facility]) [address] [place] [address] GFR/1.73 sq M.predicted MDRD (S/P/Bld) [Vol rate/Area] mL/min/{1.73_m2} Normal >60 [facility] Comment on above: Result Comment: Calc ulations of estimated GFR are performed using the 2020 CKD-EPI Study Refit equation without the race variable for the IDMS-Traceable creatinine methods. https://jasn.asnjournals.org/content/early/ASN.10838217 88 Performed By: #### 2 4323-8 #### OUMAR BRICEÑO (00731) [facility] ([facility]) [address] [place] [address] Glucose [Mass/Vol] 84 mg/dL Normal 74-99 [facility] Comment on above: Performed By: #### 2 4323-8 #### OUMAR BRICEÑO (44892) [facility] ([facility]) [address] [place] [address] Potassium [Moles/Vol] 3.6 mmol/L Normal 3.5-5.3 [facility] Comment on above: Performed By: #### 2 4323-8 #### OUMAR BRICEÑO (99885) [facility] ([facility]) [address] [place] [address] Protein [Mass/Vol] 7.0 g/dL Normal 6.4-8.2 [facility] Comment on above: Performed By: #### 2 4323-8 #### OUMAR BRICEÑO (63843) [facility] ([facility]) [address] [place] [address] Sodium [Moles/Vol] 139 mmol/L Normal 136-145 [facility] Comment on above: Performed By: #### 2 4323-8 #### OUMAR BRICEÑO (30743) [facility] ([facility]) [address] [place] [address] Urea nitrogen [Mass/Vol] 9 mg/dL Normal 6-23 [facility] Comment on above: Performed By: #### 2 4323-8 #### OUMAR BRICEÑO (58423) [facility] ([facility]) [address] [place] [address] Lactateon 02-12-2023 Lactate [Moles/Vol] 0.6 mmol/L Normal 0.4-2.0 [facility] Comment on above: Order Comment: Venip uncture immediately after or during the administration of Metamizole may lead to falsely low results. Testing should be performed immediately prior to Metamizole dosing. Performed By: #### 2 524-7 #### OUMAR BRICEÑO (69176) [facility] ([facility]) [address] [place] [address] Triacylglycerol lipaseon Lipase [Catalytic activity/Vol] 43 U/L Normal 9-82 [facility] Comment on above: Order Comment: Venip uncture immediately after or during the administration of Metamizole may lead to falsely low results. Testing should be performed immediately prior to Metamizole dosing. Performed By: #### 3 040-3 #### OUMAR BRICEÑO (46714) [facility] ([facility]) [address] [place] [address] Urinalysis complete panel (U )on 02-12-2023 Appearance (U) Clear Normal Clear [facility] Comment on above: Performed By: #### 2 4356-8 #### OUMAR BRICEÑO (51841) [facility] ([facility]) [address] [place] [address] Bilirubin (U) [Mass/Vol] Negative Normal NEGATIVE [facility] Comment on above: Performed By: #### 2 4356-8 #### OUMAR BRICEÑO (11054) [facility] ([facility]) [address] [place] [address] Color (U) Yellow Normal Straw, Yellow [facility] Comment on above: Performed By: #### 2 4356-8 #### OUMAR BRICEÑO (63073) [facility] ([facility]) [address] [place] [address] Glucose Auto test strip (U) [Mass/Vol] Negative Normal NEGATIVE [facility] Comment on above: Performed By: #### 2 4356-8 #### OUMAR BRICEÑO (68544) [facility] ([facility]) [address] [place] [address] Ketones (U) [Mass/Vol] Negative Normal NEGATIVE [facility] Comment on above: Performed By: #### 2 4356-8 #### OUMAR BRICEÑO (78403) [facility] ([facility]) [address] [place] [address] Leukocyte esterase Auto test strip Ql (U) Negative Normal NEGATIVE [facility] Comment on above: Performed By: #### 2 4356-8 #### OUMAR BRICEÑO (83714) [facility] ([facility]) [address] [place] [address] Nitrite Auto test strip Ql (U) Negative Normal NEGATIVE [facility] Comment on above: Performed By: #### 2 4356-8 #### OUMAR BRICEÑO (09155) [facility] ([facility]) [address] [place] [address] pH (U) 6.0 [pH] Normal 5.0, 5.5, 6.0, 6.5, 7.0, 7.5, 8.0 [facility] Comment on above: Performed By: #### 2 4356-8 #### OUMAR BRICEÑO (11275) [facility] ([facility]) [address] [place] [address] Protein (U) [Mass/Vol] Negative Normal NEGATIVE [facility] Comment on above: Performed By: #### 2 4356-8 #### OUMAR BRICEÑO (26923) [facility] ([facility]) [address] [place] [address] RBC (U) [#/Vol] Negative Normal NEGATIVE [facility] Comment on above: Performed By: #### 2 4356-8 #### OUMAR BRICEÑO (24483) [facility] ([facility]) [address] [place] [address] Specific gravity (U) [Rel density] 1.021 Normal 1.005-1.035 [facility] Comment on above: Performed By: #### 2 4356-8 #### OUMAR BRICEÑO (91401) [facility] ([facility]) [address] [place] [address] Urobilinogen (U) [Mass/Vol] mg/dL Normal <2.0 [facility] Comment on above: Performed By: #### 2 4356-8 #### OUMAR BRICEÑO (56046) [facility] ([facility]) [address] [place] [address] CNPNon 02-11-2023 CNPN Normal [facility] HISTORY PHYSICALon HISTORY PHYSICAL HNO ID: [id number] Author: Vic Ramos MD Service: Pain Management [...] DATE: February 10, 2023 TIME: 2:00 PM [facility] HISTORY PHYSICAL HNO ID: [id number] Author: Anam Carter APRN.[employer] Service: General Internal Medicine Author Type: Nurse Practitioner Type: HANDP Filed: 02/10/2023 2:04 PM Note Text: Abbey Garcia returns to [facility] for the treatment of [...] syndrome Plan: Block celiac plexus Anam Carter APRN.[facility] OPERATIVE NOon 02-10-2023 OPERATIVE NO HNO ID: [id number] Author: Vic Ramos MD Service: Pain Management Author Type: Anesthesiologist Type: Operative Report Filed: 02/10/2023 2:41 PM Note Text: [facility] Pre-Procedure Note Patient Name: Abbey Garcia SUBJECTIVE: Abbey Garcia is a 32 year old female who presents to [facility]. This is her 1st. Patient denies any contraindications to the procedure including . 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 OBJECTIVE: BP 121/74 [...] February 10, 2023 day of surgery Normal [facility] Office/Clini c Noteon 02-03-2023 Family Medicine Office/Clinic Note Normal [facility] Comment on above: Result Comment: Elec tronically Signed By: Jaquan Paula\.br\Date and Time Signed: 02/03/23 15:18 EST Zachary 01-15-[address] 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 CPT Codes: 83709 Mesenteric Duplex scan Pertinent History: Celiac artery [...] PSV 116 cm/s Splenic PSV 77 cm/s [id number] Kwan MD Final Normal [facility] CBC W Auto Differential pane l (Bld)on 01-13-2023 Basophils (Bld) [#/Vol] 0.04 x10*3/uL Normal 0.00-0.10 [facility] Comment on above: Performed By: #### 5 7021-8 #### MELISA Galvan (31796) [facility] () [address] [place] [address] Basophils/100 WBC (Bld) 0.7 % Normal 0.0-2.0 [facility] Comment on above: Performed By: #### 7021-8 #### MELISA Galvan (36578) [facility] () [address] [place] [address] Eosinophils (Bld) [#/Vol] 0.13 x10*3/uL Normal 0.00-0.70 [facility] Comment on above: Performed By: #### 7021-8 #### MELISA Galvan (49110) [facility] () [address] [place] [address] Eosinophils/100 WBC (Bld) 2.2 % Normal 0.0-6.0 [facility] Comment on above: Performed By: #### 7021-8 #### MELISA Galvan (53059) [facility] () [address] [place] [address] Erythrocyte distribution width (RBC) [Ratio] 12.4 % Normal 11.5-14.5 [facility] Comment on above: Performed By: #### 5 7021-8 #### MELISA Galvan (34713) [facility] () [address] [place] [address] Hematocrit (Bld) [Volume fraction] 36.6 % Normal 36.0-46.0 [facility] Comment on above: Performed By: #### 7021-8 #### MELISA Galvan (44081) [facility] () [address] [place] [address] Hemoglobin (Bld) [Mass/Vol] 12.6 g/dL Normal 12.0-16.0 [facility] Comment on above: Performed By: #### 7021-8 #### MELISA Galvan (74996) [facility] () [address] [place] [address] Immature granulocytes (Bld) [#/Vol] 0.01 x10*3/uL Normal 0.00-0.70 [facility] Comment on above: Performed By: #### 5 7021-8 #### MELISA Galvan (52592) [facility] () [address] [place] [address] Immature granulocytes/100 WBC (Bld) 0.2 % Normal 0.0-0.9 [facility] Comment on above: Result Comment: Janny ture Granulocyte Count (IG) includes promyelocytes, myelocytes and metamyelocytes but does not include bands. Percent differential counts (%) should be interpreted in the context of the absolute cell counts (cells/UL). Performed By: #### 5 7021-8 #### MELISA Galvan (83839) [facility] () [address] [place] [address] Lymphocytes (Bld) [#/Vol] 2.26 x10*3/uL Normal 1.20-4.80 [facility] Comment on above: Performed By: #### 5 7021-8 #### MELISA Galvan (65988) [facility] () [address] [place] [address] Lymphocytes/100 WBC (Bld) 39.0 % Normal 13.0-44.0 [facility] Comment on above: Performed By: #### 5 7021-8 #### MELISA Galvan (54313) [facility] () [address] [place] [address] MCH (RBC) [Entitic mass] 30.7 pg Normal 26.0-34.0 [facility] Comment on above: Performed By: #### 5 7021-8 #### MELISA Galvan (99350) [facility] () [address] [place] [address] MCHC (RBC) [Mass/Vol] 34.4 g/dL Normal 32.0-36.0 [facility] Comment on above: Performed By: #### 5 7021-8 #### MELISA Galvan (41155) [facility] () [address] [place] [address] MCV (RBC) [Entitic vol] 89 fL Normal 80-100 [facility] Comment on above: Performed By: #### 5 7021-8 #### MELISA Galvan (79059) [facility] () [address] [place] [address] Monocytes (Bld) [#/Vol] 0.41 x10*3/uL Normal 0.10-1.00 [facility] Comment on above: Performed By: #### 5 7021-8 #### MELISA Galvan (88984) [facility] () [address] [place] [address] Monocytes/100 WBC (Bld) 7.1 % Normal 2.0-10.0 [facility] Comment on above: Performed By: #### 5 7021-8 #### MELISA Galvan (19162) [facility] () [address] [place] [address] Neutrophils (Bld) [#/Vol] 2.95 x10*3/uL Normal 1.20-7.70 [facility] Comment on above: Result Comment: Perc ent differential counts (%) should be interpreted in the context of the absolute cell counts (cells/uL). Performed By: #### 5 7021-8 #### MELISA Galvan (36218) [facility] () [address] [place] [address] Neutrophils/100 WBC (Bld) 50.8 % Normal 40.0-80.0 [facility] Comment on above: Performed By: #### 5 7021-8 #### MELISA Galvan (39073) [facility] () [address] [place] [address] Nucleated RBC/100 WBC (Bld) [Ratio] 0.0 /100 WBCs Normal 0.0-0.0 [facility] Comment on above: Performed By: #### 5 7021-8 #### MELISA Galvan (15210) [facility] () [address] [place] [address] Platelets (Bld) [#/Vol] 222 x10*3/uL Normal 150-450 [facility] Comment on above: Performed By: #### 5 7021-8 #### MELISA Galvan (77922) [facility] () [address] [place] [address] RBC (Bld) [#/Vol] 4.11 x10*6/uL Normal 4.00-5.20 [facility] Comment on above: Performed By: #### 5 7021-8 #### MELISA Galvan (68226) [facility] () [address] [place] [address] WBC (Bld) [#/Vol] 5.8 x10*3/uL Normal 4.4-11.3 [facility] Comment on above: Performed By: #### 5 7021-8 #### MELISA Galvan (92615) [facility] () [address] [place] [address] Comprehensive metabolic 2000 panelon 01-13-2023 Albumin [Mass/Vol] 4.2 g/dL Normal 3.5-5.0 [facility] Comment on above: Performed By: #### 2 4323-8 #### MELISA Galvan (58817) [facility] () [address] [place] [address] ALP (Bld) [Catalytic activity/Vol] 74 U/L Normal 35-125 [facility] Comment on above: Performed By: #### 2 4323-8 #### MELISA Galvan (83883) [facility] () [address] [place] [address] ALT [Catalytic activity/Vol] 15 U/L Normal 5-40 [facility] Comment on above: Performed By: #### 2 4323-8 #### MELISA Galvan (10830) [facility] () [address] [place] [address] Anion gap [Moles/Vol] 10 mmol/L Normal <=19 [facility] Comment on above: Performed By: #### 2 4323-8 #### MELISA Galvan (88172) [facility] () [address] [place] [address] AST [Catalytic activity/Vol] 26 U/L Normal 5-40 [facility] Comment on above: Performed By: #### 2 4323-8 #### MELISA Galvan (22630) [facility] () [address] [place] [address] Bilirubin [Mass/Vol] 0.5 mg/dL Normal 0.1-1.2 [facility] Comment on above: Performed By: #### 2 432-8 #### MELISA Galvan (79017) [facility] () [address] [place] [address] Calcium [Mass/Vol] 9.1 mg/dL Normal 8.5-10.4 [facility] Comment on above: Performed By: #### 2 4323-8 #### MELISA Galvan (51628) [facility] () [address] [place] [address] Chloride [Moles/Vol] 103 mmol/L Normal 97-107 [facility] Comment on above: Performed By: #### 2 4323-8 #### MELISA Galvan (24218) [facility] () [address] [place] [address] CO2 [Moles/Vol] 23 mmol/L Low 24-31 [facility] Comment on above: Performed By: #### 2 4323-8 #### MELISA Galvan (96038) [facility] () [address] [place] [address] Creatinine [Mass/Vol] 0.70 mg/dL Normal 0.40-1.60 [facility] Comment on above: Performed By: #### 2 4323-8 #### MELISA Galvan (30283) [facility] () [address] [place] [address] GFR/1.73 sq M.predicted MDRD (S/P/Bld) [Vol rate/Area] mL/min/{1.73_m2} Normal >60 [facility] Comment on above: Result Comment: Calc ulations of estimated GFR are performed using the 2020 CKD-EPI Study Refit equation without the race variable for the IDMS-Traceable creatinine methods. https://jasn.asnjournals.org/content/early//ASN.69854659 88 Performed By: #### 2 4323-8 #### MELISA Galvan (78510) [facility] () [address] [place] [address] Glucose [Mass/Vol] 89 mg/dL Normal 65-99 [facility] Comment on above: Performed By: #### 2 4323-8 #### MELISA Galvan (46850) [facility] () [address] [place] [address] Potassium [Moles/Vol] 3.5 mmol/L Normal 3.4-5.1 [facility] Comment on above: Performed By: #### 2 4323-8 #### MELISA Galvan (53621) [facility] () [address] [place] [address] Protein [Mass/Vol] 6.9 g/dL Normal 5.9-7.9 [facility] Comment on above: Performed By: #### 2 4323-8 #### MELISA Galvan (47068) [facility] () [address] [place] [address] Sodium [Moles/Vol] 136 mmol/L Normal 133-145 [facility] Comment on above: Performed By: #### 2 4323-8 #### MELISA Galvan (95022) [facility] () [address] [place] [address] Urea nitrogen [Mass/Vol] 13 mg/dL Normal 8-25 [facility] Comment on above: Performed By: #### 2 4323-8 #### MELISA Galvan () [facility] () [address] [place] [address] HCG ( test) IA.rapi d Ql (U)on 01-13-2023 HCG ( test) Ql (U) Negative Normal NEGATIVE [facility] Comment on above: Performed By: #### 8 0384-1 #### MELISA Galvan (02122) [facility] () [address] [place] [address] Urinalysis complete panel (U )on 01-13-2023 Appearance (U) Clear Normal Clear [facility] Comment on above: Performed By: #### 2 4356-8 #### MELISA Galvan (49866) [facility] () [address] [place] [address] Bilirubin (U) [Mass/Vol] Negative Normal NEGATIVE [facility] Comment on above: Performed By: #### 2 4356-8 #### MELISA Galvan (23828) [facility] () [address] [place] [address] Color (U) Light-Yellow Normal Light-Yellow, Yellow, Dark-Yellow [facility] Comment on above: Performed By: #### 2 4356-8 #### MELISA Galvan (29839) [facility] () [address] [place] [address] Glucose Auto test strip (U) [Mass/Vol] Normal Normal Normal [facility] Comment on above: Performed By: #### 2 4356-8 #### MELISA Galvan (73303) [facility] () [address] [place] [address] Ketones (U) [Mass/Vol] Negative Normal NEGATIVE [facility] Comment on above: Performed By: #### 2 4356-8 #### MELISA Galvan (64291) [facility] () [address] [place] [address] Leukocyte esterase Auto test strip Ql (U) Negative Normal NEGATIVE [facility] Comment on above: Performed By: #### 2 4356-8 #### MELISA Galvan (31694) [facility] () [address] [place] [address] Nitrite Auto test strip Ql (U) Negative Normal NEGATIVE [facility] Comment on above: Performed By: #### 2 4356-8 #### MELISA Galvan (67208) [facility] () [address] [place] [address] pH (U) 7.0 [pH] Normal 5.0, 5.5, 6.0, 6.5, 7.0, 7.5, 8.0 [facility] Comment on above: Performed By: #### 2 4356-8 #### MELISA Galvan (34753) [facility] () [address] [place] [address] Protein (U) [Mass/Vol] Negative Normal NEGATIVE, 10 (TRACE), 20 (TRACE) [facility] Comment on above: Performed By: #### 2 4356-8 #### MELISA Galvan (18669) [facility] () [address] [place] [address] RBC (U) [#/Vol] Negative Normal NEGATIVE [facility] Comment on above: Performed By: #### 2 4356-8 #### MELISA Galvan (24632) [facility] () [address] [place] [address] Specific gravity (U) [Rel density] 1.010 Normal 1.005-1.035 [facility] Comment on above: Performed By: #### 2 4356-8 #### MELISA Galvan (45134) [facility] () [address] [place] [address] Urobilinogen (U) [Mass/Vol] Normal Normal Normal [facility] Comment on above: Performed By: #### 2 4356-8 #### MELISA Galvan (80186) [facility] () [address] [place] [address] CNPNon 01-11-2023 CNPN Normal [facility] CNPNon 01-06-2023 CNPN Normal [facility] Auto Diffon 12-31-2022 Basophils/100 WBC (Bld) 0.6 % Normal 0.0-2.0 [facility] Comment on above: Order Comment: Order Added by Discern Expert. Performed By: #### 2 485206, 0066968, 12477663, 2806873, 2902537, [id number], 1972116 ####[facility] [address] [place] [address] Basophils/Leukocyte s Auto (Bld) [Pure # fraction] 0.0 E9/L Normal 0.0-0.2 [facility] Comment on above: Order Comment: Order Added by Discern Expert. Performed By: #### 2 489164, [id number], [id number], 9293704, 4751101, [id number], 2760262 ####[facility] [address] [place] [address] Eosinophils/100 WBC (Bld) 0.4 % Normal 0.0-8.0 [facility] Comment on above: Order Comment: Order Added by Discern Expert. Performed By: #### 2 612667, 5567969, 42083966, 7333635, 9716842, 36248666, 0869307 ####[facility] [address] [place] [address] Eosinophils/Leukocy stevan Auto (Bld) [Pure # fraction] 0.0 E9/L Normal 0.0-0.5 [facility] Comment on above: Order Comment: Order Added by Discern Expert. Performed By: #### 2 677780, 4222305, 69139905, 5833661, 1087124, 06975683, 9569589 ####[facility] [address] [place] [address] Lymphocytes/100 WBC (Bld) 42.3 % Normal 14.0-50.0 [facility] Comment on above: Order Comment: Order Added by Discern Expert. Performed By: #### 2 088240, 4712097, 48376289, 8301084, 6436234, 24319883, 6633693 ####[facility] [address] [place] [address] Lymphocytes/Leukocy stevan Auto (Bld) [Pure # fraction] 1.9 E9/L Normal 1.0-4.0 [facility] Comment on above: Order Comment: Order Added by Mariela Expert. Performed By: #### 2 216804, 5973372, 06866596, 2484507, 3684515, 86666383, 2655418 ####[facility] [address] [place] [address] Monocytes/100 WBC (Bld) 7.9 % Normal 4.0-14.0 [facility] Comment on above: Order Comment: Order Added by Mariela Expert. Performed By: #### 2 640482, 4488400, 48045645, 2767718, 9087650, 33540432, 9077562 ####[address] [place] [address] Monocytes/Leukocyte s Auto (Bld) [Pure # fraction] 0.4 E9/L Normal 0.2-1.0 [facility] Comment on above: Order Comment: Order Added by Mariela Expert. Performed By: #### 2 241926, 7541431, 58554135, 8404787, 6152303, 14215654, 3745845 ####[facility] [address] [place] [address] Neutrophils/100 WBC (Bld) 48.8 % Normal 36.0-75.0 [facility] Comment on above: Order Comment: Order Added by Discern Expert. Performed By: #### 2 212096, 1716067, 46504526, 2279815, 3911784, 30752596, 3003385 ####[facility] [address] [place] [address] Neutrophils/Leukocy stevan Auto (Bld) [Pure # fraction] 2.2 E9/L Normal 2.0-7.5 [facility] Comment on above: Order Comment: Order Added by Discern Expert. Performed By: #### 2 849741, 1828741, 33794146, 8998491, 9236740, 07608001, 6803477 ####[address] [address] B hCG Qualon 12-31-2022 Beta HCG ( test) Ql Negative Normal [facility] Comment on above: Performed By: #### 2 879306, 1515942, 98952519, 7202848, 1181781, 05196848, 3417987 ####[facility] [address] [place] [address] BMPon 12-31-2022 Creatinine [Mass/Vol] 0.8 mg/dL Normal 0.5-1.3 [facility] Comment on above: Performed By: #### 2 347430, 5654894, 95975475, 3247490, 6537593, 78515268, 7081499 ####[address] [place] [address] Urea nitrogen [Mass/Vol] 16 mg/dL Normal 5-21 [facility] Comment on above: Performed By: #### 2 719012, 7502322, 12709747, 0894092, 1789177, 85768428, 8797441 ####[facility] [address] [place] [address] Urea nitrogen/Creatinine [Mass ratio] 20 No Units Normal 10-20 [facility] Comment on above: Performed By: #### 2 378189, 9381364, 40353654, 6754505, 5665530, 34346950, 7072362 ####[facility] [address] [place] [address] Anion gap [Moles/Vol] 10 mmol/L Normal 6-16 [facility] Comment on above: Performed By: #### 2 900795, 0751071, 49847510, 6657166, 6522675, 69225030, 1055427 ####[facility] [address] [place] [address] Calcium [Mass/Vol] 8.6 mg/dL Low 8.9-11.1 [facility] Comment on above: Performed By: #### 2 690708, 4024892, 80910204, 0396175, 8568090, 96852584, 3787624 ####[facility] [address] [place] [address] Chloride [Moles/Vol] 110 mmol/L Normal 101-111 [facility] Comment on above: Performed By: #### 2 216511, 7441457, 55909301, 8628729, 0371188, 64503272, 3499138 ####[facility] [address] [place] [address] CO2 [Moles/Vol] 20 mmol/L Low 21-31 [facility] Comment on above: Performed By: #### 2 174599, 2232984, 86022418, 4064989, 9956374, 97408371, 3706627 ####[facility] [address] [place] [address] Glucose [Mass/Vol] 87 mg/dL Normal 55-199 [facility] Comment on above: Result Comment: If t his glucose result represents a fasting glucose, interpretation should refer to the following reference range: 55-99 mg/dL Performed By: #### 2 977274, 5575934, 58422155, 4725414, 4935005, 65323183, 5205820 ####[facility] [address] [place] [address] Potassium [Moles/Vol] 3.2 mmol/L Low 3.5-5.3 [facility] Comment on above: Performed By: #### 2 775271, 2088772, 41108668, 2087608, 8376751, 02018955, 4247097 ####[address] [place] [address] Sodium [Moles/Vol] 137 mmol/L Normal 135-145 [facility] Comment on above: Performed By: #### 2 927413, 0246677, 68184777, 4264630, 0448076, 63304608, 7190003 ####[address] [address] CBC w/ Auto Diffon 3 Erythrocyte distribution width (RBC) [Ratio] 13.9 % Normal 10.9-14.2 [facility] Comment on above: Performed By: #### 2 483109, 6434465, 75838365, 0952053, 5554039, 61419209, 1739219 ####[address] [address] Hematocrit (Bld) [Volume fraction] 35.5 % Normal 34.0-46.0 [facility] Comment on above: Performed By: #### 2 659689, 7866732, 42568061, 4243099, 9022191, 71640091, 0314169 ####[address] [address] Hemoglobin (Bld) [Mass/Vol] 12.2 g/dL Normal 12.0-16.0 [facility] Comment on above: Performed By: #### 2 767835, 0006664, 99092147, 8789544, 8955127, 89664679, 3256153 ####[address] [address] MCH (RBC) [Entitic mass] 30.8 pg Normal 27.0-34.0 [facility] Comment on above: Performed By: #### 2 648826, 7297083, 17457851, 0103355, 8778440, 02743715, 4220149 ####[address] [place] [address] MCHC (RBC) [Mass/Vol] 34.4 g/dL Normal 31.4-36.0 [facility] Comment on above: Performed By: #### 2 234396, 1955331, 19691039, 7168237, 4610859, 03386583, 3348736 ####[address] MCV (RBC) [Entitic vol] 89.5 fL Normal 80.0-100.0 [facility] Comment on above: Performed By: #### 2 404425, 4302722, 88525891, 2031521, 5796366, 01709205, 2291215 ####[address] [place] Platelet mean volume (Bld) [Entitic vol] 9.5 fL Normal 6.4-10.8 [facility] Comment on above: Performed By: #### 2 269543, 9553625, 08981043, 9901400, 2897747, 83218147, 3462759 ####[address] Platelets (Bld) [#/Vol] 177.0 E9/L Normal 150.0-500.0 [facility] Comment on above: Performed By: #### 2 135799, 6294360, 71468239, 2342490, 3861429, 24956979, 5386530 ####[address] [place] RBC (Bld) [#/Vol] 4.0 E12/L Low 4.3-5.9 [facility] Comment on above: Performed By: #### 2 741077, 1989015, 40377284, 9344667, 2899147, 91792027, 9337522 ####[place] [place] WBC corrected for nucl RBC Auto (Bld) [#/Vol] 4.4 E9/L Normal 4.0-11.0 [facility] Comment on above: Performed By: #### 2 096888, 5185281, 74972897, 7305428, 0463149, 71902778, 1948964 ####[facility] [address] [place] [address] CHEMISTRYOrdered By: SYSTEM SYSTEM on 12-31-2022 Albumin [...] rate/Area] 100 mL/min/1.73 m2 Normal >=59mL/min/1.73 m2 [facility] Chem S Comment on above: Interpretive Data: C hronic kidney disease could be indicated at eGFR's of less than 60 mL/min/1.73m2. Kidney failure is indicated at less than 15 mL/min/1.73m2. Globulin (S) [Mass/Vol] 2.9 g/dL Normal 1.4 - 4.0 gm/dL [facility] Remisol Glucose [Mass/Vol] 87 mg/dL Normal 55 - 199 mg/dL [facility] Comment on above: Interpretive Data: I f this glucose result represents a fasting glucose, interpretation should refer to the following reference range: 55-99 mg/dL Lipase [Catalytic activity/Vol] 49 U/L Normal 13 - 58 unit/L [facility] Remisol Potassium [Moles/Vol] 3.2 mmol/L Low 3.5 - 5.3 mmol/L [facility] Remisol Protein [Mass/Vol] 6.8 g/dL Normal 6.0 - 7.8 gm/dL [place] [facility] [place] Remisol Sodium [Moles/Vol] 137 mmol/L Normal 135 - 145 mmol/L [facility] Remisol Urea nitrogen [Mass/Vol] 16 mg/dL Normal 5 - 21 mg/dL [facility] Remisol Urea nitrogen/Creatinine [Mass ratio] 20 mg/mg Normal 10 - 20 [facility] Remisol Consent for Treatmenton 12-16 Consent for Treatment [id number]#[id number] Normal [facility] Discharge Instructionson Discharge Instructions [id number] 93#1.00TIFF Normal [facility] ED Clinical Summaryon 2022 ED Clinical Summary Normal [facility] ED Note-Physicianon 01-01-20 ED Note-Physician Normal [facility] Comment on above: Result Comment: Elec tronically Signed By: Lonnie Rios PA-C\.br\Date and Time Signed: 12/31/22 19:15 EST\.br\Electronically Co-Signed By: Mateusz Garcia DO.br\Date and Time Co-Signed: 12/31/22 19:25 EST ED Patient Education Noteon 12-31-2022 ED Patient Education Note Normal [facility] ED Patient Summaryon 023 ED Patient Summary Normal [facility] HEMATOLOGYOrdered By: SYSTEM SYSTEM on 12-31-2022 Basophils/100 [...] 34.4 g/dL Normal 31.4 - 36.0 gm/dL [facility] HemeAutoSS MCV (RBC) [Entitic vol] 89.5 fL Normal 80.0 - 100.0 fL [facility] HemeAutoSS Platelet mean volume (Bld) [Entitic vol] 9.5 fL Normal 6.4 - 10.8 fL [facility] HemeAutoSS Platelets (Bld) [#/Vol] 177.0 E9/L Normal 150.0 - 500.0 E9/L [facility] HemeAutoSS RBC (Bld) [#/Vol] 4.0 E12/L Low 4.3 - 5.9 E12/L FT HemeAutoSS WBC corrected for nucl RBC Auto (Bld) [#/Vol] 4.4 E9/L Normal 4.0 - 11.0 E9/L [facility] HemeAutoSS Hep Func Panelon 12-31-2022 Albumin [Mass/Vol] 3.9 g/dL Normal 3.3-5.0 [facility] Comment on above: Performed By: #### 2 784054, 4940900, 32668678, 6789127, 3858512, 19704623, 5006762 ####[facility] [address] [place] [address] Albumin/Globulin (S) [Mass conc ratio] 1.3 Normal 1.1-2.2 [facility] Comment on above: Performed By: #### 2 126565, 1387628, 49145372, 8732149, 4794771, 26427844, 1654131 ####[facility] [address] [place] [address] ALP [Catalytic activity/Vol] 51 Int._Unit/L Normal 21-98 [facility] Comment on above: Performed By: #### 2 792612, 5974228, 54330064, 9322780, 6660912, 73342615, 3963464 ####[facility] [address] [place] [address] ALT No additional P-5'-P [Catalytic activity/Vol] 21 Int._Unit/L Normal 6-46 [facility] Comment on above: Performed By: #### 2 438747, 6189623, 26370967, 6792167, 0398238, 78755570, 7808113 ####[address] [address] AST [Catalytic activity/Vol] 32 Int._Unit/L Normal 5-43 [facility] Comment on above: Performed By: #### 2 546227, 7356516, 26750317, 1458534, 8021340, 16020900, 1303645 ####[address] [address] Bilirubin [Mass/Vol] 0.5 mg/dL Normal 0.0-1.1 [facility] Comment on above: Performed By: #### 2 177868, 3688242, 26915448, 7985268, 9940195, 29913663, 5157840 ####[address] [address] Bilirubin.direct [Mass/Vol] 0.1 mg/dL Normal 0.1-0.4 [facility] Comment on above: Performed By: #### 2 576940, 0944008, 09559922, 9077153, 0951530, 46948196, 3698173 ####[address] [address] Bilirubin.indirect [Mass or moles/Vol] 0.4 mg/dL Normal 0.1-0.9 [facility] Comment on above: Performed By: #### 2 742103, 1143418, 26929819, 3943494, 0268809, 02644856, 9500976 ####[address] [place] [address] Globulin (S) [Mass/Vol] 2.9 g/dL Normal 1.4-4.0 [facility] Comment on above: Performed By: #### 2 038172, 7777568, 62095748, 7348209, 3811022, 12981109, 3439311 ####[address] [address] Protein [Mass/Vol] 6.8 g/dL Normal 6.0-7.8 [facility] Comment on above: Performed By: #### 2 968731, 3877937, 44403034, 8106150, 5737635, 20941774, 7431301 ####[facility] [address] [place] [address] Lipase Levelon 12-31-2022 Lipase [Catalytic activity/Vol] 49 U/L Normal 13-58 [facility] Comment on above: Performed By: #### 2 117147, 8523356, 43337152, 4302538, 4468233, 32489720, 1553867 ####[facility] [address] [place] [address] SEROLOGYOrdered By: Stacia Blair on 12-31-2022 Beta HCG ( test) Ql Negative (12/31/22 1:16 PM) Normal [facility] Man Sero UA With Cult Reflexon 2022 Bilirubin Ql (U) Negative Normal Negative [facility] Comment on above: Performed By: #### 1 6187534 ####[address] [address] Clarity (U) CLEAR Normal Clear [facility] Comment on above: Performed By: #### 1 8986769 ####[address] [place] [address] Color (U) YELLOW Normal Yellow [facility] Comment on above: Performed By: #### 1 9537482 ####[address] [address] Epithelial cells.squamous LM.HPF (Urine sed) [#/Area] 0-2 Normal 0-2 [facility] Comment on above: Performed By: #### 1 0319098 ####[address] [address] Glucose Test strip (U) [Mass/Vol] Negative Normal Negative [facility] Comment on above: Performed By: #### 1 1228921 ####[facility] [address] [place] [address] [place] [address] Hemoglobin Ql (U) Negative Normal Negative [facility] Comment on above: Performed By: #### 1 2426336 ####[address] [address] Ketones (U) [Mass/Vol] Negative Normal Negative [facility] Comment on above: Performed By: #### 1 5109899 ####[address] [address] [place].plasma/Lith ium.RBC (Bld) [Mass ratio] 0-3 Normal 0-3 [facility] Comment on above: Performed By: #### 1 9004816 ####[address] [address] Mucus Ql (Urine sed) TRACE Normal [facility] Comment on above: Performed By: #### 1 4802404 ####[address] [address] Nitrite Ql (U) Negative Normal Negative [facility] Comment on above: Performed By: #### 1 8570860 ####[address] [address] pH (U) 6.0 [pH] Invalid Interpretation Code 5.0-9.0 [facility] Comment on above: Performed By: #### 1 2914775 ####[address] [address] Protein (U) [Mass/Vol] Negative Normal Negative [facility] Comment on above: Performed By: #### 1 8213173 ####[address] [address] Specific gravity (U) [Rel density] 1.015 Invalid Interpretation Code 1.005-1.030 [facility] Comment on above: Performed By: #### 1 1025304 ####[address] [address] Type of Urine collection method Clean Catch Normal [facility] Comment on above: Performed By: #### 1 3872054 ####[facility] [address] [place] [address] Urobilinogen Qn (U) 0.2 {Munir'U}/dL Normal 0.0-1.0 [facility] Comment on above: Performed By: #### 1 5223579 ####[facility] [address] [place] [address] WBC Auto Ql (U) Negative Normal Negative [facility] Comment on above: Performed By: #### 1 6457153 ####[facility] [address] [place] [address] WBC LM.HPF (Urine sed) [#/Area] 0-5 Normal 0-5 [facility] Comment on above: Performed By: #### 1 0984243 ####[facility] [address] [place] [address] URINALYSISOrdered By: Marlene Blair on 12-31-2022 Bilirubin [...] PM) Normal Negative [facility] UA Auto SS [place].plasma/Lith ium.RBC (Bld) [Mass ratio] 0-3 /HPF Normal 0-3/HPF [facility] UA Auto SS Mucus Ql (Urine sed) Trace (12/31/22 1:16 PM) Normal [facility] UA Auto SS Nitrite Ql (U) Negative (12/31/22 1:16 PM) Normal Negative [facility] UA Auto SS pH (U) 6.0 *NA* (12/31/22 1:16 PM) Invalid Interpretation Code 5.0 - 9.0 [facility] UA Auto SS Protein (U) [Mass/Vol] Negative (12/31/22 1:16 PM) Normal Negative [facility] UA Auto SS Specific gravity (U) [Rel density] 1.015 *NA* (12/31/22 1:16 PM) Invalid Interpretation Code 1.005 - 1.030 [facility] UA Auto SS UA Spec Desc Clean Catch (12/31/22 1:16 PM) Normal [facility] UA Auto SS Urobilinogen Qn (U) 0.1770007 {Munir'U}/dL Normal 0.0 - 1.0 EU/dL [facility] UA Auto SS WBC Auto Ql (U) Negative (12/31/22 1:16 PM) Normal Negative [facility] UA Auto SS WBC LM.HPF (Urine sed) [#/Area] 0-5 /HPF Normal 0-5/HPF [facility] UA Auto SS eGFRon 12-31-2022 GFR/1.73 sq M.predicted among non-blacks MDRD (S/P/Bld) [Vol rate/Area] 100 mL/min/1.73 m2 Normal >=59 [facility] Comment on above: Order Comment: Order added by Discern Expert. Result Comment: Director Revenue alejandra kidney disease could be indicated at eGFR's of less than 60 mL/min/1.73m2. Kidney failure is indicated at less than 15 mL/min/1.73m2. Performed By: #### 2 414550, 0678166, 13142443, 1657366, 8006665, 07459718, 7453709 ####[facility] [address] [place] [address] [facility] Office/Clini c Noteon 12-29-2022 [facility] Medicine Office/Clinic Note Normal [facility] Comment on above: Result Comment: Elec tronically Signed By: Jauqan Paula\.rene\Date and Time Signed: 12/29/22 15:35 EST Provider Letteron 12-29-2022 Provider Letter Normal [facility] CNCOon 12-28-2022 CNCO Letter Text Normal [facility] CNPNon 12-28-2022 CNPN Normal [facility] CNCOon 12-25-2022 CNCO Letter Text Normal [facility] CNPNon 12-23-2022 CNPN Normal [facility] CBC With Platelet and Differ entialon 12-14-2022 Basophils (Bld) [#/Vol] 0.0 10*3/uL Normal 0.0-0.2 [facility] Comment on above: Performed By: #### L IPAS #### [facility] [address] [place] [address] Basophils/100 WBC (Bld) 0.9 % Normal [facility] Comment on above: Performed By: #### L IPAS #### [facility] [address] [place] [address] Eosinophils (Bld) [#/Vol] 0.2 10*3/uL Normal 0.0-0.7 [facility] Comment on above: Performed By: #### L IPAS #### [facility] [address] [place] [address] Eosinophils/100 WBC (Bld) 4.0 % Normal [facility] Comment on above: Performed By: #### L IPAS #### [facility] [address] [place] [address] Erythrocyte distribution width (RBC) [Ratio] 13.2 % Normal 11.5-14.5 [facility] Comment on above: Performed By: #### L IPAS #### [facility] [address] [place] [address] Hematocrit (Bld) [Volume fraction] 36.5 % Low 37.0-47.0 [facility] Comment on above: Performed By: #### L IPAS #### [facility] [address] [place] [address] Hemoglobin (Bld) [Mass/Vol] 12.4 g/dL Normal 12.0-16.0 [facility] Comment on above: Performed By: #### L IPAS #### [facility] [address] [place] [address] Lymphocytes (Bld) [#/Vol] 1.7 10*3/uL Normal 1.0-4.8 [facility] Comment on above: Performed By: #### L IPAS #### [facility] [address] [place] [address] Lymphocytes/100 WBC (Bld) 40.7 % Normal [facility] Comment on above: Performed By: #### L IPAS #### [facility] [address] [place] [address] MCH (RBC) [Entitic mass] 31.0 pg Normal 27.0-31.3 [facility] Comment on above: Performed By: #### L IPAS #### [facility] [address] [place] [address] MCHC 34.0 % Normal 33.0-37.0 [facility] Comment on above: Performed By: #### L IPAS #### [facility] [address] [place] [address] MCV (RBC) [Entitic vol] 91.3 fL Normal 79.4-94.8 [facility] Comment on above: Performed By: #### L IPAS #### [facility] [address] [place] [address] Monocytes (Bld) [#/Vol] 0.3 10*3/uL Normal 0.2-0.8 [facility] Comment on above: Performed By: #### L IPAS #### [facility] [address] [place] [address] Monocytes/100 WBC (Bld) 7.7 % Normal [facility] Comment on above: Performed By: #### L IPAS #### [facility] [address] [place] [address] Neutrophils (Bld) [#/Vol] 2.0 10*3/uL Normal 1.4-6.5 [facility] Comment on above: Performed By: #### L IPAS #### [facility] [address] [place] [address] Neutrophils/100 WBC (Bld) 46.5 % Normal [facility] Comment on above: Performed By: #### L IPAS #### [facility] [address] [place] [address] Platelets (Bld) [#/Vol] 187 10*3/uL Normal 130-400 [facility] Comment on above: Performed By: #### L IPAS #### [facility] [address] [place] [address] RBC (Bld) [#/Vol] 4.00 10*6/uL Low 4.20-5.40 [facility] Comment on above: Performed By: #### L IPAS #### [facility] [address] [place] [address] WBC (Bld) [#/Vol] 4.3 10*3/uL Low 4.8-10.8 [facility] Comment on above: Performed By: #### L IPAS #### [facility] [address] [place] [address] CTA ABDOMEN PELVIS W WO CONT RASTon [...] Addison Lorenzo MD 12/14/22 Final result Normal [facility] Comprehensive Metabolic Pane nestor 12-14-2022 Albumin [Mass/Vol] 4.0 g/dL Normal 3.5-4.6 [facility] Comment on above: Performed By: #### L IPAS #### [facility] [address] [place] [address] ALP [Catalytic activity/Vol] 70 U/L Normal 40-130 [facility] Comment on above: Performed By: #### L IPAS #### [facility] [address] [place] [address] ALT [Catalytic activity/Vol] 20 U/L Normal 0-33 [facility] Comment on above: Performed By: #### L IPAS #### [facility] [address] [place] [address] Anion gap [Moles/Vol] 16 mmol/L Critically high 9-15 [facility] Comment on above: Performed By: #### L IPAS #### [facility] [address] [place] [address] AST [Catalytic activity/Vol] 33 U/L Normal 0-35 [facility] Comment on above: Performed By: #### L IPAS #### [facility] [address] [place] [address] Bilirubin [Mass/Vol] 0.3 mg/dL Normal 0.2-0.7 [facility] Comment on above: Performed By: #### L IPAS #### [facility] [address] [place] [address] Calcium [Mass/Vol] 8.8 mg/dL Normal 8.5-9.9 [facility] Comment on above: Performed By: #### L IPAS #### [facility] [address] [place] [address] Chloride [Moles/Vol] 107 mmol/L Normal 95-107 [facility] Comment on above: Performed By: #### L IPAS #### [facility] [address] [place] [address] CO2 [Moles/Vol] 20 mmol/L Normal 20-31 [facility] Comment on above: Performed By: #### L IPAS #### [facility] [address] [place] [address] Creatinine [Mass/Vol] 0.75 mg/dL Normal 0.50-0.90 [facility] Comment on above: Performed By: #### L IPAS #### [facility] [address] [place] [address] GFR >60.0 Normal >60 [facility] Comment on above: Result Comment: Pedi [...] secretion. Performed By: #### L IPAS #### [facility] [address] [place] [address] Globulin (S) [Mass/Vol] 2.5 g/dL Normal 2.3-3.5 [facility] Comment on above: Performed By: #### L IPAS #### [facility] [address] [place] [address] Glucose [Mass/Vol] 88 mg/dL Normal 70-99 [facility] Comment on above: Performed By: #### L IPAS #### [facility] [address] [place] [address] Potassium [Moles/Vol] 3.8 mmol/L Normal 3.4-4.9 [facility] Comment on above: Performed By: #### L IPAS #### [facility] [address] [place] [address] Protein [Mass/Vol] 6.5 g/dL Normal 6.3-8.0 [facility] Comment on above: Performed By: #### L IPAS #### [facility] [address] [place] [address] Sodium [Moles/Vol] 143 mmol/L Normal 135-144 [facility] Comment on above: Performed By: #### L IPAS #### [facility] [address] [place] [address] Urea nitrogen [Mass/Vol] 11 mg/dL Normal 6-20 [facility] Comment on above: Performed By: #### L IPAS #### [facility] [address] [place] [address] Lipaseon 12-14-2022 Lipase [Catalytic activity/Vol] 39 U/L Normal 12-95 [facility] Comment on above: Performed By: #### L IPAS #### [facility] [address] [place] [address] POCT Venouson 12-14-2022 Creatinine [Mass/Vol] 0.8 mg/dL Normal 0.6-1.2 [facility] Comment on above: Performed By: #### P GLU #### [facility] [address] [place] [address] GFR >60 Normal >60 [facility] Comment on above: Result Comment: Adán [...] secretion. Performed By: #### P GLU #### [facility] [address] [place] [address] POC Performed on SEE BELOW Normal [facility] Comment on above: Result Comment: Perf ormed on POC Performed By: #### P GLU #### [facility] [address] [place] [address] POC Sample Type KIRA Normal [facility] Comment on above: Performed By: #### P GLU #### [facility] [address] [place] [address] CNCOon 12-10-2022 CNCO Letter Text Normal [facility] ALLIED HEALTHon 12-09-2022 ALLIED HEALTH Normal [facility] CASE MANAGEMon 12-09-2022 CASE MANAGEM Normal [facility] CBC panel Auto (Bld)on 12-09 Erythrocyte distribution width (RBC) [Ratio] 13.5 % Normal 11.5-15.0 [facility] Comment on above: Order Comment: Speci men Type: BLOOD SPECIMENOrdering Facility: [facility] Address: [address] [place] [address] Performed By: #### 5 8410-2 ####[facility] LABCLIA [id number] [place] [address] [place] Hematocrit (Bld) [Volume fraction] 34.9 % Low 36.0-46.0 [facility] Comment on above: Order Comment: Speci men Type: BLOOD SPECIMENOrdering Facility: [facility] Address: [address] [place] [address] Performed By: #### 5 8410-2 ####[facility] LABCLIA [id number] [place] [address] [place] Hemoglobin (Bld) [Mass/Vol] 11.7 g/dL Normal 11.5-15.5 [facility] Comment on above: Order Comment: Speci men Type: BLOOD SPECIMENOrdering Facility: [facility] Address: [address] [place] [address] Performed By: #### 5 8410-2 ####[facility] LABCLIA [id number] [place] [address] [place] MCH (RBC) [Entitic mass] 31.0 pg Normal 26.0-34.0 [facility] Comment on above: Order Comment: Speci men Type: BLOOD SPECIMENOrdering Facility: [facility] Address: [address] [place] [address] Performed By: #### 5 8410-2 ####[facility] LABCLIA [id number] [place] [address] [place] MCHC (RBC) [Mass/Vol] 33.5 g/dL Normal 30.5-36.0 [facility] Comment on above: Order Comment: Speci men Type: BLOOD SPECIMENOrdering Facility: [facility] Address: [address] [place] [address] Performed By: #### 5 8410-2 ####[facility] LABIA [id number] [place] [address] [place] MCV (RBC) [Entitic vol] 92.3 fL Normal 80.0-100.0 [facility] Comment on above: Order Comment: Speci men Type: BLOOD SPECIMENOrdering Facility: [facility] Address: [address] [place] [address] Performed By: #### 5 8410-2 ####[facility] LABCLIA [id number] [place] [address] [place] Nucleated RBC (Bld) [#/Vol] 10*3/uL Normal <0.01 [facility] Comment on above: Order Comment: Speci men Type: BLOOD SPECIMENOrdering Facility: [facility] Address: [address] [place] [address] Performed By: #### 5 8410-2 ####[facility] LABCLIA [id number] [place] [address] [place] Platelet mean volume (Bld) [Entitic vol] 12.6 fL Normal 9.0-12.7 [facility] Comment on above: Order Comment: Speci men Type: BLOOD SPECIMENOrdering Facility: [facility] Address: [address] [place] [address] Performed By: #### 5 8410-2 ####[facility] LABCLIA [id number] [place] [address] [place] Platelets (Bld) [#/Vol] 172 10*3/uL Normal 150-400 [facility] Comment on above: Order Comment: Speci men Type: BLOOD SPECIMENOrdering Facility: [facility] Address: [address] [place] [address] Performed By: #### 5 8410-2 ####[facility] LABCLIA [id number] [place] [address] [place] RBC (Bld) [#/Vol] 3.78 10*6/uL Low 3.90-5.20 [facility] Comment on above: Order Comment: Speci men Type: BLOOD SPECIMENOrdering Facility: [facility] Address: [address] [place] [address] Performed By: #### 5 8410-2 ####[facility] LABCLIA [id number] [place] [address] [place] WBC (Bld) [#/Vol] 3.25 10*3/uL Low 3.70-11.00 [facility] Comment on above: Order Comment: Speci men Type: BLOOD SPECIMENOrdering Facility: [facility] Address: [address] [place] [address] Performed By: #### 5 8410-2 ####[facility] LABCLIA [id number] [address] [address] [place] CNDSon 12-09-2022 CNDS Normal [facility] CNPNon 12-09-2022 CNPN Normal [facility] CONSULT PROGon 12-09-2022 CONSULT PROG Normal [facility] Comprehensive metabolic 2000 panelon 12-09-2022 Albumin [Mass/Vol] 3.6 g/dL Low 3.9-4.9 [facility] Comment on above: Order Comment: Speci men Type: BLOOD SPECIMENOrdering Facility: [facility] Address: [address] [place] [address] Performed By: #### 2 777-1, , ####[facility] LABCLIA [id number] [place] [address] [place] ALP [Catalytic activity/Vol] 59 U/L Normal 34-123 [facility] Comment on above: Order Comment: Speci men Type: BLOOD SPECIMENOrdering Facility: [facility] Address: [address] [place] [address] Performed By: #### 2 777-1, , ####[facility] LABCLIA [id number] [place] [address] [place] ALT [Catalytic activity/Vol] 13 U/L Normal 7-38 [facility] Comment on above: Order Comment: Speci men Type: BLOOD SPECIMENOrdering Facility: [facility] Address: [address] [place] [id number] Performed By: #### 2 777-1, 25549-7, ####[facility] LABCLIA [id number] [place] [id number] [place] Anion gap [Moles/Vol] 9 mmol/L Normal 9-18 [facility] Comment on above: Order Comment: Speci men Type: BLOOD SPECIMENOrdering Facility: [facility] Address: [address] [place] [address] Performed By: #### 2 777-1, , ####[facility] LABCLIA [id number] [address] [address] [place] AST [Catalytic activity/Vol] 22 U/L Normal 13-35 [facility] Comment on above: Order Comment: Speci men Type: BLOOD SPECIMENOrdering Facility: [facility] Address: [address] [place] [address] Performed By: #### 2 777-1, , ####[facility] LABIA [id number] [place] [address] [place] Bilirubin [Mass/Vol] 0.2 mg/dL Normal 0.2-1.3 [facility] Comment on above: Order Comment: Speci men Type: BLOOD SPECIMENOrdering Facility: [facility] Address: [address] [place] [address] Performed By: #### 2 777-1, , ####[facility] LABIA [id number] [place] [address] [place] Calcium [Mass/Vol] 8.7 mg/dL Normal 8.5-10.2 [facility] Comment on above: Order Comment: Speci men Type: BLOOD SPECIMENOrdering Facility: [facility] Address: [address] [place] [address] Performed By: #### 2 777-1, , ####[facility] LABIA [id number] [place] [id number] [place] Chloride [Moles/Vol] 108 mmol/L High 97-105 [facility] Comment on above: Order Comment: Speci men Type: BLOOD SPECIMENOrdering Facility: [facility] Address: [address] [place] [address] Performed By: #### 2 777-1, , ####[facility] LABIA [id number] [place] [address] [place] CO2 [Moles/Vol] 23 mmol/L Normal 22-30 [facility] Comment on above: Order Comment: Speci men Type: BLOOD SPECIMENOrdering Facility: [facility] Address: [address] [place] [address] Performed By: #### 2 777-1, , ####[facility] LABIA [id number] [place] [address] [place] Creatinine [Mass/Vol] 0.61 mg/dL Normal 0.58-0.96 [facility] Comment on above: Order Comment: Speci men Type: BLOOD SPECIMENOrdering Facility: [facility] Address: [address] [place] [address] Performed By: #### 2 777-1, , ####[facility] LABIA [id number] [place] [address] [place] Creatinine and Glomerular filtration rate.predicted panel (S/P/Bld) 121 mL/min/1.73m??? Normal >=60 [facility] Comment on above: Order Comment: Speci men Type: BLOOD SPECIMENOrdering Facility: [facility] Address: [address] [place] [address] Result Comment: Jessica mated Glomerular Filtration Rate [...] GFR. Performed By: #### 2 777-1, , ####[facility] LABIA [id number] [place] [id number] [place] Glucose [Mass/Vol] 79 mg/dL Normal 74-99 [facility] Comment on above: Order Comment: Speci men Type: BLOOD SPECIMENOrdering Facility: [facility] Address: [address] [place] [address] Result Comment: The [place] [employer] (ADA) provides guidance for cutoff [...] Standards of Medical Care in Diabetes 2016, [place] [employer]. Diabetes Care. 2016.39(Suppl 1). Performed By: #### 2 777-1, , ####[facility] LABCLIA [id number] [place] [address] [place] Potassium [Moles/Vol] 4.2 mmol/L Normal 3.7-5.1 [facility] Comment on above: Order Comment: Geraldo marrero Type: BLOOD SPECIMENOrdering Facility: [facility] Address: [address] [place] [address] Performed By: #### 2 777-1, , ####[facility] LABCLIA [id number] [place] [id number] [place] Protein [Mass/Vol] 5.8 g/dL Low 6.3-8.0 [facility] Comment on above: Order Comment: Speci men Type: BLOOD SPECIMENOrdering Facility: [facility] Address: [address] [place] [address] Performed By: #### 2 777-1, , ####[facility] LABCLIA [id number] [place] [address] [place] Sodium [Moles/Vol] 140 mmol/L Normal 136-144 [facility] Comment on above: Order Comment: Speci men Type: BLOOD SPECIMENOrdering Facility: [facility] Address: [address] [place] [address] Performed By: #### 2 777-1, 13426-9, ####[facility] LABCLIA [id number] [place] [address] [place] Urea nitrogen [Mass/Vol] 16 mg/dL Normal 7-21 [facility] Comment on above: Order Comment: Speci men Type: BLOOD SPECIMENOrdering Facility: [facility] Address: [address] [place] [address] Performed By: #### 2 777-1, 95490-1, ####[facility] LABCLIA [id number] [place] [address] [place] Magnesium SerPl-mCncon 12-09 Magnesium [Mass/Vol] 2.0 mg/dL Normal 1.7-2.3 [facility] Comment on above: Order Comment: Speci men Type: BLOOD SPECIMENOrdering Facility: [facility] Address: [address] [place] [address] Performed By: #### 2 777-1, 02170-3, ####[facility] LABIA [id number] [place] [id number] [place] NURSING PROGon 12-09-2022 NURSING PROG Normal [facility] PT EDon 12-09-2022 PT ED Normal [facility] Phosphate SerPl-mCncon 12-09 Phosphate [Mass/Vol] 1.8 mg/dL Low 2.7-4.8 [facility] Comment on above: Order Comment: Speci men Type: BLOOD SPECIMENOrdering Facility: [facility] Address: [address] [place] [address] Result Comment: Resu lt rechecked. Performed By: #### 2 777-1, 60634-3, 13387-8 ####[facility] LABIA [id number] [place] [address] [place] ALLIED HEALTHon 12-08-2022 ALLIED HEALTH Normal [facility] CBC panel Auto (Bld)on 12-08 Erythrocyte distribution width (RBC) [Ratio] 13.4 % Normal 11.5-15.0 [facility] Comment on above: Order Comment: Speci men Type: BLOOD SPECIMENOrdering Facility: [facility] Address: [address] [place] [address] Performed By: #### 5 8410-2 ####[facility] LABIA [id number] [place] [address] [place] Hematocrit (Bld) [Volume fraction] 32.5 % Low 36.0-46.0 [facility] Comment on above: Order Comment: Speci men Type: BLOOD SPECIMENOrdering Facility: [facility] Address: [address] [place] [address] Performed By: #### 5 8410-2 ####[facility] LABIA [id number] [place] [address] [place] Hemoglobin (Bld) [Mass/Vol] 11.1 g/dL Low 11.5-15.5 [facility] Comment on above: Order Comment: Speci men Type: BLOOD SPECIMENOrdering Facility: [facility] Address: [address] [place] [address] Performed By: #### 5 8410-2 ####[facility] LABIA [id number] [place] [address] [place] MCH (RBC) [Entitic mass] 31.2 pg Normal 26.0-34.0 [facility] Comment on above: Order Comment: Speci men Type: BLOOD SPECIMENOrdering Facility: [facility] Address: [address] [place] [address] Performed By: #### 5 8410-2 ####[facility] LABCLIA [id number] [place] [address] [place] MCHC (RBC) [Mass/Vol] 34.2 g/dL Normal 30.5-36.0 [facility] Comment on above: Order Comment: Speci men Type: BLOOD SPECIMENOrdering Facility: [facility] Address: [address] [place] [address] Performed By: #### 5 8410-2 ####[facility] LABIA [id number] [place] [address] [place] MCV (RBC) [Entitic vol] 91.3 fL Normal 80.0-100.0 [facility] Comment on above: Order Comment: Speci men Type: BLOOD SPECIMENOrdering Facility: [facility] Address: [address] [place] [address] Performed By: #### 5 8410-2 ####[facility] LABIA [id number] [place] [address] [place] Nucleated RBC (Bld) [#/Vol] 10*3/uL Normal <0.01 [facility] Comment on above: Order Comment: Speci men Type: BLOOD SPECIMENOrdering Facility: [facility] Address: [address] [place] [address] Performed By: #### 5 8410-2 ####[facility] LABIA [id number] [place] [address] [place] Platelet mean volume (Bld) [Entitic vol] 12.4 fL Normal 9.0-12.7 [facility] Comment on above: Order Comment: Speci men Type: BLOOD SPECIMENOrdering Facility: [facility] Address: [address] [place] [address] Performed By: #### 5 8410-2 ####[facility] LABIA [id number] [place] [address] [place] Platelets (Bld) [#/Vol] 161 10*3/uL Normal 150-400 [facility] Comment on above: Order Comment: Speci men Type: BLOOD SPECIMENOrdering Facility: [facility] Address: [address] [place] [address] Performed By: #### 5 8410-2 ####[facility] LABCLIA [id number] [place] [address] [place] RBC (Bld) [#/Vol] 3.56 10*6/uL Low 3.90-5.20 [facility] Comment on above: Order Comment: Speci men Type: BLOOD SPECIMENOrdering Facility: [facility] Address: [address] [place] [address] Performed By: #### 5 8410-2 ####[facility] LABCLIA [id number] [place] [address] [place] WBC (Bld) [#/Vol] 2.94 10*3/uL Low 3.70-11.00 [facility] Comment on above: Order Comment: Speci men Type: BLOOD SPECIMENOrdering Facility: [facility] Address: [address] [place] [address] Performed By: #### 5 8410-2 ####[facility] LABCLIA [id number] [place] [address] [place] CNPNon 12-08-2022 CNPN Normal [facility] CONSULT PROGon 12-08-2022 CONSULT PROG Normal [facility] Comprehensive metabolic 2000 panelon 12-08-2022 Albumin [Mass/Vol] 3.1 g/dL Low 3.9-4.9 [facility] Comment on above: Order Comment: Speci men Type: BLOOD SPECIMENOrdering Facility: [facility] Address: [address] [place] [address] Performed By: #### 2 4323-8, 2777-1, 98090-1 ####[facility] LABCLIA [id number] [place] [id number] [address] [place] ALP [Catalytic activity/Vol] 57 U/L Normal 34-123 [facility] Comment on above: Order Comment: Speci men Type: BLOOD SPECIMENOrdering Facility: [facility] Address: [address] [place] [address] Performed By: #### 2 4323-8, 2776-02, ####[facility] LABCLIA [id number] [place] [address] [place] ALT [Catalytic activity/Vol] 16 U/L Normal 7-38 [facility] Comment on above: Order Comment: Speci men Type: BLOOD SPECIMENOrdering Facility: [facility] Address: [address] [place] [address] Performed By: #### 2 4323-8, 2776-02, ####[facility] LABCLIA [id number] [place] [address] [place] Anion gap [Moles/Vol] 9 mmol/L Normal 9-18 [facility] Comment on above: Order Comment: Speci men Type: BLOOD SPECIMENOrdering Facility: [facility] Address: [address] [place] [address] Performed By: #### 2 4323-8, 2776-02, ####[facility] LABCLIA [id number] [place] [address] [place] AST [Catalytic activity/Vol] 26 U/L Normal 13-35 [facility] Comment on above: Order Comment: Speci men Type: BLOOD SPECIMENOrdering Facility: [facility] Address: [address] [place] [address] Performed By: #### 2 4323-8, 2776-02, ####[facility] LABCLIA [id number] [address] [address] [place] Bilirubin [Mass/Vol] 0.2 mg/dL Normal 0.2-1.3 [facility] Comment on above: Order Comment: Speci men Type: BLOOD SPECIMENOrdering Facility: [facility] Address: [address] [place] [place] [id number] Performed By: #### 2 4323-8, 2776-02, ####[facility] LABCLIA [id number] [address] [address] [place] Calcium [Mass/Vol] 8.2 mg/dL Low 8.5-10.2 [facility] Comment on above: Order Comment: Speci men Type: BLOOD SPECIMENOrdering Facility: [facility] Address: [address] [place] [address] Performed By: #### 2 4323-8, 2776-02, ####[facility] LABCLIA [id number] [place] [address] [place] Chloride [Moles/Vol] 109 mmol/L High 97-105 [facility] Comment on above: Order Comment: Speci men Type: BLOOD SPECIMENOrdering Facility: [facility] Address: [address] [place] [id number] Performed By: #### 2 4323-8, 2776-02, ####[facility] LABCLIA [id number] [place] [id number] [place] CO2 [Moles/Vol] 23 mmol/L Normal 22-30 [facility] Comment on above: Order Comment: Speci men Type: BLOOD SPECIMENOrdering Facility: [facility] Address: [address] [place] [id number] Performed By: #### 2 4323-8, 2776-02, ####[facility] LABCLIA [id number] [place] [phone] [place] Creatinine [Mass/Vol] 0.73 mg/dL Normal 0.58-0.96 [facility] Comment on above: Order Comment: Speci men Type: BLOOD SPECIMENOrdering Facility: [facility] Address: [address] [place] [address] Performed By: #### 2 4323-8, 2777-1, ####[facility] LABIA [id number] [place] [phone] [place] Creatinine and Glomerular filtration rate.predicted panel (S/P/Bld) 112 mL/min/1.73m??? Normal >=60 [facility] Comment on above: Order Comment: Geraldo marrero Type: BLOOD SPECIMENOrdering Facility: [facility] Address: [address] [place] [address] Result Comment: Jessica mated Glomerular Filtration Rate [...] GFR. Performed By: #### 2 4323-8, 2777-, ####[facility] LABIA [id number] [place] [id number] [place] Glucose [Mass/Vol] 119 mg/dL High 74-99 [facility] Comment on above: Order Comment: Geraldo marrero Type: BLOOD SPECIMENOrdering Facility: [facility] Address: [address] [place] [address] Result Comment: The [place] [employer] (ADA) provides guidance for cutoff [...] Standards of Medical Care in Diabetes 2016, [place] [employer]. Diabetes Care. 2016.39(Suppl 1). Performed By: #### 2 4323-8, 2776-02, ####[facility] LABCLIA [id number] [place] [address] [place] Potassium [Moles/Vol] 3.5 mmol/L Low 3.7-5.1 [facility] Comment on above: Order Comment: Speci men Type: BLOOD SPECIMENOrdering Facility: [facility] Address: [address] [place] [address] Performed By: #### 2 4323-8, 2776-02, ####[facility] LABCLIA [id number] [place] [address] [place] Protein [Mass/Vol] 5.2 g/dL Low 6.3-8.0 [facility] Comment on above: Order Comment: Speci men Type: BLOOD SPECIMENOrdering Facility: [facility] Address: [address] [place] [address] Performed By: #### 2 4323-8, 2776-02, ####[facility] LABCLIA [id number] [place] [address] [place] Sodium [Moles/Vol] 141 mmol/L Normal 136-144 [facility] Comment on above: Order Comment: Speci men Type: BLOOD SPECIMENOrdering Facility: [facility] Address: [address] [place] [address] Performed By: #### 2 4323-8, 2776-02, ####[facility] LABCLIA [id number] [address] [address] [place] Urea nitrogen [Mass/Vol] 10 mg/dL Normal 7-21 [facility] Comment on above: Order Comment: Speci men Type: BLOOD SPECIMENOrdering Facility: [facility] Address: [address] [place] [address] Performed By: #### 2 4323-8, 2776-02, ####[facility] LABCLIA [id number] [place] [id number] [place] Magnesium SerPl-ncon 12-08 Magnesium [Mass/Vol] 2.1 mg/dL Normal 1.7-2.3 [facility] Comment on above: Order Comment: Speci men Type: BLOOD SPECIMENOrdering Facility: [facility] Address: [address] [place] [address] Performed By: #### 2 4323-8, 2777, ####[facility] LABIA [id number] [place] [address] [place] Phosphate SerPl-mCncon 12-08 Phosphate [Mass/Vol] 4.7 mg/dL Normal 2.7-4.8 [facility] Comment on above: Order Comment: Speci men Type: BLOOD SPECIMENOrdering Facility: [facility] Address: [address] [place] [address] Performed By: #### 2 4323-8, 27708-15, ####[facility] [id number] [place] [address] [place] CBC panel Auto (Bld)on 12-07 Erythrocyte distribution width (RBC) [Ratio] 13.2 % Normal 11.5-15.0 [facility] Comment on above: Order Comment: Speci men Type: BLOOD SPECIMENOrdering Facility: [facility] Address: [address] [place] [address] Performed By: #### 5 8410-2 ####[facility] [id number] [place] [address] [place] [place] Hematocrit (Bld) [Volume fraction] 33.9 % Low 36.0-46.0 [facility] Comment on above: Order Comment: Speci men Type: BLOOD SPECIMENOrdering Facility: [facility] Address: [address] [place] [address] Performed By: #### 5 8410-2 ####[facility] LABIA [id number] [place] [address] [place] Hemoglobin (Bld) [Mass/Vol] 11.6 g/dL Normal 11.5-15.5 [facility] Comment on above: Order Comment: Speci men Type: BLOOD SPECIMENOrdering Facility: [facility] Address: [address] [place] [address] Performed By: #### 5 8410-2 ####[facility] LABIA [id number] [place] [address] [place] MCH (RBC) [Entitic mass] 30.9 pg Normal 26.0-34.0 [facility] Comment on above: Order Comment: Speci men Type: BLOOD SPECIMENOrdering Facility: [facility] Address: [address] [place] [address] Performed By: #### 5 8410-2 ####[facility] [id number] [place] [address] [place] MCHC (RBC) [Mass/Vol] 34.2 g/dL Normal 30.5-36.0 [facility] Comment on above: Order Comment: Speci men Type: BLOOD SPECIMENOrdering Facility: [facility] Address: [address] [place] [address] Performed By: #### 5 8410-2 ####[facility] [id number] [place] [address] [place] MCV (RBC) [Entitic vol] 90.4 fL Normal 80.0-100.0 [facility] Comment on above: Order Comment: Speci men Type: BLOOD SPECIMENOrdering Facility: [facility] Address: [address] [place] [address] Performed By: #### 5 8410-2 ####[facility] [id number] [place] [address] [place] Nucleated RBC (Bld) [#/Vol] 10*3/uL Normal <0.01 [facility] Comment on above: Order Comment: Speci men Type: BLOOD SPECIMENOrdering Facility: [facility] Address: [address] [place] [address] Performed By: #### 5 8410-2 ####[facility] LABIA [id number] [place] [address] [place] Platelet mean volume (Bld) [Entitic vol] 12.5 fL Normal 9.0-12.7 [facility] Comment on above: Order Comment: Speci men Type: BLOOD SPECIMENOrdering Facility: [facility] Address: [address] [place] [address] Performed By: #### 5 8410-2 ####[facility] LABIA [id number] [place] [address] [place] Platelets (Bld) [#/Vol] 175 10*3/uL Normal 150-400 [facility] Comment on above: Order Comment: Speci men Type: BLOOD SPECIMENOrdering Facility: [facility] Address: [address] [place] [address] Performed By: #### 5 8410-2 ####[facility] LABIA [id number] [place] [address] [place] RBC (Bld) [#/Vol] 3.75 10*6/uL Low 3.90-5.20 [facility] Comment on above: Order Comment: Speci men Type: BLOOD SPECIMENOrdering Facility: [facility] Address: [address] [place] [address] Performed By: #### 5 8410-2 ####[facility] LABIA [id number] [place] [address] [place] WBC (Bld) [#/Vol] 2.61 10*3/uL Low 3.70-11.00 [facility] Comment on above: Order Comment: Speci men Type: BLOOD SPECIMENOrdering Facility: [facility] Address: [address] [place] [address] Performed By: #### 5 8410-2 ####[facility] LABCLIA [id number] [address] [address] [place] CONSULTon 12-07-2022 CONSULT Normal [facility] CONSULT PROGon 12-07-2022 CONSULT PROG Normal [facility] Comprehensive metabolic 2000 panelon 12-07-2022 Albumin [Mass/Vol] 3.4 g/dL Low 3.9-4.9 [facility] Comment on above: Order Comment: Speci men Type: BLOOD SPECIMENOrdering Facility: [facility] Address: [address] [place] [address] Performed By: #### 2 4323-8 ####[facility] LABCLIA [id number] [place] [address] [place] ALP [Catalytic activity/Vol] 62 U/L Normal 34-123 [facility] Comment on above: Order Comment: Speci men Type: BLOOD SPECIMENOrdering Facility: [facility] Address: [address] [place] [address] Performed By: #### 2 4323-8 ####[facility] LABCLIA [id number] [place] [address] [place] ALT [Catalytic activity/Vol] 19 U/L Normal 7-38 [facility] Comment on above: Order Comment: Speci men Type: BLOOD SPECIMENOrdering Facility: [facility] Address: [address] [place] [address] Performed By: #### 2 4323-8 ####[facility] LABCLIA [id number] [place] [id number] [place] Anion gap [Moles/Vol] 9 mmol/L Normal 9-18 [facility] Comment on above: Order Comment: Speci men Type: BLOOD SPECIMENOrdering Facility: [facility] Address: [address] [place] [address] Performed By: #### 2 4323-8 ####[facility] LABCLIA [id number] [place] [address] [place] AST [Catalytic activity/Vol] 31 U/L Normal 13-35 [facility] Comment on above: Order Comment: Speci men Type: BLOOD SPECIMENOrdering Facility: [facility] Address: [address] [place] [address] Performed By: #### 2 4323-8 ####[facility] LABCLIA [id number] [place] [address] [place] Bilirubin [Mass/Vol] 0.3 mg/dL Normal 0.2-1.3 [facility] Comment on above: Order Comment: Speci men Type: BLOOD SPECIMENOrdering Facility: [facility] Address: [address] [place] [address] Performed By: #### 2 4323-8 ####[facility] LABCLIA [id number] [place] [address] [place] Calcium [Mass/Vol] 8.6 mg/dL Normal 8.5-10.2 [facility] Comment on above: Order Comment: Speci men Type: BLOOD SPECIMENOrdering Facility: [facility] Address: [address] [place] [address] Performed By: #### 2 4323-8 ####[facility] LABCLIA [id number] [place] [address] [place] Chloride [Moles/Vol] 108 mmol/L High 97-105 [facility] Comment on above: Order Comment: Speci men Type: BLOOD SPECIMENOrdering Facility: [facility] Address: [address] [place] [address] Performed By: #### 2 4323-8 ####[facility] LABCLIA [id number] [place] [address] [place] CO2 [Moles/Vol] 22 mmol/L Normal 22-30 [facility] Comment on above: Order Comment: Speci men Type: BLOOD SPECIMENOrdering Facility: [facility] Address: [address] [place] [address] Performed By: #### 2 4323-8 ####[facility] LABIA [id number] [place] [address] [place] Creatinine [Mass/Vol] 0.85 mg/dL Normal 0.58-0.96 [facility] Comment on above: Order Comment: Speci men Type: BLOOD SPECIMENOrdering Facility: [facility] Address: [address] [place] [address] Performed By: #### 2 4323-8 ####[facility] LABIA [id number] [place] [address] [place] Creatinine and Glomerular filtration rate.predicted panel (S/P/Bld) 93 mL/min/1.73m??? Normal >=60 [facility] Comment on above: Order Comment: Speci men Type: BLOOD SPECIMENOrdering Facility: [facility] Address: [address] [place] [address] Result Comment: Jessica mated Glomerular Filtration Rate [...] actual GFR. Performed By: #### 2 4323-8 ####[facility]IA [id number] [place] [address] [place] Glucose [Mass/Vol] 80 mg/dL Normal 74-99 [facility] Comment on above: Order Comment: Speci men Type: BLOOD SPECIMENOrdering Facility: [facility] Address: [address] [place] [address] Result Comment: The [place] [employer] (ADA) provides guidance for cutoff [...] Standards of Medical Care in Diabetes 2016, [place] [employer]. Diabetes Care. 2016.39(Suppl 1). Performed By: #### 2 4323-8 ####[facility] LABCLIA [id number] [place] [address] [place] Potassium [Moles/Vol] 3.7 mmol/L Normal 3.7-5.1 [facility] Comment on above: Order Comment: Geraldo marrero Type: BLOOD SPECIMENOrdering Facility: [facility] Address: [address] [place] [address] Performed By: #### 2 4323-8 ####[facility] LABCLIA [id number] [place] [address] [place] Protein [Mass/Vol] 5.5 g/dL Low 6.3-8.0 [facility] Comment on above: Order Comment: Geraldo marrero Type: BLOOD SPECIMENOrdering Facility: [facility] Address: [address] [place] [address] Performed By: #### 2 4323-8 ####[facility] LABCLIA [id number] [place] [address] [place] Sodium [Moles/Vol] 139 mmol/L Normal 136-144 [facility] Comment on above: Order Comment: Lyssai men Type: BLOOD SPECIMENOrdering Facility: [facility] Address: [address] [place] [address] Performed By: #### 2 4323-8 ####[facility] LABCLIA [id number] [place] [address] [place] Urea nitrogen [Mass/Vol] 12 mg/dL Normal 7-21 [facility] Comment on above: Order Comment: Speci men Type: BLOOD SPECIMENOrdering Facility: [facility] Address: [address] [place] [address] Performed By: #### 2 4323-8 ####[facility] LABCLIA [id number] [place] [address] [place] NURSING PROGon 12-07-2022 NURSING PROG Normal [facility] XR CHEST 1V PORT POST PICC - NBon 12-07-2022 XR CHEST 1V PORT POST PICC -NB Normal [facility] CASE MGT INIT ASSESon 2022 CASE MGT INIT ASSES Normal [facility] CBC W Auto Differential pane l (Bld)on 12-06-2022 Basophils (Bld) [#/Vol] 10*3/uL Normal <0.11 [facility] Comment on above: Order Comment: Speci men Type: BLOOD SPECIMENOrdering Facility: [facility] Address: [address] [place] [address] Performed By: #### 5 7021-8 ####[facility] LABCLIA [id number] [place] [address] [place] Basophils/100 WBC (Bld) 0.7 % Normal [facility] Comment on above: Order Comment: Speci men Type: BLOOD SPECIMENOrdering Facility: [facility] Address: [address] [place] [address] Performed By: #### 5 7021-8 ####[facility] LABCLIA [id number] [place] [address] [place] Differential cell count method Nom (Bld) Auto Normal [facility] Comment on above: Order Comment: Speci men Type: BLOOD SPECIMENOrdering Facility: [facility] Address: [address] [place] [address] Performed By: #### 5 7021-8 ####[facility] LABCLIA [id number] [place] [address] [place] Eosinophils (Bld) [#/Vol] 0.09 10*3/uL Normal <0.46 [facility] Comment on above: Order Comment: Speci men Type: BLOOD SPECIMENOrdering Facility: [facility] Address: [address] [place] [address] Performed By: #### 5 7021-8 ####[facility] LABCLIA [id number] [place] [address] [place] Eosinophils/100 WBC (Bld) 2.9 % Normal [facility] Comment on above: Order Comment: Speci men Type: BLOOD SPECIMENOrdering Facility: [facility] Address: [address] [place] [address] Performed By: #### 5 7021-8 ####[facility] LABCLIA [id number] [place] [address] [place] Erythrocyte distribution width (RBC) [Ratio] 13.2 % Normal 11.5-15.0 [facility] Comment on above: Order Comment: Speci men Type: BLOOD SPECIMENOrdering Facility: [facility] Address: [address] [place] [address] Performed By: #### 5 7021-8 ####[facility] LABCLIA [id number] [place] [address] [place] Hematocrit (Bld) [Volume fraction] 33.7 % Low 36.0-46.0 [facility] Comment on above: Order Comment: Speci men Type: BLOOD SPECIMENOrdering Facility: [facility] Address: [address] [place] [address] Performed By: #### 5 7021-8 ####[facility] LABCLIA [id number] [place] [address] [place] Hemoglobin (Bld) [Mass/Vol] 11.6 g/dL Normal 11.5-15.5 [facility] Comment on above: Order Comment: Speci men Type: BLOOD SPECIMENOrdering Facility: [facility] Address: [address] [place] [address] Performed By: #### 5 7021-8 ####[facility] LABCLIA [id number] [place] [address] [place] Immature granulocytes (Bld) [#/Vol] 10*3/uL Normal <0.10 [facility] Comment on above: Order Comment: Speci men Type: BLOOD SPECIMENOrdering Facility: [facility] Address: [address] [place] [address] Performed By: #### 5 7021-8 ####[facility] LABCLIA [id number] [address] [place] Immature granulocytes/100 WBC (Bld) 0.3 % Normal [facility] Comment on above: Order Comment: Speci men Type: BLOOD SPECIMENOrdering Facility: [facility] Address: [address] [place] [address] Performed By: #### 5 7021-8 ####[facility] LABCLIA [id number] [place] [address] [place] Lymphocytes (Bld) [#/Vol] 1.31 10*3/uL Normal 1.00-4.00 [facility] Comment on above: Order Comment: Speci men Type: BLOOD SPECIMENOrdering Facility: [facility] Address: [address] [place] [address] Performed By: #### 5 7021-8 ####[facility] LABCL[facility] [id number] [place] [address] [place] Lymphocytes/100 WBC (Bld) 42.8 % Normal [facility] Comment on above: Order Comment: Speci men Type: BLOOD SPECIMENOrdering Facility: [facility] Address: [address] [place] [address] Performed By: #### 5 7021-8 ####[facility] LABCL[facility] [id number] [place] [address] [place] MCH (RBC) [Entitic mass] 30.8 pg Normal 26.0-34.0 [facility] Comment on above: Order Comment: Speci men Type: BLOOD SPECIMENOrdering Facility: [facility] Address: [address] [place] [address] Performed By: #### 5 7021-8 ####[facility] LABCLIA [id number] [place] [address] [place] MCHC (RBC) [Mass/Vol] 34.4 g/dL Normal 30.5-36.0 [facility] Comment on above: Order Comment: Speci men Type: BLOOD SPECIMENOrdering Facility: [facility] Address: [address] [place] [address] Performed By: #### 5 7021-8 ####[facility] [id number] [place] [address] [place] MCV (RBC) [Entitic vol] 89.4 fL Normal 80.0-100.0 [facility] Comment on above: Order Comment: Speci men Type: BLOOD SPECIMENOrdering Facility: [facility] Address: [address] [place] [address] Performed By: #### 5 7021-8 ####[facility] [id number] [place] [address] [place] Monocytes (Bld) [#/Vol] 0.24 10*3/uL Normal <0.87 [facility] Comment on above: Order Comment: Speci men Type: BLOOD SPECIMENOrdering Facility: [facility] Address: [address] [place] [address] Performed By: #### 5 7021-8 ####[facility] LABCLIA [id number] [address] [place] Monocytes/100 WBC (Bld) 7.8 % Normal [facility] Comment on above: Order Comment: Speci men Type: BLOOD SPECIMENOrdering Facility: [facility] Address: [address] [place] [address] Performed By: #### 5 7021-8 ####[facility] LABCLIA [id number] [place] [address] [place] Neutrophils (Bld) [#/Vol] 1.39 10*3/uL Low 1.45-7.50 [facility] Comment on above: Order Comment: Speci men Type: BLOOD SPECIMENOrdering Facility: [facility] Address: [address] [place] [address] Performed By: #### 5 7021-8 ####[facility] LABCL[facility] [id number] [place] [address] [place] Neutrophils/100 WBC (Bld) 45.5 % Normal [facility] Comment on above: Order Comment: Speci men Type: BLOOD SPECIMENOrdering Facility: [facility] Address: [address] [place] [address] Performed By: #### 5 7021-8 ####[facility] LABCL[facility] [id number] [place] [address] [place] Nucleated RBC (Bld) [#/Vol] 10*3/uL Normal <0.01 [facility] Comment on above: Order Comment: Speci men Type: BLOOD SPECIMENOrdering Facility: [facility] Address: [address] [place] [address] Performed By: #### 5 7021-8 ####[facility] LABCL[facility] [id number] [place] [address] [place] Nucleated RBC/100 WBC (Bld) [Ratio] 0.0 /100 WBC Normal [facility] Comment on above: Order Comment: Speci men Type: BLOOD SPECIMENOrdering Facility: [facility] Address: [address] [place] [address] Performed By: #### 5 7021-8 ####[facility] LABCL[facility] [id number] [place] [address] [place] Platelet mean volume (Bld) [Entitic vol] 11.9 fL Normal 9.0-12.7 [facility] Comment on above: Order Comment: Speci men Type: BLOOD SPECIMENOrdering Facility: [facility] Address: [address] [place] [address] Performed By: #### 5 7021-8 ####[facility] LABCLIA [id number] [place] [address] [place] Platelets (Bld) [#/Vol] 163 10*3/uL Normal 150-400 [facility] Comment on above: Order Comment: Speci men Type: BLOOD SPECIMENOrdering Facility: [facility] Address: [address] [place] [address] Performed By: #### 5 7021-8 ####[facility] [id number] [place] [address] [place] RBC (Bld) [#/Vol] 3.77 10*6/uL Low 3.90-5.20 [facility] Comment on above: Order Comment: Speci men Type: BLOOD SPECIMENOrdering Facility: [facility] Address: [address] [place] [address] Performed By: #### 5 7021-8 ####[facility] [id number] [place] [address] [place] WBC (Bld) [#/Vol] 3.06 10*3/uL Low 3.70-11.00 [facility] Comment on above: Order Comment: Speci men Type: BLOOD SPECIMENOrdering Facility: [facility] Address: [address] [place] [address] Performed By: #### 5 7021-8 ####[facility] LABCLIA [id number] [place] [id number] [place] CTA ABD/PELV W IVCONon 12-06 CTA ABD/PELV W IVCON Normal [facility] metabolic 2000 panelon 12-06-2022 Albumin [Mass/Vol] 3.6 g/dL Low 3.9-4.9 [facility] Comment on above: Order Comment: Speci men Type: BLOOD SPECIMENOrdering Facility: [facility] Address: [address] [place] [address] Performed By: #### 2 4323-8, 94223-2, 3040-3, 2777-1 ####[facility] LABCL[facility] [id number] [place] [address] [place] ALP [Catalytic activity/Vol] 61 U/L Normal 34-123 [facility] Comment on above: Order Comment: Speci men Type: BLOOD SPECIMENOrdering Facility: [facility] Address: [address] [place] [address] Performed By: #### 2 4323-8, 26298-8, 3040-3, 2777-1 ####[facility] LABCLIA [id number] [place] [address] [place] ALT [Catalytic activity/Vol] 16 U/L Normal 7-38 [facility] Comment on above: Order Comment: Speci men Type: BLOOD SPECIMENOrdering Facility: [facility] Address: [address] [place] [address] Performed By: #### 2 4323-8, 80262-4, 3040-3, 2777-1 ####[facility] LABCLIA [id number] [place] [address] [place] Anion gap [Moles/Vol] 10 mmol/L Normal 9-18 [facility] Comment on above: Order Comment: Speci men Type: BLOOD SPECIMENOrdering Facility: [facility] Address: [address] [place] [address] Performed By: #### 2 4323-8, 79381-6, 3040-3, 2777-1 ####[facility] LABCLIA [id number] [place] [address] [place] AST [Catalytic activity/Vol] 29 U/L Normal 13-35 [facility] Comment on above: Order Comment: Speci men Type: BLOOD SPECIMENOrdering Facility: [facility] Address: [address] [place] [address] Performed By: #### 2 4323-8, 12931-9, 3040-3, 2776-1 ####[facility] LABCLIA [id number] [place] [address] [place] Bilirubin [Mass/Vol] 0.2 mg/dL Normal 0.2-1.3 [facility] Comment on above: Order Comment: Speci men Type: BLOOD SPECIMENOrdering Facility: [facility] Address: [address] [place] [address] Performed By: #### 2 4323-8, 88918-2, 0-3, 2776-1 ####[facility] LABCLIA [id number] [place] [address] [place] Calcium [Mass/Vol] 8.2 mg/dL Low 8.5-10.2 [facility] Comment on above: Order Comment: Speci men Type: BLOOD SPECIMENOrdering Facility: [facility] Address: [address] [place] [address] Performed By: #### 2 4323-8, 41760-4, 3039-3, 2776-1 ####[facility] LABCL[facility] [id number] [place] [address] [place] Chloride [Moles/Vol] 109 mmol/L High 97-105 [facility] Comment on above: Order Comment: Speci men Type: BLOOD SPECIMENOrdering Facility: [facility] Address: [address] [place] [address] Performed By: #### 2 4323-8, 83358-0, 0-3, 2776-1 ####[facility] LABCLIA [id number] [place] [address] [place] CO2 [Moles/Vol] 21 mmol/L Low 22-30 [facility] Comment on above: Order Comment: Speci men Type: BLOOD SPECIMENOrdering Facility: [facility] Address: [address] [place] [address] Performed By: #### 2 4323-8, 93038-4, 3040-3, 2777-1 ####[facility] LABCL[facility] [id number] [place] [address] [place] Creatinine [Mass/Vol] 0.66 mg/dL Normal 0.58-0.96 [facility] Comment on above: Order Comment: Speci men Type: BLOOD SPECIMENOrdering Facility: [facility] Address: [address] [place] [address] Performed By: #### 2 4323-8, 92049-5, 0-3, 2776-1 ####[facility]CLIA [id number] [place] [address] [place] Creatinine and Glomerular filtration rate.predicted panel (S/P/Bld) 119 mL/min/1.73m??? Normal >=60 [facility] Comment on above: Order Comment: Geraldo marrero Type: BLOOD SPECIMENOrdering Facility: [facility] Address: [address] [place] [address] Result Comment: Jessica mated Glomerular Filtration Rate [...] actual GFR. Performed By: #### 2 4323-8, 36459-2, 0-3, 277-1 ####[facility]CLIA [id number] [place] [address] [place] Glucose [Mass/Vol] 83 mg/dL Normal 74-99 [facility] Comment on above: Order Comment: Speci men Type: BLOOD SPECIMENOrdering Facility: [facility] Address: [address] [place] [address] Result Comment: The [place] [employer] (ADA) provides guidance for cutoff [...] Standards of Medical Care in Diabetes 2016, [place] [employer]. Diabetes Care. 2016.39(Suppl 1). Performed By: #### 2 4323-8, 40642-1, 0-3, 7-1 ####[facility]CLIA [id number] [place] [address] [place] Potassium [Moles/Vol] 3.7 mmol/L Normal 3.7-5.1 [facility] [facility] Comment on above: Order Comment: Speci men Type: BLOOD SPECIMENOrdering Facility: [facility] Address: [address] [place] [address] Performed By: #### 2 4323-8, , 3039-3, 2776- ####[facility] LABCLIA [id number] [place] [address] [place] Protein [Mass/Vol] 5.9 g/dL Low 6.3-8.0 [facility] Comment on above: Order Comment: Speci men Type: BLOOD SPECIMENOrdering Facility: [facility] Address: [address] [place] [address] Performed By: #### 2 4323-8, 60035-9, 3039-3, 2776-1 ####[facility] LABCLIA [id number] [place] [address] [place] Sodium [Moles/Vol] 140 mmol/L Normal 136-144 [facility] Comment on above: Order Comment: Speci men Type: BLOOD SPECIMENOrdering Facility: [facility] Address: [address] [id number] Performed By: #### 2 4323-8, 11118-8, 3040-3, 7-1 ####[facility] LABCLIA [id number] [address] [address] [place] Urea nitrogen [Mass/Vol] 13 mg/dL Normal 7-21 [facility] Comment on above: Order Comment: Speci men Type: BLOOD SPECIMENOrdering Facility: [facility] Address: [place] [address] Performed By: #### 2 4323-8, 84870-2, 3040-3, 2776- ####[facility] LABCLIA [id number] [id number] [place] [address] [place] ED NOTEon 12-06-2022 ED NOTE HNO ID: [id number] Author: Michelle Regalado RN Service: Emergency Medicine Author Type: Registered Nurse Type: ED Notes Filed: 12/06/2022 10:09 PM Note Text: Report called to DEE Argueta. Normal [facility] ED NOTE HNO ID: [id number] Author: Maia Mosher RN Service: Emergency Medicine Author Type: Registered Nurse Type: ED Notes Filed: 12/06/2022 3:19 PM Note Text: Nurse handoff given to DEE Carreon Normal [facility] ED PROV NOTEon 12-06-2022 ED PROV NOTE Normal [facility] HISTORY PHYSICALon HISTORY PHYSICAL Normal [facility] Lipase SerPl-cCncon 12-07-19 23 Lipase [Catalytic activity/Vol] 40 U/L Normal 16-61 [facility] Comment on above: Order Comment: Speci men Type: BLOOD SPECIMENOrdering Facility: [facility] Address: [address] [place] [address] Performed By: #### 2 4323-8, 66631-4, 3040-3, 2776- ####[facility] LABCLIA [id number] [place] [address] [place] Magnesium SerPl-ncon 12-06 Magnesium [Mass/Vol] 2.0 mg/dL Normal 1.7-2.3 [facility] Comment on above: Order Comment: Speci men Type: BLOOD SPECIMENOrdering Facility: [facility] Address: [address] [place] [address] Performed By: #### 2 4323-8, , 0-3, 2776-1 ####[facility] LABIA [id number] [place] [address] [place] Phosphate SerPl-mCncon 12-06 Phosphate [Mass/Vol] 2.7 mg/dL Normal 2.7-4.8 [facility] Comment on above: Order Comment: Speci men Type: BLOOD SPECIMENOrdering Facility: [facility] Address: [address] [place] [address] Performed By: #### 2 4323-8, , 3, 2776- ####[facility] LABIA [id number] [place] [address] [place] Urinalysis complete panel (U )on 12-06-2022 Bacteria LM.HPF (Urine sed) [#/Area] Negative Normal Negative [facility] Comment on above: Order Comment: Speci men Type: URINE SPECIMENOrdering Facility: [facility] Address: [address] [place] [address] Performed By: #### 2 4356-8 ####[facility] LABIA [id number] [place] [address] [place] Bilirubin Ql (U) Negative Normal Negative [facility] Comment on above: Order Comment: Speci men Type: URINE SPECIMENOrdering Facility: [facility] Address: [address] [place] [address] Performed By: #### 2 4356-8 ####[facility] LABCLIA [id number] [place] [address] [place] Clarity (Unsp spec) Clear Normal Clear [facility] Comment on above: Order Comment: Speci men Type: URINE SPECIMENOrdering Facility: [facility] Address: [address] [place] [address] Performed By: #### 2 4356-8 ####[facility] LABCLIA [id number] [place] [address] [place] Color (U) Yellow Normal Yellow [facility] Comment on above: Order Comment: Speci men Type: URINE SPECIMENOrdering Facility: [facility] Address: [address] [place] [address] Performed By: #### 2 4356-8 ####[facility] LABIA [id number] [place] [address] [place] Epithelial cells LM.HPF (Urine sed) [#/Area] Moderate Normal [facility] Comment on above: Order Comment: Speci men Type: URINE SPECIMENOrdering Facility: [facility] Address: [address] [place] [address] Performed By: #### 2 4356-8 ####[facility] LABIA [id number] [place] [address] [place] Glucose Test strip (U) [Mass/Vol] Negative Normal Negative [facility] Comment on above: Order Comment: Speci men Type: URINE SPECIMENOrdering Facility: [facility] Address: [address] [place] [address] Performed By: #### 2 4356-8 ####[facility] LABIA [id number] [place] [address] [place] Hemoglobin Ql (U) Negative Normal Negative [facility] Comment on above: Order Comment: Speci men Type: URINE SPECIMENOrdering Facility: [facility] Address: [address] [place] [address] Performed By: #### 2 4356-8 ####[facility] LABCLIA [id number] [place] [address] [place] Hyaline casts (Urine sed) [#/Area] 0 /[LPF] Normal 0 /LPF [facility] Comment on above: Order Comment: Speci men Type: URINE SPECIMENOrdering Facility: [facility] Address: [address] [place] [address] Performed By: #### 2 4356-8 ####[facility] LABCLIA [id number] [place] [address] [place] Ketones Ql (U) Negative Normal Negative [facility] Comment on above: Order Comment: Speci men Type: URINE SPECIMENOrdering Facility: [facility] Address: [address] [place] [address] Performed By: #### 2 4356-8 ####[facility] LABCLIA [id number] [place] [address] [place] Leukocyte esterase Test strip Ql (U) Negative Normal Negative [facility] Comment on above: Order Comment: Speci men Type: URINE SPECIMENOrdering Facility: [facility] Address: [address] [place] [address] Performed By: #### 2 4356-8 ####[facility] LABCLIA [id number] [place] [address] [place] Nitrite Ql (U) Negative Normal Negative [facility] Comment on above: Order Comment: Speci men Type: URINE SPECIMENOrdering Facility: [facility] Address: [address] [place] [address] Performed By: #### 2 4356-8 ####[facility] LABCLIA [id number] [place] [address] [place] pH (U) 7.0 [pH] Normal <8.5 [facility] Comment on above: Order Comment: Speci men Type: URINE SPECIMENOrdering Facility: [facility] Address: [address] [place] [address] Performed By: #### 2 4356-8 ####[facility] LABIA [id number] [place] [address] [place] Protein (U) [Mass/Vol] Negative Normal Negative [facility] Comment on above: Order Comment: Speci men Type: URINE SPECIMENOrdering Facility: [facility] Address: [address] [place] [address] Performed By: #### 2 4356-8 ####[facility] LABIA [id number] [place] [address] [place] RBC LM.HPF (Urine sed) [#/Area] 0-2 /HPF Normal 0-2 /HPF [facility] Comment on above: Order Comment: Speci men Type: URINE SPECIMENOrdering Facility: [facility] Address: [address] [place] [address] Performed By: #### 2 4356-8 ####[facility] LABIA [id number] [place] [address] [place] Specific gravity (U) [Rel density] 1.014 Normal 1.005-1.030 [facility] Comment on above: Order Comment: Speci men Type: URINE SPECIMENOrdering Facility: [facility] Address: [address] [place] [address] Performed By: #### 2 4356-8 ####[facility] LABIA [id number] [place] [address] [place] Urobilinogen Ql (U) 0.2 EU/dL Normal 0.2-1.0 EU/dL [facility] Comment on above: Order Comment: Speci men Type: URINE SPECIMENOrdering Facility: [facility] Address: [address] [place] [address] Performed By: #### 2 4356-8 ####[facility] LABCLIA [id number] [place] [address] [place] WBC LM.HPF (Urine sed) [#/Area] 0-5 /HPF Normal 0-5 /HPF [facility] Comment on above: Order Comment: Speci men Type: URINE SPECIMENOrdering Facility: [facility] Address: [address] [place] [address] Performed By: #### 2 4356-8 ####[facility] LABIA [id number] [place] [address] [place] CNOVon 12-04-2022 CNOV Normal [facility] HISTORY PHYSICALon HISTORY PHYSICAL Normal [facility] Basic Metabolic Panelon 11-15 Anion gap [Moles/Vol] 10 mmol/L Normal 9-15 [facility] Comment on above: Performed By: #### L IPAS #### [facility] [address] [place] [address] Calcium [Mass/Vol] 8.4 mg/dL Low 8.5-9.9 [facility] Comment on above: Performed By: #### L IPAS #### [facility] [address] [place] [address] Chloride [Moles/Vol] 108 mmol/L Critically high 95-107 [facility] Comment on above: Performed By: #### L IPAS #### [facility] [address] [place] [address] CO2 [Moles/Vol] 23 mmol/L Normal 20-31 [facility] Comment on above: Performed By: #### L IPAS #### [facility] [address] [place] [address] Creatinine [Mass/Vol] 0.64 mg/dL Normal 0.50-0.90 [facility] Comment on above: Performed By: #### L IPAS #### [facility] [address] [place] [address] GFR >60.0 Normal >60 [facility] Comment on above: Result Comment: Adán [...] secretion. Performed By: #### L IPAS #### [facility] [address] [place] [address] Glucose [Mass/Vol] 86 mg/dL Normal 70-99 [facility] Comment on above: Performed By: #### L IPAS #### [facility] [address] [place] [address] Potassium [Moles/Vol] 3.9 mmol/L Normal 3.4-4.9 [facility] Comment on above: Performed By: #### L IPAS #### [facility] [address] [place] [address] Sodium [Moles/Vol] 141 mmol/L Normal 135-144 [facility] Comment on above: Performed By: #### L IPAS #### [facility] [address] [place] [address] Urea nitrogen [Mass/Vol] 14 mg/dL Normal 6-20 [facility] Comment on above: Performed By: #### L IPAS #### [facility] [address] [place] [address] CBC With Platelet and Differ entialon 12-03-2022 Basophils (Bld) [#/Vol] 0.0 10*3/uL Normal 0.0-0.2 [facility] Comment on above: Performed By: #### C BCWD #### [facility] [address] [place] [address] Basophils/100 WBC (Bld) 0.9 % Normal [facility] Comment on above: Performed By: #### C BCWD #### [facility] [address] [place] [address] Eosinophils (Bld) [#/Vol] 0.2 10*3/uL Normal 0.0-0.7 [facility] Comment on above: Performed By: #### C BCWD #### [facility] [address] [place] [address] Eosinophils/100 WBC (Bld) 5.2 % Normal [facility] Comment on above: Performed By: #### C BCWD #### [facility] [address] [place] [address] Erythrocyte distribution width (RBC) [Ratio] 13.2 % Normal 11.5-14.5 [facility] Comment on above: Performed By: #### C BCWD #### [facility] [address] [place] [address] Hematocrit (Bld) [Volume fraction] 35.9 % Low 37.0-47.0 [facility] Comment on above: Performed By: #### C BCWD #### [facility] [address] [place] [address] Hemoglobin (Bld) [Mass/Vol] 12.3 g/dL Normal 12.0-16.0 [facility] Comment on above: Performed By: #### C BCWD #### [facility] [address] [place] [address] Lymphocytes (Bld) [#/Vol] 1.3 10*3/uL Normal 1.0-4.8 [facility] Comment on above: Performed By: #### C BCWD #### [facility] [address] [place] [address] Lymphocytes/100 WBC (Bld) 38.2 % Normal [facility] Comment on above: Performed By: #### C BCWD #### [facility] [address] [place] [address] MCH (RBC) [Entitic mass] 30.8 pg Normal 27.0-31.3 [facility] Comment on above: Performed By: #### C BCWD #### [facility] [address] [place] [address] MCHC 34.3 % Normal 33.0-37.0 [facility] Comment on above: Performed By: #### C BCWD #### [facility] [address] [place] [address] MCV (RBC) [Entitic vol] 89.8 fL Normal 79.4-94.8 [facility] Comment on above: Performed By: #### C BCWD #### [facility] [address] [place] [address] Monocytes (Bld) [#/Vol] 0.4 10*3/uL Normal 0.2-0.8 [facility] Comment on above: Performed By: #### C BCWD #### [facility] [address] [place] [address] Monocytes/100 WBC (Bld) 10.9 % Normal [facility] Comment on above: Performed By: #### C BCWD #### [facility] [address] [place] [address] Neutrophils (Bld) [#/Vol] 1.5 10*3/uL Normal 1.4-6.5 [facility] Comment on above: Performed By: #### C BCWD #### [facility] [address] [place] [address] Neutrophils/100 WBC (Bld) 44.5 % Normal [facility] Comment on above: Performed By: #### C BCWD #### [facility] [address] [place] [address] Platelets (Bld) [#/Vol] 204 10*3/uL Normal 130-400 [facility] Comment on above: Performed By: #### C BCWD #### [facility] [address] [place] [address] RBC (Bld) [#/Vol] 4.00 10*6/uL Low 4.20-5.40 [facility] Comment on above: Performed By: #### C BCWD #### [facility] [address] [place] [address] WBC (Bld) [#/Vol] 3.3 10*3/uL Low 4.8-10.8 [facility] Comment on above: Performed By: #### C BCWD #### [facility] [address] [place] [address] Basophils (Bld) [#/Vol] 0.0 10*3/uL Normal 0.0-0.2 [facility] Comment on above: Performed By: #### P GLU #### [facility] [address] [place] [address] Basophils/100 WBC (Bld) 0.7 % Normal [facility] Comment on above: Performed By: #### P GLU #### [facility] [address] [place] [address] Eosinophils (Bld) [#/Vol] 0.2 10*3/uL Normal 0.0-0.7 [facility] Comment on above: Performed By: #### P GLU #### [facility] [address] [place] [address] Eosinophils/100 WBC (Bld) 5.9 % Normal [facility] Comment on above: Performed By: #### P GLU #### [facility] [address] [place] [address] Erythrocyte distribution width (RBC) [Ratio] 13.5 % Normal 11.5-14.5 [facility] Comment on above: Performed By: #### P GLU #### [facility] [address] [place] [address] Hematocrit (Bld) [Volume fraction] 33.2 % Low 37.0-47.0 [facility] Comment on above: Performed By: #### P GLU #### [facility] [address] [place] [address] Hemoglobin (Bld) [Mass/Vol] 11.8 g/dL Low 12.0-16.0 [facility] Comment on above: Performed By: #### P GLU #### [facility] [address] [place] [address] Lymphocytes (Bld) [#/Vol] 1.1 10*3/uL Normal 1.0-4.8 [facility] Comment on above: Performed By: #### P GLU #### [facility] [address] [place] [address] Lymphocytes/100 WBC (Bld) 39.5 % Normal [facility] Comment on above: Performed By: #### P GLU #### [facility] [address] [place] [address] MCH (RBC) [Entitic mass] 34.0 pg Critically high 27.0-31.3 [facility] Comment on above: Performed By: #### P GLU #### [facility] [address] [place] [address] MCHC 35.5 % Normal 33.0-37.0 [facility] Comment on above: Performed By: #### P GLU #### [facility] [address] [place] [address] MCV (RBC) [Entitic vol] 95.7 fL Critically high 79.4-94.8 [facility] Comment on above: Performed By: #### P GLU #### [facility] [address] [place] [address] Monocytes (Bld) [#/Vol] 0.3 10*3/uL Normal 0.2-0.8 [facility] Comment on above: Performed By: #### P GLU #### [facility] [address] [place] [address] Monocytes/100 WBC (Bld) 9.1 % Normal [facility] Comment on above: Performed By: #### P GLU #### [facility] [address] [place] [address] Neutrophils (Bld) [#/Vol] 1.3 10*3/uL Low 1.4-6.5 [facility] Comment on above: Performed By: #### P GLU #### [facility] [address] [place] [address] Neutrophils/100 WBC (Bld) 44.5 % Normal [facility] Comment on above: Performed By: #### P GLU #### [facility] [address] [place] [address] Platelets (Bld) [#/Vol] 186 10*3/uL Normal 130-400 [facility] Comment on above: Performed By: #### P GLU #### [facility] [address] [place] [address] RBC (Bld) [#/Vol] 3.47 10*6/uL Low 4.20-5.40 [facility] Comment on above: Performed By: #### P GLU #### [facility] [address] [place] [address] WBC (Bld) [#/Vol] 2.9 10*3/uL Low 4.8-10.8 [facility] Comment on above: Performed By: #### P GLU #### [facility] [address] [place] [address] CNPNon 12-03-2022 CNPN [facility] Magn[facility] 12-03-2022 Magnesium [Mass/Vol] 1.8 mg/dL Normal 1.7-2.4 [facility] Comment on above: Performed By: #### L IPAS #### [facility] [address] [place] [address] POCT Glucoseon 12-03-2022 Glucose [Mass/Vol] 90 mg/dL Normal 70-99 [facility] Comment on above: Performed By: #### P GLU #### [facility] [address] [place] [address] POC Performed on ACCU-CHEK Normal [facility] Comment on above: Performed By: #### P GLU #### [facility] [address] [place] [address] Glucose [Mass/Vol] 101 mg/dL Critically high 70-99 [facility] Comment on above: Performed By: #### L IPAS #### [facility] [address] [place] [address] POC Performed on ACCU-CHEK Normal [facility] Comment on above: Performed By: #### L IPAS #### [facility] [address] [place] [address] Phosphoruson 12-03-2022 Phosphate [Mass/Vol] 3.6 mg/dL Normal 2.3-4.8 [facility] Comment on above: Performed By: #### L IPAS #### [facility] [address] [place] [address] Basic Metabolic Panelon - Anion gap [Moles/Vol] 6 mmol/L Low 9-15 [facility] Comment on above: Performed By: #### C BCWD #### [facility] [address] [place] [address] Calcium [Mass/Vol] 8.4 mg/dL Low 8.5-9.9 [facility] Comment on above: Performed By: #### C BCWD #### [facility] [address] [place] [address] Chloride [Moles/Vol] 107 mmol/L Normal 95-107 [facility] Comment on above: Performed By: #### C BCWD #### [facility] [address] [place] [address] CO2 [Moles/Vol] 25 mmol/L Normal 20-31 [facility] Comment on above: Performed By: #### C BCWD #### [facility] [address] [place] [address] Creatinine [Mass/Vol] 0.57 mg/dL Normal 0.50-0.90 [facility] Comment on above: Performed By: #### C BCWD #### [facility] [address] [place] [address] GFR >60.0 Normal >60 [facility] Comment on above: Result Comment: Adán [...] secretion. Performed By: #### C BCWD #### [facility] [address] [place] [address] Glucose [Mass/Vol] 104 mg/dL Critically high 70-99 [facility] Comment on above: Performed By: #### C BCWD #### [facility] [address] [place] [address] Potassium [Moles/Vol] 4.0 mmol/L Normal 3.4-4.9 [facility] Comment on above: Performed By: #### C BCWD #### [facility] [address] [place] [address] Sodium [Moles/Vol] 138 mmol/L Normal 135-144 [facility] Comment on above: Performed By: #### C BCWD #### [facility] [address] [place] [address] Urea nitrogen [Mass/Vol] 12 mg/dL Normal 6-20 [facility] Comment on above: Performed By: #### C BCWD #### [facility] [address] [place] [address] CBC With Platelet and Differ entialon 12-02-2022 Anisocytosis Ql (Bld) 1+ Normal [facility] Comment on above: Performed By: #### C BCWD #### [facility] [address] [place] [address] Basophils (Bld) [#/Vol] 0.0 10*3/uL Normal 0.0-0.2 [facility] Comment on above: Performed By: #### C BCWD #### [facility] [address] [place] [address] Basophils/100 WBC (Bld) 1.0 % Normal [facility] Comment on above: Performed By: #### C BCWD #### [facility] [address] [place] [address] Eosinophils (Bld) [#/Vol] 0.2 10*3/uL Normal 0.0-0.7 [facility] Comment on above: Performed By: #### C BCWD #### [facility] [address] [place] [address] Eosinophils/100 WBC (Bld) 9.0 % Normal [facility] Comment on above: Performed By: #### C BCWD #### [facility] [address] [place] [address] Lymphocytes (Bld) [#/Vol] 0.9 10*3/uL Low 1.0-4.8 [facility] Comment on above: Performed By: #### C BCWD #### [facility] [address] [place] [address] Lymphocytes/100 WBC (Bld) 35.0 % Normal [facility] Comment on above: Performed By: #### C BCWD #### [facility] [address] [place] [address] Monocytes (Bld) [#/Vol] 0.1 10*3/uL Low 0.2-0.8 [facility] Comment on above: Performed By: #### C BCWD #### [facility] [address] [place] [address] Monocytes/100 WBC (Bld) 4.6 % Normal [facility] Comment on above: Performed By: #### C BCWD #### [facility] [address] [place] [address] Neutrophils (Bld) [#/Vol] 1.4 10*3/uL Normal 1.4-6.5 [facility] Comment on above: Performed By: #### C BCWD #### [facility] [address] [place] [address] Neutrophils/100 WBC (Bld) 50.0 % Normal [facility] Comment on above: Performed By: #### C BCWD #### [facility] [address] [place] [address] Ovalocytes 1+ Normal [facility] Comment on above: Performed By: #### C BCWD #### [facility] [address] [place] [address] Poikilocytosis 1+ Normal [facility] Comment on above: Performed By: #### C BCWD #### [facility] [address] [place] [address] Erythrocyte distribution width (RBC) [Ratio] 13.3 % Normal 11.5-14.5 [facility] Comment on above: Performed By: #### C BCWD #### [facility] [address] [place] [address] Hematocrit (Bld) [Volume fraction] 34.0 % Low 37.0-47.0 [facility] Comment on above: Performed By: #### C BCWD #### [facility] [address] [place] [address] Hemoglobin (Bld) [Mass/Vol] 11.8 g/dL Low 12.0-16.0 [facility] Comment on above: Performed By: #### C BCWD #### [facility] [address] [place] [address] MCH (RBC) [Entitic mass] 31.3 pg Normal 27.0-31.3 [facility] Comment on above: Performed By: #### C BCWD #### [facility] [address] [place] [address] MCHC 34.7 % Normal 33.0-37.0 [facility] Comment on above: Performed By: #### C BCWD #### [facility] [address] [place] [address] MCV (RBC) [Entitic vol] 90.2 fL Normal 79.4-94.8 [facility] Comment on above: Performed By: #### C BCWD #### [facility] [address] [place] [address] Platelets (Bld) [#/Vol] 201 10*3/uL Normal 130-400 [facility] Comment on above: Performed By: #### C BCWD #### [facility] [address] [place] [address] RBC (Bld) [#/Vol] 3.77 10*6/uL Low 4.20-5.40 [facility] Comment on above: Performed By: #### C BCWD #### [facility] [address] [place] [address] WBC (Bld) [#/Vol] 2.7 10*3/uL Low 4.8-10.8 [facility] Comment on above: Performed By: #### C BCWD #### [facility] [address] [place] [address] Magnesiumon 12-02-2022 Magnesium [Mass/Vol] 1.9 mg/dL Normal 1.7-2.4 [facility] Comment on above: Performed By: #### C BCWD #### [facility] [address] [place] [address] POCT Glucoseon 12-02-2022 Glucose [Mass/Vol] 115 mg/dL Critically high 70-99 [facility] Comment on above: Performed By: #### P GLU #### [facility] [address] [place] [address] POC Performed on ACCU-CHEK Normal [facility] Comment on above: Performed By: #### P GLU #### [facility] [address] [place] [address] Glucose [Mass/Vol] 94 mg/dL Normal 70-99 [facility] Comment on above: Performed By: #### P GLU #### [facility] [address] [place] [address] POC Performed on ACCU-CHEK Normal [facility] Comment on above: Performed By: #### P GLU #### [facility] [address] [place] [address] Glucose [Mass/Vol] 94 mg/dL Normal 70-99 [facility] Comment on above: Performed By: #### P GLU #### [facility] [address] [place] [address] POC Performed on ACCU-CHEK Normal [facility] Comment on above: Performed By: #### P GLU #### [facility] [address] [place] [address] Phosphoruson 12-02-2022 Phosphate [Mass/Vol] 3.7 mg/dL Normal 2.3-4.8 [facility] Comment on above: Performed By: #### P GLU #### [facility] [address] [place] [address] CNPNon 12-01-2022 CNPN Normal [facility] Metabolic Pane nestor 12-01-2022 Albumin [Mass/Vol] 3.7 g/dL Normal 3.5-4.6 [facility] Comment on above: Performed By: #### C BCWD #### [facility] [address] [place] [address] ALP [Catalytic activity/Vol] 62 U/L Normal 40-130 [facility] Comment on above: Performed By: #### C BCWD #### [facility] [address] [place] [address] ALT [Catalytic activity/Vol] 16 U/L Normal 0-33 [facility] Comment on above: Performed By: #### C BCWD #### [facility] [address] [place] [address] Anion gap [Moles/Vol] 7 mmol/L Low 9-15 [facility] Comment on above: Performed By: #### C BCWD #### [facility] [address] [place] [address] AST [Catalytic activity/Vol] 30 U/L Normal 0-35 [facility] Comment on above: Performed By: #### C BCWD #### [facility] [address] [place] [address] Bilirubin [Mass/Vol] 0.3 mg/dL Normal 0.2-0.7 [facility] Comment on above: Performed By: #### C BCWD #### [facility] [address] [place] [address] Calcium [Mass/Vol] 8.3 mg/dL Low 8.5-9.9 [facility] Comment on above: Performed By: #### C BCWD #### [facility] [address] [place] [address] Chloride [Moles/Vol] 106 mmol/L Normal 95-107 [facility] Comment on above: Performed By: #### C BCWD #### [facility] [address] [place] [address] CO2 [Moles/Vol] 23 mmol/L Normal 20-31 [facility] Comment on above: Performed By: #### C BCWD #### [facility] [address] [place] [address] Creatinine [Mass/Vol] 0.66 mg/dL Normal 0.50-0.90 [facility] Comment on above: Performed By: #### C BCWD #### [facility] [address] [place] [address] GFR >60.0 Normal >60 [facility] Comment on above: Result Comment: [place] atric calculator link https://www.kidney.org/professionals/kdoqi/gfr_calculatorped Effective Nov 17, [...] secretion. Performed By: #### C BCWD #### [facility] [address] [place] [address] Globulin (S) [Mass/Vol] 2.1 g/dL Low 2.3-3.5 [facility] Comment on above: Performed By: #### C BCWD #### [facility] [address] [place] [address] Glucose [Mass/Vol] 104 mg/dL Critically high 70-99 [facility] Comment on above: Performed By: #### C BCWD #### [facility] [address] [place] [address] Potassium [Moles/Vol] 3.9 mmol/L Normal 3.4-4.9 [facility] Comment on above: Performed By: #### C BCWD #### [facility] [address] [place] [address] Protein [Mass/Vol] 5.8 g/dL Low 6.3-8.0 [facility] Comment on above: Performed By: #### C BCWD #### [facility] [address] [place] [address] Sodium [Moles/Vol] 136 mmol/L Normal 135-144 [facility] Comment on above: Performed By: #### C BCWD #### [facility] [address] [place] [address] Urea nitrogen [Mass/Vol] 6 mg/dL Normal 6-20 [facility] Comment on above: Performed By: #### C BCWD #### [facility] [address] [place] [address] Magnesiumon 12-01-2022 Magnesium [Mass/Vol] 2.0 mg/dL Normal 1.7-2.4 [facility] Comment on above: Performed By: #### C BCWD #### [facility] [address] [place] [address] POCT Glucoseon 12-01-2022 Glucose [Mass/Vol] 113 mg/dL Critically high 70-99 [facility] Comment on above: Performed By: #### P GLU #### [facility] [address] [place] [address] POC Performed on ACCU-CHEK Normal [facility] Comment on above: Result Comment: Robby meneses RN or Performed By: #### P GLU #### [facility] [address] [place] [address] Phosphoruson 12-01-2022 Phosphate [Mass/Vol] 3.7 mg/dL Normal 2.3-4.8 [facility] Comment on above: Performed By: #### P GLU #### [facility] [address] [place] [address] Triglycerideson 12-01-2022 Triglyceride [Mass/Vol] 111 mg/dL Normal 0-150 [facility] Comment on above: Result Comment: ATP III Triglycerides Classification is Normal. Performed By: #### T RIG #### [facility] [address] [place] [address] Comprehensive Metabolic Pane nestor 11-30-2022 Albumin [Mass/Vol] 3.5 g/dL Normal 3.5-4.6 [facility] Comment on above: Performed By: #### C BCWD #### [facility] [address] [place] [address] ALP [Catalytic activity/Vol] 45 U/L Normal 40-130 [facility] Comment on above: Performed By: #### C BCWD #### [facility] [address] [place] [address] ALT [Catalytic activity/Vol] 15 U/L Normal 0-33 [facility] Comment on above: Result Comment: Spec imen hemolysis has exceeded the interference as defined by Kamran. Result may be affected. Suggest recollection if clinically indicated. Performed By: #### C BCWD #### [facility] [address] [place] [address] Anion gap [Moles/Vol] 6 mmol/L Low 9-15 [facility] Comment on above: Performed By: #### C BCWD #### [facility] [address] [place] [address] AST [Catalytic activity/Vol] 40 U/L Critically high 0-35 [facility] Comment on above: Result Comment: Spec imen hemolysis has exceeded the interference as defined by Kamran. Value may be falsely increased. Suggest recollection if clinically indicated. Performed By: #### C BCWD #### [facility] [address] [place] [address] Bilirubin [Mass/Vol] 0.3 mg/dL Normal 0.2-0.7 [facility] Comment on above: Performed By: #### C BCWD #### [facility] [address] [place] [address] Calcium [Mass/Vol] 8.3 mg/dL Low 8.5-9.9 [facility] Comment on above: Performed By: #### C BCWD #### [facility] [address] [place] [address] Chloride [Moles/Vol] 107 mmol/L Normal 95-107 [facility] Comment on above: Performed By: #### C BCWD #### [facility] [address] [place] [address] CO2 [Moles/Vol] 23 mmol/L Normal 20-31 [facility] Comment on above: Performed By: #### C BCWD #### [facility] [address] [place] [address] Creatinine [Mass/Vol] 0.69 mg/dL Normal 0.50-0.90 [facility] Comment on above: Performed By: #### C BCWD #### [facility] [address] [place] [address] GFR >60.0 Normal >60 [facility] Comment on above: Result Comment: Adán [...] secretion. Performed By: #### C BCWD #### [facility] [address] [place] [address] Globulin (S) [Mass/Vol] 1.9 g/dL Low 2.3-3.5 [facility] Comment on above: Performed By: #### C BCWD #### [facility] [address] [place] [address] Glucose [Mass/Vol] 86 mg/dL Normal 70-99 [facility] Comment on above: Performed By: #### C BCWD #### [facility] [address] [place] [address] Potassium [Moles/Vol] 4.6 mmol/L Normal 3.4-4.9 [facility] Comment on above: Result Comment: Spec imen hemolysis has exceeded the interference as defined by Kamran. Value may be falsely increased. Suggest recollection if clinically indicated. Performed By: #### C BCWD #### [facility] [address] [place] [address] Protein [Mass/Vol] 5.4 g/dL Low 6.3-8.0 [facility] Comment on above: Performed By: #### C BCWD #### [facility] [address] [place] [address] Sodium [Moles/Vol] 136 mmol/L Normal 135-144 [facility] Comment on above: Performed By: #### C BCWD #### [facility] [address] [place] [address] Urea nitrogen [Mass/Vol] 4 mg/dL Low 6-20 [facility] Comment on above: Performed By: #### C BCWD #### [facility] [address] [place] [address] IR PICC WO SQ PORT/PUMP > 5 [...] caps and surgical masks. In addition, the work over rig operator and technician assistant donned sterile gowns and gloves after [...] sheath was placed over the guidewire. A 5-Tajik dual-lumen PICC was advanced through the sheath, [...] Cedrick Billings MD 11/30/22 Final result Normal [facility] Magnesiumon 11-30-2022 Magnesium [Mass/Vol] 1.9 mg/dL Normal 1.7-2.4 [facility] Comment on above: Performed By: #### P GLU #### [facility] [address] [place] [address] Phosphoruson 11-30-2022 Phosphate [Mass/Vol] 3.2 mg/dL Normal 2.3-4.8 [facility] Comment on above: Performed By: #### C BCWD #### [facility] [address] [place] [address] CBC With Platelet and Differ entialon 11-29-2022 Basophils (Bld) [#/Vol] 0.0 10*3/uL Normal 0.0-0.2 [facility] Comment on above: Performed By: #### P GLU #### [facility] [address] [place] [address] Basophils/100 WBC (Bld) 0.6 % Normal [facility] Comment on above: Performed By: #### P GLU #### [facility] [address] [place] [address] Eosinophils (Bld) [#/Vol] 0.1 10*3/uL Normal 0.0-0.7 [facility] Comment on above: Performed By: #### P GLU #### [facility] [address] [place] [address] Eosinophils/100 WBC (Bld) 4.4 % Normal [facility] Comment on above: Performed By: #### P GLU #### [facility] [address] [place] [address] Erythrocyte distribution width (RBC) [Ratio] 13.6 % Normal 11.5-14.5 [facility] Comment on above: Performed By: #### P GLU #### [facility] [address] [place] [address] Hematocrit (Bld) [Volume fraction] 36.4 % Low 37.0-47.0 [facility] Comment on above: Performed By: #### P GLU #### [facility] [address] [place] [address] Hemoglobin (Bld) [Mass/Vol] 12.2 g/dL Normal 12.0-16.0 [facility] Comment on above: Performed By: #### P GLU #### [facility] [address] [place] [address] Lymphocytes (Bld) [#/Vol] 1.3 10*3/uL Normal 1.0-4.8 [facility] Comment on above: Performed By: #### P GLU #### [facility] [address] [place] [address] Lymphocytes/100 WBC (Bld) 41.0 % Normal [facility] Comment on above: Performed By: #### P GLU #### [facility] [address] [place] [address] MCH (RBC) [Entitic mass] 30.9 pg Normal 27.0-31.3 [facility] Comment on above: Performed By: #### P GLU #### [facility] [address] [place] [address] MCHC 33.5 % Normal 33.0-37.0 [facility] Comment on above: Performed By: #### P GLU #### [facility] [address] [place] [address] MCV (RBC) [Entitic vol] 92.2 fL Normal 79.4-94.8 [facility] Comment on above: Performed By: #### P GLU #### [facility] [address] [place] [address] Monocytes (Bld) [#/Vol] 0.3 10*3/uL Normal 0.2-0.8 [facility] Comment on above: Performed By: #### P GLU #### [facility] [address] [place] [address] Monocytes/100 WBC (Bld) 9.8 % Normal [facility] Comment on above: Performed By: #### P GLU #### [facility] [address] [place] [address] Neutrophils (Bld) [#/Vol] 1.4 10*3/uL Normal 1.4-6.5 [facility] Comment on above: Performed By: #### P GLU #### [facility] [address] [place] [address] Neutrophils/100 WBC (Bld) 44.2 % Normal [facility] Comment on above: Performed By: #### P GLU #### [facility] [address] [place] [address] Platelets (Bld) [#/Vol] 242 10*3/uL Normal 130-400 [facility] Comment on above: Performed By: #### P GLU #### [facility] [address] [place] [address] RBC (Bld) [#/Vol] 3.95 10*6/uL Low 4.20-5.40 [facility] Comment on above: Performed By: #### P GLU #### [facility] [address] [place] [address] WBC (Bld) [#/Vol] 3.2 10*3/uL Low 4.8-10.8 [facility] Comment on above: Performed By: #### P GLU #### [facility] [address] [place] [address] Comprehensive Metabolic Pane nestor 11-29-2022 Albumin [Mass/Vol] 3.5 g/dL Normal 3.5-4.6 [facility] Comment on above: Performed By: #### P GLU #### [facility] [address] [place] [address] ALP [Catalytic activity/Vol] 60 U/L Normal 40-130 [facility] Comment on above: Performed By: #### P GLU #### [facility] [address] [place] [address] ALT [Catalytic activity/Vol] 15 U/L Normal 0-33 [facility] Comment on above: Performed By: #### P GLU #### [facility] [address] [place] [address] Anion gap [Moles/Vol] 8 mmol/L Low 9-15 [facility] Comment on above: Performed By: #### P GLU #### [facility] [address] [place] [address] AST [Catalytic activity/Vol] 28 U/L Normal 0-35 [facility] Comment on above: Performed By: #### P GLU #### [facility] [address] [place] [address] Bilirubin [Mass/Vol] mg/dL Normal 0.2-0.7 [facility] Comment on above: Performed By: #### P GLU #### [facility] [address] [place] [address] Calcium [Mass/Vol] 8.4 mg/dL Low 8.5-9.9 [facility] Comment on above: Performed By: #### P GLU #### [facility] [address] [place] [address] Chloride [Moles/Vol] 113 mmol/L Critically high 95-107 [facility] Comment on above: Performed By: #### P GLU #### [facility] [address] [place] [address] CO2 [Moles/Vol] 23 mmol/L Normal 20-31 [facility] Comment on above: Performed By: #### P GLU #### [facility] [address] [place] [address] Creatinine [Mass/Vol] 0.71 mg/dL Normal 0.50-0.90 [facility] Comment on above: Performed By: #### P GLU #### [facility] [address] [place] [address] GFR >60.0 Normal >60 [facility] Comment on above: Result Comment: Adán funes calculator link https://www.kidney.org/professionals/kdoqi/gfr_calculatorped Effective Nov 17, 2021 [...] secretion. Performed By: #### P GLU #### [facility] [address] [place] [address] Globulin (S) [Mass/Vol] 2.2 g/dL Low 2.3-3.5 [facility] Comment on above: Performed By: #### P GLU #### [facility] [address] [place] [address] Glucose [Mass/Vol] 85 mg/dL Normal 70-99 [facility] Comment on above: Performed By: #### P GLU #### [facility] [address] [place] [address] Potassium [Moles/Vol] 4.2 mmol/L Normal 3.4-4.9 [facility] Comment on above: Performed By: #### P GLU #### [facility] [address] [place] [address] Protein [Mass/Vol] 5.7 g/dL Low 6.3-8.0 [facility] Comment on above: Performed By: #### P GLU #### [facility] [address] [place] [address] Sodium [Moles/Vol] 144 mmol/L Normal 135-144 [facility] Comment on above: Performed By: #### P GLU #### [facility] [address] [place] [address] Urea nitrogen [Mass/Vol] 5 mg/dL Low 6-20 [facility] Comment on above: Performed By: #### P GLU #### [facility] [address] [place] [address] Lactic Acidon 11-29-2022 Lactate [Moles/Vol] 0.9 mmol/L Normal 0.5-2.2 [facility] Comment on above: Performed By: #### L IPAS #### [facility] [address] [place] [address] Lipaseon 11-29-2022 Lipase [Catalytic activity/Vol] 48 U/L Normal 12-95 [facility] Comment on above: Performed By: #### L IPAS #### [facility] [address] [place] [address] Magnesiumon 11-29-2022 Magnesium [Mass/Vol] 1.9 mg/dL Normal 1.7-2.4 [facility] Comment on above: Performed By: #### P GLU #### [facility] [address] [place] [address] Partial Thromboplastin Timeo n 11-29-2022 aPTT Coag (Bld) [Time] 33.0 s Normal 24.4-36.8 [facility] Comment on above: Result Comment: Effe ctive 12/20/2019: Heparin Therapeutic Range: 64.0 ? 98.0 seconds. Performed By: #### C BCWD #### [facility] [address] [place] [address] Phosphoruson 11-29-2022 Phosphate [Mass/Vol] 3.3 mg/dL Normal 2.3-4.8 [facility] Comment on above: Performed By: #### C BCWD #### [facility] [address] [place] [address] Prothrombin Timeon INR Coag (PPP) [Relative time] 1.2 {INR} Normal [facility] Comment on above: Performed By: #### P T #### [facility] [address] [place] [address] PT Coag (PPP) [Time] 15.6 s Critically high 12.3-14.9 [facility] Comment on above: Performed By: #### P T #### [facility] [address] [place] [address] Prealbuminon 11-28-2022 Prealbumin [Mass/Vol] 15.0 mg/dL Low 20.0-40.0 [facility] Comment on above: Order Comment: Colle ction has been rescheduled by DUEAS at 11/28/2022 18:15 Reason:Failed attempt at venipuncture Performed By: #### L IPAS #### [facility] [address] [place] [address] Amylaseon 11-27-2022 Amylase [Catalytic activity/Vol] 44 U/L Normal 22-93 [facility] Comment on above: Performed By: #### P GLU #### [facility] [address] [place] [address] CBC With Platelet and Differ entialon 11-27-2022 Basophils (Bld) [#/Vol] 0.0 10*3/uL Normal 0.0-0.2 [facility] Comment on above: Performed By: #### P GLU #### [facility] [address] [place] [address] Basophils/100 WBC (Bld) 0.7 % Normal [facility] Comment on above: Performed By: #### P GLU #### [facility] [address] [place] [address] Eosinophils (Bld) [#/Vol] 0.1 10*3/uL Normal 0.0-0.7 [facility] Comment on above: Performed By: #### P GLU #### [facility] [address] [place] [address] Eosinophils/100 WBC (Bld) 1.4 % Normal [facility] Comment on above: Performed By: #### P GLU #### [facility] [address] [place] [address] Erythrocyte distribution width (RBC) [Ratio] 13.3 % Normal 11.5-14.5 [facility] Comment on above: Performed By: #### P GLU #### [facility] [address] [place] [address] Hematocrit (Bld) [Volume fraction] 38.0 % Normal 37.0-47.0 [facility] Comment on above: Performed By: #### P GLU #### [facility] [address] [place] [address] Hemoglobin (Bld) [Mass/Vol] 12.7 g/dL Normal 12.0-16.0 [facility] Comment on above: Performed By: #### P GLU #### [facility] [address] [place] [address] Lymphocytes (Bld) [#/Vol] 1.4 10*3/uL Normal 1.0-4.8 [facility] Comment on above: Performed By: #### P GLU #### [facility] [address] [place] [address] Lymphocytes/100 WBC (Bld) 32.1 % Normal [facility] Comment on above: Performed By: #### P GLU #### [facility] [address] [place] [address] MCH (RBC) [Entitic mass] 30.6 pg Normal 27.0-31.3 [facility] Comment on above: Performed By: #### P GLU #### [facility] [address] [place] [address] MCHC 33.4 % Normal 33.0-37.0 [facility] Comment on above: Performed By: #### P GLU #### [facility] [address] [place] [address] MCV (RBC) [Entitic vol] 91.6 fL Normal 79.4-94.8 [facility] Comment on above: Performed By: #### P GLU #### [facility] [address] [place] [address] Monocytes (Bld) [#/Vol] 0.3 10*3/uL Normal 0.2-0.8 [facility] Comment on above: Performed By: #### P GLU #### [facility] [address] [place] [address] Monocytes/100 WBC (Bld) 6.0 % Normal [facility] Comment on above: Performed By: #### P GLU #### [facility] [address] [place] [address] Neutrophils (Bld) [#/Vol] 2.6 10*3/uL Normal 1.4-6.5 [facility] Comment on above: Performed By: #### P GLU #### [facility] [address] [place] [address] Neutrophils/100 WBC (Bld) 59.6 % Normal [facility] Comment on above: Performed By: #### P GLU #### [facility] [address] [place] [address] Platelets (Bld) [#/Vol] 238 10*3/uL Normal 130-400 [facility] Comment on above: Performed By: #### P GLU #### [facility] [address] [place] [address] RBC (Bld) [#/Vol] 4.15 10*6/uL Low 4.20-5.40 [facility] Comment on above: Performed By: #### P GLU #### [facility] [address] [place] [address] WBC (Bld) [#/Vol] 4.4 10*3/uL Low 4.8-10.8 [facility] Comment on above: Performed By: #### P GLU #### [facility] [address] [place] [address] [address] ABDOMEN PELVIS W IV CONTR Daljit [...] Iker Ayala MD 11/27/22 Final result Normal [facility] CTA CHEST W WO CONTRASTon CTA [...] Jason Mcrae MD 11/27/22 Final result Normal [facility] Comprehensive Metabolic Pane nestor 11-27-2022 Albumin [Mass/Vol] 4.0 g/dL Normal 3.5-4.6 [facility] Comment on above: Performed By: #### P GLU #### [facility] [address] [place] [address] ALP [Catalytic activity/Vol] 60 U/L Normal 40-130 [facility] Comment on above: Performed By: #### P GLU #### [facility] [address] [place] [address] ALT [Catalytic activity/Vol] 20 U/L Normal 0-33 [facility] Comment on above: Performed By: #### P GLU #### [facility] [address] [place] [address] Anion gap [Moles/Vol] 10 mmol/L Normal 9-15 [facility] Comment on above: Performed By: #### P GLU #### [facility] [address] [place] [address] AST [Catalytic activity/Vol] 34 U/L Normal 0-35 [facility] Comment on above: Performed By: #### P GLU #### [facility] [address] [place] [address] Bilirubin [Mass/Vol] 0.4 mg/dL Normal 0.2-0.7 [facility] Comment on above: Performed By: #### P GLU #### [facility] [address] [place] [address] Calcium [Mass/Vol] 8.4 mg/dL Low 8.5-9.9 [facility] Comment on above: Performed By: #### P GLU #### [facility] [address] [place] [address] Chloride [Moles/Vol] 108 mmol/L Critically high 95-107 [facility] Comment on above: Performed By: #### P GLU #### [facility] [address] [place] [address] CO2 [Moles/Vol] 20 mmol/L Normal 20-31 [facility] Comment on above: Performed By: #### P GLU #### [facility] [address] [place] [address] Creatinine [Mass/Vol] 0.68 mg/dL Normal 0.50-0.90 [facility] Comment on above: Performed By: #### P GLU #### [facility] [address] [place] [address] GFR >60.0 Normal >60 [facility] Comment on above: Result Comment: Huberi atric [...] secretion. Performed By: #### P GLU #### [facility] [address] [place] [address] Globulin (S) [Mass/Vol] 2.3 g/dL Normal 2.3-3.5 [facility] Comment on above: Performed By: #### P GLU #### [facility] [address] [place] [address] Glucose [Mass/Vol] 82 mg/dL Normal 70-99 [facility] Comment on above: Performed By: #### P GLU #### [facility] [address] [place] [address] Potassium [Moles/Vol] 3.7 mmol/L Normal 3.4-4.9 [facility] Comment on above: Performed By: #### P GLU #### [facility] [address] [place] [address] Protein [Mass/Vol] 6.3 g/dL Normal 6.3-8.0 [facility] Comment on above: Performed By: #### P GLU #### [facility] [address] [place] [address] Sodium [Moles/Vol] 138 mmol/L Normal 135-144 [facility] Comment on above: Performed By: #### P GLU #### [facility] [address] [place] [address] Urea nitrogen [Mass/Vol] 8 mg/dL Normal 6-20 [facility] Comment on above: Performed By: #### P GLU #### [facility] [address] [place] [address] High Sensitivity Troponin To n 11-27-2022 High Sensitivity Troponin T <6 Normal 0-19 [facility] Comment on above: Result Comment: High Sensitivity Troponin values cannot be compared with other Troponin methodologies. Performed By: #### T RP5 #### [facility] [address] [place] [address] High Sensitivity Troponin T <6 Normal 0-19 [facility] Comment on above: Result Comment: High Sensitivity Troponin values cannot be compared with other Troponin methodologies. Performed By: #### P GLU #### [facility] [address] [place] [address] Lactic Acidon 11-27-2022 Lactate [Moles/Vol] 1.0 mmol/L Normal 0.5-2.2 [facility] Comment on above: Performed By: #### P GLU #### [facility] [address] [place] [address] Lipaseon 11-27-2022 Lipase [Catalytic activity/Vol] 37 U/L Normal 12-95 [facility] Comment on above: Performed By: #### P GLU #### [facility] [address] [place] [address] Magnesiumon 11-27-2022 Magnesium [Mass/Vol] 1.9 mg/dL Normal 1.7-2.4 [facility] Comment on above: Performed By: #### P GLU #### [facility] [address] [place] [address] POCT Venouson 11-27-2022 Creatinine [Mass/Vol] 0.9 mg/dL Normal 0.6-1.2 [facility] Comment on above: Performed By: #### L IPAS #### [facility] [address] [place] [address] GFR >60 Normal >60 [facility] Comment on above: Result Comment: Pedi [...] secretion. Performed By: #### L IPAS #### [facility] [address] [place] [address] POC Performed on SEE BELOW Normal [facility] Comment on above: Result Comment: Perf ormed on POC Performed By: #### L IPAS #### [facility] [address] [place] [address] POC Sample Type KIRA Normal [facility] Comment on above: Performed By: #### L IPAS #### [facility] [address] [place] [address] Urinalysis, reflex to cultur ryder 11-27-2022 Bilirubin Ql (U) Negative Normal Negative [facility] Comment on above: Performed By: #### P GLU #### [facility] [address] [place] [address] Clarity (U) Clear Normal Clear [facility] Comment on above: Performed By: #### P GLU #### [facility] [address] [place] [address] Color (U) Yellow Normal Straw/Bollinger [facility] Comment on above: Performed By: #### P GLU #### [facility] [address] [place] [address] Glucose Ql (U) Negative Normal Negative [facility] Comment on above: Performed By: #### P GLU #### [facility] [address] [place] [address] Hemoglobin Ql (U) Negative Normal Negative [facility] Comment on above: Performed By: #### P GLU #### [facility] [address] [place] [address] Ketones Ql (U) Negative Normal Negative [facility] Comment on above: Performed By: #### P GLU #### [facility] [address] [place] [address] Leukocyte esterase Test strip Ql (U) Negative Normal Negative [facility] Comment on above: Performed By: #### P GLU #### [facility] [address] [place] [address] Nitrite Ql (U) Negative Normal Negative [facility] Comment on above: Performed By: #### P GLU #### [facility] [address] [place] [address] pH (U) 7.5 [pH] Normal 5.0-9.0 [facility] Comment on above: Performed By: #### P GLU #### [facility] [address] [place] [address] Protein Ql (U) Negative Normal Negative [facility] Comment on above: Performed By: #### P GLU #### [facility] [address] [place] [address] Specific gravity (U) [Rel density] 1.026 Normal 1.005-1.03 [facility] Comment on above: Performed By: #### P GLU #### [facility] [address] [place] [address] Urine Reflexed to Culture Not Indicated Normal [facility] Comment on above: Performed By: #### P GLU #### [facility] [address] [place] [address] Urobilinogen Qn (U) 0.2 {Munir'U}/dL Normal < 2.0 [facility] Comment on above: Performed By: #### P GLU #### [facility] [address] [place] [address] CNNURSEon 11-26-2022 CNNURSE Normal [facility] US MESENTERIC ARTERY CMPLT V LABon 11-26-2022 US MESENTERIC ARTERY CMPLT VAS LAB Normal [facility] Ambulatory Visit Summaryon 1 Ambulatory Visit Summary Normal [address] [place] [address] [place] [address]- \.br\ Medications\.br\ What How Much When Why [...] hours as needed for Pain Pickup at [facility]/pharmacy #[id number]\.br\ Pharmacy Information\.br\ [facility]/pharmacy #[id number]: [address], [place] [phone]\.br\ Allergies\.br\ NSAIDs (Unknown)\.br\ codeine (unknown)\.br\ Problems\.br\ Ongoing [...] Metabolic syndrome\.br\ PCOS- polycystic ovary syndrome\.br\ \.br\ [facility] CNPNon 11-25-2022 CNPN Normal [facility] Family Medicine Office/Clini c Noteon 11-25-2022 Family Medicine Office/Clinic Note Normal [facility] Comment on above: Result Comment: Elec tronically Signed By: Jaquan Paula\.br\Date and Time Signed: 11/25/22 13:56 EDT Population Healthon 11-25-19 Population Health Normal [facility] Basic metabolic 2000 panelon 11-23-2022 Anion gap [Moles/Vol] 12 mmol/L Normal 11-02 [facility] Comment on above: Order Comment: Speci men Type: BLOOD SPECIMENOrdering Facility: [facility] Address: [address] [place] [address] [place] [address] Performed By: #### 2 4321-2, 72063-4, ####[facility] LABORATORYCLIA [id number] [facility] [place] [address] [place] Calcium [Mass/Vol] 8.4 mg/dL Low 8.5-10.2 [facility] Comment on above: Order Comment: Speci men Type: BLOOD SPECIMENOrdering Facility: [facility] Address: [address] [place] [address] Performed By: #### 2 4321-2, 32579-2, ####[facility] LABORATORYCLIA [id number] [place] [address] [place] Chloride [Moles/Vol] 107 mmol/L High 97-105 [facility] Comment on above: Order Comment: Speci men Type: BLOOD SPECIMENOrdering Facility: [facility] Address: [address] [place] [address] Performed By: #### 2 4321-2, 74773-6, ####[facility] [id number] [place] [address] [place] CO2 [Moles/Vol] 19 mmol/L Low 22-30 [facility] Comment on above: Order Comment: Speci men Type: BLOOD SPECIMENOrdering Facility: [facility] Address: [address] [place] [address] Performed By: #### 2 4321-2, 19059-1, ####[facility] LABORATORYIA [id number] [place] [address] [place] Creatinine [Mass/Vol] 0.71 mg/dL Normal 0.58-0.96 [facility] Comment on above: Order Comment: Speci men Type: BLOOD SPECIMENOrdering Facility: [facility] Address: [address] [place] [address] Performed By: #### 2 4321-2, 67762-6, ####[facility] LABORATORYIA [id number] [place] [address] [place] Creatinine and Glomerular filtration rate.predicted panel (S/P/Bld) 115 mL/min/1.73m??? Normal >=60 [facility] Comment on above: Order Comment: Geraldo marrero Type: BLOOD SPECIMENOrdering Facility: [facility] Address: [address] [place] [address] Result Comment: Jessica mated Glomerular Filtration Rate [...] actual GFR. Performed By: #### 2 4321-2, 88943-0, ####[facility] LABORATORYCLIA [id number] [facility] [place] [address] [place] Glucose [Mass/Vol] 105 mg/dL High 74-99 [facility] Comment on above: Order Comment: Geraldo marrero Type: BLOOD SPECIMENOrdering Facility: [facility] Address: [address] [place] [address] Result Comment: The [place] [employer] (ADA) provides guidance for cutoff [...] Standards of Medical Care in Diabetes 2016, [place] [employer]. Diabetes Care. 2016.39(Suppl 1). Performed By: #### 2 4321-2, 48581-5, ####[facility] LABORATORYCLIA [id number] [facility] [address] [place] Potassium [Moles/Vol] 3.8 mmol/L Normal 3.7-5.1 [facility] Comment on above: Order Comment: Speci men Type: BLOOD SPECIMENOrdering Facility: [facility] Address: [address] [place] [address] Performed By: #### 2 4321-2, 54531-1, ####[facility] LABORATORYCLIA [id number] [place] [address] [place] Sodium [Moles/Vol] 138 mmol/L Normal 136-144 [facility] Comment on above: Order Comment: Speci men Type: BLOOD SPECIMENOrdering Facility: [facility] Address: [address] [place] [address] Performed By: #### 2 4321-2, 91136-5, ####[facility] LABORATORYCLIA [id number] [place] [address] [place] Urea nitrogen [Mass/Vol] 7 mg/dL Normal 7-21 [facility] Comment on above: Order Comment: Speci men Type: BLOOD SPECIMENOrdering Facility: [facility] Address: [address] [place] [address] Performed By: #### 2 4321-2, 06738-8, ####[facility] LABORATORYCLIA [id number] [place] [address] [place] CASE MGT INIT ASSESon 2022 CASE MGT INIT ASS Normal [facility] CBC panel Auto (Bld)on 11-23 Erythrocyte distribution width (RBC) [Ratio] 13.6 % Normal 11.5-15.0 [facility] Comment on above: Order Comment: Speci men Type: BLOOD SPECIMENOrdering Facility: [facility] Address: [address] [place] [address] Performed By: #### 5 8410-2 ####[facility] LABORATORYCLIA [id number] [place] [address] [place] Hematocrit (Bld) [Volume fraction] 36.4 % Normal 36.0-46.0 [facility] Comment on above: Order Comment: Speci men Type: BLOOD SPECIMENOrdering Facility: [facility] Address: [address] [place] [address] Performed By: #### 5 8410-2 ####[facility] [id number] [place] [address] [place] Hemoglobin (Bld) [Mass/Vol] 11.8 g/dL Normal 11.5-15.5 [facility] Comment on above: Order Comment: Speci men Type: BLOOD SPECIMENOrdering Facility: [facility] Address: [address] [place] [address] Performed By: #### 5 8410-2 ####[facility] [id number] [place] [address] [place] MCH (RBC) [Entitic mass] 30.4 pg Normal 26.0-34.0 [facility] Comment on above: Order Comment: Speci men Type: BLOOD SPECIMENOrdering Facility: [facility] Address: [address] [place] [address] Performed By: #### 5 8410-2 ####[facility] [id number] [address] [place] MCHC (RBC) [Mass/Vol] 32.4 g/dL Normal 30.5-36.0 [facility] Comment on above: Order Comment: Speci men Type: BLOOD SPECIMENOrdering Facility: [facility] Address: [address] [place] [address] Performed By: #### 5 8410-2 ####[facility]ITAL[facility] [id number] [place] [address] [place] MCV (RBC) [Entitic vol] 93.8 fL Normal 80.0-100.0 [facility] Comment on above: Order Comment: Speci men Type: BLOOD SPECIMENOrdering Facility: [facility] Address: [address] [place] [address] Performed By: #### 5 8410-2 ####[facility] [id number] [place] [address] [place] Nucleated RBC (Bld) [#/Vol] 10*3/uL Normal <0.01 [facility] Comment on above: Order Comment: Speci men Type: BLOOD SPECIMENOrdering Facility: [facility] Address: [address] [place] [address] Performed By: #### 5 8410-2 ####[facility] LABORATORYCLIA [id number] [facility] [place] [address] [place] Platelet mean volume (Bld) [Entitic vol] 10.9 fL Normal 9.0-12.7 [facility] Comment on above: Order Comment: Speci men Type: BLOOD SPECIMENOrdering Facility: [facility] Address: [address] [place] [address] Performed By: #### 5 8410-2 ####[facility] LABORATORYCLIA [id number] [place] [address] [place] Platelets (Bld) [#/Vol] 217 10*3/uL Normal 150-400 [facility] Comment on above: Order Comment: Speci men Type: BLOOD SPECIMENOrdering Facility: [facility] Address: [address] [place] [address] Performed By: #### 5 8410-2 ####[facility] LABORATORYCLIA [id number] [place] [address] [place] RBC (Bld) [#/Vol] 3.88 10*6/uL Low 3.90-5.20 [facility] Comment on above: Order Comment: Speci men Type: BLOOD SPECIMENOrdering Facility: [facility] Address: [address] [place] [address] Performed By: #### 5 8410-2 ####[facility] LABORATORYCLIA [id number] [place] [address] [place] WBC (Bld) [#/Vol] 3.45 10*3/uL Low 3.70-11.00 [facility] Comment on above: Order Comment: Speci men Type: BLOOD SPECIMENOrdering Facility: [facility] Address: [address] [place] [address] Performed By: #### 5 8410-2 ####[facility] LABORATORYCLIA [id number] [place] [address] [place] CNDSon 11-23-2022 CNDS Normal [facility] CNPNon 11-23-2022 CNPN Normal [facility] CONSULTon 11-23-2022 CONSULT Normal [facility] Hepatic function 2000 panelo n 11-23-2022 Albumin [Mass/Vol] 3.5 g/dL Low 3.9-4.9 [facility] Comment on above: Order Comment: Speci men Type: BLOOD SPECIMENOrdering Facility: [facility] Address: [address] [place] [address] Performed By: #### 2 4321-2, 97595-6, ####[facility] LABORATORYCLIA [id number] [place] [address] [place] ALP [Catalytic activity/Vol] 58 U/L Normal 34-123 [facility] Comment on above: Order Comment: Speci men Type: BLOOD SPECIMENOrdering Facility: [facility] Address: [address] [place] [address] Performed By: #### 2 4321-2, 05341-1, ####[facility] [id number] [place] [address] [place] ALT [Catalytic activity/Vol] 17 U/L Normal 7-38 [facility] Comment on above: Order Comment: Speci men Type: BLOOD SPECIMENOrdering Facility: [facility] Address: [address] [place] [address] Performed By: #### 2 4321-2, 27625-2, ####[facility] LABORATORYCLIA [id number] [place] [address] [place] AST [Catalytic activity/Vol] 34 U/L Normal 13-35 [facility] Comment on above: Order Comment: Speci men Type: BLOOD SPECIMENOrdering Facility: [facility] Address: [address] [place] [address] Performed By: #### 2 4321-2, 61538-8, ####[facility] LABORATORYCLIA [id number] [place] [address] [place] Bilirubin [Mass/Vol] 0.4 mg/dL Normal 0.2-1.3 [facility] Comment on above: Order Comment: Speci men Type: BLOOD SPECIMENOrdering Facility: [facility] Address: [address] [place] [address] Performed By: #### 2 4321-2, 72237-6, ####[facility] LABORATORYCLIA [id number] [place] [address] [place] Bilirubin.conjugate d [Mass/Vol] mg/dL Normal <0.2 [facility] Comment on above: Order Comment: Speci men Type: BLOOD SPECIMENOrdering Facility: [facility] Address: [address] [place] [address] Performed By: #### 2 4321-2, 93737-3, ####[facility]ITAL[facility] [id number] [place] [address] [place] Protein [Mass/Vol] 5.9 g/dL Low 6.3-8.0 [facility] Comment on above: Order Comment: Speci men Type: BLOOD SPECIMENOrdering Facility: [facility] Address: [address] [place] [address] Performed By: #### 2 4321-2, 11570-6, ####[facility] LABORATORYIA [id number] [place] [address] [place] Magnesium SerPl-mCncon 11-23 Magnesium [Mass/Vol] 1.8 mg/dL Normal 1.7-2.3 [facility] Comment on above: Order Comment: Speci men Type: BLOOD SPECIMENOrdering Facility: [facility] Address: [address] [place] [address] Performed By: #### 2 4321-2, 51153-0, ####[facility] LABORATORYCLIA [id number] [facility] [place] [address] [place] CBC W Auto Differential pane l (Bld)on 11-22-2022 Basophils (Bld) [#/Vol] 0.03 10*3/uL Normal <0.11 [facility] Comment on above: Order Comment: Speci men Type: BLOOD SPECIMENOrdering Facility: [facility] Address: [address] [place] [address] Performed By: #### 5 7021-8 ####[facility] LABORATORYIA [id number] [place] [address] [place] Basophils/100 WBC (Bld) 0.6 % Normal [facility] Comment on above: Order Comment: Speci men Type: BLOOD SPECIMENOrdering Facility: [facility] Address: [address] [place] [address] Performed By: #### 5 7021-8 ####[facility] [id number] [place] [id number] [place] Differential cell count method Nom (Bld) Auto Normal [facility] Comment on above: Order Comment: Speci men Type: BLOOD SPECIMENOrdering Facility: [facility] Address: [address] [place] [address] Performed By: #### 5 7021-8 ####[facility] [id number] [place] [address] [place] Eosinophils (Bld) [#/Vol] 0.08 10*3/uL Normal <0.46 [facility] Comment on above: Order Comment: Speci men Type: BLOOD SPECIMENOrdering Facility: [facility] Address: [address] [place] [address] Performed By: #### 5 7021-8 ####[facility] [id number] [place] [id number] [place] Eosinophils/100 WBC (Bld) 1.7 % Normal [facility] Comment on above: Order Comment: Speci men Type: BLOOD SPECIMENOrdering Facility: [facility] Address: [address] [place] [address] Performed By: #### 5 7021-8 ####[facility] LABORATORYCLIA [id number] [place] [address] [place] Erythrocyte distribution width (RBC) [Ratio] 13.4 % Normal 11.5-15.0 [facility] Comment on above: Order Comment: Speci men Type: BLOOD SPECIMENOrdering Facility: [facility] Address: [address] [place] [address] Performed By: #### 5 7021-8 ####[facility] LABORATORYCLIA [id number] [place] [address] [place] Hematocrit (Bld) [Volume fraction] 40.4 % Normal 36.0-46.0 [facility] Comment on above: Order Comment: Speci men Type: BLOOD SPECIMENOrdering Facility: [facility] Address: [address] [place] [address] Performed By: #### 5 7021-8 ####[facility] [id number] [place] [address] [place] Hemoglobin (Bld) [Mass/Vol] 13.8 g/dL Normal 11.5-15.5 [facility] Comment on above: Order Comment: Speci men Type: BLOOD SPECIMENOrdering Facility: [facility] Address: [address] [place] [address] Performed By: #### 5 7021-8 ####[facility] LABORATORYIA [id number] [place] [address] [place] Immature granulocytes (Bld) [#/Vol] 10*3/uL Normal <0.10 [facility] Comment on above: Order Comment: Speci men Type: BLOOD SPECIMENOrdering Facility: [facility] Address: [address] [place] [address] Performed By: #### 5 7021-8 ####[facility] LABORATORYIA [id number] [place] [address] [place] Immature granulocytes/100 WBC (Bld) 0.2 % Normal [facility] Comment on above: Order Comment: Speci men Type: BLOOD SPECIMENOrdering Facility: [facility] Address: [address] [place] [address] Performed By: #### 5 7021-8 ####[facility] [id number] [place] [address] [place] Lymphocytes (Bld) [#/Vol] 2.01 10*3/uL Normal 1.00-4.00 [facility] Comment on above: Order Comment: Speci men Type: BLOOD SPECIMENOrdering Facility: [facility] Address: [address] [place] [address] Performed By: #### 5 7021-8 ####[facility] [id number] [place] [id number] [place] Lymphocytes/100 WBC (Bld) 42.2 % Normal [facility] Comment on above: Order Comment: Speci men Type: BLOOD SPECIMENOrdering Facility: [facility] Address: [address] [place] [address] Performed By: #### 5 7021-8 ####[facility] [id number] [place] [address] [place] MCH (RBC) [Entitic mass] 31.2 pg Normal 26.0-34.0 [facility] Comment on above: Order Comment: Speci men Type: BLOOD SPECIMENOrdering Facility: [facility] Address: [address] [place] [address] Performed By: #### 5 7021-8 ####[facility] [id number] [place] [address] [place] MCHC (RBC) [Mass/Vol] 34.2 g/dL Normal 30.5-36.0 [facility] Comment on above: Order Comment: Speci men Type: BLOOD SPECIMENOrdering Facility: [facility] Address: [address] [place] [address] Performed By: #### 5 7021-8 ####[facility] [id number] [place] [address] [place] MCV (RBC) [Entitic vol] 91.4 fL Normal 80.0-100.0 [facility] Comment on above: Order Comment: Speci men Type: BLOOD SPECIMENOrdering Facility: [facility] Address: [address] [place] [address] Performed By: #### 5 7021-8 ####[facility] LABORATORYCLIA [id number] [place] [address] [place] Monocytes (Bld) [#/Vol] 0.25 10*3/uL Normal <0.87 [facility] Comment on above: Order Comment: Speci men Type: BLOOD SPECIMENOrdering Facility: [facility] Address: [address] [place] [address] Performed By: #### 5 7021-8 ####[facility]ENTERCLIA [id number] [address] [place] Monocytes/100 WBC (Bld) 5.3 % Normal [facility] Comment on above: Order Comment: Speci men Type: BLOOD SPECIMENOrdering Facility: [facility] Address: [address] [place] [address] Performed By: #### 5 7021-8 ####[facility]ITALIA [id number] [place] [id number] [place] Neutrophils (Bld) [#/Vol] 2.38 10*3/uL Normal 1.45-7.50 [facility] Comment on above: Order Comment: Speci men Type: BLOOD SPECIMENOrdering Facility: [facility] Address: [address] [place] [address] Performed By: #### 5 7021-8 ####[facility] LABORATORYCLIA [id number] [place] [address] [place] Neutrophils/100 WBC (Bld) 50.0 % Normal [facility] Comment on above: Order Comment: Speci men Type: BLOOD SPECIMENOrdering Facility: [facility] Address: [address] [place] [address] Performed By: #### 5 7021-8 ####[facility] LABORATORYIA [id number] [place] [address] [place] Nucleated RBC (Bld) [#/Vol] 10*3/uL Normal <0.01 [facility] Comment on above: Order Comment: Speci men Type: BLOOD SPECIMENOrdering Facility: [facility] Address: [address] [place] [address] Performed By: #### 5 7021-8 ####[facility] LABORATORYCLIA [id number] [place] [address] [place] Nucleated RBC/100 WBC (Bld) [Ratio] 0.0 /100 WBC Normal [facility] Comment on above: Order Comment: Speci men Type: BLOOD SPECIMENOrdering Facility: [facility] Address: [address] [place] [address] Performed By: #### 5 7021-8 ####[facility] LABORATORYIA [id number] [place] [address] [place] Platelet mean volume (Bld) [Entitic vol] 11.1 fL Normal 9.0-12.7 [facility] Comment on above: Order Comment: Speci men Type: BLOOD SPECIMENOrdering Facility: [facility] Address: [address] [place] [address] Performed By: #### 5 7021-8 ####[facility] LABORATORYIA [id number] [place] [address] [place] Platelets (Bld) [#/Vol] 282 10*3/uL Normal 150-400 [facility] Comment on above: Order Comment: Speci men Type: BLOOD SPECIMENOrdering Facility: [facility] Address: [address] [place] [address] Performed By: #### 5 7021-8 ####[facility] LABORATORYIA [id number] [place] [id number] [place] RBC (Bld) [#/Vol] 4.42 10*6/uL Normal 3.90-5.20 [facility] Comment on above: Order Comment: Speci men Type: BLOOD SPECIMENOrdering Facility: [facility] Address: [address] [place] [address] Performed By: #### 5 7021-8 ####[facility] LABORATORYIA [id number] [place] [address] [place] WBC (Bld) [#/Vol] 4.76 10*3/uL Normal 3.70-11.00 [facility] Comment on above: Order Comment: Speci men Type: BLOOD SPECIMENOrdering Facility: [facility] Address: [address] [place] [address] Performed By: #### 5 7021-8 ####[facility] LABORATORYCLIA [id number] [place] [address] [place] CT ABD/PEL W IVCONon 023 CT ABD/PEL W IVCON Normal [facility] Comprehensive metabolic 2000 panelon 11-22-2022 Albumin [Mass/Vol] 4.4 g/dL Normal 3.9-4.9 [facility] Comment on above: Order Comment: Speci men Type: BLOOD SPECIMENOrdering Facility: [facility] Address: [address] [place] [address] Performed By: #### 2 4323-8, 3039-3, ####[facility]ITALIA [id number] [place] [address] [place] ALP [Catalytic activity/Vol] 73 U/L Normal 34-123 [facility] Comment on above: Order Comment: Speci men Type: BLOOD SPECIMENOrdering Facility: [facility] Address: [address] [place] [address] Performed By: #### 2 4323-8, 0-3, ####[facility] LABORATORYIA [id number] [place] [address] [place] ALT [Catalytic activity/Vol] 21 U/L Normal 7-38 [facility] Comment on above: Order Comment: Speci men Type: BLOOD SPECIMENOrdering Facility: [facility] Address: [address] [place] [address] Performed By: #### 2 4323-8, 3040-3, ####[facility] LABORATORYCLIA [id number] [facility] [place] [address] [place] Anion gap [Moles/Vol] 11 mmol/L Normal 9-18 [facility] Comment on above: Order Comment: Speci men Type: BLOOD SPECIMENOrdering Facility: [facility] Address: [address] [place] [address] Performed By: #### 2 4323-8, 3, ####[facility] LABORATORYCLIA [id number] [place] [address] [place] AST [Catalytic activity/Vol] 39 U/L High 13-35 [facility] Comment on above: Order Comment: Speci men Type: BLOOD SPECIMENOrdering Facility: [facility] Address: [address] [place] [address] Performed By: #### 2 4323-8, 3039-04, ####[facility]ITALIA [id number] [place] [address] [place] Bilirubin [Mass/Vol] 0.3 mg/dL Normal 0.2-1.3 [facility] Comment on above: Order Comment: Speci men Type: BLOOD SPECIMENOrdering Facility: [facility] Address: [address] [place] [address] Performed By: #### 2 4323-8, 3, ####[facility] LABORATORYIA [id number] [facility] [place] [address] [place] Calcium [Mass/Vol] 8.7 mg/dL Normal 8.5-10.2 [facility] Comment on above: Order Comment: Speci men Type: BLOOD SPECIMENOrdering Facility: [facility] Address: [address] [place] [address] Performed By: #### 2 4323-8, 3, ####[facility] LABORATORYIA [id number] [place] [address] [place] Chloride [Moles/Vol] 106 mmol/L High 97-105 [facility] Comment on above: Order Comment: Speci men Type: BLOOD SPECIMENOrdering Facility: [facility] Address: [address] [place] [address] Performed By: #### 2 4323-8, 0-3, ####[facility] LABORATORYCLIA [id number] [place] [address] [place] CO2 [Moles/Vol] 22 mmol/L Normal 22-30 [facility] Comment on above: Order Comment: Speci men Type: BLOOD SPECIMENOrdering Facility: [facility] Address: [address] [place] [address] Performed By: #### 2 4323-8, 3, ####[facility] LABORATORYCLIA [id number] [place] [address] [place] Creatinine [Mass/Vol] 0.80 mg/dL Normal 0.58-0.96 [facility] Comment on above: Order Comment: Speci men Type: BLOOD SPECIMENOrdering Facility: [facility] Address: [address] [place] [address] Performed By: #### 2 4323-8, 3039-04, ####[facility] LABORATORYCLIA [id number] [place] [address] [place] Creatinine and Glomerular filtration rate.predicted panel (S/P/Bld) 100 mL/min/1.73m??? Normal >=60 [facility] Comment on above: Order Comment: Speci men Type: BLOOD SPECIMENOrdering Facility: [facility] Address: [address] [place] [address] Result Comment: Jessica mated Glomerular Filtration Rate [...] GFR. Performed By: #### 2 4323-8, 3040-3, ####[facility] CENTERCLIA [id number] [facility] [place] [address] [place] Glucose [Mass/Vol] 88 mg/dL Normal 74-99 [facility] Comment on above: Order Comment: Speci men Type: BLOOD SPECIMENOrdering Facility: [facility] Address: [address] [place] [address] Result Comment: The [place] [employer] (ADA) provides guidance for cutoff [...] Standards of Medical Care in Diabetes 2016, [place] [employer]. Diabetes Care. 2016.39(Suppl 1). Performed By: #### 2 4323-8, 0-3, ####[facility]ITALIA [id number] [place] [address] [place] Potassium [Moles/Vol] 3.9 mmol/L Normal 3.7-5.1 [facility] Comment on above: Order Comment: Speci men Type: BLOOD SPECIMENOrdering Facility: [facility] Address: [address] [place] [address] Performed By: #### 2 4323-8, 3040-3, ####[facility]IA [id number] [place] [address] [place] Protein [Mass/Vol] 7.1 g/dL Normal 6.3-8.0 [facility] Comment on above: Order Comment: Speci men Type: BLOOD SPECIMENOrdering Facility: [facility] Address: [address] [place] [address] Performed By: #### 2 4323-8, 3040-3, ####[facility] LABORATORYCLIA [id number] [facility] [place] [address] [place] Sodium [Moles/Vol] 139 mmol/L Normal 136-144 [facility] Comment on above: Order Comment: Speci men Type: BLOOD SPECIMENOrdering Facility: [facility] Address: [address] [place] [address] Performed By: #### 2 4323-8, 0-3, ####[facility] CENTERCLIA [id number] [place] [address] [place] Urea nitrogen [Mass/Vol] 8 mg/dL Normal 7-21 [facility] Comment on above: Order Comment: Speci men Type: BLOOD SPECIMENOrdering Facility: [facility] Address: [address] [place] [address] Performed By: #### 2 4323-8, 3, ####[facility]ITALIA [id number] [facility] [place] [address] [place] ECG COMPLETEon 11-22-2022 ECG COMPLETE Normal [facility] ED NOTEon 11-22-2022 ED NOTE HNO ID: [id number] Author: Lady Garza RN Service: Emergency Medicine Author Type: Registered Nurse Type: ED Notes Filed: 11/22/2022 3:21 PM Note Text: Report to [facility] PRICE Normal [facility] ED PROV NOTEon 11-22-2022 ED PROV NOTE Normal [facility] HISTORY PHYSICALon HISTORY PHYSICAL Normal [facility] Lipase SerPl-cCncon 11-23-19 23 Lipase [Catalytic activity/Vol] 45 U/L Normal 16-61 [facility] Comment on above: Order Comment: Speci men Type: BLOOD SPECIMENOrdering Facility: [facility] Address: [address] [place], [place] [address] Performed By: #### 2 4323-8, 3040-3, ####[facility] LABORATORYCLIA [id number] [place] [address] [place] Magnesium SerPl-mCncon 11-22 Magnesium [Mass/Vol] 1.9 mg/dL Normal 1.7-2.3 [facility] Comment on above: Order Comment: Speci men Type: BLOOD SPECIMENOrdering Facility: [facility] Address: [address] [place] [address] Performed By: #### 2 4323-8, 3040-3, 27491-4 ####[facility] [id number] [place] [address] [place] NURSING PROGon 11-22-2022 NURSING PROG Normal [facility] Urinalysis complete panel (U )on 11-22-2022 Bilirubin Ql (U) Negative Normal Negative [facility] Comment on above: Order Comment: Speci men Type: URINE SPECIMENOrdering Facility: [facility] Address: [address] [place] [address] Performed By: #### 2 4356-8 ####[facility] [id number] [place] [address] [place] Clarity (Unsp spec) Clear Normal Clear [facility] Comment on above: Order Comment: Speci men Type: URINE SPECIMENOrdering Facility: [facility] Address: [address] [place] [address] Performed By: #### 2 4356-8 ####[facility] [id number] [place] [address] [place] Color (U) Light Yellow Normal yellow [facility] l Comment on above: Order Comment: Speci men Type: URINE SPECIMENOrdering Facility: [facility] Address: [address] [place] [address] Performed By: #### 2 4356-8 ####[facility] [id number] [place] [address] [place] Epithelial cells LM.HPF (Urine sed) [#/Area] Few Normal [facility] Comment on above: Order Comment: Speci men Type: URINE SPECIMENOrdering Facility: [facility] Address: [address] [place] [address] Performed By: #### 2 4356-8 ####[facility] [id number] [place] [address] [place] Glucose Test strip (U) [Mass/Vol] Negative Normal Trace, Negative [facility] Comment on above: Order Comment: Speci men Type: URINE SPECIMENOrdering Facility: [facility] Address: [address] [place] [address] Performed By: #### 2 4356-8 ####[facility]ITALIA [id number] [place] [address] [place] Hemoglobin Ql (U) Negative Normal Negative, Trace [facility] Comment on above: Order Comment: Speci men Type: URINE SPECIMENOrdering Facility: [facility] Address: [address] [place] [address] Performed By: #### 2 4356-8 ####[facility] [id number] [place] [address] [place] Ketones Ql (U) Negative Normal Negative, Trace [facility] Comment on above: Order Comment: Speci men Type: URINE SPECIMENOrdering Facility: [facility] Address: [address] [place] [address] Performed By: #### 2 4356-8 ####[facility] [id number] [place] [address] [place] Leukocyte esterase Test strip Ql (U) Negative Normal Negative, 25 Patito/uL [facility] Comment on above: Order Comment: Speci men Type: URINE SPECIMENOrdering Facility: [facility] Address: [address] [place] [address] Performed By: #### 2 4356-8 ####[facility]ITALIA [id number] [place] [address] [place] Nitrite Ql (U) Negative Normal Negative [facility] Comment on above: Order Comment: Speci men Type: URINE SPECIMENOrdering Facility: [facility] Address: [address] [place], [place] [address] Performed By: #### 2 4356-8 ####[facility]ITALIA [id number] [place] [address] [place] pH (U) 7.0 [pH] Normal 5.0-8.0 [facility] Comment on above: Order Comment: Speci men Type: URINE SPECIMENOrdering Facility: [facility] Address: [address] [place] [address] Performed By: #### 2 4356-8 ####[facility] [id number] [place] [address] [place] Protein (U) [Mass/Vol] Negative Normal Trace, Negative [facility] Comment on above: Order Comment: Speci men Type: URINE SPECIMENOrdering Facility: [facility] Address: [address] [place] [address] Performed By: #### 2 4356-8 ####[facility] [id number] [place] [id number] [place] RBC LM.HPF (Urine sed) [#/Area] 0-3 /HPF Normal 0-3 /HPF [facility] Comment on above: Order Comment: Speci men Type: URINE SPECIMENOrdering Facility: [facility] Address: [address] [place] [address] Performed By: #### 2 4356-8 ####[facility] [id number] [place] [id number] [place] Specific gravity (U) [Rel density] 1.020 Normal 1.005-1.030 [facility] Comment on above: Order Comment: Speci men Type: URINE SPECIMENOrdering Facility: [facility] Address: [address] [place] [address] Performed By: #### 2 4356-8 ####[facility] [id number] [place] [address] [place] Urobilinogen Ql (U) Normal Normal Negative [facility] Comment on above: Order Comment: Speci men Type: URINE SPECIMENOrdering Facility: [facility] Address: [address] [place] [address] Performed By: #### 2 4356-8 ####[facility] LABORATORYCLIA [id number] [place] [address] [place] WBC LM.HPF (Urine sed) [#/Area] 0-5 /HPF Normal 0-5 /HPF [facility] Comment on above: Order Comment: Speci men Type: URINE SPECIMENOrdering Facility: [facility] Address: [address] [place] [address] Performed By: #### 2 4356-8 ####[facility] LABORATORYCLIA [id number] [place] [address] [place] XR CHEST 2V FRONTAL/LATon XR CHEST 2V FRONTAL/LAT Normal [facility] CNPNon 11-20-2022 CNPN Normal [facility] Basic metabolic 2000 panelon 11-19-2022 Anion gap [Moles/Vol] 11 mmol/L Normal 9-18 [facility] Comment on above: Order Comment: Speci men Type: BLOOD SPECIMENOrdering Facility: [facility] Address: [address] [place] [address] Performed By: #### 1 9123-9, 95512-3, 27708-15 ####[facility]ITALCLIA [id number] [place] [address] [place] Calcium [Mass/Vol] 8.9 mg/dL Normal 8.5-10.2 [facility] Comment on above: Order Comment: Speci men Type: BLOOD SPECIMENOrdering Facility: [facility] Address: [address] [place] [address] Performed By: #### 1 9123-9, 04303-8, 277- ####[facility] [facility]ORYCLIA [id number] [place] [address] [place] Chloride [Moles/Vol] 104 mmol/L Normal 97-105 [facility] Comment on above: Order Comment: Speci men Type: BLOOD SPECIMENOrdering Facility: [facility] Address: [address] [place] [address] Performed By: #### 1 9123-9, 40762-8, 2776-02 ####[facility]ORYCLIA [id number] [place] [id number] [place] CO2 [Moles/Vol] 25 mmol/L Normal 22-30 [facility] Comment on above: Order Comment: Speci men Type: BLOOD SPECIMENOrdering Facility: [facility] Address: [address] [place] [address] Performed By: #### 1 9123-9, 82491-8, 2776-02 ####[facility]ORYCLIA [id number] [place] [id number] [place] Creatinine [Mass/Vol] 0.82 mg/dL Normal 0.58-0.96 [facility] Comment on above: Order Comment: Speci men Type: BLOOD SPECIMENOrdering Facility: [facility] Address: [address] [place] [address] Performed By: #### 1 9123-9, , 2776-02 ####[facility]ORYCLIA [id number] [place] [id number] [place] Creatinine and Glomerular filtration rate.predicted panel (S/P/Bld) 97 mL/min/1.73m??? Normal >=60 [facility] Comment on above: Order Comment: Speci men Type: BLOOD SPECIMENOrdering Facility: [facility] Address: [address] [place] [address] Result Comment: Jessica mated Glomerular Filtration Rate [...] actual GFR. Performed By: #### 1 9123-9, 43045-1, 2776-02 ####[facility]ATORYCLIA [id number] [place] [address] [place] Glucose [Mass/Vol] 80 mg/dL Normal 74-99 [facility] Comment on above: Order Comment: Speci men Type: BLOOD SPECIMENOrdering Facility: [facility] Address: [address] [place] [address] Result Comment: The [place] Diabetes Association (ADA) provides guidance for cutoff [...] Standards of Medical Care in Diabetes 2016, [place] [employer]. Diabetes Care. 2016.39(Suppl 1). Performed By: #### 1 9123-9, 11781-2, 2776- ####[facility]ORYCLIA [id number] [place] [address] [place] Potassium [Moles/Vol] 4.2 mmol/L Normal 3.7-5.1 [facility] Comment on above: Order Comment: Geraldo marrero Type: BLOOD SPECIMENOrdering Facility: [facility] Address: [address] [place] [address] Performed By: #### 1 9123-9, 28099-8, 2776-02 ####[facility]ATORYCLIA [id number] [place] [address] [place] Sodium [Moles/Vol] 140 mmol/L Normal 136-144 [facility] Comment on above: Order Comment: Speci men Type: BLOOD SPECIMENOrdering Facility: [facility] Address: [address] [place] [address] Performed By: #### 1 9123-9, 24098-3, 2776-02 ####[facility]ORYCLIA [id number] [place] [address] [place] Urea nitrogen [Mass/Vol] 6 mg/dL Low 7-21 [facility] Comment on above: Order Comment: Speci men Type: BLOOD SPECIMENOrdering Facility: [facility] Address: [address] [place] [address] Performed By: #### 1 9123-9, 28982-6, 2777-1 ####[facility]ORATORYCLIA [id number] [address] CBC panel Auto (Bld)on 11-19 Erythrocyte distribution width (RBC) [Ratio] 13.2 % Normal 11.5-15.0 [facility] Comment on above: Order Comment: Speci men Type: BLOOD SPECIMENOrdering Facility: [facility] Address: [address] [place] [address] Performed By: #### 5 8410-2 ####[facility]ATORYCLIA [id number] [address] Hematocrit (Bld) [Volume fraction] 36.3 % Normal 36.0-46.0 [facility] Comment on above: Order Comment: Speci men Type: BLOOD SPECIMENOrdering Facility: [facility] Address: [address] [place] [address] Performed By: #### 5 8410-2 ####[facility]ORATORYCLIA [id number] [address] [place] Hemoglobin (Bld) [Mass/Vol] 12.4 g/dL Normal 11.5-15.5 [facility] Comment on above: Order Comment: Speci men Type: BLOOD SPECIMENOrdering Facility: [facility] Address: [address] [place] [address] Performed By: #### 5 8410-2 ####[facility]ORATORYCLIA [id number] [address] [place] MCH (RBC) [Entitic mass] 30.4 pg Normal 26.0-34.0 [facility] Comment on above: Order Comment: Speci men Type: BLOOD SPECIMENOrdering Facility: [facility] Address: [address] [place] [address] Performed By: #### 5 8410-2 ####[facility]ATORYCLIA [id number] [address] [place] MCHC (RBC) [Mass/Vol] 34.2 g/dL Normal 30.5-36.0 [facility] Comment on above: Order Comment: Speci men Type: BLOOD SPECIMENOrdering Facility: [facility] Address: [address] [place] [address] Performed By: #### 5 8410-2 ####[facility] LABORATORYCLIA [id number] [place] [id number] [place] MCV (RBC) [Entitic vol] 89.0 fL Normal 80.0-100.0 [facility] Comment on above: Order Comment: Speci men Type: BLOOD SPECIMENOrdering Facility: [facility] Address: [address] [place] [address] Performed By: #### 5 8410-2 ####[facility] LABORATORYCLIA [id number] [place] [address] [place] Nucleated RBC (Bld) [#/Vol] 10*3/uL Normal <0.01 [facility] Comment on above: Order Comment: Speci men Type: BLOOD SPECIMENOrdering Facility: [facility] Address: [address] [place] [address] Performed By: #### 5 8410-2 ####[facility] LABORATORYCLIA [id number] [place] [address] [place] Platelet mean volume (Bld) [Entitic vol] 11.3 fL Normal 9.0-12.7 [facility] Comment on above: Order Comment: Speci men Type: BLOOD SPECIMENOrdering Facility: [facility] Address: [address] [place] [address] Performed By: #### 5 8410-2 ####[facility] LABORATORYCLIA [id number] [place] [id number] [place] Platelets (Bld) [#/Vol] 239 10*3/uL Normal 150-400 [facility] Comment on above: Order Comment: Speci men Type: BLOOD SPECIMENOrdering Facility: [facility] Address: [address] [place] [address] Performed By: #### 5 8410-2 ####[facility] LABORATORYCLIA [id number] [place] [id number] [place] RBC (Bld) [#/Vol] 4.08 10*6/uL Normal 3.90-5.20 [facility] Comment on above: Order Comment: Speci men Type: BLOOD SPECIMENOrdering Facility: [facility] Address: [address] [place] [address] Performed By: #### 5 8410-2 ####[facility]ORATORYCLIA [id number] [place] [id number] [place] WBC (Bld) [#/Vol] 2.99 10*3/uL Low 3.70-11.00 [facility] Comment on above: Order Comment: Speci men Type: BLOOD SPECIMENOrdering Facility: [facility] Address: [address] [place] [address] Performed By: #### 5 8410-2 ####OSVAL[facility] LABORATORYCLIA [id number] [place] [id number] [place] CNDSon 11-19-2022 CNDS Normal [facility] Magnesium [facility] Magnesium [Mass/Vol] 1.9 mg/dL Normal 1.7-2.3 [facility] Comment on above: Order Comment: Speci men Type: BLOOD SPECIMENOrdering Facility: [facility] Address: [address] [place] [address] Performed By: #### 1 9123-9, 75976-0, 2777-1 ####OSVAL[facility] LABORATORYCLIA [id number] [place] [id number] [place] NURSING PROGon 11-19-2022 NURSING PROG Normal [facility] Phosphate SerPl-mCncon 11-19 Phosphate [Mass/Vol] 4.1 mg/dL Normal 2.7-4.8 [facility] Comment on above: Order Comment: Speci men Type: BLOOD SPECIMENOrdering Facility: [facility] Address: [address] [place] [address] Performed By: #### 1 9123-9, 94375-1, 2777-1 ####[facility] LABORATORYCLIA [id number] [place] [address] [place] Basic metabolic 2000 panelon 11-18-2022 Anion gap [Moles/Vol] 10 mmol/L Normal 9-18 [facility] Comment on above: Order Comment: Speci men Type: BLOOD SPECIMENOrdering Facility: [facility] Address: [address] [address] Performed By: #### 2 4321-2 ####[facility] [facility]ORATORYCLIA [id number] [place] [address] [place] Calcium [Mass/Vol] 8.8 mg/dL Normal 8.5-10.2 [facility] Comment on above: Order Comment: Speci men Type: BLOOD SPECIMENOrdering Facility: [facility] Address: [address] [place] [address] Performed By: #### 2 4321-2 ####[facility] LABORATORYCLIA [id number] [place] [address] [place] Chloride [Moles/Vol] 105 mmol/L Normal 97-105 [facility] Comment on above: Order Comment: Speci men Type: BLOOD SPECIMENOrdering Facility: [facility] Address: [address] [place] [address] Performed By: #### 2 4321-2 ####[facility] LABORATORYCLIA [id number] [place] [address] [place] CO2 [Moles/Vol] 22 mmol/L Normal 22-30 [facility] Comment on above: Order Comment: Speci men Type: BLOOD SPECIMENOrdering Facility: [facility] Address: [address] [place] [address] Performed By: #### 2 4321-2 ####[facility]ORATORYCLIA [id number] [place] [address] [place] Creatinine [Mass/Vol] 0.61 mg/dL Normal 0.58-0.96 [facility] Comment on above: Order Comment: Speci men Type: BLOOD SPECIMENOrdering Facility: [facility] Address: [address] [place] [address] Performed By: #### 2 4321-2 ####[facility] LABORATORYCLIA [id number] [place] [address] [place] Creatinine and Glomerular filtration rate.predicted panel (S/P/Bld) 121 mL/min/1.73m??? Normal >=60 [facility] Comment on above: Order Comment: Geraldo marrero Type: BLOOD SPECIMENOrdering Facility: [facility] Address: [address] [place] [address] Result Comment: Jessica mated Glomerular Filtration Rate [...] actual GFR. Performed By: #### 2 4321-2 ####[facility]ORATORYCLIA [id number] [place] [address] [place] Glucose [Mass/Vol] 115 mg/dL High 74-99 [facility] Comment on above: Order Comment: Geraldo marrero Type: BLOOD SPECIMENOrdering Facility: [facility] Address: [address] [place] [address] Result Comment: The [place] [employer] (ADA) provides guidance for cutoff [...] Standards of Medical Care in Diabetes 2016, [place] [employer]. Diabetes Care. 2016.39(Suppl 1). Performed By: #### 2 4321-2 ####[facility]ORATORYCLIA [id number] [place] [address] [place] Potassium [Moles/Vol] 4.2 mmol/L Normal 3.7-5.1 [facility] Comment on above: Order Comment: Speci men Type: BLOOD SPECIMENOrdering Facility: [facility] Address: [address] [place] [address] Performed By: #### 2 4321-2 ####[facility]ORATORYCLIA [id number] [place] [id number] [place] Sodium [Moles/Vol] 137 mmol/L Normal 136-144 [facility] Comment on above: Order Comment: Speci men Type: BLOOD SPECIMENOrdering Facility: [facility] Address: [address] [place] [address] Performed By: #### 2 4321-2 ####[facility] LABORATORYCLIA [id number] [place] [address] [place] Urea nitrogen [Mass/Vol] 6 mg/dL Low 7-21 [facility] Comment on above: Order Comment: Speci men Type: BLOOD SPECIMENOrdering Facility: [facility] Address: [address] [place] [address] Performed By: #### 2 4321-2 ####[facility] LABORATORYCLIA [id number] [place] [address] [place] CASE MGT INIT ASSESon 2022 CASE MGT INIT ASSES Normal [facility] CBC panel Auto (Bld)on 11-18 Erythrocyte distribution width (RBC) [Ratio] 13.0 % Normal 11.5-15.0 [facility] Comment on above: Order Comment: Speci men Type: BLOOD SPECIMENOrdering Facility: [facility] Address: [address] [place] [address] Performed By: #### 5 8410-2 ####[facility]ORATORYCLIA [id number] [place] [address] [place] Hematocrit (Bld) [Volume fraction] 35.7 % Low 36.0-46.0 [facility] Comment on above: Order Comment: Speci men Type: BLOOD SPECIMENOrdering Facility: [facility] Address: [address] [place] [address] Performed By: #### 5 8410-2 ####[facility] LABORATORYCLIA [id number] [address] [place] Hemoglobin (Bld) [Mass/Vol] 12.3 g/dL Normal 11.5-15.5 [facility] Comment on above: Order Comment: Speci men Type: BLOOD SPECIMENOrdering Facility: [facility] Address: [address] [place] [address] Performed By: #### 5 8410-2 ####[facility] LABORATORYCLIA [id number] [address] [place] MCH (RBC) [Entitic mass] 31.1 pg Normal 26.0-34.0 [facility] Comment on above: Order Comment: Speci men Type: BLOOD SPECIMENOrdering Facility: [facility] Address: [address] [place] [address] Performed By: #### 5 8410-2 ####[facility] LABORATORYCLIA [id number] [address] [place] MCHC (RBC) [Mass/Vol] 34.5 g/dL Normal 30.5-36.0 [facility] Comment on above: Order Comment: Speci men Type: BLOOD SPECIMENOrdering Facility: [facility] Address: [address] [place] [address] Performed By: #### 5 8410-2 ####[facility] LABORATORYCLIA [id number] [address] [place] MCV (RBC) [Entitic vol] 90.2 fL Normal 80.0-100.0 [facility] Comment on above: Order Comment: Speci men Type: BLOOD SPECIMENOrdering Facility: [facility] Address: [address] [place] [address] Performed By: #### 5 8410-2 ####[facility] LABORATORYCLIA [id number] [address] [place] Nucleated RBC (Bld) [#/Vol] 10*3/uL Normal <0.01 [facility] Comment on above: Order Comment: Speci men Type: BLOOD SPECIMENOrdering Facility: [facility] Address: [address] [address] Performed By: #### 5 8410-2 ####[facility] LABORATORYCLIA [id number] [place] [address] [place] Platelet mean volume (Bld) [Entitic vol] 11.2 fL Normal 9.0-12.7 [facility] Comment on above: Order Comment: Speci men Type: BLOOD SPECIMENOrdering Facility: [facility] Address: [address] [address] Performed By: #### 5 8410-2 ####[facility] LABORATORYCLIA [id number] [place] [address] [place] Platelets (Bld) [#/Vol] 214 10*3/uL Normal 150-400 [facility] Comment on above: Order Comment: Speci men Type: BLOOD SPECIMENOrdering Facility: [facility] Address: [address] [address] Performed By: #### 5 8410-2 ####[facility]ORATORYCLIA [id number] [place] [address] [place] RBC (Bld) [#/Vol] 3.96 10*6/uL Normal 3.90-5.20 [facility] Comment on above: Order Comment: Speci men Type: BLOOD SPECIMENOrdering Facility: [facility] Address: [address] [address] Performed By: #### 5 8410-2 ####[facility] LABORATORYCLIA [id number] [place] [address] [place] WBC (Bld) [#/Vol] 3.48 10*3/uL Low 3.70-11.00 [facility] Comment on above: Order Comment: Speci men Type: BLOOD SPECIMENOrdering Facility: [facility] Address: [address] [place] [address] Performed By: #### 5 8410-2 ####[facility] LABORATORYCLIA [id number] [address] [place] NUR[place] PROGon 11-18-2022 NURSING PROG Normal [facility] Urinalysis complete panel (U )on 11-18-2022 Bacteria LM.HPF (Urine sed) [#/Area] Rare Abnormal None Seen [facility] Comment on above: Order Comment: Speci men Type: URINE SPECIMENOrdering Facility: [facility] Address: [address] [place] [address] Performed By: #### 2 4356-8 ####[facility] [facility]ORATORYCLIA [id number] [address] [place] [facility] Bilirubin Ql (U) Negative Normal Negative [facility] Comment on above: Order Comment: Speci men Type: URINE SPECIMENOrdering Facility: [facility] Address: [address] [place] [address] Performed By: #### 2 4356-8 ####[facility]ORATORYCLIA [id number] [address] [place] Clarity (Unsp spec) Clear Normal Clear [facility] Comment on above: Order Comment: Speci men Type: URINE SPECIMENOrdering Facility: [facility] Address: [address] [place] [address] Performed By: #### 2 4356-8 ####[facility]ORATORYCLIA [id number] [address] [place] Color (U) Colorless Normal Yellow [facility] Comment on above: Order Comment: Speci men Type: URINE SPECIMENOrdering Facility: [facility] Address: [address] [address] Performed By: #### 2 4356-8 ####[facility]ORATORYCLIA [id number] [address] [place] Epithelial cells LM.HPF (Urine sed) [#/Area] Few Normal [facility] Comment on above: Order Comment: Speci men Type: URINE SPECIMENOrdering Facility: [facility] Address: [address] [address] Performed By: #### 2 4356-8 ####[facility]ORATORYCLIA [id number] [address] [place] Glucose Test strip (U) [Mass/Vol] Negative Normal Trace, Negative [facility] Comment on above: Order Comment: Speci men Type: URINE SPECIMENOrdering Facility: [facility] Address: [address] [address] Performed By: #### 2 4356-8 ####[facility] LABORATORYCLIA [id number] [place] [address] [place] Hemoglobin Ql (U) Negative Normal Negative, Trace Fa [facility] Comment on above: Order Comment: Speci men Type: URINE SPECIMENOrdering Facility: [facility] Address: [address] [place] [address] Performed By: #### 2 4356-8 ####[facility] LABORATORYCLIA [id number] [address] Ketones Ql (U) Negative Normal Negative, Trace [facility] Comment on above: Order Comment: Speci men Type: URINE SPECIMENOrdering Facility: [facility] Address: [address] [address] Performed By: #### 2 4356-8 ####[facility] LABORATORYCLIA [id number] [address] Leukocyte esterase Test strip Ql (U) Negative Normal Negative, 25 Patito/uL [facility] Comment on above: Order Comment: Speci men Type: URINE SPECIMENOrdering Facility: [facility] Address: [address] [address] Performed By: #### 2 4356-8 ####[facility] LABORATORYCLIA [id number] [address] [place] Nitrite Ql (U) Negative Normal Negative [facility] Comment on above: Order Comment: Speci men Type: URINE SPECIMENOrdering Facility: [facility] Address: [address] [address] Performed By: #### 2 4356-8 ####[facility] LABORATORYCLIA [id number] [address] [place] pH (U) 7.5 [pH] Normal 5.0-8.0 [facility] Comment on above: Order Comment: Speci men Type: URINE SPECIMENOrdering Facility: [facility] Address: [address] [place] [address] Performed By: #### 2 4356-8 ####[facility]ORATORYCLIA [id number] [address] [place] Protein (U) [Mass/Vol] Negative Normal Trace, Negative [facility] Comment on above: Order Comment: Speci men Type: URINE SPECIMENOrdering Facility: [facility] Address: [address] [address] Performed By: #### 2 4356-8 ####[facility] LABORATORYCLIA [id number] [place] [address] [place] RBC LM.HPF (Urine sed) [#/Area] 0-3 /HPF Normal 0-3 /HPF [facility] Comment on above: Order Comment: Speci men Type: URINE SPECIMENOrdering Facility: [facility] Address: [address] [address] Performed By: #### 2 4356-8 ####[facility] LABORATORYIA [id number] [address] [place] Specific gravity (U) [Rel density] 1.007 Normal 1.005-1.030 [facility] Comment on above: Order Comment: Speci men Type: URINE SPECIMENOrdering Facility: [facility] Address: [address] [address] Performed By: #### 2 4356-8 ####[facility] LABORATORYCLIA [id number] [place] [address] [place] Urobilinogen Ql (U) Negative Normal Negative [facility] Comment on above: Order Comment: Speci men Type: URINE SPECIMENOrdering Facility: [facility] Address: [address] [address] Performed By: #### 2 4356-8 ####[facility]ORATORYCLIA [id number] [address] WBC LM.HPF (Urine sed) [#/Area] 0-5 /HPF Normal 0-5 /HPF [facility] Comment on above: Order Comment: Speci men Type: URINE SPECIMENOrdering Facility: [facility] Address: [address] [place] [address] Performed By: #### 2 4356-8 ####[facility] LABORATORYCLIA [id number] [place] [address] [place] [facility] Bilirubin Ql (U) Negative Normal Negative [facility] Comment on above: Order Comment: Speci men Type: URINE SPECIMENOrdering Facility: [facility] Address: [address] [place] [address] Performed By: #### 2 4356-8 ####[facility] LABORATORYCLIA [id number] [address] Clarity (Unsp spec) Clear Normal Clear [facility] Comment on above: Order Comment: Speci men Type: URINE SPECIMENOrdering Facility: [facility] Address: [address] [place] [address] Performed By: #### 2 4356-8 ####[facility] [facility]ORATORYCLIA [id number] [address] Color (U) Colorless Normal Yellow [facility] Comment on above: Order Comment: Speci men Type: URINE SPECIMENOrdering Facility: [facility] Address: [address] [place] [address] Performed By: #### 2 4356-8 ####[facility] [facility]ORATORYCLIA [id number] [address] [place] Epithelial cells LM.HPF (Urine sed) [#/Area] Few Normal [facility] Comment on above: Order Comment: Speci men Type: URINE SPECIMENOrdering Facility: [facility] Address: [address] [place] [address] Performed By: #### 2 4356-8 ####[facility] LABORATORYCLIA [id number] [address] Glucose Test strip (U) [Mass/Vol] Negative Normal Trace, Negative [facility] Comment on above: Order Comment: Speci men Type: URINE SPECIMENOrdering Facility: [facility] Address: [address] [place] [address] Performed By: #### 2 4356-8 ####[facility] LABORATORYCLIA [id number] [place] [address] [place] Hemoglobin Ql (U) Negative Normal Negative, Trace Fa [facility] Comment on above: Order Comment: Speci men Type: URINE SPECIMENOrdering Facility: [facility] Address: [address] [place] [address] Performed By: #### 2 4356-8 ####[facility] LABORATORYCLIA [id number] [address] [place] Ketones Ql (U) Negative Normal Negative, Trace [facility] Comment on above: Order Comment: Speci men Type: URINE SPECIMENOrdering Facility: [facility] Address: [address] [place] [address] Performed By: #### 2 4356-8 ####[facility] LABORATORYCLIA [id number] [address] Leukocyte esterase Test strip Ql (U) Negative Normal Negative, 25 Patito/uL [facility] Comment on above: Order Comment: Speci men Type: URINE SPECIMENOrdering Facility: [facility] Address: [address] [place] [address] Performed By: #### 2 4356-8 ####[facility] LABORATORYCLIA [id number] [address] [place] Nitrite Ql (U) Negative Normal Negative [facility] Comment on above: Order Comment: Speci men Type: URINE SPECIMENOrdering Facility: [facility] Address: [address] [place] [address] Performed By: #### 2 4356-8 ####[facility] LABORATORYCLIA [id number] [place] [address] [place] pH (U) 7.5 [pH] Normal 5.0-8.0 [facility] Comment on above: Order Comment: Speci men Type: URINE SPECIMENOrdering Facility: [facility] Address: [address] [place] [address] Performed By: #### 2 4356-8 ####[facility]ORATORYCLIA [id number] [address] [place] Protein (U) [Mass/Vol] Negative Normal Trace, Negative [facility] Comment on above: Order Comment: Speci men Type: URINE SPECIMENOrdering Facility: [facility] Address: [address] [place] [address] Performed By: #### 2 4355-8 ####[facility]ORATORYCLIA [id number] [address] [place] RBC LM.HPF (Urine sed) [#/Area] 0-3 /HPF Normal 0-3 /HPF [facility] Comment on above: Order Comment: Speci men Type: URINE SPECIMENOrdering Facility: [facility] Address: [address] [place] [address] Performed By: #### 2 6-8 ####[facility]ORATORYCLIA [id number] [place] [address] [place] Specific gravity (U) [Rel density] 1.006 Normal 1.005-1.030 [facility] Comment on above: Order Comment: Speci men Type: URINE SPECIMENOrdering Facility: [facility] Address: [address] [place] [address] Performed By: #### 2 4355-8 ####[facility]ORATORYCLIA [id number] [address] [place] Urobilinogen Ql (U) Negative Normal Negative [facility] Comment on above: Order Comment: Speci men Type: URINE SPECIMENOrdering Facility: [facility] Address: [address] [place] [address] Performed By: #### 2 4356-8 ####[facility]ORATORYCLIA [id number] [place] [address] [place] WBC LM.HPF (Urine sed) [#/Area] 0-5 /HPF Normal 0-5 /HPF [facility] Comment on above: Order Comment: Speci men Type: URINE SPECIMENOrdering Facility: [facility] Address: [address] [place] [address] Performed By: #### 2 4356-8 ####[facility]ORATORYCLIA [id number] [place] [id number] [place] ALLIED HEALTHon 11-17-2022 ALLIED HEALTH Normal [facility] CBC W Auto Differential pane l (Bld)on 11-17-2022 Basophils (Bld) [#/Vol] 0.03 10*3/uL Normal <0.11 [facility] Comment on above: Order Comment: Speci men Type: BLOOD SPECIMENOrdering Facility: [facility] Address: [address] [place] [address] Performed By: #### 5 7021-8 ####[facility]ORATORYCLIA [id number] [place] [address] [place] Basophils/100 WBC (Bld) 0.7 % Normal [facility] Comment on above: Order Comment: Speci men Type: BLOOD SPECIMENOrdering Facility: [facility] Address: [address] [place] [address] Performed By: #### 5 7021-8 ####[facility]ORATORYCLIA [id number] [place] [address] [place] Differential cell count method Nom (Bld) Auto Normal [facility] Comment on above: Order Comment: Speci men Type: BLOOD SPECIMENOrdering Facility: [facility] Address: [address] [place] [address] Performed By: #### 5 7021-8 ####[facility]ORATORYCLIA [id number] [place] [id number] [place] Eosinophils (Bld) [#/Vol] 0.07 10*3/uL Normal <0.46 [facility] Comment on above: Order Comment: Speci men Type: BLOOD SPECIMENOrdering Facility: [facility] Address: [address] [place] [address] Performed By: #### 5 7021-8 ####[facility] LABORATORYCLIA [id number] [place] [address] [place] Eosinophils/100 WBC (Bld) 1.7 % Normal [facility] Comment on above: Order Comment: Speci men Type: BLOOD SPECIMENOrdering Facility: [facility] Address: [address] [place] [address] Performed By: #### 5 7021-8 ####[facility] LABORATORYCLIA [id number] [place] [address] [place] Erythrocyte distribution width (RBC) [Ratio] 13.2 % Normal 11.5-15.0 [facility] Comment on above: Order Comment: Speci men Type: BLOOD SPECIMENOrdering Facility: [facility] Address: [address] [place] [address] Performed By: #### 5 7021-8 ####[facility]ORATORYCLIA [id number] [place] [address] [place] Hematocrit (Bld) [Volume fraction] 37.2 % Normal 36.0-46.0 [facility] Comment on above: Order Comment: Speci men Type: BLOOD SPECIMENOrdering Facility: [facility] Address: [address] [place] [address] Performed By: #### 5 7021-8 ####[facility] LABORATORYCLIA [id number] [place] [address] [place] Hemoglobin (Bld) [Mass/Vol] 12.9 g/dL Normal 11.5-15.5 [facility] Comment on above: Order Comment: Speci men Type: BLOOD SPECIMENOrdering Facility: [facility] Address: [address] [place] [address] Performed By: #### 5 7021-8 ####[facility] LABORATORYCLIA [id number] [address] [place] Immature granulocytes (Bld) [#/Vol] 10*3/uL Normal <0.10 [facility] Comment on above: Order Comment: Speci men Type: BLOOD SPECIMENOrdering Facility: [facility] Address: [address] [address] Performed By: #### 5 7021-8 ####[facility] LABORATORYCLIA [id number] [address] Immature granulocytes/100 WBC (Bld) 0.2 % Normal [facility] Comment on above: Order Comment: Speci men Type: BLOOD SPECIMENOrdering Facility: [facility] Address: [address] [address] Performed By: #### 5 7021-8 ####[facility] LABORATORYCLIA [id number] [place] [address] [place] Lymphocytes (Bld) [#/Vol] 1.81 10*3/uL Normal 1.00-4.00 [facility] Comment on above: Order Comment: Speci men Type: BLOOD SPECIMENOrdering Facility: [facility] Address: [address] [address] Performed By: #### 5 7021-8 ####[facility] LABORATORYCLIA [id number] [address] Lymphocytes/100 WBC (Bld) 44.6 % Normal [facility] Comment on above: Order Comment: Speci men Type: BLOOD SPECIMENOrdering Facility: [facility] Address: [address] [place] [address] Performed By: #### 5 7021-8 ####[facility] LABORATORYCLIA [id number] [place] [address] [place] MCH (RBC) [Entitic mass] 31.1 pg Normal 26.0-34.0 [facility] Comment on above: Order Comment: Speci men Type: BLOOD SPECIMENOrdering Facility: [facility] Address: [address] [place] [address] Performed By: #### 5 7021-8 ####[facility] LABORATORYCLIA [id number] [address] [place] MCHC (RBC) [Mass/Vol] 34.7 g/dL Normal 30.5-36.0 [facility] Comment on above: Order Comment: Speci men Type: BLOOD SPECIMENOrdering Facility: [facility] Address: [address] [address] Performed By: #### 5 7021-8 ####[facility] LABORATORYCLIA [id number] [place] [address] [place] MCV (RBC) [Entitic vol] 89.6 fL Normal 80.0-100.0 [facility] Comment on above: Order Comment: Speci men Type: BLOOD SPECIMENOrdering Facility: [facility] Address: [address] [address] Performed By: #### 5 7021-8 ####[facility] LABORATORYCLIA [id number] [place] [address] [place] Monocytes (Bld) [#/Vol] 0.21 10*3/uL Normal <0.87 [facility] Comment on above: Order Comment: Speci men Type: BLOOD SPECIMENOrdering Facility: [facility] Address: [address] [address] Performed By: #### 5 7021-8 ####[facility] LABORATORYCLIA [id number] [address] Monocytes/100 WBC (Bld) 5.2 % Normal [facility] Comment on above: Order Comment: Speci men Type: BLOOD SPECIMENOrdering Facility: [facility] Address: [address] [address] Performed By: #### 5 7021-8 ####[facility] LABORATORYCLIA [id number] [place] [address] [place] Neutrophils (Bld) [#/Vol] 1.93 10*3/uL Normal 1.45-7.50 [facility] Comment on above: Order Comment: Speci men Type: BLOOD SPECIMENOrdering Facility: [facility] Address: [address] [address] Performed By: #### 5 7021-8 ####[facility] LABORATORYCLIA [id number] [place] [address] [place] Neutrophils/100 WBC (Bld) 47.6 % Normal [facility] Comment on above: Order Comment: Speci men Type: BLOOD SPECIMENOrdering Facility: [facility] Address: [address] [place] [address] Performed By: #### 5 7021-8 ####[facility]ORATORYCLIA [id number] [place] [address] [place] Nucleated RBC (Bld) [#/Vol] 10*3/uL Normal <0.01 [facility] Comment on above: Order Comment: Speci men Type: BLOOD SPECIMENOrdering Facility: [facility] Address: [address] [place] [address] Performed By: #### 5 7021-8 ####[facility] LABORATORYCLIA [id number] [place] [address] [place] Nucleated RBC/100 WBC (Bld) [Ratio] 0.0 /100 WBC Normal [facility] Comment on above: Order Comment: Speci men Type: BLOOD SPECIMENOrdering Facility: [facility] Address: [address] [place] [address] Performed By: #### 5 7021-8 ####[facility] LABORATORYCLIA [id number] [place] [address] [place] Platelet mean volume (Bld) [Entitic vol] 11.9 fL Normal 9.0-12.7 [facility] Comment on above: Order Comment: Speci men Type: BLOOD SPECIMENOrdering Facility: [facility] Address: [address] [place] [address] Performed By: #### 5 7021-8 ####[facility] LABORATORYCLIA [id number] [place] [id number] [place] Platelets (Bld) [#/Vol] 85 10*3/uL Low 150-400 [facility] Comment on above: Order Comment: Speci men Type: BLOOD SPECIMENOrdering Facility: [facility] Address: [address] [place] [address] Result Comment: Resu lts may be inaccurate due to the presence of microclots. Performed By: #### 5 7021-8 ####[facility]ORATORYCLIA [id number] [place] [id number] [place] RBC (Bld) [#/Vol] 4.15 10*6/uL Normal 3.90-5.20 [facility] Comment on above: Order Comment: Speci men Type: BLOOD SPECIMENOrdering Facility: [facility] Address: [address] [address] Performed By: #### 5 7021-8 ####[facility]ORATORYCLIA [id number] [place] [id number] [facility] WBC (Bld) [#/Vol] 4.06 10*3/uL Normal 3.70-11.00 [facility] Comment on above: Order Comment: Speci men Type: BLOOD SPECIMENOrdering Facility: [facility] Address: [address] [place] [address] Result Comment: Resu lts may be inaccurate due to the presence of microclots. Performed By: #### 5 7021-8 ####[facility]ORATORYCLIA [id number] [place] [id number] [place] CONSULTon 11-17-2022 CONSULT Normal [facility] CT ABD/PEL W IVCONon 023 CT ABD/PEL W IVCON Normal [facility] Comprehensive metabolic 2000 panelon 11-17-2022 Albumin [Mass/Vol] 4.2 g/dL Normal 3.9-4.9 [facility] Comment on above: Order Comment: Speci men Type: BLOOD SPECIMENOrdering Facility: [facility] Address: [address] [address] Performed By: #### 3 040-3, 61486-6 ####[place] [facility]ORYCLIA [id number] [address] ALP [Catalytic activity/Vol] 69 U/L Normal 34-123 [facility] Comment on above: Order Comment: Speci men Type: BLOOD SPECIMENOrdering Facility: [facility] Address: [address] [place] [address] Performed By: #### 3 040-3, ####[facility]ORATORYCLIA [id number] [place] [id number] [place] ALT [Catalytic activity/Vol] 22 U/L Normal 7-38 [facility] Comment on above: Order Comment: Speci men Type: BLOOD SPECIMENOrdering Facility: [facility] Address: [address] [address] Performed By: #### 3 040-3, ####[facility]ORATORYCLIA [id number] [place] [address] [place] Anion gap [Moles/Vol] 9 mmol/L Normal 9-18 [facility] Comment on above: Order Comment: Speci men Type: BLOOD SPECIMENOrdering Facility: [facility] Address: [address] [address] Performed By: #### 3 040-3, ####[facility]ORATORYCLIA [id number] [address] [place] AST [Catalytic activity/Vol] 40 U/L High 13-35 [facility] Comment on above: Order Comment: Speci men Type: BLOOD SPECIMENOrdering Facility: [facility] Address: [address] [place] [address] Performed By: #### 3 040-3, ####[facility]ORATORYCLIA [id number] [place] [address] [place] Bilirubin [Mass/Vol] 0.4 mg/dL Normal 0.2-1.3 [facility] Comment on above: Order Comment: Speci men Type: BLOOD SPECIMENOrdering Facility: [facility] Address: [address] [address] Performed By: #### 3 040-3, ####[facility]ORATORYCLIA [id number] [place] [address] [place] Calcium [Mass/Vol] 8.8 mg/dL Normal 8.5-10.2 [facility] Comment on above: Order Comment: Speci men Type: BLOOD SPECIMENOrdering Facility: [facility] Address: [address] [address] Performed By: #### 3 040-3, ####[facility]ORATORYCLIA [id number] [place] [id number] [place] Chloride [Moles/Vol] 107 mmol/L High 97-105 [facility] Comment on above: Order Comment: Speci men Type: BLOOD SPECIMENOrdering Facility: [facility] Address: [address] [address] Performed By: #### 3 040-3, ####[facility]ORATORYCLIA [id number] [place] [address] [place] CO2 [Moles/Vol] 23 mmol/L Normal 22-30 [facility] Comment on above: Order Comment: Speci men Type: BLOOD SPECIMENOrdering Facility: [facility] Address: [address] [place] [address] Performed By: #### 3 040-3, ####[facility]ORATORYCLIA [id number] [place] [address] [place] Creatinine [Mass/Vol] 0.75 mg/dL Normal 0.58-0.96 [facility] Comment on above: Order Comment: Speci men Type: BLOOD SPECIMENOrdering Facility: [facility] Address: [address] [place] [address] Performed By: #### 3 040-3, ####[facility]ORATORYCLIA [id number] [address] Creatinine and Glomerular filtration rate.predicted panel (S/P/Bld) 108 mL/min/1.73m??? Normal >=60 [facility] Comment on above: Order Comment: Speci men Type: BLOOD SPECIMENOrdering Facility: [facility] Address: [address] [place] [address] Result Comment: Jessica mated Glomerular Filtration Rate [...] actual GFR. Performed By: #### 3 040-3, 37575-6 ####[facility] LABORATORYCLIA [id number] [place] [address] [place] Glucose [Mass/Vol] 80 mg/dL Normal 74-99 [facility] Comment on above: Order Comment: Geraldo marrero Type: BLOOD SPECIMENOrdering Facility: [facility] Address: [address] [id number] Result Comment: The [place] [employer] (ADA) provides guidance for cutoff [...] Standards of Medical Care in Diabetes 2016, [place] [employer]. Diabetes Care. 2016.39(Suppl 1). Performed By: #### 3 040-3, 67884-1 ####[facility]ORATORYCLIA [id number] [place] [id number] [place] Potassium [Moles/Vol] 4.3 mmol/L Normal 3.7-5.1 [facility] Comment on above: Order Comment: Geraldo marrero Type: BLOOD SPECIMENOrdering Facility: [facility] Address: [address] [phone] Performed By: #### 3 040-3, 50705-1 ####[facility] LABORATORYCLIA [id number] [place] [address] [place] Protein [Mass/Vol] 6.9 g/dL Normal 6.3-8.0 [facility] Comment on above: Order Comment: Geraldo marrero Type: BLOOD SPECIMENOrdering Facility: [facility] Address: [address] [phone] Performed By: #### 3 040-3, ####[place] [facility]ORYCLIA [id number] [address] [address] [facility] Sodium [Moles/Vol] 139 mmol/L Normal 136-144 [facility] Comment on above: Order Comment: Speci men Type: BLOOD SPECIMENOrdering Facility: [facility] Address: [address] [address] Performed By: #### 3 040-3, ####[facility] [facility]ATORYCLIA [id number] [address] [id number] [facility] Urea nitrogen [Mass/Vol] 8 mg/dL Normal 7-21 [facility] Comment on above: Order Comment: Speci men Type: BLOOD SPECIMENOrdering Facility: [facility] Address: [address] [address] Performed By: #### 3 040-3, ####[place] [facility]ATORYCLIA [id number] [address] [facility] ED NOTEon 11-17-2022 ED NOTE HNO ID: [id number] Author: Jayla Jean RN Service: ? Author Type: Registered Nurse Type: ED Notes Filed: 11/17/2022 2:00 PM Note Text: Pt sts symptoms she feels like she is going to pass out in WR. Vitals rechecked and DS done Normal [facility] ED PROV NOTEon 11-17-2022 ED PROV NOTE Normal [facility] ED PROV NOTE Normal [facility] ED Triage Noteon 11-17-2022 ED Triage Note Normal [facility] Lipase SerPl-cCncon 11-18-19 23 Lipase [Catalytic activity/Vol] 26 U/L Normal 16-61 [facility] Comment on above: Order Comment: Speci men Type: BLOOD SPECIMENOrdering Facility: [facility] Address: [address] [address] Performed By: #### 3 040-3, 15146-3 ####[facility]ORATORYCLIA [id number] [place] [address] [place] NURSING PROGon 11-17-2022 NURSING PROG Normal [facility] NURSING PROG Normal [facility] Ambulatory Visit Summaryon 1 Ambulatory Visit Summary Normal [facility] Office/Clini c Noteon 11-16-2022 Family Medicine Office/Clinic Note Normal [facility] Comment on above: Result Comment: Elec tronically Signed By: Cristhian REDDING, Jaquan Johnson\.br\Date and Time Signed: 11/16/22 10:42 EDT Basic metabolic 2000 panelon 11-12-2022 Anion gap [Moles/Vol] 12 mmol/L Normal 9-18 [facility] Comment on above: Order Comment: Speci men Type: BLOOD SPECIMENOrdering Facility: [facility] Address: [address] [place] [address] Performed By: #### 2 4321-2 ####[facility] [facility]ATORYCLIA [id number] [place] [address] [place] Calcium [Mass/Vol] 8.8 mg/dL Normal 8.5-10.2 [facility] Comment on above: Order Comment: Speci men Type: BLOOD SPECIMENOrdering Facility: [facility] Address: [address] [place] [address] Performed By: #### 2 4321-2 ####[facility]ORYCLIA [id number] [place] [address] [place] Chloride [Moles/Vol] 104 mmol/L Normal 97-105 [facility] Comment on above: Order Comment: Speci men Type: BLOOD SPECIMENOrdering Facility: [facility] Address: [address] [place] [address] Performed By: #### 2 4321-2 ####[facility]ATORYCLIA [id number] [place] [address] [place] CO2 [Moles/Vol] 20 mmol/L Low 22-30 [facility] Comment on above: Order Comment: Speci men Type: BLOOD SPECIMENOrdering Facility: [facility] Address: [address] [place] [address] Performed By: #### 2 4321-2 ####[facility]ATORYCLIA [id number] [place] [id number] [place] Creatinine [Mass/Vol] 0.62 mg/dL Normal 0.58-0.96 [facility] Comment on above: Order Comment: Geraldo marrero Type: BLOOD SPECIMENOrdering Facility: [facility] Address: [address] [place] [address] Performed By: #### 2 4321-2 ####[facility]ATORYCLIA [id number] [address] Creatinine and Glomerular filtration rate.predicted panel (S/P/Bld) 121 mL/min/1.73m??? Normal >=60 [facility] Comment on above: Order Comment: Geraldo marrero Type: BLOOD SPECIMENOrdering Facility: [facility] Address: [address] [place] [address] Result Comment: Jessica mated Glomerular Filtration Rate [...] actual GFR. Performed By: #### 2 4321-2 ####[facility]ATORYCLIA [id number] [place] [address] [place] Glucose [Mass/Vol] 102 mg/dL High 74-99 [facility] Comment on above: Order Comment: Geraldo elida Type: BLOOD SPECIMENOrdering Facility: [facility] Address: [address] [place] [address] Result Comment: The [place] Diabetes Association (ADA) provides guidance for cutoff [...] Standards of Medical Care in Diabetes 2016, [place] [employer]. Diabetes Care. 2016.39(Suppl 1). Performed By: #### 2 4321-2 ####[facility]ORATORYCLIA [id number] [place] [address] [place] Potassium [Moles/Vol] 4.2 mmol/L Normal 3.7-5.1 [facility] Comment on above: Order Comment: Speci men Type: BLOOD SPECIMENOrdering Facility: [facility] Address: [address] [address] Performed By: #### 2 4321-2 ####[facility]ORATORYCLIA [id number] [address] [place] Sodium [Moles/Vol] 136 mmol/L Normal 136-144 [facility] Comment on above: Order Comment: Speci men Type: BLOOD SPECIMENOrdering Facility: [facility] Address: [address] [address] Performed By: #### 2 4321-2 ####[facility]ATORYCLIA [id number] [place] [address] [place] Urea nitrogen [Mass/Vol] 8 mg/dL Normal 7-21 [facility] Comment on above: Order Comment: Speci men Type: BLOOD SPECIMENOrdering Facility: [facility] Address: [address] [address] Performed By: #### 2 4321-2 ####[facility]ORATORYCLIA [id number] [place] [id number] [place] CBC W Auto Differential pane l (Bld)on 11-12-2022 Basophils (Bld) [#/Vol] 10*3/uL Normal <0.11 [facility] Comment on above: Order Comment: Speci men Type: BLOOD SPECIMENOrdering Facility: [facility] Address: [address] [address] Performed By: #### 5 7021-8 ####[facility]ORATORYCLIA [id number] [address] [place] Basophils/100 WBC (Bld) 0.2 % Normal [facility] Comment on above: Order Comment: Speci men Type: BLOOD SPECIMENOrdering Facility: [facility] Address: [address] [place] [address] Performed By: #### 5 7021-8 ####[facility] LABORATORYCLIA [id number] [place] [address] [place] Differential cell count method Nom (Bld) Auto Normal [facility] Comment on above: Order Comment: Speci men Type: BLOOD SPECIMENOrdering Facility: [facility] Address: [address] [place] [address] Performed By: #### 5 7021-8 ####[facility] LABORATORYCLIA [id number] [place] [address] [place] Eosinophils (Bld) [#/Vol] 10*3/uL Normal <0.46 [facility] Comment on above: Order Comment: Speci men Type: BLOOD SPECIMENOrdering Facility: [facility] Address: [address] [place] [address] Performed By: #### 5 7021-8 ####[facility] LABORATORYCLIA [id number] [address] [place] Eosinophils/100 WBC (Bld) 0.0 % Normal [facility] Comment on above: Order Comment: Speci men Type: BLOOD SPECIMENOrdering Facility: [facility] Address: [address] [place] [address] Performed By: #### 5 7021-8 ####[facility] LABORATORYCLIA [id number] [address] [place] Erythrocyte distribution width (RBC) [Ratio] 12.6 % Normal 11.5-15.0 [facility] Comment on above: Order Comment: Speci men Type: BLOOD SPECIMENOrdering Facility: [facility] Address: [address] [place] [address] Performed By: #### 5 7021-8 ####[facility] LABORATORYCLIA [id number] [place] [address] [place] Hematocrit (Bld) [Volume fraction] 36.9 % Normal 36.0-46.0 [facility] Comment on above: Order Comment: Speci men Type: BLOOD SPECIMENOrdering Facility: [facility] Address: [address] [place] [address] Performed By: #### 5 7021-8 ####[facility] LABORATORYCLIA [id number] [place] [address] [place] Hemoglobin (Bld) [Mass/Vol] 12.8 g/dL Normal 11.5-15.5 [facility] Comment on above: Order Comment: Speci men Type: BLOOD SPECIMENOrdering Facility: [facility] Address: [address] [place] [address] Performed By: #### 5 7021-8 ####[facility] LABORATORYCLIA [id number] [place] [address] [place] Immature granulocytes (Bld) [#/Vol] 0.08 10*3/uL Normal <0.10 [facility] Comment on above: Order Comment: Speci men Type: BLOOD SPECIMENOrdering Facility: [facility] Address: [address] [place] [address] Performed By: #### 5 7021-8 ####[facility] LABORATORYCLIA [id number] [address] [place] Immature granulocytes/100 WBC (Bld) 0.8 % Normal [facility] Comment on above: Order Comment: Speci men Type: BLOOD SPECIMENOrdering Facility: [facility] Address: [address] [place] [address] Performed By: #### 5 7021-8 ####[facility] LABORATORYCLIA [id number] [place] [address] [place] Lymphocytes (Bld) [#/Vol] 1.23 10*3/uL Normal 1.00-4.00 [facility] Comment on above: Order Comment: Speci men Type: BLOOD SPECIMENOrdering Facility: [facility] Address: [address] [place], [place] [id number] Performed By: #### 5 7021-8 ####[facility] [facility]ATORYCLIA [id number] [address] Lymphocytes/100 WBC (Bld) 12.8 % Normal [facility] Comment on above: Order Comment: Speci men Type: BLOOD SPECIMENOrdering Facility: [facility] Address: [address] [place] [address] Performed By: #### 5 7021-8 ####[facility]ORATORYCLIA [id number] [address] STATES [facility] MCH (RBC) [Entitic mass] 30.4 pg Normal 26.0-34.0 [facility] Comment on above: Order Comment: Speci men Type: BLOOD SPECIMENOrdering Facility: [facility] Address: [address] [place] [address] Performed By: #### 5 7021-8 ####[facility]ORATORYCLIA [id number] [address] MCHC (RBC) [Mass/Vol] 34.7 g/dL Normal 30.5-36.0 [facility] Comment on above: Order Comment: Speci men Type: BLOOD SPECIMENOrdering Facility: [facility] Address: [address] [place] [address] Performed By: #### 5 7021-8 ####[facility] [facility]ATORYCLIA [id number] [address] MCV (RBC) [Entitic vol] 87.6 fL Normal 80.0-100.0 [facility] Comment on above: Order Comment: Speci men Type: BLOOD SPECIMENOrdering Facility: [facility] Address: [address] [place] [address] Performed By: #### 5 7021-8 ####[facility] [facility]ATORYCLIA [id number] [address] Monocytes (Bld) [#/Vol] 0.42 10*3/uL Normal <0.87 [facility] Comment on above: Order Comment: Speci men Type: BLOOD SPECIMENOrdering Facility: [facility] Address: [address] [address] Performed By: #### 5 7021-8 ####[facility] LABORATORYCLIA [id number] [place] [address] [place] Monocytes/100 WBC (Bld) 4.4 % Normal [facility] Comment on above: Order Comment: Speci men Type: BLOOD SPECIMENOrdering Facility: [facility] Address: [address] [place] [address] Performed By: #### 5 7021-8 ####[facility] LABORATORYCLIA [id number] [place] [address] [place] Neutrophils (Bld) [#/Vol] 7.84 10*3/uL High 1.45-7.50 [facility] Comment on above: Order Comment: Speci men Type: BLOOD SPECIMENOrdering Facility: [facility] Address: [address] [place] [address] Performed By: #### 5 7021-8 ####[facility] LABORATORYCLIA [id number] [place] [address] [place] Neutrophils/100 WBC (Bld) 81.8 % Normal [facility] Comment on above: Order Comment: Speci men Type: BLOOD SPECIMENOrdering Facility: [facility] Address: [address] [place] [address] Performed By: #### 5 7021-8 ####[facility] LABORATORYCLIA [id number] [place] [address] [place] Nucleated RBC (Bld) [#/Vol] 10*3/uL Normal <0.01 [facility] Comment on above: Order Comment: Speci men Type: BLOOD SPECIMENOrdering Facility: [facility] Address: [address] [place] [address] Performed By: #### 5 7021-8 ####[facility] LABORATORYCLIA [id number] [place] [address] [place] Nucleated RBC/100 WBC (Bld) [Ratio] 0.0 /100 WBC Normal [facility] Comment on above: Order Comment: Speci men Type: BLOOD SPECIMENOrdering Facility: [facility] Address: [address] [address] Performed By: #### 5 7021-8 ####[facility] LABORATORYCLIA [id number] [place] [id number] [place] Platelet mean volume (Bld) [Entitic vol] 11.3 fL Normal 9.0-12.7 [facility] Comment on above: Order Comment: Speci men Type: BLOOD SPECIMENOrdering Facility: [facility] Address: [address] [address] Performed By: #### 5 7021-8 ####[facility]ORATORYCLIA [id number] [place] [address] [place] Platelets (Bld) [#/Vol] 253 10*3/uL Normal 150-400 [facility] Comment on above: Order Comment: Speci men Type: BLOOD SPECIMENOrdering Facility: [facility] Address: [address] [address] Performed By: #### 5 7021-8 ####[facility]ORATORYCLIA [id number] [place] [address] [place] RBC (Bld) [#/Vol] 4.21 10*6/uL Normal 3.90-5.20 [facility] Comment on above: Order Comment: Speci men Type: BLOOD SPECIMENOrdering Facility: [facility] Address: [address] [address] Performed By: #### 5 7021-8 ####[facility]ORATORYCLIA [id number] [place] [id number] [place] WBC (Bld) [#/Vol] 9.59 10*3/uL Normal 3.70-11.00 [facility] Comment on above: Order Comment: Speci men Type: BLOOD SPECIMENOrdering Facility: [facility] Address: [address] [place] [address] Performed By: #### 5 7021-8 ####[facility] LABORATORYCLIA [id number] [place] [address] [place] CNDSon 11-12-2022 CNDS [facility] CNPNon 11-12-2022 CNPN Normal [facility] NURSING PROGon 11-12-2022 NURSING PROG [facility] NUTRITIONon 11-12-2022 NUTRITION Normal [facility] ANES POSTPROC EVALon 023 ANES POSTPROC EVAL Normal [facility] ANES PRE-OPon 11-11-2022 ANES PRE-OP Normal [facility] BRIEF OP NOTon 11-11-2022 BRIEF OP NOT [facility] ERCPon 11-11-2022 ERCP [facility] NURSING PROGon 11-11-2022 NURSING PROG [facility] OPERATIVE NOon 11-11-2022 OPERATIVE NO [facility] PT EDon 11-11-2022 PT ED [facility] TYPE + SCREENon 11-11-2022 ABO O [facility] Comment on above: Order Comment: Speci men Type: BLOOD SPECIMENOrdering Facility: [facility] Address: [address] [place] [address] Performed By: #### T SCR ####[facility] [id number] [place] [address] [place] HISTORICAL AB SCR STATUS Negative [facility] Comment on above: Order Comment: Speci men Type: BLOOD SPECIMENOrdering Facility: [facility] Address: [address] [place] [address] Performed By: #### T SCR ####[facility] [id number] [place] [address] [place] Rh Nom (Bld) Positive [facility] Comment on above: Order Comment: Speci men Type: BLOOD SPECIMENOrdering Facility: [facility] Address: [address] [place] [address] Performed By: #### T SCR ####[facility] [id number] [place] [address] [place] TYPE AND SCREEN EXPIRATION 11/14/2022 23:59 Normal [facility] Comment on above: Order Comment: Speci men Type: BLOOD SPECIMENOrdering Facility: [facility] Address: [address] [address] Performed By: #### T [facility] ####[place] [facility] [id number] [place] [address] [place] XR ERCP READ ONLYon 11-12-19 XR ERCP READ ONLY Normal [facility] CNCOon 11-10-2022 CNCO Letter Text Normal [facility] CNPNon 11-10-2022 CNPN Normal [facility] CNPNon 11-09-2022 CNPN Normal [facility] Population Healthon 11-10-19 Population Health Normal [facility] CNDSon 11-08-2022 CNDS Normal [facility] Basic metabolic 2000 panelon 11-06-2022 Anion gap [Moles/Vol] 8 mmol/L Low 9-18 [facility] Comment on above: Order Comment: Speci men Type: BLOOD SPECIMENOrdering Facility: [facility] Address: [address] [address] Performed By: #### 2 4321-2 ####[facility] LABORATORYCLIA [id number] [place] [address] [place] Calcium [Mass/Vol] 8.6 mg/dL Normal 8.5-10.2 [facility]spital Comment on above: Order Comment: Speci men Type: BLOOD SPECIMENOrdering Facility: [facility] Address: [address] [place] [address] Performed By: #### 2 4321-2 ####[facility] LABORATORYCLIA [id number] [place] [address] [place] Chloride [Moles/Vol] 108 mmol/L High 97-105 [facility] Comment on above: Order Comment: Speci men Type: BLOOD SPECIMENOrdering Facility: [facility] Address: [address] [place] [address] Performed By: #### 2 4321-2 ####[facility] LABORATORYCLIA [id number] [place] [address] [place] CO2 [Moles/Vol] 24 mmol/L Normal 22-30 [facility] Comment on above: Order Comment: Speci men Type: BLOOD SPECIMENOrdering Facility: [facility] Address: [address] [address] Performed By: #### 2 4321-2 ####[facility] LABORATORYCLIA [id number] [facility] [place] [address] [place] Creatinine [Mass/Vol] 0.74 mg/dL Normal 0.58-0.96 [facility] Comment on above: Order Comment: Speci men Type: BLOOD SPECIMENOrdering Facility: [facility] Address: [address] Performed By: #### 2 4321-2 ####[facility] LABORATORYCLIA [id number] [facility] [place] [address] [facility] Creatinine and Glomerular filtration rate.predicted panel (S/P/Bld) 110 mL/min/1.73m??? Normal >=60 [facility] Comment on above: Order Comment: Speci men Type: BLOOD SPECIMENOrdering Facility: [facility] Address: [address] [address] Result Comment: Jessica mated Glomerular Filtration Rate [...] actual GFR. Performed By: #### 2 4321-2 ####[facility] LABORATORYCLIA [id number] [facility] [place] [address] [place] Glucose [Mass/Vol] 82 mg/dL Normal 74-99 [facility] Comment on above: Order Comment: Lyssai men Type: BLOOD SPECIMENOrdering Facility: [facility] Address: [address] [address] Result Comment: The [place] Diabetes Association (ADA) provides guidance for cutoff [...] Standards of Medical Care in Diabetes 2016, [place] [employer]. Diabetes Care. 2016.39(Suppl 1). Performed By: #### 2 4321-2 ####[facility] [id number] [place] [address] [place] Potassium [Moles/Vol] 3.9 mmol/L Normal 3.7-5.1 [facility] Comment on above: Order Comment: Speci men Type: BLOOD SPECIMENOrdering Facility: [facility] Address: [address] [place] [address] Performed By: #### 2 4321-2 ####[facility] [id number] [place] [address] [place] Sodium [Moles/Vol] 140 mmol/L Normal 136-144 [facility]spital Comment on above: Order Comment: Speci men Type: BLOOD SPECIMENOrdering Facility: [facility] Address: [address] [place] [address] Performed By: #### 2 4321-2 ####[facility] [id number] [place] [address] [place] Urea nitrogen [Mass/Vol] 8 mg/dL Normal 7-21 [facility] Comment on above: Order Comment: Speci men Type: BLOOD SPECIMENOrdering Facility: [facility] Address: [address] [address] Performed By: #### 2 4321-2 ####[facility] LABORATORYIA [id number] [place] [address] [place] CASE MGT INIT ASSESon 2022 CASE MGT INIT ASSES Normal [facility] CBC panel Auto (Bld)on 11-06 Erythrocyte distribution width (RBC) [Ratio] 13.3 % Normal 11.5-15.0 [facility] Comment on above: Order Comment: Speci men Type: BLOOD SPECIMENOrdering Facility: [facility] Address: [address] [place] [address] Performed By: #### 5 8410-2 ####[facility] LABORATORYCLIA [id number] [address] [place] Hematocrit (Bld) [Volume fraction] 34.5 % Low 36.0-46.0 [facility] Comment on above: Order Comment: Speci men Type: BLOOD SPECIMENOrdering Facility: [facility] Address: [address] [place] [address] Performed By: #### 5 8410-2 ####[facility] [id number] [place] [address] [place] Hemoglobin (Bld) [Mass/Vol] 11.4 g/dL Low 11.5-15.5 [facility] Comment on above: Order Comment: Speci men Type: BLOOD SPECIMENOrdering Facility: [facility] Address: [address] [place] [address] Performed By: #### 5 8410-2 ####[facility] LABORATORYIA [id number] [place] [address] [place] MCH (RBC) [Entitic mass] 30.8 pg Normal 26.0-34.0 [facility] Comment on above: Order Comment: Speci men Type: BLOOD SPECIMENOrdering Facility: [facility] Address: [address] [place] [address] Performed By: #### 5 8410-2 ####[facility] LABORATORYIA [id number] [address] [place] MCHC (RBC) [Mass/Vol] 33.0 g/dL Normal 30.5-36.0 [facility] Comment on above: Order Comment: Speci men Type: BLOOD SPECIMENOrdering Facility: [facility] Address: [address] [address] Performed By: #### 5 8410-2 ####[facility] [id number] [address] [place] MCV (RBC) [Entitic vol] 93.2 fL Normal 80.0-100.0 [facility] Comment on above: Order Comment: Speci men Type: BLOOD SPECIMENOrdering Facility: [facility] Address: [address] [address] Performed By: #### 5 8410-2 ####[facility] [id number] [address] [place] Nucleated RBC (Bld) [#/Vol] 10*3/uL Normal <0.01 [facility] Comment on above: Order Comment: Speci men Type: BLOOD SPECIMENOrdering Facility: [facility] Address: [address] [address] Performed By: #### 5 8410-2 ####[facility] [id number] [address] [place] Platelet mean volume (Bld) [Entitic vol] 11.3 fL Normal 9.0-12.7 [facility] Comment on above: Order Comment: Speci men Type: BLOOD SPECIMENOrdering Facility: [facility] Address: [address] Performed By: #### 5 8410-2 ####[facility] [id number] [address] [place] Platelets (Bld) [#/Vol] 225 10*3/uL Normal 150-400 [facility] Comment on above: Order Comment: Speci men Type: BLOOD SPECIMENOrdering Facility: [facility] Address: [address] [address] Performed By: #### 5 8410-2 ####[facility] LABORATORYIA [id number] [place] [address] [place] RBC (Bld) [#/Vol] 3.70 10*6/uL Low 3.90-5.20 [facility] Comment on above: Order Comment: Speci men Type: BLOOD SPECIMENOrdering Facility: [facility] Address: [address] [address] Performed By: #### 5 8410-2 ####[facility] LABORATORYCLIA [id number] [place] [address] [place] WBC (Bld) [#/Vol] 3.98 10*3/uL Normal 3.70-11.00 [facility] Comment on above: Order Comment: Speci men Type: BLOOD SPECIMENOrdering Facility: [facility] Address: [address] [address] Performed By: #### 5 8410-2 ####[facility] LABORATORYIA [id number] [place] [address] [place] CNPNon 11-06-2022 CNPN Normal [facility] CONSULT PROGon 11-06-2022 CONSULT PROG Normal [facility] CONS[facility]OG [facility] NM HEPATOBILIARY W EF AND/OR RXon 11-06-2022 NM HEPATOBILIARY W EF AND/OR RX Normal [facility] CBC W Auto Differential pane l (Bld)on 11-05-2022 Basophils (Bld) [#/Vol] 0.03 10*3/uL Normal <0.11 [facility] Comment on above: Order Comment: Speci men Type: BLOOD SPECIMENOrdering Facility: [facility] Address: [address] [address] Performed By: #### 5 7021-8 ####[facility] LABORATORYIA [id number] [address] [place] Basophils/100 WBC (Bld) 0.6 % Normal [facility] Comment on above: Order Comment: Speci men Type: BLOOD SPECIMENOrdering Facility: [facility] Address: [address] [address] Performed By: #### 5 7021-8 ####[facility] LABORATORYIA [id number] [facility] [place] [address] [place] Differential cell count method Nom (Bld) Auto Normal [facility] Comment on above: Order Comment: Speci men Type: BLOOD SPECIMENOrdering Facility: [facility] Address: [address] [address] Performed By: #### 5 7021-8 ####[facility] LABORATORYCLIA [id number] [facility] [place] [address] [place] Eosinophils (Bld) [#/Vol] 0.08 10*3/uL Normal <0.46 [facility] Comment on above: Order Comment: Speci men Type: BLOOD SPECIMENOrdering Facility: [facility] Address: [address] [place] [address] Performed By: #### 5 7021-8 ####[facility] [id number] [place] [address] [place] Eosinophils/100 WBC (Bld) 1.5 % Normal [facility] Comment on above: Order Comment: Speci men Type: BLOOD SPECIMENOrdering Facility: [facility] Address: [address] [place] [address] Performed By: #### 5 7021-8 ####[facility] [id number] [address] [place] Erythrocyte distribution width (RBC) [Ratio] 13.3 % Normal 11.5-15.0 [facility] Comment on above: Order Comment: Speci men Type: BLOOD SPECIMENOrdering Facility: [facility] Address: [address] [address] Performed By: #### 5 7021-8 ####[facility] LABORATORYIA [id number] [address] [place] Hematocrit (Bld) [Volume fraction] 40.5 % Normal 36.0-46.0 [facility] Comment on above: Order Comment: Speci men Type: BLOOD SPECIMENOrdering Facility: [facility] Address: [address] [address] Performed By: #### 5 7021-8 ####[facility] LABORATORYCLIA [id number] [place] [address] [place] Hemoglobin (Bld) [Mass/Vol] 13.3 g/dL Normal 11.5-15.5 [facility] Comment on above: Order Comment: Speci men Type: BLOOD SPECIMENOrdering Facility: [facility] Address: [address] [address] Performed By: #### 5 7021-8 ####[facility] LABORATORYCLIA [id number] [place] [address] [place] Immature granulocytes (Bld) [#/Vol] 10*3/uL Normal <0.10 [facility] Comment on above: Order Comment: Speci men Type: BLOOD SPECIMENOrdering Facility: [facility] Address: [address] [address] Performed By: #### 5 7021-8 ####[facility] LABORATORYIA [id number] [place] [address] [place] Immature granulocytes/100 WBC (Bld) 0.4 % Normal [facility] Comment on above: Order Comment: Speci men Type: BLOOD SPECIMENOrdering Facility: [facility] Address: [address] [address] Performed By: #### 5 7021-8 ####[facility] LABORATORYCLIA [id number] [facility] [place] [address] [place] Lymphocytes (Bld) [#/Vol] 2.53 10*3/uL Normal 1.00-4.00 [facility] Comment on above: Order Comment: Speci men Type: BLOOD SPECIMENOrdering Facility: [facility] Address: [address] [address] Performed By: #### 5 7021-8 ####[facility] LABORATORYCLIA [id number] [place] [address] [place] Lymphocytes/100 WBC (Bld) 48.5 % Normal [facility] Comment on above: Order Comment: Speci men Type: BLOOD SPECIMENOrdering Facility: [facility] Address: [address] [address] Performed By: #### 5 7021-8 ####[facility] LABORATORYIA [id number] [address] [place] MCH (RBC) [Entitic mass] 30.4 pg Normal 26.0-34.0 [facility] Comment on above: Order Comment: Speci men Type: BLOOD SPECIMENOrdering Facility: [facility] Address: [address] [address] Performed By: #### 5 7021-8 ####[facility] [id number] [address] [place] MCHC (RBC) [Mass/Vol] 32.8 g/dL Normal 30.5-36.0 [facility] Comment on above: Order Comment: Speci men Type: BLOOD SPECIMENOrdering Facility: [facility] Address: [address] [address] Performed By: #### 5 7021-8 ####[facility] [id number] [address] [place] MCV (RBC) [Entitic vol] 92.7 fL Normal 80.0-100.0 [facility] Comment on above: Order Comment: Speci men Type: BLOOD SPECIMENOrdering Facility: [facility] Address: [address] [address] Performed By: #### 5 7021-8 ####[facility] LABORATORYIA [id number] [address] [place] Monocytes (Bld) [#/Vol] 0.30 10*3/uL Normal <0.87 [facility] Comment on above: Order Comment: Speci men Type: BLOOD SPECIMENOrdering Facility: [facility] Address: [address] [address] Performed By: #### 5 7021-8 ####[facility] LABORATORYCLIA [id number] [place] [address] [place] Monocytes/100 WBC (Bld) 5.7 % Normal [facility] Comment on above: Order Comment: Speci men Type: BLOOD SPECIMENOrdering Facility: [facility] Address: [address] [address] Performed By: #### 5 7021-8 ####[facility] LABORATORYCLIA [id number] [place] [address] [place] Neutrophils (Bld) [#/Vol] 2.26 10*3/uL Normal 1.45-7.50 [facility] Comment on above: Order Comment: Speci men Type: BLOOD SPECIMENOrdering Facility: [facility] Address: [address] [place] [address] Performed By: #### 5 7021-8 ####[facility] [id number] [place] [address] [place] Neutrophils/100 WBC (Bld) 43.3 % Normal [facility] Comment on above: Order Comment: Speci men Type: BLOOD SPECIMENOrdering Facility: [facility] Address: [address] [place] [address] Performed By: #### 5 7021-8 ####[facility] [id number] [place] [address] [place] Nucleated RBC (Bld) [#/Vol] 10*3/uL Normal <0.01 [facility] Comment on above: Order Comment: Speci men Type: BLOOD SPECIMENOrdering Facility: [facility] Address: [address] [place] [address] Performed By: #### 5 7021-8 ####[facility] [id number] [place] [address] [place] Nucleated RBC/100 WBC (Bld) [Ratio] 0.0 /100 WBC Normal [facility] Comment on above: Order Comment: Speci men Type: BLOOD SPECIMENOrdering Facility: [facility] Address: [address] Performed By: #### 5 7021-8 ####[facility] LABORATORYIA [id number] [place] [address] [place] Platelet mean volume (Bld) [Entitic vol] 11.4 fL Normal 9.0-12.7 [facility] Comment on above: Order Comment: Speci men Type: BLOOD SPECIMENOrdering Facility: [facility] Address: [address] [address] Performed By: #### 5 7021-8 ####[facility] LABORATORYIA [id number] [place] [address] [place] Platelets (Bld) [#/Vol] 207 10*3/uL Normal 150-400 [facility] Comment on above: Order Comment: Speci men Type: BLOOD SPECIMENOrdering Facility: [facility] Address: [address] [address] Performed By: #### 5 7021-8 ####[facility] [id number] [place] [address] [place] RBC (Bld) [#/Vol] 4.37 10*6/uL Normal 3.90-5.20 [facility] Comment on above: Order Comment: Speci men Type: BLOOD SPECIMENOrdering Facility: [facility] Address: [address] [address] Performed By: #### 5 7021-8 ####[facility] [id number] [place] [address] [place] WBC (Bld) [#/Vol] 5.22 10*3/uL Normal 3.70-11.00 [facility] Comment on above: Order Comment: Speci men Type: BLOOD SPECIMENOrdering Facility: [facility] Address: [address] [address] Performed By: #### 5 7021-8 ####[facility] LABORATORYIA [id number] [place] [id number] [place] CNPNon 11-05-2022 CNPN Normal [facility] CONSULTon 11-05-2022 CONSULT Normal [facility] CONSULT Normal [facility] Comprehensive metabolic 2000 panelon 11-05-2022 Albumin [Mass/Vol] 4.2 g/dL Normal 3.9-4.9 [facility]ital Comment on above: Order Comment: Speci men Type: BLOOD SPECIMENOrdering Facility: [facility] Address: [address] [place] [address] Performed By: #### 2 4323-8, 3040-3 ####[facility] LABORATORYCLIA [id number] [place] [address] [place] ALP [Catalytic activity/Vol] 71 U/L Normal 34-123 [facility] Comment on above: Order Comment: Speci men Type: BLOOD SPECIMENOrdering Facility: [facility] Address: [address] [place] [address] Performed By: #### 2 4323-8, 3040-3 ####[facility] LABORATORYCLIA [id number] [place] [address] [place] ALT [Catalytic activity/Vol] 15 U/L Normal 7-38 [facility] Comment on above: Order Comment: Speci men Type: BLOOD SPECIMENOrdering Facility: [facility] Address: [address] [place] [address] Performed By: #### 2 4323-8, 3040-3 ####[facility] LABORATORYCLIA [id number] [facility] [place] [address] [place] Anion gap [Moles/Vol] 12 mmol/L Normal 9-18 [facility] Comment on above: Order Comment: Speci men Type: BLOOD SPECIMENOrdering Facility: [facility] Address: [address] [place] [address] Performed By: #### 2 4323-8, 3040-3 ####[facility] LABORATORYCLIA [id number] [place] [address] [place] AST [Catalytic activity/Vol] 26 U/L Normal 13-35 [facility] Comment on above: Order Comment: Speci men Type: BLOOD SPECIMENOrdering Facility: [facility] Address: [address] [address] Performed By: #### 2 4323-8, 3039-3 ####[facility] LABORATORYCLIA [id number] [place] [address] [place] Bilirubin [Mass/Vol] 0.4 mg/dL Normal 0.2-1.3 [facility] Comment on above: Order Comment: Speci men Type: BLOOD SPECIMENOrdering Facility: [facility] Address: [address] Performed By: #### 2 4323-8, 3 ####[facility] LABORATORYCLIA [id number] [place] [address] [place] Calcium [Mass/Vol] 8.6 mg/dL Normal 8.5-10.2 [facility] Comment on above: Order Comment: Speci men Type: BLOOD SPECIMENOrdering Facility: [facility] Address: [address] Performed By: #### 2 4323-8, 3 ####[facility] LABORATORYCLIA [id number] [place] [address] [place] Chloride [Moles/Vol] 107 mmol/L High 97-105 [facility] Comment on above: Order Comment: Speci men Type: BLOOD SPECIMENOrdering Facility: [facility] Address: [address] Performed By: #### 2 4323-8, 3039-3 ####[facility] LABORATORYCLIA [id number] [place] [address] [place] CO2 [Moles/Vol] 22 mmol/L Normal 22-30 [facility] Comment on above: Order Comment: Speci men Type: BLOOD SPECIMENOrdering Facility: [facility] Address: [address] Performed By: #### 2 4323-8, 3039-3 ####[facility]ENTERCLIA [id number] [facility] [place] [address] [place] Creatinine [Mass/Vol] 0.87 mg/dL Normal 0.58-0.96 [facility] Comment on above: Order Comment: Geraldo marrero Type: BLOOD SPECIMENOrdering Facility: [facility] Address: [address] [address] Performed By: #### 2 4323-8, 0-3 ####[facility] LABORATORYIA [id number] [place] [address] [place] [facility] Creatinine and Glomerular filtration rate.predicted panel (S/P/Bld) 90 mL/min/1.73m??? Normal >=60 [facility] Comment on above: Order Comment: Geraldo [facility] Type: BLOOD SPECIMENOrdering Facility: [facility] Address: [address] [place] [address] Result Comment: Jessica mated Glomerular Filtration Rate [...] GFR. Performed By: #### 2 4323-8, 3039-3 ####[facility] LABORATORYIA [id number] [place] [address] [place] Glucose [Mass/Vol] 87 mg/dL Normal 74-99 [facility] Comment on above: Order Comment: Geraldo marrero Type: BLOOD SPECIMENOrdering Facility: [facility] Address: [address] [place], [place] [address] Result Comment: The [place] [employer] (ADA) provides guidance for cutoff [...] Standards of Medical Care in Diabetes 2016, [place] [employer]. Diabetes Care. 2016.39(Suppl 1). Performed By: #### 2 4323-8, 0-3 ####[facility] [id number] [place] [address] [place] Potassium [Moles/Vol] 3.5 mmol/L Low 3.7-5.1 [facility] Comment on above: Order Comment: Speci men Type: BLOOD SPECIMENOrdering Facility: [facility] Address: [address] [place] [address] Performed By: #### 2 4323-8, 3039-3 ####[facility] [id number] [place] [address] [place] Protein [Mass/Vol] 6.6 g/dL Normal 6.3-8.0 [facility] Comment on above: Order Comment: Speci men Type: BLOOD SPECIMENOrdering Facility: [facility] Address: [address] [place] [address] Performed By: #### 2 4323-8, 3039-3 ####[facility] [id number] [place] [address] [place] Sodium [Moles/Vol] 141 mmol/L Normal 136-144 [facility] Comment on above: Order Comment: Speci men Type: BLOOD SPECIMENOrdering Facility: [facility] Address: [address] [address] Performed By: #### 2 4323-8, 3039-3 ####[facility] [id number] [place] [address] [place] Urea nitrogen [Mass/Vol] 9 mg/dL Normal 7-21 [facility] Comment on above: Order Comment: Speci men Type: BLOOD SPECIMENOrdering Facility: [facility] Address: [address] [place] [address] Performed By: #### 2 4323-8, 3040-3 ####[facility] LABORATORYIA [id number] [facility] [place] [address] [place] ECG COMPLETEon 11-05-2022 ECG COMPLETE [facility] NOTEon 11-05-2022 ED NOTE HNO ID: [id number] Author: Joanne Mario RN Service: ? Author Type: Registered Nurse Type: ED Notes Filed: 11/05/2022 1:56 PM Note Text: Attempt to call report, Nurse taking patient is ROHIT. Will return call when nurse available. Normal [facility] ED NOTE HNO ID: [id number] Author: Joanne Mario RN Service: ? Author Type: Registered Nurse Type: ED Notes Filed: 11/05/2022 1:28 PM Note Text: Patient refused all daily meds but reglan due to nausea. Normal [facility] ED PROV NOTEon 11-05-2022 ED PROV NOTE Normal [facility] HISTORY PHYSICALon HISTORY PHYSICAL Normal [facility] pital Lipase [facility] 11-06-19 Lipase [Catalytic activity/Vol] 38 U/L Normal 16-61 [facility] Comment on above: Order Comment: Speci men Type: BLOOD SPECIMENOrdering Facility: [facility] Address: [address] [place] [address] Performed By: #### 2 4323-8, 3040-3 ####[facility] LABORATORYIA [id number] [facility] [place] [address] [place] NURSING PROGon 11-05-2022 NURSING PROG Normal [facility] XR ABD 2V SUPINE W UPR/DECUB /CTLon 11-05-2022 XR ABD 2V SUPINE W UPR/DECUB/CTL [facility] 25(OH)D3 SerPl-mCncon 2022 25-hydroxyvitamin D3 [Mass/Vol] 29.0 ng/mL Low 31.0-80.0 [facility] Comment on above: Order Comment: Speci men Type: BLOOD SPECIMENOrdering Facility: [facility] Address: [address] [place] [address] Result Comment: Clas sification of 25 [place] Vitamin D status:Deficiency/Insufficiency: < or = 30 ng/ml.Sufficiency/Optimal Levels: 31-80 ng/mLToxicity: > 100 ng/mL.Test performed by chemiluminescent immunoassay. Performed By: #### 1 989-3 ####[facility] LABCLIA [id number] [place] [address] [place] Amylase SerPl-cCncon 023 Amylase [Catalytic activity/Vol] 40 U/L Normal 30-104 [facility] Comment on above: Order Comment: Speci men Type: BLOOD SPECIMENOrdering Facility: [facility] Address: [address] [place] [address] Performed By: #### 1 798-8, 2731-8, 2284-8, 2132-9 ####[facility] LABCLIA [id number] [place] [address] [place] CBC panel Auto (Bld)on 11-04 Erythrocyte distribution width (RBC) [Ratio] 13.2 % Normal 11.5-15.0 [facility] Comment on above: Order Comment: Speci men Type: BLOOD SPECIMENOrdering Facility: [facility] Address: [address] [place] [address] Performed By: #### 5 8410-2 ####[facility] LABIA [id number] [place] [address] [place] Hematocrit (Bld) [Volume fraction] 40.5 % Normal 36.0-46.0 [facility] Comment on above: Order Comment: Speci men Type: BLOOD SPECIMENOrdering Facility: [facility] Address: [address] [place] [address] Performed By: #### 5 8410-2 ####[facility] LABCLIA [id number] [place] [address] [place] Hemoglobin (Bld) [Mass/Vol] 13.6 g/dL Normal 11.5-15.5 [facility] Comment on above: Order Comment: Speci men Type: BLOOD SPECIMENOrdering Facility: [facility] Address: [address] [place], [place] [address] Performed By: #### 5 8410-2 ####[facility] LABCLIA [id number] [address] MCH (RBC) [Entitic mass] 30.7 pg Normal 26.0-34.0 [facility] Comment on above: Order Comment: Speci men Type: BLOOD SPECIMENOrdering Facility: [facility] Address: [address] [place], [place] [address] Performed By: #### 5 8410-2 ####[facility] LABCLIA [id number] [address] MCHC (RBC) [Mass/Vol] 33.6 g/dL Normal 30.5-36.0 [facility] Comment on above: Order Comment: Speci men Type: BLOOD SPECIMENOrdering Facility: [facility] Address: [address] [place], [place] [address] Performed By: #### 5 8410-2 ####[facility] LABIA [id number] [address] STATES OF [facility] MCV (RBC) [Entitic vol] 91.4 fL Normal 80.0-100.0 [facility] Comment on above: Order Comment: Speci men Type: BLOOD SPECIMENOrdering Facility: [facility] Address: [address] [place], [place] [address] Performed By: #### 5 8410-2 ####[facility] LABCLIA [id number] [address] [place] Nucleated RBC (Bld) [#/Vol] 10*3/uL Normal <0.01 [facility] Comment on above: Order Comment: Speci men Type: BLOOD SPECIMENOrdering Facility: [facility] Address: [address] Performed By: #### 5 8410-2 ####[facility] LABIA [id number] [place] [address] [place] Platelet mean volume (Bld) [Entitic vol] 12.1 fL Normal 9.0-12.7 [facility] Comment on above: Order Comment: Speci men Type: BLOOD SPECIMENOrdering Facility: [facility] Address: [address] [place], [place] [address] Performed By: #### 5 8410-2 ####[facility] LABIA [id number] [place] [address] [place] Platelets (Bld) [#/Vol] 313 10*3/uL Normal 150-400 [facility] Comment on above: Order Comment: Speci men Type: BLOOD SPECIMENOrdering Facility: [facility] Address: [address] [place], [place] [address] Performed By: #### 5 8410-2 ####[facility] LABIA [id number] [place] [address] [place] RBC (Bld) [#/Vol] 4.43 10*6/uL Normal 3.90-5.20 [facility] Comment on above: Order Comment: Speci men Type: BLOOD SPECIMENOrdering Facility: [facility] Address: [address] [place] [address] Performed By: #### 5 8410-2 ####[facility] LABIA [id number] [place] [address] [place] WBC (Bld) [#/Vol] 6.69 10*3/uL Normal 3.70-11.00 [facility] Comment on above: Order Comment: Speci men Type: BLOOD SPECIMENOrdering Facility: [facility] Address: [address] [place], [place] [address] Performed By: #### 5 8410-2 ####[facility] LABCLIA [id number] [place] [address] [place] CNCOon 11-04-2022 CNCO Letter Text Normal [facility] CNOVon 11-04-2022 CNOV Normal [facility] Comprehensive metabolic 2000 panelon 11-04-2022 Albumin [Mass/Vol] 4.3 g/dL Normal 3.9-4.9 [facility] Comment on above: Order Comment: Speci men Type: BLOOD SPECIMENOrdering Facility: [facility] Address: [address] Performed By: #### 2 4323-8, 78338-4, 3040-3, 6-4 ####[facility] LABIA [id number] [place] [address] [place] ALP [Catalytic activity/Vol] 69 U/L Normal 34-123 [facility] Comment on above: Order Comment: Speci men Type: BLOOD SPECIMENOrdering Facility: [facility] Address: [address] [place] [address] Performed By: #### 2 4323-8, 71897-0, 3040-3, 6-4 ####[facility] LABIA [id number] [place] [address] [place] ALT [Catalytic activity/Vol] 16 U/L Normal 7-38 [facility] Comment on above: Order Comment: Speci men Type: BLOOD SPECIMENOrdering Facility: [facility] Address: [address] Performed By: #### 2 4323-8, 45581-8, 3040-3, 6-4 ####[facility] LABCLIA [id number] [place] [address] [place] Anion gap [Moles/Vol] 13 mmol/L Normal 9-18 [facility] Comment on above: Order Comment: Speci men Type: BLOOD SPECIMENOrdering Facility: [facility] Address: [address] [place] [address] Performed By: #### 2 4323-8, 17457-8, 3039-3, 2275-4 ####[facility] LABCLIA [id number] [place] [address] [place] AST [Catalytic activity/Vol] 25 U/L Normal 13-35 [facility] Comment on above: Order Comment: Speci men Type: BLOOD SPECIMENOrdering Facility: [facility] Address: [address] [place] [address] Performed By: #### 2 4323-8, 22144-3, 3039-3, 2275-4 ####[facility] LABCLIA [id number] [place] [address] [place] Bilirubin [Mass/Vol] 0.3 mg/dL Normal 0.2-1.3 [facility] Comment on above: Order Comment: Speci men Type: BLOOD SPECIMENOrdering Facility: [facility] Address: [address] [place] [address] Performed By: #### 2 4323-8, 17229-1, 3039-3, 2275-4 ####[facility] LABCLIA [id number] [place] [address] [place] Calcium [Mass/Vol] 9.1 mg/dL Normal 8.5-10.2 [facility] Comment on above: Order Comment: Speci men Type: BLOOD SPECIMENOrdering Facility: [facility] Address: [address] [place] [address] Performed By: #### 2 4323-8, 90328-5, 3039-3, 2275-4 ####[facility] LABCLIA [id number] [place] [address] [place] Chloride [Moles/Vol] 105 mmol/L Normal 97-105 [facility] Comment on above: Order Comment: Speci men Type: BLOOD SPECIMENOrdering Facility: [facility] Address: [address] [place] [address] Performed By: #### 2 4323-8, 60537-3, 3040-3, 2275-4 ####[facility] LABIA [id number] [place] [address] [place] CO2 [Moles/Vol] 19 mmol/L Low 22-30 [facility] Comment on above: Order Comment: Speci men Type: BLOOD SPECIMENOrdering Facility: [facility] Address: [address] [place] [address] Performed By: #### 2 4323-8, 95442-3, 0-3, 2275-4 ####[facility] [id number] [place] [address] [place] Creatinine [Mass/Vol] 0.77 mg/dL Normal 0.58-0.96 [facility] Comment on above: Order Comment: Speci men Type: BLOOD SPECIMENOrdering Facility: [facility] Address: [address] [place] [address] Performed By: #### 2 4323-8, 69594-1, 0-3, 2275-4 ####[facility] [id number] [place] [address] [place] Creatinine and Glomerular filtration rate.predicted panel (S/P/Bld) 105 mL/min/1.73m??? Normal >=60 [facility] Comment on above: Order Comment: Speci men Type: BLOOD SPECIMENOrdering Facility: [facility] Address: [address] [place] [address] Result Comment: Jessica mated Glomerular Filtration Rate [...] actual GFR. Performed By: #### 2 4323-8, 35095-3, 0-3, 2275-4 ####[facility] LABCLIA [id number] [address] [address] [place] Glucose [Mass/Vol] 224 mg/dL High 74-99 [facility] Comment on above: Order Comment: Geraldo marrero Type: BLOOD SPECIMENOrdering Facility: [facility] Address: [address] [place] [address] Result Comment: The [place] [employer] (ADA) provides guidance for cutoff [...] Standards of Medical Care in Diabetes 2016, [place] [employer]. Diabetes Care. 2016.39(Suppl 1). Performed By: #### 2 4323-8, 63241-5, 3039-3, 2275-4 ####[facility] LABCLIA [id number] [address] [address] [place] Potassium [Moles/Vol] 3.7 mmol/L Normal 3.7-5.1 [facility] Comment on above: Order Comment: Geraldo marrero Type: BLOOD SPECIMENOrdering Facility: [facility] Address: [address] [place] [address] Performed By: #### 2 4323-8, 89442-4, 3039-3, 2275-4 ####[facility] LABCLIA [id number] [address] [address] [place] Protein [Mass/Vol] 6.9 g/dL Normal 6.3-8.0 [facility] Comment on above: Order Comment: Speci men Type: BLOOD SPECIMENOrdering Facility: [facility] Address: [address] [place] [address] Performed By: #### 2 4323-8, 97332-0, 0-3, 2275-4 ####[facility] LABCLIA [id number] [place] [address] [place] Sodium [Moles/Vol] 137 mmol/L Normal 136-144 [facility] Comment on above: Order Comment: Speci men Type: BLOOD SPECIMENOrdering Facility: [facility] Address: [address] [place] [address] Performed By: #### 2 4323-8, 78724-8, 0-3, 4 ####[facility] LABCLIA [id number] [place] [address] [place] Urea nitrogen [Mass/Vol] 9 mg/dL Normal 7-21 [facility] Comment on above: Order Comment: Speci men Type: BLOOD SPECIMENOrdering Facility: [facility] Address: [address] [place] [address] Performed By: #### 2 4323-8, 93297-3, 0-3, 4 ####[facility] LABCLIA [id number] [place] [address] [place] Ferritin SerPl-mCncon 2022 Ferritin [Mass/Vol] 13.2 ng/mL Low 14.7-205.1 [facility] Comment on above: Order Comment: Speci men Type: BLOOD SPECIMENOrdering Facility: [facility] Address: [address] Performed By: #### 2 4323-8, 66932-0, 3039-3, 2275-4 ####[facility] LABCLIA [id number] [place] [address] [place] Folate SerPl-mCncon 09-20-20 23 Folate [Mass/Vol] 9.3 ng/mL Normal >4.7 [facility] Comment on above: Order Comment: Speci men Type: BLOOD SPECIMENOrdering Facility: [facility] Address: [address] [place] [address] Performed By: #### 1 798-8, 2731-8, 2284-8, 2132-9 ####[facility] LABCLIA [id number] [place] [address] [place] Iron and Iron binding capaci panelon 11-04-2022 Iron [Mass/Vol] 52 ug/dL Normal 41-186 [facility] Comment on above: Order Comment: Speci men Type: BLOOD SPECIMENOrdering Facility: [facility] Address: [address] [place] [address] Performed By: #### 2 4323-8, 65409-3, 3040-3, 6-4 ####[facility] LABCLIA [id number] [place] [address] [place] Iron binding capacity [Mass/Vol] 348 ug/dL Normal 232-386 [facility] Comment on above: Order Comment: Speci men Type: BLOOD SPECIMENOrdering Facility: [facility] Address: [address] [place] [address] Performed By: #### 2 4323-8, 33153-8, 3040-3, 6-4 ####[facility] LABCLIA [id number] [place] [address] [place] Iron/TIBC [Molar ratio] 14.9 % Low 15.0-57.0 [facility] Comment on above: Order Comment: Speci men Type: BLOOD SPECIMENOrdering Facility: [facility] Address: [address] [place] [address] Performed By: #### 2 4323-8, 82936-5, 3040-3, 2276-4 ####[facility] LABCLIA [id number] [place] [address] [place] Lipase SerPl-cCncon 11-05-19 23 Lipase [Catalytic activity/Vol] 35 U/L Normal 16-61 [facility] Comment on above: Order Comment: Speci men Type: BLOOD SPECIMENOrdering Facility: [facility] Address: [address] [place] [address] Performed By: #### 2 4323-8, 16734-1, 3040-3, 2276-4 ####[facility] [id number] [place] [address] [place] PTH-Intact SerPl-mCncon 10-17 Parathyrin.intact [Mass/Vol] 27 pg/mL Normal 15-65 [facility] Comment on above: Order Comment: Speci men Type: BLOOD SPECIMENOrdering Facility: [facility] Address: [address] [place] [address] Performed By: #### 1 798-8, 2731-8, 2284-8, 2132-9 ####[facility] [id number] [place] [address] [place] US ABD RIGHT UPPER QUADRANTo n 11-04-2022 US ABD RIGHT UPPER QUADRANT Normal [facility] VITAMIN B1 (THIAMINE), WHOLE BLOODon 11-04-2022 Thiamine (Bld) [Moles/Vol] 165.0 nmol/L Normal 84.3-213.3 [facility] Comment on above: Order Comment: Speci men Type: BLOOD SPECIMENOrdering Facility: [facility] Address: [address] [place], [place] [address] Result Comment: This assay measures the concentration of thiamine diphosphate (TDP), the primary active form of vitamin B1. Approximately 90 percent of vitamin B1 present in whole blood is TDP. Thiamine and thiamine monophosphate, which comprise the remaining 10 percent, are not measured.This test was developed and its performance characteristics determined by [facility]'s Lucie Mccaincounts include 234 beds at the [facility] Pathology and Laboratory Medicine [facility] ([facility]). It has not been cleared or approved by the FDA. [facility] is regulated under CLIA as qualified to perform high-complexity testing. This test is used for clinical purposes. It should not be regarded as investigational or for research. Performed By: #### B 1WB ####[facility] [id number] [place] [address] [place] Vit A SerPl-mCncon 3 Retinol [Mass/Vol] 0.44 mg/L Normal 0.30-1.20 [facility] Comment on above: Order Comment: Speci men Type: BLOOD SPECIMENOrdering Facility: [facility] Address: [address] [place] [address] Result Comment: This test was developed and its performance characteristics determined by [facility]'s Lucie Faustino [facility] Pathology and Laboratory Medicine [facility] ([facility]). It has not been cleared or approved by the FDA. [facility] is regulated under CLIA as qualified to perform high-complexity testing. This test is used for clinical purposes. It should not be regarded as investigational or for research. Performed By: #### 2 923-1 ####[facility] [id number] [place] [address] [place] Vit B12 SerPl-mCncon 023 Cobalamin (Vitamin B12) [Mass/Vol] 1018 pg/mL Normal 232-1245 [facility] Comment on above: Order Comment: Speci men Type: BLOOD SPECIMENOrdering Facility: [facility] Address: [address] [place] [address] Performed By: #### 1 798-8, 2731-8, 2284-8, 2132-9 ####[facility] [id number] [place] [address] [place] Zinc SerPl-mCncon 11-04-2022 Zinc [Mass/Vol] 51 ug/dL Low 60-120 [facility] Comment on above: Order Comment: Speci men Type: BLOOD SPECIMENOrdering Facility: [facility] Address: [address] [place], [place] [address] [address] Result Comment: This test was developed and its performance characteristics determined by [facility]'s Lucie Shetty Pathology [facility] Laboratory [facility] ([facility]). It has not been cleared or approved by the FDA. -[facility] is regulated under CLIA as qualified to perform high-complexity testing. This test is used for clinical purposes. It should not be regarded as investigational or for research. Performed By: #### 5 763-8 ####[facility] LABCLIA [id number] [facility] [id number] [address] [place] Ambulatory Visit Summaryon 0 11-03-2022 Ambulatory Visit Summary Normal [address] [place] [address]- \.br\ Medications\.br\ What How Much When Why [...] Metabolic syndrome\.br\ PCOS- polycystic ovary syndrome\.br\ \.br\ [facility] Office/Clini c Noteon 11-03-2022 Family Medicine Office/Clinic Note Normal [facility] Comment on above: Result Comment: Elec tronically Signed By: Jaquan Paula\.br\Date and Time Signed: 11/03/22 11:43 EDT Provider Letteron 11-03-2022 Provider Letter Normal [facility] CBCon 11-02-2022 ABSOLUTE BAS 0.0 10*3/uL Normal 0.0-0.2 [facility] Comment on above: Performed By: #### A CBC, LIPA2, CMPF #### Testing performed at [address] [address] ABSOLUTE EOS 0.0 10*3/uL Normal 0.0-0.7 [facility] Comment on above: Performed By: #### A CBC, LIPA2, CMPF #### Testing performed at [address] [address] ABSOLUTE NEUTROPHIL COUNT 3.6 10*3/uL Normal 1.4-6.5 [facility] Comment on above: Performed By: #### A CBC, LIPA2, CMPF #### Testing performed at [address] [address] Basophils/100 WBC (Bld) 0.3 % Normal 0.0-2.0 [facility] Comment on above: Performed By: #### A CBC, LIPA2, CMPF #### Testing performed at [address] [place] [address] DTYPE AUTO DIFF Normal [facility] Comment on above: Performed By: #### A CBC, LIPA2, CMPF #### Testing performed at [address] [place] [address] Eosinophils/100 WBC (Bld) 0.1 % Normal 0.0-11.0 [facility] Comment on above: Performed By: #### A CBC, LIPA2, CMPF #### Testing performed at [address] [address] Lymphocytes (Bld) [#/Vol] 0.8 10*3/uL Low 1.2-3.4 [facility] Comment on above: Performed By: #### A CBC, LIPA2, CMPF #### Testing performed at [address] [address] Lymphocytes/100 WBC (Bld) 17.9 % Low 20.0-55.0 [facility] Comment on above: Performed By: #### A CBC, LIPA2, CMPF #### Testing performed at [address] [address] Monocytes (Bld) [#/Vol] 0.1 10*3/uL Normal 0.0-0.7 [facility] Comment on above: Performed By: #### A CBC, LIPA2, CMPF #### Testing performed at [address] [address] Monocytes/100 WBC (Bld) 2.3 % Normal 0.0-10.0 [facility] Comment on above: Performed By: #### A CBC, LIPA2, CMPF #### Testing performed at [address] [address] Neutrophils/100 WBC (Bld) 79.4 % High 37.0-75.0 [facility] Comment on above: Performed By: #### A CBC, LIPA2, CMPF #### Testing performed at [address] [place] [address] Erythrocyte distribution width (RBC) [Ratio] 14.8 % High 11.5-14.5 [facility] Comment on above: Performed By: #### A CBC, LIPA2, CMPF #### Testing performed at [address] [address] Hematocrit (Bld) [Volume fraction] 38.8 % Normal 36.0-48.0 [facility] Comment on above: Performed By: #### A CBC, LIPA2, CMPF #### Testing performed at [address] [address] Hemoglobin (Bld) [Mass/Vol] 13.0 g/dL Normal 12.0-16.0 [facility] Comment on above: Performed By: #### A CBC, LIPA2, CMPF #### Testing performed at [address] [address] MCH (RBC) [Entitic mass] 30.6 pg Normal 26.0-35.0 [facility] Comment on above: Performed By: #### A CBC, LIPA2, CMPF #### Testing performed at [address] [address] MCHC (RBC) [Mass/Vol] 33.5 g/dL Normal 27.0-37.0 [facility] Comment on above: Performed By: #### A CBC, LIPA2, CMPF #### Testing performed at [address] [address] MCV (RBC) [Entitic vol] 91.2 fL Normal 80.0-100.0 [facility] Comment on above: Performed By: #### A CBC, LIPA2, CMPF #### Testing performed at [address] [address] Platelet mean volume (Bld) [Entitic vol] 9.9 fL Normal 7.4-11.0 [facility] Comment on above: Performed By: #### A CBC, LIPA2, CMPF #### Testing performed at [address] [address] Platelets (Bld) [#/Vol] 234 10*3/uL Normal 130-400 [facility] Comment on above: Performed By: #### A CBC, LIPA2, CMPF #### Testing performed at [address] [address] RBC (Bld) [#/Vol] 4.25 10*6/uL Normal 4.0-5.4 [facility] Comment on above: Performed By: #### A CBC, LIPA2, CMPF #### Testing performed at [facility] [address] [place] [address] WBC (Bld) [#/Vol] 4.5 10*3/uL Normal 3.6-11.0 [facility] Comment on above: Performed By: #### A CBC, LIPA2, CMPF #### Testing performed at [address] [address] CBC, EDIF, PLATELETon 2022 ABSOLUTE BASOPHIL COUNT 0.0 10*3/uL 0.0 - 0.2 10*3/uL [facility] Basophils/100 WBC (Bld) 0.3 % 0.0 - 2.0 % [facility] Differential cell count method Nom (Bld) AUTO DIFF % [facility] Eosinophils (Bld) [#/Vol] 0.0 10*3/uL 0.0 - 0.7 10*3/uL [facility] Eosinophils/100 WBC (Bld) 0.1 % 0.0 - 11.0 % [facility] Erythrocyte distribution width (RBC) [Ratio] 14.8 % High 11.5 - 14.5 % [facility] Hematocrit (Bld) [Volume fraction] 38.8 % 36.0 - 48.0 % [facility] Hemoglobin (Bld) [Mass/Vol] 13.0 g/dL [facility] Interpretation and review of laboratory results Abnormal [facility] Lymphocytes (Bld) [#/Vol] 0.8 10*3/uL Low 1.2 - 3.4 10*3/uL [facility] Lymphocytes/100 WBC (Bld) 17.9 % Low 20.0 - 55.0 % [facility] MCH (RBC) [Entitic mass] 30.6 pg 26.0 - 35.0 PG [facility] MCHC (RBC) [Mass/Vol] 33.5 g/dL [facility] MCV (RBC) [Entitic vol] 91.2 fL [facility] Monocytes (Bld) [#/Vol] 0.1 10*3/uL 0.0 - 0.7 10*3/uL [facility] Monocytes/100 WBC (Bld) 2.3 % 0.0 - 10.0 % [facility] Neutrophils (Bld) [#/Vol] 3.6 10*3/uL 1.4 - 6.5 10*3/uL [facility] Neutrophils/100 WBC (Bld) 79.4 % High 37.0 - 75.0 % [facility] Platelet mean volume (Bld) [Entitic vol] 9.9 fL [facility] Platelets (Bld) [#/Vol] 234 10*3/uL 130 - 400 10*3/uL [facility] RBC (Bld) [#/Vol] 4.25 10*6/uL 4.0 - 5.4 10*6/u L [facility] WBC (Bld) [#/Vol] 4.5 10*3/uL 3.6 - 11.0 10*3/u L [facility] CMP FASTINGon 11-02-2022 A:G RATIO 1.5 RATIO Normal [facility] Comment on above: Performed By: #### A CBC, LIPA2, CMPF #### Testing performed at [address] [address] ALBUMIN 4.4 G/dl Normal 3.5-5.0 [facility] Comment on above: Performed By: #### A CBC, LIPA2, CMPF #### Testing performed at [address] [address] ALP [Catalytic activity/Vol] 87 U/L Normal 38-126 [facility] Comment on above: Performed By: #### A CBC, LIPA2, CMPF #### Testing performed at [address] [address] ALT [Catalytic activity/Vol] 22 U/L Normal <35 [facility] Comment on above: Performed By: #### A CBC, LIPA2, CMPF #### Testing performed at [address] [address] AST [Catalytic activity/Vol] 34 U/L Normal 14-36 [facility] Comment on above: Performed By: #### A CBC, LIPA2, CMPF #### Testing performed at [address] [address] Bilirubin [Mass/Vol] 0.4 mg/dL Normal 0.2-1.3 [facility] Comment on above: Performed By: #### A CBC, LIPA2, CMPF #### Testing performed at [address] [address] Calcium [Mass/Vol] 9.0 mg/dL Normal 8.4-10.2 [facility] Comment on above: Performed By: #### A CBC, LIPA2, CMPF #### Testing performed at [address] [address] Chloride [Moles/Vol] 106 mmol/L Normal 98-107 [facility] Comment on above: Result Comment: Yessy plascencia note: Triglyceride levels of 600mg/dL or higher may positively bias chloride results by approximately 2.1 mmol Performed By: #### A CBC, LIPA2, CMPF #### Testing performed at [address] [address] CO2 [Moles/Vol] 22 mmol/L Normal 22-30 [facility] Comment on above: Performed By: #### A CBC, LIPA2, CMPF #### Testing performed at [address] [address] Creatinine [Mass/Vol] 0.80 mg/dL Normal 0.70-1.20 [facility] Comment on above: Performed By: #### A CBC, LIPA2, CMPF #### Testing performed at [address] [address] EST. GFR, 106 ml/min/1.73sq.m [facility] Comment on above: Performed By: #### A CBC, LIPA2, CMPF #### Testing performed at [address] [address] EST. GFR,Non 88 ml/min/1.73sq.m [facility] Comment on above: Performed By: #### A CBC, LIPA2, CMPF #### Testing performed at [address] [address] GFR Information Average GFR for 30-39 years old = 107. Normal [facility] Comment on above: Result Comment: Director Revenue alejandra Kidney disease, GFR = <60. Kidney failure, GFR = <15. The GFR estimate is not adjusted for extreme body surface area or acute process, nor has it been validated for women or ethnic groups other than and . Performed By: #### A CBC, LIPA2, CMPF #### Testing performed at [address] [address] Glucose [Mass/Vol] 119 mg/dL High 70-100 [facility] Comment on above: Result Comment: NORMAL <100 mg/dL PREDIABETES 101-126 mg/dL DIABETES 126 mg/dL or higher Performed By: #### A CBC, LIPA2, CMPF #### Testing performed at [address] [address] Potassium [Moles/Vol] 4.2 mmol/L Normal 3.5-5.1 [facility] Comment on above: Performed By: #### A CBC, LIPA2, CMPF #### Testing performed at [address] [address] Protein [Mass/Vol] 7.3 g/dL Normal 6.3-8.2 [facility] Comment on above: Performed By: #### A CBC, LIPA2, CMPF #### Testing performed at [address] [address] Sodium [Moles/Vol] 138 mmol/L Normal 137-145 [facility] Comment on above: Performed By: #### A CBC, LIPA2, CMPF #### Testing performed at [address] [address] Urea nitrogen [Mass/Vol] 8 mg/dL Normal 7-20 [facility] Comment on above: Performed By: #### A CBC, LIPA2, CMPF #### Testing performed at [address] [address] CNPNon 11-02-2022 CNPN Normal [facility] PANE Nestor 11-02-2022 Albumin [Mass/Vol] 4.4 G/dl 3.5 - 5.0 G/dl [facility] Albumin/Globulin [Mass ratio] 1.5 {ratio} RATIO [facility] ALP [Catalytic activity/Vol] 87 U/L [facility] ALT [Catalytic activity/Vol] 22 U/L NINF [facility] AST [Catalytic activity/Vol] 34 U/L [facility] Bilirubin [Mass/Vol] 0.4 mg/dL [facility] Calcium [Mass/Vol] 9.0 mg/dL [facility] Chloride [Moles/Vol] 106 mmol/L [facility] Comment on above: Please note: Triglyc eride levels of 600mg/dL or higher may positively bias chloride results by approximately 2.1 mmol CO2 [Moles/Vol] 22 mmol/L [facility] Creatinine [Mass/Vol] 0.80 mg/dL [facility] GFR COMMENT Average GFR for 30-39 years old = 107. [facility] Comment on above: Chronic Kidney disea se, GFR = <60. Kidney failure, GFR = <15. The GFR estimate is not adjusted for extreme body surface area or acute process, nor has it been validated for women or ethnic groups other than and . GFR/1.73 sq M.predicted among blacks MDRD (S/P/Bld) [Vol rate/Area] 106 mL/min/{1.73_m2} ml/min/1.73sq.m [facility] GFR/1.73 sq M.predicted among non-blacks MDRD (S/P/Bld) [Vol rate/Area] 88 mL/min/{1.73_m2} ml/min/1.73sq.m [facility] Glucose post fast [Mass/Vol] 119 mg/dL High [facility] Comment on above: NORMAL <100 mg/dL PREDIABETES 101-126 mg/dL DIABETES 126 mg/dL or higher Interpretation and review of laboratory results Abnormal [facility] Potassium [Moles/Vol] 4.2 mmol/L [facility] Protein [Mass/Vol] 7.3 g/dL [facility] Sodium [Moles/Vol] 138 mmol/L [facility] Urea nitrogen [Mass/Vol] 8 mg/dL [facility] HCG ( test) Ql (U)o n 11-02-2022 [facility] HCG QUALITATIVE, URINEon 09- 18-2023 HCG ( test) Ql (U) Negative NEGATIVE [facility] LACTATE, BLOODon 11-02-2022 Lactate [Moles/Vol] 1.3 mmol/L 0.7 - 2.0 mmol/L [facility]BLO[facility] 11-02-2022 Lactate [Moles/Vol] 1.3 mmol/L Normal 0.7-2.0 [facility] Comment on above: Performed By: #### L ACTAC #### Testing performed at [address] [address] LIPASEon 11-02-2022 Lipase [Catalytic activity/Vol] 105 U/L 23 - 300 U/L [facility] LIPASE,SERUMon 11-02-2022 LIPASE,SERUM 105 U/L Normal 23-300 [facility] Comment on above: Performed By: #### A CBC, LIPA2, CMPF #### Testing performed at [address] [address] No Panel Informationon 11-02 [facility] RAD - MISCon 11-02-2022 RAD - MISC [id number]:[id number] Normal [facility] URINALYSIS, MACROon 11-03-19 23 Bilirubin Ql (U) Negative NEGATIVE [facility] Clarity (U) CLEAR CLEAR [facility] Color (U) YELLOW YELLOW [facility] Glucose Test strip (U) [Mass/Vol] Negative NEGATIVE mg/dl [facility] Hemoglobin Ql (U) Negative NEGATIVE [facility] Interpretation and review of laboratory results Abnormal [facility] Ketones (U) [Mass/Vol] Negative NEGATIVE mg/dl [facility] Leukocyte esterase Test strip Ql (U) Negative NEGATIVE [facility] Nitrite Ql (U) Negative NEGATIVE [facility] pH (U) 8.5 [pH] High 5.0 - 7.0 [facility] Protein Ql (U) Negative NEGATIVE mg/dl [facility] Specific gravity (U) [Rel density] 1.020 1.010 - 1.025 [facility] Urobilinogen (U) [Mass/Vol] 1.0 mg/dL [facility] URINE HCG QUALon 11-02-2022 Beta HCG ( test) Ql (U) Negative Normal NEGATIVE [facility] Comment on above: Performed By: #### U HCGT, UMAC #### Testing performed at [address] [address] URINE MACROSCOPICon 11-03-19 23 Bilirubin Ql (U) Negative Normal NEGATIVE [facility] Comment on above: Performed By: #### U HCGT, UMAC #### Testing performed at [address] [address] Clarity (U) CLEAR Normal CLEAR [facility] Comment on above: Performed By: #### U HCGT, UMAC #### Testing performed at [address] [address] Color (U) YELLOW Normal YELLOW [facility] Comment on above: Performed By: #### U HCGT, UMAC #### Testing performed at [address] [address] Glucose Ql (U) Negative Normal NEGATIVE [facility] Comment on above: Performed By: #### U HCGT, UMAC #### Testing performed at [address] [address] pH (U) 8.5 [pH] High 5.0-7.0 [facility] Comment on above: Performed By: #### U HCGT, UMAC #### Testing performed at [address] [place] [address] URINE HEMOGLOBIN Negative Normal NEGATIVE [facility] Comment on above: Performed By: #### U HCGT, UMAC #### Testing performed at [address] [place] [address] URINE KETONE Negative Normal NEGATIVE [facility] Comment on above: Performed By: #### U HCGT, UMAC #### Testing performed at [address] [address] URINE LEUKOTEST Negative Normal NEGATIVE [facility] Comment on above: Performed By: #### U HCGT, UMAC #### Testing performed at [address] [address] URINE NITRATES Negative Normal NEGATIVE [facility] Comment on above: Performed By: #### U HCGT, UMAC #### Testing performed at [address] [address] URINE SPEC GRAVITY 1.020 Normal 1.010-1.025 [facility] Comment on above: Performed By: #### U HCGT, UMAC #### Testing performed at [address] [address] URINE TOTAL PROTEIN Negative Normal NEGATIVE [facility] Comment on above: Performed By: #### U HCGT, UMAC #### Testing performed at [address] [address] Urobilinogen Qn (U) 1.0 {Munir'U}/dL Normal 0.2-1.0 [facility] Comment on above: Performed By: #### U HCGT, UMAC #### Testing performed at [address] [address] CBC with Auto Differentialon 10-31-2022 Basophils (Bld) [#/Vol] [facility] Basophils/100 WBC (Bld) 0 % 0 - 2 % [facility] Eosinophils (Bld) [#/Vol] 0.03 10*3/uL [facility] Eosinophils/100 WBC (Bld) 0 % Low 1 - 4 % [facility] Erythrocyte distribution width (RBC) [Ratio] 12.8 % 11.8 - 14.4 % [facility] Hematocrit (Bld) [Volume fraction] 38.9 % 36.3 - 47.1 % [facility] Hemoglobin (Bld) [Mass/Vol] 13.3 g/dL 11.9 - 15.1 g/dL [facility] Immature granulocytes (Bld) [#/Vol] [facility] Immature granulocytes/100 WBC (Bld) 0 % 0 [facility] Interpretation and review of laboratory results Abnormal [facility] Lymphocytes/100 WBC (Bld) 19 % Low 24 - 43 % [facility] Lymphocytes/100 WBC (Bld) 1.46 % [facility] MCH (RBC) [Entitic mass] 30.6 pg 25.2 - 33.5 pg [facility] MCHC (RBC) [Mass/Vol] 34.2 g/dL 28.4 - 34.8 g/dL [facility] MCV (RBC) [Entitic vol] 89.4 fL 82.6 - 102.9 fL [facility] Monocytes/100 WBC (Bld) 5 % 3 - 12 % [facility] Monocytes/100 WBC (Bld) 0.41 % [facility] Neutrophils/100 WBC (Bld) 76 % High 36 - 65 % [facility] Nucleated RBC/100 WBC (Bld) [Ratio] 0.0 % 0.0 per 100 WBC [facility] Platelet mean volume (Bld) [Entitic vol] 12.0 fL 8.1 - 13.5 fL [facility] Platelets (Bld) [#/Vol] 246 10*3/uL [facility] RBC (Bld) [#/Vol] 4.35 10*6/uL 3.95 - 5.11 m/uL [facility] Segmented neutrophils/100 WBC (Bld) 5.66 % [facility] WBC other (Bld) [#/Vol] 7.6 [facility] CBC with Diffon 10-31-2022 Abs. Basophil <0.03 Normal 0.00-0.20 [facility] Comment on above: Performed By: #### L JUDITH BROWN, CDP #### [facility] [address] [place] [address] [place] [address] Copy Worker: Baldomero Espinoza MD Abs.Imm.Granulocyte <0.03 Normal 0.00-0.[address] [facility] Comment on above: Performed By: #### L KEVIN, CP, CDP #### [facility] [address] [place] [address] [place] [address] Copy Worker: Baldomero Espinoza MD Abs.Neutrophil (Seg) 5.66 k/uL Normal 1.50-8.[address] [facility] Comment on above: Performed By: #### L KEVIN, JUDITH, CDP #### [facility] [address] [place] [address] Dr. [place], [facility]83 Copy Worker: Baldomero Espinoza MD Basophils/100 WBC (Bld) 0 % Normal 0-[address] [facility] Comment on above: Performed By: #### L IP, CP, CDP #### [facility] [address] [place], [facility]83 Copy Worker: Baldomero Espinoza MD Eosinophils (Bld) [#/Vol] 0.03 10*3/uL Normal 0.00-0.[address] [facility] Comment on above: Performed By: #### L IP, CP, CDP #### [address] [place], [place] [address] Copy Worker: Baldomero Espinoza MD Eosinophils/100 WBC (Bld) 0 % Low 1-[address] [facility] Comment on above: Performed By: #### L IP, CP, CDP #### [address] [place], [place] [address] Copy Worker: Baldomero Espinoza MD Erythrocyte distribution width (RBC) [Ratio] 12.8 % Normal 11.8-14.[address] [facility] Comment on above: Performed By: #### L IP, CP, CDP #### [address] [place], [facility]83 Copy Worker: Baldomero Espinoza MD Hematocrit (Bld) [Volume fraction] 38.9 % Normal 36.3-47.[address] [facility] Comment on above: Performed By: #### L IP, CP, CDP #### [address] [place], [facility]83 Copy Worker: Baldomero Espinoza MD Hemoglobin (Bld) [Mass/Vol] 13.3 g/dL Normal 11.9-15.[address] [facility] Comment on above: Performed By: #### L IP, CP, CDP #### [address] [place], [facility]83 Copy Worker: Baldomero Espinoza MD Immature granulocytes/100 WBC (Bld) 0 % Normal [address] [facility] Comment on above: Performed By: #### L KEVIN CP, CDP #### [facility] [address] [place], [place] [id number] Copy Worker: Baldomero Espinoza MD Lymphocytes (Bld) [#/Vol] 1.46 10*3/uL Normal 1.10-3.[address] [facility] Comment on above: Performed By: #### L IP, CP, CDP #### [facility] [address] [place], [place] [id number] Copy Worker: Baldomero Espinoza MD Lymphocytes/100 WBC (Bld) 19 % Low 24-[address] [facility] Comment on above: Performed By: #### L KEVIN CP, CDP #### [address] [place], [facility]83 Copy Worker: Baldomero Espinoza MD MCH (RBC) [Entitic mass] 30.6 pg Normal 25.2-33.[address] [facility] Comment on above: Performed By: #### L JUDITH BROWN, CDP #### [address] [place], [facility]83 Copy Worker: Baldomero Espinoza MD MCHC (RBC) [Mass/Vol] 34.2 g/dL Normal 28.4-34.[address] [facility] Comment on above: Performed By: #### L KEVIN CP, CDP #### [facility] [address] [place] [address] Dr[place], [facility]83 Copy Worker: Baldomero Espinoza MD MCV (RBC) [Entitic vol] 89.4 fL Normal 82.6-102.[address] [facility] Comment on above: Performed By: #### L IP, CP, CDP #### [facility] [address] [place] [address] Copy Worker: Baldomero Espinoza MD Monocytes (Bld) [#/Vol] 0.41 10*3/uL Normal 0.10-1.[address] [facility] Comment on above: Performed By: #### L IP, CP, CDP #### [facility] [address] [place], [place] [id number] Copy Worker: Baldomero Espinoza MD Monocytes/100 WBC (Bld) 5 % Normal 3-[address] [facility] Comment on above: Performed By: #### L IP, CP, CDP #### [facility] [address] [place] [address] Copy Worker: Baldomero Espinoza MD Neutrophil (Seg) 76 % High 36-65 [facility] Comment on above: Performed By: #### L IP, CP, CDP #### [address] [place], [place] [id number] Copy Worker: Baldomero Espinoza MD NRBC Automated 0.0 per 100 WBC Normal 0.[address] [facility] Comment on above: Performed By: #### L KEVIN CP, CDP #### [address] [place], [place] [id number] Copy Worker: Baldomero Espinoza MD Platelet mean volume (Bld) [Entitic vol] 12.0 fL Normal 8.1-13.[address] [facility] Comment on above: Performed By: #### L IP CP, CDP #### [address] [place] [address] Copy Worker: Baldomero Espinoza MD Platelets (Bld) [#/Vol] 246 10*3/uL Normal 138-[address] [facility] Comment on above: Performed By: #### L IP, CP, CDP #### [address] [place], [place] [id number] Copy Worker: Baldomero Espinoza MD RBC (Bld) [#/Vol] 4.35 10*6/uL Normal 3.95-5.[address] [facility] Comment on above: Performed By: #### L JUDITH BROWN, CDP #### [facility] [address] [place] [address] Copy Worker: Baldomero Espinoza MD WBC (Bld) [#/Vol] 7.6 10*3/uL Normal 3.5-11.[address] [facility] Comment on above: Performed By: #### L JUDITH BROWN, CDP #### [facility] [address] [place] [address] Copy Worker: Baldomero Espinoza MD [facility] Albumin [Mass/Vol] 4.5 g/dL 3.5 - 5.2 g/dL [facility] Albumin/Globulin [Mass ratio] 1.7 {ratio} 1.0 - 2.5 [facility] ALP [Catalytic activity/Vol] 76 U/L 35 - 104 U/L [facility] ALT [Catalytic activity/Vol] 14 U/L 5 - 33 U/L [facility] Anion gap [Moles/Vol] 12 mmol/L 9 - 17 mmol/L [facility] AST [Catalytic activity/Vol] 24 U/L NINF - 32 U/L [facility] Bilirubin [Mass/Vol] 0.3 mg/dL 0.3 - 1.2 mg/dL [facility] Calcium [Mass/Vol] 9.1 mg/dL 8.6 - 10.4 mg/dL [facility] Chloride [Moles/Vol] 106 mmol/L 98 - 107 mmol/L [facility] CO2 [Moles/Vol] 18 mmol/L Low 20 - 31 mmol/L [facility] Creatinine [Mass/Vol] 0.7 mg/dL 0.5 - 0.9 mg/dL [facility] GFR/1.73 sq M.predicted MDRD (S/P/Bld) [Vol rate/Area] - PINF [facility] Comment on above: These results are not [...] [Mass/Vol] 87 mg/dL 70 - 99 mg/dL [facility] Interpretation and review of laboratory results Abnormal [facility] Potassium [Moles/Vol] 3.8 mmol/L 3.7 - 5.3 mmol/L [facility] Protein [Mass/Vol] 7.2 g/dL 6.4 - 8.3 g/dL [facility] Sodium [Moles/Vol] 136 mmol/L 135 - 144 mmol/L [facility] Urea nitrogen [Mass/Vol] 7 mg/dL 6 - 20 mg/dL [facility] Urea nitrogen/Creatinine [Mass ratio] 10 mg/mg 9 - 20 [facility] Comp Metabolic Profon 2022 Albumin [Mass/Vol] 4.5 g/dL Normal 3.5-5.[address] [facility] Comment on above: Performed By: #### L JUDITH BROWN, CDP #### [facility] [address] [place] [address] [place] [address] Copy Worker: Baldomero Espinoza MD Albumin/Glob Ratio 1.7 Normal 1.0-2.[address] [facility] Comment on above: Performed By: #### L KEVIN CP, CDP #### [facility] [address] [place] [address] Copy Worker: Baldomero Espinoza MD Alkaline Phos 76 U/L Normal 35-104 [facility] Comment on above: Performed By: #### L KEVIN CP, CDP #### [facility] [address] [place] [address] Copy Worker: Baldomero Espinoza MD ALT [Catalytic activity/Vol] 14 U/L Normal 5-[address] [facility] Comment on above: Performed By: #### L KEVIN CP, CDP #### [facility] [address] [place] [address] [place], [place] [phone] Copy Worker: Baldomero Espinoza MD Anion gap [Moles/Vol] 12 mmol/L Normal 9-[address] [facility] Comment on above: Performed By: #### L IP, CP, CDP #### [facility] [address] [place] [address] [place], [place] [phone] Copy Worker: Baldomero Espinoza MD AST [Catalytic activity/Vol] 24 U/L Normal <[address] [facility] Comment on above: Performed By: #### L IP, CP, CDP #### [address] [place], [place] [phone] Copy Worker: Baldomero Espinoza MD Bilirubin [Mass/Vol] 0.3 mg/dL Normal 0.3-1.[address] [facility] Comment on above: Performed By: #### L IP, CP, CDP #### [address] [place], [place] [phone] Copy Worker: Baldomero Espinoza MD BUN/CRE Ratio 10 Normal 9-20 [facility] Comment on above: Performed By: #### L IP, CP, CDP #### [address] [place], [place] [id number] Copy Worker: Baldomero Espinoza MD Calcium [Mass/Vol] 9.1 mg/dL Normal 8.6-10.[address] [facility] Comment on above: Performed By: #### L IP, CP, CDP #### [facility] [address] [place] [address] Dr[place], [place] [id number] Copy Worker: Baldomero Espinoza MD Chloride [Moles/Vol] 106 mmol/L Normal 98-[address] [facility] Comment on above: Performed By: #### L IP, CP, CDP #### [facility] [address] [place] [address] Dr[place], [place] [id number] Copy Worker: Baldomero Espinoza MD CO2 [Moles/Vol] 18 mmol/L Low 20-31 [facility] Comment on above: Performed By: #### L IP, CP, CDP #### [facility] [address] [place] [address] Copy Worker: Baldomero Espinoza MD Creatinine [Mass/Vol] 0.7 mg/dL Normal 0.5-0.[address] [facility] Comment on above: Performed By: #### L IP, CP, CDP #### [facility] [address] [place] [address] Copy Worker: Baldomero Espinoza MD GFR/1.73 sq M.predicted among non-blacks MDRD (S/P/Bld) [Vol rate/Area] mL/min/{1.73_m2} Normal >[address] [facility] Comment on above: Result Comment: These [...] By: #### L KEVIN CP, CDP #### [facility] [address] [place] [address] [place] [address] Copy Worker: Baldomero Espinoza MD Glucose [Mass/Vol] 87 mg/dL Normal 70-[address] [facility] Comment on above: Performed By: #### L IP, CP, CDP #### [facility] [address] [place] [address] Copy Worker: Baldomero Espinoza MD Potassium [Moles/Vol] 3.8 mmol/L Normal 3.7-5.[address] [facility] Comment on above: Performed By: #### L IP, CP, CDP #### [facility] [address] [place] [address] Copy Worker: Baldomero Espinoza MD Protein [Mass/Vol] 7.2 g/dL Normal 6.4-8.[address] [facility] Comment on above: Performed By: #### L JUDITH BROWN, CDP #### [facility] [address] [place] [address] Copy Worker: Baldomero Espinoza MD Sodium [Moles/Vol] 136 mmol/L Normal 135-[address] [facility] Comment on above: Performed By: #### L JUDITH BROWN, CDP #### [facility] [address] [place] [address] Copy Worker: Baldomero Espinoza MD Urea nitrogen [Mass/Vol] 7 mg/dL Normal 6-[address] [facility] Comment on above: Performed By: #### L JUDITH BROWN, CDP #### [facility] [facility] [address] [place] [address] Copy Worker: Baldomero Espinoza MD Lipaseon 10-31-2022 Lipase [Catalytic activity/Vol] 43 U/L Normal 13-[address] [facility] Comment on above: Performed By: #### L JUDITH BROWN, CDP #### [facility] [address] [place] [address] Copy Worker: Baldomero Espinoza MD Lipase [Catalytic activity/Vol] 43 U/L 13 - 60 U/L [facility] Microscopic Urinalysison Bacteria LM Ql (Urine sed) 1+ Abnormal None [facility] Epithelial cells LM.HPF (Urine sed) [#/Area] 2 TO 5 [facility] Interpretation and review of laboratory results Abnormal [facility] RBC LM.HPF (Urine sed) [#/Area] None [facility] WBC LM.HPF (Urine sed) [#/Area] None [facility] No Panel Informationon 10-31 [facility] UA w/Reflex Cultureon 2022 Bilirubin, SemiQt,Ur Negative Normal NEG [facility] Comment on above: Performed By: #### U MICAO, UAX ####[address] [place] [address] Lab Director: Baldomero Espinoza MD Blood, Urine Negative Normal NEG [facility] Comment on above: Performed By: #### U MICAO, UAX ####[address] , [place] [address] Lab Director: Baldomero Espinoza MD Clarity (U) Clear Normal CLEAR [facility] Comment on above: Performed By: #### U MICAO, UAX ####[address] [place] [address] Lab Director: Baldomero Espinoza MD Color (U) Yellow Normal YEL [facility] Comment on above: Performed By: #### U MICAO, UAX ####[address] [place] [address] Lab Director: Baldomero Espinoza MD Glucose Ql (U) Negative Normal NEG [facility] in [facility] Comment on above: Performed By: #### U MICAO, UAX ####[address] [place] [address] Lab Director: Baldomero Espinoza MD Ketones Ql (U) Negative Normal NEG [facility] in [facility] Comment on above: Performed By: #### U MICAO, UAX ####[address] [place] [address] Lab Director: Baldomero Espinoza MD Leukocyte esterase Test strip Ql (U) Negative Normal NEG [facility] Comment on above: Performed By: #### U MICAO, UAX ####[address] , [place] [address] Lab Director: Baldomero Espinoza MD Nitrite,Ur Negative Normal NEG [facility] Comment on above: Performed By: #### U MICAO, UAX ####[address] , [place] [address] [facility] Director: Baldomero Espinoza MD PH,Ur 7.0 Normal 5.0-9.[address] [facility] Comment on above: Performed By: #### U MICAO, UAX ####[address] [place] [address] lab Director: Baldomero Espinoza MD Protein Ql (U) Negative Normal NEG [facility] Comment on above: Performed By: #### U MICAO, UAX ####[address] , [place] [address] lab Director: Baldomero Espinoza MD Spec. [place],Ur 1.015 Normal 1.010-1.020 [facility] Comment on above: Performed By: #### U MICAO, UAX ####[address] , [place] [address] [facility] Director: Baldomero Espinoza MD Urobilinogen,Ur Normal Normal 0.0-1.0 [facility] Comment on above: Performed By: #### U LAURENO, UAX ####[address] , [place] [address] lab Director: Baldomero Espinoza MD Urinalysis with Reflex to Cu ltureon 10-31-2022 Bilirubin Ql (U) Negative NEGATIVE [facility] Clarity (U) Clear Clear [facility] Color (U) Yellow Yellow [facility] Glucose Test strip (U) [Mass/Vol] Negative NEGATIVE mg/dL [facility] Hemoglobin Auto test strip Ql (U) Negative NEGATIVE [facility] Ketones (U) [Mass/Vol] Negative NEGATIVE mg/dL [facility] Leukocyte esterase Test strip Ql (U) Negative NEGATIVE [facility] Nitrite Ql (U) Negative NEGATIVE [facility] pH (U) 7.0 [pH] 5.0 - 9.0 [facility] Protein (U) [Mass/Vol] Negative NEGATIVE mg/dL [facility] Specific gravity (U) [Rel density] 1.015 1.010 - 1.020 [facility] Urobilinogen Qn (U) Normal 0.0 - 1.0 EU/dL [facility] Urinalysis,Microon 3 Bacteria 1+ Abnormal NONE [facility] Comment on above: Performed By: #### U MICAO, UAX ####[facility] , [place] [address] lab Director: Baldomero Espinoza MD Epithelial cells LM Ql (Urine sed) 2 TO 5 Normal 0-[address] [facility] Comment on above: Performed By: #### U MICAO, UAX ####[address] , [place] [address] lab Director: Baldomero Espinoza MD Urine RBC's None Normal 0-[address] [facility] Comment on above: Performed By: #### U MICAO, UAX ####[address] [place] [address] lab Director: Baldomero Espinoza MD Urine WBC's None Normal 0-[address] [facility] Comment on above: Performed By: #### U MICAO, UAX ####[address] [place] [address] lab Director: Baldomero Espinoza MD XR [...] E Regalado MD 10/31/[address] [facility] 1. No acute vertebral body height loss or malalignment within the lumbar spine. 2. Mild anterior wedging of lower thoracic vertebral bodies, similar to the prior CT of 07/27/2021. 3. Prior cholecystectomy. Moderate stool burden. [facility] EXAMINATION: 5 XRAY VIEWS [...] sacral arcuate lines appear intact. Pelvic phleboliths. [facility] Luis E Regalado MD [...] 07/27/2021. 3. Prior cholecystectomy. Moderate stool burden. [facility] Radiology Study observation (narrative) [facility] XR LUMBAR SPINE (MIN 4 VIEWS )Ordered By: Luis E Regalado on 10-31-2022 [facility] Work Phone: Transfer Inon 10-30-2022 Transfer In [id number] 6#1.00CD:127 [facility] Discharge Instructionson Discharge Instructions [id number] 183#1.00CD:127 [facility] Comment on above: Other Comment: wrong [facility] Auth for Release of Medical Recordson 10-28-2022 Auth for Release of Medical Records [id number] 7#1.00CD:127 [facility] CBC panel Auto (Bld)on 10-28 Erythrocyte distribution width (RBC) [Ratio] 13.2 % Normal 11.5-15.0 [facility] Comment on above: Order Comment: Speci men Type: BLOOD SPECIMENOrdering Facility: [facility] Address: [address] [address] Performed By: #### 5 8410-2 ####[facility] LABORATORYCLIA [id number] [facility] [place] [address] [place] Hematocrit (Bld) [Volume fraction] 33.4 % Low 36.0-46.0 [facility] Comment on above: Order Comment: Speci men Type: BLOOD SPECIMENOrdering Facility: [facility] Address: [address] [place] [address] Performed By: #### 5 8410-2 ####[facility] LABORATORYCLIA [id number] [place] [address] [place] Hemoglobin (Bld) [Mass/Vol] 10.9 g/dL Low 11.5-15.5 [facility] Comment on above: Order Comment: Speci men Type: BLOOD SPECIMENOrdering Facility: [facility] Address: [address] [place] [address] Performed By: #### 5 8410-2 ####[facility] [id number] [address] [place] MCH (RBC) [Entitic mass] 30.4 pg Normal 26.0-34.0 [facility] Comment on above: Order Comment: Speci men Type: BLOOD SPECIMENOrdering Facility: [facility] Address: [address] [place] [address] Performed By: #### 5 8410-2 ####[facility] [id number] [address] [place] MCHC (RBC) [Mass/Vol] 32.6 g/dL Normal 30.5-36.0 [facility] Comment on above: Order Comment: Speci men Type: BLOOD SPECIMENOrdering Facility: [facility] Address: [address] [place] [address] Performed By: #### 5 8410-2 ####[facility] [id number] [address] [place] MCV (RBC) [Entitic vol] 93.3 fL Normal 80.0-100.0 [facility] Comment on above: Order Comment: Speci men Type: BLOOD SPECIMENOrdering Facility: [facility] Address: [address] [place] [address] Performed By: #### 5 8410-2 ####[facility] [id number] [address] [place] Nucleated RBC (Bld) [#/Vol] 10*3/uL Normal <0.01 [facility] Comment on above: Order Comment: Speci men Type: BLOOD SPECIMENOrdering Facility: [facility] Address: [address] [address] Performed By: #### 5 8410-2 ####[facility] LABORATORYIA [id number] [facility] [id number] [place] Platelet mean volume (Bld) [Entitic vol] 11.7 fL Normal 9.0-12.7 [facility] Comment on above: Order Comment: Speci men Type: BLOOD SPECIMENOrdering Facility: [facility] Address: [address] [address] Performed By: #### 5 8410-2 ####[facility] [id number] [place] [address] [place] Platelets (Bld) [#/Vol] 174 10*3/uL Normal 150-400 [facility] Comment on above: Order Comment: Speci men Type: BLOOD SPECIMENOrdering Facility: [facility] Address: [address] [address] Performed By: #### 5 8410-2 ####[facility] [id number] [place] [address] [place] RBC (Bld) [#/Vol] 3.58 10*6/uL Low 3.90-5.20 [facility] Comment on above: Order Comment: Speci men Type: BLOOD SPECIMENOrdering Facility: [facility] Address: [address] Performed By: #### 5 8410-2 ####[facility] LABORATORYCLIA [id number] [facility] [place] [address] [place] WBC (Bld) [#/Vol] 4.62 10*3/uL Normal 3.70-11.00 [facility] Comment on above: Order Comment: Speci men Type: BLOOD SPECIMENOrdering Facility: [facility] Address: [address] [address] Performed By: #### 5 8410-2 ####[facility] LABORATORYCLIA [id number] [facility] [place] [address] [place] CNDSon 10-28-2022 CNDS Normal [facility] Comprehensive metabolic 2000 panelon 10-28-2022 Albumin [Mass/Vol] 3.2 g/dL Low 3.9-4.9 [facility] Comment on above: Order Comment: Speci men Type: BLOOD SPECIMENOrdering Facility: [facility] Address: [address] [place] [address] Performed By: #### 2 4323-8, 2776-02, ####[facility] LABORATORYCLIA [id number] [place] [address] [place] ALP [Catalytic activity/Vol] 54 U/L Normal 34-123 [facility] Comment on above: Order Comment: Speci men Type: BLOOD SPECIMENOrdering Facility: [facility] Address: [address] [place] [address] Performed By: #### 2 4323-8, 2776-02, ####[facility] [id number] [place] [address] [place] ALT [Catalytic activity/Vol] 11 U/L Normal 7-38 [facility] Comment on above: Order Comment: Speci men Type: BLOOD SPECIMENOrdering Facility: [facility] Address: [address] [place] [address] Performed By: #### 2 4323-8, 2776-02, ####[facility] LABORATORYCLIA [id number] [place] [address] [place] Anion gap [Moles/Vol] 9 mmol/L Normal 9-18 [facility] Comment on above: Order Comment: Speci men Type: BLOOD SPECIMENOrdering Facility: [facility] Address: [address] [place], [place] [address] Performed By: #### 2 4323-8, 2776-02, ####[facility] LABORATORYCLIA [id number] [place] [address] [place] AST [Catalytic activity/Vol] 23 U/L Normal 13-35 [facility] Comment on above: Order Comment: Speci men Type: BLOOD SPECIMENOrdering Facility: [facility] Address: [address] [place] [address] Performed By: #### 2 4323-8, 2776-02, ####[facility] LABORATORYCLIA [id number] [place] [address] [place] Bilirubin [Mass/Vol] 0.3 mg/dL Normal 0.2-1.3 [facility] Comment on above: Order Comment: Speci men Type: BLOOD SPECIMENOrdering Facility: [facility] Address: [address] [place] [address] Performed By: #### 2 4323-8, 2776-02, ####[facility]ENTERCLIA [id number] [place] [address] [place] Calcium [Mass/Vol] 8.3 mg/dL Low 8.5-10.2 [facility] Comment on above: Order Comment: Speci men Type: BLOOD SPECIMENOrdering Facility: [facility] Address: [address] [place] [address] Performed By: #### 2 4323-8, 2776-02, ####[facility] [id number] [place] [address] [place] Chloride [Moles/Vol] 108 mmol/L High 97-105 [facility] Comment on above: Order Comment: Speci men Type: BLOOD SPECIMENOrdering Facility: [facility] Address: [address] [place], [place] [address] Performed By: #### 2 4323-8, 2776-02, ####[facility] LABORATORYIA [id number] [place] [address] [place] CO2 [Moles/Vol] 21 mmol/L Low 22-30 [facility] Comment on above: Order Comment: Speci men Type: BLOOD SPECIMENOrdering Facility: [facility] Address: [address] [id number] Performed By: #### 2 4323-8, 2777-, ####[facility] LABORATORYCLIA [id number] [facility] [place] [address] [place] Creatinine [Mass/Vol] 0.76 mg/dL Normal 0.58-0.96 [facility] Comment on above: Order Comment: Geraldo marrero Type: BLOOD SPECIMENOrdering Facility: [facility] Address: [address] Performed By: #### 2 4323-8, 2777, ####[facility] LABORATORYIA [id number] [place] [place] [id number] [place] Creatinine and Glomerular filtration rate.predicted panel (S/P/Bld) 106 mL/min/1.73m??? Normal >=60 [facility] Comment on above: Order Comment: Geraldo marrero Type: BLOOD SPECIMENOrdering Facility: [facility] Address: [address] Result Comment: Jessica mated Glomerular Filtration [...] actual GFR. Performed By: #### 2 4323-8, 2777, ####[facility] LABORATORYIA [id number] [place] [address] [place] Glucose [Mass/Vol] 84 mg/dL Normal 74-99 [facility] Comment on above: Order Comment: Geraldo marrero Type: BLOOD SPECIMENOrdering Facility: [facility] Address: [address] Result Comment: The [place] Diabetes Association (ADA) provides guidance for cutoff [...] Standards of Medical Care in Diabetes 2016, [place] [employer]. Diabetes Care. 2016.39(Suppl 1). Performed By: #### 2 4323-8, 2776-02, ####[facility] LABORATORYCLIA [id number] [place] [address] [place] Potassium [Moles/Vol] 4.1 mmol/L Normal 3.7-5.1 [facility] Comment on above: Order Comment: Speci [facility] Type: BLOOD SPECIMENOrdering Facility: [facility] Address: [address] [place] [address] Performed By: #### 2 4323-8, 2776-02, ####[facility] [id number] [place] [address] [place] Protein [Mass/Vol] 5.2 g/dL Low 6.3-8.0 [facility] Comment on above: Order Comment: Lyssai [facility] Type: BLOOD SPECIMENOrdering Facility: [facility] Address: [address] [place] [address] Performed By: #### 2 4323-8, 2776-02, ####[facility] [id number] [place] [address] [place] Sodium [Moles/Vol] 138 mmol/L Normal 136-144 [facility] Comment on above: Order Comment: Lyssai men Type: BLOOD SPECIMENOrdering Facility: [facility] Address: [address] [place] [address] Performed By: #### 2 4323-8, 2776-02, ####[facility] [id number] [place] [address] [place] Urea nitrogen [Mass/Vol] 7 mg/dL Normal 7-21 [facility] Comment on above: Order Comment: Speci men Type: BLOOD SPECIMENOrdering Facility: [facility] Address: [address] Performed By: #### 2 4323-8, 2777-1, ####[facility] [id number] [place] [address] [place] Formson 10-28-2022 Forms [id number]#1.00CD:127 Normal [facility] Magnesium [facility]28 Magnesium [Mass/Vol] 1.9 mg/dL Normal 1.7-2.3 [facility] Comment on above: Order Comment: Speci men Type: BLOOD SPECIMENOrdering Facility: [facility] Address: [address] [address] Performed By: #### 2 4323-8, 2777, ####[facility] [id number] [place] [address] [facility] [place] Phosphate SerPl-mCncon 10-28 Phosphate [Mass/Vol] 3.2 mg/dL Normal 2.7-4.8 [facility] Comment on above: Order Comment: Speci men Type: BLOOD SPECIMENOrdering Facility: [facility] Address: [address] [place], [place] [address] Performed By: #### 2 4323-8, 2777, ####[facility] [id number] [place] [address] [place] ANES POSTPROC EVALon 023 ANES POSTPROC EVAL Normal [facility] ANES PRE-OPon 10-27-2022 ANES PRE-OP Normal [facility] CBC panel Auto (Bld)on 10-27 Erythrocyte distribution width (RBC) [Ratio] 13.3 % Normal 11.5-15.0 [facility] Comment on above: Order Comment: Speci men Type: BLOOD SPECIMENOrdering Facility: [facility] Address: [address] [address] Performed By: #### 5 8410-2 ####[facility] LABORATORYIA [id number] [place] Hematocrit (Bld) [Volume fraction] 33.6 % Low 36.0-46.0 [facility] Comment on above: Order Comment: Speci men Type: BLOOD SPECIMENOrdering Facility: [facility] Address: [address] [address] Performed By: #### 5 8410-2 ####[facility] [id number] [place] [address] [place] Hemoglobin (Bld) [Mass/Vol] 10.9 g/dL Low 11.5-15.5 [facility] Comment on above: Order Comment: Speci men Type: BLOOD SPECIMENOrdering Facility: [facility] Address: [address] [place] [address] Performed By: #### 5 8410-2 ####[facility] [id number] [place] [address] [place] MCH (RBC) [Entitic mass] 30.5 pg Normal 26.0-34.0 [facility] Comment on above: Order Comment: Speci men Type: BLOOD SPECIMENOrdering Facility: [facility] Address: [address] [address] Performed By: #### 5 8410-2 ####[facility] LABORATORYIA [id number] [address] [place] MCHC (RBC) [Mass/Vol] 32.4 g/dL Normal 30.5-36.0 [facility] Comment on above: Order Comment: Speci men Type: BLOOD SPECIMENOrdering Facility: [facility] Address: [address] [place] [address] Performed By: #### 5 8410-2 ####[facility] LABORATORYIA [id number] [address] [place] MCV (RBC) [Entitic vol] 94.1 fL Normal 80.0-100.0 [facility] Comment on above: Order Comment: Speci men Type: BLOOD SPECIMENOrdering Facility: [facility] Address: [address] [place] [address] Performed By: #### 5 8410-2 ####[facility] [id number] [address] Nucleated RBC (Bld) [#/Vol] 10*3/uL Normal <0.01 [facility] Comment on above: Order Comment: Speci men Type: BLOOD SPECIMENOrdering Facility: [facility] Address: [address] [place] [address] Performed By: #### 5 8410-2 ####[facility] [id number] [address] [place] Platelet mean volume (Bld) [Entitic vol] 11.7 fL Normal 9.0-12.7 [facility] Comment on above: Order Comment: Speci men Type: BLOOD SPECIMENOrdering Facility: [facility] Address: [address] [place] [address] Performed By: #### 5 8410-2 ####[facility] [id number] [place] [address] [place] Platelets (Bld) [#/Vol] 160 10*3/uL Normal 150-400 [facility] Comment on above: Order Comment: Speci men Type: BLOOD SPECIMENOrdering Facility: [facility] Address: [address] [place], [place] [address] Performed By: #### 5 8410-2 ####[facility] [id number] [place] [address] [place] RBC (Bld) [#/Vol] 3.57 10*6/uL Low 3.90-5.20 [facility] Comment on above: Order Comment: Speci men Type: BLOOD SPECIMENOrdering Facility: [facility] Address: [address] [address] Performed By: #### 5 8410-2 ####[facility] LABORATORYCLIA [id number] [facility] [place] [address] [place] WBC (Bld) [#/Vol] 3.53 10*3/uL Low 3.70-11.00 [facility] Comment on above: Order Comment: Speci men Type: BLOOD SPECIMENOrdering Facility: [facility] Address: [address] [address] Performed By: #### 5 8410-2 ####[facility] [id number] [place] [address] [place] CONSULT PROGon 10-27-2022 CONSULT PROG Normal [facility] Comprehensive metabolic 2000 panelon 10-27-2022 Albumin [Mass/Vol] 3.3 g/dL Low 3.9-4.9 [facility] Comment on above: Order Comment: Speci men Type: BLOOD SPECIMENOrdering Facility: [facility] Address: [address] [address] Performed By: #### 2 4323-8, 2776-02, ####[facility] LABORATORYCLIA [id number] [place] [address] [place] ALP [Catalytic activity/Vol] 52 U/L Normal 34-123 [facility] Comment on above: Order Comment: Speci men Type: BLOOD SPECIMENOrdering Facility: [facility] Address: [address] [place], [place] [address] Performed By: #### 2 4323-8, 2776-02, ####[facility] LABORATORYCLIA [id number] [place] [address] [place] ALT [Catalytic activity/Vol] 14 U/L Normal 7-38 [facility] Comment on above: Order Comment: Speci men Type: BLOOD SPECIMENOrdering Facility: [facility] Address: [address] [place] [address] Performed By: #### 2 4323-8, 2776-02, ####[facility] [id number] [place] [address] [place] Anion gap [Moles/Vol] 8 mmol/L Low 9-18 [facility] Comment on above: Order Comment: Speci men Type: BLOOD SPECIMENOrdering Facility: [facility] Address: [address] [place] [address] Performed By: #### 2 4323-8, 2776-02, ####[facility] [id number] [place] [address] [place] AST [Catalytic activity/Vol] 28 U/L Normal 13-35 [facility] Comment on above: Order Comment: Speci men Type: BLOOD SPECIMENOrdering Facility: [facility] Address: [address] [place] [address] Performed By: #### 2 4323-8, 2776-02, ####[facility] [id number] [place] [address] [place] Bilirubin [Mass/Vol] 0.2 mg/dL Normal 0.2-1.3 [facility] Comment on above: Order Comment: Speci men Type: BLOOD SPECIMENOrdering Facility: [facility] Address: [address] [place] [address] Performed By: #### 2 4323-8, 2776-02, ####[facility] [id number] [place] [address] [place] Calcium [Mass/Vol] 8.1 mg/dL Low 8.5-10.2 [facility] Comment on above: Order Comment: Speci men Type: BLOOD SPECIMENOrdering Facility: [facility] Address: [address] [place] [address] Performed By: #### 2 4323-8, 27708-15, ####[facility] LABORATORYCLIA [id number] [facility] [place] [address] [place] Chloride [Moles/Vol] 110 mmol/L High 97-105 [facility] Comment on above: Order Comment: Speci men Type: BLOOD SPECIMENOrdering Facility: [facility] Address: [address] [place] [address] Performed By: #### 2 4323-8, 2776-02, ####[facility] LABORATORYCLIA [id number] [place] [address] [place] CO2 [Moles/Vol] 22 mmol/L Normal 22-30 [facility] Comment on above: Order Comment: Speci men Type: BLOOD SPECIMENOrdering Facility: [facility] Address: [address] [place] [address] Performed By: #### 2 4323-8, 2776-02, ####[facility]PITALIA [id number] [facility] [place] [address] [place] Creatinine [Mass/Vol] 0.70 mg/dL Normal 0.58-0.96 [facility] Comment on above: Order Comment: Speci men Type: BLOOD SPECIMENOrdering Facility: [facility] Address: [address] [place] [address] Performed By: #### 2 4323-8, 2776-02, ####[facility] LABORATORYIA [id number] [facility] [place] [address] [place] Creatinine and Glomerular filtration rate.predicted panel (S/P/Bld) 117 mL/min/1.73m??? Normal >=60 [facility] Comment on above: Order Comment: Speci men Type: BLOOD SPECIMENOrdering Facility: [facility] Address: [address] [place] [address] Result Comment: Jessica mated Glomerular Filtration Rate [...] actual GFR. Performed By: #### 2 4323-8, 2776-02, ####[facility] LABORATORYCLIA [id number] [place] [address] [place] Glucose [Mass/Vol] 89 mg/dL Normal 74-99 [facility] Comment on above: Order Comment: Speci men Type: BLOOD SPECIMENOrdering Facility: [facility] Address: [address] [place] [address] Result Comment: The [place] Diabetes Association (ADA) provides guidance for cutoff [...] Standards of Medical Care in Diabetes 2016, [place] [employer] Association. Diabetes Care. 2016.39(Suppl 1). Performed By: #### 2 4323-8, 2776-02, ####[facility] LABORATORYCLIA [id number] [place] [address] [place] Potassium [Moles/Vol] 4.1 mmol/L Normal 3.7-5.1 [facility] Comment on above: Order Comment: Speci men Type: BLOOD SPECIMENOrdering Facility: [facility] Address: [address] [place] [address] Performed By: #### 2 4323-8, 2776-02, ####[facility] LABORATORYCLIA [id number] [place] [address] [place] Protein [Mass/Vol] 5.0 g/dL Low 6.3-8.0 [facility] Comment on above: Order Comment: Speci men Type: BLOOD SPECIMENOrdering Facility: [facility] Address: [address] [facility] [place] [phone] Performed By: #### 2 4323-8, 2776-02, ####[facility] LABORATORYCLIA [id number] [place] [address] [place] Sodium [Moles/Vol] 140 mmol/L Normal 136-144 [facility] Comment on above: Order Comment: Speci men Type: BLOOD SPECIMENOrdering Facility: [facility] Address: [address] [place] [address] Performed By: #### 2 4323-8, 2776-02, ####[facility]ITALIA [id number] [place] [address] [place] Urea nitrogen [Mass/Vol] 5 mg/dL Low 7-21 [facility] Comment on above: Order Comment: Speci men Type: BLOOD SPECIMENOrdering Facility: [facility] Address: [address] [facility] [place] [address] Performed By: #### 2 4323-8, 2776-02, ####[facility]ITALIA [id number] [place] [address] [place] Magnesium SerPl-ncon 10-27 Magnesium [Mass/Vol] 1.9 mg/dL Normal 1.7-2.3 [facility] Comment on above: Order Comment: Speci men Type: BLOOD SPECIMENOrdering Facility: [facility] Address: [address] [place] [phone] Performed By: #### 2 4323-8, 2776-02, ####[facility] LABORATORYIA [id number] [place] [address] [place] NUTRITIONon 10-27-2022 NUTRITION Normal [facility] Phosphate SerPl-mCncon 09-12 -2023 Phosphate [Mass/Vol] 3.1 mg/dL Normal 2.7-4.8 [facility] Comment on above: Order Comment: Speci men Type: BLOOD SPECIMENOrdering Facility: [facility] Address: [address] [place] [address] Performed By: #### 2 4323-8, 2777-1, 27218-5 ####[facility] LABORATORYCLIA [id number] [facility].[place] [id number] [place] Upper GI endoscopyon 023 Upper GI endoscopy Normal [facility] CASE MGT INIT ASSESon 2022 CASE MGT INIT [facility] CBC panel Auto (Bld)on 10-26 Erythrocyte distribution width (RBC) [Ratio] 13.2 % Normal 11.5-15.0 [facility] Comment on above: Order Comment: Speci men Type: BLOOD SPECIMENOrdering Facility: [facility] Address: [address] [place] [address] Performed By: #### 5 8410-2 ####[facility] LABORATORYCLIA [id number] [place] [address] [place] Hematocrit (Bld) [Volume fraction] 34.9 % Low 36.0-46.0 [facility] Comment on above: Order Comment: Speci men Type: BLOOD SPECIMENOrdering Facility: [facility] Address: [address] [place] [address] Performed By: #### 5 8410-2 ####[facility] LABORATORYCLIA [id number] [facility] [place] [address] [place] Hemoglobin (Bld) [Mass/Vol] 11.1 g/dL Low 11.5-15.5 [facility] Comment on above: Order Comment: Speci men Type: BLOOD SPECIMENOrdering Facility: [facility] Address: [address] [place] [address] Performed By: #### 5 8410-2 ####[facility] LABORATORYCLIA [id number] [place] [address] [place] MCH (RBC) [Entitic mass] 30.9 pg Normal 26.0-34.0 [facility] Comment on above: Order Comment: Speci men Type: BLOOD SPECIMENOrdering Facility: [facility] Address: [address] [place] [address] Performed By: #### 5 8410-2 ####[facility] LABORATORYIA [id number] [place] [address] [place] MCHC (RBC) [Mass/Vol] 31.8 g/dL Normal 30.5-36.0 [facility] Comment on above: Order Comment: Speci men Type: BLOOD SPECIMENOrdering Facility: [facility] Address: [address] [place] [address] Performed By: #### 5 8410-2 ####[facility] [id number] [place] [address] [place] MCV (RBC) [Entitic vol] 97.2 fL Normal 80.0-100.0 [facility] Comment on above: Order Comment: Speci men Type: BLOOD SPECIMENOrdering Facility: [facility] Address: [address] [place] [address] Performed By: #### 5 8410-2 ####[facility] [id number] [address] [place] Nucleated RBC (Bld) [#/Vol] 10*3/uL Normal <0.01 [facility] Comment on above: Order Comment: Speci men Type: BLOOD SPECIMENOrdering Facility: [facility] Address: [address] [place] [address] Performed By: #### 5 8410-2 ####[facility]ITALIA [id number] [address] [place] Platelet mean volume (Bld) [Entitic vol] 11.9 fL Normal 9.0-12.7 [facility] Comment on above: Order Comment: Speci men Type: BLOOD SPECIMENOrdering Facility: [facility] Address: [address] [place] [address] Performed By: #### 5 8410-2 ####[facility] LABORATORYCLIA [id number] [facility] [place] [address] [facility] Platelets (Bld) [#/Vol] 181 10*3/uL Normal 150-400 [facility] Comment on above: Order Comment: Speci men Type: BLOOD SPECIMENOrdering Facility: [facility] Address: [address] [place], [place] [address] Performed By: #### 5 8410-2 ####[facility] LABORATORYCLIA [id number] [facility] [place] [address] [place] RBC (Bld) [#/Vol] 3.59 10*6/uL Low 3.90-5.20 [facility] Comment on above: Order Comment: Speci men Type: BLOOD SPECIMENOrdering Facility: [facility] Address: [address] [place] [address] Performed By: #### 5 8410-2 ####[facility]ENTERCLIA [id number] [place] [address] [facility] WBC (Bld) [#/Vol] 3.44 10*3/uL Low 3.70-11.00 [facility] Comment on above: Order Comment: Speci men Type: BLOOD SPECIMENOrdering Facility: [facility] Address: [address] [place] [address] Performed By: #### 5 8410-2 ####[facility] LABORATORYCLIA [id number] [facility] C[facility]USVD.[place] [id number] [facility] [place] CONSULTon 10-26-2022 CONSULT Normal [facility] Comprehensive metabolic 2000 panelon 10-26-2022 Albumin [Mass/Vol] 3.3 g/dL Low 3.9-4.9 [facility] Comment on above: Order Comment: Speci men Type: BLOOD SPECIMENOrdering Facility: [facility] Address: [address] [place] [address] Performed By: #### 2 4323-8, 51432-4, 3016-3, 2777-1 ####[facility] LABORATORYCLIA [id number] [place] [address] [place] ALP [Catalytic activity/Vol] 52 U/L Normal 34-123 [facility] Comment on above: Order Comment: Speci men Type: BLOOD SPECIMENOrdering Facility: [facility] Address: [address] [place] [address] Performed By: #### 2 4323-8, 30678-7, 6-3, 2777-1 ####[facility] LABORATORYCLIA [id number] [place] [address] [place] ALT [Catalytic activity/Vol] 15 U/L Normal 7-38 [facility] Comment on above: Order Comment: Speci men Type: BLOOD SPECIMENOrdering Facility: [facility] Address: [address] [place] [address] Performed By: #### 2 4323-8, 55638-9, 6-3, 277-1 ####[facility]ENTERCLIA [id number] [place] [address] [place] Anion gap [Moles/Vol] 9 mmol/L Normal 9-18 [facility] Comment on above: Order Comment: Speci men Type: BLOOD SPECIMENOrdering Facility: [facility] Address: [address] [place] [address] Performed By: #### 2 4323-8, 31756-1, 3015-3, 277-1 ####[facility] LABORATORYCLIA [id number] [facility] [place] [address] [place] AST [Catalytic activity/Vol] 30 U/L Normal 13-35 [facility] Comment on above: Order Comment: Speci men Type: BLOOD SPECIMENOrdering Facility: [facility] Address: [address] [place] [address] Performed By: #### 2 4323-8, 67650-8, 6-3, 2777-1 ####[facility] LABORATORYCLIA [id number] [place] [address] [place] Bilirubin [Mass/Vol] 0.4 mg/dL Normal 0.2-1.3 [facility] Comment on above: Order Comment: Speci men Type: BLOOD SPECIMENOrdering Facility: [facility] Address: [address] [place] [address] Performed By: #### 2 4323-8, 06071-1, 6-3, 7-1 ####[facility] LABORATORYCLIA [id number] [place] [address] [place] Calcium [Mass/Vol] 8.3 mg/dL Low 8.5-10.2 [facility] Comment on above: Order Comment: Speci men Type: BLOOD SPECIMENOrdering Facility: [facility] Address: [address] [place] [address] Performed By: #### 2 4323-8, , 6-3, 2776-1 ####[facility] LABORATORYCLIA [id number] [place] [address] [place] Chloride [Moles/Vol] 110 mmol/L High 97-105 [facility] Comment on above: Order Comment: Speci men Type: BLOOD SPECIMENOrdering Facility: [facility] Address: [address] [place] [address] Performed By: #### 2 4323-8, , 3015-3, 2776- ####[facility] LABORATORYCLIA [id number] [place] [address] [place] CO2 [Moles/Vol] 20 mmol/L Low 22-30 [facility] Comment on above: Order Comment: Speci men Type: BLOOD SPECIMENOrdering Facility: [facility] Address: [address] [place] [address] Performed By: #### 2 4323-8, , 3015-3, 2776-1 ####[facility] LABORATORYCLIA [id number] [place] [address] [place] Creatinine [Mass/Vol] 0.73 mg/dL Normal 0.58-0.96 [facility] Comment on above: Order Comment: Geraldo marrero Type: BLOOD SPECIMENOrdering Facility: [facility] Address: [address] [place] [address] Performed By: #### 2 4323-8, 40795-7, 3016-3, 2777-1 ####[facility] LABORATORYCLIA [id number] [facility] [place] [address] [place] Creatinine and Glomerular filtration rate.predicted panel (S/P/Bld) 112 mL/min/1.73m??? Normal >=60 [facility] Comment on above: Order Comment: [facility] Type: BLOOD SPECIMENOrdering Facility: [facility] Address: [address] [place] [phone] Result Comment: Jessica mated Glomerular Filtration Rate [...] actual GFR. Performed By: #### 2 4323-8, 50810-2, 3016-3, 2777-1 ####[facility] LABORATORYCLIA [id number] [place] [address] [place] Glucose [Mass/Vol] 83 mg/dL Normal 74-99 [facility] Comment on above: Order Comment: Geraldo [facility] Type: BLOOD SPECIMENOrdering Facility: [facility] Address: [place] [address] Result Comment: The [place] Diabetes Association (ADA) provides guidance for cutoff [...] Standards of Medical Care in Diabetes 2016, [place] [employer] Association. Diabetes Care. 2016.39(Suppl 1). Performed By: #### 2 4323-8, 47505-8, 3015-3, 2776- ####[facility]ENTERCLIA [id number] [facility] [place] [address] [place] Potassium [Moles/Vol] 4.2 mmol/L Normal 3.7-5.1 [facility] Comment on above: Order Comment: Speci men Type: BLOOD SPECIMENOrdering Facility: [facility] Address: [address] [place] [address] Performed By: #### 2 4323-8, 33157-7, 3015-3, 2776- ####[facility]OSPITALIA [id number] [place] [address] [place] Protein [Mass/Vol] 5.0 g/dL Low 6.3-8.0 [facility] Comment on above: Order Comment: Speci men Type: BLOOD SPECIMENOrdering Facility: [facility] Address: [address] [place] [address] Performed By: #### 2 4323-8, 95905-1, 3015-3, 2776- ####[facility]PITALIA [id number] [place] [address] [place] Sodium [Moles/Vol] 139 mmol/L Normal 136-144 [facility] Comment on above: Order Comment: Speci men Type: BLOOD SPECIMENOrdering Facility: [facility] Address: [address] [place] [address] Performed By: #### 2 4323-8, 42967-8, 3, 2776- ####[facility]PITALIA [id number] [place] [address] [place] Urea nitrogen [Mass/Vol] 5 mg/dL Low 7-21 [facility] Comment on above: Order Comment: Speci men Type: BLOOD SPECIMENOrdering Facility: [facility] Address: [address] [place] [address] Performed By: #### 2 4323-8, 30363-8, 3016-3, 2777-1 ####[facility]PITALIA [id number] [place] [address] [place] ED Note-Physicianon 10-27-19 ED Note-Physician Prabhakar [facility] Comment on above: Result Comment: Elec tronically Signed By: Lonnie Rios PA-C\.br\Date and Time Signed: 10/20/22 13:50 EDT\.br\Electronically Co-Signed By: Earnest Jett DO\.br\Date and Time Co-Signed: 10/26/22 07:01 EDT Magnesium SerPl-mCncon 10-26 Magnesium [Mass/Vol] 1.9 mg/dL Normal 1.7-2.3 [facility] Comment on above: Order Comment: Speci men Type: BLOOD SPECIMENOrdering Facility: [facility] Address: [address] [place], [place] [address] Performed By: #### 2 4323-8, 33004-9, 3016-3, 2777-1 ####[facility]PITALIA [id number] [place] [id number] [facility] Phosphate SerPl-mCncon 10-26 Phosphate [Mass/Vol] 4.3 mg/dL Normal 2.7-4.8 [facility] Comment on above: Order Comment: Speci men Type: BLOOD SPECIMENOrdering Facility: [facility] Address: [address] [place], [place] [phone] Performed By: #### 2 4323-8, 14907-3, 3016-3, 2777-1 ####[facility] LABORATORYIA [id number] [place] [address] [place] TSH SerPl-aCncon 10-26-2022 TSH Qn 0.712 m[IU]/L Normal 0.270-4.200 [facility] Comment on above: Order Comment: Speci men Type: BLOOD SPECIMENOrdering Facility: [facility] Address: [address] [place] [address] Result Comment: If t he patient is , TSH reference range varies by gestational period:First Trimester (weeks 9-12): 0.180-2.990 mIU/LSecond Trimester: 0.110-3.980 mIU/LThird Trimester: 0.480-4.710 mIU/Lisa Johnson et al. A Practical Approach for the Verifications and Determination of Site- and Trimester-Specific Reference Intervals for Thyroid Function tests in . Thyroid, 2019:29:3:412-420. Claus E, et al. 2017 Guidelines of the [place] Thyroid Association for the Diagnosis and Management of Thyroid Disease during and the . Thyroid, 2017:27:3:315-389. Performed By: #### 2 4323-8, 31462-1, 3016-3, 2777-1 ####[facility] LABORATORYCLIA [id number] [place] [address] [place] CBC W Auto Differential pane l (Bld)on 10-25-2022 Basophils (Bld) [#/Vol] 0.04 10*3/uL Normal <0.11 [facility] Comment on above: Order Comment: Speci elida Type: BLOOD SPECIMENOrdering Facility: [facility] Address: [address] [place] [address] Performed By: #### 5 7021-8 ####[facility] LABORATORYCLIA [id number] [place] [address] [place] Basophils/100 WBC (Bld) 1.1 % Normal [facility] Comment on above: Order Comment: Speci elida Type: BLOOD SPECIMENOrdering Facility: [facility] Address: [address] [place] [address] Performed By: #### 5 7021-8 ####[facility] LABORATORYIA [id number] [place] [id number] [place] Differential cell count method Nom (Bld) Auto Normal [facility] Comment on above: Order Comment: Lyssai eilda Type: BLOOD SPECIMENOrdering Facility: [facility] Address: [address] [place] [address] Performed By: #### 5 7021-8 ####[facility] LABORATORYIA [id number] [place] [address] [place] Eosinophils (Bld) [#/Vol] 0.07 10*3/uL Normal <0.46 [facility] Comment on above: Order Comment: Speci men Type: BLOOD SPECIMENOrdering Facility: [facility] Address: [address] [place] [address] Performed By: #### 5 7021-8 ####[facility] LABORATORYIA [id number] [address] [place] Eosinophils/100 WBC (Bld) 1.9 % Normal [facility] Comment on above: Order Comment: Speci men Type: BLOOD SPECIMENOrdering Facility: [facility] Address: [address] [place] [address] Performed By: #### 5 7021-8 ####[facility]ITALIA [id number] [address] [place] Erythrocyte distribution width (RBC) [Ratio] 13.0 % Normal 11.5-15.0 [facility] Comment on above: Order Comment: Speci men Type: BLOOD SPECIMENOrdering Facility: [facility] Address: [address] [place] [address] Performed By: #### 5 7021-8 ####[facility] LABORATORYIA [id number] [address] [place] Hematocrit (Bld) [Volume fraction] 39.5 % Normal 36.0-46.0 [facility] Comment on above: Order Comment: Speci men Type: BLOOD SPECIMENOrdering Facility: [facility] Address: [address] [place] [address] Performed By: #### 5 7021-8 ####[facility] LABORATORYIA [id number] [place] [address] [place] Hemoglobin (Bld) [Mass/Vol] 13.1 g/dL Normal 11.5-15.5 [facility] Comment on above: Order Comment: Speci men Type: BLOOD SPECIMENOrdering Facility: [facility] Address: [address] [place] [address] Performed By: #### 5 7021-8 ####[facility] LABORATORYCLIA [id number] [place] [address] [place] Immature granulocytes (Bld) [#/Vol] 10*3/uL Normal <0.10 [facility] Comment on above: Order Comment: Speci men Type: BLOOD SPECIMENOrdering Facility: [facility] Address: [address] [place] [address] Performed By: #### 5 7021-8 ####[facility] LABORATORYCLIA [id number] [place] [address] [place] Immature granulocytes/100 WBC (Bld) 0.3 % Normal [facility] Comment on above: Order Comment: Speci men Type: BLOOD SPECIMENOrdering Facility: [facility] Address: [address] Performed By: #### 5 7021-8 ####[facility]ENTERCLIA [id number] [place] [id number] [place] Lymphocytes (Bld) [#/Vol] 1.11 10*3/uL Normal 1.00-4.00 [facility] Comment on above: Order Comment: Speci men Type: BLOOD SPECIMENOrdering Facility: [facility] Address: [address] Performed By: #### 5 7021-8 ####[facility] LABORATORYCLIA [id number] [place] [id number] [place] Lymphocytes/100 WBC (Bld) 29.4 % Normal [facility] Comment on above: Order Comment: Speci men Type: BLOOD SPECIMENOrdering Facility: [facility] Address: [address] [place] [address] Performed By: #### 5 7021-8 ####[facility] LABORATORYCLIA [id number] [place] [address] [place] MCH (RBC) [Entitic mass] 30.5 pg Normal 26.0-34.0 [facility] Comment on above: Order Comment: Speci men Type: BLOOD SPECIMENOrdering Facility: [facility] Address: [address] [place] [address] Performed By: #### 5 7021-8 ####[facility] [id number] [address] [place] MCHC (RBC) [Mass/Vol] 33.2 g/dL Normal 30.5-36.0 [facility] Comment on above: Order Comment: Speci men Type: BLOOD SPECIMENOrdering Facility: [facility] Address: [address] [place] [address] Performed By: #### 5 7021-8 ####[facility] [id number] [place] [address] [place] MCV (RBC) [Entitic vol] 92.1 fL Normal 80.0-100.0 [facility] Comment on above: Order Comment: Speci men Type: BLOOD SPECIMENOrdering Facility: [facility] Address: [address] [place] [address] Performed By: #### 5 7021-8 ####[facility] [id number] [place] [address] [place] Monocytes (Bld) [#/Vol] 0.27 10*3/uL Normal <0.87 [facility] Comment on above: Order Comment: Speci men Type: BLOOD SPECIMENOrdering Facility: [facility] Address: [address] [place] [address] Performed By: #### 5 7021-8 ####[facility] [id number] [address] [place] Monocytes/100 WBC (Bld) 7.1 % Normal [facility] Comment on above: Order Comment: Speci men Type: BLOOD SPECIMENOrdering Facility: [facility] Address: [address] [place] [address] Performed By: #### 5 7021-8 ####[facility] LABORATORYIA [id number] [place] [id number] [place] Neutrophils (Bld) [#/Vol] 2.28 10*3/uL Normal 1.45-7.50 [facility] Comment on above: Order Comment: Speci men Type: BLOOD SPECIMENOrdering Facility: [facility] Address: [address] [place] [address] Performed By: #### 5 7021-8 ####[facility] LABORATORYIA [id number] [place] [address] [place] Neutrophils/100 WBC (Bld) 60.2 % Normal [facility] Comment on above: Order Comment: Speci men Type: BLOOD SPECIMENOrdering Facility: [facility] Address: [address] [address] Performed By: #### 5 7021-8 ####[facility] [id number] [place] [address] [place] Nucleated RBC (Bld) [#/Vol] 10*3/uL Normal <0.01 [facility] Comment on above: Order Comment: Speci men Type: BLOOD SPECIMENOrdering Facility: [facility] Address: [address] [address] Performed By: #### 5 7021-8 ####[facility] [id number] [place] [address] [place] Nucleated RBC/100 WBC (Bld) [Ratio] 0.0 /100 WBC Normal [facility] Comment on above: Order Comment: Speci men Type: BLOOD SPECIMENOrdering Facility: [facility] Address: [address] [address] Performed By: #### 5 7021-8 ####[facility] [id number] [place] [id number] [place] Platelet mean volume (Bld) [Entitic vol] 11.4 fL Normal 9.0-12.7 [facility] Comment on above: Order Comment: Speci men Type: BLOOD SPECIMENOrdering Facility: [facility] Address: [address] [address] Performed By: #### 5 7021-8 ####[facility] [id number] [place] [address] [place] Platelets (Bld) [#/Vol] 208 10*3/uL Normal 150-400 [facility] Comment on above: Order Comment: Speci men Type: BLOOD SPECIMENOrdering Facility: [facility] Address: [address] [address] Performed By: #### 5 7021-8 ####[facility] [id number] [place] [address] [place] RBC (Bld) [#/Vol] 4.29 10*6/uL Normal 3.90-5.20 [facility] Comment on above: Order Comment: Speci men Type: BLOOD SPECIMENOrdering Facility: [facility] Address: [address] [address] Performed By: #### 5 7021-8 ####[facility] [id number] [place] [id number] [place] WBC (Bld) [#/Vol] 3.78 10*3/uL Normal 3.70-11.00 [facility] Comment on above: Order Comment: Speci men Type: BLOOD SPECIMENOrdering Facility: [facility] Address: [address] [address] Performed By: #### 5 7021-8 ####[facility] [id number] [place] [address] [place] CT ABD/PEL W IVCONon 023 CT ABD/PEL W IVCON Normal [facility] Comprehensive metabolic 2000 panelon 10-25-2022 Albumin [Mass/Vol] 4.2 g/dL Normal 3.9-4.9 [facility] Comment on above: Order Comment: Speci men Type: BLOOD SPECIMENOrdering Facility: [facility] Address: [address] [address] Performed By: #### 1 9123-9, 69343-0, 0-3 ####[facility] LABORATORYCLIA [id number] [place] [address] [place] ALP [Catalytic activity/Vol] 70 U/L Normal 34-123 [facility] Comment on above: Order Comment: Speci men Type: BLOOD SPECIMENOrdering Facility: [facility] Address: [address] [address] Performed By: #### 1 9123-9, 59540-7, 3040-3 ####[facility] [id number] [place] [address] [place] ALT [Catalytic activity/Vol] 21 U/L Normal 7-38 [facility] Comment on above: Order Comment: Speci men Type: BLOOD SPECIMENOrdering Facility: [facility] Address: [address] [address] Performed By: #### 1 9123-9, 24949-2, 3040-3 ####[facility] [id number] [place] [address] [place] Anion gap [Moles/Vol] 10 mmol/L Normal 9-18 [facility] Comment on above: Order Comment: Speci men Type: BLOOD SPECIMENOrdering Facility: [facility] Address: [address] [address] Performed By: #### 1 9123-9, 82636-1, 3040-3 ####[facility] LABORATORYIA [id number] [place] [address] [place] AST [Catalytic activity/Vol] 38 U/L High 13-35 [facility] Comment on above: Order Comment: Speci men Type: BLOOD SPECIMENOrdering Facility: [facility] Address: [address] [address] Performed By: #### 1 9123-9, 96809-6, 3040-3 ####[facility] [id number] [place] [address] [place] Bilirubin [Mass/Vol] 0.3 mg/dL Normal 0.2-1.3 [facility] Comment on above: Order Comment: Speci men Type: BLOOD SPECIMENOrdering Facility: [facility] Address: [address] [place] [address] Performed By: #### 1 9123-9, 75730-6, 0-3 ####[facility] [id number] [place] [address] [place] Calcium [Mass/Vol] 8.8 mg/dL Normal 8.5-10.2 [facility] Comment on above: Order Comment: Speci men Type: BLOOD SPECIMENOrdering Facility: [facility] Address: [address] [place] [address] Performed By: #### 1 9123-9, , 3039-3 ####[facility] [id number] [place] [address] [place] Chloride [Moles/Vol] 106 mmol/L High 97-105 [facility] Comment on above: Order Comment: Speci men Type: BLOOD SPECIMENOrdering Facility: [facility] Address: [address] [place] [address] Performed By: #### 1 9123-9, 49339-2, 0-3 ####[facility] [id number] [place] [address] [place] CO2 [Moles/Vol] 22 mmol/L Normal 22-30 [facility] ital Comment on above: Order Comment: Speci men Type: BLOOD SPECIMENOrdering Facility: [facility] Address: [address] [place] [address] Performed By: #### 1 9123-9, 79891-4, 0-3 ####[facility] [id number] [place] [address] [place] Creatinine [Mass/Vol] 0.82 mg/dL Normal 0.58-0.96 [facility] Comment on above: Order Comment: Geraldo marrero Type: BLOOD SPECIMENOrdering Facility: [facility] Address: [address] [place] [address] Performed By: #### 1 9123-9, 01954-3, 3040-3 ####[facility] LABORATORYCLIA [id number] [place] [address] [facility] Creatinine and Glomerular filtration rate.predicted panel (S/P/Bld) 97 mL/min/1.73m??? Normal >=60 [facility] Comment on above: Order Comment: Geraldo marrero Type: BLOOD SPECIMENOrdering Facility: [facility] Address: [address] [place], [place] [address] Result Comment: Jessica mated Glomerular Filtration Rate [...] actual GFR. Performed By: #### 1 9123-9, 81706-6, 3040-3 ####[facility] LABORATORYCLIA [id number] [place] [address] [place] Glucose [Mass/Vol] 85 mg/dL Normal 74-99 [facility] Comment on above: Order Comment: Geraldo marrero Type: BLOOD SPECIMENOrdering Facility: [facility] Address: [address] [place] [address] Result Comment: The [place] Diabetes Association (ADA) provides guidance for cutoff [...] Standards of Medical Care in Diabetes 2016, [place] [employer]. Diabetes Care. 2016.39(Suppl 1). Performed By: #### 1 9123-9, 46445-3, 0-3 ####[facility] LABORATORYCLIA [id number] [place] [address] [place] Potassium [Moles/Vol] 3.8 mmol/L Normal 3.7-5.1 [facility] Comment on above: Order Comment: Speci men Type: BLOOD SPECIMENOrdering Facility: [facility] Address: [address] [address] Performed By: #### 1 9123-9, 63070-4, 0-3 ####[facility] [id number] [place] [address] [place] Protein [Mass/Vol] 6.5 g/dL Normal 6.3-8.0 [facility] Comment on above: Order Comment: Speci men Type: BLOOD SPECIMENOrdering Facility: [facility] Address: [address] [address] Performed By: #### 1 9123-9, 27928-0, 0-3 ####[facility] [id number] [place] [address] [place] Sodium [Moles/Vol] 138 mmol/L Normal 136-144 [facility] Comment on above: Order Comment: Speci men Type: BLOOD SPECIMENOrdering Facility: [facility] Address: [address] Performed By: #### 1 9123-9, 97149-4, 0-3 ####[facility] [id number] [place] [address] [place] Urea nitrogen [Mass/Vol] 7 mg/dL Normal 7-21 [facility] Comment on above: Order Comment: Speci men Type: BLOOD SPECIMENOrdering Facility: [facility] Address: [address] [place] [address] Performed By: #### 1 9123-9, 45770-6, 3040-3 ####[facility] [id number] [place] [address] [place] D dimer FEU PPP-mCncon 10-25 Fibrin D-dimer FEU (PPP) [Mass/Vol] <190 Normal <500 [facility] Comment on above: Order Comment: Speci men Type: BLOOD SPECIMENOrdering Facility: [facility] Address: [address] [place] [address] Performed By: #### 4 8065-7 ####[facility] [id number] [place] [address] [place] ECG COMPLETEon 10-25-2022 ECG COMPLETE Normal [facility] ED NOTEon 10-25-2022 ED NOTE HNO ID: [id number] Author: Anam Myers RN Service: ? Author Type: Registered Nurse Type: ED Notes Filed: 10/25/2022 8:19 AM Note Text: Pt unable to urinate sat this time. Aware urine sample is needed. Normal [facility] ED NOTE Normal [facility] ED PROV NOTEon 10-25-2022 ED PROV NOTE Normal [facility] HISTORY PHYSICALon HISTORY PHYSICAL Normal [facility] pital Lipase SerPl-cCncon 10-26-19 23 Lipase [Catalytic activity/Vol] 29 U/L Normal 16-61 [facility] Comment on above: Order Comment: Speci men Type: BLOOD SPECIMENOrdering Facility: [facility] Address: [address] [place] [address] Performed By: #### 1 9123-9, 84657-7, 3040-3 ####[facility] [id number] [place] [address] [place] Magnesium SerPl-mCncon 10-25 Magnesium [Mass/Vol] 1.9 mg/dL Normal 1.7-2.3 [facility] Comment on above: Order Comment: Speci men Type: BLOOD SPECIMENOrdering Facility: [facility] Address: [address] [address] Performed By: #### 1 9123-9, 31331-9, 3040-3 ####[facility] [id number] [place] [address] [place] NURSING PROGon 10-25-2022 NURSING PROG Normal [facility] Urinalysis complete panel (U )on 10-25-2022 Bilirubin Ql (U) Negative Normal Negative [facility] pital Comment on above: Order Comment: Speci men Type: URINE SPECIMENOrdering Facility: [facility] Address: [address] [address] Performed By: #### 2 4356-8 ####[facility] [id number] [place] [address] [place] Clarity (Unsp spec) Clear Normal Clear [facility] Comment on above: Order Comment: Speci men Type: URINE SPECIMENOrdering Facility: [facility] Address: [address] [place] [address] Performed By: #### 2 4356-8 ####[facility] [id number] [place] [address] [place] Color (U) Colorless Normal yellow [facility] Comment on above: Order Comment: Speci men Type: URINE SPECIMENOrdering Facility: [facility] Address: [address] [place] [address] Performed By: #### 2 4356-8 ####[facility] [id number] [place] [address] [place] Epithelial cells LM.HPF (Urine sed) [#/Area] Few Normal [facility] Comment on above: Order Comment: Speci men Type: URINE SPECIMENOrdering Facility: [facility] Address: [address] [place] [address] Performed By: #### 2 4356-8 ####[facility] [id number] [place] [address] [place] Glucose Test strip (U) [Mass/Vol] Negative Normal Trace, Negative [facility] Comment on above: Order Comment: Speci men Type: URINE SPECIMENOrdering Facility: [facility] Address: [address] [address] Performed By: #### 2 4356-8 ####[facility] LABORATORYIA [id number] [facility] [place] [address] [place] Hemoglobin Ql (U) Negative Normal Negative, Trace [facility] Comment on above: Order Comment: Speci men Type: URINE SPECIMENOrdering Facility: [facility] Address: [address] [address] Performed By: #### 2 4356-8 ####[facility] [id number] [place] [address] [place] Ketones Ql (U) Negative Normal Negative, Trace [facility] Comment on above: Order Comment: Speci men Type: URINE SPECIMENOrdering Facility: [facility] Address: [address] [place] [address] Performed By: #### 2 4356-8 ####[facility] LABORATORYIA [id number] [place] [address] [place] Leukocyte esterase Test strip Ql (U) Negative Normal Negative, 25 Patito/uL [facility] Comment on above: Order Comment: Speci men Type: URINE SPECIMENOrdering Facility: [facility] Address: [address] [address] Performed By: #### 2 4356-8 ####[facility] LABORATORYIA [id number] [place] [address] [place] Nitrite Ql (U) Negative Normal Negative [facility] Comment on above: Order Comment: Speci men Type: URINE SPECIMENOrdering Facility: [facility] Address: [address] [place] [address] Performed By: #### 2 4356-8 ####[facility] LABORATORYIA [id number] [place] [address] [place] pH (U) 6.5 [pH] Normal 5.0-8.0 [facility] Comment on above: Order Comment: Speci men Type: URINE SPECIMENOrdering Facility: [facility] Address: [address] [address] Performed By: #### 2 4356-8 ####[facility] [id number] [place] [address] [place] Protein (U) [Mass/Vol] Negative Normal Trace, Negative [facility] Comment on above: Order Comment: Speci men Type: URINE SPECIMENOrdering Facility: [facility] Address: [address] [address] Performed By: #### 2 4356-8 ####[facility] [id number] [place] [address] [place] RBC LM.HPF (Urine sed) [#/Area] 0-3 /HPF Normal 0-3 /HPF [facility] Comment on above: Order Comment: Speci men Type: URINE SPECIMENOrdering Facility: [facility] Address: [address] [address] Performed By: #### 2 4356-8 ####[facility] [id number] [address] [place] Specific gravity (U) [Rel density] 1.041 High 1.005-1.030 [facility] Comment on above: Order Comment: Speci men Type: URINE SPECIMENOrdering Facility: [facility] Address: [address] [address] Performed By: #### 2 4356-8 ####[facility] [id number] [place] [address] [place] Urobilinogen Ql (U) Normal Normal Negative [facility] Comment on above: Order Comment: Speci men Type: URINE SPECIMENOrdering Facility: [facility] Address: [address] [address] Performed By: #### 2 4356-8 ####[facility] [id number] [facility] [place] [address] [facility] WBC LM.HPF (Urine sed) [#/Area] 0-5 /HPF Normal 0-5 /HPF [facility] Comment on above: Order Comment: Speci men Type: URINE SPECIMENOrdering Facility: [facility] Address: [place] [address] Performed By: #### 2 4356-8 ####[facility] LABORATORYCLIA [id number] [facility] [place] [address] [facility] XR ABDOMEN (2 VIEWS)on 10-24 XR ABDOMEN [...] Kuldip Laughlin MD 10/23/22 Final result Normal [facility] CBC with Diffon 10-23-2022 Abs. Basophil 0.03 k/uL Normal 0.00-0.20 [facility] Comment on above: Performed By: #### L JUDITH BROWN, CDP #### [facility] [address] [place] [address] Copy Worker: Baldomero Espinoza MD Abs.Imm.Granulocyte <0.03 Normal 0.00-0.[address] [facility] Comment on above: Performed By: #### L JUDITH BROWN, CDP #### [facility] [address] [place] [address] Copy Worker: Baldomero Espinoza MD Abs.Neutrophil (Seg) 3.51 k/uL Normal 1.50-8.[address] [facility] Comment on above: Performed By: #### L JUDITH BROWN, CDP #### [address] [place], [facility]83 Copy Worker: Baldomero Espinoza MD Basophils/100 WBC (Bld) 1 % Normal 0-[address] [facility] Comment on above: Performed By: #### L IP, CP, CDP #### [address] [place], [facility]83 Copy Worker: Baldomero Espinoza MD Eosinophils (Bld) [#/Vol] 0.07 10*3/uL Normal 0.00-0.[address] [facility] Comment on above: Performed By: #### L IP, CP, CDP #### [address] [place], [facility]83 Copy Worker: Baldomero Espinoza MD Eosinophils/100 WBC (Bld) 1 % Normal 1-[address] [facility] Comment on above: Performed By: #### L IP, CP, CDP #### [address] [place], [facility]83 Copy Worker: Baldomero Espinoza MD Erythrocyte distribution width (RBC) [Ratio] 12.7 % Normal 11.8-14.[address] [facility] Comment on above: Performed By: #### L IP, CP, CDP #### [address] [place], [facility]83 Copy Worker: Baldomero Espinoza MD Hematocrit (Bld) [Volume fraction] 36.0 % Low 36.3-47.[address] [facility] Comment on above: Performed By: #### L IP, CP, CDP #### [address] [place], [facility]83 Copy Worker: Baldomero Espinoza MD Hemoglobin (Bld) [Mass/Vol] 12.2 g/dL Normal 11.9-15.[address] [facility] Comment on above: Performed By: #### L IP, CP, CDP #### [address] [place], [place] [address] Copy Worker: Baldomero Espinoza MD Immature granulocytes/100 WBC (Bld) 0 % Normal [address] [facility] Comment on above: Performed By: #### L IP, CP, CDP #### [facility] [address] [place], [place] [id number] Copy Worker: Baldomero Espinoza MD Lymphocytes (Bld) [#/Vol] 2.05 10*3/uL Normal 1.10-3.[address] [facility] Comment on above: Performed By: #### L IP, CP, CDP #### [address] [place], [facility]83 Copy Worker: Baldomero Espinoza MD Lymphocytes/100 WBC (Bld) 34 % Normal 24-[address] [facility] Comment on above: Performed By: #### L IP, CP, CDP #### [address] [place], [facility]83 Copy Worker: Baldomero Espinoza MD MCH (RBC) [Entitic mass] 30.8 pg Normal 25.2-33.[address] [facility] Comment on above: Performed By: #### L IP, CP, CDP #### [address] [place], [facility]83 Copy Worker: Baldomero Espinoza MD MCHC (RBC) [Mass/Vol] 33.9 g/dL Normal 28.4-34.[address] [facility] Comment on above: Performed By: #### L IP, CP, CDP #### [address] [place], [place] [id number] Copy Worker: Baldomero Espinoza MD MCV (RBC) [Entitic vol] 90.9 fL Normal 82.6-102.[address] [facility] Comment on above: Performed By: #### L IP, CP, CDP #### [address] [place], [place] [address] Copy Worker: Baldomero Espinoza MD Monocytes (Bld) [#/Vol] 0.44 10*3/uL Normal 0.10-1.[address] [facility] Comment on above: Performed By: #### L IP, CP, CDP #### [facility] [address] [place] [address] Copy Worker: Baldomero Espinoza MD Monocytes/100 WBC (Bld) 7 % Normal 3-[address] [facility] Comment on above: Performed By: #### L IP, CP, CDP #### [facility] [address] [place] [address] Copy Worker: Baldomero Espinoza MD Neutrophil (Seg) 57 % Normal 36-65 [facility] Comment on above: Performed By: #### L IP, CP, CDP #### [address] [place], [facility]31 ( Copy Worker: Baldomero Espinoza MD NRBC Automated 0.0 per 100 WBC Normal 0.[address] [facility] Comment on above: Performed By: #### L IP, CP, CDP #### [address] [place], [place] [address] Copy Worker: Baldomero Espinoza MD Platelet mean volume (Bld) [Entitic vol] 11.1 fL Normal 8.1-13.[address] [facility] Comment on above: Performed By: #### L IP, CP, CDP #### [facility] [address] [place] [address] [place] [address] Copy Worker: Baldomero Espinoza MD Platelets (Bld) [#/Vol] 226 10*3/uL Normal 138-[address] [facility] Comment on above: Performed By: #### L IP, CP, CDP #### [address] [place] [address] Copy Worker: Baldomero Espinoza MD RBC (Bld) [#/Vol] 3.96 10*6/uL Normal 3.95-5.[address] [facility] Comment on above: Performed By: #### L JUDITH BROWN, CDP #### [facility] [address] [place] [address] Copy Worker: Baldomero Espinoza MD WBC (Bld) [#/Vol] 6.1 10*3/uL Normal 3.5-11.[address] [facility] Comment on above: Performed By: #### L KEVIN CP, CDP #### [facility] [address] [place], [place] [id number] Copy Worker: Baldomero Espinoza MD CNPNon 10-23-2022 CNPN Normal [facility] Comp Metabolic Profon 2022 Albumin [Mass/Vol] 4.1 g/dL Normal 3.5-5.[address] [facility] Comment on above: Performed By: #### L JUDITH BROWN, CDP #### [facility] [address] [place], [place] [address] Copy Worker: Baldomero Espinoza MD Albumin/Glob Ratio 1.7 Normal 1.0-2.[address] [facility] Comment on above: Performed By: #### L JUDITH BROWN, CDP #### [facility] [address] [place], [place] [address] Copy Worker: Baldomero Espinoza MD Alkaline Phos 64 U/L Normal 35-104 [facility] Comment on above: Performed By: #### L KEVIN CP, CDP #### [facility] [address] [place], [place] [address] Copy Worker: Baldomero Espinoza MD ALT [Catalytic activity/Vol] 19 U/L Normal 5-[address] [facility] Comment on above: Performed By: #### L KEVIN CP, CDP #### [facility] [address] [place] [address] Copy Worker: Baldomero Espinoza MD Anion gap [Moles/Vol] 11 mmol/L Normal 9-[address] [facility] Comment on above: Performed By: #### L IP, CP, CDP #### [facility] [address] [place], [place] [address] Copy Worker: Baldomero Espinoza MD AST [Catalytic activity/Vol] 33 U/L High <[address] [facility] Comment on above: Performed By: #### L IP, CP, CDP #### [facility] [address] [place], [place] [phone] Copy Worker: Baldomero Espinoza MD Bilirubin [Mass/Vol] 0.5 mg/dL Normal 0.3-1.[address] [facility] Comment on above: Performed By: #### L IP, CP, CDP #### [address] [place], [place] [address]83 Copy Worker: Baldomero Espinoza MD BUN/CRE Ratio 14 Normal 9-20 [facility] Comment on above: Performed By: #### L IP, CP, CDP #### [address] [place], [place] [address] Copy Worker: Baldomero Espinoza MD Calcium [Mass/Vol] 9.0 mg/dL Normal 8.6-10.[address] [facility] Comment on above: Performed By: #### L IP, CP, CDP #### [address] [place], [place] [address] Copy Worker: Baldomero Espinoza MD Chloride [Moles/Vol] 103 mmol/L Normal 98-[address] [facility] Comment on above: Performed By: #### L IP, CP, CDP #### [address] [place] [address] Copy Worker: Baldomero Espinoza MD CO2 [Moles/Vol] 22 mmol/L Normal 20-31 [facility] Comment on above: Performed By: #### L IP, CP, CDP #### [facility] [address] [place] [address] Copy Worker: Baldomero Espinoza MD Creatinine [Mass/Vol] 0.7 mg/dL Normal 0.5-0.[address] [facility] Comment on above: Performed By: #### L IP, CP, CDP #### [facility] [address] [place] [address] Copy Worker: Baldomero Espinoza MD GFR/1.73 sq M.predicted among non-blacks MDRD (S/P/Bld) [Vol rate/Area] mL/min/{1.73_m2} Normal >[address] [facility] Comment on above: Result Comment: These [...] By: #### L IP, CP, CDP #### [facility] [address] [place] [address] [place] [address] Copy Worker: Baldomero Espinoza MD Glucose [Mass/Vol] 86 mg/dL Normal 70-[address] [facility] Comment on above: Performed By: #### L IP CP, CDP #### [facility] [address] [place] [address] Copy Worker: Baldomero Espinoza MD Potassium [Moles/Vol] 3.4 mmol/L Low 3.7-5.[address] [facility] Comment on above: Performed By: #### L IP, CP, CDP #### [facility] [address] [place] [address] Copy Worker: Baldomero Espinoza MD Protein [Mass/Vol] 6.5 g/dL Normal 6.4-8.[address] [facility] Comment on above: Performed By: #### L IP, CP, CDP #### [facility] [address] [place] [address] Copy Worker: Baldomero Espinoza MD Sodium [Moles/Vol] 136 mmol/L Normal 135-[address] [facility] Comment on above: Performed By: #### L IP, CP, CDP #### [facility] [address] [place] [address] Copy Worker: Baldomero Espinoza MD Urea nitrogen [Mass/Vol] 10 mg/dL Normal 6-[address] [facility] Comment on above: Performed By: #### L IP CP, CDP #### [facility] [address] [place] [address] Copy Worker: Baldomero Espinoza MD HCG, ,Urineon 10-23 Beta HCG ( test) Ql (U) Negative Normal NEG [facility] Comment on above: Result Comment: Spec imens with hCG levels near the threshold of the test (25 mIU/mL) may give a negative or indeterminate result. In such cases, another test should be performed with a new specimen in 48-72 hours. If early is suspected clinically in this setting, correlation with quantitative serum b-hCG level is suggested. [facility] has confirmed the use of plasma for this test. This has not been cleared or approved by the U.S. Food and Drug Administration. The FDA has determined that such clearance is not necessary. Performed By: #### U HCG, UAMIC #### [facility] [address] [place] [address] Copy Worker: Baldomero Espinoza MD Lactic Acidon 8 Lactate [Moles/Vol] 0.8 mmol/L Normal 0.5-2.[address] [facility] Comment on above: Performed By: #### L ACTIC #### [facility] [address] [place] [address] Copy Worker: Baldomero Espinoza MD Lipaseon 7 Lipase [Catalytic activity/Vol] 32 U/L Normal 13-[address] [facility] Comment on above: Performed By: #### L IP, CP, CDP #### [facility] [address] [place], [place] [address] Copy Worker: Baldomero Espinoza MD Urinalysis w/ Microon 2022 Bacteria 1+ Abnormal NONE [facility] Comment on above: Performed By: #### U HCG, UAMIC ####[facility] , [place] [address]83 Lab Director: Baldomero Espinoza MD Bilirubin, SemiQt,Ur Negative Normal NEG [facility] Comment on above: Performed By: #### U HCG, UAMIC ####[facility] , [place] [id number] Lab Director: Baldomero Espinoza MD Blood, Urine Negative Normal NEG [facility] Comment on above: Performed By: #### U HCG, UAMIC ####[facility] , [place] 1901[address] Lab Director: Baldomero Espinoza MD Clarity (U) Clear Normal CLEAR [facility] Comment on above: Performed By: #### U HCG, UAMIC ####[facility] , [place] [id number] Lab Director: Baldomero Espinoza MD Color (U) Yellow Normal YEL [facility] Comment on above: Performed By: #### U HCG, UAMIC ####[facility] , [place] 456[address]83 Lab Director: Baldomero Espinoza MD Epithelial cells LM Ql (Urine sed) 2 TO 5 Normal 0-[address] [facility] Comment on above: Performed By: #### U HCG, UAMIC ####[facility] , [place] 5938[address] Lab Director: Baldomero Espinoza MD Glucose Ql (U) Negative Normal NEG [facility] Comment on above: Performed By: #### U HCG, UAMIC ####[address] [place] [address] Lab Director: Baldomero Espinoza MD Ketones Ql (U) Negative Normal NEG [facility] in Hospital Comment on above: Performed By: #### U HCG, UAMIC ####[address] [place] [address] Lab Director: Baldomero Espinoza MD Leukocyte esterase Test strip Ql (U) Negative Normal NEG [facility] Comment on above: Performed By: #### U HCG, UAMIC ####[address] , [place] [address] Lab Director: Baldomero Espinoza MD Mucus Strands TRACE Abnormal NONE [facility] Comment on above: Performed By: #### U HCG, UAMIC ####[address] [place] [address] Lab Director: Baldomero Espinoza MD Nitrite,Ur Negative Normal NEG [facility] Comment on above: Performed By: #### U HCG, UAMIC ####[address] [place] [address] Lab Director: Baldomero Espinoza MD PH,Ur 6.5 Normal 5.0-9.[address] [facility] Comment on above: Performed By: #### U HCG, UAMIC ####[address] [place] [address] Lab Director: Baldomero Espinoza MD Protein Ql (U) Negative Normal NEG [facility] in Hospital Comment on above: Performed By: #### U HCG, UAMIC ####[address] , [place] 6[address] Lab Director: Baldomero Espinoza MD Spec. [place],Ur 1.010 Normal 1.010-1.020 [facility] Comment on above: Performed By: #### U HCG, UAMIC ####[facility] , [place] 8767[address] Lab Director: Baldomero Espinoza MD Urine RBC's 0 TO 2 Normal 0-[address] [facility] Comment on above: Performed By: #### U HCG, UAMIC ####[facility] , [place] 69[address] lab Director: Baldomero Espinoza MD Urine WBC's 0 TO 2 Normal 0-[address] [facility] Comment on above: Performed By: #### U HCG, UAMIC ####[address] , [facility]83 lab Director: Baldomero Espinoza MD Urobilinogen,Ur Normal Normal 0.0-1.0 [facility] Comment on above: Performed By: #### U HCG, UAMIC ####[address] , [facility]83 lab Director: Baldomero Espinoza MD Auto Diffon 10-20-2022 Basophils/100 WBC (Bld) 1.0 % Normal 0.0-2.0 [facility] Comment on above: Order Comment: Order Added by Discern Expert. Performed By: #### 2 467850, 6156760, 5714942, 86786482, 2609375 ####[facility] [address] [place] [address] Basophils/Leukocyte s Auto (Bld) [Pure # fraction] 0.0 E9/L Normal 0.0-0.2 [facility] Comment on above: Order Comment: Order Added by Discern Expert. Performed By: #### 2 381391, 2313668, 8422237, 94940545, 3104424 ####[facility] [address] [place] [address] Eosinophils/100 WBC (Bld) 2.2 % Normal 0.0-8.0 [facility] Comment on above: Order Comment: Order Added by Discern Expert. Performed By: #### 2 090350, 9518882, 3319122, 75779555, 6246412 ####[address] [place] [address] Eosinophils/Leukocy stevan Auto (Bld) [Pure # fraction] 0.1 E9/L Normal 0.0-0.5 [facility] Comment on above: Order Comment: Order Added by Mariela Expert. Performed By: #### 2 190550, 2355294, 6760954, 88041278, 9260328 ####[address] [place] [address] Lymphocytes/100 WBC (Bld) 35.9 % Normal 14.0-50.0 [facility] Comment on above: Order Comment: Order Added by Mariela Expert. Performed By: #### 2 886944, 6227488, 3440778, 62469943, 2009240 ####[address] [address] Lymphocytes/Leukocy stevan Auto (Bld) [Pure # fraction] 1.6 E9/L Normal 1.0-4.0 [facility] Comment on above: Order Comment: Order Added by Mariela Expert. Performed By: #### 2 663337, 7595193, 8115354, 44134051, 8018236 ####[address] [address] Monocytes/100 WBC (Bld) 5.9 % Normal 4.0-14.0 [facility] Comment on above: Order Comment: Order Added by Mariela Expert. Performed By: #### 2 280919, 6649289, 4596415, 04711937, 3495102 ####[address] [address] Monocytes/Leukocyte s Auto (Bld) [Pure # fraction] 0.3 E9/L Normal 0.2-1.0 [facility] Comment on above: Order Comment: Order Added by Mareila Expert. Performed By: #### 2 132907, 4556533, 7277012, 58572837, 1792010 ####[facility] [address] [place] [address] Neutrophils/100 WBC (Bld) 55.0 % Normal 36.0-75.0 [facility] Comment on above: Order Comment: Order Added by Discern Expert. Performed By: #### 2 456175, 4676713, 3813303, 02576972, 2807139 ####[address] [place] [address] Neutrophils/Leukocy stevan Auto (Bld) [Pure # fraction] 2.5 E9/L Normal 2.0-7.5 [facility] Comment on above: Order Comment: Order Added by Discern Expert. Performed By: #### 2 631114, 1736909, 7790982, 38025942, 1350632 ####[address] [address] CBC w/ Auto Diffon Erythrocyte distribution width (RBC) [Ratio] 14.0 % Normal 10.9-14.2 [facility] Comment on above: Performed By: #### 2 227065, 1150882, 2253413, 84565095, 6208258 ####[address] [address] Hematocrit (Bld) [Volume fraction] 40.1 % Normal 34.0-46.0 [facility] Comment on above: Performed By: #### 2 420377, 0284478, 5877304, 73493857, 9073243 ####[address] [address] Hemoglobin (Bld) [Mass/Vol] 13.7 g/dL Normal 12.0-16.0 [facility] Comment on above: Performed By: #### 2 440559, 9740193, 5794012, 31446801, 2555215 ####[address] [place] [address] MCH (RBC) [Entitic mass] 30.7 pg Normal 27.0-34.0 [facility] Comment on above: Performed By: #### 2 630410, 4709020, 6102928, 00306385, 9234409 ####[address] [address] MCHC (RBC) [Mass/Vol] 34.2 g/dL Normal 31.4-36.0 [facility] Comment on above: Performed By: #### 2 142363, 3923798, 4894866, 70851241, 3768673 ####[place] [address] MCV (RBC) [Entitic vol] 89.9 fL Normal 80.0-100.0 [facility] Comment on above: Performed By: #### 2 756227, 5557213, 4210379, 66875193, 4581348 ####[address] [address] Platelet mean volume (Bld) [Entitic vol] 9.7 fL Normal 6.4-10.8 [facility] Comment on above: Performed By: #### 2 020277, 0870261, 6861938, 34226958, 8154616 ####[address] [address] Platelets (Bld) [#/Vol] 258.0 E9/L Normal 150.0-500.0 [facility] Comment on above: Performed By: #### 2 382695, 9486756, 8787650, 34077162, 8853604 ####[address] [address] RBC (Bld) [#/Vol] 4.5 E12/L Normal 4.3-5.9 [facility] Comment on above: Performed By: #### 2 226904, 3865453, 3326840, 09957459, 9554732 ####[address] [address] WBC corrected for nucl RBC Auto (Bld) [#/Vol] 4.5 E9/L Normal 4.0-11.0 [facility] Comment on above: Performed By: #### 2 979936, 2530177, 7341026, 09383124, 5944621 ####[facility] [address] [place] [id number] CHEMISTRYOrdered By: Glassdoor SYSTEM on 10-20-2022 Albumin [Mass/Vol] 4.2 g/dL [...] rate/Area] 87 mL/min/1.73 m2 Normal >=59mL/min/1.73 m2 FT Chem S Lipase [Catalytic activity/Vol] 35 U/L [...] ratio] 1.4 {ratio} Normal 1.1 - 2.2 [facility] Chem S Anion gap [Moles/Vol] 11 mmol/L Normal 6 - 16 mEq/L [facility] Chem S Globulin (S) [Mass/Vol] 3.0 g/dL Normal 1.4 - 4.0 gm/dL [facility] Chem S Glucose [Mass/Vol] 86 mg/dL Normal 55 - 199 mg/dL [facility] Chem S Urea nitrogen/Creatinine [Mass ratio] 12 mg/mg Normal 10 - 20 [facility] Chem S CMPon 10-20-2022 Albumin/Globulin (S) [Mass conc ratio] 1.4 Normal 1.1-2.2 [facility] Comment on above: Performed By: #### 2 818241, 4988968, 4048365, 87957646, 6599030 ####[facility] [address] [place] [address] Anion gap [Moles/Vol] 11 mmol/L Normal 6-16 [facility] Comment on above: Performed By: #### 2 255970, 4683384, 4531797, 51259258, 0374291 ####[facility] [address] [place] [address] Globulin (S) [Mass/Vol] 3.0 g/dL Normal 1.4-4.0 [facility] Comment on above: Performed By: #### 2 292335, 8838833, 0599056, 83200607, 2627696 ####[facility] [address] [place] [address] Glucose [Mass/Vol] 86 mg/dL Normal 55-199 [facility] Comment on above: Result Comment: If t his glucose result represents a fasting glucose, interpretation should refer to the following reference range: 55-99 mg/dL Performed By: #### 2 778333, 3559039, 4575359, 28042540, 4184981 ####[facility] [address] [place] [address] Urea nitrogen/Creatinine [Mass ratio] 12 No Units Normal 10-20 [facility] Comment on above: Performed By: #### 2 603045, 5190496, 9442460, 15740739, 9400617 ####[facility] [address] [place] [address] Albumin [Mass/Vol] 4.2 g/dL Normal 3.3-5.0 [facility] Comment on above: Performed By: #### 2 268505, 0478847, 3059665, 02440691, 0603605 ####[facility] [address] [place] [address] ALP [Catalytic activity/Vol] 55 Int._Unit/L Normal 21-98 [facility] Comment on above: Performed By: #### 2 462134, 4303676, 8398030, 60279230, 5227272 ####[facility] [address] [place] [address] ALT No additional P-5'-P [Catalytic activity/Vol] 27 Int._Unit/L Normal 6-46 [facility] Comment on above: Performed By: #### 2 524144, 4796001, 4565841, 20080543, 7217350 ####[facility] [address] [place] [address] AST [Catalytic activity/Vol] 42 Int._Unit/L Normal 5-43 [facility] Comment on above: Performed By: #### 2 203451, 7697454, 7099292, 93919764, 8275086 ####[facility] [address] [place] [address] Bilirubin [Mass/Vol] 0.4 mg/dL Normal 0.0-1.1 [facility] Comment on above: Performed By: #### 2 264335, 2891969, 9315593, 79523197, 7301536 ####[facility] [address] [place] [address] Calcium [Mass/Vol] 9.0 mg/dL Normal 8.9-11.1 [facility] Comment on above: Performed By: #### 2 841691, 0258973, 3947408, 54759567, 6726714 ####[facility] [address] [place] [address] Chloride [Moles/Vol] 108 mmol/L Normal 101-111 [facility] Comment on above: Performed By: #### 2 894157, 5408718, 4810469, 91551814, 7122460 ####[facility] [address] [place] [address] CO2 [Moles/Vol] 24 mmol/L Normal 21-31 [facility] Comment on above: Performed By: #### 2 722364, 2506967, 5193738, 88967757, 1009262 ####[facility] [address] [place] [address] Creatinine [Mass/Vol] 0.9 mg/dL Normal 0.5-1.3 [facility] Comment on above: Performed By: #### 2 425059, 4314491, 2201752, 25114235, 3432021 ####[facility] [address] [place] [address] Potassium [Moles/Vol] 3.8 mmol/L Normal 3.5-5.3 [facility] Comment on above: Performed By: #### 2 215141, 3695121, 6147720, 00348171, 1709105 ####[facility] [address] [place] [address] Protein [Mass/Vol] 7.2 g/dL Normal 6.0-7.8 [facility] Comment on above: Performed By: #### 2 301375, 2010907, 4271649, 57976490, 1431306 ####[facility] [address] [place] [address] Sodium [Moles/Vol] 139 mmol/L Normal 135-145 [facility] Comment on above: Performed By: #### 2 129192, 3167592, 3913801, 38722259, 0743503 ####[facility] [address] [place] [address] Urea nitrogen [Mass/Vol] 11 mg/dL Normal 5-21 [facility] Comment on above: Performed By: #### 2 757346, 9932606, 0379976, 47863306, 4705145 ####[facility] [address] [place] [address] CNPNon 10-20-2022 CNPN Normal [facility] CT Abdomen/Pelvis w/o Contra ston 10-20-2022 CT Abdomen/Pelvis w/o Contrast Normal [facility] CT Chest w/o Contraston CT Chest w/o Contrast Normal [facility] Consent for Treatmenton Consent for Treatment [id number]#1.00CD:127 Normal [facility] Discharge Instructionson Discharge Instructions [id number]#1.00CD:127 Normal [facility] ED Clinical Summaryon 2022 ED Clinical Summary Normal [facility] ED Patient Education Noteon 10-20-2022 ED Patient Education Note Normal [facility] ED Patient Summaryon 023 ED Patient Summary Normal [facility] HEMATOLOGYOrdered By: SYSTEM SYSTEM on 10-20-2022 Basophils/100 [...] 1.6 E9/L Normal 1.0 - 4.0 E9/L [facility] Monocytes/100 WBC (Bld) 5.9 % Normal 4.0 - 14.0 % [facility] Monocytes/Leukocyte s Auto (Bld) [Pure # fraction] 0.3 E9/L Normal 0.2 - 1.0 E9/L [facility] Neutrophils/100 WBC (Bld) 55.0 % Normal 36.0 - 75.0 % [facility] Neutrophils/Leukocy stevan Auto (Bld) [Pure # fraction] 2.5 E9/L Normal 2.0 - 7.5 E9/L [facility] HEMATOLOGYOrdered By: Aliyah Renteria on 10-20-2022 [...] 4.5 E9/L Normal 4.0 - 11.0 E9/L [facility] Lipase Levelon 10-20-2022 Lipase [Catalytic activity/Vol] 35 U/L Normal 13-58 [facility] Comment on above: Performed By: #### 2 961660, 9737953, 3832807, 90408008, 4809195 ####[facility] [address] [place] [address] Prescriptions/Work Noteson 0 10-20-2022 Prescriptions/Work Notes [id number]#1.00CD:127 Normal [facility] Prescriptions/Work Notes [id number]#1.00CD:127 Normal [facility] Comment on above: Other Comment: scann ed in error UA With Cult Reflexon 2022 Bilirubin Ql (U) Negative Normal Negative [facility] Comment on above: Performed By: #### 1 3577939 ####[address] [address] Clarity (U) CLEAR Normal Clear [facility] Comment on above: Performed By: #### 1 3674082 ####[address] [address] Color (U) YELLOW Normal Yellow [facility] Comment on above: Performed By: #### 1 3482075 ####[address] [address] Epithelial cells.squamous LM.HPF (Urine sed) [#/Area] 3-4 Normal 0-2 [facility] Comment on above: Performed By: #### 1 9674468 ####[facility] [address] [place] [address] Glucose Test strip (U) [Mass/Vol] Negative Normal Negative [facility] Comment on above: Performed By: #### 1 8660581 ####[facility] [address] [place] [address] Hemoglobin Ql (U) Negative Normal Negative [facility] Comment on above: Performed By: #### 1 5690890 ####[address] [address] Ketones (U) [Mass/Vol] Negative Normal Negative [facility] Comment on above: Performed By: #### 1 5679799 ####[address] [address] [place].plasma/Lith ium.RBC (Bld) [Mass ratio] 0-3 Normal 0-3 [facility] Comment on above: Performed By: #### 1 3920717 ####[address] [address] Nitrite Ql (U) Negative Normal Negative [facility] Comment on above: Performed By: #### 1 3184106 ####[address] [address] pH (U) 7.5 [pH] Invalid Interpretation Code 5.0-9.0 [facility] Comment on above: Performed By: #### 1 8890268 ####[address] [address] Protein (U) [Mass/Vol] Negative Normal Negative [facility] Comment on above: Performed By: #### 1 6865544 ####[address] [address] Specific gravity (U) [Rel density] 1.015 Invalid Interpretation Code 1.005-1.030 [facility] Comment on above: Performed By: #### 1 4574648 ####[address] [address] Type of Urine collection method Clean Catch Normal [facility] Comment on above: Performed By: #### 1 6194578 ####[address] [address] Urobilinogen Qn (U) 0.2 {Munir'U}/dL Normal 0.0-1.0 [facility] Comment on above: Performed By: #### 1 2732369 ####[address] [address] WBC Auto Ql (U) Negative Normal Negative [facility] Comment on above: Performed By: #### 1 2308275 ####[address] [address] WBC LM.HPF (Urine sed) [#/Area] 0-5 Normal 0-5 [facility] Comment on above: Performed By: #### 1 7889410 ####[facility] [address] [place] [address] URINALYSISOrdered By: Edilberto Meng on 10-20-2022 Bilirubin [...] AM) Normal Negative [facility] UA Auto SS [place].plasma/Lith ium.RBC (Bld) [Mass ratio] 0-3 /HPF Normal [...] [facility] UA Auto SS Urobilinogen Qn (U) 0.6572118 {Munir'U}/dL Normal 0.0 - 1.0 EU/dL [facility] UA Auto SS WBC Auto Ql (U) Negative (10/20/22 10:25 AM) Normal Negative [facility] Auto SS WBC LM.HPF (Urine sed) [#/Area] 0-5 /HPF Normal 0-5/HPF [facility] UA Auto SS eGFRon 10-20-2022 GFR/1.73 sq M.predicted among non-blacks MDRD (S/P/Bld) [Vol rate/Area] 87 mL/min/1.73 m2 Normal >=59 [facility] Comment on above: Order Comment: Order added by Discern Expert. Result Comment: Director Revenue alejandra kidney disease could be indicated at eGFR's of less than 60 mL/min/1.73m2. Kidney failure is indicated at less than 15 mL/min/1.73m2. Performed By: #### 2 367387, 9720523, 9681476, 72757959, 6813881 ####[facility] [address] [place] [address] Auto DiffOrdered By: SYSTEM SYSTEM on 10-19-2022 Basophils/100 WBC (Bld) 0.8 % Normal 0.0-2.0 [facility] Comment on above: Order Comment: Order Added by Discern Expert. Performed By: #### 2 202152, 1423244, 68645967, 6065352, 9393876, 82638393, 3740358 ####[facility] [address] [place] [address] Basophils/Leukocyte s Auto (Bld) [Pure # fraction] 0.0 E9/L Normal 0.0-0.2 [facility] Comment on above: Order Comment: Order Added by Discern Expert. Performed By: #### 2 443481, 7114241, 76975380, 7697518, 0992471, 11014694, 9469938 ####[facility] [address] [place] [address] Eosinophils/100 WBC (Bld) 3.5 % Normal 0.0-8.0 [facility] Comment on above: Order Comment: Order Added by Discern Expert. Performed By: #### 2 103954, 1982809, 37727826, 9984893, 5556749, 51802933, 4783058 ####[place] [address] [address] Eosinophils/Leukocy stevan Auto (Bld) [Pure # fraction] 0.2 E9/L Normal 0.0-0.5 [facility] Comment on above: Order Comment: Order Added by Discern Expert. Performed By: #### 2 845090, 8372866, 34825763, 5136222, 3040174, 76101085, 8441684 ####[address] [address] Lymphocytes/100 WBC (Bld) 47.3 % Normal 14.0-50.0 [facility] Comment on above: Order Comment: Order Added by Discern Expert. Performed By: #### 2 870039, 4332370, 15894540, 7582912, 1206523, 79904829, 9635508 ####[address] [address] Lymphocytes/Leukocy stevan Auto (Bld) [Pure # fraction] 2.1 E9/L Normal 1.0-4.0 [facility] Comment on above: Order Comment: Order Added by Discern Expert. Performed By: #### 2 280171, 3714336, 46690308, 4928533, 2867158, 88059043, 3921374 ####[address] [address] Monocytes/100 WBC (Bld) 6.6 % Normal 4.0-14.0 [facility] Comment on above: Order Comment: Order Added by Discern Expert. Performed By: #### 2 677887, 3068529, 03537767, 3902207, 0957640, 53029750, 0874581 ####[address] [address] Monocytes/Leukocyte s Auto (Bld) [Pure # fraction] 0.3 E9/L Normal 0.2-1.0 [facility] Comment on above: Order Comment: Order Added by Discern Expert. Performed By: #### 2 360836, 0587740, 28294498, 0680042, 2463545, 89621347, 3952328 ####[address] [place] [address] Neutrophils/100 WBC (Bld) 41.8 % Normal 36.0-75.0 [facility] Comment on above: Order Comment: Order Added by Discern Expert. Performed By: #### 2 332729, 9311441, 18072418, 1447641, 1860171, 02474317, 1920425 ####[address] [place] [address] Neutrophils/Leukocy stevan Auto (Bld) [Pure # fraction] 1.8 E9/L Low 2.0-7.5 [facility] Comment on above: Order Comment: Order Added by Discern Expert. Performed By: #### 2 939788, 2184682, 60282961, 0994518, 4001881, 03095384, 4247647 ####[address] [address] BMPOrdered By: SYSTEM SYSTEM on 10-19-2022 Creatinine [Mass/Vol] 0.8 mg/dL Normal 0.5-1.3 [facility] Comment on above: Performed By: #### 2 348003, 6008560, 91904863, 2395237, 8178849, 68972516, 3320804 ####[address] [place] [address] Urea nitrogen [Mass/Vol] 9 mg/dL Normal 5-21 [facility] Comment on above: Performed By: #### 2 890993, 6861403, 56946981, 5484271, 3764576, 05143625, 6598252 ####[address] [place] [address] Anion gap [Moles/Vol] 10 mmol/L Normal 6-16 [facility] Comment on above: Performed By: #### 2 233146, 0468853, 59987336, 2022416, 1205690, 49628322, 6516345 ####[address] [place] [address] Calcium [Mass/Vol] 9.3 mg/dL Normal 8.9-11.1 [facility] R emisol Comment on above: Performed By: #### 2 025677, 0919804, 83325724, 3773189, 6890960, 93438668, 5826916 ####[facility] [address] [place] [address] Chloride [Moles/Vol] 108 mmol/L Normal 101-111 [facility] Remisol Comment on above: Performed By: #### 2 086952, 6883043, 40488656, 5420600, 0385241, 84173612, 5853799 ####[facility] [address] [place] [address] CO2 [Moles/Vol] 25 mmol/L Normal 21-31 [facility] Jonathan blade Comment on above: Performed By: #### 2 877104, 5636944, 20572319, 5056037, 6332237, 45757095, 6972163 ####[facility] [address] [place] [address] Glucose [Mass/Vol] 83 mg/dL Normal 55-199 [facility] R emisol Comment on above: Result Comment: If t his glucose result represents a fasting glucose, interpretation should refer to the following reference range: 55-99 mg/dL Performed By: #### 2 848349, 8852163, 61458596, 6058566, 3905179, 16290502, 7381554 ####[facility] [address] [place] [address] Potassium [Moles/Vol] 4.1 mmol/L Normal 3.5-5.3 [facility] Remisol Comment on above: Performed By: #### 2 478144, 3556989, 73678595, 0338192, 1168492, 62925776, 8486110 ####[facility] [address] [place] [address] Sodium [Moles/Vol] 139 mmol/L Normal 135-145 [facility] R emisol Comment on above: Performed By: #### 2 634577, 9666187, 22685677, 0520217, 5902538, 65259347, 6313370 ####[facility] [address] [place] [address] BMPon 10-19-2022 Urea nitrogen/Creatinine [Mass ratio] 11 No Units Normal 10-20 [facility] Comment on above: Performed By: #### 2 304560, 9091477, 25936657, 1646740, 7521225, 08167617, 5815090 ####[facility] [address] [place] [address] CBC w/ Auto DiffOrdered By: Kaye Das on 10-19-2022 Erythrocyte distribution width (RBC) [Ratio] 13.7 % Normal 10.9-14.2 [facility] HemeAutoSS Comment on above: Performed By: #### 2 225405, 1541000, 20844422, 1142530, 1882082, 90167798, 6160366 ####[address] [address] Hematocrit (Bld) [Volume fraction] 40.7 % Normal 34.0-46.0 [facility] HemeAutoSS Comment on above: Performed By: #### 2 642541, 1498114, 22847798, 2629379, 5571408, 80274573, 9013042 ####[address] [place] [address] Hemoglobin (Bld) [Mass/Vol] 14.1 g/dL Normal 12.0-16.0 [facility] HemeAutoSS Comment on above: Performed By: #### 2 528808, 1611642, 02322733, 7423960, 2409355, 16875428, 4705975 ####[address] [address] MCH (RBC) [Entitic mass] 31.0 pg Normal 27.0-34.0 [facility] HemeAutoSS Comment on above: Performed By: #### 2 994384, 1189937, 39858513, 5201326, 8285334, 85569309, 1983431 ####[place] [address]57 MCHC (RBC) [Mass/Vol] 34.5 g/dL Normal 31.4-36.0 [facility] HemeAutoSS Comment on above: Performed By: #### 2 036700, 4318558, 08026499, 4207381, 8317147, 58119300, 3924952 ####[place] [address]1757 MCV (RBC) [Entitic vol] 89.8 fL Normal 80.0-100.0 [facility] HemeAutoSS Comment on above: Performed By: #### 2 262916, 2326830, 67414871, 6574861, 1673172, 20079832, 4495838 ####[place] [address] Platelet mean volume (Bld) [Entitic vol] 10.3 fL Normal 6.4-10.8 [facility] HemeAutoSS Comment on above: Performed By: #### 2 314625, 9718567, 53197646, 9512547, 9629293, 10889297, 2769417 ####[place] [address]1757 Platelets (Bld) [#/Vol] 245.0 E9/L Normal 150.0-500.0 [facility] HemeAutoSS Comment on above: Performed By: #### 2 924799, 5421910, 91855022, 2603648, 4554574, 69006108, 6214058 ####[address] [address] RBC (Bld) [#/Vol] 4.5 E12/L Normal 4.3-5.9 [facility] HemeAutoSS Comment on above: Performed By: #### 2 495180, 6001525, 14155572, 6823427, 5017971, 28516825, 0380841 ####[place] [address] [address] WBC corrected for nucl RBC Auto (Bld) [#/Vol] 4.4 E9/L Normal 4.0-11.0 [facility] HemeAutoSS Comment on above: Performed By: #### 2 238105, 3837305, 90961112, 5882326, 2823887, 68379740, 1602828 ####[facility] [address] [place] [address] CHEMISTRYOrdered By: SYSTEM SYSTEM on 10-19-2022 Albumin/Globulin [Mass ratio] 1.5 {ratio} Normal 1.1 - 2.2 [facility] ALP [Catalytic activity/Vol] 63 [iU]/d Normal 21 - 98 Int._Unit/L [facility] ALT No additional P-5'-P [Catalytic activity/Vol] 30 [iU]/d Normal 6 - 46 Int._Unit/L [facility] AST [Catalytic activity/Vol] 47 [iU]/d High 5 - 43 Int._Unit/L [facility] Bilirubin.indirect [Mass or moles/Vol] Unable to Calculate mg/dL Invalid Interpretation Code 0.1 - 0.9 mg/dL [facility] Remisol Urea nitrogen/Creatinine [Mass ratio] 11 mg/mg Normal 10 - 20 [facility] Remisol Consent for Treatmenton Consent for Treatment [id number] C7#1.00CD:127 Normal [facility] Discharge Instructionson Discharge Instructions [id number] 6#1.00CD:127 Normal [facility] ED Clinical Summaryon 2022 ED Clinical Summary Normal [facility] ED Note-Physicianon 10-20-19 23 ED Note-Physician Normal [facility] Comment on above: Result Comment: Elec tronically Signed By: Earnest Jett DO\.br\Date and Time Signed: 10/19/22 13:41 EDT ED Patient Education Noteon 10-19-2022 ED Patient Education Note Normal [facility] ED Patient Summaryon 023 ED Patient Summary Normal [facility] Hep Func Panelon 10-19-2022 Bilirubin.indirect [Mass or moles/Vol] UTC Abnormal 0.1-0.9 [facility] Comment on above: Result Comment: Resu lt verified by Discern Rule. Performed result [facility] (Unable to Calculate) was sent as an Alpha code due the inability to calculate a valid numeric value. Performed By: #### 2 498390, 8286136, 34371563, 9802807, 8994157, 42517942, 9022806 ####[facility] [address] [place] [address] Albumin/Globulin (S) [Mass conc ratio] 1.5 Normal 1.1-2.2 [facility] Comment on above: Performed By: #### 2 472341, 1422136, 00685637, 8937102, 3383090, 81240014, 5479650 ####[facility] [address] [place] [address] ALP [Catalytic activity/Vol] 63 Int._Unit/L Normal 21-98 [facility] Comment on above: Performed By: #### 2 448047, 9027804, 26134185, 3129940, 8412658, 82814229, 8248959 ####[facility] [address] [place] [address] ALT No additional P-5'-P [Catalytic activity/Vol] 30 Int._Unit/L Normal 6-46 [facility] Comment on above: Performed By: #### 2 009248, 7865725, 60268400, 3987055, 4209797, 20510686, 8707778 ####[facility] [address] [place] [address] AST [Catalytic activity/Vol] 47 Int._Unit/L High 5-43 [facility] Comment on above: Performed By: #### 2 430986, 9360361, 00203894, 5319489, 1653474, 38417325, 8889129 ####[facility] [address] [place] [address] Hep Func PanelOrdered By: Telunjuk SYSTEM on 10-19-2022 Albumin [Mass/Vol] 4.4 g/dL Normal 3.3-5.0 [facility] R emisol Comment on above: Performed By: #### 2 333739, 7980269, 24270607, 6913317, 8741371, 60259139, 2736881 ####[place] [facility] [address] [place] [address] Bilirubin [Mass/Vol] 0.5 mg/dL Normal 0.0-1.1 [facility] Comment on above: Performed By: #### 2 570530, 4788710, 12359571, 4297457, 0482719, 26260052, 7435310 ####[place] [address] [address] Globulin (S) [Mass/Vol] 3.0 g/dL Normal 1.4-4.0 [facility] Comment on above: Performed By: #### 2 294102, 9960428, 55854122, 6067546, 4937980, 61610083, 6708363 ####[place] [address] [address] Protein [Mass/Vol] 7.4 g/dL Normal 6.0-7.8 FT R emisol Comment on above: Performed By: #### 2 162784, 6067075, 71495341, 3753247, 7351599, 87106729, 9700254 ####[place] [address] [address] Bilirubin.direct [Mass/Vol] mg/dL Normal 0.1-0.4 [facility] Comment on above: Performed By: #### 2 505197, 9345663, 19135746, 0573976, 5744392, 49565543, 3689466 ####[place] [address] [address] Lipase LevelOrdered By: SYST EM SYSTEM on 10-19-2022 Lipase [Catalytic activity/Vol] 89 U/L High 13-58 [facility] Comment on above: Performed By: #### 2 894583, 7544652, 02350340, 0135762, 5270789, 75994012, 3535571 ####[facility] [address] [place] [address] Prescriptions/Work Noteson 0 10-19-2022 Prescriptions/Work Notes [id number] 7#1.00CD:127 Normal [facility] TSH With T4fr ReflexOrdered By: SYSTEM SYSTEM on 10-19-2022 TSH Qn 0.68 m[IU]/L Normal 0.34-5.60 [facility] Comment on above: Performed By: #### 2 048731, 7486468, 78169701, 2025604, 8342944, 77816195, 7138353 ####[facility] [address] [place] [address] UA With Cult Reflexon 2022 Bilirubin Ql (U) Negative Normal Negative [facility] Comment on above: Performed By: #### 1 3336579 ####[address] [address] Clarity (U) CLEAR Normal Clear [facility] Comment on above: Performed By: #### 1 5655885 ####[facility] [address] [place] [address] Color (U) YELLOW Normal Yellow [facility] Comment on above: Performed By: #### 1 1676583 ####[facility] [address] [place] [address] Epithelial cells.squamous LM.HPF (Urine sed) [#/Area] 0-2 Normal 0-2 [facility] Comment on above: Performed By: #### 1 3785478 ####[facility] [address] [place] [address] Glucose Test strip (U) [Mass/Vol] Negative Normal Negative [facility] Comment on above: Performed By: #### 1 7791653 ####[facility] [address] [place] [address] Hemoglobin Ql (U) Negative Normal Negative [facility] Comment on above: Performed By: #### 1 2886050 ####[address] [address] Ketones (U) [Mass/Vol] Negative Normal Negative [facility] Comment on above: Performed By: #### 1 9063316 ####[address] [address] [place].plasma/Lith ium.RBC (Bld) [Mass ratio] 0-3 Normal 0-3 [facility] Comment on above: Performed By: #### 1 8208147 ####[address] [address] Nitrite Ql (U) Negative Normal Negative [facility] Comment on above: Performed By: #### 1 3241947 ####[address] [address] pH (U) 7.5 [pH] Invalid Interpretation Code 5.0-9.0 [facility] Comment on above: Performed By: #### 1 8454888 ####[address] [address] Protein (U) [Mass/Vol] Negative Normal Negative [facility] Comment on above: Performed By: #### 1 8103918 ####[address] [address] Specific gravity (U) [Rel density] 1.010 Invalid Interpretation Code 1.005-1.030 [facility] Comment on above: Performed By: #### 1 3918357 ####[address] [address] Type of Urine collection method Clean Catch Normal [facility] Comment on above: Performed By: #### 1 7354372 ####[address] [address] Urobilinogen Qn (U) 0.2 {Munir'U}/dL Normal 0.0-1.0 [facility] Comment on above: Performed By: #### 1 4691698 ####[address] [address] WBC Auto Ql (U) Negative Normal Negative [facility] Comment on above: Performed By: #### 1 2707582 ####[facility] [address] [place] [address] WBC LM.HPF (Urine sed) [#/Area] 0-5 Normal 0-5 [facility] Comment on above: Performed By: #### 1 6319965 ####[facility] [address] [place] [address] URINALYSISOrdered By: Kaye brito on 10-19-2022 Bilirubin [...] AM) Normal Negative [facility] UA Auto SS [place].plasma/Lith ium.RBC (Bld) [Mass ratio] 0-3 /HPF Normal [...] [facility] UA Auto SS Urobilinogen Qn (U) 0.6881083 {Munir'U}/dL Normal 0.0 - 1.0 EU/dL [facility] UA Auto SS WBC Auto Ql (U) Negative (10/19/22 9:18 AM) Normal Negative [facility] UA Auto SS WBC LM.HPF (Urine sed) [#/Area] 0-5 /HPF Normal 0-5/HPF [facility] UA Auto SS XR Chest 2 Viewson 3 XR Chest 2 Views Normal [facility] eGFROrdered By: SYSTEM Grid2HomeLesia M on 10-19-2022 GFR/1.73 sq M.predicted among non-blacks MDRD (S/P/Bld) [Vol rate/Area] 100 mL/min/1.73 m2 Normal >=59 [facility] Chem S Comment on above: Order Comment: Order added by Discern Expert. Result Comment: Director Revenue alejandra kidney disease could be indicated at eGFR's of less than 60 mL/min/1.73m2. Kidney failure is indicated at less than 15 mL/min/1.73m2. Performed By: #### 2 330218, 2432881, 39796599, 4913673, 4392323, 15129630, 2167686 ####[facility] [address] [place] [address] [facility] HEALTH[facility] 10-18-2022 ALLIED HEALTH HNO ID: [id number] Author: Karina Gonzales Tech Service: ? Author [...] PERIPHERAL IV DATA: Inpatient - refer to [facility] documentation RADIOLOGY DEPARTMENT: CT; Exam(s) Completed: Abdomen/Pelvis SIGNATURE: Tessa Griffin PATIENT NAME: Abbey Garcia DATE: October 18, 2022 TIME: 10:07 AM Normal [facility] CBC W Auto Differential pane l (Bld)on 10-18-2022 Basophils (Bld) [#/Vol] 0.03 10*3/uL Normal <0.11 [facility] Comment on above: Order Comment: Speci men Type: BLOOD SPECIMEN Ordering Facility: [facility] Address: [address] [address] Performed By: #### 5 7021-8 #### [facility] CLIA [id number] [address] [place] [address] STATES OF [facility] Basophils/100 WBC (Bld) 0.8 % Normal [facility] Comment on above: Order Comment: Speci men Type: BLOOD SPECIMEN Ordering Facility: [facility] Address: [address] [address] Performed By: #### 5 7021-8 #### [facility] CLIA [id number] [address] [place] [address] [place] Differential cell count method Nom (Bld) Auto Normal [facility] Comment on above: Order Comment: Speci men Type: BLOOD SPECIMEN Ordering Facility: [facility] Address: [address] [address] Performed By: #### 5 7021-8 #### [facility] CLIA [id number] [address] Eosinophils (Bld) [#/Vol] 0.14 10*3/uL Normal <0.46 [facility] Comment on above: Order Comment: Speci men Type: BLOOD SPECIMEN Ordering Facility: [facility] Address: [address] [place] [address] Performed By: #### 5 7021-8 #### [facility] CLIA [id number] [address] Eosinophils/100 WBC (Bld) 3.7 % Normal [facility] Comment on above: Order Comment: Speci men Type: BLOOD SPECIMEN Ordering Facility: [facility] Address: [address] [place] [address] Performed By: #### 5 7021-8 #### [facility] CLIA [id number] [address] Erythrocyte distribution width (RBC) [Ratio] 12.7 % Normal 11.5-15.0 [facility] Comment on above: Order Comment: Speci men Type: BLOOD SPECIMEN Ordering Facility: [facility] Address: [address] [place] [address] Performed By: #### 5 7021-8 #### [facility] CLIA [id number] [address] Hematocrit (Bld) [Volume fraction] 38.5 % Normal 36.0-46.0 [facility] Comment on above: Order Comment: Speci men Type: BLOOD SPECIMEN Ordering Facility: [facility] Address: [address] [place] [address] Performed By: #### 5 7021-8 #### [facility] CLIA [id number] [address] [place] Hemoglobin (Bld) [Mass/Vol] 12.9 g/dL Normal 11.5-15.5 [facility] Comment on above: Order Comment: Speci men Type: BLOOD SPECIMEN Ordering Facility: [facility] Address: [address] [place] [address] Performed By: #### 5 7021-8 #### [facility] CLIA [id number] [address] [place] Immature granulocytes (Bld) [#/Vol] 10*3/uL Normal <0.10 [facility] Comment on above: Order Comment: Speci men Type: BLOOD SPECIMEN Ordering Facility: [facility] Address: [address] [place] [address] Performed By: #### 5 7021-8 #### [facility] CLIA [id number] [address] Immature granulocytes/100 WBC (Bld) 0.3 % Normal [facility] Comment on above: Order Comment: Speci men Type: BLOOD SPECIMEN Ordering Facility: [facility] Address: [address] [place] [address] Performed By: #### 5 7021-8 #### [facility] CLIA [id number] [address] [place] Lymphocytes (Bld) [#/Vol] 1.66 10*3/uL Normal 1.00-4.00 [facility] Comment on above: Order Comment: Speci men Type: BLOOD SPECIMEN Ordering Facility: [facility] Address: [address] [address] Performed By: #### 5 7021-8 #### [facility] CLIA [id number] [address] OF [place] Lymphocytes/100 WBC (Bld) 43.7 % Normal [facility] Comment on above: Order Comment: Speci men Type: BLOOD SPECIMEN Ordering Facility: [facility] Address: [address] [place] [address] Performed By: #### 5 7021-8 #### [facility] CLIA [id number] [address] MCH (RBC) [Entitic mass] 30.2 pg Normal 26.0-34.0 [facility] Comment on above: Order Comment: Speci men Type: BLOOD SPECIMEN Ordering Facility: [facility] Address: [address] [place] [address] Performed By: #### 5 7021-8 #### [facility] CLIA [id number] [address] MCHC (RBC) [Mass/Vol] 33.5 g/dL Normal 30.5-36.0 [facility] Comment on above: Order Comment: Speci men Type: BLOOD SPECIMEN Ordering Facility: [facility] Address: [address] [place] [address] Performed By: #### 5 7021-8 #### [facility] CLIA [id number] [address] MCV (RBC) [Entitic vol] 90.2 fL Normal 80.0-100.0 [facility] Comment on above: Order Comment: Speci men Type: BLOOD SPECIMEN Ordering Facility: [facility] Address: [address] [place] [address] Performed By: #### 5 7021-8 #### [facility] CLIA [id number] [address] Monocytes (Bld) [#/Vol] 0.28 10*3/uL Normal <0.87 [facility] Comment on above: Order Comment: Speci men Type: BLOOD SPECIMEN Ordering Facility: [facility] Address: [address] [place] [address] Performed By: #### 5 7021-8 #### [facility] CLIA [id number] [address] Monocytes/100 WBC (Bld) 7.4 % Normal [facility] Comment on above: Order Comment: Speci men Type: BLOOD SPECIMEN Ordering Facility: [facility] Address: [address] [address] Performed By: #### 5 7021-8 #### [facility] CLIA [id number] [address] [place] Neutrophils (Bld) [#/Vol] 1.68 10*3/uL Normal 1.45-7.50 [facility] Comment on above: Order Comment: Speci men Type: BLOOD SPECIMEN Ordering Facility: [facility] Address: [address] [address] Performed By: #### 5 7021-8 #### [facility] CLIA [id number] [address] Neutrophils/100 WBC (Bld) 44.1 % Normal [facility] Comment on above: Order Comment: Speci men Type: BLOOD SPECIMEN Ordering Facility: [facility] Address: [address] [address] Performed By: #### 5 7021-8 #### [facility] CLIA [id number] [address] [place] Nucleated RBC (Bld) [#/Vol] 10*3/uL Normal <0.01 [facility] Comment on above: Order Comment: Speci men Type: BLOOD SPECIMEN Ordering Facility: [facility] Address: [address] [address] Performed By: #### 5 7021-8 #### [facility] CLIA [id number] [address] Nucleated RBC/100 WBC (Bld) [Ratio] 0.0 /100 WBC Normal [facility] Comment on above: Order Comment: Speci men Type: BLOOD SPECIMEN Ordering Facility: [facility] Address: [address] [place] [address] Performed By: #### 5 7021-8 #### [facility] CLIA [id number] [address] [place] Platelet mean volume (Bld) [Entitic vol] 11.1 fL Normal 9.0-12.7 [facility] Comment on above: Order Comment: Speci men Type: BLOOD SPECIMEN Ordering Facility: [facility] Address: [address] [place] [address] Performed By: #### 5 7021-8 #### [facility] CLIA [id number] [address] Platelets (Bld) [#/Vol] 231 10*3/uL Normal 150-400 [facility] Comment on above: Order Comment: Speci men Type: BLOOD SPECIMEN Ordering Facility: [facility] Address: [address] [place] [address] Performed By: #### 5 7021-8 #### [facility] CLIA [id number] [address] RBC (Bld) [#/Vol] 4.27 10*6/uL Normal 3.90-5.20 [facility] Comment on above: Order Comment: Speci men Type: BLOOD SPECIMEN Ordering Facility: [facility] Address: [address] [address] Performed By: #### 5 7021-8 #### [facility] CLIA [id number] [address] WBC (Bld) [#/Vol] 3.80 10*3/uL Normal 3.70-11.00 [facility] Comment on above: Order Comment: Speci men Type: BLOOD SPECIMEN Ordering Facility: [facility] Address: [address] [place] [address] Performed By: #### 5 7021-8 #### [facility] CLIA [id number] [address] OF [facility] CT ABD/PEL WO IVCONon 2022 CT ABD/PEL WO IVCON * * *Final Report* * * DATE OF EXAM: Oct 18 2022 10:07AM [facility] 0531 - CT ABD/PEL WO IVCON [...] Tissues: No acute abnormality. Lower thorax: Unremarkable. Comfort Station Attendant (topogram) images: No additional findings. IMPRESSION: Stable findings as detailed above. No acute intra-abdominal or pelvic process seen. Curator Herbarium: PSCB Transcribe Date/Time: Oct 18 2022 10:14A Dictated by : ADELA FISHER MD This examination was interpreted and the report reviewed and electronically signed by: ADELA FISHER MD on Oct 18 2022 10:21AM EST [id number] Normal [facility] Comprehensive metabolic 2000 panelon 10-18-2022 Albumin [Mass/Vol] 4.3 g/dL Normal 3.9-4.9 [facility] Comment on above: Order Comment: Speci men Type: BLOOD SPECIMEN Ordering Facility: [facility] Address: [address] [place], [place] [address] Performed By: #### 2 4323-8, 3040-3 #### [facility] CLIA [id number] [address] ALP [Catalytic activity/Vol] 73 U/L Normal 34-123 [facility] Comment on above: Order Comment: Speci men Type: BLOOD SPECIMEN Ordering Facility: [facility] Address: [address] [place] [address] Performed By: #### 2 4323-8, 0-3 #### [facility] CLIA [id number] [address] ALT With P-5'-P [Catalytic activity/Vol] 24 U/L Normal 7-38 [facility] Comment on above: Order Comment: Speci men Type: BLOOD SPECIMEN Ordering Facility: [facility] Address: [address] [place] [address] Performed By: #### 2 4328, 3039-3 #### [facility] CLIA [id number] [address] Anion gap [Moles/Vol] 8 mmol/L Low 9-18 [facility] Comment on above: Order Comment: Speci men Type: BLOOD SPECIMEN Ordering Facility: [facility] Address: [address] [place] [address] Performed By: #### 2 4323-8, 0-3 #### [facility] CLIA [id number] [address] AST With P-5'-P [Catalytic activity/Vol] 36 U/L High 13-35 [facility] Comment on above: Order Comment: Speci men Type: BLOOD SPECIMEN Ordering Facility: [facility] Address: [address] [place] [address] Performed By: #### 2 4323-8, 3040-3 #### [facility] CLIA [id number] [address] Bilirubin [Mass/Vol] 0.4 mg/dL Normal 0.2-1.3 [facility] Comment on above: Order Comment: Speci men Type: BLOOD SPECIMEN Ordering Facility: [facility] Address: [address] [address] Performed By: #### 2 4323-8, 0-3 #### [facility] CLIA [id number] [address] [place] Calcium [Mass/Vol] 8.9 mg/dL Normal 8.5-10.2 [facility] Comment on above: Order Comment: Speci men Type: BLOOD SPECIMEN Ordering Facility: [facility] Address: [address] [place] [address] Performed By: #### 2 432-8, 3039-3 #### [facility] CLIA [id number] 1 [place] [address] [place] Chloride [Moles/Vol] 108 mmol/L High 97-105 [facility] Comment on above: Order Comment: Speci men Type: BLOOD SPECIMEN Ordering Facility: [facility] Address: [address] [address] Performed By: #### 2 4323-8, 3039-3 #### [facility] CLIA [id number] [address] [place] CO2 [Moles/Vol] 26 mmol/L Normal 22-30 [facility] Comment on above: Order Comment: Speci men Type: BLOOD SPECIMEN Ordering Facility: [facility] Address: [address] [address] Performed By: #### 2 432-8, 0-3 #### [facility] CLIA [id number] [address] [place] Creatinine [Mass/Vol] 0.81 mg/dL Normal 0.58-0.96 [facility] Comment on above: Order Comment: Speci men Type: BLOOD SPECIMEN Ordering Facility: [facility] Address: [address] [address] Performed By: #### 2 4323-8, 3040-3 #### [facility] CLIA [id number] 1 [place] [address] [place] Creatinine and Glomerular filtration rate.predicted panel (S/P/Bld) 98 mL/min/1.73m??? Normal >=60 [facility] Comment on above: Order Comment: Geraldo elida Type: BLOOD SPECIMEN Ordering Facility: [facility] Address: [address] [place] [address] Result Comment: Jessica mated Glomerular Filtration Rate [...] Performed By: #### 2 4323-8, 3039-3 #### [facility] CLIA [id number] 1 [place] [address] [place] Glucose [Mass/Vol] 85 mg/dL Normal 74-99 [facility] Comment on above: Order Comment: Geraldo marrero Type: BLOOD SPECIMEN Ordering Facility: [facility] Address: [address] [place] [address] Result Comment: The [place] [employer] (ADA) provides guidance for cutoff [...] Standards of Medical Care in Diabetes 2016, [place] [employer]. Diabetes Care. 2016.39(Suppl 1). Performed By: #### 2 4323-8, 0-3 #### [facility] CLIA [id number] 1 [place] [address] [place] Potassium [Moles/Vol] 4.3 mmol/L Normal 3.7-5.1 [facility] Comment on above: Order Comment: Speci men Type: BLOOD SPECIMEN Ordering Facility: [facility] Address: [address] [place] [address] Performed By: #### 2 4323-8, 3040-3 #### [facility] CLIA [id number] [address] [place] Protein [Mass/Vol] 6.4 g/dL Normal 6.3-8.0 [facility] Comment on above: Order Comment: Speci men Type: BLOOD SPECIMEN Ordering Facility: [facility] Address: [address] [place] [address] Performed By: #### 2 4323-8, 0-3 #### [facility] CLIA [id number] [address] STATES OF [facility] Sodium [Moles/Vol] 142 mmol/L Normal 136-144 [facility] Comment on above: Order Comment: Speci men Type: BLOOD SPECIMEN Ordering Facility: [facility] Address: [address] [place] [address] Performed By: #### 2 4323-8, 0-3 #### [facility] CLIA [id number] [address] STATES [facility] Urea nitrogen [Mass/Vol] 8 mg/dL Normal 7-21 [facility] Comment on above: Order Comment: Speci men Type: BLOOD SPECIMEN Ordering Facility: [facility] Address: [address] [place] [address] Performed By: #### 2 4323-8, 3040-3 #### [facility] CLIA [id number] [address] [place] ED NOTEon 10-18-2022 ED NOTE HNO ID: [id number] Author: Serafin Curiel RN Service: ? Author Type: Registered Nurse Type: ED Notes Filed: 10/18/2022 10:46 AM Note Text: Provider previously at bedside discussing results/findings. Discharge instructions, follow up recommendations and medications reviewed with patient. Pt advised to return to ED with worsening symptoms. Pt verbalizes understanding. Stable and ambulatory upon d/c Normal [facility] ED NOTE HNO ID: [id number] Author: Alannah Carter RN Service: ? Author Type: Registered Nurse Type: ED Notes Filed: 10/18/2022 7:53 AM Note Text: Bed: 26-ED Expected date: Expected time: Means of arrival: Comments: TRIAGE Normal [facility] ED PROV NOTEon 10-18-2022 ED PROV NOTE HNO ID: [id number] Author: Alverto Barrett MD Service: Emergency Medicine [...] Musculoskeletal: Gen (more content not included)... Normal [facility] Lipase SerPl-cCncon 10-19-19 23 Lipase [Catalytic activity/Vol] 34 U/L Normal [facility] Comment on above: Order Comment: Speci men Type: BLOOD SPECIMEN Ordering Facility[facility] Address: [address] [place] [address] Performed By: #### 2 4323-8, 3040-3 #### [facility] CLIA [id number] [address] [place] [address] [place] Urinalysis complete panel (U )on 10-18-2022 Bilirubin Ql (U) Negative Normal Negative [facility] Comment on above: Order Comment: Speci men Type: URINE SPECIMEN Ordering Facility: [facility] Address: [address] [place] [address] Performed By: #### 2 4356-8 #### [facility] CLIA [id number] [address] [place] [address] [place] Clarity (Unsp spec) Clear Normal Clear [facility] Comment on above: Order Comment: Speci men Type: URINE SPECIMEN Ordering Facility: [facility] Address: [address] [place] [address] Performed By: #### 2 4356-8 #### [facility] CLIA [id number] [address] [place] [address] [place] Color (U) Light Yellow Normal yellow [facility] Comment on above: Order Comment: Speci men Type: URINE SPECIMEN Ordering Facility: [facility] Address: [address] [place] [address] Performed By: #### 2 4356-8 #### [facility] CLIA [id number] [address] Epithelial cells LM.HPF (Urine sed) [#/Area] Few Normal [facility] Comment on above: Order Comment: Speci men Type: URINE SPECIMEN Ordering Facility: [facility] Address: [address] [place] [address] Performed By: #### 2 4356-8 #### [facility] CLIA [id number] [address] Glucose Test strip (U) [Mass/Vol] Negative Normal Trace, Negative [facility] Comment on above: Order Comment: Speci men Type: URINE SPECIMEN Ordering Facility: [facility] Address: [address] [place] [address] Performed By: #### 2 4356-8 #### [facility] CLIA [id number] [address] Hemoglobin Ql (U) Negative Normal Negative, Trace [facility] Comment on above: Order Comment: Speci men Type: URINE SPECIMEN Ordering Facility: [facility] Address: [address] [place] [address] Performed By: #### 2 4356-8 #### [facility] CLIA [id number] [address] [place] Ketones Ql (U) Negative Normal Negative, Trace [facility] Comment on above: Order Comment: Speci men Type: URINE SPECIMEN Ordering Facility[facility] Address: [address] [place] [address] Performed By: #### 2 4356-8 #### [facility] CLIA [id number] [address] [place] Leukocyte esterase Test strip Ql (U) Negative Normal Negative, 25 Patito/uL [facility] Comment on above: Order Comment: Speci men Type: URINE SPECIMEN Ordering Facility: [facility] Address: [address] [place] [address] Performed By: #### 2 4356-8 #### [facility] CLIA [id number] [address] [place] Nitrite Ql (U) Negative Normal Negative [facility] Comment on above: Order Comment: Speci men Type: URINE SPECIMEN Ordering Facility: [facility] Address: [address] [place] [address] Performed By: #### 2 4356-8 #### [facility] CLIA [id number] [address] [place] pH (U) 7.5 [pH] Normal 5.0-8.0 [facility] Comment on above: Order Comment: Speci men Type: URINE SPECIMEN Ordering Facility: [facility] Address: [address] [place] [address] Performed By: #### 2 4356-8 #### [facility] CLIA [id number] [address] [place] Protein (U) [Mass/Vol] Negative Normal Trace, Negative [facility] Comment on above: Order Comment: Speci men Type: URINE SPECIMEN Ordering [facility] Address: [address] [place] [address] Performed By: #### 2 4356-8 #### [facility] CLIA [id number] [address] [place] RBC LM.HPF (Urine sed) [#/Area] 0-3 /HPF Normal 0-3 /HPF [facility] Comment on above: Order Comment: Speci men Type: URINE SPECIMEN Ordering Facility: [facility] Address: [address] [place] [address] Performed By: #### 2 4356-8 #### [facility] CLIA [id number] [address] [place] Specific gravity (U) [Rel density] 1.008 Normal 1.005-1.030 [facility] Comment on above: Order Comment: Speci men Type: URINE SPECIMEN Ordering Facility[facility] Address: [address] [place] [address] Performed By: #### 2 4356-8 #### [facility] CLIA [id number] [address] Urobilinogen Ql (U) Normal Normal Negative [facility] Comment on above: Order Comment: Speci men Type: URINE SPECIMEN Ordering Facility: [facility] Address: [address] [place] [address] Performed By: #### 2 4356-8 #### [facility] CLIA [id number] [address] WBC LM.HPF (Urine sed) [#/Area] 0-5 /HPF Normal 0-5 /HPF [facility] Comment on above: Order Comment: Speci men Type: URINE SPECIMEN Ordering Facility: [facility] Address: [address] [place] [address] Performed By: #### 2 4356-8 #### [facility] CLIA [id number] [address] Urinalysis w/ Microon 2022 Bilirubin, SemiQt,Ur Negative Normal NEG [facility] Comment on above: Performed By: #### U AMIC #### [facility] [address] [place] [address] Copy Worker: Baldomero Espinoza MD Blood, Urine Negative Normal NEG [facility] Comment on above: Performed By: #### U AMIC #### [facility] [address] [place] [address] Copy Worker: Baldomero Espinoza MD Clarity (U) Clear Normal CLEAR [facility] Comment on above: Performed By: #### U AMIC #### [facility] [address] [place] [address] Copy Worker: Baldomero Espinoza MD Color (U) Yellow Normal YEL [facility] Comment on above: Performed By: #### U AMIC #### [facility] [address] [place], [place] [id number] Copy Worker: Baldomero Espinoza MD Epithelial cells LM Ql (Urine sed) None Normal 0-[address] [facility] Comment on above: Performed By: #### U AMIC #### [facility] [address] [place], [place] [address] Copy Worker: Baldomero Espinoza MD Glucose Ql (U) Negative Normal NEG [facility] Comment on above: Performed By: #### U AMIC #### [facility] [address] [place], [place] [address] Copy Worker: Baldomero Espinoza MD Ketones Ql (U) Negative Normal NEG [facility] Comment on above: Performed By: #### U AMIC #### [facility] [address] [place], [place] [id number] Copy Worker: Baldomero Espinoza MD Leukocyte esterase Test strip Ql (U) Negative Normal NEG [facility] Comment on above: Performed By: #### U AMIC #### [facility] [address] [place] [address] [place], [place] [id number] Copy Worker: Baldomero Espinoza MD Nitrite,Ur Negative Normal NEG [facility] Comment on above: Performed By: #### U AMIC #### [facility] [address] [place], [place] 7[address] Copy Worker: Baldomero Espinoza MD PH,Ur 6.5 Normal 5.0-9.[address] [facility] Comment on above: Performed By: #### U AMIC #### [facility] [address] [place], [place] [address] Copy Worker: Baldomero Espinoza MD Protein Ql (U) Negative Normal NEG [facility] Comment on above: Performed By: #### U AMIC #### [facility] [address] [place], [place] [address] Copy Worker: Baldomero Espinoza MD Spec. [place],Ur 1.020 Normal 1.010-1.020 [facility] Comment on above: Performed By: #### U AMIC #### [facility] [address] [place] [address] Copy Worker: Baldomero Espinoza MD Urine RBC's None Normal 0-[address] [facility] Comment on above: Performed By: #### U AMIC #### [facility] [address] [place] [id number] Copy Worker: Baldomero Espinoza MD Urine WBC's None Normal 0-[address] [facility] Comment on above: Performed By: #### U AMIC #### [facility] [address] [place] [id number] Copy Worker: Baldomero Espinoza MD Urobilinogen,Ur Normal Normal 0.0-1.0 [facility] Comment on above: Performed By: #### U AMIC #### [facility] [address] [place] [id number] Copy Worker: Baldomero Espinoza MD [facility] 10-08-2022 Forms [id number] 26#1.00CD:127 Normal [facility] Ambulatory Visit Summaryon 0 10-07-2022 Ambulatory Visit Summary Normal [address] [facility] [place] [address]- \.br\ Medications\.br\ What How Much When Why [...] Metabolic syndrome\.br\ PCOS- polycystic ovary syndrome\.br\ \.br\ [facility] Family Medicine Office/Clini c Noteon 10-07-2022 Family Medicine Office/Clinic Note Normal [facility] Comment on above: Result Comment: Elec tronically Signed By: Jaquan Paula\.br\Date and Time Signed: 10/07/22 16:37 EDT Operative Reporton 3 Operative Report [id number] 4C#1.00CD:127 Normal [facility] C3 COMPLEMENT [facility] 06-13-19 Complement C3 [Mass/Vol] 140 mg/dL 86 - 166 mg/dL [facility] C4 COMPLEMENT BLDon 06-13-19 Complement C4 [Mass/Vol] 25 mg/dL 13 - 46 mg/dL [facility] CBC W Auto Differential pane l [...] [#/Vol] 4.46 10*6/uL 3.90 - 5.20 m/uL [facility] WBC (Bld) [#/Vol] 4.56 10*3/uL 3.70 - 11.00 k/u L [facility] CK CREATINE KINASEon 023 CK [Catalytic activity/Vol] 44 U/L 42 - 196 U/L [facility] Comprehensive metabolic 2000 panelon 06-12-2022 Albumin [Mass/Vol] 4.3 g/dL 3.9 - 4.9 g/dL [facility] ALP [Catalytic activity/Vol] 64 U/L 34 - 123 U/L [facility] ALT [Catalytic activity/Vol] 20 U/L 7 - 38 U/L [facility] Anion gap [Moles/Vol] 10 mmol/L 9 - 18 mmol/L [facility] AST [Catalytic activity/Vol] 33 U/L 13 - 35 U/L [facility] Bilirubin [Mass/Vol] 0.4 mg/dL 0.2 - 1.3 mg/dL [facility] Calcium [Mass/Vol] 9.3 mg/dL 8.5 - 10.2 mg/dL [facility] Chloride [Moles/Vol] 106 mmol/L High 97 - 105 mmol/L [facility] CO2 [Moles/Vol] 23 mmol/L 22 - 30 mmol/L [facility] Creatinine [Mass/Vol] 0.76 mg/dL 0.58 - 0.96 mg/dL [facility] Estimated Glomerular Filtration Rate 106 mL/min/1.73m >=60 mL/min/1.73m [facility] Glucose [Mass/Vol] 79 mg/dL 74 - 99 mg/dL [facility] Potassium [Moles/Vol] 4.0 mmol/L 3.7 - 5.1 mmol/L [facility] Protein [Mass/Vol] 6.9 g/dL 6.3 - 8.0 g/dL [facility] Sodium [Moles/Vol] 139 mmol/L 136 - 144 mmol/L [facility] Urea nitrogen [Mass/Vol] 9 mg/dL 7 - 21 mg/dL [facility] FERRITIN BLDon 06-12-2022 Ferritin [Mass/Vol] 36.6 ng/mL 14.7 - 205.1 ng/ mL [facility] FOLATE SERUMon 06-12-2022 Folate [Mass/Vol] 6.8 ng/mL >4.7 ng/mL [facility] Iron and Iron binding capaci ty panelon 06-12-2022 Iron [Mass/Vol] 100 ug/dL 41 - 186 ug/dL [facility] Iron binding capacity [Mass/Vol] 332 ug/dL 232 - 386 ug/dL [facility] Iron/TIBC [Molar ratio] 30.1 % 15.0 - 57.0 % [facility] MAGNESIUM BLDon 06-12-2022 Magnesium [Mass/Vol] 2.2 mg/dL 1.7 - 2.3 mg/dL [facility] RHEUMATOID FACTOR BLon 06-12 Rheumatoid factor Qn <16 IU/mL [facility] VITAMIN B12 BLOODon 06-13-19 Cobalamin (Vitamin B12) [Mass/Vol] 854 pg/mL 232 - 1,245 pg/mL [facility] CHEMISTRYOrdered By: SYSTEM SYSTEM on 06-10-2022 [...] rate/Area] 100 mL/min/1.73 m2 Normal >=59mL/min/1.73 m2 [facility] Chem S Glucose [Mass/Vol] 83 mg/dL Normal [...] E12/L Normal 4.3 - 5.9 E12/L [facility]eAutoSS Sed Rate Automated 8 mm/h Normal 0 - 34 mm/hr [facility] WBC corrected for nucl RBC Auto (Bld) [#/Vol] 5.8 E9/L Normal 4.0 - 11.0 E9/L [facility] AMYLASEon 06-09-2022 Amylase [Catalytic activity/Vol] 41 U/L Normal 25-115 [facility] Comment on above: Performed By: #### G RUBIN, LIPID #### [facility] [address] [address] [address] Stephan Tavares CBC AUTO DIFFon 06-09-2022 BASO # 0.0 103/ul Normal 0.0-0.1 [facility] Comment on above: Performed By: #### G RUBIN, LIPID #### [facility] [address] [place] [address] Dr. Stephan Tavares Basophils/100 WBC (Bld) 0.7 % Normal 0.2-2.0 [facility] Comment on above: Performed By: #### G RUBIN, LIPID #### [facility] [address] [place] [address] Dr. Stephan Tavares EO # 0.1 103/ul Normal 0.0-0.7 [facility] Comment on above: Performed By: #### G RUBIN, LIPID #### [facility] [address] [place] [address] Dr. Stephan Tavares Eosinophils/100 WBC (Bld) 1.5 % Normal 0.9-7.0 [facility] Comment on above: Performed By: #### G RUBIN, LIPID #### [facility] [address] [place] [address] Dr. Stephan Tavares Erythrocyte distribution width (RBC) [Ratio] 13.1 % Normal 11.0-15.0 [facility] Comment on above: Performed By: #### G RUBIN, LIPID #### [facility] [address] [place] [address] Dr. Stephan Tavares Hematocrit (Bld) [Volume fraction] 43.2 % Normal 36.0-48.0 [facility] Comment on above: Performed By: #### G RUBIN, LIPID #### [facility] [address] [place] [address] Dr. Stephan Tavares Hemoglobin (Bld) [Mass/Vol] 14.6 g/dL Normal 12.0-16.0 [facility] Comment on above: Performed By: #### G RUBIN, LIPID #### [facility] [address] [place] [address] Dr. Stephan Tavares IG # 0.01 10e3/ul Normal 0.00-0.03 [facility] Comment on above: Performed By: #### G RUBIN, LIPID #### [facility] [address] [place] [address] Dr. Stephan Tavares IG % 0.2 % Normal 0.0-0.5 [facility] Comment on above: Performed By: #### G RUBIN, LIPID #### [facility] [address] [address] [address] Stephan Tavares LYMPH # 2.1 103/ul Normal 1.2-3.8 [facility] Comment on above: Performed By: #### G RUBIN, LIPID #### [facility] [address] [address] [address] Stephan Tavares Lymphocytes/100 WBC (Bld) 39.1 % Normal 20.5-60.0 [facility] Comment on above: Performed By: #### G RUBIN, LIPID #### [facility] [address] [address] [address] Stephan Tavares MANUAL DIFF REQ NO Normal [facility] Comment on above: Performed By: #### G RUBIN, LIPID #### [facility] [address] [address] [address] Stephan Tavares MCH (RBC) [Entitic mass] 30.2 pg Normal 26.7-34.0 [facility] Comment on above: Performed By: #### G RUBIN, LIPID #### [facility] [address] [address] [address] Stephan Tavares MCHC (RBC) [Mass/Vol] 33.8 g/dL Normal 29.9-35.2 [facility] Comment on above: Performed By: #### G RUBIN, LIPID #### [facility] [address] [address] [address] Stephan Tavares MCV (RBC) [Entitic vol] 89.3 fL Normal 81.0-99.0 [facility] Comment on above: Performed By: #### G RUBIN, LIPID #### [facility] [address] [address] [address] Stephan Tavares MONO # 0.3 103/ul Normal 0.3-0.8 [facility] Comment on above: Performed By: #### G RUBIN, LIPID #### [facility] [address] [address] [address] Stephan Tavares Monocytes/100 WBC (Bld) 5.2 % Normal 1.7-12.0 [facility] Comment on above: Performed By: #### G RUBNI, LIPID #### [facility] [address] [address] [address] Stephan Tavares NEUT # 2.9 103/ul Normal 1.4-6.5 [facility] Comment on above: Performed By: #### G RUBIN, LIPID #### [facility] [address] [address] [address] Stephan Tavares Neutrophils/100 WBC (Bld) 53.3 % Normal 43.0-75.0 [facility] Comment on above: Performed By: #### G RUBIN, LIPID #### [facility] [address] [address] [address] Stephan Tavares Platelet mean volume (Bld) [Entitic vol] 10.9 fL Normal 9.5-13.5 [facility] Comment on above: Performed By: #### G RUBIN, LIPID #### [facility] [address] [address] [address] Stephan Tavares PLT 271 103/ul Normal 150-450 [facility] Comment on above: Performed By: #### G RUBIN, LIPID #### [facility] [address] [address] [address] Stephan Tavares RBC 4.84 106/ul Normal 4.20-5.40 [facility] Comment on above: Performed By: #### G RUBIN, LIPID #### [facility] [address] [address] [address] tSephan Tavares WBC 5.4 103/ul Normal 4.0-11.0 [facility] Comment on above: Performed By: #### G RUBIN, LIPID #### [facility] [address] [place] [address] ABD/PELVIS WO CONon [...] PHAM Date: 2022-06-09 16:14 Normal [facility] ER URINE PROFILEon 3 Bilirubin Ql (U) Negative Normal NEGATIVE [facility] Comment on above: Performed By: #### G RUBIN, LIPID #### [facility] [address] [place] [address] Dr. Stephan Tavares Clarity (U) CLEAR Normal CLEAR [facility] Comment on above: Performed By: #### G RUBIN, LIPID #### [facility] [address] [place] [address] Dr. Stephan Tavares Color (U) LT. YELLOW Normal YELLOW [facility] Comment on above: Performed By: #### G RUBIN, LIPID #### [facility] [address] [place] [address] Dr. Stephan KUMAR A micrscopic examination will be performed if indicated. Normal [facility] Comment on above: Performed By: #### G RUBIN, LIPID #### [facility] [address] [place] [address] Dr. Stephan Tavares Glucose Ql (U) Negative Normal NEGATIVE [facility] Comment on above: Performed By: #### G RUBIN, LIPID #### [facility] [address] [address] [address] Stephan Tavares Hemoglobin Ql (U) Negative Normal NEGATIVE [facility] Comment on above: Performed By: #### G RUBIN, LIPID #### [facility] [address] [address] [address] Stephan Tavares Ketones Ql (U) Negative Normal NEGATIVE [facility] Comment on above: Performed By: #### G RUBIN, LIPID #### [facility] [address] [address] [address] Stephan Tavares LEUKOCYTES Negative Normal NEGATIVE [facility] Comment on above: Performed By: #### G RUBIN, LIPID #### [facility] [facility] [address] [address] [address] Stephan Tavares Nitrite Ql (U) Negative Normal NEGATIVE [facility] Comment on above: Performed By: #### G RUBIN, LIPID #### [facility] [address] [address] [address] Stephan Tavares pH (U) 7.5 [pH] Normal 5-9 [facility] Comment on above: Performed By: #### G RUBIN, LIPID #### [facility] [address] [address] [address] Stephan Tavares SPEC GRAVITY 1.015 Normal 1.005-<=1.025 [facility] Comment on above: Performed By: #### G RUBIN, LIPID #### [facility] [address] [place] [address] Dr. Stephan Tavares UA PROTEIN Negative Normal NEGATIVE/ TRACE [facility] Comment on above: Performed By: #### G RUBIN, LIPID #### [facility] [address] [place] [address] Dr. Stephan Tavares UR MICRO IND NOT INDICATED Normal [facility] Comment on above: Performed By: #### G RUBIN, LIPID #### [facility] [address] [address] [address] Stephan Tavares Urobilinogen Qn (U) 0.2 {Munir'U}/dL Normal 0.2 - 1. 0 [facility] Comment on above: Performed By: #### G RUBIN, LIPID #### [facility] [address] [place] [address] Dr. Stephan Tavares LIPASEon 06-09-2022 Lipase [Catalytic activity/Vol] 120.0 U/L Normal 73.0-393.0 [facility] Comment on above: Performed By: #### G RUBIN, LIPID #### [facility] [address] [place] [address] Dr. Stephan Tavares PROF 14(COMP METB)on 023 Albumin [Mass/Vol] 4.4 g/dL Normal 3.4-5.0 [facility] Comment on above: Performed By: #### G RUBIN, LIPID #### [facility] [address] [place] [address] Dr. Stephan Tavares Albumin/Globulin [Mass ratio] 1.1 {ratio} Normal [facility] Comment on above: Performed By: #### G RUBIN, LIPID #### [facility] [address] [place] [address] Dr. Stephan Tavares ALP [Catalytic activity/Vol] 74 U/L Normal 46-116 [facility] Comment on above: Performed By: #### G RUBIN, LIPID #### [facility] [address] [place] [address] Dr. Stephan Tavares ALT [Catalytic activity/Vol] 40 U/L Normal 14-59 [facility] Comment on above: Performed By: #### G RUBIN, LIPID #### [facility] [address] [place] [address] Dr. Stephan Tavares Anion gap [Moles/Vol] 16.5 mmol/L Normal [facility] Comment on above: Performed By: #### G RUBIN, LIPID #### [facility] [address] [place] [address] Dr. Stephan Tavares AST [Catalytic activity/Vol] 45 U/L Critically high 15-37 [facility] Comment on above: Performed By: #### G RUBIN, LIPID #### [facility] [address] [address] [address] Stephan Tavares Bilirubin [Mass/Vol] 0.5 mg/dL Normal 0.2-1.0 [facility] Comment on above: Performed By: #### G RUBIN, LIPID #### [facility] [address] [address] [address] Stephan Tavares Calcium [Mass/Vol] 9.3 mg/dL Normal 8.5-10.1 [facility] Comment on above: Performed By: #### G RUBIN, LIPID #### [facility] [address] [address] [address] Stephan Tavares Chloride [Moles/Vol] 103 mmol/L Normal 98-107 [facility] Comment on above: Performed By: #### G RUBIN, LIPID #### [facility] [address] [address] [address] Stephan Tavares CO2 [Moles/Vol] 24.9 mmol/L Normal 21.0-32.0 [facility] Comment on above: Performed By: #### G RUBIN, LIPID #### [facility] [address] [address] [address] Stephan Tavares Creatinine [Mass/Vol] 0.88 mg/dL Normal 0.55-1.02 [facility] Comment on above: Performed By: #### G RUBIN, LIPID #### [facility] [address] [place] [address] Dr. Stephan Tavares EGFR-AF PORTUGUESE >60 Normal >=60 [facility] Comment on above: Performed By: #### G RUBIN, LIPID #### [facility] [address] [place] [address] Dr. Stephan Tavares EGFR-NON AF PORTUGUESE >60 Normal >=60 [facility] Comment on above: Performed By: #### G RUBIN, LIPID #### [facility] [address] [place] [address] Dr. Stephan Tavares Globulin (S) [Mass/Vol] 3.9 g/dL Normal [facility] Comment on above: Performed By: #### G RUBIN, LIPID #### [facility] [address] [address] [address] Stephan Tavares Glucose [Mass/Vol] 79 mg/dL Normal 74-106 [facility] Comment on above: Performed By: #### G RUBIN, LIPID #### [facility] [address] [address] [address] Stephan Tavares Potassium [Moles/Vol] 3.4 mmol/L Critically low 3.5-5.1 [facility] Comment on above: Performed By: #### G RUBIN, LIPID #### [facility] [address] [place] [address] Dr. Stephan Tavares Protein [Mass/Vol] 8.3 g/dL Critically high 6.4-8.2 [facility] Comment on above: Performed By: #### G RUBIN, LIPID #### [facility] [address] [place] [address] Dr. Stephan Tavares Sodium [Moles/Vol] 141 mmol/L Normal 136-145 [facility] Comment on above: Performed By: #### G RUBIN, LIPID #### [facility] [address] [place] [address] Dr. Stephan Tavares Urea nitrogen [Mass/Vol] 10.0 mg/dL Normal 7.0-18.0 [facility] Comment on above: Performed By: #### G RUBIN, LIPID #### [facility] [address] [place] [address] Dr. Stephan Tavares Urea nitrogen/Creatinine [Mass ratio] 11.4 mg/mg Normal [facility] Comment on above: Performed By: #### G RUBIN, LIPID #### [facility] [address] [place] [address] Dr. Stephan Tavares US PELVIS TRANSVAGon 023 [...] PHAM Date: 2022-06-09 17:04 Normal [facility] HLA B 27on 05-28-2022 HLA-B27 Negative Normal [facility] Comment on above: Result Comment: HLA- B*27 Negative B27 allele interpretation for all loci based on IMGT/HLA database version 3.44 This test was developed and its performance characteristics determined by [employer]. It has not been cleared or approved by the Food and Drug Administration. [facility] CLIA ID Number [id number] . This test was performed using PCR (Polymerase Chain Reaction)/SSOP (Sequence Specific Oligonucleotide Probes) technique. SBT (Sequence Based Typing) and/or SSP (Sequence Specific Primers) may be used as supplemental methods when necessary. Please contact [facility] Customer Service at if you have any questions. . Director of [facility] Laboratory Dr Tino Sampson, PhD Performed By: #### B MP, MG #### [facility] [address] [place] [address] Dr. Stephan Tavares LYME DISEASE, WESTERN BLOTon 05-27-2022 IgG P18 Ab. Absent Normal [facility] Comment on above: Performed By: #### B MP, MG #### [facility] [address] [place] [address] Dr. Stephan Tavares IgG P23 Ab. Absent Normal [facility] Comment on above: Performed By: #### B MP, MG #### [facility] [address] [place] [address] Dr. Stephan Tavares IgG P28 Ab. Absent Normal [facility] Comment on above: Performed By: #### B MP, MG #### [facility] [address] [place] [address] Dr. Stephan Tavares IgG P30 Ab. Absent Normal [facility] Comment on above: Performed By: #### B MP, MG #### [facility] [address] [place] [address] Dr. Stephan Tavares IgG P39 Ab. Absent Normal [facility] Comment on above: Performed By: #### B MP, MG #### [facility] [address] [place] [address] Dr. Stephan Tavares IgG P41 Ab. Present Abnormal [facility] Comment on above: Performed By: #### B MP, MG #### [facility] [address] [place] [address] Dr. Stephan Tavares IgG P45 Ab. Absent Normal [facility] Comment on above: Performed By: #### B MP, MG #### [facility] [address] [address] [address] Stephan Tavares IgG P58 Ab. Absent [facility] Comment on above: Performed By: #### B MP, MG #### [facility] [address] [place] [address] Dr. Stephan Tavares IgG P66 Ab. Absent [facility] Comment on above: Performed By: #### B MP, MG #### [facility] [address] [place] [address] Dr. Stephan Tavares IgG P93 Ab. Absent [facility] Comment on above: Performed By: #### B MP, MG #### [facility] [address] [place] [address] Dr. Stephan Tavares IgM P23 Ab. Present Abnormal [facility] Comment on above: Performed By: #### B MP, MG #### [facility] [address] [place] [address] Dr. Stephan Tavares IgM P39 Ab. Absent [facility] Comment on above: Performed By: #### B MP, MG #### [facility] [address] [place] [address] Dr. Stephan Tavares IgM P41 Ab. Present Abnormal [facility] Comment on above: Performed By: #### B MP, MG #### [facility] [address] [place] [address] Dr. Stephan Tavares Lyme IgG WB Interp. Negative Normal [facility] Comment on above: Result Comment: Posi tive: 5 of the following Borrelia-specific bands: 18,23,28,30,39,41,45,58, 66, and 93. Negative: No bands or banding patterns which do not meet positive criteria. Performed By: #### B TOMMIE MG #### [facility] [address] [address] [address] Stephan Tavares Lyme IgM WB Interp. Positive Abnormal [facility] Comment on above: Result [...] are those recommended by CDC/ASTPHLD. p23=Osp C, o71=bagmpelzg . Note: Sera from individuals with the following may cross react in the Lyme Line Blot assays: other spirochetal diseases (periodontal disease, leptospirosis, relapsing fever, yaws, and pinta); connective autoimmune (Rheumatoid Arthritis and Systemic Lupus Erythematosus and also individuals with Antinuclear Antibody); other infections ([place] Spotted Fever; Prabhakar-Rangel Virus, and Cytomegalovirus). . . Please Note: Lyme immunoblot alone is not recommended for the diagnosis of Lyme disease. Current guidelines recommend the use of a two-tiered approach to Lyme serology testing to improve the sensitivity and specificity of testing. [facility] offers test code [id number] Lyme Disease Serology with Reflex to aid in the diagnosis of Lyme Disease. Performed By: #### B TOMMIE MG #### [facility] [address] [address] [address] Stephan Tavares MISAEL EIA W/REFLEX 9 BIOMARKER Son 05-25-2022 MISAEL Direct Negative Normal Negative [facility] Comment on above: Performed By: #### A NARF9 #### [facility] [address] [address] [address] Stephan Tavares SLE PROFILE Aon 05-25-2022 Anti-DNA (DS) Ab Qn 2 IU/mL Normal 0-9 [facility] Comment on above: Result Comment: Nega tive <5 Equivocal 5 - 9 Positive >9 Performed By: #### S RONALDO #### [facility] [address] [address] [address] Stephan Tavares Antichromatin Antibodies <0.2 Normal 0.0-0.9 [facility] Comment on above: Performed By: #### S RONALDO #### [facility] [address] [place] [address] Dr. Stephan Tavares RA Latex Turbid. <10.0 Normal <14.0 [facility] Comment on above: Performed By: #### S RONALDO #### [facility] [address] [address] [address] Stephan Tavares INTERNATIONAL RELATIONS PROFESSOR Antibodies 0.3 AI Normal 0.0-0.9 [facility] Comment on above: Performed By: #### S RONALDO #### [facility] [address] [place] [address] Dr. Stephan Tavares Sjogren'nancy Anti-SS-A <0.2 Normal 0.0-0.9 [facility] Comment on above: Performed By: #### S RONALDO #### [facility] [address] [place] [address] Dr. Stephan Tavares Sjogrrodolfo'nancy Anti-SS-B <0.2 Normal 0.0-0.9 [facility] Comment on above: Performed By: #### S RONALDO #### [facility] [address] [place] [address] Dr. Stephan Tavares Mc Antibodies <0.2 Normal 0.0-0.9 [facility] Comment on above: Performed By: #### S RONALDO #### [facility] [address] [place] [address] Dr. Stephan Tavares CBC AUTO DIFFon 05-22-2022 BASO # 0.0 103/ul Normal 0.0-0.1 [facility] Comment on above: Performed By: #### C BC #### [facility] [address] [place] [address] Dr. Stephan Tavares Basophils/100 WBC (Bld) 1.0 % Normal 0.2-2.0 [facility] Comment on above: Performed By: #### C BC #### [facility] [address] [place] [address] Dr. Stephan Tavares EO # 0.1 103/ul Normal 0.0-0.7 [facility] Comment on above: Performed By: #### C BC #### [facility] [address] [place] [address] Dr. Stephan Tavares Eosinophils/100 WBC (Bld) 1.3 % Normal 0.9-7.0 [facility] Comment on above: Performed By: #### C BC #### [facility] [address] [place] [address] Dr. Stephan Tavares Erythrocyte distribution width (RBC) [Ratio] 13.3 % Normal 11.0-15.0 [facility] Comment on above: Performed By: #### C BC #### [facility] [address] [place] [address] Dr. Stephan Tavares Hematocrit (Bld) [Volume fraction] 36.7 % Normal 36.0-48.0 [facility] Comment on above: Performed By: #### C BC #### [facility] [address] [place] [address] Dr. Stephan Tavares Hemoglobin (Bld) [Mass/Vol] 12.6 g/dL Normal 12.0-16.0 [facility] Comment on above: Performed By: #### C BC #### [facility] [address] [place] [address] Dr. Stephan Tavares IG # 0.00 10e3/ul Normal 0.00-0.03 [facility] Comment on above: Performed By: #### C BC #### [facility] [address] [place] [address] Dr. Stephan Tavares IG % 0.0 % Normal 0.0-0.5 [facility] Comment on above: Performed By: #### C BC #### [facility] [address] [place] [address] Dr. Stephan Tavares LYMPH # 1.2 103/ul Normal 1.2-3.8 [facility] Comment on above: Performed By: #### C BC #### [facility] [address] [place] [address] Dr. Stephan Tavares Lymphocytes/100 WBC (Bld) 30.9 % Normal 20.5-60.0 [facility] Comment on above: Performed By: #### C BC #### [facility] [address] [place] [address] Dr. Stephan Tavares MANUAL DIFF REQ NO Normal [facility] Comment on above: Performed By: #### C BC #### [facility] [address] [place] [address] Dr. Stephan Tavares MCH (RBC) [Entitic mass] 30.6 pg Normal 26.7-34.0 [facility] Comment on above: Performed By: #### C BC #### [facility] [address] [place] [address] Dr. Stephan Tavares MCHC (RBC) [Mass/Vol] 34.3 g/dL Normal 29.9-35.2 [facility] Comment on above: Performed By: #### C BC #### [facility] [address] [place] [address] Dr. Stephan Tavares MCV (RBC) [Entitic vol] 89.1 fL Normal 81.0-99.0 [facility] Comment on above: Performed By: #### C BC #### [facility] [address] [place] [address] Dr. Stephan Tavares MONO # 0.2 103/ul Critically low 0.3-0.8 [facility] Comment on above: Performed By: #### C BC #### [facility] [address] [place] [address] Dr. Stephan Tavares Monocytes/100 WBC (Bld) 5.9 % Normal 1.7-12.0 [facility] Comment on above: Performed By: #### C BC #### [facility] [address] [place] [address] Dr. Stephan Tavares NEUT # 2.4 103/ul Normal 1.4-6.5 [facility] Comment on above: Performed By: #### C BC #### [facility] [address] [place] [address] Dr. Stephan Tavares Neutrophils/100 WBC (Bld) 60.9 % Normal 43.0-75.0 [facility] Comment on above: Performed By: #### C BC #### [facility] [address] [place] [address] Dr. Stephan Tavares Platelet mean volume (Bld) [Entitic vol] 10.9 fL Normal 9.5-13.5 [facility] Comment on above: Performed By: #### C BC #### [facility] [address] [address] [address] Stephan Tavares PLT 250 103/ul Normal 150-450 [facility] Comment on above: Performed By: #### C BC #### [facility] [address] [place] [address] Dr. Stephan Tavares RBC 4.12 106/ul Critically low 4.20-5.40 [facility] Comment on above: Performed By: #### C BC #### [facility] [address] [place] [address] Dr. Stephan Tavares WBC 3.9 103/ul Critically low 4.0-11.0 [facility] Comment on above: Performed By: #### C BC #### [facility] [address] [place] [address] Dr. Stephan Tavares CRPon 05-22-2022 CRP [Mass/Vol] mg/L Normal <=1.0 [facility] Comment on above: Performed By: #### G RUBIN, LIPID #### [facility] [address] [place] [address] Dr. Stephan Tavares SED RATE WESTERGRENon 2022 SED RATE 4 mm/hr Normal <=20 [facility] Comment on above: Performed By: #### S EDR #### [facility] [address] [place] [address] Dr. Stephan Tavares URIC ACID SERUMon 05-22-2022 Urate [Mass/Vol] 4.5 mg/dL Normal 2.6-6.0 [facility] Comment on above: Performed By: #### G RUBIN, LIPID #### [facility] [address] [place] [address] Dr. Stephan Tvaares EGD - THERAPEUTIC, EUS, OR T UBE INTERVENTIONSon 03-06-2022 [facility] US PELVIS AND TRANSVAGon US PELVIS [...] MARCELO Date: 2022-03-03 16:24 Normal [facility] CBC AUTO DIFFon 02-17-2022 BASO # 0.0 103/ul Normal 0.0-0.1 [facility] Comment on above: Performed By: #### G RUBIN, LIPID #### [facility] [address] [place] [address] Dr. Stephan Tavares Basophils/100 WBC (Bld) 0.8 % Normal 0.2-2.0 [facility] Comment on above: Performed By: #### G RUBIN, LIPID #### [facility] [address] [place] [address] Dr. Stephan Tavares EO # 0.1 103/ul Normal 0.0-0.7 [facility] Comment on above: Performed By: #### G RUBIN, LIPID #### [facility] [address] [place] [address] Dr. Stephan Tavares Eosinophils/100 WBC (Bld) 2.0 % Normal 0.9-7.0 [facility] Comment on above: Performed By: #### G RUBIN, LIPID #### [facility] [address] [place] [address] Dr. Stephan Tavares Erythrocyte distribution width (RBC) [Ratio] 13.2 % Normal 11.0-15.0 [facility] Comment on above: Performed By: #### G RUBIN, LIPID #### [facility] [address] [place] [address] Dr. Stephan Tavares Hematocrit (Bld) [Volume fraction] 36.2 % Normal 36.0-48.0 [facility] Comment on above: Performed By: #### G RUBIN, LIPID #### [facility] [address] [place] [address] Dr. Stephan Tavares Hemoglobin (Bld) [Mass/Vol] 12.6 g/dL Normal 12.0-16.0 [facility] Comment on above: Performed By: #### G RUBIN, LIPID #### [facility] [address] [place] [address] Dr. Stephan Tavares IG # 0.00 10e3/ul Normal 0.00-0.03 [facility] Comment on above: Performed By: #### G RUBIN, LIPID #### [facility] [address] [place] [address] Dr. Stephan Tavares IG % 0.0 % Normal 0.0-0.5 [facility] Comment on above: Performed By: #### G RUBIN, LIPID #### [facility] [address] [place] [address] Dr. Stephan Tavares LYMPH # 2.3 103/ul Normal 1.2-3.8 [facility] Comment on above: Performed By: #### G RUBIN, LIPID #### [facility] [address] [place] [address] Dr. Stephan Tavares Lymphocytes/100 WBC (Bld) 46.3 % Normal 20.5-60.0 [facility] Comment on above: Performed By: #### G RUBIN, LIPID #### [facility] [address] [place] [address] Dr. Stephan Tavares MANUAL DIFF REQ NO Normal [facility] Comment on above: Performed By: #### G RUBIN, LIPID #### [facility] [address] [place] [address] Dr. Stephan Tavares MCH (RBC) [Entitic mass] 29.2 pg Normal 26.7-34.0 [facility] Comment on above: Performed By: #### G RUBIN, LIPID #### [facility] [address] [place] [address] Dr. Stephan Tavares MCHC (RBC) [Mass/Vol] 34.8 g/dL Normal 29.9-35.2 [facility] Comment on above: Performed By: #### G RUBIN, LIPID #### [facility] [address] [address] [address] Stephan Tavares MCV (RBC) [Entitic vol] 84.0 fL Normal 81.0-99.0 [facility] Comment on above: Performed By: #### G RUBIN, LIPID #### [facility] [address] [address] [address] Stephan Tavares MONO # 0.4 103/ul Normal 0.3-0.8 [facility] Comment on above: Performed By: #### G RUBIN, LIPID #### [facility] [address] [place] [address] Dr. Stephan Tavares Monocytes/100 WBC (Bld) 8.7 % Normal 1.7-12.0 [facility] Comment on above: Performed By: #### G RUBIN, LIPID #### [facility] [address] [place] [address] Dr. Stephan Tavares NEUT # 2.1 103/ul Normal 1.4-6.5 [facility] Comment on above: Performed By: #### G RUBIN, LIPID #### [facility] [address] [place] [address] Dr. Stephan Tavares Neutrophils/100 WBC (Bld) 42.2 % Critically low 43.0-75.0 [facility] Comment on above: Performed By: #### G RUBIN, LIPID #### [facility] [address] [place] [address] Dr. Stephan Tavares Platelet mean volume (Bld) [Entitic vol] 11.1 fL Normal 9.5-13.5 [facility] Comment on above: Performed By: #### G RUBIN, LIPID #### [facility] [address] [address] [address] Stephan Tavares PLT 228 103/ul Normal 150-450 [facility] Comment on above: Performed By: #### G RUBIN, LIPID #### [facility] [address] [place] [address] Dr. Stephan Tavares RBC 4.31 106/ul Normal 4.20-5.40 [facility] Comment on above: Performed By: #### G RUBIN, LIPID #### [facility] [address] [place] [address] Dr. Stephan Tavares WBC 5.1 103/ul Normal 4.0-11.0 [facility] Comment on above: Performed By: #### G RUBIN, LIPID #### [facility] [address] [place] [address] Dr. Stephan Tavares MAGNESIUMon 02-17-2022 Magnesium [Mass/Vol] 1.8 mg/dL Normal 1.8-2.4 [facility] Comment on above: Performed By: #### B MP, MG #### [facility] [address] [place] [address] Dr. Stephan Tavares PROF CHEM 8 (BAS METB)on Anion gap [Moles/Vol] 16.1 mmol/L Normal [facility] Comment on above: Performed By: #### B MP, MG #### [facility] [address] [place] [address] Dr. Stephan Tavares Calcium [Mass/Vol] 8.7 mg/dL Normal 8.5-10.1 [facility] Comment on above: Performed By: #### B MP, MG #### [facility] [address] [place] [address] Dr. Stephan Tavares Chloride [Moles/Vol] 104 mmol/L Normal 98-107 [facility] Comment on above: Performed By: #### B MP, MG #### [facility] [address] [place] [address] Dr. Stephan Tavares CO2 [Moles/Vol] 22.0 mmol/L Normal 21.0-32.0 [facility] Comment on above: Performed By: #### B MP, MG #### [facility] [address] [place] [address] Dr. Stephan Tavares Creatinine [Mass/Vol] 0.74 mg/dL Normal 0.55-1.02 [facility] Comment on above: Performed By: #### B MP, MG #### [facility] [address] [address] [address] Stephan Tavares EGFR-AF PORTUGUESE >60 Normal >=60 [facility] Comment on above: Performed By: #### B MP, MG #### [facility] [address] [address] [address] Stephan Tavares EGFR-NON AF PORTUGUESE >60 Normal >=60 [facility] Comment on above: Performed By: #### B MP, MG #### [facility] [address] [address] [address] Stephan Tavares Glucose [Mass/Vol] 88 mg/dL Normal 74-106 [facility] Comment on above: Performed By: #### B MP, MG #### [facility] [address] [address] [address] Stephan Tavares Potassium [Moles/Vol] 4.1 mmol/L Normal 3.5-5.1 [facility] Comment on above: Result Comment: spec imen hemolysed. result could be spurious. suggest repeat. Performed By: #### B MP, MG #### [facility] [address] [address] [address] Stephan Tavares Sodium [Moles/Vol] 138 mmol/L Normal 136-145 [facility] Comment on above: Performed By: #### B MP, MG #### [facility] [address] [address] [address] Stephan Tavares Urea nitrogen [Mass/Vol] 12.0 mg/dL Normal 7.0-18.0 [facility] Comment on above: Performed By: #### B MP, MG #### [facility] [address] [address] [address] Stephan Tavares Urea nitrogen/Creatinine [Mass ratio] 16.2 mg/mg Normal [facility] Comment on above: Performed By: #### B MP, MG #### [facility] [address] [address] [address] Stephan Tavares Basic metabolic 2000 panelon 01-28-2022 Anion gap [Moles/Vol] 10 mmol/L 9 - 18 mmol/L [facility] Calcium [Mass/Vol] 9.3 mg/dL 8.5 - 10.2 mg/dL [facility] Chloride [Moles/Vol] 105 mmol/L 97 - 105 mmol/L [facility] CO2 [Moles/Vol] 22 mmol/L 22 - 30 mmol/L [facility] Creatinine [Mass/Vol] 0.68 mg/dL 0.58 - 0.96 mg/dL [facility] Estimated Glomerular Filtration Rate 119 mL/min/1.73m >=60 mL/min/1.73m [facility] Glucose [Mass/Vol] 77 mg/dL 74 - 99 mg/dL [facility] Potassium [Moles/Vol] 4.3 mmol/L 3.7 - [...] [#/Vol] 4.90 10*6/uL 3.90 - 5.20 m/uL [facility] WBC (Bld) [#/Vol] 4.05 10*3/uL 3.70 - 11.00 k/u L [facility] EKGon 01-28-2022 Atrial Rate 61 BPM [facility] Calculated P [place] 76 degrees [facility] Calculated R [place] 73 degrees [facility] Calculated T [place] 57 degrees [facility] P-R Interval 144 ms [facility] QRS Duration 86 ms [facility] QT Interval 424 ms [facility] QTC Calculation (Bazett) 426 ms [facility] Ventricular Rate 61 BPM [facility] TYPE AND SCREEN,30 DAYon ABO O [facility] HIstorical Ab Scr Status Negative [facility] Rh Nom (Bld) Positive [facility] EGD - THERAPEUTIC, EUS, OR T UBE INTERVENTIONSon 12-25-2021 [facility] METANEPHRINES PLASMA FREEon 11-01-2021 Metanephrine, Pl <10.0 Normal 0.0-88.0 [facility] Comment on above: Performed By: #### G RUBIN, LIPID #### [facility] [address] [address] [address] Stephan Tavares Normetanephrine, Pl 19.4 pg/mL Normal 0.0-210.1 [facility] Comment on above: Performed By: #### G RUBIN, LIPID #### [facility] [address] [address] [address] Stephan Tavares CORTISOLon 10-28-2021 Cortisol 4.6 ug/dL Normal [facility] Comment on above: Result Comment: Wesley isol AM 6.2 - 19.4 Cortisol PM 2.3 - 11.9 Performed By: #### C ORTISO #### [facility] [address] [address] [address] Stephan Tavares CBC AUTO DIFFon 10-27-2021 BASO # 0.0 103/ul Normal 0.0-0.1 [facility] Comment on above: Performed By: #### G RUBIN, LIPID #### [facility] [address] [address] [address] Stephan Tavares Basophils/100 WBC (Bld) 0.5 % Normal 0.2-2.0 [facility] Comment on above: Performed By: #### G RUBIN, LIPID #### [facility] [address] [place] [address] Dr. Stephan Tavares EO # 0.0 103/ul Normal 0.0-0.7 [facility] Comment on above: Performed By: #### G RUBIN, LIPID #### [facility] [address] [place] [address] Dr. Stephan Tavares Eosinophils/100 WBC (Bld) 0.5 % Critically low 0.9-7.0 [facility] Comment on above: Performed By: #### G RUBIN, LIPID #### [facility] [address] [place] [address] Dr. Stephan Tavares Erythrocyte distribution width (RBC) [Ratio] 12.8 % Normal 11.0-15.0 [facility] Comment on above: Performed By: #### G RUBIN, LIPID #### [facility] [address] [place] [address] Dr. Stephan Tavares Hematocrit (Bld) [Volume fraction] 37.5 % Normal 36.0-48.0 [facility] Comment on above: Performed By: #### G RUBIN, LIPID #### [facility] [address] [place] [address] Dr. Stephan Tavares Hemoglobin (Bld) [Mass/Vol] 12.9 g/dL Normal 12.0-16.0 [facility] Comment on above: Performed By: #### G RUBIN, LIPID #### [facility] [address] [place] [address] Dr. Stephan Tavares IG # 0.01 10e3/ul Normal 0.00-0.03 [facility] Comment on above: Performed By: #### G RUBIN, LIPID #### [facility] [address] [place] [address] Dr. Stephan Tavares IG % 0.2 % Normal 0.0-0.5 [facility] Comment on above: Performed By: #### G RUBIN, LIPID #### [facility] [address] [place] [address] Dr. Stephan Tavares LYMPH # 1.9 103/ul Normal 1.2-3.8 [facility] Comment on above: Performed By: #### G RUBIN, LIPID #### [facility] [address] [address] [address] Stephan Tavares Lymphocytes/100 WBC (Bld) 34.6 % Normal 20.5-60.0 [facility] Comment on above: Performed By: #### G RUBIN, LIPID #### [facility] [address] [address] [address] Stephan Tavares MANUAL DIFF REQ NO Normal [facility] Comment on above: Performed By: #### G RUBIN, LIPID #### [facility] [address] [address] [address] Stephan Tavares MCH (RBC) [Entitic mass] 30.3 pg Normal 26.7-34.0 [facility] Comment on above: Performed By: #### G RUBIN, LIPID #### [facility] [address] [place] [address] Dr. Stephan Tavares MCHC (RBC) [Mass/Vol] 34.4 g/dL Normal 29.9-35.2 [facility] Comment on above: Performed By: #### G RUBIN, LIPID #### [facility] [address] [address] [address] Stephan Tavares MCV (RBC) [Entitic vol] 88.0 fL Normal 81.0-99.0 [facility] Comment on above: Performed By: #### G RUBIN, LIPID #### [facility] [address] [address] [address] Stephan Tavares MONO # 0.4 103/ul Normal 0.3-0.8 [facility] Comment on above: Performed By: #### G RUBIN, LIPID #### [facility] [address] [address] [address] Stephan Tavares Monocytes/100 WBC (Bld) 6.6 % Normal 1.7-12.0 [facility] Comment on above: Performed By: #### G RUBIN, LIPID #### [facility] [address] [address] [address] Stephan Tavares NEUT # 3.2 103/ul Normal 1.4-6.5 [facility] Comment on above: Performed By: #### G RUBIN, LIPID #### [facility] [address] [address] [address] Stephan Tavares Neutrophils/100 WBC (Bld) 57.6 % Normal 43.0-75.0 [facility] Comment on above: Performed By: #### G RUBIN, LIPID #### [facility] [address] [address] [address] Stephan Tavares Platelet mean volume (Bld) [Entitic vol] 10.6 fL Normal 9.5-13.5 [facility] Comment on above: Performed By: #### G RUBIN, LIPID #### [facility] [address] [place] [address] Dr. Stephan Tavares PLT 249 103/ul Normal 150-450 [facility] Comment on above: Performed By: #### G RUBIN, LIPID #### [facility] [address] [place] [address] Dr. Stephan Tavares RBC 4.26 106/ul Normal 4.20-5.40 [facility] Comment on above: Performed By: #### G RUBIN, LIPID #### [facility] [address] [place] [address] Dr. Stephan Tavares WBC 5.6 103/ul Normal 4.0-11.0 [facility] Comment on above: Performed By: #### G RUBIN, LIPID #### [facility] [address] [place] [address] Dr. Stephan Tavares FREE T3on 10-27-2021 FREE T3 3.25 pg/mlL Normal 2.18-3.98 [facility] Comment on above: Performed By: #### G RUBIN, LIPID #### [facility] [address] [place] [address] Dr. Stephan Tavares FREE T4on 10-27-2021 Free T4 [Mass/Vol] 1.45 ng/dL Normal 0.76-1.46 [facility] Comment on above: Performed By: #### G RUBIN, LIPID #### [facility] [address] [place] [address] Dr. Stephan Tavares PROF CHEM 8 (BAS METB)on Anion gap [Moles/Vol] 13.1 mmol/L Normal [facility] Comment on above: Performed By: #### T SH, FT3, BMP #### [facility] [address] [place] [address] Dr. Stephan Tavares Calcium [Mass/Vol] 8.7 mg/dL Normal 8.5-10.1 [facility] Comment on above: Performed By: #### T SH, FT3, BMP #### [facility] [address] [place] [address] Dr. Stephan Tavares Chloride [Moles/Vol] 104 mmol/L Normal 98-107 [facility] Comment on above: Performed By: #### T SH, FT3, BMP #### [facility] [address] [place] [address] Dr. Stephan Tavares CO2 [Moles/Vol] 25.3 mmol/L Normal 21.0-32.0 [facility] Comment on above: Performed By: #### T JENI, FT3, BMP #### [facility] [address] [place] [address] Dr. Stephan Tavares Creatinine [Mass/Vol] 0.69 mg/dL Normal 0.55-1.02 [facility] Comment on above: Performed By: #### T JENI, FT3, BMP #### [facility] [address] [place] [address] Dr. Stephan Tavares EGFR-AF PORTUGUESE >60 Normal >=60 [facility] Comment on above: Performed By: #### T SH, FT3, BMP #### [facility] [address] [place] [address] Dr. Stephan Tavares EGFR-NON AF [place]UGUESE >60 Normal >=60 [facility] Comment on above: Performed By: #### T SH, FT3, BMP #### [facility] [address] [place] [address] Dr. Stephan Tavares Glucose [Mass/Vol] 87 mg/dL Normal 74-106 [facility] Comment on above: Performed By: #### T SH, FT3, BMP #### [facility] [address] [place] [address] Dr. Stephan Tavares Potassium [Moles/Vol] 3.4 mmol/L Critically low 3.5-5.1 [facility] Comment on above: Performed By: #### T SH, FT3, BMP #### [facility] [address] [place] [address] Dr. Stephan Tavares Sodium [Moles/Vol] 139 mmol/L Normal 136-145 [facility] Comment on above: Performed By: #### T SH, FT3, BMP #### [facility] [address] [place] [address] Dr. Stephan Tavares Urea nitrogen [Mass/Vol] 9.0 mg/dL Normal 7.0-18.0 [facility] Comment on above: Performed By: #### T SH, FT3, BMP #### [facility] [address] [place] [address] Dr. Stephan Tavares Urea nitrogen/Creatinine [Mass ratio] 13.0 mg/mg Normal [facility] Comment on above: Performed By: #### T SH, FT3, BMP #### [facility] [address] [place] [address] Dr. Stephan Tavares TSHon 10-27-2021 TSH Qn m[IU]/L Critically low 0.358-3.740 [facility] Comment on above: Performed By: #### G RUBIN, LIPID #### [facility] [address] [place] [address] SINUSES WO CONon [...] by: ALVERTO PHAM Date: 2021-10-06 06:19 Normal [facility] Dental Nerve Blockon 022 Pablo Atwood DO 08/30/2021 4:20 AM Dental Nerve Block Date/Time: 08/30/2021 4:19 AM Performed by: Pablo Atwood DO Authorized by: Pablo Atwood DO Consent: Consent obtained: Verbal Consent given by: Patient Risks, benefits, and alternatives were discussed: yes [place] protocol: Patient identity confirmed: Verbally with patient Indications: Indications: dental pain Location: Block type: Posterior superior alveolar Laterality: Left Procedure details: Syringe type: Controlled syringe Needle gauge: 27 G Anesthetic injected: Bupivacaine 0.5% WITH epi Post-procedure details: Outcome: Anesthesia achieved Procedure completion: Tolerated well, no immediate complications [facility] [employer] Work Phone: [facility] [employer] Phone: GLUCOSE BLOODon 08-21-2021 Glucose [Mass/Vol] 79 mg/dL Normal 74-106 [facility] Comment on above: Performed By: #### G RUBIN, LIPID #### [facility] [address] [place] [address] Dr. Stephan Tavares LIPID PROFILEon 08-21-2021 CHOL-HDL RATIO NORM SEE BELOW Normal [facility] Comment on above: Result Comment: 3.3 - 4.4 LOW RISK 4.4 - 7.1 AVERAGE RISK 7.1 - 11.0 MODERATE RISK >11.0 HIGH RISK Performed By: #### G RUBIN, LIPID #### [facility] [address] [address] [address] Stephan Tavares Cholesterol [Mass/Vol] 163 mg/dL Normal <=200 [facility] Comment on above: Performed By: #### G RUBIN, LIPID #### [facility] [address] [address] [address] Stephan Tavares Cholesterol in HDL [Mass/Vol] 71 mg/dL Critically high 40-60 [facility] Comment on above: Performed By: #### G RUBIN, LIPID #### [facility] [address] [address] [address] Stephan Tavares Cholesterol in LDL [Mass/Vol] 67.8 mg/dL Normal [facility] Comment on above: Performed By: #### G RUBIN, LIPID #### [facility] [address] [address] [address] Stephan Tavares Cholesterol.total/C holesterol in HDL [Mass ratio] 2.3 {ratio} Normal [facility] Comment on above: Performed By: #### G RUBIN, LIPID #### [facility] [address] [address] [address] Stephan Tavares HDL NORMAL > or = 60 mg/dl - LOW CARDIOVASCULAR RISK <40 mg/dl - HIGH CARDIOVASCULAR RISK Normal [facility] Comment on above: Performed By: #### G RUBIN, LIPID #### [facility] [address] [address] [address] Stephan Tavares LDL CALC NORMAL SEE BELOW Normal [facility] Comment on above: Result Comment: <100 mg/dl OPTIMAL 100 - 129 mg/dl NEAR OR ABOVE OPTIMAL 130 - 159 mg/dl BORDERLINE HIGH 160 - 189 mg/dl HIGH >190 mg/dl VERY HIGH Performed By: #### G RUBIN, LIPID #### [facility] [address] [address] [address] Stephan Tavares Triglyceride [Mass/Vol] 121 mg/dL Normal <=150 [facility] Comment on above: Performed By: #### G RUBIN, LIPID #### [facility] [address] [address] [address] Stephan Tavares VLDL CALC 24.2 mg/dL Normal [facility] Comment on above: Performed By: #### G RUBIN, LIPID #### [facility] [address] [address] [address] Stephan Tavares US SINGLE QUAD RT [...] PHAM Date: 2021-08-21 17:24 Normal [facility] XR SINUSES 3 VIEWS OR GREATE [...] PHAM Date: 2021-08-20 13:05 Normal [facility] Glucose - FINGER STICKon Glucose [Mass/Vol] 84 mg/dL [employer] Other VAGINITIS/VAGINOSIS DNA PROB Ryder 08-01-2021 Alea species Positive Abnormal Negative [facility] Comment on above: Performed By: #### G RUBIN, LIPID #### [facility] [address] [address] [address] Stephan Tavares Gardnerella vaginalis Negative Normal Negative [facility] Comment on above: Performed By: #### G RUBIN, LIPID #### [facility] [address] [address] [address] Stephan Tavares Trichomonas vaginalis Negative Normal Negative [facility] Comment on above: Performed By: #### G RUBIN, LIPID #### [facility] [address] [address] [address] Stephan Tavares APTTon 07-27-2021 aPTT Coag (Bld) [Time] 30.9 s [facility] Comment on above: IV Heparin Therapy Range: 62.0-94.0 CBC with Auto Differentialon 07-27-2021 Absolute Eos # 0.06 [facility] Absolute Immature Granulocyte <0.03 [facility] Absolute Lymph # 1.49 [facility] Absolute [place] # 0.27 [facility] Basophils (Bld) [#/Vol] 0.04 10*3/uL [facility] Basophils/100 WBC (Bld) 1 % 0 - 2 % [facility] Eosinophils/100 WBC (Bld) 1 % 1 - 4 % [facility] Hematocrit (Bld) [Volume fraction] 38.8 % 36.3 - 47.1 % [facility] Hemoglobin (Bld) [Mass/Vol] 12.7 g/dL 11.9 - 15.1 g/dL [facility] Immature granulocytes/100 WBC (Bld) 0 % 0 [facility] Interpretation and review of laboratory results Abnormal [facility] Lymphocytes/100 WBC (Bld) 36 % 24 - 43 % [facility] MCH (RBC) [Entitic mass] 28.9 pg 25.2 - 33.5 pg [facility] MCHC (RBC) [Mass/Vol] 32.7 g/dL 28.4 - 34.8 g/dL [facility] MCV (RBC) [Entitic vol] 88.4 fL 82.6 - 102.9 fL [facility] Monocytes/100 WBC (Bld) 6 % 3 - 12 % [facility] NRBC Automated 0.0 0.0 per 100 WBC [facility] Platelet distribution width (Bld) [Ratio] 14.5 % High 11.8 - 14.4 % [facility] Platelet mean volume (Bld) [Entitic vol] 10.8 fL 8.1 - 13.5 fL [facility] Platelets (Bld) [#/Vol] 251 10*3/uL [facility] RBC (Bld) [#/Vol] 4.39 10*6/uL 3.95 - 5.11 m/uL [facility] Segmented neutrophils/100 WBC (Bld) 56 % 36 - 65 % [facility] Segs Absolute 2.33 [facility] WBC (Bld) [#/Vol] 4.2 10*3/uL [facility] CT ABDOMEN PELVIS W IV CONTR AST Additional Contrast? Noneon 07-27-2021 No acute abdominal or pelvic abnormality. PN RIS CONSOLIDATED EXAMINATION: CT OF THE ABDOMEN [...] unremarkable. There is no acute osseous abnormality. [facility] RIS Devon Joseph MD - 07/27/2021 EXAMINATION: [...] IMPRESSION: No acute abdominal or pelvic abnormality. Room Phone: Radiology Study observation (narrative) Room Phone: CT ABDOMEN PELVIS W IV CONTR AST Additional Contrast? NoneOrdered By: Devon Moura on 07-27-2021 Room Phone: Comprehensive Metabolic Pane l w/ Reflex to MGon 07-27-2021 Albumin [Mass/Vol] 4.7 g/dL 3.5 - 5.2 g/dL [facility] Albumin/Globulin [Mass ratio] 1.8 {ratio} [facility] ALP (Bld) [Catalytic activity/Vol] 62 U/L 35 - 104 U/L [facility] ALT [Catalytic activity/Vol] 14 U/L 5 - 33 U/L [facility] Anion gap [Moles/Vol] 11 mmol/L 9 - 17 mmol/L [facility] AST [Catalytic activity/Vol] 18 U/L <32 [facility] Bilirubin [Mass/Vol] 0.52 mg/dL 0.3 - 1.2 mg/dL [facility] Calcium [Mass/Vol] 9.5 mg/dL 8.6 - 10.4 mg/dL [facility] Chloride [Moles/Vol] 101 mmol/L 98 - 107 mmol/L [facility] CO2 [Moles/Vol] 25 mmol/L 20 - 31 mmol/L [facility] Creatinine [Mass/Vol] 0.76 mg/dL 0.50 - 0.90 mg/dL [facility] Free PSA/Total PSA [Mass fraction] 7.3 g/dL 6.4 - 8.3 g/dL [facility] GFR >60 >60 mL/min [facility] GFR Non- >60 >60 mL/min [facility] Glucose [Mass/Vol] 86 mg/dL 70 - 99 mg/dL [facility] Interpretation and review of laboratory results Abnormal [facility] Potassium [Moles/Vol] 4.0 mmol/L 3.7 - 5.3 mmol/L [facility] Sodium [Moles/Vol] 137 mmol/L 135 - 144 mmol/L [facility] Urea nitrogen (BldV) [Mass/Vol] 16 mg/dL 6 - 20 mg/dL [facility] Urea nitrogen/Creatinine (Bld) [Mass ratio] 21 High [facility] Laboratory - Chemistry and C hemistry - challengeon 07-27-2021 GFR/1.73 sq M.predicted MDRD (S/P/Bld) [Vol rate/Area] [facility] Comment on above: Average GFR for 30-3 9 years old: 107 mL/min/1.73sq m Chronic Kidney Disease: <60 mL/min/1.73sq m Kidney failure: <15 mL/min/1.73sq m eGFR calculated using average adult body mass. Additional eGFR calculator available at: http://www.Stellaris/multiple_crcl_2012.htm Stage 1: Some kidney damage normal GFR Stage 2: Mild kidney damage GFR 60-89 Stage 3: Moderate kidney damage GFR 30-59 Stage 4: Severe kidney damage GFR 15-29 Stage 5: Severe kidney damage GFR <15 ESRD - chronic treatment by dialysis or transplant Lactic Acidon 07-27-2021 Lactate [Moles/Vol] 1 mmol/L 0.5 - 2.2 mmol/L [facility] [employer] Lipaseon 07-27-2021 Lipase [Catalytic activity/Vol] 49 U/L 13 - 60 U/L [facility] Factabase Microscopic Urinalysison - GrownOut [facility] Epithelial Cells UA 0 TO 2 [facility] Fact[employer] RBC, UA 0 TO 2 [facility] [employer] WBC, UA 0 TO 2 [facility] No Panel Informationon 07-27 GrownOut [facility] Protime-INRon 07-27-2021 INR Coag (Bld) [Relative time] 1.1 {INR} [facility] Comment on above: Non-therapeutic Range: INR = 0.9-1.2 Therapeutic Range: Moderate Anticoagulant Intensity: INR = 2.0-3.0 High Anticoagulant Intensity: INR = 2.5-3.5 PT Coag (PPP) [Time] 14.2 s [facility] Urinalysis with Reflex to Cu ltureon 07-27-2021 Bilirubin Urine Negative NEGATIVE [facility] [employer] Color, UA Yellow Yellow [facility] [employer] Glucose, Ur Negative NEGATIVE [facility] [employer] Ketones Ql (U) Negative NEGATIVE [facility] Leukocyte esterase Test strip Ql (U) Negative NEGATIVE [facility] Nitrite, Urine Negative NEGATIVE [facility] pH, UA 7.5 [facility] Protein, UA Negative NEGATIVE [facility] Specific [place], UA 1.010 [facility] Turbidity UA Clear Clear [facility] Urine Hgb Negative NEGATIVE [facility] Urobilinogen, Urine Normal Normal [facility] XR CHEST PORTABLEon 07-28-19 No acute process. [facility] EXAMINATION: ONE XRAY VIEW [...] The osseous structures are without acute process. [facility] Goldie Grande MD - [...] without acute process. IMPRESSION: No acute process. [facility] Work Phone: Radiology Study observation (narrative) [facility] Work Phone: XR CHEST PORTABLEOrdered By: Goldie Grande on 07-27-2021 [facility] Work Phone: XR HIP GENERAL 3V PELV/AP/LA T RIGHTon 06-18-2021 [facility] XR chest 2V*on 03-31-2021 XR chest 2V* [facility] [employer] Other XR chest 2V* [facility] [employer] Other XR chest 2V* [address] [employer] Other XR chest 2V* [place] [address] [facility] [employer] Other XR chest 2V* XRay Report [employer] Other XR chest 2V* Signed [employer] Other XR chest 2V* Patient: Abbey Garcia MR#: [id number] [place] [employer] Other XR chest 2V* : 1990 Acct:[id number] [employer] Other XR chest 2V* Age/Sex: 30 / F ADM Date: 03/31/21 [employer] Other XR chest 2V* [facility] Room: Type: [facility] [employer] Other XR chest 2V* Attending Dr: Shanna June [facility] [employer] Other XR chest 2V* Ordering Provider: SHANNA JUNEElroy [employer] Other XR chest 2V* Date of Service: 03/31/21 [employer] Other XR chest 2V* XR/XR chest 2V*: SOB (shortness of breath) [employer] Other XR chest 2V* Copies to: SHANNA JUNE [facility] [employer] Other XR chest 2V* PA AND LATERAL CHEST: [employer] Other XR chest 2V* CLINICAL HISTORY: Wheezing and shortness of breath [employer] Other XR chest 2V* COMPARISON: 03/05/2020 [employer] Other XR chest 2V* There is no focal parenchymal consolidation, effusion or pneumothorax. The cardiac, hilar and [employer] Other XR chest 2V* mediastinal silhouettes are within normal limits. There is no vascular congestion. The [employer] Other XR chest 2V* visualized bony thorax is intact. [employer] Other XR chest 2V* XR/XR chest 2V* [employer] Other XR chest 2V* IMPRESSION: [employer] Other XR chest 2V* NO ACUTE CARDIOPULMONARY ABNORMALITY. [employer] Other XR chest 2V* Impression dictated by: Maricruz Hutchinson M.D.03/31/2021 11:32 AM [employer] Other XR chest 2V* Dictation Location: RADIO-PC-10 [employer] Other XR chest 2V* Transcribed By: SULEMA 03/31/21 [facility] [employer] Other XR chest 2V* Dictated By: Maricruz Hutchinson MD 03/31/21 [facility] [employer] Other XR chest 2V* Signed By: [employer] Other XR chest 2V* 03/31/21 1132 [employer] Other Urinalysis - AUTOMATEDon Appearance (U) clear [employer] Other Bilirubin Ql (U) Negative [employer] Other Color (U) yellow [employer] Other Glucose Ql (U) Negative [employer] Other Hemoglobin Ql (U) Negative [employer] Other Ketones Ql (U) Negative [employer] Other Leukocyte esterase Test strip Ql (U) Negative [employer] Other Nitrite Ql (U) Negative [employer] Other pH (U) 7.0 [pH] [employer] Other Protein Ql (U) Negative [employer] Other Specific gravity (U) [Rel density] 1.015 [employer] Other Urobilinogen (U) [Mass/Vol] 0.2 mg/dL [employer] Other XR FINGER RIGHT (MIN 2 VIEWS )Ordered By: Vicky Olmedo on 12-14-2020 No acute osseous abnormality. [employer] Phone: EXAMINATION: THREE XRAY VIEWS OF THE RIGHT FINGERS 12/14/2020 3:26 pm COMPARISON: None. HISTORY: ORDERING SYSTEM PROVIDED HISTORY: shut right thumb in car door TECHNOLOGIST PROVIDED HISTORY: shut right thumb in car door FINDINGS: There is no evidence of acute fracture. There is normal alignment. No acute joint abnormality. No focal osseous lesion. No focal soft tissue abnormality. [employer] Phone: Yusuf, pn Incoming Radiant Results From [employer] - 12/14/2020 3:33 PM EDT EXAMINATION: THREE [...] tissue abnormality. IMPRESSION: No acute osseous abnormality. [employer] Phone: [employer] Phone: CBC, EDIF, PLATELETOrdered B y: Juanito Laird on 07-02-2020 ABSOLUTE BASOPHIL COUNT 0.0 10*3/uL 0.0 - 0.2 10*3/uL [facility] Basophils/100 WBC (Bld) 0.6 % 0.0 - 2.0 % [facility] Differential cell count method Nom (Bld) AUTO DIFF % [facility] Eosinophils (Bld) [#/Vol] 0.10 10*3/uL 0.0 - 0.7 10*3/uL [facility] Eosinophils/100 WBC (Bld) 1.3 % 0.0 - 11.0 % [facility] Erythrocyte distribution width (RBC) [Ratio] 14.1 % 11.5 - 14.5 % [facility] Hematocrit (Bld) [Volume fraction] 36.2 % 36.0 - 48.0 % [facility] Hemoglobin (Bld) [Mass/Vol] 12.1 g/dL [facility] Lymphocytes (Bld) [#/Vol] 1.70 10*3/uL 1.2 - 3.4 10*3/uL [facility] Lymphocytes/100 WBC (Bld) 23.4 % 20.0 - 55.0 % [facility] MCH (RBC) [Entitic mass] 28.1 pg 26.0 - 35.0 PG [facility] MCHC (RBC) [Mass/Vol] 33.4 g/dL [facility] MCV (RBC) [Entitic vol] 84.1 fL [facility] Monocytes (Bld) [#/Vol] 0.5 10*3/uL 0.0 - 0.7 10*3/uL [facility] Monocytes/100 WBC (Bld) 6.4 % 0.0 - 10.0 % [facility] Neutrophils (Bld) [#/Vol] 5.0 10*3/uL 1.4 - 6.5 10*3/uL [facility] Neutrophils/100 WBC (Bld) 68.3 % 37.0 - 75.0 % [facility] Platelet mean volume (Bld) [Entitic vol] 8.9 fL [facility] Platelets (Bld) [#/Vol] 295 10*3/uL 130.0 - 400.0 10*3/uL [facility] RBC (Bld) [#/Vol] 4.31 10*6/uL 4.0 - 5.4 10*6/u L [facility] WBC (Bld) [#/Vol] 7.3 10*3/uL 3.6 - 11.0 10*3/u L [facility] COMPREHENSIVE METABOLIC PANE LOrdered By: Juanito Laird on 07-02-2020 Albumin [Mass/Vol] 4.1 G/dl 3.5 - 5.0 G/dl [facility] Albumin/Globulin [Mass ratio] 1.3 {ratio} [facility] ALP [Catalytic activity/Vol] 52 U/L [facility] ALT [Catalytic activity/Vol] 16 U/L [facility] AST [Catalytic activity/Vol] 29 U/L [facility] Bilirubin [Mass/Vol] 0.5 mg/dL [facility] Calcium [Mass/Vol] 9.2 mg/dL [facility] Chloride [Moles/Vol] 102 mmol/L [facility] CO2 [Moles/Vol] 22 mmol/L [facility] Creatinine [Mass/Vol] 0.59 mg/dL [facility] GFR COMMENT Average GFR for 30-39 years old = 109. [facility] Comment on above: Chronic Kidney disea se, GFR = <60. Kidney failure, GFR = <15. The GFR estimate is not adjusted for extreme body surface area or acute process, nor has it been validated for women or ethnic groups other than and . GFR/1.73 sq M.predicted among blacks MDRD (S/P/Bld) [Vol rate/Area] mL/min/{1.73_m2} ml/min/1.73sq.m [facility] GFR/1.73 sq M.predicted among non-blacks MDRD (S/P/Bld) [Vol rate/Area] mL/min/{1.73_m2} ml/min/1.73sq.m [facility] Glucose post fast [Mass/Vol] 84 mg/dL [facility] Comment on above: NORMAL <100 mg/dL PREDIABETES 101-126 mg/dL DIABETES 126 mg/dL or higher Interpretation and review of laboratory results Abnormal [facility] Potassium [Moles/Vol] 4.1 mmol/L [facility] Protein [Mass/Vol] 7.3 g/dL [facility] Sodium [Moles/Vol] 134 mmol/L Low [facility] Urea nitrogen [Mass/Vol] 15 mg/dL [employer] CT ABDOMEN/PELVIS WITHOUT CO NTRASTOrdered By: Juanito Laird on 07-02-2020 IMPRESSION: CT abdomen and CT pelvis studies demonstrate findings compatible with hepatic cysts as described, similar to prior study. Finding is compatible with complex right adnexal cyst as noted. Correlate for mild gastroenteritis. [employer] EXAMINATION: CT ABDOMEN/PELVIS WITHOUT CONTRAST HISTORY: Abdominal [...] bowel content. Bony structures are grossly intact. [employer] User, Interfaces - 07/02/2020 2:22 PM EDT [...] cyst as noted. Correlate for mild gastroenteritis. [facility] HCG ( test) Ql (U)O rdered By: Vaughn Ceja on 07-02-2020 [facility] HCG QUALITATIVE, URINEOrdere d By: Vaughn Ceja on 07-02-2020 HCG ( test) Ql (U) Negative NEGATIVE [facility] LACTATE, BLOODOrdered By: Catherine Laird on 07-02-2020 Lactate [Moles/Vol] 1.0 mmol/L [facility] LIPASEOrdered By: Juanito rosen on 07-02-2020 Lipase [Catalytic activity/Vol] 32 U/L 23 - 300 U/L [facility] No Panel InformationOrdered By: Juanito Laird on 07-02-2020 [facility] PROTIME-INROrdered By: Gautam Laird on 07-02-2020 INR Coag (PPP) [Relative time] 0.95 {INR} [facility] Comment on above: 2.0-3.0 THERAPEUTIC RANGE 2.5-3.5 MECHANICAL VALVE RANGE PT Coag (PPP) [Time] 12.9 s [facility] TYPE AND SCREEN - POSSIBLE T RANSFUSIONOrdered By: Juanito Laird on 07-02-2020 ABO and Rh group Nom (Bld ) Positive [facility] ARM BAND NUMBER [id number] [facility] Blood group antibody screen Ql Negative [facility] EXPIRATION DATE 07/05/2020,2357 [facility] URINALYSIS, MACROOrdered By: Vaughn Ceja on 07-02-2020 Bilirubin Ql (U) Negative NEGATIVE [facility] Clarity (U) SLIGHTLY CLOUDY Abnormal CLEAR [facility] Color (U) PINK Abnormal YELLOW [facility] Glucose Test strip (U) [Mass/Vol] Negative NEGATIVE mg/dl [facility] Hemoglobin Ql (U) LARGE Abnormal NEGATIVE [facility] Interpretation and review of laboratory results Abnormal [facility] Ketones (U) [Mass/Vol] Negative NEGATIVE mg/dl [facility] Leukocyte esterase Test strip Ql (U) TRACE Abnormal NEGATIVE [facility] Nitrite Ql (U) Negative NEGATIVE [facility] pH (U) 5.5 [pH] [facility] Protein Ql (U) 100 mg/dl Abnormal NEGATIVE [facility] Specific gravity (U) [Rel density] <1.005 Low [facility] Urobilinogen (U) [Mass/Vol] 0.2 mg/dL [facility] URINE MICROSCOPICOrdered By: Vaughn Ceja on 07-02-2020 Bacteria LM.HPF (Urine sed) [#/Area] TRACE Abnormal NEGATIVE [facility] Casts LM.LPF (Urine sed) [#/Area] NONE NONE /LPF [facility] Crystals LM Nom (Urine sed) NONE NONE [facility] Epithelial cells LM Ql (Urine sed) 10 TO 20 /HPF [facility] Interpretation and review of laboratory results Abnormal [facility] Mucus Ql (Urine sed) Negative NEGATIVE [facility] RBC LM.HPF (Urine sed) [#/Area] TOO NUMEROUS TO COUNT Abnormal NEGATIVE /HPF [facility] Urine sediment comments LM John (Urine sed) POSSIBLY CONTAMINATED SPECIMEN, CULTURE MUST BE ORDERED SEPARATELY IF DEEMED NECESSARY. [facility] WBC LM.HPF (Urine sed) [#/Area] 1 TO 5 NEGATIVE /HPF [facility] US PELVIC WITH TRANSVAGINAL WITH DOPPLEROrdered By: Juanito Laird on 07-02-2020 IMPRESSION: 5.5 cm septated right ovarian cyst No evidence of right ovarian torsion Nonvisualization of the left ovary 4.1 cm myometrial masses, leiomyoma suspected [facility] EXAM: US PELVIC WITH TRANSVAGINAL [...] to patient body habitus and bowel gas [facility] User, Interfaces - 07/02/2020 4:10 [...] 4.1 cm myometrial masses, leiomyoma suspected [facility] CBC, EDIF, PLATELETon 2019 ABSOLUTE BASOPHIL COUNT 0.0 10*3/uL 0 - 0.2 10*3/uL [facility] Basophils/100 WBC (Bld) 0.6 % 0 - 2 % [facility] Differential cell count method Nom (Bld) AUTO DIFF % [facility] Eosinophils (Bld) [#/Vol] 0.10 10*3/uL 0 - 0.7 10*3/uL [facility] Eosinophils/100 WBC (Bld) 2.4 % 0 - 11 % [facility] Erythrocyte distribution width (RBC) [Ratio] 15.2 % High 11.5 - 14.5 % [facility] Hematocrit (Bld) [Volume fraction] 39.4 % 36 - 48 % [facility] Hemoglobin (Bld) [Mass/Vol] 12.7 g/dL [facility] Interpretation and review of laboratory results Abnormal [facility] Lymphocytes (Bld) [#/Vol] 1.50 10*3/uL 1.2 - 3.4 10*3/uL [facility] Lymphocytes/100 WBC (Bld) 25.8 % 20 - 55 % [facility] MCH (RBC) [Entitic mass] 28.3 pg 26 - 35 PG [facility] MCHC (RBC) [Mass/Vol] 32.3 g/dL [facility] MCV (RBC) [Entitic vol] 87.6 fL [facility] Monocytes (Bld) [#/Vol] 0.3 10*3/uL 0 - 0.7 10*3/uL [facility] Monocytes/100 WBC (Bld) 5.6 % 0 - 10 % [facility] Neutrophils (Bld) [#/Vol] 3.7 10*3/uL 1.4 - 6.5 10*3/uL [facility] Neutrophils/100 WBC (Bld) 65.6 % 37 - 75 % [facility] Platelet mean volume (Bld) [Entitic vol] 9.2 fL [facility] Platelets (Bld) [#/Vol] 277 10*3/uL 130 - 400 10*3/uL [facility] RBC (Bld) [#/Vol] 4.50 10*6/uL 4 - 5.4 10*6/uL [facility] WBC (Bld) [#/Vol] 5.7 10*3/uL 3.6 - 11 10*3/uL [facility] CHEM 7 (LYTES,BUN,CREA,GLUC) on 01-30-2020 Chloride [Moles/Vol] 106 mmol/L [facility] CO2 [Moles/Vol] 20 mmol/L Low [facility] Creatinine [Mass/Vol] 0.67 mg/dL [facility] GFR/1.73 sq M predicted among blacks MDRD (S/P/Bld) [Vol rate/Area] mL/min/{1.73_m2} ml/min/1.73sq.m [facility] GFR/1.73 sq M predicted among non-blacks MDRD (S/P/Bld) [Vol rate/Area] mL/min/{1.73_m2} ml/min/1.73sq.m [facility] GFR/1.73 sq M predicted among non-blacks MDRD (S/P/Bld) [Vol rate/Area] Average GFR for 30-39 years old = 109. [facility] Comment on above: Chronic Kidney disea se, GFR = <60. Kidney failure, GFR = <15. The GFR estimate is not adjusted for extreme body surface area or acute process, nor has it been validated for women or ethnic groups other than and . Glucose post fast [Mass/Vol] 78 mg/dL [facility] Comment on above: NORMAL <100 mg/dL PREDIABETES 101-126 mg/dL DIABETES 126 mg/dL or higher Interpretation and review of laboratory results Abnormal [facility] Potassium [Moles/Vol] 3.8 mmol/L [facility] Sodium [Moles/Vol] 138 mmol/L [facility] Urea nitrogen [Mass/Vol] 8 mg/dL [facility] CT ABDOMEN/PELVIS WITH CONTR Daljit [...] unchanged. 4. Prior cholecystectomy and appendectomy. 2 [email or web address] [facility] EXAMINATION: CT ABDOMEN/PELVIS WITH CONTRAST HISTORY: [...] osseous lesions. No compression fracture is identified. [email or web address] [facility] IMPRESSION: 1. Scattered fluid throughout nondilated small bowel may correlate with enteritis or mild ileus pattern. No bowel obstruction. 2. Left ovarian cyst measures 4.7 cm. Pelvic ultrasound could be considered, if clinical symptoms warrant. 3. Hepatic cysts, unchanged. 4. Prior cholecystectomy and appendectomy. 2 [employer] HCG QUALITATIVE, URINEon HCG ( test) Ql (U) Negative NEGATIVE [employer] HEPATIC FUNCTION PANELon Albumin [Mass/Vol] 4.6 g/dL [employer] ALP [Catalytic activity/Vol] 52 U/L [facility] ALT [Catalytic activity/Vol] 18 U/L [facility] AST [Catalytic activity/Vol] 31 U/L [facility] Bilirubin [Mass/Vol] 0.5 mg/dL [facility] Bilirubin.direct [Mass/Vol] 0.0 mg/dL [facility] Protein [Mass/Vol] 7.7 g/dL [facility] LIPASEon 01-30-2020 Lipase [Catalytic activity/Vol] 33 U/L 23 - 300 U/L [facility] URINALYSIS, MACROon 01-30-20 20 Bilirubin Ql (U) Negative NEGATIVE [facility] Clarity (U) CLEAR CLEAR [facility] Color (U) YELLOW YELLOW [facility] Glucose Test strip (U) [Mass/Vol] Negative NEGATIVE mg/dl [facility] Hemoglobin Ql (U) Negative NEGATIVE [facility] Interpretation and review of laboratory results Abnormal [facility] Ketones (U) [Mass/Vol] Negative NEGATIVE mg/dl [facility] Leukocyte esterase Test strip Ql (U) Negative NEGATIVE [facility] Nitrite Ql (U) Negative NEGATIVE [facility] pH (U) 7.5 [pH] High [facility] Protein Ql (U) Negative NEGATIVE mg/dl [facility] Specific gravity (U) [Rel density] 1.015 [facility] Urobilinogen (U) [Mass/Vol] 0.2 [facility] Vital Signs Date Time Vital Sign Value Performing Clinician Facility 09-08-2023 11:150400 Body height 167.6 cm Kasie Avalos MD Work Phone: [facility] 09-08-2023 11:15-0400 Body mass index (BMI) [Ratio] 28.34 kg/m2 Kasie Avalos MD Work Phone: [facility] 09-08-2023 11:15-0400 Body temperature 97.3 [degF] Kasie Avalos MD Work Phone: [facility] 09-08-2023 11:15-0400 Body weight 79.65 kg Kasie Avalos MD Work Phone: [facility] 09-08-2023 11:15-0400 Diastolic blood pressure 82 mm[Hg] Kasie Avalos MD Work Phone: [facility] 09-08-2023 11:15-0400 Heart rate 74 /min Kasie Avalos MD Work Phone: [facility] 09-08-2023 11:15-0400 SaO2% (BldA) [Mass fraction] 100 % Kasie Avalos MD Work Phone: [facility] 09-08-2023 11:15-0400 Systolic blood pressure 118 mm[Hg] Kasie Avalos MD Work Phone: [facility] 08-26-2023 16:30-0400 Diastolic blood pressure 53 mm[Hg] Britt Bradshaw MD Work Phone: [facility] 08-26-2023 16:30-0400 Heart rate 62 /min Britt Bradshaw MD Work Phone: [facility] 08-26-2023 16:30-0400 Respiratory rate 16 /min Britt Bradshaw MD Work Phone: [facility] 08-26-2023 16:30-0400 SaO2% (BldA) [Mass fraction] 98 % Britt Bradshaw MD Work Phone: [facility] 08-26-2023 16:30-0400 Systolic blood pressure 104 mm[Hg] Britt Bradshaw MD Work Phone: [facility] 08-26-2023 15:19-0400 Body height 167.6 cm Britt Bradshaw MD Work Phone: [facility] 08-26-2023 15:19-0400 Body mass index (BMI) [Ratio] 28.25 kg/m2 Britt Bradshaw MD Work Phone: [facility] 08-26-2023 15:19-0400 Body temperature 98.1 [degF] Britt Bradshaw MD Work Phone: [facility] 08-26-2023 15:19-0400 Body weight 79.38 kg Britt Bradshaw MD Work Phone: [facility] 08-21-2023 12:56-0400 Diastolic blood pressure 55 mm[Hg] 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 Jaquan Cristhian Work Phone: [facility] 08-21-2023 12:56-0400 Heart rate 72 /min 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 Jaquan Cristhian Work Phone: [facility] 08-21-2023 12:56-0400 Respiratory rate 18 /min 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 Jaquan Cristhian Work Phone: [facility] 08-21-2023 12:56-0400 SaO2% (BldA) [Mass fraction] 98 % 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 Jaquan Cristhian Work Phone: [facility] 08-21-2023 12:56-0400 Systolic blood pressure 103 mm[Hg] 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 Jaquan Cristhian Work Phone: [facility] 08-21-2023 08:54-0400 Body height 168.91 cm 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 Jaquan Cristhian Work Phone: [facility] 08-21-2023 08:54-0400 Body weight 79 kg 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 Jaquan Cristhian Work Phone: [facility] 08-21-2023 08:48-0400 Body temperature 97.9 [degF] 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 Jaquan Crsithian Work Phone: [facility] 08-14-2023 18:07-0400 Diastolic blood pressure 74 mm[Hg] 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 Jaquan Cristhian Work Phone: [facility] 08-14-2023 18:07-0400 Heart rate 66 /min 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 Jaquan Cristhian Work Phone: [facility] 08-14-2023 18:07-0400 Respiratory rate 18 /min 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 Jaquan Cristhian Work Phone: [facility] 08-14-2023 18:07-0400 SaO2% (BldA) [Mass fraction] 99 % 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 Jaquan Cristhian Work Phone: [facility] 08-14-2023 18:07-0400 Systolic blood pressure 110 mm[Hg] 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 Jaquan Cristhian Work Phone: [facility] 08-14-2023 16:17-0400 Body height 167.64 cm 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 Jaquan Cristhian Work Phone: [facility] 08-14-2023 16:17-0400 Body temperature 97.5 [degF] 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 Jaquan Cristhian Work Phone: [facility] 08-14-2023 16:17-0400 Body weight 78.92 kg 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 Jaquan Cristhian Work Phone: [facility] [facility] 08-09-2023 13:51-0400 Diastolic blood pressure 79 mm[Hg] Vic Ramos MD Work Phone: [facility] 08-09-2023 13:51-0400 Heart rate 76 /min Vic Ramos MD Work Phone: [facility] 08-09-2023 13:51-0400 Systolic blood pressure 113 mm[Hg] Vic Ramos MD Work Phone: [facility] 08-04-2023 08:23-0400 Body mass index (BMI) [Ratio] 29.21 kg/m2 Boogie Murguia MD Work Phone: [facility] 08-04-2023 08:23-0400 Body weight 82.1 kg Boogie Murguia MD Work Phone: [facility] 07-31-2023 13:21-0400 Diastolic blood pressure 55 mm[Hg] 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 Jaquan Cristhian Work Phone: [facility] 07-31-2023 13:21-0400 Heart rate 64 /min 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 Jaquan Cristhian Work Phone: [facility] 07-31-2023 13:21-0400 Respiratory rate 18 /min 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 Jaquan Cristhian Work Phone: [facility] 07-31-2023 13:21-0400 SaO2% (BldA) [Mass fraction] 97 % 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 Jaquan Cristhian Work Phone: [facility] 07-31-2023 13:21-0400 Systolic blood pressure 104 mm[Hg] 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 Jaquan Cristhian Work Phone: [facility] 07-31-2023 10:21-0400 Body height 168.91 cm 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 Jaquan Cristhian Work Phone: [facility] 07-31-2023 10:21-0400 Body temperature 98.2 [degF] 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 Jaquan Cristhian Work Phone: [facility] 07-31-2023 10:21-0400 Body weight 79 kg 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 Jaquan Cristhian Work Phone: [facility] 07-17-2023 21:45-0400 Body temperature 98.2 [degF] 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 Jaquan Cristhian Work Phone: [facility] 07-17-2023 21:45-0400 Diastolic blood pressure 73 mm[Hg] 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 Jaquan Cristhian Work Phone: [facility] 07-17-2023 21:45-0400 Heart rate 66 /min 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 Jaquan Cristhian Work Phone: [facility] 07-17-2023 21:45-0400 Respiratory rate 16 /min 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 Jaquan Cristhian Work Phone: [facility] 07-17-2023 21:45-0400 SaO2% (BldA) [Mass fraction] 97 % 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 Jaquan Cristhian Work Phone: [facility] 07-17-2023 21:45-0400 Systolic blood pressure 108 mm[Hg] 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 Jaquan Cristhian Work Phone: [facility] 07-17-2023 12:39-0400 Body height 167.64 cm 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 Jaquan Cristhian Work Phone: [facility] 07-17-2023 08:45-0400 Body weight 79.5 kg 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 Jaquan Cristhian Work Phone: [facility] 07-17-2023 07:30-0400 Diastolic blood pressure 53 mm[Hg] 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 Jaquan Cristhian Work Phone: [facility] 07-17-2023 07:30-0400 Heart rate 62 /min 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 Jaquan Cristihan Work Phone: [facility] 07-17-2023 07:30-0400 Respiratory rate 16 /min 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 Jaquan Cristhian Work Phone: [facility] 07-17-2023 07:30-0400 SaO2% (BldA) [Mass fraction] 96 % 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 Jaquan Cristhian Work Phone: [facility] 07-17-2023 07:30-0400 Systolic blood pressure 106 mm[Hg] 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 Jaquan Cristhian Work Phone: [facility] 07-16-2023 14:44-0400 Body height 167.64 cm 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 Jaquan Cristhian Work Phone: [facility] 07-16-2023 14:44-0400 Body temperature 97.6 [degF] 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 Jaquan Cristhian Work Phone: [facility] 07-16-2023 14:44-0400 Body weight 79.95 kg 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 Jaquan Cristhian Work Phone: [facility] 07-03-2023 07:00-0400 Body temperature 98.6 [degF] David Woich DO Work Phone: [facility] 07-03-2023 07:00-0400 Diastolic blood pressure 57 mm[Hg] David Wodrich DO Work Phone: [facility] 07-03-2023 07:00-0400 Heart rate 105 /min David Wodrich DO Work Phone: [facility] 07-03-2023 07:00-0400 Respiratory rate 18 /min David Wodrich DO Work Phone: [facility] 07-03-2023 07:00-0400 SaO2% (BldA) [Mass fraction] 100 % David Wodrich DO Work Phone: [facility] 07-03-2023 07:00-0400 Systolic blood pressure 99 mm[Hg] David Wodrich DO Work Phone: [facility] 06-29-2023 18:16-0400 Body height 167.6 cm David Wodrich DO Work Phone: [facility] 06-29-2023 18:16-0400 Body mass index (BMI) [Ratio] 27.12 kg/m2 David Wodrich DO Work Phone: [facility] 06-29-2023 18:16-0400 Body weight 76.2 kg David Wodrich DO Work Phone: [facility] 06-22-2023 11:14-0400 Body height 167.6 cm Sherry Magaña MD Work Phone: [facility] 06-22-2023 11:14-0400 Body mass index (BMI) [Ratio] 27.12 kg/m2 Sherry Magaña MD Work Phone: [facility] 06-22-2023 11:14-0400 Body weight 76.2 kg Sherry Magaña MD Work Phone: [facility] 06-18-2023 09:35-0400 Body height 167.6 cm Breanna Stern APRN.CNP Work Phone: [facility] 06-18-2023 09:35-0400 Body mass index (BMI) [Ratio] 27.29 kg/m2 Breanna Stern SLIM.REAL ESTATE AGENT Work Phone: [facility] 06-18-2023 09:35-0400 Body temperature 98.01 [degF] Breanna Stern INVENTORY ADMINISTRATOR.REAL ESTATE AGENT Work Phone: [facility] 06-18-2023 09:35-0400 Body weight 76.66 kg Breanna Stern INVENTORY ADMINISTRATOR.REAL ESTATE AGENT Work Phone: [facility] 06-18-2023 09:35-0400 Diastolic blood pressure 82 mm[Hg] Breanna Stern INVENTORY ADMINISTRATOR.REAL ESTATE AGENT Work Phone: [facility] 06-18-2023 09:35-0400 Heart rate 78 /min Breanna Stern SLIM.REAL ESTATE AGENT Work Phone: [facility] 06-18-2023 09:35-0400 SaO2% (BldA) [Mass fraction] 100 % Breanna Stern SLIM.REAL ESTATE AGENT Work Phone: [facility] 06-18-2023 09:35-0400 Systolic blood pressure 142 mm[Hg] Breanna Stern INVENTORY ADMINISTRATOR.REAL ESTATE AGENT Work Phone: [facility] 05-31-2023 00:53-0400 Diastolic blood pressure 82 mm[Hg] 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 Jaquan Cristhian Work Phone: [facility] 05-31-2023 00:53-0400 Heart rate 51 /min 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 Jaquan Cristhian Work Phone: [facility] 05-31-2023 00:53-0400 Respiratory rate 18 /min 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 Jaquan Cristhian Work Phone: [facility] 05-31-2023 00:53-0400 SaO2% (BldA) [Mass fraction] 91 % 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 Jaquan Cristhian Work Phone: [facility] 05-31-2023 00:53-0400 Systolic blood pressure 142 mm[Hg] 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 Jaquan Cristhian Work Phone: [facility] 05-30-2023 15:25-0400 Body height 167.64 cm 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 Jaquan Cristhian Work Phone: [facility] 05-30-2023 15:25-0400 Body temperature 97.7 [degF] 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 Jaquan Cristhian Work Phone: [facility] 05-30-2023 15:25-0400 Body weight 76.65 kg 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 Jaquan Cristhian Work Phone: [facility] 05-17-2023 16:03-0400 Diastolic blood pressure 82 mm[Hg] [facility] 05-17-2023 16:03-0400 Heart rate 72 /min [facility] 05-17-2023 16:03-0400 Mean blood pressure 95 mm[Hg] [facility] 05-17-2023 16:03-0400 Respiratory rate 17 /min [facility] 05-17-2023 16:03-0400 SaO2% (BldA) [Mass fraction] 100 % [facility] 05-17-2023 16:03-0400 Systolic blood pressure 120 mm[Hg] [facility] 05-17-2023 15:30-0400 Diastolic blood pressure 86 mm[Hg] [facility] 05-17-2023 15:30-0400 Heart rate 71 /min [facility] 05-17-2023 15:30-0400 Mean blood pressure 103 mm[Hg] [facility] 05-17-2023 15:30-0400 Respiratory rate 16 /min [facility] 05-17-2023 15:30-0400 SaO2% (BldA) [Mass fraction] 100 % [facility] 05-17-2023 15:30-0400 Systolic blood pressure 136 mm[Hg] [facility] 05-17-2023 15:00-0400 Diastolic blood pressure 78 mm[Hg] [facility] 05-17-2023 15:00-0400 Heart rate 70 /min [facility] 05-17-2023 15:00-0400 Mean blood pressure 97 mm[Hg] [facility] 05-17-2023 15:00-0400 Respiratory rate 15 /min [facility] 05-17-2023 14:16-0400 Body temperature 97.7 [degF] [facility] 05-17-2023 14:16-0400 Heart rate 74 /min [facility] 05-14-2023 13:06-0400 Hourly Rounding Moncho Paster [facility] 05-14-2023 13:06-0400 Promise to Return Moncho Paster [facility] 05-14-2023 12:06-0400 Hourly Rounding Moncho Paster [facility] 05-14-2023 12:06-0400 Promise to Return Moncho Paster [facility] 05-14-2023 11:32-0400 Hourly Rounding Moncho Paster [facility] 05-14-2023 11:32-0400 Promise to Return Moncho Paster [facility] 05-14-2023 10:08-0400 Heart rate 57 /min Moncho Paster [facility] 05-14-2023 10:08-0400 SaO2% (BldA) [Mass fraction] 100 % Moncho Paster [facility] 05-14-2023 10:08-0400 Diastolic blood pressure 80 mm[Hg] Moncho Paster [facility] 05-14-2023 10:08-0400 Mean blood pressure 93 mm[Hg] Moncho Paster [facility] 05-14-2023 10:08-0400 Systolic blood pressure 119 mm[Hg] Moncho Paster [facility] 05-14-2023 10:08-0400 Body temperature 97.34 [degF] Moncho Paster [facility] 05-14-2023 07:32-0400 Heart rate 57 /min Moncho Paster [facility] 05-14-2023 07:32-0400 SaO2% (BldA) [Mass fraction] 100 % Moncho Paster [facility] 05-14-2023 07:32-0400 Diastolic blood pressure 66 mm[Hg] Moncho Paster [facility] 05-14-2023 07:32-0400 Mean blood pressure 77 mm[Hg] Moncho Paster [facility] 05-14-2023 07:32-0400 Systolic blood pressure 100 mm[Hg] Moncho Paster [facility] 05-14-2023 07:31-0400 Body temperature 97.34 [degF] Moncho Paster [facility] 05-14-2023 05:00-0400 Blood Pressure Location Moncho Paster [facility] 05-14-2023 05:00-0400 Diastolic blood pressure 77 mm[Hg] Moncho Paster [facility] 05-14-2023 05:00-0400 Mean blood pressure 90 mm[Hg] Moncho Paster [facility] 05-14-2023 05:00-0400 Systolic blood pressure 116 mm[Hg] Moncho Paster [facility] 05-13-2023 23:38-0400 Heart rate 53 /min Moncho Paster [facility] 05-13-2023 23:38-0400 SaO2% (BldA) [Mass fraction] 100 % Moncho Paster [facility] 05-13-2023 23:38-0400 Respiratory rate 16 /min Moncho Paster [facility] 05-13-2023 23:37-0400 Mean blood pressure 92 mm[Hg] Moncho Paster [facility] 05-13-2023 23:00-0400 Blood Pressure Location Moncho Paster [facility] 05-13-2023 23:00-0400 Body temperature 97.34 [degF] Moncho Paster [facility] 05-13-2023 19:33-0400 Body temperature 97.52 [degF] Moncho Paster [facility] 05-13-2023 16:00-0400 Body temperature 98.06 [degF] Moncho Paster [facility] 05-13-2023 11:00-0400 Body temperature 98.24 [degF] Moncho Paster [facility] 05-12-2023 16:17-0400 Blood Pressure Location Moncho Paster [facility] 05-12-2023 16:00-0400 Respiratory rate 20 /min Moncho Paster [facility] 05-12-2023 15:55-0400 Mean blood pressure 86 mm[Hg] Moncho Paster [facility] 05-12-2023 15:55-0400 Respiratory rate 14 /min Moncho Paster [facility] 05-12-2023 15:50-0400 Mean blood pressure 87 mm[Hg] Moncho Paster [facility] 05-12-2023 15:50-0400 Respiratory rate 18 /min Moncho Paster [facility] 05-12-2023 15:36-0400 Body temperature 97.88 [degF] Moncho Paster [facility] 05-12-2023 15:30-0400 Respiratory rate 12 /min Moncho Paster [facility] 05-12-2023 15:25-0400 Respiratory rate 12 /min Moncho Paster [facility] 05-12-2023 13:19-0400 Heart rate 61 /min Moncho Paster [facility] 05-12-2023 09:32-0400 Heart rate 77 /min Moncho Paster [facility] 05-11-2023 16:43-0400 Diastolic blood pressure 67 mm[Hg] Mateusz Garcia [facility] 05-11-2023 16:43-0400 Heart rate 75 /min Mateusz Garcia [facility] 05-11-2023 16:43-0400 Mean blood pressure 83 mm[Hg] Mateusz Garcia [facility] 05-11-2023 16:43-0400 Respiratory rate 18 /min Mateusz Garcia [facility] 05-11-2023 16:43-0400 SaO2% (BldA) [Mass fraction] 100 % Mateusz Garcia [facility] 05-11-2023 16:43-0400 Systolic blood pressure 115 mm[Hg] Mateusz Garcia [facility] 05-11-2023 15:00-0400 Diastolic blood pressure 79 mm[Hg] Mateusz Jose [facility] 05-11-2023 15:00-0400 Heart rate 65 /min Mateusz Jose [facility] 05-11-2023 15:00-0400 Mean blood pressure 92 mm[Hg] Mateusz Jose [facility] 05-11-2023 15:00-0400 Systolic blood pressure 118 mm[Hg] Mateusz Jose [facility] 05-11-2023 14:30-0400 Heart rate 69 /min Mateusz Jose [facility] 05-11-2023 14:30-0400 Respiratory rate 18 /min Mateusz Jose [facility] 05-11-2023 14:30-0400 SaO2% (BldA) [Mass fraction] 100 % Mateusz Jose [facility] 05-11-2023 12:00-0400 Body temperature 97.7 [degF] Mateusz Jose [facility] 05-11-2023 12:00-0400 Diastolic blood pressure 83 mm[Hg] Mateusz Jose [facility] 05-11-2023 12:00-0400 Heart rate 73 /min Mateusz Jose [facility] 05-11-2023 12:00-0400 Systolic blood pressure 147 mm[Hg] Mateusz Jose [facility] 05-09-2023 16:20-0400 Diastolic blood pressure 67 mm[Hg] Mateusz Jose [facility] 05-09-2023 16:20-0400 Heart rate 75 /min Mateusz Jose [facility] 05-09-2023 16:20-0400 Mean blood pressure 82 mm[Hg] Mateusz Jose [facility] 05-09-2023 16:20-0400 Respiratory rate 16 /min Mateusz Jose [facility] 05-09-2023 16:20-0400 SaO2% (BldA) [Mass fraction] 97 % Mateusz Jose [facility] 05-09-2023 16:20-0400 Systolic blood pressure 112 mm[Hg] Mateusz Jose [facility] 05-09-2023 15:40-0400 Diastolic blood pressure 69 mm[Hg] Mateusz Jose [facility] 05-09-2023 15:40-0400 Heart rate 69 /min Mateusz Jose [facility] 05-09-2023 15:40-0400 Mean blood pressure 84 mm[Hg] Mateusz Jose [facility] 05-09-2023 15:40-0400 Respiratory rate 18 /min Mateusz Jose [facility] 05-09-2023 15:40-0400 SaO2% (BldA) [Mass fraction] 100 % Mateusz Jose [facility] 05-09-2023 15:40-0400 Systolic blood pressure 113 mm[Hg] Mateusz Jose [facility] 05-09-2023 14:00-0400 Diastolic blood pressure 80 mm[Hg] Mateusz Jose [facility] 05-09-2023 14:00-0400 Heart rate 78 /min Mateusz Jose [facility] 05-09-2023 14:00-0400 Mean blood pressure 96 mm[Hg] Mateusz Jose [facility] 05-09-2023 14:00-0400 Respiratory rate 19 /min Mateusz Jose [facility] 05-09-2023 14:00-0400 Systolic blood pressure 129 mm[Hg] Mateusz Jose [facility] 05-09-2023 11:47-0400 Body temperature 97.7 [degF] Mateusz Jose [facility] 05-09-2023 11:47-0400 Heart rate 107 /min Mateusz Jose [facility] 05-06-2023 21:11-0400 Diastolic blood pressure 61 mm[Hg] Mateusz Jose [facility] 05-06-2023 21:11-0400 Heart rate 55 /min Mateusz Jose [facility] 05-06-2023 21:11-0400 Mean blood pressure 74 mm[Hg] Mateusz Jose [facility] 05-06-2023 21:11-0400 Respiratory rate 16 /min Mateusz Jose [facility] 05-06-2023 21:11-0400 SaO2% (BldA) [Mass fraction] 100 % Mateusz Jose [facility] 05-06-2023 21:11-0400 Systolic blood pressure 100 mm[Hg] Mateusz Jose [facility] 05-06-2023 20:20-0400 Diastolic blood pressure 73 mm[Hg] Mateusz Jose [facility] 05-06-2023 20:20-0400 Heart rate 53 /min Mateusz Jose [facility] 05-06-2023 20:20-0400 Mean blood pressure 89 mm[Hg] Mateusz Jose [facility] 05-06-2023 20:20-0400 Respiratory rate 14 /min Mateusz Jose [facility] 05-06-2023 20:20-0400 SaO2% (BldA) [Mass fraction] 100 % Mateusz Jose [facility] 05-06-2023 20:20-0400 Systolic blood pressure 122 mm[Hg] Mateusz Jose [facility] 05-06-2023 19:30-0400 Diastolic blood pressure 87 mm[Hg] Mateusz Jose [facility] 05-06-2023 19:30-0400 Heart rate 72 /min Mateusz Jose [facility] 05-06-2023 19:30-0400 Mean blood pressure 105 mm[Hg] Mateusz Jose [facility] 05-06-2023 19:30-0400 Respiratory rate 16 /min Mateusz Jose [facility] 05-06-2023 19:30-0400 SaO2% (BldA) [Mass fraction] 100 % Mateusz Jose [facility] 05-06-2023 19:30-0400 Systolic blood pressure 141 mm[Hg] Mateusz Jose [facility] 05-06-2023 15:45-0400 Body temperature 98.78 [degF] Mateusz Jose [facility] 05-06-2023 15:45-0400 Heart rate 66 /min Mateusz Jose [facility] 05-06-2023 15:45-0400 Respiratory rate 18 /min Mateusz Jose [facility] 04-28-2023 09:49-0400 Body height 167.6 cm Kasie Avalos MD Work Phone: [facility] 04-28-2023 09:49-0400 Body temperature 96.6 [degF] Kasie Avalos MD Work Phone: [facility] 04-28-2023 09:49-0400 Body weight 79.38 kg Kasie Avalos MD Work Phone: [facility] 04-28-2023 09:49-0400 Diastolic blood pressure 75 mm[Hg] Kasie Avalos MD Work Phone: [facility] 04-28-2023 09:49-0400 Heart rate 80 /min Kasie Avalos MD Work Phone: [facility] 04-28-2023 09:49-0400 SaO2% (BldA) [Mass fraction] 100 % Kasie Avalos MD Work Phone: [facility] 04-28-2023 09:49-0400 Systolic blood pressure 106 mm[Hg] Kasie Avalos MD Work Phone: [facility] 04-06-2023 14:00-0500 Diastolic blood pressure 59 mm[Hg] 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 Jaquan Cristhian Work Phone: [facility] 04-06-2023 14:00-0500 Heart rate 59 /min 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 Jaquan Cristhian Work Phone: [facility] 04-06-2023 14:00-0500 Respiratory rate 16 /min 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 Jaquan Cristhian Work Phone: [facility] 04-06-2023 14:00-0500 SaO2% (BldA) [Mass fraction] 98 % 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 Jaquan Cristhian Work Phone: [facility] 04-06-2023 14:00-0500 Systolic blood pressure 113 mm[Hg] 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 Jaquan Cristhian Work Phone: [facility] 04-06-2023 09:47-0500 Body height 167.64 cm 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 Jaquan Cristhian Work Phone: [facility] 04-06-2023 09:47-0500 Body temperature 96.7 [degF] 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 Jaquan Cristhian Work Phone: [facility] 04-06-2023 09:47-0500 Body weight 81.1 kg 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 Jaquan Cristhian Work Phone: [facility] 04-02-2023 17:00-0500 Diastolic blood pressure 63 mm[Hg] [facility] 04-02-2023 17:00-0500 Heart rate 75 /min [facility] 04-02-2023 17:00-0500 Mean blood pressure 80 mm[Hg] [facility] 04-02-2023 17:00-0500 SaO2% (BldA) [Mass fraction] 99 % [facility] 04-02-2023 17:00-0500 Systolic blood pressure 113 mm[Hg] [facility] 04-02-2023 16:00-0500 Diastolic blood pressure 71 mm[Hg] [facility] 04-02-2023 16:00-0500 Heart rate 71 /min [facility] 04-02-2023 16:00-0500 Mean blood pressure 88 mm[Hg] [facility] 04-02-2023 16:00-0500 Respiratory rate 14 /min [facility] 04-02-2023 16:00-0500 SaO2% (BldA) [Mass fraction] 100 % [facility] 04-02-2023 16:00-0500 Systolic blood pressure 123 mm[Hg] [facility] 04-02-2023 15:00-0500 Diastolic blood pressure 55 mm[Hg] [facility] 04-02-2023 15:00-0500 Heart rate 76 /min [facility] 04-02-2023 15:00-0500 Mean blood pressure 73 mm[Hg] [facility] 04-02-2023 15:00-0500 Respiratory rate 17 /min [facility] 04-02-2023 15:00-0500 Systolic blood pressure 109 mm[Hg] [facility] 04-02-2023 10:54-0500 Body temperature 98.6 [degF] [facility] 04-02-2023 10:54-0500 Heart rate 73 /min [facility] 04-02-2023 10:54-0500 Respiratory rate 16 /min [facility] 03-20-2023 08:41-0500 Body temperature 97.5 [degF] Melisa Barker MD Work Phone: [facility] 03-20-2023 08:41-0500 Diastolic blood pressure 74 mm[Hg] Melisa Barker MD Work Phone: [facility] 03-20-2023 08:41-0500 Heart rate 62 /min Melisa Barker MD Work Phone: [facility] 03-20-2023 08:41-0500 Respiratory rate 18 /min Melisa Barker MD Work Phone: [facility] 03-20-2023 08:41-0500 SaO2% (BldA) [Mass fraction] 98 % Melisa Barker MD Work Phone: [facility] 03-20-2023 08:41-0500 Systolic blood pressure 131 mm[Hg] Melisa Barker MD Work Phone: [facility] 03-16-2023 13:47-0500 Body height 167.6 cm Melisa Barker MD Work Phone: [facility] 03-16-2023 13:47-0500 Body mass index (BMI) [Ratio] 32.99 kg/m2 Melisa Barker MD Work Phone: [facility] 03-16-2023 13:47-0500 Body weight 92.7 kg Melisa Barker MD Work Phone: [facility] 03-16-2023 12:00-0500 Diastolic blood pressure 70 mm[Hg] Earnest Johnie [facility] 03-16-2023 12:00-0500 Heart rate 69 /min Earnest Johnie [facility] 03-16-2023 12:00-0500 Mean blood pressure 84 mm[Hg] Earnest Johnie [facility] 03-16-2023 12:00-0500 Systolic blood pressure 113 mm[Hg] Earnest Johnie [facility] 03-16-2023 11:30-0500 Diastolic blood pressure 86 mm[Hg] Earnest Johnie [facility] 03-16-2023 11:30-0500 Heart rate 61 /min Earnest Johnie [facility] 03-16-2023 11:30-0500 Mean blood pressure 102 mm[Hg] Earnest Johnie [facility] 03-16-2023 11:30-0500 Respiratory rate 16 /min Earnest Johnie [facility] 03-16-2023 11:30-0500 Systolic blood pressure 133 mm[Hg] Earnest Johnie [facility] 03-16-2023 11:07-0500 Diastolic blood pressure 83 mm[Hg] Earnest Johnie [facility] 01-30-2024 11:07-0500 Heart rate 63 /min Earnest Blancoe [facility] 03-16-2023 11:07-0500 Mean blood pressure 94 mm[Hg] Earnest Johnie [facility] 03-16-2023 11:07-0500 SaO2% (BldA) [Mass fraction] 100 % Earnest Johnie [facility] 03-16-2023 11:07-0500 Systolic blood pressure 116 mm[Hg] Earnest Johnie [facility] 03-16-2023 10:21-0500 Body temperature 97.52 [degF] Earnest Johnie [facility] 03-16-2023 10:21-0500 Heart rate 70 /min Earnest Blancoe [facility] 03-16-2023 10:21-0500 SaO2% (BldA) [Mass fraction] 100 % Earnest Johnie [facility] 03-15-2023 18:00-0500 Diastolic blood pressure 75 mm[Hg] Earnest Johnie [facility] 03-15-2023 18:00-0500 Heart rate 68 /min Earnest Blancoe [facility] 03-15-2023 18:00-0500 Mean blood pressure 94 mm[Hg] Earnest Johnie [facility] 03-15-2023 18:00-0500 Respiratory rate 16 /min Earnest Johnie [facility] 03-15-2023 18:00-0500 SaO2% (BldA) [Mass fraction] 98 % Earnest Johnie [facility] 03-15-2023 18:00-0500 Systolic blood pressure 131 mm[Hg] Earnest Johnie [facility] 03-15-2023 17:19-0500 Diastolic blood pressure 66 mm[Hg] Earnest Johnie [facility] 03-15-2023 17:19-0500 Heart rate 56 /min Earnest Johnie [facility] 03-15-2023 17:19-0500 Mean blood pressure 79 mm[Hg] Earnest Johnie [facility] 03-15-2023 17:19-0500 Respiratory rate 18 /min Earnest Johnie [facility] 03-15-2023 17:19-0500 SaO2% (BldA) [Mass fraction] 95 % Earnest Johnie [facility] 03-15-2023 17:19-0500 Systolic blood pressure 104 mm[Hg] Earnest Johnie [facility] 03-15-2023 16:23-0500 Diastolic blood pressure 72 mm[Hg] Earnest Johnie [facility] 03-15-2023 16:23-0500 Heart rate 58 /min Earnest Johnie [facility] 03-15-2023 16:23-0500 Mean blood pressure 90 mm[Hg] Earnest Johnie [facility] 03-15-2023 16:23-0500 Respiratory rate 20 /min Earnest Johnie [facility] 03-15-2023 16:23-0500 SaO2% (BldA) [Mass fraction] 99 % Earnest Johnie [facility] 03-15-2023 16:23-0500 Systolic blood pressure 126 mm[Hg] Earnest Johnie [facility] 03-15-2023 11:41-0500 Body temperature 97.88 [degF] Earnest Jett [facility] 03-15-2023 11:41-0500 Heart rate 71 /min Earnest Jett [facility] 03-15-2023 11:41-0500 Respiratory rate 26 /min Earnest Jett [facility] 03-10-2023 11:50-0500 Body temperature 97.9 [degF] Sherry Magaña MD Work Phone: [facility] 03-10-2023 11:50-0500 Diastolic blood pressure 85 mm[Hg] Sherry Magaña MD Work Phone: [facility] 03-10-2023 11:50-0500 Heart rate 73 /min Sherry Magaña MD Work Phone: [facility] 03-10-2023 11:50-0500 Respiratory rate 18 /min Sherry Magaña MD Work Phone: [facility] 03-10-2023 11:50-0500 SaO2% (BldA) [Mass fraction] 100 % Sherry Magaña MD Work Phone: [facility] 03-10-2023 11:50-0500 Systolic blood pressure 137 mm[Hg] Sherry Magaña MD Work Phone: [facility] 03-10-2023 08:32-0500 Body mass index (BMI) [Ratio] 29.69 kg/m2 Sherry Magaña MD Work Phone: [facility] 03-10-2023 08:32-0500 Body weight 83.4 kg Sherry Magaña MD Work Phone: [facility] 03-05-2023 06:42-0500 Body height 167.6 cm Sherry Magaña MD Work Phone: [facility] 02-13-2023 17:30-0500 Diastolic blood pressure 73 mm[Hg] 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 Jaquan Cristhian Work Phone: [facility] 02-13-2023 17:30-0500 Heart rate 61 /min 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 Jaquan Cristhian Work Phone: [facility] 02-13-2023 17:30-0500 Respiratory rate 18 /min 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 Jaquan Cristhian Work Phone: [facility] 02-13-2023 17:30-0500 SaO2% (BldA) [Mass fraction] 100 % 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 Jaquan Cristhian Work Phone: [facility] 02-13-2023 17:30-0500 Systolic blood pressure 121 mm[Hg] 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 Jaquan Cristhian Work Phone: [facility] 02-13-2023 10:43-0500 Body height 167.64 cm 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 Jaquan Cristhian Work Phone: [facility] 02-13-2023 10:43-0500 Body weight 83 kg 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 Jaquan Cristhian Work Phone: [facility] 02-13-2023 10:42-0500 Body temperature 98.2 [degF] 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 Jaquan Cristhian Work Phone: [facility] 12-31-2022 15:49-0500 Diastolic blood pressure 82 mm[Hg] Mateusz Jose [facility] 12-31-2022 15:49-0500 Heart rate 81 /min Mateusz Jose [facility] 12-31-2022 15:49-0500 Mean blood pressure 96 mm[Hg] Mateusz Jose [facility] 12-31-2022 15:49-0500 Respiratory rate 16 /min Mateusz Jose [facility] 12-31-2022 15:49-0500 SaO2% (BldA) [Mass fraction] 100 % Mateusz Jose [facility] 12-31-2022 15:49-0500 Systolic blood pressure 124 mm[Hg] Mateusz Jose [facility] 12-31-2022 15:40-0500 Hourly Rounding Mateusz Jose [facility] 12-31-2022 15:40-0500 Promise to Return Mateusz Jose [facility] 12-31-2022 15:00-0500 Diastolic blood pressure 78 mm[Hg] Mateusz Jose [facility] 12-31-2022 15:00-0500 Heart rate 76 /min Mateusz Jose [facility] 12-31-2022 15:00-0500 Mean blood pressure 91 mm[Hg] Mateusz Jose [facility] 12-31-2022 15:00-0500 Systolic blood pressure 117 mm[Hg] Mateusz Jose [facility] 12-31-2022 14:40-0500 Hourly Rounding Mateusz Jose [facility] 12-31-2022 14:40-0500 Promise to Return Mateusz Jose [facility] 12-31-2022 14:00-0500 Diastolic blood pressure 83 mm[Hg] Mateusz Jose [facility] 12-31-2022 14:00-0500 Heart rate 71 /min Mateusz Jose [facility] 12-31-2022 14:00-0500 Mean blood pressure 99 mm[Hg] Mateusz Jose [facility] 12-31-2022 14:00-0500 Systolic blood pressure 132 mm[Hg] Mateusz Garcia [facility] 12-31-2022 13:40-0500 Hourly Rounding Mateusz Garcia [facility] 12-31-2022 13:40-0500 Promise to Return Mateusz Garcia [facility] 12-31-2022 12:42-0500 Body temperature 97.7 [degF] Mateusz Garcia [facility] 12-31-2022 12:42-0500 Heart rate 88 /min Mateusz Garcia [facility] 12-04-2022 09:54-0400 Body height 166 cm Agustin [...] 167.6 cm Deacon Kat MD Work Phone: [facility] [...] 82 mm[Hg] Dimitri Walker MD [facility] 11-02-2022 13:52-0400 Heart rate 82 /min Dimitri Walker MD Work Phone: [facility] 11-02-2022 13:52-0400 Respiratory rate 18 /min Dimitri Walker MD Work Phone: [email or web address] [facility] 11-02-2022 13:52-0400 Systolic blood pressure 128 mm[Hg] Dimitri Walker MD Work Phone: [employer] [facility] 11-02-2022 10:35-0400 Body mass index (BMI) [Ratio] 30.18 kg/m2 Dimitri Walker MD Work Phone: [employer] 11-02-2022 10:35-0400 Body weight 84.82 kg Dimitri Walker MD Work Phone: [facility] [employer] [facility] Comment on above: stand up scale triage room 11-02-2022 10:34-0400 Body temperature 98.29 [degF] Dimitri Walker MD Work Phone: [email or web address] [facility] 11-02-2022 10:34-0400 SaO2% (BldA) [Mass fraction] 98 % Dimitri Walker MD Work Phone: [email or web address] [facility] 10-31-2022 08:30-0400 Diastolic blood pressure 67 mm[Hg] Jalyn Suresh DO Work Phone: [facility] [employer] 10-31-2022 08:30-0400 Systolic blood pressure 120 mm[Hg] Jalyn Suresh DO Work Phone: [facility] [employer] 10-31-2022 06:32-0400 Body temperature 97.7 [degF] Jalyn Suresh DO Work Phone: [employer] 10-31-2022 06:32-0400 Heart rate 92 /min Jalyn Suresh DO Work Phone: [facility] [employer] 10-31-2022 06:32-0400 Respiratory rate 19 /min Jalyn Suresh DO Work Phone: [facility] [employer] 10-31-2022 06:32-0400 SaO2% (BldA) [Mass fraction] 100 % Jalyn Suresh DO Work Phone: [facility] [employer] 10-20-2022 11:52-0400 Diastolic blood pressure 86 mm[Hg] Earnest Jett [facility] 10-20-2022 11:52-0400 Heart rate 75 /min Earnest Jett [facility] 10-20-2022 11:52-0400 Respiratory rate 15 /min Earnest Jett [facility] 10-20-2022 11:52-0400 SaO2% (BldA) [Mass fraction] 99 % Earnest Johnie [facility] 10-20-2022 11:52-0400 Systolic blood pressure 141 mm[Hg] Earnest Johnie [facility] 10-20-2022 10:31-0400 Diastolic blood pressure 70 mm[Hg] Earnest Johnie [facility] 10-20-2022 10:31-0400 Heart rate 70 /min Earnest Johnie [facility] 10-20-2022 10:31-0400 Mean blood pressure 92 mm[Hg] Earnest Johnie [facility] 10-20-2022 10:31-0400 Respiratory rate 16 /min Earnest Johnie [facility] 10-20-2022 10:31-0400 SaO2% (BldA) [Mass fraction] 100 % Earnest Johnie [facility] 10-20-2022 10:31-0400 Systolic blood pressure 137 mm[Hg] Earnest Johnie [facility] 10-20-2022 09:17-0400 Diastolic blood pressure 63 mm[Hg] Earnest Johnie [facility] 10-20-2022 09:17-0400 Heart rate 77 /min Earnest Johnie [facility] 10-20-2022 09:17-0400 Mean blood pressure 85 mm[Hg] Earnest Johnie [facility] 10-20-2022 09:17-0400 Respiratory rate 18 /min Earnest Johnie [facility] 10-20-2022 09:17-0400 SaO2% (BldA) [Mass fraction] 100 % Earnest Johnie [facility] 10-20-2022 09:17-0400 Systolic blood pressure 128 mm[Hg] Earnest Johnie [facility] 10-20-2022 08:17-0400 Body temperature 97.88 [degF] Earnest Johnie [facility] 10-19-2022 13:30-0400 Diastolic blood pressure 82 mm[Hg] Earnest Johnie [facility] 10-19-2022 13:30-0400 Heart rate 67 /min Earnest Johnie [facility] 10-19-2022 13:30-0400 Mean blood pressure 100 mm[Hg] Earnest Johnie [facility] 10-19-2022 13:30-0400 Respiratory rate 20 /min Earnest Johnie [facility] 10-19-2022 13:30-0400 SaO2% (BldA) [Mass fraction] 100 % Earnest Johnie [facility] 10-19-2022 13:30-0400 Systolic blood pressure 136 mm[Hg] Earnest Johnie [facility] 10-19-2022 13:00-0400 Heart rate 61 /min Earnest Johnie [facility] 10-19-2022 13:00-0400 Respiratory rate 18 /min Earnest Johnie [facility] 10-19-2022 13:00-0400 Systolic blood pressure 127 mm[Hg] Earnest Johnie [facility] 10-19-2022 12:30-0400 Diastolic blood pressure 80 mm[Hg] Earnest Johnie [facility] 10-19-2022 12:30-0400 Heart rate 60 /min Earnest Jett [facility] 10-19-2022 12:30-0400 Mean blood pressure 97 mm[Hg] Earnest Jett [facility] 10-19-2022 12:30-0400 Respiratory rate 20 /min Earnest Jett [facility] 10-19-2022 12:30-0400 SaO2% (BldA) [Mass fraction] 100 % Earnest Jett [facility] 10-19-2022 12:30-0400 Systolic blood pressure 132 mm[Hg] Earnest Jett [facility] 10-19-2022 08:34-0400 Body temperature 96.62 [degF] Earnest Jett [facility] 10-19-2022 08:34-0400 Heart rate 73 /min Earnest Jett [facility] 09-28-2022 07:54-0400 Body height 167.[address] Work Phone: [facility] 09-28-2022 07:54-0400 Body weight 83.[address] Work Phone: [facility] 09-18-2022 15:12-0400 Body height 167.6 cm Breanna Stern INVENTORY ADMINISTRATOR.REAL ESTATE AGENT Work Phone: [facility] 09-18-2022 15:12-0400 Body temperature 97.5 [degF] Breanna Stern INVENTORY ADMINISTRATOR.REAL ESTATE AGENT Work Phone: [facility] 09-18-2022 15:12-0400 Body weight 83.46 kg Breanna Stern INVENTORY ADMINISTRATOR.REAL ESTATE AGENT Work Phone: [facility] 09-18-2022 15:12-0400 Diastolic blood pressure 88 mm[Hg] Breanna Stern INVENTORY ADMINISTRATOR.REAL ESTATE AGENT Work Phone: [facility] 09-18-2022 15:12-0400 Heart rate 65 /min Breanna Stern INVENTORY ADMINISTRATOR.REAL ESTATE AGENT Work Phone: [facility] 09-18-2022 15:12-0400 SaO2% (BldA) [Mass fraction] 99 % Breanna Stern INVENTORY ADMINISTRATOR.REAL ESTATE AGENT Work Phone: [facility] 09-18-2022 15:12-0400 Systolic blood pressure 118 mm[Hg] Breanna Stern INVENTORY ADMINISTRATOR.REAL ESTATE AGENT Work Phone: [facility] 07-29-2022 08:40-0400 Blood Pressure Location Rajni Lue [facility] 07-29-2022 08:40-0400 Diastolic blood pressure 86 mm[Hg] Rajni Lue [facility] 07-29-2022 08:40-0400 Heart rate 71 /min Rajni Lue [facility] 07-29-2022 08:40-0400 Systolic blood pressure 127 mm[Hg] Rajni Lue [facility] 07-22-2022 10:08-0400 Body height 167.6 cm Kasie Avalos MD Work Phone: [facility] 07-22-2022 10:08-0400 Body temperature 98.1 [degF] Kasie Avalos MD Work Phone: [facility] [...] 167.6 cm Aliyah Ziganti PA-C Work Phone: [facility] 06-12-2022 10:00-0400 Body temperature 97.5 [degF] Aliyah Ziganti PA-C Work Phone: [facility] 06-12-2022 10:00-0400 Body weight 84.37 kg Aliyah Ziganti PA-C Work Phone: [facility] 06-12-2022 10:00-0400 Diastolic blood pressure 78 mm[Hg] Aliyah Ziganti PA-C Work Phone: [facility] 06-12-2022 10:00-0400 Heart rate 68 /min Aliyah Ziganti PA-C Work Phone: [facility] 06-12-2022 10:00-0400 Systolic blood pressure 123 mm[Hg] Aliyah Ziganti PA-C Work Phone: [facility] 06-10-2022 17:43-0400 Diastolic blood pressure 74 mm[Hg] [facility] 06-10-2022 17:43-0400 Heart rate 65 /min [facility] 06-10-2022 17:43-0400 Mean blood pressure 90 mm[Hg] [facility] 06-10-2022 17:43-0400 Respiratory rate 16 /min [facility] 06-10-2022 17:43-0400 SaO2% (BldA) [Mass fraction] 100 % [facility] 06-10-2022 17:43-0400 Systolic blood pressure 122 mm[Hg] [facility] 06-10-2022 17:00-0400 Diastolic blood pressure 77 mm[Hg] [facility] 06-10-2022 17:00-0400 Heart rate 66 /min [facility] 06-10-2022 17:00-0400 Mean blood pressure 94 mm[Hg] [facility] 06-10-2022 17:00-0400 Systolic blood pressure 129 mm[Hg] [facility] 06-10-2022 16:00-0400 Heart rate 83 /min [facility] 06-10-2022 16:00-0400 Mean blood pressure 93 mm[Hg] [facility] 06-10-2022 16:00-0400 Systolic blood pressure 130 mm[Hg] [facility] 06-10-2022 12:32-0400 Body temperature 97.7 [degF] [facility] 06-10-2022 12:32-0400 Heart rate 88 /min [facility] 06-10-2022 12:32-0400 Respiratory rate 18 /min [facility] 03-06-2022 15:30-0500 Diastolic blood pressure 70 [...] 09:33-0500 Body weight 89.81 kg Breanna Stern INVENTORY ADMINISTRATOR.REAL ESTATE AGENT Work Phone: [facility] 02-04-2022 09:23-0500 Body height 167.[address] Work Phone: [facility] 02-04-2022 09:23-0500 Body weight 93.[address] Work Phone: [facility] 02-03-2022 14:55-0500 Body height 167.6 cm Breanna Stern INVENTORY ADMINISTRATOR.REAL ESTATE AGENT Work Phone: [facility] 02-03-2022 14:55-0500 Body temperature 97 [degF] Breanna Stern INVENTORY ADMINISTRATOR.REAL ESTATE AGENT Work Phone: [facility] 02-03-2022 14:55-0500 Body weight 93.44 kg Breanna Stern APRN.REAL ESTATE AGENT Work Phone: [facility] 02-03-2022 14:55-0500 Diastolic blood pressure 81 mm[Hg] Breanna Stern APRN.REAL ESTATE AGENT Work Phone: [facility] 02-03-2022 14:55-0500 Heart rate 76 /min Breanna Stern INVENTORY ADMINISTRATOR.REAL ESTATE AGENT Work Phone: [facility] 02-03-2022 14:55-0500 SaO2% (BldA) [Mass fraction] 99 % Breanna Stern INVENTORY ADMINISTRATOR.REAL ESTATE AGENT Work Phone: [facility] 02-03-2022 14:55-0500 Systolic blood pressure 128 mm[Hg] Breanna Stern INVENTORY ADMINISTRATOR.REAL ESTATE AGENT Work Phone: [facility] 01-28-2022 08:41-0500 [...] 10:10-0500 Diastolic blood pressure 76 mm[Hg] Britt Bradshaw MD Work Phone: [facility] 12-25-2021 10:10-0500 Heart rate 74 /min Britt Bradshaw MD Work Phone: [facility] 12-25-2021 10:10-0500 Respiratory rate 18 /min Britt Bradshaw MD Work Phone: [facility] 12-25-2021 10:10-0500 SaO2% (BldA) [Mass fraction] 100 % Britt Bradshaw MD Work Phone: [facility] 12-25-2021 10:10-0500 Systolic blood pressure 140 mm[Hg] Britt Bradshaw MD Work Phone: [facility] 12-25-2021 08:26-0500 Body height 167.6 cm Britt Bradshaw MD Work Phone: [facility] 12-25-2021 08:26-0500 Body temperature 98.1 [degF] Britt Bradshaw MD Work Phone: [facility] 12-25-2021 08:26-0500 Body weight 92.99 kg Britt Bradshaw MD Work Phone: [facility] 10-09-2021 15:44-0400 Body height 167.6 cm Sabina Vacco INVENTORY ADMINISTRATOR.REAL ESTATE AGENT Work Phone: [facility] 10-09-2021 15:44-0400 Body weight 89.81 kg Sabina Vacco INVENTORY ADMINISTRATOR.REAL ESTATE AGENT Work Phone: [facility] 08-30-2021 03:47-0400 Diastolic blood pressure 70 mm[Hg] Pablo Atwood DO Work Phone: [employer] 08-30-2021 03:47-0400 Systolic blood pressure 130 mm[Hg] Pablo Atwood DO Work Phone: [employer] 08-30-2021 03:46-0400 Body temperature 100.4 [degF] Pablo Atwood DO Work Phone: [employer] 08-30-2021 03:46-0400 Heart rate 107 /min Pablo Atwood DO Work Phone: [employer] 08-30-2021 03:46-0400 Respiratory rate 19 /min Pablo Atwood DO Work Phone: [employer] 08-30-2021 03:46-0400 SaO2% (BldA) [Mass fraction] 96 % Pablo Atwood DO Work Phone: [employer] 08-28-2021 07:54-0400 Body height 167.[address] Work Phone: [facility] 08-28-2021 07:54-0400 Body weight 90.[address] Work Phone: [facility] 08-17-2021 12:00-0400 Body height 167.64 cm Shanna Granadosault Other [employer] Other 08-17-2021 12:00-0400 Body mass index (BMI) [Ratio] 33.08 kg/m2 Shanna Granadosault Other [employer] Other 08-17-2021 12:00-0400 Body temperature 98.1 [degF] Shanna Granadosault Other [employer] Other 08-17-2021 12:00-0400 Body weight 92.99 kg Shanna Granadosault Other [employer] Other 08-17-2021 12:00-0400 Diastolic blood pressure 80 mm[Hg] Shanna Granadosault Other [employer] Other 08-17-2021 12:00-0400 Respiratory rate 18 /min Shanna Slade Other [employer] Other 08-17-2021 12:00-0400 SaO2% (BldA) [Mass fraction] 99 % Shanna Granadosault Other [employer] Other 08-17-2021 12:00-0400 Systolic blood pressure 137 mm[Hg] Shanna Slade Other [employer] Other 07-27-2021 14:25-0400 Respiratory rate 18 /min Angela Do MD Work Phone: [employer] 07-27-2021 14:03-0400 SaO2% (BldA) [Mass fraction] 98 % Angela Do MD Work Phone: [facility] [employer] 07-27-2021 13:27-0400 Diastolic blood pressure 44 mm[Hg] Angela Do MD Work Phone: [employer] 07-27-2021 13:27-0400 Systolic blood pressure 110 mm[Hg] Angela Do MD Work Phone: [employer] 07-27-2021 10:18-0400 Body mass index (BMI) [Ratio] 31.47 kg/m2 Angela Do MD Work Phone: [employer] 07-27-2021 10:18-0400 Body temperature 98.6 [degF] Angela Do MD Work Phone: [employer] 07-27-2021 10:18-0400 Body weight 88.45 kg Angela Do MD Work Phone: [employer] 07-27-2021 10:18-0400 Heart rate 71 /min Angela Do MD Work Phone: [employer] 03-31-2021 11:00-0500 Body height 167.64 cm Shanna June Other [employer] Other 03-31-2021 11:00-0500 Body mass index (BMI) [Ratio] 33.08 kg/m2 Shanna June Other [employer] Other 03-31-2021 11:00-0500 Body temperature 98 [degF] Shanna June Other [employer] Other 03-31-2021 11:00-0500 Body weight 92.99 kg Shanna June Other [employer] Other 03-31-2021 11:00-0500 Diastolic blood pressure 91 mm[Hg] Shanna June Other [employer] Other 03-31-2021 11:00-0500 Respiratory rate 18 /min Shanna June Other [employer] Other 03-31-2021 11:00-0500 SaO2% (BldA) [Mass fraction] 100 % Shanna June Other [employer] Other 03-31-2021 11:00-0500 Systolic blood pressure 142 mm[Hg] Shanna June Other [employer] Other 01-28-2021 12:00-0500 Body height 167.64 cm Shanna June Other [employer] Other 01-28-2021 12:00-0500 Body mass index (BMI) [Ratio] 33.08 kg/m2 Shanna June Other [employer] Other 01-28-2021 12:00-0500 Body temperature 98 [degF] Shanna June Other [employer] Other 01-28-2021 12:00-0500 Body weight 92.99 kg Shanna June Other [employer] Other 01-28-2021 12:00-0500 Diastolic blood pressure 92 mm[Hg] Shanna Granadosault Other [employer] Other 01-28-2021 12:00-0500 Respiratory rate 18 /min Shanna June Other [employer] Other 01-28-2021 12:00-0500 SaO2% (BldA) [Mass fraction] 100 % Shanna June Other [employer] Other 01-28-2021 12:00-0500 Systolic blood pressure 143 mm[Hg] Shanna June Other [employer] Other 12-17-2020 17:30-0400 Body height 167.64 cm Shanna June Other [employer] Other 12-17-2020 17:30-0400 Body mass index (BMI) [Ratio] 32.92 kg/m2 Shanna June Other [employer] Other 12-17-2020 17:30-0400 Body temperature 98.2 [degF] Shanna June Other [employer] Other 12-17-2020 17:30-0400 Body weight 92.53 kg Shanna June Other [employer] Other 12-17-2020 17:30-0400 Diastolic blood pressure 71 mm[Hg] Shanna June Other [employer] Other 12-17-2020 17:30-0400 Respiratory rate 18 /min Shanna June Other [employer] Other 12-17-2020 17:30-0400 SaO2% (BldA) [Mass fraction] 100 % Shanna June Other [employer] Other 12-17-2020 17:30-0400 Systolic blood pressure 117 mm[Hg] Shanna June Other [employer] Other 12-14-2020 15:07-0400 Body height 167.6 cm Shanna June INVENTORY ADMINISTRATOR - AUTO DRIVER Work Phone: [employer] Work Phone: 12-14-2020 15:07-0400 Body mass index (BMI) [Ratio] 32.77 kg/m2 Shanna June INVENTORY ADMINISTRATOR - AUTO DRIVER Work Phone: [employer] Work Phone: 12-14-2020 15:07-0400 Body temperature 98.8 [degF] Shanna June INVENTORY ADMINISTRATOR - AUTO DRIVER Work Phone: [employer] Work Phone: 12-14-2020 15:07-0400 Body weight 92.08 kg Shanna June INVENTORY ADMINISTRATOR - AUTO DRIVER Work Phone: [employer] Work Phone: 12-14-2020 15:07-0400 Diastolic blood pressure 90 mm[Hg] Shanna June INVENTORY ADMINISTRATOR - AUTO DRIVER Work Phone: [employer] Work Phone: 12-14-2020 15:07-0400 Heart rate 85 /min Shanna June INVENTORY ADMINISTRATOR - AUTO DRIVER Work Phone: [employer] Work Phone: 12-14-2020 15:07-0400 Respiratory rate 20 /min Shanna June INVENTORY ADMINISTRATOR - AUTO DRIVER Work Phone: [employer] Work Phone: 12-14-2020 15:07-0400 SaO2% (BldA) [Mass fraction] 100 % Shanna June INVENTORY ADMINISTRATOR - AUTO DRIVER Work Phone: [facility] [employer] Work Phone: 12-14-2020 15:07-0400 Systolic blood pressure 139 mm[Hg] Shanna June INVENTORY ADMINISTRATOR - AUTO DRIVER Work Phone: [facility] [employer] Work Phone: 07-02-2020 13:16-0400 Diastolic blood pressure 56 mm[Hg] Vaughn Ceja MD Work Phone: [facility] 07-02-2020 13:16-0400 Heart rate 71 /min Vaughn Ceja MD Work Phone: [employer] [facility] 07-02-2020 13:16-0400 Respiratory rate 18 /min Vaughn Ceja MD Work Phone: [facility] 07-02-2020 13:16-0400 SaO2% (BldA) [Mass fraction] 99 % Vaughn Ceja MD Work Phone: [facility] 07-02-2020 13:16-0400 Systolic blood pressure 165 mm[Hg] Vaughn Ceja MD Work Phone: [employer] [facility] 07-02-2020 12:44-0400 Body temperature 97.39 [degF] Vaughn Ceja MD Work Phone: [employer] [facility] 07-02-2020 12:35-0400 Body height 167.6 cm Vaughn [facility]ja MD [facility] 07-02-2020 12:35-0400 Body mass index (BMI) [Ratio] 37.12 kg/m2 Vaughn Ceja MD Work Phone: [employer] [facility] 07-02-2020 12:35-0400 Body weight 104.33 kg Vaughn Ceja MD Work Phone: [facility] 01-30-2020 17:34-0500 BP Diastolic 76 mm[Hg] Agustin Gustafson [facility] 01-30-2020 17:34-0500 BP Systolic 139 mm[Hg] [facility] 01-30-2020 17:34-0500 Pulse (Heart Rate) 87 /min Agustin De La Fuente [facility] 01-30-2020 17:34-0500 Pulse Oximetry 100 % Agustin [facility] 01-30-2020 17:34-0500 Respiratory Rate 18 /min Agustin [facility] 01-30-2020 13:22-0500 Height 167.6 cm Agustin [facility] 01-30-2020 13:16-0500 Body Temperature 97.81 [degF] [facility] Encounters Encounter Date Encounter Type Care Provider Facility Start: 09-22-2023 End: 09-22-2023 Emergency department patient visit THOMAS CALIX Facility:[facility] Start: 09-20-2023 End: 09-20-2023 ambulatory DEACON KAT Facility:[facility] Start: 09-20-2023 End: 09-20-2023 Telemedicine consultation with patient Deacon Kat MD Work Phone: General Surgery Start: 09-20-2023 End: 09-20-2023 Admission to same day surgery center Deacon Kat MD Work Phone: General Surgery Comment on above: History of gastric b ypass (Primary Dx); Left upper quadrant abdominal pain Refill Request Start: 09-18-2023 End: 09-18-2023 Emergency department patient visit THOMAS CALIX Facility:[facility] Start: 09-17-2023 End: 09-17-2023 Emergency department patient visit SERENA STALEY MD Facility:[facility] Start: 09-12-2023 End: 09-12-2023 Emergency department patient visit CORIE CRAFT Facility:[facility] Start: 09-11-2023 End: 09-11-2023 Emergency department patient visit THOMAS CALIX Facility:[facility] Start: 09-09-2023 Admission to [facility] Deacon Kat MD Work Phone: General Surgery Comment on above: 10/20/2023 (Diagnostic Laparoscopy) Start: 09-09-2023 ambulatory Deacon sousa MD Work Phone: General Surgery Start: 09-09-2023 Patient encounter status Deacon Kat MD Work Phone: [facility] Start: 09-08-2023 End: 09-08-2023 ambulatory [facility] Start: 09-08-2023 End: 09-08-2023 Patient encounter procedure Kasie Avalos MD Work Phone: Gastroenterology Comment on above: Multiple gastric ulc ers (Primary Dx); LUQ pain; Gastroesophageal reflux disease with esophagitis without hemorrhage; Constipation, unspecified constipation type Start: 09-02-2023 Orders Only Kasie Avalos MD Work Phone: Gastroenterology Start: 09-01-2023 End: 09-01-2023 ambulatory TINO MONAHAN Not Available Start: 08-30-2023 End: 08-31-2023 ambulatory [facility] Facility:[facility] Start: 08-30-2023 End: 08-31-2023 Nursing evaluation of patient and report Nurse [facility] 2 Work Phone: Gastroenterology Comment on above: Gastroesophageal ref lux disease, unspecified whether esophagitis present (Primary Dx) Start: 08-26-2023 End: 08-26-2023 Nursing evaluation of patient and report Nurse [facility] 2 Work Phone: Gastroenterology Comment on above: Gastroesophageal ref lux disease, unspecified whether esophagitis present Start: 08-26-2023 End: 08-26-2023 ambulatory [facility] Facility:[facility] Start: 08-26-2023 End: 08-26-2023 Subsequent hospital visit by physician Britt Bradshaw MD Work Phone: Gastroenterology Comment on above: Gastroesophageal ref lux disease, unspecified whether esophagitis present [K21.9] Start: 08-25-2023 ambulatory Vic Conner am, MD Work Phone: Pain Management Comment on above: Medication Start: 08-23-2023 Telephone encounter Deacon shahid MD Work Phone: General Surgery Comment on above: Refill Request Start: 08-21-2023 End: 08-21-2023 Emergency department patient visit AUTO DRIVER-Elroy Zamoraab Work Phone: [facility] Work Phone: Start: 08-18-2023 Telephone encounter Deacon shahid MD Work Phone: General Surgery Comment on above: Patient Question; Ca re Coordinator - Other Start: 08-14-2023 End: 08-14-2023 Emergency department patient visit AUTO DRIVER-Elroy Castillo Cristhian Work Phone: [facility] Work Phone: Start: 08-12-2023 Telephone encounter Radha Arzate Gastroenterology Comment on above: Education Of Patient /family; Reminder Call (08/26/23 appt confirmed) Start: 08-09-2023 End: 08-09-2023 ambulatory VIC RAMOS Facility:[facility] Start: 08-09-2023 End: 08-09-2023 Patient encounter procedure Vic Ramos MD Work Phone: Pain Management Comment on above: Neuralgia and neurit is (Primary Dx); Median arcuate ligament syndrome (HCC) Start: 08-07-2023 End: 08-08-2023 Evaluation and management of inpatient ANAMIE LAGOSAKARONALD Facility:[facility] Start: 08-05-2023 ambulatory Boogie Sandy Work Phone: Pain Management Comment on above: Ketamine nasal spray Medication Renewal Start: 08-04-2023 Telephone encounter Boogie Tompkins ud, MD Work Phone: Pain Management Comment on above: Medication Problem Start: 08-04-2023 End: 08-06-2023 Evaluation and management of inpatient MARIA TERESA MURILLO Facility:[facility] Start: 08-04-2023 End: 08-04-2023 ambulatory Rajni Santiagolesia Facility:[facility] Start: 08-04-2023 End: 08-04-2023 Patient encounter procedure Boogie Murguia MD Work Phone: Pain Management Comment on above: Chronic abdominal pa in (Primary Dx); Gastroesophageal reflux disease without esophagitis; Neuralgia and neuritis; Median arcuate ligament syndrome (HCC); S/P gastric bypass Start: 07-31-2023 End: 07-31-2023 Emergency department patient visit 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 Jaquan Morrow Work Phone: [facility] Work Phone: Start: 07-30-2023 End: 07-31-2023 Emergency department patient visit THOMAS CALIX Facility:[facility] Start: 07-28-2023 End: 07-28-2023 ambulatory TINO MONAHAN Not Available Start: 07-19-2023 Orders Only Deacon sousa MD Work Phone: General Surgery Comment on above: Chronic nausea (Prim reji Dx); History of laparoscopic partial gastrectomy; History of sphincterotomy of sphincter of Oddi; Median arcuate ligament syndrome (HCC) Start: 07-17-2023 End: 07-20-2023 Evaluation and management of inpatient DEACON KAT Facility:[facility] Start: 07-17-2023 End: 07-17-2023 Evaluation and management of inpatient ZEYAD-Elroy Morrow Work Phone: [address] Surgical Work Phone: Start: 07-15-2023 End: 07-15-2023 ambulatory JAQUAN MORROW Facility:[facility] Start: 07-13-2023 Telephone encounter Natalie Jameson LPN Gastroenterology Comment on above: Appointment Start: 07-13-2023 ambulatory OLGA Granados ty:JENNIFER Edmondson Start: 07-09-2023 End: 07-09-2023 [facility] Pablo Lebron PSYD Work Phone: Neurology Comment on above: ARSALAN (generalized anx iety disorder) (Primary Dx); Panic disorder without agoraphobia; Moderate recurrent major depression (HCC) Start: 07-06-2023 End: 07-06-2023 Emergency department patient visit JAQUAN MORROW Facility:[facility] Start: 07-06-2023 End: 07-06-2023 ambulatory Francisco J Steve MD Work Phone: Urology Start: 07-06-2023 End: 07-06-2023 Patient encounter procedure Francisco J Steve MD Work Phone: Urology Comment on above: Urinary frequency (P rimary Dx); Urgency of urination Start: 06-29-2023 End: 07-05-2023 ambulatory DAVID VALADEZ [facility] Start: 06-29-2023 End: 06-29-2023 Subsequent hospital visit by physician Sheridan Mederos [facility] Start: 06-29-2023 End: 07-03-2023 Evaluation and management of inpatient David Valadez DO Work Phone: [facility] [address] [place] Comment on above: Epigastric pain (Loretta alla Dx); Median arcuate ligament syndrome (CMS-HCC); Nausea and vomiting, unspecified vomiting type; Other specified hyperalimentation; Generalized abdominal pain Start: 06-29-2023 End: 06-29-2023 ambulatory MARCOS MORENO Not Available Start: 06-22-2023 End: 06-22-2023 Office outpatient visit 10 minutes Sherry Magaña MD Work Phone: [facility] Comment on above: Median arcuate ligam ent syndrome (CMS-HCC) (Primary Dx) Start: 06-22-2023 End: 06-22-2023 ambulatory SHERRY MAGAÑA [facility] Start: 06-18-2023 End: 06-18-2023 Emergency department patient visit JAQUAN MORROW Facility:[facility] Start: 06-18-2023 End: 06-18-2023 ambulatory BREANNA STERN Facility:[facility] Start: 06-18-2023 End: 06-18-2023 Patient encounter procedure Breanna Stern INVENTORY ADMINISTRATORRenettaREAL ESTATE AGENT Work Phone: General Surgery Comment on above: Sudden onset of sharon re abdominal pain (Primary Dx); Nausea and vomiting, unspecified vomiting type; PEG (percutaneous endoscopic gastrostomy) status (HCC) Start: 06-17-2023 Telephone encounter Mayladi Ramey INVENTORY ADMINISTRATORRenettaREAL ESTATE AGENT Work Phone: Pain Management Comment on above: Appointment Start: 06-17-2023 End: 06-30-2023 ambulatory Jaquan L Cristhian Facility:CD:[id number] Start: 06-15-2023 Telephone encounter Deacon shahid MD Work Phone: General Surgery Comment on above: Patient Update; Umm ent Question Start: 06-14-2023 Telephone encounter Stephanie Rojas huan Wilcoxaida DO Work Phone: [facility] Adult Start: 06-14-2023 End: 06-14-2023 ambulatory Jaquan L Cristhian Facility:[facility] Afsaneh cárdenase Start: 06-10-2023 End: 06-15-2023 ambulatory Jaquan L Cristhian Facility:CD:[id number] Start: 06-09-2023 End: 06-09-2023 [facility] Pablo Lebron PSYD Work Phone: Neurology Comment on above: ARSALAN (generalized anx iety disorder) (Primary Dx); Panic disorder without agoraphobia; Moderate recurrent major depression (HCC) Start: 06-06-2023 End: 06-09-2023 Evaluation and management of inpatient CRISELDA NO Facility:[facility] Start: 06-03-2023 End: 06-03-2023 ambulatory JAQUAN SHANNON CRISTHIAN Facility:[facility] Start: 06-02-2023 End: 06-02-2023 ambulatory Jaquan L Cristhian Facility:[facility] Afsaneh suarez Start: 06-01-2023 End: 06-01-2023 ambulatory Vic Ramos MD Work Phone: Pain Management Comment on above: Neuralgia and neurit is (Primary Dx); Gastroesophageal reflux disease without esophagitis; Median arcuate ligament syndrome (HCC); S/P gastric bypass Start: 06-01-2023 End: 06-01-2023 Telemedicine consultation with patient Vic Ramos MD Work Phone: [facility] Start: 05-31-2023 End: 06-09-2023 ambulatory Jaquan L Cristhian Facility:CD:[id number] Start: 05-30-2023 End: 05-31-2023 Emergency department patient visit 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 Jaquan Morrow Work Phone: [facility] Work Phone: Start: 05-30-2023 Telephone encounter Deacon shahid MD Work Phone: General Surgery Start: 05-28-2023 End: 05-28-2023 Refill Kasie Avalos MD Work Phone: Gastroenterology Comment on above: Refill Request Medication Problem Start: 05-25-2023 End: 05-28-2023 Evaluation and management of inpatient DEACON KAT Facility:[facility] Start: 05-24-2023 Telephone encounter Deacon shahid MD Work Phone: General Surgery Comment on above: Patient Education; C are Coordinator - Other Start: 05-24-2023 End: 05-26-2023 ambulatory Mateusz Garcia Facility:[id number] Start: 05-20-2023 End: 05-20-2023 Emergency department patient visit TIFFANIE KEITH Facility:[facility] Start: 05-19-2023 End: 05-19-2023 ambulatory Jaquan L Cristhian Facility:[facility] Afsaneh suarez Start: 05-18-2023 Telephone encounter Deacon shahid MD Work Phone: General Surgery Comment on above: Received Outside Med ical Records Start: 05-18-2023 End: 05-22-2023 Evaluation and management of inpatient JAQUAN L CRISTHIAN Facility:[facility] Start: 05-17-2023 End: 05-17-2023 ambulatory Deacon Kat MD Work Phone: General Surgery Comment on above: Nausea and vomiting, unspecified vomiting type (Primary Dx) Start: 05-17-2023 End: 05-17-2023 Telemedicine consultation with patient Deacon Kat MD Work Phone: [facility] Start: 05-17-2023 End: 05-17-2023 Emergency department patient visit Ashutosh Albright [facility] Start: 05-17-2023 End: 05-19-2023 ambulatory Jaquan L Cristhian Facility:CD:[id number] Start: 05-12-2023 End: 05-14-2023 ambulatory Moncho Trejo Facility[facility] Start: 05-12-2023 End: 05-14-2023 Observation Moncho Trejo [facility] Start: 05-11-2023 End: 05-11-2023 Emergency department patient visit Mateusz Garcia [facility] Start: 05-10-2023 Telephone encounter Deacon shahid MD Work Phone: General Surgery Comment on above: Patient Question Start: 05-10-2023 End: 05-10-2023 ambulatory Jaquan L Cristhian [facility]: [facility] Start: 05-09-2023 End: 05-09-2023 Emergency department patient visit Mateusz Garcia [facility] Start: 05-07-2023 Telephone encounter Santa Hart RN Ambulatory Surgery Comment on above: Appointment (Cancel EGD) Start: 05-06-2023 End: 05-06-2023 Emergency department patient visit Mateusz Garcia [facility] Start: 04-30-2023 End: 04-30-2023 ambulatory Jaquan L Cristhian Facility: [facility] Start: 04-28-2023 End: 04-28-2023 ambulatory JAQUAN SHANNON CRISTHIAN Facility:[facility] Start: 04-28-2023 End: 04-28-2023 Patient encounter procedure Kasie Avalos MD Work Phone: Gastroenterology Comment on above: Gastroesophageal ref lux disease, unspecified whether esophagitis present (Primary Dx); Constipation, unspecified constipation type Start: 04-20-2023 End: 04-20-2023 Office outpatient visit 10 minutes Sherry Magaña MD Work Phone: [facility] Comment on above: Median arcuate ligam ent syndrome (CMS/HCC) (Primary Dx) Start: 04-20-2023 End: 04-20-2023 ambulatory [facility] Start: 04-07-2023 End: 04-07-2023 Postop follow up visit related to original px Sherry Magaña MD Work Phone: [facility] Comment on above: Median arcuate ligam ent syndrome (CMS/HCC) (Primary Dx) Start: 04-07-2023 End: 04-07-2023 ambulatory [facility] Start: 04-07-2023 End: 04-07-2023 Admission to same day surgery center Deacon Kat MD Work Phone: Endocrinology BMI Comment on above: Bariatric surgery st atus (Primary Dx); Dietary zinc deficiency; Vitamin D deficiency Start: 04-07-2023 End: 04-07-2023 ambulatory JAQUAN MORROW Facility:[facility] Start: 04-07-2023 End: 04-07-2023 Telemedicine consultation with patient Deacon Kat MD Work Phone: [facility] Start: 04-06-2023 End: 04-06-2023 Emergency department patient visit 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 Jaquan Morrow Work Phone: [facility] Work Phone: Start: 04-02-2023 End: 04-02-2023 Emergency department patient visit Ashutosh Albright [facility] Start: 03-24-2023 End: 03-24-2023 ambulatory Jaquan Johnson Cristhian Facility:[facility] Afsaneh suarez Start: 03-16-2023 End: 03-20-2023 Evaluation and management of inpatient Melisa Barker MD Work Phone: [facility] [address] [facility] Comment on above: Abdominal pain (Prim reji Dx); Nausea and vomiting, unspecified vomiting type; History of gastric bypass; Median arcuate ligament syndrome (CMS/HCC) Start: 03-16-2023 End: 03-16-2023 Emergency department patient visit Earnest Jett [facility] Start: 03-15-2023 End: 03-15-2023 Emergency department patient visit Earnest Jett [facility] Start: 03-05-2023 End: 03-10-2023 Evaluation and management of inpatient Sherry Magaña MD Work Phone: [address] Comment on above: Median arcuate ligam ent syndrome (CMS/HCC) (Primary Dx) Start: 03-02-2023 End: 03-03-2023 ambulatory NO ASSIGNED PCP GENERIC PROVIDER [facility] Start: 03-02-2023 End: 03-02-2023 ambulatory NO ASSIGNED PCP GENERIC PROVIDER [facility] Start: 03-02-2023 End: 03-02-2023 Encounter for other preprocedural examination NO ASSIGNED PCP GENERIC PROVIDER [facility] Start: 02-13-2023 End: 02-13-2023 Emergency department patient visit 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 Jaquan Morrow Work Phone: [facility] Work Phone: Start: 02-12-2023 End: 02-12-2023 Emergency department patient visit NO ASSIGNED PCP GENERIC PROVIDER [facility] Start: 02-10-2023 End: 02-10-2023 ambulatory JAQUAN L CRISTHIAN Facility:[facility] Start: 02-03-2023 End: 02-03-2023 ambulatory Jaquan L Cristhian Facility:[facility] Start: 01-15-2023 Telephone encounter Deacon shahid MD Work Phone: Endocrinology BMI Comment on above: Patient Question; Pa tient Update Start: 01-14-2023 End: 01-14-2023 ambulatory Vic Ramos MD Work Phone: Pain Management Comment on above: Waitlist Start: 01-13-2023 End: 01-13-2023 Emergency department patient visit NO ASSIGNED PCP GENERIC PROVIDER [facility] Start: 01-11-2023 Orders Only Vic Conner [...] with patient Vic Ramos MD Work Phone: [facility] Start: 01-06-2023 Telephone encounter Vic saldana MD Work Phone: Pain Management Comment on above: Appointment Start: 12-31-2022 End: 12-31-2022 Emergency department patient visit Mateusz Garcia [facility] Start: 12-29-2022 End: 12-29-2022 ambulatory Jaquan L [facility] Facility:[facility] Start: 12-28-2022 Telephone encounter Deacon shahid MD Work Phone: General Surgery Comment on above: Patient Update; Orde rs Start: 12-21-2022 End: 12-21-2022 ambulatory WOOSUP M GÓMEZ [facility] Start: 12-14-2022 End: 12-14-2022 ambulatory Deacon Kat MD Work Phone: Endocrinology BMI Comment on above: Worsening Symptoms S evere Abdominal pain, unsp ecified abdominal location (Primary Dx) Start: 12-14-2022 End: 12-15-2022 Emergency department patient visit JAQUAN [facility] Start: 12-14-2022 End: 12-14-2022 Telemedicine consultation with patient Deacon Kat MD Work Phone: [facility] Start: 12-09-2022 ambulatory Jaquan L Cristhian Facility: [facility] [place] Start: 12-06-2022 End: 12-09-2022 Evaluation and management of inpatient JAQUAN SHANNON CRISTHIAN Facility:[facility] Start: 12-04-2022 End: 12-04-2022 Patient encounter procedure Agustin Zamorano MD Work Phone: General Surgery Comment on above: Generalized abdomina l pain (Primary Dx) Start: 12-04-2022 End: 12-04-2022 ambulatory JAQUAN SHANNON CRISTHIAN Facility:[facility] Start: 12-03-2022 Telephone encounter Oliva Dobbs RN General Surgery Start: 12-01-2022 Telephone encounter Deacon shahid MD Work Phone: Endocrinology BMI Comment on above: Patient Update Start: 12-01-2022 End: 12-01-2022 ambulatory Lokesh Maile Terry Facility:[facility] Start: 11-27-2022 End: 12-03-2022 Evaluation and management of inpatient CAMDEN Ahumada MICHAEL [facility] Start: 11-26-2022 ambulatory DEACON KAT Facilit y:[facility] Start: 11-26-2022 End: 11-26-2022 Subsequent hospital visit by physician Jing/ [facility] Work Phone: CARDIOVASCULAR TESTING Comment on above: Chronic nausea [R11. 0] Start: 11-26-2022 End: 11-26-2022 ambulatory JAQUAN L CRISTHIAN Facility:[facility] Start: 11-25-2022 Telephone encounter [facility] [place] Work Phone: Chronic Care Start: 11-25-2022 End: 11-25-2022 ambulatory Jaquan L Cristhian Facility[facility] [place] [facility] Start: 11-23-2022 Telephone encounter Deacon shahid MD Work Phone: Endocrinology BMI Comment on above: Patient Update Start: 11-22-2022 End: 11-23-2022 ambulatory RASHMI BARRON [facility] Start: 11-17-2022 End: 11-17-2022 ambulatory Deacon Kat MD Work Phone: Endocrinology BMI Comment on above: On-Call Surgeon - Se nt to ER Start: 11-16-2022 End: 11-17-2022 Refill Deacon Kat MD Work Phone: Endocrinology BMI Start: 11-16-2022 End: 11-16-2022 Lab Drop off Jaquan Morrow [facility] Start: 11-14-2022 ambulatory Deacon sousa MD Work Phone: [facility] Start: 11-14-2022 Nutrition therapy Deacon turner MD Work Phone: Endocrinology BMI Comment on above: IV Nutrition Start: 11-13-2022 End: 11-13-2022 ambulatory PABLO Sandy [facility] Facility:[facility] Start: 11-11-2022 End: 11-12-2022 ambulatory DEACON KAT Facility:[facility] Start: 11-10-2022 End: 11-10-2022 ambulatory JAQUAN MORROW Facility:[facility] Start: 11-09-2022 Telephone encounter Deacon shahid MD Work Phone: Endocrinology BMI Comment on above: Surgery Rescheduled Start: 11-06-2022 ambulatory Agustin Baum RT(R) [facility] Radiology Molecular Comment on above: Radiology [place] Start: 11-06-2022 Patient encounter procedure Agustin Sheets RT(R) [facility] Start: 11-06-2022 Telephone encounter Deacon shahid MD Work Phone: Endocrinology BMI Comment on above: Patient Update Start: 11-05-2022 End: 11-08-2022 ambulatory MARIA TERESA HADLEY [facility] Start: 11-04-2022 End: 11-04-2022 Patient encounter procedure Deacon Kat MD Work Phone: Endocrinology BMI Comment on above: Nausea (Primary Dx); RUQ pain; History of cholecystectomy Dehydration (Primary Dx); RUQ pain Right knee pain, uns pecified chronicity (Primary Dx) Start: 11-04-2022 End: 11-04-2022 ambulatory Rheu Chair 5 Jeanne Work Phone: Infusion Start: 11-04-2022 ambulatory DEACON KAT Facilit y:[facility] Start: 11-04-2022 End: 11-04-2022 Subsequent hospital visit by physician [facility] Work Phone: [facility] Radiology Ultrasound Comment on above: Nausea [R11.0] Start: 11-04-2022 End: 11-04-2022 ambulatory JAQUANPO ZAMORAAB Facility:[facility] Start: 11-03-2022 End: 11-03-2022 ambulatory Jaquan L Cristhian Facility:[facility] Start: 11-02-2022 Refill Haroon ahumada APRN.REAL ESTATE AGENT Work Phone: Neurology Start: 11-02-2022 End: 11-02-2022 Emergency department patient visit DIMITRI WALKER [facility] Start: 11-02-2022 End: 11-02-2022 Emergency department patient visit Dimitri Walker MD Work Phone: [facility] Start: 11-01-2022 ambulatory Deacon sousa MD Work Phone: Endocrinology BMI Comment on above: Worsening Symptoms Problem Start: 10-31-2022 Refill Breanna Stern APRN.REAL ESTATE AGENT Work Phone: General Surgery Comment on above: Refill Request Start: 10-31-2022 End: 10-31-2022 Emergency department patient visit WALLY FOLEY [facility] Start: 10-31-2022 End: 10-31-2022 Emergency department patient visit Jalyn Suresh DO Work Phone: [facility] ED Comment on above: Back strain, initial encounter (Primary Dx) Start: 10-29-2022 End: 11-30-2022 ambulatory Jaquan L Cristhian Facility::[id number] Start: 10-27-2022 End: 10-27-2022 ambulatory JACKSON ANDERSON [facility] Start: 10-26-2022 End: 10-26-2022 ambulatory Jaquan L [facility] Facility[facility] Start: 10-25-2022 End: 10-28-2022 ambulatory RAYNASHONA BILLINGSLEY [facility] Start: 10-24-2022 ambulatory Deacon sousa MD Work Phone: Endocrinology BMI Comment on above: Symptoms Start: 10-23-2022 End: 10-23-2022 Emergency department patient visit [facility] Start: 10-21-2022 End: 10-21-2022 ambulatory [facility] Facility:[facility] Start: 10-21-2022 End: 10-21-2022 Emergency department patient visit [facility] Facility:[facility] Start: 10-20-2022 Telephone encounter Deacon shahid MD Work Phone: General Surgery Comment on above: Patient Question; Na usea & Vomiting Start: 10-20-2022 End: 10-20-2022 Emergency department patient visit Earnest Jett [facility] Start: 10-19-2022 ambulatory Breanna Stern APRN.CNP Work Phone: General Surgery Comment on above: Worsening Symptoms Start: 10-19-2022 End: 10-19-2022 Emergency department patient visit Earnest Jett [facility] Start: 10-18-2022 Emergency department patient [facility] Facility:[facility] Start: 10-17-2022 End: 10-17-2022 Emergency department patient visit [facility] Start: 10-15-2022 Refill Kasie Avalos MD Work Phone: Gastroenterology Comment on above: Refill Request Start: 10-07-2022 End: 10-07-2022 ambulatory Jaquan Morrow Facility:[facility] Afsaneh suarez Start: 10-05-2022 End: 10-05-2022 Distance [facility] Pablo Lebron PSYD Work Phone: [...] Xiomara Martinez RD Work Phone: [facility] Start: 09-21-2022 End: 09-21-2022 Distance [facility] Pablo Lebron PSYD Work Phone: Neurology Comment on above: ARSALAN (generalized anx iety disorder) (Primary Dx); Panic disorder without agoraphobia; Moderate recurrent major depression (HCC) Start: 09-18-2022 End: 09-18-2022 Patient encounter procedure [...] Rajni Rouse [facility] Start: 07-28-2022 End: 07-28-2022 Patient [...] 07-20-2022 End: 07-20-2022 Lab Drop off Jaquan Alex Morrow [facility] Start: 06-18-2022 End: 06-18-2022 ambulatory Aliyah Washburn PA-C Work Phone: [facility] Comment on above: Encounter to discuss test results (Primary Dx); NO SHOW Start: 06-18-2022 End: 06-18-2022 Telemedicine consultation with patient Aliyah Washburn PA-C Work Phone: [facility] Start: 06-12-2022 End: 06-12-2022 Patient encounter procedure Aliyah Washburn PA-C Work Phone: [facility] Comment on above: Polyarthralgia (Prim reji Dx); Malaise and fatigue; Subjective fever; S/P laparoscopic sleeve gastrectomy; History of syncope; History of adrenal insufficiency; Hypothyroidism, unspecified type Start: 06-11-2022 End: 07-24-2022 Pre-admission assessment Rui C Anya [facility] Start: 06-10-2022 End: 06-10-2022 Emergency department patient visit Ashutosh Albright [facility] Start: 06-09-2022 End: 06-09-[address] DOCTOR CARRERA Facility:H1 Start: 05-22-2022 End: 05-23-[address] WALLY FOLEY . Facility:H1 Start: 03-30-2022 ambulatory Breanna Stern APRN.REAL ESTATE AGENT Work Phone: [facility] Start: 03-30-2022 Patient encounter procedure Breanna Stern APRN.REAL ESTATE AGENT Work Phone: General Surgery Comment on above: Cancel Appointment C annot Reach Anyone Start: 03-06-2022 End: 03-06-2022 Subsequent hospital visit by physician Deacon Kat MD Work Phone: [facility] Endoscopy - ENDO Comment on above: Esophageal dysphagia [R13.19] Start: 03-05-2022 Telephone encounter Li márquez RN Work Phone: Endocrinology BMI Comment on above: EGD Instructions Start: 03-05-2022 End: 03-05-2022 ambulatory Breanna Stern APRN.REAL ESTATE AGENT Work Phone: General Surgery Comment on above: Esophageal dysphagia (Primary Dx); S/P gastric bypass; Postoperative malabsorption Start: 03-05-2022 End: 03-05-2022 Telemedicine consultation with patient Breanna Stern APRN.REAL ESTATE AGENT Work Phone: [facility] Start: 03-02-2022 End: 03-03-[address] WALLY FOLEY . Facility:H1 Start: 02-17-2022 End: 02-18-[address] WALLY FOLEY . Facility:[facility]1 Start: 02-13-2022 End: 02-13-2022 Patient encounter procedure Kuldip Yousif MD Work Phone: [employer] [facility] Comment on above: Acetabular labrum te ar, right, subsequent encounter (Primary Dx) Start: 02-05-2022 Orders Only Deacon sousa MD Work Phone: Endocrinology BMI Comment on above: Postoperative pain Start: 02-04-2022 ambulatory Deacon sousa MD Work Phone: [facility] Start: 02-04-2022 Follow-up encounter Deacon shahid MD Work Phone: Endocrinology BMI Comment on above: Surgery Follow-Up Start: 02-04-2022 End: 02-04-2022 Admission to same day surgery center Nahed Tamez RD Work Phone: Nutrition Therapy Comment on above: S/P gastric surgery (Primary Dx); Dietary counseling Start: 02-04-2022 End: 02-04-2022 Telemedicine consultation with patient Nahed Acevedoleonel GARLAND Work Phone: [facility] Start: 02-03-2022 End: 02-03-2022 Patient encounter procedure Breanna Stern INVENTORY ADMINISTRATOR.REAL ESTATE AGENT Work Phone: General Surgery Comment on above: S/P bariatric surger y (Primary Dx); Postoperative pain; Primary osteoarthritis involving multiple joints Start: 02-02-2022 Telephone encounter Deacon shahid MD Work Phone: General Surgery Comment on above: Medication Question Start: 01-31-2022 ambulatory Deacon sousa MD Work Phone: Endocrinology BMI Comment on above: Home prescription qu estion Start: 01-28-2022 End: 01-28-2022 [facility] Work Phone: [facility] Start: 01-28-2022 End: 01-28-2022 ambulatory Pacc 2 Work Phone: Pre Anesthesia Comment on [...] p. GJ revision) Start: 01-02-2022 End: 01-02-2022 [facility] Sabina Joy APRN.REAL ESTATE AGENT Work Phone: General Surgery Comment on above: [...] 12-25-2021 Subsequent hospital visit by physician Britt Bradshaw MD Work Phone: Gastroenterology Comment on above: Gastroesophageal ref lux disease without esophagitis [K21.9] Start: 12-17-2021 Patient Update Deacon sousa MD Work Phone: Endocrinology BMI Comment on above: Orders (Corrected EG D & Huerta orders) Start: 11-19-2021 Patient Msg Li Kimball RN Work Phone: Endocrinology BMI Comment on above: Testing ordered by Jose Kat Start: 11-18-2021 Patient Update Breanna Merlin INVENTORY ADMINISTRATOR.REAL ESTATE AGENT Work Phone: Endocrinology BMI Comment on above: Orders (pH Impedence ) Start: 11-17-2021 End: 11-17-2021 Telemedicine consultation with patient Deacon Kat MD Work Phone: [facility] Start: 11-17-2021 End: 11-17-2021 ambulatory Deacon Kat MD Work Phone: Endocrinology BMI Comment on above: Gastroesophageal ref lux disease without esophagitis (Primary Dx) Refill Request; Refi ll Request Start: 10-27-2021 End: 10-28-[address] WALLY FOLEY . Facility:[facility]1 Start: 10-21-2021 Telephone encounter Kuldip mckeon MD Work Phone: [facility] Comment on above: Appointment Start: 10-09-2021 End: 10-09-2021 [facility] Sabina Joy INVENTORY ADMINISTRATOR.REAL ESTATE AGENT Work Phone: General Surgery Comment on above: Gastroesophageal ref lux disease, unspecified whether esophagitis present (Primary Dx); Bariatric surgery status; Weight disorder; Class 1 obesity with serious comorbidity and body mass index (BMI) of 31.0 to 31.9 in adult, unspecified obesity type; S/P laparoscopic sleeve gastrectomy; Dietary counseling and surveillance Start: 10-08-2021 ambulatory Kuldip Yousif MD Work Phone: [facility] Start: 10-08-2021 Patient encounter procedure Kuldip Yousif MD Work Phone: [employer] Comment on above: Appointment Time Tojose dejesus Start: 10-04-2021 End: 10-05-[address] WALLY FOLEY . Facility:H1 Start: 08-30-2021 End: 08-30-2021 Emergency department patient visit Pablo Atwood DO Work Phone: [facility] ED Comment on above: Dental infection (Pr imary Dx) Start: 08-29-2021 End: 08-29-2021 ambulatory Justine Johnsonelroy PA-C Work Phone: [facility] Comment on above: Tear of right acetab ular labrum, subsequent encounter (Primary Dx) Start: 08-29-2021 End: 08-29-2021 Telemedicine consultation with patient Justine Johnsonelroy PA-C Work Phone: [facility] [address] Start: 08-28-2021 Refill Justine Serranomandy ac PA-C Work Phone: [facility] Comment on above: Refill Request Start: 08-28-2021 End: 08-28-2021 ambulatory Xiomara Martinez DADA Work Phone: General Surgery Comment on above: S/P laparoscopic sle dee dee gastrectomy (Primary Dx); Obesity, Class I, BMI 30-34.9; Dietary counseling and surveillance Start: 08-28-2021 End: 08-28-2021 Telemedicine consultation with patient Xiomara Martinez RD Work Phone: [facility] Start: 08-25-2021 Encounter for genera l adult medical examination without abnormal findings SHANNA JUNE [facility] Start: 08-24-2021 ambulatory Deacon sousa MD Work Phone: Endocrinology BMI Comment on above: Possible Revision Di scussion Start: 08-22-2021 End: 08-22-2021 Refill Kaise Avalos MD Work Phone: Gastroenterology Comment on above: Refill Request Start: 08-22-2021 Telephone encounter Shanna hooks [facility] Start: 08-21-2021 End: 08-22-2021 Encounter for general adult medical examination without abnormal findings DR WALLY FLOEY . Facility:[facility]1 Start: 08-21-2021 End: 08-22-[address] WALLY FOLEY . Facility:[facility]1 Start: 08-19-2021 End: 08-20-[address] WALLY FOLEY . Facility:[facility]1 Start: 08-17-2021 End: 08-17-2021 ambulatory Shanna June Other [employer] Other Start: 08-17-2021 Office outpatient vi sit 15 minutes Shanna Granadosault [facility] Start: 08-14-2021 Refill Justine L Nicki ac PA-C Work Phone: [facility] Comment on above: Refill Request Start: 08-01-2021 End: 08-01-2021 ambulatory Justinerodolfo Johnsonc PA-C Work Phone: [facility] Comment on above: Tear of right acetab ular labrum, subsequent encounter (Primary Dx) Start: 08-01-2021 End: 08-01-2021 Telemedicine consultation with patient Justine Johnson Elizabethc PA-C Work Phone: [facility] [address] Start: 07-30-2021 End: 07-30-[address] MARCOS MORENO . Facility:H1 Start: 07-28-2021 ambulatory Justine Caceres ac PA-C Work Phone: [facility] [address] Start: 07-28-2021 Patient encounter procedure Justinerodolfo Johnsonc PA-C Work Phone: [facility] Comment on above: Virtual Appointment Start: 07-27-2021 End: 07-27-2021 Emergency department patient visit Angela Do MD Work Phone: [facility] ED Comment on above: Generalized abdomina l pain (Primary Dx) Start: 07-14-2021 ambulatory Justine Caceres ac PA-C Work Phone: [facility] Comment on above: Medication Start: 07-11-2021 End: 08-26-[address] DOCTOR CARRERA Facility:H1 Start: 07-04-2021 End: 07-04-2021 ambulatory Justine Johnsonc PA-C Work Phone: [facility] Comment on above: Tear of right acetab ular labrum, subsequent encounter (Primary Dx) Start: 07-04-2021 End: 07-04-2021 Telemedicine consultation with patient Justine L Mele QUIROZ Work Phone: [facility] [address] Start: 06-23-2021 Admission to [facility] Jacenicki Duarte AT Work Phone: [facility] Comment on above: Schedule Surgery Start: 06-23-2021 ambulatory Jacenicki Lara ck AT Work Phone: [facility] [address] Start: 06-18-2021 End: 06-18-2021 Patient encounter procedure Kuldip Yousif MD Work Phone: [facility] Comment on above: Acetabular labrum te ar, right, initial encounter (Primary Dx) Start: 06-02-2021 ambulatory LUCIE MORA Faci lity:[facility] Start: 06-02-2021 End: 06-02-2021 Office outpatient visit 15 minutes Lucie Mora MD Work Phone: [facility] Comment on above: 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) Start: 04-02-2021 End: 04-02-2021 ambulatory Shanna June Other [employer] Other Start: 04-02-2021 Telephone encounter Shanna hooks [facility] Start: 03-31-2021 End: 03-31-2021 ambulatory Shanna June Other [employer] Other Start: 03-31-2021 Office outpatient vi sit 15 minutes Shanna June [facility] Start: 03-10-2021 End: 03-10-2021 ambulatory Shanna June Other [employer] Other Start: 03-10-2021 Telephone encounter Shanna hooks [facility] Start: 01-28-2021 End: 01-28-2021 ambulatory Shanna June Other [employer] Other Start: 01-28-2021 Office outpatient vi sit 15 minutes Shanna June [facility] Start: 12-17-2020 End: 12-17-2020 ambulatory Shanna June Other [employer] Other Start: 12-17-2020 Encounter for genera l adult medical examination without abnormal findings Shanna June [facility] Start: 12-17-2020 Periodic preventive med est patient 18-39 yrs Shanna June [facility] Start: 12-14-2020 End: 12-14-2020 Emergency department patient visit Shanna June INVENTORY ADMINISTRATOR - AUTO DRIVER Work Phone: [facility] ED Comment on above: Contusion of right t humb without damage to nail, initial encounter (Primary Dx) Start: 12-09-2020 ambulatory LUICE Foster lity:[facility] Start: 07-02-2020 End: 07-02-2020 Emergency department patient visit Vaughn Ceja MD Work Phone: [facility] Start: 01-30-2020 End: 01-30-2020 Emergency department patient visit Agustin H Sj Work Phone: [facility] Start: 09-25-2019 End: 08-04-2023 Preprocedural examination done Kuldip Yousif MD Work Phone: [facility] Work Phone: Start: 09-10-2017 End: 09-11-2017 Patient encounter DEFAULT PHYSICIAN Facility:[facility] Procedures Date Procedure Procedure Detail Performing Clinician Start: 08-26-2023 Esophagoscp rig transoral hypopharynx crv rene Avalos MD Work Phone: Start: 08-21-2023 Computed tomography of abdomen and pelvis with contrast PAO Morrow Work Phone: Start: 08-14-2023 Computed tomography of abdomen and pelvis with contrast 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 Jaquan Cristhian Work Phone: Start: 07-31-2023 Computed tomography of abdomen and pelvis with contrast 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 Jaquan Zamoraab Work Phone: Start: 07-16-2023 Computed tomography of abdomen and pelvis with contrast 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 Jaquan Cristhian Work Phone: Start: 07-15-2023 Follow-up visit Follow Up RYLEE THACKER Start: 07-06-2023 Urnls dip stick/tablet rgnt auto w/o microscopy Bulk Order Provider Start: 07-03-2023 LONG CATHETER REMOVAL WOOSBAHMAN MAGAÑA Start: 07-03-2023 DISCHARGE PATIENT WOOSBAHMAN MAGAÑA Start: 07-03-2023 Glucose [Mass/volume] in Serum or Plasma [employer] G[facility]MEZ Start: 07-03-2023 Glucose quantitative blood xcpt reagent strip Kina Ann MD Work Phone: Start: 07-02-2023 Glucose [Mass/volume] in Serum or Plasma [employer] [facility] Start: 07-02-2023 Glucose quantitative blood xcpt reagent strip Kina Ann MD Work Phone: Start: 07-02-2023 Glucose [Mass/volume] in Serum or Plasma [employer] [facility] Start: 07-02-2023 DIET TUBE FEEDING WITH TRAY WOMERARY MAGAÑA Start: 07-02-2023 Glucose quantitative blood xcpt reagent strip Kina Ann MD Work Phone: Start: 07-02-2023 Glucose [Mass/volume] in Serum or Plasma [employer] [facility] Start: 07-02-2023 Glucose quantitative blood xcpt reagent strip Kina Ann MD Work Phone: Start: 07-02-2023 DO NOT REMOVE URINARY CATHETER WITHOUT PROVIDER ORDER [facility] Start: 07-02-2023 Glucose [Mass/volume] in Serum or Plasma [employer] [facility] Start: 07-02-2023 CBC panel - Blood by Automated count [employer] [facility] Start: 07-02-2023 RENAL FUNCTION PANEL [facility] Start: 07-02-2023 Glucose quantitative blood xcpt reagent strip Dolores Cox MD Work Phone: Start: 07-02-2023 Renal function panel Dolores Cox MD Work Phone: Start: 07-02-2023 Glucose [Mass/volume] in Serum or Plasma [facility] Start: 07-01-2023 Glucose quantitative blood xcpt reagent strip Dolores Cox MD Work Phone: Start: 07-01-2023 Glucose [Mass/volume] in Serum or Plasma [facility] Start: 07-01-2023 Glucose quantitative blood xcpt reagent strip Dolores Cox MD Work Phone: Start: 07-01-2023 Glucose [Mass/volume] in Serum or Plasma [facility] Start: 07-01-2023 Glucose quantitative blood xcpt reagent strip Dolores Cox MD Work Phone: Start: 07-01-2023 XR CHEST 1 VIEW [facility] G[facility] Start: 07-01-2023 Glucose [Mass/volume] in Serum or Plasma [facility] Start: 07-01-2023 Glucose [Mass/volume] in Serum or Plasma [facility] Start: 07-01-2023 Radiologic exam chest single view Yajairam aamir Cox MD Work Phone: Start: 07-01-2023 Glucose quantitative blood xcpt reagent strip Dolores Cox MD Work Phone: Start: 07-01-2023 Glucose quantitative blood xcpt reagent strip Dolores Cox MD Work Phone: Start: 07-01-2023 Glucose [Mass/volume] in Serum or Plasma [facility] Start: 07-01-2023 Glucose quantitative blood xcpt reagent strip Dolores Cox MD Work Phone: Start: 07-01-2023 CBC panel - Blood by Automated count [facility] Start: 07-01-2023 Magnesium [Mass/volume] in Serum or Plasma [facility] Start: 07-01-2023 RENAL FUNCTION PANEL [facility] Start: 07-01-2023 Renal function panel Dolores Cox MD Work Phone: Start: 07-01-2023 BATH/SHOWER WITH CHLORHEXIDINE GLUCONATE [facility] Start: 06-30-2023 Glucose [Mass/volume] in Serum or Plasma [facility] Start: 06-30-2023 Glucose quantitative blood xcpt reagent strip Dolores Cox MD Work Phone: Start: 06-30-2023 MAY PARTICIPATE IN ROOM SERVICE [facility] Leonel BRAY Start: 06-30-2023 IP CONSULT TO SPIRITUAL CARE [facility] Start: 06-30-2023 IP CONSULT TO NUTRITION SERVICES [facility] Start: 06-30-2023 IP CONSULT TO SOCIAL WORK [facility] Start: 06-30-2023 IP CONSULT TO RESPIRATORY CARE [facility] HENNY CASTILLO Start: 06-30-2023 NOTIFY PROVIDER (DO NOT PROMPT FOR PARAMETERS) [facility] Start: 06-30-2023 NURSING COMMUNICATION [facility] Start: 06-30-2023 PULSE OXIMETRY, CONTINUOUS [facility] Start: 06-30-2023 ECG 12-LEAD [facility] Start: 06-30-2023 STAPHYLOCOCCUS AUREUS/MRSA COLONIZATION, CULTURE [facility] Start: 06-30-2023 Glucose [Mass/volume] in Serum or Plasma [facility] Start: 06-30-2023 CT ANGIO ABDOMEN PELVIS W AND/OR WO IV IV CONTRAST [facility] Start: 06-30-2023 VASC US MESENTERIC ARTERY DUPLEX COMPLETE [facility] Start: 06-30-2023 Glucose quantitative blood xcpt reagent strip Baldomero Woodard MD Work Phone: Start: 06-30-2023 Ct angio abd&plvis cntrst mtrl w/wo cntrst img Tiffanie Mendez INVENTORY ADMINISTRATOR-REAL ESTATE AGENT Work Phone: Start: 06-30-2023 Dup-scan artl tiara abdl/pel/scrot&/rpr orgn com Jamil Gavin MD Work Phone: Start: 06-30-2023 CBC panel - Blood by Automated count [facility] Start: 06-30-2023 Comprehensive metabolic 2000 panel - Serum or Plasma [facility] Start: 06-30-2023 Magnesium [Mass/volume] in Serum or Plasma [facility] Start: 06-30-2023 Phosphate [Mass/volume] in Serum or Plasma [facility] Start: 06-30-2023 Comprehensive metabolic panel Baldomero serrano MD Work Phone: Start: 06-30-2023 IP CONSULT TO VASCULAR SURGERY [facility] HENNY CASTILLO Start: 06-30-2023 CENTRAL VENOUS LINE CAP CHANGE - ADULTS [facility] Start: 06-30-2023 CENTRAL VENOUS LINE DRESSING CHANGE - ADULT [facility] Start: 06-30-2023 CENTRAL VENOUS LINE TUBING CHANGE - ADULTS [facility] Start: 06-30-2023 IP CONSULT TO ACUTE CARE SURGERY [facility] Start: 06-30-2023 GASTRIC TUBE CARE [facility] Start: 06-30-2023 NOTIFY PROVIDER (PROMPT FOR PARAMETERS) [facility] Start: 06-30-2023 NURSING COMMUNICATION [facility] Start: 06-30-2023 NURSING COMMUNICATION - DO NOT USE IN ORDER SETS [facility] Start: 06-30-2023 POCT GLUCOSE METER [facility] Start: 06-30-2023 EXTRA URINE ORLANDO TUBE [facility] Start: 06-30-2023 HCG, URINE, QUALITATIVE [facility] Start: 06-30-2023 URINALYSIS WITH REFLEX CULTURE AND MICROSCOPIC [facility] Start: 06-30-2023 ADMIT TO INPATIENT [facility] Start: 06-30-2023 ED TO FLOOR BED REQUEST [facility] Start: 06-30-2023 EXTRA URINE ORLADNO TUBE Davdi Dykes Rory DO Work Phone: Start: 06-30-2023 Urinalysis complete W Reflex Culture panel - Urine David Dykes Rory DO Work Phone: Start: 06-30-2023 Urnls dip stick/tablet rgnt auto w/o microscopy David Valadez DO Work Phone: Start: 06-30-2023 CT ABDOMEN PELVIS WO IV CONTRAST [facility] Start: 06-29-2023 Ct abdomen & pelvis w/o contrast material David Valadez DO Work Phone: Start: 06-29-2023 Basic metabolic 2000 panel - Serum or Plasma [facility] Start: 06-29-2023 CBC panel - Blood by Automated count [facility] Start: 06-29-2023 Glucose [Mass/volume] in Serum or Plasma [facility] Start: 06-29-2023 CBC W Auto Differential panel - Blood [facility] Start: 06-29-2023 Comprehensive metabolic 2000 panel - Serum or Plasma [facility] Start: 06-29-2023 Comprehensive metabolic panel David rowland DO Work Phone: Start: 06-29-2023 Ecg routine ecg w/least 12 lds trcg only w/o i&r David Valadez DO Work Phone: Start: 06-29-2023 End: 06-29-2023 Comprehensive metabolic panel David rowland DO Work Phone: Start: 06-18-2023 Electrocardiogram JAQUAN CRISTHIAN Start: 05-30-2023 Computed tomography of abdomen and pelvis with contrast 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 Jaquan Cristhian Work Phone: Start: 05-30-2023 Urine culture 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 Jaquan Cristhian Work Phone: Start: 05-25-2023 Esophagoscp rig transoral hypopharynx crv esoph Rajni Lue Start: 05-20-2023 Esophagoscp rig transoral hypopharynx crv esoph Rajni Lue Start: 05-12-2023 Esophagogastroduodenoscopy Moncho ahumada Start: 04-06-2023 Computed tomography of abdomen and pelvis with contrast 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 Jaquan Cristhian Work Phone: Start: 03-20-2023 DISCHARGE PATIENT [facility] Start: 03-19-2023 DISCHARGE PATIENT [facility] [employer] Start: 03-19-2023 Esophagogastroduodenoscopy [facility] Start: 03-19-2023 SURGICAL PATHOLOGY EXAM [facility] Start: 03-19-2023 Egd transoral biopsy single/multiple Deepika Roy INVENTORY ADMINISTRATOR-REAL ESTATE AGENT Work Phone: Start: 03-19-2023 CBC panel - Blood by Automated count [facility] Start: 03-19-2023 Comprehensive metabolic 2000 panel - Serum or Plasma [facility] Start: 03-19-2023 Comprehensive metabolic panel Tiffanie Cruz all INVENTORY ADMINISTRATOR-REAL ESTATE AGENT Work Phone: Start: 03-18-2023 CBC panel - Blood by Automated count [facility] Start: 03-18-2023 Comprehensive metabolic 2000 panel - Serum or Plasma [facility] Start: 03-18-2023 Comprehensive metabolic panel Tiffanie Cruz all INVENTORY ADMINISTRATOR-REAL ESTATE AGENT Work Phone: Start: 03-17-2023 XR CHEST 1 VIEW [facility] Start: 03-17-2023 Radiologic exam chest single view Tiffanie Mendez INVENTORY ADMINISTRATOR-REAL ESTATE AGENT Work Phone: Start: 03-17-2023 FL UPPER GI W DOUBLE CONTRAST W SMALL BOWEL FOLLOW THROUGH [facility] Start: 03-17-2023 Radiologic exam upr gi trc double contrast study Tiffanie Mendez INVENTORY ADMINISTRATOR-REAL ESTATE AGENT Work Phone: Start: 03-17-2023 XR CHEST 1 VIEW [facility] Start: 03-17-2023 Radiologic exam chest single view Tiffanie Mendez INVENTORY ADMINISTRATOR-REAL ESTATE AGENT Work Phone: Start: 03-17-2023 CBC panel - Blood by Automated count [facility] Start: 03-17-2023 Comprehensive metabolic 2000 panel - Serum or Plasma [facility] Start: 03-17-2023 ECG 12-LEAD [place] Start: 03-17-2023 Comprehensive metabolic panel Tiffanie Cruz all INVENTORY ADMINISTRATOR-REAL ESTATE AGENT Work Phone: Start: 03-16-2023 CT ABDOMEN PELVIS W IV CONTRAST [facility] Start: 03-16-2023 Ct abdomen & pelvis w/contrast material Tiffanie Mendez INVENTORY ADMINISTRATOR-REAL ESTATE AGENT Work Phone: Start: 03-16-2023 ED TO FLOOR BED REQUEST [facility] Start: 03-16-2023 PULSE OXIMETRY, CONTINUOUS [facility] Start: 03-16-2023 TELEMETRY MONITORING [facility] Start: 03-16-2023 MEASURE HEIGHT [facility] Start: 03-16-2023 ORTHOSTATIC BLOOD PRESSURE [facility] Start: 03-16-2023 WEIGH PATIENT [facility] Start: 03-16-2023 ADMIT TO INPATIENT [facility] Start: 03-16-2023 CBC W Auto Differential panel - Blood [facility] Start: 03-16-2023 Comprehensive metabolic 2000 panel - Serum or Plasma [facility] Start: 03-16-2023 SARS-COV-2 AND INFLUENZA A/B PCR [facility] Start: 03-16-2023 PULSE OXIMETRY, CONTINUOUS Tiffanie Mendez INVENTORY ADMINISTRATOR-REAL ESTATE AGENT Work Phone: Start: 03-16-2023 Comprehensive metabolic panel Melisa lipscomb MD Work Phone: Start: 03-16-2023 Influenza virus A and B and SARS-CoV-2 (COVID-19) identified in Respiratory specimen by HANK with probe detection Melisa Barker MD Work Phone: Start: 03-10-2023 DISCHARGE PATIENT [facility] Start: 03-10-2023 DISCHARGE INSTRUCTIONS [facility] Start: 03-10-2023 Glucose [Mass/volume] in Serum or Plasma [facility] Start: 03-10-2023 Glucose quantitative blood xcpt reagent strip Dolores Cox MD Work Phone: Start: 03-10-2023 Glucose [Mass/volume] in Serum or Plasma [facility] Start: 03-10-2023 Glucose quantitative blood xcpt reagent strip Dolores Cox MD Work Phone: Start: 03-10-2023 Basic metabolic 2000 panel - Serum or Plasma [facility] Start: 03-10-2023 CBC panel - Blood by Automated count [facility] Start: 03-10-2023 Glucose [Mass/volume] in Serum or Plasma [facility] Start: 03-10-2023 End: 03-10-2023 Basic metabolic panel calcium total Alicia Jose Toro [facility] Work Phone: Start: 03-10-2023 PO[facility] Start: 03-10-2023 Glucose [Mass/volume] in Serum or Plasma [facility] Start: 03-10-2023 Glucose quantitative blood xcpt reagent strip Dolores Cox MD Work Phone: Start: 03-09-2023 Glucose [Mass/volume] in Serum or Plasma [facility] Start: 03-09-2023 Glucose quantitative blood xcpt reagent strip Dolores Cox MD Work Phone: Start: 03-09-2023 Glucose [Mass/volume] in Serum or Plasma [facility] Start: 03-09-2023 Glucose quantitative blood xcpt reagent strip Dolores Cox MD Work Phone: Start: 03-09-2023 C. DIFFICILE, PCR [facility] Start: 03-09-2023 STOOL PATHOGEN PANEL, PCR [facility] Start: 03-09-2023 Glucose [Mass/volume] in Serum or Plasma [facility] Start: 03-09-2023 Iadna-dna/rna gi pthgn multiplex probe tq 6-11 Alicia Jose Cortez [facility] Work Phone: Start: 03-09-2023 Inf agent det nucleic acid clostridium amp probe Alicia Jose Toro [facility] Work Phone: Start: 03-09-2023 IP CONSULT TO NUTRITION SERVICES [facility] Start: 03-09-2023 Glucose quantitative blood xcpt reagent strip Dolores Cox MD Work Phone: Start: 03-09-2023 Glucose [Mass/volume] in Serum or Plasma [facility] Start: 03-09-2023 ECG 12-LEAD [facility] Start: 03-09-2023 Basic metabolic 2000 panel - Serum or Plasma [facility] Start: 03-09-2023 CBC panel - Blood by Automated count [facility] Start: 03-09-2023 Glucose quantitative blood xcpt reagent strip Dolores Cox MD Work Phone: Start: 03-09-2023 Glucose [Mass/volume] in Serum or Plasma [facility] Start: 03-09-2023 Basic metabolic panel calcium total Alicia Toro INVENTORY ADMINISTRATOR-REAL ESTATE AGENT Work Phone: Start: 03-09-2023 Glucose [Mass/volume] in Serum or Plasma [facility] Start: 03-09-2023 Glucose quantitative blood xcpt reagent strip Dolores Cox MD Work Phone: Start: 03-09-2023 Glucose quantitative blood xcpt reagent strip Dolores Cox MD Work Phone: Start: 03-09-2023 POCT GLUCOSE METER SHERRY GÓMEZ Start: 03-09-2023 Glucose [Mass/volume] in Serum or [...] 2000 panel - Serum or Plasma [facility] Start: 03-08-2023 CBC panel - Blood by Automated count [facility] Start: 03-08-2023 Glucose [Mass/volume] in Serum or Plasma [facility] Start: 03-08-2023 End: 03-08-2023 Basic metabolic panel calcium total Chrissy Harris PA-C Work Phone: Start: 03-08-2023 INSERT URETHRAL CATHETER [facility] Start: 03-08-2023 POCT GLUCOSE METER [facility] Start: 03-08-2023 Glucose [Mass/volume] in Serum or Plasma [facility] Start: 03-08-2023 Glucose quantitative blood xcpt reagent strip Karma Sharpe MD Work Phone: Start: 03-07-2023 Glucose [Mass/volume] in Serum or Plasma [facility] Start: 03-07-2023 Glucose quantitative blood xcpt reagent strip Karma Sharpe MD Work Phone: Start: 03-07-2023 Glucose [Mass/volume] in Serum or Plasma [facility] Start: 03-07-2023 Glucose quantitative blood xcpt reagent strip Karma Sharpe MD Work Phone: Start: 03-07-2023 Glucose [Mass/volume] in Serum or Plasma [facility] Start: 03-07-2023 Glucose quantitative blood xcpt reagent strip Karma Sharpe MD Work Phone: Start: 03-07-2023 Glucose [Mass/volume] in Serum or Plasma [facility] Start: 03-07-2023 Glucose quantitative blood xcpt reagent strip Karma Sharpe MD Work Phone: Start: 03-07-2023 Basic metabolic 2000 panel - Serum or Plasma [facility] Start: 03-07-2023 CBC panel - Blood by Automated count [facility] Start: 03-07-2023 Glucose [Mass/volume] in Serum or Plasma [facility] Start: 03-07-2023 Basic metabolic panel calcium total Chrissy Harris PA-C Work Phone: Start: 03-07-2023 RESPIRATORY CARE EVALUATION ONLY [facility] Start: 03-07-2023 Glucose quantitative blood xcpt reagent strip Karma Sharpe MD Work Phone: Start: 03-07-2023 POCT GLUCOSE METER [facility] Start: 03-07-2023 RESPIRATORY CARE EVALUATION ONLY Karma siegel MD Work Phone: Start: 03-07-2023 Glucose [Mass/volume] in Serum or Plasma [facility] Start: 03-06-2023 Glucose quantitative blood xcpt reagent strip Karma Sharpe MD Work Phone: Start: 03-06-2023 Glucose [Mass/volume] in Serum or Plasma [facility] Start: 03-06-2023 TELEMETRY MONITORING [facility] Start: 03-06-2023 Glucose quantitative blood xcpt reagent strip Karma Sharpe MD Work Phone: Start: 03-06-2023 TRANSFER PATIENT TO NEW UNIT [facility] Start: 03-06-2023 Glucose [Mass/volume] in Serum or Plasma [facility] Start: 03-06-2023 Glucose quantitative blood xcpt reagent strip Karma Sharpe MD Work Phone: Start: 03-06-2023 Glucose [Mass/volume] in Serum or Plasma [facility] Start: 03-06-2023 Glucose quantitative blood xcpt reagent strip Corie Head MD Work Phone: Start: 03-06-2023 Glucose [Mass/volume] in Serum or Plasma [facility] Start: 03-06-2023 XR CHEST 1 VIEW [facility] Start: 03-06-2023 Glucose quantitative blood xcpt reagent strip Corie Head MD Work Phone: Start: 03-06-2023 Radiologic exam chest single view Shona Foster INVENTORY ADMINISTRATOR-REAL ESTATE AGENT Work Phone: Start: 03-06-2023 Basic metabolic 2000 panel - Serum or Plasma [facility] Start: 03-06-2023 CBC panel - Blood by Automated count [facility] Start: 03-06-2023 Magnesium [Mass/volume] in Serum or Plasma [facility] Start: 03-06-2023 Phosphate [Mass/volume] in Serum or Plasma [facility] Start: 03-06-2023 Glucose [Mass/volume] in Serum or Plasma [facility] Start: 03-06-2023 Basic metabolic panel calcium total Chrissy Harris PA-C Work Phone: Start: 03-06-2023 Glucose quantitative blood xcpt reagent strip Corie eHad MD Work Phone: Start: 03-06-2023 POCT GLUCOSE METER [facility] Start: 03-06-2023 PT EVAL AND TREAT [facility] [employer] [place] Start: 03-06-2023 Glucose [Mass/volume] in Serum or Plasma [facility] Start: 03-05-2023 Glucose quantitative blood xcpt reagent strip Corie Head MD Work Phone: Start: 03-05-2023 Glucose [Mass/volume] in Serum or Plasma [facility] Start: 03-05-2023 Glucose quantitative blood xcpt reagent strip Corie Head MD Work Phone: Start: 03-05-2023 Glucose [Mass/volume] in Serum or Plasma [facility] Start: 03-05-2023 Basic metabolic 2000 panel - Serum or Plasma [facility] [employer] [place] Start: 03-05-2023 CBC panel - Blood by Automated count [facility] Start: 03-05-2023 Magnesium [Mass/volume] in Serum or Plasma [facility] Start: 03-05-2023 Phosphate [Mass/volume] in Serum or Plasma [facility] Start: 03-05-2023 XR CHEST 1 VIEW [facility] Start: 03-05-2023 POCT GLUCOSE METER [facility] Start: 03-05-2023 MEASURE HEIGHT [facility] [employer] Start: 03-05-2023 WEIGH PATIENT [facility] Start: 03-05-2023 FULL CODE [facility] Start: 03-05-2023 Glucose quantitative blood xcpt reagent strip Corie Head MD Work Phone: Start: 03-05-2023 ADMIT TO INPATIENT [facility] Start: 03-05-2023 TRANSFER PATIENT TO NEW UNIT [facility] Start: 03-05-2023 Basic metabolic panel calcium total Desmond Tirado PA-C Work Phone: Start: 03-05-2023 Radiologic exam chest single view Desmond Tirado PA-C Work Phone: Start: 03-05-2023 PULSE OXIMETRY, CONTINUOUS WOANA MARIABAHMAN MAGAÑA Start: 03-05-2023 SURGICAL PATHOLOGY EXAM [facility] Start: 03-05-2023 PULSE OXIMETRY, CONTINUOUS Serena George DO Work Phone: Start: 03-05-2023 Level iii surg pathology gross&microscopic exam Sherry Magaña MD Work Phone: Start: 03-05-2023 End: 03-05-2023 Unlisted px abdomen musculoskeletal system Sherry Magaña MD Work Phone: Start: 03-05-2023 VERAB/VERIFY ABORH SHERRY MAGAÑA Start: 03-05-2023 XR CHEST 1 VIEW SHERRY MAGAÑA Start: 03-05-2023 VERAB/VERIFY ABORH Sherry Magaña MD Work Phone: Start: 03-05-2023 Radiologic exam chest single view Edmund George DO Work Phone: Start: 03-02-2023 Basic metabolic 2000 panel - Serum or Plasma NO GENERIC PROVIDER Start: 03-02-2023 TYPE AND SCREEN NO GENERIC PROVIDER Start: 03-02-2023 STAPHYLOCOCCUS AUREUS/MRSA COLONIZATION, CULTURE GABRIELLABAHMAN MAGAÑA Start: 02-13-2023 Computed tomography of abdomen and [...] SHERRY MAGAÑA Start: 01-13-2023 HCG, URINE, QUALITATIVE SHERRY MAGAÑA Start: 01-13-2023 URINALYSIS WITH REFLEX MICROSCOPIC [facility]ERRY MAGAÑA Start: 01-13-2023 CBC W Auto Differential panel - Blood [facility] Start: 01-13-2023 Comprehensive metabolic 2000 panel - Serum or Plasma [facility] Start: 11-26-2022 Dup-scan artl tiara abdl/pel/scrot&/rpr orgn com Deacon Kat MD Work Phone: Start: 11-11-2022 Antibody screen JAQUAN MORROW Comment on above: Order Comment: Specimen Type: BLOOD SPEC IMENOrdering Facility: [facility] Address: [address] [place], [place] [id number] Performed By: #### T SCR ####[facility] [id number] [address] Start: 11-11-2022 Ercp dx collection specimen [...] Radex spine lumbosacral minimum 4 views Jalyn Suresh DO Work Phone: Start: 10-31-2022 Comprehensive metabolic panel Jalyn Suresh DO Work Phone: Start: 10-27-2022 Esophagogastroduodenoscopy transoral diagnostic Jaquan Morrow Start: 10-26-2022 Thyrotropin [Units/volume] in Serum or Plasma Sherry Magaña MD Work Phone: Start: 06-24-2022 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 Breanna Stern INVENTORY ADMINISTRATOR.REAL ESTATE AGENT Work Phone: Start: 03-06-2022 Esophagoscp rig transoral hypopharynx crv esoph Breanna Stern INVENTORY ADMINISTRATOR.REAL ESTATE AGENT Work Phone: Start: 01-29-2022 Revision - value [...] is not exact Start: 01-20-2021 Esophagogastroduodenoscopy Ashutosh Echeverriaar i Start: 12-14-2020 Radex fingr minimum 2 views Vicky Olmedo MD Work Phone: Start: 11-04-2020 Hysterectomy Sanchoit Hajulietteari Start: 07-02-2020 Us pelvic nonobstetric real-time image complete Juanito Laird PA-C Work Phone: Start: 07-02-2020 Blood typing serologic abo Juanito aguilar PA-C Work Phone: Start: 07-02-2020 Complete blood count with white cell differential, automated Juanito INMAN-C Work Phone: Start: 07-02-2020 Comprehensive metabolic [...] Work Phone: Appendectomy Rajni Rouse Cholecystectomy Rajni Lue Colonoscopy Rajni Rouse H/O: surgery S/P gastric [...] of 2) Zoster Vaccines (1 of 2) [facility] Start: 09-21-2026 DTaP/Tdap/Td vaccine (2 - Td or Tdap) DTaP/Tdap/Td vaccine (2 - Td or Tdap) [facility] Start: 09-21-2026 DTaP/Tdap/Td Vaccines (2 - Td or Tdap) DTaP/Tdap/Td Vaccines (2 - Td or Tdap) [facility] Start: 09-21-2026 Tetanus vaccination TETANUS [facility] Start: 09-21-2026 Urine microalbumin profile [facility] Start: 08-08-2024 BP Controlled (<130/80) BP Controlled (<130/80) [facility] Start: 07-02-2024 Diabetes mellitus screening Diabetes Screening [facility] Start: 04-27-2024 BP Controlled (<130/80) BP Controlled (<130/80) [facility] Start: 03-10-2024 Diabetes mellitus screening Diabetes Screening [facility] Start: 01-21-2024 End: 01-21-2024 Patient encounter procedure 01/21/2024 4:40 PM EST Office Visit Dermatology [address] [address] Samara Evans MD [address] [place] [address] new tiny black spots on hand & arm Dermatology Comment on above: new tiny black spots on hand & arm Start: 12-05-2023 BP Controlled (<130/80) BP Controlled (<130/80) [facility] Start: 11-27-2023 BP Controlled (<130/80) BP Controlled (<130/80) [facility] Start: 11-17-2023 End: 11-17-2023 Patient encounter procedure 11/17/2023 10:20 AM EDT Office Visit Gastroenterology [address] [address] Kasie Avalos MD [address] [place] [address] FOLLOW UP Gastroenterology Comment on above: FOLLOW UP Start: 11-08-2023 End: 11-08-2023 Admission to same day surgery center 11/08/2023 1:00 PM EDT [facility] [address] [place] [address] [place] [address] [place] [address] post op one month/ dx lap 10/07/2023 General Surgery Comment on above: post op one month/ dx lap 10/07/2023 Start: 11-01-2023 End: 11-01-2023 Patient encounter procedure 11/01/2023 8:00 AM EDT Appointment Gastroenterology [address] [address] Chichi Miller MD [address] [place] [address] Multiple gastric ulcers [K25.9] Gastroenterology Comment on above: Multiple gastric ulcers [K25.9] Start: 10-27-2023 Thyroid stimulating hormone measurement TSH Level [facility] Start: 10-21-2023 End: 10-21-2023 Patient encounter procedure 10/21/2023 2:00 PM EDT Office Visit Allergy [address] [place] [address] Sara Velasquez MD [address] [place] [address] Facial swelling [R22.0] Allergy Comment on above: Facial swelling [R22.0] Start: 10-20-2023 End: 10-20-2023 Admission to same day surgery center 10/20/2023 2:45 PM EDT - 10/20/2023 4:45 PM EDT Surgery [facility] Operating Room [address] [place] [address] Deacon Kat MD [address] [place], [place] [id number] LAPAROSCOPY DIAGNOSTIC [facility] Comment on above: LAPAROSCOPY DIAGNOSTIC Start: 10-20-2023 End: 10-20-2023 Laps abd prtm&omentum dx w/wo spec br/wa spx LAPAROSCOPY DIAGNOSTIC Chronic abdominal pain History of gastric bypass Pre-op testing 10/20/2023 2:45 PM EDT [facility] Start: 10-20-2023 Subsequent hospital visit by physician 10/20/2023 2:45 PM EDT Hospital Encounter [facility] Operating Room [address] [place] [address] Deacon Kat MD [address] [place] [address] Chronic abdominal pain [R10.9, G89.29], History of gastric bypass [Z98.84], Pre-op testing [Z01.818] [facility] Comment on above: Chronic abdominal pain [R10.9, G89.29], History of gastric bypass [Z98.84], Pre-op testing [Z01.818] Start: 10-20-2023 End: 10-20-2023 Patient encounter procedure 10/20/2023 8:20 AM EDT Office Visit General Surgery [address] [address] Breanna Stern APRN.REAL ESTATE AGENT [address] [place] [address] post op 2-3 wks/ dx lap 10/07/2023 General Surgery Comment on above: post op 2-3 wks/ dx lap 10/07/2023 Start: 10-17-2023 Influenza vaccination Influenza Vaccine (#1) [facility] Start: 10-13-2023 End: 10-13-2023 Patient encounter procedure Gastroenterology Comment on above: cgrt page [id number] Start: 10-13-2023 End: 10-13-2023 ambulatory 10/13/2023 12:00 PM EDT Education Gastroenterology [id number] Dietitian, [address] [place] [address] rt page [id number] Gastroenterology Comment on above: cgrt page [id number] Start: 10-07-2023 End: 10-07-2023 Admission to same day surgery center 10/07/2023 7:30 AM EDT - 10/07/2023 9:15 AM EDT Surgery [facility] Operating Room [address] [place] [address] [place] [address] [place] [id number] LAPAROSCOPY DIAGNOSTIC [facility] Operating Room Comment on above: LAPAROSCOPY DIAGNOSTIC Start: 10-07-2023 End: 10-07-2023 Laps abd prtm&omentum dx w/wo spec br/wa spx LAPAR[facility]COPY DIAGNOSTIC Chronic abdominal pain History of gastric bypass Pre-op testing 10/07/2023 7:30 AM EDT [facility] Start: 10-07-2023 Subsequent hospital visit by physician 10/07/2023 7:30 AM EDT Hospital Encounter [facility] Operating Room [address] [place] [address] [place] [address] [place] [address] Chronic abdominal pain [R10.9, G89.29], History of gastric bypass [Z98.84], Pre-op testing [Z01.818] [facility] Comment on above: Chronic abdominal pain [R10.9, G89.29], History of gastric bypass [Z98.84], Pre-op testing [Z01.818] Start: 10-06-2023 End: 10-06-2023 Anesthesia consultation 10/06/2023 3:40 PM EDT PAT Pre Anesthesia [address] [place] [address] PACC//preop//lap diagnostic//Gutnick// Pre Anesthesia Comment on above: PACC//preop//lap diagnostic//G[facility]nick// Start: 09-30-2023 End: 09-30-2023 Patient encounter procedure 09/30/2023 2:00 PM EDT Office Visit Allergy [address] [place] [address] Sara Velasquez MD [address] [place] [address] Facial swelling [R22.0] Allergy Comment on above: Facial swelling [R22.0] Start: 09-27-2023 End: 09-27-2023 Patient encounter procedure 09/27/2023 3:00 PM EDT Office [place] [id number] surgical reg//preop//lap diagnostic//[facility]nick// [employer] [facility] Comment on above: surgical reg//preop//lap diagnostic//Gut leandro//10/20/2023 Start: 09-22-2023 End: 09-22-2023 Patient encounter procedure 09/22/2023 9:40 AM EDT Office Visit Dermatology [address] [address] Samara Evans MD [address] [place] [address] new tiny black spots on hand & arm Dermatology Comment on above: new tiny black spots on hand & arm Start: 09-09-2023 End: 09-09-2023 Patient encounter procedure 09/09/2023 2:00 PM EDT Office Visit Allergy [address] [place] [phone] Sara Velasquez MD [address] [place], [place] [phone] Facial swelling [R22.0] Allergy Comment on above: Facial swelling [R22.0] Start: 09-08-2023 End: 09-08-2023 Patient encounter procedure 09/08/2023 10:40 AM EDT Office Visit Gastroenterology [address] [address] Kasie Avalos MD [address] [place] [address] 3 month f/u Gastroenterology Comment on above: 3 month f/u Start: 09-03-2023 End: 09-03-2023 Patient encounter procedure 09/03/2023 12:45 PM EDT Office Visit Pulmonary Medicine [address] [place] [address] Alan Jurado MD [address] [place] [address] Follow-up of left lower lobe pneumonia Pulmonary Medicine Comment on above: Follow-up of left lower lobe pneumonia Start: 08-30-2023 End: 08-30-2023 Nursing evaluation of patient and report Gastroenterology Comment on above: Gastroesophageal reflux disease, unspeci fied whether esophagitis present [K21.9] Start: 08-26-2023 End: 08-26-2023 Nursing evaluation of patient and report 08/26/2023 3:00 PM EDT Nurse Visit Gastroenterology [address] [address] 2, Nurse Gi Lab [address] [address] Gastroesophageal reflux disease, unspecified whether esophagitis present [K21.9] Gastroenterology Comment on above: Gastroesophageal reflux disease, unspeci fied whether esophagitis present [K21.9] Start: 08-26-2023 End: 08-26-2023 Patient encounter procedure 08/26/2023 3:00 PM EDT Appointment Gastroenterology [address] [place] [phone] [place] [address] [place] [address] Gastroesophageal reflux disease, unspecified whether esophagitis present [K21.9] Gastroenterology Comment on above: Gastroesophageal reflux disease, unspeci fied whether esophagitis present [K21.9] Start: 08-09-2023 End: 08-09-2023 Patient encounter procedure 08/09/2023 2:00 PM EDT Office Visit Pain Management [address] [place], [place] [phone] Vic Ramos MD [address] [place] [address] [place] [address] follow up Pain Management Comment on above: follow up Start: 08-09-2023 End: 08-09-2023 Follow-up encounter 08/09/2023 9:00 AM EDT [facility] Neurology [address] [place] [address] Pablo Lebron PSYD [address] [place], [place] [phone] follow up Neurology Comment on above: follow up Start: 08-04-2023 End: 08-04-2023 Patient encounter procedure 08/04/2023 9:00 AM EDT Office Visit Pain Management [address] [place] [address] Boogie Murguia MD [address] [place] [id number] medication refill (ketamine) Pain Management Comment on above: medication refill (ketamine) Start: 07-28-2023 End: 07-28-2023 Patient encounter procedure 07/28/2023 10:00 AM EDT Office Visit Gastroenterology [address] [address] Kasie Avalos MD [address] [place] [address] 3 month f/u Gastroenterology Comment on above: 3 month f/u Start: 07-22-2023 End: 07-22-2023 Patient encounter procedure 07/22/2023 9:30 AM EDT Office Visit Colorectal Surgery [address] [address] [place]es De Oca, SLIM.REAL ESTATE AGENT [address] [place] [address] Constipation, unspecified constipation type [K59.00] Colorectal Surgery Comment on above: Constipation, unspecified constipation t ype [K59.00] Start: 07-22-2023 End: 07-22-2023 Admission to same day surgery center 07/22/2023 9:00 AM EDT Procedure Colorectal Surgery [address] [address] [place] Montes De Oca, SLIM.REAL ESTATE AGENT [address] [place] [address] Constipation, unspecified constipation type [K59.00] Colorectal Surgery Comment on above: Constipation, unspecified constipation t ype [K59.00] Start: 07-22-2023 End: 07-22-2023 Nursing evaluation of patient and report 07/22/2023 8:00 AM EDT Nurse Visit Gastroenterology [address] [address] Lab, Nurse Gi I [address] [place] [address] Gastroesophageal reflux disease, unspecified whether esophagitis present [K21.9] Gastroenterology Comment on above: Gastroesophageal reflux disease, unspeci fied whether esophagitis present [K21.9] Start: 07-20-2023 End: 07-20-2023 Professional / ancillary services management 07/20/2023 2:00 PM EDT Ancillary Procedure [facility] [address] [facility] [address] [place] [address] [facility] Start: 07-20-2023 End: 07-20-2023 Nursing evaluation of patient and report 07/20/2023 1:30 PM EDT Nurse Visit Gastroenterology [address] [address] Lab, Nurse Gi I [address] [place] [address] Gastroesophageal reflux disease, unspecified whether esophagitis present [K21.9] Gastroenterology Comment on above: Gastroesophageal reflux disease, unspeci fied whether esophagitis present [K21.9] Start: 07-20-2023 End: 07-20-2023 Patient encounter procedure Gastroenterology Comment on above: Gastroesophageal reflux disease, unspeci fied whether esophagitis present [K21.9] Start: 07-17-2023 [facility] Start: 07-17-2023 Referral to general surgeon [facility] Start: 07-17-2023 Hospital admission [facility] Start: 07-15-2023 End: 07-15-2023 Patient encounter procedure 07/15/2023 3:15 PM EDT Office Visit Pain Management [address] [place] [address] Vic Ramos MD [address] [facility] [address] [place] [place] [id number] est Pain Management Comment on above: est Start: 07-15-2023 End: 07-15-2023 Patient encounter procedure 07/15/2023 7:30 AM EDT Office Visit Pain Management [id number] [place] [address] May Ramey APRN.REAL ESTATE AGENT [address] [place] [address] Needs medication, unknown who can order Pain Management Comment on above: Needs medication, unknown who can order Start: 07-09-2023 End: 07-09-2023 Follow-up encounter 07/09/2023 9:00 AM EDT [facility] Neurology [address] [place] [address] [place] [address] [place] [address] follow up Neurology Comment on above: follow up Start: 07-07-2023 End: 07-07-2023 Patient encounter procedure 07/07/2023 10:30 AM EDT Office Visit Colorectal Surgery [address] [id number] Vonda Hercules PA-C [address] [place] [address] Constipation, unspecified constipation type [K59.00] Colorectal Surgery Comment on above: Constipation, unspecified constipation t ype [K59.00] Start: 07-07-2023 End: 07-07-2023 Admission to same day surgery center 07/07/2023 10:00 AM EDT Procedure Colorectal Surgery [address] [address] Vonda Hercules PA-C [address] [place] [address] Constipation, unspecified constipation type [K59.00] Colorectal Surgery Comment on above: Constipation, unspecified constipation t ype [K59.00] Start: 06-23-2023 End: 06-23-2023 Patient encounter procedure 06/23/2023 9:00 AM EDT Office Visit Plastic Surgery [address] [address] Juana Padilla, INVENTORY ADMINISTRATOR.REAL ESTATE AGENT [address] [facility] [place] [address] CONSULT FOR SKIN REMOVAL WEIGHT LOSS SURGERY PROVIDER LISSET KAT FV 01/2022 @ [facility] Plastic Surgery Comment on above: CONSULT FOR SKIN REMOVAL WEIGHT LOSS RED KENYON PROVIDER LISSET KAT FV 01/2022 @ [facility] Start: 06-18-2023 End: 06-18-2023 Follow-up encounter 06/18/2023 4:00 PM EDT [facility] [address] [place] [address] [place] [address] Vic Ramos MD [address] [place] [address] [place] [address] Hospital Follow Up chronic pain Pain Management Comment on above: Hospital Follow Up chronic pain Start: 06-18-2023 End: 06-18-2023 Patient encounter procedure 06/18/2023 10:00 AM EDT Office Visit General Surgery [address] [id number] Breanna Stern, SLIM.REAL ESTATE AGENT [address] [place] [address] Post PEG-J placement General Surgery Comment on above: Post PEG-J placement Start: 06-15-2023 End: 06-15-2023 Patient encounter procedure 06/15/2023 11:00 AM EDT Office Visit General Surgery [address] [address] Breanna Stern, INVENTORY ADMINISTRATOR.REAL ESTATE AGENT [address] [place] [address] Post PEG-J placement General Surgery Comment on above: Post PEG-J placement Start: 06-13-2023 BP CONTROLLED (<130/80) BP CONTROLLED (<130/80) [facility] Start: 05-30-2023 Bacteria identified in Urine by Culture [facility] Start: 04-12-2023 End: 04-12-2023 Telemedicine consultation with patient 04/12/2023 9:00 AM EST Telemedicine [facility] [address] [place] [address] [place] [address] [place] [address] [facility] Start: 11-23-2022 End: 11-24-2023 US MESENTERIC ARTERY CMPLT VAS LAB US MESENTERIC ARTERY CMPLT VAS LAB Vascular Lab [place] Chronic nausea RUQ pain Expected: 11/23/2022, Expires: 11/24/2023 [facility] Work Phone: Comment on above: Expected: 11/23/2022, Expires: Start: 11-18-2022 End: 01-18-2023 25-hydroxyvitamin D3 [Mass/volume] in Serum or Plasma VITAMIN D 25 HYDROXY Lab Routine S/P bariatric surgery Impaired intestinal absorption Expected: 11/18/2022 (Approximate), Expires: 01/18/2023 [facility] Work Phone: Comment on above: Expected: 11/18/2022 (Approximate), Expi res: 01/18/2023 Start: 11-18-2022 End: 01-18-2023 CBC panel - Blood by Automated count CBC Lab Routine S/P bariatric surgery Impaired intestinal absorption Expected: 11/18/2022 (Approximate), Expires: 01/18/2023 [facility] Work Phone: Comment on above: Expected: 11/18/2022 (Approximate), Expi res: 01/18/2023 Start: 11-18-2022 End: 01-18-2023 Cobalamin (Vitamin B12) [Mass/volume] in Serum or Plasma VITAMIN B12 BLOOD Lab Routine S/P bariatric surgery Impaired intestinal absorption Expected: 11/18/2022 (Approximate), Expires: 01/18/2023 [facility] Work Phone: Comment on above: Expected: 11/18/2022 (Approximate), Expi res: 01/18/2023 Start: 11-18-2022 End: 01-18-2023 Comprehensive metabolic 2000 panel - Serum or Plasma COMP METABOLIC PANEL Lab Routine S/P bariatric surgery Impaired intestinal absorption Expected: 11/18/2022 (Approximate), Expires: 01/18/2023 [facility] Work Phone: Comment on above: Expected: 11/18/2022 (Approximate), Expi res: 01/18/2023 Start: 11-18-2022 End: 01-18-2023 Ferritin [Mass/volume] in Serum or Plasma FERRITIN BLD Lab Routine S/P bariatric surgery Impaired intestinal absorption Expected: 11/18/2022 (Approximate), Expires: 01/18/2023 [facility] Work Phone: Comment on above: Expected: 11/18/2022 (Approximate), Expi res: 01/18/2023 Start: 11-18-2022 End: 01-18-2023 Folate [Mass/volume] in Serum or Plasma FOLATE SERUM Lab Routine S/P bariatric surgery Impaired intestinal absorption Expected: 11/18/2022 (Approximate), Expires: 01/18/2023 [facility] Work Phone: Comment on above: Expected: 11/18/2022 (Approximate), Expi res: 01/18/2023 Start: 11-18-2022 End: 01-18-2023 Iron and Iron binding capacity panel - Serum or Plasma IRON + TIBC Lab Routine S/P bariatric surgery Impaired intestinal absorption Expected: 11/18/2022 (Approximate), Expires: 01/18/2023 [facility] Work Phone: Comment on above: Expected: 11/18/2022 (Approximate), Expi res: 01/18/2023 Start: 11-18-2022 End: 01-18-2023 Parathyrin.intact [Mass/volume] in Serum or Plasma PTH INTACT BLD Lab Routine S/P bariatric surgery Impaired intestinal absorption Expected: 11/18/2022 (Approximate), Expires: 01/18/2023 [facility] Work Phone: Comment on above: Expected: 11/18/2022 (Approximate), Expi res: 01/18/2023 Start: 11-18-2022 End: 01-18-2023 Retinol [Mass/volume] in Serum or Plasma VITAMIN A/RETINOL Lab Routine S/P bariatric surgery Impaired intestinal absorption Expected: 11/18/2022 (Approximate), Expires: 01/18/2023 [facility] Work Phone: Comment on above: Expected: 11/18/2022 (Approximate), Expi res: 01/18/2023 Start: 11-18-2022 End: 01-18-2023 VITAMIN B1 (THIAMINE), WHOLE BLOOD VITAMIN B1 (THIAMINE), WHOLE BLOOD Lab Routine S/P bariatric surgery Impaired intestinal absorption Expected: 11/18/2022 (Approximate), Expires: 01/18/2023 [facility] Work Phone: Comment on above: Expected: 11/18/2022 (Approximate), Expi res: 01/18/2023 Start: 11-18-2022 End: 01-18-2023 Zinc [Mass/volume] in Serum or Plasma ZINC BLD Lab Routine S/P bariatric surgery Impaired intestinal absorption Expected: 11/18/2022 (Approximate), Expires: 01/18/2023 [facility] Work Phone: Comment on above: Expected: 11/18/2022 (Approximate), Expi res: 01/18/2023 Start: 11-04-2022 End: 01-04-2023 Amylase [Enzymatic activity/volume] in Serum or Plasma [facility] Work Phone: Comment on above: Expected: 11/04/2022, Expires: 3 Start: 11-04-2022 End: 01-04-2023 Lipase [Enzymatic activity/volume] in Serum or Plasma [facility] Work Phone: Comment on above: Expected: 11/04/2022, Expires: 3 Start: 10-16-2022 Covid-19 Vaccine () Covid-19 Vaccine () [facility] Start: 10-16-2022 Influenza vaccination [facility] Start: 09-15-2022 Influenza vaccination Flu vaccine (#1) [facility] Start: 07-28-2022 End: 09-27-2022 CBC W Auto Differential panel - Blood CBC + DIFF Lab Routine Rash and nonspecific skin eruption Expected: 07/28/2022, Expires: 09/27/2022 [facility] Work Phone: Comment on above: Expected: 07/28/2022, Expires: 3 Start: 07-28-2022 End: 09-27-2022 Comprehensive metabolic 2000 panel - Serum or Plasma COMP METABOLIC PANEL Lab Routine Rash and nonspecific skin eruption Facial edema Expected: 07/28/2022, Expires: 09/27/2022 [facility] Work Phone: Comment on above: Expected: 07/28/2022, Expires: 3 Start: 06-12-2022 End: 08-12-2022 MISAEL BY IFA WITH REFLEX [facility] Work Phone: Comment on above: Expected: 06/12/2022, Expires: 3 Start: 06-12-2022 End: 08-12-2022 Borrelia burgdorferi IgG and IgM panel - Serum [facility] Work Phone: Comment on above: Expected: 06/12/2022, Expires: 3 Start: 06-12-2022 End: 08-12-2022 Cyclic citrullinated peptide IgG Ab [Units/volume] in Serum or Plasma [facility] Work Phone: Comment on above: Expected: 06/12/2022, Expires: 3 Start: 06-12-2022 End: 08-12-2022 MONOCLONAL PROTEIN, SERUM (BLOOD) [facility] Work Phone: Comment on above: Expected: 06/12/2022, Expires: 3 Start: 06-12-2022 End: 08-12-2022 Niacin [Mass/volume] in Serum or Plasma [facility] Work Phone: Comment on above: Expected: 06/12/2022, Expires: 3 Start: 06-12-2022 End: 08-12-2022 PROTEIN ELECTROPHORESIS SERUM W/INTERP [facility] Work Phone: Comment on above: Expected: 06/12/2022, Expires: 3 Start: 06-12-2022 End: 08-12-2022 Pyridoxine [Mass/volume] in Serum or Plasma [facility] Work Phone: Comment on above: Expected: 06/12/2022, Expires: 3 Start: 06-12-2022 End: 08-12-2022 VITAMIN B1 (THIAMINE), WHOLE BLOOD [facility] Work Phone: Comment on above: Expected: 06/12/2022, Expires: Start: 05-03-2022 End: 07-03-2022 25-hydroxyvitamin D3 [Mass/volume] in Serum or Plasma VITAMIN D 25 HYDROXY Lab Routine S/P gastric bypass Postoperative malabsorption Expected: 05/03/2022 (Approximate), Expires: 07/03/2022 [facility] Work Phone: Comment on above: Expected: 05/03/2022 (Approximate), Expi res: 07/03/2022 Start: 05-03-2022 End: 07-03-2022 CBC panel - Blood by Automated count CBC Lab Routine S/P gastric bypass Postoperative malabsorption Expected: 05/03/2022 (Approximate), Expires: 07/03/2022 [facility] Work Phone: Comment on above: Expected: 05/03/2022 (Approximate), Expi res: 07/03/2022 Start: 05-03-2022 End: 07-03-2022 Cobalamin (Vitamin B12) [Mass/volume] in Serum or Plasma VITAMIN B12 BLOOD Lab Routine S/P gastric bypass Postoperative malabsorption Expected: 05/03/2022 (Approximate), Expires: 07/03/2022 [facility] Work Phone: Comment on above: Expected: 05/03/2022 (Approximate), Expi res: 07/03/2022 Start: 05-03-2022 End: 07-03-2022 Comprehensive metabolic 2000 panel - Serum or Plasma COMP METABOLIC PANEL Lab Routine S/P gastric bypass Postoperative malabsorption Expected: 05/03/2022 (Approximate), Expires: 07/03/2022 [facility] Work Phone: Comment on above: Expected: 05/03/2022 (Approximate), Expi res: 07/03/2022 Start: 05-03-2022 End: 07-03-2022 Ferritin [Mass/volume] in Serum or Plasma FERRITIN BLD Lab Routine S/P gastric bypass Postoperative malabsorption Expected: 05/03/2022 (Approximate), Expires: 07/03/2022 [facility] Work Phone: Comment on above: Expected: 05/03/2022 (Approximate), Expi res: 07/03/2022 Start: 05-03-2022 End: 07-03-2022 Folate [Mass/volume] in Serum or Plasma FOLATE SERUM Lab Routine S/P gastric bypass Postoperative malabsorption Expected: 05/03/2022 (Approximate), Expires: 07/03/2022 [facility] Work Phone: Comment on above: Expected: 05/03/2022 (Approximate), Expi res: 07/03/2022 Start: 05-03-2022 End: 07-03-2022 Iron and Iron binding capacity panel - Serum or Plasma IRON + TIBC Lab Routine S/P gastric bypass Postoperative malabsorption Expected: 05/03/2022 (Approximate), Expires: 07/03/2022 [facility] Work Phone: Comment on above: Expected: 05/03/2022 (Approximate), Expi res: 07/03/2022 Start: 05-03-2022 End: 07-03-2022 Parathyrin.intact [Mass/volume] in Serum or Plasma PTH INTACT BLD Lab Routine S/P gastric bypass Postoperative malabsorption Expected: 05/03/2022 (Approximate), Expires: 07/03/2022 [facility] Work Phone: Comment on above: Expected: 05/03/2022 (Approximate), Expi res: 07/03/2022 Start: 05-03-2022 End: 07-03-2022 Thyrotropin [Units/volume] in Serum or Plasma TSH BLD Lab Routine S/P gastric bypass Postoperative malabsorption Expected: 05/03/2022 (Approximate), Expires: 07/03/2022 [facility] Work Phone: Comment on above: Expected: 05/03/2022 (Approximate), Expi res: 07/03/2022 Start: 05-03-2022 End: 07-03-2022 VITAMIN B1 (THIAMINE), WHOLE BLOOD VITAMIN B1 (THIAMINE), WHOLE BLOOD Lab Routine S/P gastric bypass Postoperative malabsorption Expected: 05/03/2022 (Approximate), Expires: 07/03/2022 [facility] Work Phone: Comment on above: Expected: 05/03/2022 (Approximate), Expi res: 07/03/2022 Start: 12-25-2021 End: 12-17-2022 PH HUERTA INSERT OFF MEDS PH HUERTA INSERT OFF MEDS Endoscopy Routine Regurgitation of food Gastroesophageal reflux disease, unspecified whether esophagitis present Expected: 12/25/2021, Expires: 12/17/2022 [facility] Work Phone: Comment on above: Expected: 12/25/2021, Expires: Start: 10-16-2021 Influenza vaccination [facility] Start: 10-09-2021 End: 12-09-2021 25-hydroxyvitamin D3 [Mass/volume] in Serum or Plasma VITAMIN D 25 HYDROXY Lab Routine S/P laparoscopic sleeve gastrectomy Expected: 10/09/2021, Expires: 12/09/2021 [facility] Work Phone: Comment on above: Expected: 10/09/2021, Expires: Start: 10-09-2021 End: 12-09-2021 Cobalamin (Vitamin B12) [Mass/volume] in Serum or Plasma VITAMIN B12 BLOOD Lab Routine S/P laparoscopic sleeve gastrectomy Expected: 10/09/2021, Expires: 12/09/2021 [facility] Work Phone: Comment on above: Expected: 10/09/2021, Expires: 2 Start: 10-09-2021 End: 12-09-2021 Ferritin [Mass/volume] in Serum or Plasma FERRITIN BLD Lab Routine S/P laparoscopic sleeve gastrectomy Expected: 10/09/2021, Expires: 12/09/2021 [facility] Work Phone: Comment on above: Expected: 10/09/2021, Expires: 2 Start: 10-09-2021 End: 12-09-2021 Folate [Mass/volume] in Serum or Plasma FOLATE SERUM Lab Routine S/P laparoscopic sleeve gastrectomy Expected: 10/09/2021, Expires: 12/09/2021 [facility] Work Phone: Comment on above: Expected: 10/09/2021, Expires: 2 Start: 10-09-2021 End: 12-09-2021 Hemoglobin A1c in Blood HGB A1C Lab Routine S/P laparoscopic sleeve gastrectomy Expected: 10/09/2021, Expires: 12/09/2021 [facility] Work Phone: Comment on above: Expected: 10/09/2021, Expires: 2 Start: 10-09-2021 End: 12-09-2021 Iron and Iron binding capacity panel - Serum or Plasma IRON + TIBC Lab Routine S/P laparoscopic sleeve gastrectomy Expected: 10/09/2021, Expires: 12/09/2021 [facility] Work Phone: Comment on above: Expected: 10/09/2021, Expires: 2 Start: 10-09-2021 End: 12-09-2021 Lipid 1996 panel - Serum or Plasma LIPID PANEL BASIC Lab Routine S/P laparoscopic sleeve gastrectomy Expected: 10/09/2021, Expires: 12/09/2021 [facility] Work Phone: Comment on above: Expected: 10/09/2021, Expires: 2 Start: 10-09-2021 End: 12-09-2021 Parathyrin.intact [Mass/volume] in Serum or Plasma PTH INTACT BLD Lab Routine S/P laparoscopic sleeve gastrectomy Expected: 10/09/2021, Expires: 12/09/2021 [facility] Work Phone: Comment on above: Expected: 10/09/2021, Expires: 2 Start: 10-09-2021 End: 12-09-2021 Thyrotropin [Units/volume] in Serum or Plasma TSH BLD Lab Routine S/P laparoscopic sleeve gastrectomy Expected: 10/09/2021, Expires: 12/09/2021 [facility] Work Phone: Comment on above: Expected: 10/09/2021, Expires: 2 Start: 10-09-2021 End: 12-09-2021 VITAMIN B1 (THIAMINE), WHOLE BLOOD VITAMIN B1 (THIAMINE), WHOLE BLOOD Lab Routine S/P laparoscopic sleeve gastrectomy Expected: 10/09/2021, Expires: 12/09/2021 [facility] Work Phone: Comment on above: Expected: 10/09/2021, Expires: 2 Start: 06-23-2021 End: 06-23-2021 Patient encounter procedure 06/23/2021 Office Visit Sports Medicine Belen Stovall MD [address] [address] Sports Medicine Outpatient Care [facility] Start: 04-15-2021 COVID-19 VACCINE (3 - Booster for Woo series) COVID-19 VACCINE (3 - Booster for Woo series) [facility] Start: 10-16-2020 Influenza vaccination [facility] Start: 10-17-2019 Influenza vaccination INFLUENZA VACCINE (#1) [email or web address] Start: 2019 HPV TESTING HPV TESTING [facility] Start: 2019 Screening for malignant neoplasm of cervix [facility] Start: 2010 PAP TESTING PAP TESTING [facility] Start: 2010 Screening for malignant neoplasm of cervix [facility] Start: 2008 DTaP/Tdap/Td vaccine (1 - Tdap) DTaP/Tdap/Td vaccine (1 - Tdap) [employer] Work Phone: Start: 2008 Hepatitis A Vaccines (1 of 2 - Risk 2-dose series) Hepatitis A Vaccines (1 of 2 - Risk 2-dose series) [facility] Start: 2008 Hepatitis B Vaccine (1 of 3 - 19+ 3-dose series) Hepatitis B Vaccine (1 of 3 - 19+ 3-dose series) [facility] Start: 2008 Hepatitis B Vaccines (1 of 3 - 19+ 3-dose series) Hepatitis B Vaccines (1 of 3 - 19+ 3-dose series) [facility] Start: 2008 Third diphtheria, tetanus and acellular pertussis (DTaP) vaccination TDAP (ADULT) [facility] Start: 2008 Urine microalbumin profile DTAP,TDAP,TD (1 - Tdap) [facility] Start: 2007 ANNUAL PCP TEAM CHRONIC DISEASE VISIT ANNUAL PCP TEAM CHRONIC DISEASE VISIT [facility] Start: 2007 BP CONTROLLED (<130/80) BP CONTROLLED (<130/80) [facility] Start: 2007 HEPATITIS C SCREENING HEPATITIS C SCREENING [facility] Start: 2007 Hepatitis C screening [facility] Start: 2007 HIV SCREENING HIV SCREENING [facility] Start: 2007 HIV screening HIV Screening [facility] Start: 2007 SPIROMETRY SPIROMETRY [facility] Start: 2007 Tetanus vaccination TETANUS [facility] Start: 2004 HIV screening [facility] Start: 2002 HIV screening HIV SCREENING DISCUSSION [facility] Start: 2002 Varicella vaccination Varicella Vaccines (1 of 2 - 13+ 2-dose series) [facility] Start: 2001 COVID-19 VACCINE (1) COVID-19 VACCINE (1) [facility] Start: 2001 Depression Screen Depression Screen [facility] Start: 1995 PNEUMOCOCCAL (1 - PCV) PNEUMOCOCCAL (1 - PCV) [facility] Start: 1995 Pneumococcal vaccination Pneumococcal Vaccine (1 - PCV) [facility] Start: 1995 Pneumococcal Vaccine: Pediatrics (0 to 5 Years) and At-Risk Patients (6 to 64 Years) (1 of 2 - PCV) Pneumococcal Vaccine: Pediatrics (0 to 5 Years) and At-Risk Patients (6 to 64 Years) (1 of 2 - PCV) [facility] Start: 1990 MMR Vaccines (1 of 1 - Standard series) MMR Vaccines (1 of 1 - Standard series) [facility] Start: 1990 Varicella vaccination Varicella Vaccines (1 of 2 - 2-dose childhood series) [facility] Start: 1990 Varicella vaccine (1 of 2 - 2-dose childhood series) Varicella vaccine (1 of 2 - 2-dose childhood series) [facility] Start: 1989 HEPATITIS B (1 of 3 - 3-dose series) HEPATITIS B (1 of 3 - 3-dose series) [facility] Start: 1989 Hepatitis B Vaccine (1 of 3 - 3-dose series) Hepatitis B Vaccine (1 of 3 - 3-dose series) [facility] Start: 1989 Hepatitis B Vaccines (1 of 3 - 3-dose series) Hepatitis B Vaccines (1 of 3 - 3-dose series) [facility] Start: 1989 Hepatitis C antibody, confirmatory test HEPATITIS C VIRUS SCREENING [facility] Start: 1989 Hepatitis C screening [facility] Start: 1989 HIV screening HIV Screening [facility] Start: 1989 Lipid panel Lipid Panel [facility] Start: 1989 Thyroid stimulating hormone measurement TSH [facility] Start: 1989 TSH Qn TSH [facility] Start: 1989 Yearly Adult Physical Yearly Adult Physical [facility] End: 07-23-2023 ADULT [place] [facility]ULT [place] [facility] Endoscopy Routine Constipation, unspecified constipation type 1 Occurrences starting 07/22/2022 until 07/23/2023 [facility] Work Phone: Comment on above: 1 Occurrences starting 07/22/2022 until 07/23/2023 End: 03-23-2023 Basic metabolic 2000 panel - Serum or Plasma Basic Metabolic Panel Lab Routine Morning draw (Lab) for 3 Occurrences starting 03/21/2023 until 03/23/2023 [facility] Work Phone: Comment on above: Morning draw (Lab) for 3 Occurrences sta rting 03/21/2023 until 03/23/2023 End: 03-12-2023 CBC panel - Blood by Automated count CBC Lab Routine Morning draw (Lab) for 3 Occurrences starting 03/10/2023 until 03/12/2023, 1 completed [facility] Work Phone: Comment on above: Morning draw (Lab) for 3 Occurrences sta rting 03/10/2023 until 03/12/2023, 1 completed End: 03-23-2023 CBC panel - Blood by Automated count CBC Lab Routine Morning draw (Lab) for 3 Occurrences starting 03/21/2023 until 03/23/2023 [facility] Work Phone: Comment on above: Morning draw (Lab) for 3 Occurrences sta rting 03/21/2023 until 03/23/2023 End: 03-16-2023 CBC W Auto Differential panel - Blood CBC and Auto Differential Lab STAT Once (Lab) for 1 Occurrences starting 03/16/2023 until 03/16/2023 [facility] Work Phone: Comment on above: Once (Lab) for 1 Occurrences starting until 03/16/2023 End: 03-16-2023 Comprehensive metabolic 2000 panel - Serum or Plasma Comprehensive metabolic panel Lab STAT STAT (Lab) for 1 Occurrences starting 03/16/2023 until 03/16/2023 [facility] Work Phone: Comment on above: STAT (Lab) for 1 Occurrences starting until 03/16/2023 End: 01-03-2024 Ct angio abd&plvis cntrst mtrl w/wo cntrst img CTA ABD/PEL W IVCON Radiology Routine Generalized abdominal pain 1 Occurrences starting 12/04/2022 until 01/03/2024 [facility] Work Phone: Comment on above: 1 Occurrences starting 12/04/2022 until 01/03/2024 ECG 12 Lead ECG 12 Lead ECG STAT As needed until discontinued starting 06/29/2023 [facility] Work Phone: Comment on above: As needed until discontinued starting ECG 12 Lead ECG 12 Lead ECG STAT 06/29/2023 8:50 PM EDT [facility] Work Phone: End: 01-28-2023 ECG COMPLETE ECG COMPLETE ECG Routine Pre-op evaluation 1 Occurrences starting 01/28/2022 until 01/28/2023 [facility] Work Phone: Comment on above: 1 Occurrences starting 01/28/2022 until 01/28/2023 End: 11-17-2022 EGD - THERAPEUTIC, EUS, OR TUBE INTERVENTIONS EGD - THERAPEUTIC, EUS, OR TUBE INTERVENTIONS Endoscopy Routine Gastroesophageal reflux disease without esophagitis 1 Occurrences starting 11/17/2021 until 11/17/2022 [facility] Work Phone: Comment on above: 1 Occurrences starting 11/17/2021 until 11/17/2022 End: 03-05-2023 EGD - THERAPEUTIC, EUS, OR TUBE INTERVENTIONS EGD - THERAPEUTIC, EUS, OR TUBE INTERVENTIONS Endoscopy Routine Esophageal dysphagia S/P gastric bypass 1 Occurrences starting 03/05/2022 until 03/05/2023 [facility] Work Phone: Comment on above: 1 Occurrences starting 03/05/2022 until 03/05/2023 End: 04-27-2024 EGD - THERAPEUTIC, EUS, OR TUBE INTERVENTIONS EGD - THERAPEUTIC, EUS, OR TUBE INTERVENTIONS Endoscopy Routine Gastroesophageal reflux disease, unspecified whether esophagitis present 1 Occurrences starting 04/28/2023 until 04/27/2024 [facility] Work Phone: Comment on above: 1 Occurrences starting 04/28/2023 until 04/27/2024 End: 10-09-2022 EGD BARIATRIC EGD BARIATRIC Endoscopy Routine Gastroesophageal reflux disease, unspecified whether esophagitis present Bariatric surgery status Class 1 obesity with serious comorbidity and body mass index (BMI) of 31.0 to 31.9 in adult, unspecified obesity type S/P laparoscopic sleeve gastrectomy 1 Occurrences starting 10/09/2021 until 10/09/2022 [facility] Work Phone: Comment on above: 1 Occurrences starting 10/09/2021 until 10/09/2022 End: 10-21-2023 EGD DIAGNOSTIC EGD DIAGNOSTIC Endoscopy Routine Epigastric pain 1 Occurrences starting 10/20/2022 until 10/21/2023 [facility] Work Phone: Comment on above: 1 Occurrences starting 10/20/2022 until 10/21/2023 End: 09-07-2024 EGD DIAGNOSTIC EGD DIAGNOSTIC Endoscopy Routine Multiple gastric ulcers 1 Occurrences starting 09/08/2023 until 09/07/2024 [facility] Work Phone: Comment on above: 1 Occurrences starting 09/08/2023 until 09/07/2024 Electrocardiogram, 12-lead PRN ACS symptoms Electrocardiogram, 12-lead PRN ACS symptoms ECG Routine As needed until discontinued starting 03/05/2023 [facility] Work Phone: Comment on above: As needed until discontinued starting Electrocardiogram, 12-lead PRN ACS symptoms Electrocardiogram, 12-lead PRN ACS symptoms ECG Routine 03/08/2023 10:45 AM EST [facility] Work Phone: Electrocardiogram, 12-lead PRN ACS symptoms Electrocardiogram, 12-lead PRN ACS symptoms ECG Routine As needed until discontinued starting 03/16/2023 [facility] Work Phone: Comment on above: As needed until discontinued starting Glucose [Mass/volume ] in Serum or Plasma POCT Glucose Point of Care Testing - Docked Device Routine Every 4 hours (Lab) until discontinued starting 03/05/2023, 30 completed [facility] Work Phone: Comment on above: Every 4 hours (Lab) until discontinued s tarting 03/05/2023, completed Helicobacter pylori Ag [Presence] in Stool by Immunoassay HELICOBACTER PYLORI ANTIGEN BY EIA, STOOL Microbiology Routine Multiple gastric ulcers Ordered: 09/08/2023 [facility] Comment on above: Ordered: 09/08/2023 End: 12-04-2023 Hepatobil syst imag inc gb w/pharma intervenj NM HEPATOBILIARY W EF AND/OR RX Radiology Routine Nausea RUQ pain History of cholecystectomy 1 Occurrences starting 11/04/2022 until 12/04/2023 [facility] Work Phone: Comment on above: 1 Occurrences starting 11/04/2022 until 12/04/2023 End: 03-18-2023 Incentive spirometry Instruct Incentive spirometry Instruct Respiratory Care Routine Once for 1 Occurrences starting 03/18/2023 until 03/18/2023 [facility] Work Phone: Comment on above: Once for 1 Occurrences starting 03/18/19 until 03/18/2023 Injx anes celiac ple xus w/wo radiologic monitrng DIAG/THER NRV BLK CELIAC PLEXUS Procedures Routine Chronic pain syndrome Ordered: 01/11/2023 [facility] Work Phone: Comment on above: Ordered: 01/11/2023 End: 06-30-2023 Methicillin resistant Staphylococcus aureus [Presence] in Nose by Organism specific culture Staphylococcus Aureus/MRSA Colonization, Culture Microbiology Routine Once (Lab) for 1 Occurrences starting 06/30/2023 until 06/30/2023 [facility] Work Phone: Comment on above: Once (Lab) for 1 Occurrences starting until 06/30/2023 Patient Education [facility] Work Phone: Patient referral [facility] Work Phone: End: 04-27-2024 PH HUERTA INSERT ON MEDS PH HUERTA INSERT ON MEDS Endoscopy Routine Gastroesophageal reflux disease, unspecified whether esophagitis present 1 Occurrences starting 04/28/2023 until 04/27/2024 [facility] Work Phone: Comment on above: 1 Occurrences starting 04/28/2023 until 04/27/2024 End: 11-18-2022 PH IMPEDANCE INSERT OFF MEDS PH IMPEDANCE INSERT OFF MEDS Endoscopy Routine Gastroesophageal reflux disease without esophagitis S/P laparoscopic sleeve gastrectomy 1 Occurrences starting 11/19/2021 until 11/18/2022 [facility] Work Phone: Comment on above: 1 Occurrences starting 11/19/2021 until 11/18/2022 End: 03-05-2023 Pulse oximetry, continuous Pulse oximetry, continuous Respiratory Care Routine Continuous until discontinued starting 03/05/2023 [facility] Work Phone: Comment on above: Continuous until discontinued starting 0 03/05/2023 End: 06-30-2023 Pulse oximetry, continuous Pulse oximetry, continuous Respiratory Care Routine Continuous until discontinued starting 06/30/2023 [facility] Work Phone: Comment on above: Continuous until discontinued starting 0 06/30/2023 End: 10-18-2023 Radiologic exam upr gi trc double contrast study XR UPPER GI ROUTINE DOUBLE CONTRAST/AIR Radiology Routine S/P bariatric surgery Gastroesophageal reflux disease, unspecified whether esophagitis present 1 Occurrences starting 09/18/2022 until 10/18/2023 [facility] Work Phone: Comment on above: 1 Occurrences starting 09/18/2022 until 10/18/2023 SURGICAL PATHOLOGY [facility] Work Phone: Comment on above: Release Upon Ordering for 1 Occurrences starting 12/25/2021, 1 completed Surgical pathology study [facility] Work Phone: Comment on above: Release Upon Ordering for 1 Occurrences starting 03/19/2023, 1 completed End: 03-10-2023 Urethral Catheter Removal Urethral Catheter Removal Procedures Routine Once for 1 Occurrences starting 03/10/2023 until 03/10/2023 [facility] Work Phone: Comment on above: Once for 1 Occurrences starting 03/10/19 until 03/10/2023 End: 07-03-2023 Urethral Catheter Removal Urethral Catheter Removal Procedures Routine Once for 1 Occurrences starting 07/03/2023 until 07/03/2023 [facility] Work Phone: Comment on above: Once for 1 Occurrences starting 07/03/19 until 07/03/2023 End: 12-04-2023 US ABD RIGHT UPPER QUADRANT US ABD RIGHT UPPER QUADRANT Radiology Routine Nausea RUQ pain History of cholecystectomy 1 Occurrences starting 11/04/2022 until 12/04/2023 [facility] Work Phone: Comment on above: 1 Occurrences starting 11/04/2022 until 12/04/2023 US ABD RIGHT UPPER QUADRANT US ABD RIGHT UPPER QUADRANT Radiology Routine Nausea RUQ pain History of cholecystectomy 11/04/2022 11:15 AM EDT [facility] Work Phone: End: 12-04-2023 XR KNEE GENERAL 4V AP BOTH/PA BOTH/LAT/MERC RIGHT XR KNEE GENERAL 4V AP BOTH/PA BOTH/LAT/MERC RIGHT Radiology Routine Right knee pain, unspecified chronicity 1 Occurrences starting 11/04/2022 until 12/04/2023 [facility] Work Phone: Comment on above: 1 Occurrences starting 11/04/2022 until 12/04/2023 [facility] ClinCritical access hospital ClinCritical access [facility] Immunizations Immunization Date Immunization Notes Care Provider Fa [facility] 11-12-2022 influenza, injectabl e, quadrivalent, preservative free Deacon Kat MD Work Phone: [facility] 11-12-2022 influenza virus vaccine, unspecified formulation Deacon Kat MD Work Phone: [facility] 11-16-2021 influenza virus vaccine, unspecified formulation [facility] Juwanmarshall [facility] 02-18-2021 SARS-CoV-2 (COVID-19 ) mRNA BNT-162b2 vax [facility] Comment on above: Result Comment: 2022: TPVALL 01-01-2021 influenza virus vaccine, unspecified formulation [facility] 01-01-2021 influenza, seasonal, injectable Kuldip Yousif MD Work Phone: [facility] 12-25-2020 influenza virus vaccine, unspecified formulation [facility] Aristidessamm [facility] 12-25-2020 influenza, injectabl e, quadrivalent, preservative free Kuldip Yousif MD Work Phone: [facility] 06-23-2020 COVID-19 Vaccine Woo - Documentation Purposes Only Shanna June Other [facility] Comment on above: Result Comment: 2022: TPVAL 11-28-2018 influenza, seasonal, injectable Shanna June Other [facility] 11-28-2018 influenza virus vaccine, unspecified formulation Agustin Gustafson [facility] 09-21-2016 tetanus toxoid, redu lauren diphtheria toxoid, and acellular pertussis vaccine, adsorbed Kuldip Yousif MD Work Phone: [facility] Payers Date Payer Category Payer Unknown [id number] 2023 Self-pay [id number] 2020 Private Health Insurance [id number]. [id number] 2020 Private Health Insurance [facility] UMR CHOICE PLUS [id number] 2020-Present [phone] [address] [address] [place] [address] O [id number]. 7.3.488580.315 2017 Unknown 2017 Unknown [employer] [place] [id number] 2017-Present [id number] 1.2.840.009669.1.13.172.2. 7.3.044741.315 1989 Unknown [id number] 2.16.840.1.791302.3.579.2. 594 1989 Unknown [id number] 2.16.840.1.047715.3.579.2. 594 1989 Unknown [id number] 2.16.840.1.809666.3.579.2. 593 1989 Unknown [id number] 2.16.840.1.261362.3.579.2. 593 1989 Unknown [id number] 2.16.840.1.975027.3.579.2. 593 1989 Unknown [id number] 2.16.840.1.560249.3.579.2. 593 1989 Unknown [id number] 2.16.840.1.643890.3.579.2. 593 1989 Unknown [id number] 2.16.840.1.457885.3.579.2. 593 1989 Unknown [id number] 2.16.840.1.380206.3.579.2. 593 1989 Unknown [id number] 2.16.840.1.160158.3.579.2. 593 1989 Unknown [id number] 2.16.840.1.502400.3.579.2. 593 1989 Unknown [id number] 2.16.840.1.586937.3.579.2. 593 1989 Unknown [id number] 2.16.840.1.481540.3.579.2. 593 1989 Unknown [id number] 2.16.840.1.825899.3.579.2. 593 1989 Unknown [id number] 2.16.840.1.016997.3.579.2. 173 1989 Unknown [id number] 2.16.840.1.615978.3.579.2. 173 1989 Unknown [id number] 2.16.840.1.221909.3.579.2. 173 1989 Unknown [id number] 2.16.840.1.739013.3.579.2. 983 1989 Unknown [id number] 2.16.840.1.039438.3.579.2. 196 1989 Unknown [id number] 2.16.840.1.874076.3.579.2. 182 1989 Unknown [id number] 2.16.840.1.160560.3.579.2. 182 1989 Unknown [id number] 2.16.840.1.771562.3.579.2. 1243 1989 Unknown [id number] 2.16.840.1.993652.3.579.2. 1245 1989 Unknown [id number] 2.16.840.1.105896.3.579.2. 1244 1989 Unknown [id number] 2.16.840.1.151450.3.579.2. 1244 1989 Unknown [id number] 2.16.840.1.687845.3.579.2. 4 1989 Unknown [id number] 2.16.840.1.485611.3.579.2. 1243 1989 Unknown [id number] 2.16.840.1.342447.3.579.2. 1243 1989 Unknown [id number] 2.16.840.1.331720.3.579.2. 1243 1989 Unknown [id number] 2.16.840.1.886668.3.579.2. 1243 1989 Unknown [id number] 2.16.840.1.763041.3.579.2. 1243 1989 Unknown [id number] 2.16.840.1.694813.3.579.2. 1243 1989 Unknown [id number] 2.840.1.809093.3.579.2. 1243 1989 Unknown [id number] 2.16840.1.678499.3.579.2. 1243 1989 Unknown [id number] 2.16840.1.414231.3.579.2. 1243 1989 Unknown [id number] 2.16.840.1.027320.3.579.2. 1243 1989 Unknown [id number] 2.16.840.1.942183.3.579.2. 1989 Unknown [id number] 2.16.840.1.103629.3.579.2. 1989 Unknown [id number] 2.16.840.1.988870.3.579.2. 1989 Unknown [id number] 2.16.840.1.703485.3.579.2. 1989 Unknown [id number] 2.16.840.1.133539.3.579.2. 1989 Unknown [id number] 2.16.840.1.270240.3.579.2 1989 Unknown [id number] 2.16.840.1.167451.3.579.2 1989 Unknown [id number] 2.16.840.1.086183.3.579.2 1989 Unknown [id number] 2.16.840.1.749758.3.579.2 1989 Unknown [id number] 2.16.840.1.660724.3.579.2 1989 Unknown [id number] 2.16.840.1.398764.3.579.2 1989 Unknown [id number] 2.16.840.1.244405.3.579. 1989 Unknown [id number] 2.16.840.1.047021.3.579. 1989 Unknown [id number] 2.16.840.1.138268.3.579.2 1989 Unknown [id number] 2.16.840.1.458563.3.579.2 1989 Unknown [id number] 2.16.840.1.982316.3.579.2 1989 Unknown [id number] 2.16.840.1.114296.3.579.2 1989 Unknown [id number] 2.16.840.1.380488.3.579.2 1989 Unknown [id number] 2.16.840.1.691600.3.579.2 1989 Unknown [id number] 2.16.840.1.145691.3.579.2 1989 Unknown [id number] 2.16.840.1.988869.3.579.2. 727 1989 Unknown [id number] 2.16.840.1.553239.3.579.2. 1989 Unknown [id number] 2.16.840.1.833045.3.579.2 1989 Unknown [id number] 2.16.840.1.469225.3.579.2 1989 Unknown [id number] 2.16.840.1.026996.3.579.2 1989 Unknown [id number] 2.16.840.1.085585.3.579.2 1989 Unknown [id number] 2.16.840.1.169475.3.579.2 1989 Unknown [id number] 2.16.840.1.804341.3.579.2 1989 Unknown [id number] 2.16.840.1.269622.3.579.2 1989 Unknown [id number] 2.16.840.1.436308.3.579.2 1989 Unknown [id number] 2.16.840.1.316276.3.579.2 1989 Unknown [id number] 2.16.840.1.365798.3.579.2 1989 Unknown [id number] 2.16.840.1.407391.3.579.2. 1258 1989 Unknown [id number] 2.16.840.1.462101.3.579.2. 1258 1989 Unknown [id number] 2.16.840.1.637205.3.579.21258 1989 Unknown [id number] 2.16.840.1.613527.3.579.2. 1259 1959 Unknown [id number] 1.2.840.879820.1.13.239.2. 7.3.461629.315 1959 Unknown [id number] Unknown [id number] 2.16.840.1.051188.3.579.2. 531 Unknown [id number] 2.16.840.1.241236.3.579.2. 531 Unknown [id number] 2.16.840.1.314373.3.579.2. 531 Unknown [id number] 2.16.840.1.170999.3.579.2. 531 Unknown [id number] 2.16.840.1.434393.3.579.2. 531 Unknown [id number] 2.16.840.1.654761.3.579.2. 531 Unknown [id number] 2.16.840.1.067644.3.579.2. 531 Social History Date Type Detail Facility Start: 01-30-2020 End: 01-28-2022 Tobacco smoking status NHIS Never smoker [facility] Start: 01-30-2020 End: 01-28-2022 Tobacco use and exposure Never used [facility] Start: 01-30-2020 End: 11-02-2022 Alcohol intake Current non-drinker of alcohol (finding) [facility] Start: 1990 Sex Assigned At Not on file A [facility] Start: 06-08-2021 End: 06-29-2023 Exposure to SARS-CoV-2 (event) Not sure [facility] Start: 05-06-2021 End: 09-18-2023 Alcohol intake Ex-drinker (finding) [facility] Start: 10-16-2019 End: 06-20-2022 History SDOH Financial 5 [facility] Start: 10-16-2019 End: 06-20-2022 History SDOH Food Worry 1 [facility] Start: 10-16-2019 End: 06-20-2022 History SDOH Transport Med 2 [facility] Start: 10-15-2019 Education 18 [facility] Start: 06-17-2022 End: 09-18-2022 Sex Assigned At [facility] Start: 10-04-2021 End: 01-01-2022 Exposure to SARS-CoV-2 (event) Unable to assess [facility] Tobacco [facility] status [facility] Start: 06-17-2022 End: 09-18-2022 History of [...] to any clubs or organizations such as scientologist groups, unions, fraternal or athletic groups, or [...] Gender identity Identifies as female gender (finding) [facility] How hard is it for y ou to pay for the very basics like food, housing, medical care, and heating Hard [facility] (I/We) worried wheth er (my/our) food would run out before (I/we) got money to buy more. Sometimes true [facility] Start: 1990 Sex Assigned At Female F [facility] How hard is it for y ou to pay for the very basics like food, housing, medical care, and heating Not very hard [facility] Work Phone: Start: 03-02-2023 Sexual orientation Heterosexual (graham rosado) [facility] Work Phone: Tobacco [facility] Comment on above: denies Tobacco smoking status No Smokin g Status Entered [facility] Do you feel stress - tense, restless, nervous, or anxious, or unable to sleep at night because your mind is troubled all the time - these days [OSQ] Rather much [facility] Work Phone: NEGATED: Highlighted row [facility] Medical Equipment Procedure Code Equipment Code Equipment Origin al Text Equipment Identifier Dates Fibertak Hip Yoanna f [employer] [place] 1.8mm [id number] Start: 07-10-2021 Fibertak Hip Yoanna f [employer] [place] 1.8mm [id number] Start: 07-10-2021 Fibertak Hip Yoanna f [employer] [place] 1.8mm [id number] Start: 07-10-2021 Fibertak Hip Yoanna f [employer] [place] 1.8mm [id number] Start: 07-10-2021 Membrane, Sepraf ilm, 5 X 6 In - [id number] Start: 03-05-2023 One touch Verio strips for One Touch Verio meter; test 4 times a day [id number] Start: 01-16-2019 End: 03-10-2023 Functional Status Date Assessment Result Facility 07-17-2023 Functional status Patient at Baseline [facility] Work Phone: 05-17-2023 Functional Status N/A [facility] 05-12-2023 Functional Status No [facility] 05-12-2023 Functional Status [facility] 05-11-2023 Functional Status N/A [facility] 05-09-2023 Functional Status N/A [facility] 05-06-2023 Functional Status N/A [facility] 04-02-2023 Functional Status N/A [facility] 03-16-2023 Functional Status N/A [facility] 03-15-2023 Functional Status N/A [facility] 12-31-2022 Functional Status N/A [facility] 10-20-2022 Functional Status N/A [facility] 10-19-2022 Functional Status N/A [facility] 07-29-2022 Functional Status N/A [facility] 06-10-2022 Functional Status N/A [facility] Mental Status Date Assessment Result Facility 07-17-2023 Cognitive function Cognitive Sta tus Patient at Baseline [facility] Work Phone: Clinical Notes 07-09-2019 to 09-20-2023 Deacon Kat MD - 09/20/2023 3:20 PM Veronika Andres MD - 09/08/2023 10:40 AM Marisabel Martinez [facility] - 08/31/2023 3:13 PM Carlee Cobb LPN - 08/26/2023 4:24 PM EDT Note Date & Type Note Facility 09-20-2023 History of Presen t illness Narrative VIRTUAL VISIT PROGRESS NOTE This is a virtual visit using [employer] Z[employer] Video Visit. It required patient-provider interaction for the medical decision making as documented below. I have communicated my name and active licensure. The patient's identity and physical location were verified at the time of this visit. Either the patient or their legal retail customer service representative has been informed of the risks and benefits of -- and alternatives to -- treatment through a remote evaluation and consents to proceed with the evaluation remotely. Abbey Garcia is a 33 year old female seen for new imaing finding of small bowel swirl on CT. Since then she has had some more CT that did not show that but did show a small bowel intusseption (likely transient) HISTORY REVIEWED (electronic chart updated): PAST MEDICAL HISTORY No date: Anemia Comment: Takes Pro FE daily. No date: Arthritis No date: Asthma 09/25/2019: Chronic nausea 09/25/2019: Class 1 obesity without serious comorbidity with body mass index (BMI) of 33.0 to 33.9 in adult 2014: Gastric ulcer No date: GERD (gastroesophageal reflux disease) No date: History of IBS No date: Hypertension No date: Hypothyroid No date: RICHAR on CPAP Comment: wears mask every night No date: PCOS (polycystic ovarian syndrome) 01/29/2022: PONV (postoperative nausea and vomiting) No date: Ventral hernia without obstruction or gangrene PAST SURGICAL HISTORY 08/2019: APPENDECTOMY 08/2022: ARTHROSCOPY, SHOULDER, SURGI; Right Comment: SLAP REPAIR and Subacromial Decompression No date: CHOLECYSTECTOMY No date: COLONOSCOPY GEN ANES No date: EGD No date: F TOTAL ABDOMINAL HYSTERECTOMY No date: PAST SURGICAL HISTORY OF; Bilateral Comment: arthroscopic knee surgery- was catcher in college 08/2020: PAST SURGICAL HISTORY OF Comment: gastric sleeve 12/24/2020: PICC LINE INSERT/CONSULT Comment: 03/05/2023: UNLISTED PROCEDURE, ABDOMEN, MUSCULOSKELE; N/A Comment: Median arcuate ligament release by LAPAROTOMY No date: VAGINAL DELIVERY AFTER DELIVERY Comment: Three C-sections No date: VAGINAL HYSTERECTOMY FAMILY HISTORY Problem Relation Age of Onset Diabetes Mother Hypertension Mother Obesity Mother Hypertension Father Hypertension Brother Obesity Brother Hypertension Brother Obesity Brother Social History Tobacco Use Smoking status: Never Smokeless tobacco: Never Substance Use Topics Alcohol use: Not Currently Drug use: Never Comment: denies tx for drug/alcohol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 Approximately 15 minutes were spent with the patient doing therapy. Pablo Lebron PsyD documented [facility] Nurse Note* Rosanna Blanco [facility] - 07/06/2023 1:55 PM EDT Post Void Residual done on patient with 8 cc residual volume remaining. MD notified. ALLISON Schreiber [facility]05-21-2024 Nurse Note* Rosanna Blanco [facility] - 07/06/2023 1:55 PM EDT Post Void Residual done on patient with 8 cc residual volume remaining. MD notified. ALLISON Schreiber documented in this encounterOhio[facility] History of Present illness Narrative* Francisco J Steve MD - 07/06/2023 1:40 PM EDT [facility] RECONSTRUCTIVE SURGERY PATIENT HISTORY AND PHYSICAL EXAM PATIENT INFO: Abbey Garcia is a 33 year old female. REFERRING M.D.: Marcos Moreno [address] [place] [address] [place] [id number] Moreno for an [...] having recent UTI, that was treated at [facility] (although no records seen of this) and that she required a long catheter for two weeks due to high amounts in her bladder. No recent dysuria or hematuria. Does endorse some left flank pain. History of three C-sections, no vaginal deliveries QUESTIONNAIRE: Questionnaire: [facility] Ambulatory Visit Intake Questionnaire Question Answer Have [...] you will be given? No Questionnaire: f [facility] Additional Demo Question Answer Is this visit related to an accident, other than Workers' Compensation? No Is this visit related to Workers' Compensation? No Do you need an financial systems administrator? No Questionnaire: [facility] Female Pelvic Medicine Base Question Answer [...] provider understand my health Strongly Agree Questionnaire: [facility] [place]/Image Upload Question Answer Photo ID If [...] (Non-Steroidal Anti-Inflammatory Drug) PHYSICAL EXAM: VITAL SIGNS: [facility] PHYSICAL EXAM General: Patient in [...] for her OAB, and instructed her to meat pickler and use whicheveris cheapest at the pharmacy. [...] - Moderate documented [facility] Note* Tory Mcmullen RN - 07/03/2023 2:27 PM EDT Reviewed discharge with patient, all questions answered, aware of appointments ride downstairs. Pegfeedings stopped and flushed prior to clamping. Patient TPN stopped PICC flushed patient to leave with PICC [facility]05-18-[facility]24 Nurse Note* Tory Mcmullen RN - [...] lumen picc, per patient was placed at [facility] about a month ago for TPN [...] reach. documented in this [facility] Work Phone: [phone]) 270-324705-18-2024 Nurse Note* Tory Mcmullen RN - 07/03/2023 2:11 PM EDT Long removed per orders, discharge prepared at this time. [facility] Work Phone: 1(428) 133-282305-18-2024 History of Present illness Narrative* Dolores Cox MD - 07/03/2023 12:22 PM EDT Abbey Garcia is a 33 y.o. female on day 3 of admission presenting with Epigastric pain. Subjective She presented to the hospital with abdominal pain. She had previously undergone laparoscopic sleeve gastrectomy, on 09/03/2020 at the [facility]. She has a gastrojejunostomy tube. [...] medication and antiemetic. [facility]. Dolores Cox MD * Fadumo Edge RDN, SALVADOR - 07/02/2023 2:23 PM EDT Nutrition Progress Note messaged me for tube feed recommendations. Pt is now receiving tube feed and TPN. Nutrition Interventions and Recommendations: Nutrition Prescription: Individualized Nutrition Prescription Provided for : 2932-8593 kcals, 59-71 gm protein via parentaland enteral [...] home. Patient was active with RN from [facility] prior to admission. Patient would like to continue with their services post discharge. External referral already placed and sent to [facility]. [facility] will need to be notified via CarePort at the time of discharge. Will follow. 07/02/23 1049 Discharge Planning Home or Post Acute Services In home services Type of Home Care Services Home nursing visits Patient expects to be discharged to: Home with [facility] Does the patient need discharge transport [...] line position verification COMPARISON: 03/17/2023 ACCESSION NUMBER(S): [id number] ORDERING CLINICIAN: DOLORES COX TECHNIQUE: Single AP view chest FINDINGS: Cardiomediastinal silhouette is within normal limits. Right-sided PICC line identified with tip in the region of the mid SVC. No infiltrate or effusion is identified. Visualized osseous structures unremarkable. Impression: 1. Right PICC line placement with tip in the mid SVC. Signed by: Dotty Salcido 07/01/2023 1:46 PM Dictation workstation: [id number] Vascular US mesenteric artery duplex complete [facility] [id number] [place], [place] [id number] Vascular Lab Report VASC US MESENTERIC ARTERY DUPLEX COMPLETE Patient Name: ABBEY GARCIA Reading Physician: [id number] Sherry Magaña MD Study Date: 06/30/2023 Ordering Provider: [id number] JAMIL AGVIN MRN/PID: [id number] Fellow: Technologist: Leia Degroot RVT Date of /Age: 2 1990 / 33 years Technologist 2: Gender: F Admission Status: Inpatient Location Performed: [facility] 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 Report Amended Report Amended By: [id number] Magaña MD Date and Time: 06/30/2023 at [...] PSV 89 cm/s KEELY PSV 105 cm/s [id number] [place] [id number] Sherry Magaña MD Electronically Amended 06/30/2023, 12:15 PM [...] patient follow up with Dr. Morel at [facility] for intestinal rehab Start trickle TF today Continue TPN Stop tramadol, switch to percocet as patient has been on this in the past Continue IV morphine for breakthrough pain Zofran PRN Asthma Stable, not in exacerbation HTN Stable Hypothyroidism Continue home synthroid GERD Continue PPI Dispo: if patient is tolerating TF and symptoms are improved tomorrow, will plan to discharge home with [facility]. Kina Ann MD * Shelley Nash APRN-REAL ESTATE AGENT - 07/01/2023 2:37 PM EDT Abbey Garcia [...] renal failure superimposed on chronic kidney disease ([facility]) Hypokalemia Heart failure (Multi) 07/01/23 No surgical interventions planned. Pain management. Will need parenteral feeds as pt unableto tolerate JT feedings. Continue antiemetics, pain management. To follow up with her GI rehab program as previously recommended at [facility]. GS will sign off. I spent 15 minutes in the professional and overall care of this patient. JAMA Greenberg * Zoey Blanco RN - 07/01/2023 12:50 PM EDT Patient not medically clear. TCC met with patient to discuss discharge plans. Patient active with [facility] and would like to continue with RN only. External referral already placed andclinicals sent to agency through [facility]. They have accepted patient. Will follow. 07/01/23 1250 Discharge Planning Home or Post Acute Services In home services Type of Home Care Services Home nursing visits Patient expects to be discharged to: Home with [facility] Does the patient need discharge transport arranged? No Patient Choice Provider Choice list and [facility] website (https://medicare.gov/care-compare#search) for post-acute Quality and Resource [...] 75 mL/hr, Last Rate: 75 mL/hr (07/01/23 2234) PRN medications PRN medications: acetaminophen OR acetaminophen, albuterol, alteplase, dextrose, dextrose, glucagon, glucagon, hydrOXYzine HCL, ondansetron, sodium chloride 0.9%, traMADol Vascular US mesenteric artery duplex complete Result Date: 07/01/2023 [place] [id number] Vascular Lab Report [facility] US MESENTERIC ARTERY DUPLEX COMPLETE Patient Name: ABBEY GARCIA Reading Physician: Brandy Magaña MD Study Date: 06/30/2023 Ordering Provider: [id number] JAMIL GAVIN MRN/PID: [id number] Fellow: Technologist: Leia Degroot RVT Date of /Age: 2 1990 / 33 years Technologist 2: Gender: F Admission Status: Inpatient Location Performed: [facility] 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 COMPARISON: 03/16/2023 ACCESSION NUMBER(S): [id number] ORDERING CLINICIAN: DAVID VALADEZ TECHNIQUE: Axial CT [...] Fly West 06/29/2023 11:53 PM Dictation workstation: [id number] CT abdomen pelvis w IV contrast Result [...] Trace ascites, also present on previous exams Curator Herbarium: JUANCARLOS Transcribe Date/Time: Jun 18 2023 3:00P Dictated by : KYLE HERNANDEZ MD This examination was interpreted and the report reviewed and electronically signed by: KYLE HERNANDEZ MD on Jun 18 2023 3:30PM EST CT abdomen pelvis w IV contrast Result Date: 06/06/2023 * * *Final Report* * * DATE OF EXAM: Jun 06 2023 5:47PM [facility] 0530 - CT ABD/PEL W IVCON [...] PROCESS. NO SIGNIFICANT INTERVAL CHANGE SINCE 12/06/2022. Curator Herbarium: PSCB Transcribe Date/Time: Jun 06 2023 7:08P [...] vascular cause. Recommend following up with the [facility] for intestinal rehab as recommended [...] laparoscopic sleeve gastrectomy, on 09/03/2020 at the [facility]. She has a gastrojejunostomy tube. [...] RN - 06/30/2023 4:41 PM EDT 06/30/23 2685 Physical Activity On average, how many days [...] relatives? Twice How often do you attend scientologist or mandaeism services? More than 4 Do you belong to any clubs or organizations such as scientologist groups, unions, fraternal or athletic groups, or [...] In the past 12 months has the [employer], gas, oil, or water [employer] threatened to shut off services in your [...] laparoscopic sleeve gastrectomy, on 09/03/2020 at the [facility]. She had a gastrojejunostomy tube. [...] for Epigastric pain. Pharmacy reviewed the patient's oqqmi-in-ucqjxpujz medications and allergies for accuracy. Medications ADDED: Methocarbamol 750 mg TID Medications CHANGED: Buspirone 10 mg Mirtazapine 30 mg Miralax Topiramate 100 mg Medications REMOVED: Diazepam 5 mg Percocet 5 mg/325 mg The list below reflects the updated CONCESSION CASHIER list. Comments regarding how patient may be [...] Low Nausea/vomiting Pharmacy has been updated to [facility]. Sources used to complete the med history include patient interview, CONCESSION CASHIER list, dispense history Below are additional concerns with the patient's CONCESSION CASHIER list. -Pt is no longer taking diazepam or Percocet -Added methocarbamol 750 mg TID -Buspirone, mirtazapine, Miralax and topiramate doses have changed Mariela Tesfaye PharmD Please reach out via [employer] Secure Chat for questions * Sherry Magaña [...] Dr. Deacon Kat, her general surgeon at [facility]. The plan from them is a referralto [facility] intestinal rehabilitation. Patient to follow up with Dr. Kats office. 06/30/23 at 8:28 AM - Sherry Magaña MD Addendum: There is conclusively no vascular etiology for patient's current pain syndrome. Needs to be referred ultimately to Dr. Deacon Kat and Intestinal Rehab unit at [facility] after stabilization. Duplex shows no compression of celiac axis or internal lesions. There is no stenosis of the celiac axis or SMA. CTA reviewed. No vascular compression documented in this [facility] Work Phone: 1(972) 339-448705-18-2024 Plan of care note* Care Plan - [...] monitored and maintained or improved [facility]come: [facility] Work Phone: [phone]) 411-309105-18-2024 Miscellaneous Notes* Care Plan - Tory Mcmullen [...] no hearing aids. Her PCP is in [facility]; and she uses [facility] [address] in [facility]. She has a hx of gastric bypass, c/o abd pain. No anticipated discharge needs. DISCHARGE PLAN: HOME WITH [facility] Work Phone: [phone]) 625-987305-18-2024 Nurse Note* Tory Mcmullen RN - 07/03/2023 8:16 AM EDT Assumed care of patient at this time, patient is resting in bed with brake in place and call light in reach denies any needs [facility] Work Phone: [phone] Nurse Note* Grecia Schaffer RN - 07/03/2023 6:49 AM EDT Chg bath performed by this nurse. Gown and linens changed. Pt ambulated to the bathroom, pt reportsliquid dark, black stool ( not witnessed by nurse). [facility]05-17-2024 Plan of care note* Care [...] did make progress toward the following goals. [facility] Work Phone: 1([phone]) 412-685205-17-2024 Nurse Note* Yue Ferris RN - 07/02/2023 12:00 PM EDT Upon rounding right upper arm dual lumen PICC with current CHG dressing dry and intact. One port inuse, one with brisk blood return and flushes easily, clamped and Curos cap intact. [facility]05-16-2024 Plan of care note* Care [...] monitored and maintained or improved Outcome: Progressing [facility]05-16-2024 Nurse Note* Edilia Darby RN - 07/01/2023 1:56 PM EDT CXR from today verifies picc tip in mid SVC. [facility]05-16-2024 Nurse Note* Edilia Darby RN - 07/01/2023 12:48 PM EDT Patient with Rt arm dual lumen picc, per patient was placed at [facility] about a month ago for TPN [...] tip placement is needed. RN to message [facility] Work Phone: [phone] Consult note* Fadumo Edge RDN, SALVADOR - [...] renal failure superimposed on chronic kidney disease ([facility]) 06/29/2023 Anxiety Arthritis Asthma ([facility]) CPAP (continuous positive airway pressure) dependence Depression Disease of thyroid gland Dizziness GERD (gastroesophageal reflux disease) Hypothyroidism Irritable bowel syndrome with constipation Median arcuate ligament syndrome ([facility]) PCOS (polycystic ovarian syndrome) PONV (postoperative [...] Energy Needs Total Energy Estimated Needs (kCal): (7061-8872) Total Estimated Energy Need per Day (kCal/kg): (25-30) Method for Estimating Needs: ABW Estimated Protein Needs Total Protein Estimated Needs (g): (59-71) Total Protein Estimated Needs (g/kg): (1-1.2) Method for Estimating Needs: ABW Estimated Fluid Needs Total Fluid Estimated Needs (mL): (3794-9511) Method for Estimating Needs: 1 mL/kcal Nutrition Diagnosis Nutrition Diagnosis: Nutrition Diagnosis Patient has Nutrition Diagnosis: Yes Diagnosis Status (1): New Nutrition Diagnosis 1: Altered GI function Related to (1): physiological causes As Evidenced by (1): need for TPN, cannot tolerate PO/ tube feed Nutrition Interventions/Recommendations Nutrition Interventions and Recommendations: Nutrition Prescription: Individualized Nutrition Prescription Provided for : 2221-2246 kcals, 59-71 gm protein via parentalnutrition Nutrition [...] Needed?: 3-5 days Follow up Comment: 07/05/23 [facility] Work Phone: [phone] Consult note* Fadumo Edge RDN, LD - [...] renal failure superimposed on chronic kidney disease ([facility]) 06/29/2023 Anxiety Arthritis Asthma ([facility]) CPAP (continuous positive airway pressure) dependence Depression Disease of thyroid gland Dizziness GERD (gastroesophageal reflux disease) Hypothyroidism Irritable bowel syndrome with constipation Median arcuate ligament syndrome ([facility]) PCOS (polycystic ovarian syndrome) PONV (postoperative [...] 75 mL/hr, Last Rate: 75 mL/hr (07/01/23 221) Dietary Orders (From admission, onward) Start Ordered 06/30/231747 May Participate in Room Service Once Question: . Answer: Yes 06/30/23174706/30/23226 NPO Diet Except: Sips with meds; Effective now Diet effective now Question: Except: Answer: Sips with meds 06/30/23 0230 Nutrition Support Intake provides: 1420 kcals, 100 gm protein, 2000 mL total volume Estimated Needs: Estimated Energy Needs Total Energy Estimated Needs (kCal): (2532-4316) Total Estimated Energy Need per Day (kCal/kg): (25-30) Method for Estimating Needs: ABW Estimated Protein Needs Total Protein Estimated Needs (g): (59-71) Total Protein Estimated Needs (g/kg): (1-1.2) Method for Estimating Needs: ABW Estimated Fluid Needs Total Fluid Estimated Needs (mL): (8437-6245) Method for Estimating Needs: 1 mL/kcal Nutrition Diagnosis Nutrition Diagnosis: Nutrition Diagnosis Patient has Nutrition Diagnosis: Yes Diagnosis Status (1): New Nutrition Diagnosis 1: Altered GI function Related to (1): physiological causes As Evidenced by (1): need for TPN, cannot tolerate PO/ tube feed Nutrition Interventions/Recommendations Nutrition Interventions and Recommendations: Nutrition Prescription: Individualized Nutrition Prescription Provided for : 6828-6794 kcals, 59-71 gm protein via parentalnutrition Nutrition [...] for which she follows a surgeon at [facility]. They have been trying to [...] renal failure superimposed on chronic kidney disease ([facility]) (06/29/2023), Anxiety, Arthritis, Asthma ([facility]), CPAP (continuous positive airway pressure) dependence, Depression, Disease of thyroid gland, Dizziness, GERD (gastroesophageal reflux disease), H ypothyroidism, Irritable bowel syndrome, Median arcuate ligament syndrome ([facility]), PCOS (polycystic ovarian syndrome), PONV (postoperative nausea and vomiting), PUD (peptic ulcer disease), and Shortness of breath. She has no past medical history of Autoimmune disorder (Multi), Bipolar disorder (Multi), BPH (benign prostatic hyperplasia), Cerebral aneurysm ([facility]), Cervical cancer (Multi), Cervical disc disease, Chronic kidney disease, CKD (chronic kidney disease), Cognitive decline, Crohn's disease (Multi), Dementia (Multi), Dysphagia, Endometrial cancer (Multi), Esophageal cancer (Multi), Esophageal disease, ESRD (end stage renal disease) (Multi), Fibromyalgia, primary, Fractures, Gastric cancer (Multi), Gender dysphoria, GI (gastrointestinal bleed), Hemodialysis status ([facility]), Hernia, internal, H istory of peritoneal dialysis, HIV disease (Multi), Immunocompromised (Multi), Liver disease, Lumbar disc disease, Mastocytosis, MS (multiple sclerosis) (Multi), Muscular dystrophy (Multi), Myasthenia gravis (Multi), Neuromuscular disorder (Multi), Ovarian cancer (Multi), Pancreatitis ([facility]), Peptic ulcer disease, Prematurity ([facility]), PTSD (post-traumatic stress disorder), Schizophrenia ([facility]), Seizure disorder ([facility]), Spinal stenosis, Substance addiction ([facility]), Syncope, TIA (transientischemic attack), Ulcerative colitis ([facility]), Urinary tract infection, Uterine cancer ([facility]), or Vertigo. Surgical History She has a [...] Yellow, Dark-Yellow Appearance, Urine Clear Clear Specific [place], Urine 1.023 1.005 - 1.035 pH, Urine [...] Audie Gutierrez 06/30/2023 12:06 PM Dictation workstation: [id number] Vascular US mesenteric artery duplex complete Result Date: 06/30/2023 [place] [address] Preliminary Vascular Lab Report [facility] US MESENTERIC ARTERY DUPLEX COMPLETE Patient Name: ABBEY Oneil Physician: [id number] Sherry Magaña MD Study Date: 06/30/2023 Ordering Provider: [id number] JAMIL GAVIN MRN/PID: [id number] Fellow: Technologist: Leia Degroot RVT Date of : 1990 Technologist 2: Gender: F Admission Status: Inpatient Location Performed: [facility] 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 COMPARISON: 03/16/2023 ACCESSION NUMBER(S): [id number] ORDERING CLINICIAN: DAVID VALADEZ TECHNIQUE: Axial CT [...] Fly West 06/29/2023 11:53 PM Dictation workstation: [id number] Assessment/Plan Abdominal pain FTT 33-year-old female with complicated history after gastric bypass surgery. She has been working witha surgeon at [facility] to advance her tube feeds and oral intake and decrease the TPN, however this has been unsuccessful. She was evaluated by Dr. Magaña here and there is no evidence of celiac or SMA stenosis or compression. There is an intestinal rehabilitation program through [facility] and recommend follow-up with that program. [...] nausea aftera gastric bypass surgery done at [facility] in which she has been hospitalized [...] 14 06/30/2023 CREATININE 0.60 06/30/2023 * Tiffanie Mendez, SLIM-REAL ESTATE AGENT - 06/30/2023 8:31 AM EDTAssociated Order(s): IP CONSULT TO VASCULAR SURGERY Reason for Consult Mid epigastric abdominal pain History Of Present Illness This is a 33-year-old female with past medical history of chronic abdominal pain, PCOS, PUD, depression, GERD, IBS, obesity (status post laparoscopic sleeve gastrectomy in August [address] Ku wdiVqjz-hi-O gastric bypass 01/29/[address] Kat) and median arcuate ligament syndrome who presented to the emergency department for further evaluation of mid epigastric abdominal pain and nausea. P damon follows with GI and general surgery with the [facility] and is currently on TPN [...] also spoke with her general surgeon at [facility] where patient was advised for referral to [facility] intestinal rehabilitation. Past Medical History Past Medical History: Diagnosis Date Acute renal failure superimposed on chronic kidney disease ([facility]) 06/29/2023 Anxiety Arthritis Asthma ([facility]) CPAP (continuous positive airway pressure) dependence Depression Dizziness GERD (gastroesophageal reflux disease) Hypothyroidism Irritable bowel syndrome with constipation Median arcuate ligament syndrome ([facility]) PCOS (polycystic ovarian syndrome) PONV (postoperative nausea [...] Insecurity: No Food Insecurity (06/07/2023) [facility] Hunger Vital Sign Worried About Running Out of Food in the Last Year: Never true Ran Out of Food in the Last Year: Never true Transportation Needs: No Transportation Needs (06/07/2023) Received from [facility] PRAPARE - Transportation Lack of Transportation (Medical): No Lack of Transportation (Non-Medical): No Physical Activity: Insufficiently Active (10/28/2022) Received from [facility] Exercise Vital Sign Days of Exercise per Week: 4 days Minutes of Exercise per Session: 30 min Stress: Stress Concern Present (10/28/2022) Received from [facility] [employer] - Occupational Stress Questionnaire Feeling of Stress : To some extent Social Connections: Socially Integrated (10/28/2022) Received from [facility] Social Connection and Isolation Panel [NHANES] Frequency of Communication with Friends and Family: More than three times a week Frequency of Social Gatherings with Friends and Family: Once a week Attends [employer] Services: 1 to 4 times per year Active Member of Clubs or Organizations: Yes Attends Club or Organization Meetings: More than 4 times per year Marital Status: Intimate Partner Violence: Not on file Housing Stability: Low Risk (06/07/2023) Received from [facility] Housing Stability Vital Sign Unable to [...] Yellow, Dark-Yellow Appearance, Urine Clear Clear Specific [place], Urine 1.023 1.005 - 1.035 pH, Urine [...] INDICATION: Signs/Symptoms:Abdominal pain. COMPARISON: 03/16/2023 ACCESSION NUMBER(S): [id number] ORDERING CLINICIAN: DAVID VALADEZ TECHNIQUE: Axial CT [...] Fly West 06/29/2023 11:53 PM Dictation workstation: [id number] Physical exam Constitutional: Alert and oriented to [...] for episodes of hypoglycemia [facility] Work Phone: 1(948) 744-815205-16-2024 Nurse Note* Mayda Balbuena LPN - 07/01/2023 2:30 AM EDT Pt alert and oriented, long intact, clear yellow urine , medicated twice for left epigastric pain with somewhat effect, TPN running at 83ml/hr, tolerating well, no sign of adverse reaction, pt remain NPO , sips with meds, pt in no acute distress, all safety measures in place, call light within reach. [facility]05-15-2024 Plan of care note* Care Plan - Mayda Balbuena LPN - 06/30/2023 10:12 PM EDT The patient's goals for the shift include feel better The clinical goals for the shift include pain control [facility] Work Phone: 1(510) 833-419205-15-2024 Consult note* Tomasa Ortiz MD - 06/30/2023 [...] for which she follows a surgeon at [facility]. They have been trying to [...] renal failure superimposed on chronic kidney disease ([facility]) (06/29/2023), Anxiety, Arthritis, Asthma ([facility]), CPAP (continuous positive airway pressure) dependence, Depression, Disease of thyroid gland, Dizziness, GERD (gastroesophageal reflux disease), H ypothyroidism, Irritable bowel syndrome, Median arcuate ligament syndrome (CMS- HCC), PCOS (polycystic ovarian syndrome), PONV (postoperative nausea and vomiting), PUD (peptic ulcer disease), and Shortness of breath. She has no past medical history of Autoimmune disorder (Multi), Bipolar disorder (Multi), BPH (benign prostatic hyperplasia), Cerebral aneurysm ([facility]), Cervical cancer (Multi), Cervical disc disease, Chronic kidney disease, CKD (chronic kidney disease), Cognitive decline, Crohn's disease (Multi), Dementia (Multi), Dysphagia, Endometrial cancer (Multi), Esophageal cancer (Multi), Esophageal disease, ESRD (end stage renal disease) (Multi), Fibromyalgia, primary, Fractures, Gastric cancer (Multi), Gender dysphoria, GI (gastrointestinal bleed), Hemodialysis status ([facility]), Hernia, internal, H istory of peritoneal dialysis, HIV disease (Multi), Immunocompromised (Multi), Liver disease, Lumbar disc disease, Mastocytosis, MS (multiple sclerosis) (Multi), Muscular dystrophy (Multi), Myasthenia gravis (Multi), Neuromuscular disorder (Multi), Ovarian cancer (Multi), Pancreatitis ([facility]), Peptic ulcer disease, Prematurity ([facility]), PTSD (post-traumatic stress disorder), Schizophrenia (Multi), Seizure [...] Yellow, Dark-Yellow Appearance, Urine Clear Clear Specific [place], Urine 1.023 1.005 - 1.035 pH, Urine [...] Audie Gutierrez 06/30/2023 12:06 PM Dictation workstation: [id number] Vascular US mesenteric artery duplex complete Result Date: 06/30/2023 [place] [address] Preliminary Vascular Lab Report [facility] US MESENTERIC ARTERY DUPLEX COMPLETE Patient Name: ABBEY Lesli GARCIA Reading Physician: [id number] Sherry Magaña MD Study Date: 06/30/2023 Ordering Provider: [id number] JAMIL GAVIN MRN/PID: [id number] Fellow: Technologist: Leia Degroot RVT Date of : 1990 Technologist 2: Gender: F Admission Status: Inpatient Location Performed: [facility] 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 COMPARISON: 03/16/2023 ACCESSION NUMBER(S): [id number] ORDERING CLINICIAN: DAVID VALADEZ TECHNIQUE: Axial CT [...] Fly [place] 06/29/2023 11:53 PM Dictation workstation: [id number] Assessment/Plan Abdominal pain FTT 33-year-old female with complicated history after gastric bypass surgery. She has been working witha surgeon at [facility] to advance her tube feeds and oral intake and decrease the TPN, however this has been unsuccessful. She was evaluated by Dr. Magaña here and there is no evidence of celiac or SMA stenosis or compression. There is an intestinal rehabilitation program through [facility] and recommend follow-up with that program. Cont TPN for nutrition and PO/tube feeds as tolerated in the meantime Tomasa Ortiz MD [facility] Work Phone: 1([phone]) 180-135605-15-2024 Plan of care note* Care Plan - [...] no hearing aids. Her PCP is in [facility]; and she uses [facility] [address] in [facility]. She has a hx of gastric bypass, c/o abd pain. No anticipated discharge needs. DISCHARGE PLAN: HOME WITH [facility] Work Phone: [phone]) 452-680205-15-2024 Consult note* Lizzy Bentley APRN-REAL ESTATE AGENT - 06/30/2023 11:27 AM EDTAssociated Order(s): Inpatient consult to Acute Care Surgery Assessment/Plan Inpatient consult to Acute Care Surgery Consult performed by: Lizzy Bentley APRN-REAL ESTATE AGENT Consult ordered by: Baldomero Woodard MD Reason [...] nausea aftera gastric bypass surgery done at [facility] in which she has been hospitalized [...] 06/30/2023 BUN 14 06/30/2023 CREATININE 0.60 06/30/2023 [facility] Work Phone: [phone]) [phone] Consult note* JAMA Judd - 06/30/2023 8:31 AM EDTAssociated Order(s): IP CONSULT TO VASCULAR SURGERY Reason for Consult Mid epigastric abdominal pain History Of Present Illness This is a 33-year-old female with past medical history of chronic abdominal pain, PCOS, PUD, depression, GERD, IBS, obesity (status post laparoscopic sleeve gastrectomy in August [address] Ku vyfYusi-dy-Y gastric bypass 01/29/[address] Kat) and median arcuate ligament syndrome who presented to the emergency department for further evaluation of mid epigastric abdominal pain and nausea. Leonel jose follows with GI and general surgery with the [facility] and is currently on TPN [...] also spoke with her general surgeon at [facility] where patient was advised for referral to [facility] intestinal rehabilitation. Past Medical History Past Medical History: Diagnosis Date Acute renal failure superimposed on chronic kidney disease ([facility]) 06/29/2023 Anxiety Arthritis Asthma ([facility]) CPAP (continuous positive airway pressure) dependence Depression Dizziness GERD (gastroesophageal reflux disease) Hypothyroidism Irritable bowel syndrome with constipation Median arcuate ligament syndrome ([facility]) PCOS (polycystic ovarian syndrome) PONV (postoperative [...] Insecurity: No Food Insecurity (06/07/2023) Received from [facility] Hunger Vital Sign Worried About Running Out of Food in the Last Year: Never true Ran Out of Food in the Last Year: Never true Transportation Needs: No Transportation Needs (06/07/2023) Received from [facility] PRAPARE - Transportation Lack of Transportation (Medical): No Lack of Transportation (Non-Medical): No Physical Activity: Insufficiently Active (10/28/2022) Received from [facility] Exercise Vital Sign Days of Exercise per Week: 4 days Minutes of Exercise per Session: 30 min Stress: Stress Concern Present (10/28/2022) Received from [facility] [employer] - Occupational Stress Questionnaire Feeling of Stress : To some extent Social Connections: Socially Integrated (10/28/2022) Received from [facility] Social Connection and Isolation Panel [NHANES] Frequency of Communication with Friends and Family: More than three times a week Frequency of Social Gatherings with Friends and Family: Once a week Attends Temple Services: 1 to 4 times per year Active Member of Clubs or Organizations: Yes Attends Club or Organization Meetings: More than 4 times per year Marital Status: Intimate Partner Violence: Not on file Housing Stability: Low Risk (06/07/2023) Received from [facility] Housing Stability Vital Sign Unable to [...] Yellow, Dark-Yellow Appearance, Urine Clear Clear Specific [place], Urine 1.023 1.005 - 1.035 pH, Urine [...] INDICATION: Signs/Symptoms:Abdominal pain. COMPARISON: 03/16/2023 ACCESSION NUMBER(S): [id number] ORDERING CLINICIAN: DAVID VALADEZ TECHNIQUE: Axial CT [...] [place] 06/29/2023 11:53 PM Dictation workstation: [id number] Physical exam Constitutional: Alert and oriented to [...] Needs further workup for episodes of hypoglycemia [facility] Work Phone: [phone]) 556-105405-15-2024 Emergency department Note* Carla Alejo LPN - 06/30/2023 6:43 AM EDT Patient in gown at this time no c/o pain or discomfort no needs made known at this time Patient sleeping, chest rises and falls at equal intervals and patient takes breaths. Responds verbaly to calling of name and acknowledges this nurses presence in room Carla Alejo LPN 06/30/23 0645 [facility]05-15-2024 Emergency department Note* Carla Alejo LPN [...] Alejo LPN 06/29/232057 * David Dykes Rory, DO - 06/29/2023 5:37 PM EDT HPI [...] orchills. No chest pain. No other complaints. [place] Coma Scale Score: 15 Patient History Past Medical History: Diagnosis Date Acute renal failure superimposed on chronic kidney disease ([facility]) 06/29/2023 Anxiety Arthritis Asthma ([facility]) CPAP (continuous positive airway pressure) dependence Depression Dizziness GERD (gastroesophageal reflux disease) Hypothyroidism Irritable bowel syndrome with constipation Median arcuate ligament syndrome ([facility]) PCOS (polycystic ovarian syndrome) PONV (postoperative [...] interpretation: Sinus rhythm 59 bpm normal axis SC interval 140 QTc 453 no ectopy or [...] Alejo LPN 06/29/23 2312 documented in [facility] encounterOhio [facility] Work Phone: 1([phone]) 757-990005-15-2024 Emergency department Note* Carla Alejo LPN - 06/30/2023 5:48 AM EDT Patient vitals taken, labs drawn and sent and patient medicated for pain , vitals taken and charted, no c/o discomfort or other needs at this time Carla Alejo LPN 06/30/23 0549 [facility] Work Phone: 1(484) [phone] History and physical note* Baldomero Woodard MD - 06/30/2023 2:40 AM EDT History Of Present Illness Abbey Garcia is a 33 y.o. female presenting with 2-year history of abdominal pain and nausea after a gastric bypass surgery done at [facility] she has been hospitalized multiple times for this. She has a combination gastric tube jejunostomy tube which is supposed to be used for tube feeds she is on TPN. She has a surgeon at [facility] but she also sees Dr. Magaña [...] Name Age of Onset Diabetes Mother Jessicagrace Jeterino Hypertension Mother Jessica Artino Cancer Maternal [...] get her nausea under control with Reglan [id number]-rua-[id number] will consult general surgery to help with this complicated acute on chronic situation will order subcu heparin IV Protonix will make sure her gastric tube in her J- tube gets flushed. 3 times a day will order most of her home meds the way she takes them at home either by mouth or for through the J-tube. Baldomero Woodard MD [facility] Work Phone: [phone]) [phone] History and physical note* Baldomero Woodard MD - 06/30/2023 2:40 AM EDT History Of Present Illness Abbey Garcia is a 33 y.o. female presenting with 2-year history of abdominal pain and nausea after a gastric bypass surgery done at [facility] she has been hospitalized multiple times for this. She has a combination gastric tube jejunostomy tube which is supposed to be used for tube feeds she is on TPN. She has a surgeon at [facility] but she also sees Dr. Magaña [...] Name Age of Onset Diabetes Mother Jessicagrace Jeterino Hypertension Mother Jessicagrace Jeterino Cancer Maternal Grandfather [...] get her nausea under control with Reglan zjlsj-kcc-qtvrx will consult general surgery to help with this complicated acute on chronic situation will order subcu heparin IV Protonix will make sure her gastric tube in her J- tube gets flushed. 3 times a day will order most of her home meds the way she takes them at home either by mouth or for through the J-tube. Baldomero Woodard MD documented in this encounterOhio [facility] Hospital Work Phone: 1(758) 529-101205-14-2024 Emergency department Note* Carla Alejo LPN - 06/29/2023 8:57 PM EDT Assumed care of patient , labs drawn originally while tpn was attached and running , blood glucose redone via fingerstick with result of 117 and cbc/bmp reordered STAT , drawn and sent to lab Carla Alejo LPN 06/29/232057 [facility] Work Phone: [phone]) 340-252005-14-2024 Emergency department Note* Carla Alejo LPN - 06/29/2023 5:37 PM EDT medications held at this time per ED physician verbal order Carla Alejo LPN 06/29/232 [facility] Work Phone: [phone]) [phone] Physician Emergency department Note* David Valadez DO [...] orchills. No chest pain. No other complaints. [place] Coma Scale Score: 15 Patient History Past Medical History: Diagnosis Date Acute renal failure superimposed on chronic kidney disease ([facility]) 06/29/2023 Anxiety Arthritis Asthma ([facility]) CPAP (continuous positive airway pressure) dependence Depression Dizziness GERD (gastroesophageal reflux disease) Hypothyroidism Irritable bowel syndrome with constipation Median arcuate ligament syndrome ([facility]) PCOS (polycystic ovarian syndrome) PONV (postoperative [...] interpretation: Sinus rhythm 59 bpm normal axis SC interval 140 QTc 453 no ectopy or [...] admission. Procedure Procedures David Valadez DO 06/30/23243 [facility] Work Phone: 1([phone]) 386-403105-07-2024 History of Present illness Narrative* Sherry Magaña MD - 06/22/2023 11:45 AM EDT Patient and I had a video conference as she was at home in [place] and I was at the [facility] vascular center. She reports doing poorly with [...] conference was 10 minutes documented in this [facility] Work Phone: 1(556) 597-402305-03-2024 Note [id number]#1.00TIF[facility] History of Present illness Narrative* Breanna Stern, SLIM.REAL ESTATE AGENT - 06/18/2023 10:00 AM EDT Assessment Postoperative [...] jejunojejunostomy defect. PEG-J feeding tube placed. Readmit -06/08 for abdominal pain r/t tube feeds. Presented today for follow up. -Pt is in obvious distress, discomfort having severe/sharp abdominal pain, hypoglycemia and nausea Pt taken to ER for evaluation D/W Dr Kat Follow up with Dr Jacquelyn Stern APRN.REAL ESTATE AGENT documented in this encounterOhio[facility]05-[facility]-2024 NoteUniversity Hospitals [facility]05-03-2024 Nurse Note* Yaneth Mitchell MA - 06/18/2023 9:35 AM EDT What is the reason for your visit today? Post op PEG-J placement Who is your referring physician? Are you having poor oral intake? YES Have you had unintentional weight loss of 15 lbs/7 Kg in the last 3-6 months? NO Bowels: diarrhea Wound: Temperature: No Drains: No [facility]05-03-2024 Nurse Note* Yaneth Mitchell MA - 06/18/2023 9:35 AM EDT What is the reason for your visit today? Post op PEG-J placement Who is your referring physician? Are you having poor oral intake? YES Have you had unintentional weight loss of 15 lbs/7 Kg in the last 3-6 months? NO Bowels: diarrhea Wound: Temperature: No Drains: No documented in this encounterOhiohealth O'[facility]05-02-2024 Telephone encounter Note * Telephone Encounter [...] with scheduling provider for ketamine refill appt. [facility]05-02-2024 Miscellaneous Notes* Telephone Encounter - Clarence [...] for ketamine refill appt. documented in this encounterOhiohealth O'[facility]05-02-2024 Telephone encounter Note * Telephone Encounter - Serena Neff - 06/17/2023 11:40 AM EDT Phoned Malka back with Dr. Kat's response. He will not be managing patient's TPN. Malka advised that she arranged for hospitalist to manage. Serena Neff RN BSN Hand Stripper for Dr. Kat [facility]05-02-2024 Miscellaneous Notes* Telephone Encounter - Serena Neff - 06/17/2023 11:40 AM EDT Phoned Malka back with Dr. Kat's response. He will not be managing patient's TPN. Malka advised that she arranged for hospitalist to manage. Serena Neff RN BSN Hand Stripper for Dr. Kat * Telephone Encounter - Dorita Manning - 06/15/2023 3:20 PM EDT Malka from [facility] calling asking if Dr Kat will follow patient for TPN. Physician there is discharging patient on TPN. CB# [phone] ext [phone] documented in this encounterOhiohealth O'[facility]04-30-2024 Telephone encounter Note * Telephone Encounter - Dorita Manning - 06/15/2023 3:20 PM EDT Malka from [facility] calling asking if Dr Kat will follow patient for TPN. Physician there is discharging patient on TPN. # [phone] ext [phone] [facility]04-30-2024 [id number]#1.00TIFJania [facility]04-29-2024 Telephone encounter Note* Telephone Encounter - Stephanie Sumner DO - 06/14/2023 4:39 PM EDT Hospital Medicine Transfer Received page for transfer request from [facility] to [place]: Abbey Garcia is 33 year old female who presented with nausea, vomiting and worsening LUQ pain. Pt has complicated gastric surgery history and is currently doing TF via PEG for nutrition. Per [facility] pt is HDS and electrolytes are stable. Pt is requesting transfer to because that is where her care team is and states she only went to [facility] because they have short wait times. ED team gave IVF and IV pain meds which improved LUQ pain somewhat. Pts notified Dr Kat that she was going to ED. Reason for transfer: continuity of care Accepted to hospital medicine service at [place] Stephanie Sumner DO 4:39 PM [facility] Work Phone: [phone]) 610-848404-29-2024 Miscellaneous Notes* Telephone Encounter - Stephanie Sumner DO - 06/14/2023 4:39 PM EDT Hospital Medicine Transfer Received page for transfer request from [facility] to [place]: Abbey Garcia is 33 year old female who presented with nausea, vomiting and worsening LUQ pain. Pt has complicated gastric surgery history and is currently doing TF via PEG for nutrition. Per [facility] pt is HDS and electrolytes are stable. Pt is requesting transfer to because that is where her care team is and states she only went to [facility] because they have short wait times. ED team gave IVF and IV pain meds which improved LUQ pain somewhat. Pts notified Dr Kat that she was going to ED. Reason for transfer: continuity of care Accepted to hospital medicine service at [place] Stephanie Sumner DO 4:39 PM documented in this encounterOhiohealth O'[facility]len[facility]04-29-2024 Telephone encounter Note * Telephone Encounter - Serena Neff - 06/14/2023 3:31 PM EDT Phoned patient and to discuss ED admission today. Pt is being transferred from [facility] to [facility]. Patient complaining of worsening left sided [...] at this time. Serena Neff RN BSN Hand Stripper for Dr. Kat [facility]04-29-2024 Miscellaneous Notes* Telephone Encounter - Serena Neff - 06/14/2023 3:31 PM EDT Phoned patient and to discuss ED admission today. Pt is being transferred from [facility] to [facility]. Patient complaining of worsening left sided [...] at this time. Serena Neff RN BSN Hand Stripper for Dr. Kat documented in this encounterOhiohealth O'[facility]len[facility]04-26-2024 Note [id number]#1.00Juan [facility] 06-09-2023 NoteHNO ID: [id number] Author: PABLO LEBRON PSYD Service: ? Author Type: Psychologist Type: Progress Notes Filed: 06/09/2023 09:52 Note Text: Assessment was conducted virtually. Patient is a resident of [place], and completed the assessment virtually in [place]. Psychologist is licensed and stationed in [place]. 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 Appreciative of supportive and [...] Focused Psychotherapy, Supportive Therapy PROGRESS TO DATE: Halfway Progress: Stable Short Term Condition: Stable GOALS/OBJECTIVES/INTERVENTIONS: To identify and implement tools for effectively managing symptoms of anxiety, stress, and low mood. Approximately 45 minutes were spent with the patient doing therapy. Pablo Lebron [facility] History of Present illness Narrative* Pablo Lebron, [facility] - 06/09/2023 8:59 AM EDT Assessment was conducted virtually. Patient is a resident of [place], and completed the assessment virtually in [place]. Psychologist is licensed and stationed in [place]. 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 Appreciative of supportive and [...] Focused Psychotherapy, Supportive Therapy PROGRESS TO DATE: Nurse Licensed Practical Progress: Stable Short Term Condition: Stable GOALS/OBJECTIVES/INTERVENTIONS: To identify and implement tools for effectively managing symptoms of anxiety, stress, and low mood. Approximately 45 minutes were spent with the patient doing therapy. Pablo Lebron PsyD documented in this encounterOhiohealth O'[facility]len[facility]04-23-2024 [facility] 06-07-2023 [facility] CenterMvchiumu73-10-8586 NoteUniversity Hospitals [facility]huja [facility]04-16-2024 NoteUniversity Hospitals Ahuja [facility] Center04-16-2024 History of Present illness Narrative* Vic Ramos MD - 06/01/2023 4:28 PM EDT TELEMEDICINE VISIT Modified Protocol for treatment of other conditions supportive of goal to minimize vulnerable patient exposure to Covid-19 [facility] of Emergency Consented for encounter Patient verified by name and Abbey Garcia [id number] 1990 Patient consents to virtual visit Patient located at home Dr. Ramos located at [facility] office SUBJECTIVE: The patient presents to [facility] Pain Management Department for pain in [...] which included preparing to see the patient, otqo-tk-lxbv patient care, completing clinical documentation, obtaining and/or [...] MD June 01, 2023 documented in this encounterOhiohealth O'[facility]len[facility]04-15-2024 Note [id number] [facility] 05-30-2023 Miscellaneous Notes* Telephone Encounter - Deacon Kat MD - 05/30/2023 10:16 AM EDT Significant constipation - no bm since Wednesday, a lot of rectal pressure. Tried her linzess, miralax. Recommended enema OTC + dulcolax suppository. Contact me if not improved. Deacon Kat MD documented in this encounterOhiohealth O'Blen[facility] Hospital04-12-2024 Miscellaneous Notes* Telephone Encounter - Nabila Jackson RPh - 05/28/2023 5:48 PM EDT ERx for Nutren sent to [facility] today. These orders are unable to be processed here, but may be eligible to fill using [facility] [place]. Please review and if appropriate, send forward for processing. Thank you! [facility] [phone] documented in this encounterOhiohealth O'Blen[facility]04-12-2024 [facility] Miscellaneous Notes* Telephone Encounter - [...] Grecia Wallace documented in this encounterOhiohealth O'Bleness Hospital04-12-2024 [facility] 05-27-2023 NoteHNO ID: [id number] Author: EH KIMBALL, RN Service: Nursing Author Type: Registered Nurse Type: Nursing Progress Note Filed: 05/27/2023 09:20 Note Text: Other: 0900 Pt verbalizes interest about bolus feeding. Director Alumni Relations made aware. [facility] HospitalHejaauqz72-12-8111 NoteLemuel Shattuck HospitalTldsgene51-38-8150 NoteLemuel Shattuck HospitalCwyselbs36-47-1280 NoteAd[place] [address]-08-2024 Note [id number] Regional Medical Center 05-22-2023 NoteLemuel Shattuck HospitalBbirgqnt54-76-5165 NoteLemuel Shattuck HospitalTxesrjqw56-68-2281 Note [facility] HospitalSvkmpxae61-86-6251 NoteLemuel Shattuck HospitalMfrwknoi31-72-2736 Telephone encounter Note* Telephone Encounter - Itzel Hurley RN - 05/18/2023 9:25 AM EDT Images from the original note were not included. EGD images; please review Modesto Reyna EGD Report 05/12/2023 [facility]04-02-2024 Miscellaneous Notes* Telephone Encounter - Itzel [...] Please review thank you! documented in this encounterOhiohealth O[facility] Telephone encounter Note * Telephone Encounter - Silvina Brown - 05/18/2023 9:20 AM EDT Received records from Modesto Reyna. EGD dated 05/12/2023 Discharge Summary 05/11 to 05/14/2023 Ct Abdomen/Pelvis 05/11/2023 Please review thank you! [facility]04-01-2024 Hospital Discharge instructions Patient Education 05/17/2023 [...] at pharmacies and retail stores. Eat bland, hjkk-ck-kmcqfa foods in small amounts as you are [...] and water are not available, use hand mail order biller. Make sure that everyone in your household washes their hands frequently. Take ltxu-foz-ufjjmrb and prescription medicines only as told by [...] and water are not available, use hand mail order biller. Watch your condition for any changes and for signs of dehydration. Keep all follow-up visits. This is important. This information is not intended to replace advice given to you by your health care provider. Make sure you discuss any questions you have with your health care provider. Document Revised: 08/08/2021 Document Reviewed: 08/08/2021 AppTrigger Patient Education 2022 [employer]. Follow Up Care 05/17/2023 14:15:17 With:Jaquan Paula FAM, [facility] Address: When:05/20/2023 [facility]04-01-2024 History of Present illness Narrative* Deacon Kat MD - 05/17/2023 2:40 PM EDT VIRTUAL VISIT PROGRESS NOTE This is a virtual visit using SpaBookerom Video Visit. It required patient- provider interaction for the medical decision making as documented below. I have communicated my name and active licensure. The patient's identity and physical location wereverified at the time of this visit. Either the patient or their legal retail customer service representative has been informed of the [...] PM -------- ORIGINAL REPORT -------- Dictation workstation: [id number] Impression Postsurgical changes from gastric bypass. No evidence for obstruction.. MACRO: none Signed by: Corie Garza 03/17/2023 5:00 PM Dictation workstation: [id number] Narrative Interpreted By: Corie Garza, STUDY: FL UPPER GI W DOUBLE CONTRAST W SMALL BOWEL FOLLOW THROUGH; 03/17/2023 4:40 pm INDICATION: Signs/Symptoms:abdominal pain. COMPARISON: None. ACCESSION NUMBER(S): [id number] ORDERING CLINICIAN: TIFFANIE MENDEZ TECHNIQUE: Multiple fluoroscopic spot images were obtained during a single contrast upper GI with KUB. Total fluoroscopy time: 1 minute 32 seconds Radiation exposure (Reference Air Kerma): 99.36 mGy Images: 2 spot images 7 series and 2 delayed AP views of the abdomen FINDINGS: Comfort Station Attendant images demonstrate postsurgical changes from previous Tan-en-Y [...] Corie Garza 03/16/2023 5:46 PM Dictation workstation: [id number] Narrative Interpreted By: Corie Garza, STUDY: CT ABDOMEN PELVIS W IV CONTRAST; 03/16/2023 5:27 pm INDICATION: Signs/Symptoms:abdominal pain - with oral and IV contrast. COMPARISON: None.. ACCESSION NUMBER(S): [id number] ORDERING CLINICIAN: TIFFANIE MENDEZ TECHNIQUE: Oral contrast [...] ANTRUM BIOPSY SURGICAL PATHOLOGY EXAM Tomasa Keyes, RN 03/19/2023 1431 Pathology STOMACH ANTRUM, BIOPSY: [...] ER. Deacon Kat MD documented in this encounterOhiohealth O'[facility]04-01-2024 NoteUniversity [facility]04-[facility] Evaluation + Plan noteExtracted from: [...] Appointment Date:05/19/2023 10:40:00 AM Scheduled Provider:Jaquan Paula Location:[facility] Appointment Type: Hospital Follow Up w/TCM Appointment Date:07/13/2023 08:20:00 AM Scheduled Provider:OLGA GATICA PA-C Location:[facility] [place] Appointment Type:URO Office Visit Appointment Date:08/04/2023 09:45:00 AM Scheduled Provider:Rajni Rouse MD Location:[facility] [place] Appointment Type:URO Office Visit Diagnostic Tests Pending * Drug Screen Urine 05/17/23 Future Scheduled Tests Radiology* US Renal 06/10/22 [facility]03-29-2024 Evaluation + Plan noteExtracted from: Title:Discharge Note [...] When Contact Information Cristhian REDDING, Jaquan Johnson, [facility], MED Additional Instructions: Follow up with surgeon Additional Instructions: Appointment has already been scheduled Cannabinoid Hyperemesis Syndrome Nausea and Vomiting, Adult, Grxd-mz-Bawh Extracted from: Title:Progress Note * Author:Miguel JOHNSON, Rosalia Smith Date:05/14/23 Impression and Plan This is a 33-year-old lady with past medical history of gastric sleeve surgery in July 2020, complicated by significant reflux switch to Tan-en-Y January 2022 at [facility], [facility] surgery February 2023 which reported [...] Orders Sbsq Hospital Care/Day Moderate 35 Minutes 51495 2. Intractable abdominal pain (R10.9: Unspecified abdominal [...] Bentyl, Carafate, PPI twice daily Ordered: [facility] Hospital Care/Day Moderate 35 Minutes 42651 2. Intractable abdominal pain (R10.9: Unspecified abdominal [...] reflux switch to Tan-en-Y January 2022 at [facility], [facility] surgery February 2023 which reported helped [...] reflux switch to Tan-en-Y January 2022 at [facility], [facility] surgery February 2023 which reported [...] 2022 Author:Kuldip Arcos Jr, DO Date:05/12/23 Plan [place] [employer] Anesthesiologists (ASA) physical status classification: [...] Ordered: Initial Hospital Care/Day Moderate [id number] in Status 2. Intractable abdominal pain [...] Appointment Date:05/19/2023 10:40:00 AM Scheduled Provider:Jaquan Paula Location:[facility] Appointment Type: Hospital Follow Up w/TCM Appointment Date:07/13/2023 08:20:00 AM Scheduled Provider:OLGA GATICA PA-C Location:[facility] [place] Appointment Type:URO Office Visit Appointment Date:08/04/2023 09:45:00 AM Scheduled Provider:Rajni Rouse MD Location:[facility] [place] Appointment Type:URO Office Visit Diagnostic Tests Pending * Copper Level 05/14/23 * HIV Screen 4th Generation wRfx 05/14/23 * Acute Hepatitis A B C Panel 05/14/23 Future Scheduled Tests Radiology* US Renal 06/10/22 [facility]03-29-2024 Hospital Discharge instructions Patient Education 05/14/2023 11:56:34 [...] as coffee and soda. Take and apply umab-tgo-vqxznmr and prescription medicines only as told by [...] provider. Document Revised: 06/01/2022 Document Reviewed: 06/01/2022 AppTrigger Patient Education 2022 [employer]. 05/14/2023 11:56:24 Nausea and Vomiting, Adult, Pbtp-ju-Gjgo Nausea and Vomiting, Adult Nausea is feeling [...] fruit juice). ?Low-calorie sports drinks. Eat bland, tjki-vk-rjbhxh foods in small amounts as you are able, such as: ?Bananas. ?Applesauce. ?Rice. ?Low-fat (lean) meats. ?Dedham. ?Crackers. Avoid drinking fluids that have a lot of sugar or caffeine in them. This includes energy drinks, sports drinks, and soda. Avoid alcohol. Avoid spicy or fatty foods. General instructions Take ymom-vcv-ovrfywc and prescription medicines only as told by your doctor. Drink enough fluid to keep your pee (urine) pale yellow. Wash your hands often with soap and water for at least 20 seconds. If you cannot use soap and water, use hand mail order biller. Make sure that everyone in your home [...] your doctor about eating and drinking. Take itzt-kpj-ujyvqjl and prescription medicines only as told by your doctor. Contact your doctor if your symptoms get worse or you have new symptoms. Keep all follow-up visits. This information is not intended to replace advice given to you by your health care provider. Make sure you discuss any questions you have with your health care provider. Document Revised: 08/08/2021 Document Reviewed: 08/08/2021 AppTrigger Patient Education 2022 [employer]. Follow Up Care 05/12/2023 09:23:09 With:Patient has [facility] in place Address:Unknown When: Unknown With:Jaquan Paula FAM, MED Address: [address] [place] [address] [facility] (1) When: Unknown With:Follow up with surgeon Address: When: Unknown Comments:Appointment has already been scheduled [facility]03-29-2024 [facility]Result Comment: Electronically Signed By: Moncho Trejo DO.br\Date and Time Signed: 05/14/23 12:06 [id number] [facility]:Result Comment: Electronically Signed By: Moncho Trejo DObr\Date and Time Signed: 05/12/23 12:59 [id number] Hospital Discharge instructions Patient Education 05/11/2023 16:46:23 Abdominal Pain, Adult, Wqxh-qa-Radw Abdominal Pain, Adult Many things can cause belly (abdominal) pain. Most times, belly pain is not dangerous. Many cases of belly pain can be watched and treated at home. Sometimes, though, belly pain is serious. Your doctor will try to find the cause of your belly pain. Follow these instructions at home: Medicines Take gtjt-pxa-vfrzahl and prescription medicines only as told by [...] your belly pain for any changes. Take uobw-mwt-fidnmgm and prescription medicines only as told by [...] provider. Document Revised: 06/12/2019 Document Reviewed: 06/12/2019 AppTrigger Patient Education 2022 [employer]. Follow Up Care 05/11/2023 11:48:15 With:Miguel JOHNSON, APRYL Bean, [facility] Address: [facility] [address], [address] [phone] When:2 to 4 days Comments:Call today to schedule your follow upReturn to ED if symptoms worsen [facility]03-26-2024 Evaluation + Plan noteExtracted from: Title:ED Note [...] Date:07/13/2023 08:20:00 AM Scheduled Provider:OLGA GATICA PA-C Location:[facility] [place] Appointment Type:URO Office Visit Appointment Date:08/04/2023 09:45:00 AM Scheduled Provider:Rajni Rouse MD Location:[facility] [place] Appointment Type:URO Office Visit Future Scheduled Tests Radiology* US Renal 06/10/22 [facility]03-25-2024 Miscellaneous Notes* Telephone Encounter - Serena Neff - 05/10/2023 2:51 PM EDT Patient scheduled with Dr. Kat on 05/11. Serena Neff HEALTH EDUCATION COORDINATOR Hand Stripper for Dr. Kat * Telephone Encounter - [...] by Dr. Kat. Serena Neff RN BSN Hand Stripper for Dr. Kat * Telephone Encounter - Dorita Manning - 05/10/2023 10:44 AM EDT Patients calling concerned about [place]. She has been in the ER 2 times in the last 4 days. She was told to speak to DR who originally put her on TPN to discuss getting back on it. CB# [phone] documented in this encounterOhiohealth O[facility]03-[facility]24 Hospital Discharge instructions Patient Education 05/09/2023 [...] Follow these instructions at home: Medicines Take nwns-aya-agispfg and prescription medicines only as told by [...] Watch your condition for any changes. Take utke-sfj-tjjwlgf and prescription medicines only as told by [...] provider. Document Revised: 03/22/2020 Document Reviewed: 06/12/2019 AppTrigger Patient Education 2022 [employer]. Follow Up Care 05/09/2023 11:38:04 With:Earnest Oakes Address: [facility] [employer], [facility] [address] [address] [phone] Business (1) When:05/12/2023 15:51:27 With:Jon Rivera Address: [facility] [employer], [facility] [address] [address]- [phone] Business (1) When:05/12/2023 15:51:00 With:Jaquan Morrow Address: [address] [place], [place] [phone] Business (1) When:05/12/2023 15:50:53 [facility]03-24-2024 Evaluation + Plan noteExtracted from: Title:ED Note [...] Date:07/13/2023 08:20:00 AM Scheduled Provider:OLGA GATICA PA-C Location:[facility] [place] Appointment Type:URO Office Visit Appointment Date:08/04/2023 09:45:00 AM Scheduled Provider:Rajni Rouse MD Location:[facility] [place] Appointment Type:URO Office Visit Future Scheduled Tests Radiology* US Renal 06/10/22 [facility]03-22-2024 Miscellaneous Notes* Telephone Encounter - Yvette Morgan - 05/07/2023 11:07 AM EDT Procedure canceled * Telephone Encounter - Santa Hart RN - 05/07/2023 10:47 AM EDT Patient is keeping 07/20/2023 Upper endoscopy appointment and wishes to cancel 05/14/2023 EGD appointment. Scheduling notified. documented in this encounterOhiohealth O'Bleness [facility]03-21-2024 Hospital Discharge instructions Patient Education 05/06/2023 [...] Follow these instructions at home: Medicines Take qxmj-uob-uizbzvw and prescription medicines only as told by [...] Watch your condition for any changes. Take vuwk-lrh-durdlix and prescription medicines only as told by [...] provider. Document Revised: 03/22/2020 Document Reviewed: 06/12/2019 AppTrigger Patient Education 2022 [employer]. Follow Up Care 05/06/2023 15:41:48 With:Follow-up with your surgeon at soon as possible, call the office tomorrow to schedule an appointment. Return to the ER with any new or worsening symptoms. Address:Unknown When: Unknown With:Jaquan Morrow Address:Unknown When:Within 3 Day(s) [facility]03-13-2024 History of Present illness Narrative* Kasie Avalos [...] race variable for the IDMS-Traceable creatinine methods. https://jasn.asnjournals.org/content/early//ASN.4408157448 Calcium 8.5 - 10.4 mg/dL 8.7 Albumin [...] the body of the stomach FINAL DIAGNOSIS [facility] LAB STOMACH ANTRUM, BIOPSY: Erosive chronic active [...] healthy appearing mucosa. This was traversed. The dnxvm-lg-fcgvunl limb was characterized by healthy appearing mucosa. [...] healthy appearing mucosa. This was traversed. The oxgcg-ay-poahrmu limb was characterized by healthy appearing mucosa. The jejunojejunal anastomosis was characterized by healthy appearing mucosa. The examined jejunum was normal. Impression: - Normal esophagus. - Tan-en-Y gastrojejunostomy with gastrojejunal anastomosis characterized by healthy appearing mucosa. No ulceration or stenosis. - Normal examined jejunum. - No specimens collected. Upper GI SERIES 03/17/23 FINDINGS: Comfort Station Attendant images demonstrate postsurgical changes from previous Tan-en-Y [...] destructive bone lesions. CT ABD/PEL 12/06/22 ABDOMEN: Comfort Station Attendant (topogram) images: No additional findings. Images of [...] which included preparing to see the patient, jdnu-mq-vycb patient care, completing clinical documentation, obtaining and/or reviewing separately obtained history, performing a medically appropriate examination, counseling and educating the pat ient/family/caregiver, and ordering medications, tests, or procedures. Kasie Avalos MD April 22, 2023 2:06 PM documented in this encounterOhiohealth O'[facility]03-13-2024 NoteUniversity Hospitals Ahuja [facility]02-21-2024 History of Present illness Narrative* [...] with her bariatric surgeon at [facility]. I will follow-up with her in 2 weeks by telephone. documented in this encounterOhio [facility] Work Phone: 1(295) 864-475602-21-2024 NoteUniversity Hospitals [facility]huja [facility]02-21-2024 History of Present illness Narrative* Deacon Kat MD - 04/07/2023 1:48 PM EST VIRTUAL VISIT PROGRESS NOTE This is a virtual visit using Hearsay.itt Zoom Video Visit. It required patient- provider interaction for the medical decision making as documented below. I have communicated my name and active licensure. The patient's identity and physical location wereverified at the time of this visit. Either the patient or their legal retail customer service representative has been informed of the [...] She had a recent EGD through the [facility] system which I was able to obtain [...] Low Deacon Kat MD documented in this encounterOhiohealth O'[facility]leness [facility]02-16-2024 Hospital Discharge instructions Patient Education 04/02/2023 [...] Follow these instructions at home: Medicines Take jcmn-vfd-dhuroma and prescription medicines only as told by [...] provider. Document Revised: 04/17/2021 Document Reviewed: 04/17/2021 AppTrigger Patient Education 2022 [employer]. 04/02/2023 17:02:34 Abdominal Pain, Adult Abdominal Pain, [...] Follow these instructions at home: Medicines Take myfa-ysf-xlegwil and prescription medicines only as told by [...] Watch your condition for any changes. Take kyum-fjy-evgfbfl and prescription medicines only as told by [...] provider. Document Revised: 03/22/2020 Document Reviewed: 06/12/2019 AppTrigger Patient Education 2022 [employer]. Follow Up Care 04/02/2023 10:53:50 With:Jon Rivera Address: [address] [place] [address], [address] [phone] Business (1) When:04/05/2023 16:23:56 Comments:Make sure to follow-up with your primary doctor and your surgeon. Follow-up with Dr. Rivera for the GI. Return to the emergency room if your pain gets worse or any new symptoms. With:Jaquan Morrow Address:Unknown When:Within 3 Day(s) [facility]02-16-2024 Evaluation + Plan noteExtracted from: Title:ED Note Author:Ashutosh Albright M.D. te:04/02/23 1. Chest pain (R07.9: Chest pain, unspecified) 2. Abdominal pain (R10.9: Unspecified abdominal pain) Orders: dicyclomine, 20 mg = 2 cap(s), Oral, QID, # 20 cap(s), Refills(s) 0, Pharmacy: [facility]/pharmacy #[id number], 167, cm, 04/02/23 11:01:00 EST, [...] nausea/vomiting, # 16 tab(s), Refills(s) 0, Pharmacy: [facility]/pharmacy #[id number], 167, cm, 04/02/23 11:01:00 EST, [...] day(s), # 560 mL, Refills(s) 0, Pharmacy: [facility]/pharmacy #[id number], 167, cm, 04/02/23 11:01:00 EST, [...] 09:45:00 AM Scheduled Provider:Nasim JOHNSON, Rajni Ballesteros Location:[facility] Appointment Type:URO Office Visit Future Scheduled Tests Radiology* US Renal 06/10/22 [facility]02-03-2024 Nurse Note* Stacie Blanco RN - 03/20/2023 4:41 PM EST Patient discharged home to care of self and . Patient transported to front entrance via wheelchair. No injuries, bleeding or distress noted. [facility]02-03-[facility] Nurse Note* Stacie Blanco RN - [...] - 03/18/2023 2:50 PM EST Ronnie foster, ship's pilot into see pt * Andie Lugo RN - 03/18/2023 7:27 AM EST Assumed care of pt, pt resting quietly in bed, ng to liws , will monitor * Cathy Madera RN - 03/17/2023 6:05 PM EST NG tube re inserted per order. Patient tolerated well. No complications. This nurse requested orderfor xray for placement of NG tube. Order received. Waiting on mining engineering technologist to verify placement per order. Will continue [...] per to re insert NG tube and materials management supervisor to low suction. Will re attempt with patients consent. * Cathy Madera RN - 03/17/2023 12:06 PM EST Patient transported to Xray for placement of NG. Patient off unit. * Cathy Madera RN - 03/17/2023 11:44 AM EST This nurse notified computed tomography technician that patient had NG tube placed and needed Xray for placement verification. This nurse messaged Rosa UYN to notify her that NG tube was placed and needed separate order for NG tube placement per computed tomography technician. Order received. Will continue to monitor [...] 5 MG IV. This nurse notified Lizz Brunson INVENTORY ADMINISTRATOR-BETH that patient received Valium 5 MG PO [...] to ensure patient safety. documented in this encounterOhio State East Hospital Work Phone: 1(421) 182-797002-03-2024 Nurse Note* Stacie Blanco RN - 03/20/2023 4:01 PM EST Provided/explained discharge instructions and summary. Provided opportunity for questions and discussion. No complaints or concerns communicated. [facility] Work Phone: 1(814) 610-897602-03-2024 History of Present illness Narrative* Nathalie Tyler RN - 03/20/2023 3:35 PM EST Patient is medically ready for discharge. Per previous career development counselor, plan for home with home health care. Message to provider that external home care referral is needed. UPDATE 1549: Discharging provider indicates no continued skilled needs for home care. Per bedside nurse May, patient is in agreement that she no longer needs home health care services. Referral to [facility] updated and closed. Patient will discharge no with no reported skilled needs. * Lizz Brunson, INVENTORY ADMINISTRATOR-REAL ESTATE AGENT - 03/20/2023 11:40 AM EST Abbey Garcia [...] Tomasa Keyes RN 03/19/2023 1431 Procedure Location [address] [id number] Referring Provider Generic Provider Singer No address on file Procedure Provider No [...] 03/17/2023 done at 2:05 p.m. ACCESSION NUMBER(S): [id number] ORDERING CLINICIAN: TIFFANIE MENDEZ TECHNIQUE: AP erect view of the chest FINDINGS: The nasogastric tube has not ch anged in placement with the tip seen within the proximal thoracic esophagus. Heart and mediastinum are normally visualized. Lungs are clear. Distal tip of nasogastric tube in proximal thoracic esophagus just above the aortic arch. Signed by: Nya Ahmadi 03/17/2023 8:19 PM Dictation workstation: [id number] FL upper GI w double contrast w small bowel follow through Result Date: 03/17/2023 Interpreted By: Corie Garza, STUDY: FL UPPER GI W DOUBLE CONTRAST W SMALL BOWEL FOLLOW THROUGH; 03/17/2023 4:40 pm INDICATION: Signs/Symptoms:abdominal pain. COMPARISON: None. ACCESSION NUMBER(S): [id number] ORDERING CLINICIAN: TIFFANIE MENDEZ TECHNIQUE: Multiple fluoroscopic spot images were obtained during a single contrast upper GI with KUB. Total fluoroscopy time: 1 minute 32 seconds Radiation exposure (Reference Air Kerma): 99.36 mGy Images: 2 spot images 7 series and 2 delayed AP viewsof the abdomen FINDINGS: Comfort Station Attendant images demonstrate postsurgical changes from previous Tan-en-Y [...] Corie Garza 03/17/2023 5:00 PM Dictation workstation: [id number] XR chest 1 view Result Date: 03/17/2023 Interpreted By: Corie Garza, STUDY: XR CHEST 1 VIEW; 03/17/2023 12:41 pm INDICATION: Signs/Symptoms:Status post NG tube placement. COMPARISON: None available ACCESSION NUMBER(S): [id number] ORDERING CLINICIAN: TIFFANIE MENDEZ FINDINGS: RESULT: Nasogastric [...] Corie Garza 03/17/2023 4:19 PM Dictation workstation: [id number] CT abdomen pelvis w IV contrast Result Date: 03/16/2023 Interpreted By: Corie Garza, STUDY: CT ABDOMEN PELVIS W IV CONTRAST; 03/16/2023 5:27 pm INDICATION: Signs/Symptoms:abdominal pain - with oral and IV contrast. COMPARISON: None.. ACCESSION NUMBER(S): [id number] ORDERING CLINICIAN: TIFFANIE MENDEZ TECHNIQUE: Oral contrast [...] Corie Garza 03/16/2023 5:46 PM Dictation workstation: [id number] XR chest 1 view Result Date: 03/06/2023 Interpreted By: Sara Zarate, STUDY: XR CHEST 1 VIEW; 03/06/2023 7:32 am INDICATION: Signs/Symptoms:post op COMPARISON: None ACCESSION NUMBER(S): [id number] ORDERING CLINICIAN: JASON FOSTER TECHNIQUE: Frontal and [...] Sara Zarate 03/06/2023 1:48 PM Dictation workstation: [id number] XR chest 1 view Result Date: 03/05/2023 Interpreted By: Baldomero Hendrickson, STUDY: XR CHEST 1 VIEW; 03/05/2023 3:11 pm INDICATION: CLINICAL INFORMATION: Signs/Symptoms:NG tube placement confirmation. COMPARISON: 03/05/2019 at 745 hours ACCESSION NUMBER(S): [id number] ORDERING CLINICIAN: DESMOND TIRADO TECHNIQUE: Portable chest [...] Baldomero Hendrickson 03/05/2023 3:31 PM Dictation workstation: [id number] XR chest 1 view Result Date: 03/05/2023 Interpreted By: Nya Ahmadi, STUDY: XR CHEST 1 VIEW 03/05/2023 7:51 am INDICATION: Signs/Symptoms:confirm line placement COMPARISON: None available. ACCESSION NUMBER(S): [id number] ORDERING CLINICIAN: SERENA GEORGE TECHNIQUE: AP erect view of the chest FINDINGS: Right arm PICC line terminates in the SVC. There is no pneumothorax. The heart, mediastinum, and lungs are normally visualized. Right arm PICC line terminating in SVC without pneumothorax. No acute cardiopulmonary disease. Signed by: Nya Ahmadi 03/05/2023 7:54 AM Dictation workstation: [id number] Assessment/Plan Principal Problem: Abdominal pain NV, Epigastric [...] Tomasa Keyes RN 03/19/2023 1431 Procedure Location [address] [address] Referring Provider Generic Provider Singer No address on file Procedure Provider No name on file XR chest 1 view Result Date: 03/17/2023 Interpreted By: Nya Ahmadi, STUDY: XR CHEST 1 VIEW 03/17/2023 7:09 pm INDICATION: Signs/Symptoms:S/p NG placement COMPARISON: 03/17/2023 done at 2:05 p.m. ACCESSION NUMBER(S): [id number] ORDERING CLINICIAN: TIFFANIE MENDEZ TECHNIQUE: AP erect view of the chest FINDINGS: The nasogastric tube has not ch anged in placement with the tip seen within the proximal thoracic esophagus. Heart and mediastinum are normally visualized. Lungs are clear. Distal tip of nasogastric tube in proximal thoracic esophagus just above the aortic arch. Signed by: Nya Ahmadi 03/17/2023 8:19 PM Dictation workstation: [id number] FL upper GI w double contrast w small bowel follow through Result Date: 03/17/2023 Interpreted By: Corie Garza, STUDY: FL UPPER GI W DOUBLE CONTRAST W SMALL BOWEL FOLLOW THROUGH; 03/17/2023 4:40 pm INDICATION: Signs/Symptoms:abdominal pain. COMPARISON: None. ACCESSION NUMBER(S): [id number] ORDERING CLINICIAN: TIFFANIE MENDEZ TECHNIQUE: Multiple fluoroscopic spot images were obtained during a single contrast upper GI with KUB. Total fluoroscopy time: 1 minute 32 seconds Radiation exposure (Reference Air Kerma): 99.36 mGy Images: 2 spot images 7 series and 2 delayed AP viewsof the abdomen FINDINGS: Comfort Station Attendant images demonstrate postsurgical changes from previous Tan-en-Y [...] Corie Garza 03/17/2023 5:00 PM Dictation workstation: [id number] XR chest 1 view Result Date: 03/17/2023 Interpreted By: Corie Garza, STUDY: XR CHEST 1 VIEW; 03/17/2023 12:41 pm INDICATION: Signs/Symptoms:Status post NG tube placement. COMPARISON: None available ACCESSION NUMBER(S): [id number] ORDERING CLINICIAN: TIFFANIE MENDEZ FINDINGS: RESULT: Nasogastric [...] Corie Garza 03/17/2023 4:19 PM Dictation workstation: [id number] CT abdomen pelvis w IV contrast Result Date: 03/16/2023 Interpreted By: Corie Garza, STUDY: CT ABDOMEN PELVIS W IV CONTRAST; 03/16/2023 5:27 pm INDICATION: Signs/Symptoms:abdominal pain - with oral and IV contrast. COMPARISON: None.. ACCESSION NUMBER(S): [id number] ORDERING CLINICIAN: TIFFANIE MENDEZ TECHNIQUE: Oral contrast [...] Corie Garza 03/16/2023 5:46 PM Dictation workstation: [id number] XR chest 1 view Result Date: 03/06/2023 Interpreted By: Sara Zarate, STUDY: XR CHEST 1 VIEW; 03/06/2023 7:32 am INDICATION: Signs/Symptoms:post op COMPARISON: None ACCESSION NUMBER(S): [id number] ORDERING CLINICIAN: JASON FOSTER TECHNIQUE: Frontal and [...] Sara Zarate 03/06/2023 1:48 PM Dictation workstation: [id number] XR chest 1 view Result Date: 03/05/2023 Interpreted By: Baldomero Hendrickson, STUDY: XR CHEST 1 VIEW; 03/05/2023 3:11 pm INDICATION: CLINICAL INFORMATION: Signs/Symptoms:NG tube placement confirmation. COMPARISON: 03/05/2019 at 745 hours ACCESSION NUMBER(S): [id number] ORDERING CLINICIAN: DESMOND TIRADO TECHNIQUE: Portable chest [...] Baldomero Hendrickson 03/05/2023 3:31 PM Dictation workstation: [id number] XR chest 1 view Result Date: 03/05/2023 Interpreted By: Nya Ahmadi, STUDY: XR CHEST 1 VIEW 03/05/2023 7:51 am INDICATION: Signs/Symptoms:confirm line placement COMPARISON: None available. ACCESSION NUMBER(S): [id number] ORDERING CLINICIAN: SERENA GEORGE TECHNIQUE: AP erect view of the chest FINDINGS: Right arm PICC line terminates in the SVC. There is no pneumothorax. The heart, mediastinum, and lungs are normally visualized. Right arm PICC line terminating in SVC without pneumothorax. No acute cardiopulmonary disease. Signed by: Nya Ahmadi 03/05/2023 7:54 AM Dictation workstation: [id number] Assessment/Plan -Abdominal pain/nausea -Median arcuate ligament syndrome, [...] MD - 03/19/2023 3:26 PM EST Abbey aGrcia is a 32 y.o. female on day [...] deferto her bariatric surgeon, Dr. Morel, at [place]. Will sign off. Kurt Matos MD * Anam Davila RN - 03/19/2023 3:11 PM EST Abbey Garcia is a 32 y.o. female on day 3 of admission presenting with Abdominal pain. Met with patient at bedside. Patient states she has been active with [facility] in [place] . Patient would like to continue HHC with [facility]. Referral was sent. EGD scheduled today. Has NG in place. [facility] is able to accept for STEF. NG discontinued. On clear liquids. WILL NEED AND EXTERNAL REFERRAL FOR RESUMPTION OF HHC. Anam Davila RN * JAMA Greenberg - 03/19/2023 12:32 PM EST Abbey Garcia [...] her usual [facility] surgeons after DC. 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 MVI, B12. I spent 15 minutes in [...] 03/17/2023 done at 2:05 p.m. ACCESSION NUMBER(S): [id number] ORDERING CLINICIAN: TIFFANIE MENDEZ TECHNIQUE: AP erect view of the chest FINDINGS: The nasogastric tube has not changed in placement with the tip seen within the proximal thoracic esophagus. Heart and mediastinum are normally visualized. Lungs are clear. Impression: Distal tip of nasogastric tube in proximal thoracic esophagus just above the aortic arch. Signed by: Nya Ahmadi 03/17/2023 8:19 PM Dictation workstation: [id number] FL upper GI w double contrast w small bowel follow through Narrative: Interpreted By: Corie Garza, STUDY: FL UPPER GI W DOUBLE CONTRAST W SMALL BOWEL FOLLOW THROUGH; 03/17/2023 4:40 pm INDICATION: Signs/Symptoms:abdominal pain. COMPARISON: None. ACCESSION NUMBER(S): [id number] ORDERING CLINICIAN: TIFFANIE MENDEZ TECHNIQUE: Multiple fluoroscopic spot images were obtained during a single contrast upper GI with KUB. Total fluoroscopy time: 1 minute 32 seconds Radiation exposure (Reference Air Kerma): 99.36 mGy Images: 2 spot images 7 series and 2 delayed AP views of the abdomen FINDINGS: Comfort Station Attendant images demonstrate postsurgical changes from previous Tan-en-Y [...] Corie Garza 03/17/2023 5:00 PM Dictation workstation: [id number] XR chest 1 view Narrative: Interpreted By: oCrie Garza, STUDY: XR CHEST 1 VIEW; 03/17/2023 12:41 pm INDICATION: Signs/Symptoms:Status post NG tube placement. COMPARISON: None available ACCESSION NUMBER(S): [id number] ORDERING CLINICIAN: TIFFANIE MENDEZ FINDINGS: RESULT: Nasogastric [...] Corie Garza 03/17/2023 4:19 PM Dictation workstation: [id number] Physical Exam Vitals and nursing note reviewed. [...] her usual [facility] surgeons after DC. 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 MVI, B12. I spent 15 minutes in the professional and overall care of this patient. Shelley Nash, SLIM-BETH * JAMA Lynn - 03/18/2023 3:11 PM [...] glasses. Pts PCP is Dr Marino with [facility], prescriptions filled through [facility] in [place]. Uncertain if pt will have dc needs. Her last admit she went home with [facility]. TCC to follow ongoing medical workup. Safe dc plan not secured-TCC to follow [facility] * Lizz Brunson, INVENTORY ADMINISTRATOR-REAL ESTATE AGENT - 03/18/2023 10:57 AM EST Abbey Garcia [...] 03/17/2023 done at 2:05 p.m. ACCESSION NUMBER(S): [id number] ORDERING CLINICIAN: TIFFANIE MENDEZ TECHNIQUE: AP erect view of the chest FINDINGS: The nasogastric tube has not changed in placement with the tip seen within the proximal thoracic esophagus. Heart and mediastinum are normally visualized. Lungs are clear. Impression: Distal tip of nasogastric tube in proximal thoracic esophagus just above the aortic arch. Signed by: Nya Ahmadi 03/17/2023 8:19 PM Dictation workstation: [id number] FL upper GI w double contrast w small bowel follow through Narrative: Interpreted By: Corie Garza, STUDY: FL UPPER GI W DOUBLE CONTRAST W SMALL BOWEL FOLLOW THROUGH; 03/17/2023 4:40 pm INDICATION: Signs/Symptoms:abdominal pain. COMPARISON: None. ACCESSION NUMBER(S): [id number] ORDERING CLINICIAN: TIFFANIE MENDEZ TECHNIQUE: Multiple fluoroscopic spot images were obtained during a single contrast upper GI with KUB. Total fluoroscopy time: 1 minute 32 seconds Radiation exposure (Reference Air Kerma): 99.36 mGy Images: 2 spot images 7 series and 2 delayed AP views of the abdomen FINDINGS: Comfort Station Attendant images demonstrate postsurgical changes from previous Tan-en-Y [...] Corie Garza 03/17/2023 5:00 PM Dictation workstation: [id number] XR chest 1 view Narrative: Interpreted By: Corie Garza, STUDY: XR CHEST 1 VIEW; 03/17/2023 12:41 pm INDICATION: Signs/Symptoms:Status post NG tube placement. COMPARISON: None available ACCESSION NUMBER(S): [id number] ORDERING CLINICIAN: TIFFANIE MENDEZ FINDINGS: RESULT: Nasogastric [...] Corie Garza 03/17/2023 4:19 PM Dictation workstation: [id number] Physical Exam Vitals and nursing note reviewed. [...] 03/17/2023 done at 2:05 p.m. ACCESSION NUMBER(S): [id number] ORDERING CLINICIAN: TIFFANIE MENDEZ TECHNIQUE: AP erect view of the chest FINDINGS: The nasogastric tube has not ch anged in placement with the tip seen within the proximal thoracic esophagus. Heart and mediastinum are normally visualized. Lungs are clear. Distal tip of nasogastric tube in proximal thoracic esophagus just above the aortic arch. Signed by: Nya Ahmadi 03/17/2023 8:19 PM Dictation workstation: [id number] FL upper GI w double contrast w small bowel follow through Result Date: 03/17/2023 Interpreted By: Corie Garza, STUDY: FL UPPER GI W DOUBLE CONTRAST W SMALL BOWEL FOLLOW THROUGH; 03/17/2023 4:40 pm INDICATION: Signs/Symptoms:abdominal pain. COMPARISON: None. ACCESSION NUMBER(S): [id number] ORDERING CLINICIAN: TIFFANIE MENDEZ TECHNIQUE: Multiple fluoroscopic spot images were obtained during a single contrast upper GI with KUB. Total fluoroscopy time: 1 minute 32 seconds Radiation exposure (Reference Air Kerma): 99.36 mGy Images: 2 spot images 7 series and 2 delayed AP viewsof the abdomen FINDINGS: Comfort Station Attendant images demonstrate postsurgical changes from previous Tan-en-Y [...] Corie Garza 03/17/2023 5:00 PM Dictation workstation: [id number] XR chest 1 view Result Date: 03/17/2023 Interpreted By: Corie Garza, STUDY: XR CHEST 1 VIEW; 03/17/2023 12:41 pm INDICATION: Signs/Symptoms:Status post NG tube placement. COMPARISON: None available ACCESSION NUMBER(S): [id number] ORDERING CLINICIAN: TIFFANIE MENDEZ FINDINGS: RESULT: Nasogastric [...] Corie Garza 03/17/2023 4:19 PM Dictation workstation: [id number] CT abdomen pelvis w IV contrast Result Date: 03/16/2023 Interpreted By: Corie Garza, STUDY: CT ABDOMEN PELVIS W IV CONTRAST; 03/16/2023 5:27 pm INDICATION: Signs/Symptoms:abdominal pain - with oral and IV contrast. COMPARISON: None.. ACCESSION NUMBER(S): [id number] ORDERING CLINICIAN: TIFFANIE MENDEZ TECHNIQUE: Oral contrast [...] Corie Garza 03/16/2023 5:46 PM Dictation workstation: [id number] Assessment/Plan Abdominal pain, nausea, chronic intolerance to [...] 03/17/2023 done at 2:05 p.m. ACCESSION NUMBER(S): [id number] ORDERING CLINICIAN: TIFFANIE MENDEZ TECHNIQUE: AP erect view of the chest FINDINGS: The nasogastric tube has not ch anged in placement with the tip seen within the proximal thoracic esophagus. Heart and mediastinum are normally visualized. Lungs are clear. Distal tip of nasogastric tube in proximal thoracic esophagus just above the aortic arch. Signed by: Nya Ahmadi 03/17/2023 8:19 PM Dictation workstation: [id number] FL upper GI w double contrast w small bowel follow through Result Date: 03/17/2023 Interpreted By: Corie Garza, STUDY: FL UPPER GI W DOUBLE CONTRAST W SMALL BOWEL FOLLOW THROUGH; 03/17/2023 4:40 pm INDICATION: Signs/Symptoms:abdominal pain. COMPARISON: None. ACCESSION NUMBER(S): [id number] ORDERING CLINICIAN: TIFFANIE MENDEZ TECHNIQUE: Multiple fluoroscopic spot images were obtained during a single contrast upper GI with KUB. Total fluoroscopy time: 1 minute 32 seconds Radiation exposure (Reference Air Kerma): 99.36 mGy Images: 2 spot images 7 series and 2 delayed AP viewsof the abdomen FINDINGS: Comfort Station Attendant images demonstrate postsurgical changes from previous Tan-en-Y [...] Corie Garza 03/17/2023 5:00 PM Dictation workstation: [id number] XR chest 1 view Result Date: 03/17/2023 Interpreted By: Corie Garza, STUDY: XR CHEST 1 VIEW; 03/17/2023 12:41 pm INDICATION: Signs/Symptoms:Status post NG tube placement. COMPARISON: None available ACCESSION NUMBER(S): [id number] ORDERING CLINICIAN: TIFFANIE MENDEZ FINDINGS: RESULT: Nasogastric [...] Corie Garza 03/17/2023 4:19 PM Dictation workstation: [id number] CT abdomen pelvis w IV contrast Result Date: 03/16/2023 Interpreted By: Corie Garza, STUDY: CT ABDOMEN PELVIS W IV CONTRAST; 03/16/2023 5:27 pm INDICATION: Signs/Symptoms:abdominal pain - with oral and IV contrast. COMPARISON: None.. ACCESSION NUMBER(S): [id number] ORDERING CLINICIAN: TIFFANIE MENDEZ TECHNIQUE: Oral contrast [...] Corie Garza 03/16/2023 5:46 PM Dictation workstation: [id number] XR chest 1 view Result Date: 03/06/2023 Interpreted By: Sara Zarate, STUDY: XR CHEST 1 VIEW; 03/06/2023 7:32 am INDICATION: Signs/Symptoms:post op COMPARISON: None ACCESSION NUMBER(S): [id number] ORDERING CLINICIAN: JASON FOSTER TECHNIQUE: Frontal and [...] Sara Zarate 03/06/2023 1:48 PM Dictation workstation: [id number] XR chest 1 view Result Date: 03/05/2023 Interpreted By: Baldomero Hendrickson, STUDY: XR CHEST 1 VIEW; 03/05/2023 3:11 pm INDICATION: CLINICAL INFORMATION: Signs/Symptoms:NG tube placement confirmation. COMPARISON: 03/05/2019 at 745 hours ACCESSION NUMBER(S): [id number] ORDERING CLINICIAN: DEMSOND TIRADO TECHNIQUE: Portable chest one view. FINDINGS: [...] Baldomero Hendrickson 03/05/2023 3:31 PM Dictation workstation: [id number] XR chest 1 view Result Date: 03/05/2023 Interpreted By: Nya Ahmadi, STUDY: XR CHEST 1 VIEW 03/05/2023 7:51 am INDICATION: Signs/Symptoms:confirm line placement COMPARISON: None available. ACCESSION NUMBER(S): [id number] ORDERING CLINICIAN: SERENA GEORGE TECHNIQUE: AP erect view of the chest FINDINGS: Right arm PICC line terminates in the SVC. There is no pneumothorax. The heart, mediastinum, and lungs are normally visualized. Right arm PICC line terminating in SVC without pneumothorax. No acute cardiopulmonary disease. Signed by: Nya Ahmadi 03/05/2023 7:54 AM Dictation workstation: [id number] Assessment/Plan Principal Problem: Abdominal pain NV, Epigastric [...] -Increase PPI to twice daily Deepika Roy APRN-REAL ESTATE AGENT Associated attestation - Yani Wong MD - [...] and IV contrast. COMPARISON: None.. ACCESSION NUMBER(S): [id number] ORDERING CLINICIAN: TIFFANIE MENDEZ TECHNIQUE: Oral contrast [...] Corie Garza 03/16/2023 5:46 PM Dictation workstation: [id number] Physical Exam Vitals and nursing note reviewed. [...] in her local emergency room out in [place]. She was discharged after her nausea was relieved last night but this nausea recurred and she was transferred here. I suspect given adequate pain control and control of her nausea that once the inflammation of her surgery resolves she will feel much better. Pancreatitis and bowel ischemia have been ruled out through lab testing and noncontrast CT done yesterday in [place]. I am going to get a CT scan with IV andoral contrast today and start IV fluids and antiemetics as well as analgesics. Unless she starts taking p.o.'s well I will likely place a feeding tube and start enteral feedings during this hospitalization. She will be getting a gastroenterology consultation as well as a foregut surgery consultation. documented in this [facility] Work Phone: 1(965) 196-480502-03-2024 Hospital Discharge instructions* Discharge Instructions* Jason Foster APRN-REAL ESTATE AGENT - 03/20/2023 3:21 PM EST What to [...] up in 1-2 weeks documented in this [facility] Work Phone: 1(374) 652-118102-02-2024 Plan of care note* Care Plan - [...] pain meds throughout the shift Outcome: Progressing [facility]02-02-2024 Miscellaneous Notes* Care Plan - Nathalie [...] to address these barriers include. * Care Mallory - Nathalie Campos RN - 03/18/2023 9:20 [...] of abdominal pain with considerable notes from [facility], and has a history gastric bypass, cholecystectomy, sphincterectomy, and recent median arcuate ligament release on March 05 with vascular surgery. [facility] [place] [facility] [place] and sent home, [...] issue which will be best done at [facility] either as inpatient or outpatient, where she has ongoing work, or is a postoperative situation that has been discussed multiple times with the primary operating service (and I have discussed with Tiffanie Mendez CNP with their service and there appears to be a good plan for imaging studies), and can ba admitted by their service). documented in this [facility] Work Phone: 1(389) 566-388902-02-2024 Plan of care note* Care Plan - [...] include. Recommendations to address these barriers include. [facility]02-01-2024 Plan of care note* Care Plan - [...] meds throughout the shift Outcome: Progressing [facility] Work Phone: 1(231) 880-281302-01-2024 Nurse Note* Andie Lugo RN - 03/18/2023 4:47 PM EST Pt resting quietly in bed, no distres noted [facility]02-01-2024 Nurse Note* Andie Lugo RN - 03/18/2023 3:17 PM EST Pt given IS and instructed how to use, pt verbalized understanding [facility] Work Phone: 1(651) 156-741602-01-2024 Nurse Note* Andie Lugo RN - 03/18/2023 2:50 PM EST Ronnie foster cnp into see pt [facility] Work Phone: 1(475) 729-328002-01-2024 Consult note* Nabila Moore RDN, SALVADOR - [...] 2 mg, intravenous, q4h PRN, Lizz Brunson APRN-REAL ESTATE AGENT, 2 mg at 03/18/23 1407 ondansetron (Zofran) [...] Energy Needs Total Energy Estimated Needs (kCal): (6661-3002 kcals) Total Estimated Energy Need per Day (kCal/kg): (25-30 kcals/kg) Method for Estimating Needs: adjusted IBW Estimated Protein Needs Total Protein Estimated Needs (g): (68-81g Protein) Total Protein Estimated Needs (g/kg): (1-1.2 g/kg) Method for Estimating Needs: adjusted IBW Estimated Fluid Needs Total Fluid Estimated Needs (mL): (1988-3437 mL fluid) Method for Estimating Needs: 1 [...] Prescription: Individualized Nutrition Prescription Provided for : 4939-1756 kcals, 68-81g Protein, 7222-5942 mL fluid, provided via PO/NG, once diet advanced. Nutrition Interventions: Food and/or Nutrient Delivery Interventions Interventions: Enteral intake Enteral Intake: Modify composition of enteral nutrition, Modify rate of enteral nutrition Goal: When able to initiate Tube feeding, recommend Osmolite 1.5 @ goal rate of 45 mL/hr to [id number] kcals, 68g Protein, and 823 mL free [...] Needed?: 3-5 days Follow up Comment: 03/22/23 [facility]02-01-2024 Consult note* Nabila Moore RDN, LD [...] 650 mg, rectal, q4h PRN, Tiffanie Mendez, INVENTORY ADMINISTRATOR-REAL ESTATE AGENT albuterol 2.5 mg /3 mL (0.083 %) [...] mg, 4 mg, intravenous, q6h PRN, JAMA Jdud, 4 mg at 03/17/231954 oxyCODONE-acetaminophen (Percocet) 5-325 [...] Energy Needs Total Energy Estimated Needs (kCal): (2176-6816 kcals) Total Estimated Energy Need per Day (kCal/kg): (25-30 kcals/kg) Method for Estimating Needs: adjusted IBW Estimated Protein Needs Total Protein Estimated Needs (g): (68-81g Protein) Total Protein Estimated Needs (g/kg): (1-1.2 g/kg) Method for Estimating Needs: adjusted IBW Estimated Fluid Needs Total Fluid Estimated Needs (mL): (9052-8695 mL fluid) Method for Estimating Needs: 1 [...] Prescription: Individualized Nutrition Prescription Provided for : 9637-3017 kcals, 68-81g Protein, 0303-0598 mL fluid, provided via PO/NG, once diet advanced. Nutrition Interventions: Food and/or Nutrient Delivery Interventions Interventions: Enteral intake Enteral Intake: Modify composition of enteral nutrition, Modify rate of enteral nutrition Goal: When able to initiate Tube feeding, recommend Osmolite 1.5 @ goal rate of 45 mL/hr to [id number] kcals, 68g Protein, and 823 mL free [...] with liver biopsy in April 2020 at [facility] in evaluation of her chronic abdominal pain and intermittent food intolerance. She had a vertical sleeve gastrectomy at [facility] on September 03, 2020 for morbid obesity. She had a diagnostic laparoscopy on March 20, 2021 at [facility] for chronic pain thought to be secondary to an abdominal wall hernia. No hernia was seen at laparoscopy. She complained of gastroesophageal reflux disease and had her vertical sleeve gastrectomy converted to Tan-en-Y gastric bypass at [facility] on January 29, 2022. On March 06, 2022 she had an upper endoscopy at [facility] for epigastric abdominal pain. Her gastrojejunostomy was congested, edematous, with erosions and friable mucosa. The anastomosis was dilated and she was discharged on twice daily PPI. She had an upper endoscopy at [facility] onJune 23, 2022 for epigastric pain. At that time her gastrojejunostomy appeared normal. She continued to complain of abdominal pain and had an upper endoscopy at the [facility] on October 27, 2022. She was found to have food in her stomach and jejunum. There was no evidence of gastrojejunal ulcer. On November 11, 2022 she had laparoscopic closure of internal hernia at the jejunojejunostomy and ERCP through her gastric remnant for her abdominal pain. She was hospitalized at the [facility] on December 06, 2022 for [...] by laparotomy on March 05, 2023 at [facility]. She was discharged to home on March [...] medical history of MARSHAL (acute kidney injury) ([facility]/HCC), Autoimmune disorder (CMS/HCC), Bipolar disorder (CMS/HCC), BPH (benign prostatic hyperplasia), Cerebral aneurysm, Cervical cancer (CMS/HCC), Cervical disc disease, Chronic kidney disease, CKD (chronic kidney disease), Cognitivedecline, Crohn's disease (CMS/HCC), Dementia (CMS/HCC), Dysphagia, Endometrial cancer (CMS/HCC), Esophageal cancer (CMS/HCC), Esophageal disease, ESRD (end stage renal disease) ([facility]/HCC), Fibromyalgia, primary, Fractures, Gastric cancer (CMS/HCC), Gender dysphoria, GI (gastrointestinal bleed), Hemodialysis status ([facility]/HCC), Hernia, internal, History of peritoneal dialysis, HIV disease (CMS/HCC), Immunocompromised ([facility]/HCC), Liver disease, Lumbar disc disease, Mastocytosis, MS (multiple sclerosis) (CMS/HCC), Muscular dystrophy (CMS/HCC), Myasthenia gravis ([facility]/HCC), Neuromuscular disorder ([facility]/HCC), Ovarian cancer ([facility]/HCC), Pancreatitis, Peptic ulcer disease, Prematurity, PTSD [...] Diabetes Mother Jessicagrace Phipps Hypertension Mother Jessica Jeterino Cancer Maternal [...] INDICATION: Signs/Symptoms:abdominal pain. COMPARISON: None. ACCESSION NUMBER(S): [id number] ORDERING CLINICIAN: TIFFANIE MENDEZ TECHNIQUE: Multiple fluoroscopic spot images were obtained during a single contrast upper GI with KUB. Total fluoroscopy time: 1 minute 32 seconds Radiation exposure (Reference Air Kerma): 99.36 mGy Images: 2 spot images 7 series and 2 delayed AP views of the abdomen FINDINGS: Comfort Station Attendant images demonstrate postsurgical changes from previous Tan-en-Y [...] evidence for obstruction.. MACRO: none Signed by: oCrie Garza 03/17/2023 5:00 PM Dictation workstation: [id number] Latest Reference Range & Units 03/17/23 07:04 [...] recommendations. Kurt Matos MD * Cheyenne Jansen, INVENTORY ADMINISTRATOR-REAL ESTATE AGENT - 03/17/2023 10:29 AM EST Consults Reason [...] Irritable bowel syndrome, Median arcuate ligament syndrome ([facility]/HCC), PCOS (polycystic ovarian syndrome), PONV (postoperative nausea and vomiting), PUD (peptic ulcer disease), and Shortness of breath. She has no past medical history of MARSHAL (acute kidney injury) ([facility]), Autoimmune disorder ([facility]), Bipolar disorder ([facility]), BPH (benign prostatic hyperplasia), Cerebral aneurysm, Cervical cancer ([facility]), Cervical disc disease, Chronic kidney disease, CKD (chronic kidney disease), Cognitivedecline, Crohn's disease ([facility]/HCC), Dementia ([facility]), Dysphagia, Endometrial cancer ([facility]), Esophageal cancer ([facility]), Esophageal disease, ESRD (end stage renal disease) ([facility]), Fibromyalgia, primary, Fractures, Gastric cancer ([facility]), Gender dysphoria, GI (gastrointestinal bleed), Hemodialysis status ([facility]), Hernia, internal, History of peritoneal dialysis, HIV disease ([facility]), Immunocompromised ([facility]), Liver disease, Lumbar disc disease, Mastocytosis, MS (multiple sclerosis) ([facility]), Muscular dystrophy ([facility]), Myasthenia gravis ([facility] Neuromuscular disorder ([facility]), Ovarian cancer ([facility]), Pancreatitis, Peptic ulcer disease, Prematurity, PTSD (post-traumatic stress disorder), Schizophrenia ([facility]), Seizure disorder ([facility]), Spinal stenosis, Substanceaddiction ([facility]), Syncope, TIA (transient ischemic attack), Ulcerative colitis ([facility]), Urinary tract infection, Uterine cancer ([facility]), or Vertigo. Surgical History She has [...] and IV contrast. COMPARISON: None.. ACCESSION NUMBER(S): [id number] ORDERING CLINICIAN: TIFFANIE MENDEZ TECHNIQUE: Oral contrast [...] Corie Garza 03/16/2023 5:46 PM Dictation workstation: [id number] XR chest 1 view Result Date: 03/06/2023 Interpreted By: Sara Zarate, STUDY: XR CHEST 1 VIEW; 03/06/2023 7:32 am INDICATION: Signs/Symptoms:post op COMPARISON: None ACCESSION NUMBER(S): [id number] ORDERING CLINICIAN: JASON FOSTER TECHNIQUE: Frontal and [...] Sara Zarate 03/06/2023 1:48 PM Dictation workstation: [id number] XR chest 1 view Result Date: 03/05/2023 Interpreted By: Baldomero Hendrickson, STUDY: XR CHEST 1 VIEW; 03/05/2023 3:11 pm INDICATION: CLINICAL INFORMATION: Signs/Symptoms:NG tube placement confirmation. COMPARISON: 03/05/2019 at 745 hours ACCESSION NUMBER(S): [id number] ORDERING CLINICIAN: DESMOND TIRADO TECHNIQUE: Portable chest [...] Baldomero Hendrickson 03/05/2023 3:31 PM Dictation workstation: [id number] XR chest 1 view Result Date: 03/05/2023 Interpreted By: Nya Ahmadi, STUDY: XR CHEST 1 VIEW 03/05/2023 7:51 am INDICATION: Signs/Symptoms:confirm line placement COMPARISON: None available. ACCESSION NUMBER(S): [id number] ORDERING CLINICIAN: SERENA GEORGE TECHNIQUE: AP erect view of the chest FINDINGS: Right arm PICC line terminates in the SVC. There is no pneumothorax. The heart, mediastinum, and lungs are normally visualized. Right arm PICC line terminating in SVC without pneumothorax. No acute cardiopulmonary disease. Signed by: Nya Ahmadi 03/05/2023 7:54 AM Dictation workstation: [id number] Assessment/Plan NV, Epigastric Pain (LFTs are normal. [...] presence of Dr. Jah Nguyen. * Lizz Brunson, INVENTORY ADMINISTRATOR-REAL ESTATE AGENT - 03/16/2023 5:09 PM EST Consults Reason For Consult Medical management History Of Present Illness Abbey Garcia is a 32 y.o. female presenting with abdominal pain. 32-year-old female presents to [facility] for chief complaint of abdominal pain, [...] emergency room close to her home near [place], [place] for further evaluation and was promptly transferred to [facility] for further evaluation and treatment. The [...] medical history of MARSHAL (acute kidney injury) ([facility]), Autoimmune disorder ([facility]/HCC), Bipolar disorder ([facility]), BPH (benign prostatic hyperplasia), Cerebral aneurysm, Cervical cancer ([facility]/HCC), Cervical disc disease, Chronic kidney disease, CKD (chronic kidney disease), Cognitivedecline, Crohn's disease ([facility]/HCC), Dementia ([facility]/HCC), Dysphagia, Endometrial cancer ([facility]/HCC), Esophageal cancer ([facility]/HCC), Esophageal disease, ESRD (end stage renal disease) ([facility]), Fibromyalgia, primary, Fractures, Gastric cancer ([facility]/HCC), Gender dysphoria, GI (gastrointestinal bleed), Hemodialysis status ([facility]), Hernia, internal, History of peritoneal dialysis, HIV disease ([facility]), Immunocompromised ([facility]), Liver disease, Lumbar disc disease, Mastocytosis, MS (multiple sclerosis) ([facility]/HCC), Muscular dystrophy (CMS/HCC), Myasthenia gravis (CMS/HCC), Neuromuscular [...] to follow. JAMA Smith documented in this [facility] Work Phone: 1(667) 596-309002-01-2024 Plan of care note* Care Plan - Andie Lugo RN - 03/18/2023 11:05 AM EST The patient's goals for the shift include Free from pain The clinical goals for the shift include decrease nausea [facility] Work Phone: [phone]) [phone] Nurse Note* Andie Lugo RN - 03/18/2023 7:27 AM EST Assumed care of pt, pt resting quietly in bed, ng to liws , will monitor [facility] Work Phone: [phone]) [phone] Plan of care note* Care Plan - [...] meds throughout the shift Outcome: Progressing [facility] Work Phone: [phone]) [phone] Consult note* Kurt Matos MD - 03/17/2023 [...] with liver biopsy in April 2020 at [facility] in evaluation of her chronic abdominal pain and intermittent food intolerance. She had a vertical sleeve gastrectomy at [facility] on September 03, 2020 for morbid obesity. She had a diagnostic laparoscopy on March 20, 2021 at [facility] for chronic pain thought to be secondary to an abdominal wall hernia. No hernia was seen at laparoscopy. She complained of gastroesophageal reflux disease and had her vertical sleeve gastrectomy converted to Tan-en-Y gastric bypass at [facility] on January 29, 2022. On March 06, 2022 she had an upper endoscopy at [facility] for epigastric abdominal pain. Her gastrojejunostomy was congested, edematous, with erosions and friable mucosa. The anastomosis was dilated and she was discharged on twice daily PPI. She had an upper endoscopy at [facility] onJune 23, 2022 for epigastric pain. At that time her gastrojejunostomy appeared normal. She continued to complain of abdominal pain and had an upper endoscopy at the [facility] on October 27, 2022. She was found to have food in her stomach and jejunum. There was no evidence of gastrojejunal ulcer. On November 11, 2022 she had laparoscopic closure of internal hernia at the jejunojejunostomy and ERCP through her gastric remnant for her abdominal pain. She was hospitalized at the [facility] on December 06, 2022 for [...] by laparotomy on March 05, 2023 at [facility]. She was discharged to home on March [...] medical history of MARSHAL (acute kidney injury) ([facility]/HCC), Autoimmune disorder ([facility]/HCC), Bipolar disorder (CMS/HCC), BPH (benign prostatic hyperplasia), Cerebral aneurysm, Cervical cancer ([facility]/HCC), Cervical disc disease, Chronic kidney disease, CKD (chronic kidney disease), Cognitivedecline, Crohn's disease ([facility]/HCC), Dementia ([facility]/HCC), Dysphagia, Endometrial cancer ([facility]/HCC), Esophageal cancer ([facility]/HCC), Esophageal disease, ESRD (end stage renal disease) ([facility]/HCC), Fibromyalgia, primary, Fractures, Gastric cancer ([facility]/HCC), Gender dysphoria, GI (gastrointestinal bleed), Hemodialysis status ([facility]/HCC), Hernia, internal, History of peritoneal dialysis, HIV disease ([facility]/HCC), Immunocompromised ([facility]/HCC), Liver disease, Lumbar disc disease, Mastocytosis, MS (multiple sclerosis) ([facility]/HCC), Muscular dystrophy ([facility]/HCC), Myasthenia gravis ([facility]/HCC), Neuromuscular disorder ([facility]/HCC), Ovarian cancer ([facility]/HCC), Pancreatitis, Peptic ulcer disease, Prematurity, PTSD (post-traumatic stress disorder), Schizophrenia ([facility]/HCC), Seizure disorder ([facility]/HCC), Spinal stenosis, Substanceaddiction ([facility]/HCC), Syncope, TIA (transient ischemic attack), Ulcerative colitis ([facility]/HCC), Urinary tract infection, Uterine cancer ([facility]/HCC), or Vertigo. Surgical History She has [...] INDICATION: Signs/Symptoms:abdominal pain. COMPARISON: None. ACCESSION NUMBER(S): [id number] ORDERING CLINICIAN: TIFFANIE MENDEZ TECHNIQUE: Multiple fluoroscopic spot images were obtained during a single contrast upper GI with KUB. Total fluoroscopy time: 1 minute 32 seconds Radiation exposure (Reference Air Kerma): 99.36 mGy Images: 2 spot images 7 series and 2 delayed AP views of the abdomen FINDINGS: Comfort Station Attendant images demonstrate postsurgical changes from previous Tan-en-Y [...] Corie Garza 03/17/2023 5:00 PM Dictation workstation: [id number] Latest Reference Range & Units 03/17/23 07:04 [...] my evaluation and recommendations. Kurt Matos MD [facility] Work Phone: [phone] Nurse Note* Cathy Madera RN - 03/17/2023 6:05 PM EST NG tube re inserted per order. Patient tolerated well. No complications. This nurse requested orderfor xray for placement of NG tube. Order received. Waiting on mining engineering technologist to verify placement per order. Will continue to monitor patient to ensure patient safety. [facility] Work Phone: [phone] Plan of care note* Care Plan - [...] control, maintain and ensure patient safety. [facility] Work Phone: [phone] Nurse Note* Cathy Madera RN - 03/17/2023 [...] per to re insert NG tube and materials management supervisor to low suction. Will re attempt with patients consent. [facility] Work Phone: [phone] Nurse Note* Cathy Madera RN - 03/17/2023 12:06 PM EST Patient transported to ay for placement of NG. Patient off unit. [facility] Work Phone: [phone] Nurse Note* Cathy Madera RN - 03/17/2023 11:44 AM EST This nurse notified computed tomography technician that patient had NG tube placed and needed Xray for placement verification. This nurse messaged Rosa YUN to notify her that NG tube was placed and needed separate order for NG tube placement per computed tomography technician. Order received. Will continue to monitor patient to ensure patient safety. [facility] Work Phone: [phone] History and physical note* JAMA Judd - 03/17/2023 11:03 AM EST History Of Present Illness This is a 32-year-old female with past medical history of chronic abdominal pain, PCOS, PUD, depression, GERD, IBS, obesity (status post laparoscopic sleeve gastrectomy in August [address] Ku [id number]-F gastric bypass 01/29/[address] Kat) and [...] her local hospital and was transferred to [facility] per Dr. Magaña's request. Patient has [...] and IV contrast. COMPARISON: None.. ACCESSION NUMBER(S): [id number] ORDERING CLINICIAN: TIFFANIE MENDEZ TECHNIQUE: Oral contrast [...] Corie Garza 03/16/2023 5:46 PM Dictation workstation: [id number] XR chest 1 view Result Date: 03/06/2023 Interpreted By: Sara Zarate, STUDY: XR CHEST 1 VIEW; 03/06/2023 7:32 am INDICATION: Signs/Symptoms:post op COMPARISON: None ACCESSION NUMBER(S): [id number] ORDERING CLINICIAN: JASON FOSTER TECHNIQUE: Frontal and [...] Sara Zarate 03/06/2023 1:48 PM Dictation workstation: [id number] XR chest 1 view Result Date: 03/05/2023 Interpreted By: Baldomero Hendrickson, STUDY: XR CHEST 1 VIEW; 03/05/2023 3:11 pm INDICATION: CLINICAL INFORMATION: Signs/Symptoms:NG tube placement confirmation. COMPARISON: 03/05/2019 at 745 hours ACCESSION NUMBER(S): [id number] ORDERING CLINICIAN: DEMSOND TIRADO TECHNIQUE: Portable chest one view. FINDINGS: [...] Baldomero Hendrickson 03/05/2023 3:31 PM Dictation workstation: [id number] XR chest 1 view Result Date: 03/05/2023 Interpreted By: Nya Ahmadi, STUDY: XR CHEST 1 VIEW 03/05/2023 7:51 am INDICATION: Signs/Symptoms:confirm line placement COMPARISON: None available. ACCESSION NUMBER(S): [id number] ORDERING CLINICIAN: SERENA GEORGE TECHNIQUE: AP erect view of the chest FINDINGS: Right arm PICC line terminates in the SVC. There is no pneumothorax. The heart, mediastinum, and lungs are normally visualized. Right arm PICC line terminating in SVC without pneumothorax. No acute cardiopulmonary disease. Signed by: Nya Ahmadi 03/05/2023 7:54 AM Dictation workstation: [id number] Assessment and Plan -Abdominal pain/nausea -Median arcuate [...] Continue home iron supplementation GERD: Continue Pepcid [facility] Work Phone: [phone] History and physical note* JAMA Judd - 03/17/2023 11:03 AM EST History Of Present Illness This is a 32-year-old female with past medical history of chronic abdominal pain, PCOS, PUD, depression, GERD, IBS, obesity (status post laparoscopic sleeve gastrectomy in August [address] Ku [id number]-E gastric bypass 01/29/[address] Kat) and [...] and [facility]. She underwent further workup and was discharged home in stable condition from the emergency department, labs and imaging were negative. She then developed similar symptoms on March 09 represented to her local hospital and was transferred to [facility] per Dr. Magaña's request. Patient has [...] and IV contrast. COMPARISON: None.. ACCESSION NUMBER(S): [id number] ORDERING CLINICIAN: TIFFANIE MENDEZ TECHNIQUE: Oral contrast [...] Corie Garza 03/16/2023 5:46 PM Dictation workstation: [id number] XR chest 1 view Result Date: 03/06/2023 Interpreted By: Sara Zarate, STUDY: XR CHEST 1 VIEW; 03/06/2023 7:32 am INDICATION: Signs/Symptoms:post op COMPARISON: None ACCESSION NUMBER(S): [id number] ORDERING CLINICIAN: JASON FOSTER TECHNIQUE: Frontal and [...] Sara Zarate 03/06/2023 1:48 PM Dictation workstation: [id number] XR chest 1 view Result Date: 03/05/2023 Interpreted By: Baldomero Hendrickson, STUDY: XR CHEST 1 VIEW; 03/05/2023 3:11 pm INDICATION: CLINICAL INFORMATION: Signs/Symptoms:NG tube placement confirmation. COMPARISON: 03/05/2019 at 745 hours ACCESSION NUMBER(S): [id number] ORDERING CLINICIAN: DESMOND TIRADO TECHNIQUE: Portable chest [...] Baldomero Hendrickson 03/05/2023 3:31 PM Dictation workstation: [id number] XR chest 1 view Result Date: 03/05/2023 Interpreted By: Nya Ahmadi, STUDY: XR CHEST 1 VIEW 03/05/2023 7:51 am INDICATION: Signs/Symptoms:confirm line placement COMPARISON: None available. ACCESSION NUMBER(S): [id number] ORDERING CLINICIAN: SERENA GEORGE TECHNIQUE: AP erect view of the chest FINDINGS: Right arm PICC line terminates in the SVC. There is no pneumothorax. The heart, mediastinum, and lungs are normally visualized. Right arm PICC line terminating in SVC without pneumothorax. No acute cardiopulmonary disease. Signed by: Nya Ahmadi 03/05/2023 7:54 AM Dictation workstation: [id number] Assessment and Plan -Abdominal pain/nausea -Median arcuate [...] supplementation GERD: Continue Pepcid [facility]: [phone] Nurse Note* Cathy Madera RN - 03/17/2023 10:58 AM EST Patient is ordered NPO this nurse received verbal orders with readback to administer oral medication per Rosa YUN at bedside. Will continue to monitor patient to ensure patient safety. [facility] Work Phone: [phone] Nurse Note* Cathy Madera RN - 03/17/2023 [...] to monitor patient to ensure patient safety. [facility] Work Phone: [phone] Consult note* JAMA Petersen - 03/17/2023 10:29 [...] Irritable bowel syndrome, Median arcuate ligament syndrome ([facility]/HCC), PCOS (polycystic ovarian syndrome), PONV (postoperative nausea and vomiting), PUD (peptic ulcer disease), and Shortness of breath. She has no past medical history of MARSHAL (acute kidney injury) ([facility] Autoimmune disorder ([facility]), Bipolar disorder ([facility]), BPH (benign prostatic hyperplasia), Cerebral aneurysm, Cervical cancer ([facility]), Cervical disc disease, Chronic kidney disease, CKD (chronic kidney disease), Cognitivedecline, Crohn's disease ([facility]/HCC), Dementia ([facility]), Dysphagia, Endometrial cancer ([facility]), Esophageal cancer ([facility]), Esophageal disease, ESRD (end stage renal disease) ([facility]), Fibromyalgia, primary, Fractures, Gastric cancer ([facility]), Gender dysphoria, GI (gastrointestinal bleed), Hemodialysis status ([facility]), Hernia, internal, History of peritoneal dialysis, HIV disease ([facility]), Immunocompromised ([facility]), Liver disease, Lumbar disc disease, Mastocytosis, MS (multiple sclerosis) ([facility]), Muscular dystrophy ([facility]), Myasthenia gravis ([facility] Neuromuscular disorder ([facility]), Ovarian cancer ([facility]), Pancreatitis, Peptic ulcer disease, Prematurity, PTSD (post-traumatic stress disorder), Schizophrenia ([facility]), Seizure disorder ([facility]), Spinal stenosis, Substanceaddiction ([facility]), Syncope, TIA (transient ischemic attack), Ulcerative colitis ([facility]), Urinary tract infection, Uterine cancer ([facility]), or Vertigo. Surgical History She has [...] Diabetes Paternal Grandmother Grandmother Asthma Brother Adán Coronaino Allergies Codeine and Nsaids (non-steroidal anti-inflammatory drug) [...] and IV contrast. COMPARISON: None.. ACCESSION NUMBER(S): [id number] ORDERING CLINICIAN: TIFFANIE MENDEZ TECHNIQUE: Oral contrast [...] Corie Garza 03/16/2023 5:46 PM Dictation workstation: [id number] XR chest 1 view Result Date: 03/06/2023 Interpreted By: Sara Zarate, STUDY: XR CHEST 1 VIEW; 03/06/2023 7:32 am INDICATION: Signs/Symptoms:post op COMPARISON: None ACCESSION NUMBER(S): [id number] ORDERING CLINICIAN: JASON FOSTER TECHNIQUE: Frontal and [...] Sara Zarate 03/06/2023 1:48 PM Dictation workstation: [id number] XR chest 1 view Result Date: 03/05/2023 Interpreted By: Baldomero Hendrickson, STUDY: XR CHEST 1 VIEW; 03/05/2023 3:11 pm INDICATION: CLINICAL INFORMATION: Signs/Symptoms:NG tube placement confirmation. COMPARISON: 03/05/2019 at 745 hours ACCESSION NUMBER(S): [id number] ORDERING CLINICIAN: DESMOND TIRADO TECHNIQUE: Portable chest [...] Baldomero Hendrickson 03/05/2023 3:31 PM Dictation workstation: [id number] XR chest 1 view Result Date: 03/05/2023 Interpreted By: Nya Ahmadi, STUDY: XR CHEST 1 VIEW 03/05/2023 7:51 am INDICATION: Signs/Symptoms:confirm line placement COMPARISON: None available. ACCESSION NUMBER(S): [id number] ORDERING CLINICIAN: SERENA GEORGE TECHNIQUE: AP erect view of the chest FINDINGS: Right arm PICC line terminates in the SVC. There is no pneumothorax. The heart, mediastinum, and lungs are normally visualized. Right arm PICC line terminating in SVC without pneumothorax. No acute cardiopulmonary disease. Signed by: Nya Ahmadi 03/05/2023 7:54 AM Dictation workstation: [id number] Assessment/Plan NV, Epigastric Pain (LFTs are normal. [...] in the presence of Dr. Jah Nguyen. [facility] Work Phone: [phone] Nurse Note* Cathy Madera RN - 03/17/2023 [...] to monitor patient to ensure patient safety. [facility] Work Phone: [phone]) [phone] Consult note* JAMA Smith - 03/16/2023 5:09 PM EST Consults Reason For Consult Medical management History Of Present Illness Abbey Garcia is a 32 y.o. female presenting with abdominal pain. 32-year-old female presents to [facility] for chief complaint of abdominal pain, [...] emergency room close to her home near [place], [place] for further evaluation and was promptly transferred to [facility] for further evaluation and treatment. The hospitalist service is being consulted for medical management of hypothyroidism, asthma, GERD. Past Medical History She has a past medical history of Anxiety, Arthritis, Asthma, CPAP (continuous positive airway pressure) dependence, Depression, Dizziness, GERD (gastroesophageal reflux disease), Hypothyroidism, Irritable bowel syndrome, Median arcuate ligament syndrome ([facility]/HCC), PCOS (polycystic ovarian syndrome), PONV (postoperative nausea and vomiting), PUD (peptic ulcer disease), and Shortness of breath. She has no past medical history of MARSHAL (acute kidney injury) ([facility] Autoimmune disorder ([facility]), Bipolar disorder ([facility]), BPH (benign prostatic hyperplasia), Cerebral aneurysm, Cervical cancer ([facility]), Cervical disc disease, Chronic kidney disease, CKD (chronic kidney disease), Cognitivedecline, Crohn's disease ([facility]), Dementia ([facility]), Dysphagia, Endometrial cancer ([facility]), Esophageal cancer ([facility]), Esophageal disease, ESRD (end stage renal disease) ([facility]), Fibromyalgia, primary, Fractures, Gastric cancer ([facility]), Gender dysphoria, GI (gastrointestinal bleed), Hemodialysis status ([facility]), Hernia, internal, History of peritoneal dialysis, HIV disease ([facility]), Immunocompromised ([facility]), Liver disease, Lumbar disc disease, Mastocytosis, MS (multiple sclerosis) ([facility]), Muscular dystrophy ([facility]), Myasthenia gravis ([facility] Neuromuscular disorder ([facility]), Ovarian cancer ([facility]), Pancreatitis, Peptic ulcer disease, Prematurity, PTSD (post-traumatic stress disorder), Schizophrenia ([facility]), Seizure disorder ([facility]), Spinal stenosis, Substanceaddiction ([facility]), Syncope, TIA (transient ischemic attack), Ulcerative colitis ([facility]), Urinary tract infection, Uterine cancer ([facility]), or Vertigo. Surgical History She has [...] Elan Artino Anesthesia related problems Paternal Grandfather Elandanny Jeterino COPD Paternal Grandmother Grandmother Diabetes Paternal [...] consult. Will continue to follow. JAMA Smith [facility] Work Phone: 1(128) 309-122701-30-2024 Emergency department Note* Grecia Oates RN - 03/16/2023 5:00 PM EST Pt is requesting pain medication. MD Barker notified. Grecia Oates RN 03/16/23 170 [facility] Work Phone: 1(861) 839-380501-30-2024 Emergency department Note* Grecia Oates RN - 03/16/2023 5:00 PM EST Pt is requesting pain medication. MD Barker notified. Grecia Oates RN 03/16/23 1701 * Grecia Oates RN - 03/16/2023 3:54 PM EST Pt has not been able to sustain orthostatic VS. She is not able to stand at this time. Grecia Oates RN 03/16/23 2894 * Grecia Oates RN - 03/16/2023 1:46 PM EST Pt arrived from [place] due to abdominal pain due to celiac [...] dictation software, please excuse any errors in java software developer. Melisa Barker MD 03/16/231919 * HENNY Miller-C - 03/16/2023 1:37 PM EST HPI Chief Complaint Patient presents with Abdominal Pain Patient is a 32-year-old female history of gastric bypass surgery, median arcuate ligament syndromewith vascular surgery performed on March 05 transferred to [facility] from [facility] in [place] for abdominal pain and nausea vomiting. Patient states the abdominal pain is mid abdominal, no signs of surgical scar infection, states she has been unable to tolerate p.o. intake for 2 days now. She states she feels a burning cramping sensation around where her gastric pouch was placed. ER spoke with Dr. Magaña vascular surgeon who requested for patient to be sent to [facility] for further evaluation. Patient denies recent fever or chills. No other acute complaints at this time. [place] Coma Scale Score: 15 Patient History Past [...] Tue Mar 16, 2023 142 Vascular surgery AUTO DRIVER wanted to put in the imaging study [...] recognition software. Please excuse any errors of java software developer. My thought process and reason for plan [...] from: Patient, EMS, attending ER physician at [facility] Social Determinants of Health considered during this visit: Lives independently Medications given during visit: Medications dextrose 5%-0.45 % sodium chloride infusion (150 mL/hr intravenous New Bag 03/16/23 1436) albuterol 2.5 mg /3 mL (0.083 %) [...] and has been validated for use at [facility]. Negative results do not preclude COVID-19 infections or Influenza A/B infections, and should not be used as the sole basis for diagnosis, treatment, or other management decisions. If Influenza A/B and RSV PCR results are negative, testing for Parainfluenza virus, Adenovirus and Metapneumovirus is routinely performed for [facility] pediatric oncology and intensive [...] Dr. Magaña transferred ER to ER from [place] for further evaluation of her abdominal pain [...] Ngo RN 03/17/23 0826 [facility] Work Phone: 1([phone]) 300-661101-30-2024 Emergency department Note* Grecia Oates RN - 03/16/2023 3:54 PM EST Pt has not been able to sustain orthostatic VS. She is not able to stand at this time. Grecia Oates RN 03/16/23 4426 [facility] Work Phone: 1([phone]) 174-460201-30-2024 Note* Significant Event - Channing Oconnor DO - 03/16/2023 3:02 PM EST Called to admit this patient for abdominal pain. Going to review, this patient has a ongoing history since 2019 of abdominal pain with considerable notes from [facility], and has a history gastric bypass, cholecystectomy, sphincterectomy, and recent median arcuate ligament release on March 05 with vascular surgery. Patient [facility] [place] [facility] and sent home, [...] issue which will be best done at [facility] either as inpatient or outpatient, where she has ongoing work, or is a postoperative situation that has been discussed multiple times with the primary operating service (and I have discussed with Tiffanie Mendez CNP with their service and there appears to be a good plan for imaging studies), and can ba admitted by their service). [facility] Work Phone: [phone]) 630-822701-30-2024 Evaluation + Plan noteExtracted from: Title:ED Note [...] Date:08/04/2023 09:45:00 AM Scheduled Provider:Rajni Rouse MD Location:[facility] [place] Appointment Type:URO Office Visit Future Scheduled Tests Radiology* US Renal 06/10/22 [facility]01-30-2024 Emergency department Triage note* Grecai Oates, RN - 03/16/2023 1:46 PM EST Pt arrived from [place] due to abdominal pain due to celiac rupture. [place] be here for vascular surgery? Pt is A&O x3. States terrible pain in abdomen that doesn't go away. C/O nausea, vomiting, headaches, body chills. [facility] Work Phone: 1([phone]) 785-560701-30-2024 Emergency department Note* Linda Ngo RN - 03/16/2023 1:37 PM EST Into assess patient. Patient awake and A&OX4. Patient complains of incisional pain and requested Percocet for relief, rates pain 7/10. Assessed incisional wound on abdomen, incision well approximated, dry and scabbed, no drainage noted. Patient admits to surgery On 03/05/23 for MALS. Medicated with percocet as requested. Linda Ngo RN 03/17/23 08 [facility]01-30-2024 Emergency department Note* Linda Ngo RN - 03/16/2023 1:37 PM EST Report called to DEE Ortiz updated on patient's status. Linda Ngo RN 03/17/23 08 [facility] Work Phone: [phone] 522-948701-30-2024 Physician Emergency department Note* Melisa Barker MD [...] dictation software, please excuse any errors in java software developer. Melisa Barker MD 03/16/231919 [facility] Work Phone: [phone] 455-241401-30-2024 Physician Emergency department Note* Leatha Paul PA-C - 03/16/2023 1:37 PM EST HPI Chief Complaint Patient presents with Abdominal Pain Patient is a 32-year-old female history of gastric bypass surgery, median arcuate ligament syndromewith vascular surgery performed on March 05 transferred to [facility] from [facility] ER in [place] for abdominal pain and nausea vomiting. Patient states the abdominal pain is mid abdominal, no signs of surgical scar infection, states she has been unable to tolerate p.o. intake for 2 days now. She states she feels a burning cramping sensation around where her gastric pouch was placed. ER spoke with Dr. Magaña vascular surgeon who requested for patient to be sent to [facility] ER for further evaluation. Patient denies recent fever or chills. No other acute complaints at this time. [place] Coma Scale Score: 15 Patient History Past [...] e Mar 16, 2023 1421 Vascular surgery AUTO DRIVER wanted to put in the imaging study [...] recognition software. Please excuse any errors of java software developer. My thought process and reason for plan [...] from: Patient, EMS, attending ER physician at [facility] Social Determinants of Health considered during this visit: Lives independently Medications given during visit: Medications dextrose 5%-0.45 % sodium chloride infusion (150 mL/hr intravenous New Bag 03/16/23 5610) albuterol 2.5 mg /3 mL (0.083 %) [...] 5 mg (5 mg intravenous Given 03/16/23 3299) Diagnostic/tests Labs Reviewed CBC WITH AUTO DIFFERENTIAL [...] and has been validated for use at [facility]. Negative results do not preclude COVID-19 infections or Influenza A/B infections, and should not be used as the sole basis for diagnosis, treatment, or other management decisions. If Influenza A/B and RSV PCR results are negative, testing for Parainfluenza virus, Adenovirus and Metapneumovirus is routinely performed for [facility] pediatric oncology and intensive [...] Dr. Magaña transferred ER to ER from [place] for further evaluation of her abdominal pain [...] BLEEDING. Procedure Procedures Leatha Paul PA-C 03/16/23 2592 [facility] Work Phone: [phone]) [phone] Hospital Discharge instructions Patient Education 03/15/2023 18:18:58 [...] Follow these instructions at home: Medicines Take dyqk-ybq-vlmszzk and prescription medicines only as told by [...] Watch your condition for any changes. Take dvuf-vfi-koeutyy and prescription medicines only as told by [...] provider. Document Revised: 03/22/2020 Document Reviewed: 06/12/2019 [employer] Patient Education 2022 [employer] Follow Up Care 03/15/2023 11:45:15 With:Your surgeon Dr. Magaña Address:Unknown When:03/16/2023 17:30:59 [facility]01-29-2024 Evaluation + Plan noteExtracted from: Title:ED Note [...] 09:45:00 AM Scheduled Provider:Nasim JOHNSON, Rajni Ballesteros Location:[facility] [place] Appointment Type:URO Office Visit Future Scheduled Tests Radiology* US Renal 06/10/22 [facility]01-24-2024 Hospital Discharge instructions* Discharge Instr - Diet* Yue German RN - 03/10/2023 3:19 PM EST Regular Diet documented in this [facility] Work Phone: 1(326) 624-520201-24-2024 History of Present illness Narrative* Keesha Jack [...] Pt cleared for dc. Updates ent to [facility] who the pt has already been active with, F2F, dc summary and AVS sent via [employer], [facility] in 1-2 days. Pt ok to dc. 03/10/23 5318 Discharge Planning Patient expects to be discharged to: [facility] * Tiffanie Mendez, INVENTORY ADMINISTRATOR-REAL ESTATE AGENT - 03/10/2023 11:32 AM EST Images from [...] for p.o. Valium and Percocet sent to [facility] pharmacy - Follow-up orders placed for 1 month virtual appoint with Dr. Magaña - Work note faxed to her work as well as uploaded into epic - Cleared for discharge from vascular standpoint. [...] LE Dressing: Yes LE Dressing Adaptive Equipment: Air Twister Winder, Sock aide Pants Level of Assistance: Setup, [...] functional mobility a short household distance at [facility] for safety with close S. Pt demonstrating fair+/good standing balance with increased fatigue noted throughout task Outcome Measures:[facility] Daily Activity Putting on and [...] via laparotomy (03/05). Spoke with RN and REAL ESTATE AGENT regarding plans for consult. Theplan is for [...] 0.5 mg, intravenous, q4h PRN, Tiffanie Mendez, SLIM-REAL ESTATE AGENT, 0.5 mg at 03/09/23 1338 hydrOXYzine HCL (Atarax) tablet 25 mg, 25 mg, oral, Daily PRN, Chrissy Harris PA-C hydrOXYzine HCL (Atarax) tablet 25 mg, 25 mg, oral, q6h PRN, Alicia Toro APRN-BETH, 25 mg at 03/08/23 1306 insulin lispro [...] Follow up Comment: 03/12/23 * Carmen Auguste FLAQUITO Chen - 03/09/2023 3:02 PM EST Occupational Therapy [...] LE Dressing: Yes LE Dressing Adaptive Equipment: Air Twister Winder, Sock aide Pants Level of Assistance: Setup, [...] abside by precautions Outcome Measures:[facility] Daily Activity Putting on and [...] by discharge. Outcome: Progressing * Alicia Toro APRN-REAL ESTATE AGENT - 03/09/2023 10:50 AM EST Abbey Garcia [...] INDICATION: Signs/Symptoms:post op COMPARISON: None ACCESSION NUMBER(S): [id number] ORDERING CLINICIAN: JASON FOSTER TECHNIQUE: Frontal and [...] Sara Zarate 03/06/2023 1:48 PM Dictation workstation: [id number] Physical Exam Constitutional: Appearance: Normal appearance. HENT: [...] Time Calculation Start Time: 929 Stop Time: 0953 Time Calculation (min): 23 min Assessment/Plan PT [...] non-reciprocating pattern. Outcome Measures: [facility] Basic Mobility Turning from your [...] End: 03/20/23 Resolved: 03/09/23 * Jason Foster APRN-REAL ESTATE AGENT - 03/09/2023 10:24 AM EST Abbey Garcia [...] to continue ambulating [facility] -Senna discontinued due to patient's diarrhea. -Continue [...] ILIANA Morrell - 03/09/2023 9:24 AM EST [facility] pt is already active with them and are able to continue to provide Rn for tpn and added PT. 03/09/23922 Discharge Planning Patient expects to be discharged to: [facility] * ILIANA Morrell - 03/08/2023 2:52 PM EST [facility] met with pt at bedside. Pt lives in a house with her and 3 kids in two story house with first floor setup. 5 steps to enter the house. Pt drives, works, independent for mobility. Pt wears glasses. Only other medical supplies at home are for TPN. Pts PCP is Dr Jaquan Morrow with [facility], prescriptions filled through [facility] in [place]. Discussion around dc planning needs with the pt stating she will probably benefit from home health PT. Referrals sent to homecare agencies that service where she lives, these agencies include [facility], [address], [facility], [facility], [facility], await responses. 03/08/23 9932 Discharge Planning Patient expects to be discharged to: Home with [facility] * Anam Khoury, PT - 03/08/2023 1:16 [...] to sit Outcome Measures: [facility] Basic Mobility Turning from your [...] pain and fatigue Outcome Measures:[facility] Daily Activity Putting on and [...] tasks by discharge. Outcome: Progressing * Alicia oTro, INVENTORY ADMINISTRATOR-REAL ESTATE AGENT - 03/08/2023 11:04 AM EST Abbey Garcia [...] INDICATION: Signs/Symptoms:post op COMPARISON: None ACCESSION NUMBER(S): [id number] ORDERING CLINICIAN: JASON FOSTER TECHNIQUE: Frontal and [...] Sara Zarate 03/06/2023 1:48 PM Dictation workstation: [id number] Physical Exam Constitutional: Appearance: Normal appearance. HENT: [...] spirometer Bowel regimen DVT prophylaxis Urinary retention Lnog replaced Consult urology, appreciate recs Hypothyroidism Resume [...] INDICATION: Signs/Symptoms:post op COMPARISON: None ACCESSION NUMBER(S): [id number] ORDERING CLINICIAN: JASON FOSTER TECHNIQUE: Frontal and [...] Sara Zarate 03/06/2023 1:48 PM Dictation workstation: [id number] Physical Exam Constitutional: Appearance: Normal appearance. HENT: [...] needed, advance diet as tolerated DVT proph Lizz Brunson, INVENTORY ADMINISTRATOR-REAL ESTATE AGENT * Jory Kuflorian, PT - 03/07/2023 1:37 AM EST Physical [...] fatigue levels. Outcome Measures: [facility] Basic Mobility Turning from your [...] INDICATION: Signs/Symptoms:post op COMPARISON: None ACCESSION NUMBER(S): [id number] ORDERING CLINICIAN: JASON FOSTER TECHNIQUE: Frontal and [...] Sara Zarate 03/06/2023 1:48 PM Dictation workstation: [id number] Physical Exam Constitutional: General: She is not [...] proph Karma Sharpe MD * Jason Foster, INVENTORY ADMINISTRATOR-REAL ESTATE AGENT - 03/06/2023 1:57 PM EST Abbey Garcia [...] 50 mg, oral, BID Continuous medications potassium zfyhewoz-T4-8.9%NaCl, 125 mL/hr, Last Rate: 125 mL/hr (03/06/23 [...] recliner for comfort Prior Function: Level of Neon: Independent with ADLs and functional transfers, Independent with homemaking with ambulation ADL Assistance: Independent Homemaking Assistance: Independent Ambulatory Assistance: Independent 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 Daily Activity Putting on and [...] Prior Function Per Pt/Caregiver Report Level of Neon: Independent with ADLs and functional transfers, Independent [...] swelling noted) Outcome Measures: [facility] Basic Mobility Turning from your [...] Harris PA-C - 03/06/2023 7:28 AM EST [facility] Critical Care Medicine Date: 03/06/2023 [...] the morning. Take before meals. Pt to meat pickler prescription ondansetron ODT (Zofran-ODT) 4 mg disintegrating [...] Grandmother Diabetes Paternal Grandmother Grandmother Asthma Brother [facility] Medications: potassium qddjpdzs-T9-1.9%NaCl, 125 mL/hr, Last Rate: 125 mL/hr (03/06/23 [...] injection 20 mg, 20 mg, intravenous, BID, Badlomero [facility], 20 mg at 03/05/23 214 ferrous sulfate (325 mg ferrous sulfate) tablet 1 tablet, 1 tablet, oral, Daily with breakfast, Desmond Tirado PA-C glucagon (Glucagen) injection 1 mg, 1 mg, intramuscular, q15 min PRN, Desmond M Celestino, PA-C HYDROmorphone (Dilaudid) injection 0.5 mg, 0.5 mg, intravenous, q2h PRN, JAMA Lynn, 0.5 mg at 03/06/23 0650 hydrOXYzine HCL (Atarax) tablet 25 mg, 25 mg, oral, Daily PRN, Desmond Tirado PA-C insulin lispro (HumaLOG) injection 0-5 Units, 0-5 Units, subcutaneous, q4h, eDsmond Tirado PA-C, 1 Units at 03/06/23 0433 [...] ICU skin protocol Ethics/Code Status: Full code Wax Machine Operator: DVT Prophylaxis: Lovenox GI Prophylaxis: pepcid Bowel Regimen: miralax Diet: Clear liquids CVC: none Yoli: yes - left radial Long: yes Restraints: no Dispo: ICU Critical Care Time: 40 minutes Chrissy Harris PA-C documented in this [facility] Work Phone: 1(801) 102-590501-24-2024 Nurse Note* Edilia Darby RN - 03/10/2023 11:57 AM EST Patient with Rt arm dual lumen picc, dressing D&I, red lumen in use without difficulty, purple lumen flushes easily and with positive blood return, curos cap applied. [facility]01-24-2024 Nurse Note* Edilia Darby RN - [...] scanned for over 650cc, pt straight cath [id number] * Olga Paz RN - 03/07/2023 5:47 [...] will reach out to vascular doctor and AUTO DRIVER for the order. * Ron Mancera RN - 03/05/2023 1:58 PM EST Informed FIELD ORGANIZER to ask Dr. Magaña for admit orders prior to transfer. documented in this [facility] Work Phone: 1(575) 990-635101-24-2024 Nurse Note* Nadia Zee RN - 03/10/2023 11:36 AM EST Long catheter removed [facility]01-24-2024 Nurse Note* Eileen Austin RN - 03/10/2023 12:14 AM EST Blood sugar 79 gave patient hailee crackers and pudding. Complained 08/24 pain percocet was given [facility]01-23-2024 Consult note* Jin Vargas MD - [...] medical history of MARSHAL (acute kidney injury) ([facility]), Autoimmune disorder ([facility]), Bipolar disorder ([facility]), BPH (benign prostatic hyperplasia), Cerebral aneurysm, Cervical cancer ([facility]), Cervical disc disease, Chronic kidney disease, CKD (chronic kidney disease), Cognitivedecline, Crohn's disease ([facility]), Dementia ([facility]), Dysphagia, Endometrial cancer ([facility]), Esophageal cancer ([facility]), Esophageal disease, ESRD (end stage renal disease) ([facility]), Fibromyalgia, primary, Fractures, Gastric cancer ([facility]), Gender dysphoria, GI (gastrointestinal bleed), Hemodialysis status ([facility]), Hernia, internal, History of peritoneal dialysis, HIV disease ([facility]), Immunocompromised ([facility]), Liver disease, Lumbar disc disease, Mastocytosis, MS (multiple sclerosis) ([facility]), Muscular dystrophy ([facility] Myasthenia gravis ([facility] Neuromuscular disorder ([facility]), Ovarian cancer ([facility]), Pancreatitis, Peptic ulcer disease, Prematurity, PTSD (post-traumatic stress disorder), Schizophrenia ([facility]), Seizure disorder ([facility]), Spinal stenosis, Substanceaddiction ([facility]), Syncope, TIA (transient ischemic attack), Ulcerative colitis ([facility]), Urinary tract infection, Uterine cancer ([facility]), or Vertigo. Surgical History She has [...] care of this patient. Jin Vargas MD [facility] Work Phone: 1(253) 272-874001-23-2024 Consult note* Jin Vargas MD - 03/09/2023 4:02 PM EST Reason For Consult Urinary retention History Of Present Illness Abeby Garcia is a 32 y.o. female presenting [...] Irritable bowel syndrome, Median arcuate ligament syndrome ([facility]), PCOS (polycystic ovarian syndrome), PONV (postoperative nausea and vomiting), PUD (peptic ulcer disease), and Shortness of breath. She has no past medical history of MARSHAL (acute kidney injury) ([facility] Autoimmune disorder ([facility]), Bipolar disorder ([facility]), BPH (benign prostatic hyperplasia), Cerebral aneurysm, Cervical cancer ([facility]), Cervical disc disease, Chronic kidney disease, CKD (chronic kidney disease), Cognitivedecline, Crohn's disease ([facility]), Dementia ([facility]), Dysphagia, Endometrial cancer ([facility] [facility]), Esophageal cancer ([facility]), Esophageal disease, ESRD (end stage renal disease) ([facility]), Fibromyalgia, primary, Fractures, Gastric cancer ([facility]), Gender dysphoria, GI (gastrointestinal bleed), Hemodialysis status ([facility]), Hernia, internal, History of peritoneal dialysis, HIV disease ([facility]), Immunocompromised ([facility]), Liver disease, Lumbar disc disease, Mastocytosis, MS (multiple sclerosis) ([facility]), Muscular dystrophy ([facility] Myasthenia gravis ([facility] Neuromuscular disorder ([facility]), Ovarian cancer ([facility]), Pancreatitis, Peptic ulcer disease, Prematurity, PTSD (post-traumatic stress disorder), Schizophrenia ([facility]), Seizure disorder ([facility]), Spinal stenosis, Substanceaddiction ([facility]), Syncope, TIA (transient ischemic attack), Ulcerative colitis ([facility]), Urinary tract infection, Uterine cancer ([facility]), or Vertigo. 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 She was seen at [facility] by Dr. Kat and underwent an [...] She had a CT angiogram recently at [facility] but this is not available for [...] This is with Dr. Ramos over the [facility]. Currently any oral intake will [...] 650 mg, rectal, q4h PRN, Jason Foster, INVENTORY ADMINISTRATOR-REAL ESTATE AGENT albuterol 2.5 mg /3 mL (0.083 %) [...] mg, 20 mg, intravenous, BID, Baldomero Richards, [facility], 20 mg at 03/06/23 0854 ferrous [...] 03/09/23 documented in this [facility] Work Phone: 1(665) 635-233601-23-2024 Nurse Note* Yue Ferris RN - 03/09/2023 2:22 PM EST Upon rounding right upper arm dual lumen PICC with current CHG dressing dry and intact. One lumen in use, one with brisk blood return and flushes easily, Curos cap intact. [facility]01-22-2024 Plan of care note* Care Plan - Danny Middleton RN - 03/08/2023 11:21 PM EST The patient's goals for the shift include rest The clinical goals for the shift include pain will be controled overnight. [facility]01-22-2024 Miscellaneous Notes* Care Plan - Danny [...] address these barriers include . * Care Mallory - Olga Paz RN - 03/06/2023 8:57 [...] Goal: Promote skin healing 03/05/2023 1549 by Jhoanne Villamor, RN Outcome: Progressing 03/05/2023 1549 by Ron [...] Date: 03/05/2023 OR Location: [facility] Name: Patterson MRenetta Garcia, : 1990, Age: 32 y.o., , Sex: female Diagnosis Pre-op Diagnosis * 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] Post-op Diagnosis * 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] Procedures Release Median Arcuate Ligament by LAPAROTOMY [id number] - SC UNLISTED PX ABDOMEN MUSCULOSKELETAL SYSTEM Surgeons * Sherry Magaña - Primary Resident/Fellow/Other Remote Control Mirror Installer: Surgeon(s) and Role: Procedure Summary Anesthesia: General ASA: III Anesthesia Staff: Anesthesiologist: Serena George DO CARDROOM MANAGER: Maricruz Yip APRN-THOMAS Estimated Blood Loss: 2mL [...] EXAM Sherry Magaña MD 03/05/2023 1125 Staff: Ornamental Metal Fabricator Apprentice: Mary Mccabe RN; Natalie Young RN Scrub Person: Nadia Escobedo; Thu Ford Drains and/or Catheters: NG/OG/Feeding Tube NG - Romulus sump 16 Fr Right nostril (Active) Tube [...] MEMBRANE, SEPRAFILM, 5 X 6 IN - [id number] Implanted Findings: heavily inflammed ligamentous tissues and [...] Magaña documented in this [facility] Work Phone: 1(914) 796-822201-22-2024 Plan of care note* Care Plan - [...] meds throughout the shift Outcome: Progressing . [facility]01-22-2024 Plan of care note* Care Plan - Olga Paz RN - 03/08/2023 2:27 AM EST The patient's goals for the shift include rest The clinical goals for the shift include increase activity Over the shift, the patient did not make progress toward the following goals. Barriers to progression include weak/pain. Recommendations to address these barriers include administer medications/interventions as ordered. [facility] Work Phone: 1(201) 106-937201-22-2024 Nurse Note* Olga Paz RN - 03/08/2023 1:[address] Oconnor notified of retained urine. Order to insert long catheter. 16F long catheter placed, clear yellow urine return. Pt tolerated well. [facility]01-22-2024 Nurse Note* Olga Paz RN - 03/08/2023 12:48 AM EST Pt unable to urinate but continues to have an urge to do so. Bladder scan performed with 1152ml found. Page out to hospitalist. [facility] Work Phone: [phone] 661-571201-21-2024 Nurse Note* Nadia Zee RN - 03/07/2023 5:09 PM EST Pt with 10cc urine output since long removed, bladder scanned for over 650cc, pt straight cath [id number] [facility] Work Phone: 1(395) 163-822201-21-2024 Plan of care note* Care Plan - Nadia Zee RN - 03/07/2023 8:50 AM EST The patient's goals for the shift include rest The clinical goals for the shift include increase activity Over the shift, the patient did not make progress toward the following goals. Barriers to progression include . Recommendations to address these barriers include . [facility] Work Phone: 1(646) 553-375301-21-2024 Nurse Note* Olga Paz RN - 03/07/2023 5:47 AM EST Long catheter removed per order. Pt tolerated well [facility] Work Phone: 1(751) 936-675201-20-2024 Plan of care note* Care Plan - Olga Paz RN - 03/06/2023 8:57 PM EST The patient's goals for the shift include rest The clinical goals for the shift include increase activity Over the shift, the patient did not make progress toward the following goals. Barriers to progression include weak/pain. Recommendations to address these barriers include encouragement/administer medications/interventions as ordered. [facility] Work Phone: [phone] 546-408701-20-2024 Nurse Note* Vic Gilliland RN - 03/06/2023 4:22 PM EST Seeking clarification of appropriate disposition of patient and possible transfer to SDU. Patient understands possibility of transfer. 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 She was seen at [facility] by Dr. Kat and underwent an [...] She had a CT angiogram recently at [facility] but this is not available for [...] This is with Dr. Ramos over the [facility]. Currently any oral intake will [...] mg, 20 mg, intravenous, BID, Baldomero Richards, [facility], 20 mg at 03/06/23 0854 ferrous [...] Needed?: 3-5 days Follow up Comment: 03/09/23 [facility]01-20-2024 Plan of care note* Care Plan - [...] Recommendations to address these barriers include steroids. [facility] Work Phone: [phone] 893-763801-20-2024 Nurse Note* Vic Gilliland RN - 03/06/2023 9:01 AM EST Returned to bed with assist of two. Head of bed elevated 45 degrees. [facility] Work Phone: 1([phone] 303-193701-19-2024 Nurse Note* Ron Mancera RN - 03/05/2023 4:[address] Magaña at bedside, informed of the muscle spasm and administering PRN diazepam. No new orders placed. Plan to remove NGT tomorrow morning. [facility] Work Phone: [phone] 358-771601-19-2024 Plan of care note* Care Plan - [...] 1549 by Ron Mancera RN Outcome: Progressing [facility] Work Phone: 1([phone] 201-248701-19-2024 History and physical note* Desmond Tirado PA-C - 03/05/2023 2:49 PM EST [facility] Critical Care Medicine Date: 03/05/2023 [...] the morning. Take before meals. Pt to meat pickler prescription ondansetron ODT (Zofran-ODT) 4 mg disintegrating [...] Grandmother Diabetes Paternal Grandmother Grandmother Asthma Brother [facility] Medications: Current Facility-Administered Medications: acetaminophen [...] ICU skin protocol Ethics/Code Status: Full code Wax Machine Operator: DVT Prophylaxis: none GI Prophylaxis: pepcid [...] Desmond Tirado PA-C [facility] Work Phone: 1([phone]) 894-564001-19-2024 History and physical note* Desmond Tirado PA-C - 03/05/2023 2:49 PM EST [facility] Critical Care Medicine Date: 03/05/2023 Patient: Abbey Garcia Date of : 1990 Admit Date: 03/05/2023 Chief Complaint: abdominal pain History of Present Illness: bAbey Garcia is a 32 y.o. year old [...] the morning. Take before meals. Pt to meat pickler prescription ondansetron ODT (Zofran-ODT) 4 mg disintegrating [...] Grandmother Diabetes Paternal Grandmother Grandmother Asthma Brother [facility] Medications: Current Facility-Administered Medications: acetaminophen [...] 1 tablet, oral, q4h PRN, Jason Mckeon APRN-REAL ESTATE AGENT sennosides (Senokot) tablet 17.2 mg, 2 tablet, [...] ICU skin protocol Ethics/Code Status: Full code Wax Machine Operator: DVT Prophylaxis: none GI Prophylaxis: pepcid Bowel Regimen: miralax Diet: NPO CVC: none [place]: yes - left radial Long: yes Restraints: no Dispo: ICU Critical Care Time: 60 minutes spent in preparing to see patient (I.e.labs,imaging, etc.), documentation, discussion plan of care with patient/family/caregiver, and/ or coordination of care with multidisciplinary team including the attending. Time does not include completion of procedure time. 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 She was seen at [facility] by Dr. Kat and underwent an [...] She had a CT angiogram recently at [facility] but this is not available for [...] This is with Dr. Ramos over the [facility]. Currently any oral intake will [...] to review the CT angiogram done at [facility]. She is going to undergo a [...] with Dr. Deacon Kat. documented in [facility] Work Phone: [phone] 364-598701-19-2024 Nurse Note* Ron Mancera RN - 03/05/2023 2:01 PM EST Patient in the unit from PACU, unable to transfer in [facility]. No admit order yet. PACU Rns saw the warning note when trying to transfer the patient without admit orders. PACU staff will reach out to vascular doctor and AUTO DRIVER for the order. [facility] Work Phone: [phone]) 871-823001-19-2024 Nurse Note* Ron Mancera RN - 03/05/2023 1:58 PM EST Informed FIELD ORGANIZER to ask Dr. Magaña for admit orders prior to transfer. [facility] Work Phone: [phone] 198-607801-19-2024 Note* Perioperative Nursing Note - Samantha Fields RN - 03/05/2023 1:52 PM EST Patient meets PACU discharge criteria. [facility]01-19-2024 Note* Perioperative Nursing Note - Samantha Fields RN - 03/05/2023 1:07 PM EST Patient to PACU bay 7 with left radial art line in place. Zeroed and waveforms appropriate. Clean/dry and intact. VSS. [facility] Work Phone: [phone]) 422-591001-19-2024 Note* Op Note - Sherry Magaña MD [...] Procedures Release Median Arcuate Ligament by LAPAROTOMY [id number] - SC UNLISTED PX ABDOMEN MUSCULOSKELETAL SYSTEM Surgeons * Sherry Magaña - Primary Resident/Fellow/Other Remote Control Mirror Installer: Surgeon(s) and Role: Procedure Summary Anesthesia: General ASA: III Anesthesia Staff: Anesthesiologist: Serena George DO CARDROOM MANAGER: Maricruz Yip APRN-THOMAS Estimated Blood Loss: 2mL [...] EXAM Sherry Magaña MD 03/05/2023 1125 Staff: Ornamental Metal Fabricator Apprentice: Mary Mccabe RN; Natalie Young RN Scrub Person: Nadia Escobedo; Thu Ford Drains and/or Catheters: NG/OG/Feeding Tube NG - Romulus sump 16 Fr Right nostril (Active) Tube [...] MEMBRANE, SEPRAFILM, 5 X 6 IN - [id number] Implanted Findings: heavily inflammed ligamentous tissues and [...] scrubbed for the entire procedure. 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 She was seen at [facility] by Dr. Kat and underwent an [...] She had a CT angiogram recently at [facility] but this is not available for [...] This is with Dr. Ramos over the [facility]. Currently any oral intake will [...] to review the CT angiogram done at [facility]. She is going to undergo a [...] UGIS. Will discuss with Dr. Deacon Kat. [facility] Work Phone: [phone]) [phone] NoteHNO ID: [id number] Author: Rylee Thacker APRN.REAL ESTATE AGENT Service: ? Author Type: Nurse Practitioner Type: Progress Notes Filed: 01/28/2023 3:12 PM Note Text: Appointment cancelled by patientUniversity [facility]als [facility]12-04-2023 Miscellaneous Notes* Telephone Encounter - Laura Rodas RN - 01/18/2023 9:20 AM EST [facility] to confirm received potassium orders for (K-2.9). No answer and left message for Thea sales outfitter from [facility]. (Do not feel Dr. Kat is managing TPN as well) * Telephone Encounter - Dorita Manning - 01/15/2023 11:47 AM EST [facility] called regarding potassium level. Level was 2.9. Patient already on max dose of potassium allowed with her TPN. They are asking for recommendations # [phone] documented in this encounterOhiohealth [facility]11-27-2023 Miscellaneous Notes* Telephone Encounter - Joaquín [...] if so ok to call her back [phone] Ok to leave a message documented in this encounterOhiohealth O'[facility]len[facility]11-27-2023 Miscellaneous Notes* Telephone Encounter - Fern Jonas LPN - 01/11/2023 10:49 AM EST Surg request placed, pt aware, instructions given verbally and via Veronicahart, all questions and concerns addressed. documented in this encounterOhiohealth O'Blen[facility] Hospital11-27-2023 NoteHNO ID: [id number] Author: Fern Jonas LPN Service: ? Author Type: LICENSED NURSE Type: Progress Notes Filed: 01/11/2023 10:42 AM Note Text: Please verify and cosign BRO VillaseñorMet[facility]11-27-2023 History of Present illness Narrative* Fern Jonas LPN - 01/11/2023 10:37 AM EST Please verify and cosign Fern Jonas LPN documented in this encounterOhiohealth O'Bleness Hospital11-24-2023 [facility]11-24-2023 History of Present illness [...] which included preparing to see the patient, xesj-rx-jxpd patient care, completing clinical documentation, obtaining and/or reviewing separately obtained history, counseling and educating the patient/family/caregiver, ordering medications, stevan ts, or procedures, communicating with other HCPs (not separately reported), independently interpreting results (not separately reported), communicating results to the patient/family/caregiver, and care coordination (not separately reported). Vic Ramos MD January 08, 2023 documented in this encounterOhiohealth O'[facility]len[facility]11-22-2023 Miscellaneous Notes* Telephone Encounter - Clarence [...] to pain for visit. documented in this encounterOhiohealth O'Bleness Hospital11-16-2023 Hospital Discharge instructions Patient Education 12/31/2022 [...] oral rehydration solution (ORS). This is an kepc-fct-wmzrair medicine that helps return your body to [...] drinks, sports drinks, and soda. Eat bland, zvjc-fx-vvfnfi foods in small amounts as you are able. These foods include bananas, applesauce, rice, lean meats, toast, and crackers. Avoid alcohol. Avoid spicy or fatty foods. Medicines Take xphm-sjb-ximpgbx and prescription medicines only as told by your health care provider. If you were prescribed an antibiotic medicine, take it as told by your health care provider. Do notstop using the antibiotic even if you start to feel better. General instructions Wash your hands often using soap and water. If soap and water are not available, use a hand mail order biller. Others in the household should wash their [...] soap and water are not available, usehand mail order biller. Contact a health care provider if your diarrhea gets worse or you have new symptoms. Get help right away if you have signs of dehydration. This information is not intended to replace advice given to you by your health care provider. Make sure you discuss any questions you have with your health care provider. Document Revised: 08/13/2021 Document Reviewed: 08/13/2021 [employer] Patient Education 2022 [employer]. 12/31/2022 16:02:59 Abdominal Pain, Adult Abdominal Pain, [...] Follow these instructions at home: Medicines Take odiu-xbl-yxcxdhj and prescription medicines only as told by [...] Watch your condition for any changes. Take ogtw-qqq-zcvyvuv and prescription medicines only as told by [...] provider. Document Revised: 03/22/2020 Document Reviewed: 06/12/2019 [employer] Patient Education 2022 [employer]. Follow Up Care 12/31/2022 12:31:54 With:Jaquan Morrow Address: [address] [place] [address] Business (1) When:01/03/2023 15:35:16 [facility]11-16-2023 Evaluation + Plan noteExtracted from: Title:ED Note [...] 10:00:00 AM Scheduled Provider:Nasim JOHNSON, Rajni Ballesteros Location:[facility] [place] Appointment Type:URO Office Visit Future Scheduled Tests Radiology* US Renal 06/10/22 [facility]11-13-2023 Miscellaneous Notes* Telephone Encounter - Shanique Manning HUC - 12/28/2022 4:05 PM EST BMI Incoming Patient Nursing Line Call Summary: Situation/Concerns Melisa Potter's called [phone] called and said Abbey needs a RTWletter [...] Katz documented in this encounterOhiohealth O'Blen[facility]10-30-2023 History of Present illness Narrative* Deacon [...] visit. Either the patient or their legal retail customer service representative has been informed of the [...] Kat MD documented in this encounterOhiohealth O'Bleness Hospital10-30-2023 NoteUniversity [facility]10-25-2023 NoteUniversity Hospitals [facility]10-25-2023 NoteUniversity Hospitals [facility]10-25-2023 NoteUniversity [facility]10-24-2023 Note [facility]10-23-2023 NoteUniversity [facility]als [facility]10-23-2023 NoteUniversity [facility]als [facility]10-23-2023 NoteUniversity [facility]als [facility] 12-04-2022 History and physical note* [...] was started since her last admission to [facility] last week. Patient's weight [...] Dr Kat who referred to Dr Zamorano [facility] of hypothyroidism, HTN, gastric ulcer, GERD, [...] for MALS- plans for surgical intervention at [facility] Consult scheduled with Dr Zamorano on 12/04. Will r/s if pt still in house. 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 referral to GI specialist , on TPN documented in this encounterOhiohealth O'Bleness Hospital10-17-2023 Miscellaneous Notes* Telephone Encounter - Li Kimball RN - 12/01/2022 2:32 PM EDT Patient remains admitted at [facility]. Patient received a PICC line for home TPN to bridge her to surgery. Patient is scheduled with Dr. Zamorano for virtual consult 12/04/2022. Patient with increasednausea with TPN, Debbie continues to adjust medications. Li Kimball RN documented in this encounterOhiohealth O'Bleness Hospital10-14-2023 NoteHNO ID: [id number] Author: Note, Interface Service: ? Author Type: ? Type: Progress Notes Filed: 11/28/2022 5:10 AM Note Text: Epic Scheduled Downtime: 11/28/2022 1:00:00 AM to 11/28/2022 1:28:00 [facility]10-14-2023 NoteHNO ID: [id number] Author: Note, Interface Service: ? Author Type: ? Type: Progress Notes Filed: 11/28/2022 3:45 AM Note Text: Epic Scheduled Downtime: 11/28/2022 1:00:00 AM to 11/28/2022 1:28:00 [facility]-5762 NoteHNO ID: [id number] Author: Note, Interface Service: ? Author Type: ? Type: Progress Notes Filed: 11/28/2022 3:27 AM Note Text: Epic Scheduled Downtime: 11/28/2022 1:00:00 AM to 11/28/2022 1:28:00 [facility]10-12-2023 NoteHNO ID: [id number] Author: Quyen Deshpande RN Service: ? Author Type: Registered Nurse Type: Progress Notes Filed: 11/26/2022 10:37 AM Note Text: Patient in office for hydration infusion. Patient tolerated infusion well. [facility]Oaxfbtao87-[facility]-1792 Miscellaneous Notes* Telephone Encounter - Kristin Hu RN - 11/25/2022 12:55 PM EDT Left message confirming pts appt tomorrow in the chronic care clinic for hydration. documented in this encounterOhiohealth O'Bleness Hospital10-09-2023 Miscellaneous Notes* Telephone Encounter - Li Kimball RN - 11/23/2022 2:26 PM EDT Mesenteric ultrasound scheduled for 11/26/2022 at [facility], patient notified. Li Kimball RN * Telephone Encounter - Li Kimball RN - 11/23/2022 12:31 PM EDT I spoke to the patient's and advised that I have a request out to [facility] for IV hydration and Dr. Kat has [...] states the hospital ids going to discharge Patterson and states she is unable to eat or drink and continues to have pain. Li Kimball RN documented in this encounterOhiohealth O'Bleness Hospital10-08-2023 [facility] 11-22-2022 NoteEncompass HealthYamzvqpb58-60-6777 NoteLemuel Shattuck HospitalYebfbpzt72-96-4520 NoteHNO ID: [id number] Author: Rajni Walsh RN Service: ? Author Type: Registered Nurse Type: Nursing Progress Note Filed: 11/18/2022 10:13 AM Note Text: Other: C/o ultram not working.Will see about another order.Urine was sent to lab.Will reassess.[facility] [id number] NoteLemuel Shattuck HospitalZamzpazy90-16-5758 Miscellaneous Notes* Telephone Encounter - Li Kimball RN - 11/16/2022 11:51 AM EDT Patient called and states she continues to have abdominal pain and is asking for a Tramadol prescription. Patient also asking for IV fluids as her fluid intake is still not normal. Li Kimball RN documented in this encounterOhiohealth O'Bleness Hospital09-29-2023 NoteHNO ID: [id number] Author: Pablo Lebron PSYD Service: ? Author Type: Psychologist Type: Progress Notes Filed: 11/13/2022 8:36 AM Note Text: Assessment was conducted over the phone due to pt's technical difficulties. Patient is a resident of [place], and completed the assessment over the phone in [place]. Psychologist is licensed and stationed in [place]. Informed consent was discussed and verbal assent [...] Focused Psychotherapy, Supportive Therapy PROGRESS TO DATE: Halfway Progress: Stable Short Term Condition: Stable GOALS/OBJECTIVES/INTERVENTIONS: To identify and implement tools for effectively managing symptoms of anxiety, stress, and low mood. Approximately 40 minutes were spent with the patient doing therapy. Pablo Lebron [facility]09-28-2023 [facility]09-28-2023 NoteLemuel Shattuck HospitalGppanszq36-11-9754 NoteLemuel Shattuck HospitalVfdrooew07-79-6599 History of Past illness Narrative* Problem Noted [...] of this encounter (statuses as of 04/07/2023) [facility]09-27-2023 History of Past illness [...] of this encounter (statuses as of 05/05/2023) [facility]27[facility] History of Past illness [...] of this encounter (statuses as of 05/07/2023) [facility] History of Past illness [...] of this encounter (statuses as of 05/10/2023) [facility] History of Past illness [...] of this encounter (statuses as of 05/18/2023) [facility] History of Past illness [...] of this encounter (statuses as of 05/27/2023) [facility] History of Past illness [...] of this encounter (statuses as of 05/28/2023) [facility] History of Past illness [...] of this encounter (statuses as of 05/28/2023) [facility] History of Past illness [...] of this encounter (statuses as of 05/30/2023) [facility] History of Past illness [...] of this encounter (statuses as of 06/02/2023) [facility]09-26-[facility]23 NoteUniversity [facility]23 Miscellaneous Notes* Telephone Encounter - Li Kimball RN - 11/09/2022 4:40 PM EDT Patient notified that surgery has to be moved to Wednesday as gastroenterology is no longer available to assist. I encouraged the patient to come to [place] ED if pain worsens or she develops an newor other concerning symptoms. Patient stated understanding and had no further questions. Li Kimball RN documented in this encounterOhiohealth O'[facility]09-23-2023 [facility] 11-06-2022 Miscellaneous Notes* Telephone Encounter - Li [...] within 10-15 minutes. Patient remains admitted to [facility] and is scheduled for a HIDA scan [...] RN documented in this encounterOhiohealth O'[facility]09-22-2023 [facility] 11-06-2022 [facility] [id number] History of Present illness Narrative* Agustin Sheets, [...] found usingthis link: [email or web address] SIGNATURE: RT Oj(Gregory) PATIENT NAME: Abbey Garcia DATE: November 06, 2022 TIME: 10:54 AM PAGER/CONTACT #: documented in this encounterOhiohealth O'[facility]09-20-2023 History of Present illness Narrative* Deacon [...] healthy appearing mucosa. This was traversed. The adrbo-yg-gwnudvx limb was characterized by healthy appearing mucosa. [...] YELLOW YELLOW APPEARANCE, URINE CLEAR CLEAR Specific [place], Urine 1.010 - 1.025 1.020 PH URINE [...] Kat MD documented in this encounterOhiohealth O'[facility]09-20-2023 NoteUniversity Hospitals [facility]09-18-2023 Miscellaneous Notes* Telephone Encounter - [...] [facility] * Dayanara Montana RN - 11/02/2022 11:55 AM EDT Pt states that her pain is getting worse along with her nausea [facility]09-18-2023 Emergency department Note* Dayanara Montana [...] CT scans showing possible kidney stones near [facility], here today because hands turned brown) JANINE Garcia is a 32 y.o. female who presents with abdominal pain. Patient has had multiple weeks of abdominal pain. She has had multiple ER visits in [facility]. She had multiple CT scans with no [...] gastric bypass surgeon. Dimitri Walker MD 11/02/22 9233 documented in this encounterAd[facility] Emergency department Note* Dayanara Montana RN - 11/02/2022 11:44 AM EDT Pt requesting to use the restroom and wants assistance. Stand by assist given pt walk with a slow steady gait at this time without difficulty [facility]09-18-2023 Physician Emergency department Note* Dimitri Walker MD - 11/02/2022 10:55 AM EDT DEPARTMENT OF EMERGENCY MEDICINE CHIEF COMPLAINT Abdominal Pain (Reports has been seen a couple of times with CT scans showing possible kidney stones near [facility], here today because hands turned brown) JANINE Garcia is a 32 y.o. female who presents with abdominal pain. Patient has had multiple weeks of abdominal pain. She has had multiple ER visits in [facility]. She had multiple CT scans with no [...] bypass surgeon. Dimitri Walker MD 11/02/22 1325 [facility]09-16-2023 Hospital Discharge instructions* Discharge Instructions* [...] sent through Care Everywhere. * Back: Strain (Turkmen) documented in [facility] encounterB[facility] 10-26-2022 [facility] [id number] History of Past illness Narrative* Problem Noted [...] (statuses as of 11/10/2022) [facility]09-10-2023 [facility] [id number] Miscellaneous Notes* Telephone Encounter - Li Kimball RN - 10/20/2022 2:57 PM EDT I spoke to the patient and reviewed her schedule and testing procedures. I also reviewed the Carafate prescription. Patient stated understanding and had no further questions. iL Kimball RN * Telephone Encounter - [...] nausea vomiting and pain return call to [phone] documented in this encounterOhiohealth O[facility]09-05-2023 Hospital [...] medicines. These include steroids, antibiotics, and some vujh-ttz-vuculmc medicines, such as aspirin or ibuprofen. Having [...] Follow these instructions at home: Medicines Take juje-div-agaqlks and prescription medicines only as told by [...] provider. Document Revised: 06/07/2021 Document Reviewed: 06/07/2021 App[employer] Patient Education 2022 [employer]. 10/20/2022 12:40:07 Abdominal Pain, Adult Abdominal Pain, [...] Follow these instructions at home: Medicines Take uktb-bqx-hckxart and prescription medicines only as told by [...] Watch your condition for any changes. Take vgia-udk-gvipawb and prescription medicines only as told by [...] provider. Document Revised: 03/22/2020 Document Reviewed: 06/12/2019 App[employer] Patient Education 2022 [employer] Follow Up Care 10/20/2022 08:06:19 With:Jaquan Morrow Address: [address] [place] [address] Business (1) When:10/23/2022 12:06:27 [place] [address]-04-2023 Evaluation + Plan noteExtracted from: Title:ED Note Author:Earnest Jett DO Date:10/19 Abdominal pain (R10.9: Unspe cified abdominal pain) Ordered: acetaminophen-oxycodone, 1 tab(s), Oral, q6hr for 3 day(s), 10 tab(s), Refill(s) 0, [facility]/pharmacy #[id number], 168, cm, 10/19/22 8:44:00 EDT, [...] nausea, # 10 tab(s), Refills(s) 0, Pharmacy: [facility]/pharmacy #[id number], 168, cm, 10/19/22 8:44:00 EDT, [...] QID, # 280 mL, Refills(s) 0, Pharmacy: [facility]/pharmacy #[id number], 168, cm, 10/19/22 8:44:00 EDT, Height/Length Dosing, 85.6, kg, 10/19/22 8:44:00 EDT, Weight Dosing Automated Diff Basic Metabolic Panel CBC w/ Auto Diff eGFR Extra Blue Tube Extra SST Tube Hepatic Function Panel Lipase Level TSH With T4fr Reflex UA With Cult Reflex XR Chest 2 Views Future Appointments Appointment Date:11/20/2022 02:40:00 PM Scheduled Provider: [facility] Appointment Type:FM Lab Draw Appointment Date:01/20/2023 10:00:00 AM Scheduled Provider:Rajni Rouse MD Location:[facility] Appointment Type:URO Office Visit Future Scheduled Tests Laboratory* T3 Free 10/07/22 * Thyroid Stimulating Hormone 10/07/22 * Free T4 10/07/22 Radiology* US Renal 06/10/22 [facility]09-04-2023 Hospital Discharge instructions Follow Up Care 10/19/2022 08:31:02 With:Jon Rivera Address: [address] [place] [phone]- [phone] Business (1) When:10/22/2022 13:40:06 With:Your GI physician Address:Unknown When:10/22/2022 13:40:01 With:Jaquan Morrow Address: [address] [place] [phone]- Business (1) When:Within 3 Day(s) [facility]08-31-2023 Miscellaneous Notes* Telephone Encounter - Ria Roberts [...] in this encounterOhiohealth O[facility]08-21-2023 NoteHNO ID: [id number] Author: Pablo Lebron PSYD Service: ? Author Type: Psychologist Type: Progress Notes Filed: 10/05/2022 3:51 PM Note Text: Assessment was conducted over the phone due to pt's technical difficulties. Patient is a resident of [place], and completed the assessment over the phone in [place]. Psychologist is licensed and stationed in [place]. Informed consent was discussed and verbal assent [...] Focused Psychotherapy, Supportive Therapy PROGRESS TO DATE: Nurse Licensed Practical Progress: Stable Short Term Condition: Stable GOALS/OBJECTIVES/INTERVENTIONS: To identify and implement tools for effectively managing symptoms of anxiety, stress, and low mood. Approximately 45 minutes were spent with the patient doing therapy. [facility] History of Present illness Narrative* Pablo Lebron [facility] - 10/05/2022 3:07 PM EDT Assessment was conducted over the phone due to pt's technical difficulties. Patient is a resident of [place], and completed the assessment over the phone in [place]. Psychologist is licensed and stationed in [place]. Informed consent was discussed and verbal assent [...] Focused Psychotherapy, Supportive Therapy PROGRESS TO DATE: Nurse Licensed Practical Progress: Stable Short Term Condition: Stable GOALS/OBJECTIVES/INTERVENTIONS: To identify and implement tools for effectively managing symptoms of anxiety, stress, and low mood. Approximately 45 minutes were spent with the patient doing therapy. Pablo Lebron PsyD documented in this encounterOhiohealth O'[facility]08-14-2023 Instructions* Patient Instructions* Xiomara Martinez, RD - 09/28/2022 8:19 AM EDT 1. [...] Fusion multivitamin soft chews and calcium citrate 4739-6160 mg/day(3 soft chews), and continue Probiotic drink [...] should last 30 minutes. 7. Aim for 4429-1593 calories and 75-100 gm carbs per day Nutrition Monitoring & Evaluation: Maintain BMI < 30 Need for Follow up: 4 months, for conversion anniversary - [phone] documented in this encounterOhiohealth O'[facility]08-14-2023 History of Present illness Narrative* Xiomara Martinez RD - 09/28/2022 8:00 AM EDT [facility] Nutrition Therapy: Virtual Consult - Re-assessment I have communicated my name and active licensure. The patient s identity and physical location wereverified at the time of this visit. Either the patient or their legal retail customer service representative has been informed of the [...] Fusion multivitamin soft chews and calcium citrate 3453-5189 mg/day(3 soft chews), and continue Probiotic drink [...] should last 30 minutes. 7. Aim for 9657-4741 calories and 75-100 gm carbs per day Nutrition Monitoring & Evaluation: Maintain BMI < 30 Need for Follow up: 4 months, for conversion anniversary - [phone] PROGRESS: Interval History: Patient presents for follow [...] the day. Recently started tracking intake on [employer] bre. Consistent, but likely insufficient protein intake. Following Phase 5 diet currently. 1155-4008 calories/day - meeting low-end needs 60-70 gm protein intake/day - falling below recommendations 60-90 oz fluid intake/day - meeting needs Taking all vitamin/minerals, however insufficient calcium citrate. Labs reviewed, unremarkable. Resting Metabolic Rate:1557 Energy needs for weight loss 0977-8252 (15-20 carina/kg current weight) Protein needs: 85 [...] Fusion One a Day multivitamin capsule PLUS 6771-1960 mg calcium citrate 5. Exercise: strive for [...] Garcia DATE: 09/28/2022 TIME: 7:48 AM PAGER: [phone] documented in this encounterOhiohealth O'[facility]08-14-2023 NoteUniversity Hospitals Ahuja [facility] Center08-07-2023 NoteHNO ID: [id number] Author: Pablo Lebron PSYD Service: ? Author Type: Psychologist Type: Progress Notes Filed: 09/22/2022 12:47 PM Note Text: Assessment was conducted over the phone due to pt's technical difficulties. Patient is a resident of [place], and completed the assessment over the phone in [place]. Psychologist is licensed and stationed in [place]. Informed consent was discussed and verbal assent [...] importance of working outside house; balance). 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 Animosity from and mom (not enough time at home). Hurt by mom's words wants to communicate, she internalizes. Marital therapy? Appreciative of family help with kids. Sources of support (brother and nvyrsn-cg-tnt), close friend High anxiety and panic attacks [...] Focused Psychotherapy, Supportive Therapy PROGRESS TO DATE: Halfway Progress: Stable Short Term Condition: Stable GOALS/OBJECTIVES/INTERVENTIONS: To identify and implement tools for effectively managing symptoms of anxiety, stress, and low mood. Approximately 45 minutes were spent with the patient doing therapy. Pablo Lebron [facility]08-07-2023 History of Present illness Narrative* Pablo Lebron, [facility] - 09/21/2022 2:04 PM EDT Assessment was conducted over the phone due to pt's technical difficulties. Patient is a resident of [place], and completed the assessment over the phone in [place]. Psychologist is licensed and stationed in [place]. Informed consent was discussed and verbal assent [...] importance of working outside house; balance). 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 Animosity from and mom (not enough time at home). Hurt by mom's words wants to communicate, she internalizes. Marital therapy? Appreciative of family help with kids. Sources of support (brother and cdiloj-hj-sgr), close friend High anxiety and panic attacks [...] Focused Psychotherapy, Supportive Therapy PROGRESS TO DATE: Nurse Licensed Practical Progress: Stable Short Term Condition: Stable GOALS/OBJECTIVES/INTERVENTIONS: To identify and implement tools for effectively managing symptoms of anxiety, stress, and low mood. Approximately 45 minutes were spent with the patient doing therapy. Pablo Lebron PsyD documented in this encounterOhiohealth O'[facility]08-04-2023 History of Present illness Narrative* Breanna Stern APRN.REAL ESTATE AGENT - 09/18/2022 3:14 PM EDT BMI SURGERY [...] Total weight loss: 11.3 kg (25 lb) [place] weight: 70.3 kg (154 lb 14.5 oz) Excess weight: 24.5 kg (54 lb 1.5 oz) % of excess body weight lost: 11.3 kg (25 lb) (46.22% of excess weight loss) COMPLICATIONS SINCE LAST VISIT?: NONE EGD 06/23/22 Findings: The examined esophagus was normal. 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 The gastrojejunal anastomosis was characterized by healthy appearing mucosa. This was traversed. The klnxy-lb-pffrxik limb was characterized by healthy appearing mucosa. [...] 40 f bougie). This was traversed. The pgpfh-ez-fgesodt limb was characterized by healthy appearing mucosa. [...] this encounterOhiohealth O'[facility]06-14-2023 Hospital Discharge instructions Follow Up Care 07/29/2022 09:18:39 With:Nasim JOHNSON, YUMIKO Lamar, URO Address: [address] [place] [address]- [phone] When: Unknown [facility] 06-14-2023 Hospital Discharge instructions Patient [...] include: ?8 oz (237 mL) of milk, vtinylr-kocgrwdzioic-mfylu milk, and calcium- fortifiedfruit juice. Calcium-fortified means [...] ?Spinach (cooked), rhubarb, beets, sweet potatoes, and Azerbaijani chard. ?Peanuts. ?Potato chips, estonian fries, and baked potatoes with skin on. ?Nuts and nut products. ?Chocolate. If you regularly take a diuretic medicine, make sure to eat at least 1 or 2 servings of fruits or vegetables that are high in potassium each day. These include: ?Avocado. ?Banana. ?Carver, prune, carrot, or tomato juice. ?Baked potato. [...] magnesium, fish oil, or vitamin B6. Take akja-vaz-cuwxbph and prescription medicines only as told by [...] Casseroles. Pizza. Lasagna. Frozen meals. Potato chips. Tajik fries. The items listed above may not [...] provider. Document Revised: 10/13/2021 Document Reviewed: 10/13/2021 [employer] Patient Education 2022 [employer]. Follow Up Care 06/30/2022 09:39:02 With:Nasim JOHNSON, YUMIKO Lamar, URO Address: When: Unknown [facility] 06-13-2023 Instructions* Patient Instructions* Samara [...] [facility] of Present illness Narrative* Samara Evans MD - 07/28/2022 1:00 PM EDT EST PATIENT CHIEF COMPLAINT: Rash HISTORY OF PRESENT ILLNESS: Patterson M Jose is a 32 year old female with [...] Past Histories independently gathered by the clinical mission support specialist, and the remaining scribed note [...] visit. Samara Evans MD documented in this encounterOhiohealth O'[facility]len[facility]06-08-2023 [...] denying [employer] authorization Full letter scanned in [facility] for review Grecia Wallace * Telephone [...] & admissions, and go from there. Linda Hale, RN * Telephone Encounter - Grecia Velasquez [facility] - 07/23/2022 8:49 AM EDT Fax received from [facility] to notify [employer] not covered, will need PA or prescribe alternative: Linzess, Trulance or Amitza Fax scanned in [facility] Grecia Velasquez [facility] documented in this encounterOhiohealth O'[facility]06-07-2023 History of Present illness Narrative* Donnie [...] with cornea provider or optom- closer to [place] - Will sendmessage Return precautions were discussed in detail Plan reviewed with the patient who verbalizes understanding Donnie David MD Ophthalmology Resident documented in this encounterOhiohealth O'[facility]len[facility]06-07-2023 History of Present illness Narrative* Kasie [...] lesion. Mild degenerative changes. Lower thorax: Unremarkable. Comfort Station Attendant (topogram) images: No additional findings. CT ABD/PEL [...] Tissues: No acute abnormality. Lower thorax: Unremarkable. Comfort Station Attendant (topogram) images: No additional findings. US ABD [...] healthy appearing mucosa. This was traversed. The fkzls-vo-fxvpvrt limb was characterized by healthy appearing mucosa. [...] 40 f bougie). This was traversed. The wkwpa-hk-qwkstjb limb was characterized by healthy appearing mucosa. [...] ceroid-laden histiocytes. There is no interface activity. [place] bile duct branches are identified in nearly [...] - Colonic mucosa with no diagnostic alteration. DINA/va 04/10/2020 Hemoglobin (g/dL) Date Value 06/22/2022 13.4 [...] 22, 2022 documented in this encounterOhiohealth O'Bleness Hospital05-06-2023 History of Past illness Narrative* [...] (statuses as of 12/21/2022) [facility]05-04-2023 History of Present illness Narrative* Aliyah [...] advised she may send a message on [place] if she has any additional questions. Aliyah Washburn PA-C Orthopaedic & Rheumatologic [facility] Date: June 18, 2022 Time: [...] Glands: No documented in this encounterOhiohealth O'Blen[facility] Hospital04-28-2023 History of Present illness Narrative* Aliyah Washburn PA-C - 06/12/2022 10:26 AM EDT Images from the original note were not included. Rheumatology Outpatient Clinic Date of Service: 06/12/2022 Patient: Abbey Garcia Medical Record: [id number] Primary Care Physician: Wally Foley MD Last Rheumatology visit: [facility] Referring Provider: HENNY Marcus [address] [facility] [address] Consultation requested by Agustin Valentino for an [...] hypothyroidism. Reports she has not seen her transporter radiology recently. She reports symptoms are interrupted by [...] 2 Antichromatin nega <0.2 RF negative <10 INTERNATIONAL RELATIONS PROFESSOR 0.3 SSA <0.2 SSB <0.2 Mc <0.2 [...] symmetric on resisted finger separation and hand rater associate Knees FROM Ankles FROM No MTP squeeze [...] insufficiency and hypothyroidism. She has not seen transporter radiology. Would like to rule out endocrine causes [...] which included preparing to see the patient, uqbi-hw-iygt patient care, completing clinical documentation, obtaining and/or reviewing separately obtained history, performing a medically appropriate examination, counseling and educating the pat ient/family/caregiver, and ordering medications, tests, or procedures. Aliyah Washburn PA-C [facility] Date: June 12, 2022 Time: [...] you until you feel stable. Medicines Take ruus-ims-ynnwmkn and prescription medicines only as told by [...] provider. Document Revised: 06/12/2021 Document Reviewed: 06/12/2021 App[employer] Patient Education 2022 [employer]. 06/10/2022 17:05:57 Nonspecific Chest Pain, Adult Nonspecific [...] Follow these instructions at home: Medicines Take rett-tbf-iyespnd and prescription medicines only as told by [...] provider. Document Revised: 04/17/2021 Document Reviewed: 04/17/2021 [employer] Patient Education 2022 [employer]. Follow Up Care 06/10/2022 12:31:10 With:Chetna Jack Address: [address] [place] [address]- [phone] Business (1) When:06/13/2022 17:03:30 Comments:Schedule event loop recorder as well as echocardiogram with central scheduling and then follow-up with lighting specialist Dr. Jack With:Jaquan Morrow Address: [address] [place] [phone]- Business (1) When:06/13/2022 17:03:46 Comments:Call the office [...] you develop any new or worsening symptoms. [facility]01-20-2023 Nurse Note* Eli Carter RN - 03/06/2022 [...] 1:45 arrival time for 2:45 appointment at [facility]. Victor M Dennis * Telephone Encounter - Li Kimball RN - 03/05/2022 10:31 AM EST I called patient and left a message with EGD appointment instructions and location. Call back number provided. Li Kimball RN documented in this encounterOhiohealth O'Blen[facility] Hospital01-19-2023 Instructions* Patient Instructions* Breanna Stern APRN.CNP [...] Total weight loss: 19.1 kg (42 lb) [place] weight: 70.3 kg (154 lb 14.5 oz) [...] lateral patellar facet. Bilateral PF crepitance IMPRESSION: (S73.091X) Acetabular labrum tear, right, subsequent encounter (primary encounter diagnosis) PLAN: 1. Medication: None. 2. Test(s)/Imaging/Referral(s): None. 3. Intervention: Continue conservative treatment. Objectively, patients hip is doing well post op. She has been dealing with a right knee injury as well (images were uploaded in the system today). She saw a provider in the [place] area who recommended her have an osteotomy. [...] Past Histories independently gathered by the clinical mission support specialist and the remaining scribed note [...] DADA - 02/04/2022 9:24 AM EST [facility] [...] Fusion One a Day multivitamin capsule PLUS 0272-4739 mg calcium citrate daily) 4. Protein goal: 75-93 grams protein/day. 5. Fluid goal: 64oz per day water. (no calories, no caffeine, no carbonation, no alcohol) 6. Call the BMI department at [phone] to schedule your one month post op [...] Fusion One a Day multivitamin capsule PLUS 7963-8282 mg calcium citrate 5. Exercise: strive for [...] Garcia DATE: 02/04/2022 TIME: 9:24 AM PAGER: [phone] documented in this encounterOhiohealth O'Bleness Hospital12-20-2022 Instructions* [...] Total weight loss: 15.4 kg (34 lb) [place] weight: 70.3 kg (154 lb 14.5 oz) [...] 1 month post op visit. Breanna Stern APRN.REAL ESTATE AGENT documented in this encounterOhiohealth O'Bleness Hospital12-20-2022 Nurse [...] on pain medication. Patients pharmacy is the [facility] in [place]. Contact# [phone] documented in this encounterOhiohealth O'Bleness Hospital12-14-2022 History and physical note * Ioana [...] Bilateral arthroscopic knee surgery- was catcher in [email or web address] PAST SURGICAL HISTORY OF 08/2020 gastric sleeve [...] fevers. Neuro: No history of TIA's, stroke, OCC MED PHYSICIAN tumor, impaired sensorium, hemiplegia, paraplegia or quadraplegia. No neurological symptoms or problems. Respiratory: +RICHAR, asthma Negative for COPD, Current cough, Dyspnea, Home O2, Pneumonia within 6 weeks (date), Wheezing Cardiovascular: +hx HTN during /post , resolved. Negative for Recent CO, Angina, CAD, Chest Pain, CHF, DVT/PE GI: [...] for your procedure at this surgery center: [facility]: [phone] --[address] [address]. Please check in on the1st floor at [...] Procedures: - YOU MUST HAVE A RESPONSIBLE PRESCHOOL ASSOCIATE TEACHER TAKE YOU HOME. A VALUER OR POSITION CLASSIFIER CANNOT BE MADE A RESPONSIBLE PRESCHOOL ASSOCIATE TEACHER. - We recommend that a responsible person stays with you overnight to take care of you. - You cannot stay in a hotel alone after outpatient surgery. You will not be permitted to have yoursurgery, if you do not have someone to take care of you. If you already have an Advance Directive, please fax a copy to [phone] or email to for it to be [...] [facility] Inst[facility]* Patient Instructions* Sabina Joy APRN.BETH - 01/02/2022 11:29 AM EST Images from the original note were not included. Mutually Agreed Upon Goals Eating Plan: FriendFeed Pal BRE - Log intake 2 days [...] - Mindful Moments by [facility] EasyPaint. [place]. Insight Timer https://www.Varsity Optics/health/mental-health/iic-vcfpxgtxop-pxahih-android-ap ps#our-picks How can I fix my acid [...] but are usually stronger and faster than [id number]. Dietary habits for acid reflux Reduce or [...] Try Breakfast: 1 scrambled egg (75 calories) Turkmen muffin (67 calories) Calories per meal: 142 AM Snack & Fluids: *Spread out and sipped between meals 2 cups water (0 calories) 1 cup skim milk or unsweetened soy milk (90 calories) Calories per meal: 90 Lunch: 4 oz canned tuna in water (100 calories) 2 Tbsp fat free ortiz (20 calories) 1 slice low fat Azerbaijani cheese (50 calories) 1 slice whole grain [...] after gastric sleeve surgery? (Full meal plan) (ProPublica.everyArt) .kml documented in this encounterOhiohealth O'[facility]11-18-2022 [...] weight loss: 35 lbs or 14.58 % [place] weight: 70.3 kg (154 lb 14.5 oz) [...] No current facility-administered medications for this visit. [facility] OBESITY MEDICINE COMORBIDITIES: Obstructive Sleep Apnea Sleep [...] which included preparing to see the patient, nmld-[id number] patient care, completing clinical documentation, obtaining and/or [...] 01/01/2022 2:41 PM EST 2Name: Abbey Garcia [facility]#: [id number] Date: 01/01/2022 HUERTA 48 HR PH FOLLOW-UP The HUERTA monitor was received today via [employer] transport.. Test data from the timber management specialist was downloaded. Events from the patient diary were inserted into the study for physician review. .Marisabel Lynn LPN documented in this encounterOhiohealth O[facility]11-10-2022 History of Present illness Narrative* Marisabel Lynn LPN - 12/25/2021 11:28 AM EST Name: Abbey Garcia CC#: [id number] Date: 12/25/2021 48hr HUERTA PH CAPSULE PLACEMENT Indications: GERD Testing off meds - , Pepcid (famotidine) 20 mg , once daily The SCJ was visualized and verified during endoscopy. A HUERTA pH capsule was attached to the esophagus per protocol by Britt Bradshaw MD. Attachement was confirmed by a 2nd [...] Esophagus and EsophagealAdenocarcinoma IRB# [id number] PI: Britt Bradshaw M.D. Date of Consent: 12/25/2021 Consent obtained by: Giselle Ford MD A copy of the consent form was given to the consenting libertarian and ample time was provided for review. Extensive overview of the study was presented to the individuals above. Potential risks/benefits were reviewed. Alternatives (non-participation) were explained. All questions were answered and understanding was verbalized. The patient wished to proceed. A signed and dated copy of the informed consent was provided to the consenting libertarian. Mateusz Kraft Research Coordinator documented in this encounterOhiohealth O[facility]10-05-2022 Miscellaneous Notes* Telephone Encounter - Li Kimball RN - 11/19/2021 10:57 AM EDT I called the patient and left a message for the patient to call [phone], option 0 to schedule the pH Impedence [...] mcg, Iron 45-60 mg and calcium citrate 0118-7590 mg/day PHYSICAL EXAMINATION General appearance: Well appearing, [...] the date of the service which included [id number]-[id number] patient care, completing clinical documentation, obtaining and/or [...] Grecia Wallace documented in this encounterOhiohealth O'[facility]09-06-2022 Miscellaneous [...] between 4:15-5:30 PM or on 10/22 in [place] between 4-6 PM. Do not double book slots. documented in this encounterOhiohealth O'[facility]len[facility]08-25-2022 Instructions* Patient Instructions* Sabina Joy APRN.BETH - 10/09/2021 3:56 PM EDT Images from the original note were not included. Mutually Agreed Upon Goals Eating Plan: FriendFeed Pal BRE - Log intake 7 days per week. Replace skipped meals with a protein supplement. Bariatric Plate Method Activity: Walking as tolerated. Chair exercises Sleep: No electronic for 30 minutes prior to sleep 2 nights per week. Practice Sleep Hygiene. CPAP nightly Stress: BRE for meditation - Mindful Moments by [facility] Wellness. Insight Timer https://www.Kenzei.everyArt/health/mental-health/gdw-gwrwkmaoct-qunmnb-android-ap ps#our-picks Steps to Follow Bariatric Plate Total [...] own fruit infused price >> lemon or [place]ut[place] with oranges, blackberries, strawberries and fresh mint, [...] with food. Calcium Citrate with Vitamin D 1391-5407 mg calcium - DO NOT TAKE WITH [...] 32.28 kg/(m^2) Total weight loss: 42 lbs [place] weight: 70.3 kg (154 lb 14.5 oz) [...] which included preparing to see the patient, lwto-ce-tbrf patient care, completing clinical documentation, obtaining and/or reviewing separately obtained history, performing a medically appropriate examination, counseling and educating the pat ient/family/caregiver, ordering medications, tests, or procedures, independently interpreting results (not separately reported), and communicating results to the patient/family/caregiver. Medical Decision Making: Level: 1 - N/A Sabina Joy APRN.BETH documented in this encounterOhiohealth O'[facility]len[facility]07-16-2022 Hospital Discharge instructions* Discharge Instructions* Pablo Atwood DO - 08/30/2021 4:11 AM EDT Please take all medications as prescribed and follow-up with your oral surgeon on Wednesday as scheduled. * Attachments The following attachments cannot be sent through Care Everywhere. * Tooth: Abscessed (Turkmen) documented in this encounterBON BANNER [facility] MEDICAL CENTERPartSimple Work Phone: [phone]) 587-299607-15-2022 Miscellaneous Notes* Telephone Encounter - Justine Shabazz [...] and video enabled technology. Distance Health Platform: Avidia Virtual Visit People present : Justine Shabazz [...] Nica Shabazz, MS, PA-C documented in this encounterOhiohealth O'Bleness Hospital07-14-2022 Instructions* Patient Instructions* Xiomara Martinez RD [...] Fusion One a Day multivitamin capsule PLUS 4695-4860 mg calcium citrate 5. Exercise: strive for [...] [facility]07-14-2022 History of Present illness Narrative* Xiomara Martinez, RD - 08/28/2021 7:54 AM EDT The [...] Fluids: water (64 oz), gatorade zero, Body Weinert light Exercise: limited to PT due to [...] Rate: 1635 Energy needs for weight loss 3593-9645 (15-20 carina/kg current weight) Protein needs: 75-93 [...] Fusion One a Day multivitamin capsule PLUS 8607-4044 mg calcium citrate 5. Exercise: strive for [...] PTSD (post-traumatic stress disorder) (ICD-10 - F43.10) [employer] Other [id number] Miscellaneous Notes* Telephone Encounter - Grecia Wallace - 08/22/2021 10:40 AM EDT Pharmacy fax requesting refills as follows: patient has a follow up visit 09/24/21 Pending Prescriptions Disp Refills OMEPRAZOLE 40 MG CAPSULE,DELAYED RELEASE 60 capsule 0 Sig: Take 1 capsule by mouth twice daily. ELIJAH: No Please review and advise. Grecia [facility] Electronically signed by Grecia Velasquez [facility] at 08/22/2021 10:41 AM EDT documented in this encounterOhiohealth O'[facility]leness Hospital07-03-2022 Evaluation [...] system will be more sensitive than normal. [employer] Other [id number] Miscellaneous Notes* Telephone Encounter - Justine Shabazz [...] this virtual visit and video enabled technology. OneID Health Platform: [employer] Zoom Virtual Visit People present : Justine Shabazz PA-C and Patient Time Spent for video encounter, record review and documentation: 15 minutes CHIEF COMPLAINT (CC): Post op right hip HISTORY OF PRESENT ILLNESS (HPI): 3 weeks s/p 1. right hip arthroscopy. 2. Acetabuloplasty CPT 90759 3. Labral repair. CPT 97607 4. Femoroplasty. CPT 50409 5. Capsular Closure DOS: 08/10/21 Denies systemic [...] will review MRI right knee (uploaded in EPIC). She has been referredto physician in [place] and was recommended to have osteotomy, she [...] hip arthroscopy with Dr Yousif 07/10/21 at [facility]. Discussion to ensure optimized for surgery Data Reviewed: Procedure: verified - questions answered Consent: in [facility] - not signed Imaging: outside MR an XR in [facility] with report scanned - views sufficient [...] must be done in radiology at the [facility] to ensure correct views.) Brace fitting: Yes - ( hip brace fit with DJO Rep at [facility]) Pre op PT visit required for [...] up) No. Pre op instructions sent via [place]. DONAVAN Douglas documented in this encounterOhiohealth O'Bleness Hospital05-04-2022 History of Present illness Narrative* Kuldip Yousif MD - 06/18/2021 11:00 AM EDT x * Kuldip Yousif MD - 06/18/2021 10:23 AM EDT Images from the original note were not included. DEPARTMENT OF ORTHOPAEDICS Consultation as a request of Shanna June NP [address] [facility] [address] Chief Complaint: Right hip pain HISTORY OF [...] Bilateral arthroscopic knee surgery- was catcher in [facility] LINE INSERT/CONSULT 12/24/2020 VAGINAL DELIVERY AFTER DELIVERY [...] No history of dysuria, frequency or incontinence GROCERY CLERK MARKING: Negative for abnormal vaginal bleeding, abnormal vaginal [...] Scribe Attestation: By signing my name below, Jace Saunders, AT, attest that this documentation has been preparedunder the direction and in the presence of Kuldip Yousif M.D. Electronically Signed:DONAVAN Douglas, June 18, 2021 10:23 AM I agree with the Chief Complaint, ROS, and Past Histories independently gathered by the clinical mission support specialist and the remaining scribed note [...] affect knee History of Present Illness Abbey Garcai is a 31 y.o. female, who presents [...] to that time. [facility] note * Encounter Date Diagnosis [...] intake. Mar, Other Asthma material was printed [employer] Other 12-14-2021 Evaluation note* Encounter Date Diagnosis [...] to be seen. Also always know the [facility] Emergency Number is 24 [...] surgeon after discussing options and treatment locations. [employer] Other [id number] History of Past illness Narrative* Problem Noted [...] of this encounter (statuses as of 07/09/2021) [facility] History of Past illness Narrative* Problem Noted Date Resolved Date Obesity 09/03/2020 11/29/2020 Abdominal pain 02/01/2020 04/08/2020 Moderate episode of recurrent major depressive d isorder 11/21/2019 01/03/2020 Obesity, Class II, BMI 35-39.9 10/13/2019 1 Last Assessment & Plan: Assessment: BMI 38.74 documented as of this encounter (statuses as of 07/15/2021) [address]20-2021 History of Past illness Narrative* Problem Noted Date Resolved Date Obesity 09/03/2020 11/29/2020 Abdominal pain 02/01/2020 04/08/2020 Moderate episode of recurrent major depressive d isorder 11/21/2019 01/03/2020 Obesity, Class II, BMI 35-39.9 10/13/2019 1 Last Assessment & Plan: Assessment: BMI 38.74 documented as of this encounter (statuses as of 07/28/2021) [address]20-2021 History of Past illness Narrative* Problem Noted Date Resolved Date Obesity 09/03/2020 11/29/2020 Abdominal pain 02/01/2020 04/08/2020 Moderate episode of recurrent major depressive d isorder 11/21/2019 01/03/2020 Obesity, Class II, BMI 35-39.9 10/13/2019 1 Last Assessment & Plan: Assessment: BMI 38.74 documented as of this encounter (statuses as of 08/01/2021) [address]20-2021 History of Past illness Narrative* Problem Noted Date Resolved Date Obesity 09/03/2020 11/29/2020 Abdominal pain 02/01/2020 04/08/2020 Moderate episode of recurrent major depressive d isorder 11/21/2019 01/03/2020 Obesity, Class II, BMI 35-39.9 10/13/2019 1 Last Assessment & Plan: Assessment: BMI 38.74 documented as of this encounter (statuses as of 08/14/2021) [address]20-2021 History of Past illness Narrative* Problem [...] of this encounter (statuses as of 08/28/2021) [address]20-2021 History of Past illness Narrative* Problem Noted Date Resolved Date Obesity 09/03/2020 11/29/2020 Abdominal pain 02/01/2020 04/08/2020 Moderate episode of recurrent major depressive d isorder 11/21/2019 01/03/2020 Obesity, Class II, BMI 35-39.9 10/13/2019 1 Last Assessment & Plan: Assessment: BMI 38.74 documented as of this encounter (statuses as of 08/29/2021) [address]20-2021 History of Past illness Narrative* Problem Noted Date Resolved Date Obesity 09/03/2020 11/29/2020 Abdominal pain 02/01/2020 04/08/2020 Moderate episode of recurrent major depressive d isorder 11/21/2019 01/03/2020 Obesity, Class II, BMI 35-39.9 10/13/2019 1 Last Assessment & Plan: Assessment: BMI 38.74 documented as of this encounter (statuses as of 08/29/2021) [address]20-2021 History of Past illness Narrative* Problem [...] of this encounter (statuses as of 01/06/2022) [facility] History of Past illness [...] of this encounter (statuses as of 02/02/2022) [address]20-2021 History of Past illness Narrative* Problem [...] of this encounter (statuses as of 02/04/2022) [facility] History of Past illness Narrative* Problem Noted Date Resolved Date Obesity 09/03/2020 11/29/2020 Abdominal pain 02/01/2020 04/08/2020 Moderate episode of recurrent major depressive d isorder 11/21/2019 01/03/2020 Obesity, Class II, BMI 35-39.9 10/13/2019 1 Last Assessment & Plan: Assessment: BMI 38.74 documented as of this encounter (statuses as of 02/06/2022) [facility] History of Past illness Narrative* Problem Noted Date Resolved Date Obesity 09/03/2020 11/29/2020 Abdominal pain 02/01/2020 04/08/2020 Moderate episode of recurrent major depressive d isorder 11/21/2019 01/03/2020 Obesity, Class II, BMI 35-39.9 10/13/2019 1 Last Assessment & Plan: Assessment: BMI 38.74 documented as of this encounter (statuses as of 02/15/2022) [facility] History of Past illness Narrative* Problem Noted Date Resolved Date Obesity 09/03/2020 11/29/2020 Abdominal pain 02/01/2020 04/08/2020 Moderate episode of recurrent major depressive d isorder 11/21/2019 01/03/2020 Obesity, Class II, BMI 35-39.9 10/13/2019 1 Last Assessment & Plan: Assessment: BMI 38.74 documented as of this encounter (statuses as of 02/18/2022) [facility] History of Past illness Narrative* Problem Noted Date Resolved Date Obesity 09/03/2020 11/29/2020 Abdominal pain 02/01/2020 04/08/2020 Moderate episode of recurrent major depressive d isorder 11/21/2019 01/03/2020 Obesity, Class II, BMI 35-39.9 10/13/2019 1 Last Assessment & Plan: Assessment: BMI 38.74 documented as of this encounter (statuses as of 03/05/2022) [address]20-2021 History of Past illness Narrative* Problem Noted Date Resolved Date Obesity 09/03/2020 11/29/2020 Abdominal pain 02/01/2020 04/08/2020 Moderate episode of recurrent major depressive d isorder 11/21/2019 01/03/2020 Obesity, Class II, BMI 35-39.9 10/13/2019 1 Last Assessment & Plan: Assessment: BMI 38.74 documented as of this encounter (statuses as of 03/05/2022) [address]20-2021 History of Past illness Narrative* Problem Noted Date Resolved Date Obesity 09/03/2020 11/29/2020 Abdominal pain 02/01/2020 04/08/2020 Moderate episode of recurrent major depressive d isorder 11/21/2019 01/03/2020 Obesity, Class II, BMI 35-39.9 10/13/2019 1 Last Assessment & Plan: Assessment: BMI 38.74 documented as of this encounter (statuses as of 03/07/2022) [address]20-2021 History of Past illness Narrative* Problem [...] of this encounter (statuses as of 06/14/2022) [address]20-2021 History of Past illness Narrative* Problem [...] 07/02/2020 2:36 PM EDT Emergency Department Report [facility] EMERGENCY DEPARTMENT Service Date:.07/02/20 PCP: Shanna [...] Social Gatherings with Friends and Family: Attends Temple Services: Active Member of Clubs or Organizations: [...] POSITIVE ANTIBODY SCREEN NEGATIVE ARM BAND NUMBER [id number] URINALYSIS, MACRO Result Value Ref Range COLOR, [...] H&H is stable. She was started on [place] and Zofran. 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 Chart was 5 to the SANITARY [employer] MACHINE TENDER's office. 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 She is discharged [...] bleeding with large clots documented in this [facility]07-24-[facility] Evaluation + Plan note Future Appointments Appointment Date:07/23/2022 01:00:00 PM Scheduled Provider: Location:[facility] Appointment Type:CV Echo (FT) Appointment Date:09/07/2022 11:00:00 AM Scheduled Provider:Jamil PRICE MD Location:[facility] Appointment Type:URO New Patient Future Scheduled Tests Radiology* US Renal 06/10/22 * Echo Transthoracic Complete 07/23/22 [facility]05-24-2020 Evaluation + Plan note Future Appointments Appointment Date:07/07/2022 11:00:00 AM Scheduled [facility]: [facility] (FT[facility] Appointment Date:07/08/2022 01:00:00 PM Scheduled Provider:Chetna Jack MD Location[facility] Appointment Type:Cardiology New Patient (FT) Future Scheduled Tests Radiology* US Renal 06/10/22 * Echo Transthoracic [facility]ments Appointment Date:06/11/2022 03:00:00 PM Scheduled Provider:Chetna Jack MD Location[facility] Appointment Type:Cardiology New Patient (FT) Future Scheduled Tests Radiology* US Renal [facility]10[facility] Future Appointments Appointment Date:09/07/2022 11:00:00 AM Scheduled Provider:Jamil PRICE MD Location:[facility] Appointment Type:URO New Patient Future Scheduled Tests Radiology* US [facility]al [facility]10[facility] App[facility]ments Appointment Date:01/20/2023 10:00:00 AM Scheduled Provider:Rajni Rouse MD Location:[facility] Appointment Type:URO Office Visit Future Scheduled Tests Radiology* US Renal 06/10/22 [facility] evaluation + Plan note Future Appointments Appointment Date:10/21/2022 02:20:00 PM Scheduled Provider:Jaquan Paula Location[facility] Appointment Type:FM ER/Hospital Follow Up Appointment Date:11/20/2022 02:40:00 PM Scheduled Provider: Location:[facility] Appointment Type: Lab Draw Appointment Date:01/20/2023 10:00:00 AM Scheduled Provider:Rajni Rouse MD Location:[facility] Appointment Type:URO Office Visit Future Scheduled Tests Laboratory* T3 Free 10/07/22 * Thyroid Stimulating Hormone 10/07/22 * Free T4 10/07/22 Radiology* [facility] Future Appointments Appointment Date:11/19/2022 02:30:00 PM Scheduled Provider:Odilon Strange MD [facility] App[facility] Type:Cardiology New Patient (FT) Appointment Date:01/20/2023 10:00:00 AM Scheduled Provider:Rajni Rouse MD Location:[facility] Appointment Type:URO Office Visit Future Scheduled Tests Radiology* US Renal [facility]10[facility] App[facility]ments Appointment Date:07/13/2023 08:20:00 AM Scheduled Provider:OLGA GATICA PA-C Location:[facility] Appointment Type:URO Office Visit Appointment Date:08/04/2023 09:45:00 AM Scheduled Provider:Rajni Rouse MD Location:[facility] Appointment Type:URO Office Visit Future Scheduled Tests Radiology* US Renal 06/10/22 [facility] Diagnosis Complex ovarian cyst- Primary Other and unspecified ovarian cyst Uterine leiomyoma, unspecified location [facility] Diagnosis Contusion of right thumb without damage to nail, initial encounter- Primary documented in this encounter [facility] Phone: evaluation note* Diagnosis 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 [facility]* Diagnosis Acetabular labrum tear, right, initial encounter- Primary documented in this encounter [facility] note* Diagnosis Tear of right acetabular labrum, subsequent encounter- Primary documented in this encounter [facility] note* Diagnosis Tear of right acetabular labrum, subsequent encounter- Primary Tear of right acetabular labrum, subsequent encounter documented in this encounter [facility] note* Diagnosis Generalized abdominal pain- Primary Abdominal pain, generalized documented in this encounter [facility] Phone: evaluation note* Diagnosis Tear of right acetabular labrum, subsequent encounter- Primary documented in this encounter [facility] noteNortEcologic Brands Other Evaluation noteNo InformationSimGym Other Evaluation note* Diagnosis S/P laparoscopic sleeve gastrectomy- Primary Bariatric surgery status Obesity, Class I, BMI 30-34.9 Obesity, unspecified Dietary counseling and surveillance Dietary surveillance and counseling documented in this encounter [facility] note* Diagnosis Tear of right acetabular labrum, subsequent encounter- Primary documented in this encounter [facility] note* Diagnosis Dental infection- Primary Acute apical periodontitis of pulpal origin documented in this encounter [facility] Phone: evaluation note* Diagnosis Gastroesophageal reflux disease, unspecified whether esophagitis present- Primary Bariatric surgery status Weight disorder Other symptoms concerning nutrition, metabolism, and development Class 1 obesity with serious comorbidity and body mass index (BMI) of 31.0 to 31.9 in adult, unspecified obesity type S/P laparoscopic sleeve gastrectomy Bariatric surgery status Dietary counseling and surveillance Dietary surveillance and counseling documented in this encounter [facility] note* Diagnosis Gastroesophageal reflux disease without esophagitis- Primary Esophageal reflux documented in this encounter [facility] note* Diagnosis Gastroesophageal reflux disease without esophagitis- Primary Esophageal reflux S/P laparoscopic sleeve gastrectomy Bariatric surgery status documented in this encounter [facility] note* Diagnosis Regurgitation of food- Primary Gastroesophageal reflux disease, unspecified whether esophagitis present documented in this encounter [facility] note* Diagnosis Regurgitation of food Gastroesophageal reflux disease, unspecified whether esophagitis present documented in this encounter [facility] note* Diagnosis Gastroesophageal reflux disease without esophagitis Esophageal reflux [facility] Diagnosis Gastroesophageal reflux disease, unspecified whether esophagitis present- Primary [facility] Diagnosis Gastroesophageal reflux disease with esophagitis without hemorrhage- Primary RICHAR (obstructive sleep apnea) Obstructive sleep apnea (adult) (pediatric) Class 1 obesity with serious comorbidity and body mass index (BMI) of 33.0 to 33.9 in adult, unspecified obesity type S/P laparoscopic sleeve gastrectomy Bariatric surgery status Weight disorder Other symptoms concerning nutrition, metabolism, and development documented in this encounter [facility] note* Diagnosis Pre-op evaluation- Primary Preoperative examination, [...] hemorrhage [facility] Diagnosis S/P bariatric surgery- Primary Bariatric surgery status Postoperative pain Other acute postoperative pain Primary osteoarthritis involving multiple joints [facility] Diagnosis S/P gastric surgery- Primary Other postprocedural status Dietary counseling Dietary surveillance and counseling [facility] Diagnosis Postoperative pain Other acute postoperative pain [facility]* Diagnosis Acetabular labrum tear, right, subsequent encounter- Primary [facility] Diagnosis Esophageal dysphagia- Primary Dysphagia, pharyngoesophageal phase S/P gastric bypass Bariatric surgery status Postoperative malabsorption Other and unspecified postsurgical nonabsorption [facility] Diagnosis Esophageal dysphagia Dysphagia, pharyngoesophageal phase S/P gastric bypass Bariatric surgery status S/P bariatric surgery Bariatric surgery status [facility] Diagnosis Polyarthralgia- Primary Pain in joint, multiple sites Malaise and fatigue Other malaise and fatigue Subjective fever S/P laparoscopic sleeve gastrectomy Bariatric surgery status History of syncope Other specified personal history presenting hazards to health History of adrenal insufficiency Personal history of other endocrine, metabolic, and immunity disorders Hypothyroidism, unspecified type documented in this encounter [facility] note* Diagnosis Encounter to discuss test results- Primary Other specified counseling NO SHOW documented in this encounter [facility] note* Diagnosis Constipation, unspecified constipation type- Primary Nausea Nausea alone Rash of face Rash and other nonspecific skin eruption Enlarged lymph nodes Enlargement of lymph nodes documented in this encounter [facility] note* Diagnosis Vernal conjunctivitis of both eyes- Primary documented in this encounter [facility] note* Diagnosis Rash and nonspecific skin eruption- Primary Rash and other nonspecific skin eruption Pain in eye, unspecified laterality Facial edema Edema documented in this encounter [facility] note* Diagnosis Encounter for surgical aftercare following surgery of digestive system- Primary Aftercare following surgery of the teeth, oral cavity and digestive system, NEC Impaired intestinal absorption Unspecified intestinal malabsorption Esophageal dysphagia Dysphagia, pharyngoesophageal phase Gastroesophageal reflux disease, unspecified whether esophagitis present S/P bariatric surgery Bariatric surgery status documented in this encounter [facility] note* Diagnosis ARSALAN (generalized anxiety disorder)- Primary Generalized anxiety disorder Panic disorder without agoraphobia Moderate recurrent major depression (HCC) Major depressive disorder, recurrent episode, moderate documented in this encounter [facility] note* Diagnosis Postoperative malabsorption- Primary Other and unspecified postsurgical nonabsorption S/P gastric bypass Bariatric surgery status Overweight (BMI 25.0-29.9) Overweight Dietary counseling and surveillance Dietary surveillance and counseling documented in this encounter [facility] note* Diagnosis ARSALAN (generalized anxiety disorder)- Primary Generalized anxiety disorder Panic disorder without agoraphobia Moderate recurrent major depression (HCC) Major depressive disorder, recurrent episode, moderate documented in this encounter [facility] note* Diagnosis Epigastric pain- Primary Abdominal pain, epigastric documented in this encounter [facility] note* Diagnosis Back strain, initial encounter- Primary documented in this encounter [facility] note* Diagnosis Generalized abdominal pain- Primary Abdominal pain, generalized documented in this encounter [facility] note* Diagnosis Nausea- Primary Nausea alone documented in this encounter [facility] note* Diagnosis Gastroesophageal reflux disease, unspecified whether esophagitis present documented in this encounter [facility] note* Diagnosis Generalized anxiety disorder documented in this encounter [facility] note* Diagnosis Nausea- Primary Nausea alone RUQ pain Abdominal pain, right upper quadrant History of cholecystectomy Other acquired absence of organ documented in this encounter [facility] note* Diagnosis Dehydration- Primary RUQ pain Abdominal pain, right upper quadrant documented in this encounter [facility] note* Diagnosis Right knee pain, unspecified chronicity- Primary documented in this encounter [facility] note* Diagnosis Post-operative pain- Primary Other acute postoperative pain 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 documented in this encounter [facility] note* Diagnosis Dehydration- Primary Nausea Nausea alone RUQ pain Abdominal pain, right upper quadrant documented in this encounter [facility] note* Diagnosis RUQ pain- Primary Abdominal pain, right upper quadrant Chronic nausea Nausea alone documented in this encounter [facility] note* Diagnosis Chronic nausea Nausea alone RUQ pain Abdominal pain, right upper quadrant documented in this encounter [facility] note* Diagnosis Abdominal pain, unspecified abdominal location- Primary documented in this encounter [facility] note* Diagnosis Generalized abdominal pain- Primary Abdominal pain, generalized documented in this encounter [facility] note* Diagnosis Nausea Nausea alone RUQ pain Abdominal pain, right upper quadrant History of cholecystectomy Other acquired absence of organ documented in this encounter [facility] note* Diagnosis Median arcuate ligament syndrome (HCC)- Primary Celiac artery compression syndrome Neuralgia and neuritis Neuralgia, neuritis, and radiculitis, unspecified documented in this encounter [facility] note* Diagnosis Chronic pain syndrome- Primary 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 documented in this encounter [facility] note* Diagnosis Median arcuate ligament syndrome (HCC)- Primary Celiac artery compression syndrome 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 documented in this encounter [facility] noteNo assessment information availableGood [facility]ar[facility] Work Phone: Evaluation note* Diagnosis Median arcuate ligament syndrome (CMS/HCC)- Primary Celiac artery compression syndrome PONV (postoperative nausea and vomiting) Nausea with vomiting RICHAR (obstructive sleep apnea) Obstructive sleep apnea (adult) (pediatric) Asthma Unspecified asthma Anxiety Anxiety state, unspecified Osteoarthritis Osteoarthrosis, unspecified whether generalized or localized, unspecified site Depression Depressive disorder, not elsewhere classified documented in this encounter [facility] Work Phone: Evaluation note* Diagnosis Abdominal pain- Primary Abdominal pain, unspecified site Abdominal pain Abdominal pain, unspecified site Nausea and vomiting, unspecified vomiting type History of gastric bypass Median arcuate ligament syndrome (CMS/HCC) Celiac artery compression syndrome documented in this encounter [facility] Work Phone: Evaluation note* Diagnosis Median arcuate ligament syndrome (CMS/HCC)- Primary Celiac artery compression syndrome documented in this encounter [facility] Work Phone: Evaluation note* Diagnosis Bariatric surgery status- Primary Dietary zinc deficiency Mineral deficiency, not elsewhere classified Vitamin D deficiency Unspecified vitamin D deficiency [facility]* Diagnosis Gastroesophageal reflux disease, unspecified whether esophagitis present- Primary Constipation, unspecified constipation type documented [facility]* Diagnosis Nausea and vomiting, unspecified vomiting type- Primary documented in this encounter [facility] note* Diagnosis Neuralgia and neuritis- Primary Neuralgia, neuritis, and radiculitis, unspecified Gastroesophageal reflux disease without esophagitis Esophageal reflux 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 S/P gastric bypass Bariatric surgery status [facility]* Diagnosis ARSALAN (generalized anxiety disorder)- Primary Generalized anxiety disorder Panic disorder without agoraphobia Moderate recurrent major depression (HCC) Major depressive disorder, recurrent episode, moderate [facility]* Diagnosis Sudden onset of severe abdominal pain- Primary Abdominal pain, unspecified site Nausea and vomiting, unspecified vomiting type PEG (percutaneous endoscopic gastrostomy) status (HCC) Gastrostomy status [facility]* Diagnosis Median arcuate ligament syndrome (CMS-HCC)- Primary Celiac artery compression syndrome documented in this encounter [facility] Work Phone: Evaluation note* Diagnosis Epigastric [...] Nausea with vomiting documented in this encounter [facility] Work Phone: Evaluation note* Diagnosis Urinary frequency- Primary Urgency of urination documented in this encounter [facility] note* Diagnosis Screening for genitourinary condition Screening for other and unspecified genitourinary condition documented in this encounter [facility] note* Diagnosis ARSALAN (generalized anxiety disorder)- Primary Generalized anxiety disorder Panic disorder without agoraphobia Moderate recurrent major depression (HCC) Major depressive disorder, recurrent episode, moderate documented in this encounter [facility] note* Diagnosis Onset Date Resolution Status Intractable vomiting with nausea acute Small bowel obstruction acut e [facility] Work Phone: Evaluation note* Diagnosis Onset Date Resolution Status Intractable vomiting with nausea acute Small bowel obstruction acut e Status post gastric bypass for obesity acute [facility] Work Phone: Evaluation note* Diagnosis Chronic nausea- Primary Nausea alone History of laparoscopic partial gastrectomy Personal history of surgery to other organs History of sphincterotomy of sphincter of Oddi Other postprocedural status 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 documented in this encounter [facility] note* Diagnosis Chronic abdominal pain- Primary Abdominal pain, unspecified site Gastroesophageal reflux disease without esophagitis Esophageal reflux Neuralgia and neuritis Neuralgia, neuritis, and radiculitis, unspecified 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 S/P gastric bypass Bariatric surgery status documented [facility]* Diagnosis Gastroesophageal reflux disease without esophagitis Esophageal reflux Neuralgia and neuritis Neuralgia, neuritis, and radiculitis, unspecified 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 Chronic abdominal pain Abdominal pain, unspecified site S/P gastric bypass Bariatric surgery status documented [facility]* Diagnosis Gastroesophageal reflux disease without esophagitis Esophageal reflux Neuralgia and neuritis Neuralgia, neuritis, and radiculitis, unspecified 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 Chronic abdominal pain Abdominal pain, unspecified site S/P gastric bypass Bariatric surgery status documented [facility]* Diagnosis Neuralgia and neuritis- Primary Neuralgia, neuritis, and radiculitis, unspecified 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 documented in this encounter [facility] note* Diagnosis Gastroesophageal reflux disease without esophagitis Esophageal reflux Neuralgia and neuritis Neuralgia, neuritis, and radiculitis, unspecified 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 Chronic abdominal pain Abdominal pain, unspecified site S/P gastric bypass Bariatric surgery status documented in this encounter [facility] note* Diagnosis Gastroesophageal reflux disease without esophagitis Esophageal reflux Neuralgia and neuritis Neuralgia, neuritis, and radiculitis, unspecified 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 Chronic abdominal pain Abdominal pain, unspecified site S/P gastric bypass Bariatric surgery status documented in this encounter [facility] note* Diagnosis Gastroesophageal reflux disease, unspecified whether esophagitis present documented in this encounter [facility] note* Diagnosis Gastroesophageal reflux disease, unspecified whether esophagitis present documented in this encounter [facility] note* Diagnosis Gastroesophageal reflux disease, unspecified whether esophagitis present- Primary documented in this encounter [facility] note* Diagnosis Chronic abdominal pain- Primary Abdominal pain, unspecified site History of gastric bypass Bariatric surgery status Pre-op testing Preoperative examination, unspecified Chronic abdominal pain Abdominal pain, unspecified site History of gastric bypass Bariatric surgery status Pre-op testing Preoperative examination, unspecified documented in this encounter [facility] note* Diagnosis Multiple gastric ulcers- Primary LUQ pain Abdominal pain, left upper quadrant Gastroesophageal reflux disease with esophagitis without hemorrhage Constipation, unspecified constipation type Chronic abdominal pain Abdominal pain, unspecified site History of gastric bypass Bariatric surgery status Pre-op testing Preoperative examination, unspecified documented in this encounter [facility] note* Diagnosis History of gastric bypass- Primary Bariatric surgery status Left upper quadrant abdominal pain Chronic abdominal pain Abdominal pain, unspecified site History of gastric bypass Bariatric surgery status Pre-op testing Preoperative examination, unspecified documented in this encounter [facility] note* Diagnosis Gastroesophageal reflux disease without esophagitis Esophageal reflux Neuralgia and neuritis Neuralgia, neuritis, and radiculitis, unspecified 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 Chronic abdominal pain Abdominal pain, unspecified site S/P gastric bypass Bariatric surgery status Chronic abdominal pain Abdominal pain, unspecified site History of gastric bypass Bariatric surgery status Pre-op testing Preoperative examination, unspecified [facility] - ReportedNort [facility] Other History general Narrative - Reported* Type [...] hystectomy 2020 Hospitalization History childbirths Hospitalization History [facility] 2019 Hospitalization History salvador axel-gastritis 1 03/2020 [employer] Other History general Narrative - Reported* Type [...] repair 03/20/2021 Hospitalization History childbirths Hospitalization History [facility] 2019 Hospitalization History salvador axel-gastritis 1 03/2020 [employer] Other History of Present illness Narrative* Sherry Magaña MD - 04/20/2023 3:45 PM EST And I had a phone conversation patient and I had a phone conversation as she was at home in the [facility] [place] and I was [facility] vascular [place]. She is recovering from a laparotomy for [...] she has seen her general surgeon at [facility] and will be following up with her gastro enterologist at the clinic. I will see her back by virtual visit in 2 months documented in this [facility] Work Phone: Hospital course Narrative No data available for this section [facility]* Attachments The following attachments cannot be sent through Care Everywhere. * Uterine Fibroids (Turkmen) * Ovarian Cyst: Hemorrhagic (Turkmen) [facility]* Attachments The following attachments cannot be sent through Care Everywhere. * Finger: Bruises (Turkmen) * Subungual Hematoma (Turkmen) documented in this [facility] Work Phone: Hospital Discharge instructions* Attachments The following attachments cannot be sent through Care Everywhere. * Abdominal Pain (Turk[place]) [facility] Discharge instructions No data available for this section [facility] Discharge instructions* Attachments The following attachments cannot be sent through Care Everywhere. * Abdominal Pain (Turkmen) documented [facility] Discharge instructions Additional Instructions Please take medications as prescribed. Return to ER or follow-up with PCP or GI specialist if symptoms worsen. 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.[facility] Work Phone: Hospital Discharge instructions Additional [...] fever vomiting despite medication or any other concernsGood [facility]aritan Hospital Work Phone: Hospital Discharge instructions Additional Instructions [facility] to manage care: - Full code - Routine vital signs - NPO - Maintain central line, routine care per protocol - Decompress the J-tube by placing it to gravity drain when she does develop nauseaGood Samaritan Hospital Work Phone: Hospital Discharge instructions Additional Instructions Follow up with your [facility] surgeon Return to the ED if you develop worsening symptoms [facility] Work Phone: Hospital Discharge instructions Additional Instructions If your symptoms return/worsen or you develop any further concerns or symptoms please see your doctor or return to the emergency department immediately.[facility] Work Phone: Progress note No data available for this section [facility] (n[facility] Consultation (Routine) - New Request Specialty Diagnoses / Procedures Referred By Jazmine hooks Referred To Contact [facility] Diagnoses Articular cartilage disorder of right knee Lucie Mora MD [address] [place] [address] Referral ID Status Reason Start Date Expiration Date V isits Requested Visits Authorized [id number] New Request 06/02/2021 06/27/2022 1 1 [facility] Diagnostic Procedure Only (Routine) - Closed Specialty Diagnoses / Procedures Referred By Jazmine hooks Referred To Contact XR IMAGING Diagnoses Acetabular labrum tear, right, initial encounter Procedures XR HIP GENERAL 3V PELV/AP/LAT RIGHT RADEX HIP UNILATERAL WITH PELVIS 2-3 VIEWS Kuldip Yousif MD [address] [place] [address] Xr Imaging Referral ID Status Reason Start Date Expiration Date V isits Requested Visits Authorized [id number] Closed Auto-Generate d Referral 06/18/2021 07/18/2022 1 1 [facility] for referral (narrative)* Outpatient Procedure (Routine) - Pending Review Specialty Diagnoses / Procedures Referred By Jazmine hooks Referred To Contact [facility] Diagnoses Gastroesophageal reflux disease without esophagitis Procedures EGD - THERAPEUTIC, EUS, OR TUBE INTERVENTIONS ESOPHAGOGASTRODUODENOSC [place] [address] [place] [address] [address] Referral ID Status Reason Start Date Expiration Date Visits Requested Visits Authorized [id number] Pending Review Auto-Generat ed Referral 11/17/2021 11/17/2022 1 1 [facility] for referral (narrative)* Outpatient Procedure (Routine) - Authorized Specialty Diagnoses / Procedures Referred By Contac t Referred To Contact [facility] Diagnoses Gastroesophageal reflux disease without esophagitis S/P laparoscopic sleeve gastrectomy Procedures PH IMPEDANCE INSERT OFF MEDS ESOPHGL FUNCJ G-ESOP RFLX IMPD Breanna Bhatti APRN.CNP [address] [id number] [place] [id number] Referral ID Status Reason Start Date Expiration Date Visits Requested Visits Authorized [id number] Authorized Auto-Generat ed Referral 11/19/2021 11/18/2022 1 1 [facility] for referral (narrative)* Outpatient Procedure (Routine) - Pending Review Specialty Diagnoses / Procedures Referred By Contac t Referred To Contact [facility] Diagnoses Regurgitation of food Gastroesophageal reflux disease, unspecified whether esophagitis present Procedures PH HUERTA INSERT OFF MEDS GASTROESOPHAG REFLX TEST W/TELEMTRY PH Breanna Hernandez APRN.[employer] [address] [place] [address] [address] Referral ID Status Reason Start Date Expiration Date Visits Requested Visits Authorized [id number] Pending Review Auto-Generat ed Referral 12/17/2022 1 1 [facility] for referral (narrative)* Outpatient Procedure (Routine) - Closed Specialty Diagnoses / Procedures Referred By Contac t [facility] Diagnoses Gastroesophageal reflux disease without esophagitis Procedures EGD - THERAPEUTIC, EUS, OR TUBE INTERVENTIONS ESOPHAGOGASTRODUODENOSC OPY [place] [address] [place] [address] [address] Referral ID Status Reason Start Date Expiration Date V isits Requested Visits Authorized [id number] Closed Auto-Generate d Referral 11/17/2021 11/17/2022 1 1 [facility] for referral (narrative)* Outpatient Procedure (Routine) - Pending Review Specialty Diagnoses / Procedures Referred By [facility] Referred To [facility] Diagnoses Pre-op evaluation Procedures ECG COMPLETE ECG ROUTINE ECG W/LEAST 12 LDS W/I&R Ioana Hogan PA-C [address] [place] [address] [address] Referral ID Status Reason Start Date Expiration Date Visits Requested Visits Authorized [id number] Pending Review Auto-Generat ed Referral 01/28/2023 1 1 [facility] for referral (narrative)* Outpatient Procedure (Routine) - Authorized Specialty Diagnoses / Procedures Referred By [facility] Referred [facility] Diagnoses Esophageal dysphagia S/P gastric bypass Procedures EGD - THERAPEUTIC, EUS, OR TUBE INTERVENTIONS EGD BALLOON DILATION ESOPHAGUS <30 MM DIAM Breanna Stern, INVENTORY ADMINISTRATOR.REAL ESTATE AGENT [address] [place] [address] [facility] [address] [place] [address] Referral ID Status Reason Start Date Expiration Date Visits Requested Visits Authorized [id number] Authorized Auto-Generat ed Referral 03/05/2022 03/05/2023 1 1 [facility] for referral (narrative)* Outpatient Procedure (Routine) - Closed Specialty Diagnoses / Procedures Referred By Jazmine hooks Referred To Contact [facility] Diagnoses Esophageal dysphagia S/P gastric bypass Procedures EGD - THERAPEUTIC, EUS, OR TUBE INTERVENTIONS EGD BALLOON DILATION ESOPHAGUS <30 MM DIAM Breanna Stern APRN.REAL ESTATE AGENT [address] [place] [address] [place] [phone] Referral ID Status Reason Start Date Expiration Date V isits Requested Visits Authorized [id number] Closed Auto-Generate d Referral 03/05/2022 03/05/2023 1 1 [facility] for referral (narrative)* Outpatient Procedure (Routine) - Pending Review Specialty Diagnoses / Procedures Referred By Jazmine hooks Referred To Contact [facility] Diagnoses Constipation, unspecified constipation type Procedures [facility] ANORECTAL MANOMETRY ANORECTAL MANOMETRY Kasie Avalos MD [address] [place] [address] [place] [phone] Referral ID Status Reason Start Date Expiration Date Visits Requested Visits Authorized [id number] Pending Review Auto-Generat ed Referral 07/22/2022 07/23/2023 1 1 [facility] for referral (narrative)* Diagnostic Procedure Only (Routine) - Pending Review Specialty Diagnoses / Procedures Referred By Jazmine Referred To Contact XR IMAGING Diagnoses S/P bariatric surgery Gastroesophageal reflux disease, unspecified whether esophagitis present Procedures XR UPPER GI ROUTINE DOUBLE CONTRAST/AIR RADIOLOGIC EXAM UPR GI TRC DOUBLE CONTRAST STUDY Breanna Stern APRN.CNP [address] [place] [address] Xr Imaging Referral ID Status Reason Start Date Expiration Date Visits Requested Visits Authorized [id number] Pending Review Auto-Generat ed Referral 09/18/2022 10/18/2023 1 1 [facility] for referral (narrative)* Outpatient Procedure (Routine) - Authorized Specialty Diagnoses / Procedures Referred By Contac t Referred To Contact [facility] Diagnoses Epigastric pain Procedures EGD DIAGNOSTIC ESOPHAGOGASTRODUODENOSC OPY [place] [address] [place] [address] [facility] [address] [place] [address] Referral ID Status Reason Start Date Expiration Date Visits Requested Visits Authorized [id number] Authorized Auto-Generat ed Referral 10/20/2022 10/21/2023 1 1 [facility] for referral (narrative)* Diagnostic Procedure Only (Routine) - Closed Specialty Diagnoses / Procedures Referred By Contac t Referred To Contact US IMAGING Diagnoses Nausea RUQ pain History of cholecystectomy Procedures US ABD RIGHT UPPER QUADRANT US ABDOMINAL REAL [place] W/[place] [address] [place] [address] Us Imaging [facility] Referral ID Status Reason Start Date Expiration Date V isits Requested Visits Authorized [id number] Closed Auto-Generate d Referral 11/04/2022 12/04/2023 1 1 * Diagnostic Procedure Only (Routine) - Authorized Specialty Diagnoses / Procedures Referred By Contact Referred To Contact MOLECULAR & FUNCTIONAL IMAGING Diagnoses Nausea RUQ pain History of cholecystectomy Procedures NM HEPATOBILIARY W EF AND/OR RX HEPATOBIL SYST IMAG INC GB W/[place] [address] [place] [address] Molecular & Functional Imaging [address] [place] [phone] Referral ID Status Reason Start Date Expiration Date Visits Requested Visits Authorized [id number] Authorized Auto-Generat ed Referral 11/04/2022 12/04/2023 1 1 [facility] for referral (narrative)* Diagnostic Procedure Only (Routine) - Pending Review Specialty Diagnoses / Procedures Referred By Contac t Referred To Contact XR IMAGING Diagnoses Right knee pain, unspecified chronicity Procedures XR KNEE GENERAL 4V AP BOTH/PA BOTH/LAT/MERC RIGHT RADIOLOGIC EXAM KNEE COMPLETE 4/MORE VIEWS Agustin Salmeron PA-C [address] [place] [address] [place] [address] Referral ID Status Reason Start Date Expiration Date Visits Requested Visits Authorized [id number] Pending Review Auto-Generat ed Referral 11/04/2022 12/04/2023 1 1 [facility] for referral (narrative)* Outpatient Procedure (Urgent) - Authorized Specialty Diagnoses / Procedures Referred By Contac t Referred To Contact [facility] Diagnoses Chronic nausea RUQ pain Procedures US MESENTERIC ARTERY CMPLT VAS LAB DUP-SCAN ARTL TIARA ABDL/PEL/SCROT&/[place] [address] [place] [address] [facility] [address] [place] [address] Referral ID Status Reason Start Date Expiration Date Visits Requested Visits Authorized [id number] Authorized Auto-Generat ed Referral 11/23/2022 11/23/2023 1 1 [facility] for referral (narrative)* Outpatient Procedure (Urgent) - Closed Specialty Diagnoses / Procedures Referred By Contac t Referred To Contact [facility] Diagnoses Chronic nausea RUQ pain Procedures US MESENTERIC ARTERY CMPLT VAS LAB DUP-SCAN ARTL TIARA ABDL/PEL/SCROT&/[place] [address] [place] [address] [facility] [address] [place] [address] Referral ID Status Reason Start Date Expiration Date V isits Requested Visits Authorized [id number] Closed Auto-Generate d Referral 11/23/2022 11/23/2023 1 1 [facility] for referral (narrative)* Diagnostic Procedure Only (Routine) - Closed Specialty Diagnoses / Procedures Referred By Contac t Referred To Contact US IMAGING Diagnoses Nausea RUQ pain History of cholecystectomy Procedures US ABD RIGHT UPPER QUADRANT US ABDOMINAL REAL TIME W/[place] [address] [place] [address] [place] [address] Referral ID Status Reason Start Date Expiration Date V isits Requested Visits Authorized [id number] Closed Auto-Generate d Referral 11/04/2022 12/04/2023 1 1 [facility] for referral (narrative)* Outpatient Procedure (Routine) - Authorized Specialty Diagnoses / Procedures Referred By Contac t Referred To Contact [facility] Diagnoses Gastroesophageal reflux disease, unspecified whether esophagitis present Procedures PH HUERTA INSERT ON MEDS GASTROESOPHAG REFLX TEST W/TELEMTRY PH Kasie Sherman MD [address] [place] [address] [facility] [address] [address] Referral ID Status Reason Start Date Expiration Date Visits Requested Visits Authorized [id number] Authorized Auto-Generat ed Referral 04/28/2023 04/27/2024 1 1 * Outpatient Procedure (Routine) - Authorized Specialty Diagnoses / Procedures Referred By Contac t Referred To Contact [facility] Diagnoses Gastroesophageal reflux disease, unspecified whether esophagitis present Procedures EGD - THERAPEUTIC, EUS, OR TUBE INTERVENTIONS ESOPHAGOGASTRODUODENOSC OPY TRANSORAL DIAGNOSTIC Kasie Avalos MD [address] [facility] [facility] [place] [address] [address] Referral ID Status Reason Start Date Expiration Date Visits Requested Visits Authorized [id number] Authorized Auto-Generat ed Referral 04/28/2023 04/27/2024 1 1 [facility] for referral (narrative)* Outpatient Procedure (Routine) - Closed Specialty Diagnoses / Procedures Referred By Jazmine Referred To Contact [facility] Diagnoses Gastroesophageal reflux disease, unspecified whether esophagitis present Procedures EGD - THERAPEUTIC, EUS, OR TUBE INTERVENTIONS ESOPHAGOGASTRODUODENOSC OPY [place] [address] [place], [place] [address] [address] [address] Referral ID Status Reason Start Date Expiration Date V isits Requested Visits Authorized [id number] Closed Auto-Generate d Referral 04/28/2023 04/27/2024 1 1 T [facility] for referral (narrative)* Outpatient Procedure (Routine) - Authorized Specialty Diagnoses / Procedures Referred By Jazmine hooks Referred To Contact [facility] Diagnoses Multiple gastric ulcers Procedures EGD DIAGNOSTIC ESOPHAGOGASTRODUODENOSC OPY TRANSORAL DIAGNOSTIC Kasie Avalos MD [address] [facility] [facility] [place] [address] [address] Referral ID Status Reason Start Date Expiration Date Visits Requested Visits Authorized [id number] Authorized Auto-Generat ed Referral 09/08/2023 09/07/2024 1 1 T [facility] for visit NarrativeGeneral Surgery [facility] for [facility] Narrative* Outpatient Procedure (Routine) - Closed Specialty Diagnoses / Procedures [facility] Referred To Contact [facility] Diagnoses Gastroesophageal reflux disease without esophagitis Procedures EGD - THERAPEUTIC, EUS, OR TUBE INTERVENTIONS ESOPHAGOGASTRODUODENOSC OPY [place] [address] [place] [address] [address] Referral ID Status Reason Start Date Expiration Date V isits Requested Visits Authorized [id number] Closed Auto-Generate d Referral 11/17/2021 11/17/2022 1 1 [facility] for visit Narrative* Outpatient Procedure (Routine) - Closed Specialty Diagnoses / Procedures Referred By Contac t Referred To Contact [facility] Diagnoses Esophageal dysphagia S/P gastric bypass Procedures EGD - THERAPEUTIC, EUS, OR TUBE INTERVENTIONS EGD BALLOON DILATION ESOPHAGUS <30 MM DIAM Breanna Stern, INVENTORY ADMINISTRATOR.[facility] [address] [place] [address] [address] Referral ID Status Reason Start Date Expiration Date V isits Requested Visits Authorized [id number] Closed Auto-Generate d Referral 03/05/2022 03/05/2023 1 1 [facility] for visit Narrative* Outpatient Procedure (Urgent) - Closed Specialty Diagnoses / Procedures [facility] Referred [facility] Diagnoses Chronic nausea RUQ pain Procedures US MESENTERIC ARTERY CMPLT VAS LAB DUP-SCAN ARTL TIARA ABDL/PEL/SCROT&/[place] [address] [place] [address] [address] Referral ID Status Reason Start Date Expiration Date V isits Requested Visits Authorized [id number] Closed Auto-Generate d Referral 11/23/2022 11/23/2023 1 1 [facility] for visit Narrative* Diagnostic Procedure Only (Routine) - Closed Specialty Diagnoses / Procedures Referred By Contac t Referred To Contact US IMAGING Diagnoses Nausea RUQ pain History of cholecystectomy Procedures US ABD RIGHT UPPER QUADRANT US ABDOMINAL REAL TIME W/[place] [address] [place] [address] [place] [address] Referral ID Status Reason Start Date Expiration Date V isits Requested Visits Authorized [id number] Closed Auto-Generate d Referral 11/04/2022 12/04/2023 1 1 [facility] for visit Narrative* Outpatient Procedure (Routine) - Closed Specialty Diagnoses / Procedures Referred By Contac t Referred To Contact [facility] Diagnoses Gastroesophageal reflux disease, unspecified whether esophagitis present Procedures EGD - THERAPEUTIC, EUS, OR TUBE INTERVENTIONS ESOPHAGOGASTRODUODENOSC OPY TRANSORAL DIAGNOSTIC Roupharichard, MD Kasei [address] [place] [address] [facility] [address] [place] [phone] Referral ID Status Reason Start Date Expiration Date V isits Requested Visits Authorized [id number] Closed Auto-Generate d Referral 04/28/2023 04/27/2024 1 1 [facility] Summary Purpose [...] FoundDocuments on File Type Date Recorded Patient Toeing Stockings Expl anation Advance Directive(s) 03/13/2021 9:49 AM Date Activated Date Inactivated Comments 12/06/2022 9:37 PM 12/09/2022 8:48 PM Question Answer Comments Full Code Order Discussed With: Patient Date Activated Date Inactivated Comments 11/22/2022 8:03 PM 11/23/2022 5:11 PM Question Answer Comments Full Code Order Discussed With: Patient Documents on File Type Date Recorded Patient Toeing Stockings Expl anation Advance Directive(s) 03/13/2021 9:49 AM [...] Documents on File Type Date Recorded Patient Toeing Stockings Expl anation Advance Directive(s) 07/04/2021 4:13 PM [...] Documents on File Type Date Recorded Patient Toeing Stockings Expl anation Advance Directive(s) 03/13/2021 9:49 AM [...] with Follow Up in 24 Hours ([facility]) (Turkmen) documented in this encounter Assessments Diagnosis Lower abdominal pain- Primary Abdominal pain, other specified site Reason for Referral Status Reason Specialty Diagnoses / Procedures Referre d By Contact Referred To Contact Closed Procedures US PELVIC WITH TRANSVAGINAL WITH DOPPLER Juanito Laird PA-C [address] [place] [address] Specialty Diagnoses / Procedures Referred By Contact Referred To Contact [facility] Diagnoses Tear of right acetabular labrum, subsequent encounter Procedures CONSULT TO PHYSICAL THERAPY PHYSICAL THERAPY EVALUATION HIGH COMPLEX 45 MINS Justine Shabazz PA-C [address] [place] [address] [facility] [address] [place] [address] Referral ID Status Reason Start Date Expiration Date Visits Requested Visits Authorized [id number] Pending Review Auto-Generat ed Referral 06/23/2021 06/23/2022 1 1 Reason 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 - Please request Dr. Keven Gomez [phone] Diagnosis 1 Hernia (K46.9) Referral Organization [facility] Family Priscila Guo Referring Provider First Name Shanna Referring Provider Last Name Slade Referring Provider Specialty Nurse Ramona castañeda Referred Organization [facility] Referred Address [address] [facility],[place],[address] Referred Provider Specialty General Surg ammon Referral Priority Routine Specialty Diagnoses / Procedures Referred By Jazmine hooks Referred To Contact Diagnoses S/P laparoscopic sleeve gastrectomy Procedures CONSULT TO BARIATRIC NUTRITION OFFICE/OUTPATIENT [facility] 60-74 MINUTES Sabina Joy APRN.REAL ESTATE AGENT [address] [place] [address] Referral ID Status Reason Start Date Expiration Date Visits Requested Visits Authorized [id number] Pending Review PCP Requested Referral 10/09/2021 10/09/2022 [...] BARIATRIC ESOPHAGOGASTRODUODENOSCO PY TRANSORAL DIAGNOSTIC Sabina Joy APRN.REAL ESTATE AGENT [address] [facility] [place] [phone] Dig[facility]ive Disease [place] [address] [place] [address] Referral ID Status Reason Start Date Expiration Date Visits Requested Visits Authorized [id number] Pending Review Auto-Generat ed Referral 10/09/2021 10/09/2022 1 1 Specialty Diagnoses / Procedures Referred By Contac t Referred To Contact Diagnoses RICHAR (obstructive sleep apnea) Procedures CONSULT TO SLEEP MEDICINE - ADULT OFFICE/OUTPATIENT [facility] 60-74 MINUTES Sabina Joy APRN.REAL ESTATE AGENT [address] [place] [phone] Referral ID Status Reason Start Date Expiration Date Visits Requested Visits Authorized [id number] Authorized PCP Requested Referral 2 01/02/2023 1 1 Specialty Diagnoses / Procedures Referred By Contac t Referred To Contact [facility] Diagnoses S/P bariatric surgery Primary osteoarthritis involving multiple joints Procedures CONSULT TO PHYSICAL THERAPY PHYSICAL THERAPY EVALUATION HIGH COMPLEX 45 MINS Breanna Stern APRN.REAL ESTATE AGENT [address] [place] [address] [facility] [address] [place] [address] Referral ID Status Reason Start Date Expiration Date Visits Requested Visits Authorized [id number] Pending Review Auto-Generat ed Referral 2 02/03/2023 1 1 Specialty Diagnoses / Procedures Referred By Contac t Referred To Contact Endocrinology Diagnoses History of adrenal insufficiency Hypothyroidism, unspecified type Procedures CONSULT TO ENDOCRINOLOGY OFFICE/OUTPATIENT [facility] 60-74 MINUTES Aliyah Washburn PA-C [address] [place] [address] Referral ID Status Reason Start Date Expiration Date Visits Requested Visits Authorized [id number] Authorized PCP Requested Referral 06/12/2022 06/12/2023 1 1 Specialty Diagnoses / Procedures Referred By Contac t Referred To Contact Allergy Diagnoses Rash and nonspecific skin eruption Pain in eye, unspecified laterality Facial edema Procedures CONSULT TO ALLERGY/IMMUNOLOGY OFFICE/OUTPATIENT [facility] 60-74 MINUTES Samara Evans MD [address] [place] [address] Referral ID Status Reason Start Date Expiration Date Visits Requested Visits Authorized [id number] Authorized PCP Requested Referral 07/28/2022 07/28/2023 1 1 Specialty Diagnoses / Procedures Referred By Contac t Referred To Contact CT IMAGING Diagnoses Generalized abdominal pain Procedures CTA ABD/PEL W IVCON CT ANGIO ABD&PLVIS CNTRST MTRL W/WO CNTRST Agustin Piper MD [address] [place] [address] Ct Imaging [place] [address] Referral ID Status Reason Start Date Expiration Date Visits Requested Visits Authorized [id number] Authorized Auto-Generat ed Referral 3 01/17/2023 1 1 Specialty Diagnoses / Procedures Referred By Contac t Referred To Contact Home Health Services Diagnoses Median arcuate ligament syndrome (CMS/HCC) Alicia Toro, INVENTORY ADMINISTRATOR-REAL ESTATE AGENT [address] [address] [place] [address] Referral ID Status Reason Start Date Expiration Date Visits Requested Visits Authorized [id number] Authorized Specialty Services Required 03/08/2023 03/07/2024 999 999 Specialty Diagnoses / Procedures Referred By Contac t Referred To Contact Home Health Services Diagnoses Other [place] [address] [address] [place] [address] Referral ID Status Reason Start Date Expiration Date Visits Requested Visits Authorized [id number] Authorized Specialty Services Required 07/01/2023 06/30/2024 999 999 Specialty Diagnoses / Procedures Referred By Jazmine t Referred To Contact Francisco J Steve MD [address] [place] [address] Referral ID Status Reason Start Date Expiration Date V isits Requested Visits Authorized [id number] Pending Review 1 1 Specialty Diagnoses / Procedures Referred By Jazmine t Referred To Contact TRANSPLANT Diagnoses Chronic nausea History of laparoscopic partial gastrectomy History of sphincterotomy of sphincter of Oddi Median arcuate ligament syndrome (HCC) Procedures CONSULT TO [facility] LAPAROTOMY CELIOTOMY W/[place] [address] [place] [address] [facility] [address] [place] [address] Referral ID Status Reason Start Date Expiration Date Visits Requested Visits Authorized [id number] Canceled Financial Clearance Required - [employer] 07/19/2023 07/18/2024 99 99 Specialty Diagnoses / Procedures [facility] Referred To Contact Diagnoses Chronic abdominal pain History of gastric bypass Pre-op testing Procedures REFER TO [facility] - PREOPERATIVE OPTIMIZATION OFFICE/OUTPATIENT [facility] 60 [place] [address] [place] [address] Referral ID Status Reason Start Date Expiration Date Visits Requested Visits Authorized [id number] Authorized PCP Requested Referral 09/09/2023 09/08/2024 1 1 Medications Administered Section Inactive Administered Medications - up to 3 most recent administrations Medication Order MAR Action Action Date Dose Rate Site benzocaine 20% (TOPEX) TOPICAL, X (OR/PROCEDURE) PRN, Starting on Heena 12/25/21 at 0939, Until Heena 12/25/21 at 0939, Intraprocedure Given 12/25/2021 9:39 AM EST 1 Homer Meperidine (PF) injection (DEMEROL) X (OR/PROCEDURE) PRN, [...] section and content) DATE CREATED AUTHOR 09/11/2017 [facility] DATE CREATED AUTHOR AUTHOR'S ORGANIZ ATION 06/03/2021 [facility] DATE CREATED AUTHOR AUTHOR'S ORGANIZ ATION 06/24/2022 [facility] DATE CREATED AUTHOR AUTHOR'S ORGANIZ ATION 11/01/2022 [facility] DATE CREATED AUTHOR AUTHOR'S ORGANIZ ATION 11/07/2022 [facility] DATE CREATED AUTHOR AUTHOR'S ORGANIZ ATION 11/22/2022 [facility] DATE CREATED AUTHOR AUTHOR'S ORGANIZ ATION 11/29/2022 [facility] DATE CREATED AUTHOR AUTHOR'S ORGANIZ ATION 12/16/2022 [facility] DATE CREATED AUTHOR AUTHOR'S ORGANIZ ATION 02/12/2023 [facility] DATE CREATED AUTHOR AUTHOR'S ORGANIZ ATION 02/18/2023 [facility] DATE CREATED AUTHOR AUTHOR'S ORGANIZ ATION 06/27/2023 [facility] DATE CREATED AUTHOR AUTHOR'S ORGANIZ ATION 07/11/2023 [facility] DATE CREATED AUTHOR AUTHOR'S ORGANIZ ATION 07/21/2023 [facility] DATE CREATED AUTHOR AUTHOR'S ORGANIZ ATION 07/22/2023 [facility] DATE CREATED AUTHOR AUTHOR'S ORGANIZ ATION 08/06/2023 [facility] DATE CREATED AUTHOR AUTHOR'S ORGANIZ ATION 09/05/2023 [facility] DATE CREATED AUTHOR AUTHOR'S ORGANIZ ATION 09/07/2023 [facility] DATE CREATED AUTHOR AUTHOR'S ORGANIZ ATION 09/20/2023 [facility] DATE CREATED AUTHOR AUTHOR'S ORGANIZ ATION 09/25/2023 [facility] Reason for Visit (unrecogniz ed section and content) Reason Comments Fatigue Anxiety Stress Specialty Diagnoses / Procedures Referred By Contac t Referred To Contact Psychology / ADULT PSYCHOLOGY Diagnoses follow up Procedures VIDEO PSYC/PSYL EST Pablo Lebron, ROSALBA [address] [place] [id number] Pablo Lebron, PSYD [address] [place] [phone] Referral ID Status Reason Start Date Expiration Date V vaughn Requested Visits Authorized [id number] Pending Review 06/09/2023 09/07/2023 1 1 Reason Comments Abdominal Pain RUQ abdominal pain t hat is spreading across her back and into the left side. pt states that she does not have a gallbladder or appendix and has been treated by [facility] recently for bowel adhesions and it is just getting worse. 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't rater associate anything Reason Comments Follow-up Pt presents for [...] esophagitis present Procedures PH HUERTA INSERT OFF [employer] GASTROESOPHAG REFLX TEST W/TELEMTRY PH ELTRD Merlin Breanna, SLIM.REAL ESTATE AGENT [address] [place] [address] [facility] [address] [place] [address] Referral ID Status Reason Start Date Expiration Date V isits Requested Visits Authorized [id number] Closed Auto-Generate d Referral 12/25/2021 12/17/2022 1 [...] VIDEO PSYC/PSYL EST Self Pablo Lebron, PSYD [address] [place] [phone] Referral ID Status Reason Start Date Expiration Date V isits Requested Visits Authorized [id number] Outside PCP 09/21/2022 12/20/2022 1 1 Reason Comments Anxiety Stress Specialty Diagnoses / Procedures Referred By Contac t Referred To Contact Psychology / ADULT PSYCHOLOGY Diagnoses Follow up Procedures VIDEO PSYC/PSYL EST Pablo Lebron, PSYD [address] [facility] [address] [place] [address] Pablo Lebron, PSYD [address] [place] [address] Referral ID Status Reason Start Date Expiration Date V isits Requested Visits Authorized [id number] Pending Review 10/05/2022 01/03/2023 1 1 Reason [...] CT scans showing possible kidney stones near [facility], here today because hands turned brown Reason [...] 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] Procedures SC UNLISTED PX ABDOMEN MUSCULOSKELETAL SYSTEM Release Median Arcuate Ligament [place] [address] [place] [address] [place] [address] [place] [address] Referral ID Status Reason Start Date Expiration Date Visits Re quested Visits Authorized [id number] 1 1 Reason Comments Abdominal Pain Specialty Diagnoses / Procedures Referred By Jazmine t Referred To Contact Diagnoses Abdominal pain History of gastric bypass Nausea and vomiting, unspecified vomiting type nausea and vomiting [place] [address] [place] [address] [facility] [address] [place] [address] Referral ID Status Reason Start Date Expiration Date Visits Re quested Visits Authorized [id number] 1 1 Reason Comments Weight Loss Surgery Reason Comments Established Patient Reason Comments Appointment Cancel EGD Reason Comments Patient Question Reason Comments Vomiting Reason Comments Patient Education Hand Stripper - Other Reason Onset Date Comments Refill [...] unspecified vomiting type Procedures [place] [address] [place] [address] [facility] [address] [address] [place] [address] Referral ID Status Reason Start Date Expiration Date Visits Re quested Visits Authorized [id number] 1 1 Reason Comments Received Outside Medical Records Reason Comments Education Of Patient/family Reminder Call 08/26/23 appt confirm ed Reason Comments Establish Care pain Reason Comments Patient Question Hand Stripper - Other Reason Onset Date Comments Refill Request 08/23/2023 Reason Onset Date Comments Procedure 08/26/2023 HUERTA 48 Hour pH Capsule Placement Specialty Diagnoses / Procedures [facility] Diagnoses Gastroesophageal reflux disease, unspecified whether esophagitis present Procedures PH HUERTA INSERT ON [employer] GASTROESOPHAG REFLX TEST W/TELEMTRY PH Kasie Sherman MD [address] [place] [address] [facility] [address] [place] [address] Referral ID Status Reason Start Date Expiration Date V isits Requested Visits Authorized [id number] Closed Auto-Generate d Referral 04/28/2023 04/27/2024 1 1 Reason Onset Date Comments Procedure 08/31/2023 48 Hr HUERTA pH D ownload Reason Comments 10/20/2023 Diagnostic Laparosco py Reason Comments Established Patient 3 month follow up Reason Onset Date Comments Refill Request 09/20/2023 Altagracia Arnett RN - 01/30/2020 5:34 PM [...] cart, no distress noted. Emergency Department Report [facility] EMERGENCY DEPARTMENT Service Date:.01/30/20 PCP: Shanna June Chief Complaint: Chief Complaint Patient presents with Abdominal Pain RUQ abdominal pain that is spreading across her back and into the left side. pt states that she does not have a gallbladder or appendix and has been treated by [facility] recently for bowel adhesions and it [...] file Gets together: Not on file Attends mandaeism service: Not on file Active member of [...] with a prescription of Zofran and some [place] to help with some of the discomfort. [...] 4 mg, Intravenous, ONCE, 1 dose, On 5/18/21 at 1400 1412 (Given - Provid er: [...] 08/28/2021 08/29/2021 08/30/2021 bupivacaine-EPINEPHrine PF (MARCAINE-w/EPINEPHRINE) 0.5% -1:[id number] injection 10 mL (COMPLETED) 10 mL, Dental, [...] 5 days. 0754 (Given - Provid er: Favioal Álvarez RN) prochlorperazine (COMPAZINE) injection 10 mg (COMPLETED) 10 mg, IntraVENous, ONCE, 1 dose, On 10/31/22 at 0745, If administering IV push, administer at a maximum rate of 5 mg/minute. 0754 (Given - Provid er: Faviola Álvarez RN) Scheduled Medication Order 10/31/2022 11/01/2022 11/02/2022 [...] Danny Middleton RN) 08 (Given - Provider: aNdia Zee RN)2000 (Given - Provider: Eileen Austin RN) 902 (Given - Provider: Nadia Zee RN)2099 (Due) enoxaparin (Lovenox) syringe 40 mg 40 mg, subcutaneous, Daily, First dose on 03/06/23 at 1130 0840 (Given - Provider: Cole Nuñez RN) 08 (Given - Provider: Nadia Zee RN) 09 (Given - Provider: Nadia Zee RN) escitalopram (Lexapro) tablet 20 mg 20 mg, oral, Daily, First dose on Wed03/06/23 at 0900 0840 (Given - Provider: Cole Nuñez RN) 08 (Given - Provider: Nadia Zee RN) 901 (Given - Provider: Nadia Zee RN) famotidine (Pepcid) tablet 20 mg(Linked Group 1) 20 mg, oral, 2 times daily, First dose (after last modification) on Wed03/05/23 at 2100 0840 (Given - Provider: Cole Nuñez RN)2 (Given - Provider: Danny Middleton RN) 820 (Given - Provider: Nadia Zee RN)2000 (Given - Provider: Eileen Austin RN) 901 (Given - Provider: Nadia Zee RN)2099 (Due) famotidine PF (Pepcid) injection 20 mg(Linked Group 1) 20 mg, intravenous, 2 times daily, First dose (after last modification) on Wed03/05/23 at 2100, Give if unable to take by mouth or feeding tube. 0840 (See Alternative - Provider: Cole Nuñez RN)2 (See Alternative - Provider: Danny Middleton RN) 820 (See Alternative - Provider: Nadia Zee RN)2000 (See Alternative - Provider: Eileen Austin RN) 0902 (See Alternative - Provider: Nadia Zee RN)2100 [...] at 2100 2122 (Given - Provider: Danny Middleton, DEE) 2000 (Given - Provider: Eileen Austin RN) 2099 (Due) sennosides (Senokot) tablet 17.2 mg [...] 2100 0840 (Given - Provider: Cole Nuñez, RN)2122 (Given - Provider: Danny Middleton, RN) 0821 (Given - Provider: Nadia Zee, RN)2001 (Given - Provider: Eileen Austin, RN) 0907 (Given - Provider: Nadia Zee, RN)2100 (Due) Continuous Medication Order 03/08/2023 03/09/2023 03/10/2023 sodium chloride 0.45 % with KCl 20 mEq/L infusion 75 mL/hr, intravenous, Continuous, Starting on Wed03/07/23 at 1645 0230 (Rate/Dose Verify - Provider: Olga Paz RN)0852 (New Bag - Provider: Cole Nuñez RN) 0145 (New Bag - Provider: Danny Middleton, DEE)1954 (New Bag - Provider: Eielen Austin, RN) 0722 (New Bag - Provider: [...] Cole Nuñez, DEE)1716 (Given - Provider: Cole Nuñez, DEE) 0356 (Given - Provider: Danny Middleton, DEE)1012 (Given - Provider: Nadia Zee, DEE)1848 (Given - Provider: Nadia Zee, DEE) 0350 (Given - Provider: Eileen Austin, DEE) [...] at 1436 0011 (Given - Provider: Olga Paz, DEE)0410 (Given - Provider: Olga Paz, DEE)0637 (Given - Provider: Olga Paz, RN)0840 (Given - Provider: Cole Nuñez RN) [...] DEE) 0543 (See Alternative - Provider: Eileen Austin, DEE) [...] (See Alternative - Provider: Eileen Austin RN) 0543 (Given - Provider: Eileen Austin [...] Middleton RN)1102 (Given - Provider: Nadia Zee RN)195 (Given - Provider: Eileen Austin RN) 0006 (Given - Provider: Eileen Austin RN)1312 (Given - Provider: Nadia Zee RN) polyethylene glycol (Glycolax, Miralax) packet 17 g 17 g, oral, Daily PRN, constipation, Starting on Wed03/05/23 at 1514 prochlorperazine (Compazine) injection 10 mg(Linked Group 4) 10 mg, intravenous, Every 6 hours PRN, nausea/vomiting, first line, Starting on Wed03/06/23 at 1240, Give IV if patient is unable to take orally. 1119 (See Alternative - Provider: Cole Nuñez RN) 1622 (Given - Provider: Nadia Zee RN) 0902 (Given - Provider: Nadia Zee RN) prochlorperazine (Compazine) suppository 25 mg(Linked Group 4) 25 mg, rectal, Every 12 hours PRN, nausea/vomiting, first line, Starting on 03/06/23 at 1240, Give SC if patient is unable to take orally [...] line, Starting on 03/06/23 at 1240
Give SC if patient is unable to take orally [...] Campos RN) 08 (Given - Provider: Stacie Balnco RN)2099 (Due) cyanocobalamin (Vitamin B-12) tablet 50 [...] Nightly, First dose on Wed03/16/23 at 2100 2010 (Given - Provider: Nathalie Campos RN) 205 (Given - Provider: Nathalie Campos RN) 2100 [...] 0619 (See Alternative - Provider: Nathalie Campos RN)850 (See Alternative - Provider: Nathalie Campos RN) [...] 0619 (See Alternative - Provider: Nathalie Campos RN)710 (See Alternative - Provider: Nathalie Campos RN) [...] Provider: Nathalie Campos RN - Reason: Patient/family refused)2349 (Canceled Entry - Provider: Nathalie Campos RN) [...] RN)2136 (Given - Provider: Grecia Schaffer, DEE) 1006 (Given - Provider: Tory Mcmullen, DEE)1500 (Due)2100 (Due) calcium gluconate in NS IV 2 g 2 g, intravenous, at 100 mL/hr, Administer over 1 Hours, Once, On Wed06/29/23 at 2035, For 1 dose escitalopram (Lexapro) tablet 20 mg 20 mg, oral, Daily, First dose on Wed06/30/23 at 0900 0914 (Given - Provider: Beatriz Dow, DEE) 0826 (Given - Provider: Mariah Herrera RN) 1012 (Given - Provider: Tory Mcmullen, DEE) famotidine (Pepcid) tablet 20 mg 20 mg, oral, 2 times daily, First dose on Wed06/30/23 at 2100 0919 (Given - Provider: eBatriz Dow RN)2239 (Given - Provider: Andrew Potts RN) 0826 (Given - Provider: Mariah Herrera RN)2137 (Given [...] Balbuena LPN) 0552 (Given - Provider: Andrew Potts, DEE) 0605 (Given - Provider: Grecia Schaffer, DEE) [...] (after last modification) on Wed06/30/23 at 2099 223 (Given - Provider: Andrew Potts RN) 2135 (Given - Provider: Grecia Schaffer, DEE) 2099 (Due) morphine injection 4 mg (COMPLETED) 4 mg, intravenous, Once, On Wed07/01/23 at 1130, For 1 dose 1117 (Given [...] 0915 (Given - Provider: Beatriz Dow RN) 08 (Given - Provider: Mariah Herrera RN) 100 (Given - Provider: Tory Mcmullen, DEE) polyethylene glycol (Glycolax, Miralax) powder 17 g 17 g, oral, 2 times daily, First dose on Wed06/30/23 at 2099 0923 (Given - Provider: Beatriz Dow RN)2238 (Given - Provider: Andrew Potts RN - [...] 2099 0913 (Given - Provider: Beatriz Dow RN)2238 (Given - Provider: Siearra Delroy, RN) 0827 (Given - Provider: Mariah Herrera [...] Schaffer, DEE)0536 (Rate/Dose Verify - Provider: Grecia Schaffer RN)1000 (Stopped - Provider: Tory Mcmullen RN)1001 (New Bag - Provider: Tory Mcmullen RN) dextrose 10 % in water (D10W) infusion 75 mL/hr, intravenous, Continuous, Starting on Wed06/30/23 at 1945, Infuse only while clinimix is not running/infusing 0444 (Rate/Dose Verify - Provider: Mayda Balbuena LPN)1507 (Rate/Dose Verify - Provider: Beatriz Dow RN)1742 (Stopped - Provider: Beatriz Dow RN)2225 (New Bag - Provider: Andrew Potts, DEE) PRN Medication Order 07/01/2023 07/02/2023 07/03/2023 acetaminophen [...] Schaffer, DEE)1007 (Given - Provider: Tory Mcmullen, RN) morphine [...] Dow RN) 0532 (Given - Provider: Aliyah Galvan, RN)1120 (Given - Provider: Mariah Herrera RN) [...] Herrera RN)2136 (See Alternative - Provider: Grecia Schaffer, DEE) 0605 (See Alternative - Provider: Grecia Schaffer, DEE)1145 (See Alternative - Provider: Tory Mcmullen RN) oxyCODONE-acetaminophen (Percocet) 5-325 mg per tablet [...] Grecia Schaffer, DEE)1145 (Given - Provider: Tory Mcmullen RN) sodium [...] Attending Provider Active Start: July 17, 2023 3Rd Mate Relationship Specialty Start Date End Date Shanna June FNP [address] [place] [address] PCP - General Nurse Practitioner - Family 01/30/20 3Rd Mate Relationship Specialty Start Date End Date Shanna June, REAL ESTATE [employer]ENT [address] [place] [address] PCP - General Family Practice 01/31/20 Antelmo Davey [address] [place] [address] (Fax) 09/25/19 [place] [address] [place] [address] Consulting General Surgery 09/25/19 Shanna June, [facility] [address] [place] [address] Referring Family Practice 10/19/19 3Rd Mate Relationship Specialty Start Date End Date Shanna June CNP [address] [place] [address] PCP - General Family Practice 01/31/20 Antelmo Davey MD [address] [place] [address] (Fax) 09/25/19 [place] [address] [place] [address] Consulting General Surgery 09/25/19 Shanna June, REAL ESTATE AGENT [address] [place] [address] Referring Family Practice 10/19/19 3Rd Mate Relationship Specialty Start Date End Date Shanna June CNP [address] [place] [address] PCP - General Family Practice 01/31/20 Antelmo Davey MD [address] [place] [address] (Fax) 09/25/19 [place] [address] [address] [place] [address] Consulting General Surgery 09/25/19 Denver Junehanie BETH [address] [place] [address] Referring Family Practice 10/19/19 3Rd Mate Relationship Specialty Start Date End Date Shanna June CNP [address] [place] [address] PCP - General Family Practice 01/31/20 Antelmo Davey MD [address] [facility] [address] 09/25/19 [place] [address] [place] [address] Consulting General Surgery 09/25/19 SladeDenverShanna, REAL ESTATE AGENT [address] [place] [address] Referring Family Practice 10/19/19 3Rd Mate Relationship Specialty Start Date End Date Wally Foley [address] [facility] [address] PCP - General Specialist 07/27/21 3Rd Mate Relationship Specialty Start Date End Date SladeShanna CNP [address] [place] [address] PCP - General Family Practice 01/31/20 Antelmo Davey MD [address] [place] [address] 09/25/19 [place] [address] [place] [address] Consulting General Surgery 09/25/19 Shanna June CNP [address] [place] [address] Referring Family Practice 10/19/19 3Rd Mate Relationship Specialty Start Date End Date Shanna June CNP [address] [place] [address] PCP - General Family Practice 01/31/20 Antelmo Davey MD [address] [place] [facility] [address] (Fax) 09/25/19 [place] [address] [place] [address] Consulting General Surgery 09/25/19 SladeDenverShanna, REAL ESTATE AGENT [address] [place] [address] Referring Family Practice 10/19/19 3Rd Mate Relationship Specialty Start Date End Date SladeShannaBETH [address] [place] [address] PCP - General Family Practice 01/31/20 Antelmo Davey MD [address] [place] [facility] [place] [address] (Fax) 09/25/19 [place] [address] [place] [address] Consulting General Surgery 09/25/19 Shanna June CNP [address] [place] [address] Referring Family Practice 10/19/19 3Rd Mate Relationship Specialty Start Date End Date SladeDenverShannaBETH tomlin [address] [place] [address] PCP - General Family Practice 01/31/20 Antelmo Davey MD [address] [place] [address] (Fax) 09/25/19 [place] [address] [place] [address] Consulting General Surgery 09/25/19 Shanna June CNP [address] [place] [address] Referring Family Practice 10/19/19 3Rd Mate Relationship Specialty Start Date End Date SladeShannaBETH [address] [place] [address] PCP - General Family Practice 01/31/20 Antelmo Davey MD [address] [facility] [place] [address] 09/25/19 [place] [address] [place] [address] Consulting General Surgery 09/25/19 Shanna June CNP [address] [place] [address] Referring Family Practice 10/19/19 3Rd Mate Relationship Specialty Start Date End Date Slade BETH Otero [address] [place] [address] PCP - General Family Practice 01/31/20 Antelmo Davey MD [address] [place] [address] (Fax) 09/25/19 [place] [address] [place] [address] Consulting General Surgery 09/25/19 Shanna June CNP [address] [place] [address] Referring Family Practice 10/19/19 3Rd Mate Relationship Specialty Start Date End Date Wally Foley [address] [facility] [place] [address] PCP - General Specialist 07/27/21 3Rd Mate Relationship Specialty Start Date End Date Shanna June CNP [address] [place] [address] PCP - General Family Practice 01/31/20 Antelmo Davey MD [address] [place] [address] (Fax) 09/25/19 [place] [address] [place] [address] Consulting General Surgery 09/25/19 Shanna June CNP [address] [place] [address] Referring Family Practice 10/19/19 3Rd Mate Relationship Specialty Start Date End Date Shanna June CNP [address] [place] [address] PCP - General Family Practice 01/31/20 Antelmo Davey MD [address] [place] [address] (Fax) 09/25/19 [place] [address] [address] [place] [address] Consulting General Surgery 09/25/19 Shanna June CNP [address] [place] [address] Referring Family Practice 10/19/19 3Rd Mate Relationship Specialty Start Date End Date Shanna June CNP [address] [place] [address] PCP - General Family Practice 01/31/20 Antelmo Davey MD [address] [facility] [address] (Fax) 09/25/19 [place] [address] [address] [place] [address] Consulting General Surgery 09/25/19 SladeDenverShanna, REAL ESTATE AGENT [address] [place] [address] Referring Family Practice 10/19/19 3Rd Mate Relationship Specialty Start Date End Date SladeDenverShannaBETH tomlin [address] [place] [address] PCP - General Family Practice 01/31/20 Antelmo Davey MD [address] [place] [address] (Fax) 09/25/19 [place] [address] [address] [address] Consulting General Surgery 09/25/19 Shanna June REAL ESTATE AGENT [address] [place] [address] Referring Family Practice 10/19/19 3Rd Mate Relationship Specialty Start Date End Date SladeDenverShannaBETH tomlin [address] [place] [address] PCP - General Family Medicine 01/31/20 Antelmo Davey MD [address] [place] [address] (Fax) 09/25/19 [place] [address] [address] [address] Consulting General Surgery 09/25/19 Shanna June, REAL ESTATE AGENT [address] [place] [address] Referring Family Medicine 10/19/19 3Rd Mate Relationship Specialty Start Date End Date Shanna June CNP [address] [place] [address] PCP - General Family Medicine 01/31/20 Antlemo Davey MD [address] [place] [facility] [place] [address] (Fax) 09/25/19 [place] [address] [place] [address] Consulting General Surgery 09/25/19 SladeDenverShanna, REAL ESTATE AGENT [address] [place] [address] Referring Family Medicine 10/19/19 3Rd Mate Relationship Specialty Start Date End Date SladeShannaBETH [address] [place] [address] PCP - General Family Medicine 01/31/20 Antelmo Davey MD [address] [place] [facility] [place] [address] (Fax) 09/25/19 [place] [address] [place] [address] Consulting General Surgery 09/25/19 Slade ShannaBETH tomlin [address] [place] [address] Referring Family Medicine 10/19/19 3Rd Mate Relationship Specialty Start Date End Date SladeDenverShannaBETH tomlin [address] [place] [address] PCP - General Family Medicine 01/31/20 Antelmo Davey MD [address] [place] [address] (Fax) 09/25/19 [place] [address] [place] [address] Consulting General Surgery 09/25/19 SladeDenverShanna, REAL ESTATE AGENT [address] [place] [address] Referring Family Medicine 10/19/19 3Rd Mate Relationship Specialty Start Date End Date Shanna June REAL ESTATE AGENT [address] [place] [address] PCP - General Family Medicine 01/31/20 Antelmo Davey MD [address] [place] [facility] [place] [address] (Fax) 09/25/19 [place] [address] [place] [address] Consulting General Surgery 09/25/19 Shanna June, REAL ESTATE AGENT [address] [place] [address] Referring Family Medicine 10/19/19 3Rd Mate Relationship Specialty Start Date End Date SladeShannaBETH [address] [place] [address] PCP - General Family Medicine 01/31/20 Antelmo Davey MD [address] [place] [facility] [place] [address] (Fax) 09/25/19 [place] [address] [place] [address] Consulting General Surgery 09/25/19 Shanna June, BETH [address] [place] [address] Referring Family Medicine 10/19/19 3Rd Mate Relationship Specialty Start Date End Date Shanna uJne, BETH [address] [place] [address] PCP - General Family Medicine 01/31/20 Antelmo Davey MD [address] [place] [address] (Fax) 09/25/19 [place] [address] [place] [address] Consulting General Surgery 09/25/19 Shanna June, REAL ESTATE AGENT [address] [place] [address] Referring Family Medicine 10/19/19 3Rd Mate Relationship Specialty Start Date End Date Shanna June CNP [address] [place] [address] PCP - General Family Medicine 01/31/20 Antelmo Davey MD [address] [place] [address] 09/25/19 [place] [address] [place] [address] Consulting General Surgery 09/25/19 Shanna June, BETH [address] [place] [address] Referring Family Medicine 10/19/19 3Rd Mate Relationship Specialty Start Date End Date Shanna June, BETH [address] [place] [address] PCP - General Family Medicine 01/31/20 Antelmo Davey MD [address] [place] [facility] [address] (Fax) 09/25/19 [place] [address] [place] [address] Consulting General Surgery 09/25/19 Shanna June, REAL ESTATE AGENT [address] [place] [address] Referring Family Medicine 10/19/19 3Rd Mate Relationship Specialty Start Date End Date Shanna June, REAL ESTATE AGENT [address] [place] [address] PCP - General Family Medicine 01/31/20 Antelmo Davey MD [address] [place] [address] (Fax) 09/25/19 [place] [address] [place] [address] Consulting General Surgery 09/25/19 Shanna June, REAL ESTATE AGENT [address] [place] [address] Referring Family Medicine 10/19/19 3Rd Mate Relationship Specialty Start Date End Date Shanna June, REAL ESTATE AGENT [address] [place] [address] PCP - General Family Medicine 01/31/20 Antelmo Davey MD [address] [place] [address] (Fax) 09/25/19 [place] [address] [place] [address] Consulting General Surgery 09/25/19 Shanna June, BETH [address] [place] [address] Referring Family Medicine 10/19/19 3Rd Mate Relationship Specialty Start Date End Date Shanna June CNP [address] [place] [address] PCP - General Family Medicine 01/31/20 Antelmo Davey MD [address] [place] [facility] [place] [address] 09/25/19 [place] [address] [place] [address] Consulting General Surgery 09/25/19 Shanna June, REAL ESTATE AGENT [address] [place] [address] Referring Family Medicine 10/19/19 3Rd Mate Relationship Specialty Start Date End Date Wally Foley MD [address] [facility] [place] [address] PCP - General Family Medicine 01/19/22 Antelmo Davey MD [address] [place] [facility] [place] [address] 09/25/19 [place] [address] [place] [address] Consulting General Surgery 09/25/19 Shanna June, REAL ESTATE AGENT [address] [place] [address] Referring Family Medicine 10/19/19 3Rd Mate Relationship Specialty Start Date End Date Wally Foley MD [address] [place] [address] PCP - General Family Medicine 01/19/22 Antelmo Davey MD [address] [place] [address] (Fax) 09/25/19 [place] [address] [place] [address] Consulting General Surgery 09/25/19 Shanna June, REAL ESTATE AGENT [address] [place] [address] Referring Family Medicine 10/19/19 3Rd Mate Relationship Specialty Start Date End Date Wally Foley MD [address] [place] [address] PCP - General Family Medicine 01/19/22 Antelmo Davey MD [address] [place] [address] (Fax) 09/25/19 [place] [address] [place] [address] Consulting General Surgery 09/25/19 Shanna June, REAL ESTATE AGENT [address] [place] [address] Referring Family Medicine 10/19/19 3Rd Mate Relationship Specialty Start Date End Date Wally Foley MD [address] [place] [address] PCP - General Family Medicine 01/19/22 Antelmo Davey MD [address] [place] [address] (Fax) 09/25/19 [place] [address] [place] [address] Consulting General Surgery 09/25/19 Shanna June, REAL ESTATE AGENT [address] [place] [address] Referring Family Medicine 10/19/19 3Rd Mate Relationship Specialty Start Date End Date Wally Foley MD [address] [place] [address] PCP - General Family Medicine 01/19/22 Antelmo Davey MD [address] [place] [address] (Fax) 09/25/19 [place] [address] [place] [address] Consulting General Surgery 09/25/19 Shanna June, REAL ESTATE AGENT [address] [place] [address] Referring Family Medicine 10/19/19 3Rd Mate Relationship Specialty Start Date End Date Wally Foley MD [address] [place] [address] PCP - General Family Medicine 01/19/22 Antelmo Davey MD [address] [facility] [place] [address] (Fax) 09/25/19 [place] [address] [place] [address] Consulting General Surgery 09/25/19 Shanna June, REAL ESTATE AGENT [address] [place] [address] Referring Family Medicine 10/19/19 3Rd Mate Relationship Specialty Start Date End Date Wally Foley MD [address] [facility] [place] [address] PCP - General Family Medicine 01/19/22 Antelmo Daevy MD [address] [place] [address] (Fax) 09/25/19 [place] [address] [place] [address] Consulting General Surgery 09/25/19 Shanna June, REAL ESTATE AGENT [address] [place] [address] Referring Family Medicine 10/19/19 3Rd Mate Relationship Specialty Start Date End Date Wally Foley MD [address] [facility] [place] [address] PCP - General Family Medicine 01/19/22 Antelmo Davey MD [address] [place] [address] (Fax) 09/25/19 [place] [address] [address] [place] [address] Consulting General Surgery 09/25/19 Shanna June, REAL ESTATE AGENT [address] [place] [address] Referring Family Medicine 10/19/19 3Rd Mate Relationship Specialty Start Date End Date Wally Foley MD [address] [place] [address] PCP - General Family Medicine 01/19/22 Antelmo Davey MD [address] [place] [address] (Fax) 09/25/19 [place] [address] [place] [address] Consulting General Surgery 09/25/19 Shanna June, REAL ESTATE AGENT [address] [place] [address] Referring Family Medicine 10/19/19 3Rd Mate Relationship Specialty Start Date End Date Wally Foley MD [address] [place] [address] PCP - General Family Medicine 01/19/22 Antelmo Davey MD [address] [place] [address] (Fax) 09/25/19 [place] [address] [facility] [place] [address] Consulting General Surgery 09/25/19 Shanna June, REAL ESTATE AGENT [address] [place] [address] Referring Family Medicine 10/19/19 3Rd Mate Relationship Specialty Start Date End Date Wally Foley MD [address] [place] [address] PCP - General Family Medicine 01/19/22 Antelmo Davey MD [address] [facility] [place] [address] 09/25/19 [place] [address] [facility] [place] [address] Consulting General Surgery 09/25/19 Shanna June, REAL ESTATE AGENT [address] [place] [address] Referring Family Medicine 10/19/19 3Rd Mate Relationship Specialty Start Date End Date Wally Foley MD [address] [facility] [place] [address] PCP - General Family Medicine 01/19/22 Antelmo Davey MD [address] [place] [facility] [address] 09/25/19 [place] [address] [facility] [place] [address] Consulting General Surgery 09/25/19 Shanna June, REAL ESTATE AGENT [address] [place] [address] Referring Family Medicine 10/19/19 Agustin Valentino [address] [place] [address] [place] [address] Referring Family Medicine 05/13/22 3Rd Mate Relationship Specialty Start Date End Date Jaquan Morrow [address] [place] [address] PCP - General 06/16/22 Antelmo Davey MD [address] [place] [address] 09/25/19 [place] [address] [place] [address] Consulting General Surgery 09/25/19 Shanna June, REAL ESTATE AGENT [address] [place] [address] Referring Family Medicine 10/19/19 Agustin Valentino [address] [facility] 150 [place] [address] Referring Family Medicine 05/13/22 3Rd Mate Relationship Specialty Start Date End Date Jaquan Morrow [address] [place] [address] PCP - General 06/16/22 Antelmo Davey MD [address] [place] [address] 09/25/19 [place] [address] [place] [address] Consulting General Surgery 09/25/19 Shanna June, REAL ESTATE AGENT [address] [place] [address] Referring Family Medicine 10/19/19 Agustin Valentino [address] [place] [address] Referring Family Medicine 05/13/22 3Rd Mate Relationship Specialty Start Date End Date Jaquan Morrow [address] [place] [address] PCP - General 06/16/22 Antelmo Davey MD [address] [place] [address] 09/25/19 [place] [address] [place] [address] Consulting General Surgery 09/25/19 Shanna June, REAL ESTATE AGENT [address] [place] [address] Referring Family Medicine 10/19/19 Agustin Valentino [address] [facility] [address] [place] [address] Referring Family Medicine 05/13/22 3Rd Mate Relationship Specialty Start Date End Date Jaquan Morrow [address] [place] [address] PCP - General 06/16/22 Antelmo Davey MD [address] [place] [address] 09/25/19 [place] [address] [facility] [place] [address] Consulting General Surgery 09/25/19 Shanna June, REAL ESTATE AGENT [address] [place] [address] Referring Family Medicine 10/19/19 Agustin Valentino [address] [facility] 150 [place] [address] Referring Family Medicine 05/13/22 3Rd Mate Relationship Specialty Start Date End Date Jaquan Morrow [address] [place] [address] PCP - General 06/16/22 Antelmo Davey MD [address] [place] [address] 09/25/19 [place] [address] [place] [address] Consulting General Surgery 09/25/19 Shanna June, REAL ESTATE AGENT [address] [place] [address] Referring Family Medicine 10/19/19 Agustin Valentino [address] [facility] 150 [place] [address] Referring Family Medicine 05/13/22 3Rd Mate Relationship Specialty Start Date End Date Jaquan Morrow [address] [place] [address] PCP - General 06/16/22 Antelmo Davey MD [address] [place] [facility] [place] [place] [address] 09/25/19 [place] [address] [facility] [place] [address] Consulting General Surgery 09/25/19 Shanna June, REAL ESTATE AGENT [address] [place] [address] Referring Family Medicine 10/19/19 Agustin Valentino [address] [facility] [address] [place] [address] Referring Family Medicine 05/13/22 3Rd Mate Relationship Specialty Start Date End Date Jaquan Morrow [address] [place] [address] PCP - General 06/16/22 Antelmo Davey MD [address] [place] [address] 09/25/19 [place] [address] [place] [address] Consulting General Surgery 09/25/19 Shanna June, REAL ESTATE AGENT [address] [place] [address] Referring Family Medicine 10/19/19 Agustin Valentino [address] [facility] 150 [place] [address] Referring Family Medicine 05/13/22 3Rd Mate Relationship Specialty Start Date End Date Jaquan Morrow [address] [place] [address] PCP - General 06/16/22 Antelmo Davey MD [address] [place] [address] 09/25/19 [place] [address] [place] [address] Consulting General Surgery 09/25/19 Shanna June, REAL ESTATE AGENT [address] [place] [address] Referring Family Medicine 10/19/19 Agustin Valentino [address] [facility] 150 [place] [address] Referring Family Medicine 05/13/22 3Rd Mate Relationship Specialty Start Date End Date Jaquan Morrow [address] [place] [address] PCP - General 06/16/22 Antelmo Davey MD [address] [place] [address] 09/25/19 [place] [address] [place] [address] Consulting General Surgery 09/25/19 Shanna June, REAL ESTATE AGENT [address] [place] [address] Referring Family Medicine 10/19/19 Agustin Valentino [address] [address] [place] [address] Referring Family Medicine 05/13/22 3Rd Mate Relationship Specialty Start Date End Date Jaquan Morrow [address] [place] [address] PCP - General 06/16/22 Antelmo Davey MD [address] [facility] [place] [address] 09/25/19 [place] [address] [place] [address] Consulting General Surgery 09/25/19 Shanna June, REAL ESTATE AGENT [address] [place] [address] Referring Family Medicine 10/19/19 Agustin Valentino [address] [facility] [address] [place] [address] Referring Family Medicine 05/13/22 3Rd Mate Relationship Specialty Start Date End Date Jaquan Morrow [address] [place] [address] PCP - General 06/16/22 Antelmo Davey MD [address] [place] [address] (Fax) 09/25/19 [place] [address] [place] [address] Consulting General Surgery 09/25/19 Shanna June, REAL ESTATE AGENT [address] [place] [address] Referring Family Medicine 10/19/19 Agustin Valentino [address] [place] [address] [place] [address] Referring Family Medicine 05/13/22 3Rd Mate Relationship Specialty Start Date End Date Crsithian, Jaquan [address] [place] [address] PCP - General 06/16/22 Antelmo Davey MD [address] [place] [address] (Fax) 09/25/19 [place] [address] [place] [address] Consulting General Surgery 09/25/19 Shanna June, REAL ESTATE AGENT [address] [place] [address] Referring Family Medicine 10/19/19 Agustin Valentino [address] [place] [address] [place] [address] Referring Family Medicine 05/13/22 3Rd Mate Relationship Specialty Start Date End Date Jaquan Morrow [address] [place] [address] PCP - General 06/16/22 Antelmo Davey MD [address] [place] [address] (Fax) 09/25/19 [place] [address] [place] [address] Consulting General Surgery 09/25/19 Shanna June CNP [address] [place] [address] Referring Family Medicine 10/19/19 Agustin Valentino PA [address] [place] [address] [place] [address] Referring Family Medicine 05/13/22 3Rd Mate Relationship Specialty Start Date End Date Jaquan Morrow [address] [place] [address] PCP - General 06/16/22 Antelmo Davey MD [address] [place] [address] (Fax) 09/25/19 [place] [address] [place] [address] Consulting General Surgery 09/25/19 Shanna June CNP [address] [place] [address] Referring Family Medicine 10/19/19 Agustin Valentino PA [address] [place] [address] [place] [address] Referring Family Medicine 05/13/22 3Rd Mate Relationship Specialty Start Date End Date Wally Foley [address] [place] [address] PCP - General Specialist 07/27/21 3Rd Mate Relationship Specialty Start Date End Date Shanna June FNP [address] [place] [address] PCP - General Nurse Practitioner - Family 01/30/20 3Rd Mate Relationship Specialty Start Date End Date Jaquan Morrow [address] [place] [address] PCP - General 06/16/22 Antelmo Davey MD [address] [place] [address] 09/25/19 [place] [address] [place] [address] Consulting General Surgery 09/25/19 Shanna June CNP [address] [place] [address] Referring Family Medicine 10/19/19 Agustin Valentino PA [address] [facility] 150 [place] [address] Referring Family Medicine 05/13/22 3Rd Mate Relationship Specialty Start Date End Date Jaquan Morrow [address] [place] [address] PCP - General 06/16/22 Antelmo Davey MD [address] [place] [address] (Fax) 09/25/19 [place] [address] [place] [address] Consulting General Surgery 09/25/19 Shanna June CNP [address] [place] [address] Referring Family Medicine 10/19/19 Agustin Valentino PA [address] [facility] 150 [place] [address] Referring Family Medicine 05/13/22 3Rd Mate Relationship Specialty Start Date End Date Jaquan Morrow [address] [place] [address] PCP - General 06/16/22 Antelmo Davey MD [address] [place] [address] 09/25/19 [place] [address] [place] [address] Consulting General Surgery 09/25/19 Shanna June CNP [address] [place] [address] Referring Family Medicine 10/19/19 Agustin Valentino PA [address] [facility] 150 [place] [address] Referring Family Medicine 05/13/22 3Rd Mate Relationship Specialty Start Date End Date Jaquan Morrow [address] [place] [address] PCP - General 06/16/22 Antelmo Davey MD [address] [place] [address] (Fax) 09/25/19 [place] [address] [place] [address] Consulting General Surgery 09/25/19 Shanna June, BETH [address] [place] [address] Referring Family Medicine 10/19/19 Agustin Valentino PA [address] [place] [address] [place] [address] Referring Family Medicine 05/13/22 3Rd Mate Relationship Specialty Start Date End Date Jaquan Morrow [address] [place] [address] PCP - General 06/16/22 Antelmo Davey MD [address] [place] [address] 09/25/19 [place] [address] [place] [address] Consulting General Surgery 09/25/19 Shanna June CNP [address] [place] [address] Referring Family Medicine 10/19/19 Agustin Valentino PA [address] [facility] 150 [place] [address] Referring Family Medicine 05/13/22 3Rd Mate Relationship Specialty Start Date End Date Jaquan Morrow [address] [place] [address] PCP - General 06/16/22 Antelmo Davey MD [address] [place] [address] 09/25/19 [place] [address] [place] [address] Consulting General Surgery 09/25/19 Shanna June, BETH [address] [place] [address] Referring Family Medicine 10/19/19 Agustin Valentino PA [address] [facility] [place] [address] Referring Family Medicine 05/13/22 3Rd Mate Relationship Specialty Start Date End Date Jaquan Morrow [address] [place] [address] PCP - General 06/16/22 Antelmo Davey MD [address] [place] [address] 09/25/19 [place] [address] [place] [address] Consulting General Surgery 09/25/19 Shanna June, REAL ESTATE AGENT [address] [place] [address] Referring Family Medicine 10/19/19 Agustin Valentino PA [address] [place] [address] Referring Family Medicine 05/13/22 3Rd Mate Relationship Specialty Start Date End Date Jaquan Morrow [address] [place] [address] PCP - General 06/16/22 Antelmo Davey MD [address] [place] [address] (Fax) 09/25/19 [place] [address] [place] [address] Consulting General Surgery 09/25/19 Shanna June, REAL ESTATE AGENT [address] [place] [address] Referring Family Medicine 10/19/19 Agustin Valentino PA [address] [facility] [place] [address] Referring Family Medicine 05/13/22 3Rd Mate Relationship Specialty Start Date End Date Jaquan Morrow [address] [place] [address] PCP - General 06/16/22 Antelmo Davey MD [address] [place] [address] (Fax) 09/25/19 [place] [address] [place] [address] Consulting General Surgery 09/25/19 Shanna June CNP [address] [place] [address] Referring Family Medicine 10/19/19 Agustin Valentino PA [address] [facility] [place] [address] Referring Family Medicine 05/13/22 3Rd Mate Relationship Specialty Start Date End Date Jaquan Morrow [address] [place] [address] PCP - General 06/16/22 Antelmo Davey MD [address] [place] [address] (Fax) 09/25/19 [place] [address] [place] [address] Consulting General Surgery 09/25/19 Shanna June CNP [address] [place] [address] Referring Family Medicine 10/19/19 Agustin Valentino PA [address] [facility] [address] [place] [address] Referring Family Medicine 05/13/22 3Rd Mate Relationship Specialty Start Date End Date Jaquan Morrow [address] [place] [address] PCP - General 06/16/22 Antelmo Davey MD [address] [place] [address] (Fax) 09/25/19 [place] [address] [place] [address] Consulting General Surgery 09/25/19 Shanna June CNP [address] [place] [address] Referring Family Medicine 10/19/19 Agustin Valentino PA [address] [facility] [place] [address] Referring Family Medicine 05/13/22 3Rd Mate Relationship Specialty Start Date End Date Jaquan Morrow [address] [place] [address] PCP - General 06/16/22 Antelmo Davey MD [address] [place] [address] (Fax) 09/25/19 [place] [address] [place] [address] Consulting General Surgery 09/25/19 Shanna June, BETH [address] [place] [address] Referring Family Medicine 10/19/19 Agustin Valentino PA [address] [facility] [address] [place] [address] Referring Family Medicine 05/13/22 3Rd Mate Relationship Specialty Start Date End Date Jaquan Morrow [address] [place] [address] PCP - General 06/16/22 [employer] Boys[facility] dickson MD [address] [place] [address] 09/25/19 [place] [address] [place] [address] Consulting General Surgery 09/25/19 Shanna June, REAL ESTATE AGENT [address] [place] [address] Referring Family Medicine 10/19/19 Agustin Valentino PA [address] [facility] [address] [place] [address] Referring Family Medicine 05/13/22 3Rd Mate Relationship Specialty Start Date End Date Jaquan Morrow [address] [place] [address] PCP - General 06/16/22 Antelmo Davey MD [address] [place] [address] (Fax) 09/25/19 [place] [address] [place] [address] Consulting General Surgery 09/25/19 Shanna June, BETH [address] [place] [address] Referring Family Medicine 10/19/19 Agustin Valentino PA [address] [place] [address] Referring Family Medicine 05/13/22 3Rd Mate Relationship Specialty Start Date End Date Jaquan Morrow [address] [place] [address] PCP - General 06/16/22 Antelmo Davey MD [address] [place] [address] (Fax) 09/25/19 [place] [address] [place] [address] Consulting General Surgery 09/25/19 Shanna June, REAL ESTATE AGENT [address] [place] [address] Referring Family Medicine 10/19/19 Agustin Valentino, PA [address] [facility] [address] [place] [address] Referring Family Medicine 05/13/22 3Rd Mate Relationship Specialty Start Date End Date Linda Morrowdi [address] [place] [address] PCP - General 06/16/22 Antelmo Davey MD [address] [place] [address] (Fax) 09/25/19 [place] [address] [place] [address] Consulting General Surgery 09/25/19 Shanna June, BETH [address] [place] [address] Referring Family Medicine 10/19/19 Agustin Valentino PA [address] [place] [address] [place] [address] Referring Family Medicine 05/13/22 3Rd Mate Relationship Specialty Start Date End Date Jaquan Morrow [address] [place] [address] PCP - General 06/16/22 Antelmo Davey MD [address] [place] [address] (Fax) 09/25/19 [place] [address] [place] [address] Consulting General Surgery 09/25/19 Shanna June, REAL ESTATE AGENT [address] [place] [address] Referring Family Medicine 10/19/19 Agustin Valentino PA [address] [place] [address] [place] [address] Referring Family Medicine 05/13/22 3Rd Mate Relationship Specialty Start Date End Date Jaquan Morrow [address] [place] [address] PCP - General 06/16/22 Antelmo Davey MD [address] [place] [address] (Fax) 09/25/19 [place] [address] [place] [address] Consulting General Surgery 09/25/19 Shanna June CNP [address] [place] [address] Referring Family Medicine 10/19/19 Agustin Valentino PA [address] [facility] [address] Referring Family Medicine 05/13/22 3Rd Mate Relationship Specialty Start Date End Date Jaquan Morrow [address] [place] [address] PCP - General 06/16/22 Antelmo Davey MD [address] [place] [address] (Fax) 09/25/19 [place] [address] [place] [address] Consulting General Surgery 09/25/19 Shanna June CNP [address] [place] [address] Referring Family Medicine 10/19/19 Agustin Valentino PA [address] [facility] [address] [place] [address] Referring Family Medicine 05/13/22 3Rd Mate Relationship Specialty Start Date End Date Jaquan Morrow [address] [place] [address] PCP - General 06/16/22 Antelmo Davey MD [address] [place] [address] (Fax) 09/25/19 [place] [address] [place] [address] Consulting General Surgery 09/25/19 Shanna June CNP [address] [place] [address] Referring Family Medicine 10/19/19 Agustin Valentino PA [address] [facility] [address] [place] [address] Referring Family Medicine 05/13/22 3Rd Mate Relationship Specialty Start Date End Date Jaquan Morrow APRN.REAL ESTATE AGENT [address] [place] [address] PCP - General 06/16/22 Antelmo Davey MD [address] [facility] [place] [address] (Fax) 09/25/19 [place] [address] [place] [address] Consulting General Surgery 09/25/19 Shanna June, BETH [address] [place] [address] Referring Family Medicine 10/19/19 Agustin Valentino PA [address] [place] [address] [address] Referring Family Medicine 05/13/22 3Rd Mate Relationship Specialty Start Date End Date Jaquan Morrow, INVENTORY ADMINISTRATOR.REAL ESTATE AGENT [address] [place] [address] PCP - General 06/16/22 Antelmo Davey MD [address] [place] [address] 09/25/19 [place] [address] [place] [address] Consulting General Surgery 09/25/19 Shanna June, BETH [address] [place] [address] Referring Family Medicine 10/19/19 Agustin Valentino PA [address] [facility] [address] [place] [address] Referring Family Medicine 05/13/22 3Rd Mate Relationship Specialty Start Date End Date Jaquan Morrow, INVENTORY ADMINISTRATOR.REAL ESTATE AGENT [address] [place] [address] PCP - General 06/16/22 Antelmo Davey MD [address] [facility] [place] [address] (Fax) 09/25/19 [place] [address] [place] [address] Consulting General Surgery 09/25/19 Shanna June, BETH [address] [place] [address] Referring Family Medicine 10/19/19 Agustin Valentino PA [address] [facility] [address] [place] [address] Referring Family Medicine 05/13/22 3Rd Mate Relationship Specialty Start Date End Date Jaquan Morrow, INVENTORY ADMINISTRATOR.REAL ESTATE AGENT [address] [place] [address] PCP - General 06/16/22 Antelmo Davey MD [address] [place] [address] (Fax) 09/25/19 [place] [address] [place] [address] Consulting General Surgery 09/25/19 Shanna June CNP [address] [place] [address] Referring Family Medicine 10/19/19 Agustin Valentino PA [address] [address] Referring Family Medicine 05/13/22 3Rd Mate Relationship Specialty Start Date End Date Jaquan Morrow APRN.REAL ESTATE AGENT [address] [place] [address] PCP - General 06/16/22 Antelmo Davey MD [address] [place] [address] 09/25/19 [place] [address] [place] [address] Consulting General Surgery 09/25/19 Shanna June CNP [address] [place] [address] Referring Family Medicine 10/19/19 Agustin Valentino PA [address] [address] Referring Family Medicine 05/13/22 Team Status: Active Member Role Status Dates Jaquan Morrow , 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 Primary Care Provider Active Team Status: Inactive Member Role Status Dates Jaquan Morrow , 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 Primary Care Provider Active Claus Obrien DO Emergency Provider Active Roseline eMjia DO RES Active 3Rd Mate Relationship Specialty Start Date End Date Generic Provider, No Assigned [facility]cp[facility] [address] [place] [address] PCP - General Family Medicine 01/02/23 3Rd Mate Relationship Specialty Start Date End Date Generic Provider, No Assigned Pcp[facility] [address] [place] [address] PCP - General Family Medicine 01/02/23 Team [...] 2023 End: April 06, 2023 Trace Lowery [facility] Emergency Provider Active Start: April 06, 2023 End: April 06, 2023 3Rd Mate Relationship Specialty Start Date End Date Generic Provider, No Assigned PcpMD [address] [place] [address] PCP - [facility] Medicine 01/02/23 3Rd Mate Relationship Specialty Start Date End Date Jaquan Morrow APRN.REAL ESTATE AGENT [address] [place] [address] PCP - General 06/16/22 Antelmo Davey MD [address] [place] [address] 09/25/19 [place] [address] [place] [address] Consulting General Surgery 09/25/19 Shanna June, BETH [address] [place] [address] Referring Family Medicine 10/19/19 Agustin Valentino PA [address] [facility] [address] [place] [address] Referring Family Medicine 05/13/22 3Rd Mate Relationship Specialty Start Date End Date Generic Provider, No Assigned Pcp, [address] [place] [id number] PCP - General Family Medicine 01/02/23 3Rd Mate Relationship Specialty Start Date End Date Jaquan Morrow, INVENTORY ADMINISTRATOR.REAL ESTATE AGENT [address] [place] [address] PCP - General 06/16/22 Antelmo Davey MD [address] [place] [address] 09/25/19 [place] [address] [place] [address] Consulting General Surgery 09/25/19 Shanna June, BETH [address] [place] [address] Referring Family Medicine 10/19/19 Agustin Valentino PA [address] [facility] [place] [address] Referring Family Medicine 05/13/22 3Rd Mate Relationship Specialty Start Date End Date Jaquan Morrow, INVENTORY ADMINISTRATOR.REAL ESTATE AGENT [address] [place] [address] PCP - General 06/16/22 Antelmo Davey MD [address] [place] [address] 09/25/19 [place] [address] [place] [address] Consulting General Surgery 09/25/19 Shanna June, BETH [address] [place] [address] Referring Family Medicine 10/19/19 Agustin Valentino PA [address] [place] [address] Referring Family Medicine 05/13/22 3Rd Mate Relationship Specialty Start Date End Date Jaquan Morrow, INVENTORY ADMINISTRATOR.REAL ESTATE AGENT [address] [place] [address] PCP - General 06/16/22 Antelmo Davey MD [address] [facility] [place] [address] 09/25/19 [place] [address] [place] [address] Consulting General Surgery 09/25/19 Shanna June CNP [address] [place] [address] Referring Family Medicine 10/19/19 Agustin Valentino PA [address] [place] [address] Referring Family Medicine 05/13/22 3Rd Mate Relationship Specialty Start Date End Date Jaquan Morrow, INVENTORY ADMINISTRATOR.REAL ESTATE AGENT [address] [place] [address] PCP - General 06/16/22 Antelmo Davey MD [address] [place] [address] (Fax) 09/25/19 [place] [address] [place] [address] Consulting General Surgery 09/25/19 Shanna June CNP [address] [place] [address] Referring Family Medicine 10/19/19 Agustin Valentino PA [address] [place] [address] Referring Family Medicine 05/13/22 3Rd Mate Relationship Specialty Start Date End Date Jaquan Morrow, INVENTORY ADMINISTRATOR.REAL ESTATE AGENT [address] [place] [address] PCP - General 06/16/22 Antelmo Davey MD [address] [place] [address] 09/25/19 [place] [address] [place] [address] Consulting General Surgery 09/25/19 Shanna June, BETH [address] [place] [address] Referring Family Medicine 10/19/19 Agustin Valentino PA [address] [facility] [address] [place] [address] Referring Family Medicine 05/13/22 3Rd Mate Relationship Specialty Start Date End Date Generic Provider, No Assigned PcpMD PCP - General Family Medicine 01/02/23 3Rd Mate Relationship Specialty Start Date End Date Jaquan Morrow, INVENTORY ADMINISTRATOR.REAL ESTATE AGENT [address] [place] [address] PCP - General 06/16/22 Antelmo Davey MD [address] [place] [address] 09/25/19 [place] [address] [place] [address] Consulting General Surgery 09/25/19 Shanna June, BETH [address] [place] [address] Referring Family Medicine 10/19/19 Agustin Valentino PA [address] [facility] [address] [place] [address] Referring Family Medicine 05/13/22 3Rd Mate Relationship Specialty Start Date End Date Generic Provider, [place] [address] PCP - General Preservationist 06/29/23 3Rd Mate Relationship Specialty Start Date End Date Generic Provider, [place] [address] PCP - General Preservationist 06/29/23 3Rd Mate Relationship Specialty Start Date End Date Jaquan Morrow, INVENTORY ADMINISTRATOR.REAL ESTATE AGENT [address] [place] [address] PCP - General 06/16/22 Antelmo Davey MD [address] [place] [address] 09/25/19 [place] [address] [place] [address] Consulting General Surgery 09/25/19 Shanna June CNP [address] [place] [address] Referring Family Medicine 10/19/19 Agustin Valentino PA [address] [place] [address] Referring Family Medicine 05/13/22 3Rd Mate Relationship Specialty Start Date End Date Jaquan Morrow, INVENTORY ADMINISTRATOR.REAL ESTATE AGENT [address] [place] [address] PCP - General 06/16/22 Antelmo Davey MD [address] [place] [address] 09/25/19 [place] [address] [place] [address] Consulting General Surgery 09/25/19 Shanna June, BETH [address] [place] [address] Referring Family Medicine 10/19/19 Agustin Valentino PA [address] [facility] [address] [place] [address] Referring Family Medicine 05/13/22 3Rd Mate Relationship Specialty Start Date End Date Jaquan Morrow, INVENTORY ADMINISTRATOR.REAL ESTATE AGENT [address] [place] [address] PCP - General 06/16/22 Antelmo Davey MD [address] [place] [address] 09/25/19 [place] [address] [place] [address] Consulting General Surgery 09/25/19 Shanna June, REAL ESTATE AGENT [address] [place] [address] Referring Family Medicine 10/19/19 Agustin Valentino PA [address] [place] [address] [place] [address] Referring Family Medicine 05/13/22 3Rd Mate Relationship Specialty Start Date End Date Jaquan Morrow, INVENTORY ADMINISTRATOR.REAL ESTATE AGENT [address] [place] [address] PCP - General 06/16/22 Antelmo Davey MD [address] [facility] [place] [address] 09/25/19 [place] [address] [place] [address] Consulting General Surgery 09/25/19 Shanna June, REAL ESTATE AGENT [address] [place] [address] Referring Family Medicine 10/19/19 Agustin Valentino PA [address] [place] [address] Referring Family Medicine 05/13/22 3Rd Mate Relationship Specialty Start Date End Date Jaquan Morrow, INVENTORY ADMINISTRATOR.REAL ESTATE AGENT [address] [place] [address] PCP - General 06/16/22 Antelmo Davey MD [address] [facility] [place] [address] 09/25/19 [place] [address] [place] [address] Consulting General Surgery 09/25/19 Shanna June CNP [address] [place] [address] Referring Family Medicine 10/19/19 Agustin Valentino PA [address] [place] [address] Referring Family Medicine 05/13/22 Team Status: Inactive Member Role Status Dates Thomas Calix MD Primary Care Provider Active Start: July 17, 2023 End: July 17, 2023 LISA DicksonC Emergency Provider Active Start: July 17, 2023 End: July 17, 2023 Camden Rodriguez DO Admit Provider, Attending Provider Active Start: July 17, 2023 End: July 17, 2023 Keven Kimbrough MD Other Provider Active Start: July 17, 2023 End: July 17, 2023 3Rd Mate Relationship Specialty Start Date End Date Jaquan Morrow, INVENTORY ADMINISTRATOR.REAL ESTATE AGENT [address] [place] [address] PCP - General 06/16/22 Antelmo Davey MD [address] [place] [address] 09/25/19 [place] [address] [place] [address] Consulting General Surgery 09/25/19 Shanna June CNP [address] [place] [address] Referring Family Medicine 10/19/19 Agustin Valentino PA [address] [address] [place] [address] Referring Family Medicine 05/13/22 Team Status: Inactive Member Role Status Dates Thomas Calix MD Primary Care Provider Active Start: July 31, 2023 End: July 31, 2023 Jeramy Cunningham DO Emergency Provider Active Sta rt: July 31, 2023 End: July 31, 2023 3Rd Mate Relationship Specialty Start Date End Date Thomas Calix MD [address] [place] [address] PCP - General Family Medicine 07/30/23 Antelmo Davey MD [address] [place] [address] (Fax) 09/25/19 [place] [address] [place] [address] Consulting General Surgery 09/25/19 Shanna June, BETH [address] [place] [address] Referring Family Medicine 10/19/19 Agustin Valentino PA [address] [place] [address] Referring Family Medicine 05/13/22 3Rd Mate Relationship Specialty Start Date End Date Thomas Calix MD [address] [place] [address] PCP - General Family Medicine 07/30/23 Antelmo Davey MD [address] [place] [address] (Fax) 09/25/19 [place] [address] [place] [address] Consulting General Surgery 09/25/19 Shanna June, BETH [address] [place] [address] Referring Family Medicine 10/19/19 Agustin Valentino PA [address] [facility] [address] [place] [address] Referring Family Medicine 05/13/22 3Rd Mate Relationship Specialty Start Date End Date Thomas Calix MD [address] [place] [address] PCP - General Family Medicine 07/30/23 Antelmo Davey MD [address] [place] [address] (Fax) 09/25/19 [place] [address] [place] [address] Consulting General Surgery 09/25/19 Shanna June CNP [address] [place] [address] Referring Family Medicine 10/19/19 Agustin Valentino PA [address] [place] [address] Referring Family Medicine 05/13/22 3Rd Mate Relationship Specialty Start Date End Date Thomas Calix MD [address] [place] [address] PCP - General Family Medicine 07/30/23 Antelmo Davey MD [address] [place] [address] (Fax) 09/25/19 [place] [address] [place] [address] Consulting General Surgery 09/25/19 Shanna June CNP [address] [place] [address] Referring Family Medicine 10/19/19 Agustin Valentino PA [address] [facility] [address] [place] [address] Referring Family Medicine 05/13/22 3Rd Mate Relationship Specialty Start Date End Date Thomas Calix MD [address] [place] [address] PCP - General Family Medicine 07/30/23 Antelmo Davey MD [address] [place] [address] 09/25/19 [place] [address] [place] [address] Consulting General Surgery 09/25/19 Shanna June CNP [address] [place] [address] Referring Family Medicine 10/19/19 Agustin Valentino PA [address] [place] [address] [place] [address] Referring Family Medicine 05/13/22 3Rd Mate Relationship Specialty Start Date End Date Thomas Calix MD [address] [facility] [address] PCP - General Family Medicine 07/30/23 Antelmo Davey MD [address] [place] [address] 09/25/19 [place] [address] [place] [address] Consulting General Surgery 09/25/19 Shanan June CNP [address] [place] [address] Referring Family Medicine 10/19/19 Agustin Valentino PA [address] [address] Referring Family Medicine 05/13/22 Team Status: Inactive [...] August 21, 2023 End: August 21, 2023 3Rd Mate Relationship Specialty Start Date End Date Thomas Calix MD [address] [place] [address] PCP - General Family Medicine 07/30/23 Antelmo Davey MD [address] [place] [address] 09/25/19 [place] [address] [place] [address] Consulting General Surgery 09/25/19 Shanna June, BETH [address] [place] [address] Referring Family Medicine 10/19/19 Agustin Valentino PA [address] [address] [place] [address] Referring Family Medicine 05/13/22 3Rd Mate Relationship Specialty Start Date End Date Thomas Calix MD [address] [place] [address] PCP - General Family Medicine 07/30/23 Antelmo Davey MD [address] [place] [address] 09/25/19 [place] [address] [place] [address] Consulting General Surgery 09/25/19 Shanna June, BETH [address] [place] [address] Referring Family Medicine 10/19/19 Agustin Valentino PA [address] [address] [place] [address] Referring Family Medicine 05/13/22 3Rd Mate Relationship Specialty Start Date End Date Thomas Calix MD [address] [facility] [address] PCP - General Family Medicine 07/30/23 Antelmo Davey MD [address] [place] [address] (Fax) 09/25/19 [place] [address] [place] [address] Consulting General Surgery 09/25/19 Shanna June, REAL ESTATE AGENT [address] [place] [address] Referring Family Medicine 10/19/19 Agustin Valentino PA [address] [place] [address] [address] Referring Family Medicine 05/13/22 3Rd Mate Relationship Specialty Start Date End Date Thomas Calix MD [address] [facility] [address] PCP - General Family Medicine 07/30/23 Antelmo Davey MD [address] [place] [address] (Fax) 09/25/19 [place] [address] [place] [address] Consulting General Surgery 09/25/19 Shanna June, BETH [address] [place] [address] Referring Family Medicine 10/19/19 Agustin Valentino PA [address] [facility] [address] [place] [address] Referring Family Medicine 05/13/22 3Rd Mate Relationship Specialty Start Date End Date Thomas Calix MD [address] [place] [address] PCP - General Family Medicine 07/30/23 Antelmo Davey MD [address] [place] [address] (Fax) 09/25/19 [place] [address] [place] [address] Consulting General Surgery 09/25/19 Shanna June CNP [address] [place] [address] Referring Family Medicine 10/19/19 Agustin Valentino PA [address] [address] Referring Family Medicine 05/13/22 3Rd Mate Relationship Specialty Start Date End Date Thomas Calix MD [address] [place] [address] PCP - General Family Medicine 07/30/23 Antelmo Davey MD [address] [place] [address] (Fax) 09/25/19 [place] [address] [place] [address] Consulting General Surgery 09/25/19 Shanna Juen CNP [address] [place] [address] Referring Family Medicine 10/19/19 Agustin Valentino PA [address] [facility] [address] [place] [address] Referring Family Medicine 05/13/22 3Rd Mate Relationship Specialty Start Date End Date Thomas Calix MD [address] [place] [address] PCP - General Family Medicine 07/30/23 Antelmo Davey MD [address] [place] [address] 09/25/19 [place] [address] [place] [address] Consulting General Surgery 09/25/19 Shanna June, BETH [address] [place] [address] Referring Family Medicine 10/19/19 Agustin Valentino PA [address] [address] [place] [address] Referring Family Medicine 05/13/22 3Rd Mate Relationship Specialty Start Date End Date Thomas Calix MD [address] [facility] [place] [address] PCP - General Family Medicine 07/30/23 Antelmo Davey MD [address] [facility] [place] [address] 09/25/19 [place] [address] [place] [address] Consulting General Surgery 09/25/19 Shanna June CNP [address] [place] [address] Referring Family Medicine 10/19/19 Agustin Valentino PA [address] [place] [address] Referring Family Medicine 05/13/22 Source Comments (unrecognize [...] or prosecute any alcohol or drug abuse patient.[facility] the event this information is protected by [...] or prosecute any alcohol or drug abuse patient.[facility] the event this information is protected by [...] or prosecute any alcohol or drug abuse patient.[facility] the event this information is protected by [...] BE BASED ON THE PRIMARY CLINICAL RECORDS. [employer] [facility]. provides no warranty or guarantee of the accuracy or completeness of information in this document.
[2023-09-25 11:32] LABS: Alanine Aminotransferase 30 U/L (14-59); Albumin Globulin Ratio 1.3; Albumin Level 3.6 g/dL (3.4-5.0); Alkaline Phosphatase 59 U/L (46-116); Anion Gap 13.7; Aspartate Amino Transferase 26 U/L (15-37); BUN Creatinine Ratio 7.3; Bilirubin Total 0.3 mg/dL (0.2-1.0); Calcium 8.6 mg/dL (8.5-10.1); Carbon Dioxide 25.3 mmol/L (21.0-32.0); Chloride 104 mmol/L (98-107); Estimated GFR (African America >60 (>=60); Estimated GFR (Non-African Ame >60 (>=60); Globulin 2.8 g/dL; Glucose 93 mg/dL (74-106); Magnesium 1.8 mg/dL (1.8-2.4); Phosphorus 2.4 mg/dL (2.6-4.7); Sodium 139 mmol/L (136-145); Total Protein 6.4 g/dL (6.4-8.2); Triglycerides 47 mg/dL (<=150)
== END 2023-09-25 11:05 | disposition home or self-care (01) ==
LOC: LAB 11:04
PROVIDERS: PCP Family Medicine; Visit Provider Family Medicine
DX: E44.0 Moderate protein-calorie malnutrition (principal); R11.2 Nausea with vomiting, unspecified
CPT/HCPCS: 36415; 80053; 83735; 84100; 84478; 85025

== ENCOUNTER 2023-10-09 10:17 | Outpatient (REF) | payer OTHER, SELFPAY ==
--- OUTSIDE RECORDS SUMMARY | 2023-10-09 10:35 | XMS_ITS | CCD ---
Author Organization [facility] ion Partnership [facility] Care Team Providers Care Field Support Engineer Name Role Phone PHYSICIAN, DEFAULT Unavailable Unavailable PHYSICIAN, DEFAULT Unavailable Unavailable Shanna June Primary Care Provider Unavail able Slade AGRICULTURE SALES ACCOUNT MANAGER, Shanna Primary Care Provider Mona vailable Slade PERIOPERATIVE ASSISTANT - BLEACH MACHINE OPERATOR, Shanna Primary Care Provid er LUCIE MORA Attending Unavailable SHANNA JUNE Primary Care Unavailable SHANNA JUNE Referring Unavailable LUCIE MORA Attending Unavailable SHANNA JUNE Primary Care Unavailable SELF, SELF Referring Unavailable Antelmo Davey Unavailable Deacon Kat MD Unavailable Shanna June CNP Unavailable Shanna June CNP Primary Care Provider Antelmo Daevy MD Unavailable Wally Foley Primary Care Provider [phone] Shanna June Unavailable Wally Foley Primary Care Provider Antelmo Davey MD Unavailable Deacon Kat MD Unavailable [phone] Shanna June CNP Unavailable Shanna June CNP Primary Care Provider Antelmo Davey MD Unavailable Deacon Kat MD Unavailable Shanna June CNP Unavailable Shanna June CNP Primary Care Provider Slade FIRE CONTROL ASSISTANT, Shanna Unavailable [phone] Slade FIRE CONTROL ASSISTANT, Shanna Primary Care Provider [phone] Tamica JOHNSON Edcharles Unger Unavailable Jacquelyn JOHNSON Deacon Gregory Unavailable Slade FIRE CONTROL ASSISTANT, Shanna Unavailable Slade FIRE CONTROL ASSISTANT, Shanna Primary Care Provider Wally Foley MD Primary Care Provider [phone] Jaquan Morrow Primary Care Physician [phone] Agustin Valentino Unavailable Jaquan Mororw Primary Care Provider FOLEY ., DR WALLY [...] Unavailable ZURDO ., DR BURCH Admitting Unavailable [place], DR BALDOMERO Campos Consulting Unavailable ZURDO ., [...] DAREK ., BRUNA Attending Unavailable DAREK ., RBUNA Admitting Unavailable ZIEBER, DR ALVERTO Ahumada Consulting Unavailable DAREK ., BRUNA Consulting Unavailable FOLEY ., DR WALLY Graf Primary Care Unavailable ZURDO ., DR BURCH Referring Unavailable GIEDRAITIS, ANDBRENDAUS Attending Unavailable GIEDRAITIS, ANDRIUS Admitting Unavailable Agustin Valentino Unavailable Agustin Bautista Unavailable [phone] Wally Foley Primary Care Provider [phone] WALLY FOLEY Primary Care Unavailable EMMY WATSON [id number] Attending Unavailable WALLY FOLEY Primary Care Unavailable [...] Consulting Unavailable CORIE HENDRICKSON Attending Unavailable Cristhian PERIOPERATIVE ASSISTANT.Jaquan CAMPOS Primary Care Provider JAQUAN MORROW L Primary Care Unavailable VIC RAMOS Attending Unavailable VIC RAMOS Admitting Unavailable ZEYAD Morrow-C Jaquan Ortega Primary Care Provider DO Claus Obrien Emergency Provider [phone] GENERIC PROVIDER, NO ASSIGNED PCP Primary Care Unavailable Generic Provider , No Assigned Pcp Primary Car e Provider Unavailable Generic Provider , No Assigned Pcp Primary Car e Provider Unavailable Jannyore, AGRICULTURE SALES ACCOUNT MANAGER-BC Trace E Emergency Provider [phone] Generic Provider , No Assigned Pcp Primary Car e Provider Unavailable Cristhian, BLEACH MACHINE OPERATOR-C Jaquan Ortega Primary Care Provider Beverley [facility] Trace E Emergency Provider SLIM Parker Emergency Provider Cristhian PERIOPERATIVE ASSISTANT.BETH, Jaquan Johnson Primary Care Provider Generic Provider , No Assigned Pcp Primary Car e Provider Unavailable GENERIC PROVIDER, NO ASSIGNED PCP Primary Care Unavailable Jacquelyn JOHNSON, Deacon Ahumada Unavailable [phone] Generic Provider , No Assigned Pcp Primary Car e Provider Unavailable Cristhian, BLEACH MACHINE OPERATOR-C Jaquan Ortega Primary Care Provider MD Thomas Calix Primary Care Provider [phone] GABRIELLA Sabillon Emergency Provider MD Tahir Whitt Admit Provider MD Tahir Whitt Attending Provider DO Camden Rodriguez Admit Provider DO Camden Rodriguez Attending Provider MD Silas Kimbrought Other Provider DO Jeramy Cunningham Emergency Provider [phone] Agustin Bautista Unavailable [phone] Thomas Calix MD Primary Care Provider [phone] NONE, XXXX Primary Care Physician Unavailab Mateusz [...] Unavailable Cristhian, Jaquan Johnson Attending Unavailable Johnie, Eanrest Attending Unavailable Hajdari, Astrjessenia H Attending Unavailable Johnie, Earnest Attending Unavailable Cristhian, Jaquan Johnson Admitting Unavailable Cristhian, Jaquan Johnson Admitting Unavailable Cristhian, Jaquan Johnson Attending Unavailable Rajni Rouse Attending Unavailable OLGA PRAKASH Attending Unavailable Johnie, Earnest Attending Unavailable Jose Ramon, Astrjessenia H Attending Unavailable Mateusz Garcia Attending Unavailable Mateusz Garcia Attending Unavailable Mateusz Garcia Attending Unavailable Cristhian, Jaquan Johnson Attending Unavailable Cristhian, Jaquan Johnson Admitting Unavailable Moncho Trejo Attending Unavailable Moncho Trejo Admitting Unavailable SarminChacho rodriguezWebb Talal Consulting Unavaila MD Jon Good Talal Consulting Unava ilable Sarmini, Webb Talal Consulting Unavaila ble Sarmini, Webb Talal Consulting Unavaila ble Adamowicz, Gabino Consulting Unavailable Adamowicz, DO Gabino Consulting Unavailabl e Adamowicz, Gabino Consulting Unavailable Adamowicz, Gabino Consulting Unavailable Adamowicz, Gabino Consulting Unavailable Adamowicz, Gabino Consulting Unavailable Adamowicz, Gabino Consulting Unavailable Adamowicz, Gabino Consulting Unavailable Adamowicz, Gabino Consulting Unavailable DO Claus Obrien Emergency Provider Thomas Calix Primary Care Unavailable Michael, Yazid Admitting Unavailable Michael, Yazid Attending Unavailable Keven Kimbrough Consulting Unavailable Thomas Calix Primary Care Unavailable Jeramy Cunningham Admitting Unavailable Jeramy Cunningham Attending Unavailable Elena, Gabino Admitting Unavailable Elena, Gabino Attending Unavailable CristhianJaquan Primary Care Unavailable Bullimore, Trace E Attending Unavailable CristhianJaquan Primary Care Unavailable Bullimore, Trace E Admitting Unavailable Keister, Claus A Admitting Unavailable Keernst Claus A Attending Unavailable Jaquan Morrow Primary Care Unavailable Thomas Calix Primary Care Unavailable Micah, Claus A Admitting Unavailable Keister Claus A Attending Unavailable Shaan Sabillon Admitting Unavailable Shaan Sabillon Attending Unavailable Thomas Calix Primary Care Unavailable YOGI THOMAS M Primary Care Unavailable LOKESH PRAKASH MD Attending Unavailable RAYNA BILLINGSLEY Attending Unavailable JACOBO LYNCH Admitting Unavailable CRISTHIAN, JAQUAN L Primary Care Unavailable CHEYENNE FARNSWORTH Consulting Unavailable CRISELDA NO Admitting Unavailable CHETNA NESS Consulting Unavailable IMELDA AYALA Attending Unavailable CRISTHIAN, JAQUAN L Primary Care Unavailable DEACON KAT Referring Unavailable CRISTHIAN, JAQUAN L Primary Care Unavailable JACKSON ANDERSON Referring Unavailab KEESHA Cook Attending Unavailable CRISTHIAN, JAQUAN L Primary Care Unavailable JACKI BARRONESH Admitting Unavailable ADIBI STEVE Attending Unavailable CRISTHIAN, JAQUAN L Primary Care Unavailable ELISA VIVEROS Consulting Unavailable HOKatarina, THOMAS M Primary Care Unavailable ANTONIETTA ÁLVAREZ Attending Unavailable MARIA TERESA MURILLO Attending Unavailable STEVE ESTRADA Admitting Unavailable ALBERT HUBBARD Consulting Unavailable CRISTHIAN, JAQUAN L Primary Care Unavailable MARIA TERESA MURILLO Attending Unavailable YOGI, THOMAS M Primary Care Unavailable LIBBY URBINA Admitting Unavailable MD STALEY CHRISTOPHER Attending THOMAS Latham Primary Care Unavailable CORIE CRAFT Attending Unavailable THOMAS CALIX M Primary Care Unavailable SHERRY MAGAÑA M Attending Unavailable GENERIC PROVIDER, NO ASSIGNED PCP Primary Care Unavailable XIOMARA PETTY Attending Unavailable GÓMEZ WOOSUP M Referring Unavailable GENERIC PROVIDER, NO ASSIGNED PCP Primary Care Unavailable SHERRY MAGAÑA M Attending Unavailable GENERIC PROVIDER, NO ASSIGNED PCP Primary Care Unavailable XIOMARA PETTY Referring Unavailable GENERIC PROVIDER, NO ASSIGNED PCP Primary Care Unavailable PARK, WOOSUP M Admitting Unavailable OGUNLESI, OLUDAMILOLA O Attending Unavaila JIN Holt Consulting Unavailable PALOMO, MIGUEL ANGEL Primary Care Unavailable GENERIC PROVIDER, NO ASSIGNED PCP Primary Care Unavailable PALOMO, MIGUEL ANGEL Primary Care Unavailable EVE AGOSTO Consulting Unavailable PARK, WOOSUP M Admitting Unavailable PARK WOOSBAHMAN M Attending Unavailable GÓMEZ, WOOSUP M Consulting Unavailable NICK BECKY Consulting Unavailable KURT MATOS Consulting Unavailable GÓMEZ, WOOSUP M Attending Unavailable GÓMEZ, WOOSUP M Attending Unavailable WINTER RICKETTS Primary Care Unavailable SHERRY MAGAÑA Attending Unavailable GENERIC PROVIDER, NO ASSIGNED PCP Primary Care Unavailable GENERIC PROVIDER, NO ASSIGNED PCP Primary Care Unavailable BALDOMERO WOODARD Admitting Unavailable DOLORES COX Attending Unavaila SHERRY Cevallos Consulting Unavailable DAVID VALADEZ Referring Unavailable GENERIC PROVIDER, NO ASSIGNED PCP Primary Care Unavailable PABLO LERBON Attending Unavailable APBLO LEBRON Referring Unavailable CRISTHIAN, JAQUAN Johnson Primary Care Unavailable PABLO LEBRON Attending Unavailable SELF Referring Unavailable THOMAS CALIX Primary Care Unavailable PABLO LEBRON Attending Unavailable PABLO LEBRON Referring Unavailable CRISTHIAN, JAQUAN Johnson Primary Care Unavailable PABLO LEBRON Attending Unavailable PABLO LEBRON Referring Unavailable CRISTHIAN, JAQUAN L Primary Care Unavailable PABLO LEBRON Attending Unavailable CRISTHIAN, JAQUAN L Primary Care Unavailable MARCOS MORENO Attending Unavailable JR. KELVIN, TINO Abbasi Attending Unavaila rogelio WARREN JR., TINO Abbasi Referring Unavaila rogelio WARRNE JR., TINO Abbasi Attending Unavaila ble STEPJR. RASHAD, TINO Abbasi Referring Unavaila ble STEPJR. RASHAD, TINO Abbasi Attending Unavaila VIC Ramirez Attending Unavailable CRISTHIANJAQUAN Primary Care Unavailable SELF Referring Unavailable DEACON KAT Attending Unavailable CRISTHIAN, JAQUAN ORTEGA Primary Care Unavailable KASIE AVALOS Attending Unavailable CRISTHIAN, JAQUAN ORTEGA Primary Care Unavailable CRISTHIAN, JAQUAN ORTEGA Primary Care Unavailable DEACON KAT Attending Unavailable THOMAS CALIX Primary Care Unavailable CRISTHIAN, JAQUAN ORTEGA Primary Care Unavailable MARCOS MORENO Referring Unavailable FRANCISCO J STEVE Attending Unavailable DEACON KAT Attending Unavailable CRISTHIANJAQUAN Primary Care Unavailable CRISTHIAN, JAQUAN ORTEGA Primary Care Unavailable BREANNA STERN Attending Unavailable DEACON KAT Referring Unavailable CRISTHIAN, JAQUAN ORTEGA Primary Care Unavailable DEACON KAT Referring Unavailable DEACON KAT Attending Unavailable CRISTHIAN, JAQUAN ORTEGA Primary Care Unavailable VIC RAMOS Attending Unavailable CRISTHIAN, JAQUAN ORTEGA Primary Care Unavailable RYLEE THACKER Attending Unavailable RYLEE THACKER Referring Unavailable CRISTHIAN, JAQUAN ORTEGA Primary Care Unavailable KARINA العلي Attending Unavailable SEN MARCUS Admitting Unavaila ble SHANNA WOODS Attending Unavailable THOMAS CALIX Primary Care Unavailable THOMAS CALIX Primary Care Un[facility] Unavailable RYLEE THACKER Attending Unavailable THACKERRYLEE Referring Unavailable CRISTHIAN, JAQUAN SHANNON Primary Care Unavailable BREANNA STERN Referring Unavailable [facility], [facility] Primary [facility] Unavailable THACKERRYLEE Attending Unavailable THACKER, RYLEE Referring Unavailable THOMAS CALIX M Primary Care Unavailable DEACON KAT Referring Unavailable THOMAS CALIX M Primary Care Unavailable AGUSTIN ZAMORANO Attending Unavailable CRISTHIAN, [facility] Primary Care Unavailable KASIE AVALOS Attending Unavailable THOMAS CALIX M Primary Care Unavailable WOODSSHANNA Attending Unavailable CRISTHIAN, [facility] Primary Care Unavailable ROMIE HAIRSTON Admitting Unavailable BOOGIE MURGUIA Attending Unavailable THOMAS CALIX M Primary Care Unavailable VIC RAMOS Referring Unavailable VIC RAMOS Attending Unavailable THOMAS CALIX M Primary Care Unavailable JOLEENPHAJAKE KASIE Referring Unavailable BRITT BRADSHAW Attending Unavailable THOMAS CALIX M Primary Care Unavailable THOMAS CALIX M Primary Care Unavailable KASIE AVALOS Referring Unavailable THOMAS CALIX M Primary Care Unavailable KASIE AVALOS Referring Unavailable DEACON KAT Attending Unavailable THOMAS CALIX M Primary Care Unavailable [facility]STHIAN, [facility] Primary Care Unavailable CRISTHIAN, [facility] Primary Care Unavailable DEACON KAT Admitting Unavailable THOMAS CALIX M Primary Care Unavailable DEACON KAT Attending Unavailable CRISTHIAN, [facility] Primary Care Unavailable DEACON KAT Admitting Unavailable DEACON KAT Attending Unavailable [facility]STHIAN, [facility] Primary Care Unavailable SERENA HAMM Attending Unavailelma e DEACON KAT Admitting Unavailable DEACON KAT Attending Unavailable DEACON KAT Referring Unavailable CRISTHIAN, [facility] Primary Care Unavailable DEACON KAT Admitting Unavailable NAFFOUAUGUSTA, ARCHIER Consulting Unavailable DEACON KAT Attending Unavailable CRISTHIAN, [facility] Primary Care Unavailable CRISTHIAN, [facility] Primary Care Unavailable NICKERSON, SYLVAIN K Referring Unavailable TIFFANIE CHIU Attending Unavailabl e JAQUAN MORROW Primary Care Unavailable DEACON KAT Referring Unavailable JAQUAN MORROW Primary Care Unavailable JAQUAN MORROW Primary Care Unavailable DEACON KAT Admitting Unavailable EARNEST [facility] Referring Unavailable DEACON KAT Attending Unavailable Allergies Allergy Classification Reported Allergen(s) Allergy Type Date of Onset Reaction(s) Facility Opioid Agonists (7 sources) Codeine; Translations: [codeine] Drug Allergy 10-04-19 20 GI Upset [facility] (5 sources) Codeine And Related Propensity to adverse reactions to drug 07-08-19 14 Other (See Comments), Nausea And Vomiting [facility] (20 sources) Codeine; Translations: [codeine] Drug Allergy 10-04-19 20 GI Upset, Nausea/vomitin g [facility] (3 sources) Propofol Drug Allergy 06-19-19 22 Other: See Comments [facility] (20 sources) Adhesive Tape-Silicones; Translations: [ADHESIVE TAPE-SILICONES] Drug Intolerance 02-07-20 20 Intolerance [facility] (2 sources) Morphine And Related Propensity to adverse reactions to drug 07-08-19 14 Other (See Comments), Nausea And Vomiting [facility] (7 sources) Codeine Drug Allergy vomiting [facility] [place] Other (4 sources) Acetaminophen / oxyCODONE Drug Allergy anaphylaxis [facility] [place] Other (20 sources) Non-steroidal anti-inflammator y agent; Translations: [NSAIDS (NON-STEROIDAL ANTI-INFLAMMATOR Y DRUG)] Propensity to adverse reactions to drug 01-30-20 22 Contraindicati on-Medical Surgical, Nausea/vomitin g [facility] Work Phone: (1 source) Codeine Drug Allergy 07-08-[address] [facility] (1 source) Anastia Drug allergy (disorder) [facility] (15 sources) Non-steroidal anti-inflammator y agent; Translations: [NSAIDs] Drug allergy Unknown (qualifier value) [facility] (2 sources) Acetaminophen; Translations: [acetaminophen] Drug Allergy 04-06-19 24 anaphylaxis [facility] (8 sources) oxyCODONE; Translations: [oxycodone] Drug Allergy 04-06-19 anaphylaxis [facility] (6 sources) NSAIDS (Non-Steroidal Anti-Inflamma; Translations: [NSAIDS (Non-Steroidal Anti-Inflamma] Propensity to adverse reactions 07-16-19 24 d/t surgery [facility] (1 source) Codeine Drug Allergy 08-21-19 [facility] Medications Current Medications Medication Drug Class(es) Dates Sig (Normalized) Sig (Original) minipill Birthcontrol (2 sources) Start: 03-07-2018 minipill Birthcontrol minipill Birthcontrol, Daily Start Date: 03/07/18 Status: Ordered acetaminophen 325 mg / butalbital 50 mg / caffeine 40 mg oral tablet (20 sources) Barbiturate, Central Nervous System Stimulant, Methylxanthine Start: 06-17-2023 take 1 tablet by mouth every four hours as needed acetaminophen 325 mg-caffeine 40 mg-butalbital 50 mg (FIORICET) per tablet Take 1 tablet by mouth every 4 hours as needed for headache. 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 1 Each 08/08/2023 Active Start: 06-30-2023 take 3 mL [...] puff(s), Inhalation, q6hr, 18 gm, Refill(s) 3, [facility]/pharmacy #[id number], 167, cm, 05/17/23 14:25:00 EDT, Height/Length Dosing, 81, kg, 05/17/23 14:25:00 EDT, Weight Dosing Start Date: 05/31/23 Status: Ordered Start: 12-30-2022 take 2 puff(s) by in halation every six hours Albuterol (Eqv-Ventolin HFA) 90 mcg/inh inhalation aerosol 2 puff(s), Inhalation, q6hr, 18 gm, Refill(s) 0, [facility]/pharmacy #[id number], 168, cm, 12/29/22 15:01:00 EST, [...] day(s), # 6 tab(s), Refills(s) 0, Pharmacy: [facility]/pharmacy #[id number], 168, cm, 12/29/22 15:01:00 EST, [...] on above: Take 2 tablets by mo hih three times a day as needed for [...] day(s), # 21 cap(s), Refills(s) 0, Pharmacy: [facility]/pharmacy #[id number], 168, cm, 12/29/22 15:01:00 EST, [...] day(s), # 20 tab(s), Refills(s) 0, Pharmacy: [facility]/pharmacy #[id number], 168, cm, 06/17/22 10:54:00 EDT, [...] day(s), # 28 tab(s), Refills(s) 0, Pharmacy: [facility]/pharmacy #[id number], 167, cm, 05/06/23 15:49:00 EDT, Height/Length Dosing, 82.7, kg, 05/06/23 15:49:00 EDT, Weight Dosing Start Date: 05/06/23 Stop Date: 05/13/23 Status: Ordered Start: 04-02-2023 take 2 capsules by m outh four times daily Bentyl 10 mg Cap 20 mg = 2 cap(s), Oral, QID, # 20 cap(s), Refills(s) 0, Pharmacy: [facility]/pharmacy #[id number], 167, cm, 04/02/23 11:01:00 EST, Height/Length Dosing, 82.7, kg, 04/02/23 11:01:00 EST, Weight Dosing Start Date: 04/02/23 Status: Ordered Start: 06-05-2022 End: 06-15-2022 take 1 capsule by mouth four times daily Bentyl 10 mg Cap 10 mg = 1 cap(s), Oral, QID, X 10 day(s), # 40 cap(s), Refills(s) 0, Pharmacy: [facility]/pharmacy #[id number], 167.2, cm, 05/05/22 13:30:00 EDT, Height/Length Dosing, 84.5, kg, 05/05/22 13:30:00 EDT, Weight Dosing Start Date: 06/05/22 Stop Date: 06/15/22 Status: Ordered Start: 12-20-2020 take 2 capsules by m outh four times daily Bentyl 10 mg Cap 20 mg = 2 cap(s), Oral, QID, # 20 cap(s), Refills(s) 0, Pharmacy: [facility]/pharmacy #[id number], 167, cm, 12/20/20 9:30:00 EDT, [...] times a day as needed for constipation. 06/09/2023 Active Start: 06-23-2022 End: 06-09-2023 take 1 capsule by mouth three times daily for diarrhea docusate sodium (COLACE) 100 mg capsule Take 1 capsule by mouth three times daily. decrease the dose or stop for diarrhea 90 capsule 0 06/23/2022 06/09/2023 Discontinued Comment on above: Take 1 capsule by [facility] three times daily. decrease the [...] BID, # 20 cap(s), Refills(s) 0, Pharmacy: [facility]/pharmacy #[id number], 167.2, cm, 05/05/22 13:30:00 EDT, Height/Length Dosing, 84.5, kg, 05/05/22 13:30:00 EDT, Weight Dosing Start Date: 05/29/22 Status: Ordered Start: 03-31-2021 take 1 capsule by mo [facility] every twelve hours Doxycycline Monohydrate 100 MG 1 capsule Orally every 12 hrs for 7 days Mar, Active DULoxetine 60 mg oral capsule (15 sources) Serotonin and Norepinephrine Reuptake Inhibitor Start: 01-16-2021 take 60 mg by mouth twice daily Cymbalta 60 mg, Oral, BID, Refills(s) 0 Start Date: 01/16/21 Status: Ordered Start: 10-14-2019 take 1 capsule by [facility] every twelve hours DULoxetine HCl 60 MG 1 capsule Orally Twice a day for 90 days Sep, Active take 1 capsule by [facility] twice daily DULoxetine (CYMBALTA) 30 [...] tablet by mouth two times a day. Active Fluticasone-Salmeterol 100-50 MCG/DOSE (2 sources) Start: [...] Start: 01-20-2021 take 1 capsule by mo [facility] once daily, then take 1 capsule by mouth twice daily, then take 1 capsule by mouth three times daily gabapentin 300 mg Cap See Instructions, 1 cap(s) Oral daily x 1 day, 1 tab BID x 1 day, then 1 tab TID thereafter., # 90 cap(s), Refills(s) 0, Pharmacy: [facility]/pharmacy #[id number], 167, cm, 01/16/21 13:32:00 EST, [...] tablet by mouth once daily. 90 tablet 06/09/2023 Active Start: 05-03-2023 take 1 tablet by [facility] once daily levothyroxine 75 mcg (0.075 mg) Tab 75 mcg = 1 tab(s), Oral, Daily, # 60 tab(s), Refills(s) 1, Pharmacy: [facility]/pharmacy #[id number], 167, cm, 04/02/23 11:01:00 EST, Height/Length Dosing, 82.7, kg, 04/02/23 11:01:00 EST, Weight Dosing Start Date: 05/03/23 Status: Ordered Start: 03-03-2023 take 1 tablet by [facility] once daily levothyroxine 100 mcg (0.1 mg) Tab 100 mcg = 1 tab(s), Oral, Daily, # 90 tab(s), Refills(s) 0, Pharmacy: [facility], 168, cm, 02/03/23 14:52:00 EST, Height/Length Dosing, 85.5, kg, 02/03/23 14:52:00 EST, Weight Dosing Start Date: 03/03/23 Status: Ordered Start: 10-05-2022 take 1 tablet by [facility] once daily levothyroxine 100 mcg (0.1 mg) Tab 100 mcg = 1 tab(s), Oral, Daily, # 30 tab(s), Refills(s) 1, [id number] 168, cm, 07/29/22 8:44:00 EDT, Height/Length Dosing, 81, kg, 07/29/22 8:44:00 EDT, Weight Dosing Start Date: 10/05/22 Status: Ordered Start: 07-22-2022 take 1 tablet by [facility] once daily levothyroxine 125 mcg (0.125 mg) Tab See Instructions, TAKE 1 TABLET BY MOUTH EVERY DAY, # 30 tab(s), Refills(s) 2, Pharmacy: [facility] [id number], 168, cm, 07/20/22 10:48:00 EDT, Height/Length Dosing, 81.1, kg, 07/20/22 10:48:00 EDT, Weight Dosing Start Date: 07/22/22 Status: Ordered Start: 04-23-2022 take 1 tablet by [facility] once daily levothyroxine 125 mcg (0.125 mg) Tab 125 mcg = 1 tab(s), Oral, Daily, # 90 tab(s), Refills(s) 0, [id number] 167.6, cm, 04/15/21 22:31:00 EST, [...] capsule (20 sources) Guanylate Cyclase-C Agonist Start: 4 End: take 1 capsule by mouth once daily in the morning linaCLOtide (LINZESS) 290 mcg capsule Take 1 capsule by mouth daily at 6 am. 30 capsule 2 10/08/2023 01/06/2024 Active Start: 05-12-2023 take 1 capsule by mo uth once daily Linzess 290 mcg oral capsule [...] above: Take 1 capsule by mo ut DAILY (6 AM). Take 1 capsule by mo [facility] daily at 6 am. liothyronine [...] Ordered Start: 11-25-2022 take 1 tablet by [facility] once daily liothyronine 5 mcg Tab 5 mcg, Oral, Daily, # 90 tab(s), Refills(s) 3, Pharmacy: [facility]/pharmacy #[id number], 168, cm, 11/25/22 11:03:00 EDT, Height/Length Dosing, 82.5, kg, 11/25/22 11:03:00 EDT, Weight Dosing Start Date: 11/25/22 Status: Ordered Start: 05-21-2022 take 1 tablet by [facility] once daily liothyronine 5 mcg Tab 5 mcg, Oral, Daily, # 90 tab(s), Refills(s) 1, Pharmacy: [facility]/pharmacy #[id number], 167.2, cm, 05/05/22 13:30:00 EDT, Height/Length Dosing, 84.5, kg, 05/05/22 13:30:00 EDT, Weight Dosing Start Date: 05/21/22 Status: Ordered Start: 09-11-2019 take 1 tablet by robinson th once daily liothyronine (CYTOMEL) 5 mcg tablet Take 5 mcg by mouth once daily. 09/11/2019 Active take 1 tablet by robinson [...] dizziness, # 30 tab(s), Refills(s) 0, Pharmacy: [facility]/pharmacy #[id number], 168, cm, 06/10/22 10:57:00 EDT, Height/Length Dosing, 83.7, kg, 06/10/22 10:57:00 EDT, Weight Dosing Start Date: 06/10/22 Status: Ordered metFORMIN hydrochloride 1000 mg oral tablet (6 sources) Biguanide Start: 03-04-2018 take 1000 mg by mouth twice daily metformin 1,000 mg, Oral, BID, Refills(s) 0, Blood glucose Start Date: 03/04/18 Status: Ordered take 2 tablets by mo [facility] twice daily at mealtime metformin [...] tab(s), Refills(s) 0, Pharmacy: [facility]/pharmacy #[id number], 168, cm, 12/29/22 15:01:00 EST, Height/Length Dosing, 83.8, kg, 12/29/22 15:01:00 EST, Weight Dosing Start Date: 12/29/22 Stop Date: 01/04/23 Status: Ordered Start: 07-20-2022 End: 07-26-2022 Medrol 4 mg Tab = 1 packet(s ), Oral, As Directed, as directed on package labeling, X 6 day(s), # 21 tab(s), Refills(s) 0, Pharmacy: [facility]/pharmacy #[id number], 168, cm, 07/20/22 10:48:00 EDT, [...] labeling, # 21 tab(s), Refills(s) 0, Pharmacy: [facility]/pharmacy #[id number], 167, cm, 04/02/23 11:01:00 EST, [...] day(s), # 30 tab(s), Refills(s) 0, Pharmacy: [facility]/pharmacy #[id number], 168, cm, 06/17/22 10:54:00 EDT, Height/Length Dosing, 83.1, kg, 06/17/22 10:54:00 EDT, Weight Dosing Start Date: 06/17/22 Stop Date: 06/27/22 Status: Ordered midodrine hydrochloride 5 mg oral tablet (20 sources) alpha-Adrenergic Agonist Start: 08-06-2023 take 1 tablet by mouth every eight hours midodrine (PROAMITINE) 5 mg tablet Take 1 tablet by mouth every 8 hours. Please do not take this if systolic blood pressure greater than 110. Please discuss with your primary doctor if this needs to be continued especially if low blood pressures persist 30 tablet 08/06/2023 Active 24 hr mirabegron 25 mg [...] TABLET BY ROBINSON TH DAILY AT BEDTIME [facility] Prescription (1 source) Start: 06-11-19 [facility] Prescription Start Date: 06/11/23 Status: Ordered 1 [...] weeks. Do not use calcium as a filler sifter machine preparation. If insomnia or vivid dreams [...] weeks. Do not use calcium as a filler sifter machine preparation. If insomnia or vivid dreams [...] weeks. Do not use calcium as a filler sifter machine preparation. If insomnia or vivid dreams [...] weeks. Do not use calcium as a filler sifter machine preparation. If insomnia or vivid dreams [...] Run for 18 hours, off 6 hours. 28288 mL 3 05/29/2023 06/09/2023 Discontinued Start: 05-29-2023 End: 08-27-2023 nutritional supplements (NUT PIPO 2.0) 0.08 gram-2 kcal/mL liqd 45 mL/hr by FEEDING TUBE route once daily. Run for 18 hours, off 6 hours. 81907 mL 3 05/29/2023 08/27/2023 Active Start: 05-28-2023 End: 08-26-2023 nutritional supplements (NUT PIPO 2.0) 0.08 gram-2 kcal/mL liqd 45 mL/hr by FEEDING TUBE route once daily. Run for 18 hours, off 6 hours. 09629 mL 3 05/28/2023 08/26/2023 Active Comment on above: 45 mL/hr by FEEDING TUBE route once daily. Run for 18 hours, off 6 hours. nystatin 265916 unt/ml oral suspension (1 source) Polyene Antifungal [...] twice daily omeprazole (PRILOSEC) 40 mg capsule TAKE 1 CAPSULE BY MOUTH TWICE A DAY 180 capsule 1 09/28/2023 Active Start: 11-02-2022 End: 12-08-2022 omeprazole (PRILOSEC) [...] once daily. Take 1 capsule by mo [facility] as needed. TAKE 1 CAPSULE BY MO UTH NEEDED ondansetron 4 mg disintegrating oral tablet (20 sources) Serotonin-3 Receptor Antagonist Start: 10-07-19 take 1 tablet by mouth every eight hours as needed ondansetron orally disintegrating (ZOFRAN ODT) 4 mg disintegrating tablet Dissolve 1 tablet on the tongue every 8 hours as needed for nausea or vomiting. 20 tablet 10/07/2023 Active Start: 09-12-2023 take 1 tablet by robinson th every eight hours as needed ondansetron orally disintegrating (ZOFRAN ODT) 8 mg disintegrating tablet Take 1 tablet by mouth every 8 hours as needed for nausea/vomiting. 20 tablet 09/12/2023 Active Start: 08-08-2023 take 1 tablet [...] q6hr, # 12 tab(s), Refills(s) 0, Pharmacy: [facility]/pharmacy #[id number], 168, cm, 06/07/22 10:23:00 EDT, Height/Length Dosing, 83, kg, 06/07/22 10:23:00 EDT, Weight Dosing Start Date: 06/07/22 Status: Ordered Start: 07-27-2021 End: 07-27-2021 ondansetron (ZOFRAN) injecti on 4 mg Start: 12-28-2020 take 1 tablet by robinson th three times daily Zofran ODT 4 mg Tab 4 mg = 1 tab(s), Oral, TID, # 10 tab(s), Refills(s) 0, Pharmacy: [facility]/pharmacy #[id number], 167, cm, 12/20/20 9:30:00 EDT, [...] for nausea/vomiting. oxyCODONE hydrochloride 5 mg oral tablet (18 sources) Opioid Agonist Start: 10-07-19 End: 10-12-19 take 1 tablet by mouth every six hours as needed for pain oxyCODONE IR (ROXICODONE) 5 mg immediate release tablet Indications: Post-op pain Take 1 tablet by mouth every 6 hours as needed for pain for up to 5 days. 5 tablet 10/07/2023 10/12/2023 Active Start: 05-14-2023 take 1 capsule by mo [facility] every six hours as needed for pain oxyCODONE 5 mg Cap 5 mg = 1 cap(s), Oral, q6hr, PRN for pain, # 12 cap(s), Refills(s) 0, [id number], cm, 05/12/23 9:37:00 EDT, Height/Length Dosing, 79.8, kg, 05/12/23 9:37:00 EDT, Weight Dosing Start Date: 05/14/23 Status: Ordered Start: 05-09-2023 End: 05-12-2023 take 1 tablet by mouth every six hours oxyCODONE 5 mg Tab 5 mg = 1 tab(s), Oral, q6hr, X 3 day(s), # 10 tab(s), Refills(s) 0, [id number] 167, cm, 05/09/23 11:51:00 EDT, [...] above: Take 1 tablet by [facility] every 6 hours as needed for pain for up to 5 doses. polyethylene glycol 3350 79835 mg powder for oral solution (20 sources) [...] Start: 06-23-2022 End: 06-09-2023 polyethylene glycol 3350 (WI RALAX) 17 gram/dose powder Take 17 g [...] chloride 4.5 mg/ml injection (1 source) Start: 4 sodium chloride 0.45 % with KCl 20 mEq/L infusion predniSONE 20 mg oral tablet (4 sources) Start: 3 End: 3 take 2 tablets by mouth once daily predniSONE (DELTASONE) 20 MG tablet Take 2 tablets by mouth daily for 5 days 10 tablet 0 10/31/2022 11/05/2022 Active predniSONE EC 5 mg Delayed Release Tab Take 15 mg by mouth once daily. Active ProFe (4 sources) Start: 03-04-2018 take 180 mg by mouth once daily ProFe 180 mg, Oral, Daily, Refills(s) 0, Prophylaxis Start Date: 03/04/18 Status: Ordered promethazine hydrochloride 25 mg rectal suppository (20 sources) Phenothiazine Start: 04-06-2023 take 25 mg rectal route every six hours as needed for nausea Phenergan 25 mg Supp 25 mg = 1 supp, Rectal, q6hr, PRN Nausea/Vomiting, # 6 EA, Refills(s) 0, Pharmacy: [facility]/pharmacy #[id number], 167, cm, 05/06/23 15:49:00 EDT, [...] tab(s), Refills(s) 0, Pharmacy: [facility]/pharmacy #[id number], 168, cm, 10/20/22 8:21:00 EDT, Height/Length Dosing, 85.6, kg, 10/20/22 8:21:00 EDT, Weight Dosing Start Date: 10/20/22 Status: Ordered Start: 06-10-2022 take 1 tablet by robinson th every four hours promethazine 12.5 mg oral tablet 12.5 mg = 1 tab(s), Oral, q4hr, # 60 tab(s), Refills(s) 0, Pharmacy: [facility]/pharmacy #[id number], 168, cm, 06/10/22 12:37:00 EDT, Height/Length Dosing, 83.7, kg, 06/10/22 12:37:00 EDT, Weight Dosing Start Date: 06/10/22 Status: Ordered Start: 12-20-2020 take 1 tablet by robinson th every six hours as needed for nausea promethazine 25 mg Tab 25 mg = 1 tab(s), Oral, q6hr, PRN as needed for nausea/vomiting, # 12 tab(s), Refills(s) 0, Pharmacy: [facility]/pharmacy #[id number], 167, cm, 12/20/20 9:30:00 EDT, [...] Nausea, # 20 tab(s), Refills(s) 0, Pharmacy: [facility]/pharmacy #[id number], 167, cm, 05/12/23 9:37:00 EDT, Height/Length Dosing, 79.8, kg, 05/12/23 9:37:00 EDT, Weight Dosing Start Date: 05/14/23 Status: Ordered Start: 04-02-2023 End: 04-16-2023 sucralfate 1 g/10 mL Oral Nance sp 10 mL 1 gm = 10 mL, Oral, QIDACHS, X 14 day(s), # 560 mL, Refills(s) 0, Pharmacy: [facility]/pharmacy #[id number], 167, cm, 04/02/23 11:01:00 EST, [...] QID, # 280 mL, Refills(s) 0, Pharmacy: [facility]/pharmacy #[id number], 168, cm, 10/19/22 8:44:00 EDT, [...] Daily, # 10 cap(s), Refills(s) 0, Pharmacy: [facility]/pharmacy #[id number], 168, cm, 06/17/22 10:54:00 EDT, [...] Nausea/Vomiting, # 12 tab(s), Refills(s) 0, Pharmacy: [facility]/pharmacy #[id number], 167, cm, 05/06/23 15:49:00 EDT, [...] 08-30-2021 bupivacaine-EPINEP Hrine PF (MARCAINE-w/EPINEP HRINE) 0.5% -1:[id number] injection 10 mL calcium chloride 0.001 meq/ml [...] Refill(s) 0, Take 1 puff 2x daily., [facility]/pharmacy #[id number], 168, cm, 12/29/22 15:01:00 EST, Height/Length Dosing, 83.8, kg, 12/29/22 15:01:00 EST, Weight Dosing Start Date: 12/30/22 Status: Ordered Start: 03-31-2021 take 1 puff(s) by in halation every twelve hours fluticasone-salmeterol (ADVAIR DISKUS) 100-50 mcg/dose inhaler Inhale 1 Puff as instructed every 12 hours. 03/31/2021 Active Start: 03-31-2021 take 1 puff(s) [...] kcal/mL liqd TF for PEG-J Rate: 45cc/hr 19552 mL 1 05/26/2023 06/09/2023 Discontinued Start: 05-26-2023 nutritional nance pplements (NUTREN 1.5) 0.07 gram-1.5 kcal/mL liqd TF for PEG-J Rate: 45cc/hr 24383 mL 1 05/26/2023 Active Start: 05-21-2023 End: [...] Daily, # 30 tab(s), Refills(s) 0, Pharmacy: [facility]/pharmacy #[id number], 167, cm, 05/12/23 9:37:00 EDT, [...] hours as needed for nausea/vomiting. 15 tablet 06/18/2023 Active Start: 05-21-2023 End: 06-05-2023 take [...] Start: 01-30-2022 take 2 tablets by mo [facility] every six hours as needed prochlorperazine [...] on above: Take 2 tablets by mo [facility] every 6 hours as needed. Take 1 tablet by robinson every 6 hours for 14 days. promethazine (Phenergan) 6.25 mg in sodium chloride 0.9% 50 mL IV (1 source) Start: 03-05-2023 End: 03-05-2023 promethazine (Phenergan) 6.25 mg in sodium chloride 0.9% 50 mL IV sennosides, fpc 8.6 mg oral tablet (10 sources) Start: [...] on above: Take 2 tablets by mo [facility] four times daily as needed. [...] Active Start: 11-16-2022 take 1 tablet by [facility] every eight hours as needed for [...] pain, # 30 tab(s), Refills(s) 0, Pharmacy: [facility]/pharmacy #[id number], 168, cm, 06/26/22 14:12:00 EDT, [...] Classification Problem Date Documented Da te Episodic/Chronic Acute and unspecified renal failure (3 sources) Gyjmj-je-jfgfzak renal failure; Translations: [Acute kidney failure, unspecified] Onset: 4 06-29-2023 Episodic Anxiety disorders (20 sources) Posttraumatic stress disorder; Translations: [Reaction to severe stress, unspecified] Onset: 0 11-21-2019 Chronic Anxiety disorders (20 sources) Panic disorder without agoraphobia; Translations: [Panic disorder [episodic paroxysmal anxiety]] Onset: 0 Resolved: 2 04-08-2020 Chronic Aspiration pneumonitis; food/vomitus (20 sources) Pneumonitis due to inhalation of vomitus; [...] [Incontinence] Onset: 3 Chronic Headache; including migraine (8 sources) Migraine with aura; Translations: [Migraine with aura, not intractable, without status migrainosus] Onset: 4 Chronic Headache; including migraine (8 sources) Headache; Translations: [Headache] 01-27-2023 Episodic Inflammation; infection of eye (except that caused by tuberculosis or sexually transmitteddisease) (1 source) Vernal conjunctivitis of bilateral eyes; Translations: [Vernal conjunctivitis] Chronic Intestinal obstruction without hernia (20 sources) Small [...] 4 Chronic Other aftercare (1 source) Other intermediate card tender (current) 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; Translations: [OTH SNF CURRENT DRUG THERAPY] Onset: 3 Episodic Other aftercare (1 source) Surgical follow-up; Translations: [Encounter for surgical aftercare following surgery on the digestive system] 09-18-2022 Episodic Other aftercare (4 sources) Drug therapy finding; Translations: [nursing home (current) use of systemic steroids] Onset: 4 10-06-2023 Episodic Other circulatory disease (20 sources) Celiac artery compression syndrome; 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] Onset: 3 11-25-2022 Chronic Other circulatory disease (7 sources) Celiac artery compression syndrome; 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)] Onset: 3 Chronic Other circulatory disease (20 sources) Idiopathic hypotension; Translations: [Idiopathic hypotension] Onset: [...] acute postprocedural pain] Onset: 4 Episodic Other nervous system disorders (1 source) Other acute postprocedural pain; Translations: [Post-op pain] Onset: 4 Episodic Other non-traumatic joint [...] caused by tuberculosis or sexually transmitted disease) (20 sources) Pneumonia, unspecified organism; Translations: [Community acquired [...] sources) refferal Onset: 3 Unclassified (1 source) Dry cough; Translations: [Dry cough] Onset: 4 Unclassified (1 source) Feeding difficulties; Translations: [Feeding difficulties] Onset: 3 Past or Other Problems Problem Classification Problem Date Documented Da te Episodic/Chronic Abdominal hernia (20 sources) Hernia of anterior abdominal wall; Translations: [Ventral hernia without obstruction or gangrene] Onset: 01-28-2021 Resolved: 01-28-2021 03-13-2021 Episodic Abdominal pain (20 sources) Lower abdominal pain; Translations: [Right upper quadrant pain] Onset: 01-31-2020 Resolved: 08-08-2023 01-31-2020 Episodic Administrative/social admission (20 sources) Patient encounter [...] Hypokalemia; Translations: [Dehydration] Onset: 10-23-2022 11-04-2022 Episodic Genitourinary symptoms and ill-defined conditions (5 sources) Increased frequency of urination; Translations: [Frequency of micturition] Onset: 06-18-2023 07-06-2023 Episodic Immunizations and screening for infectious disease (4 sources) Encounter for screening for infections with a predominantly sexual mode of transmission; Translations: [ENC SCREEN INFECTIONS SEXL TRANSMS] Onset: 07-30-2021 Episodic Malaise and fatigue (20 sources) Malaise and fatigue; Translations: [Other malaise] Onset: 10-06-2019 10-06-2019 Episodic Nausea and vomiting (20 sources) Nausea; Translations: [Nausea] Onset: 09-25-2019 Resolved: 08-08-2023 09-25-2019 Episodic Other aftercare (1 source) Encounter for follow-up examination after completed treatment for conditions other than malignant neoplasm; Translations: [S/P gastrostomy tube (G tube) placement, follow-up exam] Onset: 05-25-2023 Episodic Other connective tissue disease (1 source) [...] transit constipation; Translations: [Slow transit constipation] Onset: 05-07-2023 05-09-2023 Episodic Other gastrointestinal disorders (20 sources) History of bariatric surgical procedure; Translations: [Bariatric surgery status] Onset: 10-26-2022 Episodic Other gastrointestinal disorders (20 sources) History of bypass of stomach; Translations: [Bariatric surgery status] Onset: 10-26-2022 Resolved: 08-08-2023 Episodic Other gastrointestinal disorders (14 sources) Bariatric surgery status; Translations: [Bariatric surgery status] Onset: 06-11-2022 07-17-2023 Episodic Other gastrointestinal disorders (20 sources) Constipation; Translations: [Constipation, unspecified] Onset: 06-21-2022 Episodic Other gastrointestinal disorders (20 sources) H/O: GIT by-pass; Translations: [Bariatric surgery status] Onset: 06-24-2022 06-24-2022 Episodic Other lower respiratory disease (1 source) Shortness of breath Onset: 03-31-2021 Resolved: 03-31-2021 Episodic Other lower respiratory disease (1 source) Other nonspecific abnormal finding of lung field; Translations: [Ground glass opacity present on imaging of lung] Onset: 07-06-2023 Episodic Other nervous system disorders (1 source) Tremor, unspecified Onset: 08-17-2021 Resolved: 08-17-2021 Episodic Other nervous system disorders (20 sources) H/O: respiratory disease; Translations: [Personal history of other diseases of the nervous system and sense organs] Onset: 06-24-2022 Resolved: 08-04-2023 06-24-2022 Episodic Other nutritional; endocrine; and metabolic disorders [...] Name Value Interpretation Reference Range Facil ity [id number] 10-07-2023 [id number] HNO ID: [id number] Author: SERENA DE LA ROSA RN Service: ? Author Type: Registered Nurse Type: [id number] Filed: 10/07/2023 09:58 Note Text: Tylenol may be taken at home. Ibuprofen may be taken at home. [facility] ANES POSTPROC EVALon 024 ANES POSTPROC EVAL Normal [facility] ANES PRE-OPon 10-07-2023 ANES PRE-OP [facility] BRIEF OP NOTon 10-07-2023 BRIEF OP NOT [facility] HISTORY PHYSICALon HISTORY PHYSICAL Normal [facility] NURSING PROGon 10-07-2023 NURSING PROG [facility] NURSING PROG Normal [facility] OPERATIVE NOon 10-07-2023 OPERATIVE NO [facility] PT EDon 10-07-2023 PT ED Normal [facility] XR CHEST 1V FRONTAL PORTon 0 10-07-2023 XR CHEST 1V FRONTAL PORT Normal [facility] HISTORY PHYSICALon HISTORY PHYSICAL Normal [facility] MR KNEE RIGHT WO IV CONTRAST on 09-28-2023 MR KNEE RIGHT WO IV CONTRAST EXAMINATION: MR KNEE RIGHT WO IV CONTRAST HISTORY: Chronic knee pain. Remote injury. Diffuse pain. TECHNIQUE: Routine non-contrast MRI of the knee, right COMPARISON: Radiographs 07/28/2023. MRI 05/16/2020. RESULT: MENISCI: Medial Meniscus: Borderline discoid morphology. Some areas of increased signal, without distinct extension to the articular surface. Lateral Meniscus: Attenuated appearance of the posterior horn, similar to prior, and probably secondary to prior partial meniscectomy. No evidence for new tear. LIGAMENTS: ACL, PCL, MCL, and LCL complex intact. CARTILAGE: Moderate area of high-grade partial-thickness chondral loss within the lateral femoral condyle. Small to moderate areas of full-thickness chondral loss involving the patellofemoral compartment. TENDONS: Mild distal quadriceps and patellar tendinosis, without tear. Popliteus intact. BONES AND MARROW: No evidence for recent fracture. No pathologic marrow infiltration. MUSCLES: Muscle bulk and signal intensity are normal. JOINT FLUID AND SYNOVIUM: No joint effusion. No synovitis. No Walsh's cyst. Focal fluid versus small ganglion cyst near the proximal tibiofibular joint. OTHER: Patella brandon. Shallow trochlear morphology. 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 Differential includes degenerative signal versus subtle nondisplaced tear. Apparent changes from prior partial lateral meniscectomy, similar to prior, without evidence for new tear. Degenerative changes as discussed. ELECTRONICALLY SIGNED BY: Chetna Sims MD Normal Not Available ED Triage Noteon 09-22-2023 ED Triage Note Normal [facility] BETA HCG, QUANTITATIVE FOR E Don 09-18-2023 HCG.beta subunit Qn m[IU]/mL Normal <5.0 [facility] Comment on above: Order Comment: Speci men Type: BLOOD SPECIMENOrdering Facility: [facility] Address: [address] [place], [place] [address] [address] Result Comment: Nega tive Performed By: #### 2 0292-8, HCGED, 56230-1, 3040-3 ####[facility]ORYCLIA [id number] [place] [address] [place] CBC W Auto Differential pane l (Bld)on 09-18-2023 Basophils (Bld) [#/Vol] 0.03 10*3/uL Normal <0.11 [facility] Comment on above: Order Comment: Speci men Type: BLOOD SPECIMENOrdering Facility: [facility] Address: [address] [place] [address] Performed By: #### 5 7021-8 ####[facility]ORYCLIA [id number] [place] [id number] [place] Basophils/100 WBC (Bld) 0.6 % Normal [facility] Comment on above: Order Comment: Speci men Type: BLOOD SPECIMENOrdering Facility: [facility] Address: [address] [place] [address] Performed By: #### 5 7021-8 ####[facility]ITALIA [id number] [place] [address] [place] Differential cell count method Nom (Bld) Auto Normal [facility] Comment on above: Order Comment: Speci men Type: BLOOD SPECIMENOrdering Facility: [facility] Address: [address] [place] [address] Performed By: #### 5 7021-8 ####[facility]ATORYCLIA [id number] [place] [address] [place] Eosinophils (Bld) [#/Vol] 10*3/uL Normal <0.46 [facility] Comment on above: Order Comment: Speci men Type: BLOOD SPECIMENOrdering Facility: [facility] Address: [address] [place] [address] Performed By: #### 5 7021-8 ####[facility]ATORYCLIA [id number] [place] [address] [place] Eosinophils/100 WBC (Bld) 0.2 % Normal [facility] Comment on above: Order Comment: Speci men Type: BLOOD SPECIMENOrdering Facility: [facility] Address: [address] [place] [address] Performed By: #### 5 7021-8 ####[facility]IA [id number] [place] [address] [place] Erythrocyte distribution width (RBC) [Ratio] 13.5 % Normal 11.5-15.0 [facility] Comment on above: Order Comment: Speci men Type: BLOOD SPECIMENOrdering Facility: [facility] Address: [address] [place] [address] Performed By: #### 5 7021-8 ####[facility] [id number] [place] [address] [place] Hematocrit (Bld) [Volume fraction] 37.1 % Normal 36.0-46.0 [facility] Comment on above: Order Comment: Speci men Type: BLOOD SPECIMENOrdering Facility: [facility] Address: [address] [place] [address] Performed By: #### 5 7021-8 ####[facility]IA [id number] [place] [address] [place] Hemoglobin (Bld) [Mass/Vol] 11.9 g/dL Normal 11.5-15.5 [facility] Comment on above: Order Comment: Speci men Type: BLOOD SPECIMENOrdering Facility: [facility] Address: [address] [place] [address] Performed By: #### 5 7021-8 ####[facility]ATORYIA [id number] [place] [address] [place] Immature granulocytes (Bld) [#/Vol] 10*3/uL Normal <0.10 [facility] Comment on above: Order Comment: Speci men Type: BLOOD SPECIMENOrdering Facility: [facility] Address: [address] [place] [address] Performed By: #### 5 7021-8 ####[facility]ORATORYIA [id number] [place] [address] [place] Immature granulocytes/100 WBC (Bld) 0.2 % Normal [facility] Comment on above: Order Comment: Speci men Type: BLOOD SPECIMENOrdering Facility: [facility] Address: [address] [place] [address] Performed By: #### 5 7021-8 ####[facility]ATORYCLIA [id number] [place] [address] [place] Lymphocytes (Bld) [#/Vol] 0.61 10*3/uL Low 1.00-4.00 [facility] Comment on above: Order Comment: Speci men Type: BLOOD SPECIMENOrdering Facility: [facility] Address: [address] [place] [address] Performed By: #### 5 7021-8 ####[facility] LABORATORYIA [id number] [place] [address] [place] Lymphocytes/100 WBC (Bld) 11.5 % Normal [facility] Comment on above: Order Comment: Speci men Type: BLOOD SPECIMENOrdering Facility: [facility] Address: [address] [place] [address] Performed By: #### 5 7021-8 ####[facility] LABORATORYIA [id number] [place] [address] [place] MCH (RBC) [Entitic mass] 27.4 pg Normal 26.0-34.0 [facility] Comment on above: Order Comment: Speci men Type: BLOOD SPECIMENOrdering Facility: [facility] Address: [address] [place] [address] Performed By: #### 5 7021-8 ####[facility]ORATORYIA [id number] [place] [address] [place] MCHC (RBC) [Mass/Vol] 32.1 g/dL Normal 30.5-36.0 [facility] Comment on above: Order Comment: Speci men Type: BLOOD SPECIMENOrdering Facility: [facility] Address: [address] [place] [address] Performed By: #### 5 7021-8 ####[facility]ORATORYCLIA [id number] [place] [address] [place] MCV (RBC) [Entitic vol] 85.5 fL Normal 80.0-100.0 [facility] Comment on above: Order Comment: Speci men Type: BLOOD SPECIMENOrdering Facility: [facility] Address: [address] [place] [address] Performed By: #### 5 7021-8 ####[facility] LABORATORYCLIA [id number] [place] [address] [place] Monocytes (Bld) [#/Vol] 0.16 10*3/uL Normal <0.87 [facility] Comment on above: Order Comment: Speci men Type: BLOOD SPECIMENOrdering Facility: [facility] Address: [address] [place] [address] Performed By: #### 5 7021-8 ####[facility] [id number] [place] [address] [place] Monocytes/100 WBC (Bld) 3.0 % Normal [facility] Comment on above: Order Comment: Speci men Type: BLOOD SPECIMENOrdering Facility: [facility] Address: [address] [place] [address] Performed By: #### 5 7021-8 ####[facility]ATORYIA [id number] [place] [address] [place] Neutrophils (Bld) [#/Vol] 4.48 10*3/uL Normal 1.45-7.50 [facility] Comment on above: Order Comment: Speci men Type: BLOOD SPECIMENOrdering Facility: [facility] Address: [address] [place] [address] Performed By: #### 5 7021-8 ####[facility]ORYIA [id number] [place] [address] [place] Neutrophils/100 WBC (Bld) 84.5 % Normal [facility] Comment on above: Order Comment: Speci men Type: BLOOD SPECIMENOrdering Facility: [facility] Address: [address] [place] [address] Performed By: #### 5 7021-8 ####[facility]IA [id number] [place] [address] [place] Nucleated RBC (Bld) [#/Vol] 10*3/uL Normal <0.01 [facility] Comment on above: Order Comment: Speci men Type: BLOOD SPECIMENOrdering Facility: [facility] Address: [address] [place] [address] Performed By: #### 5 7021-8 ####[facility]ORYIA [id number] [place] [address] [place] Nucleated RBC/100 WBC (Bld) [Ratio] 0.0 /100 WBC Normal [facility] Comment on above: Order Comment: Speci men Type: BLOOD SPECIMENOrdering Facility: [facility] Address: [address] [place] [address] Performed By: #### 5 7021-8 ####[facility]IA [id number] [place] [address] [place] Platelet mean volume (Bld) [Entitic vol] 10.7 fL Normal 9.0-12.7 [facility] Comment on above: Order Comment: Speci men Type: BLOOD SPECIMENOrdering Facility: [facility] Address: [address] [place] [address] Performed By: #### 5 7021-8 ####[facility]ITALIA [id number] [place] [address] [place] Platelets (Bld) [#/Vol] 274 10*3/uL Normal 150-400 [facility] Comment on above: Order Comment: Speci men Type: BLOOD SPECIMENOrdering Facility: [facility] Address: [address] [place] [address] Performed By: #### 5 7021-8 ####[facility]ORYIA [id number] [place] [address] [place] RBC (Bld) [#/Vol] 4.34 10*6/uL Normal 3.90-5.20 [facility] Comment on above: Order Comment: Speci men Type: BLOOD SPECIMENOrdering Facility: [facility] Address: [address] [place] [address] Performed By: #### 5 7021-8 ####[facility]ORATORYCLIA [id number] [place] [address] [place] WBC (Bld) [#/Vol] 5.30 10*3/uL Normal 3.70-11.00 [facility] Comment on above: Order Comment: Speci men Type: BLOOD SPECIMENOrdering Facility: [facility] Address: [address] [place] [address] Performed By: #### 5 7021-8 ####[facility]ITALIA [id number] [place] [address] [place] CT ABD/PEL W IVCONon 024 CT ABD/PEL W IVCON Normal [facility] Comprehensive metabolic 2000 panelon 09-18-2023 Albumin [Mass/Vol] 4.4 g/dL Normal 3.9-4.9 [facility] Comment on above: Order Comment: Speci men Type: BLOOD SPECIMENOrdering Facility: [facility] Address: [address] [place] [address] Performed By: #### 2 4323-8, HCGED, , 0-3 ####[facility]ORATORYCLIA [id number] [place] [address] [place] ALP [Catalytic activity/Vol] 66 U/L Normal 34-123 [facility] Comment on above: Order Comment: Speci men Type: BLOOD SPECIMENOrdering Facility: [facility] Address: [address] [place] [address] Performed By: #### 2 4323-8, HCGED, 14064-7, 0-3 ####[facility]ORATORYCLIA [id number] [place] [address] [place] ALT [Catalytic activity/Vol] 38 U/L Normal 7-38 [facility] Comment on above: Order Comment: Speci men Type: BLOOD SPECIMENOrdering Facility: [facility] Address: [address] [place] [address] Performed By: #### 2 4323-8, HCGED, , 3039-3 ####[facility]ORATORYCLIA [id number] [place] [address] [place] Anion gap [Moles/Vol] 11 mmol/L Normal 8-15 [facility] Comment on above: Order Comment: Speci men Type: BLOOD SPECIMENOrdering Facility: [facility] Address: [address] [place] [address] Performed By: #### 2 4323-8, HCGED, , 3039-3 ####[facility]ORATORYCLIA [id number] [place] [address] [place] AST [Catalytic activity/Vol] 48 U/L High 13-35 [facility] Comment on above: Order Comment: Speci men Type: BLOOD SPECIMENOrdering Facility: [facility] Address: [address] [place] [address] Performed By: #### 2 4323-8, HCGED, , 3039-3 ####[facility]ITALIA [id number] [place] [address] [place] Bilirubin [Mass/Vol] 0.3 mg/dL Normal 0.2-1.3 [facility] Comment on above: Order Comment: Speci men Type: BLOOD SPECIMENOrdering Facility: [facility] Address: [address] [place] [address] Performed By: #### 2 4323-8, HCGED, , 0-3 ####[facility]ORATORYCLIA [id number] [place] [address] [place] Calcium [Mass/Vol] 8.8 mg/dL Normal 8.5-10.2 [facility] Comment on above: Order Comment: Speci men Type: BLOOD SPECIMENOrdering Facility: [facility] Address: [address] [place] [address] Performed By: #### 2 4323-8, HCGED, , 0-3 ####[facility]ITALIA [id number] [place] [address] [place] Chloride [Moles/Vol] 106 mmol/L Normal 98-107 [facility] Comment on above: Order Comment: Speci men Type: BLOOD SPECIMENOrdering Facility: [facility] Address: [address] [place] [address] Performed By: #### 2 4323-8, HCGED, , 0-3 ####[facility]IA [id number] [place] [address] [place] CO2 [Moles/Vol] 20 mmol/L Low 22-30 [facility] Comment on above: Order Comment: Speci men Type: BLOOD SPECIMENOrdering Facility: [facility] Address: [address] [place] [address] Performed By: #### 2 4323-8, HCGED, , 0-3 ####[facility]ITALIA [id number] [place] [id number] [place] Creatinine [Mass/Vol] 0.70 mg/dL Normal 0.58-0.96 [facility] Comment on above: Order Comment: Speci men Type: BLOOD SPECIMENOrdering Facility: [facility] Address: [address] [place] [address] Performed By: #### 2 4323-8, HCGED, , 0-3 ####[facility]ATORYIA [id number] [place] [address] [place] Creatinine and Glomerular filtration rate.predicted panel (S/P/Bld) 117 mL/min/1.73m??? Normal >=60 [facility] Comment on above: Order Comment: Speci men Type: BLOOD SPECIMENOrdering Facility: [facility] Address: [address] [place] [address] Result Comment: Jessica mated Glomerular Filtration Rate [...] By: #### 2 4323-8, HCGED, , 3 ####[facility]ORATORYCLIA [id number] [place] [address] [place] Glucose [Mass/Vol] 118 mg/dL High 74-99 [facility] Comment on above: Order Comment: Geraldo marrero Type: BLOOD SPECIMENOrdering Facility: [facility] Address: [address] [place] [address] Result Comment: The [place] [employer] (ADA) provides guidance for cutoff [...] Standards of Medical Care in Diabetes 2016, [place] [employer]. Diabetes Care. 2016.39(Suppl 1). Performed By: #### 2 4323-8, HCGED, , 3 ####[facility]ATORYCLIA [id number] [place] [address] [place] Potassium [Moles/Vol] 4.0 mmol/L Normal 3.7-5.1 [facility] Comment on above: Order Comment: Geraldo marrero Type: BLOOD SPECIMENOrdering Facility: [facility] Address: [address] [place], [place] [address] Performed By: #### 2 4323-8, HCGED, , 3040-3 ####[facility]IA [id number] [place] [address] [place] Protein [Mass/Vol] 7.1 g/dL Normal 6.3-8.0 [facility] Comment on above: Order Comment: Speci men Type: BLOOD SPECIMENOrdering Facility: [facility] Address: [address] [place] [address] Performed By: #### 2 4323-8, HCGED, , 3039-3 ####[facility]IA [id number] [place] [address] [place] Sodium [Moles/Vol] 137 mmol/L Normal 136-144 [facility] Comment on above: Order Comment: Speci men Type: BLOOD SPECIMENOrdering Facility: [facility] Address: [address] [place] [address] Performed By: #### 2 4323-8, HCGED, , 3039-3 ####[facility] [id number] [place] [address] [place] Urea nitrogen [Mass/Vol] 9 mg/dL Normal 7-21 [facility] Comment on above: Order Comment: Speci men Type: BLOOD SPECIMENOrdering Facility: [facility] Address: [address] [place] [address] Performed By: #### 2 4323-8, HCGED, , 3039-3 ####[facility] [id number] [place] [address] [place] ED NOTEon 09-18-2023 ED NOTE Normal [facility] ED PROV NOTEon 09-18-2023 ED PROV NOTE Normal [facility] l Lipase SerPl-cCncon 09-18-19 24 Lipase [Catalytic activity/Vol] 37 U/L Normal 16-61 [facility] Comment on above: Order Comment: Speci men Type: BLOOD SPECIMENOrdering Facility: [facility] Address: [address] [place] [address] Performed By: #### 2 4323-8, HCGED, 85098-8, 3040-3 ####[facility] [id number] [place] [address] [place] Magnesium SerPl-mCncon 09-17 Magnesium [Mass/Vol] 2.1 mg/dL Normal 1.7-2.3 [facility] Comment on above: Order Comment: Speci men Type: BLOOD SPECIMENOrdering Facility: [facility] Address: [address] [place] [address] Performed By: #### 2 4323-8, HCGED, 74399-1, 0-3 ####[facility]IA [id number] [place] [address] [place] Urinalysis complete panel (U )on 09-18-2023 Bilirubin Ql (U) Negative Normal Negative [facility] Comment [facility] above: Order Comment: Speci men Type: URINE SPECIMENOrdering Facility: [facility] Address: [address] [place] [address] Performed By: #### 2 4356-8 ####[facility] [id number] [place] [address] [place] Clarity (Unsp spec) Clear Normal Clear [facility] Comment on above: Order Comment: Speci men Type: URINE SPECIMENOrdering Facility: [facility] Address: [address] [place] [address] Performed By: #### 2 4356-8 ####[facility] [id number] [place] [address] [place] Color (U) Light Yellow Normal yellow [facility] Comment on above: Order Comment: Speci men Type: URINE SPECIMENOrdering Facility: [facility] Address: [address] [place] [address] Performed By: #### 2 4356-8 ####[facility] [id number] [place] [address] [place] Glucose Test strip (U) [Mass/Vol] Negative Normal Trace, Negative [facility] Comment on above: Order Comment: Speci men Type: URINE SPECIMENOrdering Facility: [facility] Address: [address] [place] [address] Performed By: #### 2 4356-8 ####[facility] [id number] [place] [address] [place] Hemoglobin Ql (U) Negative Normal Negative, Trace [facility] Comment on above: Order Comment: Speci men Type: URINE SPECIMENOrdering Facility: [facility] Address: [address] [place] [address] Performed By: #### 2 4356-8 ####[facility]ORYIA [id number] [place] [address] [place] Ketones Ql (U) Negative Normal Negative, Trace [facility] Comment on above: Order Comment: Speci men Type: URINE SPECIMENOrdering Facility: [facility] Address: [address] [place] [address] Performed By: #### 2 4356-8 ####[facility] [id number] [place] [address] [place] Leukocyte esterase Test strip Ql (U) Negative Normal Negative, 25 Patito/uL [facility] Comment on above: Order Comment: Speci men Type: URINE SPECIMENOrdering Facility: [facility] Address: [address] [place] [address] Performed By: #### 2 4356-8 ####[facility] [id number] [place] [address] [place] Nitrite Ql (U) Negative Normal Negative [facility] Comment on above: Order Comment: Speci men Type: URINE SPECIMENOrdering Facility: [facility] Address: [address] [place] [address] Performed By: #### 2 4356-8 ####[facility] [id number] [place] [address] [place] pH (U) 7.5 [pH] Normal 5.0-8.0 [facility] Comment on above: Order Comment: Speci men Type: URINE SPECIMENOrdering Facility: [facility] Address: [address] [place] [address] Performed By: #### 2 4356-8 ####[facility] [id number] [place] [address] [place] Protein (U) [Mass/Vol] Negative Normal Trace, Negative [facility] Comment on above: Order Comment: Speci men Type: URINE SPECIMENOrdering Facility: [facility] Address: [address] [place] [address] Performed By: #### 2 4356-8 ####[facility] [id number] [place] [id number] [place] RBC LM.HPF (Urine sed) [#/Area] 0-3 /HPF Normal 0-3 /HPF [facility] Comment on above: Order Comment: Speci men Type: URINE SPECIMENOrdering Facility: [facility] Address: [address] [place] [address] Performed By: #### 2 4356-8 ####[facility] [id number] [place] [address] [place] Specific gravity (U) [Rel density] 1.005 Normal 1.005-1.030 [facility] Comment on above: Order Comment: Speci men Type: URINE SPECIMENOrdering Facility: [facility] Address: [address] [place] [address] Performed By: #### 2 4356-8 ####[facility] [id number] [place] [address] [place] Urobilinogen Ql (U) Normal Normal Normal [facility] Comment on above: Order Comment: Speci men Type: URINE SPECIMENOrdering Facility: [facility] Address: [address] [place] [address] Performed By: #### 2 4356-8 ####[facility] [id number] [place] [address] [place] WBC LM.HPF (Urine sed) [#/Area] 0-5 /HPF Normal 0-5 /HPF [facility] Comment on above: Order Comment: Speci men Type: URINE SPECIMENOrdering Facility: [facility] Address: [address] [place] [address] Performed By: #### 2 4356-8 ####[facility]ATORYCLIA [id number] [place] [address] [place] CBC W Auto Differential pane l (Bld)on 09-17-2023 Basophils (Bld) [#/Vol] 0.03 10*3/uL Normal <0.11 [facility] Comment on above: Order Comment: Speci men Type: BLOOD SPECIMENOrdering Facility: [facility] Address: [address] [place] [address] Performed By: #### 5 7021-8 ####[facility] [id number] [place] [address] [place] Basophils/100 WBC (Bld) 0.5 % Normal [facility] Comment on above: Order Comment: Speci men Type: BLOOD SPECIMENOrdering Facility: [facility] Address: [address] [place] [address] Performed By: #### 5 7021-8 ####[facility] [id number] [place] [address] [place] Differential cell count method Nom (Bld) Auto Normal [facility] Comment on above: Order Comment: Speci men Type: BLOOD SPECIMENOrdering Facility: [facility] Address: [address] [place] [address] Performed By: #### 5 7021-8 ####[facility] [id number] [place] [address] [place] Eosinophils (Bld) [#/Vol] 10*3/uL Normal <0.46 [facility] Comment on above: Order Comment: Speci men Type: BLOOD SPECIMENOrdering Facility: [facility] Address: [address] [place] [address] Performed By: #### 5 7021-8 ####[facility] [id number] [place] [address] [place] Eosinophils/100 WBC (Bld) 0.2 % Normal [facility] Comment on above: Order Comment: Speci men Type: BLOOD SPECIMENOrdering Facility: [facility] Address: [address] [place] [address] Performed By: #### 5 7021-8 ####[facility]IA [id number] [place] [address] [place] Erythrocyte distribution width (RBC) [Ratio] 13.3 % Normal 11.5-15.0 [facility] Comment on above: Order Comment: Speci men Type: BLOOD SPECIMENOrdering Facility: [facility] Address: [address] [place] [address] Performed By: #### 5 7021-8 ####[facility] [id number] [place] [address] [place] Hematocrit (Bld) [Volume fraction] 34.2 % Low 36.0-46.0 [facility] Comment on above: Order Comment: Speci men Type: BLOOD SPECIMENOrdering Facility: [facility] Address: [address] [place] [address] Performed By: #### 5 7021-8 ####[facility] [id number] [place] [address] [place] Hemoglobin (Bld) [Mass/Vol] 11.2 g/dL Low 11.5-15.5 [facility] Comment on above: Order Comment: Speci men Type: BLOOD SPECIMENOrdering Facility: [facility] Address: [address] [place] [address] Performed By: #### 5 7021-8 ####[facility] [id number] [place] [address] [place] Immature granulocytes (Bld) [#/Vol] 10*3/uL Normal <0.10 [facility] Comment on above: Order Comment: Speci men Type: BLOOD SPECIMENOrdering Facility: [facility] Address: [address] [place] [address] Performed By: #### 5 7021-8 ####[facility]ORATORYCLIA [id number] [place] [address] [place] Immature granulocytes/100 WBC (Bld) 0.2 % Normal [facility] Comment on above: Order Comment: Speci men Type: BLOOD SPECIMENOrdering Facility: [facility] Address: [address] [place] [address] Performed By: #### 5 7021-8 ####[facility]ORATORYCLIA [id number] [place] [address] [place] Lymphocytes (Bld) [#/Vol] 1.50 10*3/uL Normal 1.00-4.00 [facility] Comment on above: Order Comment: Speci men Type: BLOOD SPECIMENOrdering Facility: [facility] Address: [address] [place] [address] Performed By: #### 5 7021-8 ####[facility] [id number] [place] [id number] [place] Lymphocytes/100 WBC (Bld) 25.5 % Normal [facility] Comment on above: Order Comment: Speci men Type: BLOOD SPECIMENOrdering Facility: [facility] Address: [address] [place] [address] Performed By: #### 5 7021-8 ####[facility] [id number] [place] [address] [place] MCH (RBC) [Entitic mass] 27.9 pg Normal 26.0-34.0 [facility] Comment on above: Order Comment: Speci men Type: BLOOD SPECIMENOrdering Facility: [facility] Address: [address] [place] [address] Performed By: #### 5 7021-8 ####[facility] [id number] [place] [address] [place] MCHC (RBC) [Mass/Vol] 32.7 g/dL Normal 30.5-36.0 [facility] Comment on above: Order Comment: Speci men Type: BLOOD SPECIMENOrdering Facility: [facility] Address: [address] [place] [address] Performed By: #### 5 7021-8 ####[facility] [id number] [place] [address] [place] MCV (RBC) [Entitic vol] 85.3 fL Normal 80.0-100.0 [facility] Comment on above: Order Comment: Speci men Type: BLOOD SPECIMENOrdering Facility: [facility] Address: [address] [place] [address] Performed By: #### 5 7021-8 ####[facility] [id number] [place] [address] [place] Monocytes (Bld) [#/Vol] 0.35 10*3/uL Normal <0.87 [facility] Comment on above: Order Comment: Speci men Type: BLOOD SPECIMENOrdering Facility: [facility] Address: [address] [place] [address] Performed By: #### 5 7021-8 ####[facility] [id number] [place] [address] [place] Monocytes/100 WBC (Bld) 5.9 % Normal [facility] Comment on above: Order Comment: Speci men Type: BLOOD SPECIMENOrdering Facility: [facility] Address: [address] [place] [address] Performed By: #### 5 7021-8 ####[facility] [id number] [place] [address] [place] Neutrophils (Bld) [#/Vol] 3.99 10*3/uL Normal 1.45-7.50 [facility] Comment on above: Order Comment: Speci men Type: BLOOD SPECIMENOrdering Facility: [facility] Address: [address] [place] [address] Performed By: #### 5 7021-8 ####[facility] [id number] [place] [address] [place] Neutrophils/100 WBC (Bld) 67.7 % Normal [facility] Comment on above: Order Comment: Speci men Type: BLOOD SPECIMENOrdering Facility: [facility] Address: [address] [place] [address] Performed By: #### 5 7021-8 ####[facility] LABORATORYCLIA [id number] [place] [address] [place] Nucleated RBC (Bld) [#/Vol] 10*3/uL Normal <0.01 [facility] Comment on above: Order Comment: Speci men Type: BLOOD SPECIMENOrdering Facility: [facility] Address: [address] [place] [address] Performed By: #### 5 7021-8 ####[facility]PITALIA [id number] [place] [address] [place] Nucleated RBC/100 WBC (Bld) [Ratio] 0.0 /100 WBC Normal [facility] Comment on above: Order Comment: Speci men Type: BLOOD SPECIMENOrdering Facility: [facility] Address: [address] [place] [address] Performed By: #### 5 7021-8 ####[facility] [id number] [place] [address] [place] Platelet mean volume (Bld) [Entitic vol] 10.7 fL Normal 9.0-12.7 [facility] Comment on above: Order Comment: Speci men Type: BLOOD SPECIMENOrdering Facility: [facility] Address: [address] [place] [address] Performed By: #### 5 7021-8 ####[facility]ORATORYIA [id number] [place] [address] [place] Platelets (Bld) [#/Vol] 267 10*3/uL Normal 150-400 [facility] Comment on above: Order Comment: Speci men Type: BLOOD SPECIMENOrdering Facility: [facility] Address: [address] [place] [address] Performed By: #### 5 7021-8 ####[facility]ORATORYCLIA [id number] [place] [address] [place] RBC (Bld) [#/Vol] 4.01 10*6/uL Normal 3.90-5.20 [facility] Comment on above: Order Comment: Speci men Type: BLOOD SPECIMENOrdering Facility: [facility] Address: [address] [place] [address] Performed By: #### 5 7021-8 ####[facility]ORYIA [id number] [place] [address] [place] WBC (Bld) [#/Vol] 5.89 10*3/uL Normal 3.70-11.00 [facility] Comment on above: Order Comment: Speci men Type: BLOOD SPECIMENOrdering Facility: [facility] Address: [address] [place] [address] Performed By: #### 5 7021-8 ####[facility] [id number] [place] [address] [place] CT ABD/PEL W IVCONon 024 CT ABD/PEL W IVCON Normal [facility]spital Comprehensive metabolic 2000 panelon 09-17-2023 Albumin [Mass/Vol] 4.1 g/dL Normal 3.9-4.9 [facility] Comment on above: Order Comment: Speci men Type: BLOOD SPECIMENOrdering Facility: [facility] Address: [address] [place], [place] [address] Performed By: #### 2 4323-8, ####[facility]IA [id number] [place] [address] [place] ALP [Catalytic activity/Vol] 58 U/L Normal 34-123 [facility] Comment on above: Order Comment: Speci men Type: BLOOD SPECIMENOrdering Facility: [facility] Address: [address] [place] [address] Performed By: #### 2 4323-8, ####[facility] [id number] [place] [address] [place] ALT [Catalytic activity/Vol] 36 U/L Normal 7-38 [facility] Comment on above: Order Comment: Speci men Type: BLOOD SPECIMENOrdering Facility: [facility] Address: [address] [place] [address] Performed By: #### 2 4323-8, ####[facility]ORATORYCLIA [id number] [place] [address] [place] Anion gap [Moles/Vol] 12 mmol/L Normal 8-15 [facility] Comment on above: Order Comment: Speci men Type: BLOOD SPECIMENOrdering Facility: [facility] Address: [address] [place] [address] Performed By: #### 2 4323-8, ####[facility]IA [id number] [place] [address] [place] AST [Catalytic activity/Vol] 51 U/L High 13-35 [facility] Comment on above: Order Comment: Speci men Type: BLOOD SPECIMENOrdering Facility: [facility] Address: [address] [place] [address] Performed By: #### 2 4323-8, ####[facility]ORYIA [id number] [place] [address] [place] Bilirubin [Mass/Vol] 0.3 mg/dL Normal 0.2-1.3 [facility] Comment on above: Order Comment: Speci men Type: BLOOD SPECIMENOrdering Facility: [facility] Address: [address] [place] [address] Performed By: #### 2 4323-8, ####[facility] [id number] [place] [address] [place] Calcium [Mass/Vol] 8.7 mg/dL Normal 8.5-10.2 [facility]ital Comment on above: Order Comment: Speci men Type: BLOOD SPECIMENOrdering Facility: [facility] Address: [address] [place] [address] Performed By: #### 2 4323-8, ####[facility] LABORATORYCLIA [id number] [place] [address] [place] Chloride [Moles/Vol] 105 mmol/L Normal 98-107 [facility] Comment on above: Order Comment: Speci men Type: BLOOD SPECIMENOrdering Facility: [facility] Address: [address] [place] [address] Performed By: #### 2 4323-8, ####[facility]ORATORYCLIA [id number] [place] [address] [place] CO2 [Moles/Vol] 22 mmol/L Normal 22-30 [facility] Comment on above: Order Comment: Speci men Type: BLOOD SPECIMENOrdering Facility: [facility] Address: [address] [place] [address] Performed By: #### 2 4323-8, ####[facility]ORATORYCLIA [id number] [place] [address] [place] Creatinine [Mass/Vol] 0.65 mg/dL Normal 0.58-0.96 [facility] Comment on above: Order Comment: Speci men Type: BLOOD SPECIMENOrdering Facility: [facility] Address: [address] [place] [address] Performed By: #### 2 4323-8, ####[facility]ORATORYCLIA [id number] [place] [address] [place] Creatinine and Glomerular filtration rate.predicted panel (S/P/Bld) 119 mL/min/1.73m??? Normal >=60 [facility] Comment on above: Order Comment: Speci men Type: BLOOD SPECIMENOrdering Facility: [facility] Address: [address] [place] [address] Result Comment: Jessica mated Glomerular Filtration Rate [...] actual GFR. Performed By: #### 2 4323-8, ####[facility]ORATORYCLIA [id number] [place] [address] [place] Glucose [Mass/Vol] 92 mg/dL Normal 74-99 [facility] Comment on above: Order Comment: Geraldo marrero Type: BLOOD SPECIMENOrdering Facility: [facility] Address: [address] [place] [address] Result Comment: The [place] [employer] (ADA) provides guidance for cutoff [...] Standards of Medical Care in Diabetes 2016, [place] [employer]. Diabetes Care. 2016.39(Suppl 1). Performed By: #### 2 4323-8, ####[facility]ATORYCLIA [id number] [place] [address] [place] Potassium [Moles/Vol] 3.6 mmol/L Low 3.7-5.1 [facility] Comment on above: Order Comment: Geraldo marrero Type: BLOOD SPECIMENOrdering Facility: [facility] Address: [address] [place] [address] Performed By: #### 2 432-, ####[facility]ORATORYCLIA [id number] [place] [address] [place] Protein [Mass/Vol] 6.9 g/dL Normal 6.3-8.0 [facility] Comment on above: Order Comment: Speci men Type: BLOOD SPECIMENOrdering Facility: [facility] Address: [address] [place] [address] Performed By: #### 2 4323-8, ####[facility]ORATORYCLIA [id number] [place] [address] [place] Sodium [Moles/Vol] 139 mmol/L Normal 136-144 [facility] Comment on above: Order Comment: Speci men Type: BLOOD SPECIMENOrdering Facility: [facility] Address: [address] [place] [address] Performed By: #### 2 4323-8, ####[facility]ORATORYCLIA [id number] [place] [address] [place] Urea nitrogen [Mass/Vol] 10 mg/dL Normal 7-21 [facility] Comment on above: Order Comment: Speci men Type: BLOOD SPECIMENOrdering Facility: [facility] Address: [address] [place] [address] Performed By: #### 2 4323-8, ####[facility]ATORYCLIA [id number] [place] [address] [facility] [place] ED NOTEon 09-17-2023 ED NOTE Normal [facility] ED NOTE Normal [facility] ED NOTE HNO ID: [id number] Author: MISHEL HERNANDEZ RN Service: ? Author Type: Registered Nurse Type: ED Notes Filed: 09/17/2023 15:23 Note Text: Report received from DEE Lopez and assumed care of pt [facility] ED NOTE HNO ID: [id number] Author: ANITA HECK RN Service: [facility]ospital Author Type: Registered Nurse Type: ED Notes Filed: 09/17/2023 15:18 Note Text: Report given to DEE Jean Baptiste. [facility] ED NOTE Normal [facility] ED PROV NOTEon 09-17-2023 ED PROV NOTE Normal [facility] ED PROV NOTE Normal [facility] ED Triage Noteon 09-17-2023 ED Triage Note Normal [facility] Magnesium SerPl-ncon 09-16 Magnesium [Mass/Vol] 1.9 mg/dL Normal 1.7-2.3 [facility] Comment on above: Order Comment: Speci men Type: BLOOD SPECIMENOrdering Facility: [facility] Address: [address] [place] [address] Performed By: #### 2 4323-8, 65099-1 ####[facility]IA [id number] [place] [address] [place] Urinalysis complete panel (U )on 09-17-2023 Bilirubin Ql (U) Negative Normal Negative [facility] Comment on above: Order Comment: Speci men Type: URINE SPECIMENOrdering Facility: [facility] Address: [address] [place] [address] Performed By: #### 2 4356-8 ####[facility] [id number] [place] [address] [place] Clarity (Unsp spec) Clear Normal Clear [facility] Comment on above: Order Comment: Speci men Type: URINE SPECIMENOrdering Facility: [facility] Address: [address] [place] [address] Performed By: #### 2 4356-8 ####[facility] [id number] [place] [address] [place] Color (U) Colorless Normal yellow [facility] Comment on above: Order Comment: Speci men Type: URINE SPECIMENOrdering Facility: [facility] Address: [address] [place] [address] Performed By: #### 2 4356-8 ####[facility]IA [id number] [place] [address] [place] Epithelial cells LM.HPF (Urine sed) [#/Area] Few Normal [facility] Comment on above: Order Comment: Speci men Type: URINE SPECIMENOrdering Facility: [facility] Address: [address] [place] [address] Performed By: #### 2 4356-8 ####[facility] [id number] [place] [address] [place] Glucose Test strip (U) [Mass/Vol] Negative Normal Trace, Negative [facility] Comment on above: Order Comment: Speci men Type: URINE SPECIMENOrdering Facility: [facility] Address: [address] [place] [address] Performed By: #### 2 4356-8 ####[facility] [id number] [place] [address] [place] Hemoglobin Ql (U) Negative Normal Negative, Trace [facility] Comment on above: Order Comment: Speci men Type: URINE SPECIMENOrdering Facility: [facility] Address: [address] [place] [address] Performed By: #### 2 4356-8 ####[facility] [id number] [place] [address] [place] Ketones Ql (U) Negative Normal Negative, Trace [facility] Comment on above: Order Comment: Speci men Type: URINE SPECIMENOrdering Facility: [facility] Address: [address] [place] [address] Performed By: #### 2 4356-8 ####[facility] [id number] [place], [place] [address] [place] [address] [place] Leukocyte esterase Test strip Ql (U) Negative Normal Negative, 25 Patito/uL [facility] Comment on above: Order Comment: Speci men Type: URINE SPECIMENOrdering Facility: [facility] Address: [address] [place] [address] Performed By: #### 2 4356-8 ####[facility] [id number] [place] [address] [place] Nitrite Ql (U) Negative Normal Negative [facility] Comment on above: Order Comment: Speci men Type: URINE SPECIMENOrdering Facility: [facility] Address: [address] [place] [address] Performed By: #### 2 4356-8 ####[facility] [id number] [place] [address] [place] pH (U) 7.5 [pH] Normal 5.0-8.0 [facility] Comment on above: Order Comment: Speci men Type: URINE SPECIMENOrdering Facility: [facility] Address: [address] [place] [address] Performed By: #### 2 4356-8 ####[facility] [id number] [place] [address] [place] Protein (U) [Mass/Vol] Negative Normal Trace, Negative [facility] Comment on above: Order Comment: Speci men Type: URINE SPECIMENOrdering Facility: [facility] Address: [address] [place] [address] Performed By: #### 2 4356-8 ####[facility] [id number] [place] [address] [place] RBC LM.HPF (Urine sed) [#/Area] 0-3 /HPF Normal 0-3 /HPF [facility] Comment on above: Order Comment: Speci men Type: URINE SPECIMENOrdering Facility: [facility] Address: [address] [place] [address] Performed By: #### 2 4356-8 ####[facility] [id number] [place] [address] [place] Specific gravity (U) [Rel density] 1.032 High 1.005-1.030 [facility] Comment on above: Order Comment: Speci men Type: URINE SPECIMENOrdering Facility: [facility] Address: [address] [place] [address] Performed By: #### 2 4356-8 ####[facility] [id number] [place] [address] [place] Urobilinogen Ql (U) Normal Normal Normal [facility] Comment on above: Order Comment: Speci men Type: URINE SPECIMENOrdering Facility: [facility] Address: [address] [place] [address] Performed By: #### 2 4356-8 ####[facility] [id number] [place] [address] [place] WBC LM.HPF (Urine sed) [#/Area] 0-5 /HPF Normal 0-5 /HPF [facility] Comment on above: Order Comment: Speci men Type: URINE SPECIMENOrdering Facility: [facility] Address: [address] [place] [address] Performed By: #### 2 4356-8 ####[facility]IA [id number] [place] [address] [place] BETA HCG, QUANTITATIVE FOR E Don 09-12-2023 HCG.beta subunit Qn m[IU]/mL Normal <5.0 [facility] Comment on above: Order Comment: Speci men Type: BLOOD SPECIMENOrdering Facility: [facility] Address: [address] [place] [address] Result Comment: Nega tive Performed By: #### 2 4323-8, 45202-2, HCGED, 3040-3 ####[facility] [id number] [place] [address] [place] CBC W Auto Differential pane l (Bld)on 09-12-2023 Basophils (Bld) [#/Vol] 0.04 10*3/uL Normal <0.11 [facility] Comment on above: Order Comment: Speci men Type: BLOOD SPECIMENOrdering Facility: [facility] Address: [address] [place] [address] Performed By: #### 5 7021-8 ####[facility] [id number] [place] [address] [place] Basophils/100 WBC (Bld) 0.8 % Normal [facility] Comment on above: Order Comment: Speci men Type: BLOOD SPECIMENOrdering Facility: [facility] Address: [address] [place] [address] Performed By: #### 5 7021-8 ####[facility] [id number] [place] [address] [place] Differential cell count method Nom (Bld) Auto Normal [facility] Comment on above: Order Comment: Speci men Type: BLOOD SPECIMENOrdering Facility: [facility] Address: [address] [place] [address] Performed By: #### 5 7021-8 ####[facility]ATORYCLIA [id number] [place] [address] [place] Eosinophils (Bld) [#/Vol] 10*3/uL Normal <0.46 [facility] Comment on above: Order Comment: Speci men Type: BLOOD SPECIMENOrdering Facility: [facility] Address: [address] [place] [address] Performed By: #### 5 7021-8 ####[facility]ORATORYCLIA [id number] [address] [place] Eosinophils/100 WBC (Bld) 0.2 % Normal [facility] Comment on above: Order Comment: Speci men Type: BLOOD SPECIMENOrdering Facility: [facility] Address: [address] [place] [address] Performed By: #### 5 7021-8 ####[facility] [id number] [address] [place] Erythrocyte distribution width (RBC) [Ratio] 13.2 % Normal 11.5-15.0 [facility] Comment on above: Order Comment: Speci men Type: BLOOD SPECIMENOrdering Facility: [facility] Address: [address] [place] [address] Performed By: #### 5 7021-8 ####[facility]ATORYCLIA [id number] [address] [place] Hematocrit (Bld) [Volume fraction] 31.9 % Low 36.0-46.0 [facility] Comment on above: Order Comment: Speci men Type: BLOOD SPECIMENOrdering Facility: [facility] Address: [address] [place] [address] Performed By: #### 5 7021-8 ####[facility]ORATORYCLIA [id number] [place] [address] [place] Hemoglobin (Bld) [Mass/Vol] 10.4 g/dL Low 11.5-15.5 [facility] Comment on above: Order Comment: Speci men Type: BLOOD SPECIMENOrdering Facility: [facility] Address: [address] [place] [address] Performed By: #### 5 7021-8 ####[facility]ATORYCLIA [id number] [place] [address] [place] Immature granulocytes (Bld) [#/Vol] 10*3/uL Normal <0.10 [facility] Comment on above: Order Comment: Speci men Type: BLOOD SPECIMENOrdering Facility: [facility] Address: [address] [place] [address] Performed By: #### 5 7021-8 ####[facility] [id number] [place] [address] [place] Immature granulocytes/100 WBC (Bld) 0.4 % Normal [facility] Comment on above: Order Comment: Speci men Type: BLOOD SPECIMENOrdering Facility: [facility] Address: [address] [place] [address] Performed By: #### 5 7021-8 ####[facility] [id number] [place] [address] [place] Lymphocytes (Bld) [#/Vol] 0.97 10*3/uL Low 1.00-4.00 [facility] Comment on above: Order Comment: Speci men Type: BLOOD SPECIMENOrdering Facility: [facility] Address: [address] [place] [address] Performed By: #### 5 7021-8 ####[facility] [id number] [place] [address] [place] Lymphocytes/100 WBC (Bld) 18.8 % Normal [facility] Comment on above: Order Comment: Speci men Type: BLOOD SPECIMENOrdering Facility: [facility] Address: [address] [place] [address] Performed By: #### 5 7021-8 ####[facility] [id number] [address] [place] MCH (RBC) [Entitic mass] 27.8 pg Normal 26.0-34.0 [facility] Comment on above: Order Comment: Speci men Type: BLOOD SPECIMENOrdering Facility: [facility] Address: [address] [place] [address] Performed By: #### 5 7021-8 ####[facility] [id number] [place] [address] [place] MCHC (RBC) [Mass/Vol] 32.6 g/dL Normal 30.5-36.0 [facility] Comment on above: Order Comment: Speci men Type: BLOOD SPECIMENOrdering Facility: [facility] Address: [address] [place] [address] Performed By: #### 5 7021-8 ####[facility] [id number] [address] [place] MCV (RBC) [Entitic vol] 85.3 fL Normal 80.0-100.0 [facility] Comment on above: Order Comment: Speci men Type: BLOOD SPECIMENOrdering Facility: [facility] Address: [address] [place] [address] Performed By: #### 5 7021-8 ####[facility] [id number] [address] [place] Monocytes (Bld) [#/Vol] 0.17 10*3/uL Normal <0.87 [facility] Comment on above: Order Comment: Speci men Type: BLOOD SPECIMENOrdering Facility: [facility] Address: [address] [place] [address] Performed By: #### 5 7021-8 ####[facility]ORYIA [id number] [place] [id number] [place] Monocytes/100 WBC (Bld) 3.3 % Normal [facility] Comment on above: Order Comment: Speci men Type: BLOOD SPECIMENOrdering Facility: [facility] Address: [address] [place] [address] Performed By: #### 5 7021-8 ####[facility]ORATORYCLIA [id number] [place] [address] [place] Neutrophils (Bld) [#/Vol] 3.94 10*3/uL Normal 1.45-7.50 [facility] Comment on above: Order Comment: Speci men Type: BLOOD SPECIMENOrdering Facility: [facility] Address: [address] [place] [address] Performed By: #### 5 7021-8 ####[facility] [id number] [place] [address] [place] Neutrophils/100 WBC (Bld) 76.5 % Normal [facility] Comment on above: Order Comment: Speci men Type: BLOOD SPECIMENOrdering Facility: [facility] Address: [address] [place] [address] Performed By: #### 5 7021-8 ####[facility] [id number] [place] [id number] [place] Nucleated RBC (Bld) [#/Vol] 10*3/uL Normal <0.01 [facility] Comment on above: Order Comment: Speci men Type: BLOOD SPECIMENOrdering Facility: [facility] Address: [address] [place] [address] Performed By: #### 5 7021-8 ####[facility] [id number] [place] [address] [place] Nucleated RBC/100 WBC (Bld) [Ratio] 0.0 /100 WBC Normal [facility] Comment on above: Order Comment: Speci men Type: BLOOD SPECIMENOrdering Facility: [facility] Address: [address] [place] [address] Performed By: #### 5 7021-8 ####[facility] [id number] [place] [address] [place] Platelet mean volume (Bld) [Entitic vol] 10.0 fL Normal 9.0-12.7 [facility] Comment on above: Order Comment: Speci men Type: BLOOD SPECIMENOrdering Facility: [facility] Address: [address] [place] [address] Performed By: #### 5 7021-8 ####[facility]ORYCLIA [id number] [place] [address] [place] Platelets (Bld) [#/Vol] 225 10*3/uL Normal 150-400 [facility] Comment on above: Order Comment: Speci men Type: BLOOD SPECIMENOrdering Facility: [facility] Address: [address] [place] [address] Performed By: #### 5 7021-8 ####[facility] [id number] [place] [address] [place] RBC (Bld) [#/Vol] 3.74 10*6/uL Low 3.90-5.20 [facility] Comment on above: Order Comment: Speci men Type: BLOOD SPECIMENOrdering Facility: [facility] Address: [address] [place] [address] Performed By: #### 5 7021-8 ####[facility] [id number] [place] [address] [place] WBC (Bld) [#/Vol] 5.15 10*3/uL Normal 3.70-11.00 [facility] Comment on above: Order Comment: Speci men Type: BLOOD SPECIMENOrdering Facility: [facility] Address: [address] [place] [address] Performed By: #### 5 7021-8 ####[facility] [id number] [place] [address] [facility] [place] Comprehensive metabolic 2000 panelon 09-12-2023 Albumin [Mass/Vol] 4.0 g/dL Normal 3.9-4.9 [facility] Comment on above: Order Comment: Speci men Type: BLOOD SPECIMENOrdering Facility: [facility] Address: [address] [place] [address] Performed By: #### 2 4323-8, 85184-2, HCGED, 3040-3 ####[facility]ATORYCLIA [id number] [place] [address] [place] ALP [Catalytic activity/Vol] 56 U/L Normal 34-123 [facility] Comment on above: Order Comment: Speci men Type: BLOOD SPECIMENOrdering Facility: [facility] Address: [address] [place] [address] Performed By: #### 2 4323-8, 45992-8, HCGED, 3040-3 ####[facility]ORATORYCLIA [id number] [place] [address] [place] ALT [Catalytic activity/Vol] 38 U/L Normal 7-38 [facility] Comment on above: Order Comment: Speci men Type: BLOOD SPECIMENOrdering Facility: [facility] Address: [address] [place] [address] Performed By: #### 2 4323-8, 25980-0, HCGED, 3040-3 ####[facility]IA [id number] [place] [address] [place] Anion gap [Moles/Vol] 10 mmol/L Normal 8-15 [facility] Comment on above: Order Comment: Speci men Type: BLOOD SPECIMENOrdering Facility: [facility] Address: [address] [place] [address] Performed By: #### 2 4323-8, 78107-8, HCGED, 3040-3 ####[facility]ATORYCLIA [id number] [place] [address] [place] AST [Catalytic activity/Vol] 43 U/L High 13-35 [facility] Comment on above: Order Comment: Speci men Type: BLOOD SPECIMENOrdering Facility: [facility] Address: [address] [place] [address] Performed By: #### 2 4323-8, 88565-9, HCGED, 3040-3 ####[facility]IA [id number] [place] [address] [place] Bilirubin [Mass/Vol] 0.3 mg/dL Normal 0.2-1.3 [facility] Comment on above: Order Comment: Speci men Type: BLOOD SPECIMENOrdering Facility: [facility] Address: [address] [place] [address] Performed By: #### 2 4323-8, , HCGED, 0-3 ####[facility]IA [id number] [place] [address] [place] Calcium [Mass/Vol] 8.4 mg/dL Low 8.5-10.2 [facility] Comment on above: Order Comment: Speci men Type: BLOOD SPECIMENOrdering Facility: [facility] Address: [address] [place] [address] Performed By: #### 2 4323-8, , HCGED, 0-3 ####[facility]IA [id number] [place] [address] [place] Chloride [Moles/Vol] 107 mmol/L Normal 98-107 [facility] Comment on above: Order Comment: Speci men Type: BLOOD SPECIMENOrdering Facility: [facility] Address: [address] [place] [address] Performed By: #### 2 4323-8, , HCGED, 0-3 ####[facility]IA [id number] [place] [address] [place] CO2 [Moles/Vol] 21 mmol/L Low 22-30 [facility] ital Comment on above: Order Comment: Speci men Type: BLOOD SPECIMENOrdering Facility: [facility] Address: [address] [place] [address] Performed By: #### 2 4323-8, 02673-4, HCGED, 3040-3 ####[facility]ATORYIA [id number] [place] [address] [place] Creatinine [Mass/Vol] 0.67 mg/dL Normal 0.58-0.96 [facility] Comment on above: Order Comment: Geraldo marrero Type: BLOOD SPECIMENOrdering Facility: [facility] Address: [address] [place] [address] Performed By: #### 2 4323-8, 75643-1, HCGED, 3040-3 ####[facility]ATORYCLIA [id number] [place] [address] [facility] Creatinine and Glomerular filtration rate.predicted panel (S/P/Bld) 118 mL/min/1.73m??? Normal >=60 [facility] Comment on above: Order Comment: Geraldo marrero Type: BLOOD SPECIMENOrdering Facility: [facility] Address: [address] [place] [address] Result Comment: Jessica mated Glomerular Filtration Rate [...] actual GFR. Performed By: #### 2 4323-8, 68979-7, [facility], 3040-3 ####[facility]ORATORYCLIA [id number] [place] [address] [place] Glucose [Mass/Vol] 95 mg/dL Normal 74-99 [facility] Comment on above: Order Comment: Geraldo marrero Type: BLOOD SPECIMENOrdering Facility: [facility] Address: [address] [place] [address] Result Comment: The [place] Diabetes Association (ADA) provides guidance for cutoff [...] Standards of Medical Care in Diabetes 2016, [place] [employer]. Diabetes Care. 2016.39(Suppl 1). Performed By: #### 2 4323-8, , HCGED, 0-3 ####[facility]ORYCLIA [id number] [place] [address] [place] Potassium [Moles/Vol] 3.9 mmol/L Normal 3.7-5.1 [facility] Comment on above: Order Comment: Speci men Type: BLOOD SPECIMENOrdering Facility: [facility] Address: [address] [place] [address] Performed By: #### 2 432-8, , HCGED, 0-3 ####[facility]ITALCLIA [id number] [place] [address] [place] Protein [Mass/Vol] 6.4 g/dL Normal 6.3-8.0 [facility] Comment on above: Order Comment: Speci men Type: BLOOD SPECIMENOrdering Facility: [facility] Address: [address] [place] [address] Performed By: #### 2 432-8, , HCGED, 0-3 ####[facility]PITALCLIA [id number] [place] [address] [place] Sodium [Moles/Vol] 138 mmol/L Normal 136-144 [facility] Comment on above: Order Comment: Speci men Type: BLOOD SPECIMENOrdering Facility: [facility] Address: [address] [place] [address] Performed By: #### 2 4323-8, , HCGED, 0-3 ####[facility]ORYCLIA [id number] [place] [address] [place] Urea nitrogen [Mass/Vol] 11 mg/dL Normal 7-21 [facility] Comment on above: Order Comment: Speci men Type: BLOOD SPECIMENOrdering Facility: [facility] Address: [address] [place], [place] [address] Performed By: #### 2 4323-8, , HCGED, 3039-04 ####[facility]ATORYCLIA [id number] [place] [address] [place] ED NOTEon 09-12-2023 ED NOTE Normal [facility] ED NOTE Normal [facility] ED NOTE HNO ID: [id number] Author: HARMONY CHAVEZ, RN Service: ? Author Type: Registered Nurse Type: ED Notes Filed: 09/12/2023 16:23 Note Text: Per LIP, ok to give popsicle. Pt provided with popsicle. Pt tolerated PO well. Normal [facility] ED NOTE HNO ID: [id number] Author: AVTAR LIN, DEE Service: ? Author Type: Registered Nurse Type: ED Notes Filed: 09/12/2023 10:14 Note Text: Patient c/o mid abd pain. Patient was here yesterday . Patient states she was vomiting all night. Normal [facility] ED PROV NOTEon 09-12-2023 ED PROV NOTE Normal [facility] l Lipase SerPl-cCncon 09-12-19 24 Lipase [Catalytic activity/Vol] 40 U/L Normal 16-61 [facility] Comment on above: Order Comment: Speci men Type: BLOOD SPECIMENOrdering Facility: [facility] Address: [address] [place] [address] Performed By: #### 2 4323-8, , HCGED, 3039-04 ####[facility]ATORYCLIA [id number] [place] [address] [place] Magnesium SerPl-mCncon 09-11 Magnesium [Mass/Vol] 1.9 mg/dL Normal 1.7-2.3 [facility] Comment on above: Order Comment: Speci men Type: BLOOD SPECIMENOrdering Facility: [facility] Address: [address] [place], [place] [address] Performed By: #### 2 4323-8, , HCGED, 3039-04 ####[facility]ATORYCLIA [id number] [place] [address] [place] CBC W Auto Differential pane l (Bld)on 09-11-2023 Basophils (Bld) [#/Vol] 10*3/uL Normal <0.11 [facility] Comment on above: Order Comment: Speci men Type: BLOOD SPECIMENOrdering Facility: [facility] Address: [address] [place] [address] Performed By: #### 5 7021-8 ####[facility]ATORYIA [id number] [place] [address] [place] Basophils/100 WBC (Bld) 0.4 % Normal [facility] Comment on above: Order Comment: Speci men Type: BLOOD SPECIMENOrdering Facility: [facility] Address: [address] [place] [address] Performed By: #### 5 7021-8 ####[facility]IA [id number] [place] [address] [place] Differential cell count method Nom (Bld) Auto Normal [facility] Comment on above: Order Comment: Speci men Type: BLOOD SPECIMENOrdering Facility: [facility] Address: [address] [place] [address] Performed By: #### 5 7021-8 ####[facility]ORATORYIA [id number] [place] [address] [place] Eosinophils (Bld) [#/Vol] 10*3/uL Normal <0.46 [facility] Comment on above: Order Comment: Speci men Type: BLOOD SPECIMENOrdering Facility: [facility] Address: [address] [place] [address] Performed By: #### 5 7021-8 ####[facility]ATORYIA [id number] [place] [address] [place] Eosinophils/100 WBC (Bld) 0.4 % Normal [facility] Comment on above: Order Comment: Speci men Type: BLOOD SPECIMENOrdering Facility: [facility] Address: [address] [place] [address] Performed By: #### 5 7021-8 ####[facility]IA [id number] [place] [id number] [place] Erythrocyte distribution width (RBC) [Ratio] 13.0 % Normal 11.5-15.0 [facility] Comment on above: Order Comment: Speci men Type: BLOOD SPECIMENOrdering Facility: [facility] Address: [address] [place] [address] Performed By: #### 5 7021-8 ####[facility]IA [id number] [place] [address] [place] Hematocrit (Bld) [Volume fraction] 34.1 % Low 36.0-46.0 [facility] Comment on above: Order Comment: Speci men Type: BLOOD SPECIMENOrdering Facility: [facility] Address: [address] [place] [address] Performed By: #### 5 7021-8 ####[facility]IA [id number] [place] [address] [place] Hemoglobin (Bld) [Mass/Vol] 10.9 g/dL Low 11.5-15.5 [facility] Comment on above: Order Comment: Speci men Type: BLOOD SPECIMENOrdering Facility: [facility] Address: [address] [place] [address] Performed By: #### 5 7021-8 ####[facility]IA [id number] [place] [address] [place] Immature granulocytes (Bld) [#/Vol] 10*3/uL Normal <0.10 [facility] Comment on above: Order Comment: Speci men Type: BLOOD SPECIMENOrdering Facility: [facility] Address: [address] [place] [address] Performed By: #### 5 7021-8 ####[facility] LABORATORYIA [id number] [place] [id number] [place] Immature granulocytes/100 WBC (Bld) 0.2 % Normal [facility] Comment on above: Order Comment: Speci men Type: BLOOD SPECIMENOrdering Facility: [facility] Address: [address] [place] [address] Performed By: #### 5 7021-8 ####[facility]ORATORYCLIA [id number] [place] [address] [place] Lymphocytes (Bld) [#/Vol] 0.74 10*3/uL Low 1.00-4.00 [facility] Comment on above: Order Comment: Speci men Type: BLOOD SPECIMENOrdering Facility: [facility] Address: [address] [place] [address] Performed By: #### 5 7021-8 ####[facility]IA [id number] [address] [place] Lymphocytes/100 WBC (Bld) 14.6 % Normal [facility] Comment on above: Order Comment: Speci men Type: BLOOD SPECIMENOrdering Facility: [facility] Address: [address] [place] [address] Performed By: #### 5 7021-8 ####[facility]IA [id number] [place] [address] [place] MCH (RBC) [Entitic mass] 27.7 pg Normal 26.0-34.0 [facility] Comment on above: Order Comment: Speci men Type: BLOOD SPECIMENOrdering Facility: [facility] Address: [address] [place] [address] Performed By: #### 5 7021-8 ####[facility]ORATORYCLIA [id number] [place] [address] [place] MCHC (RBC) [Mass/Vol] 32.0 g/dL Normal 30.5-36.0 [facility] Comment on above: Order Comment: Speci men Type: BLOOD SPECIMENOrdering Facility: [facility] Address: [address] [place] [address] Performed By: #### 5 7021-8 ####[facility]ORATORYIA [id number] [place] [address] [place] MCV (RBC) [Entitic vol] 86.8 fL Normal 80.0-100.0 [facility] Comment on above: Order Comment: Speci men Type: BLOOD SPECIMENOrdering Facility: [facility] Address: [address] [place] [address] Performed By: #### 5 7021-8 ####[facility]ORATORYCLIA [id number] [place] [address] [place] Monocytes (Bld) [#/Vol] 0.18 10*3/uL Normal <0.87 [facility] Comment on above: Order Comment: Speci men Type: BLOOD SPECIMENOrdering Facility: [facility] Address: [address] [place] [address] Performed By: #### 5 7021-8 ####[facility]ATORYIA [id number] [place] [id number] [place] Monocytes/100 WBC (Bld) 3.6 % Normal [facility] Comment on above: Order Comment: Speci men Type: BLOOD SPECIMENOrdering Facility: [facility] Address: [address] [place] [address] Performed By: #### 5 7021-8 ####[facility]IA [id number] [place] [address] [place] Neutrophils (Bld) [#/Vol] 4.09 10*3/uL Normal 1.45-7.50 [facility] Comment on above: Order Comment: Speci men Type: BLOOD SPECIMENOrdering Facility: [facility] Address: [address] [place] [address] Performed By: #### 5 7021-8 ####[facility]ORATORYIA [id number] [place] [id number] [place] Neutrophils/100 WBC (Bld) 80.8 % Normal [facility] Comment on above: Order Comment: Speci men Type: BLOOD SPECIMENOrdering Facility: [facility] Address: [address] [place] [address] Performed By: #### 5 7021-8 ####[facility]ORATORYCLIA [id number] [place] [address] [place] Nucleated RBC (Bld) [#/Vol] 0.02 10*3/uL High <0.01 [facility] Comment on above: Order Comment: Speci men Type: BLOOD SPECIMENOrdering Facility: [facility] Address: [address] [place] [address] Performed By: #### 5 7021-8 ####[facility]ORATORYCLIA [id number] [place] [address] [place] Nucleated RBC/100 WBC (Bld) [Ratio] 0.4 /100 WBC Normal [facility] Comment on above: Order Comment: Speci men Type: BLOOD SPECIMENOrdering Facility: [facility] Address: [address] [place] [address] Performed By: #### 5 7021-8 ####[facility]IA [id number] [place] [id number] [place] Platelet mean volume (Bld) [Entitic vol] 10.7 fL Normal 9.0-12.7 [facility] Comment on above: Order Comment: Speci men Type: BLOOD SPECIMENOrdering Facility: [facility] Address: [address] [place] [address] Performed By: #### 5 7021-8 ####[facility]IA [id number] [place] [address] [place] Platelets (Bld) [#/Vol] 265 10*3/uL Normal 150-400 [facility] Comment on above: Order Comment: Speci men Type: BLOOD SPECIMENOrdering Facility: [facility] Address: [address] [place] [address] Performed By: #### 5 7021-8 ####[facility]ATORYIA [id number] [place] [address] [place] RBC (Bld) [#/Vol] 3.93 10*6/uL Normal 3.90-5.20 [facility] Comment on above: Order Comment: Speci men Type: BLOOD SPECIMENOrdering Facility: [facility] Address: [address] [place] [address] Performed By: #### 5 7021-8 ####[facility]ATORYIA [id number] [place] [address] [place] WBC (Bld) [#/Vol] 5.06 10*3/uL Normal 3.70-11.00 [facility] Comment on above: Order Comment: Speci men Type: BLOOD SPECIMENOrdering Facility: [facility] Address: [address] [place] [address] Performed By: #### 5 7021-8 ####[facility]IA [id number] [place] [address] [place] ABD/PEL W IVCONon 024 CT ABD/PEL W IVCON Normal [facility]ital Comprehensive metabolic 2000 panelon 09-11-2023 Albumin [Mass/Vol] 3.8 g/dL Low 3.9-4.9 [facility] Comment on above: Order Comment: Speci men Type: BLOOD SPECIMENOrdering Facility: [facility] Address: [address] [place] [address] Performed By: #### 3 040-3, 23576-9, ####[facility]ATORYCLIA [id number] [place] [address] [place] ALP [Catalytic activity/Vol] 57 U/L Normal 34-123 [facility] Comment on above: Order Comment: Speci men Type: BLOOD SPECIMENOrdering Facility: [facility] Address: [address] [place] [address] Performed By: #### 3 040-3, 98687-3, ####[facility]ORYIA [id number] [place] [address] [place] ALT [Catalytic activity/Vol] 38 U/L Normal 7-38 [facility] Comment on above: Order Comment: Speci men Type: BLOOD SPECIMENOrdering Facility: [facility] Address: [address] [place] [address] Performed By: #### 3 040-3, 57199-3, ####[facility]ATORYCLIA [id number] [place] [address] [place] Anion gap [Moles/Vol] 12 mmol/L Normal 8-15 [facility] Comment on above: Order Comment: Speci men Type: BLOOD SPECIMENOrdering Facility: [facility] Address: [address] [place] [address] Performed By: #### 3 040-3, , ####[facility]ORYCLIA [id number] [place] [address] [place] AST [Catalytic activity/Vol] 50 U/L High 13-35 [facility] Comment on above: Order Comment: Speci men Type: BLOOD SPECIMENOrdering Facility: [facility] Address: [address] [place] [address] Performed By: #### 3 040-3, , ####[facility]ATORYCLIA [id number] [place] [address] [place] Bilirubin [Mass/Vol] 0.3 mg/dL Normal 0.2-1.3 [facility] Comment on above: Order Comment: Speci men Type: BLOOD SPECIMENOrdering Facility: [facility] Address: [address] [place] [address] Performed By: #### 3 040-3, , ####[facility]ATORYCLIA [id number] [place] [address] [place] Calcium [Mass/Vol] 8.4 mg/dL Low 8.5-10.2 [facility] Comment on above: Order Comment: Speci men Type: BLOOD SPECIMENOrdering Facility: [facility] Address: [address] [place] [address] Performed By: #### 3 040-3, 57125-4, ####[facility]ITALCLIA [id number] [place] [address] [place] Chloride [Moles/Vol] 104 mmol/L Normal 98-107 [facility] Comment on above: Order Comment: Speci men Type: BLOOD SPECIMENOrdering Facility: [facility] Address: [address] [place] [address] Performed By: #### 3 040-3, 24392-6, ####[facility]IA [id number] [place] [address] [place] CO2 [Moles/Vol] 20 mmol/L Low 22-30 [facility] ital Comment on above: Order Comment: Speci men Type: BLOOD SPECIMENOrdering Facility: [facility] Address: [address] [place] [address] Performed By: #### 3 040-3, 81097-1, ####[facility] [id number] [place] [address] [place] Creatinine [Mass/Vol] 0.76 mg/dL Normal 0.58-0.96 [facility] Comment on above: Order Comment: Speci men Type: BLOOD SPECIMENOrdering Facility: [facility] Address: [address] [place] [address] Performed By: #### 3 040-3, 57878-6, ####[facility]IA [id number] [place] [address] [place] Creatinine and Glomerular filtration rate.predicted panel (S/P/Bld) 106 mL/min/1.73m??? Normal >=60 [facility] l Comment on above: Order Comment: Speci men Type: BLOOD SPECIMENOrdering Facility: [facility] Address: [address] [place] [address] Result Comment: Jessica mated Glomerular Filtration Rate [...] actual GFR. Performed By: #### 3 040-3, 38907-7, ####[facility]ATORYCLIA [id number] [place] [address] [place] Glucose [Mass/Vol] 97 mg/dL Normal 74-99 [facility] Comment on above: Order Comment: Speci men Type: BLOOD SPECIMENOrdering Facility: [facility] Address: [address] [place] [address] Result Comment: The [place] Diabetes [employer] (ADA) provides guidance for cutoff [...] Standards of Medical Care in Diabetes 2016, [place] [employer]. Diabetes Care. 2016.39(Suppl 1). Performed By: #### 3 040-3, 36287-9, ####[facility]ATORYCLIA [id number] [place] [address] [place] Potassium [Moles/Vol] 4.0 mmol/L Normal 3.7-5.1 [facility] Comment on above: Order Comment: Geraldo men Type: BLOOD SPECIMENOrdering Facility: [facility] Address: [address] [place] [address] Performed By: #### 3 040-3, 27053-9, ####[facility]ORYIA [id number] [place] [address] [place] Protein [Mass/Vol] 6.3 g/dL Normal 6.3-8.0 [facility] Comment on above: Order Comment: Speci men Type: BLOOD SPECIMENOrdering Facility: [facility] Address: [address] [place] [address] Performed By: #### 3 040-3, 53664-0, ####[facility]ITALCLIA [id number] [place] [address] [place] [facility] Sodium [Moles/Vol] 136 mmol/L Normal 136-144 [facility] Comment on above: Order Comment: Speci men Type: BLOOD SPECIMENOrdering Facility: [facility] Address: [address] [place] [address] Performed By: #### 3 040-3, 20109-9, ####[facility]ITALCLIA [id number] [place] [address] [place] Urea nitrogen [Mass/Vol] 13 mg/dL Normal 7-21 [facility] Comment on above: Order Comment: Speci men Type: BLOOD SPECIMENOrdering Facility: [facility] Address: [address] [place], [place] [address] Performed By: #### 3 040-3, 19277-3, ####[facility]ITALIA [id number] [place] [address] [facility] [place] ED NOTEon 09-11-2023 ED NOTE Normal [facility] ED NOTE HNO ID: [id number] Author: AVTAR LIN RN Service: ? Author Type: Registered Nurse Type: ED Notes Filed: 09/11/2023 11:47 Note Text: Normal [facility] ED NOTE Normal [facility] ED PROV NOTEon 09-11-2023 ED PROV NOTE Normal [facility] l Lipase SerPl-cCncon 09-11-19 24 Lipase [Catalytic activity/Vol] 47 U/L Normal 16-61 [facility] Comment on above: Order Comment: Speci men Type: BLOOD SPECIMENOrdering Facility: [facility] Address: [address] [place] [id number] Performed By: #### 3 040-3, 03894-2, ####[facility]ORATORYCLIA [id number] [place] [address] [place] Magnesium SerPl-ncon 09-10 Magnesium [Mass/Vol] 1.8 mg/dL Normal 1.7-2.3 [facility] Comment on above: Order Comment: Speci men Type: BLOOD SPECIMENOrdering Facility: [facility] Address: [facility] [place] [address] Performed By: #### 3 040-3, 33817-4, 54725-4 ####[facility]ORATORYCLIA [id number] [place] [address] [place] TERRELL CNNURSEon 08-30-2023 CNNURSE Normal [facility] CNNURSEon 08-26-2023 CNNURSE Normal [facility] EGD Study observation Narrat iveon 08-26-2023 A31 Gastrointestinal Endoscopy Patient Name: Abbey Garcia Procedure Date: 08/26/2023 3:47 PM Date of : 1990 Admit Type: Outpatient Age: 33 Room: [place] [address] Gender: Female Note Status: Finalized Attending MD: Britt Bradshaw MD, [id number] Procedure: Small bowel enteroscopy Indications: Heartburn Providers: [...] was characterized by healthy appearing mucosa. The smpzckbx-bb-zafnkmt limb was examined. The examined jejunum was [...] loss: none. Procedure Code(s): --- Professional --- 63667, Esophagogastroduode noscopy, flexible, transoral; diagnostic, including collection of specimen(s) by brushing or washing, when performed (separate procedure) CPT copyright 202 [employer]. All rights reserved. The codes documented in this report are preliminary and upon parking enforcement manager review may be revised to meet current [...] Note Initiated On: 08/26/2023 3:47 PM PROVATION [facility] Radiology Study observation (narrative) [facility] NURSING PROGon 08-26-2023 NURSING PROG Normal [facility] NURSING PROG Normal [facility] NURSING PROG Normal [facility] NURSING PROG Normal [facility] Small bowel enteroscopyon Small bowel enteroscopy Normal [facility] CNPNon 08-23-2023 CNPN Normal [facility] Activated partial thrombopla stin time (aPTT) in platelet poor plasma by coagulation aOrdered By: Claus Obrien on 08-21-2023 aPTT Coag (PPP) [Time] 28.4 s 25.1-36.5 [facility] Comment on above: A hematocrit value g reater than 55% may lead to inaccurate results in coagulation testing. Patients having hematocrit values >55% require a special collection tube for coagulation studies. Please contact the laboratory at [phone] for redraw instructions. Alanine aminotransferase [En zymatic activity/volume] in Serum or PlasmaOrdered By: Claus Obrien on 08-21-2023 ALT [Catalytic activity/Vol] 22 U/L Normal 7-52 [facility] Comment on above: Performed By: #### A CORY, [facility], CUU #### [facility] [address] [place] [address] [place] Albumin [Mass/volume] in Ser um or Plasma by Bromocresol green (BCG) dye binding methoOrdered By: Claus Obrien on 08-21-2023 Albumin BCG dye [Mass/Vol] 3.9 g/dL 3.5-5.7 [facility] Alkaline phosphatase [Enzyma tic activity/volume] in Serum or PlasmaOrdered By: Claus Obrien on 08-21-2023 ALP [Catalytic activity/Vol] 51 U/L Normal 34-104 [facility] Comment on above: Performed By: #### A CORY, [facility], CUU #### [facility] [address] [place] [address] [place] Aspartate aminotransferase [ Enzymatic activity/volume] in Serum or PlasmaOrdered By: Claus Obrien on 08-21-2023 AST [Catalytic activity/Vol] 35 U/L Normal 13-39 [facility] Comment on above: Performed By: #### A TAEPLUS, CG, CUU #### [address] Automated basophil %Ordered By: lCaus Obrien on 08-21-2023 Basophils/100 WBC (Bld) 1.0 % Normal . [facility] Comment on above: Performed By: #### H EPATIC, MG, LIPASE, CMP, CBC #### [address] Automated basophil countOrde red By: Claus Obrien on 08-21-2023 Basophils (Bld) [#/Vol] 0.0 10*3/uL Normal 0.0-0.2 [facility] Comment on above: Result Comment: PERF ORMED BY: [place] [address] PATHOLOGIST MULTINEEDLE SHIRRER BAUTISTA BAKER M.D. Performed By: #### H EPATIC, MG, LIPASE, CMP, CBC #### [address] Automated blood monocyte cou ntOrdered By: Claus Obrien on 08-21-2023 Monocytes (Bld) [#/Vol] 0.3 10*3/uL Normal 0.0-0.8 [facility] Comment on above: Performed By: #### H EPATIC, MG, LIPASE, CMP, CBC #### [address] Automated eosinophil %Ordere d By: Claus Obrien on 08-21-2023 Eosinophils/100 WBC (Bld) 2.4 % Normal . [facility] Comment on above: Performed By: #### H EPATIC, MG, LIPASE, CMP, CBC #### [address] Automated eosinophil countOr dered By: Claus Obrien on 08-21-2023 Eosinophils (Bld) [#/Vol] 0.1 10*3/uL Normal 0.0-0.45 [facility] Comment on above: Performed By: #### H EPATIC, MG, LIPASE, CMP, CBC #### [address] [place] [address] [place] Automated monocyte %Ordered By: Claus Obrien on 08-21-2023 Monocytes/100 WBC (Bld) 8.4 % Normal . [facility] Comment on above: Performed By: #### H EPATIC, MG, LIPASE, CMP, CBC #### [address] Automated neutrophil %Ordere d By: Claus Obrien on 08-21-2023 Neutrophils/100 WBC (Bld) 58.0 % Normal . [facility] Comment on above: Performed By: #### H EPATIC, MG, LIPASE, CMP, CBC #### [address] Basic Metabolic Panelon Creatinine Clr Calc Pharmacy 115.16 Normal [facility] Comment on above: Performed By: #### A DDONUAJESSICA, BRITTANIECG, CUU #### [address] GFR/1.73 sq M.predicted MDRD (S/P/Bld) [Vol rate/Area] mL/min/{1.73_m2} Normal [facility] Comment on above: Performed By: #### A DDONUABRITTANIE LOPEZCG, CUU #### [address] Bilirubin Test strip Ql (U)O rdered By: Claus Obrien on 08-21-2023 Bilirubin Ql (U) Negative Negative [facility] Bilirubin.direct [Mass/volum e] in Serum or PlasmaOrdered By: Claus Obrien on 08-21-2023 Bilirubin.direct [Mass/Vol] 0.10 mg/dL 0.03-0.18 [facility] Bilirubin.total [Mass/volume ] in Serum or PlasmaOrdered By: Claus Obrien on 08-21-2023 Bilirubin [Mass/Vol] 0.3 mg/dL Normal 0.3-1.0 [facility] Comment on above: Performed By: #### A DDONUAPLUS, UHCG, CUU #### [address] [address] [facility] CT abdomen pelvis w conon CT abdomen pelvis w con [facility] [address] [place] [address] [place] [address] CT Scan Report Signed Patient: Abbey Garcia MR#: [id number] : 1990 Acct:[id number] Age/Sex: 33 / F ADM Date: 08/21/23 Loc: ER Room: Type: [facility] ER Attending Dr: Copies to: Claus [...] Maricruz Hutchinson M.D.08/21/2023 12:03 PM Dictation Location: [place] [address] Transcribed By: SULEMA 08/21/23 1203 Dictated By: Maricruz Hutchinson MD 08/21/23 1157 Signed By: 08/21/23 1203 Normal [facility] Calcium [Mass/volume] in Ser um or PlasmaOrdered By: Claus Obrien on 08-21-2023 Calcium [Mass/Vol] 8.4 mg/dL Low 8.6-10.3 [facility] Comment on above: Performed By: #### A MALLORIEUAJESSICA, BRITTANIECG, CUU #### [facility] [address] [place] [address] [place] Carbon dioxide, total [Moles /volume] in Serum or PlasmaOrdered By: Claus Obrien on 08-21-2023 CO2 [Moles/Vol] 21.7 mmol/L Normal 21.0-31.0 [facility] Comment on above: Performed By: #### A DDONUAPLUS, UHCG, CUU #### [facility] [address] [place] [address] [place] Chloride [Moles/volume] in S elder or PlasmaOrdered By: Claus Obrien on 08-21-2023 Chloride [Moles/Vol] 109 mmol/L High 98-107 [facility] Comment on above: Performed By: #### A DDONUAPLUS, UHCG, CUU #### [facility] [address] [place] [address] [place] Choriogonadotropin.beta subu nit [Units/volume] in Serum or PlasmaOrdered By: Claus Obrien on 08-21-2023 HCG.beta subunit Qn Negative [facility] Color of Urine by AutoOrdere d By: Claus Obrien on 08-21-2023 Color (U) Colorless Normal Yellow [facility] Comment on above: Order Comment: Name Collection Type:: Clean-Voided Midstream Performed By: #### A DDONUAPLUS, UHCG, CUU #### [address] Complete Blood Count Auto Di ffon 08-21-2023 Mean Corpuscular HGB Conc 33.6 g/dL Normal 32.0-35.0 [facility] Comment on above: Performed By: #### H EPATIC, MG, LIPASE, CMP, CBC #### [address] Monocytes/100 WBC (Bld) 14.35 % Normal 0.00-20.00 [facility] Comment on above: Performed By: #### H EPATIC, MG, LIPASE, CMP, CBC #### [address] NRBC% 0.1 /100{WBC} Normal 0-0.5 [facility] Comment on above: Performed By: #### H EPATIC, MG, LIPASE, CMP, CBC #### [address] Creatinine [Mass/volume] in Serum or PlasmaOrdered By: Claus Obrien on 08-21-2023 Creatinine [Mass/Vol] 0.73 mg/dL Normal 0.60-1.20 [facility] Comment on above: Performed By: #### A CORY, [facility], U #### [address] Erythrocyte distribution wid th [Ratio] by Automated countOrdered By: Claus Obrien on 08-21-2023 Erythrocyte distribution width (RBC) [Ratio] 13.7 % Normal 11.9-15.3 [facility] Comment on above: Performed By: #### H EPATIC, MG, LIPASE, CMP, CBC #### [address] Erythrocytes [#/volume] in B lood by Automated countOrdered By: Claus Obrien on 08-21-2023 RBC (Bld) [#/Vol] 3.89 10*6/uL Normal 3.60-5.00 [facility] Comment on above: Performed By: #### H EPATIC, MG, LIPASE, CMP, CBC #### [facility] [address] [place] [address] [place] Glucose [Mass/volume] in Ser um or PlasmaOrdered By: Claus Obrien on 08-21-2023 Glucose [Mass/Vol] 83 mg/dL Normal 70-100 [facility] Comment on above: ADA recommended refe rence rangeRandom Glucose Reference Range is dependent on time and content of last meal. Glucose of more than 200 mg/dL in a nonstressed, ambulatory subject supports the diagnosis of Diabetes Mellitus. Result Comment: [place] Glucose Reference Range is dependent on time and content of last meal. Glucose of more than 200 mg/dL in a nonstressed, ambulatory subject supports the diagnosis of Diabetes Mellitus. ADA recommended reference range Performed By: #### A DDONUAPLUS, UHCG, CUU #### [facility] [address] [place] [id number] [place] Glucose [Mass/volume] in Uri ne by Test stripOrdered By: Claus Obrien on 08-21-2023 Glucose Test strip (U) [Mass/Vol] Normal mg/dL Normal [facility] HCG ( test) IA.rapi d Ql (U)Ordered By: Claus Obrien on 08-21-2023 HCG ( test) Ql (U) Negative [facility] HCG,Qualitative Serumon HCG,Qualitative Serum Negative Normal [facility] Comment on above: Result Comment: PERF ORMED BY: [address] [place] [id number] PATHOLOGIST MULTINEEDLE SHIRRER BAUTISTA BAKER M.D. Performed By: #### A DDONUAPLUS, UHCG, CUU #### [facility] [address] [place] [address] [place] HCG,Urineon 08-21-2023 Beta HCG ( test) Ql (U) Negative Normal [facility] Comment on above: Order Comment: Name Collection Type:: Clean-Voided Midstream Result Comment: PERF ORMED BY: [address] [place] [id number] PATHOLOGIST MULTINEEDLE SHIRRER JIANLAN SUN M.D. Performed By: #### A NISHONUAJESSICA, BRITTANIECG, CUU #### [address] Hematocrit [Volume Fraction] of Blood by Automated countOrdered By: Claus Obrien on 08-21-2023 Hematocrit (Bld) [Volume fraction] 33.5 % Low 34.0-46.4 [facility] Comment on above: Performed By: #### H EPATIC, MG, LIPASE, CMP, CBC #### [address] Hemoglobin Test strip Ql (U) Ordered By: Claus Obrien on 08-21-2023 Hemoglobin Ql (U) Negative Negative [facility] Hemoglobin [Mass/volume] in BloodOrdered By: Claus Obrien on 08-21-2023 Hemoglobin (Bld) [Mass/Vol] 11.3 g/dL Low 11.8-15.4 [facility] Comment on above: Performed By: #### H EPATIC, MG, LIPASE, CMP, CBC #### [address] Hepatic Panelon 08-21-2023 Albumin [Mass/Vol] 3.9 g/dL Normal 3.5-5.7 [facility] Comment on above: Performed By: #### A DDONUAJESSICA, CG, CUU #### [address] Bilirubin,Indirect 0.2 mg/dL Normal [facility] Comment on above: Performed By: #### A DDONUAJESSICA, CG, CUU #### [address] Bilirubin.indirect [Mass/Vol] 0.10 mg/dL Normal 0.03-0.18 [facility] Comment on above: Performed By: #### A DDONUAJESSICA, UHCG, CUU #### [address] INR in Platelet poor plasma by Coagulation assayOrdered By: Claus Obrien on 08-21-2023 INR Coag (PPP) [Relative time] 1.1 {INR} Normal [facility] Comment on above: INR Therapeutic Rang e [...] CUU #### [facility] [address] [place] [address] [place] Ketones [Presence] in Urine by Test stripOrdered By: Claus Obrien on 08-21-2023 Ketones Ql (U) Negative Normal Negative [facility] Comment on above: Order Comment: Name Collection Type:: Clean-Voided Midstream Performed By: #### A DDONUAPLUS, UHCG, CUU #### [facility] [address] [place] [address] [place] Leukocyte esterase [Presence ] in Urine by Test stripOrdered By: Claus Obrien on 08-21-2023 Leukocyte esterase Test strip Ql (U) Negative Normal Negative [facility] Comment on above: Order Comment: Name Collection Type:: Clean-Voided Midstream Performed By: #### A DDONUAPLUS, UHCG, CUU #### [facility] [address] [place] [address] [place] Leukocytes [#/volume] correc darvin for nucleated erythrocytes in Blood by Automated counOrdered By: Claus Obrien on 08-21-2023 WBC corrected for nucl RBC Auto (Bld) [#/Vol] 3.9 10*3/uL 3.8-11.6 [facility] Leukocytes [#/volume] in Blo od by Automated countOrdered By: Claus Obrien on 08-21-2023 WBC (Bld) [#/Vol] 3.9 10*3/uL Normal 3.8-11.6 [facility] Comment on above: Performed By: #### H EPATIC, MG, LIPASE, CMP, CBC #### [address] Lipase [Enzymatic activity/v olume] in Serum or PlasmaOrdered By: Claus Obiren on 08-21-2023 Lipase [Catalytic activity/Vol] 43.0 U/L Normal 11.0-82.0 [facility] Comment on above: Performed By: #### A DDONUAPLUS, CG, CUU #### [address] Lymphocytes [#/volume] in Bl ood by Automated countOrdered By: Claus Obrien on 08-21-2023 Lymphocytes (Bld) [#/Vol] 1.2 10*3/uL Normal 1.00-4.8 [facility] Comment on above: Performed By: #### H EPATIC, MG, LIPASE, CMP, CBC #### [address] Lymphocytes/100 leukocytes i n Blood by Automated countOrdered By: Claus Obrien on 08-21-2023 Lymphocytes/100 WBC (Bld) 30.2 % Normal . [facility] Comment on above: Performed By: #### H EPATIC, MG, LIPASE, CMP, CBC #### [address] MCH [Entitic mass] by Automa darvin countOrdered By: Claus Obrien on 08-21-2023 MCH (RBC) [Entitic mass] 29.0 pg Normal 24.7-34.3 [facility] Comment on above: Performed By: #### H EPATIC, MG, LIPASE, CMP, CBC #### [address] MCHC Auto (RBC) [Mass/Vol]Or dered By: Claus Obrien on 08-21-2023 MCHC (RBC) [Mass/Vol] 33.6 g/dL 32.0-35.0 [facility] MCV [Entitic volume] by Auto mated countOrdered By: Claus Obrien on 08-21-2023 MCV (RBC) [Entitic vol] 86.2 fL Normal 80-100 [facility] Comment on above: Performed By: #### H EPATIC, MG, LIPASE, CMP, CBC #### [facility] [address] [place] [address] [place] Monocyte distribution width [Entitic volume] in Blood by AutomatedOrdered By: Claus Obrien on 08-21-2023 Monocyte distribution width Auto (Bld) [Entitic vol] 14.35 % 0.00-20.00 [facility] Neutrophils [#/volume] in Bl ood by Automated countOrdered By: Claus Obrien on 08-21-2023 Neutrophils (Bld) [#/Vol] 2.3 10*3/uL Normal 1.8-7.7 [facility] Comment on above: Performed By: #### H EPATIC, MG, LIPASE, CMP, CBC #### [facility] [address] Nitrite Test strip Ql (U)Ord ered By: Claus Obrien on 08-21-2023 Nitrite Ql (U) Negative Negative [facility] No Panel InformationOrdered By: Claus Obrien on 08-21-2023 Estimated GFR (CKD-EPI) > 60.0 mL/Min [facility] Creatinine Clearance (Chem 115.16 [facility] Nucleated erythrocytes [Pres ence] in Blood by Automated countOrdered By: Claus Obrien on 08-21-2023 Nucleated RBC Auto Ql (Bld) 0.1 /100{WBC} 0-0.5 [facility] Partial Thromboplastin Timeo n 08-21-2023 aPTT Coag (Bld) [Time] 28.4 s Normal 25.1-36.5 [facility] Comment on above: Result Comment: A he matocrit value greater than 55% may lead to inaccurate results in coagulation testing. Patients having hematocrit values >55% require a special collection tube for coagulation studies. Please contact the laboratory at [phone] for redraw instructions. PERFORMED BY: [place] [address] PATHOLOGIST MULTINEEDLE SHIRRER BAUTISTA BAKER M.D. Performed By: #### A JOSESITO RAY, CUU #### [address] Platelet mean volume [Entiti c volume] in Blood by Automated countOrdered By: Claus Obrien on 08-21-2023 Platelet mean volume (Bld) [Entitic vol] 8.9 fL Normal 6.3-10.7 [facility] Comment on above: Performed By: #### H EPATIC, MG, LIPASE, CMP, CBC #### [address] Platelets [#/volume] in Bloo d by Automated countOrdered By: Claus Obrien on 08-21-2023 Platelets (Bld) [#/Vol] 208 10*3/uL Normal 150-450 [facility] Comment on above: Performed By: #### H EPATIC, MG, LIPASE, CMP, CBC #### [address] Potassium [Moles/volume] in Serum or PlasmaOrdered By: Claus Obrien on 08-21-2023 Potassium [Moles/Vol] 3.6 mmol/L Normal 3.5-5.1 [facility] Comment on above: Performed By: #### A CORY, JOSESITO, CUU #### [address] Protein Test strip (U) [Mass /Vol]Ordered By: Claus Obrien on 08-21-2023 Protein (U) [Mass/Vol] Negative Negative [facility] Protein [Mass/volume] in Ser um or PlasmaOrdered By: Claus Obrien on 08-21-2023 Protein [Mass/Vol] 6.4 g/dL Normal 6.4-8.9 [facility] Comment on above: Performed By: #### A CORY, ALIYAHG, CUU #### [place] [address] [place] Prothrombin time (PT)Ordered By: Claus Obrien on 08-21-2023 PT Coag (PPP) [Time] 12.5 s Normal 9.0-12.9 [facility] Comment on above: A hematocrit value g reater than 55% may lead to inaccurate results in coagulation testing. Patients having hematocrit values >55% require a special collection tube for coagulation studies. Please contact the laboratory at [phone] for redraw instructions. Result Comment: A he matocrit value greater than 55% may lead to inaccurate results in coagulation testing. Patients having hematocrit values >55% require a special collection tube for coagulation studies. Please contact the laboratory at [phone] for redraw instructions. Performed By: #### A ALIYAH RAYG, CUU #### [address] Serum globulin measurement b y calculation (mass/volume)Ordered By: Claus Obrien on 08-21-2023 Globulin (S) [Mass/Vol] 2.5 g/dL Normal [facility] Comment on above: Performed By: #### A MALLORIEUABRITTANIE LOPEZCG, CUU #### [facility] [address] [place] [address] Serum or plasma albumin/glob ulin mass ratioOrdered By: Claus Obrien on 08-21-2023 Albumin/Globulin [Mass ratio] 1.6 {ratio} [facility] Comment on above: Performed By: #### A DDBRITTANIE BERNABECG, CUU #### [facility] [address] [place] [address] Serum or plasma anion gap de terminationOrdered By: Claus Obrien on 08-21-2023 Anion gap [Moles/Vol] 8.9 mmol/L Normal 6.0-15.0 [facility] Comment on above: Performed By: #### A DDONUAJESSICA, UHCG, CUU #### [address] Serum or plasma non-glucuron idated bilirubin measurement (mass/volume)Ordered By: Claus Obrien on 08-21-2023 Bilirubin.indirect [Mass/Vol] 0.2 mg/dL [facility] Sodium [Moles/volume] in Ser um or PlasmaOrdered By: Claus Obrien on 08-21-2023 Sodium [Moles/Vol] 136 mmol/L Normal 136-145 [facility] Comment on above: Performed By: #### A DDONUAPLUS, UHCG, CUU #### [facility] [address] Specific gravity Test strip (U) [Rel density]Ordered By: Claus Obrien on 08-21-2023 Specific gravity (U) [Rel density] 1.004 1.001-1.030 [facility] Urea nitrogen [Mass/volume] in Serum or PlasmaOrdered By: Claus Obrien on 08-21-2023 Urea nitrogen [Mass/Vol] 8 mg/dL Normal 7-25 [facility] Comment on above: Performed By: #### A DDONUAPLUS, UHCG, CUU #### [place] [address] [place] Urinalysison 08-21-2023 Bilirubin,Urine Negative Normal Negative [facility] [place] [facility] Comment on above: Order Comment: Name Collection Type:: Clean-Voided Midstream Performed By: #### A DDONUAPLUS, UHCG, CUU #### [address] Glucose Ql (U) Normal Normal Normal [facility] Comment on above: Order Comment: Name Collection Type:: Clean-Voided Midstream Performed By: #### A DDONUAPLUS, UHCG, CUU #### [place] [address] [place] Nitrite,Urine Negative Normal Negative [facility] Comment on above: Order Comment: Name Collection Type:: Clean-Voided Midstream Performed By: #### A DDONUAPLUS, UHCG, CUU #### [address] Occult Blood,Urine Negative Normal Negative [facility] Comment on above: Order Comment: Name Collection Type:: Clean-Voided Midstream Performed By: #### A DDONUAPLUS, UHCG, CUU #### [address] Protein,Urine Negative Normal Negative [facility] Comment on above: Order Comment: Name Collection Type:: Clean-Voided Midstream Performed By: #### A DDONUAPLUS, UHCG, CUU #### [address] Specificy Arjay,Urine 1.004 Normal 1.001-1.030 [facility] Comment on above: Order Comment: Name Collection Type:: Clean-Voided Midstream Performed By: #### A DDONUAPLUS, UHCG, CUU #### [address] Urobilinogen,Urine Normal Normal Normal [facility] Comment on above: Order Comment: Name Collection Type:: Clean-Voided Midstream Performed By: #### A DDONUAPLUS, UHCG, CUU #### [address] Urine appearanceOrdered By: Claus Obrien on 08-21-2023 Appearance (U) Clear Normal Clear [facility] Comment on above: Order Comment: Name Collection Type:: Clean-Voided Midstream Performed By: #### A DDONUAPLUS, UHCG, CUU #### [address] Urobilinogen Test strip (U) [Mass/Vol]Ordered By: Claus Obrien on 08-21-2023 Urobilinogen (U) [Mass/Vol] Normal mg/dL Normal [facility] pH of Urine by Test stripOrd ered By: Claus Obrien on 08-21-2023 pH (U) 6.5 [pH] Normal 5.0-9.0 [facility] Comment on above: Order Comment: Name Collection Type:: Clean-Voided Midstream Performed By: #### A DDONUAPLUS, UHCG, CUU #### [place] [address] [place] CNPNon 08-18-2023 CNPN Normal [facility] Alanine aminotransferase [En zymatic activity/volume] in Serum or PlasmaOrdered By: Shaan Sabillon on 08-14-2023 ALT [Catalytic activity/Vol] 21 U/L Normal 7-52 [facility] Comment on above: Performed By: #### A JOSESITO RAY, CUU #### [facility] [address] [place] [address] Albumin [Mass/volume] in Ser um or Plasma by Bromocresol green (BCG) dye binding methoOrdered By: Shaan Sabillon on 08-14-2023 Albumin BCG dye [Mass/Vol] 4.2 g/dL 3.5-5.7 [facility] Alkaline phosphatase [Enzyma tic activity/volume] in Serum or PlasmaOrdered By: Shaan Sabillon on 08-14-2023 ALP [Catalytic activity/Vol] 59 U/L Normal 34-104 [facility] Comment on above: Performed By: #### A CORY ELIS, CUU #### [address] Aspartate aminotransferase [ Enzymatic activity/volume] in Serum or PlasmaOrdered By: Shaan Sabillon on 08-14-2023 AST [Catalytic activity/Vol] 32 U/L Normal 13-39 [facility] Comment on above: Performed By: #### A JOSESITO RAY, CUU #### [address] Automated basophil %Ordered By: Shaan Sabillon on 08-14-2023 Basophils/100 WBC (Bld) 0.6 % Normal . [facility] Comment on above: Performed By: #### A JOSESITO RAY, CUU #### [address] Automated basophil countOrde red By: Shaan Sabillon on 08-14-2023 Basophils (Bld) [#/Vol] 0.0 10*3/uL Normal 0.0-0.2 [facility] Comment on above: Result Comment: PERF ORMED BY: [place] [address] PATHOLOGIST MULTINEEDLE SHIRRER BAUTISTA BAKER M.D. Performed By: #### A CORY ELIS, CUU #### [address] Automated blood monocyte cou ntOrdered By: Shaan Sabillon on 08-14-2023 Monocytes (Bld) [#/Vol] 0.5 10*3/uL Normal 0.0-0.8 [facility] Comment on above: Performed By: #### A CORY ElroyG, CUU #### [address] Automated eosinophil %Ordere d By: Shaan Sabillon on 08-14-2023 Eosinophils/100 WBC (Bld) 0.7 % Normal . [facility] Comment on above: Performed By: #### A JOSESITO RAY, CUU #### [address] Automated eosinophil countOr dered By: Shaan Sabillon on 08-14-2023 Eosinophils (Bld) [#/Vol] 0.0 10*3/uL Normal 0.0-0.45 [facility] Comment on above: Performed By: #### A CORY, ALIYAHG, CUU #### [address] Automated monocyte %Ordered By: Shaan Sabillon on 08-14-2023 Monocytes/100 WBC (Bld) 7.0 % Normal . [facility] Comment on above: Performed By: #### A ALIYAH RAYG, CUU #### [address] Automated neutrophil %Ordere d By: Shaan Sabillon on 08-14-2023 Neutrophils/100 WBC (Bld) 54.4 % Normal . [facility] Comment on above: Performed By: #### A DDFLORECITA CG, CUU #### [address] Basic Metabolic Panelon 07-17 Creatinine Clr Calc Pharmacy 116.71 Normal [facility] Comment on above: Performed By: #### A CORY ELIS, CUU #### [address] GFR/1.73 sq M.predicted MDRD (S/P/Bld) [Vol rate/Area] mL/min/{1.73_m2} Normal [facility] Comment on above: Performed By: #### A CORY, ELIS, CUU #### [address] Bilirubin Test strip Ql (U)O rdered By: Shaan Sabillon on 08-14-2023 Bilirubin Ql (U) Negative Negative [facility] Bilirubin.direct [Mass/volum e] in Serum or PlasmaOrdered By: Shaan Sabillon on 08-14-2023 Bilirubin.direct [Mass/Vol] 0.10 mg/dL 0.03-0.18 [facility] Bilirubin.total [Mass/volume ] in Serum or PlasmaOrdered By: Shaan Sabillon on 08-14-2023 Bilirubin [Mass/Vol] 0.3 mg/dL Normal 0.3-1.0 [facility] Comment on above: Performed By: #### A CORY, ELIS, CUU #### [address] abdomen pelvis w conon CT abdomen pelvis w con [facility] [place] [address] [place] [address] CT Scan Report Signed Patient: Abbey Garcia MR#: [id number] : 1990 Acct:[id number] Age/Sex: 33 / F ADM Date: 08/14/23 Loc: ER Room: Type: [facility] ER Attending Dr: Copies to: Shaan [...] Medel Jr., D.O.08/14/2023 5:38 PM Dictation Location: [facility]-15 Transcribed By: [facility] 08/14/23 173 Dictated By: Cornel Medel Jr, DO 08/14/231735 Signed By: 08/14/231737 Normal [facility] Calcium [Mass/volume] in Ser um or PlasmaOrdered By: Shaan Sabillon on 08-14-2023 Calcium [Mass/Vol] 8.7 mg/dL Normal 8.6-10.3 [facility] Comment on above: Performed By: #### A CORY, ELIS, CUU #### [facility] [address] Carbon dioxide, total [Moles /volume] in Serum or PlasmaOrdered By: Shaan Sabillon on 08-14-2023 CO2 [Moles/Vol] 21.8 mmol/L Normal 21.0-31.0 [facility] Comment on above: Performed By: #### A CORY, CG, CUU #### [address] Chloride [Moles/volume] in S elder or PlasmaOrdered By: Shaan Sabillon on 08-14-2023 Chloride [Moles/Vol] 110 mmol/L High 98-107 [facility] Comment on above: Performed By: #### A DDONUAPLUS, UHCG, CUU #### [address] Color of Urine by AutoOrdere d By: Shaan Sabillon on 08-14-2023 Color (U) Light-yellow Normal Yellow [facility] Comment on above: Order Comment: Name Collection Type:: Clean-Voided Midstream Performed By: #### A DDONUAPLUS, UHCG, CUU #### [address] Complete Blood Count Auto Di ffon 08-14-2023 Mean Corpuscular HGB Conc 33.4 g/dL Normal 32.0-35.0 [facility] Comment on above: Performed By: #### A DDONUAPLUS, UHCG, CUU #### [place] [address] [place] Monocytes/100 WBC (Bld) 16.29 % Normal 0.00-20.00 [facility] Comment on above: Performed By: #### A DDONUAPLUS, UHCG, CUU #### [place] [address] [place] NRBC% 0.0 /100{WBC} Normal 0-0.5 [facility] Comment on above: Performed By: #### A DDONUAPLUS, UHCG, CUU #### [address] Creatinine [Mass/volume] in Serum or PlasmaOrdered By: Shaan Sabillon on 08-14-2023 Creatinine [Mass/Vol] 0.72 mg/dL Normal 0.60-1.20 [facility] Comment on above: Performed By: #### A DDONUAPLUS, UHCG, CUU #### [address] [place] [address] [place] Erythrocyte distribution wid th [Ratio] by Automated countOrdered By: Shaan Sabillon on 08-14-2023 Erythrocyte distribution width (RBC) [Ratio] 14.0 % Normal 11.9-15.3 [facility] Comment on above: Performed By: #### A DDONUAPLUS, UHCG, CUU #### [facility] [address] Erythrocytes [#/volume] in B lood by Automated countOrdered By: Shaan Sabillon on 08-14-2023 RBC (Bld) [#/Vol] 3.99 10*6/uL Normal 3.60-5.00 [facility] Comment on above: Performed By: #### A DDONUAPLUS, UHCG, CUU #### [facility] [address] Glucose [Mass/volume] in Ser um or PlasmaOrdered By: Shaan Sabillon on 08-14-2023 Glucose [Mass/Vol] 82 mg/dL Normal 70-100 [facility] Comment on above: ADA recommended refe rence rangeRandom Glucose Reference Range is dependent on time and content of last meal. Glucose of more than 200 mg/dL in a nonstressed, ambulatory subject supports the diagnosis of Diabetes Mellitus. Result Comment: [place] Glucose Reference Range is dependent on time and content of last meal. Glucose of more than 200 mg/dL in a nonstressed, ambulatory subject supports the diagnosis of Diabetes Mellitus. ADA recommended reference range Performed By: #### A DDONUAPLUS, UHCG, CUU #### [facility] [address] [place] [address] [place] Glucose [Mass/volume] in Uri ne by Test stripOrdered By: Shaan Sabillon on 08-14-2023 Glucose Test strip (U) [Mass/Vol] Normal mg/dL Normal [facility] Hematocrit [Volume Fraction] of Blood by Automated countOrdered By: Shaan Sabillon on 08-14-2023 Hematocrit (Bld) [Volume fraction] 34.7 % Normal 34.0-46.4 [facility] Comment on above: Performed By: #### A DDONUAPLUS, UHCG, CUU #### [address] Hemoglobin Test strip Ql (U) Ordered By: Shaan Sabillon on 08-14-2023 Hemoglobin Ql (U) Negative Negative [facility] Hemoglobin [Mass/volume] in BloodOrdered By: Shaan Sabillon on 08-14-2023 Hemoglobin (Bld) [Mass/Vol] 11.6 g/dL Low 11.8-15.4 [facility] Comment on above: Performed By: #### A DDONUAPLUS, UHCG, CUU #### [address] Hepatic Panelon 08-14-2023 Albumin [Mass/Vol] 4.2 g/dL Normal 3.5-5.7 [facility] Comment on above: Performed By: #### A DDONUABRITTANIE LOPEZCG, CUU #### [address] Bilirubin,Indirect 0.2 mg/dL Normal [facility] Comment on above: Performed By: #### A DDONUAPLUS, UHCG, CUU #### [address] Bilirubin.indirect [Mass/Vol] 0.10 mg/dL Normal 0.03-0.18 [facility] Comment on above: Performed By: #### A DDONUAPLUS UHCG, CUU #### [address] Ketones [Presence] in Urine by Test stripOrdered By: Shaan Sabillon on 08-14-2023 Ketones Ql (U) Negative Normal Negative [facility] Comment on above: Order Comment: Name Collection Type:: Clean-Voided Midstream Performed By: #### A DDONUAPLUS, UHCG, CUU #### [address] Lactate [Moles/volume] in Se rum or PlasmaOrdered By: Shaan Sabillon on 08-14-2023 Lactate [Moles/Vol] 0.6 mmol/L Normal 0.5-2.2 [facility] Comment on above: Result Comment: PERF ORMED BY: [place] [address] PATHOLOGIST MULTINEEDLE SHIRRER BAUTISTA BAKER M.D. Performed By: #### A JOSESITO RAY, CUU #### [address] Leukocyte esterase [Presence ] in Urine by Test stripOrdered By: Shaan Sabillon on 08-14-2023 Leukocyte esterase Test strip Ql (U) Negative Normal Negative [facility] Comment on above: Order Comment: Name Collection Type:: Clean-Voided Midstream Performed By: #### A JOSESITO RAY, CUU #### [address] Leukocytes [#/volume] correc darvin for nucleated erythrocytes in Blood by Automated counOrdered By: Shaan Sabillon on 08-14-2023 WBC corrected for nucl RBC Auto (Bld) [#/Vol] 6.6 10*3/uL 3.8-11.6 [facility] Leukocytes [#/volume] in Blo od by Automated countOrdered By: Shaan Sabillon on 08-14-2023 WBC (Bld) [#/Vol] 6.6 10*3/uL Normal 3.8-11.6 [facility] Comment on above: Performed By: #### A JOSESITO RAY, CUU #### [address] Lipase [Enzymatic activity/v olume] in Serum or PlasmaOrdered By: Shaan Sabillon on 08-14-2023 Lipase [Catalytic activity/Vol] 67.0 U/L Normal 11.0-82.0 [facility] Comment on above: Result Comment: PERF ORMED BY: [place] [address] PATHOLOGIST MULTINEEDLE SHIRRER BAUTISTA BAKER M.D. Performed By: #### A JOSESITO RAY, CUU #### [facility] [address] Lymphocytes [#/volume] in Bl ood by Automated countOrdered By: Shaan Sabillon on 08-14-2023 Lymphocytes (Bld) [#/Vol] 2.5 10*3/uL Normal 1.00-4.8 [facility] Comment on above: Performed By: #### A JOSESITO RAY, CUU #### [facility] [address] [place] [address] Lymphocytes/100 leukocytes i n Blood by Automated countOrdered By: Shaan Sabillon on 08-14-2023 Lymphocytes/100 WBC (Bld) 37.3 % Normal . [facility] Comment on above: Performed By: #### A JOSESITO RAY, CUU #### [address] MCH [Entitic mass] by Automa darvin countOrdered By: Shaan Sabillon on 08-14-2023 MCH (RBC) [Entitic mass] 29.0 pg Normal 24.7-34.3 [facility] Comment on above: Performed By: #### A JOSESITO RAY, CUU #### [address] MCHC Auto (RBC) [Mass/Vol]Or dered By: Shaan Sabillon on 08-14-2023 MCHC (RBC) [Mass/Vol] 33.4 g/dL 32.0-35.0 [facility] MCV [Entitic volume] by Auto mated countOrdered By: Shaan Sabillon on 08-14-2023 MCV (RBC) [Entitic vol] 87.0 fL Normal 80-100 [facility] Comment on above: Performed By: #### A JOSESITO RAY, CUU #### [address] Monocyte distribution width [Entitic volume] in Blood by AutomatedOrdered By: Shaan Sabillon on 08-14-2023 Monocyte distribution width Auto (Bld) [Entitic vol] 16.29 % 0.00-20.00 [facility] Neutrophils [#/volume] in Bl ood by Automated countOrdered By: Shaan Sabillon on 08-14-2023 Neutrophils (Bld) [#/Vol] 3.6 10*3/uL Normal 1.8-7.7 [facility] Comment on above: Performed By: #### A JOSESITO RAY, CUU #### [facility] [address] Nitrite Test strip Ql (U)Ord ered By: Shaan Sabillon on 08-14-2023 Nitrite Ql (U) Negative Negative [facility] No Panel InformationOrdered By: Shaan Sabillon on 08-14-2023 Estimated GFR (CKD-EPI) > 60.0 mL/Min [facility] Creatinine Clearance (Chem 116.71 [facility] Nucleated erythrocytes [Pres ence] in Blood by Automated countOrdered By: Shaan Sabillon on 08-14-2023 Nucleated RBC Auto Ql (Bld) 0.0 /100{WBC} 0-0.5 [facility] Platelet mean volume [Entiti c volume] in Blood by Automated countOrdered By: Shaan Sabillon on 08-14-2023 Platelet mean volume (Bld) [Entitic vol] 9.0 fL Normal 6.3-10.7 [facility] Comment on above: Performed By: #### A JOSESITO RAY, CUU #### [facility] [address] [place] [address] Platelets [#/volume] in Bloo d by Automated countOrdered By: Shaan Sabillon on 08-14-2023 Platelets (Bld) [#/Vol] 281 10*3/uL Normal 150-450 [facility] Comment on above: Performed By: #### A JOSESITO RAY, CUU #### [facility] [address] Potassium [Moles/volume] in Serum or PlasmaOrdered By: Shaan Sabillon on 08-14-2023 Potassium [Moles/Vol] 3.2 mmol/L Low 3.5-5.1 [facility] Comment on above: Performed By: #### A JOSESITO RAY, CUU #### [address] Protein Test strip (U) [Mass /Vol]Ordered By: Shaan Sabillon on 08-14-2023 Protein (U) [Mass/Vol] Negative Negative [facility] Protein [Mass/volume] in Ser um or PlasmaOrdered By: Shaan Sabillon on 08-14-2023 Protein [Mass/Vol] 6.9 g/dL Normal 6.4-8.9 [facility] Comment on above: Performed By: #### A JOSESITO RAY, CUU #### [address] Serum globulin measurement b y calculation (mass/volume)Ordered By: Shaan Sabillon on 08-14-2023 Globulin (S) [Mass/Vol] 2.7 g/dL Normal [facility] Comment on above: Performed By: #### A JOSESITO RAY, CUU #### [address] Serum or plasma albumin/glob ulin mass ratioOrdered By: Shaan Sabillon on 08-14-2023 Albumin/Globulin [Mass ratio] 1.6 {ratio} Normal [facility] Comment on above: Performed By: #### A JOSESITO RAY, CUU #### [address] Serum or plasma anion gap de terminationOrdered By: Shaan Sabillon on 08-14-2023 Anion gap [Moles/Vol] 10.4 mmol/L Normal 6.0-15.0 [facility] Comment on above: Performed By: #### A JOSESITO RAY, CUU #### [address] Serum or plasma non-glucuron idated bilirubin measurement (mass/volume)Ordered By: Shaan Sabillon on 08-14-2023 Bilirubin.indirect [Mass/Vol] 0.2 mg/dL [facility] Sodium [Moles/volume] in Ser um or PlasmaOrdered By: Shaan Sabillon on 08-14-2023 Sodium [Moles/Vol] 139 mmol/L Normal 136-145 [facility] Comment on above: Performed By: #### A DDONUAPLUS, UHCG, CUU #### [address] Specific gravity Test strip (U) [Rel density]Ordered By: Shaan Sabillon on 08-14-2023 Specific gravity (U) [Rel density] 1.026 1.001-1.030 [facility] Urea nitrogen [Mass/volume] in Serum or PlasmaOrdered By: Shaan Sabillon on 08-14-2023 Urea nitrogen [Mass/Vol] 8 mg/dL Normal 7-25 [facility] Comment on above: Performed By: #### A DDONUAPLUS, UHCG, CUU #### [place] [address] [place] Urinalysison 08-14-2023 Bilirubin,Urine Negative Normal Negative [facility] Comment on above: Order Comment: Name Collection Type:: Clean-Voided Midstream Performed By: #### A DDONUAPLUS, UHCG, CUU #### [address] Glucose Ql (U) Normal Normal Normal [facility] Comment on above: Order Comment: Name Collection Type:: Clean-Voided Midstream Performed By: #### A DDONUAPLUS, UHCG, CUU #### [place] [address] [place] Nitrite,Urine Negative Normal Negative [facility] Comment on above: Order Comment: Name Collection Type:: Clean-Voided Midstream Performed By: #### A DDONUAPLUS, UHCG, CUU #### [place] [address] [place] Occult Blood,Urine Negative Normal Negative [facility] Comment on above: Order Comment: Name Collection Type:: Clean-Voided Midstream Result Comment: PERF ORMED BY: [place] [address] PATHOLOGIST MULTINEEDLE SHIRRER BAUTISTA BAKER M.D. Performed By: #### A DDONUAPLUS, UHCG, CUU #### [address] Protein,Urine Negative Normal Negative [facility] Comment on above: Order Comment: Name Collection Type:: Clean-Voided Midstream Performed By: #### A DDONUAPLUS, UHCG, CUU #### [address] Specificy Arjay,Urine 1.026 Normal 1.001-1.030 [facility] Comment on above: Order Comment: Name Collection Type:: Clean-Voided Midstream Performed By: #### A DDONUAPLUS, UHCG, CUU #### [address] Urobilinogen,Urine Normal Normal Normal [facility] Comment on above: Order Comment: Name Collection Type:: Clean-Voided Midstream Performed By: #### A DDONUAPLUS, UHCG, CUU #### [address] Urine appearanceOrdered By: Shaan Sabillon on 08-14-2023 Appearance (U) Clear Normal Clear [facility] Comment on above: Order Comment: Name Collection Type:: Clean-Voided Midstream Performed By: #### A DDONUAPLUS, UHCG, CUU #### [address] Urobilinogen Test strip (U) [Mass/Vol]Ordered By: Shaan Sabillon on 08-14-2023 Urobilinogen (U) [Mass/Vol] Normal mg/dL Normal [facility] pH of Urine by Test stripOrd ered By: Shaan Sabillon on 08-14-2023 pH (U) 7.0 [pH] Normal 5.0-9.0 [facility] Comment on above: Order Comment: Name Collection Type:: Clean-Voided Midstream Performed By: #### A DDONUAPLUS, UHCG, CUU #### [address] [place] [address] [facility] CNPNon 08-12-2023 CNPN Normal [facility] CNOVon 08-09-2023 CNOV Normal [facility] CASE MGT INIT ASSESon 2023 CASE MGT INIT ASSES Normal [facility] CBC panel Auto (Bld)on 08-07 Erythrocyte distribution width (RBC) [Ratio] 13.2 % Normal 11.5-15.0 [facility] Comment on above: Order Comment: Speci men Type: BLOOD SPECIMENOrdering Facility: [facility] Address: [address] [place] [address] Performed By: #### 5 8410-2 ####[facility] LABIA [id number] [place] [address] [place] Hematocrit (Bld) [Volume fraction] 31.1 % Low 36.0-46.0 [facility] Comment on above: Order Comment: Speci men Type: BLOOD SPECIMENOrdering Facility: [facility] Address: [address] [place] [address] Performed By: #### 5 8410-2 ####[facility] [id number] [place] [address] [place] Hemoglobin (Bld) [Mass/Vol] 9.9 g/dL Low 11.5-15.5 [facility] Comment on above: Order Comment: Speci men Type: BLOOD SPECIMENOrdering Facility: [facility] Address: [address] [place] [address] Performed By: #### 5 8410-2 ####[facility] [id number] [place] [address] [place] MCH (RBC) [Entitic mass] 29.4 pg Normal 26.0-34.0 [facility] Comment on above: Order Comment: Speci men Type: BLOOD SPECIMENOrdering Facility: [facility] Address: [address] [place] [address] Performed By: #### 5 8410-2 ####[facility] [id number] [place] [address] [place] MCHC (RBC) [Mass/Vol] 31.8 g/dL Normal 30.5-36.0 [facility] Comment on above: Order Comment: Speci men Type: BLOOD SPECIMENOrdering Facility: [facility] Address: [address] [place] [address] Performed By: #### 5 8410-2 ####[facility] [id number] [place] [address] [place] MCV (RBC) [Entitic vol] 92.3 fL Normal 80.0-100.0 [facility] Comment on above: Order Comment: Speci men Type: BLOOD SPECIMENOrdering Facility: [facility] Address: [address] [place] [address] Performed By: #### 5 8410-2 ####[facility] [id number] [place] [address] [place] Nucleated RBC (Bld) [#/Vol] 10*3/uL Normal <0.01 [facility] Comment on above: Order Comment: Speci men Type: BLOOD SPECIMENOrdering Facility: [facility] Address: [address] [place] [address] Performed By: #### 5 8410-2 ####[facility] [id number] [place] [address] [place] Platelet mean volume (Bld) [Entitic vol] 10.3 fL Normal 9.0-12.7 [facility] Comment on above: Order Comment: Speci men Type: BLOOD SPECIMENOrdering Facility: [facility] Address: [address] [place] [address] Performed By: #### 5 8410-2 ####[facility] [id number] [place] [address] [place] Platelets (Bld) [#/Vol] 267 10*3/uL Normal 150-400 [facility] Comment on above: Order Comment: Speci men Type: BLOOD SPECIMENOrdering Facility: [facility] Address: [address] [place] [address] Performed By: #### 5 8410-2 ####[facility] LABCLIA [id number] [place] [address] [place] RBC (Bld) [#/Vol] 3.37 10*6/uL Low 3.90-5.[address] [facility] Comment on above: Order Comment: Speci men Type: BLOOD SPECIMENOrdering Facility: [facility] Address: [address] [place] [address] Performed By: #### 5 8410-2 ####[facility] LABCLIA [id number] [place] [address] [place] WBC (Bld) [#/Vol] 3.17 10*3/uL Low 3.70-11.[address] [facility] Comment on above: Order Comment: Speci men Type: BLOOD SPECIMENOrdering Facility: [facility] Address: [address] [place] [address] Performed By: #### 5 8410-2 ####[facility] LABCLIA [id number] [place] [address] [place] CNDSon 08-08-2023 CNDS Normal [facility] CRP SerPl-mCncon 08-08-2023 CRP [Mass/Vol] mg/L Normal <0.9 [facility] Comment on above: Order Comment: Speci men Type: BLOOD SPECIMENOrdering Facility: [facility] Address: [address] [place] [address] Performed By: #### 1 988-5, 92075-6, 34281-6 ####[facility] LABCLIA [id number] [place] [address] [place] Magnesium SerPl-mCncon 08-07 Magnesium [Mass/Vol] 2.0 mg/dL Normal 1.7-2.3 [facility] Comment on above: Order Comment: Speci men Type: BLOOD SPECIMENOrdering Facility: [facility] Address: [address] [place] [address] Performed By: #### 1 988-5, 87711-9, 84082-9 ####[facility] LABCLIA [id number] [place] [id number] [place] NUTRITIONon 08-08-2023 NUTRITION Normal [facility] Renal function 2000 panelon 08-08-2023 Albumin [Mass/Vol] 3.4 g/dL Low 3.9-4.9 [facility] Comment on above: Order Comment: Speci men Type: BLOOD SPECIMENOrdering Facility: [facility] Address: [address] [place] [address] Performed By: #### 1 988-5, , 08833-5 ####[facility] LABCLIA [id number] [place] [address] [place] Anion gap [Moles/Vol] 9 mmol/L Normal 8-15 [facility] Comment on above: Order Comment: Speci men Type: BLOOD SPECIMENOrdering Facility: [facility] Address: [address] [place] [address] Performed By: #### 1 988-5, , 45695-5 ####[facility] LABCLIA [id number] [place] [id number] [place] Calcium [Mass/Vol] 8.7 mg/dL Normal 8.5-10.2 [facility] Comment on above: Order Comment: Speci men Type: BLOOD SPECIMENOrdering Facility: [facility] Address: [address] [place] [address] Performed By: #### 1 988-5, , 25789-0 ####[facility] LABCLIA [id number] [place] [address] [place] Chloride [Moles/Vol] 108 mmol/L High 98-107 [facility] Comment on above: Order Comment: Speci men Type: BLOOD SPECIMENOrdering Facility: [facility] Address: [address] [place] [address] Performed By: #### 1 988-5, 45510-7, 24445-4 ####[facility]IA [id number] [place] [address] [place] CO2 [Moles/Vol] 22 mmol/L Normal 22-30 [facility] Comment on above: Order Comment: Speci men Type: BLOOD SPECIMENOrdering Facility: [facility] Address: [address] [place] [address] Performed By: #### 1 988-5, , 74436-2 ####[facility] LABCLIA [id number] [place] [address] [place] Creatinine [Mass/Vol] 0.69 mg/dL Normal 0.58-0.96 [facility] Comment on above: Order Comment: Speci men Type: BLOOD SPECIMENOrdering Facility: [facility] Address: [address] [place] [address] Performed By: #### 1 988-5, 14417-2, 89356-7 ####[facility]IA [id number] [place] [address] [place] Creatinine and Glomerular filtration rate.predicted panel (S/P/Bld) 117 mL/min/1.73m??? Normal >=60 [facility] Comment on above: Order Comment: Speci men Type: BLOOD SPECIMENOrdering Facility: [facility] Address: [address] [place] [address] Result Comment: Jessica mated Glomerular Filtration Rate [...] GFR. Performed By: #### 1 988-5, , ####[facility] LABCLIA [id number] [facility] [address] [address] [place] Glucose [Mass/Vol] 89 mg/dL Normal 74-99 [facility] Comment on above: Order Comment: Geraldo marrero Type: BLOOD SPECIMENOrdering Facility: [facility] Address: [address] [place] [address] Result Comment: The [place] [employer] (ADA) provides guidance for cutoff [...] Standards of Medical Care in Diabetes 2016, [place] [employer]. Diabetes Care. 2016.39(Suppl 1). Performed By: #### 1 988-5, , ####[facility] LABCLIA [id number] [facility] [address] [address] [place] Phosphate [Mass/Vol] 3.9 mg/dL Normal 2.7-4.8 [facility] Comment on above: Order Comment: Geraldo marrero Type: BLOOD SPECIMENOrdering Facility: [facility] Address: [address] [place] [address] Performed By: #### 1 988-5, , ####[facility] LABCLIA [id number] [facility] [address] [address] [place] Potassium [Moles/Vol] 4.1 mmol/L Normal 3.7-5.1 [facility] Comment on above: Order Comment: Speci men Type: BLOOD SPECIMENOrdering Facility: [facility] Address: [address] [place] [address] Performed By: #### 1 988-5, 54278-6, 28772-4 ####[facility] LABCLIA [id number] [place] [address] [place] Sodium [Moles/Vol] 139 mmol/L Normal 136-144 [facility] Comment on above: Order Comment: Speci men Type: BLOOD SPECIMENOrdering Facility: [facility] Address: [address] [place] [address] Performed By: #### 1 988-5, , 06278-5 ####[facility] LABCLIA [id number] [place] [address] [place] Urea nitrogen [Mass/Vol] 7 mg/dL Normal 7-21 [facility] Comment on above: Order Comment: Speci men Type: BLOOD SPECIMENOrdering Facility: [facility] Address: [address] [place] [address] Performed By: #### 1 988-5, , 13249-3 ####[facility] LABIA [id number] [place] [address] [place] CBC W Auto Differential pane l (Bld)on 08-07-2023 Basophils (Bld) [#/Vol] 0.04 10*3/uL Normal <0.11 [facility] Comment on above: Order Comment: Speci men Type: BLOOD SPECIMENOrdering Facility: [facility] Address: [address] [place] [address] Performed By: #### 1 4196-0, 31335-5 ####[facility] LABCLIA [id number] [place] [address] [place] Basophils/100 WBC (Bld) 0.7 % Normal [facility] Comment on above: Order Comment: Speci men Type: BLOOD SPECIMENOrdering Facility: [facility] Address: [address] [place] [address] Performed By: #### 1 4196-0, 78555-6 ####[facility] LABCLIA [id number] [place] [address] [place] Differential cell count method Nom (Bld) Auto Normal [facility] Comment on above: Order Comment: Speci men Type: BLOOD SPECIMENOrdering Facility: [facility] Address: [address] [place] [address] Performed By: #### 1 4196-0, 96678-8 ####[facility] LABCLIA [id number] [place] [address] [place] Eosinophils (Bld) [#/Vol] 0.10 10*3/uL Normal <0.46 [facility] Comment on above: Order Comment: Speci men Type: BLOOD SPECIMENOrdering Facility: [facility] Address: [address] [place] [address] Performed By: #### 1 4196-0, 89465-3 ####[facility] LABCLIA [id number] [place] [address] [place] Eosinophils/100 WBC (Bld) 1.8 % Normal [facility] Comment on above: Order Comment: Speci men Type: BLOOD SPECIMENOrdering Facility: [facility] Address: [address] [place] [address] Performed By: #### 1 4196-0, 96355-8 ####[facility] LABCLIA [id number] [place] [address] [place] Erythrocyte distribution width (RBC) [Ratio] 12.6 % Normal 11.5-15.0 [facility] Comment on above: Order Comment: Speci men Type: BLOOD SPECIMENOrdering Facility: [facility] Address: [address] [place] [address] Performed By: #### 1 4196-0, 02108-5 ####[facility] LABCLIA [id number] [place] [address] [place] Hematocrit (Bld) [Volume fraction] 30.4 % Low 36.0-46.0 [facility] Comment on above: Order Comment: Speci men Type: BLOOD SPECIMENOrdering Facility: [facility] Address: [address] [place] [address] Performed By: #### 1 4196-0, 45209-1 ####[facility] LABCLIA [id number] [place] [address] [place] Hemoglobin (Bld) [Mass/Vol] 10.1 g/dL Low 11.5-15.5 [facility] Comment on above: Order Comment: Speci men Type: BLOOD SPECIMENOrdering Facility: [facility] Address: [address] [place] [address] Performed By: #### 1 4196-0, 50392-1 ####[facility] LABCLIA [id number] [place] [address] [place] Immature granulocytes (Bld) [#/Vol] 10*3/uL Normal <0.10 [facility] Comment on above: Order Comment: Speci men Type: BLOOD SPECIMENOrdering Facility: [facility] Address: [address] [place] [address] Performed By: #### 1 4196-0, ####[facility] LABCLIA [id number] [place] [address] [place] Immature granulocytes/100 WBC (Bld) 0.2 % Normal [facility] Comment on above: Order Comment: Speci men Type: BLOOD SPECIMENOrdering Facility: [facility] Address: [address] [place] [address] Performed By: #### 1 4196-0, 62315-7 ####[facility] LABCLIA [id number] [place] [address] [place] Lymphocytes (Bld) [#/Vol] 1.13 10*3/uL Normal 1.00-4.00 [facility] Comment on above: Order Comment: Speci men Type: BLOOD SPECIMENOrdering Facility: [facility] Address: [address] [place] [address] Performed By: #### 1 4196-0, 56761-8 ####[facility] LABIA [id number] [place] [address] [place] Lymphocytes/100 WBC (Bld) 20.8 % Normal [facility] Comment on above: Order Comment: Speci men Type: BLOOD SPECIMENOrdering Facility: [facility] Address: [address] [place] [address] Performed By: #### 1 4196-0, 27393-3 ####[facility] LABIA [id number] [place] [address] [place] MCH (RBC) [Entitic mass] 29.5 pg Normal 26.0-34.0 [facility] Comment on above: Order Comment: Speci men Type: BLOOD SPECIMENOrdering Facility: [facility] Address: [address] [place] [address] Performed By: #### 1 4196-0, 79431-3 ####[facility] LABIA [id number] [place] [address] [place] MCHC (RBC) [Mass/Vol] 33.2 g/dL Normal 30.5-36.0 [facility] Comment on above: Order Comment: Speci men Type: BLOOD SPECIMENOrdering Facility: [facility] Address: [address] [place] [address] Performed By: #### 1 4196-0, 61341-6 ####[facility] LABIA [id number] [place] [address] [place] MCV (RBC) [Entitic vol] 88.9 fL Normal 80.0-100.0 [facility] Comment on above: Order Comment: Speci men Type: BLOOD SPECIMENOrdering Facility: [facility] Address: [address] [place] [address] Performed By: #### 1 4196-0, 72720-4 ####[facility] LABCLIA [id number] [place] [address] [place] Monocytes (Bld) [#/Vol] 0.38 10*3/uL Normal <0.87 [facility] Comment on above: Order Comment: Speci men Type: BLOOD SPECIMENOrdering Facility: [facility] Address: [address] [place] [address] Performed By: #### 1 4196-0, 50415-3 ####[facility] LABCLIA [id number] [place] [address] [place] Monocytes/100 WBC (Bld) 7.0 % Normal [facility] Comment on above: Order Comment: Speci men Type: BLOOD SPECIMENOrdering Facility: [facility] Address: [address] [place] [address] Performed By: #### 1 4196-0, 24595-1 ####[facility] LABCLIA [id number] [place] [address] [place] Neutrophils (Bld) [#/Vol] 3.78 10*3/uL Normal 1.45-7.50 [facility] Comment on above: Order Comment: Speci men Type: BLOOD SPECIMENOrdering Facility: [facility] Address: [address] [place] [address] Performed By: #### 1 4196-0, 20439-5 ####[facility] LABCLIA [id number] [place] [address] [place] Neutrophils/100 WBC (Bld) 69.5 % Normal [facility] Comment on above: Order Comment: Speci men Type: BLOOD SPECIMENOrdering Facility: [facility] Address: [address] [place] [address] Performed By: #### 1 4196-0, 43380-5 ####[facility] LAB[facility] [id number] [place] [address] [place] Nucleated RBC (Bld) [#/Vol] 10*3/uL Normal <0.01 [facility] Comment on above: Order Comment: Speci men Type: BLOOD SPECIMENOrdering Facility: [facility] Address: [address] [place] [address] Performed By: #### 1 4196-0, 64716-8 ####[facility] LAB[facility] [id number] [place] [address] [place] Nucleated RBC/100 WBC (Bld) [Ratio] 0.0 /100 WBC Normal [facility] Comment on above: Order Comment: Speci men Type: BLOOD SPECIMENOrdering Facility: [facility] Address: [address] [place] [address] Performed By: #### 1 4196-0, 29909-5 ####[facility] [id number] [place] [address] [place] Platelet mean volume (Bld) [Entitic vol] 10.0 fL Normal 9.0-12.7 [facility] Comment on above: Order Comment: Speci men Type: BLOOD SPECIMENOrdering Facility: [facility] Address: [address] [place] [address] Performed By: #### 1 4196-0, 82289-9 ####[facility] LABIA [id number] [place] [address] [place] Platelets (Bld) [#/Vol] 271 10*3/uL Normal 150-400 [facility] Comment on above: Order Comment: Speci men Type: BLOOD SPECIMENOrdering Facility: [facility] Address: [address] [place] [address] Performed By: #### 1 4196-0, 50243-0 ####[facility] LABCLIA [id number] [address] [address] [place] RBC (Bld) [#/Vol] 3.42 10*6/uL Low 3.90-5.[address] [facility] Comment on above: Order Comment: Speci men Type: BLOOD SPECIMENOrdering Facility: [facility] Address: [address] [place] [address] Performed By: #### 1 4196-0, 40425-6 ####[facility] LABIA [id number] [place] [id number] [place] WBC (Bld) [#/Vol] 5.44 10*3/uL Normal 3.70-11.[address] [facility] Comment on above: Order Comment: Speci men Type: BLOOD SPECIMENOrdering Facility: [facility] Address: [address] [place] [address] Performed By: #### 1 4196-0, 93943-5 ####[facility] LABIA [id number] [place] [address] [place] Comprehensive metabolic 2000 panelon 08-07-2023 Albumin [Mass/Vol] 3.7 g/dL Low 3.9-4.9 [facility] Comment on above: Order Comment: Speci men Type: BLOOD SPECIMENOrdering Facility: [facility] Address: [address] [place] [address] Performed By: #### 1 9123-9, 3040-3, 16257-1 ####[facility] LABIA [id number] [place] [id number] [place] ALP [Catalytic activity/Vol] 58 U/L Normal 34-123 [facility] Comment on above: Order Comment: Speci men Type: BLOOD SPECIMENOrdering Facility: [facility] Address: [address] [place] [address] Performed By: #### 1 9123-9, 3039-3, 98172-5 ####[facility] LABCLIA [id number] [address] [address] [place] ALT [Catalytic activity/Vol] 16 U/L Normal 7-38 [facility] Comment on above: Order Comment: Speci men Type: BLOOD SPECIMENOrdering Facility: [facility] Address: [address] [place] [address] Performed By: #### 1 9123-9, 3, ####[facility] LABCLIA [id number] [place] [id number] [place] Anion gap [Moles/Vol] 8 mmol/L Normal 8-15 [facility] Comment on above: Order Comment: Speci men Type: BLOOD SPECIMENOrdering Facility: [facility] Address: [address] [place] [address] Performed By: #### 1 9123-9, 3, ####[facility] LABCLIA [id number] [place] [address] [place] AST [Catalytic activity/Vol] 18 U/L Normal 13-35 [facility] Comment on above: Order Comment: Speci men Type: BLOOD SPECIMENOrdering Facility: [facility] Address: [address] [place] [address] Performed By: #### 1 9123-9, 3, ####[facility] LABCLIA [id number] [place] [id number] [place] Bilirubin [Mass/Vol] 0.2 mg/dL Normal 0.2-1.3 [facility] Comment on above: Order Comment: Speci men Type: BLOOD SPECIMENOrdering Facility: [facility] Address: [address] [place] [address] Performed By: #### 1 9123-9, 3, 95185-8 ####[facility] LABCLIA [id number] [place] [address] [place] Calcium [Mass/Vol] 8.0 mg/dL Low 8.5-10.2 [facility] Comment on above: Order Comment: Speci men Type: BLOOD SPECIMENOrdering Facility: [facility] Address: [address] [place] [address] Performed By: #### 1 9123-9, 3040-3, 72342-1 ####[facility] LABCLIA [id number] [place] [address] [place] Chloride [Moles/Vol] 108 mmol/L High 98-107 [facility] Comment on above: Order Comment: Speci men Type: BLOOD SPECIMENOrdering Facility: [facility] Address: [address] [place] [address] Performed By: #### 1 9123-9, 3039-3, 88411-1 ####[facility] LABCLIA [id number] [place] [address] [place] CO2 [Moles/Vol] 23 mmol/L Normal 22-30 [facility] Comment on above: Order Comment: Speci men Type: BLOOD SPECIMENOrdering Facility: [facility] Address: [address] [place] [address] Performed By: #### 1 9123-9, 3039-3, 03181-9 ####[facility] LABCLIA [id number] [place] [address] [place] Creatinine [Mass/Vol] 0.60 mg/dL Normal 0.58-0.96 [facility] Comment on above: Order Comment: Speci men Type: BLOOD SPECIMENOrdering Facility: [facility] Address: [address] [place] [address] Performed By: #### 1 9123-9, 3040-3, 70550-1 ####[facility] LABCLIA [id number] [place] [address] [place] Creatinine and Glomerular filtration rate.predicted panel (S/P/Bld) 121 mL/min/1.73m??? Normal >=60 [facility] Comment on above: Order Comment: Geraldo marrero Type: BLOOD SPECIMENOrdering Facility: [facility] Address: [address] [place] [address] Result Comment: Jessica mated Glomerular Filtration Rate [...] GFR. Performed By: #### 1 9123-9, 3040-3, 18849-6 ####[facility] LABIA [id number] [place] [address] [place] Glucose [Mass/Vol] 89 mg/dL Normal 74-99 [facility] Comment on above: Order Comment: Geraldo marrero Type: BLOOD SPECIMENOrdering Facility: [facility] Address: [address] [place] [address] Result Comment: The [place] [employer] (ADA) provides guidance for cutoff [...] Standards of Medical Care in Diabetes 2016, [place] [employer]. Diabetes Care. 2016.39(Suppl 1). Performed By: #### 1 9123-9, 3040-3, 00453-4 ####[facility] LABIA [id number] [place] [address] [place] Potassium [Moles/Vol] 3.6 mmol/L Low 3.7-5.1 [facility] Comment on above: Order Comment: Speci men Type: BLOOD SPECIMENOrdering Facility: [facility] Address: [address] [place] [address] Performed By: #### 1 9123-9, 3039-3, ####[facility] LABCLIA [id number] [facility] [address] [address] [place] Protein [Mass/Vol] 5.8 g/dL Low 6.3-8.0 [facility] Comment on above: Order Comment: Speci men Type: BLOOD SPECIMENOrdering Facility: [facility] Address: [address] [place], [place] [address] Performed By: #### 1 9123-9, 3, ####[facility] LABCLIA [id number] [place] [id number] [place] Sodium [Moles/Vol] 139 mmol/L Normal 136-144 [facility] Comment on above: Order Comment: Speci men Type: BLOOD SPECIMENOrdering Facility: [facility] Address: [address] [place] [address] Performed By: #### 1 9123-9, 3, ####[facility] LABCLIA [id number] [place] [id number] [place] Urea nitrogen [Mass/Vol] 10 mg/dL Normal 7-21 [facility] Comment on above: Order Comment: Speci men Type: BLOOD SPECIMENOrdering Facility: [facility] Address: [address] [place] [address] Performed By: #### 1 9123-9, 3, ####[facility] LABCLIA [id number] [facility] [address] [address] [place] [id number] 08-07-2023 ECG01 Normal [facility] ED NOTEon 08-07-2023 ED NOTE HNO ID: [id number] Author: PASTORA MADERA RN Service: ? Author Type: Registered Nurse Type: ED Notes Filed: 08/07/2023 17:39 Note Text: Report given to H80 Normal [facility] ED NOTE HNO ID: [id number] Author: PASTORA MADERA RN Service: ? Author Type: Registered Nurse Type: ED Notes Filed: 08/07/2023 17:07 Note Text: Report attempted x1. Call back # given Normal [facility] ED NOTE HNO ID: [id number] Author: ESTEFANI WHITE CT Service: Emergency Medicine Author Type: [employer] Department Chair Type: ED Notes Filed: 08/07/2023 09:32 Note Text: EKG complete Normal [facility] ED PROV NOTEon 08-07-2023 ED PROV NOTE Normal [facility] HISTORY PHYSICALon HISTORY PHYSICAL Normal [facility] Lactate (Bld) [Moles/Vol]on 08-07-2023 Lactate [Moles/Vol] 0.8 mmol/L Normal 0.5-2.[address] [facility] Comment on above: Order Comment: Speci men Type: BLOOD SPECIMENOrdering Facility: [facility] Address: [address] [place] [address] Performed By: #### 3 2693-4 ####[facility] LABIA [id number] [place] [address] [place] Lipase SerPl-cCncon 08-07-19 24 Lipase [Catalytic activity/Vol] 45 U/L Normal 16-61 [facility] Comment on above: Order Comment: Speci men Type: BLOOD SPECIMENOrdering Facility: [facility] Address: [address] [place] [address] Performed By: #### 1 9123-9, 3040-3, 17503-6 ####[facility] LABCLIA [id number] [place] [address] [place] Magnesium SerPl-mCncon 08-06 Magnesium [Mass/Vol] 1.9 mg/dL Normal 1.7-2.3 [facility] Comment on above: Order Comment: Speci men Type: BLOOD SPECIMENOrdering Facility: [facility] Address: [address] [place] [address] Performed By: #### 1 9123-9, 3040-3, 79941-1 ####[facility] LABCLIA [id number] [place] [address] [place] Retics #on 08-07-2023 Reticulocytes (Bld) [#/Vol] 0.02848 10*3/uL Normal 0.018-0.100 [facility] Comment on above: Order Comment: Speci men Type: BLOOD SPECIMENOrdering Facility: [facility] Address: [address] [place] [address] Performed By: #### 1 4196-0, 19440-0 ####[facility] LABCLIA [id number] [place] [address] [place] Reticulocytes (Bld) [#/Vol]o n 08-07-2023 Reticulocytes/100 RBC (Bld) 1.6 % Normal 0.4-2.0 [facility] Comment on above: Order Comment: Speci men Type: BLOOD SPECIMENOrdering Facility: [facility] Address: [address] [place] [address] Performed By: #### 1 4196-0, 20456-2 ####[facility] LABCLIA [id number] [place] [address] [place] STREPTOCOCCUS PNEUMONIAE ANT IGEN URINEon 08-07-2023 STREPTOCOCCUS PNEUMONIAE ANTIGEN URINE Normal [facility] Comment on above: Performed By: #### S PNAG ####[facility] LABCLIA [id number] [place] [address] [place] XR CHEST 2V FRONTAL/LATon XR CHEST 2V FRONTAL/LAT Normal [facility] CASE MANAGEMon 08-06-2023 CASE MANAGEM Normal [facility] CNDSon 08-06-2023 CNDS Normal [facility] CONSULT PROGon 08-06-2023 CONSULT PROG Normal [facility] Magnesium SerPl-mCncon 08-05 Magnesium [Mass/Vol] 1.8 mg/dL Normal 1.7-2.3 [facility] Comment on above: Order Comment: Speci men Type: BLOOD SPECIMENOrdering Facility: [facility] Address: [address] [place] [address] Performed By: #### 1 9123-9, 13939-6 ####[facility] [id number] [place] [address] [place] NURSING PROGon 08-06-2023 NURSING PROG Normal [facility] NUTRITIONon 08-06-2023 NUTRITION Normal [facility] Renal function 2000 panelon 08-06-2023 Albumin [Mass/Vol] 3.5 g/dL Low 3.9-4.9 [facility] Comment on above: Order Comment: Speci men Type: BLOOD SPECIMENOrdering Facility: [facility] Address: [address] [place] [address] Performed By: #### 1 9123-9, 36786-4 ####[facility] [id number] [place] [address] [place] Anion gap [Moles/Vol] 10 mmol/L Normal 8-15 [facility] Comment on above: Order Comment: Speci men Type: BLOOD SPECIMENOrdering Facility: [facility] Address: [address] [place], [place] [address] Performed By: #### 1 9123-9, 59029-8 ####[facility] [id number] [place] [address] [place] Calcium [Mass/Vol] 8.2 mg/dL Low 8.5-10.2 [facility] Comment on above: Order Comment: Speci men Type: BLOOD SPECIMENOrdering Facility: [facility] Address: [address] [place] [address] Performed By: #### 1 9123-9, 59823-1 ####[facility]ORATORYCLIA [id number] [place] [address] [place] Chloride [Moles/Vol] 106 mmol/L Normal 98-107 [facility] Comment on above: Order Comment: Speci men Type: BLOOD SPECIMENOrdering Facility: [facility] Address: [address] [place] [address] Performed By: #### 1 9123-9, 14883-1 ####[facility]ATORYCLIA [id number] [place] [address] [place] CO2 [Moles/Vol] 23 mmol/L Normal 22-30 [facility] Comment on above: Order Comment: Speci men Type: BLOOD SPECIMENOrdering Facility: [facility] Address: [address] [place] [address] Performed By: #### 1 9123-9, 30604-0 ####[facility]ITALIA [id number] [place] [address] [place] Creatinine [Mass/Vol] 0.71 mg/dL Normal 0.58-0.96 [facility] Comment on above: Order Comment: Speci men Type: BLOOD SPECIMENOrdering Facility: [facility] Address: [address] [place] [address] Performed By: #### 1 9123-9, 38967-3 ####[facility]ORYIA [id number] [place] [address] [place] Creatinine and Glomerular filtration rate.predicted panel (S/P/Bld) 115 mL/min/1.73m??? Normal >=60 [facility] Comment on above: Order Comment: Speci men Type: BLOOD SPECIMENOrdering Facility: [facility] Address: [address] [place] [address] Result Comment: Jessica mated Glomerular Filtration Rate [...] actual GFR. Performed By: #### 1 9123-9, 29409-5 ####[facility]ITALCLIA [id number] [place] [address] [place] Glucose [Mass/Vol] 106 mg/dL High 74-99 [facility] ospital Comment on above: Order Comment: Geraldo marrero Type: BLOOD SPECIMENOrdering Facility: [facility] Address: [address] [place] [address] Result Comment: The [place] Diabetes Association (ADA) provides guidance for cutoff [...] Standards of Medical Care in Diabetes 2016, [place] [employer]. Diabetes Care. 2016.39(Suppl 1). Performed By: #### 1 9123-9, 38327-5 ####[facility]ITALIA [id number] [place] [address] [place] Phosphate [Mass/Vol] 4.2 mg/dL Normal 2.7-4.8 [facility] Comment on above: Order Comment: Geraldo marrero Type: BLOOD SPECIMENOrdering Facility: [facility] Address: [address] [place] [address] Performed By: #### 1 9123-9, 60055-8 ####[facility]ORATORYIA [id number] [place] [address] [place] Potassium [Moles/Vol] 3.8 mmol/L Normal 3.7-5.1 [facility] Comment on above: Order Comment: Geraldo marrero Type: BLOOD SPECIMENOrdering Facility: [facility] Address: [address] [place] [address] Performed By: #### 1 9123-9, 51545-6 ####[facility]ORATORYCLIA [id number] [place] [address] [place] Sodium [Moles/Vol] 139 mmol/L Normal 136-144 [facility]ital Comment on above: Order Comment: Speci men Type: BLOOD SPECIMENOrdering Facility: [facility] Address: [address] [place] [address] Performed By: #### 1 9123-9, 12790-8 ####[facility]ORATORYCLIA [id number] [place] [address] [place] Urea nitrogen [Mass/Vol] 12 mg/dL Normal 7- [facility] Comment on above: Order Comment: Speci men Type: BLOOD SPECIMENOrdering Facility: [facility] Address: [address] [place] [address] Performed By: #### 1 9123-9, 52829-6 ####[facility]ORATORYCLIA [id number] [place] [address] [place] ALLIED HEALTHon 08-05-2023 ALLIED HEALTH Normal [facility] 2023 CASE MGT INIT [facility] CONSULTon 08-05-2023 CONSULT Normal [facility] NUTRITIONon 08-05-2023 NUTRITION [facility] CBC W Auto Differential pane l (Bld)on 08-04-2023 Basophils (Bld) [#/Vol] 0.04 10*3/uL Normal <0.11 [facility] Comment on above: Order Comment: Speci men Type: BLOOD SPECIMENOrdering Facility: [facility] Address: [address] [place] [address] Performed By: #### 5 7021-8 ####[facility]ORATORYCLIA [id number] [place] [address] [place] Basophils/100 WBC (Bld) 0.5 % Normal [facility] Comment on above: Order Comment: Speci men Type: BLOOD SPECIMENOrdering Facility: [facility] Address: [address] [place] [address] Performed By: #### 5 7021-8 ####[facility]ORATORYCLIA [id number] [facility] [id number] [place] Differential cell count method Nom (Bld) Auto Normal [facility] Comment on above: Order Comment: Speci men Type: BLOOD SPECIMENOrdering Facility: [facility] Address: [address] [place] [address] Performed By: #### 5 7021-8 ####[facility]ORATORYCLIA [id number] [place] [address] [place] Eosinophils (Bld) [#/Vol] 0.05 10*3/uL Normal <0.46 [facility] Comment on above: Order Comment: Speci men Type: BLOOD SPECIMENOrdering Facility: [facility] Address: [address] [place] [address] Performed By: #### 5 7021-8 ####[facility]ORATORYCLIA [id number] [place] [address] [place] Eosinophils/100 WBC (Bld) 0.6 % Normal [facility] Comment on above: Order Comment: Speci men Type: BLOOD SPECIMENOrdering Facility: [facility] Address: [address] [place] [address] Performed By: #### 5 7021-8 ####[facility]ORATORYIA [id number] [facility] [id number] [place] Erythrocyte distribution width (RBC) [Ratio] 12.8 % Normal 11.5-15.0 [facility] Comment on above: Order Comment: Speci men Type: BLOOD SPECIMENOrdering Facility: [facility] Address: [address] [place] [address] Performed By: #### 5 7021-8 ####[facility]ATORYIA [id number] [place] [address] [place] Hematocrit (Bld) [Volume fraction] 36.2 % Normal 36.0-46.0 [facility] Comment on above: Order Comment: Speci men Type: BLOOD SPECIMENOrdering Facility: [facility] Address: [address] [place] [address] Performed By: #### 5 7021-8 ####[facility]ORATORYCLIA [id number] [place] [address] [place] Hemoglobin (Bld) [Mass/Vol] 12.0 g/dL Normal 11.5-15.5 [facility] Comment on above: Order Comment: Speci men Type: BLOOD SPECIMENOrdering Facility: [facility] Address: [address] [place] [address] Performed By: #### 5 7021-8 ####[facility]ITALIA [id number] [place] [address] [place] Immature granulocytes (Bld) [#/Vol] 10*3/uL Normal <0.10 [facility] Comment on above: Order Comment: Speci men Type: BLOOD SPECIMENOrdering Facility: [facility] Address: [address] [place] [address] Performed By: #### 5 7021-8 ####[facility]ITALIA [id number] [place] [address] [place] Immature granulocytes/100 WBC (Bld) 0.2 % Normal [facility] Comment on above: Order Comment: Speci men Type: BLOOD SPECIMENOrdering Facility: [facility] Address: [address] [place] [address] Performed By: #### 5 7021-8 ####[facility]ORATORYCLIA [id number] [place] [address] [place] Lymphocytes (Bld) [#/Vol] 1.30 10*3/uL Normal 1.00-4.00 [facility] Comment on above: Order Comment: Speci men Type: BLOOD SPECIMENOrdering Facility: [facility] Address: [address] [place] [address] Performed By: #### 5 7021-8 ####[facility]ORATORYCLIA [id number] [place] [address] [place] Lymphocytes/100 WBC (Bld) 14.9 % Normal [facility] Comment on above: Order Comment: Speci men Type: BLOOD SPECIMENOrdering Facility: [facility] Address: [address] [place] [address] Performed By: #### 5 7021-8 ####[facility]ORATORYCLIA [id number] [place] [address] [place] MCH (RBC) [Entitic mass] 30.1 pg Normal 26.0-34.0 [facility] Comment on above: Order Comment: Speci men Type: BLOOD SPECIMENOrdering Facility: [facility] Address: [address] [place] [address] Performed By: #### 5 7021-8 ####[facility]ITALIA [id number] [place] [address] [place] MCHC (RBC) [Mass/Vol] 33.1 g/dL Normal 30.5-36.0 [facility] Comment on above: Order Comment: Speci men Type: BLOOD SPECIMENOrdering Facility: [facility] Address: [address] [place] [address] Performed By: #### 5 7021-8 ####[facility]ITALIA [id number] [address] [place] MCV (RBC) [Entitic vol] 90.7 fL Normal 80.0-100.0 [facility] Comment on above: Order Comment: Speci men Type: BLOOD SPECIMENOrdering Facility: [facility] Address: [address] [place] [address] Performed By: #### 5 7021-8 ####[facility]ORATORYIA [id number] [place] [address] [place] Monocytes (Bld) [#/Vol] 0.39 10*3/uL Normal <0.87 [facility] Comment on above: Order Comment: Speci men Type: BLOOD SPECIMENOrdering Facility: [facility] Address: [address] [place] [address] Performed By: #### 5 7021-8 ####[facility]ORATORYCLIA [id number] [place] [address] [place] Monocytes/100 WBC (Bld) 4.5 % Normal [facility] Comment on above: Order Comment: Speci men Type: BLOOD SPECIMENOrdering Facility: [facility] Address: [address] [place] [address] Performed By: #### 5 7021-8 ####[facility]ORYIA [id number] [place] [address] [place] Neutrophils (Bld) [#/Vol] 6.91 10*3/uL Normal 1.45-7.50 [facility] Comment on above: Order Comment: Speci men Type: BLOOD SPECIMENOrdering Facility: [facility] Address: [address] [place] [address] Performed By: #### 5 7021-8 ####[facility]ITALIA [id number] [place] [id number] [place] Neutrophils/100 WBC (Bld) 79.3 % Normal [facility] Comment on above: Order Comment: Speci men Type: BLOOD SPECIMENOrdering Facility: [facility] Address: [address] [place] [address] Performed By: #### 5 7021-8 ####[facility]ORYIA [id number] [place] [address] [place] Nucleated RBC (Bld) [#/Vol] 10*3/uL Normal <0.01 [facility] Comment on above: Order Comment: Speci men Type: BLOOD SPECIMENOrdering Facility: [facility] Address: [address] [place] [address] Performed By: #### 5 7021-8 ####[facility]ORYIA [id number] [place] [address] [place] Nucleated RBC/100 WBC (Bld) [Ratio] 0.0 /100 WBC Normal [facility] Comment on above: Order Comment: Speci men Type: BLOOD SPECIMENOrdering Facility: [facility] Address: [address] [place] [address] Performed By: #### 5 7021-8 ####[facility]IA [id number] [place] [address] [place] Platelet mean volume (Bld) [Entitic vol] 10.5 fL Normal 9.0-12.7 [facility] Comment on above: Order Comment: Speci men Type: BLOOD SPECIMENOrdering Facility: [facility] Address: [address] [place] [address] Performed By: #### 5 7021-8 ####[facility]ITALIA [id number] [place] [address] [place] Platelets (Bld) [#/Vol] 328 10*3/uL Normal 150-400 [facility] Comment on above: Order Comment: Speci men Type: BLOOD SPECIMENOrdering Facility: [facility] Address: [address] [place] [address] Performed By: #### 5 7021-8 ####[facility]IA [id number] [place] [address] [place] RBC (Bld) [#/Vol] 3.99 10*6/uL Normal 3.90-5.20 [facility] Comment on above: Order Comment: Speci men Type: BLOOD SPECIMENOrdering Facility: [facility] Address: [address] [place] [address] Performed By: #### 5 7021-8 ####[facility]ORYIA [id number] [place] [address] [place] WBC (Bld) [#/Vol] 8.71 10*3/uL Normal 3.70-11.00 [facility] Comment on above: Order Comment: Speci men Type: BLOOD SPECIMENOrdering Facility: [facility] Address: [address] [place] [address] Performed By: #### 5 7021-8 ####[facility]ORYIA [id number] [place] [address] [place] CNOVon 08-04-2023 CNOV Normal [facility] CNPNon 08-04-2023 CNPN Normal [facility] CONSULTon 08-04-2023 CONSULT Normal [facility] CT ABD/PEL W IVCONon 024 CT ABD/PEL W IVCON Normal [facility] BRAIN WO IVCONon 08-04-[address] BRAIN WO IVCON Normal [facility] Comprehensive metabolic 2000 panelon 08-04-2023 Albumin [Mass/Vol] 3.8 g/dL Low 3.9-4.9 [facility] Comment on above: Order Comment: Speci men Type: BLOOD SPECIMENOrdering Facility: [facility] Address: [address] [place] [address] Performed By: #### 2 4323-8, 69913-2, 0-3 ####[facility]ATORYCLIA [id number] [place] [address] [place] ALP [Catalytic activity/Vol] 76 U/L Normal 34-123 [facility] Comment on above: Order Comment: Speci men Type: BLOOD SPECIMENOrdering Facility: [facility] Address: [address] [place] [address] Performed By: #### 2 4323-8, , 0-3 ####[facility]ATORYCLIA [id number] [place] [address] [place] ALT [Catalytic activity/Vol] Normal [facility] Comment on above: Order Comment: Speci men Type: BLOOD SPECIMENOrdering Facility: [facility] Address: [address] [place] [address] Result Comment: Unab le to assay due to interference from hemolysis. Suggest reorder as clinically indicated. Performed By: #### 2 4323-8, , 0-3 ####[facility]ATORYCLIA [id number] [place] [address] [place] Anion gap [Moles/Vol] 10 mmol/L Normal 8-15 [facility] Comment on above: Order Comment: Speci men Type: BLOOD SPECIMENOrdering Facility: [facility] Address: [address] [place] [address] Performed By: #### 2 4323-8, , 3039-3 ####[facility]IA [id number] [place] [address] [place] AST [Catalytic activity/Vol] Normal [facility] Comment on above: Order Comment: Speci men Type: BLOOD SPECIMENOrdering Facility: [facility] Address: [address] [place] [address] Result Comment: Unab le to assay due to interference from hemolysis. Suggest reorder as clinically indicated. Performed By: #### 2 4323-8, , 3 ####[facility]IA [id number] [place] [address] [place] Bilirubin [Mass/Vol] 0.3 mg/dL Normal 0.2-1.3 [facility] Comment on above: Order Comment: Speci men Type: BLOOD SPECIMENOrdering Facility: [facility] Address: [address] [place] [address] Performed By: #### 2 4323-8, , 3 ####[facility]IA [id number] [place] [address] [place] Calcium [Mass/Vol] 8.7 mg/dL Normal 8.5-10.2 [facility] ospital Comment on above: Order Comment: Speci men Type: BLOOD SPECIMENOrdering Facility: [facility] Address: [address] [place] [address] Performed By: #### 2 4323-8, , 3039-3 ####[facility]ORYIA [id number] [place] [address] [place] Chloride [Moles/Vol] 106 mmol/L Normal 98-107 [facility] Comment on above: Order Comment: Speci men Type: BLOOD SPECIMENOrdering Facility: [facility] Address: [address] [place] [address] Performed By: #### 2 4323-8, 34511-1, 0-3 ####[facility]ATORYCLIA [id number] [place] [address] [place] CO2 [Moles/Vol] 23 mmol/L Normal 22-30 [facility] Comment on above: Order Comment: Speci men Type: BLOOD SPECIMENOrdering Facility: [facility] Address: [address] [place] [address] Performed By: #### 2 4323-8, , 3039-3 ####[facility]ATORYCLIA [id number] [place] [address] [place] Creatinine [Mass/Vol] 0.71 mg/dL Normal 0.58-0.96 [facility] Comment on above: Order Comment: Speci men Type: BLOOD SPECIMENOrdering Facility: [facility] Address: [address] [place] [address] Performed By: #### 2 4323-8, , 3 ####[facility]IA [id number] [place] [address] [place] Creatinine and Glomerular filtration rate.predicted panel (S/P/Bld) 115 mL/min/1.73m??? Normal >=60 [facility] l Comment on above: Order Comment: Speci [facility] Type: BLOOD SPECIMENOrdering Facility: [facility] Address: [address] [place] [address] Result Comment: Jessica mated Glomerular Filtration Rate [...] actual GFR. Performed By: #### 2 4323-8, 67164-2, 0-3 ####[facility]ATORYCLIA [id number] [place] [address] [place] Glucose [Mass/Vol] 82 mg/dL Normal 74-99 [facility] Comment on above: Order Comment: Speci men Type: BLOOD SPECIMENOrdering Facility: [facility] Address: [address] [place] [address] Result Comment: The [place] Diabetes Association (ADA) provides guidance for cutoff [...] Standards of Medical Care in Diabetes 2016, [place] [employer]. Diabetes Care. 2016.39(Suppl 1). Performed By: #### 2 4323-8, , 0-3 ####[facility]ATORYCLIA [id number] [place] [address] [place] Potassium [Moles/Vol] 4.3 mmol/L Normal 3.7-5.1 [facility] Comment on above: Order Comment: Geraldo marrero Type: BLOOD SPECIMENOrdering Facility: [facility] Address: [address] [place] [address] Performed By: #### 2 4323-8, , 0-3 ####[facility]ATORYCLIA [id number] [place] [address] [place] Protein [Mass/Vol] 6.8 g/dL Normal 6.3-8.0 [facility] Comment on above: Order Comment: Lyssai men Type: BLOOD SPECIMENOrdering Facility: [facility] Address: [address] [place] [address] Performed By: #### 2 4323-8, 18085-6, 0-3 ####[facility]ATORYCLIA [id number] [place] [address] [place] Sodium [Moles/Vol] 139 mmol/L Normal 136-144 [facility] Comment on above: Order Comment: Speci men Type: BLOOD SPECIMENOrdering Facility: [facility] Address: [address] [place] [address] Performed By: #### 2 4323-8, 49920-7, 0-3 ####[facility]ATORYCLIA [id number] [place] [address] [place] [facility] Urea nitrogen [Mass/Vol] 6 mg/dL Low - [facility] Comment on above: Order Comment: Speci men Type: BLOOD SPECIMENOrdering Facility: [facility] Address: [place] [address] Performed By: #### 2 4323-8, 62161-8, 0-3 ####[facility]ATORYCLIA [id number] [place] [address] [facility] ECG COMPLETEon 08-04-2023 ECG COMPLETE Normal [facility] ED NOTEon 08-04-2023 ED NOTE HNO ID: [id number] Author: ANAM NAILS RN Service: Emergency Medicine Author Type: Registered Nurse Type: ED Notes Filed: 08/04/2023 14:44 Note Text: Pt remains unable to provide urine sample at this time. [facility] ED NOTE HNO ID: [id number] Author: ANAM NAILS RN Service: Emergency Medicine Author Type: Registered Nurse Type: ED Notes Filed: 08/04/2023 14:43 Note Text: Pt unable to provide urine sample at this time. [facility] ED NOTE HNO ID: [id number] Author: CORIE BILLINGSLEY, Medic Service: ? Author Type: [employer] Department Chair Type: ED Notes Filed: 08/04/2023 09:52 Note Text: Pt also states she fell yesterday and LOC noted. Pt had had multiple episodes of diarrhea as well. Normal [facility] ED PROV NOTEon 08-04-2023 ED PROV NOTE Normal [facility] HIGH SENSITIVITY TROPONIN T (INITIAL)on 08-04-2023 Troponin T.cardiac High sensitivity method [Mass/Vol] <6 Normal <12 [facility] Comment on above: Order Comment: Geraldo marrero Type: BLOOD SPECIMENOrdering Facility: [facility] Address: [address] [place] [address] Result Comment: When assessing risk for acute [...] 30 day MACE. Performed By: #### L [id number] ####[facility]ATORYCLIA [id number] [place] [address] [place] [facility] HIGH SENSITIVITY TROPONIN T (SECOND)on 08-04-2023 Troponin T.cardiac High sensitivity method [Mass/Vol] <6 Normal <12 [facility] Comment on above: Order Comment: Geraldo marrero Type: BLOOD SPECIMENOrdering Facility: [facility] Address: [address] [place] [address] Result Comment: When assessing risk for acute [...] 30 day MACE. Performed By: #### L [id number] ####[facility]ITALIA [id number] [place] [address] [place] HISTORY PHYSICALon 4 HISTORY PHYSICAL Normal [facility] pital Lipase SerPl-cCncon 08-04-19 24 Lipase [Catalytic activity/Vol] 52 U/L Normal 16-61 [facility] Comment on above: Order Comment: Geraldo marrero Type: BLOOD SPECIMENOrdering Facility: [facility] Address: [address] [place] [address] Performed By: #### 2 4323-8, 14330-1, 3040-3 ####[facility]ORYIA [id number] [place] [address] [place] Magnesium SerPl-mCncon 08-03 Magnesium [Mass/Vol] 1.9 mg/dL Normal 1.7-2.3 [facility] Comment on above: Order Comment: Speci men Type: BLOOD SPECIMENOrdering Facility: [facility] Address: [address] [place] [address] Performed By: #### 2 4323-8, 82304-1, 3040-3 ####[facility]IA [id number] [place] [id number] [place] SEPSIS LACTATE W/ REFLEX (IN ITIAL)on 08-04-2023 Lactate [Moles/Vol] 1.5 mmol/L Normal 0.0-2.0 [facility] Comment on above: Order Comment: Speci men Type: BLOOD SPECIMENOrdering Facility: [facility] Address: [address] [place] [address] Performed By: #### S LACTR ####[facility] [id number] [place] [address] [facility] [place] Urinalysis complete panel (U )on 08-04-2023 Bilirubin Ql (U) Negative Normal Negative [facility] Comment on above: Order Comment: Speci men Type: URINE SPECIMENOrdering Facility: [facility] Address: [address] [place] [address] Performed By: #### 2 4356-8 ####[facility] [id number] [place] [id number] [place] Clarity (Unsp spec) Clear Normal Clear [facility] Comment on above: Order Comment: Speci men Type: URINE SPECIMENOrdering Facility: [facility] Address: [address] [place] [address] Performed By: #### 2 4356-8 ####[facility] [id number] [place] [address] [place] Color (U) Yellow Normal Yellow [facility] Comment on above: Order Comment: Speci men Type: URINE SPECIMENOrdering Facility: [facility] Address: [address] [place] [address] Performed By: #### 2 4356-8 ####[facility]ORYIA [id number] [place] [address] [place] Glucose Test strip (U) [Mass/Vol] Negative Normal Trace, Negative [facility] Comment on above: Order Comment: Speci men Type: URINE SPECIMENOrdering Facility: [facility] Address: [address] [place] [address] Performed By: #### 2 4356-8 ####[facility]ORYIA [id number] [place] [address] [place] Hemoglobin Ql (U) Negative Normal Negative, Trace [facility] Comment on above: Order Comment: Speci men Type: URINE SPECIMENOrdering Facility: [facility] Address: [address] [place] [address] Performed By: #### 2 4356-8 ####[facility]ITALIA [id number] [place] [address] [place] Ketones Ql (U) Negative Normal Negative, Trace [facility] Comment on above: Order Comment: Speci men Type: URINE SPECIMENOrdering Facility: [facility] Address: [address] [place] [address] Performed By: #### 2 4356-8 ####[facility]ITALIA [id number] [place] [address] [place] Leukocyte esterase Test strip Ql (U) Negative Normal Negative, 25 Patito/uL [facility] Comment on above: Order Comment: Speci men Type: URINE SPECIMENOrdering Facility: [facility] Address: [address] [place] [address] Performed By: #### 2 4356-8 ####[facility] [id number] [place] [address] [place] Nitrite Ql (U) Negative Normal Negative [facility] Comment on above: Order Comment: Speci men Type: URINE SPECIMENOrdering Facility: [facility] Address: [address] [place] [address] Performed By: #### 2 4356-8 ####[facility] [id number] [place] [id number] [place] pH (U) 7.5 [pH] Normal 5.0-8.0 [facility] Comment on above: Order Comment: Speci men Type: URINE SPECIMENOrdering Facility: [facility] Address: [address] [place] [address] Performed By: #### 2 4356-8 ####[facility] [id number] [place] [id number] [place] Protein (U) [Mass/Vol] Trace Normal Trace, Negative [facility] Comment on above: Order Comment: Speci men Type: URINE SPECIMENOrdering Facility: [facility] Address: [address] [place] [address] Performed By: #### 2 4356-8 ####[facility] [id number] [place] [id number] [place] RBC LM.HPF (Urine sed) [#/Area] 0-3 /HPF Normal 0-3 /HPF [facility] Comment on above: Order Comment: Speci men Type: URINE SPECIMENOrdering Facility: [facility] Address: [address] [place] [address] Performed By: #### 2 4356-8 ####[facility] [id number] [place] [id number] [place] Specific gravity (U) [Rel density] <1.005 Low 1.005-1.030 [facility] Comment on above: Order Comment: Speci men Type: URINE SPECIMENOrdering Facility: [facility] Address: [address] [place] [address] Performed By: #### 2 4356-8 ####[facility] [id number] [place] [address] [place] Urobilinogen Ql (U) Normal Normal Normal [facility] Comment on above: Order Comment: Speci men Type: URINE SPECIMENOrdering Facility: [facility] Address: [address] [place] [address] Performed By: #### 2 4356-8 ####[facility]ORATORYCLIA [id number] [place] [address] [place] WBC LM.HPF (Urine sed) [#/Area] 0-5 /HPF Normal 0-5 /HPF [facility] Comment on above: Order Comment: Speci men Type: URINE SPECIMENOrdering Facility: [facility] Address: [address] [place] [id number] Performed By: #### 2 4356-8 ####[facility]ORATORYCLIA [id number] [place] [address] [place] XR CHEST 1V FRONTAL PORTon 0 08-04-2023 XR CHEST 1V FRONTAL PORT Normal [facility] Activated partial thrombopla stin time (aPTT) in platelet poor plasma by coagulation aOrdered By: Jeramy Cunningham on 07-31-2023 aPTT Coag (PPP) [Time] 27.0 s 25.1-36.5 [facility] Comment on above: A hematocrit value g reater than 55% may lead to inaccurate results in coagulation testing. Patients having hematocrit values >55% require a special collection tube for coagulation studies. Please contact the laboratory at [phone] for redraw instructions. Alanine aminotransferase [En zymatic activity/volume] in Serum or PlasmaOrdered By: Jeramy Cunningham on 07-31-2023 ALT [Catalytic activity/Vol] 29 U/L Normal 7-52 [facility] Comment on above: Performed By: #### A DDONUAPLUS, CG, CUU #### [facility] [address] Albumin [Mass/volume] in Ser um or Plasma by Bromocresol green (BCG) dye binding methoOrdered By: Jeramy Cunningham on 07-31-2023 Albumin BCG dye [Mass/Vol] 4.0 g/dL 3.5-5.7 [facility] Alkaline phosphatase [Enzyma tic activity/volume] in Serum or PlasmaOrdered By: Jeramy Cunningham on 07-31-2023 ALP [Catalytic activity/Vol] 58 U/L Normal 34-104 [facility] Comment on above: Performed By: #### A JOSESITO RAY, CUU #### [address] Aspartate aminotransferase [ Enzymatic activity/volume] in Serum or PlasmaOrdered By: Jeramy Cunningham on 07-31-2023 AST [Catalytic activity/Vol] 34 U/L Normal 13-39 [facility] Comment on above: Performed By: #### A JOSESITO RAY, CUU #### [address] Automated basophil %Ordered By: Jeramy Cunningham on 07-31-2023 Basophils/100 WBC (Bld) 0.6 % Normal . [facility] Comment on above: Performed By: #### A JOSESITO RAY, CUU #### [address] Automated basophil countOrde red By: Jeramy Cunningham on 07-31-2023 Basophils (Bld) [#/Vol] 0.0 10*3/uL Normal 0.0-0.2 [facility] Comment on above: Result Comment: PERF ORMED BY: [place] [address] PATHOLOGIST MULTINEEDLE SHIRRER BAUTISTA BAKER M.D. Performed By: #### A JOSESITO RAY, CUU #### [address] Automated blood monocyte cou ntOrdered By: Jeramy Cunningham on 07-31-2023 Monocytes (Bld) [#/Vol] 0.2 10*3/uL Normal 0.0-0.8 [facility] Comment on above: Performed By: #### A JOSESITO RAY, CUU #### [address] Automated eosinophil %Ordere d By: Jeramy Cunningham on 07-31-2023 Eosinophils/100 WBC (Bld) 0.2 % Normal . [facility] Comment on above: Performed By: #### A JOSESITO RAY, CUU #### [address] Automated eosinophil countOr dered By: Jeramy Cunningham on 07-31-2023 Eosinophils (Bld) [#/Vol] 0.0 10*3/uL Normal 0.0-0.45 [facility] Comment on above: Performed By: #### A CORY ELIS, CUU #### [address] Automated monocyte %Ordered By: Jeramy Cunningham on 07-31-2023 Monocytes/100 WBC (Bld) 3.1 % Normal . [facility] Comment on above: Performed By: #### A CORY ELIS, CUU #### [address] Automated neutrophil %Ordere d By: Jeramy Cunningham on 07-31-2023 Neutrophils/100 WBC (Bld) 84.9 % Normal . [facility] Comment on above: Performed By: #### A CORY [facility], CUU #### [address] Basic Metabolic Panelon 07-16 Creatinine Clr Calc Pharmacy 120.10 Normal [facility] Comment on above: Performed By: #### H EPATIC, MG, LIPASE, CMP, CBC #### [address] GFR/1.73 sq M.predicted MDRD (S/P/Bld) [Vol rate/Area] mL/min/{1.73_m2} Normal [facility] Comment on above: Performed By: #### H EPATIC, MG, LIPASE, CMP, CBC #### [address] Bilirubin Test strip Ql (U)O rdered By: Jeramy Cunningham on 07-31-2023 Bilirubin Ql (U) Negative Negative [facility] Bilirubin.direct [Mass/volum e] in Serum or PlasmaOrdered By: Jeramy Cunningham on 07-31-2023 Bilirubin.direct [Mass/Vol] 0.10 mg/dL 0.03-0.18 [facility] Bilirubin.total [Mass/volume ] in Serum or PlasmaOrdered By: Jeramy Cunningham on 07-31-2023 Bilirubin [Mass/Vol] 0.4 mg/dL Normal 0.3-1.0 [facility] Comment on above: Performed By: #### A CORY, CG, CUU #### [address] abdomen pelvis w conon CT abdomen pelvis w [facility] [place] [address] [place] [address] CT Scan Report Signed Patient: Abbey Garcia MR#: [id number] : 1990 Acct:[id number] Age/Sex: 33 / F ADM Date: 07/31/23 Loc: ER Room: Type: [facility] ER Attending Dr: Copies to: Jeramy [...] Jason Palomo M.D.07/31/2023 12:28 PM Dictation Location: [place] [address] Transcribed By: [facility] 07/31/23 1228 Dictated By: Jason Palomo DO 07/31/23 1223 Signed By: 07/31/23 1228 Normal [facility] Calcium [Mass/volume] in Ser um or PlasmaOrdered By: Jeramy Cunningham on 07-31-2023 Calcium [Mass/Vol] 8.5 mg/dL Low 8.6-10.3 [facility] Comment on above: Performed By: #### H EPATIC, MG, LIPASE, CMP, CBC #### [facility] [address] [place] [address] Carbon dioxide, total [Moles /volume] in Serum or PlasmaOrdered By: Jeraym Cunningham on 07-31-2023 CO2 [Moles/Vol] 26.1 mmol/L Normal 21.0-31.0 [facility] Comment on above: Performed By: #### H EPATIC, MG, LIPASE, CMP, CBC #### [facility] [address] [place] [address] [place] Chloride [Moles/volume] in S elder or PlasmaOrdered By: Jeramy Cunningham on 07-31-2023 Chloride [Moles/Vol] 107 mmol/L Normal 98-107 [facility] Comment on above: Performed By: #### H EPATIC, MG, LIPASE, CMP, CBC #### [facility] [address] [place] [address] [place] Color of Urine by AutoOrdere d By: Jeramy Cunningham on 07-31-2023 Color (U) Colorless Normal Yellow [facility] Comment on above: Order Comment: Name Collection Type:: Clean-Voided Midstream Performed By: #### H EPATIC, MG, LIPASE, CMP, CBC #### [address] Complete Blood Count Auto Di ffon 07-31-2023 Mean Corpuscular HGB Conc 33.8 g/dL Normal 32.0-35.0 [facility] Comment on above: Performed By: #### A DDONUAPLUS, UHCG, CUU #### [address] Monocytes/100 WBC (Bld) 14.62 % Normal 0.00-20.00 [facility] Comment on above: Performed By: #### A DDONUAPLUS, UHCG, CUU #### [address] NRBC% 0.1 /100{WBC} Normal 0-0.5 [facility] Comment on above: Performed By: #### A DDONUAPLUS, UHCG, CUU #### [address] Creatinine [Mass/volume] in Serum or PlasmaOrdered By: Jeramy Cunningham on 07-31-2023 Creatinine [Mass/Vol] 0.70 mg/dL Normal 0.60-1.20 [facility] Comment on above: Performed By: #### H EPATIC, MG, LIPASE, CMP, CBC #### [address] Erythrocyte distribution wid th [Ratio] by Automated countOrdered By: Jeramy Cunningham on 07-31-2023 Erythrocyte distribution width (RBC) [Ratio] 14.2 % Normal 11.9-15.3 [facility] Comment on above: Performed By: #### A DDONUAPLUS, UHCG, CUU #### [address] Erythrocytes [#/volume] in B lood by Automated countOrdered By: Jeramy Cunningham on 07-31-2023 RBC (Bld) [#/Vol] 3.75 10*6/uL Normal 3.60-5.00 [facility] Comment on above: Performed By: #### A DDONUAPLUS, UHCG, CUU #### [facility] [address] [place] [address] [place] Glucose [Mass/volume] in Ser um or PlasmaOrdered By: Jeramy Cunningham on 07-31-2023 Glucose [Mass/Vol] 91 mg/dL Normal 70-100 [facility] Comment on above: ADA recommended refe rence rangeRandom Glucose Reference Range is dependent on time and content of last meal. Glucose of more than 200 mg/dL in a nonstressed, ambulatory subject supports the diagnosis of Diabetes Mellitus. Result Comment: [place] Glucose Reference Range is dependent on time and content of last meal. Glucose of more than 200 mg/dL in a nonstressed, ambulatory subject supports the diagnosis of Diabetes Mellitus. ADA recommended reference range Performed By: #### H EPATIC, MG, LIPASE, CMP, CBC #### [facility] [address] [place] [address] [place] Glucose [Mass/volume] in Uri ne by Test stripOrdered By: Jeramy Cunningham on 07-31-2023 Glucose Test strip (U) [Mass/Vol] Normal mg/dL Normal [facility] HCG ( test) IA.rapi d Ql (U)Ordered By: Jeramy Cunningham on 07-31-2023 HCG ( test) Ql (U) Negative [facility] HCG,Urineon 07-31-2023 Beta HCG ( test) Ql (U) Negative Normal [facility] Comment on above: Order Comment: Name Collection Type:: Clean-Voided Midstream Result Comment: PERF ORMED BY: [place] [address] PATHOLOGIST MULTINEEDLE SHIRRER BAUTISTA BAKER M.D. Performed By: #### H EPATIC, MG, LIPASE, CMP, CBC #### [facility] [address] [place] [address] [place] Hematocrit [Volume Fraction] of Blood by Automated countOrdered By: Jeramy Cunningham on 07-31-2023 Hematocrit (Bld) [Volume fraction] 33.2 % Low 34.0-46.4 [facility] Comment on above: Performed By: #### A DDONUAPLUS, UHCG, CUU #### [address] Hemoglobin Test strip Ql (U) Ordered By: Jeramy Cunningham on 07-31-2023 Hemoglobin Ql (U) Negative Negative [facility] Hemoglobin [Mass/volume] in BloodOrdered By: Jeramy Cunningham on 07-31-2023 Hemoglobin (Bld) [Mass/Vol] 11.2 g/dL Low 11.8-15.4 [facility] Comment on above: Performed By: #### A DDONUAPLUS, UHCG, CUU #### [address] Hepatic Panelon 07-31-2023 Albumin [Mass/Vol] 4.0 g/dL Normal 3.5-5.7 [facility] Comment on above: Performed By: #### A DDONUAJESSICA, UHCG, CUU #### [address] Bilirubin,Indirect 0.3 mg/dL Normal [facility] Comment on above: Performed By: #### A DDONUAPLUS, UHCG, CUU #### [address] Bilirubin.indirect [Mass/Vol] 0.10 mg/dL Normal 0.03-0.18 [facility] Comment on above: Performed By: #### A DDONUAPLUS, UHCG, CUU #### [address] INR in Platelet poor plasma by Coagulation assayOrdered By: Jeramy Cunningham on 07-31-2023 INR Coag (PPP) [Relative time] 1.1 {INR} Normal [facility] Comment on above: INR Therapeutic Rang e [...] H EPATIC, MG, LIPASE, CMP, CBC #### [place] [address] [place] Ketones [Presence] in Urine by Test stripOrdered By: Jeramy Cunningham on 07-31-2023 Ketones Ql (U) Negative Normal Negative [facility] Comment on above: Order Comment: Name Collection Type:: Clean-Voided Midstream Performed By: #### H EPATIC, MG, LIPASE, CMP, CBC #### [place] [address] [place] Leukocyte esterase [Presence ] in Urine by Test stripOrdered By: Jeramy Cunningham on 07-31-2023 Leukocyte esterase Test strip Ql (U) Negative Normal Negative [facility] Comment on above: Order Comment: Name Collection Type:: Clean-Voided Midstream Performed By: #### H EPATIC, MG, LIPASE, CMP, CBC #### [place] [address] [place] Leukocytes [#/volume] correc darvin for nucleated erythrocytes in Blood by Automated counOrdered By: Jeramy Cunningham on 07-31-2023 WBC corrected for nucl RBC Auto (Bld) [#/Vol] 7.7 10*3/uL 3.8-11.6 [facility] Leukocytes [#/volume] in Blo od by Automated countOrdered By: Jeramy Cunningham on 07-31-2023 WBC (Bld) [#/Vol] 7.7 10*3/uL Normal 3.8-11.6 [facility] Comment on above: Performed By: #### A DDONUAPLUS, UHCG, CUU #### [place] [address] [place] Lipase [Enzymatic activity/v olume] in Serum or PlasmaOrdered By: Jeramy Cunningham on 07-31-2023 Lipase [Catalytic activity/Vol] 36.0 U/L Normal 11.0-82.0 [facility] Comment on above: Result Comment: PERF ORMED BY: [place] [address] PATHOLOGIST MULTINEEDLE SHIRRER BAUTISTA BAKER M.D. Performed By: #### H EPATIC, MG, LIPASE, CMP, CBC #### [address] Lymphocytes [#/volume] in Bl ood by Automated countOrdered By: Jeramy Cunningham on 07-31-2023 Lymphocytes (Bld) [#/Vol] 0.9 10*3/uL Low 1.00-4.8 [facility] Comment on above: Performed By: #### A ALIYAH RAYG, CUU #### [address] Lymphocytes/100 leukocytes i n Blood by Automated countOrdered By: Jeramy Cunningham on 07-31-2023 Lymphocytes/100 WBC (Bld) 11.2 % Normal . [facility] Comment on above: Performed By: #### A JOSESITO RAY, CUU #### [address] MCH [Entitic mass] by Automa darvin countOrdered By: Jeramy Cunningham on 07-31-2023 MCH (RBC) [Entitic mass] 29.9 pg Normal 24.7-34.3 [facility] Comment on above: Performed By: #### A JOSESITO RAY, CUU #### [address] MCHC Auto (RBC) [Mass/Vol]Or dered By: Jeramy Cunningham on 07-31-2023 MCHC (RBC) [Mass/Vol] 33.8 g/dL 32.0-35.0 [facility] MCV [Entitic volume] by Auto mated countOrdered By: Jeramy Cunningham on 07-31-2023 MCV (RBC) [Entitic vol] 88.6 fL Normal 80-100 [facility] Comment on above: Performed By: #### A CORY, [facility], CUU #### [facility] [address] Monocyte distribution width [Entitic volume] in Blood by AutomatedOrdered By: Jeramy Cunningham on 07-31-2023 Monocyte distribution width Auto (Bld) [Entitic vol] 14.62 % 0.00-20.00 [facility] Neutrophils [#/volume] in Bl ood by Automated countOrdered By: Jeramy Cunningham on 07-31-2023 Neutrophils (Bld) [#/Vol] 6.5 10*3/uL Normal 1.8-7.7 [facility] Comment on above: Performed By: #### A CORY, ELIS, CUU #### [facility] [address] [place] [address] Nitrite Test strip Ql (U)Ord ered By: Jeramy Cunningham on 07-31-2023 Nitrite Ql (U) Negative Negative [facility] No Panel InformationOrdered By: Jeramy Cunningham on 07-31-2023 Estimated GFR (CKD-EPI) > 60.0 mL/Min [facility] Creatinine Clearance (Chem 120.10 [facility] Nucleated erythrocytes [Pres ence] in Blood by Automated countOrdered By: Jeramy Cunningham on 07-31-2023 Nucleated RBC Auto Ql (Bld) 0.1 /100{WBC} 0-0.5 [facility] Partial Thromboplastin Timeo n 07-31-2023 aPTT Coag (Bld) [Time] 27.0 s Normal 25.1-36.5 [facility] Comment on above: Result Comment: A he matocrit value greater than 55% may lead to inaccurate results in coagulation testing. Patients having hematocrit values >55% require a special collection tube for coagulation studies. Please contact the laboratory at [phone] for redraw instructions. PERFORMED BY: [place] [address] PATHOLOGIST MULTINEEDLE SHIRRER BAUTISTA BAKER M.D. Performed By: #### H EPATIC, MG, LIPASE, CMP, CBC #### [address] Platelet mean volume [Entiti c volume] in Blood by Automated countOrdered By: Jeramy Cunningham on 07-31-2023 Platelet mean volume (Bld) [Entitic vol] 8.5 fL Normal 6.3-10.7 [facility] Comment on above: Performed By: #### A MALLORIEUAJESSICA, CG, CUU #### [address] Platelets [#/volume] in Bloo d by Automated countOrdered By: Jeramy Cunningham on 07-31-2023 Platelets (Bld) [#/Vol] 276 10*3/uL Normal 150-450 [facility] Comment on above: Performed By: #### A CORY, [facility], CUU #### [address] Potassium [Moles/volume] in Serum or PlasmaOrdered By: Jeramy Cunningham on 07-31-2023 Potassium [Moles/Vol] 3.8 mmol/L Normal 3.5-5.1 [facility] Comment on above: Performed By: #### H EPATIC, MG, LIPASE, CMP, CBC #### [address] Protein Test strip (U) [Mass /Vol]Ordered By: Jeramy Cunningham on 07-31-2023 Protein (U) [Mass/Vol] Negative Negative [facility] Protein [Mass/volume] in Ser um or PlasmaOrdered By: Jeramy Cunningham on 07-31-2023 Protein [Mass/Vol] 6.7 g/dL Normal 6.4-8.9 [facility] Comment on above: Performed By: #### A DDONUAPLUS, UHCG, CUU #### [address] Prothrombin time (PT)Ordered By: Jeramy Cunningham on 07-31-2023 PT Coag (PPP) [Time] 12.3 s Normal 9.0-12.9 [facility] Comment on above: A hematocrit value g reater than 55% may lead to inaccurate results in coagulation testing. Patients having hematocrit values >55% require a special collection tube for coagulation studies. Please contact the laboratory at [phone] for redraw instructions. Result Comment: A he matocrit value greater than 55% may lead to inaccurate results in coagulation testing. Patients having hematocrit values >55% require a special collection tube for coagulation studies. Please contact the laboratory at [phone] for redraw instructions. Performed By: #### H EPATIC, MG, LIPASE, CMP, CBC #### [address] Serum globulin measurement b y calculation (mass/volume)Ordered By: Jeramy Cunningham on 07-31-2023 Globulin (S) [Mass/Vol] 2.7 g/dL Normal [facility] Comment on above: Performed By: #### A DDONUAPLUS, UHCG, CUU #### [address] Serum or plasma albumin/glob ulin mass ratioOrdered By: Jeramy Cunningham on 07-31-2023 Albumin/Globulin [Mass ratio] 1.5 {ratio} [facility] Comment on above: Performed By: #### A DDONUAPLUS, UHCG, CUU #### [address] Serum or plasma anion gap de terminationOrdered By: Jeramy Cunningham on 07-31-2023 Anion gap [Moles/Vol] 10.7 mmol/L Normal 6.0-15.0 [facility] Comment on above: Performed By: #### H EPATIC, MG, LIPASE, CMP, CBC #### [address] Serum or plasma non-glucuron idated bilirubin measurement (mass/volume)Ordered By: Jeramy Cunningham on 07-31-2023 Bilirubin.indirect [Mass/Vol] 0.3 mg/dL [facility] Sodium [Moles/volume] in Ser um or PlasmaOrdered By: Jeramy Cunningham on 07-31-2023 Sodium [Moles/Vol] 140 mmol/L Normal 136-145 [facility] Comment on above: Performed By: #### H EPATIC, MG, LIPASE, CMP, CBC #### [address] Specific gravity Test strip (U) [Rel density]Ordered By: Jeramy Cunningham on 07-31-2023 Specific gravity (U) [Rel density] 1.006 1.001-1.030 [facility] Urea nitrogen [Mass/volume] in Serum or PlasmaOrdered By: Jeramy Cunningham on 07-31-2023 Urea nitrogen [Mass/Vol] 16 mg/dL Normal 7-25 [facility] Comment on above: Performed By: #### H EPATIC, MG, LIPASE, CMP, CBC #### [address] Urinalysison 07-31-2023 Bilirubin,Urine Negative Normal Negative [facility] Comment on above: Order Comment: Name Collection Type:: Clean-Voided Midstream Performed By: #### H EPATIC, MG, LIPASE, CMP, CBC #### [address] Glucose Ql (U) Normal Normal Normal [facility] Comment on above: Order Comment: Name Collection Type:: Clean-Voided Midstream Performed By: #### H EPATIC, MG, LIPASE, CMP, CBC #### [address] Nitrite,Urine Negative Normal Negative [facility] Comment on above: Order Comment: Name Collection Type:: Clean-Voided Midstream Performed By: #### H EPATIC, MG, LIPASE, CMP, CBC #### [address] Occult Blood,Urine Negative Normal Negative [facility] Comment on above: Order Comment: Name Collection Type:: Clean-Voided Midstream Performed By: #### H EPATIC, MG, LIPASE, CMP, CBC #### [address] Protein,Urine Negative Normal Negative [facility] Comment on above: Order Comment: Name Collection Type:: Clean-Voided Midstream Performed By: #### H EPATIC, MG, LIPASE, CMP, CBC #### [address] Specificy Arjay,Urine 1.006 Normal 1.001-1.030 [facility] Comment on above: Order Comment: Name Collection Type:: Clean-Voided Midstream Performed By: #### H EPATIC, MG, LIPASE, CMP, CBC #### [address] Urobilinogen,Urine Normal Normal Normal [facility] Comment on above: Order Comment: Name Collection Type:: Clean-Voided Midstream Performed By: #### H EPATIC, MG, LIPASE, CMP, CBC #### [address] Urine appearanceOrdered By: Jeramy Cunningham on 07-31-2023 Appearance (U) Clear Normal Clear [facility] Comment on above: Order Comment: Name Collection Type:: Clean-Voided Midstream Performed By: #### H EPATIC, MG, LIPASE, CMP, CBC #### [address] Urobilinogen Test strip (U) [Mass/Vol]Ordered By: Jeramy Cunningham on 07-31-2023 Urobilinogen (U) [Mass/Vol] Normal mg/dL Normal [facility] pH of Urine by Test stripOrd ered By: Jeramy Cunningham on 07-31-2023 pH (U) 8.0 [pH] Normal 5.0-9.0 [facility] Comment on above: Order Comment: Name Collection Type:: Clean-Voided Midstream Performed By: #### H EPATIC, MG, LIPASE, CMP, CBC #### [address] CBC W Auto Differential pane l (Bld)on 07-30-2023 Basophils (Bld) [#/Vol] 0.04 10*3/uL Normal <0.11 [facility] Comment on above: Order Comment: Speci men Type: BLOOD SPECIMENOrdering Facility: [facility] Address: [address] [place] [address] Performed By: #### 5 7021-8 ####[facility] LABCLIA [id number] [place] [address] [place] Basophils/100 WBC (Bld) 0.4 % Normal [facility] Comment on above: Order Comment: Speci men Type: BLOOD SPECIMENOrdering Facility: [facility] Address: [address] [place] [address] Performed By: #### 5 7021-8 ####[facility] LABCLIA [id number] [place] [address] [place] Differential cell count method Nom (Bld) Auto Normal [facility] Comment on above: Order Comment: Speci men Type: BLOOD SPECIMENOrdering Facility: [facility] Address: [address] [place] [address] Performed By: #### 5 7021-8 ####[facility] LABCLIA [id number] [place] [address] [place] Eosinophils (Bld) [#/Vol] 0.05 10*3/uL Normal <0.46 [facility] Comment on above: Order Comment: Speci men Type: BLOOD SPECIMENOrdering Facility: [facility] Address: [address] [place] [address] Performed By: #### 5 7021-8 ####[facility] LABCLIA [id number] [place] [address] [place] Eosinophils/100 WBC (Bld) 0.5 % Normal [facility] Comment on above: Order Comment: Speci men Type: BLOOD SPECIMENOrdering Facility: [facility] Address: [address] [place] [address] Performed By: #### 5 7021-8 ####[facility] LABCLIA [id number] [place] [address] [place] Erythrocyte distribution width (RBC) [Ratio] 13.0 % Normal 11.5-15.0 [facility] Comment on above: Order Comment: Speci men Type: BLOOD SPECIMENOrdering Facility: [facility] Address: [address] [place] [address] Performed By: #### 5 7021-8 ####[facility] LABIA [id number] [place] [address] [place] Hematocrit (Bld) [Volume fraction] 33.7 % Low 36.0-46.0 [facility] Comment on above: Order Comment: Speci men Type: BLOOD SPECIMENOrdering Facility: [facility] Address: [address] [place] [address] Performed By: #### 5 7021-8 ####[facility] LABIA [id number] [place] [address] [place] Hemoglobin (Bld) [Mass/Vol] 11.1 g/dL Low 11.5-15.5 [facility] Comment on above: Order Comment: Speci men Type: BLOOD SPECIMENOrdering Facility: [facility] Address: [address] [place] [address] Performed By: #### 5 7021-8 ####[facility] LABIA [id number] [place] [address] [place] Immature granulocytes (Bld) [#/Vol] 0.03 10*3/uL Normal <0.10 [facility] Comment on above: Order Comment: Speci men Type: BLOOD SPECIMENOrdering Facility: [facility] Address: [address] [place] [address] Performed By: #### 5 7021-8 ####[facility] LABIA [id number] [place] [address] [place] Immature granulocytes/100 WBC (Bld) 0.3 % Normal [facility] Comment on above: Order Comment: Speci men Type: BLOOD SPECIMENOrdering Facility: [facility] Address: [address] [place] [address] Performed By: #### 5 7021-8 ####[facility] LABCLIA [id number] [place] [address] [place] Lymphocytes (Bld) [#/Vol] 2.10 10*3/uL Normal 1.00-4.00 [facility] Comment on above: Order Comment: Speci men Type: BLOOD SPECIMENOrdering Facility: [facility] Address: [address] [place] [address] Performed By: #### 5 7021-8 ####[facility] LABCLIA [id number] [place] [address] [place] Lymphocytes/100 WBC (Bld) 22.0 % Normal [facility] Comment on above: Order Comment: Speci men Type: BLOOD SPECIMENOrdering Facility: [facility] Address: [address] [place] [address] Performed By: #### 5 7021-8 ####[facility] LABCLIA [id number] [place] [address] [place] MCH (RBC) [Entitic mass] 29.8 pg Normal 26.0-34.0 [facility] Comment on above: Order Comment: Speci men Type: BLOOD SPECIMENOrdering Facility: [facility] Address: [address] [place] [address] Performed By: #### 5 7021-8 ####[facility] LABCLIA [id number] [place] [address] [place] MCHC (RBC) [Mass/Vol] 32.9 g/dL Normal 30.5-36.0 [facility] Comment on above: Order Comment: Speci men Type: BLOOD SPECIMENOrdering Facility: [facility] Address: [address] [place] [address] Performed By: #### 5 7021-8 ####[facility] LABCLIA [id number] [place] [address] [place] MCV (RBC) [Entitic vol] 90.3 fL Normal 80.0-100.0 [facility] Comment on above: Order Comment: Speci men Type: BLOOD SPECIMENOrdering Facility: [facility] Address: [address] [place] [address] Performed By: #### 5 7021-8 ####[facility] LABCLIA [id number] [place] [address] [place] Monocytes (Bld) [#/Vol] 0.57 10*3/uL Normal <0.87 [facility] Comment on above: Order Comment: Speci men Type: BLOOD SPECIMENOrdering Facility: [facility] Address: [address] [place] [address] Performed By: #### 5 7021-8 ####[facility] LABCLIA [id number] [place] [address] [place] Monocytes/100 WBC (Bld) 6.0 % Normal [facility] Comment on above: Order Comment: Speci men Type: BLOOD SPECIMENOrdering Facility: [facility] Address: [address] [place] [address] Performed By: #### 5 7021-8 ####[facility] LABCLIA [id number] [place] [address] [place] Neutrophils (Bld) [#/Vol] 6.74 10*3/uL Normal 1.45-7.50 [facility] Comment on above: Order Comment: Speci men Type: BLOOD SPECIMENOrdering Facility: [facility] Address: [address] [place] [address] Performed By: #### 5 7021-8 ####[facility] LABCLIA [id number] [place] [id number] [address] [place] Neutrophils/100 WBC (Bld) 70.8 % Normal [facility] Comment on above: Order Comment: Speci men Type: BLOOD SPECIMENOrdering Facility: [facility] Address: [address] [place] [address] Performed By: #### 5 7021-8 ####[facility] LABCLIA [id number] [place] [address] [place] Nucleated RBC (Bld) [#/Vol] 10*3/uL Normal <0.01 [facility] Comment on above: Order Comment: Speci men Type: BLOOD SPECIMENOrdering Facility: [facility] Address: [address] [place] [address] Performed By: #### 5 7021-8 ####[facility] LABCLIA [id number] [place] [address] [place] Nucleated RBC/100 WBC (Bld) [Ratio] 0.0 /100 WBC Normal [facility] Comment on above: Order Comment: Speci men Type: BLOOD SPECIMENOrdering Facility: [facility] Address: [address] [place] [address] Performed By: #### 5 7021-8 ####[facility] LABCLIA [id number] [place] [address] [place] Platelet mean volume (Bld) [Entitic vol] 10.3 fL Normal 9.0-12.7 [facility] Comment on above: Order Comment: Speci men Type: BLOOD SPECIMENOrdering Facility: [facility] Address: [address] [place] [address] Performed By: #### 5 7021-8 ####[facility] LABCLIA [id number] [place] [address] [place] Platelets (Bld) [#/Vol] 258 10*3/uL Normal 150-400 [facility] Comment on above: Order Comment: Speci men Type: BLOOD SPECIMENOrdering Facility: [facility] Address: [address] [place] [address] Performed By: #### 5 7021-8 ####[facility] LABCLIA [id number] [place] [address] [place] RBC (Bld) [#/Vol] 3.73 10*6/uL Low 3.90-5.[address] [facility] Comment on above: Order Comment: Speci men Type: BLOOD SPECIMENOrdering Facility: [facility] Address: [address] [place] [address] Performed By: #### 5 7021-8 ####[facility] LABIA [id number] [place] [address] [place] WBC (Bld) [#/Vol] 9.53 10*3/uL Normal 3.70-11.[address] [facility] Comment on above: Order Comment: Speci men Type: BLOOD SPECIMENOrdering Facility: [facility] Address: [address] [place] [address] Performed By: #### 5 7021-8 ####[facility] LABIA [id number] [place] [address] [place] Comprehensive metabolic 2000 panelon 07-30-2023 Albumin [Mass/Vol] 4.0 g/dL Normal 3.9-4.9 [facility] Comment on above: Order Comment: Speci men Type: BLOOD SPECIMENOrdering Facility: [facility] Address: [address] [place] [address] Performed By: #### 2 4323-8 ####[facility] LABIA [id number] [place] [address] [place] ALP [Catalytic activity/Vol] 64 U/L Normal 34-123 [facility] Comment on above: Order Comment: Speci men Type: BLOOD SPECIMENOrdering Facility: [facility] Address: [address] [place] [address] Performed By: #### 2 4323-8 ####[facility] LABCLIA [id number] [place] [address] [place] ALT [Catalytic activity/Vol] 30 U/L Normal 7-38 [facility] Comment on above: Order Comment: Speci men Type: BLOOD SPECIMENOrdering Facility: [facility] Address: [address] [place] [address] Performed By: #### 2 4323-8 ####[facility] LABCLIA [id number] [place] [address] [place] Anion gap [Moles/Vol] 12 mmol/L Normal 8-15 [facility] Comment on above: Order Comment: Speci men Type: BLOOD SPECIMENOrdering Facility: [facility] Address: [address] [place] [address] Performed By: #### 2 4323-8 ####[facility] LABCLIA [id number] [place] [address] [place] AST [Catalytic activity/Vol] 30 U/L Normal 13-35 [facility] Comment on above: Order Comment: Speci men Type: BLOOD SPECIMENOrdering Facility: [facility] Address: [address] [place] [address] Performed By: #### 2 4323-8 ####[facility] LABCLIA [id number] [place] [address] [place] Bilirubin [Mass/Vol] 0.2 mg/dL Normal 0.2-1.3 [facility] Comment on above: Order Comment: Speci men Type: BLOOD SPECIMENOrdering Facility: [facility] Address: [address] [place], [place] [address] Performed By: #### 2 4323-8 ####[facility] LABCLIA [id number] [place] [address] [place] Calcium [Mass/Vol] 8.7 mg/dL Normal 8.5-10.2 [facility] Comment on above: Order Comment: Speci men Type: BLOOD SPECIMENOrdering Facility: [facility] Address: [address] [place] [address] Performed By: #### 2 4323-8 ####[facility] LABCLIA [id number] [place] [id number] [place] Chloride [Moles/Vol] 105 mmol/L Normal 98-107 [facility] Comment on above: Order Comment: Speci men Type: BLOOD SPECIMENOrdering Facility: [facility] Address: [address] [place] [address] Performed By: #### 2 4323-8 ####[facility] LABCLIA [id number] [place] [address] [place] CO2 [Moles/Vol] 22 mmol/L Normal 22-30 [facility] Comment on above: Order Comment: Speci men Type: BLOOD SPECIMENOrdering Facility: [facility] Address: [address] [place] [address] Performed By: #### 2 4323-8 ####[facility] LABCLIA [id number] [place] [address] [place] Creatinine [Mass/Vol] 0.59 mg/dL Normal 0.58-0.96 [facility] Comment on above: Order Comment: Speci men Type: BLOOD SPECIMENOrdering Facility: [facility] Address: [address] [place] [address] Performed By: #### 2 4323-8 ####[facility] LABCLIA [id number] [place] [address] [place] Creatinine and Glomerular filtration rate.predicted panel (S/P/Bld) 121 mL/min/1.73m??? Normal >=60 [facility] Comment on above: Order Comment: Speci men Type: BLOOD SPECIMENOrdering Facility: [facility] Address: [address] [place] [address] Result Comment: Jessica mated Glomerular Filtration Rate [...] actual GFR. Performed By: #### 2 4323-8 ####[facility] LABCLIA [id number] [place] [id number] [place] Glucose [Mass/Vol] 88 mg/dL Normal 74-99 [facility] Comment on above: Order Comment: Specmichael marrero Type: BLOOD SPECIMENOrdering Facility: [facility] Address: [address] [place] [address] Result Comment: The [place] [employer] (ADA) provides guidance for cutoff [...] Standards of Medical Care in Diabetes 2016, [place] [employer]. Diabetes Care. 2016.39(Suppl 1). Performed By: #### 2 4323-8 ####[facility] LABCLIA [id number] [place] [id number] [place] Potassium [Moles/Vol] 4.0 mmol/L Normal 3.7-5.1 [facility] Comment on above: Order Comment: Geraldo marrero Type: BLOOD SPECIMENOrdering Facility: [facility] Address: [address] [place] [address] Performed By: #### 2 4323-8 ####[facility] LABCLIA [id number] [address] [address] [place] Protein [Mass/Vol] 6.5 g/dL Normal 6.3-8.0 [facility] Comment on above: Order Comment: Speci men Type: BLOOD SPECIMENOrdering Facility: [facility] Address: [address] [place] [address] Performed By: #### 2 4323-8 ####[facility] LABCLIA [id number] [address] [address] [place] Sodium [Moles/Vol] 139 mmol/L Normal 136-144 [facility] Comment on above: Order Comment: Speci men Type: BLOOD SPECIMENOrdering Facility: [facility] Address: [address] [place] [address] Performed By: #### 2 4323-8 ####[facility] LABCLIA [id number] [place] [address] [place] Urea nitrogen [Mass/Vol] 13 mg/dL Normal 7-21 [facility] Comment on above: Order Comment: Speci men Type: BLOOD SPECIMENOrdering Facility: [facility] Address: [address] [place] [address] Performed By: #### 2 4323-8 ####[facility] LABCLIA [id number] [place] [address] [place] Basic metabolic 2000 panelon 07-20-2023 Anion gap [Moles/Vol] 14 mmol/L Normal 9-18 [facility] Comment on above: Order Comment: Speci men Type: BLOOD SPECIMENOrdering Facility: [facility] Address: [address] [place] [address] Performed By: #### 2 777-1, 03815-3, 08947-4 ####[facility]ORYCLIA [id number] [place] [id number] [place] Calcium [Mass/Vol] 8.9 mg/dL Normal 8.5-10.2 [facility] Comment on above: Order Comment: Speci men Type: BLOOD SPECIMENOrdering Facility: [facility] Address: [address] [place] [address] Performed By: #### 2 777-1, 44838-0, ####[facility]ORYCLIA [id number] [place] [id number] [place] Chloride [Moles/Vol] 110 mmol/L High 97-105 [facility] Comment on above: Order Comment: Speci men Type: BLOOD SPECIMENOrdering Facility: [facility] Address: [address] [place] [address] Performed By: #### 2 777-1, 01269-7, ####[facility]ORYCLIA [id number] [place] [id number] [place] CO2 [Moles/Vol] 19 mmol/L Low 22-30 [facility] Comment on above: Order Comment: Speci men Type: BLOOD SPECIMENOrdering Facility: [facility] Address: [address] [place] [address] Performed By: #### 2 777-1, , ####[facility]ORYCLIA [id number] [place] [id number] [place] Creatinine [Mass/Vol] 0.76 mg/dL Normal 0.58-0.96 [facility] Comment on above: Order Comment: Speci men Type: BLOOD SPECIMENOrdering Facility: [facility] Address: [address] [place] [address] Performed By: #### 2 777-1, 29575-4, ####[facility]ATORYCLIA [id number] [place] [id number] [facility] Creatinine and Glomerular filtration rate.predicted panel (S/P/Bld) 106 mL/min/1.73m??? Normal >=60 [facility] Comment on above: Order Comment: Speci men Type: BLOOD SPECIMENOrdering Facility: [facility] Address: [address] [place] [address] Result Comment: Jessica mated Glomerular Filtration Rate [...] actual GFR. Performed By: #### 2 777-1, 25946-5, ####[facility] LABORATORYCLIA [id number] [place] [id number] [place] Glucose [Mass/Vol] 97 mg/dL Normal 74-99 [facility] Comment on above: Order Comment: Lyssai men Type: BLOOD SPECIMENOrdering Facility: [facility] Address: [address] [place] [address] Result Comment: The [place] [employer] (ADA) provides guidance for cutoff [...] Standards of Medical Care in Diabetes 2016, [place] [employer]. Diabetes Care. 2016.39(Suppl 1). Performed By: #### 2 777-1, 51327-6, ####[facility]ATORYCLIA [id number] [place] [id number] [place] Potassium [Moles/Vol] 4.0 mmol/L Normal 3.7-5.1 [facility] Comment on above: Order Comment: Geraldo marrero Type: BLOOD SPECIMENOrdering Facility: [facility] Address: [address] [place] [id number] Performed By: #### 2 777-1, 18886-5, ####[facility] LABORATORYCLIA [id number] [place] [id number] [place] Sodium [Moles/Vol] 143 mmol/L Normal 136-144 [facility] Comment on above: Order Comment: Geraldo men Type: BLOOD SPECIMENOrdering Facility: [facility] Address: [address] [place] [address] Performed By: #### 2 777-1, 74642-4, ####[facility]ORATORYCLIA [id number] [place] [id number] [place] [facility] Urea nitrogen [Mass/Vol] 8 mg/dL Normal 7-21 [facility] Comment on above: Order Comment: Speci men Type: BLOOD SPECIMENOrdering Facility: [facility] Address: [address] [place] [address] Performed By: #### 2 777-1, 37440-8, ####[facility]ATORYCLIA [id number] [place] [id number] [facility] CASE MANAGEMon 07-20-2023 CASE MANAGEM Normal [facility] CBC W Auto Differential pane l (Bld)on 07-20-2023 Basophils (Bld) [#/Vol] 10*3/uL Normal <0.11 [facility] Comment on above: Order Comment: Speci men Type: BLOOD SPECIMENOrdering Facility: [facility] Address: [address] [place] [address] Performed By: #### 5 7021-8 ####[facility]ATORYCLIA [id number] [address] [place] Basophils/100 WBC (Bld) 0.4 % Normal [facility] Comment on above: Order Comment: Speci men Type: BLOOD SPECIMENOrdering Facility: [facility] Address: [address] [place] [address] Performed By: #### 5 7021-8 ####[facility]ORATORYCLIA [id number] [place] [id number] [place] Differential cell count method Nom (Bld) Auto Normal [facility] Comment on above: Order Comment: Speci men Type: BLOOD SPECIMENOrdering Facility: [facility] Address: [address] [place] [address] Performed By: #### 5 7021-8 ####[facility] LABORATORYCLIA [id number] [place] [id number] [place] Eosinophils (Bld) [#/Vol] 0.19 10*3/uL Normal <0.46 [facility] Comment on above: Order Comment: Speci men Type: BLOOD SPECIMENOrdering Facility: [facility] Address: [address] [place] [address] Performed By: #### 5 7021-8 ####[facility]ORATORYCLIA [id number] [place] [id number] [facility] Eosinophils/100 WBC (Bld) 3.8 % Normal [facility] Comment on above: Order Comment: Speci men Type: BLOOD SPECIMENOrdering Facility: [facility] Address: [address] [place] [address] Performed By: #### 5 7021-8 ####[facility] LABORATORYCLIA [id number] [address] Erythrocyte distribution width (RBC) [Ratio] 12.8 % Normal 11.5-15.0 [facility] Comment on above: Order Comment: Speci men Type: BLOOD SPECIMENOrdering Facility: [facility] Address: [address] [place] [address] Performed By: #### 5 7021-8 ####[facility] LABORATORYCLIA [id number] [address] Hematocrit (Bld) [Volume fraction] 31.6 % Low 36.0-46.0 [facility] Comment on above: Order Comment: Speci men Type: BLOOD SPECIMENOrdering Facility: [facility] Address: [address] [place] [address] Performed By: #### 5 7021-8 ####[facility]ORATORYCLIA [id number] [place] [id number] [place] Hemoglobin (Bld) [Mass/Vol] 10.5 g/dL Low 11.5-15.5 [facility] Comment on above: Order Comment: Speci men Type: BLOOD SPECIMENOrdering Facility: [facility] Address: [address] [place] [address] Performed By: #### 5 7021-8 ####[facility] LABORATORYCLIA [id number] [place] [address] [place] Immature granulocytes (Bld) [#/Vol] 10*3/uL Normal <0.10 [facility] Comment on above: Order Comment: Speci men Type: BLOOD SPECIMENOrdering Facility: [facility] Address: [address] [place] [address] Performed By: #### 5 7021-8 ####[facility] LABORATORYCLIA [id number] [place] [address] [place] [facility] Immature granulocytes/100 WBC (Bld) 0.2 % Normal [facility] Comment on above: Order Comment: Speci men Type: BLOOD SPECIMENOrdering Facility: [facility] Address: [address] [place] [address] Performed By: #### 5 7021-8 ####[facility] LABORATORYCLIA [id number] [place] [address] [place] Lymphocytes (Bld) [#/Vol] 0.99 10*3/uL Low 1.00-4.00 [facility] Comment on above: Order Comment: Speci men Type: BLOOD SPECIMENOrdering Facility: [facility] Address: [address] [place] [address] Performed By: #### 5 7021-8 ####[facility] LABORATORYCLIA [id number] [address] Lymphocytes/100 WBC (Bld) 19.8 % Normal [facility] Comment on above: Order Comment: Speci men Type: BLOOD SPECIMENOrdering Facility: [facility] Address: [address] [place] [address] Performed By: #### 5 7021-8 ####[facility] LABORATORYCLIA [id number] [place] [address] [place] MCH (RBC) [Entitic mass] 30.2 pg Normal 26.0-34.0 [facility] Comment on above: Order Comment: Speci men Type: BLOOD SPECIMENOrdering Facility: [facility] Address: [address] [place] [address] Performed By: #### 5 7021-8 ####[facility] LABORATORYCLIA [id number] [place] [id number] [place] MCHC (RBC) [Mass/Vol] 33.2 g/dL Normal 30.5-36.0 [facility] Comment on above: Order Comment: Speci men Type: BLOOD SPECIMENOrdering Facility: [facility] Address: [address] [place] [address] Performed By: #### 5 7021-8 ####[facility] LABORATORYCLIA [id number] [place] [id number] [place] MCV (RBC) [Entitic vol] 90.8 fL Normal 80.0-100.0 [facility] Comment on above: Order Comment: Speci men Type: BLOOD SPECIMENOrdering Facility: [facility] Address: [address] [place] [address] Performed By: #### 5 7021-8 ####[facility] LABORATORYCLIA [id number] [place] [address] [place] Monocytes (Bld) [#/Vol] 0.32 10*3/uL Normal <0.87 [facility] Comment on above: Order Comment: Speci men Type: BLOOD SPECIMENOrdering Facility: [facility] Address: [address] [place] [address] Performed By: #### 5 7021-8 ####[facility] LABORATORYCLIA [id number] [place] [id number] [place] Monocytes/100 WBC (Bld) 6.4 % Normal [facility] Comment on above: Order Comment: Speci men Type: BLOOD SPECIMENOrdering Facility: [facility] Address: [address] [place] [address] Performed By: #### 5 7021-8 ####[facility] LABORATORYCLIA [id number] [place] [id number] [place] Neutrophils (Bld) [#/Vol] 3.47 10*3/uL Normal 1.45-7.50 [facility] Comment on above: Order Comment: Speci men Type: BLOOD SPECIMENOrdering Facility: [facility] Address: [address] [place] [address] Performed By: #### 5 7021-8 ####[facility] LABORATORYCLIA [id number] [place] [id number] [place] Neutrophils/100 WBC (Bld) 69.4 % Normal [facility] Comment on above: Order Comment: Speci men Type: BLOOD SPECIMENOrdering Facility: [facility] Address: [address] [place] [address] Performed By: #### 5 7021-8 ####[facility] LABORATORYCLIA [id number] [place] [address] [place] Nucleated RBC (Bld) [#/Vol] 10*3/uL Normal <0.01 [facility] Comment on above: Order Comment: Speci men Type: BLOOD SPECIMENOrdering Facility: [facility] Address: [address] [place] [address] Performed By: #### 5 7021-8 ####[facility] LABORATORYCLIA [id number] [place] [address] [place] Nucleated RBC/100 WBC (Bld) [Ratio] 0.0 /100 WBC Normal [facility] Comment on above: Order Comment: Speci men Type: BLOOD SPECIMENOrdering Facility: [facility] Address: [address] [place] [address] Performed By: #### 5 7021-8 ####[facility] LABORATORYCLIA [id number] [place] [id number] [place] Platelet mean volume (Bld) [Entitic vol] 11.1 fL Normal 9.0-12.7 [facility] Comment on above: Order Comment: Speci men Type: BLOOD SPECIMENOrdering Facility: [facility] Address: [address] [place] [address] Performed By: #### 5 7021-8 ####[facility] LABORATORYCLIA [id number] [place] [id number] [place] Platelets (Bld) [#/Vol] 225 10*3/uL Normal 150-400 [facility] Comment on above: Order Comment: Speci men Type: BLOOD SPECIMENOrdering Facility: [facility] Address: [address] [place] [address] Performed By: #### 5 7021-8 ####[facility] LABORATORYCLIA [id number] [place] [id number] [place] [facility] RBC (Bld) [#/Vol] 3.48 10*6/uL Low 3.90-5.20 [facility] Comment on above: Order Comment: Speci men Type: BLOOD SPECIMENOrdering Facility: [facility] Address: [address] [place] [address] Performed By: #### 5 7021-8 ####[facility] LABORATORYCLIA [id number] [place] [id number] [facility] WBC (Bld) [#/Vol] 5.00 10*3/uL Normal 3.70-11.00 [facility] Comment on above: Order Comment: Speci men Type: BLOOD SPECIMENOrdering Facility: [facility] Address: [address] [place] [address] Performed By: #### 5 7021-8 ####[facility] LABORATORYCLIA [id number] [place] [id number] [facility] [place] CNDSon 07-20-2023 CNDS [facility] Magnesium SerPl-mCncon 07-19 Magnesium [Mass/Vol] 2.1 mg/dL Normal 1.7-2.3 [facility] Comment on above: Order Comment: Speci men Type: BLOOD SPECIMENOrdering Facility: [facility] Address: [address] [place] [address] Performed By: #### 2 777-1, 13175-6, 39090-2 ####[facility] LABORATORYCLIA [id number] [place] [id number] [facility] [place] NURSING PROGon 07-20-2023 NURSING PROG Normal [facility] Phosphate SerPl-mCncon 07-19 Phosphate [Mass/Vol] 4.2 mg/dL Normal 2.7-4.8 [facility] Comment on above: Order Comment: Speci men Type: BLOOD SPECIMENOrdering Facility: [facility] Address: [address] [place] [address] Performed By: #### 2 777-1, 07742-2, ####[facility] LABORATORYCLIA [id number] [place] [address] [place] Basic metabolic 2000 panelon 07-19-2023 Anion gap [Moles/Vol] 9 mmol/L Normal 9-18 [facility] Comment on above: Order Comment: Speci men Type: BLOOD SPECIMENOrdering Facility: [facility] Address: [address] [place] [address] Performed By: #### 2 777-1, , ####[facility] LABORATORYCLIA [id number] [place] [id number] [place] Calcium [Mass/Vol] 8.7 mg/dL Normal 8.5-10.2 [facility] Comment on above: Order Comment: Speci men Type: BLOOD SPECIMENOrdering Facility: [facility] Address: [address] [place] [address] Performed By: #### 2 777-1, , ####[facility] LABORATORYCLIA [id number] [place] [id number] [place] Chloride [Moles/Vol] 107 mmol/L High 97-105 [facility] Comment on above: Order Comment: Speci men Type: BLOOD SPECIMENOrdering Facility: [facility] Address: [address] [place], [place] [address] Performed By: #### 2 777-1, , ####[facility] LABORATORYCLIA [id number] [place] [address] [place] CO2 [Moles/Vol] 23 mmol/L Normal 22-30 [facility] Comment on above: Order Comment: Speci men Type: BLOOD SPECIMENOrdering Facility: [facility] Address: [address] [place], [place] [address] Performed By: #### 2 777-1, 80896-1, ####[facility] LABORATORYCLIA [id number] [place] [id number] [place] [facility] Creatinine [Mass/Vol] 0.75 mg/dL Normal 0.58-0.96 [facility] Comment on above: Order Comment: Geraldo marrero Type: BLOOD SPECIMENOrdering Facility: [facility] Address: [address] [place] [address] Performed By: #### 2 777-1, 56913-0, ####[facility] LABORATORYCLIA [id number] [place] [id number] [facility] Creatinine and Glomerular filtration rate.predicted panel (S/P/Bld) 107 mL/min/1.73m??? Normal >=60 [facility] Comment on above: Order Comment: Geraldo marrero Type: BLOOD SPECIMENOrdering Facility: [facility] Address: [address] [place] [address] Result Comment: Jessica mated Glomerular Filtration Rate [...] actual GFR. Performed By: #### 2 777-1, 32920-9, ####[facility] LABORATORYCLIA [id number] [place] [id number] [place] Glucose [Mass/Vol] 81 mg/dL Normal 74-99 [facility] Comment on above: Order Comment: Geraldo marrero Type: BLOOD SPECIMENOrdering Facility: [facility] Address: [address] [place] [address] Result Comment: The [place] Diabetes [employer] (ADA) provides guidance for cutoff [...] Standards of Medical Care in Diabetes 2016, [place] [employer]. Diabetes Care. 2016.39(Suppl 1). Performed By: #### 2 777-1, 47896-1, ####[facility] LABORATORYCLIA [id number] [place] [address] [place] Potassium [Moles/Vol] 3.9 mmol/L Normal 3.7-5.1 [facility] Comment on above: Order Comment: Geraldo marrero Type: BLOOD SPECIMENOrdering Facility: [facility] Address: [address] [place] [address] Performed By: #### 2 777-1, , ####[facility] LABORATORYCLIA [id number] [place] [id number] [place] Sodium [Moles/Vol] 139 mmol/L Normal 136-144 [facility] Comment on above: Order Comment: Geraldo marrero Type: BLOOD SPECIMENOrdering Facility: [facility] Address: [address] [place] [address] Performed By: #### 2 777-1, , ####[facility] LABORATORYCLIA [id number] [place] [id number] [place] Urea nitrogen [Mass/Vol] 6 mg/dL Low 7-21 [facility] Comment on above: Order Comment: [place] men Type: BLOOD SPECIMENOrdering Facility: [facility] Address: [address] [place] [address] Performed By: #### 2 777-1, , ####[facility] LABORATORYCLIA [id number] [place] [id number] [place] CASE MGT INIT ASSESon 2023 CASE MGT INIT ASSES Normal [facility] CBC W Auto Differential pane l (Bld)on 07-19-2023 Basophils (Bld) [#/Vol] 0.04 10*3/uL Normal <0.11 [facility] Comment on above: Order Comment: Speci men Type: BLOOD SPECIMENOrdering Facility: [facility] Address: [address] [place] [address] Performed By: #### 5 7021-8 ####[facility] LABORATORYCLIA [id number] [place] [id number] [place] Basophils/100 WBC (Bld) 1.3 % Normal [facility] Comment on above: Order Comment: Speci men Type: BLOOD SPECIMENOrdering Facility: [facility] Address: [address] [place] [address] Performed By: #### 5 7021-8 ####[facility] LABORATORYCLIA [id number] [place] [address] [place] Differential cell count method Nom (Bld) Auto Normal [facility] Comment on above: Order Comment: Speci men Type: BLOOD SPECIMENOrdering Facility: [facility] Address: [address] [place] [address] Performed By: #### 5 7021-8 ####[facility] LABORATORYCLIA [id number] [place] [address] [place] Eosinophils (Bld) [#/Vol] 0.28 10*3/uL Normal <0.46 [facility] Comment on above: Order Comment: Speci men Type: BLOOD SPECIMENOrdering Facility: [facility] Address: [address] [place] [address] Performed By: #### 5 7021-8 ####[facility] LABORATORYCLIA [id number] [place] [address] [place] Eosinophils/100 WBC (Bld) 9.1 % Normal [facility] Comment on above: Order Comment: Speci men Type: BLOOD SPECIMENOrdering Facility: [facility] Address: [address] [place] [address] Performed By: #### 5 7021-8 ####[facility] LABORATORYCLIA [id number] [place] [id number] [place] Erythrocyte distribution width (RBC) [Ratio] 12.6 % Normal 11.5-15.0 [facility] Comment on above: Order Comment: Speci men Type: BLOOD SPECIMENOrdering Facility: [facility] Address: [address] [place] [address] Performed By: #### 5 7021-8 ####[facility] LABORATORYCLIA [id number] [place] [address] [place] Hematocrit (Bld) [Volume fraction] 29.7 % Low 36.0-46.0 [facility] Comment on above: Order Comment: Speci men Type: BLOOD SPECIMENOrdering Facility: [facility] Address: [address] [place] [address] Performed By: #### 5 7021-8 ####[facility] LABORATORYCLIA [id number] [place] [address] [place] Hemoglobin (Bld) [Mass/Vol] 10.0 g/dL Low 11.5-15.5 [facility] Comment on above: Order Comment: Speci men Type: BLOOD SPECIMENOrdering Facility: [facility] Address: [address] [place] [address] Performed By: #### 5 7021-8 ####[facility] LABORATORYCLIA [id number] [place] [address] [place] Immature granulocytes (Bld) [#/Vol] 10*3/uL Normal <0.10 [facility] Comment on above: Order Comment: Speci men Type: BLOOD SPECIMENOrdering Facility: [facility] Address: [address] [place] [address] Performed By: #### 5 7021-8 ####[facility] LABORATORYCLIA [id number] [place] [address] [place] Immature granulocytes/100 WBC (Bld) 0.3 % Normal [facility] Comment on above: Order Comment: Speci men Type: BLOOD SPECIMENOrdering Facility: [facility] Address: [address] [place] [address] Performed By: #### 5 7021-8 ####[facility] LABORATORYCLIA [id number] [place] [address] [place] Lymphocytes (Bld) [#/Vol] 1.18 10*3/uL Normal 1.00-4.00 [facility] Comment on above: Order Comment: Speci men Type: BLOOD SPECIMENOrdering Facility: [facility] Address: [address] [place] [address] Performed By: #### 5 7021-8 ####[facility] LABORATORYCLIA [id number] [place] [id number] [place] Lymphocytes/100 WBC (Bld) 38.2 % Normal [facility] Comment on above: Order Comment: Speci men Type: BLOOD SPECIMENOrdering Facility: [facility] Address: [address] [place] [address] Performed By: #### 5 7021-8 ####[facility] LABORATORYCLIA [id number] [place] [address] [place] MCH (RBC) [Entitic mass] 29.9 pg Normal 26.0-34.0 [facility] Comment on above: Order Comment: Speci men Type: BLOOD SPECIMENOrdering Facility: [facility] Address: [address] [place] [address] Performed By: #### 5 7021-8 ####[facility] LABORATORYCLIA [id number] [place] [address] [place] MCHC (RBC) [Mass/Vol] 33.7 g/dL Normal 30.5-36.0 [facility] Comment on above: Order Comment: Speci men Type: BLOOD SPECIMENOrdering Facility: [facility] Address: [address] [place] [address] Performed By: #### 5 7021-8 ####[facility] LABORATORYCLIA [id number] [place] [id number] [place] MCV (RBC) [Entitic vol] 88.9 fL Normal 80.0-100.0 [facility] Comment on above: Order Comment: Speci men Type: BLOOD SPECIMENOrdering Facility: [facility] Address: [address] [place] [address] Performed By: #### 5 7021-8 ####[facility] LABORATORYCLIA [id number] [place] [id number] [place] Monocytes (Bld) [#/Vol] 0.26 10*3/uL Normal <0.87 [facility] Comment on above: Order Comment: Speci men Type: BLOOD SPECIMENOrdering Facility: [facility] Address: [address] [place] [address] Performed By: #### 5 7021-8 ####[facility] LABORATORYCLIA [id number] [place] [id number] [place] Monocytes/100 WBC (Bld) 8.4 % Normal [facility] Comment on above: Order Comment: Speci men Type: BLOOD SPECIMENOrdering Facility: [facility] Address: [address] [place] [address] Performed By: #### 5 7021-8 ####[facility] LABORATORYCLIA [id number] [place] [address] [place] Neutrophils (Bld) [#/Vol] 1.32 10*3/uL Low 1.45-7.50 [facility] Comment on above: Order Comment: Speci men Type: BLOOD SPECIMENOrdering Facility: [facility] Address: [address] [place] [address] Performed By: #### 5 7021-8 ####[facility] LABORATORYCLIA [id number] [place] [id number] [place] Neutrophils/100 WBC (Bld) 42.7 % Normal [facility] Comment on above: Order Comment: Speci men Type: BLOOD SPECIMENOrdering Facility: [facility] Address: [address] [place] [address] Performed By: #### 5 7021-8 ####[facility] LABORATORYCLIA [id number] [place] [id number] [place] Nucleated RBC (Bld) [#/Vol] 10*3/uL Normal <0.01 [facility] Comment on above: Order Comment: Speci men Type: BLOOD SPECIMENOrdering Facility: [facility] Address: [address] [place] [address] Performed By: #### 5 7021-8 ####[facility] LABORATORYCLIA [id number] [place] [id number] [place] Nucleated RBC/100 WBC (Bld) [Ratio] 0.0 /100 WBC Normal [facility] Comment on above: Order Comment: Speci men Type: BLOOD SPECIMENOrdering Facility: [facility] Address: [address] [place] [address] Performed By: #### 5 7021-8 ####[facility] LABORATORYCLIA [id number] [place] [address] [place] Platelet mean volume (Bld) [Entitic vol] 10.6 fL Normal 9.0-12.7 [facility] Comment on above: Order Comment: Speci men Type: BLOOD SPECIMENOrdering Facility: [facility] Address: [address] [place] [address] Performed By: #### 5 7021-8 ####[facility] LABORATORYCLIA [id number] [place] [id number] [place] Platelets (Bld) [#/Vol] 210 10*3/uL Normal 150-400 [facility] Comment on above: Order Comment: Speci men Type: BLOOD SPECIMENOrdering Facility: [facility] Address: [address] [place] [address] Performed By: #### 5 7021-8 ####[facility] LABORATORYCLIA [id number] [place] [address] [place] RBC (Bld) [#/Vol] 3.34 10*6/uL Low 3.90-5.20 [facility] Comment on above: Order Comment: Speci men Type: BLOOD SPECIMENOrdering Facility: [facility] Address: [address] [place] [address] Performed By: #### 5 7021-8 ####[facility] LABORATORYCLIA [id number] [place] [id number] [place] WBC (Bld) [#/Vol] 3.09 10*3/uL Low 3.70-11.00 [facility] Comment on above: Order Comment: Speci men Type: BLOOD SPECIMENOrdering Facility: [facility] Address: [address] [place] [address] [place] [id number] Performed By: #### 5 7021-8 ####[facility] LABORATORYCLIA [id number] [place] [id number] [place] Magnesium SerPl-ncon 07-18 Magnesium [Mass/Vol] 2.0 mg/dL Normal 1.7-2.3 [facility] Comment on above: Order Comment: Speci men Type: BLOOD SPECIMENOrdering Facility: [facility] Address: [address] [place], [place] [address] Performed By: #### 2 777-1, 60799-0, ####[facility] LABORATORYCLIA [id number] [place] [id number] [place] NUTRITIONon 07-19-2023 NUTRITION Normal [facility] 07-18 Phosphate [Mass/Vol] 4.3 mg/dL Normal 2.7-4.8 [facility] Comment on above: Order Comment: Speci men Type: BLOOD SPECIMENOrdering Facility: [facility] Address: [address] [place], [place] [address] Performed By: #### 2 777-1, 33569-5, ####[facility] LABORATORYCLIA [id number] [place] [id number] [place] ALLIED HEALTHon 07-18-2023 ALLIED HEALTH Normal [facility] ALLIED HEALTH Normal [facility] Basic metabolic 2000 panelon 07-18-2023 Anion gap [Moles/Vol] 9 mmol/L Normal 9-18 [facility] Comment on above: Order Comment: Speci men Type: BLOOD SPECIMENOrdering Facility: [facility] Address: [address] [place], [place] [address] Performed By: #### 2 777-1, 40521-0, ####[facility] LABORATORYCLIA [id number] [place] [id number] [place] Calcium [Mass/Vol] 8.5 mg/dL Normal 8.5-10.2 [facility] Comment on above: Order Comment: Speci men Type: BLOOD SPECIMENOrdering Facility: [facility] Address: [address] [place] [address] Performed By: #### 2 777-1, 61277-7, ####[facility] LABORATORYCLIA [id number] [place] [id number] [place] Chloride [Moles/Vol] 108 mmol/L High 97-105 [facility] Comment on above: Order Comment: Speci men Type: BLOOD SPECIMENOrdering Facility: [facility] Address: [address] [place] [address] Performed By: #### 2 777-1, 49411-8, ####[facility] LABORATORYCLIA [id number] [place] [id number] [place] CO2 [Moles/Vol] 22 mmol/L Normal 22-30 [facility] Comment on above: Order Comment: Speci men Type: BLOOD SPECIMENOrdering Facility: [facility] Address: [address] [place] [address] Performed By: #### 2 777-1, 00658-8, ####[facility] LABORATORYCLIA [id number] [place] [id number] [place] Creatinine [Mass/Vol] 0.76 mg/dL Normal 0.58-0.96 [facility] Comment on above: Order Comment: Speci men Type: BLOOD SPECIMENOrdering Facility: [facility] Address: [address] [place] [address] Performed By: #### 2 777-1, , ####[facility] LABORATORYCLIA [id number] [place] [id number] [place] Creatinine and Glomerular filtration rate.predicted panel (S/P/Bld) 106 mL/min/1.73m??? Normal >=60 [facility] Comment on above: Order Comment: Speci men Type: BLOOD SPECIMENOrdering Facility: [facility] Address: [address] [place] [address] Result Comment: Jessica mated Glomerular Filtration Rate [...] actual GFR. Performed By: #### 2 777-1, 84694-6, ####[facility] LABORATORYCLIA [id number] [place] [id number] [place] Glucose [Mass/Vol] 80 mg/dL Normal 74-99 [facility] Comment on above: Order Comment: Geraldo marrero Type: BLOOD SPECIMENOrdering Facility: [facility] Address: [address] [place] [address] Result Comment: The [place] [employer] (ADA) provides guidance for cutoff [...] Standards of Medical Care in Diabetes 2016, [place] [employer]. Diabetes Care. 2016.39(Suppl 1). Performed By: #### 2 777-1, , ####[facility] LABORATORYCLIA [id number] [place] [id number] [place] Potassium [Moles/Vol] 4.1 mmol/L Normal 3.7-5.1 [facility] Comment on above: Order Comment: Geraldo marrero Type: BLOOD SPECIMENOrdering Facility: [facility] Address: [address] [place] [address] Performed By: #### 2 777-1, 52805-4, ####[facility] LABORATORYCLIA [id number] [place] [id number] [place] Sodium [Moles/Vol] 139 mmol/L Normal 136-144 [facility] Comment on above: Order Comment: Speci men Type: BLOOD SPECIMENOrdering Facility: [facility] Address: [address] [place] [address] Performed By: #### 2 777-1, 27504-7, ####[facility] LABORATORYCLIA [id number] [place] [id number] [place] Urea nitrogen [Mass/Vol] 7 mg/dL Normal 7-21 [facility] Comment on above: Order Comment: Speci men Type: BLOOD SPECIMENOrdering Facility: [facility] Address: [address] [place] [address] Performed By: #### 2 777-1, , ####[facility] LABORATORYCLIA [id number] [place] [address] [place] CBC W Auto Differential pane l (Bld)on 07-18-2023 Basophils (Bld) [#/Vol] 0.06 10*3/uL Normal <0.11 [facility] Comment on above: Order Comment: Speci men Type: BLOOD SPECIMENOrdering Facility: [facility] Address: [address] [place] [address] Performed By: #### 5 7021-8 ####[facility] LABORATORYCLIA [id number] [place] [address] [place] Basophils/100 WBC (Bld) 1.6 % Normal [facility] Comment on above: Order Comment: Speci men Type: BLOOD SPECIMENOrdering Facility: [facility] Address: [address] [place] [address] Performed By: #### 5 7021-8 ####[facility] LABORATORYCLIA [id number] [place] [address] [place] Differential cell count method Nom (Bld) Auto Normal [facility] Comment on above: Order Comment: Speci men Type: BLOOD SPECIMENOrdering Facility: [facility] Address: [address] [place] [address] Performed By: #### 5 7021-8 ####[facility] LABORATORYCLIA [id number] [place] [address] [place] Eosinophils (Bld) [#/Vol] 0.33 10*3/uL Normal <0.46 [facility] Comment on above: Order Comment: Speci men Type: BLOOD SPECIMENOrdering Facility: [facility] Address: [address] [place] [address] Performed By: #### 5 7021-8 ####[facility] LABORATORYCLIA [id number] [address] [place] Eosinophils/100 WBC (Bld) 8.8 % Normal [facility] Comment on above: Order Comment: Speci men Type: BLOOD SPECIMENOrdering Facility: [facility] Address: [address] [place] [address] Performed By: #### 5 7021-8 ####[facility] LABORATORYCLIA [id number] [address] [place] Erythrocyte distribution width (RBC) [Ratio] 12.9 % Normal 11.5-15.0 [facility] Comment on above: Order Comment: Speci men Type: BLOOD SPECIMENOrdering Facility: [facility] Address: [address] [place] [address] Performed By: #### 5 7021-8 ####[facility] LABORATORYCLIA [id number] [address] [place] Hematocrit (Bld) [Volume fraction] 31.1 % Low 36.0-46.0 [facility] Comment on above: Order Comment: Speci men Type: BLOOD SPECIMENOrdering Facility: [facility] Address: [address] [place], [place] [address] Performed By: #### 5 7021-8 ####[facility] LABORATORYCLIA [id number] [address] [place] Hemoglobin (Bld) [Mass/Vol] 10.2 g/dL Low 11.5-15.5 [facility] Comment on above: Order Comment: Speci men Type: BLOOD SPECIMENOrdering Facility: [facility] Address: [address] [place] [address] Performed By: #### 5 7021-8 ####[facility] LABORATORYCLIA [id number] [place] [id number] [place] Immature granulocytes (Bld) [#/Vol] 10*3/uL Normal <0.10 [facility] Comment on above: Order Comment: Speci men Type: BLOOD SPECIMENOrdering Facility: [facility] Address: [address] [place] [address] Performed By: #### 5 7021-8 ####[facility] LABORATORYCLIA [id number] [address] STATES [facility] Immature granulocytes/100 WBC (Bld) 0.0 % Normal [facility] Comment on above: Order Comment: Speci men Type: BLOOD SPECIMENOrdering Facility: [facility] Address: [address] [place] [address] Performed By: #### 5 7021-8 ####[facility] LABORATORYCLIA [id number] [place] [address] [place] Lymphocytes (Bld) [#/Vol] 1.40 10*3/uL Normal 1.00-4.00 [facility] Comment on above: Order Comment: Speci men Type: BLOOD SPECIMENOrdering Facility: [facility] Address: [address] [place] [address] Performed By: #### 5 7021-8 ####[facility] LABORATORYCLIA [id number] [address] [place] Lymphocytes/100 WBC (Bld) 37.2 % Normal [facility] Comment on above: Order Comment: Speci men Type: BLOOD SPECIMENOrdering Facility: [facility] Address: [address] [place] [address] Performed By: #### 5 7021-8 ####[facility] LABORATORYCLIA [id number] [place] [id number] [place] MCH (RBC) [Entitic mass] 30.4 pg Normal 26.0-34.0 [facility] Comment on above: Order Comment: Speci men Type: BLOOD SPECIMENOrdering Facility: [facility] Address: [address] [place] [address] Performed By: #### 5 7021-8 ####[facility] LABORATORYCLIA [id number] [place] [id number] [place] MCHC (RBC) [Mass/Vol] 32.8 g/dL Normal 30.5-36.0 [facility] Comment on above: Order Comment: Speci men Type: BLOOD SPECIMENOrdering Facility: [facility] Address: [address] [place] [address] Performed By: #### 5 7021-8 ####[facility] LABORATORYCLIA [id number] [place] [id number] [place] MCV (RBC) [Entitic vol] 92.6 fL Normal 80.0-100.0 [facility] Comment on above: Order Comment: Speci men Type: BLOOD SPECIMENOrdering Facility: [facility] Address: [address] [place] [address] Performed By: #### 5 7021-8 ####[facility] LABORATORYCLIA [id number] [place] [address] [place] Monocytes (Bld) [#/Vol] 0.42 10*3/uL Normal <0.87 [facility] Comment on above: Order Comment: Speci men Type: BLOOD SPECIMENOrdering Facility: [facility] Address: [address] [place] [address] Performed By: #### 5 7021-8 ####[facility] LABORATORYCLIA [id number] [place] [id number] [place] Monocytes/100 WBC (Bld) 11.2 % Normal [facility] Comment on above: Order Comment: Speci men Type: BLOOD SPECIMENOrdering Facility: [facility] Address: [address] [place] [address] Performed By: #### 5 7021-8 ####[facility] LABORATORYCLIA [id number] [place] [id number] [place] Neutrophils (Bld) [#/Vol] 1.55 10*3/uL Normal 1.45-7.50 [facility] Comment on above: Order Comment: Speci men Type: BLOOD SPECIMENOrdering Facility: [facility] Address: [address] [place] [address] Performed By: #### 5 7021-8 ####[facility] LABORATORYCLIA [id number] [place] [id number] [place] Neutrophils/100 WBC (Bld) 41.2 % Normal [facility] Comment on above: Order Comment: Speci men Type: BLOOD SPECIMENOrdering Facility: [facility] Address: [address] [place] [address] Performed By: #### 5 7021-8 ####[facility] LABORATORYCLIA [id number] [place] [address] [place] Nucleated RBC (Bld) [#/Vol] 10*3/uL Normal <0.01 [facility] Comment on above: Order Comment: Speci men Type: BLOOD SPECIMENOrdering Facility: [facility] Address: [address] [place] [address] Performed By: #### 5 7021-8 ####[facility] LABORATORYCLIA [id number] [place] [address] [place] Nucleated RBC/100 WBC (Bld) [Ratio] 0.0 /100 WBC Normal [facility] Comment on above: Order Comment: Speci men Type: BLOOD SPECIMENOrdering Facility: [facility] Address: [address] [place] [address] Performed By: #### 5 7021-8 ####[facility] LABORATORYCLIA [id number] [place] [id number] [place] Platelet mean volume (Bld) [Entitic vol] 11.0 fL Normal 9.0-12.7 [facility] Comment on above: Order Comment: Speci men Type: BLOOD SPECIMENOrdering Facility: [facility] Address: [address] [place] [address] Performed By: #### 5 7021-8 ####[facility] LABORATORYCLIA [id number] [place] [id number] [place] Platelets (Bld) [#/Vol] 212 10*3/uL Normal 150-400 [facility] Comment on above: Order Comment: Speci men Type: BLOOD SPECIMENOrdering Facility: [facility] Address: [address] [place] [address] Performed By: #### 5 7021-8 ####[facility] LABORATORYCLIA [id number] [place] [address] [place] RBC (Bld) [#/Vol] 3.36 10*6/uL Low 3.90-5.20 [facility] Comment on above: Order Comment: Speci men Type: BLOOD SPECIMENOrdering Facility: [facility] Address: [address] [place] [address] Performed By: #### 5 7021-8 ####[facility] LABORATORYCLIA [id number] [place] [id number] [place] WBC (Bld) [#/Vol] 3.76 10*3/uL Normal 3.70-11.00 [facility] Comment on above: Order Comment: Speci men Type: BLOOD SPECIMENOrdering Facility: [facility] Address: [address] [place] [address] Performed By: #### 5 7021-8 ####[facility] LABORATORYCLIA [id number] [place] [id number] [place] Magnesium SerPl-mCncon 07-17 Magnesium [Mass/Vol] 1.9 mg/dL Normal 1.7-2.3 [facility] Comment on above: Order Comment: Speci men Type: BLOOD SPECIMENOrdering Facility: [facility] Address: [address] [place] [address] Performed By: #### 2 777-1, 24664-9, 81798-2 ####[facility] LABORATORYCLIA [id number] [place] [id number] [place] Phosphate SerPl-mCncon 07-17 Phosphate [Mass/Vol] 4.7 mg/dL Normal 2.7-4.8 [facility] Comment on above: Order Comment: Speci men Type: BLOOD SPECIMENOrdering Facility: [facility] Address: [address] [place], [place] [address], [place] [address] Performed By: #### 2 777-1, 43146-0, 50399-4 ####[facility] LABORATORYCLIA [id number] [place] [address] [place] XR CHEST 1V FRONTAL PORTon 0 07-18-2023 XR CHEST 1V FRONTAL PORT Normal [facility] XR SMALL BOWEL SERIESon XR SMALL BOWEL SERIES Normal [facility] Capillary blood glucose brie urement by glucometer (mass/volume)Ordered By: Camden Rodriguez on 07-17-2023 Glucose [Mass/Vol] 86 mg/dL Normal [facility] Comment on above: Random Glucose Refer ence Range is dependent on time and content of last meal. Glucose of more than 200 mg/dL in a nonstressed, ambulatory subject supports the diagnosis of Diabetes Mellitus. Result Comment: [place] Glucose Reference Range is dependent on time and content of last meal. Glucose of more than 200 mg/dL in a nonstressed, ambulatory subject supports the diagnosis of Diabetes Mellitus. PERFORMED BY: [address] [place] [address] PATHOLOGIST MULTINEEDLE SHIRRER BAUTISTA BAKER M.D. Performed By: #### G LORE #### Point of Care testing , Glucose Poct Glucometerson 0 07-17-2023 Commemt1 Glu2: Cleaned Meter Normal [facility] Comment on above: Result Comment: PERF ORMED BY: [address] [place] [address] PATHOLOGIST MULTINEEDLE SHIRRER BAUTISTA BAKER M.D. Performed By: #### H EPATIC, MG, LIPASE, CMP, CBC #### [facility] [address] [place] [address] Glucose [Mass/Vol] 90 mg/dL Normal [facility] Comment on above: Result Comment: [place] Glucose Reference Range is dependent on time and content of last meal. Glucose of more than 200 mg/dL in a nonstressed, ambulatory subject supports the diagnosis of Diabetes Mellitus. Performed By: #### H EPATIC, MG, LIPASE, CMP, CBC #### [facility] [address] HISTORY PHYSICALon HISTORY PHYSICAL Normal [facility] NURSING PROGon 07-17-2023 NURSING PROG Normal [facility] No Panel InformationOrdered By: Camden Rodriguez on 07-17-2023 Bedside Glucose Comment Glu2: cleaned meter [facility] Alanine aminotransferase [En zymatic activity/volume] in Serum or PlasmaOrdered By: Shaan Sabillon on 07-16-2023 ALT [Catalytic activity/Vol] 39 U/L Normal 7-52 [facility] Comment on above: Performed By: #### A CORY ELIS, CUU #### [facility] [address] Albumin [Mass/volume] in Ser um or Plasma by Bromocresol green (BCG) dye binding methoOrdered By: Shaan Sabillon on 07-16-2023 Albumin BCG dye [Mass/Vol] 4.3 g/dL 3.5-5.7 [facility] Alkaline phosphatase [Enzyma tic activity/volume] in Serum or PlasmaOrdered By: Shaan Sabillon on 07-16-2023 ALP [Catalytic activity/Vol] 57 U/L Normal 34-104 [facility] Comment on above: Performed By: #### A JOSESITO RAY, CUU #### [address] Aspartate aminotransferase [ Enzymatic activity/volume] in Serum or PlasmaOrdered By: Shaan Sabillon on 07-16-2023 AST [Catalytic activity/Vol] 43 U/L High 13-39 [facility] Comment on above: Performed By: #### A JOSESITO RAY, CUU #### [facility] [address] Automated basophil %Ordered By: Shaan Sabillon on 07-16-2023 Basophils/100 WBC (Bld) 0.7 % Normal . [facility] Comment on above: Performed By: #### A DDFLORECITA CG, CUU #### [place] [address] [place] Automated basophil countOrde red By: Shaan Sabillon on 07-16-2023 Basophils (Bld) [#/Vol] 0.0 10*3/uL Normal 0.0-0.2 [facility] Comment on above: Result Comment: PERF ORMED BY: [place] [address] PATHOLOGIST MULTINEEDLE SHIRRER BAUTISTA BAKER M.D. Performed By: #### A CORY ElroyG, CUU #### [address] Automated blood monocyte cou ntOrdered By: Shaan Sabillon on 07-16-2023 Monocytes (Bld) [#/Vol] 0.3 10*3/uL Normal 0.0-0.8 [facility] Comment on above: Performed By: #### A JOSESITO RAY, CUU #### [address] Automated eosinophil %Ordere d By: Shaan Sabillon on 07-16-2023 Eosinophils/100 WBC (Bld) 0.5 % Normal . [facility] Comment on above: Performed By: #### A JOSESITO RAY, CUU #### [address] Automated eosinophil countOr dered By: Shaan Sabillon on 07-16-2023 Eosinophils (Bld) [#/Vol] 0.0 10*3/uL Normal 0.0-0.45 [facility] Comment on above: Performed By: #### A DDONDAVON, BRITTANIECG, CUU #### [address] Automated monocyte %Ordered By: Shaan Sabillon on 07-16-2023 Monocytes/100 WBC (Bld) 4.5 % Normal . [facility] Comment on above: Performed By: #### A DDFLORECITA, BRITTANIECG, CUU #### [address] Automated neutrophil %Ordere d By: Shaan Sabillon on 07-16-2023 Neutrophils/100 WBC (Bld) 75.6 % Normal . [facility] Comment on above: Performed By: #### A JOSESITO RAY, CUU #### [address] Basic Metabolic Panelon 06-17 Creatinine Clr Calc Pharmacy 117.42 Normal [facility] Comment on above: Performed By: #### A JOSESITO RAY, CUU #### [address] GFR/1.73 sq M.predicted MDRD (S/P/Bld) [Vol rate/Area] mL/min/{1.73_m2} Normal [facility] Comment on above: Performed By: #### A JOSESITO RAY, CUU #### [address] Bilirubin Test strip Ql (U)O rdered By: Shaan Sabillon on 07-16-2023 Bilirubin Ql (U) Negative Negative [facility] Bilirubin.direct [Mass/volum e] in Serum or PlasmaOrdered By: Shaan Sabillon on 07-16-2023 Bilirubin.direct [Mass/Vol] 0.10 mg/dL 0.03-0.18 [facility] Bilirubin.total [Mass/volume ] in Serum or PlasmaOrdered By: Shaan Sabillon on 07-16-2023 Bilirubin [Mass/Vol] 0.6 mg/dL Normal 0.3-1.0 [facility] Comment on above: Performed By: #### A CORY, JOSESITO, CUU #### [address] abdomen pelvis w conon CT abdomen pelvis w [facility] [place] [address] [place] [address] CT Scan Report Signed Patient: Abbey Garcia MR#: [id number] : 1990 Acct:[id number] Age/Sex: 33 / F ADM Date: 07/16/23 Loc: ER Room: Type: [facility] ER Attending Dr: Copies to: Shaan [...] Medel Jr., D.ORenetta07/16/2023 4:09 PM Dictation Location: [place] [address] Transcribed By: [facility] 07/16/23 1609 Dictated By: Cornel Medel Jr, DO 07/16/23 1606 Signed By: 07/16/23 1609 Normal [facility] Calcium [Mass/volume] in Ser um or PlasmaOrdered By: Shaan Sabillon on 07-16-2023 Calcium [Mass/Vol] 8.9 mg/dL Normal 8.6-10.3 [facility] Comment on above: Performed By: #### A CORY, ELIS, JERONIMOU #### [place] [address] Carbon dioxide, total [Moles /volume] in Serum or PlasmaOrdered By: Shaan Sabillon on 07-16-2023 CO2 [Moles/Vol] 24.2 mmol/L Normal 21.0-31.0 [facility] Comment on above: Performed By: #### A DDONUAPLUS, UHCG, CUU #### [address] Chloride [Moles/volume] in S elder or PlasmaOrdered By: Shaan Sabillon on 07-16-2023 Chloride [Moles/Vol] 107 mmol/L Normal 98-107 [facility] Comment on above: Performed By: #### A DDONUAPLUS, UHCG, CUU #### [address] Color of Urine by AutoOrdere d By: Shaan Sabillon on 07-16-2023 Color (U) Yellow Normal Yellow [facility] Comment on above: Order Comment: Name Collection Type:: Clean-Voided Midstream Performed By: #### A DDONUAPLUS, UHCG, CUU #### [address] Complete Blood Count Auto Di ffon 07-16-2023 Mean Corpuscular HGB Conc 34.2 g/dL Normal 32.0-35.0 [facility] Comment on above: Performed By: #### A DDONUAPLUS, UHCG, CUU #### [place] [address] [place] Monocytes/100 WBC (Bld) 16.79 % Normal 0.00-20.00 [facility] Comment on above: Performed By: #### A DDONUAPLUS, UHCG, CUU #### [place] [address] [place] NRBC% 0.0 /100{WBC} Normal 0-0.5 [facility] Comment on above: Performed By: #### A DDONUAPLUS, UHCG, CUU #### [place] [address] Creatinine [Mass/volume] in Serum or PlasmaOrdered By: Shaan Sabillon on 07-16-2023 Creatinine [Mass/Vol] 0.72 mg/dL Normal 0.60-1.20 [facility] Comment on above: Performed By: #### A DDONUAPLUS, UHCG, CUU #### [address] Erythrocyte distribution wid th [Ratio] by Automated countOrdered By: Shaan Sabillon on 07-16-2023 Erythrocyte distribution width (RBC) [Ratio] 14.4 % Normal 11.9-15.3 [facility] Comment on above: Performed By: #### A DDONUAPLUS, UHCG, CUU #### [address] Erythrocytes [#/volume] in B lood by Automated countOrdered By: Shaan Sabillon on 07-16-2023 RBC (Bld) [#/Vol] 3.67 10*6/uL Normal 3.60-5.00 [facility] Comment on above: Performed By: #### A DDONUAPLUS, UHCG, CUU #### [address] Glucose [Mass/volume] in Ser um or PlasmaOrdered By: Shaan Sabillon on 07-16-2023 Glucose [Mass/Vol] 82 mg/dL Normal 70-100 [facility] Comment on above: ADA recommended refe rence rangeRandom Glucose Reference Range is dependent on time and content of last meal. Glucose of more than 200 mg/dL in a nonstressed, ambulatory subject supports the diagnosis of Diabetes Mellitus. Result Comment: [place] Glucose Reference Range is dependent on time and content of last meal. Glucose of more than 200 mg/dL in a nonstressed, ambulatory subject supports the diagnosis of Diabetes Mellitus. ADA recommended reference range Performed By: #### A DDONUAPLUS, UHCG, CUU #### [address] HCG ( test) IA.rapi d Ql (U)Ordered By: Shaan Sabillon on 07-16-2023 HCG ( test) Ql (U) Negative [facility] HCG,Urineon 07-16-2023 Beta HCG ( test) Ql (U) Negative Normal [facility] Comment on above: Order Comment: Name Collection Type:: Clean-Voided Midstream Result Comment: PERF ORMED BY: [place] [address] PATHOLOGIST MULTINEEDLE SHIRRER BAUTISTA BAKER M.D. Performed By: #### A DDONUAPLUS, UHCG, CUU #### [address] Hematocrit [Volume Fraction] of Blood by Automated countOrdered By: Shaan Sabillon on 07-16-2023 Hematocrit (Bld) [Volume fraction] 32.8 % Low 34.0-46.4 [facility] Comment on above: Performed By: #### A DDONUAPLUS, UHCG, CUU #### [address] Hemoglobin [Mass/volume] in BloodOrdered By: Shaan Sabillon on 07-16-2023 Hemoglobin (Bld) [Mass/Vol] 11.2 g/dL Low 11.8-15.4 [facility] Comment on above: Performed By: #### A DDONUAPLUS, UHCG, CUU #### [address] Hepatic Panelon 07-16-2023 Albumin [Mass/Vol] 4.3 g/dL Normal 3.5-5.7 [facility] Comment on above: Performed By: #### A DDONUAPLUS, UHCG, CUU #### [place] [address] [place] Bilirubin,Indirect 0.5 mg/dL Normal [facility] Comment on above: Performed By: #### A DDONUAPLUS, UHCG, CUU #### [address] Bilirubin.indirect [Mass/Vol] 0.10 mg/dL Normal 0.03-0.18 [facility] Comment on above: Performed By: #### A JOSESITO RAY, CUU #### [address] Ketones Auto test strip (U) [Mass/Vol]Ordered By: Shaan Sabillon on 07-16-2023 Ketones (U) [Mass/Vol] Negative Negative [facility] Leukocytes [#/volume] correc darvin for nucleated erythrocytes in Blood by Automated counOrdered By: Shaan Sabillon on 07-16-2023 WBC corrected for nucl RBC Auto (Bld) [#/Vol] 6.9 10*3/uL 3.8-11.6 [facility] Leukocytes [#/volume] in Blo od by Automated countOrdered By: Shaan Sabillon on 07-16-2023 WBC (Bld) [#/Vol] 6.9 10*3/uL Normal 3.8-11.6 [facility] Comment on above: Performed By: #### A JOSESITO RAY, CUU #### [address] Lipase [Enzymatic activity/v olume] in Serum or PlasmaOrdered By: Shaan Sabillon on 07-16-2023 Lipase [Catalytic activity/Vol] 45.0 U/L Normal 11.0-82.0 [facility] Comment on above: Result Comment: PERF ORMED BY: [place] [address] PATHOLOGIST MULTINEEDLE SHIRRER BAUTISTA BAKER M.D. Performed By: #### A CORY ELIS, CUU #### [place] [address] [place] Lymphocytes [#/volume] in Bl ood by Automated countOrdered By: Shaan Sabillon on 07-16-2023 Lymphocytes (Bld) [#/Vol] 1.3 10*3/uL Normal 1.00-4.8 [facility] Comment on above: Performed By: #### A CORY ELIS, CUU #### [address] Lymphocytes/100 leukocytes i n Blood by Automated countOrdered By: Shaan Sabillon on 07-16-2023 Lymphocytes/100 WBC (Bld) 18.7 % Normal . [facility] Comment on above: Performed By: #### A JOSESITO RAY, CUU #### [address] MCH [Entitic mass] by Automa darvin countOrdered By: Shaan Sabillon on 07-16-2023 MCH (RBC) [Entitic mass] 30.5 pg Normal 24.7-34.3 [facility] Comment on above: Performed By: #### A JOSESITO RAY, CUU #### [address] MCHC Auto (RBC) [Mass/Vol]Or dered By: Shaan Sabillon on 07-16-2023 MCHC (RBC) [Mass/Vol] 34.2 g/dL 32.0-35.0 [facility] MCV [Entitic volume] by Auto mated countOrdered By: Shaan Sabillon on 07-16-2023 MCV (RBC) [Entitic vol] 89.2 fL Normal 80-100 [facility] Comment on above: Performed By: #### A JOSESITO RAY, CUU #### [address] Monocyte distribution width [Entitic volume] in Blood by AutomatedOrdered By: Shaan Sabillon on 07-16-2023 Monocyte distribution width Auto (Bld) [Entitic vol] 16.79 % 0.00-20.00 [facility] Neutrophils [#/volume] in Bl ood by Automated countOrdered By: Shaan Sabillon on 07-16-2023 Neutrophils (Bld) [#/Vol] 5.2 10*3/uL Normal 1.8-7.7 [facility] Comment on above: Performed By: #### A CORY, ALIYAHG, CUU #### [address] Nitrite Test strip Ql (U)Ord ered By: Shaan Sabillon on 07-16-2023 Nitrite Ql (U) Negative Negative [facility] No Panel InformationOrdered By: Shaan Sabillon on 07-16-2023 Estimated GFR (CKD-EPI) > 60.0 mL/Min [facility] Creatinine Clearance (Chem 117.42 [facility] Nucleated erythrocytes [Pres ence] in Blood by Automated countOrdered By: Shaan Sabillon on 07-16-2023 Nucleated RBC Auto Ql (Bld) 0.0 /100{WBC} 0-0.5 [facility] Platelet mean volume [Entiti c volume] in Blood by Automated countOrdered By: Shaan Sabillon on 07-16-2023 Platelet mean volume (Bld) [Entitic vol] 9.0 fL Normal 6.3-10.7 [facility] Comment on above: Performed By: #### A CORY, [facility], CUU #### [facility] [address] [place] [address] [place] Platelets [#/volume] in Bloo d by Automated countOrdered By: Shaan Sabillon on 07-16-2023 Platelets (Bld) [#/Vol] 282 10*3/uL Normal 150-450 [facility] Comment on above: Performed By: #### A CORY, [facility], CUU #### [facility] [address] [place] [address] Potassium [Moles/volume] in Serum or PlasmaOrdered By: Shaan Sabillon on 07-16-2023 Potassium [Moles/Vol] 3.7 mmol/L Normal 3.5-5.1 [facility] Comment on above: Performed By: #### A CORY, [facility], CUU #### [facility] [address] Protein Auto test strip (U) [Mass/Vol]Ordered By: Shaan Sabillon on 07-16-2023 Protein (U) [Mass/Vol] Negative Negative [facility] Protein [Mass/volume] in Ser um or PlasmaOrdered By: Shaan Sabillon on 07-16-2023 Protein [Mass/Vol] 6.8 g/dL Normal 6.4-8.9 [facility] Comment on above: Performed By: #### A JOSESITO RAY, CUU #### [address] Serum globulin measurement b y calculation (mass/volume)Ordered By: Shaan Sabillon on 07-16-2023 Globulin (S) [Mass/Vol] 2.5 g/dL Normal [facility] Comment on above: Performed By: #### A JOSESITO RAY, CUU #### [address] Serum or plasma albumin/glob ulin mass ratioOrdered By: Shaan Sabillon on 07-16-2023 Albumin/Globulin [Mass ratio] 1.7 {ratio} [facility] Comment on above: Performed By: #### A JOSESITO RAY, CUU #### [address] Serum or plasma anion gap de terminationOrdered By: Shaan Sabillon on 07-16-2023 Anion gap [Moles/Vol] 9.5 mmol/L Normal 6.0-15.0 [facility] Comment on above: Performed By: #### A JOSESITO RAY, CUU #### [address] Serum or plasma non-glucuron idated bilirubin measurement (mass/volume)Ordered By: Shaan Sabillon on 07-16-2023 Bilirubin.indirect [Mass/Vol] 0.5 mg/dL [facility] Sodium [Moles/volume] in Ser um or PlasmaOrdered By: Shaan Sabillon on 07-16-2023 Sodium [Moles/Vol] 137 mmol/L Normal 136-145 [facility] Comment on above: Performed By: #### A JOSESITO RAY, CUU #### [address] Specific gravity Auto test s trip (U) [Rel density]Ordered By: Shaan Sabillon on 07-16-2023 Specific gravity (U) [Rel density] 1.006 1.001-1.030 [facility] Urea nitrogen [Mass/volume] in Serum or PlasmaOrdered By: Shaan Sabillon on 07-16-2023 Urea nitrogen [Mass/Vol] 14 mg/dL Normal 7-25 [facility] Comment on above: Performed By: #### A DDONUAPLUS, UHCG, CUU #### [facility] [address] Urinalysison 07-16-2023 Appearance (U) Clear Normal Clear [facility] Comment on above: Order Comment: Name Collection Type:: Clean-Voided Midstream Performed By: #### A DDONUAPLUS, UHCG, CUU #### [address] Bilirubin,Urine Negative Normal Negative [facility] [place] [facility] Comment on above: Order Comment: Name Collection Type:: Clean-Voided Midstream Performed By: #### A DDONUAPLUS, UHCG, CUU #### [address] Glucose Ql (U) Normal Normal Normal [facility] Comment on above: Order Comment: Name Collection Type:: Clean-Voided Midstream Performed By: #### A DDONUAPLUS, UHCG, CUU #### [address] Ketones Ql (U) Negative Normal Negative [facility] Comment on above: Order Comment: Name Collection Type:: Clean-Voided Midstream Performed By: #### A DDONUAPLUS, UHCG, CUU #### [place] [address] [place] Leukocyte esterase Test strip Ql (U) Negative Normal Negative [facility] Comment on above: Order Comment: Name Collection Type:: Clean-Voided Midstream Performed By: #### A DDONUAPLUS, UHCG, CUU #### [place] [address] [place] Nitrite,Urine Negative Normal Negative [facility] Comment on above: Order Comment: Name Collection Type:: Clean-Voided Midstream Performed By: #### A DDONUAPLUS, UHCG, CUU #### [place] [address] [place] Occult Blood,Urine Negative Normal Negative [facility] Comment on above: Order Comment: Name Collection Type:: Clean-Voided Midstream Performed By: #### A DDONUAPLUS, UHCG, CUU #### [place] [address] [place] Protein,Urine Negative Normal Negative [facility] Comment on above: Order Comment: Name Collection Type:: Clean-Voided Midstream Performed By: #### A DDONUAPLUS, UHCG, CUU #### [address] Specificy Arjay,Urine 1.006 Normal 1.001-1.030 [facility] Comment on above: Order Comment: Name Collection Type:: Clean-Voided Midstream Performed By: #### A DDONUAPLUS, UHCG, CUU #### [place] [address] [place] Urobilinogen,Urine Normal Normal Normal [facility] Comment on above: Order Comment: Name Collection Type:: Clean-Voided Midstream Performed By: #### A DDONUAPLUS, UHCG, CUU #### [address] Urine clarity by refractomet ry automatedOrdered By: Shaan Sabillon on 07-16-2023 Clarity Refractometry automated (U) Clear Clear [facility] Urine glucose measurement by automated test strip (mass/volume)Ordered By: Shaan Sabillon on 07-16-2023 Glucose Auto test strip (U) [Mass/Vol] Normal mg/dL Normal [facility] Urine hemoglobin detection b y automated test stripOrdered By: Shaan Sabillon on 07-16-2023 Hemoglobin Auto test strip Ql (U) Negative Negative [facility] Urine leukocyte esterase det ection by automated test stripOrdered By: Shaan Sabillon on 07-16-2023 Leukocyte esterase Auto test strip Ql (U) Negative Negative [facility] Urine pH measurement by auto mated test stripOrdered By: Shaan Sabillon on 07-16-2023 pH (U) 7.5 [pH] Normal 5.0-9.0 [facility] Comment on above: Order Comment: Name Collection Type:: Clean-Voided Midstream Performed By: #### A DDONUAPLUS, UHCG, CUU #### [facility] [address] Urobilinogen Auto test strip (U) [Mass/Vol]Ordered By: Shaan Sabillon on 07-16-2023 Urobilinogen (U) [Mass/Vol] Normal mg/dL Normal [facility] CNPNon 07-13-2023 CNPN Normal [facility] Basic metabolic 2000 panelon 07-06-2023 Anion gap [Moles/Vol] 11 mmol/L Normal 9-18 [facility] Comment on above: Order Comment: Speci men Type: BLOOD SPECIMENOrdering Facility: [facility] Address: [address] [place] [address] Performed By: #### 2 4321-2 ####[facility] LABIA [id number] [place] [address] [place] Calcium [Mass/Vol] 8.7 mg/dL Normal 8.5-10.2 [facility] Comment on above: Order Comment: Speci men Type: BLOOD SPECIMENOrdering Facility: [facility] Address: [address] [place] [address] Performed By: #### 2 4321-2 ####[facility] LABCLIA [id number] [place] [address] [place] Chloride [Moles/Vol] 110 mmol/L High 97-105 [facility] Comment on above: Order Comment: Speci men Type: BLOOD SPECIMENOrdering Facility: [facility] Address: [address] [place] [place] [id number] Performed By: #### 2 4321-2 ####[facility] LABCLIA [id number] [place] [id number] [place] CO2 [Moles/Vol] 20 mmol/L Low 22-30 [facility] Comment on above: Order Comment: Speci men Type: BLOOD SPECIMENOrdering Facility: [facility] Address: [address] [place] [address] Performed By: #### 2 4321-2 ####[facility] LABCLIA [id number] [place] [address] [place] Creatinine [Mass/Vol] 0.64 mg/dL Normal 0.58-0.96 [facility] Comment on above: Order Comment: Speci men Type: BLOOD SPECIMENOrdering Facility: [facility] Address: [address] [place] [address] Performed By: #### 2 4321-2 ####[facility] LABCLIA [id number] [address] STATES OF [facility] Creatinine and Glomerular filtration rate.predicted panel (S/P/Bld) 119 mL/min/1.73m??? Normal >=60 [facility] Comment on above: Order Comment: Speci men Type: BLOOD SPECIMENOrdering Facility: [facility] Address: [address] [place] [address] Result Comment: Jessica mated Glomerular Filtration Rate [...] actual GFR. Performed By: #### 2 4321-2 ####[facility] LABCLIA [id number] [place] [address] [place] Glucose [Mass/Vol] 89 mg/dL Normal 74-99 [facility] Comment on above: Order Comment: Speci men Type: BLOOD SPECIMENOrdering Facility: [facility] Address: [address] [place] [address] Result Comment: The [place] [employer] (ADA) provides guidance for cutoff [...] Standards of Medical Care in Diabetes 2016, [place] [employer]. Diabetes Care. 2016.39(Suppl 1). Performed By: #### 2 4321-2 ####[facility] LABCLIA [id number] [place] [address] [place] Potassium [Moles/Vol] 3.9 mmol/L Normal 3.7-5.1 [facility] Comment on above: Order Comment: Speci men Type: BLOOD SPECIMENOrdering Facility: [facility] Address: [address] [place] [address] Performed By: #### 2 4321-2 ####[facility] LABIA [id number] [place] [address] [place] Sodium [Moles/Vol] 141 mmol/L Normal 136-144 [facility] Comment on above: Order Comment: Speci men Type: BLOOD SPECIMENOrdering Facility: [facility] Address: [address] [place] [address] Performed By: #### 2 4321-2 ####[facility] LABCLIA [id number] [place] [address] [place] Urea nitrogen [Mass/Vol] 14 mg/dL Normal 7-21 [facility] Comment on above: Order Comment: Speci men Type: BLOOD SPECIMENOrdering Facility: [facility] Address: [address] [place] [address] Performed By: #### 2 4321-2 ####[facility] LABCLIA [id number] [place] [address] [place] CBC W Auto Differential pane l (Bld)on 07-06-2023 Basophils (Bld) [#/Vol] 10*3/uL Normal <0.11 [facility] Comment on above: Order Comment: Speci men Type: BLOOD SPECIMENOrdering Facility: [facility] Address: [address] [place] [address] Performed By: #### 5 7021-8 ####[facility] LABCLIA [id number] [place] [address] [place] Basophils/100 WBC (Bld) 0.5 % Normal [facility] Comment on above: Order Comment: Speci men Type: BLOOD SPECIMENOrdering Facility: [facility] Address: [address] [place] [address] Performed By: #### 5 7021-8 ####[facility] LABCLIA [id number] [place] [address] [place] Differential cell count method Nom (Bld) Auto Normal [facility] Comment on above: Order Comment: Speci men Type: BLOOD SPECIMENOrdering Facility: [facility] Address: [address] [place] [address] Performed By: #### 5 7021-8 ####[facility] LABCLIA [id number] [place] [address] [place] Eosinophils (Bld) [#/Vol] 10*3/uL Normal <0.46 [facility] Comment on above: Order Comment: Speci men Type: BLOOD SPECIMENOrdering Facility: [facility] Address: [address] [place] [address] Performed By: #### 5 7021-8 ####[facility] LABCLIA [id number] [place] [address] [place] Eosinophils/100 WBC (Bld) 0.2 % Normal [facility] Comment on above: Order Comment: Speci men Type: BLOOD SPECIMENOrdering Facility: [facility] Address: [address] [place] [address] Performed By: #### 5 7021-8 ####[facility] LABIA [id number] [place] [address] [place] Erythrocyte distribution width (RBC) [Ratio] 14.0 % Normal 11.5-15.0 [facility] Comment on above: Order Comment: Speci men Type: BLOOD SPECIMENOrdering Facility: [facility] Address: [address] [place] [address] Performed By: #### 5 7021-8 ####[facility]IA [id number] [place] [address] [place] Hematocrit (Bld) [Volume fraction] 30.6 % Low 36.0-46.0 [facility] Comment on above: Order Comment: Speci men Type: BLOOD SPECIMENOrdering Facility: [facility] Address: [address] [place] [address] Performed By: #### 5 7021-8 ####[facility]IA [id number] [place] [address] [place] Hemoglobin (Bld) [Mass/Vol] 10.5 g/dL Low 11.5-15.5 [facility] Comment on above: Order Comment: Speci men Type: BLOOD SPECIMENOrdering Facility: [facility] Address: [address] [place] [address] Performed By: #### 5 7021-8 ####[facility] LABIA [id number] [place] [address] [place] Immature granulocytes (Bld) [#/Vol] 10*3/uL Normal <0.10 [facility] Comment on above: Order Comment: Speci men Type: BLOOD SPECIMENOrdering Facility: [facility] Address: [address] [place] [address] Performed By: #### 5 7021-8 ####[facility] LABCLIA [id number] [place] [address] [place] Immature granulocytes/100 WBC (Bld) 0.2 % Normal [facility] Comment on above: Order Comment: Speci men Type: BLOOD SPECIMENOrdering Facility: [facility] Address: [address] [place] [address] Performed By: #### 5 7021-8 ####[facility] LABCLIA [id number] [place] [address] [place] Lymphocytes (Bld) [#/Vol] 1.37 10*3/uL Normal 1.00-4.00 [facility] Comment on above: Order Comment: Speci men Type: BLOOD SPECIMENOrdering Facility: [facility] Address: [address] [place] [address] Performed By: #### 5 7021-8 ####[facility] LABCLIA [id number] [place] [address] [place] Lymphocytes/100 WBC (Bld) 31.2 % Normal [facility] Comment on above: Order Comment: Speci men Type: BLOOD SPECIMENOrdering Facility: [facility] Address: [address] [place] [address] Performed By: #### 5 7021-8 ####[facility] LABCLIA [id number] [place] [address] [place] MCH (RBC) [Entitic mass] 31.3 pg Normal 26.0-34.0 [facility] Comment on above: Order Comment: Speci men Type: BLOOD SPECIMENOrdering Facility: [facility] Address: [address] [place] [address] Performed By: #### 5 7021-8 ####[facility] LABCLIA [id number] [place] [address] [place] MCHC (RBC) [Mass/Vol] 34.3 g/dL Normal 30.5-36.0 [facility] Comment on above: Order Comment: Speci men Type: BLOOD SPECIMENOrdering Facility: [facility] Address: [address] [place] [address] Performed By: #### 5 7021-8 ####[facility] LABIA [id number] [place] [address] [place] MCV (RBC) [Entitic vol] 91.1 fL Normal 80.0-100.0 [facility] Comment on above: Order Comment: Speci men Type: BLOOD SPECIMENOrdering Facility: [facility] Address: [address] [place] [address] Performed By: #### 5 7021-8 ####[facility]IA [id number] [place] [address] [place] Monocytes (Bld) [#/Vol] 0.36 10*3/uL Normal <0.87 [facility] Comment on above: Order Comment: Speci men Type: BLOOD SPECIMENOrdering Facility: [facility] Address: [address] [place] [address] Performed By: #### 5 7021-8 ####[facility]IA [id number] [place] [address] [place] Monocytes/100 WBC (Bld) 8.2 % Normal [facility] Comment on above: Order Comment: Speci men Type: BLOOD SPECIMENOrdering Facility: [facility] Address: [address] [place] [address] Performed By: #### 5 7021-8 ####[facility] LABCLIA [id number] [place] [address] [place] Neutrophils (Bld) [#/Vol] 2.62 10*3/uL Normal 1.45-7.50 [facility] Comment on above: Order Comment: Speci men Type: BLOOD SPECIMENOrdering Facility: [facility] Address: [address] [place] [address] Performed By: #### 5 7021-8 ####[facility] LABCLIA [id number] [place] [address] [place] Neutrophils/100 WBC (Bld) 59.7 % Normal [facility] Comment on above: Order Comment: Speci men Type: BLOOD SPECIMENOrdering Facility: [facility] Address: [address] [place] [address] Performed By: #### 5 7021-8 ####[facility] LABCLIA [id number] [place] [address] [place] Nucleated RBC (Bld) [#/Vol] 10*3/uL Normal <0.01 [facility] Comment on above: Order Comment: Speci men Type: BLOOD SPECIMENOrdering Facility: [facility] Address: [address] [place] [address] Performed By: #### 5 7021-8 ####[facility]IA [id number] [place] [address] [place] Nucleated RBC/100 WBC (Bld) [Ratio] 0.0 /100 WBC Normal [facility] Comment on above: Order Comment: Speci men Type: BLOOD SPECIMENOrdering Facility: [facility] Address: [address] [place] [address] Performed By: #### 5 7021-8 ####[facility]IA [id number] [place] [address] [place] Platelet mean volume (Bld) [Entitic vol] 11.2 fL Normal 9.0-12.7 [facility] Comment on above: Order Comment: Speci men Type: BLOOD SPECIMENOrdering Facility: [facility] Address: [address] [place] [address] Performed By: #### 5 7021-8 ####[facility] LABIA [id number] [place] [address] [place] Platelets (Bld) [#/Vol] 219 10*3/uL Normal 150-400 [facility] Comment on above: Order Comment: Speci men Type: BLOOD SPECIMENOrdering Facility: [facility] Address: [address] [place] [address] Performed By: #### 5 7021-8 ####[facility] LABCLIA [id number] [place] [address] [place] RBC (Bld) [#/Vol] 3.36 10*6/uL Low 3.90-5.[address] [facility] Comment on above: Order Comment: Speci men Type: BLOOD SPECIMENOrdering Facility: [facility] Address: [address] [place] [address] Performed By: #### 5 7021-8 ####[facility] LABCLIA [id number] [place] [address] [place] WBC (Bld) [#/Vol] 4.39 10*3/uL Normal 3.70-11.[address] [facility] Comment on above: Order Comment: Speci men Type: BLOOD SPECIMENOrdering Facility: [facility] Address: [address] [place] [address] Performed By: #### 5 7021-8 ####[facility] LABCLIA [id number] [place] [address] [place] CNOVon 07-06-2023 CNOV Normal [facility] CNPTOUTREACHon 07-06-2023 CNPTOUTREACH Normal [facility] CT FLANK WO IVCONon 07-06-19 CT FLANK WO IVCON Normal [facility] ED NOTEon 07-06-2023 ED NOTE Normal [facility] ED NOTE HNO ID: [id number] Author: TG MUNOZ, RN Service: Emergency Medicine Author Type: Registered Nurse Type: ED Notes Filed: 07/06/2023 20:35 Note Text: 0 mL post void residual. Normal [facility] ED NOTE HNO ID: [id number] Author: CORIE LINK RN Service: ? Author Type: Registered Nurse Type: ED Notes Filed: 07/06/2023 15:58 Note Text: Bed: E18-10 Expected date: Expected time: Means of arrival: Comments: HOLD: JOSE Normal [facility] ED PROV NOTEon 07-06-2023 ED PROV NOTE Normal [facility] ED Triage Noteon 07-06-2023 ED Triage Note Normal [facility] URINALYSIS, REFLEX MICROSCOP ICon 07-06-2023 Bilirubin Ql (U) Negative Negative [facility] Clarity (Unsp spec) Clear Clear [facility] Color (U) Light Yellow Yellow [facility] Glucose Test strip (U) [Mass/Vol] Negative Trace, Negative [facility] Hemoglobin Ql (U) Negative Negative, Trace Cl [facility] Interpretation and review of laboratory results Normal [facility] Ketones Ql (U) Negative Negative, Trace [facility] Leukocyte esterase Test strip Ql (U) Negative Negative, 25 Patito/uL [facility] Nitrite Ql (U) Negative Negative [facility] pH (U) 7.0 [pH] 5.0 - 8.0 [facility] Protein (U) [Mass/Vol] Negative Trace, Negative [facility] Specific gravity (U) [Rel density] 1.010 1.005 - 1.030 [facility] Urobilinogen Ql (U) Normal Normal [facility] Bilirubin Ql (U) Negative Normal Negative [facility] Comment on above: Order Comment: Speci men Type: URINE SPECIMENOrdering Facility: [facility] Address: [address] [place] [address] Performed By: #### L [id number] ####[facility] LABCLIA [id number] [address] [place] Clarity (Unsp spec) Clear Normal Clear [facility] Comment on above: Order Comment: Speci men Type: URINE SPECIMENOrdering Facility: [facility] Address: [address] [place] [address] Performed By: #### L [id number] ####[facility] LABIA [id number] [place] [address] [place] Color (U) Light Yellow Normal Yellow [facility] Comment on above: Order Comment: Speci men Type: URINE SPECIMENOrdering Facility: [facility] Address: [address] [place] [address] Performed By: #### L [id number] ####[facility] LABCLIA [id number] [place] [address] [place] Glucose Test strip (U) [Mass/Vol] Negative Normal Trace, Negative [facility] Comment on above: Order Comment: Speci men Type: URINE SPECIMENOrdering Facility: [facility] Address: [address] [place] [address] Performed By: #### L [id number] ####[facility] LABCLIA [id number] [place] [address] [place] Hemoglobin Ql (U) Negative Normal Negative, Trace Cl [facility] Comment on above: Order Comment: Speci men Type: URINE SPECIMENOrdering Facility: [facility] Address: [address] [place] [address] Performed By: #### L [id number] ####[facility] LABCLIA [id number] [place] [address] [place] Ketones Ql (U) Negative Normal Negative, Trace [facility] Comment on above: Order Comment: Speci men Type: URINE SPECIMENOrdering Facility: [facility] Address: [address] [place] [address] Performed By: #### L [id number] ####[facility] LABCLIA [id number] [place] [address] [place] Leukocyte esterase Test strip Ql (U) Negative Normal Negative, 25 Patito/uL [facility] Comment on above: Order Comment: Speci men Type: URINE SPECIMENOrdering Facility: [facility] Address: [address] [place] [address] Performed By: #### L [id number] ####[facility] LABCLIA [id number] [place] [address] [place] Nitrite Ql (U) Negative Normal Negative [facility] Comment on above: Order Comment: Speci men Type: URINE SPECIMENOrdering Facility: [facility] Address: [address] [place] [address] Performed By: #### L [id number] ####[facility] LABCLIA [id number] [place] [address] [place] pH (U) 7.0 [pH] Normal 5.0-8.0 [facility] Comment on above: Order Comment: Speci men Type: URINE SPECIMENOrdering Facility: [facility] Address: [address] [place] [address] Performed By: #### L [id number] ####[facility]IA [id number] [place] [address] [place] Protein (U) [Mass/Vol] Negative Normal Trace, Negative [facility] Comment on above: Order Comment: Speci men Type: URINE SPECIMENOrdering Facility: [facility] Address: [address] [place] [address] Performed By: #### L [id number] ####[facility]IA [id number] [place] [address] [place] Specific gravity (U) [Rel density] 1.010 Normal 1.005-1.030 [facility] Comment on above: Order Comment: Speci men Type: URINE SPECIMENOrdering Facility: [facility] Address: [address] [place] [address] Performed By: #### L [id number] ####[facility]IA [id number] [place] [address] [place] Urobilinogen Ql (U) Normal Normal Normal [facility] Comment on above: Order Comment: Speci men Type: URINE SPECIMENOrdering Facility: [facility] Address: [address] [place] [address] Performed By: #### L [id number] ####[facility] LABCLIA [id number] [place] [address] [place] Urinalysis complete panel (U )on 07-06-2023 Bacteria LM.HPF (Urine sed) [#/Area] Negative Normal Negative [facility] Comment on above: Order Comment: Speci men Type: URINE SPECIMENOrdering Facility: [facility] Address: [address] [place] [address] Performed By: #### 2 4356-8 ####[facility] LABCLIA [id number] [place] [address] [place] Bilirubin Ql (U) Negative Normal Negative [facility] Comment on above: Order Comment: Speci men Type: URINE SPECIMENOrdering Facility: [facility] Address: [address] [place] [address] Performed By: #### 2 4356-8 ####[facility] LABCLIA [id number] [place] [address] [place] Clarity (Unsp spec) Clear Normal Clear [facility] Comment on above: Order Comment: Speci men Type: URINE SPECIMENOrdering Facility: [facility] Address: [address] [place] [address] Performed By: #### 2 4356-8 ####[facility] LABCLIA [id number] [place] [address] [place] [facility] Color (U) Yellow Normal Yellow [facility] Comment on above: Order Comment: Speci men Type: URINE SPECIMENOrdering Facility: [facility] Address: [address] [place] [address] Performed By: #### 2 4356-8 ####[facility] LABCLIA [id number] [place] [address] [place] Epithelial cells LM.HPF (Urine sed) [#/Area] None Seen Normal [facility] Comment on above: Order Comment: Speci men Type: URINE SPECIMENOrdering Facility: [facility] Address: [address] [place] [address] Performed By: #### 2 4356-8 ####[facility] LABCLIA [id number] [place] [address] [place] Glucose Test strip (U) [Mass/Vol] Negative Normal Negative [facility] Comment on above: Order Comment: Speci men Type: URINE SPECIMENOrdering Facility: [facility] Address: [address] [place] [address] Performed By: #### 2 4356-8 ####[facility] LABCLIA [id number] [place] [address] [place] Hemoglobin Ql (U) Negative Normal Negative [facility] Comment on above: Order Comment: Speci men Type: URINE SPECIMENOrdering Facility: [facility] Address: [address] [place] [address] Performed By: #### 2 4356-8 ####[facility] LABCLIA [id number] [place] [address] [place] Hyaline casts (Urine sed) [#/Area] 0 /[LPF] Normal 0 /LPF [facility] Comment on above: Order Comment: Speci men Type: URINE SPECIMENOrdering Facility: [facility] Address: [address] [place] [address] Performed By: #### 2 4356-8 ####[facility] LABCLIA [id number] [place] [address] [place] Ketones Ql (U) Negative Normal Negative [facility] Comment on above: Order Comment: Speci men Type: URINE SPECIMENOrdering Facility: [facility] Address: [address] [place] [address] Performed By: #### 2 4356-8 ####[facility] LABCLIA [id number] [place] [address] [place] Leukocyte esterase Test strip Ql (U) Negative Normal Negative [facility] Comment on above: Order Comment: Speci men Type: URINE SPECIMENOrdering Facility: [facility] Address: [address] [place] [address] Performed By: #### 2 4356-8 ####[facility] LABCLIA [id number] [place] [address] [place] Nitrite Ql (U) Negative Normal Negative [facility] Comment on above: Order Comment: Speci men Type: URINE SPECIMENOrdering Facility: [facility] Address: [address] [place] [address] Performed By: #### 2 4356-8 ####[facility] LABCLIA [id number] [place] [address] [place] pH (U) 7.5 [pH] Normal <8.5 [facility] Comment on above: Order Comment: Speci men Type: URINE SPECIMENOrdering Facility: [facility] Address: [address] [place] [address] Performed By: #### 2 4356-8 ####[facility] LABCLIA [id number] [place] [address] [place] Protein (U) [Mass/Vol] Negative Normal Negative [facility] Comment on above: Order Comment: Speci men Type: URINE SPECIMENOrdering Facility: [facility] Address: [address] [place] [address] Performed By: #### 2 4356-8 ####[facility] LABCLIA [id number] [place] [address] [place] RBC LM.HPF (Urine sed) [#/Area] 0-2 /HPF Normal 0-2 /HPF [facility] Comment on above: Order Comment: Speci men Type: URINE SPECIMENOrdering Facility: [facility] Address: [address] [place] [address] Performed By: #### 2 4356-8 ####[facility] LABIA [id number] [place] [address] [place] Specific gravity (U) [Rel density] 1.020 Normal 1.005-1.030 [facility] Comment on above: Order Comment: Speci men Type: URINE SPECIMENOrdering Facility: [facility] Address: [address] [place] [address] Performed By: #### 2 4356-8 ####[facility] [id number] [place] [address] [place] Urobilinogen Ql (U) 1.0 EU/dL Normal 0.2-1.0 EU/dL [facility] Comment on above: Order Comment: Speci men Type: URINE SPECIMENOrdering Facility: [facility] Address: [address] [place] [address] Performed By: #### 2 4356-8 ####[facility] [id number] [place] [address] [place] WBC LM.HPF (Urine sed) [#/Area] 0-5 /HPF Normal 0-5 /HPF [facility] Comment on above: Order Comment: Speci men Type: URINE SPECIMENOrdering Facility: [facility] Address: [address] [place] [address] Performed By: #### 2 4356-8 ####[facility] [id number] [place] [address] [place] XR CHEST 2V FRONTAL/LATon XR CHEST 2V FRONTAL/LAT Normal [facility] Glucose Test strip manual (B ld) [Mass/Vol]on 07-03-2023 Glucose [Mass/Vol] 121 mg/dL High 74 - 99 mg/dL [facility] Interpretation and review of laboratory results [facility] Glucose [Mass/Vol] 121 mg/dL High 74-99 [facility] Comment on above: Performed By: #### 2 4356-8 #### MELISA Galvan ([id number]) [facility] () [address] [place] [address] CBC panel Auto (Bld)on 07-01 Erythrocyte distribution width (RBC) [Ratio] 13.4 % 11.5 - 14.5 % [facility] Hematocrit (Bld) [Volume fraction] 35.5 % Low 36.0 - 46.0 % [facility] Hemoglobin (Bld) [Mass/Vol] 11.8 g/dL Low 12.0 - 16.0 g/dL [facility] Interpretation and review of laboratory results Abnormal [facility] MCH (RBC) [Entitic mass] 30.3 pg 26.0 - 34.0 pg [facility] MCHC (RBC) [Mass/Vol] 33.2 g/dL 32.0 - 36.0 g/dL [facility] MCV (RBC) [Entitic vol] 91 fL 80 - 100 fL [facility] Nucleated RBC/100 WBC (Bld) [Ratio] 0.0 % [facility] Platelets (Bld) [#/Vol] 223 10*3/uL [facility] RBC (Bld) [#/Vol] 3.89 10*6/uL Low [facility] WBC (Bld) [#/Vol] 4.5 10*3/uL [facility] Erythrocyte distribution width (RBC) [Ratio] 13.4 % Normal 11.5-14.5 [facility] Comment on above: Performed By: #### 2 4356-8 #### MELISA Galvan ([id number]) [facility] () [address] [place] [address] Hematocrit (Bld) [Volume fraction] 35.5 % Low 36.0-46.0 [facility] Comment on above: Performed By: #### 2 4356-8 #### MELISA Galvan ([id number]) [facility] () [address] [place] [address] Hemoglobin (Bld) [Mass/Vol] 11.8 g/dL Low 12.0-16.0 [facility] Comment on above: Performed By: #### 2 4356-8 #### MELISA Galvan ([id number]) [facility] () [address] [place] [address] MCH (RBC) [Entitic mass] 30.3 pg Normal 26.0-34.0 [facility] Comment on above: Performed By: #### 2 4356-8 #### MELISA Galvan (69812) [facility] () [address] [place] [address] MCHC (RBC) [Mass/Vol] 33.2 g/dL Normal 32.0-36.0 [facility] Comment on above: Performed By: #### 2 4356-8 #### MELISA Galvan ([id number]) [facility] () [address] [place] [address] MCV (RBC) [Entitic vol] 91 fL Normal 80-100 [facility] Comment on above: Performed By: #### 2 4356-8 #### MELISA Galvan ([id number]) [facility] () [address] [place] [address] Nucleated RBC/100 WBC (Bld) [Ratio] 0.0 /100 WBCs Normal 0.0-0.0 [facility] Comment on above: Performed By: #### 2 4356-8 #### MELISA Galvan ([id number]) [facility] () [address] [place] [address] Platelets (Bld) [#/Vol] 223 x10*3/uL Normal 150-450 [facility] Comment on above: Performed By: #### 2 4356-8 #### MELISA Galvan ([id number]) [facility] () [address] [place] [address] RBC (Bld) [#/Vol] 3.89 x10*6/uL Low 4.00-5.20 [facility] Comment on above: Performed By: #### 2 4356-8 #### MELISA Galvan ([id number]) [facility] () [address] [place] [address] WBC (Bld) [#/Vol] 4.5 x10*3/uL Normal 4.4-11.3 [facility] Comment on above: Performed By: #### 2 4356-8 #### MELISA Galvan ([id number]) [facility] () [address] [place] [address] Glucose Test strip manual (B ld) [Mass/Vol]on 07-02-2023 Glucose [Mass/Vol] 103 mg/dL High 74 - 99 mg/dL [facility] Interpretation and review of laboratory results Abnormal [facility] Glucose [Mass/Vol] 103 mg/dL High 74-99 [facility] Comment on above: Performed By: #### 2 4356-8 #### MELISA Galvan ([id number]) [facility] () [address] [place] [address] Glucose [Mass/Vol] 112 mg/dL High 74 - 99 mg/dL [facility] Interpretation and review of laboratory results Abnormal [facility] Glucose [Mass/Vol] 112 mg/dL High 74-99 [facility] Comment on above: Performed By: #### 2 4356-8 #### MELISA Galvan (72648) [facility] () [address] [place] [address] Glucose [Mass/Vol] 99 mg/dL 74 - 99 mg/dL [facility] Interpretation and review of laboratory results Normal [facility] Glucose [Mass/Vol] 99 mg/dL Normal 74-99 [facility] Comment on above: Performed By: #### 2 4356-8 #### MELISA Galvan (36383) [facility] () [address] [place] [address] Glucose [Mass/Vol] 135 mg/dL High 74 - 99 mg/dL [facility] Interpretation and review of laboratory results Abnormal [facility] Glucose [Mass/Vol] 135 mg/dL High 74-99 [facility] Comment on above: Performed By: #### 2 4356-8 #### MELISA Galvan ([id number]) [facility] (MW) [address] [place] [address] Renal function 2000 panelon 07-02-2023 Albumin [Mass/Vol] 4.0 g/dL 3.5 - 5.0 g/dL [facility] Anion gap [Moles/Vol] 11 mmol/L NINF - 19 mmol/L [facility] Calcium [Mass/Vol] 8.6 mg/dL 8.5 - 10.4 mg/dL [facility] Chloride [Moles/Vol] 103 mmol/L 97 - 107 mmol/L [facility] CO2 [Moles/Vol] 23 mmol/L Low 24 - 31 mmol/L [facility] Creatinine [Mass/Vol] 0.70 mg/dL 0.40 - 1.60 mg/dL [facility] eGFR - PINF [facility] Comment on above: Calculations of jessica mated GFR are performed using the 2020 CKD-EPI Study Refit equation without the race variable for the IDMS-Traceable creatinine methods. https://jasn.asnjournals.org/content//ASN.43225043 88 Glucose [Mass/Vol] 101 mg/dL High 65 - 99 mg/dL [facility] Interpretation and review of laboratory results Abnormal [facility] Phosphate [Mass/Vol] 4.0 mg/dL 2.5 - 4.5 mg/dL [facility] Potassium [Moles/Vol] 3.9 mmol/L 3.4 - 5.1 mmol/L [facility] Sodium [Moles/Vol] 137 mmol/L 133 - 145 mmol/L [facility] Urea nitrogen [Mass/Vol] 13 mg/dL 8 - 25 mg/dL [facility] Albumin [Mass/Vol] 4.0 g/dL Normal 3.5-5.0 [facility] Comment on above: Performed By: #### 2 4356-8 #### MELISA Galvan ([id number]) [facility] () [address] [place] [address] Anion gap [Moles/Vol] 11 mmol/L Normal <=19 [facility] Comment on above: Performed By: #### 2 4356-8 #### MELISA Galvan (26359) [facility] () [address] [place] [address] Calcium [Mass/Vol] 8.6 mg/dL Normal 8.5-10.4 [facility] Comment on above: Performed By: #### 2 4356-8 #### MELISA Galvan (59075) [facility] () [address] [place] [address] Chloride [Moles/Vol] 103 mmol/L Normal 97-107 [facility] Comment on above: Performed By: #### 2 4356-8 #### MELISA Galvan (86550) [facility] () [address] [place] [address] CO2 [Moles/Vol] 23 mmol/L Low 24-31 [facility] Comment on above: Performed By: #### 2 4356-8 #### MELISA Galvan (64846) [facility] () [address] [place] [address] Creatinine [Mass/Vol] 0.70 mg/dL Normal 0.40-1.60 [facility] Comment on above: Performed By: #### 2 4356-8 #### MELISA Galvan ([id number]) [facility] () [address] [place] [address] GFR/1.73 sq M.predicted MDRD (S/P/Bld) [Vol rate/Area] mL/min/{1.73_m2} Normal >60 [facility] Comment on above: Result Comment: Calc ulations of estimated GFR are performed using the 2020 CKD-EPI Study Refit equation without the race variable for the IDMS-Traceable creatinine methods. https://jasn.asnjournals.org/content//ASN.16574522 88 Performed By: #### 2 4356-8 #### MELISA Galvan (06064) [facility] () [address] [place] [address] Glucose [Mass/Vol] 101 mg/dL High 65-99 [facility] Comment on above: Performed By: #### 2 4356-8 #### MELISA Galvan (92902) [facility] () [address] [place] [address] Phosphate [Mass/Vol] 4.0 mg/dL Normal 2.5-4.5 [facility] Comment on above: Performed By: #### 2 4356-8 #### MELISA Galvan (99656) [facility] () [address] [place] [address] Potassium [Moles/Vol] 3.9 mmol/L Normal 3.4-5.1 [facility] Comment on above: Performed By: #### 2 4356-8 #### MELISA Galvan (99282) [facility] () [address] [place] [address] Sodium [Moles/Vol] 137 mmol/L Normal 133-145 [facility] Comment on above: Performed By: #### 2 4356-8 #### MELISA Galvan (30917) [facility] () [address] [place] [address] Urea nitrogen [Mass/Vol] 13 mg/dL Normal 8-25 [facility] Comment on above: Performed By: #### 2 4356-8 #### MELISA Galvan (32686) [facility] () [address] [place] [address] CBC panel Auto (Bld)on 06-30 Erythrocyte distribution width (RBC) [Ratio] 13.7 % 11.5 - 14.5 % [facility] Hematocrit (Bld) [Volume fraction] 36.7 % 36.0 - 46.0 % [facility] Hemoglobin (Bld) [Mass/Vol] 12.0 g/dL 12.0 - 16.0 g/dL [facility] Interpretation and review of laboratory results Abnormal [facility] MCH (RBC) [Entitic mass] 31.1 pg 26.0 - 34.0 pg [facility] MCHC (RBC) [Mass/Vol] 32.7 g/dL 32.0 - 36.0 g/dL [facility] MCV (RBC) [Entitic vol] 95 fL 80 - 100 fL [facility] Nucleated RBC/100 WBC (Bld) [Ratio] 0.0 % [facility] Platelets (Bld) [#/Vol] 228 10*3/uL [facility] RBC (Bld) [#/Vol] 3.86 10*6/uL [facility] WBC (Bld) [#/Vol] 3.3 10*3/uL [facility] Erythrocyte distribution width (RBC) [Ratio] 13.7 % Normal 11.5-14.5 [facility] Comment on above: Performed By: #### 5 8410-2 #### MELISA Galvan (24218) [facility] () [address] [place] [address] Hematocrit (Bld) [Volume fraction] 36.7 % Normal 36.0-46.0 [facility] Comment on above: Performed By: #### 5 8410-2 #### MELISA Galvan (64029) [facility] () [address] [place] [address] Hemoglobin (Bld) [Mass/Vol] 12.0 g/dL Normal 12.0-16.0 [facility] Comment on above: Performed By: #### 5 8410-2 #### MELISA Galvan (46896) [facility] () [address] [place] [address] MCH (RBC) [Entitic mass] 31.1 pg Normal 26.0-34.0 [facility] Comment on above: Performed By: #### 5 8410-2 #### MELISA Galvan () [facility] () [address] [place] [address] MCHC (RBC) [Mass/Vol] 32.7 g/dL Normal 32.0-36.0 [facility] Comment on above: Performed By: #### 5 8410-2 #### MELISA Galvan () [facility] () [address] [place] [address] MCV (RBC) [Entitic vol] 95 fL Normal 80-100 [facility] Comment on above: Performed By: #### 5 8410-2 #### MELISA Galvan () [facility] () [address] [place] [address] Nucleated RBC/100 WBC (Bld) [Ratio] 0.0 /100 WBCs Normal 0.0-0.0 [facility] Comment on above: Performed By: #### 5 8410-2 #### MELISA Galvan (58591) [facility] () [address] [place] [address] Platelets (Bld) [#/Vol] 228 x10*3/uL Normal 150-450 [facility] Comment on above: Performed By: #### 5 8410-2 #### MELISA Galvan (07870) [facility] () [address] [place] [address] RBC (Bld) [#/Vol] 3.86 x10*6/uL Low 4.00-5.20 [facility] Comment on above: Performed By: #### 5 8410-2 #### MELISA Galvan (00436) [facility] () [address] [place] [address] WBC (Bld) [#/Vol] 3.3 x10*3/uL Low 4.4-11.3 [facility] Comment on above: Performed By: #### 5 8410-2 #### MELISA Galvan (64528) [facility] () [address] [place] [address] Glucose Test strip manual (B ld) [Mass/Vol]on 07-01-2023 Glucose [Mass/Vol] 104 mg/dL High 74 - 99 mg/dL [facility] Interpretation and review of laboratory results Abnormal [facility] Glucose [Mass/Vol] 104 mg/dL High 74-99 [facility] Comment on above: Performed By: #### 5 8410-2 #### MELISA Galvan (35817) [facility] () [address] [place] [address] Glucose [Mass/Vol] 92 mg/dL 74 - 99 mg/dL [facility] Interpretation and review of laboratory results Normal [facility] Glucose [Mass/Vol] 92 mg/dL Normal 74-99 [facility] Comment on above: Performed By: #### 5 8410-2 #### MELISA Galvan (21932) [facility] () [address] [place] [address] Glucose [Mass/Vol] 88 mg/dL 74 - 99 mg/dL [facility] Interpretation and review of laboratory results Normal [facility] Glucose [Mass/Vol] 88 mg/dL Normal 74-99 [facility] Comment on above: Performed By: #### 5 8410-2 #### MELISA Galvan (00614) [facility] () [address] [place] [address] Glucose [Mass/Vol] 105 mg/dL High 74 - 99 mg/dL [facility] Interpretation and review of laboratory results Abnormal [facility] Glucose [Mass/Vol] 105 mg/dL High 74-99 [facility] Comment on above: Performed By: #### 5 8410-2 #### MELISA Galvan (63856) [facility] () [address] [place] [address] Glucose [Mass/Vol] 86 mg/dL 74 - 99 mg/dL [facility] Interpretation and review of laboratory results Normal [facility] Glucose [Mass/Vol] 86 mg/dL Normal 74-99 [facility] Comment on above: Performed By: #### 5 8410-2 #### MELISA Galvan (46615) [facility] () [address] [place] [address] Glucose [Mass/Vol] 98 mg/dL 74 - 99 mg/dL [facility] Interpretation and review of laboratory results Normal [facility] Glucose [Mass/Vol] 98 mg/dL Normal 74-99 [facility] Comment on above: Performed By: #### 5 8410-2 #### MELISA Galvan (38193) [facility] () [address] [place] [address] [facility] 2023 Home Health Records [id number] [id number] Normal [facility] Magnesiumon 07-01-2023 Magnesium [Mass/Vol] 2.00 mg/dL 1.60 - 3.10 mg/dL [facility] Magnesium [Mass/Vol] 2.00 mg/dL Normal 1.60-3.10 [facility] Comment on above: Performed By: #### 5 8410-2 #### MELISA Galvan (06944) [facility] () [address] [place] [address] Magnesium [Mass/Vol]on 06-30 Interpretation and review of laboratory results Normal [facility] Renal function 2000 panelon 07-01-2023 Albumin [Mass/Vol] 3.8 g/dL 3.5 - 5.0 g/dL [facility] Anion gap [Moles/Vol] 12 mmol/L NINF - 19 mmol/L [facility] Calcium [Mass/Vol] 8.5 mg/dL 8.5 - 10.4 mg/dL [facility] Chloride [Moles/Vol] 106 mmol/L 97 - 107 mmol/L [facility] CO2 [Moles/Vol] 21 mmol/L Low 24 - 31 mmol/L [facility] Creatinine [Mass/Vol] 0.70 mg/dL 0.40 - 1.60 mg/dL [facility] eGFR - PINF [facility] Comment on above: Calculations of jessica mated GFR are performed using the 2020 CKD-EPI Study Refit equation without the race variable for the IDMS-Traceable creatinine methods. https://jasn.asnjournals.org/content//ASN.64241540 88 Glucose [Mass/Vol] 113 mg/dL High 65 - 99 mg/dL [facility] Interpretation and review of laboratory results Abnormal [facility] Phosphate [Mass/Vol] 5.4 mg/dL High 2.5 - 4.5 mg/dL [facility] Potassium [Moles/Vol] 3.9 mmol/L 3.4 - 5.1 mmol/L [facility] Sodium [Moles/Vol] 139 mmol/L 133 - 145 mmol/L [facility] Urea nitrogen [Mass/Vol] 12 mg/dL 8 - 25 mg/dL [facility] Albumin [Mass/Vol] 3.8 g/dL Normal 3.5-5.0 [facility] Comment on above: Performed By: #### 5 8410-2 #### MELISA Galvan (65544) [facility] () [address] [place] [address] Anion gap [Moles/Vol] 12 mmol/L Normal <=19 [facility] Comment on above: Performed By: #### 5 8410-2 #### MELISA Galvan (43199) [facility] () [address] [place] [address] Calcium [Mass/Vol] 8.5 mg/dL Normal 8.5-10.4 [facility] Comment on above: Performed By: #### 5 8410-2 #### MELISA Galvan (86538) [facility] () [address] [place] [address] Chloride [Moles/Vol] 106 mmol/L Normal 97-107 [facility] Comment on above: Performed By: #### 5 8410-2 #### MELISA Galvan (05499) [facility] () [address] [place] [address] CO2 [Moles/Vol] 21 mmol/L Low 24-31 [facility] Comment on above: Performed By: #### 5 8410-2 #### MELISA Galvan (66275) [facility] () [address] [place] [address] Creatinine [Mass/Vol] 0.70 mg/dL Normal 0.40-1.60 [facility] Comment on above: Performed By: #### 5 8410-2 #### MELISA Galvan (77101) [facility] () [address] [place] [address] GFR/1.73 sq M.predicted MDRD (S/P/Bld) [Vol rate/Area] mL/min/{1.73_m2} Normal >60 [facility] Comment on above: Result Comment: Calc ulations of estimated GFR are performed using the 2020 CKD-EPI Study Refit equation without the race variable for the IDMS-Traceable creatinine methods. https://jasn.asnjournals.org/content//ASN.79283903 88 Performed By: #### 5 8410-2 #### MELISA Galvan (47246) [facility] () [address] [place] [address] Glucose [Mass/Vol] 113 mg/dL High 65-99 [facility] Comment on above: Performed By: #### 5 8410-2 #### MELISA Galvan (69817) [facility] () [address] [place] [address] Phosphate [Mass/Vol] 5.4 mg/dL High 2.5-4.5 [facility] Comment on above: Performed By: #### 5 8410-2 #### MELISA Galvan (47382) [facility] () [address] [place] [address] Potassium [Moles/Vol] 3.9 mmol/L Normal 3.4-5.1 [facility] Comment on above: Performed By: #### 5 8410-2 #### MELISA Galvan ([id number]) [facility] () [address] [place] [address] Sodium [Moles/Vol] 139 mmol/L Normal 133-145 [facility] Comment on above: Performed By: #### 5 8410-2 #### EMLISA Galvan ([id number]) [facility] () [address] [place] [address] Urea nitrogen [Mass/Vol] 12 mg/dL Normal 8-25 [facility] Comment on above: Performed By: #### 5 8410-2 #### MELISA Galvan ([id number]) [facility] () [address] [place] [address] Vascular US mesenteric arter y duplex completeon 07-01-2023 [facility] [address] [place] [address] Vascular Lab Report VASC US MESENTERIC ARTERY DUPLEX COMPLETE Patient Name: ABBEY Oneil Physician: [id number] Sherry Magaña MD Study Date: 06/30/2023 Ordering Provider: [id number] JAMIL GAVIN MRN/PID: [id number] Fellow: Technologist: Leia Degroot RVT Date of /Age: 2 1990 / 33 years Technologist 2: Gender: F Admission Status: Inpatient Location Performed: [facility] 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 Right-sided PICC line identified with tip in the region of the mid SVC. No infiltrate or effusion is identified. Visualized osseous structures unremarkable. IMPRESSION: 1. Right PICC line placement with tip in the mid SVC. Signed by: Dotty Salcido 07/01/2023 1:46 PM Dictation workstation: [id number] [facility] XR Chest Single viewon 06-30 1. Right PICC line placement with tip in the mid SVC. Signed by: Dotty Salcido 07/01/2023 1:46 PM Dictation workstation: [id number] Interpreted By: Dotty Salcido, STUDY: XR CHEST 1 VIEW 07/01/2023 1:30 pm INDICATION: Signs/Symptoms:PICC line position verification COMPARISON: 03/17/2023 ACCESSION NUMBER(S): [id number] ORDERING CLINICIAN: DOLORES COX TECHNIQUE: Single AP [...] line position verification COMPARISON: 03/17/2023 ACCESSION NUMBER(S): [id number] ORDERING CLINICIAN: DOLORES COX TECHNIQUE: Single AP view chest FINDINGS: Cardiomediastinal silhouette is within normal limits. Right-sided PICC line identified with tip in the region of the mid SVC. No infiltrate or effusion is identified. Visualized osseous structures unremarkable. IMPRESSION: 1. Right PICC line placement with tip in the mid SVC. Signed by: Dotty Salcido 07/01/2023 1:46 PM Dictation workstation: [id number] [facility] Work Phone: Radiology Study observation (narrative) [facility] Work Phone: XR Chest Single viewOrdered By: Dotty Salcido on 07-01-2023 [facility] Work Phone: CBC panel Auto (Bld)on 06-29 Erythrocyte distribution width (RBC) [Ratio] 13.8 % 11.5 - 14.5 % [facility] Hematocrit (Bld) [Volume fraction] 32.2 % Low 36.0 - 46.0 % [facility] Hemoglobin (Bld) [Mass/Vol] 10.8 g/dL Low 12.0 - 16.0 g/dL [facility] Interpretation and review of laboratory results Abnormal [facility] MCH (RBC) [Entitic mass] 31.0 pg 26.0 - 34.0 pg [facility] MCHC (RBC) [Mass/Vol] 33.5 g/dL 32.0 - 36.0 g/dL [facility] MCV (RBC) [Entitic vol] 93 fL 80 - 100 fL [facility] Nucleated RBC/100 WBC (Bld) [Ratio] 0.0 % [facility] Platelets (Bld) [#/Vol] 217 10*3/uL [facility] RBC (Bld) [#/Vol] 3.48 10*6/uL Low [facility] WBC (Bld) [#/Vol] 5.0 10*3/uL [facility] Erythrocyte distribution width (RBC) [Ratio] 13.8 % Normal 11.5-14.5 [facility] Comment on above: Performed By: #### 5 8410-2 ####MELISA Galvan ([id number])[facility] (MW)[address] [place] [address] Hematocrit (Bld) [Volume fraction] 32.2 % Low 36.0-46.0 [facility] Comment on above: Performed By: #### 5 8410-2 ####MELISA Galvan (15885)[facility] ()[address] [place] [address] Hemoglobin (Bld) [Mass/Vol] 10.8 g/dL Low 12.0-16.0 [facility] Comment on above: Performed By: #### 5 8410-2 ####MELISA Galvan (39768)[facility] ()[address] [place] [address] MCH (RBC) [Entitic mass] 31.0 pg Normal 26.0-34.0 [facility] Comment on above: Performed By: #### 5 8410-2 ####MELISA Galvan (77318)[facility] ()[address] [place] [address] MCHC (RBC) [Mass/Vol] 33.5 g/dL Normal 32.0-36.0 [facility] Comment on above: Performed By: #### 5 8410-2 ####MELISA Galvan (80248)[facility] ()[address] [place] [address] MCV (RBC) [Entitic vol] 93 fL Normal 80-100 [facility] Comment on above: Performed By: #### 5 8410-2 ####MELISA Galvan (45692)[facility] ()[address] [place] [address] Nucleated RBC/100 WBC (Bld) [Ratio] 0.0 /100 WBCs Normal 0.0-0.0 [facility] Comment on above: Performed By: #### 5 8410-2 ####MELISA Galvan (39298)[facility] ()[address] [place] [address] Platelets (Bld) [#/Vol] 217 x10*3/uL Normal 150-450 [facility] Comment on above: Performed By: #### 5 8410-2 ####MELISA Galvan (51531)[facility] ()[address] [facility] [place] [address] RBC (Bld) [#/Vol] 3.48 x10*6/uL Low 4.00-5.20 [facility] Comment on above: Performed By: #### 5 8410-2 ####MELISA Galvan (58333)[facility] ()[address] [place] [address] WBC (Bld) [#/Vol] 5.0 x10*3/uL Normal 4.4-11.3 [facility] Comment on above: Performed By: #### 5 8410-2 ####MELISA Galvan (24860)[facility] ()[address] [place] [address] CT ANGIO ABDOMEN PELVIS W AN D/OR WO IV IV CONTRASTon 06-30-2023 CT ANGIO ABDOMEN PELVIS W AND/OR WO IV IV CONTRAST Interpreted By: Audie Gutierrez, STUDY: CT ANGIO ABDOMEN PELVIS W AND/OR WO IV IV CONTRAST; 06/30/2023 10:56 am INDICATION: Signs/Symptoms:Carmela ac disease; COMPARISON: 06/29/2023 ACCESSION NUMBER(S): [id number] ORDERING CLINICIAN: TIFFANIE MENDEZ TECHNIQUE: Contiguous axial [...] Audie Gutierrez 06/30/2023 12:06 PM Dictation workstation: [id number] [facility] Comment on above: Order Comment: CTA, [...] Audie Gutierrez 06/30/2023 12:06 PM Dictation workstation: [id number] MMODAL Interpreted By: Audie Gutierrez, STUDY: CT ANGIO ABDOMEN PELVIS W AND/OR WO IV IV CONTRAST; 06/30/2023 10:56 am INDICATION: Signs/Symptoms:Carmela ac disease; COMPARISON: 06/29/2023 ACCESSION NUMBER(S): [id number] ORDERING CLINICIAN: TIFFANIE MENDEZ TECHNIQUE: Contiguous axial [...] Signs/Symptoms:Carmela ac disease; COMPARISON: 06/29/2023 ACCESSION NUMBER(S): [id number] ORDERING CLINICIAN: TIFFANIE MENDEZ TECHNIQUE: Contiguous axial [...] Audie Gutierrez 06/30/2023 12:06 PM Dictation workstation: [id number] [facility] Work Phone: Radiology Study observation (narrative) [facility] Work Phone: CTA Abdominal vessels and Pe lvis vessels WO and W contrast IVOrdered By: Audie Gutierrez on 06-30-2023 [facility] Work Phone: Comprehensive metabolic 2000 panelOrdered By: Cristina Blevins on 06-30-2023 Albumin [Mass/Vol] 3.8 g/dL 3.5 - 5.0 g/dL [facility] ALP (Bld) [Catalytic activity/Vol] 51 U/L 35 - 125 U/L [facility] ALT [Catalytic activity/Vol] 35 U/L 5 - 40 U/L [facility] Anion gap [Moles/Vol] 13 mmol/L NINF - 19 mmol/L [facility] AST [Catalytic activity/Vol] 52 U/L High 5 - 40 U/L [facility] Bilirubin [Mass/Vol] mg/dL 0.1 - 1.2 mg/dL [facility] Calcium [Mass/Vol] 9.1 mg/dL 8.5 - 10.4 mg/dL [facility] Chloride [Moles/Vol] 90 mmol/L Low 97 - 107 mmol/L [facility] CO2 [Moles/Vol] 19 mmol/L Low 24 - 31 mmol/L [facility] Creatinine [Mass/Vol] 0.70 mg/dL 0.40 - 1.60 mg/dL [facility] eGFR - PINF [facility] Comment on above: Calculations of jessica mated GFR are performed using the 2020 CKD-EPI Study Refit equation without the race variable for the IDMS-Traceable creatinine methods. https://jasn.asnjournals.org/content//ASN.18869189 88 Glucose [Mass/Vol] 920 mg/dL Critically high 65 - 99 mg/d L [facility] Comment on above: Result rechecked Possible IV contamination. Results do not correlate with previous and post results. Patient was redraw . Interpretation and review of laboratory results Abnormal [facility] Potassium [Moles/Vol] 6.8 mmol/L Critically high 3.4 - 5.1 mmol/L [facility] Comment on above: Result rechecked Possible IV contamination. Results do not correlate with previus and post results. Patient was redrawn. Protein [Mass/Vol] 6.3 g/dL 5.9 - 7.9 g/dL Un [facility] Sodium [Moles/Vol] 122 mmol/L Low 133 - 145 mmol/L [facility] Comment on above: Result rechecked Urea nitrogen [Mass/Vol] 15 mg/dL 8 - 25 mg/dL [facility] Comprehensive metabolic 2000 panelon 06-30-2023 Albumin [Mass/Vol] 3.8 g/dL 3.5 - 5.0 g/dL Un [facility] ALP (Bld) [Catalytic activity/Vol] 52 U/L 35 - 125 U/L [facility] ALT [Catalytic activity/Vol] 34 U/L 5 - 40 U/L [facility] Anion gap [Moles/Vol] 10 mmol/L NINF - 19 mmol/L [facility] AST [Catalytic activity/Vol] 43 U/L High 5 - 40 U/L [facility] Bilirubin [Mass/Vol] 0.3 mg/dL 0.1 - 1.2 mg/dL [facility] Calcium [Mass/Vol] 8.8 mg/dL 8.5 - 10.4 mg/dL [facility] Chloride [Moles/Vol] 104 mmol/L 97 - 107 mmol/L [facility] CO2 [Moles/Vol] 23 mmol/L Low 24 - 31 mmol/L [facility] Creatinine [Mass/Vol] 0.60 mg/dL 0.40 - 1.60 mg/dL [facility] eGFR - PINF [facility] Comment on above: Calculations of jessica mated GFR are performed using the 2020 CKD-EPI Study Refit equation without the race variable for the IDMS-Traceable creatinine methods. https://jasn.asnjournals.org/content//ASN.47083340 88 Glucose [Mass/Vol] 136 mg/dL High 65 - 99 mg/dL [facility] Interpretation and review of laboratory results Abnormal [facility] Potassium [Moles/Vol] 3.9 mmol/L 3.4 - 5.1 mmol/L [facility] Protein [Mass/Vol] 6.3 g/dL 5.9 - 7.9 g/dL Un [facility] Sodium [Moles/Vol] 137 mmol/L 133 - 145 mmol/L [facility] Urea nitrogen [Mass/Vol] 14 mg/dL 8 - 25 mg/dL [facility] Albumin [Mass/Vol] 3.8 g/dL Normal 3.5-5.0 [facility] Comment on above: Performed By: #### 2 4323-8 ####MELISA Galvan ([id number])[facility] ()[address] [place] [address] ALP (Bld) [Catalytic activity/Vol] 52 U/L Normal 35-125 [facility] Comment on above: Performed By: #### 2 4323-8 ####MELISA Galvan (02993)[facility] ()[address] [place] [facility] [place] [address] ALT [Catalytic activity/Vol] 34 U/L Normal 5-40 [facility] Comment on above: Performed By: #### 2 4323-8 ####MELISA Galvan (50264)[facility] ()[address] [facility] [place] [address] Anion gap [Moles/Vol] 10 mmol/L Normal <=19 [facility] Comment on above: Performed By: #### 2 4323-8 ####MELISA Galvan (49633)[facility] ()[address] [place] [address] AST [Catalytic activity/Vol] 43 U/L High 5-40 [facility] Comment on above: Performed By: #### 2 4323-8 ####MELISA Galvan (83670)[facility] ()[address] [place] [address] Bilirubin [Mass/Vol] 0.3 mg/dL Normal 0.1-1.2 [facility] Comment on above: Performed By: #### 2 432-8 ####MELISA Galvan (56144)[facility] ()[address] [place] [address] Calcium [Mass/Vol] 8.8 mg/dL Normal 8.5-10.4 [facility] Comment on above: Performed By: #### 2 4323-8 ####MELISA Galvan (50535)[facility] ()[address] [place] [address] Chloride [Moles/Vol] 104 mmol/L Normal 97-107 [facility] Comment on above: Performed By: #### 2 4323-8 ####MELISA Galvan (15046)[facility] ()[address] [place] [address] CO2 [Moles/Vol] 23 mmol/L Low 24-31 [facility] Comment on above: Performed By: #### 2 4323-8 ####MELISA Galvan (66826)[facility] ()[address] [place] [address] Creatinine [Mass/Vol] 0.60 mg/dL Normal 0.40-1.60 [facility] Comment on above: Performed By: #### 2 4323-8 ####MELISA Galvan (90439)[facility] ()[address] [place] [address] GFR/1.73 sq M.predicted MDRD (S/P/Bld) [Vol rate/Area] mL/min/{1.73_m2} Normal >60 [facility] Comment on above: Result Comment: Calc ulations of estimated GFR are performed using the 2020 CKD-EPI Study Refit equation without the race variable for the IDMS-Traceable creatinine methods. https://jasn.asnjournals.org/content//ASN.90518092 88 Performed By: #### 2 4323-8 ####MELISA Galvan (04810)[facility] ()[address] [place] [address] Glucose [Mass/Vol] 136 mg/dL High 65-99 [facility] Comment on above: Performed By: #### 2 432-8 ####MELISA Galvan (78882)[facility] ()[address] [place] [address] Potassium [Moles/Vol] 3.9 mmol/L Normal 3.4-5.1 [facility] Comment on above: Performed By: #### 2 432-8 ####MELISA Galvan (30592)[facility] ()[address] [place] [address] Protein [Mass/Vol] 6.3 g/dL Normal 5.9-7.9 [facility] Comment on above: Performed By: #### 2 4323-8 ####MELISA Galvan (26899)[facility] ()[address] [place] [address] Sodium [Moles/Vol] 137 mmol/L Normal 133-145 [facility] Comment on above: Performed By: #### 2 4323-8 ####MELISA Galvan (93705)[facility] ()[address] [place] [address] Urea nitrogen [Mass/Vol] 14 mg/dL Normal 8-25 [facility] Comment on above: Performed By: #### 2 4323-8 ####MELISA Galvan (94782)[facility] ()[address] [place] [address] Extra Urine [place] Tubeon 06-15 Extra Tube Hold for add-ons. [facility] Comment on above: Auto resulted. [facility] Glucose Test strip manual (B ld) [Mass/Vol]on 06-30-2023 Glucose [Mass/Vol] 117 mg/dL High 74 - 99 mg/dL [facility] Interpretation and review of laboratory results Abnormal [facility] Glucose [Mass/Vol] 117 mg/dL High 74-99 [facility] Comment on above: Performed By: #### 2 341-6 ####MELISA Galvan (88390)[facility] ()[address] [place] [address] Glucose [Mass/Vol] 77 mg/dL 74 - 99 mg/dL [facility] Interpretation and review of laboratory results Normal [facility] Glucose [Mass/Vol] 77 mg/dL Normal 74-99 [facility] Comment on above: Performed By: #### 2 341-6 ####MELISA Galvan (21256)[facility] ()[address] [place] [address] HCG ( test) IA.rapi d Ql (U)Ordered By: Agustin Cedillo on 06-30-2023 HCG ( test) Ql (U) Negative NEGATIVE [facility] Interpretation and review of laboratory results Normal [facility] HCG ( test) IA.rapi d Ql (U)on 06-30-2023 HCG ( test) Ql (U) Negative Normal NEGATIVE [facility] Comment on above: Performed By: #### 8 0384-1 ####MELISA Galvan (60510)[facility] ()[address] [place] [address] Magnesiumon 06-30-2023 Magnesium [Mass/Vol] 1.90 mg/dL 1.60 - 3.10 mg/dL [facility] Magnesium [Mass/Vol] 1.90 mg/dL Normal 1.60-3.10 [facility] Comment on above: Performed By: #### 1 9123-9 ####MELISA Galvan (76541)[facility] ()[address] [place] [address] No Panel Informationon 06-29 Interpretation and review of laboratory results Normal [facility] Phosphateon 06-30-2023 Phosphate [Mass/Vol] 4.4 mg/dL Normal 2.5-4.5 [facility] Comment on above: Performed By: #### 2 777-1 ####MELISA Galvan (98520)[facility] ()[address] [place] [address] Phosphoruson 06-30-2023 Phosphate [Mass/Vol] 4.4 mg/dL 2.5 - 4.5 mg/dL [facility] Urinalysis complete W Reflex Culture panel (U)on 06-30-2023 Appearance (U) Clear Clear [facility] Bilirubin (U) [Mass/Vol] Negative NEGATIVE [facility] Color (U) Light-Yellow Light-Yellow, Yellow, Dark-Yellow [facility] Glucose Auto test strip (U) [Mass/Vol] Normal Normal mg/dL [facility] Interpretation and review of laboratory results Normal [facility] Ketones (U) [Mass/Vol] Negative NEGATIVE mg/dL [facility] Leukocyte esterase Auto test strip Ql (U) Negative NEGATIVE [facility] Nitrite Auto test strip Ql (U) Negative NEGATIVE [facility] pH (U) 6.0 [pH] 5.0, 5.5, 6.0, 6.5, 7.0, 7.5, 8.0 [facility] Protein (U) [Mass/Vol] Negative NEGATIVE, 10 (TRACE), 20 (TRACE) mg/dL [facility] RBC (U) [#/Vol] Negative NEGATIVE [facility] Specific gravity (U) [Rel density] 1.023 1.005 - 1.035 [facility] Urobilinogen (U) [Mass/Vol] Normal Normal mg/dL [facility] Appearance (U) Clear Normal Clear [facility] Comment on above: Performed By: #### 5 8077-9 ####MELISA Galvan (68745)[facility] ()[address] [place] [address] Bilirubin (U) [Mass/Vol] Negative Normal NEGATIVE [facility] Comment on above: Performed By: #### 5 8077-9 ####MELISA Galvan (64736)[facility] ()[address] [place] [address] Color (U) Light-Yellow Normal Light-Yellow, Yellow, Dark-Yellow [facility] Comment on above: Performed By: #### 5 8077-9 ####MELISA Galvan (78176)[facility] ()[address] [place] [address] Glucose Auto test strip (U) [Mass/Vol] Normal Normal Normal [facility] Comment on above: Performed By: #### 5 8077-9 ####MELISA Galvan (90680)[facility] ()[address] [place] [address] Ketones (U) [Mass/Vol] Negative Normal NEGATIVE [facility] Comment on above: Performed By: #### 5 8077-9 ####MELISA Galvan (22395)[facility] ()[address] [place] [address] Leukocyte esterase Auto test strip Ql (U) Negative Normal NEGATIVE [facility] Comment on above: Performed By: #### 5 8077-9 ####MELISA Galvan (14363)[facility] ()[address] [place] [address] Nitrite Auto test strip Ql (U) Negative Normal NEGATIVE [facility] Comment on above: Performed By: #### 5 8077-9 ####MELISA Galvan (48398)[facility] ()[address] [place] [address] pH (U) 6.0 [pH] Normal 5.0, 5.5, 6.0, 6.5, 7.0, 7.5, 8.0 [facility] Comment on above: Performed By: #### 5 8077-9 ####MELISA Galvan (15162)[facility] ()[address] [place] [address] Protein (U) [Mass/Vol] Negative Normal NEGATIVE, 10 (TRACE), 20 (TRACE) [facility] Comment on above: Performed By: #### 5 8077-9 ####MELSIA Galvan (17918)[facility] ()[address] [place] [address] RBC (U) [#/Vol] Negative Normal NEGATIVE [facility] Comment on above: Performed By: #### 5 8077-9 ####MELISA Galvan (55200)[facility] ()[address] [place] [place] [address] Specific gravity (U) [Rel density] 1.023 Normal 1.005-1.035 [facility] Comment on above: Performed By: #### 5 8077-9 ####MELISA Galvan (72315)[facility] ()[address] [place] [address] Urobilinogen (U) [Mass/Vol] Normal Normal Normal [facility] Comment on above: Performed By: #### 5 8077-9 ####MELISA Galvan (19381)[facility] ()[address] [place] [address] VASC US MESENTERIC ARTERY DU PLEX COMPLETEon 06-30-2023 VASC US MESENTERIC ARTERY DUPLEX COMPLETE [facility] [address] [place] [address] Vascular Lab Report VASC US MESENTERIC ARTERY DUPLEX COMPLETE Patient Name: ABBEY FloresRenetta Oneil Physician: [id number] Sherry Magaña MD Study Date: 06/30/2023 Ordering Provider: [id number] JAMIL GAVIN MRN/PID: [id number] Fellow: Technologist: Leia Degroot RVT Date of /Age: 2 1990 / 33 years Technologist 2: Gender: F Admission Status: Inpatient Location Performed: [facility] 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 Report Amended Report Amended By: [id number] Magaña MD Date and Time: 06/30/2023 at [...] PSV 89 cm/s KEELY PSV 105 cm/s [id number] Sherry Magaña MD Brandy Magaña MD Electronically Amended 06/30/2023, 12:15 PM Final (Amended) Normal [facility] Vascular US mesenteric arter y duplex completeon 06-30-2023 Radiology Study observation (narrative) [facility] Work Phone: Basic metabolic 2000 panelon 06-29-2023 Anion gap [Moles/Vol] 12 mmol/L NINF - 19 mmol/L [facility] Calcium [Mass/Vol] 8.6 mg/dL 8.5 - 10.4 mg/dL [facility] Chloride [Moles/Vol] 105 mmol/L 97 - 107 mmol/L [facility] CO2 [Moles/Vol] 21 mmol/L Low 24 - 31 mmol/L [facility] Creatinine [Mass/Vol] 0.60 mg/dL 0.40 - 1.60 mg/dL [facility] eGFR - PINF [facility] Comment on above: Calculations of jessica mated GFR are performed using the 2020 CKD-EPI Study Refit equation without the race variable for the IDMS-Traceable creatinine methods. https://jasn.asnjournals.org/content//ASN.51041545 88 Glucose [Mass/Vol] 106 mg/dL High 65 - 99 mg/dL [facility] Interpretation and review of laboratory results Abnormal [facility] Potassium [Moles/Vol] 3.9 mmol/L 3.4 - 5.1 mmol/L [facility] Sodium [Moles/Vol] 138 mmol/L 133 - 145 mmol/L [facility] Urea nitrogen [Mass/Vol] 16 mg/dL 8 - 25 mg/dL [facility] Anion gap [Moles/Vol] 12 mmol/L Normal <=19 [facility] Comment on above: Performed By: #### V ERAB #### MELISA Galvan ([id number]) [facility] ([facility]) [address] [place] [address] [place] Calcium [Mass/Vol] 8.6 mg/dL Normal 8.5-10.4 [facility] Comment on above: Performed By: #### V ERAB #### MELISA Galvan ([id number]) [facility] ([facility]) [address] [place] [address] [place] Chloride [Moles/Vol] 105 mmol/L Normal 97-107 [facility] Comment on above: Performed By: #### V ERAB #### MELISA Galvan ([id number]) [facility] ([facility]) [address] [place] [address] [place] CO2 [Moles/Vol] 21 mmol/L Low 24-31 [facility] Comment on above: Performed By: #### V ERAB #### MELISA Galvan ([id number]) [facility] ([facility]) [address] [place] [address] [place] Creatinine [Mass/Vol] 0.60 mg/dL Normal 0.40-1.60 [facility] Comment on above: Performed By: #### V ERAB #### MELISA Galvan () [facility] ([facility]) [address] [place] [address] [place] GFR/1.73 sq M.predicted MDRD (S/P/Bld) [Vol rate/Area] mL/min/{1.73_m2} Normal >60 [facility] Comment on above: Result Comment: Calc ulations of estimated GFR are performed using the 2020 CKD-EPI Study Refit equation without the race variable for the IDMS-Traceable creatinine methods. https://jasn.asnjournals.org/content/early/ASN.71009238 88 Performed By: #### V ERAB #### MELISA Galvan () [facility] ([facility]) [address] [place] [address] [place] Glucose [Mass/Vol] 106 mg/dL High 65-99 [facility] Comment on above: Performed By: #### V ERAB #### MELISA Galvan () [facility] ([facility]) [address] [place] [address] [place] Potassium [Moles/Vol] 3.9 mmol/L Normal 3.4-5.1 [facility] Comment on above: Performed By: #### V ERAB #### MELISA Galvan () [facility] ([facility]) [address] [place] [address] [place] Sodium [Moles/Vol] 138 mmol/L Normal 133-145 [facility] Comment on above: Performed By: #### V ERAB #### MELISA Galvan ([id number]) [facility] ([facility]) [address] [place] [address] [place] Urea nitrogen [Mass/Vol] 16 mg/dL Normal 8-25 [facility] Comment on above: Performed By: #### V ERAB #### MELISA Galvan ([id number]) [facility] ([facility]) [id number] [place] [address] [place] CBC W Auto Differential pane l (Bld)on 06-29-2023 Basophils (Bld) [#/Vol] 0.03 10*3/uL [facility] Basophils/100 WBC (Bld) 0.6 % 0.0 - 2.0 % [facility] Eosinophils (Bld) [#/Vol] 0.01 10*3/uL [facility] Eosinophils/100 WBC (Bld) 0.2 % 0.0 - 6.0 % [facility] Erythrocyte distribution width (RBC) [Ratio] 13.8 % 11.5 - 14.5 % [facility] Hematocrit (Bld) [Volume fraction] 32.2 % Low 36.0 - 46.0 % [facility] Hemoglobin (Bld) [Mass/Vol] 10.3 g/dL Low 12.0 - 16.0 g/dL [facility] Immature granulocytes (Bld) [#/Vol] 0.01 10*3/uL [facility] Immature granulocytes/100 WBC (Bld) 0.2 % 0.0 - 0.9 % [facility] Comment on above: Immature Granulocyte Count (IG) includes promyelocytes, myelocytes and metamyelocytes but does not include bands. Percent differential counts (%) should be interpreted in the context of the absolute cell counts (cells/UL). Interpretation and review of laboratory results Abnormal [facility] Lymphocytes (Bld) [#/Vol] 1.15 10*3/uL Low [facility] Lymphocytes/100 WBC (Bld) 23.1 % 13.0 - 44.0 % [facility] MCH (RBC) [Entitic mass] 31.2 pg 26.0 - 34.0 pg [facility] MCHC (RBC) [Mass/Vol] 32.0 g/dL 32.0 - 36.0 g/dL [facility] MCV (RBC) [Entitic vol] 98 fL 80 - 100 fL [facility] Monocytes (Bld) [#/Vol] 0.20 10*3/uL [facility] Monocytes/100 WBC (Bld) 4.0 % 2.0 - 10.0 % [facility] Neutrophils (Bld) [#/Vol] 3.57 10*3/uL [facility] Comment on above: Percent differential counts (%) should be interpreted in the context of the absolute cell counts (cells/uL). Neutrophils/100 WBC (Bld) 71.9 % 40.0 - 80.0 % [facility] Nucleated RBC/100 WBC (Bld) [Ratio] 0.0 % [facility] Platelets (Bld) [#/Vol] 231 10*3/uL [facility] RBC (Bld) [#/Vol] 3.30 10*6/uL Low [facility] WBC (Bld) [#/Vol] 5.0 10*3/uL [facility] Basophils (Bld) [#/Vol] 0.03 x10*3/uL Normal 0.00-0.10 [facility] Comment on above: Performed By: #### V ERAB #### MELISA Galvan ([id number]) [facility] ([facility]) [address] [place] [address] [place] Basophils/100 WBC (Bld) 0.6 % Normal 0.0-2.0 [facility] Comment on above: Performed By: #### V ERAB #### MELISA Galvan ([id number]) [facility] ([facility]) [address] [place] [address] [place] Eosinophils (Bld) [#/Vol] 0.01 x10*3/uL Normal 0.00-0.70 [facility] Comment on above: Performed By: #### V ERAB #### MELISA Galvan ([id number]) [facility] ([facility]) [address] [place] [address] [place] Eosinophils/100 WBC (Bld) 0.2 % Normal 0.0-6.0 [facility] Comment on above: Performed By: #### V ERAB #### MELISA Galvan ([id number]) [facility] ([facility]) [address] [place] [address] [place] Erythrocyte distribution width (RBC) [Ratio] 13.8 % Normal 11.5-14.5 [facility] Comment on above: Performed By: #### V ERAB #### MELISA Galvan ([id number]) [facility] ([facility]) [address] [place] [address] [place] Hematocrit (Bld) [Volume fraction] 32.2 % Low 36.0-46.0 [facility] Comment on above: Performed By: #### V ERAB #### MELISA Galvan ([id number]) [facility] ([facility]) [id number] [place] [address] [place] Hemoglobin (Bld) [Mass/Vol] 10.3 g/dL Low 12.0-16.0 [facility] Comment on above: Performed By: #### V ERAB #### MELISA Galvan ([id number]) [facility] ([facility]) [address] [place] [address] [place] Immature granulocytes (Bld) [#/Vol] 0.01 x10*3/uL Normal 0.00-0.70 [facility] Comment on above: Performed By: #### V ERAB #### MELISA Galvan ([id number]) [facility] ([facility]) [address] [place] [address] [place] Immature granulocytes/100 WBC (Bld) 0.2 % Normal 0.0-0.9 [facility] Comment on above: Result Comment: Janny ture Granulocyte Count (IG) includes promyelocytes, myelocytes and metamyelocytes but does not include bands. Percent differential counts (%) should be interpreted in the context of the absolute cell counts (cells/UL). Performed By: #### V ERAB #### MELISA Galvan ([id number]) [facility] ([facility]) [address] [place] [address] [place] Lymphocytes (Bld) [#/Vol] 1.15 x10*3/uL Low 1.20-4.80 [facility] Comment on above: Performed By: #### V ERAB #### MELISA Galvan () [facility] ([facility]) [address] [place] [address] [place] Lymphocytes/100 WBC (Bld) 23.1 % Normal 13.0-44.0 [facility] Comment on above: Performed By: #### V ERAB #### MELISA Galvan () [facility] ([facility]) [address] [place] [address] [place] MCH (RBC) [Entitic mass] 31.2 pg Normal 26.0-34.0 [facility] Comment on above: Performed By: #### V ERAB #### MELISA Galvan () [facility] ([facility]) [address] [place] [address] [place] MCHC (RBC) [Mass/Vol] 32.0 g/dL Normal 32.0-36.0 [facility] Comment on above: Performed By: #### V ERAB #### MELISA Galvan () [facility] ([facility]) [address] [place] [address] [place] MCV (RBC) [Entitic vol] 98 fL Normal 80-100 [facility] Comment on above: Performed By: #### V ERAB #### MELISA Galvan () [facility] ([facility]) [address] [place] [address] [place] Monocytes (Bld) [#/Vol] 0.20 x10*3/uL Normal 0.10-1.00 [facility] Comment on above: Performed By: #### V ERAB #### MELISA Galvan () [facility] ([facility]) [address] [place] [address] [place] Monocytes/100 WBC (Bld) 4.0 % Normal 2.0-10.0 [facility] Comment on above: Performed By: #### V ERAB #### MELISA POOLESarwat Galvan ([id number]) [facility] ([facility]) [address] [place] [address] [place] Neutrophils (Bld) [#/Vol] 3.57 x10*3/uL Normal 1.20-7.70 [facility] Comment on above: Result Comment: Perc ent differential counts (%) should be interpreted in the context of the absolute cell counts (cells/uL). Performed By: #### V ERAB #### MELISA Galvan ([id number]) [facility] ([facility]) [address] [place] [address] [place] Neutrophils/100 WBC (Bld) 71.9 % Normal 40.0-80.0 [facility] Comment on above: Performed By: #### V ERAB #### MELISA Galvan ([id number]) [facility] ([facility]) [address] [place] [address] [place] Nucleated RBC/100 WBC (Bld) [Ratio] 0.0 /100 WBCs Normal 0.0-0.0 [facility] Comment on above: Performed By: #### V ERAB #### MELISA Galvan ([id number]) [facility] ([facility]) [address] [place] [address] [place] Platelets (Bld) [#/Vol] 231 x10*3/uL Normal 150-450 [facility] Comment on above: Performed By: #### V ERAB #### MELISA Galvan ([id number]) [facility] ([facility]) [address] [place] [address] [place] RBC (Bld) [#/Vol] 3.30 x10*6/uL Low 4.00-5.20 [facility] Comment on above: Performed By: #### V ERAB #### MELISA Galvan ([id number]) [facility] ([facility]) [address] [place] [address] [place] WBC (Bld) [#/Vol] 5.0 x10*3/uL Normal 4.4-11.3 [facility] Comment on above: Performed By: #### V ERAB #### MELISA Galvan ([id number]) [facility] ([facility]) [id number] [place] [address] [place] CBC panel Auto (Bld)on 06-28 Erythrocyte distribution width (RBC) [Ratio] 13.7 % 11.5 - 14.5 % [facility] Hematocrit (Bld) [Volume fraction] 32.7 % Low 36.0 - 46.0 % [facility] Hemoglobin (Bld) [Mass/Vol] 11.0 g/dL Low 12.0 - 16.0 g/dL [facility] Interpretation and review of laboratory results Abnormal [facility] MCH (RBC) [Entitic mass] 30.7 pg 26.0 - 34.0 pg [facility] MCHC (RBC) [Mass/Vol] 33.6 g/dL 32.0 - 36.0 g/dL [facility] MCV (RBC) [Entitic vol] 91 fL 80 - 100 fL [facility] Nucleated RBC/100 WBC (Bld) [Ratio] 0.0 % [facility] Platelets (Bld) [#/Vol] 246 10*3/uL [facility] RBC (Bld) [#/Vol] 3.58 10*6/uL Low [facility] WBC (Bld) [#/Vol] 5.2 10*3/uL [facility] Erythrocyte distribution width (RBC) [Ratio] 13.7 % Normal 11.5-14.5 [facility] Comment on above: Performed By: #### Beth ERAB #### MELISA Galvan ([id number]) [facility] ([facility]) [address] [place] [address] [place] Hematocrit (Bld) [Volume fraction] 32.7 % Low 36.0-46.0 [facility] Comment on above: Performed By: #### Beth ERAB #### MELISA Galvan ([id number]) [facility] ([facility]) [address] [place] [address] [place] Hemoglobin (Bld) [Mass/Vol] 11.0 g/dL Low 12.0-16.0 [facility] Comment on above: Performed By: #### V ERAB #### MELISA Galvan ([id number]) [facility] ([facility]) [address] [place] [address] US MCH (RBC) [Entitic mass] 30.7 pg Normal 26.0-34.0 [facility] Comment on above: Performed By: #### V ERAB #### MELISA Galvan () [facility] ([facility]) [address] [place] [address] US MCHC (RBC) [Mass/Vol] 33.6 g/dL Normal 32.0-36.0 [facility] Comment on above: Performed By: #### V ERAB #### MELISA Galvan () [facility] ([facility]) [address] [place] [address] US MCV (RBC) [Entitic vol] 91 fL Normal 80-100 [facility] Comment on above: Performed By: #### V ERAB #### MELISA Galvan () [facility] ([facility]) [address] [place] [address] [place] Nucleated RBC/100 WBC (Bld) [Ratio] 0.0 /100 WBCs Normal 0.0-0.0 [facility] Comment on above: Performed By: #### V ERAB #### MELISA Galvan () [facility] ([facility]) [address] [place] [address] [place] Platelets (Bld) [#/Vol] 246 x10*3/uL Normal 150-450 [facility] Comment on above: Performed By: #### V ERAB #### MELISA Galvan () [facility] ([facility]) [address] [place] [address] [place] RBC (Bld) [#/Vol] 3.58 x10*6/uL Low 4.00-5.20 [facility] Comment on above: Performed By: #### V ERAB #### MELISA Galvan () [facility] ([facility]) [address] [place] [address] [place] WBC (Bld) [#/Vol] 5.2 x10*3/uL Normal 4.4-11.3 [facility] Comment on above: Performed By: #### V ERAB #### MELISA ALEXANDRO Galvan ([id number]) [facility] ([facility]) [address] [place] [address] ABDOMEN PELVIS WO IV CONT [facility] 06-29-2023 CT ABDOMEN PELVIS WO IV CONTRAST Interpreted By: Fly West, STUDY: CT ABDOMEN PELVIS WO IV CONTRAST; 06/29/2023 11:09 pm INDICATION: Signs/Symptoms:Abdo kerry pain. COMPARISON: 03/16/2023 ACCESSION NUMBER(S): [id number] ORDERING CLINICIAN: DAVID VALADEZ TECHNIQUE: Axial CT [...] Fly West 06/29/2023 11:53 PM Dictation workstation: [id number] [facility] CT Abdomen WO contraston 1. No acute abdominal or pelvic process. 2. Numerous hepatic hypodense lesions, incompletely characterize, though likely reflecting cysts. Appearance is similar to 03/16/2023. 3. Postsurgical changes as above. Signed by: Fly West 06/29/2023 11:53 PM Dictation workstation: [id number] [facility] Interpreted By: Fly West, STUDY: CT ABDOMEN PELVIS WO IV CONTRAST; 06/29/2023 11:09 pm INDICATION: Signs/Symptoms:Abdo kerry pain. COMPARISON: 03/16/2023 ACCESSION NUMBER(S): [id number] ORDERING CLINICIAN: DAVID VALADEZ TECHNIQUE: Axial CT [...] Signs/Symptoms:Abdo kerry pain. COMPARISON: 03/16/2023 ACCESSION NUMBER(S): [id number] ORDERING CLINICIAN: DAVID VALADEZ TECHNIQUE: Axial CT [...] Fly West 06/29/2023 11:53 PM Dictation workstation: [id number] [facility] Work Phone: Radiology Study observation (narrative) [facility] Work Phone: CT Abdomen WO contrastOrdere d By: Fly West on 06-29-2023 [facility] Work Phone: Comprehensive metabolic 2000 panelon 06-29-2023 Albumin [Mass/Vol] 3.8 g/dL Normal 3.5-5.0 [facility] Comment on above: Performed By: #### V ERAB #### MELISA Galvan () [facility] [address] [place] [address] [place] ALP (Bld) [Catalytic activity/Vol] 51 U/L Normal 35-125 [facility] Comment on above: Performed By: #### V ERAB #### MELISA Galvan () [facility] [address] [place] [address] [place] ALT [Catalytic activity/Vol] 35 U/L Normal 5-40 [facility] Comment on above: Performed By: #### V ERAB #### MELISA Galvan () [facility] ([facility]) [address] [place] [address] [place] Anion gap [Moles/Vol] 13 mmol/L Normal <=19 [facility] Comment on above: Performed By: #### V ERAB #### MELISA Galvan () [facility] [address] [place] [address] US AST [Catalytic activity/Vol] 52 U/L High 5-40 [facility] Comment on above: Performed By: #### V ERAB #### MELISA Galvan () [facility] [address] [place] [address] [place] Bilirubin [Mass/Vol] mg/dL Normal 0.1-1.2 [facility] Comment on above: Performed By: #### V ERAB #### MELISA Galvan () [facility] [address] [place] [address] US Calcium [Mass/Vol] 9.1 mg/dL Normal 8.5-10.4 [facility] Comment on above: Performed By: #### V ERAB #### MELISA Galvan () [facility] [address] [place] [address] [place] Chloride [Moles/Vol] 90 mmol/L Low 97-107 [facility] Comment on above: Performed By: #### V ERAB #### MELISA Galvan ([id number]) [facility] ([facility]) [address] [place] [address] [place] CO2 [Moles/Vol] 19 mmol/L Low 24-31 [facility] Comment on above: Performed By: #### V ERAB #### MELISA Galvan ([id number]) [facility] ([facility]) [address] [place] [address] [place] Creatinine [Mass/Vol] 0.70 mg/dL Normal 0.40-1.60 [facility] Comment on above: Performed By: #### V ERAB #### MELISA Galvan ([id number]) [facility] ([facility]) [address] [place] [address] [place] GFR/1.73 sq M.predicted MDRD (S/P/Bld) [Vol rate/Area] mL/min/{1.73_m2} Normal >60 [facility] Comment on above: Result Comment: Calc ulations of estimated GFR are performed using the 2020 CKD-EPI Study Refit equation without the race variable for the IDMS-Traceable creatinine methods. https://jasn.asnjournals.org/content/early/ASN.57495520 88 Performed By: #### V ERAB #### MELISA Glavan ([id number]) [facility] ([facility]) [address] [place] [address] [place] Glucose [Mass/Vol] 920 mg/dL Critically high 65-99 [facility] Comment on above: Result Comment: Resu lt rechecked Possible IV contamination. Results do not correlate with previous and post results. Patient was redraw . Performed By: #### V ERAB #### MELISA Galvan ([id number]) [facility] ([facility]) [address] [place] [address] [place] Potassium [Moles/Vol] 6.8 mmol/L Critically high 3.4-5.1 [facility] Comment on above: Result Comment: Resu lt rechecked Possible IV contamination. Results do not correlate with previus and post results. Patient was redrawn. Performed By: #### V ERAB #### MELISA Galvan ([id number]) [facility] ([facility]) [address] [place] [address] [place] Protein [Mass/Vol] 6.3 g/dL Normal 5.9-7.9 [facility] Comment on above: Performed By: #### V ERAB #### MELISA Galvan ([id number]) [facility] ([facility]) [address] [place] [address] [place] Sodium [Moles/Vol] 122 mmol/L Low 133-145 [facility] Comment on above: Result Comment: Resu lt rechecked Performed By: #### V ERAB #### MELISA Galvan ([id number]) [facility] ([facility]) [address] [place] [address] [place] Urea nitrogen [Mass/Vol] 15 mg/dL Normal 8-25 [facility] Comment on above: Performed By: #### V ERAB #### MELISA Galvan ([id number]) [facility] ([facility]) [address] [place] [address] [place] Glucose Test strip manual (B ld) [Mass/Vol]on 06-29-2023 Glucose [Mass/Vol] 117 mg/dL High 74 - 99 mg/dL [facility] Interpretation and review of laboratory results Abnormal [facility] Glucose [Mass/Vol] 117 mg/dL High 74-99 [facility] Comment on above: Performed By: #### V ERAB #### MELISA Galvan ([id number]) [facility] ([facility]) [address] [place] [address] [place] Home Health Recordson 2023 Home Health Records [id number] 8#1.00TIFF Normal [facility] Auth for Release of Medical Recordson 06-23-2023 Auth for Release of Medical Records .[id number]. [id number] B#1.00TIFF Normal [facility] ED Note-Physicianon 06-23-19 ED Note-Physician [id number] D5#1.00TIFF Normal [facility] ED Note-Physicianon 06-22-19 ED Note-Physician [id number]#1.00TIFF Normal [facility] ED Note-Physician [id number] 15#1.00TIFF Normal [facility] Lab Reportson 06-22-2023 Lab Reports [id number] 447#1.00TIFF [facility] Provider Letteron 06-22-2023 Provider Letter [facility] RAD - CT Reporton 06-22-2023 RAD - CT Report [id number] 594#1.00TIFF [facility] Home Health Recordson 2023 Home Health Records [id number] 00#1.00TIFF [facility] ALLIED HEALTHon 06-18-2023 ALLIED HEALTH Normal [facility] CBC W Auto Differential pane l (Bld)on 06-18-2023 Basophils (Bld) [#/Vol] 0.04 10*3/uL Normal <0.11 [facility] Comment on above: Order Comment: Speci men Type: BLOOD SPECIMENOrdering Facility: [facility] Address: [address] [place] [address] Performed By: #### 5 7021-8 ####[facility]ORATORYCLIA [id number] [place] [address] [place] Basophils/100 WBC (Bld) 0.8 % Normal [facility] Comment on above: Order Comment: Speci men Type: BLOOD SPECIMENOrdering Facility: [facility] Address: [address] [place] [address] Performed By: #### 5 7021-8 ####[facility] LABORATORYCLIA [id number] [place] [address] [place] Differential cell count method Nom (Bld) Auto Normal [facility] Comment on above: Order Comment: Speci men Type: BLOOD SPECIMENOrdering Facility: [facility] Address: [address] [place] [address] Performed By: #### 5 7021-8 ####[facility] LABORATORYCLIA [id number] [place] [address] [place] Eosinophils (Bld) [#/Vol] 0.13 10*3/uL Normal <0.46 [facility] Comment on above: Order Comment: Speci men Type: BLOOD SPECIMENOrdering Facility: [facility] Address: [address] [place] [address] Performed By: #### 5 7021-8 ####[facility] LABORATORYCLIA [id number] [place] [address] [place] Eosinophils/100 WBC (Bld) 2.8 % Normal [facility] Comment on above: Order Comment: Speci men Type: BLOOD SPECIMENOrdering Facility: [facility] Address: [address] [place] [address] Performed By: #### 5 7021-8 ####[facility] LABORATORYCLIA [id number] [address] [place] Erythrocyte distribution width (RBC) [Ratio] 13.3 % Normal 11.5-15.0 [facility] Comment on above: Order Comment: Speci men Type: BLOOD SPECIMENOrdering Facility: [facility] Address: [address] [place] [address] Performed By: #### 5 7021-8 ####[facility] LABORATORYCLIA [id number] [place] [id number] [place] Hematocrit (Bld) [Volume fraction] 34.6 % Low 36.0-46.0 [facility] Comment on above: Order Comment: Speci men Type: BLOOD SPECIMENOrdering Facility: [facility] Address: [address] [place] [address] Performed By: #### 5 7021-8 ####[facility] LABORATORYCLIA [id number] [place] [id number] [place] Hemoglobin (Bld) [Mass/Vol] 12.0 g/dL Normal 11.5-15.5 [facility] Comment on above: Order Comment: Speci men Type: BLOOD SPECIMENOrdering Facility: [facility] Address: [address] [place] [address] Performed By: #### 5 7021-8 ####[facility] LABORATORYCLIA [id number] [place] [id number] [place] Immature granulocytes (Bld) [#/Vol] 10*3/uL Normal <0.10 [facility] Comment on above: Order Comment: Speci men Type: BLOOD SPECIMENOrdering Facility: [facility] Address: [address] [place] [address] Performed By: #### 5 7021-8 ####[facility] LABORATORYCLIA [id number] [place] [address] [place] Immature granulocytes/100 WBC (Bld) 0.2 % Normal [facility] Comment on above: Order Comment: Speci men Type: BLOOD SPECIMENOrdering Facility: [facility] Address: [address] [place] [address] Performed By: #### 5 7021-8 ####[facility] LABORATORYCLIA [id number] [place] [address] [place] Lymphocytes (Bld) [#/Vol] 1.90 10*3/uL Normal 1.00-4.00 [facility] Comment on above: Order Comment: Speci men Type: BLOOD SPECIMENOrdering Facility: [facility] Address: [address] [place] [address] Performed By: #### 5 7021-8 ####[facility] LABORATORYCLIA [id number] [address] [place] Lymphocytes/100 WBC (Bld) 40.3 % Normal [facility] Comment on above: Order Comment: Speci men Type: BLOOD SPECIMENOrdering Facility: [facility] Address: [address] [place], [place] [address] Performed By: #### 5 7021-8 ####[facility] LABORATORYCLIA [id number] [place] [address] [place] MCH (RBC) [Entitic mass] 30.9 pg Normal 26.0-34.0 [facility] Comment on above: Order Comment: Speci men Type: BLOOD SPECIMENOrdering Facility: [facility] Address: [address] [place] [address] Performed By: #### 5 7021-8 ####[facility] LABORATORYCLIA [id number] [place] [address] [place] MCHC (RBC) [Mass/Vol] 34.7 g/dL Normal 30.5-36.0 [facility] Comment on above: Order Comment: Speci men Type: BLOOD SPECIMENOrdering Facility: [facility] Address: [address] [place] [address] Performed By: #### 5 7021-8 ####[facility] LABORATORYCLIA [id number] [address] [place] MCV (RBC) [Entitic vol] 89.2 fL Normal 80.0-100.0 [facility] Comment on above: Order Comment: Speci men Type: BLOOD SPECIMENOrdering Facility: [facility] Address: [address] [place] [address] Performed By: #### 5 7021-8 ####[facility] LABORATORYCLIA [id number] [address] [place] Monocytes (Bld) [#/Vol] 0.24 10*3/uL Normal <0.87 [facility] Comment on above: Order Comment: Speci men Type: BLOOD SPECIMENOrdering Facility: [facility] Address: [address] [place] [address] Performed By: #### 5 7021-8 ####[facility] LABORATORYCLIA [id number] [address] Monocytes/100 WBC (Bld) 5.1 % Normal [facility] Comment on above: Order Comment: Speci men Type: BLOOD SPECIMENOrdering Facility: [facility] Address: [address] [place] [address] Performed By: #### 5 7021-8 ####[facility] LABORATORYCLIA [id number] [place] [id number] [place] Neutrophils (Bld) [#/Vol] 2.39 10*3/uL Normal 1.45-7.50 [facility] Comment on above: Order Comment: Speci men Type: BLOOD SPECIMENOrdering Facility: [facility] Address: [address] [place] [address] Performed By: #### 5 7021-8 ####[facility] LABORATORYCLIA [id number] [place] [id number] [place] Neutrophils/100 WBC (Bld) 50.8 % Normal [facility] Comment on above: Order Comment: Speci men Type: BLOOD SPECIMENOrdering Facility: [facility] Address: [address] [place] [address] Performed By: #### 5 7021-8 ####[facility] LABORATORYCLIA [id number] [place] [address] [place] Nucleated RBC (Bld) [#/Vol] 10*3/uL Normal <0.01 [facility] Comment on above: Order Comment: Speci men Type: BLOOD SPECIMENOrdering Facility: [facility] Address: [address] [place] [address] Performed By: #### 5 7021-8 ####[facility] LABORATORYCLIA [id number] [place] [id number] [place] Nucleated RBC/100 WBC (Bld) [Ratio] 0.0 /100 WBC Normal [facility] Comment on above: Order Comment: Speci men Type: BLOOD SPECIMENOrdering Facility: [facility] Address: [address] [place] [address] Performed By: #### 5 7021-8 ####[facility] LABORATORYCLIA [id number] [place] [id number] [place] Platelet mean volume (Bld) [Entitic vol] 11.4 fL Normal 9.0-12.7 [facility] Comment on above: Order Comment: Speci men Type: BLOOD SPECIMENOrdering Facility: [facility] Address: [address] [place] [address] Performed By: #### 5 7021-8 ####[facility] LABORATORYCLIA [id number] [place] [id number] [place] Platelets (Bld) [#/Vol] 233 10*3/uL Normal 150-400 [facility] Comment on above: Order Comment: Speci men Type: BLOOD SPECIMENOrdering Facility: [facility] Address: [address] [place] [address] Performed By: #### 5 7021-8 ####[facility] LABORATORYCLIA [id number] [place] [address] [place] RBC (Bld) [#/Vol] 3.88 10*6/uL Low 3.90-5.20 [facility] Comment on above: Order Comment: Speci men Type: BLOOD SPECIMENOrdering Facility: [facility] Address: [address] [place] [address] Performed By: #### 5 7021-8 ####[facility] LABORATORYCLIA [id number] [place] [id number] [place] WBC (Bld) [#/Vol] 4.71 10*3/uL Normal 3.70-11.00 [facility] Comment on above: Order Comment: Speci men Type: BLOOD SPECIMENOrdering Facility: [facility] Address: [address] [place] [address] Performed By: #### 5 7021-8 ####[facility] LABORATORYCLIA [id number] [place] [id number] [place] CNOVon 06-18-2023 CNOV Normal [facility] CONSULTon 06-18-2023 CONSULT Normal [facility] CT ABD/PEL W IVCONon 024 CT ABD/PEL W IVCON Normal [facility] Comprehensive metabolic 2000 panelon 06-18-2023 Albumin [Mass/Vol] 4.5 g/dL Normal 3.9-4.9 [facility] Comment on above: Order Comment: Speci men Type: BLOOD SPECIMENOrdering Facility: [facility] Address: [address] [place] [address] Performed By: #### 1 9123-9, 3040-3, 06314-1 ####[facility] LABORATORYCLIA [id number] [place] [address] [place] ALP [Catalytic activity/Vol] 58 U/L Normal 34-123 [facility] Comment on above: Order Comment: Speci men Type: BLOOD SPECIMENOrdering Facility: [facility] Address: [address] [place] [address] Performed By: #### 1 9123-9, 3040-3, 46404-7 ####[facility] LABORATORYCLIA [id number] [place] [id number] [place] ALT [Catalytic activity/Vol] 13 U/L Normal 7-38 [facility] Comment on above: Order Comment: Speci men Type: BLOOD SPECIMENOrdering Facility: [facility] Address: [address] [place] [address] Performed By: #### 1 9123-9, 3040-3, 99955-4 ####[facility] LABORATORYCLIA [id number] [place] [id number] [place] Anion gap [Moles/Vol] 13 mmol/L Normal 9-18 [facility] Comment on above: Order Comment: Speci men Type: BLOOD SPECIMENOrdering Facility: [facility] Address: [address] [place] [address] Performed By: #### 1 9123-9, 3040-3, 04154-2 ####[facility] LABORATORYCLIA [id number] [place] [address] [place] AST [Catalytic activity/Vol] 31 U/L Normal 13-35 [facility] Comment on above: Order Comment: Speci men Type: BLOOD SPECIMENOrdering Facility: [facility] Address: [address] [place] [address] Performed By: #### 1 9123-9, 3040-3, 61773-8 ####[facility] LABORATORYCLIA [id number] [place] [id number] [place] Bilirubin [Mass/Vol] 0.4 mg/dL Normal 0.2-1.3 [facility] Comment on above: Order Comment: Speci men Type: BLOOD SPECIMENOrdering Facility: [facility] Address: [address] [place] [address] Performed By: #### 1 9123-9, 3040-3, 63476-4 ####[facility] LABORATORYCLIA [id number] [place] [id number] [place] Calcium [Mass/Vol] 9.0 mg/dL Normal 8.5-10.2 [facility] Comment on above: Order Comment: Speci men Type: BLOOD SPECIMENOrdering Facility: [facility] Address: [address] [place] [address] Performed By: #### 1 9123-9, 3039-3, 71413-9 ####[facility] LABORATORYCLIA [id number] [place] [address] [place] Chloride [Moles/Vol] 103 mmol/L Normal 97-105 [facility] Comment on above: Order Comment: Speci men Type: BLOOD SPECIMENOrdering Facility: [facility] Address: [address] [place] [address] Performed By: #### 1 9123-9, 3, 86464-6 ####[facility] LABORATORYCLIA [id number] [place] [id number] [place] CO2 [Moles/Vol] 22 mmol/L Normal 22-30 [facility] Comment on above: Order Comment: Speci men Type: BLOOD SPECIMENOrdering Facility: [facility] Address: [address] [place] [address] Performed By: #### 1 9123-9, 0-3, 68716-4 ####[facility] LABORATORYCLIA [id number] [place] [id number] [place] Creatinine [Mass/Vol] 0.83 mg/dL Normal 0.58-0.96 [facility] Comment on above: Order Comment: Speci men Type: BLOOD SPECIMENOrdering Facility: [facility] Address: [address] [place] [address] Performed By: #### 1 9123-9, 3040-3, 59308-6 ####[facility] LABORATORYCLIA [id number] [place] [id number] [place] Creatinine and Glomerular filtration rate.predicted panel (S/P/Bld) 95 mL/min/1.73m??? Normal >=60 [facility] Comment on above: Order Comment: [facility] Type: BLOOD SPECIMENOrdering Facility: [facility] Address: [address] [place] [address] Result Comment: Jessica mated Glomerular Filtration Rate [...] GFR. Performed By: #### 1 9123-9, 3040-3, 57577-7 ####[facility] LABORATORYCLIA [id number] [place] [id number] [place] Glucose [Mass/Vol] 77 mg/dL Normal 74-99 [facility] Comment on above: Order Comment: Geraldo marrero Type: BLOOD SPECIMENOrdering Facility: [facility] Address: [address] [place] [address] Result Comment: The [place] [employer] (ADA) provides guidance for cutoff [...] Standards of Medical Care in Diabetes 2016, [place] [employer]. Diabetes Care. 2016.39(Suppl 1). Performed By: #### 1 9123-9, 3040-3, 35808-8 ####[facility] LABORATORYCLIA [id number] [place] [address] [place] Potassium [Moles/Vol] 3.4 mmol/L Low 3.7-5.1 [facility] Comment on above: Order Comment: Speci men Type: BLOOD SPECIMENOrdering Facility: [facility] Address: [address] [place] [address] Performed By: #### 1 9123-9, 3040-3, 15228-2 ####[facility] LABORATORYCLIA [id number] [place] [id number] [place] Protein [Mass/Vol] 7.6 g/dL Normal 6.3-8.0 [facility] Comment on above: Order Comment: Speci men Type: BLOOD SPECIMENOrdering Facility: [facility] Address: [address] [place] [address] Performed By: #### 1 9123-9, 3039-3, 36171-2 ####[facility] LABORATORYCLIA [id number] [place] [id number] [place] Sodium [Moles/Vol] 138 mmol/L Normal 136-144 [facility] Comment on above: Order Comment: Speci men Type: BLOOD SPECIMENOrdering Facility: [facility] Address: [address] [place] [address] Performed By: #### 1 9123-9, 3, 52374-7 ####[facility] LABORATORYCLIA [id number] [place] [address] [place] Urea nitrogen [Mass/Vol] 12 mg/dL Normal 7-21 [facility] Comment on above: Order Comment: Speci men Type: BLOOD SPECIMENOrdering Facility: [facility] Address: [address] [place] [address] Performed By: #### 1 9123-9, 3040-3, 74775-9 ####[facility] LABORATORYCLIA [id number] [place] [address] [place] ECG COMPLETEon 06-18-2023 ECG COMPLETE Normal [facility] ED NOTEon 06-18-2023 ED NOTE Normal [facility] ED NOTE HNO ID: [id number] Author: HIEU HERNANDEZ RN Service: ? Author Type: Registered Nurse Type: ED Notes Filed: 06/18/2023 19:05 Note Text: Patient verbalized understanding of discharge instructions and follow up care. Normal [facility] ED NOTE HNO ID: [id number] Author: HIEU HRENANDEZ RN Service: ? Author Type: Registered Nurse Type: ED Notes Filed: 06/18/2023 18:38 Note Text: Long catheter with leg bag inserted and orange juice given via peg tube given per Earnest INMAN verbal order. Normal [facility] ED PROV NOTEon 06-18-2023 ED PROV NOTE Normal [facility] HCG QUALITATIVEon 06-18-2023 HCG, QUALITATIVE Negative Normal Negative [facility] Comment on above: Order Comment: Speci men Type: BLOOD SPECIMENOrdering Facility: [facility] Address: [address] [place] [address] Performed By: #### H CG ####[facility] LABORATORYCLIA [id number] [place] [address] [place] Lipase SerPl-cCncon 06-18-19 24 Lipase [Catalytic activity/Vol] 31 U/L Normal 16-61 [facility] Comment on above: Order Comment: Speci men Type: BLOOD SPECIMENOrdering Facility: [facility] Address: [address] [place] [address] Performed By: #### 1 9123-9, 3040-3, 04201-5 ####[facility] LABORATORYCLIA [id number] [place] [id number] [place] Magnesium SerPl-mCncon 06-17 Magnesium [Mass/Vol] 2.0 mg/dL Normal 1.7-2.3 [facility] Comment on above: Order Comment: Speci men Type: BLOOD SPECIMENOrdering Facility: [facility] Address: [address] [place] [address] Performed By: #### 1 9123-9, 3040-3, 74298-1 ####[facility] LABORATORYCLIA [id number] [place] [id number] [facility] Urinalysis complete panel (U )on 06-18-2023 Bacteria LM.HPF (Urine sed) [#/Area] Rare Abnormal None Seen [facility] Comment on above: Order Comment: Speci men Type: URINE SPECIMENOrdering Facility: [facility] Address: [address] [place] [address] Performed By: #### 2 4356-8 ####[facility] LABORATORYCLIA [id number] [address] [place] Bilirubin Ql (U) Negative Normal Negative [facility] Comment on above: Order Comment: Speci men Type: URINE SPECIMENOrdering Facility: [facility] Address: [address] [place] [address] Performed By: #### 2 4356-8 ####[facility] LABORATORYCLIA [id number] [address] [place] Clarity (Unsp spec) Clear Normal Clear [facility] Comment on above: Order Comment: Speci men Type: URINE SPECIMENOrdering Facility: [facility] Address: [address] [place] [address] Performed By: #### 2 4356-8 ####[facility] LABORATORYCLIA [id number] [address] Color (U) Light Yellow Normal Yellow [facility] Comment on above: Order Comment: Speci men Type: URINE SPECIMENOrdering Facility: [facility] Address: [address] [place] [address] Performed By: #### 2 4356-8 ####[facility] LABORATORYCLIA [id number] [address] [place] Epithelial cells LM.HPF (Urine sed) [#/Area] Few Normal [facility] Comment on above: Order Comment: Speci men Type: URINE SPECIMENOrdering Facility: [facility] Address: [address] [place] [address] Performed By: #### 2 4356-8 ####[facility] LABORATORYCLIA [id number] [address] Glucose Test strip (U) [Mass/Vol] Negative Normal Trace, Negative [facility] Comment on above: Order Comment: Speci men Type: URINE SPECIMENOrdering Facility: [facility] Address: [address] [place] [address] Performed By: #### 2 4356-8 ####[facility] LABORATORYCLIA [id number] [place] [address] [place] Hemoglobin Ql (U) Negative Normal Negative, Trace Fa [facility] Comment on above: Order Comment: Speci men Type: URINE SPECIMENOrdering Facility: [facility] Address: [address] [place] [address] Performed By: #### 2 4356-8 ####[facility] LABORATORYCLIA [id number] [address] [place] Ketones Ql (U) Negative Normal Negative, Trace [facility] Comment on above: Order Comment: Speci men Type: URINE SPECIMENOrdering Facility: [facility] Address: [address] [place] [address] Performed By: #### 2 4356-8 ####[facility] LABORATORYCLIA [id number] [address] Leukocyte esterase Test strip Ql (U) Negative Normal Negative, 25 Patito/uL [facility] Comment on above: Order Comment: Speci men Type: URINE SPECIMENOrdering Facility: [facility] Address: [address] [place] [address] Performed By: #### 2 4356-8 ####[facility] LABORATORYCLIA [id number] [address] [place] Nitrite Ql (U) Negative Normal Negative [facility] Comment on above: Order Comment: Speci men Type: URINE SPECIMENOrdering Facility: [facility] Address: [address] [place] [address] Performed By: #### 2 4356-8 ####[facility] LABORATORYCLIA [id number] [address] [place] pH (U) 7.5 [pH] Normal 5.0-8.0 [facility] Comment on above: Order Comment: Speci men Type: URINE SPECIMENOrdering Facility: [facility] Address: [address] [place] [address] Performed By: #### 2 4356-8 ####[facility] LABORATORYCLIA [id number] [place] [address] [place] Protein (U) [Mass/Vol] Negative Normal Trace, Negative [facility] Comment on above: Order Comment: Speci men Type: URINE SPECIMENOrdering Facility: [facility] Address: [address] [place] [address] Performed By: #### 2 4356-8 ####[facility] LABORATORYCLIA [id number] [address] [place] RBC LM.HPF (Urine sed) [#/Area] 0-3 /HPF Normal 0-3 /HPF [facility] Comment on above: Order Comment: Speci men Type: URINE SPECIMENOrdering Facility: [facility] Address: [address] [place] [address] Performed By: #### 2 4356-8 ####[facility] LABORATORYCLIA [id number] [address] [place] Specific gravity (U) [Rel density] 1.009 Normal 1.005-1.030 [facility] Comment on above: Order Comment: Speci men Type: URINE SPECIMENOrdering Facility: [facility] Address: [address] [place] [address] Performed By: #### 2 4356-8 ####[facility] LABORATORYCLIA [id number] [address] [place] Urobilinogen Ql (U) Normal Normal Normal [facility] Comment on above: Order Comment: Speci men Type: URINE SPECIMENOrdering Facility: [facility] Address: [address] [place] [address] Performed By: #### 2 4356-8 ####[facility] LABORATORYCLIA [id number] [address] [place] WBC LM.HPF (Urine sed) [#/Area] 0-5 /HPF Normal 0-5 /HPF [facility] Comment on above: Order Comment: Speci men Type: URINE SPECIMENOrdering Facility: [facility] Address: [place] [address] Performed By: #### 2 4356-8 ####[facility] LABORATORYCLIA [id number] [place] [address] [place] CNPNon 06-17-2023 CNPN Normal [facility] Home Health Recordson 2023 Home Health Records [id number] B4#1.00TIFF Normal [facility] Physician Referralon 024 Physician Referral [id number] 101#1.00TIFF Normal [facility] Provider Letteron 06-16-2023 Provider Letter Normal [facility] CNPNon 06-15-2023 CNPN Normal [facility] ED Note-Physicianon 06-15-19 24 ED Note-Physician [id number] D0#1.00TIFF Normal [facility] Outside Hospital Correspo ndenceon 06-15-2023 Outside [facility] Correspondence [id number] A2#1.00TIFF Normal [facility] Physician Referralon 024 Physician Referral [id number] 38#1.00TIFF Normal [facility] RAD - CT Reporton 06-15-2023 RAD - CT Report [id number] F9#1.00TIFF Normal [facility] Transfer Inon 06-15-2023 Transfer In [id number] 80#1.00TIFF Normal [facility] Ambulatory Visit Summaryon 0 06-14-2023 Ambulatory Visit Summary Normal [address] [place] [address] [place] [address]- \.br\ Medications\.br\ What How Much When Why [...] us for your care.\.br\ \.br\ [facility] Auth for Release of Medical Recordson 06-14-2023 Auth for Release of Medical Records [id number] E3#1.00TIFF Normal [facility] CNPNon 06-14-2023 CNPN Normal [facility] Family Medicine Office/Clini c Noteon 06-14-2023 Family Medicine Office/Clinic Note Normal [facility] Comment on above: Result Comment: Elec tronically Signed By: Jaquan Paula\.br\Date and Time Signed: 06/14/23 13:22 EDT Home Health Recordson 2023 Home Health Records [id number] E4#1.00TIFF Normal [facility] Population Healthon 06-11-19 Population Health Normal [facility] Home Health Recordson 2023 Home Health Records [id number] 22#1.00TIFF Normal [facility] Retail - Clinical Noteon Retail - Clinical Note [id number] F2#1.00TIFF Normal [facility] ALLIED HEALTHon 06-09-2023 ALLIED HEALTH Normal [facility] Basic metabolic 2000 panelon 06-09-2023 Anion gap [Moles/Vol] 7 mmol/L Low 9-18 [facility] Comment on above: Order Comment: Speci men Type: BLOOD SPECIMENOrdering Facility: [facility] Address: [address] [place] [address] Performed By: #### 2 4321-2 ####[facility] LABORATORYCLIA [id number] [place] [address] [place] Calcium [Mass/Vol] 8.6 mg/dL Normal 8.5-10.2 [facility] Comment on above: Order Comment: Speci men Type: BLOOD SPECIMENOrdering Facility: [facility] Address: [address] [place] [address] Performed By: #### 2 4321-2 ####[facility]ORATORYCLIA [id number] [place] [address] [place] Chloride [Moles/Vol] 107 mmol/L High 97-105 [facility] Comment on above: Order Comment: Speci men Type: BLOOD SPECIMENOrdering Facility: [facility] Address: [address] [place] [address] Performed By: #### 2 4321-2 ####[facility]ORATORYIA [id number] [place] [address] [place] CO2 [Moles/Vol] 24 mmol/L Normal 22-30 [facility] Comment on above: Order Comment: Speci men Type: BLOOD SPECIMENOrdering Facility: [facility] Address: [address] [place] [id number] Performed By: #### 2 4321-2 ####[facility]ORATORYCLIA [id number] [place] [address] [place] Creatinine [Mass/Vol] 0.68 mg/dL Normal 0.58-0.96 [facility] Comment on above: Order Comment: Speci men Type: BLOOD SPECIMENOrdering Facility: [facility] Address: [address] [place] [address] Performed By: #### 2 4321-2 ####[facility]ORATORYCLIA [id number] [place] [address] [place] Creatinine and Glomerular filtration rate.predicted panel (S/P/Bld) 117 mL/min/1.73m??? Normal >=60 [facility] Comment on above: Order Comment: Speci men Type: BLOOD SPECIMENOrdering Facility: [facility] Address: [address] [place] [address] Result Comment: Jessica mated Glomerular Filtration Rate [...] actual GFR. Performed By: #### 2 4321-2 ####[facility] [id number] [place] [address] [place] Glucose [Mass/Vol] 89 mg/dL Normal 74-99 [facility]ital Comment on above: Order Comment: Speci men Type: BLOOD SPECIMENOrdering Facility: [facility] Address: [address] [id number] Result Comment: The [place] [employer] (ADA) provides guidance for cutoff [...] Standards of Medical Care in Diabetes 2016, [place] [employer]. Diabetes Care. 2016.39(Suppl 1). Performed By: #### 2 4321-2 ####[facility] [id number] [place] [address] [place] Potassium [Moles/Vol] 4.1 mmol/L Normal 3.7-5.1 [facility] Comment on above: Order Comment: Geraldo marrero Type: BLOOD SPECIMENOrdering Facility: [facility] Address: [address] [place] [address] Performed By: #### 2 4321-2 ####[facility] [id number] [place] [address] [place] Sodium [Moles/Vol] 138 mmol/L Normal 136-144 [facility] Comment on above: Order Comment: Geraldo marrero Type: BLOOD SPECIMENOrdering Facility: [facility] Address: [address] [place] [address] Performed By: #### 2 4321-2 ####[facility] [id number] [place] [address] [place] Urea nitrogen [Mass/Vol] 10 mg/dL Normal 7-21 [facility] Comment on above: Order Comment: Lyssai elida Type: BLOOD SPECIMENOrdering Facility: [facility] Address: [address] [place] [address] Performed By: #### 2 4321-2 ####[facility] [id number] [place] [address] [place] CASE MANAGEMon 06-09-2023 CASE MANAGEM Normal [facility] CNDSon 06-09-2023 CNDS Normal [facility] CONSULT PROGon 06-08-2023 CONSULT PROG Normal [facility] TOXICOLOGY SCREEN, ROUTINE U RINEon 06-08-2023 Amphetamines Confirm (U) [Mass/Vol] Negative Normal Negative [facility] Comment on above: Order Comment: Speci men Type: URINE SPECIMENOrdering Facility: [facility] Address: [address] [place] [address] Result Comment: Cuto ff threshold at 1000 ng/mL. Performed By: #### U TOX2 ####[facility] [id number] [place] [address] [place] BARBITURATES, URINE Negative Normal Negative [facility] Comment on above: Order Comment: Speci men Type: URINE SPECIMENOrdering Facility: [facility] Address: [address] [place] [address] Result Comment: Cuto ff threshold at 200 ng/mL. Performed By: #### U TOX2 ####[facility] [id number] [place] [address] [place] BENZODIAZEPINES, UR Negative Normal Negative [facility] Comment on above: Order Comment: Speci men Type: URINE SPECIMENOrdering Facility: [facility] Address: [address] [place] [address] Result Comment: Cuto ff threshold at 200 ng/mL. Performed By: #### U TOX2 ####[facility] [id number] [place] [address] [place] Cannabinoids Screen Ql (U) Negative Normal Negative [facility] Comment on above: Order Comment: Speci men Type: URINE SPECIMENOrdering Facility: [facility] Address: [address] [place] [address] Result Comment: Cuto ff threshold at 50 ng/mL. Performed By: #### U TOX2 ####[facility] [id number] [place] [address] [place] Cocaine Ql (U) Negative Normal Negative [facility] Comment on above: Order Comment: Speci men Type: URINE SPECIMENOrdering Facility: [facility] Address: [address] [place] [address] Result Comment: Cuto ff threshold at 300 ng/mL. Performed By: #### U TOX2 ####[facility] [id number] [place] [address] [place] Ethanol (U) [Mass/Vol] <11 Normal <11 [facility] Comment on above: Order Comment: Speci men Type: URINE SPECIMENOrdering Facility: [facility] Address: [address] [place] [address] Performed By: #### U TOX2 ####[facility] [id number] [place] [address] [facility] [place] Opiates Screen Ql (U) Negative Normal Negative [facility] Comment on above: Order Comment: Speci men Type: URINE SPECIMENOrdering Facility: [facility] Address: [address] [place] [address] Result Comment: Cuto ff threshold at 300 ng/mL. Performed By: #### U TOX2 ####[facility] [id number] [address] [place] [id number] [place] oxyCODONE cutoff Screen (U) [Mass/Vol] Negative Normal Negative [facility] Comment on above: Order Comment: Speci men Type: URINE SPECIMENOrdering Facility: [facility] Address: [address] [place] [address] Result Comment: Cuto ff threshold at 100 ng/mL. Performed By: #### U TOX2 ####[facility] [id number] [place] [id number] [place] Phencyclidine Ql (U) Negative Normal Negative [facility] Comment on above: Order Comment: Speci men Type: URINE SPECIMENOrdering Facility: [facility] Address: [address] [place] [address] Result Comment: Cuto ff threshold at 25 ng/mL. Performed By: #### U TOX2 ####[facility] [id number] [place] [address] [place] Basic metabolic 2000 panelon 06-07-2023 Anion gap [Moles/Vol] 9 mmol/L Normal -18 [facility] Comment on above: Order Comment: Speci men Type: BLOOD SPECIMENOrdering Facility: [facility] Address: [address] [place] [address] Performed By: #### 2 4321-2 ####[facility] [id number] [place] [address] [place] Calcium [Mass/Vol] 8.7 mg/dL Normal 8.5-10.2 [facility] Comment on above: Order Comment: Speci men Type: BLOOD SPECIMENOrdering Facility: [facility] Address: [address] [place] [address] Performed By: #### 2 4321-2 ####[facility] [id number] [place] [address] [place] Chloride [Moles/Vol] 108 mmol/L High 97-105 [facility] Comment on above: Order Comment: Speci men Type: BLOOD SPECIMENOrdering Facility: [facility] Address: [address] [place] [address] Performed By: #### 2 4321-2 ####[facility] [id number] [place] [address] [place] CO2 [Moles/Vol] 23 mmol/L Normal 22-30 [facility] Comment on above: Order Comment: Speci men Type: BLOOD SPECIMENOrdering Facility: [facility] Address: [address] [place] [address] Performed By: #### 2 4321-2 ####[facility] [id number] [place] [address] [place] Creatinine [Mass/Vol] 0.68 mg/dL Normal 0.58-0.96 [facility] Comment on above: Order Comment: Speci men Type: BLOOD SPECIMENOrdering Facility: [facility] Address: [address] [place] [address] Performed By: #### 2 4321-2 ####[facility] [id number] [place] [address] [place] Creatinine and Glomerular filtration rate.predicted panel (S/P/Bld) 117 mL/min/1.73m??? Normal >=60 [facility] Comment on above: Order Comment: Geraldo marrero Type: BLOOD SPECIMENOrdering Facility: [facility] Address: [address] [place] [address] Result Comment: Jessica mated Glomerular Filtration Rate [...] actual GFR. Performed By: #### 2 4321-2 ####[facility]ORYCLIA [id number] [place] [address] [place] Glucose [Mass/Vol] 98 mg/dL Normal 74-99 [facility]ital Comment on above: Order Comment: Geraldo marrero Type: BLOOD SPECIMENOrdering Facility: [facility] Address: [address] [place] [address] Result Comment: The [place] Diabetes Association (ADA) provides guidance for cutoff [...] Standards of Medical Care in Diabetes 2016, [place] [employer]. Diabetes Care. 2016.39(Suppl 1). Performed By: #### 2 4321-2 ####[facility]ORYCLIA [id number] [place] [address] [place] Potassium [Moles/Vol] 4.2 mmol/L Normal 3.7-5.1 [facility] Comment on above: Order Comment: Geraldo marrero Type: BLOOD SPECIMENOrdering Facility: [facility] Address: [address] [place] [address] Performed By: #### 2 4321-2 ####[facility] [id number] [place] [address] [place] Sodium [Moles/Vol] 140 mmol/L Normal 136-144 [facility] Comment on above: Order Comment: Speci men Type: BLOOD SPECIMENOrdering Facility: [facility] Address: [address] [place] [address] Performed By: #### 2 4321-2 ####[facility] [id number] [place] [address] [place] Urea nitrogen [Mass/Vol] 9 mg/dL Normal 7-21 [facility] Comment on above: Order Comment: Speci men Type: BLOOD SPECIMENOrdering Facility: [facility] Address: [address] [place] [address] Performed By: #### 2 4321-2 ####[facility] [id number] [place] [address] [place] CASE MGT INIT [facility] 2023 CASE MGT INIT [facility] CBC panel Auto (Bld)on 06-06 Erythrocyte distribution width (RBC) [Ratio] 13.7 % Normal 11.5-15.0 [facility] Comment on above: Order Comment: Speci men Type: BLOOD SPECIMENOrdering Facility: [facility] Address: [address] [place] [address] Performed By: #### 5 8410-2 ####[facility] [id number] [place] [address] [place] Hematocrit (Bld) [Volume fraction] 32.6 % Low 36.0-46.0 [facility] Comment on above: Order Comment: Speci men Type: BLOOD SPECIMENOrdering Facility: [facility] Address: [address] [place] [address] Performed By: #### 5 8410-2 ####[facility] [id number] [place] [address] [place] Hemoglobin (Bld) [Mass/Vol] 10.8 g/dL Low 11.5-15.5 [facility] Comment on above: Order Comment: Speci men Type: BLOOD SPECIMENOrdering Facility: [facility] Address: [address] [place] [address] Performed By: #### 5 8410-2 ####[facility] [id number] [address] [place] MCH (RBC) [Entitic mass] 29.9 pg Normal 26.0-34.0 [facility] Comment on above: Order Comment: Speci men Type: BLOOD SPECIMENOrdering Facility: [facility] Address: [address] [place] [address] Performed By: #### 5 8410-2 ####[facility] [id number] [address] [place] MCHC (RBC) [Mass/Vol] 33.1 g/dL Normal 30.5-36.0 [facility] Comment on above: Order Comment: Speci men Type: BLOOD SPECIMENOrdering Facility: [facility] Address: [address] [place] [address] Performed By: #### 5 8410-2 ####[facility] [id number] [address] [place] MCV (RBC) [Entitic vol] 90.3 fL Normal 80.0-100.0 [facility] Comment on above: Order Comment: Speci men Type: BLOOD SPECIMENOrdering Facility: [facility] Address: [address] [place] [address] Performed By: #### 5 8410-2 ####[facility] [id number] [address] [place] Nucleated RBC (Bld) [#/Vol] 10*3/uL Normal <0.01 [facility] Comment on above: Order Comment: Speci men Type: BLOOD SPECIMENOrdering Facility: [facility] Address: [address] [place] [address] Performed By: #### 5 8410-2 ####[facility] [id number] [place] [address] [place] Platelet mean volume (Bld) [Entitic vol] 10.5 fL Normal 9.0-12.7 [facility] Comment on above: Order Comment: Speci men Type: BLOOD SPECIMENOrdering Facility: [facility] Address: [address] [place] [address] Performed By: #### 5 8410-2 ####[facility] [id number] [place] [address] [place] Platelets (Bld) [#/Vol] 258 10*3/uL Normal 150-400 [facility] Comment on above: Order Comment: Speci men Type: BLOOD SPECIMENOrdering Facility: [facility] Address: [address] [place] [address] Performed By: #### 5 8410-2 ####[facility] [id number] [place] [address] [place] RBC (Bld) [#/Vol] 3.61 10*6/uL Low 3.90-5.20 [facility] Comment on above: Order Comment: Speci men Type: BLOOD SPECIMENOrdering Facility: [facility] Address: [address] [place] [address] Performed By: #### 5 8410-2 ####[facility] [id number] [place] [address] [place] WBC (Bld) [#/Vol] 3.65 10*3/uL Low 3.70-11.00 [facility] Comment on above: Order Comment: Speci men Type: BLOOD SPECIMENOrdering Facility: [facility] Address: [address] [place] [address] Performed By: #### 5 8410-2 ####[facility] [id number] [place] [address] [place] CONSULTon 06-07-2023 CONSULT Normal [facility] CONSULT Normal [facility] NUTRITIONon 06-07-2023 NUTRITION Normal [facility] CBC W Auto Differential pane l (Bld)on 06-06-2023 Basophils (Bld) [#/Vol] 0.05 10*3/uL Normal <0.11 [facility] Comment on above: Order Comment: Speci men Type: BLOOD SPECIMENOrdering Facility: [facility] Address: [address] [place] [address] Performed By: #### 5 7021-8 ####[facility]ORYCLIA [id number] [place] [address] [place] Basophils/100 WBC (Bld) 1.0 % [facility] Comment on above: Order Comment: Speci men Type: BLOOD SPECIMENOrdering Facility: [facility] Address: [address] [place] [address] Performed By: #### 5 7021-8 ####[facility]ORY[facility] [id number] [place] [address] [place] Differential cell count method Nom (Bld) Auto Normal [facility] Comment on above: Order Comment: Speci men Type: BLOOD SPECIMENOrdering Facility: [facility] Address: [address] [place] [address] Performed By: #### 5 7021-8 ####[facility]ORYCLIA [id number] [place] [address] [place] Eosinophils (Bld) [#/Vol] 0.11 10*3/uL Normal <0.46 [facility] Comment on above: Order Comment: Speci men Type: BLOOD SPECIMENOrdering Facility: [facility] Address: [address] [place] [address] Performed By: #### 5 7021-8 ####[facility]ORYCLIA [id number] [place] [address] [place] Eosinophils/100 WBC (Bld) 2.2 % Normal [facility] Comment on above: Order Comment: Speci men Type: BLOOD SPECIMENOrdering Facility: [facility] Address: [address] [place] [address] Performed By: #### 5 7021-8 ####[facility] [id number] [place] [address] [place] Erythrocyte distribution width (RBC) [Ratio] 13.4 % Normal 11.5-15.0 [facility] Comment on above: Order Comment: Speci men Type: BLOOD SPECIMENOrdering Facility: [facility] Address: [address] [place] [address] Performed By: #### 5 7021-8 ####[facility] [id number] [place] [id number] [place] Hematocrit (Bld) [Volume fraction] 35.9 % Low 36.0-46.0 [facility] Comment on above: Order Comment: Speci men Type: BLOOD SPECIMENOrdering Facility: [facility] Address: [address] [place] [address] Performed By: #### 5 7021-8 ####[facility] [id number] [place] [address] [place] Hemoglobin (Bld) [Mass/Vol] 12.2 g/dL Normal 11.5-15.5 [facility] Comment on above: Order Comment: Speci men Type: BLOOD SPECIMENOrdering Facility: [facility] Address: [address] [place] [address] Performed By: #### 5 7021-8 ####[facility] [id number] [place] [id number] [place] Immature granulocytes (Bld) [#/Vol] 10*3/uL Normal <0.10 [facility] Comment on above: Order Comment: Speci men Type: BLOOD SPECIMENOrdering Facility: [facility] Address: [address] [place] [address] Performed By: #### 5 7021-8 ####[facility] [id number] [place] [address] [place] Immature granulocytes/100 WBC (Bld) 0.2 % Normal [facility] Comment on above: Order Comment: Speci men Type: BLOOD SPECIMENOrdering Facility: [facility] Address: [address] [place] [address] Performed By: #### 5 7021-8 ####[facility]ORY[facility] [id number] [place] [address] [place] Lymphocytes (Bld) [#/Vol] 1.70 10*3/uL Normal 1.00-4.00 [facility] Comment on above: Order Comment: Speci men Type: BLOOD SPECIMENOrdering Facility: [facility] Address: [address] [place] [address] Performed By: #### 5 7021-8 ####[facility] [id number] [place] [address] [place] Lymphocytes/100 WBC (Bld) 33.3 % Normal [facility] Comment on above: Order Comment: Speci men Type: BLOOD SPECIMENOrdering Facility: [facility] Address: [address] [place] [address] Performed By: #### 5 7021-8 ####[facility] [id number] [place] [id number] [place] MCH (RBC) [Entitic mass] 30.1 pg Normal 26.0-34.0 [facility] Comment on above: Order Comment: Speci men Type: BLOOD SPECIMENOrdering Facility: [facility] Address: [address] [place] [address] Performed By: #### 5 7021-8 ####[facility] [id number] [place] [address] [place] MCHC (RBC) [Mass/Vol] 34.0 g/dL Normal 30.5-36.0 [facility] Comment on above: Order Comment: Speci men Type: BLOOD SPECIMENOrdering Facility: [facility] Address: [address] [place] [address] Performed By: #### 5 7021-8 ####[facility]ORY[facility] [id number] [place] [address] [place] MCV (RBC) [Entitic vol] 88.6 fL Normal 80.0-100.0 [facility] Comment on above: Order Comment: Speci men Type: BLOOD SPECIMENOrdering Facility: [facility] Address: [address] [place] [address] Performed By: #### 5 7021-8 ####[facility]ORY[facility] [id number] [place] [address] [place] Monocytes (Bld) [#/Vol] 0.42 10*3/uL Normal <0.87 [facility] Comment on above: Order Comment: Speci men Type: BLOOD SPECIMENOrdering Facility: [facility] Address: [address] [place] [address] Performed By: #### 5 7021-8 ####[facility] [id number] [place] [address] [place] Monocytes/100 WBC (Bld) 8.2 % Normal [facility] Comment on above: Order Comment: Speci men Type: BLOOD SPECIMENOrdering Facility: [facility] Address: [address] [place] [address] Performed By: #### 5 7021-8 ####[facility] [id number] [place] [address] [place] Neutrophils (Bld) [#/Vol] 2.81 10*3/uL Normal 1.45-7.50 [facility] Comment on above: Order Comment: Speci men Type: BLOOD SPECIMENOrdering Facility: [facility] Address: [address] [place] [address] Performed By: #### 5 7021-8 ####[facility] [id number] [place] [id number] [place] Neutrophils/100 WBC (Bld) 55.1 % Normal [facility] Comment on above: Order Comment: Speci men Type: BLOOD SPECIMENOrdering Facility: [facility] Address: [address] [place] [address] Performed By: #### 5 7021-8 ####[facility] [id number] [place] [address] [place] Nucleated RBC (Bld) [#/Vol] 10*3/uL Normal <0.01 [facility] Comment on above: Order Comment: Speci men Type: BLOOD SPECIMENOrdering Facility: [facility] Address: [address] [place] [address] Performed By: #### 5 7021-8 ####[facility] [id number] [place] [address] [place] Nucleated RBC/100 WBC (Bld) [Ratio] 0.0 /100 WBC Normal [facility] Comment on above: Order Comment: Speci men Type: BLOOD SPECIMENOrdering Facility: [facility] Address: [address] [place] [address] Performed By: #### 5 7021-8 ####[facility] [id number] [place] [address] [place] Platelet mean volume (Bld) [Entitic vol] 10.3 fL Normal 9.0-12.7 [facility] Comment on above: Order Comment: Speci men Type: BLOOD SPECIMENOrdering Facility: [facility] Address: [address] [place] [address] Performed By: #### 5 7021-8 ####[facility] [id number] [place] [address] [place] Platelets (Bld) [#/Vol] 323 10*3/uL Normal 150-400 [facility] Comment on above: Order Comment: Speci men Type: BLOOD SPECIMENOrdering Facility: [facility] Address: [address] [place] [address] Performed By: #### 5 7021-8 ####[facility] [id number] [place] [address] [place] RBC (Bld) [#/Vol] 4.05 10*6/uL Normal 3.90-5.20 [facility] Comment on above: Order Comment: Speci men Type: BLOOD SPECIMENOrdering Facility: [facility] Address: [address] [place] [address] Performed By: #### 5 7021-8 ####[facility]ORY[facility]IA [id number] [place] [address] [place] WBC (Bld) [#/Vol] 5.10 10*3/uL Normal 3.70-11.00 [facility] Comment on above: Order Comment: Speci men Type: BLOOD SPECIMENOrdering Facility: [facility] Address: [address] [place] [address] Performed By: #### 5 7021-8 ####[facility]ORY[facility] [id number] [place] [address] [place] ABD/PEL W IVCONon 024 CT ABD/PEL W IVCON Normal [facility]ital Comprehensive metabolic 2000 panelon 06-06-2023 Albumin [Mass/Vol] 4.3 g/dL Normal 3.9-4.9 [facility] Comment on above: Order Comment: Speci men Type: BLOOD SPECIMENOrdering Facility: [facility] Address: [address] [place] [address] Performed By: #### 2 4323-8, 3039-3, ####[facility]ORYCLIA [id number] [place] [address] [place] ALP [Catalytic activity/Vol] 62 U/L Normal 34-123 [facility] Comment on above: Order Comment: Speci men Type: BLOOD SPECIMENOrdering Facility: [facility] Address: [address] [place] [address] Performed By: #### 2 4323-8, 0-3, ####[facility]ORYCLIA [id number] [place] [address] [place] ALT [Catalytic activity/Vol] 16 U/L Normal 7-38 [facility] Comment on above: Order Comment: Speci men Type: BLOOD SPECIMENOrdering Facility: [facility] Address: [address] [place] [address] Performed By: #### 2 4323-8, 0-3, ####[facility]ATORYIA [id number] [place] [address] [place] Anion gap [Moles/Vol] 10 mmol/L Normal 9-18 [facility] Comment on above: Order Comment: Speci men Type: BLOOD SPECIMENOrdering Facility: [facility] Address: [address] [place] [address] Performed By: #### 2 4323-8, 3039-3, ####[facility]ITALIA [id number] [place] [address] [place] TERRELL AST [Catalytic activity/Vol] 28 U/L Normal 13-35 [facility] Comment on above: Order Comment: Speci men Type: BLOOD SPECIMENOrdering Facility: [facility] Address: [address] [place] [address] Performed By: #### 2 4323-8, 3039-3, ####[facility]IA [id number] [place] [address] [place] Bilirubin [Mass/Vol] 0.3 mg/dL Normal 0.2-1.3 [facility] Comment on above: Order Comment: Speci men Type: BLOOD SPECIMENOrdering Facility: [facility] Address: [address] [place] [address] Performed By: #### 2 4323-8, 0-3, ####[facility] [id number] [place] [address] [place] Calcium [Mass/Vol] 9.1 mg/dL Normal 8.5-10.2 [facility] Comment on above: Order Comment: Speci men Type: BLOOD SPECIMENOrdering Facility: [facility] Address: [address] [place] [address] Performed By: #### 2 4323-8, 3040-3, ####[facility]ORY[facility] [id number] [place] [address] [place] Chloride [Moles/Vol] 103 mmol/L Normal 97-105 [facility] Comment on above: Order Comment: Speci men Type: BLOOD SPECIMENOrdering Facility: [facility] Address: [address] [place] [address] Performed By: #### 2 4323-8, 0-3, ####[facility]ORYIA [id number] [place] [address] [place] CO2 [Moles/Vol] 23 mmol/L Normal 22-30 [facility] Comment on above: Order Comment: Speci men Type: BLOOD SPECIMENOrdering Facility: [facility] Address: [address] [place] [address] Performed By: #### 2 4323-8, 3, ####[facility] [id number] [place] [address] [place] Creatinine [Mass/Vol] 0.74 mg/dL Normal 0.58-0.96 [facility] Comment on above: Order Comment: Speci men Type: BLOOD SPECIMENOrdering Facility: [facility] Address: [address] [place] [address] Performed By: #### 2 4323-8, 03, ####[facility]ORYIA [id number] [place] [address] [place] Creatinine and Glomerular filtration rate.predicted panel (S/P/Bld) 109 mL/min/1.73m??? Normal >=60 [facility] Comment on above: Order Comment: Speci men Type: BLOOD SPECIMENOrdering Facility: [facility] Address: [address] [place] [address] Result Comment: Jessica mated Glomerular Filtration Rate [...] GFR. Performed By: #### 2 4323-8, 0-3, ####[facility]ORYCLIA [id number] [place] [address] [place] Glucose [Mass/Vol] 91 mg/dL Normal 74-99 [facility] Comment on above: Order Comment: Geraldo marrero Type: BLOOD SPECIMENOrdering Facility: [facility] Address: [address] [place] [place] [address] Result Comment: The [place] Diabetes Association (ADA) provides guidance for cutoff [...] Standards of Medical Care in Diabetes 2016, [place] [employer] Association. Diabetes Care. 2016.39(Suppl 1). Performed By: #### 2 4323-8, 3039-3, ####[facility]ORYCLIA [id number] [place] [address] [place] Potassium [Moles/Vol] 4.0 mmol/L Normal 3.7-5.1 [facility] Comment on above: Order Comment: Geraldo marrero Type: BLOOD SPECIMENOrdering Facility: [facility] Address: [address] [place] [address] Performed By: #### 2 4323-8, 3039-3, ####[facility]ORYCLIA [id number] [place] [address] [place] Protein [Mass/Vol] 7.4 g/dL Normal 6.3-8.0 [facility] Comment on above: Order Comment: Speci men Type: BLOOD SPECIMENOrdering Facility: [facility] Address: [address] [place] [address] Performed By: #### 2 4323-8, 0-3, ####[facility]ORYCLIA [id number] [place] [address] [place] Sodium [Moles/Vol] 136 mmol/L Normal 136-144 [facility] Comment on above: Order Comment: Speci men Type: BLOOD SPECIMENOrdering Facility: [facility] Address: [address] [place] [address] Performed By: #### 2 4323-8, 3, ####[facility] [id number] [place], [place] [address] [place] [address] STATES OF [facility] Urea nitrogen [Mass/Vol] 14 mg/dL Normal - [facility] Comment on above: Order Comment: Speci men Type: BLOOD SPECIMENOrdering Facility: [facility] Address: [address] [place], [place] [address] Performed By: #### 2 4323-8, 3, ####[facility]IA [id number] [place] [address] [place] ECG COMPLETEon 06-06-2023 ECG COMPLETE Normal [facility] ED NOTEon 06-06-2023 ED NOTE Normal [facility] ED NOTE Normal [facility] ED PROV NOTEon 06-06-2023 ED PROV NOTE Normal [facility] FLUABV+SARS-CoV-2+RSV Pnl Re sp HANK+probeon 06-06-2023 FLUABV+SARS-CoV-2+R SV Pnl Resp HANK+probe Normal [facility] Comment on above: Performed By: #### 9 5941-1 ####[facility]ATORYCLIA [id number] [place] [address] [place] HISTORY PHYSICALon HISTORY PHYSICAL Normal [facility] Lipase SerPl-cCncon 06-06-19 24 Lipase [Catalytic activity/Vol] 75 U/L High 16-61 [facility] Comment on above: Order Comment: Speci men Type: BLOOD SPECIMENOrdering Facility: [facility] Address: [address] [place] [address] Performed By: #### 2 4323-8, 3040-3, 87418-1 ####[facility]ORYIA [id number] [place] [address] [place] Magnesium SerPl-mCncon 06-05 Magnesium [Mass/Vol] 2.1 mg/dL Normal 1.7-2.3 [facility] Comment on above: Order Comment: Speci men Type: BLOOD SPECIMENOrdering Facility: [facility] Address: [address] [place] [address] Performed By: #### 2 4323-8, 0-3, ####[facility]IA [id number] [place] [address] [place] Urinalysis complete panel (U )on 06-06-2023 Bilirubin Ql (U) Negative Normal Negative [facility] Comment on above: Order Comment: Speci men Type: URINE SPECIMENOrdering Facility: [facility] Address: [address] [place] [address] Performed By: #### 2 4356-8 ####[facility] [id number] [place] [address] [place] Clarity (Unsp spec) Clear Normal Clear [facility] Comment on above: Order Comment: Speci men Type: URINE SPECIMENOrdering Facility: [facility] Address: [address] [place] [address] Performed By: #### 2 4356-8 ####[facility] [id number] [place] [address] [place] [facility] Color (U) Light Yellow Normal yellow [facility] Comment on above: Order Comment: Speci men Type: URINE SPECIMENOrdering Facility: [facility] Address: [address] [place] [address] Performed By: #### 2 4356-8 ####[facility] [id number] [place] [address] [place] Epithelial cells LM.HPF (Urine sed) [#/Area] Few Normal [facility] Comment on above: Order Comment: Speci men Type: URINE SPECIMENOrdering Facility: [facility] Address: [address] [place] [address] Performed By: #### 2 4356-8 ####[facility] [id number] [place] [address] [place] Glucose Test strip (U) [Mass/Vol] Negative Normal Trace, Negative [facility] Comment on above: Order Comment: Speci men Type: URINE SPECIMENOrdering Facility: [facility] Address: [address] [place] [address] Performed By: #### 2 4356-8 ####[facility] [id number] [place] [address] [place] Hemoglobin Ql (U) Negative Normal Negative, Trace [facility] Comment on above: Order Comment: Speci men Type: URINE SPECIMENOrdering Facility: [facility] Address: [address] [place] [address] Performed By: #### 2 4356-8 ####[facility] [id number] [place] [address] [place] Ketones Ql (U) Negative Normal Negative, Trace [facility] Comment on above: Order Comment: Speci men Type: URINE SPECIMENOrdering Facility: [facility] Address: [address] [place] [address] Performed By: #### 2 4356-8 ####[facility] [id number] [place] [id number] [place] Leukocyte esterase Test strip Ql (U) Negative Normal Negative, 25 Patito/uL [facility] Comment on above: Order Comment: Speci men Type: URINE SPECIMENOrdering Facility: [facility] Address: [address] [place] [address] Performed By: #### 2 4356-8 ####[facility] [id number] [place] [address] [place] Nitrite Ql (U) Negative Normal Negative [facility] Comment on above: Order Comment: Speci men Type: URINE SPECIMENOrdering Facility: [facility] Address: [address] [place] [address] Performed By: #### 2 4356-8 ####[facility] [id number] [place] [id number] [place] pH (U) 7.0 [pH] Normal 5.0-8.0 [facility] Comment on above: Order Comment: Speci men Type: URINE SPECIMENOrdering Facility: [facility] Address: [address] [place] [address] Performed By: #### 2 4356-8 ####[facility] [id number] [place] [id number] [place] Protein (U) [Mass/Vol] Trace Normal Trace, Negative [facility] Comment on above: Order Comment: Speci men Type: URINE SPECIMENOrdering Facility: [facility] Address: [address] [place] [address] Performed By: #### 2 4356-8 ####[facility] [id number] [place] [id number] [place] RBC LM.HPF (Urine sed) [#/Area] 3-5 /HPF Abnormal 0-3 /HPF [facility] Comment on above: Order Comment: Speci men Type: URINE SPECIMENOrdering Facility: [facility] Address: [address] [place] [address] Performed By: #### 2 4356-8 ####[facility] [id number] [place] [address] [place] Specific gravity (U) [Rel density] 1.024 Normal 1.005-1.030 [facility] Comment on above: Order Comment: Speci men Type: URINE SPECIMENOrdering Facility: [facility] Address: [address] [place] [address] Performed By: #### 2 4356-8 ####[facility] [id number] [place] [address] [facility] Urobilinogen Ql (U) Normal Normal Normal [facility] Comment on above: Order Comment: Speci men Type: URINE SPECIMENOrdering Facility: [facility] Address: [address] [place] [address] Performed By: #### 2 4356-8 ####[facility] [id number] [place] [address] [place] WBC LM.HPF (Urine sed) [#/Area] 0-5 /HPF Normal 0-5 /HPF [facility] Comment on above: Order Comment: Speci men Type: URINE SPECIMENOrdering Facility: [facility] Address: [address] [place] [address] Performed By: #### 2 4356-8 ####[facility] [id number] [place] [address] [place] ED Note-Physicianon 06-04-19 ED Note-Physician [id number] 4B#[id number] Normal [facility] Ambulatory Visit Summaryon 0 06-02-2023 Ambulatory Visit Summary Normal [address] [place] [address] [place] [address]- \.br\ Medications\.br\ What How Much When Why [...] us for your care.\.br\ \.br\ [facility] Family Medicine Office/Clini c Noteon 06-02-2023 Family Medicine Office/Clinic Note Normal [facility] Comment on above: Result Comment: Elec tronically Signed By: Jaquan Paula\.br\Date and Time Signed: 06/02/23 12:30 EDT Provider Letteron 06-02-2023 Provider Letter Normal [facility] Provider Letter Normal [facility] Population Healthon 05-31-19 Population Health Normal [facility] Alanine aminotransferase [En zymatic activity/volume] in Serum or PlasmaOrdered By: Gabino Parker on 05-30-2023 ALT [Catalytic activity/Vol] 11 U/L Normal 7-52 [facility] Comment on above: Performed By: #### H EPATIC, MG, LIPASE, CMP, CBC #### [facility] [address] Albumin [Mass/volume] in Ser um or Plasma by Bromocresol green (BCG) dye binding methoOrdered By: Gabino Parker on 05-30-2023 Albumin BCG dye [Mass/Vol] 4.1 g/dL 3.5-5.7 [facility] Alkaline phosphatase [Enzyma tic activity/volume] in Serum or PlasmaOrdered By: Gabino Parker on 05-30-2023 ALP [Catalytic activity/Vol] 56 U/L Normal 34-104 [facility] Comment on above: Performed By: #### H EPATIC, MG, LIPASE, CMP, CBC #### [facility] [address] [place] [address] Aspartate aminotransferase [ Enzymatic activity/volume] in Serum or PlasmaOrdered By: Gabino Parker on 05-30-2023 AST [Catalytic activity/Vol] 22 U/L Normal 13-39 [facility] Comment on above: Performed By: #### H EPATIC, MG, LIPASE, CMP, CBC #### [address] Automated basophil %Ordered By: Gabino Parker on 05-30-2023 Basophils/100 WBC (Bld) 0.4 % Normal . [facility] Comment on above: Performed By: #### H EPATIC, MG, LIPASE, CMP, CBC #### [address] Automated basophil countOrde red By: Gabino Parker on 05-30-2023 Basophils (Bld) [#/Vol] 0.0 10*3/uL Normal 0.0-0.2 [facility] Comment on above: Result Comment: PERF ORMED BY: [place] [address] PATHOLOGIST MULTINEEDLE SHIRRER BAUTISTA BAKER M.D. Performed By: #### H EPATIC, MG, LIPASE, CMP, CBC #### [address] Automated blood monocyte cou ntOrdered By: Gabino Parker on 05-30-2023 Monocytes (Bld) [#/Vol] 0.4 10*3/uL Normal 0.0-0.8 [facility] Comment on above: Performed By: #### H EPATIC, MG, LIPASE, CMP, CBC #### [address] Automated eosinophil %Ordere d By: Gabino Parker on 05-30-2023 Eosinophils/100 WBC (Bld) 0.4 % Normal . [facility] Comment on above: Performed By: #### H EPATIC, MG, LIPASE, CMP, CBC #### [address] Automated eosinophil countOr dered By: Gabino Parker on 05-30-2023 Eosinophils (Bld) [#/Vol] 0.0 10*3/uL Normal 0.0-0.45 [facility] Comment on above: Performed By: #### H EPATIC, MG, LIPASE, CMP, CBC #### [facility] [address] Automated erythrocytes count in urine sediment (number/area)Ordered By: Gabino Parker on 05-30-2023 RBC Auto (Urine sed) [#/Area] 3-4 [HPF] 0-4 [facility] Automated leukocytes count i n urine sediment (number/area)Ordered By: Gabino Parker on 05-30-2023 WBC Auto (Urine sed) [#/Area] 5-9 [HPF] High 0-4 [facility] Automated monocyte %Ordered By: Gabino Parker on 05-30-2023 Monocytes/100 WBC (Bld) 4.5 % Normal . [facility] Comment on above: Performed By: #### H EPATIC, MG, LIPASE, CMP, CBC #### [facility] [address] [place] [address] Automated neutrophil %Ordere d By: Gabino Parker on 05-30-2023 Neutrophils/100 WBC (Bld) 79.0 % Normal . [facility] Comment on above: Performed By: #### H EPATIC, MG, LIPASE, CMP, CBC #### [facility] [address] [place] [address] Automated urine color determ inationOrdered By: Gabino Parker on 05-30-2023 Color (U) Yellow Normal Yellow [facility] Comment on above: Order Comment: Name Collection Type:: Clean-Voided Midstream Performed By: #### A DDONUAPLUS, UHCG, CUU #### [facility] [address] [place] [address] Bilirubin Test strip Ql (U)O rdered By: Gabino Parker on 05-30-2023 Bilirubin Ql (U) Negative Negative [facility] Bilirubin.direct [Mass/volum e] in Serum or PlasmaOrdered By: Gabino Parker on 05-30-2023 Bilirubin.direct [Mass/Vol] 0.10 mg/dL 0.03-0.18 [facility] Bilirubin.total [Mass/volume ] in Serum or PlasmaOrdered By: Gabino Parker on 05-30-2023 Bilirubin [Mass/Vol] 0.4 mg/dL Normal 0.3-1.0 [facility] Comment on above: Performed By: #### H EPATIC, MG, LIPASE, CMP, CBC #### [facility] [place] [facility] [address] CNPNon 05-30-2023 CNPN Normal [facility] CT abdomen pelvis w conon CT abdomen pelvis w con [facility] [place] [address] [place] [address] CT Scan Report Signed Patient: Abbey Garcia MR#: [id number] : 1990 Acct:[id number] Age/Sex: 33 / F ADM Date: 05/30/23 Loc: ER Room: Type: [facility] ER Attending Dr: Copies to: Gabino [...] Melisa Hutchinson M.D.05/30/2023 5:49 PM Dictation Location: [place] [address] Transcribed By: [facility] 05/30/231748 Dictated By: Melisa Hutchinson II, MD 05/30/231739 Signed By: 05/30/231748 Normal [facility] Calcium [Mass/volume] in Ser um or PlasmaOrdered By: Gabino Parker on 05-30-2023 Calcium [Mass/Vol] 9.3 mg/dL Normal 8.6-10.3 [facility] Comment on above: Performed By: #### H EPATIC, MG, LIPASE, CMP, CBC #### [facility] [address] Carbon dioxide, total [Moles /volume] in Serum or PlasmaOrdered By: Gabino Parker on 05-30-2023 CO2 [Moles/Vol] 27.7 mmol/L Normal 21.0-31.0 [facility] Comment on above: Performed By: #### H EPATIC, MG, LIPASE, CMP, CBC #### [facility] [address] [place] [address] [place] Chloride [Moles/volume] in S elder or PlasmaOrdered By: Gabino Parker on 05-30-2023 Chloride [Moles/Vol] 103 mmol/L Normal 98-107 [facility] Comment on above: Performed By: #### H EPATIC, MG, LIPASE, CMP, CBC #### [address] Complete Blood Count Auto Di ffon 05-30-2023 Mean Corpuscular HGB Conc 33.8 g/dL Normal 32.0-35.0 [facility] Comment on above: Performed By: #### H EPATIC, MG, LIPASE, CMP, CBC #### [address] Monocytes/100 WBC (Bld) 16.47 % Normal 0.00-20.00 [facility] Comment on above: Performed By: #### H EPATIC, MG, LIPASE, CMP, CBC #### [address] NRBC% 0.1 /100{WBC} Normal 0-0.5 [facility] Comment on above: Performed By: #### H EPATIC, MG, LIPASE, CMP, CBC #### [address] Comprehensive Metabolic Pane nestor 05-30-2023 Albumin [Mass/Vol] 4.1 g/dL Normal 3.5-5.7 [facility] Comment on above: Performed By: #### H EPATIC, MG, LIPASE, CMP, CBC #### [address] Creatinine Clr Calc Pharmacy 118.42 Normal [facility] Comment on above: Performed By: #### H EPATIC, MG, LIPASE, CMP, CBC #### [address] GFR/1.73 sq M.predicted MDRD (S/P/Bld) [Vol rate/Area] mL/min/{1.73_m2} Normal [facility] Comment on above: Performed By: #### H EPATIC, MG, LIPASE, CMP, CBC #### [address] Creatinine [Mass/volume] in Serum or PlasmaOrdered By: Gabino Parker on 05-30-2023 Creatinine [Mass/Vol] 0.70 mg/dL Normal 0.60-1.20 [facility] Comment on above: Performed By: #### H EPATIC, MG, LIPASE, CMP, CBC #### [facility] [address] [place] [address] [place] Dipstick and Microscopicon 0 05-30-2023 Appearance (U) Clear Normal Clear [facility] Comment on above: Order Comment: Name Collection Type:: Clean-Voided Midstream Performed By: #### A DDONUAPLUS, UHCG, CUU #### [address] Bacteria,Urine None Seen Normal None Seen [facility] Comment on above: Order Comment: Name Collection Type:: Clean-Voided Midstream Performed By: #### A DDONUAPLUS, UHCG, CUU #### [address] Bilirubin,Urine Negative Normal Negative [facility] [place] [facility] Comment on above: Order Comment: Name Collection Type:: Clean-Voided Midstream Performed By: #### A DDONUAPLUS, UHCG, CUU #### [address] Glucose Ql (U) Normal Normal Normal [facility] Comment on above: Order Comment: Name Collection Type:: Clean-Voided Midstream Performed By: #### A DDONUAPLUS, UHCG, CUU #### [place] [address] [place] Hyaline Casts,Urine 0-8 Normal 0-8 [facility] Comment on above: Order Comment: Name Collection Type:: Clean-Voided Midstream Performed By: #### A DDONUAPLUS, UHCG, CUU #### [address] Ketones Ql (U) Negative Normal Negative [facility] Comment on above: Order Comment: Name Collection Type:: Clean-Voided Midstream Performed By: #### A DDONUAPLUS, UHCG, CUU #### [address] Leukocyte esterase Test strip Ql (U) 1+ High Negative [facility] Comment on above: Order Comment: Name Collection Type:: Clean-Voided Midstream Performed By: #### A DDONUAPLUS, UHCG, CUU #### [address] Nitrite,Urine Negative Normal Negative [facility] Comment on above: Order Comment: Name Collection Type:: Clean-Voided Midstream Performed By: #### A DDONUAPLUS, UHCG, CUU #### [address] Occult Blood,Urine Negative Normal Negative [facility] Comment on above: Order Comment: Name Collection Type:: Clean-Voided Midstream Performed By: #### A DDONUAPLUS, UHCG, CUU #### [address] Protein,Urine Negative Normal Negative [facility] Comment on above: Order Comment: Name Collection Type:: Clean-Voided Midstream Performed By: #### A DDONUAPLUS, UHCG, CUU #### [address] RBC,Urine 3-4 Normal 0-4 [facility] Comment on above: Order Comment: Name Collection Type:: Clean-Voided Midstream Performed By: #### A DDONUAPLUS, UHCG, CUU #### [address] Specificy Arjay,Urine 1.011 Normal 1.001-1.030 [facility] Comment on above: Order Comment: Name Collection Type:: Clean-Voided Midstream Performed By: #### A DDONUAPLUS, UHCG, CUU #### [address] Squamous Epithelial Cell,Urine 0-1 Normal 0-2 [facility] Comment on above: Order Comment: Name Collection Type:: Clean-Voided Midstream Performed By: #### A DDONUAPLUS, UHCG, CUU #### [address] Urobilinogen,Urine Normal Normal Normal [facility] Comment on above: Order Comment: Name Collection Type:: Clean-Voided Midstream Performed By: #### A DDONUAPLUS, UHCG, CUU #### [facility] [place] [facility] [address] WBC,Urine 5-9 High 0-4 [facility] Comment on above: Order Comment: Name Collection Type:: Clean-Voided Midstream Performed By: #### A DDONUAPLUS, UHCG, CUU #### [address] Erythrocyte distribution wid th [Ratio] by Automated countOrdered By: Gabino Parker on 05-30-2023 Erythrocyte distribution width (RBC) [Ratio] 15.5 % High 11.9-15.3 [facility] Comment on above: Performed By: #### H EPATIC, MG, LIPASE, CMP, CBC #### [address] Erythrocytes [#/volume] in B lood by Automated countOrdered By: Gabino Parker on 05-30-2023 RBC (Bld) [#/Vol] 3.86 10*6/uL Normal 3.60-5.00 [facility] Comment on above: Performed By: #### H EPATIC, MG, LIPASE, CMP, CBC #### [address] Glucose [Mass/volume] in Ser um or PlasmaOrdered By: Gabino Parker on 05-30-2023 Glucose [Mass/Vol] 81 mg/dL Normal 70-100 [facility] Comment on above: ADA recommended refe rence rangeRandom Glucose Reference Range is dependent on time and content of last meal. Glucose of more than 200 mg/dL in a nonstressed, ambulatory subject supports the diagnosis of Diabetes Mellitus. Result Comment: [place] Glucose Reference Range is dependent on time and content of last meal. Glucose of more than 200 mg/dL in a nonstressed, ambulatory subject supports the diagnosis of Diabetes Mellitus. ADA recommended reference range Performed By: #### H EPATIC, MG, LIPASE, CMP, CBC #### [address] HCG ( test) IA.hananei d Ql (U)Ordered By: Gabino Parker on 05-30-2023 HCG ( test) Ql (U) Negative [facility] HCG,Urineon 05-30-2023 Beta HCG ( test) Ql (U) Negative Normal [facility] Comment on above: Order Comment: Name Collection Type:: Clean-Voided Midstream Result Comment: PERF ORMED BY: [place] [address] PATHOLOGIST MULTINEEDLE SHIRRER BAUTISTA BAKER M.D. Performed By: #### A DDFLORECITA, [facility], CUU #### [address] Hematocrit [Volume Fraction] of Blood by Automated countOrdered By: Gabino Parker on 05-30-2023 Hematocrit (Bld) [Volume fraction] 34.9 % Normal 34.0-46.4 [facility] Comment on above: Performed By: #### H EPATIC, MG, LIPASE, CMP, CBC #### [address] Hemoglobin [Mass/volume] in BloodOrdered By: Gabino Parker on 05-30-2023 Hemoglobin (Bld) [Mass/Vol] 11.8 g/dL Normal 11.8-15.4 [facility] Comment on above: Performed By: #### H EPATIC, MG, LIPASE, CMP, CBC #### [address] Hepatic Panelon 05-30-2023 Bilirubin,Indirect 0.3 mg/dL Normal [facility] Comment on above: Performed By: #### H EPATIC, MG, LIPASE, CMP, CBC #### [address] Bilirubin.indirect [Mass/Vol] 0.10 mg/dL Normal 0.03-0.18 [facility] Comment on above: Performed By: #### H EPATIC, MG, LIPASE, CMP, CBC #### [facility] [address] [place] [address] Ketones Auto test strip (U) [Mass/Vol]Ordered By: Gabino Parker on 05-30-2023 Ketones (U) [Mass/Vol] Negative Negative [facility] - UrinalysisOrder ed By: Gabino Parker on 05-30-2023 Hyaline casts LM Ql (Urine sed) 0-8 [LPF] 0-8 [facility] Leukocytes [#/volume] correc darvin for nucleated erythrocytes in Blood by Automated counOrdered By: Gabino Parker on 05-30-2023 WBC corrected for nucl RBC Auto (Bld) [#/Vol] 8.8 10*3/uL 3.8-11.6 [facility] Leukocytes [#/volume] in Blo od by Automated countOrdered By: Gabino Parker on 05-30-2023 WBC (Bld) [#/Vol] 8.8 10*3/uL Normal 3.8-11.6 [facility] Comment on above: Performed By: #### H EPATIC, MG, LIPASE, CMP, CBC #### [address] Lipase [Enzymatic activity/v olume] in Serum or PlasmaOrdered By: Gabino Parker on 05-30-2023 Lipase [Catalytic activity/Vol] 37.0 U/L Normal 11.0-82.0 [facility] Comment on above: Result Comment: PERF ORMED BY: [place] [address] PATHOLOGIST MULTINEEDLE SHIRRER BAUTISTA BAKER M.D. Performed By: #### H EPATIC, MG, LIPASE, CMP, CBC #### [address] Lymphocytes [#/volume] in Bl ood by Automated countOrdered By: Gabino Parker on 05-30-2023 Lymphocytes (Bld) [#/Vol] 1.4 10*3/uL Normal 1.00-4.8 [facility] Comment on above: Performed By: #### H EPATIC, MG, LIPASE, CMP, CBC #### [facility] [address] [place] [address] Lymphocytes/100 leukocytes i n Blood by Automated countOrdered By: Gabino Parker on 05-30-2023 Lymphocytes/100 WBC (Bld) 15.7 % Normal . [facility] Comment on above: Performed By: #### H EPATIC, MG, LIPASE, CMP, CBC #### [address] MCH [Entitic mass] by Automa darvin countOrdered By: Gabino Parker on 05-30-2023 MCH (RBC) [Entitic mass] 30.5 pg Normal 24.7-34.3 [facility] Comment on above: Performed By: #### H EPATIC, MG, LIPASE, CMP, CBC #### [address] MCHC Auto (RBC) [Mass/Vol]Or dered By: Gabino Parker on 05-30-2023 MCHC (RBC) [Mass/Vol] 33.8 g/dL 32.0-35.0 [facility] MCV [Entitic volume] by Auto mated countOrdered By: Gabino Parker on 05-30-2023 MCV (RBC) [Entitic vol] 90.3 fL Normal 80-100 [facility] Comment on above: Performed By: #### H EPATIC, MG, LIPASE, CMP, CBC #### [address] Magnesium [Mass/volume] in S elder or PlasmaOrdered By: Gabino Parker on 05-30-2023 Magnesium [Mass/Vol] 2.1 mg/dL Normal 1.9-2.7 [facility] Comment on above: Performed By: #### H EPATIC, MG, LIPASE, CMP, CBC #### [address] Monocyte distribution width [Entitic volume] in Blood by AutomatedOrdered By: Gabino Parker on 05-30-2023 Monocyte distribution width Auto (Bld) [Entitic vol] 16.47 % 0.00-20.00 [facility] Neutrophils [#/volume] in Bl ood by Automated countOrdered By: Gabino Parker on 05-30-2023 Neutrophils (Bld) [#/Vol] 6.9 10*3/uL Normal 1.8-7.7 [facility] Comment on above: Performed By: #### H EPATIC, MG, LIPASE, CMP, CBC #### [facility] [address] [place] [address] Nitrite Test strip Ql (U)Ord ered By: Gabino Parker on 05-30-2023 Nitrite Ql (U) Negative Negative [facility] No Panel InformationOrdered By: Gabino Parker on 05-30-2023 Estimated GFR (CKD-EPI) > 60.0 mL/Min [facility] Creatinine Clearance (Chem 118.42 [facility] Nucleated erythrocytes [Pres ence] in Blood by Automated countOrdered By: Gabino Parker on 05-30-2023 Nucleated RBC Auto Ql (Bld) 0.1 /100{WBC} 0-0.5 [facility] Platelet mean volume [Entiti c volume] in Blood by Automated countOrdered By: Gabino Parker on 05-30-2023 Platelet mean volume (Bld) [Entitic vol] 9.5 fL Normal 6.3-10.7 [facility] Comment on above: Performed By: #### H EPATIC, MG, LIPASE, CMP, CBC #### [facility] [address] [place] [address] [place] Platelets [#/volume] in Bloo d by Automated countOrdered By: Gabino Parker on 05-30-2023 Platelets (Bld) [#/Vol] 270 10*3/uL Normal 150-450 [facility] Comment on above: Performed By: #### H EPATIC, MG, LIPASE, CMP, CBC #### [facility] [address] [place] [address] Potassium [Moles/volume] in Serum or PlasmaOrdered By: Gabino Parker on 05-30-2023 Potassium [Moles/Vol] 4.0 mmol/L Normal 3.5-5.1 [facility] Comment on above: Performed By: #### H EPATIC, MG, LIPASE, CMP, CBC #### [address] Protein Auto test strip (U) [Mass/Vol]Ordered By: Gabino Parker on 05-30-2023 Protein (U) [Mass/Vol] Negative Negative [facility] Protein [Mass/volume] in Ser um or PlasmaOrdered By: Gabino Parker on 05-30-2023 Protein [Mass/Vol] 7.2 g/dL Normal 6.4-8.9 [facility] Comment on above: Performed By: #### H EPATIC, MG, LIPASE, CMP, CBC #### [address] Serum globulin measurement b y calculation (mass/volume)Ordered By: Gabino Parker on 05-30-2023 Globulin (S) [Mass/Vol] 3.1 g/dL Normal [facility] Comment on above: Performed By: #### H EPATIC, MG, LIPASE, CMP, CBC #### [address] Serum or plasma albumin/glob ulin mass ratioOrdered By: Gabino Parker on 05-30-2023 Albumin/Globulin [Mass ratio] 1.3 {ratio} [facility] Comment on above: Performed By: #### H EPATIC, MG, LIPASE, CMP, CBC #### [address] Serum or plasma anion gap de terminationOrdered By: Gabino Parker on 05-30-2023 Anion gap [Moles/Vol] 12.3 mmol/L Normal 6.0-15.0 [facility] Comment on above: Performed By: #### H EPATIC, MG, LIPASE, CMP, CBC #### [address] Serum or plasma non-glucuron idated bilirubin measurement (mass/volume)Ordered By: Gabino Parker on 05-30-2023 Bilirubin.indirect [Mass/Vol] 0.3 mg/dL [facility] Sodium [Moles/volume] in Ser um or PlasmaOrdered By: Gabino Parker on 05-30-2023 Sodium [Moles/Vol] 139 mmol/L Normal 136-145 [facility] Comment on above: Performed By: #### H EPATIC, MG, LIPASE, CMP, CBC #### [facility] [address] Specific gravity Auto test s trip (U) [Rel density]Ordered By: Gabino Parker on 05-30-2023 Specific gravity (U) [Rel density] 1.011 1.001-1.030 [facility] Squamous epithelial cells de tection in urine sediment by light microscopyOrdered By: Gabino Parker on 05-30-2023 Epithelial cells.squamous LM Ql (Urine sed) 0-1 [HPF] 0-2 [facility] Urea nitrogen [Mass/volume] in Serum or PlasmaOrdered By: Gabino Parker on 05-30-2023 Urea nitrogen [Mass/Vol] 6 mg/dL Low 7-25 [facility] Comment on above: Performed By: #### H EPATIC, MG, LIPASE, CMP, CBC #### [facility] [address] Urine Cultureon 05-30-2023 Bacteria identified Cx Nom (U) 75,000 colonies/ml mixed bacterial skin contaminants 2 Days PERFORMED BY: [place] [address] PATHOLOGIST MULTINEEDLE SHIRRER BAUTISTA BAKER M.D. Normal [facility] Comment on above: Performed By: #### A DDONUAPLUS, UHCG, CUU #### [facility] [address] Urine bacteria detection by automated methodOrdered By: Gabino Parker on 05-30-2023 Bacteria Auto Ql (U) None seen None Seen [facility] Urine clarity by refractomet ry automatedOrdered By: Gabino Parker on 05-30-2023 Clarity Refractometry automated (U) Clear Clear [facility] Urine culture routineOrdered By: Gabino Parker on 05-30-2023 Bacteria identified Cx Nom (U) 2 Days [facility] Urine glucose measurement by automated test strip (mass/volume)Ordered By: Gabino Parker on 05-30-2023 Glucose Auto test strip (U) [Mass/Vol] Normal mg/dL Normal [facility] Urine hemoglobin detection b y automated test stripOrdered By: Gabino Parker on 05-30-2023 Hemoglobin Auto test strip Ql (U) Negative Negative [facility] Urine leukocyte esterase det ection by automated test stripOrdered By: Gabino Parker on 05-30-2023 Leukocyte esterase Auto test strip Ql (U) 1+ High Negative [facility] Urine pH measurement by auto mated test stripOrdered By: Gabino Parker on 05-30-2023 pH (U) [pH] Normal 5.0-9.0 [facility] Comment on above: Order Comment: Name Collection Type:: Clean-Voided Midstream Performed By: #### A DDONUAPLUS, UHCG, CUU #### [facility] [address] Urobilinogen Auto test strip (U) [Mass/Vol]Ordered By: Gabino Parker on 05-30-2023 Urobilinogen (U) [Mass/Vol] Normal mg/dL Normal [facility] Basic metabolic 2000 panelon 05-28-2023 Anion gap [Moles/Vol] 10 mmol/L Normal 9-18 [facility] Comment on above: Order Comment: Speci men Type: BLOOD SPECIMENOrdering Facility: [facility] Address: [address] [place] [address] Performed By: #### 1 9123-9, 2777-1, 61368-1 ####[facility] LABORATORYCLIA [id number] [place] [address] [place] Calcium [Mass/Vol] 8.5 mg/dL Normal 8.5-10.2 [facility] Comment on above: Order Comment: Speci men Type: BLOOD SPECIMENOrdering Facility: [facility] Address: [address] [place] [address] Performed By: #### 1 9123-9, 2777-1, 03527-7 ####[facility] LABORATORYCLIA [id number] [place] [id number] [place] Chloride [Moles/Vol] 105 mmol/L Normal 97-105 [facility] Comment on above: Order Comment: Speci men Type: BLOOD SPECIMENOrdering Facility: [facility] Address: [address] [place] [address] Performed By: #### 1 9123-9, 2777-1, 29275-5 ####[facility] LABORATORYCLIA [id number] [place] [id number] [place] CO2 [Moles/Vol] 24 mmol/L Normal 22-30 [facility] Comment on above: Order Comment: Speci men Type: BLOOD SPECIMENOrdering Facility: [facility] Address: [address] [place] [address] Performed By: #### 1 9123-9, 2777-1, 91044-2 ####[facility] LABORATORYCLIA [id number] [place] [id number] [place] Creatinine [Mass/Vol] 0.52 mg/dL Low 0.58-0.96 [facility] Comment on above: Order Comment: Speci men Type: BLOOD SPECIMENOrdering Facility: [facility] Address: [address] [place] [address] Performed By: #### 1 9123-9, 2777-1, 58610-8 ####[facility] LABORATORYCLIA [id number] [place] [id number] [facility] Creatinine and Glomerular filtration rate.predicted panel (S/P/Bld) 125 mL/min/1.73m??? Normal >=60 [facility] Comment on above: Order Comment: Speci men Type: BLOOD SPECIMENOrdering Facility: [facility] Address: [address] [place] [address] Result Comment: Jessica mated Glomerular Filtration Rate [...] GFR. Performed By: #### 1 9123-9, 2777-1, 18242-5 ####[facility] LABORATORYCLIA [id number] [place] [id number] [place] Glucose [Mass/Vol] 77 mg/dL Normal 74-99 [facility] Comment on above: Order Comment: Speci men Type: BLOOD SPECIMENOrdering Facility: [facility] Address: [address] [place] [address] Result Comment: The [place] Diabetes Association (ADA) provides guidance for cutoff [...] Standards of Medical Care in Diabetes 2016, [place] [employer]. Diabetes Care. 2016.39(Suppl 1). Performed By: #### 1 9123-9, 2777-, 94984-0 ####[facility] LABORATORYCLIA [id number] [place] [id number] [place] Potassium [Moles/Vol] 4.2 mmol/L Normal 3.7-5.1 [facility] Comment on above: Order Comment: Lyssai men Type: BLOOD SPECIMENOrdering Facility: [facility] Address: [address] [place] [address] Performed By: #### 1 9123-9, 2777-, 30059-1 ####[facility] LABORATORYCLIA [id number] [place] [id number] [place] Sodium [Moles/Vol] 139 mmol/L Normal 136-144 [facility] Comment on above: Order Comment: Speci men Type: BLOOD SPECIMENOrdering Facility: [facility] Address: [address] [place] [address] Performed By: #### 1 9123-9, 2777-1, 92680-7 ####[facility] LABORATORYCLIA [id number] [place] [id number] [place] Urea nitrogen [Mass/Vol] 8 mg/dL Normal 7-21 [facility] Comment on above: Order Comment: Speci men Type: BLOOD SPECIMENOrdering Facility: [facility] Address: [address] [place] [address] Performed By: #### 1 9123-9, 2777-, 45747-0 ####[facility] LABORATORYCLIA [id number] [place] [id number] [place] CBC panel Auto (Bld)on 05-27 Erythrocyte distribution width (RBC) [Ratio] 13.7 % Normal 11.5-15.0 [facility] Comment on above: Order Comment: Speci men Type: BLOOD SPECIMENOrdering Facility: [facility] Address: [address] [place] [address] Performed By: #### 5 8410-2 ####[facility] LABORATORYCLIA [id number] [address] [place] Hematocrit (Bld) [Volume fraction] 31.5 % Low 36.0-46.0 [facility] Comment on above: Order Comment: Speci men Type: BLOOD SPECIMENOrdering Facility: [facility] Address: [address] [place] [address] Performed By: #### 5 8410-2 ####OS[facility] LABORATORYCLIA [id number] [place] [id number] [place] Hemoglobin (Bld) [Mass/Vol] 11.1 g/dL Low 11.5-15.5 [facility] Comment on above: Order Comment: Speci men Type: BLOOD SPECIMENOrdering Facility: [facility] Address: [address] [place] [address] Performed By: #### 5 8410-2 ####[facility] LABORATORYCLIA [id number] [place] [id number] [place] MCH (RBC) [Entitic mass] 31.4 pg Normal 26.0-34.0 [facility] Comment on above: Order Comment: Speci men Type: BLOOD SPECIMENOrdering Facility: [facility] Address: [address] [place] [address] Performed By: #### 5 8410-2 ####[facility] LABORATORYCLIA [id number] [address] [place] MCHC (RBC) [Mass/Vol] 35.2 g/dL Normal 30.5-36.0 [facility] Comment on above: Order Comment: Speci men Type: BLOOD SPECIMENOrdering Facility: [facility] Address: [address] [place] [address] Performed By: #### 5 8410-2 ####[facility] LABORATORYCLIA [id number] [address] [place] MCV (RBC) [Entitic vol] 89.2 fL Normal 80.0-100.0 [facility] Comment on above: Order Comment: Speci men Type: BLOOD SPECIMENOrdering Facility: [facility] Address: [address] [place] [address] Performed By: #### 5 8410-2 ####[facility] LABORATORYCLIA [id number] [place] [address] [place] Nucleated RBC (Bld) [#/Vol] 10*3/uL Normal <0.01 [facility] Comment on above: Order Comment: Speci men Type: BLOOD SPECIMENOrdering Facility: [facility] Address: [address] [place] [address] Performed By: #### 5 8410-2 ####[facility] LABORATORYCLIA [id number] [address] [place] Platelet mean volume (Bld) [Entitic vol] 11.8 fL Normal 9.0-12.7 [facility] Comment on above: Order Comment: Speci men Type: BLOOD SPECIMENOrdering Facility: [facility] Address: [address] [place] [address] Performed By: #### 5 8410-2 ####[facility] LABORATORYCLIA [id number] [place] [id number] [place] Platelets (Bld) [#/Vol] 199 10*3/uL Normal 150-400 [facility] Comment on above: Order Comment: Speci men Type: BLOOD SPECIMENOrdering Facility: [facility] Address: [address] [place] [address] Performed By: #### 5 8410-2 ####[facility] LABORATORYCLIA [id number] [place] [id number] [place] RBC (Bld) [#/Vol] 3.53 10*6/uL Low 3.90-5.20 [facility] Comment on above: Order Comment: Speci men Type: BLOOD SPECIMENOrdering Facility: [facility] Address: [address] [place] [address] Performed By: #### 5 8410-2 ####[facility] LABORATORYCLIA [id number] [place] [address] [place] WBC (Bld) [#/Vol] 6.24 10*3/uL Normal 3.70-11.00 [facility] Comment on above: Order Comment: Speci men Type: BLOOD SPECIMENOrdering Facility: [facility] Address: [address] [place] [address] Performed By: #### 5 8410-2 ####[facility] LABORATORYCLIA [id number] [place] [id number] [place] CNCOon 05-28-2023 CNCO Letter Text Normal [facility] CNDSon 05-28-2023 CNDS Normal [facility] CNPNon 05-28-2023 CNPN Normal [facility] Magnesium SerPl-mCncon 05-27 Magnesium [Mass/Vol] 1.9 mg/dL Normal 1.7-2.3 [facility] Comment on above: Order Comment: Speci men Type: BLOOD SPECIMENOrdering Facility: [facility] Address: [address] [place] [address] Performed By: #### 1 9123-9, 2777-1, 04478-6 ####[facility] LABORATORYCLIA [id number] [place] [address] [place] NURSING PROGon 05-28-2023 NURSING PROG Normal [facility] Phosphate SerPl-mCncon 05-27 Phosphate [Mass/Vol] 2.3 mg/dL Low 2.7-4.8 [facility] Comment on above: Order Comment: Speci men Type: BLOOD SPECIMENOrdering Facility: [facility] Address: [address] [place] [address] Performed By: #### 1 9123-9, 2777-1, 36153-9 ####[facility] LABORATORYCLIA [id number] [place] [id number] [place] Basic metabolic 2000 panelon 05-27-2023 Anion gap [Moles/Vol] 10 mmol/L Normal 9-18 [facility] Comment on above: Order Comment: Speci men Type: BLOOD SPECIMENOrdering Facility: [facility] Address: [address] [place] [address] Performed By: #### 2 777-1, 64330-2, ####[facility] LABORATORYCLIA [id number] [place] [id number] [place] Calcium [Mass/Vol] 8.9 mg/dL Normal 8.5-10.2 [facility] Comment on above: Order Comment: Speci men Type: BLOOD SPECIMENOrdering Facility: [facility] Address: [address] [place] [address] Performed By: #### 2 777-1, 93346-6, ####[facility] LABORATORYCLIA [id number] [place] [id number] [place] Chloride [Moles/Vol] 104 mmol/L Normal 97-105 [facility] Comment on above: Order Comment: Speci men Type: BLOOD SPECIMENOrdering Facility: [facility] Address: [address] [place] [address] Performed By: #### 2 777-1, 04959-9, ####[facility] LABORATORYCLIA [id number] [place] [id number] [place] CO2 [Moles/Vol] 25 mmol/L Normal 22-30 [facility] Comment on above: Order Comment: Speci men Type: BLOOD SPECIMENOrdering Facility: [facility] Address: [address] [place] [address] Performed By: #### 2 777-1, 73953-7, ####[facility] LABORATORYCLIA [id number] [place] [id number] [place] Creatinine [Mass/Vol] 0.57 mg/dL Low 0.58-0.96 [facility] Comment on above: Order Comment: Speci men Type: BLOOD SPECIMENOrdering Facility: [facility] Address: [address] [place] [address] Performed By: #### 2 777-1, , ####[facility] LABORATORYCLIA [id number] [address] Creatinine and Glomerular filtration rate.predicted panel (S/P/Bld) 122 mL/min/1.73m??? Normal >=60 [facility] Comment on above: Order Comment: Speci men Type: BLOOD SPECIMENOrdering Facility: [facility] Address: [address] [place] [address] Result Comment: Jessica mated Glomerular Filtration Rate [...] actual GFR. Performed By: #### 2 777-1, 76205-8, ####[facility] LABORATORYCLIA [id number] [place] [id number] [place] Glucose [Mass/Vol] 101 mg/dL High 74-99 [facility] Comment on above: Order Comment: Speci men Type: BLOOD SPECIMENOrdering Facility: [facility] Address: [address] [place] [address] Result Comment: The [place] Diabetes Association (ADA) provides guidance for cutoff [...] Standards of Medical Care in Diabetes 2016, [place] [employer]. Diabetes Care. 2016.39(Suppl 1). Performed By: #### 2 777-1, 79359-9, ####[facility] LABORATORYCLIA [id number] [place] [address] [place] Potassium [Moles/Vol] 4.0 mmol/L Normal 3.7-5.1 [facility] Comment on above: Order Comment: Speci men Type: BLOOD SPECIMENOrdering Facility: [facility] Address: [address] [place] [address] Performed By: #### 2 777-1, , ####[facility] LABORATORYCLIA [id number] [place] [id number] [place] Sodium [Moles/Vol] 139 mmol/L Normal 136-144 [facility] Comment on above: Order Comment: Speci men Type: BLOOD SPECIMENOrdering Facility: [facility] Address: [address] [place] [address] Performed By: #### 2 777-1, , ####[facility] LABORATORYCLIA [id number] [place] [id number] [place] Urea nitrogen [Mass/Vol] 6 mg/dL Low 7-21 [facility] Comment on above: Order Comment: Speci men Type: BLOOD SPECIMENOrdering Facility: [facility] Address: [address] [place] [address] Performed By: #### 2 777-1, , ####[facility] LABORATORYCLIA [id number] [place] [id number] [place] CASE MANAGEMon 05-27-2023 CASE MANAGEM Normal [facility] CBC panel Auto (Bld)on 05-26 Erythrocyte distribution width (RBC) [Ratio] 13.5 % Normal 11.5-15.0 [facility] Comment on above: Order Comment: Speci men Type: BLOOD SPECIMENOrdering Facility: [facility] Address: [address] [place] [address] Performed By: #### 5 8410-2 ####[facility] LABORATORYCLIA [id number] [address] Hematocrit (Bld) [Volume fraction] 36.5 % Normal 36.0-46.0 [facility] Comment on above: Order Comment: Speci men Type: BLOOD SPECIMENOrdering Facility: [facility] Address: [address] [place] [address] Performed By: #### 5 8410-2 ####[facility] LABORATORYCLIA [id number] [address] [place] Hemoglobin (Bld) [Mass/Vol] 12.8 g/dL Normal 11.5-15.5 [facility] Comment on above: Order Comment: Speci men Type: BLOOD SPECIMENOrdering Facility: [facility] Address: [address] [place] [address] Performed By: #### 5 8410-2 ####[facility] LABORATORYCLIA [id number] [place] [id number] [place] MCH (RBC) [Entitic mass] 30.9 pg Normal 26.0-34.0 [facility] Comment on above: Order Comment: Speci men Type: BLOOD SPECIMENOrdering Facility: [facility] Address: [address] [place] [address] Performed By: #### 5 8410-2 ####[facility] LABORATORYCLIA [id number] [address] [place] MCHC (RBC) [Mass/Vol] 35.1 g/dL Normal 30.5-36.0 [facility] Comment on above: Order Comment: Speci men Type: BLOOD SPECIMENOrdering Facility: [facility] Address: [address] [place] [address] Performed By: #### 5 8410-2 ####[facility] LABORATORYCLIA [id number] [place] [id number] [place] MCV (RBC) [Entitic vol] 88.2 fL Normal 80.0-100.0 [facility] Comment on above: Order Comment: Speci men Type: BLOOD SPECIMENOrdering Facility: [facility] Address: [address] [place] [address] Performed By: #### 5 8410-2 ####[facility] LABORATORYCLIA [id number] [place] [address] [place] Nucleated RBC (Bld) [#/Vol] 10*3/uL Normal <0.01 [facility] Comment on above: Order Comment: Speci men Type: BLOOD SPECIMENOrdering Facility: [facility] Address: [address] [place] [address] Performed By: #### 5 8410-2 ####[facility] LABORATORYCLIA [id number] [place] [address] [place] Platelet mean volume (Bld) [Entitic vol] 11.5 fL Normal 9.0-12.7 [facility] Comment on above: Order Comment: Speci men Type: BLOOD SPECIMENOrdering Facility: [facility] Address: [address] [place] [address] Performed By: #### 5 8410-2 ####[facility] LABORATORYCLIA [id number] [place] [id number] [place] Platelets (Bld) [#/Vol] 205 10*3/uL Normal 150-400 [facility] Comment on above: Order Comment: Speci men Type: BLOOD SPECIMENOrdering Facility: [facility] Address: [address] [place] [address] Performed By: #### 5 8410-2 ####[facility] LABORATORYCLIA [id number] [place] [address] [place] RBC (Bld) [#/Vol] 4.14 10*6/uL Normal 3.90-5.20 [facility] Comment on above: Order Comment: Speci men Type: BLOOD SPECIMENOrdering Facility: [facility] Address: [address] [place] [address] Performed By: #### 5 8410-2 ####[facility] LABORATORYCLIA [id number] [place] [id number] [facility] WBC (Bld) [#/Vol] 6.24 10*3/uL Normal 3.70-11.00 [facility] Comment on above: Order Comment: Speci men Type: BLOOD SPECIMENOrdering Facility: [facility] Address: [address] [place] [address] Performed By: #### 5 8410-2 ####[facility] LABORATORYCLIA [id number] [address] Magnesium SerPl-mCncon 05-26 Magnesium [Mass/Vol] 1.8 mg/dL Normal 1.7-2.3 [facility] Comment on above: Order Comment: Speci men Type: BLOOD SPECIMENOrdering Facility: [facility] Address: [address] [place] [address] Performed By: #### 2 777-1, 27907-3, ####[facility] LABORATORYCLIA [id number] [place] [id number] [facility] NURSING PROGon 05-27-2023 NURSING PROG Normal [facility] NUTRITIONon 05-27-2023 NUTRITION Normal [facility] Phosphate SerPl-mCncon 05-26 Phosphate [Mass/Vol] 2.4 mg/dL Low 2.7-4.8 [facility] Comment on above: Order Comment: Speci men Type: BLOOD SPECIMENOrdering Facility: [facility] Address: [address] [place] [address] Performed By: #### 2 777-1, 67263-8, ####[facility] LABORATORYCLIA [id number] [place] [address] [place] ALLIED HEALTHon 05-26-2023 ALLIED HEALTH Normal [facility] Basic metabolic 2000 panelon 05-26-2023 Anion gap [Moles/Vol] 13 mmol/L Normal 9-18 [facility] Comment on above: Order Comment: Speci men Type: BLOOD SPECIMENOrdering Facility: [facility] Address: [address] [place] [address] Performed By: #### 2 4321-2, , 2776-02 ####[facility] LABORATORYCLIA [id number] [place] [id number] [place] Calcium [Mass/Vol] 9.0 mg/dL Normal 8.5-10.2 [facility] Comment on above: Order Comment: Speci men Type: BLOOD SPECIMENOrdering Facility: [facility] Address: [address] [place] [address] Performed By: #### 2 4321-2, , 2776-02 ####[facility] LABORATORYCLIA [id number] [place] [id number] [place] Chloride [Moles/Vol] 103 mmol/L Normal 97-105 [facility] Comment on above: Order Comment: Speci men Type: BLOOD SPECIMENOrdering Facility: [facility] Address: [address] [place] [address] Performed By: #### 2 4321-2, , 2776-02 ####[facility] LABORATORYCLIA [id number] [place] [id number] [place] CO2 [Moles/Vol] 20 mmol/L Low 22-30 [facility] Comment on above: Order Comment: Speci men Type: BLOOD SPECIMENOrdering Facility: [facility] Address: [address] [place] [address] Performed By: #### 2 4321-2, , 2776-02 ####[facility] LABORATORYCLIA [id number] [place] [address] [place] Creatinine [Mass/Vol] 0.68 mg/dL Normal 0.58-0.96 [facility] Comment on above: Order Comment: Speci men Type: BLOOD SPECIMENOrdering Facility: [facility] Address: [address] [place] [address] Performed By: #### 2 4321-2, , 2776-02 ####[facility] LABORATORYCLIA [id number] [place] [id number] [place] Creatinine and Glomerular filtration rate.predicted panel (S/P/Bld) 117 mL/min/1.73m??? Normal >=60 [facility] Comment on above: Order Comment: [facility] Type: BLOOD SPECIMENOrdering Facility: [facility] Address: [address] [place] [address] Result Comment: Jessica mated Glomerular Filtration Rate [...] Performed By: #### 2 4321-2, , 2776-02 ####[facility] LABORATORYCLIA [id number] [place] [id number] [place] Glucose [Mass/Vol] 71 mg/dL Low 74-99 [facility] Comment on above: Order Comment: Lyssamichale marrero Type: BLOOD SPECIMENOrdering Facility: [facility] Address: [address] [place] [address] Result Comment: The [place] Diabetes [employer] (ADA) provides guidance for cutoff [...] Standards of Medical Care in Diabetes 2016, [place] [employer]. Diabetes Care. 2016.39(Suppl 1). Performed By: #### 2 4321-2, , 2776-02 ####[facility] LABORATORYCLIA [id number] [place] [id number] [place] Potassium [Moles/Vol] 4.3 mmol/L Normal 3.7-5.1 [facility] Comment on above: Order Comment: Speci men Type: BLOOD SPECIMENOrdering Facility: [facility] Address: [address] [place] [address] Performed By: #### 2 4321-2, , 2776-02 ####[facility] LABORATORYCLIA [id number] [place] [id number] [place] Sodium [Moles/Vol] 136 mmol/L Normal 136-144 [facility] Comment on above: Order Comment: Speci men Type: BLOOD SPECIMENOrdering Facility: [facility] Address: [address] [place] [address] Performed By: #### 2 4321-2, , 2776-02 ####[facility] LABORATORYCLIA [id number] [place] [id number] [place] Urea nitrogen [Mass/Vol] 10 mg/dL Normal 7-21 [facility] Comment on above: Order Comment: Speci men Type: BLOOD SPECIMENOrdering Facility: [facility] Address: [address] [place] [address] Performed By: #### 2 4321-2, , 2776-02 ####[facility] LABORATORYCLIA [id number] [place] [id number] [place] CASE MGT INIT ASSESon 2023 CASE MGT INIT ASSES Normal [facility] CBC panel Auto (Bld)on 05-25 Erythrocyte distribution width (RBC) [Ratio] 13.3 % Normal 11.5-15.0 [facility] Comment on above: Order Comment: Speci men Type: BLOOD SPECIMENOrdering Facility: [facility] Address: [address] [place] [address] Performed By: #### 5 8410-2 ####[facility] LABORATORYCLIA [id number] [address] [place] Hematocrit (Bld) [Volume fraction] 33.8 % Low 36.0-46.0 [facility] Comment on above: Order Comment: Speci men Type: BLOOD SPECIMENOrdering Facility: [facility] Address: [address] [place] [address] Performed By: #### 5 8410-2 ####[facility] LABORATORYCLIA [id number] [address] [place] Hemoglobin (Bld) [Mass/Vol] 11.5 g/dL Normal 11.5-15.5 [facility] Comment on above: Order Comment: Speci men Type: BLOOD SPECIMENOrdering Facility: [facility] Address: [address] [place] [address] Performed By: #### 5 8410-2 ####[facility] LABORATORYCLIA [id number] [address] [place] MCH (RBC) [Entitic mass] 30.5 pg Normal 26.0-34.0 [facility] Comment on above: Order Comment: Speci men Type: BLOOD SPECIMENOrdering Facility: [facility] Address: [address] [place] [address] Performed By: #### 5 8410-2 ####[facility] LABORATORYCLIA [id number] [address] [place] MCHC (RBC) [Mass/Vol] 34.0 g/dL Normal 30.5-36.0 [facility] Comment on above: Order Comment: Speci men Type: BLOOD SPECIMENOrdering Facility: [facility] Address: [address] [place] [address] Performed By: #### 5 8410-2 ####[facility] LABORATORYCLIA [id number] [address] MCV (RBC) [Entitic vol] 89.7 fL Normal 80.0-100.0 [facility] Comment on above: Order Comment: Speci men Type: BLOOD SPECIMENOrdering Facility: [facility] Address: [address] [place] [address] Performed By: #### 5 8410-2 ####[facility] LABORATORYCLIA [id number] [place] [id number] [place] Nucleated RBC (Bld) [#/Vol] 10*3/uL Normal <0.01 [facility] Comment on above: Order Comment: Speci men Type: BLOOD SPECIMENOrdering Facility: [facility] Address: [address] [place] [address] Performed By: #### 5 8410-2 ####[facility] LABORATORYCLIA [id number] [place] [id number] [place] Platelet mean volume (Bld) [Entitic vol] 11.7 fL Normal 9.0-12.7 [facility] Comment on above: Order Comment: Speci men Type: BLOOD SPECIMENOrdering Facility: [facility] Address: [address] [place] [address] Performed By: #### 5 8410-2 ####[facility] LABORATORYCLIA [id number] [place] [address] [place] Platelets (Bld) [#/Vol] 181 10*3/uL Normal 150-400 [facility] Comment on above: Order Comment: Speci men Type: BLOOD SPECIMENOrdering Facility: [facility] Address: [address] [place] [address] Performed By: #### 5 8410-2 ####[facility] LABORATORYCLIA [id number] [place] [id number] [place] RBC (Bld) [#/Vol] 3.77 10*6/uL Low 3.90-5.20 [facility] Comment on above: Order Comment: Speci men Type: BLOOD SPECIMENOrdering Facility: [facility] Address: [address] [place] [address] Performed By: #### 5 8410-2 ####[facility] LABORATORYCLIA [id number] [place] [id number] [place] WBC (Bld) [#/Vol] 5.34 10*3/uL Normal 3.70-11.00 [facility] Comment on above: Order Comment: Speci men Type: BLOOD SPECIMENOrdering Facility: [facility] Address: [address] [place] [address] Performed By: #### 5 8410-2 ####[facility] LABORATORYCLIA [id number] [place] [id number] [place] [facility] Magnesium [Mass/Vol] 1.6 mg/dL Low 1.7-2.3 [facility] Comment on above: Order Comment: Speci men Type: BLOOD SPECIMENOrdering Facility: [facility] Address: [address] [place] [address] Performed By: #### 2 4321-2, , 2776-02 ####[facility] LABORATORYCLIA [id number] [place] [address] [place] NUTRITIONon 05-26-2023 NUTRITION Normal [facility] Phosphate SerPl-ncon 05-25 Phosphate [Mass/Vol] 4.5 mg/dL Normal 2.7-4.8 [facility] Comment on above: Order Comment: Speci men Type: BLOOD SPECIMENOrdering Facility: [facility] Address: [address] [place], [place] [address] Performed By: #### 2 4321-2, , 2776-02 ####[facility] LABORATORYCLIA [id number] [place] [address] [place] XR ABDOMEN 1V SUPINEon 05-25 XR ABDOMEN 1V SUPINE Normal [facility] ANES POSTPROC EVALon 024 ANES POSTPROC EVAL Normal [facility] ANES PRE-OPon 05-25-2023 ANES PRE-OP Normal [facility] HISTORY PHYSICALon HISTORY PHYSICAL Normal [facility] NURSING PROGon 05-25-2023 NURSING PROG Normal [facility] NURSING PROG Normal [facility] Upper GI endoscopyon 024 Upper GI endoscopy Normal [facility] CNPNon 05-24-2023 CNPN Normal [facility] Health Recordson 2023 Home Health Records [id number] 0E#1.00TIFF Normal [facility] Basic metabolic 2000 panelon 05-22-2023 Anion gap [Moles/Vol] 10 mmol/L Normal 9-18 [facility] Comment on above: Order Comment: Speci men Type: BLOOD SPECIMENOrdering Facility: [facility] Address: [address] [place] [address] Performed By: #### 2 4321-2, , 2776-02 ####[facility] LABORATORYCLIA [id number] [place] [id number] [place] Calcium [Mass/Vol] 8.9 mg/dL Normal 8.5-10.2 [facility] Comment on above: Order Comment: Speci men Type: BLOOD SPECIMENOrdering Facility: [facility] Address: [address] [place] [address] Performed By: #### 2 432-2, , 2776-02 ####[facility] LABORATORYCLIA [id number] [place] [id number] [place] Chloride [Moles/Vol] 110 mmol/L High 97-105 [facility] Comment on above: Order Comment: Speci men Type: BLOOD SPECIMENOrdering Facility: [facility] Address: [address] [place] [address] Performed By: #### 2 4321-2, , 2776-02 ####[facility] LABORATORYCLIA [id number] [place] [id number] [place] CO2 [Moles/Vol] 23 mmol/L Normal 22-30 [facility] Comment on above: Order Comment: Speci men Type: BLOOD SPECIMENOrdering Facility: [facility] Address: [address] [place] [address] Performed By: #### 2 4321-2, , 2776-02 ####[facility] LABORATORYCLIA [id number] [place] [id number] [place] Creatinine [Mass/Vol] 0.73 mg/dL Normal 0.58-0.96 [facility] Comment on above: Order Comment: Geraldo marrero Type: BLOOD SPECIMENOrdering Facility: [facility] Address: [address] [place] [address] Performed By: #### 2 4321-2, 09710-9, 2776-02 ####[facility] LABORATORYCLIA [id number] [place] [id number] [place] Creatinine and Glomerular filtration rate.predicted panel (S/P/Bld) 111 mL/min/1.73m??? Normal >=60 [facility] Comment on above: Order Comment: Geraldo marrero Type: BLOOD SPECIMENOrdering Facility: [facility] Address: [address] [place] [address] Result Comment: Jessica mated Glomerular Filtration Rate [...] Performed By: #### 2 4321-2, , 2776-02 ####[facility] LABORATORYCLIA [id number] [place] [id number] [place] Glucose [Mass/Vol] 73 mg/dL Low 74-99 [facility] Comment on above: Order Comment: Geraldo marrero Type: BLOOD SPECIMENOrdering Facility: [facility] Address: [address] [place] [address] Result Comment: The [place] Diabetes [employer] (ADA) provides guidance for cutoff [...] Standards of Medical Care in Diabetes 2016, [place] [employer]. Diabetes Care. 2016.39(Suppl 1). Performed By: #### 2 4321-2, , 2776-02 ####[facility] LABORATORYCLIA [id number] [place] [id number] [place] Potassium [Moles/Vol] 3.7 mmol/L Normal 3.7-5.1 [facility] Comment on above: Order Comment: Speci men Type: BLOOD SPECIMENOrdering Facility: [facility] Address: [address] [place] [address] Performed By: #### 2 4321-2, , 2776-02 ####[facility] LABORATORYCLIA [id number] [place] [id number] [place] Sodium [Moles/Vol] 143 mmol/L Normal 136-144 [facility] Comment on above: Order Comment: Speci men Type: BLOOD SPECIMENOrdering Facility: [facility] Address: [address] [place] [address] Performed By: #### 2 4321-2, , 2776-02 ####[facility] LABORATORYCLIA [id number] [place] [id number] [place] Urea nitrogen [Mass/Vol] 6 mg/dL Low 7-21 [facility] Comment on above: Order Comment: Speci men Type: BLOOD SPECIMENOrdering Facility: [facility] Address: [address] [place] [address] Performed By: #### 2 4321-2, , 2776-02 ####[facility] LABORATORYCLIA [id number] [place] [id number] [place] CASE MANAGEMon 05-22-2023 CASE MANAGEM Normal [facility] CNDSon 05-22-2023 CNDS Normal [facility] Magnesium SerPl-mCncon 05-21 Magnesium [Mass/Vol] 1.9 mg/dL Normal 1.7-2.3 [facility] Comment on above: Order Comment: Speci men Type: BLOOD SPECIMENOrdering Facility: [facility] Address: [address] [place], [place] [address] [id number] Performed By: #### 2 4321-2, , 2776-02 ####[facility] LABORATORYCLIA [id number] [place] [address] [place] NUTRITIONon 05-22-2023 NUTRITION Normal [facility] Phosphate SerPl-mCncon 05-21 Phosphate [Mass/Vol] 4.3 mg/dL Normal 2.7-4.8 [facility] Comment on above: Order Comment: Speci men Type: BLOOD SPECIMENOrdering Facility: [facility] Address: [address] [place] [id number] Performed By: #### 2 4321-2, , 2776-02 ####[facility] LABORATORYCLIA [id number] [place] [id number] [place] Basic metabolic 2000 panelon 05-21-2023 Anion gap [Moles/Vol] 12 mmol/L Normal 9-18 [facility] Comment on above: Order Comment: Speci men Type: BLOOD SPECIMENOrdering Facility: [facility] Address: [address] [place] [address] Performed By: #### 2 4321-2, , 2776-02 ####[facility] LABORATORYCLIA [id number] [place] [id number] [place] Calcium [Mass/Vol] 8.8 mg/dL Normal 8.5-10.2 [facility] Comment on above: Order Comment: Speci men Type: BLOOD SPECIMENOrdering Facility: [facility] Address: [address] [place] [address] Performed By: #### 2 4321-2, , 2776-02 ####[facility] LABORATORYCLIA [id number] [place] [id number] [place] Chloride [Moles/Vol] 107 mmol/L High 97-105 [facility] Comment on above: Order Comment: Speci men Type: BLOOD SPECIMENOrdering Facility: [facility] Address: [address] [place] [address] Performed By: #### 2 4321-2, , 2776-02 ####[facility] LABORATORYCLIA [id number] [place] [address] [place] CO2 [Moles/Vol] 19 mmol/L Low 22-30 [facility] Comment on above: Order Comment: Geraldo marrero Type: BLOOD SPECIMENOrdering Facility: [facility] Address: [address] [place] [address] Performed By: #### 2 4321-2, , 2776-02 ####[facility] LABORATORYCLIA [id number] [place] [id number] [place] Creatinine [Mass/Vol] 0.72 mg/dL Normal 0.58-0.96 [facility] Comment on above: Order Comment: Lyssai men Type: BLOOD SPECIMENOrdering Facility: [facility] Address: [address] [place] [address] Performed By: #### 2 4321-2, , 2776-02 ####[facility] LABORATORYCLIA [id number] [place] [address] [place] [facility] Creatinine and Glomerular filtration rate.predicted panel (S/P/Bld) 113 mL/min/1.73m??? Normal >=60 [facility] Comment on above: Order Comment: Geraldo marrero Type: BLOOD SPECIMENOrdering Facility: [facility] Address: [address] [place] [address] Result Comment: Jessica mated Glomerular Filtration Rate [...] Performed By: #### 2 4321-2, , 2776-02 ####[facility] LABORATORYCLIA [id number] [place] [address] [place] Glucose [Mass/Vol] 85 mg/dL Normal 74-99 [facility] Comment on above: Order Comment: Speci men Type: BLOOD SPECIMENOrdering Facility: [facility] Address: [address] [place], [place] [address] Result Comment: The [place] Diabetes Association (ADA) provides guidance for cutoff [...] Standards of Medical Care in Diabetes 2016, [place] [employer]. Diabetes Care. 2016.39(Suppl 1). Performed By: #### 2 4321-2, , 2776-02 ####[facility] LABORATORYCLIA [id number] [place] [address] [place] Potassium [Moles/Vol] 3.8 mmol/L Normal 3.7-5.1 [facility] Comment on above: Order Comment: Speci men Type: BLOOD SPECIMENOrdering Facility: [facility] Address: [address] [place], [place] [address] Performed By: #### 2 4321-2, , 2776-02 ####[facility] LABORATORYCLIA [id number] [place] [id number] [place] Sodium [Moles/Vol] 138 mmol/L Normal 136-144 [facility] Comment on above: Order Comment: Speci men Type: BLOOD SPECIMENOrdering Facility: [facility] Address: [address] [place] [address] Performed By: #### 2 4321-2, , 2776-02 ####[facility] LABORATORYCLIA [id number] [place] [id number] [place] Urea nitrogen [Mass/Vol] 5 mg/dL Low 7-21 [facility] Comment on above: Order Comment: Speci men Type: BLOOD SPECIMENOrdering Facility: [facility] Address: [address] [place], [place] [address] Performed By: #### 2 4321-2, 38327-0, 2777-1 ####[facility] LABORATORYCLIA [id number] [place] [id number] [facility] CASE MANAGEMon 05-21-2023 CASE MANAGEM Normal [facility] CASE MANAGEM Normal [facility] CASE MGT INIT ASSESon 2023 CASE MGT INIT ASS Normal [facility] Magnesium SerPl-mCncon 05-20 Magnesium [Mass/Vol] 1.9 mg/dL Normal 1.7-2.3 [facility] Comment on above: Order Comment: Speci men Type: BLOOD SPECIMENOrdering Facility: [facility] Address: [address] [place], [place] [address] Performed By: #### 2 4321-2, , 2777- ####[facility] LABORATORYCLIA [id number] [place] [id number] [facility] NURSING PROGon 05-21-2023 NURSING PROG [facility] Phosphate [Mass/Vol] 4.1 mg/dL Normal 2.7-4.8 [facility] Comment on above: Order Comment: Speci men Type: BLOOD SPECIMENOrdering Facility: [facility] Address: [address] [place], [place] [address] Performed By: #### 2 4321-2, 47540-2, 2777-1 ####[facility] LABORATORYCLIA [id number] [place] [id number] [place] ALLIED HEALTHon 05-20-2023 ALLIED HEALTH Normal [facility] ANES POSTPROC EVALon 024 ANES POSTPROC EVAL Normal [facility] ANES PRE-OPon 05-20-2023 ANES PRE-OP Normal [facility] Bacteria Ur Culton Bacteria identified Cx Nom (U) ORGANISM ID: 1 10,000 -<50,000 CFU/ml Normal urogenital annika Normal [facility] Comment on above: Performed By: #### 6 30-4 ####[facility] LABCLIA [id number] [facility] [id number] [place] [address] [place] Basic metabolic 2000 panelon 05-20-2023 Anion gap [Moles/Vol] 12 mmol/L Normal 9-18 [facility] Comment on above: Order Comment: Speci men Type: BLOOD SPECIMENOrdering Facility: [facility] Address: [address] [place] [address] Performed By: #### 2 4321-2, , 2776-02 ####[facility]ATORYCLIA [id number] [place] [id number] [place] Calcium [Mass/Vol] 8.8 mg/dL Normal 8.5-10.2 [facility] Comment on above: Order Comment: Speci men Type: BLOOD SPECIMENOrdering Facility: [facility] Address: [address] [place] [address] Performed By: #### 2 432-2, , 2776-02 ####[facility]ORATORYCLIA [id number] [place] [id number] [place] Chloride [Moles/Vol] 109 mmol/L High 97-105 [facility] Comment on above: Order Comment: Speci men Type: BLOOD SPECIMENOrdering Facility: [facility] Address: [address] [place] [address] Performed By: #### 2 4321-2, , 2776-02 ####[facility] LABORATORYCLIA [id number] [place] [id number] [place] CO2 [Moles/Vol] 21 mmol/L Low 22-30 [facility] Comment on above: Order Comment: Speci men Type: BLOOD SPECIMENOrdering Facility: [facility] Address: [address] [place] [address] Performed By: #### 2 4321-2, , 2776-02 ####[facility] LABORATORYCLIA [id number] [place] [id number] [place] Creatinine [Mass/Vol] 0.75 mg/dL Normal 0.58-0.96 [facility] Comment on above: Order Comment: Geraldo marrero Type: BLOOD SPECIMENOrdering Facility: [facility] Address: [address] [place] [address] Performed By: #### 2 4321-2, 93620-3, 2776-02 ####[facility] LABORATORYCLIA [id number] [place] [id number] [place] Creatinine and Glomerular filtration rate.predicted panel (S/P/Bld) 107 mL/min/1.73m??? Normal >=60 [facility] Comment on above: Order Comment: Geraldo marrero Type: BLOOD SPECIMENOrdering Facility: [facility] Address: [address] [place] [address] Result Comment: Jessica mated Glomerular Filtration Rate [...] Performed By: #### 2 4321-2, , 2776-02 ####[facility] LABORATORYCLIA [id number] [place] [id number] [place] Glucose [Mass/Vol] 91 mg/dL Normal 74-99 [facility] Comment on above: Order Comment: Geraldo marrero Type: BLOOD SPECIMENOrdering Facility: [facility] Address: [address] [place] [address] Result Comment: The [place] [employer] (ADA) provides guidance for cutoff [...] Standards of Medical Care in Diabetes 2016, [place] [employer]. Diabetes Care. 2016.39(Suppl 1). Performed By: #### 2 4321-2, , 2776-02 ####[facility] LABORATORYCLIA [id number] [place] [address] [place] Potassium [Moles/Vol] 4.1 mmol/L Normal 3.7-5.1 [facility] Comment on above: Order Comment: Speci men Type: BLOOD SPECIMENOrdering Facility: [facility] Address: [address] [place] [address] Performed By: #### 2 4321-2, , 2776-02 ####[facility] LABORATORYCLIA [id number] [place] [id number] [place] Sodium [Moles/Vol] 142 mmol/L Normal 136-144 [facility] Comment on above: Order Comment: Speci men Type: BLOOD SPECIMENOrdering Facility: [facility] Address: [address] [place] [address] Performed By: #### 2 4321-2, , 2776-02 ####[facility] LABORATORYCLIA [id number] [place] [id number] [place] Urea nitrogen [Mass/Vol] 6 mg/dL Low 7-21 [facility] Comment on above: Order Comment: Speci men Type: BLOOD SPECIMENOrdering Facility: [facility] Address: [address] [place] [address] Performed By: #### 2 4321-2, , 2776-02 ####[facility] LABORATORYCLIA [id number] [place] [id number] [place] CBC panel Auto (Bld)on 05-19 Erythrocyte distribution width (RBC) [Ratio] 12.9 % Normal 11.5-15.0 [facility] Comment on above: Order Comment: Speci men Type: BLOOD SPECIMENOrdering Facility: [facility] Address: [address] [place] [address] Performed By: #### 5 8410-2 ####[facility] LABORATORYCLIA [id number] [address] [place] Hematocrit (Bld) [Volume fraction] 36.0 % Normal 36.0-46.0 [facility] Comment on above: Order Comment: Speci men Type: BLOOD SPECIMENOrdering Facility: [facility] Address: [address] [place] [address] Performed By: #### 5 8410-2 ####[facility] LABORATORYCLIA [id number] [address] [place] [facility] Hemoglobin (Bld) [Mass/Vol] 12.4 g/dL Normal 11.5-15.5 [facility] Comment on above: Order Comment: Speci men Type: BLOOD SPECIMENOrdering Facility: [facility] Address: [address] [place] [address] Performed By: #### 5 8410-2 ####[facility] LABORATORYCLIA [id number] [address] [place] MCH (RBC) [Entitic mass] 30.8 pg Normal 26.0-34.0 [facility] Comment on above: Order Comment: Speci men Type: BLOOD SPECIMENOrdering Facility: [facility] Address: [address] [place] [address] Performed By: #### 5 8410-2 ####[facility] LABORATORYCLIA [id number] [address] [place] MCHC (RBC) [Mass/Vol] 34.4 g/dL Normal 30.5-36.0 [facility] Comment on above: Order Comment: Speci men Type: BLOOD SPECIMENOrdering Facility: [facility] Address: [address] [place] [address] Performed By: #### 5 8410-2 ####[facility] LABORATORYCLIA [id number] [address] MCV (RBC) [Entitic vol] 89.6 fL Normal 80.0-100.0 [facility] Comment on above: Order Comment: Speci men Type: BLOOD SPECIMENOrdering Facility: [facility] Address: [address] [place] [address] Performed By: #### 5 8410-2 ####[facility] LABORATORYCLIA [id number] [place] [id number] [place] Nucleated RBC (Bld) [#/Vol] 10*3/uL Normal <0.01 [facility] Comment on above: Order Comment: Speci men Type: BLOOD SPECIMENOrdering Facility: [facility] Address: [address] [place] [address] Performed By: #### 5 8410-2 ####[facility] LABORATORYCLIA [id number] [place] [address] [place] Platelet mean volume (Bld) [Entitic vol] 11.4 fL Normal 9.0-12.7 [facility] Comment on above: Order Comment: Speci men Type: BLOOD SPECIMENOrdering Facility: [facility] Address: [address] [place] [address] Performed By: #### 5 8410-2 ####[facility] LABORATORYCLIA [id number] [place] [address] [place] Platelets (Bld) [#/Vol] 176 10*3/uL Normal 150-400 [facility] Comment on above: Order Comment: Speci men Type: BLOOD SPECIMENOrdering Facility: [facility] Address: [address] [place] [address] Performed By: #### 5 8410-2 ####[facility] LABORATORYCLIA [id number] [place] [id number] [place] RBC (Bld) [#/Vol] 4.02 10*6/uL Normal 3.90-5.20 [facility] Comment on above: Order Comment: Speci men Type: BLOOD SPECIMENOrdering Facility: [facility] Address: [address] [place] [address] Performed By: #### 5 8410-2 ####[facility] LABORATORYCLIA [id number] [place] [id number] [place] WBC (Bld) [#/Vol] 2.51 10*3/uL Low 3.70-11.00 [facility] Comment on above: Order Comment: Speci men Type: BLOOD SPECIMENOrdering Facility: [facility] Address: [facility] [place] [address] Performed By: #### 5 8410-2 ####[facility] LABORATORYCLIA [id number] [place] [address] [place] HISTORY PHYSICALon HISTORY PHYSICAL Normal [facility] Magnesium SerPl-mCncon 05-19 Magnesium [Mass/Vol] 1.9 mg/dL Normal 1.7-2.3 [facility] Comment on above: Order Comment: Speci men Type: BLOOD SPECIMENOrdering Facility: [facility] Address: [facility] [address] Performed By: #### 2 4321-2, , 277-1 ####[facility] LABORATORYCLIA [id number] [place] [id number] [place] NURSING PROGon 05-20-2023 NURSING PROG Normal [facility] NURSING PROG Normal [facility] NURSING PROG Normal [facility] NUTRITIONon 05-20-2023 NUTRITION Normal [facility] Phosphate SerPl-mCncon 05-19 Phosphate [Mass/Vol] 3.8 mg/dL Normal 2.7-4.8 [facility] Comment on above: Order Comment: Speci men Type: BLOOD SPECIMENOrdering Facility: [facility] Address: [address] [place] [address] Performed By: #### 2 4321-2, , 277- ####[facility] LABORATORYCLIA [id number] [place] [id number] [place] Upper GI endoscopyon 024 Upper GI endoscopy Normal [facility] XR ESOPHAGRAMon 05-20-2023 XR ESOPHAGRAM Normal [facility] Basic metabolic 2000 panelon 05-19-2023 Anion gap [Moles/Vol] 16 mmol/L Normal 9-18 [facility] Comment on above: Order Comment: Speci men Type: BLOOD SPECIMENOrdering Facility: [facility] Address: [address] [place] [address] Performed By: #### 2 4321-2 ####[facility] LABORATORYCLIA [id number] [place] [id number] [place] Calcium [Mass/Vol] 8.4 mg/dL Low 8.5-10.2 [facility] Comment on above: Order Comment: Speci men Type: BLOOD SPECIMENOrdering Facility: [facility] Address: [address] [place] [address] Performed By: #### 2 4321-2 ####[facility] LABORATORYCLIA [id number] [place] [id number] [place] Chloride [Moles/Vol] 104 mmol/L Normal 97-105 [facility] Comment on above: Order Comment: Speci men Type: BLOOD SPECIMENOrdering Facility: [facility] Address: [address] [place] [address] Performed By: #### 2 4321-2 ####[facility] LABORATORYCLIA [id number] [place] [id number] [place] CO2 [Moles/Vol] 15 mmol/L Low 22-30 [facility] Comment on above: Order Comment: Speci men Type: BLOOD SPECIMENOrdering Facility: [facility] Address: [address] [place] [address] Performed By: #### 2 4321-2 ####[facility] LABORATORYCLIA [id number] [place] [id number] [place] Creatinine [Mass/Vol] 0.71 mg/dL Normal 0.58-0.96 [facility] Comment on above: Order Comment: Speci men Type: BLOOD SPECIMENOrdering Facility: [facility] Address: [address] [place] [address] Performed By: #### 2 4321-2 ####[facility] LABORATORYCLIA [id number] [place] [id number] [place] Creatinine and Glomerular filtration rate.predicted panel (S/P/Bld) 115 mL/min/1.73m??? Normal >=60 [facility] Comment on above: Order Comment: Speci men Type: BLOOD SPECIMENOrdering Facility: [facility] Address: [address] [place] [address] Result Comment: Jessica mated Glomerular Filtration Rate [...] actual GFR. Performed By: #### 2 4321-2 ####[facility] LABORATORYCLIA [id number] [place] [address] [place] Glucose [Mass/Vol] 73 mg/dL Low 74-99 [facility] Comment on above: Order Comment: Speci men Type: BLOOD SPECIMENOrdering Facility: [facility] Address: [address] [place] [address] Result Comment: The [place] [employer] (ADA) provides guidance for cutoff [...] Standards of Medical Care in Diabetes 2016, [place] [employer]. Diabetes Care. 2016.39(Suppl 1). Performed By: #### 2 4321-2 ####[facility] LABORATORYCLIA [id number] [place] [id number] [place] Potassium [Moles/Vol] 4.1 mmol/L Normal 3.7-5.1 [facility] Comment on above: Order Comment: Speci men Type: BLOOD SPECIMENOrdering Facility: [facility] Address: [address] [place] [address] Performed By: #### 2 4321-2 ####[facility] LABORATORYCLIA [id number] [place] [id number] [place] Sodium [Moles/Vol] 135 mmol/L Low 136-144 [facility] Comment on above: Order Comment: Speci men Type: BLOOD SPECIMENOrdering Facility: [facility] Address: [address] [place] [address] Performed By: #### 2 4321-2 ####[facility] LABORATORYCLIA [id number] [place] [id number] [place] Urea nitrogen [Mass/Vol] 8 mg/dL Normal 7-21 [facility] Comment on above: Order Comment: Speci men Type: BLOOD SPECIMENOrdering Facility: [facility] Address: [address] [place] [address] Performed By: #### 2 4321-2 ####[facility] LABORATORYCLIA [id number] [address] [place] CBC panel Auto (Bld)on 05-18 Erythrocyte distribution width (RBC) [Ratio] 12.6 % Normal 11.5-15.0 [facility] Comment on above: Order Comment: Speci men Type: BLOOD SPECIMENOrdering Facility: [facility] Address: [address] [place] [address] Performed By: #### 5 8410-2 ####[facility] LABORATORYCLIA [id number] [address] [place] Hematocrit (Bld) [Volume fraction] 33.3 % Low 36.0-46.0 [facility] Comment on above: Order Comment: Speci men Type: BLOOD SPECIMENOrdering Facility: [facility] Address: [address] [place] [address] Performed By: #### 5 8410-2 ####[facility] LABORATORYCLIA [id number] [place] [id number] [place] Hemoglobin (Bld) [Mass/Vol] 11.2 g/dL Low 11.5-15.5 [facility] Comment on above: Order Comment: Speci men Type: BLOOD SPECIMENOrdering Facility: [facility] Address: [address] [place] [address] Performed By: #### 5 8410-2 ####[facility] LABORATORYCLIA [id number] [address] [place] MCH (RBC) [Entitic mass] 30.5 pg Normal 26.0-34.0 [facility] Comment on above: Order Comment: Speci men Type: BLOOD SPECIMENOrdering Facility: [facility] Address: [address] [place] [address] Performed By: #### 5 8410-2 ####[facility] LABORATORYCLIA [id number] [address] [place] MCHC (RBC) [Mass/Vol] 33.6 g/dL Normal 30.5-36.0 [facility] Comment on above: Order Comment: Speci men Type: BLOOD SPECIMENOrdering Facility: [facility] Address: [address] [place] [address] Performed By: #### 5 8410-2 ####[facility] LABORATORYCLIA [id number] [address] [place] MCV (RBC) [Entitic vol] 90.7 fL Normal 80.0-100.0 [facility] Comment on above: Order Comment: Speci men Type: BLOOD SPECIMENOrdering Facility: [facility] Address: [address] [place] [address] Performed By: #### 5 8410-2 ####[facility] LABORATORYCLIA [id number] [address] [place] Nucleated RBC (Bld) [#/Vol] 10*3/uL Normal <0.01 [facility] Comment on above: Order Comment: Speci men Type: BLOOD SPECIMENOrdering Facility: [facility] Address: [address] [place] [address] Performed By: #### 5 8410-2 ####[facility] LABORATORYCLIA [id number] [address] Platelet mean volume (Bld) [Entitic vol] 11.4 fL Normal 9.0-12.7 [facility] Comment on above: Order Comment: Speci men Type: BLOOD SPECIMENOrdering Facility: [facility] Address: [address] [place] [address] Performed By: #### 5 8410-2 ####[facility] LABORATORYCLIA [id number] [place] [id number] [place] Platelets (Bld) [#/Vol] 150 10*3/uL Normal 150-400 [facility] Comment on above: Order Comment: Speci men Type: BLOOD SPECIMENOrdering Facility: [facility] Address: [address] [place] [address] Performed By: #### 5 8410-2 ####[facility] LABORATORYCLIA [id number] [place] [id number] [place] RBC (Bld) [#/Vol] 3.67 10*6/uL Low 3.90-5.20 [facility] Comment on above: Order Comment: Speci men Type: BLOOD SPECIMENOrdering Facility: [facility] Address: [address] [place] [address] Performed By: #### 5 8410-2 ####[facility] LABORATORYCLIA [id number] [place] [id number] [place] WBC (Bld) [#/Vol] 3.57 10*3/uL Low 3.70-11.00 [facility] Comment on above: Order Comment: Speci men Type: BLOOD SPECIMENOrdering Facility: [facility] Address: [address] [place] [address] Performed By: #### 5 8410-2 ####[facility] LABORATORYCLIA [id number] [place] [id number] [place] NURSING PROGon 05-19-2023 NURSING PROG Normal [facility] NURSING PROG Normal [facility] NURSING PROG Normal [facility] NUTRITIONon 05-19-2023 NUTRITION Normal [facility] Urinalysis complete panel (U )on 05-19-2023 Bacteria LM.HPF (Urine sed) [#/Area] Few Abnormal None Seen [facility] Comment on above: Order Comment: Speci men Type: URINE SPECIMENOrdering Facility: [facility] Address: [address] [place] [address] Performed By: #### 2 4356-8 ####[facility] LABORATORYCLIA [id number] [place] [address] [place] Bilirubin Ql (U) Negative Normal Negative [facility] Comment on above: Order Comment: Speci men Type: URINE SPECIMENOrdering Facility: [facility] Address: [address] [place] [address] Performed By: #### 2 4356-8 ####OS[facility] LABORATORYCLIA [id number] [place] [address] [place] Clarity (Unsp spec) Turbid Abnormal Clear [facility] Comment on above: Order Comment: Speci men Type: URINE SPECIMENOrdering Facility: [facility] Address: [address] [place] [address] Performed By: #### 2 4356-8 ####[facility] LABORATORYCLIA [id number] [place] [address] [place] Color (U) Yellow Normal Yellow [facility] Comment on above: Order Comment: Speci men Type: URINE SPECIMENOrdering Facility: [facility] Address: [address] [place] [address] Performed By: #### 2 4356-8 ####OS[facility] LABORATORYCLIA [id number] [address] [place] Epithelial cells LM.HPF (Urine sed) [#/Area] Moderate Normal [facility] Comment on above: Order Comment: Speci men Type: URINE SPECIMENOrdering Facility: [facility] Address: [address] [place] [address] Performed By: #### 2 4356-8 ####[facility] LABORATORYCLIA [id number] [place] [address] [place] Glucose Test strip (U) [Mass/Vol] Negative Normal Trace, Negative [facility] Comment on above: Order Comment: Speci men Type: URINE SPECIMENOrdering Facility: [facility] Address: [address] [place] [address] Performed By: #### 2 4356-8 ####[facility] LABORATORYCLIA [id number] [place] [address] [place] Hemoglobin Ql (U) Trace Normal Negative, Trace Fa [facility] Comment on above: Order Comment: Speci men Type: URINE SPECIMENOrdering Facility: [facility] Address: [address] [place] [address] Performed By: #### 2 4356-8 ####[facility] LABORATORYCLIA [id number] [place] [address] [place] Ketones Ql (U) 2+ Abnormal Negative, Trace [facility] Comment on above: Order Comment: Speci men Type: URINE SPECIMENOrdering Facility: [facility] Address: [address] [place] [address] Performed By: #### 2 4356-8 ####[facility] LABORATORYCLIA [id number] [address] [place] Leukocyte esterase Test strip Ql (U) 500 Patito/uL Abnormal Negative, 25 Patito/uL [facility] Comment on above: Order Comment: Speci men Type: URINE SPECIMENOrdering Facility: [facility] Address: [address] [place] [address] Performed By: #### 2 4356-8 ####[facility] LABORATORYCLIA [id number] [place] [address] [place] Nitrite Ql (U) Negative Normal Negative [facility] Comment on above: Order Comment: Speci men Type: URINE SPECIMENOrdering Facility: [facility] Address: [address] [place] [address] Performed By: #### 2 4356-8 ####[facility] LABORATORYCLIA [id number] [place] [address] [place] pH (U) 6.0 [pH] Normal 5.0-8.0 [facility] Comment on above: Order Comment: Speci men Type: URINE SPECIMENOrdering Facility: [facility] Address: [address] [place] [address] Performed By: #### 2 4356-8 ####[facility] LABORATORYCLIA [id number] [place] [address] [place] Protein (U) [Mass/Vol] Negative Normal Trace, Negative [facility] Comment on above: Order Comment: Speci men Type: URINE SPECIMENOrdering Facility: [facility] Address: [address] [place] [address] Performed By: #### 2 4356-8 ####[facility] LABORATORYCLIA [id number] [place] [address] [place] RBC LM.HPF (Urine sed) [#/Area] /[HPF] Abnormal 0-3 /HPF [facility] Comment on above: Order Comment: Speci men Type: URINE SPECIMENOrdering Facility: [facility] Address: [address] [place] [address] Performed By: #### 2 4356-8 ####[facility] LABORATORYCLIA [id number] [address] [place] [facility] Specific gravity (U) [Rel density] 1.012 Normal 1.005-1.030 [facility] Comment on above: Order Comment: Speci men Type: URINE SPECIMENOrdering Facility: [facility] Address: [address] [place] [address] Performed By: #### 2 4356-8 ####[facility] LABORATORYCLIA [id number] [address] [place] Urobilinogen Ql (U) Normal Normal Normal [facility] Comment on above: Order Comment: Speci men Type: URINE SPECIMENOrdering Facility: [facility] Address: [address] [place] [address] Performed By: #### 2 4356-8 ####[facility] LABORATORYCLIA [id number] [place] [address] [place] WBC LM.HPF (Urine sed) [#/Area] /[HPF] Abnormal 0-5 /HPF [facility] Comment on above: Order Comment: Speci men Type: URINE SPECIMENOrdering Facility: [facility] Address: [address] [place] [address] Performed By: #### 2 4356-8 ####[facility] LABORATORYCLIA [id number] [address] [place] .Interpretation:on HCV Ab IA Ql Comment Invalid Interpretation Code [facility] Comment on above: Result Comment: Not infected with HCV unless early or acute infection issuspected (which may be delayed in an immunocompromisedindividual), or other evidence exists to indicate HCV infection.Performed at: [facility] [id number] [place], [place] [id number] PhD Cami Neri Performed By: #### 9 [id number], 10023197, 8503586, 2577395, [id number], 4847830, [id number], 5907002, 86504784 ####[facility] [address] [place] [address] 25(OH)D3 [facility] 25-hydroxyvitamin D3 [Mass/Vol] 36.1 ng/mL Normal 31.0-80.0 [facility] Comment on above: Order Comment: Speci men Type: BLOOD SPECIMENOrdering Facility: [facility] Address: [address] [place] [address] Performed By: #### 1 989-3 ####[facility] LABCLIA [id number] [address] [place] Acute Hepatitis A B C Panelo n 05-18-2023 HAV IgM IA Ql Negative Invalid Interpretation Code Negative [facility] Comment on above: Performed By: #### 9 [id number], [id number], 0145723, 5461348, [id number], 1199507, [id number], 6651502, 50351793 ####[facility] [address] [place] [address] HBV core IgM IA Ql Negative Invalid Interpretation Code Negative [facility] Comment on above: Performed By: #### 9 [id number], 87252817, 8080752, 4199749, [id number], 4630408, 1975374313, 5576964, 84267375 ####[facility] [address] [place] [address] HBV surface Ag IA Ql Negative Invalid Interpretation Code Negative [facility] Comment on above: Performed By: #### 9 [id number], 86185480, 5339353, 9872277, [id number], 1601712, [id number], 2814113, 77065954 ####[facility] [address] [place] [address] HCV IgG IA Ql Non-Reactive Invalid Interpretation Code Non Reactive [facility] Comment on above: Result Comment: Perf ormed at: [facility] [id number] [place], [place] [id number] PhD Cami Neri Performed By: #### 9 [id number], 73090757, 5821328, 4930134, [id number], 1083708, [id number], 4327506, 37438198 ####[facility] [address] [place] [id number] CBC W Auto Differential pane l (Bld)on 05-18-2023 Basophils (Bld) [#/Vol] 0.03 10*3/uL Normal <0.11 [facility] Comment on above: Order Comment: Speci men Type: BLOOD SPECIMENOrdering Facility: [facility] Address: [address] [place] [place] [address] Performed By: #### 5 7021-8 ####[facility] LABORATORYCLIA [id number] [place] [address] [place] Basophils/100 WBC (Bld) 0.6 % Normal [facility] Comment on above: Order Comment: Speci men Type: BLOOD SPECIMENOrdering Facility: [facility] Address: [address] [place] [address] Performed By: #### 5 7021-8 ####[facility] LABORATORYCLIA [id number] [place] [address] [place] Differential cell count method Nom (Bld) Auto Normal [facility] Comment on above: Order Comment: Speci men Type: BLOOD SPECIMENOrdering Facility: [facility] Address: [address] [place] [address] Performed By: #### 5 7021-8 ####[facility] LABORATORYCLIA [id number] [place] [address] [place] Eosinophils (Bld) [#/Vol] 0.06 10*3/uL Normal <0.46 [facility] Comment on above: Order Comment: Speci men Type: BLOOD SPECIMENOrdering Facility: [facility] Address: [address] [place] [address] Performed By: #### 5 7021-8 ####[facility] LABORATORYCLIA [id number] [place] [address] [place] Eosinophils/100 WBC (Bld) 1.3 % Normal [facility] Comment on above: Order Comment: Speci men Type: BLOOD SPECIMENOrdering Facility: [facility] Address: [address] [place] [address] Performed By: #### 5 7021-8 ####[facility] LABORATORYCLIA [id number] [address] [place] Erythrocyte distribution width (RBC) [Ratio] 13.1 % Normal 11.5-15.0 [facility] Comment on above: Order Comment: Speci men Type: BLOOD SPECIMENOrdering Facility: [facility] Address: [address] [place] [address] Performed By: #### 5 7021-8 ####[facility] LABORATORYCLIA [id number] [address] [place] Hematocrit (Bld) [Volume fraction] 43.5 % Normal 36.0-46.0 [facility] Comment on above: Order Comment: Speci men Type: BLOOD SPECIMENOrdering Facility: [facility] Address: [address] [place] [address] Performed By: #### 5 7021-8 ####OSAVLDO LABORATORYCLIA [id number] [place] [id number] [place] Hemoglobin (Bld) [Mass/Vol] 14.8 g/dL Normal 11.5-15.5 [facility] Comment on above: Order Comment: Speci men Type: BLOOD SPECIMENOrdering Facility: [facility] Address: [address] [place] [address] Performed By: #### 5 7021-8 ####OS[facility] LABORATORYCLIA [id number] [place] [id number] [place] Immature granulocytes (Bld) [#/Vol] 10*3/uL Normal <0.10 [facility] Comment on above: Order Comment: Speci men Type: BLOOD SPECIMENOrdering Facility: [facility] Address: [address] [place] [address] Performed By: #### 5 7021-8 ####OS[facility] LABORATORYCLIA [id number] [place] [id number] [place] Immature granulocytes/100 WBC (Bld) 0.2 % Normal [facility] Comment on above: Order Comment: Speci men Type: BLOOD SPECIMENOrdering Facility: [facility] Address: [address] [place] [address] Performed By: #### 5 7021-8 ####OS[facility] LABORATORYCLIA [id number] [place] [id number] [place] Lymphocytes (Bld) [#/Vol] 1.27 10*3/uL Normal 1.00-4.00 [facility] Comment on above: Order Comment: Speci men Type: BLOOD SPECIMENOrdering Facility: [facility] Address: [address] [place] [address] Performed By: #### 5 7021-8 ####OS[facility] LABORATORYCLIA [id number] [place] [id number] [place] Lymphocytes/100 WBC (Bld) 26.5 % Normal [facility] Comment on above: Order Comment: Speci men Type: BLOOD SPECIMENOrdering Facility: [facility] Address: [address] [place] [address] Performed By: #### 5 7021-8 ####OS[facility] LABORATORYCLIA [id number] [place] [id number] [place] MCH (RBC) [Entitic mass] 30.4 pg Normal 26.0-34.0 [facility] Comment on above: Order Comment: Speci men Type: BLOOD SPECIMENOrdering Facility: [facility] Address: [address] [place] [address] Performed By: #### 5 7021-8 ####[facility] LABORATORYCLIA [id number] [place] [id number] [place] MCHC (RBC) [Mass/Vol] 34.0 g/dL Normal 30.5-36.0 [facility] Comment on above: Order Comment: Speci men Type: BLOOD SPECIMENOrdering Facility: [facility] Address: [address] [place] [address] Performed By: #### 5 7021-8 ####[facility] LABORATORYCLIA [id number] [place] [address] [place] MCV (RBC) [Entitic vol] 89.3 fL Normal 80.0-100.0 [facility] Comment on above: Order Comment: Speci men Type: BLOOD SPECIMENOrdering Facility: [facility] Address: [address] [place] [address] Performed By: #### 5 7021-8 ####[facility] LABORATORYCLIA [id number] [place] [address] [place] Monocytes (Bld) [#/Vol] 0.26 10*3/uL Normal <0.87 [facility] Comment on above: Order Comment: Speci men Type: BLOOD SPECIMENOrdering Facility: [facility] Address: [address] [place] [address] Performed By: #### 5 7021-8 ####[facility] LABORATORYCLIA [id number] [address] [place] Monocytes/100 WBC (Bld) 5.4 % Normal [facility] Comment on above: Order Comment: Speci men Type: BLOOD SPECIMENOrdering Facility: [facility] Address: [address] [place] [address] Performed By: #### 5 7021-8 ####[facility] LABORATORYCLIA [id number] [place] [address] [place] Neutrophils (Bld) [#/Vol] 3.16 10*3/uL Normal 1.45-7.50 [facility] Comment on above: Order Comment: Speci men Type: BLOOD SPECIMENOrdering Facility: [facility] Address: [address] [place] [address] Performed By: #### 5 7021-8 ####[facility] LABORATORYCLIA [id number] [place] [id number] [place] Neutrophils/100 WBC (Bld) 66.0 % Normal [facility] Comment on above: Order Comment: Speci men Type: BLOOD SPECIMENOrdering Facility: [facility] Address: [address] [place] [address] Performed By: #### 5 7021-8 ####[facility] LABORATORYCLIA [id number] [place] [id number] [place] Nucleated RBC (Bld) [#/Vol] 10*3/uL Normal <0.01 [facility] Comment on above: Order Comment: Speci men Type: BLOOD SPECIMENOrdering Facility: [facility] Address: [address] [place] [address] Performed By: #### 5 7021-8 ####[facility] LABORATORYCLIA [id number] [place] [address] [place] Nucleated RBC/100 WBC (Bld) [Ratio] 0.0 /100 WBC Normal [facility] Comment on above: Order Comment: Speci men Type: BLOOD SPECIMENOrdering Facility: [facility] Address: [address] [place] [address] Performed By: #### 5 7021-8 ####[facility] LABORATORYCLIA [id number] [place] [id number] [place] Platelet mean volume (Bld) [Entitic vol] 11.8 fL Normal 9.0-12.7 [facility] Comment on above: Order Comment: Speci men Type: BLOOD SPECIMENOrdering Facility: [facility] Address: [address] [place] [address] Performed By: #### 5 7021-8 ####[facility] LABORATORYCLIA [id number] [place] [id number] [place] Platelets (Bld) [#/Vol] 226 10*3/uL Normal 150-400 [facility] Comment on above: Order Comment: Speci men Type: BLOOD SPECIMENOrdering Facility: [facility] Address: [address] [place] [address] Performed By: #### 5 7021-8 ####[facility] LABORATORYCLIA [id number] [place] [id number] [place] RBC (Bld) [#/Vol] 4.87 10*6/uL Normal 3.90-5.20 [facility] Comment on above: Order Comment: Speci men Type: BLOOD SPECIMENOrdering Facility: [facility] Address: [address] [place] [address] Performed By: #### 5 7021-8 ####[facility] LABORATORYCLIA [id number] [place] [id number] [place] WBC (Bld) [#/Vol] 4.79 10*3/uL Normal 3.70-11.00 [facility] Comment on above: Order Comment: Speci men Type: BLOOD SPECIMENOrdering Facility: [facility] Address: [address] [place] [address] Performed By: #### 5 7021-8 ####[facility] LABORATORYCLIA [id number] [place] [id number] [place] CNPNon 05-18-2023 CNPN Normal [facility] CONSULTon 05-18-2023 CONSULT Normal [facility] COPPER BLOODon 05-18-2023 Copper [Mass/Vol] 91 ug/dL Normal 80-155 [facility] Comment on above: Order Comment: Speci men Type: BLOOD SPECIMENOrdering Facility: [facility] Address: [address] [place] [address] Result Comment: This test was developed and its performance characteristics determined by [facility]'s Lucie JRenetta [facility] Pathology and Laboratory Medicine [place] (-PLMI). It has not been cleared or approved by the FDA. -[facility] is regulated under CLIA as qualified to perform high-complexity testing. This test is used for clinical purposes. It should not be regarded as investigational or for research. Performed By: #### C OPPER ####[facility] LABCLIA [id number] [place] [address] [address] [place] Comprehensive metabolic 2000 panelon 05-18-2023 Albumin [Mass/Vol] 4.7 g/dL Normal 3.9-4.9 [facility] Comment on above: Order Comment: Speci men Type: BLOOD SPECIMENOrdering Facility: [facility] Address: [address] [place] [address] Performed By: #### 3 040-3, 39552-9, ####[facility] LABORATORYCLIA [id number] [place] [address] [place] ALP [Catalytic activity/Vol] 76 U/L Normal 34-123 [facility] Comment on above: Order Comment: Speci men Type: BLOOD SPECIMENOrdering Facility: [facility] Address: [address] [place] [address] Performed By: #### 3 040-3, , ####[facility] LABORATORYCLIA [id number] [place] [id number] [place] ALT [Catalytic activity/Vol] 19 U/L Normal 7-38 [facility] Comment on above: Order Comment: Speci men Type: BLOOD SPECIMENOrdering Facility: [facility] Address: [address] [place] [address] Performed By: #### 3 040-3, , ####[facility] LABORATORYCLIA [id number] [place] [id number] [place] Anion gap [Moles/Vol] 14 mmol/L Normal 9-18 [facility] Comment on above: Order Comment: Speci men Type: BLOOD SPECIMENOrdering Facility: [facility] Address: [address] [place] [address] Performed By: #### 3 040-3, 01464-6, ####[facility] LABORATORYCLIA [id number] [place] [address] [place] AST [Catalytic activity/Vol] 42 U/L High 13-35 [facility] Comment on above: Order Comment: Speci men Type: BLOOD SPECIMENOrdering Facility: [facility] Address: [address] [place] [address] Performed By: #### 3 040-3, , ####OS[facility] LABORATORYCLIA [id number] [place] [id number] [place] Bilirubin [Mass/Vol] 0.4 mg/dL Normal 0.2-1.3 [facility] Comment on above: Order Comment: Speci men Type: BLOOD SPECIMENOrdering Facility: [facility] Address: [address] [place] [address] Performed By: #### 3 040-3, , ####[facility] LABORATORYCLIA [id number] [place] [id number] [place] Calcium [Mass/Vol] 9.2 mg/dL Normal 8.5-10.2 [facility] Comment on above: Order Comment: Speci men Type: BLOOD SPECIMENOrdering Facility: [facility] Address: [address] [place] [address] Performed By: #### 3 040-3, , ####OS[facility] LABORATORYCLIA [id number] [place] [id number] [place] Chloride [Moles/Vol] 106 mmol/L High 97-105 [facility] Comment on above: Order Comment: Speci men Type: BLOOD SPECIMENOrdering Facility: [facility] Address: [address] [place] [address] Performed By: #### 3 040-3, , ####OS[facility] LABORATORYCLIA [id number] [place] [id number] [place] CO2 [Moles/Vol] 21 mmol/L Low 22-30 [facility] Comment on above: Order Comment: Speci men Type: BLOOD SPECIMENOrdering Facility: [facility] Address: [address] [place] [address] Performed By: #### 3 040-3, , ####OS[facility] LABORATORYCLIA [id number] [address] [place] OF [facility] Creatinine [Mass/Vol] 0.82 mg/dL Normal 0.58-0.96 [facility] Comment on above: Order Comment: Geraldo marrero Type: BLOOD SPECIMENOrdering Facility: [facility] Address: [address] [place] [address] Performed By: #### 3 040-3, 59076-9, ####[facility] LABORATORYCLIA [id number] [place] [id number] [facility] Creatinine and Glomerular filtration rate.predicted panel (S/P/Bld) 96 mL/min/1.73m??? Normal >=60 [facility] Comment on above: Order Comment: Geraldo marrero Type: BLOOD SPECIMENOrdering Facility: [facility] Address: [address] [place] [address] Result Comment: Jessica mated Glomerular Filtration Rate [...] actual GFR. Performed By: #### 3 040-3, 29286-9, ####[facility] LABORATORYCLIA [id number] [place] [id number] [place] Glucose [Mass/Vol] 79 mg/dL Normal 74-99 [facility] Comment on above: Order Comment: Geraldo marrero Type: BLOOD SPECIMENOrdering Facility: [facility] Address: [address] [place] [address] Result Comment: The [place] Diabetes [employer] (ADA) provides guidance for cutoff [...] Standards of Medical Care in Diabetes 2016, [place] [employer]. Diabetes Care. 2016.39(Suppl 1). Performed By: #### 3 040-3, , ####OS[facility] LABORATORYCLIA [id number] [place] [address] [place] Potassium [Moles/Vol] 4.3 mmol/L Normal 3.7-5.1 [facility] Comment on above: Order Comment: Speci men Type: BLOOD SPECIMENOrdering Facility: [facility] Address: [address] [place] [address] Performed By: #### 3 040-3, , ####OS[facility] LABORATORYCLIA [id number] [place] [address] [place] Protein [Mass/Vol] 7.4 g/dL Normal 6.3-8.0 [facility] Comment on above: Order Comment: Speci men Type: BLOOD SPECIMENOrdering Facility: [facility] Address: [address] [place] [address] Performed By: #### 3 040-3, , ####OS[facility] LABORATORYCLIA [id number] [place] [address] [place] Sodium [Moles/Vol] 141 mmol/L Normal 136-144 [facility] Comment on above: Order Comment: Speci men Type: BLOOD SPECIMENOrdering Facility: [facility] Address: [address] [place] [id number] Performed By: #### 3 040-3, 49571-9, ####OSVALDO LABORATORYCLIA [id number] [place] [address] [place] Urea nitrogen [Mass/Vol] 7 mg/dL Normal 7-21 [facility] Comment on above: Order Comment: Speci men Type: BLOOD SPECIMENOrdering Facility: [facility] Address: [address] [place] [id number] Performed By: #### 3 040-3, 09498-3, 92003-2 ####[facility] LABORATORYCLIA [id number] [place] [address] [place] Copper Lvlon 05-18-2023 Copper [Mass/Vol] 90 microgram/dL Invalid Interpretation Code 80-158 [facility] Comment on above: Result Comment: This test was developed and its performance characteristicsdetermined by [facility]. It has not been cleared or approvedby the Food and Drug Administration.Detection Limit = 5Performed at: [place] [address] [place], [place] [id number] MD Jhonathan Dai Performed By: #### 9 [id number], [id number], 5206759, 5956496, [id number], 5371953, [id number], 9151251, [id number] ####[facility] [id number] [place] [address] ED PROV NOTEon 05-18-2023 ED PROV NOTE Normal [facility] Folate SerPl-mCncon 05-18-19 24 Folate [Mass/Vol] 10.3 ng/mL Normal >4.7 [facility] Comment on above: Order Comment: Speci men Type: BLOOD SPECIMENOrdering Facility: [facility] Address: [address] [place] [address] Performed By: #### 1 4338-8, 2132-9, 2284-8, 3034-6, 26439-8 ####[facility] LABCLIA [id number] [place] [address] [place] HIV Screen 4th Generation wR fxon 05-18-2023 HIV 1+2 Ab+HIV1 p24 Ag IA Ql Non-Reactive Invalid Interpretation Code Non Reactive [facility] Comment on above: Result Comment: HIV NegativeHIV-1/HIV-2 antibodies and HIV-1 p24 antigen were NOT detected.There is no laboratory evidence of HIV infection.Performed at: [place] [id number] [place], [place] [id number] PhD Cami Neri Performed By: #### 9 [id number], [id number], 5388892, 1156776, [id number], 0424901, [id number], 5453244, [id number] ####[facility] [address] [place] [id number] Iron and Iron binding capaci ty panelon 05-18-2023 Iron [Mass/Vol] 81 ug/dL Normal 41-186 [facility] Comment on above: Order Comment: Speci men Type: BLOOD SPECIMENOrdering Facility: [facility] Address: [address] [place] [address] Performed By: #### 1 4338-8, 2132-9, 2284-8, 3034-6, 59117-3 ####[facility] LABIA [id number] [place] [address] [place] Iron binding capacity [Mass/Vol] 292 ug/dL Normal 232-386 [facility] Comment on above: Order Comment: Speci men Type: BLOOD SPECIMENOrdering Facility: [facility] Address: [address] [place] [address] Performed By: #### 1 4338-8, 2132-9, 2284-8, 3034-6, 08959-1 ####[facility] LABIA [id number] [place] [address] [place] Iron/TIBC [Molar ratio] 27.7 % Normal 15.0-57.0 [facility] Comment on above: Order Comment: Speci men Type: BLOOD SPECIMENOrdering Facility: [facility] Address: [address] [place] [address] Performed By: #### 1 4338-8, 2132-9, 2284-8, 3034-6, 71795-6 ####[facility] LABIA [id number] [place] [id number] [place] Lipase SerPl-cCncon 05-18-19 24 Lipase [Catalytic activity/Vol] 37 U/L Normal 16-61 [facility] Comment on above: Order Comment: Speci men Type: BLOOD SPECIMENOrdering Facility: [facility] Address: [address] [place], [place] [address] [id number] Performed By: #### 3 040-3, 23393-7, 31302-8 ####OSVALDO LABORATORYCLIA [id number] [place] [id number] [place] Magnesium SerPl-mCncon 05-17 Magnesium [Mass/Vol] 2.1 mg/dL Normal 1.7-2.3 [facility] Comment on above: Order Comment: Speci men Type: BLOOD SPECIMENOrdering Facility: [facility] Address: [facility] [address] [place] [id number] Performed By: #### 3 040-3, 60735-2, ####OSVALDO LABORATORYCLIA [id number] [place] [id number] [place] NURSING PROGon 05-18-2023 NURSING PROG Normal [facility] Prealb SerPl-mCncon 05-18-19 Prealbumin [Mass/Vol] 13 mg/dL Low 17-36 [facility] Comment on above: Order Comment: Speci men Type: BLOOD SPECIMENOrdering Facility: [facility] Address: [facility] [place] [id number] Performed By: #### 1 4338-8, 2131-9, 2283-8, 3034-6, 07256-3 ####[facility] LABCLIA [id number] [place] [id number] [place] Transferrin SerPl-mCncon Transferrin [Mass/Vol] 239 mg/dL Normal 200-360 [facility] Comment on above: Order Comment: Speci men Type: BLOOD SPECIMENOrdering Facility: [facility] Address: [address] [place] [id number] Performed By: #### 1 4338-8, 2131-9, 4-8, 3034-6, 19943-0 ####[facility] LABCLIA [id number] [place] [id number] [place] VITAMIN B1 PLASMAon 05-18-19 24 VITAMIN B1, PLASMA 5 nmol/L Normal 4-15 [facility] Comment on above: Order Comment: Speci men Type: BLOOD SPECIMENOrdering Facility: [facility] Address: [address] [place] [address] Result Comment: INTE RPRETIVE DATA: Vitamin B1, PlasmaThiamine (vitamin B1) is reported. However, thiamine diphosphate(TDP), the biologically active form of thiamine, is not found inmeasurable concentrations in plasma, and is best determined inwhole blood specimens. Plasma thiamine concentration reflectsrecent intake rather than body stores.This test was developed and its performance characteristicsdetermined by [employer]. It has not been cleared orapproved by the [place] Food and Drug Administration. This test wasperformed in a CLIA certified laboratory and is intended forclinical purposes.Performed By: [facility] [place] [id number] Director: Kirt Murphy MD, PhDCLIA Number: [id number] Performed By: #### P VITB1 ####[facility] [id number] [place] [address] VITAMIN B6/PYRIDOXINon 05-17 VITAMIN B6 39.1 nmol/L Normal 20.0-125.0 [facility] Comment on above: Order Comment: Speci men Type: BLOOD SPECIMENOrdering Facility: [facility] Address: [address] [place] [address] Result Comment: INTE RPRETIVE INFORMATION: Vitamin B6 (Pyridoxal 5-Phosphate)Pyridoxal 5'-phosphate measured in a specimen collected followingan 8-hour or overnight fast accurately indicates vitamin X0qbgqzptkzfb status. Non-fasting specimen concentration reflectsrecent vitamin intake.This test was developed and its performance characteristicsdetermined by [employer]. It has not been cleared orapproved by the [place] Food and Drug Administration. This test wasperformed in a CLIA certified laboratory and is intended forclinical purposes.Performed By: [facility] [place] [id number] Director: Kirt Murphy MD, PhDCLIA Number: [id number] Performed By: #### V ITB6 ####[facility] [id number] [place] [address] Vit A SerPl-mCncon 4 Retinol [Mass/Vol] 0.17 mg/L Low 0.30-1.20 [facility] Comment on above: Order Comment: Geraldo marrero Type: BLOOD SPECIMENOrdering Facility: [facility] Address: [address] [place] [id number] Result Comment: This test was developed and its performance characteristics determined by [facility]'s Lucie JRenetta [facility] Pathology and Laboratory Medicine [place] (RTPLMI). It has not been cleared or approved by the FDA. [facility] is regulated under CLIA as qualified to perform high-complexity testing. This test is used for clinical purposes. It should not be regarded as investigational or for research. Performed By: #### 2 923-1 ####[facility] LABCLIA [id number] [place] [address] [place] Vit B12 SerPl-mCncon 024 Cobalamin (Vitamin B12) [Mass/Vol] 1155 pg/mL Normal 232-1245 [facility] Comment on above: Order Comment: Geraldo marrero Type: BLOOD SPECIMENOrdering Facility: [facility] Address: [address] [place] [address] Performed By: #### 1 4338-8, 2132-9, 2284-8, 3034-6, 44767-7 ####[facility] LABCLIA [id number] [place] [address] [place] ZINC, WHOLE BLOODon 05-18-19 24 ZINC, WHOLE BLOOD 670.6 ug/dL Normal 440.0-860.0 [facility] Comment on above: Order Comment: Speci [facility] Type: BLOOD SPECIMENOrdering Facility: [facility] Address: [address] [place] [address] Result Comment: INTE RPRETIVE DATA: Zinc Quantitative, [...] was developed and its performance characteristicsdetermined by [employer]. It has not been cleared orapproved by the [place] Food and Drug Administration. This test wasperformed in a CLIA certified laboratory and is intended forclinical purposes.Performed By: [facility] [id number] [place], [place] [address]Jxysgqufnn Director: Kirt Murphy MD, PhDCLIA Number: [id number] Performed By: #### Z INCWB ####[facility] [id number] [place] [address] CBC w/ Auto Diffon 4 Basophils/100 WBC (Bld) 0.7 % Normal 0.0-2.0 [facility] Comment on above: Performed By: #### 2 839562, 7258879, 6018811, 32297791 ####[facility] [address] [place] [address] Basophils/Leukocyte s Auto (Bld) [Pure # fraction] 0.0 E9/L Normal 0.0-0.2 [facility] Comment on above: Performed By: #### 2 432221, 8879336, 9995991, 84171767 ####[address] [place] [address] Eosinophils (Bld) [#/Vol] 0.1 E9/L Normal 0.0-0.5 [facility] Comment on above: Performed By: #### 2 078910, 3532479, 8383575, 19897984 ####[address] [place] [address] Eosinophils/100 WBC (Bld) 1.9 % Normal 0.0-8.0 [facility] Comment on above: Performed By: #### 2 628195, 3850481, 7982521, 73900746 ####[address] [place] [address] Erythrocyte distribution width (RBC) [Ratio] 14.1 % Normal 10.9-14.2 [facility] Comment on above: Performed By: #### 2 739319, 0715599, 7733966, 13525769 ####[address] [address] Hematocrit (Bld) [Volume fraction] 41.1 % Normal 34.0-46.0 [facility] Comment on above: Performed By: #### 2 812620, 9307691, 2494765, 30295293 ####[facility] [address] [place] [address] Hemoglobin (Bld) [Mass/Vol] 13.7 g/dL Normal 12.0-16.0 [facility] Comment on above: Performed By: #### 2 070072, 4341020, 7509208, 57927665 ####[address] [address] Lymphocytes (Bld) [#/Vol] 1.4 E9/L Normal 1.0-4.0 [facility] Comment on above: Performed By: #### 2 865165, 8632277, 6882802, 97321010 ####[address] [address] Lymphocytes/100 WBC (Bld) 38.9 % Normal 14.0-50.0 [facility] Comment on above: Performed By: #### 2 256939, 3049629, 6450527, 35311696 ####[address] [address] MCH (RBC) [Entitic mass] 29.8 pg Normal 27.0-34.0 [facility] Comment on above: Performed By: #### 2 936203, 5382260, 3212556, 70976499 ####[address] [place] [address] MCHC (RBC) [Mass/Vol] 33.3 g/dL Normal 31.4-36.0 [facility] Comment on above: Performed By: #### 2 712883, 3543061, 0776021, 17888210 ####[address] [address] MCV (RBC) [Entitic vol] 89.5 fL Normal 80.0-100.0 [facility] Comment on above: Performed By: #### 2 556838, 4800417, 8440255, 04511517 ####[address] [address] Monocytes (Bld) [#/Vol] 0.2 E9/L Normal 0.2-1.0 [facility] Comment on above: Performed By: #### 2 006123, 8361188, 8869001, 02965475 ####[address] [address] Neutrophils (Bld) [#/Vol] 1.9 E9/L Low 2.0-7.5 [facility] Comment on above: Performed By: #### 2 661006, 8838026, 2074947, 41095297 ####[address] [address] Neutrophils/100 WBC (Bld) 52.6 % Normal 36.0-75.0 [facility] Comment on above: Performed By: #### 2 781817, 2321248, 6672170, 75467017 ####[address] [address] Platelet 195.0 E9/L Normal 150.0-500.0 [facility] Comment on above: Performed By: #### 2 687328, 2942319, 1674366, 39750299 ####[address] [address] Platelet mean volume (Bld) [Entitic vol] 9.0 fL Normal 6.4-10.8 [facility] Comment on above: Performed By: #### 2 483203, 3320712, 0030136, 19397247 ####[address] [address] RBC (Bld) [#/Vol] 4.6 E12/L Normal 4.3-5.9 [facility] Comment on above: Performed By: #### 2 811032, 4540445, 9172704, 48596648 ####[facility] [address] [place] [address] WBC corrected for nucl RBC Auto (Bld) [#/Vol] 3.6 E9/L Low 4.0-11.0 [facility] Comment on above: Performed By: #### 2 520393, 9927393, 1322191, 12049124 ####[facility] [address] [place] [address] CHEMISTRYOrdered By: SYSTEM SYSTEM on 05-17-2023 Albumin [...] [Mass/Vol] 4.5 g/dL Normal 3.3-5.0 [facility] Comment on above: Performed By: #### 2 117717, 2555455, 1834344, 77376582 ####[facility] [address] [place] [address] Albumin/Globulin (S) [Mass conc ratio] 1.6 Normal 1.1-2.2 [facility] Comment on above: Performed By: #### 2 670706, 7683630, 6410754, 59518990 ####[facility] [address] [place] [address] ALP [Catalytic activity/Vol] 61 Int._Unit/L Normal 21-98 [facility] Comment on above: Performed By: #### 2 358184, 0854655, 7771289, 34019105 ####[facility] [address] [place] [address] ALT No additional P-5'-P [Catalytic activity/Vol] 17 Int._Unit/L Normal 6-46 [facility] Comment on above: Performed By: #### 2 182787, 7673025, 7790923, 32077684 ####[facility] [address] [place] [address] Anion gap [Moles/Vol] 12 mmol/L Normal 6-16 [facility] Comment on above: Performed By: #### 2 392668, 6442532, 2587086, 62646581 ####[facility] [address] [place] [address] AST [Catalytic activity/Vol] 30 Int._Unit/L Normal 5-43 [facility] Comment on above: Performed By: #### 2 237799, 6176883, 5139074, 72537111 ####[facility] [address] [place] [address] Bilirubin [Mass/Vol] 0.5 mg/dL Normal 0.0-1.1 [facility] Comment on above: Performed By: #### 2 320801, 6638217, 9808542, 40828493 ####[address] [address] Calcium [Mass/Vol] 9.2 mg/dL Normal 8.9-11.1 [facility] Comment on above: Performed By: #### 2 906104, 2770721, 9892056, 32686766 ####[facility] [address] [place] [address] Chloride [Moles/Vol] 106 mmol/L Normal 101-111 [facility] Comment on above: Performed By: #### 2 622235, 4735659, 0048206, 52691546 ####[facility] [address] [place] [address] CO2 [Moles/Vol] 24 mmol/L Normal 21-31 [facility] Comment on above: Performed By: #### 2 785996, 5698452, 2824782, 13059796 ####[facility] [address] [place] [address] Creatinine [Mass/Vol] 0.9 mg/dL Normal 0.5-1.3 [facility] Comment on above: Performed By: #### 2 617421, 9283064, 9912508, 69688485 ####[facility] [address] [place] [address] Globulin (S) [Mass/Vol] 2.9 g/dL Normal 1.4-4.0 [facility] Comment on above: Performed By: #### 2 430649, 0694269, 3757784, 86566695 ####[facility] [address] [place] [address] Glucose [Mass/Vol] 80 mg/dL Normal 55-199 [facility] Comment on above: Performed By: #### 2 975791, 7031205, 3197762, 56879317 ####[facility] [address] [place] [address] Potassium [Moles/Vol] 3.8 mmol/L Normal 3.5-5.3 [facility] Comment on above: Performed By: #### 2 131063, 5437478, 3416959, 51997477 ####[facility] [address] [place] [address] Protein [Mass/Vol] 7.4 g/dL Normal 6.0-7.8 [facility] Comment on above: Performed By: #### 2 075773, 3796707, 5230714, 27152086 ####[facility] [address] [place] [address] Sodium [Moles/Vol] 138 mmol/L Normal 135-145 [facility] Comment on above: Performed By: #### 2 011495, 9855719, 5384359, 66601827 ####[facility] [address] [place] [address] Urea nitrogen [Mass/Vol] 6 mg/dL Normal 5-21 [facility] Comment on above: Performed By: #### 2 160795, 5269862, 5839740, 74569085 ####[facility] [address] [place] [address] Urea nitrogen/Creatinine [Mass ratio] 7 No Units Low 10-20 [facility] Comment on above: Performed By: #### 2 715799, 1387536, 4412304, 87204652 ####[facility] [address] [place] [address] Consent for Treatmenton Consent for Treatment [id number]#1.00TIFF Normal [facility] Discharge Instructionson Discharge Instructions [id number] 524#1.00TIFF Normal [facility] ED Clinical Summaryon 2023 ED Clinical Summary Normal [facility] ED Note-Physicianon 05-17-19 ED Note-Physician Normal [facility] Comment on above: Result Comment: Elec tronically Signed By: Tiffani Cunningham PA-C\.br\Date and Time Signed: 05/17/23 15:46 EDT\.br\Electronically Co-Signed By: Ashutosh Albright M.D.\.br\Date and Time Co-Signed: 05/17/23 17:49 EDT ED Patient Education Noteon 05-17-2023 ED Patient Education Note Normal [facility] ED Patient Summaryon 024 ED Patient Summary Normal [facility] HEMATOLOGYOrdered By: SYSTEM SYSTEM on 05-17-2023 [...] [Mass/Vol] 2.1 mg/dL Normal 1.3-2.4 [facility] Comment on above: Performed By: #### 2 578804, 0915892, 1671826, 89927283 ####[facility] [address] [place] [address] Population Healthon 05-17-19 24 Population Health Normal [facility] Pre-Arrival Noteon 04-01-202 4 Pre-Arrival Note Normal [facility] eGFRon 05-17-2023 eGFR 86 mL/min/1.73 m2 Normal >=59 [facility] Comment on above: Order Comment: Order added by Discern Expert. Performed By: #### 2 575902, 8340292, 8469789, 75403128 ####[facility] [address] [place] [address] BMPon 05-14-2023 Anion gap [Moles/Vol] 8 mmol/L Normal 6-16 [facility] Comment on above: Performed By: #### 9 65268769, 04556775, 0965899, 5205396, 6184464978, 8143035, 3881539954, 7575646, 67529805 ####[facility] [address] [place] [address] Calcium [Mass/Vol] 8.6 mg/dL Low 8.9-11.1 [facility] Comment on above: Performed By: #### 9 04605672, 90138936, 5610831, 9944034, 7077014616, 6302964, 8570517393, 9316316, 18318300 ####[facility] [address] [place] [address] Chloride [Moles/Vol] 110 mmol/L Normal 101-111 [facility] Comment on above: Performed By: #### 9 95664328, 07034170, 7825699, 7688706, 1336566453, 0054170, 7679379274, 4988955, 21809661 ####[facility] [address] [place] [address] CO2 [Moles/Vol] 26 mmol/L Normal 21-31 [facility] Comment on above: Performed By: #### 9 43157691, 63768740, 9007813, 4281993, 6682146198, 7417411, 6300725538, 8368501, 71985065 ####[facility] [address] [place] [address] Creatinine [Mass/Vol] 0.9 mg/dL Normal 0.5-1.3 [facility] Comment on above: Performed By: #### 9 57922900, 87826544, 9603614, 1366249, 2137084587, 8393493, 7726184035, 4507760, 85377435 ####[facility] [address] [place] [address] Glucose [Mass/Vol] 96 mg/dL Normal 55-199 [facility] Comment on above: Performed By: #### 9 38497816, 77179860, 5653667, 6436298, 9836656659, 1264970, 7411814442, 4476812, 69787550 ####[facility] [address] [place] [address] Potassium [Moles/Vol] 4.0 mmol/L Normal 3.5-5.3 [facility] Comment on above: Performed By: #### 9 90372266, 94188073, 7231953, 9838249, 4915975538, 2354794, 4035558633, 8307256, 85062994 ####[facility] [address] [place] [address] Sodium [Moles/Vol] 140 mmol/L Normal 135-145 [facility] Comment on above: Performed By: #### 9 54760187, 71465485, 4750048, 2003917, 0985679024, 6186748, 0509232997, 4836612, 80047141 ####[facility] [address] [place] [address] Urea nitrogen [Mass/Vol] 5 mg/dL Normal 5-21 [facility] Comment on above: Performed By: #### 9 02585072, 16501677, 4193596, 5730386, 3389009945, 8125012, 7375367434, 0596181, 22830231 ####[facility] [address] [place] [address] Urea nitrogen/Creatinine [Mass ratio] 6 No Units Low 10-20 [facility] Comment on above: Performed By: #### 9 36528623, 46731499, 6693131, 1158815, 7178188155, 6453606, 4031777074, 5458849, 85975102 ####[address] [place] [address] CBC w/ Auto Diffon 4 Basophils/100 WBC (Bld) 1.4 % Normal 0.0-2.0 [facility] Comment on above: Performed By: #### 9 08784048, 35917011, 3133380, 0933533, 4497673377, 4650367, 4714778651, 3165825, 03712799 ####[address] [address] Basophils/Leukocyte s Auto (Bld) [Pure # fraction] 0.0 E9/L Normal 0.0-0.2 [facility] Comment on above: Performed By: #### 9 67374254, 83261559, 8544634, 8816995, 9238854883, 7020176, 9398165917, 1196777, 14734448 ####[address] [address] Eosinophils (Bld) [#/Vol] 0.1 E9/L Normal 0.0-0.5 [facility] Comment on above: Performed By: #### 9 92924474, 91691963, 0355741, 3949827, 9527316880, 5263559, 4278810589, 9426602, 72708896 ####[address] [address] Eosinophils/100 WBC (Bld) 6.1 % Normal 0.0-8.0 [facility] Comment on above: Performed By: #### 9 07271571, 61912182, 5613997, 6755351, 7785633122, 1884518, 5547322369, 3743997, 77579691 ####[address] [address] Erythrocyte distribution width (RBC) [Ratio] 14.4 % High 10.9-14.2 [facility] Comment on above: Performed By: #### 9 94697565, 10893673, 7580600, 8972470, 2039269339, 6268634, 9137671143, 8162890, 87350576 ####[address] [place] [address] Hematocrit (Bld) [Volume fraction] 36.1 % Normal 34.0-46.0 [facility] Comment on above: Performed By: #### 9 37009761, 72400140, 1318585, 3799598, 6529518410, 4696734, 9579664921, 4358946, 30421182 ####[address] [place] [address] Hemoglobin (Bld) [Mass/Vol] 12.2 g/dL Normal 12.0-16.0 [facility] Comment on above: Performed By: #### 9 21681838, 25071515, 1641441, 9940736, 5049504126, 6123073, 9037392421, 6015451, 44387589 ####[address] [address] Lymphocytes (Bld) [#/Vol] 1.1 E9/L Normal 1.0-4.0 [facility] Comment on above: Performed By: #### 9 41642091, 96151467, 0236161, 2587990, 7196537702, 6835445, 8628042154, 9847494, 67376186 ####[address] [address] Lymphocytes/100 WBC (Bld) 51.0 % High 14.0-50.0 [facility] Comment on above: Performed By: #### 9 78243446, 93581683, 2842454, 0404986, 5916637547, 7916811, 1814350109, 8181234, 73512674 ####[address] [address] MCH (RBC) [Entitic mass] 30.3 pg Normal 27.0-34.0 [facility] Comment on above: Performed By: #### 9 74495524, 14563161, 0419548, 3386659, 4258074727, 9872604, 0055064591, 2829288, 45075706 ####[address] MCHC (RBC) [Mass/Vol] 33.9 g/dL Normal 31.4-36.0 [facility] Comment on above: Performed By: #### 9 17233294, 33638783, 0737202, 4139878, 8743192929, 7002680, 2165425345, 5398662, 20105817 ####[address] MCV (RBC) [Entitic vol] 89.3 fL Normal 80.0-100.0 [facility] Comment on above: Performed By: #### 9 41530825, 60024062, 2569726, 7436568, 7210967261, 4892167, 8243248434, 6503040, 10677653 ####[address] Monocytes (Bld) [#/Vol] 0.1 E9/L Low 0.2-1.0 [facility] Comment on above: Performed By: #### 9 94871963, 21767984, 1077930, 2046124, 1818262474, 5304484, 9848312199, 6424467, 57209399 ####[address] Neutrophils (Bld) [#/Vol] 0.8 E9/L Low 2.0-7.5 [facility] Comment on above: Performed By: #### 9 04011341, 32018728, 0165059, 2000495, 7002170927, 4778447, 3521176005, 6599248, 53272252 ####[address] [address] Neutrophils/100 WBC (Bld) 36.8 % Normal 36.0-75.0 [facility] Comment on above: Performed By: #### 9 76536622, 02581166, 0504438, 6482806, 2722654183, 7196229, 1629387415, 0418541, 88322601 ####[facility] [address] [place] [address] Platelet mean volume (Bld) [Entitic vol] 9.3 fL Normal 6.4-10.8 [facility] Comment on above: Performed By: #### 9 03687317, 49151067, 5476840, 9366545, 1838047611, 2355755, 3889410139, 1814040, 13446362 ####[address] [place] [address] Platelets (Bld) [#/Vol] 167.0 E9/L Normal 150.0-500.0 [facility] Comment on above: Performed By: #### 9 40134838, 43423319, 7339589, 4781090, 3998579360, 3665641, 4838569140, 1379019, 31918304 ####[facility] [address] [place] [address] RBC (Bld) [#/Vol] 4.0 E12/L Low 4.3-5.9 [facility] Comment on above: Performed By: #### 9 19120914, 89616172, 5568244, 4316128, 2800758942, 8739618, 1142119878, 4391004, 29783297 ####[address] [place] [address] WBC corrected for nucl RBC Auto (Bld) [#/Vol] 2.1 E9/L Low 4.0-11.0 [facility] Comment on above: Result Comment: Resu lts consistant with previous path review on 05/13/23, reviewed by KVNG Performed By: #### 9 95762276, 98326051, 2696259, 6387965, 1926322539, 3143649, 7472709156, 0083088, 93458781 ####[address] [place] [address] CHEMISTRYOrdered By: SYSTEM SYSTEM on 05-14-2023 Anion [...] Noteon 05-14-19 Consultation Note Normal [facility] Comment on above: Result Comment: Elec tronically Signed By: Miguel JOHNSON, Jon Smith\.br\Date and Time Signed: 05/14/23 11:54 EDT Discharge Note-Nursingon Discharge Note-Nursing Invalid Interpretation Code [address] [place] [address]- \.br\ Wednesday 9:45 AM EDT \.br\ With: Nasim JOHNSON, Rajni Ballesteros\.br\ Where: [facility] Folateon 05-14-2023 Folate [Mass/Vol] 10.1 ng/mL Normal >=6.7 [facility] Comment on above: Performed By: #### 9 79413632, 00398963, 5434656, 9451962, 3855801204, 1036958, 9804892804, 3940402, 71635455 ####[facility] [address] [place] [address] HEMATOLOGYOrdered By: SYSTEM SYSTEM on 05-14-2023 Basophils/100 [...] previous path review on 05/13/23, reviewed by [id number] Inpatient Clinical Summaryon 05-14-2023 Inpatient Clinical Summary Normal [facility] Inpatient Patient Summaryon 05-14-2023 Inpatient Patient Summary Normal [facility] Interdisciplinary Note - Taz e Manageron 05-14-2023 Interdisciplinary Note - Director Child Normal [facility] Comment on above: Result Comment: Elec tronically Signed By: Kera Diehl\.br\Date and Time Signed: 05/14/23 10:23 EDT IntraOperative Documentson 0 05-14-2023 IntraOperative Documents [id number] Normal [facility] Progress Note-Physicianon Progress Note-Physician Normal [facility] Comment on above: Result Comment: Elec tronically Signed By: Moncho Trejo DO\Date and Time Signed: 05/14/23 10:14 EDT Progress Note-Physician Normal [facility] Comment on above: Result Comment: Elec tronically Signed By: Kuldip Arcos Jr, DObr\Date and Time Signed: 05/14/23 07:41 EDT Progress Note-Physician Normal [facility] Comment on above: Result Comment: Elec tronically Signed By: Kuldip Arcos Jr, DO\Date and Time Signed: 05/14/23 07:41 EDT Vit B12on 05-14-2023 Cobalamin (Vitamin B12) [Mass/Vol] 791 pg/mL Normal 50-1500 [facility] Comment on above: Performed By: #### 9 14416150, 66212051, 7153625, 8703069, 9705831749, 7340007, 0999713472, 7334269, 80001145 ####[address] [place] [address] eGFRon 05-14-2023 eGFR 86 mL/min/1.73 m2 Normal >=59 [facility] Comment on above: Order Comment: Order added by Discern Expert. Performed By: #### 9 30418697, 93271264, 8905149, 5753988, 0341870015, 7537966, 6594959133, 8892516, 92373866 ####[address] [place] [address] CBC w/ Auto Diffon 4 Basophils/100 WBC (Bld) 1.2 % Normal 0.0-2.0 [facility] Comment on above: Performed By: #### 2 775414, 1471428, 29112071, 72240126 ####[address] [address] Basophils/Leukocyte s Auto (Bld) [Pure # fraction] 0.0 E9/L Normal 0.0-0.2 [facility] Comment on above: Performed By: #### 2 032882, 7303927, 33553732, 10617762 ####[address] [place] [address] Eosinophils (Bld) [#/Vol] 0.1 E9/L Normal 0.0-0.5 [facility] Comment on above: Performed By: #### 2 623299, 3962443, 61294079, 01056760 ####[address] [place] [address] Eosinophils/100 WBC (Bld) 4.7 % Normal 0.0-8.0 [facility] Comment on above: Performed By: #### 2 650028, 0941023, 39710857, 21800915 ####[address] [place] [address] Erythrocyte distribution width (RBC) [Ratio] 14.3 % High 10.9-14.2 [facility] Comment on above: Performed By: #### 2 421196, 7936878, 86274484, 32095698 ####[address] [address] Hematocrit (Bld) [Volume fraction] 37.1 % Normal 34.0-46.0 [facility] Comment on above: Performed By: #### 2 014934, 4376726, 21511151, 95009905 ####[address] [address] Hemoglobin (Bld) [Mass/Vol] 12.5 g/dL Normal 12.0-16.0 [facility] Comment on above: Performed By: #### 2 121433, 8725880, 81170441, 26662319 ####[address] [address] Lymphocytes (Bld) [#/Vol] 1.1 E9/L Normal 1.0-4.0 [facility] Comment on above: Performed By: #### 2 319035, 6942119, 42717502, 45599003 ####[address] [address] Lymphocytes/100 WBC (Bld) 53.2 % High 14.0-50.0 [facility] Comment on above: Performed By: #### 2 691441, 6817950, 20977831, 35435732 ####[address] [place] [address] MCH (RBC) [Entitic mass] 30.1 pg Normal 27.0-34.0 [facility] Comment on above: Performed By: #### 2 118184, 8327100, 30207851, 80530835 ####[address] [address] MCHC (RBC) [Mass/Vol] 33.6 g/dL Normal 31.4-36.0 [facility] Comment on above: Performed By: #### 2 367330, 8208050, 33604888, 13665507 ####[address] MCV (RBC) [Entitic vol] 89.4 fL Normal 80.0-100.0 [facility] Comment on above: Performed By: #### 2 698417, 2660429, 38619478, 17697997 ####[place] [id number] Monocytes (Bld) [#/Vol] 0.1 E9/L Low 0.2-1.0 [facility] Comment on above: Performed By: #### 2 432691, 9114044, 46315675, 00061212 ####[address] [address] Neutrophils (Bld) [#/Vol] 0.7 E9/L Low 2.0-7.5 [facility] Comment on above: Performed By: #### 2 645422, 6157600, 23273365, 23841632 ####[address] [address] Neutrophils/100 WBC (Bld) 34.6 % Low 36.0-75.0 [facility] Comment on above: Performed By: #### 2 027313, 6959076, 81365047, 78582046 ####[address] [address] Platelet 168.0 E9/L Normal 150.0-500.0 [facility] Comment on above: Performed By: #### 2 016224, 9151851, 38539715, 23128451 ####[address] [address] Platelet mean volume (Bld) [Entitic vol] 9.1 fL Normal 6.4-10.8 [facility] Comment on above: Performed By: #### 2 411875, 1370053, 32221466, 89520529 ####[facility] [address] [place] [address] RBC (Bld) [#/Vol] 4.1 E12/L Low 4.3-5.9 [facility] Comment on above: Performed By: #### 2 237902, 6343226, 64444888, 43408923 ####[facility] [address] [place] [address] WBC corrected for nucl RBC Auto (Bld) [#/Vol] 2.0 E9/L Abnormal 4.0-11.0 [facility] Comment on above: Result Comment: Resu lts called to JACKSON MARROQUIN by and read back on 05/13/2023 07:20:49.Critical Result Verified by Repeat AnalysisSlide review performed Performed By: #### 2 462420, 8052238, 33339406, 72452560 ####[facility] [address] [place] [address] CHEMISTRYOrdered By: SYSTEM SYSTEM on 05-13-2023 Albumin [...] [Mass/Vol] 3.9 g/dL Normal 3.3-5.0 [facility] Comment on above: Performed By: #### 2 381717, 2013315, 01951465, 89877090 ####[facility] [address] [place] [address] Albumin/Globulin (S) [Mass conc ratio] 1.6 Normal 1.1-2.2 [facility] Comment on above: Performed By: #### 2 578149, 3075405, 52615650, 25707441 ####[facility] [address] [place] [address] ALP [Catalytic activity/Vol] 49 Int._Unit/L Normal 21-98 [facility] Comment on above: Performed By: #### 2 713598, 7639127, 59138888, 91315564 ####[facility] [address] [place] [address] ALT No additional P-5'-P [Catalytic activity/Vol] 12 Int._Unit/L Normal 6-46 [facility] Comment on above: Performed By: #### 2 826905, 6581942, 89070180, 26423723 ####[facility] [address] [place] [address] Anion gap [Moles/Vol] 9 mmol/L Normal 6-16 [facility] Comment on above: Performed By: #### 2 241536, 8454513, 79781964, 37594662 ####[facility] [address] [place] [address] AST [Catalytic activity/Vol] 23 Int._Unit/L Normal 5-43 [facility] Comment on above: Performed By: #### 2 290978, 8228983, 68432266, 46781171 ####[facility] [address]aim[address] [place] [address] Bilirubin [Mass/Vol] 0.4 mg/dL Normal 0.0-1.1 [facility] Comment on above: Performed By: #### 2 314414, 9467463, 33028982, 82445079 ####[facility] [address]Normaim[address] [place] [address] Calcium [Mass/Vol] 8.4 mg/dL Low 8.9-11.1 [facility] Comment on above: Performed By: #### 2 215714, 4529065, 67802227, 50867525 ####[facility] [address] [place] [address] Chloride [Moles/Vol] 111 mmol/L Normal 101-111 [facility] Comment on above: Performed By: #### 2 981660, 9356647, 66866669, 77798376 ####[facility] [address] Ave[address]aim[address] [address] CO2 [Moles/Vol] 24 mmol/L Normal 21-31 [facility] Comment on above: Performed By: #### 2 694607, 6257135, 75778515, 72228117 ####[facility] [address] [place] [address] Creatinine [Mass/Vol] 0.7 mg/dL Normal 0.5-1.3 [facility] Comment on above: Performed By: #### 2 498918, 7187219, 31799135, 63082162 ####[facility] [address] [place] [address] Globulin (S) [Mass/Vol] 2.5 g/dL Normal 1.4-4.0 [facility] Comment on above: Performed By: #### 2 525289, 0578796, 05616681, 72413299 ####[facility] [address] [place] [address] Glucose [Mass/Vol] 84 mg/dL Normal 55-199 [facility] Comment on above: Performed By: #### 2 104407, 0331975, 52817773, 03173911 ####[facility] [address] [place] [address] Potassium [Moles/Vol] 3.7 mmol/L Normal 3.5-5.3 [facility] Comment on above: Performed By: #### 2 643203, 9231716, 86039172, 59593914 ####[facility] [address] [place] [address] Protein [Mass/Vol] 6.4 g/dL Normal 6.0-7.8 [facility] Comment on above: Performed By: #### 2 135555, 5579142, 26063029, 33315340 ####[facility] [address] [place] [address] Sodium [Moles/Vol] 140 mmol/L Normal 135-145 [facility] Comment on above: Performed By: #### 2 931188, 1414815, 14104583, 27327266 ####[facility] [address] [place] [address] Urea nitrogen [Mass/Vol] 7 mg/dL Normal 5-21 [facility] Comment on above: Performed By: #### 2 132446, 1314006, 48790293, 36200849 ####[facility] [address] [place] [address] Urea nitrogen/Creatinine [Mass ratio] 10 No Units Normal 10-20 [facility] Comment on above: Performed By: #### 2 396104, 9752802, 25151019, 22777808 ####[facility] [address] [place] [address] Consenton 05-13-2023 Consent [id number]#1.00TIFF Normal [facility] Consultation Noteon 05-13-19 24 Consultation Note Normal [facility] Comment on above: Result Comment: Elec [...] reticulocytes. Leukocytopenia with reactive lymphocytes and monocytes.CPT 92438 Invalid Interpretation Code [facility] HemeManSS Interdisciplinary Note - Taz e Manageron 05-13-2023 Interdisciplinary Note - Director Child [facility] Comment on above: Result Comment: Elec tronically Signed By: Kera Diehl\.br\Date and Time Signed: 05/13/23 13:46 EDT Main OR Intraoperative Recor don 05-13-2023 Main OR Intraoperative Record Normal [facility] Oncology Progress Noteon Oncology Progress Note Normal [facility] Path. Reviewon 05-13-2023 Path Review Anemia with no increase of reticulocytes. Leukocytopenia with reactive lymphocytes and monocytes. Invalid Interpretation Code [facility] Comment on above: Order Comment: Order added by Discern Expert Performed By: #### 2 624468, 2828530, 10960880, 97503665 ####[facility] [address] [place] [address] Progress Note-Physicianon Progress Note-Physician Normal [facility] Comment on above: Result Comment: Elec tronically Signed By: Neil VALENZUELA, Moncho Wynne.br\Date and Time Signed: 05/13/23 10:43 EDT eGFRon 05-13-2023 eGFR 116 mL/min/1.73 m2 Normal >=59 [facility] Comment on above: Order Comment: Order added by Discern Expert. Performed By: #### 2 427830, 2085141, 46404367, 04561826 ####[facility] [address] [place] [address] B hCG Qualon 05-12-2023 Beta HCG ( test) Ql Negative Normal [facility] Comment on above: Performed By: #### 1 3626396, 3579795, 02599918, 7293246, 3693131, 94224118, 57169312, 7689158 ####[facility] [address] [place] [address] BMPOrdered By: SYSTEM SYSTEM on 05-12-2023 Anion gap [Moles/Vol] 11 mmol/L Normal 6-16 [facility] Comment on above: Performed By: #### 1 5020899, 9173755, 01980751, 3458350, 1074316, 81245956, 68749345, 5428138 ####[facility] [address] [place] [address] Calcium [Mass/Vol] 9.0 mg/dL Normal 8.9-11.1 [facility] Comment on above: Performed By: #### 1 2077314, 1743484, 25347081, 1404181, 2824892, 42904226, 74828336, 1653075 ####[place] [address] [place] [address] Chloride [Moles/Vol] 105 mmol/L Normal 101-111 [facility] Comment on above: Performed By: #### 1 7241688, 4641682, 48486050, 3059391, 6845049, 31002571, 24733047, 7654873 ####[address] [address] CO2 [Moles/Vol] 25 mmol/L Normal 21-31 [facility] Comment on above: Performed By: #### 1 4749589, 2328188, 88073400, 8535410, 8292250, 48434910, 62332408, 8449763 ####[address] [address] Creatinine [Mass/Vol] 1.0 mg/dL Normal 0.5-1.3 [facility] Comment on above: Performed By: #### 1 5429355, 4198321, 94133210, 5616551, 8084637, 24435063, 06286025, 7757078 ####[address] [address] Glucose [Mass/Vol] 94 mg/dL Normal 55-199 [facility] Comment on above: Performed By: #### 1 1300341, 3545948, 94604108, 4929890, 9223290, 87919771, 67414504, 7496274 ####[address] [address] Potassium [Moles/Vol] 3.9 mmol/L Normal 3.5-5.3 [facility] Comment on above: Performed By: #### 1 0557206, 5639844, 60736174, 5578278, 0520739, 27285595, 82670866, 0248423 ####[facility] [address] [place] [address] Sodium [Moles/Vol] 137 mmol/L Normal 135-145 [facility] Comment on above: Performed By: #### 1 7685599, 5730438, 62185244, 7276435, 4615834, 86815025, 31370343, 3171371 ####[place] [address] [place] [address] Urea nitrogen [Mass/Vol] 10 mg/dL Normal 5-21 [facility] Comment on above: Performed By: #### 1 0919028, 9787874, 85134727, 6664736, 2455497, 20435540, 75792621, 7827913 ####[address] [address] BMPon 05-12-2023 Urea nitrogen/Creatinine [Mass ratio] 10 No Units Normal 10-20 [facility] Comment on above: Performed By: #### 1 2939170, 0320612, 64873787, 6098221, 5193013, 40839715, 98958891, 9755049 ####[address] [address] CBC w/ Auto DiffOrdered By: SYSTEM SYSTEM on 05-12-2023 Basophils/100 WBC (Bld) 0.9 % Normal 0.0-2.0 [facility] Comment on above: Performed By: #### 1 2493671, 6245737, 51302581, 3061111, 7026243, 15540718, 00371243, 6581099 ####[place] [address] [place] [address] Basophils/Leukocyte s Auto (Bld) [Pure # fraction] 0.0 E9/L Normal 0.0-0.2 [facility] Comment on above: Performed By: #### 1 4577009, 6527626, 37039388, 2722609, 5944949, 05704009, 59450160, 1700373 ####[address] [address] Eosinophils (Bld) [#/Vol] 0.1 E9/L Normal 0.0-0.5 [facility] Comment on above: Performed By: #### 1 7193528, 2154494, 92410627, 2014577, 7240741, 09347496, 01156405, 4825385 ####[place] [address] [place] 5467457 Eosinophils/100 WBC (Bld) 2.3 % Normal 0.0-8.0 [facility] Comment on above: Performed By: #### 1 0552193, 9598632, 59857937, 3628182, 8799509, 24661980, 96722811, 8289202 ####[place] [address] Erythrocyte distribution width (RBC) [Ratio] 14.3 % High 10.9-14.2 [facility] Comment on above: Performed By: #### 1 2705341, 2847403, 05329646, 4250568, 4577789, 36123453, 17587889, 1248126 ####[place] 1710357 Hematocrit (Bld) [Volume fraction] 39.8 % Normal 34.0-46.0 [facility] Comment on above: Performed By: #### 1 6940625, 8710052, 78506461, 0130487, 5956353, 51589981, 71796801, 3663644 ####[place] [address]10357 Hemoglobin (Bld) [Mass/Vol] 13.5 g/dL Normal 12.0-16.0 [facility] Comment on above: Performed By: #### 1 0627097, 9894084, 61332392, 8883498, 3094638, 94435440, 02348496, 5540200 ####[place] 1710357 Lymphocytes (Bld) [#/Vol] 1.3 E9/L Normal 1.0-4.0 [facility] Comment on above: Performed By: #### 1 5474942, 4326454, 31952786, 3580629, 7753291, 80843082, 23033619, 2200817 ####[address] [address] Lymphocytes/100 WBC (Bld) 46.0 % Normal 14.0-50.0 [facility] Comment on above: Performed By: #### 1 8900824, 7067559, 75574429, 1120309, 3053738, 97841055, 91601263, 4880054 ####[address] [address] MCH (RBC) [Entitic mass] 30.2 pg Normal 27.0-34.0 [facility] Comment on above: Performed By: #### 1 2290636, 5536818, 82283563, 8866864, 8837851, 72041221, 16150655, 4445897 ####[address] [address] MCHC (RBC) [Mass/Vol] 34.0 g/dL Normal 31.4-36.0 [facility] Comment on above: Performed By: #### 1 3699389, 0700534, 39981893, 0697569, 0056075, 66084601, 95855628, 4114816 ####[address] [address] MCV (RBC) [Entitic vol] 88.8 fL Normal 80.0-100.0 [facility] Comment on above: Performed By: #### 1 4762615, 4536554, 74808153, 5056271, 9719830, 68241095, 24358626, 4680865 ####[address] [address] Monocytes (Bld) [#/Vol] 0.2 E9/L Normal 0.2-1.0 [facility] Comment on above: Performed By: #### 1 0052046, 6911650, 52994600, 1878500, 9449005, 47748402, 90999255, 6060969 ####[place] [address] [address] Neutrophils (Bld) [#/Vol] 1.2 E9/L Low 2.0-7.5 [facility] Comment on above: Performed By: #### 1 1677401, 0338358, 17056870, 3406241, 1245252, 89655746, 28845651, 9298479 ####[place] [address] [address] Neutrophils/100 WBC (Bld) 42.5 % Normal 36.0-75.0 [facility] Comment on above: Performed By: #### 1 9342555, 6393390, 70982705, 8796239, 1065757, 74676281, 03994346, 0561851 ####[place] [address] [address] Platelet mean volume (Bld) [Entitic vol] 9.0 fL Normal 6.4-10.8 [facility] Comment on above: Performed By: #### 1 4212078, 1963731, 69486258, 6158754, 9298969, 88796424, 16690422, 0071127 ####[place] [address] [address] Platelets (Bld) [#/Vol] 179.0 E9/L Normal 150.0-500.0 [facility] Comment on above: Performed By: #### 1 8363809, 5488352, 84537692, 2300369, 6415504, 19277188, 22134559, 4642355 ####[address] [address] RBC (Bld) [#/Vol] 4.5 E12/L Normal 4.3-5.9 [facility] Comment on above: Performed By: #### 1 3131342, 6043596, 42016681, 8594430, 7136317, 82142472, 65103961, 0661484 ####[place] [facility] [place] [address] WBC corrected for nucl RBC Auto (Bld) [#/Vol] 2.8 E9/L Low 4.0-11.0 [facility] Comment on above: Performed By: #### 1 2916959, 1301154, 48681117, 0102224, 7828394, 60504122, 08339619, 3600841 ####[place] [facility] [address] [place] [address] CHEMISTRYOrdered By: SYSTEM SYSTEM on 05-12-2023 Albumin/Globulin [...] Sensitivity Troponin I Instructions For Use, Alan Kneeland, September 2017) Urea nitrogen/Creatinine [Mass ratio] 10 mg/mg Normal 10 - 20 [facility] COAGULATIONOrdered By: Shannon Chappell on 05-12-2023 aPTT Coag (PPP) [Time] 34.7 s Normal 25.1 - 36.5 second(s) [facility] Auto Coag Comment on above: Interpretive Data: [...] the same coagulation reagent and instrumentation as [facility]. Currently there are no coagulation studies available worldwide for children to 14 days, and no normal ranges. Heparin therapeutic range (represented by Anti-Factor Xa activity of 0.2 - 0.4 U/mL) corresponds to PTT of 56.6 - 109.0 sec. PT Coag (PPP) [Time] 13.1 s High 9.4 - 12.5 second(s) [facility] Auto Coag Comment on above: Interpretive Data: [...] the same coagulation reagent and instrumentation as [facility]. Currently there are no coagulation studies available worldwide for children to 14 days, and no normal ranges. Consent for Treatmenton 04-16 Consent for Treatment [id number] 68#1.00TIFF Normal [facility] Consultation Noteon 05-12-19 Consultation Note Normal [facility] Comment on above: Result Comment: Elec tronically Signed By: Miguel JOHNSON, Jon Smith\.br\Date and Time Signed: 05/12/23 15:42 EDT ED Clinical Summaryon 2023 ED [facility]-Phys[facility]on 05-12-19 ED Note-Physician Normal [facility] Comment on above: Result Comment: Elec tronically Signed By: Rene QUIROZ, Mauricio Harmon\.br\Date and Time Signed: 05/12/23 12:06 EDT\.br\Electronically Co-Signed By: Mateusz Garcia DO\.br\Date and Time Co-Signed: 05/12/23 12:48 EDT ED Patient Education Noteon 05-12-2023 ED Patient Education Note Normal [facility] ED Patient Summaryon 024 ED Patient Summary Normal [facility] Endoscopic Procedure Report - Otheron 05-12-2023 Endoscopic Procedure Report - Other Normal [facility] Comment on above: Result Comment: Elec tronically Signed By: Jon Rivera MD\.br\Date and Time Signed: 05/12/23 15:48 EDT Other Comment: Ramya jordan Attachment - attachment storage system not supported [id number] Can be viewed in source systemMissing Attachment - attachment storage system not supported [id number] Can be viewed in source systemMissing Attachment - attachment storage system not supported [id number] Can be viewed in source systemMissing Attachment - attachment storage system not supported [id number] Can be viewed in source systemMissing Attachment - attachment storage system not supported [id number] Can be viewed in source systemMissing Attachment - attachment storage system not supported [id number] Can be viewed in source systemMissing Attachment - attachment storage system not supported [id number] Can be viewed in source systemMissing Attachment - attachment storage system not supported [id number] Can be viewed in source systemMissing Attachment - attachment storage system not supported 7383947 Can be viewed in source system HEMATOLOGYOrdered By: SYSTEM SYSTEM on 05-12-2023 Monocytes/100 WBC (Bld) 8.3 % Normal 4.0 - 14.0 % [facility] Hep Func PanelOrdered By: SY STEM SYSTEM on 05-12-2023 Albumin [Mass/Vol] 4.3 g/dL Normal 3.3-5.0 [facility] Comment on above: Performed By: #### 1 6406227, 7898417, 58646457, 4573794, 5205547, 71149567, 94865202, 1574926 ####[place] [address] [place] [address] Bilirubin [Mass/Vol] 0.4 mg/dL Normal 0.0-1.1 [facility] Comment on above: Performed By: #### 1 5484509, 0602702, 48724439, 5422944, 6155263, 28151453, 13927100, 3550923 ####[place] [address] [place] [address] Bilirubin.direct [Mass/Vol] 0.1 mg/dL Normal 0.0-0.4 [facility] Comment on above: Performed By: #### 1 1066861, 6539560, 87219884, 5833357, 0241055, 30223740, 11270950, 3647687 ####[address] [address] Bilirubin.indirect [Mass or moles/Vol] 0.3 mg/dL Normal 0.1-0.9 [facility] Comment on above: Performed By: #### 1 4899095, 1460474, 97169277, 1733355, 4101410, 26605704, 25951211, 0690479 ####[address] [address] Globulin (S) [Mass/Vol] 2.3 g/dL Normal 1.4-4.0 [facility] Comment on above: Performed By: #### 1 8665061, 9352791, 22286239, 6753740, 6291118, 44733323, 00624535, 3501342 ####[address] [address] Protein [Mass/Vol] 6.6 g/dL Normal 6.0-7.8 [facility] Comment on above: Performed By: #### 1 5776161, 4851386, 39380307, 2494062, 7118968, 33960060, 35334759, 6565271 ####[address] [address] Hep Func Panelon 05-12-2023 Albumin/Globulin (S) [Mass conc ratio] 1.9 Normal 1.1-2.2 [facility] Comment on above: Performed By: #### 1 5247900, 6312281, 29794966, 2159696, 1500666, 55416802, 77332284, 2775361 ####[facility] [address] [place] [address] ALP [Catalytic activity/Vol] 58 Int._Unit/L Normal 21-98 [facility] Comment on above: Performed By: #### 1 6292877, 1632386, 46669571, 2240852, 5424007, 80084088, 83993452, 1648509 ####[facility] [address] [place] [address] ALT No additional P-5'-P [Catalytic activity/Vol] 14 Int._Unit/L Normal 6-46 [facility] Comment on above: Performed By: #### 1 8385166, 7761339, 80005055, 5332654, 9277413, 88678253, 47564275, 8632867 ####[address] [address] AST [Catalytic activity/Vol] 26 Int._Unit/L Normal 5-43 [facility] Comment on above: Performed By: #### 1 8040019, 8983373, 28591186, 8297940, 2209476, 09951046, 52387025, 7161263 ####[place] [address] [place] [address] Interdisciplinary Note - Taz e Manageron 05-12-2023 Interdisciplinary Note - Director Child [facility] Comment on above: Result Comment: Elec tronically Signed By: Kera Diehl\.br\Date and Time Signed: 05/12/23 15:40 EDT Lipase LevelOrdered By: SYST EM SYSTEM on 05-12-2023 Lipase [Catalytic activity/Vol] 35 U/L Normal 13-58 [facility] Comment on above: Performed By: #### 1 1941156, 6223871, 59109493, 7763851, 3859360, 06858620, 47596107, 2210007 ####[place] [address] [place] [address] Main OR PACU I Recordon 04-16 Main OR PACU I Record Normal [facility] Main OR Preoperative Recordo n 05-12-2023 Main OR Preoperative Record Normal [facility] Monitor Recordon 05-12-2023 Monitor Record [id number]#1.00TIFF Normal [facility] Monitor Record [id number]#1.00TIFF Normal [facility] Monitor Record [id number]#1.00TIFF Normal [facility] PT & PTTon 05-12-2023 aPTT Coag (PPP) [Time] 34.7 second(s) Normal 25.1-36.5 [facility] Comment on above: Result Comment: Para [...] the same coagulation reagent and instrumentation as [facility]. Currently there are no coagulation studies available worldwide for children to 14 days, and no normal ranges. Heparin therapeutic range (represented by Anti-Factor Xa activity of 0.2 - 0.4 U/mL) corresponds to PTT of 56.6 - 109.0 sec. Performed By: #### 1 7077473, 6826561, 76354176, 3598177, 7808773, 95232744, 93340790, 9840734 ####[facility] [address] [place] [address] PT Coag (PPP) [Time] 13.1 second(s) High 9.4-12.5 [facility] Comment on above: Result Comment: 15 [...] the same coagulation reagent and instrumentation as [facility]. Currently there are no coagulation studies available worldwide for children to 14 days, and no normal ranges. Performed By: #### 1 8835297, 9744960, 51740773, 5226953, 8366756, 46254150, 06577871, 0906748 ####[facility] [address] [place] [address] PT & PTTOrdered By: Shannon cutler on 05-12-2023 INR Coag (PPP) [Relative time] 1.17 {INR} Invalid Interpretation Code [facility] Auto Coag Comment on above: Interpretive Data: [...] 3.0 ? 4.5 Performed By: #### 1 3745833, 5356863, 50346550, 1906262, 1305112, 67162075, 06734338, 7111388 ####[facility] [address] [place] [address] Provider Letteron 05-12-2023 Provider Letter Normal [facility] SEROLOGYOrdered By: Shannon cutler on 05-12-2023 Beta HCG ( test) Ql Negative (05/12/23 10:00 AM) Normal [facility] Man Sero Troponin 0 Hr.on 05-12-2023 Troponin I.cardiac [Mass/Vol] ng/mL Low 10.10-27.10 [facility] Comment on above: Result Comment: The 95% CI (Confidence Interval) PPV (Positive Predictive Value) for myocardial infarction in females is 38 pg/mL, in males 51 pg/mL. The results should be used in conjunction with clinical conditions of myocardial infarction.(Access High Sensitivity Troponin I Instructions For Use, Alan Kneeland, September 2017) Performed By: #### 1 2744359, 4887575, 47840761, 0914097, 4701258, 57783240, 71324323, 1394669 ####[facility] [address] [place] [address] eGFROrdered By: SYSTEM [employer] on 05-12-2023 eGFR 76 mL/min/1.73 m2 Normal >=59 [facility] Comment on above: Order Comment: Order added by Discern Expert. Performed By: #### 1 9710406, 8644817, 89839809, 3410647, 5122179, 08525044, 64145061, 3039950 ####[facility] [address] [place] [address] CBC w/ Auto Diffon 4 Basophils/100 WBC (Bld) 0.7 % Normal 0.0-2.0 [facility] Comment on above: Performed By: #### 2 253810, 8065142, 34536756, 8500708, 5377664, 4295520 ####[facility] [address] [place] [address] Basophils/Leukocyte s Auto (Bld) [Pure # fraction] 0.0 E9/L Normal 0.0-0.2 [facility] Comment on above: Performed By: #### 2 090189, 2739538, 34347645, 2955476, 0781779, 9717843 ####[facility] [address] [place] [address] Eosinophils (Bld) [#/Vol] 0.0 E9/L Normal 0.0-0.5 [facility] Comment on above: Performed By: #### 2 411582, 5754349, 33820117, 8898637, 2548068, 2716194 ####[address] [address] Eosinophils/100 WBC (Bld) 1.5 % Normal 0.0-8.0 [facility] Comment on above: Performed By: #### 2 711081, 9792015, 96710092, 2184813, 6174278, 9702906 ####[address] [address] Erythrocyte distribution width (RBC) [Ratio] 14.6 % High 10.9-14.2 [facility] Comment on above: Performed By: #### 2 850609, 7573063, 21393477, 6511068, 8762080, 0027618 ####[address] [address] Hematocrit (Bld) [Volume fraction] 38.7 % Normal 34.0-46.0 [facility] Comment on above: Performed By: #### 2 739443, 0316631, 15348583, 1002475, 9802157, 5090757 ####[address] [address] Hemoglobin (Bld) [Mass/Vol] 13.2 g/dL Normal 12.0-16.0 [facility] Comment on above: Performed By: #### 2 129641, 7913169, 54010961, 7681571, 6026403, 1575839 ####[address] [address] Lymphocytes (Bld) [#/Vol] 1.3 E9/L Normal 1.0-4.0 [facility] Comment on above: Performed By: #### 2 884747, 4250185, 62047105, 5793726, 4664853, 8467989 ####[address] [address] Lymphocytes/100 WBC (Bld) 48.6 % Normal 14.0-50.0 [facility] Comment on above: Performed By: #### 2 285251, 0409917, 27753278, 3155735, 7987819, 2684479 ####[address] [place] [address] MCH (RBC) [Entitic mass] 30.3 pg Normal 27.0-34.0 [facility] Comment on above: Performed By: #### 2 462338, 4156831, 46941107, 8243477, 0483686, 2338293 ####[address] [address] MCHC (RBC) [Mass/Vol] 34.2 g/dL Normal 31.4-36.0 [facility] Comment on above: Performed By: #### 2 877711, 2951989, 84149804, 4071458, 1118183, 9623609 ####[address] [address] MCV (RBC) [Entitic vol] 88.6 fL Normal 80.0-100.0 [facility] Comment on above: Performed By: #### 2 337293, 0347848, 18016897, 9866564, 5518902, 8610171 ####[address] [address] Monocytes (Bld) [#/Vol] 0.2 E9/L Normal 0.2-1.0 [facility] Comment on above: Performed By: #### 2 135244, 7136901, 57773257, 5183116, 2074014, 2728371 ####[address] [address] Neutrophils (Bld) [#/Vol] 1.1 E9/L Low 2.0-7.5 [facility] Comment on above: Performed By: #### 2 936263, 6036251, 02674216, 1380094, 5796929, 0145674 ####[address] [place] [address] Neutrophils/100 WBC (Bld) 40.2 % Normal 36.0-75.0 [facility] Comment on above: Performed By: #### 2 196770, 4622263, 87909746, 9948105, 1354597, 9062297 ####[address] [place] [address] Platelet mean volume (Bld) [Entitic vol] 9.2 fL Normal 6.4-10.8 [facility] Comment on above: Performed By: #### 2 968299, 3914845, 34933985, 4290643, 3671168, 8410422 ####[address] [address] Platelets (Bld) [#/Vol] 195.0 E9/L Normal 150.0-500.0 [facility] Comment on above: Performed By: #### 2 198799, 1660673, 10970681, 4408309, 6855945, 1228687 ####[address] [address] RBC (Bld) [#/Vol] 4.4 E12/L Normal 4.3-5.9 [facility] Comment on above: Performed By: #### 2 188643, 2148926, 60583824, 3186439, 3129976, 1882430 ####[address] [address] WBC corrected for nucl RBC Auto (Bld) [#/Vol] 2.7 E9/L Low 4.0-11.0 [facility] Comment on above: Performed By: #### 2 345362, 9217787, 34435147, 1813143, 3827239, 1430492 ####[address] [place] [address] CHEMISTRYOrdered By: SYSTEM SYSTEM on 05-11-2023 Amphetamines [...] Alternate Method called to Maribel Ortega by [email or web address] Interpretive Data: N egative Cutoff: <300 ng/mL [...] [Mass/Vol] 4.6 g/dL Normal 3.3-5.0 [facility] Comment on above: Performed By: #### 2 174971, 9987270, 77619493, 0030669, 9171671, 5420400 ####[facility] [address] [place] [address] Albumin/Globulin (S) [Mass conc ratio] 1.8 Normal 1.1-2.2 [facility] Comment on above: Performed By: #### 2 917460, 0149308, 75620449, 8960117, 1777277, 7518300 ####[facility] [address] [place] [address] ALP [Catalytic activity/Vol] 60 Int._Unit/L Normal 21-98 [facility] Comment on above: Performed By: #### 2 935011, 4655780, 01325251, 8885173, 2105598, 0122949 ####[facility] [address] [place] [address] ALT No additional P-5'-P [Catalytic activity/Vol] 14 Int._Unit/L Normal 6-46 [facility] Comment on above: Performed By: #### 2 542065, 9791635, 56864104, 9354783, 5116775, 6458611 ####[facility] [address] [place] [address] Anion gap [Moles/Vol] 15 mmol/L Normal 6-16 [facility] Comment on above: Performed By: #### 2 197471, 9760563, 60684609, 2147997, 8412640, 1842213 ####[facility] [address] [place] [address] AST [Catalytic activity/Vol] 25 Int._Unit/L Normal 5-43 [facility] Comment on above: Performed By: #### 2 513666, 6087880, 32155382, 6928294, 3762971, 9559242 ####[facility] [address] [place] [address] Bilirubin [Mass/Vol] 0.5 mg/dL Normal 0.0-1.1 [facility] Comment on above: Performed By: #### 2 359372, 6773123, 58493777, 7538732, 7728063, 9979272 ####[facility] [address] [place] [address] Calcium [Mass/Vol] 9.4 mg/dL Normal 8.9-11.1 [facility] Comment on above: Performed By: #### 2 445422, 3883276, 87932662, 7249124, 5048947, 5305453 ####[facility] [address] [place] [address] Chloride [Moles/Vol] 104 mmol/L Normal 101-111 [facility] Comment on above: Performed By: #### 2 675956, 1211208, 11023863, 6199424, 4455405, 9683579 ####[facility] [address] [place] [address] CO2 [Moles/Vol] 23 mmol/L Normal 21-31 [facility] Comment on above: Performed By: #### 2 990448, 0949656, 49462590, 0367624, 8144116, 5453556 ####[facility] [address] [place] [address] Creatinine [Mass/Vol] 0.8 mg/dL Normal 0.5-1.3 [facility] Comment on above: Performed By: #### 2 766471, 4895247, 62321054, 0119307, 9360820, 8597459 ####[facility] [address] [place] [address] Globulin (S) [Mass/Vol] 2.5 g/dL Normal 1.4-4.0 [facility] Comment on above: Performed By: #### 2 652763, 2502229, 90159285, 2289402, 8325162, 5476831 ####[facility] [address] [place] [address] Glucose [Mass/Vol] 80 mg/dL Normal 55-199 [facility] Comment on above: Performed By: #### 2 162875, 8758956, 60051180, 3692022, 6764479, 2049826 ####[facility] [address] [place] [address] Potassium [Moles/Vol] 3.6 mmol/L Normal 3.5-5.3 [facility] Comment on above: Performed By: #### 2 657556, 1764789, 04530369, 4724587, 8598001, 1523636 ####[facility] [address] [place] [address] Protein [Mass/Vol] 7.1 g/dL Normal 6.0-7.8 [facility] Comment on above: Performed By: #### 2 352514, 5780806, 70336021, 3341180, 5410996, 6858366 ####[facility] [address] [place] [address] Sodium [Moles/Vol] 138 mmol/L Normal 135-145 [facility] Comment on above: Performed By: #### 2 579158, 6553685, 89064422, 7139528, 8800948, 1430747 ####[facility] [address] [place] [address] Urea nitrogen [Mass/Vol] 9 mg/dL Normal 5-21 [facility] Comment on above: Performed By: #### 2 516355, 3090069, 93420380, 4474994, 2960335, 5150133 ####[facility] [address] [place] [address] Urea nitrogen/Creatinine [Mass ratio] 11 No Units Normal 10-20 [facility] Comment on above: Performed By: #### 2 172154, 1748836, 79879710, 6360018, 7443681, 9634100 ####[facility] [address] [place] [address] CT Abdomen/Pelvis w/o Contra ston 05-11-2023 CT Abdomen/Pelvis w/o Contrast Normal [facility] Consent for Treatmenton 04-16 Consent for Treatment [id number] 37#1.00TIFF Normal [facility] Discharge Instructionson Discharge Instructions [id number] 81#1.00TIFF Normal [facility] ED Clinical Summaryon 2023 ED Clinical Summary Normal [facility] ED Note-Physicianon 05-11-19 ED Note-Physician Normal [facility] Comment on above: Result Comment: Elec tronically Signed By: Tiffani Cunningham PA-C\.br\Date and Time Signed: 05/11/23 17:06 EDT\.br\Electronically Co-Signed By: Mateusz Garcia DO\.br\Date and Time Co-Signed: 05/11/23 20:41 EDT ED Patient Education Noteon 05-11-2023 ED Patient Education Note Normal [facility] ED Patient Summaryon 024 ED Patient Summary Normal [facility] HEMATOLOGYOrdered By: SYSTEM SYSTEM on 05-11-2023 [...] Lactic Acid Lvl 0.6 mmol/L Normal 0.5-2.2 [facility] Comment on above: Performed By: #### 2 612604, 9833725, 22266579, 7643531, 2756298, 9236171 ####[facility] [address] [place] [address] Lipase Levelon 05-11-2023 Lipase [Catalytic activity/Vol] 34 U/L Normal 13-58 [facility] Comment on above: Performed By: #### 2 956271, 8540293, 47798199, 9783441, 2360710, 3642921 ####[facility] [address] [place] [address] Magnesiumon 05-11-2023 Magnesium [Mass/Vol] 2.1 mg/dL Normal 1.3-2.4 [facility] Comment on above: Performed By: #### 2 416869, 0778940, 70792984, 7504532, 9650427, 3521628 ####[facility] [address] [place] [address] SEROLOGYOrdered By: Olga Meng on 05-11-2023 HCG.beta subunit (U) [Moles/Vol] Negative Normal [facility] Man Sero U BetaHcg Qualon 05-11-2023 HCG.beta subunit (U) [Moles/Vol] Negative Normal [facility] Comment on above: Performed By: #### 4 [id number], 17651423 ####[facility] [address] [place] [address] U Drug Screenon 05-11-2023 Amphetamines Screen method >1000 ng/mL Ql (U) Negative Normal NEGATIVE [facility] Comment on above: Result Comment: Nega tive Cutoff: <1000 ng/mL Performed By: #### 2 670419 ####[facility] [address] [place] [address] Barbiturates Screen Ql (U) Negative Normal NEGATIVE [facility] Comment on above: Result Comment: Nega tive Cutoff: <200 ng/mL Performed By: #### 2 996107 ####[facility] [address] [place] [address] Benzodiazepines Ql (U) Negative Normal NEGATIVE [facility] Comment on above: Result Comment: Nega tive Cutoff: <200 ng/mL Performed By: #### 2 963571 ####[facility] [address] [place] [address] Cannabinoids Screen Ql (U) Positive Abnormal NEGATIVE [facility] Comment on above: Result Comment: No C onfirmation Requested by PhysicianResult Verified by Repeat AnalysisUnconfirmed by an Alternate Methodcalled to Maribel Ortega by MIRYAM at 1404Negative Cutoff: <50 ng/mL Performed By: #### 2 929295 ####[facility] [address] [place] [address] Cocaine Ql (U) Negative Normal NEGATIVE [facility] Comment on above: Result Comment: Nega tive Cutoff: <300 ng/mL Performed By: #### 2 795943 ####[facility] [address] Opiates Screen Ql (U) Positive Abnormal NEGATIVE [facility] Comment on above: Result Comment: No C onfirmation Requested by PhysicianResult Verified by Repeat AnalysisUnconfirmed by an Alternate Methodcalled to Maribel Ortega by MIRYAM [id number] Cutoff: <300 ng/mL Performed By: #### 2 746446 ####[facility] [address] [place] [address] Phencyclidine Screen method >25 ng/mL Ql (U) Negative Normal NEGATIVE [facility] Comment on above: Result Comment: Nega tive Cutoff: <25 ng/mLThese drug screen results are to be used for medical (i.e., treatment) purposes only. Unconfirmed drug screening results must not be used for non-medical purposes (e.g., employment testing, legal testing). Performed By: #### 2 521690 ####[facility] [address] [place] [address] UA with Cult Rflxon 05-11-19 24 Color (U) Light-Yellow Normal Yellow [facility] Comment on above: Result Comment: Micr oscopic readings are only performed on those samples that meet specific criteria set forth by [facility]. Performed By: #### 4 [id number], 26063551 ####[facility] [address] [place] [address] Glucose (U) [Mass/Vol] Negative Normal Negative [facility] Comment on above: Performed By: #### 4 660989976, 94369971 ####[facility] [address] [place] [address] Ketones Ql (U) Negative Normal Negative [facility] Comment on above: Performed By: #### 4 089409804, 82938141 ####[facility] [address] [place] [address] UA Blood Negative Normal Negative [facility] Comment on above: Performed By: #### 4 355178013, 59025910 ####[facility] [address] [place] [address] UA Clarity Clear Normal Clear [facility] Comment on above: Performed By: #### 4 224377057, 76077126 ####[address] [place] [address] UA Leuk Est Negative Normal Negative [facility] Comment on above: Performed By: #### 4 651439501, 03554132 ####[address] [address] UA Nitrite Negative Normal Negative [facility] Comment on above: Performed By: #### 4 052018530, 30377559 ####[facility] [address] [place] [address] UA pH 7.5 Invalid Interpretation Code 5.0-9.0 [facility] Comment on above: Performed By: #### 4 599929014, 95035909 ####[facility] [address] [place] [address], [place] [address] UA Protein Negative Normal Negative [facility] Comment on above: Performed By: #### 4 843906499, 25015383 ####[facility] [address] [place] [address] UA Spec Grav 1.010 Invalid Interpretation Code 1.005-1.030 [facility] Comment on above: Performed By: #### 4 989380768, 07476037 ####[facility] [address] [place] [address] UA Urobilinogen Negative Normal Negative [facility] Comment on above: Performed By: #### 4 739277267, 13069010 ####[facility] [address] [place] [address] Urobilinogen (U) [Mass/Vol] Negative Normal Negative [facility] Comment on above: Performed By: #### 4 693690823, 93279066 ####[facility] [address] [place] [address] UA Spec Desc Clean Catch Normal [facility] Comment on above: Performed By: #### 4 102949715, 34232320 ####[facility] [address] [place] [address] URINALYSISOrdered By: SYSTEM SYSTEM on 05-11-2023 Color (U) Light-Yellow 3 (05/11/23 12:41 PM) Normal Yellow [facility]A Auto SS Comment on above: Interpretive Data: M icroscopic readings are only performed on those samples that meet specific criteria set forth by [facility]. Glucose (U) [Mass/Vol] Negative Normal [...] 99 mL/min/1.73 m2 Normal >=59 [facility] Comment on above: Order Comment: Order added by Discern Expert. Performed By: #### 2 544407, 9997499, 72629482, 4488044, 3097373, 2268565 ####[facility] [address] [place] [address] Ambulatory Visit Summaryon 0 05-10-2023 Ambulatory Visit Summary Normal [address] [place] [address] [place] [address]- \.br\ Medications\.br\ What How Much When Why [...] us for your care.\.br\ \.br\ [facility] CNPNon 05-10-2023 CNPN Normal [facility] Family [facility] Office/Clini c Noteon 05-10-2023 Family Medicine Office/Clinic Note Normal [facility] Comment on above: Result Comment: Elec tronically Signed By: Jaquan Paula\.br\Date and Time Signed: 05/10/23 14:35 EDT [facility] Record[facility] 2023 Home Health Records [id number] Normal [facility] Provider Letteron 05-10-2023 Provider Letter Normal [facility] B hCG Qualon 05-09-2023 Beta HCG ( test) Ql Negative Normal [facility] Comment on above: Performed By: #### 1 3257644, 65848200, 9966736, 0723960, 4745690, 9358426 ####[facility] [address] [place] [address] BMPon 05-09-2023 Anion gap [Moles/Vol] 12 mmol/L Normal 6-16 [facility] Comment on above: Performed By: #### 1 6783162, 42196109, 7928740, 3680589, 6096588, 4100418 ####[facility] [address] [place] [address] Calcium [Mass/Vol] 8.6 mg/dL Low 8.9-11.1 [facility] Comment on above: Performed By: #### 1 0212689, 64778227, 7105461, 3312618, 0557708, 9287340 ####[facility] [address] [place] [address] Chloride [Moles/Vol] 109 mmol/L Normal 101-111 [facility] Comment on above: Performed By: #### 1 2014333, 05864955, 5251473, 4915039, 9567667, 7191684 ####[facility] [address] [place] [address] CO2 [Moles/Vol] 23 mmol/L Normal 21-31 [facility] Comment on above: Performed By: #### 1 9424738, 59915399, 2079346, 8989764, 4438271, 1195402 ####[facility] [address] [place] [address] Creatinine [Mass/Vol] 0.8 mg/dL Normal 0.5-1.3 [facility] Comment on above: Performed By: #### 1 0968366, 19309442, 5159776, 5604239, 7837782, 2525151 ####[facility] [address] [place] [address] Glucose [Mass/Vol] 79 mg/dL Normal 55-199 [facility] Comment on above: Performed By: #### 1 0099551, 88566731, 4364591, 0571075, 5604760, 8279228 ####[facility] [address] [place] [address] Potassium [Moles/Vol] 3.9 mmol/L Normal 3.5-5.3 [facility] Comment on above: Performed By: #### 1 0408064, 60581754, 3954578, 5641040, 6045588, 8396469 ####[facility] [address] [place] [address] Sodium [Moles/Vol] 140 mmol/L Normal 135-145 [facility] Comment on above: Performed By: #### 1 3002719, 66586072, 5101143, 6625918, 7273793, 4777114 ####[facility] [address] [place] [address] Urea nitrogen [Mass/Vol] 9 mg/dL Normal 5-21 [facility] Comment on above: Performed By: #### 1 1798799, 92456228, 2026486, 3454670, 7138448, 4396296 ####[facility] [address] [place] [address] Urea nitrogen/Creatinine [Mass ratio] 11 No Units Normal 10-20 [facility] Comment on above: Performed By: #### 1 3791860, 09030567, 6715709, 8372903, 2092874, 1673271 ####[address] [address] CBC w/ Auto Diffon 4 Basophils/100 WBC (Bld) 1.1 % Normal 0.0-2.0 [facility] Comment on above: Performed By: #### 1 2814112, 69436920, 7232171, 0151703, 6426196, 5674066 ####[address] [address] Basophils/Leukocyte s Auto (Bld) [Pure # fraction] 0.0 E9/L Normal 0.0-0.2 [facility] Comment on above: Performed By: #### 1 8104161, 44779298, 9500343, 7413598, 2918563, 9642745 ####[place] [address] Eosinophils (Bld) [#/Vol] 0.1 E9/L Normal 0.0-0.5 [facility] Comment on above: Performed By: #### 1 9825676, 95759895, 3105504, 5869393, 3688040, 3162904 ####[address] [address] Eosinophils/100 WBC (Bld) 2.1 % Normal 0.0-8.0 [facility] Comment on above: Performed By: #### 1 8305131, 41106206, 0244815, 7916798, 0818107, 9785274 ####[address] [address] Erythrocyte distribution width (RBC) [Ratio] 14.4 % High 10.9-14.2 [facility] Comment on above: Performed By: #### 1 3834803, 81263037, 0394223, 4510705, 5672896, 7706188 ####[address] [address] Hematocrit (Bld) [Volume fraction] 36.3 % Normal 34.0-46.0 [facility] Comment on above: Performed By: #### 1 2539342, 37515039, 8332573, 1554778, 7832570, 9131801 ####[facility] [address] [place] [address] Hemoglobin (Bld) [Mass/Vol] 12.3 g/dL Normal 12.0-16.0 [facility] Comment on above: Performed By: #### 1 7964057, 75554971, 6748863, 6782496, 4030185, 9413223 ####[address] [place] [address] Lymphocytes (Bld) [#/Vol] 1.2 E9/L Normal 1.0-4.0 [facility] Comment on above: Performed By: #### 1 4959063, 36698625, 0413076, 8786017, 4345153, 1641017 ####[address] [address] Lymphocytes/100 WBC (Bld) 42.2 % Normal 14.0-50.0 [facility] Comment on above: Performed By: #### 1 3961496, 33778573, 1630165, 4399482, 4726907, 3939838 ####[address] [place] [address] MCH (RBC) [Entitic mass] 30.2 pg Normal 27.0-34.0 [facility] Comment on above: Performed By: #### 1 8066756, 71524329, 6808120, 2135553, 3429190, 2077453 ####[address] [place] [address] MCHC (RBC) [Mass/Vol] 33.9 g/dL Normal 31.4-36.0 [facility] Comment on above: Performed By: #### 1 5966161, 22464537, 9237031, 8405235, 0205445, 2427073 ####[address] [address] MCV (RBC) [Entitic vol] 89.2 fL Normal 80.0-100.0 [facility] Comment on above: Performed By: #### 1 5869607, 34164902, 5798472, 5746748, 1178770, 4923374 ####[address] [address] Monocytes (Bld) [#/Vol] 0.3 E9/L Normal 0.2-1.0 [facility] Comment on above: Performed By: #### 1 6161892, 40144063, 3752366, 4972998, 0087454, 6891740 ####[address] [address] Neutrophils (Bld) [#/Vol] 1.2 E9/L Low 2.0-7.5 [facility] Comment on above: Performed By: #### 1 0467872, 67388023, 6671968, 7588256, 0710679, 6456947 ####[address] [address] Neutrophils/100 WBC (Bld) 44.3 % Normal 36.0-75.0 [facility] Comment on above: Performed By: #### 1 4609974, 73353157, 7886302, 7059338, 5497363, 7870559 ####[address] [address] Platelet 201.0 E9/L Normal 150.0-500.0 [facility] Comment on above: Performed By: #### 1 8574791, 47940126, 9729397, 5742282, 2361963, 8051816 ####[address] [address] Platelet mean volume (Bld) [Entitic vol] 9.8 fL Normal 6.4-10.8 [facility] Comment on above: Performed By: #### 1 3493639, 84145885, 1775528, 8204159, 1265940, 9584052 ####[facility] [address] [place] [address] RBC (Bld) [#/Vol] 4.1 E12/L Low 4.3-5.9 [facility] Comment on above: Performed By: #### 1 4195653, 84917114, 5143374, 4213297, 1722111, 3227533 ####[facility] [address] [place] [address] WBC corrected for nucl RBC Auto (Bld) [#/Vol] 2.8 E9/L Low 4.0-11.0 [facility] Comment on above: Performed By: #### 1 5228905, 19226922, 9633506, 5867492, 1687996, 2985276 ####[facility] [address] [place] [address] CHEMISTRYOrdered By: SYSTEM SYSTEM on 05-09-2023 Albumin [...] for Treatmenton 04-16 Consent for Treatment [id number] E0#1.00TIFF Normal [facility] Discharge Instructionson Discharge Instructions [id number] 14#1.00TIFF Normal [facility] ED Clinical Summaryon 2023 ED Clinical Summary Normal [facility] ED Note-Nursingon 05-09-2023 ED Note-Nursing Discharge materials given, wheeled patient out. Home with family care. Normal [facility] ED Note-Physicianon 05-09-19 ED Note-Physician Normal [facility] Comment on above: Result Comment: Elec tronically Signed By: Blanca QUIROZ, Lonnie\.br\Date and Time Signed: 05/09/23 15:52 EDT\.br\Electronically Co-Signed By: Mateusz Garcia DO.br\Date and Time Co-Signed: 05/09/23 17:19 EDT ED Patient Education Noteon 05-09-2023 ED Patient Education Note Normal [facility] ED Patient Summaryon 024 ED Patient Summary Normal [facility] HEMATOLOGYOrdered By: SYSTEM SYSTEM on 05-09-2023 [...] [Mass/Vol] 4.3 g/dL Normal 3.3-5.0 [facility] Comment on above: Performed By: #### 1 5450527, 79740062, 0873576, 8856918, 3060470, 3852030 ####[facility] [address] [place] [address] Albumin/Globulin (S) [Mass conc ratio] 1.8 Normal 1.1-2.2 [facility] Comment on above: Performed By: #### 1 7330888, 00222474, 5303200, 2231440, 4916355, 1257814 ####[facility] [address] [place] [address] ALP [Catalytic activity/Vol] 51 Int._Unit/L Normal 21-98 [facility] Comment on above: Performed By: #### 1 6526170, 04529879, 3335834, 1929281, 1455603, 4092958 ####[facility] [address] [place] [address] ALT No additional P-5'-P [Catalytic activity/Vol] 15 Int._Unit/L Normal 6-46 [facility] Comment on above: Performed By: #### 1 0749300, 48609168, 4705162, 3036238, 1855790, 1763958 ####[facility] [address] [place] [address] AST [Catalytic activity/Vol] 26 Int._Unit/L Normal 5-43 [facility] Comment on above: Performed By: #### 1 0146849, 86690914, 0497693, 0064387, 0642125, 2284289 ####[facility] [address] [place] [address] Bilirubin [Mass/Vol] 0.3 mg/dL Normal 0.0-1.1 [facility] Comment on above: Performed By: #### 1 0576325, 48443020, 5414472, 3130935, 8317382, 7302750 ####[address] [place] [address] Bilirubin.direct [Mass/Vol] 0.1 mg/dL Normal 0.0-0.4 [facility] Comment on above: Performed By: #### 1 9220524, 64154635, 0947068, 4894008, 4309522, 3793830 ####[address] [address] Bilirubin.indirect [Mass or moles/Vol] 0.2 mg/dL Normal 0.1-0.9 [facility] Comment on above: Performed By: #### 1 9654511, 14130458, 2171755, 6011301, 6868086, 3067016 ####[address] [address] Globulin (S) [Mass/Vol] 2.4 g/dL Normal 1.4-4.0 [facility] Comment on above: Performed By: #### 1 1454015, 05208251, 4433020, 3073623, 5616892, 6514193 ####[address] [place] [address] Protein [Mass/Vol] 6.7 g/dL Normal 6.0-7.8 [facility] Comment on above: Performed By: #### 1 9575471, 89262353, 6443903, 7946205, 0368342, 2108415 ####[address] [place] [address] Lipase Levelon 05-09-2023 Lipase [Catalytic activity/Vol] 68 U/L High 13-58 [facility] Comment on above: Performed By: #### 1 2005097, 96182551, 3860258, 5201295, 1116601, 7768626 ####[facility] [address] [place] [address] SEROLOGYOrdered By: Stacia Arroyo on 05-09-2023 Beta HCG ( test) Ql Negative (05/09/23 12:12 PM) Normal [facility] Man Sero eGFRon 05-09-2023 eGFR 99 mL/min/1.73 m2 Normal >=59 [facility] Comment on above: Order Comment: Order added by Discern Expert. Performed By: #### 1 6991598, 85159656, 2933907, 0301104, 0826212, 3917871 ####[facility] [address] [place] [address] CNPNon 05-07-2023 CNPN Normal [facility] ED Note-Physicianon 05-07-19 ED Note-Physician Normal [facility] Comment on above: Result Comment: Elec tronically Signed By: Justine German PA-C\.br\Date and Time Signed: 05/06/23 21:25 EDT\.br\Electronically Co-Signed By: Mateusz Garcia DO\.br\Date and Time Co-Signed: 05/07/23 07:00 EDT Amylaseon 05-06-2023 Amylase [Catalytic activity/Vol] 40 U/L Normal 25-157 [facility] Comment on above: Order Comment: pt wa s poked once, pt extremely dehydrated and would like to wait for IV start [id number] 05/06/2023 16:33:00 EDT Performed By: #### 2 026056, 3315692, 3960731, 6749827, 98379599, 3252380, 4215029 ####[facility] [address] [place] [address] BMPon 05-06-2023 Anion gap [Moles/Vol] 13 mmol/L Normal 6-16 [facility] Comment on above: Order Comment: pt wa s poked once, pt extremely dehydrated and would like to wait for IV start doe933 05/06/2023 16:33:00 EDT Performed By: #### 2 6685[address], 3250168, 7141641, 6047980, 09587871, 0673165, 8905699 ####[facility] [address] [place] [address] Calcium [Mass/Vol] 9.1 mg/dL Normal 8.9-11.1 [facility] Comment on above: Order Comment: pt wa s poked once, pt extremely dehydrated and would like to wait for IV start [id number] 05/06/2023 16:33:00 EDT Performed By: #### 2 116953, 1076374, 6554482, 8570125, 07512259, 4715004, 0479415 ####[facility] [address] [place] [address] Chloride [Moles/Vol] 107 mmol/L Normal 101-111 [facility] Comment on above: Order Comment: pt lillian s poked once, pt extremely dehydrated and would like to wait for IV start psh334 05/06/2023 16:33:00 EDT Performed By: #### 2 982056, 7242207, 6089775, 5234079, 86010851, 5849416, 8297370 ####[facility] [address] [place] [address] CO2 [Moles/Vol] 22 mmol/L Normal 21-31 [facility] Comment on above: Order Comment: pt wa s poked once, pt extremely dehydrated and would like to wait for IV start [id number] 05/06/2023 16:33:00 EDT Performed By: #### 2 353202, 7476085, 1230515, 8527383, 02594381, 0172634, 2477362 ####[facility] [address] [place] [address] Creatinine [Mass/Vol] 0.8 mg/dL Normal 0.5-1.3 [facility] Comment on above: Order Comment: pt lillian s poked once, pt extremely dehydrated and would like to wait for IV start [id number] 05/06/2023 16:33:00 EDT Performed By: #### 2 788314, 8417330, 8706766, 7091515, 00098097, 4229039, 3667013 ####[facility] [address] [place] [address] Glucose [Mass/Vol] 80 mg/dL Normal 55-199 [facility] Comment on above: Order Comment: pt lillian s poked once, pt extremely dehydrated and would like to wait for IV start aab141 05/06/2023 16:33:00 EDT Performed By: #### 2 421060, 5451747, 6031075, 8895628, 17868976, 1386426, 6702900 ####[facility] [address] [place] [address] Potassium [Moles/Vol] 3.7 mmol/L Normal 3.5-5.3 [facility] Comment on above: Order Comment: pt lillian s poked once, pt extremely dehydrated and would like to wait for IV start [id number] 05/06/2023 16:33:00 EDT Performed By: #### 2 578877, 0895204, 7758886, 8361217, 79902363, 7842277, 6924203 ####[facility] [address] [place] [address] Sodium [Moles/Vol] 138 mmol/L Normal 135-145 [facility] Comment on above: Order Comment: pt lillian s poked once, pt extremely dehydrated and would like to wait for IV start [id number] 05/06/2023 16:33:00 EDT Performed By: #### 2 337924, 2096641, 6014183, 4272184, 55907794, 5480229, 9563385 ####[facility] [address] [place] [address] Urea nitrogen [Mass/Vol] 10 mg/dL Normal 5-21 [facility] Comment on above: Order Comment: pt lillian barber poked once, pt extremely dehydrated and would like to wait for IV start [id number] 05/06/2023 16:33:00 EDT Performed By: #### 2 014656, 2601001, 6437457, 3278129, 38019273, 3156526, 3941792 ####[facility] [address] [place] [address] Urea nitrogen/Creatinine [Mass ratio] 12 No Units Normal 10-20 [facility] Comment on above: Order Comment: pt lillian barber poked once, pt extremely dehydrated and would like to wait for IV start [id number] 05/06/2023 16:33:00 EDT Performed By: #### 2 099319, 2007719, 5489958, 4005201, 36000999, 5435150, 1371203 ####[facility] [address] [place] [address] CBC w/ Auto Diffon 4 Basophils/100 WBC (Bld) 1.1 % Normal 0.0-2.0 [facility] Comment on above: Order Comment: pt lillian s poked once, pt extremely dehydrated and would like to wait for IV start [id number] 05/06/2023 16:33:00 EDT Performed By: #### 2 937777, 0468055, 1202922, 0778054, 72759708, 9529073, 9711718 ####[facility] [address] [place] [address] Basophils/Leukocyte s Auto (Bld) [Pure # fraction] 0.0 E9/L Normal 0.0-0.2 [facility] Comment on above: Order Comment: pt lillian barber poked once, pt extremely dehydrated and would like to wait for IV start lay440 05/06/2023 16:33:00 EDT Performed By: #### 2 030060, 2184088, 9993959, 6773171, 41998938, 2886777, 1217773 ####[facility] [address] [place] [address] Eosinophils (Bld) [#/Vol] 0.1 E9/L Normal 0.0-0.5 [facility] Comment on above: Order Comment: pt lillian barber poked once, pt extremely dehydrated and would like to wait for IV start ggr293 05/06/2023 16:33:00 EDT Performed By: #### 2 318890, 8545163, 2860707, 0537195, 90945548, 9425225, 7613819 ####[facility] [address] [place] [address] Eosinophils/100 WBC (Bld) 1.5 % Normal 0.0-8.0 [facility] Comment on above: Order Comment: pt lillian barber poked once, pt extremely dehydrated and would like to wait for IV start [id number] 05/06/2023 16:33:00 EDT Performed By: #### 2 338351, 9629354, 8754757, 9009776, 96979640, 9393260, 2058176 ####[facility] [address] [place] [address] Erythrocyte distribution width (RBC) [Ratio] 14.1 % Normal 10.9-14.2 [facility] Comment on above: Order Comment: pt lillian barber poked once, pt extremely dehydrated and would like to wait for IV start wki118 05/06/2023 16:33:00 EDT Performed By: #### 2 730561, 8047717, 3967564, 7631265, 80287844, 2262756, 9254430 ####[facility] [address] [place] [address] Hematocrit (Bld) [Volume fraction] 37.9 % Normal 34.0-46.0 [facility] Comment on above: Order Comment: pt lillian barber poked once, pt extremely dehydrated and would like to wait for IV start cyt613 05/06/2023 16:33:00 EDT Performed By: #### 2 386343, 2749153, 1711244, 2698652, 51828161, 1032586, 5538446 ####[facility] [address] [place] [address] Hemoglobin (Bld) [Mass/Vol] 12.9 g/dL Normal 12.0-16.0 [facility] Comment on above: Order Comment: pt lillian barber poked once, pt extremely dehydrated and would like to wait for IV start alh408 05/06/2023 16:33:00 EDT Performed By: #### 2 725748, 7340595, 3405896, 1176846, 19079383, 3966649, 3141497 ####[facility] [address] [place] [address] Lymphocytes (Bld) [#/Vol] 1.4 E9/L Normal 1.0-4.0 [facility] Comment on above: Order Comment: pt lillian barber poked once, pt extremely dehydrated and would like to wait for IV start [id number] 05/06/2023 16:33:00 EDT Performed By: #### 2 618498, 8774894, 5526684, 8663943, 50916888, 0383121, 4664651 ####[address] [address] Lymphocytes/100 WBC (Bld) 33.8 % Normal 14.0-50.0 [facility] Comment on above: Order Comment: pt lillian barber poked once, pt extremely dehydrated and would like to wait for IV start [id number] 05/06/2023 16:33:00 EDT Performed By: #### 2 426373, 4262706, 2190692, 0700352, 49513029, 7271067, 5042682 ####[facility] [address] [place] [address] MCH (RBC) [Entitic mass] 30.3 pg Normal 27.0-34.0 [facility] Comment on above: Order Comment: pt lillian barber poked once, pt extremely dehydrated and would like to wait for IV start puj509 05/06/2023 16:33:00 EDT Performed By: #### 2 535643, 0482370, 5603884, 0781190, 07499013, 6917675, 7384137 ####[facility] [address] [place] [address] MCHC (RBC) [Mass/Vol] 34.1 g/dL Normal 31.4-36.0 [facility] Comment on above: Order Comment: pt wa s poked once, pt extremely dehydrated and would like to wait for IV start qbr331 05/06/2023 16:33:00 EDT Performed By: #### 2 788681, 5607430, 5823860, 3226369, 40013278, 1861510, 5571207 ####[address] [address] MCV (RBC) [Entitic vol] 88.8 fL Normal 80.0-100.0 [facility] Comment on above: Order Comment: pt wa s poked once, pt extremely dehydrated and would like to wait for IV start uew199 05/06/2023 16:33:00 EDT Performed By: #### 2 180442, 9087277, 6310140, 9145795, 51907558, 4736132, 2191957 ####[address] [address] Monocytes (Bld) [#/Vol] 0.3 E9/L Normal 0.2-1.0 [facility] Comment on above: Order Comment: pt wa s poked once, pt extremely dehydrated and would like to wait for IV start [id number] 05/06/2023 16:33:00 EDT Performed By: #### 2 904312, 4174125, 7726708, 7617811, 30544169, 5267104, 2485932 ####[facility] [address] [place] [address] Neutrophils (Bld) [#/Vol] 2.3 E9/L Normal 2.0-7.5 [facility] Comment on above: Order Comment: pt wa s poked once, pt extremely dehydrated and would like to wait for IV start [id number] 05/06/2023 16:33:00 EDT Performed By: #### 2 271406, 2485541, 6959423, 6178549, 86604321, 1219173, 1408341 ####[facility] [address] [place] [address] Neutrophils/100 WBC (Bld) 56.4 % Normal 36.0-75.0 [facility] Comment on above: Order Comment: pt wa s poked once, pt extremely dehydrated and would like to wait for IV start ava322 05/06/2023 16:33:00 EDT Performed By: #### 2 768207, 2567680, 1416403, 2741925, 45099306, 5565214, 1742827 ####[facility] [address] [place] [address] Platelet mean volume (Bld) [Entitic vol] 9.2 fL Normal 6.4-10.8 [facility] Comment on above: Order Comment: pt wa s poked once, pt extremely dehydrated and would like to wait for IV start wyk375 05/06/2023 16:33:00 EDT Performed By: #### 2 473914, 6337942, 4715547, 0497805, 19068506, 2952002, 5010829 ####[address] [place] [address] Platelets (Bld) [#/Vol] 192.0 E9/L Normal 150.0-500.0 [facility] Comment on above: Order Comment: pt wa s poked once, pt extremely dehydrated and would like to wait for IV start qff937 05/06/2023 16:33:00 EDT Performed By: #### 2 969424, 1741943, 7082680, 5922201, 87943535, 8605097, 4766369 ####[facility] [address] [place] [address] RBC (Bld) [#/Vol] 4.3 E12/L Normal 4.3-5.9 [facility] Comment on above: Order Comment: pt wa s poked once, pt extremely dehydrated and would like to wait for IV start hig480 05/06/2023 16:33:00 EDT Performed By: #### 2 150104, 2793468, 2543095, 7850040, 58180858, 8658389, 8689230 ####[facility] [address] [place] [address] WBC corrected for nucl RBC Auto (Bld) [#/Vol] 4.1 E9/L Normal 4.0-11.0 [facility] Comment on above: Order Comment: pt wa s poked once, pt extremely dehydrated and would like to wait for IV start dye545 05/06/2023 16:33:00 EDT Performed By: #### 2 238813, 4133111, 2018063, 3226941, 11893643, 1324623, 1161768 ####[facility] [address] [place] [address] CHEMISTRYOrdered By: SYSTEM SYSTEM on 05-06-2023 Albumin [...] for Treatmenton 04-16 Consent for Treatment [id number] 11#1.00TIFF Normal [facility] Discharge Instructionson Discharge Instructions [id number] 616#1.00TIFF Normal [facility] ED Clinical Summaryon 2023 ED Clinical Summary Normal [facility] ED Patient Education Noteon 05-06-2023 ED Patient Education Note Normal [facility] ED Patient Summaryon 024 ED Patient Summary Normal [facility] HEMATOLOGYOrdered By: SYSTEM SYSTEM on 05-06-2023 [...] [Mass/Vol] 4.6 g/dL Normal 3.3-5.0 [facility] Comment on above: Order Comment: pt lillian barber poked once, pt extremely dehydrated and would like to wait for IV start [id number] 05/06/2023 16:33:00 EDT Performed By: #### 2 695638, 5593809, 4366431, 1737180, 44634843, 6950251, 3445571 ####[facility] [address] [place] [address] Albumin/Globulin (S) [Mass conc ratio] 1.8 Normal 1.1-2.2 [facility] Comment on above: Order Comment: pt lillian barber poked once, pt extremely dehydrated and would like to wait for IV start [id number] 05/06/2023 16:33:00 EDT Performed By: #### 2 752046, 0089038, 0076971, 6742042, 67359234, 1252334, 1775692 ####[facility] [address] [place] [address] ALP [Catalytic activity/Vol] 56 Int._Unit/L Normal 21-98 [facility] Comment on above: Order Comment: pt lillian barber poked once, pt extremely dehydrated and would like to wait for IV start [id number] 05/06/2023 16:33:00 EDT Performed By: #### 2 679332, 1184682, 6687294, 5724702, 11495316, 9058382, 5836046 ####[facility] [address] [place] [address] ALT No additional P-5'-P [Catalytic activity/Vol] 14 Int._Unit/L Normal 6-46 [facility] Comment on above: Order Comment: pt lillian s poked once, pt extremely dehydrated and would like to wait for IV start byg874 05/06/2023 16:33:00 EDT Performed By: #### 2 916724, 5942578, 5078003, 8606027, 56305744, 6903827, 9100201 ####[facility] [address] [place] [address] AST [Catalytic activity/Vol] 25 Int._Unit/L Normal 5-43 [facility] Comment on above: Order Comment: pt wa nancy poked once, pt extremely dehydrated and would like to wait for IV start ozd424 05/06/2023 16:33:00 EDT Performed By: #### 2 522036, 2418362, 1573830, 3490844, 70479885, 3285039, 5183884 ####[facility] [address] [place] [address] Bilirubin [Mass/Vol] 0.5 mg/dL Normal 0.0-1.1 [facility] Comment on above: Order Comment: pt wa nancy poked once, pt extremely dehydrated and would like to wait for IV start [id number] 05/06/2023 16:33:00 EDT Performed By: #### 2 009594, 0105168, 3584934, 9429945, 55066879, 5558575, 2588481 ####[facility] [address] [place] [address] Bilirubin.direct [Mass/Vol] 0.1 mg/dL Normal 0.0-0.4 [facility] Comment on above: Order Comment: pt lillian barber poked once, pt extremely dehydrated and would like to wait for IV start [id number] 05/06/2023 16:33:00 EDT Performed By: #### 2 [id number], 5513631, 1617062, 7634686, [id number], [id number], [id number] ####[facility] [address] [place] [address] Bilirubin.indirect [Mass or moles/Vol] 0.4 mg/dL Normal 0.1-0.9 [facility] Comment on above: Order Comment: pt lillian barber poked once, pt extremely dehydrated and would like to wait for IV start [id number] 05/06/2023 16:33:00 EDT Performed By: #### 2 761044, 7073884, 1846561, 5076932, 52599301, 0694965, 2627928 ####[facility] [address] [place] [address] Globulin (S) [Mass/Vol] 2.5 g/dL Normal 1.4-4.0 [facility] Comment on above: Order Comment: pt wa s poked once, pt extremely dehydrated and would like to wait for IV start [id number] 05/06/2023 16:33:00 EDT Performed By: #### 2 794797, 1641459, 6385620, 1664112, 93485646, 7116133, 2953407 ####[facility] [address] [place] [address] Protein [Mass/Vol] 7.1 g/dL Normal 6.0-7.8 [facility] Comment on above: Order Comment: pt wa s poked once, pt extremely dehydrated and would like to wait for IV start [id number] 05/06/2023 16:33:00 EDT Performed By: #### 2 962541, 2468662, 8971686, 3937101, 49741312, 0823459, 3645043 ####[facility] [address] [place] [address] Lactic Acidon 05-06-2023 Lactic Acid Lvl 0.7 mmol/L Normal 0.5-2.2 [facility] Comment on above: Order Comment: pt wa s poked once, pt extremely dehydrated and would like to wait for IV start [id number] 05/06/2023 16:33:00 EDT Performed By: #### 2 865872, 6796414, 1222764, 9664964, 27568516, 7378264, 1488639 ####[facility] [address] [place] [address] Lipase Levelon 05-06-2023 Lipase [Catalytic activity/Vol] 62 U/L High 13-58 [facility] Comment on above: Order Comment: pt wa s poked once, pt extremely dehydrated and would like to wait for IV start [id number] 05/06/2023 16:33:00 EDT Performed By: #### 2 321623, 9490431, 3532516, 8380695, 19010784, 6808846, 0408668 ####[facility] [address] [place] [address] Monitor Recordon 05-06-2023 Monitor Record [id number]#1.00TIFF Normal [facility] Monitor Record [id number]#1.00TIFF Normal [facility] Monitor Record [id number]#1.00TIFF Normal [facility] Monitor Record [id number]#1.00TIFF Normal [facility] eGFRon 05-06-2023 eGFR 99 mL/min/1.73 m2 Normal >=59 [facility] Comment on above: Order Comment: Order added by Discern Expert. Performed By: #### 2 030577, 6176238, 4351237, 0233794, 41016719, 6974145, 1918423 ####[facility] [address] [place] [address] ED Note-Physicianon 04-07-19 24 ED Note-Physician [id number]#[id number] [facility] Alanine aminotransferase [En zymatic activity/volume] in Serum or PlasmaOrdered By: Trace Lowery on 04-06-2023 ALT [Catalytic activity/Vol] 21 U/L Normal 7 [facility] Comment on above: Performed By: #### A DDFLORECITA, BRITTANIECG, CUU #### [facility] [address] Albumin [Mass/volume] in Ser um or Plasma by Bromocresol green (BCG) dye binding methoOrdered By: Trace Solimanore on 04-06-2023 Albumin BCG dye [Mass/Vol] 4.5 g/dL 3.5-5.7 [facility] Alkaline phosphatase [Enzyma tic activity/volume] in Serum or PlasmaOrdered By: Trace Bullimore on 04-06-2023 ALP [Catalytic activity/Vol] 48 U/L Normal 34-104 [facility] Comment on above: Performed By: #### A MALLORIEUAJESSICA, [facility], CUU #### [address] Amylase [Enzymatic activity/ volume] in Serum or PlasmaOrdered By: Trace Leosimore on 04-06-2023 Amylase [Catalytic activity/Vol] 48 U/L Normal 29-103 [facility] Comment on above: Performed By: #### A CORY, [facility], U #### [address] Aspartate aminotransferase [ Enzymatic activity/volume] in Serum or PlasmaOrdered By: Trace Leosimlaurel on 04-06-2023 AST [Catalytic activity/Vol] 28 U/L Normal 13-39 [facility] Comment on above: Performed By: #### A CORY, [facility], CUU #### [address] Automated basophil %Ordered By: Trace Lowery on 04-06-2023 Basophils/100 WBC (Bld) 1.0 % Normal . [facility] Comment on above: Performed By: #### L IPASE, HEPATIC, RAEGAN, CBC, BMP #### [facility] [address] [place] [address] Automated basophil countOrde red By: Trace Lowery on 04-06-2023 Basophils (Bld) [#/Vol] 0.0 10*3/uL Normal 0.0-0.2 [facility] Comment on above: Result Comment: PERF ORMED BY: [place] [address] PATHOLOGIST MULTINEEDLE SHIRRER BAUTISTA BAKER M.D. Performed By: #### L IPASE, HEPATIC, RAEGAN, CBC, BMP #### [address] Automated blood monocyte cou ntOrdered By: Trace Bullimore on 04-06-2023 Monocytes (Bld) [#/Vol] 0.3 10*3/uL Normal 0.0-0.8 [facility] Comment on above: Performed By: #### L IPASE, HEPATIC, RAEGAN, CBC, BMP #### [address] Automated eosinophil %Ordere d By: Trace Bullimore on 04-06-2023 Eosinophils/100 WBC (Bld) 3.1 % Normal . [facility] Comment on above: Performed By: #### L IPASE, HEPATIC, RAEGAN, CBC, BMP #### [address] Automated eosinophil countOr dered By: Trace Bullimore on 04-06-2023 Eosinophils (Bld) [#/Vol] 0.1 10*3/uL Normal 0.0-0.45 [facility] Comment on above: Performed By: #### L IPASE, HEPATIC, RAEGAN, CBC, BMP #### [address] Automated erythrocytes count in urine sediment (number/area)Ordered By: Trace Bullimore on 04-06-2023 RBC Auto (Urine sed) [#/Area] 1-2 [HPF] 0-4 [facility] Automated leukocytes count i n urine sediment (number/area)Ordered By: Trace Bullimore on 04-06-2023 WBC Auto (Urine sed) [#/Area] 3-4 [HPF] 0-4 [facility] Automated monocyte %Ordered By: Trace Bullimore on 04-06-2023 Monocytes/100 WBC (Bld) 6.7 % Normal . [facility] Comment on above: Performed By: #### L IPASE, HEPATIC, RAEGAN, CBC, BMP #### [address] Automated neutrophil %Ordere d By: Trace Solimanore on 04-06-2023 Neutrophils/100 WBC (Bld) 51.6 % Normal . [facility] Comment on above: Performed By: #### L IPASE, HEPATIC, RAEGAN, CBC, BMP #### [facility] [address] Automated urine color determ inationOrdered By: Trace Lowery on 04-06-2023 Color (U) Yellow Normal Yellow [facility] Comment on above: Order Comment: Name Collection Type:: Clean-Voided Midstream Performed By: #### H EPATIC, MG, LIPASE, CMP, CBC #### [address] Basic Metabolic Panelon 03-19 Creatinine Clr Calc Pharmacy 98.98 Normal [facility] Comment on above: Performed By: #### A MALLORIEUABRITTANIE LOPEZCJarrod, CUU #### [address] GFR/1.73 sq M.predicted MDRD (S/P/Bld) [Vol rate/Area] mL/min/{1.73_m2} Normal [facility] Comment on above: Performed By: #### A DDFAIZAUABRITTANIE LOPEZCG, CUU #### [address] Bilirubin Test strip Ql (U)O rdered By: Trace Lowery on 04-06-2023 Bilirubin Ql (U) Negative Negative [facility] Bilirubin.direct [Mass/volum e] in Serum or PlasmaOrdered By: Trace Bullimore on 04-06-2023 Bilirubin.direct [Mass/Vol] 0.10 mg/dL 0.03-0.18 [facility] Bilirubin.total [Mass/volume ] in Serum or PlasmaOrdered By: Trace Bullimore on 04-06-2023 Bilirubin [Mass/Vol] 0.4 mg/dL Normal 0.3-1.0 [facility] Comment on above: Performed By: #### A DDONUAPLUS, UHCG, CUU #### [facility] [address] [place] [id number] [facility] CT abdomen pelvis w conon CT abdomen pelvis w con [facility] [place] [address] [place] [id number] Scan Report Signed Patient: Abbey Garcia MR#: [id number] : 1990 Acct:[id number] Age/Sex: 33 / F ADM Date: 04/06/23 Loc: ER Room: Type: [facility] ER Attending Dr: Copies to: AGA [...] Maricruz Hutchinson M.D.04/06/2023 1:50 PM Dictation Location: [place] [address] Transcribed By: SULEMA 04/06/23 1350 Dictated By: Maricruz Hutchinson MD 04/06/23 1341 Signed By: 04/06/23 1350 Normal [facility] Calcium [Mass/volume] in Ser um or PlasmaOrdered By: Trace Lwoery on 04-06-2023 Calcium [Mass/Vol] 9.1 mg/dL Normal 8.6-10.3 [facility] Comment on above: Performed By: #### A JOSESITO RAY, CUU #### [facility] [address] Carbon dioxide, total [Moles /volume] in Serum or PlasmaOrdered By: Trace Lowery on 04-06-2023 CO2 [Moles/Vol] 23.3 mmol/L Normal 21.0-31.0 [facility] Comment on above: Performed By: #### A JOSESITO RAY, CUU #### [facility] [address] [place] [address] [place] Chloride [Moles/volume] in S elder or PlasmaOrdered By: Trace Lowery on 04-06-2023 Chloride [Moles/Vol] 109 mmol/L High 98-107 [facility] Comment on above: Performed By: #### A BRITTANIE RAYCG, CUU #### [facility] [address] Complete Blood Count Auto Di ffon 04-06-2023 Mean Corpuscular HGB Conc 34.2 g/dL Normal 32.0-35.0 [facility] Comment on above: Performed By: #### L IPASE, HEPATIC, RAEGAN, CBC, BMP #### [facility] [address] [place] [address] [place] Monocytes/100 WBC (Bld) 15.98 % Normal 0.00-20.00 [facility] Comment on above: Performed By: #### L IPASE, HEPATIC, RAEGAN, CBC, BMP #### [facility] [address] NRBC% 0.1 /100{WBC} Normal 0-0.5 [facility] Comment on above: Performed By: #### L IPASE, HEPATIC, RAEGAN, CBC, BMP #### [address] Creatinine [Mass/volume] in Serum or PlasmaOrdered By: Trace Lowery on 04-06-2023 Creatinine [Mass/Vol] 0.86 mg/dL Normal 0.60-1.20 [facility] Comment on above: Performed By: #### A DDONUAPLUS, UHCG, CUU #### [address] Dipstick and Microscopicon 0 04-06-2023 Appearance (U) Cloudy Critically abnormal Clear [facility] Comment on above: Order Comment: Name Collection Type:: Clean-Voided Midstream Performed By: #### H EPATIC, MG, LIPASE, CMP, CBC #### [address] Bacteria,Urine None Seen Normal None Seen [facility] Comment on above: Order Comment: Name Collection Type:: Clean-Voided Midstream Performed By: #### H EPATIC, MG, LIPASE, CMP, CBC #### [address] Bilirubin,Urine Negative Normal Negative [facility] Comment on above: Order Comment: Name Collection Type:: Clean-Voided Midstream Performed By: #### H EPATIC, MG, LIPASE, CMP, CBC #### [address] Glucose Ql (U) Normal Normal Normal [facility] Comment on above: Order Comment: Name Collection Type:: Clean-Voided Midstream Performed By: #### H EPATIC, MG, LIPASE, CMP, CBC #### [place] [id number] [place] Hyaline Casts,Urine 0-8 Normal 0-8 [facility] Comment on above: Order Comment: Name Collection Type:: Clean-Voided Midstream Result Comment: PERF ORMED BY: [place] [address] PATHOLOGIST MULTINEEDLE SHIRRER BAUTISTA BAKER M.D. Performed By: #### H EPATIC, MG, LIPASE, CMP, CBC #### [address] Ketones Ql (U) Trace High Negative [facility] Comment on above: Order Comment: Name Collection Type:: Clean-Voided Midstream Performed By: #### H EPATIC, MG, LIPASE, CMP, CBC #### [address] Leukocyte esterase Test strip Ql (U) Negative Normal Negative [facility] Comment on above: Order Comment: Name Collection Type:: Clean-Voided Midstream Performed By: #### H EPATIC, MG, LIPASE, CMP, CBC #### [place] [address] [place] Nitrite,Urine Negative Normal Negative [facility] Comment on above: Order Comment: Name Collection Type:: Clean-Voided Midstream Performed By: #### H EPATIC, MG, LIPASE, CMP, CBC #### [place] [address] [place] Occult Blood,Urine Negative Normal Negative [facility] Comment on above: Order Comment: Name Collection Type:: Clean-Voided Midstream Result Comment: PERF ORMED BY: [place] [address] PATHOLOGIST MULTINEEDLE SHIRRER BAUTISTA BAKER M.D. Performed By: #### H EPATIC, MG, LIPASE, CMP, CBC #### [place] [address] [place] Protein,Urine Negative Normal Negative [facility] Comment on above: Order Comment: Name Collection Type:: Clean-Voided Midstream Performed By: #### H EPATIC, MG, LIPASE, CMP, CBC #### [address] RBC,Urine 1-2 Normal 0-4 [facility] Comment on above: Order Comment: Name Collection Type:: Clean-Voided Midstream Performed By: #### H EPATIC, MG, LIPASE, CMP, CBC #### [address] Specificy Arjay,Urine 1.026 Normal 1.001-1.030 [facility] Comment on above: Order Comment: Name Collection Type:: Clean-Voided Midstream Performed By: #### H EPATIC, MG, LIPASE, CMP, CBC #### [address] Squamous Epithelial Cell,Urine 3-4 High 0-2 [facility] Comment on above: Order Comment: Name Collection Type:: Clean-Voided Midstream Performed By: #### H EPATIC, MG, LIPASE, CMP, CBC #### [address] Urobilinogen,Urine Normal Normal Normal [facility] Comment on above: Order Comment: Name Collection Type:: Clean-Voided Midstream Performed By: #### H EPATIC, MG, LIPASE, CMP, CBC #### [address] WBC,Urine 3-4 Normal 0-4 [facility] Comment on above: Order Comment: Name Collection Type:: Clean-Voided Midstream Performed By: #### H EPATIC, MG, LIPASE, CMP, CBC #### [address] Erythrocyte distribution wid th [Ratio] by Automated countOrdered By: Trace Lowery on 04-06-2023 Erythrocyte distribution width (RBC) [Ratio] 13.9 % Normal 11.9-15.3 [facility] Comment on above: Performed By: #### L IPASE, HEPATIC, RAEGAN, CBC, BMP #### [address] Erythrocytes [#/volume] in B lood by Automated countOrdered By: Trace Lowery on 04-06-2023 RBC (Bld) [#/Vol] 4.17 10*6/uL Normal 3.60-5.00 [facility] Comment on above: Performed By: #### L IPASE, HEPATIC, RAEGAN, CBC, BMP #### [facility] [address] [place] [address] [place] Glucose [Mass/volume] in Ser um or PlasmaOrdered By: Trace Lowery on 04-06-2023 Glucose [Mass/Vol] 77 mg/dL Normal 70-100 [facility] Comment on above: ADA recommended refe rence rangeRandom Glucose Reference Range is dependent on time and content of last meal. Glucose of more than 200 mg/dL in a nonstressed, ambulatory subject supports the diagnosis of Diabetes Mellitus. Result Comment: [place] Glucose Reference Range is dependent on time and content of last meal. Glucose of more than 200 mg/dL in a nonstressed, ambulatory subject supports the diagnosis of Diabetes Mellitus. ADA recommended reference range Performed By: #### A DDONUAPLUS, UHCG, CUU #### [facility] [address] HCG ( test) IA.rapi d Ql (U)Ordered By: Trace Lowery on 04-06-2023 HCG ( test) Ql (U) Negative [facility] HCG,Urineon 04-06-2023 Beta HCG ( test) Ql (U) Negative Normal [facility] Comment on above: Result Comment: PERF ORMED BY: [place] [address] PATHOLOGIST MULTINEEDLE SHIRRER BAUTISTA BAKER M.D. Performed By: #### A DDONUAPLUS, UHCG, CUU #### [facility] [address] [place] [address] [place] Hematocrit [Volume Fraction] of Blood by Automated countOrdered By: Trace Lowery on 04-06-2023 Hematocrit (Bld) [Volume fraction] 37.4 % Normal 34.0-46.4 [facility] Comment on above: Performed By: #### L IPASE, HEPATIC, RAEGAN, CBC, BMP #### [facility] [address] Hemoglobin [Mass/volume] in BloodOrdered By: Trace Lowery on 04-06-2023 Hemoglobin (Bld) [Mass/Vol] 12.8 g/dL Normal 11.8-15.4 [facility] Comment on above: Performed By: #### L IPASE, HEPATIC, RAEGAN, CBC, BMP #### [facility] [address] Hepatic Panelon 04-06-2023 Albumin [Mass/Vol] 4.5 g/dL Normal 3.5-5.7 [facility] Comment on above: Performed By: #### A DDONUAPLUS, CG, CUU #### [address] Bilirubin,Indirect 0.3 mg/dL Normal [facility] Comment on above: Performed By: #### A DDONUAPLUS, CG, CUU #### [facility] [address] Bilirubin.indirect [Mass/Vol] 0.10 mg/dL Normal 0.03-0.18 [facility] Comment on above: Performed By: #### A DDONUAPLUS, UHCG, CUU #### [address] Ketones Auto test strip (U) [Mass/Vol]Ordered By: Trace Lowery on 04-06-2023 Ketones (U) [Mass/Vol] Trace Negative [facility] - UrinalysisOrder ed By: Trace Lowery on 04-06-2023 Hyaline casts LM Ql (Urine sed) 0-8 [LPF] 0-8 [facility] Leukocytes [#/volume] correc darvin for nucleated erythrocytes in Blood by Automated counOrdered By: Trace Lowery on 04-06-2023 WBC corrected for nucl RBC Auto (Bld) [#/Vol] 3.8 10*3/uL 3.8-11.6 [facility] Leukocytes [#/volume] in Blo od by Automated countOrdered By: Trace Lowery on 04-06-2023 WBC (Bld) [#/Vol] 3.8 10*3/uL Normal 3.8-11.6 [facility] Comment on above: Performed By: #### L IPASE, HEPATIC, RAEGAN, CBC, BMP #### [address] Lipase [Enzymatic activity/v olume] in Serum or PlasmaOrdered By: Trace Solimanore on 04-06-2023 Lipase [Catalytic activity/Vol] 86.0 U/L High 11.0-82.0 [facility] Comment on above: Result Comment: PERF ORMED BY: [place] [address] PATHOLOGIST MULTINEEDLE SHIRRER BAUTISTA BAKER M.D. Performed By: #### A DDONUAJESSICA, CG, JERONIMOU #### [address] Lymphocytes [#/volume] in Bl ood by Automated countOrdered By: Trace Lowery on 04-06-2023 Lymphocytes (Bld) [#/Vol] 1.4 10*3/uL Normal 1.00-4.8 [facility] Comment on above: Performed By: #### L IPASE, HEPATIC, RAEGAN, CBC, BMP #### [place] [address] [place] Lymphocytes/100 leukocytes i n Blood by Automated countOrdered By: Trace Lowery on 04-06-2023 Lymphocytes/100 WBC (Bld) 37.6 % Normal . [facility] Comment on above: Performed By: #### L IPASE, HEPATIC, RAEGAN, CBC, BMP #### [place] [address] [place] MCH [Entitic mass] by Automa darvin countOrdered By: Trace Solimanore on 04-06-2023 MCH (RBC) [Entitic mass] 30.6 pg Normal 24.7-34.3 [facility] Comment on above: Performed By: #### L IPASE, HEPATIC, RAEGAN, CBC, BMP #### [facility] [address] MCHC Auto (RBC) [Mass/Vol]Or dered By: Trace Leosimore on 04-06-2023 MCHC (RBC) [Mass/Vol] 34.2 g/dL 32.0-35.0 [facility] MCV [Entitic volume] by Auto mated countOrdered By: Trace Lowery on 04-06-2023 MCV (RBC) [Entitic vol] 89.7 fL Normal 80-100 [facility] Comment on above: Performed By: #### L IPASE, HEPATIC, RAEGAN, CBC, BMP #### [facility] [address] Monocyte distribution width [Entitic volume] in Blood by AutomatedOrdered By: Trace Lowery on 04-06-2023 Monocyte distribution width Auto (Bld) [Entitic vol] 15.98 % 0.00-20.00 [facility] Neutrophils [#/volume] in Bl ood by Automated countOrdered By: Trace Lowery on 04-06-2023 Neutrophils (Bld) [#/Vol] 2.0 10*3/uL Normal 1.8-7.7 [facility] Comment on above: Performed By: #### L IPASE, HEPATIC, RAEGAN, CBC, BMP #### [facility] [address] Nitrite Test strip Ql (U)Ord ered By: Trace Loweyr on 04-06-2023 Nitrite Ql (U) Negative Negative [facility] No Panel InformationOrdered By: Trace Lowery on 04-06-2023 Estimated GFR (CKD-EPI) > 60.0 mL/Min [facility] Creatinine Clearance (Chem 98.98 [facility] Nucleated erythrocytes [Pres ence] in Blood by Automated countOrdered By: Trace Lowery on 04-06-2023 Nucleated RBC Auto Ql (Bld) 0.1 /100{WBC} 0-0.5 [facility] Platelet mean volume [Entiti c volume] in Blood by Automated countOrdered By: Trace Leosimore on 04-06-2023 Platelet mean volume (Bld) [Entitic vol] 9.7 fL Normal 6.3-10.7 [facility] Comment on above: Performed By: #### L IPASE, HEPATIC, RAEGAN, CBC, BMP #### [address] Platelets [#/volume] in Bloo d by Automated countOrdered By: Trace Bullimore on 04-06-2023 Platelets (Bld) [#/Vol] 210 10*3/uL Normal 150-450 [facility] Comment on above: Performed By: #### L IPASE, HEPATIC, RAEGAN, CBC, BMP #### [address] Potassium [Moles/volume] in Serum or PlasmaOrdered By: Trace Bullimore on 04-06-2023 Potassium [Moles/Vol] 3.7 mmol/L Normal 3.5-5.1 [facility] Comment on above: Performed By: #### A DDONUAPLUS, UHCG, CUU #### [address] Protein Auto test strip (U) [Mass/Vol]Ordered By: Trace Dericimore on 04-06-2023 Protein (U) [Mass/Vol] Negative Negative [facility] Protein [Mass/volume] in Ser um or PlasmaOrdered By: Trace Bullimore on 04-06-2023 Protein [Mass/Vol] 7.1 g/dL Normal 6.4-8.9 [facility] Comment on above: Performed By: #### A DDONUAPLUS, UHCG, CUU #### [address] Serum globulin measurement b y calculation (mass/volume)Ordered By: Trace Dericimore on 04-06-2023 Globulin (S) [Mass/Vol] 2.6 g/dL Normal [facility] Comment on above: Performed By: #### A DDONUAPLUS, UHCG, CUU #### [address] [place] [address] [place] Serum or plasma albumin/glob ulin mass ratioOrdered By: Trace Bullimore on 04-06-2023 Albumin/Globulin [Mass ratio] 1.7 {ratio} Normal [facility] Comment on above: Performed By: #### A JOSESITO RAY, CUU #### [address] Serum or plasma anion gap de terminationOrdered By: Trace Bullimore on 04-06-2023 Anion gap [Moles/Vol] 12.4 mmol/L Normal 6.0-15.0 [facility] Comment on above: Performed By: #### A CORY ELIS, CUU #### [address] Serum or plasma non-glucuron idated bilirubin measurement (mass/volume)Ordered By: Trace Bullimore on 04-06-2023 Bilirubin.indirect [Mass/Vol] 0.3 mg/dL [facility] Sodium [Moles/volume] in Ser um or PlasmaOrdered By: Trace Bullimore on 04-06-2023 Sodium [Moles/Vol] 141 mmol/L Normal 136-145 [facility] Comment on above: Performed By: #### A CORY ELIS, CUU #### [address] Specific gravity Auto test s trip (U) [Rel density]Ordered By: Trace Bullimore on 04-06-2023 Specific gravity (U) [Rel density] 1.026 1.001-1.030 [facility] Squamous epithelial cells de tection in urine sediment by light microscopyOrdered By: Trace Bullimore on 04-06-2023 Epithelial cells.squamous LM Ql (Urine sed) 3-4 [HPF] 0-2 [facility] Urea nitrogen [Mass/volume] in Serum or PlasmaOrdered By: Trace Bullimore on 04-06-2023 Urea nitrogen [Mass/Vol] 10 mg/dL Normal 7-25 [facility] Comment on above: Performed By: #### A CORY [facility], CUU #### [facility] [address] Urine bacteria detection by automated methodOrdered By: Trace Lowery on 04-06-2023 Bacteria Auto Ql (U) None seen None Seen [facility] Urine clarity by refractomet ry automatedOrdered By: Trace Lowery on 04-06-2023 Clarity Refractometry automated (U) Cloudy Clear [facility] Urine glucose measurement by automated test strip (mass/volume)Ordered By: Trace Lowery on 04-06-2023 Glucose Auto test strip (U) [Mass/Vol] Normal mg/dL Normal [facility] Urine hemoglobin detection b y automated test stripOrdered By: Trace Lowery on 04-06-2023 Hemoglobin Auto test strip Ql (U) Negative Negative [facility] Urine leukocyte esterase det ection by automated test stripOrdered By: Trace Lowery on 04-06-2023 Leukocyte esterase Auto test strip Ql (U) Negative Negative [facility] Urine pH measurement by auto mated test stripOrdered By: Trace Lowery on 04-06-2023 pH (U) 7.5 [pH] Normal 5.0-9.0 [facility] Comment on above: Order Comment: Name Collection Type:: Clean-Voided Midstream Performed By: #### H EPATIC, MG, LIPASE, CMP, CBC #### [facility] [id number] [place] Urobilinogen Auto test strip (U) [Mass/Vol]Ordered By: Trace Lowery on 04-06-2023 Urobilinogen (U) [Mass/Vol] Normal mg/dL Normal [facility] BMPon 04-02-2023 Anion gap [Moles/Vol] 10 mmol/L Normal 07-31 [facility] Comment on above: Performed By: #### 2 767141, 9576748, 9887220, 88491990, 28839067, 80207095, 6524764, 65809494 ####[address] [place] [address] BUN/Creat Ratio 14 No Units Normal - [facility] Comment on above: Performed By: #### 2 983416, 7807117, 3588175, 30711099, 24591115, 80901990, 1105192, 01104002 ####[facility] [address] [place] [address] Calcium [Mass/Vol] 8.4 mg/dL Low 8.9-11.1 [facility] Comment on above: Performed By: #### 2 222972, 6680466, 8636952, 49430100, 09980636, 09698263, 2493948, 49167775 ####[facility] [address] [place] [address] Chloride [Moles/Vol] 111 mmol/L Normal 101-111 [facility] Comment on above: Performed By: #### 2 396838, 0809685, 4122275, 46453673, 16782749, 96994791, 7129635, 81886941 ####[facility] [address] [place] [address] CO2 [Moles/Vol] 21 mmol/L Normal 21-31 [facility] Comment on above: Performed By: #### 2 436073, 8971866, 7483271, 66996455, 73153658, 10110020, 2263759, 69702237 ####[facility] [address] [place] [address] Creatinine [Mass/Vol] 0.7 mg/dL Normal 0.5-1.3 [facility] Comment on above: Performed By: #### 2 341581, 1448111, 4630550, 71324130, 87141076, 78346792, 6094240, 23891958 ####[facility] [address] [place] [address] Glucose [Mass/Vol] 86 mg/dL Normal 55-199 [facility] Comment on above: Performed By: #### 2 940284, 0280615, 8007809, 55416292, 06708504, 54480588, 4029852, 13227195 ####[facility] [address] [place] [address] Potassium [Moles/Vol] 3.9 mmol/L Normal 3.5-5.3 [facility] Comment on above: Performed By: #### 2 884912, 3893702, 7529738, 30112651, 29651376, 58769158, 7209396, 74317348 ####[facility] [address] [place] [address] Sodium [Moles/Vol] 138 mmol/L Normal 135-145 [facility] Comment on above: Performed By: #### 2 656305, 0307714, 5011251, 64195301, 63854851, 63076583, 8958313, 31509060 ####[facility] [address] [place] [address] Urea nitrogen [Mass/Vol] 10 mg/dL Normal 5-21 [facility] Comment on above: Performed By: #### 2 359553, 4025220, 2585892, 26893319, 87138131, 88197228, 4399458, 92352612 ####[address] [place] [address] BNPon 04-02-2023 Int Ctr BNP Pass Normal [facility] Comment on above: Order Comment: 2nd d raw rejected due to clotted speciment. Phlebotomists notified of redraw by message. [facility] 04/02/2023 12:28:38 EST Performed By: #### 2 914974, 1643159, 5576138, 02008112, 27245269, 26706009, 8325402, 30366609 ####[facility] [address] [place] [address] Natriuretic peptide B (Bld) [Mass/Vol] 25 pg/mL Normal 5-80 [facility] Comment on above: Order Comment: 2nd d raw rejected due to clotted speciment. Phlebotomists notified of redraw by message. [facility] 04/02/2023 12:28:38 EST Performed By: #### 2 423105, 6269742, 2178797, 29358170, 48577890, 99233803, 9966219, 77031877 ####[facility] [address] [place] [address] CBC w/ Auto Diffon 4 Basophil Absolute 0.0 E9/L Normal 0.0-0.2 [facility] Comment on above: Order Comment: speci men rejected due to clot. Phlebotomists notified by message. [facility] 04/02/2023 11:56:19 EST\2nd draw rejected due to clot. Phlebotomists notified by message. [facility] 04/02/2023 12:27:56 EST Performed By: #### 2 066387, 8760281, 1370438, 36221586, 70152513, 32791381, 1338547, 27075269 ####[address] [place] [address] Basophils/100 WBC (Bld) 0.8 % Normal 0.0-2.0 [facility] Comment on above: Order Comment: speci men rejected due to clot. Phlebotomists notified by message. [facility] 04/02/2023 11:56:19 EST\2nd draw rejected due to clot. Phlebotomists notified by message. [facility] 04/02/2023 12:27:56 EST Performed By: #### 2 606093, 2051178, 9598820, 77257100, 35406724, 09015389, 0582036, 43781369 ####[facility] [address] [place] [address] Eos Absolute 0.2 E9/L Normal 0.0-0.5 [facility] Comment on above: Order Comment: speci men rejected due to clot. Phlebotomists notified by message. [facility] 04/02/2023 11:56:19 EST\2nd draw rejected due to clot. Phlebotomists notified by message. [facility] 04/02/2023 12:27:56 EST Performed By: #### 2 386337, 9642058, 1770062, 85154269, 41445530, 63176203, 1423524, 99316940 ####[facility] [address] [place] [address] Eosinophils/100 WBC (Bld) 3.1 % Normal 0.0-8.0 [facility] Comment on above: Order Comment: speci men rejected due to clot. Phlebotomists notified by message. [facility] 04/02/2023 11:56:19 EST\2nd draw rejected due to clot. Phlebotomists notified by message. [facility] 04/02/2023 12:27:56 EST Performed By: #### 2 580997, 5604124, 2377163, 70018449, 22499538, 25680597, 5859683, 96877261 ####[address] [place] [address] Erythrocyte distribution width (RBC) [Ratio] 14.0 % Normal 10.9-14.2 [facility] Comment on above: Order Comment: speci men rejected due to clot. Phlebotomists notified by message. [facility] 04/02/2023 11:56:19 EST\2nd draw rejected due to clot. Phlebotomists notified by message. [facility] 04/02/2023 12:27:56 EST Performed By: #### 2 426153, 2263053, 2335264, 79039616, 67022173, 56251775, 5031070, 63165479 ####[address] [place] [address] Hematocrit (Bld) [Volume fraction] 38.0 % Normal 34.0-46.0 [facility] Comment on above: Order Comment: speci men rejected due to clot. Phlebotomists notified by message. [facility] 04/02/2023 11:56:19 EST\2nd draw rejected due to clot. Phlebotomists notified by message. [facility] 04/02/2023 12:27:56 EST Performed By: #### 2 310948, 3950602, 3287879, 88410169, 12801505, 57140343, 4597711, 55282437 ####[facility] [address] [place] [address] Hemoglobin (Bld) [Mass/Vol] 12.8 g/dL Normal 12.0-16.0 [facility] Comment on above: Order Comment: speci men rejected due to clot. Phlebotomists notified by message. [facility] 04/02/2023 11:56:19 EST\2nd draw rejected due to clot. Phlebotomists notified by message. [facility] 04/02/2023 12:27:56 EST Performed By: #### 2 088366, 5643209, 4639373, 52086832, 89797846, 41814100, 9918558, 77358365 ####[facility] [address] [place] [address] Lymph Absolute 1.8 E9/L Normal 1.0-4.0 [facility] Comment on above: Order Comment: speci men rejected due to clot. Phlebotomists notified by message. [facility] 04/02/2023 11:56:19 EST\2nd draw rejected due to clot. Phlebotomists notified by message. [facility] 04/02/2023 12:27:56 EST Performed By: #### 2 534099, 3692246, 1779195, 16342276, 04884500, 50187884, 3849346, 83047399 ####[facility] [address] [place] [address] Lymphocytes/100 WBC (Bld) 34.1 % Normal 14.0-50.0 [facility] Comment on above: Order Comment: speci men rejected due to clot. Phlebotomists notified by message. [facility] 04/02/2023 11:56:19 EST\2nd draw rejected due to clot. Phlebotomists notified by message. [facility] 04/02/2023 12:27:56 EST Performed By: #### 2 913309, 0262423, 0589123, 31824761, 77812713, 88413306, 1559675, 78682250 ####[facility] [address] [place] [address] MCH (RBC) [Entitic mass] 29.8 pg Normal 27.0-34.0 [facility] Comment on above: Order Comment: speci men rejected due to clot. Phlebotomists notified by message. [facility] 04/02/2023 11:56:19 EST\2nd draw rejected due to clot. Phlebotomists notified by message. [facility] 04/02/2023 12:27:56 EST Performed By: #### 2 484481, 7082246, 6020075, 17201791, 77446027, 88808371, 0232280, 88133031 ####[facility] [address] [place] [address] MCHC (RBC) [Mass/Vol] 33.5 g/dL Normal 31.4-36.0 [facility] Comment on above: Order Comment: speci men rejected due to clot. Phlebotomists notified by message. [facility] 04/02/2023 11:56:19 EST\2nd draw rejected due to clot. Phlebotomists notified by message. [facility] 04/02/2023 12:27:56 EST Performed By: #### 2 492537, 0766938, 5294281, 78703141, 44346299, 09953680, 0074216, 14509668 ####[facility] [address] [place] [address] MCV (RBC) [Entitic vol] 88.9 fL Normal 80.0-100.0 [facility] Comment on above: Order Comment: speci men rejected due to clot. Phlebotomists notified by message. [facility] 04/02/2023 11:56:19 EST\2nd draw rejected due to clot. Phlebotomists notified by message. [facility] 04/02/2023 12:27:56 EST Performed By: #### 2 111146, 7201649, 1728476, 31110732, 73334541, 52252403, 1910852, 21782057 ####[facility] [address] [place] [address] Nelson Absolute 0.4 E9/L Normal 0.2-1.0 [facility] Comment on above: Order Comment: speci men rejected due to clot. Phlebotomists notified by message. [facility] 04/02/2023 11:56:19 EST\2nd draw rejected due to clot. Phlebotomists notified by message. [facility] 04/02/2023 12:27:56 EST Performed By: #### 2 999233, 9895715, 7440778, 99548482, 83786264, 46954221, 6723453, 69972246 ####[facility] [address] [place] [address] Monocytes/100 WBC (Bld) 7.4 % Normal 4.0-14.0 [facility] Comment on above: Order Comment: speci men rejected due to clot. Phlebotomists notified by message. [facility] 04/02/2023 11:56:19 EST\2nd draw rejected due to clot. Phlebotomists notified by message. [facility] 04/02/2023 12:27:56 EST Performed By: #### 2 056630, 8929184, 8486279, 54038514, 55400347, 84633004, 7707072, 46738552 ####[facility] [address] [place] [address] Neutro Absolute 2.9 E9/L Normal 2.0-7.5 [facility] Comment on above: Order Comment: speci men rejected due to clot. Phlebotomists notified by message. [facility] 04/02/2023 11:56:19 EST\2nd draw rejected due to clot. Phlebotomists notified by message. [facility] 04/02/2023 12:27:56 EST Performed By: #### 2 505142, 6761662, 8259010, 47245245, 14473613, 56454794, 5825763, 29491086 ####[facility] [address] [place] [address] Neutro Auto 54.6 % Normal 36.0-75.0 [facility] Comment on above: Order Comment: speci men rejected due to clot. Phlebotomists notified by message. [facility] 04/02/2023 11:56:19 EST\2nd draw rejected due to clot. Phlebotomists notified by message. [facility] 04/02/2023 12:27:56 EST Performed By: #### 2 776505, 9509394, 0130553, 78337040, 37176791, 66638360, 0687556, 56630130 ####[facility] [address] [place] [address] Platelet 204.0 E9/L Normal 150.0-500.0 [facility] Comment on above: Order Comment: speci men rejected due to clot. Phlebotomists notified by message. [facility] 04/02/2023 11:56:19 EST\2nd draw rejected due to clot. Phlebotomists notified by message. [facility] 04/02/2023 12:27:56 EST Result Comment: Demetra meneses with slide review Performed By: #### 2 689542, 0836250, 4501886, 99809579, 95340500, 09654087, 0433718, 65832048 ####[facility] [address] [place] [address] Platelet mean volume (Bld) [Entitic vol] 9.8 fL Normal 6.4-10.8 [facility] Comment on above: Order Comment: speci men rejected due to clot. Phlebotomists notified by message. [facility] 04/02/2023 11:56:19 EST\2nd draw rejected due to clot. Phlebotomists notified by message. [facility] 04/02/2023 12:27:56 EST Performed By: #### 2 722559, 8694808, 8683970, 50442680, 85564284, 39142455, 0076523, 59014657 ####[facility] [address] [place] [address] RBC 4.3 E12/L Normal 4.3-5.9 [facility] Comment on above: Order Comment: speci men rejected due to clot. Phlebotomists notified by message. [facility] 04/02/2023 11:56:19 EST\2nd draw rejected due to clot. Phlebotomists notified by message. [facility] 04/02/2023 12:27:56 EST Performed By: #### 2 602973, 1581916, 0074151, 56448108, 21556552, 46439093, 0556250, 97171038 ####[facility] [address] [place] [address] WBC 5.3 E9/L Normal 4.0-11.0 [facility] Comment on above: Order Comment: speci men rejected due to clot. Phlebotomists notified by message. [facility] 04/02/2023 11:56:19 EST\2nd draw rejected due to clot. Phlebotomists notified by message. [facility] 04/02/2023 12:27:56 EST Performed By: #### 2 888189, 4631061, 3931726, 68378769, 79635113, 96818622, 8514448, 59430102 ####[facility] [address] [place] [address] CHEMISTRYOrdered By: SYSTEM SYSTEM on 04-02-2023 Troponin [...] Sensitivity Troponin I Instructions For Use, Alan Kneeland, September 2017) Albumin [Mass/Vol] 3.9 g/dL Normal [...] 25 pg/mL Normal 5 - 80 pg/mL [facility] HemeManSS COAGULATIONOrdered By: Gladys Arroyo on 04-02-2023 aPTT Coag (PPP) [Time] 33.2 s Normal 25.1 - 36.5 second(s) [facility] Auto Coag Comment on above: Interpretive Data: [...] the same coagulation reagent and instrumentation as [facility]. Currently there are no coagulation studies available worldwide for children to 14 days, and no normal ranges. Heparin therapeutic range (represented by Anti-Factor Xa activity of 0.2 - 0.4 U/mL) corresponds to PTT of 56.6 - 109.0 sec. Fibrin D-dimer FEU (PPP) [Mass/Vol] 541 ng/mL FEU Invalid Interpretation Code 215 - 500 ng/mL FEU [facility] Auto Coag Comment on above: Result Comment: [...] [Relative time] 1.14 {INR} Invalid Interpretation Code [facility] Auto Coag Comment on above: Interpretive Data: I NR results are specifically intended to assess patients stabilized on long-term Anticoagulation therapy suggested INR s Less Intensive Anticoagulation 2.0 3.0 Conventional Range 3.0 4.5 PT Coag (PPP) [Time] 12.7 s High 9.4 - 12.5 second(s) [facility] Auto Coag Comment on above: Interpretive Data: [...] the same coagulation reagent and instrumentation as [facility]. Currently there are no coagulation studies available worldwide for children to 14 days, and no normal ranges. CTA Abdomen and Pelvison CTA Abdomen and Pelvis Normal [facility] CTA Cheston 04-02-2023 CTA Chest Normal [facility] Consent for Treatmenton 03-18 Consent for Treatment [id number] Normal [facility] D-Dimeron 04-02-2023 Fibrin D-dimer FEU (PPP) [Mass/Vol] [id number] Abnormal 215-500 [facility] Comment on above: Order Comment: speci [...] skin infectionsLiver cirrhosisPregnancy Performed By: #### 2 582039, 2106807, 3971956, 36938958, 71645286, 08317277, 1221148, 99144092 ####[facility] [address] [place] [address] Discharge Instructionson Discharge Instructions [id number] Normal [facility] ED Clinical Summaryon 2023 ED Clinical Summary Normal [facility] ED Note-Physicianon 04-02-19 ED Note-Physician Normal [facility] Comment on above: Result Comment: Elec tronically Signed By: Jose Ramon Martinez, Ashutosh Valles\.br\Date and Time Signed: 04/02/23 17:20 EST ED Patient Education Noteon 04-02-2023 ED Patient Education Note Normal [facility] ED Patient Summaryon 024 ED Patient Summary Normal [facility] Free T4on 04-02-2023 Free T4 [Mass/Vol] 0.75 ng/dL Normal 0.58-1.64 [facility] Comment on above: Performed By: #### 2 646464, 77853729, 7243472, 5185771 ####[facility] [address] [place] [address] HEMATOLOGYOrdered By: SYSTEM SYSTEM on 02-16-2024 Basophil Absolute 0.0 E9/L Normal 0.0 - [...] Normal 80.0 - 100.0 fL Remisol Heme Nelson Absolute 0.4 E9/L Normal 0.2 - 1.0 [...] [Mass/Vol] 3.9 g/dL Normal 3.3-5.0 [facility] Comment on above: Performed By: #### 2 082306, 20867443, 0133751, 1697610 ####[facility] [address] [place] [address] Albumin/Globulin [Mass ratio] 1.6 {ratio} Normal 1.1-2.2 [facility] Comment on above: Performed By: #### 2 153722, 61606003, 0043775, 1780671 ####[address] [place] [address] Alk Phos 50 Int._Unit/L Normal 21-98 [facility] Comment on above: Performed By: #### 2 129471, 93548677, 6228530, 1821961 ####[address] [address] ALT 27 Int._Unit/L Normal 6-46 [facility] Comment on above: Performed By: #### 2 651231, 97471991, 4814691, 9662827 ####[address] [place] [address] AST 36 Int._Unit/L Normal 5-43 [facility] Comment on above: Performed By: #### 2 673012, 69023332, 7485113, 4350984 ####[facility] [address] [place] [address] Bili Direct 0.0 mg/dL Normal 0.0-0.4 [facility] Comment on above: Performed By: #### 2 339760, 74012634, 0272374, 2368693 ####[address] [place] [address] Bili Indirect 0.3 mg/dL Normal 0.1-0.9 [facility] Comment on above: Performed By: #### 2 572795, 79585668, 4297106, 8103231 ####[facility] [address] [place] [address] Bili Total 0.3 mg/dL Normal 0.0-1.1 [facility] Comment on above: Performed By: #### 2 024507, 76049193, 0581749, 6780253 ####[facility] [address] [place] [address] Globulin (S) [Mass/Vol] 2.4 g/dL Normal 1.4-4.0 [facility] Comment on above: Performed By: #### 2 143840, 93512338, 7164313, 7526323 ####[address] [place] [address] Protein [Mass/Vol] 6.3 g/dL Normal 6.0-7.8 [facility] Comment on above: Performed By: #### 2 961954, 39472408, 9403592, 0077386 ####[address] [address] Lipase Levelon 04-02-2023 Lipase Lvl 124 unit/L High 13-58 [facility] Comment on above: Performed By: #### 2 058158, 05220701, 1678753, 0054591 ####[address] [place] [address] Magnesiumon 04-02-2023 Magnesium [Mass/Vol] 1.9 mg/dL Normal 1.3-2.4 [facility] Comment on above: Performed By: #### 2 809325, 0494881, 0185099, 37953260, 95169102, 96635809, 5706098, 06729217 ####[address] [place] [address] PT & PTTon 04-02-2023 aPTT Coag (PPP) [Time] 33.2 second(s) Normal 25.1-36.5 [facility] Comment on above: Order Comment: speci men rejected due to clot. phlebotomists notified of redraw by message. [facility] 04/02/2023 12:33:39 EST Result Comment: Para [...] the same coagulation reagent and instrumentation as [facility]. Currently there are no coagulation studies available worldwide for children to 14 days, and no normal ranges. Heparin therapeutic range (represented by Anti-Factor Xa activity of 0.2 - 0.4 U/mL) corresponds to PTT of 56.6 - 109.0 sec. Performed By: #### 2 100885, 2000453, 0736211, 20725425, 17167791, 47075859, 7951796, 39558189 ####[facility] [address] [place] [address] INR Coag (PPP) [Relative time] 1.14 {INR} Invalid Interpretation Code [facility] Comment on above: Order Comment: speci men rejected due to clot. phlebotomists notified of redraw by message. [facility] 04/02/2023 12:33:39 EST Result Comment: INR results are specifically intended to assess patients stabilized on long-term Anticoagulation therapy suggested INR?s ?Less Intensive Anticoagulation? 2.0 ? 3.0Conventional Range 3.0 ? 4.5 Performed By: #### 2 043998, 0924093, 0133282, 17890291, 72976643, 48730908, 5141255, 21272332 ####[facility] [address] [place] [address] PT Coag (PPP) [Time] 12.7 second(s) High 9.4-12.5 [facility] Comment on above: Order Comment: speci men rejected due to clot. phlebotomists notified of redraw by message. [facility] 04/02/2023 12:33:39 EST Result Comment: 15 [...] the same coagulation reagent and instrumentation as [facility]. Currently there are no coagulation studies available worldwide for children to 14 days, and no normal ranges. Performed By: #### 2 500579, 7927949, 4344303, 21388553, 00304397, 18650498, 2829353, 52686138 ####[facility] [address] [place] [address] Pre-Arrival Noteon Pre-Arrival Note Normal [facility] Progress Note-Nurseon 2023 Progress Note-Nurse CT called and verbalized IV infiltrated when attempting to flush. IV removed per this nurse and attempted to place IV with unsuccessful attempts. Dr. Albright and Sabina, RN aware. Normal [facility] TSH With T4fr Reflexon 04-02 TSH Qn 0.11 m[IU]/L Low 0.34-5.60 [facility] Comment on above: Performed By: #### 2 [id number], [id number], [id number], [id number] ####[facility] [address] [place] [address] Troponin 0 Hr.on 04-02-2023 Troponin 2.40 pg/mL Low 10.10-27.10 [facility] Comment on above: Result Comment: The 95% CI (Confidence Interval) PPV (Positive Predictive Value) for myocardial infarction in females is 38 pg/mL, in males 51 pg/mL. The results should be used in conjunction with clinical conditions of myocardial infarction.(Access High Sensitivity Troponin I Instructions For Use, [employer], September 2017) Performed By: #### 2 746040, 5733100, 0544944, 71363264, 93194041, [id number], 0568760, [id number] ####[facility] [address] [place] [address] Troponin 3 Hr.on 04-02-2023 Troponin I.cardiac [Mass/Vol] ng/mL Low 10.10-27.10 [facility] Comment on above: Result Comment: The 95% CI (Confidence Interval) PPV (Positive Predictive Value) for myocardial infarction in females is 38 pg/mL, in males 51 pg/mL. The results should be used in conjunction with clinical conditions of myocardial infarction.(Access High Sensitivity Troponin I Instructions For Use, [employer], September 2017) Performed By: #### 1 [id number] ####[facility] [address] [place] [address] XR Chest Single Viewon 04-02 XR Chest Single View Normal [facility] eGFRon 04-02-2023 eGFR 116 mL/min/1.73 m2 Normal >=59 [facility] Comment on above: Order Comment: Order added by Discern Expert. Performed By: #### 2 461542, 2578622, 3731362, 68609694, 67948771, 10828019, 6036415, [id number] ####[facility] [address] [place] [address] Home Health Recordson 2023 Home Health Records [id number] F2#1.00TIFF Normal [facility] Ambulatory Visit Summaryon 0 03-24-2023 Ambulatory Visit Summary Normal [facility] Auth for Release of Medical Recordson 03-24-2023 Auth for Release of Medical Records [id number] 9F#[id number] Normal [facility] Family Medicine Office/Clini c Noteon 03-24-2023 Family Medicine Office/Clinic Note Normal [facility] Comment on above: Result Comment: Elec tronically Signed By: Jaquan Paula.rene\Date and Time Signed: 03/24/23 15:20 EST CBC panel Auto (Bld)on 03-19 Erythrocyte distribution width (RBC) [Ratio] 12.1 % 11.5 - 14.5 % [facility] Hematocrit (Bld) [Volume fraction] 33.7 % Low 36.0 - 46.0 % [facility] Hemoglobin (Bld) [Mass/Vol] 11.9 g/dL Low 12.0 - 16.0 g/dL [facility] Interpretation and review of laboratory results Abnormal [facility] MCH (RBC) [Entitic mass] 30.1 pg 26.0 - 34.0 pg [facility] MCHC (RBC) [Mass/Vol] 35.3 g/dL 32.0 - 36.0 g/dL [facility] MCV (RBC) [Entitic vol] 85 fL 80 - 100 fL [facility] Nucleated RBC/100 WBC (Bld) [Ratio] 0.0 % [facility] Platelets (Bld) [#/Vol] 285 10*3/uL [facility] RBC (Bld) [#/Vol] 3.96 10*6/uL [facility] WBC (Bld) [#/Vol] 4.3 10*3/uL [facility] Erythrocyte distribution width (RBC) [Ratio] 12.1 % Normal 11.5-14.5 [facility] Comment on above: Performed By: #### V ERAB #### MELISA Galvan ([id number]) [facility] ([facility]) [address] [place] [address] [place] Hematocrit (Bld) [Volume fraction] 33.7 % Low 36.0-46.0 [facility] Comment on above: Performed By: #### V ERAB #### MELISA Galvan ([id number]) [facility] ([facility]) [address] [place], [place] [address] [place] Hemoglobin (Bld) [Mass/Vol] 11.9 g/dL Low 12.0-16.0 [facility] Comment on above: Performed By: #### V ERAB #### MELISA Galvan () [facility] ([facility]) [address] [place] [address] [place] MCH (RBC) [Entitic mass] 30.1 pg Normal 26.0-34.0 [facility] Comment on above: Performed By: #### V ERAB #### MELISA Galvan () [facility] ([facility]) [address] [place] [address] [place] MCHC (RBC) [Mass/Vol] 35.3 g/dL Normal 32.0-36.0 [facility] Comment on above: Performed By: #### V ERAB #### MELISA Galvan () [facility] [address] [place] [address] [place] MCV (RBC) [Entitic vol] 85 fL Normal 80-100 [facility] Comment on above: Performed By: #### V ERAB #### MELISA Galvan () [facility] [address] [place] [address] [place] Nucleated RBC/100 WBC (Bld) [Ratio] 0.0 /100 WBCs Normal 0.0-0.0 [facility] Comment on above: Performed By: #### V ERAB #### MELISA Galvan () [facility] ([facility]) [address] [place] [address] [place] Platelets (Bld) [#/Vol] 285 x10*3/uL Normal 150-450 [facility] Comment on above: Performed By: #### V ERAB #### MELISA Galvan () [facility] [address] [place] [address] [place] RBC (Bld) [#/Vol] 3.96 x10*6/uL Low 4.00-5.20 [facility] Comment on above: Performed By: #### V ERAB #### MELISA Galvan () [facility] [address] [place] [address] [place] WBC (Bld) [#/Vol] 4.3 x10*3/uL Low 4.4-11.3 [facility] Comment on above: Performed By: #### V ERAB #### MELISA Galvan ([id number]) [facility] ([facility]) [address] [place] [address] Comprehensive metabolic 2000 panelon 03-19-2023 Albumin [Mass/Vol] 3.2 g/dL Low 3.5 - 5.0 g/dL Un [facility] ALP (Bld) [Catalytic activity/Vol] 68 U/L 35 - 125 U/L [facility] ALT [Catalytic activity/Vol] 14 U/L 5 - 40 U/L [facility] Anion gap [Moles/Vol] 13 mmol/L NINF - 19 mmol/L [facility] AST [Catalytic activity/Vol] 27 U/L 5 - 40 U/L [facility] Bilirubin [Mass/Vol] 0.4 mg/dL 0.1 - 1.2 mg/dL [facility] Calcium [Mass/Vol] 8.7 mg/dL 8.5 - 10.4 mg/dL [facility] Chloride [Moles/Vol] 106 mmol/L 97 - 107 mmol/L [facility] CO2 [Moles/Vol] 21 mmol/L Low 24 - 31 mmol/L [facility] Creatinine [Mass/Vol] 0.60 mg/dL 0.40 - 1.60 mg/dL [facility] eGFR - PINF [facility] Comment on above: Calculations of jessica mated GFR are performed using the 2020 CKD-EPI Study Refit equation without the race variable for the IDMS-Traceable creatinine methods. https://jasn.asnjournals.org/content//ASN.10496874 88 Glucose [Mass/Vol] 98 mg/dL 65 - 99 mg/dL [facility] Interpretation and review of laboratory results Abnormal [facility] Potassium [Moles/Vol] 3.7 mmol/L 3.4 - 5.1 mmol/L [facility] Protein [Mass/Vol] 5.7 g/dL Low 5.9 - 7.9 g/dL [facility] Sodium [Moles/Vol] 140 mmol/L 133 - 145 mmol/L [facility] Urea nitrogen [Mass/Vol] 5 mg/dL Low 8 - 25 mg/dL [facility] Albumin [Mass/Vol] 3.2 g/dL Low 3.5-5.0 [facility] Comment on above: Performed By: #### V ERAB #### MELISA Galvan ([id number]) [facility] ([facility]) [address] [place] [address] [place] ALP (Bld) [Catalytic activity/Vol] 68 U/L Normal 35-125 [facility] Comment on above: Performed By: #### V ERAB #### MELISA Galvan ([id number]) [facility] ([facility]) [address] [place] [address] [place] ALT [Catalytic activity/Vol] 14 U/L Normal 5-40 [facility] Comment on above: Performed By: #### V ERAB #### MELISA Galvan ([id number]) [facility] ([facility]) [address] [place] [address] [place] Anion gap [Moles/Vol] 13 mmol/L Normal <=19 [facility] Comment on above: Performed By: #### V ERAB #### MELISA Galvan ([id number]) [facility] ([facility]) [address] [place] [address] [place] AST [Catalytic activity/Vol] 27 U/L Normal 5-40 [facility] Comment on above: Performed By: #### V ERAB #### MELISA Galvan ([id number]) [facility] ([facility]) [address] [place] [address] [place] Bilirubin [Mass/Vol] 0.4 mg/dL Normal 0.1-1.2 [facility] Comment on above: Performed By: #### V ERAB #### MELISA Galvan ([id number]) [facility] ([facility]) [address] [place] [address] [place] Calcium [Mass/Vol] 8.7 mg/dL Normal 8.5-10.4 [facility] Comment on above: Performed By: #### V ERAB #### MELISA ALEXANDRO J ([id number]) [facility] ([facility]) [address] [place] [address] [place] Chloride [Moles/Vol] 106 mmol/L Normal 97-107 [facility] Comment on above: Performed By: #### V ERAB #### MELISA ALEXANDRO J ([id number]) [facility] ([facility]) [address] [place] [address] [place] CO2 [Moles/Vol] 21 mmol/L Low 24-31 [facility] Comment on above: Performed By: #### V ERAB #### MELISA ALEXANDRO J ([id number]) [facility] ([facility]) [address] [place] [address] [place] Creatinine [Mass/Vol] 0.60 mg/dL Normal 0.40-1.60 [facility] Comment on above: Performed By: #### V ERAB #### MELISA ALEXANDRO J ([id number]) [facility] ([facility]) [address] [place] [address] [place] GFR/1.73 sq M.predicted MDRD (S/P/Bld) [Vol rate/Area] mL/min/{1.73_m2} Normal >60 [facility] Comment on above: Result Comment: Calc ulations of estimated GFR are performed using the 2020 CKD-EPI Study Refit equation without the race variable for the IDMS-Traceable creatinine methods. https://jasn.asnjournals.org/content//ASN.40285471 88 Performed By: #### V ERAB #### MELISA ALEXANDRO J ([id number]) [facility] ([facility]) [address] [place] [address] [place] Glucose [Mass/Vol] 98 mg/dL Normal 65-99 [facility] Comment on above: Performed By: #### V ERAB #### MELISA Galvan ([id number]) [facility] ([facility]) [address] [place] [address] [place] Potassium [Moles/Vol] 3.7 mmol/L Normal 3.4-5.1 [facility] Comment on above: Performed By: #### V ERAB #### MELISA Galvan ([id number]) [facility] [address] [place] [address] [place] Protein [Mass/Vol] 5.7 g/dL Low 5.9-7.9 [facility] Comment on above: Performed By: #### V ERAB #### MELISA Galvan ([id number]) [facility] ([facility]) [address] [place] [address] [place] Sodium [Moles/Vol] 140 mmol/L Normal 133-145 [facility] Comment on above: Performed By: #### V ERAB #### MELISA POOLEO Mandy ([id number]) [facility] [address] [place] [address] [place] Urea nitrogen [Mass/Vol] 5 mg/dL Low 8-25 [facility] Comment on above: Performed By: #### V ERAB #### MELISA Galvan ([id number]) [facility] ([facility]) [address] [place] [address] [place] EGDon 03-19-2023 Esophagogastroduode noscopy Table formatting from the original result was not included. Normal [facility] EGD Study observation Narrat iveon 03-19-2023 Table [...] Tomasa Keyes RN 03/19/2023 1431 Procedure Location [address] [address] Referring Provider Generic Provider [place] No address on file Procedure Provider No name on file [facility] Work Phone: Radiology Study observation (narrative) [facility] Work Phone: EGD Study observation Narrat iveOrdered By: Eve Agosto on 03-19-2023 [facility] Work Phone: Home Health Recordson 2023 Home Health Records [id number] 90#1.00TIFF Prabhakar [facility] Surgical pathology studyon 0 03-19-2023 Surgical pathology study Pathology report.total SEE COMMENT Surgical Pathology Case: [id number] Authorizing Provider: Eve Agosto MD Collected: 03/19/2023 1431 Ordering Location: [facility] Received: 03/19/[address] [place] [address] Pathologist: Melisa Mc MD Specimen: STOMACH ANTRUM [...] is submitted in toto in 1 cassette. [facility] Gross dissection performed at: [place] [address] Normal [facility] CBC panel Auto (Bld)on 03-18 Erythrocyte distribution width (RBC) [Ratio] 12.5 % 11.5 - 14.5 % [facility] Hematocrit (Bld) [Volume fraction] 37.2 % 36.0 - 46.0 % [facility] Hemoglobin (Bld) [Mass/Vol] 12.1 g/dL 12.0 - 16.0 g/dL [facility] Interpretation and review of laboratory results Abnormal [facility] MCH (RBC) [Entitic mass] 30.0 pg 26.0 - 34.0 pg [facility] MCHC (RBC) [Mass/Vol] 32.5 g/dL 32.0 - 36.0 g/dL [facility] MCV (RBC) [Entitic vol] 92 fL 80 - 100 fL [facility] Nucleated RBC/100 WBC (Bld) [Ratio] 0.0 % [facility] Platelets (Bld) [#/Vol] 266 10*3/uL [facility] RBC (Bld) [#/Vol] 4.03 10*6/uL [facility] WBC (Bld) [#/Vol] 4.0 10*3/uL Low [facility] Erythrocyte distribution width (RBC) [Ratio] 12.5 % Normal 11.5-14.5 [facility] Comment on above: Performed By: #### 5 8410-2 ####MELISA Galvan ([id number])[facility] ()[address] [place] [address] Hematocrit (Bld) [Volume fraction] 37.2 % Normal 36.0-46.0 [facility] Comment on above: Performed By: #### 5 8410-2 ####MELISA Galvan ([id number])[facility] ()[address] [place] [address] Hemoglobin (Bld) [Mass/Vol] 12.1 g/dL Normal 12.0-16.0 [facility] Comment on above: Performed By: #### 5 8410-2 ####MELISA Galvan ([id number])[facility] ()[address] [place] [address] MCH (RBC) [Entitic mass] 30.0 pg Normal 26.0-34.0 [facility] Comment on above: Performed By: #### 5 8410-2 ####MELISA Galvan ([id number])[facility] ()[address] [place] [address] MCHC (RBC) [Mass/Vol] 32.5 g/dL Normal 32.0-36.0 [facility] Comment on above: Performed By: #### 5 8410-2 ####MELISA Galvan ([id number])[facility] ()[address] [place] [address] MCV (RBC) [Entitic vol] 92 fL Normal 80-100 [facility] Comment on above: Performed By: #### 5 8410-2 ####MELISA Galvan ([id number])[facility] ()[address] [place] [address] Nucleated RBC/100 WBC (Bld) [Ratio] 0.0 /100 WBCs Normal 0.0-0.0 [facility] Comment on above: Performed By: #### 5 8410-2 ####MELISA Galvan ([id number])[facility] ()[address] [place] [address] Platelets (Bld) [#/Vol] 266 x10*3/uL Normal 150-450 [facility] Comment on above: Performed By: #### 5 8410-2 ####MELISA Galvan ([id number])[facility] ()[address] [place] [address] RBC (Bld) [#/Vol] 4.03 x10*6/uL Normal 4.00-5.20 [facility] Comment on above: Performed By: #### 5 8410-2 ####MELISA Galvan ([id number])[facility] ()[address] [place] [address] WBC (Bld) [#/Vol] 4.0 x10*3/uL Low 4.4-11.3 [facility] Comment on above: Performed By: #### 5 8410-2 ####MELISA Galvan ([id number])[facility] ()[address] [place] [address] Comprehensive metabolic 2000 panelon 03-18-2023 Albumin [Mass/Vol] 3.0 g/dL Low 3.5 - 5.0 g/dL [facility] ALP (Bld) [Catalytic activity/Vol] 66 U/L 35 - 125 U/L [facility] ALT [Catalytic activity/Vol] 17 U/L 5 - 40 U/L [facility] Anion gap [Moles/Vol] 10 mmol/L NINF - 19 mmol/L [facility] AST [Catalytic activity/Vol] 33 U/L 5 - 40 U/L [facility] Bilirubin [Mass/Vol] 0.3 mg/dL 0.1 - 1.2 mg/dL [facility] Calcium [Mass/Vol] 8.4 mg/dL Low 8.5 - 10.4 mg/dL [facility] Chloride [Moles/Vol] 108 mmol/L High 97 - 107 mmol/L [facility] CO2 [Moles/Vol] 19 mmol/L Low 24 - 31 mmol/L [facility] Creatinine [Mass/Vol] 0.80 mg/dL 0.40 - 1.60 mg/dL [facility] eGFR - PINF [facility] Comment on above: Calculations of jessica mated GFR are performed using the 2020 CKD-EPI Study Refit equation without the race variable for the IDMS-Traceable creatinine methods. https://jasn.asnjournals.org/content/early//ASN.27072294 88 Glucose [Mass/Vol] 79 mg/dL 65 - 99 mg/dL [facility] Interpretation and review of laboratory results Abnormal [facility] Potassium [Moles/Vol] 3.8 mmol/L 3.4 - 5.1 mmol/L [facility] Protein [Mass/Vol] 5.7 g/dL Low 5.9 - 7.9 g/dL [facility] Sodium [Moles/Vol] 137 mmol/L 133 - 145 mmol/L [facility] Urea nitrogen [Mass/Vol] 5 mg/dL Low 8 - 25 mg/dL [facility] Albumin [Mass/Vol] 3.0 g/dL Low 3.5-5.0 [facility] Comment on above: Performed By: #### 2 4323-8 ####MELISA Galvan ([id number])[facility] ()[address] [place] [address] ALP (Bld) [Catalytic activity/Vol] 66 U/L Normal 35-125 [facility] Comment on above: Performed By: #### 2 4323-8 ####MELISA Galvan (38059)[facility] ()[address] [place] [address] ALT [Catalytic activity/Vol] 17 U/L Normal 5-40 [facility] Comment on above: Performed By: #### 2 4323-8 ####MELISA Galvan (15240)[facility] ()[address] [place] [address] Anion gap [Moles/Vol] 10 mmol/L Normal <=19 [facility] Comment on above: Performed By: #### 2 432-8 ####MELISA Galvan (46641)[facility] ()[address] [place] [address] AST [Catalytic activity/Vol] 33 U/L Normal 5-40 [facility] Comment on above: Performed By: #### 2 432-8 ####MELISA Galvan (85426)[facility] ()[address] [place] [address] Bilirubin [Mass/Vol] 0.3 mg/dL Normal 0.1-1.2 [facility] Comment on above: Performed By: #### 2 4323-8 ####MELISA Galvan ([id number])[facility] ()[address] [place] [address] Calcium [Mass/Vol] 8.4 mg/dL Low 8.5-10.4 [facility] Comment on above: Performed By: #### 2 4323-8 ####MELISA Galvan ([id number])[facility] ()[address] [place] [address] Chloride [Moles/Vol] 108 mmol/L High 97-107 [facility] Comment on above: Performed By: #### 2 4323-8 ####MELISA Galvan (77727)[facility] ()[address] [place] [address] CO2 [Moles/Vol] 19 mmol/L Low 24-31 [facility] Comment on above: Performed By: #### 2 4323-8 ####MELISA Galvan (52963)[facility] ()[address] [place] [address] Creatinine [Mass/Vol] 0.80 mg/dL Normal 0.40-1.60 [facility] Comment on above: Performed By: #### 2 4323-8 ####MELISA Galvan (14046)[facility] ()[address] [place] [address] GFR/1.73 sq M.predicted MDRD (S/P/Bld) [Vol rate/Area] mL/min/{1.73_m2} Normal >60 [facility] Comment on above: Result Comment: Calc ulations of estimated GFR are performed using the 2020 CKD-EPI Study Refit equation without the race variable for the IDMS-Traceable creatinine methods. https://jasn.asnjournals.org/content/early/ASN.26455029 88 Performed By: #### 2 4323-8 ####MELISA Galvan (64237)[facility] ()[address] [place] [address] Glucose [Mass/Vol] 79 mg/dL Normal 65-99 [facility] Comment on above: Performed By: #### 2 4323-8 ####MELISA Galvan (28602)[facility] ()[address] [place] [address] Potassium [Moles/Vol] 3.8 mmol/L Normal 3.4-5.1 [facility] Comment on above: Performed By: #### 2 4323-8 ####MELISA Galvan (07383)[facility] ()[address] [place] [address] Protein [Mass/Vol] 5.7 g/dL Low 5.9-7.9 [facility] Comment on above: Performed By: #### 2 4323-8 ####MELISA Galvan (00736)[facility] ()[address] [place] [address] Sodium [Moles/Vol] 137 mmol/L Normal 133-145 [facility] Comment on above: Performed By: #### 2 4323-8 ####MELISA Galvan (85682)[facility] ()[address] [place] [address] Urea nitrogen [Mass/Vol] 5 mg/dL Low 8-25 [facility] Comment on above: Performed By: #### 2 4323-8 ####MELISA Galvan (90992)[facility] ()[address] [place] [address] CBC panel Auto (Bld)on 03-17 Erythrocyte distribution width (RBC) [Ratio] 12.5 % 11.5 - 14.5 % [facility] Hematocrit (Bld) [Volume fraction] 34.9 % Low 36.0 - 46.0 % [facility] Hemoglobin (Bld) [Mass/Vol] 11.5 g/dL Low 12.0 - 16.0 g/dL [facility] Interpretation and review of laboratory results Abnormal [facility] MCH (RBC) [Entitic mass] 30.2 pg 26.0 - 34.0 pg [facility] MCHC (RBC) [Mass/Vol] 33.0 g/dL 32.0 - 36.0 g/dL [facility] MCV (RBC) [Entitic vol] 92 fL 80 - 100 fL [facility] Nucleated RBC/100 WBC (Bld) [Ratio] 0.0 % [facility] Platelets (Bld) [#/Vol] 268 10*3/uL [facility] RBC (Bld) [#/Vol] 3.81 10*6/uL Low [facility] WBC (Bld) [#/Vol] 5.0 10*3/uL [facility] Erythrocyte distribution width (RBC) [Ratio] 12.5 % Normal 11.5-14.5 [facility] Comment on above: Performed By: #### 5 8410-2 ####MELISA Galvan (54979)[facility] ()[address] [place] [address] Hematocrit (Bld) [Volume fraction] 34.9 % Low 36.0-46.0 [facility] Comment on above: Performed By: #### 5 8410-2 ####MELISA Galvan ()[facility] ()[address] [place] [address] Hemoglobin (Bld) [Mass/Vol] 11.5 g/dL Low 12.0-16.0 [facility] Comment on above: Performed By: #### 5 8410-2 ####MELISA Galvan (31139)[facility] ()[address] [place] [address] MCH (RBC) [Entitic mass] 30.2 pg Normal 26.0-34.0 [facility] Comment on above: Performed By: #### 5 8410-2 ####MELISA Galvan ([id number])[facility] ()[address] [place] [address] MCHC (RBC) [Mass/Vol] 33.0 g/dL Normal 32.0-36.0 [facility] Comment on above: Performed By: #### 5 8410-2 ####MELISA Galvan (36802)[facility] ()[address] [place] [address] MCV (RBC) [Entitic vol] 92 fL Normal 80-100 [facility] Comment on above: Performed By: #### 5 8410-2 ####MELISA Galvan ([id number])[facility] ()[address] [place] [address] Nucleated RBC/100 WBC (Bld) [Ratio] 0.0 /100 WBCs Normal 0.0-0.0 [facility] Comment on above: Performed By: #### 5 8410-2 ####MELISA Galvan (70652)[facility] ()[address] [place] [address] Platelets (Bld) [#/Vol] 268 x10*3/uL Normal 150-450 [facility] Comment on above: Performed By: #### 5 8410-2 ####MELISA Galvan (77106)[facility] ()[address] [place] [address] RBC (Bld) [#/Vol] 3.81 x10*6/uL Low 4.00-5.20 [facility] Comment on above: Performed By: #### 5 8410-2 ####MELISA Galvan ([id number])[facility] ()[address] [place] [address] WBC (Bld) [#/Vol] 5.0 x10*3/uL Normal 4.4-11.3 [facility] Comment on above: Performed By: #### 5 8410-2 ####MELISA Galvan ([id number])[facility] ()[address] [place] [address] Comprehensive metabolic 2000 panelon 03-17-2023 Albumin [Mass/Vol] 3.3 g/dL Low 3.5 - 5.0 g/dL [facility] ALP (Bld) [Catalytic activity/Vol] 61 U/L 35 - 125 U/L [facility] ALT [Catalytic activity/Vol] 17 U/L 5 - 40 U/L [facility] Anion gap [Moles/Vol] 10 mmol/L NINF - 19 mmol/L [facility] AST [Catalytic activity/Vol] 31 U/L 5 - 40 U/L [facility] Bilirubin [Mass/Vol] 0.2 mg/dL 0.1 - 1.2 mg/dL [facility] Calcium [Mass/Vol] 8.1 mg/dL Low 8.5 - 10.4 mg/dL [facility] Chloride [Moles/Vol] 112 mmol/L High 97 - 107 mmol/L [facility] CO2 [Moles/Vol] 21 mmol/L Low 24 - 31 mmol/L [facility] Creatinine [Mass/Vol] 0.80 mg/dL 0.40 - 1.60 mg/dL [facility] eGFR - PINF [facility] Comment on above: Calculations of jessica mated GFR are performed using the 2020 CKD-EPI Study Refit equation without the race variable for the IDMS-Traceable creatinine methods. https://jasn.asnjournals.org/content/early//ASN.51893954 88 Glucose [Mass/Vol] 122 mg/dL High 65 - 99 mg/dL [facility] Interpretation and review of laboratory results Abnormal [facility] Potassium [Moles/Vol] 4.3 mmol/L 3.4 - 5.1 mmol/L [facility] Protein [Mass/Vol] 5.7 g/dL Low 5.9 - 7.9 g/dL [facility] Sodium [Moles/Vol] 143 mmol/L 133 - 145 mmol/L [facility] Urea nitrogen [Mass/Vol] 5 mg/dL Low 8 - 25 mg/dL [facility] Albumin [Mass/Vol] 3.3 g/dL Low 3.5-5.0 [facility] Comment on above: Performed By: #### 2 4323-8 ####MELISA Galvan ([id number])[facility] ()[address] [place] [address] ALP (Bld) [Catalytic activity/Vol] 61 U/L Normal 35-125 [facility] Comment on above: Performed By: #### 2 4323-8 ####MELISA Galvan ([id number])[facility] ()[address] [place] [address] ALT [Catalytic activity/Vol] 17 U/L Normal 5-40 [facility] Comment on above: Performed By: #### 2 4323-8 ####MELISA Galvan ([id number])[facility] ()[address] [place] [address] Anion gap [Moles/Vol] 10 mmol/L Normal <=19 [facility] Comment on above: Performed By: #### 2 4323-8 ####MELISA Galvan ([id number])[facility] ()[address] [place] [address] AST [Catalytic activity/Vol] 31 U/L Normal 5-40 [facility] Comment on above: Performed By: #### 2 432-8 ####MELISA Galvan ([id number])[facility] ()[address] [place] [address] Bilirubin [Mass/Vol] 0.2 mg/dL Normal 0.1-1.2 [facility] Comment on above: Performed By: #### 2 432-8 ####MELISA Galvan ([id number])[facility] ()[address] [place] [address] Calcium [Mass/Vol] 8.1 mg/dL Low 8.5-10.4 [facility] Comment on above: Performed By: #### 2 4323-8 ####MELISA Galvan ([id number])[facility] ()[address] [place] [address] Chloride [Moles/Vol] 112 mmol/L High 97-107 [facility] Comment on above: Performed By: #### 2 4323-8 ####MELISA Galvan ([id number])[facility] ()[address] [place] [address] CO2 [Moles/Vol] 21 mmol/L Low 24-31 [facility] Comment on above: Performed By: #### 2 4323-8 ####MELISA Galvan ([id number])[facility] ()[address] [place] [address] Creatinine [Mass/Vol] 0.80 mg/dL Normal 0.40-1.60 [facility] Comment on above: Performed By: #### 2 4323-8 ####MELISA Galvan ([id number])[facility] ()[address] [place] [address] GFR/1.73 sq M.predicted MDRD (S/P/Bld) [Vol rate/Area] mL/min/{1.73_m2} Normal >60 [facility] Comment on above: Result Comment: Calc ulations of estimated GFR are performed using the 2020 CKD-EPI Study Refit equation without the race variable for the IDMS-Traceable creatinine methods. https://jasn.asnjournals.org/content/early//ASN.17874703 88 Performed By: #### 2 4323-8 ####MELISA Galvan ([id number])[facility] ()[address] [place] [address] Glucose [Mass/Vol] 122 mg/dL High 65-99 [facility] Comment on above: Performed By: #### 2 4323-8 ####MELISA Galvan ([id number])[facility] ()[address] [place] [address] Potassium [Moles/Vol] 4.3 mmol/L Normal 3.4-5.1 [facility] Comment on above: Performed By: #### 2 4323-8 ####MELISA Galvan ([id number])[facility] ()[address] [place] [address] Protein [Mass/Vol] 5.7 g/dL Low 5.9-7.9 [facility] Comment on above: Performed By: #### 2 4323-8 ####MELISA Galvan ([id number])[facility] ()[address] [place] [address] Sodium [Moles/Vol] 143 mmol/L Normal 133-145 [facility] Comment on above: Performed By: #### 2 4323-8 ####MELISA Galvan ([id number])[facility] (MW)[address] [place] [address] Urea nitrogen [Mass/Vol] 5 mg/dL Low 8-25 [facility] Comment on above: Performed By: #### 2 4323-8 ####MELISA MC Mandy ([id number])[facility] ()[address] [facility] [address] FL UPPER GI W DOUBLE CONTRAS T W SMALL BOWEL FOLLOW THROUGHon 03-17-2023 FL UPPER GI W DOUBLE CONTRAST W SMALL BOWEL FOLLOW THROUGH Interpreted By: Corie Garza, ADDENDUM: The exam was a single contrast upper GI with small-bowel follow-through Signed by: Corie Garza 04/01/2023 12:58 PM -------- ORIGINAL REPORT -------- Dictation workstation: [id number] Interpreted By: Corie Garza, STUDY: FL UPPER GI W DOUBLE CONTRAST W SMALL BOWEL FOLLOW THROUGH; 03/17/2023 4:40 pm INDICATION: Signs/Symptoms:abdo kerry pain. COMPARISON: None. ACCESSION NUMBER(S): [id number] ORDERING CLINICIAN: TIFFANIE MENDEZ TECHNIQUE: Multiple fluoroscopic spot images were obtained during a single contrast upper GI with KUB. Total fluoroscopy time: 1 minute 32 seconds Radiation exposure (Reference Air Kerma): 99.36 mGy Images: 2 spot images 7 series and 2 delayed AP views of the abdomen FINDINGS: Training Systems Officer images demonstrate postsurgical changes from previous Tan-en-Y [...] Corie Garza 03/17/2023 5:00 PM Dictation workstation: [id number] [facility] RF Upper gastrointestinal tr act and Small bowel Views W air contrast PO and W barium contrast Mary 03-17-2023 Postsurgical changes from gastric bypass. No evidence for obstruction.. MACRO: none Signed by: Corie Garza 03/17/2023 5:00 PM Dictation workstation: [id number] [facility]ODAL Interpreted By: Corie Garza, STUDY: FL UPPER GI W DOUBLE CONTRAST W SMALL BOWEL FOLLOW THROUGH; 03/17/2023 4:40 pm INDICATION: Signs/Symptoms:abdo kerry pain. COMPARISON: None. ACCESSION NUMBER(S): [id number] ORDERING CLINICIAN: TIFFANIE MENDEZ TECHNIQUE: Multiple fluoroscopic spot images were obtained during a single contrast upper GI with KUB. Total fluoroscopy time: 1 minute 32 seconds Radiation exposure (Reference Air Kerma): 99.36 mGy Images: 2 spot images 7 series and 2 delayed AP views of the abdomen FINDINGS: Training Systems Officer images demonstrate postsurgical changes from previous Tan-en-Y [...] Signs/Symptoms:abdo kerry pain. COMPARISON: None. ACCESSION NUMBER(S): [id number] ORDERING CLINICIAN: TIFFANIE MENDEZ TECHNIQUE: Multiple fluoroscopic spot images were obtained during a single contrast upper GI with KUB. Total fluoroscopy time: 1 minute 32 seconds Radiation exposure (Reference Air Kerma): 99.36 mGy Images: 2 spot images 7 series and 2 delayed AP views of the abdomen FINDINGS: Training Systems Officer images demonstrate postsurgical changes from previous Tan-en-Y [...] Corie Garza 03/17/2023 5:00 PM Dictation workstation: [id number] [facility] Work Phone: [facility] Work Phone: Radiology Study observation (narrative) [facility] Work Phone: XR CHEST 1 VIEWon 03-17-2023 XR CHEST 1 VIEW Interpreted By: Nya Ahmadi, STUDY: XR CHEST 1 VIEW 03/17/2023 7:09 pm INDICATION: Signs/Symptoms:S/p NG placement COMPARISON: 03/17/2023 done at 2:05 p.m. ACCESSION NUMBER(S): [id number] ORDERING CLINICIAN: TIFFANIE MENDEZ TECHNIQUE: AP erect view of the chest FINDINGS: The nasogastric tube has not changed in placement with the tip seen within the proximal thoracic esophagus. Heart and mediastinum are normally visualized. Lungs are clear. IMPRESSION: Distal tip of nasogastric tube in proximal thoracic esophagus just above the aortic arch. Signed by: Nya Ahmadi 03/17/2023 8:19 PM Dictation workstation: [id number] [facility] XR CHEST 1 VIEW Interpreted By: Corie Garza, STUDY: XR CHEST 1 VIEW; 03/17/2023 12:41 pm INDICATION: Signs/Symptoms:Stat us post NG tube placement. COMPARISON: None available ACCESSION NUMBER(S): [id number] ORDERING CLINICIAN: TIFFANIE MENDEZ FINDINGS: RESULT: Nasogastric [...] Corie Garza 03/17/2023 4:19 PM Dictation workstation: [id number] [facility] XR Chest Single viewon 03-17 Distal tip of nasogastric tube in proximal thoracic esophagus just above the aortic arch. Signed by: Nya Ahmadi 03/17/2023 8:19 PM Dictation workstation: [id number] [facility] Interpreted By: Nya Ahmadi, STUDY: XR CHEST 1 VIEW 03/17/2023 7:09 pm INDICATION: Signs/Symptoms:S/p NG placement COMPARISON: 03/17/2023 done at 2:05 p.m. ACCESSION NUMBER(S): [id number] ORDERING CLINICIAN: TIFFANIE MENDEZ TECHNIQUE: AP erect [...] 03/17/2023 done at 2:05 p.m. ACCESSION NUMBER(S): [id number] ORDERING CLINICIAN: TIFFANIE MENDEZ TECHNIQUE: AP erect view of the chest FINDINGS: The nasogastric tube has not changed in placement with the tip seen within the proximal thoracic esophagus. Heart and mediastinum are normally visualized. Lungs are clear. IMPRESSION: Distal tip of nasogastric tube in proximal thoracic esophagus just above the aortic arch. Signed by: Nya Ahmadi 03/17/2023 8:19 PM Dictation workstation: [id number] [facility] Work Phone: Radiology Study observation (narrative) [facility] Work Phone: Nasogastric tube tip is noted at the level of the upper esophagus at the level of the clavicular heads. The nasogastric tube removed itself from the patient soon after this exam. Signed by: Corie Garza 03/17/2023 4:19 PM Dictation workstation: [id number] [facility]AL Interpreted By: Corie Garza, STUDY: XR CHEST 1 VIEW; 03/17/2023 12:41 pm INDICATION: Signs/Symptoms:Stat us post NG tube placement. COMPARISON: None available ACCESSION NUMBER(S): [id number] ORDERING CLINICIAN: TIFFANIE MENDEZ FINDINGS: RESULT: Nasogastric tube is noted with tip in the upper esophagus at the level of the clavicular heads. The cardiac silhouette is within normal limits for size. Mediastinal contours are unremarkable. The lungs demonstrate no infiltrate or area of atelectasis. The osseous structures are unremarkable. [facility] Corie Garza MD - 03/17/2023 Interpreted By: Greg, Corie, STUDY: XR CHEST 1 VIEW; 03/17/2023 12:41 pm INDICATION: Signs/Symptoms:Stat us post NG tube placement. COMPARISON: None available ACCESSION NUMBER(S): [id number] ORDERING CLINICIAN: TIFFANIE MENDEZ FINDINGS: RESULT: Nasogastric [...] Corie Garza 03/17/2023 4:19 PM Dictation workstation: [id number] [facility] Work Phone: [facility] Work Phone: Radiology Study observation (narrative) [facility] Work Phone: XR Chest Single viewOrdered By: Nya Ahmadi on 03-17-2023 [facility] Work Phone: BMPon 03-16-2023 Anion gap [Moles/Vol] 11 mmol/L Normal 6-16 [facility] Comment on above: Performed By: #### 2 252644, [id number], 3301919, 6454401, 1149165, 2104450 ####[facility] [address] [place] [address] BUN/Creat Ratio 10 No Units Normal 10-20 [facility] Comment on above: Performed By: #### 2 973322, 78171740, 6945752, 6664508, 6596676, 0470845 ####[facility] [address] [place] [address] Calcium [Mass/Vol] 8.5 mg/dL Low 8.9-11.1 [facility] Comment on above: Performed By: #### 2 227902, 79718924, 6282546, 6805529, 7570431, 4988954 ####[facility] [address] [place] [address] Chloride [Moles/Vol] 109 mmol/L Normal 101-111 [facility] Comment on above: Performed By: #### 2 717691, 01984610, 7251046, 2853542, 2732854, 8326923 ####[facility] [address] [place] [address] CO2 [Moles/Vol] 24 mmol/L Normal 21-31 [facility] Comment on above: Performed By: #### 2 706564, 20393311, 4518561, 4415719, 8230393, 2482652 ####[facility] [address] [place] [address] Creatinine [Mass/Vol] 0.8 mg/dL Normal 0.5-1.3 [facility] Comment on above: Performed By: #### 2 288906, 22558861, 7765784, 7741679, 7134797, 1251107 ####[facility] [address] [place] [address] Glucose [Mass/Vol] 77 mg/dL Normal 55-199 [facility] Comment on above: Performed By: #### 2 149272, 95167620, 0361294, 9122539, 3698276, 6894517 ####[facility] [address] [place] [address] Potassium [Moles/Vol] 3.7 mmol/L Normal 3.5-5.3 [facility] Comment on above: Performed By: #### 2 690301, 75194117, 0633605, 5925733, 8708466, 3296015 ####[facility] [address] [place] [address] Sodium [Moles/Vol] 140 mmol/L Normal 135-145 [facility] Comment on above: Performed By: #### 2 497246, 76760676, 7516559, 9398242, 6761053, 9784380 ####[facility] [address] [place] [address] Urea nitrogen [Mass/Vol] 8 mg/dL Normal 5-21 [facility] Comment on above: Performed By: #### 2 383425, 71011721, 8089131, 5324534, 9762576, 0339362 ####[facility] [address] [place] [address] CBC W Auto Differential pane l (Bld)on 03-16-2023 Basophils (Bld) [#/Vol] 0.07 10*3/uL [facility] Basophils/100 WBC (Bld) 1.4 % 0.0 - 2.0 % [facility] Eosinophils (Bld) [#/Vol] 0.50 10*3/uL [facility] Eosinophils/100 WBC (Bld) 9.9 % 0.0 - 6.0 % [facility] Erythrocyte distribution width (RBC) [Ratio] 12.3 % 11.5 - 14.5 % [facility] Hematocrit (Bld) [Volume fraction] 33.4 % Low 36.0 - 46.0 % [facility] Hemoglobin (Bld) [Mass/Vol] 10.8 g/dL Low 12.0 - 16.0 g/dL [facility] Immature granulocytes (Bld) [#/Vol] 0.01 10*3/uL [facility] Immature granulocytes/100 WBC (Bld) 0.2 % 0.0 - 0.9 % [facility] Comment on above: Immature Granulocyte Count (IG) includes promyelocytes, myelocytes and metamyelocytes but does not include bands. Percent differential counts (%) should be interpreted in the context of the absolute cell counts (cells/UL). Interpretation and review of laboratory results Abnormal [facility] Lymphocytes (Bld) [#/Vol] 1.70 10*3/uL [facility] Lymphocytes/100 WBC (Bld) 33.7 % 13.0 - 44.0 % [facility] MCH (RBC) [Entitic mass] 30.5 pg 26.0 - 34.0 pg [facility] MCHC (RBC) [Mass/Vol] 32.3 g/dL 32.0 - 36.0 g/dL [facility] MCV (RBC) [Entitic vol] 94 fL 80 - 100 fL [facility] Monocytes (Bld) [#/Vol] 0.31 10*3/uL [facility] Monocytes/100 WBC (Bld) 6.2 % 2.0 - 10.0 % [facility] Neutrophils (Bld) [#/Vol] 2.45 10*3/uL [facility] Comment on above: Percent differential counts (%) should be interpreted in the context of the absolute cell counts (cells/uL). Neutrophils/100 WBC (Bld) 48.6 % 40.0 - 80.0 % [facility] Nucleated RBC/100 WBC (Bld) [Ratio] 0.0 % [facility] Platelets (Bld) [#/Vol] 273 10*3/uL [facility] RBC (Bld) [#/Vol] 3.54 10*6/uL [facility] WBC (Bld) [#/Vol] 5.0 10*3/uL [facility] Basophils (Bld) [#/Vol] 0.07 x10*3/uL Normal 0.00-0.10 [facility] Comment on above: Performed By: #### 5 7021-8 ####MELISA Galvan (26960)[facility] ()[address] [facility] [place] [place] [address] Basophils/100 WBC (Bld) 1.4 % Normal 0.0-2.0 [facility] Comment on above: Performed By: #### 5 7021-8 ####MELISA Galvan (88291)[facility] ()[address] [place] [address] Eosinophils (Bld) [#/Vol] 0.50 x10*3/uL Normal 0.00-0.70 [facility] Comment on above: Performed By: #### 5 7021-8 ####MELISA Galvan (92143)[facility] ()[address] [place] [address] Eosinophils/100 WBC (Bld) 9.9 % Normal 0.0-6.0 [facility] Comment on above: Performed By: #### 5 7021-8 ####MELISA Galvan (61648)[facility] ()[address] [place] [address] Erythrocyte distribution width (RBC) [Ratio] 12.3 % Normal 11.5-14.5 [facility] Comment on above: Performed By: #### 5 7021-8 ####MELISA Galvan (00999)[facility] ()[address] [place] [address] Hematocrit (Bld) [Volume fraction] 33.4 % Low 36.0-46.0 [facility] Comment on above: Performed By: #### 5 7021-8 ####MELISA Galvan (12210)[facility] ()[address] [place] [address] Hemoglobin (Bld) [Mass/Vol] 10.8 g/dL Low 12.0-16.0 [facility] Comment on above: Performed By: #### 5 7021-8 ####MELISA Galvan (97802)[facility] ()[address] [place] [address] Immature granulocytes (Bld) [#/Vol] 0.01 x10*3/uL Normal 0.00-0.70 [facility] Comment on above: Performed By: #### 5 7021-8 ####MELISA Galvan (63840)[facility] ()[address] [place] [address] Immature granulocytes/100 WBC (Bld) 0.2 % Normal 0.0-0.9 [facility] Comment on above: Result Comment: Janny ture Granulocyte Count (IG) includes promyelocytes, myelocytes and metamyelocytes but does not include bands. Percent differential counts (%) should be interpreted in the context of the absolute cell counts (cells/UL). Performed By: #### 5 7021-8 ####MELISA Galvan (51579)[facility] ()[address] [place] [address] Lymphocytes (Bld) [#/Vol] 1.70 x10*3/uL Normal 1.20-4.80 [facility] Comment on above: Performed By: #### 5 7021-8 ####MELISA Galvan (42694)[facility] ()[address] [place] [address] Lymphocytes/100 WBC (Bld) 33.7 % Normal 13.0-44.0 [facility] Comment on above: Performed By: #### 5 7021-8 ####MELISA Galvan ([id number])[facility] ()[address] [place] [address] MCH (RBC) [Entitic mass] 30.5 pg Normal 26.0-34.0 [facility] Comment on above: Performed By: #### 5 7021-8 ####MELISA Galvan (18571)[facility] ()[address] [place] [address] MCHC (RBC) [Mass/Vol] 32.3 g/dL Normal 32.0-36.0 [facility] Comment on above: Performed By: #### 5 7021-8 ####MELISA Galvan ([id number])[facility] ()[address] [place] [address] MCV (RBC) [Entitic vol] 94 fL Normal 80-100 [facility] Comment on above: Performed By: #### 5 7021-8 ####MELISA Galvan (02062)[facility] ()[address] [place] [address] Monocytes (Bld) [#/Vol] 0.31 x10*3/uL Normal 0.10-1.00 [facility] Comment on above: Performed By: #### 5 7021-8 ####MELISA Galvan (14853)[facility] ()[address] [place] [address] Monocytes/100 WBC (Bld) 6.2 % Normal 2.0-10.0 [facility] Comment on above: Performed By: #### 5 7021-8 ####MELISA Galvan (13471)[facility] ()[address] [place] [address] Neutrophils (Bld) [#/Vol] 2.45 x10*3/uL Normal 1.20-7.70 [facility] Comment on above: Result Comment: Perc ent differential counts (%) should be interpreted in the context of the absolute cell counts (cells/uL). Performed By: #### 5 7021-8 ####MELISA Galvan (37368)[facility] ()[address] [place] [address] Neutrophils/100 WBC (Bld) 48.6 % Normal 40.0-80.0 [facility] Comment on above: Performed By: #### 5 7021-8 ####MELISA Galvan (27929)[facility] ()[address] [place] [address] Nucleated RBC/100 WBC (Bld) [Ratio] 0.0 /100 WBCs Normal 0.0-0.0 [facility] Comment on above: Performed By: #### 5 7021-8 ####MELISA Galvan (18430)[facility] ()[address] [place] [address] Platelets (Bld) [#/Vol] 273 x10*3/uL Normal 150-450 [facility] Comment on above: Performed By: #### 5 7021-8 ####MELISA Galvan (70152)[facility] ()[address] [place] [address] RBC (Bld) [#/Vol] 3.54 x10*6/uL Low 4.00-5.20 [facility] Comment on above: Performed By: #### 5 7021-8 ####MELISA Galvan ([id number])[facility] ()[address] [place] [address] WBC (Bld) [#/Vol] 5.0 x10*3/uL Normal 4.4-11.3 [facility] Comment on above: Performed By: #### 5 7021-8 ####MELISA POOLESarwat Galvan (20860)[facility] (MW)[address] [place] [address] CBC w/ Auto Diffon 4 Basophil Absolute 0.1 E9/L Normal 0.0-0.2 [facility] Comment on above: Performed By: #### 2 160302, 35401096, 2326534, 1571624, 8620373, 9671114 ####[facility] [address] [place] [address] Basophils/100 WBC (Bld) 2.3 % High 0.0-2.0 [facility] Comment on above: Performed By: #### 2 285374, 16680235, 5833310, 7200669, 9805326, 8342792 ####[facility] [address] [place] [address] Eos Absolute 0.5 E9/L Normal 0.0-0.5 [facility] Comment on above: Performed By: #### 2 212969, 90848407, 2847652, 6413954, 7622713, 2424747 ####[address] [place] [address] Eosinophils/100 WBC (Bld) 10.3 % High 0.0-8.0 [facility] Comment on above: Performed By: #### 2 297085, 82907090, 7937301, 6487393, 5263732, 3958548 ####[facility] [address] [place] [address] Erythrocyte distribution width (RBC) [Ratio] 13.2 % Normal 10.9-14.2 [facility] Comment on above: Performed By: #### 2 284643, 96101760, 2798341, 3290124, 1305320, 1367324 ####[address] [address] Hematocrit (Bld) [Volume fraction] 38.0 % Normal 34.0-46.0 [facility] Comment on above: Performed By: #### 2 975896, 71970169, 7415847, 7744732, 0572039, 6267568 ####[address] [address] Hemoglobin (Bld) [Mass/Vol] 12.5 g/dL Normal 12.0-16.0 [facility] Comment on above: Performed By: #### 2 135467, 59744829, 9076790, 1741403, 7230157, 0895287 ####[address] [address] Lymph Absolute 1.5 E9/L Normal 1.0-4.0 [facility] Comment on above: Performed By: #### 2 640403, 61780429, 8366281, 6224267, 5462719, 1795833 ####[address] [address] Lymphocytes/100 WBC (Bld) 32.0 % Normal 14.0-50.0 [facility] Comment on above: Performed By: #### 2 877260, 26092694, 1121201, 7232911, 1331073, 6512243 ####[address] [address] MCH (RBC) [Entitic mass] 29.7 pg Normal 27.0-34.0 [facility] Comment on above: Performed By: #### 2 505029, 94740625, 2112966, 2660468, 9149070, 6689337 ####[address] [address] MCHC (RBC) [Mass/Vol] 33.0 g/dL Normal 31.4-36.0 [facility] Comment on above: Performed By: #### 2 803566, 81765313, 5178405, 1288261, 5456157, 3431434 ####[facility] [address] [place] [address] MCV (RBC) [Entitic vol] 89.8 fL Normal 80.0-100.0 [facility] Comment on above: Performed By: #### 2 234587, 31243457, 6130091, 5881912, 0235383, 7297325 ####[address] [address] Nelson Absolute 0.3 E9/L Normal 0.2-1.0 [facility] Comment on above: Performed By: #### 2 619796, 94462729, 1554293, 0215867, 3540445, 7217537 ####[address] [address] Monocytes/100 WBC (Bld) 6.4 % Normal 4.0-14.0 [facility] Comment on above: Performed By: #### 2 415213, 00380159, 2790012, 1739326, 3358256, 4801874 ####[address] [address] Neutro Absolute 2.3 E9/L Normal 2.0-7.5 [facility] Comment on above: Performed By: #### 2 668897, 24208449, 0484930, 6162788, 9086444, 1980638 ####[address] [address] Neutro Auto 49.0 % Normal 36.0-75.0 [facility] Comment on above: Performed By: #### 2 133505, 48119546, 7260021, 6680110, 9347660, 2965455 ####[address] [address] Platelet 313.0 E9/L Normal 150.0-500.0 [facility] Comment on above: Performed By: #### 2 177708, 06447064, 8078040, 1612839, 6970970, 4776902 ####[facility] [address] [place] [address] Platelet mean volume (Bld) [Entitic vol] 8.7 fL Normal 6.4-10.8 [facility] Comment on above: Performed By: #### 2 215284, 00735418, 8000133, 9843833, 8580084, 7056744 ####[facility] [address] [place] [address] RBC 4.2 E12/L Low 4.3-5.9 [facility] Comment on above: Performed By: #### 2 636276, 65991444, 6650492, 8850170, 4331866, 1735463 ####[facility] [address] [place] [address] WBC 4.8 E9/L Normal 4.0-11.0 [facility] Comment on above: Performed By: #### 2 097817, 41564449, 6752328, 6099409, 7854637, 1092480 ####[facility] [address] [place] [address] CHEMISTRYOrdered By: SYSTEM SYSTEM on 03-16-2023 Albumin [...] and IV contrast. COMPARISON: None.. ACCESSION NUMBER(S): [id number] ORDERING CLINICIAN: TIFFANIE MENDEZ TECHNIQUE: Oral contrast [...] Corie Garza 03/16/2023 5:46 PM Dictation workstation: [id number] [facility] CT Abdomen and Pelvis W cont rast Brenden 03-16-2023 Patchy ground-glass densities in the bilateral lung bases may represent atelectasis. Multiple cystic lesions scattered throughout both lobes of the liver. Postsurgical changes of Tan-en-Y gastric bypass. MACRO: none Signed by: Corie Garza 03/16/2023 5:46 PM Dictation workstation: [id number] Interpreted By: Corie Garza, STUDY: CT ABDOMEN PELVIS W IV CONTRAST; 03/16/2023 5:27 pm INDICATION: Signs/Symptoms:abdo kerry pain - with oral and IV contrast. COMPARISON: None.. ACCESSION NUMBER(S): [id number] ORDERING CLINICIAN: TIFFANIE MENDEZ TECHNIQUE: Oral contrast [...] and IV contrast. COMPARISON: None.. ACCESSION NUMBER(S): [id number] ORDERING CLINICIAN: TIFFANIE MENDEZ TECHNIQUE: Oral contrast [...] Corie Garza 03/16/2023 5:46 PM Dictation workstation: [id number] [facility] Work Phone: Radiology Study observation (narrative) [facility] Work Phone: CT Abdomen and Pelvis W cont rast IVOrdered By: Corie Garza on 03-16-2023 [facility] Work Phone: Comprehensive metabolic 2000 panelon 03-16-2023 Albumin [Mass/Vol] 3.0 g/dL Low 3.5 - 5.0 g/dL [facility] ALP (Bld) [Catalytic activity/Vol] 58 U/L 35 - 125 U/L [facility] ALT [Catalytic activity/Vol] 13 U/L 5 - 40 U/L [facility] Anion gap [Moles/Vol] 10 mmol/L NINF - 19 mmol/L [facility] AST [Catalytic activity/Vol] 32 U/L 5 - 40 U/L [facility] Bilirubin [Mass/Vol] mg/dL 0.1 - 1.2 mg/dL [facility] Calcium [Mass/Vol] 7.9 mg/dL Low 8.5 - 10.4 mg/dL [facility] Chloride [Moles/Vol] 110 mmol/L High 97 - 107 mmol/L [facility] CO2 [Moles/Vol] 21 mmol/L Low 24 - 31 mmol/L [facility] Creatinine [Mass/Vol] 0.80 mg/dL 0.40 - 1.60 mg/dL [facility] eGFR - PINF [facility] Comment on above: Calculations of jessica mated GFR are performed using the 2020 CKD-EPI Study Refit equation without the race variable for the IDMS-Traceable creatinine methods. https://jasn.asnjournals.org/content//ASN.79767730 88 Glucose [Mass/Vol] 82 mg/dL 65 - 99 mg/dL [facility] Interpretation and review of laboratory results Abnormal [facility] Potassium [Moles/Vol] 3.7 mmol/L 3.4 - 5.1 mmol/L [facility] Protein [Mass/Vol] 5.5 g/dL Low 5.9 - 7.9 g/dL [facility] Sodium [Moles/Vol] 141 mmol/L 133 - 145 mmol/L [facility] Urea nitrogen [Mass/Vol] 8 mg/dL 8 - 25 mg/dL [facility] Albumin [Mass/Vol] 3.0 g/dL Low 3.5-5.0 [facility] Comment on above: Performed By: #### 2 4323-8 ####MELISA Galvan ([id number])[facility] ()[address] [place] [address] ALP (Bld) [Catalytic activity/Vol] 58 U/L Normal 35-125 [facility] Comment on above: Performed By: #### 2 4323-8 ####MELISA Galvan ([id number])[facility] ()[address] [place] [address] ALT [Catalytic activity/Vol] 13 U/L Normal 5-40 [facility] Comment on above: Performed By: #### 2 4323-8 ####MELISA Galvan ([id number])[facility] ()[address] [place] [address] Anion gap [Moles/Vol] 10 mmol/L Normal <=19 [facility] Comment on above: Performed By: #### 2 4323-8 ####MELISA Galvan (75898)[facility] ()[address] [place] [address] AST [Catalytic activity/Vol] 32 U/L Normal 5-40 [facility] Comment on above: Performed By: #### 2 4323-8 ####MELISA Galvan ([id number])[facility] ()[address] [place] [address] Bilirubin [Mass/Vol] mg/dL Normal 0.1-1.2 [facility] Comment on above: Performed By: #### 2 4323-8 ####MELISA Galvan ([id number])[facility] ()[address] [place] [address] Calcium [Mass/Vol] 7.9 mg/dL Low 8.5-10.4 [facility] Comment on above: Performed By: #### 2 4323-8 ####MELISA Galvan (45195)[facility] ()[address] [place] [address] Chloride [Moles/Vol] 110 mmol/L High 97-107 [facility] Comment on above: Performed By: #### 2 4323-8 ####MELISA Galvan (19348)[facility] ()[address] [place] [address] CO2 [Moles/Vol] 21 mmol/L Low 24-31 [facility] Comment on above: Performed By: #### 2 4323-8 ####MELISA Galvan ([id number])[facility] ()[address] [place] [address] Creatinine [Mass/Vol] 0.80 mg/dL Normal 0.40-1.60 [facility] Comment on above: Performed By: #### 2 4323-8 ####MELISA Galvan (64360)[facility] ()[address] [place] [address] GFR/1.73 sq M.predicted MDRD (S/P/Bld) [Vol rate/Area] mL/min/{1.73_m2} Normal >60 [facility] Comment on above: Result Comment: Calc ulations of estimated GFR are performed using the 2020 CKD-EPI Study Refit equation without the race variable for the IDMS-Traceable creatinine methods. https://jasn.asnjournals.org/content/early//ASN.55652165 88 Performed By: #### 2 4323-8 ####MELISA Galvan (60615)[facility] ()[address] [place] [address] Glucose [Mass/Vol] 82 mg/dL Normal 65-99 [facility] Comment on above: Performed By: #### 2 4323-8 ####MELISA Galvan ([id number])[facility] ()[address] [place] [address] Potassium [Moles/Vol] 3.7 mmol/L Normal 3.4-5.1 [facility] Comment on above: Performed By: #### 2 4323-8 ####MELISA Galvan (94822)[facility] ()[address] [place] [address] Protein [Mass/Vol] 5.5 g/dL Low 5.9-7.9 [facility] Comment on above: Performed By: #### 2 4323-8 ####MELISA Galvan (47375)[facility] ()[address] [place] [address] Sodium [Moles/Vol] 141 mmol/L Normal 133-145 [facility] Comment on above: Performed By: #### 2 4323-8 ####MELISA Galvan ([id number])[facility] ()[address] [place] [address] Urea nitrogen [Mass/Vol] 8 mg/dL Normal 8-25 [facility] Comment on above: Performed By: #### 2 4323-8 ####MELISA Galvan (93901)[facility] ()[address] [place] [address] Consent for Treatmenton 02-17 Consent for Treatment [id number] 972#1.00TIFF Normal [facility] Discharge Instructionson Discharge Instructions [id number] 21#1.00TIFF Normal [facility] Comment on above: Other Comment: wrong folder ED Clinical Summaryon 2023 ED Clinical [facility]-N[facility]ingon 03-16-2023 ED Note-Nursing called report to Thu PRICE, . Normal [facility] ED Note-Physicianon 03-16-19 ED Note-Physician Normal [facility] Comment on above: Result Comment: Elec tronically Signed By: Earnest Jett DO\.br\Date and Time Signed: 03/16/23 11:17 EST ED Patient Education Noteon 03-16-2023 ED Patient Education Note Normal [facility] ED Patient Summaryon 024 ED Patient Summary Normal [facility] HEMATOLOGYOrdered By: SYSTEM SYSTEM on 03-16-2023 [...] Normal 80.0 - 100.0 fL Remisol Heme Nelson Absolute 0.3 E9/L Normal 0.2 - 1.0 [...] [Mass/Vol] 3.8 g/dL Normal 3.3-5.0 [facility] Comment on above: Performed By: #### 2 608847, 62582311, 5969997, 3544700, 4257944, 7049088 ####[facility] [address] [place] [address] Albumin/Globulin [Mass ratio] 1.5 {ratio} Normal 1.1-2.2 [facility] Comment on above: Performed By: #### 2 793654, 63736037, 7880251, 6135653, 5864273, 1564402 ####[facility] [address] [place] [address] Alk Phos 62 Int._Unit/L Normal 21-98 [facility] Comment on above: Performed By: #### 2 838167, 32446275, 1461541, 5213722, 1837561, 9496291 ####[facility] [address] [place] [address] ALT 21 Int._Unit/L Normal 6-46 [facility] Comment on above: Performed By: #### 2 361701, 41112874, 4590186, 6952294, 1956785, 0786693 ####[facility] [address] [place] [address] AST 37 Int._Unit/L Normal 5-43 [facility] Comment on above: Performed By: #### 2 031396, 24724825, 4622917, 2595551, 6630850, 0714034 ####[facility] [address] [place] [address] Bili Direct 0.1 mg/dL Normal 0.0-0.4 [facility] Comment on above: Performed By: #### 2 458961, 55061216, 1868961, 8136367, 6451043, 6169030 ####[facility] [address] [place] [address] Bili Indirect 0.2 mg/dL Normal 0.1-0.9 [facility] Comment on above: Performed By: #### 2 175909, 36493429, 8851791, 7947294, 1645393, 1310326 ####[address] [address] Bili Total 0.3 mg/dL Normal 0.0-1.1 [facility] Comment on above: Performed By: #### 2 638682, 18311724, 5738771, 4221459, 4143086, 9981945 ####[address] [place] [address] Globulin (S) [Mass/Vol] 2.6 g/dL Normal 1.4-4.0 [facility] Comment on above: Performed By: #### 2 432093, 30397994, 0080489, 2679725, 6241767, 8881399 ####[address] [place] [address] Protein [Mass/Vol] 6.4 g/dL Normal 6.0-7.8 [facility] Comment on above: Performed By: #### 2 253495, 88381594, 5296091, 1238994, 5202827, 3528554 ####[facility] [address] [place] [address] Influenza virus A and B and SARS-CoV-2 (COVID-19) identified HANK+probe Nom (Resp)on 03-16-2023 FLUAV RNA HANK+probe Ql (Resp) Not detected Not Detected [facility] FLUBV RNA HANK+probe Ql (Resp) Not detected Not Detected [facility] Interpretation and review of laboratory results Normal [facility] SARS-CoV-2 (COVID-19) RNA HANK+probe Ql (Resp) Not detected Not Detected [facility] This assay has received [facility] Emergency Use Authorization (EUA) and is only [...] and has been validated for use at [facility]. Negative results do not preclude COVID-19 infections or Influenza A/B infections, and should not be used as the sole basis for diagnosis, treatment, or other management decisions. If Influenza A/B and RSV PCR results are negative, testing for Parainfluenza virus, Adenovirus and Metapneumovirus is routinely performed for [facility] pediatric oncology and intensive care inpatients, and is available on other patients by placing an add-on request. [facility] FLUAV RNA HANK+probe Ql (Resp) Not detected Normal Not Detected [facility] Comment on above: Order Comment: This assay [...] and has been validated for use at [facility]. Negative results do not preclude COVID-19 infections or Influenza A/B infections, and should not be used as the sole basis for diagnosis, treatment, or other management decisions. If Influenza A/B and RSV PCR results are negative, testing for Parainfluenza virus, Adenovirus and Metapneumovirus is routinely performed for [facility] pediatric oncology and intensive care inpatients, and is available on other patients by placing an add-on request. Performed By: #### 5 2969-3 #### ALON Johnson ([id number]) [facility] ([facility]) [address] [place] [address] FLUBV RNA HANK+probe Ql (Resp) Not detected Normal Not Detected [facility] Comment on above: Order Comment: This assay [...] and has been validated for use at [facility]. Negative results do not preclude COVID-19 infections or Influenza A/B infections, and should not be used as the sole basis for diagnosis, treatment, or other management decisions. If Influenza A/B and RSV PCR results are negative, testing for Parainfluenza virus, Adenovirus and Metapneumovirus is routinely performed for [facility] pediatric oncology and intensive care inpatients, and is available on other patients by placing an add-on request. Performed By: #### 5 2969-3 #### ALON Johnson ([id number]) [facility] ([facility]) [address] [place] [address] SARS-CoV-2 (COVID-19) RNA HANK+probe Ql (Resp) Not detected Normal Not Detected [facility] Comment on above: Order Comment: This assay [...] and has been validated for use at [facility]. Negative results do not preclude COVID-19 infections or Influenza A/B infections, and should not be used as the sole basis for diagnosis, treatment, or other management decisions. If Influenza A/B and RSV PCR results are negative, testing for Parainfluenza virus, Adenovirus and Metapneumovirus is routinely performed for [facility] pediatric oncology and intensive care inpatients, and is available on other patients by placing an add-on request. Performed By: #### 5 2969-3 #### ALON Johnson ([id number]) [facility] ([facility]) [address] [place] [address] Lactic Acidon 03-16-2023 Lactic Acid Lvl 0.6 mmol/L Normal 0.5-2.2 [facility] Comment on above: Performed By: #### 2 645297, 68223532, 9343597, 2773770, 9068991, 1125251 ####[facility] [address] [place] [address] Lipase Levelon 03-16-2023 Lipase Lvl 95 unit/L High 13-58 [facility] Comment on above: Performed By: #### 2 588122, 40927276, 1338216, 5461882, 6563425, 9619649 ####[facility] [address] [place] [address] Pre-Arrival Noteon 4 Pre-Arrival Note Normal [facility] Transfer Documentson 024 Transfer Documents [id number] 04#1.00TIFF Normal [facility] eGFRon 03-16-2023 eGFR 99 mL/min/1.73 m2 Normal >=59 [facility] Comment on above: Order Comment: Order added by Discern Expert. Performed By: #### 2 511243, 86721993, 3036051, 5135021, 0002558, 3398496 ####[facility] [address] [place] [address] BB Draw & Holdon 03-15-2023 BB D&H Sample drawn for Blood Ba Normal [facility] Comment on above: Performed By: #### 2 544279, 24308657, 15918431, 2028530, 5716937, 5976527, 33280224, 0808961, 52624223 ####[facility] [address] [place] [address] BMPon 03-15-2023 Anion gap [Moles/Vol] 12 mmol/L Normal 6-16 [facility] Comment on above: Performed By: #### 2 229785, 19984798, 19600724, 4452510, 9458845, 4254633, 78984109, 7931441, 58469816 ####[facility] [address] [place] [address] BUN/Creat Ratio 10 No Units Normal 10-20 [facility] Comment on above: Performed By: #### 2 825434, 02103646, 51547326, 7549180, 3429444, 0730139, 16967456, 3647870, 00938303 ####[facility] [address] [place] [address] Calcium [Mass/Vol] 8.5 mg/dL Low 8.9-11.1 [facility] Comment on above: Performed By: #### 2 735764, 00465879, 85209092, 8571884, 1818032, 6453807, 15089378, 8021771, 55700937 ####[facility] [address] [place] [address] Chloride [Moles/Vol] 110 mmol/L Normal 101-111 [facility] Comment on above: Performed By: #### 2 968065, 02452831, 63278885, 2595812, 1812726, 3336167, 46697383, 0443062, 21184645 ####[facility] [address] [place] [address] CO2 [Moles/Vol] 22 mmol/L Normal 21-31 [facility] Comment on above: Performed By: #### 2 434056, 96862496, 08429038, 0491019, 8327601, 0052265, 16654668, 1771738, 47944013 ####[facility] [address] [place] [address] Creatinine [Mass/Vol] 0.8 mg/dL Normal 0.5-1.3 [facility] Comment on above: Performed By: #### 2 829600, 44267953, 23983787, 1369350, 7928698, 7821062, 73829430, 7181802, 61506443 ####[facility] [address] [place] [address] Glucose [Mass/Vol] 79 mg/dL Normal 55-199 [facility] Comment on above: Performed By: #### 2 024577, 35664950, 07532889, 4689320, 9754257, 7994313, 73268686, 6376343, 67810186 ####[facility] [address] [place] [address] Potassium [Moles/Vol] 3.6 mmol/L Normal 3.5-5.3 [facility] Comment on above: Performed By: #### 2 003212, 54474373, 71317829, 3555958, 8596267, 7739049, 47912207, 5194215, 63920983 ####[facility] [address] [place] [address] Sodium [Moles/Vol] 140 mmol/L Normal 135-145 [facility] Comment on above: Performed By: #### 2 455799, 65994300, 47876365, 1670912, 5836179, 4050716, 45603631, 8280800, 12197526 ####[facility] [address] [place] [address] Urea nitrogen [Mass/Vol] 8 mg/dL Normal 5-21 [facility] Comment on above: Performed By: #### 2 005810, 67027612, 25182212, 2655203, 6125416, 3766046, 10927360, 8381043, 47828861 ####[address] [place] [address] CBC w/ Auto Diffon 4 Basophil Absolute 0.1 E9/L Normal 0.0-0.2 [facility] Comment on above: Performed By: #### 2 435155, 05289950, 03570996, 1842617, 9166052, 6598074, 76987075, 9123691, 87893820 ####[address] [place] [address] Basophils/100 WBC (Bld) 0.9 % Normal 0.0-2.0 [facility] Comment on above: Performed By: #### 2 211960, 98705925, 78849104, 0433063, 9906627, 9163722, 13160442, 5902470, 76723970 ####[address] [address] Eos Absolute 0.6 E9/L High 0.0-0.5 [facility] Comment on above: Performed By: #### 2 543925, 66561958, 98778832, 4598742, 5862038, 9989418, 25488330, 3473122, 79528767 ####[address] [address] Eosinophils/100 WBC (Bld) 9.6 % High 0.0-8.0 [facility] Comment on above: Performed By: #### 2 445725, 36709245, 31287576, 8147366, 8472191, 1174654, 03640375, 2652217, 40871229 ####[address] [address] Erythrocyte distribution width (RBC) [Ratio] 13.2 % Normal 10.9-14.2 [facility] Comment on above: Performed By: #### 2 101738, 79209287, 46441087, 2971642, 7323860, 7678259, 59778238, 9462055, 32917651 ####[address] [address] Hematocrit (Bld) [Volume fraction] 36.0 % Normal 34.0-46.0 [facility] Comment on above: Performed By: #### 2 110534, 20105058, 60149511, 5150170, 8801978, 7294318, 59844625, 1391115, 40831931 ####[address] [address] Hemoglobin (Bld) [Mass/Vol] 12.2 g/dL Normal 12.0-16.0 [facility] Comment on above: Performed By: #### 2 956211, 56822311, 48269116, 8771470, 9694618, 7505935, 62772246, 4172528, 44603406 ####[address] [place] [address] Lymph Absolute 2.0 E9/L Normal 1.0-4.0 [facility] Comment on above: Performed By: #### 2 138776, 09770852, 27880621, 8767009, 0272084, 3440904, 23280499, 1896019, 81427406 ####[address] [address] Lymphocytes/100 WBC (Bld) 32.4 % Normal 14.0-50.0 [facility] Comment on above: Performed By: #### 2 760711, 34987736, 98847126, 8408848, 1427789, 0172477, 94954366, 6052668, 65152851 ####[address] [address] MCH (RBC) [Entitic mass] 30.6 pg Normal 27.0-34.0 [facility] Comment on above: Performed By: #### 2 779267, 36298820, 14697822, 0701780, 2462007, 2902979, 62089171, 4547892, 93735218 ####[address] [address] MCHC (RBC) [Mass/Vol] 34.3 g/dL Normal 31.4-36.0 [facility] Comment on above: Performed By: #### 2 874381, 96925580, 46898473, 9523950, 3688181, 9591556, 56634809, 5117077, 00976093 ####[address] [address] MCV (RBC) [Entitic vol] 89.0 fL Normal 80.0-100.0 [facility] Comment on above: Performed By: #### 2 433682, 40608446, 55809420, 4580473, 5054754, 9029028, 52257988, 7121410, 07592924 ####[address] [address] Nelson Absolute 0.3 E9/L Normal 0.2-1.0 [facility] Comment on above: Performed By: #### 2 756448, 37160896, 06429750, 0621355, 5594515, 2754894, 05704953, 7080198, 64035236 ####[facility] [address] [place] [address] Monocytes/100 WBC (Bld) 5.6 % Normal 4.0-14.0 [facility] [facility] Comment on above: Performed By: #### 2 522245, 49585834, 76159009, 2750998, 6766007, 9698256, 20852851, 7877793, 65241501 ####[facility] [address] [place] [address] Neutro Absolute 3.2 E9/L Normal 2.0-7.5 [facility] Comment on above: Performed By: #### 2 105880, 48311819, 97971028, 5114206, 6067594, 0755154, 14827177, 2291039, 05666206 ####[facility] [address] [place] [address] Neutro Auto 51.5 % Normal 36.0-75.0 [facility] Comment on above: Performed By: #### 2 495346, 56524850, 71923084, 5419510, 6180561, 3827043, 03890191, 0638681, 46394304 ####[facility] [address] [place] [address] Platelet 309.0 E9/L Normal 150.0-500.0 [facility] Comment on above: Result Comment: Demetra meneses with slide review Performed By: #### 2 778508, 37504316, 32145313, 3426287, 7126742, 7447618, 36188358, 0466500, 11458776 ####[address] [place] [address] Platelet mean volume (Bld) [Entitic vol] 9.1 fL Normal 6.4-10.8 [facility] Comment on above: Performed By: #### 2 806195, 02004843, 86198040, 3714443, 8446743, 8722041, 90096264, 1240148, 00351983 ####[facility] [address] [place] [address] RBC 4.0 E12/L Low 4.3-5.9 [facility] Comment on above: Performed By: #### 2 698502, 76278957, 83580904, 4774476, 8838267, 5064779, 16431348, 9121491, 61291574 ####[facility] [address] [place] [address] WBC 6.1 E9/L Normal 4.0-11.0 [facility] Comment on above: Performed By: #### 2 416233, 11732431, 47672248, 2523260, 4628717, 2823552, 65645566, 1009673, 63988479 ####[facility] [address] [place] [address] CHEMISTRYOrdered By: SYSTEM SYSTEM on 03-15-2023 Lactic [...] Sensitivity Troponin I Instructions For Use, Alan Kneeland, September 2017) Urea nitrogen [Mass/Vol] 8 mg/dL Normal 5 - 21 mg/dL Remisol Chem Urea nitrogen/Creatinine [Mass ratio] 10 mg/mg Normal 10 - 20 Remisol Chem COAGULATIONOrdered By: Strom Baca on 03-15-2023 aPTT Coag (PPP) [Time] 32.3 s Normal 25.1 - 36.5 second(s) [facility] Auto Coag Comment on above: Interpretive Data: [...] obtained from a study by nara Thompson alRenetta prepared from 1437 samples obtained at 7 different centers using the same coagulation reagent and instrumentation as [facility]. Currently there are no coagulation studies available worldwide for children to 14 days, and no normal ranges. Heparin therapeutic range (represented by Anti-Factor Xa activity of 0.2 - 0.4 U/mL) corresponds to PTT of 56.6 - 109.0 sec. INR Coag (PPP) [Relative time] 1.1 {INR} Invalid Interpretation Code [facility] Auto Coag Comment on above: Interpretive Data: I NR results are specifically intended to assess patients stabilized on long-term Anticoagulation therapy suggested INR s Less Intensive Anticoagulation 2.0 3.0 Conventional Range 3.0 4.5 PT Coag (PPP) [Time] 12.6 s High 9.4 - 12.5 second(s) [facility] Auto Coag Comment on above: Interpretive Data: 1 5 days - 4 weeks 1 - 5 months 6 -11 months 1-5 years 6-10 years 11 -17 years Mean: 11.2 (9.5-12.6) Mean: 11.0 (9.7-12.8) Mean: 11.0 (9.8-13.0) Mean: 11.3 (9.9-13.4) Mean: 11.7 (10.0-14.6) Mean: 11.8 (10.0 - 14.1) Pediatric Reference ranges were obtained from a study by nara Thompson alRenetta prepared from 1437 samples obtained at 7 different centers using the same coagulation reagent and instrumentation as [facility]. Currently there are no coagulation studies available worldwide for children to 14 days, and no normal ranges. CT Abdomen/Pelvis w/o Contra manolo 03-15-2023 CT Abdomen/Pelvis w/o Contrast Normal [facility] Consent for Treatmenton 02-16 Consent for Treatment [id number]#1.00TIFF Normal [facility] Discharge Instructionson Discharge Instructions [id number]#1.00TIFF Normal [facility] ED Clinical Summaryon 2023 ED Clinical Summary Normal [facility] ED Note-Physicianon 03-15-19 ED Note-Physician Normal [facility] Comment on above: Result Comment: Elec tronically Signed By: Earnest Jett DO\.br\Date and Time Signed: 03/15/23 17:31 EST ED Patient Education Noteon 03-15-2023 ED Patient Education Note Normal [facility] ED Patient Summaryon 024 ED Patient Summary Normal [facility] EMS Documentationon 03-15-19 EMS Documentation Please click on link to see report Normal [facility] Comment on above: Result Comment: Miss [...] Normal 80.0 - 100.0 fL Remisol Heme Nelson Absolute 0.3 E9/L Normal 0.2 - 1.0 [...] [Mass/Vol] 3.6 g/dL Normal 3.3-5.0 [facility] Comment on above: Performed By: #### 2 014904, 08084639, 78967486, 8469364, 1420145, 4872501, 72550090, 5753676, 75994259 ####[facility] [address] [place] [address] Albumin/Globulin [Mass ratio] 1.4 {ratio} Normal 1.1-2.2 [facility] Comment on above: Performed By: #### 2 019513, 29687978, 43645956, 1547235, 8375556, 0123691, 19345426, 2950551, 84597473 ####[facility] [address] [place] [address] Alk Phos 64 Int._Unit/L Normal 21-98 [facility] Comment on above: Performed By: #### 2 168324, 98684638, 98624257, 9630246, 3857481, 0002931, 59848798, 9900612, 27063735 ####[facility] [address] [place] [address] ALT 20 Int._Unit/L Normal 6-46 [facility] Comment on above: Performed By: #### 2 766524, 45170704, 48613417, 7432495, 7413624, 5811366, 67562712, 6728889, 67759184 ####[facility] [address] [place] [address] AST 35 Int._Unit/L Normal 5-43 [facility] Comment on above: Performed By: #### 2 526058, 31814064, 60362790, 4706506, 3889377, 4751031, 97092748, 4566486, 39686398 ####[facility] [address] [place] [address] Bili Direct 0.0 mg/dL Normal 0.0-0.4 [facility] Comment on above: Performed By: #### 2 894460, 95960224, 81232735, 4466239, 7357084, 7778362, 00999890, 6095188, 22590652 ####[facility] [address] [place] [address] Bili Indirect 0.2 mg/dL Normal 0.1-0.9 [facility] Comment on above: Performed By: #### 2 272449, 43253359, 33447015, 1032802, 1450344, 3246855, 98695396, 4710808, 04667347 ####[facility] [address] [place] [address] Bili Total 0.2 mg/dL Normal 0.0-1.1 [facility] Comment on above: Performed By: #### 2 448324, 94212640, 71272274, 1139200, 0170885, 1302762, 51656930, 9020656, 24428622 ####[facility] [address] [place] [address] Globulin (S) [Mass/Vol] 2.6 g/dL Normal 1.4-4.0 [facility] Comment on above: Performed By: #### 2 398905, 30489860, 02322253, 9022758, 7395837, 9265439, 42731860, 3402536, 39193980 ####[address] [place] [address] Protein [Mass/Vol] 6.2 g/dL Normal 6.0-7.8 [facility] Comment on above: Performed By: #### 2 244603, 69505583, 00762972, 9396524, 9151989, 6005109, 99890912, 8211894, 55121231 ####[facility] [address] [place] [address] Home Health Recordson 2023 Home Health Records [id number] 1#1.00TIFF Normal [facility] Lactic Acidon 03-15-2023 Lactic Acid Lvl 0.7 mmol/L Normal 0.5-2.2 [facility] Comment on above: Performed By: #### 2 241518, 21256909, 00173641, 3562269, 6100312, 3439863, 56393545, 3319710, 18903446 ####[facility] [address] [place] [address] Lipase Levelon 03-15-2023 Lipase Lvl 115 unit/L High 13-58 [facility] Comment on above: Performed By: #### 2 674282, 29975588, 48958327, 2156410, 0226487, 7505460, 52552054, 0705625, 66439229 ####[facility] [address] [place] [address] PT & PTTon 03-15-2023 aPTT Coag (PPP) [Time] 32.3 second(s) Normal 25.1-36.5 [facility] Comment on above: Result Comment: Para [...] the same coagulation reagent and instrumentation as [facility]. Currently there are no coagulation studies available worldwide for children to 14 days, and no normal ranges. Heparin therapeutic range (represented by Anti-Factor Xa activity of 0.2 - 0.4 U/mL) corresponds to PTT of 56.6 - 109.0 sec. Performed By: #### 2 590457, 79693887, 74958986, 0334300, 2998638, 0782530, 37706104, 1563121, 85455545 ####[facility] [address] [place] [address] INR Coag (PPP) [Relative time] 1.1 {INR} Invalid Interpretation Code [facility] Comment on above: Result Comment: INR results are specifically intended to assess patients stabilized on long-term Anticoagulation therapy suggested INR?s ?Less Intensive Anticoagulation? 2.0 ? 3.0Conventional Range 3.0 ? 4.5 Performed By: #### 2 327281, 97954049, 05594551, 0784303, 7852403, 3229008, 78900690, 4907304, 26305998 ####[facility] [address] [place] [address] PT Coag (PPP) [Time] 12.6 second(s) High 9.4-12.5 [facility] Comment on above: Result Comment: 15 [...] the same coagulation reagent and instrumentation as [facility]. Currently there are no coagulation studies available worldwide for children to 14 days, and no normal ranges. Performed By: #### 2 707620, 90750927, 58596401, 3244739, 3615282, 3975809, 63948907, 4258218, 70519093 ####[facility] [address] [place] [address] Pre-Arrival Noteon Pre-Arrival Note Normal [facility] Troponin 0 Hr.on 03-15-2023 Troponin I.cardiac [Mass/Vol] ng/mL Low 10.10-27.10 [facility] Comment on above: Result Comment: The 95% CI (Confidence Interval) PPV (Positive Predictive Value) for myocardial infarction in females is 38 pg/mL, in males 51 pg/mL. The results should be used in conjunction with clinical conditions of myocardial infarction.(Access High Sensitivity Troponin I Instructions For Use, Alan Gordy, September 2017) Performed By: #### 2 707432, 95977595, 28976020, 0188354, 5335617, 9830499, 82760114, 6050401, 14963860 ####[facility] [address] [place] [address] UA With Cult Reflexon 2023 Bilirubin Ql (U) Negative Normal Negative [facility] Comment on above: Performed By: #### 1 8757529 ####[facility] [address] [place] [address] Clarity (U) CLEAR Normal Clear [facility] Comment on above: Performed By: #### 1 4184962 ####[facility] [address] [place] [address] Color (U) ORANGE Abnormal Yellow [facility] Comment on above: Performed By: #### 1 9973186 ####[facility] [address] [place] [address] Crystals LM Ql (Urine sed) Present Normal [facility] Comment on above: Performed By: #### 1 3544998 ####[facility] [address] [place] [address] Epithelial cells.squamous LM.HPF (Urine sed) [#/Area] 0-2 Normal 0-2 [facility] Comment on above: Performed By: #### 1 9468616 ####[facility] [address] [place] [address] Glucose Test strip (U) [Mass/Vol] TRACE Abnormal Negative [facility] Comment on above: Performed By: #### 1 6413506 ####[facility] [address] [place] [address] Hemoglobin Ql (U) Negative Normal Negative [facility] Comment on above: Performed By: #### 1 7285885 ####[facility] [address] [place] [address] Ketones (U) [Mass/Vol] Negative Normal Negative [facility] Comment on above: Performed By: #### 1 7870527 ####[facility] [address] [place] [address] [place].plasma/Lith ium.RBC (Bld) [Mass ratio] 0-3 Normal 0-3 [facility] Comment on above: Performed By: #### 1 4817561 ####[facility] [address] [place] [address] Nitrite Ql (U) See Comment Normal Negative [facility] Comment on above: Result Comment: Test Not Performed Due To Interfering Substance Performed By: #### 1 8643875 ####[address] [address] pH (U) 7.0 [pH] Invalid Interpretation Code 5.0-9.0 [facility] Comment on above: Performed By: #### 1 0337326 ####[address] [address] Protein (U) [Mass/Vol] 1+ Abnormal Negative [facility] Comment on above: Performed By: #### 1 4691802 ####[address] [address] Specific gravity (U) [Rel density] 1.010 Invalid Interpretation Code 1.005-1.030 [facility] Comment on above: Performed By: #### 1 2750885 ####[address] [address] Type of Urine collection method Clean Catch Normal [facility] Comment on above: Performed By: #### 1 6103394 ####[address] [address] Urobilinogen Qn (U) See Comment Normal 0.0-1.0 [facility] Comment on above: Result Comment: Test Not Performed Due To Interfering Substance Performed By: #### 1 3462222 ####[address] [address] WBC Auto Ql (U) Negative Normal Negative [facility] Comment on above: Performed By: #### 1 0023815 ####[address] [address] WBC LM.HPF (Urine sed) [#/Area] 0-5 Normal 0-5 [facility] Comment on above: Performed By: #### 1 4484018 ####[address] [address] URINALYSISOrdered By: Alcira Lee on 03-15-2023 Bilirubin Ql (U) Negative (03/15/23 2:43 PM) Normal Negative [facility] UA Auto SS Clarity (U) Clear (03/15/23 2:43 PM) Normal Clear [facility] UA Auto SS Color (U) [place] *ABN* (03/15/23 2:43 PM) Invalid Interpretation Code [...] PM) Normal Negative [facility] UA Auto SS [place].plasma/Lith ium.RBC (Bld) [Mass ratio] 0-3 /HPF Normal [...] /HPF Normal 0-5/HPF [facility] UA Auto SS XR Chest Single Viewon 03-15 XR Chest Single View Normal [facility] eGFRon 03-15-2023 eGFR 99 mL/min/1.73 m2 Normal >=59 [facility] Comment on above: Order Comment: Order added by Discern Expert. Performed By: #### 2 441643, 59278355, 52026856, 4032170, 5600423, 5241730, 73356126, 5995477, 65921456 ####[facility] [address] [place] [address] Basic metabolic 2000 panelon 03-10-2023 Anion gap [Moles/Vol] 11 mmol/L NINF - 19 mmol/L [facility] Calcium [Mass/Vol] 8.0 mg/dL Low 8.5 - 10.4 mg/dL [facility] Chloride [Moles/Vol] 108 mmol/L High 97 - 107 mmol/L [facility] CO2 [Moles/Vol] 22 mmol/L Low 24 - 31 mmol/L [facility] Creatinine [Mass/Vol] 0.60 mg/dL 0.40 - 1.60 mg/dL [facility] eGFR - PINF [facility] Comment on above: Calculations of jessica mated GFR are performed using the 2020 CKD-EPI Study Refit equation without the race variable for the IDMS-Traceable creatinine methods. https://jasn.asnjournals.org/content//ASN.41791237 88 Glucose [Mass/Vol] 89 mg/dL 65 - 99 mg/dL [facility] Interpretation and review of laboratory results Abnormal [facility] Potassium [Moles/Vol] 3.7 mmol/L 3.4 - 5.1 mmol/L [facility] Sodium [Moles/Vol] 141 mmol/L 133 - 145 mmol/L [facility] Urea nitrogen [Mass/Vol] 4 mg/dL Low 8 - 25 mg/dL [facility] Anion gap [Moles/Vol] 11 mmol/L Normal <=19 [facility] Comment on above: Performed By: #### 5 2969-3 #### ALON Johnson ([id number]) [facility] ([facility]) [address] [place] [address] Calcium [Mass/Vol] 8.0 mg/dL Low 8.5-10.4 [facility] Comment on above: Performed By: #### 5 2969-3 #### ALON Johnson ([id number]) [facility] ([facility]) [address] [place] [address] Chloride [Moles/Vol] 108 mmol/L High 97-107 [facility] Comment on above: Performed By: #### 5 2969-3 #### ALON Johnson ([id number]) [facility] ([facility]) [id number] [place] [address] CO2 [Moles/Vol] 22 mmol/L Low 24-31 [facility] Comment on above: Performed By: #### 5 2969-3 #### ALON Johnson ([id number]) [facility] ([facility]) [address] [place] [address] Creatinine [Mass/Vol] 0.60 mg/dL Normal 0.40-1.60 [facility] Comment on above: Performed By: #### 5 2969-3 #### ALON Johnson ([id number]) [facility] ([facility]) [address] [place] [address] GFR/1.73 sq M.predicted MDRD (S/P/Bld) [Vol rate/Area] mL/min/{1.73_m2} Normal >60 [facility] Comment on above: Result Comment: Calc ulations of estimated GFR are performed using the 2020 CKD-EPI Study Refit equation without the race variable for the IDMS-Traceable creatinine methods. https://jasn.asnjournals.org/content/early//ASN.08964509 88 Performed By: #### 5 2969-3 #### ALON Johnosn ([id number]) [facility] ([facility]) [address] [place] [address] Glucose [Mass/Vol] 89 mg/dL Normal 65-99 [facility] Comment on above: Performed By: #### 5 2969-3 #### ALON Johnson ([id number]) [facility] ([facility]) [id number] [place] [address] Potassium [Moles/Vol] 3.7 mmol/L Normal 3.4-5.1 [facility] Comment on above: Performed By: #### 5 2969-3 #### ALON Johnson ([id number]) [facility] ([facility]) [address] [place] [address] Sodium [Moles/Vol] 141 mmol/L Normal 133-145 [facility] Comment on above: Performed By: #### 5 2969-3 #### ALON Johnson (69847) [facility] ([facility]) [address] [place] [address] Urea nitrogen [Mass/Vol] 4 mg/dL Low 8-25 [facility] Comment on above: Performed By: #### 5 2969-3 #### ALON Johnson ([id number]) [facility] ([facility]) [address] [place] [address] CBC panel Auto (Bld)on 03-10 Erythrocyte distribution width (RBC) [Ratio] 12.9 % 11.5 - 14.5 % [facility] Hematocrit (Bld) [Volume fraction] 31.3 % Low 36.0 - 46.0 % [facility] Hemoglobin (Bld) [Mass/Vol] 10.6 g/dL Low 12.0 - 16.0 g/dL [facility] Interpretation and review of laboratory results Abnormal [facility] MCH (RBC) [Entitic mass] 30.7 pg 26.0 - 34.0 pg [facility] MCHC (RBC) [Mass/Vol] 33.9 g/dL 32.0 - 36.0 g/dL [facility] MCV (RBC) [Entitic vol] 91 fL 80 - 100 fL [facility] Nucleated RBC/100 WBC (Bld) [Ratio] 0.0 % [facility] Platelets (Bld) [#/Vol] 215 10*3/uL [facility] RBC (Bld) [#/Vol] 3.45 10*6/uL [facility] WBC (Bld) [#/Vol] 4.0 10*3/uL [facility] Erythrocyte distribution width (RBC) [Ratio] 12.9 % Normal 11.5-14.5 [facility] Comment on above: Performed By: #### 5 2969-3 #### ALON Johnson ([id number]) [facility] ([facility]) [address] [place] [address] Hematocrit (Bld) [Volume fraction] 31.3 % Low 36.0-46.0 [facility] Comment on above: Performed By: #### 5 2969-3 #### ALON Johnson ([id number]) [facility] ([facility]) [address] [place] [address] Hemoglobin (Bld) [Mass/Vol] 10.6 g/dL Low 12.0-16.0 [facility] Comment on above: Performed By: #### 5 2969-3 #### ALON Johnson ([id number]) [facility] ([facility]) [address] [place] [address] MCH (RBC) [Entitic mass] 30.7 pg Normal 26.0-34.0 [facility] Comment on above: Performed By: #### 5 2969-3 #### ALON Johnson ([id number]) [facility] ([facility]) [address] [place] [address] MCHC (RBC) [Mass/Vol] 33.9 g/dL Normal 32.0-36.0 [facility] Comment on above: Performed By: #### 5 2969-3 #### ALON Johnson ([id number]) [facility] ([facility]) [address] [place] [address] MCV (RBC) [Entitic vol] 91 fL Normal 80-100 [facility] Comment on above: Performed By: #### 5 2969-3 #### ALON Johnson ([id number]) [facility] ([facility]) [address] [place] [address] Nucleated RBC/100 WBC (Bld) [Ratio] 0.0 /100 WBCs Normal 0.0-0.0 [facility] Comment on above: Performed By: #### 5 2969-3 #### ALON Johnson ([id number]) [facility] ([facility]) [address] [place] [address] Platelets (Bld) [#/Vol] 215 x10*3/uL Normal 150-450 [facility] Comment on above: Performed By: #### 5 2969-3 #### ALON Johnson ([id number]) [facility] ([facility]) [address] [place] [address] RBC (Bld) [#/Vol] 3.45 x10*6/uL Low 4.00-5.20 [facility] Comment on above: Performed By: #### 5 2969-3 #### ALON Johnson ([id number]) [facility] ([facility]) [address] [place] [address] WBC (Bld) [#/Vol] 4.0 x10*3/uL Low 4.4-11.3 [facility] Comment on above: Performed By: #### 5 2969-3 #### ALON Johnson ([id number]) [facility] ([facility]) [address] [place] [address] Gastrointestinal pathogens i dentified HANK+probe Nom (Stl)Ordered By: Edwige Bronson on 03-10-2023 Campylobacter Group Not detected Not Detected [facility] E. coli stx1 gene HANK+probe Ql (Stl) Not detected Not Detected [facility] E. coli stx2 gene HANK+probe Ql (Stl) Not detected Not Detected [facility] Interpretation and review of laboratory results Normal [facility] Norovirus genogroup I and II RNA HANK+probe Nom (Stl) Not detected Not Detected [facility] Rotavirus RNA HANK+probe Nom (Stl) Not detected Not Detected [facility] Salmonella species Not detected Not Detected [facility] Shigella sp DNA HANK+probe Ql (Unsp spec) Not detected Not Detected [facility] [employer] Not detected Not Detected [facility] Y. enterocolitica DNA HANK+probe Ql (Stl) Not detected Not Detected [facility] Glucose Test strip manual (B ld) [Mass/Vol]on 03-10-2023 Glucose [Mass/Vol] 104 mg/dL High 74 - 99 mg/dL [facility] Interpretation and review of laboratory results Abnormal [facility] Glucose [Mass/Vol] 104 mg/dL High 74-99 [facility] Comment on above: Performed By: #### 5 2969-3 #### ALON Johnson ([id number]) [facility] ([facility]) [address] [place] [address] Glucose [Mass/Vol] 82 mg/dL 74 - 99 mg/dL [facility] Glucose [Mass/Vol] 109 mg/dL High 74 - 99 mg/dL [facility] Interpretation and review of laboratory results Normal [facility] Interpretation and review of laboratory results Abnormal [facility] Glucose [Mass/Vol] 109 mg/dL High 74-99 [facility] Comment on above: Performed By: #### 5 2969-3 #### ALON Johnson ([id number]) [facility] ([facility]) [address] [place] [address] Glucose [Mass/Vol] 84 mg/dL 74 - 99 mg/dL [facility] Interpretation and review of laboratory results Normal [facility] Glucose [Mass/Vol] 84 mg/dL Normal 74-99 [facility] Comment on above: Performed By: #### 5 2969-3 #### ALON Johnson ([id number]) [facility] ([facility]) [address] [place] [address] Glucose [Mass/Vol] 79 mg/dL 74 - 99 mg/dL [facility] Interpretation and review of laboratory results Normal [facility] Glucose [Mass/Vol] 79 mg/dL Normal 74-99 [facility] Comment on above: Performed By: #### 5 2969-3 #### ALON Johnson ([id number]) [facility] ([facility]) [address] [place] [address] Basic metabolic 2000 panelon 03-09-2023 Anion gap [Moles/Vol] 10 mmol/L NINF - 19 mmol/L [facility] Calcium [Mass/Vol] 8.3 mg/dL Low 8.5 - 10.4 mg/dL [facility] Chloride [Moles/Vol] 105 mmol/L 97 - 107 mmol/L [facility] CO2 [Moles/Vol] 20 mmol/L Low 24 - 31 mmol/L [facility] Creatinine [Mass/Vol] 0.60 mg/dL 0.40 - 1.60 mg/dL [facility] eGFR - PINF [facility] Comment on above: Calculations of jessica mated GFR are performed using the 2020 CKD-EPI Study Refit equation without the race variable for the IDMS-Traceable creatinine methods. https://jasn.asnjournals.org/content//ASN.14022020 88 Glucose [Mass/Vol] 98 mg/dL 65 - 99 mg/dL [facility] Interpretation and review of laboratory results Abnormal [facility] Potassium [Moles/Vol] 3.7 mmol/L 3.4 - 5.1 mmol/L [facility] Sodium [Moles/Vol] 135 mmol/L 133 - 145 mmol/L [facility] Urea nitrogen [Mass/Vol] mg/dL Low 8 - 25 mg/dL [facility] Comment on above: Result rechecked [facility] Anion gap [Moles/Vol] 10 mmol/L Normal <=19 [facility] Comment on above: Performed By: #### 2 4321-2 ####MELISA Galvan ([id number])[facility] ()[address] [place] [address] Calcium [Mass/Vol] 8.3 mg/dL Low 8.5-10.4 [facility] Comment on above: Performed By: #### 2 4321-2 ####MELISA Galvan ([id number])[facility] ()[address] [place] [address] Chloride [Moles/Vol] 105 mmol/L Normal 97-107 [facility] Comment on above: Performed By: #### 2 4321-2 ####MELISA Galvan (85003)[facility] ()[address] [place] [address] CO2 [Moles/Vol] 20 mmol/L Low 24-31 [facility] Comment on above: Performed By: #### 2 4321-2 ####MELISA Galvan (63960)[facility] ()[address] [place] [address] Creatinine [Mass/Vol] 0.60 mg/dL Normal 0.40-1.60 [facility] Comment on above: Performed By: #### 2 4321-2 ####MELISA Galvan ([id number])[facility] ()[address] [place] [address] GFR/1.73 sq M.predicted MDRD (S/P/Bld) [Vol rate/Area] mL/min/{1.73_m2} Normal >60 [facility] Comment on above: Result Comment: Calc ulations of estimated GFR are performed using the 2020 CKD-EPI Study Refit equation without the race variable for the IDMS-Traceable creatinine methods. https://jasn.asnjournals.org/content/early/ASN.66327333 88 Performed By: #### 2 4321-2 ####MELISA Galvan ([id number])[facility] ()[address] [place] [address] Glucose [Mass/Vol] 98 mg/dL Normal 65-99 [facility] Comment on above: Performed By: #### 2 4321-2 ####MELISA Galvan ([id number])[facility] ()[address] [place] [address] Potassium [Moles/Vol] 3.7 mmol/L Normal 3.4-5.1 [facility] Comment on above: Performed By: #### 2 4321-2 ####MELISA Galvan ([id number])[facility] ()[address] [place] [address] Sodium [Moles/Vol] 135 mmol/L Normal 133-145 [facility] Comment on above: Performed By: #### 2 4321-2 ####MELISA Galvan ([id number])[facility] ()[address] [place] [address] Urea nitrogen [Mass/Vol] mg/dL Low 8-25 [facility] Comment on above: Result Comment: Resu lt rechecked Performed By: #### 2 4321-2 ####MELISA Galvan ([id number])[facility] ()[address] [place] [address] C. difficile toxin A+B tcdA+ tcdB genes HANK+probe Ql (Stl)on 03-09-2023 Interpretation and review of laboratory results Normal [facility] This test is an FDA-cleared [...] performed more than once per 7 days. [facility] C. difficile, PCRon 03-09-19 24 C. difficile toxin A+B tcdA+tcdB genes HANK+probe Ql (Stl) Not detected Not Detected [facility] CBC panel Auto (Bld)on 03-09 Erythrocyte distribution width (RBC) [Ratio] 12.7 % 11.5 - 14.5 % [facility] Hematocrit (Bld) [Volume fraction] 34.6 % Low 36.0 - 46.0 % [facility] Hemoglobin (Bld) [Mass/Vol] 11.7 g/dL Low 12.0 - 16.0 g/dL [facility] Interpretation and review of laboratory results Abnormal [facility] MCH (RBC) [Entitic mass] 30.8 pg 26.0 - 34.0 pg [facility] MCHC (RBC) [Mass/Vol] 33.8 g/dL 32.0 - 36.0 g/dL [facility] MCV (RBC) [Entitic vol] 91 fL 80 - 100 fL [facility] Nucleated RBC/100 WBC (Bld) [Ratio] 0.0 % [facility] Platelets (Bld) [#/Vol] 226 10*3/uL [facility] RBC (Bld) [#/Vol] 3.80 10*6/uL Low [facility] WBC (Bld) [#/Vol] 6.8 10*3/uL [facility] Erythrocyte distribution width (RBC) [Ratio] 12.7 % Normal 11.5-14.5 [facility] Comment on above: Performed By: #### 5 8410-2 ####MELISA Galvan ([id number])[facility] ()[address] [place] [address] Hematocrit (Bld) [Volume fraction] 34.6 % Low 36.0-46.0 [facility] Comment on above: Performed By: #### 5 8410-2 ####MELISA Galvan ([id number])[facility] ()[address] [place] [address] Hemoglobin (Bld) [Mass/Vol] 11.7 g/dL Low 12.0-16.0 [facility] Comment on above: Performed By: #### 5 8410-2 ####MELISA Galvan (51068)[facility] ()[address] [place] [address] MCH (RBC) [Entitic mass] 30.8 pg Normal 26.0-34.0 [facility] Comment on above: Performed By: #### 5 8410-2 ####MELISA Galvan (48267)[facility] ()[address] [place] [address] MCHC (RBC) [Mass/Vol] 33.8 g/dL Normal 32.0-36.0 [facility] Comment on above: Performed By: #### 5 8410-2 ####MELISA Galvan (89091)[facility] ()[address] [place] [address] MCV (RBC) [Entitic vol] 91 fL Normal 80-100 [facility] Comment on above: Performed By: #### 5 8410-2 ####MELISA Galvan (41272)[facility] ()[address] [place] [address] Nucleated RBC/100 WBC (Bld) [Ratio] 0.0 /100 WBCs Normal 0.0-0.0 [facility] Comment on above: Performed By: #### 5 8410-2 ####MELISA Galvan ([id number])[facility] ()[address] [place] [address] Platelets (Bld) [#/Vol] 226 x10*3/uL Normal 150-450 [facility] Comment on above: Performed By: #### 5 8410-2 ####MELISA Galvan ([id number])[facility] ()[address] [place] [address] RBC (Bld) [#/Vol] 3.80 x10*6/uL Low 4.00-5.20 [facility] Comment on above: Performed By: #### 5 8410-2 ####MELISA Glavan (62952)[facility] ()[address] [place] [address] WBC (Bld) [#/Vol] 6.8 x10*3/uL Normal 4.4-11.3 [facility] Comment on above: Performed By: #### 5 8410-2 ####MELISA Galvan ([id number])[facility] ()[address] [place] [address] Clostridioides difficile tox in A+B tcdA+tcdB geneson 03-09-2023 C. difficile toxin A+B tcdA+tcdB genes HANK+probe Ql (Stl) Clostridioides difficile toxin A+B tcdA+tcdB genes Not Detected Normal Not Detected [facility] Comment on above: Order Comment: This test [...] Performed By: #### 8 0685-1 ####MELISA Galvan (50098)[facility] ()[address] [place] [address] Gastrointestinal pathogens i dentifiedon 03-09-2023 Gastrointestinal pathogens [...] Rotavirus RNA Not Detected Normal Not Detected [facility] Comment on above: Performed By: #### 5 2969-3 #### ALON Johnson ([id number]) [facility] ([facility]) [address] [place] [address] Glucose Test strip manual (B ld) [Mass/Vol]on 03-09-2023 Glucose [Mass/Vol] 82 mg/dL Normal 74-99 [facility] Comment on above: Performed By: #### 5 2969-3 #### ALON Johnson ([id number]) [facility] ([facility]) [address] [place] [address] Glucose [Mass/Vol] 91 mg/dL 74 - 99 mg/dL [facility] Interpretation and review of laboratory results Normal [facility] Glucose [Mass/Vol] 91 mg/dL Normal 74-99 [facility] Comment on above: Performed By: #### 5 2969-3 #### ALON Johsnon ([id number]) [facility] ([facility]) [address] [place] [address] Glucose [Mass/Vol] 83 mg/dL 74 - 99 mg/dL [facility] Interpretation and review of laboratory results Normal [facility] Glucose [Mass/Vol] 83 mg/dL Normal 74-99 [facility] Comment on above: Performed By: #### 2 341-6 ####MELISA Galvan ([id number])[facility] ()[address] [place] [address] Glucose [Mass/Vol] 82 mg/dL 74 - 99 mg/dL [facility] Interpretation and review of laboratory results Normal [facility] Glucose [Mass/Vol] 82 mg/dL Normal 74-99 [facility] Comment on above: Performed By: #### 2 341-6 ####MELISA Galvan ([id number])[facility] ()[address] [place] [address] Glucose [Mass/Vol] 120 mg/dL High 74 - 99 mg/dL [facility] Interpretation and review of laboratory results Abnormal [facility] Glucose [Mass/Vol] 120 mg/dL High 74-99 [facility] Comment on above: Performed By: #### 2 341-6 ####MELISA Galvan (56505)[facility] ()[address] [place] [address] Glucose [Mass/Vol] 62 mg/dL Low 74 - 99 mg/dL [facility] Interpretation and review of laboratory results Abnormal [facility] Glucose [Mass/Vol] 62 mg/dL Low 74-99 [facility] Comment on above: Performed By: #### 2 341-6 ####MELISA Galvan ([id number])[facility] (MW)[address] [place] [address] Basic metabolic 2000 panelon 03-08-2023 Anion gap [Moles/Vol] 8 mmol/L NINF - 19 mmol/L [facility] Calcium [Mass/Vol] 8.2 mg/dL Low 8.5 - 10.4 mg/dL [facility] Chloride [Moles/Vol] 106 mmol/L 97 - 107 mmol/L [facility] CO2 [Moles/Vol] 22 mmol/L Low 24 - 31 mmol/L [facility] Creatinine [Mass/Vol] 0.70 mg/dL 0.40 - 1.60 mg/dL [facility] eGFR - PINF [facility] Comment on above: Calculations of jessica mated GFR are performed using the 2020 CKD-EPI Study Refit equation without the race variable for the IDMS-Traceable creatinine methods. https://jasn.asnjournals.org/content//ASN.98819877 88 Glucose [Mass/Vol] 91 mg/dL 65 - 99 mg/dL [facility] Interpretation and review of laboratory results Abnormal [facility] Potassium [Moles/Vol] 3.7 mmol/L 3.4 - 5.1 mmol/L [facility] Sodium [Moles/Vol] 136 mmol/L 133 - 145 mmol/L [facility] Urea nitrogen [Mass/Vol] 3 mg/dL Low 8 - 25 mg/dL [facility] Anion gap [Moles/Vol] 8 mmol/L Normal <=19 [facility] Comment on above: Performed By: #### 2 4323-8 #### MELISA Galvan (99057) [facility] () [address] [place] [address] Calcium [Mass/Vol] 8.2 mg/dL Low 8.5-10.4 [facility] Comment on above: Performed By: #### 2 4323-8 #### MELISA Galvan (67357) [facility] () [address] [place] [address] Chloride [Moles/Vol] 106 mmol/L Normal 97-107 [facility] Comment on above: Performed By: #### 2 4323-8 #### MELISA Galvan (78939) [facility] () [address] [place] [address] CO2 [Moles/Vol] 22 mmol/L Low 24-31 [facility] Comment on above: Performed By: #### 2 4323-8 #### MELISA Galvan (89970) [facility] () [address] [place] [address] Creatinine [Mass/Vol] 0.70 mg/dL Normal 0.40-1.60 [facility] Comment on above: Performed By: #### 2 4323-8 #### MELISA Galvan (85903) [facility] () [address] [place] [address] GFR/1.73 sq M.predicted MDRD (S/P/Bld) [Vol rate/Area] mL/min/{1.73_m2} Normal >60 [facility] Comment on above: Result Comment: Calc ulations of estimated GFR are performed using the 2020 CKD-EPI Study Refit equation without the race variable for the IDMS-Traceable creatinine methods. https://jasn.asnjournals.org/content/early/ASN.18365418 88 Performed By: #### 2 4323-8 #### MELISA Galvan (73165) [facility] () [address] [place] [address] Glucose [Mass/Vol] 91 mg/dL Normal 65-99 [facility] Comment on above: Performed By: #### 2 4323-8 #### MELISA Galvan (32390) [facility] () [address] [place] [address] Potassium [Moles/Vol] 3.7 mmol/L Normal 3.4-5.1 [facility] Comment on above: Performed By: #### 2 4323-8 #### MELISA Galvan (22441) [facility] () [address] [place] [address] Sodium [Moles/Vol] 136 mmol/L Normal 133-145 [facility] Comment on above: Performed By: #### 2 4323-8 #### MELISA Galvan (35394) [facility] () [address] [place] [address] Urea nitrogen [Mass/Vol] 3 mg/dL Low 8-25 [facility] Comment on above: Performed By: #### 2 4323-8 #### MELISA Galvan (11000) [facility] () [address] [place] [address] CBC panel Auto (Bld)on 03-08 Erythrocyte distribution width (RBC) [Ratio] 12.8 % 11.5 - 14.5 % [facility] Hematocrit (Bld) [Volume fraction] 32.2 % Low 36.0 - 46.0 % [facility] Hemoglobin (Bld) [Mass/Vol] 10.9 g/dL Low 12.0 - 16.0 g/dL [facility] Interpretation and review of laboratory results Abnormal [facility] MCH (RBC) [Entitic mass] 31.3 pg 26.0 - 34.0 pg [facility] MCHC (RBC) [Mass/Vol] 33.9 g/dL 32.0 - 36.0 g/dL [facility] MCV (RBC) [Entitic vol] 93 fL 80 - 100 fL [facility] Nucleated RBC/100 WBC (Bld) [Ratio] 0.0 % [facility] Platelets (Bld) [#/Vol] 171 10*3/uL [facility] RBC (Bld) [#/Vol] 3.48 10*6/uL [facility] WBC (Bld) [#/Vol] 4.2 10*3/uL [facility] Erythrocyte distribution width (RBC) [Ratio] 12.8 % Normal 11.5-14.5 [facility] Comment on above: Performed By: #### 2 4323-8 #### MELISA Galvan (37899) [facility] () [address] [place] [address] Hematocrit (Bld) [Volume fraction] 32.2 % Low 36.0-46.0 [facility] Comment on above: Performed By: #### 2 432-8 #### MELISA Galvan (48439) [facility] () [address] [place] [address] Hemoglobin (Bld) [Mass/Vol] 10.9 g/dL Low 12.0-16.0 [facility] Comment on above: Performed By: #### 2 432-8 #### MELISA Galvan (14685) [facility] () [address] [place] [address] MCH (RBC) [Entitic mass] 31.3 pg Normal 26.0-34.0 [facility] Comment on above: Performed By: #### 2 4323-8 #### MELISA Galvan (06062) [facility] () [address] [place] [address] MCHC (RBC) [Mass/Vol] 33.9 g/dL Normal 32.0-36.0 [facility] Comment on above: Performed By: #### 2 4323-8 #### MELISA Galvan (00791) [facility] () [address] [place] [address] MCV (RBC) [Entitic vol] 93 fL Normal 80-100 [facility] Comment on above: Performed By: #### 2 4323-8 #### MELISA Galvan (04499) [facility] () [address] [place] [address] Nucleated RBC/100 WBC (Bld) [Ratio] 0.0 /100 WBCs Normal 0.0-0.0 [facility] Comment on above: Performed By: #### 2 4323-8 #### MELISA Galvan (04419) [facility] () [address] [place] [address] Platelets (Bld) [#/Vol] 171 x10*3/uL Normal 150-450 [facility] Comment on above: Performed By: #### 2 4323-8 #### MELISA Galvan (16417) [facility] () [address] [place] [address] RBC (Bld) [#/Vol] 3.48 x10*6/uL Low 4.00-5.20 [facility] Comment on above: Performed By: #### 2 4323-8 #### MELISA Galvan (46019) [facility] () [address] [place] [address] WBC (Bld) [#/Vol] 4.2 x10*3/uL Low 4.4-11.3 [facility] Comment on above: Performed By: #### 2 4323-8 #### MELISA Galvan (77367) [facility] () [address] [place] [address] Glucose Test strip manual (B ld) [Mass/Vol]on 03-08-2023 Glucose [Mass/Vol] 89 mg/dL 74 - 99 mg/dL [facility] Interpretation and review of laboratory results Normal [facility] Glucose [Mass/Vol] 89 mg/dL Normal 74-99 [facility] Comment on above: Performed By: #### 2 341-6 ####MELISA Galvan (75797)[facility] ()[address] [place] [place] [address] Glucose [Mass/Vol] 85 mg/dL 74 - 99 mg/dL [facility] Interpretation and review of laboratory results Normal [facility] Glucose [Mass/Vol] 85 mg/dL Normal 74-99 [facility] Comment on above: Performed By: #### 2 341-6 ####MELISA Galvan (50562)[facility] ()[address] [place] [address] Glucose [Mass/Vol] 151 mg/dL High 74 - 99 mg/dL [facility] Interpretation and review of laboratory results Abnormal [facility] Glucose [Mass/Vol] 151 mg/dL High 74-99 [facility] Comment on above: Performed By: #### 2 341-6 ####MELISA Galvan ([id number])[facility] ()[address] [place] [place] [address] Glucose [Mass/Vol] 89 mg/dL 74 - 99 mg/dL [facility] Interpretation and review of laboratory results Normal [facility] Glucose [Mass/Vol] 89 mg/dL Normal 74-99 [facility] Comment on above: Performed By: #### 2 4323-8 #### MELISA Galvan (87665) [facility] () [address] [place] [address] Glucose [Mass/Vol] 97 mg/dL 74 - 99 mg/dL [facility] Interpretation and review of laboratory results Normal [facility] Glucose [Mass/Vol] 97 mg/dL Normal 74-99 [facility] Comment on above: Performed By: #### 2 4323-8 #### MELISA Galvan (46702) [facility] () [address] [place] [address] Glucose [Mass/Vol] 102 mg/dL High 74 - 99 mg/dL [facility] Interpretation and review of laboratory results [facility] Glucose [Mass/Vol] 102 mg/dL High 74-99 [facility] Comment on above: Performed By: #### 2 4323-8 #### MELISA Galvan (34597) [facility] (MW) [address] [place] [address] Surgical pathology studyOrde red By: Melisa Mc on 03-08-2023 Laboratory comment John (Report) b3swyDRySEPzo9fqPIW mbGFuZzEwMzNcZnRuYm pcdWMxIHtccnRmMVxzc 3NcK8LiFyMxMDptsgKb XGRlZmxhbmcxMDMzXGZ 0bmJqXHVjMVxkZWZmMH piWe8mpYUmrCiiNvHuW LEth1qtdaEYLCmaCGYH XHa3a1guCGGrZsQ1wZV gPWiqW2usgrGxyDPnM8 Nfk2WsZSl9rD22ZEKcz S7awFThGCxzvxNnQgT3 JVypOLMkUyK5FSSynFJ vYVDmO5ghCUQvNLieHL FuXTjcuDXcQIL3jSpmb 5R5cCPuwPNcgDybDbUs PjQmXqDBv1NeUJz2vKx wP7DfXYGcKaV6dSXzBZ VoMOugQRBxXSKbnxP7o R40GVcvjxE1mGAay5Ej n74ag431kX6cpLAeFVH 3MTIyNDBccGFwZXJoMT J2QQUdvRLjF2coKvOyo SDnY0MpWwLkwUKiZ8Tf PuBqyDKyV9TeIaKxwXR kWNAbjWK0AYyhn717TO G1IaWjYS0dA8Vff9U5q L1dgCPiGWYegRZtDkJf IVHbky4hhZBhXUivf7N yIUO4zxV1vQZngBOcRZ KrOR73Nbvjz1NqPnzpQ KZ6MTVbpsWyg0Hyv4il ZrLhskNpN5vbK2WtGIT oZWFkXHBnYnJkcmZvb3 Wbo1KkzAMlmFy7i8xwB KZpNNQgxVdua9tbOTO9 YBCbA2X9eQOfs6qtIGp tLWPluQQ3ygG1BUhrKL CqqqA3pvW2JMgoFFVaw ZD1smG6LRftHMVlRpU2 gdK6MPioWEKaNQO9RqK hKRCdg7ZowhgoJwYei5 TmwBVnYNwsJ99xc951T QDvioWfD5sehKKfjixs kSMtivtbGNrsokI3MTZ sXHBsYWluXGYxXGZzMj BcbGFuZzEwMzNcaGlja FxmMVxkYmNoXGYxXGxv B7jvIsEbDoMvQWHZcAS 6eELrg3dvswX4qZRjEW 3oQPOetYDhgiCel2P7H XA5vZNfgP4qtRUfFJOa vQGrjqLogc13aNLkgTM 8FLZcXFWcpINhfQ7tZX TtUJFRyS5ghMTErjKnm bKlJLRbaRwkiv9DcFZh hk9yxQHcM0BxxSubcLH zIHRoYXQgdGhleSBoYX DuTQTgnabun7YsZUQxo WZiL7VnYC8tDUAkks27 [facility] Work Phone: Pathology report Cancer Narrative Surgical Pathology Case: [id number] Authorizing Provider: Sherry Magaña MD Collected: 03/05/2023 1125 Ordering Location: [facility] Received: 03/05/2023 1314 Center [place] Pathologist: Melisa Mc MD Specimen: LIGAMENT, Median Arcuate Ligament [facility] Work Phone: Pathology report final diagnosis Narrative h9zawNGyUQImyJWsQCI wNFxhbnNpXHNwbHRwZ3 XzmzytPHtuSD6qPL1fc GxhdHRveWVuXGRlZmYw e9lay731zWRmo9yxSYN GJWwkJFUPSJl6b4vhPJ QRozuugCo4eSurR40jr 1K5ZjwsG7viJXDsGAsr KVHkJJpucGTpFPy3OTY hcGVydzEyMjQwXHBhcG NryAC5UQWmUE1ywiypW HtoFJzbUKHttuC2LATe sZYlE0CrNRLuFI9dksq wNKU6FRrcQLRrWUJ0Vr WnNDQba0Hvsos8QnFrx Vw5w1txOIYaIIIuyOij j1dzTPK4ORDlpAJnI8i siF7nKDLqMY7skhagm9 wgFDvbQIwdTVZxfOD8k iP8VTGruLXiL7GsgO7g NDQwXHBhcmRccGxhaW5 cZjFcZnMyMlxjZjFccG BcYY9HKFmYRyBYZvGFI IBQYRnKT2WZCY7PTRKT TFCXW0hRDmkebZUtZXP iHoDYhTTtt3RihWYga4 VnZR9lhOCodUBetnKhf 24vqInvJeZvC12lznJh k5DbcLcrgKueaKHnlQe la9GjIRWcn2K4ZUqsW1 xpbmljYWxseSBtZWRpY M1uAYSfqIC7ZVFpwNgj yCAdsJOelI9cwh4jPI1 ccGFyfQ== [facility] Work Phone: Pathology report gross observation Narrative f1jgqBAnEHMctWWQMOB 6DBKuHK2dsGiqmJs8yV iyEGJdntO3fXReJAtfr 9daGPB0f3drskNRQkzu NJJjPP4xEMmfGZSzMK0 nZmUwXGRlZmYxXHBhcG VydzEyMjQwXHBhcGVya PL5JMIjVT9wxedyCYvl NXqfXGUdxjW2IHGnzJQ vQ0NbSIGqDX5snbriJP Z2UPXNFuvgGy7pjQYbt CANCntcZjFcZmNoYXJz TRJyVKBbfYaaE8Ggj2Y lPXg9fY9Nw0teMbnbL7 ihbsVagHUgRj9zfHCWm kustLi2dA4GUBMjR8Os BC5Le5dlDOCuyQLdMWP 5LYdvc9qmRQdrPQP4ON DrRMPsIDPxRO4YEgNkM IppXZZuVMDbGMq2RNr5 BBIODNYuHbN7APR4QMf 3KRl0IRnyqpqnDOn5XM WaSUfylINxJM7faNiyX xzhtUvkz0GhhIPxNYSn IFxcaWQgNTEwMDIgXFx mRlAEIbZuQpL8SxXeOA LyBaM3QTp7YXZOMaRqY zGvLQAcUul5PGDwHCd2 GGs2HJtDYyR2KkP3OQq 6BdqmYSL8KdHuTDvhiA BcXHQgMiBcXHNzIDMgX VpafLStZA4diSgeQLDs AL2WOWCdZNmdZWOvoCT VURZ4ZZ1eZJKRPawiuY AbWGWhYQhulEUeB9lfM jJcZnMyMCBBOiBSZWNl aXZlZCBmcmVzaCBsYWJ lbGVkIHdpdGggdGhlIH AdbYnetxOgsmHtSW7dY GNsKUHnq2VkfEGdfJXf aQ0mIWMkBV3sUDZvUSB kKB0kYVKzgZE7GBUzqJ dhbWVudCIsIGFyZSAyI GlycmVndWxhciBhbmQg vBZaFQDsREIns0W1NER fr0M2SXAwugGzbXMdbK UumMObl8FviB9zMZCgG DTcyQN9RHBbGwY4RCXg VlWtqDKbtdLoK7sjVUw cuQVoQWXMaOHvd3AmG0 tsXJ3msHZzo4ZpxCwwx mVkIGFuZCBlbnRpcmVs lLNyjLErrOH6GFVknB5 zLJQvONXxHAK2VE4jlM UrWR2YQXJWJKRiytMMO bcdZXUnEXbNeu7dteTx kAMcQZJ7lF9pEEAwmpZ yzk5pYDDgvKadjHXtLP 3IFB9lqiHaa2x8bLMQt 3NwaXRhbHMgTGFrZSBX EUV4SU0fWPwfGUrgQ0F xdTGeSQEnjwITYmK7AH TdLOO5W7wfHMGJmcXpv XEskFQiDG4NX8qceI85 B6ytoIpdK5kcuzK5NIM 5JPkqJDPsJWdcy3ZqNR xlcGljWHNhMzAgDQpQa N5bMNhtDBK7VRwlJWRi LTYwMjUgIEZheDogKDQ 2TEsiYaAtPIG0VYHLSm izaUeePwLorBYyQvT8A PXraDUhGDJ3JQ9xxNeh VXCfT0OpV6YjxuN7LHI jvsCXUgxvZYHkFR1ZIL YfSKpoTF6RsE== [facility] Work Phone: Pathology report relevant history Narrative d7aikVMqDIYkm8zyXHX mbGFuZzEwMzNcZnRuYm x9BBOcglO3Nev6GKLqA GvlcX3pMIKoCXwwZ0fe zsMbpNHeN2Sgu0AfIPd 9fX6tvGiavX2bYcCsFw CbBWADujYse9EcKNkgI 54nt3ztCaubBENvOYGz aYDjAYVtZ1VmgTWstCl xQU3tgnEpj0hiMSXvpK EwVUCOQv8FP0EtINwAC ztzHY6oiNFoZK2= [facility] Work Phone: [facility] Work Phone: Basic metabolic 2000 panelon 03-07-2023 Anion gap [Moles/Vol] 7 mmol/L NINF - 19 mmol/L [facility] Calcium [Mass/Vol] 8.0 mg/dL Low 8.5 - 10.4 mg/dL [facility] Chloride [Moles/Vol] 111 mmol/L High 97 - 107 mmol/L [facility] CO2 [Moles/Vol] 21 mmol/L Low 24 - 31 mmol/L [facility] Creatinine [Mass/Vol] 0.70 mg/dL 0.40 - 1.60 mg/dL [facility] eGFR - PINF [facility] Comment on above: Calculations of jessica mated GFR are performed using the 2020 CKD-EPI Study Refit equation without the race variable for the IDMS-Traceable creatinine methods. https://jasn.asnjournals.org/content//ASN.87551765 88 Glucose [Mass/Vol] 100 mg/dL High 65 - 99 mg/dL [facility] Interpretation and review of laboratory results Abnormal [facility] Potassium [Moles/Vol] 3.9 mmol/L 3.4 - 5.1 mmol/L [facility] Sodium [Moles/Vol] 139 mmol/L 133 - 145 mmol/L [facility] Urea nitrogen [Mass/Vol] 4 mg/dL Low 8 - 25 mg/dL [facility] Anion gap [Moles/Vol] 7 mmol/L Normal <=19 [facility] Comment on above: Performed By: #### 5 7021-8 #### MELISA Galvan ([id number]) [facility] () [address] [place] [address] Calcium [Mass/Vol] 8.0 mg/dL Low 8.5-10.4 [facility] Comment on above: Performed By: #### 5 7021-8 #### MELISA Galvan ([id number]) [facility] () [address] [place] [address] Chloride [Moles/Vol] 111 mmol/L High 97-107 [facility] Comment on above: Performed By: #### 5 7021-8 #### MELISA Galvan ([id number]) [facility] () [address] [place] [address] CO2 [Moles/Vol] 21 mmol/L Low 24-31 [facility] Comment on above: Performed By: #### 5 7021-8 #### MELISA Galvan ([id number]) [facility] () [address] [place] [address] Creatinine [Mass/Vol] 0.70 mg/dL Normal 0.40-1.60 [facility] Comment on above: Performed By: #### 5 7021-8 #### MELISA Galvan ([id number]) [facility] () [address] [place] [address] GFR/1.73 sq M.predicted MDRD (S/P/Bld) [Vol rate/Area] mL/min/{1.73_m2} Normal >60 [facility] Comment on above: Result Comment: Calc ulations of estimated GFR are performed using the 2020 CKD-EPI Study Refit equation without the race variable for the IDMS-Traceable creatinine methods. https://jasn.asnjournals.org/content/early//ASN.22045869 88 Performed By: #### 5 7021-8 #### MELISA Galvan ([id number]) [facility] () [address] [place] [address] Glucose [Mass/Vol] 100 mg/dL High 65-99 [facility] Comment on above: Performed By: #### 5 7021-8 #### MELISA Galvan ([id number]) [facility] () [address] [place] [address] Potassium [Moles/Vol] 3.9 mmol/L Normal 3.4-5.1 [facility] Comment on above: Performed By: #### 5 7021-8 #### MELISA Galvan ([id number]) [facility] () [address] [place] [address] Sodium [Moles/Vol] 139 mmol/L Normal 133-145 [facility] Comment on above: Performed By: #### 5 7021-8 #### MELISA Galvan ([id number]) [facility] () [address] [place] [address] Urea nitrogen [Mass/Vol] 4 mg/dL Low 8-25 [facility] Comment on above: Performed By: #### 5 7021-8 #### MELISA Galvan ([id number]) [facility] () [address] [place] [address] CBC panel Auto (Bld)on 03-07 Erythrocyte distribution width (RBC) [Ratio] 13.2 % 11.5 - 14.5 % [facility] Hematocrit (Bld) [Volume fraction] 33.3 % Low 36.0 - 46.0 % [facility] Hemoglobin (Bld) [Mass/Vol] 11.0 g/dL Low 12.0 - 16.0 g/dL [facility] Interpretation and review of laboratory results Abnormal [facility] MCH (RBC) [Entitic mass] 31.3 pg 26.0 - 34.0 pg [facility] MCHC (RBC) [Mass/Vol] 33.0 g/dL 32.0 - 36.0 g/dL [facility] MCV (RBC) [Entitic vol] 95 fL 80 - 100 fL [facility] Nucleated RBC/100 WBC (Bld) [Ratio] 0.0 % [facility] Platelets (Bld) [#/Vol] 155 10*3/uL [facility] RBC (Bld) [#/Vol] 3.51 10*6/uL Low [facility] WBC (Bld) [#/Vol] 5.1 10*3/uL [facility] Erythrocyte distribution width (RBC) [Ratio] 13.2 % Normal 11.5-14.5 [facility] Comment on above: Performed By: #### 5 7021-8 #### MELISA Galvan ([id number]) [facility] () [address] [place] [address] Hematocrit (Bld) [Volume fraction] 33.3 % Low 36.0-46.0 [facility] Comment on above: Performed By: #### 5 7021-8 #### MELISA Galvan (79039) [facility] () [address] [place] [address] Hemoglobin (Bld) [Mass/Vol] 11.0 g/dL Low 12.0-16.0 [facility] Comment on above: Performed By: #### 5 7021-8 #### MELISA Galvan ([id number]) [facility] () [address] [place] [address] MCH (RBC) [Entitic mass] 31.3 pg Normal 26.0-34.0 [facility] Comment on above: Performed By: #### 5 7021-8 #### MELISA Galvan ([id number]) [facility] () [address] [place] [address] MCHC (RBC) [Mass/Vol] 33.0 g/dL Normal 32.0-36.0 [facility] Comment on above: Performed By: #### 5 7021-8 #### MELISA Galvan ([id number]) [facility] () [address] [place] [address] MCV (RBC) [Entitic vol] 95 fL Normal 80-100 [facility] Comment on above: Performed By: #### 5 7021-8 #### MELISA Galvan ([id number]) [facility] () [address] [place] [address] Nucleated RBC/100 WBC (Bld) [Ratio] 0.0 /100 WBCs Normal 0.0-0.0 [facility] Comment on above: Performed By: #### 5 7021-8 #### MELISA Galvan ([id number]) [facility] () [address] [place] [address] Platelets (Bld) [#/Vol] 155 x10*3/uL Normal 150-450 [facility] Comment on above: Performed By: #### 5 7021-8 #### MELISA Galvan ([id number]) [facility] () [address] [place] [address] RBC (Bld) [#/Vol] 3.51 x10*6/uL Low 4.00-5.20 [facility] Comment on above: Performed By: #### 5 7021-8 #### MELISA Galvan ([id number]) [facility] () [address] [place] [address] WBC (Bld) [#/Vol] 5.1 x10*3/uL Normal 4.4-11.3 [facility] Comment on above: Performed By: #### 5 7021-8 #### MELISA Galvan ([id number]) [facility] () [address] [place] [address] Glucose Test strip manual (B ld) [Mass/Vol]on 03-07-2023 Glucose [Mass/Vol] 125 mg/dL High 74 - 99 mg/dL [facility] Interpretation and review of laboratory results Abnormal [facility] Glucose [Mass/Vol] 125 mg/dL High 74-99 [facility] Comment on above: Performed By: #### 2 4323-8 #### MELISA Galvan (52085) [facility] () [address] [place] [address] Glucose [Mass/Vol] 117 mg/dL High 74 - 99 mg/dL [facility] Interpretation and review of laboratory results Abnormal [facility] Glucose [Mass/Vol] 117 mg/dL High 74-99 [facility] Comment on above: Performed By: #### 2 4323-8 #### MELISA Galvan ([id number]) [facility] () [address] [place] [address] Glucose [Mass/Vol] 98 mg/dL 74 - 99 mg/dL [facility] Interpretation and review of laboratory results Normal [facility] Glucose [Mass/Vol] 98 mg/dL Normal 74-99 [facility] Comment on above: Performed By: #### 2 4323-8 #### MELISA Galvan ([id number]) [facility] () [address] [place] [address] Glucose [Mass/Vol] 98 mg/dL 74 - 99 mg/dL [facility] Interpretation and review of laboratory results Normal [facility] Glucose [Mass/Vol] 98 mg/dL Normal 74-99 [facility] Comment on above: Performed By: #### 2 4323-8 #### MELISA Galvan ([id number]) [facility] () [address] [place] [address] Glucose [Mass/Vol] 108 mg/dL High 74 - 99 mg/dL [facility] Interpretation and review of laboratory results Abnormal [facility] Glucose [Mass/Vol] 108 mg/dL High 74-99 [facility] Comment on above: Performed By: #### 5 7021-8 #### MELISA Galvan ([id number]) [facility] () [address] [place] [address] Glucose [Mass/Vol] 119 mg/dL High 74 - 99 mg/dL [facility] Interpretation and review of laboratory results Abnormal [facility] Basic metabolic 2000 panelon 03-06-2023 Anion gap [Moles/Vol] 7 mmol/L NINF - 19 mmol/L [facility] Calcium [Mass/Vol] 8.1 mg/dL Low 8.5 - 10.4 mg/dL [facility] Chloride [Moles/Vol] 109 mmol/L High 97 - 107 mmol/L [facility] CO2 [Moles/Vol] 21 mmol/L Low 24 - 31 mmol/L [facility] Creatinine [Mass/Vol] 0.70 mg/dL 0.40 - 1.60 mg/dL [facility] eGFR - PINF [facility] Comment on above: Calculations of jessica mated GFR are performed using the 2020 CKD-EPI Study Refit equation without the race variable for the IDMS-Traceable creatinine methods. https://jasn.asnjournals.org/content//ASN.85494109 88 Glucose [Mass/Vol] 149 mg/dL High 65 - 99 mg/dL [facility] Interpretation and review of laboratory results Abnormal [facility] Potassium [Moles/Vol] 3.7 mmol/L 3.4 - 5.1 mmol/L [facility] Sodium [Moles/Vol] 137 mmol/L 133 - 145 mmol/L [facility] Urea nitrogen [Mass/Vol] 5 mg/dL Low 8 - 25 mg/dL [facility] Anion gap [Moles/Vol] 7 mmol/L Normal <=19 [facility] Comment on above: Performed By: #### 5 7021-8 #### MELISA Galvan ([id number]) [facility] () [address] [place] [address] Calcium [Mass/Vol] 8.1 mg/dL Low 8.5-10.4 [facility] Comment on above: Performed By: #### 5 7021-8 #### MELISA Galvan ([id number]) [facility] () [address] [place] [address] Chloride [Moles/Vol] 109 mmol/L High 97-107 [facility] Comment on above: Performed By: #### 5 7021-8 #### MELISA Galvan (12559) [facility] () [address] [place] [address] CO2 [Moles/Vol] 21 mmol/L Low 24-31 [facility] Comment on above: Performed By: #### 5 7021-8 #### MELISA Galvan (94990) [facility] () [address] [place] [address] Creatinine [Mass/Vol] 0.70 mg/dL Normal 0.40-1.60 [facility] Comment on above: Performed By: #### 5 7021-8 #### MELISA Galvan ([id number]) [facility] () [address] [place] [address] GFR/1.73 sq M.predicted MDRD (S/P/Bld) [Vol rate/Area] mL/min/{1.73_m2} Normal >60 [facility] Comment on above: Result Comment: Calc ulations of estimated GFR are performed using the 2020 CKD-EPI Study Refit equation without the race variable for the IDMS-Traceable creatinine methods. https://jasn.asnjournals.org/content//ASN.18754281 88 Performed By: #### 5 7021-8 #### MELISA Galvan ([id number]) [facility] () [address] [place] [address] Glucose [Mass/Vol] 149 mg/dL High 65-99 [facility] Comment on above: Performed By: #### 5 7021-8 #### MELISA Galvan (55723) [facility] () [address] [place] [address] Potassium [Moles/Vol] 3.7 mmol/L Normal 3.4-5.1 [facility] Comment on above: Performed By: #### 5 7021-8 #### MELISA Galvan ([id number]) [facility] () [address] [place] [address] Sodium [Moles/Vol] 137 mmol/L Normal 133-145 [facility] Comment on above: Performed By: #### 5 7021-8 #### MELISA Galvan (81528) [facility] () [address] [place] [address] Urea nitrogen [Mass/Vol] 5 mg/dL Low 8-25 [facility] Comment on above: Performed By: #### 5 7021-8 #### MELISA Galvan (66325) [facility] () [address] [place] [address] CBC panel Auto (Bld)on 03-06 Erythrocyte distribution width (RBC) [Ratio] 12.9 % 11.5 - 14.5 % [facility] Hematocrit (Bld) [Volume fraction] 35.1 % Low 36.0 - 46.0 % [facility] Hemoglobin (Bld) [Mass/Vol] 11.8 g/dL Low 12.0 - 16.0 g/dL [facility] Interpretation and review of laboratory results Abnormal [facility] MCH (RBC) [Entitic mass] 30.8 pg 26.0 - 34.0 pg [facility] MCHC (RBC) [Mass/Vol] 33.6 g/dL 32.0 - 36.0 g/dL [facility] MCV (RBC) [Entitic vol] 92 fL 80 - 100 fL [facility] Nucleated RBC/100 WBC (Bld) [Ratio] 0.0 % [facility] Platelets (Bld) [#/Vol] 179 10*3/uL [facility] RBC (Bld) [#/Vol] 3.83 10*6/uL Low [facility] WBC (Bld) [#/Vol] 5.5 10*3/uL [facility] Erythrocyte distribution width (RBC) [Ratio] 12.9 % Normal 11.5-14.5 [facility] Comment on above: Performed By: #### 2 4356-8 #### MELISA Galvan (33119) [facility] () [address] [place] [address] Hematocrit (Bld) [Volume fraction] 35.1 % Low 36.0-46.0 [facility] Comment on above: Performed By: #### 2 4356-8 #### MELISA Galvan (18855) [facility] () [address] [place] [address] Hemoglobin (Bld) [Mass/Vol] 11.8 g/dL Low 12.0-16.0 [facility] Comment on above: Performed By: #### 2 4356-8 #### MELISA Galvan (54956) [facility] () [address] [place] [address] MCH (RBC) [Entitic mass] 30.8 pg Normal 26.0-34.0 [facility] Comment on above: Performed By: #### 2 4356-8 #### MELISA Galvan (52963) [facility] () [address] [place] [address] MCHC (RBC) [Mass/Vol] 33.6 g/dL Normal 32.0-36.0 [facility] Comment on above: Performed By: #### 2 4356-8 #### MELISA Galvan ([id number]) [facility] () [address] [place] [address] MCV (RBC) [Entitic vol] 92 fL Normal 80-100 [facility] Comment on above: Performed By: #### 2 4356-8 #### MELISA Galvan (34730) [facility] () [address] [place] [address] Nucleated RBC/100 WBC (Bld) [Ratio] 0.0 /100 WBCs Normal 0.0-0.0 [facility] Comment on above: Performed By: #### 2 4356-8 #### MELISA Galvan (63076) [facility] () [address] [place] [address] Platelets (Bld) [#/Vol] 179 x10*3/uL Normal 150-450 [facility] Comment on above: Performed By: #### 2 4356-8 #### MELISA Galvan (39677) [facility] () [address] [place] [address] RBC (Bld) [#/Vol] 3.83 x10*6/uL Low 4.00-5.20 [facility] Comment on above: Performed By: #### 2 4356-8 #### MELISA Galvan (36021) [facility] () [address] [place] [address] WBC (Bld) [#/Vol] 5.5 x10*3/uL Normal 4.4-11.3 [facility] Comment on above: Performed By: #### 2 4356-8 #### MELISA Galvan (04575) [facility] () [address] [place] [address] Glucose Test strip manual (B ld) [Mass/Vol]on 03-06-2023 Glucose [Mass/Vol] 119 mg/dL High 74-99 [facility] Comment on above: Performed By: #### 5 7021-8 #### MELISA Galvan (80371) [facility] () [address] [place] [address] Glucose [Mass/Vol] 103 mg/dL High 74 - 99 mg/dL [facility] Interpretation and review of laboratory results Abnormal [facility] Glucose [Mass/Vol] 103 mg/dL High 74-99 [facility] Comment on above: Performed By: #### 5 7021-8 #### MELISA Galvan (99616) [facility] () [address] [place] [address] Glucose [Mass/Vol] 119 mg/dL High 74 - 99 mg/dL [facility] Interpretation and review of laboratory results Abnormal [facility] Glucose [Mass/Vol] 119 mg/dL High 74-99 [facility] Comment on above: Performed By: #### 5 7021-8 #### MELISA Galvan (76369) [facility] () [address] [place] [address] Glucose [Mass/Vol] 108 mg/dL High 74 - 99 mg/dL [facility] Interpretation and review of laboratory results Abnormal [facility] Glucose [Mass/Vol] 108 mg/dL High 74-99 [facility] Comment on above: Performed By: #### 5 7021-8 #### MELISA Galvan (33473) [facility] () [address] [place] [address] Glucose [Mass/Vol] 113 mg/dL High 74 - 99 mg/dL [facility] Interpretation and review of laboratory results Abnormal [facility] Glucose [Mass/Vol] 113 mg/dL High 74-99 [facility] Comment on above: Performed By: #### 5 7021-8 #### MELISA Galvan (90145) [facility] () [address] [place] [address] Glucose [Mass/Vol] 152 mg/dL High 74 - 99 mg/dL [facility] Interpretation and review of laboratory results Abnormal [facility] Glucose [Mass/Vol] 152 mg/dL High 74-99 [facility] Comment on above: Performed By: #### 2 4356-8 #### MELISA Galvan (80613) [facility] () [address] [place] [address] Magnesiumon 03-06-2023 Magnesium [Mass/Vol] 1.70 mg/dL 1.60 - 3.10 mg/dL [facility] Magnesium [Mass/Vol] 1.70 mg/dL Normal 1.60-3.10 [facility] Comment on above: Performed By: #### 2 4356-8 #### MELISA Galvan (37911) [facility] () [address] [place] [address] No Panel Informationon 03-06 Interpretation and review of laboratory results Normal [facility] Phosphateon 03-06-2023 Phosphate [Mass/Vol] 3.0 mg/dL Normal 2.5-4.5 [facility] Comment on above: Performed By: #### 2 4356-8 #### MELISA Galvan (26031) [facility] () [address] [place] [address] Phosphoruson 03-06-2023 Phosphate [Mass/Vol] 3.0 mg/dL 2.5 - 4.5 mg/dL [facility] XR CHEST 1 VIEWon 03-06-2023 XR CHEST 1 VIEW Interpreted By: Sara Zarate, STUDY: XR CHEST 1 VIEW; 03/06/2023 7:32 am INDICATION: Signs/Symptoms:post op COMPARISON: None ACCESSION NUMBER(S): [id number] ORDERING CLINICIAN: JASON FOSTER TECHNIQUE: Frontal and [...] Sara Zarate 03/06/2023 1:48 PM Dictation workstation: [id number] Normal [facility] XR Chest Single viewon 03-06 Appliance positioning as noted above. No consolidation. Signed by: Sara Zarate 03/06/2023 1:48 PM Dictation workstation: [id number] Interpreted By: Sara Zarate, STUDY: XR CHEST 1 VIEW; 03/06/2023 7:32 am INDICATION: Signs/Symptoms:post op COMPARISON: None ACCESSION NUMBER(S): [id number] ORDERING CLINICIAN: JASON FOSTER TECHNIQUE: Frontal and [...] INDICATION: Signs/Symptoms:post op COMPARISON: None ACCESSION NUMBER(S): [id number] ORDERING CLINICIAN: JASON FOSTER TECHNIQUE: Frontal and [...] Sara Zarate 03/06/2023 1:48 PM Dictation workstation: [id number] [facility] Work Phone: Radiology Study observation (narrative) [facility] Work Phone: XR Chest Single viewOrdered By: Sara Zarate on 03-06-2023 [facility] Work Phone: Basic metabolic 2000 panelon 03-05-2023 Anion gap [Moles/Vol] 13 mmol/L NINF - 19 mmol/L [facility] Calcium [Mass/Vol] 8.0 mg/dL Low 8.5 - 10.4 mg/dL [facility] Chloride [Moles/Vol] 107 mmol/L 97 - 107 mmol/L [facility] CO2 [Moles/Vol] 18 mmol/L Low 24 - 31 mmol/L [facility] Creatinine [Mass/Vol] 0.70 mg/dL 0.40 - 1.60 mg/dL [facility] eGFR - PINF [facility] Comment on above: Calculations of jessica mated GFR are performed using the 2020 CKD-EPI Study Refit equation without the race variable for the IDMS-Traceable creatinine methods. https://jasn.asnjournals.org/content/early/ASN.26578473 88 Glucose [Mass/Vol] 107 mg/dL High 65 - 99 mg/dL [facility] Interpretation and review of laboratory results Abnormal [facility] Potassium [Moles/Vol] 3.6 mmol/L 3.4 - 5.1 mmol/L [facility] Sodium [Moles/Vol] 138 mmol/L 133 - 145 mmol/L [facility] Urea nitrogen [Mass/Vol] 10 mg/dL 8 - 25 mg/dL [facility] Anion gap [Moles/Vol] 13 mmol/L Normal <=19 [facility] Comment on above: Performed By: #### 2 4356-8 #### MELISA Galvan ([id number]) [facility] () [address] [place] [address] Calcium [Mass/Vol] 8.0 mg/dL Low 8.5-10.4 [facility] Comment on above: Performed By: #### 2 4356-8 #### MELISA Galvan (22091) [facility] () [address] [place] [address] Chloride [Moles/Vol] 107 mmol/L Normal 97-107 [facility] Comment on above: Performed By: #### 2 4356-8 #### MELISA Galvan (93412) [facility] () [address] [place] [address] CO2 [Moles/Vol] 18 mmol/L Low 24-31 [facility] Comment on above: Performed By: #### 2 4356-8 #### MELISA Galvan ([id number]) [facility] () [address] [place] [address] Creatinine [Mass/Vol] 0.70 mg/dL Normal 0.40-1.60 [facility] Comment on above: Performed By: #### 2 4356-8 #### MELISA Galvan ([id number]) [facility] () [address] [place] [address] GFR/1.73 sq M.predicted MDRD (S/P/Bld) [Vol rate/Area] mL/min/{1.73_m2} Normal >60 [facility] Comment on above: Result Comment: Calc ulations of estimated GFR are performed using the 2020 CKD-EPI Study Refit equation without the race variable for the IDMS-Traceable creatinine methods. https://jasn.asnjournals.org/content//ASN.[email or web address] 88 Performed By: #### 2 4356-8 #### MELISA Galvan ([id number]) [facility] () [address] [place] [address] Glucose [Mass/Vol] 107 mg/dL High 65-99 [facility] Comment on above: Performed By: #### 2 4356-8 #### MELISA Galvan ([id number]) [facility] () [address] [place] [address] Potassium [Moles/Vol] 3.6 mmol/L Normal 3.4-5.1 [facility] Comment on above: Performed By: #### 2 4356-8 #### MELISA Galvan ([id number]) [facility] () [address] [place], [place] [address] Sodium [Moles/Vol] 138 mmol/L Normal 133-145 [facility] Comment on above: Performed By: #### 2 4356-8 #### MELISA Galvan ([id number]) [facility] () [address] [place] [address] Urea nitrogen [Mass/Vol] 10 mg/dL Normal 8-25 [facility] Comment on above: Performed By: #### 2 4356-8 #### MELISA Galvan ([id number]) [facility] () [address] [place] [address] CBC panel Auto (Bld)on 03-05 Erythrocyte distribution width (RBC) [Ratio] 12.6 % 11.5 - 14.5 % [facility] Hematocrit (Bld) [Volume fraction] 34.8 % Low 36.0 - 46.0 % [facility] Hemoglobin (Bld) [Mass/Vol] 11.9 g/dL Low 12.0 - 16.0 g/dL [facility] Interpretation and review of laboratory results Abnormal [facility] MCH (RBC) [Entitic mass] 31.2 pg 26.0 - 34.0 pg [facility] MCHC (RBC) [Mass/Vol] 34.2 g/dL 32.0 - 36.0 g/dL [facility] MCV (RBC) [Entitic vol] 91 fL 80 - 100 fL [facility] Nucleated RBC/100 WBC (Bld) [Ratio] 0.0 % [facility] Platelets (Bld) [#/Vol] 182 10*3/uL [facility] RBC (Bld) [#/Vol] 3.82 10*6/uL Low [facility] WBC (Bld) [#/Vol] 8.4 10*3/uL [facility] Erythrocyte distribution width (RBC) [Ratio] 12.6 % Normal 11.5-14.5 [facility] Comment on above: Performed By: #### 5 8410-2 #### MELISA Galvan ([id number]) [facility] () [address] [place] [address] Hematocrit (Bld) [Volume fraction] 34.8 % Low 36.0-46.0 [facility] Comment on above: Performed By: #### 5 8410-2 #### MELISA Galvan (77161) [facility] () [address] [place] [address] Hemoglobin (Bld) [Mass/Vol] 11.9 g/dL Low 12.0-16.0 [facility] Comment on above: Performed By: #### 5 8410-2 #### MELISA Galvan (28902) [facility] () [address] [place] [address] MCH (RBC) [Entitic mass] 31.2 pg Normal 26.0-34.0 [facility] Comment on above: Performed By: #### 5 8410-2 #### MELISA Galvan ([id number]) [facility] () [address] [place] [address] MCHC (RBC) [Mass/Vol] 34.2 g/dL Normal 32.0-36.0 [facility] Comment on above: Performed By: #### 5 8410-2 #### MELISA Galvan ([id number]) [facility] () [address] [place] [address] MCV (RBC) [Entitic vol] 91 fL Normal 80-100 [facility] Comment on above: Performed By: #### 5 8410-2 #### MELISA Galvan () [facility] () [address] [place] [address] Nucleated RBC/100 WBC (Bld) [Ratio] 0.0 /100 WBCs Normal 0.0-0.0 [facility] Comment on above: Performed By: #### 5 8410-2 #### MELISA Galvan () [facility] () [address] [place] [address] Platelets (Bld) [#/Vol] 182 x10*3/uL Normal 150-450 [facility] Comment on above: Performed By: #### 5 8410-2 #### MELISA Galvan () [facility] () [address] [place] [address] RBC (Bld) [#/Vol] 3.82 x10*6/uL Low 4.00-5.20 [facility] Comment on above: Performed By: #### 5 8410-2 #### MELISA Galvan () [facility] () [address] [place] [address] WBC (Bld) [#/Vol] 8.4 x10*3/uL Normal 4.4-11.3 [facility] Comment on above: Performed By: #### 5 8410-2 #### MELISA Galvan ([id number]) [facility] () [address] [place] [address] Glucose Test strip manual (B ld) [Mass/Vol]on 03-05-2023 Glucose [Mass/Vol] 176 mg/dL High 74 - 99 mg/dL [facility] Interpretation and review of laboratory results Abnormal [facility] Glucose [Mass/Vol] 176 mg/dL High 74-99 [facility] Comment on above: Performed By: #### 2 4356-8 #### MELISA Galvan ([id number]) [facility] () [address] [place] [address] Glucose [Mass/Vol] 177 mg/dL High 74 - 99 mg/dL [facility] Interpretation and review of laboratory results Abnormal [facility] Glucose [Mass/Vol] 177 mg/dL High 74-99 [facility] Comment on above: Performed By: #### 2 4356-8 #### MELISA Galvan (01592) [facility] () [address] [place] [address] Glucose [Mass/Vol] 111 mg/dL High 74 - 99 mg/dL [facility] Interpretation and review of laboratory results Abnormal [facility] Glucose [Mass/Vol] 111 mg/dL High 74-99 [facility] Comment on above: Performed By: #### 2 4356-8 #### MELISA Galvan ([id number]) [facility] () [address] [place] [address] Magnesiumon 03-05-2023 Magnesium [Mass/Vol] 1.70 mg/dL 1.60 - 3.10 mg/dL [facility] Magnesium [Mass/Vol] 1.70 mg/dL Normal 1.60-3.10 [facility] Comment on above: Performed By: #### 2 4356-8 #### MELISA Galvan ([id number]) [facility] () [address] [place] [address] No Panel Informationon 03-05 Interpretation and review of laboratory results Normal [facility] Phosphateon 03-05-2023 Phosphate [Mass/Vol] 4.3 mg/dL Normal 2.5-4.5 [facility] Comment on above: Performed By: #### 2 4356-8 #### MELISA Galvan ([id number]) [facility] () [address] [place] [address] Phosphoruson 03-05-2023 Phosphate [Mass/Vol] 4.3 mg/dL 2.5 - 4.5 mg/dL [facility] Surgical pathology studyon 0 03-05-2023 Surgical pathology study Pathology report.total SEE COMMENT Surgical Pathology Case: [id number] Authorizing Provider: Sherry Magaña MD Collected: 03/05/2023 [...] sectioned and entirely submitted in 1 cassette. 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] VERAB/VERIFY ABORHon 024 ABO group Nom (Bld) O Normal [facility] Comment on above: Performed By: #### V ERAB #### MELISA Galvan ([id number]) [facility] ([facility]) [address] [place] [address] [place] D Ag Ql (Bld) Positive [facility] Comment on above: Performed By: #### V ERAB #### MELISA Galvan ([id number]) [facility] ([facility]) [address] [place], [place] [id number] US XR CHEST 1 VIEWon 03-05-2023 XR CHEST 1 VIEW Interpreted By: Baldomero Hendrickson, STUDY: XR CHEST 1 VIEW; 03/05/2023 3:11 pm INDICATION: CLINICAL INFORMATION: Signs/Symptoms:NG tube placement confirmation. COMPARISON: 03/05/2019 at 745 hours ACCESSION NUMBER(S): [id number] ORDERING CLINICIAN: DESMOND TIRADO TECHNIQUE: Portable chest [...] Baldomero Hendrickson 03/05/2023 3:31 PM Dictation workstation: [id number] [facility] XR CHEST 1 VIEW Interpreted By: Nya Ahmadi, STUDY: XR CHEST 1 VIEW 03/05/2023 7:51 am INDICATION: Signs/Symptoms:conf irm line placement COMPARISON: None available. ACCESSION NUMBER(S): [id number] ORDERING CLINICIAN: SERENA GEORGE TECHNIQUE: AP erect view of the chest FINDINGS: Right arm PICC line terminates in the SVC. There is no pneumothorax. The heart, mediastinum, and lungs are normally visualized. IMPRESSION: Right arm PICC line terminating in SVC without pneumothorax. No acute cardiopulmonary disease. Signed by: Nya Ahmadi 03/05/2023 7:54 AM Dictation workstation: [id number] [facility] XR Chest Single viewon 03-05 1. Status post NG tube insertion with the tube extending into the left upper quadrant. 2. Stable appearance of the PICC line. 3. No infiltrates are identified. MACRO: none Signed by: Baldomero Hendrickson 03/05/2023 3:31 PM Dictation workstation: [id number] [facility] Interpreted By: Baldomero Hendrickson, STUDY: XR CHEST 1 VIEW; 03/05/2023 3:11 pm INDICATION: CLINICAL INFORMATION: Signs/Symptoms:NG tube placement confirmation. COMPARISON: 03/05/2019 at 745 hours ACCESSION NUMBER(S): [id number] ORDERING CLINICIAN: DESMOND TIRADO TECHNIQUE: Portable chest [...] COMPARISON: 03/05/2019 at 745 hours ACCESSION NUMBER(S): [id number] ORDERING CLINICIAN: DESMOND TIRADO TECHNIQUE: Portable chest [...] Baldomero Hendrickson 03/05/2023 3:31 PM Dictation workstation: [id number] [facility] Work Phone: Radiology Study observation (narrative) [facility] Work Phone: Right arm PICC line terminating in SVC without pneumothorax. No acute cardiopulmonary disease. Signed by: Nya Ahmadi 03/05/2023 7:54 AM Dictation workstation: [id number] [facility] Interpreted By: Nya Ahmadi, STUDY: XR CHEST 1 VIEW 03/05/2023 7:51 am INDICATION: Signs/Symptoms:conf irm line placement COMPARISON: None available. ACCESSION NUMBER(S): [id number] ORDERING CLINICIAN: SERENA GEORGE TECHNIQUE: AP erect view of the chest FINDINGS: Right arm PICC line terminates in the SVC. There is no pneumothorax. The heart, mediastinum, and lungs are normally visualized. [facility] Nya Ahmadi MD - 03/05/2023 Interpreted By: Nya Ahmadi, STUDY: XR CHEST 1 VIEW 03/05/2023 7:51 am INDICATION: Signs/Symptoms:conf irm line placement COMPARISON: None available. ACCESSION NUMBER(S): [id number] ORDERING CLINICIAN: SERENA GEORGE TECHNIQUE: AP erect view of the chest FINDINGS: Right arm PICC line terminates in the SVC. There is no pneumothorax. The heart, mediastinum, and lungs are normally visualized. IMPRESSION: Right arm PICC line terminating in SVC without pneumothorax. No acute cardiopulmonary disease. Signed by: Nya Ahmadi 03/05/2023 7:54 AM Dictation workstation: [id number] [facility] Work Phone: Radiology Study observation (narrative) [facility] Work Phone: XR Chest Single viewOrdered By: Baldomero Hendrickson on 03-05-2023 [facility] Work Phone: XR Chest Single viewOrdered By: Nya Ahmadi on 03-05-2023 [facility] Work Phone: Basic metabolic 2000 panelon 03-02-2023 Anion gap [Moles/Vol] 14 mmol/L Normal <=19 [facility] Comment on above: Performed By: #### 2 4321-2 #### MELISA Galvan ([id number]) [facility] ([facility]) [address] [place] [address] Calcium [Mass/Vol] 9.0 mg/dL Normal 8.5-10.4 [facility] Comment on above: Performed By: #### 2 4321-2 #### MELISA Galvan (38999) [facility] () [address] [place] [address] Chloride [Moles/Vol] 107 mmol/L Normal 97-107 [facility] Comment on above: Performed By: #### 2 4321-2 #### MELISA Galvan (54503) [facility] () [address] [place] [address] CO2 [Moles/Vol] 21 mmol/L Low 24-31 [facility] Comment on above: Performed By: #### 2 4321-2 #### MELISA Galvan ([id number]) [facility] () [address] [place] [address] Creatinine [Mass/Vol] 0.80 mg/dL Normal 0.40-1.60 [facility] Comment on above: Performed By: #### 2 4321-2 #### MELISA Galvan (42765) [facility] () [address] [place] [address] GFR/1.73 sq M.predicted MDRD (S/P/Bld) [Vol rate/Area] mL/min/{1.73_m2} Normal >60 [facility] Comment on above: Result Comment: Calc ulations of estimated GFR are performed using the 2020 CKD-EPI Study Refit equation without the race variable for the IDMS-Traceable creatinine methods. https://jasn.asnjournals.org/content/early//ASN.65990274 88 Performed By: #### 2 4321-2 #### MELISA Galvan (14666) [facility] () [address] [place] [address] Glucose [Mass/Vol] 68 mg/dL Normal 65-99 [facility] Comment on above: Performed By: #### 2 4321-2 #### MELISA Galvan (40684) [facility] () [address] [place] [address] Potassium [Moles/Vol] 4.0 mmol/L Normal 3.4-5.1 [facility] Comment on above: Performed By: #### 2 4321-2 #### MELISA Galvan (49893) [facility] () [address] [place] [address] Sodium [Moles/Vol] 142 mmol/L Normal 133-145 [facility] Comment on above: Performed By: #### 2 4321-2 #### MELISA Galvan (06495) [facility] () [address] [place] [address] Urea nitrogen [Mass/Vol] 8 mg/dL Normal 8-25 [facility] Comment on above: Performed By: #### 2 4321-2 #### MELISA Galvan ([id number]) [facility] () [address] [place] [address] Blood type and Indirect anti body screen panel (Bld)on 03-02-2023 ABO group Nom (Bld) O Normal [facility] Comment on above: Performed By: #### 3 4532-2 #### MELISA Galvan (70505) [facility] ([facility]) [address] [place] [address] [place] Blood group antibody screen Ql Negative [facility] Comment on above: Performed By: #### 3 4532-2 #### MELISA Galvan (36209) [facility] ([facility]) [address] [place] [address] US D Ag Ql (Bld) Positive [facility] Comment on above: Performed By: #### 3 4532-2 #### MELISA Galvan ([id number]) [facility] ([facility]) [address] [place] [address] [place] Staphylococcus aureus.methic illin resistant isolateon 03-02-2023 MRSA isol Org specific cx Ql (Nose) Test: Staphylococcus aureus/MRSA colonization, Culture Specimen Source: Anterior Nares Specimen Type: Swab Specimen Date: 03/02/2023 3:17 PM Result Date: 03/04/2023 7:55 AM Result Status: Final result Abnormal: No Resulting Lab: [facility] [address] [place] [id number] CULTURE No Staphylococcus aureus isolated Normal [facility] Comment on above: Performed By: #### 5 2969-3 #### ALON Johnson ([id number]) [facility] ([facility]) [address] [place] [address] Alanine aminotransferase [En zymatic activity/volume] in Serum or PlasmaOrdered By: Roseline Mejia on 02-13-2023 ALT [Catalytic activity/Vol] 11 U/L Normal 7-52 [facility] Comment on above: Performed By: #### H EPATIC, MG, LIPASE, CMP, CBC #### [facility] [address] [place] [address] [place] Albumin [Mass/volume] in Ser um or Plasma by Bromocresol green (BCG) dye binding methoOrdered By: Roseline Mejia on 02-13-2023 Albumin BCG dye [Mass/Vol] 4.0 g/dL 3.5-5.7 [facility] Alkaline phosphatase [Enzyma tic activity/volume] in Serum or PlasmaOrdered By: Roseline Mejia on 02-13-2023 ALP [Catalytic activity/Vol] 55 U/L Normal 34-104 [facility] Comment on above: Performed By: #### H EPATIC, MG, LIPASE, CMP, CBC #### [facility] [address] [place] [address] [place] Aspartate aminotransferase [ Enzymatic activity/volume] in Serum or PlasmaOrdered By: Roseline Mejia on 02-13-2023 AST [Catalytic activity/Vol] 20 U/L Normal 13-39 [facility] Comment on above: Performed By: #### H EPATIC, MG, LIPASE, CMP, CBC #### [facility] [address] [place] [address] [place] Automated basophil %Ordered By: Roseline Mejia on 02-13-2023 Basophils/100 WBC (Bld) 1.2 % Normal . [facility] Comment on above: Performed By: #### H EPATIC, MG, LIPASE, CMP, CBC #### [address] Automated basophil countOrde red By: Roseline Mejia on 02-13-2023 Basophils (Bld) [#/Vol] 0.1 10*3/uL Normal 0.0-0.2 [facility] Comment on above: Result Comment: PERF ORMED BY: [place] [address] PATHOLOGIST MULTINEEDLE SHIRRER BAUTISTA BAKER M.D. Performed By: #### H EPATIC, MG, LIPASE, CMP, CBC #### [address] Automated blood monocyte cou ntOrdered By: Roseline Mejia on 02-13-2023 Monocytes (Bld) [#/Vol] 0.3 10*3/uL Normal 0.0-0.8 [facility] Comment on above: Performed By: #### H EPATIC, MG, LIPASE, CMP, CBC #### [address] Automated eosinophil %Ordere d By: Roseline Mejia on 02-13-2023 Eosinophils/100 WBC (Bld) 1.7 % Normal . [facility] Comment on above: Performed By: #### H EPATIC, MG, LIPASE, CMP, CBC #### [address] Automated eosinophil countOr dered By: Roseline Mejia on 02-13-2023 Eosinophils (Bld) [#/Vol] 0.1 10*3/uL Normal 0.0-0.45 [facility] Comment on above: Performed By: #### H EPATIC, MG, LIPASE, CMP, CBC #### [address] Automated monocyte %Ordered By: Roseline Mejia on 02-13-2023 Monocytes/100 WBC (Bld) 7.3 % Normal . [facility] Comment on above: Performed By: #### H EPATIC, MG, LIPASE, CMP, CBC #### [address] Automated neutrophil %Ordere d By: Roseline Mejia on 02-13-2023 Neutrophils/100 WBC (Bld) 49.0 % Normal . [facility] Comment on above: Performed By: #### H EPATIC, MG, LIPASE, CMP, CBC #### [address] Automated urine color determ inationOrdered By: Roseline Mejia on 02-13-2023 Color (U) Yellow Normal Yellow [facility] Comment on above: Order Comment: Name Collection Type:: Clean-Voided Midstream Performed By: #### A DDONUAPLUS, UHCG, CUU #### [address] Basic Metabolic Panelon 01-17 Creatinine Clr Calc Pharmacy 119.02 Normal [facility] Comment on above: Performed By: #### H EPATIC, MG, LIPASE, CMP, CBC #### [address] GFR/1.73 sq M.predicted MDRD (S/P/Bld) [Vol rate/Area] mL/min/{1.73_m2} Normal [facility] Comment on above: Performed By: #### H EPATIC, MG, LIPASE, CMP, CBC #### [address] Bilirubin Test strip Ql (U)O rdered By: Roseline Mejia on 02-13-2023 Bilirubin Ql (U) Negative Negative [facility] Bilirubin.direct [Mass/volum e] in Serum or PlasmaOrdered By: Roseline Mejia on 02-13-2023 Bilirubin.direct [Mass/Vol] 0.10 mg/dL 0.03-0.18 [facility] Bilirubin.total [Mass/volume ] in Serum or PlasmaOrdered By: Roseline Mejia on 02-13-2023 Bilirubin [Mass/Vol] 0.5 mg/dL Normal 0.3-1.0 [facility] Comment on above: Performed By: #### H EPATIC, MG, LIPASE, CMP, CBC #### [address] abdomen pelvis w conon CT abdomen pelvis w con [facility] [place] [address] [place] [address] CT Scan Report Signed Patient: Abbey Garcia MR#: [id number] : 1990 Acct:[id number] Age/Sex: 32 / F ADM Date: 02/13/23 Loc: ER Room: Type: [facility] ER Attending Dr: Copies to: DO [...] Jason Palomo M.D.02/13/2023 3:42 PM Dictation Location: [place] [address] Transcribed By: [facility] 02/13/231541 Dictated By: Jason Palomo DO 02/13/23 153 Signed By: 02/13/23 154 Normal [facility] Calcium [Mass/volume] in Ser um or PlasmaOrdered By: Roseline Mejia on 02-13-2023 Calcium [Mass/Vol] 8.8 mg/dL Normal 8.6-10.3 [facility] Comment on above: Performed By: #### H EPATIC, MG, LIPASE, CMP, CBC #### [facility] [address] [place] [address] Carbon dioxide, total [Moles /volume] in Serum or PlasmaOrdered By: Roseline Mejia on 02-13-2023 CO2 [Moles/Vol] 21.2 mmol/L Normal 21.0-31.0 [facility] Comment on above: Performed By: #### H EPATIC, MG, LIPASE, CMP, CBC #### [facility] [address] [place] [address] Chloride [Moles/volume] in S elder or PlasmaOrdered By: Roseline Mejia on 02-13-2023 Chloride [Moles/Vol] 109 mmol/L High 98-107 [facility] Comment on above: Performed By: #### H EPATIC, MG, LIPASE, CMP, CBC #### [facility] [address] [place] [address] Complete Blood Count Auto Di ffon 02-13-2023 Mean Corpuscular HGB Conc 34.9 g/dL Normal 32.0-35.0 [facility] Comment on above: Performed By: #### H EPATIC, MG, LIPASE, CMP, CBC #### [facility] [address] [place] [address] [place] Monocytes/100 WBC (Bld) 17.39 % Normal 0.00-20.00 [facility] Comment on above: Performed By: #### H EPATIC, MG, LIPASE, CMP, CBC #### [facility] [address] NRBC% 0.2 /100{WBC} Normal 0-0.5 [facility] Comment on above: Performed By: #### H EPATIC, MG, LIPASE, CMP, CBC #### [address] Creatinine [Mass/volume] in Serum or PlasmaOrdered By: Roseline Mejia on 02-13-2023 Creatinine [Mass/Vol] 0.73 mg/dL Normal 0.60-1.20 [facility] Comment on above: Performed By: #### H EPATIC, MG, LIPASE, CMP, CBC #### [address] Erythrocyte distribution wid th [Ratio] by Automated countOrdered By: Roseline Mejia on 02-13-2023 Erythrocyte distribution width (RBC) [Ratio] 13.0 % Normal 11.9-15.3 [facility] Comment on above: Performed By: #### H EPATIC, MG, LIPASE, CMP, CBC #### [address] Erythrocytes [#/volume] in B lood by Automated countOrdered By: Roseline Mejia on 02-13-2023 RBC (Bld) [#/Vol] 4.07 10*6/uL Normal 3.60-5.00 [facility] Comment on above: Performed By: #### H EPATIC, MG, LIPASE, CMP, CBC #### [address] Glucose [Mass/volume] in Ser um or PlasmaOrdered By: Roseline Mejia on 02-13-2023 Glucose [Mass/Vol] 85 mg/dL Normal 70-100 [facility] Comment on above: ADA recommended refe rence rangeRandom Glucose Reference Range is dependent on time and content of last meal. Glucose of more than 200 mg/dL in a nonstressed, ambulatory subject supports the diagnosis of Diabetes Mellitus. Result Comment: [place] Glucose Reference Range is dependent on time and content of last meal. Glucose of more than 200 mg/dL in a nonstressed, ambulatory subject supports the diagnosis of Diabetes Mellitus. ADA recommended reference range Performed By: #### H EPATIC, MG, LIPASE, CMP, CBC #### [address] HCG ( test) IA.rapi d Ql (U)Ordered By: Roseline Mejia on 02-13-2023 HCG ( test) Ql (U) Negative [facility] HCG,Urineon 02-13-2023 Beta HCG ( test) Ql (U) Negative Normal [facility] Comment on above: Order Comment: Name Collection Type:: Clean-Voided Midstream Result Comment: PERF ORMED BY: [place] [address] PATHOLOGIST MULTINEEDLE SHIRRER BAUTISTA BAKER M.D. Performed By: #### A DDONUAJESSICA, CG, CUU #### [address] Hematocrit [Volume Fraction] of Blood by Automated countOrdered By: Roseline Mejia on 02-13-2023 Hematocrit (Bld) [Volume fraction] 36.3 % Normal 34.0-46.4 [facility] Comment on above: Performed By: #### H EPATIC, MG, LIPASE, CMP, CBC #### [address] Hemoglobin [Mass/volume] in BloodOrdered By: Roseline Mejia on 02-13-2023 Hemoglobin (Bld) [Mass/Vol] 12.7 g/dL Normal 11.8-15.4 [facility] Comment on above: Performed By: #### H EPATIC, MG, LIPASE, CMP, CBC #### [address] Hepatic Panelon 02-13-2023 Albumin [Mass/Vol] 4.0 g/dL Normal 3.5-5.7 [facility] Comment on above: Performed By: #### H EPATIC, MG, LIPASE, CMP, CBC #### [facility] [address] Bilirubin,Indirect 0.4 mg/dL Normal [facility] Comment on above: Performed By: #### H EPATIC, MG, LIPASE, CMP, CBC #### [facility] [address] Bilirubin.indirect [Mass/Vol] 0.10 mg/dL Normal 0.03-0.18 [facility] Comment on above: Performed By: #### H EPATIC, MG, LIPASE, CMP, CBC #### [address] Ketones Auto test strip (U) [Mass/Vol]Ordered By: Roseline Mejia on 02-13-2023 Ketones (U) [Mass/Vol] Trace Negative [facility] Leukocytes [#/volume] correc darvin for nucleated erythrocytes in Blood by Automated counOrdered By: Roseline Mejia on 02-13-2023 WBC corrected for nucl RBC Auto (Bld) [#/Vol] 4.2 10*3/uL 3.8-11.6 [facility] Leukocytes [#/volume] in Blo od by Automated countOrdered By: Roseline Mejia on 02-13-2023 WBC (Bld) [#/Vol] 4.2 10*3/uL Normal 3.8-11.6 [facility] Comment on above: Performed By: #### H EPATIC, MG, LIPASE, CMP, CBC #### [address] Lipase [Enzymatic activity/v olume] in Serum or PlasmaOrdered By: Roseline Mejia on 02-13-2023 Lipase [Catalytic activity/Vol] 42.0 U/L Normal 11.0-82.0 [facility] Comment on above: Result Comment: PERF ORMED BY: [place] [address] PATHOLOGIST MULTINEEDLE SHIRRER BAUTISTA BAKER M.D. Performed By: #### H EPATIC, MG, LIPASE, CMP, CBC #### [facility] [address] [place] [address] Lymphocytes [#/volume] in Bl ood by Automated countOrdered By: Roseline Mejia on 02-13-2023 Lymphocytes (Bld) [#/Vol] 1.7 10*3/uL Normal 1.00-4.8 [facility] Comment on above: Performed By: #### H EPATIC, MG, LIPASE, CMP, CBC #### [facility] [address] [place] [address] Lymphocytes/100 leukocytes i n Blood by Automated countOrdered By: Roseline Mejia on 02-13-2023 Lymphocytes/100 WBC (Bld) 40.8 % Normal . [facility] Comment on above: Performed By: #### H EPATIC, MG, LIPASE, CMP, CBC #### [facility] [address] [place] [address] MCH [Entitic mass] by Automa darvin countOrdered By: Roseline Mejia on 02-13-2023 MCH (RBC) [Entitic mass] 31.1 pg Normal 24.7-34.3 [facility] Comment on above: Performed By: #### H EPATIC, MG, LIPASE, CMP, CBC #### [facility] [address] [place] [address] MCHC Auto (RBC) [Mass/Vol]Or dered By: Roseline Mejia on 02-13-2023 MCHC (RBC) [Mass/Vol] 34.9 g/dL 32.0-35.0 [facility] MCV [Entitic volume] by Auto mated countOrdered By: Roseline Mejia on 02-13-2023 MCV (RBC) [Entitic vol] 89.2 fL Normal 80-100 [facility] Comment on above: Performed By: #### H EPATIC, MG, LIPASE, CMP, CBC #### [facility] [address] [place] [address] Monocyte distribution width [Entitic volume] in Blood by AutomatedOrdered By: Roseline Mejia on 02-13-2023 Monocyte distribution width Auto (Bld) [Entitic vol] 17.39 % 0.00-20.00 [facility] Neutrophils [#/volume] in Bl ood by Automated countOrdered By: Roseline Mejia on 02-13-2023 Neutrophils (Bld) [#/Vol] 2.0 10*3/uL Normal 1.8-7.7 [facility] Comment on above: Performed By: #### H EPATIC, MG, LIPASE, CMP, CBC #### [facility] [address] Nitrite Test strip Ql (U)Ord ered By: Roseline Mejia on 02-13-2023 Nitrite Ql (U) Negative Negative [facility] No Panel InformationOrdered By: Roseline Mejia on 02-13-2023 Estimated GFR (CKD-EPI) > 60.0 mL/Min [facility] Creatinine Clearance (Chem 119.02 [facility] Nucleated erythrocytes [Pres ence] in Blood by Automated countOrdered By: Roseline Mejia on 02-13-2023 Nucleated RBC Auto Ql (Bld) 0.2 /100{WBC} 0-0.5 [facility] Platelet mean volume [Entiti c volume] in Blood by Automated countOrdered By: Roseline Mejia on 02-13-2023 Platelet mean volume (Bld) [Entitic vol] 8.8 fL Normal 6.3-10.7 [facility] Comment on above: Performed By: #### H EPATIC, MG, LIPASE, CMP, CBC #### [facility] [address] Platelets [#/volume] in Bloo d by Automated countOrdered By: Roseline Mejia on 02-13-2023 Platelets (Bld) [#/Vol] 288 10*3/uL Normal 150-450 [facility] Comment on above: Performed By: #### H EPATIC, MG, LIPASE, CMP, CBC #### [facility] [address] [place] [address] [place] Potassium [Moles/volume] in Serum or PlasmaOrdered By: Roseline Mejia on 02-13-2023 Potassium [Moles/Vol] 3.7 mmol/L Normal 3.5-5.1 [facility] Comment on above: Performed By: #### H EPATIC, MG, LIPASE, CMP, CBC #### [address] Protein Auto test strip (U) [Mass/Vol]Ordered By: Roseline Mejia on 02-13-2023 Protein (U) [Mass/Vol] Negative Negative [facility] Protein [Mass/volume] in Ser um or PlasmaOrdered By: Roseline Mejia on 02-13-2023 Protein [Mass/Vol] 6.9 g/dL Normal 6.4-8.9 [facility] Comment on above: Performed By: #### H EPATIC, MG, LIPASE, CMP, CBC #### [address] Serum globulin measurement b y calculation (mass/volume)Ordered By: Roseline Mejia on 02-13-2023 Globulin (S) [Mass/Vol] 2.9 g/dL Normal [facility] Comment on above: Performed By: #### H EPATIC, MG, LIPASE, CMP, CBC #### [address] Serum or plasma albumin/glob ulin mass ratioOrdered By: Roseline Mejia on 02-13-2023 Albumin/Globulin [Mass ratio] 1.4 {ratio} [facility] Comment on above: Performed By: #### H EPATIC, MG, LIPASE, CMP, CBC #### [address] Serum or plasma anion gap de terminationOrdered By: Roseline Mejia on 02-13-2023 Anion gap [Moles/Vol] 10.5 mmol/L Normal 6.0-15.0 [facility] Comment on above: Performed By: #### H EPATIC, MG, LIPASE, CMP, CBC #### [address] Serum or plasma non-glucuron idated bilirubin measurement (mass/volume)Ordered By: Roseline Mejia on 02-13-2023 Bilirubin.indirect [Mass/Vol] 0.4 mg/dL [facility] Sodium [Moles/volume] in Ser um or PlasmaOrdered By: Roseline Mejia on 02-13-2023 Sodium [Moles/Vol] 137 mmol/L Normal 136-145 [facility] Comment on above: Performed By: #### H EPATIC, MG, LIPASE, CMP, CBC #### [facility] [address] Specific gravity Auto test s trip (U) [Rel density]Ordered By: Roseline Mejia on 02-13-2023 Specific gravity (U) [Rel density] 1.017 1.001-1.030 [facility] Urea nitrogen [Mass/volume] in Serum or PlasmaOrdered By: Roseline Mejia on 02-13-2023 Urea nitrogen [Mass/Vol] 10 mg/dL Normal 7-25 [facility] Comment on above: Performed By: #### H EPATIC, MG, LIPASE, CMP, CBC #### [address] Urinalysison 02-13-2023 Appearance (U) Clear Normal Clear [facility] Comment on above: Order Comment: Name Collection Type:: Clean-Voided Midstream Performed By: #### A DDONUAPLUS, UHCG, CUU #### [address] Bilirubin,Urine Negative Normal Negative [facility] Comment on above: Order Comment: Name Collection Type:: Clean-Voided Midstream Performed By: #### A DDONUAPLUS, UHCG, CUU #### [address] Glucose Ql (U) Normal Normal Normal [facility] Comment on above: Order Comment: Name Collection Type:: Clean-Voided Midstream Performed By: #### A DDONUAPLUS, UHCG, CUU #### [place] [address] [place] Ketones Ql (U) Trace High Negative [facility] Comment on above: Order Comment: Name Collection Type:: Clean-Voided Midstream Performed By: #### A DDONUAPLUS, UHCG, CUU #### [address] Leukocyte esterase Test strip Ql (U) Negative Normal Negative [facility] Comment on above: Order Comment: Name Collection Type:: Clean-Voided Midstream Performed By: #### A DDONUAPLUS, UHCG, CUU #### [place] [address] [place] Nitrite,Urine Negative Normal Negative [facility] Comment on above: Order Comment: Name Collection Type:: Clean-Voided Midstream Performed By: #### A DDONUAPLUS, UHCG, CUU #### [place] [address] [place] Occult Blood,Urine Negative Normal Negative [facility] Comment on above: Order Comment: Name Collection Type:: Clean-Voided Midstream Performed By: #### A DDONUAPLUS, UHCG, CUU #### [place] [address] [place] Protein,Urine Negative Normal Negative [facility] Comment on above: Order Comment: Name Collection Type:: Clean-Voided Midstream Performed By: #### A DDONUAPLUS, UHCG, CUU #### [place] [address] [place] Specificy Arjay,Urine 1.017 Normal 1.001-1.030 [facility] Comment on above: Order Comment: Name Collection Type:: Clean-Voided Midstream Performed By: #### A DDONUAPLUS, UHCG, CUU #### [place] [address] [place] Urobilinogen,Urine Normal Normal Normal [facility] Comment on above: Order Comment: Name Collection Type:: Clean-Voided Midstream Performed By: #### A DDONUAPLUS, UHCG, CUU #### [facility] [address] [place] [address] Urine clarity by refractomet ry automatedOrdered By: Roseline Mejia on 02-13-2023 Clarity Refractometry automated (U) Clear Clear [facility] Urine glucose measurement by automated test strip (mass/volume)Ordered By: Roseline Mejia on 02-13-2023 Glucose Auto test strip (U) [Mass/Vol] Normal mg/dL Normal [facility] Urine hemoglobin detection b y automated test stripOrdered By: Roseline Mejia on 02-13-2023 Hemoglobin Auto test strip Ql (U) Negative Negative [facility] Urine leukocyte esterase det ection by automated test stripOrdered By: Roseline Mejia on 02-13-2023 Leukocyte esterase Auto test strip Ql (U) Negative Negative [facility] Urine pH measurement by auto mated test stripOrdered By: Roseline Mejia on 02-13-2023 pH (U) 5.5 [pH] Normal 5.0-9.0 [facility] Comment on above: Order Comment: Name Collection Type:: Clean-Voided Midstream Performed By: #### A CORY, [facility] #### [facility] [address] [place] [address] Urobilinogen Auto test strip (U) [Mass/Vol]Ordered By: Roseline Mejia on 02-13-2023 Urobilinogen (U) [Mass/Vol] Normal mg/dL Normal [facility] CBC W Auto Differential pane l (Bld)on 02-12-2023 Basophils (Bld) [#/Vol] 0.02 x10*3/uL Normal 0.00-0.10 [facility] Comment on above: Performed By: #### 5 7021-8 #### OUMAR BRICEÑO ([id number]) [facility] (C) [address] [place] [address] Basophils/100 WBC (Bld) 0.5 % Normal 0.0-2.0 [facility] Comment on above: Performed By: #### 5 7021-8 #### OUMAR BRICEÑO (21453) [facility] ([facility] [address] [place] [address] Eosinophils (Bld) [#/Vol] 0.06 x10*3/uL Normal 0.00-0.70 [facility] Comment on above: Performed By: #### 5 7021-8 #### OUMAR BRICEÑO (70554) [facility] ([facility] [id number] [place] [address] Eosinophils/100 WBC (Bld) 1.4 % Normal 0.0-6.0 [facility] Comment on above: Performed By: #### 5 7021-8 #### OUMAR BRICEÑO (31340) [facility] ([facility] [address] [place] [address] Erythrocyte distribution width (RBC) [Ratio] 12.1 % Normal 11.5-14.5 [facility] Comment on above: Performed By: #### 5 7021-8 #### OUMAR BRICEÑO (85549) [facility] ([facility] [address] [place] [address] Hematocrit (Bld) [Volume fraction] 37.9 % Normal 36.0-46.0 [facility] Comment on above: Performed By: #### 5 7021-8 #### OUMAR BRICEÑO (77821) [facility] ([facility] [id number] [place] [address] Hemoglobin (Bld) [Mass/Vol] 12.8 g/dL Normal 12.0-16.0 [facility] Comment on above: Performed By: #### 5 7021-8 #### OUMAR BRICEÑO (72182) [facility] ([facility] [address] [place] [address] Immature granulocytes (Bld) [#/Vol] 0.01 x10*3/uL Normal 0.00-0.70 [facility] Comment on above: Performed By: #### 5 7021-8 #### OUMAR BRICEÑO ([id number]) [facility] ([facility] [address] [place] [address] Immature granulocytes/100 WBC (Bld) 0.2 % Normal 0.0-0.9 [facility] Comment on above: Result Comment: Janny ture Granulocyte Count (IG) includes promyelocytes, myelocytes and metamyelocytes but does not include bands. Percent differential counts (%) should be interpreted in the context of the absolute cell counts (cells/UL). Performed By: #### 5 7021-8 #### OUMAR BRICEÑO (57627) [facility] ([facility] [address] [place] [address] Lymphocytes (Bld) [#/Vol] 1.63 x10*3/uL Normal 1.20-4.80 [facility] Comment on above: Performed By: #### 5 7021-8 #### OUMAR BRICEÑO (94030) [facility] ([facility] [address] [place] [address] Lymphocytes/100 WBC (Bld) 38.9 % Normal 13.0-44.0 [facility] Comment on above: Performed By: #### 5 7021-8 #### OUMAR BRICEÑO (06759) [facility] ([facility] [address] [place] [address] MCH (RBC) [Entitic mass] 30.5 pg Normal 26.0-34.0 [facility] Comment on above: Performed By: #### 5 7021-8 #### OUMAR BRICEÑO ([id number]) [facility] ([facility] [address] [place] [address] MCHC (RBC) [Mass/Vol] 33.8 g/dL Normal 32.0-36.0 [facility] Comment on above: Performed By: #### 5 7021-8 #### OUMAR BRICEÑO ([id number]) [facility] ([facility] [address] [place] [address] MCV (RBC) [Entitic vol] 91 fL Normal 80-100 [facility] Comment on above: Performed By: #### 5 7021-8 #### OUMAR BRICEÑO (08023) [facility] ([facility] [address] [place] [address] Monocytes (Bld) [#/Vol] 0.26 x10*3/uL Normal 0.10-1.00 [facility] Comment on above: Performed By: #### 5 7021-8 #### OUMAR BRICEÑO (86324) [facility] ([facility] [address] [place] [address] Monocytes/100 WBC (Bld) 6.2 % Normal 2.0-10.0 [facility] Comment on above: Performed By: #### 5 7021-8 #### OUMAR BRICEÑO (53070) [facility] ([facility] [address] [place] [address] Neutrophils (Bld) [#/Vol] 2.21 x10*3/uL Normal 1.20-7.70 [facility] Comment on above: Result Comment: Perc ent differential counts (%) should be interpreted in the context of the absolute cell counts (cells/uL). Performed By: #### 5 7021-8 #### OUMAR BRICEÑO (87345) [facility] ([facility] [address] [place] [address] Neutrophils/100 WBC (Bld) 52.8 % Normal 40.0-80.0 [facility] Comment on above: Performed By: #### 5 7021-8 #### OUMAR BRICEÑO (56388) [facility] ([facility] [address] [place] [address] Nucleated RBC/100 WBC (Bld) [Ratio] 0.0 /100 WBCs Normal 0.0-0.0 [facility] Comment on above: Performed By: #### 5 7021-8 #### OUMAR BRICEÑO (25684) [facility] ([facility] [address] [place] [address] Platelets (Bld) [#/Vol] 291 x10*3/uL Normal 150-450 [facility] Comment on above: Performed By: #### 5 7021-8 #### OUMAR BRICEÑO (46195) [facility] ([facility] [address] [place] [address] RBC (Bld) [#/Vol] 4.19 x10*6/uL Normal 4.00-5.20 [facility] Comment on above: Performed By: #### 5 7021-8 #### OUMAR BRICEÑO (78929) [facility] ([facility] [id number] [place] [address] WBC (Bld) [#/Vol] 4.2 x10*3/uL Low 4.4-11.3 [facility] Comment on above: Performed By: #### 5 7021-8 #### OUMAR BRICEÑO (37478) [facility] ([facility] [id number] [place] [address] Comprehensive metabolic 2000 panelon 02-12-2023 Albumin BCP dye [Mass/Vol] 4.2 g/dL Normal 3.4-5.0 [facility] Comment on above: Performed By: #### 2 4323-8 #### OUMAR BRICEÑO (58656) [facility] ([facility] [id number] [place] [address] ALP [Catalytic activity/Vol] 55 U/L Normal 33-110 [facility] Comment on above: Performed By: #### 2 4323-8 #### OUMAR BRICEÑO (44714) [facility] ([facility] [address] [place] [address] ALT With P-5'-P [Catalytic activity/Vol] 13 U/L Normal 7-45 [facility] Comment on above: Result Comment: Umm ents treated with Sulfasalazine may generate falsely decreased results for ALT. Performed By: #### 2 4323-8 #### OUMAR BRICEÑO (25973) [facility] ([facility] [address] [place] [address] Anion gap [Moles/Vol] 13 mmol/L Normal 10-20 [facility] Comment on above: Performed By: #### 2 4323-8 #### OUMAR BRICEÑO (05663) [facility] ([facility] [address] [place] [address] AST With P-5'-P [Catalytic activity/Vol] 21 U/L Normal 9-39 [facility] Comment on above: Performed By: #### 2 4323-8 #### OUMAR BRICEÑO (46433) [facility] ([facility] [address] [place] [address] Bilirubin [Mass/Vol] 0.5 mg/dL Normal 0.0-1.2 [facility] Comment on above: Performed By: #### 2 4323-8 #### OUMAR BRICEÑO (65411) [facility] ([facility] [address] [place] [address] Calcium [Mass/Vol] 8.9 mg/dL Normal 8.6-10.3 [facility] Comment on above: Performed By: #### 2 4323-8 #### OUMAR BRICEÑO (20751) [facility] ([facility] [address] [place] [address] Chloride [Moles/Vol] 107 mmol/L Normal 98-107 [facility] Comment on above: Performed By: #### 2 4323-8 #### OUMAR BRICEÑO (19999) [facility] ([facility] [address] [place] [address] CO2 [Moles/Vol] 23 mmol/L Normal 21-32 [facility] Comment on above: Performed By: #### 2 4323-8 #### OUMAR BRICEÑO (89706) [facility] ([facility] [address] [place] [address] Creatinine [Mass/Vol] 0.73 mg/dL Normal 0.50-1.05 [facility] Comment on above: Performed By: #### 2 4323-8 #### OUMAR BRICEÑO (76366) [facility] ([facility] [address] [place] [address] GFR/1.73 sq M.predicted MDRD (S/P/Bld) [Vol rate/Area] mL/min/{1.73_m2} Normal >60 [facility] Comment on above: Result Comment: Calc ulations of estimated GFR are performed using the 2020 CKD-EPI Study Refit equation without the race variable for the IDMS-Traceable creatinine methods. https://jasn.asnjournals.org/content/early//ASN.23636532 88 Performed By: #### 2 4323-8 #### OUMAR BRICEÑO (88839) [facility] ([facility] [address] [place] [address] Glucose [Mass/Vol] 84 mg/dL Normal 74-99 [facility] Comment on above: Performed By: #### 2 4323-8 #### OUMAR BRICEÑO (99387) [facility] ([facility] [address] [place] [address] Potassium [Moles/Vol] 3.6 mmol/L Normal 3.5-5.3 [facility] Comment on above: Performed By: #### 2 4323-8 #### OUMAR BRICEÑO (06903) [facility] ([facility] [address] [place] [address] Protein [Mass/Vol] 7.0 g/dL Normal 6.4-8.2 [facility] Comment on above: Performed By: #### 2 4323-8 #### OUMAR BRICEÑO ([id number]) [facility] ([facility] [address] [place] [address] Sodium [Moles/Vol] 139 mmol/L Normal 136-145 [facility] Comment on above: Performed By: #### 2 4323-8 #### OUMAR BRICEÑO ([id number]) [facility] ([facility] [address] [place] [address] Urea nitrogen [Mass/Vol] 9 mg/dL Normal 6-23 [facility] Comment on above: Performed By: #### 2 4323-8 #### OUMAR BRICEÑO (70300) [facility] ([facility] [address] [place] [address] Lactateon 02-12-2023 Lactate [Moles/Vol] 0.6 mmol/L Normal 0.4-2.0 [facility] Comment on above: Order Comment: Venip uncture immediately after or during the administration of Metamizole may lead to falsely low results. Testing should be performed immediately prior to Metamizole dosing. Performed By: #### 2 524-7 #### OUMAR BRICEOÑ (37594) [facility] ([facility] [id number] [place] [address] Triacylglycerol lipaseon Lipase [Catalytic activity/Vol] 43 U/L Normal 9-82 [facility] Comment on above: Order Comment: Venip uncture immediately after or during the administration of Metamizole may lead to falsely low results. Testing should be performed immediately prior to Metamizole dosing. Performed By: #### 3 040-3 #### OUMAR BRICEÑO (65164) [facility] ([facility] [id number] [place] [address] Urinalysis complete panel (U )on 02-12-2023 Appearance (U) Clear Normal Clear [facility] Comment on above: Performed By: #### 2 4356-8 #### OUMAR BRICEÑO (78158) [facility] ([facility] [address] [place] [address] Bilirubin (U) [Mass/Vol] Negative Normal NEGATIVE [facility] Comment on above: Performed By: #### 2 4356-8 #### OUMAR BRICEÑO (37763) [facility] ([facility] [address] [place] [address] Color (U) Yellow Normal Straw, Yellow [facility] Comment on above: Performed By: #### 2 4356-8 #### OUMAR BRICEÑO (97606) [facility] ([facility] [address] [place] [address] Glucose Auto test strip (U) [Mass/Vol] Negative Normal NEGATIVE [facility] Comment on above: Performed By: #### 2 4356-8 #### OUMAR BRICEÑO (22794) [facility] ([facility] [address] [place] [address] Ketones (U) [Mass/Vol] Negative Normal NEGATIVE [facility] Comment on above: Performed By: #### 2 4356-8 #### OUMAR BRICEÑO (40481) [facility] ([facility] [address] [place] [address] Leukocyte esterase Auto test strip Ql (U) Negative Normal NEGATIVE [facility] Comment on above: Performed By: #### 2 4356-8 #### OUMAR BRICEÑO (12332) [facility] ([facility] [address] [place] [address] Nitrite Auto test strip Ql (U) Negative Normal NEGATIVE [facility] Comment on above: Performed By: #### 2 4356-8 #### OUMAR BRICEÑO (16867) [facility] ([facility] [address] [place] [address] pH (U) 6.0 [pH] Normal 5.0, 5.5, 6.0, 6.5, 7.0, 7.5, 8.0 [facility] Comment on above: Performed By: #### 2 4356-8 #### OUMAR BRICEÑO (49868) [facility] ([facility] [address] [place] [address] Protein (U) [Mass/Vol] Negative Normal NEGATIVE [facility] Comment on above: Performed By: #### 2 4356-8 #### OUMAR BRICEÑO (97211) [facility] ([facility] [address] [place] [address] RBC (U) [#/Vol] Negative Normal NEGATIVE [facility] Comment on above: Performed By: #### 2 4356-8 #### OUMAR BRICEÑO (91529) [facility] ([facility] [address] [place] [address] Specific gravity (U) [Rel density] 1.021 Normal 1.005-1.035 [facility] Comment on above: Performed By: #### 2 4356-8 #### OUMAR BRICEÑO (47188) [facility] ([facility] [address] [place] [address] Urobilinogen (U) [Mass/Vol] mg/dL Normal <2.0 [facility] Comment on above: Performed By: #### 2 4356-8 #### OUMAR BRICEÑO (75185) [facility] ([facility] [id number] [place] [address] CNPNon 02-11-2023 CNPN Normal [facility] HISTORY PHYSICALon HISTORY PHYSICAL HNO ID: [id number] Author: Vic Ramos MD Service: Pain Management [...] DATE: February 10, 2023 TIME: 2:00 PM [facility] HISTORY PHYSICAL HNO ID: [id number] Author: Anam Carter APRN.FIRE CONTROL ASSISTANT Service: General Internal Medicine Author Type: Nurse Practitioner Type: HANDP Filed: 02/10/2023 2:04 PM Note Text: Abbey Garcia returns to [facility] for the treatment [...] syndrome Plan: Block celiac plexus Anam Carter APRN.[facility] OPERATIVE NOon 02-10-2023 OPERATIVE NO HNO ID: [id number] Author: Vic Ramos MD Service: Pain Management Author Type: Anesthesiologist Type: Operative Report Filed: 02/10/2023 2:41 PM Note Text: [facility] Pre-Procedure Note Patient Name: Abbey Garcia SUBJECTIVE: Abbey Garcia is a 32 year old female who presents to [facility] [facility] This is her [facility]. Patient denies any contraindications to the procedure including . 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 OBJECTIVE: BP [...] procedure. Vic Ramos MD February 10, 2023 [facility] Post-Procedure Note [...] 10, 2023 day of surgery Normal [facility] Family Medicine Office/Clini c Noteon 02-03-2023 Family Medicine Office/Clinic Note Normal [facility] Comment on above: Result Comment: Elec tronically Signed By: Jaquan Paula\.rene\Date and Time Signed: 02/03/23 15:18 EST Zachary 01-15-2023 CNPN Normal [facility] VASC US MESENTERIC ARTERY DU PLEX COMPLETEon 01-14-2023 VASC US MESENTERIC ARTERY DUPLEX COMPLETE [place] [id number] Vascular Lab Report [facility] US MESENTERIC ARTERY DUPLEX COMPLETE Patient Name: ABBEY PHIPPS Reading Physician: [id number] Boggs MD, DORA Study Date: 01/14/2023 Ordering Provider: [id number] PHANIBAHMAN Sandra GÓMEZ MRN/PID: [id number] Fellow: Technologist: Anam Mc RVT Date of /Age: 2 1990 / 32 years Technologist 2: Gender: F Admission Status: Outpatient Location Performed: [facility] 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 History of gastric bypass [...] PSV 116 cm/s Splenic PSV 77 cm/s [id number] Boggs MD, DORA Final Normal [facility] CBC W Auto Differential pane l (Bld)on 01-13-2023 Basophils (Bld) [#/Vol] 0.04 x10*3/uL Normal 0.00-0.10 [facility] Comment on above: Performed By: #### 5 7021-8 #### MELISA Galvan ([id number]) [facility] (MW) [address] [place] [address] Basophils/100 WBC (Bld) 0.7 % Normal 0.0-2.0 [facility] Comment on above: Performed By: #### 5 7021-8 #### MELISA Galvan (25027) [facility] () [address] [place] [address] Eosinophils (Bld) [#/Vol] 0.13 x10*3/uL Normal 0.00-0.70 [facility] Comment on above: Performed By: #### 5 7021-8 #### MELISA Galvan ([id number]) [facility] () [address] [place] [address] Eosinophils/100 WBC (Bld) 2.2 % Normal 0.0-6.0 [facility] Comment on above: Performed By: #### 5 7021-8 #### MELISA Galvan (39712) [facility] () [address] [place] [address] Erythrocyte distribution width (RBC) [Ratio] 12.4 % Normal 11.5-14.5 [facility] Comment on above: Performed By: #### 5 7021-8 #### MELISA Galvan (59606) [facility] () [address] [place] [address] Hematocrit (Bld) [Volume fraction] 36.6 % Normal 36.0-46.0 [facility] Comment on above: Performed By: #### 5 7021-8 #### MELISA Galvan (22688) [facility] () [address] [place] [address] Hemoglobin (Bld) [Mass/Vol] 12.6 g/dL Normal 12.0-16.0 [facility] Comment on above: Performed By: #### 5 7021-8 #### MELISA Galvan (37276) [facility] () [address] [place] [address] Immature granulocytes (Bld) [#/Vol] 0.01 x10*3/uL Normal 0.00-0.70 [facility] Comment on above: Performed By: #### 5 7021-8 #### MELISA Galvan (26395) [facility] () [address] [place] [address] Immature granulocytes/100 WBC (Bld) 0.2 % Normal 0.0-0.9 [facility] Comment on above: Result Comment: Janny ture Granulocyte Count (IG) includes promyelocytes, myelocytes and metamyelocytes but does not include bands. Percent differential counts (%) should be interpreted in the context of the absolute cell counts (cells/UL). Performed By: #### 5 7021-8 #### MELISA Galvan ([id number]) [facility] () [address] [place] [address] Lymphocytes (Bld) [#/Vol] 2.26 x10*3/uL Normal 1.20-4.80 [facility] Comment on above: Performed By: #### 5 7021-8 #### MELISA Galvan (87832) [facility] () [address] [place] [address] Lymphocytes/100 WBC (Bld) 39.0 % Normal 13.0-44.0 [facility] Comment on above: Performed By: #### 5 7021-8 #### MELISA Galvan (49702) [facility] () [address] [place] [address] MCH (RBC) [Entitic mass] 30.7 pg Normal 26.0-34.0 [facility] Comment on above: Performed By: #### 5 7021-8 #### MELISA Galvan (27396) [facility] () [address] [place] [address] MCHC (RBC) [Mass/Vol] 34.4 g/dL Normal 32.0-36.0 [facility] Comment on above: Performed By: #### 5 7021-8 #### MELISA Galvan (59666) [facility] () [address] [place] [address] MCV (RBC) [Entitic vol] 89 fL Normal 80-100 [facility] Comment on above: Performed By: #### 5 7021-8 #### MELISA Galvan (74842) [facility] () [address] [place] [address] Monocytes (Bld) [#/Vol] 0.41 x10*3/uL Normal 0.10-1.00 [facility] Comment on above: Performed By: #### 5 7021-8 #### MELISA Galvan (60186) [facility] () [address] [place] [address] Monocytes/100 WBC (Bld) 7.1 % Normal 2.0-10.0 [facility] Comment on above: Performed By: #### 5 7021-8 #### MELISA Galvan (91742) [facility] () [address] [place] [address] Neutrophils (Bld) [#/Vol] 2.95 x10*3/uL Normal 1.20-7.70 [facility] Comment on above: Result Comment: Perc ent differential counts (%) should be interpreted in the context of the absolute cell counts (cells/uL). Performed By: #### 5 7021-8 #### MELISA Galvan (79805) [facility] () [address] [place] [address] Neutrophils/100 WBC (Bld) 50.8 % Normal 40.0-80.0 [facility] Comment on above: Performed By: #### 5 7021-8 #### MELISA Galvan (51147) [facility] () [address] [place] [address] Nucleated RBC/100 WBC (Bld) [Ratio] 0.0 /100 WBCs Normal 0.0-0.0 [facility] Comment on above: Performed By: #### 5 7021-8 #### MELISA Galvan (61916) [facility] () [address] [place] [address] Platelets (Bld) [#/Vol] 222 x10*3/uL Normal 150-450 [facility] Comment on above: Performed By: #### 5 7021-8 #### MELISA Galvan (02726) [facility] () [address] [place] [address] RBC (Bld) [#/Vol] 4.11 x10*6/uL Normal 4.00-5.20 [facility] Comment on above: Performed By: #### 5 7021-8 #### MELISA Galvan (10499) [facility] () [address] [place] [address] WBC (Bld) [#/Vol] 5.8 x10*3/uL Normal 4.4-11.3 [facility] Comment on above: Performed By: #### 5 7021-8 #### MELISA Galvan (80473) [facility] () [address] [place] [address] Comprehensive metabolic 2000 panelon 01-13-2023 Albumin [Mass/Vol] 4.2 g/dL Normal 3.5-5.0 [facility] Comment on above: Performed By: #### 2 4323-8 #### MELISA Galvan (68319) [facility] () [address] [place] [address] ALP (Bld) [Catalytic activity/Vol] 74 U/L Normal 35-125 [facility] Comment on above: Performed By: #### 2 4323-8 #### MELISA Galvan (76997) [facility] () [address] [place] [address] ALT [Catalytic activity/Vol] 15 U/L Normal 5-40 [facility] Comment on above: Performed By: #### 2 4323-8 #### MELISA Galvan (02121) [facility] () [address] [place] [address] Anion gap [Moles/Vol] 10 mmol/L Normal <=19 [facility] Comment on above: Performed By: #### 2 4323-8 #### MELISA Galvan (89004) [facility] () [address] [place] [address] AST [Catalytic activity/Vol] 26 U/L Normal 5-40 [facility] Comment on above: Performed By: #### 2 432-8 #### MELISA Galvan (03319) [facility] () [address] [place] [address] Bilirubin [Mass/Vol] 0.5 mg/dL Normal 0.1-1.2 [facility] Comment on above: Performed By: #### 2 4323-8 #### MELISA Galvan (45169) [facility] () [address] [place] [address] Calcium [Mass/Vol] 9.1 mg/dL Normal 8.5-10.4 [facility] Comment on above: Performed By: #### 2 4323-8 #### MELISA Galvan (27359) [facility] () [address] [place] [address] Chloride [Moles/Vol] 103 mmol/L Normal 97-107 [facility] Comment on above: Performed By: #### 2 4323-8 #### MELISA Galvan (11947) [facility] () [address] [place] [address] CO2 [Moles/Vol] 23 mmol/L Low 24-31 [facility] Comment on above: Performed By: #### 2 4323-8 #### MELISA Galvan (10240) [facility] () [address] [place] [address] Creatinine [Mass/Vol] 0.70 mg/dL Normal 0.40-1.60 [facility] Comment on above: Performed By: #### 2 4323-8 #### MELISA Galvan (65785) [facility] () [address] [place] [address] GFR/1.73 sq M.predicted MDRD (S/P/Bld) [Vol rate/Area] mL/min/{1.73_m2} Normal >60 [facility] Comment on above: Result Comment: Calc ulations of estimated GFR are performed using the 2020 CKD-EPI Study Refit equation without the race variable for the IDMS-Traceable creatinine methods. https://jasn.asnjournals.org/content//ASN.46501185 88 Performed By: #### 2 4323-8 #### MELISA Galvan (70795) [facility] () [address] [place] [address] Glucose [Mass/Vol] 89 mg/dL Normal 65-99 [facility] Comment on above: Performed By: #### 2 4323-8 #### MELISA Galvan (92135) [facility] () [address] [place] [address] Potassium [Moles/Vol] 3.5 mmol/L Normal 3.4-5.1 [facility] Comment on above: Performed By: #### 2 4323-8 #### MELISA Galvan (01768) [facility] () [address] [place] [address] Protein [Mass/Vol] 6.9 g/dL Normal 5.9-7.9 [facility] Comment on above: Performed By: #### 2 4323-8 #### MELISA Galvan (06243) [facility] () [address] [place] [address] Sodium [Moles/Vol] 136 mmol/L Normal 133-145 [facility] Comment on above: Performed By: #### 2 4323-8 #### MELISA Galvan (19303) [facility] () [address] [place] [address] Urea nitrogen [Mass/Vol] 13 mg/dL Normal 8-25 [facility] Comment on above: Performed By: #### 2 4323-8 #### MELISA Galvan (10307) [facility] () [address] [place] [address] HCG ( test) IA.rapi d Ql (U)on 01-13-2023 HCG ( test) Ql (U) Negative Normal NEGATIVE [facility] Comment on above: Performed By: #### 8 0384-1 #### MELISA Galvan (69129) [facility] () [address] [place] [address] Urinalysis complete panel (U )on 01-13-2023 Appearance (U) Clear Normal Clear [facility] Comment on above: Performed By: #### 2 4356-8 #### MELISA Galvan (91676) [facility] () [address] [place] [address] Bilirubin (U) [Mass/Vol] Negative Normal NEGATIVE [facility] Comment on above: Performed By: #### 2 4356-8 #### MELISA Galvan (46335) [facility] () [address] [place] [address] Color (U) Light-Yellow Normal Light-Yellow, Yellow, Dark-Yellow [facility] Comment on above: Performed By: #### 2 4356-8 #### MELISA Galvan (54171) [facility] () [address] [place] [address] Glucose Auto test strip (U) [Mass/Vol] Normal Normal Normal [facility] Comment on above: Performed By: #### 2 4356-8 #### MELISA Galvan (13679) [facility] () [address] [place] [address] Ketones (U) [Mass/Vol] Negative Normal NEGATIVE [facility] Comment on above: Performed By: #### 2 4356-8 #### MELISA Galvan (66215) [facility] () [address] [place] [address] Leukocyte esterase Auto test strip Ql (U) Negative Normal NEGATIVE [facility] Comment on above: Performed By: #### 2 4356-8 #### MELISA Galvan (87750) [facility] () [address] [place] [address] Nitrite Auto test strip Ql (U) Negative Normal NEGATIVE [facility] Comment on above: Performed By: #### 2 4356-8 #### MELISA Galvan (75685) [facility] () [address] [place] [address] pH (U) 7.0 [pH] Normal 5.0, 5.5, 6.0, 6.5, 7.0, 7.5, 8.0 [facility] Comment on above: Performed By: #### 2 4356-8 #### MELISA Galvan (30495) [facility] () [address] [place] [address] Protein (U) [Mass/Vol] Negative Normal NEGATIVE, 10 (TRACE), 20 (TRACE) [facility] Comment on above: Performed By: #### 2 4356-8 #### MELISA Galvan (53713) [facility] () [address] [place] [address] RBC (U) [#/Vol] Negative Normal NEGATIVE [facility] Comment on above: Performed By: #### 2 4356-8 #### MELISA Galvan (02674) [facility] () [address] [place] [address] Specific gravity (U) [Rel density] 1.010 Normal 1.005-1.035 [facility] Comment on above: Performed By: #### 2 4356-8 #### MELISA Galvan (94194) [facility] () [address] [place] [address] Urobilinogen (U) [Mass/Vol] Normal Normal Normal [facility] Comment on above: Performed By: #### 2 4356-8 #### MELISA ALEXANDRO Galvan (63980) [facility] (MW) [address] [place] [address] CNPNon 01-11-2023 [facility]N [facility] 01-06-2023 CNPN Normal [facility] Auto Diffon 12-31-2022 Basophils/100 WBC (Bld) 0.6 % Normal 0.0-2.0 [facility] Comment on above: Order Comment: Order Added by Discern Expert. Performed By: #### 2 507814, 9865258, 51802436, 1641980, 7531253, 08027749, 3453743 ####[facility] [address] [place] [address] Basophils/Leukocyte s Auto (Bld) [Pure # fraction] 0.0 E9/L Normal 0.0-0.2 [facility] Comment on above: Order Comment: Order Added by Discern Expert. Performed By: #### 2 241025, 0250414, 76950041, 4012891, 4194225, 22807361, 7653362 ####[facility] [address] [place] [address] Eosinophils/100 WBC (Bld) 0.4 % Normal 0.0-8.0 [facility] Comment on above: Order Comment: Order Added by Discern Expert. Performed By: #### 2 179613, 5867368, 30931561, 7106546, 7287537, 79296338, 8567519 ####[facility] [address] [place] [address] Eosinophils/Leukocy stevan Auto (Bld) [Pure # fraction] 0.0 E9/L Normal 0.0-0.5 [facility] Comment on above: Order Comment: Order Added by Discern Expert. Performed By: #### 2 672569, 0986918, 54831304, 5100680, 0911013, 67056709, 2516598 ####[place] [address] [place] [address] Lymphocytes/100 WBC (Bld) 42.3 % Normal 14.0-50.0 [facility] Comment on above: Order Comment: Order Added by Discern Expert. Performed By: #### 2 229729, 6039090, 53264209, 0424233, 7858574, 37335726, 0175060 ####[place] [address] [place] [address] Lymphocytes/Leukocy stevan Auto (Bld) [Pure # fraction] 1.9 E9/L Normal 1.0-4.0 [facility] Comment on above: Order Comment: Order Added by Discern Expert. Performed By: #### 2 809567, 7818472, 52712537, 3978068, 2649574, 45413064, 7844074 ####[address] [address] Monocytes/100 WBC (Bld) 7.9 % Normal 4.0-14.0 [facility] Comment on above: Order Comment: Order Added by Discern Expert. Performed By: #### 2 545363, 9144041, 13382809, 1821168, 6064072, 28570772, 2572111 ####[place] [address] [place] [address] Monocytes/Leukocyte s Auto (Bld) [Pure # fraction] 0.4 E9/L Normal 0.2-1.0 [facility] Comment on above: Order Comment: Order Added by Discern Expert. Performed By: #### 2 705811, 1906075, 41307602, 9532007, 5196788, 97678663, 8283996 ####[place] [address] [place] [address] Neutrophils/100 WBC (Bld) 48.8 % Normal 36.0-75.0 [facility] Comment on above: Order Comment: Order Added by Discern Expert. Performed By: #### 2 659165, 5807089, 60725400, 7603346, 7225711, 90846973, 5479323 ####[facility] [address] [place] [address] Neutrophils/Leukocy stevan Auto (Bld) [Pure # fraction] 2.2 E9/L Normal 2.0-7.5 [facility] Comment on above: Order Comment: Order Added by Discern Expert. Performed By: #### 2 983299, 4920102, 96952227, 3409923, 7215203, 18486867, 0457438 ####[facility] [address] [place] [address] B hCG Qualon 12-31-2022 Beta HCG ( test) Ql Negative Normal [facility] Comment on above: Performed By: #### 2 734934, 9642356, 04361102, 2727015, 3277461, 44995861, 4481387 ####[facility] [address] [place] [address] BMPon 12-31-2022 Creatinine [Mass/Vol] 0.8 mg/dL Normal 0.5-1.3 [facility] Comment on above: Performed By: #### 2 923532, 3369322, 42185902, 9172170, 1822900, 82343742, 0500217 ####[facility] [address] [place] [address] Urea nitrogen [Mass/Vol] 16 mg/dL Normal 5-21 [facility] Comment on above: Performed By: #### 2 403613, 2110978, 69466855, 5752331, 1511236, 65971056, 7751095 ####[facility] [address] [place] [address] Urea nitrogen/Creatinine [Mass ratio] 20 No Units Normal 10-20 [facility] Comment on above: Performed By: #### 2 308670, 1705190, 41547803, 9470413, 5543611, 00137382, 7108017 ####[facility] [address] [place] [address] Anion gap [Moles/Vol] 10 mmol/L Normal 6-16 [facility] Comment on above: Performed By: #### 2 531914, 2693722, 83427667, 9251524, 1835874, 17100325, 0005375 ####[facility] [address] [place] [address] Calcium [Mass/Vol] 8.6 mg/dL Low 8.9-11.1 [facility] Comment on above: Performed By: #### 2 507405, 3542679, 15836065, 6833589, 6484103, 85911356, 1080318 ####[facility] [address] [place] [address] Chloride [Moles/Vol] 110 mmol/L Normal 101-111 [facility] Comment on above: Performed By: #### 2 897658, 3621596, 68272230, 2214143, 0693198, 61191521, 8602960 ####[facility] [address] [place] [address] CO2 [Moles/Vol] 20 mmol/L Low 21-31 [facility] Comment on above: Performed By: #### 2 927176, 7709476, 60626578, 9182081, 3547631, 00141770, 9128973 ####[facility] [address] [place] [address] Glucose [Mass/Vol] 87 mg/dL Normal 55-199 [facility] Comment on above: Result Comment: If t his glucose result represents a fasting glucose, interpretation should refer to the following reference range: 55-99 mg/dL Performed By: #### 2 175030, 2469968, 17232038, 2192352, 4244484, 95171240, 7790815 ####[facility] [address] [place] [address] Potassium [Moles/Vol] 3.2 mmol/L Low 3.5-5.3 [facility] Comment on above: Performed By: #### 2 724073, 0359980, 72867425, 3201958, 4624762, 08927610, 0785047 ####[facility] [address] [place] [address] Sodium [Moles/Vol] 137 mmol/L Normal 135-145 [facility] Comment on above: Performed By: #### 2 413839, 4670959, 82576215, 4054385, 0002621, 64113119, 6023523 ####[address] [address] CBC w/ Auto Diffon 3 Erythrocyte distribution width (RBC) [Ratio] 13.9 % Normal 10.9-14.2 [facility] Comment on above: Performed By: #### 2 000408, 2206633, 54973894, 7292300, 8360443, 30310819, 3038592 ####[address] [address] Hematocrit (Bld) [Volume fraction] 35.5 % Normal 34.0-46.0 [facility] Comment on above: Performed By: #### 2 322265, 6010197, 42570174, 4449033, 4613962, 41096406, 8866528 ####[address] [address] Hemoglobin (Bld) [Mass/Vol] 12.2 g/dL Normal 12.0-16.0 [facility] Comment on above: Performed By: #### 2 488624, 1587867, 51998113, 5339354, 7162003, 79363599, 7947761 ####[address] [address] MCH (RBC) [Entitic mass] 30.8 pg Normal 27.0-34.0 [facility] Comment on above: Performed By: #### 2 622548, 2282451, 43858427, 9624163, 1676251, 70215969, 2470869 ####[address] [address] MCHC (RBC) [Mass/Vol] 34.4 g/dL Normal 31.4-36.0 [facility] Comment on above: Performed By: #### 2 904029, 9153446, 94987227, 0003213, 4986202, 87299598, 8826945 ####[address] [address] MCV (RBC) [Entitic vol] 89.5 fL Normal 80.0-100.0 [facility] Comment on above: Performed By: #### 2 979053, 1196980, 31893973, 2558628, 6289698, 71687044, 5131408 ####[address] [address] Platelet mean volume (Bld) [Entitic vol] 9.5 fL Normal 6.4-10.8 [facility] Comment on above: Performed By: #### 2 799937, 8261188, 34523631, 3725006, 0121728, 00301123, 3510894 ####[place] [address] Platelets (Bld) [#/Vol] 177.0 E9/L Normal 150.0-500.0 [facility] Comment on above: Performed By: #### 2 480992, 9775006, 00137415, 7771297, 7402389, 77521241, 6569973 ####[address] [address] RBC (Bld) [#/Vol] 4.0 E12/L Low 4.3-5.9 [facility] Comment on above: Performed By: #### 2 449992, 9147178, 88567123, 3366804, 3277849, 70053934, 1538970 ####[address] [address] WBC corrected for nucl RBC Auto (Bld) [#/Vol] 4.4 E9/L Normal 4.0-11.0 [facility] Comment on above: Performed By: #### 2 269322, 7889998, 73179770, 2091545, 2857038, 42207925, 8994867 ####[facility] [address] [place] [address] CHEMISTRYOrdered By: SYSTEM SYSTEM on 12-31-2022 Albumin [...] rate/Area] 100 mL/min/1.73 m2 Normal >=59mL/min/1.73 m2 [facility] Chem S Comment on above: Interpretive Data: C hronic kidney disease could be indicated at eGFR's of less than 60 mL/min/1.73m2. Kidney failure is indicated at less than 15 mL/min/1.73m2. Globulin (S) [Mass/Vol] 2.9 g/dL Normal 1.4 - 4.0 gm/dL [facility] Remisol Glucose [Mass/Vol] 87 mg/dL Normal 55 - 199 mg/dL [facility] Remisol Comment on above: Interpretive Data: I f this glucose result represents a fasting glucose, interpretation should refer to the following reference range: 55-99 mg/dL Lipase [Catalytic activity/Vol] 49 U/L Normal 13 - 58 unit/L [facility] Remisol Potassium [Moles/Vol] 3.2 mmol/L Low 3.5 - 5.3 mmol/L [facility] Remisol Protein [Mass/Vol] 6.8 g/dL Normal 6.0 - 7.8 gm/dL [facility] Remisol Sodium [Moles/Vol] 137 mmol/L Normal 135 - 145 mmol/L [facility] Remisol Urea nitrogen [Mass/Vol] 16 mg/dL Normal 5 - 21 mg/dL [facility] Remisol Urea nitrogen/Creatinine [Mass ratio] 20 mg/mg Normal 10 - 20 [facility] Remisol Consent for Treatmenton 12-16 Consent for Treatment [id number] Normal [facility] Discharge Instructionson Discharge Instructions [id number] Normal [facility] ED Clinical Summaryon 2022 ED Clinical Summary Normal [facility] ED Note-Physicianon 01-01-20 ED Note-Physician Normal [facility] Comment on above: Result Comment: Elec tronically Signed By: Lonnie Rios PA-C\.br\Date and Time Signed: 12/31/22 19:15 EST\.br\Electronically Co-Signed By: Mateusz Garcia DO\.br\Date and Time Co-Signed: 12/31/22 19:25 EST ED Patient Education Noteon 12-31-2022 ED Patient Education Note Normal [facility] ED Patient Summaryon 023 ED Patient Summary Normal [facility] HEMATOLOGYOrdered By: SYSTEM SYSTEM on 12-31-2022 [...] 9.5 fL Normal 6.4 - 10.8 fL [facility] HemeAutoSS Platelets (Bld) [#/Vol] 177.0 E9/L Normal 150.0 - 500.0 E9/L [facility] HemeAutoSS RBC (Bld) [#/Vol] 4.0 E12/L Low 4.3 - 5.9 E12/L [facility] HemeAutoSS WBC corrected for nucl RBC Auto (Bld) [#/Vol] 4.4 E9/L Normal 4.0 - 11.0 E9/L [facility] HemeAutoSS Hep Func Panelon 12-31-2022 Albumin [Mass/Vol] 3.9 g/dL Normal 3.3-5.0 [facility] Comment on above: Performed By: #### 2 233430, 5764342, 73661766, 6989599, 7683418, 87641744, 8792280 ####[facility] [address] [place] [address] Albumin/Globulin (S) [Mass conc ratio] 1.3 Normal 1.1-2.2 [facility] Comment on above: Performed By: #### 2 343984, 0136615, 54072634, 6524178, 2670132, 53528413, 2625490 ####[facility] [address] [place] [address] ALP [Catalytic activity/Vol] 51 Int._Unit/L Normal 21-98 [facility] Comment on above: Performed By: #### 2 744986, 3061221, 32943778, 8692163, 3495032, 35882768, 7256323 ####[facility] [address] [place] [address] ALT No additional P-5'-P [Catalytic activity/Vol] 21 Int._Unit/L Normal 6-46 [facility] Comment on above: Performed By: #### 2 348098, 6112799, 28325753, 7782772, 6453345, 19039848, 1281611 ####[facility] [address] [place] [address] AST [Catalytic activity/Vol] 32 Int._Unit/L Normal 5-43 [facility] Comment on above: Performed By: #### 2 154989, 3071689, 13216767, 9783744, 1708733, 12019923, 8934836 ####[facility] [address] [place] [address] Bilirubin [Mass/Vol] 0.5 mg/dL Normal 0.0-1.1 [facility] Comment on above: Performed By: #### 2 260165, 0390376, 58661683, 9720941, 8257617, 76634733, 8910075 ####[facility] [address] [place] [address] Bilirubin.direct [Mass/Vol] 0.1 mg/dL Normal 0.1-0.4 [facility] Comment on above: Performed By: #### 2 698800, 4698738, 50921902, 2243164, 5680613, 41763157, 0985566 ####[facility] [address] [place] [address] Bilirubin.indirect [Mass or moles/Vol] 0.4 mg/dL Normal 0.1-0.9 [facility] Comment on above: Performed By: #### 2 474448, 1126508, 12490574, 1849696, 8576240, 01082945, 4356160 ####[facility] [address] [place] [address] Globulin (S) [Mass/Vol] 2.9 g/dL Normal 1.4-4.0 [facility] Comment on above: Performed By: #### 2 815199, 8616168, 48971296, 2652248, 4163198, 95490474, 8148385 ####[facility] [address] [place] [address] Protein [Mass/Vol] 6.8 g/dL Normal 6.0-7.8 [facility] Comment on above: Performed By: #### 2 296068, 9679202, 36017316, 8783917, 3466292, 80377169, 5067147 ####[facility] [address] [place] [address] Lipase Levelon 12-31-2022 Lipase [Catalytic activity/Vol] 49 U/L Normal 13-58 [facility] Comment on above: Performed By: #### 2 023538, 1594219, 79789715, 8760779, 2376841, 08017411, 3638883 ####[facility] [address] [place] [address] SEROLOGYOrdered By: Stacia Blair on 12-31-2022 Beta HCG ( test) Ql Negative (12/31/22 1:16 PM) Normal [facility] Man Sero UA With Cult Reflexon 2022 Bilirubin Ql (U) Negative Normal Negative [facility] Comment on above: Performed By: #### 1 6755967 ####[address] [address] Clarity (U) CLEAR Normal Clear [facility] Comment on above: Performed By: #### 1 6220988 ####[facility] [address] [place] [address] Color (U) YELLOW Normal Yellow [facility] Comment on above: Performed By: #### 1 9309432 ####[address] [address] Epithelial cells.squamous LM.HPF (Urine sed) [#/Area] 0-2 Normal 0-2 [facility] Comment on above: Performed By: #### 1 8884299 ####[facility] [address] [place] [address] Glucose Test strip (U) [Mass/Vol] Negative Normal Negative [facility] Comment on above: Performed By: #### 1 7533193 ####[address] [address] Hemoglobin Ql (U) Negative Normal Negative [facility] Comment on above: Performed By: #### 1 8345031 ####[address] [address] Ketones (U) [Mass/Vol] Negative Normal Negative [facility] Comment on above: Performed By: #### 1 7147257 ####[address] [address] [place].plasma/Lith ium.RBC (Bld) [Mass ratio] 0-3 Normal 0-3 [facility] Comment on above: Performed By: #### 1 4001655 ####[address] [address] Mucus Ql (Urine sed) TRACE Normal [facility] Comment on above: Performed By: #### 1 9501418 ####[address] [address] Nitrite Ql (U) Negative Normal Negative [facility] Comment on above: Performed By: #### 1 0978574 ####[address] [address] pH (U) 6.0 [pH] Invalid Interpretation Code 5.0-9.0 [facility] Comment on above: Performed By: #### 1 0283986 ####[address] [address] Protein (U) [Mass/Vol] Negative Normal Negative [facility] Comment on above: Performed By: #### 1 3314561 ####[address] [address] Specific gravity (U) [Rel density] 1.015 Invalid Interpretation Code 1.005-1.030 [facility] Comment on above: Performed By: #### 1 4815165 ####[address] [address] Type of Urine collection method Clean Catch Normal [facility] Comment on above: Performed By: #### 1 3916615 ####[address] [address] Urobilinogen Qn (U) 0.2 {Munir'U}/dL Normal 0.0-1.0 [facility] Comment on above: Performed By: #### 1 7653280 ####[facility] [address] [place] [address] WBC Auto Ql (U) Negative Normal Negative [facility] Comment on above: Performed By: #### 1 4747981 ####[facility] [address] [place] [address] WBC LM.HPF (Urine sed) [#/Area] 0-5 Normal 0-5 [facility] Comment on above: Performed By: #### 1 4765919 ####[facility] [address] [place] [address] URINALYSISOrdered By: Marlene Blair on 12-31-2022 Bilirubin [...] PM) Normal Negative [facility] UA Auto SS [place].plasma/Lith ium.RBC (Bld) [Mass ratio] 0-3 /HPF Normal [...] [Mass/Vol] Negative (12/31/22 1:16 PM) Normal Negative [facility] UA Auto SS Specific gravity (U) [Rel density] 1.015 *NA* (12/31/22 1:16 PM) Invalid Interpretation Code 1.005 - 1.030 [facility] UA Auto SS UA Spec Desc Clean Catch (12/31/22 1:16 PM) Normal [facility] UA Auto SS Urobilinogen Qn (U) 0.1269726 {Munir'U}/dL Normal 0.0 - 1.0 EU/dL [facility] UA Auto SS WBC Auto Ql (U) Negative (12/31/22 1:16 PM) Normal Negative [facility] UA Auto SS WBC LM.HPF (Urine sed) [#/Area] 0-5 /HPF Normal 0-5/HPF [facility] UA Auto SS eGFRon 12-31-2022 GFR/1.73 sq M.predicted among non-blacks MDRD (S/P/Bld) [Vol rate/Area] 100 mL/min/1.73 m2 Normal >=59 [facility] Comment on above: Order Comment: Order added by Discern Expert. Result Comment: Chief Security And Safety Officer alejandra kidney disease could be indicated at eGFR's of less than 60 mL/min/1.73m2. Kidney failure is indicated at less than 15 mL/min/1.73m2. Performed By: #### 2 463956, 2446430, 46810533, 4564445, 8087773, 54161767, 2541833 ####[facility] [address] [place] [address] Family Medicine Office/Clini c Noteon 12-29-2022 [facility] Medicine Office/Clinic Note Normal [facility] Comment on above: Result Comment: Elec tronically Signed By: Jaquan Paula\.rene\Date and Time Signed: 12/29/22 15:35 EST Provider Letteron 12-29-2022 Provider Letter Normal [facility] CNCOon 12-28-2022 CNCO Letter Text Normal [facility] CNPNon 12-28-2022 CNPN Normal [facility] CNCOon 12-25-2022 CNCO Letter Text Normal [facility] CNPNon 12-23-2022 CNPN Normal [facility] CBC With Platelet and Differ entialon 12-14-2022 Basophils (Bld) [#/Vol] 0.0 10*3/uL Normal 0.0-0.2 [facility] Comment on above: Performed By: #### L IPAS #### [facility] [address] [place] [address] Basophils/100 WBC (Bld) 0.9 % Normal [facility] Comment on above: Performed By: #### L IPAS #### [facility] [address] [place] [address] Eosinophils (Bld) [#/Vol] 0.2 10*3/uL Normal 0.0-0.7 [facility] Comment on above: Performed By: #### L IPAS #### [facility] [address] [place] [address] Eosinophils/100 WBC (Bld) 4.0 % Normal [facility] Comment on above: Performed By: #### L IPAS #### [facility] [address] [place] [address] Erythrocyte distribution width (RBC) [Ratio] 13.2 % Normal 11.5-14.5 [facility] Comment on above: Performed By: #### L IPAS #### [facility] [address] [place] [address] Hematocrit (Bld) [Volume fraction] 36.5 % Low 37.0-47.0 [facility] Comment on above: Performed By: #### L IPAS #### [facility] [address] [place] [address] Hemoglobin (Bld) [Mass/Vol] 12.4 g/dL Normal 12.0-16.0 [facility] Comment on above: Performed By: #### L IPAS #### [facility] [address] [place] [address] Lymphocytes (Bld) [#/Vol] 1.7 10*3/uL Normal 1.0-4.8 [facility] Comment on above: Performed By: #### L IPAS #### [facility] [address] [place] [address] Lymphocytes/100 WBC (Bld) 40.7 % Normal [facility] Comment on above: Performed By: #### L IPAS #### [facility] [address] [place] [address] MCH (RBC) [Entitic mass] 31.0 pg Normal 27.0-31.3 [facility] Comment on above: Performed By: #### L IPAS #### [facility] [address] [place] [address] MCHC 34.0 % Normal 33.0-37.0 [facility] Comment on above: Performed By: #### L IPAS #### [facility] [address] [place] [address] MCV (RBC) [Entitic vol] 91.3 fL Normal 79.4-94.8 [facility] Comment on above: Performed By: #### L IPAS #### [facility] [address] [place] [address] Monocytes (Bld) [#/Vol] 0.3 10*3/uL Normal 0.2-0.8 [facility] Comment on above: Performed By: #### L IPAS #### [facility] [address] [place] [address] Monocytes/100 WBC (Bld) 7.7 % Normal [facility] Comment on above: Performed By: #### L IPAS #### [facility] [address] [place] [address] Neutrophils (Bld) [#/Vol] 2.0 10*3/uL Normal 1.4-6.5 [facility] Comment on above: Performed By: #### L IPAS #### [facility] [address] [place] [address] Neutrophils/100 WBC (Bld) 46.5 % Normal [facility] Comment on above: Performed By: #### L IPAS #### [facility] [address] [place] [address] Platelets (Bld) [#/Vol] 187 10*3/uL Normal 130-400 [facility] Comment on above: Performed By: #### L IPAS #### [facility] [address] [place] [address] RBC (Bld) [#/Vol] 4.00 10*6/uL Low 4.20-5.40 [facility] Comment on above: Performed By: #### L IPAS #### [facility] [address] [place] [address] WBC (Bld) [#/Vol] 4.3 10*3/uL Low 4.8-10.8 [facility] Comment on above: Performed By: #### L IPAS #### [facility] [address] [place] [address] CTA ABDOMEN PELVIS W WO CONT RASTon [...] Addison Lorenzo MD 12/14/22 Final result Normal [facility] Comprehensive Metabolic Pane nestor 12-14-2022 Albumin [Mass/Vol] 4.0 g/dL Normal 3.5-4.6 [facility] Comment on above: Performed By: #### L IPAS #### [facility] [address] [place] [address] ALP [Catalytic activity/Vol] 70 U/L Normal 40-130 [facility] Comment on above: Performed By: #### L IPAS #### [facility] [address] [place] [address] ALT [Catalytic activity/Vol] 20 U/L Normal 0-33 [facility] Comment on above: Performed By: #### L IPAS #### [facility] [address] [place] [address] Anion gap [Moles/Vol] 16 mmol/L Critically high 9-15 [facility] Comment on above: Performed By: #### L IPAS #### [facility] [address] [place] [address] AST [Catalytic activity/Vol] 33 U/L Normal 0-35 [facility] Comment on above: Performed By: #### L IPAS #### [facility] [address] [place] [address] Bilirubin [Mass/Vol] 0.3 mg/dL Normal 0.2-0.7 [facility] Comment on above: Performed By: #### L IPAS #### [facility] [address] [place] [address] Calcium [Mass/Vol] 8.8 mg/dL Normal 8.5-9.9 [facility] Comment on above: Performed By: #### L IPAS #### [facility] [address] [place] [address] Chloride [Moles/Vol] 107 mmol/L Normal 95-107 [facility] Comment on above: Performed By: #### L IPAS #### [facility] [address] [place] [address] CO2 [Moles/Vol] 20 mmol/L Normal 20-31 [facility] Comment on above: Performed By: #### L IPAS #### [facility] [address] [place] [address] Creatinine [Mass/Vol] 0.75 mg/dL Normal 0.50-0.90 [facility] Comment on above: Performed By: #### L IPAS #### [facility] [address] [place] [address] GFR >60.0 Normal >60 [facility] Comment on above: Result Comment: Adán atric [...] secretion. Performed By: #### L IPAS #### [facility] [address] [place] [address] Globulin (S) [Mass/Vol] 2.5 g/dL Normal 2.3-3.5 [facility] Comment on above: Performed By: #### L IPAS #### [facility] [address] [place] [address] Glucose [Mass/Vol] 88 mg/dL Normal 70-99 [facility] Comment on above: Performed By: #### L IPAS #### [facility] [address] [place] [address] Potassium [Moles/Vol] 3.8 mmol/L Normal 3.4-4.9 [facility] Comment on above: Performed By: #### L IPAS #### [facility] [address] [place] [address] Protein [Mass/Vol] 6.5 g/dL Normal 6.3-8.0 [facility] Comment on above: Performed By: #### L IPAS #### [facility] [address] [place] [address] Sodium [Moles/Vol] 143 mmol/L Normal 135-144 [facility] Comment on above: Performed By: #### L IPAS #### [facility] [address] [place] [address] Urea nitrogen [Mass/Vol] 11 mg/dL Normal 6-20 [facility] Comment on above: Performed By: #### L IPAS #### [facility] [address] [place] [address] Lipaseon 12-14-2022 Lipase [Catalytic activity/Vol] 39 U/L Normal 12-95 [facility] Comment on above: Performed By: #### L IPAS #### [facility] [address] [place] [address] POCT Venouson 12-14-2022 Creatinine [Mass/Vol] 0.8 mg/dL Normal 0.6-1.2 [facility] Comment on above: Performed By: #### P GLU #### [facility] [address] [place] [address] GFR >60 Normal >60 [facility] Comment on above: Result Comment: Pedi atric [...] secretion. Performed By: #### P GLU #### [facility] [address] [place] [address] POC Performed on SEE BELOW Normal [facility] Comment on above: Result Comment: Perf ormed on POC Performed By: #### P GLU #### [facility] [address] [place] [address] POC Sample Type KIRA Normal [facility] Comment on above: Performed By: #### P GLU #### [facility] [address] [place] [address] CNCOon 12-10-2022 CNCO Letter Text Normal [facility] ALLIED HEALTHon 12-09-2022 ALLIED HEALTH Normal [facility] CASE MANAGEMon 12-09-2022 CASE MANAGEM Normal [facility] CBC panel Auto (Bld)on 12-09 Erythrocyte distribution width (RBC) [Ratio] 13.5 % Normal 11.5-15.0 [facility] Comment on above: Order Comment: Speci men Type: BLOOD SPECIMENOrdering Facility: [facility] Address: [address] [place] [address] Performed By: #### 5 8410-2 ####[facility] LABCLIA [id number] [place] [address] [place] Hematocrit (Bld) [Volume fraction] 34.9 % Low 36.0-46.0 [facility] Comment on above: Order Comment: Speci men Type: BLOOD SPECIMENOrdering Facility: [facility] Address: [address] [place] [address] Performed By: #### 5 8410-2 ####[facility] LABCLIA [id number] [place] [address] [place] Hemoglobin (Bld) [Mass/Vol] 11.7 g/dL Normal 11.5-15.5 [facility] Comment on above: Order Comment: Speci men Type: BLOOD SPECIMENOrdering Facility: [facility] Address: [address] [place] [address] Performed By: #### 5 8410-2 ####[facility] LABIA [id number] [place] [address] [place] MCH (RBC) [Entitic mass] 31.0 pg Normal 26.0-34.0 [facility] Comment on above: Order Comment: Speci men Type: BLOOD SPECIMENOrdering Facility: [facility] Address: [address] [place] [address] Performed By: #### 5 8410-2 ####[facility] LABIA [id number] [place] [address] [place] MCHC (RBC) [Mass/Vol] 33.5 g/dL Normal 30.5-36.0 [facility] Comment on above: Order Comment: Speci men Type: BLOOD SPECIMENOrdering Facility: [facility] Address: [address] [place] [address] Performed By: #### 5 8410-2 ####[facility] LABIA [id number] [place] [address] [place] MCV (RBC) [Entitic vol] 92.3 fL Normal 80.0-100.0 [facility] Comment on above: Order Comment: Speci men Type: BLOOD SPECIMENOrdering Facility: [facility] Address: [address] [place] [address] Performed By: #### 5 8410-2 ####[facility] LABCLIA [id number] [place] [address] [place] Nucleated RBC (Bld) [#/Vol] 10*3/uL Normal <0.01 [facility] Comment on above: Order Comment: Speci men Type: BLOOD SPECIMENOrdering Facility: [facility] Address: [address] [place] [address] Performed By: #### 5 8410-2 ####[facility] LABCLIA [id number] [place] [address] [place] Platelet mean volume (Bld) [Entitic vol] 12.6 fL Normal 9.0-12.7 [facility] Comment on above: Order Comment: Speci men Type: BLOOD SPECIMENOrdering Facility: [facility] Address: [address] [place] [address] Performed By: #### 5 8410-2 ####[facility] LABCLIA [id number] [place] [address] [place] Platelets (Bld) [#/Vol] 172 10*3/uL Normal 150-400 [facility] Comment on above: Order Comment: Speci men Type: BLOOD SPECIMENOrdering Facility: [facility] Address: [address] [place] [address] Performed By: #### 5 8410-2 ####[facility] LABCLIA [id number] [place] [address] [place] RBC (Bld) [#/Vol] 3.78 10*6/uL Low 3.90-5.[address] [facility] Comment on above: Order Comment: Speci men Type: BLOOD SPECIMENOrdering Facility: [facility] Address: [address] [place] [address] Performed By: #### 5 8410-2 ####[facility] LABCLIA [id number] [place] [address] [place] WBC (Bld) [#/Vol] 3.25 10*3/uL Low 3.70-11.[address] [facility] Comment on above: Order Comment: Speci men Type: BLOOD SPECIMENOrdering Facility: [facility] Address: [address] [place] [address] Performed By: #### 5 8410-2 ####[facility] LABCLIA [id number] [place] [address] [place] CNDSon 12-09-2022 CNDS Normal [facility] CNPNon 12-09-2022 CNPN Normal [facility] CONSULT PROGon 12-09-2022 CONSULT PROG Normal [facility] Comprehensive metabolic 2000 panelon 12-09-2022 Albumin [Mass/Vol] 3.6 g/dL Low 3.9-4.9 [facility] Comment on above: Order Comment: Speci men Type: BLOOD SPECIMENOrdering Facility: [facility] Address: [address] [place] [address] Performed By: #### 2 777-1, , ####[facility] LABCLIA [id number] [place] [address] [place] ALP [Catalytic activity/Vol] 59 U/L Normal 34-123 [facility] Comment on above: Order Comment: Speci men Type: BLOOD SPECIMENOrdering Facility: [facility] Address: [address] [place] [address] Performed By: #### 2 777-1, , ####[facility] LABCLIA [id number] [address] [address] [place] ALT [Catalytic activity/Vol] 13 U/L Normal 7-38 [facility] Comment on above: Order Comment: Speci men Type: BLOOD SPECIMENOrdering Facility: [facility] Address: [address] [place] [address] Performed By: #### 2 777-1, , ####[facility] LABCLIA [id number] [address] [address] [place] Anion gap [Moles/Vol] 9 mmol/L Normal 9-18 [facility] Comment on above: Order Comment: Speci men Type: BLOOD SPECIMENOrdering Facility: [facility] Address: [address] [place] [address] Performed By: #### 2 777-1, , ####[facility] LABCLIA [id number] [place] [address] [place] AST [Catalytic activity/Vol] 22 U/L Normal 13-35 [facility] Comment on above: Order Comment: Speci men Type: BLOOD SPECIMENOrdering Facility: [facility] Address: [address] [place] [address] Performed By: #### 2 777-1, , ####[facility] LABCLIA [id number] [place] [address] [place] Bilirubin [Mass/Vol] 0.2 mg/dL Normal 0.2-1.3 [facility] Comment on above: Order Comment: Speci men Type: BLOOD SPECIMENOrdering Facility: [facility] Address: [address] [place] [address] Performed By: #### 2 777-1, , ####[facility] LABCLIA [id number] [place] [address] [place] Calcium [Mass/Vol] 8.7 mg/dL Normal 8.5-10.2 [facility] Comment on above: Order Comment: Speci men Type: BLOOD SPECIMENOrdering Facility: [facility] Address: [address] [place] [address] Performed By: #### 2 777-1, , ####[facility] LABCLIA [id number] [place] [address] [place] Chloride [Moles/Vol] 108 mmol/L High 97-105 [facility] Comment on above: Order Comment: Speci men Type: BLOOD SPECIMENOrdering Facility: [facility] Address: [address] [place] [address] Performed By: #### 2 777-1, , ####[facility] LABCLIA [id number] [place] [address] [place] CO2 [Moles/Vol] 23 mmol/L Normal 22-30 [facility] Comment on above: Order Comment: Speci men Type: BLOOD SPECIMENOrdering Facility: [facility] Address: [address] [place] [address] Performed By: #### 2 777-1, , ####[facility] LABCLIA [id number] [facility] [address] [address] [place] Creatinine [Mass/Vol] 0.61 mg/dL Normal 0.58-0.96 [facility] Comment on above: Order Comment: Speci men Type: BLOOD SPECIMENOrdering Facility: [facility] Address: [address] [place] [address] Performed By: #### 2 777-1, , ####[facility] LABCLIA [id number] [place] [address] [place] Creatinine and Glomerular filtration rate.predicted panel (S/P/Bld) 121 mL/min/1.73m??? Normal >=60 [facility] Comment on above: Order Comment: Speci men Type: BLOOD SPECIMENOrdering Facility: [facility] Address: [address] [place] [address] Result Comment: Jessica mated Glomerular Filtration Rate [...] GFR. Performed By: #### 2 777-1, , ####[facility] LABCLIA [id number] [place] [id number] [place] Glucose [Mass/Vol] 79 mg/dL Normal 74-99 [facility] Comment on above: Order Comment: Speci men Type: BLOOD SPECIMENOrdering Facility: [facility] Address: [address] [place] [address] Result Comment: The [place] [employer] (ADA) provides guidance for cutoff [...] Standards of Medical Care in Diabetes 2016, [place] [employer]. Diabetes Care. 2016.39(Suppl 1). Performed By: #### 2 777-1, , ####[facility] LABCLIA [id number] [place] [address] [place] Potassium [Moles/Vol] 4.2 mmol/L Normal 3.7-5.1 [facility] Comment on above: Order Comment: Speci men Type: BLOOD SPECIMENOrdering Facility: [facility] Address: [address] [place] [address] Performed By: #### 2 777-1, , ####[facility] LABCLIA [id number] [place] [address] [place] Protein [Mass/Vol] 5.8 g/dL Low 6.3-8.0 [facility] Comment on above: Order Comment: Speci men Type: BLOOD SPECIMENOrdering Facility: [facility] Address: [address] [place] [id number] Performed By: #### 2 777-1, , ####[facility] LABCLIA [id number] [place] [id number] [place] Sodium [Moles/Vol] 140 mmol/L Normal 136-144 [facility] Comment on above: Order Comment: Speci men Type: BLOOD SPECIMENOrdering Facility: [facility] Address: [address] [place] [address] Performed By: #### 2 777-1, , ####[facility] LABCLIA [id number] [place] [address] [place] Urea nitrogen [Mass/Vol] 16 mg/dL Normal 7-21 [facility] Comment on above: Order Comment: Speci men Type: BLOOD SPECIMENOrdering Facility: [facility] Address: [address] [place] [address] Performed By: #### 2 777-1, , ####[facility] LABCLIA [id number] [place] [address] [place] Magnesium SerPl-mCncon 12-09 Magnesium [Mass/Vol] 2.0 mg/dL Normal 1.7-2.3 [facility] Comment on above: Order Comment: Speci men Type: BLOOD SPECIMENOrdering Facility: [facility] Address: [address] [place] [address] Performed By: #### 2 777-1, , ####[facility] LABIA [id number] [place] [address] [place] NURSING PROGon 12-09-2022 NURSING PROG Normal [facility] PT EDon 12-09-2022 PT ED Normal [facility] Phosphate SerPl-mCncon 12-09 Phosphate [Mass/Vol] 1.8 mg/dL Low 2.7-4.8 [facility] Comment on above: Order Comment: Speci men Type: BLOOD SPECIMENOrdering Facility: [facility] Address: [address] [place] [address] Result Comment: Resu lt rechecked. Performed By: #### 2 777-1, , ####[facility] LABCLIA [id number] [place] [id number] [place] ALLIED HEALTHon 12-08-2022 ALLIED HEALTH Normal [facility] CBC panel Auto (Bld)on 12-08 Erythrocyte distribution width (RBC) [Ratio] 13.4 % Normal 11.5-15.0 [facility] Comment on above: Order Comment: Speci men Type: BLOOD SPECIMENOrdering Facility: [facility] Address: [address] [place] [address] Performed By: #### 5 8410-2 ####[facility] LABIA [id number] [place] [address] [place] Hematocrit (Bld) [Volume fraction] 32.5 % Low 36.0-46.0 [facility] Comment on above: Order Comment: Speci men Type: BLOOD SPECIMENOrdering Facility: [facility] Address: [address] [place] [address] Performed By: #### 5 8410-2 ####[facility] LABIA [id number] [place] [address] [place] Hemoglobin (Bld) [Mass/Vol] 11.1 g/dL Low 11.5-15.5 [facility] Comment on above: Order Comment: Speci men Type: BLOOD SPECIMENOrdering Facility: [facility] Address: [address] [place] [address] Performed By: #### 5 8410-2 ####[facility] LABIA [id number] [place] [address] [place] MCH (RBC) [Entitic mass] 31.2 pg Normal 26.0-34.0 [facility] Comment on above: Order Comment: Speci men Type: BLOOD SPECIMENOrdering Facility: [facility] Address: [address] [place] [address] Performed By: #### 5 8410-2 ####[facility] LABIA [id number] [place] [address] [place] MCHC (RBC) [Mass/Vol] 34.2 g/dL Normal 30.5-36.0 [facility] Comment on above: Order Comment: Speci men Type: BLOOD SPECIMENOrdering Facility: [facility] Address: [address] [place] [address] Performed By: #### 5 8410-2 ####[facility] LABCLIA [id number] [place] [address] [place] MCV (RBC) [Entitic vol] 91.3 fL Normal 80.0-100.0 [facility] Comment on above: Order Comment: Speci men Type: BLOOD SPECIMENOrdering Facility: [facility] Address: [address] [place] [address] Performed By: #### 5 8410-2 ####[facility] LABIA [id number] [place] [address] [place] Nucleated RBC (Bld) [#/Vol] 10*3/uL Normal <0.01 [facility] Comment on above: Order Comment: Speci men Type: BLOOD SPECIMENOrdering Facility: [facility] Address: [address] [place] [address] Performed By: #### 5 8410-2 ####[facility] LABIA [id number] [place] [address] [place] Platelet mean volume (Bld) [Entitic vol] 12.4 fL Normal 9.0-12.7 [facility] Comment on above: Order Comment: Speci men Type: BLOOD SPECIMENOrdering Facility: [facility] Address: [address] [place] [address] Performed By: #### 5 8410-2 ####[facility] LABIA [id number] [place] [address] [place] Platelets (Bld) [#/Vol] 161 10*3/uL Normal 150-400 [facility] Comment on above: Order Comment: Speci men Type: BLOOD SPECIMENOrdering Facility: [facility] Address: [address] [place] [address] Performed By: #### 5 8410-2 ####[facility] LABCLIA [id number] [place] [address] [place] RBC (Bld) [#/Vol] 3.56 10*6/uL Low 3.90-5.[address] [facility] Comment on above: Order Comment: Speci men Type: BLOOD SPECIMENOrdering Facility: [facility] Address: [address] [place] [address] Performed By: #### 5 8410-2 ####[facility] LABCLIA [id number] [place] [address] [place] WBC (Bld) [#/Vol] 2.94 10*3/uL Low 3.70-11.[address] [facility] Comment on above: Order Comment: Speci men Type: BLOOD SPECIMENOrdering Facility: [facility] Address: [address] [place] [address] Performed By: #### 5 8410-2 ####[facility] LABIA [id number] [place] [address] [place] CNPNon 12-08-2022 CNPN Normal [facility] CONSULT PROGon 12-08-2022 CONSULT PROG Normal [facility] Comprehensive metabolic 2000 panelon 12-08-2022 Albumin [Mass/Vol] 3.1 g/dL Low 3.9-4.9 [facility] Comment on above: Order Comment: Speci men Type: BLOOD SPECIMENOrdering Facility: [facility] Address: [address] [place] [address] Performed By: #### 2 4323-8, 2777-1, 25417-9 ####[facility] LABIA [id number] [place] [address] [place] ALP [Catalytic activity/Vol] 57 U/L Normal 34-123 [facility] Comment on above: Order Comment: Speci men Type: BLOOD SPECIMENOrdering Facility: [facility] Address: [address] [place] [address] Performed By: #### 2 4323-8, 2776-02, ####[facility] LABCLIA [id number] [place] [address] [place] ALT [Catalytic activity/Vol] 16 U/L Normal 7-38 [facility] Comment on above: Order Comment: Speci men Type: BLOOD SPECIMENOrdering Facility: [facility] Address: [address] [place] [address] Performed By: #### 2 4323-8, 2776-02, ####[facility] LABCLIA [id number] [place] [address] [place] Anion gap [Moles/Vol] 9 mmol/L Normal 9-18 [facility] Comment on above: Order Comment: Speci men Type: BLOOD SPECIMENOrdering Facility: [facility] Address: [address] [place] [address] Performed By: #### 2 4323-8, 2776-02, ####[facility] LABIA [id number] [place] [address] [place] AST [Catalytic activity/Vol] 26 U/L Normal 13-35 [facility] Comment on above: Order Comment: Speci men Type: BLOOD SPECIMENOrdering Facility: [facility] Address: [address] [place] [address] Performed By: #### 2 4323-8, 2776-02, ####[facility] LABIA [id number] [place] [id number] [place] Bilirubin [Mass/Vol] 0.2 mg/dL Normal 0.2-1.3 [facility] Comment on above: Order Comment: Speci men Type: BLOOD SPECIMENOrdering Facility: [facility] Address: [address] [place] [address] Performed By: #### 2 4323-8, 2776-02, ####[facility] LABCLIA [id number] [address] [address] [place] Calcium [Mass/Vol] 8.2 mg/dL Low 8.5-10.2 [facility] Comment on above: Order Comment: Speci men Type: BLOOD SPECIMENOrdering Facility: [facility] Address: [address] [place] [address] Performed By: #### 2 4323-8, 2776-02, ####[facility] LABCLIA [id number] [place] [address] [place] Chloride [Moles/Vol] 109 mmol/L High 97-105 [facility] Comment on above: Order Comment: Speci men Type: BLOOD SPECIMENOrdering Facility: [facility] Address: [address] [place] [address] Performed By: #### 2 4323-8, 2776-02, ####[facility] LABCLIA [id number] [place] [address] [place] CO2 [Moles/Vol] 23 mmol/L Normal 22-30 [facility] Comment on above: Order Comment: Speci men Type: BLOOD SPECIMENOrdering Facility: [facility] Address: [address] [place] [address] Performed By: #### 2 4323-8, 2776-02, ####[facility] LABCLIA [id number] [place] [id number] [place] Creatinine [Mass/Vol] 0.73 mg/dL Normal 0.58-0.96 [facility] Comment on above: Order Comment: Speci men Type: BLOOD SPECIMENOrdering Facility: [facility] Address: [address] [place] [address] Performed By: #### 2 4323-8, 2776-02, ####[facility] LABCLIA [id number] [address] [place] Creatinine and Glomerular filtration rate.predicted panel (S/P/Bld) 112 mL/min/1.73m??? Normal >=60 [facility] Comment on above: Order Comment: Geraldo elida Type: BLOOD SPECIMENOrdering Facility: [facility] Address: [address] [place] [address] Result Comment: Jessica mated Glomerular Filtration Rate [...] GFR. Performed By: #### 2 4323-8, 2777-, ####[facility] LABCLIA [id number] [place] [address] [place] Glucose [Mass/Vol] 119 mg/dL High 74-99 [facility] Comment on above: Order Comment: Geraldo marrero Type: BLOOD SPECIMENOrdering Facility: [facility] Address: [address] [place] [address] Result Comment: The [place] [employer] (ADA) provides guidance for cutoff [...] Standards of Medical Care in Diabetes 2016, [place] [employer]. Diabetes Care. 2016.39(Suppl 1). Performed By: #### 2 4323-8, 2777-1, 10936-3 ####[facility] LABCLIA [id number] [place] [id number] [place] Potassium [Moles/Vol] 3.5 mmol/L Low 3.7-5.1 [facility] Comment on above: Order Comment: Speci men Type: BLOOD SPECIMENOrdering Facility: [facility] Address: [address] [place] [address] Performed By: #### 2 4323-8, 2776-02, ####[facility] LABCLIA [id number] [place] [address] [place] Protein [Mass/Vol] 5.2 g/dL Low 6.3-8.0 [facility] Comment on above: Order Comment: Speci men Type: BLOOD SPECIMENOrdering Facility: [facility] Address: [address] [place] [address] Performed By: #### 2 4323-8, 2776-02, ####[facility] LABIA [id number] [place] [address] [place] Sodium [Moles/Vol] 141 mmol/L Normal 136-144 [facility] Comment on above: Order Comment: Speci men Type: BLOOD SPECIMENOrdering Facility: [facility] Address: [address] [place] [address] Performed By: #### 2 4323-8, 2776-02, ####[facility] LABIA [id number] [place] [address] [place] Urea nitrogen [Mass/Vol] 10 mg/dL Normal 7-21 [facility] Comment on above: Order Comment: Speci men Type: BLOOD SPECIMENOrdering Facility: [facility] Address: [address] [place] [address] Performed By: #### 2 4323-8, 2776-02, ####[facility] LABCLIA [id number] [place] [id number] [place] Magnesium SerPl-mCncon 12-08 Magnesium [Mass/Vol] 2.1 mg/dL Normal 1.7-2.3 [facility] Comment on above: Order Comment: Speci men Type: BLOOD SPECIMENOrdering Facility: [facility] Address: [address] [place] [address] Performed By: #### 2 4323-8, 2777-1, ####[facility] LABCLIA [id number] [place] [address] [place] Phosphate SerPl-mCncon 12-08 Phosphate [Mass/Vol] 4.7 mg/dL Normal 2.7-4.8 [facility] Comment on above: Order Comment: Speci men Type: BLOOD SPECIMENOrdering Facility: [facility] Address: [address] [place] [address] Performed By: #### 2 4323-8, 2777, ####[facility] LABCLIA [id number] [place] [address] [place] CBC panel Auto (Bld)on 12-07 Erythrocyte distribution width (RBC) [Ratio] 13.2 % Normal 11.5-15.0 [facility] Comment on above: Order Comment: Speci men Type: BLOOD SPECIMENOrdering Facility: [facility] Address: [address] [place] [address] Performed By: #### 5 8410-2 ####[facility] LABCLIA [id number] [place] [address] [place] Hematocrit (Bld) [Volume fraction] 33.9 % Low 36.0-46.0 [facility] Comment on above: Order Comment: Speci men Type: BLOOD SPECIMENOrdering Facility: [facility] Address: [address] [place] [address] Performed By: #### 5 8410-2 ####[facility] LABCLIA [id number] [place] [address] [place] Hemoglobin (Bld) [Mass/Vol] 11.6 g/dL Normal 11.5-15.5 [facility] Comment on above: Order Comment: Speci men Type: BLOOD SPECIMENOrdering Facility: [facility] Address: [address] [place] [address] Performed By: #### 5 8410-2 ####[facility] LABIA [id number] [place] [address] [place] MCH (RBC) [Entitic mass] 30.9 pg Normal 26.0-34.0 [facility] Comment on above: Order Comment: Speci men Type: BLOOD SPECIMENOrdering Facility: [facility] Address: [address] [place] [address] Performed By: #### 5 8410-2 ####[facility] LABIA [id number] [place] [address] [place] MCHC (RBC) [Mass/Vol] 34.2 g/dL Normal 30.5-36.0 [facility] Comment on above: Order Comment: Speci men Type: BLOOD SPECIMENOrdering Facility: [facility] Address: [address] [place] [address] Performed By: #### 5 8410-2 ####[facility] LABIA [id number] [place] [address] [place] MCV (RBC) [Entitic vol] 90.4 fL Normal 80.0-100.0 [facility] Comment on above: Order Comment: Speci men Type: BLOOD SPECIMENOrdering Facility: [facility] Address: [address] [place] [address] Performed By: #### 5 8410-2 ####[facility] LABIA [id number] [place] [address] [place] Nucleated RBC (Bld) [#/Vol] 10*3/uL Normal <0.01 [facility] Comment on above: Order Comment: Speci men Type: BLOOD SPECIMENOrdering Facility: [facility] Address: [address] [place] [address] Performed By: #### 5 8410-2 ####[facility] LABCLIA [id number] [place] [address] [place] Platelet mean volume (Bld) [Entitic vol] 12.5 fL Normal 9.0-12.7 [facility] Comment on above: Order Comment: Speci men Type: BLOOD SPECIMENOrdering Facility: [facility] Address: [address] [place] [address] Performed By: #### 5 8410-2 ####[facility] LABCLIA [id number] [place] [address] [place] Platelets (Bld) [#/Vol] 175 10*3/uL Normal 150-400 [facility] Comment on above: Order Comment: Speci men Type: BLOOD SPECIMENOrdering Facility: [facility] Address: [address] [place] [address] Performed By: #### 5 8410-2 ####[facility] LABCLIA [id number] [place] [address] [place] RBC (Bld) [#/Vol] 3.75 10*6/uL Low 3.90-5.[address] [facility] Comment on above: Order Comment: Speci men Type: BLOOD SPECIMENOrdering Facility: [facility] Address: [address] [place] [address] Performed By: #### 5 8410-2 ####[facility] LABCLIA [id number] [place] [address] [place] WBC (Bld) [#/Vol] 2.61 10*3/uL Low 3.70-11.[address] [facility] Comment on above: Order Comment: Speci men Type: BLOOD SPECIMENOrdering Facility: [facility] Address: [address] [place] [address] Performed By: #### 5 8410-2 ####[facility] LABCLIA [id number] [place] [address] [place] CONSULTon 12-07-2022 CONSULT Normal [facility] CONSULT PROGon 12-07-2022 CONSULT PROG Normal [facility] Comprehensive metabolic 2000 panelon 12-07-2022 Albumin [Mass/Vol] 3.4 g/dL Low 3.9-4.9 [facility] Comment on above: Order Comment: Speci men Type: BLOOD SPECIMENOrdering Facility: [facility] Address: [address] [place] [address] Performed By: #### 2 4323-8 ####[facility] LABCLIA [id number] [place] [address] [place] ALP [Catalytic activity/Vol] 62 U/L Normal 34-123 [facility] Comment on above: Order Comment: Speci men Type: BLOOD SPECIMENOrdering Facility: [facility] Address: [address] [place] [address] Performed By: #### 2 4323-8 ####[facility] LABCLIA [id number] [place] [address] [place] ALT [Catalytic activity/Vol] 19 U/L Normal 7-38 [facility] Comment on above: Order Comment: Speci men Type: BLOOD SPECIMENOrdering Facility: [facility] Address: [address] [place] [address] Performed By: #### 2 4323-8 ####[facility] LABCLIA [id number] [place] [address] [place] Anion gap [Moles/Vol] 9 mmol/L Normal 9-18 [facility] Comment on above: Order Comment: Speci men Type: BLOOD SPECIMENOrdering Facility: [facility] Address: [address] [place] [address] Performed By: #### 2 4323-8 ####[facility] LABCLIA [id number] [place] [address] [place] AST [Catalytic activity/Vol] 31 U/L Normal 13-35 [facility] Comment on above: Order Comment: Speci men Type: BLOOD SPECIMENOrdering Facility: [facility] Address: [address] [place] [address] Performed By: #### 2 4323-8 ####[facility] LABCLIA [id number] [place] [address] [place] Bilirubin [Mass/Vol] 0.3 mg/dL Normal 0.2-1.3 [facility] Comment on above: Order Comment: Speci men Type: BLOOD SPECIMENOrdering Facility: [facility] Address: [address] [place] [address] Performed By: #### 2 4323-8 ####[facility] LABCLIA [id number] [place] [address] [place] Calcium [Mass/Vol] 8.6 mg/dL Normal 8.5-10.2 [facility] Comment on above: Order Comment: Speci men Type: BLOOD SPECIMENOrdering Facility: [facility] Address: [address] [place] [address] Performed By: #### 2 4323-8 ####[facility] LABCLIA [id number] [place] [address] [place] Chloride [Moles/Vol] 108 mmol/L High 97-105 [facility] Comment on above: Order Comment: Speci men Type: BLOOD SPECIMENOrdering Facility: [facility] Address: [address] [place] [address] Performed By: #### 2 4323-8 ####[facility] LABCLIA [id number] [place] [address] [place] CO2 [Moles/Vol] 22 mmol/L Normal 22-30 [facility] Comment on above: Order Comment: Speci men Type: BLOOD SPECIMENOrdering Facility: [facility] Address: [address] [place] [address] Performed By: #### 2 4323-8 ####[facility] LABCLIA [id number] [place] [address] [place] Creatinine [Mass/Vol] 0.85 mg/dL Normal 0.58-0.96 [facility] Comment on above: Order Comment: Geraldo marrero Type: BLOOD SPECIMENOrdering Facility: [facility] Address: [address] [place] [address] Performed By: #### 2 4323-8 ####[facility] LABIA [id number] [place] [address] [place] [facility] Creatinine and Glomerular filtration rate.predicted panel (S/P/Bld) 93 mL/min/1.73m??? Normal >=60 [facility] Comment on above: Order Comment: Geraldo marrero Type: BLOOD SPECIMENOrdering Facility: [facility] Address: [address] [place] [address] Result Comment: Jessica mated Glomerular Filtration Rate [...] actual GFR. Performed By: #### 2 4323-8 ####[facility] LABIA [id number] [place] [address] [place] Glucose [Mass/Vol] 80 mg/dL Normal 74-99 [facility] Comment on above: Order Comment: Geraldo marrero Type: BLOOD SPECIMENOrdering Facility: [facility] Address: [address] [place] [address] Result Comment: The [place] [employer] (ADA) provides guidance for cutoff [...] Standards of Medical Care in Diabetes 2016, [place] [employer]. Diabetes Care. 2016.39(Suppl 1). Performed By: #### 2 4323-8 ####[facility] LABCLIA [id number] [place] [address] [place] Potassium [Moles/Vol] 3.7 mmol/L Normal 3.7-5.1 [facility] Comment on above: Order Comment: Speci men Type: BLOOD SPECIMENOrdering Facility: [facility] Address: [address] [place] [address] Performed By: #### 2 4323-8 ####[facility] LABCLIA [id number] [place] [address] [place] Protein [Mass/Vol] 5.5 g/dL Low 6.3-8.0 [facility] Comment on above: Order Comment: Speci men Type: BLOOD SPECIMENOrdering Facility: [facility] Address: [address] [place] [address] Performed By: #### 2 4323-8 ####[facility] LABCLIA [id number] [place] [address] [place] Sodium [Moles/Vol] 139 mmol/L Normal 136-144 [facility] Comment on above: Order Comment: Speci men Type: BLOOD SPECIMENOrdering Facility: [facility] Address: [address] [place] [address] Performed By: #### 2 4323-8 ####[facility] LABCLIA [id number] [place] [address] [place] Urea nitrogen [Mass/Vol] 12 mg/dL Normal 7-21 [facility] Comment on above: Order Comment: Speci men Type: BLOOD SPECIMENOrdering Facility: [facility] Address: [address] [place] [address] Performed By: #### 2 4323-8 ####[facility] LABCLIA [id number] [place] [address] [place] NURSING PROGon 12-07-2022 NURSING PROG Normal [facility] XR CHEST 1V PORT POST PICC - NBon 12-07-2022 XR CHEST 1V PORT POST PICC -NB Normal [facility] CASE MGT INIT ASSESon 2022 CASE MGT INIT ASSES Normal [facility] CBC W Auto Differential pane l (Bld)on 12-06-2022 Basophils (Bld) [#/Vol] 10*3/uL Normal <0.11 [facility] Comment on above: Order Comment: Speci men Type: BLOOD SPECIMENOrdering Facility: [facility] Address: [address] [place] [address] Performed By: #### 5 7021-8 ####[facility] LABCLIA [id number] [place] [address] [place] Basophils/100 WBC (Bld) 0.7 % Normal [facility] Comment on above: Order Comment: Speci men Type: BLOOD SPECIMENOrdering Facility: [facility] Address: [address] [place] [address] Performed By: #### 5 7021-8 ####[facility] LABCLIA [id number] [place] [address] [place] Differential cell count method Nom (Bld) Auto Normal [facility] Comment on above: Order Comment: Speci men Type: BLOOD SPECIMENOrdering Facility: [facility] Address: [address] [place] [address] Performed By: #### 5 7021-8 ####[facility] LABCLIA [id number] [place] [address] [place] Eosinophils (Bld) [#/Vol] 0.09 10*3/uL Normal <0.46 [facility] Comment on above: Order Comment: Speci men Type: BLOOD SPECIMENOrdering Facility: [facility] Address: [address] [place] [address] Performed By: #### 5 7021-8 ####[facility] LABCLIA [id number] [place] [address] [place] Eosinophils/100 WBC (Bld) 2.9 % Normal [facility] Comment on above: Order Comment: Speci men Type: BLOOD SPECIMENOrdering Facility: [facility] Address: [address] [place] [address] Performed By: #### 5 7021-8 ####[facility] LABCLIA [id number] [place] [address] [place] Erythrocyte distribution width (RBC) [Ratio] 13.2 % Normal 11.5-15.0 [facility] Comment on above: Order Comment: Speci men Type: BLOOD SPECIMENOrdering Facility: [facility] Address: [address] [place] [address] Performed By: #### 5 7021-8 ####[facility] LABCLIA [id number] [place] [address] [place] Hematocrit (Bld) [Volume fraction] 33.7 % Low 36.0-46.0 [facility] Comment on above: Order Comment: Speci men Type: BLOOD SPECIMENOrdering Facility: [facility] Address: [address] [place] [address] Performed By: #### 5 7021-8 ####[facility] LABCLIA [id number] [place] [address] [place] Hemoglobin (Bld) [Mass/Vol] 11.6 g/dL Normal 11.5-15.5 [facility] Comment on above: Order Comment: Speci men Type: BLOOD SPECIMENOrdering Facility: [facility] Address: [address] [place] [address] Performed By: #### 5 7021-8 ####[facility] LABCLIA [id number] [place] [address] [place] Immature granulocytes (Bld) [#/Vol] 10*3/uL Normal <0.10 [facility] Comment on above: Order Comment: Speci men Type: BLOOD SPECIMENOrdering Facility: [facility] Address: [address] [place] [address] Performed By: #### 5 7021-8 ####[facility] LABCLIA [id number] [place] [address] [place] Immature granulocytes/100 WBC (Bld) 0.3 % Normal [facility] Comment on above: Order Comment: Speci men Type: BLOOD SPECIMENOrdering Facility: [facility] Address: [address] [place] [address] Performed By: #### 5 7021-8 ####[facility] LABCLIA [id number] [place] [address] [place] Lymphocytes (Bld) [#/Vol] 1.31 10*3/uL Normal 1.00-4.00 [facility] Comment on above: Order Comment: Speci men Type: BLOOD SPECIMENOrdering Facility: [facility] Address: [address] [place] [address] Performed By: #### 5 7021-8 ####[facility] LABCLIA [id number] [place] [address] [place] Lymphocytes/100 WBC (Bld) 42.8 % Normal [facility] Comment on above: Order Comment: Speci men Type: BLOOD SPECIMENOrdering Facility: [facility] Address: [address] [place] [address] Performed By: #### 5 7021-8 ####[facility] LABCLIA [id number] [place] [address] [place] MCH (RBC) [Entitic mass] 30.8 pg Normal 26.0-34.0 [facility] Comment on above: Order Comment: Speci men Type: BLOOD SPECIMENOrdering Facility: [facility] Address: [address] [place] [address] Performed By: #### 5 7021-8 ####[facility] LABIA [id number] [place] [address] [place] MCHC (RBC) [Mass/Vol] 34.4 g/dL Normal 30.5-36.0 [facility] Comment on above: Order Comment: Speci men Type: BLOOD SPECIMENOrdering Facility: [facility] Address: [address] [place] [address] Performed By: #### 5 7021-8 ####[facility] LABIA [id number] [place] [address] [place] MCV (RBC) [Entitic vol] 89.4 fL Normal 80.0-100.0 [facility] Comment on above: Order Comment: Speci men Type: BLOOD SPECIMENOrdering Facility: [facility] Address: [address] [place] [address] Performed By: #### 5 7021-8 ####[facility] LABIA [id number] [place] [address] [place] Monocytes (Bld) [#/Vol] 0.24 10*3/uL Normal <0.87 [facility] Comment on above: Order Comment: Speci men Type: BLOOD SPECIMENOrdering Facility: [facility] Address: [address] [place] [address] Performed By: #### 5 7021-8 ####[facility] LABCLIA [id number] [place] [address] [place] Monocytes/100 WBC (Bld) 7.8 % Normal [facility] Comment on above: Order Comment: Speci men Type: BLOOD SPECIMENOrdering Facility: [facility] Address: [address] [place] [address] Performed By: #### 5 7021-8 ####[facility] LABCLIA [id number] [place] [address] [place] Neutrophils (Bld) [#/Vol] 1.39 10*3/uL Low 1.45-7.50 [facility] Comment on above: Order Comment: Speci men Type: BLOOD SPECIMENOrdering Facility: [facility] Address: [address] [place] [address] Performed By: #### 5 7021-8 ####[facility] LABCLIA [id number] [place] [address] [place] Neutrophils/100 WBC (Bld) 45.5 % Normal [facility] Comment on above: Order Comment: Speci men Type: BLOOD SPECIMENOrdering Facility: [facility] Address: [address] [place] [address] Performed By: #### 5 7021-8 ####[facility] LABCLIA [id number] [place] [address] [place] Nucleated RBC (Bld) [#/Vol] 10*3/uL Normal <0.01 [facility] Comment on above: Order Comment: Speci men Type: BLOOD SPECIMENOrdering Facility: [facility] Address: [address] [place] [address] Performed By: #### 5 7021-8 ####[facility] LABCLIA [id number] [place] [address] [place] Nucleated RBC/100 WBC (Bld) [Ratio] 0.0 /100 WBC Normal [facility] Comment on above: Order Comment: Speci men Type: BLOOD SPECIMENOrdering Facility: [facility] Address: [address] [place] [address] Performed By: #### 5 7021-8 ####[facility] LABCLIA [id number] [place] [address] [place] Platelet mean volume (Bld) [Entitic vol] 11.9 fL Normal 9.0-12.7 [facility] Comment on above: Order Comment: Speci men Type: BLOOD SPECIMENOrdering Facility: [facility] Address: [address] [place] [address] Performed By: #### 5 7021-8 ####[facility] LABCLIA [id number] [place] [address] [place] Platelets (Bld) [#/Vol] 163 10*3/uL Normal 150-400 [facility] Comment on above: Order Comment: Speci men Type: BLOOD SPECIMENOrdering Facility: [facility] Address: [address] [place] [address] Performed By: #### 5 7021-8 ####[facility] LABIA [id number] [place] [address] [place] RBC (Bld) [#/Vol] 3.77 10*6/uL Low 3.90-5.[address] [facility] Comment on above: Order Comment: Speci men Type: BLOOD SPECIMENOrdering Facility: [facility] Address: [address] [place] [address] Performed By: #### 5 7021-8 ####[facility] LABIA [id number] [place] [address] [place] WBC (Bld) [#/Vol] 3.06 10*3/uL Low 3.70-11.[address] [facility] Comment on above: Order Comment: Speci men Type: BLOOD SPECIMENOrdering Facility: [facility] Address: [address] [place] [address] Performed By: #### 5 7021-8 ####[facility] LABIA [id number] [place] [address] [place] CTA ABD/PELV W IVCONon 12-06 CTA ABD/PELV W IVCON Normal [facility] metabolic 2000 panelon 12-06-2022 Albumin [Mass/Vol] 3.6 g/dL Low 3.9-4.9 [facility] Comment on above: Order Comment: Speci men Type: BLOOD SPECIMENOrdering Facility: [facility] Address: [address] [place] [address] Performed By: #### 2 4323-8, 3040-3, 2776-02, ####[facility] LABCLIA [id number] [place] [address] [place] ALP [Catalytic activity/Vol] 61 U/L Normal 34-123 [facility] Comment on above: Order Comment: Speci men Type: BLOOD SPECIMENOrdering Facility: [facility] Address: [address] [place] [address] Performed By: #### 2 4323-8, 3040-3, 2776-02, ####[facility] LABCLIA [id number] [place] [address] [place] ALT [Catalytic activity/Vol] 16 U/L Normal 7-38 [facility] Comment on above: Order Comment: Speci men Type: BLOOD SPECIMENOrdering Facility: [facility] Address: [address] [place] [address] Performed By: #### 2 4323-8, 3040-3, 2776-02, ####[facility] LABIA [id number] [place] [address] [place] Anion gap [Moles/Vol] 10 mmol/L Normal 9-18 [facility] Comment on above: Order Comment: Speci men Type: BLOOD SPECIMENOrdering Facility: [facility] Address: [address] [place] [address] Performed By: #### 2 4323-8, 3040-3, 2776-02, ####[facility] LABCLIA [id number] [place] [address] [place] AST [Catalytic activity/Vol] 29 U/L Normal 13-35 [facility] Comment on above: Order Comment: Speci men Type: BLOOD SPECIMENOrdering Facility: [facility] Address: [address] [place] [address] Performed By: #### 2 4323-8, 3040-3, 2777-1, ####[facility] LABCLIA [id number] [place] [id number] [place] Bilirubin [Mass/Vol] 0.2 mg/dL Normal 0.2-1.3 [facility] Comment on above: Order Comment: Speci men Type: BLOOD SPECIMENOrdering Facility: [facility] Address: [address] [place] [address] Performed By: #### 2 4323-8, 3040-3, 2777-1, ####[facility] LABCLIA [id number] [place] [address] [place] Calcium [Mass/Vol] 8.2 mg/dL Low 8.5-10.2 [facility] Comment on above: Order Comment: Speci men Type: BLOOD SPECIMENOrdering Facility: [facility] Address: [address] [place] [address] Performed By: #### 2 4323-8, 3040-3, 2776-02, ####[facility] LABCLIA [id number] [place] [address] [place] Chloride [Moles/Vol] 109 mmol/L High 97-105 [facility] Comment on above: Order Comment: Speci men Type: BLOOD SPECIMENOrdering Facility: [facility] Address: [address] [place] [address] Performed By: #### 2 4323-8, 3040-3, 1, ####[facility] LABCLIA [id number] [place] [address] [place] CO2 [Moles/Vol] 21 mmol/L Low 22-30 [facility] Comment on above: Order Comment: Speci men Type: BLOOD SPECIMENOrdering Facility: [facility] Address: [address] [place], [place] [address] Performed By: #### 2 4323-8, 3040-3, 2777-1, ####[facility] LABIA [id number] [place] [address] [place] Creatinine [Mass/Vol] 0.66 mg/dL Normal 0.58-0.96 [facility] Comment on above: Order Comment: Geraldo marrero Type: BLOOD SPECIMENOrdering Facility: [facility] Address: [address] [place] [address] Performed By: #### 2 4323-8, 3040-3, 2777-1, ####[facility] [id number] [place] [address] [place] Creatinine and Glomerular filtration rate.predicted panel (S/P/Bld) 119 mL/min/1.73m??? Normal >=60 [facility] Comment on above: Order Comment: Geraldo marrero Type: BLOOD SPECIMENOrdering Facility: [facility] Address: [address] [place] [address] Result Comment: Jessica mated Glomerular Filtration Rate [...] GFR. Performed By: #### 2 4323-8, 3040-3, 2776-, ####[facility] [id number] [place] [id number] [place] Glucose [Mass/Vol] 83 mg/dL Normal 74-99 [facility] Comment on above: Order Comment: Geraldo marrero Type: BLOOD SPECIMENOrdering Facility: [facility] Address: [address] [place] [address] Result Comment: The [place] [employer] (ADA) provides guidance for cutoff [...] Standards of Medical Care in Diabetes 2016, [place] [employer]. Diabetes Care. 2016.39(Suppl 1). Performed By: #### 2 4323-8, 3040-3, 2777-1, 55176-9 ####[facility] LABIA [id number] [place] [address] [place] Potassium [Moles/Vol] 3.7 mmol/L Normal 3.7-5.1 [facility] Comment on above: Order Comment: Speci men Type: BLOOD SPECIMENOrdering Facility: [facility] Address: [address] [place] [address] Performed By: #### 2 4323-8, 3040-3, 27708-15, ####[facility] [id number] [place] [address] [place] Protein [Mass/Vol] 5.9 g/dL Low 6.3-8.0 [facility] Comment on above: Order Comment: Speci men Type: BLOOD SPECIMENOrdering Facility: [facility] Address: [address] [place] [address] Performed By: #### 2 4323-8, 3040-3, 2777-, ####[facility] LABIA [id number] [place] [address] [place] Sodium [Moles/Vol] 140 mmol/L Normal 136-144 [facility] Comment on above: Order Comment: Speci men Type: BLOOD SPECIMENOrdering Facility: [facility] Address: [address] [place] [id number] Performed By: #### 2 4323-8, 3040-3, 2776-1, ####[facility] LABCLIA [id number] [address] [address] [place] Urea nitrogen [Mass/Vol] 13 mg/dL Normal 7-21 [facility] Comment on above: Order Comment: Speci men Type: BLOOD SPECIMENOrdering Facility: [facility] Address: [address] [place] [address] Performed By: #### 2 4323-8, 3040-3, 2776-1, ####[facility] LABCLIA [id number] [address] [place] ED NOTEon 12-06-2022 ED NOTE HNO ID: [id number] Author: Michelle Regalado RN Service: Emergency Medicine Author Type: Registered Nurse Type: ED Notes Filed: 12/06/2022 10:09 PM Note Text: Report called to DEE Argueta. Normal [facility] ED NOTE HNO ID: [id number] Author: Maia Mosher RN Service: Emergency Medicine Author Type: Registered Nurse Type: ED Notes Filed: 12/06/2022 3:19 PM Note Text: Nurse handoff given to DEE Carreon Normal [facility] ED PROV NOTEon 12-06-2022 ED PROV NOTE Normal [facility] HISTORY PHYSICALon 3 HISTORY PHYSICAL Normal [facility] Lipase SerPl-cCncon 12-07-19 23 Lipase [Catalytic activity/Vol] 40 U/L Normal 16-61 [facility] Comment on above: Order Comment: Speci men Type: BLOOD SPECIMENOrdering Facility: [facility] Address: [address] [place] [address] Performed By: #### 2 4323-8, 3040-3, 2776-1, ####[facility] LABCLIA [id number] [address] [address] [place] [facility] Magnesium [Mass/Vol] 2.0 mg/dL Normal 1.7-2.3 [facility] Comment on above: Order Comment: Speci men Type: BLOOD SPECIMENOrdering Facility: [facility] Address: [address] [place] [address] Performed By: #### 2 4323-8, 3040-3, 2777-1, ####[facility] LABCLIA [id number] [address] [place] Phosphate SerPl-mCncon 12-06 Phosphate [Mass/Vol] 2.7 mg/dL Normal 2.7-4.8 [facility] Comment on above: Order Comment: Speci men Type: BLOOD SPECIMENOrdering Facility: [facility] Address: [address] [place] [address] Performed By: #### 2 4323-8, 3040-3, 2777, ####[facility] LABIA [id number] [place] [address] [place] Urinalysis complete panel (U )on 12-06-2022 Bacteria LM.HPF (Urine sed) [#/Area] Negative Normal Negative [facility] Comment on above: Order Comment: Speci men Type: URINE SPECIMENOrdering Facility: [facility] Address: [address] [place] [address] Performed By: #### 2 4356-8 ####[facility] LABCLIA [id number] [place] [address] [place] Bilirubin Ql (U) Negative Normal Negative [facility] Comment on above: Order Comment: Speci men Type: URINE SPECIMENOrdering Facility: [facility] Address: [address] [place] [address] Performed By: #### 2 4356-8 ####[facility] LABCLIA [id number] [place] [address] [place] Clarity (Unsp spec) Clear Normal Clear [facility] Comment on above: Order Comment: Speci men Type: URINE SPECIMENOrdering Facility: [facility] Address: [address] [place] [address] Performed By: #### 2 4356-8 ####[facility] LABCLIA [id number] [place] [address] [place] Color (U) Yellow Normal Yellow [facility] Comment on above: Order Comment: Speci men Type: URINE SPECIMENOrdering Facility: [facility] Address: [address] [place] [address] Performed By: #### 2 4356-8 ####[facility] LABCLIA [id number] [place] [address] [place] Epithelial cells LM.HPF (Urine sed) [#/Area] Moderate Normal [facility] Comment on above: Order Comment: Speci men Type: URINE SPECIMENOrdering Facility: [facility] Address: [address] [place] [address] Performed By: #### 2 4356-8 ####[facility] LABCLIA [id number] [place] [address] [place] Glucose Test strip (U) [Mass/Vol] Negative Normal Negative [facility] Comment on above: Order Comment: Speci men Type: URINE SPECIMENOrdering Facility: [facility] Address: [address] [place] [address] Performed By: #### 2 4356-8 ####[facility] LABCLIA [id number] [place] [address] [place] Hemoglobin Ql (U) Negative Normal Negative [facility] Comment on above: Order Comment: Speci men Type: URINE SPECIMENOrdering Facility: [facility] Address: [address] [place] [address] Performed By: #### 2 4356-8 ####[facility] LABCLIA [id number] [place] [address] [place] Hyaline casts (Urine sed) [#/Area] 0 /[LPF] Normal 0 /LPF [facility] Comment on above: Order Comment: Speci men Type: URINE SPECIMENOrdering Facility: [facility] Address: [address] [place] [address] Performed By: #### 2 4356-8 ####[facility] LABCLIA [id number] [place] [address] [place] Ketones Ql (U) Negative Normal Negative [facility] Comment on above: Order Comment: Speci men Type: URINE SPECIMENOrdering Facility: [facility] Address: [address] [place] [address] Performed By: #### 2 4356-8 ####[facility] LABCLIA [id number] [place] [address] [place] Leukocyte esterase Test strip Ql (U) Negative Normal Negative [facility] Comment on above: Order Comment: Speci men Type: URINE SPECIMENOrdering Facility: [facility] Address: [address] [place] [address] Performed By: #### 2 4356-8 ####[facility] LABCLIA [id number] [place] [address] [place] Nitrite Ql (U) Negative Normal Negative [facility] Comment on above: Order Comment: Speci men Type: URINE SPECIMENOrdering Facility: [facility] Address: [address] [place] [address] Performed By: #### 2 4356-8 ####[facility] LABCLIA [id number] [place] [address] [place] pH (U) 7.0 [pH] Normal <8.5 [facility] Comment on above: Order Comment: Speci men Type: URINE SPECIMENOrdering Facility: [facility] Address: [address] [place] [address] Performed By: #### 2 4356-8 ####[facility] LABCLIA [id number] [place] [address] [place] Protein (U) [Mass/Vol] Negative Normal Negative [facility] Comment on above: Order Comment: Speci men Type: URINE SPECIMENOrdering Facility: [facility] Address: [address] [place] [address] Performed By: #### 2 4356-8 ####[facility] LABIA [id number] [place] [address] [place] RBC LM.HPF (Urine sed) [#/Area] 0-2 /HPF Normal 0-2 /HPF [facility] Comment on above: Order Comment: Speci men Type: URINE SPECIMENOrdering Facility: [facility] Address: [address] [place] [address] Performed By: #### 2 4356-8 ####[facility] LABIA [id number] [place] [address] [place] Specific gravity (U) [Rel density] 1.014 Normal 1.005-1.030 [facility] Comment on above: Order Comment: Speci men Type: URINE SPECIMENOrdering Facility: [facility] Address: [address] [place] [address] Performed By: #### 2 4356-8 ####[facility] LABIA [id number] [place] [address] [place] Urobilinogen Ql (U) 0.2 EU/dL Normal 0.2-1.0 EU/dL [facility] Comment on above: Order Comment: Speci men Type: URINE SPECIMENOrdering Facility: [facility] Address: [address] [place] [address] Performed By: #### 2 4356-8 ####[facility] LABIA [id number] [place] [address] [place] WBC LM.HPF (Urine sed) [#/Area] 0-5 /HPF Normal 0-5 /HPF [facility] Comment on above: Order Comment: Speci men Type: URINE SPECIMENOrdering Facility: [facility] Address: [address] [place] [address] Performed By: #### 2 4356-8 ####[facility] LABCLIA [id number] [id number] [address] [place] CNOVon 12-04-2022 CNOV Normal [facility] HISTORY PHYSICALon HISTORY PHYSICAL Normal [facility] Basic Metabolic Panelon 11-15 Anion gap [Moles/Vol] 10 mmol/L Normal -15 [facility] Comment on above: Performed By: #### L IPAS #### [facility] [address] [place] [address] Calcium [Mass/Vol] 8.4 mg/dL Low 8.5-9.9 [facility] Comment on above: Performed By: #### L IPAS #### [facility] [address] [place] [address] Chloride [Moles/Vol] 108 mmol/L Critically high 95-107 [facility] Comment on above: Performed By: #### L IPAS #### [facility] [address] [place] [address] CO2 [Moles/Vol] 23 mmol/L Normal 20-31 [facility] Comment on above: Performed By: #### L IPAS #### [facility] [address] [place] [address] Creatinine [Mass/Vol] 0.64 mg/dL Normal 0.50-0.90 [facility] Comment on above: Performed By: #### L IPAS #### [facility] [address] [place] [address] GFR >60.0 Normal >60 [facility] Comment on above: Result Comment: Adán atric [...] secretion. Performed By: #### L IPAS #### [facility] [address] [place] [address] Glucose [Mass/Vol] 86 mg/dL Normal 70-99 [facility] Comment on above: Performed By: #### L IPAS #### [facility] [address] [place] [address] Potassium [Moles/Vol] 3.9 mmol/L Normal 3.4-4.9 [facility] Comment on above: Performed By: #### L IPAS #### [facility] [address] [place] [address] Sodium [Moles/Vol] 141 mmol/L Normal 135-144 [facility] Comment on above: Performed By: #### L IPAS #### [facility] [address] [place] [address] Urea nitrogen [Mass/Vol] 14 mg/dL Normal 6-20 [facility] Comment on above: Performed By: #### L IPAS #### [facility] [address] [place] [address] CBC With Platelet and Differ entialon 12-03-2022 Basophils (Bld) [#/Vol] 0.0 10*3/uL Normal 0.0-0.2 [facility] Comment on above: Performed By: #### C BCWD #### [facility] [address] [place] [address] Basophils/100 WBC (Bld) 0.9 % Normal [facility] Comment on above: Performed By: #### C BCWD #### [facility] [address] [place] [address] Eosinophils (Bld) [#/Vol] 0.2 10*3/uL Normal 0.0-0.7 [facility] Comment on above: Performed By: #### C BCWD #### [facility] [address] [place] [address] Eosinophils/100 WBC (Bld) 5.2 % Normal [facility] Comment on above: Performed By: #### C BCWD #### [facility] [address] [place] [address] Erythrocyte distribution width (RBC) [Ratio] 13.2 % Normal 11.5-14.5 [facility] Comment on above: Performed By: #### C BCWD #### [facility] [address] [place] [address] Hematocrit (Bld) [Volume fraction] 35.9 % Low 37.0-47.0 [facility] Comment on above: Performed By: #### C BCWD #### [facility] [address] [place] [address] Hemoglobin (Bld) [Mass/Vol] 12.3 g/dL Normal 12.0-16.0 [facility] Comment on above: Performed By: #### C BCWD #### [facility] [address] [place] [address] Lymphocytes (Bld) [#/Vol] 1.3 10*3/uL Normal 1.0-4.8 [facility] Comment on above: Performed By: #### C BCWD #### [facility] [address] [place] [address] Lymphocytes/100 WBC (Bld) 38.2 % Normal [facility] Comment on above: Performed By: #### C BCWD #### [facility] [address] [place] [address] MCH (RBC) [Entitic mass] 30.8 pg Normal 27.0-31.3 [facility] Comment on above: Performed By: #### C BCWD #### [facility] [address] [place] [address] MCHC 34.3 % Normal 33.0-37.0 [facility] Comment on above: Performed By: #### C BCWD #### [facility] [address] [place] [address] MCV (RBC) [Entitic vol] 89.8 fL Normal 79.4-94.8 [facility] Comment on above: Performed By: #### C BCWD #### [facility] [address] [place] [address] Monocytes (Bld) [#/Vol] 0.4 10*3/uL Normal 0.2-0.8 [facility] Comment on above: Performed By: #### C BCWD #### [facility] [address] [place] [address] Monocytes/100 WBC (Bld) 10.9 % Normal [facility] Comment on above: Performed By: #### C BCWD #### [facility] [address] [place] [address] Neutrophils (Bld) [#/Vol] 1.5 10*3/uL Normal 1.4-6.5 [facility] Comment on above: Performed By: #### C BCWD #### [facility] [address] [place] [address] Neutrophils/100 WBC (Bld) 44.5 % Normal [facility] Comment on above: Performed By: #### C BCWD #### [facility] [address] [place] [address] Platelets (Bld) [#/Vol] 204 10*3/uL Normal 130-400 [facility] Comment on above: Performed By: #### C BCWD #### [facility] [address] [place] [address] RBC (Bld) [#/Vol] 4.00 10*6/uL Low 4.20-5.40 [facility] Comment on above: Performed By: #### C BCWD #### [facility] [address] [place] [address] WBC (Bld) [#/Vol] 3.3 10*3/uL Low 4.8-10.8 [facility] Comment on above: Performed By: #### C BCWD #### [facility] [address] [place] [address] Basophils (Bld) [#/Vol] 0.0 10*3/uL Normal 0.0-0.2 [facility] Comment on above: Performed By: #### P GLU #### [facility] [address] [place] [address] Basophils/100 WBC (Bld) 0.7 % Normal [facility] Comment on above: Performed By: #### P GLU #### [facility] [address] [place] [address] Eosinophils (Bld) [#/Vol] 0.2 10*3/uL Normal 0.0-0.7 [facility] Comment on above: Performed By: #### P GLU #### [facility] [address] [place] [address] Eosinophils/100 WBC (Bld) 5.9 % Normal [facility] Comment on above: Performed By: #### P GLU #### [facility] [address] [place] [address] Erythrocyte distribution width (RBC) [Ratio] 13.5 % Normal 11.5-14.5 [facility] Comment on above: Performed By: #### P GLU #### [facility] [address] [place] [address] Hematocrit (Bld) [Volume fraction] 33.2 % Low 37.0-47.0 [facility] Comment on above: Performed By: #### P GLU #### [facility] [address] [place] [address] Hemoglobin (Bld) [Mass/Vol] 11.8 g/dL Low 12.0-16.0 [facility] Comment on above: Performed By: #### P GLU #### [facility] [address] [place] [address] Lymphocytes (Bld) [#/Vol] 1.1 10*3/uL Normal 1.0-4.8 [facility] Comment on above: Performed By: #### P GLU #### [facility] [address] [place] [address] Lymphocytes/100 WBC (Bld) 39.5 % Normal [facility] Comment on above: Performed By: #### P GLU #### [facility] [address] [place] [address] MCH (RBC) [Entitic mass] 34.0 pg Critically high 27.0-31.3 [facility] Comment on above: Performed By: #### P GLU #### [facility] [address] [place] [address] MCHC 35.5 % Normal 33.0-37.0 [facility] Comment on above: Performed By: #### P GLU #### [facility] [address] [place] [address] MCV (RBC) [Entitic vol] 95.7 fL Critically high 79.4-94.8 [facility] Comment on above: Performed By: #### P GLU #### [facility] [address] [place] [address] Monocytes (Bld) [#/Vol] 0.3 10*3/uL Normal 0.2-0.8 [facility] Comment on above: Performed By: #### P GLU #### [facility] [address] [place] [address] Monocytes/100 WBC (Bld) 9.1 % Normal [facility] Comment on above: Performed By: #### P GLU #### [facility] [address] [place] [address] Neutrophils (Bld) [#/Vol] 1.3 10*3/uL Low 1.4-6.5 [facility] Comment on above: Performed By: #### P GLU #### [facility] [address] [place] [address] Neutrophils/100 WBC (Bld) 44.5 % Normal [facility] Comment on above: Performed By: #### P GLU #### [facility] [address] [place] [address] Platelets (Bld) [#/Vol] 186 10*3/uL Normal 130-400 [facility] Comment on above: Performed By: #### P GLU #### [facility] [address] [place] [address] RBC (Bld) [#/Vol] 3.47 10*6/uL Low 4.20-5.40 [facility] Comment on above: Performed By: #### P GLU #### [facility] [address] [place] [address] WBC (Bld) [#/Vol] 2.9 10*3/uL Low 4.8-10.8 [facility] Comment on above: Performed By: #### P GLU #### [facility] [address] [place] [address] CNPNon 12-03-2022 CNPN Normal [facility] Magnesiumon 12-03-2022 Magnesium [Mass/Vol] 1.8 mg/dL Normal 1.7-2.4 [facility] Comment on above: Performed By: #### L IPAS #### [facility] [address] [place] [address] POCT Glucoseon 12-03-2022 Glucose [Mass/Vol] 90 mg/dL Normal 70-99 [facility] Comment on above: Performed By: #### P GLU #### [facility] [address] [place] [address] POC Performed on ACCU-CHEK Normal [facility] Comment on above: Performed By: #### P GLU #### [facility] [address] [place] [address] Glucose [Mass/Vol] 101 mg/dL Critically high 70-[address] [facility] Comment on above: Performed By: #### L IPAS #### [facility] [address] [place] [address] POC Performed on ACCU-CHEK Normal [facility] Comment on above: Performed By: #### L IPAS #### [facility] [address] [place] [address] Phosphoruson 12-03-2022 Phosphate [Mass/Vol] 3.6 mg/dL Normal 2.3-4.8 [facility] Comment on above: Performed By: #### L IPAS #### [facility] [address] [place] [address] Basic Metabolic Panelon 11-15 Anion gap [Moles/Vol] 6 mmol/L Low 9-15 [facility] Comment on above: Performed By: #### C BCWD #### [facility] [address] [place] [address] Calcium [Mass/Vol] 8.4 mg/dL Low 8.5-9.9 [facility] Comment on above: Performed By: #### C BCWD #### [facility] [address] [place] [address] Chloride [Moles/Vol] 107 mmol/L Normal 95-107 [facility] Comment on above: Performed By: #### C BCWD #### [facility] [address] [place] [address] CO2 [Moles/Vol] 25 mmol/L Normal 20-31 [facility] Comment on above: Performed By: #### C BCWD #### [facility] [address] [place] [address] Creatinine [Mass/Vol] 0.57 mg/dL Normal 0.50-0.90 [facility] Comment on above: Performed By: #### C BCWD #### [facility] [address] [place] [address] GFR >60.0 Normal >60 [facility] Comment on above: Result Comment: Adán kennyc [...] secretion. Performed By: #### C BCWD #### [facility] [address] [place] [address] Glucose [Mass/Vol] 104 mg/dL Critically high 70-[address] [facility] Comment on above: Performed By: #### C BCWD #### [facility] [address] [place] [address] Potassium [Moles/Vol] 4.0 mmol/L Normal 3.4-4.9 [facility] Comment on above: Performed By: #### C BCWD #### [facility] [address] [place] [address] Sodium [Moles/Vol] 138 mmol/L Normal 135-144 [facility] Comment on above: Performed By: #### C BCWD #### [facility] [address] [place] [address] Urea nitrogen [Mass/Vol] 12 mg/dL Normal 6-20 [facility] Comment on above: Performed By: #### C BCWD #### [facility] [address] [place] [address] CBC With Platelet and Differ entialon 12-02-2022 Anisocytosis Ql (Bld) 1+ Normal [facility] Comment on above: Performed By: #### C BCWD #### [facility] [address] [place] [address] Basophils (Bld) [#/Vol] 0.0 10*3/uL Normal 0.0-0.2 [facility] Comment on above: Performed By: #### C BCWD #### [facility] [address] [place] [address] Basophils/100 WBC (Bld) 1.0 % Normal [facility] Comment on above: Performed By: #### C BCWD #### [facility] [address] [place] [address] Eosinophils (Bld) [#/Vol] 0.2 10*3/uL Normal 0.0-0.7 [facility] Comment on above: Performed By: #### C BCWD #### [facility] [address] [place] [address] Eosinophils/100 WBC (Bld) 9.0 % Normal [facility] Comment on above: Performed By: #### C BCWD #### [facility] [address] [place] [address] Lymphocytes (Bld) [#/Vol] 0.9 10*3/uL Low 1.0-4.8 [facility] Comment on above: Performed By: #### C BCWD #### [facility] [address] [place] [address] Lymphocytes/100 WBC (Bld) 35.0 % Normal [facility] Comment on above: Performed By: #### C BCWD #### [facility] [address] [place] [address] Monocytes (Bld) [#/Vol] 0.1 10*3/uL Low 0.2-0.8 [facility] Comment on above: Performed By: #### C BCWD #### [facility] [address] [place] [address] Monocytes/100 WBC (Bld) 4.6 % Normal [facility] Comment on above: Performed By: #### C BCWD #### [facility] [address] [place] [address] Neutrophils (Bld) [#/Vol] 1.4 10*3/uL Normal 1.4-6.5 [facility] Comment on above: Performed By: #### C BCWD #### [facility] [address] [place] [address] Neutrophils/100 WBC (Bld) 50.0 % Normal [facility] Comment on above: Performed By: #### C BCWD #### [facility] [address] [place] [address] Ovalocytes 1+ Normal [facility] Comment on above: Performed By: #### C BCWD #### [facility] [address] [place] [address] Poikilocytosis 1+ Normal [facility] Comment on above: Performed By: #### C BCWD #### [facility] [address] [place] [address] Erythrocyte distribution width (RBC) [Ratio] 13.3 % Normal 11.5-14.5 [facility] Comment on above: Performed By: #### C BCWD #### [facility] [address] [place] [address] Hematocrit (Bld) [Volume fraction] 34.0 % Low 37.0-47.0 [facility] Comment on above: Performed By: #### C BCWD #### [facility] [address] [place] [address] Hemoglobin (Bld) [Mass/Vol] 11.8 g/dL Low 12.0-16.0 [facility] Comment on above: Performed By: #### C BCWD #### [facility] [address] [place] [address] MCH (RBC) [Entitic mass] 31.3 pg Normal 27.0-31.3 [facility] Comment on above: Performed By: #### C BCWD #### [facility] [address] [place] [address] MCHC 34.7 % Normal 33.0-37.0 [facility] Comment on above: Performed By: #### C BCWD #### [facility] [address] [place] [address] MCV (RBC) [Entitic vol] 90.2 fL Normal 79.4-94.8 [facility] Comment on above: Performed By: #### C BCWD #### [facility] [address] [place] [address] Platelets (Bld) [#/Vol] 201 10*3/uL Normal 130-400 [facility] Comment on above: Performed By: #### C BCWD #### [facility] [address] [place] [address] RBC (Bld) [#/Vol] 3.77 10*6/uL Low 4.20-5.40 [facility] Comment on above: Performed By: #### C BCWD #### [facility] [address] [place] [address] WBC (Bld) [#/Vol] 2.7 10*3/uL Low 4.8-10.8 [facility] Comment on above: Performed By: #### C BCWD #### [facility] [address] [place] [address] Magnesiumon 12-02-2022 Magnesium [Mass/Vol] 1.9 mg/dL Normal 1.7-2.4 [facility] Comment on above: Performed By: #### C BCWD #### [facility] [address] [place] [address] POCT Glucoseon 12-02-2022 Glucose [Mass/Vol] 115 mg/dL Critically high 70-[address] [facility] Comment on above: Performed By: #### P GLU #### [facility] [address] [place] [address] POC Performed on ACCU-CHEK Normal [facility] Comment on above: Performed By: #### P GLU #### [facility] [address] [place] [address] Glucose [Mass/Vol] 94 mg/dL Normal 70-99 [facility] Comment on above: Performed By: #### P GLU #### [facility] [address] [place] [address] POC Performed on ACCU-CHEK Normal [facility] Comment on above: Performed By: #### P GLU #### [facility] [address] [place] [address] Glucose [Mass/Vol] 94 mg/dL Normal 70-99 [facility] Comment on above: Performed By: #### P GLU #### [facility] [address] [place] [address] POC Performed on ACCU-CHEK Normal [facility] Comment on above: Performed By: #### P GLU #### [facility] [address] [place] [address] Phosphoruson 12-02-2022 Phosphate [Mass/Vol] 3.7 mg/dL Normal 2.3-4.8 [facility] Comment on above: Performed By: #### P GLU #### [facility] [address] [place] [address] CNPNon 12-01-2022 CNPN Normal [facility] Metabolic Pane nestor 12-01-2022 Albumin [Mass/Vol] 3.7 g/dL Normal 3.5-4.6 [facility] Comment on above: Performed By: #### C BCWD #### [facility] [address] [place] [address] ALP [Catalytic activity/Vol] 62 U/L Normal 40-130 [facility] Comment on above: Performed By: #### C BCWD #### [facility] [address] [place] [address] ALT [Catalytic activity/Vol] 16 U/L Normal 0-33 [facility] Comment on above: Performed By: #### C BCWD #### [facility] [address] [place] [address] Anion gap [Moles/Vol] 7 mmol/L Low 9-15 [facility] Comment on above: Performed By: #### C BCWD #### [facility] [address] [place] [address] AST [Catalytic activity/Vol] 30 U/L Normal 0-35 [facility] Comment on above: Performed By: #### C BCWD #### [facility] [address] [place] [address] Bilirubin [Mass/Vol] 0.3 mg/dL Normal 0.2-0.7 [facility] Comment on above: Performed By: #### C BCWD #### [facility] [address] [place] [address] Calcium [Mass/Vol] 8.3 mg/dL Low 8.5-9.9 [facility] Comment on above: Performed By: #### C BCWD #### [facility] [address] [place] [address] Chloride [Moles/Vol] 106 mmol/L Normal 95-107 [facility] Comment on above: Performed By: #### C BCWD #### [facility] [address] [place] [address] CO2 [Moles/Vol] 23 mmol/L Normal 20-31 [facility] Comment on above: Performed By: #### C BCWD #### [facility] [address] [place] [address] Creatinine [Mass/Vol] 0.66 mg/dL Normal 0.50-0.90 [facility] Comment on above: Performed By: #### C BCWD #### [facility] [address] [place] [address] GFR >60.0 Normal >60 [facility] Comment on above: Result Comment: Huberi atric [...] secretion. Performed By: #### C BCWD #### [facility] [address] [place] [address] Globulin (S) [Mass/Vol] 2.1 g/dL Low 2.3-3.5 [facility] Comment on above: Performed By: #### C BCWD #### [facility] [address] [place] [address] Glucose [Mass/Vol] 104 mg/dL Critically high 70-[address] [facility] Comment on above: Performed By: #### C BCWD #### [facility] [address] [place] [address] Potassium [Moles/Vol] 3.9 mmol/L Normal 3.4-4.9 [facility] Comment on above: Performed By: #### C BCWD #### [facility] [address] [place] [address] Protein [Mass/Vol] 5.8 g/dL Low 6.3-8.0 [facility] Comment on above: Performed By: #### C BCWD #### [facility] [address] [place] [address] Sodium [Moles/Vol] 136 mmol/L Normal 135-144 [facility] Comment on above: Performed By: #### C BCWD #### [facility] [address] [place] [address] Urea nitrogen [Mass/Vol] 6 mg/dL Normal 6-20 [facility] Comment on above: Performed By: #### C BCWD #### [facility] [address] [place] [address] Magnesiumon 12-01-2022 Magnesium [Mass/Vol] 2.0 mg/dL Normal 1.7-2.4 [facility] Comment on above: Performed By: #### C BCWD #### [facility] [address] [place] [address] POCT Glucoseon 12-01-2022 Glucose [Mass/Vol] 113 mg/dL Critically high 70-[address] [facility] Comment on above: Performed By: #### P GLU #### [facility] [address] [place] [address] POC Performed on ACCU-CHEK Normal [facility] Comment on above: Result Comment: Robby meneses RN or Performed By: #### P GLU #### [facility] [address] [place] [address] Phosphoruson 12-01-2022 Phosphate [Mass/Vol] 3.7 mg/dL Normal 2.3-4.8 [facility] Comment on above: Performed By: #### P GLU #### [facility] [address] [place] [address] Triglycerideson 12-01-2022 Triglyceride [Mass/Vol] 111 mg/dL Normal 0-150 [facility] Comment on above: Result Comment: ATP III Triglycerides Classification is Normal. Performed By: #### T RIG #### [facility] [address] [place] [address] Comprehensive Metabolic Pane nestor 11-30-2022 Albumin [Mass/Vol] 3.5 g/dL Normal 3.5-4.6 [facility] Comment on above: Performed By: #### C BCWD #### [facility] [address] [place] [address] ALP [Catalytic activity/Vol] 45 U/L Normal 40-130 [facility] Comment on above: Performed By: #### C BCWD #### [facility] [address] [place] [address] ALT [Catalytic activity/Vol] 15 U/L Normal 0-33 [facility] Comment on above: Result Comment: Spec imen hemolysis has exceeded the interference as defined by Kamran. Result may be affected. Suggest recollection if clinically indicated. Performed By: #### C BCWD #### [facility] [address] [place] [address] Anion gap [Moles/Vol] 6 mmol/L Low 9-15 [facility] Comment on above: Performed By: #### C BCWD #### [facility] [address] [place] [address] AST [Catalytic activity/Vol] 40 U/L Critically high 0-35 [facility] Comment on above: Result Comment: Spec imen hemolysis has exceeded the interference as defined by Kamran. Value may be falsely increased. Suggest recollection if clinically indicated. Performed By: #### C BCWD #### [facility] [address] [place] [address] Bilirubin [Mass/Vol] 0.3 mg/dL Normal 0.2-0.7 [facility] Comment on above: Performed By: #### C BCWD #### [facility] [address] [place] [address] Calcium [Mass/Vol] 8.3 mg/dL Low 8.5-9.9 [facility] Comment on above: Performed By: #### C BCWD #### [facility] [address] [place] [address] Chloride [Moles/Vol] 107 mmol/L Normal 95-107 [facility] Comment on above: Performed By: #### C BCWD #### [facility] [address] [place] [address] CO2 [Moles/Vol] 23 mmol/L Normal 20-31 [facility] Comment on above: Performed By: #### C BCWD #### [facility] [address] [place] [address] Creatinine [Mass/Vol] 0.69 mg/dL Normal 0.50-0.90 [facility] Comment on above: Performed By: #### C BCWD #### [facility] [address] [place] [address] GFR >60.0 Normal >60 [facility] Comment on above: Result Comment: Adán kennyc [...] secretion. Performed By: #### C BCWD #### [facility] [address] [place] [address] Globulin (S) [Mass/Vol] 1.9 g/dL Low 2.3-3.5 [facility] Comment on above: Performed By: #### C BCWD #### [facility] [address] [place] [address] Glucose [Mass/Vol] 86 mg/dL Normal 70-99 [facility] Comment on above: Performed By: #### C BCWD #### [facility] [address] [place] [address] Potassium [Moles/Vol] 4.6 mmol/L Normal 3.4-4.9 [facility] Comment on above: Result Comment: Spec imen hemolysis has exceeded the interference as defined by Kamran. Value may be falsely increased. Suggest recollection if clinically indicated. Performed By: #### C BCWD #### [facility] [address] [place] [address] Protein [Mass/Vol] 5.4 g/dL Low 6.3-8.0 [facility] Comment on above: Performed By: #### C BCWD #### [facility] [address] [place] [address] Sodium [Moles/Vol] 136 mmol/L Normal 135-144 [facility] Comment on above: Performed By: #### C BCWD #### [facility] [address] [place] [address] Urea nitrogen [Mass/Vol] 4 mg/dL Low 6-20 [facility] Comment on above: Performed By: #### C BCWD #### [facility] [address] [place] [address] IR PICC WO SQ PORT/PUMP > 5 [...] caps and surgical masks. In addition, the chiller operator and sales assistant donned sterile gowns and gloves after [...] sheath was placed over the guidewire. A 5-Cambodian dual-lumen PICC was advanced through the sheath, [...] Cedrick Billings MD 11/30/22 Final result Normal [facility] Magnesiumon 11-30-2022 Magnesium [Mass/Vol] 1.9 mg/dL Normal 1.7-2.4 [facility] Comment on above: Performed By: #### P GLU #### [facility] [address] [place] [address] Phosphoruson 11-30-2022 Phosphate [Mass/Vol] 3.2 mg/dL Normal 2.3-4.8 [facility] Comment on above: Performed By: #### C BCWD #### [facility] [address] [place] [address] CBC With Platelet and Differ entialon 11-29-2022 Basophils (Bld) [#/Vol] 0.0 10*3/uL Normal 0.0-0.2 [facility] Comment on above: Performed By: #### P GLU #### [facility] [address] [place] [address] Basophils/100 WBC (Bld) 0.6 % Normal [facility] Comment on above: Performed By: #### P GLU #### [facility] [address] [place] [address] Eosinophils (Bld) [#/Vol] 0.1 10*3/uL Normal 0.0-0.7 [facility] Comment on above: Performed By: #### P GLU #### [facility] [address] [place] [address] Eosinophils/100 WBC (Bld) 4.4 % Normal [facility] Comment on above: Performed By: #### P GLU #### [facility] [address] [place] [address] Erythrocyte distribution width (RBC) [Ratio] 13.6 % Normal 11.5-14.5 [facility] Comment on above: Performed By: #### P GLU #### [facility] [address] [place] [address] Hematocrit (Bld) [Volume fraction] 36.4 % Low 37.0-47.0 [facility] Comment on above: Performed By: #### P GLU #### [facility] [address] [place] [address] Hemoglobin (Bld) [Mass/Vol] 12.2 g/dL Normal 12.0-16.0 [facility] Comment on above: Performed By: #### P GLU #### [facility] [address] [place] [address] Lymphocytes (Bld) [#/Vol] 1.3 10*3/uL Normal 1.0-4.8 [facility] Comment on above: Performed By: #### P GLU #### [facility] [address] [place] [address] Lymphocytes/100 WBC (Bld) 41.0 % Normal [facility] Comment on above: Performed By: #### P GLU #### [facility] [address] [place] [address] MCH (RBC) [Entitic mass] 30.9 pg Normal 27.0-31.3 [facility] Comment on above: Performed By: #### P GLU #### [facility] [address] [place] [address] MCHC 33.5 % Normal 33.0-37.0 [facility] Comment on above: Performed By: #### P GLU #### [facility] [address] [place] [address] MCV (RBC) [Entitic vol] 92.2 fL Normal 79.4-94.8 [facility] Comment on above: Performed By: #### P GLU #### [facility] [address] [place] [address] Monocytes (Bld) [#/Vol] 0.3 10*3/uL Normal 0.2-0.8 [facility] Comment on above: Performed By: #### P GLU #### [facility] [address] [place] [address] Monocytes/100 WBC (Bld) 9.8 % Normal [facility] Comment on above: Performed By: #### P GLU #### [facility] [address] [place] [address] Neutrophils (Bld) [#/Vol] 1.4 10*3/uL Normal 1.4-6.5 [facility] Comment on above: Performed By: #### P GLU #### [facility] [address] [place] [address] Neutrophils/100 WBC (Bld) 44.2 % Normal [facility] Comment on above: Performed By: #### P GLU #### [facility] [address] [place] [address] Platelets (Bld) [#/Vol] 242 10*3/uL Normal 130-400 [facility] Comment on above: Performed By: #### P GLU #### [facility] [address] [place] [address] RBC (Bld) [#/Vol] 3.95 10*6/uL Low 4.20-5.40 [facility] Comment on above: Performed By: #### P GLU #### [facility] [address] [place] [address] WBC (Bld) [#/Vol] 3.2 10*3/uL Low 4.8-10.8 [facility] Comment on above: Performed By: #### P GLU #### [facility] [address] [place] [address] Comprehensive Metabolic Pane nestor 11-29-2022 Albumin [Mass/Vol] 3.5 g/dL Normal 3.5-4.6 [facility] Comment on above: Performed By: #### P GLU #### [facility] [address] [place] [address] ALP [Catalytic activity/Vol] 60 U/L Normal 40-130 [facility] Comment on above: Performed By: #### P GLU #### [facility] [address] [place] [address] ALT [Catalytic activity/Vol] 15 U/L Normal 0-33 [facility] Comment on above: Performed By: #### P GLU #### [facility] [address] [place] [address] Anion gap [Moles/Vol] 8 mmol/L Low 9-15 [facility] Comment on above: Performed By: #### P GLU #### [facility] [address] [place] [address] AST [Catalytic activity/Vol] 28 U/L Normal 0-35 [facility] Comment on above: Performed By: #### P GLU #### [facility] [address] [place] [address] Bilirubin [Mass/Vol] mg/dL Normal 0.2-0.7 [facility] Comment on above: Performed By: #### P GLU #### [facility] [address] [place] [address] Calcium [Mass/Vol] 8.4 mg/dL Low 8.5-9.9 [facility] Comment on above: Performed By: #### P GLU #### [facility] [address] [place] [address] Chloride [Moles/Vol] 113 mmol/L Critically high 95-107 [facility] Comment on above: Performed By: #### P GLU #### [facility] [address] [place] [address] CO2 [Moles/Vol] 23 mmol/L Normal 20-31 [facility] Comment on above: Performed By: #### P GLU #### [facility] [address] [place] [address] Creatinine [Mass/Vol] 0.71 mg/dL Normal 0.50-0.90 [facility] Comment on above: Performed By: #### P GLU #### [facility] [address] [place] [address] GFR >60.0 Normal >60 [facility] Comment on above: Result Comment: Pedi atric [...] secretion. Performed By: #### P GLU #### [facility] [address] [place] [address] Globulin (S) [Mass/Vol] 2.2 g/dL Low 2.3-3.5 [facility] Comment on above: Performed By: #### P GLU #### [facility] [address] [place] [address] Glucose [Mass/Vol] 85 mg/dL Normal 70-99 [facility] Comment on above: Performed By: #### P GLU #### [facility] [address] [place] [address] Potassium [Moles/Vol] 4.2 mmol/L Normal 3.4-4.9 [facility] Comment on above: Performed By: #### P GLU #### [facility] [address] [place] [address] Protein [Mass/Vol] 5.7 g/dL Low 6.3-8.0 [facility] Comment on above: Performed By: #### P GLU #### [facility] [address] [place] [address] Sodium [Moles/Vol] 144 mmol/L Normal 135-144 [facility] Comment on above: Performed By: #### P GLU #### [facility] [address] [place] [address] Urea nitrogen [Mass/Vol] 5 mg/dL Low 6-20 [facility] Comment on above: Performed By: #### P GLU #### [facility] [address] [place] [address] Lactic Acidon 11-29-2022 Lactate [Moles/Vol] 0.9 mmol/L Normal 0.5-2.2 [facility] Comment on above: Performed By: #### L IPAS #### [facility] [address] [place] [address] Lipaseon 11-29-2022 Lipase [Catalytic activity/Vol] 48 U/L Normal 12-95 [facility] Comment on above: Performed By: #### L IPAS #### [facility] [address] [place] [address] Magnesiumon 11-29-2022 Magnesium [Mass/Vol] 1.9 mg/dL Normal 1.7-2.4 [facility] Comment on above: Performed By: #### P GLU #### [facility] [address] [place] [address] Partial Thromboplastin Timeo n 11-29-2022 aPTT Coag (Bld) [Time] 33.0 s Normal 24.4-36.8 [facility] Comment on above: Result Comment: Effe ctive 12/20/2019: Heparin Therapeutic Range: 64.0 ? 98.0 seconds. Performed By: #### C BCWD #### [facility] [address] [place] [address] Phosphoruson 11-29-2022 Phosphate [Mass/Vol] 3.3 mg/dL Normal 2.3-4.8 [facility] Comment on above: Performed By: #### C BCWD #### [facility] [address] [place] [address] Prothrombin Timeon INR Coag (PPP) [Relative time] 1.2 {INR} Normal [facility] Comment on above: Performed By: #### P T #### [facility] [address] [place] [address] PT Coag (PPP) [Time] 15.6 s Critically high 12.3-14.9 [facility] Comment on above: Performed By: #### P T #### [facility] [address] [place] [address] Prealbuminon 11-28-2022 Prealbumin [Mass/Vol] 15.0 mg/dL Low 20.0-40.0 [facility] Comment on above: Order Comment: Colle ction has been rescheduled by DUEAS at 11/28/2022 18:15 Reason:Failed attempt at venipuncture Performed By: #### L IPAS #### [facility] [address] [place] [address] Amylaseon 11-27-2022 Amylase [Catalytic activity/Vol] 44 U/L Normal 22-93 [facility] Comment on above: Performed By: #### P GLU #### [facility] [address] [place] [address] CBC With Platelet and Differ entialon 11-27-2022 Basophils (Bld) [#/Vol] 0.0 10*3/uL Normal 0.0-0.2 [facility] Comment on above: Performed By: #### P GLU #### [facility] [address] [place] [address] Basophils/100 WBC (Bld) 0.7 % Normal [facility] Comment on above: Performed By: #### P GLU #### [facility] [address] [place] [address] Eosinophils (Bld) [#/Vol] 0.1 10*3/uL Normal 0.0-0.7 [facility] Comment on above: Performed By: #### P GLU #### [facility] [address] [place] [address] Eosinophils/100 WBC (Bld) 1.4 % Normal [facility] Comment on above: Performed By: #### P GLU #### [facility] [address] [place] [address] Erythrocyte distribution width (RBC) [Ratio] 13.3 % Normal 11.5-14.5 [facility] Comment on above: Performed By: #### P GLU #### [facility] [address] [place] [address] Hematocrit (Bld) [Volume fraction] 38.0 % Normal 37.0-47.0 [facility] Comment on above: Performed By: #### P GLU #### [facility] [address] [place] [address] Hemoglobin (Bld) [Mass/Vol] 12.7 g/dL Normal 12.0-16.0 [facility] Comment on above: Performed By: #### P GLU #### [facility] [address] [place] [address] Lymphocytes (Bld) [#/Vol] 1.4 10*3/uL Normal 1.0-4.8 [facility] Comment on above: Performed By: #### P GLU #### [facility] [address] [place] [address] Lymphocytes/100 WBC (Bld) 32.1 % Normal [facility] Comment on above: Performed By: #### P GLU #### [facility] [address] [place] [address] MCH (RBC) [Entitic mass] 30.6 pg Normal 27.0-31.3 [facility] Comment on above: Performed By: #### P GLU #### [facility] [address] [place] [address] MCHC 33.4 % Normal 33.0-37.0 [facility] Comment on above: Performed By: #### P GLU #### [facility] [address] [place] [address] MCV (RBC) [Entitic vol] 91.6 fL Normal 79.4-94.8 [facility] Comment on above: Performed By: #### P GLU #### [facility] [address] [place] [address] Monocytes (Bld) [#/Vol] 0.3 10*3/uL Normal 0.2-0.8 [facility] Comment on above: Performed By: #### P GLU #### [facility] [address] [place] [address] Monocytes/100 WBC (Bld) 6.0 % Normal [facility] Comment on above: Performed By: #### P GLU #### [facility] [address] [place] [address] Neutrophils (Bld) [#/Vol] 2.6 10*3/uL Normal 1.4-6.5 [facility] Comment on above: Performed By: #### P GLU #### [facility] [address] [place] [address] Neutrophils/100 WBC (Bld) 59.6 % Normal [facility] Comment on above: Performed By: #### P GLU #### [facility] [address] [place] [address] Platelets (Bld) [#/Vol] 238 10*3/uL Normal 130-400 [facility] Comment on above: Performed By: #### P GLU #### [facility] [address] [place] [address] RBC (Bld) [#/Vol] 4.15 10*6/uL Low 4.20-5.40 [facility] Comment on above: Performed By: #### P GLU #### [facility] [address] [place] [address] WBC (Bld) [#/Vol] 4.4 10*3/uL Low 4.8-10.8 [facility] Comment on above: Performed By: #### P GLU #### [facility] [address] [place] [address] [address] ABDOMEN PELVIS W IV CONTR Daljit [...] Iker Ayala MD 11/27/22 Final result Normal [facility] CTA CHEST W WO CONTRASTon CTA CHEST [...] Jason Mcrae MD 11/27/22 Final result Normal [facility] Comprehensive Metabolic Pane nestor 11-27-2022 Albumin [Mass/Vol] 4.0 g/dL Normal 3.5-4.6 [facility] Comment on above: Performed By: #### P GLU #### [facility] [address] [place] [address] ALP [Catalytic activity/Vol] 60 U/L Normal 40-130 [facility] Comment on above: Performed By: #### P GLU #### [facility] [address] [place] [address] ALT [Catalytic activity/Vol] 20 U/L Normal 0-33 [facility] Comment on above: Performed By: #### P GLU #### [facility] [address] [place] [address] Anion gap [Moles/Vol] 10 mmol/L Normal 9-15 [facility] Comment on above: Performed By: #### P GLU #### [facility] [address] [place] [address] AST [Catalytic activity/Vol] 34 U/L Normal 0-35 [facility] Comment on above: Performed By: #### P GLU #### [facility] [address] [place] [address] Bilirubin [Mass/Vol] 0.4 mg/dL Normal 0.2-0.7 [facility] Comment on above: Performed By: #### P GLU #### [facility] [address] [place] [address] Calcium [Mass/Vol] 8.4 mg/dL Low 8.5-9.9 [facility] Comment on above: Performed By: #### P GLU #### [facility] [address] [place] [address] Chloride [Moles/Vol] 108 mmol/L Critically high 95-107 [facility] Comment on above: Performed By: #### P GLU #### [facility] [address] [place] [address] CO2 [Moles/Vol] 20 mmol/L Normal 20-31 [facility] Comment on above: Performed By: #### P GLU #### [facility] [address] [place] [address] Creatinine [Mass/Vol] 0.68 mg/dL Normal 0.50-0.90 [facility] Comment on above: Performed By: #### P GLU #### [facility] [address] [place] [address] GFR >60.0 Normal >60 [facility] Comment on above: Result Comment: Huberi atric [...] secretion. Performed By: #### P GLU #### [facility] [address] [place] [address] Globulin (S) [Mass/Vol] 2.3 g/dL Normal 2.3-3.5 [facility] Comment on above: Performed By: #### P GLU #### [facility] [address] [place] [address] Glucose [Mass/Vol] 82 mg/dL Normal 70-99 [facility] Comment on above: Performed By: #### P GLU #### [facility] [address] [place] [address] Potassium [Moles/Vol] 3.7 mmol/L Normal 3.4-4.9 [facility] Comment on above: Performed By: #### P GLU #### [facility] [address] [place] [address] Protein [Mass/Vol] 6.3 g/dL Normal 6.3-8.0 [facility] Comment on above: Performed By: #### P GLU #### [facility] [address] [place] [address] Sodium [Moles/Vol] 138 mmol/L Normal 135-144 [facility] Comment on above: Performed By: #### P GLU #### [facility] [address] [place] [address] Urea nitrogen [Mass/Vol] 8 mg/dL Normal 6-20 [facility] Comment on above: Performed By: #### P GLU #### [facility] [address] [place] [address] High Sensitivity Troponin To n 11-27-2022 High Sensitivity Troponin T <6 Normal 0-19 [facility] Comment on above: Result Comment: High Sensitivity Troponin values cannot be compared with other Troponin methodologies. Performed By: #### T RP5 #### [facility] [address] [place] [address] High Sensitivity Troponin T <6 Normal 0-19 [facility] Comment on above: Result Comment: High Sensitivity Troponin values cannot be compared with other Troponin methodologies. Performed By: #### P GLU #### [facility] [address] [place] [address] Lactic Acidon 11-27-2022 Lactate [Moles/Vol] 1.0 mmol/L Normal 0.5-2.2 [facility] Comment on above: Performed By: #### P GLU #### [facility] [address] [place] [address] Lipaseon 11-27-2022 Lipase [Catalytic activity/Vol] 37 U/L Normal 12-95 [facility] Comment on above: Performed By: #### P GLU #### [facility] [address] [place] [address] Magnesiumon 11-27-2022 Magnesium [Mass/Vol] 1.9 mg/dL Normal 1.7-2.4 [facility] Comment on above: Performed By: #### P GLU #### [facility] [address] [place] [address] POCT Venouson 11-27-2022 Creatinine [Mass/Vol] 0.9 mg/dL Normal 0.6-1.2 [facility] Comment on above: Performed By: #### L IPAS #### [facility] [address] [place] [address] GFR >60 Normal >60 [facility] Comment on above: Result Comment: Pedi atric [...] secretion. Performed By: #### L IPAS #### [facility] [address] [place] [address] POC Performed on SEE BELOW Normal [facility] Comment on above: Result Comment: Perf ormed on POC Performed By: #### L IPAS #### [facility] [address] [place] [address] POC Sample Type KIRA Normal [facility] Comment on above: Performed By: #### L IPAS #### [facility] [address] [place] [address] Urinalysis, reflex to cultur ryder 11-27-2022 Bilirubin Ql (U) Negative Normal Negative [facility] Comment on above: Performed By: #### P GLU #### [facility] [address] [place] [address] Clarity (U) Clear Normal Clear [facility] Comment on above: Performed By: #### P GLU #### [facility] [address] [place] [address] Color (U) Yellow Normal Straw/[place] [facility] Comment on above: Performed By: #### P GLU #### [facility] [address] [place] [address] Glucose Ql (U) Negative Normal Negative [facility] Comment on above: Performed By: #### P GLU #### [facility] [address] [place] [address] Hemoglobin Ql (U) Negative Normal Negative [facility] Comment on above: Performed By: #### P GLU #### [facility] [address] [place] [address] Ketones Ql (U) Negative Normal Negative [facility] Comment on above: Performed By: #### P GLU #### [facility] [address] [place] [address] Leukocyte esterase Test strip Ql (U) Negative Normal Negative [facility] Comment on above: Performed By: #### P GLU #### [facility] [address] [place] [address] Nitrite Ql (U) Negative Normal Negative [facility] Comment on above: Performed By: #### P GLU #### [facility] [address] [place] [address] pH (U) 7.5 [pH] Normal 5.0-9.0 [facility] Comment on above: Performed By: #### P GLU #### [facility] [address] [place] [address] Protein Ql (U) Negative Normal Negative [facility] Comment on above: Performed By: #### P GLU #### [facility] [address] [place] [address] Specific gravity (U) [Rel density] 1.026 Normal 1.005-1.03 [facility] Comment on above: Performed By: #### P GLU #### [facility] [address] [place] [address] Urine Reflexed to Culture Not Indicated Normal [facility] Comment on above: Performed By: #### P GLU #### [facility] [address] [place] [address] Urobilinogen Qn (U) 0.2 {Munir'U}/dL Normal < 2.0 [facility] Comment on above: Performed By: #### P GLU #### [facility] [address] [place] [address] CNNURSEon 11-26-2022 CNNURSE Normal [facility] US MESENTERIC ARTERY CMPLT V LABon 11-26-2022 US MESENTERIC ARTERY CMPLT VAS LAB Normal [facility] Ambulatory Visit Summaryon 1 Ambulatory Visit Summary Normal [address] [place] [address]- \.br\ Medications\.br\ What How Much When Why [...] hours as needed for Pain Pickup at [facility]pharmacy #[id number]\.br\ Pharmacy Information\.br\ [id number]: [address], [place] [phone]\.br\ Allergies\.br\ NSAIDs (Unknown)\.br\ codeine (unknown)\.br\ Problems\.br\ Ongoing [...] PCOS- polycystic ovary syndrome\.br\ \.br\ [facility] CNPNon 11-25-2022 [facility] Normal [facility] Family Medicine Office/Clini c Noteon 11-25-2022 Family Medicine Office/Clinic Note Normal [facility] Comment on above: Result Comment: Elec tronically Signed By: Jaquan Paula\.br\Date and Time Signed: 11/25/22 13:56 EDT Population Healthon 11-25-19 Population Health Normal [facility] Basic metabolic 2000 panelon 11-23-2022 Anion gap [Moles/Vol] 12 mmol/L Normal - [facility] Comment on above: Order Comment: Speci men Type: BLOOD SPECIMENOrdering Facility: [facility] Address: [place] [address] Performed By: #### 2 4321-2, 01440-9, 96616-5 ####[facility]ATORYCLIA [id number] [place] [address] [place] Calcium [Mass/Vol] 8.4 mg/dL Low 8.5-10.2 [facility] Comment on above: Order Comment: Speci men Type: BLOOD SPECIMENOrdering Facility: [facility] Address: [address] [place] [address] Performed By: #### 2 4321-2, 67755-0, ####[facility]ATORYCLIA [id number] [place] [address] [place] Chloride [Moles/Vol] 107 mmol/L High 97-105 [facility] Comment on above: Order Comment: Speci men Type: BLOOD SPECIMENOrdering Facility: [facility] Address: [address] [place] [address] Performed By: #### 2 4321-2, 64586-4, ####[facility]ATORYCLIA [id number] [place] [address] [place] CO2 [Moles/Vol] 19 mmol/L Low 22-30 [facility] Comment on above: Order Comment: Speci men Type: BLOOD SPECIMENOrdering Facility: [facility] Address: [address] [place] [address] Performed By: #### 2 4321-2, 57328-4, ####[facility] LABORATORYIA [id number] [place] [address] [place] Creatinine [Mass/Vol] 0.71 mg/dL Normal 0.58-0.96 [facility] Comment on above: Order Comment: Speci men Type: BLOOD SPECIMENOrdering Facility: [facility] Address: [address] [place] [address] Performed By: #### 2 4321-2, 98826-3, ####[facility]ATORYCLIA [id number] [place] [address] [place] Creatinine and Glomerular filtration rate.predicted panel (S/P/Bld) 115 mL/min/1.73m??? Normal >=60 [facility] Comment on above: Order Comment: Speci men Type: BLOOD SPECIMENOrdering Facility: [facility] Address: [address] [id number] Result Comment: Jessica mated Glomerular Filtration Rate [...] actual GFR. Performed By: #### 2 4321-2, 41614-5, ####[facility]ITALCLIA [id number] [place] [address] [place] Glucose [Mass/Vol] 105 mg/dL High 74-99 [facility]ital Comment on above: Order Comment: Geraldo marrero Type: BLOOD SPECIMENOrdering Facility: [facility] Address: [address] [place] [address] Result Comment: The [place] [employer] (ADA) provides guidance for cutoff [...] Standards of Medical Care in Diabetes 2016, [place] [employer]. Diabetes Care. 2016.39(Suppl 1). Performed By: #### 2 4321-2, 85450-3, ####[facility]ATORYCLIA [id number] [place] [address] [place] Potassium [Moles/Vol] 3.8 mmol/L Normal 3.7-5.1 [facility] Comment on above: Order Comment: Geraldo [facility] Type: BLOOD SPECIMENOrdering Facility: [facility] Address: [address] [id number] Performed By: #### 2 4321-2, 88366-8, ####[facility]ORATORYCLIA [id number] [place] [address] [place] Sodium [Moles/Vol] 138 mmol/L Normal 136-144 [facility]ital Comment on above: Order Comment: Speci men Type: BLOOD SPECIMENOrdering Facility: [facility] Address: [address] [place] [address] Performed By: #### 2 4321-2, 12709-6, ####[facility]ATORYCLIA [id number] [place] [address] [place] Urea nitrogen [Mass/Vol] 7 mg/dL Normal 7-21 [facility] Comment on above: Order Comment: Speci men Type: BLOOD SPECIMENOrdering Facility: [facility] Address: [address] [place] [address] Performed By: #### 2 4321-2, 93426-0, ####[facility]ORATORYCLIA [id number] [place] [address] [place] [facility] M[facility] CBC panel Auto (Bld)on 11-23 Erythrocyte distribution width (RBC) [Ratio] 13.6 % Normal 11.5-15.0 [facility] Comment on above: Order Comment: Speci men Type: BLOOD SPECIMENOrdering Facility: [facility] Address: [address] [id number] Performed By: #### 5 8410-2 ####[facility]ORATORYCLIA [id number] [place] [address] [place] Hematocrit (Bld) [Volume fraction] 36.4 % Normal 36.0-46.0 [facility] Comment on above: Order Comment: Speci men Type: BLOOD SPECIMENOrdering Facility: [facility] Address: [address] [place] [address] Performed By: #### 5 8410-2 ####[facility] [id number] [place] [address] [place] Hemoglobin (Bld) [Mass/Vol] 11.8 g/dL Normal 11.5-15.5 [facility] Comment on above: Order Comment: Speci men Type: BLOOD SPECIMENOrdering Facility: [facility] Address: [address] [place] [address] Performed By: #### 5 8410-2 ####[facility] [id number] [place] [address] [place] MCH (RBC) [Entitic mass] 30.4 pg Normal 26.0-34.0 [facility] Comment on above: Order Comment: Speci men Type: BLOOD SPECIMENOrdering Facility: [facility] Address: [address] [place] [address] Performed By: #### 5 8410-2 ####[facility] [id number] [place] [address] [place] MCHC (RBC) [Mass/Vol] 32.4 g/dL Normal 30.5-36.0 [facility] Comment on above: Order Comment: Speci men Type: BLOOD SPECIMENOrdering Facility: [facility] Address: [address] [place] [address] Performed By: #### 5 8410-2 ####[facility] [id number] [place] [address] [place] MCV (RBC) [Entitic vol] 93.8 fL Normal 80.0-100.0 [facility] Comment on above: Order Comment: Speci men Type: BLOOD SPECIMENOrdering Facility: [facility] Address: [address] [place] [address] Performed By: #### 5 8410-2 ####[facility] [id number] [address] [place] Nucleated RBC (Bld) [#/Vol] 10*3/uL Normal <0.01 [facility] Comment on above: Order Comment: Speci men Type: BLOOD SPECIMENOrdering Facility: [facility] Address: [address] [place] [address] Performed By: #### 5 8410-2 ####[facility]ORATORYIA [id number] [place] [address] [place] Platelet mean volume (Bld) [Entitic vol] 10.9 fL Normal 9.0-12.7 [facility] Comment on above: Order Comment: Speci men Type: BLOOD SPECIMENOrdering Facility: [facility] Address: [address] [place] [address] Performed By: #### 5 8410-2 ####[facility]ITALIA [id number] [place] [address] [place] Platelets (Bld) [#/Vol] 217 10*3/uL Normal 150-400 [facility] Comment on above: Order Comment: Speci men Type: BLOOD SPECIMENOrdering Facility: [facility] Address: [address] [place] [address] Performed By: #### 5 8410-2 ####[facility]ITALIA [id number] [place] [address] [place] RBC (Bld) [#/Vol] 3.88 10*6/uL Low 3.90-5.20 [facility] Comment on above: Order Comment: Speci men Type: BLOOD SPECIMENOrdering Facility: [facility] Address: [address] [place] [address] Performed By: #### 5 8410-2 ####[facility]ITALIA [id number] [place] [address] [place] WBC (Bld) [#/Vol] 3.45 10*3/uL Low 3.70-11.00 [facility] Comment on above: Order Comment: Speci men Type: BLOOD SPECIMENOrdering Facility: [facility] Address: [address] [place] [address] Performed By: #### 5 8410-2 ####[facility]ORATORYIA [id number] [place] [address] [place] CNDSon 11-23-2022 CNDS Normal [facility] CNPNon 11-23-2022 CNPN Normal [facility] CONSULTon 11-23-2022 CONSULT Normal [facility] Hepatic function 2000 panelo n 11-23-2022 Albumin [Mass/Vol] 3.5 g/dL Low 3.9-4.9 [facility]ital Comment on above: Order Comment: Speci men Type: BLOOD SPECIMENOrdering Facility: [facility] Address: [address] [place] [address] Performed By: #### 2 4321-2, 05376-1, ####[facility]ORATORYCLIA [id number] [place] [address] [place] ALP [Catalytic activity/Vol] 58 U/L Normal 34-123 [facility] Comment on above: Order Comment: Speci men Type: BLOOD SPECIMENOrdering Facility: [facility] Address: [address] [place] [address] Performed By: #### 2 4321-2, 82466-3, ####[facility]ORATORYCLIA [id number] [place] [address] [place] ALT [Catalytic activity/Vol] 17 U/L Normal 7-38 [facility] Comment on above: Order Comment: Speci men Type: BLOOD SPECIMENOrdering Facility: [facility] Address: [address] [place] [address] Performed By: #### 2 4321-2, 10062-7, ####[facility]ORATORYCLIA [id number] [place] [address] [place] AST [Catalytic activity/Vol] 34 U/L Normal 13-35 [facility] Comment on above: Order Comment: Speci men Type: BLOOD SPECIMENOrdering Facility: [facility] Address: [address] [place] [address] Performed By: #### 2 4321-2, 69722-6, ####[facility]ORATORYCLIA [id number] [place] [address] [place] Bilirubin [Mass/Vol] 0.4 mg/dL Normal 0.2-1.3 [facility] Comment on above: Order Comment: Speci men Type: BLOOD SPECIMENOrdering Facility: [facility] Address: [place] [address] Performed By: #### 2 4321-2, 27255-4, ####[facility]ATORYCLIA [id number] [place] [address] [place] Bilirubin.conjugate d [Mass/Vol] mg/dL Normal <0.2 [facility] Comment on above: Order Comment: Speci men Type: BLOOD SPECIMENOrdering Facility: [facility] Address: [address] [place] [address] Performed By: #### 2 4321-2, 12938-8, ####[facility]ITALIA [id number] [place] [id number] [place] Protein [Mass/Vol] 5.9 g/dL Low 6.3-8.0 [facility]ital Comment on above: Order Comment: Speci men Type: BLOOD SPECIMENOrdering Facility: [facility] Address: [address] [place] [address] Performed By: #### 2 4321-2, 68651-8, ####[facility]ITALIA [id number] [place] [address] [place] Magnesium SerPl-mCncon 11-23 Magnesium [Mass/Vol] 1.8 mg/dL Normal 1.7-2.3 [facility] Comment on above: Order Comment: Speci men Type: BLOOD SPECIMENOrdering Facility: [facility] Address: [address] [place] [address] Performed By: #### 2 4321-2, 89186-9, ####[facility]ITALIA [id number] [place] [address] [place] CBC W Auto Differential pane l (Bld)on 11-22-2022 Basophils (Bld) [#/Vol] 0.03 10*3/uL Normal <0.11 [facility] Comment on above: Order Comment: Speci men Type: BLOOD SPECIMENOrdering Facility: [facility] Address: [address] [place] [address] Performed By: #### 5 7021-8 ####[facility]ORATORYCLIA [id number] [place] [address] [place] Basophils/100 WBC (Bld) 0.6 % Normal [facility] Comment on above: Order Comment: Speci men Type: BLOOD SPECIMENOrdering Facility: [facility] Address: [address] [place] [address] Performed By: #### 5 7021-8 ####[facility]ATORYIA [id number] [place] [address] [place] Differential cell count method Nom (Bld) Auto Normal [facility] Comment on above: Order Comment: Speci men Type: BLOOD SPECIMENOrdering Facility: [facility] Address: [address] [place] [address] Performed By: #### 5 7021-8 ####[facility]ITALIA [id number] [place] [address] [place] Eosinophils (Bld) [#/Vol] 0.08 10*3/uL Normal <0.46 [facility] Comment on above: Order Comment: Speci men Type: BLOOD SPECIMENOrdering Facility: [facility] Address: [address] [place] [address] Performed By: #### 5 7021-8 ####[facility]ATORYCLIA [id number] [place] [address] [place] Eosinophils/100 WBC (Bld) 1.7 % Normal [facility] Comment on above: Order Comment: Speci men Type: BLOOD SPECIMENOrdering Facility: [facility] Address: [address] [place] [address] Performed By: #### 5 7021-8 ####[facility]ATORYCLIA [id number] [place] [address] [place] Erythrocyte distribution width (RBC) [Ratio] 13.4 % Normal 11.5-15.0 [facility] Comment on above: Order Comment: Speci men Type: BLOOD SPECIMENOrdering Facility: [facility] Address: [address] [place] [address] Performed By: #### 5 7021-8 ####[facility]ORATORYCLIA [id number] [place], [place] [address] [place] [address] [place] Hematocrit (Bld) [Volume fraction] 40.4 % Normal 36.0-46.0 [facility] Comment on above: Order Comment: Speci men Type: BLOOD SPECIMENOrdering Facility: [facility] Address: [address] [place] [address] Performed By: #### 5 7021-8 ####[facility]ITALIA [id number] [place] [address] [place] Hemoglobin (Bld) [Mass/Vol] 13.8 g/dL Normal 11.5-15.5 [facility] Comment on above: Order Comment: Speci men Type: BLOOD SPECIMENOrdering Facility: [facility] Address: [address] [place] [address] Performed By: #### 5 7021-8 ####[facility]IA [id number] [address] [place] Immature granulocytes (Bld) [#/Vol] 10*3/uL Normal <0.10 [facility] Comment on above: Order Comment: Speci men Type: BLOOD SPECIMENOrdering Facility: [facility] Address: [address] [place] [address] Performed By: #### 5 7021-8 ####[facility]ATORYIA [id number] [address] [place] Immature granulocytes/100 WBC (Bld) 0.2 % Normal [facility] Comment on above: Order Comment: Speci men Type: BLOOD SPECIMENOrdering Facility: [facility] Address: [address] [place] [address] Performed By: #### 5 7021-8 ####[facility]ATORYIA [id number] [place] [address] [place] Lymphocytes (Bld) [#/Vol] 2.01 10*3/uL Normal 1.00-4.00 [facility] Comment on above: Order Comment: Speci men Type: BLOOD SPECIMENOrdering Facility: [facility] Address: [address] [place] [address] Performed By: #### 5 7021-8 ####[facility]ATORYIA [id number] [place] [address] [place] Lymphocytes/100 WBC (Bld) 42.2 % Normal [facility] Comment on above: Order Comment: Speci men Type: BLOOD SPECIMENOrdering Facility: [facility] Address: [address] [place] [address] Performed By: #### 5 7021-8 ####[facility]ITALIA [id number] [place] [address] [place] MCH (RBC) [Entitic mass] 31.2 pg Normal 26.0-34.0 [facility] Comment on above: Order Comment: Speci men Type: BLOOD SPECIMENOrdering Facility: [facility] Address: [address] [place] [address] Performed By: #### 5 7021-8 ####[facility]IA [id number] [place] [address] [place] MCHC (RBC) [Mass/Vol] 34.2 g/dL Normal 30.5-36.0 [facility] Comment on above: Order Comment: Speci men Type: BLOOD SPECIMENOrdering Facility: [facility] Address: [address] [place] [address] Performed By: #### 5 7021-8 ####[facility]IA [id number] [place] [address] [place] MCV (RBC) [Entitic vol] 91.4 fL Normal 80.0-100.0 [facility] Comment on above: Order Comment: Speci men Type: BLOOD SPECIMENOrdering Facility: [facility] Address: [address] [place] [address] Performed By: #### 5 7021-8 ####[facility]ATORYCLIA [id number] [place] [address] [place] Monocytes (Bld) [#/Vol] 0.25 10*3/uL Normal <0.87 [facility] Comment on above: Order Comment: Speci men Type: BLOOD SPECIMENOrdering Facility: [facility] Address: [address] [place] [address] Performed By: #### 5 7021-8 ####[facility]ATORYCLIA [id number] [place] [id number] [place] Monocytes/100 WBC (Bld) 5.3 % Normal [facility] Comment on above: Order Comment: Speci men Type: BLOOD SPECIMENOrdering Facility: [facility] Address: [address] [place] [address] Performed By: #### 5 7021-8 ####[facility]IA [id number] [place] [address] [place] Neutrophils (Bld) [#/Vol] 2.38 10*3/uL Normal 1.45-7.50 [facility] Comment on above: Order Comment: Speci men Type: BLOOD SPECIMENOrdering Facility: [facility] Address: [address] [place] [address] Performed By: #### 5 7021-8 ####[facility]ORYIA [id number] [place] [address] [place] Neutrophils/100 WBC (Bld) 50.0 % Normal [facility] Comment on above: Order Comment: Speci men Type: BLOOD SPECIMENOrdering Facility: [facility] Address: [address] [place] [address] Performed By: #### 5 7021-8 ####[facility]ORYIA [id number] [place] [address] [place] Nucleated RBC (Bld) [#/Vol] 10*3/uL Normal <0.01 [facility] Comment on above: Order Comment: Speci men Type: BLOOD SPECIMENOrdering Facility: [facility] Address: [address] [place] [address] Performed By: #### 5 7021-8 ####[facility]ATORYCLIA [id number] [place] [address] [place] Nucleated RBC/100 WBC (Bld) [Ratio] 0.0 /100 WBC Normal [facility] Comment on above: Order Comment: Speci men Type: BLOOD SPECIMENOrdering Facility: [facility] Address: [address] [place] [address] Performed By: #### 5 7021-8 ####[facility]ORYCLIA [id number] [place] [address] [place] Platelet mean volume (Bld) [Entitic vol] 11.1 fL Normal 9.0-12.7 [facility] Comment on above: Order Comment: Speci men Type: BLOOD SPECIMENOrdering Facility: [facility] Address: [address] [place] [address] Performed By: #### 5 7021-8 ####[facility]ORYIA [id number] [place] [address] [place] Platelets (Bld) [#/Vol] 282 10*3/uL Normal 150-400 [facility] Comment on above: Order Comment: Speci men Type: BLOOD SPECIMENOrdering Facility: [facility] Address: [address] [place] [address] Performed By: #### 5 7021-8 ####[facility]ATORYCLIA [id number] [place] [address] [place] RBC (Bld) [#/Vol] 4.42 10*6/uL Normal 3.90-5.20 [facility] Comment on above: Order Comment: Speci men Type: BLOOD SPECIMENOrdering Facility: [facility] Address: [address] [place] [address] Performed By: #### 5 7021-8 ####[facility]ORYCLIA [id number] [place] [address] [place] WBC (Bld) [#/Vol] 4.76 10*3/uL Normal 3.70-11.00 [facility] Comment on above: Order Comment: Speci men Type: BLOOD SPECIMENOrdering Facility: [facility] Address: [address] [place] [address] Performed By: #### 5 7021-8 ####[facility]ATORYCLIA [id number] [place] [address] [place] CT ABD/PEL W IVCONon 023 CT ABD/PEL W IVCON Normal [facility] Comprehensive metabolic 2000 panelon 11-22-2022 Albumin [Mass/Vol] 4.4 g/dL Normal 3.9-4.9 [facility] Comment on above: Order Comment: Speci men Type: BLOOD SPECIMENOrdering Facility: [facility] Address: [address] [place] [address] Performed By: #### 2 4323-8, 3039-3, ####[facility]ATORYCLIA [id number] [place] [address] [place] ALP [Catalytic activity/Vol] 73 U/L Normal 34-123 [facility] Comment on above: Order Comment: Speci men Type: BLOOD SPECIMENOrdering Facility: [facility] Address: [address] [place] [address] Performed By: #### 2 4323-8, 3, ####[facility]ORYCLIA [id number] [place] [address] [place] ALT [Catalytic activity/Vol] 21 U/L Normal 7-38 [facility] Comment on above: Order Comment: Speci men Type: BLOOD SPECIMENOrdering Facility: [facility] Address: [address] [place] [address] Performed By: #### 2 4323-8, 0-3, ####[facility]ATORYCLIA [id number] [place] [address] [place] Anion gap [Moles/Vol] 11 mmol/L Normal 9-18 [facility] Comment on above: Order Comment: Speci men Type: BLOOD SPECIMENOrdering Facility: [facility] Address: [address] [place] [address] Performed By: #### 2 4323-8, 3039-3, ####[facility]ATORYCLIA [id number] [place] [address] [place] AST [Catalytic activity/Vol] 39 U/L High 13-35 [facility] Comment on above: Order Comment: Speci men Type: BLOOD SPECIMENOrdering Facility: [facility] Address: [address] [place] [address] Performed By: #### 2 4323-8, 3, ####[facility]ATORYCLIA [id number] [place] [address] [place] Bilirubin [Mass/Vol] 0.3 mg/dL Normal 0.2-1.3 [facility] Comment on above: Order Comment: Speci men Type: BLOOD SPECIMENOrdering Facility: [facility] Address: [address] [place] [address] Performed By: #### 2 4323-8, 3, ####[facility]ATORYCLIA [id number] [place] [address] [place] Calcium [Mass/Vol] 8.7 mg/dL Normal 8.5-10.2 [facility] Comment on above: Order Comment: Speci men Type: BLOOD SPECIMENOrdering Facility: [facility] Address: [address] [place] [address] Performed By: #### 2 4323-8, 3, ####[facility]ATORYCLIA [id number] [place] [address] [place] Chloride [Moles/Vol] 106 mmol/L High 97-105 [facility] Comment on above: Order Comment: Speci men Type: BLOOD SPECIMENOrdering Facility: [facility] Address: [address] [place] [address] Performed By: #### 2 4323-8, 3040-3, ####[facility]ORATORYCLIA [id number] [place] [address] [place] CO2 [Moles/Vol] 22 mmol/L Normal 22-30 [facility] Comment on above: Order Comment: Speci men Type: BLOOD SPECIMENOrdering Facility: [facility] Address: [address] [place] [place] [id number] Performed By: #### 2 4323-8, 3040-3, ####[facility]ATORYCLIA [id number] [place] [address] [place] Creatinine [Mass/Vol] 0.80 mg/dL Normal 0.58-0.96 [facility] Comment on above: Order Comment: Speci men Type: BLOOD SPECIMENOrdering Facility: [facility] Address: [address] [place] [id number] Performed By: #### 2 4323-8, 0-3, ####[facility]ITALIA [id number] [place] [address] [place] Creatinine and Glomerular filtration rate.predicted panel (S/P/Bld) 100 mL/min/1.73m??? Normal >=60 [facility] Comment on above: Order Comment: Speci men Type: BLOOD SPECIMENOrdering Facility: [facility] Address: [address] [id number] Result Comment: Jessica mated Glomerular Filtration Rate [...] GFR. Performed By: #### 2 4323-8, 3040-3, ####[facility]ORYCLIA [id number] [place] [address] [place] Glucose [Mass/Vol] 88 mg/dL Normal 74-99 [facility] Comment on above: Order Comment: Speci men Type: BLOOD SPECIMENOrdering Facility: [facility] Address: [address] [place] [address] Result Comment: The [place] [employer] (ADA) provides guidance for cutoff [...] Standards of Medical Care in Diabetes 2016, [place] [employer]. Diabetes Care. 2016.39(Suppl 1). Performed By: #### 2 4323-8, 3039-3, ####[facility]ATORYCLIA [id number] [place] [address] [place] Potassium [Moles/Vol] 3.9 mmol/L Normal 3.7-5.1 [facility] Comment on above: Order Comment: Geraldo marrero Type: BLOOD SPECIMENOrdering Facility: [facility] Address: [address] [place] [address] Performed By: #### 2 4323-8, 0-3, ####[facility]ATORYCLIA [id number] [place] [address] [place] Protein [Mass/Vol] 7.1 g/dL Normal 6.3-8.0 [facility]ital Comment on above: Order Comment: Geraldo men Type: BLOOD SPECIMENOrdering Facility: [facility] Address: [address] [place] [address] Performed By: #### 2 4323-8, 0-3, ####[facility]ATORYCLIA [id number] [place] [address] [place] Sodium [Moles/Vol] 139 mmol/L Normal 136-144 [facility] Comment on above: Order Comment: Speci men Type: BLOOD SPECIMENOrdering Facility: [facility] Address: [address] [place] [id number] Performed By: #### 2 4323-8, 0-3, ####[facility]ATORYCLIA [id number] [place] [address] [place] Urea nitrogen [Mass/Vol] 8 mg/dL Normal 7-21 [facility] Comment on above: Order Comment: Speci men Type: BLOOD SPECIMENOrdering Facility: [facility] Address: [place] [address] Performed By: #### 2 4323-8, 3, ####[facility]ATORYCLIA [id number] [place] [address] [place] ECG COMPLETEon 11-22-2022 ECG COMPLETE Normal [facility] ED NOTEon 11-22-2022 ED NOTE HNO ID: [id number] Author: Lady Garza RN Service: Emergency Medicine Author Type: Registered Nurse Type: ED Notes Filed: 11/22/2022 3:21 PM Note Text: Report to [facility] PRICE Normal [facility] ED PROV NOTEon 11-22-2022 ED PROV NOTE Normal [facility] HISTORY PHYSICALon HISTORY PHYSICAL Normal [facility] Lipase SerPl-cCncon 11-23-19 23 Lipase [Catalytic activity/Vol] 45 U/L Normal 16-61 [facility] Comment on above: Order Comment: Speci men Type: BLOOD SPECIMENOrdering Facility: [facility] Address: [place] [address] Performed By: #### 2 4323-8, 3, ####[facility]ATORYCLIA [id number] [place] [address] [place] Magnesium SerPl-mCncon 11-22 Magnesium [Mass/Vol] 1.9 mg/dL Normal 1.7-2.3 [facility] Comment on above: Order Comment: Speci men Type: BLOOD SPECIMENOrdering Facility: [facility] Address: [address] [place] [address] Performed By: #### 2 4323-8, 3040-3, 58525-2 ####[facility]ITALIA [id number] [place] [address] [place] NURSING PROGon 11-22-2022 NURSING PROG Normal [facility] Urinalysis complete panel (U )on 11-22-2022 Bilirubin Ql (U) Negative Normal Negative [facility] pital Comment on above: Order Comment: Speci men Type: URINE SPECIMENOrdering Facility: [facility] Address: [address] [place] [address] Performed By: #### 2 4356-8 ####[facility] [id number] [place] [address] [place] Clarity (Unsp spec) Clear Normal Clear [facility] Comment on above: Order Comment: Speci men Type: URINE SPECIMENOrdering Facility: [facility] Address: [address] [place] [address] Performed By: #### 2 4356-8 ####[facility] [id number] [place] [address] [place] Color (U) Light Yellow Normal yellow [facility] Comment on above: Order Comment: Speci men Type: URINE SPECIMENOrdering Facility: [facility] Address: [address] [place] [address] Performed By: #### 2 4356-8 ####[facility]ITALIA [id number] [place] [address] [place] Epithelial cells LM.HPF (Urine sed) [#/Area] Few Normal [facility] Comment on above: Order Comment: Speci men Type: URINE SPECIMENOrdering Facility: [facility] Address: [address] [place] [address] Performed By: #### 2 4356-8 ####[facility] [id number] [place] [address] [place] Glucose Test strip (U) [Mass/Vol] Negative Normal Trace, Negative [facility] Comment on above: Order Comment: Speci men Type: URINE SPECIMENOrdering Facility: [facility] Address: [address] [place] [address] Performed By: #### 2 4356-8 ####[facility]ATORYIA [id number] [place] [address] [place] Hemoglobin Ql (U) Negative Normal Negative, Trace [facility] Comment on above: Order Comment: Speci men Type: URINE SPECIMENOrdering Facility: [facility] Address: [address] [place] [address] Performed By: #### 2 4356-8 ####[facility]ITALIA [id number] [place] [address] [place] Ketones Ql (U) Negative Normal Negative, Trace [facility] Comment on above: Order Comment: Speci men Type: URINE SPECIMENOrdering Facility: [facility] Address: [address] [place] [address] Performed By: #### 2 4356-8 ####[facility]ORATORYIA [id number] [place], [place] [id number] [place] [address] [place] Leukocyte esterase Test strip Ql (U) Negative Normal Negative, 25 [place]/uL [facility] Comment on above: Order Comment: Speci men Type: URINE SPECIMENOrdering Facility: [facility] Address: [address] [place] [address] Performed By: #### 2 4356-8 ####[facility]ORATORYIA [id number] [place] [address] [place] Nitrite Ql (U) Negative Normal Negative [facility] Comment on above: Order Comment: Speci men Type: URINE SPECIMENOrdering Facility: [facility] Address: [address] [place] [address] Performed By: #### 2 4356-8 ####[facility]ATORYIA [id number] [place] [address] [place] pH (U) 7.0 [pH] Normal 5.0-8.0 [facility] Comment on above: Order Comment: Speci men Type: URINE SPECIMENOrdering Facility: [facility] Address: [address] [place] [address] Performed By: #### 2 4356-8 ####[facility]PITALIA [id number] [place] [id number] [place] Protein (U) [Mass/Vol] Negative Normal Trace, Negative [facility] Comment on above: Order Comment: Speci men Type: URINE SPECIMENOrdering Facility: [facility] Address: [address] [place] [address] Performed By: #### 2 4356-8 ####[facility] [id number] [place] [address] [place] RBC LM.HPF (Urine sed) [#/Area] 0-3 /HPF Normal 0-3 /HPF [facility] Comment on above: Order Comment: Speci men Type: URINE SPECIMENOrdering Facility: [facility] Address: [address] [place] [address] Performed By: #### 2 4356-8 ####[facility] [id number] [address] [place] Specific gravity (U) [Rel density] 1.020 Normal 1.005-1.030 [facility] Comment on above: Order Comment: Speci men Type: URINE SPECIMENOrdering Facility: [facility] Address: [address] [place] [address] Performed By: #### 2 4356-8 ####[facility]PITALIA [id number] [place] [id number] [place] Urobilinogen Ql (U) Normal Normal Negative [facility] Comment on above: Order Comment: Speci men Type: URINE SPECIMENOrdering Facility: [facility] Address: [address] [place] [address] Performed By: #### 2 4356-8 ####[facility] [id number] [place] [address] [place] WBC LM.HPF (Urine sed) [#/Area] 0-5 /HPF Normal 0-5 /HPF [facility] Comment on above: Order Comment: Speci men Type: URINE SPECIMENOrdering Facility: [facility] Address: [address] [place] [address] Performed By: #### 2 4356-8 ####[facility]ORATORYCLIA [id number] [place] [address] [place] XR CHEST 2V FRONTAL/LATon XR CHEST 2V FRONTAL/LAT Normal [facility] CNPNon 11-20-2022 CNPN Normal [facility] Basic metabolic 2000 panelon 11-19-2022 Anion gap [Moles/Vol] 11 mmol/L Normal 9-18 [facility] Comment on above: Order Comment: Speci men Type: BLOOD SPECIMENOrdering Facility: [facility] Address: [address] [place] [address] Performed By: #### 1 9123-9, 81972-4, 2776-02 ####[facility]ATORYCLIA [id number] [place] [address] [place] Calcium [Mass/Vol] 8.9 mg/dL Normal 8.5-10.2 [facility] Comment on above: Order Comment: Speci men Type: BLOOD SPECIMENOrdering Facility: [facility] Address: [address] [place] [address] Performed By: #### 1 9123-9, 17955-3, 2776- ####[facility]ATORYCLIA [id number] [place] [id number] [place] Chloride [Moles/Vol] 104 mmol/L Normal 97-105 [facility] Comment on above: Order Comment: Speci men Type: BLOOD SPECIMENOrdering Facility: [facility] Address: [address] [place] [address] Performed By: #### 1 9123-9, 84030-1, 2776- ####[facility]ATORYCLIA [id number] [place] [address] [place] CO2 [Moles/Vol] 25 mmol/L Normal 22-30 [facility] Comment on above: Order Comment: Speci men Type: BLOOD SPECIMENOrdering Facility: [facility] Address: [address] [place] [address] Performed By: #### 1 9123-9, 38081-7, 2776- ####[facility]ATORYCLIA [id number] [place] [id number] [place] [facility] Creatinine [Mass/Vol] 0.82 mg/dL Normal 0.58-0.96 [facility] Comment on above: Order Comment: Speci men Type: BLOOD SPECIMENOrdering Facility: [facility] Address: [address] [place] [address] Performed By: #### 1 9123-9, 99510-4, 2776-02 ####[facility]ATORYCLIA [id number] [address] Creatinine and Glomerular filtration rate.predicted panel (S/P/Bld) 97 mL/min/1.73m??? Normal >=60 [facility] Comment on above: Order Comment: Speci men Type: BLOOD SPECIMENOrdering Facility: [facility] Address: [place] [address] Result Comment: Jessica mated Glomerular Filtration Rate [...] actual GFR. Performed By: #### 1 9123-9, 83760-3, 2776-02 ####[facility]ORATORYCLIA [id number] [place] [id number] [place] Glucose [Mass/Vol] 80 mg/dL Normal 74-99 [facility] Comment on above: Order Comment: Speci men Type: BLOOD SPECIMENOrdering Facility: [facility] Address: [address] [place] [address] Result Comment: The [place] [employer] (ADA) provides guidance for cutoff [...] Standards of Medical Care in Diabetes 2016, [place] [employer]. Diabetes Care. 2016.39(Suppl 1). Performed By: #### 1 9123-9, 58105-5, 2776-02 ####[facility]ORATORYCLIA [id number] [place] [address] [place] Potassium [Moles/Vol] 4.2 mmol/L Normal 3.7-5.1 [facility] Comment on above: Order Comment: Speci men Type: BLOOD SPECIMENOrdering Facility: [facility] Address: [address] [place] [address] Performed By: #### 1 9123-9, , 2776-02 ####[facility]ATORYCLIA [id number] [place] [address] [place] Sodium [Moles/Vol] 140 mmol/L Normal 136-144 [facility] Comment on above: Order Comment: Speci men Type: BLOOD SPECIMENOrdering Facility: [facility] Address: [address] [place] [address] Performed By: #### 1 9123-9, , 2776-02 ####[facility]ATORYCLIA [id number] [place] [id number] [place] Urea nitrogen [Mass/Vol] 6 mg/dL Low 7-21 [facility] Comment on above: Order Comment: Speci men Type: BLOOD SPECIMENOrdering Facility: [facility] Address: [address] [place] [address] Performed By: #### 1 9123-9, 77990-5, 2777-1 ####[facility]ORATORYCLIA [id number] [place] [id number] [place] CBC panel Auto (Bld)on 11-19 Erythrocyte distribution width (RBC) [Ratio] 13.2 % Normal 11.5-15.0 [facility] Comment on above: Order Comment: Speci men Type: BLOOD SPECIMENOrdering Facility: [facility] Address: [address] [place] [address] Performed By: #### 5 8410-2 ####[facility] LABORATORYCLIA [id number] [address] [place] Hematocrit (Bld) [Volume fraction] 36.3 % Normal 36.0-46.0 [facility] Comment on above: Order Comment: Speci men Type: BLOOD SPECIMENOrdering Facility: [facility] Address: [address] [place] [address] Performed By: #### 5 8410-2 ####[facility] LABORATORYCLIA [id number] [address] Hemoglobin (Bld) [Mass/Vol] 12.4 g/dL Normal 11.5-15.5 [facility] Comment on above: Order Comment: Speci men Type: BLOOD SPECIMENOrdering Facility: [facility] Address: [address] [place] [address] Performed By: #### 5 8410-2 ####[facility] LABORATORYCLIA [id number] [address] [place] MCH (RBC) [Entitic mass] 30.4 pg Normal 26.0-34.0 [facility] Comment on above: Order Comment: Speci men Type: BLOOD SPECIMENOrdering Facility: [facility] Address: [address] [place] [address] Performed By: #### 5 8410-2 ####[facility] LABORATORYCLIA [id number] [address] [place] MCHC (RBC) [Mass/Vol] 34.2 g/dL Normal 30.5-36.0 [facility] Comment on above: Order Comment: Speci men Type: BLOOD SPECIMENOrdering Facility: [facility] Address: [address] [place] [address] Performed By: #### 5 8410-2 ####[facility]ORATORYCLIA [id number] [place] [id number] [place] MCV (RBC) [Entitic vol] 89.0 fL Normal 80.0-100.0 [facility] Comment on above: Order Comment: Speci men Type: BLOOD SPECIMENOrdering Facility: [facility] Address: [address] [place] [address] Performed By: #### 5 8410-2 ####[facility]ORATORYCLIA [id number] [place] [address] [place] Nucleated RBC (Bld) [#/Vol] 10*3/uL Normal <0.01 [facility] Comment on above: Order Comment: Speci men Type: BLOOD SPECIMENOrdering Facility: [facility] Address: [address] [place] [address] Performed By: #### 5 8410-2 ####[facility] LABORATORYCLIA [id number] [place] [address] [place] Platelet mean volume (Bld) [Entitic vol] 11.3 fL Normal 9.0-12.7 [facility] Comment on above: Order Comment: Speci men Type: BLOOD SPECIMENOrdering Facility: [facility] Address: [address] [place] [address] Performed By: #### 5 8410-2 ####[facility] LABORATORYCLIA [id number] [place] [id number] [place] Platelets (Bld) [#/Vol] 239 10*3/uL Normal 150-400 [facility] Comment on above: Order Comment: Speci men Type: BLOOD SPECIMENOrdering Facility: [facility] Address: [address] [place] [address] Performed By: #### 5 8410-2 ####[facility] LABORATORYCLIA [id number] [place] [address] [place] RBC (Bld) [#/Vol] 4.08 10*6/uL Normal 3.90-5.20 [facility] Comment on above: Order Comment: Speci men Type: BLOOD SPECIMENOrdering Facility: [facility] Address: [place] [address] Performed By: #### 5 8410-2 ####[facility]ATORYCLIA [id number] [place] [id number] [place] WBC (Bld) [#/Vol] 2.99 10*3/uL Low 3.70-11.00 [facility] Comment on above: Order Comment: Speci men Type: BLOOD SPECIMENOrdering Facility: [facility] Address: [place] [address] Performed By: #### 5 8410-2 ####[facility]ORATORYCLIA [id number] [place] [address] [place] CNDSon 11-19-2022 CNDS Normal [facility]-19 Magnesium [Mass/Vol] 1.9 mg/dL Normal 1.7-2.3 [facility] Comment on above: Order Comment: Speci men Type: BLOOD SPECIMENOrdering Facility: [facility] Address: [place] [address] Performed By: #### 1 9123-9, 88165-0, 2777-1 ####[facility]ATORYCLIA [id number] [place] [id number] [place] NURSING PROGon 11-19-2022 NURSING PROG Normal [facility] Phosphate SerPl-mCncon 11-19 Phosphate [Mass/Vol] 4.1 mg/dL Normal 2.7-4.8 [facility] Comment on above: Order Comment: Speci men Type: BLOOD SPECIMENOrdering Facility: [facility] Address: [place] [address] Performed By: #### 1 9123-9, 52389-6, 2777-1 ####[facility]ATORYCLIA [id number] [place] [id number] [place] Basic metabolic 2000 panelon 11-18-2022 Anion gap [Moles/Vol] 10 mmol/L Normal 9-18 [facility] Comment on above: Order Comment: Speci men Type: BLOOD SPECIMENOrdering Facility: [facility] Address: [address] [place] [address] Performed By: #### 2 4321-2 ####[facility] LABORATORYCLIA [id number] [place] [address] [place] Calcium [Mass/Vol] 8.8 mg/dL Normal 8.5-10.2 [facility] Comment on above: Order Comment: Speci men Type: BLOOD SPECIMENOrdering Facility: [facility] Address: [address] [place] [address] Performed By: #### 2 4321-2 ####[facility] LABORATORYCLIA [id number] [place] [address] [place] Chloride [Moles/Vol] 105 mmol/L Normal 97-105 [facility] Comment on above: Order Comment: Speci men Type: BLOOD SPECIMENOrdering Facility: [facility] Address: [address] [place] [address] Performed By: #### 2 4321-2 ####[facility]ORATORYCLIA [id number] [place] [address] [place] CO2 [Moles/Vol] 22 mmol/L Normal 22-30 [facility] Comment on above: Order Comment: Speci men Type: BLOOD SPECIMENOrdering Facility: [facility] Address: [address] [place] [address] Performed By: #### 2 4321-2 ####[facility] LABORATORYCLIA [id number] [place] [address] [place] Creatinine [Mass/Vol] 0.61 mg/dL Normal 0.58-0.96 [facility] Comment on above: Order Comment: Speci men Type: BLOOD SPECIMENOrdering Facility: [facility] Address: [address] [place] [address] Performed By: #### 2 4321-2 ####[facility] LABORATORYCLIA [id number] [place] [address] [place] Creatinine and Glomerular filtration rate.predicted panel (S/P/Bld) 121 mL/min/1.73m??? Normal >=60 [facility] Comment on above: Order Comment: Geraldo marrero Type: BLOOD SPECIMENOrdering Facility: [facility] Address: [address] [place] [id number] Result Comment: Jessica mated Glomerular Filtration Rate [...] actual GFR. Performed By: #### 2 4321-2 ####[facility] LABORATORYCLIA [id number] [place] [address] [place] Glucose [Mass/Vol] 115 mg/dL High 74-99 [facility] Comment on above: Order Comment: Geraldo marrero Type: BLOOD SPECIMENOrdering Facility: [facility] Address: [address] Result Comment: The [place] Diabetes [employer] (ADA) provides guidance for cutoff [...] Standards of Medical Care in Diabetes 2016, [place] [employer]. Diabetes Care. 2016.39(Suppl 1). Performed By: #### 2 4321-2 ####[facility] LABORATORYCLIA [id number] [place] [id number] [place] Potassium [Moles/Vol] 4.2 mmol/L Normal 3.7-5.1 [facility] Comment on above: Order Comment: Geraldo marrero Type: BLOOD SPECIMENOrdering Facility: [facility] Address: [address] [place] [address] Performed By: #### 2 4321-2 ####[facility] LABORATORYCLIA [id number] [place] [id number] [place] Sodium [Moles/Vol] 137 mmol/L Normal 136-144 [facility] Comment on above: Order Comment: Speci men Type: BLOOD SPECIMENOrdering Facility: [facility] Address: [address] [place] [address] Performed By: #### 2 4321-2 ####[facility]ORATORYCLIA [id number] [address] [place] Urea nitrogen [Mass/Vol] 6 mg/dL Low 7-21 [facility] Comment on above: Order Comment: Speci men Type: BLOOD SPECIMENOrdering Facility: [facility] Address: [address] [place] [address] Performed By: #### 2 4321-2 ####[facility]ORATORYCLIA [id number] [address] [place] CASE MGT INIT ASSESon 2022 CASE MGT INIT ASS Normal [facility] CBC panel Auto (Bld)on 11-18 Erythrocyte distribution width (RBC) [Ratio] 13.0 % Normal 11.5-15.0 [facility] Comment on above: Order Comment: Speci men Type: BLOOD SPECIMENOrdering Facility: [facility] Address: [address] [place] [address] Performed By: #### 5 8410-2 ####[facility]ORATORYCLIA [id number] [address] [place] Hematocrit (Bld) [Volume fraction] 35.7 % Low 36.0-46.0 [facility] Comment on above: Order Comment: Speci men Type: BLOOD SPECIMENOrdering Facility: [facility] Address: [address] [place] [address] Performed By: #### 5 8410-2 ####[facility] LABORATORYCLIA [id number] [address] Hemoglobin (Bld) [Mass/Vol] 12.3 g/dL Normal 11.5-15.5 [facility] Comment on above: Order Comment: Speci men Type: BLOOD SPECIMENOrdering Facility: [facility] Address: [address] [place] [address] Performed By: #### 5 8410-2 ####[facility]ORATORYCLIA [id number] [address] [place] MCH (RBC) [Entitic mass] 31.1 pg Normal 26.0-34.0 [facility] Comment on above: Order Comment: Speci men Type: BLOOD SPECIMENOrdering Facility: [facility] Address: [address] [place] [address] Performed By: #### 5 8410-2 ####[facility]ORATORYCLIA [id number] [address] MCHC (RBC) [Mass/Vol] 34.5 g/dL Normal 30.5-36.0 [facility] Comment on above: Order Comment: Speci men Type: BLOOD SPECIMENOrdering Facility: [facility] Address: [address] [place] [address] Performed By: #### 5 8410-2 ####[facility] LABORATORYCLIA [id number] [address] [place] [facility] MCV (RBC) [Entitic vol] 90.2 fL Normal 80.0-100.0 [facility] Comment on above: Order Comment: Speci men Type: BLOOD SPECIMENOrdering Facility: [facility] Address: [address] [place] [address] Performed By: #### 5 8410-2 ####[facility] LABORATORYCLIA [id number] [address] Nucleated RBC (Bld) [#/Vol] 10*3/uL Normal <0.01 [facility] Comment on above: Order Comment: Speci men Type: BLOOD SPECIMENOrdering Facility: [facility] Address: [address] [place] [address] Performed By: #### 5 8410-2 ####[facility] LABORATORYCLIA [id number] [place] [id number] [place] Platelet mean volume (Bld) [Entitic vol] 11.2 fL Normal 9.0-12.7 [facility] Comment on above: Order Comment: Speci men Type: BLOOD SPECIMENOrdering Facility: [facility] Address: [address] [place] [address] Performed By: #### 5 8410-2 ####[facility]ORATORYCLIA [id number] [place] [id number] [place] Platelets (Bld) [#/Vol] 214 10*3/uL Normal 150-400 [facility] Comment on above: Order Comment: Speci men Type: BLOOD SPECIMENOrdering Facility: [facility] Address: [address] [place] [address] Performed By: #### 5 8410-2 ####[facility] LABORATORYCLIA [id number] [place] [address] [place] RBC (Bld) [#/Vol] 3.96 10*6/uL Normal 3.90-5.20 [facility] Comment on above: Order Comment: Speci men Type: BLOOD SPECIMENOrdering Facility: [facility] Address: [address] [place] [address] Performed By: #### 5 8410-2 ####[facility] LABORATORYCLIA [id number] [place] [address] [place] WBC (Bld) [#/Vol] 3.48 10*3/uL Low 3.70-11.00 [facility] Comment on above: Order Comment: Speci men Type: BLOOD SPECIMENOrdering Facility: [facility] Address: [address] [place] [address] Performed By: #### 5 8410-2 ####[facility] LABORATORYCLIA [id number] [place] [id number] [facility] [place] NURSING PROGon 11-18-2022 NURSING PROG Normal [facility] Urinalysis complete panel (U )on 11-18-2022 Bacteria LM.HPF (Urine sed) [#/Area] Rare Abnormal None Seen [facility] Comment on above: Order Comment: Speci men Type: URINE SPECIMENOrdering Facility: [facility] Address: [address] [place] [address] Performed By: #### 2 4356-8 ####[facility] LABORATORYCLIA [id number] [place] [address] [place] Bilirubin Ql (U) Negative Normal Negative [facility] Comment on above: Order Comment: Speci men Type: URINE SPECIMENOrdering Facility: [facility] Address: [address] [place] [address] Performed By: #### 2 6-8 ####[facility] LABORATORYCLIA [id number] [address] [place] Clarity (Unsp spec) Clear Normal Clear [facility] Comment on above: Order Comment: Speci men Type: URINE SPECIMENOrdering Facility: [facility] Address: [address] [place] [address] Performed By: #### 2 4356-8 ####[facility]ORATORYCLIA [id number] [address] [place] Color (U) Colorless Normal Yellow [facility] Comment on above: Order Comment: Speci men Type: URINE SPECIMENOrdering Facility: [facility] Address: [address] [place] [address] Performed By: #### 2 6-8 ####[facility]ORATORYCLIA [id number] [address] [place] Epithelial cells LM.HPF (Urine sed) [#/Area] Few Normal [facility] Comment on above: Order Comment: Speci men Type: URINE SPECIMENOrdering Facility: [facility] Address: [address] [place] [address] Performed By: #### 2 4356-8 ####[facility]ORATORYCLIA [id number] [address] [place] Glucose Test strip (U) [Mass/Vol] Negative Normal Trace, Negative [facility] Comment on above: Order Comment: Speci men Type: URINE SPECIMENOrdering Facility: [facility] Address: [address] [address] Performed By: #### 2 4356-8 ####[facility] LABORATORYCLIA [id number] [place] [address] [place] Hemoglobin Ql (U) Negative Normal Negative, Trace Fa [facility] Comment on above: Order Comment: Speci men Type: URINE SPECIMENOrdering Facility: [facility] Address: [address] [place] [address] Performed By: #### 2 4356-8 ####[facility]ORATORYCLIA [id number] [place] [address] [place] Ketones Ql (U) Negative Normal Negative, Trace [facility] Comment on above: Order Comment: Speci men Type: URINE SPECIMENOrdering Facility: [facility] Address: [address] [place] [address] Performed By: #### 2 4356-8 ####[facility]ATORYCLIA [id number] [address] [place] Leukocyte esterase Test strip Ql (U) Negative Normal Negative, 25 Patito/uL [facility] Comment on above: Order Comment: Speci men Type: URINE SPECIMENOrdering Facility: [facility] Address: [address] [place] [address] Performed By: #### 2 4356-8 ####[facility]ORATORYCLIA [id number] [place] [address] [place] Nitrite Ql (U) Negative Normal Negative [facility] Comment on above: Order Comment: Speci men Type: URINE SPECIMENOrdering Facility: [facility] Address: [address] [place] [address] Performed By: #### 2 4356-8 ####[facility]ORATORYCLIA [id number] [address] [place] pH (U) 7.5 [pH] Normal 5.0-8.0 [facility] Comment on above: Order Comment: Speci men Type: URINE SPECIMENOrdering Facility: [facility] Address: [address] [place] [address] Performed By: #### 2 4356-8 ####[facility] LABORATORYCLIA [id number] [address] Protein (U) [Mass/Vol] Negative Normal Trace, Negative [facility] Comment on above: Order Comment: Speci men Type: URINE SPECIMENOrdering Facility: [facility] Address: [address] [place] [address] Performed By: #### 2 4356-8 ####[facility] LABORATORYCLIA [id number] [place] [address] [place] RBC LM.HPF (Urine sed) [#/Area] 0-3 /HPF Normal 0-3 /HPF [facility] Comment on above: Order Comment: Speci men Type: URINE SPECIMENOrdering Facility: [facility] Address: [address] [place] [address] Performed By: #### 2 4356-8 ####[facility] LABORATORYCLIA [id number] [address] [place] Specific gravity (U) [Rel density] 1.007 Normal 1.005-1.030 [facility] Comment on above: Order Comment: Speci men Type: URINE SPECIMENOrdering Facility: [facility] Address: [address] [place] [address] Performed By: #### 2 4356-8 ####[facility] LABORATORYCLIA [id number] [address] [place] Urobilinogen Ql (U) Negative Normal Negative [facility] Comment on above: Order Comment: Speci men Type: URINE SPECIMENOrdering Facility: [facility] Address: [address] [place] [address] Performed By: #### 2 4356-8 ####[facility] LABORATORYCLIA [id number] [place] [address] [place] WBC LM.HPF (Urine sed) [#/Area] 0-5 /HPF Normal 0-5 /HPF [facility] Comment on above: Order Comment: Speci men Type: URINE SPECIMENOrdering Facility: [facility] Address: [address] [place] [address] Performed By: #### 2 4356-8 ####[facility]ORATORYCLIA [id number] [place] [address] [place] Bilirubin Ql (U) Negative Normal Negative [facility] Comment on above: Order Comment: Speci men Type: URINE SPECIMENOrdering Facility: [facility] Address: [address] [place] [address] Performed By: #### 2 4356-8 ####[facility] LABORATORYCLIA [id number] [place] [address] [place] Clarity (Unsp spec) Clear Normal Clear [facility] Comment on above: Order Comment: Speci men Type: URINE SPECIMENOrdering Facility: [facility] Address: [address] [place] [address] Performed By: #### 2 4356-8 ####[facility] LABORATORYCLIA [id number] [place] [address] [place] Color (U) Colorless Normal Yellow [facility] Comment on above: Order Comment: Speci men Type: URINE SPECIMENOrdering Facility: [facility] Address: [address] [place] [address] Performed By: #### 2 4356-8 ####[facility]ORATORYCLIA [id number] [place] [address] [place] Epithelial cells LM.HPF (Urine sed) [#/Area] Few Normal [facility] Comment on above: Order Comment: Speci men Type: URINE SPECIMENOrdering Facility: [facility] Address: [address] [place] [address] Performed By: #### 2 4356-8 ####[facility]ORATORYCLIA [id number] [place] [address] [place] Glucose Test strip (U) [Mass/Vol] Negative Normal Trace, Negative [facility] Comment on above: Order Comment: Speci men Type: URINE SPECIMENOrdering Facility: [facility] Address: [address] [address] Performed By: #### 2 4356-8 ####[facility] LABORATORYCLIA [id number] [place] [address] [place] Hemoglobin Ql (U) Negative Normal Negative, Trace Fa [facility] Comment on above: Order Comment: Speci men Type: URINE SPECIMENOrdering Facility: [facility] Address: [address] [place] [address] Performed By: #### 2 4356-8 ####[facility] LABORATORYCLIA [id number] [place] [address] [place] Ketones Ql (U) Negative Normal Negative, Trace [facility] Comment on above: Order Comment: Speci men Type: URINE SPECIMENOrdering Facility: [facility] Address: [address] [place] [address] Performed By: #### 2 4356-8 ####[facility] LABORATORYCLIA [id number] [address] [place] Leukocyte esterase Test strip Ql (U) Negative Normal Negative, 25 Patito/uL [facility] Comment on above: Order Comment: Speci men Type: URINE SPECIMENOrdering Facility: [facility] Address: [address] [place] [address] Performed By: #### 2 4356-8 ####[facility] LABORATORYCLIA [id number] [address] [place] Nitrite Ql (U) Negative Normal Negative [facility] Comment on above: Order Comment: Speci men Type: URINE SPECIMENOrdering Facility: [facility] Address: [address] [place] [address] Performed By: #### 2 4356-8 ####[facility]ORATORYCLIA [id number] [address] [place] pH (U) 7.5 [pH] Normal 5.0-8.0 [facility] Comment on above: Order Comment: Speci men Type: URINE SPECIMENOrdering Facility: [facility] Address: [address] [place] [address] Performed By: #### 2 4356-8 ####[facility]ORATORYCLIA [id number] [place] [address] [place] Protein (U) [Mass/Vol] Negative Normal Trace, Negative [facility] Comment on above: Order Comment: Speci men Type: URINE SPECIMENOrdering Facility: [facility] Address: [address] [place] [address] Performed By: #### 2 4356-8 ####[facility]ORATORYCLIA [id number] [place] [address] [place] RBC LM.HPF (Urine sed) [#/Area] 0-3 /HPF Normal 0-3 /HPF [facility] Comment on above: Order Comment: Speci men Type: URINE SPECIMENOrdering Facility: [facility] Address: [address] [place] [address] Performed By: #### 2 4356-8 ####[facility]ORATORYCLIA [id number] [address] [place] Specific gravity (U) [Rel density] 1.006 Normal 1.005-1.030 [facility] Comment on above: Order Comment: Speci men Type: URINE SPECIMENOrdering Facility: [facility] Address: [address] [place] [address] Performed By: #### 2 4356-8 ####[facility]ORATORYCLIA [id number] [address] [place] Urobilinogen Ql (U) Negative Normal Negative [facility] Comment on above: Order Comment: Speci men Type: URINE SPECIMENOrdering Facility: [facility] Address: [address] [place] [address] Performed By: #### 2 4356-8 ####[facility]ORATORYCLIA [id number] [address] [place] WBC LM.HPF (Urine sed) [#/Area] 0-5 /HPF Normal 0-5 /HPF [facility] Comment on above: Order Comment: Speci men Type: URINE SPECIMENOrdering Facility: [facility] Address: [address] [address] Performed By: #### 2 4356-8 ####[facility] LABORATORYCLIA [id number] [place] [address] [place] ALLIED HEALTHon 11-17-2022 ALLIED HEALTH Normal [facility] CBC W Auto Differential pane l (Bld)on 11-17-2022 Basophils (Bld) [#/Vol] 0.03 10*3/uL Normal <0.11 [facility] Comment on above: Order Comment: Speci men Type: BLOOD SPECIMENOrdering Facility: [facility] Address: [address] [address] Performed By: #### 5 7021-8 ####[facility] LABORATORYCLIA [id number] [place] [address] [place] Basophils/100 WBC (Bld) 0.7 % Normal [facility] Comment on above: Order Comment: Speci men Type: BLOOD SPECIMENOrdering Facility: [facility] Address: [address] [place] [address] Performed By: #### 5 7021-8 ####[facility] LABORATORYCLIA [id number] [place] [address] [place] Differential cell count method Nom (Bld) Auto Normal [facility] Comment on above: Order Comment: Speci men Type: BLOOD SPECIMENOrdering Facility: [facility] Address: [address] [address] Performed By: #### 5 7021-8 ####[facility] LABORATORYCLIA [id number] [place] [address] [place] Eosinophils (Bld) [#/Vol] 0.07 10*3/uL Normal <0.46 [facility] Comment on above: Order Comment: Speci men Type: BLOOD SPECIMENOrdering Facility: [facility] Address: [address] [address] Performed By: #### 5 7021-8 ####[facility] LABORATORYCLIA [id number] [place] [address] [place] Eosinophils/100 WBC (Bld) 1.7 % Normal [facility] Comment on above: Order Comment: Speci men Type: BLOOD SPECIMENOrdering Facility: [facility] Address: [address] [address] Performed By: #### 5 7021-8 ####[facility] LABORATORYCLIA [id number] [address] [place] Erythrocyte distribution width (RBC) [Ratio] 13.2 % Normal 11.5-15.0 [facility] Comment on above: Order Comment: Speci men Type: BLOOD SPECIMENOrdering Facility: [facility] Address: [address] [place] [address] Performed By: #### 5 7021-8 ####[facility] LABORATORYCLIA [id number] [place] [address] [place] Hematocrit (Bld) [Volume fraction] 37.2 % Normal 36.0-46.0 [facility] Comment on above: Order Comment: Speci men Type: BLOOD SPECIMENOrdering Facility: [facility] Address: [address] [place] [address] Performed By: #### 5 7021-8 ####[facility] LABORATORYCLIA [id number] [place] [address] [place] Hemoglobin (Bld) [Mass/Vol] 12.9 g/dL Normal 11.5-15.5 [facility] Comment on above: Order Comment: Speci men Type: BLOOD SPECIMENOrdering Facility: [facility] Address: [address] [address] Performed By: #### 5 7021-8 ####[facility] LABORATORYCLIA [id number] [place] [address] [place] Immature granulocytes (Bld) [#/Vol] 10*3/uL Normal <0.10 [facility] Comment on above: Order Comment: Speci men Type: BLOOD SPECIMENOrdering Facility: [facility] Address: [address] [place] [address] Performed By: #### 5 7021-8 ####[facility] LABORATORYCLIA [id number] [address] STATES [facility] Immature granulocytes/100 WBC (Bld) 0.2 % Normal [facility] Comment on above: Order Comment: Speci men Type: BLOOD SPECIMENOrdering Facility: [facility] Address: [address] [place] [address] Performed By: #### 5 7021-8 ####[facility] LABORATORYCLIA [id number] [place] [address] [place] Lymphocytes (Bld) [#/Vol] 1.81 10*3/uL Normal 1.00-4.00 [facility] Comment on above: Order Comment: Speci men Type: BLOOD SPECIMENOrdering Facility: [facility] Address: [address] [place] [address] Performed By: #### 5 7021-8 ####[facility] LABORATORYCLIA [id number] [address] Lymphocytes/100 WBC (Bld) 44.6 % Normal [facility] Comment on above: Order Comment: Speci men Type: BLOOD SPECIMENOrdering Facility: [facility] Address: [address] [place] [address] Performed By: #### 5 7021-8 ####[facility] LABORATORYCLIA [id number] [place] [address] [place] MCH (RBC) [Entitic mass] 31.1 pg Normal 26.0-34.0 [facility] Comment on above: Order Comment: Speci men Type: BLOOD SPECIMENOrdering Facility: [facility] Address: [address] [place] [address] Performed By: #### 5 7021-8 ####[facility] LABORATORYCLIA [id number] [address] [place] MCHC (RBC) [Mass/Vol] 34.7 g/dL Normal 30.5-36.0 [facility] Comment on above: Order Comment: Speci men Type: BLOOD SPECIMENOrdering Facility: [facility] Address: [address] [place] [address] Performed By: #### 5 7021-8 ####[facility] LABORATORYCLIA [id number] [place] [id number] [place] MCV (RBC) [Entitic vol] 89.6 fL Normal 80.0-100.0 [facility] Comment on above: Order Comment: Speci men Type: BLOOD SPECIMENOrdering Facility: [facility] Address: [address] [place] [address] Performed By: #### 5 7021-8 ####[facility] LABORATORYCLIA [id number] [place] [address] [place] Monocytes (Bld) [#/Vol] 0.21 10*3/uL Normal <0.87 [facility] Comment on above: Order Comment: Speci men Type: BLOOD SPECIMENOrdering Facility: [facility] Address: [address] [place] [address] Performed By: #### 5 7021-8 ####[facility] LABORATORYCLIA [id number] [address] [place] Monocytes/100 WBC (Bld) 5.2 % Normal [facility] Comment on above: Order Comment: Speci men Type: BLOOD SPECIMENOrdering Facility: [facility] Address: [address] [place] [address] Performed By: #### 5 7021-8 ####[facility] LABORATORYCLIA [id number] [place] [address] [place] Neutrophils (Bld) [#/Vol] 1.93 10*3/uL Normal 1.45-7.50 [facility] Comment on above: Order Comment: Speci men Type: BLOOD SPECIMENOrdering Facility: [facility] Address: [address] [place] [address] Performed By: #### 5 7021-8 ####[facility] LABORATORYCLIA [id number] [address] [place] Neutrophils/100 WBC (Bld) 47.6 % Normal [facility] Comment on above: Order Comment: Speci men Type: BLOOD SPECIMENOrdering Facility: [facility] Address: [address] [address] Performed By: #### 5 7021-8 ####[facility] LABORATORYCLIA [id number] [place] [id number] [place] Nucleated RBC (Bld) [#/Vol] 10*3/uL Normal <0.01 [facility] Comment on above: Order Comment: Speci men Type: BLOOD SPECIMENOrdering Facility: [facility] Address: [address] [address] Performed By: #### 5 7021-8 ####[facility] LABORATORYCLIA [id number] [place] [id number] [place] Nucleated RBC/100 WBC (Bld) [Ratio] 0.0 /100 WBC Normal [facility] Comment on above: Order Comment: Speci men Type: BLOOD SPECIMENOrdering Facility: [facility] Address: [address] [address] Performed By: #### 5 7021-8 ####[facility] LABORATORYCLIA [id number] [place] [address] [place] Platelet mean volume (Bld) [Entitic vol] 11.9 fL Normal 9.0-12.7 [facility] Comment on above: Order Comment: Speci men Type: BLOOD SPECIMENOrdering Facility: [facility] Address: [address] [address] Performed By: #### 5 7021-8 ####[facility] LABORATORYCLIA [id number] [place] [id number] [place] Platelets (Bld) [#/Vol] 85 10*3/uL Low 150-400 [facility] Comment on above: Order Comment: Speci men Type: BLOOD SPECIMENOrdering Facility: [facility] Address: [address] [place] [address] Result Comment: Resu lts may be inaccurate due to the presence of microclots. Performed By: #### 5 7021-8 ####[facility] LABORATORYCLIA [id number] [place] [id number] [place] RBC (Bld) [#/Vol] 4.15 10*6/uL Normal 3.90-5.20 [facility] Comment on above: Order Comment: Speci men Type: BLOOD SPECIMENOrdering Facility: [facility] Address: [address] [address] Performed By: #### 5 7021-8 ####[facility] LABORATORYCLIA [id number] [place] [id number] [place] WBC (Bld) [#/Vol] 4.06 10*3/uL Normal 3.70-11.00 [facility] Comment on above: Order Comment: Speci men Type: BLOOD SPECIMENOrdering Facility: [facility] Address: [address] [place] [address] Result Comment: Resu lts may be inaccurate due to the presence of microclots. Performed By: #### 5 7021-8 ####[facility] LABORATORYCLIA [id number] [address] STATES OF [facility] CONSULTon 11-17-2022 CONSULT Normal [facility] CT ABD/PEL W IVCONon 023 CT ABD/PEL W IVCON Normal [facility] Comprehensive metabolic 2000 panelon 11-17-2022 Albumin [Mass/Vol] 4.2 g/dL Normal 3.9-4.9 [facility] Comment on above: Order Comment: Speci men Type: BLOOD SPECIMENOrdering Facility: [facility] Address: [address] [address] Performed By: #### 3 040-3, 94453-2 ####[facility] LABORATORYCLIA [id number] [place] [address] [place] ALP [Catalytic activity/Vol] 69 U/L Normal 34-123 [facility] Comment on above: Order Comment: Speci men Type: BLOOD SPECIMENOrdering Facility: [facility] Address: [address] [place] [address] Performed By: #### 3 040-3, 12365-6 ####[facility] LABORATORYCLIA [id number] [place] [address] [place] ALT [Catalytic activity/Vol] 22 U/L Normal 7-38 [facility] Comment on above: Order Comment: Speci men Type: BLOOD SPECIMENOrdering Facility: [facility] Address: [address] [address] Performed By: #### 3 040-3, ####[facility] LABORATORYCLIA [id number] [place] [id number] [place] Anion gap [Moles/Vol] 9 mmol/L Normal 9-18 [facility] Comment on above: Order Comment: Speci men Type: BLOOD SPECIMENOrdering Facility: [facility] Address: [address] [address] Performed By: #### 3 -3, ####[facility] LABORATORYCLIA [id number] [place] [address] [place] AST [Catalytic activity/Vol] 40 U/L High 13-35 [facility] Comment on above: Order Comment: Speci men Type: BLOOD SPECIMENOrdering Facility: [facility] Address: [address] [address] Performed By: #### 3 -3, ####[facility] LABORATORYCLIA [id number] [place] [address] [place] Bilirubin [Mass/Vol] 0.4 mg/dL Normal 0.2-1.3 [facility] Comment on above: Order Comment: Speci men Type: BLOOD SPECIMENOrdering Facility: [facility] Address: [address] [address] Performed By: #### 3 -3, ####[facility] LABORATORYCLIA [id number] [place] [id number] [place] Calcium [Mass/Vol] 8.8 mg/dL Normal 8.5-10.2 [facility] Comment on above: Order Comment: Speci men Type: BLOOD SPECIMENOrdering Facility: [facility] Address: [address] [address] Performed By: #### 3 -3, 97744-6 ####[facility] LABORATORYCLIA [id number] [address] [place] Chloride [Moles/Vol] 107 mmol/L High 97-105 [facility] Comment on above: Order Comment: Speci men Type: BLOOD SPECIMENOrdering Facility: [facility] Address: [address] [address] Performed By: #### 3 040-3, 11065-0 ####[facility] LABORATORYCLIA [id number] [place] [id number] [facility] CO2 [Moles/Vol] 23 mmol/L Normal 22-30 [facility] Comment on above: Order Comment: Speci men Type: BLOOD SPECIMENOrdering Facility: [facility] Address: [address] [place] [address] Performed By: #### 3 040-3, ####[facility] LABORATORYCLIA [id number] [address] Creatinine [Mass/Vol] 0.75 mg/dL Normal 0.58-0.96 [facility] Comment on above: Order Comment: Speci men Type: BLOOD SPECIMENOrdering Facility: [facility] Address: [address] [place] [address] Performed By: #### 3 040-3, ####[facility] LABORATORYCLIA [id number] [address] Creatinine and Glomerular filtration rate.predicted panel (S/P/Bld) 108 mL/min/1.73m??? Normal >=60 [facility] Comment on above: Order Comment: Speci men Type: BLOOD SPECIMENOrdering Facility: [facility] Address: [address] [place] [address] Result Comment: Jessica mated Glomerular Filtration Rate [...] reflect actual GFR. Performed By: #### 3 , ####[facility] LABORATORYCLIA [id number] [place] [id number] [place] Glucose [Mass/Vol] 80 mg/dL Normal 74-99 [facility] Comment on above: Order Comment: Speci men Type: BLOOD SPECIMENOrdering Facility: [facility] Address: [address] [place] [address] Result Comment: The [place] [employer] Association (ADA) provides guidance for cutoff [...] Standards of Medical Care in Diabetes 2016, [place] [employer]. Diabetes Care. 2016.39(Suppl 1). Performed By: #### 3 , ####[facility] LABORATORYCLIA [id number] [place] [id number] [place] Potassium [Moles/Vol] 4.3 mmol/L Normal 3.7-5.1 [facility] Comment on above: Order Comment: Speci men Type: BLOOD SPECIMENOrdering Facility: [facility] Address: [address] [address] Performed By: #### 3 -, ####[facility] LABORATORYCLIA [id number] [place] [id number] [place] Protein [Mass/Vol] 6.9 g/dL Normal 6.3-8.0 [facility] Comment on above: Order Comment: Speci men Type: BLOOD SPECIMENOrdering Facility: [facility] Address: [address] [place] [address] Performed By: #### 3 , ####[facility] LABORATORYCLIA [id number] [address] Sodium [Moles/Vol] 139 mmol/L Normal 136-144 [facility] Comment on above: Order Comment: Speci men Type: BLOOD SPECIMENOrdering Facility: [facility] Address: [address] [place] [address] Performed By: #### 3 040-3, 99322-9 ####[facility] LABORATORYCLIA [id number] [place] [id number] [place] [facility] Urea nitrogen [Mass/Vol] 8 mg/dL Normal 7-21 [facility] Comment on above: Order Comment: Speci men Type: BLOOD SPECIMENOrdering Facility: [facility] Address: [address] [place] [address] Performed By: #### 3 040-3, 23612-1 ####[facility] LABORATORYCLIA [id number] [address] ED NOTEon 11-17-2022 ED NOTE HNO ID: [id number] Author: Jayla Jean RN Service: ? Author Type: Registered Nurse Type: ED Notes Filed: 11/17/2022 2:00 PM Note Text: Pt sts symptoms she feels like she is going to pass out in WR. Vitals rechecked and DS done Normal [facility] ED PROV NOTEon 11-17-2022 ED PROV NOTE Normal [facility] ED PROV NOTE Normal [facility] ED Triage Noteon 11-17-2022 ED Triage Note Normal [facility] Lipase SerPl-cCncon 11-18-19 23 Lipase [Catalytic activity/Vol] 26 U/L Normal 16-61 [facility] Comment on above: Order Comment: Speci men Type: BLOOD SPECIMENOrdering Facility: [facility] Address: [address] Performed By: #### 3 040-3, 86919-0 ####[facility] LABORATORYCLIA [id number] [place] [id number] [facility] NURSING PROGon 11-17-2022 NURSING PROG Normal [facility] NURSING PROG Normal [facility] Ambulatory Visit Summaryon 1 Ambulatory Visit Summary Normal [facility] Family Medicine Office/Clini c Noteon 11-16-2022 Family Medicine Office/Clinic Note Normal [facility] Comment on above: Result Comment: Elec tronically Signed By: Jaquan Paula.rene\Date and Time Signed: 11/16/22 10:42 EDT Basic metabolic 2000 panelon 11-12-2022 Anion gap [Moles/Vol] 12 mmol/L Normal 9-18 [facility] Comment on above: Order Comment: Speci men Type: BLOOD SPECIMENOrdering Facility: [facility] Address: [address] [address] Performed By: #### 2 4321-2 ####[facility] LABORATORYCLIA [id number] [place] [address] [place] Calcium [Mass/Vol] 8.8 mg/dL Normal 8.5-10.2 [facility] Comment on above: Order Comment: Speci men Type: BLOOD SPECIMENOrdering Facility: [facility] Address: [address] [address] Performed By: #### 2 4321-2 ####[facility] LABORATORYCLIA [id number] [place] [address] [place] Chloride [Moles/Vol] 104 mmol/L Normal 97-105 [facility] Comment on above: Order Comment: Speci men Type: BLOOD SPECIMENOrdering Facility: [facility] Address: [address] [address] Performed By: #### 2 4321-2 ####[facility] LABORATORYCLIA [id number] [place] [id number] [place] CO2 [Moles/Vol] 20 mmol/L Low 22-30 [facility] Comment on above: Order Comment: Speci men Type: BLOOD SPECIMENOrdering Facility: [facility] Address: [address] [place] [address] Performed By: #### 2 4321-2 ####[facility] LABORATORYCLIA [id number] [place] [address] [place] Creatinine [Mass/Vol] 0.62 mg/dL Normal 0.58-0.96 [facility] Comment on above: Order Comment: Geraldo elida Type: BLOOD SPECIMENOrdering Facility: [facility] Address: [address] [place] [id number] Performed By: #### 2 4321-2 ####[facility] LABORATORYCLIA [id number] [place] [address] [place] Creatinine and Glomerular filtration rate.predicted panel (S/P/Bld) 121 mL/min/1.73m??? Normal >=60 [facility] Comment on above: Order Comment: Geraldo elida Type: BLOOD SPECIMENOrdering Facility: [facility] Address: [address] [place] [address] Result Comment: Jessica mated Glomerular Filtration Rate [...] actual GFR. Performed By: #### 2 4321-2 ####[facility] LABORATORYCLIA [id number] [place] [address] [place] Glucose [Mass/Vol] 102 mg/dL High 74-99 [facility] Comment on above: Order Comment: Lyssamichael marrero Type: BLOOD SPECIMENOrdering Facility: [facility] Address: [address] [place] [address] Result Comment: The [place] Diabetes Association (ADA) provides guidance for cutoff [...] Standards of Medical Care in Diabetes 2016, [place] [employer]. Diabetes Care. 2016.39(Suppl 1). Performed By: #### 2 4321-2 ####[facility] LABORATORYCLIA [id number] [place] [address] [place] Potassium [Moles/Vol] 4.2 mmol/L Normal 3.7-5.1 [facility] Comment on above: Order Comment: Speci men Type: BLOOD SPECIMENOrdering Facility: [facility] Address: [address] [place] [address] Performed By: #### 2 4321-2 ####[facility] LABORATORYCLIA [id number] [place] [address] [place] Sodium [Moles/Vol] 136 mmol/L Normal 136-144 [facility] Comment on above: Order Comment: Speci men Type: BLOOD SPECIMENOrdering Facility: [facility] Address: [address] [place] [address] Performed By: #### 2 4321-2 ####[facility] LABORATORYCLIA [id number] [place] [address] [place] Urea nitrogen [Mass/Vol] 8 mg/dL Normal 7-21 [facility] Comment on above: Order Comment: Speci men Type: BLOOD SPECIMENOrdering Facility: [facility] Address: [address] [place] [address] Performed By: #### 2 4321-2 ####[facility] LABORATORYCLIA [id number] [place] [address] [place] CBC W Auto Differential pane l (Bld)on 11-12-2022 Basophils (Bld) [#/Vol] 10*3/uL Normal <0.11 [facility] Comment on above: Order Comment: Speci men Type: BLOOD SPECIMENOrdering Facility: [facility] Address: [address] [place] [address] Performed By: #### 5 7021-8 ####[facility] LABORATORYCLIA [id number] [place] [address] [place] Basophils/100 WBC (Bld) 0.2 % Normal [facility] Comment on above: Order Comment: Speci men Type: BLOOD SPECIMENOrdering Facility: [facility] Address: [address] [place] [address] Performed By: #### 5 7021-8 ####[facility] LABORATORYCLIA [id number] [place] [address] [place] Differential cell count method Nom (Bld) Auto Normal [facility] Comment on above: Order Comment: Speci men Type: BLOOD SPECIMENOrdering Facility: [facility] Address: [address] [place] [address] Performed By: #### 5 7021-8 ####[facility] LABORATORYCLIA [id number] [place] [address] [place] Eosinophils (Bld) [#/Vol] 10*3/uL Normal <0.46 [facility] Comment on above: Order Comment: Speci men Type: BLOOD SPECIMENOrdering Facility: [facility] Address: [address] [place] [address] Performed By: #### 5 7021-8 ####[facility] LABORATORYCLIA [id number] [address] [place] Eosinophils/100 WBC (Bld) 0.0 % Normal [facility] Comment on above: Order Comment: Speci men Type: BLOOD SPECIMENOrdering Facility: [facility] Address: [address] [place] [address] Performed By: #### 5 7021-8 ####[facility] LABORATORYCLIA [id number] [place] [address] [place] Erythrocyte distribution width (RBC) [Ratio] 12.6 % Normal 11.5-15.0 [facility] Comment on above: Order Comment: Speci men Type: BLOOD SPECIMENOrdering Facility: [facility] Address: [address] [place] [address] Performed By: #### 5 7021-8 ####[facility] LABORATORYCLIA [id number] [place] [address] [place] Hematocrit (Bld) [Volume fraction] 36.9 % Normal 36.0-46.0 [facility] Comment on above: Order Comment: Speci men Type: BLOOD SPECIMENOrdering Facility: [facility] Address: [address] [address] Performed By: #### 5 7021-8 ####[facility] LABORATORYCLIA [id number] [address] [place] Hemoglobin (Bld) [Mass/Vol] 12.8 g/dL Normal 11.5-15.5 [facility] Comment on above: Order Comment: Speci men Type: BLOOD SPECIMENOrdering Facility: [facility] Address: [address] [address] Performed By: #### 5 7021-8 ####[facility] LABORATORYCLIA [id number] [address] Immature granulocytes (Bld) [#/Vol] 0.08 10*3/uL Normal <0.10 [facility] Comment on above: Order Comment: Speci men Type: BLOOD SPECIMENOrdering Facility: [facility] Address: [address] [address] Performed By: #### 5 7021-8 ####[facility] LABORATORYCLIA [id number] [address] Immature granulocytes/100 WBC (Bld) 0.8 % Normal [facility] Comment on above: Order Comment: Speci men Type: BLOOD SPECIMENOrdering Facility: [facility] Address: [address] [address] Performed By: #### 5 7021-8 ####[facility] LABORATORYCLIA [id number] [place] [address] [place] Lymphocytes (Bld) [#/Vol] 1.23 10*3/uL Normal 1.00-4.00 [facility] Comment on above: Order Comment: Speci men Type: BLOOD SPECIMENOrdering Facility: [facility] Address: [address] [address] Performed By: #### 5 7021-8 ####[facility] LABORATORYCLIA [id number] [address] Lymphocytes/100 WBC (Bld) 12.8 % Normal [facility] Comment on above: Order Comment: Speci men Type: BLOOD SPECIMENOrdering Facility: [facility] Address: [address] [address] Performed By: #### 5 7021-8 ####[facility] LABORATORYCLIA [id number] [address] [place] [facility] MCH (RBC) [Entitic mass] 30.4 pg Normal 26.0-34.0 [facility] Comment on above: Order Comment: Speci men Type: BLOOD SPECIMENOrdering Facility: [facility] Address: [address] [address] Performed By: #### 5 7021-8 ####[facility] LABORATORYCLIA [id number] [address] [place] [facility] MCHC (RBC) [Mass/Vol] 34.7 g/dL Normal 30.5-36.0 [facility] Comment on above: Order Comment: Speci men Type: BLOOD SPECIMENOrdering Facility: [facility] Address: [address] [address] Performed By: #### 5 7021-8 ####[facility] LABORATORYCLIA [id number] [address] MCV (RBC) [Entitic vol] 87.6 fL Normal 80.0-100.0 [facility] Comment on above: Order Comment: Speci men Type: BLOOD SPECIMENOrdering Facility: [facility] Address: [address] [address] Performed By: #### 5 7021-8 ####[facility] LABORATORYCLIA [id number] [address] Monocytes (Bld) [#/Vol] 0.42 10*3/uL Normal <0.87 [facility] Comment on above: Order Comment: Speci men Type: BLOOD SPECIMENOrdering Facility: [facility] Address: [address] [address] Performed By: #### 5 7021-8 ####[facility] LABORATORYCLIA [id number] [place] [address] [place] Monocytes/100 WBC (Bld) 4.4 % Normal [facility] Comment on above: Order Comment: Speci men Type: BLOOD SPECIMENOrdering Facility: [facility] Address: [address] [address] Performed By: #### 5 7021-8 ####[facility] LABORATORYCLIA [id number] [place] [address] [place] Neutrophils (Bld) [#/Vol] 7.84 10*3/uL High 1.45-7.50 [facility] Comment on above: Order Comment: Speci men Type: BLOOD SPECIMENOrdering Facility: [facility] Address: [address] [place] [address] Performed By: #### 5 7021-8 ####[facility] LABORATORYCLIA [id number] [place] [address] [place] Neutrophils/100 WBC (Bld) 81.8 % Normal [facility] Comment on above: Order Comment: Speci men Type: BLOOD SPECIMENOrdering Facility: [facility] Address: [address] [place] [address] Performed By: #### 5 7021-8 ####[facility] LABORATORYCLIA [id number] [place] [address] [place] Nucleated RBC (Bld) [#/Vol] 10*3/uL Normal <0.01 [facility] Comment on above: Order Comment: Speci men Type: BLOOD SPECIMENOrdering Facility: [facility] Address: [address] [place] [address] Performed By: #### 5 7021-8 ####[facility] LABORATORYCLIA [id number] [place] [address] [place] Nucleated RBC/100 WBC (Bld) [Ratio] 0.0 /100 WBC Normal [facility] Comment on above: Order Comment: Speci men Type: BLOOD SPECIMENOrdering Facility: [facility] Address: [address] [place] [address] Performed By: #### 5 7021-8 ####[facility] LABORATORYCLIA [id number] [place] [id number] [place] Platelet mean volume (Bld) [Entitic vol] 11.3 fL Normal 9.0-12.7 [facility] Comment on above: Order Comment: Speci men Type: BLOOD SPECIMENOrdering Facility: [facility] Address: [address] [place] [address] Performed By: #### 5 7021-8 ####[facility] LABORATORYCLIA [id number] [place] [address] [place] Platelets (Bld) [#/Vol] 253 10*3/uL Normal 150-400 [facility] Comment on above: Order Comment: Speci men Type: BLOOD SPECIMENOrdering Facility: [facility] Address: [address] [place] [address] Performed By: #### 5 7021-8 ####[facility] LABORATORYCLIA [id number] [place] [address] [place] RBC (Bld) [#/Vol] 4.21 10*6/uL Normal 3.90-5.20 [facility] Comment on above: Order Comment: Speci men Type: BLOOD SPECIMENOrdering Facility: [facility] Address: [address] [place] [address] Performed By: #### 5 7021-8 ####[facility] LABORATORYCLIA [id number] [place] [address] [place] WBC (Bld) [#/Vol] 9.59 10*3/uL Normal 3.70-11.00 [facility] Comment on above: Order Comment: Speci men Type: BLOOD SPECIMENOrdering Facility: [facility] Address: [address] [place], [place] [address] Performed By: #### 5 7021-8 ####[facility] LABORATORYCLIA [id number] [place] [id number] [place] CNDSon 11-12-2022 CNDS Normal [facility] CNPNon 11-12-2022 CNPN Normal [facility] NURSING PROGon 11-12-2022 NURSING PROG Normal [facility] NUTRITIONon 11-12-2022 NUTRITION Normal [facility] ANES POSTPROC EVALon 023 ANES POSTPROC EVAL Normal [facility] ANES PRE-OPon 11-11-2022 ANES PRE-OP [facility] BRIEF OP NOTon 11-11-2022 BRIEF OP NOT [facility] ERCPon 11-11-2022 ERCP Normal [facility] NURSING PROGon 11-11-2022 NURSING PROG [facility] OPERATIVE NOon 11-11-2022 OPERATIVE NO [facility] PT EDon 11-11-2022 PT ED [facility] TYPE + SCREENon 11-11-2022 ABO O [facility] Comment on above: Order Comment: Speci men Type: BLOOD SPECIMENOrdering Facility: [facility] Address: [address] [place] [address] Performed By: #### T SCR ####[facility] BLOOD BANKCLIA [id number] [address] [place] [facility] HISTORICAL AB SCR STATUS Negative [facility] Comment on above: Order Comment: Speci men Type: BLOOD SPECIMENOrdering Facility: [facility] Address: [address] [place] [address] Performed By: #### T SCR ####[facility] BLOOD BANKCLIA [id number] [place] [address] [place] Rh Nom (Bld) Positive [facility] Comment on above: Order Comment: Speci men Type: BLOOD SPECIMENOrdering Facility: [facility] Address: [address] [place] [address] Performed By: #### T SCR ####[facility] BLOOD BANKCLIA [id number] [place] [address] [place] TYPE AND SCREEN EXPIRATION 11/14/2022 23:59 [facility] Comment on above: Order Comment: Speci men Type: BLOOD SPECIMENOrdering Facility: [facility] Address: [address] [place] [address] Performed By: #### T SCR ####[facility] BLOOD BANKIA [id number] [place] [address] [place] XR ERCP READ ONLYon 11-12-19 XR ERCP READ ONLY Normal [facility] CNCOon 11-10-2022 CNCO Letter Text Normal [facility] CNPNon 11-10-2022 CNPN Normal [facility] CNPNon 11-09-2022 CNPN Normal [facility] Population Healthon 11-10-19 Population Health Normal [facility] CNDSon 11-08-2022 CNDS Normal [facility] Basic metabolic 2000 panelon 11-06-2022 Anion gap [Moles/Vol] 8 mmol/L Low 9-18 [facility] Comment on above: Order Comment: Speci men Type: BLOOD SPECIMENOrdering Facility: [facility] Address: [address] [place] [address] Performed By: #### 2 4321-2 ####[facility] HOSPITALIA [id number] [place] [address] [place] Calcium [Mass/Vol] 8.6 mg/dL Normal 8.5-10.2 [facility] Comment on above: Order Comment: Speci men Type: BLOOD SPECIMENOrdering Facility: [facility] Address: [address] [place] [address] Performed By: #### 2 4321-2 ####[facility] HOSPITALIA [id number] [place] [address] [place] Chloride [Moles/Vol] 108 mmol/L High 97-105 [facility] Comment on above: Order Comment: Speci men Type: BLOOD SPECIMENOrdering Facility: [facility] Address: [address] [place] [address] Performed By: #### 2 4321-2 ####[facility] HOSPITALIA [id number] [place] [address] [place] CO2 [Moles/Vol] 24 mmol/L Normal 22-30 [facility] Comment on above: Order Comment: Speci men Type: BLOOD SPECIMENOrdering Facility: [facility] Address: [address] Performed By: #### 2 4321-2 ####[facility] LABORATORYIA [id number] [place] [id number] [place] [facility] Creatinine [Mass/Vol] 0.74 mg/dL Normal 0.58-0.96 [facility] Comment on above: Order Comment: Speci men Type: BLOOD SPECIMENOrdering Facility: [facility] Address: [address] [address] Performed By: #### 2 4321-2 ####[facility] LABORATORYIA [id number] [address] [place] [facility] Creatinine and Glomerular filtration rate.predicted panel (S/P/Bld) 110 mL/min/1.73m??? Normal >=60 [facility] Comment on above: Order Comment: Speci men Type: BLOOD SPECIMENOrdering Facility: [facility] Address: [address] [address] Result Comment: Jessica mated Glomerular Filtration Rate [...] actual GFR. Performed By: #### 2 4321-2 ####[facility] LABORATORYIA [id number] [address] [place] Glucose [Mass/Vol] 82 mg/dL Normal 74-99 [facility] Comment on above: Order Comment: Speci men Type: BLOOD SPECIMENOrdering Facility: [facility] Address: [address] [address] Result Comment: The [place] [employer] (ADA) provides guidance for cutoff [...] Standards of Medical Care in Diabetes 2016, [place] [employer]. Diabetes Care. 2016.39(Suppl 1). Performed By: #### 2 4321-2 ####[facility] LABORATORYIA [id number] [place] [address] [place] Potassium [Moles/Vol] 3.9 mmol/L Normal 3.7-5.1 [facility] Comment on above: Order Comment: Geraldo marrero Type: BLOOD SPECIMENOrdering Facility: [facility] Address: [address] [place] [address] Performed By: #### 2 4321-2 ####[facility]PITALIA [id number] [place] [address] [place] Sodium [Moles/Vol] 140 mmol/L Normal 136-144 [facility] Comment on above: Order Comment: Geraldo marrero Type: BLOOD SPECIMENOrdering Facility: [facility] Address: [address] [place] [address] Performed By: #### 2 4321-2 ####[facility]PITALIA [id number] [place] [address] [place] Urea nitrogen [Mass/Vol] 8 mg/dL Normal 7-21 [facility] Comment on above: Order Comment: Lyssai elida Type: BLOOD SPECIMENOrdering Facility: [facility] Address: [address] [address] Performed By: #### 2 4321-2 ####[facility]PITALIA [id number] [place] [address] [place] CASE MGT INIT ASSESon 2022 CASE MGT INIT ASSES Normal [facility] CBC panel Auto (Bld)on 11-06 Erythrocyte distribution width (RBC) [Ratio] 13.3 % Normal 11.5-15.0 [facility] Comment on above: Order Comment: Speci men Type: BLOOD SPECIMENOrdering Facility: [facility] Address: [address] [address] Performed By: #### 5 8410-2 ####[facility] LABORATORYCLIA [id number] [address] [place] Hematocrit (Bld) [Volume fraction] 34.5 % Low 36.0-46.0 [facility] Comment on above: Order Comment: Speci men Type: BLOOD SPECIMENOrdering Facility: [facility] Address: [address] [address] Performed By: #### 5 8410-2 ####[facility]ITALIA [id number] [address] [place] Hemoglobin (Bld) [Mass/Vol] 11.4 g/dL Low 11.5-15.5 [facility] Comment on above: Order Comment: Speci men Type: BLOOD SPECIMENOrdering Facility: [facility] Address: [address] [address] Performed By: #### 5 8410-2 ####[facility]ORATORYIA [id number] [address] [place] MCH (RBC) [Entitic mass] 30.8 pg Normal 26.0-34.0 [facility] Comment on above: Order Comment: Speci men Type: BLOOD SPECIMENOrdering Facility: [facility] Address: [address] [place] [address] Performed By: #### 5 8410-2 ####[facility]ATORYIA [id number] [address] [place] MCHC (RBC) [Mass/Vol] 33.0 g/dL Normal 30.5-36.0 [facility] Comment on above: Order Comment: Speci men Type: BLOOD SPECIMENOrdering Facility: [facility] Address: [address] [address] Performed By: #### 5 8410-2 ####[facility]PITALIA [id number] [place] [address] [place] MCV (RBC) [Entitic vol] 93.2 fL Normal 80.0-100.0 [facility] Comment on above: Order Comment: Speci men Type: BLOOD SPECIMENOrdering Facility: [facility] Address: [address] [address] Performed By: #### 5 8410-2 ####[facility]IA [id number] [address] [place] Nucleated RBC (Bld) [#/Vol] 10*3/uL Normal <0.01 [facility] Comment on above: Order Comment: Speci men Type: BLOOD SPECIMENOrdering Facility: [facility] Address: [address] [place] [address] Performed By: #### 5 8410-2 ####[facility] [id number] [place] [address] [place] Platelet mean volume (Bld) [Entitic vol] 11.3 fL Normal 9.0-12.7 [facility] Comment on above: Order Comment: Speci men Type: BLOOD SPECIMENOrdering Facility: [facility] Address: [address] [place] [address] Performed By: #### 5 8410-2 ####[facility]PITALIA [id number] [place] [address] [place] Platelets (Bld) [#/Vol] 225 10*3/uL Normal 150-400 [facility] Comment on above: Order Comment: Speci men Type: BLOOD SPECIMENOrdering Facility: [facility] Address: [address] [address] Performed By: #### 5 8410-2 ####[facility] [id number] [place] [address] [place] RBC (Bld) [#/Vol] 3.70 10*6/uL Low 3.90-5.20 [facility] Comment on above: Order Comment: Speci men Type: BLOOD SPECIMENOrdering Facility: [facility] Address: [address] [address] Performed By: #### 5 8410-2 ####[facility] [id number] [place] [address] [place] WBC (Bld) [#/Vol] 3.98 10*3/uL Normal 3.70-11.00 [facility] Comment on above: Order Comment: Speci men Type: BLOOD SPECIMENOrdering Facility: [facility] Address: [address] [address] Performed By: #### 5 8410-2 ####[facility] [id number] [place] [address] [place] CNPNon 11-06-2022 CNPN Normal [facility] CONSULT PROGon 11-06-2022 CONSULT PROG Normal [facility] l CONSULT PROG Normal [facility] l NM HEPATOBILIARY W EF AND/OR RXon 11-06-2022 NM HEPATOBILIARY W EF AND/OR RX Normal [facility] CBC W Auto Differential pane l (Bld)on 11-05-2022 Basophils (Bld) [#/Vol] 0.03 10*3/uL Normal <0.11 [facility] Comment on above: Order Comment: Speci men Type: BLOOD SPECIMENOrdering Facility: [facility] Address: [address] [address] Performed By: #### 5 7021-8 ####[facility] [id number] [place] [address] [place] Basophils/100 WBC (Bld) 0.6 % Normal [facility] Comment on above: Order Comment: Speci men Type: BLOOD SPECIMENOrdering Facility: [facility] Address: [address] [address] Performed By: #### 5 7021-8 ####[facility]ORY[facility] [id number] [place] [id number] [place] Differential cell count method Nom (Bld) Auto Normal [facility] Comment on above: Order Comment: Speci men Type: BLOOD SPECIMENOrdering Facility: [facility] Address: [address] [address] Performed By: #### 5 7021-8 ####[facility]ORYCLIA [id number] [place] [address] [place] Eosinophils (Bld) [#/Vol] 0.08 10*3/uL Normal <0.46 [facility] Comment on above: Order Comment: Speci men Type: BLOOD SPECIMENOrdering Facility: [facility] Address: [address] [address] Performed By: #### 5 7021-8 ####[facility] [id number] [place] [address] [place] Eosinophils/100 WBC (Bld) 1.5 % Normal [facility] Comment on above: Order Comment: Speci men Type: BLOOD SPECIMENOrdering Facility: [facility] Address: [address] [address] Performed By: #### 5 7021-8 ####[facility] [id number] [place] [address] [place] Erythrocyte distribution width (RBC) [Ratio] 13.3 % Normal 11.5-15.0 [facility] Comment on above: Order Comment: Speci men Type: BLOOD SPECIMENOrdering Facility: [facility] Address: [address] [address] Performed By: #### 5 7021-8 ####[facility]ATORYCLIA [id number] [address] [place] Hematocrit (Bld) [Volume fraction] 40.5 % Normal 36.0-46.0 [facility] Comment on above: Order Comment: Speci men Type: BLOOD SPECIMENOrdering Facility: [facility] Address: [address] [address] Performed By: #### 5 7021-8 ####[facility]ATORYCLIA [id number] [place] [address] [place] Hemoglobin (Bld) [Mass/Vol] 13.3 g/dL Normal 11.5-15.5 [facility] Comment on above: Order Comment: Speci men Type: BLOOD SPECIMENOrdering Facility: [facility] Address: [address] [address] Performed By: #### 5 7021-8 ####[facility]ATORYCLIA [id number] [place] [id number] [place] Immature granulocytes (Bld) [#/Vol] 10*3/uL Normal <0.10 [facility] Comment on above: Order Comment: Speci men Type: BLOOD SPECIMENOrdering Facility: [facility] Address: [address] [address] Performed By: #### 5 7021-8 ####[facility]ATORYCLIA [id number] [place] [address] [place] Immature granulocytes/100 WBC (Bld) 0.4 % Normal [facility] Comment on above: Order Comment: Speci men Type: BLOOD SPECIMENOrdering Facility: [facility] Address: [address] [place] [address] Performed By: #### 5 7021-8 ####[facility]ATORYCLIA [id number] [place] [address] [place] Lymphocytes (Bld) [#/Vol] 2.53 10*3/uL Normal 1.00-4.00 [facility] Comment on above: Order Comment: Speci men Type: BLOOD SPECIMENOrdering Facility: [facility] Address: [address] [address] Performed By: #### 5 7021-8 ####[facility]ATORYCLIA [id number] [place] [address] [place] Lymphocytes/100 WBC (Bld) 48.5 % Normal [facility] Comment on above: Order Comment: Speci men Type: BLOOD SPECIMENOrdering Facility: [facility] Address: [address] [address] Performed By: #### 5 7021-8 ####[facility]ORYIA [id number] [address] [place] [facility] MCH (RBC) [Entitic mass] 30.4 pg Normal 26.0-34.0 [facility] Comment on above: Order Comment: Speci men Type: BLOOD SPECIMENOrdering Facility: [facility] Address: [address] [place] [address] Performed By: #### 5 7021-8 ####[facility] [id number] [address] [place] MCHC (RBC) [Mass/Vol] 32.8 g/dL Normal 30.5-36.0 [facility] Comment on above: Order Comment: Speci men Type: BLOOD SPECIMENOrdering Facility: [facility] Address: [address] [address] Performed By: #### 5 7021-8 ####[facility] [id number] [address] [place] MCV (RBC) [Entitic vol] 92.7 fL Normal 80.0-100.0 [facility] Comment on above: Order Comment: Speci men Type: BLOOD SPECIMENOrdering Facility: [facility] Address: [address] [place] [address] Performed By: #### 5 7021-8 ####[facility] [id number] [address] [place] Monocytes (Bld) [#/Vol] 0.30 10*3/uL Normal <0.87 [facility] Comment on above: Order Comment: Speci men Type: BLOOD SPECIMENOrdering Facility: [facility] Address: [address] [place] [address] Performed By: #### 5 7021-8 ####[facility] [id number] [address] [place] Monocytes/100 WBC (Bld) 5.7 % Normal [facility] Comment on above: Order Comment: Speci men Type: BLOOD SPECIMENOrdering Facility: [facility] Address: [address] [address] Performed By: #### 5 7021-8 ####[facility]ATORYCLIA [id number] [place] [address] [place] Neutrophils (Bld) [#/Vol] 2.26 10*3/uL Normal 1.45-7.50 [facility] Comment on above: Order Comment: Speci men Type: BLOOD SPECIMENOrdering Facility: [facility] Address: [address] [address] Performed By: #### 5 7021-8 ####[facility] [id number] [place] [address] [place] Neutrophils/100 WBC (Bld) 43.3 % Normal [facility] Comment on above: Order Comment: Speci men Type: BLOOD SPECIMENOrdering Facility: [facility] Address: [address] [address] Performed By: #### 5 7021-8 ####[facility] [id number] [place] [address] [place] Nucleated RBC (Bld) [#/Vol] 10*3/uL Normal <0.01 [facility] Comment on above: Order Comment: Speci men Type: BLOOD SPECIMENOrdering Facility: [facility] Address: [address] [address] Performed By: #### 5 7021-8 ####[facility]ATORYCLIA [id number] [place] [address] [place] Nucleated RBC/100 WBC (Bld) [Ratio] 0.0 /100 WBC Normal [facility] Comment on above: Order Comment: Speci men Type: BLOOD SPECIMENOrdering Facility: [facility] Address: [address] [address] Performed By: #### 5 7021-8 ####[facility]ATORYCLIA [id number] [facility] [address] [place] Platelet mean volume (Bld) [Entitic vol] 11.4 fL Normal 9.0-12.7 [facility] Comment on above: Order Comment: Speci men Type: BLOOD SPECIMENOrdering Facility: [facility] Address: [address] [address] Performed By: #### 5 7021-8 ####[facility]ORYCLIA [id number] [place] [address] [place] Platelets (Bld) [#/Vol] 207 10*3/uL Normal 150-400 [facility] Comment on above: Order Comment: Speci men Type: BLOOD SPECIMENOrdering Facility: [facility] Address: [address] [address] Performed By: #### 5 7021-8 ####[facility] [id number] [place] [id number] [place] RBC (Bld) [#/Vol] 4.37 10*6/uL Normal 3.90-5.20 [facility] Comment on above: Order Comment: Speci men Type: BLOOD SPECIMENOrdering Facility: [facility] Address: [address] Performed By: #### 5 7021-8 ####[facility] [id number] [place] [address] [place] WBC (Bld) [#/Vol] 5.22 10*3/uL Normal 3.70-11.00 [facility] Comment on above: Order Comment: Speci men Type: BLOOD SPECIMENOrdering Facility: [facility] Address: [address] Performed By: #### 5 7021-8 ####[facility]ORYIA [id number] [place] [address] [place] CNPNon 11-05-2022 CNPN Normal [facility] CONSULTon 11-05-2022 CONSULT Normal [facility] CONSULT Normal [facility] Comprehensive metabolic 2000 panelon 11-05-2022 Albumin [Mass/Vol] 4.2 g/dL Normal 3.9-4.9 [facility] Comment on above: Order Comment: Speci men Type: BLOOD SPECIMENOrdering Facility: [facility] Address: [address] [address] Performed By: #### 2 4323-8, 3040-3 ####[facility]ATORYCLIA [id number] [place] [address] [place] ALP [Catalytic activity/Vol] 71 U/L Normal 34-123 [facility] Comment on above: Order Comment: Speci men Type: BLOOD SPECIMENOrdering Facility: [facility] Address: [address] [address] Performed By: #### 2 4323-8, 0-3 ####[facility]ORYCLIA [id number] [place] [address] [place] ALT [Catalytic activity/Vol] 15 U/L Normal 7-38 [facility] Comment on above: Order Comment: Speci men Type: BLOOD SPECIMENOrdering Facility: [facility] Address: [address] [address] Performed By: #### 2 4323-8, 0-3 ####[facility]IA [id number] [place] [address] [place] Anion gap [Moles/Vol] 12 mmol/L Normal 9-18 [facility] Comment on above: Order Comment: Speci men Type: BLOOD SPECIMENOrdering Facility: [facility] Address: [address] Performed By: #### 2 4323-8, 3040-3 ####[facility] [id number] [place] [address] [place] AST [Catalytic activity/Vol] 26 U/L Normal 13-35 [facility] Comment on above: Order Comment: Speci men Type: BLOOD SPECIMENOrdering Facility: [facility] Address: [address] Performed By: #### 2 4323-8, 3039-3 ####[facility]ORYCLIA [id number] [place] [address] [place] Bilirubin [Mass/Vol] 0.4 mg/dL Normal 0.2-1.3 [facility] Comment on above: Order Comment: Speci men Type: BLOOD SPECIMENOrdering Facility: [facility] Address: [address] [place] [address] Performed By: #### 2 432-8, 3039-3 ####[facility]PITALCLIA [id number] [place] [address] [place] Calcium [Mass/Vol] 8.6 mg/dL Normal 8.5-10.2 [facility] Comment on above: Order Comment: Speci men Type: BLOOD SPECIMENOrdering Facility: [facility] Address: [address] [place] [address] Performed By: #### 2 43238, 3 ####[facility] [id number] [place] [address] [place] Chloride [Moles/Vol] 107 mmol/L High 97-105 [facility] Comment on above: Order Comment: Speci men Type: BLOOD SPECIMENOrdering Facility: [facility] Address: [address] [place] [address] Performed By: #### 2 4323-8, 3 ####[facility]ORYCLIA [id number] [place] [address] [place] CO2 [Moles/Vol] 22 mmol/L Normal 22-30 [facility] Comment on above: Order Comment: Speci men Type: BLOOD SPECIMENOrdering Facility: [facility] Address: [address] [place] [address] Performed By: #### 2 4323-8, 3039-3 ####[facility] [id number] [place] [address] [place] Creatinine [Mass/Vol] 0.87 mg/dL Normal 0.58-0.96 [facility] Comment on above: Order Comment: Geraldo marrero Type: BLOOD SPECIMENOrdering Facility: [facility] Address: [address] [id number] Performed By: #### 2 4323-8, 3040-3 ####[facility]ATORYCLIA [id number] [place] [address] [place] Creatinine and Glomerular filtration rate.predicted panel (S/P/Bld) 90 mL/min/1.73m??? Normal >=60 [facility] Comment on above: Order Comment: Geraldo marrero Type: BLOOD SPECIMENOrdering Facility: [facility] Address: [address] Result Comment: Jessica mated Glomerular Filtration [...] GFR. Performed By: #### 2 4323-8, 3040-3 ####[facility]ORYCLIA [id number] [place] [address] [place] Glucose [Mass/Vol] 87 mg/dL Normal 74-99 [facility] Comment on above: Order Comment: Geraldo marrero Type: BLOOD SPECIMENOrdering Facility: [facility] Address: [address] [id number] Result Comment: The [place] [employer] (ADA) provides guidance for cutoff [...] Standards of Medical Care in Diabetes 2016, [place] [employer]. Diabetes Care. 2016.39(Suppl 1). Performed By: #### 2 4323-8, 0-3 ####[facility]IA [id number] [place] [address] [place] Potassium [Moles/Vol] 3.5 mmol/L Low 3.7-5.1 [facility] Comment on above: Order Comment: Speci men Type: BLOOD SPECIMENOrdering Facility: [facility] Address: [address] [address] Performed By: #### 2 4323-8, 3039-3 ####[facility] [id number] [place] [id number] [place] Protein [Mass/Vol] 6.6 g/dL Normal 6.3-8.0 [facility] Comment on above: Order Comment: Speci men Type: BLOOD SPECIMENOrdering Facility: [facility] Address: [address] [address] Performed By: #### 2 4323-8, 3039-3 ####[facility] [id number] [place] [address] [place] Sodium [Moles/Vol] 141 mmol/L Normal 136-144 [facility] Comment on above: Order Comment: Speci men Type: BLOOD SPECIMENOrdering Facility: [facility] Address: [address] [address] Performed By: #### 2 4323-8, 3039-3 ####[facility]ITALCLIA [id number] [place] [address] [place] Urea nitrogen [Mass/Vol] 9 mg/dL Normal 7-21 [facility] Comment on above: Order Comment: Speci men Type: BLOOD SPECIMENOrdering Facility: [facility] Address: [address] [address] Performed By: #### 2 4323-8, 0-3 ####[facility]ORYIA [id number] [place] [address] [place] ECG COMPLETEon 11-05-2022 ECG COMPLETE Normal [facility] l ED NOTEon 11-05-2022 ED NOTE HNO ID: [id number] Author: Joanne Mario RN Service: ? Author Type: Registered Nurse Type: ED Notes Filed: 11/05/2022 1:56 PM Note Text: Attempt to call report, Nurse taking patient is ROHIT. Will return call when nurse available. Normal [facility] ED NOTE HNO ID: [id number] Author: Joanne Mario RN Service: ? Author Type: Registered Nurse Type: ED Notes Filed: 11/05/2022 1:28 PM Note Text: Patient refused all daily meds but reglan due to nausea. [facility] ED PROV NOTEon 11-05-2022 ED PROV NOTE Normal [facility] HISTORY PHYSICALon HISTORY PHYSICAL Normal [facility] pital Lipase [facility] 11-06-19 Lipase [Catalytic activity/Vol] 38 U/L Normal 16-61 [facility] Comment on above: Order Comment: Speci men Type: BLOOD SPECIMENOrdering Facility: [facility] Address: [address] [place], [place] [id number] Performed By: #### 2 4323-8, 3040-3 ####[facility]ATORYCLIA [id number] [place] [address] [place] NURSING PROGon 11-05-2022 NURSING PROG Normal [facility] XR ABD 2V SUPINE W UPR/DECUB /CTLon 11-05-2022 XR ABD 2V SUPINE W UPR/DECUB/CTL [facility] 25(OH)D3 SerP-ncon 2022 25-hydroxyvitamin D3 [Mass/Vol] 29.0 ng/mL Low 31.0-80.0 [facility] Comment on above: Order Comment: Speci men Type: BLOOD SPECIMENOrdering Facility: [facility] Address: [address] [id number] Result Comment: Clas sification of 25 [place] Vitamin D status:Deficiency/Insufficiency: < or = 30 ng/ml.Sufficiency/Optimal Levels: 31-80 ng/mLToxicity: > 100 ng/mL.Test performed by chemiluminescent immunoassay. Performed By: #### 1 989-3 ####[facility]ITALIA [id number] [address] [place] Amylase SerPl-cCncon 023 Amylase [Catalytic activity/Vol] 40 U/L Normal 30-104 [facility] Comment on above: Order Comment: Speci men Type: BLOOD SPECIMENOrdering Facility: [facility] Address: [address] [place] [address] Performed By: #### 1 798-8, 2731-8, 2284-8, 2132-9 ####[facility] [id number] [address] [place] CBC panel Auto (Bld)on 11-04 Erythrocyte distribution width (RBC) [Ratio] 13.2 % Normal 11.5-15.0 [facility] Comment on above: Order Comment: Speci men Type: BLOOD SPECIMENOrdering Facility: [facility] Address: [address] [place] [address] Performed By: #### 5 8410-2 ####[facility] [id number] [address] [place] Hematocrit (Bld) [Volume fraction] 40.5 % Normal 36.0-46.0 [facility] Comment on above: Order Comment: Speci men Type: BLOOD SPECIMENOrdering Facility: [facility] Address: [address] [place] [address] Performed By: #### 5 8410-2 ####[facility] LABIA [id number] [address] [place] Hemoglobin (Bld) [Mass/Vol] 13.6 g/dL Normal 11.5-15.5 [facility] Comment on above: Order Comment: Speci men Type: BLOOD SPECIMENOrdering Facility: [facility] Address: [address] Performed By: #### 5 8410-2 ####[facility] [id number] [address] MCH (RBC) [Entitic mass] 30.7 pg Normal 26.0-34.0 [facility] Comment on above: Order Comment: Speci men Type: BLOOD SPECIMENOrdering Facility: [facility] Address: [address] [place], [place] [address] Performed By: #### 5 8410-2 ####[facility] [id number] [address] [place] [facility] MCHC (RBC) [Mass/Vol] 33.6 g/dL Normal 30.5-36.0 [facility] Comment on above: Order Comment: Speci men Type: BLOOD SPECIMENOrdering Facility: [facility] Address: [address] [place], [place] [address] Performed By: #### 5 8410-2 ####[facility] [id number] [address] [place] MCV (RBC) [Entitic vol] 91.4 fL Normal 80.0-100.0 [facility] Comment on above: Order Comment: Speci men Type: BLOOD SPECIMENOrdering Facility: [facility] Address: [address] [place], [place] [address] Performed By: #### 5 8410-2 ####[facility] [id number] [address] [place] [facility] Nucleated RBC (Bld) [#/Vol] 10*3/uL Normal <0.01 [facility] Comment on above: Order Comment: Speci men Type: BLOOD SPECIMENOrdering Facility: [facility] Address: [address] [place], [place] [address] Performed By: #### 5 8410-2 ####[facility] LABCLIA [id number] [place] [address] [place] Platelet mean volume (Bld) [Entitic vol] 12.1 fL Normal 9.0-12.7 [facility] Comment on above: Order Comment: Speci men Type: BLOOD SPECIMENOrdering Facility: [facility] Address: [address] [place], [place] [address] Performed By: #### 5 8410-2 ####[facility] LABIA [id number] [place] [address] [place] Platelets (Bld) [#/Vol] 313 10*3/uL Normal 150-400 [facility] Comment on above: Order Comment: Speci men Type: BLOOD SPECIMENOrdering Facility: [facility] Address: [address] [place] [address] Performed By: #### 5 8410-2 ####[facility] LABIA [id number] [place] [address] [place] RBC (Bld) [#/Vol] 4.43 10*6/uL Normal 3.90-5.[address] [facility] Comment on above: Order Comment: Speci men Type: BLOOD SPECIMENOrdering Facility: [facility] Address: [address] [place], [place] [address] Performed By: #### 5 8410-2 ####[facility] LABIA [id number] [place] [address] [place] WBC (Bld) [#/Vol] 6.69 10*3/uL Normal 3.70-11.[address] [facility] Comment on above: Order Comment: Speci men Type: BLOOD SPECIMENOrdering Facility: [facility] Address: [address] [place], [place] [address] Performed By: #### 5 8410-2 ####[facility] LABIA [id number] [place] [address] [place] CNCOon 11-04-2022 CNCO Letter Text Normal [facility] CNOVon 11-04-2022 CNOV Normal [facility] Comprehensive metabolic 2000 panelon 11-04-2022 Albumin [Mass/Vol] 4.3 g/dL Normal 3.9-4.9 [facility] Comment on above: Order Comment: Speci men Type: BLOOD SPECIMENOrdering Facility: [facility] Address: [address] [place], [place] [address] Performed By: #### 5 0190-8, 3040-3, 51632-8, 2276-4 ####[facility] LABCLIA [id number] [place] [address] [place] ALP [Catalytic activity/Vol] 69 U/L Normal 34-123 [facility] Comment on above: Order Comment: Speci men Type: BLOOD SPECIMENOrdering Facility: [facility] Address: [address] [place], [place] [address] Performed By: #### 5 0190-8, 3040-3, 98960-2, 6-4 ####[facility] LABIA [id number] [place] [address] [place] ALT [Catalytic activity/Vol] 16 U/L Normal 7-38 [facility] Comment on above: Order Comment: Speci men Type: BLOOD SPECIMENOrdering Facility: [facility] Address: [address] [place] [address] Performed By: #### 5 0190-8, 3040-3, 42473-3, 2276-4 ####[facility] [id number] [place] [address] [place] Anion gap [Moles/Vol] 13 mmol/L Normal 9-18 [facility] Comment on above: Order Comment: Speci men Type: BLOOD SPECIMENOrdering Facility: [facility] Address: [address] [place], [place] [id number] Performed By: #### 5 0190-8, 3040-3, 09251-6, 6-4 ####[facility] LABCLIA [id number] [place] [address] [place] AST [Catalytic activity/Vol] 25 U/L Normal 13-35 [facility] Comment on above: Order Comment: Speci men Type: BLOOD SPECIMENOrdering Facility: [facility] Address: [address] [place] [address] Performed By: #### 5 0190-8, 3040-3, 03229-8, 2275-4 ####[facility] LABIA [id number] [place] [address] [place] Bilirubin [Mass/Vol] 0.3 mg/dL Normal 0.2-1.3 [facility] Comment on above: Order Comment: Speci men Type: BLOOD SPECIMENOrdering Facility: [facility] Address: [address] [place] [address] Performed By: #### 5 0190-8, 3040-3, 38949-9, 2275-4 ####[facility] LABIA [id number] [place] [address] [place] Calcium [Mass/Vol] 9.1 mg/dL Normal 8.5-10.2 [facility] Comment on above: Order Comment: Speci men Type: BLOOD SPECIMENOrdering Facility: [facility] Address: [address] [place], [place] [id number] Performed By: #### 5 0190-8, 3040-3, 43510-0, 2275-4 ####[facility] LABIA [id number] [place] [address] [place] Chloride [Moles/Vol] 105 mmol/L Normal 97-105 [facility] Comment on above: Order Comment: Speci men Type: BLOOD SPECIMENOrdering Facility: [facility] Address: [address] [place], [place] [address] Performed By: #### 5 0190-8, 3040-3, 23599-7, 2275-4 ####[facility] LABCLIA [id number] [place] [address] [place] CO2 [Moles/Vol] 19 mmol/L Low 22-30 [facility] Comment on above: Order Comment: Speci men Type: BLOOD SPECIMENOrdering Facility: [facility] Address: [address] [place] [address] Performed By: #### 5 0190-8, 3040-3, 15342-1, 2275-4 ####[facility] LABIA [id number] [place] [address] [place] Creatinine [Mass/Vol] 0.77 mg/dL Normal 0.58-0.96 [facility] Comment on above: Order Comment: Speci men Type: BLOOD SPECIMENOrdering Facility: [facility] Address: [address] [place] [address] Performed By: #### 5 0190-8, 3040-3, 20000-8, 2275-05 ####[facility] LABIA [id number] [address] [place] Creatinine and Glomerular filtration rate.predicted panel (S/P/Bld) 105 mL/min/1.73m??? Normal >=60 [facility] Comment on above: Order Comment: Speci men Type: BLOOD SPECIMENOrdering Facility: [facility] Address: [address] [place] [address] Result Comment: Jessica mated Glomerular Filtration Rate [...] GFR. Performed By: #### 5 0190-8, 3040-3, 80510-8, 2275-4 ####[facility] LABCLIA [id number] [place] [address] [place] Glucose [Mass/Vol] 224 mg/dL High 74-99 [facility] Comment on above: Order Comment: Speci men Type: BLOOD SPECIMENOrdering Facility: [facility] Address: [address] [place] [address] Result Comment: The [place] Diabetes [employer] (ADA) provides guidance for cutoff [...] Standards of Medical Care in Diabetes 2016, [place] [employer]. Diabetes Care. 2016.39(Suppl 1). Performed By: #### 5 0190-8, 3040-3, 38054-0, 2276-4 ####[facility] LABCLIA [id number] [place] [address] [place] Potassium [Moles/Vol] 3.7 mmol/L Normal 3.7-5.1 [facility] Comment on above: Order Comment: Speci men Type: BLOOD SPECIMENOrdering Facility: [facility] Address: [address] [place] [address] Performed By: #### 5 0190-8, 3040-3, 65938-7, 2276-4 ####[facility] LABIA [id number] [place] [address] [place] Protein [Mass/Vol] 6.9 g/dL Normal 6.3-8.0 [facility] Comment on above: Order Comment: Speci men Type: BLOOD SPECIMENOrdering Facility: [facility] Address: [address] [place] [address] Performed By: #### 5 0190-8, 3040-3, 99413-8, 2276-4 ####[facility] LABCLIA [id number] [place] [address] [place] Sodium [Moles/Vol] 137 mmol/L Normal 136-144 [facility] Comment on above: Order Comment: Speci men Type: BLOOD SPECIMENOrdering Facility: [facility] Address: [address] [place] [address] Performed By: #### 5 0190-8, 3040-3, 96866-2, 6-4 ####[facility] LABIA [id number] [place] [address] [place] Urea nitrogen [Mass/Vol] 9 mg/dL Normal 7-21 [facility] Comment on above: Order Comment: Speci men Type: BLOOD SPECIMENOrdering Facility: [facility] Address: [address] [place] [address] Performed By: #### 5 0190-8, 3040-3, 55860-8, 6-4 ####[facility] LABIA [id number] [place] [address] [place] Ferritin SerPl-mCncon 2022 Ferritin [Mass/Vol] 13.2 ng/mL Low 14.7-205.[address] [facility] Comment on above: Order Comment: Speci men Type: BLOOD SPECIMENOrdering Facility: [facility] Address: [address] [place] [address] Performed By: #### 5 0190-8, 3040-3, 45744-1, 6-4 ####[facility] LABIA [id number] [place] [address] [place] Folate SerPl-mCncon 11-05-19 Folate [Mass/Vol] 9.3 ng/mL Normal >4.7 [facility] Comment on above: Order Comment: Speci men Type: BLOOD SPECIMENOrdering Facility: [facility] Address: [address] [place] [address] Performed By: #### 1 798-8, 2731-8, 2284-8, 2132-9 ####[facility] LABCLIA [id number] [place] [address] [place] Iron and Iron binding capaci ty panelon 11-04-2022 Iron [Mass/Vol] 52 ug/dL Normal 41-186 [facility] Comment on above: Order Comment: Speci men Type: BLOOD SPECIMENOrdering Facility: [facility] Address: [address] [place] [address] Performed By: #### 5 0190-8, 3040-3, 55849-6, 2276-4 ####[facility] LABCLIA [id number] [place] [address] [place] Iron binding capacity [Mass/Vol] 348 ug/dL Normal 232-386 [facility] Comment on above: Order Comment: Speci men Type: BLOOD SPECIMENOrdering Facility: [facility] Address: [address] [place] [address] Performed By: #### 5 0190-8, 3040-3, 10224-4, 6-4 ####[facility] LABIA [id number] [place] [address] [place] Iron/TIBC [Molar ratio] 14.9 % Low 15.0-57.0 [facility] Comment on above: Order Comment: Speci men Type: BLOOD SPECIMENOrdering Facility: [facility] Address: [address] [place] [address] Performed By: #### 5 0190-8, 3040-3, 54813-3, 6-4 ####[facility] LABCLIA [id number] [place] [address] [place] Lipase SerPl-cCncon 11-05-19 23 Lipase [Catalytic activity/Vol] 35 U/L Normal 16-61 [facility] Comment on above: Order Comment: Speci men Type: BLOOD SPECIMENOrdering Facility: [facility] Address: [address] [place] [address] Performed By: #### 5 0190-8, 3040-3, 96031-8, 2276-4 ####[facility] LABCLIA [id number] [place] [address] [place] PTH-Intact SerPl-ncon - Parathyrin.intact [Mass/Vol] 27 pg/mL Normal 15-65 [facility] Comment on above: Order Comment: Speci elida Type: BLOOD SPECIMENOrdering Facility: [facility] Address: [address] [place] [address] Performed By: #### 1 798-8, 2731-8, 2284-8, 2132-9 ####[facility] LABCLIA [id number] [place] [address] [place] US ABD RIGHT UPPER QUADRANTo n 11-04-2022 US ABD RIGHT UPPER QUADRANT Normal [facility] VITAMIN B1 (THIAMINE), WHOLE BLOODon 11-04-2022 Thiamine (Bld) [Moles/Vol] 165.0 nmol/L Normal 84.3-213.3 [facility] Comment on above: Order Comment: Geraldo marrero Type: BLOOD SPECIMENOrdering Facility: [facility] Address: [address] [place] [address] Result Comment: This assay measures the concentration of thiamine diphosphate (TDP), the primary active form of vitamin B1. Approximately 90 percent of vitamin B1 present in whole blood is TDP. Thiamine and thiamine monophosphate, which comprise the remaining 10 percent, are not measured.This test was developed and its performance characteristics determined by [facility]'s Lucie Harmon [facility] Pathology and Laboratory Medicine [place] ([facility]). It has not been cleared or approved by the FDA. [facility] is regulated under CLIA as qualified to perform high-complexity testing. This test is used for clinical purposes. It should not be regarded as investigational or for research. Performed By: #### B 1WB ####[facility] [id number] [place] [address] [place] Vit A SerPl-mCncon 3 Retinol [Mass/Vol] 0.44 mg/L Normal 0.30-1.20 [facility] Comment on above: Order Comment: Speci men Type: BLOOD SPECIMENOrdering Facility: [facility] Address: [address] [place] [address] Result Comment: This test was developed and its performance characteristics determined by [facility] Pathology and Laboratory Medicine [place] ([facility]). It has not been cleared or approved by the FDA. [facility] is regulated under CLIA as qualified to perform high-complexity testing. This test is used for clinical purposes. It should not be regarded as investigational or for research. Performed By: #### 2 923-1 ####[facility] [id number] [place] [address] [place] Vit B12 SerPl-mCncon 023 Cobalamin (Vitamin B12) [Mass/Vol] 1018 pg/mL Normal 232-1245 [facility] Comment on above: Order Comment: Speci men Type: BLOOD SPECIMENOrdering Facility: [facility] Address: [address] [place] [address] Performed By: #### 1 798-8, 2731-8, 2284-8, 2132-9 ####[facility] [id number] [place] [address] [place] Zinc SerPl-mCncon 11-04-2022 Zinc [Mass/Vol] 51 ug/dL Low 60-120 [facility] Comment on above: Order Comment: Speci men Type: BLOOD SPECIMENOrdering Facility: [facility] Address: [address] [place] [address] Result Comment: This test was developed and its performance characteristics determined by [facility] Pathology and Laboratory [facility] [place] (-[facility]). It has not been cleared or approved by the FDA. [facility] is regulated under CLIA as qualified to perform high-complexity testing. This test is used for clinical purposes. It should not be regarded as investigational or for research. Performed By: #### 5 763-8 ####[facility] LABCLIA [id number] [facility] [id number] [place], [place] [id number] [facility] Ambulatory Visit Summaryon 0 11-03-2022 Ambulatory Visit Summary Normal [address] [place] [address]- \.br\ Medications\.br\ What How Much When Why [...] Metabolic syndrome\.br\ PCOS- polycystic ovary syndrome\.br\ \.br\ [facility] Medicine Office/Clini c Noteon 11-03-2022 Family Medicine Office/Clinic Note Normal [facility] Comment on above: Result Comment: Elec tronically Signed By: Jaquan Paula\.br\Date and Time Signed: 11/03/22 11:43 EDT Provider Letteron 11-03-2022 Provider Letter Normal [facility] CBCon 11-02-2022 ABSOLUTE BAS 0.0 10*3/uL Normal 0.0-0.2 [facility] Comment on above: Performed By: #### A CBC, LIPA2, CMPF #### Testing performed at [address] [address] ABSOLUTE EOS 0.0 10*3/uL Normal 0.0-0.7 [facility] Comment on above: Performed By: #### A CBC, LIPA2, CMPF #### Testing performed at [address] [address] ABSOLUTE NEUTROPHIL COUNT 3.6 10*3/uL Normal 1.4-6.5 [facility] Comment on above: Performed By: #### A CBC, LIPA2, CMPF #### Testing performed at [address] [address] Basophils/100 WBC (Bld) 0.3 % Normal 0.0-2.0 [facility] Comment on above: Performed By: #### A CBC, LIPA2, CMPF #### Testing performed at [address] [address] DTYPE AUTO DIFF Normal [facility] Comment on above: Performed By: #### A CBC, LIPA2, CMPF #### Testing performed at [address] [address] Eosinophils/100 WBC (Bld) 0.1 % Normal 0.0-11.0 [facility] Comment on above: Performed By: #### A CBC, LIPA2, CMPF #### Testing performed at [address] [address] Lymphocytes (Bld) [#/Vol] 0.8 10*3/uL Low 1.2-3.4 [facility] Comment on above: Performed By: #### A CBC, LIPA2, CMPF #### Testing performed at [address] [address] Lymphocytes/100 WBC (Bld) 17.9 % Low 20.0-55.0 [facility] Comment on above: Performed By: #### A CBC, LIPA2, CMPF #### Testing performed at [address] [address] Monocytes (Bld) [#/Vol] 0.1 10*3/uL Normal 0.0-0.7 [facility] Comment on above: Performed By: #### A CBC, LIPA2, CMPF #### Testing performed at [address] [address] Monocytes/100 WBC (Bld) 2.3 % Normal 0.0-10.0 [facility] Comment on above: Performed By: #### A CBC, LIPA2, CMPF #### Testing performed at [address] [address] Neutrophils/100 WBC (Bld) 79.4 % High 37.0-75.0 [facility] Comment on above: Performed By: #### A CBC, LIPA2, CMPF #### Testing performed at [address] [address] Erythrocyte distribution width (RBC) [Ratio] 14.8 % High 11.5-14.5 [facility] Comment on above: Performed By: #### A CBC, LIPA2, CMPF #### Testing performed at [address] [address] Hematocrit (Bld) [Volume fraction] 38.8 % Normal 36.0-48.0 [facility] Comment on above: Performed By: #### A CBC, LIPA2, CMPF #### Testing performed at [address] [address] Hemoglobin (Bld) [Mass/Vol] 13.0 g/dL Normal 12.0-16.0 [facility] Comment on above: Performed By: #### A CBC, LIPA2, CMPF #### Testing performed at [address] [address] MCH (RBC) [Entitic mass] 30.6 pg Normal 26.0-35.0 [facility] Comment on above: Performed By: #### A CBC, LIPA2, CMPF #### Testing performed at [address] [address] MCHC (RBC) [Mass/Vol] 33.5 g/dL Normal 27.0-37.0 [facility] Comment on above: Performed By: #### A CBC, LIPA2, CMPF #### Testing performed at [address] [address] MCV (RBC) [Entitic vol] 91.2 fL Normal 80.0-100.0 [facility] Comment on above: Performed By: #### A CBC, LIPA2, CMPF #### Testing performed at [address] [address] Platelet mean volume (Bld) [Entitic vol] 9.9 fL Normal 7.4-11.0 [facility] Comment on above: Performed By: #### A CBC, LIPA2, CMPF #### Testing performed at [address] [address] Platelets (Bld) [#/Vol] 234 10*3/uL Normal 130-400 [facility] Comment on above: Performed By: #### A CBC, LIPA2, CMPF #### Testing performed at [address] [address] RBC (Bld) [#/Vol] 4.25 10*6/uL Normal 4.0-5.4 [facility] Comment on above: Performed By: #### A CBC, LIPA2, CMPF #### Testing performed at [place] [address] [place] [address] WBC (Bld) [#/Vol] 4.5 10*3/uL Normal 3.6-11.0 [facility] Comment on above: Performed By: #### A CBC, LIPA2, CMPF #### Testing performed at [address] [address] CBC, EDIF, PLATELETon 2022 ABSOLUTE BASOPHIL COUNT 0.0 10*3/uL 0.0 - 0.2 10*3/uL [facility] Basophils/100 WBC (Bld) 0.3 % 0.0 - 2.0 % [facility] Differential cell count method Nom (Bld) AUTO DIFF % [facility] Eosinophils (Bld) [#/Vol] 0.0 10*3/uL 0.0 - 0.7 10*3/uL [facility] Eosinophils/100 WBC (Bld) 0.1 % 0.0 - 11.0 % [facility] Erythrocyte distribution width (RBC) [Ratio] 14.8 % High 11.5 - 14.5 % [facility] Hematocrit (Bld) [Volume fraction] 38.8 % 36.0 - 48.0 % [facility] Hemoglobin (Bld) [Mass/Vol] 13.0 g/dL [facility] Interpretation and review of laboratory results Abnormal [facility] Lymphocytes (Bld) [#/Vol] 0.8 10*3/uL Low 1.2 - 3.4 10*3/uL [facility] Lymphocytes/100 WBC (Bld) 17.9 % Low 20.0 - 55.0 % [facility] MCH (RBC) [Entitic mass] 30.6 pg 26.0 - 35.0 PG [facility] MCHC (RBC) [Mass/Vol] 33.5 g/dL [facility] MCV (RBC) [Entitic vol] 91.2 fL [facility] Monocytes (Bld) [#/Vol] 0.1 10*3/uL 0.0 - 0.7 10*3/uL [facility] Monocytes/100 WBC (Bld) 2.3 % 0.0 - 10.0 % [facility] Neutrophils (Bld) [#/Vol] 3.6 10*3/uL 1.4 - 6.5 10*3/uL [facility] Neutrophils/100 WBC (Bld) 79.4 % High 37.0 - 75.0 % [facility] Platelet mean volume (Bld) [Entitic vol] 9.9 fL [facility] Platelets (Bld) [#/Vol] 234 10*3/uL 130 - 400 10*3/uL [facility] RBC (Bld) [#/Vol] 4.25 10*6/uL 4.0 - 5.4 10*6/u L [facility] WBC (Bld) [#/Vol] 4.5 10*3/uL 3.6 - 11.0 10*3/u L [facility] CMP FASTINGon 11-02-2022 A:G RATIO 1.5 RATIO Normal [facility] Comment on above: Performed By: #### A CBC, LIPA2, CMPF #### Testing performed at [address] [address] ALBUMIN 4.4 G/dl Normal 3.5-5.0 [facility] Comment on above: Performed By: #### A CBC, LIPA2, CMPF #### Testing performed at [address] [address] ALP [Catalytic activity/Vol] 87 U/L Normal 38-126 [facility] Comment on above: Performed By: #### A CBC, LIPA2, CMPF #### Testing performed at [address] [address] ALT [Catalytic activity/Vol] 22 U/L Normal <35 [facility] Comment on above: Performed By: #### A CBC, LIPA2, CMPF #### Testing performed at [address] [address] AST [Catalytic activity/Vol] 34 U/L Normal 14-36 [facility] Comment on above: Performed By: #### A CBC, LIPA2, CMPF #### Testing performed at [address] [address] Bilirubin [Mass/Vol] 0.4 mg/dL Normal 0.2-1.3 [facility] Comment on above: Performed By: #### A CBC, LIPA2, CMPF #### [place] [address] Calcium [Mass/Vol] 9.0 mg/dL Normal 8.4-10.2 [facility] Comment on above: Performed By: #### A CBC, LIPA2, CMPF #### [place] [address] Chloride [Moles/Vol] 106 mmol/L Normal 98-107 [facility] Comment on above: Result Comment: Yessy plascencia note: Triglyceride levels of 600mg/dL or higher may positively bias chloride results by approximately 2.1 mmol Performed By: #### A CBC, LIPA2, CMPF #### [place] [address] CO2 [Moles/Vol] 22 mmol/L Normal 22-30 [facility] Comment on above: Performed By: #### A CBC, LIPA2, CMPF #### [place] [address] Creatinine [Mass/Vol] 0.80 mg/dL Normal 0.70-1.20 [facility] Comment on above: Performed By: #### A CBC, LIPA2, CMPF #### Testing performed at [place] [id number] EST. GFR, 106 ml/min/1.73sq.m [facility] Comment on above: Performed By: #### A CBC, LIPA2, CMPF #### Testing performed at [place] [id number] EST. GFR,Non 88 ml/min/1.73sq.m [facility] Comment on above: Performed By: #### A CBC, LIPA2, CMPF #### [place] [address] GFR Information Average GFR for 30-39 years old = 107. Normal [facility] Comment on above: Result Comment: Chief Security And Safety Officer alejandra Kidney disease, GFR = <60. Kidney failure, GFR = <15. The GFR estimate is not adjusted for extreme body surface area or acute process, nor has it been validated for women or ethnic groups other than and . Performed By: #### A CBC, LIPA2, CMPF #### Testing performed at [address] [address] Glucose [Mass/Vol] 119 mg/dL High 70-100 [facility] Comment on above: Result Comment: NORMAL <100 mg/dL PREDIABETES 101-126 mg/dL DIABETES 126 mg/dL or higher Performed By: #### A CBC, LIPA2, CMPF #### Testing performed at [address] [address] Potassium [Moles/Vol] 4.2 mmol/L Normal 3.5-5.1 [facility] Comment on above: Performed By: #### A CBC, LIPA2, CMPF #### Testing performed at [address] [address] Protein [Mass/Vol] 7.3 g/dL Normal 6.3-8.2 [facility] Comment on above: Performed By: #### A CBC, LIPA2, CMPF #### Testing performed at [address] [address] Sodium [Moles/Vol] 138 mmol/L Normal 137-145 [facility] Comment on above: Performed By: #### A CBC, LIPA2, CMPF #### Testing performed at [address] [address] Urea nitrogen [Mass/Vol] 8 mg/dL Normal 7-20 [facility] Comment on above: Performed By: #### A CBC, LIPA2, CMPF #### Testing performed at [address] [address] CNPNon 11-02-2022 CNPN Normal [facility] METABOLIC PANE Nestor 11-02-2022 Albumin [Mass/Vol] 4.4 G/dl 3.5 - 5.0 G/dl [facility] Albumin/Globulin [Mass ratio] 1.5 {ratio} RATIO [facility] ALP [Catalytic activity/Vol] 87 U/L [facility] ALT [Catalytic activity/Vol] 22 U/L NINF [facility] AST [Catalytic activity/Vol] 34 U/L [facility] Bilirubin [Mass/Vol] 0.4 mg/dL [facility] Calcium [Mass/Vol] 9.0 mg/dL [facility] Chloride [Moles/Vol] 106 mmol/L [facility] Comment on above: Please note: Triglyc eride levels of 600mg/dL or higher may positively bias chloride results by approximately 2.1 mmol CO2 [Moles/Vol] 22 mmol/L [facility] Creatinine [Mass/Vol] 0.80 mg/dL [facility] GFR COMMENT Average GFR for 30-39 years old = 107. [facility] Comment on above: Chronic Kidney disea se, GFR = <60. Kidney failure, GFR = <15. The GFR estimate is not adjusted for extreme body surface area or acute process, nor has it been validated for women or ethnic groups other than and . GFR/1.73 sq M.predicted among blacks MDRD (S/P/Bld) [Vol rate/Area] 106 mL/min/{1.73_m2} ml/min/1.73sq.m [facility] GFR/1.73 sq M.predicted among non-blacks MDRD (S/P/Bld) [Vol rate/Area] 88 mL/min/{1.73_m2} ml/min/1.73sq.m [facility] Glucose post fast [Mass/Vol] 119 mg/dL High [facility] Comment on above: NORMAL <100 mg/dL PREDIABETES 101-126 mg/dL DIABETES 126 mg/dL or higher Interpretation and review of laboratory results Abnormal [facility] Potassium [Moles/Vol] 4.2 mmol/L [facility] Protein [Mass/Vol] 7.3 g/dL [facility] Sodium [Moles/Vol] 138 mmol/L [facility] Urea nitrogen [Mass/Vol] 8 mg/dL [facility] HCG ( test) Ql (U)o n 11-02-2022 [facility] HCG QUALITATIVE, URINEon HCG ( test) Ql (U) Negative NEGATIVE [facility] LACTATE, BLOODon 11-02-2022 Lactate [Moles/Vol] 1.3 mmol/L 0.7 - 2.0 mmol/L [facility] LACTATE,BLOODon 11-02-2022 Lactate [Moles/Vol] 1.3 mmol/L Normal 0.7-2.0 [facility] Comment on above: Performed By: #### L ACTAC #### Testing performed at [address] [address] LIPASEon 11-02-2022 Lipase [Catalytic activity/Vol] 105 U/L 23 - 300 U/L [facility] LIPASE,SERUMon 11-02-2022 LIPASE,SERUM 105 U/L Normal 23-300 [facility] Comment on above: Performed By: #### A CBC, LIPA2, CMPF #### Testing performed at [address] [address] No Panel Informationon 11-02 [facility] RAD - MISCon 11-02-2022 RAD - MISC [id number] [id number] Normal [facility] URINALYSIS, MACROon 11-03-19 23 Bilirubin Ql (U) Negative NEGATIVE [facility] Clarity (U) CLEAR CLEAR [facility] Color (U) YELLOW YELLOW [facility] Glucose Test strip (U) [Mass/Vol] Negative NEGATIVE mg/dl [facility] Hemoglobin Ql (U) Negative NEGATIVE [facility] Interpretation and review of laboratory results Abnormal [facility] Ketones (U) [Mass/Vol] Negative NEGATIVE mg/dl [facility] [facility] Leukocyte esterase Test strip Ql (U) Negative NEGATIVE [facility] Nitrite Ql (U) Negative NEGATIVE [facility] pH (U) 8.5 [pH] High 5.0 - 7.0 [facility] Protein Ql (U) Negative NEGATIVE mg/dl [facility] Specific gravity (U) [Rel density] 1.020 1.010 - 1.025 [facility] Urobilinogen (U) [Mass/Vol] 1.0 mg/dL [facility] URINE HCG QUALon 11-02-2022 Beta HCG ( test) Ql (U) Negative Normal NEGATIVE [facility] Comment on above: Performed By: #### U HCGT, UMAC #### Testing performed at [address] [address] URINE MACROSCOPICon 11-03-19 Bilirubin Ql (U) Negative Normal NEGATIVE [facility] Comment on above: Performed By: #### U HCGT, UMAC #### Testing performed at [address] [address] Clarity (U) CLEAR Normal CLEAR [facility] Comment on above: Performed By: #### U HCGT, UMAC #### Testing performed at [address] [address] Color (U) YELLOW Normal YELLOW [facility] Comment on above: Performed By: #### U HCGT, UMAC #### Testing performed at [address] [address] Glucose Ql (U) Negative Normal NEGATIVE [facility] Comment on above: Performed By: #### U HCGT, UMAC #### Testing performed at [address] [address] pH (U) 8.5 [pH] High 5.0-7.0 [facility] Comment on above: Performed By: #### U HCGT, UMAC #### Testing performed at [address] [address] URINE HEMOGLOBIN Negative Normal NEGATIVE [facility] Comment on above: Performed By: #### U HCGT, UMAC #### Testing performed at [address] [place] [address] URINE KETONE Negative Normal NEGATIVE [facility] Comment on above: Performed By: #### U HCGT, UMAC #### Testing performed at [address] [address] URINE LEUKOTEST Negative Normal NEGATIVE [facility] Comment on above: Performed By: #### U HCGT, UMAC #### Testing performed at [address] [address] URINE NITRATES Negative Normal NEGATIVE [facility] Comment on above: Performed By: #### U HCGT, UMAC #### Testing performed at [address] [address] URINE SPEC GRAVITY 1.020 Normal 1.010-1.025 [facility] Comment on above: Performed By: #### U HCGT, UMAC #### Testing performed at [address] [address] URINE TOTAL PROTEIN Negative Normal NEGATIVE [facility] Comment on above: Performed By: #### U HCGT, UMAC #### Testing performed at [address] [address] Urobilinogen Qn (U) 1.0 {Munir'U}/dL Normal 0.2-1.0 [facility] Comment on above: Performed By: #### U HCGT, UMAC #### Testing performed at [address] [address] CBC with Auto Differentialon 10-31-2022 Basophils (Bld) [#/Vol] [facility] Basophils/100 WBC (Bld) 0 % 0 - 2 % [facility] Eosinophils (Bld) [#/Vol] 0.03 10*3/uL [facility] Eosinophils/100 WBC (Bld) 0 % Low 1 - 4 % [facility] Erythrocyte distribution width (RBC) [Ratio] 12.8 % 11.8 - 14.4 % [facility] Hematocrit (Bld) [Volume fraction] 38.9 % 36.3 - 47.1 % [facility] Hemoglobin (Bld) [Mass/Vol] 13.3 g/dL 11.9 - 15.1 g/dL [facility] Immature granulocytes (Bld) [#/Vol] [facility] Immature granulocytes/100 WBC (Bld) 0 % 0 [facility] Interpretation and review of laboratory results Abnormal [facility] Lymphocytes/100 WBC (Bld) 19 % Low 24 - 43 % [facility] Lymphocytes/100 WBC (Bld) 1.46 % [facility] MCH (RBC) [Entitic mass] 30.6 pg 25.2 - 33.5 pg [facility] MCHC (RBC) [Mass/Vol] 34.2 g/dL 28.4 - 34.8 g/dL [facility] MCV (RBC) [Entitic vol] 89.4 fL 82.6 - 102.9 fL [facility] Monocytes/100 WBC (Bld) 5 % 3 - 12 % [facility] Monocytes/100 WBC (Bld) 0.41 % [facility] Neutrophils/100 WBC (Bld) 76 % High 36 - 65 % [facility] Nucleated RBC/100 WBC (Bld) [Ratio] 0.0 % 0.0 per 100 WBC [facility] Platelet mean volume (Bld) [Entitic vol] 12.0 fL 8.1 - 13.5 fL [facility] Platelets (Bld) [#/Vol] 246 10*3/uL [facility] RBC (Bld) [#/Vol] 4.35 10*6/uL 3.95 - 5.11 m/uL [facility] Segmented neutrophils/100 WBC (Bld) 5.66 % [facility] WBC other (Bld) [#/Vol] 7.6 [facility] CBC with Diffon 10-31-2022 Abs. Basophil <0.03 Normal 0.00-0.20 [facility] Comment on above: Performed By: #### L JUDITH BROWN, CDP #### [address] [place] [address] Veterinary Radiologist: Baldomero Espinoza MD Abs.Imm.Granulocyte <0.03 Normal 0.00-0.30 [facility] Comment on above: Performed By: #### L JUDITH BROWN, CDP #### [facility] [address] [place] [address] [address] [place] [id number] Veterinary Radiologist: Baldomero Espinoza MD Abs.Neutrophil (Seg) 5.66 k/uL Normal 1.50-8.10 [facility] Comment on above: Performed By: #### L JUDITH BROWN, CDP #### [address] [place] [address] Veterinary Radiologist: Baldomero Espinoza MD Basophils/100 WBC (Bld) 0 % Normal 0-2 [facility] Comment on above: Performed By: #### L IP, CP, CDP #### [address] [place], [facility] Veterinary Radiologist: Baldomero Espinoza MD Eosinophils (Bld) [#/Vol] 0.03 10*3/uL Normal 0.00-0.44 [facility] Comment on above: Performed By: #### L IP, CP, CDP #### [address] [place], [place] [address] Veterinary Radiologist: Baldomero Espinoza MD Eosinophils/100 WBC (Bld) 0 % Low 1-4 [facility] Comment on above: Performed By: #### L IP, CP, CDP #### [address] [place], [facility] Veterinary Radiologist: Baldomero Espinoza MD Erythrocyte distribution width (RBC) [Ratio] 12.8 % Normal 11.8-14.4 [facility] Comment on above: Performed By: #### L IP, CP, CDP #### [address] [place], [facility] Veterinary Radiologist: Baldomero Espinoza MD Hematocrit (Bld) [Volume fraction] 38.9 % Normal 36.3-47.1 [facility] Comment on above: Performed By: #### L IP, CP, CDP #### [address] [place], [facility] Veterinary Radiologist: Baldomero Espinoza MD Hemoglobin (Bld) [Mass/Vol] 13.3 g/dL Normal 11.9-15.1 [facility] Comment on above: Performed By: #### L IP, CP, CDP #### [address] [place], [facility] Veterinary Radiologist: Baldomero Espinoza MD Immature granulocytes/100 WBC (Bld) 0 % Normal 0 [facility] Comment on above: Performed By: #### L IP, CP, CDP #### [facility] [address] [place], [facility] Veterinary Radiologist: Baldomero Espinoza MD Lymphocytes (Bld) [#/Vol] 1.46 10*3/uL Normal 1.10-3.70 [facility] Comment on above: Performed By: #### L IP, CP, CDP #### [facility] [address] [place], [place] [address] Veterinary Radiologist: Baldomero Espinoza MD Lymphocytes/100 WBC (Bld) 19 % Low 24-43 [facility] Comment on above: Performed By: #### L KEVIN, CP, CDP #### [address] [place], [place] [address] Veterinary Radiologist: Baldomero Espinoza MD MCH (RBC) [Entitic mass] 30.6 pg Normal 25.2-33.5 [facility] Comment on above: Performed By: #### L KEVIN CP, CDP #### [address] [place], [facility] Veterinary Radiologist: Baldomero Espinoza MD MCHC (RBC) [Mass/Vol] 34.2 g/dL Normal 28.4-34.8 [facility] Comment on above: Performed By: #### L KEVIN CP, CDP #### [address] [place], [place] [address] Veterinary Radiologist: Baldomero Espinoza MD MCV (RBC) [Entitic vol] 89.4 fL Normal 82.6-102.9 [facility] Comment on above: Performed By: #### L IP, CP, CDP #### [address] [place] [id number] Veterinary Radiologist: Baldomero Espinoza MD Monocytes (Bld) [#/Vol] 0.41 10*3/uL Normal 0.10-1.20 [facility] Comment on above: Performed By: #### L IP, CP, CDP #### [facility] [address] [place], [place] [phone] Veterinary Radiologist: Baldomero Espinoza MD Monocytes/100 WBC (Bld) 5 % Normal 3-12 [facility] Comment on above: Performed By: #### L IP, CP, CDP #### [facility] [address] [place], [place] [address]83 Veterinary Radiologist: Baldomero Espinoza MD Neutrophil (Seg) 76 % High 36-65 [facility] Comment on above: Performed By: #### L IP, CP, CDP #### [facility] [address] [place], [facility]83 Veterinary Radiologist: Baldomero Espinoza MD NRBC Automated 0.0 per 100 WBC Normal 0.0 [facility] Comment on above: Performed By: #### L IP, CP, CDP #### [address] [place], [facility] Veterinary Radiologist: Baldomero Espinoza MD Platelet mean volume (Bld) [Entitic vol] 12.0 fL Normal 8.1-13.5 [facility] Comment on above: Performed By: #### L IP, CP, CDP #### [address] [place], [facility]83 Veterinary Radiologist: Baldomero Espinoza MD Platelets (Bld) [#/Vol] 246 10*3/uL Normal 138-453 [facility] Comment on above: Performed By: #### L IP, CP, CDP #### [address] [place], [place] [address]83 Veterinary Radiologist: Baldomero Espinoza MD RBC (Bld) [#/Vol] 4.35 10*6/uL Normal 3.95-5.11 [facility] Comment on above: Performed By: #### L IP, CP, CDP #### [address] [place], [facility]83 Veterinary Radiologist: Baldomero Espinoza MD WBC (Bld) [#/Vol] 7.6 10*3/uL Normal 3.5-11.3 [facility] Comment on above: Performed By: #### L IP, CP, CDP #### [facility] [address] [place] [address] Veterinary Radiologist: Baldomero Espinoza MD [facility] Albumin [Mass/Vol] 4.5 g/dL 3.5 - 5.2 g/dL [facility] Albumin/Globulin [Mass ratio] 1.7 {ratio} 1.0 - 2.5 [facility] ALP [Catalytic activity/Vol] 76 U/L 35 - 104 U/L [facility] ALT [Catalytic activity/Vol] 14 U/L 5 - 33 U/L [facility] Anion gap [Moles/Vol] 12 mmol/L 9 - 17 mmol/L [facility] AST [Catalytic activity/Vol] 24 U/L NINF - 32 U/L [facility] Bilirubin [Mass/Vol] 0.3 mg/dL 0.3 - 1.2 mg/dL [facility] Calcium [Mass/Vol] 9.1 mg/dL 8.6 - 10.4 mg/dL [facility] Chloride [Moles/Vol] 106 mmol/L 98 - 107 mmol/L [facility] CO2 [Moles/Vol] 18 mmol/L Low 20 - 31 mmol/L [facility] Creatinine [Mass/Vol] 0.7 mg/dL 0.5 - 0.9 mg/dL [facility] GFR/1.73 sq M.predicted MDRD (S/P/Bld) [Vol rate/Area] - PINF [facility] Comment on above: These results are [...] [Mass/Vol] 87 mg/dL 70 - 99 mg/dL [facility] Interpretation and review of laboratory results Abnormal [facility] Potassium [Moles/Vol] 3.8 mmol/L 3.7 - 5.3 mmol/L [facility] Protein [Mass/Vol] 7.2 g/dL 6.4 - 8.3 g/dL [facility] Sodium [Moles/Vol] 136 mmol/L 135 - 144 mmol/L [facility] Urea nitrogen [Mass/Vol] 7 mg/dL 6 - 20 mg/dL [facility] Urea nitrogen/Creatinine [Mass ratio] 10 mg/mg 9 - 20 [facility] Comp Metabolic Profon 2022 Albumin [Mass/Vol] 4.5 g/dL Normal 3.5-5.2 [facility] Comment on above: Performed By: #### L JUDITH BROWN, CDP #### [facility] [address] [place], [place] 1176083 Veterinary Radiologist: Baldomero Espinoza MD Albumin/Glob Ratio 1.7 Normal 1.0-2.5 [facility] Comment on above: Performed By: #### L JUDITH BROWN, CDP #### [facility] [address] [place], [place] [address] Veterinary Radiologist: Baldomero Espinoza MD Alkaline Phos 76 U/L Normal 35-104 [facility] Comment on above: Performed By: #### L JUDITH BROWN, CDP #### [facility] [address] [place], [place] 6[address]6483 Veterinary Radiologist: Baldomero Espinoza MD ALT [Catalytic activity/Vol] 14 U/L Normal 5-33 [facility] Comment on above: Performed By: #### L JUDITH BROWN, CDP #### [facility] [address] [place], [place] [phone] Veterinary Radiologist: Baldomero Espinoza MD Anion gap [Moles/Vol] 12 mmol/L Normal 9-17 [facility] Comment on above: Performed By: #### L IP, CP, CDP #### [facility] [address] [place], [place] [phone] Veterinary Radiologist: Baldomero Espinoza MD AST [Catalytic activity/Vol] 24 U/L Normal <32 [facility] Comment on above: Performed By: #### L IP, CP, CDP #### [facility] [address] [place], [place] 17[address]83 Veterinary Radiologist: Baldomero Espinoza MD Bilirubin [Mass/Vol] 0.3 mg/dL Normal 0.3-1.2 [facility] Comment on above: Performed By: #### L IP, CP, CDP #### [address] [place], [place] [address]28883 Veterinary Radiologist: Baldomero Espinoza MD BUN/CRE Ratio 10 Normal 9-20 [facility] Comment on above: Performed By: #### L IP, CP, CDP #### [address] [place], [place] [address]83 Veterinary Radiologist: Baldomero Espinoza MD Calcium [Mass/Vol] 9.1 mg/dL Normal 8.6-10.4 [facility] Comment on above: Performed By: #### L IP, CP, CDP #### [address] [place], [place] 5329783 Veterinary Radiologist: Baldomero Espinoza MD Chloride [Moles/Vol] 106 mmol/L Normal 98-107 [facility] Comment on above: Performed By: #### L IP, CP, CDP #### [address] [place], [place] 9[address]1383 Veterinary Radiologist: Baldomero Espinoza MD CO2 [Moles/Vol] 18 mmol/L Low 20-31 [facility] Comment on above: Performed By: #### L IP, CP, CDP #### [address] [place] [address] Veterinary Radiologist: Baldomero Espinoza MD Creatinine [Mass/Vol] 0.7 mg/dL Normal 0.5-0.9 [facility] Comment on above: Performed By: #### L IP, CP, CDP #### [facility] [address] [place] [address] Veterinary Radiologist: Baldomero Espinoza MD GFR/1.73 sq M.predicted among non-blacks MDRD (S/P/Bld) [Vol rate/Area] mL/min/{1.73_m2} Normal >60 [facility] Comment on above: Result Comment: [...] By: #### L IP, CP, CDP #### [facility] [address] [place] [address] Veterinary Radiologist: Baldomero Espinoza MD Glucose [Mass/Vol] 87 mg/dL Normal 70-99 [facility] Comment on above: Performed By: #### L IP, CP, CDP #### [facility] [address] [place] [address] Veterinary Radiologist: Baldomero Espinoza MD Potassium [Moles/Vol] 3.8 mmol/L Normal 3.7-5.3 [facility] Comment on above: Performed By: #### L IP, CP, CDP #### [facility] [address] [place] [address] Veterinary Radiologist: Baldomero Espinoza MD Protein [Mass/Vol] 7.2 g/dL Normal 6.4-8.3 [facility] Comment on above: Performed By: #### L IP, CP, CDP #### [facility] [address] [place], [place] 8182383 Veterinary Radiologist: Baldomero Espinoza MD Sodium [Moles/Vol] 136 mmol/L Normal 135-144 [facility] Comment on above: Performed By: #### L JUDITH BROWN, CDP #### [facility] [address] [place], [place] 3493583 Veterinary Radiologist: Baldomero Espinoza MD Urea nitrogen [Mass/Vol] 7 mg/dL Normal 6-20 [facility] Comment on above: Performed By: #### L JUDITH BROWN, CDP #### [facility] [address] [place], [place] 0[address]83 Veterinary Radiologist: Baldmoero Espinoza MD Lipaseon 10-31-2022 Lipase [Catalytic activity/Vol] 43 U/L Normal 13-60 [facility] Comment on above: Performed By: #### L JUDITH BROWN, CDP #### [facility] [address] [place], [facility] Veterinary Radiologist: Baldomero Espinoza MD Lipase [Catalytic activity/Vol] 43 U/L 13 - 60 U/L [facility] Microscopic Urinalysison Bacteria LM Ql (Urine sed) 1+ Abnormal None [facility] Epithelial cells LM.HPF (Urine sed) [#/Area] 2 TO 5 [facility] Interpretation and review of laboratory results Abnormal [facility] RBC LM.HPF (Urine sed) [#/Area] None [facility] WBC LM.HPF (Urine sed) [#/Area] None [facility] No Panel Informationon 10-31 [facility] UA w/Reflex Cultureon 2022 Bilirubin, SemiQt,Ur Negative Normal NEG [facility] Comment on above: Performed By: #### U MICAO, UAX ####[facility] [place] [address] Lab Director: Baldomero Espinoza MD Blood, Urine Negative Normal NEG [facility] Comment on above: Performed By: #### U MICAO, UAX ####[address] , [place] [address] Lab Director: Baldomero Espinoza MD Clarity (U) Clear Normal CLEAR [facility] Comment on above: Performed By: #### U MICAO, UAX ####[address] , [place] 230[address]83 Lab Director: Baldomero Espinoza MD Color (U) Yellow Normal YEL [facility] Comment on above: Performed By: #### U MICAO, UAX ####[address] , [place] [address]83 Lab Director: Baldomero Espinoza MD Glucose Ql (U) Negative Normal NEG [facility] Comment on above: Performed By: #### U MICAO, UAX ####[address] , [place] [address]83 Lab Director: Baldomero Espinoza MD Ketones Ql (U) Negative Normal NEG [facility] Comment on above: Performed By: #### U MICAO, UAX ####[address] [place] [address] Lab Director: Baldomero Espinoza MD Leukocyte esterase Test strip Ql (U) Negative Normal NEG [facility] Comment on above: Performed By: #### U MICAO, UAX ####[address] [place] [address] Lab Director: Baldomero Espinoza MD Nitrite,Ur Negative Normal NEG [facility] Comment on above: Performed By: #### U MICAO, UAX ####[address] [place] [address] Lab Director: Baldomero Espinoza MD PH,Ur 7.0 Normal 5.0-9.0 [facility] Comment on above: Performed By: #### U MICAO, UAX ####[facility] [place] [address] , [place] [id number] [facility] Director: Baldomero Espinoza MD Protein Ql (U) Negative Normal NEG [facility] Comment on above: Performed By: #### U MICAO, UAX ####[address] , [place] 6[address] lab Director: Baldomero Espinoza MD Spec. Arjay,Ur 1.015 Normal 1.010-1.020 [facility] Comment on above: Performed By: #### U MICAO, UAX ####[address] , [place] [address]83 lab Director: Baldomero Espinoza MD Urobilinogen,Ur Normal Normal 0.0-1.0 [facility] Comment on above: Performed By: #### U MICAO, UAX ####[address] , [place] [address] lab Director: Baldomero Espinoza MD Urinalysis with Reflex to Cu ltureon 10-31-2022 Bilirubin Ql (U) Negative NEGATIVE [facility] Clarity (U) Clear Clear [facility] Color (U) Yellow Yellow [facility] Glucose Test strip (U) [Mass/Vol] Negative NEGATIVE mg/dL [facility] Hemoglobin Auto test strip Ql (U) Negative NEGATIVE [facility] Ketones (U) [Mass/Vol] Negative NEGATIVE mg/dL [facility] Leukocyte esterase Test strip Ql (U) Negative NEGATIVE [facility] Nitrite Ql (U) Negative NEGATIVE [facility] pH (U) 7.0 [pH] 5.0 - 9.0 [facility] Protein (U) [Mass/Vol] Negative NEGATIVE mg/dL [facility] Specific gravity (U) [Rel density] 1.015 1.010 - 1.020 [facility] Urobilinogen Qn (U) Normal 0.0 - 1.0 EU/dL [facility] Urinalysis,Microon 3 Bacteria 1+ Abnormal NONE [facility] Comment on above: Performed By: #### U MICAO, UAX ####[facility] [place] [address] lab Director: Baldomero Espinoza MD Epithelial cells LM Ql (Urine sed) 2 TO 5 Normal 0-25 [facility] Comment on above: Performed By: #### U MICAO, UAX ####[facility] [place] [address] lab Director: Baldomero Espinoza MD Urine RBC's None Normal 0-2 [facility] Comment on above: Performed By: #### U MICAO, UAX ####[facility] , [place] [address] lab Director: Baldomero Espinoza MD Urine WBC's None Normal 0-5 [facility] Comment on above: Performed By: #### U MICAO, UAX ####[facility] [place] [address] lab Director: Baldomero Espinoza MD XR [...] E Regalado MD 10/31/22 Final result Normal [facility] 1. No acute vertebral body height loss or malalignment within the lumbar spine. 2. Mild anterior wedging of lower thoracic vertebral bodies, similar to the prior CT of 07/27/2021. 3. Prior cholecystectomy. Moderate stool burden. [facility] EXAMINATION: 5 XRAY VIEWS OF THE [...] sacral arcuate lines appear intact. Pelvic phleboliths. [facility] Luis E Regalado MD - 10/31/2022 [...] 07/27/2021. 3. Prior cholecystectomy. Moderate stool burden. [facility] Radiology Study observation (narrative) [facility] XR LUMBAR SPINE (MIN 4 VIEWS )Ordered By: Luis E eRgalado on 10-31-2022 [facility] Work Phone: Transfer Inon 10-30-2022 Transfer In [id number] 6#1.00CD:127 [facility] Discharge Instructionson Discharge Instructions [id number] 183#1.00CD:127 [facility] Comment on above: Other Comment: wrong folder Population Healthon 10-30-19 23 Population Health [facility] Auth for Release of Medical Recordson 10-28-2022 Auth for Release of Medical Records [id number] 7#1.00CD:127 [facility] CBC panel Auto (Bld)on 10-28 Erythrocyte distribution width (RBC) [Ratio] 13.2 % Normal 11.5-15.0 [facility] Comment on above: Order Comment: Speci elida Type: BLOOD SPECIMENOrdering Facility: [facility] Address: [address] [address] Performed By: #### 5 8410-2 ####[facility]ORY[facility] [id number] [place] [address] [place] Hematocrit (Bld) [Volume fraction] 33.4 % Low 36.0-46.0 [facility] Comment on above: Order Comment: Speci men Type: BLOOD SPECIMENOrdering Facility: [facility] Address: [address] [address] Performed By: #### 5 8410-2 ####[facility]ORYCL[facility] [id number] [place] [address] [place] Hemoglobin (Bld) [Mass/Vol] 10.9 g/dL Low 11.5-15.5 [facility] Comment on above: Order Comment: Speci men Type: BLOOD SPECIMENOrdering Facility: [facility] Address: [address] [address] Performed By: #### 5 8410-2 ####[facility] [id number] [address] [place] [facility] MCH (RBC) [Entitic mass] 30.4 pg Normal 26.0-34.0 [facility] Comment on above: Order Comment: Speci men Type: BLOOD SPECIMENOrdering Facility: [facility] Address: [address] [address] Performed By: #### 5 8410-2 ####[facility] [id number] [address] [place] MCHC (RBC) [Mass/Vol] 32.6 g/dL Normal 30.5-36.0 [facility] Comment on above: Order Comment: Speci men Type: BLOOD SPECIMENOrdering Facility: [facility] Address: [address] [address] Performed By: #### 5 8410-2 ####[facility] [id number] [address] [place] MCV (RBC) [Entitic vol] 93.3 fL Normal 80.0-100.0 [facility] Comment on above: Order Comment: Speci men Type: BLOOD SPECIMENOrdering Facility: [facility] Address: [address] [address] Performed By: #### 5 8410-2 ####[facility] [id number] [address] [place] Nucleated RBC (Bld) [#/Vol] 10*3/uL Normal <0.01 [facility] Comment on above: Order Comment: Speci men Type: BLOOD SPECIMENOrdering Facility: [facility] Address: [address] [address] Performed By: #### 5 8410-2 ####[facility] [id number] [place] [address] [place] Platelet mean volume (Bld) [Entitic vol] 11.7 fL Normal 9.0-12.7 [facility] Comment on above: Order Comment: Speci men Type: BLOOD SPECIMENOrdering Facility: [facility] Address: [address] [address] Performed By: #### 5 8410-2 ####[facility] [id number] [place] [id number] [place] Platelets (Bld) [#/Vol] 174 10*3/uL Normal 150-400 [facility] Comment on above: Order Comment: Speci men Type: BLOOD SPECIMENOrdering Facility: [facility] Address: [address] [place] [address] Performed By: #### 5 8410-2 ####[facility] [id number] [place] [id number] [place] RBC (Bld) [#/Vol] 3.58 10*6/uL Low 3.90-5.20 [facility] Comment on above: Order Comment: Speci men Type: BLOOD SPECIMENOrdering Facility: [facility] Address: [address] [place] [address] Performed By: #### 5 8410-2 ####[facility] [id number] [facility] [id number] [place] WBC (Bld) [#/Vol] 4.62 10*3/uL Normal 3.70-11.00 [facility] Comment on above: Order Comment: Speci men Type: BLOOD SPECIMENOrdering Facility: [facility] Address: [address] [place] [address] Performed By: #### 5 8410-2 ####[facility] [id number] [place] [address] [place] CNDSon 10-28-2022 CNDS Normal [facility] Comprehensive metabolic 2000 panelon 10-28-2022 Albumin [Mass/Vol] 3.2 g/dL Low 3.9-4.9 [facility] Comment on above: Order Comment: Speci men Type: BLOOD SPECIMENOrdering Facility: [facility] Address: [address] [address] Performed By: #### 2 4323-8, 2776-02, ####[facility]ORYCLIA [id number] [place] [address] [place] ALP [Catalytic activity/Vol] 54 U/L Normal 34-123 [facility] Comment on above: Order Comment: Speci men Type: BLOOD SPECIMENOrdering Facility: [facility] Address: [address] [place] [address] Performed By: #### 2 4323-8, 2776-02, ####[facility]ATORYCLIA [id number] [place] [address] [place] ALT [Catalytic activity/Vol] 11 U/L Normal 7-38 [facility] Comment on above: Order Comment: Speci men Type: BLOOD SPECIMENOrdering Facility: [facility] Address: [address] [place] [address] Performed By: #### 2 4323-8, 2776-02, ####[facility]ATORYCLIA [id number] [place] [address] [place] Anion gap [Moles/Vol] 9 mmol/L Normal 9-18 [facility] Comment on above: Order Comment: Speci men Type: BLOOD SPECIMENOrdering Facility: [facility] Address: [address] [place], [place] [address] Performed By: #### 2 4323-8, 2776-02, ####[facility]ATORYCLIA [id number] [place] [address] [place] AST [Catalytic activity/Vol] 23 U/L Normal 13-35 [facility] Comment on above: Order Comment: Speci men Type: BLOOD SPECIMENOrdering Facility: [facility] Address: [address] Performed By: #### 2 4323-8, 27708-15, ####[facility]ATORYCLIA [id number] [place] [address] [place] Bilirubin [Mass/Vol] 0.3 mg/dL Normal 0.2-1.3 [facility] Comment on above: Order Comment: Speci men Type: BLOOD SPECIMENOrdering Facility: [facility] Address: [address] [address] Performed By: #### 2 4323-8, 2776-02, ####[facility]ATORYCLIA [id number] [place] [address] [place] Calcium [Mass/Vol] 8.3 mg/dL Low 8.5-10.2 [facility] Comment on above: Order Comment: Speci men Type: BLOOD SPECIMENOrdering Facility: [facility] Address: [address] [address] Performed By: #### 2 4323-8, 2776-02, ####[facility] [id number] [place] [address] [place] Chloride [Moles/Vol] 108 mmol/L High 97-105 [facility] Comment on above: Order Comment: Speci men Type: BLOOD SPECIMENOrdering Facility: [facility] Address: [address] Performed By: #### 2 4323-8, 2776-02, ####[facility]ATORYCLIA [id number] [place] [address] [place] CO2 [Moles/Vol] 21 mmol/L Low 22-30 [facility] Comment on above: Order Comment: Speci men Type: BLOOD SPECIMENOrdering Facility: [facility] Address: [address] [address] Performed By: #### 2 4323-8, 2776-02, ####[facility]ATORYCLIA [id number] [place] [address] [place] Creatinine [Mass/Vol] 0.76 mg/dL Normal 0.58-0.96 [facility] Comment on above: Order Comment: Geraldo marrero Type: BLOOD SPECIMENOrdering Facility: [facility] Address: [address] [id number] Performed By: #### 2 4323-8, 2776-02, ####[facility]ATORYCLIA [id number] [place] [address] [place] Creatinine and Glomerular filtration rate.predicted panel (S/P/Bld) 106 mL/min/1.73m??? Normal >=60 [facility] Comment on above: Order Comment: [facility] Type: BLOOD SPECIMENOrdering Facility: [facility] Address: [address] [place], [place] [address] Result Comment: Jessica mated Glomerular Filtration Rate [...] GFR. Performed By: #### 2 4323-8, 2776-02, ####[facility]ATORYCLIA [id number] [place] [address] [place] Glucose [Mass/Vol] 84 mg/dL Normal 74-99 [facility] Comment on above: Order Comment: Geraldo [facility] Type: BLOOD SPECIMENOrdering Facility: [facility] Address: [address] [id number] Result Comment: The [place] [employer] (ADA) provides guidance for cutoff [...] Standards of Medical Care in Diabetes 2016, [place] [employer]. Diabetes Care. 2016.39(Suppl 1). Performed By: #### 2 4323-8, 2776-02, ####[facility]ATORYCLIA [id number] [place] [address] [place] Potassium [Moles/Vol] 4.1 mmol/L Normal 3.7-5.1 [facility] Comment on above: Order Comment: Speci men Type: BLOOD SPECIMENOrdering Facility: [facility] Address: [address] [place] [address] Performed By: #### 2 4323-8, 2776-02, ####[facility]ITALCLIA [id number] [place] [address] [place] Protein [Mass/Vol] 5.2 g/dL Low 6.3-8.0 [facility] Comment on above: Order Comment: Lyssai men Type: BLOOD SPECIMENOrdering Facility: [facility] Address: [address] [place] [address] Performed By: #### 2 4323-8, 2776-02, ####[facility] [id number] [place] [address] [place] Sodium [Moles/Vol] 138 mmol/L Normal 136-144 [facility] Comment on above: Order Comment: Lyssai men Type: BLOOD SPECIMENOrdering Facility: [facility] Address: [address] [place] [address] Performed By: #### 2 4323-8, 2776-02, ####[facility]ATORYCLIA [id number] [place] [address] [place] Urea nitrogen [Mass/Vol] 7 mg/dL Normal 7-21 [facility] Comment on above: Order Comment: Speci men Type: BLOOD SPECIMENOrdering Facility: [facility] Address: [address] [place], [place] [address] Performed By: #### 2 4323-8, 2777-, ####[facility] [id number] [place] [address] [place] Formson 10-28-2022 Forms [id number] E6#1.00CD:127 Normal [facility] Magnesium [facility] Magnesium [Mass/Vol] 1.9 mg/dL Normal 1.7-2.3 [facility] Comment on above: Order Comment: Speci men Type: BLOOD SPECIMENOrdering Facility: [facility] Address: [address] [place] [address] Performed By: #### 2 4323-8, 27708-15, ####[facility] [id number] [place] [address] [place] Phosphate SerPl-mCncon 10-28 Phosphate [Mass/Vol] 3.2 mg/dL Normal 2.7-4.8 [facility] Comment on above: Order Comment: Speci men Type: BLOOD SPECIMENOrdering Facility: [facility] Address: [address] [place] [address] Performed By: #### 2 4323-8, 27708-15, ####[facility] [id number] [place] [address] [place] ANES POSTPROC EVALon 023 ANES POSTPROC EVAL Normal [facility] ANES PRE-OPon 10-27-2022 ANES PRE-OP Normal [facility] CBC panel Auto (Bld)on 10-27 Erythrocyte distribution width (RBC) [Ratio] 13.3 % Normal 11.5-15.0 [facility] Comment on above: Order Comment: Speci men Type: BLOOD SPECIMENOrdering Facility: [facility] Address: [address] [address] Performed By: #### 5 8410-2 ####[facility] [id number] [place] [address] [place] Hematocrit (Bld) [Volume fraction] 33.6 % Low 36.0-46.0 [facility] Comment on above: Order Comment: Speci men Type: BLOOD SPECIMENOrdering Facility: [facility] Address: [address] [address] Performed By: #### 5 8410-2 ####[facility] [id number] [place] [address] [place] Hemoglobin (Bld) [Mass/Vol] 10.9 g/dL Low 11.5-15.5 [facility] Comment on above: Order Comment: Speci men Type: BLOOD SPECIMENOrdering Facility: [facility] Address: [address] [address] Performed By: #### 5 8410-2 ####[facility] [id number] [place] [address] [place] MCH (RBC) [Entitic mass] 30.5 pg Normal 26.0-34.0 [facility] Comment on above: Order Comment: Speci men Type: BLOOD SPECIMENOrdering Facility: [facility] Address: [address] [address] Performed By: #### 5 8410-2 ####[facility] [id number] [address] [place] MCHC (RBC) [Mass/Vol] 32.4 g/dL Normal 30.5-36.0 [facility] Comment on above: Order Comment: Speci men Type: BLOOD SPECIMENOrdering Facility: [facility] Address: [address] [address] Performed By: #### 5 8410-2 ####[facility] [id number] [place] [address] [place] MCV (RBC) [Entitic vol] 94.1 fL Normal 80.0-100.0 [facility] Comment on above: Order Comment: Speci men Type: BLOOD SPECIMENOrdering Facility: [facility] Address: [address] [address] Performed By: #### 5 8410-2 ####[facility]ORYCLIA [id number] [place] [address] [place] Nucleated RBC (Bld) [#/Vol] 10*3/uL Normal <0.01 [facility] Comment on above: Order Comment: Speci men Type: BLOOD SPECIMENOrdering Facility: [facility] Address: [address] [address] Performed By: #### 5 8410-2 ####[facility] [id number] [place] [address] [place] Platelet mean volume (Bld) [Entitic vol] 11.7 fL Normal 9.0-12.7 [facility] Comment on above: Order Comment: Speci men Type: BLOOD SPECIMENOrdering Facility: [facility] Address: [address] [address] Performed By: #### 5 8410-2 ####[facility] [id number] [place] [address] [place] Platelets (Bld) [#/Vol] 160 10*3/uL Normal 150-400 [facility] Comment on above: Order Comment: Speci men Type: BLOOD SPECIMENOrdering Facility: [facility] Address: [address] Performed By: #### 5 8410-2 ####[facility] [id number] [place] [address] [place] RBC (Bld) [#/Vol] 3.57 10*6/uL Low 3.90-5.20 [facility] Comment on above: Order Comment: Speci men Type: BLOOD SPECIMENOrdering Facility: [facility] Address: [address] Performed By: #### 5 8410-2 ####[facility] [id number] [place] [address] [place] WBC (Bld) [#/Vol] 3.53 10*3/uL Low 3.70-11.00 [facility] Comment on above: Order Comment: Speci men Type: BLOOD SPECIMENOrdering Facility: [facility] Address: [address] Performed By: #### 5 8410-2 ####[facility] [id number] [place] [address] [place] CONSULT PROGon 10-27-2022 CONSULT PROG Normal [facility] CONS[facility] PROG Normal [facility] Comprehensive metabolic 2000 panelon 10-27-2022 Albumin [Mass/Vol] 3.3 g/dL Low 3.9-4.9 [facility] Comment on above: Order Comment: Speci men Type: BLOOD SPECIMENOrdering Facility: [facility] Address: [address] Performed By: #### 2 4323-8, 27708-15, ####[facility] [id number] [place] [address] [place] ALP [Catalytic activity/Vol] 52 U/L Normal 34-123 [facility] Comment on above: Order Comment: Speci men Type: BLOOD SPECIMENOrdering Facility: [facility] Address: [address] Performed By: #### 2 4323-8, 2777-1, ####[facility] [id number] [place] [address] [place] ALT [Catalytic activity/Vol] 14 U/L Normal 7-38 [facility] Comment on above: Order Comment: Speci men Type: BLOOD SPECIMENOrdering Facility: [facility] Address: [address] Performed By: #### 2 4323-8, 27708-15, ####[facility]ORYCLIA [id number] [place] [address] [place] Anion gap [Moles/Vol] 8 mmol/L Low 9-18 [facility] Comment on above: Order Comment: Speci men Type: BLOOD SPECIMENOrdering Facility: [facility] Address: [address] [place] [address] Performed By: #### 2 4323-8, 27708-15, ####[facility]ITALCLIA [id number] [place] [address] [place] AST [Catalytic activity/Vol] 28 U/L Normal 13-35 [facility] Comment on above: Order Comment: Speci men Type: BLOOD SPECIMENOrdering Facility: [facility] Address: [address] [place] [address] Performed By: #### 2 4323-8, 2776-02, ####[facility] [id number] [place] [address] [place] Bilirubin [Mass/Vol] 0.2 mg/dL Normal 0.2-1.3 [facility] Comment on above: Order Comment: Speci men Type: BLOOD SPECIMENOrdering Facility: [facility] Address: [address] [place] [address] Performed By: #### 2 4323-8, 2776-02, ####[facility] [id number] [place] [address] [place] Calcium [Mass/Vol] 8.1 mg/dL Low 8.5-10.2 [facility] Comment on above: Order Comment: Speci men Type: BLOOD SPECIMENOrdering Facility: [facility] Address: [address] [place] [address] Performed By: #### 2 4323-8, 27708-15, ####[facility]ORYCLIA [id number] [place] [address] [place] Chloride [Moles/Vol] 110 mmol/L High 97-105 [facility] Comment on above: Order Comment: Speci men Type: BLOOD SPECIMENOrdering Facility: [facility] Address: [address] [id number] Performed By: #### 2 4323-8, 2777-, ####[facility]ATORYCLIA [id number] [place] [address] [place] CO2 [Moles/Vol] 22 mmol/L Normal 22-30 [facility] Comment on above: Order Comment: Speci men Type: BLOOD SPECIMENOrdering Facility: [facility] Address: [address] [facility] [address] Performed By: #### 2 4323-8, 27708-15, ####[facility] [id number] [place] [address] [place] Creatinine [Mass/Vol] 0.70 mg/dL Normal 0.58-0.96 [facility] Comment on above: Order Comment: Speci men Type: BLOOD SPECIMENOrdering Facility: [facility] Address: [address] H[facility] [address] Performed By: #### 2 4323-8, 2776-02, ####[facility] [id number] [place] [address] [facility] Creatinine and Glomerular filtration rate.predicted panel (S/P/Bld) 117 mL/min/1.73m??? Normal >=60 [facility] Comment on above: Order Comment: Speci men Type: BLOOD SPECIMENOrdering Facility: [facility] Address: [address] [facility] [address] Result Comment: Jessica mated Glomerular Filtration [...] GFR. Performed By: #### 2 4323-8, 2777-, ####[facility] [id number] [place] [address] [place] Glucose [Mass/Vol] 89 mg/dL Normal 74-99 [facility] Comment on above: Order Comment: Geraldo marrero Type: BLOOD SPECIMENOrdering Facility: [facility] Address: [address] [place], [place] [id number] Result Comment: The [place] Diabetes Association (ADA) provides guidance for cutoff [...] Standards of Medical Care in Diabetes 2016, [place] [employer]. Diabetes Care. 2016.39(Suppl 1). Performed By: #### 2 4323-8, 2776-02, ####[facility] [id number] [place] [address] [place] Potassium [Moles/Vol] 4.1 mmol/L Normal 3.7-5.1 [facility] Comment on above: Order Comment: Geraldo marrero Type: BLOOD SPECIMENOrdering Facility: [facility] Address: [address] [place] [address] Performed By: #### 2 4323-8, 2777, ####[facility] [id number] [place] [address] [place] Protein [Mass/Vol] 5.0 g/dL Low 6.3-8.0 [facility] Comment on above: Order Comment: Geraldo marrero Type: BLOOD SPECIMENOrdering Facility: [facility] Address: [address] [place] [address] Performed By: #### 2 4323-8, 2777-, ####[facility] [id number] [place] [address] [place] Sodium [Moles/Vol] 140 mmol/L Normal 136-144 [facility] Comment on above: Order Comment: Speci men Type: BLOOD SPECIMENOrdering Facility: [facility] Address: [address] [place] [address] Performed By: #### 2 4323-8, 27708-15, ####[facility] [id number] [place] [address] [place] Urea nitrogen [Mass/Vol] 5 mg/dL Low 7-21 [facility] Comment on above: Order Comment: Speci men Type: BLOOD SPECIMENOrdering Facility: [facility] Address: [address] [place], [place] [address] Performed By: #### 2 4323-8, 27708-15, ####[facility] [id number] [place] [id number] [place] Magnesium SerPl-ncon 10-27 Magnesium [Mass/Vol] 1.9 mg/dL Normal 1.7-2.3 [facility] Comment on above: Order Comment: Speci men Type: BLOOD SPECIMENOrdering Facility: [facility] Address: [address] [place], [place] [id number] Performed By: #### 2 4323-8, 27708-15, ####[facility] [id number] [place] [address] [place] NUTRITIONon 10-27-2022 NUTRITION Normal [facility] Phosphate SerPl-mCncon 10-27 Phosphate [Mass/Vol] 3.1 mg/dL Normal 2.7-4.8 [facility] Comment on above: Order Comment: Speci men Type: BLOOD SPECIMENOrdering Facility: [facility] Address: [address] [address] Performed By: #### 2 4323-8, 2777-1, 84820-5 ####[facility] [id number] [place] [address] [place] Upper GI endoscopyon 023 Upper GI endoscopy Normal [facility] CASE MGT INIT ASSESon 2022 CASE MGT INIT ASS Normal [facility] CBC panel Auto (Bld)on 10-26 Erythrocyte distribution width (RBC) [Ratio] 13.2 % Normal 11.5-15.0 [facility] Comment on above: Order Comment: Speci men Type: BLOOD SPECIMENOrdering Facility: [facility] Address: [address] [place] [address] Performed By: #### 5 8410-2 ####[facility] [id number] [place] [address] [place] Hematocrit (Bld) [Volume fraction] 34.9 % Low 36.0-46.0 [facility] Comment on above: Order Comment: Speci men Type: BLOOD SPECIMENOrdering Facility: [facility] Address: [address] [place] [address] Performed By: #### 5 8410-2 ####[facility] [id number] [place] [address] [place] Hemoglobin (Bld) [Mass/Vol] 11.1 g/dL Low 11.5-15.5 [facility] Comment on above: Order Comment: Speci men Type: BLOOD SPECIMENOrdering Facility: [facility] Address: [address] [place] [address] Performed By: #### 5 8410-2 ####[facility] [id number] [place] [address] [place] MCH (RBC) [Entitic mass] 30.9 pg Normal 26.0-34.0 [facility] Comment on above: Order Comment: Speci men Type: BLOOD SPECIMENOrdering Facility: [facility] Address: [address] [address] Performed By: #### 5 8410-2 ####[facility] [id number] [place] [id number] [place] MCHC (RBC) [Mass/Vol] 31.8 g/dL Normal 30.5-36.0 [facility] Comment on above: Order Comment: Speci men Type: BLOOD SPECIMENOrdering Facility: [facility] Address: [address] [address] Performed By: #### 5 8410-2 ####[facility] [id number] [place] [address] [place] MCV (RBC) [Entitic vol] 97.2 fL Normal 80.0-100.0 [facility] Comment on above: Order Comment: Speci men Type: BLOOD SPECIMENOrdering Facility: [facility] Address: [address] [address] Performed By: #### 5 8410-2 ####[facility] [id number] [place] [address] [place] Nucleated RBC (Bld) [#/Vol] 10*3/uL Normal <0.01 [facility] Comment on above: Order Comment: Speci men Type: BLOOD SPECIMENOrdering Facility: [facility] Address: [address] [address] Performed By: #### 5 8410-2 ####[facility] [id number] [place] [address] [place] Platelet mean volume (Bld) [Entitic vol] 11.9 fL Normal 9.0-12.7 [facility] Comment on above: Order Comment: Speci men Type: BLOOD SPECIMENOrdering Facility: [facility] Address: [address] [place] [address] Performed By: #### 5 8410-2 ####[facility] [id number] [place] [id number] [place] Platelets (Bld) [#/Vol] 181 10*3/uL Normal 150-400 [facility] Comment on above: Order Comment: Speci men Type: BLOOD SPECIMENOrdering Facility: [facility] Address: [address] [address] Performed By: #### 5 8410-2 ####[facility]ORATORYCLIA [id number] [place] [address] [facility] RBC (Bld) [#/Vol] 3.59 10*6/uL Low 3.90-5.20 [facility] Comment on above: Order Comment: Speci men Type: BLOOD SPECIMENOrdering Facility: [facility] Address: [address] Performed By: #### 5 8410-2 ####[facility]ATORYCLIA [id number] [place] [address] [facility] WBC (Bld) [#/Vol] 3.44 10*3/uL Low 3.70-11.00 [facility] Comment on above: Order Comment: Speci men Type: BLOOD SPECIMENOrdering Facility: [facility] Address: [address] Performed By: #### 5 8410-2 ####[facility]ITALCLIA [id number] [place] [address] [facility] [place] CONSULTon 10-26-2022 CONSULT Normal [facility] Comprehensive metabolic 2000 panelon 10-26-2022 Albumin [Mass/Vol] 3.3 g/dL Low 3.9-4.9 [facility] Comment on above: Order Comment: Speci men Type: BLOOD SPECIMENOrdering Facility: [facility] Address: [address] [place] [address] Performed By: #### 2 4323-8, 68262-6, 3016-3, 2777-1 ####[facility]ORATORYCLIA [id number] [place] [address] [place] ALP [Catalytic activity/Vol] 52 U/L Normal 34-123 [facility] Comment on above: Order Comment: Speci men Type: BLOOD SPECIMENOrdering Facility: [facility] Address: [address] [address] Performed By: #### 2 4323-8, 25530-0, 6-3, 2776- ####[facility]ORATORYCLIA [id number] [place] [address] [place] ALT [Catalytic activity/Vol] 15 U/L Normal 7-38 [facility] Comment on above: Order Comment: Speci men Type: BLOOD SPECIMENOrdering Facility: [facility] Address: [address] [address] Performed By: #### 2 4323-8, 58818-6, 3015-3, 2776- ####[facility]ATORYCLIA [id number] [place] [address] [place] Anion gap [Moles/Vol] 9 mmol/L Normal 9-18 [facility] Comment on above: Order Comment: Speci men Type: BLOOD SPECIMENOrdering Facility: [facility] Address: [address] [address] Performed By: #### 2 4323-8, , 3, 2776-02 ####[facility]ORATORYCLIA [id number] [place] [address] [place] AST [Catalytic activity/Vol] 30 U/L Normal 13-35 [facility] Comment on above: Order Comment: Speci men Type: BLOOD SPECIMENOrdering Facility: [facility] Address: [address] Performed By: #### 2 4323-8, 01902-3, 3, 2776- ####[facility]ATORYCLIA [id number] [place] [address] [place] Bilirubin [Mass/Vol] 0.4 mg/dL Normal 0.2-1.3 [facility] Comment on above: Order Comment: Speci men Type: BLOOD SPECIMENOrdering Facility: [facility] Address: [address] [address] Performed By: #### 2 4323-8, 50413-4, 6-3, 2776- ####[facility]ITALIA [id number] [place] [address] [place] Calcium [Mass/Vol] 8.3 mg/dL Low 8.5-10.2 [facility] Comment on above: Order Comment: Speci men Type: BLOOD SPECIMENOrdering Facility: [facility] Address: [address] [address] Performed By: #### 2 4323-8, 25998-7, 3015-3, 2776- ####[facility]OSPITALIA [id number] [place] [address] [place] Chloride [Moles/Vol] 110 mmol/L High 97-105 [facility] Comment on above: Order Comment: Speci men Type: BLOOD SPECIMENOrdering Facility: [facility] Address: [address] [address] Performed By: #### 2 4323-8, 82865-9, 3015-3, 2776- ####[facility]OSPITALIA [id number] [place] [address] [place] CO2 [Moles/Vol] 20 mmol/L Low 22-30 [facility] Comment on above: Order Comment: Speci men Type: BLOOD SPECIMENOrdering Facility: [facility] Address: [address] Performed By: #### 2 4323-8, 90452-8, 3015-3, 2776- ####[facility]PITALIA [id number] [place] [address] [place] Creatinine [Mass/Vol] 0.73 mg/dL Normal 0.58-0.96 [facility] Comment on above: Order Comment: Speci men Type: BLOOD SPECIMENOrdering Facility: [facility] Address: [address] [address] Performed By: #### 2 4323-8, 73648-9, 3016-3, 2777-1 ####[facility]ATORYCLIA [id number] [place] [address] [place] Creatinine and Glomerular filtration rate.predicted panel (S/P/Bld) 112 mL/min/1.73m??? Normal >=60 [facility] Comment on above: Order Comment: Geraldo marrero Type: BLOOD SPECIMENOrdering Facility: [facility] Address: [address] [place] [phone] Result Comment: Jessica mated Glomerular Filtration Rate [...] actual GFR. Performed By: #### 2 4323-8, 93248-0, 6-3, 2777- ####[facility]ORATORYCLIA [id number] [place] [address] [place] Glucose [Mass/Vol] 83 mg/dL Normal 74-99 [facility] Comment on above: Order Comment: Geraldo marrero Type: BLOOD SPECIMENOrdering Facility: [facility] Address: [address] [place] [phone] Result Comment: The [place] Diabetes Association (ADA) provides guidance for cutoff [...] Standards of Medical Care in Diabetes 2016, [place] [employer] Association. Diabetes Care. 2016.39(Suppl 1). Performed By: #### 2 4323-8, 29846-0, 6-3, 2776-1 ####[facility]ORATORYCLIA [id number] [place] [address] [place] Potassium [Moles/Vol] 4.2 mmol/L Normal 3.7-5.1 [facility] Comment on above: Order Comment: Speci men Type: BLOOD SPECIMENOrdering Facility: [facility] Address: [address] [place] [address] Performed By: #### 2 4323-8, 54980-3, 6-3, 2776- ####[facility]PITALIA [id number] [place] [address] [place] Protein [Mass/Vol] 5.0 g/dL Low 6.3-8.0 [facility] Comment on above: Order Comment: Speci men Type: BLOOD SPECIMENOrdering Facility: [facility] Address: [address] [place] [address] Performed By: #### 2 4323-8, 87812-0, 3015-3, 2776- ####[facility]PITALIA [id number] [place] [address] [place] Sodium [Moles/Vol] 139 mmol/L Normal 136-144 [facility] Comment on above: Order Comment: Speci men Type: BLOOD SPECIMENOrdering Facility: [facility] Address: [address] [place] [address] Performed By: #### 2 4323-8, 42081-5, 3015-3, 2776- ####[facility]PITALIA [id number] [place] [address] [place] Urea nitrogen [Mass/Vol] 5 mg/dL Low 7-21 [facility] Comment on above: Order Comment: Speci men Type: BLOOD SPECIMENOrdering Facility: [facility] Address: [address] [place] [address] Performed By: #### 2 4323-8, 73387-7, 6-3, 2776-1 ####[facility] LABORATORYIA [id number] [place] [address] [place] ED Note-Physicianon 10-27-19 ED Note-Physician Prabhakar [facility] Comment on above: Result Comment: Elec tronically Signed By: Lonnie Rios PA-C\.br\Date and Time Signed: 10/20/22 13:50 EDT\.br\Electronically Co-Signed By: Earnest Jett DO\.br\Date and Time Co-Signed: 10/26/22 07:01 EDT Magnesium SerPl-mCncon 10-26 Magnesium [Mass/Vol] 1.9 mg/dL Normal 1.7-2.3 [facility] Comment on above: Order Comment: Specmichael marrero Type: BLOOD SPECIMENOrdering Facility: [facility] Address: [address] [place], [place] [address] Performed By: #### 2 4323-8, 97798-8, 3016-3, 2777-1 ####[facility]OSPITALIA [id number] [place] [address] [place] Phosphate SerPl-mCncon 10-26 Phosphate [Mass/Vol] 4.3 mg/dL Normal 2.7-4.8 [facility] Comment on above: Order Comment: Geraldo marrero Type: BLOOD SPECIMENOrdering Facility: [facility] Address: [address] [place], [place] [address] Performed By: #### 2 4323-8, 58509-2, 3016-3, 2777-1 ####[facility]PITALIA [id number] [place] [address] [place] TSH SerPl-aCncon 10-26-2022 TSH Qn 0.712 m[IU]/L Normal 0.270-4.200 [facility] Comment on above: Order Comment: Geraldo marrero Type: BLOOD SPECIMENOrdering Facility: [facility] Address: [address] [place], [place] [id number] Result Comment: If t he patient is , TSH reference range varies by gestational period:First Trimester (weeks 9-12): 0.180-2.990 mIU/LSecond Trimester: 0.110-3.980 mIU/LThird Trimester: 0.480-4.710 mIU/LDserafin Johnson et al. A Practical Approach for the Verifications and Determination of Site- and Trimester-Specific Reference Intervals for Thyroid Function tests in . Thyroid, 2019:29:3:412-420. Claus E, et al. 2017 Guidelines of the [place] Thyroid Association for the Diagnosis and Management of Thyroid Disease during and the . Thyroid, 2017:27:3:315-389. Performed By: #### 2 4323-8, 70407-0, 3016-3, 2777-1 ####[facility]ATORYCLIA [id number] [place] [address] [place] CBC W Auto Differential pane l (Bld)on 10-25-2022 Basophils (Bld) [#/Vol] 0.04 10*3/uL Normal <0.11 [facility] Comment on above: Order Comment: Speci men Type: BLOOD SPECIMENOrdering Facility: [facility] Address: [address] [address] Performed By: #### 5 7021-8 ####[facility]PITALIA [id number] [place] [address] [place] Basophils/100 WBC (Bld) 1.1 % Normal [facility] Comment on above: Order Comment: Speci men Type: BLOOD SPECIMENOrdering Facility: [facility] Address: [address] [address] Performed By: #### 5 7021-8 ####[facility] LABORATORYIA [id number] [address] STATES OF [facility] Differential cell count method Nom (Bld) Auto Normal [facility] Comment on above: Order Comment: Speci men Type: BLOOD SPECIMENOrdering Facility: [facility] Address: [address] [address] Performed By: #### 5 7021-8 ####[facility]ORATORYCLIA [id number] [place] [address] [place] Eosinophils (Bld) [#/Vol] 0.07 10*3/uL Normal <0.46 [facility] Comment on above: Order Comment: Speci men Type: BLOOD SPECIMENOrdering Facility: [facility] Address: [address] [address] Performed By: #### 5 7021-8 ####[facility]ORATORYCLIA [id number] [place] [address] [place] Eosinophils/100 WBC (Bld) 1.9 % Normal [facility] Comment on above: Order Comment: Speci men Type: BLOOD SPECIMENOrdering Facility: [facility] Address: [address] [place] [address] Performed By: #### 5 7021-8 ####[facility]ORATORYIA [id number] [place] [address] [place] Erythrocyte distribution width (RBC) [Ratio] 13.0 % Normal 11.5-15.0 [facility] Comment on above: Order Comment: Speci men Type: BLOOD SPECIMENOrdering Facility: [facility] Address: [address] [place] [address] Performed By: #### 5 7021-8 ####[facility]ORATORYIA [id number] [address] [place] Hematocrit (Bld) [Volume fraction] 39.5 % Normal 36.0-46.0 [facility] Comment on above: Order Comment: Speci men Type: BLOOD SPECIMENOrdering Facility: [facility] Address: [address] [place] [address] Performed By: #### 5 7021-8 ####[facility]ORATORYIA [id number] [place] [address] [place] Hemoglobin (Bld) [Mass/Vol] 13.1 g/dL Normal 11.5-15.5 [facility] Comment on above: Order Comment: Speci men Type: BLOOD SPECIMENOrdering Facility: [facility] Address: [address] [address] Performed By: #### 5 7021-8 ####[facility] LABORATORYIA [id number] [place] [id number] [place] Immature granulocytes (Bld) [#/Vol] 10*3/uL Normal <0.10 [facility] Comment on above: Order Comment: Speci men Type: BLOOD SPECIMENOrdering Facility: [facility] Address: [address] [address] Performed By: #### 5 7021-8 ####[facility]ORATORYIA [id number] [address] [place] Immature granulocytes/100 WBC (Bld) 0.3 % Normal [facility] Comment on above: Order Comment: Speci men Type: BLOOD SPECIMENOrdering Facility: [facility] Address: [address] [address] Performed By: #### 5 7021-8 ####[facility]ITALIA [id number] [place] [address] [place] Lymphocytes (Bld) [#/Vol] 1.11 10*3/uL Normal 1.00-4.00 [facility] Comment on above: Order Comment: Speci men Type: BLOOD SPECIMENOrdering Facility: [facility] Address: [address] [address] Performed By: #### 5 7021-8 ####[facility] LABORATORYIA [id number] [place] [address] [place] Lymphocytes/100 WBC (Bld) 29.4 % Normal [facility] Comment on above: Order Comment: Speci men Type: BLOOD SPECIMENOrdering Facility: [facility] Address: [address] [place] [address] Performed By: #### 5 7021-8 ####[facility]ORATORYIA [id number] [place] [address] [place] MCH (RBC) [Entitic mass] 30.5 pg Normal 26.0-34.0 [facility] Comment on above: Order Comment: Speci men Type: BLOOD SPECIMENOrdering Facility: [facility] Address: [address] [address] Performed By: #### 5 7021-8 ####[facility] [id number] [place] [address] [place] MCHC (RBC) [Mass/Vol] 33.2 g/dL Normal 30.5-36.0 [facility] Comment on above: Order Comment: Speci men Type: BLOOD SPECIMENOrdering Facility: [facility] Address: [address] [address] Performed By: #### 5 7021-8 ####[facility] [id number] [place] [address] [place] MCV (RBC) [Entitic vol] 92.1 fL Normal 80.0-100.0 [facility] Comment on above: Order Comment: Speci men Type: BLOOD SPECIMENOrdering Facility: [facility] Address: [address] [address] Performed By: #### 5 7021-8 ####[facility] [id number] [place] [address] [place] Monocytes (Bld) [#/Vol] 0.27 10*3/uL Normal <0.87 [facility] Comment on above: Order Comment: Speci men Type: BLOOD SPECIMENOrdering Facility: [facility] Address: [address] [address] Performed By: #### 5 7021-8 ####[facility]IA [id number] [address] [place] Monocytes/100 WBC (Bld) 7.1 % Normal [facility] Comment on above: Order Comment: Speci men Type: BLOOD SPECIMENOrdering Facility: [facility] Address: [address] [address] Performed By: #### 5 7021-8 ####[facility] LABORATORYIA [id number] [place] [address] [place] Neutrophils (Bld) [#/Vol] 2.28 10*3/uL Normal 1.45-7.50 [facility] Comment on above: Order Comment: Speci men Type: BLOOD SPECIMENOrdering Facility: [facility] Address: [address] [address] Performed By: #### 5 7021-8 ####[facility]ORATORYCLIA [id number] [place] [address] [place] Neutrophils/100 WBC (Bld) 60.2 % Normal [facility] Comment on above: Order Comment: Speci men Type: BLOOD SPECIMENOrdering Facility: [facility] Address: [address] [place] [address] Performed By: #### 5 7021-8 ####[facility]ORATORYCLIA [id number] [place] [address] [place] Nucleated RBC (Bld) [#/Vol] 10*3/uL Normal <0.01 [facility] Comment on above: Order Comment: Speci men Type: BLOOD SPECIMENOrdering Facility: [facility] Address: [address] [place] [address] Performed By: #### 5 7021-8 ####[facility]ATORYIA [id number] [place] [address] [place] Nucleated RBC/100 WBC (Bld) [Ratio] 0.0 /100 WBC Normal [facility] Comment on above: Order Comment: Speci men Type: BLOOD SPECIMENOrdering Facility: [facility] Address: [address] [address] Performed By: #### 5 7021-8 ####[facility]ATORYIA [id number] [place] [address] [place] Platelet mean volume (Bld) [Entitic vol] 11.4 fL Normal 9.0-12.7 [facility] Comment on above: Order Comment: Speci men Type: BLOOD SPECIMENOrdering Facility: [facility] Address: [address] Performed By: #### 5 7021-8 ####[facility]ITALIA [id number] [place] [address] [facility] [place] Platelets (Bld) [#/Vol] 208 10*3/uL Normal 150-400 [facility] Comment on above: Order Comment: Speci men Type: BLOOD SPECIMENOrdering Facility: [facility] Address: [address] [place] [address] Performed By: #### 5 7021-8 ####[facility]IA [id number] [place] [address] [place] RBC (Bld) [#/Vol] 4.29 10*6/uL Normal 3.90-5.20 [facility] Comment on above: Order Comment: Speci men Type: BLOOD SPECIMENOrdering Facility: [facility] Address: [address] [place] [address] Performed By: #### 5 7021-8 ####[facility] [id number] [place] [address] [place] WBC (Bld) [#/Vol] 3.78 10*3/uL Normal 3.70-11.00 [facility] Comment on above: Order Comment: Speci men Type: BLOOD SPECIMENOrdering Facility: [facility] Address: [address] [place] [address] Performed By: #### 5 7021-8 ####[facility]IA [id number] [place] [id number] [place] CT ABD/PEL W IVCONon 023 CT ABD/PEL W IVCON Normal [facility] Comprehensive metabolic 2000 panelon 10-25-2022 Albumin [Mass/Vol] 4.2 g/dL Normal 3.9-4.9 [facility] Comment on above: Order Comment: Speci men Type: BLOOD SPECIMENOrdering Facility: [facility] Address: [address] [place] [address] Performed By: #### 1 9123-9, 49169-7, 0-3 ####[facility]ORATORYCLIA [id number] [place] [address] [place] ALP [Catalytic activity/Vol] 70 U/L Normal 34-123 [facility] Comment on above: Order Comment: Speci men Type: BLOOD SPECIMENOrdering Facility: [facility] Address: [address] [place] [address] Performed By: #### 1 9123-9, 10337-3, 0-3 ####[facility]ATORYCLIA [id number] [place] [address] [place] ALT [Catalytic activity/Vol] 21 U/L Normal 7-38 [facility] Comment on above: Order Comment: Speci men Type: BLOOD SPECIMENOrdering Facility: [facility] Address: [address] [place] [address] Performed By: #### 1 9123-9, 42914-8, 0-3 ####[facility] [id number] [place] [address] [place] Anion gap [Moles/Vol] 10 mmol/L Normal 9-18 [facility] Comment on above: Order Comment: Speci men Type: BLOOD SPECIMENOrdering Facility: [facility] Address: [address] [place] [address] Performed By: #### 1 9123-9, 35012-3, 0-3 ####[facility]ATORYCLIA [id number] [place] [address] [place] AST [Catalytic activity/Vol] 38 U/L High 13-35 [facility] Comment on above: Order Comment: Speci men Type: BLOOD SPECIMENOrdering Facility: [facility] Address: [address] [place] [address] Performed By: #### 1 9123-9, 34485-6, 0-3 ####[facility]ORYIA [id number] [place] [address] [place] Bilirubin [Mass/Vol] 0.3 mg/dL Normal 0.2-1.3 [facility] Comment on above: Order Comment: Speci men Type: BLOOD SPECIMENOrdering Facility: [facility] Address: [address] [place] [address] Performed By: #### 1 9123-9, 88649-1, 0-3 ####[facility]ATORYCLIA [id number] [place] [address] [place] Calcium [Mass/Vol] 8.8 mg/dL Normal 8.5-10.2 [facility] Comment on above: Order Comment: Speci men Type: BLOOD SPECIMENOrdering Facility: [facility] Address: [address] [place] [address] Performed By: #### 1 9123-9, 38101-8, 0-3 ####[facility]ORATORYCLIA [id number] [place] [address] [place] Chloride [Moles/Vol] 106 mmol/L High 97-105 [facility] Comment on above: Order Comment: Speci men Type: BLOOD SPECIMENOrdering Facility: [facility] Address: [address] [place] [address] Performed By: #### 1 9123-9, 40803-2, 3 ####[facility]ATORYCLIA [id number] [place] [address] [place] CO2 [Moles/Vol] 22 mmol/L Normal 22-30 [facility] ital Comment on above: Order Comment: Speci men Type: BLOOD SPECIMENOrdering Facility: [facility] Address: [address] [place], [place] [address] Performed By: #### 1 9123-9, 94628-5, 0-3 ####[facility]ATORYCLIA [id number] [place] [address] [place] Creatinine [Mass/Vol] 0.82 mg/dL Normal 0.58-0.96 [facility] Comment on above: Order Comment: Speci men Type: BLOOD SPECIMENOrdering Facility: [facility] Address: [facility] [place] [address] Performed By: #### 1 9123-9, 55007-9, 3040-3 ####[facility]ORATORYCLIA [id number] [place] [address] [place] Creatinine and Glomerular filtration rate.predicted panel (S/P/Bld) 97 mL/min/1.73m??? Normal >=60 [facility] Comment on above: Order Comment: Geraldo marrero Type: BLOOD SPECIMENOrdering Facility: [facility] Address: [address] [place] [address] Result Comment: Jessica mated Glomerular Filtration Rate [...] actual GFR. Performed By: #### 1 9123-9, 63174-7, 3040-3 ####[facility]ORATORYCLIA [id number] [facility] [id number] [place] Glucose [Mass/Vol] 85 mg/dL Normal 74-99 [facility] Comment on above: Order Comment: Geraldo marrero Type: BLOOD SPECIMENOrdering Facility: [facility] Address: [address] [place] [phone] Result Comment: The [place] Diabetes Association (ADA) provides guidance for cutoff [...] Standards of Medical Care in Diabetes 2016, [place] [employer]. Diabetes Care. 2016.39(Suppl 1). Performed By: #### 1 9123-9, 22469-3, 0-3 ####[facility]PITALCLIA [id number] [place] [address] [place] Potassium [Moles/Vol] 3.8 mmol/L Normal 3.7-5.1 [facility] Comment on above: Order Comment: Speci men Type: BLOOD SPECIMENOrdering Facility: [facility] Address: [address] [address] Performed By: #### 1 9123-9, 61735-1, 0-3 ####[facility] [id number] [place] [address] [place] Protein [Mass/Vol] 6.5 g/dL Normal 6.3-8.0 [facility] Comment on above: Order Comment: Speci men Type: BLOOD SPECIMENOrdering Facility: [facility] Address: [address] [address] Performed By: #### 1 9123-9, 77967-1, 0-3 ####[facility] [id number] [place] [address] [place] Sodium [Moles/Vol] 138 mmol/L Normal 136-144 [facility] Comment on above: Order Comment: Speci men Type: BLOOD SPECIMENOrdering Facility: [facility] Address: [address] [address] Performed By: #### 1 9123-9, 33206-1, 0-3 ####[facility] [id number] [place] [address] [place] Urea nitrogen [Mass/Vol] 7 mg/dL Normal 7-21 [facility] [facility] Comment on above: Order Comment: Speci men Type: BLOOD SPECIMENOrdering Facility: [facility] Address: [address] [address] Performed By: #### 1 9123-9, 00914-8, 3040-3 ####[facility]ATORYCLIA [id number] [place] [address] [place] D dimer FEU PPP-mCncon 10-25 Fibrin D-dimer FEU (PPP) [Mass/Vol] <190 Normal <500 [facility] Comment on above: Order Comment: Speci men Type: BLOOD SPECIMENOrdering Facility: [facility] Address: [address] [place] [address] Performed By: #### 4 8065-7 ####[facility]ORATORYCLIA [id number] [place] [address] [place] ECG COMPLETEon 10-25-2022 ECG COMPLETE Normal [facility] ED NOTEon 10-25-2022 ED NOTE HNO ID: [id number] Author: Anam Myers RN Service: ? Author Type: Registered Nurse Type: ED Notes Filed: 10/25/2022 8:19 AM Note Text: Pt unable to urinate sat this time. Aware urine sample is needed. Normal [facility] ED NOTE Normal [facility] ED PROV NOTEon 10-25-2022 ED PROV NOTE Normal [facility] HISTORY PHYSICALon HISTORY PHYSICAL Normal [facility] pital Lipase SerPl-cCncon 10-26-19 Lipase [Catalytic activity/Vol] 29 U/L Normal 16-61 [facility] Comment on above: Order Comment: Speci men Type: BLOOD SPECIMENOrdering Facility: [facility] Address: [address] [place], [place] [id number] Performed By: #### 1 9123-9, 36397-3, 3040-3 ####[facility]ITALIA [id number] [place] [address] [place] Magnesium SerPl-mCncon 10-25 Magnesium [Mass/Vol] 1.9 mg/dL Normal 1.7-2.3 [facility] Comment on above: Order Comment: Speci men Type: BLOOD SPECIMENOrdering Facility: [facility] Address: [address] [place], [place] [id number] Performed By: #### 1 9123-9, 54187-2, 3040-3 ####[facility] [id number] [place] [address] [place] NURSING PROGon 10-25-2022 NURSING PROG Normal [facility] Urinalysis complete panel (U )on 10-25-2022 Bilirubin Ql (U) Negative Normal Negative [facility] pital Comment on above: Order Comment: Speci men Type: URINE SPECIMENOrdering Facility: [facility] Address: [address] [place] [address] Performed By: #### 2 4356-8 ####[facility] [id number] [place] [address] [place] Clarity (Unsp spec) Clear Normal Clear [facility] Comment on above: Order Comment: Speci men Type: URINE SPECIMENOrdering Facility: [facility] Address: [address] [place] [address] Performed By: #### 2 4356-8 ####[facility] [id number] [place] [address] [place] Color (U) Colorless Normal yellow [facility] Comment on above: Order Comment: Speci men Type: URINE SPECIMENOrdering Facility: [facility] Address: [address] [place] [address] Performed By: #### 2 4356-8 ####[facility] [id number] [place] [address] [place] Epithelial cells LM.HPF (Urine sed) [#/Area] Few Normal [facility] Comment on above: Order Comment: Speci men Type: URINE SPECIMENOrdering Facility: [facility] Address: [address] [place] [address] Performed By: #### 2 4356-8 ####[facility] [id number] [place] [address] [place] Glucose Test strip (U) [Mass/Vol] Negative Normal Trace, Negative [facility] Comment on above: Order Comment: Speci men Type: URINE SPECIMENOrdering Facility: [facility] Address: [address] [address] Performed By: #### 2 4356-8 ####[facility] [id number] [place] [address] [place] Hemoglobin Ql (U) Negative Normal Negative, Trace [facility] Comment on above: Order Comment: Speci men Type: URINE SPECIMENOrdering Facility: [facility] Address: [address] [place] [address] Performed By: #### 2 4356-8 ####[facility] [id number] [place] [address] [place] Ketones Ql (U) Negative Normal Negative, Trace [facility] Comment on above: Order Comment: Speci men Type: URINE SPECIMENOrdering Facility: [facility] Address: [address] [place] [address] Performed By: #### 2 4356-8 ####[facility] [id number] [place] [address] [place] Leukocyte esterase Test strip Ql (U) Negative Normal Negative, 25 Patito/uL [facility] Comment on above: Order Comment: Speci men Type: URINE SPECIMENOrdering Facility: [facility] Address: [address] [place] [address] Performed By: #### 2 4356-8 ####[facility] [id number] [place] [address] [place] Nitrite Ql (U) Negative Normal Negative [facility] Comment on above: Order Comment: Speci men Type: URINE SPECIMENOrdering Facility: [facility] Address: [address] [place] [address] Performed By: #### 2 4356-8 ####[facility] [id number] [place] [address] [place] pH (U) 6.5 [pH] Normal 5.0-8.0 [facility] Comment on above: Order Comment: Speci men Type: URINE SPECIMENOrdering Facility: [facility] Address: [address] [address] Performed By: #### 2 4356-8 ####[facility] [id number] [address] [id number] [place] Protein (U) [Mass/Vol] Negative Normal Trace, Negative [facility] Comment on above: Order Comment: Speci men Type: URINE SPECIMENOrdering Facility: [facility] Address: [address] [place] [address] Performed By: #### 2 4356-8 ####[facility] [id number] [place] [address] [place] RBC LM.HPF (Urine sed) [#/Area] 0-3 /HPF Normal 0-3 /HPF [facility] Comment on above: Order Comment: Speci men Type: URINE SPECIMENOrdering Facility: [facility] Address: [address] [place] [address] Performed By: #### 2 4356-8 ####[facility] [id number] [place] [address] [place] Specific gravity (U) [Rel density] 1.041 High 1.005-1.030 [facility] Comment on above: Order Comment: Speci men Type: URINE SPECIMENOrdering Facility: [facility] Address: [address] [place] [address] Performed By: #### 2 4356-8 ####[facility]ITALIA [id number] [place] [address] [place] Urobilinogen Ql (U) Normal Normal Negative [facility] Comment on above: Order Comment: Speci men Type: URINE SPECIMENOrdering Facility: [facility] Address: [address] [place] [address] Performed By: #### 2 4356-8 ####[facility] [id number] [place] [address] [place] WBC LM.HPF (Urine sed) [#/Area] 0-5 /HPF Normal 0-5 /HPF [facility] Comment on above: Order Comment: Speci men Type: URINE SPECIMENOrdering Facility: [facility] Address: [place] [address] Performed By: #### 2 4356-8 ####[facility] LABORATORYCLIA [id number] [place] [address] [place] XR ABDOMEN (2 VIEWS)on [...] Kuldip Laughlin MD 10/23/22 Final result Normal [facility] CBC with Diffon 10-23-2022 Abs. Basophil 0.03 k/uL Normal 0.00-0.20 [facility] Comment on above: Performed By: #### L JUDITH BROWN, CDP #### [facility] [address] [place] [address] Veterinary Radiologist: Baldomero Espinoza MD Abs.Imm.Granulocyte <0.03 Normal 0.00-0.30 [facility] Comment on above: Performed By: #### L JUDITH BROWN, CDP #### [facility] [address] [place] [address] Veterinary Radiologist: Baldomero Espinoza MD Abs.Neutrophil (Seg) 3.51 k/uL Normal 1.50-8.10 [facility] Comment on above: Performed By: #### L JUDITH BROWN, CDP #### [facility] [address] [place] [address] Veterinary Radiologist: Baldomero Espinoza MD Basophils/100 WBC (Bld) 1 % Normal 0-2 [facility] Comment on above: Performed By: #### L IP, CP, CDP #### [address] [place], [place] [address] Veterinary Radiologist: Baldomero Espinoza MD Eosinophils (Bld) [#/Vol] 0.07 10*3/uL Normal 0.00-0.44 [facility] Comment on above: Performed By: #### L IP, CP, CDP #### [address] [place], [place] [address]683 Veterinary Radiologist: Baldomero Espinoza MD Eosinophils/100 WBC (Bld) 1 % Normal 1-4 [facility] Comment on above: Performed By: #### L IP, CP, CDP #### [address] [place], [place] [address] Veterinary Radiologist: Baldomero Espinoza MD Erythrocyte distribution width (RBC) [Ratio] 12.7 % Normal 11.8-14.4 [facility] Comment on above: Performed By: #### L KEVIN CP, CDP #### [address] [place], [place] [address] Veterinary Radiologist: Baldomero Espinoza MD Hematocrit (Bld) [Volume fraction] 36.0 % Low 36.3-47.1 [facility] Comment on above: Performed By: #### L KEVIN CP, CDP #### [address] [place], [place] [address]483 Veterinary Radiologist: Baldomero Espinoza MD Hemoglobin (Bld) [Mass/Vol] 12.2 g/dL Normal 11.9-15.1 [facility] Comment on above: Performed By: #### L IP, CP, CDP #### [address] [place], [place] [address]783 Veterinary Radiologist: Baldomero Espinoza MD Immature granulocytes/100 WBC (Bld) 0 % Normal 0 [facility] Comment on above: Performed By: #### L IP, CP, CDP #### [facility] [address] [place], [facility]83 Veterinary Radiologist: Baldomero Espinoza MD Lymphocytes (Bld) [#/Vol] 2.05 10*3/uL Normal 1.10-3.70 [facility] Comment on above: Performed By: #### L IP, CP, CDP #### [facility] [address] [place], [facility]83 Veterinary Radiologist: Baldomero Espinoza MD Lymphocytes/100 WBC (Bld) 34 % Normal 24-43 [facility] Comment on above: Performed By: #### L IP, CP, CDP #### [address] [place] [address] Veterinary Radiologist: Baldomero Espinoza MD MCH (RBC) [Entitic mass] 30.8 pg Normal 25.2-33.5 [facility] Comment on above: Performed By: #### L IP CP, CDP #### [address] [place], [facility]83 Veterinary Radiologist: Baldomero Espinoza MD MCHC (RBC) [Mass/Vol] 33.9 g/dL Normal 28.4-34.8 [facility] Comment on above: Performed By: #### L IP CP, CDP #### [address] [place], [facility]83 Veterinary Radiologist: Baldomero Espinoza MD MCV (RBC) [Entitic vol] 90.9 fL Normal 82.6-102.9 [facility] Comment on above: Performed By: #### L IP, CP, CDP #### [facility] [address] [place] [address] Veterinary Radiologist: Baldomero Espinoza MD Monocytes (Bld) [#/Vol] 0.44 10*3/uL Normal 0.10-1.20 [facility] Comment on above: Performed By: #### L IP, CP, CDP #### [facility] [address] [place], [place] [address] Veterinary Radiologist: Baldomero Espinoza MD Monocytes/100 WBC (Bld) 7 % Normal 3-12 [facility] Comment on above: Performed By: #### L IP, CP, CDP #### [facility] [address] [place], [facility]83 Veterinary Radiologist: Baldomero Espinoza MD Neutrophil (Seg) 57 % Normal 36-65 [facility] Comment on above: Performed By: #### L IP, CP, CDP #### [facility] [address] [place], [facility]83 Veterinary Radiologist: Baldomero Espinoza MD NRBC Automated 0.0 per 100 WBC Normal 0.0 [facility] Comment on above: Performed By: #### L IP, CP, CDP #### [address] [place], [facility]83 Veterinary Radiologist: Baldomero Espinoza MD Platelet mean volume (Bld) [Entitic vol] 11.1 fL Normal 8.1-13.5 [facility] Comment on above: Performed By: #### L IP, CP, CDP #### [address] [place], [facility]83 Veterinary Radiologist: Baldomero Espinoza MD Platelets (Bld) [#/Vol] 226 10*3/uL Normal 138-453 [facility] Comment on above: Performed By: #### L IP, CP, CDP #### [facility] [address] [place], [place] [address]83 Veterinary Radiologist: Baldomero Espinoza MD RBC (Bld) [#/Vol] 3.96 10*6/uL Normal 3.95-5.11 [facility] Comment on above: Performed By: #### L IP, CP, CDP #### [facility] [address] [place], [place] [address] Veterinary Radiologist: Baldoemro Espinoza MD WBC (Bld) [#/Vol] 6.1 10*3/uL Normal 3.5-11.3 [facility] Comment on above: Performed By: #### L IP, CP, CDP #### [facility] [address] [place], [place] [address] Veterinary Radiologist: Baldomero Espinoza MD CNPNon 10-23-2022 CNPN Normal [facility] Comp Metabolic Profon 2022 Albumin [Mass/Vol] 4.1 g/dL Normal 3.5-5.2 [facility] Comment on above: Performed By: #### L IP, CP, CDP #### [facility] [address] [place], [place] [address] Veterinary Radiologist: Baldomero Espinoza MD Albumin/Glob Ratio 1.7 Normal 1.0-2.5 [facility] Comment on above: Performed By: #### L IP, CP, CDP #### [facility] [address] [place], [place] [address]83 Veterinary Radiologist: Baldomero Espinoza MD Alkaline Phos 64 U/L Normal 35-104 [facility] Comment on above: Performed By: #### L IP, CP, CDP #### [facility] [address] [place], [place] [address]049483 Veterinary Radiologist: Baldomero Espinoza MD ALT [Catalytic activity/Vol] 19 U/L Normal 5-33 [facility] Comment on above: Performed By: #### L IP, CP, CDP #### [facility] [address] [place] [address] Veterinary Radiologist: Baldomero Espinoza MD Anion gap [Moles/Vol] 11 mmol/L Normal 9-17 [facility] Comment on above: Performed By: #### L IP, CP, CDP #### [facility] [address] [place], [place] [address] Veterinary Radiologist: Baldomero Espinoza MD AST [Catalytic activity/Vol] 33 U/L High <32 [facility] Comment on above: Performed By: #### L IP, CP, CDP #### [facility] [address] [place], [place] [address]483 Veterinary Radiologist: Baldomero Espinoza MD Bilirubin [Mass/Vol] 0.5 mg/dL Normal 0.3-1.2 [facility] Comment on above: Performed By: #### L IP, CP, CDP #### [facility] [address] [place] [address] Dr[place], [place] 8917483 Veterinary Radiologist: Baldomero Espinoza MD BUN/CRE Ratio 14 Normal 9-20 [facility] Comment on above: Performed By: #### L IP, CP, CDP #### [facility] [address] [place] [address] Dr[address] [place], [place] 2564783 Veterinary Radiologist: Baldomero Espinoza MD Calcium [Mass/Vol] 9.0 mg/dL Normal 8.6-10.4 [facility] Comment on above: Performed By: #### L IP, CP, CDP #### [address] [place], [place] [address] Veterinary Radiologist: Baldomero Espinoza MD Chloride [Moles/Vol] 103 mmol/L Normal 98-107 [facility] Comment on above: Performed By: #### L IP, CP, CDP #### [facility] [address] [place] [address] [place], [place] [address]83 Veterinary Radiologist: Baldomero Espinoza MD CO2 [Moles/Vol] 22 mmol/L Normal 20-31 [facility] Comment on above: Performed By: #### L IP, CP, CDP #### [facility] [address] [place], [place] [address] Veterinary Radiologist: Baldomero Espinoza MD Creatinine [Mass/Vol] 0.7 mg/dL Normal 0.5-0.9 [facility] Comment on above: Performed By: #### L IP CP, CDP #### [address] [place] [address] Veterinary Radiologist: Baldomero Espinoza MD GFR/1.73 sq M.predicted among non-blacks MDRD (S/P/Bld) [Vol rate/Area] mL/min/{1.73_m2} Normal >60 [facility] Comment on above: Result Comment: [...] By: #### L KEVIN CP, CDP #### [address] [place] [address] Veterinary Radiologist: Baldomero Espinoza MD Glucose [Mass/Vol] 86 mg/dL Normal 70-99 [facility] Comment on above: Performed By: #### L JUDITH BROWN, CDP #### [address] [place] [address] Veterinary Radiologist: Baldomero Espinoza MD Potassium [Moles/Vol] 3.4 mmol/L Low 3.7-5.3 [facility] Comment on above: Performed By: #### L IP CP, CDP #### [facility] [address] [place] [address] [place] [address] Veterinary Radiologist: Baldomero Espinoza MD Protein [Mass/Vol] 6.5 g/dL Normal 6.4-8.3 [facility] Comment on above: Performed By: #### L IP CP, CDP #### [address] [place] [address] Veterinary Radiologist: Baldomero Espinoza MD Sodium [Moles/Vol] 136 mmol/L Normal 135-144 [facility] Comment on above: Performed By: #### L JUDITH BROWN, CDP #### [facility] [address] [place] [address] Veterinary Radiologist: Baldomero Espinoza MD Urea nitrogen [Mass/Vol] 10 mg/dL Normal 6-20 [facility] Comment on above: Performed By: #### L JUDITH BROWN, CDP #### [facility] [address] [place] [address] Veterinary Radiologist: Baldomero Espinoza MD HCG, ,Urineon 10-23 Beta HCG ( test) Ql (U) Negative Normal NEG [facility] Comment on above: Result Comment: Spec imens with hCG levels near the threshold of the test (25 mIU/mL) may give a negative or indeterminate result. In such cases, another test should be performed with a new specimen in 48-72 hours. If early is suspected clinically in this setting, correlation with quantitative serum b-hCG level is suggested. [facility] has confirmed the use of plasma for this test. This has not been cleared or approved by the U.[place]. Food and Drug Administration. The FDA has determined that such clearance is not necessary. Performed By: #### U HCG, UAMIC #### [facility] [address] [place] [address] Veterinary Radiologist: Baldomero Espinoza MD Lactic Acidon 4 Lactate [Moles/Vol] 0.8 mmol/L Normal 0.5-2.2 [facility] Comment on above: Performed By: #### L ACTIC #### [facility] [address] [place] [address] Veterinary Radiologist: Baldomero Espinoza MD Lipaseon 9 Lipase [Catalytic activity/Vol] 32 U/L Normal 13-60 [facility] Comment on above: Performed By: #### L JUDITH BROWN, CDP #### [facility] [address] [place] [address] Veterinary Radiologist: Baldomero Espinoza MD Urinalysis w/ Microon 2022 Bacteria 1+ Abnormal NONE [facility] Comment on above: Performed By: #### U HCG, UAMIC ####[facility] , [place] [address]83 Lab Director: Baldomero Espinoza MD Bilirubin, SemiQt,Ur Negative Normal NEG [facility] Comment on above: Performed By: #### U HCG, UAMIC ####[facility] [place] [address] Lab Director: Baldomero Espinoza MD Blood, Urine Negative Normal NEG [facility] Comment on above: Performed By: #### U HCG, UAMIC ####[address] , [place] [address] Lab Director: Baldomero Espinoza MD Clarity (U) Clear Normal CLEAR [facility] Comment on above: Performed By: #### U HCG, UAMIC ####[address] , [place] [address] Lab Director: Baldomero Espinoza MD Color (U) Yellow Normal YEL [facility] Comment on above: Performed By: #### U HCG, UAMIC ####[address] , [facility]83 Lab Director: Baldomero Espinoza MD Epithelial cells LM Ql (Urine sed) 2 TO 5 Normal 0-25 [facility] Comment on above: Performed By: #### U HCG, UAMIC ####[address] , [place] [address] lab Director: Baldomero Espinoza MD Glucose Ql (U) Negative Normal NEG [facility] Comment on above: Performed By: #### U HCG, UAMIC ####[address] [place] [address] lab Director: Baldomero Espinoza MD Ketones Ql (U) Negative Normal NEG [facility] Comment on above: Performed By: #### U HCG, UAMIC ####[address] , [place] 317[address] lab Director: Baldomero Espinoza MD Leukocyte esterase Test strip Ql (U) Negative Normal NEG [facility] Comment on above: Performed By: #### U HCG, UAMIC ####[address] , [place] 29[address]83 lab Director: Baldomero Espinoza MD Mucus Strands TRACE Abnormal NONE [facility] Comment on above: Performed By: #### U HCG, UAMIC ####[address] , [place] 195[address]83 lab Director: Baldomero Espinoza MD Nitrite,Ur Negative Normal NEG [facility] Comment on above: Performed By: #### U HCG, UAMIC ####[address] [place] [address] lab Director: Baldomero Espinoza MD PH,Ur 6.5 Normal 5.0-9.0 [facility] Comment on above: Performed By: #### U HCG, UAMIC ####[address] , [place] 0[address] lab Director: Baldomero Espinoza MD Protein Ql (U) Negative Normal NEG [facility] Comment on above: Performed By: #### U HCG, UAMIC ####[address] , [place] 69[address] lab Director: Baldomero Espinoza MD Spec. Arjay,Ur 1.010 Normal 1.010-1.020 [facility] Comment on above: Performed By: #### U HCG, UAMIC ####[address] , [place] 78[address]83 lab Director: Baldomero Espinoza MD Urine RBC's 0 TO 2 Normal 0-2 [facility] Comment on above: Performed By: #### U HCG, UAMIC ####[facility] [place] [address] lab Director: Baldomero Espinoza MD Urine WBC's 0 TO 2 Normal 0-5 [facility] Comment on above: Performed By: #### U HCG, UAMIC ####[facility] [place] [address] lab Director: Baldomero Espinoza MD Urobilinogen,Ur Normal Normal 0.0-1.0 [facility] Comment on above: Performed By: #### U HCG, UAMIC ####[address] [place] [address] lab Director: Baldomero Espinoza MD Auto Diffon 10-20-2022 Basophils/100 WBC (Bld) 1.0 % Normal 0.0-2.0 [facility] Comment on above: Order Comment: Order Added by Discern Expert. Performed By: #### 2 [id number], [id number], [id number], [id number], [id number] ####[address] [place] [address] Basophils/Leukocyte s Auto (Bld) [Pure # fraction] 0.0 E9/L Normal 0.0-0.2 [facility] Comment on above: Order Comment: Order Added by Discern Expert. Performed By: #### 2 [id number], [id number], [id number], [id number], [id number] ####[facility] [id number] [place] [address] Eosinophils/100 WBC (Bld) 2.2 % Normal 0.0-8.0 [facility] Comment on above: Order Comment: Order Added by Discern Expert. Performed By: #### 2 765420, [id number], [id number], [id number], [id number] ####[facility] [id number] [place] [address] Eosinophils/Leukocy stevan Auto (Bld) [Pure # fraction] 0.1 E9/L Normal 0.0-0.5 [facility] Comment on above: Order Comment: Order Added by Discern Expert. Performed By: #### 2 481955, 1975600, [id number], [id number], [id number] ####[facility] [address] [place] [address] Lymphocytes/100 WBC (Bld) 35.9 % Normal 14.0-50.0 [facility] Comment on above: Order Comment: Order Added by Discern Expert. Performed By: #### 2 158894, 9217314, 3210597, 45309278, 2855890 ####[address] [place] [address] Lymphocytes/Leukocy stevan Auto (Bld) [Pure # fraction] 1.6 E9/L Normal 1.0-4.0 [facility] Comment on above: Order Comment: Order Added by Discern Expert. Performed By: #### 2 591906, 6214880, 8087862, 75436891, 8317637 ####[address] [place] [address] Monocytes/100 WBC (Bld) 5.9 % Normal 4.0-14.0 [facility] Comment on above: Order Comment: Order Added by Discern Expert. Performed By: #### 2 416390, 9421022, 7131855, 37604204, 4832209 ####[address] [place] [address] Monocytes/Leukocyte s Auto (Bld) [Pure # fraction] 0.3 E9/L Normal 0.2-1.0 [facility] Comment on above: Order Comment: Order Added by Discern Expert. Performed By: #### 2 825880, 6590072, 0737481, 18838133, 0928880 ####[facility] [address] [place] [address] Neutrophils/100 WBC (Bld) 55.0 % Normal 36.0-75.0 [facility] Comment on above: Order Comment: Order Added by Discern Expert. Performed By: #### 2 834683, 5079248, 1966019, 58211614, 7540478 ####[address] [place] [address] Neutrophils/Leukocy stevan Auto (Bld) [Pure # fraction] 2.5 E9/L Normal 2.0-7.5 [facility] Comment on above: Order Comment: Order Added by Discern Expert. Performed By: #### 2 935699, 3007604, 4331262, 41006329, 9501895 ####[address] [place] [address] CBC w/ Auto Diffon 3 Erythrocyte distribution width (RBC) [Ratio] 14.0 % Normal 10.9-14.2 [facility] Comment on above: Performed By: #### 2 998616, 6194520, 4358835, 31421672, 6595572 ####[address] [address] Hematocrit (Bld) [Volume fraction] 40.1 % Normal 34.0-46.0 [facility] Comment on above: Performed By: #### 2 346831, 8868901, 1922232, 82062158, 0732109 ####[address] [address] Hemoglobin (Bld) [Mass/Vol] 13.7 g/dL Normal 12.0-16.0 [facility] Comment on above: Performed By: #### 2 611899, 4696519, 1442375, 28079513, 7086513 ####[address] [place] [address] MCH (RBC) [Entitic mass] 30.7 pg Normal 27.0-34.0 [facility] Comment on above: Performed By: #### 2 771686, 5953013, 9903386, 62569539, 4948847 ####[address] [address] MCHC (RBC) [Mass/Vol] 34.2 g/dL Normal 31.4-36.0 [facility] Comment on above: Performed By: #### 2 005046, 9311087, 0707838, 10241774, 4261373 ####[address] [place] [address] MCV (RBC) [Entitic vol] 89.9 fL Normal 80.0-100.0 [facility] Comment on above: Performed By: #### 2 219400, 7945319, 3220395, 45322729, 2861117 ####[address] [place] [address] Platelet mean volume (Bld) [Entitic vol] 9.7 fL Normal 6.4-10.8 [facility] Comment on above: Performed By: #### 2 049976, 7126125, 1360690, 48961651, 1142365 ####[address] [address] Platelets (Bld) [#/Vol] 258.0 E9/L Normal 150.0-500.0 [facility] Comment on above: Performed By: #### 2 641567, 7311635, 4367819, 95944773, 9086840 ####[address] [address] RBC (Bld) [#/Vol] 4.5 E12/L Normal 4.3-5.9 [facility] Comment on above: Performed By: #### 2 210152, 9706817, 7629870, 82133388, 5774553 ####[address] [place] [address] WBC corrected for nucl RBC Auto (Bld) [#/Vol] 4.5 E9/L Normal 4.0-11.0 [facility] Comment on above: Performed By: #### 2 198114, 9385405, 8583771, 12835562, 3354148 ####[address] [place] [address] CHEMISTRYOrdered By: SYSTEM SYSTEM on 10-20-2022 Albumin [...] rate/Area] 87 mL/min/1.73 m2 Normal >=59mL/min/1.73 m2 [facility] Chem S Lipase [Catalytic activity/Vol] 35 U/L [...] ratio] 1.4 {ratio} Normal 1.1 - 2.2 [facility] Chem S Anion gap [Moles/Vol] 11 mmol/L Normal 6 - 16 mEq/L [facility] Chem S Globulin (S) [Mass/Vol] 3.0 g/dL Normal 1.4 - 4.0 gm/dL [facility] Chem S Glucose [Mass/Vol] 86 mg/dL Normal 55 - 199 mg/dL [facility] Chem S Urea nitrogen/Creatinine [Mass ratio] 12 mg/mg Normal 10 - 20 [facility] Chem S CMPon 10-20-2022 Albumin/Globulin (S) [Mass conc ratio] 1.4 Normal 1.1-2.2 [facility] Comment on above: Performed By: #### 2 024910, 9311553, 1814442, 25732314, 4541492 ####[facility] [address] [place] [address] Anion gap [Moles/Vol] 11 mmol/L Normal 6-16 [facility] Comment on above: Performed By: #### 2 995701, 3821939, 2895371, 58396848, 1392401 ####[facility] [address] [place] [address] Globulin (S) [Mass/Vol] 3.0 g/dL Normal 1.4-4.0 [facility] Comment on above: Performed By: #### 2 678809, 2421006, 7018330, 36051076, 9500250 ####[facility] [address] [place] [address] Glucose [Mass/Vol] 86 mg/dL Normal 55-199 [facility] Comment on above: Result Comment: If t his glucose result represents a fasting glucose, interpretation should refer to the following reference range: 55-99 mg/dL Performed By: #### 2 981029, 9252847, 1723467, 12944262, 0911722 ####[facility] [address] [place] [address] Urea nitrogen/Creatinine [Mass ratio] 12 No Units Normal 10-20 [facility] Comment on above: Performed By: #### 2 786312, 5924592, 1248719, 61001833, 2992308 ####[facility] [address] [place] [address] Albumin [Mass/Vol] 4.2 g/dL Normal 3.3-5.0 [facility] Comment on above: Performed By: #### 2 719310, 4189912, 8012590, 32902991, 0590381 ####[facility] [address] [place] [address] ALP [Catalytic activity/Vol] 55 Int._Unit/L Normal 21-98 [facility] Comment on above: Performed By: #### 2 657912, 4860287, 4902530, 12891241, 5622680 ####[address] [place] [address] ALT No additional P-5'-P [Catalytic activity/Vol] 27 Int._Unit/L Normal 6-46 [facility] Comment on above: Performed By: #### 2 849919, 9195687, 9363469, 81564909, 0627675 ####[facility] [address] [place] [address] AST [Catalytic activity/Vol] 42 Int._Unit/L Normal 5-43 [facility] Comment on above: Performed By: #### 2 924950, 3943517, 0346069, 01158157, 0087045 ####[facility] [address] [place] [address] Bilirubin [Mass/Vol] 0.4 mg/dL Normal 0.0-1.1 [facility] Comment on above: Performed By: #### 2 914570, 1156105, 9248235, 97308250, 4044205 ####[facility] [address] [place] [address] Calcium [Mass/Vol] 9.0 mg/dL Normal 8.9-11.1 [facility] Comment on above: Performed By: #### 2 904693, 6228293, 9844459, 58639566, 3171635 ####[facility] [address] [place] [address] Chloride [Moles/Vol] 108 mmol/L Normal 101-111 [facility] Comment on above: Performed By: #### 2 781569, 0056335, 3352657, 04797774, 2839952 ####[facility] [address] [place] [address] CO2 [Moles/Vol] 24 mmol/L Normal 21-31 [facility] Comment on above: Performed By: #### 2 531315, 7047230, 8109905, 94512595, 4436789 ####[facility] [address] [place] [address] Creatinine [Mass/Vol] 0.9 mg/dL Normal 0.5-1.3 [facility] Comment on above: Performed By: #### 2 295723, 2208721, 6251107, 91607640, 1710427 ####[facility] [address] [place] [address] Potassium [Moles/Vol] 3.8 mmol/L Normal 3.5-5.3 [facility] Comment on above: Performed By: #### 2 641433, 9968428, 7581261, 66269249, 1194301 ####[facility] [address] [place] [address] Protein [Mass/Vol] 7.2 g/dL Normal 6.0-7.8 [facility] Comment on above: Performed By: #### 2 923854, 1451367, 4112997, 42941232, 6293830 ####[facility] [address] [place] [address] Sodium [Moles/Vol] 139 mmol/L Normal 135-145 [facility] Comment on above: Performed By: #### 2 296642, 5951421, 2242604, 87044802, 0759429 ####[facility] [address] [place] [address] Urea nitrogen [Mass/Vol] 11 mg/dL Normal 5-21 [facility] Comment on above: Performed By: #### 2 192464, 2586007, 0474288, 04593590, 0627171 ####[facility] [address] [place] [address] CNPNon 10-20-2022 CNPN Normal [facility] CT Abdomen/Pelvis w/o Contra ston 10-20-2022 CT Abdomen/Pelvis w/o Contrast Normal [facility] CT Chest w/o Contraston CT Chest w/o Contrast Normal [facility] Consent for Treatmenton Consent for Treatment [id number] 2D#1.00CD:127 Normal [facility] Discharge Instructionson Discharge Instructions [id number]#1.00CD:127 Normal [facility] ED Clinical Summaryon 2022 ED Clinical Summary Normal [facility] ED Patient Education Noteon 10-20-2022 ED Patient Education Note Normal [facility] ED Patient Summaryon 023 ED Patient Summary Normal [facility] HEMATOLOGYOrdered By: SYSTEM SYSTEM on 10-20-2022 [...] 2.5 E9/L Normal 2.0 - 7.5 E9/L [facility] HemeAutoSS HEMATOLOGYOrdered By: Aliyah Renteria on 10-20-2022 [...] 4.5 E9/L Normal 4.0 - 11.0 E9/L [facility] HemeAutoSS Lipase Levelon 10-20-2022 Lipase [Catalytic activity/Vol] 35 U/L Normal 13-58 [facility] Comment on above: Performed By: #### 2 109235, 2965775, 8995693, 55851447, 8032576 ####[facility] [address] [place] [address] Prescriptions/Work Noteson 0 10-20-2022 Prescriptions/Work Notes [id number] 266#1.00CD:127 Normal [facility] Prescriptions/Work Notes [id number]#1.00CD:127 Normal [facility] Comment on above: Other Comment: scann ed in error UA With Cult Reflexon 2022 Bilirubin Ql (U) Negative Normal Negative [facility] Comment on above: Performed By: #### 1 0144147 ####[facility] [address] [place] [address] Clarity (U) CLEAR Normal Clear [facility] Comment on above: Performed By: #### 1 5433926 ####[address] [address] Color (U) YELLOW Normal Yellow [facility] Comment on above: Performed By: #### 1 4543216 ####[facility] [address] [place] [address] Epithelial cells.squamous LM.HPF (Urine sed) [#/Area] 3-4 Normal 0-2 [facility] Comment on above: Performed By: #### 1 6946968 ####[facility] [address] [place] [address] Glucose Test strip (U) [Mass/Vol] Negative Normal Negative [facility] Comment on above: Performed By: #### 1 3049839 ####[facility] [address] [place] [address] Hemoglobin Ql (U) Negative Normal Negative [facility] Comment on above: Performed By: #### 1 9918371 ####[address] [address] Ketones (U) [Mass/Vol] Negative Normal Negative [facility] Comment on above: Performed By: #### 1 4788417 ####[address] [address] [place].plasma/Lith ium.RBC (Bld) [Mass ratio] 0-3 Normal 0-3 [facility] Comment on above: Performed By: #### 1 0176714 ####[facility] [address] [place] [address] Nitrite Ql (U) Negative Normal Negative [facility] Comment on above: Performed By: #### 1 0596969 ####[address] [address] pH (U) 7.5 [pH] Invalid Interpretation Code 5.0-9.0 [facility] Comment on above: Performed By: #### 1 6129614 ####[address] [address] Protein (U) [Mass/Vol] Negative Normal Negative [facility] Comment on above: Performed By: #### 1 6522705 ####[address] [address] Specific gravity (U) [Rel density] 1.015 Invalid Interpretation Code 1.005-1.030 [facility] Comment on above: Performed By: #### 1 1478733 ####[address] [address] Type of Urine collection method Clean Catch Normal [facility] Comment on above: Performed By: #### 1 7081819 ####[address] [address] Urobilinogen Qn (U) 0.2 {Munir'U}/dL Normal 0.0-1.0 [facility] Comment on above: Performed By: #### 1 0451571 ####[address] [address] WBC Auto Ql (U) Negative Normal Negative [facility] Comment on above: Performed By: #### 1 0354498 ####[address] [address] WBC LM.HPF (Urine sed) [#/Area] 0-5 Normal 0-5 [facility] Comment on above: Performed By: #### 1 3828834 ####[facility] [address] [place] [address] URINALYSISOrdered By: Edilberto Meng on 10-20-2022 Bilirubin [...] AM) Normal Negative [facility] UA Auto SS [place].plasma/Lith ium.RBC (Bld) [Mass ratio] 0-3 /HPF Normal [...] [facility] UA Auto SS Urobilinogen Qn (U) 0.6001321 {Munir'U}/dL Normal 0.0 - 1.0 EU/dL [facility] UA Auto SS WBC Auto Ql (U) Negative (10/20/22 10:25 AM) Normal Negative [facility] UA Auto SS WBC LM.HPF (Urine sed) [#/Area] 0-5 /HPF Normal 0-5/HPF [facility] UA Auto SS eGFRon 10-20-2022 GFR/1.73 sq M.predicted among non-blacks MDRD (S/P/Bld) [Vol rate/Area] 87 mL/min/1.73 m2 Normal >=59 [facility] Comment on above: Order Comment: Order added by Discern Expert. Result Comment: Chief Security And Safety Officer alejandra kidney disease could be indicated at eGFR's of less than 60 mL/min/1.73m2. Kidney failure is indicated at less than 15 mL/min/1.73m2. Performed By: #### 2 215958, 8250756, 4736202, 30239651, 0577606 ####[facility] [address] [place] [address] Auto DiffOrdered By: SYSTEM SYSTEM on 10-19-2022 Basophils/100 WBC (Bld) 0.8 % Normal 0.0-2.0 [facility] HemeAutoSS Comment on above: Order Comment: Order Added by Mariela Expert. Performed By: #### 2 725664, 7514277, 94596966, 3941602, 0111886, 11181522, 3183580 ####[facility] [address] [place] [address] Basophils/Leukocyte s Auto (Bld) [Pure # fraction] 0.0 E9/L Normal 0.0-0.2 [facility] HemeAutoSS Comment on above: Order Comment: Order Added by Discern Expert. Performed By: #### 2 046724, 1068094, 19051108, 3797659, 5814975, 62454339, 4971254 ####[facility] [address] [place] [address] Eosinophils/100 WBC (Bld) 3.5 % Normal 0.0-8.0 [facility] HemeAutoSS Comment on above: Order Comment: Order Added by Mariela Expert. Performed By: #### 2 435984, 4647234, 75195139, 3913918, 8131529, 85926811, 9462789 ####[facility] [address] [place] [address] Eosinophils/Leukocy stevan Auto (Bld) [Pure # fraction] 0.2 E9/L Normal 0.0-0.5 [facility]eAutoSS Comment on above: Order Comment: Order Added by Discern Expert. Performed By: #### 2 431950, 3692170, 12293703, 7758867, 4251826, 83689881, 6609747 ####[place] [address] [address] Lymphocytes/100 WBC (Bld) 47.3 % Normal 14.0-50.0 [facility]Auto[facility] Comment on above: Order Comment: Order Added by Discern Expert. Performed By: #### 2 174537, 7952201, 26260060, 7936904, 8544029, 60279859, 6191377 ####[address] [address] Lymphocytes/Leukocy stevan Auto (Bld) [Pure # fraction] 2.1 E9/L Normal 1.0-4.0 [facility]eAuto[facility] Comment on above: Order Comment: Order Added by Discern Expert. Performed By: #### 2 783130, 7608851, 88127315, 1098491, 4458410, 36131878, 7636250 ####[address] [address] Monocytes/100 WBC (Bld) 6.6 % Normal 4.0-14.0 [facility]eAutoSS Comment on above: Order Comment: Order Added by Discern Expert. Performed By: #### 2 354105, 0308720, 09358774, 3022050, 1860948, 23083662, 8534827 ####[place] [address] [address] Monocytes/Leukocyte s Auto (Bld) [Pure # fraction] 0.3 E9/L Normal 0.2-1.0 [facility]eAuto[facility] Comment on above: Order Comment: Order Added by Mariela Expert. Performed By: #### 2 789182, 7509860, 25127115, 9998116, 3480446, 64302830, 1803972 ####[address] [address] Neutrophils/100 WBC (Bld) 41.8 % Normal 36.0-75.0 [facility]eAuto[facility] Comment on above: Order Comment: Order Added by Discern Expert. Performed By: #### 2 804886, 0281542, 07923799, 7913517, 3938792, 47866219, 5878292 ####[facility] [address] [place] [address] Neutrophils/Leukocy stevan Auto (Bld) [Pure # fraction] 1.8 E9/L Low 2.0-7.5 [facility] HemeAutoSS Comment on above: Order Comment: Order Added by Discern Expert. Performed By: #### 2 827328, 7000472, 91220654, 7936554, 0713574, 63847458, 6881263 ####[place] [address] [address] BMPOrdered By: SYSTEM SYSTEM on 10-19-2022 Creatinine [Mass/Vol] 0.8 mg/dL Normal 0.5-1.3 [facility] Comment on above: Performed By: #### 2 446486, 0801892, 48442753, 9813933, 6441913, 92515293, 9850815 ####[place] [address] [place] [address] Urea nitrogen [Mass/Vol] 9 mg/dL Normal 5-21 [facility] Comment on above: Performed By: #### 2 878910, 6128869, 33864103, 4526024, 3009350, 08714199, 4746236 ####[place] [address] [place] [address] Anion gap [Moles/Vol] 10 mmol/L Normal 6-16 [facility] Comment on above: Performed By: #### 2 011384, 2339716, 80141944, 1744804, 8520321, 80159862, 7034721 ####[place] [address] [place] [address] Calcium [Mass/Vol] 9.3 mg/dL Normal 8.9-11.1 [facility] R emisol Comment on above: Performed By: #### 2 389198, 0252622, 52321148, 6961466, 9113970, 59018420, 2792324 ####[facility] [address] [place] [address] Chloride [Moles/Vol] 108 mmol/L Normal 101-111 [facility] Remisol Comment on above: Performed By: #### 2 823519, 4953052, 31475790, 6676099, 9883747, 66636534, 7304885 ####[address] [address] CO2 [Moles/Vol] 25 mmol/L Normal 21-31 [facility] Jonathan blade Comment on above: Performed By: #### 2 027608, 0042953, 66764884, 7075642, 6986018, 95159118, 8722370 ####[address] [address] Glucose [Mass/Vol] 83 mg/dL Normal 55-199 [facility] R emisol Comment on above: Result Comment: If t his glucose result represents a fasting glucose, interpretation should refer to the following reference range: 55-99 mg/dL Performed By: #### 2 077591, 2036995, 23449060, 0190856, 8758401, 03706753, 5020273 ####[address] [address] Potassium [Moles/Vol] 4.1 mmol/L Normal 3.5-5.3 [facility] Remisol Comment on above: Performed By: #### 2 753332, 1380596, 35613800, 5857526, 7803079, 64822229, 0715470 ####[address] [place] [address] Sodium [Moles/Vol] 139 mmol/L Normal 135-145 [facility] R emisol Comment on above: Performed By: #### 2 821425, 7511655, 34131428, 3737762, 6506366, 16535976, 6469854 ####[place] [address] [address] BMPon 10-19-2022 Urea nitrogen/Creatinine [Mass ratio] 11 No Units Normal 10-20 [facility] Comment on above: Performed By: #### 2 818188, 2999875, 99392271, 6729817, 1425626, 36625338, 6093239 ####[facility] [address] [place] [address] CBC w/ Auto DiffOrdered By: Kaye Case on 10-19-2022 Erythrocyte distribution width (RBC) [Ratio] 13.7 % Normal 10.9-14.2 [facility] HemeAutoSS Comment on above: Performed By: #### 2 160723, 9825476, 54027143, 4826533, 0116904, 69064770, 8105877 ####[facility] [address] [place] [address] Hematocrit (Bld) [Volume fraction] 40.7 % Normal 34.0-46.0 [facility] HemeAutoSS Comment on above: Performed By: #### 2 601526, 0200585, 53603298, 6380426, 3510975, 39551603, 1747122 ####[facility] [address] [place] [address] Hemoglobin (Bld) [Mass/Vol] 14.1 g/dL Normal 12.0-16.0 [facility] HemeAutoSS Comment on above: Performed By: #### 2 939527, 7710391, 15850149, 7162721, 0127604, 82829862, 0648953 ####[facility] [address] [place] [address] MCH (RBC) [Entitic mass] 31.0 pg Normal 27.0-34.0 [facility] HemeAutoSS Comment on above: Performed By: #### 2 681953, 9068128, 42024006, 2113790, 9284593, 31246842, 7118739 ####[facility] [address] [place] [address] MCHC (RBC) [Mass/Vol] 34.5 g/dL Normal 31.4-36.0 [facility] HemeAutoSS Comment on above: Performed By: #### 2 421283, 2798845, 65802780, 0979549, 7585081, 40536640, 7597440 ####[place] [address] [address] MCV (RBC) [Entitic vol] 89.8 fL Normal 80.0-100.0 [facility] HemeAutoSS Comment on above: Performed By: #### 2 914749, 2799927, 63916798, 7806024, 7725252, 04296196, 7667548 ####[place] [address] [address] Platelet mean volume (Bld) [Entitic vol] 10.3 fL Normal 6.4-10.8 [facility] HemeAutoSS Comment on above: Performed By: #### 2 905033, 8063551, 29524298, 0759197, 5972783, 19156793, 7585317 ####[place] [address] [address] Platelets (Bld) [#/Vol] 245.0 E9/L Normal 150.0-500.0 [facility] HemeAutoSS Comment on above: Performed By: #### 2 426683, 1521929, 60288048, 8083200, 8133243, 24076304, 1788473 ####[place] [address] [address] RBC (Bld) [#/Vol] 4.5 E12/L Normal 4.3-5.9 [facility] HemeAutoSS Comment on above: Performed By: #### 2 910824, 5499962, 94362484, 0054741, 1358594, 28359378, 9549430 ####[place] [address] [address] WBC corrected for nucl RBC Auto (Bld) [#/Vol] 4.4 E9/L Normal 4.0-11.0 [facility] HemeAutoSS Comment on above: Performed By: #### 2 118658, 0840934, 16321929, 8224516, 4921525, 20071006, 1794419 ####[facility] [address] [place] [address] CHEMISTRYOrdered By: SYSTEM SYSTEM on 10-19-2022 Albumin/Globulin [...] Consent for Treatmenton Consent for Treatment [id number] C7#1.00CD:127 Normal [facility] Discharge Instructionson Discharge Instructions [id number] 6#1.00CD:127 Normal [facility] ED Clinical Summaryon 2022 ED Clinical Summary [facility] [facility] ED Note-Physicianon 10-20-19 ED Note-Physician Normal [facility] Comment on above: Result Comment: Elec tronically Signed By: Earnest Jett DO\.br\Date and Time Signed: 10/19/22 13:41 EDT ED Patient Education Noteon 10-19-2022 ED Patient Education Note Normal [facility] ED Patient Summaryon 023 ED Patient Summary Normal [facility] Hep Func Panelon 10-19-2022 Bilirubin.indirect [Mass or moles/Vol] UTC Abnormal 0.1-0.9 [facility] Comment on above: Result Comment: Resu lt verified by Discern Rule. Performed result UTC (Unable to Calculate) was sent as an Alpha code due the inability to calculate a valid numeric value. Performed By: #### 2 018089, 6670443, 95840616, 8842761, 3743155, 24032674, 2052480 ####[address] [place] [address] Albumin/Globulin (S) [Mass conc ratio] 1.5 Normal 1.1-2.2 [facility] Comment on above: Performed By: #### 2 403966, 2392526, 89645818, 7954642, 1739351, 29781920, 5935336 ####[address] [place] [address] ALP [Catalytic activity/Vol] 63 Int._Unit/L Normal 21-98 [facility] Comment on above: Performed By: #### 2 028514, 1947248, 58941604, 6196487, 3056300, 44802391, 7913647 ####[address] [place] [address] ALT No additional P-5'-P [Catalytic activity/Vol] 30 Int._Unit/L Normal 6-46 [facility] Comment on above: Performed By: #### 2 881968, 2377594, 79575825, 0901743, 6363139, 72182822, 5763179 ####[address] [place] [address] AST [Catalytic activity/Vol] 47 Int._Unit/L High 5-43 [facility] Comment on above: Performed By: #### 2 498128, 5631191, 50196967, 6900490, 1238007, 36133722, 7891072 ####[address] [place] [address] Hep Func PanelOrdered By: [employer] SYSTEM on 10-19-2022 Albumin [Mass/Vol] 4.4 g/dL Normal 3.3-5.0 [facility] R emisol Comment on above: Performed By: #### 2 279447, 4914103, 18161321, 6182387, 9592495, 93269605, 6165569 ####[facility] [address] [place] [address] Bilirubin [Mass/Vol] 0.5 mg/dL Normal 0.0-1.1 [facility] Comment on above: Performed By: #### 2 566007, 3889583, 38177660, 1468046, 2328635, 69942741, 9159751 ####[address] [address] Globulin (S) [Mass/Vol] 3.0 g/dL Normal 1.4-4.0 [facility] Comment on above: Performed By: #### 2 536316, 3373041, 90813869, 6630618, 4929777, 37566773, 8644368 ####[place] [address] [address] Protein [Mass/Vol] 7.4 g/dL Normal 6.0-7.8 [facility] Comment on above: Performed By: #### 2 795775, 4546389, 37990817, 8807718, 6834414, 12091395, 5237982 ####[address] [address] Bilirubin.direct [Mass/Vol] mg/dL Normal 0.1-0.4 [facility] Comment on above: Performed By: #### 2 270708, 4988264, 74792147, 0508153, 1246254, 70258898, 6019429 ####[address] [address] Lipase LevelOrdered By: SYST EM SYSTEM on 10-19-2022 Lipase [Catalytic activity/Vol] 89 U/L High 13-58 [facility] Comment on above: Performed By: #### 2 389885, 0632873, 57782361, 1685832, 0431818, 19588792, 5852916 ####[address] [address] Prescriptions/Work Noteson 0 10-19-2022 Prescriptions/Work Notes [id number] 7#1.00CD:127 Normal [facility] TSH With T4fr ReflexOrdered By: SYSTEM SYSTEM on 10-19-2022 TSH Qn 0.68 m[IU]/L Normal 0.34-5.60 [facility] Comment on above: Performed By: #### 2 803070, 9387939, 49658732, 2636143, 5155345, 90443464, 2691822 ####[facility] [address] [place] [address] UA With Cult Reflexon 2022 Bilirubin Ql (U) Negative Normal Negative [facility] Comment on above: Performed By: #### 1 0083095 ####[address] [address] Clarity (U) CLEAR Normal Clear [facility] Comment on above: Performed By: #### 1 7552096 ####[facility] [address] [place] [address] Color (U) YELLOW Normal Yellow [facility] Comment on above: Performed By: #### 1 0924264 ####[facility] [address] [place] [address] Epithelial cells.squamous LM.HPF (Urine sed) [#/Area] 0-2 Normal 0-2 [facility] Comment on above: Performed By: #### 1 6038402 ####[facility] [address] [place] [address] Glucose Test strip (U) [Mass/Vol] Negative Normal Negative [facility] Comment on above: Performed By: #### 1 9941799 ####[facility] [address] [place] [address] Hemoglobin Ql (U) Negative Normal Negative [facility] Comment on above: Performed By: #### 1 2068206 ####[facility] [address] [place] [address] Ketones (U) [Mass/Vol] Negative Normal Negative [facility] Comment on above: Performed By: #### 1 7081535 ####[address] [address] [place].plasma/Lith ium.RBC (Bld) [Mass ratio] 0-3 Normal 0-3 [facility] Comment on above: Performed By: #### 1 9230847 ####[address] [address] Nitrite Ql (U) Negative Normal Negative [facility] Comment on above: Performed By: #### 1 6394591 ####[address] [address] pH (U) 7.5 [pH] Invalid Interpretation Code 5.0-9.0 [facility] Comment on above: Performed By: #### 1 4750662 ####[address] [address] Protein (U) [Mass/Vol] Negative Normal Negative [facility] Comment on above: Performed By: #### 1 3829423 ####[address] [address] Specific gravity (U) [Rel density] 1.010 Invalid Interpretation Code 1.005-1.030 [facility] Comment on above: Performed By: #### 1 8670253 ####[address] [address] Type of Urine collection method Clean Catch Normal [facility] Comment on above: Performed By: #### 1 7669769 ####[address] [address] Urobilinogen Qn (U) 0.2 {Munir'U}/dL Normal 0.0-1.0 [facility] Comment on above: Performed By: #### 1 6214752 ####[address] [address] WBC Auto Ql (U) Negative Normal Negative [facility] Comment on above: Performed By: #### 1 4959498 ####[address] [address] WBC LM.HPF (Urine sed) [#/Area] 0-5 Normal 0-5 [facility] Comment on above: Performed By: #### 1 6454740 ####[facility] [address] [place] [address] URINALYSISOrdered By: Kaye brito on 10-19-2022 Bilirubin [...] AM) Normal Negative [facility] UA Auto SS [place].plasma/Lith ium.RBC (Bld) [Mass ratio] 0-3 /HPF Normal [...] [facility] UA Auto SS Urobilinogen Qn (U) 0.5994766 {Munir'U}/dL Normal 0.0 - 1.0 EU/dL [facility] UA Auto SS WBC Auto Ql (U) Negative (10/19/22 9:18 AM) Normal Negative [facility] UA Auto SS WBC LM.HPF (Urine sed) [#/Area] 0-5 /HPF Normal 0-5/HPF [facility] UA Auto SS XR Chest 2 Viewson 3 XR Chest 2 Views Normal [facility] eGFROrdered By: SYSTEM HUAN Flores on 10-19-2022 GFR/1.73 sq M.predicted among non-blacks MDRD (S/P/Bld) [Vol rate/Area] 100 mL/min/1.73 m2 Normal >=59 [facility] Chem S Comment on above: Order Comment: Order added by Discern Expert. Result Comment: Chief Security And Safety Officer alejandra kidney disease could be indicated at eGFR's of less than 60 mL/min/1.73m2. Kidney failure is indicated at less than 15 mL/min/1.73m2. Performed By: #### 2 016538, 0072596, 56758084, 2893547, 9287797, 40369384, 7622769 ####[facility] [address] [place] [address] [facility] HEALTH[facility] 10-18-2022 ALLIED HEALTH HNO ID: [id number] Author: Karina Gonzales Tech Service: ? Author [...] Speci men Type: BLOOD SPECIMEN Ordering Facility: [facility] Address: [address] [address] Performed By: #### 5 7021-8 #### [facility] CLIA [id number] [address] [place] [address] STATES OF [facility] Basophils/100 WBC (Bld) 0.8 % Normal [facility] Comment on above: Order Comment: Speci men Type: BLOOD SPECIMEN Ordering Facility: [facility] Address: [address] [address] Performed By: #### 5 7021-8 #### [facility] CLIA [id number] [address] [place] [address] [place] OF [facility] Differential cell count method Nom (Bld) Auto Normal [facility] Comment on above: Order Comment: Speci men Type: BLOOD SPECIMEN Ordering Facility: [facility] Address: [address] [address] Performed By: #### 5 7021-8 #### [facility] CLIA [id number] [address] Eosinophils (Bld) [#/Vol] 0.14 10*3/uL Normal <0.46 [facility] Comment on above: Order Comment: Speci men Type: BLOOD SPECIMEN Ordering Facility: [facility] Address: [address] [address] Performed By: #### 5 7021-8 #### [facility] CLIA [id number] [address] Eosinophils/100 WBC (Bld) 3.7 % Normal [facility] Comment on above: Order Comment: Speci men Type: BLOOD SPECIMEN Ordering Facility: [facility] Address: [address] [address] Performed By: #### 5 7021-8 #### [facility] CLIA [id number] [address] Erythrocyte distribution width (RBC) [Ratio] 12.7 % Normal 11.5-15.0 [facility] Comment on above: Order Comment: Speci men Type: BLOOD SPECIMEN Ordering Facility: [facility] Address: [address] [address] Performed By: #### 5 7021-8 #### [facility] CLIA [id number] [address] Hematocrit (Bld) [Volume fraction] 38.5 % Normal 36.0-46.0 [facility] Comment on above: Order Comment: Speci men Type: BLOOD SPECIMEN Ordering Facility: [facility] Address: [address] [address] Performed By: #### 5 7021-8 #### [facility] CLIA [id number] [address] [place] Hemoglobin (Bld) [Mass/Vol] 12.9 g/dL Normal 11.5-15.5 [facility] Comment on above: Order Comment: Speci men Type: BLOOD SPECIMEN Ordering Facility: [facility] Address: [address] [address] Performed By: #### 5 7021-8 #### [facility] CLIA [id number] [address] Immature granulocytes (Bld) [#/Vol] 10*3/uL Normal <0.10 [facility] Comment on above: Order Comment: Speci men Type: BLOOD SPECIMEN Ordering Facility: [facility] Address: [address] [address] Performed By: #### 5 7021-8 #### [facility] CLIA [id number] [address] Immature granulocytes/100 WBC (Bld) 0.3 % Normal [facility] Comment on above: Order Comment: Speci men Type: BLOOD SPECIMEN Ordering Facility: [facility] Address: [address] [address] Performed By: #### 5 7021-8 #### [facility] CLIA [id number] [address] Lymphocytes (Bld) [#/Vol] 1.66 10*3/uL Normal 1.00-4.00 [facility] Comment on above: Order Comment: Speci men Type: BLOOD SPECIMEN Ordering Facility: [facility] Address: [address] [address] Performed By: #### 5 7021-8 #### [facility] CLIA [id number] [address] Lymphocytes/100 WBC (Bld) 43.7 % Normal [facility] Comment on above: Order Comment: Speci men Type: BLOOD SPECIMEN Ordering Facility: [facility] Address: [address] [place] [address] Performed By: #### 5 7021-8 #### [facility] CLIA [id number] [address] [place] MCH (RBC) [Entitic mass] 30.2 pg Normal 26.0-34.0 [facility] Comment on above: Order Comment: Speci men Type: BLOOD SPECIMEN Ordering Facility: [facility] Address: [address] [address] Performed By: #### 5 7021-8 #### [facility] CLIA [id number] [address] MCHC (RBC) [Mass/Vol] 33.5 g/dL Normal 30.5-36.0 [facility] Comment on above: Order Comment: Speci men Type: BLOOD SPECIMEN Ordering Facility: [facility] Address: [address] [place] [address] Performed By: #### 5 7021-8 #### [facility] CLIA [id number] [address] MCV (RBC) [Entitic vol] 90.2 fL Normal 80.0-100.0 [facility] Comment on above: Order Comment: Speci men Type: BLOOD SPECIMEN Ordering Facility: [facility] Address: [address] [place] [address] Performed By: #### 5 7021-8 #### [facility] CLIA [id number] [address] Monocytes (Bld) [#/Vol] 0.28 10*3/uL Normal <0.87 [facility] Comment on above: Order Comment: Speci men Type: BLOOD SPECIMEN Ordering Facility: [facility] Address: [address] [address] Performed By: #### 5 7021-8 #### [facility] CLIA [id number] [address] Monocytes/100 WBC (Bld) 7.4 % Normal [facility] Comment on above: Order Comment: Speci men Type: BLOOD SPECIMEN Ordering Facility: [facility] Address: [address] [address] Performed By: #### 5 7021-8 #### [facility] CLIA [id number] [address] [place] Neutrophils (Bld) [#/Vol] 1.68 10*3/uL Normal 1.45-7.50 [facility] Comment on above: Order Comment: Speci men Type: BLOOD SPECIMEN Ordering Facility: [facility] Address: [address] [place] [address] Performed By: #### 5 7021-8 #### [facility] CLIA [id number] [address] [place] Neutrophils/100 WBC (Bld) 44.1 % Normal [facility] Comment on above: Order Comment: Speci men Type: BLOOD SPECIMEN Ordering Facility: [facility] Address: [address] [place] [address] Performed By: #### 5 7021-8 #### [facility] CLIA [id number] [address] [place] Nucleated RBC (Bld) [#/Vol] 10*3/uL Normal <0.01 [facility] Comment on above: Order Comment: Speci men Type: BLOOD SPECIMEN Ordering Facility: [facility] Address: [address] [place] [address] Performed By: #### 5 7021-8 #### [facility] CLIA [id number] [address] [place] Nucleated RBC/100 WBC (Bld) [Ratio] 0.0 /100 WBC Normal [facility] Comment on above: Order Comment: Speci men Type: BLOOD SPECIMEN Ordering Facility: [facility] Address: [address] [place] [address] Performed By: #### 5 7021-8 #### [facility] CLIA [id number] [address] [place] Platelet mean volume (Bld) [Entitic vol] 11.1 fL Normal 9.0-12.7 [facility] Comment on above: Order Comment: Speci men Type: BLOOD SPECIMEN Ordering Facility: [facility] Address: [address] [address] Performed By: #### 5 7021-8 #### [facility] CLIA [id number] [address] OF [facility] Platelets (Bld) [#/Vol] 231 10*3/uL Normal 150-400 [facility] Comment on above: Order Comment: Speci men Type: BLOOD SPECIMEN Ordering Facility: [facility] Address: [address] [address] Performed By: #### 5 7021-8 #### [facility] CLIA [id number] [address] [place] RBC (Bld) [#/Vol] 4.27 10*6/uL Normal 3.90-5.20 [facility] Comment on above: Order Comment: Speci men Type: BLOOD SPECIMEN Ordering Facility: [facility] Address: [address] [address] Performed By: #### 5 7021-8 #### [facility] CLIA [id number] [address] WBC (Bld) [#/Vol] 3.80 10*3/uL Normal 3.70-11.00 [facility] Comment on above: Order Comment: Speci men Type: BLOOD SPECIMEN Ordering Facility: [facility] Address: [address] [place] [address] Performed By: #### 5 7021-8 #### [facility] CLIA [id number] [address] OF [facility] CT ABD/PEL WO IVCONon 2022 CT ABD/PEL WO IVCON * * *Final Report* * * DATE OF EXAM: Oct 18 2022 10:07AM [facility] 0531 - CT ABD/PEL WO IVCON [...] Tissues: No acute abnormality. Lower thorax: Unremarkable. Training Systems Officer (topogram) images: No additional findings. IMPRESSION: Stable findings as detailed above. No acute intra-abdominal or pelvic process seen. Quality Process Auditor: JUANCARLOS Transcribe Date/Time: Oct 18 2022 10:14A [...] Speci men Type: BLOOD SPECIMEN Ordering Facility: [facility] Address: [address] [place] [id number] Performed By: #### 2 4323-8, 3040-3 #### [facility] CLIA [id number] [address] ALP [Catalytic activity/Vol] 73 U/L Normal 34-123 [facility] Comment on above: Order Comment: Speci men Type: BLOOD SPECIMEN Ordering Facility: [facility] Address: [address] [place] [address] Performed By: #### 2 4323-8, 3040-3 #### [facility] CLIA [id number] [address] STATES OF [facility] ALT With P-5'-P [Catalytic activity/Vol] 24 U/L Normal 7-38 [facility] Comment on above: Order Comment: Speci men Type: BLOOD SPECIMEN Ordering Facility: [facility] Address: [address] [place] [address] Performed By: #### 2 4323-8, 0-3 #### [facility] CLIA [id number] [address] Anion gap [Moles/Vol] 8 mmol/L Low 9-18 [facility] Comment on above: Order Comment: Speci men Type: BLOOD SPECIMEN Ordering Facility: [facility] Address: [address] [place] [address] Performed By: #### 2 4323-8, 0-3 #### [facility] CLIA [id number] [address] AST With P-5'-P [Catalytic activity/Vol] 36 U/L High 13-35 [facility] Comment on above: Order Comment: Speci men Type: BLOOD SPECIMEN Ordering Facility: [facility] Address: [address] [place] [address] Performed By: #### 2 4323-8, 3040-3 #### [facility] CLIA [id number] [address] OF [facility] Bilirubin [Mass/Vol] 0.4 mg/dL Normal 0.2-1.3 [facility] Comment on above: Order Comment: Speci men Type: BLOOD SPECIMEN Ordering Facility: [facility] Address: [address] [address] Performed By: #### 2 4323-8, 3040-3 #### [facility] CLIA [id number] [address] [place] Calcium [Mass/Vol] 8.9 mg/dL Normal 8.5-10.2 [facility] Comment on above: Order Comment: Speci men Type: BLOOD SPECIMEN Ordering Facility: [facility] Address: [address] [address] Performed By: #### 2 [address], 0-3 #### [facility] CLIA [id number] [address] [place] Chloride [Moles/Vol] 108 mmol/L High 97-105 [facility] Comment on above: Order Comment: Speci men Type: BLOOD SPECIMEN Ordering Facility: [facility] Address: [address] [address] Performed By: #### 2 4328, 3039-3 #### [facility] CLIA [id number] [address] [place] CO2 [Moles/Vol] 26 mmol/L Normal 22-30 [facility] Comment on above: Order Comment: Speci men Type: BLOOD SPECIMEN Ordering Facility: [facility] Address: [address] [address] Performed By: #### 2 4328, 3039-3 #### [facility] CLIA [id number] [address] [place] Creatinine [Mass/Vol] 0.81 mg/dL Normal 0.58-0.96 [facility] Comment on above: Order Comment: Speci men Type: BLOOD SPECIMEN Ordering Facility: [facility] Address: [address] [address] Performed By: #### 2 4323-8, 0-3 #### [facility] CLIA [id number] [address] [place] Creatinine and Glomerular filtration rate.predicted panel (S/P/Bld) 98 mL/min/1.73m??? Normal >=60 [facility] Comment on above: Order Comment: Geraldo marrero Type: BLOOD SPECIMEN Ordering Facility: [facility] Address: [address] [place] [address] Result Comment: Jessica mated Glomerular Filtration Rate [...] Performed By: #### 2 4323-8, 3040-3 #### [facility] CLIA [id number] 1 [place] [address] [place] Glucose [Mass/Vol] 85 mg/dL Normal 74-99 [facility] Comment on above: Order Comment: Geraldo marrero Type: BLOOD SPECIMEN Ordering Facility: [facility] Address: [address] [place], [place] [address] Result Comment: The [place] Diabetes [employer] (ADA) provides guidance for cutoff [...] Standards of Medical Care in Diabetes 2016, [place] [employer]. Diabetes Care. 2016.39(Suppl 1). Performed By: #### 2 4323-8, 3040-3 #### [facility] CLIA [id number] 1 [place] [address] [place] Potassium [Moles/Vol] 4.3 mmol/L Normal 3.7-5.1 [facility] Comment on above: Order Comment: Geraldo marrero Type: BLOOD SPECIMEN Ordering Facility: [facility] Address: [address] [address] Performed By: #### 2 4323-8, 3040-3 #### [facility] CLIA [id number] [address] Protein [Mass/Vol] 6.4 g/dL Normal 6.3-8.0 [facility] Comment on above: Order Comment: Speci men Type: BLOOD SPECIMEN Ordering Facility: [facility] Address: [address] [place] [address] Performed By: #### 2 4323-8, 3040-3 #### [facility] CLIA [id number] [address] OF [facility] Sodium [Moles/Vol] 142 mmol/L Normal 136-144 [facility] Comment on above: Order Comment: Speci men Type: BLOOD SPECIMEN Ordering Facility: [facility] Address: [address] [place] [address] Performed By: #### 2 4323-8, 3040-3 #### [facility] CLIA [id number] [address] [place] Urea nitrogen [Mass/Vol] 8 mg/dL Normal 7-21 [facility] Comment on above: Order Comment: Speci men Type: BLOOD SPECIMEN Ordering Facility: [facility] Address: [address] [place] [address] Performed By: #### 2 4323-8, 3040-3 #### [facility] CLIA [id number] [address] [place] ED NOTEon 10-18-2022 ED NOTE HNO ID: [id number] Author: Serafin Curiel RN Service: ? Author Type: Registered Nurse Type: ED Notes Filed: 10/18/2022 10:46 AM Note Text: Provider previously at bedside discussing results/findings. Discharge instructions, follow up recommendations and medications reviewed with patient. Pt advised to return to ED with worsening symptoms. Pt verbalizes understanding. Stable and ambulatory upon d/c Normal [facility] ED NOTE HNO ID: [id number] Author: Alannah Carter RN Service: ? Author Type: Registered Nurse Type: ED Notes Filed: 10/18/2022 7:53 AM Note Text: Bed: 26-ED Expected date: Expected time: Means of arrival: Comments: TRIAGE Normal [facility] ED PROV NOTEon 10-18-2022 ED PROV NOTE HNO ID: [id number] Author: Alverto Barrett MD Service: Emergency Medicine [...] Bilateral arthroscopic knee surgery- was catcher in [employer] PAST SURGICAL HISTORY OF 08/2020 gastric sleeve [...] Lipase [Catalytic activity/Vol] 34 U/L Normal 16 [facility] [facility] Comment on above: Order Comment: Speci men Type: BLOOD SPECIMEN Ordering Facility: [facility] Address: [address] [address] Performed By: #### 2 4323-8, 3040-3 #### [facility] CLIA [id number] [address] Urinalysis complete panel (U )on 10-18-2022 Bilirubin Ql (U) Negative Normal Negative [facility] Comment on above: Order Comment: Speci men Type: URINE SPECIMEN Ordering Facility: [facility] Address: [address] [place] [address] Performed By: #### 2 4356-8 #### [facility] CLIA [id number] [address] [place] Clarity (Unsp spec) Clear Normal Clear [facility] Comment on above: Order Comment: Speci men Type: URINE SPECIMEN Ordering Facility: [facility] Address: [address] [address] Performed By: #### 2 4356-8 #### [facility] CLIA [id number] [address] Color (U) Light Yellow Normal yellow [facility] Comment on above: Order Comment: Speci men Type: URINE SPECIMEN Ordering Facility: [facility] Address: [address] [address] Performed By: #### 2 4356-8 #### [facility] CLIA [id number] [address] Epithelial cells LM.HPF (Urine sed) [#/Area] Few Normal [facility] Comment on above: Order Comment: Speci men Type: URINE SPECIMEN Ordering Facility: [facility] Address: [address] [address] Performed By: #### 2 4356-8 #### [facility] CLIA [id number] [address] Glucose Test strip (U) [Mass/Vol] Negative Normal Trace, Negative [facility] Comment on above: Order Comment: Speci men Type: URINE SPECIMEN Ordering Facility: [facility] Address: [address] [place] [address] Performed By: #### 2 4356-8 #### [facility] CLIA [id number] [address] Hemoglobin Ql (U) Negative Normal Negative, Trace [facility] Comment on above: Order Comment: Speci men Type: URINE SPECIMEN Ordering Facility: [facility] Address: [address] [address] Performed By: #### 2 4356-8 #### [facility] CLIA [id number] [address] Ketones Ql (U) Negative Normal Negative, Trace [facility] Comment on above: Order Comment: Speci men Type: URINE SPECIMEN Ordering Facility: [facility] Address: [address] [address] Performed By: #### 2 4356-8 #### [facility] CLIA [id number] [address] Leukocyte esterase Test strip Ql (U) Negative Normal Negative, 25 Patito/uL [facility] Comment on above: Order Comment: Speci men Type: URINE SPECIMEN Ordering Facility: [facility] Address: [address] [address] Performed By: #### 2 4356-8 #### [facility] CLIA [id number] [address] [place] Nitrite Ql (U) Negative Normal Negative [facility] Comment on above: Order Comment: Speci men Type: URINE SPECIMEN Ordering Facility: [facility] Address: [address] [place] [address] Performed By: #### 2 4356-8 #### [facility] CLIA [id number] [address] [place] pH (U) 7.5 [pH] Normal 5.0-8.0 [facility] Comment on above: Order Comment: Speci men Type: URINE SPECIMEN Ordering Facility: [facility] Address: [address] [place] [address] Performed By: #### 2 4356-8 #### [facility] CLIA [id number] [address] [place] [address] Protein (U) [Mass/Vol] Negative Normal Trace, Negative [facility] Comment on above: Order Comment: Speci men Type: URINE SPECIMEN Ordering Facility: [facility] Address: [address] [place] [address] Performed By: #### 2 4356-8 #### [facility] CLIA [id number] [address] [place] [address] [place] RBC LM.HPF (Urine sed) [#/Area] 0-3 /HPF Normal 0-3 /HPF [facility] Comment on above: Order Comment: Speci men Type: URINE SPECIMEN Ordering Facility: [facility] Address: [address] [place] [address] Performed By: #### 2 4356-8 #### [facility] CLIA [id number] [address] [place] Specific gravity (U) [Rel density] 1.008 Normal 1.005-1.030 [facility] Comment on above: Order Comment: Speci men Type: URINE SPECIMEN Ordering Facility: [facility] Address: [address] [place] [address] Performed By: #### 2 4356-8 #### [facility] CLIA [id number] [address] Urobilinogen Ql (U) Normal Normal Negative [facility] Comment on above: Order Comment: Speci men Type: URINE SPECIMEN Ordering Facility: [facility] Address: [address] [place] [address] Performed By: #### 2 4356-8 #### [facility] CLIA [id number] [address] WBC LM.HPF (Urine sed) [#/Area] 0-5 /HPF Normal 0-5 /HPF [facility] Comment on above: Order Comment: Speci men Type: URINE SPECIMEN Ordering Facility: [facility] Address: [address] [place] [address] Performed By: #### 2 4356-8 #### [facility] CLIA [id number] [address] Urinalysis w/ Microon 2022 Bilirubin, SemiQt,Ur Negative Normal NEG [facility] Comment on above: Performed By: #### U AMIC #### [facility] [address] [place] [address] Veterinary Radiologist: Baldomero Espinoza MD Blood, Urine Negative Normal NEG [facility] Comment on above: Performed By: #### U AMIC #### [facility] [address] [place] [address] Veterinary Radiologist: Baldomero Espinoza MD Clarity (U) Clear Normal CLEAR [facility] Comment on above: Performed By: #### U AMIC #### [facility] [address] [place] [address] Veterinary Radiologist: Baldomero Espinoza MD Color (U) Yellow Normal YEL [facility] Comment on above: Performed By: #### U AMIC #### [facility] [address] [place] [address] Veterinary Radiologist: Baldomero Espinoza MD Epithelial cells LM Ql (Urine sed) None Normal 0-25 [facility] Comment on above: Performed By: #### U AMIC #### [facility] [address] [place], [place] [id number] Veterinary Radiologist: Baldomero Espinoza MD Glucose Ql (U) Negative Normal NEG [facility] Comment on above: Performed By: #### U AMIC #### [facility] [address] [place], [place] [address] Veterinary Radiologist: Baldomero Espinoza MD Ketones Ql (U) Negative Normal NEG [facility] Comment on above: Performed By: #### U AMIC #### [facility] [address] [place] [address] [place], [place] [address] Veterinary Radiologist: Baldomero Espinoza MD Leukocyte esterase Test strip Ql (U) Negative Normal NEG [facility] Comment on above: Performed By: #### U AMIC #### [facility] [address] [place] [address] [place], [place] [address] Veterinary Radiologist: Baldomero Espinoza MD Nitrite,Ur Negative Normal NEG [facility] Comment on above: Performed By: #### U AMIC #### [facility] [address] [place] [address] [place] [place], [place] [id number] Veterinary Radiologist: Baldomero Espinoza MD PH,Ur 6.5 Normal 5.0-9.0 [facility] Comment on above: Performed By: #### U AMIC #### [facility] [address] [place], [place] [phone] Veterinary Radiologist: Baldomero Espinoza MD Protein Ql (U) Negative Normal NEG [facility] Comment on above: Performed By: #### U AMIC #### [facility] [address] [place], [place] [address] Veterinary Radiologist: Baldomero Espinoza MD Spec. Arjay,Ur 1.020 Normal 1.010-1.020 [facility] Comment on above: Performed By: #### U AMIC #### [facility] [address] [place], [place] [address] Veterinary Radiologist: Baldomero Espinoza MD Urine RBC's None Normal 0-2 [facility] Comment on above: Performed By: #### U AMIC #### [facility] [address] [place], [place] [address]83 Veterinary Radiologist: Baldomero Espinoza MD Urine WBC's None Normal 0-5 [facility] Comment on above: Performed By: #### U AMIC #### [facility] [address] [place], [place] [address] Veterinary Radiologist: Baldomero Espinoza MD Urobilinogen,Ur Normal Normal 0.0-1.0 [facility] Comment on above: Performed By: #### U AMIC #### [facility] [address] [place], [place] [phone] Veterinary Radiologist: Baldomero Espinoza MD Formson 10-08-2022 Forms [id number] 26#1.00CD:127 Normal [facility] Ambulatory Visit Summaryon 0 10-07-2022 Ambulatory Visit Summary Normal [address] [place] [address]- \.br\ Medications\.br\ What How Much When Why [...] PCOS- polycystic ovary syndrome\.br\ \.br\ [facility] Family Medicine Office/Clini c Noteon 10-07-2022 Family Medicine Office/Clinic Note Normal [facility] Comment on above: Result Comment: Elec tronically Signed By: Jaquan Paula\.br\Date and Time Signed: 10/07/22 16:37 EDT Operative Reporton Operative Report [id number] 4C#1.00CD:127 Normal [facility] C3 COMPLEMENT [facility] 06-13-19 Complement C3 [Mass/Vol] 140 mg/dL 86 - 166 mg/dL [facility] C4 COMPLEMENT [facility] 06-13-19 Complement C4 [Mass/Vol] 25 mg/dL 13 - 46 mg/dL [facility] CBC W Auto Differential pane l (Bld)on 06-12-2022 Basophils (Bld) [#/Vol] 0.04 10*3/uL <0.11 k/uL [facility] Basophils/100 WBC (Bld) 0.9 % [facility] Differential cell count method Nom (Bld) Auto [facility] Eosinophils (Bld) [#/Vol] 0.09 10*3/uL <0.46 k/uL [facility] Eosinophils/100 WBC (Bld) 2.0 % [facility] Erythrocyte distribution width (RBC) [Ratio] 12.8 % 11.5 - 15.0 % [facility] Hematocrit (Bld) [Volume fraction] 40.5 % 36.0 - 46.0 % [facility] Hemoglobin (Bld) [Mass/Vol] 13.4 g/dL 11.5 - 15.5 g/dL [facility] Immature granulocytes (Bld) [#/Vol] <0.10 k/uL [facility] Immature granulocytes/100 WBC (Bld) 0.2 % [facility] Lymphocytes (Bld) [#/Vol] 1.73 10*3/uL 1.00 - 4.00 k/uL [facility] Lymphocytes/100 WBC (Bld) 37.9 % [facility] MCH (RBC) [Entitic mass] 30.0 pg 26.0 - 34.0 pg [facility] MCHC (RBC) [Mass/Vol] 33.1 g/dL 30.5 - 36.0 g/dL [facility] MCV (RBC) [Entitic vol] 90.8 fL 80.0 - 100.0 fL [facility] Monocytes (Bld) [#/Vol] 0.23 10*3/uL <0.87 k/uL [facility] Monocytes/100 WBC (Bld) 5.0 % [facility] Neutrophils (Bld) [#/Vol] 2.46 10*3/uL 1.45 - 7.50 k/uL [facility] Neutrophils/100 WBC (Bld) 54.0 % [facility] Nucleated RBC (Bld) [#/Vol] <0.01 k/uL [facility] Nucleated RBC/100 WBC (Bld) [Ratio] 0.0 /100 WBC [facility] Platelet mean volume (Bld) [Entitic vol] 11.3 fL 9.0 - 12.7 fL [facility] Platelets (Bld) [#/Vol] 292 10*3/uL 150 - 400 k/uL [facility] RBC (Bld) [#/Vol] 4.46 10*6/uL 3.90 - 5.20 m/uL [facility] WBC (Bld) [#/Vol] 4.56 10*3/uL 3.70 - 11.00 k/u L [facility] CK CREATINE KINASEon 023 CK [Catalytic activity/Vol] 44 U/L 42 - 196 U/L [facility] Comprehensive metabolic 2000 panelon 06-12-2022 Albumin [Mass/Vol] 4.3 g/dL 3.9 - 4.9 g/dL [facility] ALP [Catalytic activity/Vol] 64 U/L 34 - 123 U/L [facility] ALT [Catalytic activity/Vol] 20 U/L 7 - 38 U/L [facility] Anion gap [Moles/Vol] 10 mmol/L 9 - 18 mmol/L [facility] AST [Catalytic activity/Vol] 33 U/L 13 - 35 U/L [facility] Bilirubin [Mass/Vol] 0.4 mg/dL 0.2 - 1.3 mg/dL [facility] Calcium [Mass/Vol] 9.3 mg/dL 8.5 - 10.2 mg/dL [facility] Chloride [Moles/Vol] 106 mmol/L High 97 - 105 mmol/L [facility] CO2 [Moles/Vol] 23 mmol/L 22 - 30 mmol/L [facility] Creatinine [Mass/Vol] 0.76 mg/dL 0.58 - 0.96 mg/dL [facility] Estimated Glomerular Filtration Rate 106 mL/min/1.73m >=60 mL/min/1.73m [facility] Glucose [Mass/Vol] 79 mg/dL 74 - 99 mg/dL [facility] Potassium [Moles/Vol] 4.0 mmol/L 3.7 - 5.1 mmol/L [facility] Protein [Mass/Vol] 6.9 g/dL 6.3 - 8.0 g/dL [facility] Sodium [Moles/Vol] 139 mmol/L 136 - 144 mmol/L [facility] Urea nitrogen [Mass/Vol] 9 mg/dL 7 - 21 mg/dL [facility] FERRITIN BLDon 06-12-2022 Ferritin [Mass/Vol] 36.6 ng/mL 14.7 - 205.1 ng/ mL [facility] FOLATE SERUMon 06-12-2022 Folate [Mass/Vol] 6.8 ng/mL >4.7 ng/mL [facility] Iron and Iron binding capaci ty panelon 06-12-2022 Iron [Mass/Vol] 100 ug/dL 41 - 186 ug/dL [facility] Iron binding capacity [Mass/Vol] 332 ug/dL 232 - 386 ug/dL [facility] Iron/TIBC [Molar ratio] 30.1 % 15.0 - 57.0 % [facility] MAGNESIUM BLDon 06-12-2022 Magnesium [Mass/Vol] 2.2 mg/dL 1.7 - 2.3 mg/dL [facility] RHEUMATOID FACTOR BLon 06-12 Rheumatoid factor Qn <16 IU/mL [facility] VITAMIN B12 BLOODon 06-13-19 Cobalamin (Vitamin B12) [Mass/Vol] 854 pg/mL 232 - 1,245 pg/mL [facility] CHEMISTRYOrdered By: SYSTEM SYSTEM on [...] Remisol CRP [Mass/Vol] 0.6 mg/dL Normal <=1.9mg/dL [facility] Remis ol GFR/1.73 sq M.predicted among non-blacks MDRD (S/P/Bld) [Vol rate/Area] 100 mL/min/1.73 m2 Normal >=59mL/min/1.73 m2 [facility] Chem S Glucose [Mass/Vol] 83 mg/dL Normal [...] 5.8 E9/L Normal 4.0 - 11.0 E9/L [facility] HemeAutoSS AMYLASEon 06-09-2022 Amylase [Catalytic activity/Vol] 41 U/L Normal 25-[address] [facility] Comment on above: Performed By: #### G RUBIN, LIPID #### [facility] [address] [address] [address] Stephan Tavares CBC AUTO DIFFon 06-09-2022 BASO # 0.0 103/ul Normal 0.0-0.[address] [facility] Comment on above: Performed By: #### G RUBIN, LIPID #### [facility] [address] [address] [address] Stephan Tavares Basophils/100 WBC (Bld) 0.7 % Normal 0.2-2.0 [facility] Comment on above: Performed By: #### G RUBIN, LIPID #### [facility] [address] [place] [address] Dr. Stephan Tavares EO # 0.1 103/ul Normal 0.0-0.7 [facility] Comment on above: Performed By: #### G RUBIN, LIPID #### [facility] [address] [place] [address] Dr. Stephan Tavares Eosinophils/100 WBC (Bld) 1.5 % Normal 0.9-7.0 [facility] Comment on above: Performed By: #### G RUBIN, LIPID #### [facility] [address] [place] [address] Dr. Stephan Tavares Erythrocyte distribution width (RBC) [Ratio] 13.1 % Normal 11.0-15.0 [facility] Comment on above: Performed By: #### G RUBIN, LIPID #### [facility] [address] [place] [address] Dr. Stephan Tavares Hematocrit (Bld) [Volume fraction] 43.2 % Normal 36.0-48.0 [facility] Comment on above: Performed By: #### G RUBIN, LIPID #### [facility] [address] [place] [address] Dr. Stephan Tavares Hemoglobin (Bld) [Mass/Vol] 14.6 g/dL Normal 12.0-16.0 [facility] Comment on above: Performed By: #### G RUBIN, LIPID #### [facility] [address] [place] [address] Dr. Stephan Tavares IG # 0.01 10e3/ul Normal 0.00-0.03 [facility] Comment on above: Performed By: #### G RUBIN, LIPID #### [facility] [address] [place] [address] Dr. Stephan Tavares IG % 0.2 % Normal 0.0-0.5 [facility] Comment on above: Performed By: #### G RUBIN, LIPID #### [facility] [address] [place] [address] Dr. Stephan Tavares LYMPH # 2.1 103/ul Normal 1.2-3.8 [facility] Comment on above: Performed By: #### G RUBIN, LIPID #### [facility] [address] [place] [address] Dr. Stephan Tavares Lymphocytes/100 WBC (Bld) 39.1 % Normal 20.5-60.0 [facility] Comment on above: Performed By: #### G RUBIN, LIPID #### [facility] [address] [place] [address] Dr. Stephan Tavares MANUAL DIFF REQ NO Normal [facility] Comment on above: Performed By: #### G RUBIN, LIPID #### [facility] [address] [place] [address] Dr. Stephan Tavares MCH (RBC) [Entitic mass] 30.2 pg Normal 26.7-34.0 [facility] Comment on above: Performed By: #### G RUBIN, LIPID #### [facility] [address] [place] [address] Dr. Stephan Tavares MCHC (RBC) [Mass/Vol] 33.8 g/dL Normal 29.9-35.2 [facility] Comment on above: Performed By: #### G RUBIN, LIPID #### [facility] [address] [place] [address] Dr. Stephan Tavares MCV (RBC) [Entitic vol] 89.3 fL Normal 81.0-99.0 [facility] Comment on above: Performed By: #### G RUBIN, LIPID #### [facility] [address] [place] [address] Dr. Stephan Tavares MONO # 0.3 103/ul Normal 0.3-0.8 [facility] Comment on above: Performed By: #### G RUBIN, LIPID #### [facility] [address] [place] [address] Dr. Stephan Tavares Monocytes/100 WBC (Bld) 5.2 % Normal 1.7-12.0 [facility] Comment on above: Performed By: #### G RUBIN, LIPID #### [facility] [address] [place] [address] Dr. Stephan Tavares NEUT # 2.9 103/ul Normal 1.4-6.[address] [facility] Comment on above: Performed By: #### G RUBIN, LIPID #### [facility] [address] [place] [address] Dr. Stephan Tavares Neutrophils/100 WBC (Bld) 53.3 % Normal 43.0-75.0 [facility] Comment on above: Performed By: #### G RUBIN, LIPID #### [facility] [address] [place] [address] Dr. Stephan Tavares Platelet mean volume (Bld) [Entitic vol] 10.9 fL Normal 9.5-13.5 [facility] Comment on above: Performed By: #### G RUBIN, LIPID #### [facility] [address] [place] [address] Dr. Stephan Tavares PLT 271 103/ul Normal 150-[address] [facility] Comment on above: Performed By: #### G RUBIN, LIPID #### [facility] [address] [place] [address] Dr. Stephan Tavares RBC 4.84 106/ul Normal 4.20-5.[address] [facility] Comment on above: Performed By: #### G RUBIN, LIPID #### [facility] [address] [place] [address] Dr. Stephan Tavares WBC 5.4 103/ul Normal 4.0-11.0 [facility] Comment on above: Performed By: #### G RUBIN, LIPID #### [facility] [address] [place] [address] ABD/PELVIS WO CONon [...] ALVERTO PHAM Date: 2022-06-09 16:[address] [facility] ER URINE PROFILEon 3 Bilirubin Ql (U) Negative Normal NEGATIVE [facility] Comment on above: Performed By: #### G RUBIN, LIPID #### [facility] [address] [address] [address] Stephan Tavares Clarity (U) CLEAR Normal CLEAR [facility] Comment on above: Performed By: #### G RUBIN, LIPID #### [facility] [address] [place] [address] Dr. Stephan Tavares Color (U) LT. YELLOW Normal YELLOW [facility] Comment on above: Performed By: #### G RUBIN, LIPID #### [facility] [address] [address] [address] Stephan Tavares ERUAHD A micrscopic examination will be performed if indicated. Normal [facility] Comment on above: Performed By: #### G RUBIN, LIPID #### [facility] [address] [address] [address] Stephan Tavares Glucose Ql (U) Negative Normal NEGATIVE [facility] Comment on above: Performed By: #### G RUBIN, LIPID #### [facility] [address] [address] [address] Stephan Tavares Hemoglobin Ql (U) Negative Normal NEGATIVE [facility] Comment on above: Performed By: #### G RUBIN, LIPID #### [facility] [address] [address] [address] Stephan Tavares Ketones Ql (U) Negative Normal NEGATIVE [facility] Comment on above: Performed By: #### G RUBIN, LIPID #### [facility] [address] [address] [address] Stephan Tavares LEUKOCYTES Negative Normal NEGATIVE [facility] Comment on above: Performed By: #### G RUBIN, LIPID #### [facility] [address] [address] [address] Stephan Tavares Nitrite Ql (U) Negative Normal NEGATIVE [facility] Comment on above: Performed By: #### G RUBIN, LIPID #### [facility] [address] [place] [address] Dr. Stephan Tavares pH (U) 7.5 [pH] Normal 5-[address] [facility] Comment on above: Performed By: #### G RUBIN, LIPID #### [facility] [address] [address] [address] Stephan Tavares SPEC GRAVITY 1.015 Normal 1.005-<=1.025 [facility] Comment on above: Performed By: #### G RUBIN, LIPID #### [facility] [address] [address] [address] Stephan Tavares UA PROTEIN Negative Normal NEGATIVE/ TRACE [facility] Comment on above: Performed By: #### G RUBIN, LIPID #### [facility] [address] [address] [address] Stephan Tavares UR MICRO IND NOT INDICATED Normal [facility] Comment on above: Performed By: #### G RUBIN, LIPID #### [facility] [address] [address] [address] Stephan Tavares Urobilinogen Qn (U) 0.2 {Munir'U}/dL Normal 0.2 - 1. 0 [facility] Comment on above: Performed By: #### G RUBIN, LIPID #### [facility] [address] [address] [address] Stephan Tavares LIPASEon 06-09-2022 Lipase [Catalytic activity/Vol] 120.0 U/L Normal 73.0-393.0 [facility] Comment on above: Performed By: #### G RUBIN, LIPID #### [facility] [address] [place] [address] Dr. Stephan Tavares PROF 14(COMP METB)on 023 Albumin [Mass/Vol] 4.4 g/dL Normal 3.4-5.0 [facility] Comment on above: Performed By: #### G RUBIN, LIPID #### [facility] [address] [place] [address] Dr. Stephan Tavares Albumin/Globulin [Mass ratio] 1.1 {ratio} Normal [facility] Comment on above: Performed By: #### G RUBIN, LIPID #### [facility] [address] [place] [address] Dr. Stephan Tavares ALP [Catalytic activity/Vol] 74 U/L Normal 46-116 [facility] Comment on above: Performed By: #### G RUBIN, LIPID #### [facility] [address] [place] [address] Dr. Stephan Tavares ALT [Catalytic activity/Vol] 40 U/L Normal 14-59 [facility] Comment on above: Performed By: #### G RUBIN, LIPID #### [facility] [address] [address] [address] Stephan Tavares Anion gap [Moles/Vol] 16.5 mmol/L Normal [facility] Comment on above: Performed By: #### G RUBIN, LIPID #### [facility] [address] [place] [address] Dr. Stephan Tavares AST [Catalytic activity/Vol] 45 U/L Critically high 15-37 [facility] Comment on above: Performed By: #### G RUBIN, LIPID #### [facility] [address] [place] [address] Dr. Stephan Tavares Bilirubin [Mass/Vol] 0.5 mg/dL Normal 0.2-1.0 [facility] Comment on above: Performed By: #### G RUBIN, LIPID #### [facility] [address] [address] [address] Stephan Tavares Calcium [Mass/Vol] 9.3 mg/dL Normal 8.5-10.1 [facility] Comment on above: Performed By: #### G RUBIN, LIPID #### [facility] [address] [address] [address] Stephan Tavares Chloride [Moles/Vol] 103 mmol/L Normal 98-107 [facility] Comment on above: Performed By: #### G RUBIN, LIPID #### [facility] [address] [address] [address] Stephan Tavares CO2 [Moles/Vol] 24.9 mmol/L Normal 21.0-32.0 [facility] Comment on above: Performed By: #### G RUBIN, LIPID #### [facility] [address] [address] [address] Stephan Tavares Creatinine [Mass/Vol] 0.88 mg/dL Normal 0.55-1.02 [facility] Comment on above: Performed By: #### G RUBIN, LIPID #### [facility] [address] [address] [address] Stephan Tavares EGFR-AF THAI >60 Normal >=60 [facility] Comment on above: Performed By: #### G RUBIN, LIPID #### [facility] [address] [address] [address] Stephan Tavares EGFR-NON AF THAI >60 Normal >=60 [facility] Comment on above: Performed By: #### G RUBIN, LIPID #### [facility] [address] [address] [address] Stephan Tavares Globulin (S) [Mass/Vol] 3.9 g/dL Normal [facility] Comment on above: Performed By: #### G RUBIN, LIPID #### [facility] [address] [address] [address] Stephan Tavares Glucose [Mass/Vol] 79 mg/dL Normal 74-106 [facility] Comment on above: Performed By: #### G RUBIN, LIPID #### [facility] [address] [address] [address] Stephan Tavares Potassium [Moles/Vol] 3.4 mmol/L Critically low 3.5-5.1 [facility] Comment on above: Performed By: #### G RUBIN, LIPID #### [facility] [address] [address] [address] Stephan Tavares Protein [Mass/Vol] 8.3 g/dL Critically high 6.4-8.2 [facility] Comment on above: Performed By: #### G RUBIN, LIPID #### [facility] [address] [address] [address] Stephan Tavares Sodium [Moles/Vol] 141 mmol/L Normal 136-145 [facility] Comment on above: Performed By: #### G RUBIN, LIPID #### [facility] [address] [address] [address] Stephan Tavares Urea nitrogen [Mass/Vol] 10.0 mg/dL Normal 7.0-18.0 [facility] Comment on above: Performed By: #### G RUBIN, LIPID #### [facility] [address] [address] [address] Stephan Tavares Urea nitrogen/Creatinine [Mass ratio] 11.4 mg/mg Normal [facility] Comment on above: Performed By: #### G RUBIN, LIPID #### [facility] [address] [address] [address] Stephan Tavares US PELVIS TRANSVAGon 023 [...] ALVERTO PHAM Date: 2022-06-09 17:[address] [facility] HLA B 27on 05-28-2022 HLA-B27 Negative Normal [facility] Comment on above: Result Comment: HLA- B*27 Negative B27 allele interpretation for all loci based on IMGT/HLA database version 3.44 This test was developed and its performance characteristics determined by [facility]. It has not been cleared or approved by the Food and Drug Administration. [facility] CLIA ID Number [id number] . This test was performed using PCR (Polymerase Chain Reaction)/SSOP (Sequence Specific Oligonucleotide Probes) technique. SBT (Sequence Based Typing) and/or SSP (Sequence Specific Primers) may be used as supplemental methods when necessary. Please contact [facility] Customer Service at if you have any questions. . Director of [facility] Laboratory Dr Tino Sampson, PhD Performed By: #### B MP, MG #### [facility] [address] [place] [address] Dr. Stephan Tavares LYME DISEASE, WESTERN BLOTon 05-27-2022 IgG P18 Ab. Absent [facility] Comment on above: Performed By: #### B MP, MG #### [facility] [address] [place] [address] Dr. Stephan Tavares IgG P23 Ab. Absent [facility] Comment on above: Performed By: #### B MP, MG #### [facility] [address] [place] [address] Dr. Stephan Tavares IgG P28 Ab. Absent [facility] Comment on above: Performed By: #### B MP, MG #### [facility] [address] [place] [address] Dr. Stephan Tavares IgG P30 Ab. Absent [facility] Comment on above: Performed By: #### B MP, MG #### [facility] [address] [place] [address] Dr. Stephan Tavares IgG P39 Ab. Absent [facility] Comment on above: Performed By: #### B MP, MG #### [facility] [address] [place] [address] Dr. Stephan Tavares IgG P41 Ab. Present Abnormal [facility] Comment on above: Performed By: #### B MP, MG #### [facility] [address] [place] [address] Dr. Stephan Tavares IgG P45 Ab. Absent Normal [facility] Comment on above: Performed By: #### B MP, MG #### [facility] [address] [place] [address] Dr. Stephan Tavares IgG P58 Ab. Absent Normal [facility] Comment on above: Performed By: #### B MP, MG #### [facility] [address] [place] [address] Dr. Stephan Tavares IgG P66 Ab. Absent [facility] Comment on above: Performed By: #### B MP, MG #### [facility] [address] [place] [address] Dr. Stephan Tavares IgG P93 Ab. Absent [facility] Comment on above: Performed By: #### B MP, MG #### [facility] [address] [place] [address] Dr. Stephan Tavares IgM P23 Ab. Present Abnormal [facility] Comment on above: Performed By: #### B MP, MG #### [facility] [address] [place] [address] Dr. Stephan Tavaers IgM P39 Ab. Absent [facility] Comment on above: Performed By: #### B MP, MG #### [facility] [address] [place] [address] Dr. Stephan Tavares IgM P41 Ab. Present Abnormal [facility] Comment on above: Performed By: #### B MP, MG #### [facility] [address] [place] [address] Dr. Stephan Tavares Lyme IgG WB Interp. Negative Normal [facility] Comment on above: Result Comment: Posi tive: 5 of the following Borrelia-specific bands: 18,23,28,30,39,41,45,58, 66, and 93. Negative: No bands or banding patterns which do not meet positive criteria. Performed By: #### B MP, MG #### [facility] [address] [place] [address] Dr. Stephan Tavares Lyme IgM WB Interp. Positive Abnormal [facility] Comment on above: Result Comment: Note [...] are those recommended by CDC/ASTPHLD. p23=Osp C, i34=jwdryoslz . Note: Sera from individuals with the following may cross react in the Lyme Line Blot assays: other spirochetal diseases (periodontal disease, leptospirosis, relapsing fever, yaws, and pinta); connective autoimmune (Rheumatoid Arthritis and Systemic Lupus Erythematosus and also individuals with Antinuclear Antibody); other infections (Cologne Spotted Fever; Prabhakar-Rangel Virus, and Cytomegalovirus). . . Please Note: Lyme immunoblot alone is not recommended for the diagnosis of Lyme disease. Current guidelines recommend the use of a two-tiered approach to Lyme serology testing to improve the sensitivity and specificity of testing. [facility] offers test code 911033 Lyme Disease Serology with Reflex to aid in the diagnosis of Lyme Disease. Performed By: #### B TOMMIE MG #### [facility] [address] [place] [address] Dr. Stephan Tavares MISAEL EIA W/REFLEX 9 BIOMARKER Son 05-25-2022 MISAEL Direct Negative Normal Negative [facility] Comment on above: Performed By: #### A NARF9 #### [facility] [address] [place] [address] Dr. Stephan Tavares SLE PROFILE Aon 05-25-2022 Anti-DNA (DS) Ab Qn 2 IU/mL Normal 0-9 [facility] Comment on above: Result Comment: Nega tive <5 Equivocal 5 - 9 Positive >9 Performed By: #### S RONALDO #### [facility] [address] [place] [address] Dr. Stephan Tavares Antichromatin Antibodies <0.2 Normal 0.0-0.9 [facility] Comment on above: Performed By: #### S RONALDO #### [facility] [address] [place] [address] Dr. Stephan Tavares RA Latex Turbid. <10.0 Normal <14.0 [facility] Comment on above: Performed By: #### S RONALDO #### [facility] [address] [address] [address] Stephan Tavares [employer]INEER Antibodies 0.3 AI Normal 0.0-0.9 [facility] Comment on above: Performed By: #### S RONALDO #### [facility] [address] [place] [address] Dr. Stephan Tavares Sjogren's Anti-SS-A <0.2 Normal 0.0-0.9 [facility] Comment on above: Performed By: #### S RONALDO #### [facility] [address] [place] [address] Dr. Stephan Dowdogrrodolfo's Anti-SS-B <0.2 Normal 0.0-0.9 [facility] Comment on above: Performed By: #### S RONALDO #### [facility] [address] [place] [address] Dr. Stephan Tavares Mc Antibodies <0.2 Normal 0.0-0.9 [facility] Comment on above: Performed By: #### S RONALDO #### [facility] [address] [place] [address] Dr. Stephan Tavares CBC AUTO DIFFon 05-22-2022 BASO # 0.0 103/ul Normal 0.0-0.1 [facility] Comment on above: Performed By: #### C BC #### [facility] [address] [place] [address] Dr. Stephan Tavares Basophils/100 WBC (Bld) 1.0 % Normal 0.2-2.0 [facility] Comment on above: Performed By: #### C BC #### [facility] [address] [place] [address] Dr. Stephan Tavares EO # 0.1 103/ul Normal 0.0-0.7 [facility] Comment on above: Performed By: #### C BC #### [facility] [address] [place] [address] Dr. Stephan Tavares Eosinophils/100 WBC (Bld) 1.3 % Normal 0.9-7.0 [facility] Comment on above: Performed By: #### C BC #### [facility] [address] [place] [address] Dr. Stephan Tavares Erythrocyte distribution width (RBC) [Ratio] 13.3 % Normal 11.0-15.0 [facility] Comment on above: Performed By: #### C BC #### [facility] [address] [place] [address] Dr. Stephan Tavares Hematocrit (Bld) [Volume fraction] 36.7 % Normal 36.0-48.0 [facility] Comment on above: Performed By: #### C BC #### [facility] [address] [place] [address] Dr. Stephan Tavares Hemoglobin (Bld) [Mass/Vol] 12.6 g/dL Normal 12.0-16.0 [facility] Comment on above: Performed By: #### C BC #### [facility] [address] [place] [address] Dr. Stephan Tavares IG # 0.00 10e3/ul Normal 0.00-0.03 [facility] Comment on above: Performed By: #### C BC #### [facility] [address] [place] [address] Dr. Stephan Tavares IG % 0.0 % Normal 0.0-0.[address] [facility] Comment on above: Performed By: #### C BC #### [facility] [address] [place] [address] Dr. Stephan Tavares LYMPH # 1.2 103/ul Normal 1.2-3.[address] [facility] Comment on above: Performed By: #### C BC #### [facility] [address] [place] [address] Dr. Stephan Tavares Lymphocytes/100 WBC (Bld) 30.9 % Normal 20.5-60.0 [facility] Comment on above: Performed By: #### C BC #### [facility] [address] [place] [address] Dr. Stephan Tavares MANUAL DIFF REQ NO Normal [facility] Comment on above: Performed By: #### C BC #### [facility] [address] [place] [address] Dr. Stephan Tavares MCH (RBC) [Entitic mass] 30.6 pg Normal 26.7-34.0 [facility] Comment on above: Performed By: #### C BC #### [facility] [address] [place] [address] Dr. Stephan Tavares MCHC (RBC) [Mass/Vol] 34.3 g/dL Normal 29.9-35.2 [facility] Comment on above: Performed By: #### C BC #### [facility] [address] [place] [address] Dr. Stephan Tavares MCV (RBC) [Entitic vol] 89.1 fL Normal 81.0-99.0 [facility] Comment on above: Performed By: #### C BC #### [facility] [address] [place] [address] Dr. Stephan Tavares MONO # 0.2 103/ul Critically low 0.3-0.8 [facility] Comment on above: Performed By: #### C BC #### [facility] [address] [place] [address] Dr. Stephan Tavares Monocytes/100 WBC (Bld) 5.9 % Normal 1.7-12.0 [facility] Comment on above: Performed By: #### C BC #### [facility] [address] [place] [address] Dr. Stephan Tavares NEUT # 2.4 103/ul Normal 1.4-6.[address] [facility] Comment on above: Performed By: #### C BC #### [facility] [address] [place] [address] Dr. Stephan Tavares Neutrophils/100 WBC (Bld) 60.9 % Normal 43.0-75.0 [facility] Comment on above: Performed By: #### C BC #### [facility] [address] [address] [address] Stephan Tavares Platelet mean volume (Bld) [Entitic vol] 10.9 fL Normal 9.5-13.5 [facility] Comment on above: Performed By: #### C BC #### [facility] [address] [address] [address] Stephan Tavares PLT 250 103/ul Normal 150-[address] [facility] Comment on above: Performed By: #### C BC #### [facility] [address] [address] [address] Stephan Tavares RBC 4.12 106/ul Critically low 4.20-5.40 [facility] Comment on above: Performed By: #### C BC #### [facility] [address] [place] [address] Dr. Stephan Tavares WBC 3.9 103/ul Critically low 4.0-11.0 [facility] Comment on above: Performed By: #### C BC #### [facility] [address] [place] [address] Dr. Stephan Tavares CRPon 05-22-2022 CRP [Mass/Vol] mg/L Normal <=1.0 [facility] Comment on above: Performed By: #### G RUBIN, LIPID #### [facility] [address] [place] [address] Dr. Stephan Tavares SED RATE WESTERGRENon 2022 SED RATE 4 mm/hr Normal <=[address] [facility] Comment on above: Performed By: #### S EDR #### [facility] [address] [place] [address] Dr. Stephan Tavares URIC ACID SERUMon 05-22-2022 Urate [Mass/Vol] 4.5 mg/dL Normal 2.6-6.0 [facility] Comment on above: Performed By: #### G RUBIN, LIPID #### [facility] [address] [place] [address] Dr. Stephan Tavares EGD - THERAPEUTIC, EUS, OR T UBE INTERVENTIONSon 03-06-2022 [facility] PELVIS AND TRANSVAGon US PELVIS AND TRANSVAG [...] BALDOMERO MARCELO Date: 2022-03-03 16:[address] [facility] CBC AUTO DIFFon 02-17-2022 BASO # 0.0 103/ul Normal 0.0-0.[address] [facility] Comment on above: Performed By: #### G RUBIN, LIPID #### [facility] [address] [place] [address] Dr. Stephan Tavares Basophils/100 WBC (Bld) 0.8 % Normal 0.2-2.0 [facility] Comment on above: Performed By: #### G RUBIN, LIPID #### [facility] [address] [address] [address] Stephan Tavares EO # 0.1 103/ul Normal 0.0-0.7 [facility] Comment on above: Performed By: #### G RUBIN, LIPID #### [facility] [address] [address] [address] Stephan Tavares Eosinophils/100 WBC (Bld) 2.0 % Normal 0.9-7.0 [facility] Comment on above: Performed By: #### G RUBIN, LIPID #### [facility] [address] [address] [address] Stephan Tavares Erythrocyte distribution width (RBC) [Ratio] 13.2 % Normal 11.0-15.0 [facility] Comment on above: Performed By: #### G RUBIN, LIPID #### [facility] [address] [place] [address] Dr. Stephan Tavares Hematocrit (Bld) [Volume fraction] 36.2 % Normal 36.0-48.0 [facility] Comment on above: Performed By: #### G RUBIN, LIPID #### [facility] [address] [place] [address] Dr. Stephan Tavares Hemoglobin (Bld) [Mass/Vol] 12.6 g/dL Normal 12.0-16.0 [facility] Comment on above: Performed By: #### G RUBIN, LIPID #### [facility] [address] [place] [address] Dr. Stephan Tavares IG # 0.00 10e3/ul Normal 0.00-0.03 [facility] Comment on above: Performed By: #### G RUBIN, LIPID #### [facility] [address] [place] [address] Dr. Stephan Tavares IG % 0.0 % Normal 0.0-0.5 [facility] Comment on above: Performed By: #### G RUBIN, LIPID #### [facility] [address] [place] [address] Dr. Stephan Tavares LYMPH # 2.3 103/ul Normal 1.2-3.8 [facility] Comment on above: Performed By: #### G RUBIN, LIPID #### [facility] [address] [place] [address] Dr. Stephan Tavares Lymphocytes/100 WBC (Bld) 46.3 % Normal 20.5-60.0 [facility] Comment on above: Performed By: #### G RUBIN, LIPID #### [facility] [address] [place] [address] Dr. Stephan Tavares MANUAL DIFF REQ NO Normal [facility] Comment on above: Performed By: #### G RUBIN, LIPID #### [facility] [address] [place] [address] Dr. Stephan Tavares MCH (RBC) [Entitic mass] 29.2 pg Normal 26.7-34.[address] [facility] Comment on above: Performed By: #### G RUBIN, LIPID #### [facility] [address] [place] [address] Dr. Stephan Tavares MCHC (RBC) [Mass/Vol] 34.8 g/dL Normal 29.9-35.[address] [facility] Comment on above: Performed By: #### G RUBIN, LIPID #### [facility] [address] [address] [address] Stephan Tavares MCV (RBC) [Entitic vol] 84.0 fL Normal 81.0-99.0 [facility] Comment on above: Performed By: #### G RUBIN, LIPID #### [facility] [address] [address] [address] Stephan Tavares MONO # 0.4 103/ul Normal 0.3-0.8 [facility] Comment on above: Performed By: #### G RUBIN, LIPID #### [facility] [address] [place] [address] Dr. Stephan Tavares Monocytes/100 WBC (Bld) 8.7 % Normal 1.7-12.0 [facility] Comment on above: Performed By: #### G RUBIN, LIPID #### [facility] [address] [place] [address] Dr. Stephan Tavares NEUT # 2.1 103/ul Normal 1.4-6.5 [facility] Comment on above: Performed By: #### G RUBIN, LIPID #### [facility] [address] [place] [address] Dr. Stephan Tavares Neutrophils/100 WBC (Bld) 42.2 % Critically low 43.0-75.0 [facility] Comment on above: Performed By: #### G RUBIN, LIPID #### [facility] [address] [place] [address] Dr. Stephan Tavares Platelet mean volume (Bld) [Entitic vol] 11.1 fL Normal 9.5-13.5 [facility] Comment on above: Performed By: #### G RUBIN, LIPID #### [facility] [address] [place] [address] Dr. Stephan Tavares PLT 228 103/ul Normal 150-[address] [facility] Comment on above: Performed By: #### G RUBIN, LIPID #### [facility] [address] [address] [address] Stephan Tavares RBC 4.31 106/ul Normal 4.20-5.[address] [facility] Comment on above: Performed By: #### G RUBIN, LIPID #### [facility] [address] [place] [address] Dr. Stephan Tavares WBC 5.1 103/ul Normal 4.0-11.0 [facility] Comment on above: Performed By: #### G RUBIN, LIPID #### [facility] [address] [place] [address] Dr. Stephan Tavares MAGNESIUMon 02-17-2022 Magnesium [Mass/Vol] 1.8 mg/dL Normal 1.8-2.4 [facility] Comment on above: Performed By: #### B MP, MG #### [facility] [address] [place] [address] Dr. Stephan Tavares PROF CHEM 8 (BAS METB)on Anion gap [Moles/Vol] 16.1 mmol/L Normal [facility] Comment on above: Performed By: #### B MP, MG #### [facility] [address] [place] [address] Dr. Stephan Tavares Calcium [Mass/Vol] 8.7 mg/dL Normal 8.5-10.1 [facility] Comment on above: Performed By: #### B MP, MG #### [facility] [address] [place] [address] Dr. Stephan Tavares Chloride [Moles/Vol] 104 mmol/L Normal 98-107 [facility] Comment on above: Performed By: #### B MP, MG #### [facility] [address] [place] [address] Dr. Stephan Tavares CO2 [Moles/Vol] 22.0 mmol/L Normal 21.0-32.0 [facility] Comment on above: Performed By: #### B MP, MG #### [facility] [address] [place] [address] Dr. Stephan Tavares Creatinine [Mass/Vol] 0.74 mg/dL Normal 0.55-1.02 [facility] Comment on above: Performed By: #### B MP, MG #### [facility] [address] [place] [address] Dr. Stephan Tavares EGFR-AF THAI >60 Normal >=60 [facility] Comment on above: Performed By: #### B MP, MG #### [facility] [address] [place] [address] Dr. Stephan Tavares EGFR-NON AF THAI >60 Normal >=60 [facility] Comment on above: Performed By: #### B MP, MG #### [facility] [address] [address] [address] Stephan Tavares Glucose [Mass/Vol] 88 mg/dL Normal 74-106 [facility] Comment on above: Performed By: #### B MP, MG #### [facility] [address] [address] [address] Stephan Tavares Potassium [Moles/Vol] 4.1 mmol/L Normal 3.5-5.1 [facility] Comment on above: Result Comment: spec imen hemolysed. result could be spurious. suggest repeat. Performed By: #### B MP, MG #### [facility] [address] [place] [address] Dr. Stephan Tavares Sodium [Moles/Vol] 138 mmol/L Normal 136-145 [facility] Comment on above: Performed By: #### B MP, MG #### [facility] [address] [place] [address] Dr. Stephan Tavares Urea nitrogen [Mass/Vol] 12.0 mg/dL Normal 7.0-18.0 [facility] Comment on above: Performed By: #### B MP, MG #### [facility] [address] [place] [address] Dr. Stephan Tavares Urea nitrogen/Creatinine [Mass ratio] 16.2 mg/mg Normal [facility] Comment on above: Performed By: #### B MP, MG #### [facility] [address] [place] [address] Dr. Stephan Tavares Basic metabolic 2000 panelon 01-28-2022 Anion gap [Moles/Vol] 10 mmol/L 9 - 18 mmol/L [facility] Calcium [Mass/Vol] 9.3 mg/dL 8.5 - 10.2 mg/dL [facility] Chloride [Moles/Vol] 105 mmol/L 97 - 105 mmol/L [facility] CO2 [Moles/Vol] 22 mmol/L 22 - 30 mmol/L [facility] Creatinine [Mass/Vol] 0.68 mg/dL 0.58 - 0.96 mg/dL [facility] Estimated Glomerular Filtration Rate 119 mL/min/1.73m >=60 mL/min/1.73m [facility] Glucose [Mass/Vol] 77 mg/dL 74 - 99 mg/dL [facility] Potassium [Moles/Vol] 4.3 mmol/L 3.7 - 5.1 mmol/L [facility] Sodium [Moles/Vol] 137 mmol/L 136 - 144 mmol/L [facility] Urea nitrogen [Mass/Vol] 9 mg/dL 7 - 21 mg/dL [facility] CBC panel Auto (Bld)on 01-28 Erythrocyte distribution width (RBC) [Ratio] 13.3 % 11.5 - 15.0 % [facility] Hematocrit (Bld) [Volume fraction] 42.9 % 36.0 - 46.0 % [facility] Hemoglobin (Bld) [Mass/Vol] 14.6 g/dL 11.5 - 15.5 g/dL [facility] MCH (RBC) [Entitic mass] 29.8 pg 26.0 - 34.0 pg [facility] MCHC (RBC) [Mass/Vol] 34.0 g/dL 30.5 - 36.0 g/dL [facility] MCV (RBC) [Entitic vol] 87.6 fL 80.0 - 100.0 fL [facility] Nucleated RBC (Bld) [#/Vol] <0.01 k/uL [facility] Platelet mean volume (Bld) [Entitic vol] 11.4 fL 9.0 - 12.7 fL [facility] Platelets (Bld) [#/Vol] 247 10*3/uL 150 - 400 k/uL [facility] RBC (Bld) [#/Vol] 4.90 10*6/uL 3.90 - 5.20 m/uL [facility] WBC (Bld) [#/Vol] 4.05 10*3/uL 3.70 - 11.00 k/u L [facility] EKGon 01-28-2022 Atrial Rate 61 BPM [facility] Calculated P [place] 76 degrees [facility] Calculated R [place] [address] [facility] Calculated T [place] [address] [facility] P-R Interval 144 ms [facility] QRS Duration 86 ms [facility] QT Interval 424 ms [facility] QTC Calculation (Bazett) 426 ms [facility] Ventricular Rate [address] [facility] TYPE AND SCREEN,30 DAYon ABO O [facility] HIstorical Ab Scr Status Negative [facility] Rh Nom (Bld) Positive [facility] EGD - THERAPEUTIC, EUS, OR T UBE INTERVENTIONSon 12-25-2021 [facility] METANEPHRINES PLASMA FREEon 11-01-2021 Metanephrine, Pl <10.0 Normal 0.0-88.0 [facility] Comment on above: Performed By: #### G RUBIN, LIPID #### [facility] [address] [place] [address] Dr. Stephan Tavares Normetanephrine, Pl 19.4 pg/mL Normal 0.0-210.1 [facility] Comment on above: Performed By: #### G RUBIN, LIPID #### [facility] [address] [address] [address] Stephan Tavares CORTISOLon 10-28-2021 Cortisol 4.6 ug/dL Normal [facility] Comment on above: Result Comment: Wesley isol AM 6.2 - 19.4 Cortisol PM 2.3 - 11.9 Performed By: #### C ORTISO #### [facility] [address] [address] [address] Stephan Tavares CBC AUTO DIFFon 10-27-2021 BASO # 0.0 103/ul Normal 0.0-0.1 [facility] Comment on above: Performed By: #### G RUBIN, LIPID #### [facility] [address] [address] [address] Stephan Tavares Basophils/100 WBC (Bld) 0.5 % Normal 0.2-2.0 [facility] Comment on above: Performed By: #### G RUBIN, LIPID #### [facility] [address] [address] [address] Stephan Tavares EO # 0.0 103/ul Normal 0.0-0.7 [facility] Comment on above: Performed By: #### G RUBIN, LIPID #### [facility] [address] [place] [address] Dr. Stephan Tavares Eosinophils/100 WBC (Bld) 0.5 % Critically low 0.9-7.0 [facility] Comment on above: Performed By: #### G RUBIN, LIPID #### [facility] [address] [place] [address] Dr. Stephan Tavares Erythrocyte distribution width (RBC) [Ratio] 12.8 % Normal 11.0-15.0 [facility] Comment on above: Performed By: #### G RUBIN, LIPID #### [facility] [address] [place] [address] Dr. Stephan Tavares Hematocrit (Bld) [Volume fraction] 37.5 % Normal 36.0-48.0 [facility] Comment on above: Performed By: #### G RUBIN, LIPID #### [facility] [address] [place] [address] Dr. Stephan Tavares Hemoglobin (Bld) [Mass/Vol] 12.9 g/dL Normal 12.0-16.0 [facility] Comment on above: Performed By: #### G RUBIN, LIPID #### [facility] [address] [place] [address] Dr. Stephan Tavraes IG # 0.01 10e3/ul Normal 0.00-0.03 [facility] Comment on above: Performed By: #### G RUBIN, LIPID #### [facility] [address] [place] [address] Dr. Stephan Tavares IG % 0.2 % Normal 0.0-0.[address] [facility] Comment on above: Performed By: #### G RUBIN, LIPID #### [facility] [address] [place] [address] Dr. Stephan Tavares LYMPH # 1.9 103/ul Normal 1.2-3.[address] [facility] Comment on above: Performed By: #### G RUBIN, LIPID #### [facility] [address] [place] [address] Dr. Stephan Tavares Lymphocytes/100 WBC (Bld) 34.6 % Normal 20.5-60.0 [facility] Comment on above: Performed By: #### G RUBIN, LIPID #### [facility] [address] [place] [address] Dr. Stephan Tavares MANUAL DIFF REQ NO Normal [facility] Comment on above: Performed By: #### G RUBIN, LIPID #### [facility] [address] [place] [address] Dr. Stephan Tavares MCH (RBC) [Entitic mass] 30.3 pg Normal 26.7-34.0 [facility] Comment on above: Performed By: #### G RUBIN, LIPID #### [facility] [address] [place] [address] Dr. Stephan Tavares MCHC (RBC) [Mass/Vol] 34.4 g/dL Normal 29.9-35.2 [facility] Comment on above: Performed By: #### G RUBIN, LIPID #### [facility] [address] [place] [address] Dr. Stephan Tavares MCV (RBC) [Entitic vol] 88.0 fL Normal 81.0-99.0 [facility] Comment on above: Performed By: #### G RUBIN, LIPID #### [facility] [address] [place] [address] Dr. Stephan Tavares MONO # 0.4 103/ul Normal 0.3-0.8 [facility] Comment on above: Performed By: #### G RUBIN, LIPID #### [facility] [address] [place] [address] Dr. Stephan Tavares Monocytes/100 WBC (Bld) 6.6 % Normal 1.7-12.[address] [facility] Comment on above: Performed By: #### G RUBIN, LIPID #### [facility] [address] [place] [address] Dr. Stephan Tavares NEUT # 3.2 103/ul Normal 1.4-6.[address] [facility] Comment on above: Performed By: #### G RUBIN, LIPID #### [facility] [address] [place] [address] Dr. Stephan Tavares Neutrophils/100 WBC (Bld) 57.6 % Normal 43.0-75.0 [facility] Comment on above: Performed By: #### G RUBIN, LIPID #### [facility] [address] [address] [address] Stephan Tavares Platelet mean volume (Bld) [Entitic vol] 10.6 fL Normal 9.5-13.5 [facility] Comment on above: Performed By: #### G RUBIN, LIPID #### [facility] [address] [place] [address] Dr. Stephan Tavares PLT 249 103/ul Normal 150-450 [facility] Comment on above: Performed By: #### G RUBIN, LIPID #### [facility] [address] [place] [address] Dr. Stephan Tavares RBC 4.26 106/ul Normal 4.20-5.40 [facility] Comment on above: Performed By: #### G RUBIN, LIPID #### [facility] [address] [place] [address] Dr. Stephan Tavares WBC 5.6 103/ul Normal 4.0-11.0 [facility] Comment on above: Performed By: #### G RUBIN, LIPID #### [facility] [address] [place] [address] Dr. Stephan Tavares FREE T3on 10-27-2021 FREE T3 3.25 pg/mlL Normal 2.18-3.98 [facility] Comment on above: Performed By: #### G RUBIN, LIPID #### [facility] [address] [place] [address] Dr. Stephan Tavares FREE T4on 10-27-2021 Free T4 [Mass/Vol] 1.45 ng/dL Normal 0.76-1.46 [facility] Comment on above: Performed By: #### G RUBIN, LIPID #### [facility] [address] [place] [address] Dr. Stephan Tavares PROF CHEM 8 (BAS METB)on Anion gap [Moles/Vol] 13.1 mmol/L Normal [facility] Comment on above: Performed By: #### T SH, FT3, BMP #### [facility] [address] [address] [address] Stephan Tavares Calcium [Mass/Vol] 8.7 mg/dL Normal 8.5-10.1 [facility] Comment on above: Performed By: #### T SH, FT3, BMP #### [facility] [address] [place] [address] Dr. Stephan Tavares Chloride [Moles/Vol] 104 mmol/L Normal 98-[address] [facility] Comment on above: Performed By: #### T SH, FT3, BMP #### [facility] [address] [place] [address] Dr. Stephan Tavares CO2 [Moles/Vol] 25.3 mmol/L Normal 21.0-32.0 [facility] Comment on above: Performed By: #### T SH, FT3, BMP #### [facility] [address] [place] [address] Dr. Stephan Tavares Creatinine [Mass/Vol] 0.69 mg/dL Normal 0.55-1.02 [facility] Comment on above: Performed By: #### T SH, FT3, BMP #### [facility] [address] [place] [address] Dr. Stephan Tavares EGFR-AF THAI >60 Normal >=60 [facility] Comment on above: Performed By: #### T SH, FT3, BMP #### [facility] [address] [place] [address] Dr. Stephan Tavares EGFR-NON AF THAI >60 Normal >=[address] [facility] Comment on above: Performed By: #### T SH, FT3, BMP #### [facility] [address] [place] [address] Dr. Stephan Tavares Glucose [Mass/Vol] 87 mg/dL Normal 74-106 [facility] Comment on above: Performed By: #### T SH, FT3, BMP #### [facility] [address] [place] [address] Dr. Stephan Tavares Potassium [Moles/Vol] 3.4 mmol/L Critically low 3.5-5.1 [facility] Comment on above: Performed By: #### T SH, FT3, BMP #### [facility] [address] [address] [address] Stephan Tavares Sodium [Moles/Vol] 139 mmol/L Normal 136-145 [facility] Comment on above: Performed By: #### T SH, FT3, BMP #### [facility] [address] [address] [address] Stephan Tavares Urea nitrogen [Mass/Vol] 9.0 mg/dL Normal 7.0-18.0 [facility] Comment on above: Performed By: #### T SH, FT3, BMP #### [facility] [address] [place] [address] Dr. Stephan Tavares Urea nitrogen/Creatinine [Mass ratio] 13.0 mg/mg Normal [facility] Comment on above: Performed By: #### T JENI, FT3, BMP #### [facility] [address] [place] [address] Dr. Stephan Tavares TSHon 10-27-2021 TSH Qn m[IU]/L Critically low 0.358-3.740 [facility] Comment on above: Performed By: #### G RUBIN, LIPID #### [facility] [address] [place] [address] SINUSES WO CONon [...] by: ALVERTO PHAM Date: 2021-10-06 06:19 Normal [facility] Dental Nerve Blockon 022 Pablo Atwood DO 08/30/2021 4:20 AM Dental Nerve Block Date/Time: 08/30/2021 4:19 AM Performed by: Pablo Atwood DO Authorized by: Pablo Atwood DO Consent: Consent obtained: Verbal Consent given by: Patient Risks, benefits, and alternatives were discussed: yes [place] protocol: Patient identity confirmed: Verbally with patient Indications: Indications: dental pain Location: Block type: Posterior superior alveolar Laterality: Left Procedure details: Syringe type: Controlled syringe Needle gauge: 27 G Anesthetic injected: Bupivacaine 0.5% WITH epi Post-procedure details: Outcome: Anesthesia achieved Procedure completion: Tolerated well, no immediate complications [facility] Work Phone: [facility] Pressable Phone: GLUCOSE BLOODon 08-21-2021 Glucose [Mass/Vol] 79 mg/dL Normal 74-106 [facility] Comment on above: Performed By: #### G RUBIN, LIPID #### [facility] [address] [address] [address] Stephan Tavares LIPID PROFILEon 08-21-2021 CHOL-HDL RATIO NORM SEE BELOW Normal [facility] Comment on above: Result Comment: 3.3 - 4.4 LOW RISK 4.4 - 7.1 AVERAGE RISK 7.1 - 11.0 MODERATE RISK >11.0 HIGH RISK Performed By: #### G RUBIN, LIPID #### [facility] [address] [address] [address] Stephan Tavares Cholesterol [Mass/Vol] 163 mg/dL Normal <=200 [facility] Comment on above: Performed By: #### G RUBIN, LIPID #### [facility] [address] [address] [address] Stephan Tavares Cholesterol in HDL [Mass/Vol] 71 mg/dL Critically high 40-60 [facility] Comment on above: Performed By: #### G RUBIN, LIPID #### [facility] [address] [address] [address] Stephan Tavares Cholesterol in LDL [Mass/Vol] 67.8 mg/dL Normal [facility] Comment on above: Performed By: #### G RUBIN, LIPID #### [facility] [address] [address] [address] Stephan Tavares Cholesterol.total/C holesterol in HDL [Mass ratio] 2.3 {ratio} Normal [facility] Comment on above: Performed By: #### G RUBIN, LIPID #### [facility] [address] [address] [address] Stephan Tavares HDL NORMAL > or = 60 mg/dl - LOW CARDIOVASCULAR RISK <40 mg/dl - HIGH CARDIOVASCULAR RISK Normal [facility] Comment on above: Performed By: #### G RUBIN, LIPID #### [facility] [address] [address] [address] Stephan Tavares LDL CALC NORMAL SEE BELOW Normal [facility] Comment on above: Result Comment: <100 mg/dl OPTIMAL 100 - 129 mg/dl NEAR OR ABOVE OPTIMAL 130 - 159 mg/dl BORDERLINE HIGH 160 - 189 mg/dl HIGH >190 mg/dl VERY HIGH Performed By: #### G RUBIN, LIPID #### [facility] [address] [address] [address] Stephan Tavares Triglyceride [Mass/Vol] 121 mg/dL Normal <=[address] [facility] Comment on above: Performed By: #### G RUBIN, LIPID #### [facility] [address] [address] [address] Stephan Tavares VLDL CALC 24.2 mg/dL Normal [facility] Comment on above: Performed By: #### G RUBIN, LIPID #### [facility] [address] [address] [address] Stephan Tavares US SINGLE QUAD RT [...] ALVERTO PHAM Date: 2021-08-21 17:[address] [facility] XR SINUSES 3 VIEWS OR GREATE [...] ALVERTO PHAM Date: 2021-08-20 13:[address] [facility] Glucose - FINGER STICKon Glucose [Mass/Vol] 84 mg/dL [employer] Other VAGINITIS/VAGINOSIS DNA PROB Ryder 08-01-2021 Alea species Positive Abnormal Negative [facility] Comment on above: Performed By: #### G RUBIN, LIPID #### [facility] [address] [place], [place] [address] Dr. Stephan Tavares Gardnerella vaginalis Negative Normal Negative [facility] Comment on above: Performed By: #### G RUBIN, LIPID #### [facility] [address] [place], [place] [address] Dr. Stephan Tavares Trichomonas vaginalis Negative Normal Negative [facility] Comment on above: Performed By: #### G RUBIN, LIPID #### [facility] [address] [place], [place] [address] Dr. Stephan Tavares APTTon 07-27-2021 aPTT Coag (Bld) [Time] 30.9 s [facility] Comment on above: IV Heparin Therapy Range: 62.0-94.0 CBC with Auto Differentialon 07-27-2021 Absolute Eos # 0.06 [facility] Absolute Immature Granulocyte <0.03 [facility] Absolute Lymph # 1.49 [facility] Absolute Nelson # 0.27 [facility] Basophils (Bld) [#/Vol] 0.04 10*3/uL [facility] Basophils/100 WBC (Bld) 1 % 0 - 2 % [facility] Eosinophils/100 WBC (Bld) 1 % 1 - 4 % [facility] Hematocrit (Bld) [Volume fraction] 38.8 % 36.3 - 47.1 % [facility] Hemoglobin (Bld) [Mass/Vol] 12.7 g/dL 11.9 - 15.1 g/dL [facility] Immature granulocytes/100 WBC (Bld) 0 % 0 [facility] Interpretation and review of laboratory results Abnormal [facility] Lymphocytes/100 WBC (Bld) 36 % 24 - 43 % [facility] MCH (RBC) [Entitic mass] 28.9 pg 25.2 - 33.5 pg [facility] MCHC (RBC) [Mass/Vol] 32.7 g/dL 28.4 - 34.8 g/dL [facility] MCV (RBC) [Entitic vol] 88.4 fL 82.6 - 102.9 fL [facility] Monocytes/100 WBC (Bld) 6 % 3 - 12 % [facility] NRBC Automated 0.0 0.0 per 100 WBC [facility] Platelet distribution width (Bld) [Ratio] 14.5 % High 11.8 - 14.4 % [facility] Platelet mean volume (Bld) [Entitic vol] 10.8 fL 8.1 - 13.5 fL [facility] Platelets (Bld) [#/Vol] 251 10*3/uL [facility] RBC (Bld) [#/Vol] 4.39 10*6/uL 3.95 - 5.11 m/uL [facility] Segmented neutrophils/100 WBC (Bld) 56 % 36 - 65 % [facility] Segs Absolute 2.33 [facility] WBC (Bld) [#/Vol] 4.2 10*3/uL [facility] CT ABDOMEN PELVIS W IV CONTR [...] is no acute osseous abnormality. [facility] Devon Moura MD - 07/27/2021 [...] IMPRESSION: No acute abdominal or pelvic abnormality. [employer] Work Phone: Radiology Study observation (narrative) [employer] Phone: CT ABDOMEN PELVIS W IV CONTR AST Additional Contrast? NoneOrdered By: Devon Moura on 07-27-2021 [employer] Phone: Comprehensive Metabolic Pane l w/ Reflex to MGon 07-27-2021 Albumin [Mass/Vol] 4.7 g/dL 3.5 - 5.2 g/dL [facility] [employer] Albumin/Globulin [Mass ratio] 1.8 {ratio} [facility] ALP (Bld) [Catalytic activity/Vol] 62 U/L 35 - 104 U/L [facility] ALT [Catalytic activity/Vol] 14 U/L 5 - 33 U/L [facility] Anion gap [Moles/Vol] 11 mmol/L 9 - 17 mmol/L [facility] AST [Catalytic activity/Vol] 18 U/L <32 [facility] Bilirubin [Mass/Vol] 0.52 mg/dL 0.3 - 1.2 mg/dL [facility] Calcium [Mass/Vol] 9.5 mg/dL 8.6 - 10.4 mg/dL [facility] Chloride [Moles/Vol] 101 mmol/L 98 - 107 mmol/L [facility] CO2 [Moles/Vol] 25 mmol/L 20 - 31 mmol/L [facility] Creatinine [Mass/Vol] 0.76 mg/dL 0.50 - 0.90 mg/dL [facility] Free PSA/Total PSA [Mass fraction] 7.3 g/dL 6.4 - 8.3 g/dL [facility] GFR >60 >60 mL/min [facility] GFR Non- >60 >60 mL/min [facility] Glucose [Mass/Vol] 86 mg/dL 70 - 99 mg/dL [facility] Interpretation and review of laboratory results Abnormal [facility] Potassium [Moles/Vol] 4.0 mmol/L 3.7 - 5.3 mmol/L [facility] Sodium [Moles/Vol] 137 mmol/L 135 - 144 mmol/L [facility] Urea nitrogen (BldV) [Mass/Vol] 16 mg/dL 6 - 20 mg/dL [facility] Urea nitrogen/Creatinine (Bld) [Mass ratio] 21 High [facility] Laboratory - Chemistry and C hemistry - challengeon 07-27-2021 GFR/1.73 sq M.predicted MDRD (S/P/Bld) [Vol rate/Area] [facility] Comment on above: Average GFR for 30-3 9 years old: 107 mL/min/1.73sq m Chronic Kidney Disease: <60 mL/min/1.73sq m Kidney failure: <15 mL/min/1.73sq m eGFR calculated using average adult body mass. Additional eGFR calculator available at: http://www.Scho[employer]/multiple_crcl_2012.htm Stage 1: Some kidney damage normal GFR Stage 2: Mild kidney damage GFR 60-89 Stage 3: Moderate kidney damage GFR 30-59 Stage 4: Severe kidney damage GFR 15-29 Stage 5: Severe kidney damage GFR <15 ESRD - chronic treatment by dialysis or transplant Lactic Acidon 07-27-2021 Lactate [Moles/Vol] 1 mmol/L 0.5 - 2.2 mmol/L [facility] Lipaseon 07-27-2021 Lipase [Catalytic activity/Vol] 49 U/L 13 - 60 U/L [facility] Microscopic Urinalysison - [facility] Epithelial Cells UA 0 TO 2 [facility] RBC, UA 0 TO 2 [facility] WBC, UA 0 TO 2 [facility] No Panel Informationon 07-27 [facility] Protime-INRon 07-27-2021 INR Coag (Bld) [Relative time] 1.1 {INR} [facility] Comment on above: Non-therapeutic Range: INR = 0.9-1.2 Therapeutic Range: Moderate Anticoagulant Intensity: INR = 2.0-3.0 High Anticoagulant Intensity: INR = 2.5-3.5 PT Coag (PPP) [Time] 14.2 s [facility] Urinalysis with Reflex to Cu ltureon 07-27-2021 Bilirubin Urine Negative NEGATIVE [facility] Color, UA Yellow Yellow [facility] Glucose, Ur Negative NEGATIVE Latinda [facility] Ketones Ql (U) Negative NEGATIVE [facility] Leukocyte esterase Test strip Ql (U) Negative NEGATIVE [facility] Nitrite, Urine Negative NEGATIVE [facility] pH, UA 7.5 [facility] Protein, UA Negative NEGATIVE Latinda [facility] Specific Arjay, UA 1.010 [facility] Turbidity UA Clear Clear [facility] Urine Hgb Negative NEGATIVE [facility] Urobilinogen, Urine Normal Normal DIEGO Barber [facility] XR CHEST PORTABLEon 07-28-19 No acute process. [facility] EXAMINATION: ONE XRAY VIEW OF THE [...] The osseous structures are without acute process. [facility] Goldie Grande MD - 07/27/2021 EXAMINATION: [...] without acute process. IMPRESSION: No acute process. [facility] Work Phone: Radiology Study observation (narrative) [facility] [employer] Work Phone: XR CHEST PORTABLEOrdered By: Goldie Grande on 07-27-2021 [facility] [employer] Work Phone: XR HIP GENERAL 3V PELV/AP/LA T RIGHTon 06-18-2021 [facility] XR chest 2V*on 03-31-2021 XR chest 2V* [facility] [employer] Other XR chest 2V* [facility] [employer] Other XR chest 2V* [address] [place] [address] [employer] Other XR chest 2V* [place] [id number] [place] [address] [employer] Other XR chest 2V* XRay Report [employer] Other XR chest 2V* Signed [employer] Other XR chest 2V* Patient: Abbey Garcia MR#: [id number] [employer] Other XR chest 2V* : 1990 Acct:[id number] [employer] Other XR chest 2V* Age/Sex: 30 / F ADM Date: 03/31/21 [employer] Other XR chest 2V* Loc: [facility] Room: Type: [facility] [employer] [employer] Other XR chest 2V* [facility] Dr[facility] [employer] Other XR chest 2V* Ordering Provider: SHANNA JUNE [facility] [employer] Other XR chest 2V* Date of Service: 03/31/21 [employer] Other XR chest 2V* XR/XR chest 2V*: SOB (shortness of breath) [employer] Other XR chest 2V* Copies to: [facility] [employer] Other XR chest 2V* PA AND LATERAL CHEST: [employer] Other XR chest 2V* CLINICAL HISTORY: Wheezing and shortness of breath [employer] Other XR chest 2V* COMPARISON: 03/05/2020 [employer] Other XR chest 2V* There is no focal parenchymal consolidation, effusion or pneumothorax. The cardiac, hilar and [employer] Other XR chest 2V* mediastinal silhouettes are within normal limits. There is no vascular congestion. The [employer] Other XR chest 2V* visualized bony thorax is intact. [employer] Other XR chest 2V* XR/XR chest 2V* [employer] Other XR chest 2V* IMPRESSION: [employer] Other XR chest 2V* NO ACUTE CARDIOPULMONARY ABNORMALITY. [employer] Other XR chest 2V* Impression dictated by: Maricruz Hutchinson M.D.03/31/2021 11:32 AM [employer] Other XR chest 2V* Dictation Location: [facility]-- [employer] Other XR chest 2V* Transcribed By: SULEMA 03/31/21 [facility] [employer] Other XR chest 2V* Dictated By: Maricruz Hutchinson MD 03/31/21 [facility] [employer] Other XR chest 2V* Signed By: [employer] Other XR chest 2V* 03/31/21 [facility] [employer] Other Urinalysis - AUTOMATEDon Appearance (U) clear [employer] Other Bilirubin Ql (U) Negative [employer] Other Color (U) yellow [employer] Other Glucose Ql (U) Negative [employer] Other Hemoglobin Ql (U) Negative [employer] Other Ketones Ql (U) Negative [employer] Other Leukocyte esterase Test strip Ql (U) Negative [employer] Other Nitrite Ql (U) Negative [employer] Other pH (U) 7.0 [pH] [employer] Other Protein Ql (U) Negative [employer] Other Specific gravity (U) [Rel density] 1.015 [employer] Other Urobilinogen (U) [Mass/Vol] 0.2 mg/dL [employer] Other XR FINGER RIGHT (MIN 2 VIEWS )Ordered By: Vicky Olmedo on 12-14-2020 No acute osseous abnormality. [employer] Phone: EXAMINATION: THREE XRAY VIEWS OF THE RIGHT FINGERS 12/14/2020 3:26 pm COMPARISON: None. HISTORY: ORDERING SYSTEM PROVIDED HISTORY: shut right thumb in car door TECHNOLOGIST PROVIDED HISTORY: shut right thumb in car door FINDINGS: There is no evidence of acute fracture. There is normal alignment. No acute joint abnormality. No focal osseous lesion. No focal soft tissue abnormality. [employer] Phone: Yusuf, Mhpn Incoming Radiant Results From [employer] - 12/14/2020 3:33 PM EDT EXAMINATION: THREE [...] tissue abnormality. IMPRESSION: No acute osseous abnormality. [employer] Phone: [employer] Phone: CBC, EDIF, PLATELETOrdered B y: Juanito Laird on 07-02-2020 ABSOLUTE BASOPHIL COUNT 0.0 10*3/uL 0.0 - 0.2 10*3/uL [employer] [facility] Basophils/100 WBC (Bld) 0.6 % 0.0 - 2.0 % [employer] [facility] Differential cell count method Nom (Bld) AUTO DIFF % [facility] Eosinophils (Bld) [#/Vol] 0.10 10*3/uL 0.0 - 0.7 10*3/uL [facility] Eosinophils/100 WBC (Bld) 1.3 % 0.0 - 11.0 % [facility] Erythrocyte distribution width (RBC) [Ratio] 14.1 % 11.5 - 14.5 % [facility] Hematocrit (Bld) [Volume fraction] 36.2 % 36.0 - 48.0 % [facility] Hemoglobin (Bld) [Mass/Vol] 12.1 g/dL [facility] Lymphocytes (Bld) [#/Vol] 1.70 10*3/uL 1.2 - 3.4 10*3/uL [facility] Lymphocytes/100 WBC (Bld) 23.4 % 20.0 - 55.0 % [facility] MCH (RBC) [Entitic mass] 28.1 pg 26.0 - 35.0 PG [facility] MCHC (RBC) [Mass/Vol] 33.4 g/dL [facility] MCV (RBC) [Entitic vol] 84.1 fL [facility] Monocytes (Bld) [#/Vol] 0.5 10*3/uL 0.0 - 0.7 10*3/uL [facility] Monocytes/100 WBC (Bld) 6.4 % 0.0 - 10.0 % [facility] Neutrophils (Bld) [#/Vol] 5.0 10*3/uL 1.4 - 6.5 10*3/uL [facility] Neutrophils/100 WBC (Bld) 68.3 % 37.0 - 75.0 % [facility] Platelet mean volume (Bld) [Entitic vol] 8.9 fL [facility] Platelets (Bld) [#/Vol] 295 10*3/uL 130.0 - 400.0 10*3/uL [facility] RBC (Bld) [#/Vol] 4.31 10*6/uL 4.0 - 5.4 10*6/u L [facility] WBC (Bld) [#/Vol] 7.3 10*3/uL 3.6 - 11.0 10*3/u L [facility] COMPREHENSIVE METABOLIC PANE LOrdered By: Juanito Laird on 07-02-2020 Albumin [Mass/Vol] 4.1 G/dl 3.5 - 5.0 G/dl [facility] Albumin/Globulin [Mass ratio] 1.3 {ratio} [facility] ALP [Catalytic activity/Vol] 52 U/L [facility] ALT [Catalytic activity/Vol] 16 U/L [facility] AST [Catalytic activity/Vol] 29 U/L [facility] Bilirubin [Mass/Vol] 0.5 mg/dL [facility] Calcium [Mass/Vol] 9.2 mg/dL [facility] Chloride [Moles/Vol] 102 mmol/L [facility] CO2 [Moles/Vol] 22 mmol/L [facility] Creatinine [Mass/Vol] 0.59 mg/dL [facility] GFR COMMENT Average GFR for 30-39 years old = 109. [facility] Comment on above: Chronic Kidney disea se, GFR = <60. Kidney failure, GFR = <15. The GFR estimate is not adjusted for extreme body surface area or acute process, nor has it been validated for women or ethnic groups other than and . GFR/1.73 sq M.predicted among blacks MDRD (S/P/Bld) [Vol rate/Area] mL/min/{1.73_m2} ml/min/1.73sq.m [facility] GFR/1.73 sq M.predicted among non-blacks MDRD (S/P/Bld) [Vol rate/Area] mL/min/{1.73_m2} ml/min/1.73sq.m [facility] Glucose post fast [Mass/Vol] 84 mg/dL [facility] Comment on above: NORMAL <100 mg/dL PREDIABETES 101-126 mg/dL DIABETES 126 mg/dL or higher Interpretation and review of laboratory results Abnormal [facility] Potassium [Moles/Vol] 4.1 mmol/L [facility] Protein [Mass/Vol] 7.3 g/dL [facility] Sodium [Moles/Vol] 134 mmol/L Low [facility] Urea nitrogen [Mass/Vol] 15 mg/dL [facility] CT ABDOMEN/PELVIS WITHOUT CO NTRASTOrdered By: Juanito Laird on 07-02-2020 IMPRESSION: CT abdomen and CT pelvis studies demonstrate findings compatible with hepatic cysts as described, similar to prior study. Finding is compatible with complex right adnexal cyst as noted. Correlate for mild gastroenteritis. [employer] EXAMINATION: CT ABDOMEN/PELVIS WITHOUT CONTRAST HISTORY: Abdominal [...] bowel content. Bony structures are grossly intact. [employer]Contact User, Interfaces - 07/02/2020 2:22 PM EDT [...] cyst as noted. Correlate for mild gastroenteritis. [facility] HCG ( test) Ql (U)O rdered By: Vaughn Ceja on 07-02-2020 [facility] HCG QUALITATIVE, URINEOrdere d By: Vaughn Ceja on 07-02-2020 HCG ( test) Ql (U) Negative NEGATIVE [facility] LACTATE, BLOODOrdered By: Catherine Laird on 07-02-2020 Lactate [Moles/Vol] 1.0 mmol/L [facility] LIPASEOrdered By: Juanito rosen on 07-02-2020 Lipase [Catalytic activity/Vol] 32 U/L 23 - 300 U/L [facility] No Panel InformationOrdered By: Juanito Laird on 07-02-2020 [facility] PROTIME-INROrdered By: Gautam Laird on 07-02-2020 INR Coag (PPP) [Relative time] 0.95 {INR} [facility] Comment on above: 2.0-3.0 THERAPEUTIC RANGE 2.5-3.5 MECHANICAL VALVE RANGE PT Coag (PPP) [Time] 12.9 s [facility] TYPE AND SCREEN - POSSIBLE T RANSFUSIONOrdered By: Juanito Laird on 07-02-2020 ABO and Rh group Nom (Bld ) Positive [facility] ARM BAND NUMBER [id number] [facility] Blood group antibody screen Ql Negative [facility] EXPIRATION DATE 07/05/2020,2359 [facility] URINALYSIS, MACROOrdered By: Vaughn Ceja on 07-02-2020 Bilirubin Ql (U) Negative NEGATIVE [facility] Clarity (U) SLIGHTLY CLOUDY Abnormal CLEAR [facility] Color (U) PINK Abnormal YELLOW [facility] Glucose Test strip (U) [Mass/Vol] Negative NEGATIVE mg/dl [facility] Hemoglobin Ql (U) LARGE Abnormal NEGATIVE [facility] Interpretation and review of laboratory results Abnormal [facility] Ketones (U) [Mass/Vol] Negative NEGATIVE mg/dl [facility] Leukocyte esterase Test strip Ql (U) TRACE Abnormal NEGATIVE [facility] Nitrite Ql (U) Negative NEGATIVE [facility] pH (U) 5.5 [pH] [facility] Protein Ql (U) 100 mg/dl Abnormal NEGATIVE [facility] Specific gravity (U) [Rel density] <1.005 Low [facility] Urobilinogen (U) [Mass/Vol] 0.2 mg/dL [facility] URINE MICROSCOPICOrdered By: Vaughn Ceja on 07-02-2020 Bacteria LM.HPF (Urine sed) [#/Area] TRACE Abnormal NEGATIVE [facility] Casts LM.LPF (Urine sed) [#/Area] NONE NONE /LPF [facility] Crystals LM Nom (Urine sed) NONE NONE [facility] Epithelial cells LM Ql (Urine sed) 10 TO 20 /HPF [facility] Interpretation and review of laboratory results Abnormal [facility] Mucus Ql (Urine sed) Negative NEGATIVE [facility] RBC LM.HPF (Urine sed) [#/Area] TOO NUMEROUS TO COUNT Abnormal NEGATIVE /HPF [facility] Urine sediment comments LM John (Urine sed) POSSIBLY CONTAMINATED SPECIMEN, CULTURE MUST BE ORDERED SEPARATELY IF DEEMED NECESSARY. [facility] WBC LM.HPF (Urine sed) [#/Area] 1 TO 5 NEGATIVE /HPF [facility] US PELVIC WITH TRANSVAGINAL WITH DOPPLEROrdered By: Juanito Laird on 07-02-2020 IMPRESSION: 5.5 cm septated right ovarian cyst No evidence of right ovarian torsion Nonvisualization of the left ovary 4.1 cm myometrial masses, leiomyoma suspected [facility] EXAM: US PELVIC WITH TRANSVAGINAL WITH [...] to patient body habitus and bowel gas [facility] User, Interfaces - 07/02/2020 4:10 PM [...] ovary 4.1 cm myometrial masses, leiomyoma suspected [facility] CBC, EDIF, PLATELETon 2019 ABSOLUTE BASOPHIL COUNT 0.0 10*3/uL 0 - 0.2 10*3/uL [facility] Basophils/100 WBC (Bld) 0.6 % 0 - 2 % [facility] Differential cell count method Nom (Bld) AUTO DIFF % [facility] Eosinophils (Bld) [#/Vol] 0.10 10*3/uL 0 - 0.7 10*3/uL [facility] Eosinophils/100 WBC (Bld) 2.4 % 0 - 11 % [facility] Erythrocyte distribution width (RBC) [Ratio] 15.2 % High 11.5 - 14.5 % [facility] Hematocrit (Bld) [Volume fraction] 39.4 % 36 - 48 % [facility] Hemoglobin (Bld) [Mass/Vol] 12.7 g/dL [facility] Interpretation and review of laboratory results Abnormal [facility] Lymphocytes (Bld) [#/Vol] 1.50 10*3/uL 1.2 - 3.4 10*3/uL [facility] Lymphocytes/100 WBC (Bld) 25.8 % 20 - 55 % [facility] MCH (RBC) [Entitic mass] 28.3 pg 26 - 35 PG [facility] MCHC (RBC) [Mass/Vol] 32.3 g/dL [facility] MCV (RBC) [Entitic vol] 87.6 fL [facility] Monocytes (Bld) [#/Vol] 0.3 10*3/uL 0 - 0.7 10*3/uL [facility] Monocytes/100 WBC (Bld) 5.6 % 0 - 10 % [facility] Neutrophils (Bld) [#/Vol] 3.7 10*3/uL 1.4 - 6.5 10*3/uL [facility] Neutrophils/100 WBC (Bld) 65.6 % 37 - 75 % [facility] Platelet mean volume (Bld) [Entitic vol] 9.2 fL [facility] Platelets (Bld) [#/Vol] 277 10*3/uL 130 - 400 10*3/uL [facility] RBC (Bld) [#/Vol] 4.50 10*6/uL 4 - 5.4 10*6/uL [facility] WBC (Bld) [#/Vol] 5.7 10*3/uL 3.6 - 11 10*3/uL [facility] CHEM 7 (LYTES,BUN,CREA,GLUC) on 01-30-2020 Chloride [Moles/Vol] 106 mmol/L [facility] CO2 [Moles/Vol] 20 mmol/L Low [facility] Creatinine [Mass/Vol] 0.67 mg/dL [facility] GFR/1.73 sq M predicted among blacks MDRD (S/P/Bld) [Vol rate/Area] mL/min/{1.73_m2} ml/min/1.73sq.m [facility] GFR/1.73 sq M predicted among non-blacks MDRD (S/P/Bld) [Vol rate/Area] mL/min/{1.73_m2} ml/min/1.73sq.m [facility] GFR/1.73 sq M predicted among non-blacks MDRD (S/P/Bld) [Vol rate/Area] Average GFR for 30-39 years old = 109. [facility] Comment on above: Chronic Kidney disea se, GFR = <60. Kidney failure, GFR = <15. The GFR estimate is not adjusted for extreme body surface area or acute process, nor has it been validated for women or ethnic groups other than and . Glucose post fast [Mass/Vol] 78 mg/dL [facility] Comment on above: NORMAL <100 mg/dL PREDIABETES 101-126 mg/dL DIABETES 126 mg/dL or higher Interpretation and review of laboratory results Abnormal [facility] Potassium [Moles/Vol] 3.8 mmol/L [facility] Sodium [Moles/Vol] 138 mmol/L [facility] Urea nitrogen [Mass/Vol] 8 mg/dL [facility] CT ABDOMEN/PELVIS WITH CONTR Daljit 01-30-2020 [...] unchanged. 4. [facility] CT ABDOMEN/PELVIS WITH CONTRAST HISTORY: [...] osseous lesions. No compression fracture is identified. [facility] IMPRESSION: 1. Scattered fluid throughout nondilated small bowel may correlate with enteritis or mild ileus pattern. No bowel obstruction. 2. Left ovarian cyst measures 4.7 cm. Pelvic ultrasound could be considered, if clinical symptoms warrant. 3. Hepatic cysts, unchanged. 4. Prior cholecystectomy and appendectomy. 2 [employer] HCG QUALITATIVE, URINEon HCG ( test) Ql (U) Negative NEGATIVE [facility] HEPATIC FUNCTION PANELon Albumin [Mass/Vol] 4.6 g/dL [facility] ALP [Catalytic activity/Vol] 52 U/L [facility] ALT [Catalytic activity/Vol] 18 U/L [facility] AST [Catalytic activity/Vol] 31 U/L [facility] Bilirubin [Mass/Vol] 0.5 mg/dL [facility] Bilirubin.direct [Mass/Vol] 0.0 mg/dL [facility] Protein [Mass/Vol] 7.7 g/dL [facility] LIPASEon 01-30-2020 Lipase [Catalytic activity/Vol] 33 U/L 23 - 300 U/L [facility] URINALYSIS, MACROon 01-30-20 20 Bilirubin Ql (U) Negative NEGATIVE [facility] Clarity (U) CLEAR CLEAR [facility] Color (U) YELLOW YELLOW [facility] Glucose Test strip (U) [Mass/Vol] Negative NEGATIVE mg/dl [facility] Hemoglobin Ql (U) Negative NEGATIVE [facility] Interpretation and review of laboratory results Abnormal [facility] Ketones (U) [Mass/Vol] Negative NEGATIVE mg/dl [facility] Leukocyte esterase Test strip Ql (U) Negative NEGATIVE [facility] Nitrite Ql (U) Negative NEGATIVE [facility] pH (U) 7.5 [pH] High [facility] Protein Ql (U) Negative NEGATIVE mg/dl [facility] Specific gravity (U) [Rel density] 1.015 [facility] Urobilinogen (U) [Mass/Vol] 0.2 [facility] Vital Signs Date Time Vital Sign Value Performing Clinician Facility 10-06-2023 15:36-0400 Body height 166.6 cm Pac 4 Work Phone: [facility] 10-06-2023 15:36-0400 Body mass index (BMI) [Ratio] 29.61 kg/m2 Pac 4 Work Phone: [facility] 10-06-2023 15:36-0400 Body temperature 96.69 [degF] Pac 4 Work Phone: [facility] 10-06-2023 15:36-0400 Body weight 82.2 kg Pac 4 Work Phone: [facility] 10-06-2023 15:36-0400 Diastolic blood pressure 84 mm[Hg] Pac 4 Work Phone: [facility] 10-06-2023 15:36-0400 Heart rate 77 /min Pac 4 Work Phone: [facility] 10-06-2023 15:36-0400 Respiratory rate 17 /min Pac 4 Work Phone: [facility] 10-06-2023 15:36-0400 SaO2% (BldA) [Mass fraction] 99 % Pac 4 Work Phone: [facility] 10-06-2023 15:36-0400 Systolic blood pressure 125 mm[Hg] Pac 4 Work Phone: [facility] 09-08-2023 11:15-0400 Body height 167.6 cm Kasie Avalos MD Work Phone: [facility] 09-08-2023 11:15-0400 Body mass index (BMI) [Ratio] 28.34 kg/m2 Kasie Avalos MD Work Phone: [facility] 09-08-2023 11:15-0400 Body temperature 97.3 [degF] Kasie Avalos MD Work Phone: [facility] 09-08-2023 11:15-0400 Body weight 79.65 kg Kasie Avalos MD Work Phone: [facility] 09-08-2023 11:15-0400 Diastolic blood pressure 82 mm[Hg] Kasie Avalos MD Work Phone: [facility] 09-08-2023 11:15-0400 Heart rate 74 /min Kasie Avalos MD Work Phone: [facility] 09-08-2023 11:15-0400 SaO2% (BldA) [Mass fraction] 100 % Kasie Avalos MD Work Phone: [facility] 09-08-2023 11:15-0400 Systolic blood pressure 118 mm[Hg] Kasie Avalos MD Work Phone: [facility] 08-26-2023 16:30-0400 Diastolic blood pressure 53 mm[Hg] Britt Bradshaw MD Work Phone: [facility] 08-26-2023 16:30-0400 Heart rate 62 /min Britt Bradshaw MD Work Phone: [facility] 08-26-2023 16:30-0400 Respiratory rate 16 /min Britt Bradshaw MD Work Phone: [facility] 08-26-2023 16:30-0400 SaO2% (BldA) [Mass fraction] 98 % Britt Bradshaw MD Work Phone: [facility] 08-26-2023 16:30-0400 Systolic blood pressure 104 mm[Hg] Britt Bradshaw MD Work Phone: [facility] 08-26-2023 15:19-0400 Body height 167.6 cm Britt Bradshaw MD Work Phone: [facility] 08-26-2023 15:19-0400 Body mass index (BMI) [Ratio] 28.25 kg/m2 Britt Bradshaw MD Work Phone: [facility] 08-26-2023 15:19-0400 Body temperature 98.1 [degF] Britt Bradshaw MD Work Phone: [facility] 08-26-2023 15:19-0400 Body weight 79.38 kg Britt Bradshaw MD Work Phone: [facility] 08-21-2023 12:56-0400 Diastolic blood pressure 55 mm[Hg] BLEACH MACHINE OPERATOR-C Jaquan Cristhian Work Phone: [facility] 08-21-2023 12:56-0400 Heart rate 72 /min BLEACH MACHINE OPERATOR-C Jaquan Cristhian Work Phone: [facility] 08-21-2023 12:56-0400 Respiratory rate 18 /min BLEACH MACHINE OPERATOR-C Jaquan Cristhian Work Phone: [facility] 08-21-2023 12:56-0400 SaO2% (BldA) [Mass fraction] 98 % BLEACH MACHINE OPERATOR-C Jaquan Cristhian Work Phone: [facility] 08-21-2023 12:56-0400 Systolic blood pressure 103 mm[Hg] BLEACH MACHINE OPERATOR-C Jaquan Cristhian Work Phone: [facility] 08-21-2023 08:54-0400 Body height 168.91 cm BLEACH MACHINE OPERATOR-C Jaquan Cristhian Work Phone: [facility] 08-21-2023 08:54-0400 Body weight 79 kg BLEACH MACHINE OPERATOR-C Jaquan Cristhian Work Phone: [facility] 08-21-2023 08:48-0400 Body temperature 97.9 [degF] BLEACH MACHINE OPERATOR-C Jaquan Cristhian Work Phone: [facility] 08-14-2023 18:07-0400 Diastolic blood pressure 74 mm[Hg] BLEACH MACHINE OPERATOR-C Jaquan Cristhian Work Phone: [facility] 08-14-2023 18:07-0400 Heart rate 66 /min BLEACH MACHINE OPERATOR-C Jaquan Cristhian Work Phone: [facility] 08-14-2023 18:07-0400 Respiratory rate 18 /min BLEACH MACHINE OPERATOR-C Jaquan Cristhian Work Phone: [facility] 08-14-2023 18:07-0400 SaO2% (BldA) [Mass fraction] 99 % BLEACH MACHINE OPERATOR-C Jaquan Cristhian Work Phone: [facility] 08-14-2023 18:07-0400 Systolic blood pressure 110 mm[Hg] BLEACH MACHINE OPERATOR-C Jaquan Cristhian Work Phone: [facility] 08-14-2023 16:17-0400 Body height 167.64 cm BLEACH MACHINE OPERATOR-C Jaquan Cristhian Work Phone: [facility] 08-14-2023 16:17-0400 Body temperature 97.5 [degF] BLEACH MACHINE OPERATOR-C Jaquan Cristhian Work Phone: [facility] 08-14-2023 16:17-0400 Body weight 78.92 kg BLEACH MACHINE OPERATOR-C Jaquan Cristhian Work Phone: [facility] 08-09-2023 13:51-0400 Diastolic blood pressure 79 mm[Hg] Vic Ramos MD Work Phone: [facility] 08-09-2023 13:51-0400 Heart rate 76 /min Vic Ramos MD Work Phone: [facility] 08-09-2023 13:51-0400 Systolic blood pressure 113 mm[Hg] Vic Ramos MD Work Phone: [facility] 08-04-2023 08:23-0400 Body mass index (BMI) [Ratio] 29.21 kg/m2 Boogie Murguia MD Work Phone: [facility] 08-04-2023 08:23-0400 Body weight 82.1 kg Boogie Murguia MD Work Phone: [facility] 07-31-2023 13:21-0400 Diastolic blood pressure 55 mm[Hg] BLEACH MACHINE OPERATOR-C Jaquan Cristhian Work Phone: [facility] 07-31-2023 13:21-0400 Heart rate 64 /min BLEACH MACHINE OPERATOR-C Jaquan Cristhian Work Phone: [facility] 07-31-2023 13:21-0400 Respiratory rate 18 /min BLEACH MACHINE OPERATOR-C Jaquan Cristhian Work Phone: [facility] 07-31-2023 13:21-0400 SaO2% (BldA) [Mass fraction] 97 % BLEACH MACHINE OPERATOR-C Jaquan Cristhian Work Phone: [facility] 07-31-2023 13:21-0400 Systolic blood pressure 104 mm[Hg] BLEACH MACHINE OPERATOR-C Jaquan Cristhian Work Phone: [facility] 07-31-2023 10:21-0400 Body height 168.91 cm BLEACH MACHINE OPERATOR-C Jaquan Cristhian Work Phone: [facility] 07-31-2023 10:21-0400 Body temperature 98.2 [degF] BLEACH MACHINE OPERATOR-C Jaquan Cristhian Work Phone: [facility] 07-31-2023 10:21-0400 Body weight 79 kg BLEACH MACHINE OPERATOR-C Jaquan Cristhian Work Phone: [facility] 07-17-2023 21:45-0400 Body temperature 98.2 [degF] BLEACH MACHINE OPERATOR-C Jaquan Cristhian Work Phone: [facility] 07-17-2023 21:45-0400 Diastolic blood pressure 73 mm[Hg] BLEACH MACHINE OPERATOR-C Jaquan Cristhian Work Phone: [facility] 07-17-2023 21:45-0400 Heart rate 66 /min BLEACH MACHINE OPERATOR-C Jaquan Cristhian Work Phone: [facility] 07-17-2023 21:45-0400 Respiratory rate 16 /min BLEACH MACHINE OPERATOR-C Jaquan Cristhian Work Phone: [facility] 07-17-2023 21:45-0400 SaO2% (BldA) [Mass fraction] 97 % BLEACH MACHINE OPERATOR-C Jaquan Cristhian Work Phone: [facility] 07-17-2023 21:45-0400 Systolic blood pressure 108 mm[Hg] BLEACH MACHINE OPERATOR-C Jaquan Cristhian Work Phone: [facility] 07-17-2023 12:39-0400 Body height 167.64 cm BLEACH MACHINE OPERATOR-C Jaquan Cristhian Work Phone: [facility] 07-17-2023 08:45-0400 Body weight 79.5 kg BLEACH MACHINE OPERATOR-C Jaquan Cristhian Work Phone: [facility] 07-17-2023 07:30-0400 Diastolic blood pressure 53 mm[Hg] BLEACH MACHINE OPERATOR-C Jaquan Cristhian Work Phone: [facility] 07-17-2023 07:30-0400 Heart rate 62 /min BLEACH MACHINE OPERATOR-C Jaquan Cristhian Work Phone: [facility] 07-17-2023 07:30-0400 Respiratory rate 16 /min BLEACH MACHINE OPERATOR-C Jaquan Cristhian Work Phone: [facility] 07-17-2023 07:30-0400 SaO2% (BldA) [Mass fraction] 96 % BLEACH MACHINE OPERATOR-C Jaquan Cristhian Work Phone: [facility] 07-17-2023 07:30-0400 Systolic blood pressure 106 mm[Hg] BLEACH MACHINE OPERATOR-C Jaquan Cristhian Work Phone: [facility] 07-16-2023 14:44-0400 Body height 167.64 cm BLEACH MACHINE OPERATOR-C Jaquan Cristhian Work Phone: [facility] 07-16-2023 14:44-0400 Body temperature 97.6 [degF] BLEACH MACHINE OPERATOR-C Jaquan Cristhian Work Phone: [facility] 07-16-2023 14:44-0400 Body weight 79.95 kg BLEACH MACHINE OPERATOR-C Jaquan Cristhian Work Phone: [facility] 07-03-2023 07:00-0400 Body temperature 98.6 [degF] David Wodrich DO Work Phone: [facility] 07-03-2023 07:00-0400 Diastolic blood pressure 57 mm[Hg] David Wodrich DO Work Phone: [facility] 07-03-2023 07:00-0400 Heart rate 105 /min David Wodrich DO Work Phone: [facility] 07-03-2023 07:00-0400 Respiratory rate 18 /min David Wodrich DO Work Phone: [facility] 07-03-2023 07:00-0400 SaO2% (BldA) [Mass fraction] 100 % David Wodrich DO Work Phone: [facility] 07-03-2023 07:00-0400 Systolic blood pressure 99 mm[Hg] David Wodrich DO Work Phone: [facility] 06-29-2023 18:16-0400 Body height 167.6 cm David Woander DO Work Phone: [facility] 06-29-2023 18:16-0400 Body mass index (BMI) [Ratio] 27.12 kg/m2 David Wodrich DO Work Phone: [facility] 06-29-2023 18:16-0400 Body weight 76.2 kg David Wodrcatherine DO Work Phone: [facility] 06-22-2023 11:14-0400 Body height 167.6 cm Sherry Magaña MD Work Phone: [facility] 06-22-2023 11:14-0400 Body mass index (BMI) [Ratio] 27.12 kg/m2 Sherry Magaña MD Work Phone: [facility] 06-22-2023 11:14-0400 Body weight 76.2 kg Sherry Magaña MD Work Phone: [facility] 06-18-2023 09:35-0400 Body height 167.6 cm Breanna Stern APRN.FIRE CONTROL ASSISTANT Work Phone: [facility] 06-18-2023 09:35-0400 Body mass index (BMI) [Ratio] 27.29 kg/m2 Breanna Stern APRN.FIRE CONTROL ASSISTANT Work Phone: [facility] 06-18-2023 09:35-0400 Body temperature 98.01 [degF] Breanna Stern APRN.FIRE CONTROL ASSISTANT Work Phone: [facility] 06-18-2023 09:35-0400 Body weight 76.66 kg Breanna Stern APRN.FIRE CONTROL ASSISTANT Work Phone: [facility] 06-18-2023 09:35-0400 Diastolic blood pressure 82 mm[Hg] Breanna Stern APRN.FIRE CONTROL ASSISTANT Work Phone: [facility] 06-18-2023 09:35-0400 Heart rate 78 /min Breanna Stern APRN.FIRE CONTROL ASSISTANT Work Phone: [facility] 06-18-2023 09:35-0400 SaO2% (BldA) [Mass fraction] 100 % Breanna Stern PERIOPERATIVE ASSISTANT.FIRE CONTROL ASSISTANT Work Phone: [facility] 06-18-2023 09:35-0400 Systolic blood pressure 142 mm[Hg] Breanna Stern PERIOPERATIVE ASSISTANT.FIRE CONTROL ASSISTANT Work Phone: [facility] 05-31-2023 00:53-0400 Diastolic blood pressure 82 mm[Hg] BLEACH MACHINE OPERATOR-C Jaquan Cristhian Work Phone: [facility] 05-31-2023 00:53-0400 Heart rate 51 /min BLEACH MACHINE OPERATOR-C Jaquan Cristhian Work Phone: [facility] 05-31-2023 00:53-0400 Respiratory rate 18 /min BLEACH MACHINE OPERATOR-C Jaquan Cristhian Work Phone: [facility] 05-31-2023 00:53-0400 SaO2% (BldA) [Mass fraction] 91 % BLEACH MACHINE OPERATOR-C Jaquan Cristhian Work Phone: [facility] 05-31-2023 00:53-0400 Systolic blood pressure 142 mm[Hg] BLEACH MACHINE OPERATOR-C Jaquan Cristhian Work Phone: [facility] 05-30-2023 15:25-0400 Body height 167.64 cm BLEACH MACHINE OPERATOR-C Jaquan Cristhian Work Phone: [facility] 05-30-2023 15:25-0400 Body temperature 97.7 [degF] BLEACH MACHINE OPERATOR-C Jaquan Cristhian Work Phone: [facility] 05-30-2023 15:25-0400 Body weight 76.65 kg BLEACH MACHINE OPERATOR-C Jaquan Cristhian Work Phone: [facility] 05-17-2023 16:03-0400 Diastolic blood pressure 82 mm[Hg] [facility] 05-17-2023 16:03-0400 Heart rate 72 /min [facility] 05-17-2023 16:03-0400 Mean blood pressure 95 mm[Hg] [facility] 05-17-2023 16:03-0400 Respiratory rate 17 /min [facility] 05-17-2023 16:03-0400 SaO2% (BldA) [Mass fraction] 100 % [facility] 05-17-2023 16:03-0400 Systolic blood pressure 120 mm[Hg] [facility] 05-17-2023 15:30-0400 Diastolic blood pressure 86 mm[Hg] [facility] 05-17-2023 15:30-0400 Heart rate 71 /min [facility] 05-17-2023 15:30-0400 Mean blood pressure 103 mm[Hg] [facility] 05-17-2023 15:30-0400 Respiratory rate 16 /min [facility] 05-17-2023 15:30-0400 SaO2% (BldA) [Mass fraction] 100 % [facility] 05-17-2023 15:30-0400 Systolic blood pressure 136 mm[Hg] [facility] 05-17-2023 15:00-0400 Diastolic blood pressure 78 mm[Hg] [facility] 05-17-2023 15:00-0400 Heart rate 70 /min [facility] 05-17-2023 15:00-0400 Mean blood pressure 97 mm[Hg] [facility] 05-17-2023 15:00-0400 Respiratory rate 15 /min [facility] 05-17-2023 14:16-0400 Body temperature 97.7 [degF] [facility] 05-17-2023 14:16-0400 Heart rate 74 /min [facility] 05-14-2023 13:06-0400 Hourly Rounding Moncho Paster [facility] 05-14-2023 13:06-0400 Promise to Return Moncho Paster [facility] 05-14-2023 12:06-0400 Hourly Rounding Moncho Paster [facility] 05-14-2023 12:06-0400 Promise to Return Moncho Paster [facility] 05-14-2023 11:32-0400 Hourly Rounding Moncho Paster [facility] 05-14-2023 11:32-0400 Promise to Return Moncho Paster [facility] 05-14-2023 10:08-0400 Heart rate 57 /min Moncho Paster [facility] 05-14-2023 10:08-0400 SaO2% (BldA) [Mass fraction] 100 % Moncho Paster [facility] 05-14-2023 10:08-0400 Diastolic blood pressure 80 mm[Hg] Moncho Paster [facility] 05-14-2023 10:08-0400 Mean blood pressure 93 mm[Hg] Moncho Paster [facility] 05-14-2023 10:08-0400 Systolic blood pressure 119 mm[Hg] Moncho Paster [facility] 05-14-2023 10:08-0400 Body temperature 97.34 [degF] Moncho Paster [facility] 05-14-2023 07:32-0400 Heart rate 57 /min Moncho Paster [facility] 05-14-2023 07:32-0400 SaO2% (BldA) [Mass fraction] 100 % Moncho Paster [facility] 05-14-2023 07:32-0400 Diastolic blood pressure 66 mm[Hg] Moncho Paster [facility] 05-14-2023 07:32-0400 Mean blood pressure 77 mm[Hg] Moncho Paster [facility] 05-14-2023 07:32-0400 Systolic blood pressure 100 mm[Hg] Moncho Paster [facility] 05-14-2023 07:31-0400 Body temperature 97.34 [degF] Moncho Paster [facility] 05-14-2023 05:00-0400 Blood Pressure Location Moncho Paster [facility] 05-14-2023 05:00-0400 Diastolic blood pressure 77 mm[Hg] Moncho Paster [facility] 05-14-2023 05:00-0400 Mean blood pressure 90 mm[Hg] Moncho Paster [facility] 05-14-2023 05:00-0400 Systolic blood pressure 116 mm[Hg] Moncho Paster [facility] 05-13-2023 23:38-0400 Heart rate 53 /min Moncho Paster [facility] 05-13-2023 23:38-0400 SaO2% (BldA) [Mass fraction] 100 % Moncho Paster [facility] 05-13-2023 23:38-0400 Respiratory rate 16 /min Moncho Paster [facility] 05-13-2023 23:37-0400 Mean blood pressure 92 mm[Hg] Moncho Paster [facility] 05-13-2023 23:00-0400 Blood Pressure Location Moncho Paster [facility] 05-13-2023 23:00-0400 Body temperature 97.34 [degF] Moncho Paster [facility] 05-13-2023 19:33-0400 Body temperature 97.52 [degF] Moncho Paster [facility] 05-13-2023 16:00-0400 Body temperature 98.06 [degF] Moncho Paster [facility] 05-13-2023 11:00-0400 Body temperature 98.24 [degF] Moncho Paster [facility] 05-12-2023 16:17-0400 Blood Pressure Location Moncho Paster [facility] 05-12-2023 16:00-0400 Respiratory rate 20 /min Moncho Paster [facility] 05-12-2023 15:55-0400 Mean blood pressure 86 mm[Hg] Moncho Paster [facility] 05-12-2023 15:55-0400 Respiratory rate 14 /min Moncho Paster [facility] 05-12-2023 15:50-0400 Mean blood pressure 87 mm[Hg] Moncho Paster [facility] 05-12-2023 15:50-0400 Respiratory rate 18 /min Moncho Paster [facility] 05-12-2023 15:36-0400 Body temperature 97.88 [degF] Moncho Paster [facility] 05-12-2023 15:30-0400 Respiratory rate 12 /min Moncho Paster [facility] 05-12-2023 15:25-0400 Respiratory rate 12 /min Moncho Paster [facility] 05-12-2023 13:19-0400 Heart rate 61 /min Moncho Paster [facility] 05-12-2023 09:32-0400 Heart rate 77 /min Moncho Paster [facility] 05-11-2023 16:43-0400 Diastolic blood pressure 67 mm[Hg] Mateusz Jose [facility] 05-11-2023 16:43-0400 Heart rate 75 /min Mateusz Jose [facility] 05-11-2023 16:43-0400 Mean blood pressure 83 mm[Hg] Mateusz Jose [facility] 05-11-2023 16:43-0400 Respiratory rate 18 /min Mateusz Jose [facility] 05-11-2023 16:43-0400 SaO2% (BldA) [Mass fraction] 100 % Mateusz Jose [facility] 05-11-2023 16:43-0400 Systolic blood pressure 115 mm[Hg] Mateusz Jose [facility] 05-11-2023 15:00-0400 Diastolic blood pressure 79 mm[Hg] Mateusz Jose [facility] 05-11-2023 15:00-0400 Heart rate 65 /min Mateusz Jose [facility] 05-11-2023 15:00-0400 Mean blood pressure 92 mm[Hg] Mateusz Jose [facility] 05-11-2023 15:00-0400 Systolic blood pressure 118 mm[Hg] Mateusz Jose [facility] 05-11-2023 14:30-0400 Heart rate 69 /min Mateusz Jose [facility] 05-11-2023 14:30-0400 Respiratory rate 18 /min Mateusz Jose [facility] 05-11-2023 14:30-0400 SaO2% (BldA) [Mass fraction] 100 % Mateusz Jose [facility] 05-11-2023 12:00-0400 Body temperature 97.7 [degF] Mateusz Jose [facility] 05-11-2023 12:00-0400 Diastolic blood pressure 83 mm[Hg] Mateusz Jose [facility] 05-11-2023 12:00-0400 Heart rate 73 /min Mateusz Jose [facility] 05-11-2023 12:00-0400 Systolic blood pressure 147 mm[Hg] Mateusz Jose [facility] 05-09-2023 16:20-0400 Diastolic blood pressure 67 mm[Hg] Mateusz Jose [facility] 05-09-2023 16:20-0400 Heart rate 75 /min Mateusz Jose [facility] 05-09-2023 16:20-0400 Mean blood pressure 82 mm[Hg] Mateusz Jose [facility] 05-09-2023 16:20-0400 Respiratory rate 16 /min Mateusz Jose [facility] 05-09-2023 16:20-0400 SaO2% (BldA) [Mass fraction] 97 % Mateusz Jose [facility] 05-09-2023 16:20-0400 Systolic blood pressure 112 mm[Hg] Mateusz Jose [facility] 05-09-2023 15:40-0400 Diastolic blood pressure 69 mm[Hg] Mateusz Jose [facility] 05-09-2023 15:40-0400 Heart rate 69 /min Mateusz Jose [facility] 05-09-2023 15:40-0400 Mean blood pressure 84 mm[Hg] Mateusz Jose [facility] 05-09-2023 15:40-0400 Respiratory rate 18 /min Mateusz Jose [facility] 05-09-2023 15:40-0400 SaO2% (BldA) [Mass fraction] 100 % Mateusz Jose [facility] 05-09-2023 15:40-0400 Systolic blood pressure 113 mm[Hg] Mateusz Jose [facility] 05-09-2023 14:00-0400 Diastolic blood pressure 80 mm[Hg] Mateusz Jose [facility] 05-09-2023 14:00-0400 Heart rate 78 /min Mateusz Jose [facility] 05-09-2023 14:00-0400 Mean blood pressure 96 mm[Hg] Mateusz Jose [facility] 05-09-2023 14:00-0400 Respiratory rate 19 /min Mateusz Jose [facility] 05-09-2023 14:00-0400 Systolic blood pressure 129 mm[Hg] Mateusz Jose [facility] 05-09-2023 11:47-0400 Body temperature 97.7 [degF] Mateusz Jose [facility] 05-09-2023 11:47-0400 Heart rate 107 /min Mateusz Jose [facility] 05-06-2023 21:11-0400 Diastolic blood pressure 61 mm[Hg] Mateusz Jose [facility] 05-06-2023 21:11-0400 Heart rate 55 /min Mateusz Jose [facility] 05-06-2023 21:11-0400 Mean blood pressure 74 mm[Hg] Mateusz Jose [facility] 05-06-2023 21:11-0400 Respiratory rate 16 /min Mateusz Jose [facility] 05-06-2023 21:11-0400 SaO2% (BldA) [Mass fraction] 100 % Mateusz Jose [facility] 05-06-2023 21:11-0400 Systolic blood pressure 100 mm[Hg] Mateusz Jose [facility] 05-06-2023 20:20-0400 Diastolic blood pressure 73 mm[Hg] Mateusz Jose [facility] 05-06-2023 20:20-0400 Heart rate 53 /min Mateusz Jose [facility] 05-06-2023 20:20-0400 Mean blood pressure 89 mm[Hg] Mateusz Jose [facility] 05-06-2023 20:20-0400 Respiratory rate 14 /min Mateusz Jose [facility] 05-06-2023 20:20-0400 SaO2% (BldA) [Mass fraction] 100 % Mateusz Jose [facility] 05-06-2023 20:20-0400 Systolic blood pressure 122 mm[Hg] Mateusz Jose [facility] 05-06-2023 19:30-0400 Diastolic blood pressure 87 mm[Hg] Mateusz Jose [facility] 05-06-2023 19:30-0400 Heart rate 72 /min Mateusz Garcia [facility] 05-06-2023 19:30-0400 Mean blood pressure 105 mm[Hg] Mateusz Garcia [facility] 05-06-2023 19:30-0400 Respiratory rate 16 /min Mateusz Garcia [facility] 05-06-2023 19:30-0400 SaO2% (BldA) [Mass fraction] 100 % Mateusz Garcia [facility] 05-06-2023 19:30-0400 Systolic blood pressure 141 mm[Hg] Mateusz Jose [facility] 05-06-2023 15:45-0400 Body temperature 98.78 [degF] Mateuszdeo Garcia [facility] 05-06-2023 15:45-0400 Heart rate 66 /min Mateusz Garcia [facility] 05-06-2023 15:45-0400 Respiratory rate 18 /min Mateusz Garcia [facility] 04-28-2023 09:49-0400 Body height 167.6 cm Kasie Avalos MD Work Phone: [facility] 04-28-2023 09:49-0400 Body temperature 96.6 [degF] Kasie Avalos MD Work Phone: [facility] 04-28-2023 09:49-0400 Body weight 79.38 kg Kasie Avalos MD Work Phone: [facility] 04-28-2023 09:49-0400 Diastolic blood pressure 75 mm[Hg] Kaise Avalos MD Work Phone: [facility] 04-28-2023 09:49-0400 Heart rate 80 /min Kasie Avalos MD Work Phone: [facility] 04-28-2023 09:49-0400 SaO2% (BldA) [Mass fraction] 100 % Kasie Avalos MD Work Phone: [facility] 04-28-2023 09:49-0400 Systolic blood pressure 106 mm[Hg] Kasie Avalos MD Work Phone: [facility] 04-06-2023 14:00-0500 Diastolic blood pressure 59 mm[Hg] BLEACH MACHINE OPERATOR-C Jaquan Cristhian Work Phone: [facility] 04-06-2023 14:00-0500 Heart rate 59 /min BLEACH MACHINE OPERATOR-C Jaquan Cristhian Work Phone: [facility] 04-06-2023 14:00-0500 Respiratory rate 16 /min BLEACH MACHINE OPERATOR-C Jaquan Cristhian Work Phone: [facility] 04-06-2023 14:00-0500 SaO2% (BldA) [Mass fraction] 98 % BLEACH MACHINE OPERATOR-C Jaquan Cristhian Work Phone: [facility] 04-06-2023 14:00-0500 Systolic blood pressure 113 mm[Hg] BLEACH MACHINE OPERATOR-C Jaquan Cristhian Work Phone: [facility] 04-06-2023 09:47-0500 Body height 167.64 cm BLEACH MACHINE OPERATOR-C Jaquan Cristhian Work Phone: [facility] 04-06-2023 09:47-0500 Body temperature 96.7 [degF] BLEACH MACHINE OPERATOR-C Jaquan Cristhian Work Phone: [facility] 04-06-2023 09:47-0500 Body weight 81.1 kg BLEACH MACHINE OPERATOR-C Jaquan Cristhian Work Phone: [facility] 04-02-2023 17:00-0500 Diastolic blood pressure 63 mm[Hg] [facility] Jose Ramon [facility] 04-02-2023 17:00-0500 Heart rate 75 /min [facility] 04-02-2023 17:00-0500 Mean blood pressure 80 mm[Hg] [facility] 04-02-2023 17:00-0500 SaO2% (BldA) [Mass fraction] 99 % [facility] 04-02-2023 17:00-0500 Systolic blood pressure 113 mm[Hg] [facility] 04-02-2023 16:00-0500 Diastolic blood pressure 71 mm[Hg] [facility] 04-02-2023 16:00-0500 Heart rate 71 /min [facility] 04-02-2023 16:00-0500 Mean blood pressure 88 mm[Hg] [facility] 04-02-2023 16:00-0500 Respiratory rate 14 /min [facility] 04-02-2023 16:00-0500 SaO2% (BldA) [Mass fraction] 100 % [facility] 04-02-2023 16:00-0500 Systolic blood pressure 123 mm[Hg] [facility] 04-02-2023 15:00-0500 Diastolic blood pressure 55 mm[Hg] [facility] 04-02-2023 15:00-0500 Heart rate 76 /min [facility] 04-02-2023 15:00-0500 Mean blood pressure 73 mm[Hg] [facility] 04-02-2023 15:00-0500 Respiratory rate 17 /min [facility] 04-02-2023 15:00-0500 Systolic blood pressure 109 mm[Hg] [facility] 04-02-2023 10:54-0500 Body temperature 98.6 [degF] [facility] 04-02-2023 10:54-0500 Heart rate 73 /min [facility] 04-02-2023 10:54-0500 Respiratory rate 16 /min Ashutosh Albright [facility] 03-20-2023 08:41-0500 Body temperature 97.5 [degF] Melisa Barker MD Work Phone: [facility] 03-20-2023 08:41-0500 Diastolic blood pressure 74 mm[Hg] Melisa Barker MD Work Phone: 8(708)[phone] [place] [address] 03-20-2023 08:41-0500 Heart rate 62 /min Melisa Barker MD Work Phone: 9(860)[phone] [place] [address] 03-20-2023 08:41-0500 Respiratory rate 18 /min Melisa Barker MD Work Phone: 1(139)[phone] [place] [address] 03-20-2023 08:41-0500 SaO2% (BldA) [Mass fraction] 98 % Melisa Barker MD Work Phone: 1(986)218-923405 [place] [address] 03-20-2023 08:41-0500 Systolic blood pressure 131 mm[Hg] Melisa Barker MD Work Phone: 2(508)737-628305 [place] [address] 03-16-2023 13:47-0500 Body height 167.6 cm Melisa Barker MD Work Phone: 7(691)[phone] [place] [address] 03-16-2023 13:47-0500 Body mass index (BMI) [Ratio] 32.99 kg/m2 Melisa Barker MD Work Phone: 4(906)[phone] [place] [address] 03-16-2023 13:47-0500 Body weight 92.7 kg Melisa Barker MD Work Phone: 7(297)[phone] [place] [address] 03-16-2023 12:00-0500 Diastolic blood pressure 70 mm[Hg] Earnest Jett [facility] 03-16-2023 12:00-0500 Heart rate 69 /min Earnest Jett [facility] 03-16-2023 12:00-0500 Mean blood pressure 84 mm[Hg] Earnest Johnie [facility] 03-16-2023 12:00-0500 Systolic blood pressure 113 mm[Hg] Earnest Blancoe [facility] 03-16-2023 11:30-0500 Diastolic blood pressure 86 mm[Hg] Earnest Blancoe [facility] 03-16-2023 11:30-0500 Heart rate 61 /min Earnest Blancoe [facility] 03-16-2023 11:30-0500 Mean blood pressure 102 mm[Hg] Earnest Blancoe [facility] 03-16-2023 11:30-0500 Respiratory rate 16 /min Earnest Blancoe [facility] 03-16-2023 11:30-0500 Systolic blood pressure 133 mm[Hg] Earnest Blancoe [facility] 03-16-2023 11:07-0500 Diastolic blood pressure 83 mm[Hg] Earnest Blancoe [facility] 03-16-2023 11:07-0500 Heart rate 63 /min Earnest Blancoe [facility] 03-16-2023 11:07-0500 Mean blood pressure 94 mm[Hg] Earnest Blancoe [facility] 03-16-2023 11:07-0500 SaO2% (BldA) [Mass fraction] 100 % Earnest Johnie [facility] 03-16-2023 11:07-0500 Systolic blood pressure 116 mm[Hg] Earnest Johnie [facility] 03-16-2023 10:21-0500 Body temperature 97.52 [degF] Earnest Johnie [facility] 03-16-2023 10:21-0500 Heart rate 70 /min Earnest Johnie [facility] 03-16-2023 10:21-0500 SaO2% (BldA) [Mass fraction] 100 % Earnest Johnie [facility] 03-15-2023 18:00-0500 Diastolic blood pressure 75 mm[Hg] Earnest Johnie [facility] 03-15-2023 18:00-0500 Heart rate 68 /min Earnest Johnie [facility] 03-15-2023 18:00-0500 Mean blood pressure 94 mm[Hg] Earnest Johnie [facility] 03-15-2023 18:00-0500 Respiratory rate 16 /min Earnest Johnie [facility] 03-15-2023 18:00-0500 SaO2% (BldA) [Mass fraction] 98 % Earnest Johnie [facility] 03-15-2023 18:00-0500 Systolic blood pressure 131 mm[Hg] Earnest Johnie [facility] 03-15-2023 17:19-0500 Diastolic blood pressure 66 mm[Hg] Earnets Johnie [facility] 03-15-2023 17:19-0500 Heart rate 56 /min Earnest Johnie [facility] 03-15-2023 17:19-0500 Mean blood pressure 79 mm[Hg] Earnest Johnie [facility] 03-15-2023 17:19-0500 Respiratory rate 18 /min Earnest Johnie [facility] 03-15-2023 17:19-0500 SaO2% (BldA) [Mass fraction] 95 % Earnest Johnie [facility] 03-15-2023 17:19-0500 Systolic blood pressure 104 mm[Hg] Earnest Jett [facility] 03-15-2023 16:23-0500 Diastolic blood pressure 72 mm[Hg] Earnest Jett [facility] 03-15-2023 16:23-0500 Heart rate 58 /min Earnest Jett [facility] 03-15-2023 16:23-0500 Mean blood pressure 90 mm[Hg] Earnest Jett [facility] 03-15-2023 16:23-0500 Respiratory rate 20 /min Earnest Jett [facility] 03-15-2023 16:23-0500 SaO2% (BldA) [Mass fraction] 99 % Earnest Jett [facility] 03-15-2023 16:23-0500 Systolic blood pressure 126 mm[Hg] Earnest Jett [facility] 03-15-2023 11:41-0500 Body temperature 97.88 [degF] Earnest Jett [facility] 03-15-2023 11:41-0500 Heart rate 71 /min Earnest Jett [facility] 03-15-2023 11:41-0500 Respiratory rate 26 /min Earnest Jett [facility] 03-10-2023 11:50-0500 Body temperature 97.9 [degF] Sherry Magaña MD Work Phone: [facility] 03-10-2023 11:50-0500 Diastolic blood pressure 85 mm[Hg] Sherry Magaña MD Work Phone: [facility] 03-10-2023 11:50-0500 Heart rate 73 /min Sherry Magaña MD Work Phone: [facility] 03-10-2023 11:50-0500 Respiratory rate 18 /min Sherry Magaña MD Work Phone: [facility] 03-10-2023 11:50-0500 SaO2% (BldA) [Mass fraction] 100 % Sherry Magaña MD Work Phone: [facility] 03-10-2023 11:50-0500 Systolic blood pressure 137 mm[Hg] Sherry Magaña MD Work Phone: [facility] 03-10-2023 08:32-0500 Body mass index (BMI) [Ratio] 29.69 kg/m2 Sherry Magaña MD Work Phone: [facility] 03-10-2023 08:32-0500 Body weight 83.4 kg Sherry Magaña MD Work Phone: [facility] 03-05-2023 06:42-0500 Body height 167.6 cm Sherry Magaña MD Work Phone: [facility] 02-13-2023 17:30-0500 Diastolic blood pressure 73 mm[Hg] BLEACH MACHINE OPERATOR-C Jaquan Cristhian Work Phone: [facility] 02-13-2023 17:30-0500 Heart rate 61 /min BLEACH MACHINE OPERATOR-C Jaquan Cristhian Work Phone: [facility] 02-13-2023 17:30-0500 Respiratory rate 18 /min BLEACH MACHINE OPERATOR-C Jaquan Cristhian Work Phone: [facility] 02-13-2023 17:30-0500 SaO2% (BldA) [Mass fraction] 100 % BLEACH MACHINE OPERATOR-C Jaquan Cristhian Work Phone: [facility] 02-13-2023 17:30-0500 Systolic blood pressure 121 mm[Hg] BLEACH MACHINE OPERATOR-C Jaquan Cristhian Work Phone: [facility] 02-13-2023 10:43-0500 Body height 167.64 cm BLEACH MACHINE OPERATOR-C Jaquan Cristhian Work Phone: [facility] 02-13-2023 10:43-0500 Body weight 83 kg BLEACH MACHINE OPERATOR-C Jaquan Cristhian Work Phone: [facility] 02-13-2023 10:42-0500 Body temperature 98.2 [degF] BLEACH MACHINE OPERATOR-C Jaquan Cristhian Work Phone: [facility] 12-31-2022 15:49-0500 Diastolic blood pressure 82 mm[Hg] Mateusz Jose [facility] 12-31-2022 15:49-0500 Heart rate 81 /min Mateusz Jose [facility] 12-31-2022 15:49-0500 Mean blood pressure 96 mm[Hg] Mateusz Jose [facility] 12-31-2022 15:49-0500 Respiratory rate 16 /min Mateusz Jose [facility] 12-31-2022 15:49-0500 SaO2% (BldA) [Mass fraction] 100 % Mateusz Jose [facility] 12-31-2022 15:49-0500 Systolic blood pressure 124 mm[Hg] Mateusz Jose [facility] 12-31-2022 15:40-0500 Hourly Rounding Mateusz Jose [facility] 12-31-2022 15:40-0500 Promise to Return Mateusz Jose [facility] 12-31-2022 15:00-0500 Diastolic blood pressure 78 mm[Hg] Mateusz Jose [facility] 12-31-2022 15:00-0500 Heart rate 76 /min Mateusz Jose [facility] 12-31-2022 15:00-0500 Mean blood pressure 91 mm[Hg] Mateusz Jose [facility] 12-31-2022 15:00-0500 Systolic blood pressure 117 mm[Hg] Mateusz Jose [facility] 12-31-2022 14:40-0500 Hourly Rounding Mateusz Jose [facility] 12-31-2022 14:40-0500 Promise to Return Mateusz Jose [facility] 12-31-2022 14:00-0500 Diastolic blood pressure 83 mm[Hg] Mateusz Jose [facility] 12-31-2022 14:00-0500 Heart rate 71 /min Mateusz Jose [facility] 12-31-2022 14:00-0500 Mean blood pressure 99 mm[Hg] Mateusz Jose [facility] 12-31-2022 14:00-0500 Systolic blood pressure 132 mm[Hg] Mateusz Jose [facility] 12-31-2022 13:40-0500 Hourly Rounding Mateusz Jose [facility] 12-31-2022 13:40-0500 Promise to Return Mateusz Jose [facility] 12-31-2022 12:42-0500 Body temperature 97.7 [degF] Mateusz Jose [facility] 12-31-2022 12:42-0500 Heart rate 88 /min Mateusz Jose [facility] 12-04-2022 09:54-0400 Body height 166 cm Agustin Zamorano MD Work Phone: [facility] 12-04-2022 09:54-0400 Body weight 83.78 kg Agustin Zamorano MD Work Phone: [facility] 12-04-2022 09:54-0400 Diastolic blood pressure 62 mm[Hg] Agustin Zamorano MD Work Phone: [facility] 12-04-2022 09:54-0400 Heart rate 91 /min Agustin Zamorano MD Work Phone: [facility] 12-04-2022 09:54-0400 Systolic blood pressure 112 mm[Hg] Agustin Zamorano MD Work Phone: [facility] 11-04-2022 12:00-0400 Body temperature 97.7 [degF] Rheu Jeanne Work Phone: [facility] 11-04-2022 12:00-0400 Diastolic blood pressure 65 mm[Hg] Rheu Jeanne Work Phone: [facility] 11-04-2022 12:00-0400 Heart rate 97 /min Rheu Jeanne Work Phone: [facility] 11-04-2022 09:19-0400 Body height 167.6 cm Deacon Kat MD Work Phone: [facility] 11-04-2022 09:19-0400 Body temperature 97.81 [degF] Deacon Kat MD Work Phone: [facility] 11-04-2022 09:19-0400 Body weight 83.46 kg Deacon Kat MD Work Phone: [facility] 11-04-2022 09:19-0400 Diastolic blood pressure 81 mm[Hg] Deacon Kat MD Work Phone: [facility] 11-04-2022 09:19-0400 Heart rate 82 /min Deacon Kat MD Work Phone: [facility] 11-04-2022 09:19-0400 Respiratory rate 18 /min Deacon Kat MD Work Phone: [facility] 11-04-2022 09:19-0400 SaO2% (BldA) [Mass fraction] 98 % Deacon Kat MD Work Phone: [facility] 11-04-2022 09:19-0400 Systolic blood pressure 125 mm[Hg] Deacon Kat MD Work Phone: [facility] 11-02-2022 13:52-0400 Diastolic blood pressure 82 mm[Hg] Dimitir Walker MD Work Phone: [facility] 11-02-2022 13:52-0400 Heart rate 82 /min Dimitri Walker MD Work Phone: [facility] 11-02-2022 13:52-0400 Respiratory rate 18 /min Dimitri Walker MD Work Phone: [facility] 11-02-2022 13:52-0400 Systolic blood pressure 128 mm[Hg] Dimitri Walker MD Work Phone: [facility] 11-02-2022 10:35-0400 Body mass index (BMI) [Ratio] 30.18 kg/m2 Dimitri Walker MD Work Phone: [facility] 11-02-2022 10:35-0400 Body weight 84.82 kg Dimitri Walker MD Work Phone: [facility] Comment on above: stand up scale triage room 11-02-2022 10:34-0400 Body temperature 98.29 [degF] [facility]ri [facility] 11-02-2022 10:34-0400 SaO2% (BldA) [Mass fraction] 98 % Dimitri Walker MD [facility] 10-31-2022 08:30-0400 Diastolic blood pressure 67 mm[Hg] Jalyn Suresh DO Work Phone: [facility] 10-31-2022 08:30-0400 Systolic blood pressure 120 mm[Hg] Jalyn Suresh DO Work Phone: [facility] 10-31-2022 06:32-0400 Body temperature 97.7 [degF] Jalyn Albaradobal DO Work Phone: [facility] 10-31-2022 06:32-0400 Heart rate 92 /min Jalyn Albaradobal DO Work Phone: [facility] 10-31-2022 06:32-0400 Respiratory rate 19 /min Jalyn Suresh DO Work Phone: [facility] 10-31-2022 06:32-0400 SaO2% (BldA) [Mass fraction] 100 % Jalyn Suresh DO Work Phone: [facility] [employer] 10-20-2022 11:52-0400 Diastolic blood pressure 86 mm[Hg] Earnest Jett [facility] 10-20-2022 11:52-0400 Heart rate 75 /min Earnest Jett [facility] 10-20-2022 11:52-0400 Respiratory rate 15 /min Earnest Jett [facility] 10-20-2022 11:52-0400 SaO2% (BldA) [Mass fraction] 99 % Earnest Jett [facility] 10-20-2022 11:52-0400 Systolic blood pressure 141 mm[Hg] Earnest Blancoe [facility] 10-20-2022 10:31-0400 Diastolic blood pressure 70 mm[Hg] Earnest Blancoe [facility] 10-20-2022 10:31-0400 Heart rate 70 /min Earnest Jett [facility] 10-20-2022 10:31-0400 Mean blood pressure 92 mm[Hg] Earnest Blancoe [facility] 10-20-2022 10:31-0400 Respiratory rate 16 /min Earnest Blancoe [facility] 10-20-2022 10:31-0400 SaO2% (BldA) [Mass fraction] 100 % Earnest Blancoe [facility] 10-20-2022 10:31-0400 Systolic blood pressure 137 mm[Hg] Earnest Johnie [facility] 10-20-2022 09:17-0400 Diastolic blood pressure 63 mm[Hg] Earnest Blancoe [facility] 10-20-2022 09:17-0400 Heart rate 77 /min Earnest Blancoe [facility] 10-20-2022 09:17-0400 Mean blood pressure 85 mm[Hg] Earnest Blancoe [facility] 10-20-2022 09:17-0400 Respiratory rate 18 /min Earnest Blancoe [facility] 10-20-2022 09:17-0400 SaO2% (BldA) [Mass fraction] 100 % Earnest Blancoe [facility] 10-20-2022 09:17-0400 Systolic blood pressure 128 mm[Hg] Earnest Blancoe [facility] 10-20-2022 08:17-0400 Body temperature 97.88 [degF] Earnest Johnie [facility] 10-19-2022 13:30-0400 Diastolic blood pressure 82 mm[Hg] Earnest Johnie [facility] 10-19-2022 13:30-0400 Heart rate 67 /min Earnest Blancoe [facility] 10-19-2022 13:30-0400 Mean blood pressure 100 mm[Hg] Earnest Johnie [facility] 10-19-2022 13:30-0400 Respiratory rate 20 /min Earnest Johnie [facility] 10-19-2022 13:30-0400 SaO2% (BldA) [Mass fraction] 100 % Earnest Johnie [facility] 10-19-2022 13:30-0400 Systolic blood pressure 136 mm[Hg] Earnest Johnie [facility] 10-19-2022 13:00-0400 Heart rate 61 /min Earnest Johnie [facility] 10-19-2022 13:00-0400 Respiratory rate 18 /min Earnest Johnie [facility] 10-19-2022 13:00-0400 Systolic blood pressure 127 mm[Hg] Earnest Johnie [facility] 10-19-2022 12:30-0400 Diastolic blood pressure 80 mm[Hg] Earnest Johnie [facility] 10-19-2022 12:30-0400 Heart rate 60 /min Earnest Johnie [facility] 10-19-2022 12:30-0400 Mean blood pressure 97 mm[Hg] Earnest Johnie [facility] 10-19-2022 12:30-0400 Respiratory rate 20 /min Earnest Johnie [facility] 10-19-2022 12:30-0400 SaO2% (BldA) [Mass fraction] 100 % Earnest Johnie [facility] 10-19-2022 12:30-0400 Systolic blood pressure 132 mm[Hg] Earnest Johnie [facility] 10-19-2022 08:34-0400 Body temperature 96.62 [degF] Earnest Jett [facility] 10-19-2022 08:34-0400 Heart rate 73 /min Earnest Jett [facility] 09-28-2022 07:54-0400 Body height 167.[address] Work Phone: [facility] 09-28-2022 07:54-0400 Body weight 83.[address] Work Phone: [facility] 09-18-2022 15:12-0400 Body height 167.6 cm Breanna Stern APRN.FIRE CONTROL ASSISTANT Work Phone: [facility] 09-18-2022 15:12-0400 Body temperature 97.5 [degF] Breanna Stern APRN.FIRE CONTROL ASSISTANT Work Phone: [facility] 09-18-2022 15:12-0400 Body weight 83.46 kg Breanna Stern PERIOPERATIVE ASSISTANT.FIRE CONTROL ASSISTANT Work Phone: [facility] 09-18-2022 15:12-0400 Diastolic blood pressure 88 mm[Hg] Breanna Stern APRN.FIRE CONTROL ASSISTANT Work Phone: [facility] 09-18-2022 15:12-0400 Heart rate 65 /min Breanna Stern APRN.FIRE CONTROL ASSISTANT Work Phone: [facility] 09-18-2022 15:12-0400 SaO2% (BldA) [Mass fraction] 99 % Breanna Stern PERIOPERATIVE ASSISTANT.FIRE CONTROL ASSISTANT Work Phone: [facility] 09-18-2022 15:12-0400 Systolic blood pressure 118 mm[Hg] Breanna Stern APRN.FIRE CONTROL ASSISTANT Work Phone: [facility] 07-29-2022 08:40-0400 Blood Pressure Location Rajni Nasim [facility] 07-29-2022 08:40-0400 Diastolic blood pressure 86 mm[Hg] Rajni Lue [facility] 07-29-2022 08:40-0400 Heart rate 71 /min Rajni Lue [facility] 07-29-2022 08:40-0400 Systolic blood pressure 127 mm[Hg] Rajni Lue [facility] 07-22-2022 10:08-0400 Body height 167.6 cm Kasie Avalos MD Work Phone: [facility] 07-22-2022 10:08-0400 Body temperature 98.1 [degF] Kasie Avalos MD Work Phone: [facility] 07-22-2022 10:08-0400 Body weight 79.92 kg Kasie Avalos MD Work Phone: [facility] 07-22-2022 10:08-0400 Diastolic blood pressure 89 mm[Hg] Kasie Avalos MD Work Phone: [facility] 07-22-2022 10:08-0400 Heart rate 72 /min Kasie Avalos MD Work Phone: [facility] 07-22-2022 10:08-0400 SaO2% (BldA) [Mass fraction] 100 % Kasie Avalos MD Work Phone: [facility] 07-22-2022 10:08-0400 Systolic blood pressure 136 mm[Hg] Kasie Avalos MD Work Phone: [facility] 06-12-2022 10:00-0400 Body height 167.6 cm Aliyah Washburn PA-C Work Phone: [facility] 06-12-2022 10:00-0400 Body temperature 97.5 [degF] Aliyah Washburn PA-C Work Phone: [facility] 06-12-2022 10:00-0400 Body weight 84.37 kg Aliyah Washburn PA-C Work Phone: [facility] 06-12-2022 10:00-0400 Diastolic blood pressure 78 mm[Hg] Aliyah Washburn PA-C Work Phone: [facility] 06-12-2022 10:00-0400 Heart rate 68 /min Aliyah Washburn PA-C Work Phone: [facility] 06-12-2022 10:00-0400 Systolic blood pressure 123 mm[Hg] Aliyah Lentzti PA-C Work Phone: [facility] 06-10-2022 17:43-0400 Diastolic blood pressure 74 mm[Hg] [facility] 06-10-2022 17:43-0400 Heart rate 65 /min [facility] 06-10-2022 17:43-0400 Mean blood pressure 90 mm[Hg] [facility] 06-10-2022 17:43-0400 Respiratory rate 16 /min [facility] 06-10-2022 17:43-0400 SaO2% (BldA) [Mass fraction] 100 % [facility] 06-10-2022 17:43-0400 Systolic blood pressure 122 mm[Hg] [facility] 06-10-2022 17:00-0400 Diastolic blood pressure 77 mm[Hg] [facility] 06-10-2022 17:00-0400 Heart rate 66 /min [facility] 06-10-2022 17:00-0400 Mean blood pressure 94 mm[Hg] [facility] 06-10-2022 17:00-0400 Systolic blood pressure 129 mm[Hg] [facility] 06-10-2022 16:00-0400 Heart rate 83 /min [facility] 06-10-2022 16:00-0400 Mean blood pressure 93 mm[Hg] [facility] 06-10-2022 16:00-0400 Systolic blood pressure 130 mm[Hg] [facility] 06-10-2022 12:32-0400 Body temperature 97.7 [degF] [facility] 06-10-2022 12:32-0400 Heart rate 88 /min [facility] 06-10-2022 12:32-0400 Respiratory rate 18 /min [facility] 03-06-2022 15:30-0500 Diastolic blood pressure 70 mm[Hg] Deacon Kat MD Work Phone: [facility] 03-06-2022 15:30-0500 Heart rate 67 /min Deacon Kat MD Work Phone: [facility] 03-06-2022 15:30-0500 Respiratory rate 16 /min Deacon Kat MD Work Phone: [facility] 03-06-2022 15:30-0500 SaO2% (BldA) [Mass fraction] 100 % Deacon Kat MD Work Phone: [facility] 03-06-2022 15:30-0500 Systolic blood pressure 105 mm[Hg] Deacon Kat MD Work Phone: [facility] 03-06-2022 13:00-0500 Body temperature 96.8 [degF] Deacon Kat MD Work Phone: [facility] 03-05-2022 09:33-0500 Body weight 89.81 kg Breanna Stern APRN.CNP Work Phone: [facility] 02-04-2022 09:23-0500 Body height 167.[address] Work Phone: [facility] 02-04-2022 09:23-0500 Body weight 93.[address] Work Phone: [facility] 02-03-2022 14:55-0500 Body height 167.6 cm Breanna Stern PERIOPERATIVE ASSISTANT.FIRE CONTROL ASSISTANT Work Phone: [facility] 02-03-2022 14:55-0500 Body temperature 97 [degF] Breanna Stern PERIOPERATIVE ASSISTANT.FIRE CONTROL ASSISTANT Work Phone: [facility] 02-03-2022 14:55-0500 Body weight 93.44 kg Breanna Stern PERIOPERATIVE ASSISTANT.FIRE CONTROL ASSISTANT Work Phone: [facility] 02-03-2022 14:55-0500 Diastolic blood pressure 81 mm[Hg] Breanna Stern PERIOPERATIVE ASSISTANT.FIRE CONTROL ASSISTANT Work Phone: [facility] 02-03-2022 14:55-0500 Heart rate 76 /min Breanna Stern PERIOPERATIVE ASSISTANT.FIRE CONTROL ASSISTANT Work Phone: [facility] 02-03-2022 14:55-0500 SaO2% (BldA) [Mass fraction] 99 % Breanna Stern PERIOPERATIVE ASSISTANT.FIRE CONTROL ASSISTANT Work Phone: [facility] 02-03-2022 14:55-0500 Systolic blood pressure 128 mm[Hg] Breanna Stern PERIOPERATIVE ASSISTANT.FIRE CONTROL ASSISTANT Work Phone: [facility] 01-28-2022 08:41-0500 Body height 167.6 cm Pacc 2 Work Phone: [facility] 01-28-2022 08:41-0500 Body temperature 97.9 [degF] Pacc 2 Work Phone: [facility] 01-28-2022 08:41-0500 Body weight 94.8 kg Pacc 2 Work Phone: [facility] 01-28-2022 08:41-0500 Diastolic blood pressure 85 mm[Hg] Pacc 2 Work Phone: [facility] 01-28-2022 08:41-0500 Heart rate 65 /min Pacc 2 Work Phone: [facility] 01-28-2022 08:41-0500 Respiratory rate 16 /min Pacc 2 Work Phone: [facility] 01-28-2022 08:41-0500 SaO2% (BldA) [Mass fraction] 100 % Pacc 2 Work Phone: [facility] 01-28-2022 08:41-0500 Systolic blood pressure 131 mm[Hg] Pacc 2 Work Phone: [facility] 01-02-2022 11:06-0500 Body weight 92.99 kg Sabina Vacco PERIOPERATIVE ASSISTANT.FIRE CONTROL ASSISTANT Work Phone: [facility] 12-25-2021 10:10-0500 Diastolic blood pressure 76 mm[Hg] Britt Bradshaw MD Work Phone: [facility] 12-25-2021 10:10-0500 Heart rate 74 /min Britt Bradshaw MD Work Phone: [facility] 12-25-2021 10:10-0500 Respiratory rate 18 /min Britt Bradshaw MD Work Phone: [facility] 12-25-2021 10:10-0500 SaO2% (BldA) [Mass fraction] 100 % Britt Bradshaw MD Work Phone: [facility] 12-25-2021 10:10-0500 Systolic blood pressure 140 mm[Hg] Britt Bradshaw MD Work Phone: [facility] 12-25-2021 08:26-0500 Body height 167.6 cm Britt Bradshaw MD Work Phone: [facility] 12-25-2021 08:26-0500 Body temperature 98.1 [degF] Britt Bradshaw MD Work Phone: [facility] 12-25-2021 08:26-0500 Body weight 92.99 kg Britt Bradshaw MD Work Phone: [facility] 10-09-2021 15:44-0400 Body height 167.6 cm Sabina Vacco PERIOPERATIVE ASSISTANT.FIRE CONTROL ASSISTANT Work Phone: [facility] 10-09-2021 15:44-0400 Body weight 89.81 kg Sabina Benita ANDREWS Work Phone: [facility] 08-30-2021 03:47-0400 Diastolic blood pressure 70 mm[Hg] Pablo Atwood DO Work Phone: [employer] 08-30-2021 03:47-0400 Systolic blood pressure 130 mm[Hg] Pablo Atwood DO Work Phone: [employer] 08-30-2021 03:46-0400 Body temperature 100.4 [degF] Pablo Atwood DO Work Phone: [employer] 08-30-2021 03:46-0400 Heart rate 107 /min Pablo Atwood DO Work Phone: [employer] 08-30-2021 03:46-0400 Respiratory rate 19 /min Pablo Atwood DO Work Phone: [employer] 08-30-2021 03:46-0400 SaO2% (BldA) [Mass fraction] 96 % Pablo Atwood DO Work Phone: [employer] 08-28-2021 07:54-0400 Body height 167.[address] Work Phone: [facility] 08-28-2021 07:54-0400 Body weight 90.[address] Work Phone: [facility] 08-17-2021 12:00-0400 Body height 167.64 cm Shanna June Other [employer] Other 08-17-2021 12:00-0400 Body mass index (BMI) [Ratio] 33.08 kg/m2 Shanna June Other [employer] Other 08-17-2021 12:00-0400 Body temperature 98.1 [degF] Shanna June Other [employer] Other 08-17-2021 12:00-0400 Body weight 92.99 kg Shanna June Other [employer] Other 08-17-2021 12:00-0400 Diastolic blood pressure 80 mm[Hg] Shanna June Other [employer] Other 08-17-2021 12:00-0400 Respiratory rate 18 /min Shanna June Other [employer] Other 08-17-2021 12:00-0400 SaO2% (BldA) [Mass fraction] 99 % Shanna June Other [employer] Other 08-17-2021 12:00-0400 Systolic blood pressure 137 mm[Hg] Shanna June Other [employer] Other 07-27-2021 14:25-0400 Respiratory rate 18 /min Angela Do MD Work Phone: [employer] 07-27-2021 14:03-0400 SaO2% (BldA) [Mass fraction] 98 % Angela Do MD Work Phone: [employer] 07-27-2021 13:27-0400 Diastolic blood pressure 44 mm[Hg] Angela Do MD Work Phone: [employer] 07-27-2021 13:27-0400 Systolic blood pressure 110 mm[Hg] Angela Do MD Work Phone: [employer] 07-27-2021 10:18-0400 Body mass index (BMI) [Ratio] 31.47 kg/m2 Angela Do MD Work Phone: [employer] 07-27-2021 10:18-0400 Body temperature 98.6 [degF] Angela Do MD Work Phone: [employer] 07-27-2021 10:18-0400 Body weight 88.45 kg Angela Do MD Work Phone: [employer] 07-27-2021 10:18-0400 Heart rate 71 /min Angela Do MD Work Phone: [employer] 03-31-2021 11:00-0500 Body height 167.64 cm Shanna Slade Other [employer] Other 03-31-2021 11:00-0500 Body mass index (BMI) [Ratio] 33.08 kg/m2 Shanna Slade Other [employer] Other 03-31-2021 11:00-0500 Body temperature 98 [degF] Shanna Slade Other [employer] Other 03-31-2021 11:00-0500 Body weight 92.99 kg Shanna Slade Other [employer] Other 03-31-2021 11:00-0500 Diastolic blood pressure 91 mm[Hg] Shanna June Other [employer] Other 03-31-2021 11:00-0500 Respiratory rate 18 /min Shanna June Other [employer] Other 03-31-2021 11:00-0500 SaO2% (BldA) [Mass fraction] 100 % Shanna June Other [employer] Other 03-31-2021 11:00-0500 Systolic blood pressure 142 mm[Hg] Shanna June Other [employer] Other 01-28-2021 12:00-0500 Body height 167.64 cm Shanna June Other [employer] Other 01-28-2021 12:00-0500 Body mass index (BMI) [Ratio] 33.08 kg/m2 Shanna June Other [employer] Other 01-28-2021 12:00-0500 Body temperature 98 [degF] Shanna June Other [employer] Other 01-28-2021 12:00-0500 Body weight 92.99 kg Shanna June Other [employer] Other 01-28-2021 12:00-0500 Diastolic blood pressure 92 mm[Hg] Shanna June Other [employer] Other 01-28-2021 12:00-0500 Respiratory rate 18 /min Shanna June Other [employer] Other 01-28-2021 12:00-0500 SaO2% (BldA) [Mass fraction] 100 % Shanna June Other [employer] Other 01-28-2021 12:00-0500 Systolic blood pressure 143 mm[Hg] Shanna Granadosault Other [employer] Other 12-17-2020 17:30-0400 Body height 167.64 cm Shanna Granadosault Other [employer] Other 12-17-2020 17:30-0400 Body mass index (BMI) [Ratio] 32.92 kg/m2 Shanna June Other [employer] Other 12-17-2020 17:30-0400 Body temperature 98.2 [degF] Shanna June Other [employer] Other 12-17-2020 17:30-0400 Body weight 92.53 kg Shanna June Other [employer] Other 12-17-2020 17:30-0400 Diastolic blood pressure 71 mm[Hg] Shanna June Other [employer] Other 12-17-2020 17:30-0400 Respiratory rate 18 /min Shanna June Other [employer] Other 12-17-2020 17:30-0400 SaO2% (BldA) [Mass fraction] 100 % Shanna June Other [employer] Other 12-17-2020 17:30-0400 Systolic blood pressure 117 mm[Hg] Shanna June Other [employer] Other 12-14-2020 15:07-0400 Body height 167.6 cm Shanna June PERIOPERATIVE ASSISTANT - BLEACH MACHINE OPERATOR Work Phone: [employer] Work Phone: 12-14-2020 15:07-0400 Body mass index (BMI) [Ratio] 32.77 kg/m2 Shanna June PERIOPERATIVE ASSISTANT - BLEACH MACHINE OPERATOR Work Phone: [employer] Work Phone: 12-14-2020 15:07-0400 Body temperature 98.8 [degF] Shanna June PERIOPERATIVE ASSISTANT - BLEACH MACHINE OPERATOR Work Phone: [employer] Work Phone: 12-14-2020 15:07-0400 Body weight 92.08 kg Shanna June PERIOPERATIVE ASSISTANT - BLEACH MACHINE OPERATOR Work Phone: [employer] Work Phone: 12-14-2020 15:07-0400 Diastolic blood pressure 90 mm[Hg] Shanna June PERIOPERATIVE ASSISTANT - BLEACH MACHINE OPERATOR Work Phone: [employer] Work Phone: 12-14-2020 15:07-0400 Heart rate 85 /min Shanna June PERIOPERATIVE ASSISTANT - BLEACH MACHINE OPERATOR Work Phone: [employer] Work Phone: 12-14-2020 15:07-0400 Respiratory rate 20 /min Shanna June PERIOPERATIVE ASSISTANT - BLEACH MACHINE OPERATOR Work Phone: [employer] Work Phone: 12-14-2020 15:07-0400 SaO2% (BldA) [Mass fraction] 100 % Shanna June PERIOPERATIVE ASSISTANT - BLEACH MACHINE OPERATOR Work Phone: [employer] Work Phone: 12-14-2020 15:07-0400 Systolic blood pressure 139 mm[Hg] Shanna June PERIOPERATIVE ASSISTANT - BLEACH MACHINE OPERATOR Work Phone: [employer] Work Phone: 07-02-2020 13:16-0400 Diastolic blood pressure 56 mm[Hg] Vaughn Ceja MD Work Phone: [employer] 07-02-2020 13:16-0400 Heart rate 71 /min Vaughn Ceja MD Work Phone: [employer] 07-02-2020 13:16-0400 Respiratory rate 18 /min Vaughn Ceja MD Work Phone: [employer] 07-02-2020 13:16-0400 SaO2% (BldA) [Mass fraction] 99 % Vaughn Ceja MD Work Phone: [facility] 07-02-2020 13:16-0400 Systolic blood pressure 165 mm[Hg] Vaughn Ceja MD Work Phone: [facility] 07-02-2020 12:44-0400 Body temperature 97.39 [degF] Vaughn Ceja MD Work Phone: [facility] 07-02-2020 12:35-0400 Body height 167.6 cm Vaughn Ceja MD Work Phone: [facility] 07-02-2020 12:35-0400 Body mass index (BMI) [Ratio] 37.12 kg/m2 Vaughn Ceja MD Work Phone: [facility] 07-02-2020 12:35-0400 Body weight 104.33 kg Vaughn Ceja MD Work Phone: [facility] 01-30-2020 17:34-0500 BP Diastolic 76 mm[Hg] [facility] 01-30-2020 17:34-0500 BP Systolic 139 mm[Hg] [facility] 01-30-2020 17:34-0500 Pulse (Heart Rate) 87 /min [facility] 01-30-2020 17:34-0500 Pulse Oximetry 100 % [facility] 01-30-2020 17:34-0500 Respiratory Rate 18 /min [facility] 01-30-2020 13:22-0500 Height 167.6 cm [facility] 01-30-2020 13:16-0500 Body Temperature 97.81 [degF] [facility] Encounters Encounter Date Encounter Type Care Provider Facility Start: 10-08-2023 End: 10-08-2023 ambulatory Kasie Avalos MD Work Phone: Gastroenterology Comment on above: [place] Start: 10-08-2023 End: 10-08-2023 Telephone encounter Deacon Kat MD Work Phone: General Surgery Start: 10-07-2023 End: 10-07-2023 ambulatory DEACON KAT Facility:[facility] Start: 10-06-2023 End: 10-06-2023 Admission to [place] [id number] Work Phone: Pre Anesthesia Start: 10-06-2023 End: 10-06-2023 Admission to same day surgery [place] [id number] Work Phone: Pre Anesthesia Comment on above: Pre-op evaluation (P rimary Dx); Idiopathic hypotension; PONV (postoperative nausea and vomiting); RICHAR on CPAP; Mild intermittent asthma without complication; Gastroesophageal reflux disease, unspecified whether esophagitis present; On total parenteral nutrition (TPN); Bariatric surgery status; Jejunostomy tube present (HCC); Acquired hypothyroidism; Anemia, unspecified type; Anxiety and depression; Chronic abdominal pain; Current use of steroid medication Start: 10-06-2023 End: 10-06-2023 Preprocedural examination done [facility] Work Phone: [facility] Work Phone: Start: 10-06-2023 ambulatory DEACON KAT Facilit y:[facility] Start: 10-06-2023 Encounter for other preprocedural examination VIC RAMOS [facility] Start: 10-01-2023 End: 10-01-2023 ambulatory TINO MONAHAN Not Available Start: 09-28-2023 Jessica Avalos MD Work Phone: Gastroenterology Comment on above: Med Change Request Start: 09-28-2023 End: 09-28-2023 [facility] Pablo Lebron PSYD Work Phone: Neurology Comment on above: ARSALAN (generalized anx iety disorder) (Primary Dx); Panic disorder without agoraphobia; Moderate recurrent major depression (HCC); Situational stress Start: 09-27-2023 End: 09-27-2023 ambulatory THOMAS CALIX Facility:[facility] Start: 09-22-2023 End: 09-22-2023 Emergency department patient visit THOMAS CALIX Facility:[facility] Start: 09-20-2023 End: 09-20-2023 ambulatory DEACON KAT Facility:[facility] Start: 09-20-2023 End: 09-20-2023 Telemedicine consultation with patient Deacon Kat MD Work Phone: General Surgery Start: 09-20-2023 End: 09-20-2023 [facility] Deacon Kat MD Work Phone: General Surgery Comment on above: History of gastric b ypass (Primary Dx); Left upper quadrant abdominal pain Refill Request Start: 09-18-2023 End: 09-18-2023 Emergency department patient visit THOMAS CALIX Facility:[facility] Start: 09-17-2023 End: 09-17-2023 Emergency department patient visit SERENA STALEY MD Facility:[facility] Start: 09-12-2023 End: 09-12-2023 Emergency department patient visit CORIE LUANA Facility:[facility] Start: 09-11-2023 End: 09-11-2023 Emergency department patient visit THOMAS CALIX Facility:[facility] Start: 09-09-2023 Admission to [facility] [place] Deacon Kat MD Work Phone: General Surgery Comment on above: 10/20/2023 (Diagnostic Laparoscopy) Start: 09-09-2023 ambulatory Deacon sousa MD Work Phone: General Surgery Start: 09-09-2023 Patient encounter status Deacon Kat MD Work Phone: [facility] Start: 09-08-2023 End: 09-08-2023 ambulatory KASIE AVALOS Facility:[facility] Start: 09-08-2023 End: 09-08-2023 Patient encounter procedure Kasie Avalos MD Work Phone: Gastroenterology Comment on above: Multiple gastric ulc ers (Primary Dx); LUQ pain; Gastroesophageal reflux disease with esophagitis without hemorrhage; Constipation, unspecified constipation type Start: 09-02-2023 Orders Only Kasie Avalos MD Work Phone: Gastroenterology Start: 09-01-2023 End: 09-01-2023 ambulatory TINO WARREN Not Available Start: 08-30-2023 End: 08-31-2023 ambulatory [facility] Facility:[facility] Start: 08-30-2023 End: 08-31-2023 Nursing evaluation [...] esophagitis present Start: 08-26-2023 End: 08-26-2023 ambulatory [facility] Facility:[facility] Start: 08-26-2023 End: 08-26-2023 Subsequent hospital [...] 08-21-2023 End: 08-21-2023 Emergency department patient visit BLEACH MACHINE OPERATOR-Elroy Morrow Work Phone: [facility] Work Phone: Start: 08-18-2023 Telephone encounter Deacon shahid MD Work Phone: General Surgery Comment on above: Patient Question; Ca re Coordinator - Other Start: 08-14-2023 End: 08-14-2023 Emergency department patient visit BLEACH MACHINE OPERATOR-Elroy Morrow Work Phone: [facility] Work Phone: Start: 08-12-2023 Telephone encounter Radha Arzate Gastroenterology Comment on above: Education Of Patient /family; Reminder Call (08/26/23 appt confirmed) Start: 08-09-2023 End: 08-09-2023 ambulatory VIC RAMOS Facility:[facility] Start: 08-09-2023 End: 08-09-2023 Patient encounter procedure Vic Ramos MD Work Phone: Pain Management Comment on above: Neuralgia and neurit is (Primary Dx); Median arcuate ligament syndrome (HCC) Start: 08-07-2023 End: 08-08-2023 Evaluation and management of inpatient SEN MARCUS Facility:[facility] Start: 08-05-2023 ambulatory Boogie Garcia Work Phone: Pain Management Comment on above: Ketamine nasal spray Medication Renewal Start: 08-04-2023 Telephone encounter Boogie Tompkins ud, MD Work Phone: Pain Management Comment on above: Medication Problem Start: 08-04-2023 End: 08-06-2023 Evaluation and management of inpatient [facility] Facility:[facility] Start: 08-04-2023 End: 08-04-2023 ambulatory Rajni Rouse Facility:[facility] Start: 08-04-2023 End: 08-04-2023 Patient encounter procedure Boogie Murguia MD Work Phone: Pain Management Comment on above: Chronic abdominal pa in (Primary Dx); Gastroesophageal reflux disease without esophagitis; Neuralgia and neuritis; Median arcuate ligament syndrome (HCC); S/P gastric bypass Start: 07-31-2023 End: 07-31-2023 Emergency department patient visit POA Morrow Work Phone: [facility] Work Phone: Start: 07-30-2023 End: 07-31-2023 Emergency department patient visit THOMAS CALIX Facility:[facility] Start: 07-28-2023 End: 07-28-2023 ambulatory JR. TINO Elroy WARREN Not Available Start: 07-19-2023 Orders Only Deacon sousa MD Work Phone: General Surgery Comment on above: Chronic nausea (Prim reji Dx); History of laparoscopic partial gastrectomy; History of sphincterotomy of sphincter of Oddi; Median arcuate ligament syndrome (HCC) Start: 07-17-2023 End: 07-20-2023 Evaluation and management of inpatient JAQUAN MORROW Facility:[facility] Start: 07-17-2023 End: 07-17-2023 Evaluation and management of inpatient BLEACH MACHINE OPERATOR-C Jaquan Morrow Work Phone: [facility] Work Phone: Start: 07-15-2023 End: 07-15-2023 ambulatory JAQUAN MORROW Facility:[facility] Start: 07-13-2023 Telephone encounter Natalie Jameson TAIL EDGER Gastroenterology Comment on above: Appointment Start: 07-13-2023 ambulatory OLGA Granados ty:[facility] Start: 07-09-2023 End: 07-09-2023 [facility] Pablo DOUGHERTY Work Phone: Neurology Comment on above: ARSALAN (generalized anx iety disorder) (Primary Dx); Panic disorder without agoraphobia; Moderate recurrent major depression (HCC) Start: 07-06-2023 End: 07-06-2023 Emergency department patient visit JAQUAN MORROW Facility:[facility] Start: 07-06-2023 End: 07-06-2023 ambulatory Francisco J Steve MD Work Phone: Urology Start: 07-06-2023 End: 07-06-2023 Patient encounter procedure Francisco J Steve MD Work Phone: Urology Comment on above: Urinary frequency (P rimary Dx); Urgency of urination Start: 06-29-2023 End: 07-05-2023 ambulatory DAVID VALADEZ [facility] Start: 06-29-2023 End: 06-29-2023 Subsequent hospital visit by physician Sheridan Cr [facility] Start: 06-29-2023 End: 07-03-2023 Evaluation and management of inpatient David Valadez DO Work Phone: [facility] Comment on above: Epigastric pain (Loretta alla Dx); Median arcuate ligament syndrome (CMS-HCC); Nausea and vomiting, unspecified vomiting type; Other specified hyperalimentation; Generalized abdominal pain Start: 06-29-2023 End: 06-29-2023 ambulatory MARCOSKatarina STALLWORTHO Not Available Start: 06-22-2023 End: 06-22-2023 Office outpatient visit 10 minutes Sherry Magaña MD Work Phone: [facility] Comment on above: Median arcuate ligam ent syndrome (CMS-HCC) (Primary Dx) Start: 06-22-2023 End: 06-22-2023 ambulatory SHERRY MAGAÑA [facility] Start: 06-18-2023 End: 06-18-2023 Emergency department patient visit JAQUAN MORROW Facility:[facility] Start: 06-18-2023 End: 06-18-2023 ambulatory JAQUAN MORROW Facility:[facility] Start: 06-18-2023 End: 06-18-2023 Patient encounter procedure Breanna Stern APRN.FIRE CONTROL ASSISTANT Work Phone: General Surgery Comment on above: Sudden onset of sharon re abdominal pain (Primary Dx); Nausea and vomiting, unspecified vomiting type; PEG (percutaneous endoscopic gastrostomy) status ([facility]) Start: 06-17-2023 Telephone encounter May Ramey APRN.FIRE CONTROL ASSISTANT Work Phone: Pain Management Comment on above: Appointment Start: 06-17-2023 End: 06-30-2023 ambulatory Jaquan Morrow Facility:[id number] Start: 06-15-2023 Telephone encounter Deacon shahid MD Work Phone: General Surgery Comment on above: Patient Update; Umm ent Question Start: 06-14-2023 Telephone encounter Stephanie Sumner DO Work Phone: [facility] Start: 06-14-2023 End: 06-14-2023 ambulatory Jaquan L Cristhian Facility:[facility] Afsaneh suarez Start: 06-10-2023 End: 06-15-2023 ambulatory Jaquan L Cristhian Facility:CD:[id number] Start: 06-09-2023 End: 06-09-2023 [facility] Pablo Lebron PSYD Work Phone: Neurology Comment on above: ARSALAN (generalized anx iety disorder) (Primary Dx); Panic disorder without agoraphobia; Moderate recurrent major depression (HCC) Start: 06-06-2023 End: 06-09-2023 Evaluation and management of inpatient CRISELDA ONEAL Facility:[facility] Start: 06-03-2023 End: 06-03-2023 ambulatory JAQUAN SHANNON CRISTHIAN Facility:[facility] Start: 06-02-2023 End: 06-02-2023 ambulatory Jaquan L Cristhian Facility:[facility] Afsaneh suarez Start: 06-01-2023 End: 06-01-2023 ambulatory Vic Ramos MD Work Phone: Pain Management Comment on above: Neuralgia and neurit is (Primary Dx); Gastroesophageal reflux disease without esophagitis; Median arcuate ligament syndrome (HCC); S/P gastric bypass Start: 06-01-2023 End: 06-01-2023 Telemedicine consultation with patient Vic Ramos MD Work Phone: [facility] Start: 05-31-2023 End: 06-09-2023 ambulatory Jaquan L Cristhian Facility:[id number] Start: 05-30-2023 End: 05-31-2023 Emergency department patient visit BLEACH MACHINE OPERATOR-C Jaquan Zamoraab Work Phone: [facility] Work [...] Start: 05-24-2023 End: 05-26-2023 ambulatory Mateusz Garcia Facility:[id number] Start: 05-20-2023 End: 05-20-2023 Emergency department patient visit SYLVAINLOVE NICKERSON Facility:[facility] Start: 05-19-2023 End: 05-19-2023 ambulatory Jaquan L Cristhian Facility:[facility] Afsaneh suarez Start: 05-18-2023 Telephone encounter Deacon shahid MD Work Phone: General Surgery Comment on above: Received Outside Med ical Records Start: 05-18-2023 End: 05-22-2023 Evaluation and management of inpatient DEACON KAT Facility:[facility] Start: 05-17-2023 End: 05-17-2023 ambulatory Deacon Kat MD Work Phone: General Surgery Comment on above: Nausea and vomiting, unspecified vomiting type (Primary Dx) Start: 05-17-2023 End: 05-17-2023 Telemedicine consultation with patient Deacon Kat MD Work Phone: [facility] Start: 05-17-2023 End: 05-17-2023 Emergency department patient visit Ashutosh Albright [facility] Start: 05-17-2023 End: 05-19-2023 ambulatory Jaquan L Cristhian Facility:[id number] Start: 05-12-2023 End: 05-14-2023 ambulatory Moncho Trejo Facility:[facility] Start: 05-12-2023 End: 05-14-2023 Observation Moncho Trejo [facility] Start: 05-11-2023 End: 05-11-2023 Emergency department patient visit Mateusz Garcia [facility] Start: 05-10-2023 Telephone encounter Deacon shahid MD Work Phone: General Surgery Comment on above: Patient Question Start: 05-10-2023 End: 05-10-2023 ambulatory Jaquan L Cristhian Facility:[facility] Afsaneh cárdenase Start: 05-09-2023 End: 05-09-2023 Emergency department patient visit Mateusz Garcia [facility] Start: 05-07-2023 Telephone encounter Santa Hart RN Ambulatory Surgery Comment on above: Appointment (Cancel EGD) Start: 05-06-2023 End: 05-06-2023 Emergency department patient visit Mateusz Garcia [facility] Start: 04-30-2023 End: 04-30-2023 ambulatory Jaquan L Cristhian Facility:[facility] Afsaneh cárdenase Start: 04-28-2023 End: 04-28-2023 ambulatory KASIE AVALOS Facility:[facility] Start: 04-28-2023 End: 04-28-2023 Patient encounter procedure Kasie Avalos MD Work Phone: Gastroenterology Comment on above: Gastroesophageal ref lux disease, unspecified whether esophagitis present (Primary Dx); Constipation, unspecified constipation type Start: 04-20-2023 End: 04-20-2023 Office outpatient visit 10 minutes Sherry Magaña MD Work Phone: [facility] Comment on above: Median arcuate ligam ent syndrome (CMS/HCC) (Primary Dx) Start: 04-20-2023 End: 04-20-2023 ambulatory SHERRY Flores [facility] Start: 04-07-2023 End: 04-07-2023 Postop follow up visit related to original px Sherry Magaña MD Work Phone: [facility] Comment on above: Median arcuate ligam ent syndrome (CMS/HCC) (Primary Dx) Start: 04-07-2023 End: [facility] Start: 04-07-2023 End: 04-07-2023 Admission to same day surgery center Deacon Kat MD Work Phone: Endocrinology BMI Comment on above: Bariatric surgery [facility] at[facility] (Primary Dx); Dietary zinc deficiency; Vitamin D deficiency Start: 04-07-2023 End: 04-07-2023 ambulatory SELF Facility:[facility] Start: 04-07-2023 End: 04-07-2023 Telemedicine consultation with patient Deacon Kat MD Work Phone: [facility] Start: 04-06-2023 End: 04-06-2023 Emergency department patient visit BLEACH MACHINE OPERATOR-Elroy Morrow Work Phone: [facility] Work Phone: Start: 04-02-2023 End: 04-02-2023 Emergency department patient visit Sanchojessenia Valles Jose Ramon [facility] Start: 03-24-2023 End: 03-24-2023 ambulatory Jaquan Morrow Facility:[facility] Start: 03-16-2023 End: 03-20-2023 Evaluation and management of inpatient Melisa Barker MD Work Phone: [facility] Comment on above: Abdominal pain (Prim reji Dx); Nausea and vomiting, unspecified vomiting type; History of gastric bypass; Median arcuate ligament syndrome (CMS/HCC) Start: 03-16-2023 End: 03-16-2023 Emergency department patient visit Earnest Jett [facility] Start: 03-15-2023 End: 03-15-2023 Emergency department patient visit Earnest Jett [facility] Start: 03-05-2023 End: 03-10-2023 Evaluation and management of inpatient Woosup M Park MD Work Phone: [facility] Comment on above: Median arcuate ligam ent syndrome (CMS/HCC) (Primary Dx) Start: 03-02-2023 End: 03-03-2023 ambulatory NO ASSIGNED PCP GENERIC PROVIDER [facility] Start: 03-02-2023 End: 03-02-2023 ambulatory NO ASSIGNED PCP GENERIC PROVIDER [facility] Start: 03-02-2023 End: 03-02-2023 Encounter for other preprocedural examination NO ASSIGNED PCP GENERIC PROVIDER [facility] Start: 02-13-2023 End: 02-13-2023 Emergency department patient visit BLEACH MACHINE OPERATOR-C Jaquan Morrow Work Phone: [facility] Work Phone: Start: 02-12-2023 End: 02-12-2023 Emergency department patient visit NO ASSIGNED PCP GENERIC PROVIDER [facility] Start: 02-10-2023 End: 02-10-2023 ambulatory JAQUAN L CRISTHIAN Facility:[facility] Start: 02-03-2023 End: 02-03-2023 ambulatory Jaquan L Cristhian Facility:[facility] Start: 01-15-2023 Telephone encounter Deacon shahid MD Work Phone: Endocrinology BMI Comment on above: Patient Question; Pa tient Update Start: 01-14-2023 End: 01-14-2023 ambulatory Vic Ramos MD Work Phone: Pain Management Comment on above: Waitlist Start: 01-13-2023 End: 01-13-2023 Emergency department patient visit NO ASSIGNED PCP GENERIC PROVIDER [facility] Start: 01-11-2023 Orders Only Vic Conner am, [...] Vic Ramos MD Work Phone: [facility] Start: 01-06-2023 Telephone encounter Vic saldana MD Work Phone: Pain Management Comment on above: Appointment Start: 12-31-2022 End: 12-31-2022 Emergency department patient visit Mateusz Garcia [facility] Start: 12-29-2022 End: 12-29-2022 ambulatory Jaquan L Cristhian Facility:[facility] Start: 12-28-2022 Telephone encounter Deacon shahid MD Work Phone: General Surgery Comment on above: Patient Update; Orde rs Start: 12-21-2022 End: 12-21-2022 ambulatory [facility] Start: 12-14-2022 End: 12-14-2022 ambulatory Deacon Kat MD Work Phone: Endocrinology BMI Comment on above: Worsening Symptoms S evere Abdominal pain, unsp ecified abdominal location (Primary Dx) Start: 12-14-2022 End: 12-15-2022 Emergency department patient visit JAQUAN MORROW [facility] Start: 12-14-2022 End: 12-14-2022 Telemedicine consultation with patient Deacon Kat MD Work Phone: [facility] Start: 12-09-2022 ambulatory Jaquan L Cristhian Facility: [facility] Start: 12-06-2022 End: 12-09-2022 Evaluation and management of inpatient SHANNA WOODS Facility:[facility] Start: 12-04-2022 End: 12-04-2022 Patient encounter procedure Agustin Zamorano MD Work Phone: General Surgery Comment on above: Generalized abdomina l pain (Primary Dx) Start: 12-04-2022 End: 12-04-2022 ambulatory AGUSTIN ZAMORANO Facility:[facility] Start: 12-03-2022 Telephone encounter Oliva Dobbs RN General Surgery Start: 12-01-2022 Telephone encounter Deacon shahid MD Work Phone: Endocrinology BMI Comment on above: Patient Update Start: 12-01-2022 End: 12-01-2022 ambulatory Lokesh Terry Facility:[facility] Afsaneh suarez Start: 11-27-2022 End: 12-03-2022 Evaluation and management of inpatient CAMDEN RODRIGUEZ [facility] Start: 11-26-2022 ambulatory DEACON KAT Facilit y:[facility] Start: 11-26-2022 End: 11-26-2022 Subsequent hospital visit by physician Jing[facility] Work Phone: CARDIOVASCULAR TESTING Comment on above: Chronic nausea [R11. 0] Start: 11-26-2022 End: 11-26-2022 ambulatory JAQUAN ZAMORAAB Facility:[facility] Start: 11-25-2022 Telephone encounter [facility] [place] Work Phone: Chronic Care Start: 11-25-2022 End: 11-25-2022 ambulatory Jaquan L Cristhian Facility:[facility] Afsaneh suarez Start: 11-23-2022 Telephone encounter Deacon shahid MD Work Phone: Endocrinology BMI Comment on above: Patient Update Start: 11-22-2022 End: 11-23-2022 ambulatory RASHMI BEATRICE [facility] Start: 11-17-2022 End: 11-17-2022 ambulatory Deacon Kat MD Work Phone: Endocrinology BMI Comment on above: On-Call Surgeon - Se nt to ER Start: 11-16-2022 End: 11-17-2022 Refill Deacon Kat MD Work Phone: Endocrinology BMI Start: 11-16-2022 End: 11-16-2022 Lab Drop off Jaquan L Cristhian [facility] Start: 11-14-2022 ambulatory Deacon sousa MD Work Phone: [facility] Start: 11-14-2022 Nutrition therapy Deacon turner MD Work Phone: Endocrinology BMI Comment on above: IV Nutrition Start: 11-13-2022 End: 11-13-2022 ambulatory [facility] Facility:[facility] Start: 11-11-2022 End: 11-12-2022 ambulatory JAQUAN SHANNON [facility] Facility:[facility] Start: 11-10-2022 End: 11-10-2022 ambulatory JAQUAN SHANNON [facility] Facility:[facility] Start: 11-09-2022 Telephone encounter Deacon shahid MD Work Phone: Endocrinology BMI Comment on above: Surgery Rescheduled Start: 11-06-2022 [facility] Radiology Molecular Comment on above: Radiology NM Start: 11-06-2022 Patient encounter procedure [facility] Start: 11-06-2022 Telephone encounter Deacon shahid MD Work Phone: Endocrinology BMI Comment on above: Patient Update Start: 11-05-2022 End: 11-08-2022 ambulatory [facility] Facility:[facility] Start: 11-04-2022 End: 11-04-2022 Patient encounter procedure Deacon Kat MD Work Phone: Endocrinology BMI Comment on above: Nausea (Primary Dx); RUQ pain; History of cholecystectomy Dehydration (Primary Dx); RUQ pain Right knee pain, uns pecified chronicity (Primary Dx) Start: 11-04-2022 End: 11-04-2022 ambulatory Rheu Chair 5 Jeanne Work Phone: Infusion Start: 11-04-2022 ambulatory DEACON KAT Facilit y:[facility] Start: 11-04-2022 End: 11-04-2022 Subsequent hospital visit by physician [facility] Work Phone: [facility] Radiology Ultrasound Comment on above: Nausea [R11.0] Start: 11-04-2022 End: 11-04-2022 ambulatory JAQUANMERCEDES ORTEGA CRISTHIAN Facility:[facility] Start: 11-03-2022 End: 11-03-2022 ambulatory Jaquan L Cristhian Facility:[facility] Afsaneh cárdenase Start: 11-02-2022 Refill Haroon ahumada APRN.FIRE CONTROL ASSISTANT Work Phone: Neurology Start: 11-02-2022 End: 11-02-2022 Emergency department patient visit DIMITRI WALKER [facility] Start: 11-02-2022 End: 11-02-2022 Emergency department patient visit Dimitri Walker MD Work Phone: [facility] Start: 11-01-2022 ambulatory Deacon sousa MD Work Phone: Endocrinology BMI Comment on above: Worsening Symptoms Problem Start: 10-31-2022 Refill Breanna Stern APRN.FIRE CONTROL ASSISTANT Work Phone: General Surgery Comment on above: Refill Request Start: 10-31-2022 End: 10-31-2022 Emergency department patient visit [facility] Start: 10-31-2022 End: 10-31-2022 Emergency department patient visit Jalyn Suresh DO Work Phone: [facility] ED Comment on above: Back strain, initial encounter (Primary Dx) Start: 10-29-2022 End: 11-30-2022 ambulatory Jaquan L Cristhian Facility:[id number] Start: 10-27-2022 End: 10-27-2022 ambulatory JACKSON ANDERSON [facility] Start: 10-26-2022 End: 10-26-2022 ambulatory Jaquan L Cristhian Facility:[facility] [place] [facility] Start: 10-25-2022 End: 10-28-2022 ambulatory RAYNA BILLINGSLEY [facility] Start: 10-24-2022 ambulatory Deacon sousa MD Work Phone: Endocrinology BMI Comment on above: Symptoms Start: 10-23-2022 End: 10-23-2022 Emergency department patient visit WALLY Graf [facility] Start: 10-21-2022 End: 10-21-[address] [facility] Facility:[facility] Afsaneh suarez Start: 10-21-2022 End: 10-21-2022 Emergency department patient visit JAQUAN ORTEGA [facility] Facility:[facility] Start: 10-20-2022 Telephone encounter Deacon shahid MD Work Phone: General Surgery Comment on above: Patient Question; Na usea & Vomiting Start: 10-20-2022 End: 10-20-2022 Emergency department patient visit Earnest Jett [facility] Start: 10-19-2022 ambulatory Breanna Stern APRN.CNP Work Phone: General Surgery Comment on above: Worsening Symptoms Start: 10-19-2022 End: 10-19-2022 Emergency department patient visit Earnest Jett [facility] Start: 10-18-2022 Emergency department patient visit JAQUAN [facility] Facility:[facility] Start: 10-17-2022 End: 10-17-2022 Emergency department patient visit [facility] Start: 10-15-2022 Refill Kasie Avalos MD Work Phone: Gastroenterology Comment on above: Refill Request Start: 10-07-2022 End: 10-07-[address] [facility] Facility:[facility] Afsaneh suarez Start: 10-05-2022 End: 10-05-2022 [facility] Pablo Lebron PSYD Work Phone: Neurology Comment on above: ARSALAN (generalized anx iety disorder) (Primary Dx); Panic disorder without agoraphobia; Moderate recurrent major depression (HCC) Start: 09-28-2022 End: 09-28-[address] Work Phone: Endocrinology BMI Comment on above: Postoperative malabs orption (Primary Dx); S/P gastric bypass; Overweight (BMI 25.0-29.9); Dietary counseling and surveillance Start: 09-28-2022 End: 09-28-2022 Telemedicine consultation with patient Xiomara Zhou DADA Work Phone: [facility] Start: 09-21-2022 End: 09-21-2022 [facility] Pablo Lebron PSYD Work Phone: Neurology Comment on above: ARSALAN (generalized anx iety disorder) (Primary Dx); Panic disorder without agoraphobia; Moderate recurrent major depression (HCC) Start: 09-18-2022 End: 09-18-2022 Patient encounter procedure Breanna Merlin PERIOPERATIVE ASSISTANT.FIRE CONTROL ASSISTANT Work Phone: General Surgery Comment on above: Encounter for surgic al aftercare following surgery of digestive system (Primary Dx); Impaired intestinal absorption; Esophageal dysphagia; Gastroesophageal reflux disease, unspecified whether esophagitis present; S/P bariatric surgery Start: 08-06-2022 ambulatory Kasie Avalos MD Work Phone: Gastroenterology Comment on above: Medication Coverage Start: 07-29-2022 End: 07-29-2022 Patient encounter procedure Rajni Rouse [facility] Start: 07-28-2022 End: 07-28-2022 Patient [...] 07-20-2022 Lab Drop off Jaquan Alex Morrow [facility] Start: 06-18-2022 End: 06-18-2022 ambulatory Aliyah Wu INMAN-Elroy Work Phone: Rheumatology [facility] [place] Comment on above: Encounter to discuss test results (Primary Dx); NO SHOW Start: 06-18-2022 End: 06-18-2022 Telemedicine consultation with patient Aliyah Washburn HENNY-C Work Phone: [facility] Start: 06-12-2022 End: 06-12-2022 Patient encounter procedure Aliyah Washburn HENNY-C Work Phone: Rheumatology [facility] Comment on above: Polyarthralgia (Prim reji Dx); Malaise and fatigue; Subjective fever; S/P laparoscopic sleeve gastrectomy; History of syncope; History of adrenal insufficiency; Hypothyroidism, unspecified type Start: 06-11-2022 End: 07-24-2022 Pre-admission assessment Rui Joyner [facility] Start: 06-10-2022 End: 06-10-2022 Emergency department patient visit Ashutosh Valles Jose Ramon [facility] Start: 06-09-2022 End: 06-09-[address] DOCTOR CARRERA Facility:[facility] Start: 05-22-2022 End: 05-23-[address] WALLY FOLEY . Facility:[facility] Start: 03-30-2022 ambulatory Breanna Stern APRN.CNP Work Phone: [facility] Start: 03-30-2022 Patient encounter procedure Breanna Stern APRN.FIRE CONTROL ASSISTANT Work Phone: General Surgery Comment on above: Cancel Appointment C annot Reach Anyone Start: 03-06-2022 End: 03-06-2022 Subsequent hospital visit by physician Deacon Kat MD Work Phone: [facility] Endoscopy - ENDO Comment on above: Esophageal dysphagia [R13.19] Start: 03-05-2022 Telephone encounter Li márquez RN Work Phone: Endocrinology BMI Comment on above: EGD Instructions Start: 03-05-2022 End: 03-05-2022 ambulatory Breanna Stern PERIOPERATIVE ASSISTANT.FIRE CONTROL ASSISTANT Work Phone: General Surgery Comment on above: Esophageal dysphagia (Primary Dx); S/P gastric bypass; Postoperative malabsorption Start: 03-05-2022 End: 03-05-2022 Telemedicine consultation with patient Breanna Stern APRN.FIRE CONTROL ASSISTANT Work Phone: [facility] Start: 03-02-2022 End: 03-03-[address] WALLY FOLEY . Facility: Start: 02-17-2022 End: 02-18-[address] WALLY FOLEY . Facility: Start: 02-13-2022 End: 02-13-2022 Patient encounter procedure Kuldip Yousif MD Work Phone: [facility] Comment on above: Acetabular labrum te ar, right, subsequent encounter (Primary Dx) Start: 02-05-2022 Orders Only Deacon sousa MD Work Phone: Endocrinology BMI Comment on above: Postoperative pain Start: 02-04-2022 ambulatory Deacon sousa MD Work Phone: [facility] Start: 02-04-2022 Follow-up encounter Deacon shahid MD Work Phone: Endocrinology BMI Comment on above: Surgery Follow-Up Start: 02-04-2022 End: 02-04-2022 Admission to same day surgery center Nahed Tamez RD Work Phone: Nutrition Therapy Comment on above: S/P gastric surgery (Primary Dx); Dietary counseling Start: 02-04-2022 End: 02-04-2022 Telemedicine consultation with patient Nahed Tamez RD Work Phone: [facility] Start: 02-03-2022 End: 02-03-2022 Patient encounter procedure Breanna Stern PERIOPERATIVE ASSISTANT.FIRE CONTROL ASSISTANT Work Phone: General Surgery Comment on above: S/P bariatric surger y (Primary Dx); Postoperative pain; Primary osteoarthritis involving multiple joints Start: 02-02-2022 Telephone encounter Deacon shahid MD Work Phone: General Surgery Comment on above: Medication Question Start: 01-31-2022 ambulatory Deacon sousa MD Work Phone: Endocrinology BMI Comment on above: Home prescription qu estion Start: 01-28-2022 End: 01-28-2022 [facility] Start: 01-28-2022 End: 01-28-2022 ambulatory Pac [...] [facility] Sabina Joy PERIOPERATIVE ASSISTANT.FIRE CONTROL ASSISTANT Work Phone: General Surgery Comment on above: [...] Kat Start: 11-18-2021 Patient Update Breanna Stern APRN.FIRE CONTROL ASSISTANT Work Phone: Endocrinology BMI Comment on above: Orders (pH Impedence ) Start: 11-17-2021 End: 11-17-2021 Telemedicine consultation with patient Deacon Kat MD Work Phone: [facility] Start: 11-17-2021 End: 11-17-2021 ambulatory Deacon Kat MD Work Phone: Endocrinology BMI Comment on above: Gastroesophageal ref lux disease without esophagitis (Primary Dx) Refill Request; Refi ll Request Start: 10-27-2021 End: 10-28-[address] WALLY FOLEY . Facility: Start: 10-21-2021 Telephone encounter Kuldip mckeon MD Work Phone: [facility] Comment on above: Appointment Start: 10-09-2021 End: 10-09-2021 [facility] Sabina Benita SMALLS.FIRE CONTROL ASSISTANT Work Phone: General Surgery Comment on above: Gastroesophageal ref lux disease, unspecified whether esophagitis present (Primary Dx); Bariatric surgery status; Weight disorder; Class 1 obesity with serious comorbidity and body mass index (BMI) of 31.0 to 31.9 in adult, unspecified obesity type; S/P laparoscopic sleeve gastrectomy; Dietary counseling and surveillance Start: 10-08-2021 ambulatory Kuldip Yousif MD Work Phone: [facility] Start: 10-08-2021 Patient encounter procedure Kuldip Yousif MD Work Phone: [facility] Comment on above: Appointment Time Tod ay Start: 10-04-2021 End: 10-05-[address] WALLY FOLEY . Facility: Start: 08-30-2021 End: 08-30-2021 Emergency department patient visit Pablo Atwood DO Work Phone: [facility] ED Comment on above: Dental infection (Pr imary Dx) Start: 08-29-2021 End: 08-29-2021 ambulatory Justine Shabazz PA-C Work Phone: [facility] Comment on above: Tear of right acetab ular labrum, subsequent encounter (Primary Dx) Start: 08-29-2021 End: 08-29-2021 Telemedicine consultation with patient Justine Shabazz PA-C Work Phone: [facility] [address] Start: 08-28-2021 Refill Justine ardon PA-C Work Phone: [facility] Comment on above: Refill Request Start: 08-28-2021 End: 08-28-2021 ambulatory Xiomara Zhou DADA Work Phone: General Surgery Comment on above: S/P laparoscopic sle dee dee gastrectomy (Primary Dx); Obesity, Class I, BMI 30-34.9; Dietary counseling and surveillance Start: 08-28-2021 End: 08-28-2021 Telemedicine consultation with patient Xiomara Zhou RD Work Phone: [facility] Start: 08-25-2021 Encounter for genera l adult medical examination without abnormal findings SHANNA JUNE [facility] Start: 08-24-2021 ambulatory Deacon sousa MD Work [...] 08-17-2021 End: 08-17-2021 ambulatory Shanna June Other [employer] Other Start: 08-17-2021 Office outpatient vi sit 15 minutes Shanna June [facility] Start: 08-14-2021 Refill Justine ardon PA-C Work Phone: [facility] Comment on above: Refill Request Start: 08-01-2021 End: 08-01-2021 ambulatory Justine Shabazz PA-C Work Phone: [facility] Comment on above: Tear of right acetab ular labrum, subsequent encounter (Primary Dx) Start: 08-01-2021 End: 08-01-2021 Telemedicine consultation with patient Justine Johnsonc PA-C Work Phone: [facility] [address] Start: 07-30-2021 End: 07-30-[address] MRACOS MORENO . Facility:[facility] Start: 07-28-2021 ambulatory Justine Johnson Banj ac PA-C Work Phone: [facility] [address] Start: 07-28-2021 Patient encounter procedure Justine Johnson Banjac PA-C Work Phone: [facility] Comment on above: Virtual Appointment Start: 07-27-2021 End: 07-27-2021 Emergency department patient visit Angela Do MD Work Phone: [facility] ED Comment on above: Generalized abdomina l pain (Primary Dx) Start: 07-14-2021 ambulatory Justine Johnson Banj ac PA-C Work Phone: [facility] Comment on above: Medication Start: 07-11-2021 End: 08-26-[address] DOCTOR CARRERA Facility:[facility] Start: 07-04-2021 End: 07-04-2021 ambulatory Justine Johnson Banjac PA-C Work Phone: [facility] Comment on above: Tear of right acetab ular labrum, subsequent encounter (Primary Dx) Start: 07-04-2021 End: 07-04-2021 Telemedicine consultation with patient Justine Johnsonc PA-C Work Phone: [facility] [address] Start: 06-23-2021 Admission to [facility] Jace Duarte AT Work Phone: [facility] Comment on above: Schedule Surgery Start: 06-23-2021 ambulatory Jace solomon AT Work Phone: [facility] [address] Start: 06-18-2021 End: 06-18-2021 Patient encounter procedure Kuldip Yousif MD Work Phone: [facility] Comment on above: Acetabular labrum te ar, right, initial encounter (Primary Dx) Start: 06-02-2021 ambulatory LUCIE Foster lity:[facility] Start: 06-02-2021 End: 06-02-2021 Office outpatient visit 15 minutes Lucie Mora MD Work Phone: [facility] Comment on above: 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) Start: 04-02-2021 End: 04-02-2021 ambulatory Shanna June Other [employer] Other Start: 04-02-2021 Telephone encounter Shanna hooks [facility] Start: 03-31-2021 End: 03-31-2021 ambulatory Shanna June Other [employer] Other Start: 03-31-2021 Office outpatient vi sit 15 minutes Shanna June [facility] Start: 03-10-2021 End: 03-10-2021 ambulatory Shanna June Other [employer] Other Start: 03-10-2021 Telephone encounter Shanna hooks [facility] Start: 01-28-2021 End: 01-28-2021 ambulatory Shanna June Other [employer] Other Start: 01-28-2021 Office outpatient vi sit 15 minutes Shanna June [facility] Start: 12-17-2020 End: 12-17-2020 ambulatory Shanna June Other [employer] Other Start: 12-17-2020 Encounter for genera l adult medical examination without abnormal findings Shanna June [facility] Start: 12-17-2020 Periodic preventive med est patient 18-39 yrs Shanna June [facility] Start: 12-14-2020 End: 12-14-2020 Emergency department patient visit Shanna June PERIOPERATIVE ASSISTANT - BLEACH MACHINE OPERATOR Work Phone: [facility] ED Comment on above: Contusion of right t humb without damage to nail, initial encounter (Primary Dx) Start: 12-09-2020 ambulatory LUCIE MORA Facmichael lity:[facility] LOC Start: 07-02-2020 End: 07-02-2020 Emergency department patient visit Vaughn Ceja MD Work Phone: [facility] Start: 01-30-2020 End: 01-30-2020 Emergency department patient visit Agustin Gustafson Work Phone: [facility] Start: 09-25-2019 End: 08-04-2023 Preprocedural examination done Kuldip Yousif MD Work Phone: [facility] Work Phone: Start: 09-10-2017 End: 09-11-2017 Patient encounter DEFAULT PHYSICIAN Facility:[facility] Procedures Date Procedure Procedure Detail Performing Clinician Start: 08-26-2023 Esophagoscp rig transoral hypopharynx crv rene Avalos MD Work Phone: Start: 08-21-2023 Computed tomography of abdomen and pelvis with contrast BLEACH MACHINE OPERATOR-C Jaquan Morrow Work Phone: Start: 08-14-2023 Computed tomography of abdomen and pelvis with contrast BLEACH MACHINE OPERATOR-C Jaquan Cristhian Work Phone: Start: 07-31-2023 Computed tomography of abdomen and pelvis with contrast BLEACH MACHINE OPERATOR-C Jaquan Cristhian Work Phone: Start: 07-16-2023 Computed tomography of abdomen and pelvis with contrast BLEACH MACHINE OPERATOR-C Jaquan Cristhian Work Phone: Start: 07-06-2023 Urnls dip stick/tablet rgnt auto w/o microscopy Bulk Order Provider Start: 07-03-2023 LONG CATHETER REMOVAL [place] Start: 07-03-2023 DISCHARGE PATIENT [place] Start: 07-03-2023 Glucose [Mass/volume] in Serum or Plasma [facility] Start: 07-03-2023 Glucose quantitative blood xcpt reagent [...] NOT REMOVE URINARY CATHETER WITHOUT PROVIDER ORDER [facility] Start: 07-02-2023 Glucose [Mass/volume] in Serum or Plasma [facility] Start: 07-02-2023 CBC panel - Blood by Automated count [facility] Start: 07-02-2023 RENAL FUNCTION PANEL PHANI GÓMEZ Start: 07-02-2023 Glucose quantitative blood xcpt reagent strip Dolores Cox MD Work Phone: Start: 07-02-2023 Renal function panel Dolores Cox MD Work Phone: Start: 07-02-2023 Glucose [Mass/volume] in Serum or [facility] Start: 07-01-2023 Glucose quantitative blood xcpt reagent strip Dolores Cox MD Work Phone: Start: 07-01-2023 Glucose [Mass/volume] in Serum or [facility] Start: 07-01-2023 Glucose quantitative blood xcpt reagent strip Dolores Cox MD Work Phone: Start: 07-01-2023 Glucose [Mass/volume] in Serum or Plasma [facility] Start: 07-01-2023 Glucose quantitative blood xcpt reagent strip Dolores Cox MD Work Phone: Start: 07-01-2023 XR CHEST 1 VIEW [facility] Start: 07-01-2023 Glucose [Mass/volume] in Serum or Plasma [facility] Start: 07-01-2023 Glucose [Mass/volume] in Serum or Plasma [facility] Start: 07-01-2023 Radiologic exam chest single view Yajaira aamir Cox MD Work Phone: Start: 07-01-2023 Glucose quantitative blood xcpt reagent strip Dolores Cox MD Work Phone: Start: 07-01-2023 Glucose quantitative blood xcpt reagent strip Dolores Cox MD Work Phone: Start: 07-01-2023 Glucose [Mass/volume] in Serum or Plasma [facility] Start: 07-01-2023 Glucose quantitative blood xcpt reagent strip Dolores Cox MD Work Phone: Start: 07-01-2023 CBC panel - Blood by Automated count [facility] Start: 07-01-2023 Magnesium [Mass/volume] in Serum or Plasma [facility] Start: 07-01-2023 RENAL FUNCTION PANEL [facility] Start: 07-01-2023 Renal function panel Dolores Cox MD Work Phone: Start: 07-01-2023 BATH/SHOWER WITH CHLORHEXIDINE GLUCONATE [facility] Start: 06-30-2023 Glucose [Mass/volume] in Serum or Plasma [facility] Start: 06-30-2023 Glucose quantitative blood xcpt reagent strip Dolores Cox MD Work Phone: Start: 06-30-2023 MAY PARTICIPATE IN ROOM SERVICE [facility] Start: 06-30-2023 IP CONSULT TO SPIRITUAL CARE [facility] Start: 06-30-2023 IP CONSULT TO NUTRITION SERVICES [facility] Start: 06-30-2023 IP CONSULT TO SOCIAL WORK [facility] Start: 06-30-2023 IP CONSULT TO RESPIRATORY CARE [facility] Start: 06-30-2023 NOTIFY PROVIDER (DO NOT PROMPT FOR PARAMETERS) [facility] Start: 06-30-2023 NURSING COMMUNICATION [facility] Start: 06-30-2023 PULSE OXIMETRY, CONTINUOUS [facility] Start: 06-30-2023 ECG 12-LEAD [facility] Start: 06-30-2023 STAPHYLOCOCCUS AUREUS/MRSA COLONIZATION, CULTURE [facility] Start: 06-30-2023 Glucose [Mass/volume] in Serum or Plasma [facility] Start: 06-30-2023 CT ANGIO ABDOMEN PELVIS W AND/OR WO IV IV CONTRAST [facility] Start: 06-30-2023 VASC US MESENTERIC ARTERY DUPLEX COMPLETE [facility] Start: 06-30-2023 Glucose quantitative blood xcpt reagent strip Baldomero Woodard MD Work Phone: Start: 06-30-2023 Ct angio abd&plvis cntrst mtrl w/wo cntrst img Tiffanie Mendez PERIOPERATIVE ASSISTANT-FIRE CONTROL ASSISTANT Work Phone: Start: 06-30-2023 Dup-scan artl tiara abdl/pel/scrot&/rpr orgn com Jamil Gavin MD Work Phone: Start: 06-30-2023 CBC panel - Blood by Automated count [facility] Start: 06-30-2023 Comprehensive metabolic 2000 panel - Serum or Plasma [facility] Start: 06-30-2023 Magnesium [Mass/volume] in Serum or Plasma [facility] Start: 06-30-2023 Phosphate [Mass/volume] in Serum or Plasma [facility] Start: 06-30-2023 Comprehensive metabolic panel Baldomero serrano MD Work Phone: Start: 06-30-2023 IP CONSULT TO VASCULAR SURGERY [facility]ERR[facility]STILLO Start: 06-30-2023 CENTRAL VENOUS LINE CAP CHANGE - ADULTS [facility] [facility] Start: 06-30-2023 CENTRAL VENOUS LINE DRESSING CHANGE - ADULT [facility] Start: 06-30-2023 CENTRAL VENOUS LINE TUBING CHANGE - ADULTS [facility] Start: 06-30-2023 IP CONSULT TO ACUTE CARE SURGERY [facility] Start: 06-30-2023 GASTRIC TUBE CARE [facility] Start: 06-30-2023 NOTIFY PROVIDER (PROMPT FOR PARAMETERS) [facility] Start: 06-30-2023 NURSING COMMUNICATION [facility] Start: 06-30-2023 NURSING COMMUNICATION - DO NOT USE IN ORDER SETS [facility] Start: 06-30-2023 POCT GLUCOSE METER [facility] Start: 06-30-2023 EXTRA URINE [place] TUBE [facility] Start: 06-30-2023 HCG, URINE, QUALITATIVE [facility] Start: 06-30-2023 URINALYSIS WITH REFLEX CULTURE AND MICROSCOPIC [facility] Start: 06-30-2023 [facility] Start: 06-30-2023 ED TO FLOOR BED REQUEST [facility] Start: 06-30-2023 EXTRA URINE OR[place]O TUBE David Valadez DO Work Phone: Start: 06-30-2023 Urinalysis complete W Reflex Culture panel - Urine David Jania Rory DO Work Phone: Start: 06-30-2023 Urnls dip stick/tablet rgnt auto w/o microscopy Davidalex Valadez DO Work Phone: Start: 06-30-2023 CT ABDOMEN PELVIS WO IV CONTRAST [facility] Start: 06-29-2023 Ct abdomen & pelvis w/o contrast material David Valadez DO Work Phone: Start: 06-29-2023 Basic metabolic 2000 panel - Serum or [facility] Start: 06-29-2023 CBC panel - Blood by Automated count [facility] Start: 06-29-2023 Glucose [Mass/volume] in Serum or Plasma [facility] Start: 06-29-2023 CBC W Auto Differential panel - Blood [facility] Start: 06-29-2023 Comprehensive metabolic 2000 panel - Serum or Plasma [facility] Start: 06-29-2023 Comprehensive metabolic panel David rowland DO Work Phone: Start: 06-29-2023 Ecg routine ecg w/least 12 lds trcg only w/o i&r David Valadez DO Work Phone: Start: 06-29-2023 End: 06-29-2023 Comprehensive metabolic panel David rowland DO Work Phone: Start: 06-18-2023 Electrocardiogram JAQUAN CRISTHIAN Start: 05-30-2023 Computed tomography of abdomen and pelvis with contrast BLEACH MACHINE OPERATOR-C Jaquan Morrow Work Phone: Start: 05-30-2023 Urine culture BLEACH MACHINE OPERATOR-C Jaquan Cristhian Work Phone: Start: 05-25-2023 Esophagoscp rig transoral hypopharynx crv rene Rajni Rouse Start: 05-20-2023 Esophagoscp rig transoral hypopharynx crv rene Rajni Rouse Start: 05-12-2023 Esophagogastroduodenoscopy [facility] P[facility] Start: 04-06-2023 Computed tomography of abdomen and pelvis with contrast BLEACH MACHINE OPERATOR-C Jaquan Morrow Work Phone: Start: 03-20-2023 DISCHARGE PATIENT WOMERARY MAGAÑA Start: 03-19-2023 DISCHARGE PATIENT [facility] [employer] Start: 03-19-2023 Esophagogastroduodenoscopy [facility] [employer] Start: 03-19-2023 SURGICAL PATHOLOGY EXAM [facility] Start: 03-19-2023 Egd transoral biopsy single/multiple Deepika A Primdrew PERIOPERATIVE ASSISTANT-FIRE CONTROL ASSISTANT Work Phone: Start: 03-19-2023 CBC panel - Blood by Automated count [employer] Start: 03-19-2023 Comprehensive metabolic 2000 panel - Serum or Plasma [employer] Start: 03-19-2023 Comprehensive metabolic panel Tiffanie Cruz all PERIOPERATIVE ASSISTANT-FIRE CONTROL ASSISTANT Work Phone: Start: 03-18-2023 CBC panel - Blood by Automated count [employer] Start: 03-18-2023 Comprehensive metabolic 2000 panel - Serum or Plasma [facility] Start: 03-18-2023 Comprehensive metabolic panel Tiffanie Cruz all PERIOPERATIVE ASSISTANT-FIRE CONTROL ASSISTANT Work Phone: Start: 03-17-2023 XR CHEST 1 VIEW [facility] [employer] Start: 03-17-2023 Radiologic exam chest single view Tiffanie Mendez PERIOPERATIVE ASSISTANT-FIRE CONTROL ASSISTANT Work Phone: Start: 03-17-2023 FL UPPER GI W DOUBLE CONTRAST W SMALL BOWEL FOLLOW THROUGH [facility] Start: 03-17-2023 Radiologic exam upr gi trc double contrast study Tiffanie Mendez PERIOPERATIVE ASSISTANT-FIRE CONTROL ASSISTANT Work Phone: Start: 03-17-2023 XR CHEST 1 VIEW [employer] Start: 03-17-2023 Radiologic exam chest single view Tiffanie Mendez PERIOPERATIVE ASSISTANT-FIRE CONTROL ASSISTANT Work Phone: Start: 03-17-2023 CBC panel - Blood by Automated count [employer] Start: 03-17-2023 Comprehensive metabolic 2000 panel - Serum or Plasma [employer] Start: 03-17-2023 ECG 12-LEAD [employer] Start: 03-17-2023 Comprehensive metabolic panel Tiffanie Cruz all PERIOPERATIVE ASSISTANT-FIRE CONTROL ASSISTANT Work Phone: Start: 03-16-2023 CT ABDOMEN PELVIS W IV CONTRAST [facility] Jonh BRAY Start: 03-16-2023 Ct abdomen & pelvis w/contrast material Tiffanie Mendez PERIOPERATIVE ASSISTANT-FIRE CONTROL ASSISTANT Work Phone: Start: 03-16-2023 ED TO FLOOR BED REQUEST [facility] Start: 03-16-2023 PULSE OXIMETRY, CONTINUOUS [employer] Start: 03-16-2023 TELEMETRY MONITORING [facility] Start: 03-16-2023 MEASURE HEIGHT [facility] Start: 03-16-2023 ORTHOSTATIC BLOOD PRESSURE [facility] Start: 03-16-2023 WEIGH PATIENT [employer] Start: 03-16-2023 ADMIT TO INPATIENT [employer] Start: 03-16-2023 CBC W Auto Differential panel - Blood [employer] Start: 03-16-2023 Comprehensive metabolic 2000 panel - Serum or Plasma [employer] Start: 03-16-2023 SARS-COV-2 AND INFLUENZA A/B PCR [facility] Start: 03-16-2023 PULSE OXIMETRY, CONTINUOUS Tiffanie Mendez PERIOPERATIVE ASSISTANT-FIRE CONTROL ASSISTANT Work Phone: Start: 03-16-2023 Comprehensive metabolic panel Melisa lipscomb MD Work Phone: Start: 03-16-2023 Influenza virus A and B and SARS-CoV-2 (COVID-19) identified in Respiratory specimen by HANK with probe detection Melisa Barker MD Work Phone: Start: 03-10-2023 [facility]CHAR[facility]IENT [facility] Start: 03-10-2023 DISCHARGE INSTRUCTIONS [facility] Start: 03-10-2023 Glucose [Mass/volume] in Serum or Plasma [facility] Start: 03-10-2023 Glucose quantitative blood xcpt reagent strip Dolores Cox MD Work Phone: Start: 03-10-2023 Glucose [Mass/volume] in Serum or Plasma [facility] Start: 03-10-2023 Glucose quantitative blood xcpt reagent strip Dolores Cox MD Work Phone: Start: 03-10-2023 Basic metabolic 2000 panel - Serum or Plasma [facility] Start: 03-10-2023 CBC panel - Blood by Automated count [facility] Start: 03-10-2023 Glucose [Mass/volume] in Serum or Plasma [facility] Start: 03-10-2023 End: 03-10-2023 Basic metabolic panel calcium total Alicia Toro PERIOPERATIVE ASSISTANT-FIRE CONTROL ASSISTANT Work Phone: Start: 03-10-2023 POCT GLUCOSE METER [facility] Start: 03-10-2023 Glucose [Mass/volume] in Serum or Plasma [facility] Start: 03-10-2023 Glucose quantitative blood xcpt reagent strip Dolores Cox MD Work Phone: Start: 03-09-2023 Glucose [Mass/volume] in Serum or Plasma [facility] Start: 03-09-2023 Glucose quantitative blood xcpt reagent strip Dolores Cox MD Work Phone: Start: 03-09-2023 Glucose [Mass/volume] in Serum or Plasma [facility] Start: 03-09-2023 Glucose quantitative blood xcpt reagent strip Dolores Cox MD Work Phone: Start: 03-09-2023 C. DIFFICILE, PCR [facility] Start: 03-09-2023 STOOL PATHOGEN PANEL, PCR [facility] Start: 03-09-2023 Glucose [Mass/volume] in Serum or Plasma [facility] Start: 03-09-2023 Iadna-dna/rna gi pthgn multiplex probe tq 6-11 Alicia Toro PERIOPERATIVE ASSISTANT-FIRE CONTROL ASSISTANT Work Phone: Start: 03-09-2023 Inf agent det nucleic acid clostridium amp probe Alicia Toro PERIOPERATIVE ASSISTANT-FIRE CONTROL ASSISTANT Work Phone: Start: 03-09-2023 IP CONSULT TO NUTRITION SERVICES [facility] Start: 03-09-2023 Glucose quantitative blood xcpt reagent strip Dolores Cox MD Work Phone: Start: 03-09-2023 Glucose [Mass/volume] in Serum or Plasma [facility] Start: 03-09-2023 ECG 12-LEAD [facility] Start: 03-09-2023 Basic metabolic 2000 panel - Serum or Plasma [facility] Start: 03-09-2023 CBC panel - Blood by Automated count [facility] Start: 03-09-2023 Glucose quantitative blood xcpt reagent strip Dolores Cox MD Work Phone: Start: 03-09-2023 Glucose [Mass/volume] in Serum or Plasma [facility] Start: 03-09-2023 Basic metabolic panel calcium total Alicia Toro PERIOPERATIVE ASSISTANT-FIRE CONTROL ASSISTANT Work Phone: Start: 03-09-2023 Glucose [Mass/volume] in Serum or Plasma [facility] Start: 03-09-2023 Glucose quantitative blood xcpt reagent strip Dolores Cox MD Work Phone: Start: 03-09-2023 Glucose quantitative blood xcpt reagent strip Dolores Cox MD Work Phone: Start: 03-09-2023 POCT GLUCOSE METER [facility] Start: 03-09-2023 Glucose [Mass/volume] in Serum or Plasma [facility] Start: 03-08-2023 Glucose quantitative blood xcpt reagent strip Dolores Cox MD Work Phone: Start: 03-08-2023 Glucose [Mass/volume] in Serum or [facility] Start: 03-08-2023 Glucose quantitative blood xcpt reagent strip Dolores Cox MD Work Phone: Start: 03-08-2023 Glucose [Mass/volume] in Serum or Plasma [facility] Start: 03-08-2023 Glucose quantitative blood xcpt reagent strip Dolores Cox MD Work Phone: Start: 03-08-2023 ECG 12-[facility]AD [facility] Start: 03-08-2023 Glucose [Mass/volume] in Serum or Plasma [facility] Start: 03-08-2023 Glucose quantitative blood xcpt reagent strip Dolores Cox MD Work Phone: Start: 03-08-2023 Basic metabolic 2000 panel - Serum or Plasma [facility] Start: 03-08-2023 CBC panel - Blood by Automated count [facility] Start: 03-08-2023 Glucose [Mass/volume] in Serum or Plasma [facility] Start: 03-08-2023 End: 03-08-2023 Basic metabolic panel calcium total Chrissy Harris PA-C Work Phone: Start: 03-08-2023 INSERT URETHRAL CATHETER [facility] Start: 03-08-2023 POCT GLUCOSE METER [facility] Start: 03-08-2023 Glucose [Mass/volume] in Serum or Plasma [facility] Start: 03-08-2023 Glucose quantitative blood xcpt reagent strip Karma Sharpe MD Work Phone: Start: 03-07-2023 Glucose [Mass/volume] in Serum or Plasma [facility] Start: 03-07-2023 Glucose quantitative blood xcpt reagent strip Karma Sharpe MD Work Phone: Start: 03-07-2023 Glucose [Mass/volume] in Serum or Plasma [facility] Start: 03-07-2023 Glucose quantitative blood xcpt reagent strip Karma Sharpe MD Work Phone: Start: 03-07-2023 Glucose [Mass/volume] in Serum or Plasma [facility] Start: 03-07-2023 Glucose quantitative blood xcpt reagent strip Karma Sharpe MD Work Phone: Start: 03-07-2023 Glucose [Mass/volume] in Serum or Plasma [facility] Start: 03-07-2023 Glucose quantitative blood xcpt reagent strip Karma Sharpe MD Work Phone: Start: 03-07-2023 Basic metabolic 2000 panel - Serum or Plasma [facility] Start: 03-07-2023 CBC panel - Blood by Automated count [facility] Start: 03-07-2023 Glucose [Mass/volume] in Serum or Plasma [facility] Start: 03-07-2023 Basic metabolic panel calcium total Chrissy Harris PA-C Work Phone: Start: 03-07-2023 RESPIRATORY CARE EVALUATION ONLY [facility] Start: 03-07-2023 Glucose quantitative blood xcpt reagent strip Karma Sharpe MD Work Phone: Start: 03-07-2023 POCT GLUCOSE METER [facility] Start: 03-07-2023 RESPIRATORY CARE EVALUATION ONLY Karma siegel MD Work Phone: Start: 03-07-2023 Glucose [Mass/volume] in Serum or Plasma [facility] Start: 03-06-2023 Glucose quantitative blood xcpt reagent strip Karma Sharpe MD Work Phone: Start: 03-06-2023 Glucose [Mass/volume] in Serum or Plasma [facility] Start: 03-06-2023 TELEMETRY MONITORING [facility] Start: 03-06-2023 Glucose quantitative blood xcpt reagent strip Karma Sharpe MD Work Phone: Start: 03-06-2023 TRANSFER PATIENT TO NEW UNIT [facility] Start: 03-06-2023 Glucose [Mass/volume] in Serum or Plasma [facility] Start: 03-06-2023 Glucose quantitative blood xcpt reagent strip Karma Sharpe MD Work Phone: Start: 03-06-2023 Glucose [Mass/volume] in Serum or Plasma [facility] Start: 03-06-2023 Glucose quantitative blood xcpt reagent strip Corie Head MD Work Phone: Start: 03-06-2023 Glucose [Mass/volume] in Serum or Plasma [facility] Start: 03-06-2023 XR CHEST 1 VIEW [facility] Start: 03-06-2023 Glucose quantitative blood xcpt reagent strip Corie Head MD Work Phone: Start: 03-06-2023 Radiologic exam chest single view Shona Foster PERIOPERATIVE ASSISTANT-FIRE CONTROL ASSISTANT Work Phone: Start: 03-06-2023 Basic metabolic 2000 panel - Serum or Plasma [facility] Start: 03-06-2023 CBC panel - Blood by Automated count [facility] Start: 03-06-2023 Magnesium [Mass/volume] in Serum or Plasma [facility] Start: 03-06-2023 Phosphate [Mass/volume] in Serum or Plasma [facility] Start: 03-06-2023 Glucose [Mass/volume] in Serum or Plasma [facility] Start: 03-06-2023 Basic metabolic panel calcium total Chrissy Harris PA-C Work Phone: Start: 03-06-2023 Glucose quantitative blood xcpt reagent strip Corie Head MD Work Phone: Start: 03-06-2023 POCT GLUCOSE METER [facility] Start: 03-06-2023 PT EVAL AND TREAT [facility] Start: 03-06-2023 Glucose [Mass/volume] in Serum or Plasma [facility] Start: 03-05-2023 Glucose quantitative blood xcpt reagent strip Corie Head MD Work Phone: Start: 03-05-2023 Glucose [Mass/volume] in Serum or Plasma [facility] Start: 03-05-2023 Glucose quantitative blood xcpt reagent strip Corie Head MD Work Phone: Start: 03-05-2023 Glucose [Mass/volume] in Serum or Plasma [facility] Start: 03-05-2023 Basic metabolic 2000 panel - Serum or Plasma [facility] Start: 03-05-2023 CBC panel - Blood by Automated count [facility] Start: 03-05-2023 Magnesium [Mass/volume] in Serum or Plasma [facility] Start: 03-05-2023 Phosphate [Mass/volume] in Serum or Plasma [facility] Start: 03-05-2023 XR CHEST 1 VIEW [facility] Start: 03-05-2023 POCT GLUCOSE METER [facility] Start: 03-05-2023 MEASURE HEIGHT [facility] Start: 03-05-2023 WEIGH PATIENT [facility] Start: 03-05-2023 FULL CODE [facility] Start: 03-05-2023 Glucose quantitative blood xcpt reagent strip Corie Head MD Work Phone: Start: 03-05-2023 [facility] Start: 03-05-2023 TRANSFER PATIENT TO NEW UNIT [facility] Start: 03-05-2023 Basic metabolic panel calcium total Desmond Tirado PA-C Work Phone: Start: 03-05-2023 Radiologic exam chest single view Desmond Tirado PA-C Work Phone: Start: 03-05-2023 PULSE OXIMETRY, CONTINUOUS [facility] Start: 03-05-2023 SURGICAL [facility]OLOGY [facility]AM [facility] Start: 03-05-2023 PULSE OXIMETRY, CONTINUOUS Serena George DO Work Phone: Start: 03-05-2023 Level iii surg pathology gross&microscopic exam Sherry Magaña MD Work Phone: Start: 03-05-2023 End: 03-05-2023 Unlisted px abdomen musculoskeletal system Sherry Magaña MD Work Phone: Start: 03-05-2023 VERAB/VERIFY ABORH [facility] Start: 03-05-2023 XR CHEST 1 VIEW [facility] Start: 03-05-2023 DONY/VERIFY SHAYY Magaña MD Work Phone: Start: 03-05-2023 Radiologic exam chest single view Edmund George DO Work Phone: Start: 03-02-2023 Basic metabolic 2000 panel - Serum or Plasma NO GENERIC PROVIDER Start: 03-02-2023 TYPE AND SCREEN NO GENERIC PROVIDER Start: 03-02-2023 STAPHYLOCOCCUS AUREUS/MRSA COLONIZATION, CULTURE [facility] Start: 02-13-2023 Computed tomography of abdomen and [...] GENERIC PROVIDER Start: 01-14-2023 ECG 12-LEAD [facility] Start: 01-14-2023 VASC US MESENTERIC ARTERY DUPLEX COMPLETE [facility] Start: 01-14-2023 Follow-up visit Follow-up SHERRY MAGAÑA Start: 01-13-2023 HCG, URINE, QUALITATIVE [facility] Start: 01-13-2023 URINALYSIS WITH REFLEX MICROSCOPIC [facility] Start: 01-13-2023 CBC W Auto Differential panel - Blood [facility] Start: 01-13-2023 Comprehensive metabolic 2000 panel - Serum or [facility] Start: 11-26-2022 Dup-scan artl tiara abdl/pel/scrot&/rpr orgn com Deacon Kat MD Work Phone: Start: 11-11-2022 Antibody screen JAQUAN MORROW Comment on above: Order Comment: Specimen Type: BLOOD SPEC IMENOrdering Facility: [facility] Address: [address] [place] [address] [place] [address] Performed By: #### T SCR ####[facility] [id number] [place] [address] [place] Start: 11-11-2022 Ercp dx collection specimen brushing/washing Jaquan Morrow Start: 11-11-2022 Laps abd prtm&omentum dx w/wo spec br/wa spx Jaquan Morrow Start: 11-04-2022 Us abdominal real time w/image limited Decaon Kat MD Work Phone: Start: 11-02-2022 Urinalysis, [...] History of Tan-en-Y gastric bypass Breanna Stern PERIOPERATIVE ASSISTANT.FIRE CONTROL ASSISTANT Work Phone: Start: 03-06-2022 Esophagoscp rig transoral hypopharynx crv esoph Breanna Stern PERIOPERATIVE ASSISTANT.FIRE CONTROL ASSISTANT Work Phone: Start: 01-29-2022 Revision - value [...] Blood typing serologic abo Juanito Valles Gustavo GONZALEZC Work Phone: Start: 07-02-2020 Complete blood count with white cell differential, automated Juanito Hai Sisi QUIROZ Work Phone: Start: 07-02-2020 Comprehensive metabolic panel Juanito Valles Ofelia GONZALEZC Work Phone: Start: 07-02-2020 Ct abdomen & pelvis w/o contrast material Juanito Hai Sisi QUIROZ Work Phone: Start: 07-02-2020 Gonadotropin chorionic qualitative [...] Rouse H/O: surgery S/P gastric surgery Nahed A Dashawn RD Work Phone: H/O: surgery Status post [...] Zoster Vaccines (1 of 2) [facility] Start: 09-21-2026 DTaP/Tdap/Td vaccine (2 - Td or Tdap) DTaP/Tdap/Td vaccine (2 - Td or Tdap) [facility] Start: 09-21-2026 DTaP/Tdap/Td Vaccines (2 - Td or Tdap) DTaP/Tdap/Td Vaccines (2 - Td or Tdap) [facility] Start: 09-21-2026 Tetanus vaccination [facility] Start: 09-21-2026 Urine microalbumin profile [facility] Start: 08-08-2024 BP Controlled (<130/80) BP Controlled (<130/80) [facility] Start: 07-02-2024 Diabetes mellitus screening Diabetes Screening [facility] Start: 04-27-2024 BP Controlled (<130/80) BP Controlled (<130/80) [facility] Start: 03-10-2024 Diabetes mellitus screening Diabetes Screening [facility] Start: 01-21-2024 End: 01-21-2024 Patient encounter procedure 01/21/2024 4:40 PM EST Office Visit Dermatology [address] [address] Samara Evans MD [address] [place] [address] new tiny black spots on hand & arm Dermatology Comment on above: new tiny black spots on hand & arm Start: 12-05-2023 BP Controlled (<130/80) BP Controlled (<130/80) [facility] Start: 11-27-2023 BP Controlled (<130/80) BP Controlled (<130/80) [facility] in Start: 11-17-2023 End: 11-17-2023 Patient encounter procedure 11/17/2023 10:20 AM EDT Office Visit Gastroenterology [address] [address] Kasie Avalos MD [address] [place] [address] FOLLOW UP Gastroenterology Comment on above: FOLLOW UP Start: 11-08-2023 End: 11-08-2023 Admission to same day surgery center 11/08/2023 1:00 PM EDT [facility] [address] [place] [address] [place] [address] [place] [address] post op one month/ dx lap 10/07/2023 General Surgery Comment on above: post op one month/ dx lap 10/07/2023 Start: 11-01-2023 End: 11-01-2023 Patient encounter procedure 11/01/2023 8:00 AM EDT Appointment Gastroenterology [address] [address] Chichi Miller MD [address] [place] [address] Multiple gastric ulcers [K25.9] Gastroenterology Comment on above: Multiple gastric ulcers [K25.9] Start: 10-27-2023 Thyroid stimulating hormone measurement TSH Level [facility] Start: 10-21-2023 End: 10-21-2023 Patient encounter procedure 10/21/2023 2:00 PM EDT Office Visit Allergy [address] [place] [address] Sara Velasquez MD [address] [id number] Facial swelling [R22.0] Allergy Comment on above: Facial swelling [R22.0] Start: 10-20-2023 End: 10-20-2023 Admission to same day surgery center 10/20/2023 2:45 PM EDT - 10/20/2023 4:45 PM EDT Surgery [facility] Operating Room [address] [place] [address] Deacon Kat [place] [id number] [place] [address] LAPAROSCOPY DIAGNOSTIC [facility] Comment on above: LAPAROSCOPY DIAGNOSTIC Start: 10-20-2023 End: 10-20-2023 Laps abd prtm&omentum dx w/wo spec br/wa spx [facility] Chronic abdominal pain History of gastric bypass Pre-op testing 10/20/2023 2:45 PM EDT [facility] Start: 10-20-2023 Subsequent hospital visit by physician 10/20/2023 2:45 PM EDT Hospital Encounter [facility] [address] [place] [address] Deacon Kat MD [address] [place] [address] Chronic abdominal pain [R10.9, G89.29], History of gastric bypass [Z98.84], Pre-op testing [Z01.818] [facility] Comment on above: Chronic abdominal pain [R10.9, G89.29], History of gastric bypass [Z98.84], Pre-op testing [Z01.818] Start: 10-20-2023 End: 10-20-2023 Patient encounter procedure 10/20/2023 8:20 AM EDT Office Visit General Surgery [address] [address] Breanna Stern APRN.FIRE CONTROL ASSISTANT [address] [place], [place] [id number] post op 2-3 wks/ dx lap 10/07/2023 General Surgery Comment on above: post op 2-3 wks/ dx lap 10/07/2023 Start: 10-17-2023 Influenza [facility] Start: 10-13-2023 End: 10-13-2023 Patient encounter procedure Gastroenterology Comment on above: cgrt page [id number] Start: 10-13-2023 End: 10-13-2023 ambulatory 10/13/2023 12:00 PM EDT Education Gastroenterology [address] [id number] Dietitian, Cgrt [address] [place] [address] rt page [id number] Gastroenterology Comment on above: cgrt page [id number] Start: 10-07-2023 End: 10-07-2023 Admission to same day surgery center 10/07/2023 7:30 AM EDT - 10/07/2023 9:15 AM EDT Surgery [facility] [address] [place] [address] Deacon Kat MD [id number] [place] [address] LAPAROSCOPY DIAGNOSTIC [facility] Comment on above: LAPAROSCOPY DIAGNOSTIC Start: 10-07-2023 End: 10-07-2023 Anesthesia consultation 10/07/2023 7:30 AM EDT Anesthesia Event [facility] Room [address] [place], [place] [id number] Nathalie Preciado APRN.BARIATRIC NURSE [address] [phone] [facility] Start: 10-07-2023 End: 10-07-2023 Laps abd prtm&omentum dx w/wo spec br/wa spx [facility] Chronic abdominal pain History of gastric bypass Pre-op testing 10/07/2023 7:30 AM EDT [facility] Start: 10-07-2023 Subsequent hospital visit by physician 10/07/2023 7:30 AM EDT Hospital Encounter [facility] Operating Room [address] [place], [place] [id number] [place] [address] [place] [address] Chronic abdominal pain [R10.9, G89.29], History of gastric bypass [Z98.84], Pre-op testing [Z01.818] [facility] Operating Room Comment on above: Chronic abdominal pain [R10.9, G89.29], History of gastric bypass [Z98.84], Pre-op testing [Z01.818] Start: 10-06-2023 End: 10-06-2023 Anesthesia consultation 10/06/2023 3:40 PM EDT PAT Pre Anesthesia [address] [place] [address] PACC//preop//lap diagnostic//Gutnick// Pre Anesthesia Comment on above: PACC//preop//lap diagnostic//Gutnick// Start: 09-30-2023 End: 09-30-2023 Patient encounter procedure 09/30/2023 2:00 PM EDT Office Visit Allergy [address] [place] [address] Sara Velasquez MD [address] [place] [address] Facial swelling [R22.0] Allergy Comment on above: Facial swelling [R22.0] Start: 09-27-2023 End: 09-27-2023 Patient encounter procedure 09/27/2023 3:00 PM EDT Office [place] [address] surgical reg//preop//lap diagnostic//Gutnick// [employer] [facility] Comment on above: surgical reg//preop//lap diagnostic//Gut leandro//10/20/2023 Start: 09-22-2023 End: 09-22-2023 Patient encounter procedure 09/22/2023 9:40 AM EDT Office Visit Dermatology [address] [address] Samara Evans MD [address] [place] [address] new tiny black spots on hand & arm Dermatology Comment on above: new tiny black spots on hand & arm Start: 09-09-2023 End: 09-09-2023 Patient encounter procedure 09/09/2023 2:00 PM EDT Office Visit Allergy [address] [place] [id number] Sara Velasquez MD [address] [place] [address] Facial swelling [R22.0] Allergy Comment on above: Facial swelling [R22.0] Start: 09-08-2023 End: 09-08-2023 Patient encounter procedure 09/08/2023 10:40 AM EDT Office Visit Gastroenterology [address] [address] Kasie Avalos MD [address] [place] [address] 3 month f/u Gastroenterology Comment on above: 3 month f/u Start: 09-03-2023 End: 09-03-2023 Patient encounter procedure 09/03/2023 12:45 PM EDT Office Visit Pulmonary Medicine [address] [place] [address] Alan Jurado MD [address] [place] [address] Follow-up of left lower lobe pneumonia Pulmonary Medicine Comment on above: Follow-up of left lower lobe pneumonia Start: 08-30-2023 End: 08-30-2023 Nursing evaluation of patient and report Gastroenterology Comment on above: Gastroesophageal reflux disease, unspeci fied whether esophagitis present [K21.9] Start: 08-26-2023 End: 08-26-2023 Nursing evaluation of patient and report 08/26/2023 3:00 PM EDT Nurse Visit Gastroenterology [address] [address] 2, Nurse Gi Lab [address] [place] [address] Gastroesophageal reflux disease, unspecified whether esophagitis present [K21.9] Gastroenterology Comment on above: Gastroesophageal reflux disease, unspeci fied whether esophagitis present [K21.9] Start: 08-26-2023 End: 08-26-2023 Patient encounter procedure 08/26/2023 3:00 PM EDT Appointment Gastroenterology [address] [place] [address] [place] [address] [place] [address] Gastroesophageal reflux disease, unspecified whether esophagitis present [K21.9] Gastroenterology Comment on above: Gastroesophageal reflux disease, unspeci fied whether esophagitis present [K21.9] Start: 08-09-2023 End: 08-09-2023 Patient encounter procedure 08/09/2023 2:00 PM EDT Office Visit Pain Management [address] [place] [address] Vic Ramos MD [address] [facility] [place] [address] follow up Pain Management Comment on above: follow up Start: 08-09-2023 End: 08-09-2023 Follow-up encounter 08/09/2023 9:00 AM EDT [facility] Neurology [address] [place] [address] Pablo Lebron, ROSALBA [address] [place] [address] follow up Neurology Comment on above: follow up Start: 08-04-2023 End: 08-04-2023 Patient encounter procedure 08/04/2023 9:00 AM EDT Office Visit Pain Management [address] [place] [address] Boogie Murguia MD [address] [place] [address] medication refill (ketamine) Pain Management Comment on above: medication refill (ketamine) Start: 07-28-2023 End: 07-28-2023 Patient encounter procedure 07/28/2023 10:00 AM EDT Office Visit Gastroenterology [address] [address] Kasie Avalos MD [address] [place], [place] [id number] 3 month f/u Gastroenterology Comment on above: 3 month f/u Start: 07-22-2023 End: 07-22-2023 Patient encounter procedure 07/22/2023 9:30 AM EDT Office Visit Colorectal Surgery [address] [place] [id number] La Montes De Oca, SLIM.FIRE CONTROL ASSISTANT [address] [place], [place] [id number] Constipation, unspecified constipation type [K59.00] Colorectal Surgery Comment on above: Constipation, unspecified constipation t ype [K59.00] Start: 07-22-2023 End: 07-22-2023 Admission to same day surgery center 07/22/2023 9:00 AM EDT Procedure Colorectal Surgery [address] [address] La Montes De Oca, SLIM.FIRE CONTROL ASSISTANT [address] [place] [address] Constipation, unspecified constipation type [K59.00] Colorectal Surgery Comment on above: Constipation, unspecified constipation t ype [K59.00] Start: 07-22-2023 End: 07-22-2023 Nursing evaluation of patient and report 07/22/2023 8:00 AM EDT Nurse Visit Gastroenterology [address] [place] [id number] Lab, Nurse Gi I [address] [place] [address] Gastroesophageal reflux disease, unspecified whether esophagitis present [K21.9] Gastroenterology Comment on above: Gastroesophageal reflux disease, unspeci fied whether esophagitis present [K21.9] Start: 07-20-2023 End: 07-20-2023 Professional / ancillary services management 07/20/2023 2:00 PM EDT Ancillary Procedure [facility] [address] [facility] [address] [place] [address] [facility] Start: 07-20-2023 End: 07-20-2023 Nursing evaluation of patient and report 07/20/2023 1:30 PM EDT Nurse Visit Gastroenterology [address] [address] Lab, Nurse Gi I [address] [facility] [place] [address] Gastroesophageal reflux disease, unspecified whether esophagitis present [K21.9] Gastroenterology Comment on above: Gastroesophageal reflux disease, unspeci fied whether esophagitis present [K21.9] Start: 07-20-2023 End: 07-20-2023 Patient encounter procedure Gastroenterology Comment on above: Gastroesophageal reflux disease, unspeci fied whether esophagitis present [K21.9] Start: 07-17-2023 [facility] Start: 07-17-2023 Referral to general surgeon [facility] Start: 07-17-2023 Hospital admission [facility] Start: 07-15-2023 End: 07-15-2023 Patient encounter procedure 07/15/2023 3:15 PM EDT Office Visit Pain Management [address] [facility] [place] [address] Vic Ramos MD [address] [facility] [place] [address] est Pain Management Comment on above: est Start: 07-15-2023 End: 07-15-2023 Patient encounter procedure 07/15/2023 7:30 AM EDT Office Visit Pain Management [address] [place] [address] May Ramey APRN.FIRE CONTROL ASSISTANT [address] [place] [address] Needs medication, unknown who can order Pain Management Comment on above: Needs medication, unknown who can order Start: 07-09-2023 End: 07-09-2023 Follow-up encounter 07/09/2023 9:00 AM EDT [facility] Neurology [address] [place] [address] Pablo Lebron, [facility] [address] [place], [place] [id number] follow up Neurology Comment on above: follow up Start: 07-07-2023 End: 07-07-2023 Patient encounter procedure 07/07/2023 10:30 AM EDT Office Visit Colorectal Surgery [address] [address] Vonda Hercules PA-C [address] [place] [address] Constipation, unspecified constipation type [K59.00] Colorectal Surgery Comment on above: Constipation, unspecified constipation t ype [K59.00] Start: 07-07-2023 End: 07-07-2023 Admission to same day surgery center 07/07/2023 10:00 AM EDT Procedure Colorectal Surgery [address] [address] Vonda Hercules PA-C [address] [place] [address] Constipation, unspecified constipation type [K59.00] Colorectal Surgery Comment on above: Constipation, unspecified constipation t ype [K59.00] Start: 06-23-2023 End: 06-23-2023 Patient encounter procedure 06/23/2023 9:00 AM EDT Office Visit Plastic Surgery [address] [address] Juana Padilla APRN.FIRE CONTROL ASSISTANT [address] [place] [address] CONSULT FOR SKIN REMOVAL WEIGHT LOSS SURGERY PROVIDER LISSET KAT FV 01/2022 @ [facility] Plastic Surgery Comment on above: CONSULT FOR SKIN REMOVAL WEIGHT LOSS RED [place] PROVIDER LISSET KAT FV 01/2022 @ [facility] Start: 06-18-2023 End: 06-18-2023 Follow-up encounter 06/18/2023 4:00 PM EDT [facility] [address] [facility] [place] [address] Vic Ramos MD [address] [facility] [place] [address] Hospital Follow Up chronic pain Pain Management Comment on above: Hospital Follow Up chronic pain Start: 06-18-2023 End: 06-18-2023 Patient encounter procedure 06/18/2023 10:00 AM EDT Office [facility] [address] [facility] [address] [place] [address] Breanna Stern APRN.FIRE CONTROL ASSISTANT [address] [place] [address] Post PEG-J placement General Surgery Comment on above: Post PEG-J placement Start: 06-15-2023 End: 06-15-2023 Patient encounter procedure 06/15/2023 11:00 AM EDT Office Visit General Surgery [address] [facility] [address] [place] [address] Breanna [place] APRN.FIRE CONTROL ASSISTANT [address] [place] [address] Post PEG-J placement General Surgery Comment on above: Post PEG-J placement Start: 06-13-2023 BP CONTROLLED (<130/80) BP CONTROLLED (<130/80) [facility] in Start: 05-30-2023 Bacteria identified in Urine by Culture [facility] Start: 04-12-2023 End: 04-12-2023 Telemedicine consultation with patient 04/12/2023 9:00 AM EST Telemedicine [facility] [address] [facility] [address] [place] [address] [place] [address] [address] [place], [place] [phone] [facility] Start: 11-23-2022 End: 11-24-2023 US MESENTERIC ARTERY CMPLT VAS LAB US MESENTERIC ARTERY CMPLT VAS LAB Vascular Lab TOÑITO Chronic nausea RUQ pain Expected: 11/23/2022, Expires: 11/24/2023 [facility] Work Phone: Comment on above: Expected: 11/23/2022, Expires: Start: 11-18-2022 End: 01-18-2023 25-hydroxyvitamin D3 [Mass/volume] in Serum or Plasma VITAMIN D 25 HYDROXY Lab Routine S/P bariatric surgery Impaired intestinal absorption Expected: 11/18/2022 (Approximate), Expires: 01/18/2023 [facility] Work Phone: Comment on above: Expected: 11/18/2022 (Approximate), Expi res: 01/18/2023 Start: 11-18-2022 End: 01-18-2023 CBC panel - Blood by Automated count CBC Lab Routine S/P bariatric surgery Impaired intestinal absorption Expected: 11/18/2022 (Approximate), Expires: 01/18/2023 [facility] Work Phone: Comment on above: Expected: 11/18/2022 (Approximate), Expi res: 01/18/2023 Start: 11-18-2022 End: 01-18-2023 Cobalamin (Vitamin B12) [Mass/volume] in Serum or Plasma VITAMIN B12 BLOOD Lab Routine S/P bariatric surgery Impaired intestinal absorption Expected: 11/18/2022 (Approximate), Expires: 01/18/2023 [facility] Work Phone: Comment on above: Expected: 11/18/2022 (Approximate), Expi res: 01/18/2023 Start: 11-18-2022 End: 01-18-2023 Comprehensive metabolic 2000 panel - Serum or Plasma COMP METABOLIC PANEL Lab Routine S/P bariatric surgery Impaired intestinal absorption Expected: 11/18/2022 (Approximate), Expires: 01/18/2023 [facility] Work Phone: Comment on above: Expected: 11/18/2022 (Approximate), Expi res: 01/18/2023 Start: 11-18-2022 End: 01-18-2023 Ferritin [Mass/volume] in Serum or Plasma FERRITIN BLD Lab Routine S/P bariatric surgery Impaired intestinal absorption Expected: 11/18/2022 (Approximate), Expires: 01/18/2023 [facility] Work Phone: Comment on above: Expected: 11/18/2022 (Approximate), Expi res: 01/18/2023 Start: 11-18-2022 End: 01-18-2023 Folate [Mass/volume] in Serum or Plasma FOLATE SERUM Lab Routine S/P bariatric surgery Impaired intestinal absorption Expected: 11/18/2022 (Approximate), Expires: 01/18/2023 [facility] Work Phone: Comment on above: Expected: 11/18/2022 (Approximate), Expi res: 01/18/2023 Start: 11-18-2022 End: 01-18-2023 Iron and Iron binding capacity panel - Serum or Plasma IRON + TIBC Lab Routine S/P bariatric surgery Impaired intestinal absorption Expected: 11/18/2022 (Approximate), Expires: 01/18/2023 [facility] Work Phone: Comment on above: Expected: 11/18/2022 (Approximate), Expi res: 01/18/2023 Start: 11-18-2022 End: 01-18-2023 Parathyrin.intact [Mass/volume] in Serum or Plasma PTH INTACT BLD Lab Routine S/P bariatric surgery Impaired intestinal absorption Expected: 11/18/2022 (Approximate), Expires: 01/18/2023 [facility] Work Phone: Comment on above: Expected: 11/18/2022 (Approximate), Expi res: 01/18/2023 Start: 11-18-2022 End: 01-18-2023 Retinol [Mass/volume] in Serum or Plasma VITAMIN A/RETINOL Lab Routine S/P bariatric surgery Impaired intestinal absorption Expected: 11/18/2022 (Approximate), Expires: 01/18/2023 [facility] Work Phone: Comment on above: Expected: 11/18/2022 (Approximate), Expi res: 01/18/2023 Start: 11-18-2022 End: 01-18-2023 VITAMIN B1 (THIAMINE), WHOLE BLOOD VITAMIN B1 (THIAMINE), WHOLE BLOOD Lab Routine S/P bariatric surgery Impaired intestinal absorption Expected: 11/18/2022 (Approximate), Expires: 01/18/2023 [facility] Work Phone: Comment on above: Expected: 11/18/2022 (Approximate), Expi res: 01/18/2023 Start: 11-18-2022 End: 01-18-2023 Zinc [Mass/volume] in Serum or Plasma ZINC BLD Lab Routine S/P bariatric surgery Impaired intestinal absorption Expected: 11/18/2022 (Approximate), Expires: 01/18/2023 [facility] Work Phone: Comment on above: Expected: 11/18/2022 (Approximate), Expi res: 01/18/2023 Start: 11-04-2022 End: 01-04-2023 Amylase [Enzymatic activity/volume] in Serum or Plasma [facility] Work Phone: Comment on above: Expected: 11/04/2022, Expires: 3 Start: 11-04-2022 End: 01-04-2023 Lipase [Enzymatic activity/volume] in Serum or Plasma [facility] Work Phone: Comment on above: Expected: 11/04/2022, Expires: 3 Start: 10-16-2022 Covid-19 Vaccine ( season) Covid-19 Vaccine () [facility] Start: 10-16-2022 Influenza vaccination [facility] Start: 09-15-2022 Influenza vaccination Flu vaccine (#1) [facility] Start: 07-28-2022 End: 09-27-2022 CBC W Auto Differential panel - Blood CBC + DIFF Lab Routine Rash and nonspecific skin eruption Expected: 07/28/2022, Expires: 09/27/2022 [facility] Work Phone: Comment on above: Expected: 07/28/2022, Expires: 3 Start: 07-28-2022 End: 09-27-2022 Comprehensive metabolic 2000 panel - Serum or Plasma COMP METABOLIC PANEL Lab Routine Rash and nonspecific skin eruption Facial edema Expected: 07/28/2022, Expires: 09/27/2022 [facility] Work Phone: Comment on above: Expected: 07/28/2022, Expires: 3 Start: 06-12-2022 End: 08-12-2022 MISAEL BY IFA WITH REFLEX [facility] Work Phone: Comment on above: Expected: 06/12/2022, Expires: 3 Start: 06-12-2022 End: 08-12-2022 Borrelia burgdorferi IgG and IgM panel - Serum [facility] Work Phone: Comment on above: Expected: 06/12/2022, Expires: 3 Start: 06-12-2022 End: 08-12-2022 Cyclic citrullinated peptide IgG Ab [Units/volume] in Serum or Plasma [facility] Work Phone: Comment on above: Expected: 06/12/2022, Expires: 3 Start: 06-12-2022 End: 08-12-2022 MONOCLONAL PROTEIN, SERUM (BLOOD) [facility] Work Phone: Comment on above: Expected: 06/12/2022, Expires: 3 Start: 06-12-2022 End: 08-12-2022 Niacin [Mass/volume] in Serum or Plasma [facility] Work Phone: Comment on above: Expected: 06/12/2022, Expires: 3 Start: 06-12-2022 End: 08-12-2022 PROTEIN ELECTROPHORESIS SERUM W/INTERP [facility] Work Phone: Comment on above: Expected: 06/12/2022, Expires: 3 Start: 06-12-2022 End: 08-12-2022 Pyridoxine [Mass/volume] in Serum or Plasma [facility] Work Phone: Comment on above: Expected: 06/12/2022, Expires: Start: 06-12-2022 End: 08-12-2022 VITAMIN B1 (THIAMINE), WHOLE BLOOD [facility] Work Phone: Comment on above: Expected: 06/12/2022, Expires: Start: 05-03-2022 End: 07-03-2022 25-hydroxyvitamin D3 [Mass/volume] in Serum or Plasma VITAMIN D 25 HYDROXY Lab Routine S/P gastric bypass Postoperative malabsorption Expected: 05/03/2022 (Approximate), Expires: 07/03/2022 [facility] Work Phone: Comment on above: Expected: 05/03/2022 (Approximate), Expi res: 07/03/2022 Start: 05-03-2022 End: 07-03-2022 CBC panel - Blood by Automated count CBC Lab Routine S/P gastric bypass Postoperative malabsorption Expected: 05/03/2022 (Approximate), Expires: 07/03/2022 [facility] Work Phone: Comment on above: Expected: 05/03/2022 (Approximate), Expi res: 07/03/2022 Start: 05-03-2022 End: 07-03-2022 Cobalamin (Vitamin B12) [Mass/volume] in Serum or Plasma VITAMIN B12 BLOOD Lab Routine S/P gastric bypass Postoperative malabsorption Expected: 05/03/2022 (Approximate), Expires: 07/03/2022 [facility] Work Phone: Comment on above: Expected: 05/03/2022 (Approximate), Expi res: 07/03/2022 Start: 05-03-2022 End: 07-03-2022 Comprehensive metabolic 2000 panel - Serum or Plasma COMP METABOLIC PANEL Lab Routine S/P gastric bypass Postoperative malabsorption Expected: 05/03/2022 (Approximate), Expires: 07/03/2022 [facility] Work Phone: Comment on above: Expected: 05/03/2022 (Approximate), Expi res: 07/03/2022 Start: 05-03-2022 End: 07-03-2022 Ferritin [Mass/volume] in Serum or Plasma FERRITIN BLD Lab Routine S/P gastric bypass Postoperative malabsorption Expected: 05/03/2022 (Approximate), Expires: 07/03/2022 [facility] Work Phone: Comment on above: Expected: 05/03/2022 (Approximate), Expi res: 07/03/2022 Start: 05-03-2022 End: 07-03-2022 Folate [Mass/volume] in Serum or Plasma FOLATE SERUM Lab Routine S/P gastric bypass Postoperative malabsorption Expected: 05/03/2022 (Approximate), Expires: 07/03/2022 [facility] Work Phone: Comment on above: Expected: 05/03/2022 (Approximate), Expi res: 07/03/2022 Start: 05-03-2022 End: 07-03-2022 Iron and Iron binding capacity panel - Serum or Plasma IRON + TIBC Lab Routine S/P gastric bypass Postoperative malabsorption Expected: 05/03/2022 (Approximate), Expires: 07/03/2022 [facility] Work Phone: Comment on above: Expected: 05/03/2022 (Approximate), Expi res: 07/03/2022 Start: 05-03-2022 End: 07-03-2022 Parathyrin.intact [Mass/volume] in Serum or Plasma PTH INTACT BLD Lab Routine S/P gastric bypass Postoperative malabsorption Expected: 05/03/2022 (Approximate), Expires: 07/03/2022 [facility] Work Phone: Comment on above: Expected: 05/03/2022 (Approximate), Expi res: 07/03/2022 Start: 05-03-2022 End: 07-03-2022 Thyrotropin [Units/volume] in Serum or Plasma TSH BLD Lab Routine S/P gastric bypass Postoperative malabsorption Expected: 05/03/2022 (Approximate), Expires: 07/03/2022 [facility] Work Phone: Comment on above: Expected: 05/03/2022 (Approximate), Expi res: 07/03/2022 Start: 05-03-2022 End: 07-03-2022 VITAMIN B1 (THIAMINE), WHOLE BLOOD VITAMIN B1 (THIAMINE), WHOLE BLOOD Lab Routine S/P gastric bypass Postoperative malabsorption Expected: 05/03/2022 (Approximate), Expires: 07/03/2022 [facility] Work Phone: Comment on above: Expected: 05/03/2022 (Approximate), Expi res: 07/03/2022 Start: 12-25-2021 End: 12-17-2022 PH HUERTA INSERT OFF MEDS PH HUERTA INSERT OFF MEDS Endoscopy Routine Regurgitation of food Gastroesophageal reflux disease, unspecified whether esophagitis present Expected: 12/25/2021, Expires: 12/17/2022 [facility] Work Phone: Comment on above: Expected: 12/25/2021, Expires: 3 Start: 10-16-2021 Influenza vaccination [facility] Start: 10-09-2021 End: 12-09-2021 25-hydroxyvitamin D3 [Mass/volume] in Serum or Plasma VITAMIN D 25 HYDROXY Lab Routine S/P laparoscopic sleeve gastrectomy Expected: 10/09/2021, Expires: 12/09/2021 [facility] Work Phone: Comment on above: Expected: 10/09/2021, Expires: 2 Start: 10-09-2021 End: 12-09-2021 Cobalamin (Vitamin B12) [Mass/volume] in Serum or Plasma VITAMIN B12 BLOOD Lab Routine S/P laparoscopic sleeve gastrectomy Expected: 10/09/2021, Expires: 12/09/2021 [facility] Work Phone: Comment on above: Expected: 10/09/2021, Expires: 2 Start: 10-09-2021 End: 12-09-2021 Ferritin [Mass/volume] in Serum or Plasma FERRITIN BLD Lab Routine S/P laparoscopic sleeve gastrectomy Expected: 10/09/2021, Expires: 12/09/2021 [facility] Work Phone: Comment on above: Expected: 10/09/2021, Expires: 2 Start: 10-09-2021 End: 12-09-2021 Folate [Mass/volume] in Serum or Plasma FOLATE SERUM Lab Routine S/P laparoscopic sleeve gastrectomy Expected: 10/09/2021, Expires: 12/09/2021 [facility] Work Phone: Comment on above: Expected: 10/09/2021, Expires: 2 Start: 10-09-2021 End: 12-09-2021 Hemoglobin A1c in Blood HGB A1C Lab Routine S/P laparoscopic sleeve gastrectomy Expected: 10/09/2021, Expires: 12/09/2021 [facility] Work Phone: Comment on above: Expected: 10/09/2021, Expires: 2 Start: 10-09-2021 End: 12-09-2021 Iron and Iron binding capacity panel - Serum or Plasma IRON + TIBC Lab Routine S/P laparoscopic sleeve gastrectomy Expected: 10/09/2021, Expires: 12/09/2021 [facility] Work Phone: Comment on above: Expected: 10/09/2021, Expires: 2 Start: 10-09-2021 End: 12-09-2021 Lipid 1996 panel - Serum or Plasma LIPID PANEL BASIC Lab Routine S/P laparoscopic sleeve gastrectomy Expected: 10/09/2021, Expires: 12/09/2021 [facility] Work Phone: Comment on above: Expected: 10/09/2021, Expires: 2 Start: 10-09-2021 End: 12-09-2021 Parathyrin.intact [Mass/volume] in Serum or Plasma PTH INTACT BLD Lab Routine S/P laparoscopic sleeve gastrectomy Expected: 10/09/2021, Expires: 12/09/2021 [facility] Work Phone: Comment on above: Expected: 10/09/2021, Expires: 2 Start: 10-09-2021 End: 12-09-2021 Thyrotropin [Units/volume] in Serum or Plasma TSH BLD Lab Routine S/P laparoscopic sleeve gastrectomy Expected: 10/09/2021, Expires: 12/09/2021 [facility] Work Phone: Comment on above: Expected: 10/09/2021, Expires: 2 Start: 10-09-2021 End: 12-09-2021 VITAMIN B1 (THIAMINE), WHOLE BLOOD VITAMIN B1 (THIAMINE), WHOLE BLOOD Lab Routine S/P laparoscopic sleeve gastrectomy Expected: 10/09/2021, Expires: 12/09/2021 [facility] Work Phone: Comment on above: Expected: 10/09/2021, Expires: 2 Start: 06-23-2021 End: 06-23-2021 Patient encounter procedure 06/23/2021 Office Visit Sports Medicine Belen Stovall MD [address] [address] Sports Medicine Outpatient Care [facility] Start: 04-15-2021 COVID-19 VACCINE (3 - Booster for Woo series) COVID-19 VACCINE (3 - Booster for Woo series) [facility] Start: 10-16-2020 Influenza vaccination [employer] [facility] Start: 10-17-2019 Influenza vaccination INFLUENZA VACCINE (#1) [facility] Start: 2019 HPV TESTING HPV TESTING [facility] Start: 2019 Screening for malignant neoplasm of cervix [facility] Start: 2010 PAP TESTING PAP TESTING [facility] Start: 2010 Screening for malignant neoplasm of cervix [facility] Start: 2008 DTaP/Tdap/Td vaccine (1 - Tdap) DTaP/Tdap/Td vaccine (1 - Tdap) [email or web address] Work Phone: Start: 2008 Hepatitis A Vaccines (1 of 2 - Risk 2-dose series) Hepatitis A Vaccines (1 of 2 - Risk 2-dose series) [facility] Start: 2008 Hepatitis B Vaccine (1 of 3 - 19+ 3-dose series) Hepatitis B Vaccine (1 of 3 - 19+ 3-dose series) [facility] Start: 2008 Hepatitis B Vaccines (1 of 3 - 19+ 3-dose series) Hepatitis B Vaccines (1 of 3 - 19+ 3-dose series) [facility] Start: 2008 Third diphtheria, tetanus and acellular pertussis (DTaP) vaccination TDAP (ADULT) [facility] Start: 2008 Urine microalbumin profile DTAP,TDAP,TD (1 - Tdap) [facility] Start: 2007 ANNUAL PCP TEAM CHRONIC DISEASE VISIT ANNUAL PCP TEAM CHRONIC DISEASE VISIT [facility] Start: 2007 BP CONTROLLED (<130/80) BP CONTROLLED (<130/80) [facility] Start: 2007 HEPATITIS C SCREENING HEPATITIS C SCREENING [facility] Start: 2007 Hepatitis C screening [facility] Start: 2007 HIV SCREENING HIV SCREENING [facility] Start: 2007 HIV screening HIV Screening [facility] Start: 2007 SPIROMETRY SPIROMETRY [facility] Start: 2007 Tetanus vaccination TETANUS [facility] Start: 2004 HIV screening [facility] Start: 2002 HIV screening HIV SCREENING DISCUSSION [facility] [employer] [facility] Start: 2002 Varicella vaccination Varicella Vaccines (1 of 2 - 13+ 2-dose series) [facility] Start: 2001 COVID-19 VACCINE (1) COVID-19 VACCINE (1) [facility] Start[facility] 2001 Depression Screen Depression Screen [facility] Start: 1995 PNEUMOCOCCAL (1 - PCV) PNEUMOCOCCAL (1 - PCV) [facility] Start: 1995 Pneumococcal vaccination Pneumococcal Vaccine (1 - PCV) [facility] Start: 1995 Pneumococcal Vaccine: Pediatrics (0 to 5 Years) and At-Risk Patients (6 to 64 Years) (1 of 2 - PCV) Pneumococcal Vaccine: Pediatrics (0 to 5 Years) and At-Risk Patients (6 to 64 Years) (1 of 2 - PCV) [facility] Start: 1990 MMR Vaccines (1 of 1 - Standard series) MMR Vaccines (1 of 1 - Standard series) [facility] Start: 1990 Varicella vaccination Varicella Vaccines (1 of 2 - 2-dose childhood series) [facility] Start: 1990 Varicella vaccine (1 of 2 - 2-dose childhood series) Varicella vaccine (1 of 2 - 2-dose childhood series) [facility] Start: 1989 HEPATITIS B (1 of 3 - 3-dose series) HEPATITIS B (1 of 3 - 3-dose series) [facility] Start: 1989 Hepatitis B Vaccine (1 of 3 - 3-dose series) Hepatitis B Vaccine (1 of 3 - 3-dose series) [facility] Start: 1989 Hepatitis B Vaccines (1 of 3 - 3-dose series) Hepatitis B Vaccines (1 of 3 - 3-dose series) [facility] Start: 1989 Hepatitis C antibody, confirmatory test HEPATITIS C VIRUS SCREENING [facility] Start: 1989 Hepatitis C screening [facility] Start: 1989 HIV screening HIV Screening [facility] Start: 1989 Lipid panel Lipid Panel [facility] Start: 1989 Thyroid stimulating hormone measurement TSH [facility] Start: 1989 TSH Qn TSH [facility] Start: 1989 Yearly Adult Physical Yearly Adult Physical [facility] End: 07-23-2023 ADULT [place] [facility] ADULT [place] [facility] Endoscopy Routine Constipation, unspecified constipation type 1 Occurrences starting 07/22/2022 until 07/23/2023 [facility] Work Phone: Comment on above: 1 Occurrences starting 07/22/2022 until 07/23/2023 End: 03-23-2023 Basic metabolic 2000 panel - Serum or Plasma Basic Metabolic Panel Lab Routine Morning draw (Lab) for 3 Occurrences starting 03/21/2023 until 03/23/2023 [facility] Work Phone: Comment on above: Morning draw (Lab) for 3 Occurrences sta rting 03/21/2023 until 03/23/2023 End: 03-12-2023 CBC panel - Blood by Automated count CBC Lab Routine Morning draw (Lab) for 3 Occurrences starting 03/10/2023 until 03/12/2023, 1 completed [facility] Work Phone: Comment on above: Morning draw (Lab) for 3 Occurrences sta rting 03/10/2023 until 03/12/2023, 1 completed End: 03-23-2023 CBC panel - Blood by Automated count CBC Lab Routine Morning draw (Lab) for 3 Occurrences starting 03/21/2023 until 03/23/2023 [facility] Work Phone: Comment on above: Morning draw (Lab) for 3 Occurrences sta rting 03/21/2023 until 03/23/2023 End: 03-16-2023 CBC W Auto Differential panel - Blood CBC and Auto Differential Lab STAT Once (Lab) for 1 Occurrences starting 03/16/2023 until 03/16/2023 [facility] Work Phone: Comment on above: Once (Lab) for 1 Occurrences starting until 03/16/2023 End: 03-16-2023 Comprehensive metabolic 2000 panel - Serum or Plasma Comprehensive metabolic panel Lab STAT STAT (Lab) for 1 Occurrences starting 03/16/2023 until 03/16/2023 [facility] Work Phone: Comment on above: STAT (Lab) for 1 Occurrences starting until 03/16/2023 End: 01-03-2024 Ct angio abd&plvis cntrst mtrl w/wo cntrst img CTA ABD/PEL W IVCON Radiology Routine Generalized abdominal pain 1 Occurrences starting 12/04/2022 until 01/03/2024 [facility] Work Phone: Comment on above: 1 Occurrences starting 12/04/2022 until 01/03/2024 ECG 12 Lead ECG 12 Lead ECG STAT As needed until discontinued starting 06/29/2023 [facility] Work Phone: Comment on above: As needed until discontinued starting ECG 12 Lead ECG 12 Lead ECG STAT 06/29/2023 8:50 PM EDT [facility] Work Phone: End: 01-28-2023 ECG COMPLETE ECG COMPLETE ECG Routine Pre-op evaluation 1 Occurrences starting 01/28/2022 until 01/28/2023 [facility] Work Phone: Comment on above: 1 Occurrences starting 01/28/2022 until 01/28/2023 End: 11-17-2022 EGD - THERAPEUTIC, EUS, OR TUBE INTERVENTIONS EGD - THERAPEUTIC, EUS, OR TUBE INTERVENTIONS Endoscopy Routine Gastroesophageal reflux disease without esophagitis 1 Occurrences starting 11/17/2021 until 11/17/2022 [facility] Work Phone: Comment on above: 1 Occurrences starting 11/17/2021 until 11/17/2022 End: 03-05-2023 EGD - THERAPEUTIC, EUS, OR TUBE INTERVENTIONS EGD - THERAPEUTIC, EUS, OR TUBE INTERVENTIONS Endoscopy Routine Esophageal dysphagia S/P gastric bypass 1 Occurrences starting 03/05/2022 until 03/05/2023 [facility] Work Phone: Comment on above: 1 Occurrences starting 03/05/2022 until 03/05/2023 End: 04-27-2024 EGD - THERAPEUTIC, EUS, OR TUBE INTERVENTIONS EGD - THERAPEUTIC, EUS, OR TUBE INTERVENTIONS Endoscopy Routine Gastroesophageal reflux disease, unspecified whether esophagitis present 1 Occurrences starting 04/28/2023 until 04/27/2024 [facility] Work Phone: Comment on above: 1 Occurrences starting 04/28/2023 until 04/27/2024 End: 10-09-2022 EGD BARIATRIC EGD BARIATRIC Endoscopy Routine Gastroesophageal reflux disease, unspecified whether esophagitis present Bariatric surgery status Class 1 obesity with serious comorbidity and body mass index (BMI) of 31.0 to 31.9 in adult, unspecified obesity type S/P laparoscopic sleeve gastrectomy 1 Occurrences starting 10/09/2021 until 10/09/2022 [facility] Work Phone: Comment on above: 1 Occurrences starting 10/09/2021 until 10/09/2022 End: 10-21-2023 EGD DIAGNOSTIC EGD DIAGNOSTIC Endoscopy Routine Epigastric pain 1 Occurrences starting 10/20/2022 until 10/21/2023 [facility] Work Phone: Comment on above: 1 Occurrences starting 10/20/2022 until 10/21/2023 End: 09-07-2024 EGD DIAGNOSTIC EGD DIAGNOSTIC Endoscopy Routine Multiple gastric ulcers 1 Occurrences starting 09/08/2023 until 09/07/2024 [facility] Work Phone: Comment on above: 1 Occurrences starting 09/08/2023 until 09/07/2024 Electrocardiogram, 12-lead PRN ACS symptoms Electrocardiogram, 12-lead PRN ACS symptoms ECG Routine As needed until discontinued starting 03/05/2023 [facility] Work Phone: Comment on above: As needed until discontinued starting Electrocardiogram, 12-lead PRN ACS symptoms Electrocardiogram, 12-lead PRN ACS symptoms ECG Routine 03/08/2023 10:45 AM EST [facility] Work Phone: Electrocardiogram, 12-lead PRN ACS symptoms Electrocardiogram, 12-lead PRN ACS symptoms ECG Routine As needed until discontinued starting 03/16/2023 [facility] Work Phone: Comment on above: As needed until discontinued starting Glucose [Mass/volume ] in Serum or Plasma POCT Glucose Point of Care Testing - Docked Device Routine Every 4 hours (Lab) until discontinued starting 03/05/2023, 30 completed [facility] Work Phone: Comment on above: Every 4 hours (Lab) until discontinued s tarting 03/05/2023, 30 completed Helicobacter pylori Ag [Presence] in Stool by Immunoassay HELICOBACTER PYLORI ANTIGEN BY EIA, STOOL Microbiology Routine Multiple gastric ulcers Ordered: 09/08/2023 [facility] Comment on above: Ordered: 09/08/2023 End: 12-04-2023 Hepatobil syst imag inc gb w/pharma intervenj NM HEPATOBILIARY W EF AND/OR RX Radiology Routine Nausea RUQ pain History of cholecystectomy 1 Occurrences starting 11/04/2022 until 12/04/2023 [facility] Work Phone: Comment on above: 1 Occurrences starting 11/04/2022 until 12/04/2023 End: 03-18-2023 Incentive spirometry Instruct Incentive spirometry Instruct Respiratory Care Routine Once for 1 Occurrences starting 03/18/2023 until 03/18/2023 [facility] Work Phone: Comment on above: Once for 1 Occurrences starting 03/18/19 until 03/18/2023 Injx anes celiac ple xus w/wo radiologic monitrng DIAG/THER NRV BLK CELIAC PLEXUS Procedures Routine Chronic pain syndrome Ordered: 01/11/2023 [facility] Work Phone: Comment on above: Ordered: 01/11/2023 End: 06-30-2023 Methicillin resistant Staphylococcus aureus [Presence] in Nose by Organism specific culture Staphylococcus Aureus/MRSA Colonization, Culture Microbiology Routine Once (Lab) for 1 Occurrences starting 06/30/2023 until 06/30/2023 [facility] Work Phone: Comment on above: Once (Lab) for 1 Occurrences starting until 06/30/2023 Patient Education [facility] Work Phone: Patient referral [facility] Work Phone: End: 04-27-2024 PH HUERTA INSERT ON MEDS PH HUERTA INSERT ON MEDS Endoscopy Routine Gastroesophageal reflux disease, unspecified whether esophagitis present 1 Occurrences starting 04/28/2023 until 04/27/2024 [facility] Work Phone: Comment on above: 1 Occurrences starting 04/28/2023 until 04/27/2024 End: 11-18-2022 PH IMPEDANCE INSERT OFF MEDS PH IMPEDANCE INSERT OFF MEDS Endoscopy Routine Gastroesophageal reflux disease without esophagitis S/P laparoscopic sleeve gastrectomy 1 Occurrences starting 11/19/2021 until 11/18/2022 [facility] Work Phone: Comment on above: 1 Occurrences starting 11/19/2021 until 11/18/2022 End: 03-05-2023 Pulse oximetry, continuous Pulse oximetry, continuous Respiratory Care Routine Continuous until discontinued starting 03/05/2023 [facility] Work Phone: Comment on above: Continuous until discontinued starting 0 03/05/2023 End: 06-30-2023 Pulse oximetry, continuous Pulse oximetry, continuous Respiratory Care Routine Continuous until discontinued starting 06/30/2023 [facility] Work Phone: Comment on above: Continuous until discontinued starting 0 06/30/2023 End: 10-18-2023 Radiologic exam upr gi trc double contrast study XR UPPER GI ROUTINE DOUBLE CONTRAST/AIR Radiology Routine S/P bariatric surgery Gastroesophageal reflux disease, unspecified whether esophagitis present 1 Occurrences starting 09/18/2022 until 10/18/2023 [facility] Work Phone: Comment on above: 1 Occurrences starting 09/18/2022 until 10/18/2023 SURGICAL PATHOLOGY [facility] Work Phone: Comment on above: Release Upon Ordering for 1 Occurrences starting 12/25/2021, 1 completed Surgical pathology study [facility] Work Phone: Comment on above: Release Upon Ordering for 1 Occurrences starting 03/19/2023, 1 completed End: 03-10-2023 Urethral Catheter Removal Urethral Catheter Removal Procedures Routine Once for 1 Occurrences starting 03/10/2023 until 03/10/2023 [facility] Work Phone: Comment on above: Once for 1 Occurrences starting 03/10/19 until 03/10/2023 End: 07-03-2023 Urethral Catheter Removal Urethral Catheter Removal Procedures Routine Once for 1 Occurrences starting 07/03/2023 until 07/03/2023 [facility] Work Phone: Comment on above: Once for 1 Occurrences starting 07/03/19 until 07/03/2023 End: 12-04-2023 US ABD RIGHT UPPER QUADRANT US ABD RIGHT UPPER QUADRANT Radiology Routine Nausea RUQ pain History of cholecystectomy 1 Occurrences starting 11/04/2022 until 12/04/2023 [facility] Work Phone: Comment on above: 1 Occurrences starting 11/04/2022 until 12/04/2023 US ABD RIGHT UPPER QUADRANT US ABD RIGHT UPPER QUADRANT Radiology Routine Nausea RUQ pain History of cholecystectomy 11/04/2022 11:15 AM EDT [facility] Work Phone: End: 12-04-2023 XR KNEE GENERAL 4V AP BOTH/PA BOTH/LAT/MERC RIGHT XR KNEE GENERAL 4V AP BOTH/PA BOTH/LAT/MERC RIGHT Radiology Routine Right knee pain, unspecified chronicity 1 Occurrences starting 11/04/2022 until 12/04/2023 [facility] Work Phone: Comment on above: 1 Occurrences starting 11/04/2022 until 12/04/2023 [facility] OR [facility] OR [facility] Immunizations Immunization Date Immunization Notes Care Provider [facility] 11-12-2022 influenza, injectabl e, quadrivalent, preservative free Deacon Kat MD Work Phone: [facility] 11-12-2022 influenza virus vaccine, unspecified formulation Deacon Kat MD Work Phone: [facility] 11-16-2021 influenza virus vaccine, unspecified [facility] 02-18-2021 SARS-CoV-2 (COVID-19 ) mRNA BNT-162b2 vax [facility] Comment on above: Result Comment: 2022: TPVALL 01-01-2021 influenza virus vaccine, unspecified formulation [facility] 01-01-2021 influenza, seasonal, injectable Kuldip Yousif MD Work Phone: [facility] 12-25-2020 influenza virus vaccine, unspecified formulation [facility] Jose Ramon [facility] 12-25-2020 influenza, injectabl e, quadrivalent, preservative free Kuldip Yousif MD Work Phone: [facility] 06-23-2020 COVID-19 Vaccine Woo - Documentation Purposes Only Shanna June Other [facility] Comment on above: Result Comment: 2022: TPVAL 11-28-2018 influenza, seasonal, injectable Shanna June Other [facility] 11-28-2018 influenza virus vaccine, unspecified formulation Agustin Gustafson [facility] 09-21-2016 tetanus toxoid, redu lauren diphtheria toxoid, and acellular pertussis vaccine, adsorbed Kuldip Yousif MD Work Phone: [facility] Payers Date Payer Category Payer Unknown [id number] 2023 Self-pay [id number] 2020 Private Health Insurance [id number]. [id number] [facility] UMR CHOICE PLUS [id number] 2020-Present [phone] [address] [address] [place] [address] [facility] [id number]. 7.3.669514.315 2017 Unknown 2017 Unknown [employer] [place] [id number] 2017-Present [id number] 1.2.840.720230.1.13.172.2. 7.3.167417.315 1989 Unknown [id number] 2.16.840.1.177897.3.579.2. 594 1989 Unknown [id number] 2.16.840.1.435386.3.579.2. 594 1989 Unknown [id number] 2.16.840.1.836231.3.579.2. 593 1989 Unknown [id number] 2.16.840.1.304834.3.579.2. 593 1989 Unknown [id number] 2.16.840.1.709196.3.579.2. 593 1989 Unknown [id number] 2.16.840.1.898405.3.579.2. 593 1989 Unknown [id number] 2.16.840.1.180799.3.579.2. 593 1989 Unknown [id number] 2.16.840.1.147471.3.579.2. 593 1989 Unknown [id number] 2.16.840.1.238488.3.579.2. 593 1989 Unknown [id number] 2.16.840.1.932333.3.579.2. 593 1989 Unknown [id number] 2.16.840.1.939707.3.579.2. 593 1989 Unknown [id number] 2.16.840.1.350089.3.579.2. 593 1989 Unknown [id number] 2.16.840.1.261709.3.579.2. 593 1989 Unknown [id number] 2.16.840.1.726675.3.579.2. 593 1989 Unknown [id number] 2.16.840.1.906053.3.579.2. 173 1989 Unknown [id number] 2.16.840.1.372168.3.579.2. 173 1989 Unknown [id number] 2.16.840.1.376174.3.579.2. 173 1989 Unknown [id number] 2.16.840.1.691831.3.579.2. 983 1989 Unknown [id number] 2.16.840.1.631903.3.579.2. 196 1989 Unknown [id number] 2.16.840.1.301418.3.579.2. 182 1989 Unknown [id number] 2.16.840.1.834236.3.579.2. 182 1989 Unknown [id number] 2.16.840.1.471545.3.579.2. 1243 1989 Unknown [id number] 2.16.840.1.257746.3.579.2. 1245 1989 Unknown [id number] 2.16.840.1.850974.3.579.2. 727 1989 Unknown [id number] 2.16.840.1.875147.3.579.2. 727 1989 Unknown [id number] 2.16.840.1.142878.3.579.2. 727 1989 Unknown [id number] 2.16.840.1.772870.3.579.2. 727 1989 Unknown [id number] 2.16.840.1.486743.3.579.2 1989 Unknown [id number] 2.16.840.1.654284.3.579.2 1989 Unknown [id number] 2.16.840.1.385017.3.579.2 1989 Unknown [id number] 2.16.840.1.000033.3.579.2 1989 Unknown [id number] 2.16.840.1.754209.3.579.2 1989 Unknown [id number] 2.16.840.1.113917.3.579. 1989 Unknown [id number] 2.16.840.1.509846.3.579. 1989 Unknown [id number] 2.16.840.1.283935.3.579. 1989 Unknown [id number] 2.16.840.1.298277.3.579.2 1989 Unknown [id number] 2.16.840.1.234318.3.579.2 1989 Unknown [id number] 2.16.840.1.607296.3.579.2 1989 Unknown [id number] 2.16.840.1.202004.3.579.2 1989 Unknown [id number] 2.16.840.1.355292.3.579.2 1989 Unknown [id number] 2.16.840.1.499949.3.579.2 1989 Unknown [id number] 2.16.840.1.581492.3.579.2 1989 Unknown [id number] 2.16.840.1.638137.3.579.2 1989 Unknown [id number] 2.16.840.1.353536.3.579.2 1989 Unknown [id number] 2.16.840.1.180313.3.579.2 1989 Unknown [id number] 2.16.840.1.530399.3.579.2 1989 Unknown [id number] 2.16.840.1.123289.3.579.2 1989 Unknown [id number] 2.16.840.1.174919.3.579.2 1989 Unknown [id number] 2.16.840.1.539799.3.579.2 1989 Unknown [id number] 2.16.840.1.403264.3.579.2 1989 Unknown [id number] 2.16.840.1.359637.3.579.2 1989 Unknown [id number] 2.16.840.1.563041.3.579.2 1989 Unknown [id number] 2.16.840.1.040695.3.579.2 1989 Unknown [id number] 2.16.840.1.483602.3.579.2 1989 Unknown [id number] 2.16.840.1.830617.3.579.2 1989 Unknown [id number] 2.16.840.1.472320.3.579.21243 1989 Unknown [id number] 2.16.840.1.453642.3.579.21243 1989 Unknown [id number] 2.16.840.1.115610.3.579.21243 1989 Unknown [id number] 2.16.840.1.642658.3.579.2. 1244 1989 Unknown [id number] 2.16.840.1.090831.3.579.2. 1243 1989 Unknown [id number] 2.16.840.1.810411.3.579.2. 4 1989 Unknown [id number] 2.16.840.1.329731.3.579.2. 1243 1989 Unknown [id number] 2.16.840.1.326160.3.579.2. 1243 1989 Unknown [id number] 2.16.840.1.736530.3.579.2. 1243 1989 Unknown [id number] 2.16.840.1.725656.3.579.2. 1243 1989 Unknown [id number] 2.16.840.1.425780.3.579.2. 1243 1989 Unknown [id number] 2.16.840.1.393300.3.579.2. 1243 1989 Unknown [id number] 2.16.840.1.709744.3.579.2. 1243 1989 Unknown [id number] 2.16.840.1.839556.3.579.2. 9 1989 Unknown [id number] 2.16.840.1.085827.3.579.2. 1258 1989 Unknown [id number] 2.16.840.1.825557.3.579.2. 1258 1989 Unknown [id number] 2.16.840.1.404322.3.579.2. 1258 1989 Unknown [id number] 2.16.840.1.215977.3.579.2. 1258 1989 Unknown [id number] 2.16.840.1.582851.3.579.2. 9 1959 Unknown [id number] 1.2.840.268523.1.13.239.2. 7.3.281404.315 1959 Unknown [id number] Unknown [id number] 2.16.840.1.841827.3.579.2. 531 Unknown [id number] 2.16.840.1.589638.3.579.2. 531 Unknown [id number] 2.16.840.1.553275.3.579.2. 531 Unknown [id number] 2.16.840.1.833361.3.579.2. 531 Unknown [id number] 2.16.840.1.337340.3.579.2. 531 Unknown [id number] 2.16.840.1.534296.3.579.2. 531 Unknown [id number] 2.16.840.1.299555.3.579.2. 531 Social History Date Type Detail Facility Start: 01-30-2020 End: 01-28-2022 Tobacco smoking status NHIS Never smoker [facility] Start: 01-30-2020 End: 01-28-2022 Tobacco use and exposure Never used [facility] Start: 01-30-2020 End: 11-02-2022 Alcohol intake Current non-drinker of alcohol (finding) [facility] Start: 1990 Sex Assigned At Not on file A [facility] Start: 06-08-2021 End: 06-29-2023 Exposure to SARS-CoV-2 (event) Not sure [facility] Start: 05-06-2021 End: 10-06-2023 Alcohol intake Ex-drinker (finding) [facility] Start: 10-16-2019 End: 06-20-2022 History SDOH Financial 5 [facility] Start: 10-16-2019 End: 06-20-2022 History SDOH Food Worry 1 [facility] Start: 10-16-2019 End: 06-20-2022 History SDOH Transport Med 2 [facility] Start: 10-15-2019 Education 18 [facility] Start: 06-17-2022 End: 09-18-2022 Sex Assigned At [facility] Start: 10-04-2021 End: 01-01-2022 Exposure to SARS-CoV-2 (event) Unable to assess [facility] Tobacco [facility] status [facility] Start: 06-17-2022 End: 09-18-2022 History of Social function [facility] Work Phone: (I/We) worried wheth er (my/our) food would run out before (I/we) got money to buy more. Never true [facility] Work Phone: In the past 12 month s, was there a time when you were not able to pay the mortgage or rent on time? No [facility] Work Phone: Do you belong to any clubs or organizations such as restorationist groups, unions, fraternal or athletic groups, or school groups? Yes [facility] Are you now , , , , never or living with a partner? [facility] How often to you hav e a drink containing alcohol? Never [facility] How hard is it for y ou to pay for the very basics like food, housing, medical care, and heating Somewhat hard [facility] Do you feel stress - tense, restless, nervous, or anxious, or unable to sleep at night because your mind is troubled all the time - these days [OSQ] To some extent [facility] Start: 11-12-2017 Gender identity Identifies as female gender (finding) [facility] How hard is it for y ou to pay for the very basics like food, housing, medical care, and heating Hard [facility] (I/We) worried wheth er (my/our) food would run out before (I/we) got money to buy more. Sometimes true [facility] Start: 1990 Sex Assigned At Female F [facility] How hard is it for y ou to pay for the very basics like food, housing, medical care, and heating Not very hard [facility] Work Phone: Start: 03-02-2023 Sexual orientation Heterosexual (graham rosado) [facility] Work Phone: Tobacco [facility] Comment on above: denies Tobacco smoking status No Smokin g Status Entered [facility] Do you feel stress - tense, restless, nervous, or anxious, or unable to sleep at night because your mind is troubled all the time - these days [OSQ] Rather much [facility] Work Phone: NEGATED: Highlighted row [facility] Procedure Code Equipment Code Equipment Origin al Text Equipment Identifier Dates Fibertak Hip Yoanna f Bunching [place] 1.8mm [id number] Start: 07-10-2021 Fibertak Hip Yoanna f Bunching [place] 1.8mm [id number] Start: 07-10-2021 Fibertak Hip Yoanna f Bunching [place] 1.8mm [id number] Start: 07-10-2021 Fibertak Hip Yoanna f Bunching [place] 1.8mm [id number] Start: 07-10-2021 Membrane, Sepraf ilm, 5 X 6 In - [id number] Start: 03-05-2023 One touch Verio strips for One Touch Verio meter; test 4 times a day [id number] Start: 01-16-2019 End: 03-10-2023 Functional Status Date Assessment Result Facility 07-17-2023 Functional status Patient at Baseline [facility] Work Phone: 05-17-2023 Functional Status N/A [facility] 05-12-2023 Functional Status No [facility] 05-12-2023 Functional Status [facility] 05-11-2023 Functional Status N/A [facility] 05-09-2023 Functional Status N/A [facility] 05-06-2023 Functional Status N/A [facility] 04-02-2023 Functional Status N/A [facility] 03-16-2023 Functional Status N/A [facility] 03-15-2023 Functional Status N/A [facility] 12-31-2022 Functional Status N/A [facility] 10-20-2022 Functional Status N/A [facility] 10-19-2022 Functional Status N/A [facility] 07-29-2022 Functional Status N/A [facility] 06-10-2022 Functional Status N/A [facility] Mental Status Date Assessment Result Facility 07-17-2023 Cognitive function Cognitive Sta tus Patient at Baseline [facility] Work Phone: Clinical Notes 07-09-2019 to 10-08-2023 Telephone Encounter - Serena Neff - 10/08/2023 4:07 PM EDTTelephone Encounter - Serena Neff - 10/08/2023 4:07 PM EDTPatient Elina CarleeDIANE restrepo - 08/26/2023 4:24 PM EDT Note Date & Type Note Facility 10-08-2023 Telephone encounter Note Patient returned phone call. Pain: Location: Abdomen especially around her LLQ/ J tube Severity: 08/24 Frequency: Constant Description: Sharp Medication: Oxycodone (Took last pill this morning), Tylenol Q6, Tramadol (prescribed by PCP), Ice packs Incisions: Clean, Dry, Intact. Steri Strips in place. Intake: Patient drinking liquids and on TPN still. Tried cottage cheese and this caused her increase abdominal pain, so she is sticking with liquids at this time. Ambulation: Patient states she is ambulating without issue, although she is still in pain. Bowel Movement: Patient is having regular bowel movements. Nausea: Patient reports some nausea this morning. Alternating Zofran and Compazine which is helping. Vomiting: Denies. Reports dry heaving which is baseline prior to surgery. Diarrhea: Denies Reminded patient of post op appt. Patient reminded to seek medical attention if they develop chest pain, a sudden onset of shortness of breath or persistent pain in the calf of their legs - BEST TO ALWAYS present to [facility] hospital where you had your surgery No further questions from the patient at this time. Advised [facility] if any problems or questions arise. Serena Neff OPTIMIZATION MANAGER Scenic Designer for Dr. Kat [facility] 10-08-2023 Miscellaneous Notes Patient returned phone call. Pain: Location: Abdomen especially around her LLQ/ J tube Severity: 08/24 Frequency: Constant Description: Sharp Medication: Oxycodone (Took last pill this morning), Tylenol Q6, Tramadol (prescribed by PCP), Ice packs Incisions: Clean, Dry, Intact. Steri Strips in place. Intake: Patient drinking liquids and on TPN still. Tried cottage cheese and this caused her increase abdominal pain, so she is sticking with liquids at this time. Ambulation: Patient states she is ambulating without issue, although she is still in pain. Bowel Movement: Patient is having regular bowel movements. Nausea: Patient reports some nausea this morning. Alternating Zofran and Compazine which is helping. Vomiting: Denies. Reports dry heaving which is baseline prior to surgery. Diarrhea: Denies Reminded patient of post op appt. Patient reminded to seek medical attention if they develop chest pain, a sudden onset of shortness of breath or persistent pain in the calf of their legs - BEST TO ALWAYS present to [facility] hospital where you had your surgery No further questions from the patient at this time. Advised patient to [facility] if any problems or questions arise. Serena Neff RN BSN Scenic Designer for Dr. Kat Phoned patient to see how she was doing after surgery. S/p: Diagnostic Laparoscopy, Enteropexy Around J-Tube. 10/07/2023 No answer. Left VM. Serena Neff RN BSN Scenic Designer for Dr. Kat documented in this encounter [facility] 10-08-2023 Telephone encounter Note Phoned patient to see how she was doing after surgery. S/p: Diagnostic Laparoscopy, Enteropexy Around J-Tube. 10/07/2023 No answer. Left VM. Serena Neff OPTIMIZATION MANAGER Scenic Designer for Dr. Kat [facility] 10-07-2023 Note [facility] 10-06-2023 Instructions Chantal Brown APRN.FIRE CONTROL ASSISTANT - 10/06/2023 4:14 PM EDT PATIENT PREOPERATIVE INSTRUCTIONS Deacon Kat MD has scheduled you for your procedure at this surgery center: [facility]: [phone] --[id number] [address]. Please check in on the 1st floor at registration desk 6. Please read below carefully for your personalized instructions. Dietary Restrictions: - No solid food or liquids after midnight. Medications: Unless instructed differently below, stay on all of your prescription medications until your surgery. Approved medications to take the morning of surgery with a sip of water: levothyroxine (SYNTHROID) , liothyronine (CYTOMEL) , omeprazole (PRILOSEC) , predniSONE (DELTASONE) , topiramate (TOPAMAX) , midodrine (PROAMATINE) - as directed; ALL INHALERS If you start any new medications after [...] not contain aspirin or NSAIDS as needed. Important Reminders: - If you are prescribed inhalers for [...] Procedures: - YOU MUST HAVE A RESPONSIBLE CLIENT SERVICE ASSOCIATE TAKE YOU HOME. A NET C DEVELOPER OR GIN POLE OPERATOR CANNOT BE MADE A RESPONSIBLE CLIENT SERVICE ASSOCIATE. - We recommend that a responsible person stays with you overnight to take care of you. - You cannot stay in a hotel alone after outpatient surgery. You will not be permitted to have your surgery, if you do not have someone to take care of you. Arrival Time for Surgery: - The Surgery [...] soon as possible and regret any inconvenience. If you already have an Advance Directive, please fax a copy to [phone] or email to for it to be added to your chart. If you do not have an Advance Directive, you can find the appropriate form and more information at [email or web address]. We recommend that you complete the Advance Directive form found on the website and bring it with you the day of your surgery. It can be witnessed and scanned into your chart that day. documented in this encounter [facility] 10-06-2023 History and physical note SERVICE DATE: 10/06/2023 SERVICE TIME: 4:30 PM Surgeon: Deacon Kat MD Type of surgery: LAPAROSCOPY DIAGNOSTIC Patient scheduled for surgery on 10/07/2023 Surgery Location: [place] BP 125/84 Pulse 77 Temp 96.7 Resp 17 Ht 5' 5.6 (1.67m) Wt 181 lb 3.5 oz (82.2kg) SpO2 99% LMP 08/19/2020 BMI 29.62 kg/(m^2). CC: Patient presents with: Pre-Op Visit HPI: Abbey Garcia is a 33 year old year old FEMALE with [facility] . Encounter reviewed with patient. She currently denies any pain, fevers/chills, CP, SOB or is in any apparent distress PAST MEDICAL HISTORY No date: Anemia Comment: [...] Use Smoking status: Never Smokeless tobacco: Never Vaping Use Vaping status: Never Used Substance Use Topics Alcohol use: Not Currently Drug use: Never Comment: denies tx for drug/alcohol abuse in the past. predniSONE EC 5 mg Delayed Release Tab Take 15 mg by mouth once daily. omeprazole (PRILOSEC) 40 mg capsule TAKE 1 CAPSULE BY MOUTH TWICE A DAY ondansetron orally disintegrating (ZOFRAN ODT) 8 mg disintegrating tablet Take 1 tablet by mouth every 8 hours as needed for nausea/vomiting. ketamine 5% nasal spray solution (CPD) 0.1 mL/spray. Use as directed. Apply 2 sprays by nose twice per day if tolerated. Added volume to account for dispenser loss. Physician office visit required for subsequent refills. hydrOXYzine HCl (ATARAX) 25 mg tablet TAKE [...] tablet by mouth two times a day. methocarbamol (ROBAXIN) 750 mg tablet Take 750 [...] Take 5 mcg by mouth once daily. naltrexone 1.5 mg capsule (CPD) Take 1 capsule daily at 9 pm. May increase to 2 capsules if no relief after 2 weeks. Do not use calcium as a filler sifter machine preparation. If insomnia or vivid dreams occur, then would take capsule at 9 am. (Patient not taking: Reported on 10/06/2023) midodrine (PROAMITINE) 5 mg tablet Take 1 tablet by mouth every 8 hours. Please do not take this if systolic blood pressure greater than 110. Please discuss with your primary doctor if this needs to be continued especially if low blood pressures persist (Patient not taking: Reported on 10/06/2023) mirabegron (MYRBETRIQ) 25 mg Tb24 Take 1 tablet by mouth once daily. ALLERGIES Allergen Reactions Adhesive Tape-Silic* Intolerance Sensitive to certain adhesive tapes. Redness and itchy. Codeine GI Upset Nsaids (Non-Steroid* Contraindication-Medical Surgical S/p RYGB REVIEW OF SYSTEMS GENERAL: No weight loss, malaise or fevers RESPIRATORY: Negative for cough, hemoptysis, wheezing, COPD, dyspnea or shortness of breath CARDIOVASCULAR: Negative for chest pain, leg swelling, hypertension, CHF or palpitations PHYSICAL EXAMINATION: Alert and oriented, No acute distress, Healthy appearance Lungs clear to auscultation. No wheezing, rhonchi, rales. RRR without murmur, gallop, or rubs. No ectopy BS present, J-tube present Laboratory and Testing: Lab Value Units Date High Low HB 11.9 g/dL 09/18/2023 15.5 11.5 HCT 37.1 % 09/18/2023 46.0 36.0 WBC 5.30 k/uL 09/18/2023 11.00 3.70 PLT 274 k/uL 09/18/2023 400 150 NA 137 mmol/L 09/18/2023 144 136 K 4.0 mmol/L 09/18/2023 5.1 3.7 GLUC 118 mg/dL 09/18/2023 99 74 BUN 9 mg/dL 09/18/2023 21 7 CREAT 0.70 mg/dL 09/18/2023 0.96 0.58 PTSEC No results within date range. INR No results within date range. APTT No results within date range. ALT 38 U/L 09/18/2023 38 7 AST 48 U/L 09/18/2023 35 13 TBILI 0.3 mg/dL 09/18/2023 1.3 0.2 TSH No results within date range. Lab Value Units Date High Low HCGQT No results within date range. UHCG No results within date range. HCG, BODY* No results within date range. Lab Value Units Date High Low ABORHD No results within date range. ABSCREEN No results within date range. Hemoglobin A1C (%) Date Value 11/08/2019 5.1 Recent Results (from the past 8760 hour(s)) ECG COMPLETE Collection Time: 08/07/23 4:57 PM Result Value Ventricular Rate 56 Atrial Rate 56 P-R Interval 152 QRS Duration 88 QT Interval 462 QTC Calculation (Bazett) 445 Calculated P [place] 74 Calculated R [place] 74 Calculated T [place] 51 Impression SINUS BRADYCARDIA OTHERWISE NORMAL ECG 06/30/2023 Mesenteric artery US CONCLUSIONS: Mesenteric: Celiac artery demonstrates no evidence [...] Technically difficult exam due to bowel gas. METS: Walk indoors, such as around the house (1.75 METs) Do light work around the house, such as dusting or washing dishes (2.70 METs) Take care of self; that is eating, dressing, bathing, using the toilet (2.75 METs) Walk a block or two on level ground (2.75 METs) Do moderate work around the house such as vacuuming, sweeping floors, or carrying in groceries (3.50 METs) Climb a flight of stairs or walk up a hill (5.50 METs) Patient denies any chest pain or undue shortness of breath with the above physical activity. ASSESSMENT: Idiopathic hypotension Assessment: Stable with midodrine (PROAMATINE) , follows with PCP. PONV (postoperative nausea and vomiting) Assessment: severe, Hx of aspiration pneumonia from current status Reports scopolamine patch works Anesthesia Considerations NPO p [place] RICHAR on CPAP Assessment: Does not use CPAP Asthma Assessment: Stable with inhalers, follows with PCP. GERD (gastroesophageal reflux disease) Assessment: Managed with med, with OK control On total parenteral nutrition (TPN) Assessment: At night. Aware to Hold after [place] Bariatric surgery status Assessment: Has had 100 lb weight loss efforts supported Jejunostomy tube present (HCC) Assessment: Noted, gives self boluses of water throughout day. Acquired hypothyroidism Assessment: Stable with medications, follows with Endocrinology . Anemia Assessment: iron supplement labs stable,acceptable for surgery Anxiety and depression Assessment: Pt. reports mood is stable with medication Chronic abdominal pain Assessment: Managed with Ketamine nasal spray Pt. will not take on DOS Current use of steroid medication Assessment: Daily prednisone for Hives, Follows with PCP ANESTHESIA FINDINGS: Intubation History: No history of difficult intubation Significant Anesthesia Considerations: Postop nausea/vomiting Severe, Hx of aspiration pneumonia from current status. Reports scopolamine patch works Daily prednisone Airway Exam: General: Normal appearance Mallampati Score is CLASS II ULBT: Class II - Lower incisors can bite the upper lip below the deborah line Neck: Normal appearance and function, Distance from hyoid to mentum during neck extension is at least 3 finger breaths Mouth: Normal tongue size and Mouth opening greater than 2 finger breaths Dentition: Intact 05/25/2023 AIRWAY>EPIC Indications and Patient Condition Indications for airway [...] pre-anesthetic condition of lips and teeth intact. Airway History: No abnormal airway history STOP BANG Score: RICHAR does not use CPAP/BiPAP PLAN This patient is optimally prepared for surgery. CONSULTS: Patient does not require consults for optimization at this time. The Following Tests/Procedures Have Been Initiated: Labs not indicated per PACC protocol, EKG not indicated per [facility] protocol Planned Anesthetic: Per anesthesia choice Instructions Given to Patient: Instructions located in the after visit summary. Patient given verbal and written preop instructions and voices comprehension and compliance. SIGNATURE: Chantal Brown APRN.CNP PATIENT NAME: Abbey Garcia DATE: October 06, 2023 TIME: 3:45 PM [facility] 10-06-2023 History and physical note SERVICE DATE: 10/06/2023 SERVICE TIME: 4:30 PM Surgeon: Deacon Kat MD Type of surgery: LAPAROSCOPY DIAGNOSTIC Patient scheduled for surgery on 10/07/2023 Surgery Location: [place] BP 125/84 Pulse 77 Temp 96.7 Resp 17 Ht 5' 5.6 (1.67m) Wt 181 lb 3.5 oz (82.2kg) SpO2 99% LMP 08/19/2020 BMI 29.62 kg/(m^2). CC: Patient presents with: Pre-Op Visit HPI: Abbey Garcia is a 33 year old year old FEMALE with recent [facility] . Encounter reviewed with patient. She currently denies any pain, fevers/chills, CP, SOB or is in any apparent distress PAST MEDICAL HISTORY No date: Anemia Comment: [...] Use Smoking status: Never Smokeless tobacco: Never Vaping Use Vaping status: Never Used Substance Use Topics Alcohol use: Not Currently Drug use: Never Comment: denies tx for drug/alcohol abuse in the past. predniSONE EC 5 mg Delayed Release Tab Take 15 mg by mouth once daily. omeprazole (PRILOSEC) 40 mg capsule TAKE 1 CAPSULE BY MOUTH TWICE A DAY ondansetron orally disintegrating (ZOFRAN ODT) 8 mg disintegrating tablet Take 1 tablet by mouth every 8 hours as needed for nausea/vomiting. ketamine 5% nasal spray solution (CPD) 0.1 mL/spray. Use as directed. Apply 2 sprays by nose twice per day if tolerated. Added volume to account for dispenser loss. Physician office visit required for subsequent refills. hydrOXYzine HCl (ATARAX) 25 mg tablet TAKE [...] tablet by mouth two times a day. methocarbamol (ROBAXIN) 750 mg tablet Take 750 [...] Take 5 mcg by mouth once daily. naltrexone 1.5 mg capsule (CPD) Take 1 capsule daily at 9 pm. May increase to 2 capsules if no relief after 2 weeks. Do not use calcium as a filler sifter machine preparation. If insomnia or vivid dreams occur, then would take capsule at 9 am. (Patient not taking: Reported on 10/06/2023) midodrine (PROAMITINE) 5 mg tablet Take 1 tablet by mouth every 8 hours. Please do not take this if systolic blood pressure greater than 110. Please discuss with your primary doctor if this needs to be continued especially if low blood pressures persist (Patient not taking: Reported on 10/06/2023) mirabegron (MYRBETRIQ) 25 mg Tb24 Take 1 tablet by mouth once daily. ALLERGIES Allergen Reactions Adhesive Tape-Silic* Intolerance Sensitive to certain adhesive tapes. Redness and itchy. Codeine GI Upset Nsaids (Non-Steroid* Contraindication-Medical Surgical S/p RYGB REVIEW OF SYSTEMS GENERAL: No weight loss, malaise or fevers RESPIRATORY: Negative for cough, hemoptysis, wheezing, COPD, dyspnea or shortness of breath CARDIOVASCULAR: Negative for chest pain, leg swelling, hypertension, CHF or palpitations PHYSICAL EXAMINATION: Alert and oriented, No acute distress, Healthy appearance Lungs clear to auscultation. No wheezing, rhonchi, rales. RRR without murmur, gallop, or rubs. No ectopy BS present, J-tube present Laboratory and Testing: Lab Value Units Date High Low HB 11.9 g/dL 09/18/2023 15.5 11.5 HCT 37.1 % 09/18/2023 46.0 36.0 WBC 5.30 k/uL 09/18/2023 11.00 3.70 PLT 274 k/uL 09/18/2023 400 150 NA 137 mmol/L 09/18/2023 144 136 K 4.0 mmol/L 09/18/2023 5.1 3.7 GLUC 118 mg/dL 09/18/2023 99 74 BUN 9 mg/dL 09/18/2023 21 7 CREAT 0.70 mg/dL 09/18/2023 0.96 0.58 PTSEC No results within date range. INR No results within date range. APTT No results within date range. ALT 38 U/L 09/18/2023 38 7 AST 48 U/L 09/18/2023 35 13 TBILI 0.3 mg/dL 09/18/2023 1.3 0.2 TSH No results within date range. Lab Value Units Date High Low HCGQT No results within date range. UHCG No results within date range. HCG, BODY* No results within date range. Lab Value Units Date High Low ABORHD No results within date range. ABSCREEN No results within date range. Hemoglobin A1C (%) Date Value 11/08/2019 5.1 Recent Results (from the past 8760 hour(s)) ECG COMPLETE Collection Time: 08/07/23 4:57 PM Result Value Ventricular Rate 56 Atrial Rate 56 P-R Interval 152 QRS Duration 88 QT Interval 462 QTC Calculation (Bazett) 445 Calculated P [place] 74 Calculated R [place] 74 Calculated T [place] 51 Impression SINUS BRADYCARDIA OTHERWISE NORMAL ECG 06/30/2023 Mesenteric artery US CONCLUSIONS: Mesenteric: Celiac artery demonstrates no evidence [...] Technically difficult exam due to bowel gas. METS: Walk indoors, such as around the house (1.75 METs) Do light work around the house, such as dusting or washing dishes (2.70 METs) Take care of self; that is eating, dressing, bathing, using the toilet (2.75 METs) Walk a block or two on level ground (2.75 METs) Do moderate work around the house such as vacuuming, sweeping floors, or carrying in groceries (3.50 METs) Climb a flight of stairs or walk up a hill (5.50 METs) Patient denies any chest pain or undue shortness of breath with the above physical activity. ASSESSMENT: Idiopathic hypotension Assessment: Stable with midodrine (PROAMATINE) , follows with PCP. PONV (postoperative nausea and vomiting) Assessment: severe, Hx of aspiration pneumonia from current status Reports scopolamine patch works Anesthesia Considerations NPO p [place] RICHAR on CPAP Assessment: Does not use CPAP Asthma Assessment: Stable with inhalers, follows with PCP. GERD (gastroesophageal reflux disease) Assessment: Managed with med, with OK control On total parenteral nutrition (TPN) Assessment: At night. Aware to Hold after [place] Bariatric surgery status Assessment: Has had 100 lb weight loss efforts supported Jejunostomy tube present (HCC) Assessment: Noted, gives self boluses of water throughout day. Acquired hypothyroidism Assessment: Stable with medications, follows with Endocrinology . Anemia Assessment: iron supplement labs stable,acceptable for surgery Anxiety and depression Assessment: Pt. reports mood is stable with medication Chronic abdominal pain Assessment: Managed with Ketamine nasal spray Pt. will not take on DOS Current use of steroid medication Assessment: Daily prednisone for Hives, Follows with PCP ANESTHESIA FINDINGS: Intubation History: No history of difficult intubation Significant Anesthesia Considerations: Postop nausea/vomiting Severe, Hx of aspiration pneumonia from current status. Reports scopolamine patch works Daily prednisone Airway Exam: General: Normal appearance Mallampati Score is CLASS II ULBT: Class II - Lower incisors can bite the upper lip below the deborah line Neck: Normal appearance and function, Distance from hyoid to mentum during neck extension is at least 3 finger breaths Mouth: Normal tongue size and Mouth opening greater than 2 finger breaths Dentition: Intact 05/25/2023 AIRWAY>EPIC Indications and Patient Condition Indications for airway [...] pre-anesthetic condition of lips and teeth intact. Airway History: No abnormal airway history STOP BANG Score: RICHAR does not use CPAP/BiPAP PLAN This patient is optimally prepared for surgery. CONSULTS: Patient does not require consults for optimization at this time. The Following Tests/Procedures Have Been Initiated: Labs not indicated per [facility] protocol, EKG not indicated per [facility] protocol Planned Anesthetic: Per anesthesia choice Instructions Given to Patient: Instructions located in the after visit summary. Patient given verbal and written preop instructions and voices comprehension and compliance. SIGNATURE: Chantal Brown APRN.CNP PATIENT NAME: Abbey Garcia DATE: October 06, 2023 TIME: 3:45 PM documented in this encounter [facility] 09-28-2023 Note HNO ID: [id number] Author: PABLO LEBRON PSYD Service: ? Author Type: Psychologist Type: Progress Notes Filed: 09/28/2023 09:27 Note Text: Assessment was conducted virtually. Patient is a resident of [place], and completed the assessment virtually in [place]. Psychologist is licensed and stationed in [place]. Informed consent was discussed and verbal assent was granted by the patient. GENERAL PSYCHOLOGY Session #: 6 (session count starts after PSYL NEW EVAL visit) SUBJECTIVE: Anxiety regarding surgery for bowel obstruction next week (pain, nausea). Anxiety preparing for kids' start of school year next week. Overwhelmed, fatigued, run down. Efforts to be as organized as possible. 's own health challenges. Accepting concept of good enough (cleaning house), slowing down. Benefits of deep breathing; positive self talk. Efforts to ask for help. Some help from extended family. Enjoying reading. OBJECTIVE: Utilized cognitive behavioral and solution focused [...] Judgment: Appropriate ASSESSMENT: Explore and process pt's anxiety regarding surgery for bowel obstruction next week (pain, nausea), preparing for kids' start of school year next week, and attending to household responsibilities, respectively. Pt describes feeling overwhelmed, fatigued, and run down, and reports getting some support from her extended family ( dealing with his own health challenges). Discuss with pt the concept of good enough, allowing herself to slow down, and asking for/receiving help from others. Pt alludes to the benefits of deep breathing, positive self talk, attending talk therapy, and taking time to read. Session concludes after 20 minutes so pt can attend to the needs of her three children. DIAGNOSIS: PRIMARY: 1: Depression, Controlled Generalized Anxiety Disorder Situational Stress PROVISIONAL: Unspecified trauma and stressor related disorder TREATMENT MODALITIES: Cognitive Behavioral Therapy to behavior modifications, cognitive restructuring, self monitoring and increasing pleasurable activities, Solution Focused Psychotherapy, Supportive Therapy PROGRESS TO DATE: [facility] Progress: Stable Short Term Condition: Stable GOALS/OBJECTIVES/INTERVENTIONS: To identify and implement tools for effectively managing symptoms of anxiety, stress, and low mood. Approximately 20 minutes were spent with the patient doing therapy. Pablo Lebron, [facility] 09-28-2023 History of Presen t illness Narrative Assessment was conducted virtually. Patient is a resident of [place], and completed the assessment virtually in [place]. Psychologist is licensed and stationed in [place]. Informed consent was discussed and verbal assent was granted by the patient. GENERAL PSYCHOLOGY Session #: 6 (session count starts after [facility] visit) SUBJECTIVE: Anxiety regarding surgery for bowel obstruction next week (pain, nausea). Anxiety preparing for kids' start of school year next week. Overwhelmed, fatigued, run down. Efforts to be as organized as possible. 's own health challenges. Accepting concept of good enough (cleaning house), slowing down. Benefits of deep breathing; positive self talk. Efforts to ask for help. Some help from extended family. Enjoying reading. OBJECTIVE: Utilized cognitive behavioral and solution focused [...] Judgment: Appropriate ASSESSMENT: Explore and process pt's anxiety regarding surgery for bowel obstruction next week (pain, nausea), preparing for kids' start of school year next week, and attending to household responsibilities, respectively. Pt describes feeling overwhelmed, fatigued, and run down, and reports getting some support from her extended family ( dealing with his own health challenges). Discuss with pt the concept of good enough, allowing herself to slow down, and asking for/receiving help from others. Pt alludes to the benefits of deep breathing, positive self talk, attending talk therapy, and taking time to read. Session concludes after 20 minutes so pt can attend to the needs of her three children. DIAGNOSIS: PRIMARY: 1: Depression, Controlled Generalized Anxiety Disorder Situational Stress PROVISIONAL: Unspecified trauma and stressor related disorder TREATMENT MODALITIES: Cognitive Behavioral Therapy to behavior modifications, cognitive restructuring, self monitoring and increasing pleasurable activities, Solution Focused Psychotherapy, Supportive Therapy PROGRESS TO DATE: [facility] Progress: Stable Short Term Condition: Stable GOALS/OBJECTIVES/INTERVENTIONS: To identify and implement tools for effectively managing symptoms of anxiety, stress, and low mood. Approximately 20 minutes were spent with the patient doing therapy. Pablo Lebron PsyD documented in this encounter [facility] 09-20-2023 History of Presen t illness Narrative VIRTUAL VISIT PROGRESS NOTE This is a virtual visit using [employer] Video Visit. It required patient-provider interaction for the medical decision making as documented below. I have communicated my name and active licensure. The patient's identity and physical location were verified at the time of this visit. Either the patient or their legal dealer compliance representative has been informed of the risks [...] weeks. Do not use calcium as a filler sifter machine preparation. If insomnia or vivid dreams [...] additional findings. CT ABD/PEL W IVCON (Order #[id number]) on 09/18/2023 - Order Result History Report [...] was characterized by healthy appearing mucosa. The idnxinhr-ed-hnqheci limb was examined. The examined jejunum was [...] symptom association observed. PH HUERTA INSERT ON [facility] (Order #[id number]) on 08/31/2023 - Order Result History Report - Result Edited EGD - THERAPEUTIC, EUS, OR TUBE INTERVENTIONS (Order #[id number]) on 08/26/2023 - Order Result History Report [...] Deacon Kat MD documented in this encounter [facility] 09-20-2023 Note [facility] 09-18-2023 Note [facility] 09-17-2023 Note [facility] 09-11-2023 Note [facility] 09-08-2023 History of Presen t illness Narrative [...] weeks. Do not use calcium as a filler sifter machine preparation. If insomnia or vivid dreams [...] which included preparing to see the patient, [id number]-[id number] patient care, completing clinical documentation, obtaining and/or reviewing separately obtained history, performing a medically appropriate examination, counseling and educating the patient/family/caregiver, ordering medications, tests, or procedures, and communicating with other HCPs (not separately reported). Signature: Kasie Avalos MD Date: 09/08/23 Time: 12:10 PM documented in this encounter [facility] 09-08-2023 Note [facility] 08-31-2023 Note [facility] 08-31-2023 History of Presen t illness Narrative Name: Abbey Garcia [facility]#: [id number] Date: 08/31/2023 HUERTA 48 HR PH FOLLOW-UP The HUERTA monitor was returned today.. Test data from the counter hand was downloaded. Events from the patient diary were inserted into the study for physician review. .Marisabel Lynn LPN documented in this encounter [facility] 08-26-2023 Nurse Note AMBULATORY PATIENT [...] MATERIAL: Procedure Discharge Instructions REFERRAL (RECOMMENDATION): None [facility] 08-26-2023 Nurse Note AMBULATORY PATIENT [...] MATERIAL: Procedure Discharge Instructions REFERRAL (RECOMMENDATION): None Patient had a PICC line present on admission to 1. PICC line had a brisk blood return [...] In Department: GASTROENTEROLOGY documented in this encounter [facility] 08-26-2023 Nurse Note AMBULATORY PATIENT [...] MATERIAL: Procedure Discharge Instructions REFERRAL (RECOMMENDATION): None [facility] 08-26-2023 Note [facility] 08-26-2023 History of Presen t illness Narrative Name: Abbey Garcia [facility]#: [id number] Date: 08/26/2023 48hr HUERTA PH CAPSULE PLACEMENT [...] .Marisabel Lynn LPN documented in this encounter [facility] 08-26-2023 Nurse Note Patient had a PICC line present on admission to A[facility]. PICC line had a brisk blood return and flushed per [facility] policy. Patient tolerated well. [facility] 08-26-2023 Nurse Note PRE OP LEARNING ASSESSMENT PROCEDURE/SURGERY: GI PROCEDURES: EGD READINESS TO LEARN COGNITIVE ABILITY: Alert and oriented MOTIVATION TO LEARN: Interested FAMILY SUPPORT: Unable to assess - Family not present PATIENT LEARNS BEST BY: Individual Instruction FACTORS AFFECTING LEARNING: None PHYSICAL LIMITATIONS AFFECTING LEARNING: None Electronically Signed By: Lisette Newell RN In Department: GASTROENTEROLOGY [place] 08-25-2023 Telephone encounter Note Called patient; [facility] in [place] has been removed from Pharmacy list. Patient requests [place] location. Patient's request for medication is as follows: [...] weeks. Do not use calcium as a filler sifter machine preparation. If insomnia or vivid dreams occur, then would take capsule at 9 am. Prescription(s) as above. Please process accordingly. Sabina Ibrahim MA [place] 08-25-2023 Miscellaneous Notes Called patient; [facility] in [place] has been removed from Pharmacy list. Patient requests [place] location. Patient's request for medication is as follows: [...] weeks. Do not use calcium as a filler sifter machine preparation. If insomnia or vivid dreams occur, then would take capsule at 9 am. Prescription(s) as above. Please process accordingly. Sabina Ibrahim MA documented in this encounter [facility] 08-23-2023 Telephone encounter Note Doxycycline ordered. Make sure bumper is not tight to skin, there should be 1 cm (1/3 inch) of play. [facility] 08-23-2023 Miscellaneous Notes Doxycycline ordered. Make sure bumper is not tight to skin, there should be 1 cm (1/3 inch) of play. documented in this encounter [facility] 08-20-2023 Telephone encounter Note Patient's [...] appreciative of call. Serena Neff RN BSN Scenic Designer for Dr. Kat [facility] 08-20-2023 Miscellaneous Notes Patient's called [...] plan and appreciative of call. Serena Neff OPTIMIZATION MANAGER Scenic Designer for Dr. Kat Staff message sent to Dr. Kat. Patient's phoned me to discuss Abbey. States Abbey is having severe, debilitating abdominal [...] too far out, as he is taking Archer to the hospital 1-2 times per week [...] to Dr. Kat. Serena Neff RN BSN Scenic Designer for Dr. Kat documented in this encounter [facility] 08-18-2023 Telephone encounter Note Staff message sent to Dr. Kat. [facility] 08-18-2023 Telephone encounter Note Patient's phoned me to discuss Archer. States Abbey is having severe, debilitating abdominal [...] to Dr. Kat. Serena Neff RN BSN Scenic Designer for Dr. Kta [facility] 08-12-2023 Telephone encounter Note GI Pre-Procedure Spoke with patient: Yes Confirmed date scheduled and patient report time: Yes Procedure Planned:Huerta insert Esophagogastroduodenoscopy(EGD) for control of bleeding,dilation(any means),imaging,tube placement Is the patient on blood thinners?no Procedure Instructions given to patient: Yes, and they verbalized their understanding of instructions given Patient instructed to have family/friend present for procedure transport home:Patient/patient dealer compliance representative was told that if they do [...] area. Any barriers to Patient learning: Patient/Patient Flash Developer responded appropriately on phone. Type of instruction given: Verbal by telephone contact. Radha Osman MA [facility] 08-12-2023 Miscellaneous Notes GI Pre-Procedure Spoke with patient: Yes Confirmed date scheduled and patient report time: Yes Procedure Planned:Huerta insert Esophagogastroduodenoscopy(EGD) for control of bleeding,dilation(any means),imaging,tube placement Is the patient on blood thinners?no Procedure Instructions given to patient: Yes, and they verbalized their understanding of instructions given Patient instructed to have family/friend present for procedure transport home:Patient/patient dealer compliance representative was told that if they do [...] area. Any barriers to Patient learning: Patient/Patient Flash Developer responded appropriately on phone. Type of instruction given: Verbal by telephone contact. Radha Osman MA documented in this encounter [facility] 08-09-2023 History of Presen t illness Narrative Images from the original note were not included. SUBJECTIVE: The patient presents to [facility] Pain Management Department for a follow-up appointment for pain in the abdomen (naval and comes around to left side to back) BIPIN: 08/04/[address] Blade perez Current pain intensity is 7 on a scale of 0 -10. Pain character: spasms intermittent, sharpness Exacerbating factors: moving around (being active, moving around) Alleviating factors: laying on right side curled up Medications For Pain: - Opioids: - NSAIDs: - Anti-Depressants: lexapro - Anti-Convulsants: topamax - Others: tylenol, naltrexone, ketamine (2 compound medications) Opioid agreement: OARRS report reviewed by the physician Jose called [facility] & was told that medications [...] re: [place] vs. different [place] location vs. [employer] online to try She previously tried gabapentin, [...] spray continued (problem with in stock at [facility] pharmacy) Return to clinic (in-person office visit or virtual visit/telemedicine) after all above completed fully. I spent a total of 25 minutes on the date of the service which included: *preparing to see the patient *rofe-gp-hutx patient care *completing clinical documentation *obtaining and/or [...] August 05, 2023 documented in this encounter [facility] 08-09-2023 Note [facility] 08-06-2023 Note [facility] 08-06-2023 Note HNO ID: [id number] Author: MARIA TERESA MURILLO MD Service: Hospital Medicine Author Type: Physician Type: Plan of Care Filed: 08/06/2023 11:50 Note Text: To review with pulmonology [facility] 08-05-2023 Note [facility] 08-05-2023 Telephone encounter Note Requested Prescriptions Pending Prescriptions Disp Refills ketamine 5% nasal spray solution (CPD) 12 mL 0 Si.1 mL/spray. Use as directed. 1 spray by nose twice per day x 3 days, then increase to 2 sprays by nose twice per day if tolerated. Added volume to account for dispenser loss. Physician office visit required for refill. [facility] 08-05-2023 Miscellaneous Notes Requested Prescriptions [...] required for refill. documented in this encounter [facility] 08-05-2023 Note [facility] 08-04-2023 Note [facility] 08-04-2023 Note [facility] 08-04-2023 Note [facility] 08-04-2023 Telephone encounter Note Lucie from [facility] pharmacy calling regarding RX just sent in for Ketamine. He states that is not something they have or can help with at [facility]. States maybe a compounding pharmacy. So RX unavailable. [facility] 08-04-2023 Miscellaneous Notes Lucie from [facility] pharmacy calling regarding RX just sent in for Ketamine. He states that is not something they have or can help with at [facility]. States maybe a compounding pharmacy. So RX unavailable. documented in this encounter [facility] 08-04-2023 History of Presen t illness Narrative Follow up Visit Patient Name: Abbey Garcia MR #: [id number] Age: [age] year old Date: August 03, [...] SD worse than population and warrants attention Police Worker:Nathalie Reed MA The patient is a 33-year-old [...] a soft abdomen. Patient has remarkable tenderness George to palpation even for very light palpation [...] her next visit documented in this encounter [facility] 08-04-2023 Note [facility] 07-20-2023 Note [facility] 07-19-2023 Note [facility] 07-18-2023 Note [facility] 07-17-2023 Consult note Note Date/Time July 17, 2023 1:56p m [facility] [address] [place] [address] General Surgery Consult Note Signed Patient: Abbey Garcia MR#: [id number] : 1990 Acct:[id number] Age/Sex: 33 / F Adm Date: 4 Loc: Room: [address] [place] [address] Type: ADM IN Attending Dr: Camden Rodriguez [...] abdominal pain, Reports nausea and Reports vomiting [facility] Medical History Encounter for PEG (percutaneous [...] List clean-up per request of Phys. EHR [facility] Surgical History History of gastric bypass 01/2022 History of appendectomy Problem List clean-up per request of Phys. EHR [facility] Family History Father Hypothyroidism Mother Family history of mental disorder [facility] Problem: Diagnosed with Mental Illness Hypertension Diabetes [...] 15 Mg Tablet) 15 mg PO TID [facility] Stop: 07/16/24 13:59 Dextrose (Dextrose 50% In [...] Ml) 1,000 mls @ 100 mls/hr IV .[id number] Stop: 07/18/24 08:59 Potassium Chloride 20 meq/ [...] 1,512.2 mls @ 63.008 mls/hr IV DAILY@1800 [facility]; Protocol Stop: 07/16/24 17:59 Fat Emulsion Intravenous 250 (ml/ IV Miscellaneous Supplies) 250 mls @ 21 mls/hr IV MOWEFR@1800 [facility] Stop: 07/18/24 17:59 Levothyroxine Sodium (Levothyroxine 75 Mcg Tablet) 75 mcg PO DAILY@0630 [facility] Stop: 07/17/24 06:29 Liothyronine Sodium (Liothyronine 5 Mcg Tablet) 5 mcg PO DAILY [facility] Stop: 07/16/24 08:59 Last Admin: 07/17/23 11:21 Dose: 5 mcg Methocarbamol (Methocarbamol 500 Mg Tablet) 500 mg PO BID [facility] Stop: 07/16/24 08:59 Last Admin: 07/17/23 11:21 Dose: 500 mg Metoclopramide HCl (Metoclopramide 10 Mg Tablet) 10 mg PO TID.AC [facility] Stop: 07/16/24 11:29 Last Admin: 07/17/23 11:21 Dose: 10 mg Mirtazapine (Mirtazapine 30 Mg Tablet) 30 mg PO HS [facility] Stop: 07/16/24 21:59 Morphine Sulfate (Morphine Sulfate [...] 40 Mg Vial) 40 mg IV-PUSH DAILY [facility] Stop: 07/16/24 08:59 Last Admin: 07/17/23 11:22 Dose: 40 mg Polyethylene Glycol (Polyethylene Glycol 3350 17 Gm Powd.Pack) 17 gm PO BID PRN PRN Reason: constipation Stop: 07/16/24 09:07 Prednisone (Prednisone 5 Mg Tablet) 5 mg PO DAILY [facility] Stop: 07/17/24 08:59 Sodium Chloride (Sodium Chloride [...] 100 Mg Tablet) 100 mg PO BID [facility] Stop: 07/16/24 08:59 Last Admin: 07/17/23 [...] Appearance Clear, Urine pH 7.5, Ur Specific Arjay 1.006, Urine Protein Negative, Urine Glucose (UA) [...] % (Auto) 75.6, Lymph % (Auto) 18.7, Nelson % (Auto) 4.5, Eos % (Auto) 0.5, Baso % (Auto) 0.7, Nucleat RBC Rel Count 0.0, Neut # (Auto) 5.2, Lymph # (Auto) 1.3, Nelson # (Auto) 0.3, Eos # (Auto) 0.0, [...] times. Documented By: Keven Kimbrough MD 07/17/23 [id number] Signed By: <Electronically signed by MD Keven Kimbrough> 07/17/23 9185 [facility] Work Phone: 1(995) 614-580406-01-2024 History and physical note Author Camden Rodriguez [facility] July 17, 2023 11:19am Note Date/Time July 17, 2023 11:19 am [facility] [address] [place] [address] Hospitalist H&P Signed Patient: Abbey Garcia MR#: [id number] : 1990 Acct:[id number] Age/Sex: 33 / F Adm Date: 4 Loc: 4N Room: [address] [place] [address] Type: ADM IN Attending Dr: Camden Rodriguez [...] negative unless noted below or in HPI [facility] Medical History Encounter for PEG (percutaneous [...] List clean-up per request of Phys. EHR [facility] History History of gastric bypass 01/2022 History of appendectomy Problem List clean-up per request of Phys. EHR [facility] Family History Father Hypothyroidism Mother Family history of mental disorder [facility] Problem: Diagnosed with Mental Illness Hypertension Diabetes [...] % (Auto) 18.7 % (.) 07/16/23 15:10 Nelson % (Auto) 4.5 % (.) 07/16/23 15:10 Eos % (Auto) 0.5 % (.) 07/16/23 15:10 Baso % (Auto) 0.7 % (.) 07/16/23 15:10 Nucleat RBC Rel Count 0.0 /100 WBC (0-0.5) 07/16/23 15:10 Neut # (Auto) 5.2 x10E3/uL (1.8-7.7) 07/16/23 15:10 Lymph # (Auto) 1.3 x10E3/uL (1.00-4.8) 07/16/23 15:10 Nelson # (Auto) 0.3 x10E3/uL (0.0-0.8) 07/16/23 15:10 [...] pH 7.5 (5.0-9.0) 07/16/23 15:21 Ur Specific Arjay 1.006 (1.001-1.030) 07/16/23 15:21 Urine Protein Negative [...] signed by Camden Rodriguez DO> 07/17/23 1119 [facility] Work Phone: 1(467) 552-548905-30-2024 [facility] Tele[facility] encounter Note* Telephone Encounter - [...] have family/friend present for procedure transport home:Patient/patient dealer compliance representative was told that if they do [...] area. Any barriers to Patient learning: Patient/Patient Flash Developer responded appropriately on phone. Type of instruction given: Verbal by telephone contact. Natalie Alarcon LPN [facility]05-28-2024 Miscellaneous Notes* Telephone Encounter - [...] have family/friend present for procedure transport home:Patient/patient dealer compliance representative was told that if they do [...] area. Any barriers to Patient learning: Patient/Patient Flash Developer responded appropriately on phone. Type of instruction given: Verbal by telephone contact. Natalie Alarcon LPN documented in [facility] Note [id number] [facility] 07-09-2023 NoteHNO ID: [id number] Author: PABLO LEBRON PSYD Service: ? Author Type: Psychologist Type: Progress Notes Filed: 07/09/2023 09:26 Note Text: Assessment was conducted virtually. Patient is a resident of [place], and completed the assessment virtually in [place]. Psychologist is licensed and stationed in [place]. Informed consent was discussed and verbal assent [...] exercise, positive self-talk). Sources of support (, [id number], brothers, grandfather). OBJECTIVE: Utilized cognitive behavioral and [...] positive self-talk) and sources of support (, nfytuw-[id number], brothers, grandfather). Pt requests to end session early due to childcare needs. DIAGNOSIS: PRIMARY: 1: Depression, Controlled Generalized Anxiety Disorder Situational Stress PROVISIONAL: Unspecified trauma and stressor related disorder TREATMENT MODALITIES: Cognitive Behavioral Therapy to behavior modifications, cognitive restructuring, self monitoring and increasing pleasurable activities, Solution Focused Psychotherapy, Supportive Therapy PROGRESS TO DATE: [facility] Progress: Stable Short Term Condition: Stable GOALS/OBJECTIVES/INTERVENTIONS: To identify and implement tools for effectively managing symptoms of anxiety, stress, and low mood. Approximately 15 minutes were spent with the patient doing therapy. [facility] History of Present illness Narrative* Pablo Lebron, [facility] - 07/09/2023 8:57 AM EDT Assessment was conducted virtually. Patient is a resident of [place], and completed the assessment virtually in [place]. Psychologist is licensed and stationed in [place]. Informed consent was discussed and verbal assent [...] exercise, positive self-talk). Sources of support (, [id number], brothers, grandfather). OBJECTIVE: Utilized cognitive behavioral and [...] positive self-talk) and sources of support (, idvfln-tu-tut, brothers, grandfather). Pt requests to end session early due to childcare needs. DIAGNOSIS: PRIMARY: 1: Depression, Controlled Generalized Anxiety Disorder Situational Stress PROVISIONAL: Unspecified trauma and stressor related disorder TREATMENT MODALITIES: Cognitive Behavioral Therapy to behavior modifications, cognitive restructuring, self monitoring and increasing pleasurable activities, Solution Focused Psychotherapy, Supportive Therapy PROGRESS TO DATE: [facility] Progress: Stable Short Term Condition: Stable GOALS/OBJECTIVES/INTERVENTIONS: To identify and implement tools for effectively managing symptoms of anxiety, stress, and low mood. Approximately 15 minutes were spent with the patient doing therapy. Pablo Lebron PsyD documented [facility] Note* Rosanna Blanco [facility] - 07/06/2023 1:55 PM EDT Post Void Residual done on patient with 8 cc residual volume remaining. MD notified. ALLISON Schreiber [facility]05-21-2024 Nurse Note* Rosanna Balnco [facility] - 07/06/2023 1:55 PM EDT Post Void Residual done on patient with 8 cc residual volume remaining. notified. ALLISON Schreiber documented in this encounterThe [facility] History of Present illness Narrative* Francisco J Steve MD - 07/06/2023 1:40 PM EDT [facility]ON[facility] PATIENT HISTORY AND PHYSICAL EXAM PATIENT INFO: Abbey Garcia is a 33 year old female. REFERRING M.DRenetta: Marcos Moreno [address] [place] [address] [place] [address] Moreno for an [...] having recent UTI, that was treated at [facility] (although no records seen of this) and that she required a long catheter for two weeks due to high amounts in her bladder. No recent dysuria or hematuria. Does endorse some left flank pain. History of three C-sections, no vaginal deliveries QUESTIONNAIRE: Questionnaire: [facility] Intake Questionnaire Question Answer Have [...] information you will be given? No Questionnaire: [facility] Additional Demo Question Answer Is this visit related to an accident, other than Workers' Compensation? No Is this visit related to Workers' Compensation? No Do you need an farm appraiser? 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 Pegfeedings stopped and flushed prior to clamping. Patient TPN stopped PICC flushed patient to leave with PICC [facility]05-18-[facility]24 Nurse Note* Tory [...] lumen picc, per patient was placed at [facility] about a month ago for TPN infusions. [...] call light within reach. documented in this [facility] Work Phone: [phone]) 172-148905-18-2024 Nurse Note* Tory Mcmullen RN - 07/03/2023 2:11 PM EDT Long removed per orders, discharge prepared at this time. [facility] Work Phone: 1(968) 967-222605-18-2024 History of Present illness Narrative* Dolores Cox MD - 07/03/2023 12:22 PM EDT Abbey Garcia is a 33 y.o. female on day 3 of admission presenting with Epigastric pain. Subjective She presented to the hospital with abdominal pain. She had previously undergone laparoscopic sleeve gastrectomy, on 09/03/2020 at the [facility]. She has a gastrojejunostomy tube. She [...] medication and antiemetic. [facility]. Dolores Cox MD * Fadumo Edge RDN, LD - 07/02/2023 2:23 PM EDT Nutrition Progress Note messaged me for tube feed recommendations. Pt is now receiving tube feed and TPN. Nutrition Interventions and Recommendations: Nutrition Prescription: Individualized Nutrition Prescription Provided for : 7513-3818 kcals, 59-71 gm protein via parentaland enteral [...] External referral already placed and sent to [facility]. [facility] will need to be notified via [...] XR chest 1 view Narrative: Interpreted By: oDtty Salcido, STUDY: XR CHEST 1 VIEW 07/01/2023 1:30 pm INDICATION: Signs/Symptoms:PICC line position verification COMPARISON: 03/17/2023 ACCESSION NUMBER(S): [id number] ORDERING CLINICIAN: DOLORES COX TECHNIQUE: Single AP view chest FINDINGS: Cardiomediastinal silhouette is within normal limits. Right-sided PICC line identified with tip in the region of the mid SVC. No infiltrate or effusion is identified. Visualized osseous structures unremarkable. Impression: 1. Right PICC line placement with tip in the mid SVC. 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 Report Amended Report Amended By: [id number] Magaña MD Date and Time: 06/30/2023 at [...] PSV 89 cm/s KEELY PSV 105 cm/s [id number] Magaña [place] [id number] Magaña MD Electronically Amended 06/30/2023, 12:15 PM [...] patient follow up with Dr. Morel at [facility] for intestinal rehab Start trickle [...] tomorrow, will plan to discharge home with [facility]. Kina Ann MD * Shelley Nash, PERIOPERATIVE ASSISTANT-FIRE CONTROL ASSISTANT - 07/01/2023 2:37 PM EDT Abbey Garcia [...] GI rehab program as previously recommended at [facility]. GS will sign off. I [...] already placed andclinicals sent to agency through [facility]. They have accepted patient. Will follow. [...] established prior to hospitalization Yes * Jason Foster, PERIOPERATIVE ASSISTANT-FIRE CONTROL ASSISTANT - 07/01/2023 11:49 AM EDT Abbey Garcia [...] 83 mL/hr, Last Rate: 83 mL/hr (06/30/23 2151) dextrose 10 % in water (D10W), 75 mL/hr, Last Rate: 75 mL/hr (07/01/23 4384) PRN medications PRN medications: acetaminophen OR acetaminophen, albuterol, alteplase, dextrose, dextrose, glucagon, glucagon, hydrOXYzine HCL, ondansetron, sodium chloride 0.9%, traMADol Vascular US mesenteric artery duplex complete Result Date: 07/01/2023 [place] [address] Vascular Lab Report [facility] US MESENTERIC ARTERY DUPLEX COMPLETE Patient Name: ABBEY Oneil Physician: [id number] Magaña MD Study Date: 06/30/2023 Ordering Provider: [id number] JAMIL GAVIN MRN/PID: [id number] Fellow: Technologist: Leia Degroot T Date of /Age: 2 1990 / 33 years Technologist 2: Gender: F Admission Status: Inpatient Location Performed: [facility] 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 Report Amended Report Amended By: [id number] Magaña MD Date and Time: 06/30/2023 at [...] PSV 89 cm/s KEELY PSV 105 cm/s [id number] Magaña [place] [id number] Magaña MD Electronically Amended 06/30/2023, 12:15 PM [...] Audie Gutierrez 06/30/2023 12:06 PM Dictation workstation: [id number] CT abdomen pelvis wo IV contrast Result Date: 06/29/2023 Interpreted By: Fly West, STUDY: CT ABDOMEN PELVIS WO IV CONTRAST; 06/29/2023 11:09 pm INDICATION: Signs/Symptoms:Abdominal pain. COMPARISON: 03/16/2023 ACCESSION NUMBER(S): [id number] ORDERING CLINICIAN: DAVID VALADEZ TECHNIQUE: Axial CT [...] Fly West 06/29/2023 11:53 PM Dictation workstation: [id number] CT abdomen pelvis w IV contrast Result [...] Trace ascites, also present on previous exams Quality Process Auditor: [facility] Transcribe Date/Time: Jun 18 2023 3:00P Dictated by : KYLE HERNANDEZ MD This examination was interpreted and the report reviewed and electronically signed by: KYLE HERNANDEZ MD on Jun 18 2023 3:30PM EST CT abdomen pelvis w IV contrast Result Date: 06/06/2023 * * *Final Report* * * DATE OF EXAM: Jun 06 2023 5:47PM [facility] 0530 - CT ABD/PEL W IVCON [...] PROCESS. NO SIGNIFICANT INTERVAL CHANGE SINCE 12/06/2022. Quality Process Auditor: [facility] Transcribe Date/Time: Jun 06 2023 7:08P Dictated [...] vascular cause. Recommend following up with the [facility] for intestinal rehab as recommended by [...] laparoscopic sleeve gastrectomy, on 09/03/2020 at the [facility]. She has a gastrojejunostomy tube. She [...] RN - 06/30/2023 4:41 PM EDT 06/30/23 1639 Physical Activity On average, how many days [...] How often do you attend restorationist or holiness services? More than 4 Do you belong [...] In the past 12 months has the [place], gas, oil, or water [employer] threatened to shut off services in your [...] laparoscopic sleeve gastrectomy, on 09/03/2020 at the [facility]. She had a gastrojejunostomy tube. She [...] for Epigastric pain. Pharmacy reviewed the patient's fbgcm-lz-rbqvvqfvv medications and allergies for accuracy. Medications ADDED: Methocarbamol 750 mg TID Medications CHANGED: Buspirone 10 mg Mirtazapine 30 mg Miralax Topiramate 100 mg Medications REMOVED: Diazepam 5 mg Percocet 5 mg/325 mg The list below reflects the updated TRANSLATION DIRECTOR list. Comments regarding how patient may [...] Low Nausea/vomiting Pharmacy has been updated to [facility]. Sources used to complete the med history include patient interview, TRANSLATION DIRECTOR list, dispense history Below are additional concerns with the patient's TRANSLATION DIRECTOR list. -Pt is no longer taking diazepam or Percocet -Added methocarbamol 750 mg TID -Buspirone, mirtazapine, Miralax and topiramate doses have changed Mariela Tesfaye PharmD Please reach out via [employer] Secure Chat for questions * Sherry Magaña [...] Dr. Deacon Kat, her general surgeon at [facility]. The plan from them is a referralto [facility] intestinal rehabilitation. Patient to follow up with Dr. Kats office. 06/30/23 at 8:28 AM - Sherry Magaña MD Addendum: There is conclusively no vascular etiology for patient's current pain syndrome. Needs to be referred ultimately to Dr. Deacon Kat and Intestinal Rehab unit at [facility] after stabilization. Duplex shows no compression of celiac axis or internal lesions. There is no stenosis of the celiac axis or SMA. CTA reviewed. No vascular compression documented in this [facility] Work Phone: 1(855) 471-127805-18-2024 Plan of care note* Care Plan - [...] monitored and maintained or improved Outcome: Progressing [facility] Work Phone: 1([phone]) 573-603705-18-2024 Miscellaneous Notes* Care Plan - Tory Mcmullen [...] no hearing aids. Her PCP is in [facility]; and she uses [facility] [address] in [facility]. She has a hx of gastric bypass, c/o abd pain. No anticipated discharge needs. DISCHARGE PLAN: HOME WITH documented in this [facility] Work Phone: [phone] Nurse Note* Tory Mcmullen RN - 07/03/2023 8:16 AM EDT Assumed care of patient at this time, patient is resting in bed with brake in place and call light in reach denies any needs [facility] Work Phone: [phone] Nurse Note* Grecia Schaffer RN - 07/03/2023 6:49 AM EDT Chg bath performed by this nurse. Gown and linens changed. Pt ambulated to the bathroom, pt reportsliquid dark, black stool ( not witnessed by nurse). [facility]05-17-2024 Plan of care note* Care [...] did make progress toward the following goals. [facility] Work Phone: 1(235) 488-898005-17-2024 Nurse Note* Yue Ferris RN - 07/02/2023 12:00 PM EDT Upon rounding right upper arm dual lumen PICC with current CHG dressing dry and intact. One port inuse, one with brisk blood return and flushes easily, clamped and Curos cap intact. [facility]05-16-2024 Plan of care note* Care [...] monitored and maintained or improved Outcome: Progressing T [facility]05-16-2024 Nurse Note* Edilia Darby RN - 07/01/2023 1:56 PM EDT CXR from today verifies picc tip in mid SVC. [facility]05-16-2024 Nurse Note* Edilia Darby RN - 07/01/2023 12:48 PM EDT Patient with Rt arm dual lumen picc, per patient was placed at [facility] about a month ago for TPN infusions. [...] tip placement is needed. RN to message [facility] Work Phone: 1(672) 116-512305-16-2024 Consult note* Fadumo Edge RDN, LD - [...] renal failure superimposed on chronic kidney disease ([facility]) 06/29/2023 Anxiety Arthritis Asthma ([facility]) CPAP (continuous positive airway pressure) dependence Depression Disease of thyroid gland Dizziness GERD (gastroesophageal reflux disease) Hypothyroidism Irritable bowel syndrome with constipation Median arcuate ligament syndrome ([facility]) PCOS (polycystic ovarian syndrome) PONV (postoperative [...] 75 mL/hr, Last Rate: 75 mL/hr (07/01/23 0844) Dietary Orders (From admission, onward) Start Ordered 06/30/231747 May Participate in Room Service Once Question: . Answer: Yes 06/30/23174706/30/23 022 NPO Diet Except: Sips with meds; Effective now Diet effective now Question: Except: Answer: Sips with meds 06/30/23 0230 Nutrition Support Intake provides: 1420 kcals, 100 gm protein, 2000 mL total volume Estimated Needs: Estimated Energy Needs Total Energy Estimated Needs (kCal): (3535-6789) Total Estimated Energy Need per Day (kCal/kg): (25-30) Method for Estimating Needs: ABW Estimated Protein Needs Total Protein Estimated Needs (g): (59-71) Total Protein Estimated Needs (g/kg): (1-1.2) Method for Estimating Needs: ABW Estimated Fluid Needs Total Fluid Estimated Needs (mL): (2268-1925) Method for Estimating Needs: 1 mL/kcal Nutrition Diagnosis Nutrition Diagnosis: Nutrition Diagnosis Patient has Nutrition Diagnosis: Yes Diagnosis Status (1): New Nutrition Diagnosis 1: Altered GI function Related to (1): physiological causes As Evidenced by (1): need for TPN, cannot tolerate PO/ tube feed Nutrition Interventions/Recommendations Nutrition Interventions and Recommendations: Nutrition Prescription: Individualized Nutrition Prescription Provided for : 6951-8487 kcals, 59-71 gm protein via parentalnutrition Nutrition [...] Needed?: 3-5 days Follow up Comment: 07/05/[address] [facility] Work Phone: [phone] 174-722705-16-2024 Consult note* Fadumo Edge RDN, LD - [...] renal failure superimposed on chronic kidney disease ([facility]) 06/29/2023 Anxiety Arthritis Asthma ([facility]) CPAP (continuous positive airway pressure) dependence Depression Disease of thyroid gland Dizziness GERD (gastroesophageal reflux disease) Hypothyroidism Irritable bowel syndrome with constipation Median arcuate ligament syndrome ([facility]) PCOS (polycystic ovarian syndrome) PONV (postoperative nausea [...] 75 mL/hr, Last Rate: 75 mL/hr (07/01/23 3074) Dietary Orders (From admission, onward) Start Ordered 06/30/231747 May Participate in Room Service Once Question: . Answer: Yes 06/30/23174706/30/23 022 NPO Diet Except: Sips with meds; Effective now Diet effective now Question: Except: Answer: Sips with meds 06/30/23 0230 Nutrition Support Intake provides: 1420 kcals, 100 gm protein, 2000 mL total volume Estimated Needs: Estimated Energy Needs Total Energy Estimated Needs (kCal): (2707-9577) Total Estimated Energy Need per Day (kCal/kg): (25-30) Method for Estimating Needs: ABW Estimated Protein Needs Total Protein Estimated Needs (g): (59-71) Total Protein Estimated Needs (g/kg): (1-1.2) Method for Estimating Needs: ABW Estimated Fluid Needs Total Fluid Estimated Needs (mL): (7523-1951) Method for Estimating Needs: 1 mL/kcal Nutrition Diagnosis Nutrition Diagnosis: Nutrition Diagnosis Patient has Nutrition Diagnosis: Yes Diagnosis Status (1): New Nutrition Diagnosis 1: Altered GI function Related to (1): physiological causes As Evidenced by (1): need for TPN, cannot tolerate PO/ tube feed Nutrition Interventions/Recommendations Nutrition Interventions and Recommendations: Nutrition Prescription: Individualized Nutrition Prescription Provided for : 9538-0828 kcals, 59-71 gm protein via parentalnutrition Nutrition [...] for which she follows a surgeon at [facility]. They have been trying to advance [...] renal failure superimposed on chronic kidney disease ([facility]) (06/29/2023), Anxiety, Arthritis, Asthma ([facility]), CPAP (continuous positive airway pressure) dependence, Depression, Disease of thyroid gland, Dizziness, GERD (gastroesophageal reflux disease), H ypothyroidism, Irritable bowel syndrome, Median arcuate ligament syndrome ([facility]), PCOS (polycystic ovarian syndrome), PONV (postoperative nausea and vomiting), PUD (peptic ulcer disease), and Shortness of breath. She has no past medical history of Autoimmune disorder ([facility]), Bipolar disorder ([facility]), BPH (benign prostatic hyperplasia), Cerebral aneurysm ([facility]), Cervical cancer ([facility]), Cervical disc disease, Chronic kidney disease, CKD (chronic kidney disease), Cognitive decline, Crohn's disease ([facility]), Dementia ([facility]), Dysphagia, Endometrial cancer ([facility]), Esophageal cancer ([facility]), Esophageal disease, ESRD (end stage renal disease) ([facility]), Fibromyalgia, primary, Fractures, Gastric cancer ([facility]), Gender dysphoria, GI (gastrointestinal bleed), Hemodialysis status ([facility]), Hernia, internal, H istory of peritoneal dialysis, HIV disease ([facility]), Immunocompromised ([facility]), Liver disease, Lumbar disc disease, Mastocytosis, MS (multiple sclerosis) ([facility]), Muscular dystrophy ([facility]), Myasthenia gravis (Multi), Neuromuscular disorder (Multi), Ovarian cancer ([facility]), Pancreatitis ([facility]), Peptic ulcer disease, Prematurity ([facility]), PTSD (post-traumatic stress disorder), Schizophrenia (Multi), Seizure [...] Yellow, Dark-Yellow Appearance, Urine Clear Clear Specific Arjay, Urine 1.023 1.005 - 1.035 pH, Urine [...] Audie Gutierrez 06/30/2023 12:06 PM Dictation workstation: [id number] Vascular US mesenteric artery duplex complete Result Date: 06/30/2023 Preliminary Cardiology Report [facility] [id number] [id number] Preliminary Vascular Lab Report [facility] US MESENTERIC ARTERY DUPLEX COMPLETE Patient Name: ABBEY GARCIA Reading Physician: [id number] Sherry Magaña MD Study Date: 06/30/2023 Ordering Provider: [id number] JAMIL GAVIN MRN/PID: [id number] Fellow: Technologist: Leia Degroot RVT Date of : 1990 Technologist 2: Gender: F Admission Status: Inpatient Location Performed: [facility] 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 COMPARISON: 03/16/2023 ACCESSION NUMBER(S): [id number] ORDERING CLINICIAN: DAVID VALADEZ TECHNIQUE: Axial CT [...] Fly West 06/29/2023 11:53 PM Dictation workstation: [id number] Assessment/Plan Abdominal pain FTT 33-year-old female with complicated history after gastric bypass surgery. She has been working witha surgeon at [facility] to advance her tube feeds and oral intake and decrease the TPN, however this has been unsuccessful. She was evaluated by Dr. Magaña here and there is no evidence of celiac or SMA stenosis or compression. There is an intestinal rehabilitation program through [facility] and recommend follow-up with that program. Cont TPN for nutrition and PO/tube feeds as tolerated in the meantime Tomasa Ortiz MD * Lizzy Bentley, PERIOPERATIVE ASSISTANT-FIRE CONTROL ASSISTANT - 06/30/2023 11:27 AM EDTAssociated Order(s): Inpatient consult to Acute Care Surgery Assessment/Plan Inpatient consult to Acute Care Surgery Consult performed by: Lizzy Bentley APRN-FIRE CONTROL ASSISTANT Consult ordered by: Baldomero Woodard MD Reason [...] nausea aftera gastric bypass surgery done at [facility] in which she has been hospitalized [...] gastrectomy in August [address] Ku [id number] gastric bypass 01/29/[address] Kat) and median arcuate ligament syndrome who presented to the emergency department for further evaluation of mid epigastric abdominal pain and nausea. Jonh jose follows with GI and general surgery with the [facility] and is currently on TPN via [...] also spoke with her general surgeon at [facility] where patient was advised for referral to [facility] intestinal rehabilitation. Past Medical History Past Medical History: Diagnosis Date Acute renal failure superimposed on chronic kidney disease ([facility]) 06/29/2023 Anxiety Arthritis Asthma ([facility]) CPAP (continuous positive airway pressure) dependence Depression Dizziness GERD (gastroesophageal reflux disease) Hypothyroidism Irritable bowel syndrome with constipation Median arcuate ligament syndrome ([facility]) PCOS (polycystic ovarian syndrome) PONV (postoperative nausea [...] Insecurity: No Food Insecurity (06/07/2023) [facility] Hunger Vital Sign Worried About Running Out of Food in the Last Year: Never true Ran Out of Food in the Last Year: Never true Transportation Needs: No Transportation Needs (06/07/2023) Received from [facility] PRAPARE - Transportation Lack of Transportation (Medical): No Lack of Transportation (Non-Medical): No Physical Activity: Insufficiently Active (10/28/2022) Received from [facility] Exercise Vital Sign Days of Exercise per Week: 4 days Minutes of Exercise per Session: 30 min Stress: Stress Concern Present (10/28/2022) Received from [facility] [employer] - Occupational Stress Questionnaire Feeling of Stress : To some extent Social Connections: Socially Integrated (10/28/2022) Received from [facility] Social Connection and Isolation Panel [NHANES] Frequency of Communication with Friends and Family: More than three times a week Frequency of Social Gatherings with Friends and Family: Once a week Attends Jew Services: 1 to 4 times per year Active Member of Clubs or Organizations: Yes Attends Club or Organization Meetings: More than 4 times per year Marital Status: Intimate Partner Violence: Not on file Housing Stability: Low Risk (06/07/2023) Received from [facility] Housing Stability Vital Sign Unable [...] Yellow, Dark-Yellow Appearance, Urine Clear Clear Specific Arjay, Urine 1.023 1.005 - 1.035 pH, Urine [...] INDICATION: Signs/Symptoms:Abdominal pain. COMPARISON: 03/16/2023 ACCESSION NUMBER(S): [id number] ORDERING CLINICIAN: DAVID VALADEZ TECHNIQUE: Axial CT [...] Fly West 06/29/2023 11:53 PM Dictation workstation: [id number] Physical exam Constitutional: Alert and oriented to [...] for episodes of hypoglycemia documented in this [facility] Work Phone: 1([phone]) 202-614905-16-2024 Nurse Note* Mayda Balbuena LPN - 07/01/2023 2:30 AM EDT Pt alert and oriented, long intact, clear yellow urine , medicated twice for left epigastric pain with somewhat effect, TPN running at 83ml/hr, tolerating well, no sign of adverse reaction, pt remain NPO , sips with meds, pt in no acute distress, all safety measures in place, call light within reach. [facility]05-15-2024 Plan of care note* Care Plan - Mayda Balbuena LPN - 06/30/2023 10:12 PM EDT The patient's goals for the shift include feel better The clinical goals for the shift include pain control [facility] Work Phone: 1([phone]) 193-332205-15-2024 Consult note* Tomasa Ortiz MD - 06/30/2023 [...] for which she follows a surgeon at [facility]. They have been trying to advance [...] renal failure superimposed on chronic kidney disease ([facility]) (06/29/2023), Anxiety, Arthritis, Asthma ([facility]), CPAP (continuous positive airway pressure) dependence, Depression, Disease of thyroid gland, Dizziness, GERD (gastroesophageal reflux disease), H ypothyroidism, Irritable bowel syndrome, Median arcuate ligament syndrome ([facility]), PCOS (polycystic ovarian syndrome), PONV (postoperative nausea and vomiting), PUD (peptic ulcer disease), and Shortness of breath. She has no past medical history of Autoimmune disorder ([facility]), Bipolar disorder ([facility]), BPH (benign prostatic hyperplasia), Cerebral aneurysm ([facility]), Cervical cancer ([facility]), Cervical disc disease, Chronic kidney disease, CKD (chronic kidney disease), Cognitive decline, Crohn's disease ([facility]), Dementia ([facility]), Dysphagia, Endometrial cancer ([facility]), Esophageal cancer (Multi), Esophageal disease, ESRD (end stage renal disease) ([facility]), Fibromyalgia, primary, Fractures, Gastric cancer ([facility]), Gender dysphoria, GI (gastrointestinal bleed), Hemodialysis status ([facility]), Hernia, internal, H istory of peritoneal dialysis, HIV disease ([facility]), Immunocompromised ([facility]), Liver disease, Lumbar disc disease, Mastocytosis, MS (multiple sclerosis) ([facility]), Muscular dystrophy (Multi), Myasthenia gravis (Multi), Neuromuscular disorder (Multi), Ovarian cancer ([facility]), Pancreatitis ([facility]), Peptic ulcer disease, Prematurity ([facility]), PTSD (post-traumatic stress disorder), Schizophrenia (Multi), Seizure [...] Yellow, Dark-Yellow Appearance, Urine Clear Clear Specific Arjay, Urine 1.023 1.005 - 1.035 pH, Urine [...] IV contrast Result Date: 06/30/2023 Interpreted By: Artman, Episcopal, STUDY: CT ANGIO ABDOMEN PELVIS W AND/OR [...] Audie Gutierrez 06/30/2023 12:06 PM Dictation workstation: [id number] Vascular US mesenteric artery duplex complete Result Date: 06/30/2023 Preliminary Cardiology Report [facility] [id number] [place], [place] [id number] [facility] ART[facility]UP[facility] COMPLETE Patient Name: ABBEY Oneil Physician: [id number] Sherry Magaña MD Study Date: 06/30/2023 Ordering Provider: [id number] JAMIL GAVIN MRN/PID: [id number] Fellow: Technologist: Leia Degroot RVT Date of : 1990 Technologist 2: Gender: F Admission Status: Inpatient Location Performed: [facility] 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 COMPARISON: 03/16/2023 ACCESSION NUMBER(S): [id number] ORDERING CLINICIAN: DAVID VALADEZ TECHNIQUE: Axial CT [...] Fly West 06/29/2023 11:53 PM Dictation workstation: [id number] Assessment/Plan Abdominal pain FTT 33-year-old female with complicated history after gastric bypass surgery. She has been working witha surgeon at [facility] to advance her tube feeds and oral intake and decrease the TPN, however this has been unsuccessful. She was evaluated by Dr. Magaña here and there is no evidence of celiac or SMA stenosis or compression. There is an intestinal rehabilitation program through [facility] and recommend follow-up with that program. Cont TPN for nutrition and PO/tube feeds as tolerated in the meantime Tomasa Ortiz MD [facility] Work Phone: 1(205) 386-971505-15-2024 Plan of care note* Care Plan - [...] no hearing aids. Her PCP is in [facility]; and she uses [facility] on [address] in [facility]. She has a hx of gastric bypass, c/o abd pain. No anticipated discharge needs. DISCHARGE PLAN: HOME WITH [facility] Work Phone: 1(312) 781-896605-15-2024 Consult note* JAMA Solis - 06/30/2023 11:27 [...] nausea aftera gastric bypass surgery done at [facility] in which she has been hospitalized [...] 06/30/2023 BUN 14 06/30/2023 CREATININE 0.60 06/30/2023 [facility] Work Phone: 1(475) 234-179405-15-2024 Consult note* Tiffanie Galvan Marysol, PERIOPERATIVE ASSISTANT-FIRE CONTROL ASSISTANT - 06/30/2023 8:31 AM EDTAssociated Order(s): IP CONSULT TO VASCULAR SURGERY Reason for Consult Mid epigastric abdominal pain History Of Present Illness This is a 33-year-old female with past medical history of chronic abdominal pain, PCOS, PUD, depression, GERD, IBS, obesity (status post laparoscopic sleeve gastrectomy in August [address] Ku qdnFwit-jc-C gastric bypass 01/29/[address] Kat) and median arcuate ligament syndrome who presented to the emergency department for further evaluation of mid epigastric abdominal pain and nausea. Jonh jose follows with GI and general surgery with the [facility] and is currently on TPN via [...] also spoke with her general surgeon at [facility] where patient was advised for referral to [facility] intestinal rehabilitation. Past Medical History [...] Insecurity: No Food Insecurity (06/07/2023) Received from [facility] Hunger Vital Sign Worried About Running Out of Food in the Last Year: Never true Ran Out of Food in the Last Year: Never true Transportation Needs: No Transportation Needs (06/07/2023) Received from [facility] PRAPARE - Transportation Lack of Transportation (Medical): No Lack of Transportation (Non-Medical): No Physical Activity: Insufficiently Active (10/28/2022) Received from [facility] Exercise Vital Sign Days of Exercise per Week: 4 days Minutes of Exercise per Session: 30 min Stress: Stress Concern Present (10/28/2022) Received from [facility] [employer] - Occupational Stress Questionnaire Feeling of Stress : To some extent Social Connections: Socially Integrated (10/28/2022) Received from [facility] Social Connection and Isolation Panel [NHANES] Frequency of Communication with Friends and Family: More than three times a week Frequency of Social Gatherings with Friends and Family: Once a week Attends Jew Services: 1 to 4 times per year Active Member of Clubs or Organizations: Yes Attends Club or Organization Meetings: More than 4 times per year Marital Status: Intimate Partner Violence: Not on file Housing Stability: Low Risk (06/07/2023) Received from [facility] Housing Stability Vital Sign Unable [...] Yellow, Dark-Yellow Appearance, Urine Clear Clear Specific Arjay, Urine 1.023 1.005 - 1.035 pH, Urine [...] INDICATION: Signs/Symptoms:Abdominal pain. COMPARISON: 03/16/2023 ACCESSION NUMBER(S): [id number] ORDERING CLINICIAN: DAVID VALADEZ TECHNIQUE: Axial CT [...] Fly West 06/29/2023 11:53 PM Dictation workstation: [id number] Physical exam Constitutional: Alert and oriented to [...] workup for episodes of hypoglycemia [facility] Work Phone: 1(433) 651-303105-15-2024 Emergency department Note* Carla Alejo LPN - 06/30/2023 6:43 AM EDT Patient in gown at this time no c/o pain or discomfort no needs made known at this time Patient sleeping, chest rises and falls at equal intervals and patient takes breaths. Responds verbaly to calling of name and acknowledges this nurses presence in room Carla Alejo LPN 06/30/[address] [facility]05-15-2024 Emergency department Note* Carla Alejo LPN [...] renal failure superimposed on chronic kidney disease ([facility]) 06/29/2023 Anxiety Arthritis Asthma ([facility]) CPAP (continuous positive airway pressure) dependence Depression Dizziness GERD (gastroesophageal reflux disease) Hypothyroidism Irritable bowel syndrome with constipation Median arcuate ligament syndrome ([facility]) PCOS (polycystic ovarian syndrome) PONV (postoperative nausea [...] interpretation: Sinus rhythm 59 bpm normal axis ID interval 140 QTc 453 no ectopy or [...] physician verbal order Carla Alejo LPN 06/29/23 9122 documented in this [facility] Work Phone: 1(841) 413-760605-15-2024 Emergency department Note* Carla Alejo LPN - 06/30/2023 5:48 AM EDT Patient vitals taken, labs drawn and sent and patient medicated for pain , vitals taken and charted, no c/o discomfort or other needs at this time Carla Alejo LPN 06/30/23 3695 [facility] Work Phone: [phone] 459-474905-15-2024 History and physical note* Baldomero Woodard MD - 06/30/2023 2:40 AM EDT History Of Present Illness Abbey Garcia is a 33 y.o. female presenting with 2-year history of abdominal pain and nausea after a gastric bypass surgery done at [facility] she has been hospitalized multiple times for this. She has a combination gastric tube jejunostomy tube which is supposed to be used for tube feeds she is on TPN. She has a surgeon at [facility] but she also sees Dr. Magaña [...] get her nausea under control with Reglan oslnd-fpd-eggqu will consult general surgery to help with this complicated acute on chronic situation will order subcu heparin IV Protonix will make sure her gastric tube in her J- tube gets flushed. 3 times a day will order most of her home meds the way she takes them at home either by mouth or for through the J-tube. Baldomero Woodard MD [facility] Work Phone: [phone]) 811-825405-15-2024 History and physical note* Baldomero Woodard MD - 06/30/2023 2:40 AM EDT History Of Present Illness Abbey Garcia is a 33 y.o. female presenting with 2-year history of abdominal pain and nausea after a gastric bypass surgery done at [facility] she has been hospitalized multiple times for this. She has a combination gastric tube jejunostomy tube which is supposed to be used for tube feeds she is on TPN. She has a surgeon at [facility] but she also sees Dr. Magaña [...] get her nausea under control with Reglan hmakc-szf-yyimh will consult general surgery to help with [...] Woodard MD documented in this [facility] Work Phone: 1(293) 972-471505-14-2024 Emergency department Note* Carla Alejo LPN - 06/29/2023 8:57 PM EDT Assumed care of patient , labs drawn originally while tpn was attached and running , blood glucose redone via fingerstick with result of 117 and cbc/bmp reordered STAT , drawn and sent to lab Carla Alejo LPN 06/29/232057 [facility] Work Phone: 1(857) 784-327505-14-2024 Emergency department Note* Carla Alejo LPN - 06/29/2023 5:37 PM EDT medications held at this time per ED physician verbal order Carla Alejo LPN 06/29/23 1335 [facility] Work Phone: 1([phone]) 998-512305-14-2024 Physician Emergency department Note* David Wrencatherine, - 06/29/2023 5:37 PM EDT HPI Chief [...] renal failure superimposed on chronic kidney disease ([facility]) 06/29/2023 Anxiety Arthritis Asthma ([facility]) CPAP (continuous positive airway pressure) dependence Depression Dizziness GERD (gastroesophageal reflux disease) Hypothyroidism Irritable bowel syndrome with constipation Median arcuate ligament syndrome ([facility]) PCOS (polycystic ovarian syndrome) PONV (postoperative nausea [...] interpretation: Sinus rhythm 59 bpm normal axis ID interval 140 QTc 453 no ectopy or [...] Procedure Procedures David Valadez DO 06/30/23 0244 [facility] Work Phone: [phone]) 369-103005-07-2024 History of Present illness Narrative* Sherry Magaña MD - 06/22/2023 11:45 AM EDT Patient and I had a video conference as she was at home in [place] and I was at the [facility] vascular [place]. She reports doing poorly with bouts of [...] conference was 10 minutes documented [facility]Un[facility] Work Phone: 1(354) 262-732505-03-2024 Note [id number]#1.00[facility] History of Present illness Narrative* Breanna Stern, SLIM.BETH - 06/18/2023 10:00 AM EDT Assessment Postoperative [...] Kat Follow up with Dr Jacquelyn Stern APRN.FIRE CONTROL ASSISTANT documented in this encounterThe [facility] Nurse Note* Yaneth Mitchell MA - 06/18/2023 9:35 AM EDT What is the reason for your visit today? Post op PEG-J placement Who is your referring physician? Are you having poor oral intake? YES Have you had unintentional weight loss of 15 lbs/7 Kg in the last 3-6 months? NO Bowels: diarrhea Wound: Temperature: No Drains: No [facility]05-03-2024 Nurse Note* Yaneth Mitchell MA - 06/18/2023 9:35 AM EDT What is the reason for your visit today? Post op PEG-J placement Who is your referring physician? Are you having poor oral intake? YES Have you had unintentional weight loss of 15 lbs/7 Kg in the last 3-6 months? NO Bowels: diarrhea Wound: Temperature: No Drains: No documented in this encounterThe [facility]05-02-2024 Telephone encounter Note * Telephone [...] with scheduling provider for ketamine refill appt. [facility]05-02-2024 Miscellaneous Notes* Telephone Encounter - [...] for ketamine refill appt. documented in this encounterThe [facility] Of [facility]05-02-2024 Telephone encounter Note * Telephone Encounter - Serena Neff - 06/17/2023 11:40 AM EDT Phoned Malka back with Dr. Kat's response. He will not be managing patient's TPN. Malka advised that she arranged for hospitalist to manage. Serena Neff OPTIMIZATION MANAGER Scenic Designer for Dr. Kat [facility]05-02-2024 Miscellaneous Notes* Telephone Encounter - Serena Neff - 06/17/2023 11:40 AM EDT Phoned Malka back with Dr. Kat's response. He will not be managing patient's TPN. Malka advised that she arranged for hospitalist to manage. Serena Neff OPTIMIZATION MANAGER Scenic Designer for Dr. Kat * Telephone Encounter - Dorita Manning - 06/15/2023 3:20 PM EDT Malka from [facility] calling asking if Dr Kat will follow patient for TPN. Physician there is discharging patient on TPN. CB# [phone] ext [phone] documented in this encounterThe [facility]04-30-2024 Telephone encounter Note * Telephone Encounter - Dorita Mnaning - 06/15/2023 3:20 PM EDT Malka from [facility] calling asking if Dr Kat will follow patient for TPN. Physician there is discharging patient on TPN. CB# [phone] ext [phone] [facility]04-30-2024 [id number] [facility]04-29-2024 Telephone encounter Note* Telephone Encounter - Stephanie Sumner DO - 06/14/2023 4:39 PM EDT Hospital Medicine Transfer Received page for transfer request from [facility] to [place]: Abbey Garcia is 33 year old female who presented with nausea, vomiting and worsening LUQ pain. Pt has complicated gastric surgery history and is currently doing TF via PEG for nutrition. Per [facility] pt is HDS and electrolytes are stable. Pt is requesting transfer to because that is where her care team is and states she only went to [facility] because they have short wait times. ED team gave IVF and IV pain meds which improved LUQ pain somewhat. Pts notified Dr Kat that she was going to ED. Reason for transfer: continuity of care Accepted to hospital medicine service at [place] Stephanie Sumner DO 4:39 PM [facility] Work Phone: [phone] 722-368904-29-2024 Miscellaneous Notes* Telephone Encounter - Stephanie Sumner DO - 06/14/2023 4:39 PM EDT Hospital Medicine Transfer Received page for transfer request from [facility] to [place]: Abbey Garcia is 33 year old female who presented with nausea, vomiting and worsening LUQ pain. Pt has complicated gastric surgery history and is currently doing TF via PEG for nutrition. Per [facility] pt is HDS and electrolytes are stable. Pt is requesting transfer to because that is where her care team is and states she only went to [facility] because they have short wait times. ED team gave IVF and IV pain meds which improved LUQ pain somewhat. Pts notified Dr Kat that she was going to ED. Reason for transfer: continuity of care Accepted to hospital medicine service at [place] Stephanie Sumner DO 4:39 PM documented in this encounterThe [facility]04-29-2024 Telephone encounter Note * Telephone Encounter - Serena Neff - 06/14/2023 3:31 PM EDT Phoned patient and to discuss ED admission today. Pt is being transferred from [facility] to [facility]. Patient complaining of worsening left sided [...] further questions at this time. Serena Neff OPTIMIZATION MANAGER Scenic Designer for Dr. Kat [facility]04-29-2024 Miscellaneous Notes* Telephone Encounter - Serena Neff - 06/14/2023 3:31 PM EDT Phoned patient and to discuss ED admission today. Pt is being [facility] to [facility]. Patient complaining of worsening left sided [...] further questions at this time. Serena Neff OPTIMIZATION MANAGER Scenic Designer for Dr. Kat documented in this encounterThe [facility] Of [facility]04-26-2024 Note [id number]#1.00[facility] 06-09-2023 NoteHNO ID: [id number] Author: PABLO LEBRON PSYD Service: ? Author Type: Psychologist Type: Progress Notes Filed: 06/09/2023 09:52 Note Text: Assessment was conducted virtually. Patient is a resident of [place], and completed the assessment virtually in [place]. Psychologist is licensed and stationed in [place]. 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 Approximately 45 minutes were spent with the patient doing therapy. Pablo Lebron [facility] History of Present illness Narrative* Pablo Lebron PSYD - 06/09/2023 8:59 AM EDT Assessment was conducted virtually. Patient is a resident of [place], and completed the assessment virtually in [place]. Psychologist is licensed and stationed in [place]. Informed consent was discussed and verbal assent [...] Focused Psychotherapy, Supportive Therapy PROGRESS TO DATE: [facility] Progress: Stable Short Term Condition: Stable GOALS/OBJECTIVES/INTERVENTIONS: To identify and implement tools for effectively managing symptoms of anxiety, stress, and low mood. Approximately 45 minutes were spent with the patient doing therapy. Pablo Lebron PsyD documented in this encounterThe [facility]04-23-2024 [facility] 06-07-2023 [facility] HospitalCzfanzxz67-35-1453 NoteMer[facility]04-16-2024 NoteMer[facility]04-16-2024 History of Present illness Narrative* Vic Ramos MD - 06/01/2023 4:28 PM EDT TELEMEDICINE VISIT Modified Protocol for treatment of other conditions supportive of goal to minimize vulnerable patient exposure to Covid-19 [facility] Emergency Consented for encounter Patient verified by name and Abbey Garcia [id number] 1990 Patient consents to virtual visit Patient located at home Dr. Ramos located at [facility] office SUBJECTIVE: The patient presents to [facility] Pain Management Department for pain [...] which included preparing to see the patient, ahrw-qf-itwh patient care, completing clinical documentation, obtaining and/or [...] MD June 01, 2023 documented in this encounterThe [facility]04-15-2024 Note [id number] 05-30-2023 Miscellaneous Notes* Telephone Encounter - Deacon Kat MD - 05/30/2023 10:16 AM EDT Significant constipation - no bm since Wednesday, a lot of rectal pressure. Tried her linzess, miralax. Recommended enema OTC + dulcolax suppository. Contact me if not improved. Deacon Kat MD documented in this encounterThe [facility]04-12-2024 Miscellaneous Notes* Telephone Encounter - Nabila Jackson [facility] - 05/28/2023 5:48 PM EDT ERx for Nutren sent to [facility] Home Delivery [facility] - [facility]. These orders are unable to be processed here, but may be eligible to fill using [facility] Home Care/Infusion Pharmacy at [place]. Please review and if appropriate, send forward for processing. Thank you! [facility] [phone] documented in this encounterThe [facility]04-12-2024 [facility] 05-28-2023 Miscellaneous Notes* Telephone Encounter - [...] and advise. Grecia Wallace documented in this encounterThe [facility]04-12-2024 [facility] 05-27-2023 NoteHNO ID: [id number] Author: EH KIMBALL RN Service: Nursing Author Type: Registered Nurse Type: Nursing Progress Note Filed: 05/27/2023 09:20 Note Text: Other: 0900 Pt verbalizes interest about bolus feeding. Geographical Historian made aware. [facility] [id number] NoteBaystate Noble HospitalFrrewknd01-55-5330 NoteTyler [place] [address]-09-2024 [place] [address]-08-2024 Note [id number] 05-22-2023 NoteBaystate Noble HospitalWabxctwg77-99-5122 NoteBaystate Noble HospitalIggspkaw80-49-2701 Note [facility] HospitalNxxwdfho98-09-5093 [facility]04-02-2024 Telephone encounter Note* Telephone Encounter - Itzel Hurley RN - 05/18/2023 9:25 AM EDT Images from the original note were not included. EGD images; please review [facility] EGD Report 05/12/2023 [facility]04-02-2024 Miscellaneous Notes* Telephone Encounter - [...] Please review thank you! documented in this encounterThe [facility] Of [facility]04-02-2024 Telephone encounter Note * Telephone Encounter - Silvina Brown - 05/18/2023 9:20 AM EDT Received records from [facility]. EGD dated 05/12/2023 Discharge Summary 05/11 to 05/14/2023 Ct Abdomen/Pelvis 05/11/2023 Please review thank you! [facility]04-01-2024 Hospital Discharge instructions Patient Education [...] at pharmacies and retail stores. Eat bland, oxbm-vy-boqkyk foods in small amounts as you are [...] and water are not available, use hand oyster picker. Make sure that everyone in your household washes their hands frequently. Take kkpj-wma-kcdnclp and prescription medicines only as told by [...] and water are not available, use hand oyster picker. Watch your condition for any changes and for signs of dehydration. Keep all follow-up visits. This is important. This information is not intended to replace advice given to you by your health care provider. Make sure you discuss any questions you have with your health care provider. Document Revised: 08/08/2021 Document Reviewed: 08/08/2021 [employer] Patient Education 2022 [employer]. Follow Up Care 05/17/2023 14:15:17 With:Jaquan Paula, [facility], [facility] Address: When:05/20/2023 [facility]04-01-2024 History of Present illness Narrative* Deacon Kat MD - 05/17/2023 2:40 PM EDT VIRTUAL VISIT PROGRESS NOTE This is a virtual visit using [employer] Zoom Video Visit. It required patient- provider interaction for the medical decision making as documented below. I have communicated my name and active licensure. The patient's identity and physical location wereverified at the time of this visit. Either the patient or their legal dealer compliance representative has been informed of the risks [...] PM -------- ORIGINAL REPORT -------- Dictation workstation: [id number] Impression Postsurgical changes from gastric bypass. No evidence for obstruction.. MACRO: none Signed by: Corie Garza 03/17/2023 5:00 PM Dictation workstation: [id number] Narrative Interpreted By: Corie Garza, STUDY: FL UPPER GI W DOUBLE CONTRAST W SMALL BOWEL FOLLOW THROUGH; 03/17/2023 4:40 pm INDICATION: Signs/Symptoms:abdominal pain. COMPARISON: None. ACCESSION NUMBER(S): [id number] ORDERING CLINICIAN: TIFFANIE MENDEZ TECHNIQUE: Multiple fluoroscopic spot images were obtained during a single contrast upper GI with KUB. Total fluoroscopy time: 1 minute 32 seconds Radiation exposure (Reference Air Kerma): 99.36 mGy Images: 2 spot images 7 series and 2 delayed AP views of the abdomen FINDINGS: Training Systems Officer images demonstrate postsurgical changes from previous Tan-en-Y [...] Corie Garza 03/16/2023 5:46 PM Dictation workstation: [id number] Narrative Interpreted By: Corie Garza, STUDY: CT ABDOMEN PELVIS W IV CONTRAST; 03/16/2023 5:27 pm INDICATION: Signs/Symptoms:abdominal pain - with oral and IV contrast. COMPARISON: None.. ACCESSION NUMBER(S): [id number] ORDERING CLINICIAN: TIFFANIE MENDEZ TECHNIQUE: Oral contrast [...] ER. Deacon Kat MD documented in this encounterThe [facility]04-01-2024 [facility] Evaluation + Plan noteExtracted from: Title:ED [...] Appointment Date:05/19/2023 10:40:00 AM Scheduled Provider:Jaquan Paula Location:[facility] Appointment Type: Hospital Follow Up w/TCM Appointment Date:07/13/2023 08:20:00 AM Scheduled Provider:OLGA PRAKASH PA-C Location:[facility] Appointment Type:URO Office Visit Appointment Date:08/04/2023 09:45:00 AM Scheduled Provider:Rajni Rouse MD Location:[facility] Appointment Type:URO Office Visit Diagnostic Tests Pending * Drug Screen Urine 05/17/23 Future Scheduled Tests Radiology* US Renal 06/10/22 [facility]03-29-2024 Evaluation + Plan noteExtracted from: Title:Discharge [...] bedtime) With When Contact Information Jaquan Paula, [facility], MED Additional Instructions: Follow up with surgeon Additional Instructions: Appointment has already been scheduled Cannabinoid Hyperemesis Syndrome Nausea and Vomiting, Adult, Qnfb-wp-Wlhm Extracted from: Title:Progress Note * Author:Rosalia Rivera MD Date:05/14/23 Impression and Plan This is a 33-year-old lady with past medical history of gastric sleeve surgery in July 2020, complicated by significant reflux switch to Tan-en-Y January 2022 at [facility], [facility] surgery February 2023 which reported helped her [...] Orders Sbsq Hospital Care/Day Moderate 35 Minutes 89371 2. Intractable abdominal pain (R10.9: Unspecified abdominal [...] Ordered: Sbsq Hospital Care/Day Moderate 35 Minutes [id number] 2. Intractable abdominal pain (R10.9: Unspecified abdominal [...] 2022 Author:Kuldip Arcos Jr, DO Date:05/12/23 Plan [place] [employer] of Anesthesiologists (ASA) physical status classification: [...] Ordered: Initial Hospital Care/Day Moderate [id number] in Status 2. Intractable abdominal pain [...] Vital Signs Weight Extracted from: Title:ED Note Author:Mauricio López PA-C te:05/12/23 Intractable abdominal pain ( R10.9: Unspecified [...] Appointment Date:05/19/2023 10:40:00 AM Scheduled Provider:Jaquan Paula Location:[facility] Appointment Type: Hospital Follow Up w/TCM Appointment Date:07/13/2023 08:20:00 AM Scheduled Provider:OLGA PRAKASH PA-C Location:[facility] Appointment Type:URO Office Visit Appointment Date:08/04/2023 09:45:00 AM Scheduled Provider:Rajni Rouse MD Location:[facility] Appointment Type:URO Office Visit Diagnostic Tests Pending * Copper Level 05/14/23 * HIV Screen 4th Generation wRfx 05/14/23 * Acute Hepatitis A B C Panel 05/14/23 Future Scheduled Tests Radiology* US Renal 06/10/22 [facility]03-29-2024 Hospital Discharge instructions Patient Education 05/14/2023 [...] as coffee and soda. Take and apply huzr-hzo-licjloe and prescription medicines only as told by [...] provider. Document Revised: 06/01/2022 Document Reviewed: 06/01/2022 [employer] Patient Education 2022 Zuvvu. 05/14/2023 11:56:24 Nausea and Vomiting, Adult, Cven-oh-Rnnm Nausea and Vomiting, Adult Nausea is feeling [...] fruit juice). ?Low-calorie sports drinks. Eat bland, vdtn-sy-sgoewe foods in small amounts as you are able, such as: ?Bananas. ?Applesauce. ?Rice. ?Low-fat (lean) meats. ?[place]. ?Crackers. Avoid drinking fluids that have a lot of sugar or caffeine in them. This includes energy drinks, sports drinks, and soda. Avoid alcohol. Avoid spicy or fatty foods. General instructions Take wplh-usp-mrzakkt and prescription medicines only as told by your doctor. Drink enough fluid to keep your pee (urine) pale yellow. Wash your hands often with soap and water for at least 20 seconds. If you cannot use soap and water, use hand oyster picker. Make sure that everyone in your home [...] your doctor about eating and drinking. Take vube-seq-pbatpeu and prescription medicines only as told by your doctor. Contact your doctor if your symptoms get worse or you have new symptoms. Keep all follow-up visits. This information is not intended to replace advice given to you by your health care provider. Make sure you discuss any questions you have with your health care provider. Document Revised: 08/08/2021 Document Reviewed: 08/08/2021 [employer] Patient Education 2022 Zuvvu. Follow Up Care 05/12/2023 09:23:09 With:Patient has [facility] Home Health in place Address:Unknown When: Unknown With:Jaquan Paula FAM, [facility] Address: [address] [place] [address] [place] [address] Business (1) When: Unknown With:Follow up with surgeon Address: When: Unknown Comments:Appointment has already been scheduled [facility]03[facility]29[facility]Result Comment: Electronically Signed By: Moncho Trejo DO\.br\Date and Time Signed: 05/14/23 12:06 [id number] [facility]:Result Comment: Electronically Signed By: Moncho Trejo DO.br\Date and Time Signed: 05/12/23 12:59 [id number] Hospital Discharge instructions Patient Education 05/11/2023 16:46:23 Abdominal Pain, Adult, Hqxv-om-Ywrm Abdominal Pain, Adult Many things can cause belly (abdominal) pain. Most times, belly pain is not dangerous. Many cases of belly pain can be watched and treated at home. Sometimes, though, belly pain is serious. Your doctor will try to find the cause of your belly pain. Follow these instructions at home: Medicines Take odgh-lyr-ewpflan and prescription medicines only as told by [...] your belly pain for any changes. Take kpem-ibz-isxhoaw and prescription medicines only as told by [...] provider. Document Revised: 06/12/2019 Document Reviewed: 06/12/2019 [employer] Patient Education 2022 Zuvvu. Follow Up Care 05/11/2023 11:48:15 With:Miguel JOHNSON, APRYL Bean, [facility] Address: [address] [place] [address], [address] [phone] When:2 to 4 days Comments:Call today to schedule your follow upReturn to ED if symptoms worsen [facility]03-26-2024 Evaluation + Plan noteExtracted from: Title:ED [...] Appointments Appointment Date:07/13/2023 08:20:00 AM Scheduled Provider:OLGA PRAKASH PA-C Location:[facility] Appointment Type:URO Office Visit Appointment Date:08/04/2023 09:45:00 AM Scheduled Provider:Nasim JOHNSON, Rajni Ballestreos Location:[facility] Appointment Type:URO Office Visit Future Scheduled Tests Radiology* US Renal 06/10/22 [facility]03-25-2024 Miscellaneous Notes* Telephone Encounter - Serena Neff - 05/10/2023 2:51 PM EDT Patient scheduled with Dr. Kat on 05/11. Serena Neff OPTIMIZATION MANAGER Scenic Designer for Dr. Kat * Telephone Encounter - Serena eNff - 05/10/2023 11:16 AM EDT Returned patient's [...] be seen by Dr. Kat. Serena Neff OPTIMIZATION MANAGER Scenic Designer for Dr. Kat * Telephone Encounter - Dorita Manning - 05/10/2023 10:44 AM EDT Patients calling concerned about Archer. She has been in the ER 2 times in the last 4 days. She was told to speak to DR who originally put her on TPN to discuss getting back on it. CB# [phone] documented in this encounterThe [facility]03-24-2024 Hospital Discharge instructions Patient Education [...] Follow these instructions at home: Medicines Take oddq-osv-fodojva and prescription medicines only as told by [...] Watch your condition for any changes. Take mssa-jqh-vnurhyz and prescription medicines only as told by [...] provider. Document Revised: 03/22/2020 Document Reviewed: 06/12/2019 [employer] Patient Education 2022 Zuvvu. Follow Up Care 05/09/2023 11:38:04 With:Earnest Oakes Address: [address], [facility] [address] [phone] Business (1) When:05/12/2023 15:51:27 With:Jon Rivera Address: [address], [facility] [address] [address]- [phone] Business (1) When:05/12/2023 15:51:00 With:Jaquan Morrow Address: [address] [place], [place] [phone]- Business (1) When:05/12/2023 15:50:53 [facility]03-24-2024 Evaluation + Plan noteExtracted from: Title:ED [...] Appointments Appointment Date:07/13/2023 08:20:00 AM Scheduled Provider:OLGA PRAKASH PA-C Location:[facility] Appointment Type:URO Office Visit Appointment Date:08/04/2023 09:45:00 AM Scheduled Provider:Rajni Rouse MD Location:[facility] Appointment Type:URO Office Visit Future Scheduled Tests Radiology* US Renal 06/10/22 [facility]03-22-2024 Miscellaneous Notes* Telephone Encounter - Yvette Morgan - 05/07/2023 11:07 AM EDT Procedure canceled * Telephone Encounter - Santa Hart RN - 05/07/2023 10:47 AM EDT Patient is keeping 07/20/2023 Upper endoscopy appointment and wishes to cancel 05/14/2023 EGD appointment. Scheduling notified. documented in this encounterThe [facility]03-21-2024 Hospital Discharge instructions Patient Education [...] Follow these instructions at home: Medicines Take tiiv-ivl-asowfsz and prescription medicines only as told by [...] Watch your condition for any changes. Take xrbl-dbk-ihnxare and prescription medicines only as told by [...] provider. Document Revised: 03/22/2020 Document Reviewed: 06/12/2019 [employer] Patient Education 2022 Zuvvu. Follow Up Care 05/06/2023 15:41:48 With:Follow-up with your surgeon at soon as possible, call the office tomorrow to schedule an appointment. Return to the ER with any new or worsening symptoms. Address:Unknown When: Unknown With:Jaquan Morrow Address:Unknown When:Within 3 Day(s) [facility]03-13-2024 History of Present illness Narrative* Kasie [...] race variable for the IDMS-Traceable creatinine methods. [email or web address].[email or web address]/content//[email or web address] Calcium 8.5 - 10.4 mg/dL 8.7 Albumin [...] the body of the stomach FINAL DIAGNOSIS [facility] GREENE LAB STOMACH ANTRUM, BIOPSY: Erosive chronic active [...] healthy appearing mucosa. This was traversed. The khzqi-yt-loyxrgh limb was characterized by healthy appearing mucosa. [...] healthy appearing mucosa. This was traversed. The axymy-tm-hnuaikf limb was characterized by healthy appearing mucosa. The jejunojejunal anastomosis was characterized by healthy appearing mucosa. The examined jejunum was normal. Impression: - Normal esophagus. - Tan-en-Y gastrojejunostomy with gastrojejunal anastomosis characterized by healthy appearing mucosa. No ulceration or stenosis. - Normal examined jejunum. - No specimens collected. Upper GI SERIES 03/17/23 FINDINGS: Training Systems Officer images demonstrate postsurgical changes from previous Tan-en-Y [...] destructive bone lesions. CT ABD/PEL 12/06/22 ABDOMEN: Training Systems Officer (topogram) images: No additional findings. Images of [...] which included preparing to see the patient, elny-df-cofi patient care, completing clinical documentation, obtaining and/or reviewing separately obtained history, performing a medically appropriate examination, counseling and educating the pat ient/family/caregiver, and ordering medications, tests, or procedures. Kasie Avalos MD April 22, 2023 2:06 PM documented in this encounterThe [facility]03-13-2024 [facility]Mer[facility]02-21-2024 History of Present illness Narrative* Sherry [...] by telephone. documented in this encounterUniversity Hospitals Ahuja [facility] Center Work Phone: 1(813) 341-787402-21-2024 NoteMer[facility]02-21-2024 History of Present illness Narrative* Deacon Kat MD - 04/07/2023 1:48 PM EST VIRTUAL VISIT PROGRESS NOTE This is a virtual visit using [employer] Zoom Video Visit. It required patient- provider interaction for the medical decision making as documented below. I have communicated my name and active licensure. The patient's identity and physical location wereverified at the time of this visit. Either the patient or their legal dealer compliance representative has been informed of the risks [...] She had a recent EGD through the [employer] system which I was able to obtain [...] Low Deacon Kat MD documented in this encounterThe [facility]02-16-2024 Hospital Discharge instructions Patient Education [...] Follow these instructions at home: Medicines Take vfsf-djj-evsnoxg and prescription medicines only as told by [...] provider. Document Revised: 04/17/2021 Document Reviewed: 04/17/2021 [employer] Patient Education 2022 Zuvvu. 04/02/2023 17:02:34 Abdominal Pain, Adult Abdominal Pain, [...] Follow these instructions at home: Medicines Take mjjx-doh-wtelgef and prescription medicines only as told by [...] Watch your condition for any changes. Take jexz-yns-xvyhzfa and prescription medicines only as told by [...] provider. Document Revised: 03/22/2020 Document Reviewed: 06/12/2019 [employer] Patient Education 2022 Zuvvu. Follow Up Care 04/02/2023 10:53:50 With:Jon Rivera Address: [address], [address] [phone] Business (1) When:04/05/2023 16:23:56 Comments:Make sure to follow-up with your primary doctor and your surgeon. Follow-up with Dr. Rivera for the GI. Return to the emergency room if your pain gets worse or any new symptoms. With:Jaquan Morrow Address:Unknown When:Within 3 Day(s) [facility]02-16-2024 Evaluation + Plan noteExtracted from: Title:ED Note Author:Jose Ramon Martinez, Ashutosh Arroyo te:04/02/23 1. Chest pain (R07.9: Chest pain, unspecified) 2. Abdominal pain (R10.9: Unspecified abdominal pain) Orders: dicyclomine, 20 mg = 2 cap(s), Oral, QID, # 20 cap(s), Refills(s) 0, Pharmacy: [facility]/pharmacy #[id number], 167, cm, 04/02/23 11:01:00 EST, Height/Length Dosing, [...] nausea/vomiting, # 16 tab(s), Refills(s) 0, Pharmacy: [facility]/pharmacy #[id number], 167, cm, 04/02/23 11:01:00 EST, [...] day(s), # 560 mL, Refills(s) 0, Pharmacy: [facility]/pharmacy #[id number], 167, cm, 04/02/23 11:01:00 EST, [...] Date:08/04/2023 09:45:00 AM Scheduled Provider:Rajni Rouse MD Location:[facility] Appointment Type:URO Office Visit Future Scheduled Tests Radiology* US Renal 06/10/22 [facility]02-03-2024 Nurse Note* Stacie Blanco RN - 03/20/2023 4:41 PM EST Patient discharged home to care of self and . Patient transported to front entrance via wheelchair. No injuries, bleeding or distress noted. [facility]02-03-[facility] Nurse Note* Stacie Blanco RN [...] of NG tube. Order received. Waiting on auto electrical technician to verify placement per order. Will [...] per to re insert NG tube and circus supervisor to low suction. Will re attempt with patients consent. * Cathy Madera RN - 03/17/2023 12:06 PM EST Patient transported to Xray for placement of NG. Patient off unit. * Cathy Madera RN - 03/17/2023 11:44 AM EST This nurse notified supply chain tech that patient had NG tube placed and needed Xray for placement verification. This nurse messaged Rosa YUN to notify her that NG tube was placed and needed separate order for NG tube placement per supply chain tech. Order received. Will continue to monitor patient [...] to monitor patient to ensure patient safety. ELL * Cathy Madera RN - 03/17/2023 9:15 AM EST Patient arrived to unit with and father at bedside. [facility] Patient alert and oriented x 4. [...] patient safety. documented in this encounterUniversity Hospitals Ahuja [facility] Center Work Phone: 1(470) 740-564102-03-2024 Nurse Note* Stacie Blanco RN - 03/20/2023 4:01 PM EST Provided/explained discharge instructions and summary. Provided opportunity for questions and discussion. No complaints or concerns communicated. [facility] Work Phone: 1(684) 362-246502-03-2024 History of Present illness Narrative* Nathalie Tyler RN - 03/20/2023 3:35 PM EST Patient is medically ready for discharge. Per previous home care assistant, plan for home with home health care. Message to provider that external home care referral is needed. UPDATE 1549: Discharging provider indicates no continued skilled needs for home care. Per bedside nurse May, patient is in agreement that she no longer needs home health care services. Referral to [facility] updated and closed. Patient will discharge no with no reported skilled needs. * Lizz Brunson APRN-FIRE CONTROL ASSISTANT - 03/20/2023 11:40 AM EST Abbey Garcia [...] Tomasa Keyes RN 03/19/2023 1431 Procedure Location [place] [address] [place] [address] Referring Provider Generic Provider [place] No address on file Procedure Provider No [...] 03/17/2023 done at 2:05 p.m. ACCESSION NUMBER(S): [id number] ORDERING CLINICIAN: TIFFANIE MENDEZ TECHNIQUE: AP erect view of the chest FINDINGS: The nasogastric tube has not ch anged in placement with the tip seen within the proximal thoracic esophagus. Heart and mediastinum are normally visualized. Lungs are clear. Distal tip of nasogastric tube in proximal thoracic esophagus just above the aortic arch. Signed by: Nya Ahmadi 03/17/2023 8:19 PM Dictation workstation: [id number] FL upper GI w double contrast w small bowel follow through Result Date: 03/17/2023 Interpreted By: Corie Garza, STUDY: FL UPPER GI W DOUBLE CONTRAST W SMALL BOWEL FOLLOW THROUGH; 03/17/2023 4:40 pm INDICATION: Signs/Symptoms:abdominal pain. COMPARISON: None. ACCESSION NUMBER(S): [id number] ORDERING CLINICIAN: TIFFANIE MENDEZ TECHNIQUE: Multiple fluoroscopic spot images were obtained during a single contrast upper GI with KUB. Total fluoroscopy time: 1 minute 32 seconds Radiation exposure (Reference Air Kerma): 99.36 mGy Images: 2 spot images 7 series and 2 delayed AP viewsof the abdomen FINDINGS: Training Systems Officer images demonstrate postsurgical changes from previous Tan-en-Y [...] Corie Garza 03/17/2023 5:00 PM Dictation workstation: [id number] XR chest 1 view Result Date: 03/17/2023 Interpreted By: Corie Garza, STUDY: XR CHEST 1 VIEW; 03/17/2023 12:41 pm INDICATION: Signs/Symptoms:Status post NG tube placement. COMPARISON: None available ACCESSION NUMBER(S): [id number] ORDERING CLINICIAN: TIFFANIE MENDEZ FINDINGS: RESULT: Nasogastric [...] Corie Garza 03/17/2023 4:19 PM Dictation workstation: [id number] CT abdomen pelvis w IV contrast Result Date: 03/16/2023 Interpreted By: Corie Garza, STUDY: CT ABDOMEN PELVIS W IV CONTRAST; 03/16/2023 5:27 pm INDICATION: Signs/Symptoms:abdominal pain - with oral and IV contrast. COMPARISON: None.. ACCESSION NUMBER(S): [id number] ORDERING CLINICIAN: TIFFANIE MENDEZ TECHNIQUE: Oral contrast [...] Corie Garza 03/16/2023 5:46 PM Dictation workstation: [id number] XR chest 1 view Result Date: 03/06/2023 Interpreted By: Sara Zarate, STUDY: XR CHEST 1 VIEW; 03/06/2023 7:32 am INDICATION: Signs/Symptoms:post op COMPARISON: None ACCESSION NUMBER(S): [id number] ORDERING CLINICIAN: JASON FOSTER TECHNIQUE: Frontal and [...] Sara Zarate 03/06/2023 1:48 PM Dictation workstation: [id number] XR chest 1 view Result Date: 03/05/2023 Interpreted By: Baldomero Hendrickson, STUDY: XR CHEST 1 VIEW; 03/05/2023 3:11 pm INDICATION: CLINICAL INFORMATION: Signs/Symptoms:NG tube placement confirmation. COMPARISON: 03/05/2019 at 745 hours ACCESSION NUMBER(S): [id number] ORDERING CLINICIAN: DESMOND TIRADO TECHNIQUE: Portable chest [...] Baldomero Hendrickson 03/05/2023 3:31 PM Dictation workstation: [id number] XR chest 1 view Result Date: 03/05/2023 Interpreted By: Nya Ahmadi, STUDY: XR CHEST 1 VIEW 03/05/2023 7:51 am INDICATION: Signs/Symptoms:confirm line placement COMPARISON: None available. ACCESSION NUMBER(S): [id number] ORDERING CLINICIAN: SERENA GEORGE TECHNIQUE: AP erect view of the chest FINDINGS: Right arm PICC line terminates in the SVC. There is no pneumothorax. The heart, mediastinum, and lungs are normally visualized. Right arm PICC line terminating in SVC without pneumothorax. No acute cardiopulmonary disease. Signed by: Nya Ahmadi 03/05/2023 7:54 AM Dictation workstation: [id number] Assessment/Plan Principal Problem: Abdominal pain NV, Epigastric [...] with questions or concerns JAMA Petersen * Jason JAMA Ramos - 03/19/2023 3:58 PM EST Abbey Garcia [...] Tomasa Keyes RN 03/19/2023 1431 [facility] [address] [facility] [id number] Referring Provider Generic Provider [place] No address on file Procedure Provider No name on file XR chest 1 view Result Date: 03/17/2023 Interpreted By: Nya Ahmadi, STUDY: XR CHEST 1 VIEW 03/17/2023 7:09 pm INDICATION: Signs/Symptoms:S/p NG placement COMPARISON: 03/17/2023 done at 2:05 p.m. ACCESSION NUMBER(S): [id number] ORDERING CLINICIAN: TIFFANIE MENDEZ TECHNIQUE: AP erect view of the chest FINDINGS: The nasogastric tube has not ch anged in placement with the tip seen within the proximal thoracic esophagus. Heart and mediastinum are normally visualized. Lungs are clear. Distal tip of nasogastric tube in proximal thoracic esophagus just above the aortic arch. Signed by: Nya Ahmadi 03/17/2023 8:19 PM Dictation workstation: [id number] FL upper GI w double contrast w small bowel follow through Result Date: 03/17/2023 Interpreted By: Corie Garza, STUDY: FL UPPER GI W DOUBLE CONTRAST W SMALL BOWEL FOLLOW THROUGH; 03/17/2023 4:40 pm INDICATION: Signs/Symptoms:abdominal pain. COMPARISON: None. ACCESSION NUMBER(S): [id number] ORDERING CLINICIAN: TIFFANIE MENDEZ TECHNIQUE: Multiple fluoroscopic spot images were obtained during a single contrast upper GI with KUB. Total fluoroscopy time: 1 minute 32 seconds Radiation exposure (Reference Air Kerma): 99.36 mGy Images: 2 spot images 7 series and 2 delayed AP viewsof the abdomen FINDINGS: Training Systems Officer images demonstrate postsurgical changes from previous Tan-en-Y [...] Corie Garza 03/17/2023 5:00 PM Dictation workstation: [id number] XR chest 1 view Result Date: 03/17/2023 Interpreted By: Corie Garza, STUDY: XR CHEST 1 VIEW; 03/17/2023 12:41 pm INDICATION: Signs/Symptoms:Status post NG tube placement. COMPARISON: None available ACCESSION NUMBER(S): [id number] ORDERING CLINICIAN: TIFFANIE MENDEZ FINDINGS: RESULT: Nasogastric [...] Corie Garza 03/17/2023 4:19 PM Dictation workstation: [id number] CT abdomen pelvis w IV contrast Result Date: 03/16/2023 Interpreted By: Corie Garza, STUDY: CT ABDOMEN PELVIS W IV CONTRAST; 03/16/2023 5:27 pm INDICATION: Signs/Symptoms:abdominal pain - with oral and IV contrast. COMPARISON: None.. ACCESSION NUMBER(S): [id number] ORDERING CLINICIAN: TIFFANIE MENDEZ TECHNIQUE: Oral contrast [...] Corie Garza 03/16/2023 5:46 PM Dictation workstation: [id number] XR chest 1 view Result Date: 03/06/2023 Interpreted By: Sara Zarate, STUDY: XR CHEST 1 VIEW; 03/06/2023 7:32 am INDICATION: Signs/Symptoms:post op COMPARISON: None ACCESSION NUMBER(S): [id number] ORDERING CLINICIAN: JASON FOSTER TECHNIQUE: Frontal and [...] Sara Zarate 03/06/2023 1:48 PM Dictation workstation: [id number] XR chest 1 view Result Date: 03/05/2023 Interpreted By: Baldomero Hendrickson, STUDY: XR CHEST 1 VIEW; 03/05/2023 3:11 pm INDICATION: CLINICAL INFORMATION: Signs/Symptoms:NG tube placement confirmation. COMPARISON: 03/05/2019 at 745 hours ACCESSION NUMBER(S): [id number] ORDERING CLINICIAN: DESMOND TIRADO TECHNIQUE: Portable chest [...] Baldomero Hendrickson 03/05/2023 3:31 PM Dictation workstation: [id number] XR chest 1 view Result Date: 03/05/2023 Interpreted By: Nya Ahmadi, STUDY: XR CHEST 1 VIEW 03/05/2023 7:51 am INDICATION: Signs/Symptoms:confirm line placement COMPARISON: None available. ACCESSION NUMBER(S): [id number] ORDERING CLINICIAN: SERENA GEORGE TECHNIQUE: AP erect view of the chest FINDINGS: Right arm PICC line terminates in the SVC. There is no pneumothorax. The heart, mediastinum, and lungs are normally visualized. Right arm PICC line terminating in SVC without pneumothorax. No acute cardiopulmonary disease. Signed by: Nya Ahmadi 03/05/2023 7:54 AM Dictation workstation: [id number] Assessment/Plan -Abdominal pain/nausea -Median arcuate ligament syndrome, [...] deferto her bariatric surgeon, Dr. Morel, at [place]. Will sign off. Kurt Matos MD * Anam Davila RN - 03/19/2023 3:11 PM EST Abbey Garcia is a 32 y.o. female on day 3 of admission presenting with Abdominal pain. Met with patient at bedside. Patient states she has been active with [facility] in [place] . Patient would like to continue HHC with [facility]. Referral was sent. EGD scheduled today. Has NG in place. [facility] is able to accept for STEF. [...] her usual [facility] surgeons after DC. 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 MVI, B12. I spent 15 minutes in the professional and overall care of this patient. Shelley Nash, SLIM-FIRE CONTROL ASSISTANT * JAMA Smith - 03/19/2023 10:09 AM [...] 03/17/2023 done at 2:05 p.m. ACCESSION NUMBER(S): [id number] ORDERING CLINICIAN: TIFFANIE MENDEZ TECHNIQUE: AP erect view of the chest FINDINGS: The nasogastric tube has not changed in placement with the tip seen within the proximal thoracic esophagus. Heart and mediastinum are normally visualized. Lungs are clear. Impression: Distal tip of nasogastric tube in proximal thoracic esophagus just above the aortic arch. Signed by: Nya Ahmadi 03/17/2023 8:19 PM Dictation workstation: [id number] FL upper GI w double contrast w small bowel follow through Narrative: Interpreted By: Corie Garza, STUDY: FL UPPER GI W DOUBLE CONTRAST W SMALL BOWEL FOLLOW THROUGH; 03/17/2023 4:40 pm INDICATION: Signs/Symptoms:abdominal pain. COMPARISON: None. ACCESSION NUMBER(S): [id number] ORDERING CLINICIAN: TIFFANIE MENDEZ TECHNIQUE: Multiple fluoroscopic spot images were obtained during a single contrast upper GI with KUB. Total fluoroscopy time: 1 minute 32 seconds Radiation exposure (Reference Air Kerma): 99.36 mGy Images: 2 spot images 7 series and 2 delayed AP views of the abdomen FINDINGS: Training Systems Officer images demonstrate postsurgical changes from previous Tan-en-Y [...] Corie Garza 03/17/2023 5:00 PM Dictation workstation: [id number] XR chest 1 view Narrative: Interpreted By: Corie Garza, STUDY: XR CHEST 1 VIEW; 03/17/2023 12:41 pm INDICATION: Signs/Symptoms:Status post NG tube placement. COMPARISON: None available ACCESSION NUMBER(S): [id number] ORDERING CLINICIAN: TIFFANIE MENDEZ FINDINGS: RESULT: Nasogastric [...] Corie Garza 03/17/2023 4:19 PM Dictation workstation: [id number] Physical Exam Vitals and nursing note reviewed. [...] her usual [facility] surgeons after DC. 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 MVI, B12. I spent 15 minutes in [...] glasses. Pts PCP is Dr Marino with [email or web address], prescriptions filled through [facility] in [place]. Uncertain if pt will have dc needs. Her last admit she went home with [facility]. TCC to follow ongoing medical workup. Safe dc plan not secured-TCC to follow Sabina Hurd MSSA, ORTHOPEDIC TECH * JAMA Smith - 03/18/2023 10:57 AM [...] 03/17/2023 done at 2:05 p.m. ACCESSION NUMBER(S): [id number] ORDERING CLINICIAN: TIFFANIE MENDEZ TECHNIQUE: AP erect view of the chest FINDINGS: The nasogastric tube has not changed in placement with the tip seen within the proximal thoracic esophagus. Heart and mediastinum are normally visualized. Lungs are clear. Impression: Distal tip of nasogastric tube in proximal thoracic esophagus just above the aortic arch. Signed by: Nya Ahmadi 03/17/2023 8:19 PM Dictation workstation: [id number] FL upper GI w double contrast w small bowel follow through Narrative: Interpreted By: Corie Garza, STUDY: FL UPPER GI W DOUBLE CONTRAST W SMALL BOWEL FOLLOW THROUGH; 03/17/2023 4:40 pm INDICATION: Signs/Symptoms:abdominal pain. COMPARISON: None. ACCESSION NUMBER(S): [id number] ORDERING CLINICIAN: TIFFANIE MENDEZ TECHNIQUE: Multiple fluoroscopic spot images were obtained during a single contrast upper GI with KUB. Total fluoroscopy time: 1 minute 32 seconds Radiation exposure (Reference Air Kerma): 99.36 mGy Images: 2 spot images 7 series and 2 delayed AP views of the abdomen FINDINGS: Training Systems Officer images demonstrate postsurgical changes from previous Tan-en-Y [...] Corie Garza 03/17/2023 5:00 PM Dictation workstation: [id number] XR chest 1 view Narrative: Interpreted By: Corie Garza, STUDY: XR CHEST 1 VIEW; 03/17/2023 12:41 pm INDICATION: Signs/Symptoms:Status post NG tube placement. COMPARISON: None available ACCESSION NUMBER(S): [id number] ORDERING CLINICIAN: TIFFANIE MENDEZ FINDINGS: RESULT: Nasogastric [...] Corie Garza 03/17/2023 4:19 PM Dictation workstation: [id number] Physical Exam Vitals and nursing note reviewed. [...] 03/17/2023 done at 2:05 p.m. ACCESSION NUMBER(S): [id number] ORDERING CLINICIAN: TIFFANIE MENDEZ TECHNIQUE: AP erect view of the chest FINDINGS: The nasogastric tube has not ch anged in placement with the tip seen within the proximal thoracic esophagus. Heart and mediastinum are normally visualized. Lungs are clear. Distal tip of nasogastric tube in proximal thoracic esophagus just above the aortic arch. Signed by: Nya Ahmadi 03/17/2023 8:19 PM Dictation workstation: [id number] FL upper GI w double contrast w small bowel follow through Result Date: 03/17/2023 Interpreted By: Corie Garza, STUDY: FL UPPER GI W DOUBLE CONTRAST W SMALL BOWEL FOLLOW THROUGH; 03/17/2023 4:40 pm INDICATION: Signs/Symptoms:abdominal pain. COMPARISON: None. ACCESSION NUMBER(S): [id number] ORDERING CLINICIAN: TIFFANIE MENDEZ TECHNIQUE: Multiple fluoroscopic spot images were obtained during a single contrast upper GI with KUB. Total fluoroscopy time: 1 minute 32 seconds Radiation exposure (Reference Air Kerma): 99.36 mGy Images: 2 spot images 7 series and 2 delayed AP viewsof the abdomen FINDINGS: Training Systems Officer images demonstrate postsurgical changes from previous Tan-en-Y [...] Corie Garza 03/17/2023 5:00 PM Dictation workstation: [id number] XR chest 1 view Result Date: 03/17/2023 Interpreted By: Corie Garza, STUDY: XR CHEST 1 VIEW; 03/17/2023 12:41 pm INDICATION: Signs/Symptoms:Status post NG tube placement. COMPARISON: None available ACCESSION NUMBER(S): [id number] ORDERING CLINICIAN: TIFFANIE MENDEZ FINDINGS: RESULT: Nasogastric [...] Corie Garza 03/17/2023 4:19 PM Dictation workstation: [id number] CT abdomen pelvis w IV contrast Result Date: 03/16/2023 Interpreted By: Corie Garza, STUDY: CT ABDOMEN PELVIS W IV CONTRAST; 03/16/2023 5:27 pm INDICATION: Signs/Symptoms:abdominal pain - with oral and IV contrast. COMPARISON: None.. ACCESSION NUMBER(S): [id number] ORDERING CLINICIAN: TIFFANIE MENDEZ TECHNIQUE: Oral contrast [...] Corie Garza 03/16/2023 5:46 PM Dictation workstation: [id number] Assessment/Plan Abdominal pain, nausea, chronic intolerance to [...] 03/17/2023 done at 2:05 p.m. ACCESSION NUMBER(S): [id number] ORDERING CLINICIAN: TIFFANIE MENDEZ TECHNIQUE: AP erect view of the chest FINDINGS: The nasogastric tube has not ch anged in placement with the tip seen within the proximal thoracic esophagus. Heart and mediastinum are normally visualized. Lungs are clear. Distal tip of nasogastric tube in proximal thoracic esophagus just above the aortic arch. Signed by: Nya Ahmadi 03/17/2023 8:19 PM Dictation workstation: [id number] FL upper GI w double contrast w small bowel follow through Result Date: 03/17/2023 Interpreted By: Corie Garza, STUDY: FL UPPER GI W DOUBLE CONTRAST W SMALL BOWEL FOLLOW THROUGH; 03/17/2023 4:40 pm INDICATION: Signs/Symptoms:abdominal pain. COMPARISON: None. ACCESSION NUMBER(S): [id number] ORDERING CLINICIAN: TIFFANIE MENDEZ TECHNIQUE: Multiple fluoroscopic spot images were obtained during a single contrast upper GI with KUB. Total fluoroscopy time: 1 minute 32 seconds Radiation exposure (Reference Air Kerma): 99.36 mGy Images: 2 spot images 7 series and 2 delayed AP viewsof the abdomen FINDINGS: Training Systems Officer images demonstrate postsurgical changes from previous Tan-en-Y [...] Corie Garza 03/17/2023 5:00 PM Dictation workstation: [id number] XR chest 1 view Result Date: 03/17/2023 Interpreted By: Corie Garza, STUDY: XR CHEST 1 VIEW; 03/17/2023 12:41 pm INDICATION: Signs/Symptoms:Status post NG tube placement. COMPARISON: None available ACCESSION NUMBER(S): [id number] ORDERING CLINICIAN: TIFFANIE MENDEZ FINDINGS: RESULT: Nasogastric [...] Corie Garza 03/17/2023 4:19 PM Dictation workstation: [id number] CT abdomen pelvis w IV contrast Result Date: 03/16/2023 Interpreted By: Corie Garza, STUDY: CT ABDOMEN PELVIS W IV CONTRAST; 03/16/2023 5:27 pm INDICATION: Signs/Symptoms:abdominal pain - with oral and IV contrast. COMPARISON: None.. ACCESSION NUMBER(S): [id number] ORDERING CLINICIAN: TIFFANIE MENDEZ TECHNIQUE: Oral contrast [...] Corie Garza 03/16/2023 5:46 PM Dictation workstation: [id number] XR chest 1 view Result Date: 03/06/2023 Interpreted By: Sara Zarate, STUDY: XR CHEST 1 VIEW; 03/06/2023 7:32 am INDICATION: Signs/Symptoms:post op COMPARISON: None ACCESSION NUMBER(S): [id number] ORDERING CLINICIAN: JASON FOSTER TECHNIQUE: Frontal and [...] Sara Zarate 03/06/2023 1:48 PM Dictation workstation: [id number] XR chest 1 view Result Date: 03/05/2023 Interpreted By: Baldomero Hendrickson, STUDY: XR CHEST 1 VIEW; 03/05/2023 3:11 pm INDICATION: CLINICAL INFORMATION: Signs/Symptoms:NG tube placement confirmation. COMPARISON: 03/05/2019 at 745 hours ACCESSION NUMBER(S): [id number] ORDERING CLINICIAN: DESMOND TIRADO TECHNIQUE: Portable chest [...] Baldomero Hendrickson 03/05/2023 3:31 PM Dictation workstation: [id number] XR chest 1 view Result Date: 03/05/2023 Interpreted By: Nya Ahmadi, STUDY: XR CHEST 1 VIEW 03/05/2023 7:51 am INDICATION: Signs/Symptoms:confirm line placement COMPARISON: None available. ACCESSION NUMBER(S): [id number] ORDERING CLINICIAN: SERENA GEORGE TECHNIQUE: AP erect view of the chest FINDINGS: Right arm PICC line terminates in the SVC. There is no pneumothorax. The heart, mediastinum, and lungs are normally visualized. Right arm PICC line terminating in SVC without pneumothorax. No acute cardiopulmonary disease. Signed by: Nya Ahmadi 03/05/2023 7:54 AM Dictation workstation: [id number] Assessment/Plan Principal Problem: Abdominal pain NV, Epigastric Pain (LFTs are normal. CT a/p normal) -Complicated recent surgical hx with atn en y and gastric sleeve followed by [facility] and vascular intervention earlier this month. She was having a post op ileus at that time. Still on narcotics -with proceed with EGD for symptomatic treatment in the presence of Dr. Tato Nguyen. -EGD order placed, tentative plan for tomorrow -Increase PPI to twice daily Deepika Roy APRN-BETH Associated attestation - Yani Wong MD - [...] and IV contrast. COMPARISON: None.. ACCESSION NUMBER(S): [id number] ORDERING CLINICIAN: TIFFANIE MENDEZ TECHNIQUE: Oral contrast [...] Corie Garza 03/16/2023 5:46 PM Dictation workstation: [id number] Physical Exam Vitals and nursing note reviewed. [...] in her local emergency room out in [place]. She was discharged after her nausea was relieved last night but this nausea recurred and she was transferred here. I suspect given adequate pain control and control of her nausea that once the inflammation of her surgery resolves she will feel much better. Pancreatitis and bowel ischemia have been ruled out through lab testing and noncontrast CT done yesterday in [place]. I am going to get a CT scan with IV andoral contrast today and start IV fluids and antiemetics as well as analgesics. Unless she starts taking p.o.'s well I will likely place a feeding tube and start enteral feedings during this hospitalization. She will be getting a gastroenterology consultation as well as a foregut surgery consultation. documented in this [facility] Work Phone: 1(875) 247-849402-03-2024 Hospital Discharge instructions* Discharge Instructions* Jason Foster APRN-FIRE CONTROL ASSISTANT - 03/20/2023 3:21 PM EST What to [...] up in 1-2 weeks [facility] Phone: 1(897) 275-692402-02-2024 Plan of care note* Care Plan - [...] throughout the shift Outcome: Progressing [facility]02[facility]02-[facility]24 Miscellaneous Notes* Care Plan - [...] safety. * Significant Event - Channing Oconnor - 03/16/2023 3:02 PM EST Called to admit this patient for abdominal pain. Going to review, this patient has a ongoing history since 2019 of abdominal pain with considerable notes from [facility], and has a history gastric bypass, cholecystectomy, sphincterectomy, and recent median arcuate ligament release on March 05 with vascular surgery. Patient [place] and sent home, [...] issue which will be best done at [facility] either as inpatient or outpatient, where she has ongoing work, or is a postoperative situation that has been discussed multiple times with the primary operating service (and I have discussed with Tiffanie Mendez CNP with their service and there appears to be a good plan for imaging studies), and can ba admitted by their service). documented in this [facility] Work Phone: 1(108) 633-484502-02-2024 Plan of care note* Care Plan - [...] to address these barriers include. [facility]02[facility]01[facility] Plan of care note* Care [...] pain meds throughout the shift Outcome: Progressing [facility] Work Phone: 1(641) 808-346002-01-2024 Nurse Note* Andie Lugo RN - 03/18/2023 4:47 PM EST Pt resting quietly in bed, no distres noted [facility]02-01-2024 Nurse Note* Andie Lugo RN - 03/18/2023 3:17 PM EST Pt given IS and instructed how to use, pt verbalized understanding [facility] Work Phone: 1(153) 249-513002-01-2024 Nurse Note* Andie Lugo RN - 03/18/2023 2:50 PM EST Ronnie foster cnp into see pt [facility] Work Phone: 1(270) 283-546502-01-2024 Consult note* Nabila Moore RDN, LD - [...] Energy Needs Total Energy Estimated Needs (kCal): (3810-7237 kcals) Total Estimated Energy Need per Day (kCal/kg): (25-30 kcals/kg) Method for Estimating Needs: adjusted IBW Estimated Protein Needs Total Protein Estimated Needs (g): (68-81g Protein) Total Protein Estimated Needs (g/kg): (1-1.2 g/kg) Method for Estimating Needs: adjusted IBW Estimated Fluid Needs Total Fluid Estimated Needs (mL): (7557-8118 mL fluid) Method for Estimating Needs: 1 [...] Prescription: Individualized Nutrition Prescription Provided for : 1682-6820 kcals, 68-81g Protein, 5239-2394 mL fluid, provided via PO/NG, once diet advanced. Nutrition Interventions: Food and/or Nutrient Delivery Interventions Interventions: Enteral intake Enteral Intake: Modify composition of enteral nutrition, Modify rate of enteral nutrition Goal: When able to initiate Tube feeding, recommend Osmolite 1.5 @ goal rate of 45 mL/hr to [id number] kcals, 68g Protein, and 823 mL free [...] days Follow up Comment: 03/22/23 [facility]-01-[facility]24 Consult note* Nabila Moore RDN, [...] Energy Needs Total Energy Estimated Needs (kCal): (2418-2320 kcals) Total Estimated Energy Need per Day (kCal/kg): (25-30 kcals/kg) Method for Estimating Needs: adjusted IBW Estimated Protein Needs Total Protein Estimated Needs (g): (68-81g Protein) Total Protein Estimated Needs (g/kg): (1-1.2 g/kg) Method for Estimating Needs: adjusted IBW Estimated Fluid Needs Total Fluid Estimated Needs (mL): (1386-2010 mL fluid) Method for Estimating Needs: 1 [...] Prescription: Individualized Nutrition Prescription Provided for : 3799-3878 kcals, 68-81g Protein, 6409-9478 mL fluid, provided via PO/NG, once diet advanced. Nutrition Interventions: Food and/or Nutrient Delivery Interventions Interventions: Enteral intake Enteral Intake: Modify composition of enteral nutrition, Modify rate of enteral nutrition Goal: When able to initiate Tube feeding, recommend Osmolite 1.5 @ goal rate of 45 mL/hr to [id number] kcals, 68g Protein, and 823 mL free [...] PPI. She had an upper endoscopy at [facility] onJune 23, 2022 for epigastric pain. At that time her gastrojejunostomy appeared normal. She continued to complain of abdominal pain and had an upper endoscopy at the [facility] on October 27, 2022. She was found to have food in her stomach and jejunum. There was no evidence of gastrojejunal ulcer. On November 11, 2022 she had laparoscopic closure of internal hernia at the jejunojejunostomy and ERCP through her gastric remnant for her abdominal pain. She was hospitalized at the [facility] on December 06, 2022 for abdominal [...] by laparotomy on March 05, 2023 at [facility]. She was discharged to home on [...] MARSHAL (acute kidney injury) (CMS/HCC), Autoimmune disorder ([facility]/HCC), Bipolar disorder ([facility]/HCC), BPH (benign prostatic hyperplasia), Cerebral aneurysm, Cervical cancer (CMS/HCC), Cervical disc disease, Chronic kidney disease, CKD (chronic kidney disease), Cognitivedecline, Crohn's disease ([facility]/HCC), Dementia ([facility]/HCC), Dysphagia, Endometrial cancer ([facility]/HCC), Esophageal cancer ([facility]/HCC), Esophageal disease, ESRD (end stage renal disease) ([facility]/HCC), Fibromyalgia, primary, Fractures, Gastric cancer ([facility]/HCC), Gender dysphoria, GI (gastrointestinal bleed), Hemodialysis status ([facility]/HCC), Hernia, internal, History of peritoneal dialysis, HIV disease ([facility]/HCC), Immunocompromised ([facility]/HCC), Liver disease, Lumbar disc disease, Mastocytosis, MS (multiple sclerosis) ([facility]), Muscular dystrophy ([facility]/HCC), Myasthenia gravis ([facility]/HCC), Neuromuscular disorder ([facility]/HCC), Ovarian cancer ([facility]/HCC), Pancreatitis, Peptic ulcer disease, Prematurity, PTSD (post-traumatic stress disorder), Schizophrenia ([facility]/HCC), Seizure disorder ([facility]/HCC), Spinal stenosis, Substanceaddiction ([facility]/HCC), Syncope, TIA (transient ischemic attack), Ulcerative colitis ([facility]/HCC), Urinary tract infection, Uterine cancer ([facility]/HCC), or Vertigo. Surgical History She has [...] Nsaids (non-steroidal anti-inflammatory drug) Review of Systems Archer reports having a normal bowel movement this [...] INDICATION: Signs/Symptoms:abdominal pain. COMPARISON: None. ACCESSION NUMBER(S): [id number] ORDERING CLINICIAN: TIFFANIE MENDEZ TECHNIQUE: Multiple fluoroscopic spot images were obtained during a single contrast upper GI with KUB. Total fluoroscopy time: 1 minute 32 seconds Radiation exposure (Reference Air Kerma): 99.36 mGy Images: 2 spot images 7 series and 2 delayed AP views of the abdomen FINDINGS: Training Systems Officer images demonstrate postsurgical changes from previous Tan-en-Y [...] Corie Garza 03/17/2023 5:00 PM Dictation workstation: [id number] Latest Reference Range & Units 03/17/23 07:04 [...] recommendations. Kurt Matos MD * Cheyenne Jansen, PERIOPERATIVE ASSISTANT-FIRE CONTROL ASSISTANT - 03/17/2023 10:29 AM EST Consults Reason [...] and IV contrast. COMPARISON: None.. ACCESSION NUMBER(S): [id number] ORDERING CLINICIAN: TIFFANIE MENDEZ TECHNIQUE: Oral contrast [...] Corie Garza 03/16/2023 5:46 PM Dictation workstation: [id number] XR chest 1 view Result Date: 03/06/2023 Interpreted By: Sara Zarate, STUDY: XR CHEST 1 VIEW; 03/06/2023 7:32 am INDICATION: Signs/Symptoms:post op COMPARISON: None ACCESSION NUMBER(S): [id number] ORDERING CLINICIAN: JASON FOSTER TECHNIQUE: Frontal and [...] Sara Zarate 03/06/2023 1:48 PM Dictation workstation: [id number] XR chest 1 view Result Date: 03/05/2023 Interpreted By: Baldomero Hendrickson, STUDY: XR CHEST 1 VIEW; 03/05/2023 3:11 pm INDICATION: CLINICAL INFORMATION: Signs/Symptoms:NG tube placement confirmation. COMPARISON: 03/05/2019 at 745 hours ACCESSION NUMBER(S): [id number] ORDERING CLINICIAN: DESMOND TIRADO TECHNIQUE: Portable chest [...] Baldomero Hendrickson 03/05/2023 3:31 PM Dictation workstation: [id number] XR chest 1 view Result Date: 03/05/2023 Interpreted By: Nya Ahmadi, STUDY: XR CHEST 1 VIEW 03/05/2023 7:51 am INDICATION: Signs/Symptoms:confirm line placement COMPARISON: None available. ACCESSION NUMBER(S): [id number] ORDERING CLINICIAN: SERENA GEORGE TECHNIQUE: AP erect view of the chest FINDINGS: Right arm PICC line terminates in the SVC. There is no pneumothorax. The heart, mediastinum, and lungs are normally visualized. Right arm PICC line terminating in SVC without pneumothorax. No acute cardiopulmonary disease. Signed by: Nya Ahmadi 03/05/2023 7:54 AM Dictation workstation: [id number] Assessment/Plan NV, Epigastric Pain (LFTs are normal. [...] the presence of Dr. Tato Nguyen. * Lizz Brunson APRN-BETH - 03/16/2023 5:09 PM EST Consults Reason For Consult Medical management History Of Present Illness Abbey Garcia is a 32 y.o. female presenting with abdominal pain. 32-year-old female presents to [facility] for chief complaint of abdominal pain, [...] emergency room close to her home near [place], [place] for further evaluation and was promptly transferred to [facility] for further evaluation and treatment. The [...] medical history of MARSHAL (acute kidney injury) ([facility]), Autoimmune disorder ([facility]), Bipolar disorder ([facility]), BPH (benign prostatic hyperplasia), Cerebral aneurysm, Cervical cancer ([facility]/HCC), Cervical disc disease, Chronic kidney disease, CKD (chronic kidney disease), Cognitivedecline, Crohn's disease ([facility]/HCC), Dementia ([facility]), Dysphagia, Endometrial cancer ([facility]), Esophageal cancer ([facility]), Esophageal disease, ESRD (end stage renal disease) ([facility]), Fibromyalgia, primary, Fractures, Gastric cancer ([facility]), Gender dysphoria, GI (gastrointestinal bleed), Hemodialysis status ([facility]), Hernia, internal, History of peritoneal dialysis, HIV disease ([facility]), Immunocompromised ([facility]), Liver disease, Lumbar disc disease, Mastocytosis, MS (multiple sclerosis) ([facility]), Muscular dystrophy ([facility]), Myasthenia gravis ([facility]), Neuromuscular disorder ([facility]), Ovarian cancer ([facility]), Pancreatitis, Peptic ulcer disease, Prematurity, PTSD (post-traumatic stress disorder), Schizophrenia ([facility]), Seizure disorder ([facility]), Spinal stenosis, Substanceaddiction ([facility]), Syncope, TIA (transient ischemic attack), Ulcerative colitis ([facility]), Urinary tract infection, Uterine cancer ([facility]), or Vertigo. Surgical History She has a [...] to follow. JAMA Smith documented in this [facility] Work Phone: 1(221) 624-908302-01-2024 Plan of care note* Care Plan - Andie Lugo RN - 03/18/2023 11:05 AM EST The patient's goals for the shift include Free from pain The clinical goals for the shift include decrease nausea [facility] Work Phone: 1([phone] 139-433902-01-2024 Nurse Note* Andie Lugo RN - 03/18/2023 7:27 AM EST Assumed care of pt, pt resting quietly in bed, ng to liws , will monitor [facility] Work Phone: [phone] Plan of care note* Care Plan - [...] throughout the shift Outcome: Progressing [facility] Work Phone: [phone] Consult note* Kurt Matos MD - 03/17/2023 [...] PPI. She had an upper endoscopy at [facility] onJune 23, 2022 for epigastric pain. At that time her gastrojejunostomy appeared normal. She continued to complain of abdominal pain and had an upper endoscopy at the [facility] on October 27, 2022. She was found to have food in her stomach and jejunum. There was no evidence of gastrojejunal ulcer. On November 11, 2022 she had laparoscopic closure of internal hernia at the jejunojejunostomy and ERCP through her gastric remnant for her abdominal pain. She was hospitalized at the [facility] on December 06, 2022 for abdominal [...] by laparotomy on March 05, 2023 at [facility]. She was discharged to home on [...] medical history of MARSHAL (acute kidney injury) ([facility]/HCC), Autoimmune disorder (CMS/HCC), Bipolar disorder (CMS/HCC), BPH (benign prostatic hyperplasia), Cerebral aneurysm, Cervical cancer ([facility]/HCC), Cervical disc disease, Chronic kidney disease, CKD (chronic kidney disease), Cognitivedecline, Crohn's disease (CMS/HCC), Dementia (CMS/HCC), Dysphagia, Endometrial cancer (CMS/HCC), Esophageal cancer (CMS/HCC), Esophageal disease, ESRD (end stage renal disease) ([facility]/HCC), Fibromyalgia, primary, Fractures, Gastric cancer (CMS/HCC), Gender dysphoria, GI (gastrointestinal bleed), Hemodialysis status ([facility]/HCC), Hernia, internal, History of peritoneal dialysis, HIV disease (CMS/HCC), Immunocompromised ([facility]/HCC), Liver disease, Lumbar disc disease, Mastocytosis, MS (multiple sclerosis) ([facility]/HCC), Muscular dystrophy ([facility]/HCC), Myasthenia gravis ([facility]/HCC), Neuromuscular disorder (CMS/HCC), Ovarian cancer ([facility]/HCC), Pancreatitis, Peptic ulcer disease, Prematurity, PTSD (post-traumatic stress disorder), Schizophrenia (CMS/HCC), Seizure disorder ([facility]/HCC), Spinal stenosis, Substanceaddiction ([facility]/HCC), Syncope, TIA (transient ischemic attack), Ulcerative [...] Nsaids (non-steroidal anti-inflammatory drug) Review of Systems Archer reports having a normal bowel movement this [...] INDICATION: Signs/Symptoms:abdominal pain. COMPARISON: None. ACCESSION NUMBER(S): [id number] ORDERING CLINICIAN: TIFFANIE MENDEZ TECHNIQUE: Multiple fluoroscopic spot images were obtained during a single contrast upper GI with KUB. Total fluoroscopy time: 1 minute 32 seconds Radiation exposure (Reference Air Kerma): 99.36 mGy Images: 2 spot images 7 series and 2 delayed AP views of the abdomen FINDINGS: Training Systems Officer images demonstrate postsurgical changes from previous Tan-en-Y [...] Corie Garza 03/17/2023 5:00 PM Dictation workstation: [id number] Latest Reference Range & Units 03/17/23 07:04 [...] my evaluation and recommendations. Kurt Matos MD [facility] Work Phone: [phone] Nurse Note* Cathy Madera RN - 03/17/2023 6:05 PM EST NG tube re inserted per order. Patient tolerated well. No complications. This nurse requested orderfor xray for placement of NG tube. Order received. Waiting on auto electrical technician to verify placement per order. Will continue to monitor patient to ensure patient safety. [facility] Work Phone: [phone] Plan of care note* Care Plan - [...] pain control, maintain and ensure patient safety. [facility] Work Phone: [phone] Nurse Note* Cathy Madera RN - 03/17/2023 [...] per to re insert NG tube and circus supervisor to low suction. Will re attempt with patients consent. [facility] Work Phone: [phone] Nurse Note* Cathy Madera RN - 03/17/2023 12:06 PM EST Patient transported to [facility] for placement of NG. Patient off unit. [facility] Work Phone: [phone] Nurse Note* Cathy Madera RN - 03/17/2023 11:44 AM EST This nurse notified supply chain tech that patient had NG tube placed and needed Xray for placement verification. This nurse messaged Rosa Marysol YUN to notify her that NG tube was placed and needed separate order for NG tube placement per supply chain tech. Order received. Will continue to monitor patient to ensure patient safety. [facility] Work Phone: [phone] History and physical note* JAMA Judd - 03/17/2023 11:03 AM EST History Of Present Illness This is a 32-year-old female with past medical history of chronic abdominal pain, PCOS, PUD, depression, GERD, IBS, obesity (status post laparoscopic sleeve gastrectomy in August [address] Ku atlUfxd-fv-P gastric bypass 01/29/[address] Kat) and [...] her local hospital and was transferred to [facility] per Dr. Magaña's request. [...] and IV contrast. COMPARISON: None.. ACCESSION NUMBER(S): [id number] ORDERING CLINICIAN: TIFFANIE MENDEZ TECHNIQUE: Oral contrast [...] Corie Garza 03/16/2023 5:46 PM Dictation workstation: [id number] XR chest 1 view Result Date: 03/06/2023 Interpreted By: Sara Zarate, STUDY: XR CHEST 1 VIEW; 03/06/2023 7:32 am INDICATION: Signs/Symptoms:post op COMPARISON: None ACCESSION NUMBER(S): [id number] ORDERING CLINICIAN: JASON FOSTER TECHNIQUE: Frontal and [...] Sara Zarate 03/06/2023 1:48 PM Dictation workstation: [id number] XR chest 1 view Result Date: 03/05/2023 Interpreted By: Baldomero Hendrickson, STUDY: XR CHEST 1 VIEW; 03/05/2023 3:11 pm INDICATION: CLINICAL INFORMATION: Signs/Symptoms:NG tube placement confirmation. COMPARISON: 03/05/2019 at 745 hours ACCESSION NUMBER(S): [id number] ORDERING CLINICIAN: DESMOND TIRADO TECHNIQUE: Portable chest [...] Baldomero Hendrickson 03/05/2023 3:31 PM Dictation workstation: [id number] XR chest 1 view Result Date: 03/05/2023 Interpreted By: Nya Ahmadi, STUDY: XR CHEST 1 VIEW 03/05/2023 7:51 am INDICATION: Signs/Symptoms:confirm line placement COMPARISON: None available. ACCESSION NUMBER(S): [id number] ORDERING CLINICIAN: SERENA GEORGE TECHNIQUE: AP erect view of the chest FINDINGS: Right arm PICC line terminates in the SVC. There is no pneumothorax. The heart, mediastinum, and lungs are normally visualized. Right arm PICC line terminating in SVC without pneumothorax. No acute cardiopulmonary disease. Signed by: Nya Ahmadi 03/05/2023 7:54 AM Dictation workstation: [id number] Assessment and Plan -Abdominal pain/nausea -Median arcuate ligament syndrome, status post ligament release on 03/05/2023 -Obesity: status post laparoscopic sleeve gastrectomy in August [address] Ku and Atn-en-Y gastric bypass 01/29/[address] Kat 1. Abdominal pain/nausea: CT abdomen pelvis with IV contrast reviewed by Dr. aMgaña. Plan for upper GI series. - NG [...] iron supplementation GERD: Continue Pepcid [facility] Work Phone: [phone] History and physical note* JAMA Judd - 03/17/2023 11:03 AM EST History Of Present Illness This is a 32-year-old female with past medical history of chronic abdominal pain, PCOS, PUD, depression, GERD, IBS, obesity (status post laparoscopic sleeve gastrectomy in August [address] Ku syoSiax-vi-K gastric bypass 01/29/[address] Kat) and [...] her local hospital and was transferred to [facility] per Dr. Magaña's request. [...] and IV contrast. COMPARISON: None.. ACCESSION NUMBER(S): [id number] ORDERING CLINICIAN: TIFFANIE MENDEZ TECHNIQUE: Oral contrast [...] Corie Garza 03/16/2023 5:46 PM Dictation workstation: [id number] XR chest 1 view Result Date: 03/06/2023 Interpreted By: Sara Zarate, STUDY: XR CHEST 1 VIEW; 03/06/2023 7:32 am INDICATION: Signs/Symptoms:post op COMPARISON: None ACCESSION NUMBER(S): [id number] ORDERING CLINICIAN: JASON FOSTER TECHNIQUE: Frontal and [...] Sara Zarate 03/06/2023 1:48 PM Dictation workstation: [id number] XR chest 1 view Result Date: 03/05/2023 Interpreted By: Baldomero Hendrickson, STUDY: XR CHEST 1 VIEW; 03/05/2023 3:11 pm INDICATION: CLINICAL INFORMATION: Signs/Symptoms:NG tube placement confirmation. COMPARISON: 03/05/2019 at 745 hours ACCESSION NUMBER(S): [id number] ORDERING CLINICIAN: DESMOND TIRADO TECHNIQUE: Portable chest [...] Baldomero Hendrickson 03/05/2023 3:31 PM Dictation workstation: [id number] XR chest 1 view Result Date: 03/05/2023 Interpreted By: Nya Ahmadi, STUDY: XR CHEST 1 VIEW 03/05/2023 7:51 am INDICATION: Signs/Symptoms:confirm line placement COMPARISON: None available. ACCESSION NUMBER(S): [id number] ORDERING CLINICIAN: SERENA GEORGE TECHNIQUE: AP erect view of the chest FINDINGS: Right arm PICC line terminates in the SVC. There is no pneumothorax. The heart, mediastinum, and lungs are normally visualized. Right arm PICC line terminating in SVC without pneumothorax. No acute cardiopulmonary disease. Signed by: Nya Ahmadi 03/05/2023 7:54 AM Dictation workstation: [id number] Assessment and Plan -Abdominal pain/nausea -Median arcuate [...] supplementation GERD: Continue Pepcid [facility] Work Phone: [phone]) 280-948101-31-2024 Nurse Note* Cathy Madera RN - 03/17/2023 10:58 AM EST Patient is ordered NPO this nurse received verbal orders with readback to administer oral medication per Rosa YUN at bedside. Will continue to monitor patient to ensure patient safety. [facility] Work Phone: [phone] Nurse Note* Cathy Madera RN - 03/17/2023 [...] patient to ensure patient safety. [facility] Work Phone: [phone] Consult note* Cheyenne Jansen, PERIOPERATIVE ASSISTANT-FIRE CONTROL ASSISTANT - 03/17/2023 10:29 AM EST Consults Reason For Consult [place] History Of Present Illness Abbey Garcia is a 32 y.o. female presenting with abdominal pain, nausea, vomiting. Patient has past medical history of gastric bypass that was revised with gastric sleeve. She also has a history of median arcuate ligament release with vascular surgery 03/05/2023, [facility]. This was completed per Dr [...] medical history of MARSHAL (acute kidney injury) ([facility]/HCC), Autoimmune disorder (CMS/HCC), Bipolar disorder (CMS/HCC), BPH (benign prostatic hyperplasia), Cerebral aneurysm, Cervical cancer (CMS/HCC), Cervical disc disease, Chronic kidney disease, CKD (chronic kidney disease), Cognitivedecline, Crohn's disease (CMS/HCC), Dementia (CMS/HCC), Dysphagia, Endometrial cancer (CMS/HCC), Esophageal cancer (CMS/HCC), Esophageal disease, ESRD (end stage renal disease) ([facility]/HCC), Fibromyalgia, primary, Fractures, Gastric cancer (CMS/HCC), Gender dysphoria, GI (gastrointestinal bleed), Hemodialysis status ([facility]/HCC), Hernia, internal, History of peritoneal dialysis, [...] Diabetes Mother Jessicagrace Jeterino Hypertension Mother Jessica Jeterino Cancer Maternal [...] and IV contrast. COMPARISON: None.. ACCESSION NUMBER(S): [id number] ORDERING CLINICIAN: TIFFANIE MENDEZ TECHNIQUE: Oral contrast [...] Corie Garza 03/16/2023 5:46 PM Dictation workstation: [id number] XR chest 1 view Result Date: 03/06/2023 Interpreted By: Sara Zarate, STUDY: XR CHEST 1 VIEW; 03/06/2023 7:32 am INDICATION: Signs/Symptoms:post op COMPARISON: None ACCESSION NUMBER(S): [id number] ORDERING CLINICIAN: JASON FOSTER TECHNIQUE: Frontal and [...] Sara Zarate 03/06/2023 1:48 PM Dictation workstation: [id number] XR chest 1 view Result Date: 03/05/2023 Interpreted By: Baldomero Hendrickson, STUDY: XR CHEST 1 VIEW; 03/05/2023 3:11 pm INDICATION: CLINICAL INFORMATION: Signs/Symptoms:NG tube placement confirmation. COMPARISON: 03/05/2019 at 745 hours ACCESSION NUMBER(S): [id number] ORDERING CLINICIAN: DESMOND TIRADO TECHNIQUE: Portable chest [...] Baldomero Hendrickson 03/05/2023 3:31 PM Dictation workstation: [id number] XR chest 1 view Result Date: 03/05/2023 Interpreted By: Nya Ahmadi, STUDY: XR CHEST 1 VIEW 03/05/2023 7:51 am INDICATION: Signs/Symptoms:confirm line placement COMPARISON: None available. ACCESSION NUMBER(S): [id number] ORDERING CLINICIAN: SERENA GEORGE TECHNIQUE: AP erect view of the chest FINDINGS: Right arm PICC line terminates in the SVC. There is no pneumothorax. The heart, mediastinum, and lungs are normally visualized. Right arm PICC line terminating in SVC without pneumothorax. No acute cardiopulmonary disease. Signed by: Nya Ahmadi 03/05/2023 7:54 AM Dictation workstation: [id number] Assessment/Plan NV, Epigastric Pain (LFTs are normal. [...] in the presence of Dr. Tato Nguyen. [facility] Work Phone: [phone] Nurse Note* Cathy Madera RN - 03/17/2023 [...] patient to ensure patient safety. [facility] Work Phone: [phone] Consult note* Lizz Brunson, PERIOPERATIVE ASSISTANT-FIRE CONTROL ASSISTANT - 03/16/2023 5:09 PM EST Consults Reason For Consult Medical management History Of Present Illness Abbey Garcia is a 32 y.o. female presenting with abdominal pain. 32-year-old female presents to [facility] for chief complaint of abdominal pain, [...] emergency room close to her home near [place], [place] for further evaluation and was promptly transferred to [facility] for further evaluation and treatment. The [...] medical history of MARSHAL (acute kidney injury) ([facility]), Autoimmune disorder ([facility]/HCC), Bipolar disorder ([facility]), BPH (benign prostatic hyperplasia), Cerebral aneurysm, Cervical cancer ([facility]), Cervical disc disease, Chronic kidney disease, CKD (chronic kidney disease), Cognitivedecline, Crohn's disease ([facility]/HCC), Dementia ([facility]/HCC), Dysphagia, Endometrial cancer ([facility]/HCC), Esophageal cancer ([facility]/HCC), Esophageal disease, ESRD (end stage renal disease) ([facility]), Fibromyalgia, primary, Fractures, Gastric cancer ([facility]/HCC), Gender dysphoria, GI (gastrointestinal bleed), Hemodialysis status ([facility]), Hernia, internal, History of peritoneal dialysis, HIV disease ([facility]), Immunocompromised ([facility]), Liver disease, Lumbar disc disease, Mastocytosis, MS (multiple sclerosis) ([facility]), Muscular dystrophy (CMS/HCC), Myasthenia gravis (CMS/HCC), Neuromuscular [...] continue to follow. JAMA Smith [facility] Work Phone: [phone] Emergency department Note* Grecia Oates RN - 03/16/2023 5:00 PM EST Pt is requesting pain medication. MD Barker notified. Grecia Oates RN 03/16/23 8811 [facility] Work Phone: [phone] Emergency department Note* Grecia Oates RN - [...] 03/16/2023 1:46 PM EST Pt arrived from [place] due to abdominal pain due to celiac [...] dictation software, please excuse any errors in telegraph repeater mechanic. Melisa Barker MD 03/16/231919 * Leatha Paul PA-C - 03/16/2023 1:37 PM EST HPI Chief Complaint Patient presents with Abdominal Pain Patient is a 32-year-old female history of gastric bypass surgery, median arcuate ligament syndromewith vascular surgery performed on March 05 transferred to [facility] from [facility] in [place] for abdominal pain and nausea vomiting. Patient states the abdominal pain is mid abdominal, no signs of surgical scar infection, states she has been unable to tolerate p.o. intake for 2 days now. She states she feels a burning cramping sensation around where her gastric pouch was placed. ER spoke with Dr. Magaña vascular surgeon who requested for patient to be sent to [facility] for further evaluation. Patient denies recent fever [...] Tue Mar 16, 2023 1421 Vascular surgery BLEACH MACHINE OPERATOR wanted to put in the imaging study [...] at this time. He spoke with Tiffanie BLEACH MACHINE OPERATOR for vascular surgery. He epic chatted me [...] recognition software. Please excuse any errors of telegraph repeater mechanic. My thought process and reason for plan [...] from: Patient, EMS, attending ER physician at [facility] Social Determinants of Health considered during [...] and has been validated for use at [facility]. Negative results do not preclude COVID-19 infections or Influenza A/B infections, and should not be used as the sole basis for diagnosis, treatment, or other management decisions. If Influenza A/B and RSV PCR results are negative, testing for Parainfluenza virus, Adenovirus and Metapneumovirus is routinely performed for [facility] pediatric oncology and intensive care inpatients, and [...] Dr. Magaña transferred ER to ER from [place] for further evaluation of her abdominal pain [...] Ngo RN 03/17/23 0826 documented in this [facility] Work Phone: [phone] Emergency department Note* Grecia Oates RN - 03/16/2023 3:54 PM EST Pt has not been able to sustain orthostatic VS. She is not able to stand at this time. Grecia Oates RN 03/16/23 5625 [facility] Work Phone: [phone] Note* Significant Event - Channing Oconnor DO - 03/16/2023 3:02 PM EST Called to admit this patient for abdominal pain. Going to review, this patient has a ongoing history since 2019 of abdominal pain with considerable notes from [facility], and has a history gastric bypass, cholecystectomy, sphincterectomy, and recent median arcuate ligament release on March 05 with vascular surgery. Patient [place] [facility] [place] [facility] [place] and sent home, [...] issue which will be best done at [facility] either as inpatient or outpatient, where she has ongoing work, or is a postoperative situation that has been discussed multiple times with the primary operating service (and I have discussed with Tiffanie Mendez CNP with their service and there appears to be a good plan for imaging studies), and can ba admitted by their service). 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 She [place] needs [place] be here for vascular surgery? Pt is A&O x3. States terrible pain in abdomen that doesn't go away. C/O nausea, vomiting, headaches, body chills. [facility] Work Phone: [phone]) 650-350001-30-2024 Emergency department Note* Linda Ngo RN - 03/16/2023 1:37 PM EST Into assess patient. Patient awake and A&OX4. Patient complains of incisional pain and requested Percocet for relief, rates pain 7/10. Assessed incisional wound on abdomen, incision well approximated, dry and scabbed, no drainage noted. Patient admits to surgery On 03/05/23 for MALS. Medicated with percocet as requested. Linda Ngo RN 03/17/23 0801 [facility]01-30-2024 Emergency department Note* Linda Ngo RN - 03/16/2023 1:37 PM EST Report called to DEE Ortiz updated on patient's status. Linda Ngo RN 03/17/23825 [facility] Work Phone: [phone] Physician Emergency department Note* Melisa Barker MD [...] dictation software, please excuse any errors in telegraph repeater mechanic. Melisa Barker MD 03/16/231919 [facility] Work Phone: [phone] Physician Emergency department Note* HENNY Miller-Elroy - 03/16/2023 1:37 PM EST HPI Chief Complaint Patient presents with Abdominal Pain Patient is a 32-year-old female history of gastric bypass surgery, median arcuate ligament syndromewith vascular surgery performed on March 05 transferred to [facility] from [facility] in [place] for abdominal pain and nausea vomiting. Patient states the abdominal pain is mid abdominal, no signs of surgical scar infection, states she has been unable to tolerate p.o. intake for 2 days now. She states she feels a burning cramping sensation around where her gastric pouch was placed. ER spoke with Dr. Magaña vascular surgeon who requested for patient to be sent to [facility] for further evaluation. Patient denies recent fever [...] Cedrick Kraus Kidney disease Maternal Grandfather Cedrick Karus Hypertension Maternal Grandmother Grandpa Anesthesia problems Paternal [...] Tue Mar 16, 2023 142 Vascular surgery BLEACH MACHINE OPERATOR wanted to put in the imaging study [...] recognition software. Please excuse any errors of telegraph repeater mechanic. My thought process and reason for plan [...] from: Patient, EMS, attending ER physician at [facility] Social Determinants of Health considered during [...] and has been validated for use at [facility] [address] [facility]. Negative results do not preclude COVID-19 infections or Influenza A/B infections, and should not be used as the sole basis for diagnosis, treatment, or other management decisions. If Influenza A/B and RSV PCR results are negative, testing for Parainfluenza virus, Adenovirus and Metapneumovirus is routinely performed for [facility] pediatric oncology and intensive care inpatients, and [...] Dr. Magaña transferred ER to ER from [place] for further evaluation of her abdominal pain [...] BLEEDING. Procedure Procedures Leatha Paul PA-C 03/16/23 8460 [facility] Work Phone: 1(341) 439-862301-29-2024 Hospital Discharge instructions Patient Education 03/15/2023 18:18:58 [...] Follow these instructions at home: Medicines Take uzfq-sgh-lsgvmpj and prescription medicines only as told by [...] Watch your condition for any changes. Take xmtb-aqd-htqvdry and prescription medicines only as told by [...] provider. Document Revised: 03/22/2020 Document Reviewed: 06/12/2019 [employer] Patient Education 2022 [employer]. Follow Up Care 03/15/2023 11:45:15 With:Your surgeon Dr. Magaña Address:Unknown When:03/16/2023 17:30:59 [facility]01-29-2024 Evaluation + Plan noteExtracted from: Title:ED [...] Date:08/04/2023 09:45:00 AM Scheduled Provider:Rajni Rouse MD Location:[facility] Appointment Type:URO Office Visit Future Scheduled Tests Radiology* US Renal 06/10/22 [facility]01-24-2024 Hospital Discharge instructions* Discharge Instr - Diet* Yue German RN - 03/10/2023 3:19 PM EST Regular Diet [facility] Work Phone: [phone] History of Present illness Narrative* Keesha Jack [...] Pt cleared for dc. Updates ent to [facility] who the pt has already been active with, F2F, dc summary and AVS sent via [employer], [facility] in 1-2 days. Pt ok to dc. 03/10/23 5738 Discharge Planning Patient expects to be discharged to: [facility] * JAMA Judd - 03/10/2023 11:32 AM EST Images from [...] for p.o. Valium and Percocet sent to [facility] pharmacy - Follow-up orders placed for 1 month virtual appoint with Dr. Magaña - Work note faxed to her work as well as uploaded into [employer]) - Cleared for discharge from vascular standpoint. [...] LE Dressing: Yes LE Dressing Adaptive Equipment: Marine Water Tender, Sock aide Pants Level of Assistance: Setup, [...] functional mobility a short household distance at [facility] for safety with close S. Pt demonstrating fair+/good standing balance with increased fatigue noted throughout task Outcome Measures:[facility] Daily Activity Putting on and [...] via laparotomy (03/05). Spoke with RN and FIRE CONTROL ASSISTANT regarding plans for consult. Theplan is for [...] 4 mg, 4mg, intravenous, q8h PRN, Chrissy Hraris PA-C, 4 mg at 03/09/23 0544 oxyCODONE-acetaminophen [...] LE Dressing: Yes LE Dressing Adaptive Equipment: Marine Water Tender, Sock aide Pants Level of Assistance: Setup, [...] advice provided to abside by precautions Outcome Measures:[facility] Daily Activity Putting on and [...] INDICATION: Signs/Symptoms:post op COMPARISON: None ACCESSION NUMBER(S): [id number] ORDERING CLINICIAN: JASON FOSTER TECHNIQUE: Frontal and [...] Sara Zarate 03/06/2023 1:48 PM Dictation workstation: [id number] Physical Exam Constitutional: Appearance: Normal appearance. HENT: [...] steps, 1 rail, non-reciprocating pattern. Outcome Measures: [facility] Basic Mobility Turning from your [...] ILIANA Morrell - 03/09/2023 9:24 AM EST [facility] pt is already active with them and are able to continue to provide Rn for tpn and added PT. 03/09/23 0923 Discharge Planning Patient expects to be discharged to: [facility] * ILIANA Morrell - 03/08/2023 2:52 PM EST [facility] with pt at bedside. Pt lives in a house with her and 3 kids in two story house with first floor setup. 5 steps to enter the house. Pt drives, works, independent for mobility. Pt wears glasses. Only other medical supplies at home are for TPN. Pts PCP is Dr Jaquan Morrow with [facility], prescriptions filled through [facility] in [place]. Discussion around dc planning needs with the pt stating she will probably benefit from home health PT. Referrals sent to homecare agencies that service where she lives, these agencies include [facility], [address], [facility], [facility], [facility], await responses. 03/08/23 1452 Discharge Planning Patient expects to be discharged to: Home with [facility] * Anam Khoury, PT - 03/08/2023 [...] prior to attempting to sit Outcome Measures: [facility] Basic Mobility Turning from your [...] 03/06/23 Expected End: 03/20/23 * Carmen Chen, CORPORATE HUMAN RESOURCES MANAGER - 03/08/2023 12:47 PM EST Occupational Therapy OT Treatment Patient Name: Abbey KIMN: [id number] Today's Date: 03/08/2023 Time Calculation Start Time: [...] required d/t increase pain and fatigue Outcome Measures:[facility] Daily Activity Putting on and [...] all functional tasks by discharge. Outcome: Progressing ELL * Alicia Toro APRN-FIRE CONTROL ASSISTANT - 03/08/2023 11:04 AM EST Abbey Garcia [...] INDICATION: Signs/Symptoms:post op COMPARISON: None ACCESSION NUMBER(S): [id number] ORDERING CLINICIAN: JASON FOSTER TECHNIQUE: Frontal and [...] Sara Zarate 03/06/2023 1:48 PM Dictation workstation: [id number] Physical Exam Constitutional: Appearance: Normal appearance. HENT: [...] to be responding well to Compazine. * Jason Foster, JAMA - 03/07/2023 4:29 PM EST Abbey Garcia [...] INDICATION: Signs/Symptoms:post op COMPARISON: None ACCESSION NUMBER(S): [id number] ORDERING CLINICIAN: JASON FOSTER TECHNIQUE: Frontal and [...] Sara Zarate 03/06/2023 1:48 PM Dictation workstation: [id number] Physical Exam Constitutional: Appearance: Normal appearance. HENT: [...] Dr. Magaña; impaired mobility Referred By: Jason Foster, PERIOPERATIVE ASSISTANT-FIRE CONTROL ASSISTANT Past Medical History Relevant to Rehab: MALS, [...] due to increased fatigue levels. Outcome Measures: [facility] Basic Mobility Turning from your [...] INDICATION: Signs/Symptoms:post op COMPARISON: None ACCESSION NUMBER(S): [id number] ORDERING CLINICIAN: JASON FOSTER TECHNIQUE: Frontal and [...] Sara Zarate 03/06/2023 1:48 PM Dictation workstation: [id number] Physical Exam Constitutional: General: She is not [...] proph Karma Sharpe MD * Jason Foster, PERIOPERATIVE ASSISTANT-FIRE CONTROL ASSISTANT - 03/06/2023 1:57 PM EST Abbey Garcia [...] 50 mg, oral, BID Continuous medications potassium efvkcloa-Y4-9.9%NaCl, 125 mL/hr, Last Rate: 125 mL/hr (03/06/23 [...] Laparotomy on 03/05, impaired ADL's Referred By: JAMA Lynn Past Medical History [...] recliner for comfort Prior Function: Level of [place]: Independent with ADLs and functional transfers, Independent with homemaking with ambulation ADL Assistance: Independent Homemaking Assistance: Independent Ambulatory Assistance: Independent 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) Hand Dominance: Right Prior Function Comments: pt was active and driving in community; 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 Critical Care Medicine Date: 03/06/2023 Patient: Abbey Garcia Date of : 1990 Admit Date: 03/05/2023 No chief complaint on file. History of Present Illness: Abbey Garica is a 32 y.o. year old female [...] line in place for TPN. Long and damaris post-op - likely remove tomorrow or when [...] the morning. Take before meals. 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 ODT (Zofran-ODT) 4 [...] Grandmother Diabetes Paternal Grandmother Grandmother Asthma Brother [facility] Medications: potassium ckbmojsf-A3-6.9%NaCl, 125 mL/hr, Last Rate: 125 mL/hr (03/06/23 [...] BID, Desmond Tirado PA-C, 10 mg at 03/05/232 dextrose 10 % in water (D10W) infusion, [...] mg, 20 mg, intravenous, BID, Baldomero Richards, [facility], 20 mg at 03/05/23 214 ferrous sulfate [...] ICU skin protocol Ethics/Code Status: Full code Pulp Drier: DVT Prophylaxis: Lovenox GI Prophylaxis: pepcid Bowel Regimen: miralax Diet: Clear liquids CVC: none Fine: yes - left radial Long: yes Restraints: no Dispo: ICU Critical Care Time: 40 minutes Chrissy Harris PA-C documented in this [facility] Work Phone: 1(791) 296-458101-24-2024 Nurse Note* Edilia Darby RN - 03/10/2023 11:57 AM EST Patient with Rt arm dual lumen picc, dressing D&I, red lumen in use without difficulty, purple lumen flushes easily and with positive blood return, curos cap applied. [facility]01-24-2024 Nurse Note* Edilia Darby RN [...] scanned for over 650cc, pt straight cath [id number] * Olga Paz RN - 03/07/2023 5:47 [...] will reach out to vascular doctor and BLEACH MACHINE OPERATOR for the order. * Ron Mancera RN - 03/05/2023 1:58 PM EST Informed LIQUOR GRINDING MILL OPERATOR to ask Dr. Magaña for admit orders prior to transfer. documented in this [facility] Work Phone: [phone] 420-997901-24-2024 Nurse Note* Nadia Zee RN - 03/10/2023 11:36 AM EST Long catheter removed [facility]01-24-2024 Nurse Note* Eileen Austin RN - 03/10/2023 12:14 AM EST Blood sugar 79 gave patient hailee crackers and pudding. Complained 7/10 pain percocet was given [facility]01-23-2024 Consult note* Jin Vargas MD [...] Irritable bowel syndrome, Median arcuate ligament syndrome ([facility]/HCC), PCOS (polycystic ovarian syndrome), PONV (postoperative nausea and vomiting), PUD (peptic ulcer disease), and Shortness of breath. She has no past medical history of MARSHAL (acute kidney injury) ([facility]), Autoimmune disorder ([facility] Bipolar disorder ([facility]), BPH (benign prostatic hyperplasia), Cerebral aneurysm, Cervical cancer ([facility]), Cervical disc disease, Chronic kidney disease, CKD (chronic kidney disease), Cognitivedecline, Crohn's disease ([facility]), Dementia ([facility]), Dysphagia, Endometrial cancer ([facility]), Esophageal cancer ([facility]), Esophageal disease, ESRD (end stage renal disease) ([facility]), Fibromyalgia, primary, Fractures, Gastric cancer ([facility]), Gender dysphoria, GI (gastrointestinal bleed), Hemodialysis status ([facility]), Hernia, internal, History of peritoneal dialysis, HIV disease ([facility]), Immunocompromised ([facility]), Liver disease, Lumbar disc disease, Mastocytosis, MS (multiple sclerosis) ([facility]), Muscular dystrophy ([facility] Myasthenia gravis ([facility] Neuromuscular disorder ([facility]), Ovarian cancer ([facility]), Pancreatitis, Peptic ulcer disease, Prematurity, PTSD (post-traumatic stress disorder), Schizophrenia ([facility]), Seizure disorder ([facility]), Spinal stenosis, Substanceaddiction ([facility]/HCC), Syncope, TIA (transient ischemic attack), Ulcerative [...] care of this patient. Jin Vargas MD [facility] Work Phone: 1(433) 685-624001-23-2024 Consult note* Jin Vargas MD - 03/09/2023 [...] medical history of MARSHAL (acute kidney injury) ([facility]), Autoimmune disorder ([facility]/HCC), Bipolar disorder ([facility]/HCC), BPH (benign prostatic hyperplasia), Cerebral aneurysm, Cervical cancer ([facility]/HCC), Cervical disc disease, Chronic kidney disease, CKD (chronic kidney disease), Cognitivedecline, Crohn's disease ([facility]/HCC), Dementia ([facility]/HCC), Dysphagia, Endometrial cancer ([facility]/HCC), Esophageal cancer ([facility]/HCC), Esophageal disease, ESRD (end stage renal disease) ([facility]), Fibromyalgia, primary, Fractures, Gastric cancer ([facility]/HCC), Gender dysphoria, GI (gastrointestinal bleed), Hemodialysis status ([facility]), Hernia, internal, History of peritoneal dialysis, HIV [...] 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 Ramos over the [facility]. Currently any oral intake will result [...] 20 mg, 20 mg, intravenous, BID, Baldomero Richards [facility], 20 mg at 03/06/23 0854 ferrous sulfate [...] Follow up Comment: 03/09/23 documented in this [facility] Work Phone: 1([phone] 299-729901-23-2024 Nurse Note* Yue Ferris RN - 03/09/2023 2:22 PM EST Upon rounding right upper arm dual lumen PICC with current CHG dressing dry and intact. One lumen in use, one with brisk blood return and flushes easily, Curos cap intact. [facility]01-22-2024 Plan of care note* Care Plan - Danny Middleton RN - 03/08/2023 11:21 PM EST The patient's goals for the shift include rest The clinical goals for the shift include pain will be controled overnight. [facility]01-22-2024 Miscellaneous Notes* Care Plan - [...] Promote/optimize nutrition Outcome: Progressing Flowsheets (Taken 03/08/2023 0878) Promote/optimize nutrition: Monitor/record intake including meals Consume [...] RN Outcome: Progressing 03/05/2023 1549 by Ron Mancear RN Outcome: Progressing * Perioperative Nursing Note [...] Procedures Release Median Arcuate Ligament by LAPAROTOMY [id number] - ID UNLISTED PX ABDOMEN MUSCULOSKELETAL SYSTEM Surgeons * Sherry Magaña - Primary Resident/Fellow/Other Campus Recruiter: Surgeon(s) and Role: Procedure Summary Anesthesia: General ASA: III Anesthesia Staff: Anesthesiologist: Serena George DO BARIATRIC NURSE: Maricruz Yip APRN-THOMAS Estimated Blood Loss: 2mL [...] EXAM Sherry Magaña MD 03/05/2023 1125 Staff: Production Line Worker: Mary Mccabe RN; Natalie Young RN Scrub Person: Nadia Escobedo; Thu Ford Drains and/or Catheters: NG/OG/Feeding Tube NG - Millard sump 16 Fr Right nostril (Active) Tube [...] MEMBRANE, SEPRAFILM, 5 X 6 IN - [id number] Implanted Findings: heavily inflammed ligamentous tissues and [...] entire procedure. Sherry Magaña documented in this [facility] Work Phone: 1(295) 550-181301-22-2024 Plan of care note* Care Plan - [...] meds throughout the shift Outcome: Progressing . [facility]01-22-2024 Plan of care note* Care Plan - Olga Paz RN - 03/08/2023 2:27 AM EST The patient's goals for the shift include rest The clinical goals for the shift include increase activity Over the shift, the patient did not make progress toward the following goals. Barriers to progression include weak/pain. Recommendations to address these barriers include administer medications/interventions as ordered. [facility] Work Phone: 1([phone]) 286-327101-22-2024 Nurse Note* Olga Paz RN - 03/08/2023 1:[address] Oconnor notified of retained urine. Order to insert long catheter. 16F long catheter placed, clear yellow urine return. Pt tolerated well. [facility]01-22-2024 Nurse Note* Olga Paz RN - 03/08/2023 12:48 AM EST Pt unable to urinate but continues to have an urge to do so. Bladder scan performed with 1152ml found. Page out to hospitalist. [facility] Work Phone: [phone]) 558-998101-21-2024 Nurse Note* Nadia Zee RN - 03/07/2023 5:09 PM EST Pt with 10cc urine output since long removed, bladder scanned for over 650cc, pt straight cath [id number] [facility] Work Phone: [phone] 171-594701-21-2024 Plan of care note* Care Plan - Nadia Zee RN - 03/07/2023 8:50 AM EST The patient's goals for the shift include rest The clinical goals for the shift include increase activity Over the shift, the patient did not make progress toward the following goals. Barriers to progression include . Recommendations to address these barriers include . [facility] Work Phone: [phone] 319-123701-21-2024 Nurse Note* Olga Paz RN - 03/07/2023 5:47 AM EST Long catheter removed per order. Pt tolerated well [facility] Work Phone: 1(789) 255-928001-20-2024 Plan of care note* Care Plan - Olga Paz RN - 03/06/2023 8:57 PM EST The patient's goals for the shift include rest The clinical goals for the shift include increase activity Over the shift, the patient did not make progress toward the following goals. Barriers to progression include weak/pain. Recommendations to address these barriers include encouragement/administer medications/interventions as ordered. [facility] Work Phone: [phone] 808-118501-20-2024 Nurse Note* Vic Gilliland RN - 03/06/2023 4:22 PM EST Seeking clarification of appropriate disposition of patient and possible transfer to SDU. Patient understands possibility of transfer. 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 Ramos over the [facility]. Currently any oral intake will result [...] mg, 20 mg, intravenous, BID, Baldomero Richards, [facility], 20 mg at 03/06/23 0854 ferrous sulfate [...] Needed?: 3-5 days Follow up Comment: 03/09/23 [facility]01-20-2024 Plan of care note* Care Plan [...] Recommendations to address these barriers include steroids. [facility] Work Phone: [phone] 694-920101-20-2024 Nurse Note* Vic Gilliland RN - 03/06/2023 9:01 AM EST Returned to bed with assist of two. Head of bed elevated 45 degrees. [facility] Work Phone: 1([phone]) 214-908001-19-2024 Nurse Note* Ron Mancera RN - 03/05/2023 4:[address] Magaña at bedside, informed of the muscle spasm and administering PRN diazepam. No new orders placed. Plan to remove NGT tomorrow morning. [facility] Work Phone: [phone]) 918-507801-19-2024 Plan of care note* Care Plan - [...] improved pain control throughout the shift 03/05/2023 154 by Ron Mancera RN Outcome: Progressing 03/05/2023 1549 by Ron Mancera RN Outcome: Progressing Goal: Free from opioid side effects throughout the shift 03/05/2023 1549 by Ron Mancera RN Outcome: Progressing 03/05/2023 1549 by Ron Mancera RN Outcome: Progressing Goal: Free from acute confusion related to pain meds throughout the shift 03/05/2023 154 by Ron Mancera RN Outcome: Progressing 03/05/2023 154 by Ron Mancera RN Outcome: Progressing [facility] Work Phone: [phone] 815-306801-19-2024 History and physical note* Desmond Tirado PA-C - 03/05/2023 2:49 PM EST [facility] Critical Care Medicine Date: 03/05/2023 Patient: [...] line in place for TPN. Long and damaris post-op - likely remove tomorrow or when [...] the morning. Take before meals. 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 ODT (Zofran-ODT) 4 [...] Grandmother Diabetes Paternal Grandmother Grandmother Asthma Brother [facility] Medications: Current Facility-Administered Medications: acetaminophen (Tylenol) [...] ICU skin protocol Ethics/Code Status: Full code Pulp Drier: DVT Prophylaxis: none GI Prophylaxis: pepcid Bowel Regimen: miralax Diet: NPO CVC: none Fine: yes - left radial Long: yes Restraints: no Dispo: ICU Critical Care Time: 60 minutes spent in preparing to see patient (I.e.labs,imaging, etc.), documentation, discussion plan of care with patient/family/caregiver, and/ or coordination of care with multidisciplinary team including the attending. Time does not include completion of procedure time. Desmond Tirado PA-C [facility] Work Phone: 1([phone] 433-201901-19-2024 History and physical note* Desmond Tirado PA-C - 03/05/2023 2:49 PM EST [facility] Critical Care Medicine Date: 03/05/2023 Patient: [...] line in place for TPN. Long and damaris post-op - likely remove tomorrow or when [...] the morning. Take before meals. 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 ODT (Zofran-ODT) 4 [...] Grandmother Diabetes Paternal Grandmother Grandmother Asthma Brother [facility] Medications: Current Facility-Administered Medications: acetaminophen (Tylenol) [...] ICU skin protocol Ethics/Code Status: Full code Pulp Drier: DVT Prophylaxis: none GI Prophylaxis: pepcid Bowel Regimen: miralax Diet: NPO CVC: none Fine: yes - left radial Long: yes Restraints: no Dispo: ICU Critical Care Time: 60 minutes spent in preparing to see patient (I.e.labs,imaging, etc.), documentation, discussion plan of care with patient/family/caregiver, and/ or coordination of care with multidisciplinary team including the attending. Time does not include completion of procedure time. 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 Ramos over the [facility]. Currently any oral intake will result [...] to review the CT angiogram done at [facility]. She is going to undergo a celiac [...] with Dr. Deacon Kat. documented in this [facility] Work Phone: 1(691) 927-460401-19-2024 Nurse Note* Ron Mancera RN - 03/05/2023 2:01 PM EST Patient in the unit from PACU, unable to transfer in [facility]. No admit order yet. PACU Rns saw the warning note when trying to transfer the patient without admit orders. PACU staff will reach out to vascular doctor and BLEACH MACHINE OPERATOR for the order. [facility] Work Phone: 1(926) 196-439101-19-2024 Nurse Note* Ron Mancera RN - 03/05/2023 1:58 PM EST Informed LIQUOR GRINDING MILL OPERATOR to ask Dr. Magaña for admit orders prior to transfer. [facility] Work Phone: 1(827) 883-756201-19-2024 Note* Perioperative Nursing Note - Samantha Fields RN - 03/05/2023 1:52 PM EST Patient meets PACU discharge criteria. [facility]01-19-2024 Note* Perioperative Nursing Note - Samantha Fields RN - 03/05/2023 1:07 PM EST Patient to PACU bay 7 with left radial art line in place. Zeroed and waveforms appropriate. Clean/dry and intact. VSS. [facility] Work Phone: [phone]) 360-748701-19-2024 Note* Op Note - Sherry Magaña MD [...] Procedures Release Median Arcuate Ligament by LAPAROTOMY [id number] - ID UNLISTED PX ABDOMEN MUSCULOSKELETAL SYSTEM Surgeons * Sherry Magaña - Primary Resident/Fellow/Other Campus Recruiter: Surgeon(s) and Role: Procedure Summary Anesthesia: General ASA: III Anesthesia Staff: Anesthesiologist: Serena George DO BARIATRIC NURSE: Maricruz Yip APRN-THOMAS Estimated Blood Loss: 2mL [...] EXAM Sherry Magaña MD 03/05/2023 1125 Staff: Production Line Worker: Mary Mccabe RN; Natalie Young RN Scrub Person: Nadia Escobedo; Thu Ford Drains and/or Catheters: NG/OG/Feeding Tube NG - Millard sump 16 Fr Right nostril (Active) Tube [...] MEMBRANE, SEPRAFILM, 5 X 6 IN - [id number] Implanted Findings: heavily inflammed ligamentous tissues and [...] the entire procedure. 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 Ramos over the [facility]. Currently any oral intake will result [...] to review the CT angiogram done at [facility]. She is going to undergo a celiac [...] discuss with Dr. Deacon Kat. [facility] Work Phone: 1(855) 433-674212-14-2023 NoteHNO ID: [id number] Author: Rylee Thacker APRN.FIRE CONTROL ASSISTANT Service: ? Author Type: Nurse Practitioner Type: Progress Notes Filed: 01/28/2023 3:12 PM Note Text: [facility]23 Miscellaneous Notes* Telephone Encounter - Laura Rodas RN - 01/18/2023 9:20 AM EST Call placed to [facility] to confirm received potassium orders for (K-2.9). No answer and left message for Thea pattern carrier from [facility]. (Do not feel Dr. Kat is managing TPN as well) * Telephone Encounter - Dorita Manning - 01/15/2023 11:47 AM EST [facility] called regarding potassium level. Level was 2.9. Patient already on max dose of potassium allowed with her TPN. They are asking for recommendations # [phone] documented in this encounterThe [facility]11-27-2023 Miscellaneous Notes* Telephone Encounter - [...] if so ok to call her back [phone] Ok to leave a message documented in this encounterThe [facility]11-27-2023 Miscellaneous Notes* Telephone Encounter - Fern Jonas LPN - 01/11/2023 10:49 AM EST Surg request placed, pt aware, instructions given verbally and via mychart, all questions and concerns addressed. documented in this encounterThe [facility] Of [facility]11-27-2023 NoteHNO ID: [id number] Author: Fern Jonas LPN Service: ? Author Type: LICENSED NURSE Type: Progress Notes Filed: 01/11/2023 10:42 AM Note Text: Please verify and cosign [facility]-27[facility] History of Present illness Narrative* Fern Jonas LPN - 01/11/2023 10:37 AM EST Please verify and cosign Fern Jonas LPN documented in this encounterThe [facility] Of [facility]11-24-2023 NoteMer[facility]ard [facility]11-24-2023 History of Present illness Narrative* Vic [...] the following interventional pain procedures: none. Relevant [facility] records were reviewed. 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 Electronically Signed: iVc Ramos MD January 08, 2023 4:05 PM [...] which included preparing to see the patient, gpvq-gq-gzak patient care, completing clinical documentation, obtaining and/or reviewing separately obtained history, counseling and educating the patient/family/caregiver, ordering medications, stevan ts, or procedures, communicating with other HCPs (not separately reported), independently interpreting results (not separately reported), communicating results to the patient/family/caregiver, and care coordination (not separately reported). Vic Ramos MD January 08, 2023 documented in this encounterThe [facility]11-22-2023 Miscellaneous Notes* Telephone Encounter - [...] to pain for visit. documented in this encounterThe [facility] Of [facility]11-16-2023 Hospital Discharge instructions Patient Education [...] oral rehydration solution (ORS). This is an yezq-mjv-kdjglqp medicine that helps return your body to [...] drinks, sports drinks, and soda. Eat bland, yzxh-co-bcdnyu foods in small amounts as you are able. These foods include bananas, applesauce, rice, lean meats, toast, and crackers. Avoid alcohol. Avoid spicy or fatty foods. Medicines Take xhyi-mjy-vxvapuo and prescription medicines only as told by your health care provider. If you were prescribed an antibiotic medicine, take it as told by your health care provider. Do notstop using the antibiotic even if you start to feel better. General instructions Wash your hands often using soap and water. If soap and water are not available, use a hand oyster picker. Others in the household should wash their [...] soap and water are not available, usehand oyster picker. Contact a health care provider if your diarrhea gets worse or you have new symptoms. Get help right away if you have signs of dehydration. This information is not intended to replace advice given to you by your health care provider. Make sure you discuss any questions you have with your health care provider. Document Revised: 08/13/2021 Document Reviewed: 08/13/2021 [employer] Patient Education 2022 [employer]uvvu. 12/31/2022 16:02:59 Abdominal Pain, Adult Abdominal Pain, [...] Follow these instructions at home: Medicines Take ixih-xog-kmekyet and prescription medicines only as told by [...] Watch your condition for any changes. Take exlx-czs-xiwizac and prescription medicines only as told by [...] provider. Document Revised: 03/22/2020 Document Reviewed: 06/12/2019 [employer] Patient Education 2022 [employer]uvvu. Follow Up Care 12/31/2022 12:31:54 With:Jaquan Morrow Address: [address] [place] [phone] Business (1) When:01/03/2023 15:35:16 [facility]11-16-2023 Evaluation + Plan noteExtracted from: Title:ED [...] Date:01/20/2023 10:00:00 AM Scheduled Provider:Rajni Rouse MD Location:[facility] Appointment Type:URO Office Visit Future Scheduled Tests Radiology* US Renal 06/10/22 [facility]11-13-2023 Miscellaneous Notes* Telephone Encounter - Shanique Manning HUC - 12/28/2022 4:05 PM EST BMI Incoming Patient Nursing Line Call Summary: Situation/Concerns Melisa Potter's called [phone] called and said Abbey needs a RTWletter [...] Telephone Encounter. CHRIS Katz documented in this encounterThe [facility] Of [facility] Center10-30-2023 History of Present illness Narrative* [...] visit. Either the patient or their legal dealer compliance representative has been informed of the risks [...] opinion. Deacon Kat MD documented in this encounterThe [facility] Of [facility]10-30-2023 NoteMer[facility]10-25-2023 NoteMer[facility]10-25-2023 NoteMer[facility]10-25-2023 NoteMer[facility]10-24-2023 Note [facility]10-23-2023 NoteMer[facility]10-23-2023 NoteMer[facility]10-23-2023 NoteMer[facility] 12-04-2022 History and physical note* Agustin [...] started since her last admission to [facility] last week. Patient's weight has been [...] 12/16/2022 Time: 2:19 PM documented in this encounterThe [facility] Of [facility] Center10-19-2023 Miscellaneous Notes* Telephone Encounter - Oliva Dobbs RN - 12/03/2022 2:00 AM EDT BMI SPECIALTY CARE COORDINATION TELEPHONE ENCOUNTER Patient hospitalized 11/27 unsure if d/c. Referred to Dr Kat who referred to Dr Zamorano [facility] of hypothyroidism, HTN, gastric ulcer, [...] for MALS- plans for surgical intervention at [facility] Consult scheduled with Dr Zamorano on 12/04. Will r/s if pt still in house. 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 Patient received a PICC line for home TPN to bridge her to surgery. Patient is scheduled with Dr. Zamorano for virtual consult 12/04/2022. Patient with increasednausea with TPN, [facility] continues to adjust medications. Li Kimball RN documented in this encounterThe [facility] Of [facility] Center10-14-2023 NoteHNO ID: [id number] Author: Note, Interface Service: ? Author Type: ? Type: Progress Notes Filed: 11/28/2022 5:10 AM Note Text: Epic Scheduled Downtime: 11/28/2022 1:00:00 AM to 11/28/2022 1:28:00 [facility]10-14-2023 NoteHNO ID: [id number] Author: Note, Interface Service: ? Author Type: ? Type: Progress Notes Filed: 11/28/2022 3:45 AM Note Text: Epic Scheduled Downtime: 11/28/2022 1:00:00 AM to 11/28/2022 1:28:00 [facility]5879 NoteHNO ID: [id number] Author: Note, Interface Service: ? Author Type: ? Type: Progress Notes Filed: 11/28/2022 3:27 AM Note Text: Epic Scheduled Downtime: 11/28/2022 1:00:00 AM to 11/28/2022 1:28:00 [employer] [facility] [employer]10-12-2023 NoteHNO ID: [id number] Author: Quyen Deshpande RN Service: ? Author Type: Registered Nurse Type: Progress Notes Filed: 11/26/2022 10:37 AM Note Text: Patient in office for hydration infusion. Patient tolerated infusion well. [facility]Ztbetvmb95[facility]-5115 Miscellaneous Notes* Telephone Encounter - Kristin Hu RN - 11/25/2022 12:55 PM EDT Left message confirming pts appt tomorrow in the chronic care clinic for hydration. documented in this encounterThe [facility] Of [facility] Center10-09-2023 Miscellaneous Notes* Telephone Encounter - Li Kimball RN - 11/23/2022 2:26 PM EDT Mesenteric ultrasound [facility]20[facility] at [facility], patient notified. Li Kimball RN * Telephone Encounter - Li Kimball RN - 11/23/2022 12:31 PM EDT I spoke to the patient's and advised that I have a request out to [facility] for IV hydration and Dr. Kat has [...] pain. Li Kimball RN documented in this encounterThe [facility] Of [facility] Center10-08-2023 [facility] 11-22-2022 [facility] HospitalUpdkmrcn02-53-9034 NoteBaystate Noble HospitalAawvfenn45-91-6372 NoteHNO ID: [id number] Author: Rajni Walsh RN Service: ? Author Type: Registered Nurse Type: Nursing Progress Note Filed: 11/18/2022 10:13 AM Note Text: Other: C/o ultram not working.Will see about another order.Urine was sent to lab.Will reassess.[facility] HospitalPnnfvhza14-40-7940 NoteBaystate Noble HospitalBqxkdraw53-10-1605 Miscellaneous Notes* Telephone Encounter - Li Kimball RN - 11/16/2022 11:51 AM EDT Patient called and states she continues to have abdominal pain and is asking for a Tramadol prescription. Patient also asking for IV fluids as her fluid intake is still not normal. Li Kimball RN documented in this encounterThe [facility] Of [facility]09-29-2023 NoteHNO ID: [id number] Author: Pablo Lebron PSYD Service: ? Author Type: Psychologist Type: Progress Notes Filed: 11/13/2022 8:36 AM Note Text: Assessment was conducted over the phone due to pt's technical difficulties. Patient is a resident of [place], and completed the assessment over the phone in [place]. Psychologist is licensed and stationed in [place]. 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 Approximately 40 minutes were spent with the patient doing therapy. Whitney Powers [id number] NoteBaystate Noble HospitalHjhzweth58-54-9278 NoteBaystate Noble HospitalSqgbzmye29-74-3850 NoteBaystate Noble HospitalEhvnnhpw53-00-0399 History of Past illness Narrative* Problem Noted [...] of this encounter (statuses as of 11/17/2022) [facility]09[facility]27[facility] History of Past illness Narrative* [...] of this encounter (statuses as of 11/18/2022) [facility]09[facility]27[facility] History of Past illness Narrative* [...] of this encounter (statuses as of 11/21/2022) [facility] History of Past illness Narrative* [...] of this encounter (statuses as of 11/24/2022) [facility] of Past illness Narrative* [...] of this encounter (statuses as of 11/25/2022) [facility] of Past illness Narrative* [...] of this encounter (statuses as of 11/27/2022) [facility] History of Past illness Narrative* [...] of this encounter (statuses as of 12/02/2022) [facility] of Past illness Narrative* [...] of this encounter (statuses as of 12/03/2022) [facility] History of Past illness Narrative* [...] of this encounter (statuses as of 12/15/2022) [facility] History of Past illness Narrative* [...] of this encounter (statuses as of 12/15/2022) [facility] of Past illness Narrative* [...] of this encounter (statuses as of 12/17/2022) [facility] of Past illness Narrative* [...] of this encounter (statuses as of 12/31/2022) [facility] History of Past illness Narrative* [...] of this encounter (statuses as of 01/06/2023) [facility] of Past illness Narrative* [...] of this encounter (statuses as of 01/08/2023) [facility] of Past illness Narrative* [...] of this encounter (statuses as of 01/11/2023) [facility] History of Past illness Narrative* [...] of this encounter (statuses as of 01/11/2023) [facility] History of Past illness Narrative* [...] of this encounter (statuses as of 01/12/2023) [address]27-2023 History of Past illness Narrative* Problem [...] of this encounter (statuses as of 01/18/2023) [facility] of Past illness Narrative* [...] of this encounter (statuses as of 01/18/2023) [facility] History of Past illness Narrative* [...] of this encounter (statuses as of 04/07/2023) [facility] History of Past illness Narrative* [...] of this encounter (statuses as of 05/05/2023) [facility] History of Past illness Narrative* [...] of this encounter (statuses as of 05/07/2023) [facility] History of Past illness Narrative* [...] of this encounter (statuses as of 05/10/2023) [facility] of Past illness Narrative* [...] of this encounter (statuses as of 05/18/2023) [facility] of Past illness Narrative* [...] of this encounter (statuses as of 05/27/2023) [facility] of Past illness Narrative* [...] of this encounter (statuses as of 05/28/2023) [facility] of Past illness Narrative* [...] of this encounter (statuses as of 05/28/2023) [facility] of Past illness Narrative* [...] of this encounter (statuses as of 05/30/2023) [facility]27[facility]20[facility] History of Past illness Narrative* [...] of this encounter (statuses as of 06/02/2023) [facility]09-26-2023 NoteMer[facility] Hospital09-25-2023 Miscellaneous Notes* Telephone Encounter - Li Kimball RN - 11/09/2022 4:40 PM EDT Patient notified that surgery has to be moved to Wednesday as gastroenterology is no longer available to assist. I encouraged the patient to come to [place] ED if pain worsens or she develops an newor other concerning symptoms. Patient stated understanding and had no further questions. Li Kimball RN documented in this encounterThe [facility]09-23-2023 [facility] 11-06-2022 Miscellaneous Notes* Telephone Encounter [...] within 10-15 minutes. Patient remains admitted to [facility] and is scheduled for a HIDA [...] questions. Li Kimball RN documented in this encounterThe [facility] Of [facility]09-22-2023 [facility] 11-06-2022 [facility] HospitalSmwulqjn81-19-3700 History of Present illness Narrative* Agustin Sheets, [...] information regarding radiation safety can be found usingGravitys link: [email or web address] SIGNATURE: RT Oj(Gregory) PATIENT NAME: Abbey Garcia DATE: November 06, 2022 TIME: 10:54 AM PAGER/CONTACT #: documented in this encounterThe [facility]09-20-2023 History of Present illness Narrative* [...] of her CT abdomen pelvis from oct 10 images her JJ anastomosis in the normallocation [...] healthy appearing mucosa. This was traversed. The apztr-lg-xcpkhuo limb was characterized by healthy appearing mucosa. 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 female who presents with abdominal pain. Patient has had multiple weeks of abdominal pain. She has had multiple ER visits in [facility]. She had multiple CT scans with [...] Walker MD 11/02/22 1325 documented in this [facility]09-18-2023 Emergency department Note* Dayanara Montana RN - 11/02/2022 11:44 AM EDT Pt requesting to use the restroom and wants assistance. Stand by assist given pt walk with a slow steady gait at this time without difficulty [facility]09-18-2023 Physician Emergency department Note* Dimitri Walker MD - 11/02/2022 10:55 AM EDT DEPARTMENT OF EMERGENCY MEDICINE CHIEF COMPLAINT Abdominal Pain (Reports has been seen a couple of times with CT scans showing possible kidney stones near [facility], here today because hands turned brown) JANINE Garcia is a 32 y.o. female who presents with abdominal pain. Patient has had multiple weeks of abdominal pain. She has had multiple ER visits in [facility]. She had multiple CT scans with [...] bypass surgeon. Dimitri Walker MD 11/02/22 1325 [facility]09-16-2023 Hospital Discharge instructions* Discharge Instructions* Jalyn [...] sent through Care Everywhere. * Back: Strain (Angolan) documented in [facility]-2023 [facility] 10-26-2022 [facility] HospitalCeetudww81-77-8534 History of Past illness Narrative* Problem Noted [...] of this encounter (statuses as of 10/28/2022) [facility]09-10-2023 History of Past illness Narrative* [...] of this encounter (statuses as of 11/03/2022) [facility]09-10-2023 History of Past illness Narrative* [...] of this encounter (statuses as of 11/03/2022) [facility]09-10-2023 History of Past illness Narrative* [...] of this encounter (statuses as of 11/03/2022) [facility]09-10-2023 History of Past illness Narrative* [...] of this encounter (statuses as of 11/03/2022) [facility]09-10-2023 History of Past illness Narrative* [...] of this encounter (statuses as of 11/04/2022) [facility]09-10-2023 History of Past illness Narrative* [...] of this encounter (statuses as of 11/04/2022) [facility]10[facility]20[facility] History of Past illness Narrative* [...] of this encounter (statuses as of 11/05/2022) [facility]09-10-2023 History of Past illness Narrative* [...] of this encounter (statuses as of 11/05/2022) [facility] History of Past illness Narrative* [...] of this encounter (statuses as of 11/06/2022) [facility]09-10-2023 History of Past illness Narrative* [...] of this encounter (statuses as of 11/06/2022) [facility]09-10-2023 History of Past illness Narrative* [...] of this encounter (statuses as of 11/10/2022) [facility]09-10-2023 [facility] HospitalAtvezlin48-30-5447 Miscellaneous Notes* Telephone Encounter - Li Kimball [...] nausea vomiting and pain return call to [phone] documented in this encounterThe [facility]09-05-2023 Hospital Discharge instructions Patient Education [...] medicines. These include steroids, antibiotics, and some tomc-oqh-hmwpnsb medicines, such as aspirin or ibuprofen. Having [...] Follow these instructions at home: Medicines Take ofqq-qey-mkcnxyq and prescription medicines only as told by [...] provider. Document Revised: 06/07/2021 Document Reviewed: 06/07/2021 [employer] Patient Education 2022 [employer]uvvu. 10/20/2022 12:40:07 Abdominal Pain, Adult Abdominal Pain, [...] Follow these instructions at home: Medicines Take ijoa-acj-vzduzqh and prescription medicines only as told by [...] Watch your condition for any changes. Take fyzz-zmx-pjwxzof and prescription medicines only as told by [...] provider. Document Revised: 03/22/2020 Document Reviewed: 06/12/2019 [employer] Patient Education 2022 Zuvvu. Follow Up Care 10/20/2022 08:06:19 With:Jaquan Morrow Address: [address] [place] [address] Business (1) When:10/23/2022 12:06:27 [facility]09-04-2023 Evaluation + Plan noteExtracted from: Title:ED Note Author:Earnest Jett DO Date:10/19 Abdominal pain (R10.9: Unspe cified abdominal pain) Ordered: acetaminophen-oxycodone, 1 tab(s), Oral, q6hr for 3 day(s), 10 tab(s), Refill(s) 0, [facility]/pharmacy #[id number], 168, cm, 10/19/22 8:44:00 EDT, Height/Length Dosing, [...] nausea, # 10 tab(s), Refills(s) 0, Pharmacy: [facility]/pharmacy #[id number], 168, cm, 10/19/22 8:44:00 EDT, [...] QID, # 280 mL, Refills(s) 0, Pharmacy: [facility]/pharmacy #[id number], 168, cm, 10/19/22 8:44:00 EDT, Height/Length Dosing, 85.6, kg, 10/19/22 8:44:00 EDT, Weight Dosing Automated Diff Basic Metabolic Panel CBC w/ Auto Diff eGFR Extra Blue Tube Extra SST Tube Hepatic Function Panel Lipase Level TSH With T4fr Reflex UA With Cult Reflex XR Chest 2 Views Future Appointments Appointment Date:11/20/2022 02:40:00 PM Scheduled Provider: Location:[facility] Appointment Type:FM Lab Draw Appointment Date:01/20/2023 10:00:00 AM Scheduled Provider:Nasim JOHNSON, Rajni Ballesteros Location:[facility] Appointment Type:URO Office Visit Future Scheduled Tests Laboratory* T3 Free 10/07/22 * Thyroid Stimulating Hormone 10/07/22 * Free T4 10/07/22 Radiology* US Renal 06/10/22 [facility]09-04-2023 Hospital Discharge instructions Follow Up Care 10/19/2022 08:31:02 With:Jon Rivera Address: [place], [address] [phone] Business (1) When:10/22/2022 13:40:06 With:Your GI physician Address:Unknown When:10/22/2022 13:40:01 With:Jaquan Morrow Address: [address] [place], [place] [phone] Business (1) When:Within 3 Day(s) [facility]08-31-2023 Miscellaneous Notes* Telephone Encounter - Ria [...] and advise. Grecia Wallace documented in this encounterThe [facility] Of [facility]08-21-2023 NoteHNO ID: [id number] Author: Pablo Lebron PSYD Service: ? Author Type: Psychologist Type: Progress Notes Filed: 10/05/2022 3:51 PM Note Text: Assessment was conducted over the phone due to pt's technical difficulties. Patient is a resident of [place], and completed the assessment over the phone in [place]. Psychologist is licensed and stationed in [place]. Informed consent was discussed and verbal assent [...] Focused Psychotherapy, Supportive Therapy PROGRESS TO DATE: [facility] Progress: Stable Short Term Condition: Stable GOALS/OBJECTIVES/INTERVENTIONS: To identify and implement tools for effectively managing symptoms of anxiety, stress, and low mood. Approximately 45 minutes were spent with the patient doing therapy. [facility] History of Present illness Narrative* Pablo Lebron PSYD - 10/05/2022 3:07 PM EDT Assessment was conducted over the phone due to pt's technical difficulties. Patient is a resident of [place], and completed the assessment over the phone in [place]. Psychologist is licensed and stationed in [place]. Informed consent was discussed and verbal assent [...] Focused Psychotherapy, Supportive Therapy PROGRESS TO DATE: [facility] Progress: Stable Short Term Condition: Stable GOALS/OBJECTIVES/INTERVENTIONS: To identify and implement tools for effectively managing symptoms of anxiety, stress, and low mood. Approximately 45 minutes were spent with the patient doing therapy. Pablo Lebron PsyD documented in this encounterThe University Of [facility]08-14-2023 Instructions* Patient Instructions* Xiomara Zhou RD - 09/28/2022 8:19 AM EDT 1. [...] Fusion multivitamin soft chews and calcium citrate 9628-3543 mg/day(3 soft chews), and continue Probiotic drink [...] should last 30 minutes. 7. Aim for 7385-3740 calories and 75-100 gm carbs per day Nutrition Monitoring & Evaluation: Maintain BMI < 30 Need for Follow up: 4 months, for conversion anniversary - [phone] documented in this encounterThe [facility] Of [facility]08-14-2023 History of Present illness Narrative* Xiomara Zhou RD - 09/28/2022 8:00 AM EDT The [facility] Nutrition Therapy: Virtual Consult - Re-assessment I have communicated my name and active licensure. The patient s identity and physical location wereverified at the time of this visit. Either the patient or their legal dealer compliance representative has been informed of the risks [...] Fusion multivitamin soft chews and calcium citrate 7081-5086 mg/day(3 soft chews), and continue Probiotic drink [...] should last 30 minutes. 7. Aim for 6387-8230 calories and 75-100 gm carbs per day Nutrition Monitoring & Evaluation: Maintain BMI < 30 Need for Follow up: 4 months, for conversion anniversary - [phone] PROGRESS: Interval History: Patient presents for follow [...] the day. Recently started tracking intake on [employer] bre. Consistent, but likely insufficient protein intake. Following Phase 5 diet currently. 9385-1790 calories/day - meeting low-end needs 60-70 gm protein intake/day - falling below recommendations 60-90 oz fluid intake/day - meeting needs Taking all vitamin/minerals, however insufficient calcium citrate. Labs reviewed, unremarkable. Resting Metabolic Rate:1557 Energy needs for weight loss 0927-3123 (15-20 carina/kg current weight) Protein needs: 85 [...] Fusion One a Day multivitamin capsule PLUS 1576-7196 mg calcium citrate 5. Exercise: strive for [...] Likelihood of Adherence: High Referred by: Jacquelyn MNT Billing Type: Re-assess/15 min 2 units SIGNATURE: Xiomara Zhou RD PATIENT NAME: Abbey Garcia DATE: 09/28/2022 TIME: 7:48 AM PAGER: [phone] documented in this encounterThe University Of [facility] Center08-07-2023 History of Present illness Narrative* Pablo Lebron, PSYD - 09/21/2022 2:04 PM EDT Assessment was conducted over the phone due to pt's technical difficulties. Patient is a resident of [place], and completed the assessment over the phone in [place]. Psychologist is licensed and stationed in [place]. Informed consent was discussed and verbal assent [...] importance of working outside house; balance). 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 Animosity from and mom (not enough time at home). Hurt by mom's words wants to communicate, she internalizes. Marital therapy? Appreciative of family help with kids. 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 Approximately 45 minutes were spent with the patient doing therapy. Pablo Lebron PsyD documented in this encounterThe [facility] Of [facility]08-04-2023 History of Present illness Narrative* Breanna Stern APRN.[facility] - 09/18/2022 3:14 PM EDT BMI SURGERY [...] Total weight loss: 11.3 kg (25 lb) Winslow weight: 70.3 kg (154 lb 14.5 oz) Excess weight: 24.5 kg (54 lb 1.5 oz) % of excess body weight lost: 11.3 kg (25 lb) (46.22% of excess weight loss) COMPLICATIONS SINCE LAST VISIT?: NONE EGD 06/23/22 Findings: The examined esophagus was normal. 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 The gastrojejunal anastomosis was characterized by healthy appearing mucosa. This was traversed. The hxtxu-rg-wmqtalb limb was characterized by healthy appearing mucosa. [...] 40 f bougie). This was traversed. The nzrpq-rh-odhdkio limb was characterized by healthy appearing mucosa. [...] Level: 4 - Moderate documented in this encounterThe [facility] Of [facility]08-04-2023 Nurse Note* Jayla Meza MA [...] Temperature: No Drains: No documented in this encounterThe [facility] Of [facility]06-22-2023 Miscellaneous Notes* Telephone Encounter - [...] the dosing. Susan, Linda documented in this encounterThe [facility] Of [facility]06-14-2023 Hospital Discharge instructions Follow Up Care 07/29/2022 09:18:39 With:Nasim JOHNSON, LILIAN LamarL, URO Address: [address] [place] [address] [address], [place] [phone] When: Unknown [facility] 06-14-2023 Hospital Discharge instructions Patient Education [...] include: ?8 oz (237 mL) of milk, nnbbriu-znewuyhwdzpm-nejic milk, and calcium- fortifiedfruit juice. Calcium-fortified means [...] ?Spinach (cooked), rhubarb, beets, sweet potatoes, and [place] Islander chard. ?Peanuts. ?Potato chips, kittitian fries, and baked potatoes with skin on. ?Nuts and nut products. ?Chocolate. If you regularly take a diuretic medicine, make sure to eat at least 1 or 2 servings of fruits or vegetables that are high in potassium each day. These include: ?Avocado. ?Banana. ?[place], prune, carrot, or tomato juice. ?Baked potato. [...] magnesium, fish oil, or vitamin B6. Take ypah-ume-slupjlc and prescription medicines only as told by [...] Casseroles. Pizza. Lasagna. Frozen meals. Potato chips. Cambodian fries. The items listed above may not [...] provider. Document Revised: 10/13/2021 Document Reviewed: 10/13/2021 [employer] Patient Education 2022 Zuvvu. Follow Up Care 06/30/2022 09:39:02 With:Nasim JOHNSONRajni, URL, URO Address: When: Unknown [facility] 06-13-2023 Instructions* Patient Instructions* Samara Evans [...] blistering or peeling skin. documented in this encounterThe [facility]06-13-2023 History of Present illness Narrative* [...] Past Histories independently gathered by the clinical sales support manager, and the remaining scribed note [...] visit. Samara Evans MD documented in this encounterThe [facility]06-08-2023 Miscellaneous Notes* Telephone Encounter - [...] denying [employer] authorization Full letter scanned in [employer] for review Grecia Wallace * Telephone Encounter [...] 07/23/2022 8:49 AM EDT Fax received from [facility] to notify [employer] not covered, will need PA or prescribe alternative: Noreen Alonzo or Veronique Fax scanned in [facility] Grecia Velasquez [facility] documented in this encounterThe [facility]06-07-2023 History of Present illness Narrative* [...] with cornea provider or optom- closer to [place] [facility] sendmessage Return precautions were discussed in detail Plan reviewed with the patient who verbalizes understanding Donnie David MD Ophthalmology Resident documented in this encounterThe [facility] Of [facility]06-07-2023 History of Present illness Narrative* [...] lesion. Mild degenerative changes. Lower thorax: Unremarkable. Training Systems Officer (topogram) images: No additional findings. CT ABD/PEL [...] Tissues: No acute abnormality. Lower thorax: Unremarkable. Training Systems Officer (topogram) images: No additional findings. US ABD [...] healthy appearing mucosa. This was traversed. The olqze-vu-tbmjwnk limb was characterized by healthy appearing mucosa. [...] 40 f bougie). This was traversed. The tkxwk-vk-fmviecj limb was characterized by healthy appearing mucosa. [...] ceroid-laden histiocytes. There is no interface activity. Shosh[place]-Paiute bile duct branches are identified in nearly [...] MD July 22, 2022 documented in this encounterThe [facility] Of [facility]05-06-2023 History of Past illness Narrative* Problem Noted Date Resolved Date Intractable nausea and vomiting 06/20/2022 06/23/2022 Acute abdominal pain 12/21/2020 06/23/2022 Obesity 09/03/2020 11/29/2020 Abdominal pain 02/01/2020 04/08/2020 Moderate episode of recurrent major depressive d isorder 11/21/2019 01/03/2020 Obesity, Class II, BMI 35-39.9 10/13/2019 1 Last Assessment & Plan: Assessment: BMI 38.74 documented as of this encounter (statuses as of 07/22/2022) [facility]05-06-2023 History of Past illness Narrative* Problem Noted Date Resolved Date Intractable nausea and vomiting 06/20/2022 06/23/2022 Acute abdominal pain 12/21/2020 06/23/2022 Obesity 09/03/2020 11/29/2020 Abdominal pain 02/01/2020 04/08/2020 Moderate episode of recurrent major depressive d isorder 11/21/2019 01/03/2020 Obesity, Class II, BMI 35-39.9 10/13/2019 1 Last Assessment & Plan: Assessment: BMI 38.74 documented as of this encounter (statuses as of 07/22/2022) [facility] History of Past illness Narrative* Problem Noted Date Resolved Date Intractable nausea and vomiting 06/20/2022 06/23/2022 Acute abdominal pain 12/21/2020 06/23/2022 Obesity 09/03/2020 11/29/2020 Abdominal pain 02/01/2020 04/08/2020 Moderate episode of recurrent major depressive d isorder 11/21/2019 01/03/2020 Obesity, Class II, BMI 35-39.9 10/13/2019 1 Last Assessment & Plan: Assessment: BMI 38.74 documented as of this encounter (statuses as of 07/23/2022) [facility] History of Past illness Narrative* Problem Noted Date Resolved Date Intractable nausea and vomiting 06/20/2022 06/23/2022 Acute abdominal pain 12/21/2020 06/23/2022 Obesity 09/03/2020 11/29/2020 Abdominal pain 02/01/2020 04/08/2020 Moderate episode of recurrent major depressive d isorder 11/21/2019 01/03/2020 Obesity, Class II, BMI 35-39.9 10/13/2019 1 Last Assessment & Plan: Assessment: BMI 38.74 documented as of this encounter (statuses as of 07/23/2022) [facility] History of Past illness Narrative* Problem Noted Date Resolved Date Intractable nausea and vomiting 06/20/2022 06/23/2022 Acute abdominal pain 12/21/2020 06/23/2022 Obesity 09/03/2020 11/29/2020 Abdominal pain 02/01/2020 04/08/2020 Moderate episode of recurrent major depressive d isorder 11/21/2019 01/03/2020 Obesity, Class II, BMI 35-39.9 10/13/2019 1 Last Assessment & Plan: Assessment: BMI 38.74 documented as of this encounter (statuses as of 08/03/2022) [facility] History of Past illness Narrative* Problem Noted Date Resolved Date Intractable nausea and vomiting 06/20/2022 06/23/2022 Acute abdominal pain 12/21/2020 06/23/2022 Obesity 09/03/2020 11/29/2020 Abdominal pain 02/01/2020 04/08/2020 Moderate episode of recurrent major depressive d isorder 11/21/2019 01/03/2020 Obesity, Class II, BMI 35-39.9 10/13/2019 1 Last Assessment & Plan: Assessment: BMI 38.74 documented as of this encounter (statuses as of 08/06/2022) [facility] History of Past illness Narrative* [...] of this encounter (statuses as of 09/19/2022) [facility] History of Past illness Narrative* [...] of this encounter (statuses as of 09/22/2022) [facility] of Past illness Narrative* [...] of this encounter (statuses as of 09/28/2022) [facility] of Past illness Narrative* [...] of this encounter (statuses as of 10/06/2022) [facility] of Past illness Narrative* [...] of this encounter (statuses as of 10/15/2022) [facility] of Past illness Narrative* [...] of this encounter (statuses as of 10/21/2022) [facility] of Past illness Narrative* [...] of this encounter (statuses as of 12/21/2022) [facility] History of Present illness Narrative* [...] advised she may send a message on [place] if she has any additional questions. Aliyah Washburn PA-C Orthopaedic & Rheumatologic [facility] Date: June 18, 2022 Time: [...] No Swollen Glands: No documented in this encounterThe [facility]04-28-2023 History of Present illness Narrative* Aliyah Washburn PA-C - 06/12/2022 10:26 AM EDT Images from the original note were not included. Rheumatology Outpatient Clinic Date of Service: 06/12/2022 Patient: Abbey Garcia Medical Record: [id number] Primary Care Physician: Wally Foley MD Last Rheumatology visit: [facility] at [facility] Referring Provider: HENNY Marcus [address] [facility] [address] Consultation requested by Agustin Valentino for an [...] hypothyroidism. Reports she has not seen her clothing and textiles teacher recently. 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 She has not seen clothing and textiles teacher. Would like to rule out endocrine causes [...] which included preparing to see the patient, omey-wb-zock patient care, completing clinical documentation, obtaining and/or reviewing separately obtained history, performing a medically appropriate examination, counseling and educating the pat ient/family/caregiver, and ordering medications, tests, or procedures. Aliyah Washburn PA-C [facility] Date: June 12, 2022 Time: 10:26 AM documented in this encounterThe University Of [facility]04-26-2023 Hospital Discharge instructions Patient Education [...] you until you feel stable. Medicines Take hhft-fnc-cjdhwxn and prescription medicines only as told by [...] provider. Document Revised: 06/12/2021 Document Reviewed: 06/12/2021 [employer] Patient Education 2022 Zuvvu. 06/10/2022 17:05:57 Nonspecific Chest Pain, Adult Nonspecific [...] Follow these instructions at home: Medicines Take bjwy-gig-fmgkzil and prescription medicines only as told by [...] provider. Document Revised: 04/17/2021 Document Reviewed: 04/17/2021 [employer] Patient Education 2022 Zuvvu. Follow Up Care 06/10/2022 12:31:10 With:Chetna Jack Address: [address] [place] [phone] Business (1) When:06/13/2022 17:03:30 Comments:Schedule event loop recorder as well as echocardiogram with central scheduling and then follow-up with drawing checker Dr. Jack With:Jaquan Morrow Address: [address] [place] [phone] Business (1) When:06/13/2022 17:03:46 Comments:Call the office [...] any new or worsening symptoms. [facility]01-20-2023 Nurse Note* Eli Carter RN - [...] None REFERRAL (RECOMMENDATION): None documented in this encounterThe University Of [facility]01-19-2023 Miscellaneous Notes* Telephone Encounter - Victor M Dennis - 03/05/2022 11:54 AM EST Spoke with the patient confirmed 1:45 arrival time for 2:45 appointment at [facility]. Victor M Dennis * Telephone Encounter - Li Kimball RN - 03/05/2022 10:31 AM EST I called patient and left a message with EGD appointment instructions and location. Call back number provided. Li Kimball RN documented in this encounterThe University Of [facility]01-19-2023 Instructions* Patient Instructions* Breanna Stern APRN.BETH - 03/05/2022 10:18 AM EST I have asked scheduling to add you on for an appointment in 2 months for your regular follow up, we'll check your labs at that time. (I've ordered them, no need to fast) We may need to see you sooner based on results of your EGD documented in this encounterThe [facility] Of [facility]01-19-2023 History of Present illness Narrative* [...] Total weight loss: 19.1 kg (42 lb) Winslow weight: 70.3 kg (154 lb 14.5 oz) [...] Orders Breanna Stern APRN.BETH documented in this encounterThe [facility] Of [facility]12-30-2022 History of Present illness Narrative* [...] lateral patellar facet. Bilateral PF crepitance IMPRESSION: (R27.344D) Acetabular labrum tear, right, subsequent encounter (primary encounter diagnosis) PLAN: 1. Medication: None. 2. Test(s)/Imaging/Referral(s): None. 3. Intervention: Continue conservative treatment. Objectively, patients hip is doing well post op. She has been dealing with a right knee injury as well (images were uploaded in the system today). She saw a provider in the [place] area who recommended her have an osteotomy. 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 We discussed the option of seeing Dr. Gutierres for a second opinion as patient is eager to see someone through the [facility] system. We will help her [...] Past Histories independently gathered by the clinical sales support manager and the remaining scribed note accurately describes my personal service to the patient. Kuldip Yousif MD documented in this encounterThe [facility] Of [facility]12-22-2022 Miscellaneous Notes* Telephone Encounter - [...] nausea. Li Kimball RN documented in this encounterThe [facility] Of [facility]12-21-2022 History of Present illness Narrative* Nahed Tamez, DADA - 02/04/2022 9:24 AM EST The [facility] Nutrition Therapy: Virtual Consult - [...] Fusion One a Day multivitamin capsule PLUS 2316-3118 mg calcium citrate daily) 4. Protein goal: 75-93 grams protein/day. 5. Fluid goal: 64oz per day water. (no calories, no caffeine, no carbonation, no alcohol) 6. Call the BMI department at [phone] to schedule your one month post op nutrition visit for February. Link to book as discussed: [email or web address]=en Nutrition Monitoring & Evaluation: Adherence [...] Fusion One a Day multivitamin capsule PLUS 2746-4833 mg calcium citrate 5. Exercise: strive for [...] Garcia DATE: 02/04/2022 TIME: 9:24 AM PAGER: [phone] documented in this encounterThe University Of [facility] Center12-20-2022 Instructions* Patient Instructions* Breanna Stern APRN.[facility] - 02/03/2022 3:42 PM EST Start Omeprazole [...] your activity as tolerated. documented in this encounterThe University Of [facility] Center12-20-2022 History of Present illness Narrative* [...] Total weight loss: 15.4 kg (34 lb) Winslow weight: 70.3 kg (154 lb 14.5 oz) [...] 1 month post op visit. Breanna Stern APRN.FIRE CONTROL ASSISTANT documented in this encounterThe University Of [facility] Center12-20-2022 Nurse Note* Lucia Ramirez MA - 02/03/2022 2:53 PM EST What is the reason for your visit today? Follow up Who is your referring physician? Are you having poor oral intake? A little Have you had unintentional weight loss of 15 lbs/7 Kg in the last 3-6 months? NO Bowels: regular Wound: Temperature: No Drains: No documented in this encounterThe University Of [facility] Center12-20-2022 Miscellaneous Notes* Telephone Encounter - [...] 02/03/2022. Li Kimball RN documented in this encounterThe University Of [facility] Center12-19-2022 Miscellaneous Notes* Telephone Encounter - Li Kimball RN - 02/02/2022 2:39 PM EST See 02/02/2022 MyChart encounter Li Kimball RN * Telephone Encounter - Olga Paul - 02/02/2022 8:46 AM EST Patient called in and will like a refill on pain medication. Patients pharmacy is the [facility] in [place]. Contact# [phone] documented in this encounterThe University Of [facility] Center12-14-2022 History and physical note * [...] Bilateral arthroscopic knee surgery- was catcher in [facility] PAST SURGICAL HISTORY OF 08/2020 [...] Neuro: No history of TIA's, stroke, DIRECTOR OF ACCREDITATION tumor, impaired sensorium, hemiplegia, paraplegia or quadraplegia. No neurological symptoms or problems. Respiratory: +RICHAR, asthma Negative for COPD, Current cough, Dyspnea, Home O2, Pneumonia within 6 weeks (date), Wheezing Cardiovascular: +hx HTN during /post , resolved. Negative for Recent [place], Angina, CAD, Chest Pain, CHF, DVT/PE GI: [...] 2022 TIME: 11:05 AM documented in this encounterThe [facility] Of [facility] Center12-08-2022 Instructions* Patient Instructions* Ioana Hogan PA-C - 01/22/2022 11:55 AM EST PATIENT PREOPERATIVE INSTRUCTIONS Deacon Kat MD has scheduled you for your procedure at this surgery center: [facility]: [phone] --[phone] [address]. Please check in on the1st floor at [...] Procedures: - YOU MUST HAVE A RESPONSIBLE CLIENT SERVICE ASSOCIATE TAKE YOU HOME. A NET C DEVELOPER OR GIN POLE OPERATOR CANNOT BE MADE A RESPONSIBLE CLIENT SERVICE ASSOCIATE. - We recommend that a responsible person stays with you overnight to take care of you. - You cannot stay in a hotel alone after outpatient surgery. You will not be permitted to have yoursurgery, if you do not have someone to take care of you. If you already have an Advance Directive, please fax a copy to [phone] or email to for it to be [...] day. Ioana Hogan PA-C documented in this encounterThe [facility]12-06-2022 Miscellaneous Notes* Telephone Encounter - [...] provided. Li Kimball RN documented in this encounterThe [facility]11-22-2022 Miscellaneous Notes* Telephone Encounter - [...] questions. Li Kimball RN documented in this encounterThe [facility]11-18-2022 Instructions* Patient Instructions* Sabina Joy APRN.BETH - 01/02/2022 11:29 AM EST Images from the original note were not included. Mutually Agreed Upon Goals Eating Plan: [employer] Pal BRE - Log intake 2 days [...] BRE for meditation - Mindful Moments by [facility]. Insight Timer [email or web address]#our-picks How can I fix my acid [...] but are usually stronger and faster than E3hetexjla. Dietary habits for acid reflux Reduce or [...] Try Breakfast: 1 scrambled egg (75 calories) Angolan muffin (67 calories) Calories per meal: 142 AM Snack & Fluids: *Spread out and sipped between meals 2 cups water (0 calories) 1 cup skim milk or unsweetened soy milk (90 calories) Calories per meal: 90 Lunch: 4 oz canned tuna in water (100 calories) 2 Tbsp fat free ortiz (20 calories) 1 slice low fat [place] cheese (50 calories) 1 slice whole grain [...] after gastric sleeve surgery? (Full meal plan) (Debt Resolve) .kml documented in this encounterThe [facility]11-18-2022 History of Present illness Narrative* [...] weight loss: 35 lbs or 14.58 % [place] weight: 70.3 kg (154 lb 14.5 oz) [...] which included preparing to see the patient, gevu-ty-fobv patient care, completing clinical documentation, obtaining and/or reviewing separately obtained history, performing a medically appropriate examination, counseling and educating the pat ient/family/caregiver, independently interpreting results (not separately reported), and communicating results to the patient/family/caregiver. Follow up in 6 months. This visit was performed virtually due to the COVID-19 epidemic as an effort to protect patients and minimize exposure. documented in this encounterThe [facility]11-17-2022 History of Present illness Narrative* Marisabel Lynn LPN - 01/01/2022 2:41 PM EST 2Name: Abbey Garcia CC#: [id number] Date: 01/01/2022 HUERTA 48 HR PH FOLLOW-UP The HUERTA monitor was received today via [employer] transport.. Test data from the counter hand was downloaded. Events from the patient diary were inserted into the study for physician review. .Marisabel Lynn LPN documented in this encounterThe [facility] Of [facility]11-10-2022 History of Present illness Narrative* Marisabel Lynn LPN - 12/25/2021 11:28 AM EST Name: Abbey Garcia CC#: [id number] Date: 12/25/2021 48hr HUERTA PH CAPSULE PLACEMENT [...] hours. .Marisabel Lynn LPN documented in this encounterThe [facility]11-10-2022 Nurse Note* Raegan Sood RN [...] RN In Department: GASTROENTEROLOGY documented in this encounterThe [facility] Of [facility]11-10-2022 History of Present illness Narrative* Mateusz Kraft Research Coordinator - 12/25/2021 9:45 AM ESTSummary: [id number] Study Title: CASE [id number] Genetic and Environmental [...] Mateusz Kraft Research Coordinator documented in this encounterThe [facility]10-05-2022 Miscellaneous Notes* Telephone Encounter - Li Kimball RN - 11/19/2021 10:57 AM EDT I called the patient and left a message for the patient to call [phone], option 0 to schedule the pH Impedence testing. Call back number provided for additional questions or concerns. Li Kimball RN documented in this encounterThe [facility]10-03-2022 History of Present illness Narrative* [...] mcg, Iron 45-60 mg and calcium citrate 4569-1338 mg/day PHYSICAL EXAMINATION General appearance: Well appearing, [...] the date of the service which included avtm-ju-osfp patient care, completing clinical documentation, obtaining and/or reviewing separately obtained history, counseling and educating the patient/family/caregiver, and ordering medications, tests, or procedures. Deacon Kat MD documented in this encounterThe [facility]10-03-2022 Miscellaneous Notes* Telephone Encounter - Grecia Wallace - 11/17/2021 11:21 AM EDT Pharmacy fax requesting refills as follows: Patient scheduled for follow up visit Dec 24 Requested Prescriptions Pending Prescriptions Disp Refills famotidine (PEPCID) 40 mg tablet 90 tablet 1 Sig: Take 1 tablet by mouth once daily. Please review and advise. Grecia Wallace documented in this encounterThe [facility]09-06-2022 Miscellaneous Notes* Telephone Encounter - [...] book slots. Cornel Conrad documented in this encounterThe [facility]09-06-2022 Miscellaneous Notes* Telephone Encounter - Slime Nickerson - 10/21/2021 8:25 AM EDT Called patient to reschedule 10/[address] Yousif will be out of the office in the afternoon that day. Per Dr. Yousif, patient can be rescheduled at [address] on 10/21 between 4:15-5:30 PM or on 10/22 in [place] between 4-6 PM. Do not double book slots. documented in this encounterThe [facility]08-25-2022 Instructions* Patient Instructions* Sabina Joy APRN.CNP - 10/09/2021 3:56 PM EDT Images from the original note were not included. Mutually Agreed Upon Goals Eating Plan: [employer] Pal BRE - Log intake 7 days per week. Replace skipped meals with a protein supplement. Bariatric Plate Method Activity: Walking as tolerated. Chair exercises Sleep: No electronic for 30 minutes prior to sleep 2 nights per week. Practice Sleep Hygiene. CPAP nightly Stress: BRE for meditation - Mindful Moments by [facility]. Alan. Insight Timer [email or web address]-picks Steps to Follow Bariatric Plate Total [...] own fruit infused price >> lemon or [place] with oranges, blackberries, strawberries and fresh mint, [...] with food. Calcium Citrate with Vitamin D 9655-4591 mg calcium - DO NOT TAKE WITH IRON OR MULTIVITAMIN Vitamin D3 - take 3,000 international unit(s) per day from all sources documented in this encounterThe [facility]08-25-2022 History of Present illness Narrative* [...] 32.28 kg/(m^2) Total weight loss: 42 lbs [place] weight: 70.3 kg (154 lb 14.5 oz) [...] which included preparing to see the patient, uxsz-vu-lctn patient care, completing clinical documentation, obtaining and/or reviewing separately obtained history, performing a medically appropriate examination, counseling and educating the pat ient/family/caregiver, ordering medications, tests, or procedures, independently interpreting results (not separately reported), and communicating results to the patient/family/caregiver. Medical Decision Making: Level: 1 - N/A Sabina Joy APRN.BETH documented in this encounterThe [facility]07-16-2022 Hospital Discharge instructions* Discharge Instructions* Pablo Atwood DO - 08/30/2021 4:11 AM EDT Please take all medications as prescribed and follow-up with your oral surgeon on Wednesday as scheduled. * Attachments The following attachments cannot be sent through Care Everywhere. * Tooth: Abscessed (Angolan) documented in [facility] Work Phone: [phone] Miscellaneous Notes* Telephone Encounter - Justine Shabazz PA-C - 08/29/2021 2:55 PM EDT Pharmacy generated request, refill not appropriate. Justine Shabazz PA-C documented in this encounterThe [facility]07-15-2022 Instructions* Patient Instructions* Justine Shabazz [...] and carry free weights documented in this encounterThe [facility]07-15-2022 History of Present illness Narrative* Justine Shabazz PA-C - 08/29/2021 2:16 PM EDT POST OP DISTANCE HEALTH VIRTUAL VISIT DOCUMENTATION NOTE This virtual visit was performed via video enabled technology, and the patient provided consent to be evaluated and managed using this virtual visit and video enabled technology. [employer] Platform: Luminal Virtual Visit People present : Justine Shabazz [...] Nica Shabazz, MS, PA-C documented in this encounterThe [facility]07-14-2022 Instructions* Patient Instructions* Xiomara Zhou RD - 08/28/2021 8:28 AM EDT 1. [...] Fusion One a Day multivitamin capsule PLUS 5739-5039 mg calcium citrate 5. Exercise: strive for [...] or sooner if needed documented in this encounterThe [facility]07-14-2022 History of Present illness Narrative* Xiomara Zhou RD - 08/28/2021 7:54 AM EDT The [facility] Nutrition Therapy: Virtual Consult Re-assessment [...] Fluids: water (64 oz), gatorade zero, Body [place] light Exercise: limited to PT due to [...] Rate: 1635 Energy needs for weight loss 1074-0909 (15-20 carina/kg current weight) Protein needs: 75-93 [...] Fusion One a Day multivitamin capsule PLUS 6985-4918 mg calcium citrate 5. Exercise: strive for [...] Re-assess/15 min 2 units Signed by: Xiomara Zhou RD documented in this [facility]07-08-2022 Evaluation note* Encounter Date Diagnosis Assessment Notes Treatment Notes Treatment Clinical Notes Aug, PTSD (post-traumatic stress disorder) (ICD-10 - F43.10) [employer] Other 07-08-2022 Miscellaneous Notes* Telephone Encounter - Grecia Wallace - 08/22/2021 10:40 AM EDT Pharmacy fax requesting refills as follows: patient has a follow up visit 09/24/21 Pending Prescriptions Disp Refills OMEPRAZOLE 40 MG CAPSULE,DELAYED RELEASE 60 capsule 0 Sig: Take 1 capsule by mouth twice daily. ELIJAH: No Please review and advise. Grecia Munguia documented in this encounterThe [facility]07-03-2022 Evaluation note* Encounter Date Diagnosis [...] system will be more sensitive than normal. [employer] Other 06-30-2022 Miscellaneous Notes* Telephone Encounter - Justine Shabazz PA-C - 08/14/2021 2:51 PM EDT Pharmacy generated request, refill not appropriate. Justine Shabazz PA-C documented in this encounterThe [facility]06-17-2022 Instructions* Patient Instructions* Justine Shabazz [...] hyperextension(moving leg backward) and letting your feet vamp cut out worker when standing or laying flat- until 3 [...] others. Follow-up: 4 weeks documented in this encounterThe [facility]06-17-2022 History of Present illness Narrative* Justine Shabazz PA-C - 08/01/2021 10:55 AM EDT POST OP DISTANCE HEALTH VIRTUAL VISIT DOCUMENTATION NOTE This virtual visit was performed via video enabled technology, and the patient provided consent to be evaluated and managed using this virtual visit and video enabled technology. [employer] Platform: Cafe Pressom Virtual Visit People present : Justine Shabazz PA-C and Patient Time Spent for video encounter, record review and documentation: 15 minutes CHIEF COMPLAINT (CC): Post op right hip HISTORY OF PRESENT ILLNESS (HPI): 3 weeks s/p 1. right hip arthroscopy. 2. Acetabuloplasty CPT 11834 3. Labral repair. CPT 48891 4. Femoroplasty. CPT 95828 5. Capsular Closure DOS: 08/10/21 Denies systemic [...] will review MRI right knee (uploaded in [employer]). She has been referredto physician in [place] and was recommended to have osteotomy, she [...] hyperextension(moving leg backward) and letting your feet vamp cut out worker when standing or laying flat- until 3 [...] Justine Shabazz MS, PA-C documented in this encounterThe [facility]05-20-2022 History of Present illness Narrative* Justine Shabazz PA-C - 07/04/2021 10:59 AM EDT AMBULATORY TELEPHONE VISIT bAbey Garcia has consented to this telephone encounter. Persons Present: patient Chief Complaint/Reason: Pre op right hip HPI: 31 y/o female scheduled for right hip arthroscopy with Dr Yousif 07/10/21 at [facility]. Discussion to ensure optimized for surgery Data Reviewed: Procedure: verified - questions answered Consent: in EPIC - not signed Imaging: outside MR an XR in [facility] with report scanned - views [...] check with PCP about stitch removal Assessment: S73.759D Tear of right acetabular labrum, subsequent encounter (primary encounter diagnosis) Plan: Right hip scope 07/10/[address] Yousif Post op RXs to [facility] J[facility] 07/09/21 PT 07/11/21 Post op follow up 07/30/21 - ideally virtual Total Time Spent: 8 minutes Justine Shabazz PA-C documented in this encounterThe [facility]05-09-2022 History of Present illness Narrative* [...] must be done in radiology at the [facility] to ensure correct views.) Brace fitting: Yes - ( hip brace fit with DJO Rep at [facility]) Pre op PT visit required for HIP [...] up) No. Pre op instructions sent via [employer]. DONAVAN Douglas documented in this encounterThe [facility]05-04-2022 History of Present illness Narrative* Kuldip Yousif MD - 06/18/2021 11:00 AM EDT x * Kuldip Yousif MD - 06/18/2021 10:23 AM EDT Images from the original note were not included. 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 Kuldip Yousif MD documented in this encounterThe [facility]04-18-2022 History of Present illness Narrative* [...] to that time. documented in this encounterOS[facility] * Encounter Date Diagnosis [...] intake. Mar, Other Asthma material was printed [employer] Other 12-14-2021 Evaluation note* Encounter Date Diagnosis [...] to be seen. Also always know the [facility] Emergency Number is 24 hours a [...] surgeon after discussing options and treatment locations. [employer] Other [id number] History of Past illness Narrative* Problem Noted Date Resolved Date Obesity 09/03/2020 11/29/2020 Abdominal pain 02/01/2020 04/08/2020 Moderate episode of recurrent major depressive d isorder 11/21/2019 01/03/2020 Obesity, Class II, BMI 35-39.9 10/13/2019 1 Last Assessment & Plan: Assessment: BMI 38.74 documented as of this encounter (statuses as of 06/18/2021) [facility] History of Past illness Narrative* Problem Noted Date Resolved Date Obesity 09/03/2020 11/29/2020 Abdominal pain 02/01/2020 04/08/2020 Moderate episode of recurrent major depressive d isorder 11/21/2019 01/03/2020 Obesity, Class II, BMI 35-39.9 10/13/2019 1 Last Assessment & Plan: Assessment: BMI 38.74 documented as of this encounter (statuses as of 06/23/2021) [facility] of Past illness Narrative* Problem Noted Date Resolved Date Obesity 09/03/2020 11/29/2020 Abdominal pain 02/01/2020 04/08/2020 Moderate episode of recurrent major depressive d isorder 11/21/2019 01/03/2020 Obesity, Class II, BMI 35-39.9 10/13/2019 1 Last Assessment & Plan: Assessment: BMI 38.74 documented as of this encounter (statuses as of 07/09/2021) [facility] of Past illness Narrative* Problem Noted Date Resolved Date Obesity 09/03/2020 11/29/2020 Abdominal pain 02/01/2020 04/08/2020 Moderate episode of recurrent major depressive d isorder 11/21/2019 01/03/2020 Obesity, Class II, BMI 35-39.9 10/13/2019 1 Last Assessment & Plan: Assessment: BMI 38.74 documented as of this encounter (statuses as of 07/15/2021) [facility] of Past illness Narrative* Problem Noted Date Resolved Date Obesity 09/03/2020 11/29/2020 Abdominal pain 02/01/2020 04/08/2020 Moderate episode of recurrent major depressive d isorder 11/21/2019 01/03/2020 Obesity, Class II, BMI 35-39.9 10/13/2019 1 Last Assessment & Plan: Assessment: BMI 38.74 documented as of this encounter (statuses as of 07/28/2021) [facility] of Past illness Narrative* Problem Noted Date Resolved Date Obesity 09/03/2020 11/29/2020 Abdominal pain 02/01/2020 04/08/2020 Moderate episode of recurrent major depressive d isorder 11/21/2019 01/03/2020 Obesity, Class II, BMI 35-39.9 10/13/2019 1 Last Assessment & Plan: Assessment: BMI 38.74 documented as of this encounter (statuses as of 08/01/2021) [facility] of Past illness Narrative* Problem Noted Date Resolved Date Obesity 09/03/2020 11/29/2020 Abdominal pain 02/01/2020 04/08/2020 Moderate episode of recurrent major depressive d isorder 11/21/2019 01/03/2020 Obesity, Class II, BMI 35-39.9 10/13/2019 1 Last Assessment & Plan: Assessment: BMI 38.74 documented as of this encounter (statuses as of 08/14/2021) [facility] of Past illness Narrative* Problem Noted Date Resolved Date Obesity 09/03/2020 11/29/2020 Abdominal pain 02/01/2020 04/08/2020 Moderate episode of recurrent major depressive d isorder 11/21/2019 01/03/2020 Obesity, Class II, BMI 35-39.9 10/13/2019 1 Last Assessment & Plan: Assessment: BMI 38.74 documented as of this encounter (statuses as of 08/22/2021) [facility] of Past illness Narrative* Problem Noted Date Resolved Date Obesity 09/03/2020 11/29/2020 Abdominal pain 02/01/2020 04/08/2020 Moderate episode of recurrent major depressive d isorder 11/21/2019 01/03/2020 Obesity, Class II, BMI 35-39.9 10/13/2019 1 Last Assessment & Plan: Assessment: BMI 38.74 documented as of this encounter (statuses as of 08/28/2021) [facility] of Past illness Narrative* Problem Noted Date Resolved Date Obesity 09/03/2020 11/29/2020 Abdominal pain 02/01/2020 04/08/2020 Moderate episode of recurrent major depressive d isorder 11/21/2019 01/03/2020 Obesity, Class II, BMI 35-39.9 10/13/2019 1 Last Assessment & Plan: Assessment: BMI 38.74 documented as of this encounter (statuses as of 08/29/2021) [facility] of [facility] illness Narrative* Problem Noted Date Resolved Date Obesity 09/03/2020 11/29/2020 Abdominal pain 02/01/2020 04/08/2020 Moderate episode of recurrent major depressive d isorder 11/21/2019 01/03/2020 Obesity, Class II, BMI 35-39.9 10/13/2019 1 Last Assessment & Plan: Assessment: BMI 38.74 documented as of this encounter (statuses as of 08/29/2021) [facility] of [facility] illness Narrative* Problem Noted Date Resolved Date Obesity 09/03/2020 11/29/2020 Abdominal pain 02/01/2020 04/08/2020 Moderate episode of recurrent major depressive d isorder 11/21/2019 01/03/2020 Obesity, Class II, BMI 35-39.9 10/13/2019 1 Last Assessment & Plan: Assessment: BMI 38.74 documented as of this encounter (statuses as of 09/02/2021) [facility] of [facility] illness Narrative* Problem Noted Date Resolved Date Obesity 09/03/2020 11/29/2020 Abdominal pain 02/01/2020 04/08/2020 Moderate episode of recurrent major depressive d isorder 11/21/2019 01/03/2020 Obesity, Class II, BMI 35-39.9 10/13/2019 1 Last Assessment & Plan: Assessment: BMI 38.74 documented as of this encounter (statuses as of 10/09/2021) [facility] of [facility] illness Narrative* Problem Noted Date Resolved Date Obesity 09/03/2020 11/29/2020 Abdominal pain 02/01/2020 04/08/2020 Moderate episode of recurrent major depressive d isorder 11/21/2019 01/03/2020 Obesity, Class II, BMI 35-39.9 10/13/2019 1 Last Assessment & Plan: Assessment: BMI 38.74 documented as of this encounter (statuses as of 10/09/2021) [facility] of Past illness Narrative* Problem Noted Date Resolved Date Obesity 09/03/2020 11/29/2020 Abdominal pain 02/01/2020 04/08/2020 Moderate episode of recurrent major depressive d isorder 11/21/2019 01/03/2020 Obesity, Class II, BMI 35-39.9 10/13/2019 1 Last Assessment & Plan: Assessment: BMI 38.74 documented as of this encounter (statuses as of 10/21/2021) [facility] of Past illness Narrative* Problem Noted Date Resolved Date Obesity 09/03/2020 11/29/2020 Abdominal pain 02/01/2020 04/08/2020 Moderate episode of recurrent major depressive d isorder 11/21/2019 01/03/2020 Obesity, Class II, BMI 35-39.9 10/13/2019 1 Last Assessment & Plan: Assessment: BMI 38.74 documented as of this encounter (statuses as of 11/18/2021) [facility] of [facility] illness Narrative* Problem Noted Date Resolved Date Obesity 09/03/2020 11/29/2020 Abdominal pain 02/01/2020 04/08/2020 Moderate episode of recurrent major depressive d isorder 11/21/2019 01/03/2020 Obesity, Class II, BMI 35-39.9 10/13/2019 1 Last Assessment & Plan: Assessment: BMI 38.74 documented as of this encounter (statuses as of 11/18/2021) [address]20-2021 History of Past illness Narrative* Problem Noted Date Resolved Date Obesity 09/03/2020 11/29/2020 Abdominal pain 02/01/2020 04/08/2020 Moderate episode of recurrent major depressive d isorder 11/21/2019 01/03/2020 Obesity, Class II, BMI 35-39.9 10/13/2019 1 Last Assessment & Plan: Assessment: BMI 38.74 documented as of this encounter (statuses as of 11/19/2021) [facility] Narrative* Problem Noted Date Resolved Date Obesity 09/03/2020 11/29/2020 Abdominal pain 02/01/2020 04/08/2020 Moderate episode of recurrent major depressive d isorder 11/21/2019 01/03/2020 Obesity, Class II, BMI 35-39.9 10/13/2019 1 Last Assessment & Plan: Assessment: BMI 38.74 documented as of this encounter (statuses as of 11/19/2021) [facility] of [facility] illness Narrative* Problem Noted Date Resolved Date Obesity 09/03/2020 11/29/2020 Abdominal pain 02/01/2020 04/08/2020 Moderate episode of recurrent major depressive d isorder 11/21/2019 01/03/2020 Obesity, Class II, BMI 35-39.9 10/13/2019 1 Last Assessment & Plan: Assessment: BMI 38.74 documented as of this encounter (statuses as of 12/17/2021) [address]20-2021 History of Past illness Narrative* Problem Noted Date Resolved Date Obesity 09/03/2020 11/29/2020 Abdominal pain 02/01/2020 04/08/2020 Moderate episode of recurrent major depressive d isorder 11/21/2019 01/03/2020 Obesity, Class II, BMI 35-39.9 10/13/2019 1 Last Assessment & Plan: Assessment: BMI 38.74 documented as of this encounter (statuses as of 12/25/2021) [address]20-2021 History of Past illness Narrative* Problem Noted Date Resolved Date Obesity 09/03/2020 11/29/2020 Abdominal pain 02/01/2020 04/08/2020 Moderate episode of recurrent major depressive d isorder 11/21/2019 01/03/2020 Obesity, Class II, BMI 35-39.9 10/13/2019 1 Last Assessment & Plan: Assessment: BMI 38.74 documented as of this encounter (statuses as of 12/25/2021) [address]20-2021 History of Past illness Narrative* Problem Noted Date Resolved Date Obesity 09/03/2020 11/29/2020 Abdominal pain 02/01/2020 04/08/2020 Moderate episode of recurrent major depressive d isorder 11/21/2019 01/03/2020 Obesity, Class II, BMI 35-39.9 10/13/2019 1 Last Assessment & Plan: Assessment: BMI 38.74 documented as of this encounter (statuses as of 12/25/2021) [address]20-2021 History of Past illness Narrative* Problem Noted Date Resolved Date Obesity 09/03/2020 11/29/2020 Abdominal pain 02/01/2020 04/08/2020 Moderate episode of recurrent major depressive d isorder 11/21/2019 01/03/2020 Obesity, Class II, BMI 35-39.9 10/13/2019 1 Last Assessment & Plan: Assessment: BMI 38.74 documented as of this encounter (statuses as of 12/26/2021) [address]20-2021 History of Past illness Narrative* Problem Noted Date Resolved Date Obesity 09/03/2020 11/29/2020 Abdominal pain 02/01/2020 04/08/2020 Moderate episode of recurrent major depressive d isorder 11/21/2019 01/03/2020 Obesity, Class II, BMI 35-39.9 10/13/2019 1 Last Assessment & Plan: Assessment: BMI 38.74 documented as of this encounter (statuses as of 01/01/2022) [address]20-2021 History of Past illness Narrative* Problem Noted Date Resolved Date Obesity 09/03/2020 11/29/2020 Abdominal pain 02/01/2020 04/08/2020 Moderate episode of recurrent major depressive d isorder 11/21/2019 01/03/2020 Obesity, Class II, BMI 35-39.9 10/13/2019 1 Last Assessment & Plan: Assessment: BMI 38.74 documented as of this encounter (statuses as of 01/02/2022) [facility]07-20-2021 History of Past illness Narrative* Problem Noted Date Resolved Date Obesity 09/03/2020 11/29/2020 Abdominal pain 02/01/2020 04/08/2020 Moderate episode of recurrent major depressive d isorder 11/21/2019 01/03/2020 Obesity, Class II, BMI 35-39.9 10/13/2019 1 Last Assessment & Plan: Assessment: BMI 38.74 documented as of this encounter (statuses as of 01/06/2022) [address]20-2021 History of Past illness Narrative* Problem Noted Date Resolved Date Obesity 09/03/2020 11/29/2020 Abdominal pain 02/01/2020 04/08/2020 Moderate episode of recurrent major depressive d isorder 11/21/2019 01/03/2020 Obesity, Class II, BMI 35-39.9 10/13/2019 1 Last Assessment & Plan: Assessment: BMI 38.74 documented as of this encounter (statuses as of 01/20/2022) [facility]07-20-2021 History of Past illness Narrative* Problem Noted Date Resolved Date Obesity 09/03/2020 11/29/2020 Abdominal pain 02/01/2020 04/08/2020 Moderate episode of recurrent major depressive d isorder 11/21/2019 01/03/2020 Obesity, Class II, BMI 35-39.9 10/13/2019 1 Last Assessment & Plan: Assessment: BMI 38.74 documented as of this encounter (statuses as of 01/28/2022) [facility]07-20-2021 History of Past illness Narrative* Problem Noted Date Resolved Date Obesity 09/03/2020 11/29/2020 Abdominal pain 02/01/2020 04/08/2020 Moderate episode of recurrent major depressive d isorder 11/21/2019 01/03/2020 Obesity, Class II, BMI 35-39.9 10/13/2019 1 Last Assessment & Plan: Assessment: BMI 38.74 documented as of this encounter (statuses as of 02/02/2022) [facility]07-20-2021 History of Past illness Narrative* Problem Noted Date Resolved Date Obesity 09/03/2020 11/29/2020 Abdominal pain 02/01/2020 04/08/2020 Moderate episode of recurrent major depressive d isorder 11/21/2019 01/03/2020 Obesity, Class II, BMI 35-39.9 10/13/2019 1 Last Assessment & Plan: Assessment: BMI 38.74 documented as of this encounter (statuses as of 02/02/2022) [facility]07-20-2021 History of Past illness Narrative* Problem Noted Date Resolved Date Obesity 09/03/2020 11/29/2020 Abdominal pain 02/01/2020 04/08/2020 Moderate episode of recurrent major depressive d isorder 11/21/2019 01/03/2020 Obesity, Class II, BMI 35-39.9 10/13/2019 1 Last Assessment & Plan: Assessment: BMI 38.74 documented as of this encounter (statuses as of 02/03/2022) [facility]07-20-2021 History of Past illness Narrative* Problem Noted Date Resolved Date Obesity 09/03/2020 11/29/2020 Abdominal pain 02/01/2020 04/08/2020 Moderate episode of recurrent major depressive d isorder 11/21/2019 01/03/2020 Obesity, Class II, BMI 35-39.9 10/13/2019 1 Last Assessment & Plan: Assessment: BMI 38.74 documented as of this encounter (statuses as of 02/03/2022) [facility]07-20-2021 History of Past illness Narrative* Problem Noted Date Resolved Date Obesity 09/03/2020 11/29/2020 Abdominal pain 02/01/2020 04/08/2020 Moderate episode of recurrent major depressive d isorder 11/21/2019 01/03/2020 Obesity, Class II, BMI 35-39.9 10/13/2019 1 Last Assessment & Plan: Assessment: BMI 38.74 documented as of this encounter (statuses as of 02/04/2022) [facility]07-20-2021 History of Past illness Narrative* Problem Noted Date Resolved Date Obesity 09/03/2020 11/29/2020 Abdominal pain 02/01/2020 04/08/2020 Moderate episode of recurrent major depressive d isorder 11/21/2019 01/03/2020 Obesity, Class II, BMI 35-39.9 10/13/2019 1 Last Assessment & Plan: Assessment: BMI 38.74 documented as of this encounter (statuses as of 02/06/2022) [facility]07-20-2021 History of Past illness Narrative* Problem Noted Date Resolved Date Obesity 09/03/2020 11/29/2020 Abdominal pain 02/01/2020 04/08/2020 Moderate episode of recurrent major depressive d isorder 11/21/2019 01/03/2020 Obesity, Class II, BMI 35-39.9 10/13/2019 1 Last Assessment & Plan: Assessment: BMI 38.74 documented as of this encounter (statuses as of 02/15/2022) [facility]07-20-2021 History of Past illness Narrative* Problem Noted Date Resolved Date Obesity 09/03/2020 11/29/2020 Abdominal pain 02/01/2020 04/08/2020 Moderate episode of recurrent major depressive d isorder 11/21/2019 01/03/2020 Obesity, Class II, BMI 35-39.9 10/13/2019 1 Last Assessment & Plan: Assessment: BMI 38.74 documented as of this encounter (statuses as of 02/18/2022) [facility]07-20-2021 History of Past illness Narrative* Problem Noted Date Resolved Date Obesity 09/03/2020 11/29/2020 Abdominal pain 02/01/2020 04/08/2020 Moderate episode of recurrent major depressive d isorder 11/21/2019 01/03/2020 Obesity, Class II, BMI 35-39.9 10/13/2019 1 Last Assessment & Plan: Assessment: BMI 38.74 documented as of this encounter (statuses as of 03/05/2022) [facility]07-20-2021 History of Past illness Narrative* Problem Noted Date Resolved Date Obesity 09/03/2020 11/29/2020 Abdominal pain 02/01/2020 04/08/2020 Moderate episode of recurrent major depressive d isorder 11/21/2019 01/03/2020 Obesity, Class II, BMI 35-39.9 10/13/2019 1 Last Assessment & Plan: Assessment: BMI 38.74 documented as of this encounter (statuses as of 03/05/2022) [facility]07-20-2021 History of Past illness Narrative* Problem Noted Date Resolved Date Obesity 09/03/2020 11/29/2020 Abdominal pain 02/01/2020 04/08/2020 Moderate episode of recurrent major depressive d isorder 11/21/2019 01/03/2020 Obesity, Class II, BMI 35-39.9 10/13/2019 1 Last Assessment & Plan: Assessment: BMI 38.74 documented as of this encounter (statuses as of 03/07/2022) [facility]07-20-2021 History of Past illness Narrative* Problem Noted Date Resolved Date Obesity 09/03/2020 11/29/2020 Abdominal pain 02/01/2020 04/08/2020 Moderate episode of recurrent major depressive d isorder 11/21/2019 01/03/2020 Obesity, Class II, BMI 35-39.9 10/13/2019 1 Last Assessment & Plan: Assessment: BMI 38.74 documented as of this encounter (statuses as of 03/30/2022) [facility]07-20-2021 History of Past illness Narrative* Problem Noted Date Resolved Date Obesity 09/03/2020 11/29/2020 Abdominal pain 02/01/2020 04/08/2020 Moderate episode of recurrent major depressive d isorder 11/21/2019 01/03/2020 Obesity, Class II, BMI 35-39.9 10/13/2019 1 Last Assessment & Plan: Assessment: BMI 38.74 documented as of this encounter (statuses as of 06/14/2022) [facility]07-20-2021 History of Past illness Narrative* Problem Noted Date Resolved Date Obesity 09/03/2020 11/29/2020 Abdominal pain 02/01/2020 04/08/2020 Moderate episode of recurrent major depressive d isorder 11/21/2019 01/03/2020 Obesity, Class II, BMI 35-39.9 10/13/2019 1 Last Assessment & Plan: Assessment: BMI 38.74 documented as of this encounter (statuses as of 06/18/2022) [facility]05-18-2021 Emergency department Note* Nabila Childs [...] 07/02/2020 2:36 PM EDT Emergency Department Report [facility] EMERGENCY DEPARTMENT Service Date:.07/02/20 PCP: Shanna June [...] Social Gatherings with Friends and Family: Attends Jew Services: Active Member of Clubs or Organizations: [...] POSITIVE ANTIBODY SCREEN NEGATIVE ARM BAND NUMBER [id number] URINALYSIS, MACRO Result Value Ref Range COLOR, [...] H&H is stable. She was started on [place] and Zofran. 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 Chart was 5 to the BOW MACHINE OPERATOR's office. 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 She is discharged [...] with large clots documented in this [facility]07-24-2020 Evaluation + Plan note Future Appointments Appointment Date:07/23/2022 01:00:00 PM Scheduled Provider: Location:.[facility] Appointment Type:CV Echo (FT) Appointment Date:09/07/2022 11:00:00 AM Scheduled Provider:[facility] New Patient Future Scheduled Tests Radiology* US Renal 06/10/22 * Echo Transthoracic Complete 07/23/22 [facility]05-24-2020 Evaluation + Plan note Future Appointments Appointment Date:07/07/2022 11:00:00 AM Scheduled Provider: Location:.[facility] Appointment Type:CV Echo (FT) Appointment Date:07/08/2022 01:00:00 PM Scheduled Provider:Chetna Jack MD [facility] Type:Cardiology New Patient (FT) Future Scheduled Tests Radiology* US Renal 06/10/22 * Echo Transthoracic [facility]07/22 [facility] Future Appointments Appointment Date:06/11/2022 03:00:00 PM Scheduled Provider:Chetna Jack MD [facility] Type:Cardiology New Patient (FT) Future Scheduled Tests Radiology* US Renal 06[facility]10/22 [facility] Future Appointments Appointment Date:09/07/2022 11:00:00 AM Scheduled Provider:Jamil PRICE MD Location:[facility] Appointment Type:URO New Patient Future Scheduled Tests Radiology* US Renal 06[facility]10/22 [facility] Future Appointments Appointment Date:01/20/2023 10:00:00 AM Scheduled Provider:Rajni Rouse MD Location:[facility] Appointment Type:URO Office Visit Future Scheduled Tests Radiology* US Renal 06/10/22 [facility] evaluation + Plan note Future Appointments Appointment Date:10/21/2022 02:20:00 PM Scheduled Provider:Jaquan Paula Location:[facility] Appointment Type:FM ER/Hospital Follow Up Appointment Date:11/20/2022 02:40:00 PM Scheduled Provider: Location:[facility] Appointment Type:FM Lab Draw Appointment Date:01/20/2023 10:00:00 AM Scheduled Provider:Rajni Rouse MD Location:[facility] Appointment Type:URO Office Visit Future Scheduled Tests Laboratory* T3 Free 10/07/22 * Thyroid Stimulating Hormone 10/07/22 * Free T4 10/07/22 Radiology* US Renal 06[facility]10/22 [facility] Future Appointments Appointment Date:11/19/2022 02:30:00 PM Scheduled Provider:Odilon Strange MD [facility] [place] Appointment Type:Cardiology New Patient () Appointment Date:01/20/2023 10:00:00 AM Scheduled Provider:Rajni Rouse MD Location:[facility] Appointment Type:URO Office Visit Future Scheduled Tests Radiology* US Renal 06/10/22 [facility] Future Appointments Appointment Date:07/13/2023 08:20:00 AM Scheduled Provider:OLGA PRAKASH PA-C Location:[facility] Appointment Type:URO Office Visit Appointment Date:08/04/2023 09:45:00 AM Scheduled Provider:Rajni Rouse MD Location:[facility] Appointment Type:URO Office Visit Future Scheduled Tests Radiology* US Renal 06/10/22 [facility] note* Diagnosis Complex ovarian cyst- Primary Other and unspecified ovarian cyst Uterine leiomyoma, unspecified location [facility] Diagnosis Contusion of right thumb without damage to nail, initial encounter- Primary documented in this encounter [employer] Phone: evaluation note* Diagnosis 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 documented in this encounter [facility] note* Diagnosis Acetabular labrum tear, right, initial encounter- Primary [facility] Diagnosis Tear of right acetabular labrum, subsequent encounter- Primary documented in this encounter [facility] note* Diagnosis Tear of right acetabular labrum, subsequent encounter- Primary Tear of right acetabular labrum, subsequent encounter [facility] Diagnosis Generalized abdominal pain- Primary Abdominal pain, generalized documented in this encounter [employer] Phone: evaluation note* Diagnosis Tear of right acetabular labrum, subsequent encounter- Primary documented in this encounter [facility] noteNort [employer] Other Evaluation noteNo InformationNoW&[employer] Other Evaluation note* Diagnosis S/P laparoscopic sleeve gastrectomy- Primary Bariatric surgery status Obesity, Class I, BMI 30-34.9 Obesity, unspecified Dietary counseling and surveillance Dietary surveillance and counseling documented in this encounter [facility] note* Diagnosis Tear of right acetabular labrum, subsequent encounter- Primary documented in this encounter [facility] note* Diagnosis Dental infection- Primary Acute apical periodontitis of pulpal origin documented in this encounter [employer] Phone: evaluation note* Diagnosis Gastroesophageal reflux disease, unspecified whether esophagitis present- Primary Bariatric surgery status Weight disorder Other symptoms concerning nutrition, metabolism, and development Class 1 obesity with serious comorbidity and body mass index (BMI) of 31.0 to 31.9 in adult, unspecified obesity type S/P laparoscopic sleeve gastrectomy Bariatric surgery status Dietary counseling and surveillance Dietary surveillance and counseling documented in this encounter [facility] note* Diagnosis Gastroesophageal reflux disease without esophagitis- Primary Esophageal reflux documented in this encounter [facility] note* Diagnosis Gastroesophageal reflux disease without esophagitis- Primary Esophageal reflux S/P laparoscopic sleeve gastrectomy Bariatric surgery status documented in this encounter [facility] note* Diagnosis Regurgitation of food- Primary Gastroesophageal reflux disease, unspecified whether esophagitis present documented in this encounter [facility] note* Diagnosis Regurgitation of food Gastroesophageal reflux disease, unspecified whether esophagitis present documented in this encounter [facility] note* Diagnosis Gastroesophageal reflux disease without esophagitis Esophageal reflux documented in this encounter [facility] note* Diagnosis Gastroesophageal reflux disease, unspecified whether esophagitis present- Primary documented in this encounter [facility] note* Diagnosis Gastroesophageal reflux disease with esophagitis without hemorrhage- Primary RICHAR (obstructive sleep apnea) Obstructive sleep apnea (adult) (pediatric) Class 1 obesity with serious comorbidity and body mass index (BMI) of 33.0 to 33.9 in adult, unspecified obesity type S/P laparoscopic sleeve gastrectomy Bariatric surgery status Weight disorder Other symptoms concerning nutrition, metabolism, and development documented [facility] this encounter [facility] Diagnosis Pre-op evaluation- Primary Preoperative examination, [...] esophagitis without hemorrhage documented [facility] this [facility]* Diagnosis S/P bariatric surgery- Primary Bariatric surgery status Postoperative pain Other acute postoperative pain Primary osteoarthritis involving multiple joints documented [facility] this encounter [facility]* Diagnosis S/P gastric surgery- Primary Other postprocedural status Dietary counseling Dietary surveillance and counseling documented [facility] this [facility] Diagnosis Postoperative pain Other acute postoperative pain documented [facility] this [facility]* Diagnosis Acetabular labrum tear, right, subsequent encounter- Primary documented in this encounter [facility]* Diagnosis Esophageal dysphagia- Primary Dysphagia, pharyngoesophageal phase S/P gastric bypass Bariatric surgery status Postoperative malabsorption Other and unspecified postsurgical nonabsorption [facility] Diagnosis Esophageal dysphagia Dysphagia, pharyngoesophageal phase S/P gastric bypass Bariatric surgery status S/P bariatric surgery Bariatric surgery status [facility]* Diagnosis Polyarthralgia- Primary Pain in joint, multiple sites Malaise and fatigue Other malaise and fatigue Subjective fever S/P laparoscopic sleeve gastrectomy Bariatric surgery status History of syncope Other specified personal history presenting hazards to health History of adrenal insufficiency Personal history of other endocrine, metabolic, and immunity disorders Hypothyroidism, unspecified type documented in this encounter [facility]* Diagnosis Encounter to discuss test results- Primary Other specified counseling NO SHOW documented in this encounter [facility]* Diagnosis Constipation, unspecified constipation type- Primary Nausea Nausea alone Rash of face Rash and other nonspecific skin eruption Enlarged lymph nodes Enlargement of lymph nodes documented in this encounter [facility]* Diagnosis Vernal conjunctivitis of both eyes- Primary documented in this encounter [facility] note* Diagnosis Rash and nonspecific skin eruption- Primary Rash and other nonspecific skin eruption Pain in eye, unspecified laterality Facial edema Edema documented in this encounter [facility] note* Diagnosis Encounter for surgical aftercare following surgery of digestive system- Primary Aftercare following surgery of the teeth, oral cavity and digestive system, NEC Impaired intestinal absorption Unspecified intestinal malabsorption Esophageal dysphagia Dysphagia, pharyngoesophageal phase Gastroesophageal reflux disease, unspecified whether esophagitis present S/P bariatric surgery Bariatric surgery status documented in this encounter [facility] note* Diagnosis ARSALAN (generalized anxiety disorder)- Primary Generalized anxiety disorder Panic disorder without agoraphobia Moderate recurrent major depression (HCC) Major depressive disorder, recurrent episode, moderate documented in this encounter [facility] note* Diagnosis Postoperative malabsorption- Primary Other and unspecified postsurgical nonabsorption S/P gastric bypass Bariatric surgery status Overweight (BMI 25.0-29.9) Overweight Dietary counseling and surveillance Dietary surveillance and counseling documented in this encounter [facility] note* Diagnosis ARSALAN (generalized anxiety disorder)- Primary Generalized anxiety disorder Panic disorder without agoraphobia Moderate recurrent major depression (HCC) Major depressive disorder, recurrent episode, moderate documented in this encounter [facility] note* Diagnosis Epigastric pain- Primary Abdominal pain, epigastric documented in this encounter [facility] note* Diagnosis Back strain, initial encounter- Primary documented in this encounter [facility]* Diagnosis Generalized abdominal pain- Primary Abdominal pain, generalized documented in this encounter [facility] note* Diagnosis Nausea- Primary Nausea alone documented in this encounter [facility] note* Diagnosis Gastroesophageal reflux disease, unspecified whether esophagitis present documented in this encounter [facility] note* Diagnosis Generalized anxiety disorder documented in this encounter [facility] note* Diagnosis Nausea- Primary Nausea alone RUQ pain Abdominal pain, right upper quadrant History of cholecystectomy Other acquired absence of organ documented in this encounter [facility] note* Diagnosis Dehydration- Primary RUQ pain Abdominal pain, right upper quadrant documented in this encounter [facility] note* Diagnosis Right knee pain, unspecified chronicity- Primary documented in this encounter [facility] note* Diagnosis Post-operative pain- Primary Other acute postoperative pain 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 documented [facility] this encounter [facility]* Diagnosis Dehydration- Primary Nausea Nausea alone RUQ pain Abdominal pain, right upper quadrant documented in this encounter [facility] note* Diagnosis RUQ pain- Primary Abdominal pain, right upper quadrant Chronic nausea Nausea alone documented in this encounter [facility] note* Diagnosis Chronic nausea Nausea alone RUQ pain Abdominal pain, right upper quadrant documented in this encounter [facility] note* Diagnosis Abdominal pain, unspecified abdominal location- Primary documented in this encounter [facility] note* Diagnosis Generalized abdominal pain- Primary Abdominal pain, generalized [facility]* Diagnosis Nausea Nausea alone RUQ pain Abdominal pain, right upper quadrant History of cholecystectomy Other acquired absence of organ documented in this encounter [facility] note* Diagnosis Median arcuate ligament syndrome (HCC)- Primary Celiac artery compression syndrome Neuralgia and neuritis Neuralgia, neuritis, and radiculitis, unspecified documented in this encounter [facility] note* Diagnosis Chronic pain syndrome- Primary 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 documented in this encounter [facility] note* Diagnosis Median arcuate ligament syndrome (HCC)- Primary Celiac artery compression syndrome 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 documented in this encounter [facility] noteNo assessment information availablePromedica [facility] Work [...] classified documented in this encounter [facility] Work Phone: Evaluation note* Diagnosis Abdominal pain- Primary Abdominal pain, unspecified site Abdominal pain Abdominal pain, unspecified site Nausea and vomiting, unspecified vomiting type History of gastric bypass Median arcuate ligament syndrome (CMS/HCC) Celiac artery compression syndrome documented in this encounter [facility] Work Phone: Evaluation note* Diagnosis Median arcuate ligament syndrome (CMS/HCC)- Primary Celiac artery compression syndrome documented in this encounter [facility] Work Phone: Evaluation note* Diagnosis Bariatric surgery status- Primary Dietary zinc deficiency Mineral deficiency, not elsewhere classified Vitamin D deficiency Unspecified vitamin D deficiency [facility] Diagnosis Gastroesophageal reflux disease, unspecified whether esophagitis present- Primary Constipation, unspecified constipation type [facility] Diagnosis Nausea and vomiting, unspecified vomiting type- Primary documented in this encounter [facility] note* Diagnosis Neuralgia and neuritis- Primary Neuralgia, neuritis, and radiculitis, unspecified Gastroesophageal reflux disease without esophagitis Esophageal reflux 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 S/P gastric bypass Bariatric surgery status [facility] this [facility] Diagnosis ARSALAN (generalized anxiety disorder)- Primary Generalized anxiety disorder Panic disorder without agoraphobia Moderate recurrent major depression (HCC) Major depressive disorder, recurrent episode, moderate [facility] Diagnosis Sudden onset of severe abdominal pain- Primary Abdominal pain, unspecified site Nausea and vomiting, unspecified vomiting type PEG (percutaneous endoscopic gastrostomy) status (HCC) Gastrostomy status documented [facility] this [facility] Diagnosis Median arcuate ligament syndrome (CMS-HCC)- Primary Celiac artery compression syndrome documented in this encounter [facility] Work Phone: Evaluation note* Diagnosis [...] vomiting documented in this encounter [facility] Work Phone: Evaluation note* Diagnosis Urinary frequency- Primary Urgency of urination documented [facility] this [facility] Diagnosis Screening for genitourinary condition Screening for other and unspecified genitourinary condition documented in this [facility] Diagnosis ARSALAN (generalized anxiety disorder)- Primary Generalized anxiety disorder Panic disorder without agoraphobia Moderate recurrent major depression (HCC) Major depressive disorder, recurrent episode, moderate [facility] Diagnosis Onset Date Resolution Status Intractable vomiting with nausea acute Small bowel obstruction acut e [facility] Work Phone: Evaluation note* Diagnosis Onset Date Resolution Status Intractable vomiting with nausea acute Small bowel obstruction acut e Status post gastric bypass for obesity acute [facility] Work Phone: Evaluation note* Diagnosis Chronic nausea- Primary Nausea alone History of laparoscopic partial gastrectomy Personal history of surgery to other organs History of sphincterotomy of sphincter of Oddi Other postprocedural status 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 documented [facility] this [facility] Diagnosis Chronic abdominal pain- Primary Abdominal pain, unspecified site Gastroesophageal reflux disease without esophagitis Esophageal reflux Neuralgia and neuritis Neuralgia, neuritis, and radiculitis, unspecified 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 S/P gastric bypass Bariatric surgery status documented [facility] this [facility] Diagnosis Gastroesophageal reflux disease without esophagitis Esophageal reflux Neuralgia and neuritis Neuralgia, neuritis, and radiculitis, unspecified 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 Chronic abdominal pain Abdominal pain, unspecified site S/P gastric bypass Bariatric surgery [facility] Diagnosis Gastroesophageal reflux disease without esophagitis Esophageal reflux Neuralgia and neuritis Neuralgia, neuritis, and radiculitis, unspecified 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 Chronic abdominal pain Abdominal pain, unspecified site S/P gastric bypass Bariatric surgery status [facility] Diagnosis Neuralgia and neuritis- Primary Neuralgia, neuritis, and radiculitis, unspecified 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 [facility] Diagnosis Gastroesophageal reflux disease without esophagitis Esophageal reflux Neuralgia and neuritis Neuralgia, neuritis, and radiculitis, unspecified 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 Chronic abdominal pain Abdominal pain, unspecified site S/P gastric bypass Bariatric surgery status [facility]* Diagnosis Gastroesophageal reflux disease without esophagitis Esophageal reflux Neuralgia and neuritis Neuralgia, neuritis, and radiculitis, unspecified 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 Chronic abdominal pain Abdominal pain, unspecified site S/P gastric bypass Bariatric surgery status documented in this encounter [facility] note* Diagnosis Gastroesophageal reflux disease, unspecified whether esophagitis present documented in this encounter [facility] note* Diagnosis Gastroesophageal reflux disease, unspecified whether esophagitis present documented in this encounter [facility] note* Diagnosis Gastroesophageal reflux disease, unspecified whether esophagitis present- Primary documented in this encounter [facility] note* Diagnosis Chronic abdominal pain- Primary Abdominal pain, unspecified site History of gastric bypass Bariatric surgery status Pre-op testing Preoperative examination, unspecified Chronic abdominal pain Abdominal pain, unspecified site History of gastric bypass Bariatric surgery status Pre-op testing Preoperative examination, unspecified documented in this encounter [facility] note* Diagnosis Multiple gastric ulcers- Primary LUQ pain Abdominal pain, left upper quadrant Gastroesophageal reflux disease with esophagitis without hemorrhage Constipation, unspecified constipation type Chronic abdominal pain Abdominal pain, unspecified site History of gastric bypass Bariatric surgery status Pre-op testing Preoperative examination, unspecified documented in this encounter [facility] note* Diagnosis History of gastric bypass- Primary Bariatric surgery status Left upper quadrant abdominal pain Chronic abdominal pain Abdominal pain, unspecified site History of gastric bypass Bariatric surgery status Pre-op testing Preoperative examination, unspecified documented in this encounter [facility] note* Diagnosis Gastroesophageal reflux disease without esophagitis Esophageal reflux Neuralgia and neuritis Neuralgia, neuritis, and radiculitis, unspecified 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 Chronic abdominal pain Abdominal pain, unspecified site S/P gastric bypass Bariatric surgery status Chronic abdominal pain Abdominal pain, unspecified site History of gastric bypass Bariatric surgery status Pre-op testing Preoperative examination, unspecified documented in this encounter [facility] note* Diagnosis ARSALAN (generalized anxiety disorder)- Primary Generalized anxiety disorder Panic disorder without agoraphobia Moderate recurrent major depression (HCC) Major depressive disorder, recurrent episode, moderate Situational stress Other psychological or physical stress, not elsewhere classified Chronic abdominal pain Abdominal pain, unspecified site History of gastric bypass Bariatric surgery status Pre-op testing Preoperative examination, unspecified documented in this encounter [facility] note* Diagnosis Pre-op evaluation- Primary Preoperative examination, unspecified Class 3 severe obesity due to excess calories with serious comorbidity and body mass index (BMI) of 40.0 to 44.9 in adult (HCC) Essential hypertension Unspecified essential hypertension Gastroesophageal reflux disease without esophagitis Esophageal reflux Subclinical iodine-deficiency hypothyroidism Other specified acquired hypothyroidism RICHAR on CPAP Obstructive sleep apnea (adult) (pediatric) PCOS (polycystic ovarian syndrome) Polycystic ovaries Anemia, unspecified type Obesity, Class II, BMI 35-39.9 Obesity, unspecified Mild intermittent asthma without complication Unspecified asthma Preoperative examination- Primary Preoperative examination, unspecified Ventral hernia without obstruction or gangrene Ventral hernia, unspecified, without mention of obstruction or gangrene Essential hypertension Unspecified essential hypertension Subclinical iodine-deficiency hypothyroidism Other specified acquired hypothyroidism RICHAR on CPAP Obstructive sleep apnea (adult) (pediatric) Mild intermittent asthma without complication Unspecified asthma Gastroesophageal reflux disease without esophagitis Esophageal reflux PCOS (polycystic ovarian syndrome) Polycystic ovaries Gastric ulcer without hemorrhage or perforation, unspecified chronicity Anemia, unspecified type Morbid obesity (HCC) Morbid obesity Pre-op evaluation- Primary Preoperative examination, unspecified Tear of right acetabular labrum, subsequent encounter RCIHAR on CPAP Obstructive sleep apnea (adult) (pediatric) Mild intermittent asthma without complication Unspecified asthma S/P laparoscopic sleeve gastrectomy Bariatric surgery status Subclinical iodine-deficiency hypothyroidism Other specified acquired hypothyroidism Anemia, unspecified type RUQ abdominal pain Abdominal pain, right upper quadrant Nausea and vomiting, unspecified vomiting type History of cholecystectomy Other acquired absence of organ History of gastric bypass Bariatric surgery status Asthma Unspecified asthma Peptic ulcer disease Peptic ulcer, unspecified site, unspecified as acute or chronic, without mention of hemorrhage, perforation, or obstruction Bilious vomiting with nausea Pre-op evaluation- Primary Preoperative examination, unspecified Idiopathic hypotension Hypotension, unspecified PONV (postoperative nausea and vomiting) Nausea with vomiting RICHAR on CPAP Obstructive sleep apnea (adult) (pediatric) Mild intermittent asthma without complication Unspecified asthma Gastroesophageal reflux disease, unspecified whether esophagitis present On total parenteral nutrition (TPN) Other specified conditions influencing health status Bariatric surgery status Jejunostomy tube present ([facility]) Status of other artificial opening of gastrointestinal tract Acquired hypothyroidism Unspecified hypothyroidism Anemia, unspecified type Anxiety and depression Dysthymic disorder Chronic abdominal pain Abdominal pain, unspecified site Current use of steroid medication Chronic abdominal pain Abdominal pain, unspecified site History of gastric bypass Bariatric surgery status Pre-op testing Preoperative examination, unspecified * Assessment & Plan Note - Stephanie, DARRYL Cornejo - 10/06/2023 4:11 PM EDT Associated Problem(s): Current use of steroid medication Assessment: Daily prednisone for Hives, Follows with PCP * Assessment & Plan Note - Chantal Brown APRN.CNP - 10/06/2023 4:09 PM EDT Associated Problem(s): Chronic abdominal pain Assessment: Managed with Ketamine nasal spray Pt. will not take on DOS * Assessment & Plan Note - Chantal Brown APRN.CNP - 10/06/2023 4:08 PM EDT Associated Problem(s): Anxiety and depression Assessment: Pt. reports mood is stable with medication * Assessment & Plan Note - Chantal Brown APRN.CNP - 10/06/2023 4:07 PM EDT Associated Problem(s): Anemia Assessment: iron supplement labs stable,acceptable for surgery * Assessment & Plan Note - Chantal Brown APRN.CNP - 10/06/2023 4:07 PM EDT Associated Problem(s): Acquired hypothyroidism Assessment: Stable with medications, follows with Endocrinology . * Assessment & Plan Note - Chantal Brown APRN.CNP - 10/06/2023 4:07 PM EDT Associated Problem(s): Jejunostomy tube present (HCC) Assessment: Noted, gives self boluses of water throughout day. * Assessment & Plan Note - Chantal Brown APRN.CNP - 10/06/2023 4:06 PM EDT Associated Problem(s): Bariatric surgery status Assessment: Has had 100 lb weight loss efforts supported * Assessment & Plan Note - Chantal Brown APRN.CNP - 10/06/2023 4:05 PM EDT Associated Problem(s): On total parenteral nutrition (TPN) Assessment: At night. Aware to Hold after MN * Assessment & Plan Note - Chantal Brown APRN.CNP - 10/06/2023 4:04 PM EDT Associated Problem(s): GERD (gastroesophageal reflux disease) Assessment: Managed with med, with OK control * Assessment & Plan Note - Chantal Brown APRN.CNP - 10/06/2023 4:03 PM EDT Associated Problem(s): Asthma Assessment: Stable with inhalers, follows with PCP. * Assessment & Plan Note - Chantal Brown APRN.CNP - 10/06/2023 4:03 PM EDT Associated Problem(s): RICHAR on CPAP Assessment: Does not use CPAP * Assessment & Plan Note - Chantal Brown APRN.CNP - 10/06/2023 4:02 PM EDT Associated Problem(s): PONV (postoperative nausea and vomiting) Assessment: severe, Hx of aspiration pneumonia from current status Reports scopolamine patch works Anesthesia Considerations NPO p MN * Assessment & Plan Note - Chantal Brown APRN.CNP - 10/06/2023 4:01 PM EDT Associated Problem(s): Idiopathic hypotension Assessment: Stable with midodrine (PROAMATINE) , follows with PCP. * Assessment & Plan Note - Chantal Brown APRN.CNP - 10/06/2023 4:00 PM EDT Associated Problem(s): Benign essential HTN Assessment: documented [facility] this [facility] N[facility] - [facility] [place] Other [employer] general Narrative - Reported* Type Description Date [...] hystectomy 2020 Hospitalization History childbirths Hospitalization History [facility] 2019 Hospitalization History [place] axel-gastritis 1 03/2020 [employer] Other [employer] general Narrative - Reported* Type Description Date [...] repair 03/20/2021 Hospitalization History childbirths Hospitalization History [facility] 2019 Hospitalization History [place] reyna-gastritis 1 03/2020 [employer] Other History of Present illness Narrative* Sherry Magaña MD - 04/20/2023 3:45 PM EST And I had a phone conversation patient and I had a phone conversation as she was at home in the replaced by [facility] [place] and I was [facility]. She is recovering from a laparotomy for [...] she has seen her general surgeon at [facility] and will be following up with her gastro enterologist at the clinic. I will see her back by virtual visit in 2 months [facility] Work [facility]: [facility] course Narrative No data available for this section [facility] Discharge instructions* Attachments The following attachments cannot be sent through Care Everywhere. * Uterine Fibroids (Angolan) * Ovarian Cyst: Hemorrhagic (Angolan) [facility] Attachments The following attachments cannot be sent through Care Everywhere. * Finger: Bruises (Angolan) * Subungual Hematoma (Angolan) [facility] [employer] Work Phone: Hospital Discharge instructions* Attachments The following attachments cannot be sent through Care Everywhere. * Abdominal Pain (Angolan) [facility] Discharge instructions No data available for this section [facility]* Attachments The following attachments cannot be sent through Care Everywhere. * Abdominal Pain (Angolan) [facility] Additional Instructions Please take [...] Work Phone: Hospital Discharge instructions Additional Instructions [facility] to manage care: - Full code - Routine vital signs - NPO - Maintain central line, routine care per protocol - Decompress the J-tube by placing it to gravity drain when she does develop [facility] Work Phone: Hospital Discharge instructions Additional Instructions Follow up with your [facility] surgeon Return to the ED if you develop worsening symptoms or concerns[facility] Work Phone: Hospital Discharge instructions Additional Instructions If your symptoms return/worsen or you develop any further concerns or symptoms please see your doctor or return to the emergency department immediately.[facility] Work Phone: Progress note No data available for this section [facility] (narrative)* Consultation (Routine) - New Request Specialty Diagnoses / Procedures Referred By Jazmine hooks Referred To Contact [facility] Diagnoses Articular cartilage disorder of right knee Lucie Mora MD [address] [place] [address] Referral ID Status Reason Start Date Expiration Date V isits Requested Visits Authorized [id number] New Request 06/02/2021 06/27/2022 1 1 [facility] for referral (narrative)* Diagnostic Procedure Only (Routine) - Closed Specialty Diagnoses / Procedures Referred By Jazmine hooks Referred To Contact XR IMAGING Diagnoses Acetabular labrum tear, right, initial encounter Procedures XR HIP GENERAL 3V PELV/AP/LAT RIGHT RADEX HIP UNILATERAL WITH PELVIS 2-3 VIEWS Kuldip Yousif MD [address] [place] [address] Xr Imaging Referral ID Status Reason Start Date Expiration Date V isits Requested Visits Authorized [id number] Closed Auto-Generate d Referral 06/18/2021 07/18/2022 1 1 [facility] for referral (narrative)* Outpatient Procedure (Routine) - Pending Review Specialty Diagnoses / Procedures [facility] Referred To Contact [facility] Diagnoses Gastroesophageal reflux disease without esophagitis Procedures EGD - THERAPEUTIC, EUS, OR TUBE INTERVENTIONS ESOPHAGOGASTRODUODENOSC [place] [address] [place] [id number] [address] Referral ID Status Reason Start Date Expiration Date Visits Requested Visits Authorized [id number] Pending Review Auto-Generat ed Referral 11/17/2021 11/17/2022 1 1 [facility] for referral (narrative)* Outpatient Procedure (Routine) - Authorized Specialty Diagnoses / Procedures Referred By [facility] Referred To Contact [facility] Diagnoses Gastroesophageal reflux disease without esophagitis S/P laparoscopic sleeve gastrectomy Procedures PH IMPEDANCE INSERT OFF MEDS ESOPHGL FUNCJ G-ESOP RFLX IMPD ELTRD Breanna Middleton, PERIOPERATIVE ASSISTANT.FIRE CONTROL ASSISTANT [address] [place] [address] [facility] [address] [place] [address] Referral ID Status Reason Start Date Expiration Date Visits Requested Visits Authorized [id number] Authorized Auto-Generat ed Referral 11/19/2021 11/18/2022 1 1 [facility] for referral (narrative)* Outpatient Procedure (Routine) - Pending Review Specialty Diagnoses / Procedures Referred By Contac t Referred To Contact [facility] Diagnoses Regurgitation of food Gastroesophageal reflux disease, unspecified whether esophagitis present Procedures PH HUERTA INSERT OFF MEDS GASTROESOPHAG REFLX TEST W/TELEMTRY PH ELTRD Breanna Stern APRN.CNP [address] [place] [address] [address] Referral ID Status Reason Start Date Expiration Date Visits Requested Visits Authorized [id number] Pending Review Auto-Generat ed Referral 12/17/2022 1 1 [facility] for referral (narrative)* Outpatient Procedure (Routine) - Closed Specialty Diagnoses / Procedures [facility] Referred To [facility] Diagnoses Gastroesophageal reflux disease without esophagitis Procedures EGD - THERAPEUTIC, EUS, OR TUBE INTERVENTIONS ESOPHAGOGASTRODUODENOSC OPY [place] [address] [place] [address] [address] Referral ID Status Reason Start Date Expiration Date V isits Requested Visits Authorized [id number] Closed Auto-Generate d Referral 11/17/2021 11/17/2022 1 1 [facility] for referral (narrative)* Outpatient Procedure (Routine) - Pending Review Specialty Diagnoses / Procedures Referred By Contac t Referred To [facility] Diagnoses Pre-op evaluation Procedures ECG COMPLETE ECG ROUTINE ECG W/LEAST 12 LDS W/I&R Ioana Hogan PA-C [address] [place] [address] [facility] [address] [place] [address] Referral ID Status Reason Start Date Expiration Date Visits Requested Visits Authorized [id number] Pending Review Auto-Generat ed Referral 01/28/2023 1 1 [facility] for referral (narrative)* Outpatient Procedure (Routine) - Authorized Specialty Diagnoses / Procedures Referred By Contac t Referred To Contact [facility] Diagnoses Esophageal dysphagia S/P gastric bypass Procedures EGD - THERAPEUTIC, EUS, OR TUBE INTERVENTIONS EGD BALLOON DILATION ESOPHAGUS <30 MM DIAM Breanna Stern APRN.CNP [address] [place] [address] [address] Referral ID Status Reason Start Date Expiration Date Visits Requested Visits Authorized [id number] Authorized Auto-Generat ed Referral 03/05/2022 03/05/2023 1 1 [facility] for referral (narrative)* Outpatient Procedure (Routine) - Closed Specialty Diagnoses / Procedures Referred By Contac t Referred To Contact [facility] Diagnoses Esophageal dysphagia S/P gastric bypass Procedures EGD - THERAPEUTIC, EUS, OR TUBE INTERVENTIONS EGD BALLOON DILATION ESOPHAGUS <30 MM DIAM Breanna Stern APRN.CNP [address] [place] [address] [address] Referral ID Status Reason Start Date Expiration Date V isits Requested Visits Authorized [id number] Closed Auto-Generate d Referral 03/05/2022 03/05/2023 1 1 [facility] for referral (narrative)* Outpatient Procedure (Routine) - Pending Review Specialty Diagnoses / Procedures Referred By Contac t Referred To Contact [facility] Diagnoses Constipation, unspecified constipation type Procedures [facility] ANORECTAL MANOMETRY ANORECTAL MANOMETRY Kasie Avalos MD [address] [place] [address] [facility] Disease [address] [address] Referral ID Status Reason Start Date Expiration Date Visits Requested Visits Authorized [id number] Pending Review Auto-Generat ed Referral 07/22/2022 07/23/2023 1 1 [facility] for referral (narrative)* Diagnostic Procedure Only (Routine) - Pending Review Specialty Diagnoses / Procedures Referred By Jazmine hooks Referred To Contact XR IMAGING Diagnoses S/P bariatric surgery Gastroesophageal reflux disease, unspecified whether esophagitis present Procedures XR UPPER GI ROUTINE DOUBLE CONTRAST/AIR RADIOLOGIC EXAM UPR GI TRC DOUBLE CONTRAST STUDY Breanna Stern APRN.CNP [address] [place] [address] Xr Imaging Referral ID Status Reason Start Date Expiration Date Visits Requested Visits Authorized [id number] Pending Review Auto-Generat ed Referral 09/18/2022 10/18/2023 1 1 [facility] for referral (narrative)* Outpatient Procedure (Routine) - Authorized Specialty Diagnoses / Procedures Referred By Jazmine hooks Referred To Contact [facility] Diagnoses Epigastric pain Procedures EGD DIAGNOSTIC ESOPHAGOGASTRODUODENOSC OPY [place] [address] [address] [place] [id number] [facility] Disease [place] [address] [place] [address] Referral ID Status Reason Start Date Expiration Date Visits Requested Visits Authorized [id number] Authorized Auto-Generat ed Referral 10/20/2022 10/21/2023 1 1 [facility] for referral (narrative)* Diagnostic Procedure Only (Routine) - Closed Specialty Diagnoses / Procedures Referred By Jazmine t Referred To Contact US IMAGING Diagnoses Nausea RUQ pain History of cholecystectomy Procedures US ABD RIGHT UPPER QUADRANT US ABDOMINAL REAL TIME W/[place] [address] [place] [address] [place] [address] Referral ID Status Reason Start Date Expiration Date V isits Requested Visits Authorized [id number] Closed Auto-Generate d Referral 11/04/2022 12/04/2023 1 1 * Diagnostic Procedure Only (Routine) - Authorized Specialty Diagnoses / Procedures Referred By Contact Referred To Contact MOLECULAR & FUNCTIONAL IMAGING Diagnoses Nausea RUQ pain History of cholecystectomy Procedures NM HEPATOBILIARY W EF AND/OR RX HEPATOBIL SYST IMAG INC GB W/[place] [address] [place] [address] Molecular & Functional Imaging [address] [place] [address] Referral ID Status Reason Start Date Expiration Date Visits Requested Visits Authorized [id number] Authorized Auto-Generat ed Referral 11/04/2022 12/04/2023 1 1 [facility] for referral (narrative)* Diagnostic Procedure Only (Routine) - Pending Review Specialty Diagnoses / Procedures Referred By Contac t Referred To Contact XR IMAGING Diagnoses Right knee pain, unspecified chronicity Procedures XR KNEE GENERAL 4V AP BOTH/PA BOTH/LAT/MERC RIGHT RADIOLOGIC EXAM KNEE COMPLETE 4/MORE VIEWS Agustin Salmeron PA-C [address] [place] [address] Xr Imaging [facility] Referral ID Status Reason Start Date Expiration Date Visits Requested Visits Authorized [id number] Pending Review Auto-Generat ed Referral 11/04/2022 12/04/2023 1 1 [facility] for referral (narrative)* Outpatient Procedure (Urgent) - Authorized Specialty Diagnoses / Procedures Referred By Contac t Referred To Contact [facility] Diagnoses Chronic nausea RUQ pain Procedures US MESENTERIC ARTERY CMPLT VAS LAB DUP-SCAN ARTL TIARA ABDL/PEL/SCROT&/[place] [address] [place] [address] [address] Referral ID Status Reason Start Date Expiration Date Visits Requested Visits Authorized [id number] Authorized Auto-Generat ed Referral 11/23/2022 11/23/2023 1 1 [facility] for referral (narrative)* Outpatient Procedure (Urgent) - Closed Specialty Diagnoses / Procedures Referred By Contac t Referred To Contact [facility] Diagnoses Chronic nausea RUQ pain Procedures US MESENTERIC ARTERY CMPLT VAS LAB DUP-SCAN ARTL TIARA ABDL/PEL/SCROT&/[place] [address] [place] [address] [address] Referral ID Status Reason Start Date Expiration Date V isits Requested Visits Authorized [id number] Closed Auto-Generate d Referral 11/23/2022 11/23/2023 1 1 [facility] for referral (narrative)* Diagnostic Procedure Only (Routine) - Closed Specialty Diagnoses / Procedures Referred By Contac t Referred To Contact US IMAGING Diagnoses Nausea RUQ pain History of cholecystectomy Procedures US ABD RIGHT UPPER QUADRANT US ABDOMINAL REAL TIME W/[place] [address] [place] [address] [place] [address] Referral ID Status Reason Start Date Expiration Date V isits Requested Visits Authorized [id number] Closed Auto-Generate d Referral 11/04/2022 12/04/2023 1 1 [facility] for referral (narrative)* Outpatient Procedure (Routine) - Authorized Specialty Diagnoses / Procedures Referred By Jazmine hooks Referred To Contact [facility] Diagnoses Gastroesophageal reflux disease, unspecified whether esophagitis present Procedures PH HUERTA INSERT ON MEDS GASTROESOPHAG REFLX TEST W/TELEMTRY PH JAKETRKasie Moore MD [address] [facility] [place] [address] [address] Referral ID Status Reason Start Date Expiration Date Visits Requested Visits Authorized [id number] Authorized Auto-Generat ed Referral 04/28/2023 04/27/2024 1 1 * Outpatient Procedure (Routine) - Authorized Specialty Diagnoses / Procedures Referred By Jazmine hooks Referred To [facility] Diagnoses Gastroesophageal reflux disease, unspecified whether esophagitis present Procedures EGD - THERAPEUTIC, EUS, OR TUBE INTERVENTIONS ESOPHAGOGASTRODUODENOSC OPY TRANSORAL DIAGNOSTIC Kasie Avalos MD [address] [place] [address] [address] Referral ID Status Reason Start Date Expiration Date Visits Requested Visits Authorized [id number] Authorized Auto-Generat ed Referral 04/28/2023 04/27/2024 1 1 [facility] for referral (narrative)* Outpatient Procedure (Routine) - Closed Specialty Diagnoses / Procedures [facility] Diagnoses Gastroesophageal reflux disease, unspecified whether esophagitis present Procedures EGD - THERAPEUTIC, EUS, OR TUBE INTERVENTIONS ESOPHAGOGASTRODUODENOSC OPY TRANSORAL DIAGNOSTIC Kasie Avalos MD [address] [place] [address] [address] Referral ID Status Reason Start Date Expiration Date V isits Requested Visits Authorized [id number] Closed Auto-Generate d Referral 04/28/2023 04/27/2024 1 1 [facility] for referral (narrative)* Outpatient Procedure (Routine) - Authorized Specialty Diagnoses / Procedures [facility] Referred To Contact [facility] Diagnoses Multiple gastric ulcers Procedures EGD DIAGNOSTIC ESOPHAGOGASTRODUODENOSC OPY TRANSORAL DIAGNOSTIC Kasie Avalos MD [address] [place] [address] [address] Referral ID Status Reason Start Date Expiration Date Visits Requested Visits Authorized [id number] Authorized Auto-Generat ed Referral 09/08/2023 09/07/2024 1 1 [facility] for visit NarrativeGeneral Surgery Referral Update[place] [employer] Other Reason for visit Narrative* Outpatient Procedure (Routine) - Closed Specialty Diagnoses / Procedures [facility] Referred To Contact [facility] Diagnoses Gastroesophageal reflux disease without esophagitis Procedures EGD - THERAPEUTIC, EUS, OR TUBE INTERVENTIONS ESOPHAGOGASTRODUODENOSC OPY [place] [address] [place] [address] [address] Referral ID Status Reason Start Date Expiration Date V isits Requested Visits Authorized [id number] Closed Auto-Generate d Referral 11/17/2021 11/17/2022 1 1 [facility] for visit Narrative* Outpatient Procedure (Routine) - Closed Specialty Diagnoses / Procedures [facility] Diagnoses Esophageal dysphagia S/P gastric bypass Procedures EGD - THERAPEUTIC, EUS, OR TUBE INTERVENTIONS EGD BALLOON DILATION ESOPHAGUS <30 MM DIAM Breanna Stern, PERIOPERATIVE ASSISTANT.FIRE CONTROL ASSISTANT [address] [place] [address] [facility] Disease [address] [address] Referral ID Status Reason Start Date Expiration Date V isits Requested Visits Authorized [id number] Closed Auto-Generate d Referral 03/05/2022 03/05/2023 1 1 [facility] for visit Narrative* Outpatient Procedure (Urgent) - Closed Specialty Diagnoses / Procedures Referred By Contac t Referred To Contact [facility] [place] Diagnoses Chronic nausea RUQ pain Procedures US MESENTERIC ARTERY CMPLT VAS LAB DUP-SCAN ARTL TIARA ABDL/PEL/SCROT&/[place] [address] [place] [address] [address] Referral ID Status Reason Start Date Expiration Date V isits Requested Visits Authorized [id number] Closed Auto-Generate d Referral 11/23/2022 11/23/2023 1 1 [facility] for visit Narrative* Diagnostic Procedure Only (Routine) - Closed Specialty Diagnoses / Procedures Referred By Contac t Referred To Contact US IMAGING Diagnoses Nausea RUQ pain History of cholecystectomy Procedures US ABD RIGHT UPPER QUADRANT US ABDOMINAL REAL TIME W/[place] [address] [place] [address] Us Imaging [facility] Referral ID Status Reason Start Date Expiration Date V isits Requested Visits Authorized [id number] Closed Auto-Generate d Referral 11/04/2022 12/04/2023 1 1 [facility] for visit Narrative* Outpatient Procedure (Routine) - Closed Specialty Diagnoses / Procedures Referred By Contac t Referred To Contact [facility] Diagnoses Gastroesophageal reflux disease, unspecified whether esophagitis present Procedures EGD - THERAPEUTIC, EUS, OR TUBE INTERVENTIONS ESOPHAGOGASTRODUODENOSC OPY TRANSORAL DIAGNOSTIC Kasie Avalos MD [address] [place] [address] [facility] Disease [place] [id number] Referral ID Status Reason Start Date Expiration Date V isits Requested Visits Authorized [id number] Closed Auto-Generate d Referral 04/28/2023 04/27/2024 1 1 [facility] Summary Purpose Family History Relationship Condition Age at Onset Recorded Date/T fabiano father Hypothyroidism Unknown Not Specified Family history of mental disorder Unknow n Hypertension Unknown Diabetes mellitus Unknown Relationship Condition Age at Onset Recorded Date/T fabiano father Hypothyroidism Unknown mother Family history of mental disorder Unknown Hypertension Unknown Diabetes mellitus Unknown Advance Directives Documents on File Type Date Recorded Patient Flash Developer Expl anation Advance Directive(s) 03/13/2021 9:49 AM Date Activated Date Inactivated Comments 12/06/2022 9:37 PM 12/09/2022 8:48 PM Question Answer Comments Full Code Order Discussed With: Patient Date Activated Date Inactivated Comments 11/22/2022 8:03 PM 11/23/2022 5:11 PM Question Answer Comments Full Code Order Discussed With: Patient Documents on File Type Date Recorded Patient Flash Developer Expl anation Advance Directive(s) 03/13/2021 9:49 AM [...] Documents on File Type Date Recorded Patient Flash Developer Expl anation Advance Directive(s) 07/04/2021 4:13 PM [...] Documents on File Type Date Recorded Patient Flash Developer Expl anation Advance Directive(s) 03/13/2021 9:49 AM [...] with Follow Up in 24 Hours ([facility]) ([place]) documented in this encounter Assessments Diagnosis Lower abdominal pain- Primary Abdominal pain, other specified site Reason for Referral Status Reason Specialty Diagnoses / Procedures Referre d By Contact Referred To Contact Closed Procedures US PELVIC WITH TRANSVAGINAL WITH DOPPLER Juanito Laird PA-C [address] [place] [address] Specialty Diagnoses / Procedures Referred By Contact Referred To Contact [facility] Diagnoses Tear of right acetabular labrum, subsequent encounter Procedures CONSULT TO PHYSICAL THERAPY PHYSICAL THERAPY EVALUATION HIGH COMPLEX 45 MINS Justine Shabazz PA-C [address] [place] [address] [facility] [place] [address] [place] [address] Referral ID Status Reason Start Date Expiration Date Visits Requested Visits Authorized [id number] Pending Review Auto-Generat ed Referral 06/23/2021 06/23/2022 1 1 Reason 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 - Please request Dr. Keven Gomez [phone] Diagnosis 1 Hernia (K46.9) Referral Organization [facility] Family Priscila Guo Referring Provider First Name Shanna Referring Provider Last Name Slade Referring Provider Specialty Nurse Ramona castañeda Referred Organization [facility] Referred Address [address] [facility],[place],[address] Referred Provider Specialty General Surg ammon Referral Priority Routine Specialty Diagnoses / Procedures Referred By Jazmine hooks Referred To Contact Diagnoses S/P laparoscopic sleeve gastrectomy Procedures CONSULT TO BARIATRIC NUTRITION OFFICE/OUT[facility]IENT [facility] MDM 60-74 MINUTES Sabina Joy APRN.FIRE CONTROL ASSISTANT [address] [place] [address] Referral ID Status Reason Start Date Expiration Date Visits Requested Visits Authorized [id number] Pending Review PCP Requested Referral 10/09/2021 10/09/2022 [...] BARIATRIC ESOPHAGOGASTRODUODENOSCO PY TRANSORAL DIAGNOSTIC Sabina Joy APRN.FIRE CONTROL ASSISTANT [address] [place] [address] [facility] [place] [address] [place] [address] Referral ID Status Reason Start Date Expiration Date Visits Requested Visits Authorized [id number] Pending Review Auto-Generat ed Referral 10/09/2021 10/09/2022 1 1 Specialty Diagnoses / Procedures Referred By Contac t Referred To Contact Diagnoses RICHAR (obstructive sleep apnea) Procedures CONSULT TO SLEEP MEDICINE - ADULT OFFICE/OUTPATIENT [facility] 60-74 MINUTES Sabina Joy APRN.FIRE CONTROL ASSISTANT [address] [place] [phone] Referral ID Status Reason Start Date Expiration Date Visits Requested Visits Authorized [id number] Authorized PCP Requested Referral 2 01/02/2023 1 1 Specialty Diagnoses / Procedures Referred By Contac t Referred To Contact [facility] Diagnoses S/P bariatric surgery Primary osteoarthritis involving multiple joints Procedures CONSULT TO PHYSICAL THERAPY PHYSICAL THERAPY EVALUATION HIGH COMPLEX 45 MINS Breanna Stern APRN.FIRE CONTROL ASSISTANT [address] [place] [phone] [facility] [place] [address] [place] [address] Referral ID Status Reason Start Date Expiration Date Visits Requested Visits Authorized [id number] Pending Review Auto-Generat ed Referral 2 02/03/2023 1 1 Specialty Diagnoses / Procedures Referred By Contac t Referred To Contact Endocrinology Diagnoses History of adrenal insufficiency Hypothyroidism, unspecified type Procedures CONSULT TO ENDOCRINOLOGY OFFICE/OUTPATIENT [facility] 60-74 MINUTES Aliyah Washburn PA-C [address] [place] [address] Referral ID Status Reason Start Date Expiration Date Visits Requested Visits Authorized [id number] Authorized PCP Requested Referral 06/12/2022 06/12/2023 1 1 Specialty Diagnoses / Procedures Referred By Contac t Referred To Contact Allergy Diagnoses Rash and nonspecific skin eruption Pain in eye, unspecified laterality Facial edema Procedures CONSULT TO ALLERGY/IMMUNOLOGY OFFICE/OUTPATIENT [facility] 60-74 MINUTES Samara Evans MD [address] [place] [address] Referral ID Status Reason Start Date Expiration Date Visits Requested Visits Authorized [id number] Authorized PCP Requested Referral 07/28/2022 07/28/2023 1 1 Specialty Diagnoses / Procedures Referred By Contac t Referred To Contact CT IMAGING Diagnoses Generalized abdominal pain Procedures CTA ABD/PEL W IVCON CT ANGIO ABD&PLVIS CNTRST MTRL W/WO CNTRST Agustin Piper MD [address] [place] [address] Ct [facility] [place] [address] Referral ID Status Reason Start Date Expiration Date Visits Requested Visits Authorized [id number] Authorized Auto-Generat ed Referral 3 01/17/2023 1 1 Specialty Diagnoses / Procedures Referred By Contac t Referred To Contact Home Health Services Diagnoses Median arcuate ligament syndrome (CMS/HCC) Alicia Toro, PERIOPERATIVE ASSISTANT-FIRE CONTROL ASSISTANT [address] [facility] [address] [place] [address] Referral ID Status Reason Start Date Expiration Date Visits Requested Visits Authorized [id number] Authorized Specialty Services Required 03/08/2023 03/07/2024 999 999 Specialty Diagnoses / Procedures Referred By Contac t Referred To Contact Home Health Services Diagnoses Other [place] [address] [facility] [address] [place] [phone] Referral ID Status Reason Start Date Expiration Date Visits Requested Visits Authorized [id number] Authorized Specialty Services Required 07/01/2023 06/30/2024 999 999 Specialty Diagnoses / Procedures Referred By Contac t Referred To Contact Francisco J Steve MD [address] [place] [phone] Referral ID Status Reason Start Date Expiration Date V isits Requested Visits Authorized [id number] Pending Review 1 1 Specialty Diagnoses / Procedures Referred By Contac t Referred To Contact TRANSPL[facility] Diagnoses Chronic nausea History of laparoscopic partial gastrectomy History of sphincterotomy of sphincter of Oddi Median arcuate ligament syndrome (HCC) Procedures CONSULT TO [facility] EXPL[facility]ORY LAPAROTOMY CELIOTOMY W/[place] [address] [place] [address] [facility] [address] [address] Referral ID Status Reason Start Date Expiration Date Visits Requested Visits Authorized [id number] Canceled Financial Clearance Required - OON Payor 07/19/2023 07/18/2024 99 99 Specialty Diagnoses / Procedures Referred By Contduglas t Referred To Contact Diagnoses Chronic abdominal pain History of gastric bypass Pre-op testing Procedures REFER TO [facility] / [facility] - PREOPERATIVE OPTIMIZATION OFFICE/OUTPATIENT [facility] 60 [place] [address] [place] [address] Referral ID Status Reason Start Date Expiration Date Visits Requested Visits Authorized [id number] Authorized PCP Requested Referral 09/09/2023 09/08/2024 1 1 Medications Administered Section Inactive Administered Medications - up to 3 most recent administrations Medication Order MAR Action Action Date Dose Rate Site benzocaine 20% (TOPEX) TOPICAL, X (OR/PROCEDURE) PRN, Starting on Heena 12/25/21 at 0939, Until Heena 12/25/21 at 0939, Intraprocedure Given 12/25/2021 9:39 AM EST 1 [facility] Meperidine (PF) injection (DEMEROL) X (OR/PROCEDURE) PRN, [...] section and content) DATE CREATED AUTHOR 09/11/2017 [facility] DATE CREATED AUTHOR AUTHOR'S ORGANIZ ATION 06/03/2021 [facility] DATE CREATED AUTHOR AUTHOR'S ORGANIZ ATION 06/24/2022 [facility] DATE CREATED AUTHOR AUTHOR'S ORGANIZ ATION 11/01/2022 [facility] DATE CREATED AUTHOR AUTHOR'S ORGANIZ ATION 11/07/2022 [facility] DATE CREATED AUTHOR AUTHOR'S ORGANIZ ATION 11/22/2022 [facility] DATE CREATED AUTHOR AUTHOR'S ORGANIZ ATION 11/29/2022 [facility] DATE CREATED AUTHOR AUTHOR'S ORGANIZ ATION 12/16/2022 [facility] DATE CREATED AUTHOR AUTHOR'S ORGANIZ ATION 02/12/2023 [facility] DATE CREATED AUTHOR AUTHOR'S ORGANIZ ATION 02/18/2023 [facility] DATE CREATED AUTHOR AUTHOR'S ORGANIZ ATION 06/27/2023 [facility] DATE CREATED AUTHOR AUTHOR'S ORGANIZ ATION 08/06/2023 [facility] DATE CREATED AUTHOR AUTHOR'S ORGANIZ ATION 09/07/2023 [facility] DATE CREATED AUTHOR AUTHOR'S ORGANIZ ATION 09/20/2023 [facility] DATE CREATED AUTHOR AUTHOR'S ORGANIZ ATION 09/27/2023 [facility] DATE CREATED AUTHOR AUTHOR'S ORGANIZ ATION 09/29/2023 [facility] DATE CREATED AUTHOR AUTHOR'S ORGANIZ ATION 10/03/2023 [facility] EPIC DATE CREATED AUTHOR AUTHOR'S ORGANIZ ATION 10/08/2023 [facility] DATE CREATED AUTHOR AUTHOR'S ORGANIZ ATION 10/08/2023 [facility] Reason for Visit (unrecogniz ed section and content) Reason Comments Fatigue Anxiety Stress Specialty Diagnoses / Procedures Referred By Jazmine hooks Referred To Contact Psychology / ADULT PSYCHOLOGY Diagnoses follow up Procedures VIDEO PSYC/PSYL EST Pablo Lebron, PSCECILIA [address] [place] [address] Pablo Lebron, PSAPS [address] [place] [address] Referral ID Status Reason Start Date Expiration Date V isits Requested Visits Authorized [id number] Pending Review 06/09/2023 09/07/2023 1 1 Reason Comments Abdominal Pain RUQ abdominal pain t hat is spreading across her back and into the left side. pt states that she does not have a gallbladder or appendix and has been treated by [facility] recently for bowel adhesions and it is just getting worse. 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 Reason Comments Follow-up Pt presents [...] REFLX TEST W/TELEMTRY PH ELTRD Breanna Stern, SLIM.FIRE CONTROL ASSISTANT [address] [place] [address] [facility] [place] [address] [place] [address] Referral ID Status Reason Start Date Expiration Date V isits Requested Visits Authorized [id number] Closed Auto-Generate d Referral 12/25/2021 12/17/2022 1 [...] VIDEO PSYC/PSYL EST Self Pablo Lebron, PSYD [address] [place] [address] Referral ID Status Reason Start Date Expiration Date V isits Requested Visits Authorized [id number] Outside PCP 09/21/2022 12/20/2022 1 1 Reason Comments Anxiety Stress Specialty Diagnoses / Procedures Referred By Jazmine t Referred To Contact Psychology / ADULT PSYCHOLOGY Diagnoses Follow up Procedures VIDEO PSYC/PSYL EST Pablo Lebron, PSYD [address] [facility] [address] [place] [address] Pablo Lebron, PSYD [address] [place] [address] Referral ID Status Reason Start Date Expiration Date V isits Requested Visits Authorized [id number] Pending Review 10/05/2022 01/03/2023 1 1 Reason [...] CT scans showing possible kidney stones near [facility], here today because hands turned brown [...] By Jazmine t Referred To Contact Diagnoses Median arcuate ligament syndrome (CMS/HCC) 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] Procedures ID UNLISTED PX ABDOMEN MUSCULOSKELETAL SYSTEM Release Median Arcuate [place] [address] [place] [address] [place] [address] [place] [address] Referral ID Status Reason Start Date Expiration Date Visits Re quested Visits Authorized [id number] 1 1 Reason Comments Abdominal Pain Specialty Diagnoses / Procedures Referred By Contac t Referred To Contact Diagnoses Abdominal pain History of gastric bypass Nausea and vomiting, unspecified vomiting type nausea and vomiting [place] [address] [place] [address] [place] [address] [address] [place] [address] Referral ID Status Reason Start Date Expiration Date Visits Re quested Visits Authorized [id number] 1 1 Reason Comments Weight Loss Surgery Reason Comments Established Patient Reason Comments Appointment Cancel EGD Reason Comments Patient Question Reason Comments Vomiting Reason Comments 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 Reason Onset Date Comments Refill [...] Procedures [place] [address] [facility] [address] [place] [address] [address] [address] [place] [address] Referral ID Status Reason Start Date Expiration Date Visits Re quested Visits Authorized [id number] 1 1 Reason Comments Received Outside Medical Records Reason Comments Education Of Patient/family Reminder Call 08/26/23 appt confirm ed Reason Comments Establish Care pain Reason Comments Patient 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 Designer - 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 Reason Onset Date Comments Refill Request 08/23/2023 Reason Onset Date Comments Procedure 08/26/2023 HUERTA 48 Hour pH Capsule Placement Specialty Diagnoses / Procedures Referred By Contac t Referred To Contact [facility] Diagnoses Gastroesophageal reflux disease, unspecified whether esophagitis present Procedures PH HUERTA INSERT ON [facility] GASTROESOPHAG REFLX TEST W/TELEMTRY PH ELKasie Mccullough, MD [address] [place] [address] [facility] [place] [address] [place] [address] Referral ID Status Reason Start Date Expiration Date V isits Requested Visits Authorized [id number] Closed Auto-Generate d Referral 04/28/2023 04/27/2024 1 1 Reason Onset Date Comments Procedure 08/31/2023 48 Hr HUERTA pH D ownload Reason Comments 10/20/2023 Diagnostic Laparosco py Reason Comments Established Patient 3 month follow up Reason Onset Date Comments Refill Request 09/20/2023 Reason Comments Anxiety Stress Fatigue Specialty Diagnoses / Procedures Referred By Jazmine hooks Referred To Contact Psychology / ADULT PSYCHOLOGY Diagnoses follow up request Procedures VIDEO PSYC/PSYL EST Self Pablo Lebron, ROSALBA [address] [place] [address] Referral ID Status Reason Start Date Expiration Date V isits Requested Visits Authorized [id number] Outside PCP 09/28/2023 02/15/2024 99 99 Altagracia Arnett RN - 01/30/2020 5:34 PM [...] cart, no distress noted. Emergency Department Report [facility] EMERGENCY DEPARTMENT Service Date:.01/30/20 PCP: Shanna June Chief Complaint: Chief Complaint Patient presents with Abdominal Pain RUQ abdominal pain that is spreading across her back and into the left side. pt states that she does not have a gallbladder or appendix and has been treated by [facility] recently for bowel adhesions and it is [...] file Gets together: Not on file Attends holiness service: Not on file Active member of [...] with a prescription of Zofran and some [place] to help with some of the discomfort. [...] 08/28/2021 08/29/2021 08/30/2021 bupivacaine-EPINEPHrine PF (MARCAINE-w/EPINEPHRINE) 0.5% -[id number] injection 10 mL (COMPLETED) 10 mL, Dental, [...] days. 0754 (Given - Provid er: Faviola Álvarez RN) prochlorperazine (COMPAZINE) injection 10 mg [...] RN)2000 (Given - Provider: Eileen Austin RN) 0903 (Given - Provider: Nadia Zee RN)2100 (Due) enoxaparin (Lovenox) syringe 40 mg 40 mg, subcutaneous, Daily, First dose on Wed03/06/23 at 1130 0840 (Given - Provider: Cole Nuñez RN) 0821 (Given - Provider: Nadia Zee RN) 901 (Given - Provider: Nadia Zee RN) escitalopram [...] 0823 (Given - Provider: Nadia Zee, DEE) 0907 (Given - Provider: Nadia Zee, DEE) mirtazapine [...] DEE)2000 (Given - Provider: Eileen Austin, DEE) 09 (Given - Provider: Nadia Zee RN)2100 (Due) Continuous Medication Order 03/08/2023 03/09/2023 03/10/2023 sodium chloride 0.45 % with KCl 20 mEq/L infusion 75 mL/hr, intravenous, Continuous, Starting on Wed03/07/23 at 1645 0230 (Rate/Dose Verify - Provider: Olga Paz, RN)0852 (New Bag - Provider: Cole Nuñez, RN) 0145 (New Bag - Provider: Danny Middleton, DEE)1954 (New Bag - Provider: Eileen Austin, RN) [...] Nadia Zee, DEE)1848 (Given - Provider: Nadia Zee RN) 0350 [...] Paz, DEE)0637 (Given - Provider: Olga Paz, DEE)0840 (Given - Provider: Cole Nuñez RN) HYDROmorphone [...] line, Starting on 03/06/23 at 1240, Give ID if patient is unable to take orally or receive by injection. 1119 (See Alternative - Provider: Cole Nuñez RN) 1622 (See Alternative - Provider: Nadia Zee RN) 0902 (See Alternative - Provider: Nadia J Saadia, RN) prochlorperazine (Compazine) tablet 10 mg(Linked Group [...] line, Starting on 03/06/23 at 1240
Give ID if patient is unable to take orally [...] 08 (Given - Provider: Mariah Herrera RN) 1006 [...] RN) 0826 (Given - Provider: Mariah Herrera, DEE)1219 (Given - Provider: Mariah Herrera RN)1647 (Given [...] Provider: Grecia Schaffer RN - Reason: Other) 0900 (Not Given - [...] at 2100 0913 (Given - Provider: Beatriz Dow RN)223 [...] Grecia Schaffer, RN)1000 (Stopped - Provider: Tory Mcmullen RN)1001 [...] at 2138 2300 (Given - Provider: Aliyah Galvan RN) 0532 (Given - Provider: Aliyah Galvan, [...] Schaffer RN)1145 (See Alternative - Provider: Tory Mcmullen RN) [...] RN)2136 (Given - Provider: Grecia Schaffer RN) 0605 [...] Attending Provider Active Start: July 17, 2023 Field Support Engineer Relationship Specialty Start Date End Date Shanan June FNP [address] [place] [address] PCP - General Nurse Practitioner - Family 01/30/20 Field Support Engineer Relationship Specialty Start Date End Date Shanna June CNP [address] [place] [address] PCP - General Family Practice 01/31/20 Antelmo Davey [address] [place] [address] 09/25/19 [place] [address] [place] [address] Consulting General Surgery 09/25/19 Shanna June CNP [address] [place] [address] Referring Family Practice 10/19/19 Field Support Engineer Relationship Specialty Start Date End Date Shanna June CNP [address] [place] [address] PCP - General Family Practice 01/31/20 Antelmo Davey MD [address] [place] [address] (Fax) 09/25/19 [place] [address] [place] [address] Consulting General Surgery 09/25/19 Shanna June CNP [address] [place] [address] Referring Family Practice 10/19/19 Field Support Engineer Relationship Specialty Start Date End Date Shanna June CNP [address] [place] [address] PCP - General Family Practice 01/31/20 Antelmo Davey MD [address] [facility] [place] [address] (Fax) 09/25/19 [place] [address] [facility] [place] [address] Consulting General Surgery 09/25/19 Shanna June CNP [address] [place] [address] Referring Family Practice 10/19/19 Field Support Engineer Relationship Specialty Start Date End Date Shanna June CNP [address] [place] [address] PCP - General Family Practice 01/31/20 Antelmo Davey MD [address] [facility] [place] [address] (Fax) 09/25/19 [place] [address] [place] [address] Consulting General Surgery 09/25/19 Shanna June CNP [address] [place] [address] Referring Family Practice 10/19/19 Field Support Engineer Relationship Specialty Start Date End Date FoleyWally [address] [facility] [place] [address] PCP - General Specialist 07/27/21 Field Support Engineer Relationship Specialty Start Date End Date Shanna June CNP [address] [place] [address] PCP - General Family Practice 01/31/20 Antelmo Davey MD [address] [place] [address] (Fax) 09/25/19 [place] [address] [place] [address] Consulting General Surgery 09/25/19 Shanna June, FIRE CONTROL ASSISTANT [address] [place] [address] Referring Family Practice 10/19/19 Field Support Engineer Relationship Specialty Start Date End Date Shanna June CNP [address] [place] [address] PCP - General Family Practice 01/31/20 Antelmo Davey MD [address] [place] [address] (Fax) 09/25/19 [place] [address] [facility] [place] [address] Consulting General Surgery 09/25/19 Shanna June CNP [address] [place] [address] Referring Family Practice 10/19/19 Field Support Engineer Relationship Specialty Start Date End Date Shanna June CNP [address] [place] [address] PCP - General Family Practice 01/31/20 Antelmo Davey MD [address] [facility] [place] [address] (Fax) 09/25/19 [place] [address] [place] [address] Consulting General Surgery 09/25/19 Shanna June, FIRE CONTROL ASSISTANT [address] [place] [address] Referring Family Practice 10/19/19 Field Support Engineer Relationship Specialty Start Date End Date Shanna June CNP [address] [place] [address] PCP - General Family Practice 01/31/20 Antelmo Davey MD [address] [facility] [place] [address] (Fax) 09/25/19 [place] [address] [place] [address] Consulting General Surgery 09/25/19 SladeShanna, FIRE CONTROL ASSISTANT [address] [place] [address] Referring Family Practice 10/19/19 Field Support Engineer Relationship Specialty Start Date End Date Shanna June CNP [address] [place] [address] PCP - General Family Practice 01/31/20 Antelmo Davey MD [address] [facility] [place] [address] (Fax) 09/25/19 [place] [address] [place] [address] Consulting General Surgery 09/25/19 Slade ShannaBETH tomlin [address] [place] [address] Referring Family Practice 10/19/19 Field Support Engineer Relationship Specialty Start Date End Date Shanna June CNP [address] [place] [address] PCP - General Family Practice 01/31/20 Antelmo Davey MD [address] [place] [address] (Fax) 09/25/19 [place] [address] [place] [address] Consulting General Surgery 09/25/19 Shanna June CNP [address] [place] [address] Referring Family Practice 10/19/19 Field Support Engineer Relationship Specialty Start Date End Date Og Wally Lesia [address] [place] [address] PCP - General Specialist 07/27/21 Field Support Engineer Relationship Specialty Start Date End Date Shanna June CNP [address] [place] [address] PCP - General Family Practice 01/31/20 Antelmo Davey MD [address] [place] [address] 09/25/19 [place] [address] [place] [address] Consulting General Surgery 09/25/19 Shanna June CNP [address] [place] [address] Referring Family Practice 10/19/19 Field Support Engineer Relationship Specialty Start Date End Date SladeDenverShannaBETH tomlin [address] [place] [address] PCP - General Family Practice 01/31/20 Antelmo Davey MD [address] [facility] [place] [address] 09/25/19 [place] [address] [facility] [place] [address] Consulting General Surgery 09/25/19 Shanna June CNP [address] [place] [address] Referring Family Practice 10/19/19 Field Support Engineer Relationship Specialty Start Date End Date Shanna June CNP [address] [place] [address] PCP - General Family Practice 01/31/20 Antelmo Davey MD [address] [facility] [place] [address] (Fax) 09/25/19 [place] [address] [place] [address] Consulting General Surgery 09/25/19 Shanna June CNP [address] [place] [address] Referring Family Practice 10/19/19 Field Support Engineer Relationship Specialty Start Date End Date Shanna June CNP [address] [place] [address] PCP - General Family Practice 01/31/20 Antelmo Davey MD [address] [place] [address] (Fax) 09/25/19 [place] [address] [place] [address] Consulting General Surgery 09/25/19 Shanna June, FIRE CONTROL ASSISTANT [address] [place] [address] Referring Family Practice 10/19/19 Field Support Engineer Relationship Specialty Start Date End Date Shanna June CNP [address] [place] [address] PCP - General Family Medicine 01/31/20 Antelmo Davey MD [address] [facility] [place] [address] (Fax) 09/25/19 [place] [address] [facility] [place] [address] Consulting General Surgery 09/25/19 Shanna June, FIRE CONTROL ASSISTANT [address] [place] [address] Referring Family Medicine 10/19/19 Field Support Engineer Relationship Specialty Start Date End Date Shanna June, FIRE CONTROL ASSISTANT [address] [place] [address] PCP - General Family Medicine 01/31/20 Antelmo Davey MD [address] [facility] [place] [address] (Fax) 09/25/19 [place] [address] [place] [address] Consulting General Surgery 09/25/19 Shanna June CNP [address] [place] [address] Referring Family Medicine 10/19/19 Field Support Engineer Relationship Specialty Start Date End Date Shanna June CNP [address] [place] [address] PCP - General Family Medicine 01/31/20 Antelmo Davey MD [address] [facility] [place] [address] (Fax) 09/25/19 [place] [address] [facility] [place] [address] Consulting General Surgery 09/25/19 Shanna June, FIRE CONTROL ASSISTANT [address] [place] [address] Referring Family Medicine 10/19/19 Field Support Engineer Relationship Specialty Start Date End Date Shanna June CNP [address] [place] [address] PCP - General Family Medicine 01/31/20 Antelmo Davey MD [address] [facility] [place] [address] 09/25/19 [place] [address] [facility] [place] [address] Consulting General Surgery 09/25/19 Shanna June, FIRE CONTROL ASSISTANT [address] [place] [address] Referring Family Medicine 10/19/19 Field Support Engineer Relationship Specialty Start Date End Date Shanna June CNP [address] [place] [address] PCP - General Family Medicine 01/31/20 Antelmo Davey MD [address] [facility] [place] [address] (Fax) 09/25/19 [place] [address] [place] [address] Consulting General Surgery 09/25/19 Shanna June, FIRE CONTROL ASSISTANT [address] [place] [address] Referring Family Medicine 10/19/19 Field Support Engineer Relationship Specialty Start Date End Date Slade Shanna, FIRE CONTROL ASSISTANT [address] [place] [address] PCP - General Family Medicine 01/31/20 Antelmo Davey MD [address] [facility] [place] [address] (Fax) 09/25/19 [place] [address] [facility] [place] [address] Consulting General Surgery 09/25/19 Slade Shanna, FIRE CONTROL ASSISTANT [address] [place] [address] Referring Family Medicine 10/19/19 Field Support Engineer Relationship Specialty Start Date End Date Shanna June, FIRE CONTROL ASSISTANT [address] [place] [address] PCP - General Family Medicine 01/31/20 Antelmo Davey MD [address] [facility] [place] [address] (Fax) 09/25/19 [place] [address] [place] [address] Consulting General Surgery 09/25/19 Shanna June, FIRE CONTROL ASSISTANT [address] [place] [address] Referring Family Medicine 10/19/19 Field Support Engineer Relationship Specialty Start Date End Date Shanna June CNP [address] [place] [address] PCP - General Family Medicine 01/31/20 Antelmo Davey MD [address] [facility] [place] [address] (Fax) 09/25/19 [place] [address] [place] [address] Consulting General Surgery 09/25/19 SladeShanna, FIRE CONTROL ASSISTANT [address] [place] [address] Referring Family Medicine 10/19/19 Field Support Engineer Relationship Specialty Start Date End Date Shanna June FIRE CONTROL ASSISTANT [address] [place] [address] PCP - General Family Medicine 01/31/20 Antelmo Davey MD [address] [place] [address] (Fax) 09/25/19 [place] [address] [place] [address] Consulting General Surgery 09/25/19 SladeDenyie, FIRE CONTROL ASSISTANT [address] [place] [address] Referring Family Medicine 10/19/19 Field Support Engineer Relationship Specialty Start Date End Date Shanna June CNP [address] [place] [address] PCP - General Family Medicine 01/31/20 Antelmo Davey MD [address] [place] [address] (Fax) 09/25/19 [place] [address] [place] [address] Consulting General Surgery 09/25/19 Shanna June CNP [address] [place] [address] Referring Family Medicine 10/19/19 Field Support Engineer Relationship Specialty Start Date End Date Shanna June CNP [address] [place] [address] PCP - General Family Medicine 01/31/20 Antelmo Davey MD [address] [place] [address] (Fax) 09/25/19 [place] [address] [facility] [place] [address] Consulting General Surgery 09/25/19 Shanna June CNP [address] [place] [address] Referring Family Medicine 10/19/19 Field Support Engineer Relationship Specialty Start Date End Date Shanna June CNP [address] [place] [address] PCP - General Family Medicine 01/31/20 Antelmo Davey MD [address] [place] [address] (Fax) 09/25/19 [place] [address] [place] [address] Consulting General Surgery 09/25/19 Shanna June, FIRE CONTROL ASSISTANT [address] [place] [address] Referring Family Medicine 10/19/19 Field Support Engineer Relationship Specialty Start Date End Date Wally Foley MD [address] [place] [address] PCP - General Family Medicine 01/19/22 Antelmo Davey MD [address] [place] [address] (Fax) 09/25/19 [place] [address] [place] [address] Consulting General Surgery 09/25/19 Shanna June, FIRE CONTROL ASSISTANT [address] [place] [address] Referring Family Medicine 10/19/19 Field Support Engineer Relationship Specialty Start Date End Date Wally Foley MD [address] [place] [address] PCP - General Family Medicine 01/19/22 Antelmo Davey MD [address] [place] [address] 09/25/19 [place] [address] [place] [address] Consulting General Surgery 09/25/19 Shanna June, FIRE CONTROL ASSISTANT [address] [place] [address] Referring Family Medicine 10/19/19 Field Support Engineer Relationship Specialty Start Date End Date Wally Foley MD [address] [facility] [place] [address] PCP - General Family Medicine 01/19/22 Antelmo Davey MD [address] [facility] [place] [address] (Fax) 09/25/19 [place] [address] [place] [address] Consulting General Surgery 09/25/19 Shanna June, FIRE CONTROL ASSISTANT [address] [place] [address] Referring Family Medicine 10/19/19 Field Support Engineer Relationship Specialty Start Date End Date Wally Foley MD [address] [facility] [place] [address] PCP - General Family Medicine 01/19/22 Antelmo Davey MD [address] [facility] [place] [address] (Fax) 09/25/19 [place] [address] [place] [address] Consulting General Surgery 09/25/19 Shanna June, FIRE CONTROL ASSISTANT [address] [place] [address] Referring Family Medicine 10/19/19 Field Support Engineer Relationship Specialty Start Date End Date Wally Foley MD [address] [place] [address] PCP - General Family Medicine 01/19/22 Antelmo Davey MD [address] [place] [address] (Fax) 09/25/19 [place] [address] [place] [address] Consulting General Surgery 09/25/19 Shanna June, FIRE CONTROL ASSISTANT [address] [place] [address] Referring Family Medicine 10/19/19 Field Support Engineer Relationship Specialty Start Date End Date Wally Foley MD [address] [place] [address] PCP - General Family Medicine 01/19/22 Antelmo Davey MD [address] [place] [address] (Fax) 09/25/19 [place] [address] [facility] [place] [address] Consulting General Surgery 09/25/19 Shanna June, FIRE CONTROL ASSISTANT [address] [place] [address] Referring Family Medicine 10/19/19 Field Support Engineer Relationship Specialty Start Date End Date Wally Foley MD [address] [place] [address] PCP - General Family Medicine 01/19/22 Antelmo Davey MD [address] [facility] [address] (Fax) 09/25/19 [place] [address] [place] [address] Consulting General Surgery 09/25/19 Shanna June, FIRE CONTROL ASSISTANT [address] [place] [address] Referring Family Medicine 10/19/19 Field Support Engineer Relationship Specialty Start Date End Date Wally Foley MD [address] [place] [address] PCP - General Family Medicine 01/19/22 Antelmo Davey MD [address] [facility] [place] [address] (Fax) 09/25/19 [place] [address] [facility] [place] [address] Consulting General Surgery 09/25/19 Shanna June, FIRE CONTROL ASSISTANT [address] [place] [address] Referring Family Medicine 10/19/19 Field Support Engineer Relationship Specialty Start Date End Date Wally Foley MD [address] [facility] [place] [address] PCP - General Family Medicine 01/19/22 Antelmo Davey MD [address] [facility] [place] [address] (Fax) 09/25/19 [place] [address] [place] [address] Consulting General Surgery 09/25/19 Shanna June, FIRE CONTROL ASSISTANT [address] [place] [address] Referring Family Medicine 10/19/19 Field Support Engineer Relationship Specialty Start Date End Date Wally Foley MD [address] [facility] [place] [address] PCP - General Family Medicine 01/19/22 Antelmo Davey MD [address] [facility] [place] [address] (Fax) 09/25/19 [place] [address] [facility] [place] [address] Consulting General Surgery 09/25/19 Shanna June, FIRE CONTROL ASSISTANT [address] [place] [address] Referring Family Medicine 10/19/19 Field Support Engineer Relationship Specialty Start Date End Date Wally Foley MD [address] [facility] [place] [address] PCP - General Family Medicine 01/19/22 Antelmo Davey MD [address] [facility] [place] [address] (Fax) 09/25/19 [place] [address] [facility] [place] [address] Consulting General Surgery 09/25/19 Shanna June, FIRE CONTROL ASSISTANT [address] [place] [address] Referring Family Medicine 10/19/19 Field Support Engineer Relationship Specialty Start Date End Date Wally Foley MD [address] [place] [address] PCP - General Family Medicine 01/19/22 Antelmo Davey MD [address] [place] [address] 09/25/19 [place] [address] [place] [address] Consulting General Surgery 09/25/19 Shanna June, FIRE CONTROL ASSISTANT [address] [place] [address] Referring Family Medicine 10/19/19 Agustin Valentino [address] [facility] [address] [place] [address] Referring Family Medicine 05/13/22 Field Support Engineer Relationship Specialty Start Date End Date Jaquan Morrow [address] [place] [address] PCP - General 06/16/22 Antelmo Davey MD [address] [place] [address] 09/25/19 [place] [address] [place] [address] Consulting General Surgery 09/25/19 Shanna June, FIRE CONTROL ASSISTANT [address] [place] [address] Referring Family Medicine 10/19/19 Agustin Valentino [address] [facility] [address] [place] [address] Referring Family Medicine 05/13/22 Field Support Engineer Relationship Specialty Start Date End Date Linda Morrowdi [address] [place] [address] PCP - General 06/16/22 Antelmo Davey MD [address] [place] [address] (Fax) 09/25/19 [place] [address] [facility] [place] [address] Consulting General Surgery 09/25/19 Shanna June, FIRE CONTROL ASSISTANT [address] [place] [address] Referring Family Medicine 10/19/19 Agustin Valentino [address] [facility] [address] [place] [address] Referring Family Medicine 05/13/22 Field Support Engineer Relationship Specialty Start Date End Date Cristhian Jaquan [address] [place] [address] [facility] - General 06/16/22 Antelmo Davey MD [address] [place] [address] (Fax) 09/25/19 [place] [address] [place] [address] Consulting General Surgery 09/25/19 Shanna June, FIRE CONTROL ASSISTANT [address] [place] [address] Referring Family Medicine 10/19/19 Agustin Valentino [address] [place] [address] Referring Family Medicine 05/13/22 Field Support Engineer Relationship Specialty Start Date End Date CristhianJaquan hendricks [address] [place] [address] PCP - General 06/16/22 Antelmo Davey MD [address] [place] [address] (Fax) 09/25/19 [place] [address] [place] [address] Consulting General Surgery 09/25/19 Shanna June, FIRE CONTROL ASSISTANT [address] [place] [address] Referring Family Medicine 10/19/19 Agustin Valentino [address] [place] [address] Referring Family Medicine 05/13/22 Field Support Engineer Relationship Specialty Start Date End Date Jaquan Morrow [address] [place] [address] PCP - General 06/16/22 Antelmo Davey MD [address] [place] [address] (Fax) 09/25/19 [place] [address] [facility] [place] [address] Consulting General Surgery 09/25/19 Shanna June, FIRE CONTROL ASSISTANT [address] [place] [address] Referring Family Medicine 10/19/19 Agustin Valentino [address] [place] [address] Referring Family Medicine 05/13/22 Field Support Engineer Relationship Specialty Start Date End Date Jaquan Morrow [address] [place] [address] PCP - General 06/16/22 Antelmo Davey MD [address] [place] [address] (Fax) 09/25/19 [place] [address] [facility] [place] [address] Consulting General Surgery 09/25/19 Shanna June, FIRE CONTROL ASSISTANT [address] [place] [address] Referring Family Medicine 10/19/19 Agustin Valentino [address] [place] [address] Referring Family Medicine 05/13/22 Field Support Engineer Relationship Specialty Start Date End Date Jaquan Morrow [address] [place] [address] PCP - General 06/16/22 Antelmo Davey MD [address] [place] [address] (Fax) 09/25/19 [place] [address] [place] [address] Consulting General Surgery 09/25/19 Shanna June, FIRE CONTROL ASSISTANT [address] [place] [address] Referring Family Medicine 10/19/19 Agustin Valentino [address] [facility] 150 [place] [address] Referring Family Medicine 05/13/22 Field Support Engineer Relationship Specialty Start Date End Date Cristhian, Jaquan [address] [place] [address] PCP - General 06/16/22 Antelmo Davey MD [address] [place] [address] (Fax) 09/25/19 [place] [address] [place] [address] Consulting General Surgery 09/25/19 Shanna June, BETH [address] [place] [address] Referring Family Medicine 10/19/19 Agustin Valentino [address] [place] [address] [place] [address] Referring Family Medicine 05/13/22 Field Support Engineer Relationship Specialty Start Date End Date Linda Morrowdi [address] [place] [address] PCP - General 06/16/22 Antelmo Davey MD [address] [place] [address] (Fax) 09/25/19 [place] [address] [place] [address] Consulting General Surgery 09/25/19 Shanna June, BETH [address] [place] [address] Referring Family Medicine 10/19/19 Agustin Valentino [address] [facility] 150 [place] [address] Referring Family Medicine 05/13/22 Field Support Engineer Relationship Specialty Start Date End Date Jaquan Morrow [address] [place] [address] PCP - General 06/16/22 Antelmo Davey MD [address] [place] [address] (Fax) 09/25/19 [place] [address] [place] [address] Consulting General Surgery 09/25/19 Shanna June CNP [address] [place] [address] Referring Family Medicine 10/19/19 Agustin Valentino [address] [facility] 150 [place] [address] Referring Family Medicine 05/13/22 Field Support Engineer Relationship Specialty Start Date End Date Jaquan Morrow [address] [place] [address] PCP - General 06/16/22 Antelmo Davey MD [address] [place] [address] (Fax) 09/25/19 [place] [address] [place] [address] Consulting General Surgery 09/25/19 Shanna June, BETH [address] [place] [address] Referring Family Medicine 10/19/19 Agustin Valentino [address] [facility] [address] [place] [address] Referring Family Medicine 05/13/22 Field Support Engineer Relationship Specialty Start Date End Date Jaquan Morrow [address] [place] [address] PCP - General 06/16/22 Antelmo Davey MD [address] [place] [address] 09/25/19 [place] [address] [place] [address] Consulting General Surgery 09/25/19 Shanna June, BETH [address] [place] [address] Referring Family Medicine 10/19/19 Agustin Valentino [address] [facility] [place] [address] Referring Family Medicine 05/13/22 Field Support Engineer Relationship Specialty Start Date End Date Jaquan Morrow [address] [place] [address] PCP - General 06/16/22 Antelmo Davey MD [address] [place] [address] 09/25/19 [place] [address] [place] [address] Consulting General Surgery 09/25/19 Shanna June, FIRE CONTROL ASSISTANT [address] [place] [address] Referring Family Medicine 10/19/19 Agustin Valentino PA [address] [place] [address] [place] [address] Referring Family Medicine 05/13/22 Field Support Engineer Relationship Specialty Start Date End Date Jaquan Morrow [address] [place] [address] PCP - General 06/16/22 [facility] hospital[facility]mo MD [address] [facility] [place] [address] 09/25/19 [place] [address] [place] [address] Consulting General Surgery 09/25/19 Shanna June, FIRE CONTROL ASSISTANT [address] [place] [address] Referring Family Medicine 10/19/19 Agustin Valentino PA [address] [place] [address] [place] [address] Referring Family Medicine 05/13/22 Field Support Engineer Relationship Specialty Start Date End Date Wally Foley [address] [place] [address] PCP - General Specialist 07/27/21 Field Support Engineer Relationship Specialty Start Date End Date Shanna June FNP [address] [place] [address] PCP - General Nurse Practitioner - Family 01/30/20 Field Support Engineer Relationship Specialty Start Date End Date Jaquan Morrow [address] [place] [address] PCP - General 06/16/22 Antelmo Davey MD [address] [facility] [place] [address] (Fax) 09/25/19 [place] [address] [place] [address] Consulting General Surgery 09/25/19 Shanna June CNP [address] [place] [address] Referring Family Medicine 10/19/19 Agustin Valentino PA [address] [place] [address] [place] [address] Referring Family Medicine 05/13/22 Field Support Engineer Relationship Specialty Start Date End Date Jaquan Morrow [address] [place] [address] PCP - General 06/16/22 Antelmo Davey MD [address] [place] [address] 09/25/19 [place] [address] [place] [address] Consulting General Surgery 09/25/19 Shanna June, BETH [address] [place] [address] Referring Family Medicine 10/19/19 Agustin Valentino PA [address] [place] [address] [place] [address] Referring Family Medicine 05/13/22 Field Support Engineer Relationship Specialty Start Date End Date Jaquan Morrow [address] [place] [address] PCP - General 06/16/22 Antelmo Davey MD [address] [place] [address] 09/25/19 [place] [address] [place] [address] Consulting General Surgery 09/25/19 Shanna June, FIRE CONTROL ASSISTANT [address] [place] [address] Referring Family Medicine 10/19/19 Agustin Valentino PA 112 [facility] [place] [address] Referring Family Medicine 05/13/22 Field Support Engineer Relationship Specialty Start Date End Date Jaquan Morrow [address] [place] [address] PCP - General 06/16/22 Antelmo Davey MD [address] [facility] [place] [address] 09/25/19 [place] [address] [place] [address] Consulting General Surgery 09/25/19 Shanna June, BETH [address] [place] [address] Referring Family Medicine 10/19/19 Agustin Valentino PA [address] [place] [address] [place] [address] Referring Family Medicine 05/13/22 Field Support Engineer Relationship Specialty Start Date End Date Jaquan Morrow [address] [place] [address] PCP - General 06/16/22 Antelmo Davey MD [address] [place] [address] (Fax) 09/25/19 [place] [address] [place] [address] Consulting General Surgery 09/25/19 Shanna June, BETH [address] [place] [address] Referring Family Medicine 10/19/19 Agustin Valentino PA [address] [facility] 150 [place] [address] Referring Family Medicine 05/13/22 Field Support Engineer Relationship Specialty Start Date End Date Cristhian, Jaquan [address] [place] [address] PCP - General 06/16/22 Antelmo Davey MD [address] [place] [address] (Fax) 09/25/19 [place] [address] [place] [address] Consulting General Surgery 09/25/19 Shanna June CNP [address] [place] [address] Referring Family Medicine 10/19/19 Agustin Valentino PA [address] [facility] 150 [place] [address] Referring Family Medicine 05/13/22 Field Support Engineer Relationship Specialty Start Date End Date Jaquan Morrow [address] [place] [address] PCP - General 06/16/22 Antelmo Davey MD [address] [place] [address] 09/25/19 [place] [address] [place] [address] Consulting General Surgery 09/25/19 Shanna June, BETH [address] [place] [address] Referring Family Medicine 10/19/19 Agustin Valentino PA [address] [facility] 150 [place] [address] Referring Family Medicine 05/13/22 Field Support Engineer Relationship Specialty Start Date End Date Jaquan Morrow [address] [place] [address] PCP - General 06/16/22 Antelmo Davey MD [address] [place] [address] (Fax) 09/25/19 [place] [address] [address] [place] [address] Consulting General Surgery 09/25/19 Shanna June, BETH [address] [place] [address] Referring Family Medicine 10/19/19 Agustin Valentino PA [address] [facility] 150 [place] [address] Referring Family Medicine 05/13/22 Field Support Engineer Relationship Specialty Start Date End Date Jaquan Morrow [address] [place] [address] PCP - General 06/16/22 Antelmo Davey MD [address] [place] [address] 09/25/19 [place] [address] [place] [address] Consulting General Surgery 09/25/19 Shanna June CNP [address] [place] [address] Referring Family Medicine 10/19/19 Agustin Valentino PA [address] [facility] 150 [place] [address] Referring Family Medicine 05/13/22 Field Support Engineer Relationship Specialty Start Date End Date Jaquan Morrow [address] [place] [address] PCP - General 06/16/22 Antelmo Davey MD [address] [place] [address] 09/25/19 [place] [address] [place] [address] Consulting General Surgery 09/25/19 Shanna June, BETH [address] [place] [address] Referring Family Medicine 10/19/19 Agustin Valentino PA [address] [facility] [place] [address] Referring Family Medicine 05/13/22 Field Support Engineer Relationship Specialty Start Date End Date Jaquan Morrow [address] [place] [address] PCP - General 06/16/22 Antelmo Davey MD [address] [place] [address] 09/25/19 [place] [address] [place] [address] Consulting General Surgery 09/25/19 Shanna June, BETH [address] [place] [address] Referring Family Medicine 10/19/19 Agustin Valentino PA [address] [place] [address] Referring Family Medicine 05/13/22 Field Support Engineer Relationship Specialty Start Date End Date Jaquan Morrow [address] [place] [address] PCP - General 06/16/22 Antelmo Davey MD [address] [place] [address] (Fax) 09/25/19 [place] [address] [place] [address] Consulting General Surgery 09/25/19 Shanna June, FIRE CONTROL ASSISTANT [address] [place] [address] Referring Family Medicine 10/19/19 Agustin Valentino PA [address] [facility] [place] [address] Referring Family Medicine 05/13/22 Field Support Engineer Relationship Specialty Start Date End Date aJquan Morrow [address] [place] [address] PCP - General 06/16/22 Antelmo Davey MD [address] [place] [address] (Fax) 09/25/19 [place] [address] [address] [place] [address] Consulting General Surgery 09/25/19 Shanna June CNP [address] [place] [address] Referring Family Medicine 10/19/19 Agustin Valentino PA [address] [facility] [place] [address] Referring Family Medicine 05/13/22 Field Support Engineer Relationship Specialty Start Date End Date Jaquan Morrow [address] [place] [address] PCP - General 06/16/22 Antelmo Davey MD [address] [facility] [place] [address] (Fax) 09/25/19 [place] [address] [place] [address] Consulting General Surgery 09/25/19 Shanna June BETH [address] [place] [address] Referring Family Medicine 10/19/19 Agustin Valentino PA [address] [facility] 150 [place] [address] Referring Family Medicine 05/13/22 Field Support Engineer Relationship Specialty Start Date End Date Jaquan Morrow [address] [place] [address] PCP - General 06/16/22 Antelmo Davey MD [address] [place] [address] (Fax) 09/25/19 [place] [address] [place] [address] Consulting General Surgery 09/25/19 Shanna June, BETH [address] [place] [address] Referring Family Medicine 10/19/19 Agustin Valentino PA [address] [facility] 150 [place] [address] Referring Family Medicine 05/13/22 Field Support Engineer Relationship Specialty Start Date End Date Jaquan Morrow [address] [place] [address] PCP - General 06/16/22 Antelmo Davey MD [address] [place] [address] (Fax) 09/25/19 [place] [address] [place] [address] Consulting General Surgery 09/25/19 Shanna June, BETH [address] [place] [address] Referring Family Medicine 10/19/19 Agustin Valentino PA [address] [facility] 150 [place] [address] Referring Family Medicine 05/13/22 Field Support Engineer Relationship Specialty Start Date End Date Jaquan Morrow [address] [place] [address] PCP - General 06/16/22 [facility] dickson MD [address] [place] [address] 09/25/19 [place] [address] [place] [address] Consulting General Surgery 09/25/19 Shanna June, FIRE CONTROL ASSISTANT [address] [place] [address] Referring Family Medicine 10/19/19 Agustin Valentino PA [address] [facility] [place] [address] Referring Family Medicine 05/13/22 Field Support Engineer Relationship Specialty Start Date End Date Jaquan Morrow [address] [place] [address] PCP - General 06/16/22 Antelmo Davey MD [address] [place] [address] (Fax) 09/25/19 [place] [address] [place] [address] Consulting General Surgery 09/25/19 Shanna June, BETH [address] [place] [address] Referring Family Medicine 10/19/19 Agustin Valentino PA [address] [facility] [address] [place] [address] Referring Family Medicine 05/13/22 Field Support Engineer Relationship Specialty Start Date End Date Jaquan Morrow [address] [place] [address] PCP - General 06/16/22 Antelmo Davey MD [address] [place] [address] (Fax) 09/25/19 [place] [address] [place] [address] Consulting General Surgery 09/25/19 Shanna June, FIRE CONTROL ASSISTANT [address] [place] [address] Referring Family Medicine 10/19/19 Agustin Valentino, PA [address] [address] Referring Family Medicine 05/13/22 Field Support Engineer Relationship Specialty Start Date End Date Jaquan Morrow [address] [place] [address] PCP - General 06/16/22 Antelmo Davey MD [address] [place] [address] 09/25/19 [place] [address] [facility] [place] [address] Consulting General Surgery 09/25/19 Shanna June CNP [address] [place] [address] Referring Family Medicine 10/19/19 Agustin Valentino PA [address] [address] Referring Family Medicine 05/13/22 Field Support Engineer Relationship Specialty Start Date End Date Jaquan Morrow APRN.FIRE CONTROL ASSISTANT [address] [place] [address] PCP - General 06/16/22 Antelmo Davey MD [address] [place] [address] 09/25/19 [place] [address] [place] [address] Consulting General Surgery 09/25/19 Slade Shanna, FIRE CONTROL ASSISTANT [address] [place] [address] Referring Family Medicine 10/19/19 Agustin Valentino PA [address] [facility] [address] [place] [address] Referring Family Medicine 05/13/22 Field Support Engineer Relationship Specialty Start Date End Date Jaquan Morrow, PERIOPERATIVE ASSISTANT.FIRE CONTROL ASSISTANT [address] [place] [address] PCP - General 06/16/22 Antelmo Davey MD [address] [place] [address] 09/25/19 [place] [address] [place] [address] Consulting General Surgery 09/25/19 SladeShanna, FIRE CONTROL ASSISTANT [address] [place] [address] Referring Family Medicine 10/19/19 Agustin Valentino PA [address] [place] [address] [place] [address] Referring Family Medicine 05/13/22 Field Support Engineer Relationship Specialty Start Date End Date Jaquan Morrow, PERIOPERATIVE ASSISTANT.FIRE CONTROL ASSISTANT [address] [place] [address] PCP - General 06/16/22 Antelmo Davey MD [address] [place] [address] 09/25/19 [place] [address] [place] [address] Consulting General Surgery 09/25/19 Shanna June, BETH [address] [place] [address] Referring Family Medicine 10/19/19 Agustin Valentino PA [address] [place] [address] Referring Family Medicine 05/13/22 Field Support Engineer Relationship Specialty Start Date End Date Jaquan Morrow, PERIOPERATIVE ASSISTANT.FIRE CONTROL ASSISTANT [address] [place] [address] PCP - General 06/16/22 Antelmo Davey MD [address] [place] [address] 09/25/19 [place] [address] [place] [address] Consulting General Surgery 09/25/19 Shanna June, BETH [address] [place] [address] Referring Family Medicine 10/19/19 Agustin Valentino PA [address] [address] Referring Family Medicine 05/13/22 Field Support Engineer Relationship Specialty Start Date End Date Jaquan Morrow APRN.FIRE CONTROL ASSISTANT [address] [place] [address] PCP - General 06/16/22 Antelmo Davey MD [address] [place] [address] 09/25/19 [place] [address] [place] [address] Consulting General Surgery 09/25/19 Shanna June CNP [address] [place] [address] Referring Family Medicine 10/19/19 Agustin Valentino PA [address] [address] Referring Family Medicine 05/13/22 Team Status: Active Member Role Status Dates Jaquan Morrow BLEACH MACHINE OPERATOR-C Primary Care Provider Active Team Status: Inactive Member Role Status Dates Jaquan Morrow BLEACH MACHINE OPERATOR-C Primary Care Provider Active Claus Obrien DO Emergency Provider Active Roseline Mejia DO RES Active Field Support Engineer Relationship Specialty Start Date End Date Generic Provider, No Assigned PcpMD [address] [place] [address] PCP - General Family Medicine 01/02/23 Field Support Engineer Relationship Specialty Start Date End Date Generic Provider, No Assigned PcpMD [address] [place] [address] PCP - General Family Medicine 01/02/23 Team Status: Inactive Member Role Status Dates Jaquan Morrow BLEACH MACHINE OPERATOR-C Primary Care Provider Active Start: February 13, 2023 End: February 13, 2023 Claus Obrien DO Emergency Provider Active Start: February 13, 2023 End: February 13, 2023 Roseline Mejia DO RES Active Start : February 13, 2023 End: February 13, 2023 Team Status: Inactive Member Role Status Dates SIVAN MoralesC Primary Care Provider Active Start: April 06, 2023 End: April 06, 2023 Trace Lowery [facility]- Emergency Provider Active Start: April 06, 2023 End: April 06, 2023 Field Support Engineer Relationship Specialty Start Date End Date Generic Provider, No Assigned PcpMD [address] [place] [address] PCP - General Family Medicine 01/02/23 Field Support Engineer Relationship Specialty Start Date End Date Jaquan Morrow APRN.FIRE CONTROL ASSISTANT [address] [place] [address] PCP - General 06/16/22 Antelmo Davey MD [address] [place] [address] 09/25/19 [place] [address] [place] [address] Consulting General Surgery 09/25/19 Shanna June CNP [address] [place] [address] Referring Family Medicine 10/19/19 Agustin Valentino PA [address] [place] [address] [place] [address] Referring Family Medicine 05/13/22 Field Support Engineer Relationship Specialty Start Date End Date Generic Provider, No Assigned PcpMD [address] [place] [address] PCP - General Family Medicine 01/02/23 Field Support Engineer Relationship Specialty Start Date End Date Jaquan Morrow APRN.FIRE CONTROL ASSISTANT [address] [place] [address] PCP - General 06/16/22 Antelmo Davey MD [address] [place] [address] (Fax) 09/25/19 [place] [address] [place] [address] Consulting General Surgery 09/25/19 Shanna June, BETH [address] [place] [address] Referring Family Medicine 10/19/19 Agustin Valentino PA [address] [place] [address] Referring Family Medicine 05/13/22 Field Support Engineer Relationship Specialty Start Date End Date Jaquan Morrow, PERIOPERATIVE ASSISTANT.FIRE CONTROL ASSISTANT [address] [place] [address] PCP - General 06/16/22 Antelmo Davey MD [address] [place] [address] (Fax) 09/25/19 [place] [address] [place] [address] Consulting General Surgery 09/25/19 Shanna June CNP [address] [place] [address] Referring Family Medicine 10/19/19 Agustin Valentino PA [address] [facility] [address] [place] [address] Referring Family Medicine 05/13/22 Field Support Engineer Relationship Specialty Start Date End Date Jaquan Morrow, PERIOPERATIVE ASSISTANT.FIRE CONTROL ASSISTANT [address] [place] [address] PCP - General 06/16/22 Antelmo Davey MD [address] [place] [address] (Fax) 09/25/19 [place] [address] [place] [address] Consulting General Surgery 09/25/19 Shanna June, BETH [address] [place] [address] Referring Family Medicine 10/19/19 Agustin Valentino PA [address] [address] Referring Family Medicine 05/13/22 Field Support Engineer Relationship Specialty Start Date End Date Jaquan Morrow, PERIOPERATIVE ASSISTANT.FIRE CONTROL ASSISTANT [address] [place] [address] PCP - General 06/16/22 Antelmo Davey MD [address] [place] [address] (Fax) 09/25/19 [place] [address] [place] [address] Consulting General Surgery 09/25/19 Shanna June CNP [address] [place] [address] Referring Family Medicine 10/19/19 Agustin Valentino PA [address] [facility] 150 [place] [address] Referring Family Medicine 05/13/22 Field Support Engineer Relationship Specialty Start Date End Date Jaquan Morrow, PERIOPERATIVE ASSISTANT.FIRE CONTROL ASSISTANT [address] [place] [address] PCP - General 06/16/22 Antelmo Davey MD [address] [place] [address] 09/25/19 [place] [address] [place] [address] Consulting General Surgery 09/25/19 Shanna June, BETH [address] [place] [address] Referring Family Medicine 10/19/19 Agustin Valentino PA [address] [facility] [address] [place] [address] Referring Family Medicine 05/13/22 Field Support Engineer Relationship Specialty Start Date End Date Generic Provider, No Assigned PcpMD PCP - General Family Medicine 01/02/23 Field Support Engineer Relationship Specialty Start Date End Date Jaquan Morrow, PERIOPERATIVE ASSISTANT.FIRE CONTROL ASSISTANT [address] [place] [address] PCP - General 06/16/22 Antelmo Davey MD [address] [facility] [place] [address] 09/25/19 [place] [address] [address] [place] [address] Consulting General Surgery 09/25/19 Shanna June, BETH [address] [place] [address] Referring Family Medicine 10/19/19 Agustin Valentino PA [address] [place] [address] Referring Family Medicine 05/13/22 Field Support Engineer Relationship Specialty Start Date End Date Generic Provider, No [place] [address] PCP - General Tipping Machine Operator Automatic 06/29/23 Field Support Engineer Relationship Specialty Start Date End Date Generic Provider, No Assigned [facility]MD [facility]ONE [facility] [place] [address] PCP - General Tipping Machine Operator Automatic 06/29/23 Field Support Engineer Relationship Specialty Start Date End Date Jaquan Morrow, PERIOPERATIVE ASSISTANT.FIRE CONTROL ASSISTANT [address] [place] [address] PCP - General 06/16/22 Antelmo Davey MD [address] [place] [address] 09/25/19 [place] [address] [place] [address] Consulting General Surgery 09/25/19 Shanna June, BETH [address] [place] [address] Referring Family Medicine 10/19/19 Agustin Valentino PA [address] [place] [address] Referring Family Medicine 05/13/22 Field Support Engineer Relationship Specialty Start Date End Date Jaquan Morrow, PERIOPERATIVE ASSISTANT.FIRE CONTROL ASSISTANT [address] [place] [address] PCP - General 06/16/22 Antelmo Davey MD [address] [place] [address] 09/25/19 [place] [address] [place] [address] Consulting General Surgery 09/25/19 Shanna June CNP [address] [place] [address] Referring Family Medicine 10/19/19 Agustin Valentino PA [address] [address] [address] [place] [address] Referring Family Medicine 05/13/22 Field Support Engineer Relationship Specialty Start Date End Date Jaquan Morrow, PERIOPERATIVE ASSISTANT.FIRE CONTROL ASSISTANT [address] [place] [address] PCP - General 06/16/22 Antelmo Davey MD [address] [place] [address] (Fax) 09/25/19 [place] [address] [place] [address] Consulting General Surgery 09/25/19 Shanna June, BETH [address] [place] [address] Referring Family Medicine 10/19/19 Agustin Valentino PA [address] [place] [address] Referring Family Medicine 05/13/22 Field Support Engineer Relationship Specialty Start Date End Date Jaquan Morrow, PERIOPERATIVE ASSISTANT.FIRE CONTROL ASSISTANT [address] [place] [address] PCP - General 06/16/22 Antelmo Davey MD [address] [place] [address] (Fax) 09/25/19 [place] [address] [place] [address] Consulting General Surgery 09/25/19 Shanna June, BETH [address] [place] [address] Referring Family Medicine 10/19/19 Agustin Valentino PA [address] [facility] [address] [place] [address] Referring Family Medicine 05/13/22 Field Support Engineer Relationship Specialty Start Date End Date Jaquan Morrow, PERIOPERATIVE ASSISTANT.FIRE CONTROL ASSISTANT [address] [place] [address] PCP - General 06/16/22 Antelmo Davey MD [address] [place] [address] 09/25/19 [place] [address] [place] [address] Consulting General Surgery 09/25/19 Shanna June, BETH [address] [place] [address] Referring Family Medicine 10/19/19 Agustin Valentino PA [address] [address] Referring Family Medicine 05/13/22 Team Status: Inactive [...] July 17, 2023 End: July 17, 2023 Field Support Engineer Relationship Specialty Start Date End Date Jaquan Morrow, PERIOPERATIVE ASSISTANT.FIRE CONTROL ASSISTANT [address] [place] [address] PCP - General 06/16/22 Antelmo Davey MD [address] [place] [address] 09/25/19 [place] [address] [facility] [place] [address] Consulting General Surgery 09/25/19 Shanna June CNP [address] [facility] [place] [address] Referring Family Medicine 10/19/19 Agustin Valentino PA [address] [place] [address] Referring Family Medicine 05/13/22 Team Status: Inactive Member Role Status Dates Thomas Calix MD Primary Care Provider Active Start: July 31, 2023 End: July 31, 2023 Jeramy Cunningham DO Emergency Provider Active Sta rt: July 31, 2023 End: July 31, 2023 Field Support Engineer Relationship Specialty Start Date End Date Thomas Calix MD [address] [place] [address] PCP - General Family Medicine 07/30/23 Antelmo Davey MD [address] [place] [address] 09/25/19 [place] [address] [place] [address] Consulting General Surgery 09/25/19 Shanna June CNP [address] [place] [address] Referring Family Medicine 10/19/19 Agustin Valentino PA [address] [facility] [address] [place] [address] Referring Family Medicine 05/13/22 Field Support Engineer Relationship Specialty Start Date End Date Thomas Calix MD [address] [place] [address] PCP - General Family Medicine 07/30/23 Antelmo Davey MD [address] [place] [address] 09/25/19 [place] [address] [place] [address] Consulting General Surgery 09/25/19 Shanna June, BETH [address] [place] [address] Referring Family Medicine 10/19/19 Agustin Valentino PA [address] [place] [address] Referring Family Medicine 05/13/22 Field Support Engineer Relationship Specialty Start Date End Date Thomas Calix MD [address] [place] [address] PCP - General Family Medicine 07/30/23 Antelmo Davey MD [address] [place] [address] (Fax) 09/25/19 [place] [address] [place] [address] Consulting General Surgery 09/25/19 Shanna June, BETH [address] [place] [address] Referring Family Medicine 10/19/19 Agustin Valentino PA [address] [facility] [address] [place] [address] Referring Family Medicine 05/13/22 Field Support Engineer Relationship Specialty Start Date End Date Thomas Calix MD [address] [facility] [place] [address] PCP - General Family Medicine 07/30/23 Antelmo Davey MD [address] [place] [address] 09/25/19 [place] [address] [place] [address] Consulting General Surgery 09/25/19 Shanna June, BETH [address] [place] [address] Referring Family Medicine 10/19/19 Agustin Valentino PA [address] [facility] [address] [place] [address] Referring Family Medicine 05/13/22 Field Support Engineer Relationship Specialty Start Date End Date Thomas Calix MD [address] [place] [address] PCP - General Family Medicine 07/30/23 Antelmo Davey MD [address] [place] [address] (Fax) 09/25/19 [place] [address] [facility] [place] [address] Consulting General Surgery 09/25/19 Shanna June CNP [address] [place] [address] Referring Family Medicine 10/19/19 Agustin Valentino PA [address] [place] [address] Referring Family Medicine 05/13/22 Field Support Engineer Relationship Specialty Start Date End Date Thomas Calix MD [address] [place] [address] PCP - General Family Medicine 07/30/23 Antelmo Davey MD [address] [place] [address] (Fax) 09/25/19 [place] [address] [facility] [place] [address] Consulting General Surgery 09/25/19 Shanna June CNP [address] [place] [address] Referring Family Medicine 10/19/19 Agustin Valentino PA [address] [place] [address] [place] [address] Referring Family Medicine 05/13/22 Team Status: Inactive [...] August 21, 2023 End: August 21, 2023 Field Support Engineer Relationship Specialty Start Date End Thomas Calix MD [address] [place] [address] PCP - General Family Medicine 07/30/23 Antelmo Davey MD [address] [place] [address] 09/25/19 [place] [address] [place] [address] Consulting General Surgery 09/25/19 Shanna June CNP [address] [place] [address] Referring Family Medicine 10/19/19 Agustin Valentino PA [address] [facility] [address] [place] [address] Referring Family Medicine 05/13/22 Field Support Engineer Relationship Specialty Start Date End Date Thomas Calix MD [address] [facility] [place] [address] PCP - General Family Medicine 07/30/23 Antelmo Davey MD [address] [place] [address] (Fax) 09/25/19 [place] [address] [place] [address] Consulting General Surgery 09/25/19 Shanna June CNP [address] [place] [address] Referring Family Medicine 10/19/19 Agustin Valentino PA [address] [place] [address] Referring Family Medicine 05/13/22 Field Support Engineer Relationship Specialty Start Date End Date Thomas Calix MD [address] [facility] [place] [address] PCP - General Family Medicine 07/30/23 Antelmo Davey MD [address] [place] [address] (Fax) 09/25/19 [place] [address] [place] [address] Consulting General Surgery 09/25/19 Shanna June, BETH [address] [place] [address] Referring Family Medicine 10/19/19 Agustin Valentino PA [address] [address] [place] [address] Referring Family Medicine 05/13/22 Field Support Engineer Relationship Specialty Start Date End Date Thomas Calix MD [address] [place] [address] PCP - General Family Medicine 07/30/23 Antelmo Davey MD [address] [place] [address] 09/25/19 [place] [address] [place] [address] Consulting General Surgery 09/25/19 Shanna June, BETH [address] [place] [address] Referring Family Medicine 10/19/19 Agustin Valentino PA [address] [address] [place] [address] Referring Family Medicine 05/13/22 Field Support Engineer Relationship Specialty Start Date End Date Thomas Calix MD [address] [place] [address] PCP - General Family Medicine 07/30/23 Antelmo Davey MD [address] [place] [address] 09/25/19 [place] [address] [place] [address] Consulting General Surgery 09/25/19 Shanna June, BETH [address] [place] [address] Referring Family Medicine 10/19/19 Agustin Valentino PA [address] [facility] [address] [place] [address] Referring Family Medicine 05/13/22 Field Support Engineer Relationship Specialty Start Date End Date Thomas Calix MD [address] [facility] [place] [address] PCP - General Family Medicine 07/30/23 Antelmo Davey MD [address] [place] [address] 09/25/19 [place] [address] [place] [address] Consulting General Surgery 09/25/19 Shanna June, FIRE CONTROL ASSISTANT [address] [place] [address] Referring Family Medicine 10/19/19 Agustin Valentino PA [address] [facility] [address] [place] [address] Referring Family Medicine 05/13/22 Field Support Engineer Relationship Specialty Start Date End Date Thomas Calix MD [address] [place] [address] PCP - General Family Medicine 07/30/23 Antelmo Davey MD [address] [place] [address] (Fax) 09/25/19 [place] [address] [place] [address] Consulting General Surgery 09/25/19 Shanna June CNP [address] [place] [address] Referring Family Medicine 10/19/19 Agustin Valentino PA [address] [place] [address] Referring Family Medicine 05/13/22 Field Support Engineer Relationship Specialty Start Date End Date Thomas Calix MD [address] [place] [address] PCP - General Family Medicine 07/30/23 Antelmo Davey MD [address] [place] [address] (Fax) 09/25/19 [place] [address] [place] [address] Consulting General Surgery 09/25/19 Shanna June, BETH [address] [place] [address] Referring Family Medicine 10/19/19 Agustin Valentino PA [address] [facility] [address] [place] [address] Referring Family Medicine 05/13/22 Field Support Engineer Relationship Specialty Start Date End Date Thomas Calix MD [address] [place] [address] PCP - General Family Medicine 07/30/23 Antelmo Davey MD [address] [place] [address] 09/25/19 [place] [address] [place] [address] Consulting General Surgery 09/25/19 Shanna June CNP [address] [place] [address] Referring Family Medicine 10/19/19 Agustin Valentino PA [address] [facility] [address] [place] [address] Referring Family Medicine 05/13/22 Field Support Engineer Relationship Specialty Start Date End Date Thomas Calix MD [address] [place] [address] PCP - General Family Medicine 07/30/23 Antelmo Davey MD [address] [place] [address] 09/25/19 [place] [address] [place] [address] Consulting General Surgery 09/25/19 Shanna June, BETH [address] [place] [address] Referring Family Medicine 10/19/19 Agustin Valentino PA [address] [place] [address] Referring Family Medicine 05/13/22 Field Support Engineer Relationship Specialty Start Date End Date Thomas Calix MD [address] [place] [address] PCP - General Family Medicine 07/30/23 Antelmo Davey MD [address] [place] [address] 09/25/19 [place] [address] [place] [address] Consulting General Surgery 09/25/19 Shanna June, BETH [address] [place] [address] Referring Family Medicine 10/19/19 Agustin Valentino PA [address] [address] Referring Family Medicine 05/13/22 Field Support Engineer Relationship Specialty Start Date End Date Thomas Calix MD [address] [facility] [place] [address] PCP - General Family Medicine 07/30/23 Antelmo Davey MD [address] [facility] [place] [address] 09/25/19 [place] [address] [place] [address] Consulting General Surgery 09/25/19 Shanna June CNP [address] [place] [address] Referring Family Medicine 10/19/19 Agustin Valentino PA [address] [facility] 150 [place] [address] Referring Family Medicine 05/13/22 Source Comments (unrecognize d section and content) In the event this informatio n is protected by the Federal Confidentiality of Alcohol and Drug Abuse Patient Records regulations: The Federal rules restrict any use of the information to criminally investigate or prosecute any alcohol or drug abuse patient.[facility] CenterIn the event this information is protected by the Federal Confidentiality of Alcohol and Drug Abuse Patient Records regulations: The Federal rules restrict any use of the information to criminally investigate or prosecute any alcohol or drug abuse patient.[facility] CenterIn the event this information is protected by the Federal Confidentiality of Alcohol and Drug Abuse Patient Records regulations: The Federal rules restrict any use of the information to criminally investigate or prosecute any alcohol or drug abuse patient.[facility] CenterIn the event this information is protected by the Federal Confidentiality of Alcohol and Drug Abuse Patient Records regulations: The Federal rules restrict any use of the information to criminally investigate or prosecute any alcohol or drug abuse patient.[facility] CenterIn the event this information is protected by the Federal Confidentiality of Alcohol and Drug Abuse Patient Records regulations: The Federal rules restrict any use of the information to criminally investigate or prosecute any alcohol or drug abuse patient.[facility] CenterIn the event this information is protected by the Federal Confidentiality of Alcohol and Drug Abuse Patient Records regulations: The Federal rules restrict any use of the information to criminally investigate or prosecute any alcohol or drug abuse patient.[facility] the event this information is protected by the Federal Confidentiality of Alcohol and Drug Abuse Patient Records regulations: The Federal rules restrict any use of the information to criminally investigate or prosecute any alcohol or drug abuse patient.[facility] CenterIn the event this information is protected by the Federal Confidentiality of Alcohol and Drug Abuse Patient Records regulations: The Federal rules restrict any use of the information to criminally investigate or prosecute any alcohol or drug abuse patient.[facility] CenterIn the event this information is protected by the Federal Confidentiality of Alcohol and Drug Abuse Patient Records regulations: The Federal rules restrict any use of the information to criminally investigate or prosecute any alcohol or drug abuse patient.[facility] CenterIn the event this information is protected by the Federal Confidentiality of Alcohol and Drug Abuse Patient Records regulations: The Federal rules restrict any use of the information to criminally investigate or prosecute any alcohol or drug abuse patient.[facility] CenterIn the event this information is protected by the Federal Confidentiality of Alcohol and Drug Abuse Patient Records regulations: The Federal rules restrict any use of the information to criminally investigate or prosecute any alcohol or drug abuse patient.[facility] CenterIn the event this information is protected by the Federal Confidentiality of Alcohol and Drug Abuse Patient Records regulations: The Federal rules restrict any use of the information to criminally investigate or prosecute any alcohol or drug abuse patient.[facility] CenterIn the event this information is protected by the Federal Confidentiality of Alcohol and Drug Abuse Patient Records regulations: The Federal rules restrict any use of the information to criminally investigate or prosecute any alcohol or drug abuse patient.[facility] CenterIn the event this information is protected by the Federal Confidentiality of Alcohol and Drug Abuse Patient Records regulations: The Federal rules restrict any use of the information to criminally investigate or prosecute any alcohol or drug abuse patient.[facility] CenterIn the event this information is protected by the Federal Confidentiality of Alcohol and Drug Abuse Patient Records regulations: The Federal rules restrict any use of the information to criminally investigate or prosecute any alcohol or drug abuse patient.[facility] CenterIn the event this information is protected by the Federal Confidentiality of Alcohol and Drug Abuse Patient Records regulations: The Federal rules restrict any use of the information to criminally investigate or prosecute any alcohol or drug abuse patient.[facility] CenterIn the event this information is protected by the Federal Confidentiality of Alcohol and Drug Abuse Patient Records regulations: The Federal rules restrict any use of the information to criminally investigate or prosecute any alcohol or drug abuse patient.[facility] CenterIn the event this information is protected by the Federal Confidentiality of Alcohol and Drug Abuse Patient Records regulations: The Federal rules restrict any use of the information to criminally investigate or prosecute any alcohol or drug abuse patient.[facility] CenterIn the event this information is protected by the Federal Confidentiality of Alcohol and Drug Abuse Patient Records regulations: The Federal rules restrict any use of the information to criminally investigate or prosecute any alcohol or drug abuse patient.[facility] CenterIn the event this information is protected by the Federal Confidentiality of Alcohol and Drug Abuse Patient Records regulations: The Federal rules restrict any use of the information to criminally investigate or prosecute any alcohol or drug abuse patient.[facility] CenterIn the event this information is protected by the Federal Confidentiality of Alcohol and Drug Abuse Patient Records regulations: The Federal rules restrict any use of the information to criminally investigate or prosecute any alcohol or drug abuse patient.[facility] CenterIn the event this information is protected by the Federal Confidentiality of Alcohol and Drug Abuse Patient Records regulations: The Federal rules restrict any use of the information to criminally investigate or prosecute any alcohol or drug abuse patient.[facility] CenterIn the event this information is protected by the Federal Confidentiality of Alcohol and Drug Abuse Patient Records regulations: The Federal rules restrict any use of the information to criminally investigate or prosecute any alcohol or drug abuse patient.[facility] CenterIn the event this information is protected by the Federal Confidentiality of Alcohol and Drug Abuse Patient Records regulations: The Federal rules restrict any use of the information to criminally investigate or prosecute any alcohol or drug abuse patient.[facility] CenterIn the event this information is protected by the Federal Confidentiality of Alcohol and Drug Abuse Patient Records regulations: The Federal rules restrict any use of the information to criminally investigate or prosecute any alcohol or drug abuse patient.[facility] CenterIn the event this information is protected by the Federal Confidentiality of Alcohol and Drug Abuse Patient Records regulations: The Federal rules restrict any use of the information to criminally investigate or prosecute any alcohol or drug abuse patient.[facility] CenterIn the event this information is protected by the Federal Confidentiality of Alcohol and Drug Abuse Patient Records regulations: The Federal rules restrict any use of the information to criminally investigate or prosecute any alcohol or drug abuse patient.[facility] CenterIn the event this information is protected by the Federal Confidentiality of Alcohol and Drug Abuse Patient Records regulations: The Federal rules restrict any use of the information to criminally investigate or prosecute any alcohol or drug abuse patient.[facility] CenterIn the event this information is protected by the Federal Confidentiality of Alcohol and Drug Abuse Patient Records regulations: The Federal rules restrict any use of the information to criminally investigate or prosecute any alcohol or drug abuse patient.[facility] CenterIn the event this information is protected by the Federal Confidentiality of Alcohol and Drug Abuse Patient Records regulations: The Federal rules restrict any use of the information to criminally investigate or prosecute any alcohol or drug abuse patient.[facility] CenterIn the event this information is protected by the Federal Confidentiality of Alcohol and Drug Abuse Patient Records regulations: The Federal rules restrict any use of the information to criminally investigate or prosecute any alcohol or drug abuse patient.[facility] CenterIn the event this information is protected by the Federal Confidentiality of Alcohol and Drug Abuse Patient Records regulations: The Federal rules restrict any use of the information to criminally investigate or prosecute any alcohol or drug abuse patient.[facility] CenterIn the event this information is protected by the Federal Confidentiality of Alcohol and Drug Abuse Patient Records regulations: The Federal rules restrict any use of the information to criminally investigate or prosecute any alcohol or drug abuse patient.[facility] CenterIn the event this information is protected by the Federal Confidentiality of Alcohol and Drug Abuse Patient Records regulations: The Federal rules restrict any use of the information to criminally investigate or prosecute any alcohol or drug abuse patient.[facility] CenterIn the event this information is protected by the Federal Confidentiality of Alcohol and Drug Abuse Patient Records regulations: The Federal rules restrict any use of the information to criminally investigate or prosecute any alcohol or drug abuse patient.[facility] CenterIn the event this information is protected by the Federal Confidentiality of Alcohol and Drug Abuse Patient Records regulations: The Federal rules restrict any use of the information to criminally investigate or prosecute any alcohol or drug abuse patient.[facility] CenterIn the event this information is protected by the Federal Confidentiality of Alcohol and Drug Abuse Patient Records regulations: The Federal rules restrict any use of the information to criminally investigate or prosecute any alcohol or drug abuse patient.[facility] CenterIn the event this information is protected by the Federal Confidentiality of Alcohol and Drug Abuse Patient Records regulations: The Federal rules restrict any use of the information to criminally investigate or prosecute any alcohol or drug abuse patient.[facility] CenterIn the event this information is protected by the Federal Confidentiality of Alcohol and Drug Abuse Patient Records regulations: The Federal rules restrict any use of the information to criminally investigate or prosecute any alcohol or drug abuse patient.[facility] CenterIn the event this information is protected by the Federal Confidentiality of Alcohol and Drug Abuse Patient Records regulations: The Federal rules restrict any use of the information to criminally investigate or prosecute any alcohol or drug abuse patient.[facility] CenterIn the event this information is protected by the Federal Confidentiality of Alcohol and Drug Abuse Patient Records regulations: The Federal rules restrict any use of the information to criminally investigate or prosecute any alcohol or drug abuse patient.[facility]In the event this information is protected by the Federal Confidentiality of Alcohol and Drug Abuse Patient Records regulations: The Federal rules restrict any use of the information to criminally investigate or prosecute any alcohol or drug abuse patient.[facility] CenterIn the event this information is protected by the Federal Confidentiality of Alcohol and Drug Abuse Patient Records regulations: The Federal rules restrict any use of the information to criminally investigate or prosecute any alcohol or drug abuse patient.[facility] CenterIn the event this information is protected by the Federal Confidentiality of Alcohol and Drug Abuse Patient Records regulations: The Federal rules restrict any use of the information to criminally investigate or prosecute any alcohol or drug abuse patient.[facility] CenterIn the event this information is protected by the Federal Confidentiality of Alcohol and Drug Abuse Patient Records regulations: The Federal rules restrict any use of the information to criminally investigate or prosecute any alcohol or drug abuse patient.[facility] CenterIn the event this information is protected by the Federal Confidentiality of Alcohol and Drug Abuse Patient Records regulations: The Federal rules restrict any use of the information to criminally investigate or prosecute any alcohol or drug abuse patient.[facility] CenterIn the event this information is protected by the Federal Confidentiality of Alcohol and Drug Abuse Patient Records regulations: The Federal rules restrict any use of the information to criminally investigate or prosecute any alcohol or drug abuse patient.[facility] CenterIn the event this information is protected by the Federal Confidentiality of Alcohol and Drug Abuse Patient Records regulations: The Federal rules restrict any use of the information to criminally investigate or prosecute any alcohol or drug abuse patient.[facility] CenterIn the event this information is protected by the Federal Confidentiality of Alcohol and Drug Abuse Patient Records regulations: The Federal rules restrict any use of the information to criminally investigate or prosecute any alcohol or drug abuse patient.[facility] CenterIn the event this information is protected by the Federal Confidentiality of Alcohol and Drug Abuse Patient Records regulations: The Federal rules restrict any use of the information to criminally investigate or prosecute any alcohol or drug abuse patient.[facility] CenterIn the event this information is protected by the Federal Confidentiality of Alcohol and Drug Abuse Patient Records regulations: The Federal rules restrict any use of the information to criminally investigate or prosecute any alcohol or drug abuse patient.[facility] CenterIn the event this information is protected by the Federal Confidentiality of Alcohol and Drug Abuse Patient Records regulations: The Federal rules restrict any use of the information to criminally investigate or prosecute any alcohol or drug abuse patient.[facility] CenterIn the event this information is protected by the Federal Confidentiality of Alcohol and Drug Abuse Patient Records regulations: The Federal rules restrict any use of the information to criminally investigate or prosecute any alcohol or drug abuse patient.[facility] CenterIn the event this information is protected by the Federal Confidentiality of Alcohol and Drug Abuse Patient Records regulations: The Federal rules restrict any use of the information to criminally investigate or prosecute any alcohol or drug abuse patient.[facility] CenterIn the event this information is protected by the Federal Confidentiality of Alcohol and Drug Abuse Patient Records regulations: The Federal rules restrict any use of the information to criminally investigate or prosecute any alcohol or drug abuse patient.[facility] CenterIn the event this information is protected by the Federal Confidentiality of Alcohol and Drug Abuse Patient Records regulations: The Federal rules restrict any use of the information to criminally investigate or prosecute any alcohol or drug abuse patient.[facility] the event this information is protected by the Federal Confidentiality of Alcohol and Drug Abuse Patient Records regulations: The Federal rules restrict any use of the information to criminally investigate or prosecute any alcohol or drug abuse patient.[facility] CenterIn the event this information is protected by the Federal Confidentiality of Alcohol and Drug Abuse Patient Records regulations: The Federal rules restrict any use of the information to criminally investigate or prosecute any alcohol or drug abuse patient.[facility] CenterIn the event this information is protected by the Federal Confidentiality of Alcohol and Drug Abuse Patient Records regulations: The Federal rules restrict any use of the information to criminally investigate or prosecute any alcohol or drug abuse patient.[facility] CenterIn the event this information is protected by the Federal Confidentiality of Alcohol and Drug Abuse Patient Records regulations: The Federal rules restrict any use of the information to criminally investigate or prosecute any alcohol or drug abuse patient.[facility] CenterIn the event this information is protected by the Federal Confidentiality of Alcohol and Drug Abuse Patient Records regulations: The Federal rules restrict any use of the information to criminally investigate or prosecute any alcohol or drug abuse patient.[facility] CenterIn the event this information is protected by the Federal Confidentiality of Alcohol and Drug Abuse Patient Records regulations: The Federal rules restrict any use of the information to criminally investigate or prosecute any alcohol or drug abuse patient.[facility] CenterIn the event this information is protected by the Federal Confidentiality of Alcohol and Drug Abuse Patient Records regulations: The Federal rules restrict any use of the information to criminally investigate or prosecute any alcohol or drug abuse patient.[facility]In the event this information is protected by the Federal Confidentiality of Alcohol and Drug Abuse Patient Records regulations: The Federal rules restrict any use of the information to criminally investigate or prosecute any alcohol or drug abuse patient.[facility] CenterIn the event this information is protected by the Federal Confidentiality of Alcohol and Drug Abuse Patient Records regulations: The Federal rules restrict any use of the information to criminally investigate or prosecute any alcohol or drug abuse patient.[facility] CenterIn the event this information is protected by the Federal Confidentiality of Alcohol and Drug Abuse Patient Records regulations: The Federal rules restrict any use of the information to criminally investigate or prosecute any alcohol or drug abuse patient.[facility] CenterIn the event this information is protected by the Federal Confidentiality of Alcohol and Drug Abuse Patient Records regulations: The Federal rules restrict any use of the information to criminally investigate or prosecute any alcohol or drug abuse patient.[facility] CenterIn the event this information is protected by the Federal Confidentiality of Alcohol and Drug Abuse Patient Records regulations: The Federal rules restrict any use of the information to criminally investigate or prosecute any alcohol or drug abuse patient.[facility] CenterIn the event this information is protected by the Federal Confidentiality of Alcohol and Drug Abuse Patient Records regulations: The Federal rules restrict any use of the information to criminally investigate or prosecute any alcohol or drug abuse patient.[facility] CenterIn the event this information is protected by the Federal Confidentiality of Alcohol and Drug Abuse Patient Records regulations: The Federal rules restrict any use of the information to criminally investigate or prosecute any alcohol or drug abuse patient.[facility] CenterIn the event this information is protected by the Federal Confidentiality of Alcohol and Drug Abuse Patient Records regulations: The Federal rules restrict any use of the information to criminally investigate or prosecute any alcohol or drug abuse patient.[facility] CenterIn the event this information is protected by the Federal Confidentiality of Alcohol and Drug Abuse Patient Records regulations: The Federal rules restrict any use of the information to criminally investigate or prosecute any alcohol or drug abuse patient.[facility] CenterIn the event this information is protected by the Federal Confidentiality of Alcohol and Drug Abuse Patient Records regulations: The Federal rules restrict any use of the information to criminally investigate or prosecute any alcohol or drug abuse patient.[facility]In the event this information is protected by the Federal Confidentiality of Alcohol and Drug Abuse Patient Records regulations: The Federal rules restrict any use of the information to criminally investigate or prosecute any alcohol or drug abuse patient.[facility] CenterIn the event this information is protected by the Federal Confidentiality of Alcohol and Drug Abuse Patient Records regulations: The Federal rules restrict any use of the information to criminally investigate or prosecute any alcohol or drug abuse patient.[facility]In the event this information is protected by the Federal Confidentiality of Alcohol and Drug Abuse Patient Records regulations: The Federal rules restrict any use of the information to criminally investigate or prosecute any alcohol or drug abuse patient.[facility]In the event this information is protected by the Federal Confidentiality of Alcohol and Drug Abuse Patient Records regulations: The Federal rules restrict any use of the information to criminally investigate or prosecute any alcohol or drug abuse patient.[facility]In the event this information is protected by the Federal Confidentiality of Alcohol and Drug Abuse Patient Records regulations: The Federal rules restrict any use of the information to criminally investigate or prosecute any alcohol or drug abuse patient.[facility]In the event this information is protected by the Federal Confidentiality of Alcohol and Drug Abuse Patient Records regulations: The Federal rules restrict any use of the information to criminally investigate or prosecute any alcohol or drug abuse patient.[facility]In the event this information is protected by the Federal Confidentiality of Alcohol and Drug Abuse Patient Records regulations: The Federal rules restrict any use of the information to criminally investigate or prosecute any alcohol or drug abuse patient.[facility]In the event this information is protected by the Federal Confidentiality of Alcohol and Drug Abuse Patient Records regulations: The Federal rules restrict any use of the information to criminally investigate or prosecute any alcohol or drug abuse patient.[facility]In the event this information is protected by the Federal Confidentiality of Alcohol and Drug Abuse Patient Records regulations: The Federal rules restrict any use of the information to criminally investigate or prosecute any alcohol or drug abuse patient.[facility] CenterIn the event this information is protected by the Federal Confidentiality of Alcohol and Drug Abuse Patient Records regulations: The Federal rules restrict any use of the information to criminally investigate or prosecute any alcohol or drug abuse patient.[facility]In the event this information is protected by the Federal Confidentiality of Alcohol and Drug Abuse Patient Records regulations: The Federal rules restrict any use of the information to criminally investigate or prosecute any alcohol or drug abuse patient.[facility] CenterIn the event this information is protected by the Federal Confidentiality of Alcohol and Drug Abuse Patient Records regulations: The Federal rules restrict any use of the information to criminally investigate or prosecute any alcohol or drug abuse patient.[facility] CenterIn the event this information is protected by the Federal Confidentiality of Alcohol and Drug Abuse Patient Records regulations: The Federal rules restrict any use of the information to criminally investigate or prosecute any alcohol or drug abuse patient.[facility] CenterIn the event this information is protected by the Federal Confidentiality of Alcohol and Drug Abuse Patient Records regulations: The Federal rules restrict any use of the information to criminally investigate or prosecute any alcohol or drug abuse patient.[facility]In the event this information is protected by the Federal Confidentiality of Alcohol and Drug Abuse Patient Records regulations: The Federal rules restrict any use of the information to criminally investigate or prosecute any alcohol or drug abuse patient.[facility]In the event this information is protected by the Federal Confidentiality of Alcohol and Drug Abuse Patient Records regulations: The Federal rules restrict any use of the information to criminally investigate or prosecute any alcohol or drug abuse patient.[facility]In the event this information is protected by the Federal Confidentiality of Alcohol and Drug Abuse Patient Records regulations: The Federal rules restrict any use of the information to criminally investigate or prosecute any alcohol or drug abuse patient.[facility]In the event this information is protected by the Federal Confidentiality of Alcohol and Drug Abuse Patient Records regulations: The Federal rules restrict any use of the information to criminally investigate or prosecute any alcohol or drug abuse patient.[facility]In the event this information is protected by the Federal Confidentiality of Alcohol and Drug Abuse Patient Records regulations: The Federal rules restrict any use of the information to criminally investigate or prosecute any alcohol or drug abuse patient.[facility]In the event this information is protected by the Federal Confidentiality of Alcohol and Drug Abuse Patient Records regulations: The Federal rules restrict any use of the information to criminally investigate or prosecute any alcohol or drug abuse patient.[facility]In the event this information is protected by the Federal Confidentiality of Alcohol and Drug Abuse Patient Records regulations: The Federal rules restrict any use of the information to criminally investigate or prosecute any alcohol or drug abuse patient.[facility]In the event this information is protected by the Federal Confidentiality of Alcohol and Drug Abuse Patient Records regulations: The Federal rules restrict any use of the information to criminally investigate or prosecute any alcohol or drug abuse patient.[facility]In the event this information is protected by the Federal Confidentiality of Alcohol and Drug Abuse Patient Records regulations: The Federal rules restrict any use of the information to criminally investigate or prosecute any alcohol or drug abuse patient.[facility]In the event this information is protected by the Federal Confidentiality of Alcohol and Drug Abuse Patient Records regulations: The Federal rules restrict any use of the information to criminally investigate or prosecute any alcohol or drug abuse patient.[facility]In the event this information is protected by the Federal Confidentiality of Alcohol and Drug Abuse Patient Records regulations: The Federal rules restrict any use of the information to criminally investigate or prosecute any alcohol or drug abuse patient.[facility]In the event this information is protected by the Federal Confidentiality of Alcohol and Drug Abuse Patient Records regulations: The Federal rules restrict any use of the information to criminally investigate or prosecute any alcohol or drug abuse patient.[facility]In the event this information is protected by the Federal Confidentiality of Alcohol and Drug Abuse Patient Records regulations: The Federal rules restrict any use of the information to criminally investigate or prosecute any alcohol or drug abuse patient.[facility]In the event this information is protected by the Federal Confidentiality of Alcohol and Drug Abuse Patient Records regulations: The Federal rules restrict any use of the information to criminally investigate or prosecute any alcohol or drug abuse patient.[facility]In the event this information is protected by the Federal Confidentiality of Alcohol and Drug Abuse Patient Records regulations: The Federal rules restrict any use of the information to criminally investigate or prosecute any alcohol or drug abuse patient.[facility]In the event this information is protected by the Federal Confidentiality of Alcohol and Drug Abuse Patient Records regulations: The Federal rules restrict any use of the information to criminally investigate or prosecute any alcohol or drug abuse patient.[facility]In the event this information is protected by the Federal Confidentiality of Alcohol and Drug Abuse Patient Records regulations: The Federal rules restrict any use of the information to criminally investigate or prosecute any alcohol or drug abuse patient.[facility]In the event this information is protected by the Federal Confidentiality of Alcohol and Drug Abuse Patient Records regulations: The Federal rules restrict any use of the information to criminally investigate or prosecute any alcohol or drug abuse patient.[facility]In the event this information is protected by the Federal Confidentiality of Alcohol and Drug Abuse Patient Records regulations: The Federal rules restrict any use of the information to criminally investigate or prosecute any alcohol or drug abuse patient.[facility] the event this information is protected by the Federal Confidentiality of Alcohol and Drug Abuse Patient Records regulations: The Federal rules restrict any use of the information to criminally investigate or prosecute any alcohol or drug abuse patient.[facility]In the event this information is protected by the Federal Confidentiality of Alcohol and Drug Abuse Patient Records regulations: The Federal rules restrict any use of the information to criminally investigate or prosecute any alcohol or drug abuse patient.[facility]In the event this information is protected by the Federal Confidentiality of Alcohol and Drug Abuse Patient Records regulations: The Federal rules restrict any use of the information to criminally investigate or prosecute any alcohol or drug abuse patient.[facility]In the event this information is protected by the Federal Confidentiality of Alcohol and Drug Abuse Patient Records regulations: The Federal rules restrict any use of the information to criminally investigate or prosecute any alcohol or drug abuse patient.[facility]In the event this information is protected by the Federal Confidentiality of Alcohol and Drug Abuse Patient Records regulations: The Federal rules restrict any use of the information to criminally investigate or prosecute any alcohol or drug abuse patient.[facility]In the event this information is protected by the Federal Confidentiality of Alcohol and Drug Abuse Patient Records regulations: The Federal rules restrict any use of the information to criminally investigate or prosecute any alcohol or drug abuse patient.[facility]In the event this information is protected by the Federal Confidentiality of Alcohol and Drug Abuse Patient Records regulations: The Federal rules restrict any use of the information to criminally investigate or prosecute any alcohol or drug abuse patient.[facility]In the event this information is protected by the Federal Confidentiality of Alcohol and Drug Abuse Patient Records regulations: The Federal rules restrict any use of the information to criminally investigate or prosecute any alcohol or drug abuse patient.[facility]In the event this information is protected by the Federal Confidentiality of Alcohol and Drug Abuse Patient Records regulations: The Federal rules restrict any use of the information to criminally investigate or prosecute any alcohol or drug abuse patient.[facility]In the event this information is protected by the Federal Confidentiality of Alcohol and Drug Abuse Patient Records regulations: The Federal rules restrict any use of the information to criminally investigate or prosecute any alcohol or drug abuse patient.[facility]In the event this information is protected by the Federal Confidentiality of Alcohol and Drug Abuse Patient Records regulations: The Federal rules restrict any use of the information to criminally investigate or prosecute any alcohol or drug abuse patient.[facility] CenterIn the event this information is protected by the Federal Confidentiality of Alcohol and Drug Abuse Patient Records regulations: The Federal rules restrict any use of the information to criminally investigate or prosecute any alcohol or drug abuse patient.[facility] CenterIn the event this information is protected by the Federal Confidentiality of Alcohol and Drug Abuse Patient Records regulations: The Federal rules restrict any use of the information to criminally investigate or prosecute any alcohol or drug abuse patient.[facility]In the event this information is protected by the Federal Confidentiality of Alcohol and Drug Abuse Patient Records regulations: The Federal rules restrict any use of the information to criminally investigate or prosecute any alcohol or drug abuse patient.[facility] CenterIn the event this information is protected by the Federal Confidentiality of Alcohol and Drug Abuse Patient Records regulations: The Federal rules restrict any use of the information to criminally investigate or prosecute any alcohol or drug abuse patient.[facility] CenterIn the event this information is protected by the Federal Confidentiality of Alcohol and Drug Abuse Patient Records regulations: The Federal rules restrict any use of the information to criminally investigate or prosecute any alcohol or drug abuse patient.[facility] CenterIn the event this information is protected by the Federal Confidentiality of Alcohol and Drug Abuse Patient Records regulations: The Federal rules restrict any use of the information to criminally investigate or prosecute any alcohol or drug abuse patient.[facility] CenterIn the event this information is protected by the Federal Confidentiality of Alcohol and Drug Abuse Patient Records regulations: The Federal rules restrict any use of the information to criminally investigate or prosecute any alcohol or drug abuse patient.[facility]In the event this information is protected by the Federal Confidentiality of Alcohol and Drug Abuse Patient Records regulations: The Federal rules restrict any use of the information to criminally investigate or prosecute any alcohol or drug abuse patient.[facility] CenterIn the event this information is protected by the Federal Confidentiality of Alcohol and Drug Abuse Patient Records regulations: The Federal rules restrict any use of the information to criminally investigate or prosecute any alcohol or drug abuse patient.[facility] CenterIn the event this information is protected by the Federal Confidentiality of Alcohol and Drug Abuse Patient Records regulations: The Federal rules restrict any use of the information to criminally investigate or prosecute any alcohol or drug abuse patient.[facility] CenterIn the event this information is protected by the Federal Confidentiality of Alcohol and Drug Abuse Patient Records regulations: The Federal rules restrict any use of the information to criminally investigate or prosecute any alcohol or drug abuse patient.[facility] CenterIn the event this information is protected by the Federal Confidentiality of Alcohol and Drug Abuse Patient Records regulations: The Federal rules restrict any use of the information to criminally investigate or prosecute any alcohol or drug abuse patient.[facility] CenterIn the event this information is protected by the Federal Confidentiality of Alcohol and Drug Abuse Patient Records regulations: The Federal rules restrict any use of the information to criminally investigate or prosecute any alcohol or drug abuse patient.[facility] CenterIn the event this information is protected by the Federal Confidentiality of Alcohol and Drug Abuse Patient Records regulations: The Federal rules restrict any use of the information to criminally investigate or prosecute any alcohol or drug abuse patient.[facility] CenterIn the event this information is protected by the Federal Confidentiality of Alcohol and Drug Abuse Patient Records regulations: The Federal rules restrict any use of the information to criminally investigate or prosecute any alcohol or drug abuse patient.[facility] CenterIn the event this information is protected by the Federal Confidentiality of Alcohol and Drug Abuse Patient Records regulations: The Federal rules restrict any use of the information to criminally investigate or prosecute any alcohol or drug abuse patient.[facility] CenterIn the event this information is protected by the Federal Confidentiality of Alcohol and Drug Abuse Patient Records regulations: The Federal rules restrict any use of the information to criminally investigate or prosecute any alcohol or drug abuse patient.[facility] CenterIn the event this information is protected by the Federal Confidentiality of Alcohol and Drug Abuse Patient Records regulations: The Federal rules restrict any use of the information to criminally investigate or prosecute any alcohol or drug abuse patient.[facility] CenterIn the event this information is protected by the Federal Confidentiality of Alcohol and Drug Abuse Patient Records regulations: The Federal rules restrict any use of the information to criminally investigate or prosecute any alcohol or drug abuse patient.[facility] CenterIn the event this information is protected by the Federal Confidentiality of Alcohol and Drug Abuse Patient Records regulations: The Federal rules restrict any use of the information to criminally investigate or prosecute any alcohol or drug abuse patient.[facility] CenterIn the event this information is protected by the Federal Confidentiality of Alcohol and Drug Abuse Patient Records regulations: The Federal rules restrict any use of the information to criminally investigate or prosecute any alcohol or drug abuse patient.[facility] Ordered Prescriptions (unrec ognized section [...] BE BASED ON THE PRIMARY CLINICAL RECORDS. [facility]. provides no warranty or guarantee of the accuracy or completeness of information in this document.
[2023-10-09 11:49] LABS: Alanine Aminotransferase 25 U/L (14-59); Albumin Globulin Ratio 1.2; Albumin Level 3.5 g/dL (3.4-5.0); Alkaline Phosphatase 79 U/L (46-116); Aspartate Amino Transferase 27 U/L (15-37); BUN Creatinine Ratio 11.1; Bilirubin Total 0.3 mg/dL (0.2-1.0); Calcium 8.3 mg/dL (8.5-10.1); Carbon Dioxide 26.5 mmol/L (21.0-32.0); Chloride 102 mmol/L (98-107); Estimated GFR (African America >60 (>=60); Estimated GFR (Non-African Ame >60 (>=60); Glucose 123 mg/dL (74-106); Magnesium 1.8 mg/dL (1.8-2.4); Phosphorus 2.4 mg/dL (2.6-4.7); Potassium 3.5 mmol/L (3.5-5.1); Sodium 136 mmol/L (136-145); Total Protein 6.5 g/dL (6.4-8.2); Triglycerides 132 mg/dL (<=150)
[2023-10-09 12:12] LABS: Basophils Percent Auto 0.4 % (0.2-2.0); Eosinophils Percent Auto 0.2 % (0.9-7.0); Hematocrit 32.6 % (36.0-48.0); Hemoglobin 10.3 g/dL (12.0-16.0); Immature Granulocytes Abs Auto 0.02 10^3/uL (0.00-0.03); Immature Granulocytes Pct Auto 0.4 % (0.0-0.5); Lymphocytes Absolute Auto 0.9 10^3/uL (1.2-3.8); Lymphocytes Percent Auto 18.1 % (20.5-60.0); Mean Corpuscular HGB Conc 31.6 g/dL (29.9-35.2); Mean Corpuscular Hemoglobin 27.2 pg (26.7-34.0); Mean Corpuscular Volume 86.2 fL (81.0-99.0); Mean Platelet Volume 11.4 fL (9.5-13.5); Monocytes Absolute Auto 0.2 10^3/uL (0.3-0.8); Monocytes Percent Auto 3.5 % (1.7-12.0); Neutrophils Absolute Auto 3.8 10^3/uL (1.4-6.5); Neutrophils Percent Auto 77.4 % (43.0-75.0); Platelet Count 230 10^3/uL (150-450); Red Blood Count 3.78 10^6/uL (4.20-5.40); Red Cell Distribution Width 14.7 % (11.0-15.0); White Blood Count 4.9 10^3/uL (4.0-11.0)
== END 2023-10-09 10:18 | disposition home or self-care (01) ==
LOC: LAB 10:17
PROVIDERS: PCP Family Medicine; Visit Provider Family Medicine
DX: E44.0 Moderate protein-calorie malnutrition (principal); R11.2 Nausea with vomiting, unspecified
CPT/HCPCS: 36415; 80053; 83735; 84100; 84478; 85025

== ENCOUNTER 2023-10-22 12:18 | Outpatient (REF) | payer OTHER, SELFPAY ==
[2023-10-22 13:09] LABS: Alanine Aminotransferase 54 U/L (14-59); Albumin Globulin Ratio 1.1; Albumin Level 3.4 g/dL (3.4-5.0); Alkaline Phosphatase 73 U/L (46-116); Aspartate Amino Transferase 43 U/L (15-37); BUN Creatinine Ratio 8.3; Bilirubin Total 0.3 mg/dL (0.2-1.0); Calcium 8.4 mg/dL (8.5-10.1); Chloride 105 mmol/L (98-107); Estimated GFR (African America >60 (>=60); Estimated GFR (Non-African Ame >60 (>=60); Globulin 3.1 g/dL; Glucose 153 mg/dL (74-106); Magnesium 1.5 mg/dL (1.8-2.4); Phosphorus 2.4 mg/dL (2.6-4.7); Potassium 3.6 mmol/L (3.5-5.1); Sodium 140 mmol/L (136-145); Total Protein 6.5 g/dL (6.4-8.2); Triglycerides 123 mg/dL (<=150)
[2023-10-22 13:13] LABS: Anion Gap 12.2; Carbon Dioxide 26.4 mmol/L (21.0-32.0)
[2023-10-22 16:37] LABS: Basophils Percent Auto 0.3 % (0.2-2.0); Hemoglobin 10.5 g/dL (12.0-16.0); Immature Granulocytes Abs Auto 0.02 10^3/uL (0.00-0.03); Immature Granulocytes Pct Auto 0.3 % (0.0-0.5); Lymphocytes Percent Auto 16.4 % (20.5-60.0); Mean Corpuscular HGB Conc 31.8 g/dL (29.9-35.2); Mean Corpuscular Hemoglobin 27.1 pg (26.7-34.0); Mean Corpuscular Volume 85.3 fL (81.0-99.0); Monocytes Absolute Auto 0.2 10^3/uL (0.3-0.8); Monocytes Percent Auto 2.9 % (1.7-12.0); Neutrophils Absolute Auto 4.7 10^3/uL (1.4-6.5); Neutrophils Percent Auto 80.1 % (43.0-75.0); Platelet Count 380 10^3/uL (150-450); Red Blood Count 3.87 10^6/uL (4.20-5.40); Red Cell Distribution Width 14.6 % (11.0-15.0); White Blood Count 5.9 10^3/uL (4.0-11.0)
== END 2023-10-22 12:19 | disposition home or self-care (01) ==
LOC: LAB 12:18
PROVIDERS: PCP Family Medicine; Visit Provider Family Medicine
DX: E44.0 Moderate protein-calorie malnutrition (principal); R11.2 Nausea with vomiting, unspecified
CPT/HCPCS: 36415; 80053; 83735; 84100; 84478; 85025

== ENCOUNTER 2023-10-28 10:48 | Outpatient (REF) | payer OTHER, SELFPAY ==
[2023-10-28 12:00] LABS: Basophils Percent Auto 0.6 % (0.2-2.0); Eosinophils Percent Auto 0.2 % (0.9-7.0); Hematocrit 33.5 % (36.0-48.0); Hemoglobin 10.5 g/dL (12.0-16.0); Immature Granulocytes Abs Auto 0.01 10^3/uL (0.00-0.03); Immature Granulocytes Pct Auto 0.2 % (0.0-0.5); Lymphocytes Absolute Auto 0.8 10^3/uL (1.2-3.8); Lymphocytes Percent Auto 15.5 % (20.5-60.0); Mean Corpuscular HGB Conc 31.3 g/dL (29.9-35.2); Mean Corpuscular Hemoglobin 26.5 pg (26.7-34.0); Mean Corpuscular Volume 84.6 fL (81.0-99.0); Mean Platelet Volume 11.4 fL (9.5-13.5); Monocytes Absolute Auto 0.2 10^3/uL (0.3-0.8); Monocytes Percent Auto 2.9 % (1.7-12.0); Neutrophils Absolute Auto 4.1 10^3/uL (1.4-6.5); Neutrophils Percent Auto 80.6 % (43.0-75.0); Platelet Count 317 10^3/uL (150-450); Red Blood Count 3.96 10^6/uL (4.20-5.40); Red Cell Distribution Width 14.5 % (11.0-15.0); White Blood Count 5.1 10^3/uL (4.0-11.0)
[2023-10-28 12:45] LABS: Alanine Aminotransferase 37 U/L (14-59); Albumin Globulin Ratio 1.2; Albumin Level 3.5 g/dL (3.4-5.0); Alkaline Phosphatase 64 U/L (46-116); Anion Gap 6.2; Aspartate Amino Transferase 29 U/L (15-37); BUN Creatinine Ratio 20.3; Bilirubin Total 0.4 mg/dL (0.2-1.0); C Reactive Protein <0.50 mg/dL (<=0.50); Calcium 8.4 mg/dL (8.5-10.1); Chloride 102 mmol/L (98-107); Estimated GFR (African America >60 (>=60); Estimated GFR (Non-African Ame >60 (>=60); Glucose 85 mg/dL (74-106); Magnesium 2.1 mg/dL (1.8-2.4); Phosphorus 2.5 mg/dL (2.6-4.7); Potassium 4.2 mmol/L (3.5-5.1); Sodium 136 mmol/L (136-145); Total Protein 6.5 g/dL (6.4-8.2)
[2023-10-28 13:11] LABS: Percent Iron Saturation 13.2 %
[2023-10-29 04:08] LABS: Vitamin B12 593 pg/mL (232-1245)
[2023-10-29 14:10] LABS: Transferrin 317 mg/dL (192-364)
[2023-11-01 14:08] LABS: Methylmalonic Acid, Serum 142 nmol/L (0-378)
[2023-11-02 06:10] LABS: Copper Level 94 ug/dL (80-158); Zinc Level 58 ug/dL (44-115)
[2023-11-03 14:10] LABS: Vitamin B6, Plasma 12.2 ug/L (3.4-65.2)
[2023-11-11 17:09] LABS: Vitamin A, Serum 50.1 ug/dL (18.9-57.3)
== END 2023-10-28 10:49 | disposition home or self-care (01) ==
LOC: LAB 10:48
PROVIDERS: PCP Family Medicine
DX: R11.2 Nausea with vomiting, unspecified (principal); E43 Unspecified severe protein-calorie malnutrition; E66.9 Obesity, unspecified
CPT/HCPCS: 36415; 80053; 82306; 82495; 82525; 82542; 82607; 82728; 83540; 83550; 83735; 83785; 83921; 84100; 84207; 84255; 84446; 84466; 84590; 84630; 85025; 86140

== ENCOUNTER 2023-11-05 09:00 | Outpatient (REF) | payer OTHER, SELFPAY ==
[2023-11-05 09:33] LABS: Basophils Absolute Auto 0.1 10^3/uL (0.0-0.1); Basophils Percent Auto 1.2 % (0.2-2.0); Eosinophils Absolute Auto 0.2 10^3/uL (0.0-0.7); Eosinophils Percent Auto 2.7 % (0.9-7.0); Hematocrit 32.6 % (36.0-48.0); Hemoglobin 10.2 g/dL (12.0-16.0); Immature Granulocytes Abs Auto 0.01 10^3/uL (0.00-0.03); Immature Granulocytes Pct Auto 0.2 % (0.0-0.5); Lymphocytes Percent Auto 29.9 % (20.5-60.0); Mean Corpuscular HGB Conc 31.3 g/dL (29.9-35.2); Mean Corpuscular Hemoglobin 26.2 pg (26.7-34.0); Mean Corpuscular Volume 83.6 fL (81.0-99.0); Mean Platelet Volume 11.1 fL (9.5-13.5); Monocytes Absolute Auto 0.8 10^3/uL (0.3-0.8); Monocytes Percent Auto 12.4 % (1.7-12.0); Neutrophils Absolute Auto 3.6 10^3/uL (1.4-6.5); Neutrophils Percent Auto 53.6 % (43.0-75.0); Platelet Count 311 10^3/uL (150-450); Red Cell Distribution Width 14.6 % (11.0-15.0); White Blood Count 6.6 10^3/uL (4.0-11.0)
[2023-11-05 10:48] LABS: Alanine Aminotransferase 23 U/L (14-59); Albumin Globulin Ratio 1.2; Albumin Level 3.5 g/dL (3.4-5.0); Alkaline Phosphatase 71 U/L (46-116); Amylase 46 U/L (25-115); Anion Gap 13.1; Aspartate Amino Transferase 24 U/L (15-37); BUN Creatinine Ratio 15.9; Bilirubin Total 0.3 mg/dL (0.2-1.0); Chloride 101 mmol/L (98-107); Estimated GFR (African America >60 (>=60); Estimated GFR (Non-African Ame >60 (>=60); Globulin 2.9 g/dL; Glucose 58 mg/dL (74-106); Potassium 3.1 mmol/L (3.5-5.1); Sodium 137 mmol/L (136-145); Total Protein 6.4 g/dL (6.4-8.2)
== END 2023-11-05 09:01 | disposition home or self-care (01) ==
LOC: LAB 09:00
PROVIDERS: PCP Family Medicine; Visit Provider Family Medicine
DX: R07.9 Chest pain, unspecified (principal)
CPT/HCPCS: 36415; 80053; 82150; 83690; 83880; 84484; 85025

== ENCOUNTER 2023-11-07 10:43 | Emergency (ER) | payer OTHER, SELFPAY ==
[2023-11-07 10:48] VITALS: BP 149/100; PULSE 107; TEMP 36.8; O2SAT 100; BMI 29.9
--- OUTSIDE RECORDS SUMMARY | 2023-11-07 10:59 | XMS_ITS | CCD ---
Author Organization [facility] CliniSyid Care Team Providers Care Warp Drawer Name Role Phone PHYSICIAN, DEFAULT Unavailable Unavailable PHYSICIAN, DEFAULT Unavailable Unavailable Shanna June Primary Care Provider Unavail able Slade DATA VIRTUALIZATION CONSULTANT, Shanna Primary Care Provider Mona vailable Slade SPEECH PATHOLOGY SUPERVISOR - EARTH SCIENCE FACULTY MEMBER, Shanna Primary Care Provid er LUCIE MORA Attending Unavailable SHANNA JUNE Primary Care Unavailable SHANNA JUNE Referring Unavailable LUCIE MORA Attending Unavailable SHANNA JUNE Primary Care Unavailable SELF, SELF Referring Unavailable Antelmo Davey Unavailable Deacon Kat MD Unavailable Slade CAMPOS Shanna Unavailable Shanna June CNP Primary Care Provider [phone] Antelmo Davey MD Unavailable Wally Foley Primary Care Provider Shanna June Unavailable Wally Foley Primary Care Provider Antelmo Davey MD Unavailable Deacon Kat MD Unavailable Slade CAMPOS Shanna Unavailable Shanna June CNP Primary Care Provider Antelmo Davey MD Unavailable Deacon Kat MD Unavailable Slade CAMPOS Shanna Unavailable Shanna June CNP Primary Care Provider [phone] Slade CAMPOS, Shanna Unavailable [phone] Slade OFFSHORE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, Shanna Primary Care Provider Antelmo Davey MD Unavailable Deacon Kat MD Unavailable [phone] Slade OFFSHORE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, Shanna Unavailable Slade OFFSHORE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, Shanna Primary Care Provider Wally Foley MD Primary Care Provider Jaquan Morrow Primary Care Physician [phone] Agustin Valentino Unavailable Jaquan Morrow Primary Care [...] Unavailable ZURDO ., DR BURCH Admitting Unavailable DACULA, DR BALDOMERO Campos Consulting Unavailable ZURDO ., [...] WALLY FOLEY Primary Care Unavailable EMMY WATSON [id number] Attending Unavailable WALLY FOLEY Primary Care Unavailable JD RAINEY Attending Unavailable WALLY FOLEY Primary Care Unavailable Shanna Roberts Primary Care Provider Mona vakayeble DIMITRI WALKER Attending Unavailable SLADE, SHANNA Primary Care Unavailable Iván JOHNSON, Michelle Henning Attending Unavailable CRISTHIAN, JAQUAN Primary Care Unavailable CRISTHIAN, JAQUAN Primary Care Unavailable RODRIGUEZ Attending Unavailable CAMDEN RODRIGUEZ Admitting Unavailable CRISTHIAN, JAQUAN Primary Care Unavailable BRUNO WHEAT Consulting Unavailable CORIE HENDRICKSON Attending Unavailable Cristhian SPEECH PATHOLOGY SUPERVISOR.Jaquan CAMPOS Primary Care Provider JAQUAN MORROW Primary Care Unavailable VIC RAMOS Attending Unavailable VIC RAMOS Admitting Unavailable Cristhian 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 Jaquan Ortega Primary Care Provider [phone] DO Claus Obrien Emergency Provider GENERIC PROVIDER, NO ASSIGNED PCP Primary Care Unavailable Generic Provider , No Assigned Pcp Primary Car e Provider Unavailable Generic Provider , No Assigned Pcp Primary Car e Provider Unavailable Beverley, DATA VIRTUALIZATION CONSULTANT-BC Trace E Emergency Provider [phone] Generic Provider , No Assigned Pcp Primary Car e Provider Unavailable Cristhian, 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 Jaquan Ortega Primary Care Provider Beverley, DATA VIRTUALIZATION CONSULTANT-BC Trace E Emergency Provider [phone] SLIM Parker Emergency Provider Cristhian SPEECH PATHOLOGY SUPERVISOR.Jaquan CAMPOS Primary Care Provider Generic Provider , No Assigned Pcp Primary Car e Provider Unavailable GENERIC PROVIDER, NO ASSIGNED PCP Primary Care Unavailable Jacquelyn JOHNSON, Deacon Ahumada Unavailable [phone] Generic Provider , No Assigned Pcp Primary Car e Provider Unavailable Cristhian, 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 Jaquan Ortega Primary Care Provider MD Thomas Calix Primary Care Provider [phone] GABRIELLA Sabillon Emergency Provider MD Tahir Whitt Admit Provider MD Tahir Whitt Attending Provider [phone] DO Michael Yazid Admit Provider DO Michael Yazid Attending Provider MD Keven Kimbrough Other Provider DO Jeramy Cunningham Emergency Provider Agustin Bautista Unavailable [phone] Thomas Calix MD Primary Care Provider NONE, XXXX Primary Care Physician Unavailab DO Claus Morris Emergency Provider Thomas Calix Primary Care Unavailable Michael, Yazid Admitting Unavailable Michael, Yazid Attending Unavailable Keven Kimbrough Consulting Unavailable Thomas Calix Primary Care Unavailable Jeramy Cunningham Admitting Unavailable Jeramy Cunningham Attending Unavailable Gabino Parker Admitting Unavailable Gabino Parker Attending Unavailable Jaquan Morrow Primary Care Unavailable Jamel Loweryer E Attending Unavailable Jaquan Morrow Primary Care Unavailable Beverley, Trace E Admitting Unavailable Claus Obrien Admitting Unavailable Claus Obrien Attending Unavailable Jaquan Morrow Shannon Primary Care Unavailable Thomas Calix M Primary Care Unavailable Claus Obrien Admitting Unavailable Claus Obrien Attending Unavailable Shaan Sabillon Admitting Unavailable Shaan Sabillon Attending Unavailable Thomas Calix M Primary Care Unavailable BERNARDINO, PABLO Sandy Attending Unavailable PABLO LEBRON Referring Unavailable CRISTHIAN, JAQUAN L Primary Care Unavailable BERNARDINO, PABLO Sandy Attending Unavailable SELF Referring Unavailable HOTHOMAS Salomon M Primary Care Unavailable BERNARDINO, PABLO Sandy Attending Unavailable BERNARDINOPABLO ESPINAL Referring Unavailable CRISTHIAN, JAQUAN L Primary Care Unavailable BERNARDINO, PABLO Sandy Attending Unavailable BERNARDINO, PABLO Sandy Referring Unavailable CRISTHIAN, JAQUAN L Primary Care Unavailable BERNARDINO, PALBO Sandy Attending Unavailable CRISTHIAN, JAQUAN L Primary Care Unavailable JACKSON ANDERSON Referring Unavailab KEESHA Cook Attending Unavailable CRISTHIAN, JAQUAN L Primary Care Unavailable HOTHOMAS Salomon M Primary Care Unavailable ANTONIETTA ÁLVAREZ MD Attending Unavailable RAYNA BILLINGSLEY Admitting Unavailable HOAime, THOMAS M Primary Care Unavailable MARIELA SPANGLER Attending Unavailable STEVE ESTRADA Attending Unavailable CRISTHIAN, JAQUAN L Primary Care Unavailable ELISA VIVEROS Consulting Unavailable BEATRICE, RASHMI Admitting Unavailable HAYDEE, KHALED Consulting Unavailable STEVE ESTRADA Admitting Unavailable CRISTHIAN, JAQUAN L Primary Care Unavailable MANICKAM, SUNDARA Attending Unavailable CHETNA NESS Consulting Unavailable RANGWALINDSAY CRISELDA Admitting Unavailable LUCY, MAIDANA Attending Unavailable CRISTHIAN, JAQUAN L Primary Care Unavailable RAYNA BILLINGSLEY Attending Unavailable JACOBO LYNCH Admitting Unavailable CRISTHIAN, JAQUAN L Primary Care Unavailable CHEYENNE FARNSWORTH Consulting Unavailable HOY, THOMAS M Primary Care Unavailable LIBBY URBINA Admitting Unavailable MANICKAM, SUNDARA Attending Unavailable SERENA STALEY Attending Mona vailable THOMAS CALIX M Primary Care Unavailable CORIE CRAFT M.D. Attending Unavaila ble THOMAS CALIX M Primary Care Unavailable HOY, THOMAS M Primary Care Unavailable LOKESH PRAKASH Attending Unavailable DEAOCN KAT Referring Unavailable CRISTHIAN, JAQUAN L Primary Care Unavailable CRISTHIAN, JAQUAN ORTEGA Primary Care Unavailable DEACON KAT Admitting Unavailable HOY, THOMAS M Primary Care Unavailable DEACON KAT Attending Unavailable CRISTHIAN, JAQUAN SHANNON Primary Care Unavailable DEACON KAT Admitting Unavailable GUTDEACON MARCANO Attending Unavailable CRISTHIAN, JAQUAN SHANNON Primary Care Unavailable SERENA HAMM Attending Unavailabl e GUTDEACON MARCANO R Admitting Unavailable GUTDEACON MARCANO Attending Unavailable GUTDEACON MARCANO Referring Unavailable [facility]AN[facility] Unavailable GUTDEACON MARCANO R Admitting Unavailable FARIDA BURGOS Consulting Unavailable DEACON KAT Attending Unavailable CRISTHIAN, JAQUAN SHANNON Primary Care Unavailable CRISTHIAN, [facility] Primary Care Unavailable SCARLETT NICKERSONU K Referring Unavailable TIFFANIE CHIU Attending Unavailabl e [facility]HIAN, [facility] Unavailable GUTDEACON MARCANO Referring Unavailable CRSITHIAN, JAQUAN SHANNON Primary Care Unavailable [facility]HIAN, [facility] Primary Care Unavailable DEACON KAT Admitting Unavailable EARNEST [facility] Referring Unavailable DEACON KAT Attending Unavailable MARCOS MORENO Attending Unavailable JR. KELVIN, TINO Abbasi Attending Unavaila rogelio WARREN JR., TINO Abbasi Referring Unavaila rogelio WARREN JR., TINO Abbasi Attending Unavaila rogelio WARREN JR., TINO Abbasi Referring Unavaila rogelio WARREN JR., TINO Abbasi Attending Unavaila MARCOS Betts Attending Unavailable JR. KELVIN, TINO Abbasi Attending Unavaila MARCOS Betts Attending Unavailable THOMAS CALIX M Primary Care Unavailable SEN MARCUS Admitting Unavaila ble HOYTHOMAS M Primary Care Unavailable SHANNA WOODS Attending Unavailable CRISTHIAN, JAQUAN SHANNON Primary Care Unavailable KARINA العلي Attending Unavailable CRISTHIANJAQUAN Primary Care Unavailable RYLEE THACKER Attending Unavailable THACKERRYLEE Referring Unavailable HOY, THOMAS M Primary Care Unavailable STEPHANIE ROGERS Attending Unavail able KASIE AVALOS Referring Unavailable HOY, THOMAS M Primary Care Unavailable BREANNA STERN Attending Unavailable HOYCHERYLTHOMAS M Primary Care Unavailable CRISTHIAN, JAQUAN SHANNON Primary Care Unavailable Deacon Kat Attending Unavailable CRISTHIAN, JAQUAN SHANNON Primary Care Unavailable RYLEE THACKER Attending Unavailable THACKER, RYLEE Referring Unavailable CRISTHIAN, JAQUAN ORTEGA Primary Care Unavailable BREANNA STERN Attending Unavailable Deacon Kat Referring Unavailable CRISTHIAN, JAQUAN ORTEGA Primary Care Unavailable VIC RAMOS Attending Unavailable CRISTHIAN, JAQUAN ORTEGA Primary Care Unavailable VIC RAMOS Attending Unavailable HOY, THOMAS M Primary Care Unavailable JOLEENPHAJAKE, KASIE Referring Unavailable BRITT BRADSHAW Attending Unavailable HOY, THOMAS M Primary Care Unavailable ROUPHAEL, KASIE Referring Unavailable HOY, THOMAS M Primary Care Unavailable CRISTHIAN, JAQUANPO ORTEGA Referring Unavailable HOY, THOMAS M Primary Care Unavailable CRISTHIAN, JAQUAN SHANNON Referring Unavailable GEORGINA CARRILLO Attending Unavailable HOY, THOMAS M Primary Care Unavailable DANYELL IBRAHIM Attending Unavailable DANYELL IBRAHIM Admitting Unavailable HOY, THOMAS M Primary Care Unavailable HOY, THOMAS M Primary Care Unavailable Deacon Kat Attending Unavailable CRISTHIAN, JAQUAN ORTEGA Primary Care Unavailable MARCOS MORENO Referring Unavailable FRANCISCO J STEVE Attending Unavailable VIC RAMOS Referring Unavailable VIC RAMOS Attending Unavailable HOY, THOMAS M Primary Care Unavailable Deacon Kat Attending Unavailable CRISTHIAN, JAQUAN ORTEGA Primary Care Unavailable Deacon Kat Referring Unavailable CRISTHIAN, JAQUAN ORTEGA Primary Care Unavailable BREANNA STERN Referring Unavailable CRISTHIAN, JAQUAN ORTEGA Primary Care Unavailable SHANNA WOODS Attending Unavailable ROMIE HAIRSTON Admitting Unavailable AGUSTIN ZAMORANO Attending Unavailable CRISTHIAN, JAQUAN ORTEGA Primary Care Unavailable Deacon Kat Attending Unavailable CRISTHIAN, JAQUAN ORTEGA Primary Care Unavailable Deacon Kat Attending Unavailable CRISTHIAN, JAQUAN ORTEGA Primary Care Unavailable SELF Referring Unavailable CRISTHIAN, JAQUAN ORTEGA Primary Care Unavailable JOLEENPHAJAKE, KASIE Attending Unavailable HOY, THOMAS M Primary Care Unavailable BOOGIE MURGUIA Attending Unavailable CRISTHIAN, JAQUAN ORTEGA Primary Care Unavailable CRISTHIAN, JAQUAN ORTEGA Primary Care Unavailable RYLEE THACKER Attending Unavailable THACKER, RYLEE Referring Unavailable HOY, THOMAS M Primary Care Unavailable JOLEENPHAJAKE, KASIE Referring Unavailable JOLEENPHAKASIE JOSEPH Attending Unavailable HOY, THOMAS M Primary Care Unavailable HOY, THOMAS M Primary Care Unavailable Deacon Kat Referring Unavailable SHERRY MAGAÑA Attending Unavailable GENERIC PROVIDER, NO ASSIGNED PCP Primary Care Unavailable XIOMARA PETTY Attending Unavailable GÓMEZ WOOSUP M Referring Unavailable GENERIC PROVIDER, NO ASSIGNED PCP Primary Care Unavailable GÓMEZ WOOSBAHMAN M Attending Unavailable GENERIC PROVIDER, NO ASSIGNED PCP Primary Care Unavailable XIOMARA PETTY Referring Unavailable GENERIC PROVIDER, NO ASSIGNED PCP Primary Care Unavailable PARK, WOOSUP M Admitting Unavailable GENERIC PROVIDER, NO ASSIGNED PCP Primary Care Unavailable MICHAEL COXUDAMILOLA Sarwat Attending Unavaila JIN Holt Consulting Unavailable GENERIC PROVIDER, NO ASSIGNED PCP Primary Care Unavailable MIGUE LANGEL PALOMO Primary Care Unavailable EVE AGOSTO Consulting Unavailable PARK, WOOSUP M Admitting Unavailable PARK, WOOSUP M Attending Unavailable PARK, WOOSUP M Consulting Unavailable BECKY ROMERO Consulting Unavailable KURT MATOS Consulting Unavailable PARK, WOOSUP M Attending Unavailable PARK WOOSUP M Attending Unavailable WINTER RICKETTS Primary Care Unavailable PARK, WOOSUP M Attending Unavailable GENERIC PROVIDER, NO ASSIGNED PCP Primary Care Unavailable GENERIC PROVIDER, NO ASSIGNED PCP Primary Care Unavailable BALDOMERO WOODARD Admitting Unavailable YAJAIRA COXMINICOLELA Sarwat Attending Unavaila rogelio MAGAÑA WOOSBAHMAN M Consulting Unavailable DAVID VALADEZ Referring Unavailable GENERIC PROVIDER, NO ASSIGNED PCP Primary Care Unavailable Cristhian, DATA VIRTUALIZATION CONSULTANT Jaquan L Attending Unavailable Cristhian, DATA VIRTUALIZATION CONSULTANT Jaquan L Attending Unavailable Rajni Rouse Attending Unavailable GABRIELLA PRAKASH Attending Unavailab le Cristhian, DATA VIRTUALIZATION CONSULTANT Jaquan L Admitting Unavailable Cristhian, DATA VIRTUALIZATION CONSULTANT Jaquan L Admitting Unavailable Cristhian, DATA VIRTUALIZATION CONSULTANT Jaquan L Admitting Unavailable Cristhian, DATA VIRTUALIZATION CONSULTANT Jaquan L Admitting Unavailable Cristhian, DATA VIRTUALIZATION CONSULTANT Jaquan L Attending Unavailable Mateusz Garcia Attending Unavailable Earnest Jett Attending Unavailable Ashutosh Albright Attending Unavailable Mateusz Garcia Attending Unavailable Cristhian, DATA VIRTUALIZATION CONSULTANT Jaquan L Attending Unavailable Cristhian, DATA VIRTUALIZATION CONSULTANT Jaquan L Attending Unavailable Cristhian, DATA VIRTUALIZATION CONSULTANT Jaquan L Attending Unavailable Cristhian, DATA VIRTUALIZATION CONSULTANT Jaquan L Attending Unavailable Cristhian, DATA VIRTUALIZATION CONSULTANT Jaquan L Attending Unavailable Cristhian, DATA VIRTUALIZATION CONSULTANT Jaquan L Attending Unavailable Earnest Jett Attending Unavailable Jose Ramon Astrjessenia H Attending Unavailable Mateusz Garcia Attending Unavailable Cristhian, DATA VIRTUALIZATION CONSULTANT Jaquan Johnson Attending Unavailable Cristhian, DATA VIRTUALIZATION CONSULTANT Jaquan L Admitting Unavailable Sarmini, Webb Talal Consulting Unavaila Moncho Medeiros Attending Unavailable Moncho Trejo Admitting Unavailable MD Jon Rivera Talal Consulting Unava ilable Miguel, Jon Talal Consulting Unavaila ble Sarmini, Jon Talal Consulting Unavaila ble Adamowicz, Gabino Consulting Unavailable Adamowicz, DO Gabino Consulting Unavailabl e Adamowicz, Gabino Consulting Unavailable Adamowicz, Gabino Consulting Unavailable Adamowicz, Gabino Consulting Unavailable Adamowicz, Gabino Consulting Unavailable Adamowicz, Gabino Consulting Unavailable Adamowicz, Gabino Consulting Unavailable Adamowicz, Gabino Consulting Unavailable Ashutosh Albrgiht Attending Unavailable Mateusz Garcia Attending Unavailable Lokesh Terry Attending Unavailable Cristhian, DATA VIRTUALIZATION CONSULTANT Jaquan L Attending Unavailable Cristhian, DATA VIRTUALIZATION CONSULTANT Jaquan L Attending Unavailable Cristhian, DATA VIRTUALIZATION CONSULTANT Jaquan L Attending Unavailable Critshian, DATA VIRTUALIZATION CONSULTANT Jaquan L Attending Unavailable Allergies Allergy Classification Reported Allergen(s) Allergy Type Date of Onset Reaction(s) Facility [facility]io[facility] (7 sources) Codeine; Translations: [codeine] Drug Allergy 10-04-19 20 GI Upset [facility] (5 sources) Codeine And Related Propensity to adverse reactions to drug 07-08-19 14 Other (See Comments), Nausea And Vomiting [facility] (20 sources) Codeine; Translations: [codeine] Drug Allergy 10-04-19 20 GI Upset, Nausea/vomitin g [facility] (3 sources) Propofol Drug Allergy 06-19-19 22 Other: See Comments [facility] (20 sources) Adhesive Tape-Silicones; Translations: [ADHESIVE TAPE-SILICONES] Drug Intolerance 02-07-20 20 Intolerance [facility] (2 sources) Morphine And Related Propensity to adverse reactions to drug 07-08-19 14 Other (See Comments), Nausea And Vomiting [facility] (7 sources) Codeine Drug Allergy vomiting [facility] Other (4 sources) Acetaminophen / oxyCODONE Drug Allergy anaphylaxis [facility] [employer] ([email or web address]) Other (20 sources) Non-steroidal anti-inflammator y agent; Translations: [NSAIDS (NON-STEROIDAL ANTI-INFLAMMATOR Y DRUG)] Propensity to adverse reactions to drug 01-30-20 22 Contraindicati on-Medical Surgical, Nausea/vomitin g [facility] Work Phone: (1 source) Codeine Drug Allergy 07-08-19 14 [facility] (1 source) Anastia Drug allergy (disorder) [facility] (16 sources) Non-steroidal anti-inflammator y agent; Translations: [NSAIDs] Drug allergy Unknown (qualifier value) [facility] (2 sources) Acetaminophen; Translations: [acetaminophen] Drug Allergy 04-06-19 anaphylaxis [facility] (8 sources) oxyCODONE; Translations: [oxycodone] Drug Allergy 04-06-19 anaphylaxis [facility] (6 sources) NSAIDS (Non-Steroidal Anti-Inflamma; Translations: [NSAIDS (Non-Steroidal Anti-Inflamma] Propensity to adverse reactions 07-16-19 d/t surgery [facility] (1 source) Codeine Drug Allergy 08-21-19 [facility] Medications Current Medications Medication [...] Ordered Start: 2021 take 1 tablet by [facility] every six hours Acetaminophen-Codeine #3 300-30 [...] for 3 day(s), 10 tab(s), Refill(s) 0, [id number], 168, cm, 10/19/22 8:44:00 EDT, Height/Length Dosing, 85.6, kg, 10/19/22 8:44:00 EDT, Weight Dosing Start Date: 10/19/22 Stop Date: 10/22/22 Status: Ordered Start: 06-07-2022 acetaminophen- oxycodone 325 mg-5 mg Tab 1 tab(s), Oral, q4hr for pain, 12 tab(s), Refill(s) 0, [id number], 168, cm, 06/07/22 10:23:00 EDT, Height/Length [...] day(s), # 28 tab(s), Refills(s) 0, Pharmacy: [id number], 168, cm, 06/17/22 10:54:00 EDT, Height/Length [...] 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 [id number] 200 actuat albuterol 0.09 mg/actuat metered dose [...] Albuterol (Eqv-Ventolin HFA) 90 mcg/inh inhalation aerosol (11 sources) Start: take 2 puff(s) by inhalation every six hours Albuterol (Eqv-Ventolin HFA) 90 mcg/inh inhalation aerosol 2 puff(s), Inhalation, q6hr, 18 gm, Refill(s) 3, [id number], 167, cm, 05/17/23 14:25:00 EDT, Height/Length Dosing, 81, kg, 05/17/23 14:25:00 EDT, Weight Dosing Start Date: 05/31/23 Status: Ordered Start: 12-30-2022 take 2 puff(s) by in halation every six hours Albuterol (Eqv-Ventolin HFA) 90 mcg/inh inhalation aerosol 2 puff(s), Inhalation, q6hr, 18 gm, Refill(s) 0, [id number], 168, cm, 12/29/22 15:01:00 EST, Height/Length [...] Comment on above: [facility] azithromycin 250 mg oral tablet (1 source) Macrolide Antimicrobial Start: 12-29-2022 End: 01-03-2023 azithromycin 250 mg Tab = 1 packet(s), Oral, As Directed, as directed on package labeling, X 5 day(s), # 6 tab(s), Refills(s) 0, [id number], cm, 12/29/22 15:01:00 EST, Height/Length [...] on above: Take 2 tablets by mo [facility] three times a day as needed [...] day(s), # 21 cap(s), Refills(s) 0, Pharmacy: [id number], 168, cm, 12/29/22 15:01:00 EST, Height/Length [...] 2023 1:00am Start: 11-10-2022 End: 12-06-2023 take 10 mg by mouth three times daily busPIRone 10 mg, Oral, TID, Refills(s) 0 Start Date: 06/11/23 Status: Ordered Start: 11-03-2022 End: 06-09-2023 take 1 tablet [...] day(s), # 20 tab(s), Refills(s) 0, Pharmacy: [id number], 168, cm, 06/17/22 10:54:00 EDT, Height/Length [...] day(s), # 28 tab(s), Refills(s) 0, Pharmacy: [id number], 167, cm, 05/06/23 15:49:00 EDT, Height/Length Dosing, 82.7, kg, 05/06/23 15:49:00 EDT, Weight Dosing Start Date: 05/06/23 Stop Date: 05/13/23 Status: Ordered Start: 04-02-2023 take 2 capsules by m outh four times daily Bentyl 10 mg Cap 20 mg = 2 cap(s), Oral, QID, # 20 cap(s), Refills(s) 0, Pharmacy: [id number], 167, cm, 04/02/23 11:01:00 EST, Height/Length Dosing, 82.7, kg, 04/02/23 11:01:00 EST, Weight Dosing Start Date: 04/02/23 Status: Ordered Start: 06-05-2022 End: 06-15-2022 take 1 capsule by mouth four times daily Bentyl 10 mg Cap 10 mg = 1 cap(s), Oral, QID, X 10 day(s), # 40 cap(s), Refills(s) 0, Pharmacy: [id number], 167.2, cm, 05/05/22 13:30:00 EDT, Height/Length Dosing, 84.5, kg, 05/05/22 13:30:00 EDT, Weight Dosing Start Date: 06/05/22 Stop Date: 06/15/22 Status: Ordered Start: 12-20-2020 take 2 capsules by m outh four times daily Bentyl 10 mg Cap 20 mg = 2 cap(s), Oral, QID, # 20 cap(s), Refills(s) 0, Pharmacy: [id number], 167, cm, 12/20/20 9:30:00 EDT, Height/Length [...] Start: 05-29-2022 take 1 capsule by mo [facility] twice daily doxycycline hyclate 100 mg Cap 100 mg = 1 cap(s), Oral, BID, # 20 cap(s), Refills(s) 0, Pharmacy: [id number], 167.2, cm, 05/05/22 13:30:00 EDT, Height/Length Dosing, 84.5, kg, 05/05/22 13:30:00 EDT, Weight Dosing Start Date: 05/29/22 Status: Ordered Start: 03-31-2021 take 1 capsule by [facility] every twelve hours Doxycycline Monohydrate 100 MG 1 capsule Orally every 12 hrs for 7 days Mar, Active DULoxetine 60 mg oral capsule (15 sources) Serotonin and Norepinephrine Reuptake Inhibitor Start: 01-16-2021 take 60 mg by mouth twice daily Cymbalta 60 mg, Oral, BID, Refills(s) 0 Start Date: 01/16/21 Status: Ordered Start: 10-14-2019 take 1 capsule by [facility] every twelve hours DULoxetine HCl 60 MG 1 capsule Orally Twice a day for 90 days Sep, Active take 1 capsule by mo [facility] twice daily DULoxetine (CYMBALTA) 30 MG [...] Comment on above: Take 1 tablet by [facility] once daily. ferrous sulfate 325 mg [...] Start: 01-20-2021 take 1 capsule by mo [facility] once daily, then take 1 capsule by mouth twice daily, then take 1 capsule by mouth three times daily gabapentin 300 mg Cap See Instructions, 1 cap(s) Oral daily x 1 day, 1 tab BID x 1 day, then 1 tab TID thereafter., # 90 cap(s), Refills(s) 0, Pharmacy: [id number], 167, cm, 01/16/21 13:32:00 EST, Height/Length [...] subsequent refills. 12 mL 2 08/25/2023 08/17/2024 Suspended Start: 08-25-2023 End: 08-17-2024 ketamine 5% nasal spray solu tion (CPD) [...] Active Start: 05-03-2023 take 1 tablet by [facility] once daily levothyroxine 75 mcg (0.075 mg) Tab 75 mcg = 1 tab(s), Oral, Daily, # 60 tab(s), Refills(s) 1, [id number], cm, 04/02/23 11:01:00 EST, Height/Length Dosing, 82.7, kg, 04/02/23 11:01:00 EST, Weight Dosing Start Date: 05/03/23 Status: Ordered Start: 03-03-2023 take 1 tablet by [facility] once daily levothyroxine 100 mcg (0.1 mg) Tab 100 mcg = 1 tab(s), Oral, Daily, # 90 tab(s), Refills(s) 0, Pharmacy: [facility], 168, cm, 02/03/23 14:52:00 EST, Height/Length Dosing, 85.5, kg, 02/03/23 14:52:00 EST, Weight Dosing Start Date: 03/03/23 Status: Ordered Start: 10-05-2022 take 1 tablet by [facility] once daily levothyroxine 100 mcg (0.1 mg) Tab 100 mcg = 1 tab(s), Oral, Daily, # 30 tab(s), Refills(s) 1, [id number], cm, 07/29/22 8:44:00 EDT, Height/Length Dosing, 81, kg, 07/29/22 8:44:00 EDT, Weight Dosing Start Date: 10/05/22 Status: Ordered Start: 07-22-2022 take 1 tablet by [facility] once daily levothyroxine 125 mcg (0.125 mg) Tab See Instructions, TAKE 1 TABLET BY MOUTH EVERY DAY, # 30 tab(s), Refills(s) 2, Pharmacy: [facility] [id number], 168, cm, 07/20/22 10:48:00 EDT, Height/Length Dosing, 81.1, kg, 07/20/22 10:48:00 EDT, Weight Dosing Start Date: 07/22/22 Status: Ordered Start: 04-23-2022 [facility] lev[facility]ine 125 mcg (0.125 mg) Tab 125 mcg = 1 tab(s), Oral, Daily, # 90 tab(s), Refills(s) 0, Pharmacy: [facility] #[id number], 167.6, cm, 04/15/21 22:31:00 EST, Height/Length [...] capsule (20 sources) Guanylate Cyclase-C Agonist Start: End: take 1 capsule by mouth once daily in the morning linaCLOtide (LINZESS) 290 mcg capsule Take 1 capsule by mouth daily at 6 am. 30 capsule 2 11/02/2023 01/31/2024 Active Start: 05-12-2023 take 1 capsule by [...] above: Take 1 capsule by mo uth DAILY (6 AM). Take 1 capsule by mo uth daily at 6 am. liothyronine sodium 0.005 mg oral tablet (20 sources) l-Triiodothyronin e Start: 03-03-2023 take 1 tablet by mouth once daily liothyronine 5 mcg Tab 5 mcg, Oral, Daily, # 90 tab(s), Refills(s) 3, Pharmacy: [facility], 168, cm, 02/03/23 14:52:00 EST, Height/Length Dosing, 85.5, kg, 02/03/23 14:52:00 EST, Weight Dosing Start Date: 03/03/23 Status: Ordered Start: 11-25-2022 take 1 tablet by robinson th once daily liothyronine 5 mcg Tab 5 mcg, Oral, Daily, # 90 tab(s), Refills(s) 3, [id number], cm, 11/25/22 11:03:00 EDT, Height/Length Dosing, 82.5, kg, 11/25/22 11:03:00 EDT, Weight Dosing Start Date: 11/25/22 Status: Ordered Start: 05-21-2022 take 1 tablet by robinson once daily liothyronine 5 mcg Tab 5 mcg, Oral, Daily, # 90 tab(s), Refills(s) 1, Pharmacy: [facility] #[id number], 167.2, cm, 05/05/22 13:30:00 EDT, Height/Length [...] dizziness, # 30 tab(s), Refills(s) 0, Pharmacy: [facility] #[id number], 168, cm, 06/10/22 10:57:00 EDT, Height/Length Dosing, 83.7, kg, 06/10/22 10:57:00 EDT, Weight Dosing Start Date: 06/10/22 Status: Ordered metFORMIN hydrochloride 1000 mg oral tablet (6 sources) Biguanide Start: 03-04-2018 take 1000 mg by mouth twice daily metformin 1,000 mg, Oral, BID, Refills(s) 0, Blood glucose Start Date: 03/04/18 Status: Ordered take 2 tablets by mo [facility] twice daily at mealtime metformin 500 MG Tab tablet Take 1,000 m g by mouth 2 times daily with meals. 0 Active methocarbamol 750 mg oral tablet (20 sources) Muscle Relaxant Start: 06-30-2023 End: 11-07-2023 take 1 tablet by mouth three times daily Robaxin-750 oral tablet 1,500 mg = 2 tab(s), Oral, TID, X 3 day(s), # 18 tab(s), Refills(s) 0, Pharmacy: [facility]/pharmacy #[id number], 167, cm, 11/04/23 10:46:00 EDT, Height/Length Dosing, 89.3, kg, 11/04/23 10:46:00 EDT, Weight Dosing Start Date: 11/04/23 Stop Date: 11/07/23 Status: Ordered Start: 06-30-2023 End: 06-30-2023 take 1 tablet [...] day(s), # 21 tab(s), Refills(s) 0, [id number] 168, cm, 12/29/22 15:01:00 EST, Height/Length Dosing, 83.8, kg, 12/29/22 15:01:00 EST, Weight Dosing Start Date: 12/29/22 Stop Date: 01/04/23 Status: Ordered Start: 07-20-2022 End: 07-26-2022 Medrol 4 mg Tab = 1 packet(s ), Oral, As Directed, as directed on package labeling, X 6 day(s), # 21 tab(s), Refills(s) 0, [id number] 168, cm, 07/20/22 10:48:00 EDT, [...] labeling, # 21 tab(s), Refills(s) 0, Pharmacy: [facility] #[id number], 167, cm, 04/02/23 11:01:00 EST, Height/Length [...] Start: 08-14-2023 take 1 tablet by robinson every six hours Metoclopramide Hcl (Reglan) 10 [...] Start: 03-24-2023 take 1 tablet by robinson four times daily metoclopramide 10 mg Tab [...] day(s), # 30 tab(s), Refills(s) 0, Pharmacy: [facility] #[id number], 168, cm, 06/17/22 10:54:00 EDT, Height/Length [...] blood pressures persist 30 tablet 08/06/2023 Active mirtazapine 30 mg oral tablet (20 sources) Start: 06-03-2023 End: 11-30-2023 take 30 mg by mouth once daily at bedtime mirtazapine 30 mg, Oral, Once a day (at bedtime), Refills(s) 0 Start Date: 06/11/23 Status: Ordered Start: 02-13-2023 take 30 mg by mouth once daily Mirtazapine Active 30 MG PO Daily February 13, 2023 1:00am Start: 11-10-2022 take 2 tablets by mo [facility] once daily at bedtime mirtazapine (Remeron) [...] TABLET BY ROBINSON TH DAILY AT BEDTIME [facility] Prescription (2 sources) Start: 06-11-19 [facility] Prescription Start Date: 06/11/23 Status: Ordered [...] Refill(s) 0 Start Date: 05/05/22 Status: Ordered nut.tx.impaired digest fxn (PEPTAMEN 1.5) 0.068 gram- 1.5 kcal/mL (9 sources) Start: 10-13-2023 nut.tx.impaire d digest fxn (PEPTAMEN 1.5) 0.068 gram- 1.5 kcal/mL 1,100 mL by FEEDING TUBE route once daily. Peptamen 1.5 TF at 50 ml/hr goal rate x 22 hrs. Flush 30 ml q 4 hrs. Pt is to start at 10 ml/hr and adv as tolerated. 90200 mL 5 10/13/2023 Active nutritional drink (Ensure Hi gh Protein) [...] Run for 18 hours, off 6 hours. 47698 mL 3 05/29/2023 06/09/2023 Discontinued Start: 05-29-2023 End: 08-27-2023 nutritional supplements (NUT PIPO 2.0) 0.08 gram-2 kcal/mL liqd 45 mL/hr by FEEDING TUBE route once daily. Run for 18 hours, off 6 hours. 27227 mL 3 05/29/2023 08/27/2023 Active Start: 05-28-2023 End: 08-26-2023 nutritional supplements (NUT PIPO 2.0) 0.08 gram-2 kcal/mL liqd 45 mL/hr by FEEDING TUBE route once daily. Run for 18 hours, off 6 hours. 91318 mL 3 05/28/2023 08/26/2023 Active Comment on above: 45 mL/hr by FEEDING TUBE route once daily. Run for 18 hours, off 6 hours. nystatin 705148 unt/ml oral suspension (1 source) Polyene Antifungal [...] q6hr, # 12 tab(s), Refills(s) 0, Pharmacy: [facility] #[id number], 168, cm, 06/07/22 10:23:00 EDT, Height/Length Dosing, 83, kg, 06/07/22 10:23:00 EDT, Weight Dosing Start Date: 06/07/22 Status: Ordered Start: 07-27-2021 End: 07-27-2021 ondansetron (ZOFRAN) injecti on 4 mg Start: 12-28-2020 take 1 tablet by robinson th three times daily Zofran ODT 4 mg Tab 4 mg = 1 tab(s), Oral, TID, # 10 tab(s), Refills(s) 0, Pharmacy: [facility] #[id number], 167, cm, 12/20/20 9:30:00 EDT, Height/Length [...] Comment on above: Take 1 tablet by [facility] every 8 hours as needed for nausea/vomiting. oxyCODONE hydrochloride 5 mg oral tablet (19 sources) Opioid Agonist Start: 10-07-19 End: 10-12-19 take 1 tablet by mouth every six hours as needed for pain oxyCODONE IR (ROXICODONE) 5 mg immediate release tablet Indications: Post-op pain Take 1 tablet by mouth every 6 hours as needed for pain for up to 5 days. 5 tablet 10/07/2023 10/12/2023 Active Start: 05-14-2023 take 1 capsule by mo [facility] every six hours as needed for pain oxyCODONE 5 mg Cap 5 mg = 1 cap(s), Oral, q6hr, PRN for pain, # 12 cap(s), Refills(s) 0, Pharmacy: [facility] #[id number], 167, cm, 05/12/23 9:37:00 EDT, Height/Length Dosing, 79.8, kg, 05/12/23 9:37:00 EDT, Weight Dosing Start Date: 05/14/23 Status: Ordered Start: 05-09-2023 End: 05-12-2023 take 1 tablet by mouth every six hours oxyCODONE 5 mg Tab 5 mg = 1 tab(s), Oral, q6hr, X 3 day(s), # 10 tab(s), Refills(s) 0, Pharmacy: [facility] #[id number], 167, cm, 05/09/23 11:51:00 EDT, Height/Length [...] up to 5 doses. polyethylene glycol 3350 65125 mg powder for oral solution (20 sources) [...] Start: 06-23-2022 End: 06-09-2023 polyethylene glycol 3350 ([place] RALAX) 17 gram/dose powder Take 17 g [...] mEq/L infusion predniSONE 20 mg oral tablet (16 sources) Start: 3 End: 3 take 2 [...] Nausea/Vomiting, # 6 EA, Refills(s) 0, Pharmacy: [facility] #[id number], 167, cm, 05/06/23 15:49:00 EDT, Height/Length [...] TID, # 15 tab(s), Refills(s) 0, Pharmacy: [facility] #[id number], 168, cm, 10/20/22 8:21:00 EDT, Height/Length Dosing, 85.6, kg, 10/20/22 8:21:00 EDT, Weight Dosing Start Date: 10/20/22 Status: Ordered Start: 06-10-2022 take 1 tablet by robinson th every four hours promethazine 12.5 mg oral tablet 12.5 mg = 1 tab(s), Oral, q4hr, # 60 tab(s), Refills(s) 0, Pharmacy: [facility] #[id number], 168, cm, 06/10/22 12:37:00 EDT, Height/Length Dosing, 83.7, kg, 06/10/22 12:37:00 EDT, Weight Dosing Start Date: 06/10/22 Status: Ordered Start: 12-20-2020 take 1 tablet by robinson th every six hours as needed for nausea promethazine 25 mg Tab 25 mg = 1 tab(s), Oral, q6hr, PRN as needed for nausea/vomiting, # 12 tab(s), Refills(s) 0, Pharmacy: [facility] #[id number], 167, cm, 12/20/20 9:30:00 EDT, Height/Length [...] Nausea, # 20 tab(s), Refills(s) 0, Pharmacy: [facility] #[id number], 167, cm, 05/12/23 9:37:00 EDT, Height/Length Dosing, 79.8, kg, 05/12/23 9:37:00 EDT, Weight Dosing Start Date: 05/14/23 Status: Ordered Start: 04-02-2023 End: 04-16-2023 sucralfate 1 g/10 mL Oral Nance sp 10 mL 1 gm = 10 mL, Oral, QIDACHS, X 14 day(s), # 560 mL, Refills(s) 0, Pharmacy: [facility] #[id number], 167, cm, 04/02/23 11:01:00 EST, Height/Length [...] QID, # 280 mL, Refills(s) 0, Pharmacy: [facility] #[id number], 168, cm, 10/19/22 8:44:00 EDT, Height/Length [...] Daily, # 10 cap(s), Refills(s) 0, Pharmacy: [facility] #[id number], 168, cm, 06/17/22 10:54:00 EDT, Height/Length Dosing, 83.1, kg, 06/17/22 10:54:00 EDT, Weight Dosing Start Date: 06/17/22 Status: Ordered topiramate 100 mg oral tablet (20 sources) Start: 06-30-2023 End: 06-30-2023 take 50 mg by mouth twice daily 50 mg, oral, 2 times daily, First dose on Wed06/30/23 at 0900 Start: 03-05-2023 take 50 mg by mouth twice jerome y 50 mg, oral, 2 times daily, First dose on Wed03/05/23 at 2100 Start: 02-01-2023 End: 05-30-2023 take 1 tablet by mouth twice daily Topiramate (Topamax) 100 mg tablet Active 100 MG PO Twice daily July 16, 2023 12:00am Start: 07-29-2022 take 1 mg [...] day. HEADACHES Active take 1 tablet by robisnon th twice daily topiramate 25 MG tablet Take 25 mg by mouth 2 times daily. 0 Active topiramate (TOPA MAX) 100 MG tablet Take 50 mg by mouth 2 times daily 0 Active Comment on above: Take 100 mg by mouth twice daily. traMADol hydrochloride 50 mg oral tablet (20 sources) Opioid Agonist Start: 06-09-2023 End: 07-02-2023 take 50 mg by mouth every four hours as needed for pain tramadol 50 mg, Oral, q4hr, PRN as needed for pain, Refills(s) 0 Start Date: 06/11/23 Status: Ordered Start: 11-23-2022 End: 11-26-2022 take 1 tablet [...] pain, # 30 tab(s), Refills(s) 0, Pharmacy: [facility] #[id number], 168, cm, 06/26/22 14:12:00 EDT, Height/Length [...] Nausea/Vomiting, # 12 tab(s), Refills(s) 0, Pharmacy: [facility] #[id number], 167, cm, 05/06/23 15:49:00 EDT, Height/Length [...] Amide Local Anesthetic Start: 08-30-2021 End: 08-30-2021 bupivacaine-EPINE PHrine PF (MARCAINE-w/EPINE PHRINE) 0.5% -[id number] injection 10 mL calcium chloride 0.001 meq/ml / glucose 50 mg/ml / potassium chloride 0.004 meq/ml / sodium chloride 0.103 meq/ml / sodium lactate 0.028 meq/ml injectable solution (1 source) Start: 03-18-2023 End: 03-19-2023 dextrose 5 % and lactated Ringer's infusion calcium chloride 0.0014 meq/ml / potassium chloride 0.004 meq/ml / sodium chloride 0.103 meq/ml / sodium lactate 0.028 meq/ml injectable solution (2 sources) Start: 11-01-2023 End: 11-03-2023 take 30 mL intravenously every hour 30 mL/hr, INTRAVENOUS, CONTINUOUS, Starting on Wed11/01/23 at 0800, Until Wed11/03/23 at 0312, Preprocedure Start: 06-30-2023 End: 06-30-2023 take 100 mL [...] Refill(s) 0, Take 1 puff 2x daily., [id number], 168, cm, 12/29/22 15:01:00 EST, Height/Length Dosing, 83.8, kg, 12/29/22 15:01:00 EST, Weight Dosing Start Date: 12/30/22 Status: Ordered Start: 03-31-2021 take 1 puff(s) by in halation every twelve hours fluticasone-salmeterol (ADVAIR DISKUS) 100-50 mcg/dose inhaler Inhale 1 Puff as instructed every 12 hours. 03/31/2021 Suspended Start: 03-31-2021 take 1 puff(s) by in [...] Discontinued (Therapy completed) Lactated Ringer IV 1000ml (2 sources) Start: 06-14-2023 Lactated Ringer IV 1000ml Lactated [...] 08-26-2023 End: 08-26-2023 midazolam (PF) injection (VERSED) 24 hr mirabegron 25 mg extended release oral tablet (20 sources) beta3-Adrenergic Agonist Start: 07-06-2023 End: 10-13-2023 take 1 tablet by mouth once daily mirabegron (MYRBETRIQ) 25 mg Tb24 Take 1 tablet by mouth once daily. 90 tablet 3 07/06/2023 10/13/2023 Discontinued (Course of therapy completed) multivitamin tablet (20 sources) End: 12-08-2022 take [...] robinson th. Bariatric chewable 2 a day Naltrexone (20 sources) Opioid Antagonist Start: 08-25-2023 End: 10-13-2023 naltrexone 1.5 mg capsule (CPD) Indications: Gastroesophageal reflux disease without esophagitis , Neuralgia and neuritis , Median arcuate ligament syndrome (HCC) , Chronic abdominal pain , S/P gastric bypass Take 1 capsule daily at 9 pm. May increase to 2 capsules if no relief after 2 weeks. Do not use calcium as a bin filler preparation. If insomnia or vivid dreams occur, then would take capsule at 9 am. 60 capsule 11 08/25/2023 10/13/2023 Discontinued (Course of therapy completed) Start: 08-25-2023 naltrexone 1.5 mg capsule (CPD) Indications: Gastroesophageal reflux disease without esophagitis , Neuralgia and neuritis , Median arcuate ligament syndrome (HCC) , Chronic abdominal pain , S/P gastric bypass Take 1 capsule daily at 9 pm. May increase to 2 capsules if no relief after 2 weeks. Do not use calcium as a bin filler preparation. If insomnia or vivid dreams [...] weeks. Do not use calcium as a bin filler preparation. If insomnia or vivid dreams [...] weeks. Do not use calcium as a bin filler preparation. If insomnia or vivid dreams [...] weeks. Do not use calcium as a bin filler preparation. If insomnia or vivid dreams occur, then would take capsule at 9 am. 60 capsule 1 08/04/2023 Active naproxen 500 mg oral tablet (20 sources) Nonsteroidal Anti-inflammatory Drug Start: 08-01-2021 End: 01-02-2022 take 1 tablet by mouth [...] (10 sources) Dihydropyridine Calcium Channel Blanka Start: 11-09-2022 End: 12-09-2022 take 1 tablet by mouth once daily NIFEdipine XL (ADALAT CC) 30 mg 24 hr tablet Take 1 tablet by mouth once daily. 30 tablet 0 11/09/2022 12/06/2022 Discontinued (Erroneous entry) Comment on above: Take 1 tablet by robinson th once daily. nutritional supplements (NUTREN 1.5) 0.07 gram-1.5 kcal/mL liqd (13 sources) Start: 05-26-2023 End: 06-09-2023 nutritional supplements (NUTREN 1.5) 0.07 gram-1.5 kcal/mL liqd TF for PEG-J Rate: 45cc/hr 83487 mL 1 05/26/2023 06/09/2023 Discontinued Start: 05-26-2023 nutritional nance pplements (NUTREN 1.5) 0.07 gram-1.5 kcal/mL liqd TF for PEG-J Rate: 45cc/hr 04101 mL 1 05/26/2023 Active Start: 05-21-2023 End: [...] mg = 1 tab(s), Oral, Daily, # 90 tab(s), Refills(s) 3, Pharmacy: [facility] #[id number], 167, cm, 05/17/23 14:25:00 EDT, Height/Length Dosing, 81, kg, 05/17/23 14:25:00 EDT, Weight Dosing Start Date: 05/31/23 Status: Ordered Start: 05-14-2023 take 1 tablet by robinson th once daily Pantoprazole [address] Tab 40 mg = 1 tab(s), Oral, Daily, # 30 tab(s), Refills(s) 0, Pharmacy: [facility] #[id number], 167, cm, 05/12/23 9:37:00 EDT, Height/Length [...] Start: 01-30-2022 take 2 tablets by mo [facility] every six hours as needed prochlorperazine [...] on above: Take 2 tablets by mo [facility] every 6 hours as needed. Take 1 tablet by [facility] every 6 hours for 14 days. promethazine [...] Comment on above: Take 2 tablets by [facility] daily at bedtime. decrease the dose or stop for diarrhea simethicone 80 mg chewable tablet (9 sources) Start: 06-24-19 End: 09-23-19 take 2 tablets by mouth every six hours as needed simethicone, chewable (MYLICON) 80 mg chewable tablet Take 2 tablets by mouth four times daily as needed. 120 tablet 1 06/23/2022 09/22/2022 Discontinued Comment on above: Take 2 tablets by mo [facility] four times daily as needed. solifenacin succinate [...] Acute and unspecified renal failure (3 sources) [id number] renal failure; Translations: [Acute kidney failure, unspecified] [...] Resolved: 3 11-06-2022 Chronic Biliary tract disease (15 sources) Gallstone 07-29-2022 Episodic Calculus of urinary tract (20 sources) Kidney stone; Translations: [Calculus of kidney] Onset: 3 06-24-2022 Episodic Chronic obstructive pulmonary disease and bronchiectasis (11 sources) Bronchitis 12-29-2022 Episodic Complication of device; [...] tooth; Translations: [Periapical abscess without sinus] Episodic Endometriosis (1 source) Endometriosis (clinical); Translations: [Endometriosis, unspecified] 10-13-2023 Chronic Esophageal disorders (20 sources) Gastroesophageal reflux [...] 03-13-2021 Chronic Genitourinary symptoms and ill-defined conditions (16 sources) Mixed incontinence; Translations: [Incontinence] Onset: 3 [...] sources) Fatigue; Translations: [Chronic fatigue, unspecified] Chronic Malaise and fatigue (20 sources) Malaise and fatigue; Translations: [Other malaise] Onset: 0 10-06-2019 Episodic Miscellaneous mental health disorders (15 sources) Primary insomnia; Translations: [Primary insomnia] Onset: 1 Resolved: 1 Chronic Mood disorders (20 sources) Depressive disorder; Translations: [Depression, controlled] Onset: 0 Resolved: 4 01-03-2020 Chronic Mood disorders (1 source) Mood disorders; Translations: [Anxiety and depression] Onset: 3 Nonspecific chest pain (3 sources) Chest pain; Translations: [Chest pain, unspecified] Onset: 3 Episodic Nutritional deficiencies (20 sources) Deficiency of macronutrients; Translations: [Mild protein-calorie malnutrition] Onset: 1 04-08-2020 Chronic Nutritional deficiencies (1 source) Dietary zinc deficiency; Translations: [Dietary zinc deficiency] 04-07-2023 Episodic Osteoarthritis (20 sources) Degenerative joint disease involving multiple joints; Translations: [Polyosteoarthritis, unspecified] Onset: 4 Chronic Other aftercare (1 source) Other halfway (current) 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; Translations: [OTH LONGTERM CURRENT DRUG THERAPY] Onset: 3 Episodic Other aftercare (2 sources) Surgical follow-up; Translations: [Encounter for surgical aftercare following surgery on the digestive system] 09-18-2022 Episodic Other aftercare (18 sources) Drug therapy finding; Translations: [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 systemic steroids] Onset: 4 10-06-2023 Episodic Other aftercare (1 source) 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 systemic 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; Translations: [Current use of steroid medication] Onset: 4 Episodic Other circulatory disease (20 sources) Celiac artery compression syndrome; 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] Onset: 3 11-25-2022 Chronic Other circulatory disease (7 sources) Celiac artery compression syndrome; 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)] Onset: 3 Chronic Other circulatory disease (20 sources) Idiopathic hypotension; Translations: [Idiopathic hypotension] Onset: 4 08-06-2023 Episodic Other circulatory disease (1 source) Idiopathic hypotension; Translations: [Idiopathic hypotension] Onset: 4 Episodic Other connective tissue disease (9 sources) Neuropathy; Translations: [Neuralgia and neuritis, unspecified] 01-08-2023 Episodic Other connective tissue disease (1 source) Spasm; Translations: [Other muscle spasm] Onset: 4 Episodic Other diseases of kidney and ureters (1 source) Acquired renal cyst without neoplastic change; Translations: [Cyst of kidney, acquired] Onset: 3 Episodic Other diseases of kidney and ureters (20 sources) Cyst of kidney 07-29-2022 Episodic Other diseases of veins and lymphatics (1 source) Renal vascular disorder; Translations: [Compression of vein] 11-04-2023 Episodic Other disorders of stomach and duodenum (8 sources) Gastroparesis syndrome 03-24-2023 Episodic Other endocrine [...] unspecified; Translations: [Hypoglycemia] Onset: 4 Chronic Other endocrine disorders (1 source) Hypoglycemia; Translations: [Hypoglycemia, unspecified] 10-13-2023 Chronic Other endocrine disorders (1 source) Hypoadrenalism; Translations: [Unspecified adrenocortical insufficiency] 10-13-2023 Chronic Other eye disorders (1 source) Pain in eye; Translations: [Ocular pain, unspecified eye] Episodic Other gastrointestinal disorders (6 sources) Abnormal intestinal absorption; Translations: [Intestinal malabsorption, unspecified] Onset: 4 09-18-2022 Chronic Other gastrointestinal disorders (20 sources) [...] Translations: [Diarrhea, unspecified] Onset: 3 Episodic Other gastrointestinal disorders (1 source) Abnormal defecation; Translations: [Other specified symptoms and signs involving the digestive system and abdomen] 10-13-2023 Episodic Other liver diseases (1 source) Enzyme [...] Chronic Other nutritional; endocrine; and metabolic disorders (19 sources) Body mass index 30+ - obesity 05-05-2022 Chronic Other nutritional; endocrine; and metabolic disorders (19 sources) Metabolic syndrome X 04-22-2022 Chronic Other [...] - overweight; Translations: [Overweight] 09-28-2022 Episodic Other screening for suspected conditions (not mental disorders or infectious disease) (20 sources) Imaging of liver abnormal; Translations: [Abnormal findings on diagnostic imaging of liver and biliary tract] Onset: 1 04-08-2020 Episodic Other skin disorders (4 sources) Hirsutism; Translations: [Hirsutism] Episodic Other skin disorders (20 sources) Eruption; Translations: [Rash and other nonspecific skin eruption] Onset: 3 Resolved: 4 Episodic Other upper respiratory disease (19 sources) Allergic rhinitis 04-22-2022 Chronic Other upper respiratory infections (5 sources) Other chronic sinusitis; Translations: [Chronic sinusitis, unspecified] Onset: 2 Chronic Otitis media and related conditions (10 sources) Otitis media of left ear 02-03-2023 [...] (adult) (pediatric); Translations: [RICHAR on CPAP] Onset: 3 Chronic Residual codes; unclassified (1 source) History of syncope; Translations: [Personal history of other specified conditions] Episodic Residual codes; unclassified (1 source) Edema of face ; Translations: [Localized edema] Episodic Residual codes; unclassified (1 source) History of partial gastrectomy; Translations: [Acquired absence of stomach [part of]] 07-19-2023 Episodic Residual codes; unclassified (2 sources) History of placement of gastrostomy tube 06-02-2023 Episodic Residual codes; unclassified (1 source) Other specified health status; Translations: [On total parenteral nutrition (TPN)] Onset: 4 Episodic Sprains and strains (12 sources) Acetabular labrum tear; Translations: [Other sprain of right hip, initial encounter] Onset: 2 Episodic Substance-related disorders (1 source) Cannabis misuse; Translations: [Cannabis use, unspecified, uncomplicated] Onset: 4 Episodic Superficial injury; contusion (1 source) Contusion of right thumb; Translations: [Contusion of right thumb without damage to nail, initial encounter] Episodic Thyroid disorders (20 sources) Hypothyroidism; Translations: [Hypothyroidism, unspecified] Onset: 1 Resolved: 1 04-08-2020 Chronic Unclassified (1 source) NO SHOW Unclassified (1 source) Feeding difficulties; Translations: [Feeding difficulties] Onset: 3 Unclassified (1 source) Sent By Md Onset: 4 Unclassified (1 source) Dry cough; Translations: [Dry cough] Onset: 4 Unclassified (2 sources) refferal Onset: 3 Past [...] unspecified cause Onset: 08-17-2021 Resolved: 08-17-2021 Episodic Aspiration pneumonitis; food/vomitus (20 sources) Pneumonitis due to inhalation of vomitus; Translations: [Pneumonitis due to inhalation of food and vomit] Onset: 08-04-2023 08-04-2023 Episodic Conditions associated with dizziness or vertigo [...] Onset: 10-06-2019 Episodic Fever of unknown origin (5 sources) Feeling feverish; Translations: [Fever, unspecified] Onset: 10-04-2021 Episodic Fluid and electrolyte disorders (20 sources) Hypokalemia; Translations: [Dehydration] Onset: 10-23-2022 11-04-2022 Episodic Genitourinary symptoms and ill-defined conditions (6 sources) Increased frequency of urination; Translations: [Frequency of micturition] Onset: 06-18-2023 07-06-2023 Episodic Immunizations and screening for infectious disease (4 sources) Encounter for screening for infections with a predominantly sexual mode of transmission; Translations: [ENC SCREEN INFECTIONS SEXL TRANSMS] Onset: 07-30-2021 Episodic Nausea and vomiting (20 sources) Nausea; [...] 10-26-2022 Resolved: 08-08-2023 Episodic Other gastrointestinal disorders (15 sources) Bariatric surgery status; Translations: [Bariatric surgery [...] loss; Translations: [Weight loss] Onset: 12-06-2022 Episodic Ovarian cyst (5 sources) Complex ovarian cyst; Translations: [Other ovarian cyst, unspecified side] Onset: 03-02-2022 Episodic Residual codes; unclassified (2 sources) Other specified postprocedural states; Translations: [OTH SPECIFIED POSTPROCEDURAL STATES] Onset: 07-15-2021 Episodic Residual codes; unclassified (2 sources) Acquired absence of other specified parts of digestive tract; Translations: [History of cholecystectomy] Onset: 10-25-2022 Episodic Spondylosis; intervertebral disc disorders; other back problems (20 sources) Chronic low back pain; Translations: [Chronic bilateral low back pain without sciatica] Onset: 10-06-2019 Resolved: 08-07-2023 10-06-2019 Episodic Syncope (20 sources) Syncope and collapse; Translations: [Syncope and collapse] Onset: 06-10-2022 Episodic Unclassified (7 sources) Onset: 01-14-2023 Resolved: 06-22-2023 01-14-2023 Results Test Name Value Interpretation Reference Range Facil ity CNPNon 11-04-2023 CNPN Normal [facility] ED Clinical Summaryon 2023 ED Clinical Summary Normal [facility] ED Note-Physicianon 11-04-19 ED Note-Physician Normal [facility] Comment on above: Result Comment: Elec tronically Signed By: Lonnie Rios PA-C\.br\Date and Time Signed: 11/04/23 14:47 EDT\.br\Electronically Co-Signed By: sAhutosh Albright M.D.\.br\Date and Time Co-Signed: 11/04/23 19:15 EDT ED Patient Education Noteon 11-04-2023 ED Patient Education Note Normal [facility] ED Patient Summaryon 024 ED Patient Summary Normal [facility] Pre-Arrival Noteon Pre-Arrival Note Normal [facility] XR Chest Single Viewon 11-03 XR Chest Single View Normal [facility] SURGICAL PATHOLOGYOrdered By : Bryce Choi on 11-02-2023 Case Report Surgical Pathology Report Case: [id number] Authorizing Provider: Chichi Miller Collected: 11/01/2023 08:17 AM MD Jakob Ordering Location: Gastroenterology Received: 11/01/2023 12:09 PM Pathologist: Bryce Choi MD Specimen: Stomach, Biopsy, gastric biopsy [facility] Work Phone: FINAL DIAGNOSIS o8jbmYBzMFGqqMIoPMd wMlxhbnNpXHNwbHRwZ3 FykveyIZdoGQ7zRT6ms GxhdHRveWVuXGRlZmYw k2gku602zPJto3cgPJJ PqarizDl1kHizP29gm5 R3NwnyX68hwXJvWEZ4H TIyNDBccGFwZXJoMTU4 HSMwpOBkP5gvPKZtWD9 hcmdyMTgwMFxtYXJndD I5PASuuTVvU6UgGEGsJ PjiJRYozfp4NiEiTe8a dGVyeTcyMFxwYXJkXHB uIEesXCIiBrQtQ5XlnO PvsSrqYffzbKA3AssfM MBnQHGPwInhdFbtZE69 G66zNKT0wSJeIX5tqgA wZWNpZmljIGxhbWluYS Ocau1innhlKHAwAT8vC GFuZCBubyBvdGhlciBk bUYvtn5kgAbiHKJorDV yNEKcw07oSVJlajZwCJ 8zXI4wkgSjf5guA1zoV TF0aWAvfjXqIR7hZKdy uFzlr3TfE6MfosKddNp epfqmy5YiIV0jj27sOn xwYXJ9 [facility] Work Phone: Gross Description i1hcuYNiUCEilUCGHMK 5MGGfEG5grKimgMf2bU rvLZCcchG4vNYsJIpcp 0xsZLU3v5xxebOPRzya RAAwMM2nFVmgZAQjXZ8 nZmUwXGRlZmYxXHBhcG VydzEyMjQwXHBhcGVya PY6CMWbQD7upbilGGlz ZAfvVDMyvqH3EXAnsJK oV9LxGDEgPU5coyecPK T5IKCAVlrqQo4rbUQvc HtcZjFcZmNoYXJzZXQw YGKwx2bpmtNNvjzrfNj 8xN5WMKJoB7QkQW5Ry1 kzAHOurOHzSLV4TIbhl 4ygUPzdPHK6ZGCmYPFf FDCvLA5CXoTfSEteOLF 6ZCM3HaZ5SWs2FGDMLR CzYEC6Bgl6HJDeSXv1I TkgXFxuaCBcXHQgMSBc RQJyDAawrlM7n6shRXI hqJRgLCP1CNqdx8ojPN urREZ2TDVjLbTbVFDgP H5ZUvZsXUjoBVT2LMS1 SjU9FXz4ZOPLDtZuOwP qINxgKTFkPWstYVt7BY r4FLfCNjAbArj5TcXpU EXgEhK8ARPnLfTeVQIo MiBcXHNzIDMgXFxmbCB wDN2nrCipEXKoVC0UVL UxJEnbPCUgEvCjVD6kH 5EwwTPlpMhqXsluhIN6 HRr1irEuHQHkijPRMyu cBAMuTB8TIBWnSNznBY d4qxFcZYLbRfPqPSJhR 74cw4YBu4AwDD3NCKm4 cnBhciANClxmczIwIFJ gV9VvgmCbRUbaNYNkhd 5xkYnlQBEhRNNmpCv1w GGfWOXyaCRtHLItv4Kc sNVhOKUyr2J5VRYqk9G 5GOKpU2qhUImopZofOr K1mpGpBiHayLOaEcRjj ZZqXsLyI60qOOKxiNLs fIwbw3IgmJd9mDIuXTo mCQ7nNFIbUCZrKST0IX 4gXHBhciANClxwYXIgD EjQeb5fipJrxWEkhR0i aFktghPvNAUmx8HuOEW aTQUcF0yujiQaNF1fGY VdaE8vYfuyJTJoLIBCs MFcmPZlPSBsOtilL0yg dmFtTT8hIMRAUFQ4JSQ 5NVxwYXIgDQpccGFyIA 7HFT1YQDLqxRXlzBTbi iAxNiwgMjAyNCAyOjE2 IFBNXHBhciANClxzYTM jWRAblGLRe8FnPIBMIf frgXitDsQvfDXtDbW1G KXotBJbUGD7KW2vlLzj EZYuP1AtK8DrhjG2EJA pktHQKshmKEQrHG6HIS ZzMjIgDQp9 [facility] Work Phone: Performing Lab h7snxXOxMIAqrWFaHdJ cIVQwWFLpz0rmTJYpoR FuZzEwMzNcZnRuYmpcd GHhQFVvDhDfg3pfv152 rMPrw6wkKMTfRaJ3cGY nOLMmuFWuJ397HLMsOL fct7ukt1IqPGXrtXMyp 8G4GSPGofbwvTk5yRlt P06lb3L0LangU1opLNT jYPXvE9OjXX4pDEIxSy g2WVR6FSM3DNEbWZKrZ 6UqLJ3sBJJwkIDhVPz2 u8fqfTezFFNzGDN4x9f eRRiairKtHO1eda0nxE k7q2mudwMyUNYpSWNbg EVKMMZtZ2EviIljGm4y wHl7eXctVfcaOCQ4Rlu 4TA2ttb05ybk6vYwiLX MamijhSsA8YWzuSXMza odcFEm2NGnsEXJhhHN6 HOEzzPElM4AzKGblXG4 ffro4DJY9GRfsJEJdJs H0CRJjwIUyGTKgvUuvQ Qpeh083HJH2DyWjIT1g X1Kuk9P8mH5wyEWiIIB aqNNoKfWoACAchu2vdR CdDOwwp8VySLP4izE6i HXvzLRaOIAhRF00Oode m5EkOqykr8UeA36xnYA 6QOkrv5jpQH3dXlK6gj HxOBptp9mcxX0cTrW2Z GyhQI3iOD8zKCCpkP1c cmxjXHBnYnJkcmhlYWR xtLengiKkHq3ogNzgIA C7HIgkC0yorT1uQlN8V DirR1kddE1eIQk3YRny fJP0TSHvxC0nQL1nzbo uc1yfORspRWddKJExan F1kfIaNSDpmAGtJ5Cwv F1eYIUbPV3ypoelr0ji NTP3WZxnLBMvGZP4IhK nAVXdo7Mjfmb0ZbVif5 VnwYPyJPweO45hm479Y YEhzrEqF9oxpALutral bBXqsypgQXcnajP5DRB sXHBsYWluXGYxXGZzMj BcbGFuZzEwMzNcaGlja FxmMVxkYmNoXGYxXGxv C6uwBdTvCkCyUDFBbAR dti7quPjcSVhagBImpZ ZpbER6nQ5jIAXlpuPkj i5uGVPxbOCIpUW9ZYiv cfHvS9ajtvdjPYS2ACY qIDZ0I6bzUHCBprBhOQ CaEAEheAKaZMIAIOB8D ST2YEVmAVPAOPTnCDC5 IKE2IDFjFLBvqPYzAVK hclxwYXJkXHBsYWluXG EkTHRjMhRnsVjqaK6xV gLsWnTzWLjsON1eYLHs K8zzyDUiDYJjMTGyC5w gNxNgiJ6jmIobVCepLk JcZnMyMFxsdHJjaCBMY RKurhX9s1P9GWmjoXFe blxmMVxmczIwXGxhbmc nBLJcTVpyR0uuHvSoMI WzxDisXKpqh9TwYNGdQ YTrEjTwUQguYCJ9o1A2 IFdhbHRlciBILiBIZW5 knWSlzrmtSF0FQzsivF FpblxmMVxmczIyXGxhb aniYDHxMHydX4rzAyAn XJUjsOtmHVlec2QkZTU xXGZzMjJccGFyfQ== [facility] Work Phone: [facility] Work Phone: ANES POSTPROC EVALon 024 ANES POSTPROC EVAL Normal [facility] ANES PRE-OPon 11-01-2023 ANES PRE-OP Normal [facility] EGD Study observation Narrat iveon 11-01-2023 [facility] Radiology Study observation (narrative) [facility] GLUCOSE, BLOOD (POC)on 10-31 Glucose [Mass/Vol] 76 mg/dL 74 - 99 mg/dL [facility] Comment on above: Location:[facility], [address] [place] [address], [facility] The Accu-Chek Inform II glucose meter has not been approved for testing on patients receiving intensive medical intervention or therapy and results from this point of care glucose test should not be used for patient management decisions in these cases. Inaccurate results may also occur from other interfering factors, such as N-acetylcysteine (blood concentrations of greater than 5mg/dL), galactose, extremes of hematocrit (<10 or >65), or high doses of ascorbic acid (vitamin C) greater than 3mg/dL. Consider alternate testing mechanisms (e.g. core lab, blood gas instrument) in the above situations. [facility] NURSING PROGon 11-01-2023 NURSING PROG Normal [facility] NURSING PROG Normal [facility] SURGICAL PATHOLOGYon 024 CASE REPORT Normal [facility] Comment on above: Order Comment: Speci men Type: TISSUE SPECIMENOrdering Facility: [facility] Address: [address] [place] [address] Result Comment: Surg ica Pathology Report Case: [id number] Provider: Chichi Miller Collected: 11/01/2023 08:17 AM MD JakobOrdering Location: Gastroenterology Received: 11/01/2023 12:09 PMPathologist: Bryce Choi MDSpecimen: Stomach, Biopsy, gastric biopsy Performed By: #### S ####[facility] LABCLIA [id number] [address] OF [facility] FINAL DIAGNOSIS Normal [facility] Comment on above: Order Comment: Speci men Type: TISSUE SPECIMENOrdering Facility: [facility] Address: [address] [place] [address] Result Comment: Stom ach, biopsy:- Oxyntic mucosa with nonspecific lamina propria edema and no other diagnostic alteration.- No morphologic evidence of Helicobacter pylori organisms. Performed By: #### S ####[facility] LABCL[facility] [id number] [address] OF [facility] FINAL PERFORMING LAB Normal [facility] Comment on above: Order Comment: Speci men Type: TISSUE SPECIMENOrdering Facility: [facility] Address: [address] [place] [address] Result Comment: Diag nostic interpretation performed at [facility], [address] [place] [address] CLIA# [id number] Director: Jaren Agrawal M.D. Performed By: #### S ####[facility] LABIA [id number] [address] [place] GROSS DESCRIPTION Normal [facility] Comment on above: Order Comment: Speci men Type: TISSUE SPECIMENOrdering Facility: [facility] Address: [address] [place] [address] Result Comment: A. S tomach, BiopsyReceived in formalin are multiple pieces of renner, soft tissue aggregating to 1.0 x 0.3 x 0.1 cm. Totally submitted in one cassette.Gross examination performed at [facility], [address] [place] [address] November 01, 2023 2:16 PM Performed By: #### S ####[facility]ENTER[facility] [id number] [address] OF [place] TPN FORMULA FLOW PRESCRIPTIO Non 11-01-2023 --- PN/EN Formula Flow [facility]CF #: [id number] Patient Name: ABBEY GARCIA Patient Date of : 1990 Physician: EGORGINA CARRILLO MD Clinician: Diana Wood Date of Prescription: 11/01/2023 --- Amino Acids Solution: 15% amino acids 15% Amino Acids (g): 90 Amino Acid %: 3.9 Amino Acids (KCal/Day): 360 Amino Acids (g/L): 39.1 Dextrose (g): 280 Dextrose (KCal/Day): 952 Dextrose (g/L): 122 Fat Emulsion Solution: Intralipid 2 Fat Percentage (%): 20 Fat Emul. Concentrate (ml): 250 Fat Emulsion (KCal/Day): 286 Fat Emulsion (g/L): 22 2 in 1 days/wk: 3 3 in 1 days/wk: 4 Total KCal w/Fat/Day: 1598 KCal/k.1 Grams Protein/k.1 Water for Injection (ml): 1196 (DOWN) HPN Volume (ml): 2300 Calcium Gluconate (mEq): 10 Magnesium Sulfate (mEq): 18 Potassium Phosphate (mEq): 0 Sodium Phosphate (mEq): 52 (UP) Glyco Phosphate (mEq): 0 Potassium Chloride (mEq): 0 Potassium Acetate (mEq): 75 Sodium Chloride (mEq): 0 Sodium Acetate (mEq): 55 Multiple Vitamin Solution: MVI Adult Multiple Vitamins (ml): 10 Vitamin K (Days): 0 Vitamin K (mg): 0 Mult Trace Elemts Solution: Tralement Mult. Trace Elemts (ml): 1 Chromium (mcg): 0 Copper (mg): 0 Manganese (mg): 0 Selenium (mcg): 0 Zinc (mg): 0 Heparin (units): 0 Insulin (units): 0 H2 Antagonist: H2 (mg): 0 Octreotide (mcg): 0 PN Infus Days (per wk): 7 PN Infus Hrs (per day): 16 Taper Up (hrs): 1 Taper Down (hrs): 2 IVF Solution: IVF Volume (ml): IVF Infus Days/wk: --- Other Desc. 1: 0.45% Sodium Chloride Other Qty./Day 1: 1000 Other Unit 1: mL Other Days/wk 1: prn for dehydration --- Ethanol Lock: Yes [facility]: [facility] Comments: On lipid days remove 250 mL free water and replace with 250 mL intralipid --- TPN Physician Orders: MMA: due date: 10/19/23 (OVERDUE) Comments: Chromium: due date: 10/19/23 (OVERDUE) Comments: Manganese (Whole Blood): due date: 10/19/23 (OVERDUE) Comments: Selenium: due date: 10/19/23 (OVERDUE) Comments: Copper: due date: 10/19/23 (OVERDUE) Comments: Zinc: due date: 10/19/23 (OVERDUE) Comments: HGB A1C: due date: 10/19/23 (OVERDUE) Comments: TrieneTetraene Ratio: due date: 10/19/23 (OVERDUE) Comments: Avoidance of dietary fat by mouth and IV fat emulsion for 8-12 hours before blood draw. If PN is ordered, instruct patient to infuse a 2-in-1 PN solution that does not contain lipids the 12 hours before lab is to be drawn. Vitamin E: due date: 10/19/23 (OVERDUE) Comments: Avoidance of oral and IV vitamins 12 hours before blood draw is required. If PN ordered, Instruct patient not to inject Multivitamin into PN solution the 12 hours before vitamin lab is to be drawn. Vitamin B6: due date: 10/19/23 (OVERDUE) Comments: Avoidance of oral and IV vitamins 24 hours before blood draw is required. If PN ordered, instruct patient not to inject Multivitamin into PN solution the 12 hours before vitamin lab is to be drawn. Vitamin A: due date: 10/19/23 (OVERDUE) Comments: Avoidance of oral and IV vitamins 12 hours before blood draw is required. If PN ordered, Instruct patient not to inject Multivitamin into PN solution the 12 hours before vitamin lab is to be drawn. Vitamin B12: due date: 10/19/23 (OVERDUE) Comments: CMP: due date: 11/08/23 Comments: CBC: due date: 11/08/23 Comments: Mg: due date: 11/08/23 Comments: PO4: due date: 11/08/23 Comments: --- Physician Comments: --- (UP), (DOWN), and (*) indicate change from last formula flow ------ (more content not included)... OTHER LAB Upper GI endoscopyon Upper GI endoscopy Normal [facility] BRIEF OP NOTon 10-15-2023 BRIEF OP NOT Normal [facility] IR CENTRAL CATH PLACEMENTon 10-15-2023 IR CENTRAL CATH PLACEMENT Normal [facility] NURSING PROGon 10-15-2023 NURSING PROG Normal [facility] PT EDon 10-15-2023 PT ED Normal [facility] CNCNPATEDon 10-13-2023 CNCNPATED Normal [facility] CNOVon 10-13-2023 CNOV Normal [facility] NURSING PROGon 10-13-2023 NURSING PROG Normal [facility] Albumin SerPl-mCncon 024 Albumin [Mass/Vol] 3.7 g/dL Low 3.9-4.9 [facility] Comment on above: Order Comment: Speci men Type: BLOOD SPECIMENOrdering Facility: [facility] Address: [address] [place], [place] [address] [address] Performed By: #### 1 751-7, 12533-3, 35199-7, 8 ####[facility] LABORATORYCLIA [id number] [place] [address] [place] Basic metabolic 2000 panelon 10-12-2023 Anion gap [Moles/Vol] 11 mmol/L Normal 8-15 [facility] Comment on above: Order Comment: Speci men Type: BLOOD SPECIMENOrdering Facility: [facility] Address: [address] [place] [address] Performed By: #### 1 751-7, 70358-1, , 2570-09 ####[facility]ITAL[facility]IA [id number] [place] [address] [place] Calcium [Mass/Vol] 8.4 mg/dL Low 8.5-10.2 [facility] Comment on above: Order Comment: Speci men Type: BLOOD SPECIMENOrdering Facility: [facility] Address: [address] [place] [address] Performed By: #### 1 751-7, 28183-7, , 2570-09 ####[facility] H[facility]PITALCLIA [id number] [place] [address] [place] Chloride [Moles/Vol] 108 mmol/L High 98-107 [facility] Comment on above: Order Comment: Speci men Type: BLOOD SPECIMENOrdering Facility: [facility] Address: [address] [place] [address] Performed By: #### 1 751-7, 73593-3, , 2570-09 ####[facility] LABORATORYIA [id number] [place] [address] [place] CO2 [Moles/Vol] 24 mmol/L Normal 22-30 [facility] Comment on above: Order Comment: Speci men Type: BLOOD SPECIMENOrdering Facility: [facility] Address: [address] [id number] Performed By: #### 1 751-7, 65356-0, , 2570-09 ####[facility] LABORATORYCLIA [id number] [facility] [place] [address] [place] Creatinine [Mass/Vol] 0.68 mg/dL Normal 0.58-0.96 [facility] Comment on above: Order Comment: Speci men Type: BLOOD SPECIMENOrdering Facility: [facility] Address: [address] [place], [place] [address] Performed By: #### 1 751-7, 49778-5, , 2570-09 ####[facility] LABORATORYCLIA [id number] [facility] [place] [address] [place] Creatinine and Glomerular filtration rate.predicted panel (S/P/Bld) 117 mL/min/1.73m??? Normal >=60 [facility] Comment on above: Order Comment: Speci [facility] Type: BLOOD SPECIMENOrdering Facility: [facility] Address: [address] [place] [address] Result Comment: Jessica mated Glomerular Filtration Rate [...] reflect actual GFR. Performed By: #### 1 751-7, 74472-7, , 2570-09 ####[facility] LABORATORYCLIA [id number] [facility] [place] [address] [place] Glucose [Mass/Vol] 54 mg/dL Low 74-99 [facility] Comment on above: Order Comment: Speci [facility] Type: BLOOD SPECIMENOrdering Facility: [facility] Address: [address] [place] [address] Result Comment: The [place] Diabetes Association (ADA) provides guidance for cutoff [...] Standards of Medical Care in Diabetes 2016, [place] [employer] Association. Diabetes Care. 2016.39(Suppl 1). Performed By: #### 1 751-7, 06388-8, 90604-4, 2570-09 ####[facility] LABORATORYCLIA [id number] [place] [address] [place] Potassium [Moles/Vol] 3.7 mmol/L Normal 3.7-5.1 [facility] Comment on above: Order Comment: Speci men Type: BLOOD SPECIMENOrdering Facility: [facility] Address: [address] [place] [address] Performed By: #### 1 751-7, 64943-5, , 2570-09 ####[facility] LABORATORYCLIA [id number] [place] [address] [place] Sodium [Moles/Vol] 143 mmol/L Normal 136-144 [facility]ital Comment on above: Order Comment: Speci men Type: BLOOD SPECIMENOrdering Facility: [facility] Address: [address] [place] [address] Performed By: #### 1 751-7, 98195-1, , 2570-09 ####[facility] LABORATORYCLIA [id number] [place] [address] [place] Urea nitrogen [Mass/Vol] 7 mg/dL Normal 7-21 [facility] Comment on above: Order Comment: Speci men Type: BLOOD SPECIMENOrdering Facility: [facility] Address: [address] [place] [address] Performed By: #### 1 751-7, 28760-1, 92192-8, 2571-8 ####[facility]PITALIA [id number] [place] [address] [place] CASE MANAGEMon 10-12-2023 CASE MANAGEM Normal [facility] CBC panel Auto (Bld)on 10-11 Erythrocyte distribution width (RBC) [Ratio] 15.1 % High 11.5-15.0 [facility] Comment on above: Order Comment: Speci men Type: BLOOD SPECIMENOrdering Facility: [facility] Address: [address] [place] [address] Performed By: #### 5 8410-2 ####[facility] [id number] [place] [address] [place] Hematocrit (Bld) [Volume fraction] 33.8 % Low 36.0-46.0 [facility] Comment on above: Order Comment: Speci men Type: BLOOD SPECIMENOrdering Facility: [facility] Address: [address] [place] [address] Performed By: #### 5 8410-2 ####[facility]ITALIA [id number] [place] [address] [place] Hemoglobin (Bld) [Mass/Vol] 10.7 g/dL Low 11.5-15.5 [facility] Comment on above: Order Comment: Speci men Type: BLOOD SPECIMENOrdering Facility: [facility] Address: [address] [place] [address] Performed By: #### 5 8410-2 ####[facility]PITALIA [id number] [place] [address] [place] MCH (RBC) [Entitic mass] 27.2 pg Normal 26.0-34.0 [facility] Comment on above: Order Comment: Speci men Type: BLOOD SPECIMENOrdering Facility: [facility] Address: [address] [place] [address] Performed By: #### 5 8410-2 ####[facility]PITALIA [id number] [place] [address] [place] MCHC (RBC) [Mass/Vol] 31.7 g/dL Normal 30.5-36.0 [facility] Comment on above: Order Comment: Speci men Type: BLOOD SPECIMENOrdering Facility: [facility] Address: [address] [place] [address] Performed By: #### 5 8410-2 ####[facility] [id number] [place] [address] [place] MCV (RBC) [Entitic vol] 85.8 fL Normal 80.0-100.0 [facility] Comment on above: Order Comment: Speci men Type: BLOOD SPECIMENOrdering Facility: [facility] Address: [address] [place] [address] Performed By: #### 5 8410-2 ####[facility] [id number] [place] [address] [place] Nucleated RBC (Bld) [#/Vol] 10*3/uL Normal <0.01 [facility] Comment on above: Order Comment: Speci men Type: BLOOD SPECIMENOrdering Facility: [facility] Address: [address] [place] [address] Performed By: #### 5 8410-2 ####[facility] [id number] [place] [address] [place] Platelet mean volume (Bld) [Entitic vol] 10.6 fL Normal 9.0-12.7 [facility] Comment on above: Order Comment: Speci men Type: BLOOD SPECIMENOrdering Facility: [facility] Address: [address] [place] [address] Performed By: #### 5 8410-2 ####[facility] [id number] [place] [address] [place] Platelets (Bld) [#/Vol] 204 10*3/uL Normal 150-400 [facility] Comment on above: Order Comment: Speci men Type: BLOOD SPECIMENOrdering Facility: [facility] Address: [address] [place], [place] [address] Performed By: #### 5 8410-2 ####[facility] LABORATORYIA [id number] [place] [address] [facility] RBC (Bld) [#/Vol] 3.94 10*6/uL Normal 3.90-5.20 [facility] Comment on above: Order Comment: Speci men Type: BLOOD SPECIMENOrdering Facility: [facility] Address: [address] [place], [place] [id number] Performed By: #### 5 8410-2 ####[facility] [id number] [place] [id number] [facility] WBC (Bld) [#/Vol] 3.70 10*3/uL Normal 3.70-11.00 [facility] Comment on above: Order Comment: Speci men Type: BLOOD SPECIMENOrdering Facility: [facility] Address: [address] [place] [address] Performed By: #### 5 8410-2 ####[facility] [id number] [place] [id number] [facility] [place] CNDSon 10-12-2023 CNDS [place] CONSULT PROGon 10-12-2023 CONSULT PROG [facility] l Magnesium [facility] Magnesium [Mass/Vol] 2.0 mg/dL Normal 1.7-2.3 [facility] Comment on above: Order Comment: Speci men Type: BLOOD SPECIMENOrdering Facility: [facility] Address: [address] [place], [place] [id number] Performed By: #### 1 751-7, 64180-7, 98071-1, 2571-8 ####[facility] LABORATORYIA [id number] [place] [address] [facility] [place] NUTRITIONon 10-12-2023 NUTRITION Normal [facility] Phosphate SerPl-ncon 10-11 Phosphate [Mass/Vol] 4.3 mg/dL Normal 2.7-4.8 [facility] Comment on above: Order Comment: Speci men Type: BLOOD SPECIMENOrdering Facility: [facility] Address: [address] [place] [address] Performed By: #### 2 777-1 ####[facility] LABORATORYCLIA [id number] [facility] [place] [address] [facility] [place] Trigl SerPl-mCncon Triglyceride [Mass/Vol] 103 mg/dL Normal <150 [facility] Comment on above: Order Comment: Speci men Type: BLOOD SPECIMENOrdering Facility: [facility] Address: [address] [place] [address] Result Comment: <150 mg/dL, Normal 150-199 mg/dL, Borderline high 200-499 mg/dL, High>499 mg/dL, Very highReference:1. National Cholesterol Education Program ATP III Guideline At-A-Glance Quick Desk Reference: National Heart, Lung, and Blood [place]. National Institutes of Health. 2001: NIH Publication No. 01-3305. Performed By: #### 1 751-7, 94737-5, 87940-5, 2570-8 ####[facility] LABORATORYCLIA [id number] [facility] [place] [address] [place] Triglyceride [Mass/Vol]on FASTING TIME 0 hrs Normal [facility] Comment on above: Order Comment: Speci men Type: BLOOD SPECIMENOrdering Facility: [facility] Address: [address] [place] [address] Result Comment: Pt i s on Intralipids and TPN Performed By: #### 1 751-7, 85511-5, 68566-9, 2570-8 ####[facility] LABORATORYCLIA [id number] [facility] [place] [address] [place] Basic metabolic 2000 panelon 10-11-2023 Anion gap [Moles/Vol] 11 mmol/L Normal 8-15 [facility] Comment on above: Order Comment: Speci men Type: BLOOD SPECIMENOrdering Facility: [facility] Address: [address] [place], [place] [address] Performed By: #### 2 4321-2, , 2776-02 ####[facility] LABORATORYCLIA [id number] [place] [address] [place] Calcium [Mass/Vol] 8.4 mg/dL Low 8.5-10.2 [facility] Comment on above: Order Comment: Speci men Type: BLOOD SPECIMENOrdering Facility: [facility] Address: [address] [place] [address] Performed By: #### 2 4321-2, , 2776-02 ####[facility] LABORATORYCLIA [id number] [place] [address] [place] Chloride [Moles/Vol] 105 mmol/L Normal 98-107 [facility] Comment on above: Order Comment: Speci men Type: BLOOD SPECIMENOrdering Facility: [facility] Address: [address] [place] [address] Performed By: #### 2 4321-2, , 2776-02 ####[facility]OSPITALIA [id number] [place] [address] [place] CO2 [Moles/Vol] 27 mmol/L Normal 22-30 [facility] Comment on above: Order Comment: Speci men Type: BLOOD SPECIMENOrdering Facility: [facility] Address: [address] [place] [address] Performed By: #### 2 4321-2, , 2776-02 ####[facility] LABORATORYIA [id number] [place] [address] [place] Creatinine [Mass/Vol] 0.81 mg/dL Normal 0.58-0.96 [facility] Comment on above: Order Comment: Speci men Type: BLOOD SPECIMENOrdering Facility: [facility] Address: [address] [place] [address] Performed By: #### 2 4321-2, , 2776-02 ####[facility] LABORATORYIA [id number] [facility] [place] [address] [place] Creatinine and Glomerular filtration rate.predicted panel (S/P/Bld) 98 mL/min/1.73m??? Normal >=60 [facility] Comment on above: Order Comment: Geraldo marrero Type: BLOOD SPECIMENOrdering Facility: [facility] Address: [address] [place] [address] Result Comment: Jessica mated Glomerular Filtration Rate [...] actual GFR. Performed By: #### 2 4321-2, 79872-0, 2776-02 ####[facility] LABORATORYCLIA [id number] [facility] [place] [address] [place] Glucose [Mass/Vol] 78 mg/dL Normal 74-99 [facility] Comment on above: Order Comment: [facility] Type: BLOOD SPECIMENOrdering Facility: [facility] Address: [address] [place] [address] Result Comment: The [place] Diabetes Association (ADA) provides guidance for cutoff [...] Standards of Medical Care in Diabetes 2016, [place] Diabetes Association. Diabetes Care. 2016.39(Suppl 1). Performed By: #### 2 4321-2, 76558-4, 2776- ####[facility] LABORATORYCLIA [id number] [facility] [place] [address] [place] Potassium [Moles/Vol] 4.2 mmol/L Normal 3.7-5.1 [facility] Comment on above: Order Comment: Speci men Type: BLOOD SPECIMENOrdering Facility: [facility] Address: [facility] [place] [address] Performed By: #### 2 4321-2, , 2776-02 ####[facility] LABORATORYCLIA [id number] [place] [address] [place] Sodium [Moles/Vol] 143 mmol/L Normal 136-144 [facility]ital Comment on above: Order Comment: Speci men Type: BLOOD SPECIMENOrdering Facility: [facility] Address: [address] [place] [address] Performed By: #### 2 4321-2, , 2776-02 ####[facility] HOSPITALCLIA [id number] [place] [address] [place] Urea nitrogen [Mass/Vol] 6 mg/dL Low 7-21 [facility] Comment on above: Order Comment: Speci men Type: BLOOD SPECIMENOrdering Facility: [facility] Address: [address] [place] [address] Performed By: #### 2 4321-2, , 2776-02 ####[facility] HOSPITALCLIA [id number] [place] [address] [place] CASE MGT INIT ASSESon 2023 CASE MGT INIT ASS Normal [facility] CBC panel Auto (Bld)on 10-10 Erythrocyte distribution width (RBC) [Ratio] 15.0 % Normal 11.5-15.0 [facility] Comment on above: Order Comment: Speci men Type: BLOOD SPECIMENOrdering Facility: [facility] Address: [address] [place] [address] Performed By: #### 5 8410-2 ####[facility] LABORATORYCLIA [id number] [place] [address] [place] Hematocrit (Bld) [Volume fraction] 30.8 % Low 36.0-46.0 [facility] Comment on above: Order Comment: Speci men Type: BLOOD SPECIMENOrdering Facility: [facility] Address: [address] [place] [address] Performed By: #### 5 8410-2 ####[facility] LABORATORYCLIA [id number] [place] [address] [place] Hemoglobin (Bld) [Mass/Vol] 10.0 g/dL Low 11.5-15.5 [facility] Comment on above: Order Comment: Speci men Type: BLOOD SPECIMENOrdering Facility: [facility] Address: [address] [place] [address] Performed By: #### 5 8410-2 ####[facility]PITALIA [id number] [place] [address] [place] MCH (RBC) [Entitic mass] 27.5 pg Normal 26.0-34.0 [facility] Comment on above: Order Comment: Speci men Type: BLOOD SPECIMENOrdering Facility: [facility] Address: [address] [place] [address] Performed By: #### 5 8410-2 ####[facility]OSPITALIA [id number] [place] [address] [place] MCHC (RBC) [Mass/Vol] 32.5 g/dL Normal 30.5-36.0 [facility] Comment on above: Order Comment: Speci men Type: BLOOD SPECIMENOrdering Facility: [facility] Address: [address] [place] [address] Performed By: #### 5 8410-2 ####[facility] LABORATORYIA [id number] [place] [id number] [place] MCV (RBC) [Entitic vol] 84.6 fL Normal 80.0-100.0 [facility] Comment on above: Order Comment: Speci men Type: BLOOD SPECIMENOrdering Facility: [facility] Address: [address] [place] [address] Performed By: #### 5 8410-2 ####[facility] LABORATORYCLIA [id number] [facility] [place] [address] [place] Nucleated RBC (Bld) [#/Vol] 10*3/uL Normal <0.01 [facility] Comment on above: Order Comment: Speci men Type: BLOOD SPECIMENOrdering Facility: [facility] Address: [address] [place] [address] Performed By: #### 5 8410-2 ####[facility] LABORATORYCLIA [id number] [facility] [place] [address] [place] Platelet mean volume (Bld) [Entitic vol] 10.5 fL Normal 9.0-12.7 [facility] Comment on above: Order Comment: Speci men Type: BLOOD SPECIMENOrdering Facility: [facility] Address: [address] [place] [address] Performed By: #### 5 8410-2 ####[facility]PITALIA [id number] [place] [address] [place] Platelets (Bld) [#/Vol] 206 10*3/uL Normal 150-400 [facility] Comment on above: Order Comment: Speci men Type: BLOOD SPECIMENOrdering Facility: [facility] Address: [address] [place] [address] Performed By: #### 5 8410-2 ####[facility] LABORATORYIA [id number] [facility] [place] [address] [place] RBC (Bld) [#/Vol] 3.64 10*6/uL Low 3.90-5.20 [facility] Comment on above: Order Comment: Speci men Type: BLOOD SPECIMENOrdering Facility: [facility] Address: [address] [place] [address] Performed By: #### 5 8410-2 ####[facility] LABORATORYIA [id number] [facility] [place] [address] [place] WBC (Bld) [#/Vol] 3.36 10*3/uL Low 3.70-11.00 [facility] Comment on above: Order Comment: Speci men Type: BLOOD SPECIMENOrdering Facility: [facility] Address: [address] [place] [address] Performed By: #### 5 8410-2 ####[facility] [id number] [place] [address] [place] CNPNon 10-11-2023 CNPN Normal [facility] CONSULTon 10-11-2023 CONSULT Normal [facility] ECG COMPLETEon 10-11-2023 ECG COMPLETE Normal [facility] 10-10 Magnesium [Mass/Vol] 2.1 mg/dL Normal 1.7-2.3 [facility] Comment on above: Order Comment: Speci men Type: BLOOD SPECIMENOrdering Facility: [facility] Address: [address] [place], [place] [address] Performed By: #### 2 4321-2, 05335-0, 2777-1 ####[facility] [id number] [place] [address] [place] NUTRITIONon 10-11-2023 NUTRITION [place] Phosphate SerPl-ncon 10-10 Phosphate [Mass/Vol] 4.3 mg/dL Normal 2.7-4.8 [facility] Comment on above: Order Comment: Speci men Type: BLOOD SPECIMENOrdering Facility: [facility] Address: [address] [place] [address] Performed By: #### 2 4321-2, 78342-2, 2777-1 ####[facility]ITALIA [id number] [place] [address] [place] XR ABD 2V SUPINE W UPR/DECUB /CTLon 10-11-2023 XR ABD 2V SUPINE W UPR/DECUB/CTL Normal [facility] CBC W Auto Differential pane l (Bld)on 10-10-2023 Basophils (Bld) [#/Vol] 10*3/uL Normal <0.11 [facility] Comment on above: Order Comment: Speci men Type: BLOOD SPECIMENOrdering Facility: [facility] Address: [address] [place] [address] Performed By: #### 5 7021-8 ####[facility] LABORATORYCLIA [id number] [place] [address] [place] Basophils/100 WBC (Bld) 0.4 % Normal [facility] Comment on above: Order Comment: Speci men Type: BLOOD SPECIMENOrdering Facility: [facility] Address: [address] [place] [address] Performed By: #### 5 7021-8 ####[facility] LABORATORYCLIA [id number] [place] [address] [place] Differential cell count method Nom (Bld) Auto Normal [facility] Comment on above: Order Comment: Speci men Type: BLOOD SPECIMENOrdering Facility: [facility] Address: [address] [place] [address] Performed By: #### 5 7021-8 ####[facility] LABORATORYIA [id number] [place] [id number] [place] Eosinophils (Bld) [#/Vol] 10*3/uL Normal <0.46 [facility] Comment on above: Order Comment: Speci men Type: BLOOD SPECIMENOrdering Facility: [facility] Address: [address] [place] [address] Performed By: #### 5 7021-8 ####[facility] LABORATORYIA [id number] [place] [id number] [place] Eosinophils/100 WBC (Bld) 0.0 % Normal [facility] Comment on above: Order Comment: Speci men Type: BLOOD SPECIMENOrdering Facility: [facility] Address: [address] [place] [address] Performed By: #### 5 7021-8 ####[facility] LABORATORYIA [id number] [place] [id number] [place] Erythrocyte distribution width (RBC) [Ratio] 14.7 % Normal 11.5-15.0 [facility] Comment on above: Order Comment: Speci men Type: BLOOD SPECIMENOrdering Facility: [facility] Address: [address] [place] [address] Performed By: #### 5 7021-8 ####[facility] LABORATORYCLIA [id number] [place] [address] [place] Hematocrit (Bld) [Volume fraction] 36.1 % Normal 36.0-46.0 [facility] Comment on above: Order Comment: Speci men Type: BLOOD SPECIMENOrdering Facility: [facility] Address: [address] [place] [address] Performed By: #### 5 7021-8 ####[facility] LABORATORYCLIA [id number] [place] [address] [place] Hemoglobin (Bld) [Mass/Vol] 11.4 g/dL Low 11.5-15.5 [facility] Comment on above: Order Comment: Speci men Type: BLOOD SPECIMENOrdering Facility: [facility] Address: [address] [place] [address] Performed By: #### 5 7021-8 ####[facility] LABORATORYCLIA [id number] [place] [address] [place] Immature granulocytes (Bld) [#/Vol] 10*3/uL Normal <0.10 [facility] Comment on above: Order Comment: Speci men Type: BLOOD SPECIMENOrdering Facility: [facility] Address: [address] [place] [address] Performed By: #### 5 7021-8 ####[facility] LABORATORYCLIA [id number] [facility] [id number] [place] Immature granulocytes/100 WBC (Bld) 0.4 % Normal [facility] Comment on above: Order Comment: Speci men Type: BLOOD SPECIMENOrdering Facility: [facility] Address: [address] [place] [address] Performed By: #### 5 7021-8 ####[facility] LABORATORYCLIA [id number] [facility] [place] [address] [place] Lymphocytes (Bld) [#/Vol] 0.77 10*3/uL Low 1.00-4.00 [facility] Comment on above: Order Comment: Speci men Type: BLOOD SPECIMENOrdering Facility: [facility] Address: [address] [place] [address] Performed By: #### 5 7021-8 ####[facility] LABORATORYIA [id number] [address] [place] Lymphocytes/100 WBC (Bld) 14.8 % Normal [facility] Comment on above: Order Comment: Speci men Type: BLOOD SPECIMENOrdering Facility: [facility] Address: [address] [place] [address] Performed By: #### 5 7021-8 ####[facility]PITALIA [id number] [place] [address] [place] MCH (RBC) [Entitic mass] 27.1 pg Normal 26.0-34.0 [facility] Comment on above: Order Comment: Speci men Type: BLOOD SPECIMENOrdering Facility: [facility] Address: [address] [place] [address] Performed By: #### 5 7021-8 ####[facility]ITALIA [id number] [address] [place] MCHC (RBC) [Mass/Vol] 31.6 g/dL Normal 30.5-36.0 [facility] Comment on above: Order Comment: Speci men Type: BLOOD SPECIMENOrdering Facility: [facility] Address: [address] [place] [address] Performed By: #### 5 7021-8 ####[facility]ITALIA [id number] [address] [place] MCV (RBC) [Entitic vol] 85.7 fL Normal 80.0-100.0 [facility] Comment on above: Order Comment: Speci men Type: BLOOD SPECIMENOrdering Facility: [facility] Address: [address] [place] [address] Performed By: #### 5 7021-8 ####[facility] LABORATORYIA [id number] [facility] [place] [address] [place] Monocytes (Bld) [#/Vol] 0.16 10*3/uL Normal <0.87 [facility] Comment on above: Order Comment: Speci men Type: BLOOD SPECIMENOrdering Facility: [facility] Address: [address] [place] [address] Performed By: #### 5 7021-8 ####[facility] LABORATORYCLIA [id number] [facility] [place] [address] [place] Monocytes/100 WBC (Bld) 3.1 % Normal [facility] Comment on above: Order Comment: Speci men Type: BLOOD SPECIMENOrdering Facility: [facility] Address: [address] [place] [address] Performed By: #### 5 7021-8 ####[facility] LABORATORYCLIA [id number] [facility] [place] [address] [place] Neutrophils (Bld) [#/Vol] 4.22 10*3/uL Normal 1.45-7.50 [facility] Comment on above: Order Comment: Speci men Type: BLOOD SPECIMENOrdering Facility: [facility] Address: [address] [place] [address] Performed By: #### 5 7021-8 ####[facility] LABORATORYIA [id number] [place] [address] [place] Neutrophils/100 WBC (Bld) 81.3 % Normal [facility] Comment on above: Order Comment: Speci men Type: BLOOD SPECIMENOrdering Facility: [facility] Address: [address] [place] [address] Performed By: #### 5 7021-8 ####[facility] LABORATORYIA [id number] [place] [address] [place] Nucleated RBC (Bld) [#/Vol] 10*3/uL Normal <0.01 [facility] Comment on above: Order Comment: Speci men Type: BLOOD SPECIMENOrdering Facility: [facility] Address: [address] [place] [address] Performed By: #### 5 7021-8 ####[facility] LABORATORYCLIA [id number] [place] [address] [place] Nucleated RBC/100 WBC (Bld) [Ratio] 0.0 /100 WBC Normal [facility] Comment on above: Order Comment: Speci men Type: BLOOD SPECIMENOrdering Facility: [facility] Address: [address] [place] [address] Performed By: #### 5 7021-8 ####[facility] LABORATORYCLIA [id number] [place] [address] [place] Platelet mean volume (Bld) [Entitic vol] 10.8 fL Normal 9.0-12.7 [facility] Comment on above: Order Comment: Speci men Type: BLOOD SPECIMENOrdering Facility: [facility] Address: [address] [place] [address] Performed By: #### 5 7021-8 ####[facility]ITALIA [id number] [place] [address] [place] Platelets (Bld) [#/Vol] 260 10*3/uL Normal 150-400 [facility] Comment on above: Order Comment: Speci men Type: BLOOD SPECIMENOrdering Facility: [facility] Address: [address] [place] [address] Performed By: #### 5 7021-8 ####[facility] LABORATORYIA [id number] [place] [address] [place] RBC (Bld) [#/Vol] 4.21 10*6/uL Normal 3.90-5.20 [facility] Comment on above: Order Comment: Speci men Type: BLOOD SPECIMENOrdering Facility: [facility] Address: [address] [place] [address] Performed By: #### 5 7021-8 ####[facility] LABORATORYIA [id number] [place] [address] [place] WBC (Bld) [#/Vol] 5.19 10*3/uL Normal 3.70-11.00 [facility] Comment on above: Order Comment: Speci men Type: BLOOD SPECIMENOrdering Facility: [facility] Address: [address] [place] [address] Performed By: #### 5 7021-8 ####[facility] LABORATORYCLIA [id number] [place] [address] [place] ABD/PEL W IVCONon 024 CT ABD/PEL W IVCON Normal [facility]ital Comprehensive metabolic 2000 panelon 10-10-2023 Albumin [Mass/Vol] 4.2 g/dL Normal 3.9-4.9 [facility] Comment on above: Order Comment: Speci men Type: BLOOD SPECIMENOrdering Facility: [facility] Address: [address] [place] [address] Performed By: #### 2 4323-8, 3040-3, 26770-4, 6-3 ####[facility] LABORATORYCLIA [id number] [facility] [place] [address] [place] ALP [Catalytic activity/Vol] 70 U/L Normal 34-123 [facility] Comment on above: Order Comment: Speci men Type: BLOOD SPECIMENOrdering Facility: [facility] Address: [address] [place] [address] Performed By: #### 2 4323-8, 3040-3, 49900-6, 6-3 ####[facility] LABORATORYCLIA [id number] [place] [address] [place] ALT [Catalytic activity/Vol] 19 U/L Normal 7-38 [facility] Comment on above: Order Comment: Speci men Type: BLOOD SPECIMENOrdering Facility: [facility] Address: [address] [place] [address] Performed By: #### 2 4323-8, 3040-3, 47151-4, 6-3 ####[facility] LABORATORYCLIA [id number] [place] [address] [place] Anion gap [Moles/Vol] 9 mmol/L Normal 8-15 [facility] Comment on above: Order Comment: Speci men Type: BLOOD SPECIMENOrdering Facility: [facility] Address: [address] [place] [address] Performed By: #### 2 4323-8, 3040-3, , 3015-04 ####[facility] LABORATORYCLIA [id number] [place] [address] [place] AST [Catalytic activity/Vol] 33 U/L Normal 13-35 [facility] Comment on above: Order Comment: Speci men Type: BLOOD SPECIMENOrdering Facility: [facility] Address: [address] [place] [address] Performed By: #### 2 4323-8, 0-3, , 3015-04 ####[facility] LABORATORYIA [id number] [place] [address] [place] Bilirubin [Mass/Vol] 0.2 mg/dL Normal 0.2-1.3 [facility] Comment on above: Order Comment: Speci men Type: BLOOD SPECIMENOrdering Facility: [facility] Address: [address] [place] [address] Performed By: #### 2 4323-8, 0-3, , 3015-04 ####[facility]PITALIA [id number] [place] [address] [place] Calcium [Mass/Vol] 8.9 mg/dL Normal 8.5-10.2 [facility] Comment on above: Order Comment: Speci men Type: BLOOD SPECIMENOrdering Facility: [facility] Address: [address] [place], [place] [address] Performed By: #### 2 4323-8, 0-3, , 3015-04 ####[facility] LABORATORYIA [id number] [place] [address] [place] Chloride [Moles/Vol] 104 mmol/L Normal 98-107 [facility] Comment on above: Order Comment: Speci men Type: BLOOD SPECIMENOrdering Facility: [facility] Address: [address] [place], [place] [address] Performed By: #### 2 4323-8, 3040-3, 50770-3, 3015-04 ####[facility] LABORATORYCLIA [id number] [place] [address] [place] CO2 [Moles/Vol] 25 mmol/L Normal 22-30 [facility] ital Comment on above: Order Comment: Speci men Type: BLOOD SPECIMENOrdering Facility: [facility] Address: [address] [place] [address] Performed By: #### 2 4323-8, 3040-3, , 3015-04 ####[facility] LABORATORYCLIA [id number] [place] [id number] [place] Creatinine [Mass/Vol] 0.70 mg/dL Normal 0.58-0.96 [facility] Comment on above: Order Comment: Speci men Type: BLOOD SPECIMENOrdering Facility: [facility] Address: [address] [place] [address] Performed By: #### 2 4323-8, 3040-3, , 3015-04 ####[facility] LABORATORYCLIA [id number] [address] [place] Creatinine and Glomerular filtration rate.predicted panel (S/P/Bld) 117 mL/min/1.73m??? Normal >=60 [facility] l Comment on above: Order Comment: [facility] Type: BLOOD SPECIMENOrdering Facility: [facility] Address: [address] [place] [address] Result Comment: Jessica mated Glomerular Filtration Rate [...] Performed By: #### 2 4323-8, 3040-3, , 3016-3 ####[facility] [id number] [place] [address] [place] Glucose [Mass/Vol] 128 mg/dL High 74-99 [facility] Comment on above: Order Comment: Speci men Type: BLOOD SPECIMENOrdering Facility: [facility] Address: [address] [place], [place] [address] Result Comment: The [place] Diabetes Association (ADA) provides guidance for cutoff [...] Standards of Medical Care in Diabetes 2016, [place] Diabetes Association. Diabetes Care. 2016.39(Suppl 1). Performed By: #### 2 4323-8, 3040-3, 50989-7, 3015-3 ####[facility] [id number] [place] [address] [place] Potassium [Moles/Vol] 5.0 mmol/L Normal 3.7-5.1 [facility] Comment on above: Order Comment: Speci men Type: BLOOD SPECIMENOrdering Facility: [facility] Address: [address] [place] [address] Performed By: #### 2 4323-8, 3040-3, 02366-3, 3015-3 ####[facility] [id number] [place] [address] [place] Protein [Mass/Vol] 7.0 g/dL Normal 6.3-8.0 [facility] Comment on above: Order Comment: Lyssai men Type: BLOOD SPECIMENOrdering Facility: [facility] Address: [address] [place], [place] [address] Performed By: #### 2 4323-8, 3040-3, 89923-5, 3 ####[facility] LABORATORYCLIA [id number] [facility] [place] [address] [place] Sodium [Moles/Vol] 138 mmol/L Normal 136-144 [facility] Comment on above: Order Comment: Speci men Type: BLOOD SPECIMENOrdering Facility: [facility] Address: [address] [place], [place] [address] Performed By: #### 2 4323-8, 3040-3, 15836-6, 3 ####[facility] LABORATORYCLIA [id number] [place] [address] [place] Urea nitrogen [Mass/Vol] 6 mg/dL Low 7- [facility] Comment on above: Order Comment: Speci men Type: BLOOD SPECIMENOrdering Facility: [facility] Address: [address] [place], [place] [address] Performed By: #### 2 4323-8, 3040-3, , 3 ####[facility] LABORATORYCLIA [id number] [place] [address] [place] ED NOTEon 10-10-2023 ED NOTE HNO ID: [id number] Author: NEETA EVANS, DEE Service: ? Author Type: Registered Nurse Type: ED Notes Filed: 10/10/2023 15:26 Note Text: PEG tube placed on low intermittent suction per order. Normal [facility] ED NOTE Normal [facility] ED NOTE Normal [facility] ED PROV NOTEon 10-10-2023 ED PROV NOTE Normal [facility] HISTORY PHYSICALon HISTORY PHYSICAL Normal [facility] Lipase SerPl-cCncon 10-10-19 24 Lipase [Catalytic activity/Vol] 24 U/L Normal 16-61 [facility] Comment on above: Order Comment: Speci men Type: BLOOD SPECIMENOrdering Facility: [facility] Address: [address] [place], [place] [address] Performed By: #### 2 4323-8, 3040-3, 97677-0, 3015-04 ####[facility] LABORATORYCLIA [id number] [facility] [place] [address] [place] Magnesium SerPl-mCncon 10-09 Magnesium [Mass/Vol] 2.2 mg/dL Normal 1.7-2.3 [facility] Comment on above: Order Comment: Speci men Type: BLOOD SPECIMENOrdering Facility: [facility] Address: [address] [place], [place] [address] Performed By: #### 2 4323-8, 3040-3, , 3015-04 ####[facility] [id number] [facility] [place] [address] [facility] [place] NURSING PROGon 10-10-2023 NURSING PROG [facility] TSH SerPl-aCncon 10-10-2023 TSH Qn 0.942 m[IU]/L Normal 0.270-4.200 [facility] Comment on above: Order Comment: Speci men Type: BLOOD SPECIMENOrdering Facility: [facility] Address: [address] [place], [place] [address] Result Comment: If t he patient is , TSH reference range varies by gestational period:First Trimester (weeks 9-12): 0.180-2.990 mIU/LSecond Trimester: 0.110-3.980 mIU/LThird Trimester: 0.480-4.710 mIU/Lisa Johnson et al. A Practical Approach for the Verifications and Determination of Site- and Trimester-Specific Reference Intervals for Thyroid Function tests in . Thyroid, 2019:29:3:412-420. Claus Graf, et al. 2017 Guidelines of the [place] Thyroid Association for the Diagnosis and Management of Thyroid Disease during and the . Thyroid, 2017:27:3:315-389. Performed By: #### 2 4323-8, 3040-3, , 3015-04 ####[facility] LABORATORYIA [id number] [facility] [place] [address] [place] CNPNon 10-08-2023 CNPN Normal [facility] [id number] 10-07-2023 [id number] HNO ID: [id number] Author: SERENA DE LA ROSA RN Service: ? Author Type: Registered Nurse Type: [id number] Filed: 10/07/2023 09:58 Note Text: Tylenol may be taken at home. Ibuprofen may be taken at home. Normal [facility] ANES POSTPROC EVALon 024 ANES POSTPROC EVAL Normal [facility] ANES PRE-OPon 10-07-2023 ANES PRE-OP Normal [facility] BRIEF OP NOTon 10-07-2023 BRIEF OP NOT Normal [facility] HISTORY PHYSICALon 4 HISTORY PHYSICAL Normal [facility] NURSING PROGon 10-07-2023 NURSING PROG Normal [facility] NURSING PROG Normal [facility] OPERATIVE NOon 10-07-2023 OPERATIVE NO [facility] PT EDon 10-07-2023 PT ED Normal [facility] XR CHEST 1V FRONTAL PORTon 0 10-07-2023 XR CHEST 1V FRONTAL PORT Normal [facility] HISTORY PHYSICALon 4 HISTORY PHYSICAL Normal [facility] MR KNEE RIGHT WO IV CONTRAST on [...] Triage Noteon 09-22-2023 ED Triage Note Normal [facility] BETA HCG, QUANTITATIVE FOR E Don 09-18-2023 HCG.beta subunit Qn m[IU]/mL Normal <5.0 [facility] Comment on above: Order Comment: Speci men Type: BLOOD SPECIMENOrdering Facility: [facility] Address: [address] [place] [address] Result Comment: Geraldo roberts Performed By: #### H CGED, 78816-5, 3040-3, 09547-9 ####[facility] LABORATORYCLIA [id number] [facility] [place] [address] [place] CBC W Auto Differential pane l (Bld)on 09-18-2023 Basophils (Bld) [#/Vol] 0.03 10*3/uL Normal <0.11 [facility] Comment on above: Order Comment: Speci men Type: BLOOD SPECIMENOrdering Facility: [facility] Address: [address] [place] [address] Performed By: #### 5 7021-8 ####[facility] LABORATORYCLIA [id number] [facility] [place] [address] [place] Basophils/100 WBC (Bld) 0.6 % Normal [facility] Comment on above: Order Comment: Speci men Type: BLOOD SPECIMENOrdering Facility: [facility] Address: [address] [place] [address] Performed By: #### 5 7021-8 ####[facility] LABORATORYCLIA [id number] [place] [address] [place] Differential cell count method Nom (Bld) Auto Normal [facility] Comment on above: Order Comment: Speci men Type: BLOOD SPECIMENOrdering Facility: [facility] Address: [address] [place] [address] Performed By: #### 5 7021-8 ####[facility] LABORATORYCLIA [id number] [place] [address] [place] Eosinophils (Bld) [#/Vol] 10*3/uL Normal <0.46 [facility] Comment on above: Order Comment: Speci men Type: BLOOD SPECIMENOrdering Facility: [facility] Address: [address] [address] Performed By: #### 5 7021-8 ####[facility] LABORATORYCLIA [id number] [address] [place] Eosinophils/100 WBC (Bld) 0.2 % Normal [facility] Comment on above: Order Comment: Speci men Type: BLOOD SPECIMENOrdering Facility: [facility] Address: [address] [place] [address] Performed By: #### 5 7021-8 ####[facility] [id number] [address] [place] Erythrocyte distribution width (RBC) [Ratio] 13.5 % Normal 11.5-15.0 [facility] Comment on above: Order Comment: Speci men Type: BLOOD SPECIMENOrdering Facility: [facility] Address: [address] [place] [address] Performed By: #### 5 7021-8 ####[facility] LABORATORYIA [id number] [address] [place] Hematocrit (Bld) [Volume fraction] 37.1 % Normal 36.0-46.0 [facility] Comment on above: Order Comment: Speci men Type: BLOOD SPECIMENOrdering Facility: [facility] Address: [address] [place] [address] Performed By: #### 5 7021-8 ####[facility] LABORATORYIA [id number] [place] [address] [place] Hemoglobin (Bld) [Mass/Vol] 11.9 g/dL Normal 11.5-15.5 [facility] Comment on above: Order Comment: Speci men Type: BLOOD SPECIMENOrdering Facility: [facility] Address: [address] [place] [address] Performed By: #### 5 7021-8 ####[facility] LABORATORYCLIA [id number] [facility] [place] [address] [place] Immature granulocytes (Bld) [#/Vol] 10*3/uL Normal <0.10 [facility] Comment on above: Order Comment: Speci men Type: BLOOD SPECIMENOrdering Facility: [facility] Address: [address] [place] [address] Performed By: #### 5 7021-8 ####[facility] [id number] [place] [address] [place] Immature granulocytes/100 WBC (Bld) 0.2 % Normal [facility] Comment on above: Order Comment: Speci men Type: BLOOD SPECIMENOrdering Facility: [facility] Address: [address] [place] [address] Performed By: #### 5 7021-8 ####[facility] [id number] [place] [address] [place] Lymphocytes (Bld) [#/Vol] 0.61 10*3/uL Low 1.00-4.00 [facility] Comment on above: Order Comment: Speci men Type: BLOOD SPECIMENOrdering Facility: [facility] Address: [address] [place] [address] Performed By: #### 5 7021-8 ####[facility] LABORATORYCLIA [id number] [place] [address] [place] Lymphocytes/100 WBC (Bld) 11.5 % Normal [facility] Comment on above: Order Comment: Speci men Type: BLOOD SPECIMENOrdering Facility: [facility] Address: [address] [place] [address] Performed By: #### 5 7021-8 ####[facility] LABORATORYCLIA [id number] MCH (RBC) [Entitic mass] 27.4 pg Normal 26.0-34.0 [facility] Comment on above: Order Comment: Speci men Type: BLOOD SPECIMENOrdering Facility: [facility] Address: [address] [place] [address] Performed By: #### 5 7021-8 ####[facility] LABORATORYCLIA [id number] [address] [place] MCHC (RBC) [Mass/Vol] 32.1 g/dL Normal 30.5-36.0 [facility] Comment on above: Order Comment: Speci men Type: BLOOD SPECIMENOrdering Facility: [facility] Address: [address] [place] [address] Performed By: #### 5 7021-8 ####[facility] [id number] [address] [place] MCV (RBC) [Entitic vol] 85.5 fL Normal 80.0-100.0 [facility] Comment on above: Order Comment: Speci men Type: BLOOD SPECIMENOrdering Facility: [facility] Address: [address] [place] [address] Performed By: #### 5 7021-8 ####[facility] [id number] [address] [place] Monocytes (Bld) [#/Vol] 0.16 10*3/uL Normal <0.87 [facility] Comment on above: Order Comment: Speci men Type: BLOOD SPECIMENOrdering Facility: [facility] Address: [address] [place] [address] Performed By: #### 5 7021-8 ####[facility] LABORATORYIA [id number] [address] Monocytes/100 WBC (Bld) 3.0 % Normal [facility] Comment on above: Order Comment: Speci men Type: BLOOD SPECIMENOrdering Facility: [facility] Address: [address] [place] [address] Performed By: #### 5 7021-8 ####[facility] LABORATORYCLIA [id number] [place] [address] [place] Neutrophils (Bld) [#/Vol] 4.48 10*3/uL Normal 1.45-7.50 [facility] Comment on above: Order Comment: Speci men Type: BLOOD SPECIMENOrdering Facility: [facility] Address: [address] [place] [address] Performed By: #### 5 7021-8 ####[facility] LABORATORYCLIA [id number] [place] [address] [place] Neutrophils/100 WBC (Bld) 84.5 % Normal [facility] Comment on above: Order Comment: Speci men Type: BLOOD SPECIMENOrdering Facility: [facility] Address: [address] [place] [address] Performed By: #### 5 7021-8 ####[facility] [id number] [place] [address] [place] Nucleated RBC (Bld) [#/Vol] 10*3/uL Normal <0.01 [facility] Comment on above: Order Comment: Speci men Type: BLOOD SPECIMENOrdering Facility: [facility] Address: [address] [place] [address] Performed By: #### 5 7021-8 ####[facility]IA [id number] [place] [address] [place] Nucleated RBC/100 WBC (Bld) [Ratio] 0.0 /100 WBC Normal [facility] Comment on above: Order Comment: Speci men Type: BLOOD SPECIMENOrdering Facility: [facility] Address: [address] [place] [address] Performed By: #### 5 7021-8 ####[facility] LABORATORYIA [id number] [place] [address] [place] Platelet mean volume (Bld) [Entitic vol] 10.7 fL Normal 9.0-12.7 [facility] Comment on above: Order Comment: Speci men Type: BLOOD SPECIMENOrdering Facility: [facility] Address: [address] [place] [address] Performed By: #### 5 7021-8 ####[facility] [id number] [place] [address] [place] Platelets (Bld) [#/Vol] 274 10*3/uL Normal 150-400 [facility] Comment on above: Order Comment: Speci men Type: BLOOD SPECIMENOrdering Facility: [facility] Address: [address] [place] [address] Performed By: #### 5 7021-8 ####[facility] [id number] [place] [id number] [place] RBC (Bld) [#/Vol] 4.34 10*6/uL Normal 3.90-5.20 [facility] Comment on above: Order Comment: Speci men Type: BLOOD SPECIMENOrdering Facility: [facility] Address: [address] [place] [address] Performed By: #### 5 7021-8 ####[facility] [id number] [place] [address] [place] WBC (Bld) [#/Vol] 5.30 10*3/uL Normal 3.70-11.00 [facility] Comment on above: Order Comment: Speci men Type: BLOOD SPECIMENOrdering Facility: [facility] Address: [address] [place] [address] Performed By: #### 5 7021-8 ####[facility] [id number] [place] [address] [place] CT ABD/PEL W IVCONon 024 CT ABD/PEL W IVCON Normal [facility] Comprehensive metabolic 2000 panelon 09-18-2023 Albumin [Mass/Vol] 4.4 g/dL Normal 3.9-4.9 [facility] Comment on above: Order Comment: Speci men Type: BLOOD SPECIMENOrdering Facility: [facility] Address: [address] [place] [address] [place] [address] Performed By: #### H CGED, 54399-0, 3040-3, 36421-8 ####[facility] LABORATORYCLIA [id number] [place] [address] [place] ALP [Catalytic activity/Vol] 66 U/L Normal 34-123 [facility] Comment on above: Order Comment: Speci men Type: BLOOD SPECIMENOrdering Facility: [facility] Address: [address] [place] [address] Performed By: #### H CGED, 72460-7, 3040-3, 87222-1 ####[facility] LABORATORYCLIA [id number] [place] [address] [place] ALT [Catalytic activity/Vol] 38 U/L Normal 7-38 [facility] Comment on above: Order Comment: Speci men Type: BLOOD SPECIMENOrdering Facility: [facility] Address: [address] [place] [address] Performed By: #### H CGED, 77219-0, 3040-3, ####[facility] LABORATORYCLIA [id number] [place] [address] [place] Anion gap [Moles/Vol] 11 mmol/L Normal 8-15 [facility] Comment on above: Order Comment: Speci men Type: BLOOD SPECIMENOrdering Facility: [facility] Address: [address] [place] [address] Performed By: #### H CGED, 97297-7, 3040-3, 70978-5 ####[facility] LABORATORYCLIA [id number] [facility] [place] [address] [place] AST [Catalytic activity/Vol] 48 U/L High 13-35 [facility] Comment on above: Order Comment: Speci men Type: BLOOD SPECIMENOrdering Facility: [facility] Address: [address] [place] [address] Performed By: #### H CGED, 47252-6, 3040-3, 42382-7 ####[facility] LABORATORYCLIA [id number] [place] [address] [place] Bilirubin [Mass/Vol] 0.3 mg/dL Normal 0.2-1.3 [facility] Comment on above: Order Comment: Speci men Type: BLOOD SPECIMENOrdering Facility: [facility] Address: [address] [place] [address] Performed By: #### H ELISED, 59717-2, 0-3, ####[facility] [id number] [place] [address] [place] Calcium [Mass/Vol] 8.8 mg/dL Normal 8.5-10.2 [facility] Comment on above: Order Comment: Speci men Type: BLOOD SPECIMENOrdering Facility: [facility] Address: [address] [place] [address] Performed By: #### H TRACEY, 48250-6, 3039-3, ####[facility]ITALIA [id number] [place] [address] [place] Chloride [Moles/Vol] 106 mmol/L Normal 98-107 [facility] Comment on above: Order Comment: Speci men Type: BLOOD SPECIMENOrdering Facility: [facility] Address: [address] [place] [address] Performed By: #### H ELISED, 36898-4, 3039-3, ####[facility] LABORATORYIA [id number] [place] [address] [place] CO2 [Moles/Vol] 20 mmol/L Low 22-30 [facility] Comment on above: Order Comment: Speci men Type: BLOOD SPECIMENOrdering Facility: [facility] Address: [address] [place] [address] Performed By: #### H ELISED, 52115-2, 3040-3, ####[facility] LABORATORYIA [id number] [place] [address] [place] Creatinine [Mass/Vol] 0.70 mg/dL Normal 0.58-0.96 [facility] Comment on above: Order Comment: Geraldo [facility] Type: BLOOD SPECIMENOrdering Facility: [facility] Address: [address] [place] [address] Performed By: #### H CGED, 09500-0, 3040-3, 81017-3 ####[facility] LABORATORYCLIA [id number] [place] [address] [place] Creatinine and Glomerular filtration rate.predicted panel (S/P/Bld) 117 mL/min/1.73m??? Normal >=60 [facility] Comment on above: Order Comment: [facility] Type: BLOOD SPECIMENOrdering Facility: [facility] Address: [address] [place] [address] Result Comment: Jessica mated Glomerular Filtration Rate [...] reflect actual GFR. Performed By: #### H CGED, 22182-4, 0-3, ####[facility] LABORATORYCLIA [id number] [place] [address] [place] Glucose [Mass/Vol] 118 mg/dL High 74-99 [facility] Comment on above: Order Comment: Geraldo [facility] Type: BLOOD SPECIMENOrdering Facility: [facility] Address: [address] [place] [address] Result Comment: The [place] Diabetes Association (ADA) provides guidance for cutoff [...] Standards of Medical Care in Diabetes 2016, [place] Diabetes Association. Diabetes Care. 2016.39(Suppl 1). Performed By: #### H CGED, 53156-7, 0-3, ####[facility] LABORATORYCLIA [id number] [facility] [place] [address] [place] Potassium [Moles/Vol] 4.0 mmol/L Normal 3.7-5.1 [facility] Comment on above: Order Comment: Speci men Type: BLOOD SPECIMENOrdering Facility: [facility] Address: [address] [place] [address] Performed By: #### H CGED, 45913-9, 3039-3, ####[facility]IA [id number] [place] [address] [place] Protein [Mass/Vol] 7.1 g/dL Normal 6.3-8.0 [facility] Comment on above: Order Comment: Speci men Type: BLOOD SPECIMENOrdering Facility: [facility] Address: [address] [place] [address] Performed By: #### H CGED, 86552-9, 3039-3, ####[facility] [id number] [place] [address] [place] Sodium [Moles/Vol] 137 mmol/L Normal 136-144 [facility] Comment on above: Order Comment: Speci men Type: BLOOD SPECIMENOrdering Facility: [facility] Address: [address] [place] [address] Performed By: #### H CGED, 64439-2, 3039-3, ####[facility] LABORATORYIA [id number] [place] [address] [place] Urea nitrogen [Mass/Vol] 9 mg/dL Normal 7-21 [facility] Comment on above: Order Comment: Speci men Type: BLOOD SPECIMENOrdering Facility: [facility] Address: [address] [place] [id number] Performed By: #### H TRACEY, 41788-2, 3040-3, 31525-8 ####[facility] [id number] [place] [address] [place] ED NOTEon 09-18-2023 ED NOTE Normal [facility] ED PROV NOTEon 09-18-2023 ED PROV NOTE Normal [facility] l Lipase SerPl-cCncon 09-18-19 24 Lipase [Catalytic activity/Vol] 37 U/L Normal 16-61 [facility] Comment on above: Order Comment: Speci men Type: BLOOD SPECIMENOrdering Facility: [facility] Address: [facility] [place] [address] Performed By: #### H RTACEY, 02543-2, 3040-3, 76667-0 ####[facility] [id number] [place] [address] [place] Magnesium SerPl-mCncon 09-17 Magnesium [Mass/Vol] 2.1 mg/dL Normal 1.7-2.3 [facility] Comment on above: Order Comment: Speci men Type: BLOOD SPECIMENOrdering Facility: [facility] Address: [address] [place], [place] [address] [address] Performed By: #### H TRACEY, 61271-3, 3040-3, 13548-8 ####[facility] [id number] [place] [address] [place] Urinalysis complete panel (U )on 09-18-2023 Bilirubin Ql (U) Negative Normal Negative [facility] pital Comment on above: Order Comment: Speci men Type: URINE SPECIMENOrdering Facility: [facility] Address: [address] [place], [place] [address] [address] Performed By: #### 2 4356-8 ####[facility] [id number] [place] [address] [place] Clarity (Unsp spec) Clear Normal Clear [facility] Comment on above: Order Comment: Speci men Type: URINE SPECIMENOrdering Facility: [facility] Address: [address] [place] [address] Performed By: #### 2 4356-8 ####[facility] [id number] [place] [address] [place] Color (U) Light Yellow Normal yellow [facility] Comment on above: Order Comment: Speci men Type: URINE SPECIMENOrdering Facility: [facility] Address: [address] [place] [address] Performed By: #### 2 4356-8 ####[facility] [id number] [place] [address] [place] Glucose Test strip (U) [Mass/Vol] Negative Normal Trace, Negative [facility] Comment on above: Order Comment: Speci men Type: URINE SPECIMENOrdering Facility: [facility] Address: [address] [place] [address] Performed By: #### 2 4356-8 ####[facility] [id number] [place] [address] [place] Hemoglobin Ql (U) Negative Normal Negative, Trace [facility] Comment on above: Order Comment: Speci men Type: URINE SPECIMENOrdering Facility: [facility] Address: [address] [place] [address] Performed By: #### 2 4356-8 ####[facility] [id number] [place] [address] [place] Ketones Ql (U) Negative Normal Negative, Trace [facility] Comment on above: Order Comment: Speci men Type: URINE SPECIMENOrdering Facility: [facility] Address: [address] [place] [address] Performed By: #### 2 4356-8 ####[facility] [id number] [place] [address] [place] Leukocyte esterase Test strip Ql (U) Negative Normal Negative, 25 Patito/uL [facility] Comment on above: Order Comment: Speci men Type: URINE SPECIMENOrdering Facility: [facility] Address: [address] [place] [address] Performed By: #### 2 4356-8 ####[facility] [id number] [place] [address] [place] Nitrite Ql (U) Negative Normal Negative [facility] Comment on above: Order Comment: Speci men Type: URINE SPECIMENOrdering Facility: [facility] Address: [address] [place] [address] Performed By: #### 2 4356-8 ####[facility] [id number] [place] [address] [place] pH (U) 7.5 [pH] Normal 5.0-8.0 [facility] Comment on above: Order Comment: Speci men Type: URINE SPECIMENOrdering Facility: [facility] Address: [address] [place] [address] Performed By: #### 2 4356-8 ####[facility] [id number] [place] [address] [place] Protein (U) [Mass/Vol] Negative Normal Trace, Negative [facility] Comment on above: Order Comment: Speci men Type: URINE SPECIMENOrdering Facility: [facility] Address: [address] [place] [address] Performed By: #### 2 4356-8 ####[facility] [id number] [place] [id number] [place] RBC LM.HPF (Urine sed) [#/Area] 0-3 /HPF Normal 0-3 /HPF [facility] Comment on above: Order Comment: Speci men Type: URINE SPECIMENOrdering Facility: [facility] Address: [address] [place] [address] Performed By: #### 2 4356-8 ####[facility] [id number] [place] [address] [place] Specific gravity (U) [Rel density] 1.005 Normal 1.005-1.030 [facility] Comment on above: Order Comment: Speci men Type: URINE SPECIMENOrdering Facility: [facility] Address: [address] [place] [address] Performed By: #### 2 4356-8 ####[facility] [id number] [place] [address] [place] Urobilinogen Ql (U) Normal Normal Normal [facility] Comment on above: Order Comment: Speci men Type: URINE SPECIMENOrdering Facility: [facility] Address: [address] [place] [address] Performed By: #### 2 4356-8 ####[facility] [id number] [place] [address] [place] WBC LM.HPF (Urine sed) [#/Area] 0-5 /HPF Normal 0-5 /HPF [facility] Comment on above: Order Comment: Speci men Type: URINE SPECIMENOrdering Facility: [facility] Address: [address] [place] [address] Performed By: #### 2 4356-8 ####[facility] [id number] [place] [address] [place] CBC W Auto Differential pane l (Bld)on 09-17-2023 Basophils (Bld) [#/Vol] 0.03 10*3/uL Normal <0.11 [facility] Comment on above: Order Comment: Speci men Type: BLOOD SPECIMENOrdering Facility: [facility] Address: [address] [place] [address] Performed By: #### 5 7021-8 ####[facility] [id number] [place] [id number] [place] Basophils/100 WBC (Bld) 0.5 % Normal [facility] Comment on above: Order Comment: Speci men Type: BLOOD SPECIMENOrdering Facility: [facility] Address: [address] [place] [address] Performed By: #### 5 7021-8 ####[facility]OR[facility]ORY[facility] [id number] [address] [place] Differential cell count method Nom (Bld) Auto Normal [facility] Comment on above: Order Comment: Speci men Type: BLOOD SPECIMENOrdering Facility: [facility] Address: [address] [place] [address] Performed By: #### 5 7021-8 ####[facility] LABORATORYCLIA [id number] [place] [address] [place] Eosinophils (Bld) [#/Vol] 10*3/uL Normal <0.46 [facility] Comment on above: Order Comment: Speci men Type: BLOOD SPECIMENOrdering Facility: [facility] Address: [address] [place] [address] Performed By: #### 5 7021-8 ####[facility]ORATORYIA [id number] [address] [place] Eosinophils/100 WBC (Bld) 0.2 % Normal [facility] Comment on above: Order Comment: Speci men Type: BLOOD SPECIMENOrdering Facility: [facility] Address: [address] [place] [address] Performed By: #### 5 7021-8 ####[facility]ORYIA [id number] [address] [place] Erythrocyte distribution width (RBC) [Ratio] 13.3 % Normal 11.5-15.0 [facility] Comment on above: Order Comment: Speci men Type: BLOOD SPECIMENOrdering Facility: [facility] Address: [address] [place] [address] Performed By: #### 5 7021-8 ####[facility] LABORATORYCLIA [id number] [address] [place] Hematocrit (Bld) [Volume fraction] 34.2 % Low 36.0-46.0 [facility] Comment on above: Order Comment: Speci men Type: BLOOD SPECIMENOrdering Facility: [facility] Address: [address] [place] [address] Performed By: #### 5 7021-8 ####[facility] LABORATORYCLIA [id number] [place] [address] [place] Hemoglobin (Bld) [Mass/Vol] 11.2 g/dL Low 11.5-15.5 [facility] Comment on above: Order Comment: Speci men Type: BLOOD SPECIMENOrdering Facility: [facility] Address: [address] [place] [address] Performed By: #### 5 7021-8 ####[facility]ORATORYIA [id number] [facility] [place] [address] [place] Immature granulocytes (Bld) [#/Vol] 10*3/uL Normal <0.10 [facility] Comment on above: Order Comment: Speci men Type: BLOOD SPECIMENOrdering Facility: [facility] Address: [address] [place] [address] Performed By: #### 5 7021-8 ####[facility] [id number] [facility].[place] [id number] [place] Immature granulocytes/100 WBC (Bld) 0.2 % Normal [facility] Comment on above: Order Comment: Speci men Type: BLOOD SPECIMENOrdering Facility: [facility] Address: [address] [place] [address] Performed By: #### 5 7021-8 ####[facility] [id number] [facility] [place] [address] [place] Lymphocytes (Bld) [#/Vol] 1.50 10*3/uL Normal 1.00-4.00 [facility] Comment on above: Order Comment: Speci men Type: BLOOD SPECIMENOrdering Facility: [facility] Address: [address] [place] [address] Performed By: #### 5 7021-8 ####[facility]ORATORYIA [id number] [facility] [place] [address] [place] Lymphocytes/100 WBC (Bld) 25.5 % Normal [facility] Comment on above: Order Comment: Speci men Type: BLOOD SPECIMENOrdering Facility: [facility] Address: [address] [place] [address] Performed By: #### 5 7021-8 ####[facility] [id number] [address] [place] MCH (RBC) [Entitic mass] 27.9 pg Normal 26.0-34.0 [facility] Comment on above: Order Comment: Speci men Type: BLOOD SPECIMENOrdering Facility: [facility] Address: [address] [place] [address] Performed By: #### 5 7021-8 ####[facility] [id number] [place] [address] [place] MCHC (RBC) [Mass/Vol] 32.7 g/dL Normal 30.5-36.0 [facility] Comment on above: Order Comment: Speci men Type: BLOOD SPECIMENOrdering Facility: [facility] Address: [address] [place] [address] Performed By: #### 5 7021-8 ####[facility] [id number] [address] [place] MCV (RBC) [Entitic vol] 85.3 fL Normal 80.0-100.0 [facility] Comment on above: Order Comment: Speci men Type: BLOOD SPECIMENOrdering Facility: [facility] Address: [address] [place] [address] Performed By: #### 5 7021-8 ####[facility] [id number] [address] [place] Monocytes (Bld) [#/Vol] 0.35 10*3/uL Normal <0.87 [facility] Comment on above: Order Comment: Speci men Type: BLOOD SPECIMENOrdering Facility: [facility] Address: [address] [place] [address] Performed By: #### 5 7021-8 ####[facility] [id number] [address] [place] Monocytes/100 WBC (Bld) 5.9 % Normal [facility] Comment on above: Order Comment: Speci men Type: BLOOD SPECIMENOrdering Facility: [facility] Address: [address] [place] [address] Performed By: #### 5 7021-8 ####[facility] LABORATORYCLIA [id number] [place] [address] [place] Neutrophils (Bld) [#/Vol] 3.99 10*3/uL Normal 1.45-7.50 [facility] Comment on above: Order Comment: Speci men Type: BLOOD SPECIMENOrdering Facility: [facility] Address: [address] [place] [address] Performed By: #### 5 7021-8 ####[facility] LABORATORYCLIA [id number] [place] [address] [place] Neutrophils/100 WBC (Bld) 67.7 % Normal [facility] Comment on above: Order Comment: Speci men Type: BLOOD SPECIMENOrdering Facility: [facility] Address: [address] [place] [address] Performed By: #### 5 7021-8 ####[facility] [id number] [place] [address] [place] Nucleated RBC (Bld) [#/Vol] 10*3/uL Normal <0.01 [facility] Comment on above: Order Comment: Speci men Type: BLOOD SPECIMENOrdering Facility: [facility] Address: [address] [place] [address] Performed By: #### 5 7021-8 ####[facility] LABORATORYCLIA [id number] [place] [address] [place] Nucleated RBC/100 WBC (Bld) [Ratio] 0.0 /100 WBC Normal [facility] Comment on above: Order Comment: Speci men Type: BLOOD SPECIMENOrdering Facility: [facility] Address: [address] [place] [address] Performed By: #### 5 7021-8 ####[facility] LABORATORYCLIA [id number] [place] [address] [place] Platelet mean volume (Bld) [Entitic vol] 10.7 fL Normal 9.0-12.7 [facility] Comment on above: Order Comment: Speci men Type: BLOOD SPECIMENOrdering Facility: [facility] Address: [address] [place] [address] Performed By: #### 5 7021-8 ####[facility] LABORATORYCLIA [id number] [place] [address] [place] Platelets (Bld) [#/Vol] 267 10*3/uL Normal 150-400 [facility] Comment on above: Order Comment: Speci men Type: BLOOD SPECIMENOrdering Facility: [facility] Address: [address] [place] [address] Performed By: #### 5 7021-8 ####[facility] [id number] [place] [address] [place] RBC (Bld) [#/Vol] 4.01 10*6/uL Normal 3.90-5.20 [facility] Comment on above: Order Comment: Speci men Type: BLOOD SPECIMENOrdering Facility: [facility] Address: [address] [place] [address] Performed By: #### 5 7021-8 ####[facility] [id number] [place] [address] [place] WBC (Bld) [#/Vol] 5.89 10*3/uL Normal 3.70-11.00 [facility] Comment on above: Order Comment: Speci men Type: BLOOD SPECIMENOrdering Facility: [facility] Address: [address] [place] [address] Performed By: #### 5 7021-8 ####[facility] [id number] [place] [address] [place] [address] ABD/PEL W IVCONon 024 CT ABD/PEL W IVCON Normal [facility] metabolic 2000 panelon 09-17-2023 Albumin [Mass/Vol] 4.1 g/dL Normal 3.9-4.9 [facility] Comment on above: Order Comment: Speci men Type: BLOOD SPECIMENOrdering Facility: [facility] Address: [address] [place] [address] Performed By: #### 1 23-9, ####[facility] LABORATORYCLIA [id number] [place] [address] [place] ALP [Catalytic activity/Vol] 58 U/L Normal 34-123 [facility] Comment on above: Order Comment: Speci men Type: BLOOD SPECIMENOrdering Facility: [facility] Address: [address] [place] [address] Performed By: #### 1 9, ####[facility] LABORATORYCLIA [id number] [place] [address] [place] ALT [Catalytic activity/Vol] 36 U/L Normal 7-38 [facility] Comment on above: Order Comment: Speci men Type: BLOOD SPECIMENOrdering Facility: [facility] Address: [address] [place] [address] Performed By: #### 1 23-9, ####[facility] LABORATORYCLIA [id number] [place] [address] [place] Anion gap [Moles/Vol] 12 mmol/L Normal 8-15 [facility] Comment on above: Order Comment: Speci men Type: BLOOD SPECIMENOrdering Facility: [facility] Address: [address] [place] [address] Performed By: #### 1 23-9, ####[facility] LABORATORYCLIA [id number] [place] [address] [place] AST [Catalytic activity/Vol] 51 U/L High 13-35 [facility] Comment on above: Order Comment: Speci men Type: BLOOD SPECIMENOrdering Facility: [facility] Address: [address] [place] [address] Performed By: #### 1 239, 98652-2 ####[facility]ORATORYIA [id number] [place] [address] [place] Bilirubin [Mass/Vol] 0.3 mg/dL Normal 0.2-1.3 [facility] Comment on above: Order Comment: Speci men Type: BLOOD SPECIMENOrdering Facility: [facility] Address: [address] [place] [address] Performed By: #### 1 9123-9, ####[facility] LABORATORYIA [id number] [place] [address] [place] Calcium [Mass/Vol] 8.7 mg/dL Normal 8.5-10.2 [facility]ital Comment on above: Order Comment: Speci men Type: BLOOD SPECIMENOrdering Facility: [facility] Address: [address] [place] [address] Performed By: #### 1 9123-9, ####[facility] [id number] [place] [address] [place] Chloride [Moles/Vol] 105 mmol/L Normal 98-107 [facility] Comment on above: Order Comment: Speci men Type: BLOOD SPECIMENOrdering Facility: [facility] Address: [address] [place] [address] Performed By: #### 1 9123-9, ####[facility]ORATORYIA [id number] [place] [address] [place] CO2 [Moles/Vol] 22 mmol/L Normal 22-30 [facility] ital Comment on above: Order Comment: Speci men Type: BLOOD SPECIMENOrdering Facility: [facility] Address: [address] [place] [address] Performed By: #### 1 9123-9, ####[facility]ORATORYIA [id number] [place] [address] [place] Creatinine [Mass/Vol] 0.65 mg/dL Normal 0.58-0.96 [facility] Comment on above: Order Comment: Speci men Type: BLOOD SPECIMENOrdering Facility: [facility] Address: [address] [place] [address] Performed By: #### 1 9123-9, 72388-4 ####[facility] LABORATORYCLIA [id number] [place] [address] [place] Creatinine and Glomerular filtration rate.predicted panel (S/P/Bld) 119 mL/min/1.73m??? Normal >=60 [facility] Comment on above: Order Comment: Geraldo marrero Type: BLOOD SPECIMENOrdering Facility: [facility] Address: [address] [place] [address] Result Comment: Jessica mated Glomerular Filtration Rate [...] actual GFR. Performed By: #### 1 9123-9, 51397-5 ####[facility] LABORATORYCLIA [id number] [facility].[place] [id number] [place] Glucose [Mass/Vol] 92 mg/dL Normal 74-99 [facility] Comment on above: Order Comment: Geraldo elida Type: BLOOD SPECIMENOrdering Facility: [facility] Address: [address] [place] [address] Result Comment: The [place] Diabetes Association (ADA) provides guidance for cutoff [...] Standards of Medical Care in Diabetes 2016, [place] [employer]. Diabetes Care. 2016.39(Suppl 1). Performed By: #### 1 9123-9, 40709-7 ####[facility] [id number] [place] [address] [place] Potassium [Moles/Vol] 3.6 mmol/L Low 3.7-5.1 [facility] Comment on above: Order Comment: Speci men Type: BLOOD SPECIMENOrdering Facility: [facility] Address: [address] [place] [address] Performed By: #### 1 23-9, 76330-7 ####[facility] [id number] [place] [address] [place] Protein [Mass/Vol] 6.9 g/dL Normal 6.3-8.0 [facility] Comment on above: Order Comment: Speci men Type: BLOOD SPECIMENOrdering Facility: [facility] Address: [address] [place] [address] Performed By: #### 1 9123-9, 84791-1 ####[facility] [id number] [place] [address] [place] Sodium [Moles/Vol] 139 mmol/L Normal 136-144 [facility] Comment on above: Order Comment: Speci men Type: BLOOD SPECIMENOrdering Facility: [facility] Address: [address] [place] [address] Performed By: #### 1 9123-9, ####[facility] [id number] [place] [address] [place] Urea nitrogen [Mass/Vol] 10 mg/dL Normal 7-21 [facility] Comment on above: Order Comment: Speci men Type: BLOOD SPECIMENOrdering Facility: [facility] Address: [address] [place] [address] Performed By: #### 1 9123-9, 08372-1 ####[facility] [id number] [place] [address] [place] ED NOTEon 09-17-2023 ED NOTE Normal [facility] ED NOTE Normal [facility] ED NOTE HNO ID: [id number] Author: MISHEL HERNANDEZ RN Service: ? Author Type: Registered Nurse Type: ED Notes Filed: 09/17/2023 15:23 Note Text: Report received from DEE Lopez and assumed care of pt Normal [facility] ED NOTE HNO ID: [id number] Author: ANITA HECK RN Service: [facility]ospital Author Type: Registered Nurse Type: ED Notes Filed: 09/17/2023 15:18 Note Text: Report given to DEE [facility] ED NOTE Normal [facility] ED PROV NOTEon 09-17-2023 ED PROV NOTE Normal [facility] ED PROV NOTE Normal [facility] ED Triage Noteon 09-17-2023 ED Triage Note [facility] Magnesium SerPl-mCncon 09-16 Magnesium [Mass/Vol] 1.9 mg/dL Normal 1.7-2.3 [facility] Comment on above: Order Comment: Speci men Type: BLOOD SPECIMENOrdering Facility: [facility] Address: [address] [place] [address] Performed By: #### 1 9123-9, 95713-6 ####[facility] [id number] [address] [place] Urinalysis complete panel (U )on 09-17-2023 Bilirubin Ql (U) Negative Normal Negative [facility] Comment [facility] above: Order Comment: Speci men Type: URINE SPECIMENOrdering Facility: [facility] Address: [address] [place] [address] Performed By: #### 2 4356-8 ####[facility] LABORATORYIA [id number] [address] [place] Clarity (Unsp spec) Clear Normal Clear [facility] Comment on above: Order Comment: Speci men Type: URINE SPECIMENOrdering Facility: [facility] Address: [address] [place] [address] Performed By: #### 2 4356-8 ####[facility] LABORATORYIA [id number] [place] [address] [place] Color (U) Colorless Normal yellow [facility] Comment on above: Order Comment: Speci men Type: URINE SPECIMENOrdering Facility: [facility] Address: [address] [place] [address] Performed By: #### 2 4356-8 ####[facility] LABORATORYIA [id number] [place] [address] [place] Epithelial cells LM.HPF (Urine sed) [#/Area] Few Normal [facility] Comment on above: Order Comment: Speci men Type: URINE SPECIMENOrdering Facility: [facility] Address: [address] [place] [address] Performed By: #### 2 4356-8 ####[facility] [id number] [place] [address] [place] Glucose Test strip (U) [Mass/Vol] Negative Normal Trace, Negative [facility] Comment on above: Order Comment: Speci men Type: URINE SPECIMENOrdering Facility: [facility] Address: [address] [place] [address] Performed By: #### 2 4356-8 ####[facility] [id number] [place] [address] [place] Hemoglobin Ql (U) Negative Normal Negative, Trace [facility] Comment on above: Order Comment: Speci men Type: URINE SPECIMENOrdering Facility: [facility] Address: [address] [place] [address] Performed By: #### 2 4356-8 ####[facility] [id number] [place] [address] [place] Ketones Ql (U) Negative Normal Negative, Trace [facility] Comment on above: Order Comment: Speci men Type: URINE SPECIMENOrdering Facility: [facility] Address: [address] [place] [address] Performed By: #### 2 4356-8 ####[facility] LABORATORYIA [id number] [place] [address] [place] Leukocyte esterase Test strip Ql (U) Negative Normal Negative, 25 [place]/uL [facility] Comment on above: Order Comment: Speci men Type: URINE SPECIMENOrdering Facility: [facility] Address: [address] [place] [address] Performed By: #### 2 4356-8 ####[facility] [id number] [address] [place] Nitrite Ql (U) Negative Normal Negative [facility] Comment on above: Order Comment: Speci men Type: URINE SPECIMENOrdering Facility: [facility] Address: [address] [place] [address] Performed By: #### 2 4356-8 ####[facility] [id number] [place] [address] [place] pH (U) 7.5 [pH] Normal 5.0-8.0 [facility] Comment on above: Order Comment: Speci men Type: URINE SPECIMENOrdering Facility: [facility] Address: [address] [place] [address] Performed By: #### 2 4356-8 ####[facility] [id number] [address] [place] Protein (U) [Mass/Vol] Negative Normal Trace, Negative [facility] Comment on above: Order Comment: Speci men Type: URINE SPECIMENOrdering Facility: [facility] Address: [address] [place] [address] Performed By: #### 2 4356-8 ####[facility] [id number] [place] [address] [place] RBC LM.HPF (Urine sed) [#/Area] 0-3 /HPF Normal 0-3 /HPF [facility] Comment on above: Order Comment: Speci men Type: URINE SPECIMENOrdering Facility: [facility] Address: [address] [place] [address] Performed By: #### 2 4356-8 ####[facility] [id number] [place] [address] [place] Specific gravity (U) [Rel density] 1.032 High 1.005-1.030 [facility] Comment on above: Order Comment: Speci men Type: URINE SPECIMENOrdering Facility: [facility] Address: [address] [place] [address] Performed By: #### 2 4356-8 ####[facility]ORATORYIA [id number] [place] [id number] [place] Urobilinogen Ql (U) Normal Normal Normal [facility] Comment on above: Order Comment: Speci men Type: URINE SPECIMENOrdering Facility: [facility] Address: [address] [place] [address] Performed By: #### 2 4356-8 ####[facility] [id number] [place] [address] [place] WBC LM.HPF (Urine sed) [#/Area] 0-5 /HPF Normal 0-5 /HPF [facility] Comment on above: Order Comment: Speci men Type: URINE SPECIMENOrdering Facility: [facility] Address: [address] [place] [address] Performed By: #### 2 4356-8 ####[facility] [id number] [place] [id number] [place] BETA HCG, QUANTITATIVE FOR E Don 09-12-2023 HCG.beta subunit Qn m[IU]/mL Normal <5.0 [facility] Comment on above: Order Comment: Speci men Type: BLOOD SPECIMENOrdering Facility: [facility] Address: [address] [place] [address] Result Comment: Nega tive Performed By: #### 1 9123-9, HCGED, 79571-6, 3040-3 ####[facility] [id number] [place] [id number] [place] CBC W Auto Differential pane l (Bld)on 09-12-2023 Basophils (Bld) [#/Vol] 0.04 10*3/uL Normal <0.11 [facility] Comment on above: Order Comment: Speci men Type: BLOOD SPECIMENOrdering Facility: [facility] Address: [address] [place] [address] Performed By: #### 5 7021-8 ####[facility] LABORATORYCLIA [id number] [facility] [place] [address] [place] Basophils/100 WBC (Bld) 0.8 % Normal [facility] Comment on above: Order Comment: Speci men Type: BLOOD SPECIMENOrdering Facility: [facility] Address: [address] [place] [address] Performed By: #### 5 7021-8 ####[facility]ORATORYIA [id number] [place] [address] [place] Differential cell count method Nom (Bld) Auto Normal [facility] Comment on above: Order Comment: Speci men Type: BLOOD SPECIMENOrdering Facility: [facility] Address: [address] [place] [address] Performed By: #### 5 7021-8 ####[facility]ORATORYIA [id number] [place] [id number] [place] Eosinophils (Bld) [#/Vol] 10*3/uL Normal <0.46 [facility] Comment on above: Order Comment: Speci men Type: BLOOD SPECIMENOrdering Facility: [facility] Address: [address] [place] [address] Performed By: #### 5 7021-8 ####[facility] LABORATORYCLIA [id number] [facility] [place] [address] [place] Eosinophils/100 WBC (Bld) 0.2 % Normal [facility] Comment on above: Order Comment: Speci men Type: BLOOD SPECIMENOrdering Facility: [facility] Address: [address] [place] [address] Performed By: #### 5 7021-8 ####[facility] LABORATORYCLIA [id number] [facility] [place] [address] [place] Erythrocyte distribution width (RBC) [Ratio] 13.2 % Normal 11.5-15.0 [facility] Comment on above: Order Comment: Speci men Type: BLOOD SPECIMENOrdering Facility: [facility] Address: [address] [place] [address] Performed By: #### 5 7021-8 ####[facility]ORATORYIA [id number] [place] [address] [place] Hematocrit (Bld) [Volume fraction] 31.9 % Low 36.0-46.0 [facility] Comment on above: Order Comment: Speci men Type: BLOOD SPECIMENOrdering Facility: [facility] Address: [address] [place] [address] Performed By: #### 5 7021-8 ####[facility] [id number] [place] [address] [place] Hemoglobin (Bld) [Mass/Vol] 10.4 g/dL Low 11.5-15.5 [facility] Comment on above: Order Comment: Speci men Type: BLOOD SPECIMENOrdering Facility: [facility] Address: [address] [place] [address] Performed By: #### 5 7021-8 ####[facility] [id number] [address] [place] Immature granulocytes (Bld) [#/Vol] 10*3/uL Normal <0.10 [facility] Comment on above: Order Comment: Speci men Type: BLOOD SPECIMENOrdering Facility: [facility] Address: [address] [place] [address] Performed By: #### 5 7021-8 ####[facility] [id number] [place] [id number] [facility] [place] Immature granulocytes/100 WBC (Bld) 0.4 % Normal [facility] Comment on above: Order Comment: Speci men Type: BLOOD SPECIMENOrdering Facility: [facility] Address: [address] [place] [address] Performed By: #### 5 7021-8 ####[facility]ORATORYIA [id number] [facility] [place] [address] [place] Lymphocytes (Bld) [#/Vol] 0.97 10*3/uL Low 1.00-4.00 [facility] Comment on above: Order Comment: Speci men Type: BLOOD SPECIMENOrdering Facility: [facility] Address: [address] [place] [address] Performed By: #### 5 7021-8 ####[facility] [id number] [place] [address] [place] Lymphocytes/100 WBC (Bld) 18.8 % Normal [facility] Comment on above: Order Comment: Speci men Type: BLOOD SPECIMENOrdering Facility: [facility] Address: [address] [place] [address] Performed By: #### 5 7021-8 ####[facility] [id number] [place] [id number] [place] MCH (RBC) [Entitic mass] 27.8 pg Normal 26.0-34.0 [facility] Comment on above: Order Comment: Speci men Type: BLOOD SPECIMENOrdering Facility: [facility] Address: [address] [place] [address] Performed By: #### 5 7021-8 ####[facility] [id number] [place] [address] [place] MCHC (RBC) [Mass/Vol] 32.6 g/dL Normal 30.5-36.0 [facility] Comment on above: Order Comment: Speci men Type: BLOOD SPECIMENOrdering Facility: [facility] Address: [address] [place] [address] Performed By: #### 5 7021-8 ####[facility]ORATORYIA [id number] [place] [address] [place] MCV (RBC) [Entitic vol] 85.3 fL Normal 80.0-100.0 [facility] Comment on above: Order Comment: Speci men Type: BLOOD SPECIMENOrdering Facility: [facility] Address: [address] [place] [address] Performed By: #### 5 7021-8 ####[facility] LABORATORYCLIA [id number] [place] [address] [place] Monocytes (Bld) [#/Vol] 0.17 10*3/uL Normal <0.87 [facility] Comment on above: Order Comment: Speci men Type: BLOOD SPECIMENOrdering Facility: [facility] Address: [address] [place] [address] Performed By: #### 5 7021-8 ####[facility]ORATORYIA [id number] [place] [id number] [place] Monocytes/100 WBC (Bld) 3.3 % Normal [facility] Comment on above: Order Comment: Speci men Type: BLOOD SPECIMENOrdering Facility: [facility] Address: [address] [place] [address] Performed By: #### 5 7021-8 ####[facility] [id number] [place] [address] [place] Neutrophils (Bld) [#/Vol] 3.94 10*3/uL Normal 1.45-7.50 [facility] Comment on above: Order Comment: Speci men Type: BLOOD SPECIMENOrdering Facility: [facility] Address: [address] [place] [address] Performed By: #### 5 7021-8 ####[facility]ATORYIA [id number] [place] [address] [place] Neutrophils/100 WBC (Bld) 76.5 % Normal [facility] Comment on above: Order Comment: Speci men Type: BLOOD SPECIMENOrdering Facility: [facility] Address: [address] [place] [address] Performed By: #### 5 7021-8 ####[facility] LABORATORYCLIA [id number] [place] [address] [place] Nucleated RBC (Bld) [#/Vol] 10*3/uL Normal <0.01 [facility] Comment on above: Order Comment: Speci men Type: BLOOD SPECIMENOrdering Facility: [facility] Address: [address] [place] [address] Performed By: #### 5 7021-8 ####[facility] LABORATORYCLIA [id number] [place] [address] [place] Nucleated RBC/100 WBC (Bld) [Ratio] 0.0 /100 WBC Normal [facility] Comment on above: Order Comment: Speci men Type: BLOOD SPECIMENOrdering Facility: [facility] Address: [address] [place] [address] Performed By: #### 5 7021-8 ####[facility] [id number] [place] [address] [place] Platelet mean volume (Bld) [Entitic vol] 10.0 fL Normal 9.0-12.7 [facility] Comment on above: Order Comment: Speci men Type: BLOOD SPECIMENOrdering Facility: [facility] Address: [address] [place] [address] Performed By: #### 5 7021-8 ####[facility]ORATORYIA [id number] [place] [address] [place] Platelets (Bld) [#/Vol] 225 10*3/uL Normal 150-400 [facility] Comment on above: Order Comment: Speci men Type: BLOOD SPECIMENOrdering Facility: [facility] Address: [address] [place] [address] Performed By: #### 5 7021-8 ####[facility] LABORATORYCLIA [id number] [place] [address] [place] RBC (Bld) [#/Vol] 3.74 10*6/uL Low 3.90-5.20 [facility] Comment on above: Order Comment: Speci men Type: BLOOD SPECIMENOrdering Facility: [facility] Address: [address] [place] [address] Performed By: #### 5 7021-8 ####[facility] LABORATORYCLIA [id number] [facility] [place] [address] [place] WBC (Bld) [#/Vol] 5.15 10*3/uL Normal 3.70-11.00 [facility] Comment on above: Order Comment: Speci men Type: BLOOD SPECIMENOrdering Facility: [facility] Address: [address] [place] [address] Performed By: #### 5 7021-8 ####[facility]ORATORYIA [id number] [place] [address] [facility] Comprehensive metabolic 2000 panelon 09-12-2023 Albumin [Mass/Vol] 4.0 g/dL Normal 3.9-4.9 [facility] Comment on above: Order Comment: Speci men Type: BLOOD SPECIMENOrdering Facility: [facility] Address: [address] [place] [address] Performed By: #### 1 9123-9, HCGED, 34750-8, 3040-3 ####[facility] [id number] [place] [address] [place] ALP [Catalytic activity/Vol] 56 U/L Normal 34-123 [facility] Comment on above: Order Comment: Speci men Type: BLOOD SPECIMENOrdering Facility: [facility] Address: [address] [place] [address] Performed By: #### 1 9123-9, HCGED, 61643-4, 3040-3 ####[facility]ORATORYIA [id number] [facility] [place] [address] [place] ALT [Catalytic activity/Vol] 38 U/L Normal 7-38 [facility] Comment on above: Order Comment: Speci men Type: BLOOD SPECIMENOrdering Facility: [facility] Address: [address] [place] [address] Performed By: #### 1 9123-9, HCGED, 09939-4, 3040-3 ####[facility]ORATORYIA [id number] [place] [address] [place] Anion gap [Moles/Vol] 10 mmol/L Normal 8-15 [facility] Comment on above: Order Comment: Speci men Type: BLOOD SPECIMENOrdering Facility: [facility] Address: [address] [place] [address] Performed By: #### 1 9123-9, HCGED, 01024-1, 3040-3 ####[facility] LABORATORYCLIA [id number] [place] [address] [place] AST [Catalytic activity/Vol] 43 U/L High 13-35 [facility] Comment on above: Order Comment: Speci men Type: BLOOD SPECIMENOrdering Facility: [facility] Address: [address] [place] [address] Performed By: #### 1 9123-9, HCGED, 15625-8, 3040-3 ####[facility] LABORATORYCLIA [id number] [place] [address] [place] Bilirubin [Mass/Vol] 0.3 mg/dL Normal 0.2-1.3 [facility] Comment on above: Order Comment: Speci men Type: BLOOD SPECIMENOrdering Facility: [facility] Address: [address] [place] [address] Performed By: #### 1 9123-9, HCGED, 79982-3, 3040-3 ####[facility] LABORATORYCLIA [id number] [place] [address] [place] Calcium [Mass/Vol] 8.4 mg/dL Low 8.5-10.2 [facility] Comment on above: Order Comment: Speci men Type: BLOOD SPECIMENOrdering Facility: [facility] Address: [address] [place] [address] Performed By: #### 1 9123-9, HCGED, 41082-8, 3040-3 ####[facility] LABORATORYCLIA [id number] [place] [address] [place] Chloride [Moles/Vol] 107 mmol/L Normal 98-107 [facility] Comment on above: Order Comment: Speci men Type: BLOOD SPECIMENOrdering Facility: [facility] Address: [address] [place], [place] [address] Performed By: #### 1 9123-9, HCGED, 92704-9, 0-3 ####[facility] LABORATORYIA [id number] [facility] [place] [address] [place] CO2 [Moles/Vol] 21 mmol/L Low 22-30 [facility] Comment on above: Order Comment: Speci men Type: BLOOD SPECIMENOrdering Facility: [facility] Address: [address] [place] [address] Performed By: #### 1 9123-9, HCGED, 79772-0, 0-3 ####[facility]ORATORYIA [id number] [place], [place] [id number] [place] [address] [place] Creatinine [Mass/Vol] 0.67 mg/dL Normal 0.58-0.96 [facility] Comment on above: Order Comment: Speci men Type: BLOOD SPECIMENOrdering Facility: [facility] Address: [address] [place] [address] Performed By: #### 1 9123-9, HCGED, 28143-6, 0-3 ####[facility] [id number] [place], [place] [address] [place] [address] OF [facility] Creatinine and Glomerular filtration rate.predicted panel (S/P/Bld) 118 mL/min/1.73m??? Normal >=60 [facility] l Comment on above: Order Comment: Speci men Type: BLOOD SPECIMENOrdering Facility: [facility] Address: [address] [place] [address] Result Comment: Jessica mated Glomerular Filtration Rate [...] actual GFR. Performed By: #### 1 9123-9, HCGED, 52414-7, 3040-3 ####[facility] LABORATORYCLIA [id number] [facility] [place] [address] [place] Glucose [Mass/Vol] 95 mg/dL Normal 74-99 [facility] Comment on above: Order Comment: Speci men Type: BLOOD SPECIMENOrdering Facility: [facility] Address: [address] [place], [place] [address] Result Comment: The [place] [employer] (ADA) provides guidance for cutoff [...] Standards of Medical Care in Diabetes 2016, [place] [employer]. Diabetes Care. 2016.39(Suppl 1). Performed By: #### 1 9123-9, HCGED, 84339-3, 0-3 ####[facility] LABORATORYCLIA [id number] [place] [address] [place] Potassium [Moles/Vol] 3.9 mmol/L Normal 3.7-5.1 [facility] Comment on above: Order Comment: Speci men Type: BLOOD SPECIMENOrdering Facility: [facility] Address: [address] [place] [address] Performed By: #### 1 9123-9, HCGED, 71271-1, 3040-3 ####[facility] LABORATORYIA [id number] [facility] [place] [address] [place] Protein [Mass/Vol] 6.4 g/dL Normal 6.3-8.0 [facility] Comment on above: Order Comment: Speci men Type: BLOOD SPECIMENOrdering Facility: [facility] Address: [address] [place], [place] [address] Performed By: #### 1 9123-9, HCGED, 68166-3, 3040-3 ####[facility] LABORATORYCLIA [id number] [facility] [place] [address] [place] [facility] Sodium [Moles/Vol] 138 mmol/L Normal 136-144 [facility] Comment on above: Order Comment: Speci men Type: BLOOD SPECIMENOrdering Facility: [facility] Address: [address] [place] [address] Performed By: #### 1 9123-9, HCGED, 81410-6, 3040-3 ####[facility] LABORATORYCLIA [id number] [facility] [place] [address] [place] Urea nitrogen [Mass/Vol] 11 mg/dL Normal 7-21 [facility] Comment on above: Order Comment: Speci men Type: BLOOD SPECIMENOrdering Facility: [facility] Address: [address] [place] [address] Performed By: #### 1 9123-9, HCGED, 75590-8, 0-3 ####[facility] LABORATORYCLIA [id number] [facility] [place] [address] [facility] [place] ED NOTEon 09-12-2023 ED NOTE Normal [facility] ED NOTE Normal [facility] ED NOTE HNO ID: [id number] Author: HARMONY CHAVEZ, DEE Service: ? Author Type: Registered Nurse Type: ED Notes Filed: 09/12/2023 16:23 Note Text: Per LIP, ok to give popsicle. Pt provided with popsicle. Pt tolerated PO well. Normal [facility] ED NOTE HNO ID: [id number] Author: AVTAR LIN, DEE Service: ? Author Type: Registered Nurse Type: ED Notes Filed: 09/12/2023 10:14 Note Text: Patient c/o mid abd pain. Patient was here yesterday . Patient states she was vomiting all night. Normal [facility] ED PROV NOTEon 09-12-2023 ED PROV NOTE Normal [facility] Lipase SerPl-cCncon 09-12-19 24 Lipase [Catalytic activity/Vol] 40 U/L Normal 16-61 [facility] Comment on above: Order Comment: Speci men Type: BLOOD SPECIMENOrdering Facility: [facility] Address: [address] [place] [address] Performed By: #### 1 9123-9, HCGED, 46982-4, 0-3 ####[facility] LABORATORYIA [id number] [place] [address] [place] Magnesium SerPl-mCncon 09-11 Magnesium [Mass/Vol] 1.9 mg/dL Normal 1.7-2.3 [facility] Comment on above: Order Comment: Speci men Type: BLOOD SPECIMENOrdering Facility: [facility] Address: [address] [place] [address] Performed By: #### 1 9123-9, HCGED, 16842-5, 0-3 ####[facility] [id number] [place] [address] [place] CBC W Auto Differential pane l (Bld)on 09-11-2023 Basophils (Bld) [#/Vol] 10*3/uL Normal <0.11 [facility] Comment on above: Order Comment: Speci men Type: BLOOD SPECIMENOrdering Facility: [facility] Address: [address] [place] [address] Performed By: #### 5 7021-8 ####[facility]ITALIA [id number] [place] [address] [place] Basophils/100 WBC (Bld) 0.4 % Normal [facility] Comment on above: Order Comment: Speci men Type: BLOOD SPECIMENOrdering Facility: [facility] Address: [address] [place] [address] Performed By: #### 5 7021-8 ####[facility]ITALIA [id number] [place] [address] [place] Differential cell count method Nom (Bld) Auto Normal [facility] Comment on above: Order Comment: Speci men Type: BLOOD SPECIMENOrdering Facility: [facility] Address: [address] [place] [address] Performed By: #### 5 7021-8 ####[facility] LABORATORYCLIA [id number] [place] [address] [place] Eosinophils (Bld) [#/Vol] 10*3/uL Normal <0.46 [facility] Comment on above: Order Comment: Speci men Type: BLOOD SPECIMENOrdering Facility: [facility] Address: [address] [place] [address] Performed By: #### 5 7021-8 ####[facility] LABORATORYIA [id number] [place] [address] [place] Eosinophils/100 WBC (Bld) 0.4 % Normal [facility] Comment on above: Order Comment: Speci men Type: BLOOD SPECIMENOrdering Facility: [facility] Address: [address] [place] [address] Performed By: #### 5 7021-8 ####[facility] HOSPITALIA [id number] [place] [address] [place] Erythrocyte distribution width (RBC) [Ratio] 13.0 % Normal 11.5-15.0 [facility] Comment on above: Order Comment: Speci men Type: BLOOD SPECIMENOrdering Facility: [facility] Address: [address] [place] [address] Performed By: #### 5 7021-8 ####[facility] [id number] [place] [address] [place] Hematocrit (Bld) [Volume fraction] 34.1 % Low 36.0-46.0 [facility] Comment on above: Order Comment: Speci men Type: BLOOD SPECIMENOrdering Facility: [facility] Address: [address] [place] [address] Performed By: #### 5 7021-8 ####[facility] [id number] [place] [address] [place] Hemoglobin (Bld) [Mass/Vol] 10.9 g/dL Low 11.5-15.5 [facility] Comment on above: Order Comment: Speci men Type: BLOOD SPECIMENOrdering Facility: [facility] Address: [address] [place] [address] Performed By: #### 5 7021-8 ####[facility] [id number] [place] [address] [place] Immature granulocytes (Bld) [#/Vol] 10*3/uL Normal <0.10 [facility] Comment on above: Order Comment: Speci men Type: BLOOD SPECIMENOrdering Facility: [facility] Address: [address] [place] [address] Performed By: #### 5 7021-8 ####[facility] [id number] [place] [id number] [place] Immature granulocytes/100 WBC (Bld) 0.2 % Normal [facility] Comment on above: Order Comment: Speci men Type: BLOOD SPECIMENOrdering Facility: [facility] Address: [address] [place] [address] Performed By: #### 5 7021-8 ####[facility] [id number] [place] [id number] [place] Lymphocytes (Bld) [#/Vol] 0.74 10*3/uL Low 1.00-4.00 [facility] Comment on above: Order Comment: Speci men Type: BLOOD SPECIMENOrdering Facility: [facility] Address: [address] [place] [address] Performed By: #### 5 7021-8 ####[facility] [id number] [place] [id number] [place] Lymphocytes/100 WBC (Bld) 14.6 % Normal [facility] Comment on above: Order Comment: Speci men Type: BLOOD SPECIMENOrdering Facility: [facility] Address: [address] [place] [address] Performed By: #### 5 7021-8 ####[facility]ORYIA [id number] [place] [address] [place] MCH (RBC) [Entitic mass] 27.7 pg Normal 26.0-34.0 [facility] Comment on above: Order Comment: Speci men Type: BLOOD SPECIMENOrdering Facility: [facility] Address: [address] [place] [address] Performed By: #### 5 7021-8 ####[facility]OR[facility]ORYIA [id number] [place] [address] [place] MCHC (RBC) [Mass/Vol] 32.0 g/dL Normal 30.5-36.0 [facility] Comment on above: Order Comment: Speci men Type: BLOOD SPECIMENOrdering Facility: [facility] Address: [address] [place] [address] Performed By: #### 5 7021-8 ####[facility] [id number] [place] [address] [place] MCV (RBC) [Entitic vol] 86.8 fL Normal 80.0-100.0 [facility] Comment on above: Order Comment: Speci men Type: BLOOD SPECIMENOrdering Facility: [facility] Address: [address] [place] [address] Performed By: #### 5 7021-8 ####[facility] [id number] [address] [place] Monocytes (Bld) [#/Vol] 0.18 10*3/uL Normal <0.87 [facility] Comment on above: Order Comment: Speci men Type: BLOOD SPECIMENOrdering Facility: [facility] Address: [address] [place] [address] Performed By: #### 5 7021-8 ####[facility]ORYIA [id number] [address] [place] Monocytes/100 WBC (Bld) 3.6 % Normal [facility] Comment on above: Order Comment: Speci men Type: BLOOD SPECIMENOrdering Facility: [facility] Address: [address] [place] [address] Performed By: #### 5 7021-8 ####[facility] LABORATORYCLIA [id number] [place] [address] [place] Neutrophils (Bld) [#/Vol] 4.09 10*3/uL Normal 1.45-7.50 [facility] Comment on above: Order Comment: Speci men Type: BLOOD SPECIMENOrdering Facility: [facility] Address: [address] [place] [address] Performed By: #### 5 7021-8 ####[facility] LABORATORYCLIA [id number] [facility] [place] [address] [place] Neutrophils/100 WBC (Bld) 80.8 % Normal [facility] Comment on above: Order Comment: Speci men Type: BLOOD SPECIMENOrdering Facility: [facility] Address: [address] [place] [address] Performed By: #### 5 7021-8 ####[facility] LABORATORYCLIA [id number] [facility] [place] [address] [place] Nucleated RBC (Bld) [#/Vol] 0.02 10*3/uL High <0.01 [facility] Comment on above: Order Comment: Speci men Type: BLOOD SPECIMENOrdering Facility: [facility] Address: [address] [place] [address] Performed By: #### 5 7021-8 ####[facility]ORATORYIA [id number] [place] [id number] [place] Nucleated RBC/100 WBC (Bld) [Ratio] 0.4 /100 WBC Normal [facility] Comment on above: Order Comment: Speci men Type: BLOOD SPECIMENOrdering Facility: [facility] Address: [address] [place] [address] Performed By: #### 5 7021-8 ####[facility]OR[facility]ORYIA [id number] [place] [id number] [place] Platelet mean volume (Bld) [Entitic vol] 10.7 fL Normal 9.0-12.7 [facility] Comment on above: Order Comment: Speci men Type: BLOOD SPECIMENOrdering Facility: [facility] Address: [address] [place], [place] [address] Performed By: #### 5 7021-8 ####[facility]ORATORYIA [id number] [place] [address] [place] Platelets (Bld) [#/Vol] 265 10*3/uL Normal 150-400 [facility] Comment on above: Order Comment: Speci men Type: BLOOD SPECIMENOrdering Facility: [facility] Address: [address] [place] [address] Performed By: #### 5 7021-8 ####[facility] [id number] [place] [address] [place] RBC (Bld) [#/Vol] 3.93 10*6/uL Normal 3.90-5.20 [facility] Comment on above: Order Comment: Speci men Type: BLOOD SPECIMENOrdering Facility: [facility] Address: [address] [place] [address] Performed By: #### 5 7021-8 ####[facility] [id number] [place] [address] [place] WBC (Bld) [#/Vol] 5.06 10*3/uL Normal 3.70-11.00 [facility] Comment on above: Order Comment: Speci men Type: BLOOD SPECIMENOrdering Facility: [facility] Address: [address] [place] [address] Performed By: #### 5 7021-8 ####[facility] [id number] [place] [address] [place] ABD/PEL W IVCONon 024 CT ABD/PEL W IVCON Normal [facility] Comprehensive metabolic 2000 panelon 09-11-2023 Albumin [Mass/Vol] 3.8 g/dL Low 3.9-4.9 [facility] Comment on above: Order Comment: Speci men Type: BLOOD SPECIMENOrdering Facility: [facility] Address: [address] [place] [address] Performed By: #### 2 4323-8, 0-3, ####[facility] LABORATORYCLIA [id number] [facility] [place] [address] [place] ALP [Catalytic activity/Vol] 57 U/L Normal 34-123 [facility] Comment on above: Order Comment: Speci men Type: BLOOD SPECIMENOrdering Facility: [facility] Address: [address] [place] [address] Performed By: #### 2 4323-8, 0-3, ####[facility]ORATORYCLIA [id number] [place] [address] [place] ALT [Catalytic activity/Vol] 38 U/L Normal 7-38 [facility] Comment on above: Order Comment: Speci men Type: BLOOD SPECIMENOrdering Facility: [facility] Address: [address] [place] [address] Performed By: #### 2 4323-8, 3, ####[facility] [id number] [place] [address] [place] Anion gap [Moles/Vol] 12 mmol/L Normal 8-15 [facility] Comment on above: Order Comment: Speci men Type: BLOOD SPECIMENOrdering Facility: [facility] Address: [address] [place] [address] Performed By: #### 2 4323-8, 3, ####[facility] LABORATORYCLIA [id number] [facility] [place] [address] [place] AST [Catalytic activity/Vol] 50 U/L High 13-35 [facility] Comment on above: Order Comment: Speci men Type: BLOOD SPECIMENOrdering Facility: [facility] Address: [address] [place] [address] Performed By: #### 2 4323-8, 0-3, ####[facility]ORATORYCLIA [id number] [place] [address] [place] Bilirubin [Mass/Vol] 0.3 mg/dL Normal 0.2-1.3 [facility] Comment on above: Order Comment: Speci men Type: BLOOD SPECIMENOrdering Facility: [facility] Address: [address] [place] [address] Performed By: #### 2 4323-8, 3039-3, ####[facility] LABORATORYCLIA [id number] [place] [address] [place] Calcium [Mass/Vol] 8.4 mg/dL Low 8.5-10.2 [facility] Comment on above: Order Comment: Speci men Type: BLOOD SPECIMENOrdering Facility: [facility] Address: [address] [place] [address] Performed By: #### 2 4323-8, 3, ####[facility]ORATORYCLIA [id number] [place] [address] [place] Chloride [Moles/Vol] 104 mmol/L Normal 98-107 [facility] Comment on above: Order Comment: Speci men Type: BLOOD SPECIMENOrdering Facility: [facility] Address: [address] [place] [address] Performed By: #### 2 4323-8, 3039-04, ####[facility]ORATORYCLIA [id number] [place] [address] [place] CO2 [Moles/Vol] 20 mmol/L Low 22-30 [facility] Comment on above: Order Comment: Speci men Type: BLOOD SPECIMENOrdering Facility: [facility] Address: [address] [place] [address] Performed By: #### 2 4323-8, 3, ####[facility]ORATORYCLIA [id number] [place] [address] [place] Creatinine [Mass/Vol] 0.76 mg/dL Normal 0.58-0.96 [facility] Comment on above: Order Comment: Speci men Type: BLOOD SPECIMENOrdering Facility: [facility] Address: [address] [place] [id number] Performed By: #### 2 4323-8, 3040-3, ####[facility] LABORATORYIA [id number] [place] [address] [place] Creatinine and Glomerular filtration rate.predicted panel (S/P/Bld) 106 mL/min/1.73m??? Normal >=60 [facility] Comment on above: Order Comment: Geraldo marrero Type: BLOOD SPECIMENOrdering Facility: [facility] Address: [address] [place] [address] Result Comment: Jessica mated Glomerular Filtration Rate [...] GFR. Performed By: #### 2 4323-8, 3040-3, ####[facility] LABORATORYIA [id number] [place] [address] [place] Glucose [Mass/Vol] 97 mg/dL Normal 74-99 [facility] Comment on above: Order Comment: Geraldo marrero Type: BLOOD SPECIMENOrdering Facility: [facility] Address: [address] [place] [address] Result Comment: The [employer] (ADA) provides guidance for cutoff [...] Standards of Medical Care in Diabetes 2016, [employer]. Diabetes Care. 2016.39(Suppl 1). Performed By: #### 2 4323-8, 0-3, ####[facility] LABORATORYCLIA [id number] [place] [address] [place] Potassium [Moles/Vol] 4.0 mmol/L Normal 3.7-5.1 [facility] Comment on above: Order Comment: Speci men Type: BLOOD SPECIMENOrdering Facility: [facility] Address: [address] [place] [address] Performed By: #### 2 4323-8, 3039-3, ####[facility]PITALCLIA [id number] [place] [address] [place] Protein [Mass/Vol] 6.3 g/dL Normal 6.3-8.0 [facility] Comment on above: Order Comment: Speci men Type: BLOOD SPECIMENOrdering Facility: [facility] Address: [address] [place] [address] Performed By: #### 2 4323-8, 3, ####[facility] [id number] [place] [address] [place] Sodium [Moles/Vol] 136 mmol/L Normal 136-144 [facility] Comment on above: Order Comment: Speci men Type: BLOOD SPECIMENOrdering Facility: [facility] Address: [address] [place] [address] Performed By: #### 2 4323-8, 3, ####[facility] [id number] [place] [address] [place] Urea nitrogen [Mass/Vol] 13 mg/dL Normal 7-21 [facility] Comment on above: Order Comment: Speci men Type: BLOOD SPECIMENOrdering Facility: [facility] Address: [address] [place] [address] Performed By: #### 2 4323-8, 0-3, ####[facility] LABORATORYIA [id number] [place] [address] [facility] ED NOTEon 09-11-2023 ED NOTE Normal [facility] ED NOTE HNO ID: [id number] Author: AVTAR LIN, DEE Service: ? Author Type: Registered Nurse Type: ED Notes Filed: 09/11/2023 11:47 Note Text: Normal [facility] ED NOTE Normal [facility] ED PROV NOTEon 09-11-2023 ED PROV NOTE Normal [facility] Lipase SerPl-cCncon 09-11-19 24 Lipase [Catalytic activity/Vol] 47 U/L Normal 16-61 [facility] Comment on above: Order Comment: Speci men Type: BLOOD SPECIMENOrdering Facility: [facility] Address: [address] [place] [address] Performed By: #### 2 4323-8, 3040-3, ####[facility]ORATORYCLIA [id number] [place] [address] [facility] Magnesium [Mass/Vol] 1.8 mg/dL Normal 1.7-2.3 [facility] Comment on above: Order Comment: Speci men Type: BLOOD SPECIMENOrdering Facility: [facility] Address: [address] [place] [address] Performed By: #### 2 4323-8, 3040-3, ####[facility]ORATORYCLIA [id number] [place] [address] [place] CNPNon 09-09-2023 CNPN Normal [facility] CNNURSEon 08-30-2023 CNNURSE Normal [facility] CNNURSEon 08-26-2023 CNNURSE Normal [facility] EGD Study observation Narrat iveon 08-26-2023 A31 Gastrointestinal Endoscopy Patient Name: Abbey Garcia Procedure Date: 08/26/2023 3:47 PM Date of : 1990 Admit Type: Outpatient Age: 33 Room: [address] Gender: Female Note Status: Finalized Attending MD: Britt Bradshaw MD, [id number] Procedure: Small bowel enteroscopy Indications: Heartburn Providers: [...] was characterized by healthy appearing mucosa. The smyzqljw-in-oxpchgw limb was examined. The examined jejunum was [...] loss: none. Procedure Code(s): --- Professional --- 51524, Esophagogastroduode noscopy, flexible, transoral; diagnostic, including collection of specimen(s) by brushing or washing, when performed (separate procedure) CPT copyright 2020 [employer]. All rights reserved. The codes documented in this report are preliminary and upon journeyman machinist review may be revised to meet current [...] Initiated On: 08/26/2023 3:47 PM [facility] Radiology Study observation (narrative) [facility] NURSING PROGon 08-26-2023 NURSING PROG Normal [facility] NURSING PROG Normal [facility] NURSING PROG Normal [facility] NURSING PROG Normal [facility] Small bowel enteroscopyon Small bowel enteroscopy Normal [facility] CNPNon 08-23-2023 CNPN Normal [facility] Activated partial thrombopla stin time (aPTT) in platelet poor plasma by coagulation aOrdered By: Claus Obrien on 08-21-2023 aPTT Coag (PPP) [Time] 28.4 s 25.1-36.5 [facility] Comment on above: A hematocrit value g reater than 55% may lead to inaccurate results in coagulation testing. Patients having hematocrit values >55% require a special collection tube for coagulation studies. Please contact the laboratory at [phone] for redraw instructions. Alanine aminotransferase [En zymatic activity/volume] in Serum or PlasmaOrdered By: Claus Obrien on 08-21-2023 ALT [Catalytic activity/Vol] 22 U/L Normal 7-52 [facility] Comment on above: Performed By: #### A CORY, CG, CUU #### [facility] [address] Albumin [Mass/volume] in Ser um or Plasma by Bromocresol green (BCG) dye binding methoOrdered By: Claus Obrien on 08-21-2023 Albumin BCG dye [Mass/Vol] 3.9 g/dL 3.5-5.7 [facility] Alkaline phosphatase [Enzyma tic activity/volume] in Serum or PlasmaOrdered By: Claus Obrien on 08-21-2023 ALP [Catalytic activity/Vol] 51 U/L Normal 34-104 [facility] Comment on above: Performed By: #### A MALLORIEUAJESSICA, [facility], CUU #### [address] Aspartate aminotransferase [ Enzymatic activity/volume] in Serum or PlasmaOrdered By: Claus Obrien on 08-21-2023 AST [Catalytic activity/Vol] 35 U/L Normal 13-39 [facility] Comment on above: Performed By: #### A CORY, [facility], CU[facility] #### [address] Automated basophil %Ordered By: Claus Obrien on 08-21-2023 Basophils/100 WBC (Bld) 1.0 % Normal . [facility] Comment on above: Performed By: #### H EPATIC, MG, LIPASE, CMP, CBC #### [address] Automated basophil countOrde red By: Claus Obrien on 08-21-2023 Basophils (Bld) [#/Vol] 0.0 10*3/uL Normal 0.0-0.2 [facility] Comment on above: Result Comment: PERF ORMED BY: [place] [address] PATHOLOGIST CAKE DECORATOR BAUTISTA BAKER M.D. Performed By: #### H EPATIC, MG, LIPASE, CMP, CBC #### [address] Automated blood monocyte cou ntOrdered By: Claus Obrien on 08-21-2023 Monocytes (Bld) [#/Vol] 0.3 10*3/uL Normal 0.0-0.8 [facility] Comment on above: Performed By: #### H EPATIC, MG, LIPASE, CMP, CBC #### [address] Automated eosinophil %Ordere d By: Claus Obrien on 08-21-2023 Eosinophils/100 WBC (Bld) 2.4 % Normal . [facility] Comment on above: Performed By: #### H EPATIC, MG, LIPASE, CMP, CBC #### [address] Automated eosinophil countOr dered By: Claus Obrien on 08-21-2023 Eosinophils (Bld) [#/Vol] 0.1 10*3/uL Normal 0.0-0.45 [facility] Comment on above: Performed By: #### H EPATIC, MG, LIPASE, CMP, CBC #### [address] Automated monocyte %Ordered By: Claus Obrien on 08-21-2023 Monocytes/100 WBC (Bld) 8.4 % Normal . [facility] Comment on above: Performed By: #### H EPATIC, MG, LIPASE, CMP, CBC #### [address] Automated neutrophil %Ordere d By: Claus Obrien on 08-21-2023 Neutrophils/100 WBC (Bld) 58.0 % Normal . [facility] Comment on above: Performed By: #### H EPATIC, MG, LIPASE, CMP, CBC #### [address] Basic Metabolic Panelon 07-0 Creatinine Clr Calc Pharmacy 115.16 Normal [facility] Comment on above: Performed By: #### A CORY, CG, CUU #### [address] GFR/1.73 sq M.predicted MDRD (S/P/Bld) [Vol rate/Area] mL/min/{1.73_m2} Normal [facility] Comment on above: Performed By: #### A DDFAIZAUAPLUS, [facility], CU[facility] #### [address] Bilirubin Test strip Ql (U)O rdered By: Claus Obrien on 08-21-2023 Bilirubin Ql (U) Negative Negative [facility] Bilirubin.direct [Mass/volum e] in Serum or PlasmaOrdered By: Claus Obrien on 08-21-2023 Bilirubin.direct [Mass/Vol] 0.10 mg/dL 0.03-0.18 [facility] Bilirubin.total [Mass/volume ] in Serum or PlasmaOrdered By: Claus Obrien on 08-21-2023 Bilirubin [Mass/Vol] 0.3 mg/dL Normal 0.3-1.0 [facility] Comment on above: Performed By: #### A DDFAIZAUAPLUS, [facility], [facility] #### [address] abdomen pelvis w conon CT abdomen pelvis w [place] [address] CT Scan Report Signed Patient: Abbey Garcia MR#: [id number] : 1990 Acct:[id number] Age/Sex: 33 / F ADM Date: 08/21/23 Loc: ER Room: Type: [facility] ER Attending Dr: Copies to: Claus Obrien [...] Maricruz Hutchinson M.D.08/21/2023 12:03 PM Dictation Location: [place] [address] Transcribed By: SULEMA 08/21/23 1203 Dictated By: Maricruz Hutchinson MD 08/21/23 1157 Signed By: 08/21/23 1203 Normal [facility] Calcium [Mass/volume] in Ser um or PlasmaOrdered By: Claus Obrien on 08-21-2023 Calcium [Mass/Vol] 8.4 mg/dL Low 8.6-10.3 [facility] Comment on above: Performed By: #### A CORY, ELIS, CUU #### [facility] [address] Carbon dioxide, total [Moles /volume] in Serum or PlasmaOrdered By: Claus Obrien on 08-21-2023 CO2 [Moles/Vol] 21.7 mmol/L Normal 21.0-31.0 [facility] Comment on above: Performed By: #### A BRITTANIE RAYCG, CUU #### [facility] [address] Chloride [Moles/volume] in S elder or PlasmaOrdered By: Claus Obrien on 08-21-2023 Chloride [Moles/Vol] 109 mmol/L High 98-107 [facility] Comment on above: Performed By: #### A DDONUAPLUS, UHCG, CUU #### [facility] [address] Choriogonadotropin.beta subu nit [Units/volume] in Serum or PlasmaOrdered By: Claus Obrien on 08-21-2023 HCG.beta subunit Qn Negative [facility] Color of Urine by AutoOrdere d By: Claus Obrien on 08-21-2023 Color (U) Colorless Normal Yellow [facility] Comment on above: Order Comment: Name Collection Type:: Clean-Voided Midstream Performed By: #### A DDONUAPLUS, UHCG, CUU #### [address] Complete Blood Count Auto Di ffon 08-21-2023 Mean Corpuscular HGB Conc 33.6 g/dL Normal 32.0-35.0 [facility] Comment on above: Performed By: #### H EPATIC, MG, LIPASE, CMP, CBC #### [address] Monocytes/100 WBC (Bld) 14.35 % Normal 0.00-20.00 [facility] Comment on above: Performed By: #### H EPATIC, MG, LIPASE, CMP, CBC #### [facility] [address] NRBC% 0.1 /100{WBC} Normal 0-0.5 [facility] Comment on above: Performed By: #### H EPATIC, MG, LIPASE, CMP, CBC #### [address] Creatinine [Mass/volume] in Serum or PlasmaOrdered By: Claus Obrien on 08-21-2023 Creatinine [Mass/Vol] 0.73 mg/dL Normal 0.60-1.20 [facility] Comment on above: Performed By: #### A DDONUAPLUS, UHCG, CUU #### [facility] [address] Erythrocyte distribution wid th [Ratio] by Automated countOrdered By: Claus Obrien on 08-21-2023 Erythrocyte distribution width (RBC) [Ratio] 13.7 % Normal 11.9-15.3 [facility] Comment on above: Performed By: #### H EPATIC, MG, LIPASE, CMP, CBC #### [facility] [address] Erythrocytes [#/volume] in B lood by Automated countOrdered By: Claus Obrien on 08-21-2023 RBC (Bld) [#/Vol] 3.89 10*6/uL Normal 3.60-5.00 [facility] Comment on above: Performed By: #### H EPATIC, MG, LIPASE, CMP, CBC #### [facility] [address] Glucose [Mass/volume] in Ser um or PlasmaOrdered By: Claus Obrien on 08-21-2023 Glucose [Mass/Vol] 83 mg/dL Normal 70-100 [facility] Comment on above: ADA recommended refe rence rangeRandom Glucose Reference Range is dependent on time and content of last meal. Glucose of more than 200 mg/dL in a nonstressed, ambulatory subject supports the diagnosis of Diabetes Mellitus. Result Comment: [place] Glucose Reference Range is dependent on time and content of last meal. Glucose of more than 200 mg/dL in a nonstressed, ambulatory subject supports the diagnosis of Diabetes Mellitus. ADA recommended reference range Performed By: #### A DDONUAPLUS, UHCG, CUU #### [facility] [address] [place] [address] [place] Glucose [Mass/volume] in Uri ne by Test stripOrdered By: Cluas Obrien on 08-21-2023 Glucose Test strip (U) [Mass/Vol] Normal mg/dL Normal [facility] HCG ( test) IA.rapi d Ql (U)Ordered By: Claus Obrien on 08-21-2023 HCG ( test) Ql (U) Negative [facility] HCG,Qualitative Serumon HCG,Qualitative Serum Negative Normal [facility] Comment on above: Result Comment: PERF ORMED BY: [place] [address] PATHOLOGIST CAKE DECORATOR BAUTISTA BAKER M.D. Performed By: #### A DDONUAPLUS CG, CUU #### [address] HCG,Urineon 08-21-2023 Beta HCG ( test) Ql (U) Negative Normal [facility] Comment on above: Order Comment: Name Collection Type:: Clean-Voided Midstream Result Comment: PERF ORMED BY: [place] [address] PATHOLOGIST CAKE DECORATOR BAUTISTA BAKER M.D. Performed By: #### A DDONUAPLUS, ElroyG, CUU #### [address] Hematocrit [Volume Fraction] of Blood by Automated countOrdered By: Calus Orbien on 08-21-2023 Hematocrit (Bld) [Volume fraction] 33.5 % Low 34.0-46.4 [facility] Comment on above: Performed By: #### H EPATIC, MG, LIPASE, CMP, CBC #### [address] Hemoglobin Test strip Ql (U) Ordered By: Claus Obrien on 08-21-2023 Hemoglobin Ql (U) Negative Negative [facility] Hemoglobin [Mass/volume] in BloodOrdered By: Claus Obrien on 08-21-2023 Hemoglobin (Bld) [Mass/Vol] 11.3 g/dL Low 11.8-15.4 [facility] Comment on above: Performed By: #### H EPATIC, MG, LIPASE, CMP, CBC #### [address] Hepatic Panelon 08-21-2023 Albumin [Mass/Vol] 3.9 g/dL Normal 3.5-5.7 [facility] Comment on above: Performed By: #### A DDONUAPLUS, UHCG, CUU #### [facility] [address] Bilirubin,Indirect 0.2 mg/dL Normal [facility] Comment on above: Performed By: #### A DDONUAPLUS, UHCG, CUU #### [facility] [address] [place] [address] Bilirubin.indirect [Mass/Vol] 0.10 mg/dL Normal 0.03-0.18 [facility] Comment on above: Performed By: #### A DDONUAPLUS, UHCG, CUU #### [address] INR in Platelet poor plasma by Coagulation assayOrdered By: Claus Obrien on 08-21-2023 INR Coag (PPP) [Relative time] 1.1 {INR} Normal [facility] Comment on above: INR Therapeutic [...] By: #### A DDONUAPLUS, UHCG, CUU #### [address] Ketones [Presence] in Urine by Test stripOrdered By: Claus Obrien on 08-21-2023 Ketones Ql (U) Negative Normal Negative [facility] Comment on above: Order Comment: Name Collection Type:: Clean-Voided Midstream Performed By: #### A DDONUAPLUS, UHCG, CUU #### [address] Leukocyte esterase [Presence ] in Urine by Test stripOrdered By: Claus Obrien on 08-21-2023 Leukocyte esterase Test strip Ql (U) Negative Normal Negative [facility] Comment on above: Order Comment: Name Collection Type:: Clean-Voided Midstream Performed By: #### A DDONUAPLUS, UHCG, CUU #### [address] Leukocytes [#/volume] correc darvin for nucleated erythrocytes in Blood by Automated counOrdered By: Claus Obrien on 08-21-2023 WBC corrected for nucl RBC Auto (Bld) [#/Vol] 3.9 10*3/uL 3.8-11.6 [facility] Leukocytes [#/volume] in Blo od by Automated countOrdered By: Claus Obrien on 08-21-2023 WBC (Bld) [#/Vol] 3.9 10*3/uL Normal 3.8-11.6 [facility] Comment on above: Performed By: #### H EPATIC, MG, LIPASE, CMP, CBC #### [address] Lipase [Enzymatic activity/v olume] in Serum or PlasmaOrdered By: Claus Obrien on 08-21-2023 Lipase [Catalytic activity/Vol] 43.0 U/L Normal 11.0-82.0 [facility] Comment on above: Performed By: #### A DDONUAPLUS, UHCG, CUU #### [address] Lymphocytes [#/volume] in Bl ood by Automated countOrdered By: Claus Obrien on 08-21-2023 Lymphocytes (Bld) [#/Vol] 1.2 10*3/uL Normal 1.00-4.8 [facility] Comment on above: Performed By: #### H EPATIC, MG, LIPASE, CMP, CBC #### [address] [place] [address] [place] Lymphocytes/100 leukocytes i n Blood by Automated countOrdered By: Claus Obrien on 08-21-2023 Lymphocytes/100 WBC (Bld) 30.2 % Normal . [facility] Comment on above: Performed By: #### H EPATIC, MG, LIPASE, CMP, CBC #### [address] MCH [Entitic mass] by Automa darvin countOrdered By: Claus Obrien on 08-21-2023 MCH (RBC) [Entitic mass] 29.0 pg Normal 24.7-34.3 [facility] Comment on above: Performed By: #### H EPATIC, MG, LIPASE, CMP, CBC #### [address] MCHC Auto (RBC) [Mass/Vol]Or dered By: Claus Obrien on 08-21-2023 MCHC (RBC) [Mass/Vol] 33.6 g/dL 32.0-35.0 [facility] MCV [Entitic volume] by Auto mated countOrdered By: Claus Obrien on 08-21-2023 MCV (RBC) [Entitic vol] 86.2 fL Normal 80-100 [facility] Comment on above: Performed By: #### H EPATIC, MG, LIPASE, CMP, CBC #### [address] Monocyte distribution width [Entitic volume] in Blood by AutomatedOrdered By: Claus Obrien on 08-21-2023 Monocyte distribution width Auto (Bld) [Entitic vol] 14.35 % 0.00-20.00 [facility] Neutrophils [#/volume] in Bl ood by Automated countOrdered By: Claus Obrien on 08-21-2023 Neutrophils (Bld) [#/Vol] 2.3 10*3/uL Normal 1.8-7.7 [facility] Comment on above: Performed By: #### H EPATIC, MG, LIPASE, CMP, CBC #### [address] Nitrite Test strip Ql (U)Ord ered By: Claus Obrien on 08-21-2023 Nitrite Ql (U) Negative Negative [facility] No Panel InformationOrdered By: Claus Obrien on 08-21-2023 Estimated GFR (CKD-EPI) > 60.0 mL/Min [facility] Creatinine Clearance (Chem 115.16 [facility] Nucleated erythrocytes [Pres ence] in Blood by Automated countOrdered By: Claus Obrien on 08-21-2023 Nucleated RBC Auto Ql (Bld) 0.1 /100{WBC} 0-0.5 [facility] Partial Thromboplastin Timeo n 08-21-2023 aPTT Coag (Bld) [Time] 28.4 s Normal 25.1-36.5 [facility] Comment on above: Result Comment: A he matocrit value greater than 55% may lead to inaccurate results in coagulation testing. Patients having hematocrit values >55% require a special collection tube for coagulation studies. Please contact the laboratory at [phone] for redraw instructions. PERFORMED BY: [place] [address] PATHOLOGIST CAKE DECORATOR BAUTISTA BAKER M.D. Performed By: #### A DDONUAJESSICA, CG, CUU #### [place] [address] [place] Platelet mean volume [Entiti c volume] in Blood by Automated countOrdered By: Claus Obrien on 08-21-2023 Platelet mean volume (Bld) [Entitic vol] 8.9 fL Normal 6.3-10.7 [facility] Comment on above: Performed By: #### H EPATIC, MG, LIPASE, CMP, CBC #### [facility] [address] [place] [address] [place] Platelets [#/volume] in Bloo d by Automated countOrdered By: Claus Obrien on 08-21-2023 Platelets (Bld) [#/Vol] 208 10*3/uL Normal 150-450 [facility] Comment on above: Performed By: #### H EPATIC, MG, LIPASE, CMP, CBC #### [facility] [address] [place] [address] [place] Potassium [Moles/volume] in Serum or PlasmaOrdered By: Claus Obrien on 08-21-2023 Potassium [Moles/Vol] 3.6 mmol/L Normal 3.5-5.1 [facility] Comment on above: Performed By: #### A DDONUAPLUS, UHCG, CUU #### [address] Protein Test strip (U) [Mass /Vol]Ordered By: Claus Obrien on 08-21-2023 Protein (U) [Mass/Vol] Negative Negative [facility] Protein [Mass/volume] in Ser um or PlasmaOrdered By: Claus Obrien on 08-21-2023 Protein [Mass/Vol] 6.4 g/dL Normal 6.4-8.9 [facility] Comment on above: Performed By: #### A DDONUAPLUS, UHCG, CUU #### [address] Prothrombin time (PT)Ordered By: Claus Obrien on 08-21-2023 PT Coag (PPP) [Time] 12.5 s Normal 9.0-12.9 [facility] Comment on above: A hematocrit value g reater than 55% may lead to inaccurate results in coagulation testing. Patients having hematocrit values >55% require a special collection tube for coagulation studies. Please contact the laboratory at [phone] for redraw instructions. Result Comment: A he matocrit value greater than 55% may lead to inaccurate results in coagulation testing. Patients having hematocrit values >55% require a special collection tube for coagulation studies. Please contact the laboratory at [phone] for redraw instructions. Performed By: #### A DDONUAPLUS, UHCG, CUU #### [address] Serum globulin measurement b y calculation (mass/volume)Ordered By: Claus Obrien on 08-21-2023 Globulin (S) [Mass/Vol] 2.5 g/dL Normal [facility] Comment on above: Performed By: #### A DDONUAPLUS, UHCG, CUU #### [address] Serum or plasma albumin/glob ulin mass ratioOrdered By: Claus Obrien on 08-21-2023 Albumin/Globulin [Mass ratio] 1.6 {ratio} Normal [facility] Comment on above: Performed By: #### A JOSESITO RAY, CUU #### [address] Serum or plasma anion gap de terminationOrdered By: Claus Obrien on 08-21-2023 Anion gap [Moles/Vol] 8.9 mmol/L Normal 6.0-15.0 [facility] Comment on above: Performed By: #### A JOSESITO RAY, CUU #### [address] Serum or plasma non-glucuron idated bilirubin measurement (mass/volume)Ordered By: Claus Obrien on 08-21-2023 Bilirubin.indirect [Mass/Vol] 0.2 mg/dL [facility] Sodium [Moles/volume] in Ser um or PlasmaOrdered By: Claus Obrien on 08-21-2023 Sodium [Moles/Vol] 136 mmol/L Normal 136-145 [facility] Comment on above: Performed By: #### A JOSESITO RAY, CUU #### [address] Specific gravity Test strip (U) [Rel density]Ordered By: Claus Obrien on 08-21-2023 Specific gravity (U) [Rel density] 1.004 1.001-1.030 [facility] Urea nitrogen [Mass/volume] in Serum or PlasmaOrdered By: Claus Obrien on 08-21-2023 Urea nitrogen [Mass/Vol] 8 mg/dL Normal 7-25 [facility] Comment on above: Performed By: #### A JOSESITO RAY, CUU #### [address] Urinalysison 08-21-2023 Bilirubin,Urine Negative Normal Negative [facility] Comment on above: Order Comment: Name Collection Type:: Clean-Voided Midstream Performed By: #### A DDONUAPLUS, UHCG, CUU #### [address] Glucose Ql (U) Normal Normal Normal [facility] Comment on above: Order Comment: Name Collection Type:: Clean-Voided Midstream Performed By: #### A DDONUAPLUS, UHCG, CUU #### [place] [address] [place] Nitrite,Urine Negative Normal Negative [facility] Comment on above: Order Comment: Name Collection Type:: Clean-Voided Midstream Performed By: #### A DDONUAPLUS, UHCG, CUU #### [address] Occult Blood,Urine Negative Normal Negative [facility] Comment on above: Order Comment: Name Collection Type:: Clean-Voided Midstream Performed By: #### A DDONUAPLUS, UHCG, CUU #### [place] [address] [place] Protein,Urine Negative Normal Negative [facility] Comment on above: Order Comment: Name Collection Type:: Clean-Voided Midstream Performed By: #### A DDONUAPLUS, UHCG, CUU #### [place] [address] [place] Specificy [place],Urine 1.004 Normal 1.001-1.030 [facility] Comment on above: Order Comment: Name Collection Type:: Clean-Voided Midstream Performed By: #### A DDONUAPLUS, UHCG, CUU #### [place] [address] [place] Urobilinogen,Urine Normal Normal Normal [facility] Comment on above: Order Comment: Name Collection Type:: Clean-Voided Midstream Performed By: #### A DDONUAPLUS, UHCG, CUU #### [address] Urine appearanceOrdered By: Claus Obrien on 08-21-2023 Appearance (U) Clear Normal Clear [facility] Comment on above: Order Comment: Name Collection Type:: Clean-Voided Midstream Performed By: #### A JOSESITO RAY CUU #### [address] Urobilinogen Test strip (U) [Mass/Vol]Ordered By: Claus Obrien on 08-21-2023 Urobilinogen (U) [Mass/Vol] Normal mg/dL Normal [facility] pH of Urine by Test stripOrd ered By: Claus Obrien on 08-21-2023 pH (U) 6.5 [pH] Normal 5.0-9.0 [facility] Comment on above: Order Comment: Name Collection Type:: Clean-Voided Midstream Performed By: #### A JOSESITO RAY, CUU #### [address] CNPNon 08-18-2023 CNPN Normal [facility] Alanine aminotransferase [En zymatic activity/volume] in Serum or PlasmaOrdered By: Shaan Sabillon on 08-14-2023 ALT [Catalytic activity/Vol] 21 U/L Normal 7-52 [facility] Comment on above: Performed By: #### A JOSESITO RAY CUU #### [address] Albumin [Mass/volume] in Ser um or Plasma by Bromocresol green (BCG) dye binding methoOrdered By: Shaan Sabillon on 08-14-2023 Albumin BCG dye [Mass/Vol] 4.2 g/dL 3.5-5.7 [facility] Alkaline phosphatase [Enzyma tic activity/volume] in Serum or PlasmaOrdered By: Shaan Sabillon on 08-14-2023 ALP [Catalytic activity/Vol] 59 U/L Normal 34-104 [facility] Comment on above: Performed By: #### A JOSESITO RAY, CUU #### [address] Aspartate aminotransferase [ Enzymatic activity/volume] in Serum or PlasmaOrdered By: Shaan Sabillon on 08-14-2023 AST [Catalytic activity/Vol] 32 U/L Normal 13-39 [facility] Comment on above: Performed By: #### A JOSESITO RAY, CUU #### [address] Automated basophil %Ordered By: Shaan Sabillon on 08-14-2023 Basophils/100 WBC (Bld) 0.6 % Normal . [facility] Comment on above: Performed By: #### A CORY ELIS, CUU #### [address] Automated basophil countOrde red By: Shaan Sabillon on 08-14-2023 Basophils (Bld) [#/Vol] 0.0 10*3/uL Normal 0.0-0.2 [facility] Comment on above: Result Comment: PERF ORMED BY: [place] [address] PATHOLOGIST CAKE DECORATOR BAUTISTA BAKER M.D. Performed By: #### A CORY ELIS, CUU #### [address] Automated blood monocyte cou ntOrdered By: Shaan Sabillon on 08-14-2023 Monocytes (Bld) [#/Vol] 0.5 10*3/uL Normal 0.0-0.8 [facility] Comment on above: Performed By: #### A JOSESITO RAY, CUU #### [address] Automated eosinophil %Ordere d By: Shaan Sabillon on 08-14-2023 Eosinophils/100 WBC (Bld) 0.7 % Normal . [facility] Comment on above: Performed By: #### A CORY ELIS, CUU #### [address] Automated eosinophil countOr dered By: Shaan Sabillon on 08-14-2023 Eosinophils (Bld) [#/Vol] 0.0 10*3/uL Normal 0.0-0.45 [facility] Comment on above: Performed By: #### A JOSESITO RAY, CUU #### [address] Automated monocyte %Ordered By: Shaan Sabillon on 08-14-2023 Monocytes/100 WBC (Bld) 7.0 % Normal . [facility] Comment on above: Performed By: #### A JOSESITO RAY, CUU #### [address] Automated neutrophil %Ordere d By: Shaan Sabillon on 08-14-2023 Neutrophils/100 WBC (Bld) 54.4 % Normal . [facility] Comment on above: Performed By: #### A JOSESITO RAY, CUU #### [address] Basic Metabolic Panelon 07-17 Creatinine Clr Calc Pharmacy 116.71 Normal [facility] Comment on above: Performed By: #### A CORY ELIS, CUU #### [address] GFR/1.73 sq M.predicted MDRD (S/P/Bld) [Vol rate/Area] mL/min/{1.73_m2} Normal [facility] Comment on above: Performed By: #### A CORY ELIS, CUU #### [address] Bilirubin Test strip Ql (U)O rdered By: Shaan Sabillon on 08-14-2023 Bilirubin Ql (U) Negative Negative [facility] Bilirubin.direct [Mass/volum e] in Serum or PlasmaOrdered By: Shaan Sabillon on 08-14-2023 Bilirubin.direct [Mass/Vol] 0.10 mg/dL 0.03-0.18 [facility] Bilirubin.total [Mass/volume ] in Serum or PlasmaOrdered By: Shaan Sabillon on 08-14-2023 Bilirubin [Mass/Vol] 0.3 mg/dL Normal 0.3-1.0 [facility] Comment on above: Performed By: #### A DDFAIZAUAJESSICA, CG, JERONIMOU #### [facility] [address] abdomen pelvis w conon CT abdomen pelvis w con [facility] [place] [address] [place] [address] CT Scan Report Signed Patient: Abbey Garcia MR#: [id number] : 1990 Acct:[id number] Age/Sex: 33 / F ADM Date: 08/14/23 Loc: ER Room: Type: [facility] ER Attending Dr: Copies to: Shaan Sabillon [...] Medel Jr., D.ORenetta08/14/2023 5:38 PM Dictation Location: [place] [address] Transcribed By: SULEMA 08/14/231737 Dictated By: Cornel Medel Jr, 08/14/23 173 Signed By: 08/14/231737 Normal [facility] Calcium [Mass/volume] in Ser um or PlasmaOrdered By: Shaan Sabillon on 08-14-2023 Calcium [Mass/Vol] 8.7 mg/dL Normal 8.6-10.3 [facility] Comment on above: Performed By: #### A DDONBRITTANIE MAYSCG, CUU #### [address] Carbon dioxide, total [Moles /volume] in Serum or PlasmaOrdered By: Shaan Sabillon on 08-14-2023 CO2 [Moles/Vol] 21.8 mmol/L Normal 21.0-31.0 [facility] Comment on above: Performed By: #### A DDONBRITTANIE MAYSCG, CUU #### [place] [address] [place] Chloride [Moles/volume] in S elder or PlasmaOrdered By: Shaan Sabillon on 08-14-2023 Chloride [Moles/Vol] 110 mmol/L High 98-107 [facility] Comment on above: Performed By: #### A DDONDAVON, BRITTANIECG, CUU #### [address] Color of Urine by AutoOrdere d By: Shaan Sabillon on 08-14-2023 Color (U) Light-yellow Normal Yellow [facility] Comment on above: Order Comment: Name Collection Type:: Clean-Voided Midstream Performed By: #### A DDONUAPLUS, UHCG, CUU #### [address] Complete Blood Count Auto Di ffon 08-14-2023 Mean Corpuscular HGB Conc 33.4 g/dL Normal 32.0-35.0 [facility] Comment on above: Performed By: #### A DDONUAPLUS, UHCG, CUU #### [place] [address] [place] Monocytes/100 WBC (Bld) 16.29 % Normal 0.00-20.00 [facility] Comment on above: Performed By: #### A ALIYAH RAYG, CUU #### [address] NRBC% 0.0 /100{WBC} Normal 0-0.5 [facility] Comment on above: Performed By: #### A ALIYAH RAYG, CUU #### [address] Creatinine [Mass/volume] in Serum or PlasmaOrdered By: Shaan Sabillon on 08-14-2023 Creatinine [Mass/Vol] 0.72 mg/dL Normal 0.60-1.20 [facility] Comment on above: Performed By: #### A ALIYAH RAYG, CUU #### [address] Erythrocyte distribution wid th [Ratio] by Automated countOrdered By: Shaan Sabillon on 08-14-2023 Erythrocyte distribution width (RBC) [Ratio] 14.0 % Normal 11.9-15.3 [facility] Comment on above: Performed By: #### A JOSESITO RAY, CUU #### [address] Erythrocytes [#/volume] in B lood by Automated countOrdered By: Shaan Sabillon on 08-14-2023 RBC (Bld) [#/Vol] 3.99 10*6/uL Normal 3.60-5.00 [facility] Comment on above: Performed By: #### A BRITTANIE RAYCG, CUU #### [address] Glucose [Mass/volume] in Ser um or PlasmaOrdered By: Shaan Sabillon on 08-14-2023 Glucose [Mass/Vol] 82 mg/dL Normal 70-100 [facility] Comment on above: ADA recommended refe rence rangeRandom Glucose Reference Range is dependent on time and content of last meal. Glucose of more than 200 mg/dL in a nonstressed, ambulatory subject supports the diagnosis of Diabetes Mellitus. Result Comment: [facility] Glucose Reference Range is dependent on time and content of last meal. Glucose of more than 200 mg/dL in a nonstressed, ambulatory subject supports the diagnosis of Diabetes Mellitus. ADA recommended reference range Performed By: #### A DDONUAPLUS, UHCG, CUU #### [address] Glucose [Mass/volume] in Uri ne by Test stripOrdered By: Shaan Sabillon on 08-14-2023 Glucose Test strip (U) [Mass/Vol] Normal mg/dL Normal [facility] Hematocrit [Volume Fraction] of Blood by Automated countOrdered By: Shaan Sabillon on 08-14-2023 Hematocrit (Bld) [Volume fraction] 34.7 % Normal 34.0-46.4 [facility] Comment on above: Performed By: #### A DDONUAPLUS, UHCG, CUU #### [address] Hemoglobin Test strip Ql (U) Ordered By: Shaan Sabillon on 08-14-2023 Hemoglobin Ql (U) Negative Negative [facility] Hemoglobin [Mass/volume] in BloodOrdered By: Shaan Sabillon on 08-14-2023 Hemoglobin (Bld) [Mass/Vol] 11.6 g/dL Low 11.8-15.4 [facility] Comment on above: Performed By: #### A DDONUAPLUS, UHCG, CUU #### [address] Hepatic Panelon 08-14-2023 Albumin [Mass/Vol] 4.2 g/dL Normal 3.5-5.7 [facility] Comment on above: Performed By: #### A DDONUAPLUS, UHCG, CUU #### [address] Bilirubin,Indirect 0.2 mg/dL Normal [facility] Comment on above: Performed By: #### A DDONUAPLUS, UHCG, CUU #### [facility] [address] [place] [address] [place] Bilirubin.indirect [Mass/Vol] 0.10 mg/dL Normal 0.03-0.18 [facility] Comment on above: Performed By: #### A DDONUAPLUS, UHCG, CUU #### [place] [address] [place] Ketones [Presence] in Urine by Test stripOrdered By: Shaan Sabillon on 08-14-2023 Ketones Ql (U) Negative Normal Negative [facility] Comment on above: Order Comment: Name Collection Type:: Clean-Voided Midstream Performed By: #### A DDONSHONAPLUS, UHCG, CUU #### [place] [address] [place] Lactate [Moles/volume] in Se rum or PlasmaOrdered By: Shaan Sabillon on 08-14-2023 Lactate [Moles/Vol] 0.6 mmol/L Normal 0.5-2.2 [facility] Comment on above: Result Comment: PERF ORMED BY: [place] [address] PATHOLOGIST CAKE DECORATOR BAUTISTA BAKER M.D. Performed By: #### A DDONUAPLUS, UHCG, CUU #### [address] Leukocyte esterase [Presence ] in Urine by Test stripOrdered By: Shaan Sabillon on 08-14-2023 Leukocyte esterase Test strip Ql (U) Negative Normal Negative [facility] Comment on above: Order Comment: Name Collection Type:: Clean-Voided Midstream Performed By: #### A DDONUAPLUS, UHCG, CUU #### [place] [address] [place] Leukocytes [#/volume] correc darvin for nucleated erythrocytes in Blood by Automated counOrdered By: Shaan Sabillon on 08-14-2023 WBC corrected for nucl RBC Auto (Bld) [#/Vol] 6.6 10*3/uL 3.8-11.6 [facility] Leukocytes [#/volume] in Blo od by Automated countOrdered By: Shaan Sabillon on 08-14-2023 WBC (Bld) [#/Vol] 6.6 10*3/uL Normal 3.8-11.6 [facility] Comment on above: Performed By: #### A JOSESITO RAY, CUU #### [facility] [address] [place] [address] Lipase [Enzymatic activity/v olume] in Serum or PlasmaOrdered By: Shaan Sabillon on 08-14-2023 Lipase [Catalytic activity/Vol] 67.0 U/L Normal 11.0-82.0 [facility] Comment on above: Result Comment: PERF ORMED BY: [place] [address] PATHOLOGIST CAKE DECORATOR BAUTISTA BAKER M.D. Performed By: #### A JOSESITO RAY, CUU #### [facility] [address] [place] [address] [place] Lymphocytes [#/volume] in Bl ood by Automated countOrdered By: Shaan Sabillon on 08-14-2023 Lymphocytes (Bld) [#/Vol] 2.5 10*3/uL Normal 1.00-4.8 [facility] Comment on above: Performed By: #### A JOSESITO RAY, CUU #### [facility] [address] [place] [address] [place] Lymphocytes/100 leukocytes i n Blood by Automated countOrdered By: Shaan Sabillon on 08-14-2023 Lymphocytes/100 WBC (Bld) 37.3 % Normal . [facility] Comment on above: Performed By: #### A JOSESITO RAY, CUU #### [facility] [address] [place] [address] [place] MCH [Entitic mass] by Automa darvin countOrdered By: Shaan Sabillon on 08-14-2023 MCH (RBC) [Entitic mass] 29.0 pg Normal 24.7-34.3 [facility] Comment on above: Performed By: #### A JOSESITO RAY, CUU #### [facility] [address] MCHC Auto (RBC) [Mass/Vol]Or dered By: Shaan Sabillon on 08-14-2023 MCHC (RBC) [Mass/Vol] 33.4 g/dL 32.0-35.0 [facility] MCV [Entitic volume] by Auto mated countOrdered By: Shaan Sabillon on 08-14-2023 MCV (RBC) [Entitic vol] 87.0 fL Normal 80-100 [facility] Comment on above: Performed By: #### A CORY [facility], CUU #### [facility] [address] [place] [address] Monocyte distribution width [Entitic volume] in Blood by AutomatedOrdered By: Shaan Sabillon on 08-14-2023 Monocyte distribution width Auto (Bld) [Entitic vol] 16.29 % 0.00-20.00 [facility] Neutrophils [#/volume] in Bl ood by Automated countOrdered By: Shaan Sabillon on 08-14-2023 Neutrophils (Bld) [#/Vol] 3.6 10*3/uL Normal 1.8-7.7 [facility] Comment on above: Performed By: #### A CORY, [facility], CUU #### [facility] [address] [place] [address] Nitrite Test strip Ql (U)Ord ered By: Shaan Sabillon on 08-14-2023 Nitrite Ql (U) Negative Negative [facility] No Panel InformationOrdered By: Shaan Sabillon on 08-14-2023 Estimated GFR (CKD-EPI) > 60.0 mL/Min [facility] Creatinine Clearance (Chem 116.71 [facility] Nucleated erythrocytes [Pres ence] in Blood by Automated countOrdered By: Shaan Sabillon on 08-14-2023 Nucleated RBC Auto Ql (Bld) 0.0 /100{WBC} 0-0.5 [facility] Platelet mean volume [Entiti c volume] in Blood by Automated countOrdered By: Shaan Sabillon on 08-14-2023 Platelet mean volume (Bld) [Entitic vol] 9.0 fL Normal 6.3-10.7 [facility] Comment on above: Performed By: #### A JOSESITO RAY, CUU #### [address] Platelets [#/volume] in Bloo d by Automated countOrdered By: Shaan Sabillon on 08-14-2023 Platelets (Bld) [#/Vol] 281 10*3/uL Normal 150-450 [facility] Comment on above: Performed By: #### A JOSESITO RAY, CUU #### [address] Potassium [Moles/volume] in Serum or PlasmaOrdered By: Shaan Sabillon on 08-14-2023 Potassium [Moles/Vol] 3.2 mmol/L Low 3.5-5.1 [facility] Comment on above: Performed By: #### A JOSESITO RAY, CUU #### [address] Protein Test strip (U) [Mass /Vol]Ordered By: Shaan Sabillon on 08-14-2023 Protein (U) [Mass/Vol] Negative Negative [facility] Protein [Mass/volume] in Ser um or PlasmaOrdered By: Shaan Sabillon on 08-14-2023 Protein [Mass/Vol] 6.9 g/dL Normal 6.4-8.9 [facility] Comment on above: Performed By: #### A JOSESITO RAY, CUU #### [address] Serum globulin measurement b y calculation (mass/volume)Ordered By: Shaan Sabillon on 08-14-2023 Globulin (S) [Mass/Vol] 2.7 g/dL Normal [facility] Comment on above: Performed By: #### A JOSESITO RAY, CUU #### [address] Serum or plasma albumin/glob ulin mass ratioOrdered By: Shaan Sabillon on 08-14-2023 Albumin/Globulin [Mass ratio] 1.6 {ratio} Normal [facility] Comment on above: Performed By: #### A JOSESITO RAY, CUU #### [address] Serum or plasma anion gap de terminationOrdered By: Shaan Sabillon on 08-14-2023 Anion gap [Moles/Vol] 10.4 mmol/L Normal 6.0-15.0 [facility] Comment on above: Performed By: #### A JOSESITO RAY, CUU #### [address] Serum or plasma non-glucuron idated bilirubin measurement (mass/volume)Ordered By: Shaan Sabillon on 08-14-2023 Bilirubin.indirect [Mass/Vol] 0.2 mg/dL [facility] Sodium [Moles/volume] in Ser um or PlasmaOrdered By: Shaan Sabillon on 08-14-2023 Sodium [Moles/Vol] 139 mmol/L Normal 136-145 [facility] Comment on above: Performed By: #### A JOSESITO RAY, CUU #### [address] Specific gravity Test strip (U) [Rel density]Ordered By: Shaan Sabillon on 08-14-2023 Specific gravity (U) [Rel density] 1.026 1.001-1.030 [facility] Urea nitrogen [Mass/volume] in Serum or PlasmaOrdered By: Shaan Sabillon on 08-14-2023 Urea nitrogen [Mass/Vol] 8 mg/dL Normal 7-25 [facility] Comment on above: Performed By: #### A JOSESITO RAY, CUU #### [address] Urinalysison 08-14-2023 Bilirubin,Urine Negative Normal Negative [facility] Comment on above: Order Comment: Name Collection Type:: Clean-Voided Midstream Performed By: #### A JOSESITO RAY, CUU #### [address] Glucose Ql (U) Normal Normal Normal [facility] Comment on above: Order Comment: Name Collection Type:: Clean-Voided Midstream Performed By: #### A DDONUAPLUS, UHCG, CUU #### [address] Nitrite,Urine Negative Normal Negative [facility] Comment on above: Order Comment: Name Collection Type:: Clean-Voided Midstream Performed By: #### A DDONUAPLUS, UHCG, CUU #### [address] Occult Blood,Urine Negative Normal Negative [facility] Comment on above: Order Comment: Name Collection Type:: Clean-Voided Midstream Result Comment: PERF ORMED BY: [place] [address] PATHOLOGIST CAKE DECORATOR BAUTISTA BAKER M.D. Performed By: #### A DDONUAPLUS, UHCG, CUU #### [address] Protein,Urine Negative Normal Negative [facility] Comment on above: Order Comment: Name Collection Type:: Clean-Voided Midstream Performed By: #### A DDONUAPLUS, UHCG, CUU #### [address] Specificy [place],Urine 1.026 Normal 1.001-1.030 [facility] Comment on above: Order Comment: Name Collection Type:: Clean-Voided Midstream Performed By: #### A DDONUAPLUS, UHCG, CUU #### [address] Urobilinogen,Urine Normal Normal Normal [facility] Comment on above: Order Comment: Name Collection Type:: Clean-Voided Midstream Performed By: #### A DDONUAPLUS, UHCG, CUU #### [address] Urine appearanceOrdered By: Shaan Sabillon on 08-14-2023 Appearance (U) Clear Normal Clear [facility] Comment on above: Order Comment: Name Collection Type:: Clean-Voided Midstream Performed By: #### A DDFAIZAUAJESSICA, UHCG, CUU #### [facility] [address] [place] [id number] [facility] Urobilinogen Test strip (U) [Mass/Vol]Ordered By: Shaan Sabillon on 08-14-2023 Urobilinogen (U) [Mass/Vol] Normal mg/dL Normal [facility] pH of Urine by Test stripOrd ered By: Shaan Sabillon on 08-14-2023 pH (U) 7.0 [pH] Normal 5.0-9.0 [facility] Comment on above: Order Comment: Name Collection Type:: Clean-Voided Midstream Performed By: #### A MALLORIEUAPLUS, BRITTANIECG, CUU #### [facility] [address] [place] [address] [place] CNPNon 08-12-2023 CNPN Normal [facility] CNOVon 08-09-2023 CNOV Normal [facility] CASE MGT INIT ASSESon 2023 CASE MGT INIT ASSES Normal [facility] CBC panel Auto (Bld)on 08-07 Erythrocyte distribution width (RBC) [Ratio] 13.2 % Normal 11.5-15.0 [facility] Comment on above: Order Comment: Speci men Type: BLOOD SPECIMENOrdering Facility: [facility] Address: [address] [place] [address] Performed By: #### 5 8410-2 ####[facility] [id number] [place] [address] [place] Hematocrit (Bld) [Volume fraction] 31.1 % Low 36.0-46.0 [facility] Comment on above: Order Comment: Speci men Type: BLOOD SPECIMENOrdering Facility: [facility] Address: [address] [place] [address] Performed By: #### 5 8410-2 ####[facility] [id number] [place] [address] [place] Hemoglobin (Bld) [Mass/Vol] 9.9 g/dL Low 11.5-15.5 [facility] Comment on above: Order Comment: Speci men Type: BLOOD SPECIMENOrdering Facility: [facility] Address: [address] [place] [address] Performed By: #### 5 8410-2 ####[facility] [id number] [place] [address] [place] MCH (RBC) [Entitic mass] 29.4 pg Normal 26.0-34.0 [facility] Comment on above: Order Comment: Speci men Type: BLOOD SPECIMENOrdering Facility: [facility] Address: [address] [place] [address] Performed By: #### 5 8410-2 ####[facility] [id number] [place] [address] [place] MCHC (RBC) [Mass/Vol] 31.8 g/dL Normal 30.5-36.0 [facility] Comment on above: Order Comment: Speci men Type: BLOOD SPECIMENOrdering Facility: [facility] Address: [address] [place] [address] Performed By: #### 5 8410-2 ####[facility] [id number] [place] [address] [place] MCV (RBC) [Entitic vol] 92.3 fL Normal 80.0-100.0 [facility] Comment on above: Order Comment: Speci men Type: BLOOD SPECIMENOrdering Facility: [facility] Address: [address] [place] [address] Performed By: #### 5 8410-2 ####[facility] [id number] [place] [address] [place] Nucleated RBC (Bld) [#/Vol] 10*3/uL Normal <0.01 [facility] Comment on above: Order Comment: Speci men Type: BLOOD SPECIMENOrdering Facility: [facility] Address: [address] [place] [address] Performed By: #### 5 8410-2 ####[facility] [id number] [place] [address] [place] Platelet mean volume (Bld) [Entitic vol] 10.3 fL Normal 9.0-12.7 [facility] Comment on above: Order Comment: Speci men Type: BLOOD SPECIMENOrdering Facility: [facility] Address: [address] [place] [address] Performed By: #### 5 8410-2 ####[facility] [id number] [place] [address] [place] Platelets (Bld) [#/Vol] 267 10*3/uL Normal 150-400 [facility] Comment on above: Order Comment: Speci men Type: BLOOD SPECIMENOrdering Facility: [facility] Address: [address] [place] [address] Performed By: #### 5 8410-2 ####[facility] [id number] [place] [address] [place] RBC (Bld) [#/Vol] 3.37 10*6/uL Low 3.90-5.20 [facility] Comment on above: Order Comment: Speci men Type: BLOOD SPECIMENOrdering Facility: [facility] Address: [address] [place] [address] Performed By: #### 5 8410-2 ####[facility] [id number] [place] [address] [place] WBC (Bld) [#/Vol] 3.17 10*3/uL Low 3.70-11.00 [facility] Comment on above: Order Comment: Speci men Type: BLOOD SPECIMENOrdering Facility: [facility] Address: [address] [place] [address] Performed By: #### 5 8410-2 ####[facility] [id number] [address] [address] [place] CNDSon 08-08-2023 CNDS Normal [facility] CRP SerPl-mCncon 08-08-2023 CRP [Mass/Vol] mg/L Normal <0.9 [facility] Comment on above: Order Comment: Speci men Type: BLOOD SPECIMENOrdering Facility: [facility] Address: [address] [place] [address] Performed By: #### 2 436-6, 1987-06, ####[facility] [id number] [place] [id number] [place] Magnesium SerPl-ncon 08-07 Magnesium [Mass/Vol] 2.0 mg/dL Normal 1.7-2.3 [facility] Comment on above: Order Comment: Speci men Type: BLOOD SPECIMENOrdering Facility: [facility] Address: [address] [place], [place] [address] Performed By: #### 2 4366, 1987-06, ####[facility] [id number] [place] [id number] [place] NUTRITIONon 08-08-2023 NUTRITION Normal [facility] Renal function 2000 panelon 08-08-2023 Albumin [Mass/Vol] 3.4 g/dL Low 3.9-4.9 [facility] Comment on above: Order Comment: Speci men Type: BLOOD SPECIMENOrdering Facility: [facility] Address: [address] [place], [place] [address] Performed By: #### 2 4362-6, 1987-06, ####[facility] [id number] [place] [id number] [place] Anion gap [Moles/Vol] 9 mmol/L Normal 8-15 [facility] Comment on above: Order Comment: Speci men Type: BLOOD SPECIMENOrdering Facility: [facility] Address: [address] [place] [address] Performed By: #### 2 436-6, ####[facility] [id number] [address] [address] [place] Calcium [Mass/Vol] 8.7 mg/dL Normal 8.5-10.2 [facility] Comment on above: Order Comment: Speci men Type: BLOOD SPECIMENOrdering Facility: [facility] Address: [address] [place], [place] [address] Performed By: #### 2 4366, ####[facility] [id number] [place] [id number] [place] Chloride [Moles/Vol] 108 mmol/L High 98-107 [facility] Comment on above: Order Comment: Speci men Type: BLOOD SPECIMENOrdering Facility: [facility] Address: [address] [place] [address] Performed By: #### 2 4366, ####[facility] [id number] [place] [id number] [place] CO2 [Moles/Vol] 22 mmol/L Normal 22-30 [facility] Comment on above: Order Comment: Speci men Type: BLOOD SPECIMENOrdering Facility: [facility] Address: [address] [place] [address] Performed By: #### 2 436-6, ####[facility] [id number] [address] [address] [place] Creatinine [Mass/Vol] 0.69 mg/dL Normal 0.58-0.96 [facility] Comment on above: Order Comment: Speci men Type: BLOOD SPECIMENOrdering Facility: [facility] Address: [address] [place], [place] [address] Performed By: #### 2 4362-6, ####[facility] [id number] [place] [id number] [place] Creatinine and Glomerular filtration rate.predicted panel (S/P/Bld) 117 mL/min/1.73m??? Normal >=60 [facility] Comment on above: Order Comment: Geraldo marrero Type: BLOOD SPECIMENOrdering Facility: [facility] Address: [address] [place] [address] Result Comment: Jessica mated Glomerular Filtration Rate [...] actual GFR. Performed By: #### 2 4362-6, ####[facility] [id number] [place] [id number] [place] Glucose [Mass/Vol] 89 mg/dL Normal 74-99 [facility] Comment on above: Order Comment: Geraldo marrero Type: BLOOD SPECIMENOrdering Facility: [facility] Address: [address] [place] [address] Result Comment: The [place] Diabetes Association (ADA) provides guidance for cutoff [...] Standards of Medical Care in Diabetes 2016, [place] [employer]. Diabetes Care. 2016.39(Suppl 1). Performed By: #### 2 436-6, 1987-06, ####[facility] [id number] [address] [address] [place] Phosphate [Mass/Vol] 3.9 mg/dL Normal 2.7-4.8 [facility] Comment on above: Order Comment: Speci men Type: BLOOD SPECIMENOrdering Facility: [facility] Address: [address] [place] [address] Performed By: #### 2 4366, ####[facility] [id number] [address] [address] [place] Potassium [Moles/Vol] 4.1 mmol/L Normal 3.7-5.1 [facility] Comment on above: Order Comment: Speci men Type: BLOOD SPECIMENOrdering Facility: [facility] Address: [address] [place] [address] Performed By: #### 2 4366, ####[facility] [id number] [address] [address] [place] Sodium [Moles/Vol] 139 mmol/L Normal 136-144 [facility] Comment on above: Order Comment: Speci men Type: BLOOD SPECIMENOrdering Facility: [facility] Address: [address] [place] [address] Performed By: #### 2 4366, ####[facility] [id number] [address] [address] [place] Urea nitrogen [Mass/Vol] 7 mg/dL Normal 7-21 [facility] Comment on above: Order Comment: Speci men Type: BLOOD SPECIMENOrdering Facility: [facility] Address: [address] [place] [address] Performed By: #### 2 4362-6, 1987-5, 83282-5 ####[facility] [id number] [place] [address] [place] CBC W Auto Differential pane l (Bld)on 08-07-2023 Basophils (Bld) [#/Vol] 0.04 10*3/uL Normal <0.11 [facility] Comment on above: Order Comment: Speci men Type: BLOOD SPECIMENOrdering Facility: [facility] Address: [address] [place] [address] Performed By: #### 1 4196-0, 47286-9 ####[facility] [id number] [address] [place] Basophils/100 WBC (Bld) 0.7 % Normal [facility] Comment on above: Order Comment: Speci men Type: BLOOD SPECIMENOrdering Facility: [facility] Address: [address] [place] [address] Performed By: #### 1 4196-0, 38734-5 ####[facility] [id number] [place] [address] [place] Differential cell count method Nom (Bld) Auto Normal [facility] Comment on above: Order Comment: Speci men Type: BLOOD SPECIMENOrdering Facility: [facility] Address: [address] [place] [address] Performed By: #### 1 4196-0, 67958-5 ####[facility] [id number] [place] [address] [place] Eosinophils (Bld) [#/Vol] 0.10 10*3/uL Normal <0.46 [facility] Comment on above: Order Comment: Speci men Type: BLOOD SPECIMENOrdering Facility: [facility] Address: [address] [place] [address] Performed By: #### 1 4196-0, 17821-1 ####[facility] [id number] [place] [address] [place] Eosinophils/100 WBC (Bld) 1.8 % Normal [facility] Comment on above: Order Comment: Speci men Type: BLOOD SPECIMENOrdering Facility: [facility] Address: [address] [place] [address] Performed By: #### 1 4196-0, 45104-5 ####[facility] [id number] [place] [address] [place] Erythrocyte distribution width (RBC) [Ratio] 12.6 % Normal 11.5-15.0 [facility] Comment on above: Order Comment: Speci men Type: BLOOD SPECIMENOrdering Facility: [facility] Address: [address] [place] [address] Performed By: #### 1 4196-0, 74513-4 ####[facility] [id number] [place] [address] [place] Hematocrit (Bld) [Volume fraction] 30.4 % Low 36.0-46.0 [facility] Comment on above: Order Comment: Speci men Type: BLOOD SPECIMENOrdering Facility: [facility] Address: [address] [place] [address] Performed By: #### 1 4196-0, 20805-0 ####[facility] [id number] [place] [address] [place] Hemoglobin (Bld) [Mass/Vol] 10.1 g/dL Low 11.5-15.5 [facility] Comment on above: Order Comment: Speci men Type: BLOOD SPECIMENOrdering Facility: [facility] Address: [address] [place] [address] Performed By: #### 1 4196-0, 68241-6 ####[facility] [id number] [address] [place] [address] [place] Immature granulocytes (Bld) [#/Vol] 10*3/uL Normal <0.10 [facility] Comment on above: Order Comment: Speci men Type: BLOOD SPECIMENOrdering Facility: [facility] Address: [address] [place] [address] Performed By: #### 1 4196-0, 67242-4 ####[facility] [id number] [place] [address] [place] Immature granulocytes/100 WBC (Bld) 0.2 % Normal [facility] Comment on above: Order Comment: Speci men Type: BLOOD SPECIMENOrdering Facility: [facility] Address: [address] [place] [address] Performed By: #### 1 4196-0, 18017-8 ####[facility] [id number] [place] [address] [place] Lymphocytes (Bld) [#/Vol] 1.13 10*3/uL Normal 1.00-4.00 [facility] Comment on above: Order Comment: Speci men Type: BLOOD SPECIMENOrdering Facility: [facility] Address: [address] [place] [address] Performed By: #### 1 4196-0, 63595-7 ####[facility] [id number] [place] [address] [place] Lymphocytes/100 WBC (Bld) 20.8 % Normal [facility] Comment on above: Order Comment: Speci men Type: BLOOD SPECIMENOrdering Facility: [facility] Address: [address] [place] [address] Performed By: #### 1 4196-0, 40904-5 ####[facility] [id number] [place] [address] [place] MCH (RBC) [Entitic mass] 29.5 pg Normal 26.0-34.0 [facility] Comment on above: Order Comment: Speci men Type: BLOOD SPECIMENOrdering Facility: [facility] Address: [address] [place] [address] Performed By: #### 1 4196-0, 45507-3 ####[facility] [id number] [place] [address] [place] MCHC (RBC) [Mass/Vol] 33.2 g/dL Normal 30.5-36.0 [facility] Comment on above: Order Comment: Speci men Type: BLOOD SPECIMENOrdering Facility: [facility] Address: [address] [place] [address] Performed By: #### 1 4196-0, 41359-4 ####[facility] [id number] [place] [address] [place] TERRELL MCV (RBC) [Entitic vol] 88.9 fL Normal 80.0-100.0 [facility] Comment on above: Order Comment: Speci men Type: BLOOD SPECIMENOrdering Facility: [facility] Address: [address] [place] [address] Performed By: #### 1 4196-0, 41988-2 ####[facility] LABIA [id number] [place] [address] [place] Monocytes (Bld) [#/Vol] 0.38 10*3/uL Normal <0.87 [facility] Comment on above: Order Comment: Speci men Type: BLOOD SPECIMENOrdering Facility: [facility] Address: [address] [place] [address] Performed By: #### 1 4196-0, 34736-7 ####[facility] LABIA [id number] [place] [address] [place] Monocytes/100 WBC (Bld) 7.0 % Normal [facility] Comment on above: Order Comment: Speci men Type: BLOOD SPECIMENOrdering Facility: [facility] Address: [address] [place] [address] Performed By: #### 1 4196-0, 05983-0 ####[facility] LABCLIA [id number] [place] [address] [place] Neutrophils (Bld) [#/Vol] 3.78 10*3/uL Normal 1.45-7.50 [facility] Comment on above: Order Comment: Speci men Type: BLOOD SPECIMENOrdering Facility: [facility] Address: [address] [place] [address] Performed By: #### 1 4196-0, 55053-0 ####[facility] LABCLIA [id number] [place] [address] [place] Neutrophils/100 WBC (Bld) 69.5 % Normal [facility] Comment on above: Order Comment: Speci men Type: BLOOD SPECIMENOrdering Facility: [facility] Address: [address] [place] [address] Performed By: #### 1 4196-0, 96321-0 ####[facility] LABCLIA [id number] [place] [address] [place] Nucleated RBC (Bld) [#/Vol] 10*3/uL Normal <0.01 [facility] Comment on above: Order Comment: Speci men Type: BLOOD SPECIMENOrdering Facility: [facility] Address: [address] [place] [address] Performed By: #### 1 4196-0, 87445-1 ####[facility] LABCLIA [id number] [place] [address] [place] Nucleated RBC/100 WBC (Bld) [Ratio] 0.0 /100 WBC Normal [facility] Comment on above: Order Comment: Speci men Type: BLOOD SPECIMENOrdering Facility: [facility] Address: [address] [place] [address] Performed By: #### 1 4196-0, 17941-5 ####[facility] LABCLIA [id number] [place] [address] [place] Platelet mean volume (Bld) [Entitic vol] 10.0 fL Normal 9.0-12.7 [facility] Comment on above: Order Comment: Speci men Type: BLOOD SPECIMENOrdering Facility: [facility] Address: [address] [place] [address] Performed By: #### 1 4196-0, 16231-2 ####[facility] LABCLIA [id number] [place] [address] [place] Platelets (Bld) [#/Vol] 271 10*3/uL Normal 150-400 [facility] Comment on above: Order Comment: Speci men Type: BLOOD SPECIMENOrdering Facility: [facility] Address: [address] [place] [address] Performed By: #### 1 4196-0, 41010-9 ####[facility] LABCLIA [id number] [place] [address] [place] RBC (Bld) [#/Vol] 3.42 10*6/uL Low 3.90-5.20 [facility] Comment on above: Order Comment: Speci men Type: BLOOD SPECIMENOrdering Facility: [facility] Address: [address] [place] [address] Performed By: #### 1 4196-0, 47045-0 ####[facility] LABCLIA [id number] [place] [address] [place] WBC (Bld) [#/Vol] 5.44 10*3/uL Normal 3.70-11.00 [facility] Comment on above: Order Comment: Speci men Type: BLOOD SPECIMENOrdering Facility: [facility] Address: [address] [place] [address] Performed By: #### 1 4196-0, 71966-5 ####[facility] LABCLIA [id number] [place] [address] [place] Comprehensive metabolic 2000 panelon 08-07-2023 Albumin [Mass/Vol] 3.7 g/dL Low 3.9-4.9 [facility] Comment on above: Order Comment: Speci men Type: BLOOD SPECIMENOrdering Facility: [facility] Address: [address] [place] [address] Performed By: #### 2 4323-8, 77222-0, 0-3 ####[facility] LABCLIA [id number] [place] [address] [place] ALP [Catalytic activity/Vol] 58 U/L Normal 34-123 [facility] Comment on above: Order Comment: Speci men Type: BLOOD SPECIMENOrdering Facility: [facility] Address: [address] [place] [address] Performed By: #### 2 4323-8, 63510-1, 0-3 ####[facility] LABCLIA [id number] [place] [address] [place] ALT [Catalytic activity/Vol] 16 U/L Normal 7-38 [facility] Comment on above: Order Comment: Speci men Type: BLOOD SPECIMENOrdering Facility: [facility] Address: [address] [place] [address] Performed By: #### 2 4323-8, 83663-5, 0-3 ####[facility] LABCLIA [id number] [place] [address] [place] Anion gap [Moles/Vol] 8 mmol/L Normal 8-15 [facility] Comment on above: Order Comment: Speci men Type: BLOOD SPECIMENOrdering Facility: [facility] Address: [address] [place] [address] Performed By: #### 2 4323-8, 09359-4, 0-3 ####[facility] LABCLIA [id number] [place] [id number] [place] AST [Catalytic activity/Vol] 18 U/L Normal 13-35 [facility] Comment on above: Order Comment: Speci men Type: BLOOD SPECIMENOrdering Facility: [facility] Address: [address] [place] [address] Performed By: #### 2 4323-8, , 3 ####[facility] LABCLIA [id number] [place] [id number] [place] Bilirubin [Mass/Vol] 0.2 mg/dL Normal 0.2-1.3 [facility] Comment on above: Order Comment: Speci men Type: BLOOD SPECIMENOrdering Facility: [facility] Address: [address] [place] [address] Performed By: #### 2 4323-8, , 3 ####[facility] LABCLIA [id number] [place] [address] [place] Calcium [Mass/Vol] 8.0 mg/dL Low 8.5-10.2 [facility] Comment on above: Order Comment: Speci men Type: BLOOD SPECIMENOrdering Facility: [facility] Address: [address] [place] [address] Performed By: #### 2 4323-8, , 3 ####[facility] LABCLIA [id number] [place] [address] [place] Chloride [Moles/Vol] 108 mmol/L High 98-107 [facility] Comment on above: Order Comment: Speci men Type: BLOOD SPECIMENOrdering Facility: [facility] Address: [address] [place] [address] Performed By: #### 2 4323-8, , 3 ####[facility] LABCLIA [id number] [place] [id number] [place] CO2 [Moles/Vol] 23 mmol/L Normal 22-30 [facility] Comment on above: Order Comment: Speci men Type: BLOOD SPECIMENOrdering Facility: [facility] Address: [address] [place] [id number] Performed By: #### 2 4323-8, , 3039-3 ####[facility] LABCLIA [id number] [address] [address] [place] Creatinine [Mass/Vol] 0.60 mg/dL Normal 0.58-0.96 [facility] Comment on above: Order Comment: Speci men Type: BLOOD SPECIMENOrdering Facility: [facility] Address: [address] [place], [place] [id number] Performed By: #### 2 4323-8, , 3 ####[facility] [id number] [place] [address] [place] Creatinine and Glomerular filtration rate.predicted panel (S/P/Bld) 121 mL/min/1.73m??? Normal >=60 [facility] Comment on above: Order Comment: Speci men Type: BLOOD SPECIMENOrdering Facility: [facility] Address: [address] [place] [address] Result Comment: Jessica mated Glomerular Filtration Rate [...] Performed By: #### 2 4323-8, , 3 ####[facility] LABIA [id number] [place] [id number] [place] Glucose [Mass/Vol] 89 mg/dL Normal 74-99 [facility] Comment on above: Order Comment: Speci men Type: BLOOD SPECIMENOrdering Facility: [facility] Address: [address] [place] [id number] Result Comment: The [place] [employer] (ADA) provides guidance for cutoff [...] Standards of Medical Care in Diabetes 2016, [place] [employer]. Diabetes Care. 2016.39(Suppl 1). Performed By: #### 2 4323-8, 41301-1, 0-3 ####[facility] LABIA [id number] [place] [address] [place] Potassium [Moles/Vol] 3.6 mmol/L Low 3.7-5.1 [facility] Comment on above: Order Comment: Speci men Type: BLOOD SPECIMENOrdering Facility: [facility] Address: [address] [place] [address] Performed By: #### 2 4323-8, , 3039-3 ####[facility] LABIA [id number] [place] [address] [place] Protein [Mass/Vol] 5.8 g/dL Low 6.3-8.0 [facility] Comment on above: Order Comment: Speci men Type: BLOOD SPECIMENOrdering Facility: [facility] Address: [address] [place] [id number] Performed By: #### 2 4323-8, 15574-5, 3039-3 ####[facility] LABIA [id number] [place] [address] [place] Sodium [Moles/Vol] 139 mmol/L Normal 136-144 [facility] Comment on above: Order Comment: Speci men Type: BLOOD SPECIMENOrdering Facility: [facility] Address: [address] [place] [address] Performed By: #### 2 4323-8, 08802-7, 3040-3 ####[facility] LABCLIA [id number] [address] [address] [place] Urea nitrogen [Mass/Vol] 10 mg/dL Normal 7- [facility] Comment on above: Order Comment: Speci men Type: BLOOD SPECIMENOrdering Facility: [facility] Address: [address] [place] [address] Performed By: #### 2 4323-8, 92524-3, 0-3 ####[facility] LABCLIA [id number] [address] [address] [place] [id number] 08-07-2023 ECG01 Normal [facility] ED NOTEon 08-07-2023 ED NOTE HNO ID: [id number] Author: PASTORA MADERA RN Service: ? Author Type: Registered Nurse Type: ED Notes Filed: 08/07/2023 17:39 Note Text: Report given to H80 Normal [facility] ED NOTE HNO ID: [id number] Author: PASTORA MADERA RN Service: ? Author Type: Registered Nurse Type: ED Notes Filed: 08/07/2023 17:07 Note Text: Report attempted x1. Call back # given Normal [facility] ED NOTE HNO ID: [id number] Author: ESTEFANI WHITE CT Service: Emergency Medicine Author Type: Clinical Administrator Social Welfare Type: ED Notes Filed: 08/07/2023 09:32 Note Text: EKG complete Normal [facility] ED PROV NOTEon 08-07-2023 ED PROV NOTE Normal [facility] HISTORY PHYSICALon HISTORY PHYSICAL Normal [facility] Lactate (Bld) [Moles/Vol]on 08-07-2023 Lactate [Moles/Vol] 0.8 mmol/L Normal 0.5-2.2 [facility] Comment on above: Order Comment: Speci men Type: BLOOD SPECIMENOrdering Facility: [facility] Address: [address] [place], [place] [address] Performed By: #### 3 2693-4 ####[facility] LABCLIA [id number] [place] [address] [place] Lipase SerPl-cCncon 08-07-19 24 Lipase [Catalytic activity/Vol] 45 U/L Normal 16-61 [facility] Comment on above: Order Comment: Speci men Type: BLOOD SPECIMENOrdering Facility: [facility] Address: [address] [place] [address] Performed By: #### 2 4323-8, 49254-5, 3040-3 ####[facility] LABIA [id number] [place] [address] [place] Magnesium SerPl-mCncon 08-06 Magnesium [Mass/Vol] 1.9 mg/dL Normal 1.7-2.3 [facility] Comment on above: Order Comment: Speci men Type: BLOOD SPECIMENOrdering Facility: [facility] Address: [address] [place] [address] Performed By: #### 2 4323-8, 12000-5, 3040-3 ####[facility] [id number] [place] [address] [place] Retics #on 08-07-2023 Reticulocytes (Bld) [#/Vol] 0.53688 10*3/uL Normal 0.018-0.100 [facility] Comment on above: Order Comment: Speci men Type: BLOOD SPECIMENOrdering Facility: [facility] Address: [address] [place] [address] Performed By: #### 1 4196-0, 80657-6 ####[facility] [id number] [place] [address] [place] Reticulocytes (Bld) [#/Vol]o n 08-07-2023 Reticulocytes/100 RBC (Bld) 1.6 % Normal 0.4-2.0 [facility] Comment on above: Order Comment: Speci men Type: BLOOD SPECIMENOrdering Facility: [facility] Address: [address] [place] [address] Performed By: #### 1 4196-0, 75053-6 ####[facility] LABCLIA [id number] [place] [address] [place] STREPTOCOCCUS PNEUMONIAE ANT IGEN URINEon 08-07-2023 STREPTOCOCCUS PNEUMONIAE ANTIGEN URINE Normal [facility] Comment on above: Performed By: #### S PNAG ####[facility] LABCLIA [id number] [place] [address] [place] XR CHEST 2V FRONTAL/LATon XR CHEST 2V FRONTAL/LAT Normal [facility] CASE MANAGEMon 08-06-2023 CASE MANAGEM Normal [facility] CNDSon 08-06-2023 CNDS Normal [facility] CONSULT PROGon 08-06-2023 CONSULT PROG Normal [facility] Magnesium SerPl-mCncon 08-05 Magnesium [Mass/Vol] 1.8 mg/dL Normal 1.7-2.3 [facility] Comment on above: Order Comment: Speci men Type: BLOOD SPECIMENOrdering Facility: [facility] Address: [address] [place] [address] Performed By: #### 1 9123-9, 39796-5 ####[facility] LABORATORYCLIA [id number] [facility] [place] [address] [place] NURSING PROGon 08-06-2023 NURSING PROG Normal [facility] NUTRITIONon 08-06-2023 NUTRITION Normal [facility] Renal function 2000 panelon 08-06-2023 Albumin [Mass/Vol] 3.5 g/dL Low 3.9-4.9 [facility] Comment on above: Order Comment: Speci men Type: BLOOD SPECIMENOrdering Facility: [facility] Address: [address] [place] [address] Performed By: #### 1 9123-9, 45867-7 ####[facility] LABORATORYCLIA [id number] [place] [address] [place] Anion gap [Moles/Vol] 10 mmol/L Normal 8-15 [facility] Comment on above: Order Comment: Speci men Type: BLOOD SPECIMENOrdering Facility: [facility] Address: [address] [place] [address] Performed By: #### 1 9123-9, 97472-1 ####[facility] LABORATORYCLIA [id number] [place] [address] [place] Calcium [Mass/Vol] 8.2 mg/dL Low 8.5-10.2 [facility] Comment on above: Order Comment: Speci men Type: BLOOD SPECIMENOrdering Facility: [facility] Address: [address] [place] [address] Performed By: #### 1 9123-9, 76886-2 ####[facility] [id number] [place] [address] [place] Chloride [Moles/Vol] 106 mmol/L Normal 98-107 [facility] Comment on above: Order Comment: Speci men Type: BLOOD SPECIMENOrdering Facility: [facility] Address: [address] [place] [address] Performed By: #### 1 9123-9, 33573-3 ####[facility] [id number] [place] [address] [place] CO2 [Moles/Vol] 23 mmol/L Normal 22-30 [facility] ital Comment on above: Order Comment: Speci men Type: BLOOD SPECIMENOrdering Facility: [facility] Address: [address] [place] [address] Performed By: #### 1 9123-9, 73117-8 ####[facility] [id number] [place] [address] [place] Creatinine [Mass/Vol] 0.71 mg/dL Normal 0.58-0.96 [facility] Comment on above: Order Comment: Speci men Type: BLOOD SPECIMENOrdering Facility: [facility] Address: [address] [place] [address] Performed By: #### 1 9123-9, 30646-9 ####[facility] LABORATORYCLIA [id number] [place] [id number] [place] Creatinine and Glomerular filtration rate.predicted panel (S/P/Bld) 115 mL/min/1.73m??? Normal >=60 [facility] Comment on above: Order Comment: Geraldo marrero Type: BLOOD SPECIMENOrdering Facility: [facility] Address: [address] [place] [address] Result Comment: Jessica mated Glomerular Filtration Rate [...] actual GFR. Performed By: #### 1 9123-9, 55182-2 ####[facility] LABORATORYCLIA [id number] [place] [address] [place] Glucose [Mass/Vol] 106 mg/dL High 74-99 [facility] Comment on above: Order Comment: Geraldo marrero Type: BLOOD SPECIMENOrdering Facility: [facility] Address: [address] [place] [address] Result Comment: The [place] Diabetes [employer] (ADA) provides guidance for cutoff [...] Standards of Medical Care in Diabetes 2016, [place] [employer]. Diabetes Care. 2016.39(Suppl 1). Performed By: #### 1 9123-9, 28551-3 ####[facility] LABORATORYCLIA [id number] [facility] [place] [address] [place] Phosphate [Mass/Vol] 4.2 mg/dL Normal 2.7-4.8 [facility] Comment on above: Order Comment: Speci men Type: BLOOD SPECIMENOrdering Facility: [facility] Address: [address] [place] [address] Performed By: #### 1 9123-9, 15608-9 ####[facility] [id number] [place] [address] [place] Potassium [Moles/Vol] 3.8 mmol/L Normal 3.7-5.1 [facility] Comment on above: Order Comment: Speci men Type: BLOOD SPECIMENOrdering Facility: [facility] Address: [address] [place] [address] Performed By: #### 1 9123-9, 49724-7 ####[facility] [id number] [place] [address] [place] Sodium [Moles/Vol] 139 mmol/L Normal 136-144 [facility] Comment on above: Order Comment: Speci men Type: BLOOD SPECIMENOrdering Facility: [facility] Address: [address] [place] [address] Performed By: #### 1 9123-9, 32219-2 ####[facility] LABORATORYIA [id number] [facility] [place] [address] [place] Urea nitrogen [Mass/Vol] 12 mg/dL Normal 7-21 [facility] Comment on above: Order Comment: Speci men Type: BLOOD SPECIMENOrdering Facility: [facility] Address: [address] [place] [address] Performed By: #### 1 9123-9, 77302-3 ####[facility] LABORATORYIA [id number] [place] [address] [place] ALLIED HEALTHon 08-05-2023 ALLIED HEALTH Normal [facility] CASE MGT INIT ASSESon 2023 CASE MGT INIT ASSES Normal [facility] CONSULTon 08-05-2023 CONSULT Normal [facility] NUTRITIONon 08-05-2023 NUTRITION Normal [facility] CBC W Auto Differential pane l (Bld)on 08-04-2023 Basophils (Bld) [#/Vol] 0.04 10*3/uL Normal <0.11 [facility] Comment on above: Order Comment: Speci men Type: BLOOD SPECIMENOrdering Facility: [facility] Address: [address] [place] [address] Performed By: #### 5 7021-8 ####[facility] LABORATORYCLIA [id number] [place] [id number] [place] Basophils/100 WBC (Bld) 0.5 % [facility] Comment on above: Order Comment: Speci men Type: BLOOD SPECIMENOrdering Facility: [facility] Address: [address] [place] [address] Performed By: #### 5 7021-8 ####[facility] LABORATORYCLIA [id number] [place] [address] [place] Differential cell count method Nom (Bld) Auto Normal [facility] Comment on above: Order Comment: Speci men Type: BLOOD SPECIMENOrdering Facility: [facility] Address: [address] [place] [address] Performed By: #### 5 7021-8 ####[facility] LABORATORYCLIA [id number] [facility] [place] [address] [place] Eosinophils (Bld) [#/Vol] 0.05 10*3/uL Normal <0.46 [facility] Comment on above: Order Comment: Speci men Type: BLOOD SPECIMENOrdering Facility: [facility] Address: [address] [place] [address] Performed By: #### 5 7021-8 ####[facility] LABORATORYCLIA [id number] [place] [address] [place] Eosinophils/100 WBC (Bld) 0.6 % Normal [facility] Comment on above: Order Comment: Speci men Type: BLOOD SPECIMENOrdering Facility: [facility] Address: [address] [place] [address] Performed By: #### 5 7021-8 ####[facility] [id number] [place] [address] [place] Erythrocyte distribution width (RBC) [Ratio] 12.8 % Normal 11.5-15.0 [facility] Comment on above: Order Comment: Speci men Type: BLOOD SPECIMENOrdering Facility: [facility] Address: [address] [place] [address] Performed By: #### 5 7021-8 ####[facility] [id number] [place] [address] [place] Hematocrit (Bld) [Volume fraction] 36.2 % Normal 36.0-46.0 [facility] Comment on above: Order Comment: Speci men Type: BLOOD SPECIMENOrdering Facility: [facility] Address: [address] [place] [address] Performed By: #### 5 7021-8 ####[facility] [id number] [place] [address] [place] Hemoglobin (Bld) [Mass/Vol] 12.0 g/dL Normal 11.5-15.5 [facility] Comment on above: Order Comment: Speci men Type: BLOOD SPECIMENOrdering Facility: [facility] Address: [address] [place] [address] Performed By: #### 5 7021-8 ####[facility] LABORATORYIA [id number] [place] [address] [place] Immature granulocytes (Bld) [#/Vol] 10*3/uL Normal <0.10 [facility] Comment on above: Order Comment: Speci men Type: BLOOD SPECIMENOrdering Facility: [facility] Address: [address] [place] [address] Performed By: #### 5 7021-8 ####[facility] LABORATORYIA [id number] [place] [address] [place] Immature granulocytes/100 WBC (Bld) 0.2 % Normal [facility] Comment on above: Order Comment: Speci men Type: BLOOD SPECIMENOrdering Facility: [facility] Address: [address] [place] [address] Performed By: #### 5 7021-8 ####[facility] LABORATORYCLIA [id number] [place] [address] [place] Lymphocytes (Bld) [#/Vol] 1.30 10*3/uL Normal 1.00-4.00 [facility] Comment on above: Order Comment: Speci men Type: BLOOD SPECIMENOrdering Facility: [facility] Address: [address] [place] [address] Performed By: #### 5 7021-8 ####[facility] LABORATORYIA [id number] [address] [place] Lymphocytes/100 WBC (Bld) 14.9 % Normal [facility] Comment on above: Order Comment: Speci men Type: BLOOD SPECIMENOrdering Facility: [facility] Address: [address] [place] [address] Performed By: #### 5 7021-8 ####[facility] LABORATORYIA [id number] [place] [address] [place] MCH (RBC) [Entitic mass] 30.1 pg Normal 26.0-34.0 [facility] Comment on above: Order Comment: Speci men Type: BLOOD SPECIMENOrdering Facility: [facility] Address: [address] [place] [address] Performed By: #### 5 7021-8 ####[facility] LABORATORYIA [id number] [place] [address] [place] MCHC (RBC) [Mass/Vol] 33.1 g/dL Normal 30.5-36.0 [facility] Comment on above: Order Comment: Speci men Type: BLOOD SPECIMENOrdering Facility: [facility] Address: [address] [place] [address] Performed By: #### 5 7021-8 ####[facility] LABORATORYIA [id number] [place] [address] [place] MCV (RBC) [Entitic vol] 90.7 fL Normal 80.0-100.0 [facility] Comment on above: Order Comment: Speci men Type: BLOOD SPECIMENOrdering Facility: [facility] Address: [address] [place] [address] Performed By: #### 5 7021-8 ####[facility] LABORATORYIA [id number] [place] [address] [place] Monocytes (Bld) [#/Vol] 0.39 10*3/uL Normal <0.87 [facility] Comment on above: Order Comment: Speci men Type: BLOOD SPECIMENOrdering Facility: [facility] Address: [address] [place] [address] Performed By: #### 5 7021-8 ####[facility] [id number] [place] [address] [place] Monocytes/100 WBC (Bld) 4.5 % Normal [facility] Comment on above: Order Comment: Speci men Type: BLOOD SPECIMENOrdering Facility: [facility] Address: [address] [place] [address] Performed By: #### 5 7021-8 ####[facility] [id number] [place] [address] [place] Neutrophils (Bld) [#/Vol] 6.91 10*3/uL Normal 1.45-7.50 [facility] Comment on above: Order Comment: Speci men Type: BLOOD SPECIMENOrdering Facility: [facility] Address: [address] [place] [address] Performed By: #### 5 7021-8 ####[facility] LABORATORYIA [id number] [place] [address] [place] Neutrophils/100 WBC (Bld) 79.3 % Normal [facility] Comment on above: Order Comment: Speci men Type: BLOOD SPECIMENOrdering Facility: [facility] Address: [address] [place] [address] Performed By: #### 5 7021-8 ####[facility] [id number] [place] [address] [place] Nucleated RBC (Bld) [#/Vol] 10*3/uL Normal <0.01 [facility] Comment on above: Order Comment: Speci men Type: BLOOD SPECIMENOrdering Facility: [facility] Address: [address] [place] [address] Performed By: #### 5 7021-8 ####[facility] LABORATORYIA [id number] [place] [address] [place] Nucleated RBC/100 WBC (Bld) [Ratio] 0.0 /100 WBC Normal [facility] Comment on above: Order Comment: Speci men Type: BLOOD SPECIMENOrdering Facility: [facility] Address: [address] [place] [address] Performed By: #### 5 7021-8 ####[facility] [id number] [place] [address] [place] Platelet mean volume (Bld) [Entitic vol] 10.5 fL Normal 9.0-12.7 [facility] Comment on above: Order Comment: Speci men Type: BLOOD SPECIMENOrdering Facility: [facility] Address: [address] [place] [address] Performed By: #### 5 7021-8 ####[facility] [id number] [place] [address] [place] Platelets (Bld) [#/Vol] 328 10*3/uL Normal 150-400 [facility] Comment on above: Order Comment: Speci men Type: BLOOD SPECIMENOrdering Facility: [facility] Address: [address] [place] [address] Performed By: #### 5 7021-8 ####[facility]ORATORYIA [id number] [place] [address] [place] RBC (Bld) [#/Vol] 3.99 10*6/uL Normal 3.90-5.20 [facility] Comment on above: Order Comment: Speci men Type: BLOOD SPECIMENOrdering Facility: [facility] Address: [address] [place] [address] Performed By: #### 5 7021-8 ####[facility] LABORATORYCLIA [id number] [facility] [place] [address] [place] WBC (Bld) [#/Vol] 8.71 10*3/uL Normal 3.70-11.00 [facility] Comment on above: Order Comment: Speci men Type: BLOOD SPECIMENOrdering Facility: [facility] Address: [address] [place] [address] Performed By: #### 5 7021-8 ####[facility] LABORATORYCLIA [id number] [facility] [place] [address] [place] CNOVon 08-04-2023 CNOV Normal [facility] CNPNon 08-04-2023 CNPN Normal [facility] CONSULTon 08-04-2023 CONSULT Normal [facility] CT ABD/PEL W IVCONon 024 CT ABD/PEL W IVC Normal [facility] ospital CT BRAIN WO IVCONon 08-04-[address] BRAIN WO IVC Normal [facility] spital Comprehensive metabolic 2000 panelon 08-04-2023 Albumin [Mass/Vol] 3.8 g/dL Low 3.9-4.9 [facility]spital Comment on above: Order Comment: Speci men Type: BLOOD SPECIMENOrdering Facility: [facility] Address: [address] [place] [address] Performed By: #### 2 4323-8, 3040-3, 28273-5 ####[facility] LABORATORYCLIA [id number] [facility] [place] [address] [place] ALP [Catalytic activity/Vol] 76 U/L Normal 34-123 [facility] Comment on above: Order Comment: Speci men Type: BLOOD SPECIMENOrdering Facility: [facility] Address: [address] [place] [address] Performed By: #### 2 4323-8, 3040-3, ####[facility] LABORATORYCLIA [id number] [place] [address] [place] ALT [Catalytic activity/Vol] Normal [facility] Comment on above: Order Comment: Speci men Type: BLOOD SPECIMENOrdering Facility: [facility] Address: [address] [place] [address] Result Comment: Unab le to assay due to interference from hemolysis. Suggest reorder as clinically indicated. Performed By: #### 2 4323-8, 3040-3, ####[facility] LABORATORYCLIA [id number] [place] [address] [place] Anion gap [Moles/Vol] 10 mmol/L Normal 8-15 [facility] Comment on above: Order Comment: Speci men Type: BLOOD SPECIMENOrdering Facility: [facility] Address: [address] [place] [address] Performed By: #### 2 4323-8, 3040-3, ####[facility] LABORATORYCLIA [id number] [place] [address] [place] AST [Catalytic activity/Vol] Normal [facility] Comment on above: Order Comment: Speci men Type: BLOOD SPECIMENOrdering Facility: [facility] Address: [address] [place] [address] Result Comment: Unab le to assay due to interference from hemolysis. Suggest reorder as clinically indicated. Performed By: #### 2 4323-8, 3040-3, ####[facility] LABORATORYCLIA [id number] [facility] [place] [address] [place] Bilirubin [Mass/Vol] 0.3 mg/dL Normal 0.2-1.3 [facility] Comment on above: Order Comment: Speci men Type: BLOOD SPECIMENOrdering Facility: [facility] Address: [address] [place] [address] Performed By: #### 2 4323-8, 3040-3, ####[facility] [id number] [place] [address] [place] Calcium [Mass/Vol] 8.7 mg/dL Normal 8.5-10.2 [facility] Comment on above: Order Comment: Speci men Type: BLOOD SPECIMENOrdering Facility: [facility] Address: [address] [place] [address] Performed By: #### 2 4323-8, 3, ####[facility] [id number] [place] [address] [place] Chloride [Moles/Vol] 106 mmol/L Normal 98-107 [facility] Comment on above: Order Comment: Speci men Type: BLOOD SPECIMENOrdering Facility: [facility] Address: [address] [place] [address] Performed By: #### 2 4323-8, 3039-04, ####[facility] [id number] [place] [address] [place] CO2 [Moles/Vol] 23 mmol/L Normal 22-30 [facility] Comment on above: Order Comment: Speci men Type: BLOOD SPECIMENOrdering Facility: [facility] Address: [address] [place] [address] Performed By: #### 2 4323-8, 3, ####[facility] [id number] [facility] [place] [address] [place] Creatinine [Mass/Vol] 0.71 mg/dL Normal 0.58-0.96 [facility] Comment on above: Order Comment: Speci men Type: BLOOD SPECIMENOrdering Facility: [facility] Address: [address] [place] [address] Performed By: #### 2 4323-8, 3039-3, ####[facility] LABORATORYIA [id number] [place] [address] [place] Creatinine and Glomerular filtration rate.predicted panel (S/P/Bld) 115 mL/min/1.73m??? Normal >=60 [facility] l Comment on above: Order Comment: Geraldo marrero Type: BLOOD SPECIMENOrdering Facility: [facility] Address: [address] [place] [address] Result Comment: Jessica mated Glomerular Filtration Rate [...] GFR. Performed By: #### 2 4323-8, 3040-3, 00059-9 ####[facility] LABORATORYCLIA [id number] [facility] [place] [address] [place] Glucose [Mass/Vol] 82 mg/dL Normal 74-99 [facility] Comment on above: Order Comment: Geraldo marrero Type: BLOOD SPECIMENOrdering Facility: [facility] Address: [address] [place] [address] Result Comment: The [place] Diabetes Association (ADA) provides guidance for cutoff [...] Standards of Medical Care in Diabetes 2016, [place] [employer]. Diabetes Care. 2016.39(Suppl 1). Performed By: #### 2 4323-8, 3040-3, 80497-7 ####[facility] LABORATORYCLIA [id number] [facility] [place] [address] [place] Potassium [Moles/Vol] 4.3 mmol/L Normal 3.7-5.1 [facility] Comment on above: Order Comment: Speci men Type: BLOOD SPECIMENOrdering Facility: [facility] Address: [address] [place] [address] Performed By: #### 2 4323-8, 3039-3, ####[facility] LABORATORYCLIA [id number] [place] [address] [place] Protein [Mass/Vol] 6.8 g/dL Normal 6.3-8.0 [facility] Comment on above: Order Comment: Speci men Type: BLOOD SPECIMENOrdering Facility: [facility] Address: [address] [place], [place] [address] Performed By: #### 2 4323-8, 3, ####[facility] [id number] [place] [address] [place] Sodium [Moles/Vol] 139 mmol/L Normal 136-144 [facility] Comment on above: Order Comment: Speci men Type: BLOOD SPECIMENOrdering Facility: [facility] Address: [address] [place], [place] [address] Performed By: #### 2 4323-8, 3, ####[facility] [id number] [place] [address] [place] Urea nitrogen [Mass/Vol] 6 mg/dL Low 7-21 [facility] Comment on above: Order Comment: Speci men Type: BLOOD SPECIMENOrdering Facility: [facility] Address: [address] [place], [place] [address] Performed By: #### 2 4323-8, 3, ####[facility] LABORATORYIA [id number] [place] [address] [place] ECG COMPLETEon 08-04-2023 ECG COMPLETE Normal [facility] ED NOTEon 08-04-2023 ED NOTE HNO ID: [id number] Author: ANAM NAILS RN Service: Emergency Medicine Author Type: Registered Nurse Type: ED Notes Filed: 08/04/2023 14:44 Note Text: Pt remains unable to provide urine sample at this time. [facility] ED NOTE HNO ID: [id number] Author: ANAM NAILS RN Service: Emergency Medicine Author Type: Registered Nurse Type: ED Notes Filed: 08/04/2023 14:43 Note Text: Pt unable to provide urine sample at this time. [facility] ED NOTE HNO ID: [id number] Author: CORIE BILLINGSLEY Medic Service: ? Author Type: Corporate Scheduler and Administrator Social Welfare Type: ED Notes Filed: 08/04/2023 09:52 Note Text: Pt also states she fell yesterday and LOC noted. Pt had had multiple episodes of diarrhea as well. [facility] ED PROV NOTEon 08-04-2023 ED PROV NOTE Normal [facility] HIGH SENSITIVITY TROPONIN T (INITIAL)on 08-04-2023 Troponin T.cardiac High sensitivity method [Mass/Vol] <6 Normal <12 [facility] Comment on above: Order Comment: Geraldo marrero Type: BLOOD SPECIMENOrdering Facility: [facility] Address: [address] [place] [address] Result Comment: When assessing risk for acute [...] 30 day MACE. Performed By: #### L [id number] ####[facility] LABORATORYCLIA [id number] [facility] OF [facility] HIGH SENSITIVITY TROPONIN T (SECOND)on 08-04-2023 Troponin T.cardiac High sensitivity method [Mass/Vol] <6 Normal <[address] [place] [address] Comment on above: Order Comment: Geraldo marrero Type: BLOOD SPECIMENOrdering Facility: [facility] Address: [address] [place] [address] Result Comment: When assessing risk for acute [...] 30 day MACE. Performed By: #### L [id number] ####[facility] [id number] [place] [address] [place] HISTORY PHYSICALon 4 HISTORY PHYSICAL Normal [facility] Lipase SerPl-cCncon 08-04-19 24 Lipase [Catalytic activity/Vol] 52 U/L Normal 16-61 [facility] Comment on above: Order Comment: Speci men Type: BLOOD SPECIMENOrdering Facility: [facility] Address: [address] [place] [address] Performed By: #### 2 4323-8, 3040-3, ####[facility] [id number] [place] [address] [facility] [place] [facility]03 Magnesium [Mass/Vol] 1.9 mg/dL Normal 1.7-2.3 [facility] Comment on above: Order Comment: Speci men Type: BLOOD SPECIMENOrdering Facility: [facility] Address: [address] [place] [address] Performed By: #### 2 4323-8, 3040-3, ####[facility] [id number] [place] [address] [facility] [place] SEPSIS LACTATE W/ REFLEX (IN ITIAL)on 08-04-2023 Lactate [Moles/Vol] 1.5 mmol/L Normal 0.0-2.0 [facility] Comment on above: Order Comment: Speci men Type: BLOOD SPECIMENOrdering Facility: [facility] Address: [address] [place] [address] Performed By: #### S LACTR ####[facility] [id number] [place] [address] [place] Urinalysis complete panel (U )on 08-04-2023 Bilirubin Ql (U) Negative Normal Negative [facility] Comment on above: Order Comment: Speci men Type: URINE SPECIMENOrdering Facility: [facility] Address: [address] [place] [address] Performed By: #### 2 4356-8 ####[facility] [id number] [place] [address] [place] Clarity (Unsp spec) Clear Normal Clear [facility] Comment on above: Order Comment: Speci men Type: URINE SPECIMENOrdering Facility: [facility] Address: [address] [place] [address] Performed By: #### 2 4356-8 ####[facility] [id number] [place] [address] [place] Color (U) Yellow Normal Yellow [facility] Comment on above: Order Comment: Speci men Type: URINE SPECIMENOrdering Facility: [facility] Address: [address] [place] [address] Performed By: #### 2 4356-8 ####[facility] [id number] [place] [address] [place] Glucose Test strip (U) [Mass/Vol] Negative Normal Trace, Negative [facility] Comment on above: Order Comment: Speci men Type: URINE SPECIMENOrdering Facility: [facility] Address: [address] [place] [address] Performed By: #### 2 4356-8 ####[facility] [id number] [place] [address] [place] Hemoglobin Ql (U) Negative Normal Negative, Trace [facility] Comment on above: Order Comment: Speci men Type: URINE SPECIMENOrdering Facility: [facility] Address: [address] [place] [id number] Performed By: #### 2 4356-8 ####[facility] [id number] [place] [address] [place] Ketones Ql (U) Negative Normal Negative, Trace [facility] Comment on above: Order Comment: Speci men Type: URINE SPECIMENOrdering Facility: [facility] Address: [address] [place] [address] Performed By: #### 2 4356-8 ####[facility] [id number] [place] [address] [place] Leukocyte esterase Test strip Ql (U) Negative Normal Negative, 25 [place]/uL [facility] Comment on above: Order Comment: Speci men Type: URINE SPECIMENOrdering Facility: [facility] Address: [address] [place] [address] Performed By: #### 2 4356-8 ####[facility] [id number] [place] [address] [place] Nitrite Ql (U) Negative Normal Negative [facility] Comment on above: Order Comment: Speci men Type: URINE SPECIMENOrdering Facility: [facility] Address: [address] [place] [address] Performed By: #### 2 4356-8 ####[facility] [id number] [place] [address] [place] pH (U) 7.5 [pH] Normal 5.0-8.0 [facility] Comment on above: Order Comment: Speci men Type: URINE SPECIMENOrdering Facility: [facility] Address: [address] [place] [address] Performed By: #### 2 4356-8 ####[facility] [id number] [place] [id number] [place] Protein (U) [Mass/Vol] Trace Normal Trace, Negative [facility] Comment on above: Order Comment: Speci men Type: URINE SPECIMENOrdering Facility: [facility] Address: [address] [place] [address] Performed By: #### 2 4356-8 ####[facility] [id number] [place] [id number] [place] RBC LM.HPF (Urine sed) [#/Area] 0-3 /HPF Normal 0-3 /HPF [facility] Comment on above: Order Comment: Speci men Type: URINE SPECIMENOrdering Facility: [facility] Address: [address] [place] [address] Performed By: #### 2 4356-8 ####[facility] [id number] [place] [id number] [place] Specific gravity (U) [Rel density] <1.005 Low 1.005-1.030 [facility] Comment on above: Order Comment: Speci men Type: URINE SPECIMENOrdering Facility: [facility] Address: [address] [place] [address] Performed By: #### 2 4356-8 ####[facility] [id number] [place] [id number] [place] Urobilinogen Ql (U) Normal Normal Normal [facility] Comment on above: Order Comment: Speci men Type: URINE SPECIMENOrdering Facility: [facility] Address: [address] [place] [address] Performed By: #### 2 4356-8 ####[facility] [id number] [place] [id number] [place] WBC LM.HPF (Urine sed) [#/Area] 0-5 /HPF Normal 0-5 /HPF [facility] Comment on above: Order Comment: Speci men Type: URINE SPECIMENOrdering Facility: [facility] Address: [address] [place] [address] Performed By: #### 2 4356-8 ####[facility] [id number] [place] [id number] [place] XR CHEST 1V FRONTAL PORTon 0 08-04-2023 XR CHEST 1V FRONTAL PORT Normal [facility] Activated partial thrombopla stin time (aPTT) in platelet poor plasma by coagulation aOrdered By: Jeramy Cunningham on 07-31-2023 aPTT Coag (PPP) [Time] 27.0 s 25.1-36.5 [facility] Comment on above: A hematocrit value g reater than 55% may lead to inaccurate results in coagulation testing. Patients having hematocrit values >55% require a special collection tube for coagulation studies. Please contact the laboratory at [phone] for redraw instructions. Alanine aminotransferase [En zymatic activity/volume] in Serum or PlasmaOrdered By: Jeramy Cunningham on 07-31-2023 ALT [Catalytic activity/Vol] 29 U/L Normal 7-52 [facility] Comment on above: Performed By: #### A CORY EILS, CUU #### [place] [address] [place] Albumin [Mass/volume] in Ser um or Plasma by Bromocresol green (BCG) dye binding methoOrdered By: Jeramy Cunningham on 07-31-2023 Albumin BCG dye [Mass/Vol] 4.0 g/dL 3.5-5.7 [facility] Alkaline phosphatase [Enzyma tic activity/volume] in Serum or PlasmaOrdered By: Jeramy Cunningham on 07-31-2023 ALP [Catalytic activity/Vol] 58 U/L Normal 34-104 [facility] Comment on above: Performed By: #### A CORY [facility]E HOSPITALJarrod, CUU #### [address] Aspartate aminotransferase [ Enzymatic activity/volume] in Serum or PlasmaOrdered By: Jeramy Cunningham on 07-31-2023 AST [Catalytic activity/Vol] 34 U/L Normal 13-39 [facility] Comment on above: Performed By: #### A CORY ELIS, CUU #### [address] Automated basophil %Ordered By: Jeramy Cunningham on 07-31-2023 Basophils/100 WBC (Bld) 0.6 % Normal . [facility] Comment on above: Performed By: #### A CORY ELIS, CUU #### [address] Automated basophil countOrde red By: Jeramy Cunningham on 07-31-2023 Basophils (Bld) [#/Vol] 0.0 10*3/uL Normal 0.0-0.2 [facility] Comment on above: Result Comment: PERF ORMED BY: [place] [address] PATHOLOGIST CAKE DECORATOR BAUTISTA BAKER M.D. Performed By: #### A CORY ELIS, CUU #### [address] Automated blood monocyte cou ntOrdered By: Jeramy Cunningham on 07-31-2023 Monocytes (Bld) [#/Vol] 0.2 10*3/uL Normal 0.0-0.8 [facility] Comment on above: Performed By: #### A CORY ELIS, CUU #### [address] Automated eosinophil %Ordere d By: Jeramy Cunningham on 07-31-2023 Eosinophils/100 WBC (Bld) 0.2 % Normal . [facility] Comment on above: Performed By: #### A CORY ELIS, CUU #### [address] Automated eosinophil countOr dered By: Jeramy Cunningham on 07-31-2023 Eosinophils (Bld) [#/Vol] 0.0 10*3/uL Normal 0.0-0.45 [facility] Comment on above: Performed By: #### A CORY ELIS, CUU #### [address] Automated monocyte %Ordered By: Jeramy Cunningham on 07-31-2023 Monocytes/100 WBC (Bld) 3.1 % Normal . [facility] Comment on above: Performed By: #### A ALIYAH RAYG, CUU #### [address] Automated neutrophil %Ordere d By: Jeramy Cunningham on 07-31-2023 Neutrophils/100 WBC (Bld) 84.9 % Normal . [facility] Comment on above: Performed By: #### A CORY ElroyG, CUU #### [facility] [address] [place] [place] [address] Basic Metabolic Panelon 07-16 Creatinine Clr Calc Pharmacy 120.10 Normal [facility] Comment on above: Performed By: #### H EPATIC, MG, LIPASE, CMP, CBC #### [facility] [address] [place] [address] GFR/1.73 sq M.predicted MDRD (S/P/Bld) [Vol rate/Area] mL/min/{1.73_m2} Normal [facility] Comment on above: Performed By: #### H EPATIC, MG, LIPASE, CMP, CBC #### [facility] [address] [place] [address] Bilirubin Test strip Ql (U)O rdered By: Jeramy Cunningham on 07-31-2023 Bilirubin Ql (U) Negative Negative [facility] Bilirubin.direct [Mass/volum e] in Serum or PlasmaOrdered By: Jeramy Cunningham on 07-31-2023 Bilirubin.direct [Mass/Vol] 0.10 mg/dL 0.03-0.18 [facility] Bilirubin.total [Mass/volume ] in Serum or PlasmaOrdered By: Jeramy Cunningham on 07-31-2023 Bilirubin [Mass/Vol] 0.4 mg/dL Normal 0.3-1.0 [facility] Comment on above: Performed By: #### A DDONUAPLUS, UHCG, CUU #### [facility] [address] [place] [address] CT abdomen pelvis w conon CT abdomen pelvis w con [place] [address] CT Scan Report Signed Patient: Abbey Garcia MR#: [id number] : 1990 Acct:[id number] Age/Sex: 33 / F ADM Date: 07/31/23 Loc: ER Room: Type: [facility] ER Attending Dr: Copies to: Jeramy Cunningham [...] Jason Palomo M.D.07/31/2023 12:28 PM Dictation Location: [place] [address] Transcribed By: [facility] 07/31/23 1228 Dictated By: Jason Palomo DO 07/31/23 1223 Signed By: 07/31/23 1228 Normal [facility] Calcium [Mass/volume] in Ser um or PlasmaOrdered By: Jeramy Cunningham on 07-31-2023 Calcium [Mass/Vol] 8.5 mg/dL Low 8.6-10.3 [facility] Comment on above: Performed By: #### H EPATIC, MG, LIPASE, CMP, CBC #### [address] Carbon dioxide, total [Moles /volume] in Serum or PlasmaOrdered By: Jeramy Cunningham on 07-31-2023 CO2 [Moles/Vol] 26.1 mmol/L Normal 21.0-31.0 [facility] Comment on above: Performed By: #### H EPATIC, MG, LIPASE, CMP, CBC #### [place] [address] [place] Chloride [Moles/volume] in S elder or PlasmaOrdered By: Jeramy Cunningham on 07-31-2023 Chloride [Moles/Vol] 107 mmol/L Normal 98-107 [facility] Comment on above: Performed By: #### H EPATIC, MG, LIPASE, CMP, CBC #### [address] Color of Urine by AutoOrdere d By: Jeramy Cunningham on 07-31-2023 Color (U) Colorless Normal Yellow [facility] Comment on above: Order Comment: Name Collection Type:: Clean-Voided Midstream Performed By: #### H EPATIC, MG, LIPASE, CMP, CBC #### [address] Complete Blood Count Auto Di ffon 07-31-2023 Mean Corpuscular HGB Conc 33.8 g/dL Normal 32.0-35.0 [facility] Comment on above: Performed By: #### A JOSESITO RAY, CUU #### [address] Monocytes/100 WBC (Bld) 14.62 % Normal 0.00-20.00 [facility] Comment on above: Performed By: #### A JOSESITO RAY, CUU #### [address] NRBC% 0.1 /100{WBC} Normal 0-0.5 [facility] Comment on above: Performed By: #### A JOSESITO RAY, CUU #### [address] Creatinine [Mass/volume] in Serum or PlasmaOrdered By: Jeramy Cunningham on 07-31-2023 Creatinine [Mass/Vol] 0.70 mg/dL Normal 0.60-1.20 [facility] Comment on above: Performed By: #### H EPATIC, MG, LIPASE, CMP, CBC #### [facility] [address] Erythrocyte distribution wid th [Ratio] by Automated countOrdered By: Jeramy Cunningham on 07-31-2023 Erythrocyte distribution width (RBC) [Ratio] 14.2 % Normal 11.9-15.3 [facility] Comment on above: Performed By: #### A DDONUAPLUS, UHCG, CUU #### [facility] [address] Erythrocytes [#/volume] in B lood by Automated countOrdered By: Jeramy Cunningham on 07-31-2023 RBC (Bld) [#/Vol] 3.75 10*6/uL Normal 3.60-5.00 [facility] Comment on above: Performed By: #### A DDONUAPLUS, UHCG, CUU #### [facility] [address] Glucose [Mass/volume] in Ser um or PlasmaOrdered By: Jeramy Cunningham on 07-31-2023 Glucose [Mass/Vol] 91 mg/dL Normal 70-100 [facility] Comment on above: ADA recommended refe rence rangeRandom Glucose Reference Range is dependent on time and content of last meal. Glucose of more than 200 mg/dL in a nonstressed, ambulatory subject supports the diagnosis of Diabetes Mellitus. Result Comment: [place] om Glucose Reference Range is dependent on time and content of last meal. Glucose of more than 200 mg/dL in a nonstressed, ambulatory subject supports the diagnosis of Diabetes Mellitus. ADA recommended reference range Performed By: #### H EPATIC, MG, LIPASE, CMP, CBC #### [facility] [address] [place] [address] [place] Glucose [Mass/volume] in Uri ne by Test stripOrdered By: Jeramy Cunningham on 07-31-2023 Glucose Test strip (U) [Mass/Vol] Normal mg/dL Normal [facility] HCG ( test) IA.rapi d Ql (U)Ordered By: Jeramy Cunningham on 07-31-2023 HCG ( test) Ql (U) Negative [facility] HCG,Urineon 07-31-2023 Beta HCG ( test) Ql (U) Negative Normal [facility] Comment on above: Order Comment: Name Collection Type:: Clean-Voided Midstream Result Comment: PERF ORMED BY: [place] [address] PATHOLOGIST CAKE DECORATOR BAUTISTA BAKER M.D. Performed By: #### H EPATIC, MG, LIPASE, CMP, CBC #### [address] Hematocrit [Volume Fraction] of Blood by Automated countOrdered By: Jeramy Cunningham on 07-31-2023 Hematocrit (Bld) [Volume fraction] 33.2 % Low 34.0-46.4 [facility] Comment on above: Performed By: #### A DDONUAPLUS, BRITTANIECG, CUU #### [address] Hemoglobin Test strip Ql (U) Ordered By: Jeramy Cunningham on 07-31-2023 Hemoglobin Ql (U) Negative Negative [facility] Hemoglobin [Mass/volume] in BloodOrdered By: Jeramy Cunningham on 07-31-2023 Hemoglobin (Bld) [Mass/Vol] 11.2 g/dL Low 11.8-15.4 [facility] Comment on above: Performed By: #### A DDONUAPLUS, UHCG, CUU #### [address] Hepatic Panelon 07-31-2023 Albumin [Mass/Vol] 4.0 g/dL Normal 3.5-5.7 [facility] Comment on above: Performed By: #### A DDONUAPLUS, UHCG, CUU #### [address] Bilirubin,Indirect 0.3 mg/dL Normal [facility] Comment on above: Performed By: #### A DDONUAPLUS, UHCG, CUU #### [address] [place] [address] [place] Bilirubin.indirect [Mass/Vol] 0.10 mg/dL Normal 0.03-0.18 [facility] Comment on above: Performed By: #### A CORY, CG, JERONIMOU #### [facility] [address] INR in Platelet poor plasma by Coagulation assayOrdered By: Jeramy Cunningham on 07-31-2023 INR Coag (PPP) [Relative time] 1.1 {INR} Normal [facility] Comment on above: INR Therapeutic [...] H EPATIC, MG, LIPASE, CMP, CBC #### [facility] [address] [place] [address] [place] Ketones [Presence] in Urine by Test stripOrdered By: Jeramy Cunningham on 07-31-2023 Ketones Ql (U) Negative Normal Negative [facility] Comment on above: Order Comment: Name Collection Type:: Clean-Voided Midstream Performed By: #### H EPATIC, MG, LIPASE, CMP, CBC #### [facility] [address] [place] [address] [place] Leukocyte esterase [Presence ] in Urine by Test stripOrdered By: Jeramy Cunningham on 07-31-2023 Leukocyte esterase Test strip Ql (U) Negative Normal Negative [facility] Comment on above: Order Comment: Name Collection Type:: Clean-Voided Midstream Performed By: #### H EPATIC, MG, LIPASE, CMP, CBC #### [facility] [address] [place] [address] Leukocytes [#/volume] correc darvin for nucleated erythrocytes in Blood by Automated counOrdered By: Jeramy Cunningham on 07-31-2023 WBC corrected for nucl RBC Auto (Bld) [#/Vol] 7.7 10*3/uL 3.8-11.6 [facility] Leukocytes [#/volume] in Blo od by Automated countOrdered By: Jeramy Cunningham on 07-31-2023 WBC (Bld) [#/Vol] 7.7 10*3/uL Normal 3.8-11.6 [facility] Comment on above: Performed By: #### A CORY ELIS, CUU #### [address] Lipase [Enzymatic activity/v olume] in Serum or PlasmaOrdered By: Jeramy Cunningham on 07-31-2023 Lipase [Catalytic activity/Vol] 36.0 U/L Normal 11.0-82.0 [facility] Comment on above: Result Comment: PERF ORMED BY: [place] [address] PATHOLOGIST CAKE DECORATOR BAUTISTA BAKER M.D. Performed By: #### H EPATIC, MG, LIPASE, CMP, CBC #### [facility] [address] [place] [address] [place] Lymphocytes [#/volume] in Bl ood by Automated countOrdered By: Jeramy Cunningham on 07-31-2023 Lymphocytes (Bld) [#/Vol] 0.9 10*3/uL Low 1.00-4.8 [facility] Comment on above: Performed By: #### A CORY ELIS, CUU #### [place] [address] [place] Lymphocytes/100 leukocytes i n Blood by Automated countOrdered By: Jeramy Cunningham on 07-31-2023 Lymphocytes/100 WBC (Bld) 11.2 % Normal . [facility] Comment on above: Performed By: #### A JOSESITO RAY, CUU #### [address] MCH [Entitic mass] by Automa darvin countOrdered By: Jeramy Cunningham on 07-31-2023 MCH (RBC) [Entitic mass] 29.9 pg Normal 24.7-34.3 [facility] Comment on above: Performed By: #### A JOSESITO RAY, CUU #### [address] MCHC Auto (RBC) [Mass/Vol]Or dered By: Jeramy Cunningham on 07-31-2023 MCHC (RBC) [Mass/Vol] 33.8 g/dL 32.0-35.0 [facility] MCV [Entitic volume] by Auto mated countOrdered By: Jeramy Cunningham on 07-31-2023 MCV (RBC) [Entitic vol] 88.6 fL Normal 80-100 [facility] Comment on above: Performed By: #### A JOSESITO RAY, CUU #### [address] Monocyte distribution width [Entitic volume] in Blood by AutomatedOrdered By: Jeramy Cunningham on 07-31-2023 Monocyte distribution width Auto (Bld) [Entitic vol] 14.62 % 0.00-20.00 [facility] Neutrophils [#/volume] in Bl ood by Automated countOrdered By: Jeramy Cunningham on 07-31-2023 Neutrophils (Bld) [#/Vol] 6.5 10*3/uL Normal 1.8-7.7 [facility] Comment on above: Performed By: #### A JOSESITO RAY, CUU #### [address] Nitrite Test strip Ql (U)Ord ered By: Jeramy Cunningham on 07-31-2023 Nitrite Ql (U) Negative Negative [facility] No Panel InformationOrdered By: Jeramy Cunningham on 07-31-2023 Estimated GFR (CKD-EPI) > 60.0 mL/Min [facility] Creatinine Clearance (Chem 120.10 [facility] Nucleated erythrocytes [Pres ence] in Blood by Automated countOrdered By: Jeramy Cunningham on 07-31-2023 Nucleated RBC Auto Ql (Bld) 0.1 /100{WBC} 0-0.5 [facility] Partial Thromboplastin Timeo n 07-31-2023 aPTT Coag (Bld) [Time] 27.0 s Normal 25.1-36.5 [facility] Comment on above: Result Comment: A he matocrit value greater than 55% may lead to inaccurate results in coagulation testing. Patients having hematocrit values >55% require a special collection tube for coagulation studies. Please contact the laboratory at [phone] for redraw instructions. PERFORMED BY: [place] [address] PATHOLOGIST CAKE DECORATOR BAUTISTA BAKER M.D. Performed By: #### H EPATIC, MG, LIPASE, CMP, CBC #### [facility] [address] [place] [address] [place] Platelet mean volume [Entiti c volume] in Blood by Automated countOrdered By: Jeramy Cunningham on 07-31-2023 Platelet mean volume (Bld) [Entitic vol] 8.5 fL Normal 6.3-10.7 [facility] Comment on above: Performed By: #### A CORY, ELIS, CUU #### [facility] [address] [place] [address] [place] Platelets [#/volume] in Bloo d by Automated countOrdered By: Jeramy Cunningham on 07-31-2023 Platelets (Bld) [#/Vol] 276 10*3/uL Normal 150-450 [facility] Comment on above: Performed By: #### A CORY, ELIS, CUU #### [place] [address] [place] Potassium [Moles/volume] in Serum or PlasmaOrdered By: Jeramy Cunningham on 07-31-2023 Potassium [Moles/Vol] 3.8 mmol/L Normal 3.5-5.1 [facility] Comment on above: Performed By: #### H EPATIC, MG, LIPASE, CMP, CBC #### [address] Protein Test strip (U) [Mass /Vol]Ordered By: Jeramy Cunningham on 07-31-2023 Protein (U) [Mass/Vol] Negative Negative [facility] Protein [Mass/volume] in Ser um or PlasmaOrdered By: Jeramy Cunningham on 07-31-2023 Protein [Mass/Vol] 6.7 g/dL Normal 6.4-8.9 [facility] Comment on above: Performed By: #### A NISHONUAJESSICA, ElroyG, CUU #### [address] Prothrombin time (PT)Ordered By: Jeramy Cunningham on 07-31-2023 PT Coag (PPP) [Time] 12.3 s Normal 9.0-12.9 [facility] Comment on above: A hematocrit value g reater than 55% may lead to inaccurate results in coagulation testing. Patients having hematocrit values >55% require a special collection tube for coagulation studies. Please contact the laboratory at [phone] for redraw instructions. Result Comment: A he matocrit value greater than 55% may lead to inaccurate results in coagulation testing. Patients having hematocrit values >55% require a special collection tube for coagulation studies. Please contact the laboratory at [phone] for redraw instructions. Performed By: #### H EPATIC, MG, LIPASE, CMP, CBC #### [address] Serum globulin measurement b y calculation (mass/volume)Ordered By: Jeramy Cunningham on 07-31-2023 Globulin (S) [Mass/Vol] 2.7 g/dL Normal [facility] Comment on above: Performed By: #### A DDONUAPLUS, UHCG, CUU #### [address] Serum or plasma albumin/glob ulin mass ratioOrdered By: Jeramy Cunningham on 07-31-2023 Albumin/Globulin [Mass ratio] 1.5 {ratio} Normal [facility] Comment on above: Performed By: #### A DDONUAPLUS, CG, CUU #### [address] Serum or plasma anion gap de terminationOrdered By: Jeramy Cunningham on 07-31-2023 Anion gap [Moles/Vol] 10.7 mmol/L Normal 6.0-15.0 [facility] Comment on above: Performed By: #### H EPATIC, MG, LIPASE, CMP, CBC #### [address] Serum or plasma non-glucuron idated bilirubin measurement (mass/volume)Ordered By: Jeramy Cunningham on 07-31-2023 Bilirubin.indirect [Mass/Vol] 0.3 mg/dL [facility] Sodium [Moles/volume] in Ser um or PlasmaOrdered By: Jeramy Cunningham on 07-31-2023 Sodium [Moles/Vol] 140 mmol/L Normal 136-145 [facility] Comment on above: Performed By: #### H EPATIC, MG, LIPASE, CMP, CBC #### [address] Specific gravity Test strip (U) [Rel density]Ordered By: Jeramy Cunningham on 07-31-2023 Specific gravity (U) [Rel density] 1.006 1.001-1.030 [facility] Urea nitrogen [Mass/volume] in Serum or PlasmaOrdered By: Jeramy Cunningham on 07-31-2023 Urea nitrogen [Mass/Vol] 16 mg/dL Normal 7-25 [facility] Comment on above: Performed By: #### H EPATIC, MG, LIPASE, CMP, CBC #### [address] Urinalysison 07-31-2023 Bilirubin,Urine Negative Normal Negative [facility] Comment on above: Order Comment: Name Collection Type:: Clean-Voided Midstream Performed By: #### H EPATIC, MG, LIPASE, CMP, CBC #### [address] Glucose Ql (U) Normal Normal Normal [facility] Comment on above: Order Comment: Name Collection Type:: Clean-Voided Midstream Performed By: #### H EPATIC, MG, LIPASE, CMP, CBC #### [address] Nitrite,Urine Negative Normal Negative [facility] Comment on above: Order Comment: Name Collection Type:: Clean-Voided Midstream Performed By: #### H EPATIC, MG, LIPASE, CMP, CBC #### [address] Occult Blood,Urine Negative Normal Negative [facility] Comment on above: Order Comment: Name Collection Type:: Clean-Voided Midstream Performed By: #### H EPATIC, MG, LIPASE, CMP, CBC #### [address] Protein,Urine Negative Normal Negative [facility] Comment on above: Order Comment: Name Collection Type:: Clean-Voided Midstream Performed By: #### H EPATIC, MG, LIPASE, CMP, CBC #### [address] Specificy [place],Urine 1.006 Normal 1.001-1.030 [facility] Comment on above: Order Comment: Name Collection Type:: Clean-Voided Midstream Performed By: #### H EPATIC, MG, LIPASE, CMP, CBC #### [address] Urobilinogen,Urine Normal Normal Normal [facility] Comment on above: Order Comment: Name Collection Type:: Clean-Voided Midstream Performed By: #### H EPATIC, MG, LIPASE, CMP, CBC #### [address] Urine appearanceOrdered By: Jeramy Cunningham on 07-31-2023 Appearance (U) Clear Normal Clear [facility] Comment on above: Order Comment: Name Collection Type:: Clean-Voided Midstream Performed By: #### H EPATIC, MG, LIPASE, CMP, CBC #### [facility] [address] Urobilinogen Test strip (U) [Mass/Vol]Ordered By: Jeramy Cunningham on 07-31-2023 Urobilinogen (U) [Mass/Vol] Normal mg/dL Normal [facility] pH of Urine by Test stripOrd ered By: Jeramy Cunningham on 07-31-2023 pH (U) 8.0 [pH] Normal 5.0-9.0 [facility] Comment on above: Order Comment: Name Collection Type:: Clean-Voided Midstream Performed By: #### H EPATIC, MG, LIPASE, CMP, CBC #### [facility] [address] CBC W Auto Differential pane l (Bld)on 07-30-2023 Basophils (Bld) [#/Vol] 0.04 10*3/uL Normal <0.11 [facility] Comment on above: Order Comment: Speci men Type: BLOOD SPECIMENOrdering Facility: [facility] Address: [address] [place] [address] Performed By: #### 5 7021-8 ####[facility] [id number] [place] [address] [place] Basophils/100 WBC (Bld) 0.4 % Normal [facility] Comment on above: Order Comment: Speci men Type: BLOOD SPECIMENOrdering Facility: [facility] Address: [address] [place] [address] Performed By: #### 5 7021-8 ####[facility] [id number] [place] [address] [place] Differential cell count method Nom (Bld) Auto Normal [facility] Comment on above: Order Comment: Speci men Type: BLOOD SPECIMENOrdering Facility: [facility] Address: [address] [place] [address] Performed By: #### 5 7021-8 ####[facility] [id number] [place] [address] [place] Eosinophils (Bld) [#/Vol] 0.05 10*3/uL Normal <0.46 [facility] Comment on above: Order Comment: Speci men Type: BLOOD SPECIMENOrdering Facility: [facility] Address: [address] [place] [address] Performed By: #### 5 7021-8 ####[facility] [id number] [place] [address] [place] Eosinophils/100 WBC (Bld) 0.5 % Normal [facility] Comment on above: Order Comment: Speci men Type: BLOOD SPECIMENOrdering Facility: [facility] Address: [address] [place] [address] Performed By: #### 5 7021-8 ####[facility] [id number] [place] [address] [place] Erythrocyte distribution width (RBC) [Ratio] 13.0 % Normal 11.5-15.0 [facility] Comment on above: Order Comment: Speci men Type: BLOOD SPECIMENOrdering Facility: [facility] Address: [address] [place] [address] Performed By: #### 5 7021-8 ####[facility] [id number] [place] [address] [place] Hematocrit (Bld) [Volume fraction] 33.7 % Low 36.0-46.0 [facility] Comment on above: Order Comment: Speci men Type: BLOOD SPECIMENOrdering Facility: [facility] Address: [address] [place] [address] Performed By: #### 5 7021-8 ####[facility] [id number] [place] [address] [place] Hemoglobin (Bld) [Mass/Vol] 11.1 g/dL Low 11.5-15.5 [facility] Comment on above: Order Comment: Speci men Type: BLOOD SPECIMENOrdering Facility: [facility] Address: [address] [place] [address] Performed By: #### 5 7021-8 ####[facility] [id number] [place] [address] [place] Immature granulocytes (Bld) [#/Vol] 0.03 10*3/uL Normal <0.10 [facility] Comment on above: Order Comment: Speci men Type: BLOOD SPECIMENOrdering Facility: [facility] Address: [address] [place] [address] Performed By: #### 5 7021-8 ####[facility] [id number] [place] [address] [place] Immature granulocytes/100 WBC (Bld) 0.3 % Normal [facility] Comment on above: Order Comment: Speci men Type: BLOOD SPECIMENOrdering Facility: [facility] Address: [address] [place] [address] Performed By: #### 5 7021-8 ####[facility] [id number] [place] [address] [place] Lymphocytes (Bld) [#/Vol] 2.10 10*3/uL Normal 1.00-4.00 [facility] Comment on above: Order Comment: Speci men Type: BLOOD SPECIMENOrdering Facility: [facility] Address: [address] [place] [address] Performed By: #### 5 7021-8 ####[facility] [id number] [place] [address] [place] Lymphocytes/100 WBC (Bld) 22.0 % Normal [facility] Comment on above: Order Comment: Speci men Type: BLOOD SPECIMENOrdering Facility: [facility] Address: [address] [place] [address] Performed By: #### 5 7021-8 ####[facility] [id number] [place] [address] [place] MCH (RBC) [Entitic mass] 29.8 pg Normal 26.0-34.0 [facility] Comment on above: Order Comment: Speci men Type: BLOOD SPECIMENOrdering Facility: [facility] Address: [address] [place] [address] Performed By: #### 5 7021-8 ####[facility]IA [id number] [place] [address] [place] MCHC (RBC) [Mass/Vol] 32.9 g/dL Normal 30.5-36.0 [facility] Comment on above: Order Comment: Speci men Type: BLOOD SPECIMENOrdering Facility: [facility] Address: [address] [place] [address] Performed By: #### 5 7021-8 ####[facility] [id number] [place] [address] [place] MCV (RBC) [Entitic vol] 90.3 fL Normal 80.0-100.0 [facility] Comment on above: Order Comment: Speci men Type: BLOOD SPECIMENOrdering Facility: [facility] Address: [address] [place] [address] Performed By: #### 5 7021-8 ####[facility]IA [id number] [place] [address] [place] Monocytes (Bld) [#/Vol] 0.57 10*3/uL Normal <0.87 [facility] Comment on above: Order Comment: Speci men Type: BLOOD SPECIMENOrdering Facility: [facility] Address: [address] [place] [address] Performed By: #### 5 7021-8 ####[facility] [id number] [place] [place] [address] [place] Monocytes/100 WBC (Bld) 6.0 % Normal [facility] Comment on above: Order Comment: Speci men Type: BLOOD SPECIMENOrdering Facility: [facility] Address: [address] [place] [address] Performed By: #### 5 7021-8 ####[facility] LABCLIA [id number] [place] [address] [place] Neutrophils (Bld) [#/Vol] 6.74 10*3/uL Normal 1.45-7.50 [facility] Comment on above: Order Comment: Speci men Type: BLOOD SPECIMENOrdering Facility: [facility] Address: [address] [place] [address] Performed By: #### 5 7021-8 ####[facility] LABCLIA [id number] [place] [address] [place] Neutrophils/100 WBC (Bld) 70.8 % Normal [facility] Comment on above: Order Comment: Speci men Type: BLOOD SPECIMENOrdering Facility: [facility] Address: [address] [place] [address] Performed By: #### 5 7021-8 ####[facility] LABCLIA [id number] [place] [address] [place] Nucleated RBC (Bld) [#/Vol] 10*3/uL Normal <0.01 [facility] Comment on above: Order Comment: Speci men Type: BLOOD SPECIMENOrdering Facility: [facility] Address: [address] [place] [address] Performed By: #### 5 7021-8 ####[facility] LABCLIA [id number] [place] [address] [place] Nucleated RBC/100 WBC (Bld) [Ratio] 0.0 /100 WBC Normal [facility] Comment on above: Order Comment: Speci men Type: BLOOD SPECIMENOrdering Facility: [facility] Address: [address] [place] [address] Performed By: #### 5 7021-8 ####[facility] LABCLIA [id number] [address] [address] [place] Platelet mean volume (Bld) [Entitic vol] 10.3 fL Normal 9.0-12.7 [facility] Comment on above: Order Comment: Speci men Type: BLOOD SPECIMENOrdering Facility: [facility] Address: [address] [place] [address] Performed By: #### 5 7021-8 ####[facility] LABCLIA [id number] [place] [address] [place] Platelets (Bld) [#/Vol] 258 10*3/uL Normal 150-400 [facility] Comment on above: Order Comment: Speci men Type: BLOOD SPECIMENOrdering Facility: [facility] Address: [address] [place] [address] Performed By: #### 5 7021-8 ####[facility] LABIA [id number] [place] [address] [place] RBC (Bld) [#/Vol] 3.73 10*6/uL Low 3.90-5.20 [facility] Comment on above: Order Comment: Speci men Type: BLOOD SPECIMENOrdering Facility: [facility] Address: [address] [place] [address] Performed By: #### 5 7021-8 ####[facility] LABIA [id number] [place] [address] [place] WBC (Bld) [#/Vol] 9.53 10*3/uL Normal 3.70-11.00 [facility] Comment on above: Order Comment: Speci men Type: BLOOD SPECIMENOrdering Facility: [facility] Address: [address] [place] [address] Performed By: #### 5 7021-8 ####[facility] LABIA [id number] [address] STATES [place] [facility] Comprehensive metabolic 2000 panelon 07-30-2023 Albumin [Mass/Vol] 4.0 g/dL Normal 3.9-4.9 [facility] Comment on above: Order Comment: Speci men Type: BLOOD SPECIMENOrdering Facility: [facility] Address: [address] [place] [address] Performed By: #### 2 4323-8 ####[facility] LABCLIA [id number] [place] [address] [place] ALP [Catalytic activity/Vol] 64 U/L Normal 34-123 [facility] Comment on above: Order Comment: Speci men Type: BLOOD SPECIMENOrdering Facility: [facility] Address: [address] [place] [address] Performed By: #### 2 4323-8 ####[facility] LABCLIA [id number] [address] [place] ALT [Catalytic activity/Vol] 30 U/L Normal 7-38 [facility] Comment on above: Order Comment: Speci men Type: BLOOD SPECIMENOrdering Facility: [facility] Address: [address] [place] [address] Performed By: #### 2 4323-8 ####[facility] LABCLIA [id number] [place] [address] [place] Anion gap [Moles/Vol] 12 mmol/L Normal 8-15 [facility] Comment on above: Order Comment: Speci men Type: BLOOD SPECIMENOrdering Facility: [facility] Address: [address] [place] [address] Performed By: #### 2 4323-8 ####[facility] LABCLIA [id number] [place] [address] [place] AST [Catalytic activity/Vol] 30 U/L Normal 13-35 [facility] Comment on above: Order Comment: Speci men Type: BLOOD SPECIMENOrdering Facility: [facility] Address: [address] [place] [address] Performed By: #### 2 4323-8 ####[facility] LABCLIA [id number] [place] [address] [place] Bilirubin [Mass/Vol] 0.2 mg/dL Normal 0.2-1.3 [facility] Comment on above: Order Comment: Speci men Type: BLOOD SPECIMENOrdering Facility: [facility] Address: [address] [place] [address] Performed By: #### 2 4323-8 ####[facility] LABCLIA [id number] [place] [address] [place] Calcium [Mass/Vol] 8.7 mg/dL Normal 8.5-10.2 [facility] Comment on above: Order Comment: Speci men Type: BLOOD SPECIMENOrdering Facility: [facility] Address: [address] [place] [address] Performed By: #### 2 4323-8 ####[facility] LABCLIA [id number] [place] [address] [place] Chloride [Moles/Vol] 105 mmol/L Normal 98-107 [facility] Comment on above: Order Comment: Speci men Type: BLOOD SPECIMENOrdering Facility: [facility] Address: [address] [place] [address] Performed By: #### 2 4323-8 ####[facility] LABCLIA [id number] [place] [address] [place] CO2 [Moles/Vol] 22 mmol/L Normal 22-30 [facility] Comment on above: Order Comment: Speci men Type: BLOOD SPECIMENOrdering Facility: [facility] Address: [address] [place] [address] Performed By: #### 2 4323-8 ####[facility] LABCLIA [id number] [place] [address] [place] Creatinine [Mass/Vol] 0.59 mg/dL Normal 0.58-0.96 [facility] Comment on above: Order Comment: Geraldo marrero Type: BLOOD SPECIMENOrdering Facility: [facility] Address: [address] [place] [address] Performed By: #### 2 4323-8 ####[facility] LABCLIA [id number] [place] [address] [place] [facility] Creatinine and Glomerular filtration rate.predicted panel (S/P/Bld) 121 mL/min/1.73m??? Normal >=60 [facility] Comment on above: Order Comment: Geraldo marrero Type: BLOOD SPECIMENOrdering Facility: [facility] Address: [address] [place] [address] Result Comment: Jessica mated Glomerular Filtration Rate [...] actual GFR. Performed By: #### 2 4323-8 ####[facility] LABCLIA [id number] [place] [address] [place] Glucose [Mass/Vol] 88 mg/dL Normal 74-99 [facility] Comment on above: Order Comment: Geraldo marrero Type: BLOOD SPECIMENOrdering Facility: [facility] Address: [address] [place] [address] Result Comment: The [employer] [employer] (ADA) provides guidance for cutoff [...] Standards of Medical Care in Diabetes 2016, [employer]. Diabetes Care. 2016.39(Suppl 1). Performed By: #### 2 4323-8 ####[facility] LABCLIA [id number] [address] [address] [place] Potassium [Moles/Vol] 4.0 mmol/L Normal 3.7-5.1 [facility] Comment on above: Order Comment: Speci men Type: BLOOD SPECIMENOrdering Facility: [facility] Address: [address] [place] [address] Performed By: #### 2 4323-8 ####[facility] LABCLIA [id number] [place] [address] [place] Protein [Mass/Vol] 6.5 g/dL Normal 6.3-8.0 [facility] Comment on above: Order Comment: Speci men Type: BLOOD SPECIMENOrdering Facility: [facility] Address: [address] [place] [address] Performed By: #### 2 4323-8 ####[facility] LABCLIA [id number] [place] [address] [place] Sodium [Moles/Vol] 139 mmol/L Normal 136-144 [facility] Comment on above: Order Comment: Speci men Type: BLOOD SPECIMENOrdering Facility: [facility] Address: [address] [place] [address] Performed By: #### 2 4323-8 ####[facility] LABCLIA [id number] [address] [address] [place] Urea nitrogen [Mass/Vol] 13 mg/dL Normal 7-21 [facility] Comment on above: Order Comment: Speci men Type: BLOOD SPECIMENOrdering Facility: [facility] Address: [address] [place], [place] [address] Performed By: #### 2 4323-8 ####[facility] LABCLIA [id number] [facility] [id number] [place] [address] [place] Basic metabolic 2000 panelon 07-20-2023 Anion gap [Moles/Vol] 14 mmol/L Normal 9-18 [facility] Comment on above: Order Comment: Speci men Type: BLOOD SPECIMENOrdering Facility: [facility] Address: [address] [place] [address] Performed By: #### 2 4321-2, , 2776-02 ####[facility]ATORYCLIA [id number] [place] [id number] [place] Calcium [Mass/Vol] 8.9 mg/dL Normal 8.5-10.2 [facility] Comment on above: Order Comment: Speci men Type: BLOOD SPECIMENOrdering Facility: [facility] Address: [address] [place] [address] Performed By: #### 2 4321-2, , 2776-02 ####[facility]ORATORYCLIA [id number] [place] [address] [place] Chloride [Moles/Vol] 110 mmol/L High 97-105 [facility] Comment on above: Order Comment: Speci men Type: BLOOD SPECIMENOrdering Facility: [facility] Address: [address] [place] [address] Performed By: #### 2 4321-2, , 2776-02 ####[facility]ORATORYCLIA [id number] [place] [id number] [place] CO2 [Moles/Vol] 19 mmol/L Low 22-30 [facility] Comment on above: Order Comment: Speci men Type: BLOOD SPECIMENOrdering Facility: [facility] Address: [address] [place] [address] Performed By: #### 2 4321-2, , 2776-02 ####[facility]ORATORYCLIA [id number] [place] [id number] [place] Creatinine [Mass/Vol] 0.76 mg/dL Normal 0.58-0.96 [facility] Comment on above: Order Comment: Speci men Type: BLOOD SPECIMENOrdering Facility: [facility] Address: [address] [place] [address] Performed By: #### 2 4321-2, , 2776-02 ####[facility]ORATORYCLIA [id number] [place] [id number] [place] Creatinine and Glomerular filtration rate.predicted panel (S/P/Bld) 106 mL/min/1.73m??? Normal >=60 [facility] Comment on above: Order Comment: Geraldo [facility] Type: BLOOD SPECIMENOrdering Facility: [facility] Address: [address] [place] [address] Result Comment: Jessica mated Glomerular Filtration Rate [...] Performed By: #### 2 4321-2, , 2776-02 ####[facility]ORATORYCLIA [id number] [place] [id number] [place] Glucose [Mass/Vol] 97 mg/dL Normal 74-99 [facility] Comment on above: Order Comment: Geraldo elida Type: BLOOD SPECIMENOrdering Facility: [facility] Address: [address] [place] [address] Result Comment: The [place] Diabetes Association (ADA) provides guidance for cutoff [...] Standards of Medical Care in Diabetes 2016, [place] [employer]. Diabetes Care. 2016.39(Suppl 1). Performed By: #### 2 4321-2, 05563-0, 2776-02 ####[facility]ORATORYCLIA [id number] [place] [id number] [place] Potassium [Moles/Vol] 4.0 mmol/L Normal 3.7-5.1 [facility] Comment on above: Order Comment: Speci men Type: BLOOD SPECIMENOrdering Facility: [facility] Address: [address] [place] [address] Performed By: #### 2 4321-2, , 2776-02 ####[facility]ORATORYCLIA [id number] [place] [id number] [place] Sodium [Moles/Vol] 143 mmol/L Normal 136-144 [facility] Comment on above: Order Comment: Speci men Type: BLOOD SPECIMENOrdering Facility: [facility] Address: [address] [place] [address] Performed By: #### 2 4321-2, , 2776-02 ####[facility]ATORYCLIA [id number] [place] [id number] [place] Urea nitrogen [Mass/Vol] 8 mg/dL Normal 7-21 [facility] Comment on above: Order Comment: Speci men Type: BLOOD SPECIMENOrdering Facility: [facility] Address: [address] [place] [address] Performed By: #### 2 4321-2, , 2776-02 ####[facility]ORATORYCLIA [id number] [place] [id number] [place] CASE MANAGEMon 07-20-2023 CASE MANAGEM Normal [facility] CBC W Auto Differential pane l (Bld)on 07-20-2023 Basophils (Bld) [#/Vol] 10*3/uL Normal <0.11 [facility] Comment on above: Order Comment: Speci men Type: BLOOD SPECIMENOrdering Facility: [facility] Address: [address] [place] [address] Performed By: #### 5 7021-8 ####[facility]ORATORYCLIA [id number] [place] [address] [place] Basophils/100 WBC (Bld) 0.4 % Normal [facility] Comment on above: Order Comment: Speci men Type: BLOOD SPECIMENOrdering Facility: [facility] Address: [address] [place] [address] Performed By: #### 5 7021-8 ####[facility]ORATORYCLIA [id number] [place] [id number] [place] Differential cell count method Nom (Bld) Auto Normal [facility] Comment on above: Order Comment: Speci men Type: BLOOD SPECIMENOrdering Facility: [facility] Address: [address] [place] [address] Performed By: #### 5 7021-8 ####[facility]ORATORYCLIA [id number] [place] [address] [place] Eosinophils (Bld) [#/Vol] 0.19 10*3/uL Normal <0.46 [facility] Comment on above: Order Comment: Speci men Type: BLOOD SPECIMENOrdering Facility: [facility] Address: [address] [place] [address] Performed By: #### 5 7021-8 ####[facility]ORATORYCLIA [id number] [address] [place] Eosinophils/100 WBC (Bld) 3.8 % Normal [facility] Comment on above: Order Comment: Speci men Type: BLOOD SPECIMENOrdering Facility: [facility] Address: [address] [place] [address] Performed By: #### 5 7021-8 ####[facility]ORATORYCLIA [id number] [place] [id number] [place] Erythrocyte distribution width (RBC) [Ratio] 12.8 % Normal 11.5-15.0 [facility] Comment on above: Order Comment: Speci men Type: BLOOD SPECIMENOrdering Facility: [facility] Address: [address] [place] [address] Performed By: #### 5 7021-8 ####[facility]ORATORYCLIA [id number] [place] [address] [place] Hematocrit (Bld) [Volume fraction] 31.6 % Low 36.0-46.0 [facility] Comment on above: Order Comment: Speci men Type: BLOOD SPECIMENOrdering Facility: [facility] Address: [address] [place] [address] Performed By: #### 5 7021-8 ####[facility] LABORATORYCLIA [id number] [place] [address] [place] Hemoglobin (Bld) [Mass/Vol] 10.5 g/dL Low 11.5-15.5 [facility] Comment on above: Order Comment: Speci men Type: BLOOD SPECIMENOrdering Facility: [facility] Address: [address] [place] [address] Performed By: #### 5 7021-8 ####[facility] LABORATORYCLIA [id number] [place] [address] [place] Immature granulocytes (Bld) [#/Vol] 10*3/uL Normal <0.10 [facility] Comment on above: Order Comment: Speci men Type: BLOOD SPECIMENOrdering Facility: [facility] Address: [address] [place] [address] Performed By: #### 5 7021-8 ####[facility] LABORATORYCLIA [id number] [place] [address] [place] Immature granulocytes/100 WBC (Bld) 0.2 % Normal [facility] Comment on above: Order Comment: Speci men Type: BLOOD SPECIMENOrdering Facility: [facility] Address: [address] [place] [address] Performed By: #### 5 7021-8 ####[facility] LABORATORYCLIA [id number] [place] [id number] [place] Lymphocytes (Bld) [#/Vol] 0.99 10*3/uL Low 1.00-4.00 [facility] Comment on above: Order Comment: Speci men Type: BLOOD SPECIMENOrdering Facility: [facility] Address: [address] [place] [address] Performed By: #### 5 7021-8 ####[facility] LABORATORYCLIA [id number] [address] [place] Lymphocytes/100 WBC (Bld) 19.8 % Normal [facility] Comment on above: Order Comment: Speci men Type: BLOOD SPECIMENOrdering Facility: [facility] Address: [address] [place] [address] Performed By: #### 5 7021-8 ####[facility] LABORATORYCLIA [id number] [address] MCH (RBC) [Entitic mass] 30.2 pg Normal 26.0-34.0 [facility] Comment on above: Order Comment: Speci men Type: BLOOD SPECIMENOrdering Facility: [facility] Address: [address] [place] [address] Performed By: #### 5 7021-8 ####[facility]ORATORYCLIA [id number] [address] [place] MCHC (RBC) [Mass/Vol] 33.2 g/dL Normal 30.5-36.0 [facility] Comment on above: Order Comment: Speci men Type: BLOOD SPECIMENOrdering Facility: [facility] Address: [address] [place] [address] Performed By: #### 5 7021-8 ####[facility]ORATORYCLIA [id number] [address] [place] MCV (RBC) [Entitic vol] 90.8 fL Normal 80.0-100.0 [facility] Comment on above: Order Comment: Speci men Type: BLOOD SPECIMENOrdering Facility: [facility] Address: [address] [place] [address] Performed By: #### 5 7021-8 ####[facility] LABORATORYCLIA [id number] [address] Monocytes (Bld) [#/Vol] 0.32 10*3/uL Normal <0.87 [facility] Comment on above: Order Comment: Speci men Type: BLOOD SPECIMENOrdering Facility: [facility] Address: [address] [place] [address] Performed By: #### 5 7021-8 ####[facility] LABORATORYCLIA [id number] [place] [id number] [place] Monocytes/100 WBC (Bld) 6.4 % Normal [facility] Comment on above: Order Comment: Speci men Type: BLOOD SPECIMENOrdering Facility: [facility] Address: [address] [place] [address] Performed By: #### 5 7021-8 ####[facility]ORATORYCLIA [id number] [place] [id number] [place] Neutrophils (Bld) [#/Vol] 3.47 10*3/uL Normal 1.45-7.50 [facility] Comment on above: Order Comment: Speci men Type: BLOOD SPECIMENOrdering Facility: [facility] Address: [address] [place] [address] Performed By: #### 5 7021-8 ####[facility]ORATORYCLIA [id number] [place] [id number] [place] Neutrophils/100 WBC (Bld) 69.4 % Normal [facility] Comment on above: Order Comment: Speci men Type: BLOOD SPECIMENOrdering Facility: [facility] Address: [address] [place] [address] Performed By: #### 5 7021-8 ####[facility]ORATORYCLIA [id number] [place] [id number] [place] Nucleated RBC (Bld) [#/Vol] 10*3/uL Normal <0.01 [facility] Comment on above: Order Comment: Speci men Type: BLOOD SPECIMENOrdering Facility: [facility] Address: [address] [place] [address] Performed By: #### 5 7021-8 ####[facility] LABORATORYCLIA [id number] [place] [id number] [place] Nucleated RBC/100 WBC (Bld) [Ratio] 0.0 /100 WBC Normal [facility] Comment on above: Order Comment: Speci men Type: BLOOD SPECIMENOrdering Facility: [facility] Address: [address] [place] [address] Performed By: #### 5 7021-8 ####[facility] LABORATORYCLIA [id number] [place] [id number] [place] Platelet mean volume (Bld) [Entitic vol] 11.1 fL Normal 9.0-12.7 [facility] Comment on above: Order Comment: Speci men Type: BLOOD SPECIMENOrdering Facility: [facility] Address: [address] [place] [address] Performed By: #### 5 7021-8 ####[facility] LABORATORYCLIA [id number] [place] [id number] [place] Platelets (Bld) [#/Vol] 225 10*3/uL Normal 150-400 [facility] Comment on above: Order Comment: Speci men Type: BLOOD SPECIMENOrdering Facility: [facility] Address: [address] [place] [address] Performed By: #### 5 7021-8 ####[facility] LABORATORYCLIA [id number] [place] [id number] [place] RBC (Bld) [#/Vol] 3.48 10*6/uL Low 3.90-5.20 [facility] Comment on above: Order Comment: Speci men Type: BLOOD SPECIMENOrdering Facility: [facility] Address: [address] [place] [address] Performed By: #### 5 7021-8 ####[facility] LABORATORYCLIA [id number] [place] [id number] [place] WBC (Bld) [#/Vol] 5.00 10*3/uL Normal 3.70-11.00 [facility] Comment on above: Order Comment: Speci men Type: BLOOD SPECIMENOrdering Facility: [facility] Address: [address] [place] [address] Performed By: #### 5 7021-8 ####[facility] LABORATORYCLIA [id number] [place] [id number] [place] CNDSon 07-20-2023 CNDS Normal [facility] Magnesium SerPl-ncon 07-19 Magnesium [Mass/Vol] 2.1 mg/dL Normal 1.7-2.3 [facility] Comment on above: Order Comment: Speci men Type: BLOOD SPECIMENOrdering Facility: [facility] Address: [address] [place], [place] [address] Performed By: #### 2 4321-2, , 2776-02 ####[facility]ATORYCLIA [id number] [place] [id number] [place] NURSING PROGon 07-20-2023 NURSING PROG Normal [facility]ate [facility] 07-19 Phosphate [Mass/Vol] 4.2 mg/dL Normal 2.7-4.8 [facility] Comment on above: Order Comment: Speci men Type: BLOOD SPECIMENOrdering Facility: [facility] Address: [address] [place] [address] Performed By: #### 2 4321-2, , 2776-02 ####[facility] LABORATORYCLIA [id number] [place] [id number] [place] Basic metabolic 2000 panelon 07-19-2023 Anion gap [Moles/Vol] 9 mmol/L Normal 9-18 [facility] Comment on above: Order Comment: Speci men Type: BLOOD SPECIMENOrdering Facility: [facility] Address: [address] [place], [place] [address] Performed By: #### 2 4321-2, , 2776-02 ####[facility] LABORATORYCLIA [id number] [place] [id number] [place] Calcium [Mass/Vol] 8.7 mg/dL Normal 8.5-10.2 [facility] Comment on above: Order Comment: Speci men Type: BLOOD SPECIMENOrdering Facility: [facility] Address: [address] [place], [place] [address] Performed By: #### 2 4321-2, , 2776-02 ####[facility] LABORATORYCLIA [id number] [place] [id number] [place] Chloride [Moles/Vol] 107 mmol/L High 97-105 [facility] Comment on above: Order Comment: Speci men Type: BLOOD SPECIMENOrdering Facility: [facility] Address: [address] [place] [address] Performed By: #### 2 4321-2, , 2776-02 ####[facility] LABORATORYCLIA [id number] [place] [id number] [place] CO2 [Moles/Vol] 23 mmol/L Normal 22-30 [facility] Comment on above: Order Comment: Speci men Type: BLOOD SPECIMENOrdering Facility: [facility] Address: [address] [place] [address] Performed By: #### 2 4321-2, , 2776-02 ####[facility] LABORATORYCLIA [id number] [place] [id number] [place] Creatinine [Mass/Vol] 0.75 mg/dL Normal 0.58-0.96 [facility] Comment on above: Order Comment: Speci men Type: BLOOD SPECIMENOrdering Facility: [facility] Address: [address] [place] [address] Performed By: #### 2 4321-2, , 2776-02 ####[facility] LABORATORYCLIA [id number] [place] [id number] [facility] Creatinine and Glomerular filtration rate.predicted panel (S/P/Bld) 107 mL/min/1.73m??? Normal >=60 [facility] Comment on above: Order Comment: Speci men Type: BLOOD SPECIMENOrdering Facility: [facility] Address: [address] [place] [address] Result Comment: Jessica mated Glomerular Filtration Rate [...] Performed By: #### 2 4321-2, , 2776-02 ####[facility] LABORATORYCLIA [id number] [place] [id number] [place] Glucose [Mass/Vol] 81 mg/dL Normal 74-99 [facility] Comment on above: Order Comment: Speci men Type: BLOOD SPECIMENOrdering Facility: [facility] Address: [address] [place] [address] Result Comment: The [place] Diabetes Association (ADA) provides guidance for cutoff [...] Standards of Medical Care in Diabetes 2016, [place] [employer]. Diabetes Care. 2016.39(Suppl 1). Performed By: #### 2 4321-2, , 2776-02 ####[facility] LABORATORYCLIA [id number] [place] [id number] [place] Potassium [Moles/Vol] 3.9 mmol/L Normal 3.7-5.1 [facility] Comment on above: Order Comment: Speci men Type: BLOOD SPECIMENOrdering Facility: [facility] Address: [address] [place] [address] Performed By: #### 2 4321-2, , 2776-02 ####[facility] LABORATORYCLIA [id number] [place] [id number] [place] Sodium [Moles/Vol] 139 mmol/L Normal 136-144 [facility] Comment on above: Order Comment: Speci men Type: BLOOD SPECIMENOrdering Facility: [facility] Address: [address] [place] [id number] Performed By: #### 2 4321-2, , 2776-02 ####[facility]ORATORYCLIA [id number] [place] [id number] [place] Urea nitrogen [Mass/Vol] 6 mg/dL Low 7- [facility] Comment on above: Order Comment: Speci men Type: BLOOD SPECIMENOrdering Facility: [facility] Address: [address] [place] [address] Performed By: #### 2 4321-2, , 2776-02 ####[facility]ORATORYCLIA [id number] [place] [id number] [place] CASE MGT INIT ASSESon 2023 CASE MGT INIT ASSES Normal [facility] CBC W Auto Differential pane l (Bld)on 07-19-2023 Basophils (Bld) [#/Vol] 0.04 10*3/uL Normal <0.11 [facility] Comment on above: Order Comment: Speci men Type: BLOOD SPECIMENOrdering Facility: [facility] Address: [address] [place] [address] Performed By: #### 5 7021-8 ####[facility] LABORATORYCLIA [id number] [place] [id number] [place] Basophils/100 WBC (Bld) 1.3 % Normal [facility] Comment on above: Order Comment: Speci men Type: BLOOD SPECIMENOrdering Facility: [facility] Address: [address] [place] [address] Performed By: #### 5 7021-8 ####[facility]ORATORYCLIA [id number] [place] [id number] [place] Differential cell count method Nom (Bld) Auto Normal [facility] Comment on above: Order Comment: Speci men Type: BLOOD SPECIMENOrdering Facility: [facility] Address: [address] [place] [address] Performed By: #### 5 7021-8 ####[facility]ORATORYCLIA [id number] [place] [id number] [place] Eosinophils (Bld) [#/Vol] 0.28 10*3/uL Normal <0.46 [facility] Comment on above: Order Comment: Speci men Type: BLOOD SPECIMENOrdering Facility: [facility] Address: [address] [place] [address] Performed By: #### 5 7021-8 ####[facility] LABORATORYCLIA [id number] [place] [address] [place] Eosinophils/100 WBC (Bld) 9.1 % Normal [facility] Comment on above: Order Comment: Speci men Type: BLOOD SPECIMENOrdering Facility: [facility] Address: [address] [place] [address] Performed By: #### 5 7021-8 ####[facility] LABORATORYCLIA [id number] [place] [address] [place] Erythrocyte distribution width (RBC) [Ratio] 12.6 % Normal 11.5-15.0 [facility] Comment on above: Order Comment: Speci men Type: BLOOD SPECIMENOrdering Facility: [facility] Address: [address] [place] [address] Performed By: #### 5 7021-8 ####[facility] LABORATORYCLIA [id number] [place] [address] [place] Hematocrit (Bld) [Volume fraction] 29.7 % Low 36.0-46.0 [facility] Comment on above: Order Comment: Speci men Type: BLOOD SPECIMENOrdering Facility: [facility] Address: [address] [place] [address] Performed By: #### 5 7021-8 ####[facility] LABORATORYCLIA [id number] [place] [address] [place] Hemoglobin (Bld) [Mass/Vol] 10.0 g/dL Low 11.5-15.5 [facility] Comment on above: Order Comment: Speci men Type: BLOOD SPECIMENOrdering Facility: [facility] Address: [address] [place] [address] Performed By: #### 5 7021-8 ####[facility] LABORATORYCLIA [id number] [place] [address] [place] Immature granulocytes (Bld) [#/Vol] 10*3/uL Normal <0.10 [facility] Comment on above: Order Comment: Speci men Type: BLOOD SPECIMENOrdering Facility: [facility] Address: [address] [place] [address] Performed By: #### 5 7021-8 ####[facility] LABORATORYCLIA [id number] [place] [id number] [facility] [place] Immature granulocytes/100 WBC (Bld) 0.3 % Normal [facility] Comment on above: Order Comment: Speci men Type: BLOOD SPECIMENOrdering Facility: [facility] Address: [address] [place] [address] Performed By: #### 5 7021-8 ####[facility] LABORATORYCLIA [id number] [address] [place] Lymphocytes (Bld) [#/Vol] 1.18 10*3/uL Normal 1.00-4.00 [facility] Comment on above: Order Comment: Speci men Type: BLOOD SPECIMENOrdering Facility: [facility] Address: [address] [place] [address] Performed By: #### 5 7021-8 ####[facility] LABORATORYCLIA [id number] [address] Lymphocytes/100 WBC (Bld) 38.2 % Normal [facility] Comment on above: Order Comment: Speci men Type: BLOOD SPECIMENOrdering Facility: [facility] Address: [address] [place] [address] Performed By: #### 5 7021-8 ####[facility] LABORATORYCLIA [id number] [place] [id number] [place] MCH (RBC) [Entitic mass] 29.9 pg Normal 26.0-34.0 [facility] Comment on above: Order Comment: Speci men Type: BLOOD SPECIMENOrdering Facility: [facility] Address: [address] [place] [address] Performed By: #### 5 7021-8 ####[facility] LABORATORYCLIA [id number] [place] [address] [place] MCHC (RBC) [Mass/Vol] 33.7 g/dL Normal 30.5-36.0 [facility] Comment on above: Order Comment: Speci men Type: BLOOD SPECIMENOrdering Facility: [facility] Address: [address] [place] [address] Performed By: #### 5 7021-8 ####[facility] LABORATORYCLIA [id number] [place] [id number] [place] MCV (RBC) [Entitic vol] 88.9 fL Normal 80.0-100.0 [facility] Comment on above: Order Comment: Speci men Type: BLOOD SPECIMENOrdering Facility: [facility] Address: [address] [place] [address] Performed By: #### 5 7021-8 ####[facility] LABORATORYCLIA [id number] [place] [address] [place] Monocytes (Bld) [#/Vol] 0.26 10*3/uL Normal <0.87 [facility] Comment on above: Order Comment: Speci men Type: BLOOD SPECIMENOrdering Facility: [facility] Address: [address] [place] [address] Performed By: #### 5 7021-8 ####[facility] LABORATORYCLIA [id number] [address] [place] Monocytes/100 WBC (Bld) 8.4 % Normal [facility] Comment on above: Order Comment: Speci men Type: BLOOD SPECIMENOrdering Facility: [facility] Address: [address] [place] [address] Performed By: #### 5 7021-8 ####[facility] LABORATORYCLIA [id number] [place] [id number] [place] Neutrophils (Bld) [#/Vol] 1.32 10*3/uL Low 1.45-7.50 [facility] Comment on above: Order Comment: Speci men Type: BLOOD SPECIMENOrdering Facility: [facility] Address: [address] [place] [address] Performed By: #### 5 7021-8 ####[facility]ORATORYCLIA [id number] [place] [id number] [place] Neutrophils/100 WBC (Bld) 42.7 % Normal [facility] Comment on above: Order Comment: Speci men Type: BLOOD SPECIMENOrdering Facility: [facility] Address: [address] [place] [address] Performed By: #### 5 7021-8 ####[facility] LABORATORYCLIA [id number] [place] [address] [place] Nucleated RBC (Bld) [#/Vol] 10*3/uL Normal <0.01 [facility] Comment on above: Order Comment: Speci men Type: BLOOD SPECIMENOrdering Facility: [facility] Address: [address] [place] [address] Performed By: #### 5 7021-8 ####[facility] LABORATORYCLIA [id number] [address] [place] Nucleated RBC/100 WBC (Bld) [Ratio] 0.0 /100 WBC Normal [facility] Comment on above: Order Comment: Speci men Type: BLOOD SPECIMENOrdering Facility: [facility] Address: [address] [place] [address] Performed By: #### 5 7021-8 ####[facility] LABORATORYCLIA [id number] [address] [place] Platelet mean volume (Bld) [Entitic vol] 10.6 fL Normal 9.0-12.7 [facility] Comment on above: Order Comment: Speci men Type: BLOOD SPECIMENOrdering Facility: [facility] Address: [address] [place] [address] Performed By: #### 5 7021-8 ####[facility] LABORATORYCLIA [id number] [place] [address] [place] Platelets (Bld) [#/Vol] 210 10*3/uL Normal 150-400 [facility] Comment on above: Order Comment: Speci men Type: BLOOD SPECIMENOrdering Facility: [facility] Address: [address] [place] [address] Performed By: #### 5 7021-8 ####[facility] LABORATORYCLIA [id number] [place] [address] [place] RBC (Bld) [#/Vol] 3.34 10*6/uL Low 3.90-5.20 [facility] Comment on above: Order Comment: Speci men Type: BLOOD SPECIMENOrdering Facility: [facility] Address: [facility] [place] [id number] Performed By: #### 5 7021-8 ####[facility] LABORATORYCLIA [id number] [place] [id number] [place] WBC (Bld) [#/Vol] 3.09 10*3/uL Low 3.70-11.00 [facility] Comment on above: Order Comment: Speci men Type: BLOOD SPECIMENOrdering Facility: [facility] Address: [address] [place] [address] Performed By: #### 5 7021-8 ####[facility] LABORATORYCLIA [id number] [place] [id number] [place] Magnesium SerPl-mCncon 07-18 Magnesium [Mass/Vol] 2.0 mg/dL Normal 1.7-2.3 [facility] Comment on above: Order Comment: Speci men Type: BLOOD SPECIMENOrdering Facility: [facility] Address: [facility] [place] [id number] Performed By: #### 2 4321-2, 44386-2, 2777-1 ####[facility] LABORATORYCLIA [id number] [place] [id number] [place] NUTRITIONon 07-19-2023 NUTRITION Normal [facility] Phosphate SerPl-mCncon 07-18 Phosphate [Mass/Vol] 4.3 mg/dL Normal 2.7-4.8 [facility] Comment on above: Order Comment: Speci men Type: BLOOD SPECIMENOrdering Facility: [facility] Address: [address] [place], [place] [address] Performed By: #### 2 4321-2, , 2776-02 ####[facility]ORATORYCLIA [id number] [place] [address] [place] ALLIED HEALTHon 07-18-2023 ALLIED HEALTH Normal [facility] ALLIED HEALTH Normal [facility] Basic metabolic 2000 panelon 07-18-2023 Anion gap [Moles/Vol] 9 mmol/L Normal 9-18 [facility] Comment on above: Order Comment: Speci men Type: BLOOD SPECIMENOrdering Facility: [facility] Address: [address] [place] [address] Performed By: #### 2 4321-2, , 2776-02 ####[facility] LABORATORYCLIA [id number] [place] [id number] [place] Calcium [Mass/Vol] 8.5 mg/dL Normal 8.5-10.2 [facility] Comment on above: Order Comment: Speci men Type: BLOOD SPECIMENOrdering Facility: [facility] Address: [address] [place] [address] Performed By: #### 2 4321-2, , 2776-02 ####[facility]ORATORYCLIA [id number] [place] [id number] [place] Chloride [Moles/Vol] 108 mmol/L High 97-105 [facility] Comment on above: Order Comment: Speci men Type: BLOOD SPECIMENOrdering Facility: [facility] Address: [address] [place] [address] Performed By: #### 2 4321-2, , 2776-02 ####[facility] LABORATORYCLIA [id number] [place] [address] [place] CO2 [Moles/Vol] 22 mmol/L Normal 22-30 [facility] Comment on above: Order Comment: Speci men Type: BLOOD SPECIMENOrdering Facility: [facility] Address: [address] [place] [address] Performed By: #### 2 4321-2, , 2776-02 ####[facility] LABORATORYCLIA [id number] [place] [address] [place] Creatinine [Mass/Vol] 0.76 mg/dL Normal 0.58-0.96 [facility] Comment on above: Order Comment: Geraldo marrero Type: BLOOD SPECIMENOrdering Facility: [facility] Address: [address] [place] [address] Performed By: #### 2 4321-2, 68712-7, 2776-02 ####[facility] LABORATORYCLIA [id number] [place] [id number] [place] [facility] Creatinine and Glomerular filtration rate.predicted panel (S/P/Bld) 106 mL/min/1.73m??? Normal >=60 [facility] Comment on above: Order Comment: Geraldo marrero Type: BLOOD SPECIMENOrdering Facility: [facility] Address: [address] [place] [address] Result Comment: Jessica mated Glomerular Filtration Rate [...] Performed By: #### 2 4321-2, , 2776-02 ####[facility]ORATORYCLIA [id number] [place] [id number] [place] Glucose [Mass/Vol] 80 mg/dL Normal 74-99 [facility] Comment on above: Order Comment: Geraldo marrero Type: BLOOD SPECIMENOrdering Facility: [facility] Address: [address] [place] [address] Result Comment: The [place] Diabetes [employer] (ADA) provides guidance for cutoff [...] Standards of Medical Care in Diabetes 2016, [place] [employer]. Diabetes Care. 2016.39(Suppl 1). Performed By: #### 2 4321-2, , 2776-02 ####[facility] LABORATORYCLIA [id number] [place] [address] [place] Potassium [Moles/Vol] 4.1 mmol/L Normal 3.7-5.1 [facility] Comment on above: Order Comment: Speci men Type: BLOOD SPECIMENOrdering Facility: [facility] Address: [address] [place] [address] Performed By: #### 2 4321-2, , 2776-02 ####[facility] LABORATORYCLIA [id number] [place] [id number] [place] Sodium [Moles/Vol] 139 mmol/L Normal 136-144 [facility] Comment on above: Order Comment: Speci elida Type: BLOOD SPECIMENOrdering Facility: [facility] Address: [address] [place] [address] Performed By: #### 2 4321-2, , 2776-02 ####[facility]ORATORYCLIA [id number] [place] [id number] [place] Urea nitrogen [Mass/Vol] 7 mg/dL Normal 7-21 [facility] Comment on above: Order Comment: Speci men Type: BLOOD SPECIMENOrdering Facility: [facility] Address: [address] [place] [address] Performed By: #### 2 4321-2, , 2776-02 ####[facility]ORATORYCLIA [id number] [place] [id number] [place] CBC W Auto Differential pane l (Bld)on 07-18-2023 Basophils (Bld) [#/Vol] 0.06 10*3/uL Normal <0.11 [facility] Comment on above: Order Comment: Speci men Type: BLOOD SPECIMENOrdering Facility: [facility] Address: [address] [place] [address] Performed By: #### 5 7021-8 ####[facility] LABORATORYCLIA [id number] [place] [address] [place] Basophils/100 WBC (Bld) 1.6 % Normal [facility] Comment on above: Order Comment: Speci men Type: BLOOD SPECIMENOrdering Facility: [facility] Address: [address] [place] [address] Performed By: #### 5 7021-8 ####[facility] LABORATORYCLIA [id number] [place] [address] [place] Differential cell count method Nom (Bld) Auto Normal [facility] Comment on above: Order Comment: Speci men Type: BLOOD SPECIMENOrdering Facility: [facility] Address: [address] [place] [address] Performed By: #### 5 7021-8 ####[facility] LABORATORYCLIA [id number] [place] [address] [place] Eosinophils (Bld) [#/Vol] 0.33 10*3/uL Normal <0.46 [facility] Comment on above: Order Comment: Speci men Type: BLOOD SPECIMENOrdering Facility: [facility] Address: [address] [place] [address] Performed By: #### 5 7021-8 ####[facility] LABORATORYCLIA [id number] [address] [place] Eosinophils/100 WBC (Bld) 8.8 % Normal [facility] Comment on above: Order Comment: Speci men Type: BLOOD SPECIMENOrdering Facility: [facility] Address: [address] [place] [address] Performed By: #### 5 7021-8 ####[facility] LABORATORYCLIA [id number] [place] [address] [place] Erythrocyte distribution width (RBC) [Ratio] 12.9 % Normal 11.5-15.0 [facility] Comment on above: Order Comment: Speci men Type: BLOOD SPECIMENOrdering Facility: [facility] Address: [address] [place] [address] Performed By: #### 5 7021-8 ####[facility] LABORATORYCLIA [id number] [place] [id number] [place] Hematocrit (Bld) [Volume fraction] 31.1 % Low 36.0-46.0 [facility] Comment on above: Order Comment: Speci men Type: BLOOD SPECIMENOrdering Facility: [facility] Address: [address] [place] [address] Performed By: #### 5 7021-8 ####[facility] LABORATORYCLIA [id number] [place] [address] [place] Hemoglobin (Bld) [Mass/Vol] 10.2 g/dL Low 11.5-15.5 [facility] Comment on above: Order Comment: Speci men Type: BLOOD SPECIMENOrdering Facility: [facility] Address: [address] [place] [address] Performed By: #### 5 7021-8 ####[facility] LABORATORYCLIA [id number] [place] [address] [place] Immature granulocytes (Bld) [#/Vol] 10*3/uL Normal <0.10 [facility] Comment on above: Order Comment: Speci men Type: BLOOD SPECIMENOrdering Facility: [facility] Address: [address] [place] [address] Performed By: #### 5 7021-8 ####[facility] LABORATORYCLIA [id number] [address] [place] Immature granulocytes/100 WBC (Bld) 0.0 % Normal [facility] Comment on above: Order Comment: Speci men Type: BLOOD SPECIMENOrdering Facility: [facility] Address: [address] [place] [address] Performed By: #### 5 7021-8 ####[facility] LABORATORYCLIA [id number] [place] [address] [place] Lymphocytes (Bld) [#/Vol] 1.40 10*3/uL Normal 1.00-4.00 [facility] Comment on above: Order Comment: Speci men Type: BLOOD SPECIMENOrdering Facility: [facility] Address: [address] [place] [address] Performed By: #### 5 7021-8 ####[facility] LABORATORYCLIA [id number] [place] [address] [place] Lymphocytes/100 WBC (Bld) 37.2 % Normal [facility] Comment on above: Order Comment: Speci men Type: BLOOD SPECIMENOrdering Facility: [facility] Address: [address] [place] [address] Performed By: #### 5 7021-8 ####[facility] LABORATORYCLIA [id number] [place] [address] [place] MCH (RBC) [Entitic mass] 30.4 pg Normal 26.0-34.0 [facility] Comment on above: Order Comment: Speci men Type: BLOOD SPECIMENOrdering Facility: [facility] Address: [address] [place] [address] Performed By: #### 5 7021-8 ####[facility] LABORATORYCLIA [id number] [address] [place] MCHC (RBC) [Mass/Vol] 32.8 g/dL Normal 30.5-36.0 [facility] Comment on above: Order Comment: Speci men Type: BLOOD SPECIMENOrdering Facility: [facility] Address: [address] [place] [address] Performed By: #### 5 7021-8 ####[facility] LABORATORYCLIA [id number] [place] [id number] [place] MCV (RBC) [Entitic vol] 92.6 fL Normal 80.0-100.0 [facility] Comment on above: Order Comment: Speci men Type: BLOOD SPECIMENOrdering Facility: [facility] Address: [address] [place] [address] Performed By: #### 5 7021-8 ####[facility] LABORATORYCLIA [id number] [address] [place] Monocytes (Bld) [#/Vol] 0.42 10*3/uL Normal <0.87 [facility] Comment on above: Order Comment: Speci men Type: BLOOD SPECIMENOrdering Facility: [facility] Address: [address] [place] [address] Performed By: #### 5 7021-8 ####[facility] LABORATORYCLIA [id number] [place] [id number] [place] Monocytes/100 WBC (Bld) 11.2 % Normal [facility] Comment on above: Order Comment: Speci men Type: BLOOD SPECIMENOrdering Facility: [facility] Address: [address] [place] [address] Performed By: #### 5 7021-8 ####[facility] LABORATORYCLIA [id number] [place] [id number] [place] Neutrophils (Bld) [#/Vol] 1.55 10*3/uL Normal 1.45-7.50 [facility] Comment on above: Order Comment: Speci men Type: BLOOD SPECIMENOrdering Facility: [facility] Address: [address] [place] [address] Performed By: #### 5 7021-8 ####[facility] LABORATORYCLIA [id number] [place] [id number] [place] Neutrophils/100 WBC (Bld) 41.2 % Normal [facility] Comment on above: Order Comment: Speci men Type: BLOOD SPECIMENOrdering Facility: [facility] Address: [address] [place] [address] Performed By: #### 5 7021-8 ####[facility] LABORATORYCLIA [id number] [place] [id number] [place] Nucleated RBC (Bld) [#/Vol] 10*3/uL Normal <0.01 [facility] Comment on above: Order Comment: Speci men Type: BLOOD SPECIMENOrdering Facility: [facility] Address: [address] [place] [address] Performed By: #### 5 7021-8 ####[facility] LABORATORYCLIA [id number] [place] [id number] [place] Nucleated RBC/100 WBC (Bld) [Ratio] 0.0 /100 WBC Normal [facility] Comment on above: Order Comment: Speci men Type: BLOOD SPECIMENOrdering Facility: [facility] Address: [address] [place] [address] Performed By: #### 5 7021-8 ####[facility] LABORATORYCLIA [id number] [place] [id number] [place] Platelet mean volume (Bld) [Entitic vol] 11.0 fL Normal 9.0-12.7 [facility] Comment on above: Order Comment: Speci men Type: BLOOD SPECIMENOrdering Facility: [facility] Address: [address] [place] [address] Performed By: #### 5 7021-8 ####[facility] LABORATORYCLIA [id number] [place] [address] [place] Platelets (Bld) [#/Vol] 212 10*3/uL Normal 150-400 [facility] Comment on above: Order Comment: Speci men Type: BLOOD SPECIMENOrdering Facility: [facility] Address: [address] [place] [address] Performed By: #### 5 7021-8 ####[facility] LABORATORYCLIA [id number] [place] [id number] [place] RBC (Bld) [#/Vol] 3.36 10*6/uL Low 3.90-5.20 [facility] Comment on above: Order Comment: Speci men Type: BLOOD SPECIMENOrdering Facility: [facility] Address: [address] [place] [address] Performed By: #### 5 7021-8 ####[facility] LABORATORYCLIA [id number] [place] [id number] [place] WBC (Bld) [#/Vol] 3.76 10*3/uL Normal 3.70-11.00 [facility] Comment on above: Order Comment: Speci men Type: BLOOD SPECIMENOrdering Facility: [facility] Address: [address] [place] [address] Performed By: #### 5 7021-8 ####[facility] LABORATORYCLIA [id number] [place] [address] [place] Magnesium SerPl-mCncon 07-17 Magnesium [Mass/Vol] 1.9 mg/dL Normal 1.7-2.3 [facility] Comment on above: Order Comment: Speci men Type: BLOOD SPECIMENOrdering Facility: [facility] Address: [address] [place] [address] Performed By: #### 2 4321-2, , 2776-02 ####[facility] LABORATORYCLIA [id number] [place] [id number] [place] Phosphate SerPl-mCncon 07-17 Phosphate [Mass/Vol] 4.7 mg/dL Normal 2.7-4.8 [facility] Comment on above: Order Comment: Speci men Type: BLOOD SPECIMENOrdering Facility: [facility] Address: [address] [place] [address] Performed By: #### 2 4321-2, , 2776-02 ####[facility] LABORATORYCLIA [id number] [place] [id number] [place] XR CHEST 1V FRONTAL PORTon 0 07-18-2023 XR CHEST 1V FRONTAL PORT Normal [facility] XR SMALL BOWEL SERIESon XR SMALL BOWEL SERIES Normal [facility] Capillary blood glucose brie urement by glucometer (mass/volume)Ordered By: Camden Rodriguez on 07-17-2023 Glucose [Mass/Vol] 86 mg/dL Normal [facility] Comment on above: Random Glucose Refer ence Range is dependent on time and content of last meal. Glucose of more than 200 mg/dL in a nonstressed, ambulatory subject supports the diagnosis of Diabetes Mellitus. Result Comment: [place] Glucose Reference Range is dependent on time and content of last meal. Glucose of more than 200 mg/dL in a nonstressed, ambulatory subject supports the diagnosis of Diabetes Mellitus. PERFORMED BY: [facility] [address] [place] [address] PATHOLOGIST CAKE DECORATOR BAUTISTA BAKER M.D. Performed By: #### G LULS #### Point of Care testing , Glucose Poct Glucometerson 0 07-17-2023 Commemt1 Glu2: Cleaned Meter Normal [facility] Comment on above: Result Comment: PERF ORMED BY: [place] [address] PATHOLOGIST CAKE DECORATOR BAUTISTA BAKER M.D. Performed By: #### H EPATIC, MG, LIPASE, CMP, CBC #### [address] Glucose [Mass/Vol] 90 mg/dL Normal [facility] Comment on above: Result Comment: [facility] Glucose Reference Range is dependent on time and content of last meal. Glucose of more than 200 mg/dL in a nonstressed, ambulatory subject supports the diagnosis of Diabetes Mellitus. Performed By: #### H EPATIC, MG, LIPASE, CMP, CBC #### [address] HISTORY PHYSICALon HISTORY PHYSICAL Normal [facility] NURSING PROGon 07-17-2023 NURSING PROG Normal [facility] No Panel InformationOrdered By: Camden Rodriguez on 07-17-2023 Bedside Glucose Comment Glu2: cleaned meter [facility] Alanine aminotransferase [En zymatic activity/volume] in Serum or PlasmaOrdered By: Shaan Sabillon on 07-16-2023 ALT [Catalytic activity/Vol] 39 U/L Normal 7-52 [facility] Comment on above: Performed By: #### A CORY, CG, CUU #### [address] Albumin [Mass/volume] in Ser um or Plasma by Bromocresol green (BCG) dye binding methoOrdered By: Shaan Sabillon on 07-16-2023 Albumin BCG dye [Mass/Vol] 4.3 g/dL 3.5-5.7 [facility] Alkaline phosphatase [Enzyma tic activity/volume] in Serum or PlasmaOrdered By: Shaan Sabillon on 07-16-2023 ALP [Catalytic activity/Vol] 57 U/L Normal 34-104 [facility] Comment on above: Performed By: #### A JOSESITO RAY, CUU #### [address] Aspartate aminotransferase [ Enzymatic activity/volume] in Serum or PlasmaOrdered By: Shaan Sabillon on 07-16-2023 AST [Catalytic activity/Vol] 43 U/L High 13-39 [facility] Comment on above: Performed By: #### A JOSESITO RAY, CUU #### [address] Automated basophil %Ordered By: Shaan Sabillon on 07-16-2023 Basophils/100 WBC (Bld) 0.7 % Normal . [facility] Comment on above: Performed By: #### A JOSESITO RAY, CUU #### [address] Automated basophil countOrde red By: Shaan Sabillon on 07-16-2023 Basophils (Bld) [#/Vol] 0.0 10*3/uL Normal 0.0-0.2 [facility] Comment on above: Result Comment: PERF ORMED BY: [place] [address] PATHOLOGIST CAKE DECORATOR BAUTISTA BAKER M.D. Performed By: #### A JOSESITO RAY, CUU #### [address] Automated blood monocyte cou ntOrdered By: Shaan Sabillon on 07-16-2023 Monocytes (Bld) [#/Vol] 0.3 10*3/uL Normal 0.0-0.8 [facility] Comment on above: Performed By: #### A JOSESITO RAY, CUU #### [address] Automated eosinophil %Ordere d By: Shaan Sabillon on 07-16-2023 Eosinophils/100 WBC (Bld) 0.5 % Normal . [facility] Comment on above: Performed By: #### A JOSESITO RAY, CUU #### [address] Automated eosinophil countOr dered By: Shaan Sabillon on 07-16-2023 Eosinophils (Bld) [#/Vol] 0.0 10*3/uL Normal 0.0-0.45 [facility] Comment on above: Performed By: #### A DDFLORECITA, BRITTANIECG, CUU #### [address] Automated monocyte %Ordered By: Shaan Sabillon on 07-16-2023 Monocytes/100 WBC (Bld) 4.5 % Normal . [facility] Comment on above: Performed By: #### A JOSESITO RAY, CUU #### [address] Automated neutrophil %Ordere d By: Shaan Sabillon on 07-16-2023 Neutrophils/100 WBC (Bld) 75.6 % Normal . [facility] Comment on above: Performed By: #### A DDFLORECITA, ALIYAHG, CUU #### [address] Basic Metabolic Panelon 06-17 Creatinine Clr Calc Pharmacy 117.42 Normal [facility] Comment on above: Performed By: #### A DDONDAVON, BRITTANIECG, CUU #### [address] GFR/1.73 sq M.predicted MDRD (S/P/Bld) [Vol rate/Area] mL/min/{1.73_m2} Normal [facility] Comment on above: Performed By: #### A DDONUAJESSICA, BRITTANIECG, CUU #### [address] Bilirubin Test strip Ql (U)O rdered By: Shaan Sabillon on 07-16-2023 Bilirubin Ql (U) Negative Negative [facility] Bilirubin.direct [Mass/volum e] in Serum or PlasmaOrdered By: Shaan Sabillon on 07-16-2023 Bilirubin.direct [Mass/Vol] 0.10 mg/dL 0.03-0.18 [facility] Bilirubin.total [Mass/volume ] in Serum or PlasmaOrdered By: Shaan Sabillon on 07-16-2023 Bilirubin [Mass/Vol] 0.6 mg/dL Normal 0.3-1.0 [facility] Comment on above: Performed By: #### A DDONUAPLUS, UHCG, CUU #### [facility] [address] abdomen pelvis w conon CT abdomen pelvis w con [facility] [address] [place] [address] [place] [address] CT Scan Report Signed Patient: Abbey Garcia MR#: [id number] : 1990 Acct:[id number] Age/Sex: 33 / F ADM Date: 07/16/23 Loc: ER Room: Type: [facility] ER Attending Dr: Copies to: Shaan Sabillon [...] Medel Jr., D.O.07/16/2023 4:09 PM Dictation Location: [place] [address] Transcribed By: [facility] 07/16/23 1609 Dictated By: Cornel Medel Jr, DO 07/16/23 1606 Signed By: 07/16/23 1609 Normal [facility] Calcium [Mass/volume] in Ser um or PlasmaOrdered By: Shaan Sabillon on 07-16-2023 Calcium [Mass/Vol] 8.9 mg/dL Normal 8.6-10.3 [facility] Comment on above: Performed By: #### A DDONUAPLUS, UHCG, CUU #### [place] [address] [place] Carbon dioxide, total [Moles /volume] in Serum or PlasmaOrdered By: Shaan Sabillon on 07-16-2023 CO2 [Moles/Vol] 24.2 mmol/L Normal 21.0-31.0 [facility] Comment on above: Performed By: #### A DDONUAPLUS, UHCG, CUU #### [facility] [address] [place] [address] [place] Chloride [Moles/volume] in S elder or PlasmaOrdered By: Shaan Sabillon on 07-16-2023 Chloride [Moles/Vol] 107 mmol/L Normal 98-107 [facility] Comment on above: Performed By: #### A DDONUAPLUS, UHCG, CUU #### [facility] [address] [place] [address] [place] Color of Urine by AutoOrdere d By: Shaan Sabillon on 07-16-2023 Color (U) Yellow Normal Yellow [facility] Comment on above: Order Comment: Name Collection Type:: Clean-Voided Midstream Performed By: #### A DDONUAPLUS, UHCG, CUU #### [facility] [address] [place] [address] [place] Complete Blood Count Auto Di ffon 07-16-2023 Mean Corpuscular HGB Conc 34.2 g/dL Normal 32.0-35.0 [facility] Comment on above: Performed By: #### A ALIYAH RAYG, CUU #### [address] Monocytes/100 WBC (Bld) 16.79 % Normal 0.00-20.00 [facility] Comment on above: Performed By: #### A CORY, BRITTANIECG, CUU #### [address] NRBC% 0.0 /100{WBC} Normal 0-0.5 [facility] Comment on above: Performed By: #### A CORY, BRITTANIECG, CUU #### [address] Creatinine [Mass/volume] in Serum or PlasmaOrdered By: Shaan Sabillon on 07-16-2023 Creatinine [Mass/Vol] 0.72 mg/dL Normal 0.60-1.20 [facility] Comment on above: Performed By: #### A JOSESITO RAY, CUU #### [address] Erythrocyte distribution wid th [Ratio] by Automated countOrdered By: Shaan Sabillon on 07-16-2023 Erythrocyte distribution width (RBC) [Ratio] 14.4 % Normal 11.9-15.3 [facility] Comment on above: Performed By: #### A CORY, BRITTANIECG, CUU #### [address] Erythrocytes [#/volume] in B lood by Automated countOrdered By: Shaan Sabillon on 07-16-2023 RBC (Bld) [#/Vol] 3.67 10*6/uL Normal 3.60-5.00 [facility] Comment on above: Performed By: #### A BRITTANIE RAYCG, CUU #### [address] [place] [address] [place] Glucose [Mass/volume] in Ser um or PlasmaOrdered By: Shaan Sabillon on 07-16-2023 Glucose [Mass/Vol] 82 mg/dL Normal 70-100 [facility] Comment on above: ADA recommended refe rence rangeRandom Glucose Reference Range is dependent on time and content of last meal. Glucose of more than 200 mg/dL in a nonstressed, ambulatory subject supports the diagnosis of Diabetes Mellitus. Result Comment: [place] Glucose Reference Range is dependent on time and content of last meal. Glucose of more than 200 mg/dL in a nonstressed, ambulatory subject supports the diagnosis of Diabetes Mellitus. ADA recommended reference range Performed By: #### A JOSESITO RAY, CUU #### [address] HCG ( test) IA.rapi d Ql (U)Ordered By: Shaan Sabillon on 07-16-2023 HCG ( test) Ql (U) Negative [facility] HCG,Urineon 07-16-2023 Beta HCG ( test) Ql (U) Negative Normal [facility] Comment on above: Order Comment: Name Collection Type:: Clean-Voided Midstream Result Comment: PERF ORMED BY: [place] [address] PATHOLOGIST CAKE DECORATOR BAUTISTA BAKER M.D. Performed By: #### A JOSESITO RAY, CUU #### [address] Hematocrit [Volume Fraction] of Blood by Automated countOrdered By: Shaan Sabillon on 07-16-2023 Hematocrit (Bld) [Volume fraction] 32.8 % Low 34.0-46.4 [facility] Comment on above: Performed By: #### A JOSESITO RAY, CUU #### [address] Hemoglobin [Mass/volume] in BloodOrdered By: Shaan Sabillon on 07-16-2023 Hemoglobin (Bld) [Mass/Vol] 11.2 g/dL Low 11.8-15.4 [facility] Comment on above: Performed By: #### A DDONUABRITTANIE LOPEZCG, CUU #### [address] Hepatic Panelon 07-16-2023 Albumin [Mass/Vol] 4.3 g/dL Normal 3.5-5.7 [facility] Comment on above: Performed By: #### A DDONUAJESSICA UHCG, CUU #### [address] Bilirubin,Indirect 0.5 mg/dL Normal [facility] Comment on above: Performed By: #### A DDONUAPLUS UHCG, CUU #### [address] Bilirubin.indirect [Mass/Vol] 0.10 mg/dL Normal 0.03-0.18 [facility] Comment on above: Performed By: #### A DDONBRITTANIE MAYSCG, CUU #### [address] Ketones Auto test strip (U) [Mass/Vol]Ordered By: Shaan Sabillon on 07-16-2023 Ketones (U) [Mass/Vol] Negative Negative [facility] Leukocytes [#/volume] correc darvin for nucleated erythrocytes in Blood by Automated counOrdered By: Shaan Sabillon on 07-16-2023 WBC corrected for nucl RBC Auto (Bld) [#/Vol] 6.9 10*3/uL 3.8-11.6 [facility] Leukocytes [#/volume] in Blo od by Automated countOrdered By: Shaan Sabillon on 07-16-2023 WBC (Bld) [#/Vol] 6.9 10*3/uL Normal 3.8-11.6 [facility] Comment on above: Performed By: #### A DDONUAPLUS, UHCG, CUU #### [address] Lipase [Enzymatic activity/v olume] in Serum or PlasmaOrdered By: Shaan Sabillon on 07-16-2023 Lipase [Catalytic activity/Vol] 45.0 U/L Normal 11.0-82.0 [facility] Comment on above: Result Comment: PERF ORMED BY: [place] [address] PATHOLOGIST CAKE DECORATOR BAUTISTA BAKER M.D. Performed By: #### A DDFLORECITA, ElroyG, CUU #### [address] Lymphocytes [#/volume] in Bl ood by Automated countOrdered By: Shaan Sabillon on 07-16-2023 Lymphocytes (Bld) [#/Vol] 1.3 10*3/uL Normal 1.00-4.8 [facility] Comment on above: Performed By: #### A DDFLORECITA, ELIS, CUU #### [address] Lymphocytes/100 leukocytes i n Blood by Automated countOrdered By: Shaan Sabillon on 07-16-2023 Lymphocytes/100 WBC (Bld) 18.7 % Normal . [facility] Comment on above: Performed By: #### A CORY, [facility] HOSPITALJarrod, CUU #### [address] MCH [Entitic mass] by Automa darvin countOrdered By: Shaan Sabillon on 07-16-2023 MCH (RBC) [Entitic mass] 30.5 pg Normal 24.7-34.3 [facility] Comment on above: Performed By: #### A DDFLORECITA, [facility], CUU #### [address] MCHC Auto (RBC) [Mass/Vol]Or dered By: Shaan Sabillon on 07-16-2023 MCHC (RBC) [Mass/Vol] 34.2 g/dL 32.0-35.0 [facility] MCV [Entitic volume] by Auto mated countOrdered By: Shaan Sabillon on 07-16-2023 MCV (RBC) [Entitic vol] 89.2 fL Normal 80-100 [facility] Comment on above: Performed By: #### A JOSESITO RAY, CUU #### [facility] [address] Monocyte distribution width [Entitic volume] in Blood by AutomatedOrdered By: Shaan Sabillon on 07-16-2023 Monocyte distribution width Auto (Bld) [Entitic vol] 16.79 % 0.00-20.00 [facility] Neutrophils [#/volume] in Bl ood by Automated countOrdered By: Shaan Sabillon on 07-16-2023 Neutrophils (Bld) [#/Vol] 5.2 10*3/uL Normal 1.8-7.7 [facility] Comment on above: Performed By: #### A JOSESITO RAY, CUU #### [facility] [address] Nitrite Test strip Ql (U)Ord ered By: Shaan Sabillon on 07-16-2023 Nitrite Ql (U) Negative Negative [facility] No Panel InformationOrdered By: Shaan Sabillon on 07-16-2023 Estimated GFR (CKD-EPI) > 60.0 mL/Min [facility] Creatinine Clearance (Chem 117.42 [facility] Nucleated erythrocytes [Pres ence] in Blood by Automated countOrdered By: Shaan Sabillon on 07-16-2023 Nucleated RBC Auto Ql (Bld) 0.0 /100{WBC} 0-0.5 [facility] Platelet mean volume [Entiti c volume] in Blood by Automated countOrdered By: Shaan Sabillon on 07-16-2023 Platelet mean volume (Bld) [Entitic vol] 9.0 fL Normal 6.3-10.7 [facility] Comment on above: Performed By: #### A JOSESITO RAY, CUU #### [facility] [address] [place] [address] [place] Platelets [#/volume] in Bloo d by Automated countOrdered By: Shaan Sabillon on 07-16-2023 Platelets (Bld) [#/Vol] 282 10*3/uL Normal 150-450 [facility] Comment on above: Performed By: #### A JOSESITO RAY, CUU #### [address] Potassium [Moles/volume] in Serum or PlasmaOrdered By: Shaan Sabillon on 07-16-2023 Potassium [Moles/Vol] 3.7 mmol/L Normal 3.5-5.1 [facility] Comment on above: Performed By: #### A JOSESITO RAY, CUU #### [address] Protein Auto test strip (U) [Mass/Vol]Ordered By: Shaan Sabillon on 07-16-2023 Protein (U) [Mass/Vol] Negative Negative [facility] Protein [Mass/volume] in Ser um or PlasmaOrdered By: Shaan Sabillon on 07-16-2023 Protein [Mass/Vol] 6.8 g/dL Normal 6.4-8.9 [facility] Comment on above: Performed By: #### A JOSESITO RAY, CUU #### [address] Serum globulin measurement b y calculation (mass/volume)Ordered By: Shaan Sabillon on 07-16-2023 Globulin (S) [Mass/Vol] 2.5 g/dL Normal [facility] Comment on above: Performed By: #### A JOSESITO RAY, CUU #### [address] Serum or plasma albumin/glob ulin mass ratioOrdered By: Shaan Sabillon on 07-16-2023 Albumin/Globulin [Mass ratio] 1.7 {ratio} [facility] Comment on above: Performed By: #### A JOSESITO RAY, CUU #### [address] Serum or plasma anion gap de terminationOrdered By: Shaan Sabillon on 07-16-2023 Anion gap [Moles/Vol] 9.5 mmol/L Normal 6.0-15.0 [facility] Comment on above: Performed By: #### A TAEPLUS, UHCG, CUU #### [address] Serum or plasma non-glucuron idated bilirubin measurement (mass/volume)Ordered By: Shaan Sabillon on 07-16-2023 Bilirubin.indirect [Mass/Vol] 0.5 mg/dL [facility] Sodium [Moles/volume] in Ser um or PlasmaOrdered By: Shaan Sabillon on 07-16-2023 Sodium [Moles/Vol] 137 mmol/L Normal 136-145 [facility] Comment on above: Performed By: #### A DDONUAPLUS, UHCG, CUU #### [address] Specific gravity Auto test s trip (U) [Rel density]Ordered By: Shaan Sabillon on 07-16-2023 Specific gravity (U) [Rel density] 1.006 1.001-1.030 [facility] Urea nitrogen [Mass/volume] in Serum or PlasmaOrdered By: Shaan Sabillon on 07-16-2023 Urea nitrogen [Mass/Vol] 14 mg/dL Normal 7-25 [facility] Comment on above: Performed By: #### A DDONUAPLUS, UHCG, CUU #### [address] Urinalysison 07-16-2023 Appearance (U) Clear Normal Clear [facility] Comment on above: Order Comment: Name Collection Type:: Clean-Voided Midstream Performed By: #### A DDONUAPLUS, UHCG, CUU #### [address] Bilirubin,Urine Negative Normal Negative [facility] Comment on above: Order Comment: Name Collection Type:: Clean-Voided Midstream Performed By: #### A DDONUAPLUS, UHCG, CUU #### [address] Glucose Ql (U) Normal Normal Normal [facility] Comment on above: Order Comment: Name Collection Type:: Clean-Voided Midstream Performed By: #### A DDONUAPLUS, UHCG, CUU #### [place] [address] [place] Ketones Ql (U) Negative Normal Negative [facility] Comment on above: Order Comment: Name Collection Type:: Clean-Voided Midstream Performed By: #### A DDONUAPLUS, UHCG, CUU #### [place] [address] [place] Leukocyte esterase Test strip Ql (U) Negative Normal Negative [facility] Comment on above: Order Comment: Name Collection Type:: Clean-Voided Midstream Performed By: #### A DDONUAPLUS, UHCG, CUU #### [place] [address] [place] Nitrite,Urine Negative Normal Negative [facility] Comment on above: Order Comment: Name Collection Type:: Clean-Voided Midstream Performed By: #### A DDONUAPLUS, UHCG, CUU #### [place] [address] [place] Occult Blood,Urine Negative Normal Negative [facility] Comment on above: Order Comment: Name Collection Type:: Clean-Voided Midstream Performed By: #### A DDONUAPLUS, UHCG, CUU #### [place] [address] [place] Protein,Urine Negative Normal Negative [facility] Comment on above: Order Comment: Name Collection Type:: Clean-Voided Midstream Performed By: #### A DDONUAPLUS, UHCG, CUU #### [place] [address] [place] Specificy [place],Urine 1.006 Normal 1.001-1.030 [facility] Comment on above: Order Comment: Name Collection Type:: Clean-Voided Midstream Performed By: #### A DDONUAPLUS, UHCG, CUU #### [place] [address] [place] Urobilinogen,Urine Normal Normal Normal [facility] Comment on above: Order Comment: Name Collection Type:: Clean-Voided Midstream Performed By: #### A DDONUAPLUS, UHCG, CUU #### [facility] [address] Urine clarity by refractomet ry automatedOrdered By: Shaan Sabillon on 07-16-2023 Clarity Refractometry automated (U) Clear Clear [facility] Urine glucose measurement by automated test strip (mass/volume)Ordered By: Shaan Sabillon on 07-16-2023 Glucose Auto test strip (U) [Mass/Vol] Normal mg/dL Normal [facility] Urine hemoglobin detection b y automated test stripOrdered By: Shaan Sabillon on 07-16-2023 Hemoglobin Auto test strip Ql (U) Negative Negative [facility] Urine leukocyte esterase det ection by automated test stripOrdered By: Shaan Sabillon on 07-16-2023 Leukocyte esterase Auto test strip Ql (U) Negative Negative [facility] Urine pH measurement by auto mated test stripOrdered By: Shaan Sabillon on 07-16-2023 pH (U) 7.5 [pH] Normal 5.0-9.0 [facility] Comment on above: Order Comment: Name Collection Type:: Clean-Voided Midstream Performed By: #### A DDFAIZAUAPLUS, BRITTANIECG, CUU #### [facility] [address] [place] [address] Urobilinogen Auto test strip (U) [Mass/Vol]Ordered By: Shaan Sabillon on 07-16-2023 Urobilinogen (U) [Mass/Vol] Normal mg/dL Normal [facility] CNPNon 07-13-2023 CNPN Normal [facility] Basic metabolic 2000 panelon 07-06-2023 Anion gap [Moles/Vol] 11 mmol/L Normal 9-18 [facility] Comment on above: Order Comment: Speci men Type: BLOOD SPECIMENOrdering Facility: [facility] Address: [address] [place] [address] Performed By: #### 2 4321-2 ####[facility] LABCLIA [id number] [facility] [id number] [address] [place] Calcium [Mass/Vol] 8.7 mg/dL Normal 8.5-10.2 [facility] Comment on above: Order Comment: Speci men Type: BLOOD SPECIMENOrdering Facility: [facility] Address: [address] [place] [address] Performed By: #### 2 4321-2 ####[facility]CL[facility] [id number] [place] [address] [place] Chloride [Moles/Vol] 110 mmol/L High 97-105 [facility] Comment on above: Order Comment: Speci men Type: BLOOD SPECIMENOrdering Facility: [facility] Address: [address] [place] [address] Performed By: #### 2 4321-2 ####[facility]CL[facility] [id number] [place] [address] [place] CO2 [Moles/Vol] 20 mmol/L Low 22-30 [facility] Comment on above: Order Comment: Speci men Type: BLOOD SPECIMENOrdering Facility: [facility] Address: [address] [place] [address] Performed By: #### 2 4321-2 ####[facility]CL[facility] [id number] [place] [address] [place] Creatinine [Mass/Vol] 0.64 mg/dL Normal 0.58-0.96 [facility] Comment on above: Order Comment: Speci men Type: BLOOD SPECIMENOrdering Facility: [facility] Address: [address] [place] [address] Performed By: #### 2 4321-2 ####[facility]CL[facility] [id number] [place] [address] [place] Creatinine and Glomerular filtration rate.predicted panel (S/P/Bld) 119 mL/min/1.73m??? Normal >=60 [facility] Comment on above: Order Comment: Speci men Type: BLOOD SPECIMENOrdering Facility: [facility] Address: [address] [place] [address] Result Comment: Jessica mated Glomerular Filtration Rate [...] actual GFR. Performed By: #### 2 4321-2 ####[facility]CL[facility] [id number] [place] [address] [place] Glucose [Mass/Vol] 89 mg/dL Normal 74-99 [facility] Comment on above: Order Comment: Geraldo marrero Type: BLOOD SPECIMENOrdering Facility: [facility] Address: [address] [place] [address] Result Comment: The [place] Diabetes Association (ADA) provides guidance for cutoff [...] Standards of Medical Care in Diabetes 2016, [place] [employer]. Diabetes Care. 2016.39(Suppl 1). Performed By: #### 2 4321-2 ####[facility]CL[facility] [id number] [place] [address] [place] Potassium [Moles/Vol] 3.9 mmol/L Normal 3.7-5.1 [facility] Comment on above: Order Comment: Geraldo marrero Type: BLOOD SPECIMENOrdering Facility: [facility] Address: [address] [place] [address] Performed By: #### 2 4321-2 ####[facility]CL[facility] [id number] [place] [address] [place] Sodium [Moles/Vol] 141 mmol/L Normal 136-144 [facility] Comment on above: Order Comment: Speci men Type: BLOOD SPECIMENOrdering Facility: [facility] Address: [address] [place] [address] Performed By: #### 2 4321-2 ####[facility]CL[facility] [id number] [place] [address] [place] Urea nitrogen [Mass/Vol] 14 mg/dL Normal 7-21 [facility] Comment on above: Order Comment: Speci men Type: BLOOD SPECIMENOrdering Facility: [facility] Address: [address] [place] [address] Performed By: #### 2 4321-2 ####[facility] LABIA [id number] [place] [address] [place] CBC W Auto Differential pane l (Bld)on 07-06-2023 Basophils (Bld) [#/Vol] 10*3/uL Normal <0.11 [facility] Comment on above: Order Comment: Speci men Type: BLOOD SPECIMENOrdering Facility: [facility] Address: [address] [place] [address] Performed By: #### 5 7021-8 ####[facility]CL[facility] [id number] [place] [address] [place] Basophils/100 WBC (Bld) 0.5 % Normal [facility] Comment on above: Order Comment: Speci men Type: BLOOD SPECIMENOrdering Facility: [facility] Address: [address] [place] [address] Performed By: #### 5 7021-8 ####[facility]CL[facility] [id number] [place] [address] [place] Differential cell count method Nom (Bld) Auto Normal [facility] Comment on above: Order Comment: Speci men Type: BLOOD SPECIMENOrdering Facility: [facility] Address: [address] [place] [address] Performed By: #### 5 7021-8 ####[facility]CL[facility] [id number] [place] [address] [place] Eosinophils (Bld) [#/Vol] 10*3/uL Normal <0.46 [facility] Comment on above: Order Comment: Speci men Type: BLOOD SPECIMENOrdering Facility: [facility] Address: [address] [place] [address] Performed By: #### 5 7021-8 ####[facility]CL[facility] [id number] [place] [address] [place] Eosinophils/100 WBC (Bld) 0.2 % Normal [facility] Comment on above: Order Comment: Speci men Type: BLOOD SPECIMENOrdering Facility: [facility] Address: [address] [place] [address] Performed By: #### 5 7021-8 ####[facility]CL[facility] [id number] [place] [address] [place] Erythrocyte distribution width (RBC) [Ratio] 14.0 % Normal 11.5-15.0 [facility] Comment on above: Order Comment: Speci men Type: BLOOD SPECIMENOrdering Facility: [facility] Address: [address] [place] [address] Performed By: #### 5 7021-8 ####[facility]CL[facility] [id number] [place] [address] [place] Hematocrit (Bld) [Volume fraction] 30.6 % Low 36.0-46.0 [facility] Comment on above: Order Comment: Speci men Type: BLOOD SPECIMENOrdering Facility: [facility] Address: [address] [place] [address] Performed By: #### 5 7021-8 ####[facility]CL[facility] [id number] [place] [address] [place] Hemoglobin (Bld) [Mass/Vol] 10.5 g/dL Low 11.5-15.5 [facility] Comment on above: Order Comment: Speci men Type: BLOOD SPECIMENOrdering Facility: [facility] Address: [address] [place] [address] Performed By: #### 5 7021-8 ####[facility]CL[facility] [id number] [place] [address] [place] Immature granulocytes (Bld) [#/Vol] 10*3/uL Normal <0.10 [facility] Comment on above: Order Comment: Speci men Type: BLOOD SPECIMENOrdering Facility: [facility] Address: [address] [place] [address] Performed By: #### 5 7021-8 ####[facility]CLIA [id number] [place] [address] [place] Immature granulocytes/100 WBC (Bld) 0.2 % Normal [facility] Comment on above: Order Comment: Speci men Type: BLOOD SPECIMENOrdering Facility: [facility] Address: [address] [place] [address] Performed By: #### 5 7021-8 ####[facility]CLIA [id number] [place] [address] [place] Lymphocytes (Bld) [#/Vol] 1.37 10*3/uL Normal 1.00-4.00 [facility] Comment on above: Order Comment: Speci men Type: BLOOD SPECIMENOrdering Facility: [facility] Address: [address] [place] [address] Performed By: #### 5 7021-8 ####[facility]CLIA [id number] [place] [address] [place] Lymphocytes/100 WBC (Bld) 31.2 % Normal [facility] Comment on above: Order Comment: Speci men Type: BLOOD SPECIMENOrdering Facility: [facility] Address: [address] [place] [address] Performed By: #### 5 7021-8 ####[facility]CL[facility] [id number] [place] [address] [place] MCH (RBC) [Entitic mass] 31.3 pg Normal 26.0-34.0 [facility] Comment on above: Order Comment: Speci men Type: BLOOD SPECIMENOrdering Facility: [facility] Address: [address] [place] [address] Performed By: #### 5 7021-8 ####[facility]CLIA [id number] [place] [address] [place] MCHC (RBC) [Mass/Vol] 34.3 g/dL Normal 30.5-36.0 [facility] Comment on above: Order Comment: Speci men Type: BLOOD SPECIMENOrdering Facility: [facility] Address: [address] [place] [address] Performed By: #### 5 7021-8 ####[facility] LABCLIA [id number] [place] [address] [place] MCV (RBC) [Entitic vol] 91.1 fL Normal 80.0-100.0 [facility] Comment on above: Order Comment: Speci men Type: BLOOD SPECIMENOrdering Facility: [facility] Address: [address] [place] [address] Performed By: #### 5 7021-8 ####[facility]CL[facility] [id number] [place] [address] [place] Monocytes (Bld) [#/Vol] 0.36 10*3/uL Normal <0.87 [facility] Comment on above: Order Comment: Speci men Type: BLOOD SPECIMENOrdering Facility: [facility] Address: [address] [place] [address] Performed By: #### 5 7021-8 ####[facility]CLIA [id number] [place] [address] [place] Monocytes/100 WBC (Bld) 8.2 % Normal [facility] Comment on above: Order Comment: Speci men Type: BLOOD SPECIMENOrdering Facility: [facility] Address: [address] [place] [address] Performed By: #### 5 7021-8 ####[facility]CL[facility] [id number] [place] [address] [place] Neutrophils (Bld) [#/Vol] 2.62 10*3/uL Normal 1.45-7.50 [facility] Comment on above: Order Comment: Speci men Type: BLOOD SPECIMENOrdering Facility: [facility] Address: [address] [place] [address] Performed By: #### 5 7021-8 ####[facility]CL[facility] [id number] [place] [address] [place] Neutrophils/100 WBC (Bld) 59.7 % Normal [facility] Comment on above: Order Comment: Speci men Type: BLOOD SPECIMENOrdering Facility: [facility] Address: [address] [place] [address] Performed By: #### 5 7021-8 ####[facility]CL[facility] [id number] [place] [address] [place] Nucleated RBC (Bld) [#/Vol] 10*3/uL Normal <0.01 [facility] Comment on above: Order Comment: Speci men Type: BLOOD SPECIMENOrdering Facility: [facility] Address: [address] [place] [address] Performed By: #### 5 7021-8 ####[facility]CLIA [id number] [place] [address] [place] Nucleated RBC/100 WBC (Bld) [Ratio] 0.0 /100 WBC Normal [facility] Comment on above: Order Comment: Speci men Type: BLOOD SPECIMENOrdering Facility: [facility] Address: [address] [place] [address] Performed By: #### 5 7021-8 ####[facility] LABIA [id number] [place] [address] [place] Platelet mean volume (Bld) [Entitic vol] 11.2 fL Normal 9.0-12.7 [facility] Comment on above: Order Comment: Speci men Type: BLOOD SPECIMENOrdering Facility: [facility] Address: [address] [place] [address] Performed By: #### 5 7021-8 ####[facility] LABIA [id number] [place] [address] [place] Platelets (Bld) [#/Vol] 219 10*3/uL Normal 150-400 [facility] Comment on above: Order Comment: Speci men Type: BLOOD SPECIMENOrdering Facility: [facility] Address: [address] [place] [address] Performed By: #### 5 7021-8 ####[facility] LABIA [id number] [place] [address] [place] RBC (Bld) [#/Vol] 3.36 10*6/uL Low 3.90-5.20 [facility] Comment on above: Order Comment: Speci men Type: BLOOD SPECIMENOrdering Facility: [facility] Address: [address] [place] [address] Performed By: #### 5 7021-8 ####[facility] LABIA [id number] [place] [address] [place] WBC (Bld) [#/Vol] 4.39 10*3/uL Normal 3.70-11.00 [facility] Comment on above: Order Comment: Speci men Type: BLOOD SPECIMENOrdering Facility: [facility] Address: [address] [place] [address] Performed By: #### 5 7021-8 ####[facility] LABCLIA [id number] [place] [id number] [place] CNOVon 07-06-2023 CNOV Normal [facility] CNPTOUTREACHon 07-06-2023 CNPTOUTREACH Normal [facility] CT FLANK WO IVCONon 07-06-19 CT FLANK WO IVCON Normal [facility] ED NOTEon 07-06-2023 ED NOTE Normal [facility] ED NOTE HNO ID: [id number] Author: TG MUNOZ, DEE Service: Emergency Medicine Author Type: Registered Nurse Type: ED Notes Filed: 07/06/2023 20:35 Note Text: 0 mL post void residual. Normal [facility] ED NOTE HNO ID: [id number] Author: CORIE LINK, DEE Service: ? Author Type: Registered Nurse Type: ED Notes Filed: 07/06/2023 15:58 Note Text: Bed: E18-10 Expected date: Expected time: Means of arrival: Comments: HOLD: DILAN Normal [facility] ED PROV NOTEon 07-06-2023 ED PROV NOTE Normal [facility] ED Triage Noteon 07-06-2023 ED Triage Note Normal [facility] URINALYSIS, REFLEX MICROSCOP ICon 07-06-2023 Bilirubin Ql (U) Negative Negative [facility] Clarity (Unsp spec) Clear Clear [facility] Color (U) Light Yellow Yellow [facility] Glucose Test strip (U) [Mass/Vol] Negative Trace, Negative [facility] Hemoglobin Ql (U) Negative Negative, Trace [facility] Interpretation and review of laboratory results Normal [facility] Ketones Ql (U) Negative Negative, Trace [facility] Leukocyte esterase Test strip Ql (U) Negative Negative, 25 [place]/uL [facility] Nitrite Ql (U) Negative Negative [facility] pH (U) 7.0 [pH] 5.0 - 8.0 [facility] Protein (U) [Mass/Vol] Negative Trace, Negative [facility] Specific gravity (U) [Rel density] 1.010 1.005 - 1.030 [facility] Urobilinogen Ql (U) Normal Normal [facility] Bilirubin Ql (U) Negative Normal Negative [facility] Comment on above: Order Comment: Speci men Type: URINE SPECIMENOrdering Facility: [facility] Address: [address] [place] [address] Performed By: #### L [id number] ####[facility] LABCL[facility] [id number] [place] [address] [place] Clarity (Unsp spec) Clear Normal Clear [facility] Comment on above: Order Comment: Speci men Type: URINE SPECIMENOrdering Facility: [facility] Address: [address] [place] [address] Performed By: #### L [id number] ####[facility]CL[facility] [id number] [place] [address] [place] Color (U) Light Yellow Normal Yellow [facility] Comment on above: Order Comment: Speci men Type: URINE SPECIMENOrdering Facility: [facility] Address: [address] [place] [address] Performed By: #### L [id number] ####[facility]CL[facility] [id number] [place] [address] [place] Glucose Test strip (U) [Mass/Vol] Negative Normal Trace, Negative [facility] Comment on above: Order Comment: Speci men Type: URINE SPECIMENOrdering Facility: [facility] Address: [address] [place] [address] Performed By: #### L [id number] ####[facility]CL[facility] [id number] [place] [address] [place] Hemoglobin Ql (U) Negative Normal Negative, Trace Cl [facility] Comment on above: Order Comment: Speci men Type: URINE SPECIMENOrdering Facility: [facility] Address: [address] [place] [address] Performed By: #### L [id number] ####[facility]CL[facility] [id number] [place] [address] [place] Ketones Ql (U) Negative Normal Negative, Trace [facility] Comment on above: Order Comment: Speci men Type: URINE SPECIMENOrdering Facility: [facility] Address: [address] [place] [address] Performed By: #### L [id number] ####[facility]CL[facility] [id number] [place] [address] [place] Leukocyte esterase Test strip Ql (U) Negative Normal Negative, 25 [place]/uL [facility] Comment on above: Order Comment: Speci men Type: URINE SPECIMENOrdering Facility: [facility] Address: [address] [place] [address] Performed By: #### L [id number] ####[facility]CL[facility] [id number] [place] [address] [place] Nitrite Ql (U) Negative Normal Negative [facility] Comment on above: Order Comment: Speci men Type: URINE SPECIMENOrdering Facility: [facility] Address: [address] [place] [address] Performed By: #### L [id number] ####[facility]CL[facility] [id number] [place] [address] [place] pH (U) 7.0 [pH] Normal 5.0-8.0 [facility] Comment on above: Order Comment: Speci men Type: URINE SPECIMENOrdering Facility: [facility] Address: [address] [place] [address] Performed By: #### L [id number] ####[facility]CL[facility] [id number] [place] [address] [place] Protein (U) [Mass/Vol] Negative Normal Trace, Negative [facility] Comment on above: Order Comment: Speci men Type: URINE SPECIMENOrdering Facility: [facility] Address: [address] [place] [address] Performed By: #### L [id number] ####[facility]CL[facility] [id number] [place] [address] [place] Specific gravity (U) [Rel density] 1.010 Normal 1.005-1.030 [facility] Comment on above: Order Comment: Speci men Type: URINE SPECIMENOrdering Facility: [facility] Address: [address] [place] [address] Performed By: #### L [id number] ####[facility]CL[facility] [id number] [place] [address] [place] Urobilinogen Ql (U) Normal Normal Normal [facility] Comment on above: Order Comment: Speci men Type: URINE SPECIMENOrdering Facility: [facility] Address: [address] [place] [address] Performed By: #### L [id number] ####[facility] LABIA [id number] [place] [address] [place] Urinalysis complete panel (U )on 07-06-2023 Bacteria LM.HPF (Urine sed) [#/Area] Negative Normal Negative [facility] Comment on above: Order Comment: Speci men Type: URINE SPECIMENOrdering Facility: [facility] Address: [address] [place] [address] Performed By: #### 2 4356-8 ####[facility] LABIA [id number] [place] [address] [place] Bilirubin Ql (U) Negative Normal Negative [facility] Comment on above: Order Comment: Speci men Type: URINE SPECIMENOrdering Facility: [facility] Address: [address] [place] [address] Performed By: #### 2 4356-8 ####[facility]CL[facility] [id number] [place] [address] [place] Clarity (Unsp spec) Clear Normal Clear [facility] Comment on above: Order Comment: Speci men Type: URINE SPECIMENOrdering Facility: [facility] Address: [address] [place] [address] Performed By: #### 2 4356-8 ####[facility]CL[facility] [id number] [place] [address] [place] [facility] Color (U) Yellow Normal Yellow [facility] Comment on above: Order Comment: Speci men Type: URINE SPECIMENOrdering Facility: [facility] Address: [address] [place] [address] Performed By: #### 2 4356-8 ####[facility] LABCLIA [id number] [place] [address] [place] Epithelial cells LM.HPF (Urine sed) [#/Area] None Seen Normal [facility] Comment on above: Order Comment: Speci men Type: URINE SPECIMENOrdering Facility: [facility] Address: [address] [place] [address] Performed By: #### 2 4356-8 ####[facility] LABCLIA [id number] [address] STATES OF [facility] Glucose Test strip (U) [Mass/Vol] Negative Normal Negative [facility] Comment on above: Order Comment: Speci men Type: URINE SPECIMENOrdering Facility: [facility] Address: [address] [place] [address] Performed By: #### 2 4356-8 ####[facility] LABCLIA [id number] [place] [address] [place] Hemoglobin Ql (U) Negative Normal Negative [facility] Comment on above: Order Comment: Speci men Type: URINE SPECIMENOrdering Facility: [facility] Address: [address] [place] [address] Performed By: #### 2 4356-8 ####[facility] LABCLIA [id number] [place] [address] [place] Hyaline casts (Urine sed) [#/Area] 0 /[LPF] Normal 0 /LPF [facility] Comment on above: Order Comment: Speci men Type: URINE SPECIMENOrdering Facility: [facility] Address: [address] [place] [address] Performed By: #### 2 4356-8 ####[facility] LABCLIA [id number] [place] [address] [place] Ketones Ql (U) Negative Normal Negative [facility] Comment on above: Order Comment: Speci men Type: URINE SPECIMENOrdering Facility: [facility] Address: [address] [place] [address] Performed By: #### 2 4356-8 ####[facility] LABCLIA [id number] [place] [address] [place] Leukocyte esterase Test strip Ql (U) Negative Normal Negative [facility] Comment on above: Order Comment: Speci men Type: URINE SPECIMENOrdering Facility: [facility] Address: [address] [place] [address] Performed By: #### 2 4356-8 ####[facility] LABCLIA [id number] [place] [address] [place] Nitrite Ql (U) Negative Normal Negative [facility] Comment on above: Order Comment: Speci men Type: URINE SPECIMENOrdering Facility: [facility] Address: [address] [place] [address] Performed By: #### 2 4356-8 ####[facility] LABCLIA [id number] [place] [address] [place] pH (U) 7.5 [pH] Normal <8.5 [facility] Comment on above: Order Comment: Speci men Type: URINE SPECIMENOrdering Facility: [facility] Address: [address] [place] [address] Performed By: #### 2 4356-8 ####[facility] LABCLIA [id number] [place] [address] [place] Protein (U) [Mass/Vol] Negative Normal Negative [facility] Comment on above: Order Comment: Speci men Type: URINE SPECIMENOrdering Facility: [facility] Address: [address] [place] [address] Performed By: #### 2 4356-8 ####[facility] LABIA [id number] [place] [address] [place] RBC LM.HPF (Urine sed) [#/Area] 0-2 /HPF Normal 0-2 /HPF [facility] Comment on above: Order Comment: Speci men Type: URINE SPECIMENOrdering Facility: [facility] Address: [address] [place] [address] Performed By: #### 2 4356-8 ####[facility] LABIA [id number] [place] [address] [place] Specific gravity (U) [Rel density] 1.020 Normal 1.005-1.030 [facility] Comment on above: Order Comment: Speci men Type: URINE SPECIMENOrdering Facility: [facility] Address: [address] [place] [address] Performed By: #### 2 4356-8 ####[facility] LABIA [id number] [place] [address] [place] Urobilinogen Ql (U) 1.0 EU/dL Normal 0.2-1.0 EU/dL [facility] Comment on above: Order Comment: Speci men Type: URINE SPECIMENOrdering Facility: [facility] Address: [address] [place] [address] Performed By: #### 2 4356-8 ####[facility] LABIA [id number] [place] [address] [place] WBC LM.HPF (Urine sed) [#/Area] 0-5 /HPF Normal 0-5 /HPF [facility] Comment on above: Order Comment: Speci men Type: URINE SPECIMENOrdering Facility: [facility] Address: [address] [place] [address] Performed By: #### 2 4356-8 ####[facility] LABCLIA [id number] [facility] [id number] [id number] [place] XR CHEST 2V FRONTAL/LATon XR CHEST 2V FRONTAL/LAT Normal [facility] Glucose Test strip manual (B ld) [Mass/Vol]on 07-03-2023 Glucose [Mass/Vol] 121 mg/dL High 74 - 99 mg/dL [facility] Interpretation and review of laboratory results Abnormal [facility] Glucose [Mass/Vol] 121 mg/dL High 74-99 [facility] Comment on above: Performed By: #### 2 4356-8 #### MELISA Galvan ([id number]) [facility] (MW) [address] [place] [address] CBC panel Auto (Bld)on 07-01 Erythrocyte distribution width (RBC) [Ratio] 13.4 % 11.5 - 14.5 % [facility] Hematocrit (Bld) [Volume fraction] 35.5 % Low 36.0 - 46.0 % [facility] Hemoglobin (Bld) [Mass/Vol] 11.8 g/dL Low 12.0 - 16.0 g/dL [facility] Interpretation and review of laboratory results Abnormal [facility] MCH (RBC) [Entitic mass] 30.3 pg 26.0 - 34.0 pg [facility] MCHC (RBC) [Mass/Vol] 33.2 g/dL 32.0 - 36.0 g/dL [facility] MCV (RBC) [Entitic vol] 91 fL 80 - 100 fL [facility] Nucleated RBC/100 WBC (Bld) [Ratio] 0.0 % [facility] Platelets (Bld) [#/Vol] 223 10*3/uL [facility] RBC (Bld) [#/Vol] 3.89 10*6/uL [facility] WBC (Bld) [#/Vol] 4.5 10*3/uL [facility] Erythrocyte distribution width (RBC) [Ratio] 13.4 % Normal 11.5-14.5 [facility] Comment on above: Performed By: #### 2 4356-8 #### MELISA Galvan ([id number]) [facility] () [address] [place] [address] Hematocrit (Bld) [Volume fraction] 35.5 % Low 36.0-46.0 [facility] Comment on above: Performed By: #### 2 4356-8 #### MELISA Galvan ([id number]) [facility] () [address] [place] [address] Hemoglobin (Bld) [Mass/Vol] 11.8 g/dL Low 12.0-16.0 [facility] Comment on above: Performed By: #### 2 4356-8 #### MELISA Galvan (35285) [facility] () [address] [place] [address] MCH (RBC) [Entitic mass] 30.3 pg Normal 26.0-34.0 [facility] Comment on above: Performed By: #### 2 4356-8 #### MELISA Galvan (50107) [facility] () [address] [place] [address] MCHC (RBC) [Mass/Vol] 33.2 g/dL Normal 32.0-36.0 [facility] Comment on above: Performed By: #### 2 4356-8 #### MELISA Galvan ([id number]) [facility] () [address] [place] [address] MCV (RBC) [Entitic vol] 91 fL Normal 80-100 [facility] Comment on above: Performed By: #### 2 4356-8 #### MELISA Galvan (55549) [facility] () [address] [place] [address] Nucleated RBC/100 WBC (Bld) [Ratio] 0.0 /100 WBCs Normal 0.0-0.0 [facility] Comment on above: Performed By: #### 2 4356-8 #### MELISA Galvan ([id number]) [facility] () [address] [place] [address] Platelets (Bld) [#/Vol] 223 x10*3/uL Normal 150-450 [facility] Comment on above: Performed By: #### 2 4356-8 #### MELISA Galvan ([id number]) [facility] () [address] [place] [address] RBC (Bld) [#/Vol] 3.89 x10*6/uL Low 4.00-5.20 [facility] Comment on above: Performed By: #### 2 4356-8 #### MELISA Galvan (55707) [facility] () [address] [place] [address] WBC (Bld) [#/Vol] 4.5 x10*3/uL Normal 4.4-11.3 [facility] Comment on above: Performed By: #### 2 4356-8 #### MELISA Galvan ([id number]) [facility] () [address] [place] [address] Glucose Test strip manual (B ld) [Mass/Vol]on 07-02-2023 Glucose [Mass/Vol] 103 mg/dL High 74 - 99 mg/dL [facility] Interpretation and review of laboratory results Abnormal [facility] Glucose [Mass/Vol] 103 mg/dL High 74-99 [facility] Comment on above: Performed By: #### 2 4356-8 #### MELISA Galvna ([id number]) [facility] () [address] [place] [address] Glucose [Mass/Vol] 112 mg/dL High 74 - 99 mg/dL [facility] Interpretation and review of laboratory results Abnormal [facility] Glucose [Mass/Vol] 112 mg/dL High 74-99 [facility] Comment on above: Performed By: #### 2 4356-8 #### MELISA Galvan ([id number]) [facility] () [address] [place] [address] Glucose [Mass/Vol] 99 mg/dL 74 - 99 mg/dL [facility] Interpretation and review of laboratory results Normal [facility] Glucose [Mass/Vol] 99 mg/dL Normal 74-99 [facility] Comment on above: Performed By: #### 2 4356-8 #### MELISA Galvan ([id number]) [facility] () [address] [place] [address] Glucose [Mass/Vol] 135 mg/dL High 74 - 99 mg/dL [facility] Interpretation and review of laboratory results Abnormal [facility] Glucose [Mass/Vol] 135 mg/dL High 74-99 [facility] Comment on above: Performed By: #### 2 4356-8 #### MELISA Galvan ([id number]) [facility] () [address] [place] [address] Renal function 2000 panelon 07-02-2023 Albumin [Mass/Vol] 4.0 g/dL 3.5 - 5.0 g/dL [facility] Anion gap [Moles/Vol] 11 mmol/L NINF - 19 mmol/L [facility] Calcium [Mass/Vol] 8.6 mg/dL 8.5 - 10.4 mg/dL [facility] Chloride [Moles/Vol] 103 mmol/L 97 - 107 mmol/L [facility] CO2 [Moles/Vol] 23 mmol/L Low 24 - 31 mmol/L [facility] Creatinine [Mass/Vol] 0.70 mg/dL 0.40 - 1.60 mg/dL [facility] eGFR - PINF [facility] Comment on above: Calculations of jessica mated GFR are performed using the 2020 CKD-EPI Study Refit equation without the race variable for the IDMS-Traceable creatinine methods. https://jasn.asnjournals.org/content//ASN.26310662 88 Glucose [Mass/Vol] 101 mg/dL High 65 - 99 mg/dL [facility] Interpretation and review of laboratory results Abnormal [facility] Phosphate [Mass/Vol] 4.0 mg/dL 2.5 - 4.5 mg/dL [facility] Potassium [Moles/Vol] 3.9 mmol/L 3.4 - 5.1 mmol/L [facility] Sodium [Moles/Vol] 137 mmol/L 133 - 145 mmol/L [facility] Urea nitrogen [Mass/Vol] 13 mg/dL 8 - 25 mg/dL [facility] Albumin [Mass/Vol] 4.0 g/dL Normal 3.5-5.0 [facility] Comment on above: Performed By: #### 2 4356-8 #### MELISA Galvan ([id number]) [facility] () [address] [place] [address] Anion gap [Moles/Vol] 11 mmol/L Normal <=19 [facility] Comment on above: Performed By: #### 2 4356-8 #### MELISA Galvan ([id number]) [facility] () [address] [place] [address] Calcium [Mass/Vol] 8.6 mg/dL Normal 8.5-10.4 [facility] Comment on above: Performed By: #### 2 4356-8 #### MELISA Galvan ([id number]) [facility] () [address] [place] [address] Chloride [Moles/Vol] 103 mmol/L Normal 97-107 [facility] Comment on above: Performed By: #### 2 4356-8 #### MELISA Galvan ([id number]) [facility] () [address] [place] [address] CO2 [Moles/Vol] 23 mmol/L Low 24-31 [facility] Comment on above: Performed By: #### 2 4356-8 #### MELISA Galvan (49155) [facility] () [address] [place] [address] Creatinine [Mass/Vol] 0.70 mg/dL Normal 0.40-1.60 [facility] Comment on above: Performed By: #### 2 4356-8 #### MELISA Galvan ([id number]) [facility] () [address] [place] [address] GFR/1.73 sq M.predicted MDRD (S/P/Bld) [Vol rate/Area] mL/min/{1.73_m2} Normal >60 [facility] Comment on above: Result Comment: Calc ulations of estimated GFR are performed using the 2020 CKD-EPI Study Refit equation without the race variable for the IDMS-Traceable creatinine methods. https://jasn.asnjournals.org/content/early//ASN.17973131 88 Performed By: #### 2 4356-8 #### MELISA Galvan ([id number]) [facility] () [address] [place] [address] Glucose [Mass/Vol] 101 mg/dL High 65-99 [facility] Comment on above: Performed By: #### 2 4356-8 #### MELISA Galvan (54737) [facility] () [address] [place] [address] Phosphate [Mass/Vol] 4.0 mg/dL Normal 2.5-4.5 [facility] Comment on above: Performed By: #### 2 4356-8 #### MELISA Galvan (50339) [facility] () [address] [place] [address] Potassium [Moles/Vol] 3.9 mmol/L Normal 3.4-5.1 [facility] Comment on above: Performed By: #### 2 4356-8 #### MELISA Galvan ([id number]) [facility] () [address] [place] [address] Sodium [Moles/Vol] 137 mmol/L Normal 133-145 [facility] Comment on above: Performed By: #### 2 4356-8 #### MELISA Galvan (24214) [facility] () [address] [place] [address] Urea nitrogen [Mass/Vol] 13 mg/dL Normal 8-25 [facility] Comment on above: Performed By: #### 2 4356-8 #### MELISA Galvan (88020) [facility] () [address] [place] [address] CBC panel Auto (Bld)on 06-30 Erythrocyte distribution width (RBC) [Ratio] 13.7 % 11.5 - 14.5 % [facility] Hematocrit (Bld) [Volume fraction] 36.7 % 36.0 - 46.0 % [facility] Hemoglobin (Bld) [Mass/Vol] 12.0 g/dL 12.0 - 16.0 g/dL [facility] Interpretation and review of laboratory results Abnormal [facility] MCH (RBC) [Entitic mass] 31.1 pg 26.0 - 34.0 pg [facility] MCHC (RBC) [Mass/Vol] 32.7 g/dL 32.0 - 36.0 g/dL [facility] MCV (RBC) [Entitic vol] 95 fL 80 - 100 fL [facility] Nucleated RBC/100 WBC (Bld) [Ratio] 0.0 % [facility] Platelets (Bld) [#/Vol] 228 10*3/uL [facility] RBC (Bld) [#/Vol] 3.86 10*6/uL [facility] WBC (Bld) [#/Vol] 3.3 10*3/uL [facility] Erythrocyte distribution width (RBC) [Ratio] 13.7 % Normal 11.5-14.5 [facility] Comment on above: Performed By: #### 5 8410-2 #### MELISA Galvan ([id number]) [facility] () [address] [place] [address] Hematocrit (Bld) [Volume fraction] 36.7 % Normal 36.0-46.0 [facility] Comment on above: Performed By: #### 5 8410-2 #### MELISA Galvan () [facility] () [address] [place] [address] Hemoglobin (Bld) [Mass/Vol] 12.0 g/dL Normal 12.0-16.0 [facility] Comment on above: Performed By: #### 5 8410-2 #### MELISA Galvan (55914) [facility] () [address] [place] [address] MCH (RBC) [Entitic mass] 31.1 pg Normal 26.0-34.0 [facility] Comment on above: Performed By: #### 5 8410-2 #### MELISA Galvan (84038) [facility] () [address] [place] [address] MCHC (RBC) [Mass/Vol] 32.7 g/dL Normal 32.0-36.0 [facility] Comment on above: Performed By: #### 5 8410-2 #### MELISA Galvan (39492) [facility] () [address] [place] [address] MCV (RBC) [Entitic vol] 95 fL Normal 80-100 [facility] Comment on above: Performed By: #### 5 8410-2 #### MELISA Galvan (85880) [facility] () [address] [place] [address] Nucleated RBC/100 WBC (Bld) [Ratio] 0.0 /100 WBCs Normal 0.0-0.0 [facility] Comment on above: Performed By: #### 5 8410-2 #### MELISA Galvan (09014) [facility] () [address] [place] [address] Platelets (Bld) [#/Vol] 228 x10*3/uL Normal 150-450 [facility] Comment on above: Performed By: #### 5 8410-2 #### MELISA Galvan (95411) [facility] () [address] [place] [address] RBC (Bld) [#/Vol] 3.86 x10*6/uL Low 4.00-5.20 [facility] Comment on above: Performed By: #### 5 8410-2 #### MELISA Galvan (95091) [facility] () [address] [place] [address] WBC (Bld) [#/Vol] 3.3 x10*3/uL Low 4.4-11.3 [facility] Comment on above: Performed By: #### 5 8410-2 #### MELISA Galvan (19762) [facility] () [address] [place] [address] Glucose Test strip manual (B ld) [Mass/Vol]on 07-01-2023 Glucose [Mass/Vol] 104 mg/dL High 74 - 99 mg/dL [facility] Interpretation and review of laboratory results Abnormal [facility] Glucose [Mass/Vol] 104 mg/dL High 74-99 [facility] Comment on above: Performed By: #### 5 8410-2 #### MELISA Galvan (15243) [facility] () [address] [place] [address] Glucose [Mass/Vol] 92 mg/dL 74 - 99 mg/dL [facility] Interpretation and review of laboratory results Normal [facility] Glucose [Mass/Vol] 92 mg/dL Normal 74-99 [facility] Comment on above: Performed By: #### 5 8410-2 #### MELISA Galvan ([id number]) [facility] () [address] [place] [address] Glucose [Mass/Vol] 88 mg/dL 74 - 99 mg/dL [facility] Interpretation and review of laboratory results Normal [facility] Glucose [Mass/Vol] 88 mg/dL Normal 74-99 [facility] Comment on above: Performed By: #### 5 8410-2 #### MELISA Galvan (88576) [facility] () [address] [place] [address] Glucose [Mass/Vol] 105 mg/dL High 74 - 99 mg/dL [facility] Interpretation and review of laboratory results Abnormal [facility] Glucose [Mass/Vol] 105 mg/dL High 74-99 [facility] Comment on above: Performed By: #### 5 8410-2 #### MELISA Galvan (79709) [facility] () [address] [place] [address] Glucose [Mass/Vol] 86 mg/dL 74 - 99 mg/dL [facility] Interpretation and review of laboratory results Normal [facility] Glucose [Mass/Vol] 86 mg/dL Normal 74-99 [facility] Comment on above: Performed By: #### 5 8410-2 #### MELISA Galvan (59507) [facility] () [address] [place] [address] Glucose [Mass/Vol] 98 mg/dL 74 - 99 mg/dL [facility] Interpretation and review of laboratory results Normal [facility] Glucose [Mass/Vol] 98 mg/dL Normal 74-99 [facility] Comment on above: Performed By: #### 5 8410-2 #### MELISA Galvan ([id number]) [facility] () [address] [place] [address] [facility] 2023 [facility] Health Records [id number] [id number] Normal [facility] Magnesiumon 07-01-2023 Magnesium [Mass/Vol] 2.00 mg/dL 1.60 - 3.10 mg/dL [facility] Magnesium [Mass/Vol] 2.00 mg/dL Normal 1.60-3.10 [facility] Comment on above: Performed By: #### 5 8410-2 #### MELISA Galvan (54845) [facility] (MW) [address] [place] [address] Magnesium [Mass/Vol]on 06-30 Interpretation and review of laboratory results Normal [facility] Renal function 2000 panelon 07-01-2023 Albumin [Mass/Vol] 3.8 g/dL 3.5 - 5.0 g/dL Un [facility] Anion gap [Moles/Vol] 12 mmol/L NINF - 19 mmol/L [facility] Calcium [Mass/Vol] 8.5 mg/dL 8.5 - 10.4 mg/dL [facility] Chloride [Moles/Vol] 106 mmol/L 97 - 107 mmol/L [facility] CO2 [Moles/Vol] 21 mmol/L Low 24 - 31 mmol/L [facility] Creatinine [Mass/Vol] 0.70 mg/dL 0.40 - 1.60 mg/dL [facility] eGFR - PINF [facility] Comment on above: Calculations of jessica mated GFR are performed using the 2020 CKD-EPI Study Refit equation without the race variable for the IDMS-Traceable creatinine methods. https://jasn.asnjournals.org/content//ASN.12859560 88 Glucose [Mass/Vol] 113 mg/dL High 65 - 99 mg/dL [facility] Interpretation and review of laboratory results Abnormal [facility] Phosphate [Mass/Vol] 5.4 mg/dL High 2.5 - 4.5 mg/dL [facility] Potassium [Moles/Vol] 3.9 mmol/L 3.4 - 5.1 mmol/L [facility] Sodium [Moles/Vol] 139 mmol/L 133 - 145 mmol/L [facility] Urea nitrogen [Mass/Vol] 12 mg/dL 8 - 25 mg/dL [facility] Albumin [Mass/Vol] 3.8 g/dL Normal 3.5-5.0 [facility] Comment on above: Performed By: #### 5 8410-2 #### MELISA Galvan (84323) [facility] () [address] [place] [address] Anion gap [Moles/Vol] 12 mmol/L Normal <=19 [facility] Comment on above: Performed By: #### 5 8410-2 #### MELISA Galvan (55161) [facility] () [address] [place] [address] Calcium [Mass/Vol] 8.5 mg/dL Normal 8.5-10.4 [facility] Comment on above: Performed By: #### 5 8410-2 #### MELISA Galvan (59929) [facility] () [address] [place] [address] Chloride [Moles/Vol] 106 mmol/L Normal 97-107 [facility] Comment on above: Performed By: #### 5 8410-2 #### MELISA Galvan ([id number]) [facility] () [address] [place] [address] CO2 [Moles/Vol] 21 mmol/L Low 24-31 [facility] Comment on above: Performed By: #### 5 8410-2 #### MELISA Galvan ([id number]) [facility] () [address] [place] [address] Creatinine [Mass/Vol] 0.70 mg/dL Normal 0.40-1.60 [facility] Comment on above: Performed By: #### 5 8410-2 #### MELISA Galvan (51823) [facility] () [address] [place] [address] GFR/1.73 sq M.predicted MDRD (S/P/Bld) [Vol rate/Area] mL/min/{1.73_m2} Normal >60 [facility] Comment on above: Result Comment: Calc ulations of estimated GFR are performed using the 2020 CKD-EPI Study Refit equation without the race variable for the IDMS-Traceable creatinine methods. https://jasn.asnjournals.org/content/early/ASN.25535032 88 Performed By: #### 5 8410-2 #### MELISA Galvan ([id number]) [facility] () [address] [place] [address] Glucose [Mass/Vol] 113 mg/dL High 65-99 [facility] Comment on above: Performed By: #### 5 8410-2 #### MELISA Galvan (75204) [facility] () [address] [place] [address] Phosphate [Mass/Vol] 5.4 mg/dL High 2.5-4.5 [facility] Comment on above: Performed By: #### 5 8410-2 #### MELISA Galvan (79652) [facility] () [address] [place] [address] Potassium [Moles/Vol] 3.9 mmol/L Normal 3.4-5.1 [facility] Comment on above: Performed By: #### 5 8410-2 #### MELISA Galvan ([id number]) [facility] () [address] [place] [address] Sodium [Moles/Vol] 139 mmol/L Normal 133-145 [facility] Comment on above: Performed By: #### 5 8410-2 #### MELISA Galvan ([id number]) [facility] () [address] [place] [address] Urea nitrogen [Mass/Vol] 12 mg/dL Normal 8-25 [facility] Comment on above: Performed By: #### 5 8410-2 #### MELISA ALEXANDRO Galvan ([id number]) [facility] () [address] [place] [address] Vascular US mesenteric arter y duplex completeon 07-01-2023 [facility] [address] [place] [address] Vascular Lab Report VASC US MESENTERIC ARTERY DUPLEX COMPLETE Patient Name: ABBEY GARCIA Reading Physician: [id number] Sherry Magaña MD Study Date: 06/30/2023 Ordering Provider: [id number] JAMIL GAVIN MRN/PID: [id number] Fellow: Technologist: Leia Degroot RVT Date of /Age: 2 1990 / 33 years Technologist 2: Gender: F Admission Status: Inpatient Location Performed: [facility] 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 CPT Codes: 97639 Mesenteric Duplex scan Pertinent Release of the [...] PSV 89 cm/s KEELY PSV 105 cm/s 91239 Sherry [place] [id number] Magaña MD Electronically Amended 06/30/2023, 12:15 PM Final (Amended) [facility] Work Phone: [facility] Work Phone: XR CHEST 1 VIEWon 07-01-2023 XR CHEST 1 VIEW Interpreted By: Dotty Salcido, STUDY: XR CHEST 1 VIEW 07/01/2023 1:30 pm INDICATION: Signs/Symptoms:PICC line position verification COMPARISON: 03/17/2023 ACCESSION NUMBER(S): [id number] ORDERING CLINICIAN: DOLORES COX TECHNIQUE: Single AP view chest FINDINGS: Cardiomediastinal silhouette is within normal limits. Right-sided PICC line identified with tip in the region of the mid SVC. No infiltrate or effusion is identified. Visualized osseous structures unremarkable. IMPRESSION: 1. Right PICC line placement with tip in the mid SVC. Signed by: Dotty Salcido 07/01/2023 1:46 PM Dictation workstation: [id number] [facility] XR Chest Single viewon 06-30 1. Right PICC line placement with tip in the mid SVC. Signed by: Dotty Salcido 07/01/2023 1:46 PM Dictation workstation: [id number] MMODAL Interpreted By: Dotty Salcido, STUDY: XR CHEST 1 VIEW 07/01/2023 1:30 pm INDICATION: Signs/Symptoms:PICC line position verification COMPARISON: 03/17/2023 ACCESSION NUMBER(S): [id number] ORDERING CLINICIAN: DOLORES COX TECHNIQUE: Single AP [...] line position verification COMPARISON: 03/17/2023 ACCESSION NUMBER(S): [id number] ORDERING CLINICIAN: DOLORES COX TECHNIQUE: Single AP view chest FINDINGS: Cardiomediastinal silhouette is within normal limits. Right-sided PICC line identified with tip in the region of the mid SVC. No infiltrate or effusion is identified. Visualized osseous structures unremarkable. IMPRESSION: 1. Right PICC line placement with tip in the mid SVC. Signed by: Dotty Salcido 07/01/2023 1:46 PM Dictation workstation: [id number] [facility] Work Phone: Radiology Study observation (narrative) [facility] Work Phone: XR Chest Single viewOrdered By: Dotty Salcido on 07-01-2023 [facility] Work Phone: CBC panel Auto (Bld)on 06-29 Erythrocyte distribution width (RBC) [Ratio] 13.8 % 11.5 - 14.5 % [facility] Hematocrit (Bld) [Volume fraction] 32.2 % Low 36.0 - 46.0 % [facility] Hemoglobin (Bld) [Mass/Vol] 10.8 g/dL Low 12.0 - 16.0 g/dL [facility] Interpretation and review of laboratory results Abnormal [facility] MCH (RBC) [Entitic mass] 31.0 pg 26.0 - 34.0 pg [facility] MCHC (RBC) [Mass/Vol] 33.5 g/dL 32.0 - 36.0 g/dL [facility] MCV (RBC) [Entitic vol] 93 fL 80 - 100 fL [facility] Nucleated RBC/100 WBC (Bld) [Ratio] 0.0 % [facility] Platelets (Bld) [#/Vol] 217 10*3/uL [facility] RBC (Bld) [#/Vol] 3.48 10*6/uL Low [facility] WBC (Bld) [#/Vol] 5.0 10*3/uL [facility] Erythrocyte distribution width (RBC) [Ratio] 13.8 % Normal 11.5-14.5 [facility] Comment on above: Performed By: #### 5 8410-2 ####MELISA Galvan (86801)[facility] ()[address] [place] [address] Hematocrit (Bld) [Volume fraction] 32.2 % Low 36.0-46.0 [facility] Comment on above: Performed By: #### 5 8410-2 ####MELISA Galvan (27903)[facility] ()[address] [place] [address] Hemoglobin (Bld) [Mass/Vol] 10.8 g/dL Low 12.0-16.0 [facility] Comment on above: Performed By: #### 5 8410-2 ####MELISA Galvan (34022)[facility] ()[address] [place] [address] MCH (RBC) [Entitic mass] 31.0 pg Normal 26.0-34.0 [facility] Comment on above: Performed By: #### 5 8410-2 ####MELISA Galvan (00987)[facility] ()[address] [place] [address] MCHC (RBC) [Mass/Vol] 33.5 g/dL Normal 32.0-36.0 [facility] Comment on above: Performed By: #### 5 8410-2 ####MELISA Galvan ([id number])[facility] ()[address] [place] [address] MCV (RBC) [Entitic vol] 93 fL Normal 80-100 [facility] Comment on above: Performed By: #### 5 8410-2 ####MELISA Galvan (92200)[facility] ()[address] [place] [address] Nucleated RBC/100 WBC (Bld) [Ratio] 0.0 /100 WBCs Normal 0.0-0.0 [facility] Comment on above: Performed By: #### 5 8410-2 ####MELISA Galvan (23221)[facility] ()[address] [place] [address] Platelets (Bld) [#/Vol] 217 x10*3/uL Normal 150-450 [facility] Comment on above: Performed By: #### 5 8410-2 ####MELISA Galvan (34511)[facility] ()[address] [place] [address] RBC (Bld) [#/Vol] 3.48 x10*6/uL Low 4.00-5.20 [facility] Comment on above: Performed By: #### 5 8410-2 ####MELISA Galvan (80045)[facility] ()[address] [place] [address] WBC (Bld) [#/Vol] 5.0 x10*3/uL Normal 4.4-11.3 [facility] Comment on above: Performed By: #### 5 8410-2 ####MELISA Galvan (22261)[facility] ()[address] [place] [address] CT ANGIO ABDOMEN PELVIS W AN D/OR WO IV IV CONTRASTon 06-30-2023 CT ANGIO ABDOMEN PELVIS W AND/OR WO IV IV CONTRAST Interpreted By: Audie Gutierrez, STUDY: CT ANGIO ABDOMEN PELVIS W AND/OR WO IV IV CONTRAST; 06/30/2023 10:56 am INDICATION: Signs/Symptoms:Carmela ac disease; COMPARISON: 06/29/2023 ACCESSION NUMBER(S): [id number] ORDERING CLINICIAN: TIFFANIE MENDEZ TECHNIQUE: Contiguous axial [...] Audie Gutierrez 06/30/2023 12:06 PM Dictation workstation: [id number] [facility] Comment on above: Order Comment: [...] Audie Gutierrez 06/30/2023 12:06 PM Dictation workstation: [id number] MMODAL Interpreted By: Audie Gutierrez, STUDY: CT ANGIO ABDOMEN PELVIS W AND/OR WO IV IV CONTRAST; 06/30/2023 10:56 am INDICATION: Signs/Symptoms:Carmela ac disease; COMPARISON: 06/29/2023 ACCESSION NUMBER(S): [id number] ORDERING CLINICIAN: TIFFANIE MENDEZ TECHNIQUE: Contiguous axial [...] Signs/Symptoms:Carmela ac disease; COMPARISON: 06/29/2023 ACCESSION NUMBER(S): [id number] ORDERING CLINICIAN: TIFFANIE MENDEZ TECHNIQUE: Contiguous axial [...] Audie Gutierrez 06/30/2023 12:06 PM Dictation workstation: [id number] [facility] Work Phone: Radiology Study observation (narrative) [facility] Work Phone: CTA Abdominal vessels and Pe lvis vessels WO and W contrast IVOrdered By: Audie Gutierrez on 06-30-2023 [facility] Work Phone: Comprehensive metabolic 2000 panelOrdered By: Cristina Blevins on 06-30-2023 Albumin [Mass/Vol] 3.8 g/dL 3.5 - 5.0 g/dL [facility] ALP (Bld) [Catalytic activity/Vol] 51 U/L 35 - 125 U/L [facility] ALT [Catalytic activity/Vol] 35 U/L 5 - 40 U/L [facility] Anion gap [Moles/Vol] 13 mmol/L NINF - 19 mmol/L [facility] AST [Catalytic activity/Vol] 52 U/L High 5 - 40 U/L [facility] Bilirubin [Mass/Vol] mg/dL 0.1 - 1.2 mg/dL [facility] Calcium [Mass/Vol] 9.1 mg/dL 8.5 - 10.4 mg/dL [facility] Chloride [Moles/Vol] 90 mmol/L Low 97 - 107 mmol/L [facility] CO2 [Moles/Vol] 19 mmol/L Low 24 - 31 mmol/L [facility] Creatinine [Mass/Vol] 0.70 mg/dL 0.40 - 1.60 mg/dL [facility] eGFR - PINF [facility] Comment on above: Calculations of jessica mated GFR are performed using the 2020 CKD-EPI Study Refit equation without the race variable for the IDMS-Traceable creatinine methods. https://jasn.asnjournals.org/content/early/ASN.99215456 88 Glucose [Mass/Vol] 920 mg/dL Critically high 65 - 99 mg/d L [facility] Comment on above: Result rechecked Possible IV contamination. Results do not correlate with previous and post results. Patient was redraw . Interpretation and review of laboratory results Abnormal [facility] Potassium [Moles/Vol] 6.8 mmol/L Critically high 3.4 - 5.1 mmol/L [facility] Comment on above: Result rechecked Possible IV contamination. Results do not correlate with previus and post results. Patient was redrawn. Protein [Mass/Vol] 6.3 g/dL 5.9 - 7.9 g/dL Un [facility] Sodium [Moles/Vol] 122 mmol/L Low 133 - 145 mmol/L [facility] Comment on above: Result rechecked Urea nitrogen [Mass/Vol] 15 mg/dL 8 - 25 mg/dL [facility] Comprehensive metabolic 2000 panelon 06-30-2023 Albumin [Mass/Vol] 3.8 g/dL 3.5 - 5.0 g/dL Un [facility] ALP (Bld) [Catalytic activity/Vol] 52 U/L 35 - 125 U/L [facility] ALT [Catalytic activity/Vol] 34 U/L 5 - 40 U/L [facility] Anion gap [Moles/Vol] 10 mmol/L NINF - 19 mmol/L [facility] AST [Catalytic activity/Vol] 43 U/L High 5 - 40 U/L [facility] Bilirubin [Mass/Vol] 0.3 mg/dL 0.1 - 1.2 mg/dL [facility] Calcium [Mass/Vol] 8.8 mg/dL 8.5 - 10.4 mg/dL [facility] Chloride [Moles/Vol] 104 mmol/L 97 - 107 mmol/L [facility] CO2 [Moles/Vol] 23 mmol/L Low 24 - 31 mmol/L [facility] Creatinine [Mass/Vol] 0.60 mg/dL 0.40 - 1.60 mg/dL [facility] eGFR - PINF [facility] Comment on above: Calculations of jessica mated GFR are performed using the 2020 CKD-EPI Study Refit equation without the race variable for the IDMS-Traceable creatinine methods. https://jasn.asnjournals.org/content//ASN.18587186 88 Glucose [Mass/Vol] 136 mg/dL High 65 - 99 mg/dL [facility] Interpretation and review of laboratory results Abnormal [facility] Potassium [Moles/Vol] 3.9 mmol/L 3.4 - 5.1 mmol/L [facility] Protein [Mass/Vol] 6.3 g/dL 5.9 - 7.9 g/dL Un [facility] Sodium [Moles/Vol] 137 mmol/L 133 - 145 mmol/L [facility] Urea nitrogen [Mass/Vol] 14 mg/dL 8 - 25 mg/dL [facility] Albumin [Mass/Vol] 3.8 g/dL Normal 3.5-5.0 [facility] Comment on above: Performed By: #### 2 4323-8 ####MELISA Galvan (75738)[facility] ()[address] [place] [address] ALP (Bld) [Catalytic activity/Vol] 52 U/L Normal 35-125 [facility] Comment on above: Performed By: #### 2 4323-8 ####MELISA Galvan (33056)[facility] ()[address] [place] [address] ALT [Catalytic activity/Vol] 34 U/L Normal 5-40 [facility] Comment on above: Performed By: #### 2 432-8 ####MELISA Galvan (51293)[facility] ()[address] [place] [address] Anion gap [Moles/Vol] 10 mmol/L Normal <=19 [facility] Comment on above: Performed By: #### 2 432-8 ####MELISA Galvan (99428)[facility] ()[address] [place] [address] AST [Catalytic activity/Vol] 43 U/L High 5-40 [facility] Comment on above: Performed By: #### 2 432-8 ####MELISA Galvan (25262)[facility] ()[address] [place] [address] Bilirubin [Mass/Vol] 0.3 mg/dL Normal 0.1-1.2 [facility] Comment on above: Performed By: #### 2 432-8 ####MELISA Galvan (01888)[facility] ()[address] [place] [address] Calcium [Mass/Vol] 8.8 mg/dL Normal 8.5-10.4 [facility] Comment on above: Performed By: #### 2 432-8 ####MELISA Galvan (30365)[facility] ()[address] [place] [address] Chloride [Moles/Vol] 104 mmol/L Normal 97-107 [facility] Comment on above: Performed By: #### 2 432-8 ####MELISA Galvan (59060)[facility] ()[address] [place] [address] CO2 [Moles/Vol] 23 mmol/L Low 24-31 [facility] Comment on above: Performed By: #### 2 4323-8 ####MELISA Galvan (91000)[facility] ()[address] [place] [address] Creatinine [Mass/Vol] 0.60 mg/dL Normal 0.40-1.60 [facility] Comment on above: Performed By: #### 2 4323-8 ####MELISA Galvan (17515)[facility] ()[address] [place] [address] GFR/1.73 sq M.predicted MDRD (S/P/Bld) [Vol rate/Area] mL/min/{1.73_m2} Normal >60 [facility] Comment on above: Result Comment: Calc ulations of estimated GFR are performed using the 2020 CKD-EPI Study Refit equation without the race variable for the IDMS-Traceable creatinine methods. https://jasn.asnjournals.org/content//ASN.27290117 88 Performed By: #### 2 4323-8 ####MELISA Galvan (30113)[facility] ()[address] [place] [address] Glucose [Mass/Vol] 136 mg/dL High 65-99 [facility] Comment on above: Performed By: #### 2 4323-8 ####MELISA Galvan (64665)[facility] ()[address] [place] [address] Potassium [Moles/Vol] 3.9 mmol/L Normal 3.4-5.1 [facility] Comment on above: Performed By: #### 2 4323-8 ####MELISA Galvan (34387)[facility] ()[address] [place] [address] Protein [Mass/Vol] 6.3 g/dL Normal 5.9-7.9 [facility] Comment on above: Performed By: #### 2 4323-8 ####MELISA Galvan (56362)[facility] ()[address] [place] [address] Sodium [Moles/Vol] 137 mmol/L Normal 133-145 [facility] Comment on above: Performed By: #### 2 4323-8 ####MELISA Galvan (92121)[facility] ()[address] [place] [address] Urea nitrogen [Mass/Vol] 14 mg/dL Normal 8-25 [facility] Comment on above: Performed By: #### 2 4323-8 ####MELISA Galvan (51850)[facility] ()[address] [place] [address] Extra Urine Oralndo Tubeon 06-15 Extra Tube Hold for add-ons. [facility] Comment on above: Auto resulted. [facility] Glucose Test strip manual (B ld) [Mass/Vol]on 06-30-2023 Glucose [Mass/Vol] 117 mg/dL High 74 - 99 mg/dL [facility] Interpretation and review of laboratory results Abnormal [facility] Glucose [Mass/Vol] 117 mg/dL High 74-99 [facility] Comment on above: Performed By: #### 2 341-6 ####MELISA Galvan (22990)[facility] ()[address] [place] [address] Glucose [Mass/Vol] 77 mg/dL 74 - 99 mg/dL [facility] Interpretation and review of laboratory results Normal [facility] Glucose [Mass/Vol] 77 mg/dL Normal 74-99 [facility] Comment on above: Performed By: #### 2 341-6 ####MELISA Galvan (58886)[facility] ()[address] [place] [address] HCG ( test) IA.rapi d Ql (U)Ordered By: Agustin Cedillo on 06-30-2023 HCG ( test) Ql (U) Negative NEGATIVE [facility] Interpretation and review of laboratory results Normal [facility] HCG ( test) IA.rapi d Ql (U)on 06-30-2023 HCG ( test) Ql (U) Negative Normal NEGATIVE [facility] Comment on above: Performed By: #### 8 0384-1 ####MELISA Galvan (19404)[facility] ()[address] [place] [address] Magnesiumon 06-30-2023 Magnesium [Mass/Vol] 1.90 mg/dL 1.60 - 3.10 mg/dL [facility] Magnesium [Mass/Vol] 1.90 mg/dL Normal 1.60-3.10 [facility] Comment on above: Performed By: #### 1 9123-9 ####MELISA Galvan (52435)[facility] ()[address] [place] [address] No Panel Informationon 06-29 Interpretation and review of laboratory results Normal [facility] Phosphateon 06-30-2023 Phosphate [Mass/Vol] 4.4 mg/dL Normal 2.5-4.5 [facility] Comment on above: Performed By: #### 2 777-1 ####MELISA Galvan (63911)[facility] ()[address] [place] [address] Phosphoruson 06-30-2023 Phosphate [Mass/Vol] 4.4 mg/dL 2.5 - 4.5 mg/dL [facility] Urinalysis complete W Reflex Culture panel (U)on 06-30-2023 Appearance (U) Clear Clear [facility] Bilirubin (U) [Mass/Vol] Negative NEGATIVE [facility] Color (U) Light-Yellow Light-Yellow, Yellow, Dark-Yellow [facility] Glucose Auto test strip (U) [Mass/Vol] Normal Normal mg/dL [facility] Interpretation and review of laboratory results Normal [facility] Ketones (U) [Mass/Vol] Negative NEGATIVE mg/dL [facility] Leukocyte esterase Auto test strip Ql (U) Negative NEGATIVE [facility] Nitrite Auto test strip Ql (U) Negative NEGATIVE [facility] pH (U) 6.0 [pH] 5.0, 5.5, 6.0, 6.5, 7.0, 7.5, 8.0 [facility] Protein (U) [Mass/Vol] Negative NEGATIVE, 10 (TRACE), 20 (TRACE) mg/dL [facility] RBC (U) [#/Vol] Negative NEGATIVE [facility] Specific gravity (U) [Rel density] 1.023 1.005 - 1.035 [facility] Urobilinogen (U) [Mass/Vol] Normal Normal mg/dL [facility] Appearance (U) Clear Normal Clear [facility] Comment on above: Performed By: #### 5 8077-9 ####MELISA Galvan (16989)[facility] ()[address] [place] [address] Bilirubin (U) [Mass/Vol] Negative Normal NEGATIVE [facility] Comment on above: Performed By: #### 5 8077-9 ####MELISA Galvan ([id number])[facility] ()[address] [place] [address] Color (U) Light-Yellow Normal Light-Yellow, Yellow, Dark-Yellow [facility] Comment on above: Performed By: #### 5 8077-9 ####MELISA Galvan (97316)[facility] ()[address] [place] [address] Glucose Auto test strip (U) [Mass/Vol] Normal Normal Normal [facility] Comment on above: Performed By: #### 5 8077-9 ####MELISA Galvan (07482)[facility] ()[address] [place] [address] Ketones (U) [Mass/Vol] Negative Normal NEGATIVE [facility] Comment on above: Performed By: #### 5 8077-9 ####MELISA Galvan (53049)[facility] ()[address] [place] [address] Leukocyte esterase Auto test strip Ql (U) Negative Normal NEGATIVE [facility] Comment on above: Performed By: #### 5 8077-9 ####MELISA Galvan (21826)[facility] ()[address] [place] [address] Nitrite Auto test strip Ql (U) Negative Normal NEGATIVE [facility] Comment on above: Performed By: #### 5 8077-9 ####MELISA Galvan (47553)[facility] ()[address] [place] [address] pH (U) 6.0 [pH] Normal 5.0, 5.5, 6.0, 6.5, 7.0, 7.5, 8.0 [facility] Comment on above: Performed By: #### 5 8077-9 ####MELISA Galvan (78647)[facility] ()[address] [place] [address] Protein (U) [Mass/Vol] Negative Normal NEGATIVE, 10 (TRACE), 20 (TRACE) [facility] Comment on above: Performed By: #### 5 8077-9 ####MELISA Galvan ([id number])[facility] ()[address] [place] [address] RBC (U) [#/Vol] Negative Normal NEGATIVE [facility] Comment on above: Performed By: #### 5 8077-9 ####MELISA Galvan (30740)[facility] ()[address] [place] [address] Specific gravity (U) [Rel density] 1.023 Normal 1.005-1.035 [facility] Comment on above: Performed By: #### 5 8077-9 ####MELISA Galvan ([id number])[facility] ()[address] [place] [address] Urobilinogen (U) [Mass/Vol] Normal Normal Normal [facility] Comment on above: Performed By: #### 5 8077-9 ####MELISA Galvan (67231)[facility] ()[address] [place] [address] VASC US MESENTERIC ARTERY DU PLEX COMPLETEon 06-30-2023 VASC US MESENTERIC ARTERY DUPLEX COMPLETE [facility] [address] [place] [address] Vascular Lab Report VASC US MESENTERIC ARTERY DUPLEX COMPLETE Patient Name: ABBEY Oneil Physician: [id number] Sherry Magaña MD Study Date: 06/30/2023 Ordering Provider: 70184 JAMIL GAVIN MRN/PID: [id number] Fellow: Technologist: Leia Degroot T Date of /Age: 2 1990 / 33 years Technologist 2: Gender: F Admission Status: Inpatient Location Performed: [facility] 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 Report Amended Report Amended By: [id number] Sherry Magaña MD Date and Time: 06/30/2023 [...] PSV 89 cm/s KEELY PSV 105 cm/s 95937 Sherry Magaña MD Brandy Magaña MD Electronically Amended 06/30/2023, 12:15 PM Final (Amended) Normal [facility] Vascular US mesenteric arter y duplex completeon 06-30-2023 Radiology Study observation (narrative) [facility] Work Phone: Basic metabolic 2000 panelon 06-29-2023 Anion gap [Moles/Vol] 12 mmol/L NINF - 19 mmol/L [facility] Calcium [Mass/Vol] 8.6 mg/dL 8.5 - 10.4 mg/dL [facility] Chloride [Moles/Vol] 105 mmol/L 97 - 107 mmol/L [facility] CO2 [Moles/Vol] 21 mmol/L Low 24 - 31 mmol/L [facility] Creatinine [Mass/Vol] 0.60 mg/dL 0.40 - 1.60 mg/dL [facility] eGFR - PINF [facility] Comment on above: Calculations of jessica mated GFR are performed using the 2020 CKD-EPI Study Refit equation without the race variable for the IDMS-Traceable creatinine methods. https://jasn.asnjournals.org/content//ASN.43397259 88 Glucose [Mass/Vol] 106 mg/dL High 65 - 99 mg/dL [facility] Interpretation and review of laboratory results Abnormal [facility] Potassium [Moles/Vol] 3.9 mmol/L 3.4 - 5.1 mmol/L [facility] Sodium [Moles/Vol] 138 mmol/L 133 - 145 mmol/L [facility] Urea nitrogen [Mass/Vol] 16 mg/dL 8 - 25 mg/dL [facility] Anion gap [Moles/Vol] 12 mmol/L Normal <=19 [facility] Comment on above: Performed By: #### V ERAB #### MELISA Galvan ([id number]) [facility] ([facility]) [address] [place] [address] [place] Calcium [Mass/Vol] 8.6 mg/dL Normal 8.5-10.4 [facility] Comment on above: Performed By: #### V ERAB #### MELISA Galvan ([id number]) [facility] ([facility]) [address] [place] [address] [place] Chloride [Moles/Vol] 105 mmol/L Normal 97-107 [facility] Comment on above: Performed By: #### V ERAB #### MELISA Galvan ([id number]) [facility] ([facility]) [address] [place] [address] [place] CO2 [Moles/Vol] 21 mmol/L Low 24-31 [facility] Comment on above: Performed By: #### V ERAB #### MELISA Galvan ([id number]) [facility] ([facility]) [address] [place] [address] [place] Creatinine [Mass/Vol] 0.60 mg/dL Normal 0.40-1.60 [facility] Comment on above: Performed By: #### V ERAB #### MELISA Galvan ([id number]) [facility] ([facility]) [address] [place] [address] [place] GFR/1.73 sq M.predicted MDRD (S/P/Bld) [Vol rate/Area] mL/min/{1.73_m2} Normal >60 [facility] Comment on above: Result Comment: Calc ulations of estimated GFR are performed using the 2020 CKD-EPI Study Refit equation without the race variable for the IDMS-Traceable creatinine methods. https://jasn.asnjournals.org/content//ASN.80401577 88 Performed By: #### V ERAB #### MELISA Galvan ([id number]) [facility] ([facility]) [address] [place] [address] [place] Glucose [Mass/Vol] 106 mg/dL High 65-99 [facility] Comment on above: Performed By: #### V ERAB #### MELISA Galvan ([id number]) [facility] ([facility]) [address] [place] [address] [place] Potassium [Moles/Vol] 3.9 mmol/L Normal 3.4-5.1 [facility] Comment on above: Performed By: #### V ERAB #### MELISA Galvan ([id number]) [facility] ([facility]) [address] [place] [address] [place] Sodium [Moles/Vol] 138 mmol/L Normal 133-145 [facility] Comment on above: Performed By: #### V ERAB #### MELISA Galvan ([id number]) [facility] ([facility]) [address] [place] [address] [place] Urea nitrogen [Mass/Vol] 16 mg/dL Normal 8-25 [facility] Comment on above: Performed By: #### V ERAB #### MEILSA Galvan ([id number]) [facility] ([facility]) [address] [place] [address] US CBC W Auto Differential pane l (Bld)on 06-29-2023 Basophils (Bld) [#/Vol] 0.03 10*3/uL [facility] Basophils/100 WBC (Bld) 0.6 % 0.0 - 2.0 % [facility] Eosinophils (Bld) [#/Vol] 0.01 10*3/uL [facility] Eosinophils/100 WBC (Bld) 0.2 % 0.0 - 6.0 % [facility] Erythrocyte distribution width (RBC) [Ratio] 13.8 % 11.5 - 14.5 % [facility] Hematocrit (Bld) [Volume fraction] 32.2 % Low 36.0 - 46.0 % [facility] Hemoglobin (Bld) [Mass/Vol] 10.3 g/dL Low 12.0 - 16.0 g/dL [facility] Immature granulocytes (Bld) [#/Vol] 0.01 10*3/uL [facility] Immature granulocytes/100 WBC (Bld) 0.2 % 0.0 - 0.9 % [facility] Comment on above: Immature Granulocyte Count (IG) includes promyelocytes, myelocytes and metamyelocytes but does not include bands. Percent differential counts (%) should be interpreted in the context of the absolute cell counts (cells/UL). Interpretation and review of laboratory results Abnormal [facility] Lymphocytes (Bld) [#/Vol] 1.15 10*3/uL Low [facility] Lymphocytes/100 WBC (Bld) 23.1 % 13.0 - 44.0 % [facility] MCH (RBC) [Entitic mass] 31.2 pg 26.0 - 34.0 pg [facility] MCHC (RBC) [Mass/Vol] 32.0 g/dL 32.0 - 36.0 g/dL [facility] MCV (RBC) [Entitic vol] 98 fL 80 - 100 fL [facility] Monocytes (Bld) [#/Vol] 0.20 10*3/uL [facility] Monocytes/100 WBC (Bld) 4.0 % 2.0 - 10.0 % [facility] Neutrophils (Bld) [#/Vol] 3.57 10*3/uL [facility] Comment on above: Percent differential counts (%) should be interpreted in the context of the absolute cell counts (cells/uL). Neutrophils/100 WBC (Bld) 71.9 % 40.0 - 80.0 % [facility] Nucleated RBC/100 WBC (Bld) [Ratio] 0.0 % [facility] Platelets (Bld) [#/Vol] 231 10*3/uL [facility] RBC (Bld) [#/Vol] 3.30 10*6/uL [facility] WBC (Bld) [#/Vol] 5.0 10*3/uL [facility] Basophils (Bld) [#/Vol] 0.03 x10*3/uL Normal 0.00-0.10 [facility] Comment on above: Performed By: #### V ERAB #### MELISA Galvan ([id number]) [facility] ([facility]) [address] [place] [address] [place] Basophils/100 WBC (Bld) 0.6 % Normal 0.0-2.0 [facility] Comment on above: Performed By: #### V ERAB #### MELISA Galvan () [facility] [address] [place] [address] [place] Eosinophils (Bld) [#/Vol] 0.01 x10*3/uL Normal 0.00-0.70 [facility] Comment on above: Performed By: #### V ERAB #### MELISA Galvan () [facility] [address] [place] [address] [place] Eosinophils/100 WBC (Bld) 0.2 % Normal 0.0-6.0 [facility] Comment on above: Performed By: #### V ERAB #### MELISA Galvan () [facility] [address] [place] [address] [place] Erythrocyte distribution width (RBC) [Ratio] 13.8 % Normal 11.5-14.5 [facility] Comment on above: Performed By: #### V ERAB #### MELISA Galvan () [facility] [address] [place] [address] [place] Hematocrit (Bld) [Volume fraction] 32.2 % Low 36.0-46.0 [facility] Comment on above: Performed By: #### V ERAB #### MELISA Galvan ([id number]) [facility] [address] [place] [address] [place] Hemoglobin (Bld) [Mass/Vol] 10.3 g/dL Low 12.0-16.0 [facility] Comment on above: Performed By: #### V ERAB #### MELISA Galvan () [facility] [address] [place] [address] [place] Immature granulocytes (Bld) [#/Vol] 0.01 x10*3/uL Normal 0.00-0.70 [facility] Comment on above: Performed By: #### V ERAB #### MELISA Galvan ([id number]) [facility] ([facility]) [address] [place] [address] [place] Immature granulocytes/100 WBC (Bld) 0.2 % Normal 0.0-0.9 [facility] Comment on above: Result Comment: Janny ture Granulocyte Count (IG) includes promyelocytes, myelocytes and metamyelocytes but does not include bands. Percent differential counts (%) should be interpreted in the context of the absolute cell counts (cells/UL). Performed By: #### V ERAB #### MELISA Galvan ([id number]) [facility] ([facility]) [id number] [place] [address] [place] Lymphocytes (Bld) [#/Vol] 1.15 x10*3/uL Low 1.20-4.80 [facility] Comment on above: Performed By: #### V ERAB #### MELISA Galvan ([id number]) [facility] ([facility]) [address] [place] [address] [place] Lymphocytes/100 WBC (Bld) 23.1 % Normal 13.0-44.0 [facility] Comment on above: Performed By: #### V ERAB #### MELISA Galvan ([id number]) [facility] ([facility]) [address] [place] [address] [place] MCH (RBC) [Entitic mass] 31.2 pg Normal 26.0-34.0 [facility] Comment on above: Performed By: #### V ERAB #### MELISA Galvan ([id number]) [facility] ([facility]) [address] [place] [address] US MCHC (RBC) [Mass/Vol] 32.0 g/dL Normal 32.0-36.0 [facility] Comment on above: Performed By: #### V ERAB #### MELISA Galvan ([id number]) [facility] ([facility]) [address] [place] [address] [place] MCV (RBC) [Entitic vol] 98 fL Normal 80-100 [facility] Comment on above: Performed By: #### V ERAB #### MELISA Galvan ([id number]) [facility] ([facility]) [address] [place] [address] [place] Monocytes (Bld) [#/Vol] 0.20 x10*3/uL Normal 0.10-1.00 [facility] Comment on above: Performed By: #### V ERAB #### MELISA Galvan () [facility] ([facility]) [address] [place] [address] [place] Monocytes/100 WBC (Bld) 4.0 % Normal 2.0-10.0 [facility] Comment on above: Performed By: #### V ERAB #### MELISA Galvan ([id number]) [facility] ([facility]) [address] [place] [address] [place] Neutrophils (Bld) [#/Vol] 3.57 x10*3/uL Normal 1.20-7.70 [facility] Comment on above: Result Comment: Perc ent differential counts (%) should be interpreted in the context of the absolute cell counts (cells/uL). Performed By: #### V ERAB #### MELISA Galvan ([id number]) [facility] ([facility]) [address] [place] [address] [place] Neutrophils/100 WBC (Bld) 71.9 % Normal 40.0-80.0 [facility] Comment on above: Performed By: #### V ERAB #### MELISA Galvan ([id number]) [facility] ([facility]) [address] [place] [address] [place] Nucleated RBC/100 WBC (Bld) [Ratio] 0.0 /100 WBCs Normal 0.0-0.0 [facility] Comment on above: Performed By: #### V ERAB #### MELISA Galvan ([id number]) [facility] ([facility]) [address] [place] [address] [place] Platelets (Bld) [#/Vol] 231 x10*3/uL Normal 150-450 [facility] Comment on above: Performed By: #### V ERAB #### MELISA Galvan ([id number]) [facility] ([facility]) [address] [place] [address] [place] RBC (Bld) [#/Vol] 3.30 x10*6/uL Low 4.00-5.20 [facility] Comment on above: Performed By: #### V ERAB #### MELISA Galvan ([id number]) [facility] ([facility]) [address] [place] [address] [place] WBC (Bld) [#/Vol] 5.0 x10*3/uL Normal 4.4-11.3 [facility] Comment on above: Performed By: #### Beth ERAB #### MELISA Galvan ([id number]) [facility] ([facility]) [address] [place] [address] US CBC panel Auto (Bld)on 06-28 Erythrocyte distribution width (RBC) [Ratio] 13.7 % 11.5 - 14.5 % [facility] Hematocrit (Bld) [Volume fraction] 32.7 % Low 36.0 - 46.0 % [facility] Hemoglobin (Bld) [Mass/Vol] 11.0 g/dL Low 12.0 - 16.0 g/dL [facility] Interpretation and review of laboratory results Abnormal [facility] MCH (RBC) [Entitic mass] 30.7 pg 26.0 - 34.0 pg [facility] MCHC (RBC) [Mass/Vol] 33.6 g/dL 32.0 - 36.0 g/dL [facility] MCV (RBC) [Entitic vol] 91 fL 80 - 100 fL [facility] Nucleated RBC/100 WBC (Bld) [Ratio] 0.0 % [facility] Platelets (Bld) [#/Vol] 246 10*3/uL [facility] RBC (Bld) [#/Vol] 3.58 10*6/uL Low [facility] WBC (Bld) [#/Vol] 5.2 10*3/uL [facility] Erythrocyte distribution width (RBC) [Ratio] 13.7 % Normal 11.5-14.5 [facility] Comment on above: Performed By: #### V ERAB #### MELISA Galvan ([id number]) [facility] ([facility]) [address] [place] [address] [place] Hematocrit (Bld) [Volume fraction] 32.7 % Low 36.0-46.0 [facility] Comment on above: Performed By: #### V ERAB #### MELISA Galvan ([id number]) [facility] ([facility]) [address] [place] [address] [place] Hemoglobin (Bld) [Mass/Vol] 11.0 g/dL Low 12.0-16.0 [facility] Comment on above: Performed By: #### V ERAB #### MELISA Galvan ([id number]) [facility] ([facility]) [address] [place] [address] US MCH (RBC) [Entitic mass] 30.7 pg Normal 26.0-34.0 [facility] Comment on above: Performed By: #### V ERAB #### MELISA Galvan ([id number]) [facility] ([facility]) [address] [place] [address] US MCHC (RBC) [Mass/Vol] 33.6 g/dL Normal 32.0-36.0 [facility] Comment on above: Performed By: #### V ERAB #### MELISA Galvan ([id number]) [facility] ([facility]) [address] [place] [address] US MCV (RBC) [Entitic vol] 91 fL Normal 80-100 [facility] Comment on above: Performed By: #### V ERAB #### MELISA Galvan ([id number]) [facility] ([facility]) [address] [place] [address] [place] Nucleated RBC/100 WBC (Bld) [Ratio] 0.0 /100 WBCs Normal 0.0-0.0 [facility] Comment on above: Performed By: #### V ERAB #### MELISA Galvan ([id number]) [facility] ([facility]) [address] [place] [address] [place] Platelets (Bld) [#/Vol] 246 x10*3/uL Normal 150-450 [facility] Comment on above: Performed By: #### V ERAB #### MELISA Galvan ([id number]) [facility] ([facility]) [address] [place] [address] US RBC (Bld) [#/Vol] 3.58 x10*6/uL Low 4.00-5.20 [facility] Comment on above: Performed By: #### V ERAB #### MELISA Galvan ([id number]) [facility] ([facility]) [address] [place] [address] US WBC (Bld) [#/Vol] 5.2 x10*3/uL Normal 4.4-11.3 [facility] Comment on above: Performed By: #### V ERAB #### MELISA Galvan ([id number]) [facility] ([facility]) [address] [place] [address] ABDOMEN PELVIS WO IV CONT [facility] 06-29-2023 CT ABDOMEN PELVIS WO IV CONTRAST Interpreted By: Fly West, STUDY: CT ABDOMEN PELVIS WO IV CONTRAST; 06/29/2023 11:09 pm INDICATION: Signs/Symptoms:Abdo kerry pain. COMPARISON: 03/16/2023 ACCESSION NUMBER(S): [id number] ORDERING CLINICIAN: DAVID VALADEZ TECHNIQUE: Axial CT [...] Fly West 06/29/2023 11:53 PM Dictation workstation: [id number] [facility] CT Abdomen WO contraston 1. No acute abdominal or pelvic process. 2. Numerous hepatic hypodense lesions, incompletely characterize, though likely reflecting cysts. Appearance is similar to 03/16/2023. 3. Postsurgical changes as above. Signed by: Fly West 06/29/2023 11:53 PM Dictation workstation: [id number] [facility] ER Interpreted By: Fly West, STUDY: CT ABDOMEN PELVIS WO IV CONTRAST; 06/29/2023 11:09 pm INDICATION: Signs/Symptoms:Abdo kerry pain. COMPARISON: 03/16/2023 ACCESSION NUMBER(S): [id number] ORDERING CLINICIAN: DAVID VALADEZ TECHNIQUE: Axial CT [...] Signs/Symptoms:Abdo kerry pain. COMPARISON: 03/16/2023 ACCESSION NUMBER(S): [id number] ORDERING CLINICIAN: DAVID VALADEZ TECHNIQUE: Axial CT [...] Fly West 06/29/2023 11:53 PM Dictation workstation: [id number] [facility] Work Phone: Radiology Study observation (narrative) [facility] Work Phone: CT Abdomen WO contrastOrdere d By: Fly West on 06-29-2023 [facility] Work Phone: Comprehensive metabolic 2000 panelon 06-29-2023 Albumin [Mass/Vol] 3.8 g/dL Normal 3.5-5.0 [facility] Comment on above: Performed By: #### V ERAB #### MELISA Galvan ([id number]) [facility] ([facility]) [address] [place] [address] US ALP (Bld) [Catalytic activity/Vol] 51 U/L Normal 35-125 [facility] Comment on above: Performed By: #### V ERAB #### MELISA Galvan ([id number]) [facility] ([facility]) [address] [place] [address] US ALT [Catalytic activity/Vol] 35 U/L Normal 5-40 [facility] Comment on above: Performed By: #### V ERAB #### MELISA Galvan ([id number]) [facility] ([facility]) [address] [place] [address] [place] Anion gap [Moles/Vol] 13 mmol/L Normal <=19 [facility] Comment on above: Performed By: #### V ERAB #### MELISA Galvan ([id number]) [facility] ([facility]) [address] [place] [address] US AST [Catalytic activity/Vol] 52 U/L High 5-40 [facility] Comment on above: Performed By: #### V ERAB #### MELISA Galvan ([id number]) [facility] [address] [place] [address] [place] Bilirubin [Mass/Vol] mg/dL Normal 0.1-1.2 [facility] Comment on above: Performed By: #### V ERAB #### MELISA Galvan ([id number]) [facility] [address] [place] [address] US Calcium [Mass/Vol] 9.1 mg/dL Normal 8.5-10.4 [facility] Comment on above: Performed By: #### V ERAB #### MELISA Galvan ([id number]) [facility] ([facility]) [address] [place] [address] US Chloride [Moles/Vol] 90 mmol/L Low 97-107 [facility] Comment on above: Performed By: #### V ERAB #### MELISA Glavan ([id number]) [facility] ([facility] [address] [place] [address] [place] CO2 [Moles/Vol] 19 mmol/L Low 24-31 [facility] Comment on above: Performed By: #### V ERAB #### MELISA Galvan ([id number]) [facility] ([facility]) [address] [place] [address] [place] Creatinine [Mass/Vol] 0.70 mg/dL Normal 0.40-1.60 [facility] Comment on above: Performed By: #### V ERAB #### MELISA Galvan ([id number]) [facility] ([facility]) [address] [place] [address] US GFR/1.73 sq M.predicted MDRD (S/P/Bld) [Vol rate/Area] mL/min/{1.73_m2} Normal >60 [facility] Comment on above: Result Comment: Calc ulations of estimated GFR are performed using the 2020 CKD-EPI Study Refit equation without the race variable for the IDMS-Traceable creatinine methods. https://jasn.asnjournals.org/content/early/ASN.33762665 88 Performed By: #### V ERAB #### MELISA Galvan ([id number]) [facility] ([facility]) [address] [place] [address] [place] Glucose [Mass/Vol] 920 mg/dL Critically high 65-99 U [facility] Comment on above: Result Comment: Resu lt rechecked Possible IV contamination. Results do not correlate with previous and post results. Patient was redraw . Performed By: #### V ERAB #### MELISA Galvan ([id number]) [facility] ([facility]) [address] [place] [address] [place] Potassium [Moles/Vol] 6.8 mmol/L Critically high 3.4-5.1 [facility] Comment on above: Result Comment: Resu lt rechecked Possible IV contamination. Results do not correlate with previus and post results. Patient was redrawn. Performed By: #### V ERAB #### MELISA Galvan ([id number]) [facility] ([facility]) [address] [place] [address] US Protein [Mass/Vol] 6.3 g/dL Normal 5.9-7.9 [facility] Comment on above: Performed By: #### V ERAB #### MELISA Galvan ([id number]) [facility] ([facility]) [address] [place] [address] US Sodium [Moles/Vol] 122 mmol/L Low 133-145 [facility] Comment on above: Result Comment: Resu lt rechecked Performed By: #### V ERAB #### MELISA Galvan ([id number]) [facility] [address] [place] [address] US Urea nitrogen [Mass/Vol] 15 mg/dL Normal 8-25 [facility] Comment on above: Performed By: #### V ERAB #### MELISA Galvan ([id number]) [facility] ([facility]) [address] [place] [address] US Glucose Test strip manual (B ld) [Mass/Vol]on 06-29-2023 Glucose [Mass/Vol] 117 mg/dL High 74 - 99 mg/dL [facility] Interpretation and review of laboratory results Abnormal [facility] Glucose [Mass/Vol] 117 mg/dL High 74-99 [facility] Comment on above: Performed By: #### V ERAOfelia #### MELISA Galvan ([id number]) [facility] ([facility] [address] [place], [place] [address] Home Health Recordson 2023 Home Health Records [id number] 8#1.00TIFF [facility] Auth for Release of Medical Recordson 06-23-2023 Auth for Release of Medical Records [id number] B#1.00TIFF [facility] ED Note-Physicianon 06-23-19 ED Note-Physician [id number] D5#1.00TIFF [facility] ED Note-Physicianon 06-22-19 24 ED Note-Physician [id number] 906#1.00TIFF [facility] ED Note-Physician [id number] 15#1.00TIFF [facility] Lab Reportson 06-22-2023 Lab Reports [id number] 447#1.00TIFF [facility] Provider Letteron 06-22-[address] [facility] RAD - CT Reporton 06-22-2023 RAD - CT Report [id number] 594#1.00TIFF [facility] Home Health Recordson 2023 Home Health Records [id number] 00#1.00TIFF [facility] ALLIED HEALTHon 06-18-2023 ALLIED HEALTH Normal [facility] CBC W Auto Differential pane l (Bld)on 06-18-2023 Basophils (Bld) [#/Vol] 0.04 10*3/uL Normal <0.11 [facility] Comment on above: Order Comment: Speci men Type: BLOOD SPECIMENOrdering Facility: [facility] Address: [address] [place] [address] Performed By: #### 5 7021-8 ####[facility] LABORATORYCLIA [id number] [place] [id number] [place] Basophils/100 WBC (Bld) 0.8 % Normal [facility] Comment on above: Order Comment: Speci men Type: BLOOD SPECIMENOrdering Facility: [facility] Address: [address] [place] [address] Performed By: #### 5 7021-8 ####[facility] LABORATORYCLIA [id number] [place] [address] [place] Differential cell count method Nom (Bld) Auto Normal [facility] Comment on above: Order Comment: Speci men Type: BLOOD SPECIMENOrdering Facility: [facility] Address: [address] [place] [address] Performed By: #### 5 7021-8 ####[facility] LABORATORYCLIA [id number] [place] [address] [place] Eosinophils (Bld) [#/Vol] 0.13 10*3/uL Normal <0.46 [facility] Comment on above: Order Comment: Speci men Type: BLOOD SPECIMENOrdering Facility: [facility] Address: [address] [place] [address] Performed By: #### 5 7021-8 ####[facility] LABORATORYCLIA [id number] [place] [id number] [place] Eosinophils/100 WBC (Bld) 2.8 % Normal [facility] Comment on above: Order Comment: Speci men Type: BLOOD SPECIMENOrdering Facility: [facility] Address: [address] [place] [address] Performed By: #### 5 7021-8 ####[facility] LABORATORYCLIA [id number] [place] [id number] [place] Erythrocyte distribution width (RBC) [Ratio] 13.3 % Normal 11.5-15.0 [facility] Comment on above: Order Comment: Speci men Type: BLOOD SPECIMENOrdering Facility: [facility] Address: [address] [place] [address] Performed By: #### 5 7021-8 ####[facility] LABORATORYCLIA [id number] [place] [address] [place] Hematocrit (Bld) [Volume fraction] 34.6 % Low 36.0-46.0 [facility] Comment on above: Order Comment: Speci men Type: BLOOD SPECIMENOrdering Facility: [facility] Address: [address] [place] [address] Performed By: #### 5 7021-8 ####[facility] LABORATORYCLIA [id number] [place] [address] [place] [place] Hemoglobin (Bld) [Mass/Vol] 12.0 g/dL Normal 11.5-15.5 [facility] Comment on above: Order Comment: Speci men Type: BLOOD SPECIMENOrdering Facility: [facility] Address: [address] [place] [address] Performed By: #### 5 7021-8 ####[facility] LABORATORYCLIA [id number] [place] [address] [place] Immature granulocytes (Bld) [#/Vol] 10*3/uL Normal <0.10 [facility] Comment on above: Order Comment: Speci men Type: BLOOD SPECIMENOrdering Facility: [facility] Address: [address] [place] [address] Performed By: #### 5 7021-8 ####[facility] LABORATORYCLIA [id number] [place] [id number] [facility] [place] Immature granulocytes/100 WBC (Bld) 0.2 % Normal [facility] Comment on above: Order Comment: Speci men Type: BLOOD SPECIMENOrdering Facility: [facility] Address: [address] [place] [address] Performed By: #### 5 7021-8 ####[facility] LABORATORYCLIA [id number] [place] [address] [place] Lymphocytes (Bld) [#/Vol] 1.90 10*3/uL Normal 1.00-4.00 [facility] Comment on above: Order Comment: Speci men Type: BLOOD SPECIMENOrdering Facility: [facility] Address: [address] [place] [address] Performed By: #### 5 7021-8 ####[facility] LABORATORYCLIA [id number] [address] [place] Lymphocytes/100 WBC (Bld) 40.3 % Normal [facility] Comment on above: Order Comment: Speci men Type: BLOOD SPECIMENOrdering Facility: [facility] Address: [address] [place] [address] Performed By: #### 5 7021-8 ####[facility] LABORATORYCLIA [id number] [place] [address] [place] MCH (RBC) [Entitic mass] 30.9 pg Normal 26.0-34.0 [facility] Comment on above: Order Comment: Speci men Type: BLOOD SPECIMENOrdering Facility: [facility] Address: [address] [place] [address] Performed By: #### 5 7021-8 ####[facility] LABORATORYCLIA [id number] [address] [place] MCHC (RBC) [Mass/Vol] 34.7 g/dL Normal 30.5-36.0 [facility] Comment on above: Order Comment: Speci men Type: BLOOD SPECIMENOrdering Facility: [facility] Address: [address] [place] [address] Performed By: #### 5 7021-8 ####[facility] LABORATORYCLIA [id number] [address] [place] MCV (RBC) [Entitic vol] 89.2 fL Normal 80.0-100.0 [facility] Comment on above: Order Comment: Speci men Type: BLOOD SPECIMENOrdering Facility: [facility] Address: [address] [place] [address] Performed By: #### 5 7021-8 ####[facility] LABORATORYCLIA [id number] [place] [id number] [place] Monocytes (Bld) [#/Vol] 0.24 10*3/uL Normal <0.87 [facility] Comment on above: Order Comment: Speci men Type: BLOOD SPECIMENOrdering Facility: [facility] Address: [address] [place] [address] Performed By: #### 5 7021-8 ####[facility] LABORATORYCLIA [id number] [place] [id number] [place] Monocytes/100 WBC (Bld) 5.1 % Normal [facility] Comment on above: Order Comment: Speci men Type: BLOOD SPECIMENOrdering Facility: [facility] Address: [address] [place] [address] Performed By: #### 5 7021-8 ####[facility] LABORATORYCLIA [id number] [place] [address] [place] Neutrophils (Bld) [#/Vol] 2.39 10*3/uL Normal 1.45-7.50 [facility] Comment on above: Order Comment: Speci men Type: BLOOD SPECIMENOrdering Facility: [facility] Address: [address] [place] [address] Performed By: #### 5 7021-8 ####[facility] LABORATORYCLIA [id number] [place] [id number] [place] Neutrophils/100 WBC (Bld) 50.8 % Normal [facility] Comment on above: Order Comment: Speci men Type: BLOOD SPECIMENOrdering Facility: [facility] Address: [address] [place] [address] Performed By: #### 5 7021-8 ####[facility] LABORATORYCLIA [id number] [place] [id number] [place] Nucleated RBC (Bld) [#/Vol] 10*3/uL Normal <0.01 [facility] Comment on above: Order Comment: Speci men Type: BLOOD SPECIMENOrdering Facility: [facility] Address: [address] [place] [address] Performed By: #### 5 7021-8 ####[facility]ORATORYCLIA [id number] [place] [id number] [place] Nucleated RBC/100 WBC (Bld) [Ratio] 0.0 /100 WBC Normal [facility] Comment on above: Order Comment: Speci men Type: BLOOD SPECIMENOrdering Facility: [facility] Address: [address] [place] [address] Performed By: #### 5 7021-8 ####[facility]ORATORYCLIA [id number] [place] [address] [place] Platelet mean volume (Bld) [Entitic vol] 11.4 fL Normal 9.0-12.7 [facility] Comment on above: Order Comment: Speci men Type: BLOOD SPECIMENOrdering Facility: [facility] Address: [address] [place] [address] Performed By: #### 5 7021-8 ####[facility]ORATORYCLIA [id number] [place] [address] [place] Platelets (Bld) [#/Vol] 233 10*3/uL Normal 150-400 [facility] Comment on above: Order Comment: Speci men Type: BLOOD SPECIMENOrdering Facility: [facility] Address: [address] [place] [address] Performed By: #### 5 7021-8 ####[facility]ORATORYCLIA [id number] [place] [id number] [place] RBC (Bld) [#/Vol] 3.88 10*6/uL Low 3.90-5.20 [facility] Comment on above: Order Comment: Speci men Type: BLOOD SPECIMENOrdering Facility: [facility] Address: [address] [place] [address] Performed By: #### 5 7021-8 ####[facility]ORATORYCLIA [id number] [place] [address] [place] WBC (Bld) [#/Vol] 4.71 10*3/uL Normal 3.70-11.00 [facility] Comment on above: Order Comment: Speci men Type: BLOOD SPECIMENOrdering Facility: [facility] Address: [address] [place] [address] Performed By: #### 5 7021-8 ####[facility] LABORATORYCLIA [id number] [place] [id number] [place] CNOVon 06-18-2023 CNOV Normal [facility] CONSULTon 06-18-2023 CONSULT Normal [facility] CT ABD/PEL W IVCONon 024 CT ABD/PEL W IVCON Normal [facility] Comprehensive metabolic 2000 panelon 06-18-2023 Albumin [Mass/Vol] 4.5 g/dL Normal 3.9-4.9 [facility] Comment on above: Order Comment: Speci men Type: BLOOD SPECIMENOrdering Facility: [facility] Address: [address] [place] [address] Performed By: #### 3 040-3, 34979-0, ####[facility]ORATORYCLIA [id number] [place] [id number] [place] ALP [Catalytic activity/Vol] 58 U/L Normal 34-123 [facility] Comment on above: Order Comment: Speci men Type: BLOOD SPECIMENOrdering Facility: [facility] Address: [address] [place] [address] Performed By: #### 3 040-3, 84329-4, ####[facility]ORATORYCLIA [id number] [place] [address] [place] ALT [Catalytic activity/Vol] 13 U/L Normal 7-38 [facility] Comment on above: Order Comment: Speci men Type: BLOOD SPECIMENOrdering Facility: [facility] Address: [address] [place] [address] Performed By: #### 3 040-3, 10586-0, ####[facility] LABORATORYCLIA [id number] [place] [address] [place] Anion gap [Moles/Vol] 13 mmol/L Normal 9-18 [facility] Comment on above: Order Comment: Speci men Type: BLOOD SPECIMENOrdering Facility: [facility] Address: [address] [place] [address] Performed By: #### 3 040-3, , ####[facility] LABORATORYCLIA [id number] [place] [id number] [place] AST [Catalytic activity/Vol] 31 U/L Normal 13-35 [facility] Comment on above: Order Comment: Speci men Type: BLOOD SPECIMENOrdering Facility: [facility] Address: [address] [place] [address] Performed By: #### 3 040-3, , ####[facility] LABORATORYCLIA [id number] [place] [id number] [place] Bilirubin [Mass/Vol] 0.4 mg/dL Normal 0.2-1.3 [facility] Comment on above: Order Comment: Speci men Type: BLOOD SPECIMENOrdering Facility: [facility] Address: [address] [place] [address] Performed By: #### 3 040-3, , ####[facility] LABORATORYCLIA [id number] [place] [id number] [place] Calcium [Mass/Vol] 9.0 mg/dL Normal 8.5-10.2 [facility] Comment on above: Order Comment: Speci men Type: BLOOD SPECIMENOrdering Facility: [facility] Address: [address] [place] [address] Performed By: #### 3 040-3, , ####[facility] LABORATORYCLIA [id number] [place] [id number] [place] Chloride [Moles/Vol] 103 mmol/L Normal 97-105 [facility] Comment on above: Order Comment: Speci men Type: BLOOD SPECIMENOrdering Facility: [facility] Address: [address] [place], [place] [address] Performed By: #### 3 040-3, 56569-6, ####[facility]ORATORYCLIA [id number] [place] [address] [place] CO2 [Moles/Vol] 22 mmol/L Normal 22-30 [facility] Comment on above: Order Comment: Speci men Type: BLOOD SPECIMENOrdering Facility: [facility] Address: [address] [place] [address] Performed By: #### 3 040-3, , ####[facility]ORATORYCLIA [id number] [place] [address] [place] Creatinine [Mass/Vol] 0.83 mg/dL Normal 0.58-0.96 [facility] Comment on above: Order Comment: Speci men Type: BLOOD SPECIMENOrdering Facility: [facility] Address: [address] [place] [address] Performed By: #### 3 040-3, , ####[facility]ORATORYCLIA [id number] [place] [id number] [place] Creatinine and Glomerular filtration rate.predicted panel (S/P/Bld) 95 mL/min/1.73m??? Normal >=60 [facility] Comment on above: Order Comment: Speci men Type: BLOOD SPECIMENOrdering Facility: [facility] Address: [address] [place] [address] Result Comment: Jessica mated Glomerular Filtration Rate [...] actual GFR. Performed By: #### 3 040-3, 66459-8, ####[facility]ORATORYCLIA [id number] [place] [address] [place] Glucose [Mass/Vol] 77 mg/dL Normal 74-99 [facility] Comment on above: Order Comment: Speci men Type: BLOOD SPECIMENOrdering Facility: [facility] Address: [address] [place] [address] Result Comment: The [place] [employer] (ADA) provides guidance for cutoff [...] Standards of Medical Care in Diabetes 2016, [place] [employer]. Diabetes Care. 2016.39(Suppl 1). Performed By: #### 3 040-3, , ####[facility] LABORATORYCLIA [id number] [place] [address] [place] Potassium [Moles/Vol] 3.4 mmol/L Low 3.7-5.1 [facility] Comment on above: Order Comment: Speci men Type: BLOOD SPECIMENOrdering Facility: [facility] Address: [address] [place] [address] Performed By: #### 3 040-3, , ####[facility]ORATORYCLIA [id number] [place] [id number] [place] Protein [Mass/Vol] 7.6 g/dL Normal 6.3-8.0 [facility] Comment on above: Order Comment: Speci men Type: BLOOD SPECIMENOrdering Facility: [facility] Address: [address] [place], [place] [address] Performed By: #### 3 040-3, , ####[facility]ORATORYCLIA [id number] [place] [id number] [place] Sodium [Moles/Vol] 138 mmol/L Normal 136-144 [facility] Comment on above: Order Comment: Speci men Type: BLOOD SPECIMENOrdering Facility: [facility] Address: [address] [place] [address] Performed By: #### 3 040-3, 75142-5, 66906-0 ####[facility]ORATORYCLIA [id number] [place] [id number] [place] Urea nitrogen [Mass/Vol] 12 mg/dL Normal 7-21 [facility] Comment on above: Order Comment: Speci men Type: BLOOD SPECIMENOrdering Facility: [facility] Address: [address] [place] [address] Performed By: #### 3 040-3, 98830-8, 61336-1 ####[facility]ORATORYCLIA [id number] [place] [id number] [place] ECG COMPLETEon 06-18-2023 ECG COMPLETE Normal [facility] ED NOTEon 06-18-2023 ED NOTE Normal [facility] ED NOTE HNO ID: [id number] Author: HIEU HERNANDEZ RN Service: ? Author Type: Registered Nurse Type: ED Notes Filed: 06/18/2023 19:05 Note Text: Patient verbalized understanding of discharge instructions and follow up care. Normal [facility] ED NOTE HNO ID: [id number] Author: HIEU HERNANDEZ RN Service: ? Author Type: Registered Nurse Type: ED Notes Filed: 06/18/2023 18:38 Note Text: Long catheter with leg bag inserted and orange juice given via peg tube given per Earnest INMAN verbal order. Normal [facility] ED PROV NOTEon 06-18-2023 ED PROV NOTE Normal [facility] HCG QUALITATIVEon 06-18-2023 HCG, QUALITATIVE Negative Normal Negative [facility] Comment on above: Order Comment: Speci men Type: BLOOD SPECIMENOrdering Facility: [facility] Address: [address] [place] [address] Performed By: #### H CG ####[facility] LABORATORYCLIA [id number] [place] [address] [place] Lipase SerPl-cCncon 06-18-19 24 Lipase [Catalytic activity/Vol] 31 U/L Normal 16-61 [facility] Comment on above: Order Comment: Speci men Type: BLOOD SPECIMENOrdering Facility: [facility] Address: [address] [place] [address] Performed By: #### 3 040-3, 53535-2, ####[facility]ORATORYCLIA [id number] [place] [id number] [place] Magnesium SerPl-mCncon 06-17 Magnesium [Mass/Vol] 2.0 mg/dL Normal 1.7-2.3 [facility] Comment on above: Order Comment: Speci men Type: BLOOD SPECIMENOrdering Facility: [facility] Address: [address] [place] [address] Performed By: #### 3 040-3, 12266-0, ####[facility]ORATORYCLIA [id number] [place] [address] [place] Urinalysis complete panel (U )on 06-18-2023 Bacteria LM.HPF (Urine sed) [#/Area] Rare Abnormal None Seen [facility] Comment on above: Order Comment: Speci men Type: URINE SPECIMENOrdering Facility: [facility] Address: [address] [place] [address] Performed By: #### 2 4356-8 ####[facility]ORATORYCLIA [id number] [place] [address] [place] Bilirubin Ql (U) Negative Normal Negative [facility] Comment on above: Order Comment: Speci men Type: URINE SPECIMENOrdering Facility: [facility] Address: [address] [place] [address] Performed By: #### 2 4356-8 ####[facility]ORATORYCLIA [id number] [place] [id number] [place] Clarity (Unsp spec) Clear Normal Clear [facility] Comment on above: Order Comment: Speci men Type: URINE SPECIMENOrdering Facility: [facility] Address: [address] [place] [address] Performed By: #### 2 4356-8 ####[facility]ORATORYCLIA [id number] [place] [address] [place] Color (U) Light Yellow Normal Yellow [facility] Comment on above: Order Comment: Speci men Type: URINE SPECIMENOrdering Facility: [facility] Address: [address] [place] [address] Performed By: #### 2 4356-8 ####[facility]ORATORYCLIA [id number] [place] [address] [place] Epithelial cells LM.HPF (Urine sed) [#/Area] Few Normal [facility] Comment on above: Order Comment: Speci men Type: URINE SPECIMENOrdering Facility: [facility] Address: [address] [place] [address] Performed By: #### 2 4356-8 ####[facility] LABORATORYCLIA [id number] [place] [address] [place] Glucose Test strip (U) [Mass/Vol] Negative Normal Trace, Negative [facility] Comment on above: Order Comment: Speci men Type: URINE SPECIMENOrdering Facility: [facility] Address: [address] [place] [address] Performed By: #### 2 4356-8 ####[facility] LABORATORYCLIA [id number] [place] [address] [place] Hemoglobin Ql (U) Negative Normal Negative, Trace [facility] Comment on above: Order Comment: Speci men Type: URINE SPECIMENOrdering Facility: [facility] Address: [address] [place] [address] Performed By: #### 2 4356-8 ####[facility] LABORATORYCLIA [id number] [place] [address] [place] Ketones Ql (U) Negative Normal Negative, Trace [facility] Comment on above: Order Comment: Speci men Type: URINE SPECIMENOrdering Facility: [facility] Address: [address] [place] [address] Performed By: #### 2 4356-8 ####[facility] LABORATORYCLIA [id number] [place] [address] [place] Leukocyte esterase Test strip Ql (U) Negative Normal Negative, 25 Patito/uL [facility] Comment on above: Order Comment: Speci men Type: URINE SPECIMENOrdering Facility: [facility] Address: [address] [place] [address] Performed By: #### 2 4356-8 ####[facility] LABORATORYCLIA [id number] [place] [address] [place] Nitrite Ql (U) Negative Normal Negative [facility] Comment on above: Order Comment: Speci men Type: URINE SPECIMENOrdering Facility: [facility] Address: [address] [place] [address] Performed By: #### 2 4356-8 ####[facility] LABORATORYCLIA [id number] [place] [address] [place] pH (U) 7.5 [pH] Normal 5.0-8.0 [facility] Comment on above: Order Comment: Speci men Type: URINE SPECIMENOrdering Facility: [facility] Address: [address] [place] [address] Performed By: #### 2 4356-8 ####[facility] LABORATORYCLIA [id number] [place] [address] [place] Protein (U) [Mass/Vol] Negative Normal Trace, Negative [facility] Comment on above: Order Comment: Speci men Type: URINE SPECIMENOrdering Facility: [facility] Address: [address] [place] [address] Performed By: #### 2 4356-8 ####[facility] LABORATORYCLIA [id number] [place] [address] [place] RBC LM.HPF (Urine sed) [#/Area] 0-3 /HPF Normal 0-3 /HPF [facility] Comment on above: Order Comment: Speci men Type: URINE SPECIMENOrdering Facility: [facility] Address: [address] [place] [address] Performed By: #### 2 4356-8 ####[facility] LABORATORYCLIA [id number] [place] [address] [place] Specific gravity (U) [Rel density] 1.009 Normal 1.005-1.030 [facility] Comment on above: Order Comment: Speci men Type: URINE SPECIMENOrdering Facility: [facility] Address: [address] [place] [address] Performed By: #### 2 4356-8 ####[facility]ORATORYCLIA [id number] [place] [address] [place] Urobilinogen Ql (U) Normal Normal Normal [facility] Comment on above: Order Comment: Speci men Type: URINE SPECIMENOrdering Facility: [facility] Address: [address] [place] [address] Performed By: #### 2 4356-8 ####[facility]ORATORYCLIA [id number] [place] [address] [place] WBC LM.HPF (Urine sed) [#/Area] 0-5 /HPF Normal 0-5 /HPF [facility] Comment on above: Order Comment: Speci men Type: URINE SPECIMENOrdering Facility: [facility] Address: [address] [place] [address] Performed By: #### 2 4356-8 ####[facility]ORATORYCLIA [id number] [place] [address] [place] CNPNon 06-17-2023 CNPN Normal [facility] Home Health Recordson 2023 Home Health Records [id number] B4#1.00TIFF Normal [facility] Physician Referralon 024 Physician Referral [id number] 101#1.00TIFF Normal [facility] Provider Letteron 06-16-2023 Provider Letter Normal [facility] CNPNon 06-15-2023 CNPN Normal [facility] ED Note-Physicianon 06-15-19 ED Note-Physician [id number] D0#1.00TIFF Normal [facility] Outside Hospital Correspo ndenceon 06-15-2023 Outside [facility] Correspondence [id number] A2#1.00TIFF Normal [facility] Physician Referralon 024 Physician Referral [id number]. [id number] 38#1.00TIFF Normal [facility] RAD - CT Reporton 06-15-2023 RAD - CT Report [id number] F9#1.00TIFF Normal [facility] Transfer Inon 06-15-2023 Transfer In [id number] 80#1.00TIFF Normal [facility] Ambulatory Visit Summaryon 0 06-14-2023 Ambulatory Visit Summary Normal [address] [place] [address]- \.br\ Medications\.br\ What How Much When Why [...] for choosing us for your care.\.br\ \.br\ [facility] Auth for Release of Medical Recordson 06-14-2023 Auth for Release of Medical Records [id number] E3#1.00TIFF Normal [facility] CNPNon 06-14-2023 CNPN Normal [facility] Family Medicine Office/Clini c Noteon 06-14-2023 Family Medicine Office/Clinic Note Normal [facility] Comment on above: Result Comment: Elec tronically Signed By: Jaquan Paula\.br\Date and Time Signed: 06/14/23 13:22 EDT Home Health Recordson 2023 Home Health Records [id number] E4#1.00TIFF [facility] Population Healthon 06-11-19 Population Health Normal [facility] Home Health Recordson 2023 Home Health Records [id number] 22#1.00TIFF [facility] Retail - Clinical Noteon Retail - Clinical Note [id number] F2#1.00TIFF [place] [facility] ALLIED HEALTHon 06-09-2023 ALLIED HEALTH Normal [facility] Basic metabolic 2000 panelon 06-09-2023 Anion gap [Moles/Vol] 7 mmol/L Low 9-18 [facility] Comment on above: Order Comment: Speci men Type: BLOOD SPECIMENOrdering Facility: [facility] Address: [address] [place] [address] Performed By: #### 2 4321-2 ####[facility] LABORATORYCLIA [id number] [facility] [place] [address] [place] Calcium [Mass/Vol] 8.6 mg/dL Normal 8.5-10.2 [facility] Comment on above: Order Comment: Speci men Type: BLOOD SPECIMENOrdering Facility: [facility] Address: [address] [place] [address] Performed By: #### 2 4321-2 ####[facility] LABORATORYCLIA [id number] [place] [address] [place] Chloride [Moles/Vol] 107 mmol/L High 97-105 [facility] Comment on above: Order Comment: Speci men Type: BLOOD SPECIMENOrdering Facility: [facility] Address: [address] [place] [address] Performed By: #### 2 4321-2 ####[facility] LABORATORYCLIA [id number] [place] [address] [place] CO2 [Moles/Vol] 24 mmol/L Normal 22-30 [facility] Comment on above: Order Comment: Speci men Type: BLOOD SPECIMENOrdering Facility: [facility] Address: [address] [place] [address] Performed By: #### 2 4321-2 ####[facility] LABORATORYCLIA [id number] [place] [address] [place] Creatinine [Mass/Vol] 0.68 mg/dL Normal 0.58-0.96 [facility] Comment on above: Order Comment: Speci men Type: BLOOD SPECIMENOrdering Facility: [facility] Address: [address] [place] [address] Performed By: #### 2 4321-2 ####[facility] LABORATORYIA [id number] [place] [address] [place] Creatinine and Glomerular filtration rate.predicted panel (S/P/Bld) 117 mL/min/1.73m??? Normal >=60 [facility] Comment on above: Order Comment: Speci men Type: BLOOD SPECIMENOrdering Facility: [facility] Address: [address] [place] [address] Result Comment: Jessica mated Glomerular Filtration Rate [...] By: #### 2 4321-2 ####[facility]OSPITALIA [id number] [place] [address] [place] Glucose [Mass/Vol] 89 mg/dL Normal 74-99 [facility] Comment on above: Order Comment: Lyssai men Type: BLOOD SPECIMENOrdering Facility: [facility] Address: [address] [place] [address] Result Comment: The [place] Diabetes Association (ADA) provides guidance for cutoff [...] Standards of Medical Care in Diabetes 2016, [place]. Diabetes Care. 2016.39(Suppl 1). Performed By: #### 2 4321-2 ####[facility]OSPITALIA [id number] [place] [address] [place] Potassium [Moles/Vol] 4.1 mmol/L Normal 3.7-5.1 [facility] Comment on above: Order Comment: Geraldo marrero Type: BLOOD SPECIMENOrdering Facility: [facility] Address: [address] [place] [address] Performed By: #### 2 4321-2 ####[facility] LABORATORYIA [id number] [place] [address] [place] Sodium [Moles/Vol] 138 mmol/L Normal 136-144 [facility] Comment on above: Order Comment: Geraldo men Type: BLOOD SPECIMENOrdering Facility: [facility] Address: [address] [id number] Performed By: #### 2 4321-2 ####[facility]OSPITALIA [id number] [facility] [place] [address] [place] Urea nitrogen [Mass/Vol] 10 mg/dL Normal 7- [facility] Comment on above: Order Comment: Speci men Type: BLOOD SPECIMENOrdering Facility: [facility] Address: [address] [place] [address] Performed By: #### 2 4321-2 ####[facility]OSPITALIA [id number] [place] [id number] [facility] [place] CASE MANAGEMon 06-09-2023 CASE MANAGEM Normal [facility] l CNDSon 06-09-2023 CNDS Normal [facility] CONSULT PROGon 06-08-2023 CONSULT PROG Normal [facility] TOXICOLOGY SCREEN, ROUTINE U RINEon 06-08-2023 Amphetamines Confirm (U) [Mass/Vol] Negative Normal Negative [facility] Comment on above: Order Comment: Speci men Type: URINE SPECIMENOrdering Facility: [facility] Address: [address] [place] [address] Result Comment: Cuto ff threshold at 1000 ng/mL. Performed By: #### U TOX2 ####[facility]OSPITALIA [id number] [place] [address] [place] BARBITURATES, URINE Negative Normal Negative [facility] Comment on above: Order Comment: Speci men Type: URINE SPECIMENOrdering Facility: [facility] Address: [address] [place] [address] Result Comment: Cuto ff threshold at 200 ng/mL. Performed By: #### U TOX2 ####[facility]ITALIA [id number] [place] [address] [place] BENZODIAZEPINES, UR Negative Normal Negative [facility] Comment on above: Order Comment: Speci men Type: URINE SPECIMENOrdering Facility: [facility] Address: [address] [place] [address] Result Comment: Cuto ff threshold at 200 ng/mL. Performed By: #### U TOX2 ####[facility] LABORATORYIA [id number] [place] [address] [place] Cannabinoids Screen Ql (U) Negative Normal Negative [facility] Comment on above: Order Comment: Speci men Type: URINE SPECIMENOrdering Facility: [facility] Address: [address] [place] [address] Result Comment: Cuto ff threshold at 50 ng/mL. Performed By: #### U TOX2 ####[facility] LABORATORYCLIA [id number] [place] [address] [place] Cocaine Ql (U) Negative Normal Negative [facility] Comment on above: Order Comment: Speci men Type: URINE SPECIMENOrdering Facility: [facility] Address: [address] [place] [address] Result Comment: Cuto ff threshold at 300 ng/mL. Performed By: #### U TOX2 ####[facility] LABORATORYCLIA [id number] [place] [address] [place] Ethanol (U) [Mass/Vol] <11 Normal <11 [facility] Comment on above: Order Comment: Speci men Type: URINE SPECIMENOrdering Facility: [facility] Address: [address] [place] [address] Performed By: #### U TOX2 ####[facility] LABORATORYIA [id number] [place] [id number] [place] Opiates Screen Ql (U) Negative Normal Negative [facility] Comment on above: Order Comment: Speci men Type: URINE SPECIMENOrdering Facility: [facility] Address: [address] [place] [address] Result Comment: Cuto ff threshold at 300 ng/mL. Performed By: #### U TOX2 ####[facility] LABORATORYIA [id number] [place] [id number] [place] oxyCODONE cutoff Screen (U) [Mass/Vol] Negative Normal Negative [facility] Comment on above: Order Comment: Speci men Type: URINE SPECIMENOrdering Facility: [facility] Address: [address] [place] [address] Result Comment: Cuto ff threshold at 100 ng/mL. Performed By: #### U TOX2 ####[facility] LABORATORYIA [id number] [place] [address] [place] Phencyclidine Ql (U) Negative Normal Negative [facility] Comment on above: Order Comment: Speci men Type: URINE SPECIMENOrdering Facility: [facility] Address: [address] [place] [address] Result Comment: Cuto ff threshold at 25 ng/mL. Performed By: #### U TOX2 ####[facility] LABORATORYIA [id number] [place] [address] [place] Basic metabolic 2000 panelon 06-07-2023 Anion gap [Moles/Vol] 9 mmol/L Normal 9-18 [facility] Comment on above: Order Comment: Speci men Type: BLOOD SPECIMENOrdering Facility: [facility] Address: [address] [place] [address] Performed By: #### 2 4321-2 ####[facility]ITALIA [id number] [place] [address] [place] Calcium [Mass/Vol] 8.7 mg/dL Normal 8.5-10.2 [facility]spital Comment on above: Order Comment: Speci men Type: BLOOD SPECIMENOrdering Facility: [facility] Address: [address] [place] [address] Performed By: #### 2 4321-2 ####[facility]ITALIA [id number] [place] [address] [place] Chloride [Moles/Vol] 108 mmol/L High 97-105 [facility] Comment on above: Order Comment: Speci men Type: BLOOD SPECIMENOrdering Facility: [facility] Address: [address] [place] [address] Performed By: #### 2 4321-2 ####[facility]ITALIA [id number] [place] [address] [place] CO2 [Moles/Vol] 23 mmol/L Normal 22-30 [facility] ital Comment on above: Order Comment: Speci men Type: BLOOD SPECIMENOrdering Facility: [facility] Address: [address] [place] [address] Performed By: #### 2 4321-2 ####[facility] LABORATORYIA [id number] [place] [address] [place] Creatinine [Mass/Vol] 0.68 mg/dL Normal 0.58-0.96 [facility] Comment on above: Order Comment: Geraldo men Type: BLOOD SPECIMENOrdering Facility: [facility] Address: [address] [place] [address] Performed By: #### 2 4321-2 ####[facility] LABORATORYIA [id number] [place] [address] [place] Creatinine and Glomerular filtration rate.predicted panel (S/P/Bld) 117 mL/min/1.73m??? Normal >=60 [facility] Comment on above: Order Comment: Geraldo men Type: BLOOD SPECIMENOrdering Facility: [facility] Address: [address] [place] [address] Result Comment: Jessica mated Glomerular Filtration Rate [...] actual GFR. Performed By: #### 2 4321-2 ####[facility] LABORATORYIA [id number] [place] [address] [place] Glucose [Mass/Vol] 98 mg/dL Normal 74-99 [facility] Comment on above: Order Comment: Geraldo marrero Type: BLOOD SPECIMENOrdering Facility: [facility] Address: [address] [place] [address] Result Comment: The [place] Diabetes Association (ADA) provides guidance for cutoff [...] Standards of Medical Care in Diabetes 2016, [place] [employer]. Diabetes Care. 2016.39(Suppl 1). Performed By: #### 2 4321-2 ####[facility]IA [id number] [place] [address] [place] Potassium [Moles/Vol] 4.2 mmol/L Normal 3.7-5.1 [facility] Comment on above: Order Comment: Geraldo marrero Type: BLOOD SPECIMENOrdering Facility: [facility] Address: [address] [place] [address] Performed By: #### 2 4321-2 ####[facility]IA [id number] [place] [address] [place] Sodium [Moles/Vol] 140 mmol/L Normal 136-144 [facility]spital Comment on above: Order Comment: Geraldo marrero Type: BLOOD SPECIMENOrdering Facility: [facility] Address: [address] [place] [address] Performed By: #### 2 4321-2 ####[facility]IA [id number] [place] [address] [place] Urea nitrogen [Mass/Vol] 9 mg/dL Normal 7-21 [facility] Comment on above: Order Comment: Lyssai men Type: BLOOD SPECIMENOrdering Facility: [facility] Address: [address] [place] [address] Performed By: #### 2 4321-2 ####[facility]ITALIA [id number] [place] [address] [place] CASE MGT INIT ASSESon 2023 CASE MGT INIT [facility] CBC panel Auto (Bld)on 06-06 Erythrocyte distribution width (RBC) [Ratio] 13.7 % Normal 11.5-15.0 [facility] Comment on above: Order Comment: Speci men Type: BLOOD SPECIMENOrdering Facility: [facility] Address: [address] [place] [address] Performed By: #### 5 8410-2 ####[facility] LABORATORYIA [id number] [address] [place] Hematocrit (Bld) [Volume fraction] 32.6 % Low 36.0-46.0 [facility] Comment on above: Order Comment: Speci men Type: BLOOD SPECIMENOrdering Facility: [facility] Address: [address] [place] [address] Performed By: #### 5 8410-2 ####[facility]ITALIA [id number] [place] [address] [place] Hemoglobin (Bld) [Mass/Vol] 10.8 g/dL Low 11.5-15.5 [facility] Comment on above: Order Comment: Speci men Type: BLOOD SPECIMENOrdering Facility: [facility] Address: [address] [place] [address] Performed By: #### 5 8410-2 ####[facility]IA [id number] [address] [place] MCH (RBC) [Entitic mass] 29.9 pg Normal 26.0-34.0 [facility] Comment on above: Order Comment: Speci men Type: BLOOD SPECIMENOrdering Facility: [facility] Address: [address] [place] [address] Performed By: #### 5 8410-2 ####[facility] LABORATORYIA [id number] [address] [place] MCHC (RBC) [Mass/Vol] 33.1 g/dL Normal 30.5-36.0 [facility] Comment on above: Order Comment: Speci men Type: BLOOD SPECIMENOrdering Facility: [facility] Address: [address] [place] [address] Performed By: #### 5 8410-2 ####[facility] LABORATORYCLIA [id number] [facility] [address] [place] MCV (RBC) [Entitic vol] 90.3 fL Normal 80.0-100.0 [facility] Comment on above: Order Comment: Speci men Type: BLOOD SPECIMENOrdering Facility: [facility] Address: [address] [place] [address] Performed By: #### 5 8410-2 ####[facility] LABORATORYIA [id number] [place] [address] [place] Nucleated RBC (Bld) [#/Vol] 10*3/uL Normal <0.01 [facility] Comment on above: Order Comment: Speci men Type: BLOOD SPECIMENOrdering Facility: [facility] Address: [address] [place] [address] Performed By: #### 5 8410-2 ####[facility]IA [id number] [facility] [address] [place] Platelet mean volume (Bld) [Entitic vol] 10.5 fL Normal 9.0-12.7 [facility] Comment on above: Order Comment: Speci men Type: BLOOD SPECIMENOrdering Facility: [facility] Address: [address] [place] [address] Performed By: #### 5 8410-2 ####[facility]IA [id number] [facility] [place] [address] [place] Platelets (Bld) [#/Vol] 258 10*3/uL Normal 150-400 [facility] Comment on above: Order Comment: Speci men Type: BLOOD SPECIMENOrdering Facility: [facility] Address: [address] [place] [address] Performed By: #### 5 8410-2 ####[facility] LABORATORYIA [id number] [facility] [place] [address] [place] RBC (Bld) [#/Vol] 3.61 10*6/uL Low 3.90-5.20 [facility] Comment on above: Order Comment: Speci men Type: BLOOD SPECIMENOrdering Facility: [facility] Address: [address] [place] [address] Performed By: #### 5 8410-2 ####[facility] LABORATORYCLIA [id number] [facility] [place] [address] [place] WBC (Bld) [#/Vol] 3.65 10*3/uL Low 3.70-11.00 [facility] Comment on above: Order Comment: Speci men Type: BLOOD SPECIMENOrdering Facility: [facility] Address: [address] [place] [address] Performed By: #### 5 8410-2 ####[facility] LABORATORYCLIA [id number] [facility] [place] [address] [place] CONSULTon 06-07-2023 CONSULT [facility] CONSULT Normal [facility] NUTRITIONon 06-07-2023 NUTRITION Normal [facility] CBC W Auto Differential pane l (Bld)on 06-06-2023 Basophils (Bld) [#/Vol] 0.05 10*3/uL Normal <0.11 [facility] Comment on above: Order Comment: Speci men Type: BLOOD SPECIMENOrdering Facility: [facility] Address: [address] [place] [address] Performed By: #### 5 7021-8 ####[facility] LABORATORYIA [id number] [facility] [place] [address] [place] Basophils/100 WBC (Bld) 1.0 % Normal [facility] Comment on above: Order Comment: Speci men Type: BLOOD SPECIMENOrdering Facility: [facility] Address: [address] [place] [address] Performed By: #### 5 7021-8 ####[facility] LABORATORYIA [id number] [place] [address] [place] Differential cell count method Nom (Bld) Auto Normal [facility] Comment on above: Order Comment: Speci men Type: BLOOD SPECIMENOrdering Facility: [facility] Address: [address] [place] [address] Performed By: #### 5 7021-8 ####[facility] LABORATORYCLIA [id number] [place] [id number] [place] Eosinophils (Bld) [#/Vol] 0.11 10*3/uL Normal <0.46 [facility] Comment on above: Order Comment: Speci men Type: BLOOD SPECIMENOrdering Facility: [facility] Address: [address] [place] [address] Performed By: #### 5 7021-8 ####[facility] LABORATORYCLIA [id number] [place] [address] [place] Eosinophils/100 WBC (Bld) 2.2 % Normal [facility] Comment on above: Order Comment: Speci men Type: BLOOD SPECIMENOrdering Facility: [facility] Address: [address] [place] [address] Performed By: #### 5 7021-8 ####[facility]IA [id number] [address] [place] Erythrocyte distribution width (RBC) [Ratio] 13.4 % Normal 11.5-15.0 [facility] Comment on above: Order Comment: Speci men Type: BLOOD SPECIMENOrdering Facility: [facility] Address: [address] [place] [address] Performed By: #### 5 7021-8 ####[facility]IA [id number] [place] [address] [place] Hematocrit (Bld) [Volume fraction] 35.9 % Low 36.0-46.0 [facility] Comment on above: Order Comment: Speci men Type: BLOOD SPECIMENOrdering Facility: [facility] Address: [address] [place] [address] Performed By: #### 5 7021-8 ####[facility] LABORATORYIA [id number] [place] [id number] [place] Hemoglobin (Bld) [Mass/Vol] 12.2 g/dL Normal 11.5-15.5 [facility] Comment on above: Order Comment: Speci men Type: BLOOD SPECIMENOrdering Facility: [facility] Address: [address] [place] [address] Performed By: #### 5 7021-8 ####[facility]IA [id number] [place] [address] [place] Immature granulocytes (Bld) [#/Vol] 10*3/uL Normal <0.10 [facility] Comment on above: Order Comment: Speci men Type: BLOOD SPECIMENOrdering Facility: [facility] Address: [address] [place] [address] Performed By: #### 5 7021-8 ####[facility]IA [id number] [place] [address] [place] Immature granulocytes/100 WBC (Bld) 0.2 % Normal [facility] Comment on above: Order Comment: Speci men Type: BLOOD SPECIMENOrdering Facility: [facility] Address: [address] [place] [address] Performed By: #### 5 7021-8 ####[facility]IA [id number] [place] [address] [place] Lymphocytes (Bld) [#/Vol] 1.70 10*3/uL Normal 1.00-4.00 [facility] Comment on above: Order Comment: Speci men Type: BLOOD SPECIMENOrdering Facility: [facility] Address: [address] [place] [address] Performed By: #### 5 7021-8 ####[facility]IA [id number] [place] [address] [place] Lymphocytes/100 WBC (Bld) 33.3 % Normal [facility] Comment on above: Order Comment: Speci men Type: BLOOD SPECIMENOrdering Facility: [facility] Address: [address] [place] [address] Performed By: #### 5 7021-8 ####[facility] LABORATORYIA [id number] [place] [address] [place] MCH (RBC) [Entitic mass] 30.1 pg Normal 26.0-34.0 [facility] Comment on above: Order Comment: Speci men Type: BLOOD SPECIMENOrdering Facility: [facility] Address: [address] [place] [address] Performed By: #### 5 7021-8 ####[facility] LABORATORYCLIA [id number] [place] [address] [place] MCHC (RBC) [Mass/Vol] 34.0 g/dL Normal 30.5-36.0 [facility] Comment on above: Order Comment: Speci men Type: BLOOD SPECIMENOrdering Facility: [facility] Address: [address] [place] [address] Performed By: #### 5 7021-8 ####[facility]IA [id number] [place] [address] [place] MCV (RBC) [Entitic vol] 88.6 fL Normal 80.0-100.0 [facility] Comment on above: Order Comment: Speci men Type: BLOOD SPECIMENOrdering Facility: [facility] Address: [address] [place] [address] Performed By: #### 5 7021-8 ####[facility]IA [id number] [place] [address] [place] Monocytes (Bld) [#/Vol] 0.42 10*3/uL Normal <0.87 [facility] Comment on above: Order Comment: Speci men Type: BLOOD SPECIMENOrdering Facility: [facility] Address: [address] [place] [address] Performed By: #### 5 7021-8 ####[facility] LABORATORYIA [id number] [address] [place] Monocytes/100 WBC (Bld) 8.2 % Normal [facility] Comment on above: Order Comment: Speci men Type: BLOOD SPECIMENOrdering Facility: [facility] Address: [address] [place] [address] Performed By: #### 5 7021-8 ####[facility] LABORATORYCLIA [id number] [facility] [address] [place] Neutrophils (Bld) [#/Vol] 2.81 10*3/uL Normal 1.45-7.50 [facility] Comment on above: Order Comment: Speci men Type: BLOOD SPECIMENOrdering Facility: [facility] Address: [address] [place] [address] Performed By: #### 5 7021-8 ####[facility] LABORATORYIA [id number] [place] [address] [place] Neutrophils/100 WBC (Bld) 55.1 % Normal [facility] Comment on above: Order Comment: Speci men Type: BLOOD SPECIMENOrdering Facility: [facility] Address: [address] [place] [address] Performed By: #### 5 7021-8 ####[facility] [id number] [place] [id number] [place] Nucleated RBC (Bld) [#/Vol] 10*3/uL Normal <0.01 [facility] Comment on above: Order Comment: Speci men Type: BLOOD SPECIMENOrdering Facility: [facility] Address: [address] [place] [address] Performed By: #### 5 7021-8 ####[facility]ITALIA [id number] [place] [address] [place] Nucleated RBC/100 WBC (Bld) [Ratio] 0.0 /100 WBC Normal [facility] Comment on above: Order Comment: Speci men Type: BLOOD SPECIMENOrdering Facility: [facility] Address: [address] [place] [address] Performed By: #### 5 7021-8 ####[facility] [id number] [place] [address] [place] Platelet mean volume (Bld) [Entitic vol] 10.3 fL Normal 9.0-12.7 [facility] Comment on above: Order Comment: Speci men Type: BLOOD SPECIMENOrdering Facility: [facility] Address: [address] [place], [place] [address] Performed By: #### 5 7021-8 ####[facility] LABORATORYIA [id number] [place] [address] [place] Platelets (Bld) [#/Vol] 323 10*3/uL Normal 150-400 [facility] Comment on above: Order Comment: Speci men Type: BLOOD SPECIMENOrdering Facility: [facility] Address: [address] [place] [address] Performed By: #### 5 7021-8 ####[facility] [id number] [place] [address] [place] RBC (Bld) [#/Vol] 4.05 10*6/uL Normal 3.90-5.20 [facility] Comment on above: Order Comment: Speci men Type: BLOOD SPECIMENOrdering Facility: [facility] Address: [address] [place] [address] Performed By: #### 5 7021-8 ####[facility] [id number] [place] [address] [place] WBC (Bld) [#/Vol] 5.10 10*3/uL Normal 3.70-11.00 [facility] Comment on above: Order Comment: Speci men Type: BLOOD SPECIMENOrdering Facility: [facility] Address: [address] [place] [address] Performed By: #### 5 7021-8 ####[facility] [id number] [place] [address] [place] CT ABD/PEL W IVCONon 024 CT ABD/PEL W IVCON Normal [facility] Comprehensive metabolic 2000 panelon 06-06-2023 Albumin [Mass/Vol] 4.3 g/dL Normal 3.9-4.9 [facility] Comment on above: Order Comment: Speci men Type: BLOOD SPECIMENOrdering Facility: [facility] Address: [address] [place] [address] Performed By: #### 2 4323-8, 0-3, ####[facility] LABORATORYCLIA [id number] [facility] [place] [address] [place] ALP [Catalytic activity/Vol] 62 U/L Normal 34-123 [facility] Comment on above: Order Comment: Speci men Type: BLOOD SPECIMENOrdering Facility: [facility] Address: [address] [place] [address] Performed By: #### 2 4323-8, 0-3, ####[facility] LABORATORYCLIA [id number] [place] [address] [place] ALT [Catalytic activity/Vol] 16 U/L Normal 7-38 [facility] Comment on above: Order Comment: Speci men Type: BLOOD SPECIMENOrdering Facility: [facility] Address: [address] [place] [address] Performed By: #### 2 4323-8, 3, ####[facility] [id number] [facility] [place] [address] [place] Anion gap [Moles/Vol] 10 mmol/L Normal 9-18 [facility] Comment on above: Order Comment: Speci men Type: BLOOD SPECIMENOrdering Facility: [facility] Address: [address] [place] [address] Performed By: #### 2 4323-8, 3, ####[facility] LABORATORYCLIA [id number] [facility] [place] [address] [place] AST [Catalytic activity/Vol] 28 U/L Normal 13-35 [facility] Comment on above: Order Comment: Speci men Type: BLOOD SPECIMENOrdering Facility: [facility] Address: [address] [place] [address] Performed By: #### 2 4323-8, 0-3, ####[facility] LABORATORYCLIA [id number] [facility] [place] [address] [place] Bilirubin [Mass/Vol] 0.3 mg/dL Normal 0.2-1.3 [facility] Comment on above: Order Comment: Speci men Type: BLOOD SPECIMENOrdering Facility: [facility] Address: [address] [place] [address] Performed By: #### 2 4323-8, 3039-3, ####[facility] LABORATORYCLIA [id number] [place] [address] [place] Calcium [Mass/Vol] 9.1 mg/dL Normal 8.5-10.2 [facility] Comment on above: Order Comment: Speci men Type: BLOOD SPECIMENOrdering Facility: [facility] Address: [address] [place] [address] Performed By: #### 2 4323-8, 3, ####[facility] LABORATORYCLIA [id number] [place] [address] [place] Chloride [Moles/Vol] 103 mmol/L Normal 97-105 [facility] Comment on above: Order Comment: Speci men Type: BLOOD SPECIMENOrdering Facility: [facility] Address: [address] [place] [address] Performed By: #### 2 4323-8, 3, ####[facility] LABORATORYCLIA [id number] [place] [address] [place] CO2 [Moles/Vol] 23 mmol/L Normal 22-30 [facility] ital Comment on above: Order Comment: Speci men Type: BLOOD SPECIMENOrdering Facility: [facility] Address: [address] [place] [address] Performed By: #### 2 4323-8, 3, ####[facility] LABORATORYCLIA [id number] [place] [address] [place] Creatinine [Mass/Vol] 0.74 mg/dL Normal 0.58-0.96 [facility] Comment on above: Order Comment: Speci men Type: BLOOD SPECIMENOrdering Facility: [facility] Address: [address] [place] [address] Performed By: #### 2 4323-8, 3040-3, ####[facility] LABORATORYIA [id number] [place] [address] [place] Creatinine and Glomerular filtration rate.predicted panel (S/P/Bld) 109 mL/min/1.73m??? Normal >=60 [facility] Comment on above: Order Comment: Geraldo marrero Type: BLOOD SPECIMENOrdering Facility: [facility] Address: [address] [place] [address] Result Comment: Jessica mated Glomerular Filtration Rate [...] GFR. Performed By: #### 2 4323-8, 3040-3, ####[facility] LABORATORYIA [id number] [facility] [place] [address] [place] Glucose [Mass/Vol] 91 mg/dL Normal 74-99 [facility] Comment on above: Order Comment: Geraldo marrero Type: BLOOD SPECIMENOrdering Facility: [facility] Address: [address] [place] [address] Result Comment: The [place] Diabetes Association (ADA) provides guidance for cutoff [...] Standards of Medical Care in Diabetes 2016, [place] [employer]. Diabetes Care. 2016.39(Suppl 1). Performed By: #### 2 4323-8, 0-3, ####[facility] LABORATORYCLIA [id number] [place] [address] [place] Potassium [Moles/Vol] 4.0 mmol/L Normal 3.7-5.1 [facility] Comment on above: Order Comment: Speci men Type: BLOOD SPECIMENOrdering Facility: [facility] Address: [address] [place] [address] Performed By: #### 2 4323-8, 3039-3, ####[facility] LABORATORYCLIA [id number] [place] [address] [place] Protein [Mass/Vol] 7.4 g/dL Normal 6.3-8.0 [facility] Comment on above: Order Comment: Speci men Type: BLOOD SPECIMENOrdering Facility: [facility] Address: [address] [place] [address] Performed By: #### 2 4323-8, 3, ####[facility] [id number] [place] [address] [place] Sodium [Moles/Vol] 136 mmol/L Normal 136-144 [facility] Comment on above: Order Comment: Speci men Type: BLOOD SPECIMENOrdering Facility: [facility] Address: [address] [place] [address] Performed By: #### 2 4323-8, 3, ####[facility] LABORATORYIA [id number] [place] [address] [place] Urea nitrogen [Mass/Vol] 14 mg/dL Normal 7-21 [facility] Comment on above: Order Comment: Speci men Type: BLOOD SPECIMENOrdering Facility: [facility] Address: [address] [place] [address] Performed By: #### 2 4323-8, 0-3, ####[facility] LABORATORYCLIA [id number] [place] [address] [place] ECG COMPLETEon 06-06-2023 ECG COMPLETE Normal [facility] 06-06-2023 ED NOTE Normal [facility] ED NOTE Normal [facility] ED PROV NOTEon 06-06-2023 ED PROV NOTE Normal [facility] FLUABV+SARS-CoV-2+RSV Pnl Re sp HANK+probeon 06-06-2023 FLUABV+SARS-CoV-2+R SV Pnl Resp HANK+probe Normal [facility] Comment on above: Performed By: #### 9 5941-1 ####[facility] LABORATORYCLIA [id number] [facility] [place] [address] [place] HISTORY PHYSICALon HISTORY PHYSICAL Normal [facility] Lipase SerPl-cCncon 06-06-19 24 Lipase [Catalytic activity/Vol] 75 U/L High 16-61 [facility] Comment on above: Order Comment: Speci men Type: BLOOD SPECIMENOrdering Facility: [facility] Address: [address] [place] [address] Performed By: #### 2 4323-8, 3040-3, ####[facility] [id number] [place] [address] [place] Magnesium SerPl-mCncon 06-05 Magnesium [Mass/Vol] 2.1 mg/dL Normal 1.7-2.3 [facility] Comment on above: Order Comment: Speci men Type: BLOOD SPECIMENOrdering Facility: [facility] Address: [address] [place] [address] Performed By: #### 2 4323-8, 3040-3, ####[facility] [id number] [place] [address] [facility] [place] Urinalysis complete panel (U )on 06-06-2023 Bilirubin Ql (U) Negative Normal Negative [facility] Comment on above: Order Comment: Speci men Type: URINE SPECIMENOrdering Facility: [facility] Address: [address] [place] [address] Performed By: #### 2 4356-8 ####[facility] [id number] [place] [address] [place] Clarity (Unsp spec) Clear Normal Clear [facility] Comment on above: Order Comment: Speci men Type: URINE SPECIMENOrdering Facility: [facility] Address: [address] [place] [address] Performed By: #### 2 4356-8 ####[facility] [id number] [place] [address] [place] Color (U) Light Yellow Normal yellow [facility] l Comment on above: Order Comment: Speci men Type: URINE SPECIMENOrdering Facility: [facility] Address: [address] [place] [address] Performed By: #### 2 4356-8 ####[facility] [id number] [place] [id number] [place] Epithelial cells LM.HPF (Urine sed) [#/Area] Few Normal [facility] Comment on above: Order Comment: Speci men Type: URINE SPECIMENOrdering Facility: [facility] Address: [address] [place] [address] Performed By: #### 2 4356-8 ####[facility] [id number] [place] [address] [place] Glucose Test strip (U) [Mass/Vol] Negative Normal Trace, Negative [facility] Comment on above: Order Comment: Speci men Type: URINE SPECIMENOrdering Facility: [facility] Address: [address] [place] [address] Performed By: #### 2 4356-8 ####[facility] [id number] [place] [id number] [place] Hemoglobin Ql (U) Negative Normal Negative, Trace [facility] Comment on above: Order Comment: Speci men Type: URINE SPECIMENOrdering Facility: [facility] Address: [address] [place] [address] Performed By: #### 2 4356-8 ####[facility] [id number] [place] [address] [place] Ketones Ql (U) Negative Normal Negative, Trace [facility] Comment on above: Order Comment: Speci men Type: URINE SPECIMENOrdering Facility: [facility] Address: [address] [place] [address] Performed By: #### 2 4356-8 ####[facility] [id number] [place] [address] [place] Leukocyte esterase Test strip Ql (U) Negative Normal Negative, 25 Pat[place]/uL [facility] Comment on above: Order Comment: Speci men Type: URINE SPECIMENOrdering Facility: [facility] Address: [address] [place] [address] Performed By: #### 2 4356-8 ####[facility] [id number] [place] [address] [place] Nitrite Ql (U) Negative Normal Negative [facility] Comment on above: Order Comment: Speci men Type: URINE SPECIMENOrdering Facility: [facility] Address: [address] [place] [address] Performed By: #### 2 4356-8 ####[facility] [id number] [place] [address] [place] pH (U) 7.0 [pH] Normal 5.0-8.0 [facility] Comment on above: Order Comment: Speci men Type: URINE SPECIMENOrdering Facility: [facility] Address: [address] [place] [address] Performed By: #### 2 4356-8 ####[facility] [id number] [place] [id number] [place] Protein (U) [Mass/Vol] Trace Normal Trace, Negative [facility] Comment on above: Order Comment: Speci men Type: URINE SPECIMENOrdering Facility: [facility] Address: [address] [place] [address] Performed By: #### 2 4356-8 ####[facility] [id number] [place] [address] [place] RBC LM.HPF (Urine sed) [#/Area] 3-5 /HPF Abnormal 0-3 /HPF [facility] Comment on above: Order Comment: Speci men Type: URINE SPECIMENOrdering Facility: [facility] Address: [address] [place] [address] Performed By: #### 2 4356-8 ####[facility] [id number] [place] [address] [place] Specific gravity (U) [Rel density] 1.024 Normal 1.005-1.030 [facility] Comment on above: Order Comment: Speci men Type: URINE SPECIMENOrdering Facility: [facility] Address: [address] [place] [address] Performed By: #### 2 4356-8 ####[facility] [id number] [place] [id number] [facility] Urobilinogen Ql (U) Normal Normal Normal [facility] Comment on above: Order Comment: Speci men Type: URINE SPECIMENOrdering Facility: [facility] Address: [address] [place] [address] Performed By: #### 2 4356-8 ####[facility] [id number] [place] [id number] [place] WBC LM.HPF (Urine sed) [#/Area] 0-5 /HPF Normal 0-5 /HPF [facility] Comment on above: Order Comment: Speci men Type: URINE SPECIMENOrdering Facility: [facility] Address: [address] [place] [address] Performed By: #### 2 4356-8 ####[facility] [id number] [place] [address] [place] ED Note-Physicianon 06-04-19 ED Note-Physician [id number] 4B#1.00TIFF Normal [facility] Ambulatory Visit Summaryon 0 06-02-2023 Ambulatory Visit Summary Normal [address] [place] [address]- \.br\ Medications\.br\ What How Much When Why [...] for choosing us for your care.\.br\ \.br\ [facility] Family Medicine Office/Clini c Noteon 06-02-2023 Family Medicine Office/Clinic Note Normal [facility] Comment on above: Result Comment: Elec tronically Signed By: Jaquan Paula\.br\Date and Time Signed: 06/02/23 12:30 EDT Provider Letteron 06-02-2023 Provider Letter Normal [facility] Provider Letter Normal [facility] Population Healthon 05-31-19 Population Health Normal [facility] Alanine aminotransferase [En zymatic activity/volume] in Serum or PlasmaOrdered By: Gabino Parker on 05-30-2023 ALT [Catalytic activity/Vol] 11 U/L Normal 7-52 [facility] Comment on above: Performed By: #### H EPATIC, MG, LIPASE, CMP, CBC #### [address] Albumin [Mass/volume] in Ser um or Plasma by Bromocresol green (BCG) dye binding methoOrdered By: Gabino Parker on 05-30-2023 Albumin BCG dye [Mass/Vol] 4.1 g/dL 3.5-5.7 [facility] Alkaline phosphatase [Enzyma tic activity/volume] in Serum or PlasmaOrdered By: Gabino Parker on 05-30-2023 ALP [Catalytic activity/Vol] 56 U/L Normal 34-104 [facility] Comment on above: Performed By: #### H EPATIC, MG, LIPASE, CMP, CBC #### [address] Aspartate aminotransferase [ Enzymatic activity/volume] in Serum or PlasmaOrdered By: Gabino Parker on 05-30-2023 AST [Catalytic activity/Vol] 22 U/L Normal 13-39 [facility] Comment on above: Performed By: #### H EPATIC, MG, LIPASE, CMP, CBC #### [address] Automated basophil %Ordered By: Gabino Parker on 05-30-2023 Basophils/100 WBC (Bld) 0.4 % Normal . [facility] Comment on above: Performed By: #### H EPATIC, MG, LIPASE, CMP, CBC #### [address] Automated basophil countOrde red By: Gabino Parker on 05-30-2023 Basophils (Bld) [#/Vol] 0.0 10*3/uL Normal 0.0-0.2 [facility] Comment on above: Result Comment: PERF ORMED BY: [place] [address] PATHOLOGIST [employer]KE DECORATOR BAUTISTA BAKER M.D. Performed By: #### H EPATIC, MG, LIPASE, CMP, CBC #### [address] [address] [place] Automated blood monocyte cou ntOrdered By: Gabino Parker on 05-30-2023 Monocytes (Bld) [#/Vol] 0.4 10*3/uL Normal 0.0-0.8 [facility] Comment on above: Performed By: #### H EPATIC, MG, LIPASE, CMP, CBC #### [facility] [address] [place] [address] Automated eosinophil %Ordere d By: Gabino Parker on 05-30-2023 Eosinophils/100 WBC (Bld) 0.4 % Normal . [facility] Comment on above: Performed By: #### H EPATIC, MG, LIPASE, CMP, CBC #### [facility] [address] [place] [address] Automated eosinophil countOr dered By: Gabino Parker on 05-30-2023 Eosinophils (Bld) [#/Vol] 0.0 10*3/uL Normal 0.0-0.45 [facility] Comment on above: Performed By: #### H EPATIC, MG, LIPASE, CMP, CBC #### [facility] [address] [place] [address] Automated erythrocytes count in urine sediment (number/area)Ordered By: Gabino Parker on 05-30-2023 RBC Auto (Urine sed) [#/Area] 3-4 [HPF] 0-4 [facility] Automated leukocytes count i n urine sediment (number/area)Ordered By: Gabino Parker on 05-30-2023 WBC Auto (Urine sed) [#/Area] 5-9 [HPF] High 0-4 [facility] Automated monocyte %Ordered By: Gabino Parker on 05-30-2023 Monocytes/100 WBC (Bld) 4.5 % Normal . [facility] Comment on above: Performed By: #### H EPATIC, MG, LIPASE, CMP, CBC #### [facility] [address] [place] [address] Automated neutrophil %Ordere d By: Gabino Parker on 05-30-2023 Neutrophils/100 WBC (Bld) 79.0 % Normal . [facility] Comment on above: Performed By: #### H EPATIC, MG, LIPASE, CMP, CBC #### [facility] [address] Automated urine color determ inationOrdered By: Gabino Parker on 05-30-2023 Color (U) Yellow Normal Yellow [facility] Comment on above: Order Comment: Name Collection Type:: Clean-Voided Midstream Performed By: #### A DDONUAPLUS, UHCG, CUU #### [facility] [address] [place] [address] Bilirubin Test strip Ql (U)O rdered By: Gabino Parker on 05-30-2023 Bilirubin Ql (U) Negative Negative [facility] Bilirubin.direct [Mass/volum e] in Serum or PlasmaOrdered By: Gabino Parker on 05-30-2023 Bilirubin.direct [Mass/Vol] 0.10 mg/dL 0.03-0.18 [facility] Bilirubin.total [Mass/volume ] in Serum or PlasmaOrdered By: Gabino Parker on 05-30-2023 Bilirubin [Mass/Vol] 0.4 mg/dL Normal 0.3-1.0 [facility] Comment on above: Performed By: #### H EPATIC, MG, LIPASE, CMP, CBC #### [facility] [address] [place] [address] CNPNon 05-30-2023 CNPN Normal [facility] CT abdomen pelvis w conon CT abdomen pelvis w [place] [address] CT Scan Report Signed Patient: Abbey Garcia MR#: [id number] : 1990 Acct:[id number] Age/Sex: 33 / F ADM Date: 05/30/23 Loc: ER Room: Type: [facility] ER Attending Dr: Copies to: Gabino Parker [...] Melisa Hutchinson M.D.05/30/2023 5:49 PM Dictation Location: [place] [address] Transcribed By: [facility] 05/30/231748 Dictated By: Melisa Hutchinson II, MD 05/30/231739 Signed By: 05/30/231748 Normal [facility] Calcium [Mass/volume] in Ser um or PlasmaOrdered By: Gabino Parker on 05-30-2023 Calcium [Mass/Vol] 9.3 mg/dL Normal 8.6-10.3 [facility] Comment on above: Performed By: #### H EPATIC, MG, LIPASE, CMP, CBC #### [address] Carbon dioxide, total [Moles /volume] in Serum or PlasmaOrdered By: Gabino Parker on 05-30-2023 CO2 [Moles/Vol] 27.7 mmol/L Normal 21.0-31.0 [facility] Comment on above: Performed By: #### H EPATIC, MG, LIPASE, CMP, CBC #### [address] Chloride [Moles/volume] in S elder or PlasmaOrdered By: Gabino Parker on 05-30-2023 Chloride [Moles/Vol] 103 mmol/L Normal 98-107 [facility] Comment on above: Performed By: #### H EPATIC, MG, LIPASE, CMP, CBC #### [address] Complete Blood Count Auto Di ffon 05-30-2023 Mean Corpuscular HGB Conc 33.8 g/dL Normal 32.0-35.0 [facility] Comment on above: Performed By: #### H EPATIC, MG, LIPASE, CMP, CBC #### [address] Monocytes/100 WBC (Bld) 16.47 % Normal 0.00-20.00 [facility] Comment on above: Performed By: #### H EPATIC, MG, LIPASE, CMP, CBC #### [address] NRBC% 0.1 /100{WBC} Normal 0-0.5 [facility] Comment on above: Performed By: #### H EPATIC, MG, LIPASE, CMP, CBC #### [address] Comprehensive Metabolic Pane nestor 05-30-2023 Albumin [Mass/Vol] 4.1 g/dL Normal 3.5-5.7 [facility] Comment on above: Performed By: #### H EPATIC, MG, LIPASE, CMP, CBC #### [place] [id number] [place] Creatinine [facility] 118.42 Normal [facility] Comment on above: Performed By: #### H EPATIC, MG, LIPASE, CMP, CBC #### [address] GFR/1.73 sq M.predicted MDRD (S/P/Bld) [Vol rate/Area] mL/min/{1.73_m2} Normal [facility] Comment on above: Performed By: #### H EPATIC, MG, LIPASE, CMP, CBC #### [address] Creatinine [Mass/volume] in Serum or PlasmaOrdered By: Gabino Parker on 05-30-2023 Creatinine [Mass/Vol] 0.70 mg/dL Normal 0.60-1.20 [facility] Comment on above: Performed By: #### H EPATIC, MG, LIPASE, CMP, CBC #### [address] Dipstick and Microscopicon 0 05-30-2023 Appearance (U) Clear Normal Clear [facility] Comment on above: Order Comment: Name Collection Type:: Clean-Voided Midstream Performed By: #### A DDONUAPLUS, UHCG, CUU #### [address] Bacteria,Urine None Seen Normal None Seen [facility] Comment on above: Order Comment: Name Collection Type:: Clean-Voided Midstream Performed By: #### A DDONUAPLUS, UHCG, CUU #### [address] [address] Bilirubin,Urine Negative Normal Negative [facility] Comment on above: Order Comment: Name Collection Type:: Clean-Voided Midstream Performed By: #### A DDONUAPLUS, UHCG, CUU #### [address] Glucose Ql (U) Normal Normal Normal [facility] Comment on above: Order Comment: Name Collection Type:: Clean-Voided Midstream Performed By: #### A DDONUAPLUS, UHCG, CUU #### [place] [address] [place] Hyaline Casts,Urine 0-8 Normal 0-8 [facility] Comment on above: Order Comment: Name Collection Type:: Clean-Voided Midstream Performed By: #### A DDONUAPLUS, UHCG, CUU #### [place] [address] [place] Ketones Ql (U) Negative Normal Negative [facility] Comment on above: Order Comment: Name Collection Type:: Clean-Voided Midstream Performed By: #### A DDONUAPLUS, UHCG, CUU #### [place] [address] [place] Leukocyte esterase Test strip Ql (U) 1+ High Negative [facility] Comment on above: Order Comment: Name Collection Type:: Clean-Voided Midstream Performed By: #### A DDONUAPLUS, UHCG, CUU #### [place] [address] [place] Nitrite,Urine Negative Normal Negative [facility] Comment on above: Order Comment: Name Collection Type:: Clean-Voided Midstream Performed By: #### A DDONUAPLUS, UHCG, CUU #### [place] [id number] [place] Occult Blood,Urine Negative Normal Negative [facility] Comment on above: Order Comment: Name Collection Type:: Clean-Voided Midstream Performed By: #### A DDONUAPLUS, UHCG, CUU #### [place] [address] [place] Protein,Urine Negative Normal Negative [facility] Comment on above: Order Comment: Name Collection Type:: Clean-Voided Midstream Performed By: #### A DDONUAPLUS, UHCG, CUU #### [place] [id number] [place] RBC,Urine 3-4 Normal 0-4 [facility] Comment on above: Order Comment: Name Collection Type:: Clean-Voided Midstream Performed By: #### A DDONUAPLUS, UHCG, CUU #### [address] Specificy [place],Urine 1.011 Normal 1.001-1.030 [facility] Comment on above: Order Comment: Name Collection Type:: Clean-Voided Midstream Performed By: #### A DDONUAPLUS, UHCG, CUU #### [address] Squamous Epithelial Cell,Urine 0-1 Normal 0-2 [facility] Comment on above: Order Comment: Name Collection Type:: Clean-Voided Midstream Performed By: #### A DDONUAPLUS, UHCG, CUU #### [address] Urobilinogen,Urine Normal Normal Normal [facility] Comment on above: Order Comment: Name Collection Type:: Clean-Voided Midstream Performed By: #### A DDONUAPLUS, UHCG, CUU #### [address] WBC,Urine 5-9 High 0-4 [facility] Comment on above: Order Comment: Name Collection Type:: Clean-Voided Midstream Performed By: #### A DDONUAPLUS, UHCG, CUU #### [address] Erythrocyte distribution wid th [Ratio] by Automated countOrdered By: Gabino Parker on 05-30-2023 Erythrocyte distribution width (RBC) [Ratio] 15.5 % High 11.9-15.3 [facility] Comment on above: Performed By: #### H EPATIC, MG, LIPASE, CMP, CBC #### [address] Erythrocytes [#/volume] in B lood by Automated countOrdered By: Gabino Parker on 05-30-2023 RBC (Bld) [#/Vol] 3.86 10*6/uL Normal 3.60-5.00 [facility] Comment on above: Performed By: #### H EPATIC, MG, LIPASE, CMP, CBC #### [address] Glucose [Mass/volume] in Ser um or PlasmaOrdered By: Gabino Parker on 05-30-2023 Glucose [Mass/Vol] 81 mg/dL Normal 70-100 [facility] Comment on above: ADA recommended refe rence rangeRandom Glucose Reference Range is dependent on time and content of last meal. Glucose of more than 200 mg/dL in a nonstressed, ambulatory subject supports the diagnosis of Diabetes Mellitus. Result Comment: [place] om Glucose Reference Range is dependent on time and content of last meal. Glucose of more than 200 mg/dL in a nonstressed, ambulatory subject supports the diagnosis of Diabetes Mellitus. ADA recommended reference range Performed By: #### H EPATIC, MG, LIPASE, CMP, CBC #### [address] HCG ( test) IA.rapi d Ql (U)Ordered By: Gabino Parker on 05-30-2023 HCG ( test) Ql (U) Negative [facility] HCG,Urineon 05-30-2023 Beta HCG ( test) Ql (U) Negative Normal [facility] Comment on above: Order Comment: Name Collection Type:: Clean-Voided Midstream Result Comment: PERF ORMED BY: [place] [address] PATHOLOGIST CAKE DECORATOR BAUTISTA BAKER M.D. Performed By: #### A DDONUAPLUS, CG, CUU #### [address] Hematocrit [Volume Fraction] of Blood by Automated countOrdered By: Gabino Parker on 05-30-2023 Hematocrit (Bld) [Volume fraction] 34.9 % Normal 34.0-46.4 [facility] Comment on above: Performed By: #### H EPATIC, MG, LIPASE, CMP, CBC #### [address] Hemoglobin [Mass/volume] in BloodOrdered By: Gabino Parker on 05-30-2023 Hemoglobin (Bld) [Mass/Vol] 11.8 g/dL Normal 11.8-15.4 [facility] Comment on above: Performed By: #### H EPATIC, MG, LIPASE, CMP, CBC #### [facility] [address] Hepatic Panelon 05-30-2023 Bilirubin,Indirect 0.3 mg/dL Normal [facility] Comment on above: Performed By: #### H EPATIC, MG, LIPASE, CMP, CBC #### [facility] [address] Bilirubin.indirect [Mass/Vol] 0.10 mg/dL Normal 0.03-0.18 [facility] Comment on above: Performed By: #### H EPATIC, MG, LIPASE, CMP, CBC #### [facility] [address] Ketones Auto test strip (U) [Mass/Vol]Ordered By: Gabino Parker on 05-30-2023 Ketones (U) [Mass/Vol] Negative Negative [facility] Laboratory - UrinalysisOrder ed By: Gabino Parker on 05-30-2023 Hyaline casts LM Ql (Urine sed) 0-8 [LPF] 0-8 [facility] Leukocytes [#/volume] correc darvin for nucleated erythrocytes in Blood by Automated counOrdered By: Gabino Parker on 05-30-2023 WBC corrected for nucl RBC Auto (Bld) [#/Vol] 8.8 10*3/uL 3.8-11.6 [facility] Leukocytes [#/volume] in Blo od by Automated countOrdered By: Gabino Parker on 05-30-2023 WBC (Bld) [#/Vol] 8.8 10*3/uL Normal 3.8-11.6 [facility] Comment on above: Performed By: #### H EPATIC, MG, LIPASE, CMP, CBC #### [facility] [address] Lipase [Enzymatic activity/v olume] in Serum or PlasmaOrdered By: Gabino Parker on 05-30-2023 Lipase [Catalytic activity/Vol] 37.0 U/L Normal 11.0-82.0 [facility] Comment on above: Result Comment: PERF ORMED BY: [place] [address] PATHOLOGIST CAKE DECORATOR BAUTISTA BAKER M.D. Performed By: #### H EPATIC, MG, LIPASE, CMP, CBC #### [address] Lymphocytes [#/volume] in Bl ood by Automated countOrdered By: Gabino Parker on 05-30-2023 Lymphocytes (Bld) [#/Vol] 1.4 10*3/uL Normal 1.00-4.8 [facility] Comment on above: Performed By: #### H EPATIC, MG, LIPASE, CMP, CBC #### [address] Lymphocytes/100 leukocytes i n Blood by Automated countOrdered By: Gabino Parker on 05-30-2023 Lymphocytes/100 WBC (Bld) 15.7 % Normal . [facility] Comment on above: Performed By: #### H EPATIC, MG, LIPASE, CMP, CBC #### [address] MCH [Entitic mass] by Automa darvin countOrdered By: Gabino Parker on 05-30-2023 MCH (RBC) [Entitic mass] 30.5 pg Normal 24.7-34.3 [facility] Comment on above: Performed By: #### H EPATIC, MG, LIPASE, CMP, CBC #### [address] MCHC Auto (RBC) [Mass/Vol]Or dered By: Gabino Parker on 05-30-2023 MCHC (RBC) [Mass/Vol] 33.8 g/dL 32.0-35.0 [facility] MCV [Entitic volume] by Auto mated countOrdered By: Gabino Parker on 05-30-2023 MCV (RBC) [Entitic vol] 90.3 fL Normal 80-100 [facility] Comment on above: Performed By: #### H EPATIC, MG, LIPASE, CMP, CBC #### [facility] [address] [place] [address] Magnesium [Mass/volume] in S elder or PlasmaOrdered By: Gabino Parker on 05-30-2023 Magnesium [Mass/Vol] 2.1 mg/dL Normal 1.9-2.7 [facility] Comment on above: Performed By: #### H EPATIC, MG, LIPASE, CMP, CBC #### [facility] [address] [place] [address] Monocyte distribution width [Entitic volume] in Blood by AutomatedOrdered By: Gabino Parker on 05-30-2023 Monocyte distribution width Auto (Bld) [Entitic vol] 16.47 % 0.00-20.00 [facility] Neutrophils [#/volume] in Bl ood by Automated countOrdered By: Gabino Parker on 05-30-2023 Neutrophils (Bld) [#/Vol] 6.9 10*3/uL Normal 1.8-7.7 [facility] Comment on above: Performed By: #### H EPATIC, MG, LIPASE, CMP, CBC #### [facility] [address] [place] [address] Nitrite Test strip Ql (U)Ord ered By: Gabino Parker on 05-30-2023 Nitrite Ql (U) Negative Negative [facility] No Panel InformationOrdered By: Gabino Parker on 05-30-2023 Estimated GFR (CKD-EPI) > 60.0 mL/Min [facility] Creatinine Clearance (Chem 118.42 [facility] Nucleated erythrocytes [Pres ence] in Blood by Automated countOrdered By: Gabino Parker on 05-30-2023 Nucleated RBC Auto Ql (Bld) 0.1 /100{WBC} 0-0.5 [facility] Platelet mean volume [Entiti c volume] in Blood by Automated countOrdered By: Gabino Parker on 05-30-2023 Platelet mean volume (Bld) [Entitic vol] 9.5 fL Normal 6.3-10.7 [facility] Comment on above: Performed By: #### H EPATIC, MG, LIPASE, CMP, CBC #### [facility] [address] [place] [address] Platelets [#/volume] in Bloo d by Automated countOrdered By: Gabino Parker on 05-30-2023 Platelets (Bld) [#/Vol] 270 10*3/uL Normal 150-450 [facility] Comment on above: Performed By: #### H EPATIC, MG, LIPASE, CMP, CBC #### [address] Potassium [Moles/volume] in Serum or PlasmaOrdered By: Gabino Parker on 05-30-2023 Potassium [Moles/Vol] 4.0 mmol/L Normal 3.5-5.1 [facility] Comment on above: Performed By: #### H EPATIC, MG, LIPASE, CMP, CBC #### [address] Protein Auto test strip (U) [Mass/Vol]Ordered By: Gabino Parker on 05-30-2023 Protein (U) [Mass/Vol] Negative Negative [facility] Protein [Mass/volume] in Ser um or PlasmaOrdered By: Gabino Parker on 05-30-2023 Protein [Mass/Vol] 7.2 g/dL Normal 6.4-8.9 [facility] Comment on above: Performed By: #### H EPATIC, MG, LIPASE, CMP, CBC #### [address] Serum globulin measurement b y calculation (mass/volume)Ordered By: Gabino Parker on 05-30-2023 Globulin (S) [Mass/Vol] 3.1 g/dL Normal [facility] Comment on above: Performed By: #### H EPATIC, MG, LIPASE, CMP, CBC #### [address] Serum or plasma albumin/glob ulin mass ratioOrdered By: Gabino Parker on 05-30-2023 Albumin/Globulin [Mass ratio] 1.3 {ratio} Normal [facility] Comment on above: Performed By: #### H EPATIC, MG, LIPASE, CMP, CBC #### [facility] [address] Serum or plasma anion gap de terminationOrdered By: Gabino Parker on 05-30-2023 Anion gap [Moles/Vol] 12.3 mmol/L Normal 6.0-15.0 [facility] Comment on above: Performed By: #### H EPATIC, MG, LIPASE, CMP, CBC #### [facility] [address] [place] [address] Serum or plasma non-glucuron idated bilirubin measurement (mass/volume)Ordered By: Gabino Parker on 05-30-2023 Bilirubin.indirect [Mass/Vol] 0.3 mg/dL [facility] Sodium [Moles/volume] in Ser um or PlasmaOrdered By: Gabino Parker on 05-30-2023 Sodium [Moles/Vol] 139 mmol/L Normal 136-145 [facility] Comment on above: Performed By: #### H EPATIC, MG, LIPASE, CMP, CBC #### [facility] [address] [place] [address] Specific gravity Auto test s trip (U) [Rel density]Ordered By: Gabino Parker on 05-30-2023 Specific gravity (U) [Rel density] 1.011 1.001-1.030 [facility] Squamous epithelial cells de tection in urine sediment by light microscopyOrdered By: Gabino Parker on 05-30-2023 Epithelial cells.squamous LM Ql (Urine sed) 0-1 [HPF] 0-2 [facility] Urea nitrogen [Mass/volume] in Serum or PlasmaOrdered By: Gabino Parker on 05-30-2023 Urea nitrogen [Mass/Vol] 6 mg/dL Low 7-25 [facility] Comment on above: Performed By: #### H EPATIC, MG, LIPASE, CMP, CBC #### [facility] [address] [place] [address] Urine Cultureon 05-30-2023 Bacteria identified Cx Nom (U) 75,000 colonies/ml mixed bacterial skin contaminants 2 Days PERFORMED BY: [place] [address] PATHOLOGIST CAKE DECORATOR BAUTISTA BAKER M.D. Normal [facility] Comment on above: Performed By: #### A CORY, ALIYAHG, CUU #### [facility] [address] Urine bacteria detection by automated methodOrdered By: Gabino Parker on 05-30-2023 Bacteria Auto Ql (U) None seen None Seen [facility] Urine clarity by refractomet ry automatedOrdered By: Gabino Parker on 05-30-2023 Clarity Refractometry automated (U) Clear Clear [facility] Urine culture routineOrdered By: Gabino Parker on 05-30-2023 Bacteria identified Cx Nom (U) 2 Days [facility] Urine glucose measurement by automated test strip (mass/volume)Ordered By: Gabino Parker on 05-30-2023 Glucose Auto test strip (U) [Mass/Vol] Normal mg/dL Normal [facility] Urine hemoglobin detection b y automated test stripOrdered By: Gabino Parker on 05-30-2023 Hemoglobin Auto test strip Ql (U) Negative Negative [facility] Urine leukocyte esterase det ection by automated test stripOrdered By: Gabino Parker on 05-30-2023 Leukocyte esterase Auto test strip Ql (U) 1+ High Negative [facility] Urine pH measurement by auto mated test stripOrdered By: Gabino Parker on 05-30-2023 pH (U) [pH] Normal 5.0-9.0 [facility] Comment on above: Order Comment: Name Collection Type:: Clean-Voided Midstream Performed By: #### A CORY, JOSESITO, CUU #### [facility] [address] [place] [address] Urobilinogen Auto test strip (U) [Mass/Vol]Ordered By: Gabino Parker on 05-30-2023 Urobilinogen (U) [Mass/Vol] Normal mg/dL Normal [facility] Basic metabolic 2000 panelon 04-12-2024 Anion gap [Moles/Vol] 10 mmol/L Normal 9-18 [facility] Comment on above: Order Comment: Speci men Type: BLOOD SPECIMENOrdering Facility: [facility] Address: [facility] [place] [address] Performed By: #### 2 4321-2, , 2776-02 ####[facility] LABORATORYCLIA [id number] [place] [address] [place] Calcium [Mass/Vol] 8.5 mg/dL Normal 8.5-10.2 [facility] Comment on above: Order Comment: Speci men Type: BLOOD SPECIMENOrdering Facility: [facility] Address: [address] [place] [address] Performed By: #### 2 4321-2, , 2776-02 ####[facility] LABORATORYCLIA [id number] [place] [id number] [place] Chloride [Moles/Vol] 105 mmol/L Normal 97-105 [facility] Comment on above: Order Comment: Speci men Type: BLOOD SPECIMENOrdering Facility: [facility] Address: [address] [place] [address] Performed By: #### 2 4321-2, , 2776-02 ####[facility] LABORATORYCLIA [id number] [place] [id number] [place] CO2 [Moles/Vol] 24 mmol/L Normal 22-30 [facility] Comment on above: Order Comment: Speci men Type: BLOOD SPECIMENOrdering Facility: [facility] Address: [address] [place] [address] Performed By: #### 2 4321-2, , 2776-02 ####[facility] LABORATORYCLIA [id number] [place] [id number] [place] Creatinine [Mass/Vol] 0.52 mg/dL Low 0.58-0.96 [facility] Comment on above: Order Comment: Speci men Type: BLOOD SPECIMENOrdering Facility: [facility] Address: [address] [place] [address] Performed By: #### 2 4321-2, , 2776-02 ####[facility]ORYCLIA [id number] [place] [id number] [place] Creatinine and Glomerular filtration rate.predicted panel (S/P/Bld) 125 mL/min/1.73m??? Normal >=60 [facility] Comment on above: Order Comment: Geraldo marrero Type: BLOOD SPECIMENOrdering Facility: [facility] Address: [address] [place] [address] Result Comment: Jessica mated Glomerular Filtration Rate [...] Performed By: #### 2 4321-2, , 2776-02 ####[facility]ORYCLIA [id number] [place] [id number] [place] Glucose [Mass/Vol] 77 mg/dL Normal 74-99 [facility] Comment on above: Order Comment: Geraldo marrero Type: BLOOD SPECIMENOrdering Facility: [facility] Address: [address] [place] [address] Result Comment: The [place] Diabetes [employer] (ADA) provides guidance for cutoff [...] Standards of Medical Care in Diabetes 2016, [place] [employer]. Diabetes Care. 2016.39(Suppl 1). Performed By: #### 2 4321-2, , 2776-02 ####[facility] LABORATORYCLIA [id number] [place] [address] [place] Potassium [Moles/Vol] 4.2 mmol/L Normal 3.7-5.1 [facility] Comment on above: Order Comment: Speci men Type: BLOOD SPECIMENOrdering Facility: [facility] Address: [address] [place] [address] Performed By: #### 2 4321-2, 79726-5, 2776-1 ####[facility]ORYCLIA [id number] [place] [id number] [place] Sodium [Moles/Vol] 139 mmol/L Normal 136-144 [facility] Comment on above: Order Comment: Speci men Type: BLOOD SPECIMENOrdering Facility: [facility] Address: [address] [place] [address] Performed By: #### 2 4321-2, 82614-7, 2776- ####[facility]ORYCLIA [id number] [place] [id number] [place] Urea nitrogen [Mass/Vol] 8 mg/dL Normal 7-21 [facility] Comment on above: Order Comment: Speci men Type: BLOOD SPECIMENOrdering Facility: [facility] Address: [address] [place] [address] Performed By: #### 2 4321-2, , 2776-1 ####[facility]ATORYCLIA [id number] [place] [id number] [place] CBC panel Auto (Bld)on 05-27 Erythrocyte distribution width (RBC) [Ratio] 13.7 % Normal 11.5-15.0 [facility] Comment on above: Order Comment: Speci men Type: BLOOD SPECIMENOrdering Facility: [facility] Address: [address] [place] [address] Performed By: #### 5 8410-2 ####[facility]ATORYCLIA [id number] [place] [id number] [place] Hematocrit (Bld) [Volume fraction] 31.5 % Low 36.0-46.0 [facility] Comment on above: Order Comment: Speci men Type: BLOOD SPECIMENOrdering Facility: [facility] Address: [address] [place] [address] Performed By: #### 5 8410-2 ####[facility] LABORATORYCLIA [id number] [address] [facility] Hemoglobin (Bld) [Mass/Vol] 11.1 g/dL Low 11.5-15.5 [facility] Comment on above: Order Comment: Speci men Type: BLOOD SPECIMENOrdering Facility: [facility] Address: [address] [place] [address] Performed By: #### 5 8410-2 ####[facility] LABORATORYCLIA [id number] [address] MCH (RBC) [Entitic mass] 31.4 pg Normal 26.0-34.0 [facility] Comment on above: Order Comment: Speci men Type: BLOOD SPECIMENOrdering Facility: [facility] Address: [address] [place] [address] Performed By: #### 5 8410-2 ####[facility] LABORATORYCLIA [id number] [address] [facility] MCHC (RBC) [Mass/Vol] 35.2 g/dL Normal 30.5-36.0 [facility] Comment on above: Order Comment: Speci men Type: BLOOD SPECIMENOrdering Facility: [facility] Address: [address] [place] [address] Performed By: #### 5 8410-2 ####[facility] LABORATORYCLIA [id number] [address] [place] MCV (RBC) [Entitic vol] 89.2 fL Normal 80.0-100.0 [facility] Comment on above: Order Comment: Speci men Type: BLOOD SPECIMENOrdering Facility: [facility] Address: [address] [place] [address] Performed By: #### 5 8410-2 ####[facility] LABORATORYCLIA [id number] [address] [place] Nucleated RBC (Bld) [#/Vol] 10*3/uL Normal <0.01 [facility] Comment on above: Order Comment: Speci men Type: BLOOD SPECIMENOrdering Facility: [facility] Address: [address] [place] [address] Performed By: #### 5 8410-2 ####[facility] LABORATORYCLIA [id number] [place] [id number] [place] Platelet mean volume (Bld) [Entitic vol] 11.8 fL Normal 9.0-12.7 [facility] Comment on above: Order Comment: Speci men Type: BLOOD SPECIMENOrdering Facility: [facility] Address: [address] [place] [address] Performed By: #### 5 8410-2 ####[facility] LABORATORYCLIA [id number] [place] [address] [place] Platelets (Bld) [#/Vol] 199 10*3/uL Normal 150-400 [facility] Comment on above: Order Comment: Speci men Type: BLOOD SPECIMENOrdering Facility: [facility] Address: [address] [place] [address] Performed By: #### 5 8410-2 ####[facility] LABORATORYCLIA [id number] [place] [address] [place] RBC (Bld) [#/Vol] 3.53 10*6/uL Low 3.90-5.20 [facility] Comment on above: Order Comment: Speci men Type: BLOOD SPECIMENOrdering Facility: [facility] Address: [address] [place] [address] Performed By: #### 5 8410-2 ####[facility]ORYCLIA [id number] [place] [id number] [place] WBC (Bld) [#/Vol] 6.24 10*3/uL Normal 3.70-11.00 [facility] Comment on above: Order Comment: Speci men Type: BLOOD SPECIMENOrdering Facility: [facility] Address: [address] [place] [address] Performed By: #### 5 8410-2 ####[facility] LABORATORYCLIA [id number] [place] [address] [place] CNCOon 05-28-2023 CNCO Letter Text Normal [facility] CNDSon 05-28-2023 CNDS Normal [facility] CNPNon 05-28-2023 CNPN Normal [facility] Magnesium SerPl-ncon 05-27 Magnesium [Mass/Vol] 1.9 mg/dL Normal 1.7-2.3 [facility] Comment on above: Order Comment: Speci men Type: BLOOD SPECIMENOrdering Facility: [facility] Address: [address] [place], [place] [address] Performed By: #### 2 4321-2, , 2776-02 ####[facility]ORYCLIA [id number] [place] [id number] [place] NURSING PROGon 05-28-2023 NURSING PROG [facility] Phosphate [Mass/Vol] 2.3 mg/dL Low 2.7-4.8 [facility] Comment on above: Order Comment: Speci men Type: BLOOD SPECIMENOrdering Facility: [facility] Address: [address] [place], [place] [address] Performed By: #### 2 4321-2, , 2776-02 ####[facility] LABORATORYCLIA [id number] [place] [id number] [place] Basic metabolic 2000 panelon 05-27-2023 Anion gap [Moles/Vol] 10 mmol/L Normal 9-18 [facility] Comment on above: Order Comment: Speci men Type: BLOOD SPECIMENOrdering Facility: [facility] Address: [address] [place] [address] Performed By: #### 2 4321-2, , 2776-02 ####[facility] LABORATORYCLIA [id number] [place] [id number] [place] Calcium [Mass/Vol] 8.9 mg/dL Normal 8.5-10.2 [facility] Comment on above: Order Comment: Speci men Type: BLOOD SPECIMENOrdering Facility: [facility] Address: [address] [place] [address] Performed By: #### 2 4321-2, , 2776-02 ####[facility] LABORATORYCLIA [id number] [place] [id number] [place] Chloride [Moles/Vol] 104 mmol/L Normal 97-105 [facility] Comment on above: Order Comment: Speci men Type: BLOOD SPECIMENOrdering Facility: [facility] Address: [address] [place] [address] Performed By: #### 2 4321-2, , 2776-02 ####[facility] LABORATORYCLIA [id number] [place] [id number] [place] CO2 [Moles/Vol] 25 mmol/L Normal 22-30 [facility] Comment on above: Order Comment: Speci men Type: BLOOD SPECIMENOrdering Facility: [facility] Address: [address] [place] [address] Performed By: #### 2 4321-2, , 2776-02 ####[facility] LABORATORYCLIA [id number] [place] [id number] [place] Creatinine [Mass/Vol] 0.57 mg/dL Low 0.58-0.96 [facility] Comment on above: Order Comment: Speci men Type: BLOOD SPECIMENOrdering Facility: [facility] Address: [address] [place] [address] Performed By: #### 2 4321-2, , 2776-02 ####[facility] LABORATORYCLIA [id number] [place] [id number] [place] Creatinine and Glomerular filtration rate.predicted panel (S/P/Bld) 122 mL/min/1.73m??? Normal >=60 [facility] Comment on above: Order Comment: Speci men Type: BLOOD SPECIMENOrdering Facility: [facility] Address: [address] [place] [address] Result Comment: Jessica mated Glomerular Filtration Rate [...] Performed By: #### 2 4321-2, , 2776-02 ####[facility] LABORATORYCLIA [id number] [place] [id number] [place] Glucose [Mass/Vol] 101 mg/dL High 74-99 [facility] Comment on above: Order Comment: Gerlado marrero Type: BLOOD SPECIMENOrdering Facility: [facility] Address: [address] [place] [address] Result Comment: The [place] Diabetes Association (ADA) provides guidance for cutoff [...] Standards of Medical Care in Diabetes 2016, [place] [employer]. Diabetes Care. 2016.39(Suppl 1). Performed By: #### 2 4321-2, , 2776-02 ####[facility] LABORATORYCLIA [id number] [place] [id number] [place] Potassium [Moles/Vol] 4.0 mmol/L Normal 3.7-5.1 [facility] Comment on above: Order Comment: Geraldo marrero Type: BLOOD SPECIMENOrdering Facility: [facility] Address: [address] [place] [address] Performed By: #### 2 4321-2, , 2776-02 ####[facility] LABORATORYCLIA [id number] [place] [id number] [place] Sodium [Moles/Vol] 139 mmol/L Normal 136-144 [facility] Comment on above: Order Comment: Speci men Type: BLOOD SPECIMENOrdering Facility: [facility] Address: [address] [place] [address] Performed By: #### 2 4321-2, , 2776-02 ####[facility]ORATORYCLIA [id number] [place] [id number] [place] Urea nitrogen [Mass/Vol] 6 mg/dL Low 7-21 [facility] Comment on above: Order Comment: Speci men Type: BLOOD SPECIMENOrdering Facility: [facility] Address: [address] [place] [address] Performed By: #### 2 4321-2, , 2776-02 ####[facility] LABORATORYCLIA [id number] [place] [id number] [facility] CASE MANAGEMon 05-27-2023 CASE MANAGEM Normal [facility] CBC panel Auto (Bld)on 05-26 Erythrocyte distribution width (RBC) [Ratio] 13.5 % Normal 11.5-15.0 [facility] Comment on above: Order Comment: Speci men Type: BLOOD SPECIMENOrdering Facility: [facility] Address: [address] [place] [address] Performed By: #### 5 8410-2 ####[facility] LABORATORYCLIA [id number] [place] [id number] [place] Hematocrit (Bld) [Volume fraction] 36.5 % Normal 36.0-46.0 [facility] Comment on above: Order Comment: Speci men Type: BLOOD SPECIMENOrdering Facility: [facility] Address: [address] [place] [address] Performed By: #### 5 8410-2 ####[facility] LABORATORYCLIA [id number] [place] [id number] [place] Hemoglobin (Bld) [Mass/Vol] 12.8 g/dL Normal 11.5-15.5 [facility] Comment on above: Order Comment: Speci men Type: BLOOD SPECIMENOrdering Facility: [facility] Address: [address] [place] [address] Performed By: #### 5 8410-2 ####[facility] LABORATORYCLIA [id number] [address] [facility] MCH (RBC) [Entitic mass] 30.9 pg Normal 26.0-34.0 [facility] Comment on above: Order Comment: Speci men Type: BLOOD SPECIMENOrdering Facility: [facility] Address: [address] [place] [address] Performed By: #### 5 8410-2 ####[facility] LABORATORYCLIA [id number] [address] [place] MCHC (RBC) [Mass/Vol] 35.1 g/dL Normal 30.5-36.0 [facility] Comment on above: Order Comment: Speci men Type: BLOOD SPECIMENOrdering Facility: [facility] Address: [address] [place] [address] Performed By: #### 5 8410-2 ####[facility] LABORATORYCLIA [id number] [address] [place] [facility] MCV (RBC) [Entitic vol] 88.2 fL Normal 80.0-100.0 [facility] Comment on above: Order Comment: Speci men Type: BLOOD SPECIMENOrdering Facility: [facility] Address: [address] [place] [address] Performed By: #### 5 8410-2 ####[facility] LABORATORYCLIA [id number] [address] [place] Nucleated RBC (Bld) [#/Vol] 10*3/uL Normal <0.01 [facility] Comment on above: Order Comment: Speci men Type: BLOOD SPECIMENOrdering Facility: [facility] Address: [address] [place] [address] Performed By: #### 5 8410-2 ####[facility] LABORATORYCLIA [id number] [address] [place] Platelet mean volume (Bld) [Entitic vol] 11.5 fL Normal 9.0-12.7 [facility] Comment on above: Order Comment: Speci men Type: BLOOD SPECIMENOrdering Facility: [facility] Address: [address] [place] [address] Performed By: #### 5 8410-2 ####[facility] LABORATORYCLIA [id number] [place] [id number] [place] Platelets (Bld) [#/Vol] 205 10*3/uL Normal 150-400 [facility] Comment on above: Order Comment: Speci men Type: BLOOD SPECIMENOrdering Facility: [facility] Address: [address] [place] [address] Performed By: #### 5 8410-2 ####[facility] LABORATORYCLIA [id number] [place] [id number] [place] RBC (Bld) [#/Vol] 4.14 10*6/uL Normal 3.90-5.20 [facility] Comment on above: Order Comment: Speci men Type: BLOOD SPECIMENOrdering Facility: [facility] Address: [address] [place] [address] Performed By: #### 5 8410-2 ####[facility]ORATORYCLIA [id number] [place] [id number] [place] WBC (Bld) [#/Vol] 6.24 10*3/uL Normal 3.70-11.00 [facility] Comment on above: Order Comment: Speci men Type: BLOOD SPECIMENOrdering Facility: [facility] Address: [address] [place] [address] Performed By: #### 5 8410-2 ####[facility] LABORATORYCLIA [id number] [place] [id number] [place] Magnesium SerPl-mCncon 05-26 Magnesium [Mass/Vol] 1.8 mg/dL Normal 1.7-2.3 [facility] Comment on above: Order Comment: Speci men Type: BLOOD SPECIMENOrdering Facility: [facility] Address: [address] [place] [address] Performed By: #### 2 4321-2, 26356-8, 2776-02 ####[facility] LABORATORYCLIA [id number] [place] [address] [place] NURSING PROGon 05-27-2023 NURSING PROG Normal [facility] NUTRITIONon 05-27-2023 NUTRITION Normal [facility] Phosphate SerPl-mCncon 05-26 Phosphate [Mass/Vol] 2.4 mg/dL Low 2.7-4.8 [facility] Comment on above: Order Comment: Speci men Type: BLOOD SPECIMENOrdering Facility: [facility] Address: [address] [place] [id number] Performed By: #### 2 4321-2, , 2776-02 ####[facility] LABORATORYCLIA [id number] [place] [id number] [place] ALLIED HEALTHon 05-26-2023 ALLIED HEALTH Normal [facility] Basic metabolic 2000 panelon 05-26-2023 Anion gap [Moles/Vol] 13 mmol/L Normal 9-18 [facility] Comment on above: Order Comment: Speci men Type: BLOOD SPECIMENOrdering Facility: [facility] Address: [address] [place] [id number] Performed By: #### 2 4321-2, , 2776-02 ####[facility] LABORATORYCLIA [id number] [place] [id number] [place] Calcium [Mass/Vol] 9.0 mg/dL Normal 8.5-10.2 [facility] Comment on above: Order Comment: Speci men Type: BLOOD SPECIMENOrdering Facility: [facility] Address: [address] [place] [address] Performed By: #### 2 4321-2, , 2776-02 ####[facility] LABORATORYCLIA [id number] [place] [id number] [place] Chloride [Moles/Vol] 103 mmol/L Normal 97-105 [facility] Comment on above: Order Comment: Speci men Type: BLOOD SPECIMENOrdering Facility: [facility] Address: [address] [place] [address] Performed By: #### 2 4321-2, , 2776-02 ####[facility]ORATORYCLIA [id number] [place] [id number] [place] CO2 [Moles/Vol] 20 mmol/L Low 22-30 [facility] Comment on above: Order Comment: Speci men Type: BLOOD SPECIMENOrdering Facility: [facility] Address: [address] [place] [address] Performed By: #### 2 4321-2, , 2776-02 ####[facility]ORATORYCLIA [id number] [place] [id number] [place] Creatinine [Mass/Vol] 0.68 mg/dL Normal 0.58-0.96 [facility] Comment on above: Order Comment: Speci men Type: BLOOD SPECIMENOrdering Facility: [facility] Address: [address] [place] [address] Performed By: #### 2 432-2, , 2776-02 ####[facility] LABORATORYCLIA [id number] [place] [address] [place] [facility] Creatinine and Glomerular filtration rate.predicted panel (S/P/Bld) 117 mL/min/1.73m??? Normal >=60 [facility] Comment on above: Order Comment: Speci men Type: BLOOD SPECIMENOrdering Facility: [facility] Address: [address] [place] [address] Result Comment: Jessica mated Glomerular Filtration Rate [...] Performed By: #### 2 4321-2, , 2776-02 ####[facility] LABORATORYCLIA [id number] [place] [address] [place] Glucose [Mass/Vol] 71 mg/dL Low 74-99 [facility] Comment on above: Order Comment: Speci men Type: BLOOD SPECIMENOrdering Facility: [facility] Address: [address] [place] [phone] Result Comment: The [place] Diabetes Association (ADA) provides guidance for cutoff [...] Standards of Medical Care in Diabetes 2016, [place] [employer]. Diabetes Care. 2016.39(Suppl 1). Performed By: #### 2 4321-2, , 2776-02 ####[facility] LABORATORYCLIA [id number] [place] [address] [place] Potassium [Moles/Vol] 4.3 mmol/L Normal 3.7-5.1 [facility] Comment on above: Order Comment: Lyssai men Type: BLOOD SPECIMENOrdering Facility: [facility] Address: [address] [place] [id number] Performed By: #### 2 4321-2, , 2776-02 ####[facility] LABORATORYCLIA [id number] [place] [id number] [place] Sodium [Moles/Vol] 136 mmol/L Normal 136-144 [facility] Comment on above: Order Comment: Speci men Type: BLOOD SPECIMENOrdering Facility: [facility] Address: [address] [place] [address] Performed By: #### 2 4321-2, , 2776-02 ####[facility] LABORATORYCLIA [id number] [place] [id number] [place] Urea nitrogen [Mass/Vol] 10 mg/dL Normal 7-21 [facility] Comment on above: Order Comment: Speci men Type: BLOOD SPECIMENOrdering Facility: [facility] Address: [address] [place] [address] Performed By: #### 2 4321-2, 40318-9, 2777-1 ####[facility] LABORATORYCLIA [id number] [place] [address] [place] CASE MGT INIT ASSESon 2023 CASE MGT INIT ASSES Normal [facility] CBC panel Auto (Bld)on 05-25 Erythrocyte distribution width (RBC) [Ratio] 13.3 % Normal 11.5-15.0 [facility] Comment on above: Order Comment: Speci men Type: BLOOD SPECIMENOrdering Facility: [facility] Address: [address] [place] [address] Performed By: #### 5 8410-2 ####[facility] LABORATORYCLIA [id number] [address] [place] Hematocrit (Bld) [Volume fraction] 33.8 % Low 36.0-46.0 [facility] Comment on above: Order Comment: Speci men Type: BLOOD SPECIMENOrdering Facility: [facility] Address: [address] [place] [address] Performed By: #### 5 8410-2 ####[facility] LABORATORYCLIA [id number] [place] [address] [place] Hemoglobin (Bld) [Mass/Vol] 11.5 g/dL Normal 11.5-15.5 [facility] Comment on above: Order Comment: Speci men Type: BLOOD SPECIMENOrdering Facility: [facility] Address: [address] [place] [address] Performed By: #### 5 8410-2 ####[facility] LABORATORYCLIA [id number] [place] [address] [place] MCH (RBC) [Entitic mass] 30.5 pg Normal 26.0-34.0 [facility] Comment on above: Order Comment: Speci men Type: BLOOD SPECIMENOrdering Facility: [facility] Address: [address] [place] [address] Performed By: #### 5 8410-2 ####[facility] LABORATORYCLIA [id number] [place] [id number] [place] MCHC (RBC) [Mass/Vol] 34.0 g/dL Normal 30.5-36.0 [facility] Comment on above: Order Comment: Speci men Type: BLOOD SPECIMENOrdering Facility: [facility] Address: [address] [place] [address] Performed By: #### 5 8410-2 ####[facility] LABORATORYCLIA [id number] [place] [address] [place] MCV (RBC) [Entitic vol] 89.7 fL Normal 80.0-100.0 [facility] Comment on above: Order Comment: Speci men Type: BLOOD SPECIMENOrdering Facility: [facility] Address: [address] [place] [address] Performed By: #### 5 8410-2 ####[facility] LABORATORYCLIA [id number] [place] [address] [place] Nucleated RBC (Bld) [#/Vol] 10*3/uL Normal <0.01 [facility] Comment on above: Order Comment: Speci men Type: BLOOD SPECIMENOrdering Facility: [facility] Address: [address] [place] [address] Performed By: #### 5 8410-2 ####[facility] LABORATORYCLIA [id number] [place] [address] [place] Platelet mean volume (Bld) [Entitic vol] 11.7 fL Normal 9.0-12.7 [facility] Comment on above: Order Comment: Speci men Type: BLOOD SPECIMENOrdering Facility: [facility] Address: [address] [place] [address] Performed By: #### 5 8410-2 ####[facility] LABORATORYCLIA [id number] [address] [place] Platelets (Bld) [#/Vol] 181 10*3/uL Normal 150-400 [facility] Comment on above: Order Comment: Speci men Type: BLOOD SPECIMENOrdering Facility: [facility] Address: [address] [place] [address] Performed By: #### 5 8410-2 ####[facility] LABORATORYCLIA [id number] [place] [id number] [place] RBC (Bld) [#/Vol] 3.77 10*6/uL Low 3.90-5.20 [facility] Comment on above: Order Comment: Speci men Type: BLOOD SPECIMENOrdering Facility: [facility] Address: [address] [place] [address] Performed By: #### 5 8410-2 ####[facility] LABORATORYCLIA [id number] [place] [id number] [place] WBC (Bld) [#/Vol] 5.34 10*3/uL Normal 3.70-11.00 [facility] Comment on above: Order Comment: Speci men Type: BLOOD SPECIMENOrdering Facility: [facility] Address: [address] [place] [address] Performed By: #### 5 8410-2 ####[facility] LABORATORYCLIA [id number] [place] [id number] [place] Magnesium SerPl-mCncon 05-25 Magnesium [Mass/Vol] 1.6 mg/dL Low 1.7-2.3 [facility] Comment on above: Order Comment: Speci men Type: BLOOD SPECIMENOrdering Facility: [facility] Address: [address] [place] [address] Performed By: #### 2 4321-2, 86522-7, 2777-1 ####[facility] LABORATORYCLIA [id number] [place] [id number] [place] NUTRITIONon 05-26-2023 NUTRITION Normal [facility] Phosphate SerPl-mCncon 05-25 Phosphate [Mass/Vol] 4.5 mg/dL Normal 2.7-4.8 [facility] Comment on above: Order Comment: Speci men Type: BLOOD SPECIMENOrdering Facility: [facility] Address: [address] [place] [address] Performed By: #### 2 4321-2, , 2776-02 ####[facility] LABORATORYCLIA [id number] [place] [id number] [place] XR ABDOMEN 1V SUPINEon 05-25 XR ABDOMEN 1V SUPINE Normal [facility] ANES POSTPROC EVALon 024 ANES POSTPROC EVAL Normal [facility] ANES PRE-OPon 05-25-2023 ANES PRE-OP Normal [facility] HISTORY PHYSICALon HISTORY PHYSICAL Normal [facility] NURSING PROGon 05-25-2023 NURSING PROG Normal [facility] NURSING PROG Normal [facility] Upper GI endoscopyon 024 Upper GI endoscopy Normal [facility] CNPNon 05-24-2023 CNPN Normal [facility] Home Health Recordson 2023 Home Health Records [id number] 0E#1.00TIFF Normal [facility] Basic metabolic 2000 panelon 05-22-2023 Anion gap [Moles/Vol] 10 mmol/L Normal 9-18 [facility] Comment on above: Order Comment: Speci men Type: BLOOD SPECIMENOrdering Facility: [facility] Address: [address] [place] [address] Performed By: #### 2 4321-2, , 2776-02 ####[facility] LABORATORYCLIA [id number] [place] [id number] [place] Calcium [Mass/Vol] 8.9 mg/dL Normal 8.5-10.2 [facility] Comment on above: Order Comment: Speci men Type: BLOOD SPECIMENOrdering Facility: [facility] Address: [address] [place] [address] Performed By: #### 2 4321-2, , 2776-02 ####[facility] LABORATORYCLIA [id number] [place] [id number] [place] Chloride [Moles/Vol] 110 mmol/L High 97-105 [facility] Comment on above: Order Comment: Speci men Type: BLOOD SPECIMENOrdering Facility: [facility] Address: [address] [place], [place] [address] Performed By: #### 2 4321-2, , 2776-02 ####[facility] LABORATORYCLIA [id number] [place] [id number] [place] CO2 [Moles/Vol] 23 mmol/L Normal 22-30 [facility] Comment on above: Order Comment: Speci men Type: BLOOD SPECIMENOrdering Facility: [facility] Address: [address] [place] [address] Performed By: #### 2 4321-2, , 2776-02 ####[facility] LABORATORYCLIA [id number] [place] [id number] [place] Creatinine [Mass/Vol] 0.73 mg/dL Normal 0.58-0.96 [facility] Comment on above: Order Comment: Speci men Type: BLOOD SPECIMENOrdering Facility: [facility] Address: [address] [place] [address] Performed By: #### 2 4321-2, , 2776-02 ####[facility] LABORATORYCLIA [id number] [place] [id number] [place] Creatinine and Glomerular filtration rate.predicted panel (S/P/Bld) 111 mL/min/1.73m??? Normal >=60 [facility] Comment on above: Order Comment: Speci men Type: BLOOD SPECIMENOrdering Facility: [facility] Address: [address] [place] [address] Result Comment: Jessica mated Glomerular Filtration Rate [...] Performed By: #### 2 4321-2, , 2776-02 ####[facility] LABORATORYCLIA [id number] [place] [id number] [place] Glucose [Mass/Vol] 73 mg/dL Low 74-99 [facility] Comment on above: Order Comment: Speci men Type: BLOOD SPECIMENOrdering Facility: [facility] Address: [address] [place] [address] Result Comment: The [place] Diabetes [employer] (ADA) provides guidance for cutoff [...] Standards of Medical Care in Diabetes 2016, [place] [employer]. Diabetes Care. 2016.39(Suppl 1). Performed By: #### 2 4321-2, , 2776-02 ####[facility] LABORATORYCLIA [id number] [place] [id number] [place] Potassium [Moles/Vol] 3.7 mmol/L Normal 3.7-5.1 [facility] Comment on above: Order Comment: Lyssai men Type: BLOOD SPECIMENOrdering Facility: [facility] Address: [address] [place], [place] [address] Performed By: #### 2 4321-2, , 2776-02 ####[facility] LABORATORYCLIA [id number] [place] [id number] [place] Sodium [Moles/Vol] 143 mmol/L Normal 136-144 [facility] Comment on above: Order Comment: Speci men Type: BLOOD SPECIMENOrdering Facility: [facility] Address: [address] [place] [address] Performed By: #### 2 4321-2, , 2776-02 ####[facility] LABORATORYCLIA [id number] [place] [address] [place] Urea nitrogen [Mass/Vol] 6 mg/dL Low 7-21 [facility] Comment on above: Order Comment: Speci men Type: BLOOD SPECIMENOrdering Facility: [facility] Address: [facility] [place] [address] Performed By: #### 2 4321-2, , 2776-02 ####[facility] LABORATORYCLIA [id number] [place] [address] [facility] CASE MANAGEMon 05-22-2023 CASE MANAGEM Normal [facility] CNDSon 05-22-2023 CNDS Normal [facility] Magnesium SerPl-ncon 05-21 Magnesium [Mass/Vol] 1.9 mg/dL Normal 1.7-2.3 [facility] Comment on above: Order Comment: Speci men Type: BLOOD SPECIMENOrdering Facility: [facility] Address: [facility] [place] [address] Performed By: #### 2 4321-2, , 2776-02 ####[facility]ORATORYCLIA [id number] [place] [id number] [place] NUTRITIONon 05-22-2023 NUTRITION Normal [facility] Phosphate SerPl-mCncon 05-21 Phosphate [Mass/Vol] 4.3 mg/dL Normal 2.7-4.8 [facility] Comment on above: Order Comment: Speci men Type: BLOOD SPECIMENOrdering Facility: [facility] Address: [facility] [place] [address] Performed By: #### 2 4321-2, , 2776-02 ####[facility] LABORATORYCLIA [id number] [place] [id number] [place] Basic metabolic 2000 panelon 05-21-2023 Anion gap [Moles/Vol] 12 mmol/L Normal 9-18 [facility] Comment on above: Order Comment: Speci men Type: BLOOD SPECIMENOrdering Facility: [facility] Address: [facility] [place] [address] Performed By: #### 2 4321-2, , 2776-02 ####[facility] LABORATORYCLIA [id number] [place] [address] [place] Calcium [Mass/Vol] 8.8 mg/dL Normal 8.5-10.2 [facility] Comment on above: Order Comment: Speci men Type: BLOOD SPECIMENOrdering Facility: [facility] Address: [address] [place] [address] Performed By: #### 2 4321-2, , 2776-02 ####[facility] LABORATORYCLIA [id number] [place] [id number] [place] Chloride [Moles/Vol] 107 mmol/L High 97-105 [facility] Comment on above: Order Comment: Speci men Type: BLOOD SPECIMENOrdering Facility: [facility] Address: [address] [place] [address] Performed By: #### 2 4321-2, , 2776-02 ####[facility]ORATORYCLIA [id number] [place] [address] [place] CO2 [Moles/Vol] 19 mmol/L Low 22-30 [facility] Comment on above: Order Comment: Speci men Type: BLOOD SPECIMENOrdering Facility: [facility] Address: [address] [place] [address] Performed By: #### 2 4321-2, , 2776-02 ####[facility]ORATORYCLIA [id number] [place] [id number] [place] Creatinine [Mass/Vol] 0.72 mg/dL Normal 0.58-0.96 [facility] Comment on above: Order Comment: Speci men Type: BLOOD SPECIMENOrdering Facility: [facility] Address: [address] [place] [address] Performed By: #### 2 4321-2, , 2776-02 ####[facility]ORATORYCLIA [id number] [place] [id number] [place] Creatinine and Glomerular filtration rate.predicted panel (S/P/Bld) 113 mL/min/1.73m??? Normal >=60 [facility] Comment on above: Order Comment: Speci men Type: BLOOD SPECIMENOrdering Facility: [facility] Address: [address] [place] [address] Result Comment: Jessica mated Glomerular Filtration Rate [...] Performed By: #### 2 4321-2, , 2776-02 ####[facility] LABORATORYCLIA [id number] [place] [id number] [place] Glucose [Mass/Vol] 85 mg/dL Normal 74-99 [facility] Comment on above: Order Comment: Geraldo marrero Type: BLOOD SPECIMENOrdering Facility: [facility] Address: [address] [place] [address] Result Comment: The [place] Diabetes Association (ADA) provides guidance for cutoff [...] Standards of Medical Care in Diabetes 2016, [place] [employer]. Diabetes Care. 2016.39(Suppl 1). Performed By: #### 2 4321-2, , 2776-02 ####[facility] LABORATORYCLIA [id number] [place] [id number] [place] Potassium [Moles/Vol] 3.8 mmol/L Normal 3.7-5.1 [facility] Comment on above: Order Comment: Geraldo marrero Type: BLOOD SPECIMENOrdering Facility: [facility] Address: [address] [place] [address] Performed By: #### 2 4321-2, , 2776-02 ####[facility]ORATORYCLIA [id number] [place] [id number] [place] Sodium [Moles/Vol] 138 mmol/L Normal 136-144 [facility] Comment on above: Order Comment: Speci men Type: BLOOD SPECIMENOrdering Facility: [facility] Address: [address] [place] [address] Performed By: #### 2 4321-2, , 2776-02 ####[facility]ORATORYCLIA [id number] [place] [id number] [place] Urea nitrogen [Mass/Vol] 5 mg/dL Low 7-21 [facility] Comment on above: Order Comment: Speci men Type: BLOOD SPECIMENOrdering Facility: [facility] Address: [address] [place] [address] Performed By: #### 2 4321-2, , 2776-02 ####[facility]ORATORYCLIA [id number] [place] [id number] [place] CASE MANAGEMon 05-21-2023 CASE MANAGEM Normal [facility] CASE MANAGEM Normal [facility] CASE MGT INIT ASSESon 2023 CASE MGT INIT [facility] Magnesium SerPl-mCncon 05-20 Magnesium [Mass/Vol] 1.9 mg/dL Normal 1.7-2.3 [facility] Comment on above: Order Comment: Speci men Type: BLOOD SPECIMENOrdering Facility: [facility] Address: [address] [place], [place] [address] Performed By: #### 2 4321-2, , 2776-02 ####[facility]ORATORYCLIA [id number] [place] [id number] [place] NURSING PROGon 05-21-2023 NURSING PROG Normal [facility] Phosphate SerPl-mCncon 05-20 Phosphate [Mass/Vol] 4.1 mg/dL Normal 2.7-4.8 [facility] Comment on above: Order Comment: Speci men Type: BLOOD SPECIMENOrdering Facility: [facility] Address: [address] [place], [place] [address] Performed By: #### 2 4321-2, , 2776-02 ####[facility] LABORATORYCLIA [id number] [place] [address] [place] ALLIED HEALTHon 05-20-2023 ALLIED HEALTH Normal [facility] ANES POSTPROC EVALon 024 ANES POSTPROC EVAL Normal [facility] ANES PRE-OPon 05-20-2023 ANES PRE-OP Normal [facility] Bacteria Ur Culton Bacteria identified Cx Nom (U) ORGANISM ID: 1 10,000 -<50,000 CFU/ml Normal urogenital annika Normal [facility] Comment on above: Performed By: #### 6 30-4 ####[facility] LABCLIA [id number] [facility] [place] [address] [place] Basic metabolic 2000 panelon 05-20-2023 Anion gap [Moles/Vol] 12 mmol/L Normal 9-18 [facility] Comment on above: Order Comment: Speci men Type: BLOOD SPECIMENOrdering Facility: [facility] Address: [address] [place] [address] Performed By: #### 2 4321-2, , 2776-02 ####[facility] LABORATORYCLIA [id number] [place] [id number] [place] Calcium [Mass/Vol] 8.8 mg/dL Normal 8.5-10.2 [facility] Comment on above: Order Comment: Speci men Type: BLOOD SPECIMENOrdering Facility: [facility] Address: [address] [place] [address] Performed By: #### 2 4321-2, , 2776-02 ####[facility] LABORATORYCLIA [id number] [place] [id number] [place] Chloride [Moles/Vol] 109 mmol/L High 97-105 [facility] Comment on above: Order Comment: Speci men Type: BLOOD SPECIMENOrdering Facility: [facility] Address: [address] [place], [place] [address] Performed By: #### 2 4321-2, , 2776-02 ####[facility] LABORATORYCLIA [id number] [place] [id number] [place] CO2 [Moles/Vol] 21 mmol/L Low 22-30 [facility] Comment on above: Order Comment: Speci men Type: BLOOD SPECIMENOrdering Facility: [facility] Address: [address] [place] [address] Performed By: #### 2 4321-2, , 2776-02 ####[facility] LABORATORYCLIA [id number] [place] [id number] [place] Creatinine [Mass/Vol] 0.75 mg/dL Normal 0.58-0.96 [facility] Comment on above: Order Comment: Speci men Type: BLOOD SPECIMENOrdering Facility: [facility] Address: [address] [place] [address] Performed By: #### 2 4321-2, , 2776-02 ####[facility] LABORATORYCLIA [id number] [place] [id number] [place] Creatinine and Glomerular filtration rate.predicted panel (S/P/Bld) 107 mL/min/1.73m??? Normal >=60 [facility] Comment on above: Order Comment: Speci men Type: BLOOD SPECIMENOrdering Facility: [facility] Address: [address] [place] [address] Result Comment: Jessica mated Glomerular Filtration Rate [...] #### 2 4321-2, , 2776-02 ####[facility] LABORATORYCLIA [id number] [place] [address] [place] Glucose [Mass/Vol] 91 mg/dL Normal 74-99 [facility] Comment on above: Order Comment: Speci men Type: BLOOD SPECIMENOrdering Facility: [facility] Address: [address] [place], [place] [address] Result Comment: The [place] Diabetes Association (ADA) provides guidance for cutoff [...] Standards of Medical Care in Diabetes 2016, [place] Diabetes [employer]. Diabetes Care. 2016.39(Suppl 1). Performed By: #### 2 4321-2, , 2776-02 ####[facility]ORATORYCLIA [id number] [place] [id number] [place] Potassium [Moles/Vol] 4.1 mmol/L Normal 3.7-5.1 [facility] Comment on above: Order Comment: Lyssai men Type: BLOOD SPECIMENOrdering Facility: [facility] Address: [address] [place], [place] [address] Performed By: #### 2 4321-2, , 2776-02 ####[facility] LABORATORYCLIA [id number] [place] [id number] [place] Sodium [Moles/Vol] 142 mmol/L Normal 136-144 [facility] Comment on above: Order Comment: Speci men Type: BLOOD SPECIMENOrdering Facility: [facility] Address: [address] [place], [place] [address] Performed By: #### 2 4321-2, , 2776-02 ####[facility] LABORATORYCLIA [id number] [place] [address] [place] Urea nitrogen [Mass/Vol] 6 mg/dL Low 7-21 [facility] Comment on above: Order Comment: Speci men Type: BLOOD SPECIMENOrdering Facility: [facility] Address: [address] [place] [address] Performed By: #### 2 4321-2, 43825-6, 2777-1 ####[facility] LABORATORYCLIA [id number] [place] [address] [place] CBC panel Auto (Bld)on 05-19 Erythrocyte distribution width (RBC) [Ratio] 12.9 % Normal 11.5-15.0 [facility] Comment on above: Order Comment: Speci men Type: BLOOD SPECIMENOrdering Facility: [facility] Address: [address] [place] [address] Performed By: #### 5 8410-2 ####[facility] LABORATORYCLIA [id number] [address] [place] Hematocrit (Bld) [Volume fraction] 36.0 % Normal 36.0-46.0 [facility] Comment on above: Order Comment: Speci men Type: BLOOD SPECIMENOrdering Facility: [facility] Address: [address] [place] [address] Performed By: #### 5 8410-2 ####[facility] LABORATORYCLIA [id number] [address] [place] Hemoglobin (Bld) [Mass/Vol] 12.4 g/dL Normal 11.5-15.5 [facility] Comment on above: Order Comment: Speci men Type: BLOOD SPECIMENOrdering Facility: [facility] Address: [address] [place] [address] Performed By: #### 5 8410-2 ####[facility] LABORATORYCLIA [id number] [place] [address] [place] MCH (RBC) [Entitic mass] 30.8 pg Normal 26.0-34.0 [facility] Comment on above: Order Comment: Speci men Type: BLOOD SPECIMENOrdering Facility: [facility] Address: [address] [place] [address] Performed By: #### 5 8410-2 ####[facility] LABORATORYCLIA [id number] [place] [address] [place] MCHC (RBC) [Mass/Vol] 34.4 g/dL Normal 30.5-36.0 [facility] Comment on above: Order Comment: Speci men Type: BLOOD SPECIMENOrdering Facility: [facility] Address: [address] [place] [address] Performed By: #### 5 8410-2 ####[facility] LABORATORYCLIA [id number] [place] [address] [place] MCV (RBC) [Entitic vol] 89.6 fL Normal 80.0-100.0 [facility] Comment on above: Order Comment: Speci men Type: BLOOD SPECIMENOrdering Facility: [facility] Address: [address] [place] [address] Performed By: #### 5 8410-2 ####[facility] LABORATORYCLIA [id number] [place] [address] [place] Nucleated RBC (Bld) [#/Vol] 10*3/uL Normal <0.01 [facility] Comment on above: Order Comment: Speci men Type: BLOOD SPECIMENOrdering Facility: [facility] Address: [address] [place] [address] Performed By: #### 5 8410-2 ####[facility] LABORATORYCLIA [id number] [place] [address] [place] Platelet mean volume (Bld) [Entitic vol] 11.4 fL Normal 9.0-12.7 [facility] Comment on above: Order Comment: Speci men Type: BLOOD SPECIMENOrdering Facility: [facility] Address: [address] [place] [address] Performed By: #### 5 8410-2 ####[facility] LABORATORYCLIA [id number] [place] [address] [place] Platelets (Bld) [#/Vol] 176 10*3/uL Normal 150-400 [facility] Comment on above: Order Comment: Speci men Type: BLOOD SPECIMENOrdering Facility: [facility] Address: [address] [place] [address] Performed By: #### 5 8410-2 ####[facility] LABORATORYCLIA [id number] [place] [id number] [place] RBC (Bld) [#/Vol] 4.02 10*6/uL Normal 3.90-5.20 [facility] Comment on above: Order Comment: Speci men Type: BLOOD SPECIMENOrdering Facility: [facility] Address: [address] [place] [address] Performed By: #### 5 8410-2 ####[facility] LABORATORYCLIA [id number] [place] [id number] [place] WBC (Bld) [#/Vol] 2.51 10*3/uL Low 3.70-11.00 [facility] Comment on above: Order Comment: Speci men Type: BLOOD SPECIMENOrdering Facility: [facility] Address: [address] [place] [address] Performed By: #### 5 8410-2 ####[facility] LABORATORYCLIA [id number] [place] [id number] [place] HISTORY PHYSICALon HISTORY PHYSICAL Normal [facility] Magnesium SerPl-ncon 05-19 Magnesium [Mass/Vol] 1.9 mg/dL Normal 1.7-2.3 [facility] Comment on above: Order Comment: Speci men Type: BLOOD SPECIMENOrdering Facility: [facility] Address: [address] [place] [address] Performed By: #### 2 4321-2, 84064-4, 2777-1 ####[facility]ORATORYCLIA [id number] [place] [id number] [place] NURSING PROGon 05-20-2023 NURSING PROG Normal [facility] NURSING PROG Normal [facility] NURSING PROG Normal [facility] NUTRITIONon 05-20-2023 NUTRITION Normal [facility] Phosphate SerPl-mCncon 05-19 Phosphate [Mass/Vol] 3.8 mg/dL Normal 2.7-4.8 [facility] Comment on above: Order Comment: Speci men Type: BLOOD SPECIMENOrdering Facility: [facility] Address: [address] [place] [address] Performed By: #### 2 4321-2, 92331-2, 2777-1 ####[facility] LABORATORYCLIA [id number] [place] [id number] [place] Upper GI endoscopyon 024 Upper GI endoscopy Normal [facility] XR ESOPHAGRAMon 05-20-2023 XR ESOPHAGRAM Normal [facility] Basic metabolic 2000 panelon 05-19-2023 Anion gap [Moles/Vol] 16 mmol/L Normal 9-18 [facility] Comment on above: Order Comment: Speci men Type: BLOOD SPECIMENOrdering Facility: [facility] Address: [address] [place] [address] Performed By: #### 2 4321-2 ####[facility] LABORATORYCLIA [id number] [place] [address] [place] Calcium [Mass/Vol] 8.4 mg/dL Low 8.5-10.2 [facility] Comment on above: Order Comment: Speci men Type: BLOOD SPECIMENOrdering Facility: [facility] Address: [address] [place] [address] Performed By: #### 2 4321-2 ####[facility] LABORATORYCLIA [id number] [place] [address] [place] Chloride [Moles/Vol] 104 mmol/L Normal 97-105 [facility] Comment on above: Order Comment: Speci men Type: BLOOD SPECIMENOrdering Facility: [facility] Address: [address] [place] [address] Performed By: #### 2 4321-2 ####[facility] LABORATORYCLIA [id number] [place] [id number] [place] CO2 [Moles/Vol] 15 mmol/L Low 22-30 [facility] Comment on above: Order Comment: Speci men Type: BLOOD SPECIMENOrdering Facility: [facility] Address: [address] [place] [address] Performed By: #### 2 4321-2 ####[facility] LABORATORYCLIA [id number] [place] [id number] [place] Creatinine [Mass/Vol] 0.71 mg/dL Normal 0.58-0.96 [facility] Comment on above: Order Comment: Geraldo marrero Type: BLOOD SPECIMENOrdering Facility: [facility] Address: [address] [place] [address] Performed By: #### 2 4321-2 ####[facility]ORATORYCLIA [id number] [address] Creatinine and Glomerular filtration rate.predicted panel (S/P/Bld) 115 mL/min/1.73m??? Normal >=60 [facility] Comment on above: Order Comment: Geraldo marrero Type: BLOOD SPECIMENOrdering Facility: [facility] Address: [address] [place] [address] Result Comment: Jessica mated Glomerular Filtration Rate [...] actual GFR. Performed By: #### 2 4321-2 ####[facility]ORATORYCLIA [id number] [place] [id number] [place] Glucose [Mass/Vol] 73 mg/dL Low 74-99 [facility] Comment on above: Order Comment: Geraldo marrero Type: BLOOD SPECIMENOrdering Facility: [facility] Address: [address] [place] [address] Result Comment: The [place] Diabetes Association (ADA) provides guidance for cutoff [...] Standards of Medical Care in Diabetes 2016, [place] [employer]. Diabetes Care. 2016.39(Suppl 1). Performed By: #### 2 4321-2 ####[facility]ORATORYCLIA [id number] [place] [id number] [place] [facility] Potassium [Moles/Vol] 4.1 mmol/L Normal 3.7-5.1 [facility] Comment on above: Order Comment: Speci men Type: BLOOD SPECIMENOrdering Facility: [facility] Address: [address] [place] [address] Performed By: #### 2 4321-2 ####[facility]ORATORYCLIA [id number] [place] [id number] [place] [facility] Sodium [Moles/Vol] 135 mmol/L Low 136-144 [facility] Comment on above: Order Comment: Speci men Type: BLOOD SPECIMENOrdering Facility: [facility] Address: [address] [place] [address] Performed By: #### 2 4321-2 ####[facility] LABORATORYCLIA [id number] [place] [id number] [place] Urea nitrogen [Mass/Vol] 8 mg/dL Normal 7-21 [facility] Comment on above: Order Comment: Speci men Type: BLOOD SPECIMENOrdering Facility: [facility] Address: [address] [place] [address] Performed By: #### 2 4321-2 ####[facility] LABORATORYCLIA [id number] [place] [id number] [facility] [place] CBC panel Auto (Bld)on 05-18 Erythrocyte distribution width (RBC) [Ratio] 12.6 % Normal 11.5-15.0 [facility] Comment on above: Order Comment: Speci men Type: BLOOD SPECIMENOrdering Facility: [facility] Address: [address] [place] [address] Performed By: #### 5 8410-2 ####[facility] LABORATORYCLIA [id number] [place] [address] [place] Hematocrit (Bld) [Volume fraction] 33.3 % Low 36.0-46.0 [facility] Comment on above: Order Comment: Speci men Type: BLOOD SPECIMENOrdering Facility: [facility] Address: [address] [place] [address] Performed By: #### 5 8410-2 ####[facility] LABORATORYCLIA [id number] [address] OF [facility] Hemoglobin (Bld) [Mass/Vol] 11.2 g/dL Low 11.5-15.5 [facility] Comment on above: Order Comment: Speci men Type: BLOOD SPECIMENOrdering Facility: [facility] Address: [address] [place] [address] Performed By: #### 5 8410-2 ####[facility] LABORATORYCLIA [id number] [address] MCH (RBC) [Entitic mass] 30.5 pg Normal 26.0-34.0 [facility] Comment on above: Order Comment: Speci men Type: BLOOD SPECIMENOrdering Facility: [facility] Address: [address] [place] [address] Performed By: #### 5 8410-2 ####[facility] LABORATORYCLIA [id number] [address] MCHC (RBC) [Mass/Vol] 33.6 g/dL Normal 30.5-36.0 [facility] Comment on above: Order Comment: Speci men Type: BLOOD SPECIMENOrdering Facility: [facility] Address: [address] [place] [address] Performed By: #### 5 8410-2 ####[facility] LABORATORYCLIA [id number] [address] MCV (RBC) [Entitic vol] 90.7 fL Normal 80.0-100.0 [facility] Comment on above: Order Comment: Speci men Type: BLOOD SPECIMENOrdering Facility: [facility] Address: [address] [place] [address] Performed By: #### 5 8410-2 ####[facility] LABORATORYCLIA [id number] [place] [id number] [place] Nucleated RBC (Bld) [#/Vol] 10*3/uL Normal <0.01 [facility] Comment on above: Order Comment: Speci men Type: BLOOD SPECIMENOrdering Facility: [facility] Address: [address] [place] [address] Performed By: #### 5 8410-2 ####[facility] LABORATORYCLIA [id number] [place] [address] [place] Platelet mean volume (Bld) [Entitic vol] 11.4 fL Normal 9.0-12.7 [facility] Comment on above: Order Comment: Speci men Type: BLOOD SPECIMENOrdering Facility: [facility] Address: [address] [place] [address] Performed By: #### 5 8410-2 ####[facility] LABORATORYCLIA [id number] [place] [address] [place] Platelets (Bld) [#/Vol] 150 10*3/uL Normal 150-400 [facility] Comment on above: Order Comment: Speci men Type: BLOOD SPECIMENOrdering Facility: [facility] [facility] Address: [address] [place] [address] Performed By: #### 5 8410-2 ####[facility] LABORATORYCLIA [id number] [place] [address] [place] RBC (Bld) [#/Vol] 3.67 10*6/uL Low 3.90-5.20 [facility] Comment on above: Order Comment: Speci men Type: BLOOD SPECIMENOrdering Facility: [facility] Address: [address] [place] [address] Performed By: #### 5 8410-2 ####[facility]ORATORYCLIA [id number] [place] [id number] [place] WBC (Bld) [#/Vol] 3.57 10*3/uL Low 3.70-11.00 [facility] Comment on above: Order Comment: Speci men Type: BLOOD SPECIMENOrdering Facility: [facility] Address: [address] [place] [address] Performed By: #### 5 8410-2 ####[facility] LABORATORYCLIA [id number] [place] [address] [place] [facility] NURSING PROG Normal [facility] NUTRITIONon 05-19-2023 NUTRITION Normal [facility] Urinalysis complete panel (U )on 05-19-2023 Bacteria LM.HPF (Urine sed) [#/Area] Few Abnormal None Seen [facility] Comment on above: Order Comment: Speci men Type: URINE SPECIMENOrdering Facility: [facility] Address: [address] [place] [address] Performed By: #### 2 4356-8 ####[facility] LABORATORYCLIA [id number] [place] [address] [place] Bilirubin Ql (U) Negative Normal Negative [facility] Comment on above: Order Comment: Speci men Type: URINE SPECIMENOrdering Facility: [facility] Address: [address] [place] [address] Performed By: #### 2 4356-8 ####[facility] LABORATORYCLIA [id number] [place] [address] [place] Clarity (Unsp spec) Turbid Abnormal Clear [facility] Comment on above: Order Comment: Speci men Type: URINE SPECIMENOrdering Facility: [facility] Address: [address] [place] [address] Performed By: #### 2 4356-8 ####[facility] LABORATORYCLIA [id number] [place] [address] [place] Color (U) Yellow Normal Yellow [facility] Comment on above: Order Comment: Speci men Type: URINE SPECIMENOrdering Facility: [facility] Address: [address] [place] [address] Performed By: #### 2 4356-8 ####[facility] LABORATORYCLIA [id number] [place] [address] [place] Epithelial cells LM.HPF (Urine sed) [#/Area] Moderate Normal [facility] Comment on above: Order Comment: Speci men Type: URINE SPECIMENOrdering Facility: [facility] Address: [address] [place] [address] Performed By: #### 2 4356-8 ####[facility] LABORATORYCLIA [id number] [place] [address] [place] Glucose Test strip (U) [Mass/Vol] Negative Normal Trace, Negative [facility] Comment on above: Order Comment: Speci men Type: URINE SPECIMENOrdering Facility: [facility] Address: [address] [place] [address] Performed By: #### 2 4356-8 ####[facility] LABORATORYCLIA [id number] [place] [address] [place] Hemoglobin Ql (U) Trace Normal Negative, Trace [facility] Comment on above: Order Comment: Speci men Type: URINE SPECIMENOrdering Facility: [facility] Address: [address] [place] [address] Performed By: #### 2 4356-8 ####[facility]ORATORYCLIA [id number] [place] [address] [place] Ketones Ql (U) 2+ Abnormal Negative, Trace [facility] Comment on above: Order Comment: Speci men Type: URINE SPECIMENOrdering Facility: [facility] Address: [address] [place] [address] Performed By: #### 2 4356-8 ####[facility]ORATORYCLIA [id number] [place] [address] [place] Leukocyte esterase Test strip Ql (U) 500 Patito/uL Abnormal Negative, 25 Patito/uL [facility] Comment on above: Order Comment: Speci men Type: URINE SPECIMENOrdering Facility: [facility] Address: [address] [place] [address] Performed By: #### 2 4356-8 ####[facility]ORATORYCLIA [id number] [place] [address] [place] Nitrite Ql (U) Negative Normal Negative [facility] Comment on above: Order Comment: Speci men Type: URINE SPECIMENOrdering Facility: [facility] Address: [address] [place] [address] Performed By: #### 2 4356-8 ####[facility]ORATORYCLIA [id number] [place] [id number] [place] pH (U) 6.0 [pH] Normal 5.0-8.0 [facility] Comment on above: Order Comment: Speci men Type: URINE SPECIMENOrdering Facility: [facility] Address: [address] [place] [address] Performed By: #### 2 4356-8 ####[facility] LABORATORYCLIA [id number] [place] [address] [place] Protein (U) [Mass/Vol] Negative Normal Trace, Negative [facility] Comment on above: Order Comment: Speci men Type: URINE SPECIMENOrdering Facility: [facility] Address: [address] [place] [address] Performed By: #### 2 4356-8 ####[facility]ORATORYCLIA [id number] [place] [address] [place] RBC LM.HPF (Urine sed) [#/Area] /[HPF] Abnormal 0-3 /HPF [facility] Comment on above: Order Comment: Speci men Type: URINE SPECIMENOrdering Facility: [facility] Address: [address] [place] [address] Performed By: #### 2 4356-8 ####[facility] LABORATORYCLIA [id number] [place] [id number] [place] Specific gravity (U) [Rel density] 1.012 Normal 1.005-1.030 [facility] Comment on above: Order Comment: Speci men Type: URINE SPECIMENOrdering Facility: [facility] Address: [address] [place] [address] Performed By: #### 2 4356-8 ####[facility] LABORATORYCLIA [id number] [place] [id number] [place] Urobilinogen Ql (U) Normal Normal Normal [facility] Comment on above: Order Comment: Speci men Type: URINE SPECIMENOrdering Facility: [facility] Address: [address] [place] [address] Performed By: #### 2 4356-8 ####[facility]ORATORYCLIA [id number] [place] [address] [place] WBC LM.HPF (Urine sed) [#/Area] /[HPF] Abnormal 0-5 /HPF [facility] Comment on above: Order Comment: Speci men Type: URINE SPECIMENOrdering Facility: [facility] Address: [address] [place] [address] Performed By: #### 2 4356-8 ####[facility] LABORATORYCLIA [id number] [address] [place] .Interpretation:on HCV Ab IA Ql Comment Invalid Interpretation Code [facility] Comment on above: Result Comment: Not infected with HCV unless early or acute infection issuspected (which may be delayed in an immunocompromisedindividual), or other evidence exists to indicate HCV infection.Performed at: [facility] [id number] [place], [place] [id number] PhD Cami Neri Performed By: #### 1 4237573, 9685246, 8423043616, 8973608, 4405891258, 546204588, 2746105, 3089761, 47745861 ####[facility] [address] [place] [address] 25([place])D3 [facility] 20[facility] 25-hydroxyvitamin D3 [Mass/Vol] 36.1 ng/mL Normal 31.0-80.0 [facility] Comment on above: Order Comment: Speci men Type: BLOOD SPECIMENOrdering Facility: [facility] Address: [address] [place] [address] Performed By: #### 1 989-3 ####[facility] LABCLIA [id number] [address] [place] Acute Hepatitis A B C Panelo n 05-18-2023 HAV IgM IA Ql Negative Invalid Interpretation Code Negative [facility] Comment on above: Performed By: #### 1 7040573, 4133612, 4982275235, 2478282, 6058226977, 491696267, 2449451, 0218153, 36384999 ####[facility] [address] [place] [address] HBV core IgM IA Ql Negative Invalid Interpretation Code Negative [facility] Comment on above: Performed By: #### 1 9599940, 1993990, 6223372865, 8391624, 3352086024, 294787166, 6885200, 8119903, 38482079 ####[facility] [address] [place] [address] HBV surface Ag IA Ql Negative Invalid Interpretation Code Negative [facility] Comment on above: Performed By: #### 1 3468962, 8480389, 9259678904, 9465179, 5839500165, 930804074, 8635920, 9095132, 26643283 ####[facility] [address] [place] [address] HCV IgG IA Ql Non-Reactive Invalid Interpretation Code Non Reactive [facility] Comment on above: Result Comment: Perf ormed at: [facility] [address] [id number] PhD Cami Neri Performed By: #### 1 8402085, 6111113, 6508425713, 7618033, 8765693708, 098624450, 3610403, 4674369, 87178208 ####[facility] [address] [place] [address] CBC W Auto Differential pane l (Bld)on 05-18-2023 Basophils (Bld) [#/Vol] 0.03 10*3/uL Normal <0.11 [facility] Comment on above: Order Comment: Speci men Type: BLOOD SPECIMENOrdering Facility: [facility] Address: [address] [place] [address] Performed By: #### 5 7021-8 ####[facility] LABORATORYCLIA [id number] [place] [address] [place] Basophils/100 WBC (Bld) 0.6 % Normal [facility] Comment on above: Order Comment: Speci men Type: BLOOD SPECIMENOrdering Facility: [facility] Address: [address] [place] [address] Performed By: #### 5 7021-8 ####[facility] LABORATORYCLIA [id number] [place] [id number] [place] Differential cell count method Nom (Bld) Auto Normal [facility] Comment on above: Order Comment: Speci men Type: BLOOD SPECIMENOrdering Facility: [facility] Address: [address] [place] [address] Performed By: #### 5 7021-8 ####[facility] LABORATORYCLIA [id number] [place] [address] [place] Eosinophils (Bld) [#/Vol] 0.06 10*3/uL Normal <0.46 [facility] Comment on above: Order Comment: Speci men Type: BLOOD SPECIMENOrdering Facility: [facility] Address: [address] [place] [address] Performed By: #### 5 7021-8 ####[facility] LABORATORYCLIA [id number] [address] [place] Eosinophils/100 WBC (Bld) 1.3 % Normal [facility] Comment on above: Order Comment: Speci men Type: BLOOD SPECIMENOrdering Facility: [facility] Address: [address] [place] [address] Performed By: #### 5 7021-8 ####[facility] LABORATORYCLIA [id number] [place] [id number] [place] Erythrocyte distribution width (RBC) [Ratio] 13.1 % Normal 11.5-15.0 [facility] Comment on above: Order Comment: Speci men Type: BLOOD SPECIMENOrdering Facility: [facility] Address: [address] [place] [address] Performed By: #### 5 7021-8 ####[facility] LABORATORYCLIA [id number] [place] [address] [place] Hematocrit (Bld) [Volume fraction] 43.5 % Normal 36.0-46.0 [facility] Comment on above: Order Comment: Speci men Type: BLOOD SPECIMENOrdering Facility: [facility] Address: [address] [place] [address] Performed By: #### 5 7021-8 ####[facility] LABORATORYCLIA [id number] [place] [id number] [place] Hemoglobin (Bld) [Mass/Vol] 14.8 g/dL Normal 11.5-15.5 [facility] Comment on above: Order Comment: Speci men Type: BLOOD SPECIMENOrdering Facility: [facility] Address: [address] [place] [address] Performed By: #### 5 7021-8 ####[facility] LABORATORYCLIA [id number] [place] [address] [place] Immature granulocytes (Bld) [#/Vol] 10*3/uL Normal <0.10 [facility] Comment on above: Order Comment: Speci men Type: BLOOD SPECIMENOrdering Facility: [facility] Address: [address] [place] [address] Performed By: #### 5 7021-8 ####[facility] LABORATORYCLIA [id number] [place] [address] [place] Immature granulocytes/100 WBC (Bld) 0.2 % Normal [facility] Comment on above: Order Comment: Speci men Type: BLOOD SPECIMENOrdering Facility: [facility] Address: [address] [place] [address] Performed By: #### 5 7021-8 ####[facility] LABORATORYCLIA [id number] [place] [id number] [place] Lymphocytes (Bld) [#/Vol] 1.27 10*3/uL Normal 1.00-4.00 [facility] Comment on above: Order Comment: Speci men Type: BLOOD SPECIMENOrdering Facility: [facility] Address: [address] [place] [address] Performed By: #### 5 7021-8 ####[facility] LABORATORYCLIA [id number] [address] [place] Lymphocytes/100 WBC (Bld) 26.5 % Normal [facility] Comment on above: Order Comment: Speci men Type: BLOOD SPECIMENOrdering Facility: [facility] Address: [address] [place] [address] Performed By: #### 5 7021-8 ####[facility] LABORATORYCLIA [id number] [address] [facility] MCH (RBC) [Entitic mass] 30.4 pg Normal 26.0-34.0 [facility] Comment on above: Order Comment: Speci men Type: BLOOD SPECIMENOrdering Facility: [facility] Address: [address] [place] [address] Performed By: #### 5 7021-8 ####[facility] LABORATORYCLIA [id number] [address] [place] MCHC (RBC) [Mass/Vol] 34.0 g/dL Normal 30.5-36.0 [facility] Comment on above: Order Comment: Speci men Type: BLOOD SPECIMENOrdering Facility: [facility] Address: [address] [place] [address] Performed By: #### 5 7021-8 ####[facility] LABORATORYCLIA [id number] [address] [place] MCV (RBC) [Entitic vol] 89.3 fL Normal 80.0-100.0 [facility] Comment on above: Order Comment: Speci men Type: BLOOD SPECIMENOrdering Facility: [facility] Address: [address] [place] [address] Performed By: #### 5 7021-8 ####[facility] LABORATORYCLIA [id number] [address] Monocytes (Bld) [#/Vol] 0.26 10*3/uL Normal <0.87 [facility] Comment on above: Order Comment: Speci men Type: BLOOD SPECIMENOrdering Facility: [facility] Address: [address] [place] [address] Performed By: #### 5 7021-8 ####[facility] LABORATORYCLIA [id number] [place] [id number] [place] Monocytes/100 WBC (Bld) 5.4 % Normal [facility] Comment on above: Order Comment: Speci men Type: BLOOD SPECIMENOrdering Facility: [facility] Address: [address] [place] [address] Performed By: #### 5 7021-8 ####[facility] LABORATORYCLIA [id number] [place] [address] [place] Neutrophils (Bld) [#/Vol] 3.16 10*3/uL Normal 1.45-7.50 [facility] Comment on above: Order Comment: Speci men Type: BLOOD SPECIMENOrdering Facility: [facility] Address: [address] [place] [address] Performed By: #### 5 7021-8 ####[facility] LABORATORYCLIA [id number] [place] [id number] [place] Neutrophils/100 WBC (Bld) 66.0 % Normal [facility] Comment on above: Order Comment: Speci men Type: BLOOD SPECIMENOrdering Facility: [facility] Address: [address] [place] [address] Performed By: #### 5 7021-8 ####[facility] LABORATORYCLIA [id number] [place] [id number] [place] Nucleated RBC (Bld) [#/Vol] 10*3/uL Normal <0.01 [facility] Comment on above: Order Comment: Speci men Type: BLOOD SPECIMENOrdering Facility: [facility] Address: [address] [place] [address] Performed By: #### 5 7021-8 ####[facility] LABORATORYCLIA [id number] [place] [id number] [place] Nucleated RBC/100 WBC (Bld) [Ratio] 0.0 /100 WBC Normal [facility] Comment on above: Order Comment: Speci men Type: BLOOD SPECIMENOrdering Facility: [facility] Address: [address] [place] [address] Performed By: #### 5 7021-8 ####[facility] LABORATORYCLIA [id number] [place] [id number] [place] Platelet mean volume (Bld) [Entitic vol] 11.8 fL Normal 9.0-12.7 [facility] Comment on above: Order Comment: Speci men Type: BLOOD SPECIMENOrdering Facility: [facility] Address: [address] [place] [address] Performed By: #### 5 7021-8 ####[facility] LABORATORYCLIA [id number] [place] [id number] [place] Platelets (Bld) [#/Vol] 226 10*3/uL Normal 150-400 [facility] Comment on above: Order Comment: Speci men Type: BLOOD SPECIMENOrdering Facility: [facility] Address: [address] [place] [address] Performed By: #### 5 7021-8 ####[facility] LABORATORYCLIA [id number] [place] [id number] [place] RBC (Bld) [#/Vol] 4.87 10*6/uL Normal 3.90-5.20 [facility] Comment on above: Order Comment: Speci men Type: BLOOD SPECIMENOrdering Facility: [facility] Address: [address] [place] [address] Performed By: #### 5 7021-8 ####[facility] LABORATORYCLIA [id number] [place] [id number] [place] WBC (Bld) [#/Vol] 4.79 10*3/uL Normal 3.70-11.00 [facility] Comment on above: Order Comment: Speci men Type: BLOOD SPECIMENOrdering Facility: [facility] Address: [address] [place] [address] Performed By: #### 5 7021-8 ####[facility] LABORATORYCLIA [id number] [place] [id number] [place] CNPNon 05-18-2023 CNPN Normal [facility] 05-18-2023 CONSULT Normal [facility] COPPER BLOODon 05-18-2023 Copper [Mass/Vol] 91 ug/dL Normal 80-155 [facility] Comment on above: Order Comment: Speci men Type: BLOOD SPECIMENOrdering Facility: [facility] Address: [address] [place] [address] Result Comment: This test was developed and its performance characteristics determined by [facility] [place] ([facility]). It has not been cleared or approved by the FDA. [facility] is regulated under CLIA as qualified to perform high-complexity testing. This test is used for clinical purposes. It should not be regarded as investigational or for research. Performed By: #### C OPPER ####[facility] LABCLIA [id number] [place] [address] [place] Comprehensive metabolic 2000 panelon 05-18-2023 Albumin [Mass/Vol] 4.7 g/dL Normal 3.9-4.9 [facility] Comment on above: Order Comment: Speci men Type: BLOOD SPECIMENOrdering Facility: [facility] Address: [address] [place] [address] Performed By: #### 2 4323-8, 3, ####[facility] LABORATORYCLIA [id number] [place] [id number] [place] ALP [Catalytic activity/Vol] 76 U/L Normal 34-123 [facility] Comment on above: Order Comment: Speci men Type: BLOOD SPECIMENOrdering Facility: [facility] Address: [address] [place] [address] Performed By: #### 2 4323-8, 3, ####[facility]ORATORYCLIA [id number] [place] [id number] [place] ALT [Catalytic activity/Vol] 19 U/L Normal 7-38 [facility] Comment on above: Order Comment: Speci men Type: BLOOD SPECIMENOrdering Facility: [facility] Address: [address] [place] [address] [place] [address] Performed By: #### 2 4323-8, 3040-3, ####[facility] LABORATORYCLIA [id number] [place] [address] [place] Anion gap [Moles/Vol] 14 mmol/L Normal 9-18 [facility] Comment on above: Order Comment: Speci men Type: BLOOD SPECIMENOrdering Facility: [facility] Address: [address] [place] [address] Performed By: #### 2 4323-8, 0-3, ####[facility] LABORATORYCLIA [id number] [place] [id number] [place] AST [Catalytic activity/Vol] 42 U/L High 13-35 [facility] Comment on above: Order Comment: Speci men Type: BLOOD SPECIMENOrdering Facility: [facility] Address: [address] [place] [address] Performed By: #### 2 4323-8, 0-3, ####[facility]ORATORYCLIA [id number] [place] [id number] [place] Bilirubin [Mass/Vol] 0.4 mg/dL Normal 0.2-1.3 [facility] Comment on above: Order Comment: Speci men Type: BLOOD SPECIMENOrdering Facility: [facility] Address: [address] [place] [address] Performed By: #### 2 4323-8, 0-3, ####[facility] LABORATORYCLIA [id number] [place] [id number] [place] Calcium [Mass/Vol] 9.2 mg/dL Normal 8.5-10.2 [facility] Comment on above: Order Comment: Speci men Type: BLOOD SPECIMENOrdering Facility: [facility] Address: [address] [place] [address] Performed By: #### 2 4323-8, 3040-3, ####[facility] LABORATORYCLIA [id number] [place] [address] [place] Chloride [Moles/Vol] 106 mmol/L High 97-105 [facility] Comment on above: Order Comment: Speci men Type: BLOOD SPECIMENOrdering Facility: [facility] Address: [address] [place] [id number] Performed By: #### 2 4323-8, 0-3, ####[facility] LABORATORYCLIA [id number] [place] [id number] [place] CO2 [Moles/Vol] 21 mmol/L Low 22-30 [facility] Comment on above: Order Comment: Speci men Type: BLOOD SPECIMENOrdering Facility: [facility] Address: [address] [place] [address] Performed By: #### 2 4323-8, 3, ####[facility] LABORATORYCLIA [id number] [place] [id number] [place] Creatinine [Mass/Vol] 0.82 mg/dL Normal 0.58-0.96 [facility] Comment on above: Order Comment: Speci men Type: BLOOD SPECIMENOrdering Facility: [facility] Address: [address] [place] [address] Performed By: #### 2 4323-8, 3, ####[facility] LABORATORYCLIA [id number] [address] Creatinine and Glomerular filtration rate.predicted panel (S/P/Bld) 96 mL/min/1.73m??? Normal >=60 [facility] Comment on above: Order Comment: Speci men Type: BLOOD SPECIMENOrdering Facility: [facility] Address: [address] [place] [address] Result Comment: Jessica mated Glomerular Filtration Rate [...] GFR. Performed By: #### 2 4323-8, 3040-3, ####[facility]ATORYCLIA [id number] [place] [address] [place] Glucose [Mass/Vol] 79 mg/dL Normal 74-99 [facility] Comment on above: Order Comment: Speci men Type: BLOOD SPECIMENOrdering Facility: [facility] Address: [address] [place], [place] [id number] Result Comment: The [place] Diabetes Association (ADA) provides guidance for cutoff [...] Standards of Medical Care in Diabetes 2016, [place] Diabetes Association. Diabetes Care. 2016.39(Suppl 1). Performed By: #### 2 4323-8, 3039-3, ####[facility]ORYCLIA [id number] [place] [id number] [place] Potassium [Moles/Vol] 4.3 mmol/L Normal 3.7-5.1 [facility] Comment on above: Order Comment: Speci men Type: BLOOD SPECIMENOrdering Facility: [facility] Address: [address] [place] [address] Performed By: #### 2 4323-8, 0-3, ####[facility]ORATORYCLIA [id number] [place] [address] [place] Protein [Mass/Vol] 7.4 g/dL Normal 6.3-8.0 [facility] Comment on above: Order Comment: Speci men Type: BLOOD SPECIMENOrdering Facility: [facility] Address: [address] [place] [address] Performed By: #### 2 4323-8, 0-3, ####[facility]ATORYCLIA [id number] [place] [address] [place] Sodium [Moles/Vol] 141 mmol/L Normal 136-144 [facility] Comment on above: Order Comment: Speci men Type: BLOOD SPECIMENOrdering Facility: [facility] Address: [address] [place] [address] Performed By: #### 2 4323-8, 3, ####[facility]ATORYCLIA [id number] [place] [id number] [place] Urea nitrogen [Mass/Vol] 7 mg/dL Normal 7-21 [facility] Comment on above: Order Comment: Speci men Type: BLOOD SPECIMENOrdering Facility: [facility] Address: [address] [place] [address] Performed By: #### 2 4323-8, 3, ####[facility]ATORYCLIA [id number] [place] [address] [place] Copper Lvlon 05-18-2023 Copper [Mass/Vol] 90 microgram/dL Invalid Interpretation Code 80-158 [facility] Comment on above: Result Comment: This test was developed and its performance characteristicsdetermined by [employer]. It has not been cleared or approvedby the Food and Drug Administration.Detection Limit = 5Performed at: Lab[address] [id number] MD Jhonathan Dai Performed By: #### 1 0015705, 6071637, [id number], 7724438, 8562673253, 186484830, 8581001, 6062174, 17811251 ####[facility] [address] [place] [address] ED PROV NOTEon 05-18-2023 ED PROV NOTE Normal [facility] Folate SerPl-mCncon 05-18-19 24 Folate [Mass/Vol] 10.3 ng/mL Normal >4.7 [facility] Comment on above: Order Comment: Speci men Type: BLOOD SPECIMENOrdering Facility: [facility] Address: [address] [place], [place] [address] Performed By: #### 1 4338-8, 3034-6, 29687-4, 2131-10, 8 ####[facility] LABCLIA [id number] [address] [address] [place] HIV Screen 4th Generation wR fxon 05-18-2023 HIV 1+2 Ab+HIV1 p24 Ag IA Ql Non-Reactive Invalid Interpretation Code Non Reactive [facility] Comment on above: Result Comment: HIV NegativeHIV-1/HIV-2 antibodies and HIV-1 p24 antigen were NOT detected.There is no laboratory evidence of HIV infection.Performed at: LabAnthony Ville [id number] [place], [place] [id number] PhD Cami Neri Performed By: #### 1 6756615, 4339006, 5808077427, 1737937, 5356073073, 475084139, 6769568, 7704261, 88730550 ####[facility] [address] [place] [address] Iron and Iron binding capaci ty panelon 05-18-2023 Iron [Mass/Vol] 81 ug/dL Normal 41-186 [facility] Comment on above: Order Comment: Speci men Type: BLOOD SPECIMENOrdering Facility: [facility] Address: [address] [place] [address] Performed By: #### 1 4338-8, 3034-6, 18314-7, 2131-10, 2283-09 ####[facility] LABCLIA [id number] [place] [id number] [place] Iron binding capacity [Mass/Vol] 292 ug/dL Normal 232-386 [facility] Comment on above: Order Comment: Speci men Type: BLOOD SPECIMENOrdering Facility: [facility] Address: [address] [place] [address] Performed By: #### 1 4338-8, 3034-6, 67889-2, 2131-10, 2283-09 ####[facility] LABCLIA [id number] [place] [address] [place] Iron/TIBC [Molar ratio] 27.7 % Normal 15.0-57.0 [facility] Comment on above: Order Comment: Speci men Type: BLOOD SPECIMENOrdering Facility: [facility] Address: [address] [place] [address] Performed By: #### 1 4338-8, 3034-6, 61931-3, 2132-9, 2284-8 ####[facility] LABCLIA [id number] [place] [address] [place] Lipase SerPl-cCncon 05-18-19 24 Lipase [Catalytic activity/Vol] 37 U/L Normal 16-61 [facility] Comment on above: Order Comment: Speci men Type: BLOOD SPECIMENOrdering Facility: [facility] Address: [address] [place] [address] Performed By: #### 2 4323-8, 3040-3, 40872-4 ####[facility]ORATORYCLIA [id number] [place] [id number] [place] Magnesium SerPl-mCncon 05-17 Magnesium [Mass/Vol] 2.1 mg/dL Normal 1.7-2.3 [facility] Comment on above: Order Comment: Speci men Type: BLOOD SPECIMENOrdering Facility: [facility] Address: [address] [place] [address] Performed By: #### 2 4323-8, 3040-3, 40076-5 ####[facility]ORATORYCLIA [id number] [place] [id number] [place] NURSING PROGon 05-18-2023 NURSING PROG Normal [facility] Prealb SerPl-mCncon 05-18-19 24 Prealbumin [Mass/Vol] 13 mg/dL Low 17-36 [facility] Comment on above: Order Comment: Speci men Type: BLOOD SPECIMENOrdering Facility: [facility] Address: [address] [place] [address] Performed By: #### 1 4338-8, 3034-6, 10003-3, 2-9, 2283-8 ####[facility] LABCLIA [id number] [place] [address] [place] Transferrin SerPl-mCncon Transferrin [Mass/Vol] 239 mg/dL Normal 200-360 [facility] Comment on above: Order Comment: Speci men Type: BLOOD SPECIMENOrdering Facility: [facility] Address: [address] [place] [address] Performed By: #### 1 4338-8, 3034-6, 15989-7, 2131-9, 8 ####[facility] LABIA [id number] [place] [address] [place] VITAMIN B1 PLASMAon 05-18-19 24 VITAMIN B1, PLASMA 5 nmol/L Normal 4-15 [facility] Comment on above: Order Comment: Speci men Type: BLOOD SPECIMENOrdering Facility: [facility] Address: [address] [place] [address] Result Comment: INTE RPRETIVE DATA: Vitamin B1, PlasmaThiamine (vitamin B1) is reported. However, thiamine diphosphate(TDP), the biologically active form of thiamine, is not found inmeasurable concentrations in plasma, and is best determined inwhole blood specimens. Plasma thiamine concentration reflectsrecent intake rather than body stores.This test was developed and its performance characteristicsdetermined by [facility] [employer]. It has not been cleared orapproved by the [place] Food and Drug Administration. This test wasperformed in a CLIA certified laboratory and is intended forclinical purposes.Performed By: [facility] [place], [place] [address]Vsphrywstl Director: Kirt Murphy MD, PhDCLIA Number: [id number] Performed By: #### P VITB1 ####ML Gracious EloiseIA [id number] [place] [address] VITAMIN B6/PYRIDOXINon 05-17 VITAMIN B6 39.1 nmol/L Normal 20.0-125.0 [facility] Comment on above: Order Comment: Speci men Type: BLOOD SPECIMENOrdering Facility: [facility] Address: [address] [place] [address] Result Comment: INTE RPRETIVE INFORMATION: Vitamin B6 (Pyridoxal 5-Phosphate)Pyridoxal 5'-phosphate measured in a specimen collected followingan 8-hour or overnight fast accurately indicates vitamin U6uphpicdbadj status. Non-fasting specimen concentration reflectsrecent vitamin intake.This test was developed and its performance characteristicsdetermined by [facility]. It has not been cleared orapproved by the [place] Food and Drug Administration. This test wasperformed in a CLIA certified laboratory and is intended forclinical purposes.Performed By: [facility] [place] [address]Sleeomohed Director: Kirt Murphy MD, PhDCLIA Number: [id number] Performed By: #### V ITB6 ####[facility] HOSPITALIA [id number] [place] [address] Vit A SerPl-mCncon 4 Retinol [Mass/Vol] 0.17 mg/L Low 0.30-1.20 [facility] Comment on above: Order Comment: Speci [facility] Type: BLOOD SPECIMENOrdering Facility: [facility] Address: [address] [place] [address] Result Comment: This test was developed and its performance characteristics determined by [facility] [place] ([facility]). It has not been cleared or approved by the FDA. -[facility] is regulated under CLIA as qualified to perform high-complexity testing. This test is used for clinical purposes. It should not be regarded as investigational or for research. Performed By: #### 2 923-1 ####[facility] LABCLIA [id number] [place] [address] [place] Vit B12 SerPl-mCncon 024 Cobalamin (Vitamin B12) [Mass/Vol] 1155 pg/mL Normal 232-1245 [facility] Comment on above: Order Comment: [facility] Type: BLOOD SPECIMENOrdering Facility: [facility] Address: [address] [place] [address] Performed By: #### 1 4338-8, 3034-6, 31564-2, 2132-9, 2284-8 ####[facility] LABCLIA [id number] [facility]ITALJose JAMES T07FMPIEDFVANICHOLAS V[place] [address] [place] ZINC, WHOLE BLOODon 05-18-19 24 ZINC, WHOLE BLOOD 670.6 ug/dL Normal 440.0-860.0 [facility] Comment on above: Order Comment: Speci men Type: BLOOD SPECIMENOrdering Facility: [facility] Address: [address] [facility] [address] Result Comment: INTE RPRETIVE DATA: Zinc Quantitative, [...] was developed and its performance characteristicsdetermined by [facility] [employer]. It has not been cleared orapproved by the US Food and Drug Administration. This test wasperformed in a CLIA certified laboratory and is intended forclinical purposes.Performed By: [facility] [place], [place] [address]Elpdiugogz Director: Kirt Murphy MD, PhDCLIA Number: [id number] Performed By: #### Z INCWB ####[facility] LABORATORIESCLIA [id number] [place] [address] CBC w/ Auto Diffon 4 Basophils/100 WBC (Bld) 0.7 % Normal 0.0-2.0 [facility] Comment on above: Performed By: #### 2 482483, 3987235, 2216978, 74391371 ####[facility] [address] [place] [address] Basophils/Leukocyte s Auto (Bld) [Pure # fraction] 0.0 E9/L Normal 0.0-0.2 [facility] Comment on above: Performed By: #### 2 097468, 6762250, 2285765, 42604571 ####[address] [address] Eosinophils (Bld) [#/Vol] 0.1 E9/L Normal 0.0-0.5 [facility] Comment on above: Performed By: #### 2 814827, 7383806, 9095356, 68538255 ####[address] [address] Eosinophils/100 WBC (Bld) 1.9 % Normal 0.0-8.0 [facility] Comment on above: Performed By: #### 2 745906, 0803240, 2901189, 89534645 ####[address] [address] Erythrocyte distribution width (RBC) [Ratio] 14.1 % Normal 10.9-14.2 [facility] Comment on above: Performed By: #### 2 535255, 2536915, 9588956, 27207964 ####[address] [address] Hematocrit (Bld) [Volume fraction] 41.1 % Normal 34.0-46.0 [facility] Comment on above: Performed By: #### 2 651266, 1114764, 9485573, 70523301 ####[address] [address] Hemoglobin (Bld) [Mass/Vol] 13.7 g/dL Normal 12.0-16.0 [facility] Comment on above: Performed By: #### 2 843492, 0772438, 6384304, 56372123 ####[address] [address] Lymphocytes (Bld) [#/Vol] 1.4 E9/L Normal 1.0-4.0 [facility] Comment on above: Performed By: #### 2 338476, 6766640, 3708356, 97966221 ####[address] [place] [address] Lymphocytes/100 WBC (Bld) 38.9 % Normal 14.0-50.0 [facility] Comment on above: Performed By: #### 2 484976, 0781168, 9686690, 69428737 ####[address] [address] MCH (RBC) [Entitic mass] 29.8 pg Normal 27.0-34.0 [facility] Comment on above: Performed By: #### 2 087764, 2735847, 1625031, 46065582 ####[address] [address] MCHC (RBC) [Mass/Vol] 33.3 g/dL Normal 31.4-36.0 [facility] Comment on above: Performed By: #### 2 289499, 2754613, 9717421, 70754046 ####[address] [address] MCV (RBC) [Entitic vol] 89.5 fL Normal 80.0-100.0 [facility] Comment on above: Performed By: #### 2 332841, 8959907, 0933720, 78193041 ####[address] [address] Monocytes (Bld) [#/Vol] 0.2 E9/L Normal 0.2-1.0 [facility] Comment on above: Performed By: #### 2 042410, 4029939, 1849168, 16524061 ####[address] [address] Neutrophils (Bld) [#/Vol] 1.9 E9/L Low 2.0-7.5 [facility] Comment on above: Performed By: #### 2 831900, 4513132, 5116904, 21260022 ####[address] [address] Neutrophils/100 WBC (Bld) 52.6 % Normal 36.0-75.0 [facility] Comment on above: Performed By: #### 2 373855, 2076705, 7889713, 35120294 ####[facility] [address] [place] [address] Platelet 195.0 E9/L Normal 150.0-500.0 [facility] Comment on above: Performed By: #### 2 623663, 9596679, 9294721, 45136594 ####[address] [address] Platelet mean volume (Bld) [Entitic vol] 9.0 fL Normal 6.4-10.8 [facility] Comment on above: Performed By: #### 2 249291, 8552292, 4496544, 04985035 ####[address] [address] RBC (Bld) [#/Vol] 4.6 E12/L Normal 4.3-5.9 [facility] Comment on above: Performed By: #### 2 388984, 1328954, 0067329, 54543085 ####[address] [address] WBC corrected for nucl RBC Auto (Bld) [#/Vol] 3.6 E9/L Low 4.0-11.0 [facility] Comment on above: Performed By: #### 2 026584, 6710501, 4101416, 02124868 ####[address] [address] CHEMISTRYOrdered By: SYSTEM SYSTEM on 05-17-2023 Albumin [...] 05-17-2023 Albumin [Mass/Vol] 4.5 g/dL Normal 3.3-5.0 [facility] Comment on above: Performed By: #### 2 089532, 7874375, 9802647, 91612700 ####[place] [address] [place] [address] Albumin/Globulin (S) [Mass conc ratio] 1.6 Normal 1.1-2.2 [facility] Comment on above: Performed By: #### 2 831173, 6758495, 0259860, 95329999 ####[facility] [address] [place] [address] ALP [Catalytic activity/Vol] 61 Int._Unit/L Normal 21-98 [facility] Comment on above: Performed By: #### 2 303890, 7459481, 3309228, 42133344 ####[facility] [address] [place] [address] ALT No additional P-5'-P [Catalytic activity/Vol] 17 Int._Unit/L Normal 6-46 [facility] Comment on above: Performed By: #### 2 157197, 8008558, 9674267, 59157809 ####[address] [address] Anion gap [Moles/Vol] 12 mmol/L Normal 6-16 [facility] Comment on above: Performed By: #### 2 531224, 2068278, 3039596, 52836274 ####[address] [address] AST [Catalytic activity/Vol] 30 Int._Unit/L Normal 5-43 [facility] Comment on above: Performed By: #### 2 241910, 5696993, 0721747, 87223753 ####[address] [address] Bilirubin [Mass/Vol] 0.5 mg/dL Normal 0.0-1.1 [facility] Comment on above: Performed By: #### 2 045201, 6475841, 1022240, 28394144 ####[facility] [address] [place] [address] Calcium [Mass/Vol] 9.2 mg/dL Normal 8.9-11.1 [facility] Comment on above: Performed By: #### 2 569418, 3231076, 2520839, 69485484 ####[facility] [address] [place] [address] Chloride [Moles/Vol] 106 mmol/L Normal 101-111 [facility] Comment on above: Performed By: #### 2 863931, 9690973, 7045044, 56873530 ####[facility] [address] [place] [address] CO2 [Moles/Vol] 24 mmol/L Normal 21-31 [facility] Comment on above: Performed By: #### 2 087684, 4883341, 9041126, 38015667 ####[facility] [address] [place] [address] Creatinine [Mass/Vol] 0.9 mg/dL Normal 0.5-1.3 [facility] Comment on above: Performed By: #### 2 495880, 9933659, 6911043, 88050011 ####[facility] [address] [place] [address] Globulin (S) [Mass/Vol] 2.9 g/dL Normal 1.4-4.0 [facility] Comment on above: Performed By: #### 2 404848, 2488929, 0870010, 01527764 ####[facility] [address] [place] [address] Glucose [Mass/Vol] 80 mg/dL Normal 55-199 [facility] Comment on above: Performed By: #### 2 234684, 6185329, 5535386, 00820033 ####[facility] [address] [place] [address] Potassium [Moles/Vol] 3.8 mmol/L Normal 3.5-5.3 [facility] Comment on above: Performed By: #### 2 356923, 4365922, 2636708, 54331709 ####[facility] [address] [place] [address] Protein [Mass/Vol] 7.4 g/dL Normal 6.0-7.8 [facility] Comment on above: Performed By: #### 2 285239, 8053423, 8233378, 66070180 ####[facility] [address] [place] [address] Sodium [Moles/Vol] 138 mmol/L Normal 135-145 [facility] Comment on above: Performed By: #### 2 870611, 2865680, 3733432, 39518660 ####[facility] [address] [place] [address] Urea nitrogen [Mass/Vol] 6 mg/dL Normal 5-21 [facility] Comment on above: Performed By: #### 2 997087, 7743281, 3890383, 06897421 ####[facility] [address] [place] [address] Urea nitrogen/Creatinine [Mass ratio] 7 No Units Low 10-20 [facility] Comment on above: Performed By: #### 2 522487, 5062478, 9254243, 39636260 ####[facility] [address] [place] [address] Consent for Treatmenton Consent for Treatment [id number]#1.00TIFF Normal [facility] Discharge Instructionson Discharge Instructions [id number]#1.00TIFF Normal [facility] ED Clinical Summaryon 2023 ED Clinical Summary Normal [facility] ED Note-Physicianon 05-17-19 ED Note-Physician Normal [facility] Comment on above: Result Comment: Elec tronically Signed By: Tiffani Cunningham PA-C\.br\Date and Time Signed: 05/17/23 15:46 EDT\.br\Electronically Co-Signed By: Ashutosh Albright M.D.\.br\Date and Time Co-Signed: 05/17/23 17:49 EDT ED Patient Education Noteon 05-17-2023 ED Patient Education Note Normal [facility] ED Patient Summaryon 024 ED Patient Summary Normal [facility] HEMATOLOGYOrdered By: SYSTEM SYSTEM on [...] 05-17-2023 Magnesium [Mass/Vol] 2.1 mg/dL Normal 1.3-2.4 [facility] Comment on above: Performed By: #### 2 255604, 0885705, 2519310, 55414965 ####[facility] [address] [place] [address] Population Healthon 05-17-19 24 Population Health Normal [facility] Pre-Arrival Noteon Pre-Arrival Note Normal [facility] eGFRon 05-17-2023 eGFR 86 mL/min/1.73 m2 Normal >=59 [facility] Comment on above: Order Comment: Order added by Discern Expert. Performed By: #### 2 950185, 0567771, 5591731, 93157038 ####[facility] [address] [place] [address] BMPon 05-14-2023 Anion gap [Moles/Vol] 8 mmol/L Normal 6-16 [facility] Comment on above: Performed By: #### 1 3807824, 6242969, 8494531918, 3518335, 1606938704, 948216824, 3906422, 9541201, 33704657 ####[facility] [address] [place] [address] Calcium [Mass/Vol] 8.6 mg/dL Low 8.9-11.1 [facility] Comment on above: Performed By: #### 1 5633520, 7110698, 6825279584, 8632322, 9979654075, 880895573, 5302074, 0534930, 14721670 ####[facility] [address] [place] [address] Chloride [Moles/Vol] 110 mmol/L Normal 101-111 [facility] Comment on above: Performed By: #### 1 9721231, 6987734, 5133178253, 0475854, 2235099724, 907305172, 1556967, 9460514, 94060011 ####[facility] [address] [place] [address] CO2 [Moles/Vol] 26 mmol/L Normal 21-31 [facility] Comment on above: Performed By: #### 1 1706649, 3385458, 4117359347, 7772247, 0501280073, 285939468, 9900042, 5795161, 08687467 ####[facility] [address] [place] [address] Creatinine [Mass/Vol] 0.9 mg/dL Normal 0.5-1.3 [facility] Comment on above: Performed By: #### 1 5173891, 8641936, 8683046095, 4309449, 3045161806, 679682947, 0472530, 1363373, 76370815 ####[facility] [address] [place] [address] Glucose [Mass/Vol] 96 mg/dL Normal 55-199 [facility] Comment on above: Performed By: #### 1 7622716, 9824975, 4166193205, 7052189, 6337094518, 963772722, 1822800, 6223513, 57148725 ####[facility] [address] [place] [address] Potassium [Moles/Vol] 4.0 mmol/L Normal 3.5-5.3 [facility] Comment on above: Performed By: #### 1 1179732, 5158487, 3690561650, 0821365, 6338118512, 528384810, 0695506, 1577789, 42353290 ####[address] [place] [address] Sodium [Moles/Vol] 140 mmol/L Normal 135-145 [facility] Comment on above: Performed By: #### 1 1379483, 7372441, 8066372760, 5895733, 8939283261, 587222595, 1332675, 1660303, 87867371 ####[facility] [address] [place] [address] Urea nitrogen [Mass/Vol] 5 mg/dL Normal 5-21 [facility] Comment on above: Performed By: #### 1 3844292, 8726139, 3823610639, 4188394, 6728716437, 173038873, 0354458, 4263758, 88254474 ####[address] [place] [address] Urea nitrogen/Creatinine [Mass ratio] 6 No Units Low 10-20 [facility] Comment on above: Performed By: #### 1 9068674, 4671222, 4272274211, 7288904, 6017403418, 739498790, 7374079, 2540933, 73364294 ####[facility] [address] [place] [address] CBC w/ Auto Diffon 4 Basophils/100 WBC (Bld) 1.4 % Normal 0.0-2.0 [facility] Comment on above: Performed By: #### 1 4478150, 3411703, 2750137299, 2345123, 2279142372, 195830704, 2640675, 8354348, 57608457 ####[facility] [address] [place] [address] Basophils/Leukocyte s Auto (Bld) [Pure # fraction] 0.0 E9/L Normal 0.0-0.2 [facility] Comment on above: Performed By: #### 1 5523200, 6787659, 8552652430, 7159500, 1463150495, 245513812, 7032708, 8089322, 01420110 ####[address] [place] [address] Eosinophils (Bld) [#/Vol] 0.1 E9/L Normal 0.0-0.5 [facility] Comment on above: Performed By: #### 1 6173272, 1345803, 1216292762, 3742674, 8591803217, 613287505, 7955826, 2813617, 30891235 ####[address] [place] [address] Eosinophils/100 WBC (Bld) 6.1 % Normal 0.0-8.0 [facility] Comment on above: Performed By: #### 1 7037666, 4971762, 9261312164, 3048660, 3268359489, 294161119, 4945707, 2916774, 15602179 ####[address] [place] [address] Erythrocyte distribution width (RBC) [Ratio] 14.4 % High 10.9-14.2 [facility] Comment on above: Performed By: #### 1 2465235, 9573415, 5494582995, 0525690, 0057351743, 755467572, 7119742, 4714120, 51571236 ####[address] [address] Hematocrit (Bld) [Volume fraction] 36.1 % Normal 34.0-46.0 [facility] Comment on above: Performed By: #### 1 8330872, 9133250, 0691225224, 2636068, 3379790000, 093381272, 7206483, 9945715, 17570635 ####[address] [address] Hemoglobin (Bld) [Mass/Vol] 12.2 g/dL Normal 12.0-16.0 [facility] Comment on above: Performed By: #### 1 4386593, 0854856, 9346592650, 5814545, 2071742877, 134040841, 7257950, 8204711, 92799973 ####[address] [address] Lymphocytes (Bld) [#/Vol] 1.1 E9/L Normal 1.0-4.0 [facility] Comment on above: Performed By: #### 1 1807756, 2755797, 7088450377, 6597691, 3553177820, 312928410, 8039410, 7773240, 30536891 ####[address] [place] [address] Lymphocytes/100 WBC (Bld) 51.0 % High 14.0-50.0 [facility] Comment on above: Performed By: #### 1 5588181, 9288079, 9101890730, 0122887, 2741856418, 042685701, 2568307, 9715436, 10775569 ####[address] [place] [address] MCH (RBC) [Entitic mass] 30.3 pg Normal 27.0-34.0 [facility] Comment on above: Performed By: #### 1 5947071, 8833618, 5405071436, 6488102, 0095392657, 659392239, 6286540, 9740573, 10633725 ####[address] [address] MCHC (RBC) [Mass/Vol] 33.9 g/dL Normal 31.4-36.0 [facility] Comment on above: Performed By: #### 1 4651475, 4600393, 7320860703, 7796415, 7432323938, 362636294, 3652071, 8583057, 94866723 ####[address] [place] [address] MCV (RBC) [Entitic vol] 89.3 fL Normal 80.0-100.0 [facility] Comment on above: Performed By: #### 1 1542968, 7397601, 3170510372, 1458790, 2738528795, 206037511, 6670932, 4029137, 07340722 ####[address] [address] Monocytes (Bld) [#/Vol] 0.1 E9/L Low 0.2-1.0 [facility] Comment on above: Performed By: #### 1 6917397, 1773487, 0879175034, 9557994, 9404488035, 540160163, 2014205, 2394044, 97030598 ####[address] [place] [address] Neutrophils (Bld) [#/Vol] 0.8 E9/L Low 2.0-7.5 [facility] Comment on above: Performed By: #### 1 0334653, 7499468, 1635544424, 2311377, 3919801790, 858281416, 1989615, 1068156, 43237000 ####[address] [place] [address] Neutrophils/100 WBC (Bld) 36.8 % Normal 36.0-75.0 [facility] Comment on above: Performed By: #### 1 3650850, 7234693, 4639362913, 1698976, 1435239634, 959875176, 8891372, 8382933, 87891014 ####[address] [address] Platelet mean volume (Bld) [Entitic vol] 9.3 fL Normal 6.4-10.8 [facility] Comment on above: Performed By: #### 1 2078657, 9128842, 2861473008, 0095513, 6274972956, 550798345, 4017674, 9533422, 25103837 ####[address] [place] [address] Platelets (Bld) [#/Vol] 167.0 E9/L Normal 150.0-500.0 [facility] Comment on above: Performed By: #### 1 2162065, 2026842, 2443884685, 5814848, 7810754242, 276621961, 6512023, 9489627, 92612255 ####[address] [place] [address] RBC (Bld) [#/Vol] 4.0 E12/L Low 4.3-5.9 [facility] Comment on above: Performed By: #### 1 9427936, 7618873, 0416265813, 9409305, 0290289458, 489526253, 4858692, 3691531, 64993087 ####[facility] [address] [place] [address] WBC corrected for nucl RBC Auto (Bld) [#/Vol] 2.1 E9/L Low 4.0-11.0 [facility] Comment on above: Result Comment: Resu lts consistant with previous path review on 05/13/23, reviewed by [id number] Performed By: #### 1 0217462, 2486255, 0296712791, 6024245, 8971742128, 442263176, 6466955, 3665709, 91290297 ####[facility] [address] [place] [address] CHEMISTRYOrdered By: SYSTEM SYSTEM on 05-14-2023 Anion [...] Chem Consultation Noteon 05-14-19 Consultation Note Normal [facility] Comment on above: Result Comment: Elec tronically Signed By: Miguel JOHNSON, Jon Smith\.br\Date and Time Signed: 05/14/23 11:54 EDT Discharge Note-Nursingon Discharge Note-Nursing Invalid Interpretation Code [address] [place] [address] [place] [address]- \.br\ Wednesday 9:45 AM EDT \.br\ With: Nasim JOHNSON, Rajni Ballesteros\.br\ Where: [facility] Folateon 05-14-2023 Folate [Mass/Vol] 10.1 ng/mL Normal >=6.7 [facility] Comment on above: Performed By: #### 1 2279521, 8423735, 3824088548, 8930149, 6597920984, 556122011, 4062072, 8272275, 26463736 ####[facility] [address] [place] [address] HEMATOLOGYOrdered By: SYSTEM SYSTEM on 05-14-2023 Basophils/100 [...] previous path review on 05/13/23, reviewed by [id number] Inpatient Clinical Summaryon 05-14-2023 Inpatient Clinical Summary Normal [facility] Inpatient Patient Summaryon 05-14-2023 Inpatient Patient Summary Normal [facility] Interdisciplinary Note - Taz e Manageron 05-14-2023 Interdisciplinary Note - Strategic Planning Analyst Normal [facility] Comment on above: Result Comment: Elec tronically Signed By: Kera Diehl\.br\Date and Time Signed: 05/14/23 10:23 EDT IntraOperative Documentson 0 05-14-2023 IntraOperative Documents [id number] Normal [facility] Progress Note-Physicianon Progress Note-Physician Normal [facility] Comment on above: Result Comment: Elec tronically Signed By: Moncho Trejo DO\.br\Date and Time Signed: 05/14/23 10:14 EDT Progress Note-Physician Normal [facility] Comment on above: Result Comment: Elec tronically Signed By: Kuldip Arcos Jr, DO\.br\Date and Time Signed: 05/14/23 07:41 EDT Progress Note-Physician Normal [facility] Comment on above: Result Comment: Elec tronically Signed By: Kuldip Arcos Jr, DO\.br\Date and Time Signed: 05/14/23 07:41 EDT Vit B12on 05-14-2023 Cobalamin (Vitamin B12) [Mass/Vol] 791 pg/mL Normal 50-1500 [facility] Comment on above: Performed By: #### 1 8009877, 0915323, 9307625168, 7290274, 3510001560, 236131130, 9510045, 7727383, 98210585 ####[facility] [address] [place] [address] eGFRon 05-14-2023 eGFR 86 mL/min/1.73 m2 Normal >=59 [facility] Comment on above: Order Comment: Order added by Discern Expert. Performed By: #### 1 1257542, 8560289, 3354907429, 1600497, 0822161201, 305228316, 4812947, 6179514, 62019231 ####[facility] [address] [place] [address] CBC w/ Auto Diffon 4 Basophils/100 WBC (Bld) 1.2 % Normal 0.0-2.0 [facility] Comment on above: Performed By: #### 2 872421, 5653668, 85958435, 87808247 ####[address] [address] Basophils/Leukocyte s Auto (Bld) [Pure # fraction] 0.0 E9/L Normal 0.0-0.2 [facility] Comment on above: Performed By: #### 2 773583, 6769560, 53537165, 78802772 ####[address] [address] Eosinophils (Bld) [#/Vol] 0.1 E9/L Normal 0.0-0.5 [facility] Comment on above: Performed By: #### 2 870101, 3103802, 58301753, 78844489 ####[address] [address] Eosinophils/100 WBC (Bld) 4.7 % Normal 0.0-8.0 [facility] Comment on above: Performed By: #### 2 268808, 6822157, 96173961, 02221688 ####[address] [address] Erythrocyte distribution width (RBC) [Ratio] 14.3 % High 10.9-14.2 [facility] Comment on above: Performed By: #### 2 454080, 8981042, 30571294, 76920904 ####[address] [address] Hematocrit (Bld) [Volume fraction] 37.1 % Normal 34.0-46.0 [facility] Comment on above: Performed By: #### 2 339253, 1175949, 89574725, 45442553 ####[address] [address] Hemoglobin (Bld) [Mass/Vol] 12.5 g/dL Normal 12.0-16.0 [facility] Comment on above: Performed By: #### 2 696379, 2862889, 94639143, 00720934 ####[address] [address] Lymphocytes (Bld) [#/Vol] 1.1 E9/L Normal 1.0-4.0 [facility] Comment on above: Performed By: #### 2 585989, 1406294, 21404266, 52218142 ####[address] [address] Lymphocytes/100 WBC (Bld) 53.2 % High 14.0-50.0 [facility] Comment on above: Performed By: #### 2 648508, 4679677, 01238972, 86639225 ####[address] [address] MCH (RBC) [Entitic mass] 30.1 pg Normal 27.0-34.0 [facility] Comment on above: Performed By: #### 2 980124, 3373640, 85099495, 11351209 ####[address] [address] MCHC (RBC) [Mass/Vol] 33.6 g/dL Normal 31.4-36.0 [facility] Comment on above: Performed By: #### 2 183290, 2510077, 98943242, 31230957 ####[address] [address] MCV (RBC) [Entitic vol] 89.4 fL Normal 80.0-100.0 [facility] Comment on above: Performed By: #### 2 346615, 5813314, 54865242, 98883096 ####[address] [address] Monocytes (Bld) [#/Vol] 0.1 E9/L Low 0.2-1.0 [facility] Comment on above: Performed By: #### 2 625517, 7341413, 60000483, 79232907 ####[facility] [address] [place] [address] Neutrophils (Bld) [#/Vol] 0.7 E9/L Low 2.0-7.5 [facility] Comment on above: Performed By: #### 2 428487, 9193107, 59543309, 25468738 ####[address] [address] Neutrophils/100 WBC (Bld) 34.6 % Low 36.0-75.0 [facility] Comment on above: Performed By: #### 2 643233, 9604797, 76480704, 43193633 ####[address] [address] Platelet 168.0 E9/L Normal 150.0-500.0 [facility] Comment on above: Performed By: #### 2 613123, 7963247, 21909709, 38717054 ####[address] [address] Platelet mean volume (Bld) [Entitic vol] 9.1 fL Normal 6.4-10.8 [facility] Comment on above: Performed By: #### 2 441078, 0483127, 86700211, 96447009 ####[address] [address] RBC (Bld) [#/Vol] 4.1 E12/L Low 4.3-5.9 [facility] Comment on above: Performed By: #### 2 513819, 1805613, 59816693, 26046866 ####[address] [address] WBC corrected for nucl RBC Auto (Bld) [#/Vol] 2.0 E9/L Abnormal 4.0-11.0 [facility] Comment on above: Result Comment: Resu lts called to JACKSON MARROQUIN by [place] and read back on 05/13/2023 07:20:49.Critical Result Verified by Repeat AnalysisSlide review performed Performed By: #### 2 202298, 7879030, 90071078, 98546862 ####[address] [place] [address] CHEMISTRYOrdered By: SYSTEM SYSTEM on 05-13-2023 Albumin [...] 05-13-2023 Albumin [Mass/Vol] 3.9 g/dL Normal 3.3-5.0 [facility] Comment on above: Performed By: #### 2 098783, 6379695, 66015426, 46968686 ####[facility] [address] [place] [address] Albumin/Globulin (S) [Mass conc ratio] 1.6 Normal 1.1-2.2 [facility] Comment on above: Performed By: #### 2 212343, 6714308, 60515053, 56599302 ####[address] [place] [address] ALP [Catalytic activity/Vol] 49 Int._Unit/L Normal 21-98 [facility] Comment on above: Performed By: #### 2 704339, 3029337, 41767979, 02370530 ####[facility] [address] [place] [address] ALT No additional P-5'-P [Catalytic activity/Vol] 12 Int._Unit/L Normal 6-46 [facility] Comment on above: Performed By: #### 2 518369, 0401755, 79277286, 62766238 ####[facility] [address] [place] [address] Anion gap [Moles/Vol] 9 mmol/L Normal 6-16 [facility] Comment on above: Performed By: #### 2 564169, 9523835, 00429037, 43033533 ####[facility] [address] [place] [address] AST [Catalytic activity/Vol] 23 Int._Unit/L Normal 5-43 [facility] Comment on above: Performed By: #### 2 171097, 8279935, 40170922, 48188551 ####[facility] [address] [place] [address] Bilirubin [Mass/Vol] 0.4 mg/dL Normal 0.0-1.1 [facility] Comment on above: Performed By: #### 2 741698, 2277218, 65413941, 34222630 ####[facility] [address] [place] [address] Calcium [Mass/Vol] 8.4 mg/dL Low 8.9-11.1 [facility] Comment on above: Performed By: #### 2 770579, 0707669, 01249218, 23906994 ####[facility] [address] [place] [address] Chloride [Moles/Vol] 111 mmol/L Normal 101-111 [facility] Comment on above: Performed By: #### 2 892807, 7882198, 43584037, 34096378 ####[facility] [address] [place] [address] CO2 [Moles/Vol] 24 mmol/L Normal 21-31 [facility] Comment on above: Performed By: #### 2 283760, 3300711, 71479542, 36940868 ####[facility] [address] [place] [address] Creatinine [Mass/Vol] 0.7 mg/dL Normal 0.5-1.3 [facility] Comment on above: Performed By: #### 2 918231, 1598019, 60155795, 53516667 ####[facility] [address] [place] [address] Globulin (S) [Mass/Vol] 2.5 g/dL Normal 1.4-4.0 [facility] Comment on above: Performed By: #### 2 666596, 5847278, 85106943, 89150009 ####[facility] [address] [place] [address] Glucose [Mass/Vol] 84 mg/dL Normal 55-199 [facility] Comment on above: Performed By: #### 2 295359, 3487244, 41613551, 99962705 ####[facility] [address] [place] [address] Potassium [Moles/Vol] 3.7 mmol/L Normal 3.5-5.3 [facility] Comment on above: Performed By: #### 2 408628, 2747886, 18385269, 00627988 ####[facility] [address] [place] [address] Protein [Mass/Vol] 6.4 g/dL Normal 6.0-7.8 [facility] Comment on above: Performed By: #### 2 645602, 0536853, 83886163, 96029661 ####[facility] [address] [place] [address] Sodium [Moles/Vol] 140 mmol/L Normal 135-145 [facility] Comment on above: Performed By: #### 2 690458, 2971764, 15257102, 88203009 ####[facility] [address] [place] [address] Urea nitrogen [Mass/Vol] 7 mg/dL Normal 5-21 [facility] Comment on above: Performed By: #### 2 316333, 3099294, 19312278, 56398936 ####[facility] [address] [place] [address] Urea nitrogen/Creatinine [Mass ratio] 10 No Units Normal 10-20 [facility] Comment on above: Performed By: #### 2 799735, 1481662, 17922600, 84076849 ####[facility] [address] [place] [address] Consenton 05-13-2023 Consent [id number] Normal [facility] Consultation Noteon 05-13-19 24 Consultation Note Normal [facility] Comment on above: Result Comment: [...] above: Result Comment: Resu lts called to JACKSONMILENA MARROQUIN by AG and read back on 05/13/2023 07:20:49. Critical Result Verified by Repeat Analysis Slide review performed HEMATOLOGYOrdered By: Stephan Tavares on 05-13-2023 Path Review Anemia with no increase of reticulocytes. Leukocytopenia with reactive lymphocytes and monocytes.CPT 84204 Invalid Interpretation Code [facility] [place] HemeManSS Interdisciplinary Note - Taz e Manageron 05-13-2023 Interdisciplinary Note - Strategic Planning Analyst Normal [facility] Comment on above: Result Comment: Elec tronically Signed By: Kera Diehl\.br\Date and Time Signed: 05/13/23 13:46 EDT Main OR Intraoperative Recor don 05-13-2023 Main OR Intraoperative Record Normal [facility] Oncology Progress Noteon Oncology Progress Note Normal [facility] Path. Reviewon 05-13-2023 Path Review Anemia with no increase of reticulocytes. Leukocytopenia with reactive lymphocytes and monocytes. Invalid Interpretation Code [facility] Comment on above: Order Comment: Order added by Discern Expert Performed By: #### 2 333880, 4826013, 95159154, 25704285 ####[facility] [address] [place] [address] Progress Note-Physicianon Progress Note-Physician Normal [facility] Comment on above: Result Comment: Elec tronically Signed By: Moncho Trejo DO\.br\Date and Time Signed: 05/13/23 10:43 EDT eGFRon 05-13-2023 eGFR 116 mL/min/1.73 m2 Normal >=59 [facility] Comment on above: Order Comment: Order added by Discern Expert. Performed By: #### 2 697683, 2181262, 95907049, 37869982 ####[facility] [address] [place] [address] B hCG Qualon 05-12-2023 Beta HCG ( test) Ql Negative Normal [facility] Comment on above: Performed By: #### 2 432757, 51833189, 1120925, 8722489, 48410731, 12372497, 33767385, 4843026 ####[address] [address] BMPOrdered By: SYSTEM SYSTEM on 05-12-2023 Anion gap [Moles/Vol] 11 mmol/L Normal 6-16 [facility] Comment on above: Performed By: #### 2 073172, 27636682, 9571484, 7306013, 87239012, 32906350, 99587013, 8125994 ####[address] [address] Calcium [Mass/Vol] 9.0 mg/dL Normal 8.9-11.1 [facility] Comment on above: Performed By: #### 2 699897, 91178715, 9659950, 8703377, 51127824, 75775180, 12802429, 2065050 ####[address] [place] [address] Chloride [Moles/Vol] 105 mmol/L Normal 101-111 [facility] Comment on above: Performed By: #### 2 972926, 23543931, 2819961, 6315921, 10273155, 79485536, 13334780, 6178780 ####[address] [place] [address] CO2 [Moles/Vol] 25 mmol/L Normal 21-31 [facility] Comment on above: Performed By: #### 2 175008, 35041430, 4525269, 6176397, 48826764, 18037482, 02112334, 3355374 ####[address] [address] Creatinine [Mass/Vol] 1.0 mg/dL Normal 0.5-1.3 [facility] Comment on above: Performed By: #### 2 480833, 81671100, 6918112, 6885502, 57633009, 80122959, 32581440, 7559059 ####[facility] [address] [place] [address] Glucose [Mass/Vol] 94 mg/dL Normal 55-199 [facility] Comment on above: Performed By: #### 2 003579, 08224892, 6918416, 7460059, 91989492, 47365251, 42442085, 1627378 ####[facility] [address] [place] [address] Potassium [Moles/Vol] 3.9 mmol/L Normal 3.5-5.3 [facility] Comment on above: Performed By: #### 2 094792, 57771479, 1385474, 3995230, 53707710, 54487558, 84922932, 4501616 ####[facility] [address] [place] [address] Sodium [Moles/Vol] 137 mmol/L Normal 135-145 [facility] Comment on above: Performed By: #### 2 418938, 17466424, 3132310, 9334638, 84117843, 21726360, 84074142, 1268970 ####[facility] [address] [place] [address] Urea nitrogen [Mass/Vol] 10 mg/dL Normal 5-21 [facility] Comment on above: Performed By: #### 2 750898, 15069744, 9377752, 0205652, 33758217, 77544566, 73404939, 8069177 ####[facility] [address] [place] [address] BMPon 05-12-2023 Urea nitrogen/Creatinine [Mass ratio] 10 No Units Normal 10-20 [facility] Comment on above: Performed By: #### 2 037589, 91941239, 1137792, 1550865, 17514939, 62332364, 50088780, 6156417 ####[address] [address] CBC w/ Auto DiffOrdered By: SYSTEM SYSTEM on 05-12-2023 Basophils/100 WBC (Bld) 0.9 % Normal 0.0-2.0 [facility] Comment on above: Performed By: #### 2 921994, 89995457, 2691131, 9491312, 32588724, 79516780, 56158082, 9208985 ####[address] [address] Basophils/Leukocyte s Auto (Bld) [Pure # fraction] 0.0 E9/L Normal 0.0-0.2 [facility] Comment on above: Performed By: #### 2 589015, 83007878, 1903768, 7184311, 29888642, 55921826, 65485145, 7274477 ####[address] [address] Eosinophils (Bld) [#/Vol] 0.1 E9/L Normal 0.0-0.5 [facility] Comment on above: Performed By: #### 2 065380, 23301652, 7382354, 5643912, 82105699, 40881481, 93115207, 2522819 ####[address] [address] Eosinophils/100 WBC (Bld) 2.3 % Normal 0.0-8.0 [facility] Comment on above: Performed By: #### 2 368248, 51865196, 8520308, 4711170, 58198960, 85504368, 28184666, 6913362 ####[address] [address] Erythrocyte distribution width (RBC) [Ratio] 14.3 % High 10.9-14.2 [facility] Comment on above: Performed By: #### 2 760344, 78567358, 8957464, 2264755, 60630611, 80087894, 80077731, 9723382 ####[place] [address] [address] Hematocrit (Bld) [Volume fraction] 39.8 % Normal 34.0-46.0 [facility] Comment on above: Performed By: #### 2 797455, 82546620, 4704697, 5809439, 40278286, 47830380, 26257296, 7468694 ####[place] [address] [address] Hemoglobin (Bld) [Mass/Vol] 13.5 g/dL Normal 12.0-16.0 [facility] Comment on above: Performed By: #### 2 747876, 76936601, 8796564, 2317065, 52332831, 80743615, 64718897, 8596145 ####[place] [address] [address] Lymphocytes (Bld) [#/Vol] 1.3 E9/L Normal 1.0-4.0 [facility] Comment on above: Performed By: #### 2 718209, 00868652, 9333701, 3754496, 58984151, 66878916, 70439166, 4021249 ####[place] [address] [address] Lymphocytes/100 WBC (Bld) 46.0 % Normal 14.0-50.0 [facility] Comment on above: Performed By: #### 2 366219, 44212209, 5688398, 4026338, 52215127, 76403274, 67317872, 3055796 ####[address] [address] MCH (RBC) [Entitic mass] 30.2 pg Normal 27.0-34.0 [facility] Comment on above: Performed By: #### 2 612360, 74045672, 1724461, 8564529, 96877750, 05490508, 45933251, 2781112 ####[place] [address] [address] MCHC (RBC) [Mass/Vol] 34.0 g/dL Normal 31.4-36.0 [facility] Comment on above: Performed By: #### 2 397432, 83395170, 2686006, 8436835, 88488653, 43820917, 74096712, 8976316 ####[place] [address] [address] MCV (RBC) [Entitic vol] 88.8 fL Normal 80.0-100.0 [facility] Comment on above: Performed By: #### 2 911354, 39097783, 0999026, 0346164, 14902639, 19410452, 98831506, 3529133 ####[place] [address] [address] Monocytes (Bld) [#/Vol] 0.2 E9/L Normal 0.2-1.0 [facility] Comment on above: Performed By: #### 2 682344, 76842212, 3632205, 6650469, 29939519, 70683015, 07570343, 4367155 ####[place] [address] [address] Neutrophils (Bld) [#/Vol] 1.2 E9/L Low 2.0-7.5 [facility] Comment on above: Performed By: #### 2 187642, 16891964, 1190811, 5602835, 72558123, 40192053, 54717945, 2569253 ####[address] [address] Neutrophils/100 WBC (Bld) 42.5 % Normal 36.0-75.0 [facility] Comment on above: Performed By: #### 2 749415, 29702372, 4837171, 1555743, 84816694, 87506468, 22473920, 4274061 ####[place] [address] [address] Platelet mean volume (Bld) [Entitic vol] 9.0 fL Normal 6.4-10.8 [facility] Comment on above: Performed By: #### 2 497556, 70497199, 5503462, 6793459, 72764364, 63841367, 67373090, 0619642 ####[place] [address] Platelets (Bld) [#/Vol] 179.0 E9/L Normal 150.0-500.0 [facility] Comment on above: Performed By: #### 2 909171, 33941287, 8034658, 7857062, 77068947, 76180015, 42545324, 8244033 ####[place] [address] RBC (Bld) [#/Vol] 4.5 E12/L Normal 4.3-5.9 [facility] Comment on above: Performed By: #### 2 158870, 70606348, 6668301, 4150218, 68100770, 81480976, 64510997, 0284915 ####[place] [address] WBC corrected for nucl RBC Auto (Bld) [#/Vol] 2.8 E9/L Low 4.0-11.0 Remisol Heme Comment on above: Performed By: #### 2 [id number], [id number], [id number], [id number], [id number], [id number], [id number], [id number] ####[place] [id number] CHEMISTRYOrdered By: SYSTEM SYSTEM on 05-12-2023 Albumin/Globulin [...] Sensitivity Troponin I Instructions For Use, Alan Orange, September 2017) Urea nitrogen/Creatinine [Mass ratio] 10 mg/mg Normal 10 - 20 Remisol Chem COAGULATIONOrdered By: Shannon Chappell on 05-12-2023 aPTT Coag (PPP) [Time] 34.7 s Normal 25.1 - 36.5 second(s) [facility] [place] Coag Comment on above: [...] the same coagulation reagent and instrumentation as [facility] [place]. Currently there are no coagulation studies available worldwide for children to 14 days, and no normal ranges. Heparin therapeutic range (represented by Anti-Factor Xa activity of 0.2 - 0.4 U/mL) corresponds to PTT of 56.6 - 109.0 sec. PT Coag (PPP) [Time] 13.1 s High 9.4 - 12.5 second(s) [facility] [place] Auto Coag Comment on above: [...] the same coagulation reagent and instrumentation as [facility]. Currently there are no coagulation studies available worldwide for children to 14 days, and no normal ranges. Consent for Treatmenton 04-16 Consent for Treatment [id number] 68#1.00TIFF Normal [facility] Consultation Noteon 05-12-19 Consultation Note Normal [facility] Comment on above: Result Comment: Elec tronically Signed By: Jon Rivera MD\.br\Date and Time Signed: 05/12/23 15:42 EDT ED Clinical Summaryon 2023 ED Clinical Summary Normal [facility] ED Note-Physicianon 05-12-19 ED Note-Physician Normal [facility] Comment on above: Result Comment: Elec tronically Signed By: Mauricio López PA-C\.br\Date and Time Signed: 05/12/23 12:06 EDT\.br\Electronically Co-Signed By: Mateusz Garcia DO\.br\Date and Time Co-Signed: 05/12/23 12:48 EDT ED Patient Education Noteon 05-12-2023 ED Patient Education Note Normal [facility] ED Patient Summaryon 024 ED Patient Summary Normal [facility] Endoscopic Procedure Report - Otheron 05-12-2023 Endoscopic Procedure Report - Other [facility] Comment on above: Result Comment: Elec tronically Signed By: Jon Rivera MD\.br\Date and Time Signed: 05/12/23 15:48 EDT Other Comment: Ramya jordan Attachment - attachment storage system not supported [id number] Can be viewed in source systemMissing Attachment - attachment storage system not supported [id number] Can be viewed in source systemMissing Attachment - attachment storage system not supported [id number] Can be viewed in source systemMissing Attachment - attachment storage system not supported [id number] Can be viewed in source systemMissing Attachment - attachment storage system not supported [id number] Can be viewed in source systemMissing Attachment - attachment storage system not supported [id number] Can be viewed in source systemMissing Attachment - attachment storage system not supported [id number] Can be viewed in source systemMissing Attachment - attachment storage system not supported [id number] Can be viewed in source systemMissing Attachment - attachment storage system not supported 1873922 Can be viewed in source system HEMATOLOGYOrdered By: SYSTEM SYSTEM on 05-12-2023 Monocytes/100 WBC (Bld) 8.3 % Normal 4.0 - 14.0 % Remisol Heme Hep Func PanelOrdered By: SY STEM SYSTEM on 05-12-2023 Albumin [Mass/Vol] 4.3 g/dL Normal 3.3-5.0 Rem[facility] l [facility] Comment on above: Performed By: #### 2 966117, 96694725, 5215254, 8304812, 61474163, 85888337, 70112080, 5594256 ####[facility] [address] [place] [address] Bilirubin [Mass/Vol] 0.4 mg/dL Normal 0.0-1.1 [facility] Comment on above: Performed By: #### 2 780974, 41701058, 5854280, 9441139, 04695638, 52500759, 58114001, 8059369 ####[facility] [address] [place] [address] Bilirubin.direct [Mass/Vol] 0.1 mg/dL Normal 0.0-0.4 [facility] Comment on above: Performed By: #### 2 779706, 00601160, 3734650, 8039246, 10054492, 22068260, 14249159, 2975241 ####[facility] [address] [place] [address] Bilirubin.indirect [Mass or moles/Vol] 0.3 mg/dL Normal 0.1-0.9 [facility] Comment on above: Performed By: #### 2 815972, 60792709, 1647782, 3844745, 58655380, 82134063, 16783631, 1914803 ####[address] [place] [address] Globulin (S) [Mass/Vol] 2.3 g/dL Normal 1.4-4.0 [facility] Comment on above: Performed By: #### 2 389717, 35915079, 8049995, 2363655, 37410087, 82245427, 10153291, 6036300 ####[address] [address] Protein [Mass/Vol] 6.6 g/dL Normal 6.0-7.8 Remiso l [facility] Comment on above: Performed By: #### 2 987606, 45374099, 1458279, 1675068, 08317256, 26257951, 21429855, 7876283 ####[address] [address] Hep Func Panelon 05-12-2023 Albumin/Globulin (S) [Mass conc ratio] 1.9 Normal 1.1-2.2 [facility] Comment on above: Performed By: #### 2 813564, 60793512, 2731262, 9028029, 67349823, 04299752, 20010546, 2935101 ####[address] [address] ALP [Catalytic activity/Vol] 58 Int._Unit/L Normal 21-98 [facility] Comment on above: Performed By: #### 2 966397, 19929695, 1274181, 6703851, 12830588, 72404201, 74983195, 1453783 ####[address] [place] [address] ALT No additional P-5'-P [Catalytic activity/Vol] 14 Int._Unit/L Normal 6-46 [facility] Comment on above: Performed By: #### 2 991514, 14827463, 6745705, 9837047, 76364607, 67252984, 02359287, 4977121 ####[facility] [address] [place] [address] AST [Catalytic activity/Vol] 26 Int._Unit/L Normal 5-43 [facility] Comment on above: Performed By: #### 2 912959, 12473906, 0824692, 0975332, 99806404, 02571249, 53417724, 0934848 ####[facility] [address] [place] [address] Interdisciplinary Note - Taz e Manageron 05-12-2023 Interdisciplinary Note - Strategic Planning Analyst Normal [facility] Comment on above: Result Comment: Elec tronically Signed By: Kera Diehl\.br\Date and Time Signed: 05/12/23 15:40 EDT Lipase LevelOrdered By: SYST EM SYSTEM on 05-12-2023 Lipase [Catalytic activity/Vol] 35 U/L Normal 13-58 [facility] Comment on above: Performed By: #### 2 291206, 13338435, 8718215, 3233819, 97764381, 73515004, 69845235, 4606117 ####[address] [place] [address] Main OR PACU I Recordon 04-16 Main OR PACU I Record Normal [facility] Main OR Preoperative Recordo n 05-12-2023 Main OR Preoperative Record Normal [facility] Monitor Recordon 05-12-2023 Monitor Record [id number]#1.00TIFF Normal [facility] Monitor Record [id number]#1.00TIFF Normal [facility] Monitor Record [id number]#1.00TIFF Normal [facility] PT & PTTon 05-12-2023 aPTT Coag (PPP) [Time] 34.7 second(s) Normal 25.1-36.5 [facility] Comment on above: Result Comment: [...] the same coagulation reagent and instrumentation as [facility]. Currently there are no coagulation studies available worldwide for children to 14 days, and no normal ranges. Heparin therapeutic range (represented by Anti-Factor Xa activity of 0.2 - 0.4 U/mL) corresponds to PTT of 56.6 - 109.0 sec. Performed By: #### 2 246973, 09473723, 0669997, 9163311, 60492026, 72033338, 21950911, 9560351 ####[facility] [address] [place] [address] PT Coag (PPP) [Time] 13.1 second(s) High 9.4-12.5 [facility] Comment on above: Result Comment: [...] the same coagulation reagent and instrumentation as [facility]. Currently there are no coagulation studies available worldwide for children to 14 days, and no normal ranges. Performed By: #### 2 478575, 35077904, 2239894, 6999539, 73464063, 41932489, 62396804, 9461484 ####[facility] [address] [place] [address] PT & PTTOrdered By: Shannon cutler on 05-12-2023 INR Coag (PPP) [Relative time] 1.17 {INR} Invalid Interpretation Code [facility] Auto Coag Comment on above: [...] 3.0 ? 4.5 Performed By: #### 2 575061, 79403321, 6456734, 3056777, 57867556, 14717358, 39694718, 4919569 ####[facility] [address] [place] [address] Provider Letteron 05-12-2023 Provider Letter Normal [facility] SEROLOGYOrdered By: Shannon cutler on 05-12-2023 Beta HCG ( test) Ql Negative (05/12/23 10:00 AM) Normal [facility] Man Sero Troponin 0 Hr.on 05-12-2023 Troponin I.cardiac [Mass/Vol] ng/mL Low 10.10-27.10 [facility] Comment on above: Result Comment: The 95% CI (Confidence Interval) PPV (Positive Predictive Value) for myocardial infarction in females is 38 pg/mL, in males 51 pg/mL. The results should be used in conjunction with clinical conditions of myocardial infarction.(Access High Sensitivity Troponin I Instructions For Use, Alan Orange, September 2017) Performed By: #### 2 878527, 35155861, 8616676, 9387860, 73483277, 69796983, 09353782, 4916152 ####[facility] [address] [place] [address] eGFROrdered By: SYSTEM [employer] on 05-12-2023 eGFR 76 mL/min/1.73 m2 Normal >=59 [facility] Comment on above: Order Comment: Order added by Discern Expert. Performed By: #### 2 384727, 84192353, 0881051, 1320028, 27648844, 90669301, 72739767, 9786106 ####[address] [address] CBC w/ Auto Diffon 4 Basophils/100 WBC (Bld) 0.7 % Normal 0.0-2.0 [facility] Comment on above: Performed By: #### 2 816051, 57465223, 0879485, 6147969, 4839327, 6113724 ####[address] [address] Basophils/Leukocyte s Auto (Bld) [Pure # fraction] 0.0 E9/L Normal 0.0-0.2 [facility] Comment on above: Performed By: #### 2 979679, 53298327, 8473070, 3912496, 2449311, 3467091 ####[address] [address] Eosinophils (Bld) [#/Vol] 0.0 E9/L Normal 0.0-0.5 [facility] Comment on above: Performed By: #### 2 910371, 70074825, 4698332, 3827513, 9947706, 0792542 ####[address] [address] Eosinophils/100 WBC (Bld) 1.5 % Normal 0.0-8.0 [facility] Comment on above: Performed By: #### 2 186641, 09503994, 5411416, 0765047, 7195989, 6709865 ####[address] [address] Erythrocyte distribution width (RBC) [Ratio] 14.6 % High 10.9-14.2 [facility] Comment on above: Performed By: #### 2 571022, 35923189, 3217636, 2810175, 3752541, 0313114 ####[address] [place] [address] Hematocrit (Bld) [Volume fraction] 38.7 % Normal 34.0-46.0 [facility] Comment on above: Performed By: #### 2 638377, 26042447, 0178217, 3876224, 2087454, 7973437 ####[address] [place] [address] Hemoglobin (Bld) [Mass/Vol] 13.2 g/dL Normal 12.0-16.0 [facility] Comment on above: Performed By: #### 2 850316, 43713506, 1785297, 6620124, 6848719, 6998041 ####[address] [address] Lymphocytes (Bld) [#/Vol] 1.3 E9/L Normal 1.0-4.0 [facility] Comment on above: Performed By: #### 2 055388, 03285527, 1271015, 7322804, 5740036, 4199439 ####[address] [address] Lymphocytes/100 WBC (Bld) 48.6 % Normal 14.0-50.0 [facility] Comment on above: Performed By: #### 2 034524, 72574324, 6681833, 5734763, 2640446, 7058382 ####[address] [address] MCH (RBC) [Entitic mass] 30.3 pg Normal 27.0-34.0 [facility] Comment on above: Performed By: #### 2 497082, 24011366, 5066664, 4785623, 2576913, 6455801 ####[address] [address] MCHC (RBC) [Mass/Vol] 34.2 g/dL Normal 31.4-36.0 [facility] Comment on above: Performed By: #### 2 672888, 75154980, 9408065, 9871292, 3856231, 4345597 ####[address] [address] MCV (RBC) [Entitic vol] 88.6 fL Normal 80.0-100.0 [facility] Comment on above: Performed By: #### 2 446753, 71136011, 2297285, 9466550, 5720760, 7099122 ####[address] [address] Monocytes (Bld) [#/Vol] 0.2 E9/L Normal 0.2-1.0 [facility] Comment on above: Performed By: #### 2 684775, 38415388, 3413987, 9848009, 0539521, 8115270 ####[address] [address] Neutrophils (Bld) [#/Vol] 1.1 E9/L Low 2.0-7.5 [facility] Comment on above: Performed By: #### 2 381268, 86027751, 0927622, 5871782, 9068764, 7534264 ####[address] [address] Neutrophils/100 WBC (Bld) 40.2 % Normal 36.0-75.0 [facility] Comment on above: Performed By: #### 2 468380, 76474020, 2510313, 2207569, 4856568, 0226709 ####[address] [address] Platelet mean volume (Bld) [Entitic vol] 9.2 fL Normal 6.4-10.8 [facility] Comment on above: Performed By: #### 2 882107, 79763999, 3651503, 3276331, 0347199, 2699167 ####[address] [address] Platelets (Bld) [#/Vol] 195.0 E9/L Normal 150.0-500.0 [facility] Comment on above: Performed By: #### 2 704853, 56617316, 7094131, 5380325, 0259489, 1394693 ####[facility] [address] [place] [address] RBC (Bld) [#/Vol] 4.4 E12/L Normal 4.3-5.9 [facility] Comment on above: Performed By: #### 2 493882, 21138595, 8020799, 0007006, 7131383, 1983603 ####[facility] [address] [place] [address] WBC corrected for nucl RBC Auto (Bld) [#/Vol] 2.7 E9/L Low 4.0-11.0 [facility] Comment on above: Performed By: #### 2 538670, 12195573, 3666215, 1703791, 9819648, 3672912 ####[facility] [address] [place] [address] CHEMISTRYOrdered By: SYSTEM SYSTEM on 05-11-2023 Amphetamines [...] Alternate Method called to Maribel Ortega by [id number] Interpretive Data: N egative Cutoff: <300 ng/mL [...] 05-11-2023 Albumin [Mass/Vol] 4.6 g/dL Normal 3.3-5.0 [facility] Comment on above: Performed By: #### 2 476038, 87447614, 1378284, 7335049, 2338867, 9819753 ####[facility] [address] [place] [address] Albumin/Globulin (S) [Mass conc ratio] 1.8 Normal 1.1-2.2 [facility] Comment on above: Performed By: #### 2 228899, 82758976, 7553243, 9423081, 2451241, 5807965 ####[facility] [address] [place] [address] ALP [Catalytic activity/Vol] 60 Int._Unit/L Normal 21-98 [facility] Comment on above: Performed By: #### 2 204409, 48622340, 9460322, 2770565, 2346818, 8270930 ####[facility] [address] [place] [address] ALT No additional P-5'-P [Catalytic activity/Vol] 14 Int._Unit/L Normal 6-46 [facility] Comment on above: Performed By: #### 2 524053, 07265083, 7941354, 3533400, 2519172, 9149656 ####[facility] [address] [place] [address] Anion gap [Moles/Vol] 15 mmol/L Normal 6-16 [facility] Comment on above: Performed By: #### 2 158351, 82352348, 5532749, 7911828, 6065686, 0391196 ####[facility] [address] [place] [address] AST [Catalytic activity/Vol] 25 Int._Unit/L Normal 5-43 [facility] Comment on above: Performed By: #### 2 076068, 91389149, 6476299, 5465196, 3192736, 9129262 ####[facility] [address] [place] [address] Bilirubin [Mass/Vol] 0.5 mg/dL Normal 0.0-1.1 [facility] Comment on above: Performed By: #### 2 134225, 29969306, 3166626, 5697938, 2094397, 5831781 ####[facility] [address] [place] [address] Calcium [Mass/Vol] 9.4 mg/dL Normal 8.9-11.1 [facility] Comment on above: Performed By: #### 2 327921, 18837163, 1059717, 2967836, 3625512, 7832360 ####[facility] [address] [place] [address] Chloride [Moles/Vol] 104 mmol/L Normal 101-111 [facility] Comment on above: Performed By: #### 2 749713, 49003866, 1113499, 4342892, 6805992, 3467983 ####[facility] [address] [place] [address] CO2 [Moles/Vol] 23 mmol/L Normal 21-31 [facility] Comment on above: Performed By: #### 2 001485, 88845602, 3700190, 4752624, 2570811, 5667471 ####[facility] [address] [place] [address] Creatinine [Mass/Vol] 0.8 mg/dL Normal 0.5-1.3 [facility] Comment on above: Performed By: #### 2 725382, 02443435, 7358800, 8764825, 9561259, 6428537 ####[facility] [address] [place] [address] Globulin (S) [Mass/Vol] 2.5 g/dL Normal 1.4-4.0 [facility] Comment on above: Performed By: #### 2 449785, 46975087, 3637657, 8333202, 5840174, 4528722 ####[facility] [address] [place] [address] Glucose [Mass/Vol] 80 mg/dL Normal 55-199 [facility] Comment on above: Performed By: #### 2 069509, 88892144, 4504144, 9781599, 2519443, 4133247 ####[facility] [address] [place] [address] Potassium [Moles/Vol] 3.6 mmol/L Normal 3.5-5.3 [facility] Comment on above: Performed By: #### 2 140800, 61625759, 5709747, 8110712, 7832505, 3068261 ####[facility] [address] [place] [address] Protein [Mass/Vol] 7.1 g/dL Normal 6.0-7.8 [facility] Comment on above: Performed By: #### 2 059363, 37948982, 9692768, 0087323, 9374977, 6865197 ####[facility] [address] [place] [address] Sodium [Moles/Vol] 138 mmol/L Normal 135-145 [facility] Comment on above: Performed By: #### 2 562064, 35293065, 4542783, 4468598, 0760826, 6000694 ####[facility] [address] [place] [address] Urea nitrogen [Mass/Vol] 9 mg/dL Normal 5-21 [facility] Comment on above: Performed By: #### 2 432375, 64058263, 5715144, 2531212, 6967284, 0819704 ####[facility] [address] [place] [address] Urea nitrogen/Creatinine [Mass ratio] 11 No Units Normal - [facility] Comment on above: Performed By: #### 2 534869, 37140547, 4425361, 3522127, 1989132, 2971640 ####[facility] [address] [place] [address] CT Abdomen/Pelvis w/o Contra ston 05-11-2023 CT Abdomen/Pelvis w/o Contrast Normal [facility] Consent for Treatmenton 04-16 Consent for Treatment [id number] 37#1.00TIFF Normal [facility] Discharge Instructionson Discharge Instructions [id number] 81#1.00TIFF Normal [facility] ED Clinical Summaryon 2023 ED Clinical Summary Normal [facility] ED Note-Physicianon 05-11-19 ED Note-Physician Normal [facility] Comment on above: Result Comment: Elec tronically Signed By: Tiffani Cunningham PA-C\.br\Date and Time Signed: 05/11/23 17:06 EDT\.br\Electronically Co-Signed By: Mateusz Garcia DO.br\Date and Time Co-Signed: 05/11/23 20:41 EDT ED Patient Education Noteon 05-11-2023 ED Patient Education Note Normal [facility] ED Patient Summaryon 024 ED Patient Summary Normal [facility] HEMATOLOGYOrdered By: SYSTEM SYSTEM on [...] Lactic Acid Lvl 0.6 mmol/L Normal 0.5-2.2 [facility] Comment on above: Performed By: #### 2 400544, 77499600, 4799204, 0561668, 4953401, 8597044 ####[facility] [address] [place] [address] Lipase Levelon 05-11-2023 Lipase [Catalytic activity/Vol] 34 U/L Normal 13-58 [facility] Comment on above: Performed By: #### 2 324639, 45997407, 0574478, 0704810, 2421076, 0746930 ####[facility] [address] [place] [address] Magnesiumon 05-11-2023 Magnesium [Mass/Vol] 2.1 mg/dL Normal 1.3-2.4 [facility] Comment on above: Performed By: #### 2 523272, 11967212, 7936089, 7620830, 9730901, 4689696 ####[facility] [address] [place] [address] SEROLOGYOrdered By: Olga Meng on 05-11-2023 HCG.beta subunit (U) [Moles/Vol] Negative Normal [facility] Man Sero U BetaHcg Qualon 05-11-2023 HCG.beta subunit (U) [Moles/Vol] Negative Normal [facility] Comment on above: Performed By: #### 4 906890990, 49968800 ####[facility] [address] [place] [address] U Drug Screenon 05-11-2023 Amphetamines Screen method >1000 ng/mL Ql (U) Negative Normal NEGATIVE [facility] Comment on above: Result Comment: Nega tive Cutoff: <1000 ng/mL Performed By: #### 2 273897 ####[facility] [address] [place] [address] Barbiturates Screen Ql (U) Negative Normal NEGATIVE [facility] Comment on above: Result Comment: Nega tive Cutoff: <200 ng/mL Performed By: #### 2 189900 ####[facility] [address] [place] [address] Benzodiazepines Ql (U) Negative Normal NEGATIVE [facility] Comment on above: Result Comment: Nega tive Cutoff: <200 ng/mL Performed By: #### 2 427552 ####[facility] [address] [place] [address] Cannabinoids Screen Ql (U) Positive Abnormal NEGATIVE [facility] Comment on above: Result Comment: No C onfirmation Requested by PhysicianResult Verified by Repeat AnalysisUnconfirmed by an Alternate Methodcalled to Maribel Ortega by at 1404Negative Cutoff: <50 ng/mL Performed By: #### 2 645964 ####[address] [address] Cocaine Ql (U) Negative Normal NEGATIVE [facility] Comment on above: Result Comment: Nega tive Cutoff: <300 ng/mL Performed By: #### 2 476268 ####[facility] [address] [place] [address] Opiates Screen Ql (U) Positive Abnormal NEGATIVE [facility] Comment on above: Result Comment: No C onfirmation Requested by PhysicianResult Verified by Repeat AnalysisUnconfirmed by an Alternate Methodcalled to Maribel Ortega by [id number] Cutoff: <300 ng/mL Performed By: #### 2 936402 ####[facility] [address] [place] [address] Phencyclidine Screen method >25 ng/mL Ql (U) Negative Normal NEGATIVE [facility] Comment on above: Result Comment: Nega tive Cutoff: <25 ng/mLThese drug screen results are to be used for medical (i.e., treatment) purposes only. Unconfirmed drug screening results must not be used for non-medical purposes (e.g., employment testing, legal testing). Performed By: #### 2 610505 ####[facility] [address] [place] [address] UA with Cult Rflxon 05-11-19 24 Color (U) Light-Yellow Normal Yellow [facility] Comment on above: Result Comment: Micr oscopic readings are only performed on those samples that meet specific criteria set forth by [facility]. Performed By: #### 4 [id number], 72590604 ####[place] [address] Glucose (U) [Mass/Vol] Negative Normal Negative [facility] Comment on above: Performed By: #### 4 395739165, 31228458 ####[address] [address] Ketones Ql (U) Negative Normal Negative [facility] Comment on above: Performed By: #### 4 601139996, 79803550 ####[address] [address] UA Blood Negative Normal Negative [facility] Comment on above: Performed By: #### 4 414639604, 31450566 ####[facility] [address] [place] [address] UA Clarity Clear Normal Clear [facility] Comment on above: Performed By: #### 4 861152575, 05100837 ####[facility] [address] [place] [address] UA Leuk Est Negative Normal Negative [facility] Comment on above: Performed By: #### 4 800868328, 42894093 ####Salvador Axel [address] [address] UA Nitrite Negative Normal Negative [facility] Comment on above: Performed By: #### 4 826091033, 53717701 ####[address] [address] UA pH 7.5 Invalid Interpretation Code 5.0-9.0 [facility] Comment on above: Performed By: #### 4 584125263, 92324587 ####[address] [address] UA Protein Negative Normal Negative [facility] Comment on above: Performed By: #### 4 914505623, 26127366 ####[address] [address] UA Spec Grav 1.010 Invalid Interpretation Code 1.005-1.030 [facility] Comment on above: Performed By: #### 4 536780164, 27532292 ####[place] [address] UA Urobilinogen Negative Normal Negative [facility] Comment on above: Performed By: #### 4 881041105, 39413099 ####[address] [address] Urobilinogen (U) [Mass/Vol] Negative Normal Negative [facility] Comment on above: Performed By: #### 4 697233319, 67911063 ####[address] [address] UA Spec Desc Clean Catch Normal [facility] Comment on above: Performed By: #### 4 876695966, 44294633 ####[address] [address] URINALYSISOrdered By: SYSTEM SYSTEM on 05-11-2023 Color (U) Light-Yellow 3 (05/11/23 12:41 PM) Normal Yellow [facility] UA Auto SS Comment on above: Interpretive Data: M icroscopic readings are only performed on those samples that meet specific criteria set forth by [facility]. Glucose (U) [Mass/Vol] Negative Normal Negativemg/dL [facility] UA Auto SS Ketones Ql (U) Negative Normal Negativemg/dL [facility] UA Auto SS UA Blood Negative Normal Negativemg/dL [facility] UA Aut o SS UA Clarity Clear (05/11/23 12:41 PM) Normal Clear [facility] UA Auto SS UA Leuk Est Negative Normal NegativeLeu/uL [facility] A uto SS UA Nitrite Negative Normal Negativemg/dL [facility] UA Aut o SS UA pH 7.5 [...] 05-11-2023 eGFR 99 mL/min/1.73 m2 Normal >=59 [facility] Comment on above: Order Comment: Order added by Discern Expert. Performed By: #### 2 400694, 35695716, 1208814, 2229065, 4475741, 7253527 ####[facility] [address] [place] [address] Ambulatory Visit Summaryon 0 05-10-2023 Ambulatory Visit Summary Normal [address] [place] [address]- \.br\ Medications\.br\ What How Much When Why [...] for choosing us for your care.\.br\ \.br\ [facility] CNPNon 05-10-2023 CNPN Normal [facility] Family Medicine Office/Clini c Noteon 05-10-2023 Family Medicine Office/Clinic Note Normal [facility] Comment on above: Result Comment: Elec tronically Signed By: Jaquan Paula\.br\Date and Time Signed: 05/10/23 14:35 EDT Home Health Recordson 2023 Home Health Records [id number] 80#1.00TIFF Normal [facility] Provider Letteron 05-10-2023 Provider Letter Normal [facility] B hCG Qualon 05-09-2023 Beta HCG ( test) Ql Negative Normal [facility] Comment on above: Performed By: #### 1 3107156, 34954943, 9754934, 5542117, 9694482, 3668064 ####[facility] [address] [place] [address] BMPon 05-09-2023 Anion gap [Moles/Vol] 12 mmol/L Normal 6-16 [facility] Comment on above: Performed By: #### 1 6594967, 06176253, 2619846, 7274502, 7407180, 8677443 ####[facility] [address] [place] [address] Calcium [Mass/Vol] 8.6 mg/dL Low 8.9-11.1 [facility] Comment on above: Performed By: #### 1 4745211, 06360040, 6538946, 4988061, 9588127, 7116478 ####[facility] [address] [place] [address] Chloride [Moles/Vol] 109 mmol/L Normal 101-111 [facility] Comment on above: Performed By: #### 1 5692036, 63595062, 2153339, 6555949, 1896924, 1855102 ####[facility] [address] [place] [address] CO2 [Moles/Vol] 23 mmol/L Normal 21-31 [facility] Comment on above: Performed By: #### 1 8845173, 08242989, 2923360, 5630736, 5027690, 6493274 ####[facility] [address] [place] [address] Creatinine [Mass/Vol] 0.8 mg/dL Normal 0.5-1.3 [facility] Comment on above: Performed By: #### 1 1692715, 64873431, 7678819, 7296082, 7828445, 2695427 ####[facility] [address] [place] [address] Glucose [Mass/Vol] 79 mg/dL Normal 55-199 [facility] Comment on above: Performed By: #### 1 8858230, 81280354, 2771858, 1104983, 0448178, 7611246 ####[facility] [address] [place] [address] Potassium [Moles/Vol] 3.9 mmol/L Normal 3.5-5.3 [facility] Comment on above: Performed By: #### 1 3124118, 77372643, 7627328, 6485969, 2969500, 4885337 ####[address] [address] Sodium [Moles/Vol] 140 mmol/L Normal 135-145 [facility] Comment on above: Performed By: #### 1 6061243, 61881925, 7677190, 8383002, 7590750, 8495037 ####[address] [address] Urea nitrogen [Mass/Vol] 9 mg/dL Normal 5-21 [facility] Comment on above: Performed By: #### 1 2897587, 62640073, 7029088, 2952964, 0618275, 7140731 ####[address] [address] Urea nitrogen/Creatinine [Mass ratio] 11 No Units Normal 10-20 [facility] Comment on above: Performed By: #### 1 5298664, 90462951, 1361662, 4692565, 8785755, 5380532 ####[address] [address] CBC w/ Auto Diffon 4 Basophils/100 WBC (Bld) 1.1 % Normal 0.0-2.0 [facility] Comment on above: Performed By: #### 1 5455547, 31641019, 1172471, 7611409, 4959257, 8730016 ####[address] [address] Basophils/Leukocyte s Auto (Bld) [Pure # fraction] 0.0 E9/L Normal 0.0-0.2 [facility] Comment on above: Performed By: #### 1 2209580, 44068431, 8997810, 2495467, 9318557, 1735167 ####[address] [place] [address] Eosinophils (Bld) [#/Vol] 0.1 E9/L Normal 0.0-0.5 [facility] Comment on above: Performed By: #### 1 7493856, 81034950, 5410277, 0318649, 8069261, 2220106 ####[address] [address] Eosinophils/100 WBC (Bld) 2.1 % Normal 0.0-8.0 [facility] Comment on above: Performed By: #### 1 5893396, 95187909, 0692899, 8811637, 9545188, 0426487 ####[address] [address] Erythrocyte distribution width (RBC) [Ratio] 14.4 % High 10.9-14.2 [facility] Comment on above: Performed By: #### 1 2076341, 64523842, 6479784, 8457230, 9510771, 9203594 ####[address] [address] Hematocrit (Bld) [Volume fraction] 36.3 % Normal 34.0-46.0 [facility] Comment on above: Performed By: #### 1 2797182, 41977748, 7924794, 6396577, 5329600, 9950761 ####[address] [address] Hemoglobin (Bld) [Mass/Vol] 12.3 g/dL Normal 12.0-16.0 [facility] Comment on above: Performed By: #### 1 5015471, 63604654, 0443768, 5036679, 8556483, 1756605 ####[address] [address] Lymphocytes (Bld) [#/Vol] 1.2 E9/L Normal 1.0-4.0 [facility] Comment on above: Performed By: #### 1 5244844, 37775138, 3090039, 3318881, 2245335, 6412176 ####[address] [address] Lymphocytes/100 WBC (Bld) 42.2 % Normal 14.0-50.0 [facility] Comment on above: Performed By: #### 1 4417203, 74215371, 3257374, 7790198, 0570946, 6015168 ####[address] [address] MCH (RBC) [Entitic mass] 30.2 pg Normal 27.0-34.0 [facility] Comment on above: Performed By: #### 1 5415511, 28095220, 3503132, 4895275, 7806249, 2034356 ####[address] [address] MCHC (RBC) [Mass/Vol] 33.9 g/dL Normal 31.4-36.0 [facility] Comment on above: Performed By: #### 1 6598870, 26811620, 0075021, 3553897, 0313475, 8452640 ####[address] [address] MCV (RBC) [Entitic vol] 89.2 fL Normal 80.0-100.0 [facility] Comment on above: Performed By: #### 1 5945948, 30940932, 1156355, 1637553, 6663141, 5874932 ####[address] [address] Monocytes (Bld) [#/Vol] 0.3 E9/L Normal 0.2-1.0 [facility] Comment on above: Performed By: #### 1 1798193, 07194084, 8541197, 5917967, 8682684, 6245450 ####[address] [address] Neutrophils (Bld) [#/Vol] 1.2 E9/L Low 2.0-7.5 [facility] Comment on above: Performed By: #### 1 6337350, 83365984, 1349045, 8561226, 8415824, 7177019 ####[address] [address] Neutrophils/100 WBC (Bld) 44.3 % Normal 36.0-75.0 [facility] Comment on above: Performed By: #### 1 8920120, 49330184, 8653084, 6008547, 9304590, 4851852 ####[address] [address] Platelet 201.0 E9/L Normal 150.0-500.0 [facility] Comment on above: Performed By: #### 1 7073157, 86179170, 3777881, 1541118, 2350759, 3226398 ####[address] [address] Platelet mean volume (Bld) [Entitic vol] 9.8 fL Normal 6.4-10.8 [facility] Comment on above: Performed By: #### 1 1803795, 42754123, 3763220, 6014450, 7674755, 5831006 ####[address] [address] RBC (Bld) [#/Vol] 4.1 E12/L Low 4.3-5.9 [facility] Comment on above: Performed By: #### 1 7628811, 70393739, 6028177, 2757975, 0315804, 9249417 ####[address] [address] WBC corrected for nucl RBC Auto (Bld) [#/Vol] 2.8 E9/L Low 4.0-11.0 [facility] Comment on above: Performed By: #### 1 2295598, 80149300, 8944429, 2171078, 9585274, 2145915 ####[address] [address] CHEMISTRYOrdered By: SYSTEM SYSTEM on 05-09-2023 Albumin [...] for Treatmenton 04-16 Consent for Treatment [id number] E0#1.00TIFF Normal [facility] Discharge Instructionson Discharge Instructions [id number] 14#1.00TIFF Normal [facility] ED Clinical Summaryon 2023 ED Clinical Summary Normal [facility] ED Note-Nursingon 05-09-2023 ED Note-Nursing Discharge materials given, wheeled patient out. Home with family care. Normal [facility] ED Note-Physicianon 05-09-19 ED Note-Physician Normal [facility] Comment on above: Result Comment: Elec tronically Signed By: Lonnie Rios PA-C\.br\Date and Time Signed: 05/09/23 15:52 EDT\.br\Electronically Co-Signed By: Mateusz Garcia DO\.br\Date and Time Co-Signed: 05/09/23 17:19 EDT ED Patient Education Noteon 05-09-2023 ED Patient Education Note Normal [facility] ED Patient Summaryon 024 ED Patient Summary Normal [facility] HEMATOLOGYOrdered By: SYSTEM SYSTEM on [...] 05-09-2023 Albumin [Mass/Vol] 4.3 g/dL Normal 3.3-5.0 [facility] Comment on above: Performed By: #### 1 9540368, 89966953, 6440913, 0071940, 1631307, 4192566 ####[address] [place] [address] Albumin/Globulin (S) [Mass conc ratio] 1.8 Normal 1.1-2.2 [facility] Comment on above: Performed By: #### 1 5246679, 02172845, 1834489, 6814453, 0048180, 9947447 ####[address] [address] ALP [Catalytic activity/Vol] 51 Int._Unit/L Normal 21-98 [facility] Comment on above: Performed By: #### 1 5631951, 90511719, 6131396, 0899764, 6448757, 4594080 ####[address] [address] ALT No additional P-5'-P [Catalytic activity/Vol] 15 Int._Unit/L Normal 6-46 [facility] Comment on above: Performed By: #### 1 4808729, 33876557, 3170373, 6729867, 1217148, 0777069 ####[address] [address] AST [Catalytic activity/Vol] 26 Int._Unit/L Normal 5-43 [facility] Comment on above: Performed By: #### 1 2000535, 70511986, 2159453, 5189467, 8934490, 5316007 ####[address] [address] Bilirubin [Mass/Vol] 0.3 mg/dL Normal 0.0-1.1 [facility] Comment on above: Performed By: #### 1 1847779, 49926873, 3065417, 3318891, 6655924, 8895559 ####[address] [address] Bilirubin.direct [Mass/Vol] 0.1 mg/dL Normal 0.0-0.4 [facility] Comment on above: Performed By: #### 1 1765443, 95973073, 3664187, 7785584, 4587762, 9643483 ####[facility] [address] [place] [address] Bilirubin.indirect [Mass or moles/Vol] 0.2 mg/dL Normal 0.1-0.9 [facility] Comment on above: Performed By: #### 1 0611459, 42603106, 9537050, 6521149, 1704329, 8254612 ####[address] [place] [address] Globulin (S) [Mass/Vol] 2.4 g/dL Normal 1.4-4.0 [facility] Comment on above: Performed By: #### 1 2974098, 04412136, 2493819, 0632285, 4725985, 3185212 ####[address] [place] [address] Protein [Mass/Vol] 6.7 g/dL Normal 6.0-7.8 [facility] Comment on above: Performed By: #### 1 4881894, 74622474, 6751194, 0809031, 9178151, 9170139 ####[address] [place] [address] Lipase Levelon 05-09-2023 Lipase [Catalytic activity/Vol] 68 U/L High 13-58 [facility] Comment on above: Performed By: #### 1 7828321, 14866992, 4931181, 9520209, 6479828, 0936723 ####[address] [place] [address] SEROLOGYOrdered By: Stacia Arroyo on 05-09-2023 Beta HCG ( test) Ql Negative (05/09/23 12:12 PM) Normal [facility] Sero eGFRon 05-09-2023 eGFR 99 mL/min/1.73 m2 Normal >=59 [facility] Comment on above: Order Comment: Order added by Discern Expert. Performed By: #### 1 1847303, 18938446, 4990664, 6426771, 9328044, 4661128 ####[facility] [address] [place] [address] CNPNon 05-07-2023 CNPN Normal [facility] ED Note-Physicianon 05-07-19 ED Note-Physician Normal [facility] Comment on above: Result Comment: Elec tronically Signed By: Justine German PA-C\.br\Date and Time Signed: 05/06/23 21:25 EDT\.br\Electronically Co-Signed By: Mateusz Garcia DO\.br\Date and Time Co-Signed: 05/07/23 07:00 EDT Amylaseon 05-06-2023 Amylase [Catalytic activity/Vol] 40 U/L Normal 25-157 [facility] Comment on above: Order Comment: pt lillian cruz poked once, pt extremely dehydrated and would like to wait for IV start [id number] 05/06/2023 16:33:00 EDT Performed By: #### 2 744198, 3369113, 3726820, 04811386, 5670785, 4372431, 1563356 ####[facility] [address] [place] [address] BMPon 05-06-2023 Anion gap [Moles/Vol] 13 mmol/L Normal 6-16 [facility] Comment on above: Order Comment: pt lillian cruz poked once, pt extremely dehydrated and would like to wait for IV start [id number] 05/06/2023 16:33:00 EDT Performed By: #### 2 397598, 7771450, 0427876, 02559894, 8386157, 6067255, 3940334 ####[facility] [address] [place] [address] Calcium [Mass/Vol] 9.1 mg/dL Normal 8.9-11.1 [facility] Comment on above: Order Comment: pt lillian s poked once, pt extremely dehydrated and would like to wait for IV start [id number] 05/06/2023 16:33:00 EDT Performed By: #### 2 290048, 3463901, 5337290, 99750912, 3623307, 6457846, 5166122 ####[facility] [address] [place] [address] Chloride [Moles/Vol] 107 mmol/L Normal 101-111 [facility] Comment on above: Order Comment: pt lillian cruz poked once, pt extremely dehydrated and would like to wait for IV start [id number] 05/06/2023 16:33:00 EDT Performed By: #### 2 903071, 9962155, 9611563, 56239646, 3954558, 2147123, 6275822 ####[facility] [address] [place] [address] CO2 [Moles/Vol] 22 mmol/L Normal 21-31 [facility] Comment on above: Order Comment: pt lillian cruz poked once, pt extremely dehydrated and would like to wait for IV start epf711 05/06/2023 16:33:00 EDT Performed By: #### 2 076655, 1375508, 8429358, 32572402, 7866538, 6294042, 1907410 ####[facility] [address] [place] [address] Creatinine [Mass/Vol] 0.8 mg/dL Normal 0.5-1.3 [facility] Comment on above: Order Comment: pt lillian cruz poked once, pt extremely dehydrated and would like to wait for IV start [id number] 05/06/2023 16:33:00 EDT Performed By: #### 2 680803, 0980031, 3337434, 20537031, 1679015, 2672434, 8624941 ####[facility] [address] [place] [address] Glucose [Mass/Vol] 80 mg/dL Normal 55-199 [facility] Comment on above: Order Comment: pt lillian cruz poked once, pt extremely dehydrated and would like to wait for IV start [id number] 05/06/2023 16:33:00 EDT Performed By: #### 2 746994, 1513636, 2759251, 83728789, 7136439, 6219833, 3526214 ####[facility] [address] [place] [address] Potassium [Moles/Vol] 3.7 mmol/L Normal 3.5-5.3 [facility] Comment on above: Order Comment: pt lillian cruz poked once, pt extremely dehydrated and would like to wait for IV start [id number] 05/06/2023 16:33:00 EDT Performed By: #### 2 507196, 0112929, 9987330, 40310993, 3506465, 6300852, 4426370 ####[facility] [address] [place] [address] Sodium [Moles/Vol] 138 mmol/L Normal 135-145 [facility] Comment on above: Order Comment: pt lillian cruz poked once, pt extremely dehydrated and would like to wait for IV start [id number] 05/06/2023 16:33:00 EDT Performed By: #### 2 994706, 1940797, 5333421, 09134351, 4036120, 5510332, 7148236 ####[facility] [address] [place] [address] Urea nitrogen [Mass/Vol] 10 mg/dL Normal 5-21 [facility] Comment on above: Order Comment: pt lillian cruz poked once, pt extremely dehydrated and would like to wait for IV start [id number] 05/06/2023 16:33:00 EDT Performed By: #### 2 999190, 8995886, 1559018, 87345309, 9384867, 1367416, 6983334 ####[facility] [address] [place] [address] Urea nitrogen/Creatinine [Mass ratio] 12 No Units Normal 10-20 [facility] Comment on above: Order Comment: pt lillian cruz poked once, pt extremely dehydrated and would like to wait for IV start [id number] 05/06/2023 16:33:00 EDT Performed By: #### 2 793831, 5273356, 2694806, 62516685, 4789521, 5137142, 3630368 ####[facility] [address] [place] [address] CBC w/ Auto Diffon 4 Basophils/100 WBC (Bld) 1.1 % Normal 0.0-2.0 [facility] Comment on above: Order Comment: pt wa s poked once, pt extremely dehydrated and would like to wait for IV start [id number] 05/06/2023 16:33:00 EDT Performed By: #### 2 599413, 2150860, 0072916, 56219516, 7273485, 7675765, 6312469 ####[facility] [address] [place] [address] Basophils/Leukocyte s Auto (Bld) [Pure # fraction] 0.0 E9/L Normal 0.0-0.2 [facility] Comment on above: Order Comment: pt wa s poked once, pt extremely dehydrated and would like to wait for IV start [id number] 05/06/2023 16:33:00 EDT Performed By: #### 2 886845, 1841549, 3509545, 57716726, 4198435, 1074495, 7807020 ####[address] [address] Eosinophils (Bld) [#/Vol] 0.1 E9/L Normal 0.0-0.5 [facility] Comment on above: Order Comment: pt wa s poked once, pt extremely dehydrated and would like to wait for IV start [id number] 05/06/2023 16:33:00 EDT Performed By: #### 2 568388, 7353569, 7597507, 45278001, 0884494, 9019750, 7036313 ####[facility] [address] [place] [address] Eosinophils/100 WBC (Bld) 1.5 % Normal 0.0-8.0 [facility] Comment on above: Order Comment: pt wa s poked once, pt extremely dehydrated and would like to wait for IV start [id number] 05/06/2023 16:33:00 EDT Performed By: #### 2 329365, 8497346, 4510810, 59363252, 1708234, 7165363, 9517642 ####[facility] [address] [place] [address] Erythrocyte distribution width (RBC) [Ratio] 14.1 % Normal 10.9-14.2 [facility] Comment on above: Order Comment: pt wa s poked once, pt extremely dehydrated and would like to wait for IV start [id number] 05/06/2023 16:33:00 EDT Performed By: #### 2 525252, 4755116, 5994079, 26811400, 5627927, 4505345, 4874124 ####[facility] [address] [place] [address] Hematocrit (Bld) [Volume fraction] 37.9 % Normal 34.0-46.0 [facility] Comment on above: Order Comment: pt wa s poked once, pt extremely dehydrated and would like to wait for IV start [id number] 05/06/2023 16:33:00 EDT Performed By: #### 2 848641, 2786218, 3893270, 92835699, 6520055, 1342764, 8932947 ####[facility] [address] [place] [address] Hemoglobin (Bld) [Mass/Vol] 12.9 g/dL Normal 12.0-16.0 [facility] Comment on above: Order Comment: pt wa s poked once, pt extremely dehydrated and would like to wait for IV start ods774 05/06/2023 16:33:00 EDT Performed By: #### 2 804484, 1241530, 2401089, 50404904, 3117129, 8273137, 6136265 ####[facility] [address] [place] [address] Lymphocytes (Bld) [#/Vol] 1.4 E9/L Normal 1.0-4.0 [facility] Comment on above: Order Comment: pt wa s poked once, pt extremely dehydrated and would like to wait for IV start arl877 05/06/2023 16:33:00 EDT Performed By: #### 2 249651, 9760547, 3672955, 75398569, 0637011, 6563715, 5992403 ####[facility] [address] [place] [address] Lymphocytes/100 WBC (Bld) 33.8 % Normal 14.0-50.0 [facility] Comment on above: Order Comment: pt wa s poked once, pt extremely dehydrated and would like to wait for IV start lyc359 05/06/2023 16:33:00 EDT Performed By: #### 2 258903, 5969342, 0246310, 62944907, 0156756, 1353056, 2392832 ####[facility] [address] [place] [address] MCH (RBC) [Entitic mass] 30.3 pg Normal 27.0-34.0 [facility] Comment on above: Order Comment: pt wa s poked once, pt extremely dehydrated and would like to wait for IV start cll411 05/06/2023 16:33:00 EDT Performed By: #### 2 478602, 1973483, 4692596, 06803714, 9557017, 6735584, 2933525 ####[facility] [address] [place] [address] MCHC (RBC) [Mass/Vol] 34.1 g/dL Normal 31.4-36.0 [facility] Comment on above: Order Comment: pt wa s poked once, pt extremely dehydrated and would like to wait for IV start [id number] 05/06/2023 16:33:00 EDT Performed By: #### 2 270088, 3756010, 3524532, 69478890, 5916941, 9292516, 4644292 ####[facility] [address] [place] [address] MCV (RBC) [Entitic vol] 88.8 fL Normal 80.0-100.0 [facility] Comment on above: Order Comment: pt wa s poked once, pt extremely dehydrated and would like to wait for IV start [id number] 05/06/2023 16:33:00 EDT Performed By: #### 2 454269, 2948568, 2068356, 06862940, 1816976, 0669900, 3599182 ####[facility] [address] [place] [address] Monocytes (Bld) [#/Vol] 0.3 E9/L Normal 0.2-1.0 [facility] Comment on above: Order Comment: pt wa s poked once, pt extremely dehydrated and would like to wait for IV start gqc478 05/06/2023 16:33:00 EDT Performed By: #### 2 127346, 4572788, 7502425, 83148459, 8691841, 3550259, 1672411 ####[facility] [address] [place] [address] Neutrophils (Bld) [#/Vol] 2.3 E9/L Normal 2.0-7.5 [facility] Comment on above: Order Comment: pt wa s poked once, pt extremely dehydrated and would like to wait for IV start [id number] 05/06/2023 16:33:00 EDT Performed By: #### 2 532098, 6602093, 0141590, 32826481, 1689613, 0534386, 0517826 ####[facility] [address] [place] [address] Neutrophils/100 WBC (Bld) 56.4 % Normal 36.0-75.0 [facility] Comment on above: Order Comment: pt wa s poked once, pt extremely dehydrated and would like to wait for IV start res540 05/06/2023 16:33:00 EDT Performed By: #### 2 430493, 0390764, 2224914, 81709345, 1509813, 4708147, 1022071 ####[facility] [address] [place] [address] Platelet mean volume (Bld) [Entitic vol] 9.2 fL Normal 6.4-10.8 [facility] Comment on above: Order Comment: pt wa s poked once, pt extremely dehydrated and would like to wait for IV start vpr041 05/06/2023 16:33:00 EDT Performed By: #### 2 829435, 3827717, 6949631, 83744187, 9713831, 3792564, 6604525 ####[facility] [address] [place] [address] Platelets (Bld) [#/Vol] 192.0 E9/L Normal 150.0-500.0 [facility] Comment on above: Order Comment: pt wa s poked once, pt extremely dehydrated and would like to wait for IV start [id number] 05/06/2023 16:33:00 EDT Performed By: #### 2 742566, 4796785, 6354299, 81087091, 0383896, 4958147, 5263778 ####[facility] [address] [place] [address] RBC (Bld) [#/Vol] 4.3 E12/L Normal 4.3-5.9 [facility] Comment on above: Order Comment: pt wa s poked once, pt extremely dehydrated and would like to wait for IV start [id number] 05/06/2023 16:33:00 EDT Performed By: #### 2 530566, 1030800, 2849523, 42852571, 5792181, 8625093, 9210796 ####[facility] [address] [place] [address] WBC corrected for nucl RBC Auto (Bld) [#/Vol] 4.1 E9/L Normal 4.0-11.0 [facility] Comment on above: Order Comment: pt lillian s poked once, pt extremely dehydrated and would like to wait for IV start [id number] 05/06/2023 16:33:00 EDT Performed By: #### 2 779239, 6485257, 6394009, 55945710, 0471389, 5170839, 8632330 ####[facility] [address] [place] [address] CHEMISTRYOrdered By: SYSTEM SYSTEM on 05-06-2023 Albumin [...] for Treatmenton 04-16 Consent for Treatment [id number] 11#1.00TIFF Normal [facility] Discharge Instructionson Discharge Instructions [id number] 616#1.00TIFF Normal [facility] ED Clinical Summaryon 2023 ED Clinical Summary Normal [facility] ED Patient Education Noteon 05-06-2023 ED Patient Education Note Normal [facility] ED Patient Summaryon 024 ED Patient Summary Normal [facility] HEMATOLOGYOrdered By: SYSTEM SYSTEM on [...] 05-06-2023 Albumin [Mass/Vol] 4.6 g/dL Normal 3.3-5.0 [facility] Comment on above: Order Comment: pt wa s poked once, pt extremely dehydrated and would like to wait for IV start [id number] 05/06/2023 16:33:00 EDT Performed By: #### 2 359841, 3946115, 4613687, 26011065, 1172048, 1123097, 0730052 ####[address] [place] [address] Albumin/Globulin (S) [Mass conc ratio] 1.8 Normal 1.1-2.2 [facility] Comment on above: Order Comment: pt lillian cruz poked once, pt extremely dehydrated and would like to wait for IV start [id number] 05/06/2023 16:33:00 EDT Performed By: #### 2 644190, 8949805, 2897323, 04855545, 6554542, 9213218, 9286591 ####[facility] [address] [place] [address] ALP [Catalytic activity/Vol] 56 Int._Unit/L Normal 21-98 [facility] Comment on above: Order Comment: pt lillian cruz poked once, pt extremely dehydrated and would like to wait for IV start [id number] 05/06/2023 16:33:00 EDT Performed By: #### 2 290551, 9953293, 5529117, 59879435, 9349740, 3632615, 7815084 ####[facility] [address] [place] [address] ALT No additional P-5'-P [Catalytic activity/Vol] 14 Int._Unit/L Normal 6-46 [facility] Comment on above: Order Comment: pt lillian cruz poked once, pt extremely dehydrated and would like to wait for IV start [id number] 05/06/2023 16:33:00 EDT Performed By: #### 2 889607, 1325109, 5588561, 41821733, 2344509, 3543797, 1131373 ####[facility] [address] [place] [address] AST [Catalytic activity/Vol] 25 Int._Unit/L Normal 5-43 [facility] Comment on above: Order Comment: pt lillian s poked once, pt extremely dehydrated and would like to wait for IV start [id number] 05/06/2023 16:33:00 EDT Performed By: #### 2 317845, 5458189, 2196158, 84218753, 5896859, 5461562, 1339790 ####[facility] [address] [place] [address] Bilirubin [Mass/Vol] 0.5 mg/dL Normal 0.0-1.1 [facility] Comment on above: Order Comment: pt lillian s poked once, pt extremely dehydrated and would like to wait for IV start [id number] 05/06/2023 16:33:00 EDT Performed By: #### 2 712228, 6780961, 6150984, 85400353, 8859918, 8948011, 0348696 ####[facility] [address] [place] [address] Bilirubin.direct [Mass/Vol] 0.1 mg/dL Normal 0.0-0.4 [facility] Comment on above: Order Comment: pt lillian s poked once, pt extremely dehydrated and would like to wait for IV start [id number] 05/06/2023 16:33:00 EDT Performed By: #### 2 109632, 4870867, 2363872, 37182978, 1641121, 2786266, 2139955 ####[facility] [address] [place], [place] [id number] Bilirubin.indirect [Mass or moles/Vol] 0.4 mg/dL Normal 0.1-0.9 [facility] Comment on above: Order Comment: pt lillian s poked once, pt extremely dehydrated and would like to wait for IV start [id number] 05/06/2023 16:33:00 EDT Performed By: #### 2 850490, 2734787, 9904736, 25994018, 2278879, 6641916, 0129218 ####[facility] [address] [place] [address] Globulin (S) [Mass/Vol] 2.5 g/dL Normal 1.4-4.0 [facility] Comment on above: Order Comment: pt lillian s poked once, pt extremely dehydrated and would like to wait for IV start [id number] 05/06/2023 16:33:00 EDT Performed By: #### 2 535411, 9930918, 6021054, 13362215, 3666886, 7493628, 5499739 ####[facility] [address] [place] [address] Protein [Mass/Vol] 7.1 g/dL Normal 6.0-7.8 [facility] Comment on above: Order Comment: pt lillian cruz poked once, pt extremely dehydrated and would like to wait for IV start [id number] 05/06/2023 16:33:00 EDT Performed By: #### 2 520360, 4453726, 9640390, 01391817, 1057581, 7412029, 6919093 ####[facility] [address] [place] [address] Lactic Acidon 05-06-2023 Lactic Acid Lvl 0.7 mmol/L Normal 0.5-2.2 [facility] Comment on above: Order Comment: pt lillian cruz poked once, pt extremely dehydrated and would like to wait for IV start [id number] 05/06/2023 16:33:00 EDT Performed By: #### 2 395987, 8690859, 7131219, 79658041, 9455981, 9943384, 8976354 ####[facility] [address] [place] [address] Lipase Levelon 05-06-2023 Lipase [Catalytic activity/Vol] 62 U/L High 13-58 [facility] Comment on above: Order Comment: pt lillian cruz poked once, pt extremely dehydrated and would like to wait for IV start [id number] 05/06/2023 16:33:00 EDT Performed By: #### 2 792508, 4771125, 2929703, 75008155, 7438556, 8605992, 0231620 ####[facility] [address] [place] [address] Monitor Recordon 05-06-2023 Monitor Record [id number]#1.00TIFF Normal [facility] Monitor Record [id number] 260#1.00TIFF Normal [facility] Monitor Record [id number]#1.00TIFF Normal [facility] Monitor Record [id number]#1.00TIFF Normal [facility] eGFRon 05-06-2023 eGFR 99 mL/min/1.73 m2 Normal >=59 [facility] Comment on above: Order Comment: Order added by Discern Expert. Performed By: #### 2 138752, 8516370, 5173739, 92006361, 3599761, 7520936, 0708424 ####[facility] [address] [place] [id number] ED Note-Physicianon 04-07-19 ED Note-Physician [id number]#1.00TIFF Normal [facility] Alanine aminotransferase [En zymatic activity/volume] in Serum or PlasmaOrdered By: Trace Bullimore on 04-06-2023 ALT [Catalytic activity/Vol] 21 U/L Normal 7-52 [facility] Comment on above: Performed By: #### A CORY [facility], CUU #### [facility] [address] [place] [address] [place] Albumin [Mass/volume] in Ser um or Plasma by Bromocresol green (BCG) dye binding methoOrdered By: Trace Bullimore on 04-06-2023 Albumin BCG dye [Mass/Vol] 4.5 g/dL 3.5-5.7 [facility] Alkaline phosphatase [Enzyma tic activity/volume] in Serum or PlasmaOrdered By: Trace Bullimore on 04-06-2023 ALP [Catalytic activity/Vol] 48 U/L Normal 34-104 [facility] Comment on above: Performed By: #### A CORY ELIS, CUU #### [facility] [address] [place] [id number] [place] Amylase [Enzymatic activity/ volume] in Serum or PlasmaOrdered By: Trace Bullimore on 04-06-2023 Amylase [Catalytic activity/Vol] 48 U/L Normal 29-103 [facility] Comment on above: Performed By: #### [facility], [facility] #### [address] Aspartate aminotransferase [ Enzymatic activity/volume] in Serum or PlasmaOrdered By: Trace Bullimore on 04-06-2023 AST [Catalytic activity/Vol] 28 U/L Normal 13-39 [facility] Comment on above: Performed By: #### A MALLORIEUAJESSICA, [facility], [facility] #### [address] Automated basophil %Ordered By: Trace Bullimore on 04-06-2023 Basophils/100 WBC (Bld) 1.0 % Normal . [facility] Comment on above: Performed By: #### L IPASE, HEPATIC, RAEGAN, CBC, BMP #### [address] Automated basophil countOrde red By: Trace Bullimore on 04-06-2023 Basophils (Bld) [#/Vol] 0.0 10*3/uL Normal 0.0-0.2 [facility] Comment on above: Result Comment: PERF ORMED BY: [place] [address] PATHOLOGIST CAKE DECORATOR BAUTISTA BAKER M.D. Performed By: #### L IPASE, HEPATIC, RAEGAN, CBC, BMP #### [address] Automated blood monocyte cou ntOrdered By: Trace Bullimore on 04-06-2023 Monocytes (Bld) [#/Vol] 0.3 10*3/uL Normal 0.0-0.8 [facility] Comment on above: Performed By: #### L IPASE, HEPATIC, RAEGAN, CBC, BMP #### [address] Automated eosinophil %Ordere d By: Trace Bullimore on 04-06-2023 Eosinophils/100 WBC (Bld) 3.1 % Normal . [facility] Comment on above: Performed By: #### L IPASE, HEPATIC, RAEGAN, CBC, BMP #### [address] [place] [address] [place] Automated eosinophil countOr dered By: Trace Leosneto on 04-06-2023 Eosinophils (Bld) [#/Vol] 0.1 10*3/uL Normal 0.0-0.45 [facility] Comment on above: Performed By: #### L IPASE, HEPATIC, RAEGAN, CBC, BMP #### [facility] [address] Automated erythrocytes count in urine sediment (number/area)Ordered By: Trace Leosimore on 04-06-2023 RBC Auto (Urine sed) [#/Area] 1-2 [HPF] 0-4 [facility] Automated leukocytes count i n urine sediment (number/area)Ordered By: Trace Leosimore on 04-06-2023 WBC Auto (Urine sed) [#/Area] 3-4 [HPF] 0-4 [facility] Automated monocyte %Ordered By: Tracetamiko Leoskaitlinore on 04-06-2023 Monocytes/100 WBC (Bld) 6.7 % Normal . [facility] Comment on above: Performed By: #### L IPASE, HEPATIC, RAEGAN, CBC, BMP #### [address] Automated neutrophil %Ordere d By: Trace Beverley on 04-06-2023 Neutrophils/100 WBC (Bld) 51.6 % Normal . [facility] Comment on above: Performed By: #### L IPASE, HEPATIC, RAEGAN, CBC, BMP #### [address] Automated urine color determ inationOrdered By: Trace Beverley on 04-06-2023 Color (U) Yellow Normal Yellow [facility] Comment on above: Order Comment: Name Collection Type:: Clean-Voided Midstream Performed By: #### H EPATIC, MG, LIPASE, CMP, CBC #### [address] Basic Metabolic Panelon 03-19 Creatinine Clr Calc Pharmacy 98.98 Normal [facility] Comment on above: Performed By: #### A DDONUAPLUS, UHCG, CUU #### [address] GFR/1.73 sq M.predicted MDRD (S/P/Bld) [Vol rate/Area] mL/min/{1.73_m2} Normal [facility] Comment on above: Performed By: #### A JOSESITO RAY, CUU #### [address] Bilirubin Test strip Ql (U)O rdered By: Trace Lowery on 04-06-2023 Bilirubin Ql (U) Negative Negative [facility] Bilirubin.direct [Mass/volum e] in Serum or PlasmaOrdered By: Trace Solimanore on 04-06-2023 Bilirubin.direct [Mass/Vol] 0.10 mg/dL 0.03-0.18 [facility] Bilirubin.total [Mass/volume ] in Serum or PlasmaOrdered By: Trace Leosimore on 04-06-2023 Bilirubin [Mass/Vol] 0.4 mg/dL Normal 0.3-1.0 [facility] Comment on above: Performed By: #### A CORY ELIS, CUU #### [address] abdomen pelvis w conon CT abdomen pelvis w con [facility] [place] [address] [place] [address] CT Scan Report Signed Patient: Abbey Garcia MR#: [id number] : 1990 Acct:[id number] Age/Sex: 33 / F ADM Date: 04/06/23 Loc: ER Room: Type: [facility] ER Attending Dr: Copies to: AGA Sy [...] Maricruz Hutchinson M.D.04/06/2023 1:50 PM Dictation Location: [place] [address] Transcribed By: SULEMA 04/06/23 1350 Dictated By: Maricruz Hutchinson MD 04/06/23 1341 Signed By: 04/06/23 1350 Normal [facility] Calcium [Mass/volume] in Ser um or PlasmaOrdered By: Trace Lowery on 04-06-2023 Calcium [Mass/Vol] 9.1 mg/dL Normal 8.6-10.3 [facility] Comment on above: Performed By: #### A CORY, [facility], U #### [address] Carbon dioxide, total [Moles /volume] in Serum or PlasmaOrdered By: Trace Lowery on 04-06-2023 CO2 [Moles/Vol] 23.3 mmol/L Normal 21.0-31.0 [facility] Comment on above: Performed By: #### A DDONUAPLUS, BRITTANIECG, CUU #### [facility] [address] Chloride [Moles/volume] in S elder or PlasmaOrdered By: Trace Lowery on 04-06-2023 Chloride [Moles/Vol] 109 mmol/L High 98-107 [facility] Comment on above: Performed By: #### A NISHONUAJESSICA, ELIS, CUU #### [address] Complete Blood Count Auto Di ffon 04-06-2023 Mean Corpuscular HGB Conc 34.2 g/dL Normal 32.0-35.0 [facility] Comment on above: Performed By: #### L IPASE, HEPATIC, RAEGAN, CBC, BMP #### [place] [address] [place] Monocytes/100 WBC (Bld) 15.98 % Normal 0.00-20.00 [facility] Comment on above: Performed By: #### L IPASE, HEPATIC, RAEGAN, CBC, BMP #### [address] NRBC% 0.1 /100{WBC} Normal 0-0.5 [facility] Comment on above: Performed By: #### L IPASE, HEPATIC, RAEGAN, CBC, BMP #### [place] [address] [place] Creatinine [Mass/volume] in Serum or PlasmaOrdered By: Trace Lowery on 04-06-2023 Creatinine [Mass/Vol] 0.86 mg/dL Normal 0.60-1.20 [facility] Comment on above: Performed By: #### A DDONUAPLUS, UHCG, CUU #### [place] [address] [place] Dipstick and Microscopicon 0 04-06-2023 Appearance (U) Cloudy Critically abnormal Clear [facility] Comment on above: Order Comment: Name Collection Type:: Clean-Voided Midstream Performed By: #### H EPATIC, MG, LIPASE, CMP, CBC #### [facility] [address] Bacteria,Urine None Seen Normal None Seen [facility] Comment on above: Order Comment: Name Collection Type:: Clean-Voided Midstream Performed By: #### H EPATIC, MG, LIPASE, CMP, CBC #### [facility] [address] Bilirubin,Urine Negative Normal Negative [facility] Comment on above: Order Comment: Name Collection Type:: Clean-Voided Midstream Performed By: #### H EPATIC, MG, LIPASE, CMP, CBC #### [facility] [address] Glucose Ql (U) Normal Normal Normal [facility] Comment on above: Order Comment: Name Collection Type:: Clean-Voided Midstream Performed By: #### H EPATIC, MG, LIPASE, CMP, CBC #### [address] Hyaline Casts,Urine 0-8 Normal 0-8 [facility] Comment on above: Order Comment: Name Collection Type:: Clean-Voided Midstream Result Comment: PERF ORMED BY: [place] [address] PATHOLOGIST CAKE DECORATOR BAUTISTA BAKER M.D. Performed By: #### H EPATIC, MG, LIPASE, CMP, CBC #### [address] Ketones Ql (U) Trace High Negative [facility] Comment on above: Order Comment: Name Collection Type:: Clean-Voided Midstream Performed By: #### H EPATIC, MG, LIPASE, CMP, CBC #### [address] Leukocyte esterase Test strip Ql (U) Negative Normal Negative [facility] Comment on above: Order Comment: Name Collection Type:: Clean-Voided Midstream Performed By: #### H EPATIC, MG, LIPASE, CMP, CBC #### [address] Nitrite,Urine Negative Normal Negative [facility] Comment on above: Order Comment: Name Collection Type:: Clean-Voided Midstream Performed By: #### H EPATIC, MG, LIPASE, CMP, CBC #### [address] Occult Blood,Urine Negative Normal Negative [facility] Comment on above: Order Comment: Name Collection Type:: Clean-Voided Midstream Result Comment: PERF ORMED BY: [place] [address] PATHOLOGIST CAKE DECORATOR BAUTISTA BAKER M.D. Performed By: #### H EPATIC, MG, LIPASE, CMP, CBC #### [address] Protein,Urine Negative Normal Negative [facility] Comment on above: Order Comment: Name Collection Type:: Clean-Voided Midstream Performed By: #### H EPATIC, MG, LIPASE, CMP, CBC #### [address] RBC,Urine 1-2 Normal 0-4 [facility] Comment on above: Order Comment: Name Collection Type:: Clean-Voided Midstream Performed By: #### H EPATIC, MG, LIPASE, CMP, CBC #### [address] Specificy [place],Urine 1.026 Normal 1.001-1.030 [facility] Comment on above: Order Comment: Name Collection Type:: Clean-Voided Midstream Performed By: #### H EPATIC, MG, LIPASE, CMP, CBC #### [address] Squamous Epithelial Cell,Urine 3-4 High 0-2 [facility] Comment on above: Order Comment: Name Collection Type:: Clean-Voided Midstream Performed By: #### H EPATIC, MG, LIPASE, CMP, CBC #### [facility] [address] Urobilinogen,Urine Normal Normal Normal [facility] Comment on above: Order Comment: Name Collection Type:: Clean-Voided Midstream Performed By: #### H EPATIC, MG, LIPASE, CMP, CBC #### [address] WBC,Urine 3-4 Normal 0-4 [facility] Comment on above: Order Comment: Name Collection Type:: Clean-Voided Midstream Performed By: #### H EPATIC, MG, LIPASE, CMP, CBC #### [address] Erythrocyte distribution wid th [Ratio] by Automated countOrdered By: Trace Lowery on 04-06-2023 Erythrocyte distribution width (RBC) [Ratio] 13.9 % Normal 11.9-15.3 [facility] Comment on above: Performed By: #### L IPASE, HEPATIC, RAEGAN, CBC, BMP #### [address] Erythrocytes [#/volume] in B lood by Automated countOrdered By: Trace Lowery on 04-06-2023 RBC (Bld) [#/Vol] 4.17 10*6/uL Normal 3.60-5.00 [facility] Comment on above: Performed By: #### L IPASE, HEPATIC, RAEGAN, CBC, BMP #### [address] Glucose [Mass/volume] in Ser um or PlasmaOrdered By: Trace Lowery on 04-06-2023 Glucose [Mass/Vol] 77 mg/dL Normal 70-100 [facility] Comment on above: ADA recommended refe rence rangeRandom Glucose Reference Range is dependent on time and content of last meal. Glucose of more than 200 mg/dL in a nonstressed, ambulatory subject supports the diagnosis of Diabetes Mellitus. Result Comment: [place] om Glucose Reference Range is dependent on time and content of last meal. Glucose of more than 200 mg/dL in a nonstressed, ambulatory subject supports the diagnosis of Diabetes Mellitus. ADA recommended reference range Performed By: #### A DDONUAPLUS, UHCG, CUU #### [address] HCG ( test) IA.rapi d Ql (U)Ordered By: Trace Bullimore on 04-06-2023 HCG ( test) Ql (U) Negative [facility] HCG,Urineon 04-06-2023 Beta HCG ( test) Ql (U) Negative Normal [facility] Comment on above: Result Comment: PERF ORMED BY: [place] [address] PATHOLOGIST CAKE DECORATOR BAUTISTA BAKER M.D. Performed By: #### A DDONUAPLUS, UHCG, CUU #### [address] Hematocrit [Volume Fraction] of Blood by Automated countOrdered By: Trace Lowery on 04-06-2023 Hematocrit (Bld) [Volume fraction] 37.4 % Normal 34.0-46.4 [facility] Comment on above: Performed By: #### L IPASE, HEPATIC, RAEGAN, CBC, BMP #### [address] Hemoglobin [Mass/volume] in BloodOrdered By: Trace Bullimore on 04-06-2023 Hemoglobin (Bld) [Mass/Vol] 12.8 g/dL Normal 11.8-15.4 [facility] Comment on above: Performed By: #### L IPASE, HEPATIC, RAEGAN, CBC, BMP #### [address] Hepatic Panelon 04-06-2023 Albumin [Mass/Vol] 4.5 g/dL Normal 3.5-5.7 [facility] Comment on above: Performed By: #### A DDONUAPLUS, UHCG, CUU #### [place] [address] [place] Bilirubin,Indirect 0.3 mg/dL Normal [facility] Comment on above: Performed By: #### A DDONUAJESSICA, CG, CUU #### [facility] [address] Bilirubin.indirect [Mass/Vol] 0.10 mg/dL Normal 0.03-0.18 [facility] Comment on above: Performed By: #### A DDONUAPLUS, CG, CUU #### [facility] [address] Ketones Auto test strip (U) [Mass/Vol]Ordered By: Trace Lowery on 04-06-2023 Ketones (U) [Mass/Vol] Trace Negative [facility] Laboratory - UrinalysisOrder ed By: Trace Lowery on 04-06-2023 Hyaline casts LM Ql (Urine sed) 0-8 [LPF] 0-8 [facility] Leukocytes [#/volume] correc darvin for nucleated erythrocytes in Blood by Automated counOrdered By: Trace Lowery on 04-06-2023 WBC corrected for nucl RBC Auto (Bld) [#/Vol] 3.8 10*3/uL 3.8-11.6 [facility] Leukocytes [#/volume] in Blo od by Automated countOrdered By: Trace Lowery on 04-06-2023 WBC (Bld) [#/Vol] 3.8 10*3/uL Normal 3.8-11.6 [facility] Comment on above: Performed By: #### L IPASE, HEPATIC, RAEGAN, CBC, BMP #### [facility] [address] [place] [address] [place] Lipase [Enzymatic activity/v olume] in Serum or PlasmaOrdered By: Trace Lowery on 04-06-2023 Lipase [Catalytic activity/Vol] 86.0 U/L High 11.0-82.0 [facility] Comment on above: Result Comment: PERF ORMED BY: [place] [address] PATHOLOGIST CAKE DECORATOR BAUTISTA BAKER M.D. Performed By: #### A DDONUAPLUS, CG, CUU #### [facility] [address] Lymphocytes [#/volume] in Bl ood by Automated countOrdered By: Trace Dericimore on 04-06-2023 Lymphocytes (Bld) [#/Vol] 1.4 10*3/uL Normal 1.00-4.8 [facility] Comment on above: Performed By: #### L IPASE, HEPATIC, RAEGAN, CBC, BMP #### [facility] [address] Lymphocytes/100 leukocytes i n Blood by Automated countOrdered By: Trace Leosimore on 04-06-2023 Lymphocytes/100 WBC (Bld) 37.6 % Normal . [facility] Comment on above: Performed By: #### L IPASE, HEPATIC, RAEGAN, CBC, BMP #### [address] MCH [Entitic mass] by Automa darvin countOrdered By: Trace Dericimore on 04-06-2023 MCH (RBC) [Entitic mass] 30.6 pg Normal 24.7-34.3 [facility] Comment on above: Performed By: #### L IPASE, HEPATIC, RAEGAN, CBC, BMP #### [address] MCHC Auto (RBC) [Mass/Vol]Or dered By: Trace Bullimore on 04-06-2023 MCHC (RBC) [Mass/Vol] 34.2 g/dL 32.0-35.0 [facility] MCV [Entitic volume] by Auto mated countOrdered By: Trace Dericimore on 04-06-2023 MCV (RBC) [Entitic vol] 89.7 fL Normal 80-100 [facility] Comment on above: Performed By: #### L IPASE, HEPATIC, RAEGAN, CBC, BMP #### [address] Monocyte distribution width [Entitic volume] in Blood by AutomatedOrdered By: Trace Bullimore on 04-06-2023 Monocyte distribution width Auto (Bld) [Entitic vol] 15.98 % 0.00-20.00 [facility] Neutrophils [#/volume] in Bl ood by Automated countOrdered By: Trace Lowery on 04-06-2023 Neutrophils (Bld) [#/Vol] 2.0 10*3/uL Normal 1.8-7.7 [facility] Comment on above: Performed By: #### L IPASE, HEPATIC, RAEGAN, CBC, BMP #### [facility] [address] Nitrite Test strip Ql (U)Ord ered By: Trace Lowery on 04-06-2023 Nitrite Ql (U) Negative Negative [facility] No Panel InformationOrdered By: Trace Lowery on 04-06-2023 Estimated GFR (CKD-EPI) > 60.0 mL/Min [facility] Creatinine Clearance (Chem 98.98 [facility] Nucleated erythrocytes [Pres ence] in Blood by Automated countOrdered By: Trace Lowery on 04-06-2023 Nucleated RBC Auto Ql (Bld) 0.1 /100{WBC} 0-0.5 [facility] Platelet mean volume [Entiti c volume] in Blood by Automated countOrdered By: Trace Lowery on 04-06-2023 Platelet mean volume (Bld) [Entitic vol] 9.7 fL Normal 6.3-10.7 [facility] Comment on above: Performed By: #### L IPASE, HEPATIC, RAEGAN, CBC, BMP #### [facility] [address] [place] [address] [place] Platelets [#/volume] in Bloo d by Automated countOrdered By: Trace Lowery on 04-06-2023 Platelets (Bld) [#/Vol] 210 10*3/uL Normal 150-450 [facility] Comment on above: Performed By: #### L IPASE, HEPATIC, RAEGAN, CBC, BMP #### [facility] [address] [place] [address] [place] Potassium [Moles/volume] in Serum or PlasmaOrdered By: Trace Lowery on 02-20-2024 Potassium [Moles/Vol] 3.7 mmol/L Normal 3.5-5.1 [facility] [facility] Comment on above: Performed By: #### A JOSESITO RAY, CUU #### [address] Protein Auto test strip (U) [Mass/Vol]Ordered By: Trace Bullimore on 04-06-2023 Protein (U) [Mass/Vol] Negative Negative [facility] Protein [Mass/volume] in Ser um or PlasmaOrdered By: Trace Bullimore on 04-06-2023 Protein [Mass/Vol] 7.1 g/dL Normal 6.4-8.9 [facility] Comment on above: Performed By: #### A JOSESITO RAY, CUU #### [address] Serum globulin measurement b y calculation (mass/volume)Ordered By: Trace Bullimore on 04-06-2023 Globulin (S) [Mass/Vol] 2.6 g/dL Normal [facility] Comment on above: Performed By: #### A JOSESITO RAY, CUU #### [facility] [address] [place] [address] Serum or plasma albumin/glob ulin mass ratioOrdered By: Trace Bullimore on 04-06-2023 Albumin/Globulin [Mass ratio] 1.7 {ratio} [facility] Comment on above: Performed By: #### A JOSESITO RAY, CUU #### [address] Serum or plasma anion gap de terminationOrdered By: Trace Bullimore on 04-06-2023 Anion gap [Moles/Vol] 12.4 mmol/L Normal 6.0-15.0 [facility] Comment on above: Performed By: #### A JOSESITO RAY, CUU #### [address] Serum or plasma non-glucuron idated bilirubin measurement (mass/volume)Ordered By: Trace Bullimore on 04-06-2023 Bilirubin.indirect [Mass/Vol] 0.3 mg/dL [facility] Sodium [Moles/volume] in Ser um or PlasmaOrdered By: Trace Lowery on 04-06-2023 Sodium [Moles/Vol] 141 mmol/L Normal 136-145 [facility] Comment on above: Performed By: #### A CORY ELIS, CUU #### [facility] [address] Specific gravity Auto test s trip (U) [Rel density]Ordered By: Trace Lowery on 04-06-2023 Specific gravity (U) [Rel density] 1.026 1.001-1.030 [facility] Squamous epithelial cells de tection in urine sediment by light microscopyOrdered By: Trace Lowery on 04-06-2023 Epithelial cells.squamous LM Ql (Urine sed) 3-4 [HPF] 0-2 [facility] Urea nitrogen [Mass/volume] in Serum or PlasmaOrdered By: Trace Lowery on 04-06-2023 Urea nitrogen [Mass/Vol] 10 mg/dL Normal 7-25 [facility] Comment on above: Performed By: #### A JOSESITO RAY, U #### [address] Urine bacteria detection by automated methodOrdered By: Trace Lowery on 04-06-2023 Bacteria Auto Ql (U) None seen None Seen [facility] Urine clarity by refractomet ry automatedOrdered By: Trace Lowery on 04-06-2023 Clarity Refractometry automated (U) Cloudy Clear [facility] Urine glucose measurement by automated test strip (mass/volume)Ordered By: Trace Lowery on 04-06-2023 Glucose Auto test strip (U) [Mass/Vol] Normal mg/dL Normal [facility] Urine hemoglobin detection b y automated test stripOrdered By: Trace Lowery on 04-06-2023 Hemoglobin Auto test strip Ql (U) Negative Negative [facility] Urine leukocyte esterase det ection by automated test stripOrdered By: Trace Lowery on 04-06-2023 Leukocyte esterase Auto test strip Ql (U) Negative Negative [facility] Urine pH measurement by auto mated test stripOrdered By: Trace Beverley on 04-06-2023 pH (U) 7.5 [pH] Normal 5.0-9.0 [facility] Comment on above: Order Comment: Name Collection Type:: Clean-Voided Midstream Performed By: #### H EPATIC, MG, LIPASE, CMP, CBC #### [facility] [address] Urobilinogen Auto test strip (U) [Mass/Vol]Ordered By: Trace Loewry on 04-06-2023 Urobilinogen (U) [Mass/Vol] Normal mg/dL Normal [facility] BMPon 04-02-2023 Anion gap [Moles/Vol] 10 mmol/L Normal - [facility] Comment on above: Performed By: #### 2 056612, 9432621, 9061837, 52023363, 75922426, 75655752, 6596750, 72474910 ####[facility] [address] [place] [address] BUN/Creat Ratio 14 No Units Normal - [facility] Comment on above: Performed By: #### 2 696017, 3253164, 6197530, 97368489, 31211899, 25636726, 7755232, 44488633 ####[facility] [address] [place] [address] Calcium [Mass/Vol] 8.4 mg/dL Low 8.9-11.1 [facility] Comment on above: Performed By: #### 2 114567, 0656831, 6247814, 44421785, 58851207, 05929720, 5675985, 82100566 ####[facility] [address] [place] [address] Chloride [Moles/Vol] 111 mmol/L Normal 101-111 [facility] Comment on above: Performed By: #### 2 786238, 4531027, 0127437, 47873899, 72340434, 73163299, 8670108, 45454127 ####[facility] [address] [place] [address] CO2 [Moles/Vol] 21 mmol/L Normal 21-31 [facility] Comment on above: Performed By: #### 2 286156, 5752718, 5409506, 26453041, 64008667, 48002899, 6563576, 20555946 ####[facility] [address] [place] [address] Creatinine [Mass/Vol] 0.7 mg/dL Normal 0.5-1.3 [facility] Comment on above: Performed By: #### 2 997982, 9658966, 7348030, 07227536, 55004447, 39482128, 2190013, 25679731 ####[address] [place] [address] Glucose [Mass/Vol] 86 mg/dL Normal 55-199 [facility] Comment on above: Performed By: #### 2 639124, 5196702, 9947620, 03715988, 12069437, 90054956, 2251268, 51639668 ####[address] [place] [address] Potassium [Moles/Vol] 3.9 mmol/L Normal 3.5-5.3 [facility] Comment on above: Performed By: #### 2 153612, 8545735, 9904293, 29818212, 40265317, 70680253, 3751609, 92181932 ####[address] [place] [address] Sodium [Moles/Vol] 138 mmol/L Normal 135-145 [facility] Comment on above: Performed By: #### 2 921015, 9218809, 7351208, 57581046, 91043460, 48701168, 7930228, 29506879 ####[address] [place] [address] Urea nitrogen [Mass/Vol] 10 mg/dL Normal 5-21 [facility] Comment on above: Performed By: #### 2 103325, 9293687, 3017362, 35921867, 16583326, 92612825, 5471093, 04387509 ####[facility] [address] [place] [address] BNPon 04-02-2023 Int Ctr BNP Pass Normal [facility] Comment on above: Order Comment: 2nd d raw rejected due to clotted speciment. Phlebotomists notified of redraw by message. [facility] 04/02/2023 12:28:38 EST Performed By: #### 2 736877, 6192766, 0213594, 86121346, 19342937, 20121894, 5908645, 24806350 ####[facility] [address] [place] [address] Natriuretic peptide B (Bld) [Mass/Vol] 25 pg/mL Normal 5-80 [facility] Comment on above: Order Comment: 2nd d raw rejected due to clotted speciment. Phlebotomists notified of redraw by message. [facility] 04/02/2023 12:28:38 EST Performed By: #### 2 340584, 5975941, 3234777, 23616462, 29595725, 04004407, 0578497, 76242681 ####[facility] [address] [place] [address] CBC w/ Auto Diffon 4 Basophil Absolute 0.0 E9/L Normal 0.0-0.2 [facility] Comment on above: Order Comment: speci men rejected due to clot. Phlebotomists notified by message. [facility] 04/02/2023 11:56:19 EST\2nd draw rejected due to clot. Phlebotomists notified by message. [facility] 04/02/2023 12:27:56 EST Performed By: #### 2 678282, 0390763, 3974551, 38935075, 96644760, 32954740, 8642847, 28843735 ####[facility] [address] [place] [address] Basophils/100 WBC (Bld) 0.8 % Normal 0.0-2.0 [facility] Comment on above: Order Comment: speci men rejected due to clot. Phlebotomists notified by message. [facility] 04/02/2023 11:56:19 EST\2nd draw rejected due to clot. Phlebotomists notified by message. [facility] 04/02/2023 12:27:56 EST Performed By: #### 2 771075, 7136755, 3616607, 58504388, 13017239, 98348943, 7542324, 79842032 ####[facility] [address] [place] [address] Eos Absolute 0.2 E9/L Normal 0.0-0.5 [facility] Comment on above: Order Comment: speci men rejected due to clot. Phlebotomists notified by message. [facility] 04/02/2023 11:56:19 EST\2nd draw rejected due to clot. Phlebotomists notified by message. [facility] 04/02/2023 12:27:56 EST Performed By: #### 2 989623, 5541749, 3621117, 13575932, 81507201, 76334459, 3491715, 83203511 ####[facility] [address] [place] [address] Eosinophils/100 WBC (Bld) 3.1 % Normal 0.0-8.0 [facility] Comment on above: Order Comment: speci men rejected due to clot. Phlebotomists notified by message. [facility] 04/02/2023 11:56:19 EST\2nd draw rejected due to clot. Phlebotomists notified by message. [facility] 04/02/2023 12:27:56 EST Performed By: #### 2 005741, 7778894, 6224039, 44274877, 80325258, 35813631, 4167467, 22423740 ####[facility] [address] [place] [address] Erythrocyte distribution width (RBC) [Ratio] 14.0 % Normal 10.9-14.2 [facility] Comment on above: Order Comment: speci men rejected due to clot. Phlebotomists notified by message. [facility] 04/02/2023 11:56:19 EST\2nd draw rejected due to clot. Phlebotomists notified by message. [facility] 04/02/2023 12:27:56 EST Performed By: #### 2 849460, 2440814, 2775850, 47322535, 23661707, 92769058, 1092860, 22816575 ####[facility] [address] [place] [address] Hematocrit (Bld) [Volume fraction] 38.0 % Normal 34.0-46.0 [facility] Comment on above: Order Comment: speci men rejected due to clot. Phlebotomists notified by message. [facility] 04/02/2023 11:56:19 EST\2nd draw rejected due to clot. Phlebotomists notified by message. [facility] 04/02/2023 12:27:56 EST Performed By: #### 2 836562, 2993291, 4013617, 61381915, 07883956, 00721942, 1268176, 31577259 ####[facility] [address] [place] [address] Hemoglobin (Bld) [Mass/Vol] 12.8 g/dL Normal 12.0-16.0 [facility] Comment on above: Order Comment: speci men rejected due to clot. Phlebotomists notified by message. [facility] 04/02/2023 11:56:19 EST\2nd draw rejected due to clot. Phlebotomists notified by message. [facility] 04/02/2023 12:27:56 EST Performed By: #### 2 502750, 9253253, 3520659, 56470313, 19057249, 11234348, 8323205, 20338605 ####[facility] [address] [place] [address] Lymph Absolute 1.8 E9/L Normal 1.0-4.0 [facility] Comment on above: Order Comment: speci men rejected due to clot. Phlebotomists notified by message. [facility] 04/02/2023 11:56:19 EST\2nd draw rejected due to clot. Phlebotomists notified by message. [facility] 04/02/2023 12:27:56 EST Performed By: #### 2 534347, 6803831, 3341250, 51637402, 18535025, 75375572, 3128237, 73209750 ####[facility] [address] [place] [address] Lymphocytes/100 WBC (Bld) 34.1 % Normal 14.0-50.0 [facility] Comment on above: Order Comment: speci men rejected due to clot. Phlebotomists notified by message. [facility] 04/02/2023 11:56:19 EST\2nd draw rejected due to clot. Phlebotomists notified by message. [facility] 04/02/2023 12:27:56 EST Performed By: #### 2 708732, 8248549, 9652845, 29489397, 04897925, 88640477, 2004682, 77501538 ####[facility] [address] [place] [address] MCH (RBC) [Entitic mass] 29.8 pg Normal 27.0-34.0 [facility] Comment on above: Order Comment: speci men rejected due to clot. Phlebotomists notified by message. [facility] 04/02/2023 11:56:19 EST\2nd draw rejected due to clot. Phlebotomists notified by message. [facility] 04/02/2023 12:27:56 EST Performed By: #### 2 565321, 6913802, 2176172, 92024618, 37759870, 26936320, 6082590, 97386344 ####[facility] [address] [place] [address] MCHC (RBC) [Mass/Vol] 33.5 g/dL Normal 31.4-36.0 [facility] Comment on above: Order Comment: speci men rejected due to clot. Phlebotomists notified by message. [facility] 04/02/2023 11:56:19 EST\2nd draw rejected due to clot. Phlebotomists notified by message. [facility] 04/02/2023 12:27:56 EST Performed By: #### 2 639986, 3142130, 5113635, 75206882, 16704666, 19026643, 6758622, 77305406 ####[facility] [address] [place] [address] MCV (RBC) [Entitic vol] 88.9 fL Normal 80.0-100.0 [facility] Comment on above: Order Comment: speci men rejected due to clot. Phlebotomists notified by message. [facility] 04/02/2023 11:56:19 EST\2nd draw rejected due to clot. Phlebotomists notified by message. [facility] 04/02/2023 12:27:56 EST Performed By: #### 2 558685, 0964807, 5901284, 40626671, 83030822, 27868199, 5256650, 28939798 ####[facility] [address] [place] [address] Bracken Absolute 0.4 E9/L Normal 0.2-1.0 [facility] Comment on above: Order Comment: speci men rejected due to clot. Phlebotomists notified by message. [facility] 04/02/2023 11:56:19 EST\2nd draw rejected due to clot. Phlebotomists notified by message. [facility] 04/02/2023 12:27:56 EST Performed By: #### 2 698317, 1534517, 0020021, 72105979, 27173296, 49248480, 4855816, 39496086 ####[facility] [address] [place] [address] Monocytes/100 WBC (Bld) 7.4 % Normal 4.0-14.0 [facility] Comment on above: Order Comment: speci men rejected due to clot. Phlebotomists notified by message. [facility] 04/02/2023 11:56:19 EST\2nd draw rejected due to clot. Phlebotomists notified by message. [facility] 04/02/2023 12:27:56 EST Performed By: #### 2 153750, 9411263, 2889239, 40520145, 24317249, 77689325, 2646944, 24686034 ####[facility] [address] [place] [address] Neutro Absolute 2.9 E9/L Normal 2.0-7.5 [facility] Comment on above: Order Comment: speci men rejected due to clot. Phlebotomists notified by message. [facility] 04/02/2023 11:56:19 EST\2nd draw rejected due to clot. Phlebotomists notified by message. [facility] 04/02/2023 12:27:56 EST Performed By: #### 2 701246, 3857477, 7365693, 81166478, 33831479, 04585156, 6456279, 94937271 ####[facility] [address] [place] [address] Neutro Auto 54.6 % Normal 36.0-75.0 [facility] Comment on above: Order Comment: speci men rejected due to clot. Phlebotomists notified by message. [facility] 04/02/2023 11:56:19 EST\2nd draw rejected due to clot. Phlebotomists notified by message. [facility] 04/02/2023 12:27:56 EST Performed By: #### 2 827299, 3097197, 3450466, 15884591, 15811965, 47559653, 6214607, 11476807 ####[facility] [address] [place] [address] Platelet 204.0 E9/L Normal 150.0-500.0 [facility] Comment on above: Order Comment: speci men rejected due to clot. Phlebotomists notified by message. [facility] 04/02/2023 11:56:19 EST\2nd draw rejected due to clot. Phlebotomists notified by message. [facility] 04/02/2023 12:27:56 EST Result Comment: Demetra meneses with slide review Performed By: #### 2 529757, 6531772, 8627118, 45772614, 47770963, 26934089, 0208110, 68696349 ####[facility] [address] [place] [address] Platelet mean volume (Bld) [Entitic vol] 9.8 fL Normal 6.4-10.8 [facility] Comment on above: Order Comment: speci men rejected due to clot. Phlebotomists notified by message. [facility] 04/02/2023 11:56:19 EST\2nd draw rejected due to clot. Phlebotomists notified by message. [facility] 04/02/2023 12:27:56 EST Performed By: #### 2 969376, 1347605, 6209173, 15103412, 06648586, 64154060, 4320156, 65122413 ####[facility] [address] [place] [address] RBC 4.3 E12/L Normal 4.3-5.9 [facility] Comment on above: Order Comment: speci men rejected due to clot. Phlebotomists notified by message. [facility] 04/02/2023 11:56:19 EST\2nd draw rejected due to clot. Phlebotomists notified by message. [facility] 04/02/2023 12:27:56 EST Performed By: #### 2 896122, 0957507, 3826016, 65253306, 63917108, 04269624, 9152550, 05050199 ####[facility] [address] [place] [address] WBC 5.3 E9/L Normal 4.0-11.0 [facility] Comment on above: Order Comment: speci men rejected due to clot. Phlebotomists notified by message. [facility] 04/02/2023 11:56:19 EST\2nd draw rejected due to clot. Phlebotomists notified by message. [facility] 04/02/2023 12:27:56 EST Performed By: #### 2 733658, 6029745, 7942746, 53331358, 15377866, 98145463, 5165126, 45643591 ####[facility] [address] [place] [address] CHEMISTRYOrdered By: SYSTEM SYSTEM on 04-02-2023 Troponin [...] High Sensitivity Troponin I Instructions For Use, [facility], September 2017) Albumin [Mass/Vol] 3.9 g/dL Normal [...] Sensitivity Troponin I Instructions For Use, [facility], September 2017) Anion gap [Moles/Vol] 10 mmol/L [...] 25 pg/mL Normal 5 - 80 pg/mL [facility] COAGULATIONOrdered By: Gladys Arroyo on 04-02-2023 aPTT Coag (PPP) [Time] 33.2 s Normal 25.1 - 36.5 second(s) [facility] Auto Coag Comment on above: [...] the same coagulation reagent and instrumentation as [facility]. Currently there are no coagulation studies available worldwide for children to 14 days, and no normal ranges. Heparin therapeutic range (represented by Anti-Factor Xa activity of 0.2 - 0.4 U/mL) corresponds to PTT of 56.6 - 109.0 sec. Fibrin D-dimer FEU (PPP) [Mass/Vol] 541 ng/mL FEU Invalid Interpretation Code 215 - 500 ng/mL FEU [facility] Auto Coag Comment on above: [...] [Relative time] 1.14 {INR} Invalid Interpretation Code [facility] Auto Coag Comment on above: Interpretive Data: I NR results are specifically intended to assess patients stabilized on long-term Anticoagulation therapy suggested INR s Less Intensive Anticoagulation 2.0 3.0 Conventional Range 3.0 4.5 PT Coag (PPP) [Time] 12.7 s High 9.4 - 12.5 second(s) [facility] Auto Coag Comment on above: [...] the same coagulation reagent and instrumentation as [facility]. Currently there are no coagulation studies available worldwide for children to 14 days, and no normal ranges. CTA Abdomen and Pelvison CTA Abdomen and Pelvis Normal [facility] CTA Cheston 04-02-2023 CTA Chest Normal [facility] Consent for Treatmenton 03-18 Consent for Treatment [id number]#1.00TIFF Normal [facility] D-Dimeron 04-02-2023 Fibrin D-dimer FEU (PPP) [Mass/Vol] 541 [id number] Abnormal 215-500 [facility] Comment on above: Order Comment: [...] skin infectionsLiver cirrhosisPregnancy Performed By: #### 2 584232, 1461894, 6742744, 16887398, 56859683, 19103719, 1196551, 56128804 ####[facility] [address] [place] [address] Discharge Instructionson Discharge Instructions [id number] 98#1.00TIFF Normal [facility] ED Clinical Summaryon 2023 ED Clinical Summary Normal [facility] ED Note-Physicianon 04-02-19 24 ED Note-Physician Normal [facility] Comment on above: Result Comment: Elec tronically Signed By: Jose Ramon Martinez, Ashutosh Mendiola.rene\Date and Time Signed: 04/02/23 17:20 EST ED Patient Education Noteon 04-02-2023 ED Patient Education Note Normal [facility] ED Patient Summaryon 024 ED Patient Summary Normal [facility] Free T4on 04-02-2023 Free T4 [Mass/Vol] 0.75 ng/dL Normal 0.58-1.64 [facility] Comment on above: Performed By: #### 2 926935, 22635587, 2889121, 8928672 ####[facility] [address] [place] [address] HEMATOLOGYOrdered By: SYSTEM SYSTEM on 04-02-2023 Basophil [...] Normal 80.0 - 100.0 fL Remisol Heme Bracken Absolute 0.4 E9/L Normal 0.2 - 1.0 [...] 04-02-2023 Albumin [Mass/Vol] 3.9 g/dL Normal 3.3-5.0 [facility] Comment on above: Performed By: #### 2 154611, 49940267, 7961674, 8604564 ####[facility] [address] [place] [address] Albumin/Globulin [Mass ratio] 1.6 {ratio} Normal 1.1-2.2 [facility] Comment on above: Performed By: #### 2 470626, 55300281, 7650072, 0867996 ####[facility] [address] [place] [address] Alk Phos 50 Int._Unit/L Normal 21-98 [facility] Comment on above: Performed By: #### 2 446889, 13682134, 7688924, 2753254 ####[facility] [address] [place] [address] ALT 27 Int._Unit/L Normal 6-46 [facility] Comment on above: Performed By: #### 2 659766, 20176653, 5305691, 7459749 ####[facility] [address] [place] [address] AST 36 Int._Unit/L Normal 5-43 [facility] Comment on above: Performed By: #### 2 387488, 73226429, 9624523, 1566955 ####[facility] [address] [place] [address] Bili Direct 0.0 mg/dL Normal 0.0-0.4 [facility] Comment on above: Performed By: #### 2 421805, 94478506, 5570733, 3714029 ####[address] [place] [address] Bili Indirect 0.3 mg/dL Normal 0.1-0.9 [facility] Comment on above: Performed By: #### 2 303508, 85710024, 5837004, 7660172 ####[facility] [address] [place] [address] Bili Total 0.3 mg/dL Normal 0.0-1.1 [facility] Comment on above: Performed By: #### 2 615791, 45175365, 1788296, 2905241 ####[facility] [address] [place] [address] Globulin (S) [Mass/Vol] 2.4 g/dL Normal 1.4-4.0 [facility] Comment on above: Performed By: #### 2 926153, 05575551, 7243062, 6247498 ####[facility] [address] [place] [address] Protein [Mass/Vol] 6.3 g/dL Normal 6.0-7.8 [facility] Comment on above: Performed By: #### 2 691816, 40529361, 7310138, 3304342 ####[facility] [address] [place] [address] Lipase Levelon 04-02-2023 Lipase Lvl 124 unit/L High 13-58 [facility] Comment on above: Performed By: #### 2 176855, 00497867, 6405917, 5059018 ####[facility] [address] [place] [address] Magnesiumon 04-02-2023 Magnesium [Mass/Vol] 1.9 mg/dL Normal 1.3-2.4 [facility] Comment on above: Performed By: #### 2 195797, 3207748, 4694811, 71463973, 65742409, 19503275, 1138146, 97066431 ####[facility] [address] [place] [address] PT & PTTon 04-02-2023 aPTT Coag (PPP) [Time] 33.2 second(s) Normal 25.1-36.5 [facility] Comment on above: Order Comment: speci men rejected due to clot. phlebotomists notified of redraw by message. [facility] 04/02/2023 12:33:39 EST Result Comment: Para meter [...] the same coagulation reagent and instrumentation as [facility]. Currently there are no coagulation studies available worldwide for children to 14 days, and no normal ranges. Heparin therapeutic range (represented by Anti-Factor Xa activity of 0.2 - 0.4 U/mL) corresponds to PTT of 56.6 - 109.0 sec. Performed By: #### 2 557162, 6599369, 4388394, 86849906, 47556689, 91751761, 3241136, 02020556 ####[facility] [address] [place] [address] INR Coag (PPP) [Relative time] 1.14 {INR} Invalid Interpretation Code [facility] Comment on above: Order Comment: speci men rejected due to clot. phlebotomists notified of redraw by message. [facility] 04/02/2023 12:33:39 EST Result Comment: INR results are specifically intended to assess patients stabilized on long-term Anticoagulation therapy suggested INR?s ?Less Intensive Anticoagulation? 2.0 ? 3.0Conventional Range 3.0 ? 4.5 Performed By: #### 2 225912, 9880835, 9469112, 24360051, 75769599, 82976868, 5925047, 41922516 ####[facility] [address] [place] [address] PT Coag (PPP) [Time] 12.7 second(s) High 9.4-12.5 [facility] Comment on above: Order Comment: speci men rejected due to clot. phlebotomists notified of redraw by message. [facility] 04/02/2023 12:33:39 EST Result Comment: 15 d [...] the same coagulation reagent and instrumentation as [facility]. Currently there are no coagulation studies available worldwide for children to 14 days, and no normal ranges. Performed By: #### 2 903991, 1126776, 7101746, 30676881, 51775436, 63145270, 7607245, 68378288 ####[facility] [address] [place] [address] Pre-Arrival Noteon Pre-Arrival Note Normal [facility] Progress Note-Nurseon 2023 Progress Note-Nurse CT called and verbalized IV infiltrated when attempting to flush. IV removed per this nurse and attempted to place IV with unsuccessful attempts. Dr. Albright and Sabina, DEE aware. Normal [facility] TSH With T4fr Reflexon 04-02 TSH Qn 0.11 m[IU]/L Low 0.34-5.60 [facility] Comment on above: Performed By: #### 2 493768, 00515726, 5419924, 2689656 ####[facility] [address] [place] [address] Troponin 0 Hr.on 04-02-2023 Troponin 2.40 pg/mL Low 10.10-27.10 [facility] Comment on above: Result Comment: The 95% CI (Confidence Interval) PPV (Positive Predictive Value) for myocardial infarction in females is 38 pg/mL, in males 51 pg/mL. The results should be used in conjunction with clinical conditions of myocardial infarction.(Access High Sensitivity Troponin I Instructions For Use, [facility], September 2017) Performed By: #### 2 955451, 3881584, 6972060, 47523342, 25525461, 25491415, 8637667, 07571791 ####[facility] [address] [place] [address] Troponin 3 Hr.on 04-02-2023 Troponin I.cardiac [Mass/Vol] ng/mL Low 10.10-27.10 [facility] Comment on above: Result Comment: The 95% CI (Confidence Interval) PPV (Positive Predictive Value) for myocardial infarction in females is 38 pg/mL, in males 51 pg/mL. The results should be used in conjunction with clinical conditions of myocardial infarction.(Access High Sensitivity Troponin I Instructions For Use, [facility], September 2017) Performed By: #### 1 [id number] ####[facility] [address] [place] [address] XR Chest Single Viewon 04-02 XR Chest Single View Normal [facility] eGFRon 04-02-2023 eGFR 116 mL/min/1.73 m2 Normal >=59 [facility] Comment on above: Order Comment: Order added by Discern Expert. Performed By: #### 2 094907, 7185648, 0582030, 69662401, 08310841, 21140908, 4996894, 83215672 ####[facility] [address] [place] [address] Home Health Recordson 2023 Home Health Records [id number] F2#1.00TIFF Normal [facility] Ambulatory Visit Summaryon 0 03-24-2023 Ambulatory Visit Summary Normal [facility] Auth for Release of Medical Recordson 03-24-2023 Auth for Release of Medical Records [id number] 9F#1.00TIFF Normal [facility] Family Medicine Office/Clini c Noteon 03-24-2023 Family Medicine Office/Clinic Note Normal [facility] Comment on above: Result Comment: Elec tronically Signed By: Jqauan Paula\.br\Date and Time Signed: 03/24/23 15:20 EST CBC panel Auto (Bld)on 03-19 Erythrocyte distribution width (RBC) [Ratio] 12.1 % 11.5 - 14.5 % [facility] Hematocrit (Bld) [Volume fraction] 33.7 % Low 36.0 - 46.0 % [facility] Hemoglobin (Bld) [Mass/Vol] 11.9 g/dL Low 12.0 - 16.0 g/dL [facility] Interpretation and review of laboratory results Abnormal [facility] MCH (RBC) [Entitic mass] 30.1 pg 26.0 - 34.0 pg [facility] MCHC (RBC) [Mass/Vol] 35.3 g/dL 32.0 - 36.0 g/dL [facility] MCV (RBC) [Entitic vol] 85 fL 80 - 100 fL [facility] Nucleated RBC/100 WBC (Bld) [Ratio] 0.0 % [facility] Platelets (Bld) [#/Vol] 285 10*3/uL [facility] RBC (Bld) [#/Vol] 3.96 10*6/uL [facility] WBC (Bld) [#/Vol] 4.3 10*3/uL [facility] Erythrocyte distribution width (RBC) [Ratio] 12.1 % Normal 11.5-14.5 [facility] Comment on above: Performed By: #### V ERAB #### MELISA Galvan ([id number]) [facility] ([facility]) [address] [place] [address] [place] Hematocrit (Bld) [Volume fraction] 33.7 % Low 36.0-46.0 [facility] Comment on above: Performed By: #### V ERAB #### MELISA Galvan ([id number]) [facility] ([facility]) [address] [place] [address] [place] Hemoglobin (Bld) [Mass/Vol] 11.9 g/dL Low 12.0-16.0 [facility] Comment on above: Performed By: #### V ERAB #### MELISA Galvan ([id number]) [facility] ([facility]) [address] [place] [address] [place] MCH (RBC) [Entitic mass] 30.1 pg Normal 26.0-34.0 [facility] Comment on above: Performed By: #### V ERAB #### MELISA Galvan ([id number]) [facility] ([facility]) [address] [place] [address] [place] MCHC (RBC) [Mass/Vol] 35.3 g/dL Normal 32.0-36.0 [facility] Comment on above: Performed By: #### V ERAB #### MELISA Galvan ([id number]) [facility] ([facility]) [address] [place] [address] [place] MCV (RBC) [Entitic vol] 85 fL Normal 80-100 [facility] Comment on above: Performed By: #### Beth ERAB #### MELISA Galvan ([id number]) [facility] ([facility]) [address] [place] [address] [place] Nucleated RBC/100 WBC (Bld) [Ratio] 0.0 /100 WBCs Normal 0.0-0.0 [facility] Comment on above: Performed By: #### Beth ERAB #### MELISA Galvan ([id number]) [facility] ([facility]) [address] [place] [address] [place] Platelets (Bld) [#/Vol] 285 x10*3/uL Normal 150-450 [facility] Comment on above: Performed By: #### Beth ERAB #### MELISA Galvan ([id number]) [facility] ([facility]) [address] [place] [address] [place] RBC (Bld) [#/Vol] 3.96 x10*6/uL Low 4.00-5.20 [facility] Comment on above: Performed By: #### Beth ERAB #### MELISA Galvan ([id number]) [facility] ([facility]) [address] [place] [address] [place] WBC (Bld) [#/Vol] 4.3 x10*3/uL Low 4.4-11.3 [facility] Comment on above: Performed By: #### Beth ERAB #### MELISA Galvan ([id number]) [facility] ([facility]) [address] [place] [address] [place] Comprehensive metabolic 2000 panelon 03-19-2023 Albumin [Mass/Vol] 3.2 g/dL Low 3.5 - 5.0 g/dL [facility] ALP (Bld) [Catalytic activity/Vol] 68 U/L 35 - 125 U/L [facility] ALT [Catalytic activity/Vol] 14 U/L 5 - 40 U/L [facility] Anion gap [Moles/Vol] 13 mmol/L NINF - 19 mmol/L [facility] AST [Catalytic activity/Vol] 27 U/L 5 - 40 U/L [facility] Bilirubin [Mass/Vol] 0.4 mg/dL 0.1 - 1.2 mg/dL [facility] Calcium [Mass/Vol] 8.7 mg/dL 8.5 - 10.4 mg/dL [facility] Chloride [Moles/Vol] 106 mmol/L 97 - 107 mmol/L [facility] CO2 [Moles/Vol] 21 mmol/L Low 24 - 31 mmol/L [facility] Creatinine [Mass/Vol] 0.60 mg/dL 0.40 - 1.60 mg/dL [facility] eGFR - PINF [facility] Comment on above: Calculations of jessica mated GFR are performed using the 2020 CKD-EPI Study Refit equation without the race variable for the IDMS-Traceable creatinine methods. https://jasn.asnjournals.org/content//ASN.09217054 88 Glucose [Mass/Vol] 98 mg/dL 65 - 99 mg/dL [facility] Interpretation and review of laboratory results Abnormal [facility] Potassium [Moles/Vol] 3.7 mmol/L 3.4 - 5.1 mmol/L [facility] Protein [Mass/Vol] 5.7 g/dL Low 5.9 - 7.9 g/dL [facility] Sodium [Moles/Vol] 140 mmol/L 133 - 145 mmol/L [facility] Urea nitrogen [Mass/Vol] 5 mg/dL Low 8 - 25 mg/dL [facility] Albumin [Mass/Vol] 3.2 g/dL Low 3.5-5.0 [facility] Comment on above: Performed By: #### V ERAB #### MELISA Galvan ([id number]) [facility] ([facility]) [address] [place] [address] ALP (Bld) [Catalytic activity/Vol] 68 U/L Normal 35-125 [facility] Comment on above: Performed By: #### V ERAB #### MELISA Galvan () [facility] ([facility]) [address] [place] [address] [place] ALT [Catalytic activity/Vol] 14 U/L Normal 5-40 [facility] Comment on above: Performed By: #### V ERAB #### MELISA Galvan () [facility] ([facility]) [address] [place] [address] [place] Anion gap [Moles/Vol] 13 mmol/L Normal <=19 [facility] Comment on above: Performed By: #### V ERAB #### MELISA Galvan () [facility] ([facility]) [address] [place] [address] [place] AST [Catalytic activity/Vol] 27 U/L Normal 5-40 [facility] Comment on above: Performed By: #### V ERAB #### MELISA Galvan () [facility] ([facility]) [address] [place] [address] [place] Bilirubin [Mass/Vol] 0.4 mg/dL Normal 0.1-1.2 [facility] Comment on above: Performed By: #### V ERAB #### MELISA Galvan () [facility] ([facility]) [address] [place] [address] [place] Calcium [Mass/Vol] 8.7 mg/dL Normal 8.5-10.4 [facility] Comment on above: Performed By: #### V ERAB #### MELISA Galvan () [facility] ([facility]) [address] [place] [address] [place] Chloride [Moles/Vol] 106 mmol/L Normal 97-107 [facility] Comment on above: Performed By: #### V ERAB #### MELISA Galvan () [facility] ([facility]) [address] [place] [address] [place] CO2 [Moles/Vol] 21 mmol/L Low 24-31 [facility] Comment on above: Performed By: #### V ERAB #### MELISA Galvan ([id number]) [facility] ([facility]) [address] [place] [address] [place] Creatinine [Mass/Vol] 0.60 mg/dL Normal 0.40-1.60 [facility] Comment on above: Performed By: #### V ERAB #### MELISA Galvan ([id number]) [facility] ([facility]) [address] [place] [address] [place] GFR/1.73 sq M.predicted MDRD (S/P/Bld) [Vol rate/Area] mL/min/{1.73_m2} Normal >60 [facility] Comment on above: Result Comment: Calc ulations of estimated GFR are performed using the 2020 CKD-EPI Study Refit equation without the race variable for the IDMS-Traceable creatinine methods. https://jasn.asnjournals.org/content/early//ASN.03496086 88 Performed By: #### V ERAB #### MELISA Galvan ([id number]) [facility] ([facility]) [address] [place] [address] [place] Glucose [Mass/Vol] 98 mg/dL Normal 65-99 [facility] Comment on above: Performed By: #### V ERAB #### MELISA Galvan ([id number]) [facility] ([facility]) [address] [place] [address] [place] Potassium [Moles/Vol] 3.7 mmol/L Normal 3.4-5.1 [facility] Comment on above: Performed By: #### V ERAB #### MELISA Galvan ([id number]) [facility] ([facility]) [address] [place] [address] [place] Protein [Mass/Vol] 5.7 g/dL Low 5.9-7.9 [facility] Comment on above: Performed By: #### V ERAB #### MELISA Galvan ([id number]) [facility] ([facility]) [address] [place] [address] [place] Sodium [Moles/Vol] 140 mmol/L Normal 133-145 [facility] Comment on above: Performed By: #### V ERAB #### MELISA Galvan ([id number]) [facility] ([facility]) [address] [place] [address] Urea nitrogen [Mass/Vol] 5 mg/dL Low 8-25 [facility] Comment on above: Performed By: #### V ERAB #### MELISA Galvan ([id number]) [facility] ([facility]) [address] [place] [id number] [place] EGDon 03-19-2023 Esophagogastroduode noscopy Table formatting from the original result was not included. Normal [facility] EGD Study observation Narrat iveon 03-19-2023 [...] Tomasa Keyes RN 03/19/2023 1431 Procedure Location [address] [address] Referring Provider Generic Provider [place] No address on file Procedure Provider No name on file [facility] Work Phone: Radiology Study observation (narrative) [facility] Work Phone: EGD Study observation Narrat iveOrdered By: Eve Agosto on 03-19-2023 [facility] Work Phone: Home Health Recordson 2023 Home Health Records [id number] 90#1.00TIFF Normal [facility] Surgical pathology studyon 0 03-19-2023 Surgical pathology study Pathology report.total SEE COMMENT Surgical Pathology Case: [id number] Authorizing Provider: Eve Agosto MD Collected: 03/19/2023 1431 Ordering Location: [facility] Received: 03/19/[address] [place] [address] Pathologist: Melisa Rodriguez MD Specimen: STOMACH ANTRUM [...] is submitted in toto in 1 cassette. [facility] Gross dissection performed at: [facility] [address] [place] [address] Normal [facility] CBC panel Auto (Bld)on 03-18 Erythrocyte distribution width (RBC) [Ratio] 12.5 % 11.5 - 14.5 % [facility] Hematocrit (Bld) [Volume fraction] 37.2 % 36.0 - 46.0 % [facility] Hemoglobin (Bld) [Mass/Vol] 12.1 g/dL 12.0 - 16.0 g/dL [facility] Interpretation and review of laboratory results Abnormal [facility] MCH (RBC) [Entitic mass] 30.0 pg 26.0 - 34.0 pg [facility] MCHC (RBC) [Mass/Vol] 32.5 g/dL 32.0 - 36.0 g/dL [facility] MCV (RBC) [Entitic vol] 92 fL 80 - 100 fL [facility] Nucleated RBC/100 WBC (Bld) [Ratio] 0.0 % [facility] Platelets (Bld) [#/Vol] 266 10*3/uL [facility] RBC (Bld) [#/Vol] 4.03 10*6/uL [facility] WBC (Bld) [#/Vol] 4.0 10*3/uL Low [facility] Erythrocyte distribution width (RBC) [Ratio] 12.5 % Normal 11.5-14.5 [facility] Comment on above: Performed By: #### 5 8410-2 ####MELISA Galvan ([id number])[facility] (MW)[address] [place] [address] Hematocrit (Bld) [Volume fraction] 37.2 % Normal 36.0-46.0 [facility] Comment on above: Performed By: #### 5 8410-2 ####MELISA Galvan ([id number])[facility] ()[address] [place] [address] Hemoglobin (Bld) [Mass/Vol] 12.1 g/dL Normal 12.0-16.0 [facility] Comment on above: Performed By: #### 5 8410-2 ####MELISA Galvan ()[facility] ()[address] [place] [address] MCH (RBC) [Entitic mass] 30.0 pg Normal 26.0-34.0 [facility] Comment on above: Performed By: #### 5 8410-2 ####MELISA Galvan ([id number])[facility] ()[address] [place] [address] MCHC (RBC) [Mass/Vol] 32.5 g/dL Normal 32.0-36.0 [facility] Comment on above: Performed By: #### 5 8410-2 ####MELISA Galvan (47555)[facility] ()[address] [place] [address] MCV (RBC) [Entitic vol] 92 fL Normal 80-100 [facility] Comment on above: Performed By: #### 5 8410-2 ####MELISA Galvan ()[facility] ()[address] [place] [address] Nucleated RBC/100 WBC (Bld) [Ratio] 0.0 /100 WBCs Normal 0.0-0.0 [facility] Comment on above: Performed By: #### 5 8410-2 ####MELISA Galvan (11860)[facility] ()[address] [place] [address] Platelets (Bld) [#/Vol] 266 x10*3/uL Normal 150-450 [facility] Comment on above: Performed By: #### 5 8410-2 ####MELISA Galvan ([id number])[facility] ()[address] [place] [address] RBC (Bld) [#/Vol] 4.03 x10*6/uL Normal 4.00-5.20 [facility] Comment on above: Performed By: #### 5 8410-2 ####MELISA aGlvan ([id number])[facility] ()[address] [place] [address] WBC (Bld) [#/Vol] 4.0 x10*3/uL Low 4.4-11.3 [facility] Comment on above: Performed By: #### 5 8410-2 ####MELISA Galvan (72998)[facility] ()[address] [place] [facility] [place] [address] Comprehensive metabolic 2000 panelon 03-18-2023 Albumin [Mass/Vol] 3.0 g/dL Low 3.5 - 5.0 g/dL [facility] ALP (Bld) [Catalytic activity/Vol] 66 U/L 35 - 125 U/L [facility] ALT [Catalytic activity/Vol] 17 U/L 5 - 40 U/L [facility] Anion gap [Moles/Vol] 10 mmol/L NINF - 19 mmol/L [facility] AST [Catalytic activity/Vol] 33 U/L 5 - 40 U/L [facility] Bilirubin [Mass/Vol] 0.3 mg/dL 0.1 - 1.2 mg/dL [facility] Calcium [Mass/Vol] 8.4 mg/dL Low 8.5 - 10.4 mg/dL [facility] Chloride [Moles/Vol] 108 mmol/L High 97 - 107 mmol/L [facility] CO2 [Moles/Vol] 19 mmol/L Low 24 - 31 mmol/L [facility] Creatinine [Mass/Vol] 0.80 mg/dL 0.40 - 1.60 mg/dL [facility] eGFR - PINF [facility] Comment on above: Calculations of jessica mated GFR are performed using the 2020 CKD-EPI Study Refit equation without the race variable for the IDMS-Traceable creatinine methods. https://jasn.asnjournals.org/content//ASN.36680270 88 Glucose [Mass/Vol] 79 mg/dL 65 - 99 mg/dL [facility] Interpretation and review of laboratory results Abnormal [facility] Potassium [Moles/Vol] 3.8 mmol/L 3.4 - 5.1 mmol/L [facility] Protein [Mass/Vol] 5.7 g/dL Low 5.9 - 7.9 g/dL [facility] Sodium [Moles/Vol] 137 mmol/L 133 - 145 mmol/L [facility] Urea nitrogen [Mass/Vol] 5 mg/dL Low 8 - 25 mg/dL [facility] Albumin [Mass/Vol] 3.0 g/dL Low 3.5-5.0 [facility] Comment on above: Performed By: #### 2 4323-8 ####MELISA Galvan ([id number])[facility] ()[address] [place] [address] ALP (Bld) [Catalytic activity/Vol] 66 U/L Normal 35-125 [facility] Comment on above: Performed By: #### 2 4323-8 ####MELISA Galvan ([id number])[facility] ()[address] [place] [address] ALT [Catalytic activity/Vol] 17 U/L Normal 5-40 [facility] Comment on above: Performed By: #### 2 4323-8 ####MELISA Galvan (86989)[facility] ()[address] [place] [address] Anion gap [Moles/Vol] 10 mmol/L Normal <=19 [facility] Comment on above: Performed By: #### 2 4323-8 ####MELISA Galvan (49534)[facility] ()[address] [place] [address] AST [Catalytic activity/Vol] 33 U/L Normal 5-40 [facility] Comment on above: Performed By: #### 2 4323-8 ####MELISA Galvan ([id number])[facility] ()[address] [place] [address] Bilirubin [Mass/Vol] 0.3 mg/dL Normal 0.1-1.2 [facility] Comment on above: Performed By: #### 2 4323-8 ####MELISA Galvan (83996)[facility] ()[address] [place] [address] Calcium [Mass/Vol] 8.4 mg/dL Low 8.5-10.4 [facility] Comment on above: Performed By: #### 2 4323-8 ####MELISA Galvan (91492)[facility] ()[address] [place] [address] Chloride [Moles/Vol] 108 mmol/L High 97-107 [facility] Comment on above: Performed By: #### 2 4323-8 ####MELISA Galvan (23482)[facility] ()[address] [place] [address] CO2 [Moles/Vol] 19 mmol/L Low 24-31 [facility] Comment on above: Performed By: #### 2 4323-8 ####MELISA Galvan ([id number])[facility] ()[address] [place] [address] Creatinine [Mass/Vol] 0.80 mg/dL Normal 0.40-1.60 [facility] Comment on above: Performed By: #### 2 4323-8 ####MELISA Galvan (16824)[facility] ()[address] [place] [address] GFR/1.73 sq M.predicted MDRD (S/P/Bld) [Vol rate/Area] mL/min/{1.73_m2} Normal >60 [facility] Comment on above: Result Comment: Calc ulations of estimated GFR are performed using the 2020 CKD-EPI Study Refit equation without the race variable for the IDMS-Traceable creatinine methods. https://jasn.asnjournals.org/content//ASN.91519693 88 Performed By: #### 2 4323-8 ####MELISA Galvan ([id number])[facility] ()[address] [place] [address] Glucose [Mass/Vol] 79 mg/dL Normal 65-99 [facility] Comment on above: Performed By: #### 2 4323-8 ####MELISA Galvan ([id number])[facility] ()[address] [place] [address] Potassium [Moles/Vol] 3.8 mmol/L Normal 3.4-5.1 [facility] Comment on above: Performed By: #### 2 4323-8 ####MELISA Galvan (37912)[facility] ()[address] [place] [address] Protein [Mass/Vol] 5.7 g/dL Low 5.9-7.9 [facility] Comment on above: Performed By: #### 2 4323-8 ####MELISA Galvan (80046)[facility] ()[address] [place] [address] Sodium [Moles/Vol] 137 mmol/L Normal 133-145 [facility] Comment on above: Performed By: #### 2 4323-8 ####MELISA Galvan (04004)[facility] ()[address] [place] [address] Urea nitrogen [Mass/Vol] 5 mg/dL Low 8-25 [facility] Comment on above: Performed By: #### 2 4323-8 ####MELISA Galvan (43310)[facility] ()[address] [place] [address] CBC panel Auto (Bld)on 03-17 Erythrocyte distribution width (RBC) [Ratio] 12.5 % 11.5 - 14.5 % [facility] Hematocrit (Bld) [Volume fraction] 34.9 % Low 36.0 - 46.0 % [facility] Hemoglobin (Bld) [Mass/Vol] 11.5 g/dL Low 12.0 - 16.0 g/dL [facility] Interpretation and review of laboratory results Abnormal [facility] MCH (RBC) [Entitic mass] 30.2 pg 26.0 - 34.0 pg [facility] MCHC (RBC) [Mass/Vol] 33.0 g/dL 32.0 - 36.0 g/dL [facility] MCV (RBC) [Entitic vol] 92 fL 80 - 100 fL [facility] Nucleated RBC/100 WBC (Bld) [Ratio] 0.0 % [facility] Platelets (Bld) [#/Vol] 268 10*3/uL [facility] RBC (Bld) [#/Vol] 3.81 10*6/uL Low [facility] WBC (Bld) [#/Vol] 5.0 10*3/uL [facility] Erythrocyte distribution width (RBC) [Ratio] 12.5 % Normal 11.5-14.5 [facility] Comment on above: Performed By: #### 5 8410-2 ####MELISA Galvan ([id number])[facility] ()[address] [place] [address] Hematocrit (Bld) [Volume fraction] 34.9 % Low 36.0-46.0 [facility] Comment on above: Performed By: #### 5 8410-2 ####MELISA Galvan (82276)[facility] ()[address] [place] [address] Hemoglobin (Bld) [Mass/Vol] 11.5 g/dL Low 12.0-16.0 [facility] Comment on above: Performed By: #### 5 8410-2 ####MELISA Galvan ([id number])[facility] ()[address] [place] [address] MCH (RBC) [Entitic mass] 30.2 pg Normal 26.0-34.0 [facility] Comment on above: Performed By: #### 5 8410-2 ####MELISA Galvan ([id number])[facility] ()[address] [place] [address] MCHC (RBC) [Mass/Vol] 33.0 g/dL Normal 32.0-36.0 [facility] Comment on above: Performed By: #### 5 8410-2 ####MELISA Galvan ([id number])[facility] ()[address] [place] [address] MCV (RBC) [Entitic vol] 92 fL Normal 80-100 [facility] Comment on above: Performed By: #### 5 8410-2 ####MELISA Galvan ()[facility] ()[address] [place] [address] Nucleated RBC/100 WBC (Bld) [Ratio] 0.0 /100 WBCs Normal 0.0-0.0 [facility] Comment on above: Performed By: #### 5 8410-2 ####MELISA Galvan ([id number])[facility] ()[address] [place] [address] Platelets (Bld) [#/Vol] 268 x10*3/uL Normal 150-450 [facility] Comment on above: Performed By: #### 5 8410-2 ####MELISA Galvan ([id number])[facility] ()[address] [place] [address] RBC (Bld) [#/Vol] 3.81 x10*6/uL Low 4.00-5.20 [facility] Comment on above: Performed By: #### 5 8410-2 ####MELISA Galvan ([id number])[facility] ()[address] [place] [address] WBC (Bld) [#/Vol] 5.0 x10*3/uL Normal 4.4-11.3 [facility] Comment on above: Performed By: #### 5 8410-2 ####MELISA Galvan ([id number])[facility] (MW)[address] [place] [address] Comprehensive metabolic 2000 panelon 03-17-2023 Albumin [Mass/Vol] 3.3 g/dL Low 3.5 - 5.0 g/dL Un [facility] ALP (Bld) [Catalytic activity/Vol] 61 U/L 35 - 125 U/L [facility] ALT [Catalytic activity/Vol] 17 U/L 5 - 40 U/L [facility] Anion gap [Moles/Vol] 10 mmol/L NINF - 19 mmol/L [facility] AST [Catalytic activity/Vol] 31 U/L 5 - 40 U/L [facility] Bilirubin [Mass/Vol] 0.2 mg/dL 0.1 - 1.2 mg/dL [facility] Calcium [Mass/Vol] 8.1 mg/dL Low 8.5 - 10.4 mg/dL [facility] Chloride [Moles/Vol] 112 mmol/L High 97 - 107 mmol/L [facility] CO2 [Moles/Vol] 21 mmol/L Low 24 - 31 mmol/L [facility] Creatinine [Mass/Vol] 0.80 mg/dL 0.40 - 1.60 mg/dL [facility] eGFR - PINF [facility] Comment on above: Calculations of jessica mated GFR are performed using the 2020 CKD-EPI Study Refit equation without the race variable for the IDMS-Traceable creatinine methods. https://jasn.asnjournals.org/content//ASN.87328581 88 Glucose [Mass/Vol] 122 mg/dL High 65 - 99 mg/dL [facility] Interpretation and review of laboratory results Abnormal [facility] Potassium [Moles/Vol] 4.3 mmol/L 3.4 - 5.1 mmol/L [facility] Protein [Mass/Vol] 5.7 g/dL Low 5.9 - 7.9 g/dL [facility] Sodium [Moles/Vol] 143 mmol/L 133 - 145 mmol/L [facility] Urea nitrogen [Mass/Vol] 5 mg/dL Low 8 - 25 mg/dL [facility] Albumin [Mass/Vol] 3.3 g/dL Low 3.5-5.0 [facility] Comment on above: Performed By: #### 2 4323-8 ####MELISA Galvan ([id number])[facility] ()[address] [place] [address] ALP (Bld) [Catalytic activity/Vol] 61 U/L Normal 35-125 [facility] Comment on above: Performed By: #### 2 432-8 ####MELISA Galvan ([id number])[facility] ()[address] [place] [address] ALT [Catalytic activity/Vol] 17 U/L Normal 5-40 [facility] Comment on above: Performed By: #### 2 432-8 ####MELISA Galvan ([id number])[facility] ()[address] [place] [address] Anion gap [Moles/Vol] 10 mmol/L Normal <=19 [facility] Comment on above: Performed By: #### 2 432-8 ####MELISA Galvan ([id number])[facility] ()[address] [place] [address] AST [Catalytic activity/Vol] 31 U/L Normal 5-40 [facility] Comment on above: Performed By: #### 2 432-8 ####MELISA Galvan ([id number])[facility] ()[address] [place] [address] Bilirubin [Mass/Vol] 0.2 mg/dL Normal 0.1-1.2 [facility] Comment on above: Performed By: #### 2 432-8 ####MELISA Galvan ([id number])[facility] ()[address] [place] [address] Calcium [Mass/Vol] 8.1 mg/dL Low 8.5-10.4 [facility] Comment on above: Performed By: #### 2 4323-8 ####MELISA Galvan ([id number])[facility] ()[address] [place] [address] Chloride [Moles/Vol] 112 mmol/L High 97-107 [facility] Comment on above: Performed By: #### 2 4323-8 ####MELISA Galvan ([id number])[facility] ()[address] [place] [address] CO2 [Moles/Vol] 21 mmol/L Low 24-31 [facility] Comment on above: Performed By: #### 2 4323-8 ####MELISA Galvan ([id number])[facility] ()[address] [place] [address] Creatinine [Mass/Vol] 0.80 mg/dL Normal 0.40-1.60 [facility] Comment on above: Performed By: #### 2 4323-8 ####MELISA Galvan ([id number])[facility] ()[address] [place] [address] GFR/1.73 sq M.predicted MDRD (S/P/Bld) [Vol rate/Area] mL/min/{1.73_m2} Normal >60 [facility] Comment on above: Result Comment: Calc ulations of estimated GFR are performed using the 2020 CKD-EPI Study Refit equation without the race variable for the IDMS-Traceable creatinine methods. https://jasn.asnjournals.org/content/early//ASN.63240000 88 Performed By: #### 2 4323-8 ####MELISA Galvan ([id number])[facility] ()[address] [place] [address] Glucose [Mass/Vol] 122 mg/dL High 65-99 [facility] Comment on above: Performed By: #### 2 4323-8 ####MELISA Galvan ([id number])[facility] ()[address] [place] [address] Potassium [Moles/Vol] 4.3 mmol/L Normal 3.4-5.1 [facility] Comment on above: Performed By: #### 2 4323-8 ####MELISA Galvan (45641)[facility] ()[address] [place] [address] Protein [Mass/Vol] 5.7 g/dL Low 5.9-7.9 [facility] Comment on above: Performed By: #### 2 4323-8 ####MELISA Galvan ([id number])[facility] ()[address] [place] [address] Sodium [Moles/Vol] 143 mmol/L Normal 133-145 [facility] Comment on above: Performed By: #### 2 4323-8 ####MELISA Galvan ([id number])[facility] ()[address] [place] [address] Urea nitrogen [Mass/Vol] 5 mg/dL Low 8-25 [facility] Comment on above: Performed By: #### 2 4323-8 ####MELISA Galvan ([id number])[facility] ()[address] [place] [address] FL UPPER GI W DOUBLE CONTRAS T W SMALL BOWEL FOLLOW THROUGHon 03-17-2023 FL UPPER GI W DOUBLE CONTRAST W SMALL BOWEL FOLLOW THROUGH Interpreted By: Corie Garza, ADDENDUM: The exam was a single contrast upper GI with small-bowel follow-through Signed by: Corie Garza 04/01/2023 12:58 PM -------- ORIGINAL REPORT -------- Dictation workstation: [id number] Interpreted By: Corie Garza, STUDY: FL UPPER GI W DOUBLE CONTRAST W SMALL BOWEL FOLLOW THROUGH; 03/17/2023 4:40 pm INDICATION: Signs/Symptoms:abdo kerry pain. COMPARISON: None. ACCESSION NUMBER(S): [id number] ORDERING CLINICIAN: TIFFANIE MENDEZ TECHNIQUE: Multiple fluoroscopic spot images were obtained during a single contrast upper GI with KUB. Total fluoroscopy time: 1 minute 32 seconds Radiation exposure (Reference Air Kerma): 99.36 mGy Images: 2 spot images 7 series and 2 delayed AP views of the abdomen FINDINGS: Ems Coordinator images demonstrate postsurgical changes from previous Tan-en-Y [...] Corie Garza 03/17/2023 5:00 PM Dictation workstation: [id number] [facility] RF Upper gastrointestinal tr act and Small bowel Views W air contrast PO and W barium contrast Mary 03-17-2023 Postsurgical changes from gastric bypass. No evidence for obstruction.. MACRO: none Signed by: Corie Garza 03/17/2023 5:00 PM Dictation workstation: [id number] MMODAL Interpreted By: Corie Garza, STUDY: FL UPPER GI W DOUBLE CONTRAST W SMALL BOWEL FOLLOW THROUGH; 03/17/2023 4:40 pm INDICATION: Signs/Symptoms:abdo kerry pain. COMPARISON: None. ACCESSION NUMBER(S): [id number] ORDERING CLINICIAN: TIFFANIE MENDEZ TECHNIQUE: Multiple fluoroscopic spot images were obtained during a single contrast upper GI with KUB. Total fluoroscopy time: 1 minute 32 seconds Radiation exposure (Reference Air Kerma): 99.36 mGy Images: 2 spot images 7 series and 2 delayed AP views of the abdomen FINDINGS: Ems Coordinator images demonstrate postsurgical changes from previous Tan-en-Y [...] Signs/Symptoms:abdo kerry pain. COMPARISON: None. ACCESSION NUMBER(S): [id number] ORDERING CLINICIAN: TIFFANIE MENDEZ TECHNIQUE: Multiple fluoroscopic spot images were obtained during a single contrast upper GI with KUB. Total fluoroscopy time: 1 minute 32 seconds Radiation exposure (Reference Air Kerma): 99.36 mGy Images: 2 spot images 7 series and 2 delayed AP views of the abdomen FINDINGS: Ems Coordinator images demonstrate postsurgical changes from previous Tan-en-Y [...] Corie Garza 03/17/2023 5:00 PM Dictation workstation: [id number] [facility] Work Phone: [facility] Work Phone: Radiology Study observation (narrative) [facility] Work Phone: XR CHEST 1 VIEWon 03-17-2023 XR CHEST 1 VIEW Interpreted By: Nya Ahmadi, STUDY: XR CHEST 1 VIEW 03/17/2023 7:09 pm INDICATION: Signs/Symptoms:S/p NG placement COMPARISON: 03/17/2023 done at 2:05 p.m. ACCESSION NUMBER(S): [id number] ORDERING CLINICIAN: TIFFANIE MENDEZ TECHNIQUE: AP erect view of the chest FINDINGS: The nasogastric tube has not changed in placement with the tip seen within the proximal thoracic esophagus. Heart and mediastinum are normally visualized. Lungs are clear. IMPRESSION: Distal tip of nasogastric tube in proximal thoracic esophagus just above the aortic arch. Signed by: Nya Ahmadi 03/17/2023 8:19 PM Dictation workstation: [id number] [facility] XR CHEST 1 VIEW Interpreted By: Corie Garza, STUDY: XR CHEST 1 VIEW; 03/17/2023 12:41 pm INDICATION: Signs/Symptoms:Stat us post NG tube placement. COMPARISON: None available ACCESSION NUMBER(S): [id number] ORDERING CLINICIAN: TIFFANIE MENDEZ FINDINGS: RESULT: Nasogastric [...] Corie Garza 03/17/2023 4:19 PM Dictation workstation: [id number] [facility] XR Chest Single viewon 03-17 Distal tip of nasogastric tube in proximal thoracic esophagus just above the aortic arch. Signed by: Nya Ahmadi 03/17/2023 8:19 PM Dictation workstation: [id number] MMODAL Interpreted By: Nya Ahmadi, STUDY: XR CHEST 1 VIEW 03/17/2023 7:09 pm INDICATION: Signs/Symptoms:S/p NG placement COMPARISON: 03/17/2023 done at 2:05 p.m. ACCESSION NUMBER(S): [id number] ORDERING CLINICIAN: TIFFANIE MENDEZ TECHNIQUE: AP erect [...] 03/17/2023 done at 2:05 p.m. ACCESSION NUMBER(S): [id number] ORDERING CLINICIAN: TIFFANIE MENDEZ TECHNIQUE: AP erect view of the chest FINDINGS: The nasogastric tube has not changed in placement with the tip seen within the proximal thoracic esophagus. Heart and mediastinum are normally visualized. Lungs are clear. IMPRESSION: Distal tip of nasogastric tube in proximal thoracic esophagus just above the aortic arch. Signed by: Nya Ahmadi 03/17/2023 8:19 PM Dictation workstation: [id number] [facility] Work Phone: Radiology Study observation (narrative) [facility] Work Phone: Nasogastric tube tip is noted at the level of the upper esophagus at the level of the clavicular heads. The nasogastric tube removed itself from the patient soon after this exam. Signed by: Corie Garza 03/17/2023 4:19 PM Dictation workstation: [id number] MMODAL Interpreted By: Corie Garza, STUDY: XR CHEST 1 VIEW; 03/17/2023 12:41 pm INDICATION: Signs/Symptoms:Stat us post NG tube placement. COMPARISON: None available ACCESSION NUMBER(S): [id number] ORDERING CLINICIAN: TIFFANIE MENDEZ FINDINGS: RESULT: Nasogastric [...] tube placement. COMPARISON: None available ACCESSION NUMBER(S): [id number] ORDERING CLINICIAN: TIFFANIE MENDEZ FINDINGS: RESULT: Nasogastric [...] Corie Garza 03/17/2023 4:19 PM Dictation workstation: [id number] [facility] Work Phone: [facility] Work Phone: Radiology Study observation (narrative) [facility] Work Phone: XR Chest Single viewOrdered By: Nya Ahmadi on 03-17-2023 [facility] Work Phone: BMPon 03-16-2023 Anion gap [Moles/Vol] 11 mmol/L Normal 6-16 [facility] Comment on above: Performed By: #### 2 200918, [id number], 3457304, 0907419, 3199483, 6397004 ####[facility] [address] [place] [address] BUN/Creat Ratio 10 No Units Normal 10-20 [facility] Comment on above: Performed By: #### 2 156467, 52837735, 1459131, 8432207, 6202080, 6286366 ####[facility] [address] [place] [address] Calcium [Mass/Vol] 8.5 mg/dL Low 8.9-11.1 [facility] Comment on above: Performed By: #### 2 806700, 95849311, 5268855, 2243844, 4880125, 1928889 ####[facility] [address] [place] [address] Chloride [Moles/Vol] 109 mmol/L Normal 101-111 [facility] Comment on above: Performed By: #### 2 938261, 02233382, 4942342, 6629206, 4951313, 3086531 ####[facility] [address] [place] [address] CO2 [Moles/Vol] 24 mmol/L Normal 21-31 [facility] Comment on above: Performed By: #### 2 511847, 92920685, 4458400, 8784359, 3139835, 5882015 ####[facility] [address] [place] [address] Creatinine [Mass/Vol] 0.8 mg/dL Normal 0.5-1.3 [facility] Comment on above: Performed By: #### 2 769286, 40205732, 3704198, 8589903, 0222907, 7037575 ####[facility] [address] [place] [address] Glucose [Mass/Vol] 77 mg/dL Normal 55-199 [facility] Comment on above: Performed By: #### 2 639424, 73527522, 4293919, 2964605, 6979701, 1052388 ####[facility] [address] [place] [address] Potassium [Moles/Vol] 3.7 mmol/L Normal 3.5-5.3 [facility] Comment on above: Performed By: #### 2 019415, 08740237, 4721446, 0879229, 7846215, 6954234 ####[address] [place] [address] Sodium [Moles/Vol] 140 mmol/L Normal 135-145 [facility] Comment on above: Performed By: #### 2 139013, 12055833, 4679449, 5935537, 9575752, 2924000 ####[facility] [address] [place] [address] Urea nitrogen [Mass/Vol] 8 mg/dL Normal 5-21 [facility] Comment on above: Performed By: #### 2 362717, 53406059, 7849544, 8761515, 7297872, 0971378 ####[facility] [address] [place] [address] CBC W Auto Differential pane l (Bld)on 03-16-2023 Basophils (Bld) [#/Vol] 0.07 10*3/uL [facility] Basophils/100 WBC (Bld) 1.4 % 0.0 - 2.0 % [facility] Eosinophils (Bld) [#/Vol] 0.50 10*3/uL [facility] Eosinophils/100 WBC (Bld) 9.9 % 0.0 - 6.0 % [facility] Erythrocyte distribution width (RBC) [Ratio] 12.3 % 11.5 - 14.5 % [facility] Hematocrit (Bld) [Volume fraction] 33.4 % Low 36.0 - 46.0 % [facility] Hemoglobin (Bld) [Mass/Vol] 10.8 g/dL Low 12.0 - 16.0 g/dL [facility] Immature granulocytes (Bld) [#/Vol] 0.01 10*3/uL [facility] Immature granulocytes/100 WBC (Bld) 0.2 % 0.0 - 0.9 % [facility] Comment on above: Immature Granulocyte Count (IG) includes promyelocytes, myelocytes and metamyelocytes but does not include bands. Percent differential counts (%) should be interpreted in the context of the absolute cell counts (cells/UL). Interpretation and review of laboratory results Abnormal [facility] Lymphocytes (Bld) [#/Vol] 1.70 10*3/uL [facility] Lymphocytes/100 WBC (Bld) 33.7 % 13.0 - 44.0 % [facility] MCH (RBC) [Entitic mass] 30.5 pg 26.0 - 34.0 pg [facility] MCHC (RBC) [Mass/Vol] 32.3 g/dL 32.0 - 36.0 g/dL [facility] MCV (RBC) [Entitic vol] 94 fL 80 - 100 fL [facility] Monocytes (Bld) [#/Vol] 0.31 10*3/uL [facility] Monocytes/100 WBC (Bld) 6.2 % 2.0 - 10.0 % [facility] Neutrophils (Bld) [#/Vol] 2.45 10*3/uL [facility] Comment on above: Percent differential counts (%) should be interpreted in the context of the absolute cell counts (cells/uL). Neutrophils/100 WBC (Bld) 48.6 % 40.0 - 80.0 % [facility] Nucleated RBC/100 WBC (Bld) [Ratio] 0.0 % [facility] Platelets (Bld) [#/Vol] 273 10*3/uL [facility] RBC (Bld) [#/Vol] 3.54 10*6/uL Low Un[facility] WBC (Bld) [#/Vol] 5.0 10*3/uL [facility] Basophils (Bld) [#/Vol] 0.07 x10*3/uL Normal 0.00-0.10 [facility] Comment on above: Performed By: #### 5 7021-8 ####MELISA Galvan (22075)[facility] ()[address] [place] [address] Basophils/100 WBC (Bld) 1.4 % Normal 0.0-2.0 [facility] Comment on above: Performed By: #### 70-8 ####MELISA Galvan (27385)[facility] ()[address] [place] [address] Eosinophils (Bld) [#/Vol] 0.50 x10*3/uL Normal 0.00-0.70 [facility] Comment on above: Performed By: #### 70-8 ####MELISA Galvan ([id number])[facility] ()[address] [place] [address] Eosinophils/100 WBC (Bld) 9.9 % Normal 0.0-6.0 [facility] Comment on above: Performed By: #### 5 7021-8 ####MELISA Glavan ([id number])[facility] ()[address] [place] [address] Erythrocyte distribution width (RBC) [Ratio] 12.3 % Normal 11.5-14.5 [facility] Comment on above: Performed By: #### 7021-8 ####MELISA Galvan (33544)[facility] ()[address] [place] [address] Hematocrit (Bld) [Volume fraction] 33.4 % Low 36.0-46.0 [facility] Comment on above: Performed By: #### 7021-8 ####MELISA Galvan (86267)[facility] ()[address] [place] [address] Hemoglobin (Bld) [Mass/Vol] 10.8 g/dL Low 12.0-16.0 [facility] Comment on above: Performed By: #### 5 7021-8 ####MELISA Galvan (32043)[facility] ()[address] [place] [address] Immature granulocytes (Bld) [#/Vol] 0.01 x10*3/uL Normal 0.00-0.70 [facility] Comment on above: Performed By: #### 5 7021-8 ####MELISA Galvan (58232)[facility] ()[address] [place] [address] Immature granulocytes/100 WBC (Bld) 0.2 % Normal 0.0-0.9 [facility] Comment on above: Result Comment: Janny ture Granulocyte Count (IG) includes promyelocytes, myelocytes and metamyelocytes but does not include bands. Percent differential counts (%) should be interpreted in the context of the absolute cell counts (cells/UL). Performed By: #### 5 7021-8 ####MELISA Galvan (73188)[facility] ()[address] [place] [address] Lymphocytes (Bld) [#/Vol] 1.70 x10*3/uL Normal 1.20-4.80 [facility] Comment on above: Performed By: #### 5 7021-8 ####MELISA Galvan (95363)[facility] ()[address] [place] [address] Lymphocytes/100 WBC (Bld) 33.7 % Normal 13.0-44.0 [facility] Comment on above: Performed By: #### 5 7021-8 ####MELISA Galvan ([id number])[facility] ()[address] [place] [address] MCH (RBC) [Entitic mass] 30.5 pg Normal 26.0-34.0 [facility] Comment on above: Performed By: #### 5 7021-8 ####MELISA Galvan ([id number])[facility] ()[address] [place] [address] MCHC (RBC) [Mass/Vol] 32.3 g/dL Normal 32.0-36.0 [facility] Comment on above: Performed By: #### 5 7021-8 ####MELISA Galvan (49500)[facility] ()[address] [place] [address] MCV (RBC) [Entitic vol] 94 fL Normal 80-100 [facility] Comment on above: Performed By: #### 5 7021-8 ####MELISA Galvan (44446)[facility] ()[address] [place] [address] Monocytes (Bld) [#/Vol] 0.31 x10*3/uL Normal 0.10-1.00 [facility] Comment on above: Performed By: #### 5 7021-8 ####MELISA Galvan (77851)[facility] ()[address] [place] [address] Monocytes/100 WBC (Bld) 6.2 % Normal 2.0-10.0 [facility] Comment on above: Performed By: #### 5 7021-8 ####MELISA Galvan (85329)[facility] ()[address] [place] [address] Neutrophils (Bld) [#/Vol] 2.45 x10*3/uL Normal 1.20-7.70 [facility] Comment on above: Result Comment: Perc ent differential counts (%) should be interpreted in the context of the absolute cell counts (cells/uL). Performed By: #### 5 7021-8 ####MELISA Galvan ([id number])[facility] ()[address] [place] [address] Neutrophils/100 WBC (Bld) 48.6 % Normal 40.0-80.0 [facility] Comment on above: Performed By: #### 5 7021-8 ####MELISA Galvan (10111)[facility] ()[address] [place] [address] Nucleated RBC/100 WBC (Bld) [Ratio] 0.0 /100 WBCs Normal 0.0-0.0 [facility] Comment on above: Performed By: #### 5 7021-8 ####MELISA Galvan (88296)[facility] ()[address] [place] [address] Platelets (Bld) [#/Vol] 273 x10*3/uL Normal 150-450 [facility] Comment on above: Performed By: #### 5 7021-8 ####MELISA Galvan (31381)[facility] ()[address] [place] [address] RBC (Bld) [#/Vol] 3.54 x10*6/uL Low 4.00-5.20 [facility] Comment on above: Performed By: #### 5 7021-8 ####MELISA Galvan (07201)[facility] ()[address] [place] [address] WBC (Bld) [#/Vol] 5.0 x10*3/uL Normal 4.4-11.3 [facility] Comment on above: Performed By: #### 5 7021-8 ####MELISA Galvan (25195)[facility] ()[address] [place] [address] CBC w/ Auto Diffon 4 Basophil Absolute 0.1 E9/L Normal 0.0-0.2 [facility] Comment on above: Performed By: #### 2 751024, 57020868, 7821638, 7553474, 7480630, 2782980 ####[facility] [address] [place] [address] Basophils/100 WBC (Bld) 2.3 % High 0.0-2.0 [facility] Comment on above: Performed By: #### 2 136092, 53898194, 3461807, 6679576, 9821638, 3216690 ####[facility] [address] [place] [address] Eos Absolute 0.5 E9/L Normal 0.0-0.5 [facility] Comment on above: Performed By: #### 2 929679, 82989694, 9602970, 3821140, 0815832, 2497285 ####[address] [address] Eosinophils/100 WBC (Bld) 10.3 % High 0.0-8.0 [facility] Comment on above: Performed By: #### 2 [id number], [id number], 3232016, 7027589, 4693299, [id number] ####[place] [id number] Erythrocyte distribution width (RBC) [Ratio] 13.2 % Normal 10.9-14.2 [facility] Comment on above: Performed By: #### 2 [id number], [id number], 9477558, 6580822, 7980089, 2434111 ####[place] [address]1157 Hematocrit (Bld) [Volume fraction] 38.0 % Normal 34.0-46.0 [facility] Comment on above: Performed By: #### 2 [id number], [id number], 8308498, 0177139, 2517444, 0811309 ####[address] [address] Hemoglobin (Bld) [Mass/Vol] 12.5 g/dL Normal 12.0-16.0 [facility] Comment on above: Performed By: #### 2 638877, [id number], 6881243, 4126884, 8196700, 5836614 ####[address] [address] [address] Lymph Absolute 1.5 E9/L Normal 1.0-4.0 [facility] Comment on above: Performed By: #### 2 963271, 33025300, 2350363, 4920969, 8593861, 1670814 ####[address] [address] Lymphocytes/100 WBC (Bld) 32.0 % Normal 14.0-50.0 [facility] Comment on above: Performed By: #### 2 755064, 87587665, 8942667, 0335452, 4435540, 0749059 ####[address] [address] MCH (RBC) [Entitic mass] 29.7 pg Normal 27.0-34.0 [facility] Comment on above: Performed By: #### 2 678415, 37449996, 3725913, 4002764, 6396027, 0113417 ####[address] [address] MCHC (RBC) [Mass/Vol] 33.0 g/dL Normal 31.4-36.0 [facility] Comment on above: Performed By: #### 2 544318, 38146481, 6143250, 7415970, 3578063, 5643852 ####[address] [address] MCV (RBC) [Entitic vol] 89.8 fL Normal 80.0-100.0 [facility] Comment on above: Performed By: #### 2 065904, 33602150, 0780390, 5406806, 3316810, 7164015 ####[address] [address] Bracken Absolute 0.3 E9/L Normal 0.2-1.0 [facility] Comment on above: Performed By: #### 2 834012, 81854541, 9727404, 6675561, 2473591, 0577117 ####[address] [address] Monocytes/100 WBC (Bld) 6.4 % Normal 4.0-14.0 [facility] Comment on above: Performed By: #### 2 953127, 47293516, 4427721, 8462417, 7579445, 7007682 ####[facility] [address] [place] [address] Neutro Absolute 2.3 E9/L Normal 2.0-7.5 [facility] Comment on above: Performed By: #### 2 521286, 33283167, 8193049, 8391074, 9963495, 9473696 ####[facility] [address] [place] [address] Neutro Auto 49.0 % Normal 36.0-75.0 [facility] Comment on above: Performed By: #### 2 627604, 70696380, 4330970, 1985485, 3297963, 2300372 ####[address] [address] Platelet 313.0 E9/L Normal 150.0-500.0 [facility] Comment on above: Performed By: #### 2 363428, 55721887, 7129841, 9029421, 2130075, 1817581 ####[facility] [address] [place] [address] Platelet mean volume (Bld) [Entitic vol] 8.7 fL Normal 6.4-10.8 [facility] Comment on above: Performed By: #### 2 572341, 91235775, 0951439, 8243394, 4226123, 2894403 ####[facility] [address] [place] [address] RBC 4.2 E12/L Low 4.3-5.9 [facility] Comment on above: Performed By: #### 2 102298, 07128013, 9237085, 7418081, 1849492, 0449579 ####[facility] [address] [place] [address] WBC 4.8 E9/L Normal 4.0-11.0 [facility] Comment on above: Performed By: #### 2 526816, 60709815, 6491725, 7164035, 4715212, 0220730 ####[facility] [address] [place] [address] CHEMISTRYOrdered By: SYSTEM SYSTEM on 03-16-2023 Albumin [...] and IV contrast. COMPARISON: None.. ACCESSION NUMBER(S): [id number] ORDERING CLINICIAN: TIFFANIE MENDEZ TECHNIQUE: Oral contrast [...] Corie Garza 03/16/2023 5:46 PM Dictation workstation: [id number] [facility] CT Abdomen and Pelvis W cont rast Brenden 03-16-2023 Patchy ground-glass densities in the bilateral lung bases may represent atelectasis. Multiple cystic lesions scattered throughout both lobes of the liver. Postsurgical changes of Tan-en-Y gastric bypass. MACRO: none Signed by: Corie Garza 03/16/2023 5:46 PM Dictation workstation: [id number] Interpreted By: Corie Garza, STUDY: CT ABDOMEN PELVIS W IV CONTRAST; 03/16/2023 5:27 pm INDICATION: Signs/Symptoms:abdo kerry pain - with oral and IV contrast. COMPARISON: None.. ACCESSION NUMBER(S): [id number] ORDERING CLINICIAN: TIFFANIE MENDEZ TECHNIQUE: Oral contrast [...] and IV contrast. COMPARISON: None.. ACCESSION NUMBER(S): [id number] ORDERING CLINICIAN: TIFFANIE MENDEZ TECHNIQUE: Oral contrast [...] Corie Garza 03/16/2023 5:46 PM Dictation workstation: [id number] [facility] Work Phone: Radiology Study observation (narrative) [facility] Work Phone: CT Abdomen and Pelvis W cont rast IVOrdered By: Corie Garza on 03-16-2023 [facility] Work Phone: Comprehensive metabolic 2000 panelon 03-16-2023 Albumin [Mass/Vol] 3.0 g/dL Low 3.5 - 5.0 g/dL [facility] ALP (Bld) [Catalytic activity/Vol] 58 U/L 35 - 125 U/L [facility] ALT [Catalytic activity/Vol] 13 U/L 5 - 40 U/L [facility] Anion gap [Moles/Vol] 10 mmol/L NINF - 19 mmol/L [facility] AST [Catalytic activity/Vol] 32 U/L 5 - 40 U/L [facility] Bilirubin [Mass/Vol] mg/dL 0.1 - 1.2 mg/dL [facility] Calcium [Mass/Vol] 7.9 mg/dL Low 8.5 - 10.4 mg/dL [facility] Chloride [Moles/Vol] 110 mmol/L High 97 - 107 mmol/L [facility] CO2 [Moles/Vol] 21 mmol/L Low 24 - 31 mmol/L [facility] Creatinine [Mass/Vol] 0.80 mg/dL 0.40 - 1.60 mg/dL [facility] eGFR - PINF [facility] Comment on above: Calculations of jessica mated GFR are performed using the 2020 CKD-EPI Study Refit equation without the race variable for the IDMS-Traceable creatinine methods. https://jasn.asnjournals.org/content//ASN.57167695 88 Glucose [Mass/Vol] 82 mg/dL 65 - 99 mg/dL [facility] Interpretation and review of laboratory results Abnormal [facility] Potassium [Moles/Vol] 3.7 mmol/L 3.4 - 5.1 mmol/L [facility] Protein [Mass/Vol] 5.5 g/dL Low 5.9 - 7.9 g/dL [facility] Sodium [Moles/Vol] 141 mmol/L 133 - 145 mmol/L [facility] Urea nitrogen [Mass/Vol] 8 mg/dL 8 - 25 mg/dL [facility] Albumin [Mass/Vol] 3.0 g/dL Low 3.5-5.0 [facility] Comment on above: Performed By: #### 2 4323-8 ####MELISA Galvan ([id number])[facility] ()[address] [place] [address] ALP (Bld) [Catalytic activity/Vol] 58 U/L Normal 35-125 [facility] Comment on above: Performed By: #### 2 432-8 ####MELISA Galvan ([id number])[facility] ()[address] [place] [address] ALT [Catalytic activity/Vol] 13 U/L Normal 5-40 [facility] Comment on above: Performed By: #### 2 432-8 ####MELISA Galvan ([id number])[facility] ()[address] [place] [address] Anion gap [Moles/Vol] 10 mmol/L Normal <=19 [facility] Comment on above: Performed By: #### 2 432-8 ####MELISA Galvan ([id number])[facility] ()[address] [place] [address] AST [Catalytic activity/Vol] 32 U/L Normal 5-40 [facility] Comment on above: Performed By: #### 2 432-8 ####MELISA Galvan ([id number])[facility] ()[address] [place] [address] Bilirubin [Mass/Vol] mg/dL Normal 0.1-1.2 [facility] Comment on above: Performed By: #### 2 432-8 ####MELISA Galvan ([id number])[facility] ()[address] [place] [address] Calcium [Mass/Vol] 7.9 mg/dL Low 8.5-10.4 [facility] Comment on above: Performed By: #### 2 432-8 ####MELISA Galvan ([id number])[facility] ()[address] [place] [address] Chloride [Moles/Vol] 110 mmol/L High 97-107 [facility] Comment on above: Performed By: #### 2 432-8 ####MELISA Galvan ([id number])[facility] ()[address] [place] [address] CO2 [Moles/Vol] 21 mmol/L Low 24-31 [facility] Comment on above: Performed By: #### 2 4323-8 ####MELISA Galvan ([id number])[facility] ()[address] [place] [address] Creatinine [Mass/Vol] 0.80 mg/dL Normal 0.40-1.60 [facility] Comment on above: Performed By: #### 2 4323-8 ####MELISA Galvan (23426)[facility] ()[address] [place] [address] GFR/1.73 sq M.predicted MDRD (S/P/Bld) [Vol rate/Area] mL/min/{1.73_m2} Normal >60 [facility] Comment on above: Result Comment: Calc ulations of estimated GFR are performed using the 2020 CKD-EPI Study Refit equation without the race variable for the IDMS-Traceable creatinine methods. https://jasn.asnjournals.org/content//ASN.67688430 88 Performed By: #### 2 4323-8 ####MELISA Galvan ([id number])[facility] ()[address] [place] [address] Glucose [Mass/Vol] 82 mg/dL Normal 65-99 [facility] Comment on above: Performed By: #### 2 4323-8 ####MELISA Galvan ([id number])[facility] ()[address] [place] [address] Potassium [Moles/Vol] 3.7 mmol/L Normal 3.4-5.1 [facility] Comment on above: Performed By: #### 2 4323-8 ####MELISA Galvan (51541)[facility] ()[address] [place] [address] Protein [Mass/Vol] 5.5 g/dL Low 5.9-7.9 [facility] Comment on above: Performed By: #### 2 4323-8 ####MELISA Galvan ([id number])[facility] ()[address] [place] [address] Sodium [Moles/Vol] 141 mmol/L Normal 133-145 [facility] Comment on above: Performed By: #### 2 4323-8 ####MELISA Galvan ([id number])[facility] ()[address] [place] [address] Urea nitrogen [Mass/Vol] 8 mg/dL Normal 8-25 [facility] Comment on above: Performed By: #### 2 4323-8 ####MELISA Galvan ([id number])[facility] ()[address] [place] [address] Consent for Treatmenton 02-17 Consent for Treatment [id number] 972#1.00TIFF [facility] Discharge Instructionson Discharge Instructions [id number] 21#1.00TIFF [facility] Comment on above: Other Comment: wrong folder ED Clinical Summaryon 2023 ED Clinical Summary Normal [facility] ED Note-Nursingon 03-16-2023 ED Note-Nursing called report to Thu PRICE, . Normal [facility] ED Note-Physicianon 03-16-19 24 ED Note-Physician Normal [facility] Comment on above: Result Comment: Elec tronically Signed By: Earnest Jett DO\.br\Date and Time Signed: 03/16/23 11:17 EST ED Patient Education Noteon 03-16-2023 ED Patient Education Note Normal [facility] ED Patient Summaryon 024 ED Patient Summary Normal [facility] HEMATOLOGYOrdered By: SYSTEM SYSTEM on [...] Normal 80.0 - 100.0 fL Remisol Heme Bracken Absolute 0.3 E9/L Normal 0.2 - 1.0 [...] 03-16-2023 Albumin [Mass/Vol] 3.8 g/dL Normal 3.3-5.0 [facility] Comment on above: Performed By: #### 2 274157, 31975716, 9578782, 4180426, 9287345, 8474608 ####[facility] [address] [place] [address] Albumin/Globulin [Mass ratio] 1.5 {ratio} Normal 1.1-2.2 [facility] Comment on above: Performed By: #### 2 120203, 97828764, 9517555, 6345451, 1550777, 6325810 ####[facility] [address] [place] [address] Alk Phos 62 Int._Unit/L Normal 21-98 [facility] Comment on above: Performed By: #### 2 440398, 18064976, 5021068, 4381779, 7221537, 4487773 ####[facility] [address] [place] [address] ALT 21 Int._Unit/L Normal 6-46 [facility] Comment on above: Performed By: #### 2 126350, 31094684, 0275938, 7017686, 2765622, 5596719 ####[facility] [address] [place] [address] AST 37 Int._Unit/L Normal 5-43 [facility] Comment on above: Performed By: #### 2 026540, 40583450, 3692702, 7971912, 8745194, 2541198 ####[facility] [address] [place] [address] Bili Direct 0.1 mg/dL Normal 0.0-0.4 [facility] Comment on above: Performed By: #### 2 876381, 54897766, 7239207, 9807911, 2103638, 7271473 ####[facility] [address] [place] [address] Bili Indirect 0.2 mg/dL Normal 0.1-0.9 [facility] Comment on above: Performed By: #### 2 286612, 30695909, 2582548, 6385424, 9405308, 3638523 ####[facility] [address] [place] [address] Bili Total 0.3 mg/dL Normal 0.0-1.1 [facility] Comment on above: Performed By: #### 2 716522, 21112775, 9653138, 2208950, 4693565, 2573955 ####[facility] [address] [place] [address] Globulin (S) [Mass/Vol] 2.6 g/dL Normal 1.4-4.0 [facility] Comment on above: Performed By: #### 2 274615, 80153180, 3764135, 6304179, 6475966, 2384818 ####[address] [place] [address] Protein [Mass/Vol] 6.4 g/dL Normal 6.0-7.8 [facility] Comment on above: Performed By: #### 2 728973, 89778286, 2471850, 9563417, 7599917, 6121928 ####[address] [address] Influenza virus A and B and SARS-CoV-2 (COVID-19) identified HANK+probe Nom (Resp)on 03-16-2023 FLUAV RNA HANK+probe Ql (Resp) Not detected Not Detected [facility] FLUBV RNA HANK+probe Ql (Resp) Not detected Not Detected [facility] Interpretation and review of laboratory results Normal [facility] SARS-CoV-2 (COVID-19) RNA HANK+probe Ql (Resp) Not detected Not Detected [facility] This assay has received FDA Emergency Use [...] and has been validated for use at [facility]. Negative results do not preclude COVID-19 infections or Influenza A/B infections, and should not be used as the sole basis for diagnosis, treatment, or other management decisions. If Influenza A/B and RSV PCR results are negative, testing for Parainfluenza virus, Adenovirus and Metapneumovirus is routinely performed for [facility] pediatric oncology and intensive care inpatients, and is available on other patients by placing an add-on request. [facility] FLUAV RNA HANK+probe Ql (Resp) Not detected Normal Not Detected [facility] Comment on above: Order Comment: This [...] and has been validated for use at [facility]. Negative results do not preclude COVID-19 infections or Influenza A/B infections, and should not be used as the sole basis for diagnosis, treatment, or other management decisions. If Influenza A/B and RSV PCR results are negative, testing for Parainfluenza virus, Adenovirus and Metapneumovirus is routinely performed for [facility] pediatric oncology and intensive care inpatients, and is available on other patients by placing an add-on request. Performed By: #### 5 2969-3 #### ALON Johnson ([id number]) [facility] [address] [place] [address] FLUBV RNA HANK+probe Ql (Resp) Not detected Normal Not Detected [facility] Comment on above: Order Comment: This [...] and has been validated for use at [facility]. Negative results do not preclude COVID-19 infections or Influenza A/B infections, and should not be used as the sole basis for diagnosis, treatment, or other management decisions. If Influenza A/B and RSV PCR results are negative, testing for Parainfluenza virus, Adenovirus and Metapneumovirus is routinely performed for [facility] pediatric oncology and intensive care inpatients, and is available on other patients by placing an add-on request. Performed By: #### 5 2969-3 #### ALON Johnson ([id number]) [facility] [address] [place] [address] SARS-CoV-2 (COVID-19) RNA HANK+probe Ql (Resp) Not detected Normal Not Detected [facility] Comment on above: Order Comment: This [...] and has been validated for use at [facility]. Negative results do not preclude COVID-19 infections or Influenza A/B infections, and should not be used as the sole basis for diagnosis, treatment, or other management decisions. If Influenza A/B and RSV PCR results are negative, testing for Parainfluenza virus, Adenovirus and Metapneumovirus is routinely performed for [facility] pediatric oncology and intensive care inpatients, and is available on other patients by placing an add-on request. Performed By: #### 5 2969-3 #### ALON Johnson ([id number]) [facility]) [address] [place], [place] [address] Lactic Acidon 03-16-2023 Lactic Acid Lvl 0.6 mmol/L Normal 0.5-2.2 [facility] Comment on above: Performed By: #### 2 698570, 43257915, 8584598, 2093519, 0033858, 9772296 ####[facility] [address] [place] [address] Lipase Levelon 03-16-2023 Lipase Lvl 95 unit/L High 13-58 [facility] Comment on above: Performed By: #### 2 679208, 74805521, 1236198, 4602949, 9234772, 4532388 ####[facility] [address] [place] [address] Pre-Arrival Noteon 4 Pre-Arrival Note Normal [facility] Transfer Documentson 024 Transfer Documents [id number] 04#1.00TIFF Normal [facility] eGFRon 03-16-2023 eGFR 99 mL/min/1.73 m2 Normal >=59 [facility] Comment on above: Order Comment: Order added by Discern Expert. Performed By: #### 2 177472, 16780405, 4295652, 6676666, 8670495, 8621198 ####[facility] [address] [place] [address] BB Draw & Holdon 03-15-2023 BB D&H Sample drawn for Blood Ba Normal [facility] Comment on above: Performed By: #### 1 1760721, 4900662, 79805010, 0098409, 24175959, 2392323, 77080958, 7287448, 4518556 ####[facility] [address] [place] [address] BMPon 03-15-2023 Anion gap [Moles/Vol] 12 mmol/L Normal 6-16 [facility] Comment on above: Performed By: #### 1 0625053, 0655955, 33130700, 7965083, 68041129, 3291304, 02417369, 2008486, 9100750 ####[address] [place] [address] BUN/Creat Ratio 10 No Units Normal 10-20 [facility] Comment on above: Performed By: #### 1 3681911, 7569089, 91551698, 1565802, 96421831, 5438354, 91046957, 6673378, 0037774 ####[address] [place] [address] Calcium [Mass/Vol] 8.5 mg/dL Low 8.9-11.1 [facility] Comment on above: Performed By: #### 1 4547138, 4944148, 83602309, 8748959, 19952141, 8220628, 07691721, 7288824, 8013057 ####[facility] [address] [place] [address] Chloride [Moles/Vol] 110 mmol/L Normal 101-111 [facility] Comment on above: Performed By: #### 1 0656191, 2018189, 88087019, 3429611, 71898445, 8862924, 12883079, 1652593, 1084258 ####[facility] [address] [place] [address] CO2 [Moles/Vol] 22 mmol/L Normal 21-31 [facility] Comment on above: Performed By: #### 1 1434298, 6095183, 87661607, 2989877, 59896278, 3114475, 92359141, 2379922, 2039184 ####[facility] [address] [place] [address] Creatinine [Mass/Vol] 0.8 mg/dL Normal 0.5-1.3 [facility] Comment on above: Performed By: #### 1 9467561, 7164145, 25704654, 3595901, 86887683, 1392912, 37411422, 5244126, 7496962 ####[facility] [address] [place] [address] Glucose [Mass/Vol] 79 mg/dL Normal 55-199 [facility] Comment on above: Performed By: #### 1 5664753, 9659121, 47427354, 0457503, 37279380, 3032903, 43282045, 5178555, 1059374 ####[facility] [address] [place] [address] Potassium [Moles/Vol] 3.6 mmol/L Normal 3.5-5.3 [facility] Comment on above: Performed By: #### 1 2035576, 7197493, 09906588, 7684447, 25314127, 6344546, 84021492, 7555514, 9473801 ####[facility] [address] [place] [address] Sodium [Moles/Vol] 140 mmol/L Normal 135-145 [facility] Comment on above: Performed By: #### 1 0214216, 2279676, 82918189, 9606915, 37757015, 1801377, 58949553, 1383050, 5801739 ####[facility] [address] [place] [address] Urea nitrogen [Mass/Vol] 8 mg/dL Normal 5-21 [facility] Comment on above: Performed By: #### 1 2927254, 2289354, 58461663, 3835321, 39457396, 0424370, 78081934, 4378281, 2624426 ####[facility] [address] [place] [address] CBC w/ Auto Diffon 4 Basophil Absolute 0.1 E9/L Normal 0.0-0.2 [facility] Comment on above: Performed By: #### 1 5248658, 1990238, 35976418, 9475315, 80081614, 6569894, 39411949, 0476686, 0857955 ####[address] [place] [address] Basophils/100 WBC (Bld) 0.9 % Normal 0.0-2.0 [facility] Comment on above: Performed By: #### 1 4910258, 0686889, 47149116, 4261601, 72281078, 4639622, 54694793, 5401784, 0987316 ####[facility] [address] [place] [address] Eos Absolute 0.6 E9/L High 0.0-0.5 [facility] Comment on above: Performed By: #### 1 2131552, 7135034, 00263238, 1721288, 02852483, 4246411, 87227221, 3859678, 5172486 ####[address] [place] [address] Eosinophils/100 WBC (Bld) 9.6 % High 0.0-8.0 [facility] Comment on above: Performed By: #### 1 0600578, 4503924, 78199479, 9570907, 50036073, 4169509, 63112627, 1505729, 3847822 ####[address] [place] [address] Erythrocyte distribution width (RBC) [Ratio] 13.2 % Normal 10.9-14.2 [facility] Comment on above: Performed By: #### 1 4009467, 2673230, 94911288, 8789528, 71492140, 2696849, 94656213, 6277746, 5786862 ####[facility] [address] [place] [address] Hematocrit (Bld) [Volume fraction] 36.0 % Normal 34.0-46.0 [facility] Comment on above: Performed By: #### 1 6038121, 8437019, 73295285, 9702534, 23035771, 8325901, 30508474, 3699507, 4521016 ####[address] [place] [address] Hemoglobin (Bld) [Mass/Vol] 12.2 g/dL Normal 12.0-16.0 [facility] Comment on above: Performed By: #### 1 2817490, 6943670, 67348063, 9690994, 79319081, 9895016, 48156674, 5417622, 2391025 ####[facility] [address] [place] [address] Lymph Absolute 2.0 E9/L Normal 1.0-4.0 [facility] Comment on above: Performed By: #### 1 6667235, 1028421, 84699645, 4004267, 10873133, 1004893, 17056343, 5849939, 7157977 ####[address] [address] Lymphocytes/100 WBC (Bld) 32.4 % Normal 14.0-50.0 [facility] Comment on above: Performed By: #### 1 8154469, 5578118, 73364046, 3240645, 49973949, 7063873, 79432657, 4101088, 3699356 ####[address] [place] [address] MCH (RBC) [Entitic mass] 30.6 pg Normal 27.0-34.0 [facility] Comment on above: Performed By: #### 1 2118560, 2366624, 35333190, 3119525, 78525740, 5743154, 13472385, 7875517, 2157551 ####[facility] [address] [place] [address] MCHC (RBC) [Mass/Vol] 34.3 g/dL Normal 31.4-36.0 [facility] Comment on above: Performed By: #### 1 6644416, 6271928, 01070142, 3003192, 44026052, 1893684, 83375679, 6944868, 7004047 ####[address] [place] [address] MCV (RBC) [Entitic vol] 89.0 fL Normal 80.0-100.0 [facility] Comment on above: Performed By: #### 1 3374853, 7559508, 03150765, 1513556, 43530957, 6809428, 07118086, 6148870, 9019527 ####[address] [address] Bracken Absolute 0.3 E9/L Normal 0.2-1.0 [facility] Comment on above: Performed By: #### 1 3491507, 1447854, 25705451, 5179911, 09174057, 3391905, 46827674, 1309598, 4081513 ####[address] Monocytes/100 WBC (Bld) 5.6 % Normal 4.0-14.0 [facility] Comment on above: Performed By: #### 1 8983569, 7458152, 21308356, 7193155, 19951628, 2254312, 13158979, 9868397, 4243364 ####[facility] [address] [place] [address] Neutro Absolute 3.2 E9/L Normal 2.0-7.5 [facility] Comment on above: Performed By: #### 1 2455743, 2960541, 28000464, 0905361, 60216755, 5499093, 41340061, 3885485, 0566762 ####[address] [place] [address] Neutro Auto 51.5 % Normal 36.0-75.0 [facility] Comment on above: Performed By: #### 1 4292331, 0164867, 13100003, 9533425, 20373788, 0142225, 08031425, 6365380, 2336589 ####[address] [place] [address] Platelet 309.0 E9/L Normal 150.0-500.0 [facility] Comment on above: Result Comment: Demetra meneses with slide review Performed By: #### 1 7965561, 0930128, 32703230, 3734527, 64653702, 6236026, 76333186, 4318070, 9132069 ####[address] [address] Platelet mean volume (Bld) [Entitic vol] 9.1 fL Normal 6.4-10.8 [facility] Comment on above: Performed By: #### 1 2901168, 5628099, 96358198, 0704359, 51327575, 2241921, 89197054, 2369334, 2043098 ####[address] [place] [address] RBC 4.0 E12/L Low 4.3-5.9 [facility] Comment on above: Performed By: #### 1 5831926, 5379431, 57688592, 1786962, 19751433, 4425866, 49853773, 3540730, 0352189 ####[address] [place] [address] WBC 6.1 E9/L Normal 4.0-11.0 [facility] Comment on above: Performed By: #### 1 3284249, 2507718, 07123513, 1899650, 77259753, 5470861, 01992546, 9083034, 2009187 ####[facility] [address] [place] [address] CHEMISTRYOrdered By: SYSTEM SYSTEM on 03-15-2023 Lactic [...] Sensitivity Troponin I Instructions For Use, Alan Orange, September 2017) Urea nitrogen [Mass/Vol] 8 mg/dL Normal 5 - 21 mg/dL Remisol Chem Urea nitrogen/Creatinine [Mass ratio] 10 mg/mg Normal 10 - 20 Remisol Chem COAGULATIONOrdered By: Storm Baca on 03-15-2023 aPTT Coag (PPP) [Time] 32.3 s Normal 25.1 - 36.5 second(s) [facility] Auto Coag Comment on above: [...] the same coagulation reagent and instrumentation as [facility]. Currently there are no coagulation studies available worldwide for children to 14 days, and no normal ranges. Heparin therapeutic range (represented by Anti-Factor Xa activity of 0.2 - 0.4 U/mL) corresponds to PTT of 56.6 - 109.0 sec. INR Coag (PPP) [Relative time] 1.1 {INR} Invalid Interpretation Code [facility] Auto Coag Comment on above: Interpretive Data: I NR results are specifically intended to assess patients stabilized on long-term Anticoagulation therapy suggested INR s Less Intensive Anticoagulation 2.0 3.0 Conventional Range 3.0 4.5 PT Coag (PPP) [Time] 12.6 s High 9.4 - 12.5 second(s) [facility] Auto Coag Comment on above: [...] the same coagulation reagent and instrumentation as [facility]. Currently there are no coagulation studies available worldwide for children to 14 days, and no normal ranges. CT Abdomen/Pelvis w/o Contra ston 03-15-2023 CT Abdomen/Pelvis w/o Contrast Normal [facility] Consent for Treatmenton 02-16 Consent for Treatment [id number] [id number]#[id number] Normal [facility] Discharge Instructionson Discharge Instructions [id number] 236#1.00TIFF Normal [facility] ED Clinical Summaryon 2023 [facility] ED Note-Physician Normal [facility] Comment on above: Result Comment: Elec tronically Signed By: Earnest Jett DO\.rene\Date and Time Signed: 03/15/23 17:31 EST ED Patient Education Noteon 03-15-2023 ED Patient Education Note Normal [facility] ED Patient Summaryon 024 ED Patient Summary Normal [facility] EMS Documentationon 03-15-19 EMS Documentation Please click on link to see report Normal [facility] Comment on above: Result Comment: [...] Normal 80.0 - 100.0 fL Remisol Heme Bracken Absolute 0.3 E9/L Normal 0.2 - 1.0 [...] 03-15-2023 Albumin [Mass/Vol] 3.6 g/dL Normal 3.3-5.0 [facility] Comment on above: Performed By: #### 1 9162262, 0603960, 77266283, 7355898, 08434675, 5994407, 83272882, 9583533, 1779549 ####[facility] [address] [place] [address] Albumin/Globulin [Mass ratio] 1.4 {ratio} Normal 1.1-2.2 [facility] Comment on above: Performed By: #### 1 5118140, 7925236, 48269468, 8445722, 08541148, 9602082, 24411102, 6676969, 0281544 ####[facility] [address] [place] [address] Alk Phos 64 Int._Unit/L Normal 21-98 [facility] Comment on above: Performed By: #### 1 2896625, 3039871, 96746119, 9851379, 70591950, 1098372, 52608758, 6713996, 3430965 ####[facility] [address] [place] [address] ALT 20 Int._Unit/L Normal 6-46 [facility] Comment on above: Performed By: #### 1 6907452, 6628271, 30940660, 1720859, 47367731, 3342847, 38741647, 2340850, 2760374 ####[facility] [address] [place] [address] AST 35 Int._Unit/L Normal 5-43 [facility] Comment on above: Performed By: #### 1 7206905, 5546052, 18776675, 9313614, 74582272, 7646296, 28708785, 9155167, 3125672 ####[facility] [address] [place] [address] Bili Direct 0.0 mg/dL Normal 0.0-0.4 [facility] Comment on above: Performed By: #### 1 3748144, 8180248, 89556469, 6694132, 96631846, 5699342, 91678751, 1386085, 3801787 ####[address] [place] [address] Bili Indirect 0.2 mg/dL Normal 0.1-0.9 [facility] Comment on above: Performed By: #### 1 9978794, 3266970, 00444470, 5376115, 54983891, 2984216, 45739480, 5370391, 3254181 ####[address] [address] Bili Total 0.2 mg/dL Normal 0.0-1.1 [facility] Comment on above: Performed By: #### 1 8647026, 2857014, 51564570, 2762797, 41492403, 6087173, 26598078, 3196604, 9611681 ####[address] [place] [address] Globulin (S) [Mass/Vol] 2.6 g/dL Normal 1.4-4.0 [facility] Comment on above: Performed By: #### 1 6415613, 3278298, 03636567, 9621559, 78717801, 8150382, 28243244, 3182584, 5407575 ####[address] [place] [address] Protein [Mass/Vol] 6.2 g/dL Normal 6.0-7.8 [facility] Comment on above: Performed By: #### 1 5956019, 5641336, 12320608, 8678143, 56867740, 9318664, 16318171, 0717172, 8713082 ####[address] [place] [address] Home Health Recordson 2023 Home Health Records [id number]#1.00TIFF Normal [facility] Lactic Acidon 03-15-2023 Lactic Acid Lvl 0.7 mmol/L Normal 0.5-2.2 [facility] Comment on above: Performed By: #### 1 9928404, 7942807, 03581912, 9387812, 72485996, 4574486, 91103752, 9027117, 4001124 ####[facility] [address] [place] [address] Lipase Levelon 03-15-2023 Lipase Lvl 115 unit/L High 13-58 [facility] Comment on above: Performed By: #### 1 9193367, 5428965, 35418019, 9739517, 66771324, 2623626, 59371581, 6493159, 9423854 ####[facility] [address] [place] [address] PT & PTTon 03-15-2023 aPTT Coag (PPP) [Time] 32.3 second(s) Normal 25.1-36.5 [facility] Comment on above: Result Comment: [...] the same coagulation reagent and instrumentation as [facility]. Currently there are no coagulation studies available worldwide for children to 14 days, and no normal ranges. Heparin therapeutic range (represented by Anti-Factor Xa activity of 0.2 - 0.4 U/mL) corresponds to PTT of 56.6 - 109.0 sec. Performed By: #### 1 4542501, 9499550, 36271888, 9824019, 93468771, 8231794, 71730764, 2433175, 6243307 ####[facility] [address] [place] [address] INR Coag (PPP) [Relative time] 1.1 {INR} Invalid Interpretation Code [facility] Comment on above: Result Comment: INR results are specifically intended to assess patients stabilized on long-term Anticoagulation therapy suggested INR?s ?Less Intensive Anticoagulation? 2.0 ? 3.0Conventional Range 3.0 ? 4.5 Performed By: #### 1 2546492, 0186135, 35531261, 4887895, 85200549, 7468373, 80469976, 1382731, 3649208 ####[facility] [address] [place] [address] PT Coag (PPP) [Time] 12.6 second(s) High 9.4-12.5 [facility] Comment on above: Result Comment: [...] the same coagulation reagent and instrumentation as [facility]. Currently there are no coagulation studies available worldwide for children to 14 days, and no normal ranges. Performed By: #### 1 8032968, 8125114, 69887772, 4293766, 97451605, 3521549, 13538712, 3730822, 4340675 ####[facility] [address] [place] [address] Pre-Arrival Noteon 01-29-202 4 Pre-Arrival Note Normal [facility] Troponin 0 Hr.on 03-15-2023 Troponin I.cardiac [Mass/Vol] ng/mL Low 10.10-27.10 [facility] Comment on above: Result Comment: The 95% CI (Confidence Interval) PPV (Positive Predictive Value) for myocardial infarction in females is 38 pg/mL, in males 51 pg/mL. The results should be used in conjunction with clinical conditions of myocardial infarction.(Access High Sensitivity Troponin I Instructions For Use, Alan Gordy, September 2017) Performed By: #### 1 2006094, 5078751, 50526755, 7131520, 38905136, 1572925, 03158974, 6239611, 4381412 ####[facility] [address] [place] [address] UA With Cult Reflexon 2023 Bilirubin Ql (U) Negative Normal Negative [facility] Comment on above: Performed By: #### 1 3883347 ####[facility] [address] [place] [address] Clarity (U) CLEAR Normal Clear [facility] Comment on above: Performed By: #### 1 7143753 ####[facility] [address] [place] [address] Color (U) ORANGE Abnormal Yellow [facility] Comment on above: Performed By: #### 1 4718204 ####[facility] [address] [place] [address] Crystals LM Ql (Urine sed) Present Normal [facility] Comment on above: Performed By: #### 1 4605356 ####[facility] [address] [place] [address] Epithelial cells.squamous LM.HPF (Urine sed) [#/Area] 0-2 Normal 0-2 [facility] Comment on above: Performed By: #### 1 8504385 ####[facility] [address] [place] [address] Glucose Test strip (U) [Mass/Vol] TRACE Abnormal Negative [facility] Comment on above: Performed By: #### 1 9356008 ####[facility] [address] [place] [address] Hemoglobin Ql (U) Negative Normal Negative [facility] Comment on above: Performed By: #### 1 4833277 ####[address] [address] Ketones (U) [Mass/Vol] Negative Normal Negative [facility] Comment on above: Performed By: #### 1 9115394 ####[address] [address] [place].plasma/Lith ium.RBC (Bld) [Mass ratio] 0-3 Normal 0-3 [facility] Comment on above: Performed By: #### 1 7039038 ####[address] [address] Nitrite Ql (U) See Comment Normal Negative [facility] Comment on above: Result Comment: Test Not Performed Due To Interfering Substance Performed By: #### 1 8464253 ####[address] [address] pH (U) 7.0 [pH] Invalid Interpretation Code 5.0-9.0 [facility] Comment on above: Performed By: #### 1 0373277 ####[address] [address] Protein (U) [Mass/Vol] 1+ Abnormal Negative [facility] Comment on above: Performed By: #### 1 8496306 ####[address] [address] Specific gravity (U) [Rel density] 1.010 Invalid Interpretation Code 1.005-1.030 [facility] Comment on above: Performed By: #### 1 2411908 ####[address] [address] Type of Urine collection method Clean Catch Normal [facility] Comment on above: Performed By: #### 1 3236976 ####[address] [address] Urobilinogen Qn (U) See Comment Normal 0.0-1.0 [facility] Comment on above: Result Comment: Test Not Performed Due To Interfering Substance Performed By: #### 1 1833896 ####[facility] [address] [place] [address] WBC Auto Ql (U) Negative Normal Negative [facility] Comment on above: Performed By: #### 1 4112984 ####[facility] [address] [place] [address] WBC LM.HPF (Urine sed) [#/Area] 0-5 Normal 0-5 [facility] Comment on above: Performed By: #### 1 7405335 ####[facility] [address] [place] [address] URINALYSISOrdered By: Alcira Lee on 03-15-2023 Bilirubin Ql (U) Negative (03/15/23 2:43 PM) Normal Negative [facility] UA Auto SS Clarity (U) Clear (03/15/23 2:43 PM) Normal Clear [facility] UA Auto SS Color (U) Harney *ABN* (03/15/23 2:43 PM) Invalid Interpretation Code [...] PM) Normal Negative [facility] UA Auto SS [place].plasma/Lith ium.RBC (Bld) [Mass ratio] 0-3 /HPF Normal 0-3/HPF [facility] UA Auto SS Nitrite Ql (U) See Comment 1 (03/15/23 2:43 PM) Normal Negative [facility] UA Auto SS Comment on above: Result Comment: Test Not Performed Due To Interfering Substance pH (U) 7.0 *NA* (03/15/23 2:43 PM) Invalid Interpretation Code 5.0 - 9.0 [facility] UA Auto SS Protein (U) [Mass/Vol] 1+ [...] /HPF Normal 0-5/HPF [facility]A Auto SS XR Chest Single Viewon 03-15 XR Chest Single View Normal [facility] eGFRon 03-15-2023 eGFR 99 mL/min/1.73 m2 Normal >=59 [facility] Comment on above: Order Comment: Order added by Discern Expert. Performed By: #### 1 1471005, 3423715, 72651185, 2442573, 29424429, 7214923, 69120752, 8635403, 8022326 ####[facility] [address] [place] [address] Basic metabolic 2000 panelon 03-10-2023 Anion gap [Moles/Vol] 11 mmol/L NINF - 19 mmol/L [facility] Calcium [Mass/Vol] 8.0 mg/dL Low 8.5 - 10.4 mg/dL [facility] Chloride [Moles/Vol] 108 mmol/L High 97 - 107 mmol/L [facility] CO2 [Moles/Vol] 22 mmol/L Low 24 - 31 mmol/L [facility] Creatinine [Mass/Vol] 0.60 mg/dL 0.40 - 1.60 mg/dL [facility] eGFR - PINF [facility] Comment on above: Calculations of jessica mated GFR are performed using the 2020 CKD-EPI Study Refit equation without the race variable for the IDMS-Traceable creatinine methods. https://jasn.asnjournals.org/content/early/ASN.91678237 88 Glucose [Mass/Vol] 89 mg/dL 65 - 99 mg/dL [facility] Interpretation and review of laboratory results Abnormal [facility] Potassium [Moles/Vol] 3.7 mmol/L 3.4 - 5.1 mmol/L [facility] Sodium [Moles/Vol] 141 mmol/L 133 - 145 mmol/L [facility] Urea nitrogen [Mass/Vol] 4 mg/dL Low 8 - 25 mg/dL [facility] Anion gap [Moles/Vol] 11 mmol/L Normal <=19 [facility] Comment on above: Performed By: #### 5 2969-3 #### ALON AMBROSIO L ([id number]) [facility] [address] [place] [address] Calcium [Mass/Vol] 8.0 mg/dL Low 8.5-10.4 [facility] Comment on above: Performed By: #### 5 2969-3 #### ALON MARINMOTZER L ([id number]) [facility] [address] [place] [address] Chloride [Moles/Vol] 108 mmol/L High 97-107 [facility] Comment on above: Performed By: #### 5 2969-3 #### ALON MARINMOTZER L ([id number]) [facility] [address] [place] [address] CO2 [Moles/Vol] 22 mmol/L Low 24-31 [facility] Comment on above: Performed By: #### 5 2969-3 #### ALON MARINMOTZER L ([id number]) [facility] [address] [place] [address] Creatinine [Mass/Vol] 0.60 mg/dL Normal 0.40-1.60 [facility] Comment on above: Performed By: #### 5 2969-3 #### ALON Johnson ([id number]) [facility]) [address] [place] [address] GFR/1.73 sq M.predicted MDRD (S/P/Bld) [Vol rate/Area] mL/min/{1.73_m2} Normal >60 [facility] Comment on above: Result Comment: Calc ulations of estimated GFR are performed using the 2020 CKD-EPI Study Refit equation without the race variable for the IDMS-Traceable creatinine methods. https://jasn.asnjournals.org/content/early/ASN.13019231 88 Performed By: #### 5 2969-3 #### ALON Johnson ([id number]) [facility] [address] [place] [address] Glucose [Mass/Vol] 89 mg/dL Normal 65-99 [facility] Comment on above: Performed By: #### 5 2969-3 #### ALON Johnson ([id number]) [facility]) [address] [place] [address] Potassium [Moles/Vol] 3.7 mmol/L Normal 3.4-5.1 [facility] Comment on above: Performed By: #### 5 2969-3 #### ALON Johnson ([id number]) [facility] [address] [place] [address] Sodium [Moles/Vol] 141 mmol/L Normal 133-145 [facility] Comment on above: Performed By: #### 5 2969-3 #### ALON Johnson ([id number]) [facility]) [address] [place] [address] Urea nitrogen [Mass/Vol] 4 mg/dL Low 8-25 [facility] Comment on above: Performed By: #### 5 2969-3 #### ALON Johnson ([id number]) [facility] [address] [place] [address] CBC panel Auto (Bld)on 03-10 Erythrocyte distribution width (RBC) [Ratio] 12.9 % 11.5 - 14.5 % [facility] Hematocrit (Bld) [Volume fraction] 31.3 % Low 36.0 - 46.0 % [facility] Hemoglobin (Bld) [Mass/Vol] 10.6 g/dL Low 12.0 - 16.0 g/dL [facility] Interpretation and review of laboratory results Abnormal [facility] MCH (RBC) [Entitic mass] 30.7 pg 26.0 - 34.0 pg [facility] MCHC (RBC) [Mass/Vol] 33.9 g/dL 32.0 - 36.0 g/dL [facility] MCV (RBC) [Entitic vol] 91 fL 80 - 100 fL [facility] Nucleated RBC/100 WBC (Bld) [Ratio] 0.0 % [facility] Platelets (Bld) [#/Vol] 215 10*3/uL [facility] RBC (Bld) [#/Vol] 3.45 10*6/uL [facility] WBC (Bld) [#/Vol] 4.0 10*3/uL [facility] Erythrocyte distribution width (RBC) [Ratio] 12.9 % Normal 11.5-14.5 [facility] Comment on above: Performed By: #### 5 2969-3 #### ALON Johnson ([id number]) [facility] [address] [place] [address] Hematocrit (Bld) [Volume fraction] 31.3 % Low 36.0-46.0 [facility] Comment on above: Performed By: #### 5 2969-3 #### ALON Johnson ([id number]) [facility] [address] [place] [address] Hemoglobin (Bld) [Mass/Vol] 10.6 g/dL Low 12.0-16.0 [facility] Comment on above: Performed By: #### 5 2969-3 #### ALON Johnson ([id number]) [facility] [address] [place] [address] MCH (RBC) [Entitic mass] 30.7 pg Normal 26.0-34.0 [facility] Comment on above: Performed By: #### 5 2969-3 #### ALON Johnson ([id number]) [facility] [address] [place] [address] MCHC (RBC) [Mass/Vol] 33.9 g/dL Normal 32.0-36.0 [facility] Comment on above: Performed By: #### 5 2969-3 #### ALON Johnson ([id number]) [facility] [address] [place] [address] MCV (RBC) [Entitic vol] 91 fL Normal 80-100 [facility] Comment on above: Performed By: #### 5 2969-3 #### ALON Johnson ([id number]) [facility] [address] [place] [address] Nucleated RBC/100 WBC (Bld) [Ratio] 0.0 /100 WBCs Normal 0.0-0.0 [facility] Comment on above: Performed By: #### 5 2969-3 #### ALON Johnson ([id number]) [facility] [address] [place] [address] Platelets (Bld) [#/Vol] 215 x10*3/uL Normal 150-450 [facility] Comment on above: Performed By: #### 5 2969-3 #### ALON Johnson ([id number]) [facility] [address] [place] [address] RBC (Bld) [#/Vol] 3.45 x10*6/uL Low 4.00-5.20 [facility] Comment on above: Performed By: #### 5 2969-3 #### ALON Johnson ([id number]) [facility] [address] [place] [address] WBC (Bld) [#/Vol] 4.0 x10*3/uL Low 4.4-11.3 [facility] Comment on above: Performed By: #### 5 2969-3 #### ALON Johnson ([id number]) [facility]) [address] [place], [place] [address] Gastrointestinal pathogens i dentified HNAK+probe Nom (Stl)Ordered By: Edwige Bronson on 03-10-2023 Campylobacter Group Not detected Not Detected [facility] E. coli stx1 gene HANK+probe Ql (Stl) Not detected Not Detected [facility] E. coli stx2 gene HANK+probe Ql (Stl) Not detected Not Detected [facility] Interpretation and review of laboratory results Normal [facility] Norovirus genogroup I and II RNA HANK+probe Nom (Stl) Not detected Not Detected [facility] Rotavirus RNA HANK+probe Nom (Stl) Not detected Not Detected [facility] Salmonella species Not detected Not Detected [facility] Shigella sp DNA HANK+probe Ql (Unsp spec) Not detected Not Detected [facility] Vibrio Group Not detected Not Detected [facility] Y. enterocolitica DNA HANK+probe Ql (Stl) Not detected Not Detected [facility] Glucose Test strip manual (B ld) [Mass/Vol]on 03-10-2023 Glucose [Mass/Vol] 104 mg/dL High 74 - 99 mg/dL [facility] Interpretation and review of laboratory results Abnormal [facility] Glucose [Mass/Vol] 104 mg/dL High 74-99 [facility] Comment on above: Performed By: #### 5 2969-3 #### ALON Johnson ([id number]) [facility] [address] [place] [address] Glucose [Mass/Vol] 82 mg/dL 74 - 99 mg/dL [facility] Glucose [Mass/Vol] 109 mg/dL High 74 - 99 mg/dL [facility] Interpretation and review of laboratory results Normal [facility] Interpretation and review of laboratory results Abnormal [facility] Glucose [Mass/Vol] 109 mg/dL High 74-99 [facility] Comment on above: Performed By: #### 5 2969-3 #### ALON Johnson ([id number]) [facility] [address] [place] [address] Glucose [Mass/Vol] 84 mg/dL 74 - 99 mg/dL [facility] Interpretation and review of laboratory results Normal [facility] Glucose [Mass/Vol] 84 mg/dL Normal 74-99 [facility] Comment on above: Performed By: #### 5 2969-3 #### ALON Johnson ([id number]) [facility] [address] [place] [address] Glucose [Mass/Vol] 79 mg/dL 74 - 99 mg/dL [facility] Interpretation and review of laboratory results Normal [facility] Glucose [Mass/Vol] 79 mg/dL Normal 74-99 [facility] Comment on above: Performed By: #### 5 2969-3 #### ALON Johnson ([id number]) [facility] [address] [place] [address] Basic metabolic 2000 panelon 03-09-2023 Anion gap [Moles/Vol] 10 mmol/L NINF - 19 mmol/L [facility] Calcium [Mass/Vol] 8.3 mg/dL Low 8.5 - 10.4 mg/dL [facility] Chloride [Moles/Vol] 105 mmol/L 97 - 107 mmol/L [facility] CO2 [Moles/Vol] 20 mmol/L Low 24 - 31 mmol/L [facility] Creatinine [Mass/Vol] 0.60 mg/dL 0.40 - 1.60 mg/dL [facility] eGFR - PINF [facility] Comment on above: Calculations of jessica mated GFR are performed using the 2020 CKD-EPI Study Refit equation without the race variable for the IDMS-Traceable creatinine methods. https://jasn.asnjournals.org/content//ASN.99130430 88 Glucose [Mass/Vol] 98 mg/dL 65 - 99 mg/dL [facility] Interpretation and review of laboratory results Abnormal [facility] Potassium [Moles/Vol] 3.7 mmol/L 3.4 - 5.1 mmol/L [facility] Sodium [Moles/Vol] 135 mmol/L 133 - 145 mmol/L [facility] Urea nitrogen [Mass/Vol] mg/dL Low 8 - 25 mg/dL [facility] Comment on above: Result rechecked [facility] Anion gap [Moles/Vol] 10 mmol/L Normal <=19 [facility] Comment on above: Performed By: #### 2 4321-2 ####MELISA Galvan ([id number])[facility] ()[address] [place] [address] Calcium [Mass/Vol] 8.3 mg/dL Low 8.5-10.4 [facility] Comment on above: Performed By: #### 2 4321-2 ####MELISA Galvan ([id number])[facility] ()[address] [place] [address] Chloride [Moles/Vol] 105 mmol/L Normal 97-107 [facility] Comment on above: Performed By: #### 2 4321-2 ####MELISA Galvan ([id number])[facility] ()[address] [place] [address] CO2 [Moles/Vol] 20 mmol/L Low 24-31 [facility] Comment on above: Performed By: #### 2 4321-2 ####MELISA Galvan ([id number])[facility] ()[address] [place] [address] Creatinine [Mass/Vol] 0.60 mg/dL Normal 0.40-1.60 [facility] Comment on above: Performed By: #### 2 4321-2 ####MELISA Galvan ([id number])[facility] ()[address] [place] [address] GFR/1.73 sq M.predicted MDRD (S/P/Bld) [Vol rate/Area] mL/min/{1.73_m2} Normal >60 [facility] Comment on above: Result Comment: Calc ulations of estimated GFR are performed using the 2020 CKD-EPI Study Refit equation without the race variable for the IDMS-Traceable creatinine methods. https://jasn.asnjournals.org/content/early//ASN.11053416 88 Performed By: #### 2 4321-2 ####MELISA Galvan ([id number])[facility] ()[address] [place] [address] Glucose [Mass/Vol] 98 mg/dL Normal 65-99 [facility] Comment on above: Performed By: #### 2 4321-2 ####MELISA Galvan (49962)[facility] ()[address] [place] [address] Potassium [Moles/Vol] 3.7 mmol/L Normal 3.4-5.1 [facility] Comment on above: Performed By: #### 2 4321-2 ####MELISA Galvan (60865)[facility] ()[address] [place] [address] Sodium [Moles/Vol] 135 mmol/L Normal 133-145 [facility] Comment on above: Performed By: #### 2 4321-2 ####MELISA Galvan (35164)[facility] ()[address] [place] [address] Urea nitrogen [Mass/Vol] mg/dL Low 8-25 [facility] Comment on above: Result Comment: Resu lt rechecked Performed By: #### 2 4321-2 ####MELISA Galvan ([id number])[facility] (MW)[address] [place] [address] C. difficile toxin A+B tcdA+ tcdB genes HANK+probe Ql (Stl)on 03-09-2023 Interpretation and review of laboratory results Normal [facility] This test is an FDA-cleared real-time PCR [...] performed more than once per [address] [facility] C. difficile, PCRon 03-09-19 C. difficile toxin A+B tcdA+tcdB genes HANK+probe Ql (Stl) Not detected Not Detected [facility] CBC panel Auto (Bld)on 03-09 Erythrocyte distribution width (RBC) [Ratio] 12.7 % 11.5 - 14.5 % [facility] Hematocrit (Bld) [Volume fraction] 34.6 % Low 36.0 - 46.0 % [facility] Hemoglobin (Bld) [Mass/Vol] 11.7 g/dL Low 12.0 - 16.0 g/dL [facility] Interpretation and review of laboratory results Abnormal [facility] MCH (RBC) [Entitic mass] 30.8 pg 26.0 - 34.0 pg [facility] MCHC (RBC) [Mass/Vol] 33.8 g/dL 32.0 - 36.0 g/dL [facility] MCV (RBC) [Entitic vol] 91 fL 80 - 100 fL [facility] Nucleated RBC/100 WBC (Bld) [Ratio] 0.0 % [facility] Platelets (Bld) [#/Vol] 226 10*3/uL [facility] RBC (Bld) [#/Vol] 3.80 10*6/uL [facility] WBC (Bld) [#/Vol] 6.8 10*3/uL [facility] Erythrocyte distribution width (RBC) [Ratio] 12.7 % Normal 11.5-14.5 [facility] Comment on above: Performed By: #### 5 8410-2 ####MELISA Galvan ([id number])[facility] ()[address] [place] [address] Hematocrit (Bld) [Volume fraction] 34.6 % Low 36.0-46.0 [facility] Comment on above: Performed By: #### 5 8410-2 ####MELISA Galvan (47050)[facility] ()[address] [place] [address] Hemoglobin (Bld) [Mass/Vol] 11.7 g/dL Low 12.0-16.0 [facility] Comment on above: Performed By: #### 5 8410-2 ####MELISA Galvan (97913)[facility] ()[address] [place] [address] MCH (RBC) [Entitic mass] 30.8 pg Normal 26.0-34.0 [facility] Comment on above: Performed By: #### 5 8410-2 ####MELISA Galvan (26723)[facility] ()[address] [place] [address] MCHC (RBC) [Mass/Vol] 33.8 g/dL Normal 32.0-36.0 [facility] Comment on above: Performed By: #### 5 8410-2 ####MELISA Galvan (52603)[facility] ()[address] [place] [address] MCV (RBC) [Entitic vol] 91 fL Normal 80-100 [facility] Comment on above: Performed By: #### 5 8410-2 ####MELISA Galvan (79196)[facility] ()[address] [place] [address] Nucleated RBC/100 WBC (Bld) [Ratio] 0.0 /100 WBCs Normal 0.0-0.0 [facility] Comment on above: Performed By: #### 5 8410-2 ####MELISA Galvan (73353)[facility] ()[address] [place] [address] Platelets (Bld) [#/Vol] 226 x10*3/uL Normal 150-450 [facility] Comment on above: Performed By: #### 5 8410-2 ####MELISA Galvan (15182)[facility] ()[address] [place] [address] RBC (Bld) [#/Vol] 3.80 x10*6/uL Low 4.00-5.20 [facility] Comment on above: Performed By: #### 5 8410-2 ####MELISA Galvan (35035)[facility] ()[address] [place] [address] WBC (Bld) [#/Vol] 6.8 x10*3/uL Normal 4.4-11.3 [facility] Comment on above: Performed By: #### 5 8410-2 ####MELISA Galvan (35591)[facility] ()[address] [place] [address] Clostridioides difficile tox in A+B tcdA+tcdB geneson 03-09-2023 C. difficile toxin A+B tcdA+tcdB genes HANK+probe Ql (Stl) Clostridioides difficile toxin A+B tcdA+tcdB genes Not Detected Normal Not Detected [facility] Comment on above: Order Comment: This [...] Performed By: #### 8 0685-1 ####MELISA Galvan (54189)[facility] ()[address] [place] [address] Gastrointestinal pathogens i dentifiedon 03-09-2023 Gastrointestinal pathogens [...] Rotavirus RNA Not Detected Normal Not Detected [facility] Comment on above: Performed By: #### 5 2969-3 #### ALON Johnson ([id number]) [facility] ([facility]) [address] [place] [address] Glucose Test strip manual (B ld) [Mass/Vol]on 03-09-2023 Glucose [Mass/Vol] 82 mg/dL Normal 74-99 [facility] Comment on above: Performed By: #### 5 2969-3 #### ALON Johnson ([id number]) [facility] ([facility]) [address] [place] [address] Glucose [Mass/Vol] 91 mg/dL 74 - 99 mg/dL [facility] Interpretation and review of laboratory results Normal [facility] Glucose [Mass/Vol] 91 mg/dL Normal 74-99 [facility] Comment on above: Performed By: #### 5 2969-3 #### ALON Johnson ([id number]) [facility] ([facility]) [address] [place] [address] Glucose [Mass/Vol] 83 mg/dL 74 - 99 mg/dL [facility] Interpretation and review of laboratory results Normal [facility] Glucose [Mass/Vol] 83 mg/dL Normal 74-99 [facility] Comment on above: Performed By: #### 2 341-6 ####MELISA Galvan (78849)[facility] ()[address] [place] [place] [address] Glucose [Mass/Vol] 82 mg/dL 74 - 99 mg/dL [facility] Interpretation and review of laboratory results Normal [facility] Glucose [Mass/Vol] 82 mg/dL Normal 74-99 [facility] Comment on above: Performed By: #### 2 341-6 ####MELISA Galvan ([id number])[facility] ()[address] [place] [address] Glucose [Mass/Vol] 120 mg/dL High 74 - 99 mg/dL [facility] Interpretation and review of laboratory results Abnormal [facility] Glucose [Mass/Vol] 120 mg/dL High 74-99 [facility] Comment on above: Performed By: #### 2 341-6 ####MELISA Galvan (93714)[facility] ()[address] [place] [address] Glucose [Mass/Vol] 62 mg/dL Low 74 - 99 mg/dL [facility] Interpretation and review of laboratory results Abnormal [facility] Glucose [Mass/Vol] 62 mg/dL Low 74-99 [facility] Comment on above: Performed By: #### 2 341-6 ####MELISA Galvan ([id number])[facility] ()[address] [place] [address] Basic metabolic 2000 panelon 03-08-2023 Anion gap [Moles/Vol] 8 mmol/L NINF - 19 mmol/L [facility] Calcium [Mass/Vol] 8.2 mg/dL Low 8.5 - 10.4 mg/dL [facility] Chloride [Moles/Vol] 106 mmol/L 97 - 107 mmol/L [facility] CO2 [Moles/Vol] 22 mmol/L Low 24 - 31 mmol/L [facility] Creatinine [Mass/Vol] 0.70 mg/dL 0.40 - 1.60 mg/dL [facility] eGFR - PINF [facility] Comment on above: Calculations of jessica mated GFR are performed using the 2020 CKD-EPI Study Refit equation without the race variable for the IDMS-Traceable creatinine methods. https://jasn.asnjournals.org/content//ASN.14704938 88 Glucose [Mass/Vol] 91 mg/dL 65 - 99 mg/dL [facility] Interpretation and review of laboratory results Abnormal [facility] Potassium [Moles/Vol] 3.7 mmol/L 3.4 - 5.1 mmol/L [facility] Sodium [Moles/Vol] 136 mmol/L 133 - 145 mmol/L [facility] Urea nitrogen [Mass/Vol] 3 mg/dL Low 8 - 25 mg/dL [facility] Anion gap [Moles/Vol] 8 mmol/L Normal <=19 [facility] Comment on above: Performed By: #### 2 4323-8 #### MELISA Galvan (66921) [facility] () [address] [place] [address] Calcium [Mass/Vol] 8.2 mg/dL Low 8.5-10.4 [facility] Comment on above: Performed By: #### 2 4323-8 #### MELISA Galvan (62162) [facility] () [address] [place] [address] Chloride [Moles/Vol] 106 mmol/L Normal 97-107 [facility] Comment on above: Performed By: #### 2 4323-8 #### MELISA Galvan ([id number]) [facility] () [address] [place] [address] CO2 [Moles/Vol] 22 mmol/L Low 24-31 [facility] Comment on above: Performed By: #### 2 4323-8 #### MELISA Galvan (81220) [facility] () [address] [place] [address] Creatinine [Mass/Vol] 0.70 mg/dL Normal 0.40-1.60 [facility] Comment on above: Performed By: #### 2 4323-8 #### MELISA Galvan ([id number]) [facility] () [address] [place] [address] GFR/1.73 sq M.predicted MDRD (S/P/Bld) [Vol rate/Area] mL/min/{1.73_m2} Normal >60 [facility] Comment on above: Result Comment: Calc ulations of estimated GFR are performed using the 2020 CKD-EPI Study Refit equation without the race variable for the IDMS-Traceable creatinine methods. https://jasn.asnjournals.org/content/early//ASN.89289567 88 Performed By: #### 2 4323-8 #### MELISA Galvan ([id number]) [facility] () [address] [place] [address] Glucose [Mass/Vol] 91 mg/dL Normal 65-99 [facility] Comment on above: Performed By: #### 2 4323-8 #### MELISA Galvan (72808) [facility] () [address] [place] [address] Potassium [Moles/Vol] 3.7 mmol/L Normal 3.4-5.1 [facility] Comment on above: Performed By: #### 2 4323-8 #### MELISA Galvan (61032) [facility] () [address] [place] [address] Sodium [Moles/Vol] 136 mmol/L Normal 133-145 [facility] Comment on above: Performed By: #### 2 4323-8 #### MELISA Galvan (91199) [facility] () [address] [place] [address] Urea nitrogen [Mass/Vol] 3 mg/dL Low 8-25 [facility] Comment on above: Performed By: #### 2 4323-8 #### MELISA Galvan (73771) [facility] () [address] [place] [address] CBC panel Auto (Bld)on 03-08 Erythrocyte distribution width (RBC) [Ratio] 12.8 % 11.5 - 14.5 % [facility] Hematocrit (Bld) [Volume fraction] 32.2 % Low 36.0 - 46.0 % [facility] Hemoglobin (Bld) [Mass/Vol] 10.9 g/dL Low 12.0 - 16.0 g/dL [facility] Interpretation and review of laboratory results Abnormal [facility] MCH (RBC) [Entitic mass] 31.3 pg 26.0 - 34.0 pg [facility] MCHC (RBC) [Mass/Vol] 33.9 g/dL 32.0 - 36.0 g/dL [facility] MCV (RBC) [Entitic vol] 93 fL 80 - 100 fL [facility] Nucleated RBC/100 WBC (Bld) [Ratio] 0.0 % [facility] Platelets (Bld) [#/Vol] 171 10*3/uL [facility] RBC (Bld) [#/Vol] 3.48 10*6/uL [facility] WBC (Bld) [#/Vol] 4.2 10*3/uL [facility] Erythrocyte distribution width (RBC) [Ratio] 12.8 % Normal 11.5-14.5 [facility] Comment on above: Performed By: #### 2 4323-8 #### MELISA Galvan (45076) [facility] () [address] [place] [address] Hematocrit (Bld) [Volume fraction] 32.2 % Low 36.0-46.0 [facility] Comment on above: Performed By: #### 2 4323-8 #### MELISA Galvan (95208) [facility] () [address] [place] [address] Hemoglobin (Bld) [Mass/Vol] 10.9 g/dL Low 12.0-16.0 [facility] Comment on above: Performed By: #### 2 4323-8 #### MELISA Galvan (88449) [facility] () [address] [place] [address] MCH (RBC) [Entitic mass] 31.3 pg Normal 26.0-34.0 [facility] Comment on above: Performed By: #### 2 432-8 #### MELISA Galvan (76675) [facility] () [address] [place] [address] MCHC (RBC) [Mass/Vol] 33.9 g/dL Normal 32.0-36.0 [facility] Comment on above: Performed By: #### 2 432-8 #### MELISA Galvan (22906) [facility] () [address] [place] [address] MCV (RBC) [Entitic vol] 93 fL Normal 80-100 [facility] Comment on above: Performed By: #### 2 432-8 #### MELISA Galvan (62406) [facility] () [address] [place] [address] Nucleated RBC/100 WBC (Bld) [Ratio] 0.0 /100 WBCs Normal 0.0-0.0 [facility] Comment on above: Performed By: #### 2 4323-8 #### MELISA Galvan (80814) [facility] () [address] [place] [address] Platelets (Bld) [#/Vol] 171 x10*3/uL Normal 150-450 [facility] Comment on above: Performed By: #### 2 432-8 #### MELISA Galvan (83558) [facility] () [address] [place] [address] RBC (Bld) [#/Vol] 3.48 x10*6/uL Low 4.00-5.20 [facility] Comment on above: Performed By: #### 2 432-8 #### MELISA Galvan (91472) [facility] () [address] [place] [address] WBC (Bld) [#/Vol] 4.2 x10*3/uL Low 4.4-11.3 [facility] Comment on above: Performed By: #### 2 4323-8 #### MELISA Galvan (91439) [facility] () [address] [place] [address] Glucose Test strip manual (B ld) [Mass/Vol]on 03-08-2023 Glucose [Mass/Vol] 89 mg/dL 74 - 99 mg/dL [facility] Interpretation and review of laboratory results Normal [facility] Glucose [Mass/Vol] 89 mg/dL Normal 74-99 [facility] Comment on above: Performed By: #### 2 341-6 ####MELISA Galvan (21636)[facility] ()[address] [place] [address] Glucose [Mass/Vol] 85 mg/dL 74 - 99 mg/dL [facility] Interpretation and review of laboratory results Normal [facility] Glucose [Mass/Vol] 85 mg/dL Normal 74-99 [facility] Comment on above: Performed By: #### 2 341-6 ####MELISA Galvan (91425)[facility] ()[address] [facility] [address] Glucose [Mass/Vol] 151 mg/dL High 74 - 99 mg/dL [facility] Interpretation and review of laboratory results Abnormal [facility] Glucose [Mass/Vol] 151 mg/dL High 74-99 [facility] Comment on above: Performed By: #### 2 341-6 ####MELISA Galvan (63966)[facility] ()[address] [facility] [place] [facility] [place] [address] Glucose [Mass/Vol] 89 mg/dL 74 - 99 mg/dL [facility] Interpretation and review of laboratory results Normal [facility] Glucose [Mass/Vol] 89 mg/dL Normal 74-99 [facility] Comment on above: Performed By: #### 2 4323-8 #### MELISA Galvan (09947) [facility] () [address] [place] [address] Glucose [Mass/Vol] 97 mg/dL 74 - 99 mg/dL [facility] Interpretation and review of laboratory results Normal [facility] Glucose [Mass/Vol] 97 mg/dL Normal 74-99 [facility] Comment on above: Performed By: #### 2 4323-8 #### MELISA Galvan (17896) [facility] () [address] [place] [address] Glucose [Mass/Vol] 102 mg/dL High 74 - 99 mg/dL [facility] Interpretation and review of laboratory results Abnormal [facility] Glucose [Mass/Vol] 102 mg/dL High 74-99 [facility] Comment on above: Performed By: #### 2 4323-8 #### MELISA Galvan (22216) [facility] () [address] [place] [address] Surgical pathology studyOrde red By: Melisa Rodriguez on 03-08-2023 Laboratory comment John (Report) s2zffOZaMDHvk4neJVB mbGFuZzEwMzNcZnRuYm pcdWMxIHtccnRmMVxzc 8BjQ6PmXlBxREwhoqLe XGRlZmxhbmcxMDMzXGZ 0bmJqXHVjMVxkZWZmMH yuWh6pqUAsgBvlUuObF HZuy3vyruOVJCcoBTHW DAu0p5toIRHvOoK7uTW aZKsbY5wqrfDpgIFqM6 Jzw5HuNIc4hY70CRWud J9egCVhUKnajcFlZeY1 AVlnUFMpTsY6YCAptMF jWPQtI0ucBEJuPVvrJN JyARrtxNEyAGG9rZcog 1C7cGXfrIWtoSaiDpRv IpWnUoBDq3GhXOl3jQh gD9VdHYDbYkX9fKUnYB SaLDjpEJKdGZPkflL6t I29JZylkoY4vLRpg4Va m63ob962eA1nnGRkXBX 3MTIyNDBccGFwZXJoMT K1DKQjqGHyB4xsFkQgf AYgX9XtNrPvkMCiH1Nb CoBxsEHfU3MjQvYetBQ sOKPdeMQ1CNqxi935MM W5FhLyBV9xA5Kyv3Z1i L6psSXhQKTzwWKjRaZc GSNidb5wiJMsDVmek9M nQLY4qnD3zPZqjNIjBY CvGE22Bvmpg1VtQsliD RF0VXSvjkZxe5Fyc0yv OpBmrhTfD5ezW1XyQLS oZWFkXHBnYnJkcmZvb3 Hjz8IpyGTfrWy9i8llE KGnBVYmeVttq7vcALL4 WSIoD8W7nZCrl4fmGNu pCUUknTE6duL1HWibLV LcwlA1tsM8ENtrSRUwi EI5hfH1CDxzMMPzGqA2 smE0DExqJGRxIZA4PaP sHZAum3AwppbtOeMes6 CjfBMdIJqyI03in431M IGnjqEaV5accDYpudcy wDWnmgqfXDiwqfO6LPI sXHBsYWluXGYxXGZzMj BcbGFuZzEwMzNcaGlja FxmMVxkYmNoXGYxXGxv T6nlZkIfHfWnIZBSqUQ 9iAUxn7tyzaJ9sRPwEO 2zOHJrgOKxosUip5O4X CE6qKLkkR6sxLIiDGKf lJLvpcIigu97rEBfrYM 1MAExBMDdaRWmmY7iPS SnPSFGsE7ntFLPbuNhl jRrONYxnAxpqn0ZmOTv nh2syQXnZ5TrlImbhMZ zIHRoYXQgdGhleSBoYX UfHCHfeltbc2MiIQAwk BWxH5EcZS6sTIDnzd28 [facility] Work Phone: Pathology report Cancer Narrative Surgical Pathology Case: [id number] Authorizing Provider: Sherry Magaña MD Collected: 03/05/2023 1125 Ordering Location: [facility] Received: 03/05/2023 1314 Center OR Pathologist: Melisa Rodriguez MD Specimen: LIGAMENT, Median Arcuate Ligament [facility] Work Phone: Pathology report final diagnosis Narrative x0eekWVzPEPshLVoRCV wNFxhbnNpXHNwbHRwZ3 LpwiswNCqsYO5vQK6qm GxhdHRveWVuXGRlZmYw m8uvg781aWGpl3jqOGE JWHobPECRERi4g4dxDX UIblcnyPv9sLkpB92eh 2U1BfacO8zxLDZuIMdf ZBWmJYfqgFZjECl7CXK hcGVydzEyMjQwXHBhcG AaiAC1JVLxVY5qfbrtC WxvYQbpJFSolgX6NAMd wIViL3HhPNXgCN8rnni zPIN4GFxrKVRrRLU2If JeNWQwx5Vhdad3KnTme Dq0b8ffJMBnFNHylTbb c6gaFYJ1OJJebWImP1t tiG4gIMTwGO6pmwvba2 ugULffALmqCUGjuKD1f zA2RVGpmHFwZ5PclD9g NDQwXHBhcmRccGxhaW5 cZjFcZnMyMlxjZjFccG OhJY5ATWoULkNZVgUBJ UXEJQnIE8SRGI0NHSLO NDYRM9gZKxpkpCVhEFX xWhBPjSZov6FdlVDqp1 GnUE8uiBMjlWZfgkFnz 07siPllDrKaF56qlnFl u8LjhZpygGfzcRZyhRg ym2AxFZMfh2C6JQwoO9 xpbmljYWxseSBtZWRpY Y5cQBGinZB1IVFnwWpx sCGvtDXvjZ1oyp3bGE1 ccGFyfQ== [facility] Work Phone: Pathology report gross observation Narrative o0nccBPsJTQmyQVRJGB 9TBZuWB8hjKtsxLt1sO jzHOEcimN7hCUqMQtep 0gkGSV0w6deuvUOKejw VWUxTM4hVExbXETvVF5 nZmUwXGRlZmYxXHBhcG VydzEyMjQwXHBhcGVya PV3YWUrZP1wogfsROmj MTddJZLwzwI3ZLYthOA fL3OeKECiFL5devwuXH P9WNUVEjitOr7qqLKyw CANCntcZjFcZmNoYXJz UEDwSSOlhHlaY9Ddo8Q cYNl5sO0Yn5uyBxnkB8 kjzpQpuGVeAe2kvTIEd ggwkOr1hL9KPLAoE5Rv ST0Yu4toNPZqvFWyLQG 0XXtao0prHIfrPXY3BW QiDZZxBGDdDE7SJaQvA WnfZQCeBQQnKCb3GJx5 SMPAMODnXoH6MWS5CGq 2NRm4TQpjajldFEy5MM KwQQcyeOPqIJ6yjFtzP jqzrZyfp8ZjeDLrUGKe IFxcaWQgNTEwMDIgXFx tFsXJXcNsPwP7WjByHA KlPvB8SLr1FHJWBiPnS vWwJQIaSnf7XDDsNFs5 AYa9KMjYBrM6TlZ4NLk 5BhpqOHL9AqCaWYumdE BcXHQgMiBcXHNzIDMgX KlnfJQfZE8idToxOMFq GZ5BQHQzOWtlEMDlbLJ THSE8HY6bXPYSAhklmK FrLLJrHVzzgJZvG9lhD jJcZnMyMCBBOiBSZWNl aXZlZCBmcmVzaCBsYWJ lbGVkIHdpdGggdGhlIH IjrBhosuKxulRdPM5qL TDdKSDzv4HwbTUwlRJv cI4xANCbZP7nVXDpMKD xXO8wWLDziOM0EIXvgB dhbWVudCIsIGFyZSAyI GlycmVndWxhciBhbmQg vAGsHSWcYTVkp4O8LVG ha7W2URMbssNiiORbpQ ItlIWvm1InqI2yPJPvS ZXmzMY6RQQhZuA6ZBWz SaWyfDGktzMuE0xdXBz wlEElFKWCqFGgh0HxR5 trCW4mjFNbj7HzjYhow mVkIGFuZCBlbnRpcmVs tMNroXNgzZJ7IWZkvP9 nDRVhGVGwINB4YI4aiE UwBC1CKGMCYJWvboNZV fqmNZHtYNxHnd6ezgZa eTNgXIX0cY9fUDXvkkF goo3zUWFrnZapkQRcQZ 8LKA6conXzh8l9iXSNs 3NwaXRhbHMgTGFrZSBX CNT8HD3sHGneUKfeN6X dmBZeTHZzkaZPYsJ0UZ SgWAO3M6kmDXDModFvu DMsrKPtNH6TR1eoaG83 R6ifjVkvQ0lgrrW5QCB 2WDeoDOWtJCpuc4MxLX xlcGljWHNhMzAgDQpQa Z0vYGpnHQZ9MYbuKJIl LTYwMjUgIEZheDogKDQ 7HUzeVlRiKUX8OKZUAe ghzCacJvOiwLHtCvY4Y ZTnnDGbSFS7ZX3ezZfh LHRzH1UuZ8IdewI4VMD xhbGDWdxxZCPeED4ZHN LiNEgwON1DdE== [facility] Work Phone: Pathology report relevant history Narrative s4jucZZoKKIkr5dfJHO mbGFuZzEwMzNcZnRuYm m4NHRtwpA7Pgs7AMVrP AhcgE6wSKXvHAooR1qd maSapRDcP9Mix7OxSRj 4oJ3vdAlyeN1lLaLlZw TdIABBfvAky9WsQHfwK 47yn6esXtvcBYYnCSBh gQUmTWTvD2JoeRWdsEj hUW5ynsQzi8odAOGtoW MaKNVNQg0RF0ZvFSfEX zbcVH7beTFiDG1= [facility] Work Phone: [facility] Work Phone: Basic metabolic 2000 panelon 03-07-2023 Anion gap [Moles/Vol] 7 mmol/L NINF - 19 mmol/L [facility] Calcium [Mass/Vol] 8.0 mg/dL Low 8.5 - 10.4 mg/dL [facility] Chloride [Moles/Vol] 111 mmol/L High 97 - 107 mmol/L [facility] CO2 [Moles/Vol] 21 mmol/L Low 24 - 31 mmol/L [facility] Creatinine [Mass/Vol] 0.70 mg/dL 0.40 - 1.60 mg/dL [facility] eGFR - PINF [facility] Comment on above: Calculations of jessica mated GFR are performed using the 2020 CKD-EPI Study Refit equation without the race variable for the IDMS-Traceable creatinine methods. https://jasn.asnjournals.org/content//ASN.[email or web address] 88 Glucose [Mass/Vol] 100 mg/dL High 65 - 99 mg/dL [facility] Interpretation and review of laboratory results Abnormal [facility] Potassium [Moles/Vol] 3.9 mmol/L 3.4 - 5.1 mmol/L [facility] Sodium [Moles/Vol] 139 mmol/L 133 - 145 mmol/L [facility] Urea nitrogen [Mass/Vol] 4 mg/dL Low 8 - 25 mg/dL [facility] Anion gap [Moles/Vol] 7 mmol/L Normal <=19 [facility] Comment on above: Performed By: #### 5 7021-8 #### MELISA Galvan ([id number]) [facility] () [address] [place] [address] Calcium [Mass/Vol] 8.0 mg/dL Low 8.5-10.4 [facility] Comment on above: Performed By: #### 5 7021-8 #### MELISA Galvan ([id number]) [facility] () [address] [place] [address] Chloride [Moles/Vol] 111 mmol/L High 97-107 [facility] Comment on above: Performed By: #### 5 7021-8 #### MELISA Galvan ([id number]) [facility] () [address] [place] [address] CO2 [Moles/Vol] 21 mmol/L Low 24-31 [facility] Comment on above: Performed By: #### 5 7021-8 #### MELISA Galvan ([id number]) [facility] () [address] [place] [address] Creatinine [Mass/Vol] 0.70 mg/dL Normal 0.40-1.60 [facility] Comment on above: Performed By: #### 5 7021-8 #### MELISA Galvan ([id number]) [facility] () [address] [place] [address] GFR/1.73 sq M.predicted MDRD (S/P/Bld) [Vol rate/Area] mL/min/{1.73_m2} Normal >60 [facility] Comment on above: Result Comment: Calc ulations of estimated GFR are performed using the 2020 CKD-EPI Study Refit equation without the race variable for the IDMS-Traceable creatinine methods. https://jasn.asnjournals.org/content//ASN.21573151 88 Performed By: #### 5 7021-8 #### MELISA Galvan ([id number]) [facility] () [address] [place] [address] Glucose [Mass/Vol] 100 mg/dL High 65-99 [facility] Comment on above: Performed By: #### 5 7021-8 #### MELISA Galvan ([id number]) [facility] () [address] [place] [address] Potassium [Moles/Vol] 3.9 mmol/L Normal 3.4-5.1 [facility] Comment on above: Performed By: #### 5 7021-8 #### MELISA Galvan ([id number]) [facility] () [address] [place] [address] Sodium [Moles/Vol] 139 mmol/L Normal 133-145 [facility] Comment on above: Performed By: #### 5 7021-8 #### MELISA Galvan (30519) [facility] () [address] [place] [address] Urea nitrogen [Mass/Vol] 4 mg/dL Low 8-25 [facility] Comment on above: Performed By: #### 5 7021-8 #### MELISA Galvan (71042) [facility] () [address] [place] [address] CBC panel Auto (Bld)on 03-07 Erythrocyte distribution width (RBC) [Ratio] 13.2 % 11.5 - 14.5 % [facility] Hematocrit (Bld) [Volume fraction] 33.3 % Low 36.0 - 46.0 % [facility] Hemoglobin (Bld) [Mass/Vol] 11.0 g/dL Low 12.0 - 16.0 g/dL [facility] Interpretation and review of laboratory results Abnormal [facility] MCH (RBC) [Entitic mass] 31.3 pg 26.0 - 34.0 pg [facility] MCHC (RBC) [Mass/Vol] 33.0 g/dL 32.0 - 36.0 g/dL [facility] MCV (RBC) [Entitic vol] 95 fL 80 - 100 fL [facility] Nucleated RBC/100 WBC (Bld) [Ratio] 0.0 % [facility] Platelets (Bld) [#/Vol] 155 10*3/uL [facility] RBC (Bld) [#/Vol] 3.51 10*6/uL Low [facility] WBC (Bld) [#/Vol] 5.1 10*3/uL [facility] Erythrocyte distribution width (RBC) [Ratio] 13.2 % Normal 11.5-14.5 [facility] Comment on above: Performed By: #### 5 7021-8 #### MELISA Galvan ([id number]) [facility] () [address] [place] [address] Hematocrit (Bld) [Volume fraction] 33.3 % Low 36.0-46.0 [facility] Comment on above: Performed By: #### 5 7021-8 #### MELISA Galvan ([id number]) [facility] () [address] [place] [address] Hemoglobin (Bld) [Mass/Vol] 11.0 g/dL Low 12.0-16.0 [facility] Comment on above: Performed By: #### 5 7021-8 #### MELISA Galvan (69823) [facility] () [address] [place] [address] MCH (RBC) [Entitic mass] 31.3 pg Normal 26.0-34.0 [facility] Comment on above: Performed By: #### 5 7021-8 #### MELISA Galvan ([id number]) [facility] () [address] [place] [address] MCHC (RBC) [Mass/Vol] 33.0 g/dL Normal 32.0-36.0 [facility] Comment on above: Performed By: #### 5 7021-8 #### MELISA Galvan (57590) [facility] () [address] [place] [address] MCV (RBC) [Entitic vol] 95 fL Normal 80-100 [facility] Comment on above: Performed By: #### 5 7021-8 #### MELSIA Galvan ([id number]) [facility] () [address] [place] [address] Nucleated RBC/100 WBC (Bld) [Ratio] 0.0 /100 WBCs Normal 0.0-0.0 [facility] Comment on above: Performed By: #### 5 7021-8 #### MELISA Galvan (00690) [facility] () [address] [place] [address] Platelets (Bld) [#/Vol] 155 x10*3/uL Normal 150-450 [facility] Comment on above: Performed By: #### 5 7021-8 #### MELISA Galvan (43484) [facility] () [address] [place] [address] RBC (Bld) [#/Vol] 3.51 x10*6/uL Low 4.00-5.20 [facility] Comment on above: Performed By: #### 5 7021-8 #### MELISA Galvan ([id number]) [facility] () [address] [place] [address] WBC (Bld) [#/Vol] 5.1 x10*3/uL Normal 4.4-11.3 [facility] Comment on above: Performed By: #### 5 7021-8 #### MELISA Galvan (14475) [facility] () [address] [place] [address] Glucose Test strip manual (B ld) [Mass/Vol]on 03-07-2023 Glucose [Mass/Vol] 125 mg/dL High 74 - 99 mg/dL [facility] Interpretation and review of laboratory results Abnormal [facility] Glucose [Mass/Vol] 125 mg/dL High 74-99 [facility] Comment on above: Performed By: #### 2 4323-8 #### MELISA Galvan ([id number]) [facility] () [address] [place] [address] Glucose [Mass/Vol] 117 mg/dL High 74 - 99 mg/dL [facility] Interpretation and review of laboratory results Abnormal [facility] Glucose [Mass/Vol] 117 mg/dL High 74-99 [facility] Comment on above: Performed By: #### 2 4323-8 #### MELISA Galvan ([id number]) [facility] () [address] [place] [address] Glucose [Mass/Vol] 98 mg/dL 74 - 99 mg/dL [facility] Interpretation and review of laboratory results Normal [facility] Glucose [Mass/Vol] 98 mg/dL Normal 74-99 [facility] Comment on above: Performed By: #### 2 4323-8 #### MELISA Galvan ([id number]) [facility] () [address] [place] [address] Glucose [Mass/Vol] 98 mg/dL 74 - 99 mg/dL [facility] Interpretation and review of laboratory results Normal [facility] Glucose [Mass/Vol] 98 mg/dL Normal 74-99 [facility] Comment on above: Performed By: #### 2 4323-8 #### MELISA Galvan (64833) [facility] () [address] [place] [address] Glucose [Mass/Vol] 108 mg/dL High 74 - 99 mg/dL [facility] Interpretation and review of laboratory results Abnormal [facility] Glucose [Mass/Vol] 108 mg/dL High 74-99 [facility] Comment on above: Performed By: #### 5 7021-8 #### MELISA Galvan ([id number]) [facility] ([facility]) [address] [place] [address] Glucose [Mass/Vol] 119 mg/dL High 74 - 99 mg/dL [facility] Interpretation and review of laboratory results Abnormal [facility] Basic metabolic 2000 panelon 03-06-2023 Anion gap [Moles/Vol] 7 mmol/L NINF - 19 mmol/L [facility] Calcium [Mass/Vol] 8.1 mg/dL Low 8.5 - 10.4 mg/dL [facility] Chloride [Moles/Vol] 109 mmol/L High 97 - 107 mmol/L [facility] CO2 [Moles/Vol] 21 mmol/L Low 24 - 31 mmol/L [facility] Creatinine [Mass/Vol] 0.70 mg/dL 0.40 - 1.60 mg/dL [facility] eGFR - PINF [facility] Comment on above: Calculations of jessica mated GFR are performed using the 2020 CKD-EPI Study Refit equation without the race variable for the IDMS-Traceable creatinine methods. https://jasn.asnjournals.org/content//ASN.66533519 88 Glucose [Mass/Vol] 149 mg/dL High 65 - 99 mg/dL [facility] Interpretation and review of laboratory results Abnormal [facility] Potassium [Moles/Vol] 3.7 mmol/L 3.4 - 5.1 mmol/L [facility] Sodium [Moles/Vol] 137 mmol/L 133 - 145 mmol/L [facility] Urea nitrogen [Mass/Vol] 5 mg/dL Low 8 - 25 mg/dL [facility] Anion gap [Moles/Vol] 7 mmol/L Normal <=19 [facility] Comment on above: Performed By: #### 5 7021-8 #### MELISA Galvan ([id number]) [facility] () [address] [place] [address] Calcium [Mass/Vol] 8.1 mg/dL Low 8.5-10.4 [facility] Comment on above: Performed By: #### 5 7021-8 #### MELISA Galvan (86238) [facility] () [address] [place] [address] Chloride [Moles/Vol] 109 mmol/L High 97-107 [facility] Comment on above: Performed By: #### 5 7021-8 #### MELISA Galvan ([id number]) [facility] () [address] [place] [address] CO2 [Moles/Vol] 21 mmol/L Low 24-31 [facility] Comment on above: Performed By: #### 5 7021-8 #### MELISA Galvan (54427) [facility] () [address] [place] [address] Creatinine [Mass/Vol] 0.70 mg/dL Normal 0.40-1.60 [facility] Comment on above: Performed By: #### 5 7021-8 #### MELISA Galvan ([id number]) [facility] () [address] [place] [address] GFR/1.73 sq M.predicted MDRD (S/P/Bld) [Vol rate/Area] mL/min/{1.73_m2} Normal >60 [facility] Comment on above: Result Comment: Calc ulations of estimated GFR are performed using the 2020 CKD-EPI Study Refit equation without the race variable for the IDMS-Traceable creatinine methods. https://jasn.asnjournals.org/content/early/ASN.39823031 88 Performed By: #### 5 7021-8 #### MELISA Galvan ([id number]) [facility] () [address] [place] [address] Glucose [Mass/Vol] 149 mg/dL High 65-99 [facility] Comment on above: Performed By: #### 5 7021-8 #### MELISA Galvan ([id number]) [facility] () [address] [place] [address] Potassium [Moles/Vol] 3.7 mmol/L Normal 3.4-5.1 [facility] Comment on above: Performed By: #### 5 7021-8 #### MELISA Galvan ([id number]) [facility] () [address] [place] [address] Sodium [Moles/Vol] 137 mmol/L Normal 133-145 [facility] Comment on above: Performed By: #### 5 7021-8 #### MELISA Galvan (18705) [facility] () [address] [place] [address] Urea nitrogen [Mass/Vol] 5 mg/dL Low 8-25 [facility] Comment on above: Performed By: #### 5 7021-8 #### MELISA Galvan (85882) [facility] () [address] [place] [address] CBC panel Auto (Bld)on 03-06 Erythrocyte distribution width (RBC) [Ratio] 12.9 % 11.5 - 14.5 % [facility] Hematocrit (Bld) [Volume fraction] 35.1 % Low 36.0 - 46.0 % [facility] Hemoglobin (Bld) [Mass/Vol] 11.8 g/dL Low 12.0 - 16.0 g/dL [facility] Interpretation and review of laboratory results Abnormal [facility] MCH (RBC) [Entitic mass] 30.8 pg 26.0 - 34.0 pg [facility] MCHC (RBC) [Mass/Vol] 33.6 g/dL 32.0 - 36.0 g/dL [facility] MCV (RBC) [Entitic vol] 92 fL 80 - 100 fL [facility] Nucleated RBC/100 WBC (Bld) [Ratio] 0.0 % [facility] Platelets (Bld) [#/Vol] 179 10*3/uL [facility] RBC (Bld) [#/Vol] 3.83 10*6/uL Low [facility] WBC (Bld) [#/Vol] 5.5 10*3/uL [facility] Erythrocyte distribution width (RBC) [Ratio] 12.9 % Normal 11.5-14.5 [facility] Comment on above: Performed By: #### 2 4356-8 #### MELISA Galvan (35686) [facility] () [address] [place] [address] Hematocrit (Bld) [Volume fraction] 35.1 % Low 36.0-46.0 [facility] Comment on above: Performed By: #### 2 4356-8 #### MELISA Galvan (65508) [facility] () [address] [place] [address] Hemoglobin (Bld) [Mass/Vol] 11.8 g/dL Low 12.0-16.0 [facility] Comment on above: Performed By: #### 2 4356-8 #### MELISA Galvan (25440) [facility] () [address] [place] [address] MCH (RBC) [Entitic mass] 30.8 pg Normal 26.0-34.0 [facility] Comment on above: Performed By: #### 2 4356-8 #### MELISA Galvan (78356) [facility] () [address] [place] [address] MCHC (RBC) [Mass/Vol] 33.6 g/dL Normal 32.0-36.0 [facility] Comment on above: Performed By: #### 2 4356-8 #### MELISA Galvan (00122) [facility] () [address] [place] [address] MCV (RBC) [Entitic vol] 92 fL Normal 80-100 [facility] Comment on above: Performed By: #### 2 4356-8 #### MELISA Galvan (07029) [facility] () [address] [place] [address] Nucleated RBC/100 WBC (Bld) [Ratio] 0.0 /100 WBCs Normal 0.0-0.0 [facility] Comment on above: Performed By: #### 2 4356-8 #### MELISA Galvan (70601) [facility] () [address] [place] [address] Platelets (Bld) [#/Vol] 179 x10*3/uL Normal 150-450 [facility] Comment on above: Performed By: #### 2 4356-8 #### MELISA Galvan (65393) [facility] () [address] [place] [address] RBC (Bld) [#/Vol] 3.83 x10*6/uL Low 4.00-5.20 [facility] Comment on above: Performed By: #### 2 4356-8 #### MELISA Galvan (39053) [facility] () [address] [place] [address] WBC (Bld) [#/Vol] 5.5 x10*3/uL Normal 4.4-11.3 [facility] Comment on above: Performed By: #### 2 4356-8 #### MELISA Galvan (74119) [facility] () [address] [place] [address] Glucose Test strip manual (B ld) [Mass/Vol]on 03-06-2023 Glucose [Mass/Vol] 119 mg/dL High 74-99 [facility] Comment on above: Performed By: #### 5 7021-8 #### MELISA Galvan (50202) [facility] () [address] [place] [address] Glucose [Mass/Vol] 103 mg/dL High 74 - 99 mg/dL [facility] Interpretation and review of laboratory results Abnormal [facility] Glucose [Mass/Vol] 103 mg/dL High 74-99 [facility] Comment on above: Performed By: #### 5 7021-8 #### MELISA Galvan (35025) [facility] () [address] [place] [address] Glucose [Mass/Vol] 119 mg/dL High 74 - 99 mg/dL [facility] Interpretation and review of laboratory results Abnormal [facility] Glucose [Mass/Vol] 119 mg/dL High 74-99 [facility] Comment on above: Performed By: #### 5 7021-8 #### MELISA Galvan (81258) [facility] () [address] [place] [address] Glucose [Mass/Vol] 108 mg/dL High 74 - 99 mg/dL [facility] Interpretation and review of laboratory results Abnormal [facility] Glucose [Mass/Vol] 108 mg/dL High 74-99 [facility] Comment on above: Performed By: #### 5 7021-8 #### MELISA Galvan (20754) [facility] () [address] [place] [address] Glucose [Mass/Vol] 113 mg/dL High 74 - 99 mg/dL [facility] Interpretation and review of laboratory results Abnormal [facility] Glucose [Mass/Vol] 113 mg/dL High 74-99 [facility] Comment on above: Performed By: #### 5 7021-8 #### MELISA Galvan (55192) [facility] () [address] [place] [address] Glucose [Mass/Vol] 152 mg/dL High 74 - 99 mg/dL [facility] Interpretation and review of laboratory results Abnormal [facility] Glucose [Mass/Vol] 152 mg/dL High 74-99 [facility] Comment on above: Performed By: #### 2 4356-8 #### MELISA Galvan (57880) [facility] () [address] [place] [address] Magnesiumon 03-06-2023 Magnesium [Mass/Vol] 1.70 mg/dL 1.60 - 3.10 mg/dL [facility] Magnesium [Mass/Vol] 1.70 mg/dL Normal 1.60-3.10 [facility] Comment on above: Performed By: #### 2 4356-8 #### MELISA Galvan (02074) [facility] () [address] [place] [address] No Panel Informationon 03-06 Interpretation and review of laboratory results Normal [facility] Phosphateon 03-06-2023 Phosphate [Mass/Vol] 3.0 mg/dL Normal 2.5-4.5 [facility] Comment on above: Performed By: #### 2 4356-8 #### MELISA Galvan (11408) [facility] () [address] [place] [address] Phosphoruson 03-06-2023 Phosphate [Mass/Vol] 3.0 mg/dL 2.5 - 4.5 mg/dL [facility] XR CHEST 1 VIEWon 03-06-2023 XR CHEST 1 VIEW Interpreted By: Sara Zarate, STUDY: XR CHEST 1 VIEW; 03/06/2023 7:32 am INDICATION: Signs/Symptoms:post op COMPARISON: None ACCESSION NUMBER(S): [id number] ORDERING CLINICIAN: JASON FOSTER TECHNIQUE: Frontal and [...] Sara Zarate 03/06/2023 1:48 PM Dictation workstation: [id number] [facility] XR Chest Single viewon 03-06 Appliance positioning as noted above. No consolidation. Signed by: Sara Zarate 03/06/2023 1:48 PM Dictation workstation: [id number] Interpreted By: Sara Zarate, STUDY: XR CHEST 1 VIEW; 03/06/2023 7:32 am INDICATION: Signs/Symptoms:post op COMPARISON: None ACCESSION NUMBER(S): [id number] ORDERING CLINICIAN: JASON FOSTER TECHNIQUE: Frontal and [...] INDICATION: Signs/Symptoms:post op COMPARISON: None ACCESSION NUMBER(S): [id number] ORDERING CLINICIAN: JASON FOSTER TECHNIQUE: Frontal and [...] Sara Zarate 03/06/2023 1:48 PM Dictation workstation: [id number] [facility] Work Phone: Radiology Study observation (narrative) [facility] Work Phone: XR Chest Single viewOrdered By: Sara Zarate on 03-06-2023 [facility] Work Phone: Basic metabolic 2000 panelon 03-05-2023 Anion gap [Moles/Vol] 13 mmol/L NINF - 19 mmol/L [facility] Calcium [Mass/Vol] 8.0 mg/dL Low 8.5 - 10.4 mg/dL [facility] Chloride [Moles/Vol] 107 mmol/L 97 - 107 mmol/L [facility] CO2 [Moles/Vol] 18 mmol/L Low 24 - 31 mmol/L [facility] Creatinine [Mass/Vol] 0.70 mg/dL 0.40 - 1.60 mg/dL [facility] eGFR - PINF [facility] Comment on above: Calculations of jessica mated GFR are performed using the 2020 CKD-EPI Study Refit equation without the race variable for the IDMS-Traceable creatinine methods. https://jasn.asnjournals.org/content/early//ASN.82932788 88 Glucose [Mass/Vol] 107 mg/dL High 65 - 99 mg/dL [facility] Interpretation and review of laboratory results Abnormal [facility] Potassium [Moles/Vol] 3.6 mmol/L 3.4 - 5.1 mmol/L [facility] Sodium [Moles/Vol] 138 mmol/L 133 - 145 mmol/L [facility] Urea nitrogen [Mass/Vol] 10 mg/dL 8 - 25 mg/dL [facility] Anion gap [Moles/Vol] 13 mmol/L Normal <=19 [facility] Comment on above: Performed By: #### 2 4356-8 #### MELISA Galvan (00605) [facility] () [address] [place] [address] Calcium [Mass/Vol] 8.0 mg/dL Low 8.5-10.4 [facility] Comment on above: Performed By: #### 2 4356-8 #### MELISA Galvan (90163) [facility] () [address] [place] [address] Chloride [Moles/Vol] 107 mmol/L Normal 97-107 [facility] Comment on above: Performed By: #### 2 4356-8 #### MELISA Galvan (82772) [facility] () [address] [place] [address] CO2 [Moles/Vol] 18 mmol/L Low 24-31 [facility] Comment on above: Performed By: #### 2 4356-8 #### MELISA Galvan (36850) [facility] () [address] [place] [address] Creatinine [Mass/Vol] 0.70 mg/dL Normal 0.40-1.60 [facility] Comment on above: Performed By: #### 2 4356-8 #### MELISA Galvan (57863) [facility] () [address] [place] [address] GFR/1.73 sq M.predicted MDRD (S/P/Bld) [Vol rate/Area] mL/min/{1.73_m2} Normal >60 [facility] Comment on above: Result Comment: Calc ulations of estimated GFR are performed using the 2020 CKD-EPI Study Refit equation without the race variable for the IDMS-Traceable creatinine methods. https://jasn.asnjournals.org/content//ASN.97003481 88 Performed By: #### 2 4356-8 #### MELISA Galvan (66990) [facility] () [address] [place] [address] Glucose [Mass/Vol] 107 mg/dL High 65-99 [facility] Comment on above: Performed By: #### 2 4356-8 #### MELISA Galvan (34319) [facility] () [address] [place] [address] Potassium [Moles/Vol] 3.6 mmol/L Normal 3.4-5.1 [facility] Comment on above: Performed By: #### 2 4356-8 #### MELISA Galvan (86014) [facility] () [address] [place] [address] Sodium [Moles/Vol] 138 mmol/L Normal 133-145 [facility] Comment on above: Performed By: #### 2 4356-8 #### MELISA Galvan (89704) [facility] () [address] [place] [address] Urea nitrogen [Mass/Vol] 10 mg/dL Normal 8-25 [facility] Comment on above: Performed By: #### 2 4356-8 #### MELISA Galvan (20073) [facility] () [address] [place] [address] CBC panel Auto (Bld)on 03-05 Erythrocyte distribution width (RBC) [Ratio] 12.6 % 11.5 - 14.5 % [facility] Hematocrit (Bld) [Volume fraction] 34.8 % Low 36.0 - 46.0 % [facility] Hemoglobin (Bld) [Mass/Vol] 11.9 g/dL Low 12.0 - 16.0 g/dL [facility] Interpretation and review of laboratory results Abnormal [facility] MCH (RBC) [Entitic mass] 31.2 pg 26.0 - 34.0 pg [facility] MCHC (RBC) [Mass/Vol] 34.2 g/dL 32.0 - 36.0 g/dL [facility] MCV (RBC) [Entitic vol] 91 fL 80 - 100 fL [facility] Nucleated RBC/100 WBC (Bld) [Ratio] 0.0 % [facility] Platelets (Bld) [#/Vol] 182 10*3/uL [facility] RBC (Bld) [#/Vol] 3.82 10*6/uL Low [facility] WBC (Bld) [#/Vol] 8.4 10*3/uL [facility] Erythrocyte distribution width (RBC) [Ratio] 12.6 % Normal 11.5-14.5 [facility] Comment on above: Performed By: #### 5 8410-2 #### MELISA Galvan (38315) [facility] () [address] [place] [address] Hematocrit (Bld) [Volume fraction] 34.8 % Low 36.0-46.0 [facility] Comment on above: Performed By: #### 5 8410-2 #### MELISA Galvan ([id number]) [facility] () [address] [place] [address] Hemoglobin (Bld) [Mass/Vol] 11.9 g/dL Low 12.0-16.0 [facility] Comment on above: Performed By: #### 5 8410-2 #### MELISA Galvan ([id number]) [facility] () [address] [place] [address] MCH (RBC) [Entitic mass] 31.2 pg Normal 26.0-34.0 [facility] Comment on above: Performed By: #### 5 8410-2 #### MELISA Galvan ([id number]) [facility] () [address] [place] [address] MCHC (RBC) [Mass/Vol] 34.2 g/dL Normal 32.0-36.0 [facility] Comment on above: Performed By: #### 5 8410-2 #### MELISA Galvan ([id number]) [facility] () [address] [place] [address] MCV (RBC) [Entitic vol] 91 fL Normal 80-100 [facility] Comment on above: Performed By: #### 5 8410-2 #### MELISA Galvan ([id number]) [facility] () [address] [place] [address] Nucleated RBC/100 WBC (Bld) [Ratio] 0.0 /100 WBCs Normal 0.0-0.0 [facility] Comment on above: Performed By: #### 5 8410-2 #### MELISA Galvan ([id number]) [facility] () [address] [place] [address] Platelets (Bld) [#/Vol] 182 x10*3/uL Normal 150-450 [facility] Comment on above: Performed By: #### 5 8410-2 #### MELISA Galvan ([id number]) [facility] () [address] [place] [address] RBC (Bld) [#/Vol] 3.82 x10*6/uL Low 4.00-5.20 [facility] Comment on above: Performed By: #### 5 8410-2 #### MELISA Galvan ([id number]) [facility] () [address] [place] [address] WBC (Bld) [#/Vol] 8.4 x10*3/uL Normal 4.4-11.3 [facility] Comment on above: Performed By: #### 5 8410-2 #### MELISA Galvan ([id number]) [facility] () [address] [place] [address] Glucose Test strip manual (B ld) [Mass/Vol]on 03-05-2023 Glucose [Mass/Vol] 176 mg/dL High 74 - 99 mg/dL [facility] Interpretation and review of laboratory results Abnormal [facility] Glucose [Mass/Vol] 176 mg/dL High 74-99 [facility] Comment on above: Performed By: #### 2 4356-8 #### MELISA Galvan ([id number]) [facility] () [address] [place] [address] Glucose [Mass/Vol] 177 mg/dL High 74 - 99 mg/dL [facility] Interpretation and review of laboratory results Abnormal [facility] Glucose [Mass/Vol] 177 mg/dL High 74-99 [facility] Comment on above: Performed By: #### 2 4356-8 #### MELISA Galvan ([id number]) [facility] () [address] [place] [address] Glucose [Mass/Vol] 111 mg/dL High 74 - 99 mg/dL [facility] Interpretation and review of laboratory results Abnormal [facility] Glucose [Mass/Vol] 111 mg/dL High 74-99 [facility] Comment on above: Performed By: #### 2 4356-8 #### MELISA Galvan ([id number]) [facility] () [address] [place] [address] Magnesiumon 03-05-2023 Magnesium [Mass/Vol] 1.70 mg/dL 1.60 - 3.10 mg/dL [facility] Magnesium [Mass/Vol] 1.70 mg/dL Normal 1.60-3.10 [facility] Comment on above: Performed By: #### 2 4356-8 #### MELISA Galvan ([id number]) [facility] () [address] [place] [address] No Panel Informationon 03-05 Interpretation and review of laboratory results Normal [facility] Phosphateon 03-05-2023 Phosphate [Mass/Vol] 4.3 mg/dL Normal 2.5-4.5 [facility] Comment on above: Performed By: #### 2 4356-8 #### MELISA Galvan ([id number]) [facility] () [address] [place] [address] Phosphoruson 03-05-2023 Phosphate [Mass/Vol] 4.3 mg/dL 2.5 - 4.5 mg/dL [facility] Surgical pathology studyon 0 03-05-2023 Surgical pathology study Pathology report.total SEE COMMENT Surgical Pathology Case: [id number] Authorizing Provider: Sherry Magaña MD Collected: 03/05/2023 1125 Ordering Location: [facility] Received: 03/05/2023 1314 Center OR Pathologist: Melisa [...] sectioned and entirely submitted in 1 cassette. 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] VERAB/VERIFY ABORHon 024 ABO group Nom (Bld) O Normal [facility] Comment on above: Performed By: #### V ERAB #### MELISA Galvan ([id number]) [facility] ([facility]) [address] [place] [address] US D Ag Ql (Bld) Positive [facility] Comment on above: Performed By: #### V ERAB #### MELISA Galvan ([id number]) [facility] ([facility]) [address] [place] [address] XR CHEST 1 VIEWon 03-05-2023 XR CHEST 1 VIEW Interpreted By: Baldomero Hendrickson, STUDY: XR CHEST 1 VIEW; 03/05/2023 3:11 pm INDICATION: CLINICAL INFORMATION: Signs/Symptoms:NG tube placement confirmation. COMPARISON: 03/05/2019 at 745 hours ACCESSION NUMBER(S): [id number] ORDERING CLINICIAN: DESMOND TIRADO TECHNIQUE: Portable chest [...] Baldomero Hendrickson 03/05/2023 3:31 PM Dictation workstation: [id number] [facility] XR CHEST 1 VIEW Interpreted By: Nya Ahmadi, STUDY: XR CHEST 1 VIEW 03/05/2023 7:51 am INDICATION: Signs/Symptoms:conf irm line placement COMPARISON: None available. ACCESSION NUMBER(S): [id number] ORDERING CLINICIAN: SERENA GEORGE TECHNIQUE: AP erect view of the chest FINDINGS: Right arm PICC line terminates in the SVC. There is no pneumothorax. The heart, mediastinum, and lungs are normally visualized. IMPRESSION: Right arm PICC line terminating in SVC without pneumothorax. No acute cardiopulmonary disease. Signed by: Nya Ahmadi 03/05/2023 7:54 AM Dictation workstation: [id number] [facility] XR Chest Single viewon 03-05 1. Status post NG tube insertion with the tube extending into the left upper quadrant. 2. Stable appearance of the PICC line. 3. No infiltrates are identified. MACRO: none Signed by: Baldomero Hendrickson 03/05/2023 3:31 PM Dictation workstation: [id number] MMODAL Interpreted By: Baldomero Hendrickson, STUDY: XR CHEST 1 VIEW; 03/05/2023 3:11 pm INDICATION: CLINICAL INFORMATION: Signs/Symptoms:NG tube placement confirmation. COMPARISON: 03/05/2019 at 745 hours ACCESSION NUMBER(S): [id number] ORDERING CLINICIAN: DESMOND TIRADO TECHNIQUE: Portable chest [...] COMPARISON: 03/05/2019 at 745 hours ACCESSION NUMBER(S): [id number] ORDERING CLINICIAN: DESMOND TIRADO TECHNIQUE: Portable chest [...] Baldomero Hendrickson 03/05/2023 3:31 PM Dictation workstation: [id number] [facility] Work Phone: Radiology Study observation (narrative) [facility] Work Phone: Right arm PICC line terminating in SVC without pneumothorax. No acute cardiopulmonary disease. Signed by: Nya Ahmadi 03/05/2023 7:54 AM Dictation workstation: [id number] Interpreted By: Nya Ahmadi, STUDY: XR CHEST 1 VIEW 03/05/2023 7:51 am INDICATION: Signs/Symptoms:conf irm line placement COMPARISON: None available. ACCESSION NUMBER(S): [id number] ORDERING CLINICIAN: SERENA GEORGE TECHNIQUE: AP erect view of the chest FINDINGS: Right arm PICC line terminates in the SVC. There is no pneumothorax. The heart, mediastinum, and lungs are normally visualized. [facility] MM[facility] Nya Ahmadi MD - 03/05/2023 Interpreted By: Nya Ahmadi, STUDY: XR CHEST 1 VIEW 03/05/2023 7:51 am INDICATION: Signs/Symptoms:conf irm line placement COMPARISON: None available. ACCESSION NUMBER(S): [id number] ORDERING CLINICIAN: SERENA GEORGE TECHNIQUE: AP erect view of the chest FINDINGS: Right arm PICC line terminates in the SVC. There is no pneumothorax. The heart, mediastinum, and lungs are normally visualized. IMPRESSION: Right arm PICC line terminating in SVC without pneumothorax. No acute cardiopulmonary disease. Signed by: Nya Ahmadi 03/05/2023 7:54 AM Dictation workstation: [id number] [facility] Work Phone: Radiology Study observation (narrative) [facility] Work Phone: XR Chest Single viewOrdered By: Baldomero Hendrickson on 03-05-2023 [facility] Work Phone: XR Chest Single viewOrdered By: Nya Ahmadi on 03-05-2023 [facility] Work Phone: Basic metabolic 2000 panelon 03-02-2023 Anion gap [Moles/Vol] 14 mmol/L Normal <=19 [facility] Comment on above: Performed By: #### 2 4321-2 #### MELISA Galvan ([id number]) [facility] () [address] [place] [address] Calcium [Mass/Vol] 9.0 mg/dL Normal 8.5-10.4 [facility] Comment on above: Performed By: #### 2 4321-2 #### MELISA Galvan ([id number]) [facility] () [address] [place] [address] Chloride [Moles/Vol] 107 mmol/L Normal 97-107 [facility] Comment on above: Performed By: #### 2 4321-2 #### MELISA Galvan ([id number]) [facility] () [address] [place] [address] CO2 [Moles/Vol] 21 mmol/L Low 24-31 [facility] Comment on above: Performed By: #### 2 4321-2 #### MELISA Galvan ([id number]) [facility] () [address] [place] [address] Creatinine [Mass/Vol] 0.80 mg/dL Normal 0.40-1.60 [facility] Comment on above: Performed By: #### 2 4321-2 #### MELISA Galvan ([id number]) [facility] () [address] [place] [address] GFR/1.73 sq M.predicted MDRD (S/P/Bld) [Vol rate/Area] mL/min/{1.73_m2} Normal >60 [facility] Comment on above: Result Comment: Calc ulations of estimated GFR are performed using the 2020 CKD-EPI Study Refit equation without the race variable for the IDMS-Traceable creatinine methods. https://jasn.asnjournals.org/content/early//ASN.55750885 88 Performed By: #### 2 4321-2 #### MELISA Galvan ([id number]) [facility] () [address] [place] [address] Glucose [Mass/Vol] 68 mg/dL Normal 65-99 [facility] Comment on above: Performed By: #### 2 4321-2 #### MELISA Galvan ([id number]) [facility] () [address] [place] [address] Potassium [Moles/Vol] 4.0 mmol/L Normal 3.4-5.1 [facility] Comment on above: Performed By: #### 2 4321-2 #### MELISA Galvan ([id number]) [facility] () [address] [place] [address] Sodium [Moles/Vol] 142 mmol/L Normal 133-145 [facility] Comment on above: Performed By: #### 2 4321-2 #### MELISA Galvan ([id number]) [facility] () [address] [place] [address] Urea nitrogen [Mass/Vol] 8 mg/dL Normal 8-25 [facility] Comment on above: Performed By: #### 2 4321-2 #### MELISA Galvan ([id number]) [facility] () [address] [place] [address] Blood type and Indirect anti body screen panel (Bld)on 03-02-2023 ABO group Nom (Bld) O [facility] Comment on above: Performed By: #### 3 4532-2 #### MELISA Galvan ([id number]) [facility] ([facility]) [address] [place] [address] Blood group antibody screen Ql Negative [facility] Comment on above: Performed By: #### 3 4532-2 #### MELISA Galvan ([id number]) [facility] ([facility]) [id number] [place] [address] US D Ag Ql (Bld) Positive [facility] Comment on above: Performed By: #### 3 4532-2 #### MELISA Galvan ([id number]) [facility] ([facility]) [address] [place] [address] Staphylococcus aureus.methic illin resistant isolateon 03-02-2023 MRSA isol Org specific cx Ql (Nose) Test: Staphylococcus aureus/MRSA colonization, Culture Specimen Source: Anterior Nares Specimen Type: Swab Specimen Date: 03/02/2023 3:17 PM Result Date: 03/04/2023 7:55 AM Result Status: Final result Abnormal: No Resulting Lab: [facility] [address] [place] [address] CULTURE No Staphylococcus aureus isolated [facility] Comment on above: Performed By: #### 5 2969-3 #### ALON Johnson ([id number]) [facility] ([facility]) [address] [place] [address] Alanine aminotransferase [En zymatic activity/volume] in Serum or PlasmaOrdered By: Roseline Mejia on 02-13-2023 ALT [Catalytic activity/Vol] 11 U/L Normal [facility] Comment on above: Performed By: #### H EPATIC, MG, LIPASE, CMP, CBC #### [facility] [address] Albumin [Mass/volume] in Ser um or Plasma by Bromocresol green (BCG) dye binding methoOrdered By: Roseline Mejia on 02-13-2023 Albumin BCG dye [Mass/Vol] 4.0 g/dL 3.5-5.7 [facility] Alkaline phosphatase [Enzyma tic activity/volume] in Serum or PlasmaOrdered By: Roseline Mejia on 02-13-2023 ALP [Catalytic activity/Vol] 55 U/L Normal 34-104 [facility] Comment on above: Performed By: #### H EPATIC, MG, LIPASE, CMP, CBC #### [address] Aspartate aminotransferase [ Enzymatic activity/volume] in Serum or PlasmaOrdered By: Roseline Mejia on 02-13-2023 AST [Catalytic activity/Vol] 20 U/L Normal 13-39 [facility] Comment on above: Performed By: #### H EPATIC, MG, LIPASE, CMP, CBC #### [address] Automated basophil %Ordered By: Roseline Mejia on 02-13-2023 Basophils/100 WBC (Bld) 1.2 % Normal . [facility] Comment on above: Performed By: #### H EPATIC, MG, LIPASE, CMP, CBC #### [address] Automated basophil countOrde red By: Roseline Mejia on 02-13-2023 Basophils (Bld) [#/Vol] 0.1 10*3/uL Normal 0.0-0.2 [facility] Comment on above: Result Comment: PERF ORMED BY: [place] [address] PATHOLOGIST CAKE DECORATOR BAUTISTA BAKER M.D. Performed By: #### H EPATIC, MG, LIPASE, CMP, CBC #### [address] Automated blood monocyte cou ntOrdered By: Roseline Mejia on 02-13-2023 Monocytes (Bld) [#/Vol] 0.3 10*3/uL Normal 0.0-0.8 [facility] Comment on above: Performed By: #### H EPATIC, MG, LIPASE, CMP, CBC #### [address] Automated eosinophil %Ordere d By: Roseline Mejia on 02-13-2023 Eosinophils/100 WBC (Bld) 1.7 % Normal . [facility] Comment on above: Performed By: #### H EPATIC, MG, LIPASE, CMP, CBC #### [address] Automated eosinophil countOr dered By: Roseline Mejia on 02-13-2023 Eosinophils (Bld) [#/Vol] 0.1 10*3/uL Normal 0.0-0.45 [facility] Comment on above: Performed By: #### H EPATIC, MG, LIPASE, CMP, CBC #### [address] Automated monocyte %Ordered By: Roseline Mejia on 02-13-2023 Monocytes/100 WBC (Bld) 7.3 % Normal . [facility] Comment on above: Performed By: #### H EPATIC, MG, LIPASE, CMP, CBC #### [address] Automated neutrophil %Ordere d By: Roseline Mejia on 02-13-2023 Neutrophils/100 WBC (Bld) 49.0 % Normal . [facility] Comment on above: Performed By: #### H EPATIC, MG, LIPASE, CMP, CBC #### [address] Automated urine color determ inationOrdered By: Roseline Mejia on 02-13-2023 Color (U) Yellow Normal Yellow [facility] Comment on above: Order Comment: Name Collection Type:: Clean-Voided Midstream Performed By: #### A DDONUAPLUS, UHCG, CUU #### [address] Basic Metabolic Panelon 01-17 Creatinine Clr Calc Pharmacy 119.02 Normal [facility] Comment on above: Performed By: #### H EPATIC, MG, LIPASE, CMP, CBC #### [facility] [address] [place] [address] GFR/1.73 sq M.predicted MDRD (S/P/Bld) [Vol rate/Area] mL/min/{1.73_m2} Normal [facility] Comment on above: Performed By: #### H EPATIC, MG, LIPASE, CMP, CBC #### [address] Bilirubin Test strip Ql (U)O rdered By: Roseline Mejia on 02-13-2023 Bilirubin Ql (U) Negative Negative [facility] Bilirubin.direct [Mass/volum e] in Serum or PlasmaOrdered By: Roseline Mejia on 02-13-2023 Bilirubin.direct [Mass/Vol] 0.10 mg/dL 0.03-0.18 [facility] Bilirubin.total [Mass/volume ] in Serum or PlasmaOrdered By: Roseline Mejia on 02-13-2023 Bilirubin [Mass/Vol] 0.5 mg/dL Normal 0.3-1.0 [facility] Comment on above: Performed By: #### H EPATIC, MG, LIPASE, CMP, CBC #### [facility] [address] [place] [address] CT abdomen pelvis w conon CT abdomen pelvis w con [facility] [place] [address] [place] [address] CT Scan Report Signed Patient: Abbey Garcia MR#: [id number] : 1990 Acct:[id number] Age/Sex: 32 / F ADM Date: 02/13/23 Loc: ER Room: Type: [facility] ER Attending Dr: Copies to: DO Roseline [...] Jason Palomo M.D.02/13/2023 3:42 PM Dictation Location: [place] [address] Transcribed By: [facility] 02/13/23 1542 Dictated By: Jason Palomo DO 02/13/23 1537 Signed By: 02/13/23 1542 Normal [facility] Calcium [Mass/volume] in Ser um or PlasmaOrdered By: Roseline Mejia on 02-13-2023 Calcium [Mass/Vol] 8.8 mg/dL Normal 8.6-10.3 [facility] Comment on above: Performed By: #### H EPATIC, MG, LIPASE, CMP, CBC #### [facility] [address] [place] [address] Carbon dioxide, total [Moles /volume] in Serum or PlasmaOrdered By: Roseline Mejia on 02-13-2023 CO2 [Moles/Vol] 21.2 mmol/L Normal 21.0-31.0 [facility] Comment on above: Performed By: #### H EPATIC, MG, LIPASE, CMP, CBC #### [address] Chloride [Moles/volume] in S elder or PlasmaOrdered By: Roseline Mjeia on 02-13-2023 Chloride [Moles/Vol] 109 mmol/L High 98-107 [facility] Comment on above: Performed By: #### H EPATIC, MG, LIPASE, CMP, CBC #### [address] Complete Blood Count Auto Di ffon 02-13-2023 Mean Corpuscular HGB Conc 34.9 g/dL Normal 32.0-35.0 [facility] Comment on above: Performed By: #### H EPATIC, MG, LIPASE, CMP, CBC #### [address] Monocytes/100 WBC (Bld) 17.39 % Normal 0.00-20.00 [facility] Comment on above: Performed By: #### H EPATIC, MG, LIPASE, CMP, CBC #### [address] NRBC% 0.2 /100{WBC} Normal 0-0.5 [facility] Comment on above: Performed By: #### H EPATIC, MG, LIPASE, CMP, CBC #### [address] Creatinine [Mass/volume] in Serum or PlasmaOrdered By: Roseline Mejia on 02-13-2023 Creatinine [Mass/Vol] 0.73 mg/dL Normal 0.60-1.20 [facility] Comment on above: Performed By: #### H EPATIC, MG, LIPASE, CMP, CBC #### [address] Erythrocyte distribution wid th [Ratio] by Automated countOrdered By: Roseline Mejia on 02-13-2023 Erythrocyte distribution width (RBC) [Ratio] 13.0 % Normal 11.9-15.3 [facility] Comment on above: Performed By: #### H EPATIC, MG, LIPASE, CMP, CBC #### [facility] [address] Erythrocytes [#/volume] in B lood by Automated countOrdered By: Roseline Mejia on 02-13-2023 RBC (Bld) [#/Vol] 4.07 10*6/uL Normal 3.60-5.00 [facility] Comment on above: Performed By: #### H EPATIC, MG, LIPASE, CMP, CBC #### [facility] [address] [place] [address] Glucose [Mass/volume] in Ser um or PlasmaOrdered By: Roseline Mejia on 02-13-2023 Glucose [Mass/Vol] 85 mg/dL Normal 70-100 [facility] Comment on above: ADA recommended refe rence rangeRandom Glucose Reference Range is dependent on time and content of last meal. Glucose of more than 200 mg/dL in a nonstressed, ambulatory subject supports the diagnosis of Diabetes Mellitus. Result Comment: [place] om Glucose Reference Range is dependent on time and content of last meal. Glucose of more than 200 mg/dL in a nonstressed, ambulatory subject supports the diagnosis of Diabetes Mellitus. ADA recommended reference range Performed By: #### H EPATIC, MG, LIPASE, CMP, CBC #### [address] HCG ( test) IA.rapi d Ql (U)Ordered By: Roseline Mejia on 02-13-2023 HCG ( test) Ql (U) Negative [facility] HCG,Urineon 02-13-2023 Beta HCG ( test) Ql (U) Negative Normal [facility] Comment on above: Order Comment: Name Collection Type:: Clean-Voided Midstream Result Comment: PERF ORMED BY: [place] [address] PATHOLOGIST CAKE DECORATOR BAUTISTA BAKER M.D. Performed By: #### A DDONUAPLUS, UHCG, CUU #### [address] Hematocrit [Volume Fraction] of Blood by Automated countOrdered By: Roseline Mejia on 02-13-2023 Hematocrit (Bld) [Volume fraction] 36.3 % Normal 34.0-46.4 [facility] Comment on above: Performed By: #### H EPATIC, MG, LIPASE, CMP, CBC #### [address] Hemoglobin [Mass/volume] in BloodOrdered By: Roseline Mejia on 02-13-2023 Hemoglobin (Bld) [Mass/Vol] 12.7 g/dL Normal 11.8-15.4 [facility] Comment on above: Performed By: #### H EPATIC, MG, LIPASE, CMP, CBC #### [address] Hepatic Panelon 02-13-2023 Albumin [Mass/Vol] 4.0 g/dL Normal 3.5-5.7 [facility] Comment on above: Performed By: #### H EPATIC, MG, LIPASE, CMP, CBC #### [address] Bilirubin,Indirect 0.4 mg/dL Normal [facility] Comment on above: Performed By: #### H EPATIC, MG, LIPASE, CMP, CBC #### [address] Bilirubin.indirect [Mass/Vol] 0.10 mg/dL Normal 0.03-0.18 [facility] Comment on above: Performed By: #### H EPATIC, MG, LIPASE, CMP, CBC #### [address] Ketones Auto test strip (U) [Mass/Vol]Ordered By: Roseline Mejia on 02-13-2023 Ketones (U) [Mass/Vol] Trace Negative [facility] Leukocytes [#/volume] correc darvin for nucleated erythrocytes in Blood by Automated counOrdered By: Roseline Mejia on 02-13-2023 WBC corrected for nucl RBC Auto (Bld) [#/Vol] 4.2 10*3/uL 3.8-11.6 [facility] Leukocytes [#/volume] in Blo od by Automated countOrdered By: Roseline Mejia on 02-13-2023 WBC (Bld) [#/Vol] 4.2 10*3/uL Normal 3.8-11.6 [facility] Comment on above: Performed By: #### H EPATIC, MG, LIPASE, CMP, CBC #### [address] Lipase [Enzymatic activity/v olume] in Serum or PlasmaOrdered By: Roseline Mejia on 02-13-2023 Lipase [Catalytic activity/Vol] 42.0 U/L Normal 11.0-82.0 [facility] Comment on above: Result Comment: PERF ORMED BY: [place] [address] PATHOLOGIST CAKE DECORATOR BAUTISTA BAKER M.D. Performed By: #### H EPATIC, MG, LIPASE, CMP, CBC #### [place] [address] [place] Lymphocytes [#/volume] in Bl ood by Automated countOrdered By: Roseline Mejia on 02-13-2023 Lymphocytes (Bld) [#/Vol] 1.7 10*3/uL Normal 1.00-4.8 [facility] Comment on above: Performed By: #### H EPATIC, MG, LIPASE, CMP, CBC #### [place] [address] [place] Lymphocytes/100 leukocytes i n Blood by Automated countOrdered By: Roseline Mejia on 02-13-2023 Lymphocytes/100 WBC (Bld) 40.8 % Normal . [facility] Comment on above: Performed By: #### H EPATIC, MG, LIPASE, CMP, CBC #### [place] [address] [place] MCH [Entitic mass] by Automa darvin countOrdered By: Roseline Mejia on 02-13-2023 MCH (RBC) [Entitic mass] 31.1 pg Normal 24.7-34.3 [facility] Comment on above: Performed By: #### H EPATIC, MG, LIPASE, CMP, CBC #### [facility] [facility] [address] [place] [address] MCHC Auto (RBC) [Mass/Vol]Or dered By: Roseline Mejia on 02-13-2023 MCHC (RBC) [Mass/Vol] 34.9 g/dL 32.0-35.0 [facility] MCV [Entitic volume] by Auto mated countOrdered By: Roseline Mejia on 02-13-2023 MCV (RBC) [Entitic vol] 89.2 fL Normal 80-100 [facility] Comment on above: Performed By: #### H EPATIC, MG, LIPASE, CMP, CBC #### [facility] [address] [place] [address] Monocyte distribution width [Entitic volume] in Blood by AutomatedOrdered By: Roseline Mejia on 02-13-2023 Monocyte distribution width Auto (Bld) [Entitic vol] 17.39 % 0.00-20.00 [facility] Neutrophils [#/volume] in Bl ood by Automated countOrdered By: Roseline Mejia on 02-13-2023 Neutrophils (Bld) [#/Vol] 2.0 10*3/uL Normal 1.8-7.7 [facility] Comment on above: Performed By: #### H EPATIC, MG, LIPASE, CMP, CBC #### [facility] [address] [place] [address] Nitrite Test strip Ql (U)Ord ered By: Roseline Mejia on 02-13-2023 Nitrite Ql (U) Negative Negative [facility] No Panel InformationOrdered By: Roseline Mejia on 02-13-2023 Estimated GFR (CKD-EPI) > 60.0 mL/Min [facility] Creatinine Clearance (Chem 119.02 [facility] Nucleated erythrocytes [Pres ence] in Blood by Automated countOrdered By: Roseline Mejia on 02-13-2023 Nucleated RBC Auto Ql (Bld) 0.2 /100{WBC} 0-0.5 [facility] Platelet mean volume [Entiti c volume] in Blood by Automated countOrdered By: Roseline Mejia on 02-13-2023 Platelet mean volume (Bld) [Entitic vol] 8.8 fL Normal 6.3-10.7 [facility] Comment on above: Performed By: #### H EPATIC, MG, LIPASE, CMP, CBC #### [address] Platelets [#/volume] in Bloo d by Automated countOrdered By: Roseline Mejia on 02-13-2023 Platelets (Bld) [#/Vol] 288 10*3/uL Normal 150-450 [facility] Comment on above: Performed By: #### H EPATIC, MG, LIPASE, CMP, CBC #### [address] Potassium [Moles/volume] in Serum or PlasmaOrdered By: Roseline Mejia on 02-13-2023 Potassium [Moles/Vol] 3.7 mmol/L Normal 3.5-5.1 [facility] Comment on above: Performed By: #### H EPATIC, MG, LIPASE, CMP, CBC #### [address] Protein Auto test strip (U) [Mass/Vol]Ordered By: Roseline Mejia on 02-13-2023 Protein (U) [Mass/Vol] Negative Negative [facility] Protein [Mass/volume] in Ser um or PlasmaOrdered By: Roseline Mejia on 02-13-2023 Protein [Mass/Vol] 6.9 g/dL Normal 6.4-8.9 [facility] Comment on above: Performed By: #### H EPATIC, MG, LIPASE, CMP, CBC #### [address] Serum globulin measurement b y calculation (mass/volume)Ordered By: Roseline Mejia on 02-13-2023 Globulin (S) [Mass/Vol] 2.9 g/dL Normal [facility] Comment on above: Performed By: #### H EPATIC, MG, LIPASE, CMP, CBC #### [address] Serum or plasma albumin/glob ulin mass ratioOrdered By: Roseline Mejia on 02-13-2023 Albumin/Globulin [Mass ratio] 1.4 {ratio} Normal [facility] Comment on above: Performed By: #### H EPATIC, MG, LIPASE, CMP, CBC #### [address] Serum or plasma anion gap de terminationOrdered By: Roseline Mejia on 02-13-2023 Anion gap [Moles/Vol] 10.5 mmol/L Normal 6.0-15.0 [facility] Comment on above: Performed By: #### H EPATIC, MG, LIPASE, CMP, CBC #### [address] Serum or plasma non-glucuron idated bilirubin measurement (mass/volume)Ordered By: Roseline Mejia on 02-13-2023 Bilirubin.indirect [Mass/Vol] 0.4 mg/dL [facility] Sodium [Moles/volume] in Ser um or PlasmaOrdered By: Roseline Mejia on 02-13-2023 Sodium [Moles/Vol] 137 mmol/L Normal 136-145 [facility] Comment on above: Performed By: #### H EPATIC, MG, LIPASE, CMP, CBC #### [address] Specific gravity Auto test s trip (U) [Rel density]Ordered By: Roseline Mejia on 02-13-2023 Specific gravity (U) [Rel density] 1.017 1.001-1.030 [facility] Urea nitrogen [Mass/volume] in Serum or PlasmaOrdered By: Roseline Mejia on 02-13-2023 Urea nitrogen [Mass/Vol] 10 mg/dL Normal 7-25 [facility] Comment on above: Performed By: #### H EPATIC, MG, LIPASE, CMP, CBC #### [address] Urinalysison 02-13-2023 Appearance (U) Clear Normal Clear [facility] Comment on above: Order Comment: Name Collection Type:: Clean-Voided Midstream Performed By: #### A DDONUAPLUS, UHCG, CUU #### [address] Bilirubin,Urine Negative Normal Negative [facility] Comment on above: Order Comment: Name Collection Type:: Clean-Voided Midstream Performed By: #### A DDONUAPLUS, UHCG, CUU #### [address] Glucose Ql (U) Normal Normal Normal [facility] Comment on above: Order Comment: Name Collection Type:: Clean-Voided Midstream Performed By: #### A DDONUAPLUS, UHCG, CUU #### [address] Ketones Ql (U) Trace High Negative [facility] Comment on above: Order Comment: Name Collection Type:: Clean-Voided Midstream Performed By: #### A DDONUAPLUS, UHCG, CUU #### [address] Leukocyte esterase Test strip Ql (U) Negative Normal Negative [facility] Comment on above: Order Comment: Name Collection Type:: Clean-Voided Midstream Performed By: #### A DDONUAPLUS, UHCG, CUU #### [place] [address] [place] Nitrite,Urine Negative Normal Negative [facility] Comment on above: Order Comment: Name Collection Type:: Clean-Voided Midstream Performed By: #### A DDONUAPLUS, UHCG, CUU #### [address] Occult Blood,Urine Negative Normal Negative [facility] Comment on above: Order Comment: Name Collection Type:: Clean-Voided Midstream Performed By: #### A DDONUAPLUS, UHCG, CUU #### [facility] [address] [place] [address] [place] Protein,Urine Negative Normal Negative [facility] Comment on above: Order Comment: Name Collection Type:: Clean-Voided Midstream Performed By: #### A DDONUAPLUS, UHCG, CUU #### [facility] [address] Specificy [place],Urine 1.017 Normal 1.001-1.030 [facility] Comment on above: Order Comment: Name Collection Type:: Clean-Voided Midstream Performed By: #### A DDONUAPLUS, UHCG, CUU #### [address] Urobilinogen,Urine Normal Normal Normal [facility] Comment on above: Order Comment: Name Collection Type:: Clean-Voided Midstream Performed By: #### A DDONUAPLUS, UHCG, CUU #### [address] Urine clarity by refractomet ry automatedOrdered By: Roseline Mejia on 02-13-2023 Clarity Refractometry automated (U) Clear Clear [facility] Urine glucose measurement by automated test strip (mass/volume)Ordered By: Roseline Mejia on 02-13-2023 Glucose Auto test strip (U) [Mass/Vol] Normal mg/dL Normal [facility] Urine hemoglobin detection b y automated test stripOrdered By: Roseline Mejia on 02-13-2023 Hemoglobin Auto test strip Ql (U) Negative Negative [facility] Urine leukocyte esterase det ection by automated test stripOrdered By: Roseline Mejia on 02-13-2023 Leukocyte esterase Auto test strip Ql (U) Negative Negative [facility] Urine pH measurement by auto mated test stripOrdered By: Roseline Mejia on 02-13-2023 pH (U) 5.5 [pH] Normal 5.0-9.0 [facility] Comment on above: Order Comment: Name Collection Type:: Clean-Voided Midstream Performed By: #### A DDONUAPLUS, CG, CUU #### [facility] [address] Urobilinogen Auto test strip (U) [Mass/Vol]Ordered By: Roseline Mejia on 02-13-2023 Urobilinogen (U) [Mass/Vol] Normal mg/dL Normal [facility] CBC W Auto Differential pane l (Bld)on 02-12-2023 Basophils (Bld) [#/Vol] 0.02 x10*3/uL Normal 0.00-0.10 [facility] Comment on above: Performed By: #### 5 7021-8 #### OUMAR BRICEÑO ([id number]) [facility] ([facility]) [address] [place] [address] Basophils/100 WBC (Bld) 0.5 % Normal 0.0-2.0 [facility] Comment on above: Performed By: #### 5 7021-8 #### OUMAR BRICEÑO ([id number]) [facility] ([facility]) [address] [place] [address] Eosinophils (Bld) [#/Vol] 0.06 x10*3/uL Normal 0.00-0.70 [facility] Comment on above: Performed By: #### 5 7021-8 #### OUMAR BRICEÑO ([id number]) [facility] ([facility]) [address] [place] [address] Eosinophils/100 WBC (Bld) 1.4 % Normal 0.0-6.0 [facility] Comment on above: Performed By: #### 5 7021-8 #### OUMAR BRICEÑO ([id number]) [facility] ([facility]) [address] [place] [address] Erythrocyte distribution width (RBC) [Ratio] 12.1 % Normal 11.5-14.5 [facility] Comment on above: Performed By: #### 5 7021-8 #### OUMAR BRICEÑO ([id number]) [facility] ([facility]) [address] [place] [address] Hematocrit (Bld) [Volume fraction] 37.9 % Normal 36.0-46.0 [facility] Comment on above: Performed By: #### 5 7021-8 #### OUMAR BRICEÑO ([id number]) [facility] ([facility]) [address] [place] [address] Hemoglobin (Bld) [Mass/Vol] 12.8 g/dL Normal 12.0-16.0 [facility] Comment on above: Performed By: #### 5 7021-8 #### OUMAR BRICEÑO ([id number]) [facility] ([facility]) [id number] [place] [address] Immature granulocytes (Bld) [#/Vol] 0.01 x10*3/uL Normal 0.00-0.70 [facility] Comment on above: Performed By: #### 5 7021-8 #### OUMAR BRICEÑO ([id number]) [facility] ([facility]) [id number] [place] [address] Immature granulocytes/100 WBC (Bld) 0.2 % Normal 0.0-0.9 [facility] Comment on above: Result Comment: Janny ture Granulocyte Count (IG) includes promyelocytes, myelocytes and metamyelocytes but does not include bands. Percent differential counts (%) should be interpreted in the context of the absolute cell counts (cells/UL). Performed By: #### 5 7021-8 #### OUMAR BRICEÑO ([id number]) [facility] ([facility]) [address] [place] [address] Lymphocytes (Bld) [#/Vol] 1.63 x10*3/uL Normal 1.20-4.80 [facility] Comment on above: Performed By: #### 5 7021-8 #### OUMAR BRICEÑO ([id number]) [facility] ([facility]) [address] [place] [address] Lymphocytes/100 WBC (Bld) 38.9 % Normal 13.0-44.0 [facility] Comment on above: Performed By: #### 5 7021-8 #### OUMAR BRICEÑO ([id number]) [facility] ([facility]) [address] [place] [address] MCH (RBC) [Entitic mass] 30.5 pg Normal 26.0-34.0 [facility] Comment on above: Performed By: #### 5 7021-8 #### OUMAR BRICEÑO ([id number]) [facility] ([facility]) [address] [place] [address] MCHC (RBC) [Mass/Vol] 33.8 g/dL Normal 32.0-36.0 [facility] Comment on above: Performed By: #### 5 7021-8 #### OUMAR BRICEÑO ([id number]) [facility] ([facility]) [address] [place] [address] MCV (RBC) [Entitic vol] 91 fL Normal 80-100 [facility] Comment on above: Performed By: #### 5 7021-8 #### OUMAR BRICEÑO ([id number]) [facility] ([facility]) [address] [place] [address] Monocytes (Bld) [#/Vol] 0.26 x10*3/uL Normal 0.10-1.00 [facility] Comment on above: Performed By: #### 5 7021-8 #### OUMAR BRICEÑO ([id number]) [facility] ([facility]) [address] [place] [address] Monocytes/100 WBC (Bld) 6.2 % Normal 2.0-10.0 [facility] Comment on above: Performed By: #### 5 7021-8 #### OUMAR BRICEÑO ([id number]) [facility] ([facility]) [address] [place] [address] Neutrophils (Bld) [#/Vol] 2.21 x10*3/uL Normal 1.20-7.70 [facility] Comment on above: Result Comment: Perc ent differential counts (%) should be interpreted in the context of the absolute cell counts (cells/uL). Performed By: #### 5 7021-8 #### OUMAR BRICEÑO ([id number]) [facility] ([facility]) [address] [place] [address] Neutrophils/100 WBC (Bld) 52.8 % Normal 40.0-80.0 [facility] Comment on above: Performed By: #### 5 7021-8 #### OUMAR BRICEÑO ([id number]) [facility] ([facility]) [address] [place] [address] Nucleated RBC/100 WBC (Bld) [Ratio] 0.0 /100 WBCs Normal 0.0-0.0 [facility] Comment on above: Performed By: #### 5 7021-8 #### UOMAR BRICEÑO ([id number]) [facility] ([facility]) [address] [place] [address] Platelets (Bld) [#/Vol] 291 x10*3/uL Normal 150-450 [facility] Comment on above: Performed By: #### 5 7021-8 #### OUMAR BRICEÑO ([id number]) [facility] ([facility]) [address] [place] [address] RBC (Bld) [#/Vol] 4.19 x10*6/uL Normal 4.00-5.20 [facility] Comment on above: Performed By: #### 5 7021-8 #### OUMAR BRICEÑO ([id number]) [facility] ([facility]) [address] [place] [address] WBC (Bld) [#/Vol] 4.2 x10*3/uL Low 4.4-11.3 [facility] Comment on above: Performed By: #### 5 7021-8 #### OUMAR BRICEÑO ([id number]) [facility] ([facility]) [address] [place] [address] Comprehensive metabolic 2000 panelon 02-12-2023 Albumin BCP dye [Mass/Vol] 4.2 g/dL Normal 3.4-5.0 [facility] Comment on above: Performed By: #### 2 4323-8 #### OUMAR BRICEÑO ([id number]) [facility] ([facility]) [address] [place] [address] ALP [Catalytic activity/Vol] 55 U/L Normal 33-110 [facility] Comment on above: Performed By: #### 2 4323-8 #### OUMAR BRICEÑO ([id number]) [facility] ([facility]) [address] [place] [address] ALT With P-5'-P [Catalytic activity/Vol] 13 U/L Normal 7-45 [facility] Comment on above: Result Comment: Umm ents treated with Sulfasalazine may generate falsely decreased results for ALT. Performed By: #### 2 4323-8 #### OUMAR BRICEÑO ([id number]) [facility] ([facility]) [address] [place] [address] Anion gap [Moles/Vol] 13 mmol/L Normal 10-20 [facility] Comment on above: Performed By: #### 2 4323-8 #### OUMAR BRICEÑO ([id number]) [facility] ([facility]) [address] [place] [address] AST With P-5'-P [Catalytic activity/Vol] 21 U/L Normal 9-39 [facility] Comment on above: Performed By: #### 2 4323-8 #### OUMAR BRICEÑO ([id number]) [facility] ([facility]) [address] [place] [address] Bilirubin [Mass/Vol] 0.5 mg/dL Normal 0.0-1.2 [facility] Comment on above: Performed By: #### 2 4323-8 #### OUMAR BRICEÑO ([id number]) [facility] ([facility]) [address] [place] [address] Calcium [Mass/Vol] 8.9 mg/dL Normal 8.6-10.3 [facility] Comment on above: Performed By: #### 2 4323-8 #### OUMAR BRICEÑO ([id number]) [facility] ([facility]) [address] [place] [address] Chloride [Moles/Vol] 107 mmol/L Normal 98-107 [facility] Comment on above: Performed By: #### 2 4323-8 #### OUMAR BRICEÑO ([id number]) [facility] ([facility]) [address] [place] [address] CO2 [Moles/Vol] 23 mmol/L Normal 21-32 [facility] Comment on above: Performed By: #### 2 4323-8 #### OUMAR BRICEÑO ([id number]) [facility] ([facility]) [address] [place] [address] Creatinine [Mass/Vol] 0.73 mg/dL Normal 0.50-1.05 [facility] Comment on above: Performed By: #### 2 4323-8 #### OUMAR BRICEÑO ([id number]) [facility] ([facility]) [address] [place] [address] GFR/1.73 sq M.predicted MDRD (S/P/Bld) [Vol rate/Area] mL/min/{1.73_m2} Normal >60 [facility] Comment on above: Result Comment: Calc ulations of estimated GFR are performed using the 2020 CKD-EPI Study Refit equation without the race variable for the IDMS-Traceable creatinine methods. https://jasn.asnjournals.org/content/early//ASN.21578112 88 Performed By: #### 2 4323-8 #### OUMAR BRICEÑO ([id number]) [facility] ([facility]) [address] [place] [address] Glucose [Mass/Vol] 84 mg/dL Normal 74-99 [facility] Comment on above: Performed By: #### 2 4323-8 #### OUMAR BRICEÑO ([id number]) [facility] ([facility]) [address] [place] [address] Potassium [Moles/Vol] 3.6 mmol/L Normal 3.5-5.3 [facility] Comment on above: Performed By: #### 2 4323-8 #### OUMAR BRICEÑO ([id number]) [facility] ([facility]) [address] [place] [address] Protein [Mass/Vol] 7.0 g/dL Normal 6.4-8.2 [facility] Comment on above: Performed By: #### 2 4323-8 #### OUMAR BRICEÑO ([id number]) [facility] ([facility]) [address] [place] [address] Sodium [Moles/Vol] 139 mmol/L Normal 136-145 [facility] Comment on above: Performed By: #### 2 4323-8 #### OUMAR BRICEÑO ([id number]) [facility] ([facility]) [address] [place] [address] Urea nitrogen [Mass/Vol] 9 mg/dL Normal 6-23 [facility] Comment on above: Performed By: #### 2 4323-8 #### OUMAR BRICEÑO ([id number]) [facility] ([facility]) [address] [place] [address] Lactateon 02-12-2023 Lactate [Moles/Vol] 0.6 mmol/L Normal 0.4-2.0 [facility] Comment on above: Order Comment: Venip uncture immediately after or during the administration of Metamizole may lead to falsely low results. Testing should be performed immediately prior to Metamizole dosing. Performed By: #### 2 524-7 #### OUMAR BRICEÑO ([id number]) [facility] ([facility]) [address] [place] [address] Triacylglycerol lipaseon Lipase [Catalytic activity/Vol] 43 U/L Normal [facility] Comment on above: Order Comment: Venip uncture immediately after or during the administration of Metamizole may lead to falsely low results. Testing should be performed immediately prior to Metamizole dosing. Performed By: #### 3 040-3 #### OUMAR BRICEÑO ([id number]) [facility] ([facility]) [address] [place] [address] Urinalysis complete panel (U )on 02-12-2023 Appearance (U) Clear Normal Clear [facility] Comment on above: Performed By: #### 2 4356-8 #### OUMAR BRICEÑO ([id number]) [facility] ([facility]) [address] [place] [address] Bilirubin (U) [Mass/Vol] Negative Normal NEGATIVE [facility] Comment on above: Performed By: #### 2 4356-8 #### OUMAR BRICEÑO ([id number]) [facility] ([facility]) [id number] [place] [address] Color (U) Yellow Normal Straw, Yellow [facility] Comment on above: Performed By: #### 2 4356-8 #### OUMAR BRICEÑO ([id number]) [facility] ([facility]) [address] [place] [address] Glucose Auto test strip (U) [Mass/Vol] Negative Normal NEGATIVE [facility] Comment on above: Performed By: #### 2 4356-8 #### OUMAR BRICEÑO ([id number]) [facility] ([facility]) [address] [place] [address] Ketones (U) [Mass/Vol] Negative Normal NEGATIVE [facility] Comment on above: Performed By: #### 2 4356-8 #### OUMAR BRICEÑO ([id number]) [facility] ([facility]) [address] [place] [address] Leukocyte esterase Auto test strip Ql (U) Negative Normal NEGATIVE [facility] Comment on above: Performed By: #### 2 6-8 #### OUMAR BRICEÑO ([id number]) [facility] ([facility]) [address] [place] [address] Nitrite Auto test strip Ql (U) Negative Normal NEGATIVE [facility] [place] Comment on above: Performed By: #### 2 4355-8 #### OUMAR BRICEÑO ([id number]) [facility] ([facility]) [address] [place] [address] 62439 pH (U) 6.0 [pH] Normal 5.0, 5.5, 6.0, 6.5, 7.0, 7.5, 8.0 [facility] [place] Comment on above: Performed By: #### 2 4355-8 #### OUMAR BRICEÑO (54953) [facility] ([facility]) [address] [place] [address] 37491 Protein (U) [Mass/Vol] Negative Normal NEGATIVE [facility] [place] Comment on above: Performed By: #### 2 4355-8 #### OUMAR BRICEÑO ([id number]) [facility] ([facility]) [address] [place] [address] 52711 RBC (U) [#/Vol] Negative Normal NEGATIVE [facility] Comment on above: Performed By: #### 2 4355-8 #### OUMAR BRICEÑO ([id number]) [facility] ([facility]) [address] [place] [address] 16387 Specific gravity (U) [Rel density] 1.021 Normal 1.005-1.035 [facility] [place] Comment on above: Performed By: #### 2 6-8 #### OUMAR BRICEÑO ([id number]) [facility] ([facility]) [address] [place] [address] 85555 Urobilinogen (U) [Mass/Vol] mg/dL Normal <2.0 [facility] [place] Comment on above: Performed By: #### 2 435-8 #### OUMAR BRICEÑO ([id number]) [facility] ([facility]) [address] 02-11-2023 CNPN Normal [facility] HISTORY PHYSICALon HISTORY PHYSICAL HNO ID: [id number] Author: Vic Ramos MD Service: Pain Management [...] DATE: February 10, 2023 TIME: 2:00 PM [facility] HISTORY PHYSICAL HNO ID: [id number] Author: Anam Carter APRN.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 Service: General Internal Medicine Author Type: Nurse Practitioner Type: HANDP Filed: 02/10/2023 2:04 PM Note Text: Abbey Garcia returns to [facility] for the treatment [...] syndrome Plan: Block celiac plexus Anam Carter APRN.[facility] OPERATIVE NOon 02-10-2023 OPERATIVE NO HNO ID: [id number] Author: Vic Ramos MD Service: Pain Management Author Type: Anesthesiologist Type: Operative Report Filed: 02/10/2023 2:41 PM Note Text: [facility] Pre-Procedure Note Patient Name: Abbey Garcia SUBJECTIVE: Abbey Garcia is a 32 year old female who presents to [facility]. This is her 1st. Patient denies any contraindications to the procedure including . 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 OBJECTIVE: BP [...] Vic Ramos MD February 10, 2023 [facility] Post-Procedure Note Patient [...] February 10, 2023 day of surgery Normal [facility] Family Medicine Office/Clini c Noteon 02-03-2023 Family Medicine Office/Clinic Note Normal [facility] Comment on above: Result Comment: Elec tronically Signed By: Cristhian REDDING, Jaquan Johnson\.br\Date and Time Signed: 02/03/23 15:18 EST CNPNon 01-15-2023 CNPN Normal [facility] VASC US MESENTERIC ARTERY DU PLEX COMPLETEon 01-14-2023 VASC US MESENTERIC [place] [address] Vascular Lab Report VASC US MESENTERIC ARTERY DUPLEX COMPLETE Patient Name: ABBEY PHIPPS Reading Physician: [id number] Boggs MD, RPVI Study Date: 01/14/2023 Ordering Provider: [id number] SHERRY MAGAÑA MRN/PID: [id number] Fellow: Technologist: Anam Mc RVMary Jane Date of /Age: 2 1990 / 32 years Technologist 2: Gender: F Admission Status: Outpatient Location Performed: [facility] 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 History of gastric bypass with [...] PSV 116 cm/s Splenic PSV 77 cm/s 11112 Jaquelin Boggs MD, DORA Final Normal [facility] CBC W Auto Differential pane l (Bld)on 01-13-2023 Basophils (Bld) [#/Vol] 0.04 x10*3/uL Normal 0.00-0.10 [facility] Comment on above: Performed By: #### 5 7021-8 #### MELISA Galvan (58460) [facility] () [address] [place] [address] Basophils/100 WBC (Bld) 0.7 % Normal 0.0-2.0 [facility] Comment on above: Performed By: #### 5 7021-8 #### MELISA Galvan (78291) [facility] () [address] [place] [address] Eosinophils (Bld) [#/Vol] 0.13 x10*3/uL Normal 0.00-0.70 [facility] Comment on above: Performed By: #### 5 7021-8 #### MELISA Galvan (57124) [facility] () [address] [place] [address] Eosinophils/100 WBC (Bld) 2.2 % Normal 0.0-6.0 [facility] Comment on above: Performed By: #### 5 7021-8 #### MELISA Galvan (10182) [facility] () [address] [place] [address] Erythrocyte distribution width (RBC) [Ratio] 12.4 % Normal 11.5-14.5 [facility] Comment on above: Performed By: #### 5 7021-8 #### MELISA Galvan (58650) [facility] () [address] [place] [address] Hematocrit (Bld) [Volume fraction] 36.6 % Normal 36.0-46.0 [facility] Comment on above: Performed By: #### 5 7021-8 #### MELISA Galvan (96175) [facility] () [address] [place] [address] Hemoglobin (Bld) [Mass/Vol] 12.6 g/dL Normal 12.0-16.0 [facility] Comment on above: Performed By: #### 5 7021-8 #### MELISA Galvan (73815) [facility] () [address] [place] [address] Immature granulocytes (Bld) [#/Vol] 0.01 x10*3/uL Normal 0.00-0.70 [facility] Comment on above: Performed By: #### 5 7021-8 #### MELISA Galvan (66831) [facility] () [address] [place] [address] Immature granulocytes/100 WBC (Bld) 0.2 % Normal 0.0-0.9 [facility] Comment on above: Result Comment: Janny ture Granulocyte Count (IG) includes promyelocytes, myelocytes and metamyelocytes but does not include bands. Percent differential counts (%) should be interpreted in the context of the absolute cell counts (cells/UL). Performed By: #### 5 7021-8 #### MELISA Galvan (82648) [facility] () [address] [place] [address] Lymphocytes (Bld) [#/Vol] 2.26 x10*3/uL Normal 1.20-4.80 [facility] Comment on above: Performed By: #### 5 7021-8 #### MELISA Galvan (61175) [facility] () [address] [place] [address] Lymphocytes/100 WBC (Bld) 39.0 % Normal 13.0-44.0 [facility] Comment on above: Performed By: #### 5 7021-8 #### MELISA Galvan (98814) [facility] () [address] [place] [address] MCH (RBC) [Entitic mass] 30.7 pg Normal 26.0-34.0 [facility] Comment on above: Performed By: #### 5 7021-8 #### MELISA Galvan (45603) [facility] () [address] [place] [address] MCHC (RBC) [Mass/Vol] 34.4 g/dL Normal 32.0-36.0 [facility] Comment on above: Performed By: #### 5 7021-8 #### MELISA Galvan (37341) [facility] () [address] [place] [address] MCV (RBC) [Entitic vol] 89 fL Normal 80-100 [facility] Comment on above: Performed By: #### 5 7021-8 #### MELISA Galvan (69290) [facility] () [address] [place] [address] Monocytes (Bld) [#/Vol] 0.41 x10*3/uL Normal 0.10-1.00 [facility] Comment on above: Performed By: #### 5 7021-8 #### MELISA Galvan (24211) [facility] () [address] [place] [address] Monocytes/100 WBC (Bld) 7.1 % Normal 2.0-10.0 [facility] Comment on above: Performed By: #### 5 7021-8 #### MELISA Galvan (98273) [facility] () [address] [place] [address] Neutrophils (Bld) [#/Vol] 2.95 x10*3/uL Normal 1.20-7.70 [facility] Comment on above: Result Comment: Perc ent differential counts (%) should be interpreted in the context of the absolute cell counts (cells/uL). Performed By: #### 5 7021-8 #### MELISA Galvan (99424) [facility] () [address] [place] [address] Neutrophils/100 WBC (Bld) 50.8 % Normal 40.0-80.0 [facility] Comment on above: Performed By: #### 5 7021-8 #### MELISA Galvan (97091) [facility] () [address] [place] [address] Nucleated RBC/100 WBC (Bld) [Ratio] 0.0 /100 WBCs Normal 0.0-0.0 [facility] Comment on above: Performed By: #### 5 7021-8 #### MELISA Galvan (60080) [facility] () [address] [place] [address] Platelets (Bld) [#/Vol] 222 x10*3/uL Normal 150-450 [facility] Comment on above: Performed By: #### 5 7021-8 #### MELISA Galvan (34842) [facility] () [address] [place] [address] RBC (Bld) [#/Vol] 4.11 x10*6/uL Normal 4.00-5.20 [facility] Comment on above: Performed By: #### 5 7021-8 #### MELISA Galvan (88292) [facility] () [address] [place] [address] WBC (Bld) [#/Vol] 5.8 x10*3/uL Normal 4.4-11.3 [facility] Comment on above: Performed By: #### 5 7021-8 #### MELISA Galvan (34960) [facility] () [address] [place] [address] Comprehensive metabolic 2000 panelon 01-13-2023 Albumin [Mass/Vol] 4.2 g/dL Normal 3.5-5.0 [facility] Comment on above: Performed By: #### 2 4323-8 #### MELISA Galvan (93367) [facility] () [address] [place] [address] ALP (Bld) [Catalytic activity/Vol] 74 U/L Normal 35-125 [facility] Comment on above: Performed By: #### 2 4323-8 #### MELISA Galvan (95369) [facility] () [address] [place] [address] ALT [Catalytic activity/Vol] 15 U/L Normal 5-40 [facility] Comment on above: Performed By: #### 2 4323-8 #### MELISA Galvan (08316) [facility] () [address] [place] [address] Anion gap [Moles/Vol] 10 mmol/L Normal <=19 [facility] Comment on above: Performed By: #### 2 4323-8 #### MELISA Galvan (99471) [facility] () [address] [place] [address] AST [Catalytic activity/Vol] 26 U/L Normal 5-40 [facility] Comment on above: Performed By: #### 2 4323-8 #### MELISA Galvan (49315) [facility] () [address] [place] [address] Bilirubin [Mass/Vol] 0.5 mg/dL Normal 0.1-1.2 [facility] Comment on above: Performed By: #### 2 4323-8 #### MELISA Galvan (40817) [facility] () [address] [place] [address] Calcium [Mass/Vol] 9.1 mg/dL Normal 8.5-10.4 [facility] Comment on above: Performed By: #### 2 4323-8 #### MELISA Galvan (59504) [facility] () [address] [place] [address] Chloride [Moles/Vol] 103 mmol/L Normal 97-107 [facility] Comment on above: Performed By: #### 2 4323-8 #### MELISA Galvan (79041) [facility] () [address] [place] [address] CO2 [Moles/Vol] 23 mmol/L Low 24-31 [facility] Comment on above: Performed By: #### 2 4323-8 #### MELISA Galvan (30526) [facility] () [address] [place] [address] Creatinine [Mass/Vol] 0.70 mg/dL Normal 0.40-1.60 [facility] Comment on above: Performed By: #### 2 4323-8 #### MELISA Galvan (21790) [facility] () [address] [place] [address] GFR/1.73 sq M.predicted MDRD (S/P/Bld) [Vol rate/Area] mL/min/{1.73_m2} Normal >60 [facility] Comment on above: Result Comment: Calc ulations of estimated GFR are performed using the 2020 CKD-EPI Study Refit equation without the race variable for the IDMS-Traceable creatinine methods. https://jasn.asnjournals.org/content/early//ASN.20312869 88 Performed By: #### 2 4323-8 #### MELISA Galvan (76829) [facility] () [address] [place] [address] Glucose [Mass/Vol] 89 mg/dL Normal 65-99 [facility] Comment on above: Performed By: #### 2 4323-8 #### MELISA Galvan (70459) [facility] () [address] [place] [address] Potassium [Moles/Vol] 3.5 mmol/L Normal 3.4-5.1 [facility] Comment on above: Performed By: #### 2 4323-8 #### MELISA Galvan (58843) [facility] () [address] [place] [address] Protein [Mass/Vol] 6.9 g/dL Normal 5.9-7.9 [facility] Comment on above: Performed By: #### 2 4323-8 #### MELISA Galvan (42902) [facility] () [address] [place] [address] Sodium [Moles/Vol] 136 mmol/L Normal 133-145 [facility] Comment on above: Performed By: #### 2 4323-8 #### MELISA Galvan () [facility] () [address] [place] [address] Urea nitrogen [Mass/Vol] 13 mg/dL Normal 8-25 [facility] Comment on above: Performed By: #### 2 4323-8 #### MELISA Galvan (66628) [facility] () [address] [place] [address] HCG ( test) IA.rapi d Ql (U)on 01-13-2023 HCG ( test) Ql (U) Negative Normal NEGATIVE [facility] Comment on above: Performed By: #### 8 0384-1 #### MELISA Galvan (15600) [facility] () [address] [place] [address] Urinalysis complete panel (U )on 01-13-2023 Appearance (U) Clear Normal Clear [facility] Comment on above: Performed By: #### 2 4356-8 #### MELISA Galvan (71725) [facility] () [address] [place] [address] Bilirubin (U) [Mass/Vol] Negative Normal NEGATIVE [facility] Comment on above: Performed By: #### 2 4356-8 #### MELISA Galvan (74335) [facility] () [address] [place] [address] Color (U) Light-Yellow Normal Light-Yellow, Yellow, Dark-Yellow [facility] Comment on above: Performed By: #### 2 4356-8 #### MELISA Galvan (43887) [facility] () [address] [place] [address] Glucose Auto test strip (U) [Mass/Vol] Normal Normal Normal [facility] Comment on above: Performed By: #### 2 4356-8 #### MELISA Galvan (39662) [facility] () [address] [place] [address] Ketones (U) [Mass/Vol] Negative Normal NEGATIVE [facility] Comment on above: Performed By: #### 2 4356-8 #### MELISA Galvan (67495) [facility] () [address] [place] [address] Leukocyte esterase Auto test strip Ql (U) Negative Normal NEGATIVE [facility] Comment on above: Performed By: #### 2 4356-8 #### MELISA Galvan (00904) [facility] () [address] [place] [address] Nitrite Auto test strip Ql (U) Negative Normal NEGATIVE [facility] Comment on above: Performed By: #### 2 4356-8 #### MELISA Galvan (74060) [facility] () [address] [place] [address] pH (U) 7.0 [pH] Normal 5.0, 5.5, 6.0, 6.5, 7.0, 7.5, 8.0 [facility] Comment on above: Performed By: #### 2 4356-8 #### MELISA Galvan (15489) [facility] () [address] [place] [address] Protein (U) [Mass/Vol] Negative Normal NEGATIVE, 10 (TRACE), 20 (TRACE) [facility] Comment on above: Performed By: #### 2 4356-8 #### MELISA Galvan (47001) [facility] () [address] [place] [address] RBC (U) [#/Vol] Negative Normal NEGATIVE [facility] Comment on above: Performed By: #### 2 4356-8 #### MELISA Galvan (14160) [facility] () [address] [place] [address] Specific gravity (U) [Rel density] 1.010 Normal 1.005-1.035 [facility] Comment on above: Performed By: #### 2 4356-8 #### MELISA Galvan (04529) [facility] () [address] [place] [address] Urobilinogen (U) [Mass/Vol] Normal Normal Normal [facility] Comment on above: Performed By: #### 2 4356-8 #### MELISA Galvan (79810) [facility] () [address] [place] [address] CNPNon 01-11-2023 CNPN Normal [facility] CNPNon 01-06-2023 CNPN Normal [facility] Auto Diffon 12-31-2022 Basophils/100 WBC (Bld) 0.6 % Normal 0.0-2.0 [facility] Comment on above: Order Comment: Order Added by Discern Expert. Performed By: #### 2 351827, 52690442, 0085230, 9519814, 39664807, 5694317, 5496358 ####[facility] [address] [place] [address] Basophils/Leukocyte s Auto (Bld) [Pure # fraction] 0.0 E9/L Normal 0.0-0.2 [facility] Comment on above: Order Comment: Order Added by Discern Expert. Performed By: #### 2 938095, 88478916, 6193273, 7461078, 21619796, 5901095, 3298816 ####[facility] [address] [place] [address] Eosinophils/100 WBC (Bld) 0.4 % Normal 0.0-8.0 [facility] Comment on above: Order Comment: Order Added by Discern Expert. Performed By: #### 2 569168, 19455951, 5215867, 9817326, 27098907, 0711485, 6909287 ####[address] [place] [address] Eosinophils/Leukocy stevan Auto (Bld) [Pure # fraction] 0.0 E9/L Normal 0.0-0.5 [facility] Comment on above: Order Comment: Order Added by Mariela Expert. Performed By: #### 2 713375, 21625481, 4235687, 2040903, 09077637, 5305475, 7534962 ####[address] [address] Lymphocytes/100 WBC (Bld) 42.3 % Normal 14.0-50.0 [facility] Comment on above: Order Comment: Order Added by Mariela Expert. Performed By: #### 2 958414, 72585369, 5898918, 2772344, 65319254, 0353490, 5849062 ####[address] [address] Lymphocytes/Leukocy stevan Auto (Bld) [Pure # fraction] 1.9 E9/L Normal 1.0-4.0 [facility] Comment on above: Order Comment: Order Added by Mariela Expert. Performed By: #### 2 597657, 84775377, 9813103, 4132606, 38136445, 6062283, 8609079 ####[address] [place] [address] Monocytes/100 WBC (Bld) 7.9 % Normal 4.0-14.0 [facility] Comment on above: Order Comment: Order Added by Discern Expert. Performed By: #### 2 655877, 64436876, 2023454, 8621385, 20915635, 9198495, 4695623 ####[address] [place] [address] Monocytes/Leukocyte s Auto (Bld) [Pure # fraction] 0.4 E9/L Normal 0.2-1.0 [facility] Comment on above: Order Comment: Order Added by Discern Expert. Performed By: #### 2 630011, 57363287, 3676176, 4936021, 81673034, 2872215, 0603386 ####[address] [place] [address] Neutrophils/100 WBC (Bld) 48.8 % Normal 36.0-75.0 [facility] Comment on above: Order Comment: Order Added by Mariela Expert. Performed By: #### 2 573446, 70110411, 2837487, 5415974, 54057604, 7475704, 0066894 ####[address] [place] [address] Neutrophils/Leukocy stevan Auto (Bld) [Pure # fraction] 2.2 E9/L Normal 2.0-7.5 [facility] Comment on above: Order Comment: Order Added by Discern Expert. Performed By: #### 2 484983, 20600330, 6017660, 4503003, 91832255, 9344609, 3873675 ####[address] [place] [address] B hCG Qualon 12-31-2022 Beta HCG ( test) Ql Negative Normal [facility] Comment on above: Performed By: #### 2 361444, 63834546, 9880155, 6445242, 42664809, 3249991, 7886379 ####[facility] [address] [place] [address] BMPon 12-31-2022 Creatinine [Mass/Vol] 0.8 mg/dL Normal 0.5-1.3 [facility] Comment on above: Performed By: #### 2 477296, 18874530, 5542729, 9681162, 72627462, 3843811, 0485426 ####[facility] [address] [place] [address] Urea nitrogen [Mass/Vol] 16 mg/dL Normal 5-21 [facility] Comment on above: Performed By: #### 2 572308, 52214826, 7578248, 4003430, 83770665, 6136957, 3145674 ####[facility] [address] [place] [address] Urea nitrogen/Creatinine [Mass ratio] 20 No Units Normal 10-20 [facility] Comment on above: Performed By: #### 2 840556, 35721145, 2654536, 8003777, 98156960, 7413371, 4096903 ####[facility] [address] [place] [address] Anion gap [Moles/Vol] 10 mmol/L Normal 6-16 [facility] Comment on above: Performed By: #### 2 840093, 26726022, 6576200, 3911202, 51737487, 9324424, 7769891 ####[facility] [address] [place] [address] Calcium [Mass/Vol] 8.6 mg/dL Low 8.9-11.1 [facility] Comment on above: Performed By: #### 2 391482, 39346885, 1345690, 4057316, 07767972, 8712533, 6355871 ####[facility] [address] [place] [address] Chloride [Moles/Vol] 110 mmol/L Normal 101-111 [facility] Comment on above: Performed By: #### 2 483276, 24381880, 6854151, 4468945, 22190869, 8311563, 5689591 ####[facility] [address] [place] [address] CO2 [Moles/Vol] 20 mmol/L Low 21-31 [facility] Comment on above: Performed By: #### 2 259782, 14582559, 1350495, 7607578, 91884747, 2073350, 1267377 ####[facility] [address] [place] [address] Glucose [Mass/Vol] 87 mg/dL Normal 55-199 [facility] Comment on above: Result Comment: If t his glucose result represents a fasting glucose, interpretation should refer to the following reference range: 55-99 mg/dL Performed By: #### 2 315475, 30819804, 5487480, 7128965, 18335323, 3880472, 7978290 ####[facility] [address] [place] [address] Potassium [Moles/Vol] 3.2 mmol/L Low 3.5-5.3 [facility] Comment on above: Performed By: #### 2 198708, 90661197, 3389739, 3389103, 82414428, 4876805, 0332388 ####[address] [address] Sodium [Moles/Vol] 137 mmol/L Normal 135-145 [facility] Comment on above: Performed By: #### 2 471626, 86367824, 8916561, 8287962, 77909925, 3757566, 1562361 ####[address] [address] CBC w/ Auto Diffon 3 Erythrocyte distribution width (RBC) [Ratio] 13.9 % Normal 10.9-14.2 [facility] Comment on above: Performed By: #### 2 [id number], [id number], 4075571, 8063432, [id number], 6343821, [id number] ####[id number] [place] [address] Hematocrit (Bld) [Volume fraction] 35.5 % Normal 34.0-46.0 [facility] Comment on above: Performed By: #### 2 [id number], [id number], 8013601, 7814562, [id number], 7618931, [id number] ####[facility] [id number] [place] [address] Hemoglobin (Bld) [Mass/Vol] 12.2 g/dL Normal 12.0-16.0 [facility] Comment on above: Performed By: #### 2 751503, [id number], 1074058, 6685896, 66106536, 8992461, 4138856 ####[address] [address] MCH (RBC) [Entitic mass] 30.8 pg Normal 27.0-34.0 [facility] Comment on above: Performed By: #### 2 898794, 04690586, 8056115, 4744811, 72534381, 0168142, 0086420 ####[address] [address] MCHC (RBC) [Mass/Vol] 34.4 g/dL Normal 31.4-36.0 [facility] Comment on above: Performed By: #### 2 718854, 06072769, 7115229, 2472489, 71833780, 1634313, 6658264 ####[address] [address] MCV (RBC) [Entitic vol] 89.5 fL Normal 80.0-100.0 [facility] Comment on above: Performed By: #### 2 152825, 12267700, 9327613, 2382339, 84034317, 1546752, 1997450 ####[address] [address] Platelet mean volume (Bld) [Entitic vol] 9.5 fL Normal 6.4-10.8 [facility] Comment on above: Performed By: #### 2 302415, 30674448, 8112396, 7002535, 41704559, 0571290, 3270809 ####[address] [address] Platelets (Bld) [#/Vol] 177.0 E9/L Normal 150.0-500.0 [facility] Comment on above: Performed By: #### 2 671832, 87215639, 0694293, 5194918, 98083869, 2520319, 4927682 ####[facility] [address] [place] [address] RBC (Bld) [#/Vol] 4.0 E12/L Low 4.3-5.9 [facility] Comment on above: Performed By: #### 2 854185, 83116349, 1028874, 2535488, 18159563, 5150410, 1643104 ####[facility] [address] [place] [address] WBC corrected for nucl RBC Auto (Bld) [#/Vol] 4.4 E9/L Normal 4.0-11.0 [facility] Comment on above: Performed By: #### 2 072550, 26620932, 0997156, 2917886, 70884569, 7212383, 1335688 ####[facility] [address] [place] [address] CHEMISTRYOrdered By: SYSTEM SYSTEM on 12-31-2022 Albumin [...] rate/Area] 100 mL/min/1.73 m2 Normal >=59mL/min/1.73 m2 [facility] Chem S Comment on above: [...] 7.8 gm/dL F [facility] Remisol Sodium [Moles/Vol] 137 mmol/L Normal 135 - 145 mmol/L FT Remisol Urea nitrogen [Mass/Vol] 16 mg/dL Normal 5 - 21 mg/dL FT Remisol Urea nitrogen/Creatinine [Mass ratio] 20 mg/mg Normal 10 - 20 [facility] Remisol Consent for Treatmenton 12-16 Consent for Treatment [id number] 34#1.00TIFF Normal [facility] Discharge Instructionson Discharge Instructions [id number] 93#1.00TIFF Normal [facility] ED Clinical Summaryon 2022 ED Clinical Summary Normal [facility] ED Note-Physicianon 01-01-20 ED Note-Physician Normal [facility] Comment on above: Result Comment: Elec tronically Signed By: Lonnie Rios PA-C\.br\Date and Time Signed: 12/31/22 19:15 EST\.br\Electronically Co-Signed By: Mateusz Garcia DO\.br\Date and Time Co-Signed: 12/31/22 19:25 EST ED Patient Education Noteon 12-31-2022 ED Patient Education Note Normal [facility] ED Patient Summaryon ED Patient Summary Normal [facility] HEMATOLOGYOrdered By: SYSTEM SYSTEM on [...] 48.8 % Normal 36.0 - 75.0 % [facility] HemeAutoSS Neutrophils/Leukocy stevan Auto (Bld) [Pure # fraction] 2.2 E9/L Normal 2.0 - 7.5 E9/L [facility] HemeAutoSS HEMATOLOGYOrdered By: Shannon osei on 12-31-2022 Erythrocyte distribution width (RBC) [Ratio] 13.9 % Normal 10.9 - 14.2 % [facility] HemeAutoSS Hematocrit (Bld) [Volume fraction] 35.5 % Normal 34.0 - 46.0 % [facility] HemeAutoSS Hemoglobin (Bld) [Mass/Vol] 12.2 g/dL Normal 12.0 - 16.0 gm/dL [facility] HemeAutoSS MCH (RBC) [Entitic mass] 30.8 pg Normal 27.0 - 34.0 pg [facility] HemeAutoSS MCHC (RBC) [Mass/Vol] 34.4 g/dL Normal 31.4 - 36.0 gm/dL [facility] HemeAutoSS MCV (RBC) [Entitic vol] 89.5 fL Normal 80.0 - 100.0 fL [facility] HemeAutoSS Platelet mean volume (Bld) [Entitic vol] 9.5 fL Normal 6.4 - 10.8 fL [facility] HemeAutoSS Platelets (Bld) [#/Vol] 177.0 E9/L Normal 150.0 - 500.0 E9/L [facility] HemeAutoSS RBC (Bld) [#/Vol] 4.0 E12/L Low 4.3 - 5.9 E12/L [facility] HemeAutoSS WBC corrected for nucl RBC Auto (Bld) [#/Vol] 4.4 E9/L Normal 4.0 - 11.0 E9/L [facility] HemeAutoSS Hep Func Panelon 12-31-2022 Albumin [Mass/Vol] 3.9 g/dL Normal 3.3-5.0 [facility] Comment on above: Performed By: #### 2 622812, 42136046, 8772608, 1650012, 61055583, 9993099, 9149470 ####[facility] [address] [place] [address] Albumin/Globulin (S) [Mass conc ratio] 1.3 Normal 1.1-2.2 [facility] Comment on above: Performed By: #### 2 383023, 53825636, 7268192, 9102585, 86283090, 9775790, 6630546 ####[facility] [address] [place] [address] ALP [Catalytic activity/Vol] 51 Int._Unit/L Normal 21-98 [facility] Comment on above: Performed By: #### 2 639742, 92875852, 6610355, 0864066, 06942866, 3219333, 2252052 ####[facility] [address] [place] [address] ALT No additional P-5'-P [Catalytic activity/Vol] 21 Int._Unit/L Normal 6-46 [facility] Comment on above: Performed By: #### 2 807677, 27647253, 5545155, 0936805, 79032869, 8912548, 0239014 ####[address] [address] AST [Catalytic activity/Vol] 32 Int._Unit/L Normal 5-43 [facility] Comment on above: Performed By: #### 2 759691, 05829774, 9304994, 2333897, 58621893, 6129271, 1778415 ####[address] [address] Bilirubin [Mass/Vol] 0.5 mg/dL Normal 0.0-1.1 [facility] Comment on above: Performed By: #### 2 464299, 50890433, 6403502, 5639411, 97242826, 7097656, 1446620 ####[address] [address] Bilirubin.direct [Mass/Vol] 0.1 mg/dL Normal 0.1-0.4 [facility] Comment on above: Performed By: #### 2 416874, 84393533, 4878187, 1819787, 37445987, 3680874, 0039282 ####[address] [place] [address] Bilirubin.indirect [Mass or moles/Vol] 0.4 mg/dL Normal 0.1-0.9 [facility] Comment on above: Performed By: #### 2 657296, 82785907, 6610607, 4783379, 67113235, 5230922, 4669081 ####[address] [address] Globulin (S) [Mass/Vol] 2.9 g/dL Normal 1.4-4.0 [facility] Comment on above: Performed By: #### 2 900750, 31589462, 8547512, 8940712, 33184245, 0668220, 4625244 ####[facility] [address] [place] [address] Protein [Mass/Vol] 6.8 g/dL Normal 6.0-7.8 [facility] Comment on above: Performed By: #### 2 600905, 80234047, 8695553, 5843941, 81046602, 2832917, 0000388 ####[address] [address] Lipase Levelon 12-31-2022 Lipase [Catalytic activity/Vol] 49 U/L Normal 13-58 [facility] Comment on above: Performed By: #### 2 946273, 73306910, 5604318, 6812571, 92257238, 6524243, 2926651 ####[facility] [address] [place] [address] SEROLOGYOrdered By: Stacia Blair on 12-31-2022 Beta HCG ( test) Ql Negative (12/31/22 1:16 PM) Normal [facility] Man Sero UA With Cult Reflexon 2022 Bilirubin Ql (U) Negative Normal Negative [facility] Comment on above: Performed By: #### 1 6960616 ####[facility] [address] [place] [address] Clarity (U) CLEAR Normal Clear [facility] Comment on above: Performed By: #### 1 6066946 ####[facility] [address] [place] [address] Color (U) YELLOW Normal Yellow [facility] Comment on above: Performed By: #### 1 0371353 ####[address] [address] Epithelial cells.squamous LM.HPF (Urine sed) [#/Area] 0-2 Normal 0-2 [facility] Comment on above: Performed By: #### 1 5018823 ####[address] [address] Glucose Test strip (U) [Mass/Vol] Negative Normal Negative [facility] Comment on above: Performed By: #### 1 1194804 ####[address] [address] Hemoglobin Ql (U) Negative Normal Negative [facility] Comment on above: Performed By: #### 1 6117624 ####[address] [address] Ketones (U) [Mass/Vol] Negative Normal Negative [facility] Comment on above: Performed By: #### 1 3560455 ####[address] [address] [place].plasma/Lith ium.RBC (Bld) [Mass ratio] 0-3 Normal 0-3 [facility] Comment on above: Performed By: #### 1 3056679 ####[facility] [address] [place] [address] Mucus Ql (Urine sed) TRACE Normal [facility] Comment on above: Performed By: #### 1 8306590 ####[address] [address] Nitrite Ql (U) Negative Normal Negative [facility] Comment on above: Performed By: #### 1 6505458 ####[address] [address] pH (U) 6.0 [pH] Invalid Interpretation Code 5.0-9.0 [facility] Comment on above: Performed By: #### 1 2339910 ####[facility] [address] [place] [address] Protein (U) [Mass/Vol] Negative Normal Negative [facility] Comment on above: Performed By: #### 1 1114697 ####[facility] [address] [place] [address] Specific gravity (U) [Rel density] 1.015 Invalid Interpretation Code 1.005-1.030 [facility] Comment on above: Performed By: #### 1 1390543 ####[facility] [address] [place] [address] Type of Urine collection method Clean Catch Normal [facility] Comment on above: Performed By: #### 1 0521434 ####[address] [address] Urobilinogen Qn (U) 0.2 {Munir'U}/dL Normal 0.0-1.0 [facility] Comment on above: Performed By: #### 1 7952778 ####[facility] [address] [place] [address] WBC Auto Ql (U) Negative Normal Negative [facility] Comment on above: Performed By: #### 1 2256232 ####[facility] [address] [place] [address] WBC LM.HPF (Urine sed) [#/Area] 0-5 Normal 0-5 [facility] Comment on above: Performed By: #### 1 7351459 ####[facility] [address] [place] [address] URINALYSISOrdered By: Marlene Blair on 12-31-2022 Bilirubin Ql (U) Negative (12/31/22 1:16 PM) Normal Negative [facility] UA Auto SS Clarity (U) Clear (12/31/22 1:16 PM) Normal Clear [facility] UA Auto SS Color (U) Yellow (12/31/22 1:16 PM) Normal Yellow [facility] UA Auto SS Epithelial cells.squamous LM.HPF (Urine sed) [#/Area] 0-2 /HPF Normal 0-2/HPF [facility] UA Auto SS Glucose Test strip (U) [Mass/Vol] Negative (12/31/22 1:16 PM) Normal Negative [facility] UA Auto SS Hemoglobin Ql (U) Negative (12/31/22 1:16 PM) Normal Negative [facility] UA Auto SS Ketones (U) [Mass/Vol] Negative (12/31/22 1:16 PM) Normal Negative [facility] UA Auto SS [place].plasma/Lith ium.RBC (Bld) [Mass ratio] 0-3 /HPF Normal [...] Desc Clean Catch (12/31/22 1:16 PM) Normal [facility] UA Auto SS Urobilinogen Qn (U) 0.2110001 {Munir'U}/dL Normal 0.0 - 1.0 EU/dL [facility] UA Auto SS WBC Auto Ql (U) Negative (12/31/22 1:16 PM) Normal Negative [facility] UA Auto SS WBC LM.HPF (Urine sed) [#/Area] 0-5 /HPF Normal 0-5/HPF [facility] UA Auto SS eGFRon 12-31-2022 GFR/1.73 sq M.predicted among non-blacks MDRD (S/P/Bld) [Vol rate/Area] 100 mL/min/1.73 m2 Normal >=59 [facility] Comment on above: Order Comment: Order added by Discern Expert. Result Comment: Facer Operator alejandra kidney disease could be indicated at eGFR's of less than 60 mL/min/1.73m2. Kidney failure is indicated at less than 15 mL/min/1.73m2. Performed By: #### 2 178387, 68294785, 2381796, 4413169, 11599470, 0805147, 3575897 ####[facility] [address] [place] [address] [facility] Office/Clini c Noteon 12-29-2022 [facility] Office/Clinic Note Normal [facility] Comment on above: Result Comment: Elec tronically Signed By: Cristhian REDDING, Jaquan Johnson\.br\Date and Time Signed: 12/29/22 15:35 EST Provider Letteron 12-29-2022 Provider Letter Normal [facility] CNCOon 12-28-2022 CNCO Letter Text Normal [facility] CNPNon 12-28-2022 CNPN Normal [facility] CNCOon 12-25-2022 CNCO Letter Text Normal [facility] CNPNon 12-23-2022 CNPN Normal [facility] CBC With Platelet and Differ entialon 12-14-2022 Basophils (Bld) [#/Vol] 0.0 10*3/uL Normal 0.0-0.2 [facility] Comment on above: Performed By: #### L IPAS #### [facility] [address] [place] [address] Basophils/100 WBC (Bld) 0.9 % Normal [facility] Comment on above: Performed By: #### L IPAS #### [facility] [address] [place] [address] Eosinophils (Bld) [#/Vol] 0.2 10*3/uL Normal 0.0-0.7 [facility] Comment on above: Performed By: #### L IPAS #### [facility] [address] [place] [address] Eosinophils/100 WBC (Bld) 4.0 % Normal [facility] Comment on above: Performed By: #### L IPAS #### [facility] [address] [place] [address] Erythrocyte distribution width (RBC) [Ratio] 13.2 % Normal 11.5-14.5 [facility] Comment on above: Performed By: #### L IPAS #### [facility] [address] [place] [address] Hematocrit (Bld) [Volume fraction] 36.5 % Low 37.0-47.0 [facility] Comment on above: Performed By: #### L IPAS #### [facility] [address] [place] [address] Hemoglobin (Bld) [Mass/Vol] 12.4 g/dL Normal 12.0-16.0 [facility] Comment on above: Performed By: #### L IPAS #### [facility] [address] [place] [address] Lymphocytes (Bld) [#/Vol] 1.7 10*3/uL Normal 1.0-4.8 [facility] Comment on above: Performed By: #### L IPAS #### [facility] [address] [place] [address] Lymphocytes/100 WBC (Bld) 40.7 % Normal [facility] Comment on above: Performed By: #### L IPAS #### [facility] [address] [place] [address] MCH (RBC) [Entitic mass] 31.0 pg Normal 27.0-31.3 [facility] Comment on above: Performed By: #### L IPAS #### [facility] [address] [place] [address] MCHC 34.0 % Normal 33.0-37.0 [facility] Comment on above: Performed By: #### L IPAS #### [facility] [address] [place] [address] MCV (RBC) [Entitic vol] 91.3 fL Normal 79.4-94.8 [facility] Comment on above: Performed By: #### L IPAS #### [facility] [address] [place] [address] Monocytes (Bld) [#/Vol] 0.3 10*3/uL Normal 0.2-0.8 [facility] Comment on above: Performed By: #### L IPAS #### [facility] [address] [place] [address] Monocytes/100 WBC (Bld) 7.7 % Normal [facility] Comment on above: Performed By: #### L IPAS #### [facility] [address] [place] [address] Neutrophils (Bld) [#/Vol] 2.0 10*3/uL Normal 1.4-6.5 [facility] Comment on above: Performed By: #### L IPAS #### [facility] [address] [place] [address] Neutrophils/100 WBC (Bld) 46.5 % Normal [facility] Comment on above: Performed By: #### L IPAS #### [facility] [address] [place] [address] Platelets (Bld) [#/Vol] 187 10*3/uL Normal 130-400 [facility] Comment on above: Performed By: #### L IPAS #### [facility] [address] [place] [address] RBC (Bld) [#/Vol] 4.00 10*6/uL Low 4.20-5.40 [facility] Comment on above: Performed By: #### L IPAS #### [facility] [address] [place] [address] WBC (Bld) [#/Vol] 4.3 10*3/uL Low 4.8-10.8 [facility] Comment on above: Performed By: #### L IPAS #### [facility] [address] [place] [address] CTA ABDOMEN PELVIS W WO CONT RASTon [...] Addison Lorenzo MD 12/14/22 Final result Normal [facility] Comprehensive Metabolic Pane nestor 12-14-2022 Albumin [Mass/Vol] 4.0 g/dL Normal 3.5-4.6 [facility] Comment on above: Performed By: #### L IPAS #### [facility] [address] [place] [address] ALP [Catalytic activity/Vol] 70 U/L Normal 40-130 [facility] Comment on above: Performed By: #### L IPAS #### [facility] [address] [place] [address] ALT [Catalytic activity/Vol] 20 U/L Normal 0-33 [facility] Comment on above: Performed By: #### L IPAS #### [facility] [address] [place] [address] Anion gap [Moles/Vol] 16 mmol/L Critically high 9-15 [facility] Comment on above: Performed By: #### L IPAS #### [facility] [address] [place] [address] AST [Catalytic activity/Vol] 33 U/L Normal 0-35 [facility] Comment on above: Performed By: #### L IPAS #### [facility] [address] [place] [address] Bilirubin [Mass/Vol] 0.3 mg/dL Normal 0.2-0.7 [facility] Comment on above: Performed By: #### L IPAS #### [facility] [address] [place] [address] Calcium [Mass/Vol] 8.8 mg/dL Normal 8.5-9.9 [facility] Comment on above: Performed By: #### L IPAS #### [facility] [address] [place] [address] Chloride [Moles/Vol] 107 mmol/L Normal 95-107 [facility] Comment on above: Performed By: #### L IPAS #### [facility] [address] [place] [address] CO2 [Moles/Vol] 20 mmol/L Normal 20-31 [facility] Comment on above: Performed By: #### L IPAS #### [facility] [address] [place] [address] Creatinine [Mass/Vol] 0.75 mg/dL Normal 0.50-0.90 [facility] Comment on above: Performed By: #### L IPAS #### [facility] [address] [place] [address] GFR >60.0 Normal >60 [facility] Comment on above: Result Comment: [...] secretion. Performed By: #### L IPAS #### [facility] [address] [place] [address] Globulin (S) [Mass/Vol] 2.5 g/dL Normal 2.3-3.5 [facility] Comment on above: Performed By: #### L IPAS #### [facility] [address] [place] [address] Glucose [Mass/Vol] 88 mg/dL Normal 70-99 [facility] Comment on above: Performed By: #### L IPAS #### [facility] [address] [place] [address] Potassium [Moles/Vol] 3.8 mmol/L Normal 3.4-4.9 [facility] Comment on above: Performed By: #### L IPAS #### [facility] [address] [place] [address] Protein [Mass/Vol] 6.5 g/dL Normal 6.3-8.0 [facility] Comment on above: Performed By: #### L IPAS #### [facility] [address] [place] [address] Sodium [Moles/Vol] 143 mmol/L Normal 135-144 [facility] Comment on above: Performed By: #### L IPAS #### [facility] [address] [place] [address] Urea nitrogen [Mass/Vol] 11 mg/dL Normal 6-20 [facility] Comment on above: Performed By: #### L IPAS #### [facility] [address] [place] [address] Lipaseon 12-14-2022 Lipase [Catalytic activity/Vol] 39 U/L Normal 12-95 [facility] Comment on above: Performed By: #### L IPAS #### [facility] [address] [place] [address] POCT Venouson 12-14-2022 Creatinine [Mass/Vol] 0.8 mg/dL Normal 0.6-1.2 [facility] Comment on above: Performed By: #### P GLU #### [facility] [address] [place] [address] GFR >60 Normal >60 [facility] Comment on above: Result Comment: [...] secretion. Performed By: #### P GLU #### [facility] [address] [place] [address] POC Performed on SEE BELOW Normal [facility] Comment on above: Result Comment: Perf ormed on POC Performed By: #### P GLU #### [facility] [address] [place] [address] POC Sample Type KIRA Normal [facility] Comment on above: Performed By: #### P GLU #### [facility] [address] [place] [address] CNCOon 12-10-2022 CNCO Letter Text Normal [facility] ALLIED HEALTHon 12-09-2022 ALLIED HEALTH Normal [facility] CASE MANAGEMon 12-09-2022 CASE MANAGEM Normal [facility] CBC panel Auto (Bld)on 12-09 Erythrocyte distribution width (RBC) [Ratio] 13.5 % Normal 11.5-15.0 [facility] Comment on above: Order Comment: Speci men Type: BLOOD SPECIMENOrdering Facility: [facility] Address: [address] [place] [address] Performed By: #### 5 8410-2 ####[facility] [id number] [place] [address] [place] Hematocrit (Bld) [Volume fraction] 34.9 % Low 36.0-46.0 [facility] Comment on above: Order Comment: Speci men Type: BLOOD SPECIMENOrdering Facility: [facility] Address: [address] [place] [address] Performed By: #### 5 8410-2 ####[facility] [id number] [place] [address] [place] Hemoglobin (Bld) [Mass/Vol] 11.7 g/dL Normal 11.5-15.5 [facility] Comment on above: Order Comment: Speci men Type: BLOOD SPECIMENOrdering Facility: [facility] Address: [address] [place] [address] Performed By: #### 5 8410-2 ####[facility] [id number] [place] [address] [place] MCH (RBC) [Entitic mass] 31.0 pg Normal 26.0-34.0 [facility] Comment on above: Order Comment: Speci men Type: BLOOD SPECIMENOrdering Facility: [facility] Address: [address] [place] [address] Performed By: #### 5 8410-2 ####[facility] [id number] [place] [address] [place] MCHC (RBC) [Mass/Vol] 33.5 g/dL Normal 30.5-36.0 [facility] Comment on above: Order Comment: Speci men Type: BLOOD SPECIMENOrdering Facility: [facility] Address: [address] [place] [address] Performed By: #### 5 8410-2 ####[facility] [id number] [place] [address] [place] MCV (RBC) [Entitic vol] 92.3 fL Normal 80.0-100.0 [facility] Comment on above: Order Comment: Speci men Type: BLOOD SPECIMENOrdering Facility: [facility] Address: [address] [place] [address] Performed By: #### 5 8410-2 ####[facility] [id number] [place] [address] [place] Nucleated RBC (Bld) [#/Vol] 10*3/uL Normal <0.01 [facility] Comment on above: Order Comment: Speci men Type: BLOOD SPECIMENOrdering Facility: [facility] Address: [address] [place] [address] Performed By: #### 5 8410-2 ####[facility] [id number] [place] [address] [place] Platelet mean volume (Bld) [Entitic vol] 12.6 fL Normal 9.0-12.7 [facility] Comment on above: Order Comment: Speci men Type: BLOOD SPECIMENOrdering Facility: [facility] Address: [address] [place] [address] Performed By: #### 5 8410-2 ####[facility] [id number] [place] [address] [place] Platelets (Bld) [#/Vol] 172 10*3/uL Normal 150-400 [facility] Comment on above: Order Comment: Speci men Type: BLOOD SPECIMENOrdering Facility: [facility] Address: [address] [place] [address] Performed By: #### 5 8410-2 ####[facility] [id number] [place] [address] [place] RBC (Bld) [#/Vol] 3.78 10*6/uL Low 3.90-5.20 [facility] Comment on above: Order Comment: Speci men Type: BLOOD SPECIMENOrdering Facility: [facility] Address: [address] [place] [address] Performed By: #### 5 8410-2 ####[facility] [id number] [address] [address] [place] WBC (Bld) [#/Vol] 3.25 10*3/uL Low 3.70-11.00 [facility] Comment on above: Order Comment: Speci men Type: BLOOD SPECIMENOrdering Facility: [facility] Address: [address] [place] [address] Performed By: #### 5 8410-2 ####[facility] [id number] [place] [address] [place] CNDSon 12-09-2022 CNDS Normal [facility] CNPNon 12-09-2022 CNPN Normal [facility] CONSULT PROGon 12-09-2022 CONSULT PROG Normal [facility] Comprehensive metabolic 2000 panelon 12-09-2022 Albumin [Mass/Vol] 3.6 g/dL Low 3.9-4.9 [facility] Comment on above: Order Comment: Speci men Type: BLOOD SPECIMENOrdering Facility: [facility] Address: [address] [place] [address] Performed By: #### 2 777-1, 78526-0, 34452-7 ####[facility]CL[facility] [id number] [address] [address] [place] ALP [Catalytic activity/Vol] 59 U/L Normal 34-123 [facility] Comment on above: Order Comment: Speci men Type: BLOOD SPECIMENOrdering Facility: [facility] Address: [address] [place] [address] Performed By: #### 2 777-1, 83769-3, 03344-7 ####[facility] [id number] [place] [address] [place] ALT [Catalytic activity/Vol] 13 U/L Normal 7-38 [facility] Comment on above: Order Comment: Speci men Type: BLOOD SPECIMENOrdering Facility: [facility] Address: [address] [place] [address] Performed By: #### 2 777-1, 02239-2, ####[facility] [id number] [place] [address] [place] Anion gap [Moles/Vol] 9 mmol/L Normal 9-18 [facility] Comment on above: Order Comment: Speci men Type: BLOOD SPECIMENOrdering Facility: [facility] Address: [address] [place] [address] Performed By: #### 2 777-1, , ####[facility]IA [id number] [place] [address] [place] AST [Catalytic activity/Vol] 22 U/L Normal 13-35 [facility] Comment on above: Order Comment: Speci men Type: BLOOD SPECIMENOrdering Facility: [facility] Address: [address] [place] [address] Performed By: #### 2 777-1, 05046-1, ####[facility] [id number] [place] [address] [place] Bilirubin [Mass/Vol] 0.2 mg/dL Normal 0.2-1.3 [facility] Comment on above: Order Comment: Speci men Type: BLOOD SPECIMENOrdering Facility: [facility] Address: [address] [place] [address] Performed By: #### 2 777-1, 38126-6, ####[facility] [id number] [place] [address] [place] Calcium [Mass/Vol] 8.7 mg/dL Normal 8.5-10.2 [facility] Comment on above: Order Comment: Speci men Type: BLOOD SPECIMENOrdering Facility: [facility] Address: [address] [place] [address] Performed By: #### 2 777-1, , ####[facility] [id number] [place] [address] [place] Chloride [Moles/Vol] 108 mmol/L High 97-105 [facility] Comment on above: Order Comment: Speci men Type: BLOOD SPECIMENOrdering Facility: [facility] Address: [address] [place] [address] Performed By: #### 2 777-1, , ####[facility] [id number] [place] [address] [place] CO2 [Moles/Vol] 23 mmol/L Normal 22-30 [facility] Comment on above: Order Comment: Speci men Type: BLOOD SPECIMENOrdering Facility: [facility] Address: [address] [place] [address] Performed By: #### 2 777-1, , ####[facility] [id number] [place] [address] [place] Creatinine [Mass/Vol] 0.61 mg/dL Normal 0.58-0.96 [facility] Comment on above: Order Comment: Speci men Type: BLOOD SPECIMENOrdering Facility: [facility] Address: [address] [place] [address] Performed By: #### 2 777-1, , ####[facility] [id number] [address] [address] [place] Creatinine and Glomerular filtration rate.predicted panel (S/P/Bld) 121 mL/min/1.73m??? Normal >=60 [facility] Comment on above: Order Comment: Geraldo marrero Type: BLOOD SPECIMENOrdering Facility: [facility] Address: [address] [place] [address] Result Comment: Jessica mated Glomerular Filtration Rate [...] actual GFR. Performed By: #### 2 777-1, 63453-6, ####[facility]IA [id number] [place] [address] [place] Glucose [Mass/Vol] 79 mg/dL Normal 74-99 [facility] Comment on above: Order Comment: Geraldo marrero Type: BLOOD SPECIMENOrdering Facility: [facility] Address: [address] [place] [address] Result Comment: The [employer] (ADA) provides guidance for cutoff [...] Standards of Medical Care in Diabetes 2016, [employer]. Diabetes Care. 2016.39(Suppl 1). Performed By: #### 2 777-1, 53577-3, ####[facility] LABIA [id number] [place] [id number] [place] Potassium [Moles/Vol] 4.2 mmol/L Normal 3.7-5.1 [facility] Comment on above: Order Comment: Geraldo marrero Type: BLOOD SPECIMENOrdering Facility: [facility] Address: [address] [place] [address] Performed By: #### 2 777-1, , ####[facility] [id number] [address] [address] [place] Protein [Mass/Vol] 5.8 g/dL Low 6.3-8.0 [facility] Comment on above: Order Comment: Speci men Type: BLOOD SPECIMENOrdering Facility: [facility] Address: [address] [place] [address] Performed By: #### 2 777-1, , ####[facility] [id number] [place] [id number] [place] Sodium [Moles/Vol] 140 mmol/L Normal 136-144 [facility] Comment on above: Order Comment: Speci men Type: BLOOD SPECIMENOrdering Facility: [facility] Address: [address] [place] [address] Performed By: #### 2 777-1, , ####[facility]IA [id number] [place] [id number] [place] Urea nitrogen [Mass/Vol] 16 mg/dL Normal 7-21 [facility] Comment on above: Order Comment: Speci men Type: BLOOD SPECIMENOrdering Facility: [facility] Address: [address] [place] [address] Performed By: #### 2 777-1, , ####[facility]IA [id number] [place] [id number] [place] Magnesium SerPl-mCncon 12-09 Magnesium [Mass/Vol] 2.0 mg/dL Normal 1.7-2.3 [facility] Comment on above: Order Comment: Speci men Type: BLOOD SPECIMENOrdering Facility: [facility] Address: [address] [place] [address] Performed By: #### 2 777-1, 08346-9, ####[facility] [id number] [place] [address] [place] NURSING PROGon 12-09-2022 NURSING PROG Normal [facility] PT EDon 12-09-2022 PT ED Normal [facility] Phosphate SerPl-mCncon 12-09 Phosphate [Mass/Vol] 1.8 mg/dL Low 2.7-4.8 [facility] Comment on above: Order Comment: Speci men Type: BLOOD SPECIMENOrdering Facility: [facility] Address: [address] [place] [address] Result Comment: Resu lt rechecked. Performed By: #### 2 777-1, 97043-4, ####[facility]IA [id number] [place] [address] [place] ALLIED HEALTHon 12-08-2022 ALLIED HEALTH Normal [facility] CBC panel Auto (Bld)on 12-08 Erythrocyte distribution width (RBC) [Ratio] 13.4 % Normal 11.5-15.0 [facility] Comment on above: Order Comment: Speci men Type: BLOOD SPECIMENOrdering Facility: [facility] Address: [address] [place] [address] Performed By: #### 5 8410-2 ####[facility]CL[facility] [id number] [place] [address] [place] Hematocrit (Bld) [Volume fraction] 32.5 % Low 36.0-46.0 [facility] Comment on above: Order Comment: Speci men Type: BLOOD SPECIMENOrdering Facility: [facility] Address: [address] [place] [address] Performed By: #### 5 8410-2 ####[facility]IA [id number] [place] [address] [place] Hemoglobin (Bld) [Mass/Vol] 11.1 g/dL Low 11.5-15.5 [facility] Comment on above: Order Comment: Speci men Type: BLOOD SPECIMENOrdering Facility: [facility] Address: [address] [place] [address] Performed By: #### 5 8410-2 ####[facility]CL[facility] [id number] [place] [address] [place] MCH (RBC) [Entitic mass] 31.2 pg Normal 26.0-34.0 [facility] Comment on above: Order Comment: Speci men Type: BLOOD SPECIMENOrdering Facility: [facility] Address: [address] [place] [address] Performed By: #### 5 8410-2 ####[facility] [id number] [address] [place] MCHC (RBC) [Mass/Vol] 34.2 g/dL Normal 30.5-36.0 [facility] Comment on above: Order Comment: Speci men Type: BLOOD SPECIMENOrdering Facility: [facility] Address: [address] [place] [address] Performed By: #### 5 8410-2 ####[facility]IA [id number] [place] [address] [place] MCV (RBC) [Entitic vol] 91.3 fL Normal 80.0-100.0 [facility] Comment on above: Order Comment: Speci men Type: BLOOD SPECIMENOrdering Facility: [facility] Address: [address] [place] [address] Performed By: #### 5 8410-2 ####[facility]CL[facility] [id number] [place] [address] [place] Nucleated RBC (Bld) [#/Vol] 10*3/uL Normal <0.01 [facility] Comment on above: Order Comment: Speci men Type: BLOOD SPECIMENOrdering Facility: [facility] Address: [address] [place] [address] Performed By: #### 5 8410-2 ####[facility]CL[facility] [id number] [place] [address] [place] Platelet mean volume (Bld) [Entitic vol] 12.4 fL Normal 9.0-12.7 [facility] Comment on above: Order Comment: Speci men Type: BLOOD SPECIMENOrdering Facility: [facility] Address: [address] [place] [address] Performed By: #### 5 8410-2 ####[facility] [id number] [place] [address] [place] Platelets (Bld) [#/Vol] 161 10*3/uL Normal 150-400 [facility] Comment on above: Order Comment: Speci men Type: BLOOD SPECIMENOrdering Facility: [facility] Address: [address] [place] [address] Performed By: #### 5 8410-2 ####[facility]CL[facility] [id number] [place] [address] [place] RBC (Bld) [#/Vol] 3.56 10*6/uL Low 3.90-5.20 [facility] Comment on above: Order Comment: Speci men Type: BLOOD SPECIMENOrdering Facility: [facility] Address: [address] [place] [address] Performed By: #### 5 8410-2 ####[facility]CL[facility] [id number] [place] [address] [place] WBC (Bld) [#/Vol] 2.94 10*3/uL Low 3.70-11.00 [facility] Comment on above: Order Comment: Speci men Type: BLOOD SPECIMENOrdering Facility: [facility] Address: [address] [place] [address] Performed By: #### 5 8410-2 ####[facility] [id number] [address] [address] [place] CNPNon 12-08-2022 CNPN Normal [facility] CONSULT PROGon 12-08-2022 CONSULT PROG Normal [facility] Comprehensive metabolic 2000 panelon 12-08-2022 Albumin [Mass/Vol] 3.1 g/dL Low 3.9-4.9 [facility] Comment on above: Order Comment: Speci men Type: BLOOD SPECIMENOrdering Facility: [facility] Address: [address] [place] [address] Performed By: #### 2 4323-8, 27708-15, ####[facility]CL[facility] [id number] [place] [address] [place] ALP [Catalytic activity/Vol] 57 U/L Normal 34-123 [facility] Comment on above: Order Comment: Speci men Type: BLOOD SPECIMENOrdering Facility: [facility] Address: [address] [place] [address] Performed By: #### 2 4323-8, 2776-02, ####[facility]IA [id number] [place] [address] [place] ALT [Catalytic activity/Vol] 16 U/L Normal 7-38 [facility] Comment on above: Order Comment: Speci men Type: BLOOD SPECIMENOrdering Facility: [facility] Address: [address] [place] [address] Performed By: #### 2 4323-8, 2776-02, ####[facility] LABIA [id number] [place] [id number] [place] Anion gap [Moles/Vol] 9 mmol/L Normal 9-18 [facility] Comment on above: Order Comment: Speci men Type: BLOOD SPECIMENOrdering Facility: [facility] Address: [address] [place] [address] Performed By: #### 2 4323-8, 2776-02, ####[facility]CL[facility] [id number] [place] [address] [place] AST [Catalytic activity/Vol] 26 U/L Normal 13-35 [facility] Comment on above: Order Comment: Speci men Type: BLOOD SPECIMENOrdering Facility: [facility] Address: [address] [place] [address] Performed By: #### 2 4323-8, 2776-02, ####[facility]CL[facility] [id number] [place] [address] [place] Bilirubin [Mass/Vol] 0.2 mg/dL Normal 0.2-1.3 [facility] Comment on above: Order Comment: Speci men Type: BLOOD SPECIMENOrdering Facility: [facility] Address: [address] [place] [address] Performed By: #### 2 4323-8, 2776-02, ####[facility]CL[facility] [id number] [place] [address] [place] Calcium [Mass/Vol] 8.2 mg/dL Low 8.5-10.2 [facility] Comment on above: Order Comment: Speci men Type: BLOOD SPECIMENOrdering Facility: [facility] Address: [address] [place] [address] Performed By: #### 2 4323-8, 2776-02, ####[facility]CL[facility] [id number] [place] [id number] [place] Chloride [Moles/Vol] 109 mmol/L High 97-105 [facility] Comment on above: Order Comment: Speci men Type: BLOOD SPECIMENOrdering Facility: [facility] Address: [address] [place] [address] Performed By: #### 2 4323-8, 2776-02, ####[facility]CL[facility] [id number] [place] [address] [place] CO2 [Moles/Vol] 23 mmol/L Normal 22-30 [facility] Comment on above: Order Comment: Speci men Type: BLOOD SPECIMENOrdering Facility: [facility] Address: [address] [place] [address] Performed By: #### 2 4323-8, 2777, ####[facility] [id number] [place] [id number] [place] Creatinine [Mass/Vol] 0.73 mg/dL Normal 0.58-0.96 [facility] Comment on above: Order Comment: Speci men Type: BLOOD SPECIMENOrdering Facility: [facility] Address: [address] [place] [address] Performed By: #### 2 4323-8, 27708-15, ####[facility] [id number] [place] [address] [place] Creatinine and Glomerular filtration rate.predicted panel (S/P/Bld) 112 mL/min/1.73m??? Normal >=60 [facility] Comment on above: Order Comment: Lyssai men Type: BLOOD SPECIMENOrdering Facility: [facility] Address: [address] [place] [address] Result Comment: Jessica mated Glomerular Filtration Rate [...] GFR. Performed By: #### 2 4323-8, 27708-15, ####[facility]IA [id number] [address] [address] [place] Glucose [Mass/Vol] 119 mg/dL High 74-99 [facility] Comment on above: Order Comment: Geraldo marrero Type: BLOOD SPECIMENOrdering Facility: [facility] Address: [address] [place] [address] Result Comment: The [place] [employer] (ADA) provides guidance for cutoff [...] Standards of Medical Care in Diabetes 2016, [place] [employer]. Diabetes Care. 2016.39(Suppl 1). Performed By: #### 2 4323-8, 2777, ####[facility]CL[facility] [id number] [place] [address] [place] Potassium [Moles/Vol] 3.5 mmol/L Low 3.7-5.1 [facility] Comment on above: Order Comment: Geraldo marrero Type: BLOOD SPECIMENOrdering Facility: [facility] Address: [address] [place] [address] Performed By: #### 2 4323-8, 27708-15, ####[facility] [id number] [place] [id number] [place] Protein [Mass/Vol] 5.2 g/dL Low 6.3-8.0 [facility] Comment on above: Order Comment: Geraldo marrero Type: BLOOD SPECIMENOrdering Facility: [facility] Address: [address] [place] [address] Performed By: #### 2 4323-8, 27708-15, ####[facility] [id number] [place] [id number] [place] Sodium [Moles/Vol] 141 mmol/L Normal 136-144 [facility] Comment on above: Order Comment: Speci men Type: BLOOD SPECIMENOrdering Facility: [facility] Address: [address] [place] [address] Performed By: #### 2 4323-8, 27708-15, ####[facility] [id number] [place] [address] [place] Urea nitrogen [Mass/Vol] 10 mg/dL Normal 7-21 [facility] Comment on above: Order Comment: Speci men Type: BLOOD SPECIMENOrdering Facility: [facility] Address: [address] [place] [address] Performed By: #### 2 4323-8, 2776-02, ####[facility] [id number] [place] [address] [place] Magnesium SerPl-mCncon 12-08 Magnesium [Mass/Vol] 2.1 mg/dL Normal 1.7-2.3 [facility] Comment on above: Order Comment: Speci men Type: BLOOD SPECIMENOrdering Facility: [facility] Address: [address] [place] [address] Performed By: #### 2 4323-8, 2776-02, ####[facility] [id number] [place] [id number] [place] Phosphate SerPl-mCncon 12-08 Phosphate [Mass/Vol] 4.7 mg/dL Normal 2.7-4.8 [facility] Comment on above: Order Comment: Speci men Type: BLOOD SPECIMENOrdering Facility: [facility] Address: [address] [place] [address] Performed By: #### 2 4323-8, 27708-15, ####[facility] [id number] [place] [id number] [place] CBC panel Auto (Bld)on 12-07 Erythrocyte distribution width (RBC) [Ratio] 13.2 % Normal 11.5-15.0 [facility] Comment on above: Order Comment: Speci men Type: BLOOD SPECIMENOrdering Facility: [facility] Address: [address] [place] [address] Performed By: #### 5 8410-2 ####[facility] [id number] [place] [address] [place] Hematocrit (Bld) [Volume fraction] 33.9 % Low 36.0-46.0 [facility] Comment on above: Order Comment: Speci men Type: BLOOD SPECIMENOrdering Facility: [facility] Address: [address] [place] [address] Performed By: #### 5 8410-2 ####[facility] [id number] [address] [place] Hemoglobin (Bld) [Mass/Vol] 11.6 g/dL Normal 11.5-15.5 [facility] Comment on above: Order Comment: Speci men Type: BLOOD SPECIMENOrdering Facility: [facility] Address: [address] [place] [address] Performed By: #### 5 8410-2 ####[facility] [id number] [place] [address] [place] MCH (RBC) [Entitic mass] 30.9 pg Normal 26.0-34.0 [facility] Comment on above: Order Comment: Speci men Type: BLOOD SPECIMENOrdering Facility: [facility] Address: [address] [place] [address] Performed By: #### 5 8410-2 ####[facility] [id number] [place] [address] [place] MCHC (RBC) [Mass/Vol] 34.2 g/dL Normal 30.5-36.0 [facility] Comment on above: Order Comment: Speci men Type: BLOOD SPECIMENOrdering Facility: [facility] Address: [address] [place] [address] Performed By: #### 5 8410-2 ####[facility] [id number] [place] [address] [place] MCV (RBC) [Entitic vol] 90.4 fL Normal 80.0-100.0 [facility] Comment on above: Order Comment: Speci men Type: BLOOD SPECIMENOrdering Facility: [facility] Address: [address] [place] [address] Performed By: #### 5 8410-2 ####[facility] [id number] [place] [address] [place] Nucleated RBC (Bld) [#/Vol] 10*3/uL Normal <0.01 [facility] Comment on above: Order Comment: Speci men Type: BLOOD SPECIMENOrdering Facility: [facility] Address: [address] [place] [address] Performed By: #### 5 8410-2 ####[facility] [id number] [place] [address] [place] Platelet mean volume (Bld) [Entitic vol] 12.5 fL Normal 9.0-12.7 [facility] Comment on above: Order Comment: Speci men Type: BLOOD SPECIMENOrdering Facility: [facility] Address: [address] [place] [address] Performed By: #### 5 8410-2 ####[facility] [id number] [place] [address] [place] Platelets (Bld) [#/Vol] 175 10*3/uL Normal 150-400 [facility] Comment on above: Order Comment: Speci men Type: BLOOD SPECIMENOrdering Facility: [facility] Address: [address] [place] [address] Performed By: #### 5 8410-2 ####[facility] [id number] [place] [address] [place] RBC (Bld) [#/Vol] 3.75 10*6/uL Low 3.90-5.20 [facility] Comment on above: Order Comment: Speci men Type: BLOOD SPECIMENOrdering Facility: [facility] Address: [address] [place] [address] Performed By: #### 5 8410-2 ####[facility] [id number] [place] [address] [place] WBC (Bld) [#/Vol] 2.61 10*3/uL Low 3.70-11.00 [facility] Comment on above: Order Comment: Speci men Type: BLOOD SPECIMENOrdering Facility: [facility] Address: [address] [place] [address] Performed By: #### 5 8410-2 ####[facility] [id number] [place] [address] [place] CONSULTon 12-07-2022 CONSULT Normal [facility] CONSULT PROGon 12-07-2022 CONSULT PROG Normal [facility] Comprehensive metabolic 2000 panelon 12-07-2022 Albumin [Mass/Vol] 3.4 g/dL Low 3.9-4.9 [facility] Comment on above: Order Comment: Speci men Type: BLOOD SPECIMENOrdering Facility: [facility] Address: [address] [place] [address] Performed By: #### 2 4323-8 ####[facility] [id number] [place] [address] [place] ALP [Catalytic activity/Vol] 62 U/L Normal 34-123 [facility] Comment on above: Order Comment: Speci men Type: BLOOD SPECIMENOrdering Facility: [facility] Address: [address] [place] [address] Performed By: #### 2 4323-8 ####[facility] [id number] [place] [address] [place] ALT [Catalytic activity/Vol] 19 U/L Normal 7-38 [facility] Comment on above: Order Comment: Speci men Type: BLOOD SPECIMENOrdering Facility: [facility] Address: [address] [place] [address] Performed By: #### 2 4323-8 ####[facility] [id number] [place] [address] [place] Anion gap [Moles/Vol] 9 mmol/L Normal 9-18 [facility] Comment on above: Order Comment: Speci men Type: BLOOD SPECIMENOrdering Facility: [facility] Address: [address] [place] [address] Performed By: #### 2 4323-8 ####[facility] [id number] [place] [address] [place] AST [Catalytic activity/Vol] 31 U/L Normal 13-35 [facility] Comment on above: Order Comment: Speci men Type: BLOOD SPECIMENOrdering Facility: [facility] Address: [address] [place] [address] Performed By: #### 2 4323-8 ####[facility] [id number] [place] [address] [place] Bilirubin [Mass/Vol] 0.3 mg/dL Normal 0.2-1.3 [facility] Comment on above: Order Comment: Speci men Type: BLOOD SPECIMENOrdering Facility: [facility] Address: [address] [place] [address] Performed By: #### 2 4323-8 ####[facility] [id number] [place] [address] [place] Calcium [Mass/Vol] 8.6 mg/dL Normal 8.5-10.2 [facility] Comment on above: Order Comment: Speci men Type: BLOOD SPECIMENOrdering Facility: [facility] Address: [address] [place] [address] Performed By: #### 2 4323-8 ####[facility] [id number] [place] [address] [place] Chloride [Moles/Vol] 108 mmol/L High 97-105 [facility] Comment on above: Order Comment: Speci men Type: BLOOD SPECIMENOrdering Facility: [facility] Address: [address] [place] [address] Performed By: #### 2 4323-8 ####[facility] [id number] [place] [address] [place] CO2 [Moles/Vol] 22 mmol/L Normal 22-30 [facility] Comment on above: Order Comment: Speci men Type: BLOOD SPECIMENOrdering Facility: [facility] Address: [address] [place] [address] Performed By: #### 2 4323-8 ####[facility] [id number] [place] [address] [place] Creatinine [Mass/Vol] 0.85 mg/dL Normal 0.58-0.96 [facility] Comment on above: Order Comment: Speci men Type: BLOOD SPECIMENOrdering Facility: [facility] Address: [address] [place] [address] Performed By: #### 2 4323-8 ####[facility] [id number] [place] [address] [place] Creatinine and Glomerular filtration rate.predicted panel (S/P/Bld) 93 mL/min/1.73m??? Normal >=60 [facility] Comment on above: Order Comment: Speci men Type: BLOOD SPECIMENOrdering Facility: [facility] Address: [address] [place] [address] Result Comment: Jessica mated Glomerular Filtration Rate [...] actual GFR. Performed By: #### 2 4323-8 ####[facility] [id number] [address] [address] [place] Glucose [Mass/Vol] 80 mg/dL Normal 74-99 [facility] Comment on above: Order Comment: Speci men Type: BLOOD SPECIMENOrdering Facility: [facility] Address: [address] [place] [address] Result Comment: The [employer] Diabetes Association (ADA) provides guidance for cutoff [...] Standards of Medical Care in Diabetes 2016, [employer] [employer]. Diabetes Care. 2016.39(Suppl 1). Performed By: #### 2 4323-8 ####[facility] [id number] [place] [id number] [place] Potassium [Moles/Vol] 3.7 mmol/L Normal 3.7-5.1 [facility] Comment on above: Order Comment: Speci men Type: BLOOD SPECIMENOrdering Facility: [facility] Address: [address] [place] [id number] Performed By: #### 2 4323-8 ####[facility] [id number] [address] [address] [place] Protein [Mass/Vol] 5.5 g/dL Low 6.3-8.0 [facility] Comment on above: Order Comment: Speci men Type: BLOOD SPECIMENOrdering Facility: [facility] Address: [address] [place] [address] Performed By: #### 2 4323-8 ####[facility] [id number] [address] [address] [place] Sodium [Moles/Vol] 139 mmol/L Normal 136-144 [facility] Comment on above: Order Comment: Speci men Type: BLOOD SPECIMENOrdering Facility: [facility] Address: [address] [place] [address] Performed By: #### 2 4323-8 ####[facility] [id number] [place] [address] [place] Urea nitrogen [Mass/Vol] 12 mg/dL Normal 7-21 [facility] Comment on above: Order Comment: Speci men Type: BLOOD SPECIMENOrdering Facility: [facility] Address: [address] [place] [address] Performed By: #### 2 4323-8 ####[facility] [id number] [place] [address] [place] NURSING PROGon 12-07-2022 NURSING PROG Normal [facility] XR CHEST 1V PORT POST PICC - NBon 12-07-2022 XR CHEST 1V PORT POST PICC -NB Normal [facility] CASE MGT INIT ASSESon 2022 CASE MGT INIT ASSES Normal [facility] CBC W Auto Differential pane l (Bld)on 12-06-2022 Basophils (Bld) [#/Vol] 10*3/uL Normal <0.11 [facility] Comment on above: Order Comment: Speci men Type: BLOOD SPECIMENOrdering Facility: [facility] Address: [address] [place] [address] Performed By: #### 5 7021-8 ####[facility] [id number] [place] [address] [place] Basophils/100 WBC (Bld) 0.7 % Normal [facility] Comment on above: Order Comment: Speci men Type: BLOOD SPECIMENOrdering Facility: [facility] Address: [address] [place] [address] Performed By: #### 5 7021-8 ####[facility] [id number] [place] [address] [place] Differential cell count method Nom (Bld) Auto Normal [facility] Comment on above: Order Comment: Speci men Type: BLOOD SPECIMENOrdering Facility: [facility] Address: [address] [place] [address] Performed By: #### 5 7021-8 ####[facility] [id number] [place] [address] [place] Eosinophils (Bld) [#/Vol] 0.09 10*3/uL Normal <0.46 [facility] Comment on above: Order Comment: Speci men Type: BLOOD SPECIMENOrdering Facility: [facility] Address: [address] [place] [address] Performed By: #### 5 7021-8 ####[facility] [id number] [place] [address] [place] Eosinophils/100 WBC (Bld) 2.9 % Normal [facility] Comment on above: Order Comment: Speci men Type: BLOOD SPECIMENOrdering Facility: [facility] Address: [address] [place] [address] Performed By: #### 5 7021-8 ####[facility] [id number] [place] [address] [place] Erythrocyte distribution width (RBC) [Ratio] 13.2 % Normal 11.5-15.0 [facility] Comment on above: Order Comment: Speci men Type: BLOOD SPECIMENOrdering Facility: [facility] Address: [address] [place] [address] Performed By: #### 5 7021-8 ####[facility] [id number] [place] [address] [place] Hematocrit (Bld) [Volume fraction] 33.7 % Low 36.0-46.0 [facility] Comment on above: Order Comment: Speci men Type: BLOOD SPECIMENOrdering Facility: [facility] Address: [address] [place] [address] Performed By: #### 5 7021-8 ####[facility] [id number] [place] [address] [place] Hemoglobin (Bld) [Mass/Vol] 11.6 g/dL Normal 11.5-15.5 [facility] Comment on above: Order Comment: Speci men Type: BLOOD SPECIMENOrdering Facility: [facility] Address: [address] [place] [address] Performed By: #### 5 7021-8 ####[facility] [id number] [place] [address] [place] Immature granulocytes (Bld) [#/Vol] 10*3/uL Normal <0.10 [facility] Comment on above: Order Comment: Speci men Type: BLOOD SPECIMENOrdering Facility: [facility] Address: [address] [place] [address] Performed By: #### 5 7021-8 ####[facility]IA [id number] [place] [address] [place] Immature granulocytes/100 WBC (Bld) 0.3 % Normal [facility] Comment on above: Order Comment: Speci men Type: BLOOD SPECIMENOrdering Facility: [facility] Address: [address] [place] [address] Performed By: #### 5 7021-8 ####[facility] [id number] [place] [address] [place] Lymphocytes (Bld) [#/Vol] 1.31 10*3/uL Normal 1.00-4.00 [facility] Comment on above: Order Comment: Speci men Type: BLOOD SPECIMENOrdering Facility: [facility] Address: [address] [place] [address] Performed By: #### 5 7021-8 ####[facility] [id number] [place] [address] [place] Lymphocytes/100 WBC (Bld) 42.8 % Normal [facility] Comment on above: Order Comment: Speci men Type: BLOOD SPECIMENOrdering Facility: [facility] Address: [address] [place] [address] Performed By: #### 5 7021-8 ####[facility] [id number] [place] [address] [place] MCH (RBC) [Entitic mass] 30.8 pg Normal 26.0-34.0 [facility] Comment on above: Order Comment: Speci men Type: BLOOD SPECIMENOrdering Facility: [facility] Address: [address] [place] [address] Performed By: #### 5 7021-8 ####[facility] [id number] [place] [address] [place] MCHC (RBC) [Mass/Vol] 34.4 g/dL Normal 30.5-36.0 [facility] Comment on above: Order Comment: Speci men Type: BLOOD SPECIMENOrdering Facility: [facility] Address: [address] [place] [address] Performed By: #### 5 7021-8 ####[facility]IA [id number] [place] [address] [place] MCV (RBC) [Entitic vol] 89.4 fL Normal 80.0-100.0 [facility] Comment on above: Order Comment: Speci men Type: BLOOD SPECIMENOrdering Facility: [facility] Address: [address] [place] [address] Performed By: #### 5 7021-8 ####[facility] [id number] [place] [address] [place] Monocytes (Bld) [#/Vol] 0.24 10*3/uL Normal <0.87 [facility] Comment on above: Order Comment: Speci men Type: BLOOD SPECIMENOrdering Facility: [facility] Address: [address] [place] [address] Performed By: #### 5 7021-8 ####[facility] [id number] [place] [address] [place] Monocytes/100 WBC (Bld) 7.8 % Normal [facility] Comment on above: Order Comment: Speci men Type: BLOOD SPECIMENOrdering Facility: [facility] Address: [address] [place] [address] Performed By: #### 5 7021-8 ####[facility] [id number] [place] [address] [place] Neutrophils (Bld) [#/Vol] 1.39 10*3/uL Low 1.45-7.50 [facility] Comment on above: Order Comment: Speci men Type: BLOOD SPECIMENOrdering Facility: [facility] Address: [address] [place] [address] Performed By: #### 5 7021-8 ####[facility] [id number] [place] [address] [place] Neutrophils/100 WBC (Bld) 45.5 % Normal [facility] Comment on above: Order Comment: Speci men Type: BLOOD SPECIMENOrdering Facility: [facility] Address: [address] [place] [address] Performed By: #### 5 7021-8 ####[facility] [id number] [place] [address] [place] Nucleated RBC (Bld) [#/Vol] 10*3/uL Normal <0.01 [facility] Comment on above: Order Comment: Speci men Type: BLOOD SPECIMENOrdering Facility: [facility] Address: [address] [place] [address] Performed By: #### 5 7021-8 ####[facility] [id number] [place] [address] [place] Nucleated RBC/100 WBC (Bld) [Ratio] 0.0 /100 WBC Normal [facility] Comment on above: Order Comment: Speci men Type: BLOOD SPECIMENOrdering Facility: [facility] Address: [address] [place] [address] Performed By: #### 5 7021-8 ####[facility] [id number] [place] [address] [place] Platelet mean volume (Bld) [Entitic vol] 11.9 fL Normal 9.0-12.7 [facility] Comment on above: Order Comment: Speci men Type: BLOOD SPECIMENOrdering Facility: [facility] Address: [address] [place] [address] Performed By: #### 5 7021-8 ####[facility]IA [id number] [place] [address] [place] Platelets (Bld) [#/Vol] 163 10*3/uL Normal 150-400 [facility] Comment on above: Order Comment: Speci men Type: BLOOD SPECIMENOrdering Facility: [facility] Address: [address] [place] [address] Performed By: #### 5 7021-8 ####[facility] [id number] [place] [address] [place] RBC (Bld) [#/Vol] 3.77 10*6/uL Low 3.90-5.20 [facility] Comment on above: Order Comment: Speci men Type: BLOOD SPECIMENOrdering Facility: [facility] Address: [address] [place] [address] Performed By: #### 5 7021-8 ####[facility] [id number] [place] [address] [place] WBC (Bld) [#/Vol] 3.06 10*3/uL Low 3.70-11.00 [facility] Comment on above: Order Comment: Speci men Type: BLOOD SPECIMENOrdering Facility: [facility] Address: [address] [place] [address] Performed By: #### 5 7021-8 ####[facility] [id number] [place] [address] [place] CTA ABD/PELV W IVCONon 12-06 CTA ABD/PELV W IVCON Normal [facility] metabolic 2000 panelon 12-06-2022 Albumin [Mass/Vol] 3.6 g/dL Low 3.9-4.9 [facility] Comment on above: Order Comment: Speci men Type: BLOOD SPECIMENOrdering Facility: [facility] Address: [address] [place] [address] Performed By: #### 2 4323-8, 3040-3, 85021-8, 2776-1 ####[facility] [id number] [place] [address] [place] ALP [Catalytic activity/Vol] 61 U/L Normal 34-123 [facility] Comment on above: Order Comment: Speci men Type: BLOOD SPECIMENOrdering Facility: [facility] Address: [address] [place] [address] Performed By: #### 2 4323-8, 3040-3, 84462-7, 2776-1 ####[facility] [id number] [place] [address] [place] ALT [Catalytic activity/Vol] 16 U/L Normal 7-38 [facility] Comment on above: Order Comment: Speci men Type: BLOOD SPECIMENOrdering Facility: [facility] Address: [address] [place] [address] Performed By: #### 2 4323-8, 3040-3, 11621-9, 277-1 ####[facility] [id number] [place] [address] [place] Anion gap [Moles/Vol] 10 mmol/L Normal 9-18 [facility] Comment on above: Order Comment: Speci men Type: BLOOD SPECIMENOrdering Facility: [facility] Address: [address] [place] [address] Performed By: #### 2 4323-8, 3040-3, 42841-8, 2776- ####[facility] [id number] [place] [address] [place] AST [Catalytic activity/Vol] 29 U/L Normal 13-35 [facility] Comment on above: Order Comment: Speci men Type: BLOOD SPECIMENOrdering Facility: [facility] Address: [address] [place] [address] Performed By: #### 2 4323-8, 3040-3, 21828-1, 2776-02 ####[facility] [id number] [place] [address] [place] Bilirubin [Mass/Vol] 0.2 mg/dL Normal 0.2-1.3 [facility] Comment on above: Order Comment: Speci men Type: BLOOD SPECIMENOrdering Facility: [facility] Address: [address] [place] [address] Performed By: #### 2 4323-8, 3040-3, 65606-4, 277- ####[facility] [id number] [place] [address] [place] Calcium [Mass/Vol] 8.2 mg/dL Low 8.5-10.2 [facility] Comment on above: Order Comment: Speci men Type: BLOOD SPECIMENOrdering Facility: [facility] Address: [address] [place] [address] Performed By: #### 2 4323-8, 3040-3, 89993-2, 277-1 ####[facility] [id number] [place] [address] [place] Chloride [Moles/Vol] 109 mmol/L High 97-105 [facility] Comment on above: Order Comment: Speci men Type: BLOOD SPECIMENOrdering Facility: [facility] Address: [address] [place] [address] Performed By: #### 2 4323-8, 3040-3, 16552-3, 2776- ####[facility] [id number] [place] [address] [place] CO2 [Moles/Vol] 21 mmol/L Low 22-30 [facility] Comment on above: Order Comment: Speci men Type: BLOOD SPECIMENOrdering Facility: [facility] Address: [address] [place] [address] Performed By: #### 2 4323-8, 3040-3, 89533-2, 2776-02 ####[facility] [id number] [place] [address] [place] Creatinine [Mass/Vol] 0.66 mg/dL Normal 0.58-0.96 [facility] Comment on above: Order Comment: Speci men Type: BLOOD SPECIMENOrdering Facility: [facility] Address: [address] [place] [address] Performed By: #### 2 4323-8, 3040-3, 79079-7, 27708-15 ####[facility] [id number] [place] [address] [place] Creatinine and Glomerular filtration rate.predicted panel (S/P/Bld) 119 mL/min/1.73m??? Normal >=60 [facility] Comment on above: Order Comment: Speci men Type: BLOOD SPECIMENOrdering Facility: [facility] Address: [address] [place] [address] Result Comment: Jessica mated Glomerular Filtration Rate [...] By: #### 2 4323-8, 3040-3, , 2776-02 ####[facility] [id number] [place] [address] [place] Glucose [Mass/Vol] 83 mg/dL Normal 74-99 [facility] Comment on above: Order Comment: Speci men Type: BLOOD SPECIMENOrdering Facility: [facility] Address: [address] [place] [address] Result Comment: The [employer] Diabetes Association (ADA) provides guidance for cutoff [...] Standards of Medical Care in Diabetes 2016, [place] [employer]. Diabetes Care. 2016.39(Suppl 1). Performed By: #### 2 4323-8, 3040-3, , 2776-02 ####[facility] [id number] [place] [id number] [place] Potassium [Moles/Vol] 3.7 mmol/L Normal 3.7-5.1 [facility] Comment on above: Order Comment: Speci men Type: BLOOD SPECIMENOrdering Facility: [facility] Address: [address] [place] [address] Performed By: #### 2 4323-8, 3040-3, 54968-8, 2777-1 ####[facility] [id number] [address] [address] [place] Protein [Mass/Vol] 5.9 g/dL Low 6.3-8.0 [facility] Comment on above: Order Comment: Speci men Type: BLOOD SPECIMENOrdering Facility: [facility] Address: [address] [place], [place] [address] Performed By: #### 2 4323-8, 3040-3, 56901-3, 2776- ####[facility] [id number] [place] [id number] [place] Sodium [Moles/Vol] 140 mmol/L Normal 136-144 [facility] Comment on above: Order Comment: Speci men Type: BLOOD SPECIMENOrdering Facility: [facility] Address: [address] [place], [place] [address] Performed By: #### 2 4323-8, 3040-3, 24825-4, 2776-02 ####[facility] [id number] [place] [id number] [place] Urea nitrogen [Mass/Vol] 13 mg/dL Normal 7-21 [facility] Comment on above: Order Comment: Speci men Type: BLOOD SPECIMENOrdering Facility: [facility] Address: [address] [place], [place] [address] Performed By: #### 2 4323-8, 3040-3, 18159-1, 2776-02 ####[facility] [id number] [address] [address] [place] ED NOTEon 12-06-2022 ED NOTE HNO ID: [id number] Author: Michelle Regalado RN Service: Emergency Medicine Author Type: Registered Nurse Type: ED Notes Filed: 12/06/2022 10:09 PM Note Text: Report called to DEE Argueta. Normal [facility] ED NOTE HNO ID: [id number] Author: Maia Mosher RN Service: Emergency Medicine Author Type: Registered Nurse Type: ED Notes Filed: 12/06/2022 3:19 PM Note Text: Nurse handoff given to DEE Carreon Normal [facility] ED PROV NOTEon 12-06-2022 ED PROV NOTE Normal [facility] HISTORY PHYSICALon HISTORY PHYSICAL Normal [facility] Lipase SerPl-cCncon 12-07-19 23 Lipase [Catalytic activity/Vol] 40 U/L Normal 16-61 [facility] Comment on above: Order Comment: Speci men Type: BLOOD SPECIMENOrdering Facility: [facility] Address: [address] [place] [address] Performed By: #### 2 4323-8, 3040-3, , 2776-02 ####[facility] [id number] [place] [address] [place] Magnesium SerPl-mCncon 12-06 Magnesium [Mass/Vol] 2.0 mg/dL Normal 1.7-2.3 [facility] Comment on above: Order Comment: Speci men Type: BLOOD SPECIMENOrdering Facility: [facility] Address: [address] [place] [address] Performed By: #### 2 4323-8, 3040-3, , 2776-02 ####[facility] [id number] [place] [address] [place] Phosphate SerPl-mCncon 12-06 Phosphate [Mass/Vol] 2.7 mg/dL Normal 2.7-4.8 [facility] Comment on above: Order Comment: Speci men Type: BLOOD SPECIMENOrdering Facility: [facility] Address: [address] [place] [address] Performed By: #### 2 4323-8, 3040-3, , 2776-02 ####[facility] [id number] [address] [place] Urinalysis complete panel (U )on 12-06-2022 Bacteria LM.HPF (Urine sed) [#/Area] Negative Normal Negative [facility] Comment on above: Order Comment: Speci men Type: URINE SPECIMENOrdering Facility: [facility] Address: [address] [place] [address] Performed By: #### 2 4356-8 ####[facility] [id number] [place] [address] [place] Bilirubin Ql (U) Negative Normal Negative [facility] Comment on above: Order Comment: Speci men Type: URINE SPECIMENOrdering Facility: [facility] Address: [address] [place] [address] Performed By: #### 2 4356-8 ####[facility] [id number] [place] [address] [place] Clarity (Unsp spec) Clear Normal Clear [facility] Comment on above: Order Comment: Speci men Type: URINE SPECIMENOrdering Facility: [facility] Address: [address] [place] [address] Performed By: #### 2 4356-8 ####[facility] [id number] [place] [address] [place] Color (U) Yellow Normal Yellow [facility] Comment on above: Order Comment: Speci men Type: URINE SPECIMENOrdering Facility: [facility] Address: [address] [place] [address] Performed By: #### 2 4356-8 ####[facility] [id number] [address] [place] Epithelial cells LM.HPF (Urine sed) [#/Area] Moderate Normal [facility] Comment on above: Order Comment: Speci men Type: URINE SPECIMENOrdering Facility: [facility] Address: [address] [place] [address] Performed By: #### 2 4356-8 ####[facility] LABCLIA [id number] [place] [address] [place] Glucose Test strip (U) [Mass/Vol] Negative Normal Negative [facility] Comment on above: Order Comment: Speci men Type: URINE SPECIMENOrdering Facility: [facility] Address: [address] [place] [address] Performed By: #### 2 4356-8 ####[facility] LABCLIA [id number] [place] [address] [place] Hemoglobin Ql (U) Negative Normal Negative [facility] Comment on above: Order Comment: Speci men Type: URINE SPECIMENOrdering Facility: [facility] Address: [address] [place] [address] Performed By: #### 2 4356-8 ####[facility] LABCLIA [id number] [place] [address] [place] Hyaline casts (Urine sed) [#/Area] 0 /[LPF] Normal 0 /LPF [facility] Comment on above: Order Comment: Speci men Type: URINE SPECIMENOrdering Facility: [facility] Address: [address] [place] [address] Performed By: #### 2 4356-8 ####[facility] LABCLIA [id number] [place] [address] [place] Ketones Ql (U) Negative Normal Negative [facility] Comment on above: Order Comment: Speci men Type: URINE SPECIMENOrdering Facility: [facility] Address: [address] [place] [address] Performed By: #### 2 4356-8 ####[facility] LABCLIA [id number] [place] [address] [place] Leukocyte esterase Test strip Ql (U) Negative Normal Negative [facility] Comment on above: Order Comment: Speci men Type: URINE SPECIMENOrdering Facility: [facility] Address: [address] [place] [address] Performed By: #### 2 4356-8 ####[facility] LABCLIA [id number] [place] [address] [place] Nitrite Ql (U) Negative Normal Negative [facility] Comment on above: Order Comment: Speci men Type: URINE SPECIMENOrdering Facility: [facility] Address: [address] [place] [address] Performed By: #### 2 4356-8 ####[facility] LABIA [id number] [place] [address] [place] pH (U) 7.0 [pH] Normal <8.5 [facility] Comment on above: Order Comment: Speci men Type: URINE SPECIMENOrdering Facility: [facility] Address: [address] [place] [address] Performed By: #### 2 4356-8 ####[facility] LABCLIA [id number] [place] [address] [place] Protein (U) [Mass/Vol] Negative Normal Negative [facility] Comment on above: Order Comment: Speci men Type: URINE SPECIMENOrdering Facility: [facility] Address: [address] [place] [address] Performed By: #### 2 4356-8 ####[facility] LABCLIA [id number] [place] [address] [place] RBC LM.HPF (Urine sed) [#/Area] 0-2 /HPF Normal 0-2 /HPF [facility] Comment on above: Order Comment: Speci men Type: URINE SPECIMENOrdering Facility: [facility] Address: [address] [place] [address] Performed By: #### 2 4356-8 ####[facility] LABIA [id number] [place] [address] [place] Specific gravity (U) [Rel density] 1.014 Normal 1.005-1.030 [facility] Comment on above: Order Comment: Speci men Type: URINE SPECIMENOrdering Facility: [facility] Address: [address] [place] [address] Performed By: #### 2 4356-8 ####[facility] LABCLIA [id number] [place] [address] [place] Urobilinogen Ql (U) 0.2 EU/dL Normal 0.2-1.0 EU/dL [facility] Comment on above: Order Comment: Speci men Type: URINE SPECIMENOrdering Facility: [facility] Address: [address] [place] [address] Performed By: #### 2 4356-8 ####[facility] LABCLIA [id number] [place] [address] [place] WBC LM.HPF (Urine sed) [#/Area] 0-5 /HPF Normal 0-5 /HPF [facility] Comment on above: Order Comment: Speci men Type: URINE SPECIMENOrdering Facility: [facility] Address: [address] [place] [address] Performed By: #### 2 4356-8 ####[facility] LABIA [id number] [place] [address] [place] CNOVon 12-04-2022 CNOV Normal [facility] HISTORY PHYSICALon 3 HISTORY PHYSICAL Normal [facility] Basic Metabolic Panelon 11-15 Anion gap [Moles/Vol] 10 mmol/L Normal 9-15 [facility] Comment on above: Performed By: #### L IPAS #### [facility] [address] [place] [address] Calcium [Mass/Vol] 8.4 mg/dL Low 8.5-9.9 [facility] Comment on above: Performed By: #### L IPAS #### [facility] [address] [place] [address] Chloride [Moles/Vol] 108 mmol/L Critically high 95-107 [facility] Comment on above: Performed By: #### L IPAS #### [facility] [address] [place] [address] CO2 [Moles/Vol] 23 mmol/L Normal 20-31 [facility] Comment on above: Performed By: #### L IPAS #### [facility] [address] [place] [address] Creatinine [Mass/Vol] 0.64 mg/dL Normal 0.50-0.90 [facility] Comment on above: Performed By: #### L IPAS #### [facility] [address] [place] [address] GFR >60.0 Normal >60 [facility] Comment on above: Result Comment: [...] secretion. Performed By: #### L IPAS #### [facility] [address] [place] [address] Glucose [Mass/Vol] 86 mg/dL Normal 70-99 [facility] Comment on above: Performed By: #### L IPAS #### [facility] [address] [place] [address] Potassium [Moles/Vol] 3.9 mmol/L Normal 3.4-4.9 [facility] Comment on above: Performed By: #### L IPAS #### [facility] [address] [place] [address] Sodium [Moles/Vol] 141 mmol/L Normal 135-144 [facility] Comment on above: Performed By: #### L IPAS #### [facility] [address] [place] [address] Urea nitrogen [Mass/Vol] 14 mg/dL Normal 6-20 [facility] Comment on above: Performed By: #### L IPAS #### [facility] [address] [place] [address] CBC With Platelet and Differ entialon 12-03-2022 Basophils (Bld) [#/Vol] 0.0 10*3/uL Normal 0.0-0.2 [facility] Comment on above: Performed By: #### C BCWD #### [facility] [address] [place] [address] Basophils/100 WBC (Bld) 0.9 % Normal [facility] Comment on above: Performed By: #### C BCWD #### [facility] [address] [place] [address] Eosinophils (Bld) [#/Vol] 0.2 10*3/uL Normal 0.0-0.7 [facility] Comment on above: Performed By: #### C BCWD #### [facility] [address] [place] [address] Eosinophils/100 WBC (Bld) 5.2 % Normal [facility] Comment on above: Performed By: #### C BCWD #### [facility] [address] [place] [address] Erythrocyte distribution width (RBC) [Ratio] 13.2 % Normal 11.5-14.5 [facility] Comment on above: Performed By: #### C BCWD #### [facility] [address] [place] [address] Hematocrit (Bld) [Volume fraction] 35.9 % Low 37.0-47.0 [facility] Comment on above: Performed By: #### C BCWD #### [facility] [address] [place] [address] Hemoglobin (Bld) [Mass/Vol] 12.3 g/dL Normal 12.0-16.0 [facility] Comment on above: Performed By: #### C BCWD #### [facility] [address] [place] [address] Lymphocytes (Bld) [#/Vol] 1.3 10*3/uL Normal 1.0-4.8 [facility] Comment on above: Performed By: #### C BCWD #### [facility] [address] [place] [address] Lymphocytes/100 WBC (Bld) 38.2 % Normal [facility] Comment on above: Performed By: #### C BCWD #### [facility] [address] [place] [address] MCH (RBC) [Entitic mass] 30.8 pg Normal 27.0-31.3 [facility] Comment on above: Performed By: #### C BCWD #### [facility] [address] [place] [address] MCHC 34.3 % Normal 33.0-37.0 [facility] Comment on above: Performed By: #### C BCWD #### [facility] [address] [place] [address] MCV (RBC) [Entitic vol] 89.8 fL Normal 79.4-94.8 [facility] Comment on above: Performed By: #### C BCWD #### [facility] [address] [place] [address] Monocytes (Bld) [#/Vol] 0.4 10*3/uL Normal 0.2-0.8 [facility] Comment on above: Performed By: #### C BCWD #### [facility] [address] [place] [address] Monocytes/100 WBC (Bld) 10.9 % Normal [facility] Comment on above: Performed By: #### C BCWD #### [facility] [address] [place] [address] Neutrophils (Bld) [#/Vol] 1.5 10*3/uL Normal 1.4-6.5 [facility] Comment on above: Performed By: #### C BCWD #### [facility] [address] [place] [address] Neutrophils/100 WBC (Bld) 44.5 % Normal [facility] Comment on above: Performed By: #### C BCWD #### [facility] [address] [place] [address] Platelets (Bld) [#/Vol] 204 10*3/uL Normal 130-400 [facility] Comment on above: Performed By: #### C BCWD #### [facility] [address] [place] [address] RBC (Bld) [#/Vol] 4.00 10*6/uL Low 4.20-5.40 [facility] Comment on above: Performed By: #### C BCWD #### [facility] [address] [place] [address] WBC (Bld) [#/Vol] 3.3 10*3/uL Low 4.8-10.8 [facility] Comment on above: Performed By: #### C BCWD #### [facility] [address] [place] [address] Basophils (Bld) [#/Vol] 0.0 10*3/uL Normal 0.0-0.2 [facility] Comment on above: Performed By: #### P GLU #### [facility] [address] [place] [address] Basophils/100 WBC (Bld) 0.7 % Normal [facility] Comment on above: Performed By: #### P GLU #### [facility] [address] [place] [address] Eosinophils (Bld) [#/Vol] 0.2 10*3/uL Normal 0.0-0.7 [facility] Comment on above: Performed By: #### P GLU #### [facility] [address] [place] [address] Eosinophils/100 WBC (Bld) 5.9 % Normal [facility] Comment on above: Performed By: #### P GLU #### [facility] [address] [place] [address] Erythrocyte distribution width (RBC) [Ratio] 13.5 % Normal 11.5-14.5 [facility] Comment on above: Performed By: #### P GLU #### [facility] [address] [place] [address] Hematocrit (Bld) [Volume fraction] 33.2 % Low 37.0-47.0 [facility] Comment on above: Performed By: #### P GLU #### [facility] [address] [place] [address] Hemoglobin (Bld) [Mass/Vol] 11.8 g/dL Low 12.0-16.0 [facility] Comment on above: Performed By: #### P GLU #### [facility] [address] [place] [address] Lymphocytes (Bld) [#/Vol] 1.1 10*3/uL Normal 1.0-4.8 [facility] Comment on above: Performed By: #### P GLU #### [facility] [address] [place] [address] Lymphocytes/100 WBC (Bld) 39.5 % Normal [facility] Comment on above: Performed By: #### P GLU #### [facility] [address] [place] [address] MCH (RBC) [Entitic mass] 34.0 pg Critically high 27.0-31.3 [facility] Comment on above: Performed By: #### P GLU #### [facility] [address] [place] [address] MCHC 35.5 % Normal 33.0-37.0 [facility] Comment on above: Performed By: #### P GLU #### [facility] [address] [place] [address] MCV (RBC) [Entitic vol] 95.7 fL Critically high 79.4-94.8 [facility] Comment on above: Performed By: #### P GLU #### [facility] [address] [place] [address] Monocytes (Bld) [#/Vol] 0.3 10*3/uL Normal 0.2-0.8 [facility] Comment on above: Performed By: #### P GLU #### [facility] [address] [place] [address] Monocytes/100 WBC (Bld) 9.1 % Normal [facility] Comment on above: Performed By: #### P GLU #### [facility] [address] [place] [address] Neutrophils (Bld) [#/Vol] 1.3 10*3/uL Low 1.4-6.5 [facility] Comment on above: Performed By: #### P GLU #### [facility] [address] [place] [address] Neutrophils/100 WBC (Bld) 44.5 % Normal [facility] Comment on above: Performed By: #### P GLU #### [facility] [address] [place] [address] Platelets (Bld) [#/Vol] 186 10*3/uL Normal 130-400 [facility] Comment on above: Performed By: #### P GLU #### [facility] [address] [place] [address] RBC (Bld) [#/Vol] 3.47 10*6/uL Low 4.20-5.40 [facility] Comment on above: Performed By: #### P GLU #### [facility] [address] [place] [address] WBC (Bld) [#/Vol] 2.9 10*3/uL Low 4.8-10.8 [facility] Comment on above: Performed By: #### P GLU #### [facility] [address] [place] [address] CNPNon 12-03-2022 CNPN Normal [facility] Magnesiumon 12-03-2022 Magnesium [Mass/Vol] 1.8 mg/dL Normal 1.7-2.4 [facility] Comment on above: Performed By: #### L IPAS #### [facility] [address] [place] [address] POCT Glucoseon 12-03-2022 Glucose [Mass/Vol] 90 mg/dL Normal 70-99 [facility] Comment on above: Performed By: #### P GLU #### [facility] [address] [place] [address] POC Performed on ACCU-CHEK Normal [facility] Comment on above: Performed By: #### P GLU #### [facility] [address] [place] [address] Glucose [Mass/Vol] 101 mg/dL Critically high 70-99 [facility] Comment on above: Performed By: #### L IPAS #### [facility] [address] [place] [address] POC Performed on ACCU-CHEK Normal [facility] Comment on above: Performed By: #### L IPAS #### [facility] [address] [place] [address] Phosphoruson 12-03-2022 Phosphate [Mass/Vol] 3.6 mg/dL Normal 2.3-4.8 [facility] Comment on above: Performed By: #### L IPAS #### [facility] [address] [place] [address] Basic Metabolic Panelon 11-15 Anion gap [Moles/Vol] 6 mmol/L Low 9-15 [facility] Comment on above: Performed By: #### C BCWD #### [facility] [address] [place] [address] Calcium [Mass/Vol] 8.4 mg/dL Low 8.5-9.9 [facility] Comment on above: Performed By: #### C BCWD #### [facility] [address] [place] [address] Chloride [Moles/Vol] 107 mmol/L Normal 95-107 [facility] Comment on above: Performed By: #### C BCWD #### [facility] [address] [place] [address] CO2 [Moles/Vol] 25 mmol/L Normal 20-31 [facility] Comment on above: Performed By: #### C BCWD #### [facility] [address] [place] [address] Creatinine [Mass/Vol] 0.57 mg/dL Normal 0.50-0.90 [facility] Comment on above: Performed By: #### C BCWD #### [facility] [address] [place] [address] GFR >60.0 Normal >60 [facility] Comment on above: Result Comment: [...] secretion. Performed By: #### C BCWD #### [facility] [address] [place] [address] Glucose [Mass/Vol] 104 mg/dL Critically high 70-99 [facility] Comment on above: Performed By: #### C BCWD #### [facility] [address] [place] [address] Potassium [Moles/Vol] 4.0 mmol/L Normal 3.4-4.9 [facility] Comment on above: Performed By: #### C BCWD #### [facility] [address] [place] [address] Sodium [Moles/Vol] 138 mmol/L Normal 135-144 [facility] Comment on above: Performed By: #### C BCWD #### [facility] [address] [place] [address] Urea nitrogen [Mass/Vol] 12 mg/dL Normal 6-20 [facility] Comment on above: Performed By: #### C BCWD #### [facility] [address] [place] [address] CBC With Platelet and Differ entialon 12-02-2022 Anisocytosis Ql (Bld) 1+ Normal [facility] Comment on above: Performed By: #### C BCWD #### [facility] [address] [place] [address] Basophils (Bld) [#/Vol] 0.0 10*3/uL Normal 0.0-0.2 [facility] Comment on above: Performed By: #### C BCWD #### [facility] [address] [place] [address] Basophils/100 WBC (Bld) 1.0 % Normal [facility] Comment on above: Performed By: #### C BCWD #### [facility] [address] [place] [address] Eosinophils (Bld) [#/Vol] 0.2 10*3/uL Normal 0.0-0.7 [facility] Comment on above: Performed By: #### C BCWD #### [facility] [address] [place] [address] Eosinophils/100 WBC (Bld) 9.0 % Normal [facility] Comment on above: Performed By: #### C BCWD #### [facility] [address] [place] [address] Lymphocytes (Bld) [#/Vol] 0.9 10*3/uL Low 1.0-4.8 [facility] Comment on above: Performed By: #### C BCWD #### [facility] [address] [place] [address] Lymphocytes/100 WBC (Bld) 35.0 % Normal [facility] Comment on above: Performed By: #### C BCWD #### [facility] [address] [place] [address] Monocytes (Bld) [#/Vol] 0.1 10*3/uL Low 0.2-0.8 [facility] Comment on above: Performed By: #### C BCWD #### [facility] [address] [place] [address] Monocytes/100 WBC (Bld) 4.6 % Normal [facility] Comment on above: Performed By: #### C BCWD #### [facility] [address] [place] [address] Neutrophils (Bld) [#/Vol] 1.4 10*3/uL Normal 1.4-6.5 [facility] Comment on above: Performed By: #### C BCWD #### [facility] [address] [place] [address] Neutrophils/100 WBC (Bld) 50.0 % Normal [facility] Comment on above: Performed By: #### C BCWD #### [facility] [address] [place] [address] Ovalocytes 1+ Normal [facility] Comment on above: Performed By: #### C BCWD #### [facility] [address] [place] [address] Poikilocytosis 1+ Normal [facility] Comment on above: Performed By: #### C BCWD #### [facility] [address] [place] [address] Erythrocyte distribution width (RBC) [Ratio] 13.3 % Normal 11.5-14.5 [facility] Comment on above: Performed By: #### C BCWD #### [facility] [address] [place] [address] Hematocrit (Bld) [Volume fraction] 34.0 % Low 37.0-47.0 [facility] Comment on above: Performed By: #### C BCWD #### [facility] [address] [place] [address] Hemoglobin (Bld) [Mass/Vol] 11.8 g/dL Low 12.0-16.0 [facility] Comment on above: Performed By: #### C BCWD #### [facility] [address] [place] [address] MCH (RBC) [Entitic mass] 31.3 pg Normal 27.0-31.3 [facility] Comment on above: Performed By: #### C BCWD #### [facility] [address] [place] [address] MCHC 34.7 % Normal 33.0-37.0 [facility] Comment on above: Performed By: #### C BCWD #### [facility] [address] [place] [address] MCV (RBC) [Entitic vol] 90.2 fL Normal 79.4-94.8 [facility] Comment on above: Performed By: #### C BCWD #### [facility] [address] [place] [address] Platelets (Bld) [#/Vol] 201 10*3/uL Normal 130-400 [facility] Comment on above: Performed By: #### C BCWD #### [facility] [address] [place] [address] RBC (Bld) [#/Vol] 3.77 10*6/uL Low 4.20-5.40 [facility] Comment on above: Performed By: #### C BCWD #### [facility] [address] [place] [address] WBC (Bld) [#/Vol] 2.7 10*3/uL Low 4.8-10.8 [facility] Comment on above: Performed By: #### C BCWD #### [facility] [address] [place] [address] Magnesiumon 12-02-2022 Magnesium [Mass/Vol] 1.9 mg/dL Normal 1.7-2.4 [facility] Comment on above: Performed By: #### C BCWD #### [facility] [address] [place] [address] POCT Glucoseon 12-02-2022 Glucose [Mass/Vol] 115 mg/dL Critically high 70-99 [facility] Comment on above: Performed By: #### P GLU #### [facility] [address] [place] [address] POC Performed on ACCU-CHEK Normal [facility] Comment on above: Performed By: #### P GLU #### [facility] [address] [place] [address] Glucose [Mass/Vol] 94 mg/dL Normal 70-99 [facility] Comment on above: Performed By: #### P GLU #### [facility] [address] [place] [address] POC Performed on ACCU-CHEK [facility] Comment on above: Performed By: #### P GLU #### [facility] [address] [place] [address] Glucose [Mass/Vol] 94 mg/dL Normal 70-99 [facility] Comment on above: Performed By: #### P GLU #### [facility] [address] [place] [address] POC Performed on ACCU-CHEK Normal [facility] Comment on above: Performed By: #### P GLU #### [facility] [address] [place] [address] Phosphoruson 12-02-2022 Phosphate [Mass/Vol] 3.7 mg/dL Normal 2.3-4.8 [facility] Comment on above: Performed By: #### P GLU #### [facility] [address] [place] [address] CNPNon 12-01-2022 CNPN Normal [facility] Metabolic Pane nestor 12-01-2022 Albumin [Mass/Vol] 3.7 g/dL Normal 3.5-4.6 [facility] Comment on above: Performed By: #### C BCWD #### [facility] [address] [place] [address] ALP [Catalytic activity/Vol] 62 U/L Normal 40-130 [facility] Comment on above: Performed By: #### C BCWD #### [facility] [address] [place] [address] ALT [Catalytic activity/Vol] 16 U/L Normal 0-33 [facility] Comment on above: Performed By: #### C BCWD #### [facility] [address] [place] [address] Anion gap [Moles/Vol] 7 mmol/L Low 9-15 [facility] Comment on above: Performed By: #### C BCWD #### [facility] [address] [place] [address] AST [Catalytic activity/Vol] 30 U/L Normal 0-35 [facility] Comment on above: Performed By: #### C BCWD #### [facility] [address] [place] [address] Bilirubin [Mass/Vol] 0.3 mg/dL Normal 0.2-0.7 [facility] Comment on above: Performed By: #### C BCWD #### [facility] [address] [place] [address] Calcium [Mass/Vol] 8.3 mg/dL Low 8.5-9.9 [facility] Comment on above: Performed By: #### C BCWD #### [facility] [address] [place] [address] Chloride [Moles/Vol] 106 mmol/L Normal 95-107 [facility] Comment on above: Performed By: #### C BCWD #### [facility] [address] [place] [address] CO2 [Moles/Vol] 23 mmol/L Normal 20-31 [facility] Comment on above: Performed By: #### C BCWD #### [facility] [address] [place] [address] Creatinine [Mass/Vol] 0.66 mg/dL Normal 0.50-0.90 [facility] Comment on above: Performed By: #### C BCWD #### [facility] [address] [place] [address] GFR >60.0 Normal >60 [facility] Comment on above: Result Comment: [...] secretion. Performed By: #### C BCWD #### [facility] [address] [place] [address] Globulin (S) [Mass/Vol] 2.1 g/dL Low 2.3-3.5 [facility] Comment on above: Performed By: #### C BCWD #### [facility] [address] [place] [address] Glucose [Mass/Vol] 104 mg/dL Critically high 70-99 [facility] Comment on above: Performed By: #### C BCWD #### [facility] [address] [place] [address] Potassium [Moles/Vol] 3.9 mmol/L Normal 3.4-4.9 [facility] Comment on above: Performed By: #### C BCWD #### [facility] [address] [place] [address] Protein [Mass/Vol] 5.8 g/dL Low 6.3-8.0 [facility] Comment on above: Performed By: #### C BCWD #### [facility] [address] [place] [address] Sodium [Moles/Vol] 136 mmol/L Normal 135-144 [facility] Comment on above: Performed By: #### C BCWD #### [facility] [address] [place] [address] Urea nitrogen [Mass/Vol] 6 mg/dL Normal 6-20 [facility] Comment on above: Performed By: #### C BCWD #### [facility] [address] [place] [address] Magnesiumon 12-01-2022 Magnesium [Mass/Vol] 2.0 mg/dL Normal 1.7-2.4 [facility] Comment on above: Performed By: #### C BCWD #### [facility] [address] [place] [address] POCT Glucoseon 12-01-2022 Glucose [Mass/Vol] 113 mg/dL Critically high 70-99 [facility] [facility] Comment on above: Performed By: #### P GLU #### [facility] [address] [place] [address] POC Performed on ACCU-CHEK Normal [facility] Comment on above: Result Comment: Robby meneses RN or Performed By: #### P GLU #### [facility] [address] [place] [address] Phosphoruson 12-01-2022 Phosphate [Mass/Vol] 3.7 mg/dL Normal 2.3-4.8 [facility] Comment on above: Performed By: #### P GLU #### [facility] [address] [place] [address] Triglycerideson 12-01-2022 Triglyceride [Mass/Vol] 111 mg/dL Normal 0-150 [facility] Comment on above: Result Comment: ATP III Triglycerides Classification is Normal. Performed By: #### T RIG #### [facility] [address] [place] [address] Comprehensive Metabolic Pane nestor 11-30-2022 Albumin [Mass/Vol] 3.5 g/dL Normal 3.5-4.6 [facility] Comment on above: Performed By: #### C BCWD #### [facility] [address] [place] [address] ALP [Catalytic activity/Vol] 45 U/L Normal 40-130 [facility] Comment on above: Performed By: #### C BCWD #### [facility] [address] [place] [address] ALT [Catalytic activity/Vol] 15 U/L Normal 0-33 [facility] Comment on above: Result Comment: Spec imen hemolysis has exceeded the interference as defined by Kamran. Result may be affected. Suggest recollection if clinically indicated. Performed By: #### C BCWD #### [facility] [address] [place] [address] Anion gap [Moles/Vol] 6 mmol/L Low 9-15 [facility] Comment on above: Performed By: #### C BCWD #### [facility] [address] [place] [address] AST [Catalytic activity/Vol] 40 U/L Critically high 0-35 [facility] Comment on above: Result Comment: Spec imen hemolysis has exceeded the interference as defined by Kamran. Value may be falsely increased. Suggest recollection if clinically indicated. Performed By: #### C BCWD #### [facility] [address] [place] [address] Bilirubin [Mass/Vol] 0.3 mg/dL Normal 0.2-0.7 [facility] Comment on above: Performed By: #### C BCWD #### [facility] [address] [place] [address] Calcium [Mass/Vol] 8.3 mg/dL Low 8.5-9.9 [facility] Comment on above: Performed By: #### C BCWD #### [facility] [address] [place] [address] Chloride [Moles/Vol] 107 mmol/L Normal 95-107 [facility] Comment on above: Performed By: #### C BCWD #### [facility] [address] [place] [address] CO2 [Moles/Vol] 23 mmol/L Normal 20-31 [facility] Comment on above: Performed By: #### C BCWD #### [facility] [address] [place] [address] Creatinine [Mass/Vol] 0.69 mg/dL Normal 0.50-0.90 [facility] Comment on above: Performed By: #### C BCWD #### [facility] [address] [place] [address] GFR >60.0 Normal >60 [facility] Comment on above: Result Comment: [...] secretion. Performed By: #### C BCWD #### [facility] [address] [place] [address] Globulin (S) [Mass/Vol] 1.9 g/dL Low 2.3-3.5 [facility] Comment on above: Performed By: #### C BCWD #### [facility] [address] [place] [address] Glucose [Mass/Vol] 86 mg/dL Normal 70-99 [facility] Comment on above: Performed By: #### C BCWD #### [facility] [address] [place] [address] Potassium [Moles/Vol] 4.6 mmol/L Normal 3.4-4.9 [facility] Comment on above: Result Comment: Spec imen hemolysis has exceeded the interference as defined by Kamrna. Value may be falsely increased. Suggest recollection if clinically indicated. Performed By: #### C BCWD #### [facility] [address] [place] [address] Protein [Mass/Vol] 5.4 g/dL Low 6.3-8.0 [facility] Comment on above: Performed By: #### C BCWD #### [facility] [address] [place] [address] Sodium [Moles/Vol] 136 mmol/L Normal 135-144 [facility] Comment on above: Performed By: #### C BCWD #### [facility] [address] [place] [address] Urea nitrogen [Mass/Vol] 4 mg/dL Low 6-20 [facility] Comment on above: Performed By: #### C BCWD #### [facility] [address] [place] [address] IR PICC WO SQ PORT/PUMP > 5 [...] caps and surgical masks. In addition, the batching operator and assistant site manager donned sterile gowns and gloves after [...] sheath was placed over the guidewire. A 5-Ghanaian dual-lumen PICC was advanced through the sheath, [...] PICC PLACEMENT WITHOUT IMMEDIATE COMPLICATIONS. Interpreted by: Danyell Billings MD Signed by: Danyell Billings MD 11/30/22 Final result Normal [facility] Magnesiumon 11-30-2022 Magnesium [Mass/Vol] 1.9 mg/dL Normal 1.7-2.4 [facility] Comment on above: Performed By: #### P GLU #### [facility] [address] [place] [address] Phosphoruson 11-30-2022 Phosphate [Mass/Vol] 3.2 mg/dL Normal 2.3-4.8 [facility] Comment on above: Performed By: #### C BCWD #### [facility] [address] [place] [address] CBC With Platelet and Differ entialon 11-29-2022 Basophils (Bld) [#/Vol] 0.0 10*3/uL Normal 0.0-0.2 [facility] Comment on above: Performed By: #### P GLU #### [facility] [address] [place] [address] Basophils/100 WBC (Bld) 0.6 % Normal [facility] Comment on above: Performed By: #### P GLU #### [facility] [address] [place] [address] Eosinophils (Bld) [#/Vol] 0.1 10*3/uL Normal 0.0-0.7 [facility] Comment on above: Performed By: #### P GLU #### [facility] [address] [place] [address] Eosinophils/100 WBC (Bld) 4.4 % Normal [facility] Comment on above: Performed By: #### P GLU #### [facility] [address] [place] [address] Erythrocyte distribution width (RBC) [Ratio] 13.6 % Normal 11.5-14.5 [facility] Comment on above: Performed By: #### P GLU #### [facility] [address] [place] [address] Hematocrit (Bld) [Volume fraction] 36.4 % Low 37.0-47.0 [facility] Comment on above: Performed By: #### P GLU #### [facility] [address] [place] [address] Hemoglobin (Bld) [Mass/Vol] 12.2 g/dL Normal 12.0-16.0 [facility] Comment on above: Performed By: #### P GLU #### [facility] [address] [place] [address] Lymphocytes (Bld) [#/Vol] 1.3 10*3/uL Normal 1.0-4.8 [facility] Comment on above: Performed By: #### P GLU #### [facility] [address] [place] [address] Lymphocytes/100 WBC (Bld) 41.0 % Normal [facility] Comment on above: Performed By: #### P GLU #### [facility] [address] [place] [address] MCH (RBC) [Entitic mass] 30.9 pg Normal 27.0-31.3 [facility] Comment on above: Performed By: #### P GLU #### [facility] [address] [place] [address] MCHC 33.5 % Normal 33.0-37.0 [facility] Comment on above: Performed By: #### P GLU #### [facility] [address] [place] [address] MCV (RBC) [Entitic vol] 92.2 fL Normal 79.4-94.8 [facility] Comment on above: Performed By: #### P GLU #### [facility] [address] [place] [address] Monocytes (Bld) [#/Vol] 0.3 10*3/uL Normal 0.2-0.8 [facility] Comment on above: Performed By: #### P GLU #### [facility] [address] [place] [address] Monocytes/100 WBC (Bld) 9.8 % Normal [facility] Comment on above: Performed By: #### P GLU #### [facility] [address] [place] [address] Neutrophils (Bld) [#/Vol] 1.4 10*3/uL Normal 1.4-6.5 [facility] Comment on above: Performed By: #### P GLU #### [facility] [address] [place] [address] Neutrophils/100 WBC (Bld) 44.2 % Normal [facility] Comment on above: Performed By: #### P GLU #### [facility] [address] [place] [address] Platelets (Bld) [#/Vol] 242 10*3/uL Normal 130-400 [facility] Comment on above: Performed By: #### P GLU #### [facility] [address] [place] [address] RBC (Bld) [#/Vol] 3.95 10*6/uL Low 4.20-5.40 [facility] Comment on above: Performed By: #### P GLU #### [facility] [address] [place] [address] WBC (Bld) [#/Vol] 3.2 10*3/uL Low 4.8-10.8 [facility] Comment on above: Performed By: #### P GLU #### [facility] [address] [place] [address] Comprehensive Metabolic Pane nestor 11-29-2022 Albumin [Mass/Vol] 3.5 g/dL Normal 3.5-4.6 [facility] Comment on above: Performed By: #### P GLU #### [facility] [address] [place] [address] ALP [Catalytic activity/Vol] 60 U/L Normal 40-130 [facility] Comment on above: Performed By: #### P GLU #### [facility] [address] [place] [address] ALT [Catalytic activity/Vol] 15 U/L Normal 0-33 [facility] Comment on above: Performed By: #### P GLU #### [facility] [address] [place] [address] Anion gap [Moles/Vol] 8 mmol/L Low 9-15 [facility] Comment on above: Performed By: #### P GLU #### [facility] [address] [place] [address] AST [Catalytic activity/Vol] 28 U/L Normal 0-35 [facility] Comment on above: Performed By: #### P GLU #### [facility] [address] [place] [address] Bilirubin [Mass/Vol] mg/dL Normal 0.2-0.7 [facility] Comment on above: Performed By: #### P GLU #### [facility] [address] [place] [address] Calcium [Mass/Vol] 8.4 mg/dL Low 8.5-9.9 [facility] Comment on above: Performed By: #### P GLU #### [facility] [address] [place] [address] Chloride [Moles/Vol] 113 mmol/L Critically high 95-107 [facility] Comment on above: Performed By: #### P GLU #### [facility] [address] [place] [address] CO2 [Moles/Vol] 23 mmol/L Normal 20-31 [facility] Comment on above: Performed By: #### P GLU #### [facility] [address] [place] [address] Creatinine [Mass/Vol] 0.71 mg/dL Normal 0.50-0.90 [facility] Comment on above: Performed By: #### P GLU #### [facility] [address] [place] [address] GFR >60.0 Normal >60 [facility] Comment on above: Result Comment: [...] secretion. Performed By: #### P GLU #### [facility] [address] [place] [address] Globulin (S) [Mass/Vol] 2.2 g/dL Low 2.3-3.5 [facility] Comment on above: Performed By: #### P GLU #### [facility] [address] [place] [address] Glucose [Mass/Vol] 85 mg/dL Normal 70-99 [facility] Comment on above: Performed By: #### P GLU #### [facility] [address] [place] [address] Potassium [Moles/Vol] 4.2 mmol/L Normal 3.4-4.9 [facility] Comment on above: Performed By: #### P GLU #### [facility] [address] [place] [address] Protein [Mass/Vol] 5.7 g/dL Low 6.3-8.0 [facility] Comment on above: Performed By: #### P GLU #### [facility] [address] [place] [address] Sodium [Moles/Vol] 144 mmol/L Normal 135-144 [facility] Comment on above: Performed By: #### P GLU #### [facility] [address] [place] [address] Urea nitrogen [Mass/Vol] 5 mg/dL Low 6-20 [facility] Comment on above: Performed By: #### P GLU #### [facility] [address] [place] [address] Lactic Acidon 11-29-2022 Lactate [Moles/Vol] 0.9 mmol/L Normal 0.5-2.2 [facility] Comment on above: Performed By: #### L IPAS #### [facility] [address] [place] [address] Lipaseon 11-29-2022 Lipase [Catalytic activity/Vol] 48 U/L Normal 12-95 [facility] Comment on above: Performed By: #### L IPAS #### [facility] [address] [place] [address] Magnesiumon 11-29-2022 Magnesium [Mass/Vol] 1.9 mg/dL Normal 1.7-2.4 [facility] Comment on above: Performed By: #### P GLU #### [facility] [address] [place] [address] Partial Thromboplastin Timeo n 11-29-2022 aPTT Coag (Bld) [Time] 33.0 s Normal 24.4-36.8 [facility] Comment on above: Result Comment: Effe ctive 12/20/2019: Heparin Therapeutic Range: 64.0 ? 98.0 seconds. Performed By: #### C BCWD #### [facility] [address] [place] [address] Phosphoruson 11-29-2022 Phosphate [Mass/Vol] 3.3 mg/dL Normal 2.3-4.8 [facility] Comment on above: Performed By: #### C BCWD #### [facility] [address] [place] [address] Prothrombin Timeon INR Coag (PPP) [Relative time] 1.2 {INR} Normal [facility] Comment on above: Performed By: #### P T #### [facility] [address] [place] [address] PT Coag (PPP) [Time] 15.6 s Critically high 12.3-14.9 [facility] Comment on above: Performed By: #### P T #### [facility] [address] [place] [address] Prealbuminon 11-28-2022 Prealbumin [Mass/Vol] 15.0 mg/dL Low 20.0-40.0 [facility] Comment on above: Order Comment: Colle ction has been rescheduled by DUEAS at 11/28/2022 18:15 Reason:Failed attempt at venipuncture Performed By: #### L IPAS #### [facility] [address] [place] [address] Amylaseon 11-27-2022 Amylase [Catalytic activity/Vol] 44 U/L Normal 22-93 [facility] Comment on above: Performed By: #### P GLU #### [facility] [address] [place] [address] CBC With Platelet and Differ entialon 11-27-2022 Basophils (Bld) [#/Vol] 0.0 10*3/uL Normal 0.0-0.2 [facility] Comment on above: Performed By: #### P GLU #### [facility] [address] [place] [address] Basophils/100 WBC (Bld) 0.7 % Normal [facility] Comment on above: Performed By: #### P GLU #### [facility] [address] [place] [address] Eosinophils (Bld) [#/Vol] 0.1 10*3/uL Normal 0.0-0.7 [facility] Comment on above: Performed By: #### P GLU #### [facility] [address] [place] [address] Eosinophils/100 WBC (Bld) 1.4 % Normal [facility] Comment on above: Performed By: #### P GLU #### [facility] [address] [place] [address] Erythrocyte distribution width (RBC) [Ratio] 13.3 % Normal 11.5-14.5 [facility] Comment on above: Performed By: #### P GLU #### [facility] [address] [place] [address] Hematocrit (Bld) [Volume fraction] 38.0 % Normal 37.0-47.0 [facility] Comment on above: Performed By: #### P GLU #### [facility] [address] [place] [address] Hemoglobin (Bld) [Mass/Vol] 12.7 g/dL Normal 12.0-16.0 [facility] Comment on above: Performed By: #### P GLU #### [facility] [address] [place] [address] Lymphocytes (Bld) [#/Vol] 1.4 10*3/uL Normal 1.0-4.8 [facility] Comment on above: Performed By: #### P GLU #### [facility] [address] [place] [address] Lymphocytes/100 WBC (Bld) 32.1 % Normal [facility] Comment on above: Performed By: #### P GLU #### [facility] [address] [place] [address] MCH (RBC) [Entitic mass] 30.6 pg Normal 27.0-31.3 [facility] Comment on above: Performed By: #### P GLU #### [facility] [address] [place] [address] MCHC 33.4 % Normal 33.0-37.0 [facility] Comment on above: Performed By: #### P GLU #### [facility] [address] [place] [address] MCV (RBC) [Entitic vol] 91.6 fL Normal 79.4-94.8 [facility] Comment on above: Performed By: #### P GLU #### [facility] [address] [place] [address] Monocytes (Bld) [#/Vol] 0.3 10*3/uL Normal 0.2-0.8 [facility] Comment on above: Performed By: #### P GLU #### [facility] [address] [place] [address] Monocytes/100 WBC (Bld) 6.0 % Normal [facility] Comment on above: Performed By: #### P GLU #### [facility] [address] [place] [address] Neutrophils (Bld) [#/Vol] 2.6 10*3/uL Normal 1.4-6.5 [facility] Comment on above: Performed By: #### P GLU #### [facility] [address] [place] [address] Neutrophils/100 WBC (Bld) 59.6 % Normal [facility] Comment on above: Performed By: #### P GLU #### [facility] [address] [place] [address] Platelets (Bld) [#/Vol] 238 10*3/uL Normal 130-400 [facility] Comment on above: Performed By: #### P GLU #### [facility] [address] [place] [address] RBC (Bld) [#/Vol] 4.15 10*6/uL Low 4.20-5.40 [facility] Comment on above: Performed By: #### P GLU #### [facility] [address] [place] [address] WBC (Bld) [#/Vol] 4.4 10*3/uL Low 4.8-10.8 [facility] Comment on above: Performed By: #### P GLU #### [facility] [address] [place] [address] [address] ABDOMEN PELVIS W IV CONTR Daljit [...] Iker Ayala MD 11/27/22 Final result Normal [facility] CTA CHEST W WO CONTRASTon [...] Jason Mcrae MD 11/27/22 Final result Normal [facility] Comprehensive Metabolic Pane nestor 11-27-2022 Albumin [Mass/Vol] 4.0 g/dL Normal 3.5-4.6 [facility] Comment on above: Performed By: #### P GLU #### [facility] [address] [place] [address] ALP [Catalytic activity/Vol] 60 U/L Normal 40-130 [facility] Comment on above: Performed By: #### P GLU #### [facility] [address] [place] [address] ALT [Catalytic activity/Vol] 20 U/L Normal 0-33 [facility] Comment on above: Performed By: #### P GLU #### [facility] [address] [place] [address] Anion gap [Moles/Vol] 10 mmol/L Normal 9-15 [facility] Comment on above: Performed By: #### P GLU #### [facility] [address] [place] [address] AST [Catalytic activity/Vol] 34 U/L Normal 0-35 [facility] Comment on above: Performed By: #### P GLU #### [facility] [address] [place] [address] Bilirubin [Mass/Vol] 0.4 mg/dL Normal 0.2-0.7 [facility] Comment on above: Performed By: #### P GLU #### [facility] [address] [place] [address] Calcium [Mass/Vol] 8.4 mg/dL Low 8.5-9.9 [facility] Comment on above: Performed By: #### P GLU #### [facility] [address] [place] [address] Chloride [Moles/Vol] 108 mmol/L Critically high 95-107 [facility] Comment on above: Performed By: #### P GLU #### [facility] [address] [place] [address] CO2 [Moles/Vol] 20 mmol/L Normal 20-31 [facility] Comment on above: Performed By: #### P GLU #### [facility] [address] [place] [address] Creatinine [Mass/Vol] 0.68 mg/dL Normal 0.50-0.90 [facility] Comment on above: Performed By: #### P GLU #### [facility] [address] [place] [address] GFR >60.0 Normal >60 [facility] Comment on above: Result Comment: [...] secretion. Performed By: #### P GLU #### [facility] [address] [place] [address] Globulin (S) [Mass/Vol] 2.3 g/dL Normal 2.3-3.5 [facility] Comment on above: Performed By: #### P GLU #### [facility] [address] [place] [address] Glucose [Mass/Vol] 82 mg/dL Normal 70-99 [facility] Comment on above: Performed By: #### P GLU #### [facility] [address] [place] [address] Potassium [Moles/Vol] 3.7 mmol/L Normal 3.4-4.9 [facility] Comment on above: Performed By: #### P GLU #### [facility] [address] [place] [address] Protein [Mass/Vol] 6.3 g/dL Normal 6.3-8.0 [facility] Comment on above: Performed By: #### P GLU #### [facility] [address] [place] [address] Sodium [Moles/Vol] 138 mmol/L Normal 135-144 [facility] Comment on above: Performed By: #### P GLU #### [facility] [address] [place] [address] Urea nitrogen [Mass/Vol] 8 mg/dL Normal 6-20 [facility] Comment on above: Performed By: #### P GLU #### [facility] [address] [place] [address] High Sensitivity Troponin To n 11-27-2022 High Sensitivity Troponin T <6 Normal 0-19 [facility] Comment on above: Result Comment: High Sensitivity Troponin values cannot be compared with other Troponin methodologies. Performed By: #### T RP5 #### [facility] [address] [place] [address] High Sensitivity Troponin T <6 Normal 0-19 [facility] Comment on above: Result Comment: High Sensitivity Troponin values cannot be compared with other Troponin methodologies. Performed By: #### P GLU #### [facility] [address] [place] [address] Lactic Acidon 11-27-2022 Lactate [Moles/Vol] 1.0 mmol/L Normal 0.5-2.2 [facility] Comment on above: Performed By: #### P GLU #### [facility] [address] [place] [address] Lipaseon 11-27-2022 Lipase [Catalytic activity/Vol] 37 U/L Normal 12-95 [facility] Comment on above: Performed By: #### P GLU #### [facility] [address] [place] [address] Magnesiumon 11-27-2022 Magnesium [Mass/Vol] 1.9 mg/dL Normal 1.7-2.4 [facility] Comment on above: Performed By: #### P GLU #### [facility] [address] [place] [address] POCT Venouson 11-27-2022 Creatinine [Mass/Vol] 0.9 mg/dL Normal 0.6-1.2 [facility] Comment on above: Performed By: #### L IPAS #### [facility] [address] [place] [address] GFR >60 Normal >60 [facility] Comment on above: Result Comment: [...] secretion. Performed By: #### L IPAS #### [facility] [address] [place] [address] POC Performed on SEE BELOW Normal [facility] Comment on above: Result Comment: Perf ormed on POC Performed By: #### L IPAS #### [facility] [address] [place] [address] POC Sample Type KIRA Normal [facility] Comment on above: Performed By: #### L IPAS #### [facility] [address] [place] [address] Urinalysis, reflex to cultur ryder 11-27-2022 Bilirubin Ql (U) Negative Normal Negative [facility] Comment on above: Performed By: #### P GLU #### [facility] [address] [place] [address] Clarity (U) Clear Normal Clear [facility] Comment on above: Performed By: #### P GLU #### [facility] [address] [place] [address] Color (U) Yellow Normal Straw/Guadalupe [facility] Comment on above: Performed By: #### P GLU #### [facility] [address] [place] [address] Glucose Ql (U) Negative Normal Negative [facility] Comment on above: Performed By: #### P GLU #### [facility] [address] [place] [address] Hemoglobin Ql (U) Negative Normal Negative [facility] Comment on above: Performed By: #### P GLU #### [facility] [address] [place] [address] Ketones Ql (U) Negative Normal Negative [facility] Comment on above: Performed By: #### P GLU #### [facility] [address] [place] [address] Leukocyte esterase Test strip Ql (U) Negative Normal Negative [facility] Comment on above: Performed By: #### P GLU #### [facility] [address] [place] [address] Nitrite Ql (U) Negative Normal Negative [facility] Comment on above: Performed By: #### P GLU #### [facility] [address] [place] [address] pH (U) 7.5 [pH] Normal 5.0-9.0 [facility] Comment on above: Performed By: #### P GLU #### [facility] [address] [place] [address] Protein Ql (U) Negative Normal Negative [facility] Comment on above: Performed By: #### P GLU #### [facility] [address] [place] [address] Specific gravity (U) [Rel density] 1.026 Normal 1.005-1.03 [facility] Comment on above: Performed By: #### P GLU #### [facility] [address] [place] [address] Urine Reflexed to Culture Not Indicated Normal [facility] Comment on above: Performed By: #### P GLU #### [facility] [address] [place] [address] Urobilinogen Qn (U) 0.2 {Munir'U}/dL Normal < 2.0 [facility] Comment on above: Performed By: #### P GLU #### [facility] [address] [place] [address] CNNURSEon 11-26-2022 CNNURSE Normal [facility] US MESENTERIC ARTERY CMPLT V LABon 11-26-2022 US MESENTERIC ARTERY CMPLT VAS LAB Normal [facility] Ambulatory Visit Summaryon 1 Ambulatory Visit Summary Normal [address] [place] [address]- \.br\ Medications\.br\ What How Much When Why [...] hours as needed for Pain Pickup at [facility]/pharmacy #[id number]\.br\ Pharmacy Information\.br\ [facility]/pharmacy #[id number]: [address], [place] [id number] [phone]\.br\ Allergies\.br\ NSAIDs (Unknown)\.br\ codeine (unknown)\.br\ Problems\.br\ Ongoing [...] Metabolic syndrome\.br\ PCOS- polycystic ovary syndrome\.br\ \.br\ [facility] CNPNon 11-25-2022 CNPN Normal [facility] Office/Clini c Noteon 11-25-2022 Family Medicine Office/Clinic Note Normal [facility] Comment on above: Result Comment: Elec tronically Signed By: Jaquan Paula\.br\Date and Time Signed: 11/25/22 13:56 EDT Population Healthon 11-25-19 Population Health Normal [facility] Basic metabolic 2000 panelon 11-23-2022 Anion gap [Moles/Vol] 12 mmol/L Normal 11-02 [facility] Comment on above: Order Comment: Speci men Type: BLOOD SPECIMENOrdering Facility: [facility] Address: [address] [place] [address] Performed By: #### 2 4321-2, , 67433-0 ####[facility] LABORATORYCLIA [id number] [facility] [place] [address] [place] Calcium [Mass/Vol] 8.4 mg/dL Low 8.5-10.2 [facility] Comment on above: Order Comment: Speci men Type: BLOOD SPECIMENOrdering Facility: [facility] Address: [address] [place] [address] Performed By: #### 2 4321-2, , 01102-6 ####[facility] LABORATORYCLIA [id number] [place] [address] [place] Chloride [Moles/Vol] 107 mmol/L High 97-105 [facility] Comment on above: Order Comment: Speci men Type: BLOOD SPECIMENOrdering Facility: [facility] Address: [address] [place] [address] Performed By: #### 2 4321-2, , 52977-6 ####[facility] LABORATORYCLIA [id number] [place] [address] [place] CO2 [Moles/Vol] 19 mmol/L Low 22-30 [facility] Comment on above: Order Comment: Speci men Type: BLOOD SPECIMENOrdering Facility: [facility] Address: [address] [place] [address] Performed By: #### 2 4321-2, , ####[facility] LABORATORYCLIA [id number] [facility] [place] [address] [place] Creatinine [Mass/Vol] 0.71 mg/dL Normal 0.58-0.96 [facility] Comment on above: Order Comment: Speci men Type: BLOOD SPECIMENOrdering Facility: [facility] Address: [address] [place] [address] Performed By: #### 2 4321-2, , ####[facility] LABORATORYIA [id number] [place] [address] [place] Creatinine and Glomerular filtration rate.predicted panel (S/P/Bld) 115 mL/min/1.73m??? Normal >=60 [facility] Comment on above: Order Comment: [facility] Type: BLOOD SPECIMENOrdering Facility: [facility] Address: [address] [place] [address] Result Comment: Jessica mated Glomerular Filtration Rate [...] GFR. Performed By: #### 2 4321-2, , ####[facility] LABORATORYIA [id number] [place] [address] [place] Glucose [Mass/Vol] 105 mg/dL High 74-99 [facility] Comment on above: Order Comment: [facility] Type: BLOOD SPECIMENOrdering Facility: [facility] Address: [address] [place] [address] Result Comment: The [place] Diabetes Association (ADA) provides guidance for cutoff [...] Standards of Medical Care in Diabetes 2016, [place] [employer]. Diabetes Care. 2016.39(Suppl 1). Performed By: #### 2 4321-2, , 38514-9 ####[facility] LABORATORYCLIA [id number] [place] [address] [place] Potassium [Moles/Vol] 3.8 mmol/L Normal 3.7-5.1 [facility] Comment on above: Order Comment: Speci men Type: BLOOD SPECIMENOrdering Facility: [facility] Address: [address] [place] [address] Performed By: #### 2 432-2, , ####[facility]PITALIA [id number] [place] [address] [place] Sodium [Moles/Vol] 138 mmol/L Normal 136-144 [facility] Comment on above: Order Comment: Speci men Type: BLOOD SPECIMENOrdering Facility: [facility] Address: [address] [place] [address] Performed By: #### 2 4321-2, , ####[facility] LABORATORYCLIA [id number] [place] [address] [place] Urea nitrogen [Mass/Vol] 7 mg/dL Normal 7-21 [facility] Comment on above: Order Comment: Speci men Type: BLOOD SPECIMENOrdering Facility: [facility] Address: [address] [place] [address] Performed By: #### 2 4321-2, , 50243-1 ####[facility] LABORATORYCLIA [id number] [facility], [place] [id number] [place] [address] [place] CASE MGT INIT ASSESon 2022 CASE MGT INIT ASSES Normal [facility] CBC panel Auto (Bld)on 11-23 Erythrocyte distribution width (RBC) [Ratio] 13.6 % Normal 11.5-15.0 [facility] Comment on above: Order Comment: Speci men Type: BLOOD SPECIMENOrdering Facility: [facility] Address: [address] [place] [address] Performed By: #### 5 8410-2 ####[facility] LABORATORYIA [id number] [address] Hematocrit (Bld) [Volume fraction] 36.4 % Normal 36.0-46.0 [facility] Comment on above: Order Comment: Speci men Type: BLOOD SPECIMENOrdering Facility: [facility] Address: [address] [place] [address] Performed By: #### 5 8410-2 ####[facility]OSPITALIA [id number] [address] [place] Hemoglobin (Bld) [Mass/Vol] 11.8 g/dL Normal 11.5-15.5 [facility] Comment on above: Order Comment: Speci men Type: BLOOD SPECIMENOrdering Facility: [facility] Address: [address] [place] [address] Performed By: #### 5 8410-2 ####[facility] LABORATORYIA [id number] [place] [id number] [place] MCH (RBC) [Entitic mass] 30.4 pg Normal 26.0-34.0 [facility] Comment on above: Order Comment: Speci men Type: BLOOD SPECIMENOrdering Facility: [facility] Address: [address] [place] [address] Performed By: #### 5 8410-2 ####[facility] LABORATORYIA [id number] [place] [address] [place] MCHC (RBC) [Mass/Vol] 32.4 g/dL Normal 30.5-36.0 [facility] Comment on above: Order Comment: Speci men Type: BLOOD SPECIMENOrdering Facility: [facility] Address: [address] [place] [address] Performed By: #### 5 8410-2 ####[facility] LABORATORYIA [id number] [place] [address] [place] MCV (RBC) [Entitic vol] 93.8 fL Normal 80.0-100.0 [facility] Comment on above: Order Comment: Speci men Type: BLOOD SPECIMENOrdering Facility: [facility] Address: [address] [place] [address] Performed By: #### 5 8410-2 ####[facility] HOSPITALIA [id number] [place] [address] [place] Nucleated RBC (Bld) [#/Vol] 10*3/uL Normal <0.01 [facility] Comment on above: Order Comment: Speci men Type: BLOOD SPECIMENOrdering Facility: [facility] Address: [address] [place] [address] Performed By: #### 5 8410-2 ####[facility] HOSPITALIA [id number] [place] [address] [place] Platelet mean volume (Bld) [Entitic vol] 10.9 fL Normal 9.0-12.7 [facility] Comment on above: Order Comment: Speci men Type: BLOOD SPECIMENOrdering Facility: [facility] Address: [address] [place] [address] Performed By: #### 5 8410-2 ####[facility] LABORATORYCLIA [id number] [place] [address] [place] Platelets (Bld) [#/Vol] 217 10*3/uL Normal 150-400 [facility] Comment on above: Order Comment: Speci men Type: BLOOD SPECIMENOrdering Facility: [facility] Address: [address] [place] [address] Performed By: #### 5 8410-2 ####[facility] LABORATORYCLIA [id number] [facility] [address] [place] RBC (Bld) [#/Vol] 3.88 10*6/uL Low 3.90-5.20 [facility] Comment on above: Order Comment: Speci men Type: BLOOD SPECIMENOrdering Facility: [facility] Address: [address] [place] [address] Performed By: #### 5 8410-2 ####[facility] LABORATORYCLIA [id number] [facility] [place] [address] [place] WBC (Bld) [#/Vol] 3.45 10*3/uL Low 3.70-11.00 [facility] Comment on above: Order Comment: Speci men Type: BLOOD SPECIMENOrdering Facility: [facility] Address: [address] [place] [address] Performed By: #### 5 8410-2 ####[facility] LABORATORYCLIA [id number] [facility] [place] [address] [place] CNDSon 11-23-2022 CNDS Normal [facility] CNPNon 11-23-2022 CNPN Normal [facility] CONSULTon 11-23-2022 CONSULT Normal [facility] Hepatic function 2000 panelo n 11-23-2022 Albumin [Mass/Vol] 3.5 g/dL Low 3.9-4.9 [facility]spital Comment on above: Order Comment: Speci men Type: BLOOD SPECIMENOrdering Facility: [facility] Address: [address] [place] [address] Performed By: #### 2 4321-2, , 49302-4 ####[facility] LABORATORYCLIA [id number] [facility] [place] [address] [place] ALP [Catalytic activity/Vol] 58 U/L Normal 34-123 [facility] Comment on above: Order Comment: Speci men Type: BLOOD SPECIMENOrdering Facility: [facility] Address: [address] [place] [address] Performed By: #### 2 4321-2, , 52854-0 ####[facility] LABORATORYCLIA [id number] [place] [address] [place] ALT [Catalytic activity/Vol] 17 U/L Normal 7-38 [facility] Comment on above: Order Comment: Speci men Type: BLOOD SPECIMENOrdering Facility: [facility] Address: [address] [place] [address] Performed By: #### 2 4321-2, , 05953-8 ####[facility] LABORATORYCLIA [id number] [place] [address] [place] AST [Catalytic activity/Vol] 34 U/L Normal 13-35 [facility] Comment on above: Order Comment: Speci men Type: BLOOD SPECIMENOrdering Facility: [facility] Address: [address] [place] [address] Performed By: #### 2 4321-2, , ####[facility]OSPITALIA [id number] [place] [address] [place] Bilirubin [Mass/Vol] 0.4 mg/dL Normal 0.2-1.3 [facility] Comment on above: Order Comment: Speci men Type: BLOOD SPECIMENOrdering Facility: [facility] Address: [address] [place] [address] Performed By: #### 2 4321-2, , ####[facility] LABORATORYIA [id number] [place] [address] [place] Bilirubin.conjugate d [Mass/Vol] mg/dL Normal <0.2 [facility] Comment on above: Order Comment: Speci men Type: BLOOD SPECIMENOrdering Facility: [facility] Address: [address] [place] [address] Performed By: #### 2 4321-2, , 21283-4 ####[facility] LABORATORYCLIA [id number] [place] [address] [place] Protein [Mass/Vol] 5.9 g/dL Low 6.3-8.0 [facility] Comment on above: Order Comment: Speci men Type: BLOOD SPECIMENOrdering Facility: [facility] Address: [address] [place] [address] Performed By: #### 2 4321-2, , 87671-3 ####[facility]PITALIA [id number] [facility] [place] [address] [place] Magnesium SerPl-mCncon 11-23 Magnesium [Mass/Vol] 1.8 mg/dL Normal 1.7-2.3 [facility] Comment on above: Order Comment: Speci men Type: BLOOD SPECIMENOrdering Facility: [facility] Address: [address] [place] [address] Performed By: #### 2 4321-2, , ####[facility]PITALIA [id number] [place] [address] [place] CBC W Auto Differential pane l (Bld)on 11-22-2022 Basophils (Bld) [#/Vol] 0.03 10*3/uL Normal <0.11 [facility] Comment on above: Order Comment: Speci men Type: BLOOD SPECIMENOrdering Facility: [facility] Address: [address] [place] [address] Performed By: #### 5 7021-8 ####[facility]OS[facility]ITALIA [id number] [place] [address] [place] Basophils/100 WBC (Bld) 0.6 % Normal [facility] Comment on above: Order Comment: Speci men Type: BLOOD SPECIMENOrdering Facility: [facility] Address: [address] [place] [address] Performed By: #### 5 7021-8 ####[facility]OSPITALIA [id number] [place] [address] [place] Differential cell count method Nom (Bld) Auto Normal [facility] Comment on above: Order Comment: Speci men Type: BLOOD SPECIMENOrdering Facility: [facility] Address: [address] [place] [address] Performed By: #### 5 7021-8 ####[facility] LABORATORYCLIA [id number] [facility] [place] [address] [place] Eosinophils (Bld) [#/Vol] 0.08 10*3/uL Normal <0.46 [facility] Comment on above: Order Comment: Speci men Type: BLOOD SPECIMENOrdering Facility: [facility] Address: [address] [place] [address] Performed By: #### 5 7021-8 ####[facility] LABORATORYIA [id number] [place] [address] [place] Eosinophils/100 WBC (Bld) 1.7 % Normal [facility] Comment on above: Order Comment: Speci men Type: BLOOD SPECIMENOrdering Facility: [facility] Address: [address] [place] [address] Performed By: #### 5 7021-8 ####[facility]OSPITALIA [id number] [place] [address] [place] Erythrocyte distribution width (RBC) [Ratio] 13.4 % Normal 11.5-15.0 [facility] Comment on above: Order Comment: Speci men Type: BLOOD SPECIMENOrdering Facility: [facility] Address: [address] [place] [address] Performed By: #### 5 7021-8 ####[facility] LABORATORYIA [id number] [place] [address] [place] Hematocrit (Bld) [Volume fraction] 40.4 % Normal 36.0-46.0 [facility] Comment on above: Order Comment: Speci men Type: BLOOD SPECIMENOrdering Facility: [facility] Address: [address] [place] [address] Performed By: #### 5 7021-8 ####[facility] LABORATORYIA [id number] [place] [address] [place] Hemoglobin (Bld) [Mass/Vol] 13.8 g/dL Normal 11.5-15.5 [facility] Comment on above: Order Comment: Speci men Type: BLOOD SPECIMENOrdering Facility: [facility] Address: [address] [place] [address] Performed By: #### 5 7021-8 ####[facility] LABORATORYCLIA [id number] [place] [address] [place] Immature granulocytes (Bld) [#/Vol] 10*3/uL Normal <0.10 [facility] Comment on above: Order Comment: Speci men Type: BLOOD SPECIMENOrdering Facility: [facility] Address: [address] [place] [address] Performed By: #### 5 7021-8 ####[facility] LABORATORYIA [id number] [place] [id number] [place] Immature granulocytes/100 WBC (Bld) 0.2 % Normal [facility] Comment on above: Order Comment: Speci men Type: BLOOD SPECIMENOrdering Facility: [facility] Address: [address] [place] [address] Performed By: #### 5 7021-8 ####[facility]ITALIA [id number] [place] [address] [place] Lymphocytes (Bld) [#/Vol] 2.01 10*3/uL Normal 1.00-4.00 [facility] Comment on above: Order Comment: Speci men Type: BLOOD SPECIMENOrdering Facility: [facility] Address: [address] [place] [address] Performed By: #### 5 7021-8 ####[facility] LABORATORYIA [id number] [place] [id number] [place] Lymphocytes/100 WBC (Bld) 42.2 % Normal [facility] Comment on above: Order Comment: Speci men Type: BLOOD SPECIMENOrdering Facility: [facility] Address: [address] [place] [address] Performed By: #### 5 7021-8 ####[facility] LABORATORYIA [id number] [place] [address] [place] MCH (RBC) [Entitic mass] 31.2 pg Normal 26.0-34.0 [facility] Comment on above: Order Comment: Speci men Type: BLOOD SPECIMENOrdering Facility: [facility] Address: [address] [place] [address] Performed By: #### 5 7021-8 ####[facility]ITALIA [id number] [place] [address] [place] MCHC (RBC) [Mass/Vol] 34.2 g/dL Normal 30.5-36.0 [facility] Comment on above: Order Comment: Speci men Type: BLOOD SPECIMENOrdering Facility: [facility] Address: [address] [place] [address] Performed By: #### 5 7021-8 ####[facility]ITALIA [id number] [place] [address] [place] MCV (RBC) [Entitic vol] 91.4 fL Normal 80.0-100.0 [facility] Comment on above: Order Comment: Speci men Type: BLOOD SPECIMENOrdering Facility: [facility] Address: [address] [place] [address] Performed By: #### 5 7021-8 ####[facility] [id number] [place] [address] [place] Monocytes (Bld) [#/Vol] 0.25 10*3/uL Normal <0.87 [facility] Comment on above: Order Comment: Speci men Type: BLOOD SPECIMENOrdering Facility: [facility] Address: [address] [place] [address] Performed By: #### 5 7021-8 ####[facility] LABORATORYIA [id number] [place] [address] [place] Monocytes/100 WBC (Bld) 5.3 % Normal [facility] Comment on above: Order Comment: Speci men Type: BLOOD SPECIMENOrdering Facility: [facility] Address: [address] [place] [address] Performed By: #### 5 7021-8 ####[facility] LABORATORYIA [id number] [place] [address] [place] Neutrophils (Bld) [#/Vol] 2.38 10*3/uL Normal 1.45-7.50 [facility] Comment on above: Order Comment: Speci men Type: BLOOD SPECIMENOrdering Facility: [facility] Address: [address] [place] [address] Performed By: #### 5 7021-8 ####[facility] LABORATORYCLIA [id number] [place] [address] [place] Neutrophils/100 WBC (Bld) 50.0 % Normal [facility] Comment on above: Order Comment: Speci men Type: BLOOD SPECIMENOrdering Facility: [facility] Address: [address] [place] [address] Performed By: #### 5 7021-8 ####[facility] [id number] [place] [address] [place] Nucleated RBC (Bld) [#/Vol] 10*3/uL Normal <0.01 [facility] Comment on above: Order Comment: Speci men Type: BLOOD SPECIMENOrdering Facility: [facility] Address: [address] [place] [address] Performed By: #### 5 7021-8 ####[facility]IA [id number] [place] [id number] [place] Nucleated RBC/100 WBC (Bld) [Ratio] 0.0 /100 WBC Normal [facility] Comment on above: Order Comment: Speci men Type: BLOOD SPECIMENOrdering Facility: [facility] Address: [address] [place] [address] Performed By: #### 5 7021-8 ####[facility]IA [id number] [place] [id number] [place] Platelet mean volume (Bld) [Entitic vol] 11.1 fL Normal 9.0-12.7 [facility] Comment on above: Order Comment: Speci men Type: BLOOD SPECIMENOrdering Facility: [facility] Address: [address] [place] [address] Performed By: #### 5 7021-8 ####[facility] LABORATORYCLIA [id number] [facility] [place] [address] [place] Platelets (Bld) [#/Vol] 282 10*3/uL Normal 150-400 [facility] Comment on above: Order Comment: Speci men Type: BLOOD SPECIMENOrdering Facility: [facility] Address: [address] [place] [address] Performed By: #### 5 7021-8 ####[facility]IA [id number] [place] [address] [place] RBC (Bld) [#/Vol] 4.42 10*6/uL Normal 3.90-5.20 [facility] Comment on above: Order Comment: Speci men Type: BLOOD SPECIMENOrdering Facility: [facility] Address: [address] [place] [address] Performed By: #### 5 7021-8 ####[facility]IA [id number] [place] [address] [place] WBC (Bld) [#/Vol] 4.76 10*3/uL Normal 3.70-11.00 [facility] Comment on above: Order Comment: Speci men Type: BLOOD SPECIMENOrdering Facility: [facility] Address: [address] [place] [address] Performed By: #### 5 7021-8 ####[facility]ITALIA [id number] [facility] [place] [address] [place] ABD/PEL W IVCONon 023 CT ABD/PEL W IVCON Normal [facility] Comprehensive metabolic 2000 panelon 11-22-2022 Albumin [Mass/Vol] 4.4 g/dL Normal 3.9-4.9 [facility] Comment on above: Order Comment: Speci men Type: BLOOD SPECIMENOrdering Facility: [facility] Address: [address] [place] [address] Performed By: #### 2 4323-8, 3040-3, 35908-1 ####[facility] LABORATORYCLIA [id number] [facility] [place] [address] [place] ALP [Catalytic activity/Vol] 73 U/L Normal 34-123 [facility] Comment on above: Order Comment: Speci men Type: BLOOD SPECIMENOrdering Facility: [facility] Address: [address] [place] [address] Performed By: #### 2 4323-8, 0-3, ####[facility] LABORATORYCLIA [id number] [facility] [place] [address] [place] ALT [Catalytic activity/Vol] 21 U/L Normal 7-38 [facility] Comment on above: Order Comment: Speci men Type: BLOOD SPECIMENOrdering Facility: [facility] Address: [address] [place] [address] Performed By: #### 2 4323-8, 3, ####[facility] LABORATORYCLIA [id number] [place] [address] [place] Anion gap [Moles/Vol] 11 mmol/L Normal 9-18 [facility] Comment on above: Order Comment: Speci men Type: BLOOD SPECIMENOrdering Facility: [facility] Address: [address] [place] [address] Performed By: #### 2 4323-8, 3, ####[facility] LABORATORYIA [id number] [place] [address] [place] AST [Catalytic activity/Vol] 39 U/L High 13-35 [facility] Comment on above: Order Comment: Speci men Type: BLOOD SPECIMENOrdering Facility: [facility] Address: [address] [place] [address] Performed By: #### 2 4323-8, 3, ####[facility] LABORATORYCLIA [id number] [place] [address] [place] Bilirubin [Mass/Vol] 0.3 mg/dL Normal 0.2-1.3 [facility] Comment on above: Order Comment: Speci men Type: BLOOD SPECIMENOrdering Facility: [facility] Address: [address] [place] [address] Performed By: #### 2 4323-8, 0-3, ####[facility] LABORATORYCLIA [id number] [place] [address] [place] Calcium [Mass/Vol] 8.7 mg/dL Normal 8.5-10.2 [facility] Comment on above: Order Comment: Speci men Type: BLOOD SPECIMENOrdering Facility: [facility] Address: [address] [place] [address] Performed By: #### 2 4323-8, 3, ####[facility] LABORATORYCLIA [id number] [place] [address] [place] Chloride [Moles/Vol] 106 mmol/L High 97-105 [facility] Comment on above: Order Comment: Speci men Type: BLOOD SPECIMENOrdering Facility: [facility] Address: [address] [place] [address] Performed By: #### 2 4323-8, 3, ####[facility] LABORATORYCLIA [id number] [place] [address] [place] CO2 [Moles/Vol] 22 mmol/L Normal 22-30 [facility] Comment on above: Order Comment: Speci men Type: BLOOD SPECIMENOrdering Facility: [facility] Address: [address] [place] [address] Performed By: #### 2 4323-8, 3, ####[facility] LABORATORYCLIA [id number] [place] [address] [place] Creatinine [Mass/Vol] 0.80 mg/dL Normal 0.58-0.96 [facility] Comment on above: Order Comment: Speci men Type: BLOOD SPECIMENOrdering Facility: [facility] Address: [address] [place] [address] Performed By: #### 2 4323-8, 3, ####[facility]ITALIA [id number] [facility] [place] [address] [place] Creatinine and Glomerular filtration rate.predicted panel (S/P/Bld) 100 mL/min/1.73m??? Normal >=60 [facility] Comment on above: Order Comment: Geraldo marrero Type: BLOOD SPECIMENOrdering Facility: [facility] Address: [address] [place] [address] Result Comment: Jessica mated Glomerular Filtration Rate [...] GFR. Performed By: #### 2 4323-8, 3040-3, ####[facility]ITALIA [id number] [facility] [place] [address] [place] Glucose [Mass/Vol] 88 mg/dL Normal 74-99 [facility] Comment on above: Order Comment: Geraldo marrero Type: BLOOD SPECIMENOrdering Facility: [facility] Address: [address] [place] [address] Result Comment: The [place] Diabetes Association (ADA) provides guidance for cutoff [...] Standards of Medical Care in Diabetes 2016, [employer]. Diabetes Care. 2016.39(Suppl 1). Performed By: #### 2 4323-8, 3040-3, 59091-0 ####[facility] LABORATORYIA [id number] [place] [address] [place] Potassium [Moles/Vol] 3.9 mmol/L Normal 3.7-5.1 [facility] Comment on above: Order Comment: Speci men Type: BLOOD SPECIMENOrdering Facility: [facility] Address: [address] [place] [id number] Performed By: #### 2 4323-8, 3040-3, ####[facility] LABORATORYCLIA [id number] [place] [address] [place] Protein [Mass/Vol] 7.1 g/dL Normal 6.3-8.0 [facility] Comment on above: Order Comment: Speci men Type: BLOOD SPECIMENOrdering Facility: [facility] Address: [place] [address] Performed By: #### 2 4323-8, 3039-3, ####[facility]ITALIA [id number] [place] [address] [place] Sodium [Moles/Vol] 139 mmol/L Normal 136-144 [facility] ospital Comment on above: Order Comment: Speci men Type: BLOOD SPECIMENOrdering Facility: [facility] Address: [place] [address] Performed By: #### 2 4323-8, 3039-3, ####[facility] LABORATORYIA [id number] [place] [address] [place] Urea nitrogen [Mass/Vol] 8 mg/dL Normal 7-21 [facility] Comment on above: Order Comment: Speci men Type: BLOOD SPECIMENOrdering Facility: [facility] Address: [address] [place] [address] Performed By: #### 2 4323-8, 3039-3, ####[facility] LABORATORYCLIA [id number] [place] [address] [place] ECG COMPLETEon 11-22-2022 ECG COMPLETE Normal [facility] NOTEon 11-22-2022 ED NOTE HNO ID: [id number] Author: Lady Garza, RN Service: Emergency Medicine Author Type: Registered Nurse Type: ED Notes Filed: 11/22/2022 3:21 PM Note Text: Report to [facility] PRICE Normal [facility] ED PROV NOTEon 11-22-2022 ED PROV NOTE Normal [facility] HISTORY PHYSICALon HISTORY PHYSICAL Normal [facility] Lipase SerPl-cCncon 11-23-19 23 Lipase [Catalytic activity/Vol] 45 U/L Normal 16-61 [facility] Comment on above: Order Comment: Speci men Type: BLOOD SPECIMENOrdering Facility: [facility] Address: [address] [place] [address] Performed By: #### 2 4323-8, 0-3, ####[facility] LABORATORYCLIA [id number] [place] [address] [place] Magnesium SerPl-mCncon 11-22 Magnesium [Mass/Vol] 1.9 mg/dL Normal 1.7-2.3 [facility] Comment on above: Order Comment: Speci men Type: BLOOD SPECIMENOrdering Facility: [facility] Address: [address] [place] [address] Performed By: #### 2 4323-8, 0-3, ####[facility] LABORATORYCLIA [id number] [place] [address] [place] NURSING PROGon 11-22-2022 NURSING PROG Normal [facility] Urinalysis complete panel (U )on 11-22-2022 Bilirubin Ql (U) Negative Normal Negative [facility] pital Comment on above: Order Comment: Speci men Type: URINE SPECIMENOrdering Facility: [facility] Address: [address] [place] [address] Performed By: #### 2 4356-8 ####[facility] LABORATORYCLIA [id number] [place] [address] [place] Clarity (Unsp spec) Clear Normal Clear [facility] Comment on above: Order Comment: Speci men Type: URINE SPECIMENOrdering Facility: [facility] Address: [address] [place] [address] Performed By: #### 2 4356-8 ####[facility]ITALIA [id number] [place] [address] [place] Color (U) Light Yellow Normal yellow [facility] l Comment on above: Order Comment: Speci men Type: URINE SPECIMENOrdering Facility: [facility] Address: [address] [place] [address] Performed By: #### 2 4356-8 ####[facility] [id number] [place] [address] [place] Epithelial cells LM.HPF (Urine sed) [#/Area] Few Normal [facility] Comment on above: Order Comment: Speci men Type: URINE SPECIMENOrdering Facility: [facility] Address: [address] [place] [address] Performed By: #### 2 4356-8 ####[facility] [id number] [place] [address] [place] Glucose Test strip (U) [Mass/Vol] Negative Normal Trace, Negative [facility] Comment on above: Order Comment: Speci men Type: URINE SPECIMENOrdering Facility: [facility] Address: [address] [place] [address] Performed By: #### 2 4356-8 ####[facility] [id number] [place] [address] [place] Hemoglobin Ql (U) Negative Normal Negative, Trace [facility] Comment on above: Order Comment: Speci men Type: URINE SPECIMENOrdering Facility: [facility] Address: [address] [place] [address] Performed By: #### 2 4356-8 ####[facility]ITALIA [id number] [place] [address] [place] Ketones Ql (U) Negative Normal Negative, Trace [facility] Comment on above: Order Comment: Speci men Type: URINE SPECIMENOrdering Facility: [facility] Address: [address] [place], [place] [address] Performed By: #### 2 4356-8 ####[facility] [id number] [address] [place] Leukocyte esterase Test strip Ql (U) Negative Normal Negative, 25 Patito/uL [facility] Comment on above: Order Comment: Speci men Type: URINE SPECIMENOrdering Facility: [facility] Address: [address] [place] [address] Performed By: #### 2 4356-8 ####[facility] [id number] [place] [address] [place] Nitrite Ql (U) Negative Normal Negative [facility] Comment on above: Order Comment: Speci men Type: URINE SPECIMENOrdering Facility: [facility] Address: [address] [place] [address] Performed By: #### 2 4356-8 ####[facility] [id number] [place] [address] [place] pH (U) 7.0 [pH] Normal 5.0-8.0 [facility] Comment on above: Order Comment: Speci men Type: URINE SPECIMENOrdering Facility: [facility] Address: [address] [place] [address] Performed By: #### 2 4356-8 ####[facility] [id number] [place] [address] [place] Protein (U) [Mass/Vol] Negative Normal Trace, Negative [facility] Comment on above: Order Comment: Speci men Type: URINE SPECIMENOrdering Facility: [facility] Address: [address] [place] [address] Performed By: #### 2 4356-8 ####[facility] [id number] [place] [address] [place] RBC LM.HPF (Urine sed) [#/Area] 0-3 /HPF Normal 0-3 /HPF [facility] Comment on above: Order Comment: Speci men Type: URINE SPECIMENOrdering Facility: [facility] Address: [address] [place] [id number] Performed By: #### 2 4356-8 ####[facility]IA [id number] [place] [address] [place] Specific gravity (U) [Rel density] 1.020 Normal 1.005-1.030 [facility] Comment on above: Order Comment: Speci men Type: URINE SPECIMENOrdering Facility: [facility] Address: [address] [place] [address] Performed By: #### 2 4356-8 ####[facility] [id number] [place] [address] [place] Urobilinogen Ql (U) Normal Normal Negative [facility] Comment on above: Order Comment: Speci men Type: URINE SPECIMENOrdering Facility: [facility] Address: [address] [place] [address] Performed By: #### 2 4356-8 ####[facility] [id number] [place] [address] [place] WBC LM.HPF (Urine sed) [#/Area] 0-5 /HPF Normal 0-5 /HPF [facility] Comment on above: Order Comment: Speci men Type: URINE SPECIMENOrdering Facility: [facility] Address: [address] [place] [address] Performed By: #### 2 4356-8 ####[facility] [id number] [place] [address] [place] XR CHEST 2V FRONTAL/LATon XR CHEST 2V FRONTAL/LAT Normal [facility] CNPNon 11-20-2022 CNPN Normal [facility] Basic metabolic 2000 panelon 11-19-2022 Anion gap [Moles/Vol] 11 mmol/L Normal 9-18 [facility] Comment on above: Order Comment: Speci men Type: BLOOD SPECIMENOrdering Facility: [facility] Address: [address] [place] [address] Performed By: #### 2 4321-2, 75527-6, 2776-02 ####[facility] LABORATORYCLIA [id number] [place] [address] [place] Calcium [Mass/Vol] 8.9 mg/dL Normal 8.5-10.2 [facility] Comment on above: Order Comment: Speci men Type: BLOOD SPECIMENOrdering Facility: [facility] Address: [address] [place] [address] Performed By: #### 2 4321-2, , 2776-02 ####[facility]ORATORYCLIA [id number] [place] [id number] [place] Chloride [Moles/Vol] 104 mmol/L Normal 97-105 [facility] Comment on above: Order Comment: Speci men Type: BLOOD SPECIMENOrdering Facility: [facility] Address: [address] [place] [address] Performed By: #### 2 4321-2, , 2776-02 ####[facility]ORATORYCLIA [id number] [place] [id number] [place] CO2 [Moles/Vol] 25 mmol/L Normal 22-30 [facility] Comment on above: Order Comment: Speci men Type: BLOOD SPECIMENOrdering Facility: [facility] Address: [address] [place] [address] Performed By: #### 2 4321-2, , 2776-02 ####[facility]ORATORYCLIA [id number] [place] [id number] [place] Creatinine [Mass/Vol] 0.82 mg/dL Normal 0.58-0.96 [facility] Comment on above: Order Comment: Speci men Type: BLOOD SPECIMENOrdering Facility: [facility] Address: [address] [place] [address] Performed By: #### 2 4321-2, , 2776-02 ####[facility]ORATORYCLIA [id number] [place] [id number] [place] Creatinine and Glomerular filtration rate.predicted panel (S/P/Bld) 97 mL/min/1.73m??? Normal >=60 [facility] Comment on above: Order Comment: Geraldo marrero Type: BLOOD SPECIMENOrdering Facility: [facility] Address: [address] [place] [address] Result Comment: Jessica mated Glomerular Filtration Rate [...] actual GFR. Performed By: #### 2 4321-2, 82259-2, 2776- ####[facility]ORATORYCLIA [id number] [place] [id number] [place] Glucose [Mass/Vol] 80 mg/dL Normal 74-99 [facility] Comment on above: Order Comment: Geraldo marrero Type: BLOOD SPECIMENOrdering Facility: [facility] Address: [address] [place] [address] Result Comment: The [place] Diabetes Association (ADA) provides guidance for cutoff [...] Standards of Medical Care in Diabetes 2016, [place] [employer]. Diabetes Care. 2016.39(Suppl 1). Performed By: #### 2 4321-2, 22460-6, 2776-02 ####[facility]ORATORYCLIA [id number] [place] [id number] [place] Potassium [Moles/Vol] 4.2 mmol/L Normal 3.7-5.1 [facility] Comment on above: Order Comment: Geraldo marrero Type: BLOOD SPECIMENOrdering Facility: [facility] Address: [address] [place] [address] Performed By: #### 2 4321-2, 00784-2, 2776-02 ####[facility]ORATORYCLIA [id number] [place] [id number] [place] Sodium [Moles/Vol] 140 mmol/L Normal 136-144 [facility] Comment on above: Order Comment: Speci men Type: BLOOD SPECIMENOrdering Facility: [facility] Address: [address] [place] [address] Performed By: #### 2 4321-2, , 2776-02 ####[facility]ORATORYCLIA [id number] [place] [id number] [place] Urea nitrogen [Mass/Vol] 6 mg/dL Low 7-21 [facility] Comment on above: Order Comment: Speci men Type: BLOOD SPECIMENOrdering Facility: [facility] Address: [address] [place] [address] Performed By: #### 2 4321-2, , 2776-02 ####[facility]ORATORYCLIA [id number] [place] [id number] [place] CBC panel Auto (Bld)on 11-19 Erythrocyte distribution width (RBC) [Ratio] 13.2 % Normal 11.5-15.0 [facility] Comment on above: Order Comment: Speci men Type: BLOOD SPECIMENOrdering Facility: [facility] Address: [address] [place] [address] Performed By: #### 5 8410-2 ####[facility]ORATORYCLIA [id number] [place] [id number] [place] Hematocrit (Bld) [Volume fraction] 36.3 % Normal 36.0-46.0 [facility] Comment on above: Order Comment: Speci men Type: BLOOD SPECIMENOrdering Facility: [facility] Address: [address] [place] [address] Performed By: #### 5 8410-2 ####[facility]ORATORYCLIA [id number] [place] [id number] [place] Hemoglobin (Bld) [Mass/Vol] 12.4 g/dL Normal 11.5-15.5 [facility] Comment on above: Order Comment: Speci men Type: BLOOD SPECIMENOrdering Facility: [facility] Address: [address] [place] [address] Performed By: #### 5 8410-2 ####[facility]ORATORYCLIA [id number] [place] [address] [place] MCH (RBC) [Entitic mass] 30.4 pg Normal 26.0-34.0 [facility] Comment on above: Order Comment: Speci men Type: BLOOD SPECIMENOrdering Facility: [facility] Address: [address] [place] [address] Performed By: #### 5 8410-2 ####[facility] LABORATORYCLIA [id number] [address] [place] MCHC (RBC) [Mass/Vol] 34.2 g/dL Normal 30.5-36.0 [facility] Comment on above: Order Comment: Speci men Type: BLOOD SPECIMENOrdering Facility: [facility] Address: [address] [place] [address] Performed By: #### 5 8410-2 ####[facility] LABORATORYCLIA [id number] [address] [place] MCV (RBC) [Entitic vol] 89.0 fL Normal 80.0-100.0 [facility] Comment on above: Order Comment: Speci men Type: BLOOD SPECIMENOrdering Facility: [facility] Address: [address] [place] [address] Performed By: #### 5 8410-2 ####[facility]ORATORYCLIA [id number] [address] [place] Nucleated RBC (Bld) [#/Vol] 10*3/uL Normal <0.01 [facility] Comment on above: Order Comment: Speci men Type: BLOOD SPECIMENOrdering Facility: [facility] Address: [address] [place] [address] Performed By: #### 5 8410-2 ####[facility] LABORATORYCLIA [id number] [place] [address] [place] Platelet mean volume (Bld) [Entitic vol] 11.3 fL Normal 9.0-12.7 [facility] Comment on above: Order Comment: Speci men Type: BLOOD SPECIMENOrdering Facility: [facility] Address: [address] [place] [address] Performed By: #### 5 8410-2 ####[facility]ORATORYCLIA [id number] [place] [id number] [place] Platelets (Bld) [#/Vol] 239 10*3/uL Normal 150-400 [facility] Comment on above: Order Comment: Speci men Type: BLOOD SPECIMENOrdering Facility: [facility] Address: [address] [place] [address] Performed By: #### 5 8410-2 ####[facility]ORATORYCLIA [id number] [place] [address] [place] RBC (Bld) [#/Vol] 4.08 10*6/uL Normal 3.90-5.20 [facility] Comment on above: Order Comment: Speci men Type: BLOOD SPECIMENOrdering Facility: [facility] Address: [address] [place] [address] Performed By: #### 5 8410-2 ####[facility]ORATORYCLIA [id number] [place] [id number] [place] WBC (Bld) [#/Vol] 2.99 10*3/uL Low 3.70-11.00 [facility] Comment on above: Order Comment: Speci men Type: BLOOD SPECIMENOrdering Facility: [facility] Address: [address] [place] [address] Performed By: #### 5 8410-2 ####[facility]ORATORYCLIA [id number] [place] [id number] [place] CNDSon 11-19-2022 CNDS Normal [facility] Magnesium SerPl-mCncon 11-19 Magnesium [Mass/Vol] 1.9 mg/dL Normal 1.7-2.3 [facility] Comment on above: Order Comment: Speci men Type: BLOOD SPECIMENOrdering Facility: [facility] Address: [address] [place] [address] Performed By: #### 2 4321-2, , 2776-02 ####[facility] LABORATORYCLIA [id number] [place] [id number] [facility] [place] NURSING PROGon 11-19-2022 NURSING PROG Normal [facility] Phosphate SerPl-mCncon 11-19 Phosphate [Mass/Vol] 4.1 mg/dL Normal 2.7-4.8 [facility] Comment on above: Order Comment: Speci men Type: BLOOD SPECIMENOrdering Facility: [facility] Address: [address] [place] [address] Performed By: #### 2 4321-2, , 2776-02 ####[facility]ORATORYCLIA [id number] [place] [id number] [place] Basic metabolic 2000 panelon 11-18-2022 Anion gap [Moles/Vol] 10 mmol/L Normal 9-18 [facility] Comment on above: Order Comment: Speci men Type: BLOOD SPECIMENOrdering Facility: [facility] Address: [address] [place] [address] Performed By: #### 2 4321-2 ####[facility]ORATORYCLIA [id number] [place] [id number] [place] Calcium [Mass/Vol] 8.8 mg/dL Normal 8.5-10.2 [facility] Comment on above: Order Comment: Speci men Type: BLOOD SPECIMENOrdering Facility: [facility] Address: [address] Performed By: #### 2 4321-2 ####[facility]ORATORYCLIA [id number] [place] [id number] [place] Chloride [Moles/Vol] 105 mmol/L Normal 97-105 [facility] Comment on above: Order Comment: Speci men Type: BLOOD SPECIMENOrdering Facility: [facility] Address: [address] Performed By: #### 2 4321-2 ####[facility]ORATORYCLIA [id number] [place] [address] [place] CO2 [Moles/Vol] 22 mmol/L Normal 22-30 [facility] Comment on above: Order Comment: Speci men Type: BLOOD SPECIMENOrdering Facility: [facility] Address: [address] [place] [address] Performed By: #### 2 4321-2 ####[facility]ORATORYCLIA [id number] [address] Creatinine [Mass/Vol] 0.61 mg/dL Normal 0.58-0.96 [facility] Comment on above: Order Comment: Speci men Type: BLOOD SPECIMENOrdering Facility: [facility] Address: [address] [place] [address] Performed By: #### 2 4321-2 ####[facility]ORATORYCLIA [id number] [address] Creatinine and Glomerular filtration rate.predicted panel (S/P/Bld) 121 mL/min/1.73m??? Normal >=60 [facility] Comment on above: Order Comment: Speci men Type: BLOOD SPECIMENOrdering Facility: [facility] Address: [address] [place] [address] Result Comment: Jessica mated Glomerular Filtration Rate [...] actual GFR. Performed By: #### 2 4321-2 ####[facility]ORATORYCLIA [id number] [place] [id number] [place] Glucose [Mass/Vol] 115 mg/dL High 74-99 [facility] Comment on above: Order Comment: Speci men Type: BLOOD SPECIMENOrdering Facility: [facility] Address: [address] [place] [address] Result Comment: The [place] Diabetes Association (ADA) provides guidance for cutoff [...] Standards of Medical Care in Diabetes 2016, [place] [employer]. Diabetes Care. 2016.39(Suppl 1). Performed By: #### 2 4321-2 ####[facility]ORATORYCLIA [id number] [place] [address] [place] Potassium [Moles/Vol] 4.2 mmol/L Normal 3.7-5.1 [facility] Comment on above: Order Comment: Geraldo marrero Type: BLOOD SPECIMENOrdering Facility: [facility] Address: [address] [place] [address] Performed By: #### 2 4321-2 ####[facility]ORATORYCLIA [id number] [place] [address] [place] Sodium [Moles/Vol] 137 mmol/L Normal 136-144 [facility] Comment on above: Order Comment: Geraldo marrero Type: BLOOD SPECIMENOrdering Facility: [facility] Address: [address] [place] [address] Performed By: #### 2 4321-2 ####[facility]ORATORYCLIA [id number] [place] [id number] [place] Urea nitrogen [Mass/Vol] 6 mg/dL Low 7-21 [facility] Comment on above: Order Comment: Geraldo marrero Type: BLOOD SPECIMENOrdering Facility: [facility] Address: [address] [place] [address] Performed By: #### 2 4321-2 ####[facility]ORATORYCLIA [id number] [place] [id number] [place] CASE MGT INIT Uli 2022 CASE MGT INIT ASSES Normal [facility] CBC panel Auto (Bld)on 11-18 Erythrocyte distribution width (RBC) [Ratio] 13.0 % Normal 11.5-15.0 [facility] Comment on above: Order Comment: Speci men Type: BLOOD SPECIMENOrdering Facility: [facility] Address: [address] [place] [address] Performed By: #### 5 8410-2 ####[facility] LABORATORYCLIA [id number] [place] [address] [place] Hematocrit (Bld) [Volume fraction] 35.7 % Low 36.0-46.0 [facility] Comment on above: Order Comment: Speci men Type: BLOOD SPECIMENOrdering Facility: [facility] Address: [address] [place] [address] Performed By: #### 5 8410-2 ####[facility]ATORYCLIA [id number] [address] [place] Hemoglobin (Bld) [Mass/Vol] 12.3 g/dL Normal 11.5-15.5 [facility] Comment on above: Order Comment: Speci men Type: BLOOD SPECIMENOrdering Facility: [facility] Address: [address] [place] [address] Performed By: #### 5 8410-2 ####[facility]ORATORYCLIA [id number] [place] [address] [place] MCH (RBC) [Entitic mass] 31.1 pg Normal 26.0-34.0 [facility] [facility] Comment on above: Order Comment: Speci men Type: BLOOD SPECIMENOrdering Facility: [facility] Address: [address] [place] [address] Performed By: #### 5 8410-2 ####[facility] LABORATORYCLIA [id number] [address] [place] MCHC (RBC) [Mass/Vol] 34.5 g/dL Normal 30.5-36.0 [facility] Comment on above: Order Comment: Speci men Type: BLOOD SPECIMENOrdering Facility: [facility] Address: [address] [address] Performed By: #### 5 8410-2 ####[facility] LABORATORYCLIA [id number] [address] MCV (RBC) [Entitic vol] 90.2 fL Normal 80.0-100.0 [facility] Comment on above: Order Comment: Speci men Type: BLOOD SPECIMENOrdering Facility: [facility] Address: [address] [address] Performed By: #### 5 8410-2 ####[facility] LABORATORYCLIA [id number] [address] [place] Nucleated RBC (Bld) [#/Vol] 10*3/uL Normal <0.01 [facility] Comment on above: Order Comment: Speci men Type: BLOOD SPECIMENOrdering Facility: [facility] Address: [address] [address] Performed By: #### 5 8410-2 ####[facility] LABORATORYCLIA [id number] [place] [address] [place] Platelet mean volume (Bld) [Entitic vol] 11.2 fL Normal 9.0-12.7 [facility] Comment on above: Order Comment: Speci men Type: BLOOD SPECIMENOrdering Facility: [facility] Address: [address] [address] Performed By: #### 5 8410-2 ####[facility] LABORATORYCLIA [id number] [place] [address] [place] Platelets (Bld) [#/Vol] 214 10*3/uL Normal 150-400 [facility] Comment on above: Order Comment: Speci men Type: BLOOD SPECIMENOrdering Facility: [facility] Address: [address] [address] Performed By: #### 5 8410-2 ####[facility] LABORATORYCLIA [id number] [place] [address] [place] RBC (Bld) [#/Vol] 3.96 10*6/uL Normal 3.90-5.20 [facility] Comment on above: Order Comment: Speci men Type: BLOOD SPECIMENOrdering Facility: [facility] Address: [address] [address] Performed By: #### 5 8410-2 ####[facility]ORATORYCLIA [id number] [place] [address] [place] WBC (Bld) [#/Vol] 3.48 10*3/uL Low 3.70-11.00 [facility] Comment on above: Order Comment: Speci men Type: BLOOD SPECIMENOrdering Facility: [facility] Address: [address] [place] [address] Performed By: #### 5 8410-2 ####[facility]ORATORYCLIA [id number] [address] [place] NURSING PROGon 11-18-2022 NURSING PROG Normal [facility] Urinalysis complete panel (U )on 11-18-2022 Bacteria LM.HPF (Urine sed) [#/Area] Rare Abnormal None Seen [facility] Comment on above: Order Comment: Speci men Type: URINE SPECIMENOrdering Facility: [facility] Address: [address] [place] [address] Performed By: #### 2 4356-8 ####[facility] LABORATORYCLIA [id number] [place] [address] [place] Bilirubin Ql (U) Negative Normal Negative [facility] Comment on above: Order Comment: Speci men Type: URINE SPECIMENOrdering Facility: [facility] Address: [address] [place] [address] Performed By: #### 2 4356-8 ####[facility]ORATORYCLIA [id number] [place] [address] [place] Clarity (Unsp spec) Clear Normal Clear [facility] Comment on above: Order Comment: Speci men Type: URINE SPECIMENOrdering Facility: [facility] Address: [address] [place] [address] Performed By: #### 2 4356-8 ####[facility]ORATORYCLIA [id number] [place] [address] [place] Color (U) Colorless Normal Yellow [facility] Comment on above: Order Comment: Speci men Type: URINE SPECIMENOrdering Facility: [facility] Address: [address] [address] Performed By: #### 2 4356-8 ####[facility]ORATORYCLIA [id number] [place] [address] [place] Epithelial cells LM.HPF (Urine sed) [#/Area] Few Normal [facility] Comment on above: Order Comment: Speci men Type: URINE SPECIMENOrdering Facility: [facility] Address: [address] [address] Performed By: #### 2 4356-8 ####[facility] LABORATORYCLIA [id number] [place] [address] [place] Glucose Test strip (U) [Mass/Vol] Negative Normal Trace, Negative [facility] Comment on above: Order Comment: Speci men Type: URINE SPECIMENOrdering Facility: [facility] Address: [address] [address] Performed By: #### 2 4356-8 ####[facility] LABORATORYCLIA [id number] [place] [address] [place] Hemoglobin Ql (U) Negative Normal Negative, Trace [facility] Comment on above: Order Comment: Speci men Type: URINE SPECIMENOrdering Facility: [facility] Address: [address] [address] Performed By: #### 2 4356-8 ####[facility] LABORATORYCLIA [id number] [place] [address] [place] Ketones Ql (U) Negative Normal Negative, Trace [facility] Comment on above: Order Comment: Speci men Type: URINE SPECIMENOrdering Facility: [facility] Address: [address] [address] Performed By: #### 2 4356-8 ####[facility]ORATORYCLIA [id number] [address] Leukocyte esterase Test strip Ql (U) Negative Normal Negative, 25 Patito/uL [facility] Comment on above: Order Comment: Speci men Type: URINE SPECIMENOrdering Facility: [facility] Address: [address] [place] [address] Performed By: #### 2 4356-8 ####[facility] LABORATORYCLIA [id number] [place] [address] [place] Nitrite Ql (U) Negative Normal Negative [facility] Comment on above: Order Comment: Speci men Type: URINE SPECIMENOrdering Facility: [facility] Address: [address] [place] [address] Performed By: #### 2 4356-8 ####[facility] LABORATORYCLIA [id number] [place] [address] [place] pH (U) 7.5 [pH] Normal 5.0-8.0 [facility] Comment on above: Order Comment: Speci men Type: URINE SPECIMENOrdering Facility: [facility] Address: [address] [place] [address] Performed By: #### 2 4356-8 ####[facility]ORATORYCLIA [id number] [place] [address] [place] Protein (U) [Mass/Vol] Negative Normal Trace, Negative [facility] Comment on above: Order Comment: Speci men Type: URINE SPECIMENOrdering Facility: [facility] Address: [address] [place] [address] Performed By: #### 2 4356-8 ####[facility] LABORATORYCLIA [id number] [place] [address] [place] RBC LM.HPF (Urine sed) [#/Area] 0-3 /HPF Normal 0-3 /HPF [facility] Comment on above: Order Comment: Speci men Type: URINE SPECIMENOrdering Facility: [facility] Address: [address] [place] [address] Performed By: #### 2 4356-8 ####[facility] LABORATORYCLIA [id number] [address] [place] Specific gravity (U) [Rel density] 1.007 Normal 1.005-1.030 [facility] Comment on above: Order Comment: Speci men Type: URINE SPECIMENOrdering Facility: [facility] Address: [address] [place] [address] Performed By: #### 2 4356-8 ####[facility]ORATORYCLIA [id number] [place] [address] [place] Urobilinogen Ql (U) Negative Normal Negative [facility] Comment on above: Order Comment: Speci men Type: URINE SPECIMENOrdering Facility: [facility] Address: [address] [place] [address] Performed By: #### 2 4356-8 ####[facility] HOSPITALIA [id number] [place] [address] [place] WBC LM.HPF (Urine sed) [#/Area] 0-5 /HPF Normal 0-5 /HPF [facility] Comment on above: Order Comment: Speci men Type: URINE SPECIMENOrdering Facility: [facility] Address: [address] [place] [address] Performed By: #### 2 4356-8 ####[facility] LABORATORYIA [id number] [place] [address] [place] Bilirubin Ql (U) Negative Normal Negative [facility] Comment on above: Order Comment: Speci men Type: URINE SPECIMENOrdering Facility: [facility] Address: [address] [place] [address] Performed By: #### 2 4356-8 ####[facility]ORATORYCLIA [id number] [place] [address] [place] Clarity (Unsp spec) Clear Normal Clear [facility] Comment on above: Order Comment: Speci men Type: URINE SPECIMENOrdering Facility: [facility] Address: [address] [place] [address] Performed By: #### 2 4356-8 ####[facility]ORATORYCLIA [id number] [place] [address] [place] Color (U) Colorless Normal Yellow [facility] Comment on above: Order Comment: Speci men Type: URINE SPECIMENOrdering Facility: [facility] Address: [address] [place] [address] Performed By: #### 2 4356-8 ####[facility]ORATORYCLIA [id number] [place] [address] [place] Epithelial cells LM.HPF (Urine sed) [#/Area] Few Normal [facility] Comment on above: Order Comment: Speci men Type: URINE SPECIMENOrdering Facility: [facility] Address: [address] [place] [address] Performed By: #### 2 4356-8 ####[facility]ORATORYCLIA [id number] [place] [address] [place] Glucose Test strip (U) [Mass/Vol] Negative Normal Trace, Negative [facility] Comment on above: Order Comment: Speci men Type: URINE SPECIMENOrdering Facility: [facility] Address: [address] [place] [address] Performed By: #### 2 4356-8 ####[facility]ORATORYCLIA [id number] [place] [address] [place] Hemoglobin Ql (U) Negative Normal Negative, Trace [facility] Comment on above: Order Comment: Speci men Type: URINE SPECIMENOrdering Facility: [facility] Address: [address] [place] [address] Performed By: #### 2 4356-8 ####[facility]ORATORYCLIA [id number] [place] [address] [place] Ketones Ql (U) Negative Normal Negative, Trace [facility] Comment on above: Order Comment: Speci men Type: URINE SPECIMENOrdering Facility: [facility] Address: [address] [place] [address] Performed By: #### 2 4356-8 ####[facility]ORATORYCLIA [id number] [place] [address] [place] Leukocyte esterase Test strip Ql (U) Negative Normal Negative, 25 Patito/uL [facility] Comment on above: Order Comment: Speci men Type: URINE SPECIMENOrdering Facility: [facility] Address: [address] [place] [address] Performed By: #### 2 4356-8 ####[facility] LABORATORYCLIA [id number] [place] [address] [place] Nitrite Ql (U) Negative Normal Negative [facility] Comment on above: Order Comment: Speci men Type: URINE SPECIMENOrdering Facility: [facility] Address: [address] [place] [address] Performed By: #### 2 4356-8 ####[facility] LABORATORYCLIA [id number] [place] [address] [place] pH (U) 7.5 [pH] Normal 5.0-8.0 [facility] Comment on above: Order Comment: Speci men Type: URINE SPECIMENOrdering Facility: [facility] Address: [address] [place] [address] Performed By: #### 2 4356-8 ####[facility]ORATORYCLIA [id number] [place] [address] [place] Protein (U) [Mass/Vol] Negative Normal Trace, Negative [facility] Comment on above: Order Comment: Speci men Type: URINE SPECIMENOrdering Facility: [facility] Address: [address] [place] [address] Performed By: #### 2 4356-8 ####[facility]ORATORYCLIA [id number] [place] [address] [place] RBC LM.HPF (Urine sed) [#/Area] 0-3 /HPF Normal 0-3 /HPF [facility] Comment on above: Order Comment: Speci men Type: URINE SPECIMENOrdering Facility: [facility] Address: [address] [place] [address] Performed By: #### 2 4356-8 ####[facility]ORATORYCLIA [id number] [place] [address] [place] Specific gravity (U) [Rel density] 1.006 Normal 1.005-1.030 [facility] Comment on above: Order Comment: Speci men Type: URINE SPECIMENOrdering Facility: [facility] Address: [address] [place] [address] Performed By: #### 2 4356-8 ####[facility]ORATORYCLIA [id number] [address] [place] Urobilinogen Ql (U) Negative Normal Negative [facility] Comment on above: Order Comment: Speci men Type: URINE SPECIMENOrdering Facility: [facility] Address: [address] [address] Performed By: #### 2 4356-8 ####[facility]ORATORYCLIA [id number] [place] [address] [place] WBC LM.HPF (Urine sed) [#/Area] 0-5 /HPF Normal 0-5 /HPF [facility] Comment on above: Order Comment: Speci men Type: URINE SPECIMENOrdering Facility: [facility] Address: [address] [place] [address] Performed By: #### 2 4356-8 ####[facility]ORATORYCLIA [id number] [place] [address] [place] ALLIED HEALTHon 11-17-2022 ALLIED HEALTH Normal [facility] CBC W Auto Differential pane l (Bld)on 11-17-2022 Basophils (Bld) [#/Vol] 0.03 10*3/uL Normal <0.11 [facility] Comment on above: Order Comment: Speci men Type: BLOOD SPECIMENOrdering Facility: [facility] Address: [address] [address] Performed By: #### 5 7021-8 ####[facility]ORATORYCLIA [id number] [place] [address] [place] Basophils/100 WBC (Bld) 0.7 % Normal [facility] Comment on above: Order Comment: Speci men Type: BLOOD SPECIMENOrdering Facility: [facility] Address: [address] [place] [address] Performed By: #### 5 7021-8 ####[facility] LABORATORYCLIA [id number] [place] [address] [place] Differential cell count method Nom (Bld) Auto Normal [facility] Comment on above: Order Comment: Speci men Type: BLOOD SPECIMENOrdering Facility: [facility] Address: [address] [place] [address] Performed By: #### 5 7021-8 ####[facility] LABORATORYCLIA [id number] [place] [address] [place] Eosinophils (Bld) [#/Vol] 0.07 10*3/uL Normal <0.46 [facility] Comment on above: Order Comment: Speci men Type: BLOOD SPECIMENOrdering Facility: [facility] Address: [address] [place] [address] Performed By: #### 5 7021-8 ####[facility] LABORATORYCLIA [id number] [place] [address] [place] Eosinophils/100 WBC (Bld) 1.7 % Normal [facility] Comment on above: Order Comment: Speci men Type: BLOOD SPECIMENOrdering Facility: [facility] Address: [address] [place] [address] Performed By: #### 5 7021-8 ####[facility] LABORATORYCLIA [id number] [address] [place] Erythrocyte distribution width (RBC) [Ratio] 13.2 % Normal 11.5-15.0 [facility] Comment on above: Order Comment: Speci men Type: BLOOD SPECIMENOrdering Facility: [facility] Address: [address] [place] [address] Performed By: #### 5 7021-8 ####[facility] LABORATORYCLIA [id number] [address] [place] Hematocrit (Bld) [Volume fraction] 37.2 % Normal 36.0-46.0 [facility] Comment on above: Order Comment: Speci men Type: BLOOD SPECIMENOrdering Facility: [facility] Address: [address] [place] [address] Performed By: #### 5 7021-8 ####[facility] LABORATORYCLIA [id number] [place] [id number] [place] Hemoglobin (Bld) [Mass/Vol] 12.9 g/dL Normal 11.5-15.5 [facility] Comment on above: Order Comment: Speci men Type: BLOOD SPECIMENOrdering Facility: [facility] Address: [address] [place] [address] Performed By: #### 5 7021-8 ####[facility] LABORATORYCLIA [id number] [place] [address] [place] Immature granulocytes (Bld) [#/Vol] 10*3/uL Normal <0.10 [facility] Comment on above: Order Comment: Speci men Type: BLOOD SPECIMENOrdering Facility: [facility] Address: [address] [place] [address] Performed By: #### 5 7021-8 ####[facility] LABORATORYCLIA [id number] [place] [address] [place] Immature granulocytes/100 WBC (Bld) 0.2 % Normal [facility] Comment on above: Order Comment: Speci men Type: BLOOD SPECIMENOrdering Facility: [facility] Address: [address] [place] [address] Performed By: #### 5 7021-8 ####[facility] LABORATORYCLIA [id number] [place] [address] [place] Lymphocytes (Bld) [#/Vol] 1.81 10*3/uL Normal 1.00-4.00 [facility] Comment on above: Order Comment: Speci men Type: BLOOD SPECIMENOrdering Facility: [facility] Address: [address] [place] [address] Performed By: #### 5 7021-8 ####[facility] LABORATORYCLIA [id number] [place] [address] [place] Lymphocytes/100 WBC (Bld) 44.6 % Normal [facility] Comment on above: Order Comment: Speci men Type: BLOOD SPECIMENOrdering Facility: [facility] Address: [address] [address] Performed By: #### 5 7021-8 ####[facility] LABORATORYCLIA [id number] [address] MCH (RBC) [Entitic mass] 31.1 pg Normal 26.0-34.0 [facility] Comment on above: Order Comment: Speci men Type: BLOOD SPECIMENOrdering Facility: [facility] Address: [address] [address] Performed By: #### 5 7021-8 ####[facility] LABORATORYCLIA [id number] [address] MCHC (RBC) [Mass/Vol] 34.7 g/dL Normal 30.5-36.0 [facility] Comment on above: Order Comment: Speci men Type: BLOOD SPECIMENOrdering Facility: [facility] Address: [address] [address] Performed By: #### 5 7021-8 ####[facility] LABORATORYCLIA [id number] [address] [facility] MCV (RBC) [Entitic vol] 89.6 fL Normal 80.0-100.0 [facility] Comment on above: Order Comment: Speci men Type: BLOOD SPECIMENOrdering Facility: [facility] Address: [address] [address] Performed By: #### 5 7021-8 ####[facility] LABORATORYCLIA [id number] [address] Monocytes (Bld) [#/Vol] 0.21 10*3/uL Normal <0.87 [facility] Comment on above: Order Comment: Speci men Type: BLOOD SPECIMENOrdering Facility: [facility] Address: [address] [place] [address] Performed By: #### 5 7021-8 ####[facility] LABORATORYCLIA [id number] [address] Monocytes/100 WBC (Bld) 5.2 % Normal [facility] Comment on above: Order Comment: Speci men Type: BLOOD SPECIMENOrdering Facility: [facility] Address: [address] [address] Performed By: #### 5 7021-8 ####[facility] LABORATORYCLIA [id number] [place] [address] [place] Neutrophils (Bld) [#/Vol] 1.93 10*3/uL Normal 1.45-7.50 [facility] Comment on above: Order Comment: Speci men Type: BLOOD SPECIMENOrdering Facility: [facility] Address: [address] [address] Performed By: #### 5 7021-8 ####[facility] LABORATORYCLIA [id number] [address] [place] Neutrophils/100 WBC (Bld) 47.6 % Normal [facility] Comment on above: Order Comment: Speci men Type: BLOOD SPECIMENOrdering Facility: [facility] Address: [address] [address] Performed By: #### 5 7021-8 ####[facility] LABORATORYCLIA [id number] [place] [address] [place] Nucleated RBC (Bld) [#/Vol] 10*3/uL Normal <0.01 [facility] Comment on above: Order Comment: Speci men Type: BLOOD SPECIMENOrdering Facility: [facility] Address: [address] [address] Performed By: #### 5 7021-8 ####[facility] LABORATORYCLIA [id number] [place] [address] [place] Nucleated RBC/100 WBC (Bld) [Ratio] 0.0 /100 WBC Normal [facility] Comment on above: Order Comment: Speci men Type: BLOOD SPECIMENOrdering Facility: [facility] Address: [address] [place] [address] Performed By: #### 5 7021-8 ####[facility] LABORATORYCLIA [id number] [place] [address] [place] Platelet mean volume (Bld) [Entitic vol] 11.9 fL Normal 9.0-12.7 [facility] Comment on above: Order Comment: Speci men Type: BLOOD SPECIMENOrdering Facility: [facility] Address: [address] [place] [address] Performed By: #### 5 7021-8 ####[facility]ORATORYCLIA [id number] [place] [id number] [place] Platelets (Bld) [#/Vol] 85 10*3/uL Low 150-400 [facility] Comment on above: Order Comment: Speci men Type: BLOOD SPECIMENOrdering Facility: [facility] Address: [address] [place] [address] Result Comment: Resu lts may be inaccurate due to the presence of microclots. Performed By: #### 5 7021-8 ####[facility]ORATORYCLIA [id number] [place] [address] [place] RBC (Bld) [#/Vol] 4.15 10*6/uL Normal 3.90-5.20 [facility] Comment on above: Order Comment: Speci men Type: BLOOD SPECIMENOrdering Facility: [facility] Address: [address] [place] [address] Performed By: #### 5 7021-8 ####[facility]ORATORYCLIA [id number] [place] [id number] [place] WBC (Bld) [#/Vol] 4.06 10*3/uL Normal 3.70-11.00 [facility] Comment on above: Order Comment: Speci men Type: BLOOD SPECIMENOrdering Facility: [facility] Address: [address] [place] [address] Result Comment: Resu lts may be inaccurate due to the presence of microclots. Performed By: #### 5 7021-8 ####[facility]ORATORYCLIA [id number] [place] [id number] [place] CONSULTon 11-17-2022 CONSULT Normal [facility] CT ABD/PEL W IVCONon 023 CT ABD/PEL W IVCON Normal [facility] Comprehensive metabolic 2000 panelon 11-17-2022 Albumin [Mass/Vol] 4.2 g/dL Normal 3.9-4.9 [facility] Comment on above: Order Comment: Speci men Type: BLOOD SPECIMENOrdering Facility: [facility] Address: [address] [address] Performed By: #### 3 040-3, 35955-7 ####[facility] LABORATORYCLIA [id number] [place] [address] [place] ALP [Catalytic activity/Vol] 69 U/L Normal 34-123 [facility] Comment on above: Order Comment: Speci men Type: BLOOD SPECIMENOrdering Facility: [facility] Address: [address] [place] [address] Performed By: #### 3 040-3, 43540-0 ####[facility] LABORATORYCLIA [id number] [address] [place] ALT [Catalytic activity/Vol] 22 U/L Normal 7-38 [facility] Comment on above: Order Comment: Speci men Type: BLOOD SPECIMENOrdering Facility: [facility] Address: [address] [place] [address] Performed By: #### 3 040-3, 62029-0 ####[facility] LABORATORYCLIA [id number] [place] [id number] [place] Anion gap [Moles/Vol] 9 mmol/L Normal 9-18 [facility] Comment on above: Order Comment: Speci men Type: BLOOD SPECIMENOrdering Facility: [facility] Address: [address] [address] Performed By: #### 3 040-3, 49807-0 ####[facility] LABORATORYCLIA [id number] [address] [place] AST [Catalytic activity/Vol] 40 U/L High 13-35 [facility] Comment on above: Order Comment: Speci men Type: BLOOD SPECIMENOrdering Facility: [facility] Address: [address] [address] Performed By: #### 3 -3, ####[facility] LABORATORYCLIA [id number] [place] [address] [place] Bilirubin [Mass/Vol] 0.4 mg/dL Normal 0.2-1.3 [facility] Comment on above: Order Comment: Speci men Type: BLOOD SPECIMENOrdering Facility: [facility] Address: [address] [place] [address] Performed By: #### 3 -3, ####[facility] LABORATORYCLIA [id number] [place] [address] [place] Calcium [Mass/Vol] 8.8 mg/dL Normal 8.5-10.2 [facility] Comment on above: Order Comment: Speci men Type: BLOOD SPECIMENOrdering Facility: [facility] Address: [address] [address] Performed By: #### 3 , ####[facility] LABORATORYCLIA [id number] [place] [address] [place] Chloride [Moles/Vol] 107 mmol/L High 97-105 [facility] Comment on above: Order Comment: Speci men Type: BLOOD SPECIMENOrdering Facility: [facility] Address: [address] [place] [address] Performed By: #### 3 3, ####[facility] LABORATORYCLIA [id number] [place] [id number] [place] CO2 [Moles/Vol] 23 mmol/L Normal 22-30 [facility] Comment on above: Order Comment: Speci men Type: BLOOD SPECIMENOrdering Facility: [facility] Address: [address] [address] Performed By: #### 3 3, ####[facility] LABORATORYCLIA [id number] [place] [id number] [place] Creatinine [Mass/Vol] 0.75 mg/dL Normal 0.58-0.96 [facility] Comment on above: Order Comment: Speci elida Type: BLOOD SPECIMENOrdering Facility: [facility] Address: [address] [address] Performed By: #### 3 040-3, 69498-9 ####[facility]ORATORYCLIA [id number] [place] [id number] [place] Creatinine and Glomerular filtration rate.predicted panel (S/P/Bld) 108 mL/min/1.73m??? Normal >=60 [facility] Comment on above: Order Comment: Geraldo elida Type: BLOOD SPECIMENOrdering Facility: [facility] Address: [address] [address] Result Comment: Jessica mated Glomerular Filtration Rate [...] actual GFR. Performed By: #### 3 040-3, 13363-1 ####[facility] LABORATORYCLIA [id number] [place] [id number] [place] Glucose [Mass/Vol] 80 mg/dL Normal 74-99 [facility] Comment on above: Order Comment: Lyssamichael marrero Type: BLOOD SPECIMENOrdering Facility: [facility] Address: [address] [address] Result Comment: The [place] Diabetes Association (ADA) provides guidance for cutoff [...] Standards of Medical Care in Diabetes 2016, [place] [employer]. Diabetes Care. 2016.39(Suppl 1). Performed By: #### 3 -3, ####[facility] LABORATORYCLIA [id number] [place] [id number] [place] Potassium [Moles/Vol] 4.3 mmol/L Normal 3.7-5.1 [facility] Comment on above: Order Comment: Speci men Type: BLOOD SPECIMENOrdering Facility: [facility] Address: [address] [place] [address] Performed By: #### 3 -3, ####[facility] LABORATORYCLIA [id number] [place] [address] [place] Protein [Mass/Vol] 6.9 g/dL Normal 6.3-8.0 [facility] Comment on above: Order Comment: Speci men Type: BLOOD SPECIMENOrdering Facility: [facility] Address: [address] [place] [address] Performed By: #### 3 -3, ####[facility] LABORATORYCLIA [id number] [place] [address] [place] Sodium [Moles/Vol] 139 mmol/L Normal 136-144 [facility] Comment on above: Order Comment: Speci men Type: BLOOD SPECIMENOrdering Facility: [facility] Address: [address] [place] [address] Performed By: #### 3 -3, ####[facility] LABORATORYCLIA [id number] [place] [id number] [place] Urea nitrogen [Mass/Vol] 8 mg/dL Normal 7-21 [facility] Comment on above: Order Comment: Speci men Type: BLOOD SPECIMENOrdering Facility: [facility] Address: [address] [place] [address] Performed By: #### 3 040-3, ####[facility] LABORATORYCLIA [id number] [place] [id number] [place] ED NOTEon 11-17-2022 ED NOTE HNO ID: [id number] Author: Jean, Jayla, RN Service: ? Author Type: Registered Nurse Type: ED Notes Filed: 11/17/2022 2:00 PM Note Text: Pt sts symptoms she feels like she is going to pass out in WR. Vitals rechecked and DS done Normal [facility] ED PROV NOTEon 11-17-2022 ED PROV NOTE Normal [facility] ED PROV NOTE Normal [facility] ED Triage Noteon 11-17-2022 ED Triage Note Normal [facility] Lipase SerPl-cCncon 11-18-19 23 Lipase [Catalytic activity/Vol] 26 U/L Normal 16-61 [facility] Comment on above: Order Comment: Speci men Type: BLOOD SPECIMENOrdering Facility: [facility] Address: [address] [address] Performed By: #### 3 040-3, 25847-1 ####[facility] LABORATORYCLIA [id number] [place] [address] [place] NURSING PROGon 11-17-2022 NURSING PROG Normal [facility] NURSING PROG Normal [facility] Ambulatory Visit Summaryon 1 Ambulatory Visit Summary Normal [facility] Family Medicine Office/Clini c Noteon 11-16-2022 Family Medicine Office/Clinic Note Normal [facility] Comment on above: Result Comment: Elec tronically Signed By: Jaquan Paula\.rene\Date and Time Signed: 11/16/22 10:42 EDT Basic metabolic 2000 panelon 11-12-2022 Anion gap [Moles/Vol] 12 mmol/L Normal 9-18 [facility] Comment on above: Order Comment: Speci men Type: BLOOD SPECIMENOrdering Facility: [facility] Address: [address] [address] Performed By: #### 2 4321-2 ####[facility] LABORATORYCLIA [id number] [place] [address] [place] Calcium [Mass/Vol] 8.8 mg/dL Normal 8.5-10.2 [facility] Comment on above: Order Comment: Speci men Type: BLOOD SPECIMENOrdering Facility: [facility] Address: [address] [address] Performed By: #### 2 4321-2 ####[facility] LABORATORYCLIA [id number] [place] [address] [place] Chloride [Moles/Vol] 104 mmol/L Normal 97-105 [facility] Comment on above: Order Comment: Speci men Type: BLOOD SPECIMENOrdering Facility: [facility] Address: [address] [place] [address] Performed By: #### 2 4321-2 ####[facility] LABORATORYCLIA [id number] [place] [id number] [place] [facility] [place] CO2 [Moles/Vol] 20 mmol/L Low 22-30 [facility] Comment on above: Order Comment: Speci men Type: BLOOD SPECIMENOrdering Facility: [facility] Address: [address] [place] [address] Performed By: #### 2 4321-2 ####[facility] LABORATORYCLIA [id number] [address] [place] Creatinine [Mass/Vol] 0.62 mg/dL Normal 0.58-0.96 [facility] Comment on above: Order Comment: Speci men Type: BLOOD SPECIMENOrdering Facility: [facility] Address: [address] [place] [address] Performed By: #### 2 4321-2 ####[facility] LABORATORYCLIA [id number] [address] Creatinine and Glomerular filtration rate.predicted panel (S/P/Bld) 121 mL/min/1.73m??? Normal >=60 [facility] Comment on above: Order Comment: Speci men Type: BLOOD SPECIMENOrdering Facility: [facility] Address: [address] [place] [address] Result Comment: Jessica mated Glomerular Filtration Rate [...] actual GFR. Performed By: #### 2 4321-2 ####[facility] LABORATORYCLIA [id number] [place] [address] [place] Glucose [Mass/Vol] 102 mg/dL High 74-99 [facility] Comment on above: Order Comment: Lyssai elida Type: BLOOD SPECIMENOrdering Facility: [facility] Address: [address] [place] [address] Result Comment: The [place] Diabetes Association (ADA) provides guidance for cutoff [...] Standards of Medical Care in Diabetes 2016, [place] [employer]. Diabetes Care. 2016.39(Suppl 1). Performed By: #### 2 4321-2 ####[facility] LABORATORYCLIA [id number] [place] [address] [place] Potassium [Moles/Vol] 4.2 mmol/L Normal 3.7-5.1 [facility] Comment on above: Order Comment: Geraldo elida Type: BLOOD SPECIMENOrdering Facility: [facility] Address: [address] [place] [address] Performed By: #### 2 4321-2 ####[facility] LABORATORYCLIA [id number] [place] [id number] [place] Sodium [Moles/Vol] 136 mmol/L Normal 136-144 [facility] Comment on above: Order Comment: Speci men Type: BLOOD SPECIMENOrdering Facility: [facility] Address: [address] [address] Performed By: #### 2 4321-2 ####[facility] LABORATORYCLIA [id number] [place] [address] [place] Urea nitrogen [Mass/Vol] 8 mg/dL Normal 7-21 [facility] Comment on above: Order Comment: Speci men Type: BLOOD SPECIMENOrdering Facility: [facility] Address: [address] [address] Performed By: #### 2 4321-2 ####[facility] LABORATORYCLIA [id number] [place] [address] [place] CBC W Auto Differential pane l (Bld)on 11-12-2022 Basophils (Bld) [#/Vol] 10*3/uL Normal <0.11 [facility] Comment on above: Order Comment: Speci men Type: BLOOD SPECIMENOrdering Facility: [facility] Address: [address] [place] [address] Performed By: #### 5 7021-8 ####[facility] LABORATORYCLIA [id number] [place] [address] [place] Basophils/100 WBC (Bld) 0.2 % Normal [facility] Comment on above: Order Comment: Speci men Type: BLOOD SPECIMENOrdering Facility: [facility] Address: [address] [address] Performed By: #### 5 7021-8 ####[facility] LABORATORYCLIA [id number] [place] [address] [place] Differential cell count method Nom (Bld) Auto Normal [facility] Comment on above: Order Comment: Speci men Type: BLOOD SPECIMENOrdering Facility: [facility] Address: [address] [address] Performed By: #### 5 7021-8 ####[facility] LABORATORYCLIA [id number] [place] [address] [place] Eosinophils (Bld) [#/Vol] 10*3/uL Normal <0.46 [facility] Comment on above: Order Comment: Speci men Type: BLOOD SPECIMENOrdering Facility: [facility] Address: [address] [address] Performed By: #### 5 7021-8 ####[facility] LABORATORYCLIA [id number] [place] [address] [place] Eosinophils/100 WBC (Bld) 0.0 % Normal [facility] Comment on above: Order Comment: Speci men Type: BLOOD SPECIMENOrdering Facility: [facility] Address: [address] [address] Performed By: #### 5 7021-8 ####[facility] LABORATORYCLIA [id number] [place] [address] [place] Erythrocyte distribution width (RBC) [Ratio] 12.6 % Normal 11.5-15.0 [facility] Comment on above: Order Comment: Speci men Type: BLOOD SPECIMENOrdering Facility: [facility] Address: [address] [place] [address] Performed By: #### 5 7021-8 ####[facility] LABORATORYCLIA [id number] [place] [address] [place] Hematocrit (Bld) [Volume fraction] 36.9 % Normal 36.0-46.0 [facility] Comment on above: Order Comment: Speci men Type: BLOOD SPECIMENOrdering Facility: [facility] Address: [address] [place] [address] Performed By: #### 5 7021-8 ####[facility] LABORATORYCLIA [id number] [place] [address] [place] Hemoglobin (Bld) [Mass/Vol] 12.8 g/dL Normal 11.5-15.5 [facility] Comment on above: Order Comment: Speci men Type: BLOOD SPECIMENOrdering Facility: [facility] Address: [address] [address] Performed By: #### 5 7021-8 ####[facility] LABORATORYCLIA [id number] [place] [address] [place] Immature granulocytes (Bld) [#/Vol] 0.08 10*3/uL Normal <0.10 [facility] Comment on above: Order Comment: Speci men Type: BLOOD SPECIMENOrdering Facility: [facility] Address: [address] [place] [address] Performed By: #### 5 7021-8 ####[facility] LABORATORYCLIA [id number] [address] [place] Immature granulocytes/100 WBC (Bld) 0.8 % Normal [facility] Comment on above: Order Comment: Speci men Type: BLOOD SPECIMENOrdering Facility: [facility] Address: [address] [place] [address] Performed By: #### 5 7021-8 ####[facility] LABORATORYCLIA [id number] [place] [address] [place] Lymphocytes (Bld) [#/Vol] 1.23 10*3/uL Normal 1.00-4.00 [facility] Comment on above: Order Comment: Speci men Type: BLOOD SPECIMENOrdering Facility: [facility] Address: [address] [place] [address] Performed By: #### 5 7021-8 ####[facility] LABORATORYCLIA [id number] [address] [place] [facility] Lymphocytes/100 WBC (Bld) 12.8 % Normal [facility] Comment on above: Order Comment: Speci men Type: BLOOD SPECIMENOrdering Facility: [facility] Address: [address] [place] [address] Performed By: #### 5 7021-8 ####[facility] LABORATORYCLIA [id number] [address] [place] MCH (RBC) [Entitic mass] 30.4 pg Normal 26.0-34.0 [facility] Comment on above: Order Comment: Speci men Type: BLOOD SPECIMENOrdering Facility: [facility] Address: [address] [place] [address] Performed By: #### 5 7021-8 ####[facility] LABORATORYCLIA [id number] [address] MCHC (RBC) [Mass/Vol] 34.7 g/dL Normal 30.5-36.0 [facility] Comment on above: Order Comment: Speci men Type: BLOOD SPECIMENOrdering Facility: [facility] Address: [address] [address] Performed By: #### 5 7021-8 ####[facility] LABORATORYCLIA [id number] [place] [id number] [place] MCV (RBC) [Entitic vol] 87.6 fL Normal 80.0-100.0 [facility] Comment on above: Order Comment: Speci men Type: BLOOD SPECIMENOrdering Facility: [facility] Address: [address] [address] Performed By: #### 5 7021-8 ####[facility] LABORATORYCLIA [id number] [place] [address] [place] Monocytes (Bld) [#/Vol] 0.42 10*3/uL Normal <0.87 [facility] Comment on above: Order Comment: Speci men Type: BLOOD SPECIMENOrdering Facility: [facility] Address: [address] [place] [address] Performed By: #### 5 7021-8 ####[facility] LABORATORYCLIA [id number] [address] [place] Monocytes/100 WBC (Bld) 4.4 % Normal [facility] Comment on above: Order Comment: Speci men Type: BLOOD SPECIMENOrdering Facility: [facility] Address: [address] [place] [address] Performed By: #### 5 7021-8 ####[facility] LABORATORYCLIA [id number] [place] [id number] [place] Neutrophils (Bld) [#/Vol] 7.84 10*3/uL High 1.45-7.50 [facility] Comment on above: Order Comment: Speci men Type: BLOOD SPECIMENOrdering Facility: [facility] Address: [address] [place] [address] Performed By: #### 5 7021-8 ####[facility] LABORATORYCLIA [id number] [address] [place] Neutrophils/100 WBC (Bld) 81.8 % Normal [facility] Comment on above: Order Comment: Speci men Type: BLOOD SPECIMENOrdering Facility: [facility] Address: [address] [address] Performed By: #### 5 7021-8 ####[facility] LABORATORYCLIA [id number] [place] [address] [place] Nucleated RBC (Bld) [#/Vol] 10*3/uL Normal <0.01 [facility] Comment on above: Order Comment: Speci men Type: BLOOD SPECIMENOrdering Facility: [facility] Address: [address] [address] Performed By: #### 5 7021-8 ####[facility] LABORATORYCLIA [id number] [address] [place] Nucleated RBC/100 WBC (Bld) [Ratio] 0.0 /100 WBC Normal [facility] Comment on above: Order Comment: Speci men Type: BLOOD SPECIMENOrdering Facility: [facility] Address: [address] [address] Performed By: #### 5 7021-8 ####[facility] LABORATORYCLIA [id number] [place] [address] [place] Platelet mean volume (Bld) [Entitic vol] 11.3 fL Normal 9.0-12.7 [facility] Comment on above: Order Comment: Speci men Type: BLOOD SPECIMENOrdering Facility: [facility] Address: [address] [address] Performed By: #### 5 7021-8 ####[facility] LABORATORYCLIA [id number] [place] [address] [place] Platelets (Bld) [#/Vol] 253 10*3/uL Normal 150-400 [facility] Comment on above: Order Comment: Speci men Type: BLOOD SPECIMENOrdering Facility: [facility] Address: [address] [address] Performed By: #### 5 7021-8 ####[facility] LABORATORYCLIA [id number] [place] [address] [place] RBC (Bld) [#/Vol] 4.21 10*6/uL Normal 3.90-5.20 [facility] Comment on above: Order Comment: Speci men Type: BLOOD SPECIMENOrdering Facility: [facility] Address: [address] [place] [address] Performed By: #### 5 7021-8 ####[facility] LABORATORYCLIA [id number] [place] [address] [place] WBC (Bld) [#/Vol] 9.59 10*3/uL Normal 3.70-11.00 [facility] Comment on above: Order Comment: Speci men Type: BLOOD SPECIMENOrdering Facility: [facility] Address: [address] [place] [address] Performed By: #### 5 7021-8 ####[facility] LABORATORYCLIA [id number] [address] [place] CNDSon 11-12-2022 CNDS Normal [facility] CNPNon 11-12-2022 CNPN Normal [facility] NURSING PROGon 11-12-2022 NURSING PROG [facility] NUTRITIONon 11-12-2022 NUTRITION Normal [facility] ANES POSTPROC EVALon 023 ANES POSTPROC EVAL Normal [facility] ANES PRE-OPon 11-11-2022 ANES PRE-OP [facility] BRIEF OP NOTon 11-11-2022 BRIEF OP NOT [facility] ERCPon 11-11-2022 ERCP Normal [facility] NURSING PROGon 11-11-2022 NURSING PROG [facility] OPERATIVE NOon 11-11-2022 OPERATIVE NO [facility] PT EDon 11-11-2022 PT ED Normal [facility] TYPE + SCREENon 11-11-2022 ABO O [facility] Comment on above: Order Comment: Speci men Type: BLOOD SPECIMENOrdering Facility: [facility] Address: [address] [place] [address] Performed By: #### T SCR ####[facility] BANKCLIA [id number] [address] [place] HISTORICAL AB SCR STATUS Negative [facility] Comment on above: Order Comment: Speci men Type: BLOOD SPECIMENOrdering Facility: [facility] Address: [address] [address] Performed By: #### T SCR ####[facility] BANKCLIA [id number] [place] [id number] [place] Rh Nom (Bld) Positive Normal [facility] Comment on above: Order Comment: Speci men Type: BLOOD SPECIMENOrdering Facility: [facility] Address: [address] [address] Performed By: #### T SCR ####[facility] BANKCLIA [id number] [address] OF [facility] TYPE AND SCREEN EXPIRATION 11/14/2022 23:59 Normal [facility] Comment on above: Order Comment: Speci men Type: BLOOD SPECIMENOrdering Facility: [facility] Address: [address] [address] Performed By: #### T SCR ####[facility]LO[facility] BANKCLIA [id number] [place] [address] [place] XR ERCP READ ONLYon 11-12-19 XR ERCP READ ONLY Normal [facility] CNCOon 11-10-2022 CNCO Letter Text Normal [facility] CNPNon 11-10-2022 CNPN Normal [facility] CNPNon 11-09-2022 CNPN Normal [facility] Population Healthon 11-10-19 23 Population Health Normal [facility] CNDSon 11-08-2022 CNDS Normal [facility] Basic metabolic 2000 panelon 11-06-2022 Anion gap [Moles/Vol] 8 mmol/L Low -18 [facility] Comment on above: Order Comment: Speci men Type: BLOOD SPECIMENOrdering Facility: [facility] Address: [address] [address] Performed By: #### 2 4321-2 ####[facility] LABORATORYCLIA [id number] [facility] [place] [address] [place] Calcium [Mass/Vol] 8.6 mg/dL Normal 8.5-10.2 [facility] Comment on above: Order Comment: Speci men Type: BLOOD SPECIMENOrdering Facility: [facility] Address: [address] [place] [address] Performed By: #### 2 4321-2 ####[facility] LABORATORYCLIA [id number] [place] [address] [place] Chloride [Moles/Vol] 108 mmol/L High 97-105 [facility] Comment on above: Order Comment: Speci men Type: BLOOD SPECIMENOrdering Facility: [facility] Address: [address] [address] Performed By: #### 2 4321-2 ####[facility] LABORATORYCLIA [id number] [place] [address] [place] CO2 [Moles/Vol] 24 mmol/L Normal 22-30 [facility] Comment on above: Order Comment: Speci men Type: BLOOD SPECIMENOrdering Facility: [facility] Address: [address] [place] [address] Performed By: #### 2 4321-2 ####[facility] LABORATORYIA [id number] [place] [id number] [place] Creatinine [Mass/Vol] 0.74 mg/dL Normal 0.58-0.96 [facility] Comment on above: Order Comment: Speci men Type: BLOOD SPECIMENOrdering Facility: [facility] Address: [address] [place] [address] Performed By: #### 2 4321-2 ####[facility] LABORATORYCLIA [id number] [place] [address] [place] Creatinine and Glomerular filtration rate.predicted panel (S/P/Bld) 110 mL/min/1.73m??? Normal >=60 [facility] Comment on above: Order Comment: Speci men Type: BLOOD SPECIMENOrdering Facility: [facility] Address: [address] [place] [address] Result Comment: Jessica mated Glomerular Filtration Rate [...] actual GFR. Performed By: #### 2 4321-2 ####[facility] LABORATORYIA [id number] [place] [address] [place] Glucose [Mass/Vol] 82 mg/dL Normal 74-99 [facility] Comment on above: Order Comment: Speci men Type: BLOOD SPECIMENOrdering Facility: [facility] Address: [address] [id number] Result Comment: The [employer] Diabetes Association (ADA) provides guidance for cutoff [...] Standards of Medical Care in Diabetes 2016, [place] Diabetes Association. Diabetes Care. 2016.39(Suppl 1). Performed By: #### 2 4321-2 ####[facility] LABORATORYCLIA [id number] [place] [address] [place] Potassium [Moles/Vol] 3.9 mmol/L Normal 3.7-5.1 [facility] Comment on above: Order Comment: Speci men Type: BLOOD SPECIMENOrdering Facility: [facility] Address: [address] [place] [address] Performed By: #### 2 4321-2 ####[facility] LABORATORYCLIA [id number] [place] [address] [place] Sodium [Moles/Vol] 140 mmol/L Normal 136-144 [facility] Comment on above: Order Comment: Speci men Type: BLOOD SPECIMENOrdering Facility: [facility] Address: [address] [address] Performed By: #### 2 4321-2 ####[facility] LABORATORYCLIA [id number] [place] [address] [place] Urea nitrogen [Mass/Vol] 8 mg/dL Normal 7-21 [facility] Comment on above: Order Comment: Speci men Type: BLOOD SPECIMENOrdering Facility: [facility] Address: [address] [address] Performed By: #### 2 4321-2 ####[facility]ITAL[facility] [id number] [place] [address] [place] CASE MGT INIT ASSon 2022 CASE MGT INIT [facility] CBC panel Auto (Bld)on 11-06 Erythrocyte distribution width (RBC) [Ratio] 13.3 % Normal 11.5-15.0 [facility] Comment on above: Order Comment: Speci men Type: BLOOD SPECIMENOrdering Facility: [facility] Address: [address] [place] [address] Performed By: #### 5 8410-2 ####[facility]ITALIA [id number] [place] [address] [place] Hematocrit (Bld) [Volume fraction] 34.5 % Low 36.0-46.0 [facility] Comment on above: Order Comment: Speci men Type: BLOOD SPECIMENOrdering Facility: [facility] Address: [address] [address] Performed By: #### 5 8410-2 ####[facility] LABORATORYIA [id number] [place] [id number] [place] Hemoglobin (Bld) [Mass/Vol] 11.4 g/dL Low 11.5-15.5 [facility] Comment on above: Order Comment: Speci men Type: BLOOD SPECIMENOrdering Facility: [facility] Address: [address] [place] [address] Performed By: #### 5 8410-2 ####[facility]IA [id number] [address] [place] [facility] MCH (RBC) [Entitic mass] 30.8 pg Normal 26.0-34.0 [facility] Comment on above: Order Comment: Speci men Type: BLOOD SPECIMENOrdering Facility: [facility] Address: [address] [address] Performed By: #### 5 8410-2 ####[facility]ITALIA [id number] [address] [place] MCHC (RBC) [Mass/Vol] 33.0 g/dL Normal 30.5-36.0 [facility] Comment on above: Order Comment: Speci men Type: BLOOD SPECIMENOrdering Facility: [facility] Address: [address] [place] [address] Performed By: #### 5 8410-2 ####[facility] [id number] [address] [place] MCV (RBC) [Entitic vol] 93.2 fL Normal 80.0-100.0 [facility] Comment on above: Order Comment: Speci men Type: BLOOD SPECIMENOrdering Facility: [facility] Address: [address] [place] [address] Performed By: #### 5 8410-2 ####[facility]ITALIA [id number] [address] Nucleated RBC (Bld) [#/Vol] 10*3/uL Normal <0.01 [facility] Comment on above: Order Comment: Speci men Type: BLOOD SPECIMENOrdering Facility: [facility] Address: [address] [place] [address] Performed By: #### 5 8410-2 ####[facility]ATORYPOR[facility] [id number] [address] [place] Platelet mean volume (Bld) [Entitic vol] 11.3 fL Normal 9.0-12.7 [facility] Comment on above: Order Comment: Speci men Type: BLOOD SPECIMENOrdering Facility: [facility] Address: [address] Performed By: #### 5 8410-2 ####[facility] LABORATORYIA [id number] [place] [address] [place] Platelets (Bld) [#/Vol] 225 10*3/uL Normal 150-400 [facility] Comment on above: Order Comment: Speci men Type: BLOOD SPECIMENOrdering Facility: [facility] Address: [address] Performed By: #### 5 8410-2 ####[facility] [id number] [place] [address] [place] RBC (Bld) [#/Vol] 3.70 10*6/uL Low 3.90-5.20 [facility] Comment on above: Order Comment: Speci men Type: BLOOD SPECIMENOrdering Facility: [facility] Address: [address] Performed By: #### 5 8410-2 ####[facility] [id number] [place] [id number] [place] WBC (Bld) [#/Vol] 3.98 10*3/uL Normal 3.70-11.00 [facility] Comment on above: Order Comment: Speci men Type: BLOOD SPECIMENOrdering Facility: [facility] Address: [address] Performed By: #### 5 8410-2 ####[facility] [id number] [place] [id number] [place] CNPNon 11-06-2022 CNPN Normal [facility] CONSULT PROGon 11-06-2022 CONSULT PROG Normal [facility] CONSULT PROG Normal [facility] NM HEPATOBILIARY W EF AND/OR RXon 11-06-2022 NM HEPATOBILIARY W EF AND/OR RX [facility] CBC W Auto Differential pane l (Bld)on 11-05-2022 Basophils (Bld) [#/Vol] 0.03 10*3/uL Normal <0.11 [facility] Comment on above: Order Comment: Speci men Type: BLOOD SPECIMENOrdering Facility: [facility] Address: [address] [address] Performed By: #### 5 7021-8 ####[facility] LABORATORYCLIA [id number] [place] [address] [place] Basophils/100 WBC (Bld) 0.6 % Normal [facility] Comment on above: Order Comment: Speci men Type: BLOOD SPECIMENOrdering Facility: [facility] Address: [address] [address] Performed By: #### 5 7021-8 ####[facility] [id number] [place] [address] [place] Differential cell count method Nom (Bld) Auto Normal [facility] Comment on above: Order Comment: Speci men Type: BLOOD SPECIMENOrdering Facility: [facility] Address: [address] [address] Performed By: #### 5 7021-8 ####[facility]ITALIA [id number] [place] [address] [place] Eosinophils (Bld) [#/Vol] 0.08 10*3/uL Normal <0.46 [facility] Comment on above: Order Comment: Speci men Type: BLOOD SPECIMENOrdering Facility: [facility] Address: [address] [address] Performed By: #### 5 7021-8 ####[facility] LABORATORYIA [id number] [place] [address] [place] Eosinophils/100 WBC (Bld) 1.5 % [facility] Comment on above: Order Comment: Speci men Type: BLOOD SPECIMENOrdering Facility: [facility] Address: [address] [address] Performed By: #### 5 7021-8 ####[facility] LABORATORYCLIA [id number] [place] [address] [place] Erythrocyte distribution width (RBC) [Ratio] 13.3 % Normal 11.5-15.0 [facility] Comment on above: Order Comment: Speci men Type: BLOOD SPECIMENOrdering Facility: [facility] Address: [address] [place] [address] Performed By: #### 5 7021-8 ####[facility] LABORATORYIA [id number] [place] [address] [place] Hematocrit (Bld) [Volume fraction] 40.5 % Normal 36.0-46.0 [facility] Comment on above: Order Comment: Speci men Type: BLOOD SPECIMENOrdering Facility: [facility] Address: [address] [place] [address] Performed By: #### 5 7021-8 ####[facility] [id number] [place] [address] [place] Hemoglobin (Bld) [Mass/Vol] 13.3 g/dL Normal 11.5-15.5 [facility] Comment on above: Order Comment: Speci men Type: BLOOD SPECIMENOrdering Facility: [facility] Address: [address] [place] [address] Performed By: #### 5 7021-8 ####[facility] LABORATORYIA [id number] [place] [address] [place] Immature granulocytes (Bld) [#/Vol] 10*3/uL Normal <0.10 [facility] Comment on above: Order Comment: Speci men Type: BLOOD SPECIMENOrdering Facility: [facility] Address: [address] [place] [address] Performed By: #### 5 7021-8 ####[facility] LABORATORYIA [id number] [address] [place] Immature granulocytes/100 WBC (Bld) 0.4 % Normal [facility] Comment on above: Order Comment: Speci men Type: BLOOD SPECIMENOrdering Facility: [facility] Address: [address] [address] Performed By: #### 5 7021-8 ####[facility] [id number] [address] [place] Lymphocytes (Bld) [#/Vol] 2.53 10*3/uL Normal 1.00-4.00 [facility] Comment on above: Order Comment: Speci men Type: BLOOD SPECIMENOrdering Facility: [facility] Address: [address] [address] Performed By: #### 5 7021-8 ####[facility] LABORATORYIA [id number] [address] [place] Lymphocytes/100 WBC (Bld) 48.5 % Normal [facility] Comment on above: Order Comment: Speci men Type: BLOOD SPECIMENOrdering Facility: [facility] Address: [address] [address] Performed By: #### 5 7021-8 ####[facility] [id number] [address] [place] MCH (RBC) [Entitic mass] 30.4 pg Normal 26.0-34.0 [facility] Comment on above: Order Comment: Speci men Type: BLOOD SPECIMENOrdering Facility: [facility] Address: [address] [address] Performed By: #### 5 7021-8 ####[facility] LABORATORYIA [id number] [address] [place] MCHC (RBC) [Mass/Vol] 32.8 g/dL Normal 30.5-36.0 [facility] Comment on above: Order Comment: Speci men Type: BLOOD SPECIMENOrdering Facility: [facility] Address: [address] [address] Performed By: #### 5 7021-8 ####[facility] LABORATORYIA [id number] [place] [address] [place] MCV (RBC) [Entitic vol] 92.7 fL Normal 80.0-100.0 [facility] Comment on above: Order Comment: Speci men Type: BLOOD SPECIMENOrdering Facility: [facility] Address: [address] [address] Performed By: #### 5 7021-8 ####[facility] LABORATORYIA [id number] [place] [id number] [place] Monocytes (Bld) [#/Vol] 0.30 10*3/uL Normal <0.87 [facility] Comment on above: Order Comment: Speci men Type: BLOOD SPECIMENOrdering Facility: [facility] Address: [address] [place] [address] Performed By: #### 5 7021-8 ####[facility] [id number] [address] [place] Monocytes/100 WBC (Bld) 5.7 % Normal [facility] Comment on above: Order Comment: Speci men Type: BLOOD SPECIMENOrdering Facility: [facility] Address: [address] [place] [address] Performed By: #### 5 7021-8 ####[facility]IA [id number] [place] [address] [place] Neutrophils (Bld) [#/Vol] 2.26 10*3/uL Normal 1.45-7.50 [facility] Comment on above: Order Comment: Speci men Type: BLOOD SPECIMENOrdering Facility: [facility] Address: [address] [address] Performed By: #### 5 7021-8 ####[facility] LABORATORYIA [id number] [place] [id number] [place] Neutrophils/100 WBC (Bld) 43.3 % Normal [facility] Comment on above: Order Comment: Speci men Type: BLOOD SPECIMENOrdering Facility: [facility] Address: [address] [place] [address] Performed By: #### 5 7021-8 ####[facility] LABORATORYCLIA [id number] [place] [place] [address] [place] Nucleated RBC (Bld) [#/Vol] 10*3/uL Normal <0.01 [facility] Comment on above: Order Comment: Speci men Type: BLOOD SPECIMENOrdering Facility: [facility] Address: [address] [place] [address] Performed By: #### 5 7021-8 ####[facility] LABORATORYCLIA [id number] [place] [address] [place] Nucleated RBC/100 WBC (Bld) [Ratio] 0.0 /100 WBC Normal [facility] Comment on above: Order Comment: Speci men Type: BLOOD SPECIMENOrdering Facility: [facility] Address: [address] [place] [address] Performed By: #### 5 7021-8 ####[facility] LABORATORYIA [id number] [facility] [address] [place] Platelet mean volume (Bld) [Entitic vol] 11.4 fL Normal 9.0-12.7 [facility] Comment on above: Order Comment: Speci men Type: BLOOD SPECIMENOrdering Facility: [facility] Address: [address] [place] [address] Performed By: #### 5 7021-8 ####[facility] LABORATORYIA [id number] [place] [address] [place] Platelets (Bld) [#/Vol] 207 10*3/uL Normal 150-400 [facility] Comment on above: Order Comment: Speci men Type: BLOOD SPECIMENOrdering Facility: [facility] Address: [address] [place] [address] Performed By: #### 5 7021-8 ####[facility] LABORATORYIA [id number] [facility] [place] [address] [place] RBC (Bld) [#/Vol] 4.37 10*6/uL Normal 3.90-5.20 [facility] Comment on above: Order Comment: Speci men Type: BLOOD SPECIMENOrdering Facility: [facility] Address: [address] [address] Performed By: #### 5 7021-8 ####[facility] LABORATORYCLIA [id number] [place] [address] [place] WBC (Bld) [#/Vol] 5.22 10*3/uL Normal 3.70-11.00 [facility] Comment on above: Order Comment: Speci men Type: BLOOD SPECIMENOrdering Facility: [facility] Address: [address] [address] Performed By: #### 5 7021-8 ####[facility] [id number] [place] [address] [place] CNPNon 11-05-2022 CNPN Normal [facility] CONSULTon 11-05-2022 CONSULT Normal [facility] CONSULT Normal [facility] Comprehensive metabolic 2000 panelon 11-05-2022 Albumin [Mass/Vol] 4.2 g/dL Normal 3.9-4.9 [facility] Comment on above: Order Comment: Speci men Type: BLOOD SPECIMENOrdering Facility: [facility] Address: [address] [address] Performed By: #### 2 4323-8, 3040-3 ####[facility] LABORATORYCLIA [id number] [place] [address] [place] ALP [Catalytic activity/Vol] 71 U/L Normal 34-123 [facility] Comment on above: Order Comment: Speci men Type: BLOOD SPECIMENOrdering Facility: [facility] Address: [address] [address] Performed By: #### 2 4323-8, 3040-3 ####[facility] LABORATORYIA [id number] [place] [address] [place] ALT [Catalytic activity/Vol] 15 U/L Normal 7-38 [facility] Comment on above: Order Comment: Speci men Type: BLOOD SPECIMENOrdering Facility: [facility] Address: [address] [address] Performed By: #### 2 4323-8, 3039-3 ####[facility] LABORATORYCLIA [id number] [place] [address] [place] Anion gap [Moles/Vol] 12 mmol/L Normal 9-18 [facility] Comment on above: Order Comment: Speci men Type: BLOOD SPECIMENOrdering Facility: [facility] Address: [address] [address] Performed By: #### 2 4323-8, 3039-3 ####[facility] LABORATORYCLIA [id number] [place] [address] [place] AST [Catalytic activity/Vol] 26 U/L Normal 13-35 [facility] Comment on above: Order Comment: Speci men Type: BLOOD SPECIMENOrdering Facility: [facility] Address: [address] [address] Performed By: #### 2 4323-8, 3039-3 ####[facility]IA [id number] [place] [address] [place] Bilirubin [Mass/Vol] 0.4 mg/dL Normal 0.2-1.3 [facility] Comment on above: Order Comment: Speci men Type: BLOOD SPECIMENOrdering Facility: [facility] Address: [address] [address] Performed By: #### 2 4323-8, 3039-3 ####[facility] LABORATORYCLIA [id number] [place] [address] [place] Calcium [Mass/Vol] 8.6 mg/dL Normal 8.5-10.2 [facility] Comment on above: Order Comment: Speci men Type: BLOOD SPECIMENOrdering Facility: [facility] Address: [address] [address] Performed By: #### 2 4323-8, 0-3 ####[facility] LABORATORYCLIA [id number] [place], [place] [id number] [place] [address] [place] Chloride [Moles/Vol] 107 mmol/L High 97-105 [facility] Comment on above: Order Comment: Speci men Type: BLOOD SPECIMENOrdering Facility: [facility] Address: [address] [address] Performed By: #### 2 4323-8, 3040-3 ####[facility] LABORATORYCLIA [id number] [place] [address] [place] CO2 [Moles/Vol] 22 mmol/L Normal 22-30 [facility] Comment on above: Order Comment: Speci men Type: BLOOD SPECIMENOrdering Facility: [facility] Address: [address] [address] Performed By: #### 2 4323-8, 3040-3 ####[facility] LABORATORYCLIA [id number] [address] [place] Creatinine [Mass/Vol] 0.87 mg/dL Normal 0.58-0.96 [facility] Comment on above: Order Comment: Speci men Type: BLOOD SPECIMENOrdering Facility: [facility] Address: [address] [address] Performed By: #### 2 4323-8, 0-3 ####[facility] LABORATORYIA [id number] [place], [place] [address] [place] [address] Creatinine and Glomerular filtration rate.predicted panel (S/P/Bld) 90 mL/min/1.73m??? Normal >=60 [facility] Comment on above: Order Comment: Speci men Type: BLOOD SPECIMENOrdering Facility: [facility] Address: [address] [place] [address] Result Comment: Jessica mated Glomerular Filtration Rate [...] GFR. Performed By: #### 2 4323-8, 0-3 ####[facility] LABORATORYCLIA [id number] [place] [address] [place] Glucose [Mass/Vol] 87 mg/dL Normal 74-99 [facility] Comment on above: Order Comment: Speci men Type: BLOOD SPECIMENOrdering Facility: [facility] Address: [address] [place] [address] Result Comment: The [employer] Diabetes Association (ADA) provides guidance for cutoff [...] Standards of Medical Care in Diabetes 2016, [place]. Diabetes Care. 2016.39(Suppl 1). Performed By: #### 2 4323-8, 3039-3 ####[facility]IA [id number] [place] [address] [place] Potassium [Moles/Vol] 3.5 mmol/L Low 3.7-5.1 [facility] Comment on above: Order Comment: Speci men Type: BLOOD SPECIMENOrdering Facility: [facility] Address: [address] Performed By: #### 2 4323-8, 3039-3 ####[facility]IA [id number] [place] [address] [place] Protein [Mass/Vol] 6.6 g/dL Normal 6.3-8.0 [facility] Comment on above: Order Comment: Speci men Type: BLOOD SPECIMENOrdering Facility: [facility] Address: [address] [address] Performed By: #### 2 4323-8, 3040-3 ####[facility] LABORATORYCLIA [id number] [facility] [place] [address] [place] [facility] Sodium [Moles/Vol] 141 mmol/L Normal 136-144 [facility] Comment on above: Order Comment: Speci men Type: BLOOD SPECIMENOrdering Facility: [facility] Address: [address] [address] Performed By: #### 2 4323-8, 3040-3 ####[facility] LABORATORYCLIA [id number] [facility] [place] [address] [place] Urea nitrogen [Mass/Vol] 9 mg/dL Normal 7- [facility] Comment on above: Order Comment: Speci men Type: BLOOD SPECIMENOrdering Facility: [facility] Address: [address] [address] Performed By: #### 2 4323-8, 3040-3 ####[facility] LABORATORYCLIA [id number] [facility] [place] [address] [place] ECG COMPLETEon 11-05-2022 ECG COMPLETE [facility] NOTEon 11-05-2022 ED NOTE HNO ID: [id number] Author: Neeta Mario RN Service: ? Author Type: Registered Nurse Type: ED Notes Filed: 11/05/2022 1:56 PM Note Text: Attempt to call report, Nurse taking patient is ROHIT. Will return call when nurse available. Normal [facility] ED NOTE HNO ID: [id number] Author: Neeta Mario RN Service: ? Author Type: Registered Nurse Type: ED Notes Filed: 11/05/2022 1:28 PM Note Text: Patient refused all daily meds but reglan due to nausea. Normal [facility] ED PROV NOTEon 11-05-2022 ED PROV NOTE Normal [facility] HISTORY PHYSICALon HISTORY PHYSICAL Normal [facility] pital Lipase SerPl-cCncon 11-06-19 23 Lipase [Catalytic activity/Vol] 38 U/L Normal 16-61 [facility] Comment on above: Order Comment: Speci men Type: BLOOD SPECIMENOrdering Facility: [facility] Address: [address] [address] Performed By: #### 2 4323-8, 3040-3 ####[facility] LABORATORYCLIA [id number] [facility] [address] [place] NURSING PROGon 11-05-2022 NURSING PROG Normal [facility] XR ABD 2V SUPINE W UPR/DECUB /CTLon 11-05-2022 XR ABD 2V SUPINE W UPR/DECUB/CTL Normal [facility] 25(OH)D3 SerPl-ncon 2022 25-hydroxyvitamin D3 [Mass/Vol] 29.0 ng/mL Low 31.0-80.0 [facility] Comment on above: Order Comment: Speci men Type: BLOOD SPECIMENOrdering Facility: [facility] Address: [address] [place] [address] Result Comment: Clas sification of 25 [place] Vitamin D status:Deficiency/Insufficiency: < or = 30 ng/ml.Sufficiency/Optimal Levels: 31-80 ng/mLToxicity: > 100 ng/mL.Test performed by chemiluminescent immunoassay. Performed By: #### 1 989-3 ####[facility] LABCLIA [id number] [place] [address] [place] Amylase SerPl-cCncon 023 Amylase [Catalytic activity/Vol] 40 U/L Normal 30-104 [facility] Comment on above: Order Comment: Speci men Type: BLOOD SPECIMENOrdering Facility: [facility] Address: [address] [place], [place] [address] Performed By: #### 1 798-8, 2731-8, 2284-8, 2132-9 ####[facility] LABIA [id number] [place] [address] [place] CBC panel Auto (Bld)on 11-04 Erythrocyte distribution width (RBC) [Ratio] 13.2 % Normal 11.5-15.0 [facility] Comment on above: Order Comment: Speci men Type: BLOOD SPECIMENOrdering Facility: [facility] Address: [address] Performed By: #### 5 8410-2 ####[facility] [id number] [place] [address] [place] Hematocrit (Bld) [Volume fraction] 40.5 % Normal 36.0-46.0 [facility] Comment on above: Order Comment: Speci men Type: BLOOD SPECIMENOrdering Facility: [facility] Address: [address] Performed By: #### 5 8410-2 ####[facility] [id number] [place] [address] [place] Hemoglobin (Bld) [Mass/Vol] 13.6 g/dL Normal 11.5-15.5 [facility] Comment on above: Order Comment: Speci men Type: BLOOD SPECIMENOrdering Facility: [facility] Address: [address] Performed By: #### 5 8410-2 ####[facility] [id number] [place] [address] [place] MCH (RBC) [Entitic mass] 30.7 pg Normal 26.0-34.0 [facility] Comment on above: Order Comment: Speci men Type: BLOOD SPECIMENOrdering Facility: [facility] Address: [address] Performed By: #### 5 8410-2 ####[facility] [id number] [place] [address] [place] MCHC (RBC) [Mass/Vol] 33.6 g/dL Normal 30.5-36.0 [facility] Comment on above: Order Comment: Speci men Type: BLOOD SPECIMENOrdering Facility: [facility] Address: [address] Performed By: #### 5 8410-2 ####[facility] [id number] [place] [address] [place] MCV (RBC) [Entitic vol] 91.4 fL Normal 80.0-100.0 [facility] Comment on above: Order Comment: Speci men Type: BLOOD SPECIMENOrdering Facility: [facility] Address: [address] [place] [phone] Performed By: #### 5 8410-2 ####[facility] [id number] [place] [address] [place] Nucleated RBC (Bld) [#/Vol] 10*3/uL Normal <0.01 [facility] Comment on above: Order Comment: Speci men Type: BLOOD SPECIMENOrdering Facility: [facility] Address: [address] [place] [phone] Performed By: #### 5 8410-2 ####[facility] [id number] [place] [address] [place] Platelet mean volume (Bld) [Entitic vol] 12.1 fL Normal 9.0-12.7 [facility] Comment on above: Order Comment: Speci men Type: BLOOD SPECIMENOrdering Facility: [facility] Address: [address] [place] [address] Performed By: #### 5 8410-2 ####[facility] [id number] [place] [address] [place] Platelets (Bld) [#/Vol] 313 10*3/uL Normal 150-400 [facility] Comment on above: Order Comment: Speci men Type: BLOOD SPECIMENOrdering Facility: [facility] Address: [address] [place] [address] Performed By: #### 5 8410-2 ####[facility] [id number] [address] [place] RBC (Bld) [#/Vol] 4.43 10*6/uL Normal 3.90-5.20 [facility] Comment on above: Order Comment: Speci men Type: BLOOD SPECIMENOrdering Facility: [facility] Address: [address] [place] [address] Performed By: #### 5 8410-2 ####[facility] LABCLIA [id number] [place] [address] [place] WBC (Bld) [#/Vol] 6.69 10*3/uL Normal 3.70-11.00 [facility] Comment on above: Order Comment: Speci men Type: BLOOD SPECIMENOrdering Facility: [facility] Address: [address] [place] [address] Performed By: #### 5 8410-2 ####[facility] [id number] [place] [address] [place] CNCOon 11-04-2022 CNCO Letter Text Normal [facility] CNOVon 11-04-2022 CNOV Normal [facility] Comprehensive metabolic 2000 panelon 11-04-2022 Albumin [Mass/Vol] 4.3 g/dL Normal 3.9-4.9 [facility] Comment on above: Order Comment: Speci men Type: BLOOD SPECIMENOrdering Facility: [facility] Address: [address] [place], [place] [id number] Performed By: #### 2 276-4, 20625-3, 69606-5, 3040-3 ####[facility] [id number] [place] [address] [place] ALP [Catalytic activity/Vol] 69 U/L Normal 34-123 [facility] Comment on above: Order Comment: Speci men Type: BLOOD SPECIMENOrdering Facility: [facility] Address: [address] [place], [place] [address] Performed By: #### 2 276-4, 57658-6, 86081-6, 0-3 ####[facility]CL[facility] [id number] [place] [address] [place] ALT [Catalytic activity/Vol] 16 U/L Normal 7-38 [facility] Comment on above: Order Comment: Speci men Type: BLOOD SPECIMENOrdering Facility: [facility] Address: [address] [place] [address] Performed By: #### 2 276-4, 28444-2, 60890-2, 0-3 ####[facility]CL[facility] [id number] [place] [address] [place] Anion gap [Moles/Vol] 13 mmol/L Normal 9-18 [facility] Comment on above: Order Comment: Speci men Type: BLOOD SPECIMENOrdering Facility: [facility] Address: [address] [place] [address] Performed By: #### 2 276-4, 87871-5, 49982-9, 0-3 ####[facility] [id number] [place] [address] [place] AST [Catalytic activity/Vol] 25 U/L Normal 13-35 [facility] Comment on above: Order Comment: Speci men Type: BLOOD SPECIMENOrdering Facility: [facility] Address: [address] [place], [place] [address] Performed By: #### 2 276-4, 70336-5, 23673-5, 3040-3 ####[facility] LABCLIA [id number] [place] [id number] [place] Bilirubin [Mass/Vol] 0.3 mg/dL Normal 0.2-1.3 [facility] Comment on above: Order Comment: Speci men Type: BLOOD SPECIMENOrdering Facility: [facility] Address: [address] [place] [address] Performed By: #### 2 276-4, 84111-2, 82532-7, 3040-3 ####[facility] LABCLIA [id number] [address] [address] [place] Calcium [Mass/Vol] 9.1 mg/dL Normal 8.5-10.2 [facility] Comment on above: Order Comment: Speci men Type: BLOOD SPECIMENOrdering Facility: [facility] Address: [address] [place] [address] Performed By: #### 2 276-4, 39199-6, 12971-6, 0-3 ####[facility]CL[facility] [id number] [place] [address] [place] Chloride [Moles/Vol] 105 mmol/L Normal 97-105 [facility] Comment on above: Order Comment: Speci men Type: BLOOD SPECIMENOrdering Facility: [facility] Address: [address] [place] [address] Performed By: #### 2 276-4, 87748-7, 41038-3, 3040-3 ####[facility] [id number] [place] [address] [place] CO2 [Moles/Vol] 19 mmol/L Low 22-30 [facility] Comment on above: Order Comment: Speci men Type: BLOOD SPECIMENOrdering Facility: [facility] Address: [address] [place], [place] [address] Performed By: #### 2 276-4, 50615-2, 59609-0, 3040-3 ####[facility]CL[facility] [id number] [address] [address] [place] Creatinine [Mass/Vol] 0.77 mg/dL Normal 0.58-0.96 [facility] Comment on above: Order Comment: Speci men Type: BLOOD SPECIMENOrdering Facility: [facility] Address: [address] [place], [place] [address] Performed By: #### 2 276-4, 34462-3, 12573-2, 3040-3 ####[facility] [id number] [place] [address] [place] Creatinine and Glomerular filtration rate.predicted panel (S/P/Bld) 105 mL/min/1.73m??? Normal >=60 [facility] Comment on above: Order Comment: Geraldo elida Type: BLOOD SPECIMENOrdering Facility: [facility] Address: [address] [place] [address] Result Comment: Jessica mated Glomerular Filtration Rate [...] reflect actual GFR. Performed By: #### 2 276-4, 60613-0, 89541-1, 3040-3 ####[facility] [id number] [place] [address] [place] Glucose [Mass/Vol] 224 mg/dL High 74-99 [facility] Comment on above: Order Comment: Geraldo marrero Type: BLOOD SPECIMENOrdering Facility: [facility] Address: [address] [place] [address] Result Comment: The [place] Diabetes [employer] (ADA) provides guidance for cutoff [...] Standards of Medical Care in Diabetes 2016, [place] [employer]. Diabetes Care. 2016.39(Suppl 1). Performed By: #### 2 276-4, 26257-7, 37684-2, 3040-3 ####[facility]CL[facility] [id number] [place] [address] [place] Potassium [Moles/Vol] 3.7 mmol/L Normal 3.7-5.1 [facility] Comment on above: Order Comment: Speci men Type: BLOOD SPECIMENOrdering Facility: [facility] Address: [address] [place] [address] Performed By: #### 2 276-4, 99664-4, 99528-3, 3040-3 ####[facility] [id number] [place] [address] [place] Protein [Mass/Vol] 6.9 g/dL Normal 6.3-8.0 [facility] Comment on above: Order Comment: Speci men Type: BLOOD SPECIMENOrdering Facility: [facility] Address: [address] [place], [place] [address] Performed By: #### 2 276-4, 15021-0, 82406-1, 3040-3 ####[facility] [id number] [place] [address] [place] Sodium [Moles/Vol] 137 mmol/L Normal 136-144 [facility] Comment on above: Order Comment: Speci men Type: BLOOD SPECIMENOrdering Facility: [facility] Address: [address] [place] [address] Performed By: #### 2 276-4, 61315-5, 19093-3, 3040-3 ####[facility]CL[facility] [id number] [place] [id number] [place] Urea nitrogen [Mass/Vol] 9 mg/dL Normal 7-21 [facility] Comment on above: Order Comment: Speci men Type: BLOOD SPECIMENOrdering Facility: [facility] Address: [address] [place], [place] [address] Performed By: #### 2 276-4, 06387-0, 75101-2, 3040-3 ####[facility]CL[facility] [id number] [place] [address] [place] Ferritin [facility] 2022 Ferritin [Mass/Vol] 13.2 ng/mL Low 14.7-205.1 [facility] Comment on above: Order Comment: Speci men Type: BLOOD SPECIMENOrdering Facility: [facility] Address: [address] [place] [address] Performed By: #### 2 276-4, 93777-5, 45455-2, 3040-3 ####[facility]CL[facility] [id number] [place] [address] [place] Folate SerPl-mCncon 11-05-19 Folate [Mass/Vol] 9.3 ng/mL Normal >4.7 [facility] Comment on above: Order Comment: Speci men Type: BLOOD SPECIMENOrdering Facility: [facility] Address: [address] [place] [address] Performed By: #### 1 798-8, 2731-8, 2284-8, 2132-9 ####[facility] [id number] [place] [address] [place] Iron and Iron binding capaci ty panelon 11-04-2022 Iron [Mass/Vol] 52 ug/dL Normal 41-186 [facility] Comment on above: Order Comment: Speci men Type: BLOOD SPECIMENOrdering Facility: [facility] Address: [address] [place] [address] Performed By: #### 2 276-4, 49821-0, 08659-8, 3040-3 ####[facility]CL[facility] [id number] [place] [address] [place] Iron binding capacity [Mass/Vol] 348 ug/dL Normal 232-386 [facility] Comment on above: Order Comment: Speci men Type: BLOOD SPECIMENOrdering Facility: [facility] Address: [address] Performed By: #### 2 276-4, 70599-8, 76158-9, 3040-3 ####[facility]CL[facility] [id number] [place] [address] [place] Iron/TIBC [Molar ratio] 14.9 % Low 15.0-57.0 [facility] Comment on above: Order Comment: Speci men Type: BLOOD SPECIMENOrdering Facility: [facility] Address: [address] [place] [address] Performed By: #### 2 276-4, 11792-6, 91053-2, 3040-3 ####[facility]CL[facility] [id number] [place] [address] [place] Lipase SerPl-cCncon 11-05-19 23 Lipase [Catalytic activity/Vol] 35 U/L Normal 16-61 [facility] Comment on above: Order Comment: Speci men Type: BLOOD SPECIMENOrdering Facility: [facility] Address: [address] [place] [address] Performed By: #### 2 276-4, 37989-6, 87752-3, 3040-3 ####[facility] [id number] [place] [address] [place] PTH-Intact [facility]-ncon - Parathyrin.intact [Mass/Vol] 27 pg/mL Normal 15-65 [facility] Comment on above: Order Comment: Speci men Type: BLOOD SPECIMENOrdering Facility: [facility] Address: [address] Performed By: #### 1 798-8, 2731-8, 2284-8, 2132-9 ####[facility]CL[facility] [id number] [place] [address] [place] US ABD RIGHT UPPER QUADRANTo n 11-04-2022 US ABD RIGHT UPPER QUADRANT Normal [facility] VITAMIN B1 (THIAMINE), WHOLE BLOODon 11-04-2022 Thiamine (Bld) [Moles/Vol] 165.0 nmol/L Normal 84.3-213.3 [facility] Comment on above: Order Comment: Geraldo marrero Type: BLOOD SPECIMENOrdering Facility: [facility] Address: [address] [place] [address] Result Comment: This assay measures the concentration of thiamine diphosphate (TDP), the primary active form of vitamin B1. Approximately 90 percent of vitamin B1 present in whole blood is TDP. Thiamine and thiamine monophosphate, which comprise the remaining 10 percent, are not measured.This test was developed and its performance characteristics determined by [facility] [place] ([facility] It has not been cleared or approved by the FDA. -[facility] is regulated under CLIA as qualified to perform high-complexity testing. This test is used for clinical purposes. It should not be regarded as investigational or for research. Performed By: #### B 1WB ####[facility] [id number] [place] [address] [place] Vit A SerPl-mCncon 3 Retinol [Mass/Vol] 0.44 mg/L Normal 0.30-1.20 [facility] Comment on above: Order Comment: Geraldo marrero Type: BLOOD SPECIMENOrdering Facility: [facility] Address: [address] [place] [address] Result Comment: This test was developed and its performance characteristics determined by [facility] [place] ([facility]). It has not been cleared or approved by the FDA. [facility] is regulated under CLIA as qualified to perform high-complexity testing. This test is used for clinical purposes. It should not be regarded as investigational or for research. Performed By: #### 2 923-1 ####[facility] [id number] [place] [address] [place] Vit B12 SerPl-mCncon 023 Cobalamin (Vitamin B12) [Mass/Vol] 1018 pg/mL Normal 232-1245 [facility] Comment on above: Order Comment: Speci elida Type: BLOOD SPECIMENOrdering Facility: [facility] Address: [address] [place] [id number] Performed By: #### 1 798-8, 2731-8, 2284-8, 2132-9 ####[facility]CL[facility] [id number] [place] [address] [place] Zinc SerPl-mCncon 11-04-2022 Zinc [Mass/Vol] 51 ug/dL Low 60-120 [facility] Comment on above: Order Comment: Lyssamichael marrero Type: BLOOD SPECIMENOrdering Facility: [facility] Address: [address] [place] [address] Result Comment: This test was developed and its performance characteristics determined by [facility] [place] ([facility]). It has not been cleared or approved by the FDA. [facility] is regulated under CLIA as qualified to perform high-complexity testing. This test is used for clinical purposes. It should not be regarded as investigational or for research. Performed By: #### 5 763-8 ####[facility]CL[facility] [id number] [address] [place] CBCon 11-02-2022 ABSOLUTE BAS 0.0 10*3/uL Normal 0.0-0.2 [facility] Comment on above: Performed By: #### A CBC, LIPA2, CMPF #### Testing performed at [address] [address] ABSOLUTE EOS 0.0 10*3/uL Normal 0.0-0.7 [facility] Comment on above: Performed By: #### A CBC, LIPA2, CMPF #### Testing performed at [address] [address] ABSOLUTE NEUTROPHIL COUNT 3.6 10*3/uL Normal 1.4-6.5 [facility] Comment on above: Performed By: #### A CBC, LIPA2, CMPF #### Testing performed at [address] [address] Basophils/100 WBC (Bld) 0.3 % Normal 0.0-2.0 [facility] Comment on above: Performed By: #### A CBC, LIPA2, CMPF #### Testing performed at [address] [place] [address] DTYPE AUTO DIFF Normal [facility] Comment on above: Performed By: #### A CBC, LIPA2, CMPF #### Testing performed at [address] [address] Eosinophils/100 WBC (Bld) 0.1 % Normal 0.0-11.0 [facility] Comment on above: Performed By: #### A CBC, LIPA2, CMPF #### Testing performed at [address] [address] Lymphocytes (Bld) [#/Vol] 0.8 10*3/uL Low 1.2-3.4 [facility] Comment on above: Performed By: #### A CBC, LIPA2, CMPF #### Testing performed at [address] [address] Lymphocytes/100 WBC (Bld) 17.9 % Low 20.0-55.0 [facility] Comment on above: Performed By: #### A CBC, LIPA2, CMPF #### Testing performed at [address] [address] Monocytes (Bld) [#/Vol] 0.1 10*3/uL Normal 0.0-0.7 [facility] Comment on above: Performed By: #### A CBC, LIPA2, CMPF #### Testing performed at [address] [address] Monocytes/100 WBC (Bld) 2.3 % Normal 0.0-10.0 [facility] Comment on above: Performed By: #### A CBC, LIPA2, CMPF #### Testing performed at [address] [address] Neutrophils/100 WBC (Bld) 79.4 % High 37.0-75.0 [facility] Comment on above: Performed By: #### A CBC, LIPA2, CMPF #### Testing performed at [address] [address] Erythrocyte distribution width (RBC) [Ratio] 14.8 % High 11.5-14.5 [facility] Comment on above: Performed By: #### A CBC, LIPA2, CMPF #### Testing performed at [address] [address] Hematocrit (Bld) [Volume fraction] 38.8 % Normal 36.0-48.0 [facility] Comment on above: Performed By: #### A CBC, LIPA2, CMPF #### Testing performed at [address] [address] Hemoglobin (Bld) [Mass/Vol] 13.0 g/dL Normal 12.0-16.0 [facility] Comment on above: Performed By: #### A CBC, LIPA2, CMPF #### Testing performed at [address] [address] MCH (RBC) [Entitic mass] 30.6 pg Normal 26.0-35.0 [facility] Comment on above: Performed By: #### A CBC, LIPA2, CMPF #### Testing performed at [address] [address] MCHC (RBC) [Mass/Vol] 33.5 g/dL Normal 27.0-37.0 [facility] Comment on above: Performed By: #### A CBC, LIPA2, CMPF #### Testing performed at [address] [address] MCV (RBC) [Entitic vol] 91.2 fL Normal 80.0-100.0 [facility] Comment on above: Performed By: #### A CBC, LIPA2, CMPF #### Testing performed at [address] [address] Platelet mean volume (Bld) [Entitic vol] 9.9 fL Normal 7.4-11.0 [facility] Comment on above: Performed By: #### A CBC, LIPA2, CMPF #### Testing performed at [address] [address] Platelets (Bld) [#/Vol] 234 10*3/uL Normal 130-400 [facility] Comment on above: Performed By: #### A CBC, LIPA2, CMPF #### Testing performed at [address] [address] RBC (Bld) [#/Vol] 4.25 10*6/uL Normal 4.0-5.4 [facility] Comment on above: Performed By: #### A CBC, LIPA2, CMPF #### Testing performed at [address] [address] WBC (Bld) [#/Vol] 4.5 10*3/uL Normal 3.6-11.0 [facility] Comment on above: Performed By: #### A CBC, LIPA2, CMPF #### Testing performed at [address] [address] CBC, EDIF, PLATELETon 2022 ABSOLUTE BASOPHIL COUNT 0.0 10*3/uL 0.0 - 0.2 10*3/uL [facility] Basophils/100 WBC (Bld) 0.3 % 0.0 - 2.0 % [facility] Differential cell count method Nom (Bld) AUTO DIFF % [facility] Eosinophils (Bld) [#/Vol] 0.0 10*3/uL 0.0 - 0.7 10*3/uL [facility] Eosinophils/100 WBC (Bld) 0.1 % 0.0 - 11.0 % [facility] Erythrocyte distribution width (RBC) [Ratio] 14.8 % High 11.5 - 14.5 % [facility] Hematocrit (Bld) [Volume fraction] 38.8 % 36.0 - 48.0 % [facility] Hemoglobin (Bld) [Mass/Vol] 13.0 g/dL [facility] Interpretation and review of laboratory results Abnormal [facility] Lymphocytes (Bld) [#/Vol] 0.8 10*3/uL Low 1.2 - 3.4 10*3/uL [facility] Lymphocytes/100 WBC (Bld) 17.9 % Low 20.0 - 55.0 % [facility] MCH (RBC) [Entitic mass] 30.6 pg 26.0 - 35.0 PG [facility] MCHC (RBC) [Mass/Vol] 33.5 g/dL [facility] MCV (RBC) [Entitic vol] 91.2 fL [facility] Monocytes (Bld) [#/Vol] 0.1 10*3/uL 0.0 - 0.7 10*3/uL [facility] Monocytes/100 WBC (Bld) 2.3 % 0.0 - 10.0 % [facility] Neutrophils (Bld) [#/Vol] 3.6 10*3/uL 1.4 - 6.5 10*3/uL [facility] Neutrophils/100 WBC (Bld) 79.4 % High 37.0 - 75.0 % [facility] Platelet mean volume (Bld) [Entitic vol] 9.9 fL [facility] Platelets (Bld) [#/Vol] 234 10*3/uL 130 - 400 10*3/uL [facility] RBC (Bld) [#/Vol] 4.25 10*6/uL 4.0 - 5.4 10*6/u L [facility] WBC (Bld) [#/Vol] 4.5 10*3/uL 3.6 - 11.0 10*3/u L [facility] CMP FASTINGon 11-02-2022 A:G RATIO 1.5 RATIO Normal [facility] Comment on above: Performed By: #### A CBC, LIPA2, CMPF #### Testing performed at [address] [address] ALBUMIN 4.4 G/dl Normal 3.5-5.0 [facility] Comment on above: Performed By: #### A CBC, LIPA2, CMPF #### Testing performed at [address] [address] ALP [Catalytic activity/Vol] 87 U/L Normal 38-126 [facility] Comment on above: Performed By: #### A CBC, LIPA2, CMPF #### Testing performed at [address] [address] ALT [Catalytic activity/Vol] 22 U/L Normal <35 [facility] Comment on above: Performed By: #### A CBC, LIPA2, CMPF #### Testing performed at [address] [address] AST [Catalytic activity/Vol] 34 U/L Normal 14-36 [facility] Comment on above: Performed By: #### A CBC, LIPA2, CMPF #### Testing performed at [address] [address] Bilirubin [Mass/Vol] 0.4 mg/dL Normal 0.2-1.3 [facility] Comment on above: Performed By: #### A CBC, LIPA2, CMPF #### Testing performed at [address] [address] Calcium [Mass/Vol] 9.0 mg/dL Normal 8.4-10.2 [facility] Comment on above: Performed By: #### A CBC, LIPA2, CMPF #### Testing performed at [address] [address] Chloride [Moles/Vol] 106 mmol/L Normal 98-107 [facility] Comment on above: Result Comment: Yessy plascencia note: Triglyceride levels of 600mg/dL or higher may positively bias chloride results by approximately 2.1 mmol Performed By: #### A CBC, LIPA2, CMPF #### Testing performed at [address] [address] CO2 [Moles/Vol] 22 mmol/L Normal 22-30 [facility] Comment on above: Performed By: #### A CBC, LIPA2, CMPF #### Testing performed at [address] [address] Creatinine [Mass/Vol] 0.80 mg/dL Normal 0.70-1.20 [facility] Comment on above: Performed By: #### A CBC, LIPA2, CMPF #### Testing performed at [address] [address] EST. GFR, 106 ml/min/1.73sq.m Normal [facility] Comment on above: Performed By: #### A CBC, LIPA2, CMPF #### Testing performed at [address] [address] EST. GFR,Non 88 ml/min/1.73sq.m Normal [facility] Comment on above: Performed By: #### A CBC, LIPA2, CMPF #### Testing performed at [address] [address] GFR Information Average GFR for 30-39 years old = 107. Normal [facility] Comment on above: Result Comment: Facer Operator alejandra Kidney disease, GFR = <60. Kidney failure, GFR = <15. The GFR estimate is not adjusted for extreme body surface area or acute process, nor has it been validated for women or ethnic groups other than and . Performed By: #### A CBC, LIPA2, CMPF #### Testing performed at [place] [id number] Glucose [Mass/Vol] 119 mg/dL High 70-100 [facility] Comment on above: Result Comment: NORMAL <100 mg/dL PREDIABETES 101-126 mg/dL DIABETES 126 mg/dL or higher Performed By: #### A CBC, LIPA2, CMPF #### Testing performed at [address] [address] Potassium [Moles/Vol] 4.2 mmol/L Normal 3.5-5.1 [facility] Comment on above: Performed By: #### A CBC, LIPA2, CMPF #### Testing performed at [address] [address] Protein [Mass/Vol] 7.3 g/dL Normal 6.3-8.2 [facility] Comment on above: Performed By: #### A CBC, LIPA2, CMPF #### Testing performed at [address] [address] Sodium [Moles/Vol] 138 mmol/L Normal 137-145 [facility] Comment on above: Performed By: #### A CBC, LIPA2, CMPF #### Testing performed at [address] [address] Urea nitrogen [Mass/Vol] 8 mg/dL Normal 7-20 [facility] Comment on above: Performed By: #### A CBC, LIPA2, CMPF #### Testing performed at [address] [address] COMPREHENSIVE METABOLIC PANE Nestor 11-02-2022 Albumin [Mass/Vol] 4.4 G/dl 3.5 - 5.0 G/dl [facility] Albumin/Globulin [Mass ratio] 1.5 {ratio} RATIO [facility] ALP [Catalytic activity/Vol] 87 U/L [facility] ALT [Catalytic activity/Vol] 22 U/L NINF [facility] AST [Catalytic activity/Vol] 34 U/L [facility] Bilirubin [Mass/Vol] 0.4 mg/dL [facility] Calcium [Mass/Vol] 9.0 mg/dL [facility] Chloride [Moles/Vol] 106 mmol/L [facility] Comment on above: Please note: Triglyc eride levels of 600mg/dL or higher may positively bias chloride results by approximately 2.1 mmol CO2 [Moles/Vol] 22 mmol/L [facility] Creatinine [Mass/Vol] 0.80 mg/dL [facility] GFR COMMENT Average GFR for 30-39 years old = 107. [facility] Comment on above: Chronic Kidney disea se, GFR = <60. Kidney failure, GFR = <15. The GFR estimate is not adjusted for extreme body surface area or acute process, nor has it been validated for women or ethnic groups other than and . GFR/1.73 sq M.predicted among blacks MDRD (S/P/Bld) [Vol rate/Area] 106 mL/min/{1.73_m2} ml/min/1.73sq.m [facility] GFR/1.73 sq M.predicted among non-blacks MDRD (S/P/Bld) [Vol rate/Area] 88 mL/min/{1.73_m2} ml/min/1.73sq.m [facility] Glucose post fast [Mass/Vol] 119 mg/dL High [facility] Comment on above: NORMAL <100 mg/dL PREDIABETES 101-126 mg/dL DIABETES 126 mg/dL or higher Interpretation and review of laboratory results Abnormal [facility] Potassium [Moles/Vol] 4.2 mmol/L [facility] Protein [Mass/Vol] 7.3 g/dL [facility] Sodium [Moles/Vol] 138 mmol/L [facility] Urea nitrogen [Mass/Vol] 8 mg/dL [facility] HCG ( test) Ql (U)o n 11-02-2022 [facility] HCG QUALITATIVE, URINEon HCG ( test) Ql (U) Negative NEGATIVE [facility] LACTATE, BLOODon 11-02-2022 Lactate [Moles/Vol] 1.3 mmol/L 0.7 - 2.0 mmol/L [facility] LACTATE,BLOODon 11-02-2022 Lactate [Moles/Vol] 1.3 mmol/L Normal 0.7-2.0 [facility] Comment on above: Performed By: #### L ACTAC #### Testing performed at [address] [address] LIPASEon 11-02-2022 Lipase [Catalytic activity/Vol] 105 U/L 23 - 300 U/L [facility] LIPASE,SERUMon 11-02-2022 LIPASE,SERUM 105 U/L Normal 23-300 [facility] Comment on above: Performed By: #### A CBC, LIPA2, CMPF #### Testing performed at [address] [address] No Panel Informationon 11-02 [facility] URINALYSIS, MACROon 11-03-19 23 Bilirubin Ql (U) Negative NEGATIVE [facility] Clarity (U) CLEAR CLEAR [facility] Color (U) YELLOW YELLOW [facility] Glucose Test strip (U) [Mass/Vol] Negative NEGATIVE mg/dl [facility] Hemoglobin Ql (U) Negative NEGATIVE [facility] Interpretation and review of laboratory results Abnormal [facility] Ketones (U) [Mass/Vol] Negative NEGATIVE mg/dl [facility] Leukocyte esterase Test strip Ql (U) Negative NEGATIVE [facility] Nitrite Ql (U) Negative NEGATIVE [facility] pH (U) 8.5 [pH] High 5.0 - 7.0 [facility] Protein Ql (U) Negative NEGATIVE mg/dl [facility] Specific gravity (U) [Rel density] 1.020 1.010 - 1.025 [facility] Urobilinogen (U) [Mass/Vol] 1.0 mg/dL [facility] URINE HCG QUALon 11-02-2022 Beta HCG ( test) Ql (U) Negative Normal NEGATIVE [facility] Comment on above: Performed By: #### U HCGT, UMAC #### Testing performed at [address] [address] URINE MACROSCOPICon 11-03-19 23 Bilirubin Ql (U) Negative Normal NEGATIVE [facility] Comment on above: Performed By: #### U HCGT, UMAC #### Testing performed at [address] [address] Clarity (U) CLEAR Normal CLEAR [facility] Comment on above: Performed By: #### U HCGT, UMAC #### Testing performed at [address] [address] Color (U) YELLOW Normal YELLOW [facility] Comment on above: Performed By: #### U HCGT, UMAC #### Testing performed at [address] [address] Glucose Ql (U) Negative Normal NEGATIVE [facility] Comment on above: Performed By: #### U HCGT, UMAC #### Testing performed at [address] [address] pH (U) 8.5 [pH] High 5.0-7.0 [facility] Comment on above: Performed By: #### U HCGT, UMAC #### Testing performed at [address] [place] [address] URINE HEMOGLOBIN Negative Normal NEGATIVE [facility] Comment on above: Performed By: #### U HCGT, UMAC #### Testing performed at [address] [place] [address] URINE KETONE Negative Normal NEGATIVE [facility] Comment on above: Performed By: #### U HCGT, UMAC #### Testing performed at [address] [address] URINE LEUKOTEST Negative Normal NEGATIVE [facility] Comment on above: Performed By: #### U HCGT, UMAC #### Testing performed at [address] [address] URINE NITRATES Negative Normal NEGATIVE [facility] Comment on above: Performed By: #### U HCGT, UMAC #### Testing performed at [address] [place] [address] URINE SPEC GRAVITY 1.020 Normal 1.010-1.025 [facility] Comment on above: Performed By: #### U HCGT, UMAC #### Testing performed at [address] [address] URINE TOTAL PROTEIN Negative Normal NEGATIVE [facility] Comment on above: Performed By: #### U HCGT, UMAC #### Testing performed at [address] [place] [address] Urobilinogen Qn (U) 1.0 {Munir'U}/dL Normal 0.2-1.0 [facility] Comment on above: Performed By: #### U HCGT, UMAC #### Testing performed at [address] [address] CBC with Auto Differentialon 10-31-2022 Basophils (Bld) [#/Vol] [facility] Basophils/100 WBC (Bld) 0 % 0 - 2 % [facility] Eosinophils (Bld) [#/Vol] 0.03 10*3/uL [facility] Eosinophils/100 WBC (Bld) 0 % Low 1 - 4 % [facility] Erythrocyte distribution width (RBC) [Ratio] 12.8 % 11.8 - 14.4 % [facility] Hematocrit (Bld) [Volume fraction] 38.9 % 36.3 - 47.1 % [facility] Hemoglobin (Bld) [Mass/Vol] 13.3 g/dL 11.9 - 15.1 g/dL [facility] Immature granulocytes (Bld) [#/Vol] [facility] Immature granulocytes/100 WBC (Bld) 0 % 0 [facility] Interpretation and review of laboratory results Abnormal [facility] Lymphocytes/100 WBC (Bld) 19 % Low 24 - 43 % [facility] Lymphocytes/100 WBC (Bld) 1.46 % [facility] MCH (RBC) [Entitic mass] 30.6 pg 25.2 - 33.5 pg [facility] MCHC (RBC) [Mass/Vol] 34.2 g/dL 28.4 - 34.8 g/dL [facility] MCV (RBC) [Entitic vol] 89.4 fL 82.6 - 102.9 fL [facility] Monocytes/100 WBC (Bld) 5 % 3 - 12 % [facility] Monocytes/100 WBC (Bld) 0.41 % [facility] Neutrophils/100 WBC (Bld) 76 % High 36 - 65 % [facility] Nucleated RBC/100 WBC (Bld) [Ratio] 0.0 % 0.0 per 100 WBC [facility] Platelet mean volume (Bld) [Entitic vol] 12.0 fL 8.1 - 13.5 fL [facility] Platelets (Bld) [#/Vol] 246 10*3/uL [facility] RBC (Bld) [#/Vol] 4.35 10*6/uL 3.95 - 5.11 m/uL [facility] Segmented neutrophils/100 WBC (Bld) 5.66 % [facility] WBC other (Bld) [#/Vol] 7.6 [facility] CBC with Diffon 10-31-2022 Abs. Basophil <0.03 Normal 0.00-0.20 [facility] Comment on above: Performed By: #### L JUDITH BROWN, CDP #### [address] [place], [facility]83 Spaghetti Machine Operator: Baldomero Espinoza MD Abs.Imm.Granulocyte <0.03 Normal 0.00-0.30 [facility] Comment on above: Performed By: #### L JUDITH BROWN, CDP #### [facility] [address] [place] [address] [place] [address] Spaghetti Machine Operator: Baldomero Espinoza MD Abs.Neutrophil (Seg) 5.66 k/uL Normal 1.50-8.10 [facility] Comment on above: Performed By: #### L JUDITH BROWN, CDP #### [address] [place], [facility]83 Spaghetti Machine Operator: Baldomero Espinoza MD Basophils/100 WBC (Bld) 0 % Normal 0-2 [facility] Comment on above: Performed By: #### L IP, CP, CDP #### [facility] [address] [place], [facility]83 Spaghetti Machine Operator: Baldomero Espinoza MD Eosinophils (Bld) [#/Vol] 0.03 10*3/uL Normal 0.00-0.44 [facility] Comment on above: Performed By: #### L IP, CP, CDP #### [address] [place], [place] [address] Spaghetti Machine Operator: Baldomero Espinoza MD Eosinophils/100 WBC (Bld) 0 % Low 1-4 [facility] Comment on above: Performed By: #### L IP, CP, CDP #### [address] [place], [facility]83 Spaghetti Machine Operator: Baldomero Espinoza MD Erythrocyte distribution width (RBC) [Ratio] 12.8 % Normal 11.8-14.4 [facility] Comment on above: Performed By: #### L IP, CP, CDP #### [address] [place], [facility]83 Spaghetti Machine Operator: Baldomero Espinoza MD Hematocrit (Bld) [Volume fraction] 38.9 % Normal 36.3-47.1 [facility] Comment on above: Performed By: #### L IP, CP, CDP #### [address] [place], [facility]83 Spaghetti Machine Operator: Baldomero Espinoza MD Hemoglobin (Bld) [Mass/Vol] 13.3 g/dL Normal 11.9-15.1 [facility] Comment on above: Performed By: #### L IP, CP, CDP #### [address] [place], [facility]83 Spaghetti Machine Operator: Baldomero Espinoza MD Immature granulocytes/100 WBC (Bld) 0 % Normal 0 [facility] Comment on above: Performed By: #### L JUDITH BROWN, CDP #### [facility] [address] [place], [place] [id number] Spaghetti Machine Operator: Baldomero Espinoza MD Lymphocytes (Bld) [#/Vol] 1.46 10*3/uL Normal 1.10-3.70 [facility] Comment on above: Performed By: #### L IP, CP, CDP #### [facility] [address] [place], [place] [id number] Spaghetti Machine Operator: Baldomero Espinoza MD Lymphocytes/100 WBC (Bld) 19 % Low 24-43 [facility] Comment on above: Performed By: #### L KEVIN CP, CDP #### [address] [place], [facility]83 Spaghetti Machine Operator: Baldomero Espinoza MD MCH (RBC) [Entitic mass] 30.6 pg Normal 25.2-33.5 [facility] Comment on above: Performed By: #### L JUDITH BROWN, CDP #### [address] [place], [facility]83 Spaghetti Machine Operator: Baldomero Espinoza MD MCHC (RBC) [Mass/Vol] 34.2 g/dL Normal 28.4-34.8 [facility] Comment on above: Performed By: #### L JUDITH BROWN, CDP #### [address] [place], [facility]83 Spaghetti Machine Operator: Baldomero Espinoza MD MCV (RBC) [Entitic vol] 89.4 fL Normal 82.6-102.9 [facility] Comment on above: Performed By: #### L IP CP, CDP #### [facility] [address] [place], [place] [id number] Spaghetti Machine Operator: Baldomero Espinoza MD Monocytes (Bld) [#/Vol] 0.41 10*3/uL Normal 0.10-1.20 [facility] Comment on above: Performed By: #### L IP, CP, CDP #### [facility] [address] [place], [place] [id number] Spaghetti Machine Operator: Baldomero Espinoza MD Monocytes/100 WBC (Bld) 5 % Normal 3-12 [facility] Comment on above: Performed By: #### L IP, CP, CDP #### [facility] [address] [place] [address] Spaghetti Machine Operator: Baldomero Espinoza MD Neutrophil (Seg) 76 % High 36-65 [facility] Comment on above: Performed By: #### L IP, CP, CDP #### [address] [place], [place] [id number] Spaghetti Machine Operator: Baldomero Espinoza MD NRBC Automated 0.0 per 100 WBC Normal 0.0 [facility] Comment on above: Performed By: #### L KEVIN CP, CDP #### [address] [place] [address] Spaghetti Machine Operator: Baldomero Espinoza MD Platelet mean volume (Bld) [Entitic vol] 12.0 fL Normal 8.1-13.5 [facility] Comment on above: Performed By: #### L IP CP, CDP #### [address] [place] [address] Spaghetti Machine Operator: Baldomero Espinoza MD Platelets (Bld) [#/Vol] 246 10*3/uL Normal 138-453 [facility] Comment on above: Performed By: #### L IP, CP, CDP #### [address] [place], [place] [id number] Spaghetti Machine Operator: Baldoemro Espinoza MD RBC (Bld) [#/Vol] 4.35 10*6/uL Normal 3.95-5.11 [facility] Comment on above: Performed By: #### L JUDITH BROWN, CDP #### [facility] [address] [place] [address] Spaghetti Machine Operator: Baldomero Espinoza MD WBC (Bld) [#/Vol] 7.6 10*3/uL Normal 3.5-11.3 [facility] Comment on above: Performed By: #### L JUDITH BROWN, CDP #### [facility] [address] [place] [address] Spaghetti Machine Operator: Baldomero Espinoza MD [facility] Albumin [Mass/Vol] 4.5 g/dL 3.5 - 5.2 g/dL [facility] Albumin/Globulin [Mass ratio] 1.7 {ratio} 1.0 - 2.5 [facility] ALP [Catalytic activity/Vol] 76 U/L 35 - 104 U/L [facility] ALT [Catalytic activity/Vol] 14 U/L 5 - 33 U/L [facility] Anion gap [Moles/Vol] 12 mmol/L 9 - 17 mmol/L [facility] AST [Catalytic activity/Vol] 24 U/L NINF - 32 U/L [facility] Bilirubin [Mass/Vol] 0.3 mg/dL 0.3 - 1.2 mg/dL [facility] Calcium [Mass/Vol] 9.1 mg/dL 8.6 - 10.4 mg/dL [facility] Chloride [Moles/Vol] 106 mmol/L 98 - 107 mmol/L [facility] CO2 [Moles/Vol] 18 mmol/L Low 20 - 31 mmol/L [facility] Creatinine [Mass/Vol] 0.7 mg/dL 0.5 - 0.9 mg/dL [facility] GFR/1.73 sq M.predicted MDRD (S/P/Bld) [Vol rate/Area] - PINF [facility] Comment on above: These results are [...] [Mass/Vol] 87 mg/dL 70 - 99 mg/dL [facility] Interpretation and review of laboratory results Abnormal [facility] Potassium [Moles/Vol] 3.8 mmol/L 3.7 - 5.3 mmol/L [facility] Protein [Mass/Vol] 7.2 g/dL 6.4 - 8.3 g/dL [facility] Sodium [Moles/Vol] 136 mmol/L 135 - 144 mmol/L [facility] Urea nitrogen [Mass/Vol] 7 mg/dL 6 - 20 mg/dL [facility] Urea nitrogen/Creatinine [Mass ratio] 10 mg/mg 9 - 20 [facility] Comp Metabolic Profon 2022 Albumin [Mass/Vol] 4.5 g/dL Normal 3.5-5.2 [facility] Comment on above: Performed By: #### L JUDITH BROWN, CDP #### [facility] [address] [place] [address] [place] [address] Spaghetti Machine Operator: Baldomero Espinoza MD Albumin/Glob Ratio 1.7 Normal 1.0-2.5 [facility] Comment on above: Performed By: #### L KEVIN CP, CDP #### [facility] [address] [place] [address] Spaghetti Machine Operator: Baldomero Espinoza MD Alkaline Phos 76 U/L Normal 35-104 [facility] Comment on above: Performed By: #### L KEVIN CP, CDP #### [facility] [address] [place] [address] Spaghetti Machine Operator: Baldomero Espinoza MD ALT [Catalytic activity/Vol] 14 U/L Normal 5-33 [facility] Comment on above: Performed By: #### L KEVIN CP, CDP #### [facility] [address] [place] [address] [place], [place] [address] Spaghetti Machine Operator: Baldomero Espinoza MD Anion gap [Moles/Vol] 12 mmol/L Normal 9-17 [facility] Comment on above: Performed By: #### L IP, CP, CDP #### [facility] [address] [place], [place] [address] Spaghetti Machine Operator: Baldomero Espinoza MD AST [Catalytic activity/Vol] 24 U/L Normal <32 [facility] Comment on above: Performed By: #### L IP, CP, CDP #### [facility] [address] [place], [place] [phone] Spaghetti Machine Operator: Baldomero Espinoza MD Bilirubin [Mass/Vol] 0.3 mg/dL Normal 0.3-1.2 [facility] Comment on above: Performed By: #### L IP, CP, CDP #### [address] [place], [place] [id number] Spaghetti Machine Operator: Baldomero Espinoza MD BUN/CRE Ratio 10 Normal 9-20 [facility] Comment on above: Performed By: #### L IP, CP, CDP #### [address] [place], [place] [id number] Spaghetti Machine Operator: Baldomero Espinoza MD Calcium [Mass/Vol] 9.1 mg/dL Normal 8.6-10.4 [facility] Comment on above: Performed By: #### L IP, CP, CDP #### [facility] [address] [place] [address] [place], [place] [phone] Spaghetti Machine Operator: Baldomero Espinoza MD Chloride [Moles/Vol] 106 mmol/L Normal 98-107 [facility] Comment on above: Performed By: #### L IP, CP, CDP #### [facility] [address] [place] [address] [place], [place] [phone] Spaghetti Machine Operator: Baldomero Espinoza MD CO2 [Moles/Vol] 18 mmol/L Low 20-31 [facility] Comment on above: Performed By: #### L IP, CP, CDP #### [facility] [address] [place] [address] Spaghetti Machine Operator: Baldomero Espinoza MD Creatinine [Mass/Vol] 0.7 mg/dL Normal 0.5-0.9 [facility] Comment on above: Performed By: #### L IP, CP, CDP #### [facility] [address] [place] [address] Spaghetti Machine Operator: Baldomero Espinoza MD GFR/1.73 sq M.predicted [...] #### L IP, CP, CDP #### [facility] [address] [place] [address] Spaghetti Machine Operator: Baldomero Espinoza MD Glucose [Mass/Vol] 87 mg/dL Normal 70-99 [facility] Comment on above: Performed By: #### L IP, CP, CDP #### [facility] [address] [place] [address] Spaghetti Machine Operator: Baldomero Espinoza MD Potassium [Moles/Vol] 3.8 mmol/L Normal 3.7-5.3 [facility] Comment on above: Performed By: #### L IP, CP, CDP #### [facility] [address] [place] [address] Spaghetti Machine Operator: Baldomero Espinoza MD Protein [Mass/Vol] 7.2 g/dL Normal 6.4-8.3 [facility] Comment on above: Performed By: #### L JUDITH BROWN, CDP #### [facility] [address] [place] [address] Spaghetti Machine Operator: Baldomero Espinoza MD Sodium [Moles/Vol] 136 mmol/L Normal 135-144 [facility] Comment on above: Performed By: #### L JUDITH BROWN, CDP #### [facility] [address] [place] [address] Spaghetti Machine Operator: Baldomero Espinoza MD Urea nitrogen [Mass/Vol] 7 mg/dL Normal 6-20 [facility] Comment on above: Performed By: #### L JUDITH BROWN, CDP #### [facility] [address] [place] [address] Spaghetti Machine Operator: Baldomero Espinoza MD Lipaseon 10-31-2022 Lipase [Catalytic activity/Vol] 43 U/L Normal 13-60 [facility] Comment on above: Performed By: #### L JUDITH BROWN, CDP #### [facility] [address] [place] [address] Spaghetti Machine Operator: Baldomero Espinoza MD Lipase [Catalytic activity/Vol] 43 U/L 13 - 60 U/L [facility] Microscopic Urinalysison Bacteria LM Ql (Urine sed) 1+ Abnormal None [facility] Epithelial cells LM.HPF (Urine sed) [#/Area] 2 TO 5 [facility] Interpretation and review of laboratory results Abnormal [facility] RBC LM.HPF (Urine sed) [#/Area] None [facility] WBC LM.HPF (Urine sed) [#/Area] None [facility] No Panel Informationon 10-31 [facility] UA w/Reflex Cultureon 2022 Bilirubin, SemiQt,Ur Negative Normal NEG [facility] Comment on above: Performed By: #### U MICAO, UAX ####[address] , [place] [id number] Lab Director: Baldomero Espinoza MD Blood, Urine Negative Normal NEG [facility] Comment on above: Performed By: #### U MICAO, UAX ####[address] , [place] [id number] Lab Director: Baldomero Espinoza MD Clarity (U) Clear Normal CLEAR [facility] Comment on above: Performed By: #### U MICAO, UAX ####[address] , [place] [id number] Lab Director: Baldomero Espinoza MD Color (U) Yellow Normal YEL [facility] Comment on above: Performed By: #### U MICAO, UAX ####[address] [place] [address] Lab Director: Baldomero Espinoza MD Glucose Ql (U) Negative Normal NEG [facility] Comment on above: Performed By: #### U MICAO, UAX ####[address] [place] [address] Lab Director: Baldomero Espinoza MD Ketones Ql (U) Negative Normal NEG [facility] Comment on above: Performed By: #### U MICAO, UAX ####[address] [place] [address] Lab Director: Baldomero Espinoza MD Leukocyte esterase Test strip Ql (U) Negative Normal NEG [facility] Comment on above: Performed By: #### U MICAO, UAX ####[address] , [place] [id number] Lab Director: Baldomero Espinoza MD Nitrite,Ur Negative Normal NEG [facility] Comment on above: Performed By: #### U MICAO, UAX ####[address] , [place] [address] [facility] Director: Baldomero Espinoza MD PH,Ur 7.0 Normal 5.0-9.0 [facility] Comment on above: Performed By: #### U MICAO, UAX ####[address] [place] [address] lab Director: Baldomero Espinoza MD Protein Ql (U) Negative Normal NEG [facility] Comment on above: Performed By: #### U MICAO, UAX ####[address] , [place] [address] lab Director: Baldomero Espinoza MD Spec. [place],Ur 1.015 Normal 1.010-1.020 [facility] Comment on above: Performed By: #### U MICAO, UAX ####[address] , [place] 6[address] [facility] Director: Baldomero Espinoza MD Urobilinogen,Ur Normal Normal 0.0-1.0 [facility] Comment on above: Performed By: #### U LAURENO, UAX ####[address] , [place] [address] lab Director: Baldomero Espinoza MD Urinalysis with Reflex to Cu ltureon 10-31-2022 Bilirubin Ql (U) Negative NEGATIVE [facility] Clarity (U) Clear Clear [facility] Color (U) Yellow Yellow [facility] Glucose Test strip (U) [Mass/Vol] Negative NEGATIVE mg/dL [facility] Hemoglobin Auto test strip Ql (U) Negative NEGATIVE [facility] Ketones (U) [Mass/Vol] Negative NEGATIVE mg/dL [facility] Leukocyte esterase Test strip Ql (U) Negative NEGATIVE [facility] Nitrite Ql (U) Negative NEGATIVE [facility] pH (U) 7.0 [pH] 5.0 - 9.0 [facility] Protein (U) [Mass/Vol] Negative NEGATIVE mg/dL [facility] Specific gravity (U) [Rel density] 1.015 1.010 - 1.020 [facility] Urobilinogen Qn (U) Normal 0.0 - 1.0 EU/dL [facility] Urinalysis,Microon 3 Bacteria 1+ Abnormal NONE [facility] Comment on above: Performed By: #### U MICAO, UAX ####[facility] [place] , [place] [address] lab Director: Baldomero Espinoza MD Epithelial cells LM Ql (Urine sed) 2 TO 5 Normal 0-25 [facility] Comment on above: Performed By: #### U MICAO, UAX ####[facility] [place] , [place] 30[address] lab Director: Baldomero Espinoza MD Urine RBC's None Normal 0-2 [facility] Comment on above: Performed By: #### U MICAO, UAX ####[address] , [place] 4[address] lab Director: Baldomero Espinoza MD Urine WBC's None Normal 0-5 [facility] Comment on above: Performed By: #### U MICAO, UAX ####[address] , [place] 0[address] lab Director: Baldomero Espinoza MD XR LUMBAR [...] 07/27/2021. 3. Prior cholecystectomy. Moderate stool burden. [facility] EXAMINATION: 5 XRAY VIEWS OF [...] sacral arcuate lines appear intact. Pelvic phleboliths. [facility] Luis E Regalado MD - [...] 07/27/2021. 3. Prior cholecystectomy. Moderate stool burden. [facility] Radiology Study observation (narrative) [facility] XR LUMBAR SPINE (MIN 4 VIEWS )Ordered By: Luis E Regalado on 10-31-2022 [facility] Work Phone: CBC panel Auto (Bld)on 10-28 Erythrocyte distribution width (RBC) [Ratio] 13.2 % Normal 11.5-15.0 [facility] Comment on above: Order Comment: Speci men Type: BLOOD SPECIMENOrdering Facility: [facility] Address: [address] [place] [address] Performed By: #### 5 8410-2 ####[facility] LABORATORYCLIA [id number] [place] [address] [place] Hematocrit (Bld) [Volume fraction] 33.4 % Low 36.0-46.0 [facility] Comment on above: Order Comment: Speci men Type: BLOOD SPECIMENOrdering Facility: [facility] Address: [address] [place] [address] Performed By: #### 5 8410-2 ####[facility] LABORATORYCLIA [id number] [place] [address] [place] Hemoglobin (Bld) [Mass/Vol] 10.9 g/dL Low 11.5-15.5 [facility] Comment on above: Order Comment: Speci men Type: BLOOD SPECIMENOrdering Facility: [facility] Address: [address] [place] [address] Performed By: #### 5 8410-2 ####[facility] LABORATORYCLIA [id number] [place] [address] [place] MCH (RBC) [Entitic mass] 30.4 pg Normal 26.0-34.0 [facility] Comment on above: Order Comment: Speci men Type: BLOOD SPECIMENOrdering Facility: [facility] Address: [address] [address] Performed By: #### 5 8410-2 ####[facility] [id number] [address] [place] MCHC (RBC) [Mass/Vol] 32.6 g/dL Normal 30.5-36.0 [facility] Comment on above: Order Comment: Speci men Type: BLOOD SPECIMENOrdering Facility: [facility] Address: [address] [address] Performed By: #### 5 8410-2 ####[facility] [id number] [place] [address] [place] MCV (RBC) [Entitic vol] 93.3 fL Normal 80.0-100.0 [facility] Comment on above: Order Comment: Speci men Type: BLOOD SPECIMENOrdering Facility: [facility] Address: [address] [address] Performed By: #### 5 8410-2 ####[facility] [id number] [place] [address] [place] Nucleated RBC (Bld) [#/Vol] 10*3/uL Normal <0.01 [facility] Comment on above: Order Comment: Speci men Type: BLOOD SPECIMENOrdering Facility: [facility] Address: [address] [address] Performed By: #### 5 8410-2 ####[facility]IA [id number] [address] [place] Platelet mean volume (Bld) [Entitic vol] 11.7 fL Normal 9.0-12.7 [facility] Comment on above: Order Comment: Speci men Type: BLOOD SPECIMENOrdering Facility: [facility] Address: [address] [address] Performed By: #### 5 8410-2 ####[facility] LABORATORYIA [id number] [place] [address] [facility] [place] Platelets (Bld) [#/Vol] 174 10*3/uL Normal 150-400 [facility] Comment on above: Order Comment: Speci men Type: BLOOD SPECIMENOrdering Facility: [facility] Address: [address] [place] [address] Performed By: #### 5 8410-2 ####[facility] LABORATORYCLIA [id number] [place] [address] [place] RBC (Bld) [#/Vol] 3.58 10*6/uL Low 3.90-5.20 [facility] Comment on above: Order Comment: Speci men Type: BLOOD SPECIMENOrdering Facility: [facility] Address: [address] [place] [address] Performed By: #### 5 8410-2 ####[facility]ITALCLIA [id number] [place] [id number] [facility] WBC (Bld) [#/Vol] 4.62 10*3/uL Normal 3.70-11.00 [facility] Comment on above: Order Comment: Speci men Type: BLOOD SPECIMENOrdering Facility: [facility] Address: [address] [place] [address] Performed By: #### 5 8410-2 ####[facility]ITALIA [id number] [place] [address] [place] CNDSon 10-28-2022 CNDS Normal [facility] Comprehensive metabolic 2000 panelon 10-28-2022 Albumin [Mass/Vol] 3.2 g/dL Low 3.9-4.9 [facility] Comment on above: Order Comment: Speci men Type: BLOOD SPECIMENOrdering Facility: [facility] Address: [address] [place] [address] Performed By: #### 2 4323-8, 61993-5, 2777-1 ####[facility] LABORATORYCLIA [id number] [place] [address] [place] ALP [Catalytic activity/Vol] 54 U/L Normal 34-123 [facility] Comment on above: Order Comment: Speci men Type: BLOOD SPECIMENOrdering Facility: [facility] Address: [address] Performed By: #### 2 4323-8, , 2776-02 ####[facility] LABORATORYCLIA [id number] [place] [address] [place] ALT [Catalytic activity/Vol] 11 U/L Normal 7-38 [facility] Comment on above: Order Comment: Speci men Type: BLOOD SPECIMENOrdering Facility: [facility] Address: [address] [address] Performed By: #### 2 4323-8, , 2776-02 ####[facility] HOSPITALCLIA [id number] [place] [address] [place] Anion gap [Moles/Vol] 9 mmol/L Normal 9-18 [facility] Comment on above: Order Comment: Speci men Type: BLOOD SPECIMENOrdering Facility: [facility] Address: [address] Performed By: #### 2 4323-8, , 2776-02 ####[facility]PITALIA [id number] [place] [address] [place] AST [Catalytic activity/Vol] 23 U/L Normal 13-35 [facility] Comment on above: Order Comment: Speci men Type: BLOOD SPECIMENOrdering Facility: [facility] Address: [address] Performed By: #### 2 4323-8, , 2776-02 ####[facility] LABORATORYIA [id number] [place] [address] [place] Bilirubin [Mass/Vol] 0.3 mg/dL Normal 0.2-1.3 [facility] Comment on above: Order Comment: Speci men Type: BLOOD SPECIMENOrdering Facility: [facility] Address: [address] [address] Performed By: #### 2 4323-8, , 2776-02 ####[facility] LABORATORYCLIA [id number] [place] [address] [place] Calcium [Mass/Vol] 8.3 mg/dL Low 8.5-10.2 [facility] Comment on above: Order Comment: Speci men Type: BLOOD SPECIMENOrdering Facility: [facility] Address: [address] [place], [place] [address] Performed By: #### 2 4323-8, , 2776-02 ####[facility] HOSPITALCLIA [id number] [place] [address] [place] Chloride [Moles/Vol] 108 mmol/L High 97-105 [facility] Comment on above: Order Comment: Speci men Type: BLOOD SPECIMENOrdering Facility: [facility] Address: [address] [place] [address] Performed By: #### 2 432-8, , 2776-02 ####[facility]ITALIA [id number] [place] [address] [place] CO2 [Moles/Vol] 21 mmol/L Low 22-30 [facility] Comment on above: Order Comment: Speci men Type: BLOOD SPECIMENOrdering Facility: [facility] Address: [address] [place] [address] Performed By: #### 2 4323-8, , 2776-02 ####[facility] LABORATORYIA [id number] [place] [address] [place] Creatinine [Mass/Vol] 0.76 mg/dL Normal 0.58-0.96 [facility] Comment on above: Order Comment: Speci men Type: BLOOD SPECIMENOrdering Facility: [facility] Address: [address] [place] [address] Performed By: #### 2 4323-8, , 2776-02 ####[facility] LABORATORYIA [id number] [facility] [place] [address] [place] Creatinine and Glomerular filtration rate.predicted panel (S/P/Bld) 106 mL/min/1.73m??? Normal >=60 [facility] l Comment on above: Order Comment: Geraldo marrero Type: BLOOD SPECIMENOrdering Facility: [facility] Address: [address] [place], [place] [address] Result Comment: Jessica mated Glomerular Filtration Rate [...] actual GFR. Performed By: #### 2 4323-8, 67341-1, 2776- ####[facility] LABORATORYCLIA [id number] [facility] [place] [address] [place] Glucose [Mass/Vol] 84 mg/dL Normal 74-99 [facility] Comment on above: Order Comment: Geraldo elida Type: BLOOD SPECIMENOrdering Facility: [facility] Address: [address] [place] [address] Result Comment: The [employer] Diabetes Association (ADA) provides guidance for cutoff [...] Standards of Medical Care in Diabetes 2016, [employer]. Diabetes Care. 2016.39(Suppl 1). Performed By: #### 2 4323-8, 30640-1, 2777- ####[facility] LABORATORYCLIA [id number] [facility] [place] [address] [place] Potassium [Moles/Vol] 4.1 mmol/L Normal 3.7-5.1 [facility] Comment on above: Order Comment: Speci men Type: BLOOD SPECIMENOrdering Facility: [facility] Address: [address] [place] [address] Performed By: #### 2 4323-8, , 2776-02 ####[facility] HOSPITALCLIA [id number] [place] [address] [place] Protein [Mass/Vol] 5.2 g/dL Low 6.3-8.0 [facility] Comment on above: Order Comment: Speci men Type: BLOOD SPECIMENOrdering Facility: [facility] Address: [address] [place] [address] Performed By: #### 2 4323-8, , 2776-02 ####[facility]ITALIA [id number] [place] [address] [place] Sodium [Moles/Vol] 138 mmol/L Normal 136-144 [facility] Comment on above: Order Comment: Speci men Type: BLOOD SPECIMENOrdering Facility: [facility] Address: [address] [place] [address] Performed By: #### 2 4323-8, , 2776-02 ####[facility]ITALIA [id number] [place] [address] [place] Urea nitrogen [Mass/Vol] 7 mg/dL Normal 7-21 [facility] Comment on above: Order Comment: Speci men Type: BLOOD SPECIMENOrdering Facility: [facility] Address: [address] [place], [place] [address] Performed By: #### 2 4323-8, , 2776-02 ####[facility]ITALIA [id number] [place] [address] [place] Magnesium SerPl-mCncon 10-28 Magnesium [Mass/Vol] 1.9 mg/dL Normal 1.7-2.3 [facility] Comment on above: Order Comment: Speci men Type: BLOOD SPECIMENOrdering Facility: [facility] Address: [address] [address] Performed By: #### 2 4323-8, , 2776-02 ####[facility] LABORATORYCLIA [id number] [facility] [place] [address] [place] Phosphate SerPl-mCncon 10-28 Phosphate [Mass/Vol] 3.2 mg/dL Normal 2.7-4.8 [facility] Comment on above: Order Comment: Speci men Type: BLOOD SPECIMENOrdering Facility: [facility] Address: [address] [address] Performed By: #### 2 [address], , 2776-02 ####[facility] LABORATORYCLIA [id number] [facility] [place] [address] [place] ANES POSTPROC EVALon 023 ANES POSTPROC EVAL Normal [facility] ANES PRE-OPon 10-27-2022 ANES PRE-OP Normal [facility] CBC panel Auto (Bld)on 10-27 Erythrocyte distribution width (RBC) [Ratio] 13.3 % Normal 11.5-15.0 [facility] Comment on above: Order Comment: Speci men Type: BLOOD SPECIMENOrdering Facility: [facility] Address: [address] [address] Performed By: #### 5 8410-2 ####[facility] LABORATORYIA [id number] [facility] [place] [address] [place] Hematocrit (Bld) [Volume fraction] 33.6 % Low 36.0-46.0 [facility] Comment on above: Order Comment: Speci men Type: BLOOD SPECIMENOrdering Facility: [facility] Address: [address] [address] Performed By: #### 5 8410-2 ####[facility] LABORATORYIA [id number] [facility] [place] [address] [place] Hemoglobin (Bld) [Mass/Vol] 10.9 g/dL Low 11.5-15.5 [facility] Comment on above: Order Comment: Speci men Type: BLOOD SPECIMENOrdering Facility: [facility] Address: [address] [address] Performed By: #### 5 8410-2 ####[facility] LABORATORYIA [id number] [address] [place] MCH (RBC) [Entitic mass] 30.5 pg Normal 26.0-34.0 [facility] Comment on above: Order Comment: Speci men Type: BLOOD SPECIMENOrdering Facility: [facility] Address: [address] [address] Performed By: #### 5 8410-2 ####[facility] [id number] [address] [place] MCHC (RBC) [Mass/Vol] 32.4 g/dL Normal 30.5-36.0 [facility] Comment on above: Order Comment: Speci men Type: BLOOD SPECIMENOrdering Facility: [facility] Address: [address] [address] Performed By: #### 5 8410-2 ####[facility]ITALIA [id number] [address] [place] MCV (RBC) [Entitic vol] 94.1 fL Normal 80.0-100.0 [facility] Comment on above: Order Comment: Speci men Type: BLOOD SPECIMENOrdering Facility: [facility] Address: [address] [address] Performed By: #### 5 8410-2 ####[facility]ITALIA [id number] [address] [place] Nucleated RBC (Bld) [#/Vol] 10*3/uL Normal <0.01 [facility] Comment on above: Order Comment: Speci men Type: BLOOD SPECIMENOrdering Facility: [facility] Address: [address] [address] Performed By: #### 5 8410-2 ####[facility] LABORATORYIA [id number] [facility].[place] [id number] [place] Platelet mean volume (Bld) [Entitic vol] 11.7 fL Normal 9.0-12.7 [facility] Comment on above: Order Comment: Speci men Type: BLOOD SPECIMENOrdering Facility: [facility] Address: [address] [place] [address] Performed By: #### 5 8410-2 ####[facility]ITALIA [id number] [place] [address] [place] Platelets (Bld) [#/Vol] 160 10*3/uL Normal 150-400 [facility] Comment on above: Order Comment: Speci men Type: BLOOD SPECIMENOrdering Facility: [facility] Address: [address] [place] [address] Performed By: #### 5 8410-2 ####[facility]ITALIA [id number] [place] [address] [place] RBC (Bld) [#/Vol] 3.57 10*6/uL Low 3.90-5.20 [facility] Comment on above: Order Comment: Speci men Type: BLOOD SPECIMENOrdering Facility: [facility] Address: [address] [place] [address] Performed By: #### 5 8410-2 ####[facility]ITALIA [id number] [facility] [id number] [place] WBC (Bld) [#/Vol] 3.53 10*3/uL Low 3.70-11.00 [facility] Comment on above: Order Comment: Speci men Type: BLOOD SPECIMENOrdering Facility: [facility] Address: [address] [place] [address] Performed By: #### 5 8410-2 ####[facility] LABORATORYIA [id number] [facility].[place] [id number] [facility] [place] CONSULT PROGon 10-27-2022 CONSULT PROG Normal [facility] CONS[facility] Normal [facility] Comprehensive metabolic 2000 panelon 10-27-2022 Albumin [Mass/Vol] 3.3 g/dL Low 3.9-4.9 [facility] Comment on above: Order Comment: Speci men Type: BLOOD SPECIMENOrdering Facility: [facility] Address: [address] [place] [address] Performed By: #### 2 4323-8, , 2776-02 ####[facility] LABORATORYCLIA [id number] [place] [address] [place] ALP [Catalytic activity/Vol] 52 U/L Normal 34-123 [facility] Comment on above: Order Comment: Speci men Type: BLOOD SPECIMENOrdering Facility: [facility] Address: [address] [place] [address] Performed By: #### 2 4323-8, , 2776-02 ####[facility] HOSPITALCLIA [id number] [place] [address] [place] ALT [Catalytic activity/Vol] 14 U/L Normal 7-38 [facility] Comment on above: Order Comment: Speci men Type: BLOOD SPECIMENOrdering Facility: [facility] Address: [address] [place] [address] Performed By: #### 2 4323-8, , 2776-02 ####[facility] LABORATORYCLIA [id number] [place] [address] [place] Anion gap [Moles/Vol] 8 mmol/L Low 9-18 [facility] Comment on above: Order Comment: Speci men Type: BLOOD SPECIMENOrdering Facility: [facility] Address: [address] [place] [address] Performed By: #### 2 4323-8, , 2776-02 ####[facility] LABORATORYCLIA [id number] [place] [address] [place] AST [Catalytic activity/Vol] 28 U/L Normal 13-35 [facility] Comment on above: Order Comment: Speci men Type: BLOOD SPECIMENOrdering Facility: [facility] Address: [address] [address] Performed By: #### 2 4323-8, , 2776-02 ####[facility] LABORATORYCLIA [id number] [place] [address] [place] Bilirubin [Mass/Vol] 0.2 mg/dL Normal 0.2-1.3 [facility] Comment on above: Order Comment: Speci men Type: BLOOD SPECIMENOrdering Facility: [facility] Address: [address] [address] Performed By: #### 2 4323-8, , 2776-02 ####[facility] LABORATORYCLIA [id number] [place] [address] [place] Calcium [Mass/Vol] 8.1 mg/dL Low 8.5-10.2 [facility] Comment on above: Order Comment: Speci men Type: BLOOD SPECIMENOrdering Facility: [facility] Address: [address] [place] [address] Performed By: #### 2 4323-8, , 2776-02 ####[facility] LABORATORYCLIA [id number] [place] [address] [place] Chloride [Moles/Vol] 110 mmol/L High 97-105 [facility] Comment on above: Order Comment: Speci men Type: BLOOD SPECIMENOrdering Facility: [facility] Address: [address] Performed By: #### 2 4323-8, , 2776-02 ####[facility] LABORATORYCLIA [id number] [place] [address] [place] CO2 [Moles/Vol] 22 mmol/L Normal 22-30 [facility] ital Comment on above: Order Comment: Speci men Type: BLOOD SPECIMENOrdering Facility: [facility] Address: [address] [place] [address] Performed By: #### 2 4323-8, 36278-9, 2776-02 ####[facility] LABORATORYCLIA [id number] [place] [address] [place] Creatinine [Mass/Vol] 0.70 mg/dL Normal 0.58-0.96 [facility] Comment on above: Order Comment: Geraldo marrero Type: BLOOD SPECIMENOrdering Facility: [facility] Address: [address] Performed By: #### 2 4323-8, , 2776-02 ####[facility] LABORATORYIA [id number] [place] [address] [place] Creatinine and Glomerular filtration rate.predicted panel (S/P/Bld) 117 mL/min/1.73m??? Normal >=60 [facility] Comment on above: Order Comment: Geraldo [facility] Type: BLOOD SPECIMENOrdering Facility: [facility] Address: [address] [address] Result Comment: Jessica mated Glomerular Filtration Rate [...] Performed By: #### 2 4323-8, , 2776-02 ####[facility] LABORATORYIA [id number] [place] [address] [place] Glucose [Mass/Vol] 89 mg/dL Normal 74-99 [facility] Comment on above: Order Comment: Geraldo marrero Type: BLOOD SPECIMENOrdering Facility: [facility] Address: [address] [place], [place] [address] Result Comment: The [place] Diabetes Association (ADA) provides guidance for cutoff [...] Standards of Medical Care in Diabetes 2016, [place] [employer]. Diabetes Care. 2016.39(Suppl 1). Performed By: #### 2 4323-8, , 2776-02 ####[facility] H[facility]PITALCLIA [id number] [place] [address] [place] Potassium [Moles/Vol] 4.1 mmol/L Normal 3.7-5.1 [facility] Comment on above: Order Comment: Geraldo marrero Type: BLOOD SPECIMENOrdering Facility: [facility] Address: [address] [place] [address] Performed By: #### 2 432-8, , 2776-02 ####[facility]ITALIA [id number] [place] [address] [place] Protein [Mass/Vol] 5.0 g/dL Low 6.3-8.0 [facility] Comment on above: Order Comment: Geraldo marrero Type: BLOOD SPECIMENOrdering Facility: [facility] Address: [address] [place] [address] Performed By: #### 2 4323-8, , 2776-02 ####[facility]ITALIA [id number] [facility] [place] [address] [place] Sodium [Moles/Vol] 140 mmol/L Normal 136-144 [facility] Comment on above: Order Comment: Lyssai elida Type: BLOOD SPECIMENOrdering Facility: [facility] Address: [address] [place], [place] [address] Performed By: #### 2 4323-8, , 2776-02 ####[facility] LABORATORYIA [id number] [place] [address] [place] Urea nitrogen [Mass/Vol] 5 mg/dL Low 7-21 [facility] Comment on above: Order Comment: Speci men Type: BLOOD SPECIMENOrdering Facility: [facility] Address: [address] [place], [place] [address] Performed By: #### 2 4323-8, 87162-4, 7-1 ####[facility] [id number] [place] [address] [place] Magnesium [facility] 10-27 Magnesium [Mass/Vol] 1.9 mg/dL Normal 1.7-2.3 [facility] Comment on above: Order Comment: Speci men Type: BLOOD SPECIMENOrdering Facility: [facility] Address: [address] [place] [address] Performed By: #### 2 4323-8, , 2776- ####[facility] [id number] [place] [address] [place] NUTRITIONon 10-27-2022 NUTRITION Normal [facility] Phosphate [facility] 10-27 Phosphate [Mass/Vol] 3.1 mg/dL Normal 2.7-4.8 [facility] Comment on above: Order Comment: Speci men Type: BLOOD SPECIMENOrdering Facility: [facility] Address: [address] [place], [place] [address] Performed By: #### 2 4323-8, , 2776-02 ####[facility] [id number] [place] [address] [place] Upper GI endoscopyon 023 Upper GI endoscopy Normal [facility]spital CASE MGT INIT ASSESon 2022 CASE MGT INIT [facility] CBC panel Auto (Bld)on 10-26 Erythrocyte distribution width (RBC) [Ratio] 13.2 % Normal 11.5-15.0 [facility] Comment on above: Order Comment: Speci men Type: BLOOD SPECIMENOrdering Facility: [facility] Address: [address] [address] Performed By: #### 5 8410-2 ####[facility] [id number] [address] OF [facility] Hematocrit (Bld) [Volume fraction] 34.9 % Low 36.0-46.0 [facility] Comment on above: Order Comment: Speci men Type: BLOOD SPECIMENOrdering Facility: [facility] Address: [address] [address] Performed By: #### 5 8410-2 ####[facility] [id number] [address] [place] Hemoglobin (Bld) [Mass/Vol] 11.1 g/dL Low 11.5-15.5 [facility] Comment on above: Order Comment: Speci men Type: BLOOD SPECIMENOrdering Facility: [facility] Address: [address] [address] Performed By: #### 5 8410-2 ####[facility] [id number] [address] MCH (RBC) [Entitic mass] 30.9 pg Normal 26.0-34.0 [facility] Comment on above: Order Comment: Speci men Type: BLOOD SPECIMENOrdering Facility: [facility] Address: [address] [address] Performed By: #### 5 8410-2 ####[facility] [id number] [address] [place] MCHC (RBC) [Mass/Vol] 31.8 g/dL Normal 30.5-36.0 [facility] Comment on above: Order Comment: Speci men Type: BLOOD SPECIMENOrdering Facility: [facility] Address: [address] [address] Performed By: #### 5 8410-2 ####[facility] LABORATORYIA [id number] [address] [place] MCV (RBC) [Entitic vol] 97.2 fL Normal 80.0-100.0 [facility] Comment on above: Order Comment: Speci men Type: BLOOD SPECIMENOrdering Facility: [facility] Address: [address] Performed By: #### 5 8410-2 ####[facility] LABORATORYCLIA [id number] [place] [address] [place] Nucleated RBC (Bld) [#/Vol] 10*3/uL Normal <0.01 [facility] Comment on above: Order Comment: Speci men Type: BLOOD SPECIMENOrdering Facility: [facility] Address: [address] Performed By: #### 5 8410-2 ####[facility] [id number] [place] [address] [place] Platelet mean volume (Bld) [Entitic vol] 11.9 fL Normal 9.0-12.7 [facility] Comment on above: Order Comment: Speci men Type: BLOOD SPECIMENOrdering Facility: [facility] Address: [address] Performed By: #### 5 8410-2 ####[facility] [id number] [address] [place] Platelets (Bld) [#/Vol] 181 10*3/uL Normal 150-400 [facility] Comment on above: Order Comment: Speci men Type: BLOOD SPECIMENOrdering Facility: [facility] Address: [address] Performed By: #### 5 8410-2 ####[facility] LABORATORYIA [id number] [place] [address] [place] RBC (Bld) [#/Vol] 3.59 10*6/uL Low 3.90-5.20 [facility] Comment on above: Order Comment: Speci men Type: BLOOD SPECIMENOrdering Facility: [facility] Address: [address] [address] Performed By: #### 5 8410-2 ####[facility] LABORATORYCLIA [id number] [place] [address] [place] WBC (Bld) [#/Vol] 3.44 10*3/uL Low 3.70-11.00 [facility] Comment on above: Order Comment: Speci men Type: BLOOD SPECIMENOrdering Facility: [facility] Address: [address] Performed By: #### 5 8410-2 ####[facility] LABORATORYCLIA [id number] [place] [address] [place] CONSULTon 10-26-2022 CONSULT Normal [facility] Comprehensive metabolic 2000 panelon 10-26-2022 Albumin [Mass/Vol] 3.3 g/dL Low 3.9-4.9 [facility]spital Comment on above: Order Comment: Speci men Type: BLOOD SPECIMENOrdering Facility: [facility] Address: [address] [address] Performed By: #### 3 016-3, 53150-0, 40520-5, 7-1 ####[facility] [id number] [place] [address] [place] ALP [Catalytic activity/Vol] 52 U/L Normal 34-123 [facility] Comment on above: Order Comment: Speci men Type: BLOOD SPECIMENOrdering Facility: [facility] Address: [address] Performed By: #### 3 016-3, 91569-7, 38881-1, 2777-1 ####[facility] [id number] [place] [address] [place] ALT [Catalytic activity/Vol] 15 U/L Normal 7-38 [facility] Comment on above: Order Comment: Speci men Type: BLOOD SPECIMENOrdering Facility: [facility] Address: [address] [address] Performed By: #### 3 016-3, 21784-6, 93490-6, 2776-02 ####[facility] LABORATORYCLIA [id number] [facility] [place] [address] [place] Anion gap [Moles/Vol] 9 mmol/L Normal 9-18 [facility] Comment on above: Order Comment: Speci men Type: BLOOD SPECIMENOrdering Facility: [facility] Address: [address] [address] Performed By: #### 3 016-3, 49891-0, , 2776-02 ####[facility] LABORATORYCLIA [id number] [place] [address] [place] AST [Catalytic activity/Vol] 30 U/L Normal 13-35 [facility] Comment on above: Order Comment: Speci men Type: BLOOD SPECIMENOrdering Facility: [facility] Address: [address] [place] [address] Performed By: #### 3 016-3, 71191-3, , 2776-02 ####[facility] [id number] [place] [address] [place] Bilirubin [Mass/Vol] 0.4 mg/dL Normal 0.2-1.3 [facility] Comment on above: Order Comment: Speci men Type: BLOOD SPECIMENOrdering Facility: [facility] Address: [address] [place] [address] Performed By: #### 3 016-3, 53852-3, , 2776-02 ####[facility] [id number] [facility] [place] [address] [place] Calcium [Mass/Vol] 8.3 mg/dL Low 8.5-10.2 [facility]ital Comment on above: Order Comment: Speci men Type: BLOOD SPECIMENOrdering Facility: [facility] Address: [address] [place] [address] Performed By: #### 3 016-3, 99794-3, , 2776-02 ####[facility] [id number] [place] [address] [place] Chloride [Moles/Vol] 110 mmol/L High 97-105 [facility] Comment on above: Order Comment: Speci men Type: BLOOD SPECIMENOrdering Facility: [facility] Address: [address] [place] [address] Performed By: #### 3 016-3, 22109-6, 49796-3, 2776- ####[facility] [id number] [place] [id number] [place] CO2 [Moles/Vol] 20 mmol/L Low 22-30 [facility] Comment on above: Order Comment: Speci men Type: BLOOD SPECIMENOrdering Facility: [facility] Address: [address] [place] [address] Performed By: #### 3 016-3, 31415-8, 34580-6, 2776-02 ####[facility] [id number] [place] [address] [place] Creatinine [Mass/Vol] 0.73 mg/dL Normal 0.58-0.96 [facility] Comment on above: Order Comment: Speci men Type: BLOOD SPECIMENOrdering Facility: [facility] Address: [address] [place] [address] Performed By: #### 3 016-3, 12065-0, 04878-0, 2776-02 ####[facility] [id number] [place] [address] [place] Creatinine and Glomerular filtration rate.predicted panel (S/P/Bld) 112 mL/min/1.73m??? Normal >=60 [facility] Comment on above: Order Comment: Speci men Type: BLOOD SPECIMENOrdering Facility: [facility] Address: [address] [place] [address] Result Comment: Jessica mated Glomerular Filtration Rate [...] actual GFR. Performed By: #### 3 016-3, 90883-1, , 2776-02 ####[facility] LABORATORYCLIA [id number] [place] [address] [place] Glucose [Mass/Vol] 83 mg/dL Normal 74-99 [facility] Comment on above: Order Comment: Geraldo marrero Type: BLOOD SPECIMENOrdering Facility: [facility] Address: [address] [place] [address] Result Comment: The [place] Diabetes Association (ADA) provides guidance for cutoff [...] Standards of Medical Care in Diabetes 2016, [place] Diabetes Association. Diabetes Care. 2016.39(Suppl 1). Performed By: #### 3 016-3, 87688-0, , 2776-02 ####[facility] LABORATORYCLIA [id number] [place] [address] [place] Potassium [Moles/Vol] 4.2 mmol/L Normal 3.7-5.1 [facility] Comment on above: Order Comment: Geraldo marrero Type: BLOOD SPECIMENOrdering Facility: [facility] Address: [address] [place] [address] Performed By: #### 3 016-3, 56755-7, , 2776-02 ####[facility] LABORATORYCLIA [id number] [place] [address] [place] Protein [Mass/Vol] 5.0 g/dL Low 6.3-8.0 [facility] Comment on above: Order Comment: Speci men Type: BLOOD SPECIMENOrdering Facility: [facility] Address: [address] [address] Performed By: #### 3 016-3, 70758-1, , 2776-02 ####[facility] [id number] [place] [address] [place] Sodium [Moles/Vol] 139 mmol/L Normal 136-144 [facility] Comment on above: Order Comment: Speci men Type: BLOOD SPECIMENOrdering Facility: [facility] Address: [address] [place] [address] Performed By: #### 3 016-3, 04526-6, , 2776-02 ####[facility] [id number] [place] [address] [place] Urea nitrogen [Mass/Vol] 5 mg/dL Low 7-21 [facility] Comment on above: Order Comment: Speci men Type: BLOOD SPECIMENOrdering Facility: [facility] Address: [address] [address] Performed By: #### 3 016-3, 36200-1, , 2776-02 ####[facility] [id number] [place] [address] [place] Magnesium SerPl-mCncon 10-26 Magnesium [Mass/Vol] 1.9 mg/dL Normal 1.7-2.3 [facility] Comment on above: Order Comment: Speci men Type: BLOOD SPECIMENOrdering Facility: [facility] Address: [address] [address] Performed By: #### 3 016-3, 71177-6, 41580-2, 2776-02 ####[facility] [id number] [place] [address] [place] Phosphate SerPl-mCncon 10-26 Phosphate [Mass/Vol] 4.3 mg/dL Normal 2.7-4.8 [facility] Comment on above: Order Comment: Geraldo marrero Type: BLOOD SPECIMENOrdering Facility: [facility] Address: [address] Performed By: #### 3 016-3, 16973-1, 22415-7, 2776- ####[facility] LABORATORYCLIA [id number] [facility] [id number] [place] TSH SerPl-aCncon 10-26-2022 TSH Qn 0.712 m[IU]/L Normal 0.270-4.200 [facility] Comment on above: Order Comment: [facility] Type: BLOOD SPECIMENOrdering Facility: [facility] Address: [address] [address] [address] Result Comment: If t he patient is , TSH reference range varies by gestational period:First Trimester (weeks 9-12): 0.180-2.990 mIU/LSecond Trimester: 0.110-3.980 mIU/LThird Trimester: 0.480-4.710 mIU/Lisa Johnson et al. A Practical Approach for the Verifications and Determination of Site- and Trimester-Specific Reference Intervals for Thyroid Function tests in . Thyroid, 2019:29:3:412-420. Claus Graf, et al. 2017 Guidelines of the [place] Thyroid Association for the Diagnosis and Management of Thyroid Disease during and the . Thyroid, 2017:27:3:315-389. Performed By: #### 3 016-3, 15497-6, , 2776-02 ####[facility] LABORATORYCLIA [id number] [facility] [place] [address] [place] CBC W Auto Differential pane l (Bld)on 10-25-2022 Basophils (Bld) [#/Vol] 0.04 10*3/uL Normal <0.11 [facility] Comment on above: Order Comment: Geraldo marrero Type: BLOOD SPECIMENOrdering Facility: [facility] Address: [address] [address] [address] Performed By: #### 5 7021-8 ####[facility] LABORATORYCLIA [id number] [facility] [place] [address] [place] Basophils/100 WBC (Bld) 1.1 % Normal [facility] Comment on above: Order Comment: Speci men Type: BLOOD SPECIMENOrdering Facility: [facility] Address: [address] [address] Performed By: #### 5 7021-8 ####[facility] LABORATORYCLIA [id number] [place] [address] [place] Differential cell count method Nom (Bld) Auto Normal [facility] Comment on above: Order Comment: Speci men Type: BLOOD SPECIMENOrdering Facility: [facility] Address: [address] [address] Performed By: #### 5 7021-8 ####[facility]ORATORYIA [id number] [place] [address] [place] Eosinophils (Bld) [#/Vol] 0.07 10*3/uL Normal <0.46 [facility] Comment on above: Order Comment: Speci men Type: BLOOD SPECIMENOrdering Facility: [facility] Address: [address] [place] [address] Performed By: #### 5 7021-8 ####[facility] [id number] [place] [address] [place] Eosinophils/100 WBC (Bld) 1.9 % Normal [facility] Comment on above: Order Comment: Speci men Type: BLOOD SPECIMENOrdering Facility: [facility] Address: [address] [address] Performed By: #### 5 7021-8 ####[facility] LABORATORYIA [id number] [place] [address] [place] Erythrocyte distribution width (RBC) [Ratio] 13.0 % Normal 11.5-15.0 [facility] Comment on above: Order Comment: Speci men Type: BLOOD SPECIMENOrdering Facility: [facility] Address: [address] [place] [address] Performed By: #### 5 7021-8 ####[facility] LABORATORYCLIA [id number] [place] [address] [place] Hematocrit (Bld) [Volume fraction] 39.5 % Normal 36.0-46.0 [facility] Comment on above: Order Comment: Speci men Type: BLOOD SPECIMENOrdering Facility: [facility] Address: [address] [place] [address] Performed By: #### 5 7021-8 ####[facility] LABORATORYCLIA [id number] [place] [address] [place] Hemoglobin (Bld) [Mass/Vol] 13.1 g/dL Normal 11.5-15.5 [facility] Comment on above: Order Comment: Speci men Type: BLOOD SPECIMENOrdering Facility: [facility] Address: [address] [place] [address] Performed By: #### 5 7021-8 ####[facility] LABORATORYCLIA [id number] [place] [address] [place] Immature granulocytes (Bld) [#/Vol] 10*3/uL Normal <0.10 [facility] Comment on above: Order Comment: Speci men Type: BLOOD SPECIMENOrdering Facility: [facility] Address: [address] [place] [address] Performed By: #### 5 7021-8 ####[facility] LABORATORYCLIA [id number] [facility] [place] [address] [place] Immature granulocytes/100 WBC (Bld) 0.3 % Normal [facility] Comment on above: Order Comment: Speci men Type: BLOOD SPECIMENOrdering Facility: [facility] Address: [address] [place], [place] [address] Performed By: #### 5 7021-8 ####[facility] LABORATORYIA [id number] [place] [id number] [place] Lymphocytes (Bld) [#/Vol] 1.11 10*3/uL Normal 1.00-4.00 [facility] Comment on above: Order Comment: Speci men Type: BLOOD SPECIMENOrdering Facility: [facility] Address: [address] [address] Performed By: #### 5 7021-8 ####[facility] LABORATORYIA [id number] [address] [place] Lymphocytes/100 WBC (Bld) 29.4 % Normal [facility] Comment on above: Order Comment: Speci men Type: BLOOD SPECIMENOrdering Facility: [facility] Address: [address] [address] Performed By: #### 5 7021-8 ####[facility] [id number] [place] [address] [place] MCH (RBC) [Entitic mass] 30.5 pg Normal 26.0-34.0 [facility] Comment on above: Order Comment: Speci men Type: BLOOD SPECIMENOrdering Facility: [facility] Address: [address] [address] Performed By: #### 5 7021-8 ####[facility]IA [id number] [address] [place] MCHC (RBC) [Mass/Vol] 33.2 g/dL Normal 30.5-36.0 [facility] Comment on above: Order Comment: Speci men Type: BLOOD SPECIMENOrdering Facility: [facility] Address: [address] [address] Performed By: #### 5 7021-8 ####[facility] [id number] [address] [place] MCV (RBC) [Entitic vol] 92.1 fL Normal 80.0-100.0 [facility] Comment on above: Order Comment: Speci men Type: BLOOD SPECIMENOrdering Facility: [facility] Address: [address] [address] Performed By: #### 5 7021-8 ####[facility] LABORATORYIA [id number] [facility] [place] [address] [place] Monocytes (Bld) [#/Vol] 0.27 10*3/uL Normal <0.87 [facility] Comment on above: Order Comment: Speci men Type: BLOOD SPECIMENOrdering Facility: [facility] Address: [address] [address] Performed By: #### 5 7021-8 ####[facility] LABORATORYCLIA [id number] [place] [address] [place] Monocytes/100 WBC (Bld) 7.1 % Normal [facility] Comment on above: Order Comment: Speci men Type: BLOOD SPECIMENOrdering Facility: [facility] Address: [address] [address] Performed By: #### 5 7021-8 ####[facility]ITALIA [id number] [place] [address] [place] Neutrophils (Bld) [#/Vol] 2.28 10*3/uL Normal 1.45-7.50 [facility] Comment on above: Order Comment: Speci men Type: BLOOD SPECIMENOrdering Facility: [facility] Address: [address] [address] Performed By: #### 5 7021-8 ####[facility] LABORATORYIA [id number] [place] [address] [place] Neutrophils/100 WBC (Bld) 60.2 % Normal [facility] Comment on above: Order Comment: Speci men Type: BLOOD SPECIMENOrdering Facility: [facility] Address: [address] [address] Performed By: #### 5 7021-8 ####[facility] LABORATORYIA [id number] [place] [address] [place] Nucleated RBC (Bld) [#/Vol] 10*3/uL Normal <0.01 [facility] Comment on above: Order Comment: Speci men Type: BLOOD SPECIMENOrdering Facility: [facility] Address: [address] [address] Performed By: #### 5 7021-8 ####[facility] LABORATORYCLIA [id number] [place] [address] [place] Nucleated RBC/100 WBC (Bld) [Ratio] 0.0 /100 WBC Normal [facility] Comment on above: Order Comment: Speci men Type: BLOOD SPECIMENOrdering Facility: [facility] Address: [address] [place] [address] Performed By: #### 5 7021-8 ####[facility] LABORATORYIA [id number] [place] [address] [place] Platelet mean volume (Bld) [Entitic vol] 11.4 fL Normal 9.0-12.7 [facility] Comment on above: Order Comment: Speci men Type: BLOOD SPECIMENOrdering Facility: [facility] Address: [address] [place] [address] Performed By: #### 5 7021-8 ####[facility]IA [id number] [place] [address] [place] Platelets (Bld) [#/Vol] 208 10*3/uL Normal 150-400 [facility] Comment on above: Order Comment: Speci men Type: BLOOD SPECIMENOrdering Facility: [facility] Address: [address] [place] [address] Performed By: #### 5 7021-8 ####[facility] LABORATORYIA [id number] [place] [address] [place] RBC (Bld) [#/Vol] 4.29 10*6/uL Normal 3.90-5.20 [facility] Comment on above: Order Comment: Speci men Type: BLOOD SPECIMENOrdering Facility: [facility] Address: [address] [place], [place] [address] Performed By: #### 5 7021-8 ####[facility] LABORATORYIA [id number] [place] [address] [place] WBC (Bld) [#/Vol] 3.78 10*3/uL Normal 3.70-11.00 [facility] Comment on above: Order Comment: Speci men Type: BLOOD SPECIMENOrdering Facility: [facility] Address: [address] [place] [address] Performed By: #### 5 7021-8 ####[facility] LABORATORYCLIA [id number] [place] [address] [place] [address] ABD/PEL W IVCONon 023 CT ABD/PEL W IVCON Normal [facility]spital Comprehensive metabolic 2000 panelon 10-25-2022 Albumin [Mass/Vol] 4.2 g/dL Normal 3.9-4.9 [facility] Comment on above: Order Comment: Speci men Type: BLOOD SPECIMENOrdering Facility: [facility] Address: [address] [place] [address] Performed By: #### 2 4323-8, 0-3, ####[facility] LABORATORYCLIA [id number] [place] [address] [place] ALP [Catalytic activity/Vol] 70 U/L Normal 34-123 [facility] Comment on above: Order Comment: Speci men Type: BLOOD SPECIMENOrdering Facility: [facility] Address: [address] [place] [address] Performed By: #### 2 4323-8, 3039-3, ####[facility] LABORATORYCLIA [id number] [place] [address] [place] [place] ALT [Catalytic activity/Vol] 21 U/L Normal 7-38 [facility] Comment on above: Order Comment: Speci men Type: BLOOD SPECIMENOrdering Facility: [facility] Address: [address] [place] [address] Performed By: #### 2 4323-8, 0-3, ####[facility] LABORATORYCLIA [id number] [place] [address] [place] Anion gap [Moles/Vol] 10 mmol/L Normal 9-18 [facility] Comment on above: Order Comment: Speci men Type: BLOOD SPECIMENOrdering Facility: [facility] Address: [address] Performed By: #### 2 4323-8, 3039-3, ####[facility] LABORATORYCLIA [id number] [place] [address] [place] AST [Catalytic activity/Vol] 38 U/L High 13-35 [facility] Comment on above: Order Comment: Speci men Type: BLOOD SPECIMENOrdering Facility: [facility] Address: [address] Performed By: #### 2 4323-8, 3, ####[facility] [id number] [place] [address] [place] Bilirubin [Mass/Vol] 0.3 mg/dL Normal 0.2-1.3 [facility] Comment on above: Order Comment: Speci men Type: BLOOD SPECIMENOrdering Facility: [facility] Address: [address] Performed By: #### 2 4323-8, 3, ####[facility] [id number] [place] [address] [place] Calcium [Mass/Vol] 8.8 mg/dL Normal 8.5-10.2 [facility] Comment on above: Order Comment: Speci men Type: BLOOD SPECIMENOrdering Facility: [facility] Address: [address] Performed By: #### 2 4323-8, 3, ####[facility] [id number] [place] [address] [place] Chloride [Moles/Vol] 106 mmol/L High 97-105 [facility] Comment on above: Order Comment: Speci men Type: BLOOD SPECIMENOrdering Facility: [facility] Address: [address] Performed By: #### 2 4323-8, 3040-3, ####[facility] LABORATORYIA [id number] [place] [address] [place] CO2 [Moles/Vol] 22 mmol/L Normal 22-30 [facility] Comment on above: Order Comment: Speci men Type: BLOOD SPECIMENOrdering Facility: [facility] Address: [address] [place], [place] [address] Performed By: #### 2 4323-8, 3040-3, ####[facility] [id number] [place] [address] [place] Creatinine [Mass/Vol] 0.82 mg/dL Normal 0.58-0.96 [facility] Comment on above: Order Comment: Speci men Type: BLOOD SPECIMENOrdering Facility: [facility] Address: [address] [place] [address] Performed By: #### 2 4323-8, 0-3, ####[facility] [id number] [place] [address] [place] Creatinine and Glomerular filtration rate.predicted panel (S/P/Bld) 97 mL/min/1.73m??? Normal >=60 [facility] Comment on above: Order Comment: Speci men Type: BLOOD SPECIMENOrdering Facility: [facility] Address: [address] [place] [address] Result Comment: Jessica mated Glomerular Filtration Rate [...] GFR. Performed By: #### 2 4323-8, 3040-3, ####[facility] LABORATORYIA [id number] [place] [address] [place] Glucose [Mass/Vol] 85 mg/dL Normal 74-99 [facility] Comment on above: Order Comment: Geraldo marrero Type: BLOOD SPECIMENOrdering Facility: [facility] Address: [address] [place] [address] Result Comment: The [place] Diabetes Association (ADA) provides guidance for cutoff [...] Standards of Medical Care in Diabetes 2016, [place] Diabetes Association. Diabetes Care. 2016.39(Suppl 1). Performed By: #### 2 4323-8, 3040-3, 75910-4 ####[facility] [id number] [facility] [place] [address] [place] Potassium [Moles/Vol] 3.8 mmol/L Normal 3.7-5.1 [facility] Comment on above: Order Comment: Geraldo marrero Type: BLOOD SPECIMENOrdering Facility: [facility] Address: [address] [place], [place] [address] Performed By: #### 2 4323-8, 3040-3, ####[facility] [id number] [facility] [place] [address] [place] Protein [Mass/Vol] 6.5 g/dL Normal 6.3-8.0 [facility] Comment on above: Order Comment: Geraldo marrero Type: BLOOD SPECIMENOrdering Facility: [facility] Address: [address] [place] [address] Performed By: #### 2 4323-8, 3040-3, 89412-1 ####[facility] LABORATORYCLIA [id number] [facility] [place] [address] [facility] Sodium [Moles/Vol] 138 mmol/L Normal 136-144 [facility] Comment on above: Order Comment: Speci men Type: BLOOD SPECIMENOrdering Facility: [facility] Address: [address] [place] [id number] Performed By: #### 2 4323-8, 3040-3, 10193-4 ####[facility] LABORATORYCLIA [id number] [place] [id number] [facility] Urea nitrogen [Mass/Vol] 7 mg/dL Normal 7-21 [facility] Comment on above: Order Comment: Speci men Type: BLOOD SPECIMENOrdering Facility: [facility] Address: [address] [place] [address] Performed By: #### 2 4323-8, 3040-3, 86902-4 ####[facility] LABORATORYCLIA [id number] [place] [address] [facility] [place] D dimer FEU PPP-mCncon 10-25 Fibrin D-dimer FEU (PPP) [Mass/Vol] <190 Normal <500 [facility] Comment on above: Order Comment: Speci men Type: BLOOD SPECIMENOrdering Facility: [facility] Address: [address] [place] [address] Performed By: #### 4 8065-7 ####[facility] LABORATORYCLIA [id number] [place] [address] [facility] [place] ECG COMPLETEon 10-25-2022 ECG COMPLETE Normal [facility] ED NOTEon 10-25-2022 ED NOTE HNO ID: [id number] Author: Anam Myers RN Service: ? Author Type: Registered Nurse Type: ED Notes Filed: 10/25/2022 8:19 AM Note Text: Pt unable to urinate sat this time. Aware urine sample is needed. Normal [facility] ED NOTE Normal [facility] ED PROV NOTEon 10-25-2022 ED PROV NOTE Normal [facility] HISTORY PHYSICALon HISTORY PHYSICAL Normal [facility] Lipase SerPl-cCncon 10-26-19 23 Lipase [Catalytic activity/Vol] 29 U/L Normal 16-61 [facility] Comment on above: Order Comment: Speci men Type: BLOOD SPECIMENOrdering Facility: [facility] Address: [address] [place] [address] Performed By: #### 2 4323-8, 3040-3, 64165-6 ####[facility] LABORATORYIA [id number] [place] [address] [facility] Magnesium SerPl-mCncon 10-25 Magnesium [Mass/Vol] 1.9 mg/dL Normal 1.7-2.3 [facility] Comment on above: Order Comment: Speci men Type: BLOOD SPECIMENOrdering Facility: [facility] Address: [address] [place] [address] Performed By: #### 2 4323-8, 0-3, ####[facility] LABORATORYIA [id number] [place] [address] [place] NURSING PROGon 10-25-2022 NURSING PROG Normal [facility] Urinalysis complete panel (U )on 10-25-2022 Bilirubin Ql (U) Negative Normal Negative [facility] Comment on above: Order Comment: Speci men Type: URINE SPECIMENOrdering Facility: [facility] Address: [address] [place] [address] Performed By: #### 2 4356-8 ####[facility] LABORATORYIA [id number] [place] [address] [place] Clarity (Unsp spec) Clear Normal Clear [facility] Comment on above: Order Comment: Speci men Type: URINE SPECIMENOrdering Facility: [facility] Address: [address] [place] [address] Performed By: #### 2 4356-8 ####[facility] [id number] [place] [address] [place] Color (U) Colorless Normal yellow [facility] Comment on above: Order Comment: Speci men Type: URINE SPECIMENOrdering Facility: [facility] Address: [facility] [place] [address] Performed By: #### 2 4356-8 ####[facility] [id number] [place] [address] [place] Epithelial cells LM.HPF (Urine sed) [#/Area] Few Normal [facility] Comment on above: Order Comment: Speci men Type: URINE SPECIMENOrdering Facility: [facility] Address: [address] [place] [address] Performed By: #### 2 4356-8 ####[facility] [id number] [place] [address] [place] Glucose Test strip (U) [Mass/Vol] Negative Normal Trace, Negative [facility] Comment on above: Order Comment: Speci men Type: URINE SPECIMENOrdering Facility: [facility] Address: [address] [place] [address] Performed By: #### 2 4356-8 ####[facility] [id number] [place] [address] [place] Hemoglobin Ql (U) Negative Normal Negative, Trace [facility] Comment on above: Order Comment: Speci men Type: URINE SPECIMENOrdering Facility: [facility] Address: [address] [place] [address] Performed By: #### 2 4356-8 ####[facility] [id number] [place] [address] [place] Ketones Ql (U) Negative Normal Negative, Trace [facility] Comment on above: Order Comment: Speci men Type: URINE SPECIMENOrdering Facility: [facility] Address: [address] [place] [address] Performed By: #### 2 4356-8 ####[facility] [id number] [place] [address] [place] Leukocyte esterase Test strip Ql (U) Negative Normal Negative, 25 Patito/uL [facility] Comment on above: Order Comment: Speci men Type: URINE SPECIMENOrdering Facility: [facility] Address: [address] [place] [address] Performed By: #### 2 4356-8 ####[facility] [id number] [place] [address] [place] Nitrite Ql (U) Negative Normal Negative [facility] Comment on above: Order Comment: Speci men Type: URINE SPECIMENOrdering Facility: [facility] Address: [address] [place] [address] Performed By: #### 2 4356-8 ####[facility] [id number] [place] [address] [place] pH (U) 6.5 [pH] Normal 5.0-8.0 [facility] Comment on above: Order Comment: Speci men Type: URINE SPECIMENOrdering Facility: [facility] Address: [address] [place] [address] Performed By: #### 2 4356-8 ####[facility] [id number] [place] [address] [place] Protein (U) [Mass/Vol] Negative Normal Trace, Negative [facility] Comment on above: Order Comment: Speci men Type: URINE SPECIMENOrdering Facility: [facility] Address: [address] [place] [address] Performed By: #### 2 4356-8 ####[facility] [id number] [place] [address] [place] RBC LM.HPF (Urine sed) [#/Area] 0-3 /HPF Normal 0-3 /HPF [facility] Comment on above: Order Comment: Speci men Type: URINE SPECIMENOrdering Facility: [facility] Address: [address] [place] [address] Performed By: #### 2 4356-8 ####[facility] [id number] [place] [id number] [place] Specific gravity (U) [Rel density] 1.041 High 1.005-1.030 [facility] Comment on above: Order Comment: Speci men Type: URINE SPECIMENOrdering Facility: [facility] Address: [address] [place] [address] Performed By: #### 2 4356-8 ####[facility] LABORATORYCLIA [id number] [address] Urobilinogen Ql (U) Normal Normal Negative [facility] Comment on above: Order Comment: Speci men Type: URINE SPECIMENOrdering Facility: [facility] Address: [address] [place] [address] Performed By: #### 2 4356-8 ####[facility] [id number] [address] [place] WBC LM.HPF (Urine sed) [#/Area] 0-5 /HPF Normal 0-5 /HPF [facility] Comment on above: Order Comment: Speci men Type: URINE SPECIMENOrdering Facility: [facility] Address: [address] [place] [address] Performed By: #### 2 4356-8 ####[facility] [id number] [address] [place] XR ABDOMEN (2 [...] 10-23-2022 Abs. Basophil 0.03 k/uL Normal 0.00-0.20 [facility] Comment on above: Performed By: #### L IP, CP, CDP #### [address] [place] [address] [employer] Operator: Baldomero Espinoza MD Abs.Imm.Granulocyte <0.03 Normal 0.00-0.30 [facility] Comment on above: Performed By: #### L IP, CP, CDP #### [address] [place] [address] [employer] Operator: Baldomero Espinoza MD Abs.Neutrophil (Seg) 3.51 k/uL Normal 1.50-8.10 [facility] Comment on above: Performed By: #### L IP, CP, CDP #### [address] [place] [address] [employer] Operator: Baldomero Espinoza MD Basophils/100 WBC (Bld) 1 % Normal 0-2 [facility] Comment on above: Performed By: #### L IP, CP, CDP #### [address] [place] [address] [employer] Operator: Baldomero Espinoza MD Eosinophils (Bld) [#/Vol] 0.07 10*3/uL Normal 0.00-0.44 [facility] Comment on above: Performed By: #### L IP, CP, CDP #### [address] [place] [address] [employer] Operator: Baldomero Espinoza MD Eosinophils/100 WBC (Bld) 1 % Normal 1-4 [facility] Comment on above: Performed By: #### L IP, CP, CDP #### [address] [place] [address] [employer] Operator: Baldomero Espinoza MD Erythrocyte distribution width (RBC) [Ratio] 12.7 % Normal 11.8-14.4 [facility] Comment on above: Performed By: #### L IP, CP, CDP #### [address] [place], [place] [address] [employer] Operator: Baldomero Espinoza MD Hematocrit (Bld) [Volume fraction] 36.0 % Low 36.3-47.1 [facility] Comment on above: Performed By: #### L IP, CP, CDP #### [address] [place], [facility]83 [employer] Operator: Baldomero Espinoza MD Hemoglobin (Bld) [Mass/Vol] 12.2 g/dL Normal 11.9-15.1 [facility] Comment on above: Performed By: #### L IP, CP, CDP #### [address] [place], [facility]83 [employer] Operator: Baldomero Espinoza MD Immature granulocytes/100 WBC (Bld) 0 % Normal 0 [facility] Comment on above: Performed By: #### L IP, CP, CDP #### [address] [place], [facility]83 [employer] Operator: Baldomero Espinoza MD Lymphocytes (Bld) [#/Vol] 2.05 10*3/uL Normal 1.10-3.70 [facility] Comment on above: Performed By: #### L IP, CP, CDP #### [address] [place], [facility]83 [employer] Operator: Baldomero Espinoza MD Lymphocytes/100 WBC (Bld) 34 % Normal 24-43 [facility] Comment on above: Performed By: #### L IP, CP, CDP #### [address] [place], [facility]83 [employer] Operator: Baldomero Espinoza MD MCH (RBC) [Entitic mass] 30.8 pg Normal 25.2-33.5 [facility] Comment on above: Performed By: #### L IP, CP, CDP #### [address] [place], [facility]83 [employer] Operator: Baldomero Espinoza MD MCHC (RBC) [Mass/Vol] 33.9 g/dL Normal 28.4-34.8 [facility] Comment on above: Performed By: #### L IP, CP, CDP #### [facility] [address] [place] [address] [employer] Operator: Baldomero Espinoza MD MCV (RBC) [Entitic vol] 90.9 fL Normal 82.6-102.9 [facility] Comment on above: Performed By: #### L IP, CP, CDP #### [address] [place] [address] [employer] Operator: Baldomero Espinoza MD Monocytes (Bld) [#/Vol] 0.44 10*3/uL Normal 0.10-1.20 [facility] Comment on above: Performed By: #### L KEVIN CP, CDP #### [address] [place], [facility]83 [employer] Operator: Baldomero Espinoza MD Monocytes/100 WBC (Bld) 7 % Normal 3-12 [facility] Comment on above: Performed By: #### L KEVIN CP, CDP #### [address] [place], [facility]83 [employer] Operator: Baldomero Espinoza MD Neutrophil (Seg) 57 % Normal 36-65 [facility] Comment on above: Performed By: #### L IP, CP, CDP #### [facility] [address] [place], [place] [address] [employer] Operator: Baldomero Espinoza MD NRBC Automated 0.0 per 100 WBC Normal 0.0 [facility] Comment on above: Performed By: #### L IP, CP, CDP #### [facility] [address] [place], [place] [address] [employer] Operator: Baldomero Espinoza MD Platelet mean volume (Bld) [Entitic vol] 11.1 fL Normal 8.1-13.5 [facility] Comment on above: Performed By: #### L IP, CP, CDP #### [facility] [address] [place] [address] [employer] Operator: Baldomero Espinoza MD Platelets (Bld) [#/Vol] 226 10*3/uL Normal 138-453 [facility] Comment on above: Performed By: #### L IP, CP, CDP #### [facility] [address] [place], [place] [address] [employer] Operator: Baldomero Espinoza MD RBC (Bld) [#/Vol] 3.96 10*6/uL Normal 3.95-5.11 [facility] Comment on above: Performed By: #### L IP, CP, CDP #### [address] [place], [place] [address] [employer] Operator: Baldomero Espinoza MD WBC (Bld) [#/Vol] 6.1 10*3/uL Normal 3.5-11.3 [facility] Comment on above: Performed By: #### L IP, CP, CDP #### [address] [place], [place] [address] [employer] Operator: Baldomero Espinoza MD Comp Metabolic Profon 2022 Albumin [Mass/Vol] 4.1 g/dL Normal 3.5-5.2 [facility] Comment on above: Performed By: #### L IP, CP, CDP #### [address] [place], [place] [address] [employer] Operator: Baldomero Espinoza MD Albumin/Glob Ratio 1.7 Normal 1.0-2.5 [facility] Comment on above: Performed By: #### L IP, CP, CDP #### [facility] [address] [place] [address] [employer] Operator: Baldomero Espinoza MD Alkaline Phos 64 U/L Normal 35-104 [facility] Comment on above: Performed By: #### L IP, CP, CDP #### [facility] [address] [place], [place] [address] [employer] Operator: Baldomero Espinoza MD ALT [Catalytic activity/Vol] 19 U/L Normal 5-33 [facility] Comment on above: Performed By: #### L IP, CP, CDP #### [facility] [address] [place], [place] [address] [employer] Operator: Baldomero Espinoza MD Anion gap [Moles/Vol] 11 mmol/L Normal 9-17 [facility] Comment on above: Performed By: #### L IP, CP, CDP #### [address] [place], [place] [address] [employer] Operator: Baldomero Espinoza MD AST [Catalytic activity/Vol] 33 U/L High <32 [facility] Comment on above: Performed By: #### L IP, CP, CDP #### [address] [place], [place] [address] [employer] Operator: Baldomero Espinoza MD Bilirubin [Mass/Vol] 0.5 mg/dL Normal 0.3-1.2 [facility] Comment on above: Performed By: #### L IP, CP, CDP #### [address] [place], [place] [address] [employer] Operator: Baldomero Espinoza MD BUN/CRE Ratio 14 Normal 9-20 [facility] Comment on above: Performed By: #### L IP, CP, CDP #### [address] [place] [address] [employer] Operator: Baldomero Espinoza MD Calcium [Mass/Vol] 9.0 mg/dL Normal 8.6-10.4 [facility] Comment on above: Performed By: #### L IP, CP, CDP #### [facility] [address] [place] [address] [employer] Operator: Baldomero Espinoza MD Chloride [Moles/Vol] 103 mmol/L Normal 98-107 [facility] Comment on above: Performed By: #### L IP, CP, CDP #### [facility] [address] [place] [address] [employer] Operator: Baldomero Espinoza MD CO2 [Moles/Vol] 22 mmol/L Normal 20-31 [facility] Comment on above: Performed By: #### L IP, CP, CDP #### [facility] [address] [place] [address] [employer] Operator: Baldomero Espinoza MD Creatinine [Mass/Vol] 0.7 mg/dL Normal 0.5-0.9 [facility] Comment on above: Performed By: #### L IP, CP, CDP #### [facility] [address] [place], [facility]83 [employer] Operator: Baldomero Espinoza MD GFR/1.73 sq M.predicted [...] By: #### L IP, CP, CDP #### [facility] [address] [place] [address] [employer] Operator: Baldomero Espinoza MD Glucose [Mass/Vol] 86 mg/dL Normal 70-99 [facility] Comment on above: Performed By: #### L IP, CP, CDP #### [facility] [address] [place] [address] [employer] Operator: Baldomero Espinoza MD Potassium [Moles/Vol] 3.4 mmol/L Low 3.7-5.3 [facility] Comment on above: Performed By: #### L IP, CP, CDP #### [facility] [address] [place], [place] [address] [employer] Operator: Baldomero Espinoza MD Protein [Mass/Vol] 6.5 g/dL Normal 6.4-8.3 [facility] Comment on above: Performed By: #### L IP, CP, CDP #### [facility] [address] [place] [address] [employer] Operator: Baldomero Espinoza MD Sodium [Moles/Vol] 136 mmol/L Normal 135-144 [facility] Comment on above: Performed By: #### L IP, CP, CDP #### [facility] [address] [place], [place] [address] [employer] Operator: Baldomero Espinoza MD Urea nitrogen [Mass/Vol] 10 mg/dL Normal 6-20 [facility] Comment on above: Performed By: #### L IP, CP, CDP #### [facility] [address] [place], [place] [address] [employer] Operator: Baldomero Espinoza MD HCG, ,Urineon 10-23 [...] with quantitative serum b-hCG level is suggested. [employer] has confirmed the use of plasma for this test. This has not been cleared or approved by the U.S. Food and Drug Administration. The FDA has determined that such clearance is not necessary. Performed By: #### U HCG, UAMIC #### [facility] [address] [place], [place] [address] [employer] Operator: Baldomero Espinoza MD Lactic Acidon 10-23-2022 Lactate [Moles/Vol] 0.8 mmol/L Normal 0.5-2.2 [facility] Comment on above: Performed By: #### L ACTIC #### [facility] [address] [place], [place] [address] [employer] Operator: Baldomero Espinoza MD Lipaseon 10-23-2022 Lipase [Catalytic activity/Vol] 32 U/L Normal 13-60 [facility] Comment on above: Performed By: #### L IP, CP, CDP #### [facility] [address] [place], [place] [address] [employer] Operator: Baldomero Espinoza MD Urinalysis w/ Microon 2022 Bacteria 1+ Abnormal NONE [facility] Comment on above: Performed By: #### U HCG, UAMIC ####[facility] [place] , [place] [address] [facility] Director: Baldomero Espinoza MD Bilirubin, SemiQt,Ur Negative Normal NEG [facility] Comment on above: Performed By: #### U HCG, UAMIC ####[facility] [place] , [place] [address] Lab Director: Baldomero Espinoza MD Blood, Urine Negative Normal NEG [facility] Comment on above: Performed By: #### U HCG, UAMIC ####[facility] [facility] [place] , [place] [id number] Lab Director: Baldomero Espinoza MD Clarity (U) Clear Normal CLEAR [facility] Comment on above: Performed By: #### U HCG, UAMIC ####[facility] [place] , [place] [id number] Lab Director: Baldomero Espinoza MD Color (U) Yellow Normal YEL [facility] Comment on above: Performed By: #### U HCG, UAMIC ####[address] [place] [address] Lab Director: Baldomero Espinoza MD Epithelial cells LM Ql (Urine sed) 2 TO 5 Normal 0-25 [facility] Comment on above: Performed By: #### U HCG, UAMIC ####[address] [place] [address] Lab Director: Baldomero Espinoza MD Glucose Ql (U) Negative Normal NEG [facility] Comment on above: Performed By: #### U HCG, UAMIC ####[address] [place] [address] Lab Director: Baldomero Espinoza MD Ketones Ql (U) Negative Normal NEG [facility] Comment on above: Performed By: #### U HCG, UAMIC ####[address] [place] [address] Lab Director: Baldomero Espinoza MD Leukocyte esterase Test strip Ql (U) Negative Normal NEG [facility] Comment on above: Performed By: #### U HCG, UAMIC ####[address] [place] [address] Lab Director: Baldomero Espinoza MD Mucus Strands TRACE Abnormal NONE [facility] Comment on above: Performed By: #### U HCG, UAMIC ####[address] [place] [address] Lab Director: Baldomero Espinoza MD Nitrite,Ur Negative Normal NEG [facility] Comment on above: Performed By: #### U HCG, UAMIC ####[address] [place] [address] Lab Director: Baldomero Espinoza MD PH,Ur 6.5 Normal 5.0-9.0 [facility] Comment on above: Performed By: #### U HCG, UAMIC ####[address] , [place] [address] Lab Director: Baldomero Espinoza MD Protein Ql (U) Negative Normal NEG [facility] Comment on above: Performed By: #### U HCG, UAMIC ####[address] , [place] [address] lab Director: Baldomero Espinoza MD Spec. [place],Ur 1.010 Normal 1.010-1.020 [facility] Comment on above: Performed By: #### U HCG, UAMIC ####[address] , [place] [id number] lab Director: Baldomero Espinoza MD Urine RBC's 0 TO 2 Normal 0-2 [facility] Comment on above: Performed By: #### U HCG, UAMIC ####[address] , [place] [address] lab Director: Baldomero Espinoza MD Urine WBC's 0 TO 2 Normal 0-5 [facility] Comment on above: Performed By: #### U HCG, UAMIC ####[address] , [place] [address] lab Director: Baldomero Espinoza MD Urobilinogen,Ur Normal Normal 0.0-1.0 [facility] Comment on above: Performed By: #### U HCG, UAMIC ####[address] , [place] [id number] lab Director: Baldomero Espinoza MD CHEMISTRYOrdered By: SYSTEM SYSTEM on 10-20-2022 Albumin [Mass/Vol] 4.2 g/dL Normal 3.3 - 5.0 gm/dL [facility] Remisol ALP [Catalytic activity/Vol] 55 [iU]/d Normal 21 - 98 Int._Unit/L [facility] Remisol ALT No additional P-5'-P [Catalytic activity/Vol] 27 [iU]/d Normal 6 - 46 Int._Unit/L [facility] Remisol AST [Catalytic activity/Vol] 42 [iU]/d Normal 5 - 43 Int._Unit/L [facility] Remisol Bilirubin [Mass/Vol] 0.4 mg/dL Normal 0.0 - 1.1 mg/dL [facility] Rem[facility] Calcium [Mass/Vol] 9.0 mg/dL Normal 8.9 - 11.1 mg/dL [facility] Chloride [Moles/Vol] 108 mmol/L Normal 101 - 111 mmol/L [facility] CO2 [Moles/Vol] 24 mmol/L Normal 21 - 31 mmol/L [facility] Remisol Creatinine [Mass/Vol] 0.9 mg/dL Normal 0.5 - 1.3 mg/dL [facility] Remisol GFR/1.73 sq M.predicted among non-blacks MDRD (S/P/Bld) [Vol rate/Area] 87 mL/min/1.73 m2 Normal >=59mL/min/1.73 m2 [facility] Chem S Lipase [Catalytic activity/Vol] 35 U/L Normal 13 - 58 unit/L [facility] Remisol Potassium [Moles/Vol] 3.8 mmol/L Normal 3.5 - 5.3 mmol/L [facility] Remisol Protein [Mass/Vol] 7.2 g/dL Normal 6.0 - 7.8 gm/dL [facility] Remisol Sodium [Moles/Vol] 139 mmol/L Normal 135 - 145 mmol/L [facility] Remisol Urea nitrogen [Mass/Vol] 11 mg/dL Normal 5 - 21 mg/dL [facility] Remisol CHEMISTRYOrdered By: Pranav Meng on 10-20-2022 Albumin/Globulin [Mass ratio] 1.4 {ratio} Normal 1.1 - 2.2 [facility] Chem S Anion gap [Moles/Vol] 11 mmol/L Normal 6 - 16 mEq/L [facility] Chem S Globulin (S) [Mass/Vol] 3.0 g/dL Normal 1.4 - 4.0 gm/dL [facility] Chem S Glucose [Mass/Vol] 86 mg/dL Normal 55 - 199 mg/dL [facility] Chem S Urea nitrogen/Creatinine [Mass ratio] 12 mg/mg Normal 10 - 20 [facility] Chem S HEMATOLOGYOrdered By: SYSTEM SYSTEM on 10-20-2022 Basophils/100 [...] 9.7 fL Normal 6.4 - 10.8 fL [facility] HemeAutoSS Platelets (Bld) [#/Vol] 258.0 E9/L Normal 150.0 - 500.0 E9/L [facility] HemeAutoSS RBC (Bld) [#/Vol] 4.5 E12/L Normal 4.3 - 5.9 E12/L [facility] HemeAutoSS WBC corrected for nucl RBC Auto (Bld) [#/Vol] 4.5 E9/L Normal 4.0 - 11.0 E9/L [facility] HemeAutoSS URINALYSISOrdered By: Edilberto Meng on 10-20-2022 Bilirubin [...] AM) Normal Negative [facility] UA Auto SS [place].plasma/Lith ium.RBC (Bld) [Mass ratio] 0-3 /HPF Normal [...] AM) Invalid Interpretation Code 1.005 - 1.030 [facility] UA Auto SS UA Spec Desc Clean Catch (10/20/22 10:25 AM) Normal [facility] UA Auto SS Urobilinogen Qn (U) 0.6813887 {Munir'U}/dL Normal 0.0 - 1.0 EU/dL [facility] UA Auto SS WBC Auto Ql (U) Negative (10/20/22 10:25 AM) Normal Negative [facility] UA Auto SS WBC LM.HPF (Urine sed) [#/Area] 0-5 /HPF Normal 0-5/HPF [facility] UA Auto SS CHEMISTRYOrdered By: SYSTEM SYSTEM on 10-19-2022 Albumin [Mass/Vol] 4.4 g/dL Normal 3.3 - 5.0 gm/dL [facility] Remisol Albumin/Globulin [Mass ratio] 1.5 {ratio} Normal 1.1 - 2.2 [facility] Remisol ALP [Catalytic activity/Vol] 63 [iU]/d Normal 21 - 98 Int._Unit/L [facility] Remisol ALT No additional P-5'-P [Catalytic activity/Vol] 30 [iU]/d Normal 6 - 46 Int._Unit/L [facility] Remisol Anion gap [Moles/Vol] 10 mmol/L Normal 6 - 16 mEq/L [facility] Remisol AST [Catalytic activity/Vol] 47 [iU]/d High 5 - 43 Int._Unit/L [facility] Remisol Bilirubin [Mass/Vol] 0.5 mg/dL Normal 0.0 - 1.1 mg/dL [facility] Remisol Bilirubin.direct [Mass/Vol] mg/dL Normal 0.1 - 0.4 mg/dL [facility] Remisol Bilirubin.indirect [Mass or moles/Vol] Unable to Calculate mg/dL Invalid Interpretation Code 0.1 - 0.9 mg/dL [facility] Remisol Calcium [Mass/Vol] 9.3 mg/dL Normal 8.9 - 11.1 mg/dL [facility]isol Chloride [Moles/Vol] 108 mmol/L Normal 101 - 111 mmol/L [facility] CO2 [Moles/Vol] 25 mmol/L Normal 21 - 31 mmol/L [facility] Remisol Creatinine [Mass/Vol] 0.8 mg/dL Normal 0.5 - 1.3 mg/dL [facility] Remisol GFR/1.73 sq M.predicted among non-blacks MDRD (S/P/Bld) [Vol rate/Area] 100 mL/min/1.73 m2 Normal >=59mL/min/1.73 m2 [facility] Chem S Globulin (S) [Mass/Vol] 3.0 g/dL Normal 1.4 - 4.0 gm/dL [facility] Remisol Glucose [Mass/Vol] 83 mg/dL Normal 55 - 199 mg/dL [facility] Remisol Lipase [Catalytic activity/Vol] 89 U/L High 13 - 58 unit/L [facility] Remisol Potassium [Moles/Vol] 4.1 mmol/L Normal 3.5 - 5.3 mmol/L [facility] Remisol Protein [Mass/Vol] 7.4 g/dL Normal 6.0 - 7.8 gm/dL [facility] Sodium [Moles/Vol] 139 mmol/L Normal 135 - 145 mmol/L [facility] Remisol TSH Qn 0.68 m[IU]/L Normal 0.34 - 5.60 mcIU/mL [facility] Remisol Urea nitrogen [Mass/Vol] 9 mg/dL Normal 5 - 21 mg/dL [facility] Remisol Urea nitrogen/Creatinine [Mass ratio] 11 mg/mg Normal 10 - 20 [facility] Remisol HEMATOLOGYOrdered By: SYSTEM SYSTEM on 10-19-2022 Basophils/100 WBC (Bld) 0.8 % Normal 0.0 - 2.0 % [facility] HemeAutoSS Basophils/Leukocyte s Auto (Bld) [Pure # fraction] 0.0 E9/L Normal 0.0 - 0.2 E9/L [facility] HemeAutoSS Eosinophils/100 WBC (Bld) 3.5 % Normal 0.0 - 8.0 % [facility] HemeAutoSS Eosinophils/Leukocy stevan Auto (Bld) [Pure # fraction] 0.2 E9/L Normal 0.0 - 0.5 E9/L [facility]eAutoSS Lymphocytes/100 WBC (Bld) 47.3 % Normal 14.0 - 50.0 % [facility] HemeAutoSS Lymphocytes/Leukocy stevan Auto (Bld) [Pure # fraction] 2.1 E9/L Normal 1.0 - 4.0 E9/L [facility] HemeAutoSS Monocytes/100 WBC (Bld) 6.6 % Normal 4.0 - 14.0 % [facility] HemeAutoSS Monocytes/Leukocyte s Auto (Bld) [Pure # fraction] 0.3 E9/L Normal 0.2 - 1.0 E9/L [facility] HemeAutoSS Neutrophils/100 WBC (Bld) 41.8 % Normal 36.0 - 75.0 % [facility] HemeAutoSS Neutrophils/Leukocy stevan Auto (Bld) [Pure # fraction] 1.8 E9/L Low 2.0 - 7.5 E9/L [facility] HemeAutoSS HEMATOLOGYOrdered By: Kaye brito on 10-19-2022 Erythrocyte distribution width (RBC) [Ratio] 13.7 % Normal 10.9 - 14.2 % [facility] HemeAutoSS Hematocrit (Bld) [Volume fraction] 40.7 % Normal 34.0 - 46.0 % [facility] HemeAutoSS Hemoglobin (Bld) [Mass/Vol] 14.1 g/dL Normal 12.0 - 16.0 gm/dL [facility] HemeAutoSS MCH (RBC) [Entitic mass] 31.0 pg Normal 27.0 - 34.0 pg [facility] HemeAutoSS MCHC (RBC) [Mass/Vol] 34.5 g/dL Normal 31.4 - 36.0 gm/dL [facility] HemeAutoSS MCV (RBC) [Entitic vol] 89.8 fL Normal 80.0 - 100.0 fL [facility] HemeAutoSS Platelet mean volume (Bld) [Entitic vol] 10.3 fL Normal 6.4 - 10.8 fL [facility] HemeAutoSS Platelets (Bld) [#/Vol] 245.0 E9/L Normal 150.0 - 500.0 E9/L [facility] HemeAutoSS RBC (Bld) [#/Vol] 4.5 E12/L Normal 4.3 - 5.9 E12/L [facility] HemeAutoSS WBC corrected for nucl RBC Auto (Bld) [#/Vol] 4.4 E9/L Normal 4.0 - 11.0 E9/L [facility] HemeAutoSS URINALYSISOrdered By: Kaye brito on 10-19-2022 Bilirubin Ql (U) Negative (10/19/22 9:18 AM) Normal Negative [facility] UA Auto SS Clarity (U) Clear (10/19/22 9:18 AM) Normal Clear [facility] UA Auto SS Color (U) Yellow (10/19/22 9:18 AM) Normal Yellow [facility] UA Auto SS Epithelial cells.squamous LM.HPF (Urine sed) [#/Area] 0-2 /HPF Normal 0-2/HPF [facility] UA Auto SS Glucose Test strip (U) [Mass/Vol] Negative (10/19/22 9:18 AM) Normal Negative [facility] UA Auto SS Hemoglobin Ql (U) Negative (10/19/22 9:18 AM) Normal Negative [facility] UA Auto SS Ketones (U) [Mass/Vol] Negative (10/19/22 9:18 AM) Normal Negative [facility] UA Auto SS [place].plasma/Lith ium.RBC (Bld) [Mass ratio] 0-3 /HPF Normal [...] Desc Clean Catch (10/19/22 9:18 AM) Normal [facility] UA Auto SS Urobilinogen Qn (U) 0.9486474 {Munir'U}/dL Normal 0.0 - 1.0 EU/dL [facility] UA Auto SS WBC Auto Ql (U) Negative (10/19/22 9:18 AM) Normal Negative [facility] UA Auto SS WBC LM.HPF (Urine sed) [#/Area] 0-5 /HPF Normal 0-5/HPF [facility] UA Auto SS ALLIED HEALTHon 10-18-2022 ALLIED HEALTH HNO ID: [id number] Author: Karina Gonzales Tech Service: ? Author [...] PERIPHERAL IV DATA: Inpatient - refer to [facility] documentation RADIOLOGY DEPARTMENT: CT; Exam(s) Completed: Abdomen/Pelvis SIGNATURE: Tessa Griffin PATIENT NAME: Abbey Garcia DATE: October 18, 2022 TIME: 10:07 AM Normal [facility] CBC W Auto Differential pane l (Bld)on 10-18-2022 Basophils (Bld) [#/Vol] 0.03 10*3/uL Normal <0.11 [facility] Comment on above: Order Comment: Speci men Type: BLOOD SPECIMEN Ordering Facility: [facility] Address: [address] [place] [phone] Performed By: #### 5 7021-8 #### [facility] CLIA [id number] [address] Basophils/100 WBC (Bld) 0.8 % Normal [facility] Comment on above: Order Comment: Speci men Type: BLOOD SPECIMEN Ordering Facility: [facility] Address: [address] [address] Performed By: #### 5 7021-8 #### [facility] CLIA [id number] [address] Differential cell count method Nom (Bld) Auto Normal [facility] Comment on above: Order Comment: Speci men Type: BLOOD SPECIMEN Ordering Facility: [facility] Address: [address] [address] Performed By: #### 5 7021-8 #### [facility] CLIA [id number] [address] Eosinophils (Bld) [#/Vol] 0.14 10*3/uL Normal <0.46 [facility] Comment on above: Order Comment: Speci men Type: BLOOD SPECIMEN Ordering Facility: [facility] Address: [address] [place] [address] Performed By: #### 5 7021-8 #### [facility] CLIA [id number] [address] Eosinophils/100 WBC (Bld) 3.7 % Normal [facility] Comment on above: Order Comment: Speci men Type: BLOOD SPECIMEN Ordering Facility: [facility] Address: [address] [address] Performed By: #### 5 7021-8 #### [facility] CLIA [id number] [address] Erythrocyte distribution width (RBC) [Ratio] 12.7 % Normal 11.5-15.0 [facility] Comment on above: Order Comment: Speci men Type: BLOOD SPECIMEN Ordering Facility: [facility] Address: [address] [address] Performed By: #### 5 7021-8 #### [facility] CLIA [id number] [address] [place] Hematocrit (Bld) [Volume fraction] 38.5 % Normal 36.0-46.0 [facility] Comment on above: Order Comment: Speci men Type: BLOOD SPECIMEN Ordering Facility: [facility] Address: [address] [place] [address] Performed By: #### 5 7021-8 #### [facility] CLIA [id number] [address] [place] Hemoglobin (Bld) [Mass/Vol] 12.9 g/dL Normal 11.5-15.5 [facility] Comment on above: Order Comment: Speci men Type: BLOOD SPECIMEN Ordering Facility: [facility] Address: [address] [place] [address] Performed By: #### 5 7021-8 #### [facility] CLIA [id number] [address] [place] Immature granulocytes (Bld) [#/Vol] 10*3/uL Normal <0.10 [facility] Comment on above: Order Comment: Speci men Type: BLOOD SPECIMEN Ordering Facility: [facility] Address: [address] [place] [address] Performed By: #### 5 7021-8 #### [facility] CLIA [id number] [address] [place] Immature granulocytes/100 WBC (Bld) 0.3 % Normal [facility] Comment on above: Order Comment: Speci men Type: BLOOD SPECIMEN Ordering Facility: [facility] Address: [address] [place] [address] Performed By: #### 5 7021-8 #### [facility] CLIA [id number] [address] [place] Lymphocytes (Bld) [#/Vol] 1.66 10*3/uL Normal 1.00-4.00 [facility] Comment on above: Order Comment: Speci men Type: BLOOD SPECIMEN Ordering Facility: [facility] Address: [address] [address] Performed By: #### 5 7021-8 #### [facility] CLIA [id number] [address] Lymphocytes/100 WBC (Bld) 43.7 % Normal [facility] Comment on above: Order Comment: Speci men Type: BLOOD SPECIMEN Ordering Facility: [facility] Address: [address] [place] [address] Performed By: #### 5 7021-8 #### [facility] CLIA [id number] [address] MCH (RBC) [Entitic mass] 30.2 pg Normal 26.0-34.0 [facility] Comment on above: Order Comment: Speci men Type: BLOOD SPECIMEN Ordering Facility: [facility] Address: [address] [place] [address] Performed By: #### 5 7021-8 #### [facility] CLIA [id number] [address] MCHC (RBC) [Mass/Vol] 33.5 g/dL Normal 30.5-36.0 [facility] Comment on above: Order Comment: Speci men Type: BLOOD SPECIMEN Ordering Facility: [facility] Address: [address] [place] [address] Performed By: #### 5 7021-8 #### [facility] CLIA [id number] [address] MCV (RBC) [Entitic vol] 90.2 fL Normal 80.0-100.0 [facility] Comment on above: Order Comment: Speci men Type: BLOOD SPECIMEN Ordering Facility: [facility] Address: [address] [place] [address] Performed By: #### 5 7021-8 #### [facility] CLIA [id number] [address] Monocytes (Bld) [#/Vol] 0.28 10*3/uL Normal <0.87 [facility] Comment on above: Order Comment: Speci men Type: BLOOD SPECIMEN Ordering Facility: [facility] Address: [address] [place] [address] Performed By: #### 5 7021-8 #### [facility] CLIA [id number] [address] Monocytes/100 WBC (Bld) 7.4 % Normal [facility] Comment on above: Order Comment: Speci men Type: BLOOD SPECIMEN Ordering Facility: [facility] Address: [address] [address] Performed By: #### 5 7021-8 #### [facility] CLIA [id number] [address] [place] Neutrophils (Bld) [#/Vol] 1.68 10*3/uL Normal 1.45-7.50 [facility] Comment on above: Order Comment: Speci men Type: BLOOD SPECIMEN Ordering Facility: [facility] Address: [address] [address] Performed By: #### 5 7021-8 #### [facility] CLIA [id number] [address] Neutrophils/100 WBC (Bld) 44.1 % Normal [facility] Comment on above: Order Comment: Speci men Type: BLOOD SPECIMEN Ordering Facility: [facility] Address: [address] [address] Performed By: #### 5 7021-8 #### [facility] CLIA [id number] [address] [place] Nucleated RBC (Bld) [#/Vol] 10*3/uL Normal <0.01 [facility] Comment on above: Order Comment: Speci men Type: BLOOD SPECIMEN Ordering Facility: [facility] Address: [address] [address] Performed By: #### 5 7021-8 #### [facility] CLIA [id number] [address] Nucleated RBC/100 WBC (Bld) [Ratio] 0.0 /100 WBC Normal [facility] Comment on above: Order Comment: Speci men Type: BLOOD SPECIMEN Ordering Facility: [facility] Address: [address] [place] [address] Performed By: #### 5 7021-8 #### [facility] CLIA [id number] [address] [place] Platelet mean volume (Bld) [Entitic vol] 11.1 fL Normal 9.0-12.7 [facility] Comment on above: Order Comment: Speci men Type: BLOOD SPECIMEN Ordering Facility: [facility] Address: [address] [place] [address] Performed By: #### 5 7021-8 #### [facility] CLIA [id number] [address] Platelets (Bld) [#/Vol] 231 10*3/uL Normal 150-400 [facility] Comment on above: Order Comment: Speci men Type: BLOOD SPECIMEN Ordering Facility: [facility] Address: [address] [place] [address] Performed By: #### 5 7021-8 #### [facility] CLIA [id number] [address] [place] RBC (Bld) [#/Vol] 4.27 10*6/uL Normal 3.90-5.20 [facility] Comment on above: Order Comment: Speci men Type: BLOOD SPECIMEN Ordering Facility: [facility] Address: [address] [address] Performed By: #### 5 7021-8 #### [facility] CLIA [id number] [address] [place] WBC (Bld) [#/Vol] 3.80 10*3/uL Normal 3.70-11.00 [facility] Comment on above: Order Comment: Speci men Type: BLOOD SPECIMEN Ordering Facility: [facility] Address: [address] [place], [place] [address] Performed By: #### 5 7021-8 #### [facility] CLIA [id number] [address] [id number] [facility] CT ABD/PEL WO IVCONon 2022 CT ABD/PEL WO IVCON * * *Final Report* * * DATE OF EXAM: Oct 18 2022 10:07AM [facility] 0531 - CT ABD/PEL WO [...] Tissues: No acute abnormality. Lower thorax: Unremarkable. Ems Coordinator (topogram) images: No additional findings. IMPRESSION: Stable findings as detailed above. No acute intra-abdominal or pelvic process seen. Sock Liner: [email or web address] Transcribe Date/Time: Oct 18 2022 10:14A Dictated by : ADELA FISHER MD This examination was interpreted and the report reviewed and electronically signed by: ADELA FISHER MD on Oct 18 2022 10:21AM EST [id number] Normal [facility] Comprehensive metabolic 2000 panelon 10-18-2022 Albumin [Mass/Vol] 4.3 g/dL Normal 3.9-4.9 [facility] Comment on above: Order Comment: Speci men Type: BLOOD SPECIMEN Ordering Facility: [facility] Address: [address] [place] [address] Performed By: #### 2 4323-8, 3040-3 #### [facility] CLIA [id number] [address] ALP [Catalytic activity/Vol] 73 U/L Normal 34-123 [facility] Comment on above: Order Comment: Speci men Type: BLOOD SPECIMEN Ordering Facility: [facility] Address: [address] [place] [address] Performed By: #### 2 4323-8, 3040-3 #### [facility] CLIA [id number] [address] ALT With P-5'-P [Catalytic activity/Vol] 24 U/L Normal 7-38 [facility] Comment on above: Order Comment: Speci men Type: BLOOD SPECIMEN Ordering Facility: [facility] Address: [address] [place] [address] Performed By: #### 2 4323-8, 3040-3 #### [facility] CLIA [id number] [address] Anion gap [Moles/Vol] 8 mmol/L Low 9-18 [facility] Comment on above: Order Comment: Speci men Type: BLOOD SPECIMEN Ordering Facility: [facility] Address: [address] [place] [address] Performed By: #### 2 4323-8, 3040-3 #### [facility] CLIA [id number] [address] AST With P-5'-P [Catalytic activity/Vol] 36 U/L High 13-35 [facility] Comment on above: Order Comment: Speci men Type: BLOOD SPECIMEN Ordering Facility: [facility] Address: [address] [address] Performed By: #### 2 4323-8, 3040-3 #### [facility] CLIA [id number] [address] [place] Bilirubin [Mass/Vol] 0.4 mg/dL Normal 0.2-1.3 [facility] Comment on above: Order Comment: Speci men Type: BLOOD SPECIMEN Ordering Facility: [facility] Address: [address] [place] [address] Performed By: #### 2 4323-8, 3040-3 #### [facility] CLIA [id number] [address] [place] Calcium [Mass/Vol] 8.9 mg/dL Normal 8.5-10.2 [facility] Comment on above: Order Comment: Speci men Type: BLOOD SPECIMEN Ordering Facility: [facility] Address: [address] [place] [address] Performed By: #### 2 4323-8, 3040-3 #### [facility] CLIA [id number] [address] [place] Chloride [Moles/Vol] 108 mmol/L High 97-105 [facility] Comment on above: Order Comment: Speci men Type: BLOOD SPECIMEN Ordering Facility: [facility] Address: [address] [address] Performed By: #### 2 4323-8, 3040-3 #### [facility] CLIA [id number] [address] [place] CO2 [Moles/Vol] 26 mmol/L Normal 22-30 [facility] Comment on above: Order Comment: Speci men Type: BLOOD SPECIMEN Ordering Facility: [facility] Address: [address] [place] [address] Performed By: #### 2 4323-8, 3040-3 #### [facility] CLIA [id number] [address] [place] Creatinine [Mass/Vol] 0.81 mg/dL Normal 0.58-0.96 [facility] Comment on above: Order Comment: Geraldo marrero Type: BLOOD SPECIMEN Ordering Facility: [facility] Address: [address] [address] Performed By: #### 2 4323-8, 3040-3 #### [facility] CLIA [id number] [address] Creatinine and Glomerular filtration rate.predicted panel (S/P/Bld) 98 mL/min/1.73m??? Normal >=60 [facility] Comment on above: Order Comment: Geraldo marrero Type: BLOOD SPECIMEN Ordering Facility: [facility] Address: [address] [place] [address] Result Comment: Jessica mated Glomerular Filtration Rate [...] Performed By: #### 2 4323-8, 0-3 #### [facility] CLIA [id number] [address] [place] Glucose [Mass/Vol] 85 mg/dL Normal 74-99 [facility] Comment on above: Order Comment: Geraldo marrero Type: BLOOD SPECIMEN Ordering Facility: [facility] Address: [address] [place] [address] Result Comment: The [place] [employer] (ADA) provides guidance for cutoff [...] Standards of Medical Care in Diabetes 2016, [place] [employer]. Diabetes Care. 2016.39(Suppl 1). Performed By: #### 2 4323-8, 3040-3 #### [facility] CLIA [id number] [address] [place] Potassium [Moles/Vol] 4.3 mmol/L Normal 3.7-5.1 [facility] Comment on above: Order Comment: Speci men Type: BLOOD SPECIMEN Ordering Facility: [facility] Address: [address] [place] [address] Performed By: #### 2 43238, 0-3 #### [facility] CLIA [id number] [address] [place] Protein [Mass/Vol] 6.4 g/dL Normal 6.3-8.0 [facility] Comment on above: Order Comment: Speci men Type: BLOOD SPECIMEN Ordering Facility: [facility] Address: [address] [place] [address] Performed By: #### 2 4328, 0-3 #### [facility] CLIA [id number] [address] [place] Sodium [Moles/Vol] 142 mmol/L Normal 136-144 [facility] Comment on above: Order Comment: Speci men Type: BLOOD SPECIMEN Ordering Facility: [facility] Address: [address] [address] Performed By: #### 2 4323-8, 3040-3 #### [facility] CLIA [id number] [address] [place] Urea nitrogen [Mass/Vol] 8 mg/dL Normal 7-21 [facility] Comment on above: Order Comment: Speci men Type: BLOOD SPECIMEN Ordering Facility: [facility] Address: [address] [address] Performed By: #### 2 4323-8, 3040-3 #### [facility] CLIA [id number] [address] ED NOTEon 10-18-2022 ED NOTE HNO ID: [id number] Author: Serafin Curiel RN Service: ? Author Type: Registered Nurse Type: ED Notes Filed: 10/18/2022 10:46 AM Note Text: Provider previously at bedside discussing results/findings. Discharge instructions, follow up recommendations and medications reviewed with patient. Pt advised to return to ED with worsening symptoms. Pt verbalizes understanding. Stable and ambulatory upon d/c Normal [facility] ED NOTE HNO ID: [id number] Author: Alannah Carter RN Service: ? Author Type: Registered Nurse Type: ED Notes Filed: 10/18/2022 7:53 AM Note Text: Bed: 26-ED Expected date: Expected time: Means of arrival: Comments: TRIAGE Normal [facility] ED PROV NOTEon 10-18-2022 ED PROV NOTE HNO ID: [id number] Author: Alverto Barrett MD Service: Emergency Medicine [...] Musculoskeletal: Gen (more content not included)... Normal [facility] Lipase SerPl-cCncon 10-19-19 23 Lipase [Catalytic activity/Vol] 34 U/L Normal 16-61 [facility] Comment on above: Order Comment: Speci men Type: BLOOD SPECIMEN Ordering Facility: [facility] Address: [address] [address] Performed By: #### 2 4323-8, 3040-3 #### [facility] CLIA [id number] [address] Urinalysis complete panel (U )on 10-18-2022 Bilirubin Ql (U) Negative Normal Negative [facility] Comment on above: Order Comment: Speci men Type: URINE SPECIMEN Ordering Facility: [facility] Address: [address] [address] Performed By: #### 2 4356-8 #### [facility] CLIA [id number] [address] Clarity (Unsp spec) Clear Normal Clear [facility] Comment on above: Order Comment: Speci men Type: URINE SPECIMEN Ordering Facility: [facility] Address: [address] [place] [address] Performed By: #### 2 4356-8 #### [facility] CLIA [id number] [address] OF [facility] Color (U) Light Yellow Normal yellow [facility] Comment on above: Order Comment: Speci men Type: URINE SPECIMEN Ordering Facility: [facility] Address: [address] [place] [address] Performed By: #### 2 4356-8 #### [facility] CLIA [id number] [address] Epithelial cells LM.HPF (Urine sed) [#/Area] Few Normal [facility] Comment on above: Order Comment: Speci men Type: URINE SPECIMEN Ordering Facility: [facility] Address: [address] [place] [address] Performed By: #### 2 4356-8 #### [facility] CLIA [id number] [address] Glucose Test strip (U) [Mass/Vol] Negative Normal Trace, Negative [facility] Comment on above: Order Comment: Speci men Type: URINE SPECIMEN Ordering Facility: [facility] Address: [address] [place] [address] Performed By: #### 2 4356-8 #### [facility] CLIA [id number] [address] [place] Hemoglobin Ql (U) Negative Normal Negative, Trace [facility] Comment on above: Order Comment: Speci men Type: URINE SPECIMEN Ordering Facility: [facility] Address: [address] [place] [address] Performed By: #### 2 4356-8 #### [facility] CLIA [id number] [address] [place] Ketones Ql (U) Negative Normal Negative, Trace [facility] Comment on above: Order Comment: Speci men Type: URINE SPECIMEN Ordering Facility: [facility] Address: [address] [place] [address] Performed By: #### 2 4356-8 #### [facility] CLIA [id number] [address] Leukocyte esterase Test strip Ql (U) Negative Normal Negative, 25 Patito/uL [facility] Comment on above: Order Comment: Speci men Type: URINE SPECIMEN Ordering Facility: [facility] Address: [address] [place] [address] Performed By: #### 2 4356-8 #### [facility] CLIA [id number] [address] Nitrite Ql (U) Negative Normal Negative [facility] Comment on above: Order Comment: Speci men Type: URINE SPECIMEN Ordering Facility: [facility] Address: [address] [place] [address] Performed By: #### 2 4356-8 #### [facility] CLIA [id number] [address] pH (U) 7.5 [pH] Normal 5.0-8.0 [facility] Comment on above: Order Comment: Speci men Type: URINE SPECIMEN Ordering Facility: [facility] Address: [address] [place] [address] Performed By: #### 2 4356-8 #### [facility] CLIA [id number] [address] Protein (U) [Mass/Vol] Negative Normal Trace, Negative [facility] Comment on above: Order Comment: Speci men Type: URINE SPECIMEN Ordering Facility: [facility] Address: [address] [place] [address] Performed By: #### 2 4356-8 #### [facility] CLIA [id number] [address] RBC LM.HPF (Urine sed) [#/Area] 0-3 /HPF Normal 0-3 /HPF [facility] Comment on above: Order Comment: Speci men Type: URINE SPECIMEN Ordering Facility: [facility] Address: [address] [place] [address] Performed By: #### 2 4356-8 #### [facility] CLIA [id number] [address] [place] Specific gravity (U) [Rel density] 1.008 Normal 1.005-1.030 [facility] Comment on above: Order Comment: Speci men Type: URINE SPECIMEN Ordering Facility: [facility] Address: [address] [place] [address] Performed By: #### 2 6-8 #### [facility] CLIA [id number] [address] [place] [address] [place] Urobilinogen Ql (U) Normal Normal Negative [facility] Comment on above: Order Comment: Speci men Type: URINE SPECIMEN Ordering Facility: [facility] Address: [address] [place] [address] Performed By: #### 2 4356-8 #### [facility] CLIA [id number] [address] WBC LM.HPF (Urine sed) [#/Area] 0-5 /HPF Normal 0-5 /HPF [facility] Comment on above: Order Comment: Speci men Type: URINE SPECIMEN Ordering Facility: [facility] Address: [address] [place] [address] Performed By: #### 2 4356-8 #### [facility] CLIA [id number] [address] [place] Urinalysis w/ Microon 2022 Bilirubin, SemiQt,Ur Negative Normal NEG [facility] Comment on above: Performed By: #### U AMI #### [facility] [address] [place] [address] [employer]aghetti Machine Operator: Baldomero Espinoza MD Blood, Urine Negative Normal NEG [facility] Comment on above: Performed By: #### U AMIC #### [facility] [address] [place], [place] [address] [employer] Operator: Baldomero Espinoza MD Clarity (U) Clear Normal CLEAR [facility] Comment on above: Performed By: #### U AMIC #### [facility] [address] [place], [place] [address] [employer] Machine Operator: Baldomero Espinoza MD Color (U) Yellow Normal YEL [facility] Comment on above: Performed By: #### U AMIC #### [facility] [address] [place], [place] [address] [employer] Operator: Baldomero Espinoza MD Epithelial cells LM Ql (Urine sed) None Normal 0-25 [facility] Comment on above: Performed By: #### U AMIC #### [facility] [address] [place], [place] [address] [employer] Operator: Baldomero Espinoza MD Glucose Ql (U) Negative Normal NEG [facility] Comment on above: Performed By: #### U AMIC #### [facility] [address] [place] [address] [place] [address] [employer]aghetti Machine Operator: Baldomero Espinoza MD Ketones Ql (U) Negative Normal NEG [facility] Comment on above: Performed By: #### U AMIC #### [facility] [address] [place], [place] [address] [employer] Operator: Baldomero Espinoza MD Leukocyte esterase Test strip Ql (U) Negative Normal NEG [facility] Comment on above: Performed By: #### U AMIC #### [facility] [address] [place] [address] [employer] Machine Operator: Baldomero Espinoza MD Nitrite,Ur Negative Normal NEG [facility] Comment on above: Performed By: #### U AMIC #### [facility] [address] [place], [place] [address] [employer] Machine Operator: Baldomero Espinoza MD PH,Ur 6.5 Normal 5.0-9.0 [facility] Comment on above: Performed By: #### U AMIC #### [facility] [address] [place], [place] [address] [employer] Machine Operator: Baldomero Espinoza MD Protein Ql (U) Negative Normal NEG [facility] Comment on above: Performed By: #### U AMIC #### [facility] [address] [place] [address] [employer] Machine Operator: Baldomero Espinoza MD Spec. [place],Ur 1.020 Normal 1.010-1.020 [facility] Comment on above: Performed By: #### U AMIC #### [facility] [address] [place], [place] [address] [employer] Machine Operator: Baldomero Espinoza MD Urine RBC's None Normal 0-2 [facility] Comment on above: Performed By: #### U AMIC #### [facility] [address] [place] [address] [employer]ag[employer] Machine Operator: Baldomero Espinoza MD Urine WBC's None Normal 0-5 [facility] Comment on above: Performed By: #### U AMIC #### [facility] [address] [place], [facility] [employer] Operator: Baldomero Espinoza MD Urobilinogen,Ur Normal Normal 0.0-1.0 [facility] Comment on above: Performed By: #### U AMIC #### [facility] [address] [place] [facility]83 [employer] Machine Operator: Baldomero Espinoza MD C3 COMPLEMENT [facility] 06-13-19 23 Complement C3 [Mass/Vol] 140 mg/dL 86 - 166 mg/dL [facility] C4 COMPLEMENT [facility] 06-13-19 Complement C4 [Mass/Vol] 25 mg/dL 13 - 46 mg/dL [facility] CBC W Auto Differential pane l (Bld)on 06-12-2022 Basophils (Bld) [#/Vol] 0.04 10*3/uL <0.11 k/uL [facility] Basophils/100 WBC (Bld) 0.9 % [facility] Differential cell count method Nom (Bld) Auto [facility] Eosinophils (Bld) [#/Vol] 0.09 10*3/uL <0.46 k/uL [facility] Eosinophils/100 WBC (Bld) 2.0 % [facility] Erythrocyte distribution width (RBC) [Ratio] 12.8 % 11.5 - 15.0 % [facility] Hematocrit (Bld) [Volume fraction] 40.5 % 36.0 - 46.0 % [facility] Hemoglobin (Bld) [Mass/Vol] 13.4 g/dL 11.5 - 15.5 g/dL [facility] Immature granulocytes (Bld) [#/Vol] <0.10 k/uL [facility] Immature granulocytes/100 WBC (Bld) 0.2 % [facility] Lymphocytes (Bld) [#/Vol] 1.73 10*3/uL 1.00 - 4.00 k/uL [facility] Lymphocytes/100 WBC (Bld) 37.9 % [facility] MCH (RBC) [Entitic mass] 30.0 pg 26.0 - 34.0 pg [facility] MCHC (RBC) [Mass/Vol] 33.1 g/dL 30.5 - 36.0 g/dL [facility] MCV (RBC) [Entitic vol] 90.8 fL 80.0 - 100.0 fL [facility] Monocytes (Bld) [#/Vol] 0.23 10*3/uL <0.87 k/uL [facility] Monocytes/100 WBC (Bld) 5.0 % [facility] Neutrophils (Bld) [#/Vol] 2.46 10*3/uL 1.45 - 7.50 k/uL [facility] Neutrophils/100 WBC (Bld) 54.0 % [facility] Nucleated RBC (Bld) [#/Vol] <0.01 k/uL [facility] Nucleated RBC/100 WBC (Bld) [Ratio] 0.0 /100 WBC [facility] Platelet mean volume (Bld) [Entitic vol] 11.3 fL 9.0 - 12.7 fL [facility] Platelets (Bld) [#/Vol] 292 10*3/uL 150 - 400 k/uL [facility] RBC (Bld) [#/Vol] 4.46 10*6/uL 3.90 - 5.20 m/uL [facility] WBC (Bld) [#/Vol] 4.56 10*3/uL 3.70 - 11.00 k/u L [facility] CK CREATINE KINASEon 023 CK [Catalytic activity/Vol] 44 U/L 42 - 196 U/L [facility] Comprehensive metabolic 2000 panelon 06-12-2022 Albumin [Mass/Vol] 4.3 g/dL 3.9 - 4.9 g/dL [facility] ALP [Catalytic activity/Vol] 64 U/L 34 - 123 U/L [facility] ALT [Catalytic activity/Vol] 20 U/L 7 - 38 U/L [facility] Anion gap [Moles/Vol] 10 mmol/L 9 - 18 mmol/L [facility] AST [Catalytic activity/Vol] 33 U/L 13 - 35 U/L [facility] Bilirubin [Mass/Vol] 0.4 mg/dL 0.2 - 1.3 mg/dL [facility] Calcium [Mass/Vol] 9.3 mg/dL 8.5 - 10.2 mg/dL [facility] Chloride [Moles/Vol] 106 mmol/L High 97 - 105 mmol/L [facility] CO2 [Moles/Vol] 23 mmol/L 22 - 30 mmol/L [facility] Creatinine [Mass/Vol] 0.76 mg/dL 0.58 - 0.96 mg/dL [facility] Estimated Glomerular Filtration Rate 106 mL/min/1.73m >=60 mL/min/1.73m [facility] Glucose [Mass/Vol] 79 mg/dL 74 - 99 mg/dL [facility] Potassium [Moles/Vol] 4.0 mmol/L 3.7 - 5.1 mmol/L [facility] Protein [Mass/Vol] 6.9 g/dL 6.3 - 8.0 g/dL [facility] Sodium [Moles/Vol] 139 mmol/L 136 - 144 mmol/L [facility] Urea nitrogen [Mass/Vol] 9 mg/dL 7 - 21 mg/dL [facility] FERRITIN BLDon 06-12-2022 Ferritin [Mass/Vol] 36.6 ng/mL 14.7 - 205.1 ng/ mL [facility] FOLATE SERUMon 06-12-2022 Folate [Mass/Vol] 6.8 ng/mL >4.7 ng/mL [facility] Iron and Iron binding capaci ty panelon 06-12-2022 Iron [Mass/Vol] 100 ug/dL 41 - 186 ug/dL [facility] Iron binding capacity [Mass/Vol] 332 ug/dL 232 - 386 ug/dL [facility] Iron/TIBC [Molar ratio] 30.1 % 15.0 - 57.0 % [facility] MAGNESIUM BLDon 06-12-2022 Magnesium [Mass/Vol] 2.2 mg/dL 1.7 - 2.3 mg/dL [facility] RHEUMATOID FACTOR BLon 06-12 Rheumatoid factor Qn <16 IU/mL [facility] VITAMIN B12 BLOODon 06-13-19 Cobalamin (Vitamin B12) [Mass/Vol] 854 pg/mL 232 - 1,245 pg/mL [facility] CHEMISTRYOrdered By: SYSTEM SYSTEM on 06-10-2022 [...] Remisol CRP [Mass/Vol] 0.6 mg/dL Normal <=1.9mg/dL [facility] Remis ol GFR/1.73 sq M.predicted among non-blacks MDRD (S/P/Bld) [Vol rate/Area] 100 mL/min/1.73 m2 Normal >=59mL/min/1.73 m2 [facility] Chem S Glucose [Mass/Vol] 83 [...] 5.8 E9/L Normal 4.0 - 11.0 E9/L [facility] HemeAutoSS AMYLASEon 06-09-2022 Amylase [Catalytic activity/Vol] 41 U/L Normal 25-115 [facility] Comment on above: Performed By: #### G RUBIN, LIPID #### [facility] [address] [place] [address] Dr. Stephan Tavares CBC AUTO DIFFon 06-09-2022 BASO # 0.0 103/ul Normal 0.0-0.1 [facility] Comment on above: Performed By: #### G RUBIN, LIPID #### [facility] [address] [place] [address] Dr. Stephan Tavares Basophils/100 WBC (Bld) 0.7 % Normal 0.2-2.0 [facility] Comment on above: Performed By: #### G RUBIN, LIPID #### [facility] [address] [place] [address] Dr. Stephan Tavares EO # 0.1 103/ul Normal 0.0-0.7 [facility] Comment on above: Performed By: #### G RUBIN, LIPID #### [facility] [address] [place] [address] Dr. Stephan Tavares Eosinophils/100 WBC (Bld) 1.5 % Normal 0.9-7.0 [facility] Comment on above: Performed By: #### G RUBIN, LIPID #### [facility] [address] [place] [address] Dr. Stephan Tavares Erythrocyte distribution width (RBC) [Ratio] 13.1 % Normal 11.0-15.0 [facility] Comment on above: Performed By: #### G RUBIN, LIPID #### [facility] [address] [place] [address] Dr. Stephan Tavares Hematocrit (Bld) [Volume fraction] 43.2 % Normal 36.0-48.0 [facility] Comment on above: Performed By: #### G RUBIN, LIPID #### [facility] [address] [place] [address] Dr. Stephan Tavares Hemoglobin (Bld) [Mass/Vol] 14.6 g/dL Normal 12.0-16.0 [facility] Comment on above: Performed By: #### G RUBIN, LIPID #### [facility] [address] [place] [address] Dr. Stephan Tavares IG # 0.01 10e3/ul Normal 0.00-0.03 [facility] Comment on above: Performed By: #### G RUBIN, LIPID #### [facility] [address] [place] [address] Dr. Stephan Tavares IG % 0.2 % Normal 0.0-0.5 [facility] Comment on above: Performed By: #### G RUBIN, LIPID #### [facility] [address] [place] [address] Dr. Stephan Tavares LYMPH # 2.1 103/ul Normal 1.2-3.8 [facility] Comment on above: Performed By: #### G RUBIN, LIPID #### [facility] [address] [place] [address] Dr. Stephan Tavares Lymphocytes/100 WBC (Bld) 39.1 % Normal 20.5-60.0 [facility] Comment on above: Performed By: #### G RUBIN, LIPID #### [facility] [address] [place] [address] Dr. Stephan Tavares MANUAL DIFF REQ NO Normal [facility] Comment on above: Performed By: #### G RUBIN, LIPID #### [facility] [address] [place] [address] Dr. Stephan Tavares MCH (RBC) [Entitic mass] 30.2 pg Normal 26.7-34.0 [facility] Comment on above: Performed By: #### G RUBIN, LIPID #### [facility] [address] [place] [address] Dr. Stephan Tavares MCHC (RBC) [Mass/Vol] 33.8 g/dL Normal 29.9-35.2 [facility] Comment on above: Performed By: #### G RUBIN, LIPID #### [facility] [address] [place] [address] Dr. Stephan Tavares MCV (RBC) [Entitic vol] 89.3 fL Normal 81.0-99.0 [facility] Comment on above: Performed By: #### G RUBIN, LIPID #### [facility] [address] [place] [address] Dr. Stephan Tavares MONO # 0.3 103/ul Normal 0.3-0.8 [facility] Comment on above: Performed By: #### G RUBIN, LIPID #### [facility] [address] [place] [address] Dr. Stephan Tavares Monocytes/100 WBC (Bld) 5.2 % Normal 1.7-12.0 [facility] Comment on above: Performed By: #### G RUBIN, LIPID #### [facility] [address] [place] [address] Dr. Stephan Tavares NEUT # 2.9 103/ul Normal 1.4-6.5 [facility] Comment on above: Performed By: #### G RUBIN, LIPID #### [facility] [address] [place] [address] Dr. Stephan Tavares Neutrophils/100 WBC (Bld) 53.3 % Normal 43.0-75.0 [facility] Comment on above: Performed By: #### G RUBIN, LIPID #### [facility] [address] [place] [address] Dr. Stephan Tavares Platelet mean volume (Bld) [Entitic vol] 10.9 fL Normal 9.5-13.5 [facility] Comment on above: Performed By: #### G RUBIN, LIPID #### [facility] [address] [place] [address] Dr. Stephan Tavares PLT 271 103/ul Normal 150-450 [facility] Comment on above: Performed By: #### G RUBIN, LIPID #### [facility] [address] [place] [address] Dr. Stephan Tavares RBC 4.84 106/ul Normal 4.20-5.40 [facility] Comment on above: Performed By: #### G RUBIN, LIPID #### [facility] [address] [place] [address] Dr. Stephan Tavares WBC 5.4 103/ul Normal 4.0-11.0 [facility] Comment on above: Performed By: #### G RUBIN, LIPID #### [facility] [address] [place] [address] ABD/PELVIS WO CONon [...] ALVERTO PHAM Date: 2022-06-09 16:14 Normal [facility] ER URINE PROFILEon 3 Bilirubin Ql (U) Negative Normal NEGATIVE [facility] Comment on above: Performed By: #### G RUBIN, LIPID #### [facility] [address] [address] [address] Stephan Tavares Clarity (U) CLEAR Normal CLEAR [facility] Comment on above: Performed By: #### G RUBIN, LIPID #### [facility] [address] [address] [address] Stephan Tavares Color (U) LT. YELLOW Normal YELLOW [facility] Comment on above: Performed By: #### G RUBIN, LIPID #### [facility] [address] [place] [address] Dr. Stephan Tavares ERUAHD A micrscopic examination will be performed if indicated. Normal [facility] Comment on above: Performed By: #### G RUBIN, LIPID #### [facility] [address] [address] [address] Stephan Tavares Glucose Ql (U) Negative Normal NEGATIVE [facility] Comment on above: Performed By: #### G RUBIN, LIPID #### [facility] [address] [address] [address] Stephan Tavares Hemoglobin Ql (U) Negative Normal NEGATIVE [facility] Comment on above: Performed By: #### G RUBIN, LIPID #### [facility] [address] [address] [address] Stephan Tavares Ketones Ql (U) Negative Normal NEGATIVE [facility] Comment on above: Performed By: #### G RUBIN, LIPID #### [facility] [address] [address] [address] Stephan Tavares LEUKOCYTES Negative Normal NEGATIVE [facility] Comment on above: Performed By: #### G RUBIN, LIPID #### [facility] [address] [address] [address] Stephan Tavares Nitrite Ql (U) Negative Normal NEGATIVE [facility] Comment on above: Performed By: #### G RUBIN, LIPID #### [facility] [address] [address] [address] Stephan Tavares pH (U) 7.5 [pH] Normal 5-9 [facility] Comment on above: Performed By: #### G RUBIN, LIPID #### [facility] [address] [address] [address] Stephan Tavares SPEC GRAVITY 1.015 Normal 1.005-<=1.025 [facility] Comment on above: Performed By: #### G RUBIN, LIPID #### [facility] [address] [address] [address] Stephan Tavares UA PROTEIN Negative Normal NEGATIVE/ TRACE [facility] Comment on above: Performed By: #### G RUBIN, LIPID #### [facility] [address] [address] [address] Stephan Tavares UR MICRO IND NOT INDICATED Normal [facility] Comment on above: Performed By: #### G RUBIN, LIPID #### [facility] [address] [address] [address] Stephan Tavares Urobilinogen Qn (U) 0.2 {Munir'U}/dL Normal 0.2 - 1. 0 [facility] Comment on above: Performed By: #### G RUBIN, LIPID #### [facility] [address] [place] [address] Dr. Stephan Tavares LIPASEon 06-09-2022 Lipase [Catalytic activity/Vol] 120.0 U/L Normal 73.0-393.0 [facility] Comment on above: Performed By: #### G RUBIN, LIPID #### [facility] [address] [place] [address] Dr. Stephan Tavares PROF 14(COMP METB)on 023 Albumin [Mass/Vol] 4.4 g/dL Normal 3.4-5.0 [facility] Comment on above: Performed By: #### G RUBIN, LIPID #### [facility] [address] [place] [address] Dr. Stephan Tavares Albumin/Globulin [Mass ratio] 1.1 {ratio} Normal [facility] Comment on above: Performed By: #### G RUBIN, LIPID #### [facility] [address] [place] [address] Dr. Stephan Tavares ALP [Catalytic activity/Vol] 74 U/L Normal 46-116 [facility] Comment on above: Performed By: #### G RUBIN, LIPID #### [facility] [address] [place] [address] Dr. Stephan Tavares ALT [Catalytic activity/Vol] 40 U/L Normal 14-59 [facility] Comment on above: Performed By: #### G RUBIN, LIPID #### [facility] [address] [place] [address] Dr. Stephan Tavares Anion gap [Moles/Vol] 16.5 mmol/L Normal [facility] Comment on above: Performed By: #### G RUBIN, LIPID #### [facility] [address] [place] [address] Dr. Stephan Tavares AST [Catalytic activity/Vol] 45 U/L Critically high 15-37 [facility] Comment on above: Performed By: #### G RUBIN, LIPID #### [facility] [address] [address] [address] Stephan Tavares Bilirubin [Mass/Vol] 0.5 mg/dL Normal 0.2-1.0 [facility] Comment on above: Performed By: #### G RUBIN, LIPID #### [facility] [address] [address] [address] Stephan Tavares Calcium [Mass/Vol] 9.3 mg/dL Normal 8.5-10.1 [facility] Comment on above: Performed By: #### G RUBIN, LIPID #### [facility] [address] [address] [address] Stephan Tavares Chloride [Moles/Vol] 103 mmol/L Normal 98-107 [facility] Comment on above: Performed By: #### G RUBIN, LIPID #### [facility] [address] [address] [address] Stephan Tavares CO2 [Moles/Vol] 24.9 mmol/L Normal 21.0-32.0 [facility] Comment on above: Performed By: #### G RUBIN, LIPID #### [facility] [address] [address] [address] Stephan Tavares Creatinine [Mass/Vol] 0.88 mg/dL Normal 0.55-1.02 [facility] Comment on above: Performed By: #### G RUBIN, LIPID #### [facility] [address] [address] [address] Stephan Tavares EGFR-AF FILIPINO >60 Normal >=60 [facility] Comment on above: Performed By: #### G RUBIN, LIPID #### [facility] [address] [address] [address] Stephan Tavares EGFR-NON AF FILIPINO >60 Normal >=60 [facility] Comment on above: Performed By: #### G RUBIN, LIPID #### [facility] [address] [address] [address] Stephan Tavares Globulin (S) [Mass/Vol] 3.9 g/dL Normal [facility] Comment on above: Performed By: #### G RUBIN, LIPID #### [facility] [address] [address] [address] Stephan Tavares Glucose [Mass/Vol] 79 mg/dL Normal 74-106 [facility] Comment on above: Performed By: #### G RUBIN, LIPID #### [facility] [address] [address] [address] Stephan Tavares Potassium [Moles/Vol] 3.4 mmol/L Critically low 3.5-5.1 [facility] Comment on above: Performed By: #### G RUBIN, LIPID #### [facility] [address] [address] [address] Stephan Tavares Protein [Mass/Vol] 8.3 g/dL Critically high 6.4-8.2 [facility] Comment on above: Performed By: #### G RUBIN, LIPID #### [facility] [address] [address] [address] Stephan Tavares Sodium [Moles/Vol] 141 mmol/L Normal 136-145 [facility] Comment on above: Performed By: #### G RUBIN, LIPID #### [facility] [address] [address] [address] Stephan Tavares Urea nitrogen [Mass/Vol] 10.0 mg/dL Normal 7.0-18.0 [facility] Comment on above: Performed By: #### G RUBIN, LIPID #### [facility] [address] [address] [address] Stephan Tavares Urea nitrogen/Creatinine [Mass ratio] 11.4 mg/mg Normal [facility] Comment on above: Performed By: #### G RUBIN, LIPID #### [facility] [address] [address] [address] Stephan Tavares US PELVIS TRANSVAGon 023 [...] ALVERTO PHAM Date: 2022-06-09 17:04 Normal [facility] HLA B 27on 05-28-2022 HLA-B27 Negative Normal [facility] Comment on above: Result Comment: HLA- B*27 Negative B27 allele interpretation for all loci based on IMGT/HLA database version 3.44 This test was developed and its performance characteristics determined by [employer]. It has not been cleared or approved by the Food and Drug Administration. [facility] CLIA ID Number [id number] . This test was performed using PCR (Polymerase Chain Reaction)/SSOP (Sequence Specific Oligonucleotide Probes) technique. SBT (Sequence Based Typing) and/or SSP (Sequence Specific Primers) may be used as supplemental methods when necessary. Please contact [facility] Customer Service at if you have any questions. . Director of [facility] Laboratory Dr Tino Sampson, PhD Performed By: #### B MP, MG #### [facility] [address] [place] [address] Dr. Stephan Tavares LYME DISEASE, WESTERN BLOTon 05-27-2022 IgG P18 Ab. Absent Normal [facility] Comment on above: Performed By: #### B MP, MG #### [facility] [address] [place] [address] Dr. Stephan Tavares IgG P23 Ab. Absent [facility] Comment on above: Performed By: #### B MP, MG #### [facility] [address] [place] [address] Dr. Stephan Tavares IgG P28 Ab. Absent [facility] Comment on above: Performed By: #### B MP, MG #### [facility] [address] [place] [address] Dr. Stephan Tavares IgG P30 Ab. Absent [facility] Comment on above: Performed By: #### B MP, MG #### [facility] [address] [place] [address] Dr. Stephan Tavares IgG P39 Ab. Absent [facility] Comment on above: Performed By: #### B MP, MG #### [facility] [address] [place] [address] Dr. Stephan Tavares IgG P41 Ab. Present Abnormal [facility] Comment on above: Performed By: #### B MP, MG #### [facility] [address] [place] [address] Dr. Stephan Tavares IgG P45 Ab. Absent Normal [facility] Comment on above: Performed By: #### B MP, MG #### [facility] [address] [place] [address] Dr. Stephan Tavares IgG P58 Ab. Absent [facility] Comment on above: Performed By: #### B MP, MG #### [facility] [address] [place] [address] Dr. Stephan Tavares IgG P66 Ab. Absent Normal [facility] Comment on above: Performed By: #### B MP, MG #### [facility] [address] [place] [address] Dr. Stephan Tavares IgG P93 Ab. Absent [facility] Comment on above: Performed By: #### B MP, MG #### [facility] [address] [place] [address] Dr. Stephan Tavares IgM P23 Ab. Present Abnormal [facility] Comment on above: Performed By: #### B MP, MG #### [facility] [address] [place] [address] Dr. Stephan Tavares IgM P39 Ab. Absent [facility] Comment on above: Performed By: #### B MP, MG #### [facility] [address] [place] [address] Dr. Stephan Tavares IgM P41 Ab. Present Abnormal [facility] Comment on above: Performed By: #### B MP, MG #### [facility] [address] [place] [address] Dr. Stephan Tavares Lyme IgG WB Interp. Negative Normal [facility] Comment on above: Result Comment: Posi tive: 5 of the following Borrelia-specific bands: 18,23,28,30,39,41,45,58, 66, and 93. Negative: No bands or banding patterns which do not meet positive criteria. Performed By: #### B TOMMIE, MG #### [facility] [address] [address] [address] Stephan Tavares Lyme IgM WB Interp. Positive Abnormal [facility] Comment on above: Result Comment: Note : [...] are those recommended by CDC/ASTPHLD. p23=Osp C, o65=jenehhymm . Note: Sera from individuals with the following may cross react in the Lyme Line Blot assays: other spirochetal diseases (periodontal disease, leptospirosis, relapsing fever, yaws, and pinta); connective autoimmune (Rheumatoid Arthritis and Systemic Lupus Erythematosus and also individuals with Antinuclear Antibody); other infections (Greenleaf Spotted Fever; Prabhakar-Rangel Virus, and Cytomegalovirus). . . Please Note: Lyme immunoblot alone is not recommended for the diagnosis of Lyme disease. Current guidelines recommend the use of a two-tiered approach to Lyme serology testing to improve the sensitivity and specificity of testing. [facility] offers test code 191722 Lyme Disease Serology with Reflex to aid in the diagnosis of Lyme Disease. Performed By: #### B TOMMIE, MG #### [facility] [address], [place] [address] Dr. Stephan Tavares MISAEL EIA W/REFLEX 9 BIOMARKER Son 05-25-2022 MISAEL Direct Negative Normal Negative [facility] Comment on above: Performed By: #### A NARF9 #### [facility] [address] [place], [place] [address] Dr. Stephan Tavares SLE PROFILE Aon 05-25-2022 Anti-DNA (DS) Ab Qn 2 IU/mL Normal 0-9 [facility] Comment on above: Result Comment: Nega tive <5 Equivocal 5 - 9 Positive >9 Performed By: #### S RONALDO #### [facility] [address] [address] [address] Stephan Tavares Antichromatin Antibodies <0.2 Normal 0.0-0.9 [facility] Comment on above: Performed By: #### S RONALDO #### [facility] [address] [address] [address] Stephan Tavares RA Latex Turbid. <10.0 Normal <14.0 [facility] Comment on above: Performed By: #### S RONALDO #### [facility] [address] [address] [address] Stephan Tavares ABA THERAPIST Antibodies 0.3 AI Normal 0.0-0.9 [facility] Comment on above: Performed By: #### S RONALDO #### [facility] [address] [place] [address] Dr. Stephan Tavares Sjogren's Anti-SS-A <0.2 Normal 0.0-0.9 [facility] Comment on above: Performed By: #### S RONALDO #### [facility] [address] [place] [address] Dr. Stephan Tavares Sjogren's Anti-SS-B <0.2 Normal 0.0-0.9 [facility] Comment on above: Performed By: #### S RONALDO #### [facility] [address] [place] [address] Dr. Stephan Tavares Mc Antibodies <0.2 Normal 0.0-0.9 [facility] Comment on above: Performed By: #### S RONALDO #### [facility] [address] [address] [address] Stephan Tavares CBC AUTO DIFFon 05-22-2022 BASO # 0.0 103/ul Normal 0.0-0.1 [facility] Comment on above: Performed By: #### C BC #### [facility] [address] [place] [address] Dr. Stephan Tavares Basophils/100 WBC (Bld) 1.0 % Normal 0.2-2.0 [facility] Comment on above: Performed By: #### C BC #### [facility] [address] [place] [address] Dr. Stephan Tavares EO # 0.1 103/ul Normal 0.0-0.7 [facility] Comment on above: Performed By: #### C BC #### [facility] [address] [place] [address] Dr. Stephan Tavares Eosinophils/100 WBC (Bld) 1.3 % Normal 0.9-7.0 [facility] Comment on above: Performed By: #### C BC #### [facility] [address] [place] [address] Dr. Stephan Tavares Erythrocyte distribution width (RBC) [Ratio] 13.3 % Normal 11.0-15.0 [facility] Comment on above: Performed By: #### C BC #### [facility] [address] [place] [address] Dr. Stephan Tavares Hematocrit (Bld) [Volume fraction] 36.7 % Normal 36.0-48.0 [facility] Comment on above: Performed By: #### C BC #### [facility] [address] [place] [address] Dr. Stephan Tavares Hemoglobin (Bld) [Mass/Vol] 12.6 g/dL Normal 12.0-16.0 [facility] Comment on above: Performed By: #### C BC #### [facility] [address] [place] [address] Dr. Stephan Tavares IG # 0.00 10e3/ul Normal 0.00-0.03 [facility] Comment on above: Performed By: #### C BC #### [facility] [address] [place] [address] Dr. Stephan Tavares IG % 0.0 % Normal 0.0-0.5 [facility] Comment on above: Performed By: #### C BC #### [facility] [address] [place] [address] Dr. Stephan Tavares LYMPH # 1.2 103/ul Normal 1.2-3.8 [facility] Comment on above: Performed By: #### C BC #### [facility] [address] [place] [address] Dr. Stephan Tavares Lymphocytes/100 WBC (Bld) 30.9 % Normal 20.5-60.0 [facility] Comment on above: Performed By: #### C BC #### [facility] [address] [place] [address] Dr. Stephan Tavares MANUAL DIFF REQ NO Normal [facility] Comment on above: Performed By: #### C BC #### [facility] [address] [place] [address] Dr. Stephan Tavares MCH (RBC) [Entitic mass] 30.6 pg Normal 26.7-34.0 [facility] Comment on above: Performed By: #### C BC #### [facility] [address] [place] [address] Dr. Stephan Tavares MCHC (RBC) [Mass/Vol] 34.3 g/dL Normal 29.9-35.2 [facility] Comment on above: Performed By: #### C BC #### [facility] [address] [place] [address] Dr. Stephan Tavares MCV (RBC) [Entitic vol] 89.1 fL Normal 81.0-99.0 [facility] Comment on above: Performed By: #### C BC #### [facility] [address] [place] [address] Dr. Stephan Tavares MONO # 0.2 103/ul Critically low 0.3-0.8 [facility] Comment on above: Performed By: #### C BC #### [facility] [address] [place] [address] Dr. Stephan Tavares Monocytes/100 WBC (Bld) 5.9 % Normal 1.7-12.0 [facility] Comment on above: Performed By: #### C BC #### [facility] [address] [place] [address] Dr. Stephan Tavares NEUT # 2.4 103/ul Normal 1.4-6.5 [facility] Comment on above: Performed By: #### C BC #### [facility] [address] [address] [address] Stephan Tavares Neutrophils/100 WBC (Bld) 60.9 % Normal 43.0-75.0 [facility] Comment on above: Performed By: #### C BC #### [facility] [address] [address] [address] Stephan Tavares Platelet mean volume (Bld) [Entitic vol] 10.9 fL Normal 9.5-13.5 [facility] Comment on above: Performed By: #### C BC #### [facility] [address] [address] [address] Stephan Tavares PLT 250 103/ul Normal 150-450 [facility] Comment on above: Performed By: #### C BC #### [facility] [address] [place] [address] Dr. Stephan Tavares RBC 4.12 106/ul Critically low 4.20-5.40 [facility] Comment on above: Performed By: #### C BC #### [facility] [address] [address] [address] Stephan Tavares WBC 3.9 103/ul Critically low 4.0-11.0 [facility] Comment on above: Performed By: #### C BC #### [facility] [address] [place] [address] Dr. Stephan Tavares CRPon 05-22-2022 CRP [Mass/Vol] mg/L Normal <=1.0 [facility] Comment on above: Performed By: #### G RUBIN, LIPID #### [facility] [address] [place] [address] Dr. Stephan Tavares SED RATE WESTERGRENon 2022 SED RATE 4 mm/hr Normal <=20 [facility] Comment on above: Performed By: #### S EDR #### [facility] [address] [place] [address] Dr. Stephan Tavares URIC ACID SERUMon 05-22-2022 Urate [Mass/Vol] 4.5 mg/dL Normal 2.6-6.0 [facility] Comment on above: Performed By: #### G RUBIN, LIPID #### [facility] [address] [place] [address] Dr. Stephan Tavares EGD - THERAPEUTIC, EUS, OR T UBE INTERVENTIONSon 03-06-2022 [facility] US PELVIS AND TRANSVAGon US PELVIS [...] BALDOMERO MARCELO Date: 2022-03-03 16:24 Normal [facility] CBC AUTO DIFFon 02-17-2022 BASO # 0.0 103/ul Normal 0.0-0.1 [facility] Comment on above: Performed By: #### G RUBIN, LIPID #### [facility] [address] [place] [address] Dr. Stephan Tavares Basophils/100 WBC (Bld) 0.8 % Normal 0.2-2.0 [facility] Comment on above: Performed By: #### G RUBIN, LIPID #### [facility] [address] [place] [address] Dr. Stephan Tavares EO # 0.1 103/ul Normal 0.0-0.7 [facility] Comment on above: Performed By: #### G RUBIN, LIPID #### [facility] [address] [place] [address] Dr. Stephan Tavares Eosinophils/100 WBC (Bld) 2.0 % Normal 0.9-7.0 [facility] Comment on above: Performed By: #### G RUBIN, LIPID #### [facility] [address] [place] [address] Dr. Stephan Tavares Erythrocyte distribution width (RBC) [Ratio] 13.2 % Normal 11.0-15.0 [facility] Comment on above: Performed By: #### G RUBIN, LIPID #### [facility] [address] [place] [address] Dr. Stephan Tavares Hematocrit (Bld) [Volume fraction] 36.2 % Normal 36.0-48.0 [facility] Comment on above: Performed By: #### G RUBIN, LIPID #### [facility] [address] [place] [address] Dr. Stephan Tavares Hemoglobin (Bld) [Mass/Vol] 12.6 g/dL Normal 12.0-16.0 [facility] Comment on above: Performed By: #### G RUBIN, LIPID #### [facility] [address] [place] [address] Dr. Stephan Tavares IG # 0.00 10e3/ul Normal 0.00-0.03 [facility] Comment on above: Performed By: #### G RUBIN, LIPID #### [facility] [address] [place] [address] Dr. Stephan Tavares IG % 0.0 % Normal 0.0-0.5 [facility] Comment on above: Performed By: #### G RUBIN, LIPID #### [facility] [address] [place] [address] Dr. Stephan Tavares LYMPH # 2.3 103/ul Normal 1.2-3.8 [facility] Comment on above: Performed By: #### G RUBIN, LIPID #### [facility] [address] [place] [address] Dr. Stephan Tavares Lymphocytes/100 WBC (Bld) 46.3 % Normal 20.5-60.0 [facility] Comment on above: Performed By: #### G RUBIN, LIPID #### [facility] [address] [place] [address] Dr. Stephan Tavares MANUAL DIFF REQ NO Normal [facility] Comment on above: Performed By: #### G RUBIN, LIPID #### [facility] [address] [place] [address] Dr. Stephan Tavares MCH (RBC) [Entitic mass] 29.2 pg Normal 26.7-34.0 [facility] Comment on above: Performed By: #### G RUBIN, LIPID #### [facility] [address] [address] [address] Stephan Tavares MCHC (RBC) [Mass/Vol] 34.8 g/dL Normal 29.9-35.2 [facility] Comment on above: Performed By: #### G RUBIN, LIPID #### [facility] [address] [address] [address] Stephan Tavares MCV (RBC) [Entitic vol] 84.0 fL Normal 81.0-99.0 [facility] Comment on above: Performed By: #### G RUBIN, LIPID #### [facility] [address] [address] [address] Stephan Tavares MONO # 0.4 103/ul Normal 0.3-0.8 [facility] Comment on above: Performed By: #### G RUBIN, LIPID #### [facility] [address] [place] [address] Dr. Stephan Tavares Monocytes/100 WBC (Bld) 8.7 % Normal 1.7-12.0 [facility] Comment on above: Performed By: #### G RUBIN, LIPID #### [facility] [address] [place] [address] Dr. Stephan Tavares NEUT # 2.1 103/ul Normal 1.4-6.5 [facility] Comment on above: Performed By: #### G RUBIN, LIPID #### [facility] [address] [place] [address] Dr. Stephan Tavares Neutrophils/100 WBC (Bld) 42.2 % Critically low 43.0-75.0 [facility] Comment on above: Performed By: #### G RUBIN, LIPID #### [facility] [address] [address] [address] Stephan Tavares Platelet mean volume (Bld) [Entitic vol] 11.1 fL Normal 9.5-13.5 [facility] Comment on above: Performed By: #### G RUBIN, LIPID #### [facility] [address] [address] [address] Stephan Tavares PLT 228 103/ul Normal 150-450 [facility] Comment on above: Performed By: #### G RUBIN, LIPID #### [facility] [address] [place] [address] Dr. Stephan Tavares RBC 4.31 106/ul Normal 4.20-5.40 [facility] Comment on above: Performed By: #### G RUBIN, LIPID #### [facility] [address] [place] [address] Dr. Stephan Tavares WBC 5.1 103/ul Normal 4.0-11.0 [facility] Comment on above: Performed By: #### G RUBIN, LIPID #### [facility] [address] [place] [address] Dr. Stephan Tavares MAGNESIUMon 02-17-2022 Magnesium [Mass/Vol] 1.8 mg/dL Normal 1.8-2.4 [facility] Comment on above: Performed By: #### B MP, MG #### [facility] [address] [place] [address] Dr. Stephan Tavares PROF CHEM 8 (BAS METB)on Anion gap [Moles/Vol] 16.1 mmol/L Normal [facility] Comment on above: Performed By: #### B MP, MG #### [facility] [address] [place] [address] Dr. Stephan Tavares Calcium [Mass/Vol] 8.7 mg/dL Normal 8.5-10.1 [facility] Comment on above: Performed By: #### B MP, MG #### [facility] [address] [place] [address] Dr. Stephan Tavares Chloride [Moles/Vol] 104 mmol/L Normal 98-107 [facility] Comment on above: Performed By: #### B MP, MG #### [facility] [address] [place] [address] Dr. Stephan Tavares CO2 [Moles/Vol] 22.0 mmol/L Normal 21.0-32.0 [facility] Comment on above: Performed By: #### B MP, MG #### [facility] [address] [place] [address] Dr. Stephan Tavares Creatinine [Mass/Vol] 0.74 mg/dL Normal 0.55-1.02 [facility] Comment on above: Performed By: #### B MP, MG #### [facility] [address] [place] [address] Dr. Stephan Tavares EGFR-AF FILIPINO >60 Normal >=60 [facility] Comment on above: Performed By: #### B MP, MG #### [facility] [address] [address] [address] Stephan Tavares EGFR-NON AF FILIPINO >60 Normal >=60 [facility] Comment on above: Performed By: #### B MP, MG #### [facility] [address] [place] [address] Dr. Stephan Tavares Glucose [Mass/Vol] 88 mg/dL Normal 74-106 [facility] Comment on above: Performed By: #### B MP, MG #### [facility] [address] [place] [address] Dr. Stephan Tavares Potassium [Moles/Vol] 4.1 mmol/L Normal 3.5-5.1 [facility] Comment on above: Result Comment: spec imen hemolysed. result could be spurious. suggest repeat. Performed By: #### B MP, MG #### [facility] [address] [place] [address] Dr. Stephan Tavares Sodium [Moles/Vol] 138 mmol/L Normal 136-145 [facility] Comment on above: Performed By: #### B MP, MG #### [facility] [address] [place] [address] Dr. Stephan Tavares Urea nitrogen [Mass/Vol] 12.0 mg/dL Normal 7.0-18.0 [facility] Comment on above: Performed By: #### B MP, MG #### [facility] [address] [place] [address] Dr. Stephan Tavares Urea nitrogen/Creatinine [Mass ratio] 16.2 mg/mg Normal [facility] Comment on above: Performed By: #### B MP, MG #### [facility] [address] [place] [address] Dr. Stephan Tavares Basic metabolic 2000 panelon 01-28-2022 Anion gap [Moles/Vol] 10 mmol/L 9 - 18 mmol/L [facility] Calcium [Mass/Vol] 9.3 mg/dL 8.5 - 10.2 mg/dL [facility] Chloride [Moles/Vol] 105 mmol/L 97 - 105 mmol/L [facility] CO2 [Moles/Vol] 22 mmol/L 22 - 30 mmol/L [facility] Creatinine [Mass/Vol] 0.68 mg/dL 0.58 - 0.96 mg/dL [facility] Estimated Glomerular Filtration Rate 119 mL/min/1.73m >=60 mL/min/1.73m [facility] Glucose [Mass/Vol] 77 mg/dL 74 - 99 mg/dL [facility] Potassium [Moles/Vol] 4.3 mmol/L 3.7 - 5.1 mmol/L [facility] Sodium [Moles/Vol] 137 mmol/L 136 - 144 mmol/L [facility] Urea nitrogen [Mass/Vol] 9 mg/dL 7 - 21 mg/dL [facility] CBC panel Auto (Bld)on 01-28 Erythrocyte distribution width (RBC) [Ratio] 13.3 % 11.5 - 15.0 % [facility] Hematocrit (Bld) [Volume fraction] 42.9 % 36.0 - 46.0 % [facility] Hemoglobin (Bld) [Mass/Vol] 14.6 g/dL 11.5 - 15.5 g/dL [facility] MCH (RBC) [Entitic mass] 29.8 pg 26.0 - 34.0 pg [facility] MCHC (RBC) [Mass/Vol] 34.0 g/dL 30.5 - 36.0 g/dL [facility] MCV (RBC) [Entitic vol] 87.6 fL 80.0 - 100.0 fL [facility] Nucleated RBC (Bld) [#/Vol] <0.01 k/uL [facility] Platelet mean volume (Bld) [Entitic vol] 11.4 fL 9.0 - 12.7 fL [facility] Platelets (Bld) [#/Vol] 247 10*3/uL 150 - 400 k/uL [facility] RBC (Bld) [#/Vol] 4.90 10*6/uL 3.90 - 5.20 m/uL [facility] WBC (Bld) [#/Vol] 4.05 10*3/uL 3.70 - 11.00 k/u L [facility] EKGon 01-28-2022 Atrial Rate 61 BPM [facility] Calculated P Novi 76 degrees [facility] Calculated R Novi 73 degrees [facility] Calculated T Novi 57 degrees [facility] P-R Interval 144 ms [facility] QRS Duration 86 ms [facility] QT Interval 424 ms [facility] QTC Calculation (Bazett) 426 ms [facility] Ventricular Rate 61 BPM [facility] TYPE AND SCREEN,30 DAYon ABO O [facility] HIstorical Ab Scr Status Negative [facility] Rh Nom (Bld) Positive [facility] EGD - THERAPEUTIC, EUS, OR T UBE INTERVENTIONSon 12-25-2021 [facility] METANEPHRINES PLASMA FREEon 11-01-2021 Metanephrine, Pl <10.0 Normal 0.0-88.0 [facility] Comment on above: Performed By: #### G RUBIN, LIPID #### [facility] [address] [address] [address] Stephan Tavares Normetanephrine, Pl 19.4 pg/mL Normal 0.0-210.1 [facility] Comment on above: Performed By: #### G RUBIN, LIPID #### [facility] [address] [address] [address] Stephan Tavares CORTISOLon 10-28-2021 Cortisol 4.6 ug/dL Normal [facility] Comment on above: Result Comment: Wesley isol AM 6.2 - 19.4 Cortisol PM 2.3 - 11.9 Performed By: #### C ORTISO #### [facility] [address] [address] [address] Stephan Tavares CBC AUTO DIFFon 10-27-2021 BASO # 0.0 103/ul Normal 0.0-0.1 [facility] Comment on above: Performed By: #### G RUBIN, LIPID #### [facility] [address] [address] [address] Stephan Tavares Basophils/100 WBC (Bld) 0.5 % Normal 0.2-2.0 [facility] Comment on above: Performed By: #### G RUBIN, LIPID #### [facility] [address] [place] [address] Dr. Stephan Tavares EO # 0.0 103/ul Normal 0.0-0.7 [facility] Comment on above: Performed By: #### G RUBIN, LIPID #### [facility] [address] [place] [address] Dr. Stephan Tavares Eosinophils/100 WBC (Bld) 0.5 % Critically low 0.9-7.0 [facility] Comment on above: Performed By: #### G RUBIN, LIPID #### [facility] [address] [place] [address] Dr. Stephan Tavares Erythrocyte distribution width (RBC) [Ratio] 12.8 % Normal 11.0-15.0 [facility] Comment on above: Performed By: #### G RUBIN, LIPID #### [facility] [address] [place] [address] Dr. Stephan Tavares Hematocrit (Bld) [Volume fraction] 37.5 % Normal 36.0-48.0 [facility] Comment on above: Performed By: #### G RUBIN, LIPID #### [facility] [address] [place] [address] Dr. Stephan Tavares Hemoglobin (Bld) [Mass/Vol] 12.9 g/dL Normal 12.0-16.0 [facility] Comment on above: Performed By: #### G RUBIN, LIPID #### [facility] [address] [place] [address] Dr. Stephan Tavares IG # 0.01 10e3/ul Normal 0.00-0.03 [facility] Comment on above: Performed By: #### G RUBIN, LIPID #### [facility] [address] [place] [address] Dr. Stephan Tavares IG % 0.2 % Normal 0.0-0.5 [facility] Comment on above: Performed By: #### G RUBIN, LIPID #### [facility] [address] [place] [address] Dr. Stephan Tavares LYMPH # 1.9 103/ul Normal 1.2-3.8 [facility] Comment on above: Performed By: #### G RUBIN, LIPID #### [facility] [address] [place] [address] Dr. Stephan Tavares Lymphocytes/100 WBC (Bld) 34.6 % Normal 20.5-60.0 [facility] Comment on above: Performed By: #### G RUBIN, LIPID #### [facility] [address] [place] [address] Dr. Stephan Tavares MANUAL DIFF REQ NO Normal [facility] Comment on above: Performed By: #### G RUBIN, LIPID #### [facility] [address] [place] [address] Dr. Stephan Tavares MCH (RBC) [Entitic mass] 30.3 pg Normal 26.7-34.0 [facility] Comment on above: Performed By: #### G RUBIN, LIPID #### [facility] [address] [place] [address] Dr. Stephan Tavares MCHC (RBC) [Mass/Vol] 34.4 g/dL Normal 29.9-35.2 [facility] Comment on above: Performed By: #### G RUBIN, LIPID #### [facility] [address] [place] [address] Dr. Stephan Tavares MCV (RBC) [Entitic vol] 88.0 fL Normal 81.0-99.0 [facility] Comment on above: Performed By: #### G RUBIN, LIPID #### [facility] [address] [place] [address] Dr. Stephan Tavares MONO # 0.4 103/ul Normal 0.3-0.8 [facility] Comment on above: Performed By: #### G RUBIN, LIPID #### [facility] [address] [place] [address] Dr. Stephan Tavares Monocytes/100 WBC (Bld) 6.6 % Normal 1.7-12.0 [facility] Comment on above: Performed By: #### G RUBIN, LIPID #### [facility] [address] [place] [address] Dr. Stephan Tavares NEUT # 3.2 103/ul Normal 1.4-6.5 [facility] Comment on above: Performed By: #### G RUBIN, LIPID #### [facility] [address] [address] [address] Stephan Tavares Neutrophils/100 WBC (Bld) 57.6 % Normal 43.0-75.0 [facility] Comment on above: Performed By: #### G RUBIN, LIPID #### [facility] [address] [address] [address] Stephan Tavares Platelet mean volume (Bld) [Entitic vol] 10.6 fL Normal 9.5-13.5 [facility] Comment on above: Performed By: #### G RUBIN, LIPID #### [facility] [address] [address] [address] Stephan Tavares PLT 249 103/ul Normal 150-450 [facility] Comment on above: Performed By: #### G RUBIN, LIPID #### [facility] [address] [address] [address] Stephan Tavares RBC 4.26 106/ul Normal 4.20-5.40 [facility] Comment on above: Performed By: #### G RUBIN, LIPID #### [facility] [address] [address] [address] Stephan Tavares WBC 5.6 103/ul Normal 4.0-11.0 [facility] Comment on above: Performed By: #### G RUBIN, LIPID #### [facility] [address] [address] [address] Stephan Tavares FREE T3on 10-27-2021 FREE T3 3.25 pg/mlL Normal 2.18-3.98 [facility] Comment on above: Performed By: #### G RUBIN, LIPID #### [facility] [address] [address] [address] Stephan Tavares FREE T4on 10-27-2021 Free T4 [Mass/Vol] 1.45 ng/dL Normal 0.76-1.46 [facility] Comment on above: Performed By: #### G RUBIN, LIPID #### [facility] [address] [place] [address] Dr. Stephan Tavares PROF CHEM 8 (BAS METB)on Anion gap [Moles/Vol] 13.1 mmol/L Normal [facility] Comment on above: Performed By: #### T SH, FT3, BMP #### [facility] [address] [place] [address] Dr. Stephan Tavares Calcium [Mass/Vol] 8.7 mg/dL Normal 8.5-10.1 [facility] Comment on above: Performed By: #### T SH, FT3, BMP #### [facility] [address] [place] [address] Dr. Stephan Tavares Chloride [Moles/Vol] 104 mmol/L Normal 98-107 [facility] Comment on above: Performed By: #### T SH, FT3, BMP #### [facility] [address] [place] [address] Dr. Stephan Tavares CO2 [Moles/Vol] 25.3 mmol/L Normal 21.0-32.0 [facility] Comment on above: Performed By: #### T SH, FT3, BMP #### [facility] [address] [place] [address] Dr. Stephan Tavares Creatinine [Mass/Vol] 0.69 mg/dL Normal 0.55-1.02 [facility] Comment on above: Performed By: #### T SH, FT3, BMP #### [facility] [address] [place] [address] Dr. Stephan Tavaers EGFR-AF FILIPINO >60 Normal >=60 [facility] Comment on above: Performed By: #### T SH, FT3, BMP #### [facility] [address] [place] [address] Dr. Stephan Tavares EGFR-NON AF FILIPINO >60 Normal >=60 [facility] Comment on above: Performed By: #### T SH, FT3, BMP #### [facility] [address] [place] [address] Dr. Stephan Tavares Glucose [Mass/Vol] 87 mg/dL Normal 74-106 [facility] Comment on above: Performed By: #### T SH, FT3, BMP #### [facility] [address] [place] [address] Dr. Stephan Tavares Potassium [Moles/Vol] 3.4 mmol/L Critically low 3.5-5.1 [facility] Comment on above: Performed By: #### T SH, FT3, BMP #### [facility] [address] [place] [address] Dr. Stephan Tavares Sodium [Moles/Vol] 139 mmol/L Normal 136-145 [facility] Comment on above: Performed By: #### T SH, FT3, BMP #### [facility] [address] [place] [address] Dr. Stephan Tavares Urea nitrogen [Mass/Vol] 9.0 mg/dL Normal 7.0-18.0 [facility] Comment on above: Performed By: #### T SH, FT3, BMP #### [facility] [address] [place] [address] Dr. Stephan Tavares Urea nitrogen/Creatinine [Mass ratio] 13.0 mg/mg Normal [facility] Comment on above: Performed By: #### T JENI, FT3, BMP #### [facility] [address] [place] [address] Dr. Stephan Tavares TSHon 10-27-2021 TSH Qn m[IU]/L Critically low 0.358-3.740 [facility] Comment on above: Performed By: #### G RUBIN, LIPID #### [facility] [address] [place] [address] SINUSES WO CONon [...] by: ALVERTO PHAM Date: 2021-10-06 06:19 Normal [facility] Dental Nerve Blockon 022 Pablo Atwood DO 08/30/2021 4:20 AM Dental Nerve Block Date/Time: 08/30/2021 4:19 AM Performed by: Pablo Atwood DO Authorized by: Pablo Atwood DO Consent: Consent obtained: Verbal Consent given by: Patient Risks, benefits, and alternatives were discussed: yes [place] protocol: Patient identity confirmed: Verbally with patient Indications: Indications: dental pain Location: Block type: Posterior superior alveolar Laterality: Left Procedure details: Syringe type: Controlled syringe Needle gauge: 27 G Anesthetic injected: Bupivacaine 0.5% WITH epi Post-procedure details: Outcome: Anesthesia achieved Procedure completion: Tolerated well, no immediate complications [facility] Work Phone: [facility] [employer] Phone: GLUCOSE BLOODon 08-21-2021 Glucose [Mass/Vol] 79 mg/dL Normal 74-106 [facility] Comment on above: Performed By: #### G RUBIN, LIPID #### [facility] [address] [place] [address] Dr. Stephan Tavares LIPID PROFILEon 08-21-2021 CHOL-HDL RATIO NORM SEE BELOW Normal [facility] Comment on above: Result Comment: 3.3 - 4.4 LOW RISK 4.4 - 7.1 AVERAGE RISK 7.1 - 11.0 MODERATE RISK >11.0 HIGH RISK Performed By: #### G RUBIN, LIPID #### [facility] [address] [address] [address] Stephan Tavares Cholesterol [Mass/Vol] 163 mg/dL Normal <=200 [facility] Comment on above: Performed By: #### G RUBIN, LIPID #### [facility] [address] [address] [address] Stephan Tavares Cholesterol in HDL [Mass/Vol] 71 mg/dL Critically high 40-60 [facility] Comment on above: Performed By: #### G RUBIN, LIPID #### [facility] [address] [place] [address] Dr. Stephan Tavares Cholesterol in LDL [Mass/Vol] 67.8 mg/dL Normal [facility] Comment on above: Performed By: #### G RUBIN, LIPID #### [facility] [address] [address] [address] Stephan Tavares Cholesterol.total/C holesterol in HDL [Mass ratio] 2.3 {ratio} Normal [facility] Comment on above: Performed By: #### G RUBIN, LIPID #### [facility] [address] [address] [address] Stephan Tavares HDL NORMAL > or = 60 mg/dl - LOW CARDIOVASCULAR RISK <40 mg/dl - HIGH CARDIOVASCULAR RISK Normal [facility] Comment on above: Performed By: #### G RUBIN, LIPID #### [facility] [address] [address] [address] Stephan Tavares LDL CALC NORMAL SEE BELOW Normal [facility] Comment on above: Result Comment: <100 mg/dl OPTIMAL 100 - 129 mg/dl NEAR OR ABOVE OPTIMAL 130 - 159 mg/dl BORDERLINE HIGH 160 - 189 mg/dl HIGH >190 mg/dl VERY HIGH Performed By: #### G RUBIN, LIPID #### [facility] [address] [address] [address] Stephan Tavares Triglyceride [Mass/Vol] 121 mg/dL Normal <=150 [facility] Comment on above: Performed By: #### G RUBIN, LIPID #### [facility] [address] [place], [place] [address] Dr. Stephan Tavares VLDL CALC 24.2 mg/dL Normal [facility] Comment on above: Performed By: #### G RUBIN, LIPID #### [facility] [address] [place], [place] [address] Dr. Stephan Tavares US SINGLE QUAD RT [...] by: ALVERTO PHAM Date: 2021-08-21 17:24 Normal [facility] XR SINUSES 3 VIEWS OR GREATE Dandre [...] by: ALVERTO PHAM Date: 2021-08-20 13:05 Normal [facility] Glucose - FINGER STICKon Glucose [Mass/Vol] 84 mg/dL [employer] Other VAGINITIS/VAGINOSIS DNA PROB Ryder 08-01-2021 Alea species Positive Abnormal Negative [facility] Comment on above: Performed By: #### G RUBIN, LIPID #### [facility] [address] [address] [address] Stephan Tavares Gardnerella vaginalis Negative Normal Negative [facility] Comment on above: Performed By: #### G RUBIN, LIPID #### [facility] [address] [address] [address] Stephan Tavares Trichomonas vaginalis Negative Normal Negative [facility] Comment on above: Performed By: #### G RUBIN, LIPID #### [facility] [address] [address] [address] Stephan Tavares APTTon 07-27-2021 aPTT Coag (Bld) [Time] 30.9 s [facility] Comment on above: IV Heparin Therapy Range: 62.0-94.0 CBC with Auto Differentialon 07-27-2021 Absolute Eos # 0.06 [facility] Absolute Immature Granulocyte <0.03 [facility] Absolute Lymph # 1.49 [facility] Absolute Bracken # 0.27 [facility] Basophils (Bld) [#/Vol] 0.04 10*3/uL [facility] Basophils/100 WBC (Bld) 1 % 0 - 2 % [facility] Eosinophils/100 WBC (Bld) 1 % 1 - 4 % [facility] Hematocrit (Bld) [Volume fraction] 38.8 % 36.3 - 47.1 % [facility] Hemoglobin (Bld) [Mass/Vol] 12.7 g/dL 11.9 - 15.1 g/dL [facility] Immature granulocytes/100 WBC (Bld) 0 % 0 [facility] Interpretation and review of laboratory results Abnormal [facility] Lymphocytes/100 WBC (Bld) 36 % 24 - 43 % [facility] MCH (RBC) [Entitic mass] 28.9 pg 25.2 - 33.5 pg [facility] MCHC (RBC) [Mass/Vol] 32.7 g/dL 28.4 - 34.8 g/dL [facility] MCV (RBC) [Entitic vol] 88.4 fL 82.6 - 102.9 fL [facility] Monocytes/100 WBC (Bld) 6 % 3 - 12 % [facility] NRBC Automated 0.0 0.0 per 100 WBC [facility] S [facility] Platelet distribution width (Bld) [Ratio] 14.5 % High 11.8 - 14.4 % [facility] Platelet mean volume (Bld) [Entitic vol] 10.8 fL 8.1 - 13.5 fL [facility] Platelets (Bld) [#/Vol] 251 10*3/uL [facility] RBC (Bld) [#/Vol] 4.39 10*6/uL 3.95 - 5.11 m/uL [facility] Segmented neutrophils/100 WBC (Bld) 56 % 36 - 65 % [facility] Segs Absolute 2.33 [facility] WBC (Bld) [#/Vol] 4.2 10*3/uL [facility] SE [facility] CT ABDOMEN PELVIS W IV CONTR AST Additional Contrast? Noneon 07-27-2021 No acute abdominal or pelvic abnormality. [facility] RIS CONSOLIDATED EXAMINATION: CT OF THE ABDOMEN [...] unremarkable. There is no acute osseous abnormality. [facility] RIS Devon Joseph MD - 07/27/2021 EXAMINATION: [...] IMPRESSION: No acute abdominal or pelvic abnormality. [employer] Phone: Radiology Study observation (narrative) [employer] Phone: CT ABDOMEN PELVIS W IV CONTR AST Additional Contrast? NoneOrdered By: Devon Moura on 07-27-2021 [employer] Phone: Comprehensive Metabolic Pane l w/ Reflex to MGon 07-27-2021 Albumin [Mass/Vol] 4.7 g/dL 3.5 - 5.2 g/dL [facility] Albumin/Globulin [Mass ratio] 1.8 {ratio} [facility] ALP (Bld) [Catalytic activity/Vol] 62 U/L 35 - 104 U/L [facility] ALT [Catalytic activity/Vol] 14 U/L 5 - 33 U/L [facility] Anion gap [Moles/Vol] 11 mmol/L 9 - 17 mmol/L [facility] AST [Catalytic activity/Vol] 18 U/L <32 [facility] Bilirubin [Mass/Vol] 0.52 mg/dL 0.3 - 1.2 mg/dL [facility] Calcium [Mass/Vol] 9.5 mg/dL 8.6 - 10.4 mg/dL [facility] Chloride [Moles/Vol] 101 mmol/L 98 - 107 mmol/L [facility] CO2 [Moles/Vol] 25 mmol/L 20 - 31 mmol/L [facility] Creatinine [Mass/Vol] 0.76 mg/dL 0.50 - 0.90 mg/dL [facility] Free PSA/Total PSA [Mass fraction] 7.3 g/dL 6.4 - 8.3 g/dL [facility] GFR >60 >60 mL/min [facility] GFR Non- >60 >60 mL/min [facility] Glucose [Mass/Vol] 86 mg/dL 70 - 99 mg/dL [facility] Interpretation and review of laboratory results Abnormal [facility] Potassium [Moles/Vol] 4.0 mmol/L 3.7 - 5.3 mmol/L [facility] Sodium [Moles/Vol] 137 mmol/L 135 - 144 mmol/L [facility] Urea nitrogen (BldV) [Mass/Vol] 16 mg/dL 6 - 20 mg/dL [facility] Urea nitrogen/Creatinine (Bld) [Mass ratio] 21 High [facility] Laboratory - Chemistry and C hemistry - challengeon 07-27-2021 GFR/1.73 sq M.predicted MDRD (S/P/Bld) [Vol rate/Area] [facility] Comment on above: Average GFR for 30-3 9 years old: 107 mL/min/1.73sq m Chronic Kidney Disease: <60 mL/min/1.73sq m Kidney failure: <15 mL/min/1.73sq m eGFR calculated using average adult body mass. Additional eGFR calculator available at: http://www.Oodle/multiple_crcl_2012.htm Stage 1: Some kidney damage normal GFR Stage 2: Mild kidney damage GFR 60-89 Stage 3: Moderate kidney damage GFR 30-59 Stage 4: Severe kidney damage GFR 15-29 Stage 5: Severe kidney damage GFR <15 ESRD - chronic treatment by dialysis or transplant Lactic Acidon 07-27-2021 Lactate [Moles/Vol] 1 mmol/L 0.5 - 2.2 mmol/L [facility] Lipaseon 07-27-2021 Lipase [Catalytic activity/Vol] 49 U/L 13 - 60 U/L [facility] Microscopic Urinalysison - [facility] Epithelial Cells UA 0 TO 2 [facility] RBC, UA 0 TO 2 [facility] WBC, UA 0 TO 2 [facility] No Panel Informationon 07-27 [facility] Protime-INRon 07-27-2021 INR Coag (Bld) [Relative time] 1.1 {INR} [facility] Comment on above: Non-therapeutic Range: INR = 0.9-1.2 Therapeutic Range: Moderate Anticoagulant Intensity: INR = 2.0-3.0 High Anticoagulant Intensity: INR = 2.5-3.5 PT Coag (PPP) [Time] 14.2 s [facility] Urinalysis with Reflex to Cu ltureon 07-27-2021 Bilirubin Urine Negative NEGATIVE [facility] [place] Color, UA Yellow Yellow [facility] Glucose, Ur Negative NEGATIVE [facility] Ketones Ql (U) Negative NEGATIVE [facility] Leukocyte esterase Test strip Ql (U) Negative NEGATIVE [facility] Nitrite, Urine Negative NEGATIVE [facility] pH, UA 7.5 [facility] Protein, UA Negative NEGATIVE [facility] Specific [place], UA 1.010 [facility] Turbidity UA Clear Clear [facility] Urine Hgb Negative NEGATIVE [facility] Urobilinogen, Urine Normal Normal [facility] XR CHEST PORTABLEon 07-28-19 No acute process. [facility] EXAMINATION: ONE XRAY VIEW OF [...] The osseous structures are without acute process. [facility] Goldie Grande MD - 07/27/2021 [...] without acute process. IMPRESSION: No acute process. [facility] [place] Work Phone: Radiology Study observation (narrative) [facility] [place] Work Phone: XR CHEST PORTABLEOrdered By: Goldie Grande on 07-27-2021 [facility] [employer] [place] Work Phone: XR HIP GENERAL 3V PELV/AP/LA T RIGHTon 06-18-2021 [facility] XR chest 2V*on 03-31-2021 XR chest 2V* [facility] [employer] ([email or web address]) Other XR chest 2V* [facility] [place] [employer] Other XR chest 2V* [address] [facility] [employer] Other XR chest 2V* BrendaRUT [address] [facility] [employer] Other XR chest 2V* XRay Report [employer] Other XR chest 2V* Signed [employer] Other XR chest 2V* Patient: Abbey Garcia MR#: [id number] [place] [employer] Other XR chest 2V* : 1990 Acct:[id number] [employer] Other XR chest 2V* Age/Sex: 30 / F ADM Date: 03/31/21 [employer] Other XR chest 2V* Loc: XDCLY Room: Type: [facility] [employer] Other XR chest 2V* [facility] [employer] Other XR chest 2V* Ordering Provider[facility] [employer] Other XR chest 2V* Date of Service: 03/31/21 [employer] Other XR chest 2V* XR/XR chest 2V*: SOB (shortness of breath) [employer] Other XR chest 2V* Copies to: [facility]ANNA [facility]E [facility] [employer] Other XR chest 2V* PA AND LATERAL CHEST: [employer] Other XR chest 2V* CLINICAL HISTORY: Wheezing and shortness of breath [employer] Other XR chest 2V* COMPARISON: 03/05/2020 [employer] Other XR chest 2V* There is no focal parenchymal consolidation, effusion or pneumothorax. The cardiac, hilar and [employer] Other XR chest 2V* mediastinal silhouettes are within normal limits. There is no vascular congestion. The [employer] Other XR chest 2V* visualized bony thorax is intact. [employer] Other XR chest 2V* XR/XR chest 2V* [employer] Other XR chest 2V* IMPRESSION: [employer] Other XR chest 2V* NO ACUTE CARDIOPULMONARY ABNORMALITY. [employer] Other XR chest 2V* Impression dictated by: Maricruz Hutchinson M.D.03/31/2021 11:32 AM [employer] Other XR chest 2V* Dictation Location: RADIO-PC-10 [employer] Other XR chest 2V* Transcribed By: SULEMA 03/31/21 [facility] [employer] Other XR chest 2V* Dictated By: Maricruz Hutchinson MD 03/31/21 [facility] [employer] Other XR chest 2V* Signed By: [employer] Other XR chest 2V* 03/31/21 1132 [employer] Other Urinalysis - AUTOMATEDon Appearance (U) clear [employer] Other Bilirubin Ql (U) Negative [employer] Other Color (U) yellow [employer] Other Glucose Ql (U) Negative [employer] Other Hemoglobin Ql (U) Negative [employer] Other Ketones Ql (U) Negative [employer] Other Leukocyte esterase Test strip Ql (U) Negative [employer] Other Nitrite Ql (U) Negative [employer] Other pH (U) 7.0 [pH] [employer] Other Protein Ql (U) Negative [employer] Other Specific gravity (U) [Rel density] 1.015 [employer] Other Urobilinogen (U) [Mass/Vol] 0.2 mg/dL [employer] Other XR FINGER RIGHT (MIN 2 VIEWS )Ordered By: Vicky Olmedo on 12-14-2020 No acute osseous abnormality. [employer] Phone: EXAMINATION: THREE XRAY VIEWS OF THE RIGHT FINGERS 12/14/2020 3:26 pm COMPARISON: None. HISTORY: ORDERING SYSTEM PROVIDED HISTORY: shut right thumb in car door TECHNOLOGIST PROVIDED HISTORY: shut right thumb in car door FINDINGS: There is no evidence of acute fracture. There is normal alignment. No acute joint abnormality. No focal osseous lesion. No focal soft tissue abnormality. [employer] Phone: Yusuf, Mhpn Incoming Radiant Results From [facility] - 12/14/2020 3:33 PM EDT EXAMINATION: THREE [...] tissue abnormality. IMPRESSION: No acute osseous abnormality. [employer] Phone: [employer] Phone: CBC, EDIF, PLATELETOrdered B y: Juanito Laird on 07-02-2020 ABSOLUTE BASOPHIL COUNT 0.0 10*3/uL 0.0 - 0.2 10*3/uL [facility] Basophils/100 WBC (Bld) 0.6 % 0.0 - 2.0 % [facility] Differential cell count method Nom (Bld) AUTO DIFF % [facility] Eosinophils (Bld) [#/Vol] 0.10 10*3/uL 0.0 - 0.7 10*3/uL [facility] Eosinophils/100 WBC (Bld) 1.3 % 0.0 - 11.0 % [facility] Erythrocyte distribution width (RBC) [Ratio] 14.1 % 11.5 - 14.5 % [facility] Hematocrit (Bld) [Volume fraction] 36.2 % 36.0 - 48.0 % [facility] Hemoglobin (Bld) [Mass/Vol] 12.1 g/dL [facility] Lymphocytes (Bld) [#/Vol] 1.70 10*3/uL 1.2 - 3.4 10*3/uL [facility] Lymphocytes/100 WBC (Bld) 23.4 % 20.0 - 55.0 % [facility] MCH (RBC) [Entitic mass] 28.1 pg 26.0 - 35.0 PG [facility] MCHC (RBC) [Mass/Vol] 33.4 g/dL [facility] MCV (RBC) [Entitic vol] 84.1 fL [facility] Monocytes (Bld) [#/Vol] 0.5 10*3/uL 0.0 - 0.7 10*3/uL [facility] Monocytes/100 WBC (Bld) 6.4 % 0.0 - 10.0 % [facility] Neutrophils (Bld) [#/Vol] 5.0 10*3/uL 1.4 - 6.5 10*3/uL [facility] Neutrophils/100 WBC (Bld) 68.3 % 37.0 - 75.0 % [facility] Platelet mean volume (Bld) [Entitic vol] 8.9 fL [facility] Platelets (Bld) [#/Vol] 295 10*3/uL 130.0 - 400.0 10*3/uL [facility] RBC (Bld) [#/Vol] 4.31 10*6/uL 4.0 - 5.4 10*6/u L [facility] WBC (Bld) [#/Vol] 7.3 10*3/uL 3.6 - 11.0 10*3/u L [facility] COMPREHENSIVE METABOLIC PANE LOrdered By: Juanito Laird on 07-02-2020 Albumin [Mass/Vol] 4.1 G/dl 3.5 - 5.0 G/dl [facility] Albumin/Globulin [Mass ratio] 1.3 {ratio} [facility] ALP [Catalytic activity/Vol] 52 U/L [facility] ALT [Catalytic activity/Vol] 16 U/L [facility] AST [Catalytic activity/Vol] 29 U/L [facility] Bilirubin [Mass/Vol] 0.5 mg/dL [facility] Calcium [Mass/Vol] 9.2 mg/dL [facility] Chloride [Moles/Vol] 102 mmol/L [facility] CO2 [Moles/Vol] 22 mmol/L [facility] Creatinine [Mass/Vol] 0.59 mg/dL [facility] GFR COMMENT Average GFR for 30-39 years old = 109. [facility] Comment on above: Chronic Kidney disea se, GFR = <60. Kidney failure, GFR = <15. The GFR estimate is not adjusted for extreme body surface area or acute process, nor has it been validated for women or ethnic groups other than and . GFR/1.73 sq M.predicted among blacks MDRD (S/P/Bld) [Vol rate/Area] mL/min/{1.73_m2} ml/min/1.73sq.m [facility] GFR/1.73 sq M.predicted among non-blacks MDRD (S/P/Bld) [Vol rate/Area] mL/min/{1.73_m2} ml/min/1.73sq.m [facility] Glucose post fast [Mass/Vol] 84 mg/dL [facility] Comment on above: NORMAL <100 mg/dL PREDIABETES 101-126 mg/dL DIABETES 126 mg/dL or higher Interpretation and review of laboratory results Abnormal [facility] Potassium [Moles/Vol] 4.1 mmol/L [facility] Protein [Mass/Vol] 7.3 g/dL [facility] Sodium [Moles/Vol] 134 mmol/L [facility] Urea nitrogen [Mass/Vol] 15 mg/dL [facility] CT ABDOMEN/PELVIS WITHOUT CO NTRASTOrdered By: Juanito Laird on 07-02-2020 IMPRESSION: CT abdomen and CT pelvis studies demonstrate findings compatible with hepatic cysts as described, similar to prior study. Finding is compatible with complex right adnexal cyst as noted. Correlate for mild gastroenteritis. [facility] EXAMINATION: CT ABDOMEN/PELVIS WITHOUT CONTRAST HISTORY: Abdominal [...] bowel content. Bony structures are grossly intact. [facility] User, Interfaces - 07/02/2020 2:22 PM EDT [...] cyst as noted. Correlate for mild gastroenteritis. [facility] HCG ( test) Ql (U)O rdered By: Vaughn Ceja on 07-02-2020 [facility] HCG QUALITATIVE, URINEOrdere d By: Vaughn Ceja on 07-02-2020 HCG ( test) Ql (U) Negative NEGATIVE [facility] LACTATE, BLOODOrdered By: Catherine Laird on 07-02-2020 Lactate [Moles/Vol] 1.0 mmol/L [facility] LIPASEOrdered By: Juanito rosen on 07-02-2020 Lipase [Catalytic activity/Vol] 32 U/L 23 - 300 U/L [facility] No Panel InformationOrdered By: Juanito Laird on 07-02-2020 [facility] PROTIME-INROrdered By: Gautam Laird on 07-02-2020 INR Coag (PPP) [Relative time] 0.95 {INR} [facility] Comment on above: 2.0-3.0 THERAPEUTIC RANGE 2.5-3.5 MECHANICAL VALVE RANGE PT Coag (PPP) [Time] 12.9 s [facility] TYPE AND SCREEN - POSSIBLE T RANSFUSIONOrdered By: Juanito Laird on 07-02-2020 ABO and Rh group Nom (Bld ) Positive [facility] ARM BAND NUMBER [id number] [facility] Blood group antibody screen Ql Negative [facility] EXPIRATION DATE 07/05/2020,2359 [facility] URINALYSIS, MACROOrdered By: Vaughn Ceja on 07-02-2020 Bilirubin Ql (U) Negative NEGATIVE [facility] Clarity (U) SLIGHTLY CLOUDY Abnormal CLEAR [facility] Color (U) PINK Abnormal YELLOW [facility] Glucose Test strip (U) [Mass/Vol] Negative NEGATIVE mg/dl [facility] Hemoglobin Ql (U) LARGE Abnormal NEGATIVE [facility] Interpretation and review of laboratory results Abnormal [facility] Ketones (U) [Mass/Vol] Negative NEGATIVE mg/dl [facility] Leukocyte esterase Test strip Ql (U) TRACE Abnormal NEGATIVE [facility] Nitrite Ql (U) Negative NEGATIVE [facility] pH (U) 5.5 [pH] [facility] Protein Ql (U) 100 mg/dl Abnormal NEGATIVE [facility] Specific gravity (U) [Rel density] <1.005 Low [facility] Urobilinogen (U) [Mass/Vol] 0.2 mg/dL [facility] URINE MICROSCOPICOrdered By: Vaughn Ceja on 07-02-2020 Bacteria LM.HPF (Urine sed) [#/Area] TRACE Abnormal NEGATIVE [facility] Casts LM.LPF (Urine sed) [#/Area] NONE NONE /LPF [facility] Crystals LM Nom (Urine sed) NONE NONE [facility] Epithelial cells LM Ql (Urine sed) 10 TO 20 /HPF [facility] Interpretation and review of laboratory results Abnormal [facility] Mucus Ql (Urine sed) Negative NEGATIVE [facility] RBC LM.HPF (Urine sed) [#/Area] TOO NUMEROUS TO COUNT Abnormal NEGATIVE /HPF [facility] Urine sediment comments LM John (Urine sed) POSSIBLY CONTAMINATED SPECIMEN, CULTURE MUST BE ORDERED SEPARATELY IF DEEMED NECESSARY. [facility] WBC LM.HPF (Urine sed) [#/Area] 1 TO 5 NEGATIVE /HPF [facility] US PELVIC WITH TRANSVAGINAL WITH DOPPLEROrdered By: Juanito Laird on 07-02-2020 IMPRESSION: 5.5 cm septated right ovarian cyst No evidence of right ovarian torsion Nonvisualization of the left ovary 4.1 cm myometrial masses, leiomyoma suspected [facility] EXAM: US PELVIC WITH TRANSVAGINAL WITH [...] to patient body habitus and bowel gas [facility] User, Interfaces - 07/02/2020 4:10 PM [...] ovary 4.1 cm myometrial masses, leiomyoma suspected [facility] CBC, EDIF, PLATELETon 2019 ABSOLUTE BASOPHIL COUNT 0.0 10*3/uL 0 - 0.2 10*3/uL [facility] Basophils/100 WBC (Bld) 0.6 % 0 - 2 % [facility] Differential cell count method Nom (Bld) AUTO DIFF % [facility] Eosinophils (Bld) [#/Vol] 0.10 10*3/uL 0 - 0.7 10*3/uL [facility] Eosinophils/100 WBC (Bld) 2.4 % 0 - 11 % [facility] Erythrocyte distribution width (RBC) [Ratio] 15.2 % High 11.5 - 14.5 % [facility] Hematocrit (Bld) [Volume fraction] 39.4 % 36 - 48 % [facility] Hemoglobin (Bld) [Mass/Vol] 12.7 g/dL [facility] Interpretation and review of laboratory results Abnormal [facility] Lymphocytes (Bld) [#/Vol] 1.50 10*3/uL 1.2 - 3.4 10*3/uL [facility] Lymphocytes/100 WBC (Bld) 25.8 % 20 - 55 % [facility] MCH (RBC) [Entitic mass] 28.3 pg 26 - 35 PG [facility] MCHC (RBC) [Mass/Vol] 32.3 g/dL [facility] MCV (RBC) [Entitic vol] 87.6 fL [facility] Monocytes (Bld) [#/Vol] 0.3 10*3/uL 0 - 0.7 10*3/uL [facility] Monocytes/100 WBC (Bld) 5.6 % 0 - 10 % [facility] Neutrophils (Bld) [#/Vol] 3.7 10*3/uL 1.4 - 6.5 10*3/uL [facility] Neutrophils/100 WBC (Bld) 65.6 % 37 - 75 % [facility] Platelet mean volume (Bld) [Entitic vol] 9.2 fL [facility] Platelets (Bld) [#/Vol] 277 10*3/uL 130 - 400 10*3/uL [facility] RBC (Bld) [#/Vol] 4.50 10*6/uL 4 - 5.4 10*6/uL [facility] WBC (Bld) [#/Vol] 5.7 10*3/uL 3.6 - 11 10*3/uL [facility] CHEM 7 (LYTES,BUN,CREA,GLUC) on 01-30-2020 Chloride [Moles/Vol] 106 mmol/L [facility] CO2 [Moles/Vol] 20 mmol/L Low [facility] Creatinine [Mass/Vol] 0.67 mg/dL [facility] GFR/1.73 sq M predicted among blacks MDRD (S/P/Bld) [Vol rate/Area] mL/min/{1.73_m2} ml/min/1.73sq.m [facility] GFR/1.73 sq M predicted among non-blacks MDRD (S/P/Bld) [Vol rate/Area] mL/min/{1.73_m2} ml/min/1.73sq.m [facility] GFR/1.73 sq M predicted among non-blacks MDRD (S/P/Bld) [Vol rate/Area] Average GFR for 30-39 years old = 109. [facility] Comment on above: Chronic Kidney disea se, GFR = <60. Kidney failure, GFR = <15. The GFR estimate is not adjusted for extreme body surface area or acute process, nor has it been validated for women or ethnic groups other than and . Glucose post fast [Mass/Vol] 78 mg/dL [facility] Comment on above: NORMAL <100 mg/dL PREDIABETES 101-126 mg/dL DIABETES 126 mg/dL or higher Interpretation and review of laboratory results Abnormal [facility] Potassium [Moles/Vol] 3.8 mmol/L [facility] Sodium [Moles/Vol] 138 mmol/L [facility] Urea nitrogen [Mass/Vol] 8 mg/dL [facility] CT ABDOMEN/PELVIS WITH CONTR Daljit 01-30-2020 [...] unchanged. 4. Prior cholecystectomy and appendectomy. 2 [facility] EXAMINATION: CT ABDOMEN/PELVIS WITH CONTRAST HISTORY: [...] osseous lesions. No compression fracture is identified. [facility] IMPRESSION: 1. Scattered fluid throughout nondilated small bowel may correlate with enteritis or mild ileus pattern. No bowel obstruction. 2. Left ovarian cyst measures 4.7 cm. Pelvic ultrasound could be considered, if clinical symptoms warrant. 3. Hepatic cysts, unchanged. 4. Prior cholecystectomy and appendectomy. 2 [facility] HCG QUALITATIVE, URINEon HCG ( test) Ql (U) Negative NEGATIVE [facility] HEPATIC FUNCTION PANELon Albumin [Mass/Vol] 4.6 g/dL [facility] ALP [Catalytic activity/Vol] 52 U/L [facility] ALT [Catalytic activity/Vol] 18 U/L [facility] AST [Catalytic activity/Vol] 31 U/L [facility] Bilirubin [Mass/Vol] 0.5 mg/dL [facility] Bilirubin.direct [Mass/Vol] 0.0 mg/dL [facility] Protein [Mass/Vol] 7.7 g/dL [facility] LIPASEon 01-30-2020 Lipase [Catalytic activity/Vol] 33 U/L 23 - 300 U/L [facility] URINALYSIS, MACROon 01-30-20 20 Bilirubin Ql (U) Negative NEGATIVE [facility] Clarity (U) CLEAR CLEAR [facility] Color (U) YELLOW YELLOW [facility] Glucose Test strip (U) [Mass/Vol] Negative NEGATIVE mg/dl [facility] Hemoglobin Ql (U) Negative NEGATIVE [facility] Interpretation and review of laboratory results Abnormal [facility] Ketones (U) [Mass/Vol] Negative NEGATIVE mg/dl [facility] Leukocyte esterase Test strip Ql (U) Negative NEGATIVE [facility] Nitrite Ql (U) Negative NEGATIVE [facility] pH (U) 7.5 [pH] High [facility] Protein Ql (U) Negative NEGATIVE mg/dl [facility] Specific gravity (U) [Rel density] 1.015 [facility] Urobilinogen (U) [Mass/Vol] 0.2 [facility] Vital Signs Date Time Vital Sign Value Performing Clinician Facility 11-04-2023 14:05-0400 Diastolic blood pressure 78 mm[Hg] [facility] 11-04-2023 14:05-0400 Heart rate 98 /min [facility] 11-04-2023 14:05-0400 Mean blood pressure 96 mm[Hg] [facility] 11-04-2023 14:05-0400 Respiratory rate 14 /min [facility] 11-04-2023 14:05-0400 SaO2% (BldA) [Mass fraction] 100 % [facility] 11-04-2023 14:05-0400 Systolic blood pressure 133 mm[Hg] [facility] 11-04-2023 13:40-0400 Diastolic blood pressure 95 mm[Hg] [facility] 11-04-2023 13:40-0400 Heart rate 100 /min [facility] 11-04-2023 13:40-0400 Mean blood pressure 113 mm[Hg] [facility] 11-04-2023 13:40-0400 Respiratory rate 18 /min [facility] 11-04-2023 13:40-0400 SaO2% (BldA) [Mass fraction] 100 % [facility] 11-04-2023 13:40-0400 Systolic blood pressure 148 mm[Hg] [facility] 11-04-2023 13:10-0400 Diastolic blood pressure 84 mm[Hg] [facility] 11-04-2023 13:10-0400 Heart rate 101 /min [facility] 11-04-2023 13:10-0400 Mean blood pressure 102 mm[Hg] [facility] 11-04-2023 13:10-0400 Respiratory rate 15 /min [facility] 11-04-2023 13:10-0400 SaO2% (BldA) [Mass fraction] 100 % [facility] 11-04-2023 13:10-0400 Systolic blood pressure 139 mm[Hg] [facility] 11-04-2023 10:42-0400 Body temperature 98.06 [degF] [facility] 11-04-2023 10:42-0400 Heart rate 92 /min [facility] 11-04-2023 10:42-0400 Respiratory rate 20 /min [facility] 11-01-2023 09:00-0400 Diastolic blood pressure 81 mm[Hg] Chichi Miller MD Work Phone: [facility] 11-01-2023 09:00-0400 Heart rate 70 /min Chicih Miller MD Work Phone: [facility] 11-01-2023 09:00-0400 Respiratory rate 16 /min Chichi Miller MD Work Phone: [facility] 11-01-2023 09:00-0400 SaO2% (BldA) [Mass fraction] 100 % Chichi Miller MD Work Phone: [facility] 11-01-2023 09:00-0400 Systolic blood pressure 128 mm[Hg] Chichi Miller MD Work Phone: [facility] 11-01-2023 08:27-0400 Body temperature 96.8 [degF] Chichi Miller MD Work Phone: [facility] 11-01-2023 07:51-0400 Body height 167.6 cm Chichi Miller MD Work Phone: [facility] 11-01-2023 07:51-0400 Body mass index (BMI) [Ratio] 29.86 kg/m2 Chichi Miller MD Work Phone: [facility] 11-01-2023 07:51-0400 Body weight 83.92 kg Chichi Miller MD Work Phone: [facility] 10-13-2023 11:23-0400 Body height 167.6 cm Georgina Carrillo MD Work Phone: [facility] 10-13-2023 11:23-0400 Body mass index (BMI) [Ratio] 30.83 kg/m2 Georgina Carrillo MD Work Phone: [facility] 10-13-2023 11:23-0400 Body weight 86.64 kg Georgina Carrillo MD Work Phone: [facility] 08-28-2024 11:23-0400 Diastolic blood pressure 69 mm[Hg] Georgina Carrillo MD Work Phone: [facility] 10-13-2023 11:23-0400 Heart rate 81 /min Georgina Carrillo MD Work Phone: [facility] 10-13-2023 11:23-0400 SaO2% (BldA) [Mass fraction] 100 % Georgina Carrillo MD Work Phone: [facility] 10-13-2023 11:23-0400 Systolic blood pressure 125 mm[Hg] Georgina Carrillo MD Work Phone: [facility] 10-06-2023 15:36-0400 Body height 166.6 cm Pacc 4 Work Phone: [facility] 10-06-2023 15:36-0400 Body mass index (BMI) [Ratio] 29.61 kg/m2 P[facility] 4 Work Phone: [facility] 10-06-2023 15:36-0400 Body temperature 96.69 [degF] Pacc 4 Work Phone: [facility] 10-06-2023 15:36-0400 Body weight 82.2 kg Pacc 4 Work Phone: [facility] 10-06-2023 15:36-0400 Diastolic blood pressure 84 mm[Hg] Pacc 4 Work Phone: [facility] 10-06-2023 15:36-0400 Heart rate 77 /min Pacc 4 Work Phone: [facility] 10-06-2023 15:36-0400 Respiratory rate 17 /min Pacc 4 Work Phone: [facility] 10-06-2023 15:36-0400 SaO2% (BldA) [Mass fraction] 99 % Pacc 4 Work Phone: [facility] 10-06-2023 15:36-0400 Systolic blood pressure 125 mm[Hg] Pacc 4 Work Phone: [facility] 09-08-2023 11:15-0400 Body height 167.6 cm Kasie Avalos MD Work Phone: [facility] 09-08-2023 11:15-0400 Body mass index (BMI) [Ratio] 28.34 kg/m2 Kasie Avalos MD Work Phone: [facility] 09-08-2023 11:15-0400 Body temperature 97.3 [degF] Kasie Avalos MD Work Phone: [facility] 09-08-2023 11:15-0400 Body weight 79.65 kg Kasie Avalos MD Work Phone: [facility] 09-08-2023 11:15-0400 Diastolic blood pressure 82 mm[Hg] Kasie Avalos MD Work Phone: [facility] 09-08-2023 11:15-0400 Heart rate 74 /min Kasie Avalos MD Work Phone: [facility] 09-08-2023 11:15-0400 SaO2% (BldA) [Mass fraction] 100 % Kasie Avalos MD Work Phone: [facility] 09-08-2023 11:15-0400 Systolic blood pressure 118 mm[Hg] Kasie Avalos MD Work Phone: [facility] 08-26-2023 16:30-0400 Diastolic blood pressure 53 mm[Hg] Britt Bradshaw MD Work Phone: [facility] 08-26-2023 16:30-0400 Heart rate 62 /min Britt Bradshaw MD Work Phone: [facility] 08-26-2023 16:30-0400 Respiratory rate 16 /min Britt Bradshaw MD Work Phone: [facility] 08-26-2023 16:30-0400 SaO2% (BldA) [Mass fraction] 98 % Britt Bradshaw MD Work Phone: [facility] 08-26-2023 16:30-0400 Systolic blood pressure 104 mm[Hg] Britt Bradshaw MD Work Phone: [facility] 08-26-2023 15:19-0400 Body height 167.6 cm Britt Bradshaw MD Work Phone: [facility] 08-26-2023 15:19-0400 Body mass index (BMI) [Ratio] 28.25 kg/m2 Britt Bradshaw MD Work Phone: [facility] 08-26-2023 15:19-0400 Body temperature 98.1 [degF] Britt Bradshaw MD Work Phone: [facility] 08-26-2023 15:19-0400 Body weight 79.38 kg Britt Bradshaw MD Work Phone: [facility] 08-21-2023 12:56-0400 Diastolic blood pressure 55 mm[Hg] 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 Jaquan Cristhian Work Phone: [facility] 08-21-2023 12:56-0400 Heart rate 72 /min 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 Jaquan Cristhian Work Phone: [facility] 08-21-2023 12:56-0400 Respiratory rate 18 /min 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 Jaquan Cristhian Work Phone: [facility] 08-21-2023 12:56-0400 SaO2% (BldA) [Mass fraction] 98 % 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 Jaquan Cristhian Work Phone: [facility] 08-21-2023 12:56-0400 Systolic blood pressure 103 mm[Hg] 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 Jaquan Cristhian Work Phone: [facility] 08-21-2023 08:54-0400 Body height 168.91 cm 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 Jaquan Cristhian Work Phone: [facility] 08-21-2023 08:54-0400 Body weight 79 kg 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 Jaquan Cristhian Work Phone: [facility] 08-21-2023 08:48-0400 Body temperature 97.9 [degF] 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 Jaquan Cristhian Work Phone: [facility] 08-14-2023 18:07-0400 Diastolic blood pressure 74 mm[Hg] 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 Jaquan Cristhian Work Phone: [facility] 08-14-2023 18:07-0400 Heart rate 66 /min 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 Jaquan Cristhian Work Phone: [facility] 08-14-2023 18:07-0400 Respiratory rate 18 /min 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 Jaquan Cristhian Work Phone: [facility] 08-14-2023 18:07-0400 SaO2% (BldA) [Mass fraction] 99 % 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 Jaquan Cristhian Work Phone: [facility] 08-14-2023 18:07-0400 Systolic blood pressure 110 mm[Hg] 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 Jaquan Cristhian Work Phone: [facility] 08-14-2023 16:17-0400 Body height 167.64 cm 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 Jaquan Cristhian Work Phone: [facility] 08-14-2023 16:17-0400 Body temperature 97.5 [degF] 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 Jaquan Cristhian Work Phone: [facility] 08-14-2023 16:17-0400 Body weight 78.92 kg 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 Jaquan Cristhian Work Phone: [facility] 08-09-2023 13:51-0400 Diastolic blood pressure 79 mm[Hg] Vic Ramos MD Work Phone: [facility] 08-09-2023 13:51-0400 Heart rate 76 /min Vic Ramos MD Work Phone: [facility] 08-09-2023 13:51-0400 Systolic blood pressure 113 mm[Hg] Vic Ramos MD Work Phone: [facility] 08-04-2023 08:23-0400 Body mass index (BMI) [Ratio] 29.21 kg/m2 Boogie Murguia MD Work Phone: [facility] 08-04-2023 08:23-0400 Body weight 82.1 kg Boogie Murguia MD Work Phone: [facility] 07-31-2023 13:21-0400 Diastolic blood pressure 55 mm[Hg] 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 Jaquan Cristhian Work Phone: [facility] 07-31-2023 13:21-0400 Heart rate 64 /min 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 Jaquan Cristhian Work Phone: [facility] 07-31-2023 13:21-0400 Respiratory rate 18 /min 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 Jaquan Cristhian Work Phone: [facility] 07-31-2023 13:21-0400 SaO2% (BldA) [Mass fraction] 97 % 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 Jaquan Cristhian Work Phone: [facility] 07-31-2023 13:21-0400 Systolic blood pressure 104 mm[Hg] 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 Jaquan Cristhian Work Phone: [facility] 07-31-2023 10:21-0400 Body height 168.91 cm 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 Jaquan Cristhian Work Phone: [facility] 07-31-2023 10:21-0400 Body temperature 98.2 [degF] 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 Jaquan Cristhian Work Phone: [facility] 07-31-2023 10:21-0400 Body weight 79 kg 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 Jaquan Cristhian Work Phone: [facility] 07-17-2023 21:45-0400 Body temperature 98.2 [degF] 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 Jaquan Cristhian Work Phone: [facility] 07-17-2023 21:45-0400 Diastolic blood pressure 73 mm[Hg] 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 Jaquan Cristhian Work Phone: [facility] 07-17-2023 21:45-0400 Heart rate 66 /min 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 Jaquan Cristhian Work Phone: [facility] 07-17-2023 21:45-0400 Respiratory rate 16 /min 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 Jaquan Cristhian Work Phone: [facility] 07-17-2023 21:45-0400 SaO2% (BldA) [Mass fraction] 97 % 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 Jaquan Cristhian Work Phone: [facility] 07-17-2023 21:45-0400 Systolic blood pressure 108 mm[Hg] 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 Jaquan Cristhian Work Phone: [facility] 07-17-2023 12:39-0400 Body height 167.64 cm 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 Jaquan Cristhian Work Phone: [facility] 07-17-2023 08:45-0400 Body weight 79.5 kg 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 Jaquan Cristhian Work Phone: [facility] 07-17-2023 07:30-0400 Diastolic blood pressure 53 mm[Hg] 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 Jaquan Cristhian Work Phone: [facility] 07-17-2023 07:30-0400 Heart rate 62 /min 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 Jaquan Cristhian Work Phone: [facility] 07-17-2023 07:30-0400 Respiratory rate 16 /min 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 Jaquan Cristhian Work Phone: [facility] 07-17-2023 07:30-0400 SaO2% (BldA) [Mass fraction] 96 % 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 Jaquan Cristhian Work Phone: [facility] 07-17-2023 07:30-0400 Systolic blood pressure 106 mm[Hg] 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 Jaquan Cristhian Work Phone: [facility] 07-16-2023 14:44-0400 Body height 167.64 cm 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 Jaquan Cristhian Work Phone: [facility] 07-16-2023 14:44-0400 Body temperature 97.6 [degF] 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 Jaquan Cristhian Work Phone: [facility] 07-16-2023 14:44-0400 Body weight 79.95 kg 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 Jaquan Cristhian Work Phone: [facility] 07-03-2023 07:00-0400 Body temperature 98.6 [degF] David Wodrich DO Work Phone: 1(890)197-995219 [place] [address] 07-03-2023 07:00-0400 Diastolic blood pressure 57 mm[Hg] David Wodrich DO Work Phone: 3(290)801-724519 [place] [address] 07-03-2023 07:00-0400 Heart rate 105 /min David Wodrich DO Work Phone: 2(074)960-269619 [place] [address] 07-03-2023 07:00-0400 Respiratory rate 18 /min David Wodrich DO Work Phone: 1(370)257-920919 [place] [address] 07-03-2023 07:00-0400 SaO2% (BldA) [Mass fraction] 100 % David Wodrich DO Work Phone: 4(496)628-191119 [place] [address] 07-03-2023 07:00-0400 Systolic blood pressure 99 mm[Hg] David Wodrich DO Work Phone: 3(530)[phone] [place] [address] 06-29-2023 18:16-0400 Body height 167.6 cm David Wodrich DO Work Phone: 8(364)688-123519 [place] [address] 06-29-2023 18:16-0400 Body mass index (BMI) [Ratio] 27.12 kg/m2 David Wodrich DO Work Phone: 1(744)483-898119 [place] [address] 06-29-2023 18:16-0400 Body weight 76.2 kg David Wodrich DO Work Phone: 8(533)317-642319 [place] [address] 06-22-2023 11:14-0400 Body height 167.6 cm Sherry Magaña MD Work Phone: [facility] 06-22-2023 11:14-0400 Body mass index (BMI) [Ratio] 27.12 kg/m2 Sherry Magaña MD Work Phone: [facility] 06-22-2023 11:14-0400 Body weight 76.2 kg Sherry Magaña MD Work Phone: [facility] 06-18-2023 09:35-0400 Body height 167.6 cm Breanna Stern APRN.OFFSHORE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 Work Phone: [facility] 06-18-2023 09:35-0400 Body mass index (BMI) [Ratio] 27.29 kg/m2 Breanna Stern APRN.OFFSHORE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 Work Phone: [facility] 06-18-2023 09:35-0400 Body temperature 98.01 [degF] Breanna Stern APRN.OFFSHORE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 Work Phone: [facility] 06-18-2023 09:35-0400 Body weight 76.66 kg Breanna Stern APRN.OFFSHORE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 Work Phone: [facility] 06-18-2023 09:35-0400 Diastolic blood pressure 82 mm[Hg] Breanna Stern APRN.OFFSHORE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 Work Phone: [facility] 06-18-2023 09:35-0400 Heart rate 78 /min Breanna Stern APRN.OFFSHORE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 Work Phone: [facility] 06-18-2023 09:35-0400 SaO2% (BldA) [Mass fraction] 100 % Breanna Stern APRN.OFFSHORE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 Work Phone: [facility] 06-18-2023 09:35-0400 Systolic blood pressure 142 mm[Hg] Breanna Stern APRN.OFFSHORE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 Work Phone: [facility] 05-31-2023 00:53-0400 Diastolic blood pressure 82 mm[Hg] 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 Jaquan Cristhian Work Phone: [facility] 05-31-2023 00:53-0400 Heart rate 51 /min 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 Jaquan Cristhian Work Phone: [facility] 05-31-2023 00:53-0400 Respiratory rate 18 /min 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 Jaquan Cristhian Work Phone: [facility] 05-31-2023 00:53-0400 SaO2% (BldA) [Mass fraction] 91 % 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 Jaquan Cristhian Work Phone: [facility] 05-31-2023 00:53-0400 Systolic blood pressure 142 mm[Hg] 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 Jaquan Cristhian Work Phone: [facility] 05-30-2023 15:25-0400 Body height 167.64 cm 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 Jaquan Cristhian Work Phone: [facility] 05-30-2023 15:25-0400 Body temperature 97.7 [degF] 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 Jaquan Cristhian Work Phone: [facility] 05-30-2023 15:25-0400 Body weight 76.65 kg 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 Jaquan Cristhian Work Phone: [facility] 05-17-2023 16:03-0400 Diastolic blood pressure 82 mm[Hg] [facility] 05-17-2023 16:03-0400 Heart rate 72 /min [facility] 05-17-2023 16:03-0400 Mean blood pressure 95 mm[Hg] [facility] 05-17-2023 16:03-0400 Respiratory rate 17 /min [facility] 05-17-2023 16:03-0400 SaO2% (BldA) [Mass fraction] 100 % [facility] 05-17-2023 16:03-0400 Systolic blood pressure 120 mm[Hg] [facility] 05-17-2023 15:30-0400 Diastolic blood pressure 86 mm[Hg] [facility] 05-17-2023 15:30-0400 Heart rate 71 /min [facility] 05-17-2023 15:30-0400 Mean blood pressure 103 mm[Hg] [facility] 05-17-2023 15:30-0400 Respiratory rate 16 /min [facility] 05-17-2023 15:30-0400 SaO2% (BldA) [Mass fraction] 100 % [facility] 05-17-2023 15:30-0400 Systolic blood pressure 136 mm[Hg] [facility] 05-17-2023 15:00-0400 Diastolic blood pressure 78 mm[Hg] [facility] 05-17-2023 15:00-0400 Heart rate 70 /min [facility] 05-17-2023 15:00-0400 Mean blood pressure 97 mm[Hg] [facility] 05-17-2023 15:00-0400 Respiratory rate 15 /min [facility] 05-17-2023 14:16-0400 Body temperature 97.7 [degF] [facility] 05-17-2023 14:16-0400 Heart rate 74 /min [facility] 05-14-2023 13:06-0400 Hourly Rounding Moncho Amador [facility] 05-14-2023 13:06-0400 Promise to Return Moncho Amador [facility] 05-14-2023 12:06-0400 Hourly Rounding Moncho Amador [facility] 05-14-2023 12:06-0400 Promise to Return Moncho Amador [facility] 05-14-2023 11:32-0400 Hourly Rounding Moncho Paster [facility] 05-14-2023 11:32-0400 Promise to Return Moncho Paster [facility] 05-14-2023 10:08-0400 Heart rate 57 /min Moncho Paster [facility] 05-14-2023 10:08-0400 SaO2% (BldA) [Mass fraction] 100 % Moncho Paster [facility] 05-14-2023 10:08-0400 Diastolic blood pressure 80 mm[Hg] Moncho Paster [facility] 05-14-2023 10:08-0400 Mean blood pressure 93 mm[Hg] Moncho Paster [facility] 05-14-2023 10:08-0400 Systolic blood pressure 119 mm[Hg] Moncho Paster [facility] 05-14-2023 10:08-0400 Body temperature 97.34 [degF] Moncho Paster [facility] 05-14-2023 07:32-0400 Heart rate 57 /min Moncho Paster [facility] 05-14-2023 07:32-0400 SaO2% (BldA) [Mass fraction] 100 % Moncho Paster [facility] 05-14-2023 07:32-0400 Diastolic blood pressure 66 mm[Hg] Moncho Paster [facility] 05-14-2023 07:32-0400 Mean blood pressure 77 mm[Hg] Moncho Paster [facility] 05-14-2023 07:32-0400 Systolic blood pressure 100 mm[Hg] Moncho Paster [facility] 05-14-2023 07:31-0400 Body temperature 97.34 [degF] Moncho Paster [facility] 05-14-2023 05:00-0400 Blood Pressure Location Moncho Paster [facility] 05-14-2023 05:00-0400 Diastolic blood pressure 77 mm[Hg] Moncho Paster [facility] 05-14-2023 05:00-0400 Mean blood pressure 90 mm[Hg] Moncho Paster [facility] 05-14-2023 05:00-0400 Systolic blood pressure 116 mm[Hg] Moncho Paster [facility] 05-13-2023 23:38-0400 Heart rate 53 /min Moncho Paster [facility] 05-13-2023 23:38-0400 SaO2% (BldA) [Mass fraction] 100 % Moncho Paster [facility] 05-13-2023 23:38-0400 Respiratory rate 16 /min Moncho Paster [facility] 05-13-2023 23:37-0400 Mean blood pressure 92 mm[Hg] Moncho Paster [facility] 05-13-2023 23:00-0400 Blood Pressure Location Moncho Paster [facility] 05-13-2023 23:00-0400 Body temperature 97.34 [degF] Moncho Paster [facility] 05-13-2023 19:33-0400 Body temperature 97.52 [degF] Moncho Paster [facility] 05-13-2023 16:00-0400 Body temperature 98.06 [degF] Moncho Paster [facility] 05-13-2023 11:00-0400 Body temperature 98.24 [degF] Moncho Paster [facility] 05-12-2023 16:17-0400 Blood Pressure Location Moncho Paster [facility] 05-12-2023 16:00-0400 Respiratory rate 20 /min Moncho Paster [facility] 05-12-2023 15:55-0400 Mean blood pressure 86 mm[Hg] Moncho Paster [facility] 05-12-2023 15:55-0400 Respiratory rate 14 /min Moncho Paster [facility] 05-12-2023 15:50-0400 Mean blood pressure 87 mm[Hg] Moncho Paster [facility] 05-12-2023 15:50-0400 Respiratory rate 18 /min Moncho Paster [facility] 05-12-2023 15:36-0400 Body temperature 97.88 [degF] Moncho Paster [facility] 05-12-2023 15:30-0400 Respiratory rate 12 /min Moncho Paster [facility] 05-12-2023 15:25-0400 Respiratory rate 12 /min Moncho Paster [facility] 05-12-2023 13:19-0400 Heart rate 61 /min Moncho Paster [facility] 05-12-2023 09:32-0400 Heart rate 77 /min Moncho Paster [facility] 05-11-2023 16:43-0400 Diastolic blood pressure 67 mm[Hg] Mateusz Garcia [facility] 05-11-2023 16:43-0400 Heart rate 75 /min Mateusz Jose [facility] 05-11-2023 16:43-0400 Mean blood pressure 83 mm[Hg] Mateusz Jose [facility] 05-11-2023 16:43-0400 Respiratory rate 18 /min Mateusz Jose [facility] 05-11-2023 16:43-0400 SaO2% (BldA) [Mass fraction] 100 % Mateusz Jose [facility] 05-11-2023 16:43-0400 Systolic blood pressure 115 mm[Hg] Mateusz Jose [facility] 05-11-2023 15:00-0400 Diastolic blood pressure 79 mm[Hg] Mateusz Jose [facility] 05-11-2023 15:00-0400 Heart rate 65 /min Mateusz Jose [facility] 05-11-2023 15:00-0400 Mean blood pressure 92 mm[Hg] Mateusz Jose [facility] 05-11-2023 15:00-0400 Systolic blood pressure 118 mm[Hg] Mateusz Jose [facility] 05-11-2023 14:30-0400 Heart rate 69 /min Mateusz Jose [facility] 05-11-2023 14:30-0400 Respiratory rate 18 /min Mateusz Jose [facility] 05-11-2023 14:30-0400 SaO2% (BldA) [Mass fraction] 100 % Mateusz Jose [facility] 05-11-2023 12:00-0400 Body temperature 97.7 [degF] Mateusz Jose [facility] 05-11-2023 12:00-0400 Diastolic blood pressure 83 mm[Hg] Mateusz Jose [facility] 05-11-2023 12:00-0400 Heart rate 73 /min Mateusz Jose [facility] 05-11-2023 12:00-0400 Systolic blood pressure 147 mm[Hg] Mateusz Jose [facility] 05-09-2023 16:20-0400 Diastolic blood pressure 67 mm[Hg] Mateusz Jose [facility] 05-09-2023 16:20-0400 Heart rate 75 /min Mateusz Jose [facility] 05-09-2023 16:20-0400 Mean blood pressure 82 mm[Hg] Mateusz Jose [facility] 05-09-2023 16:20-0400 Respiratory rate 16 /min Mateusz Jose [facility] 05-09-2023 16:20-0400 SaO2% (BldA) [Mass fraction] 97 % Mateusz Jose [facility] 05-09-2023 16:20-0400 Systolic blood pressure 112 mm[Hg] Mateusz Jose [facility] 05-09-2023 15:40-0400 Diastolic blood pressure 69 mm[Hg] Mateusz Jose [facility] 05-09-2023 15:40-0400 Heart rate 69 /min Mateusz Jose [facility] 05-09-2023 15:40-0400 Mean blood pressure 84 mm[Hg] Mateusz Jose [facility] 05-09-2023 15:40-0400 Respiratory rate 18 /min Mateusz Jose [facility] 05-09-2023 15:40-0400 SaO2% (BldA) [Mass fraction] 100 % Mateusz Jose [facility] 05-09-2023 15:40-0400 Systolic blood pressure 113 mm[Hg] Mateusz Jose [facility] 05-09-2023 14:00-0400 Diastolic blood pressure 80 mm[Hg] Mateusz Jose [facility] 05-09-2023 14:00-0400 Heart rate 78 /min Mateusz Jose [facility] 05-09-2023 14:00-0400 Mean blood pressure 96 mm[Hg] Mateusz Jose [facility] 05-09-2023 14:00-0400 Respiratory rate 19 /min Mateusz Jose [facility] 05-09-2023 14:00-0400 Systolic blood pressure 129 mm[Hg] Mateusz Jose [facility] 05-09-2023 11:47-0400 Body temperature 97.7 [degF] Mateusz Jose [facility] 05-09-2023 11:47-0400 Heart rate 107 /min Mateusz Jose [facility] 05-06-2023 21:11-0400 Diastolic blood pressure 61 mm[Hg] Mateusz Jose [facility] 05-06-2023 21:11-0400 Heart rate 55 /min Mateusz Jose [facility] 05-06-2023 21:11-0400 Mean blood pressure 74 mm[Hg] Mateusz Jose [facility] 05-06-2023 21:11-0400 Respiratory rate 16 /min Mateusz Jose [facility] 05-06-2023 21:11-0400 SaO2% (BldA) [Mass fraction] 100 % Mateusz Jose [facility] 05-06-2023 21:11-0400 Systolic blood pressure 100 mm[Hg] Mateusz Jose [facility] 05-06-2023 20:20-0400 Diastolic blood pressure 73 mm[Hg] Mateusz Jose [facility] 05-06-2023 20:20-0400 Heart rate 53 /min Mateusz Jose [facility] 05-06-2023 20:20-0400 Mean blood pressure 89 mm[Hg] Mateusz Jose [facility] 05-06-2023 20:20-0400 Respiratory rate 14 /min Mateusz Jose [facility] 05-06-2023 20:20-0400 SaO2% (BldA) [Mass fraction] 100 % Mateusz Jose [facility] 05-06-2023 20:20-0400 Systolic blood pressure 122 mm[Hg] Mateusz Jose [facility] 05-06-2023 19:30-0400 Diastolic blood pressure 87 mm[Hg] Mateusz Jose [facility] 05-06-2023 19:30-0400 Heart rate 72 /min Mateusz Jose [facility] 05-06-2023 19:30-0400 Mean blood pressure 105 mm[Hg] Mateusz Jose [facility] 05-06-2023 19:30-0400 Respiratory rate 16 /min Mateusz Jose [facility] 05-06-2023 19:30-0400 SaO2% (BldA) [Mass fraction] 100 % Mateuszdeo Garcia [facility] 05-06-2023 19:30-0400 Systolic blood pressure 141 mm[Hg] Mateusz Garcia [facility] 05-06-2023 15:45-0400 Body temperature 98.78 [degF] Mateusz Garcia [facility] 05-06-2023 15:45-0400 Heart rate 66 /min Mateuszdeo Garcia [facility] 05-06-2023 15:45-0400 Respiratory rate 18 /min Mateusz Garcia [facility] 04-28-2023 09:49-0400 Body height 167.6 cm Kasie Avalos MD Work Phone: [facility] 04-28-2023 09:49-0400 Body temperature 96.6 [degF] Kasie Avalos MD Work Phone: [facility] 04-28-2023 09:49-0400 Body weight 79.38 kg Kasie Avalos MD Work Phone: [facility] 04-28-2023 09:49-0400 Diastolic blood pressure 75 mm[Hg] Kasie Avalos MD Work Phone: [facility] 04-28-2023 09:49-0400 Heart rate 80 /min Kasie Avalos MD Work Phone: [facility] 04-28-2023 09:49-0400 SaO2% (BldA) [Mass fraction] 100 % Kasie Avalos MD Work Phone: [facility] 04-28-2023 09:49-0400 Systolic blood pressure 106 mm[Hg] Kasie Avalos MD Work Phone: [facility] 04-06-2023 14:00-0500 Diastolic blood pressure 59 mm[Hg] 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 Jaquan Cristhian Work Phone: [facility] 04-06-2023 14:00-0500 Heart rate 59 /min 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 Jaquan Cristhian Work Phone: [facility] 04-06-2023 14:00-0500 Respiratory rate 16 /min 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 Jaquan Cristhian Work Phone: [facility] 04-06-2023 14:00-0500 SaO2% (BldA) [Mass fraction] 98 % 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 Jaquan Cristhian Work Phone: [facility] 04-06-2023 14:00-0500 Systolic blood pressure 113 mm[Hg] 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 Jaquan Cristhian Work Phone: [facility] 04-06-2023 09:47-0500 Body height 167.64 cm 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 Jaquan Cristhian Work Phone: [facility] 04-06-2023 09:47-0500 Body temperature 96.7 [degF] 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 Jaquan Cristhian Work Phone: [facility] 04-06-2023 09:47-0500 Body weight 81.1 kg 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 Jaquan Cristhian Work Phone: [facility] 04-02-2023 17:00-0500 Diastolic blood pressure 63 mm[Hg] [facility] 04-02-2023 17:00-0500 Heart rate 75 /min [facility] 04-02-2023 17:00-0500 Mean blood pressure 80 mm[Hg] [facility] 04-02-2023 17:00-0500 SaO2% (BldA) [Mass fraction] 99 % [facility] 04-02-2023 17:00-0500 Systolic blood pressure 113 mm[Hg] [facility] 04-02-2023 16:00-0500 Diastolic blood pressure 71 mm[Hg] [facility] 04-02-2023 16:00-0500 Heart rate 71 /min [facility] 04-02-2023 16:00-0500 Mean blood pressure 88 mm[Hg] [facility] 04-02-2023 16:00-0500 Respiratory rate 14 /min [facility] 04-02-2023 16:00-0500 SaO2% (BldA) [Mass fraction] 100 % [facility] 04-02-2023 16:00-0500 Systolic blood pressure 123 mm[Hg] [facility] 04-02-2023 15:00-0500 Diastolic blood pressure 55 mm[Hg] [facility] 04-02-2023 15:00-0500 Heart rate 76 /min [facility] 04-02-2023 15:00-0500 Mean blood pressure 73 mm[Hg] [facility] 04-02-2023 15:00-0500 Respiratory rate 17 /min [facility] 04-02-2023 15:00-0500 Systolic blood pressure 109 mm[Hg] [facility] 04-02-2023 10:54-0500 Body temperature 98.6 [degF] [facility] 04-02-2023 10:54-0500 Heart rate 73 /min [facility] 04-02-2023 10:54-0500 Respiratory rate 16 /min [facility] 03-20-2023 08:41-0500 Body temperature 97.5 [degF] Melisa Barker MD Work Phone: [facility] 03-20-2023 08:41-0500 Diastolic blood pressure 74 mm[Hg] Melisa Barker MD Work Phone: [facility] 03-20-2023 08:41-0500 Heart rate 62 /min Melisa Barker MD Work Phone: [facility] 03-20-2023 08:41-0500 Respiratory rate 18 /min Melisa Barker MD Work Phone: [facility] 03-20-2023 08:41-0500 SaO2% (BldA) [Mass fraction] 98 % Melisa Barker MD Work Phone: [facility] 03-20-2023 08:41-0500 Systolic blood pressure 131 mm[Hg] Melisa Barker MD Work Phone: [facility] 03-16-2023 13:47-0500 Body height 167.6 cm Melisa Barker MD Work Phone: [facility] 03-16-2023 13:47-0500 Body mass index (BMI) [Ratio] 32.99 kg/m2 Melisa Barker MD Work Phone: [facility] 03-16-2023 13:47-0500 Body weight 92.7 kg Melisa Barker MD Work Phone: [facility] 03-16-2023 12:00-0500 Diastolic blood pressure 70 mm[Hg] Earnest Johnie [facility] 03-16-2023 12:00-0500 Heart rate 69 /min Earnest Blancoe [facility] 03-16-2023 12:00-0500 Mean blood pressure 84 mm[Hg] Earnest Johnie [facility] 03-16-2023 12:00-0500 Systolic blood pressure 113 mm[Hg] Earnest Johnie [facility] 03-16-2023 11:30-0500 Diastolic blood pressure 86 mm[Hg] Earnest Johnie [facility] 03-16-2023 11:30-0500 Heart rate 61 /min Earnest Johnie [facility] 03-16-2023 11:30-0500 Mean blood pressure 102 mm[Hg] Earnest Blancoe [facility] 03-16-2023 11:30-0500 Respiratory rate 16 /min Earnest Blancoe [facility] 03-16-2023 11:30-0500 Systolic blood pressure 133 mm[Hg] Earnest Blancoe [facility] 03-16-2023 11:07-0500 Diastolic blood pressure 83 mm[Hg] Earnest Blancoe [facility] 03-16-2023 11:07-0500 Heart rate 63 /min Earnest Blancoe [facility] 03-16-2023 11:07-0500 Mean blood pressure 94 mm[Hg] Earnest Blancoe [facility] 03-16-2023 11:07-0500 SaO2% (BldA) [Mass fraction] 100 % Earnest Johnie [facility] 03-16-2023 11:07-0500 Systolic blood pressure 116 mm[Hg] Earnest Blancoe [facility] 03-16-2023 10:21-0500 Body temperature 97.52 [degF] Earnest Blancoe [facility] 03-16-2023 10:21-0500 Heart rate 70 /min Earnest Johnie [facility] 03-16-2023 10:21-0500 SaO2% (BldA) [Mass fraction] 100 % Earnest Johnie [facility] 03-15-2023 18:00-0500 Diastolic blood pressure 75 mm[Hg] Earnest Johnie [facility] 03-15-2023 18:00-0500 Heart rate 68 /min Earnest Johnie [facility] 03-15-2023 18:00-0500 Mean blood pressure 94 mm[Hg] Earnest Johnie [facility] 03-15-2023 18:00-0500 Respiratory rate 16 /min Earnest Johnie [facility] 03-15-2023 18:00-0500 SaO2% (BldA) [Mass fraction] 98 % Earnest Johnie [facility] 03-15-2023 18:00-0500 Systolic blood pressure 131 mm[Hg] Earnest Johnie [facility] 03-15-2023 17:19-0500 Diastolic blood pressure 66 mm[Hg] Earnest Johnie [facility] 03-15-2023 17:19-0500 Heart rate 56 /min Earnest Johnie [facility] 03-15-2023 17:19-0500 Mean blood pressure 79 mm[Hg] Earnest Johnie [facility] 03-15-2023 17:19-0500 Respiratory rate 18 /min Earnest Johnie [facility] 03-15-2023 17:19-0500 SaO2% (BldA) [Mass fraction] 95 % Earnest Johnie [facility] 03-15-2023 17:19-0500 Systolic blood pressure 104 mm[Hg] Earnest Johnie [facility] 03-15-2023 16:23-0500 Diastolic blood pressure 72 mm[Hg] Earnest Johnie [facility] 03-15-2023 16:23-0500 Heart rate 58 /min Earnest Johnie [facility] 03-15-2023 16:23-0500 Mean blood pressure 90 mm[Hg] Earnest Jett [facility] 03-15-2023 16:23-0500 Respiratory rate 20 /min Earnest Jett [facility] 03-15-2023 16:23-0500 SaO2% (BldA) [Mass fraction] 99 % Earnest Jett [facility] 03-15-2023 16:23-0500 Systolic blood pressure 126 mm[Hg] Earnest Jett [facility] 03-15-2023 11:41-0500 Body temperature 97.88 [degF] Earnest Jett [facility] 03-15-2023 11:41-0500 Heart rate 71 /min Earnest Jett [facility] 03-15-2023 11:41-0500 Respiratory rate 26 /min Earnest Jett [facility] 03-10-2023 11:50-0500 Body temperature 97.9 [degF] Sherry Magaña MD Work Phone: [facility] 03-10-2023 11:50-0500 Diastolic blood pressure 85 mm[Hg] Sherry Magaña MD Work Phone: [facility] 03-10-2023 11:50-0500 Heart rate 73 /min Sherry Magaña MD Work Phone: [facility] 03-10-2023 11:50-0500 Respiratory rate 18 /min Sherry Magaña MD Work Phone: [facility] 03-10-2023 11:50-0500 SaO2% (BldA) [Mass fraction] 100 % Sherry Magaña MD Work Phone: [facility] 03-10-2023 11:50-0500 Systolic blood pressure 137 mm[Hg] Sherry Magaña MD Work Phone: [facility] 03-10-2023 08:32-0500 Body mass index (BMI) [Ratio] 29.69 kg/m2 Sherry Magaña MD Work Phone: [facility] 03-10-2023 08:32-0500 Body weight 83.4 kg Sherry Magaña MD Work Phone: [facility] 03-05-2023 06:42-0500 Body height 167.6 cm Sherry Magaña MD Work Phone: [facility] 02-13-2023 17:30-0500 Diastolic blood pressure 73 mm[Hg] 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 Jaquan Cristhian Work Phone: [facility] 02-13-2023 17:30-0500 Heart rate 61 /min 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 Jaquan Cristhian Work Phone: [facility] 02-13-2023 17:30-0500 Respiratory rate 18 /min 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 Jaquan Cristhian Work Phone: [facility] 02-13-2023 17:30-0500 SaO2% (BldA) [Mass fraction] 100 % 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 Jaquan Cristhian Work Phone: [facility] 02-13-2023 17:30-0500 Systolic blood pressure 121 mm[Hg] 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 Jaquan Cristhian Work Phone: [facility] 02-13-2023 10:43-0500 Body height 167.64 cm 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 Jaquan Cristhian Work Phone: [facility] 02-13-2023 10:43-0500 Body weight 83 kg 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 Jaquan Cristhian Work Phone: [facility] 02-13-2023 10:42-0500 Body temperature 98.2 [degF] 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 Jaquan Cristhian Work Phone: [facility] 12-31-2022 15:49-0500 Diastolic blood pressure 82 mm[Hg] Mateusz Jose [facility] 12-31-2022 15:49-0500 Heart rate 81 /min Mateusz Jose [facility] 12-31-2022 15:49-0500 Mean blood pressure 96 mm[Hg] Mateusz Jose [facility] 12-31-2022 15:49-0500 Respiratory rate 16 /min Mateusz Jose [facility] 12-31-2022 15:49-0500 SaO2% (BldA) [Mass fraction] 100 % Mateusz Jose [facility] 12-31-2022 15:49-0500 Systolic blood pressure 124 mm[Hg] Mateusz Jose [facility] 12-31-2022 15:40-0500 Hourly Rounding Mateusz Jose [facility] 12-31-2022 15:40-0500 Promise to Return Mateusz Jose [facility] 12-31-2022 15:00-0500 Diastolic blood pressure 78 mm[Hg] Mateusz Jose [facility] 12-31-2022 15:00-0500 Heart rate 76 /min Mateusz Jose [facility] 12-31-2022 15:00-0500 Mean blood pressure 91 mm[Hg] Mateusz Jose [facility] 12-31-2022 15:00-0500 Systolic blood pressure 117 mm[Hg] Mateusz Jose [facility] 12-31-2022 14:40-0500 Hourly Rounding Mateusz Jose [facility] 12-31-2022 14:40-0500 Promise to Return Mateusz Jose [facility] 12-31-2022 14:00-0500 Diastolic blood pressure 83 mm[Hg] Mateusz Jose [facility] 12-31-2022 14:00-0500 Heart rate 71 /min Mateusz Jose [facility] 12-31-2022 14:00-0500 Mean blood pressure 99 mm[Hg] Mateusz Jose [facility] 12-31-2022 14:00-0500 Systolic blood pressure 132 mm[Hg] Mateusz Jose [facility] 12-31-2022 13:40-0500 Hourly Rounding Mateusz Garcia [facility] 12-31-2022 13:40-0500 Promise to Return Mateusz Garcia [facility] 12-31-2022 12:42-0500 Body temperature 97.7 [degF] Mateusz Garcia [facility] 12-31-2022 12:42-0500 Heart rate 88 /min Mateusz Jose [facility] 12-04-2022 09:54-0400 Body height 166 cm Agustin Zamorano MD Work Phone: [facility] 12-04-2022 09:54-0400 Body weight 83.78 kg Agustin Zamorano MD Work Phone: [facility] 12-04-2022 09:54-0400 Diastolic blood pressure 62 mm[Hg] Agustin Zamorano MD Work Phone: [facility] 12-04-2022 09:54-0400 Heart rate 91 /min Agustin Zamorano MD Work Phone: [facility] 12-04-2022 09:54-0400 Systolic blood pressure 112 mm[Hg] Agustin Zamorano MD Work Phone: [facility] 11-04-2022 12:00-0400 Body temperature 97.7 [degF] Rheu Jeanne Work Phone: [facility] 11-04-2022 12:00-0400 Diastolic blood pressure 65 mm[Hg] Rheu Jeanne Work Phone: [facility] 11-04-2022 12:00-0400 Heart rate 97 /min Rheu Jeanne Work Phone: [facility] 11-04-2022 09:19-0400 Body height 167.6 cm Deacon Kat MD Work Phone: [facility] 11-04-2022 09:19-0400 Body temperature 97.81 [degF] Deacon Kat MD Work Phone: [facility] 11-04-2022 09:19-0400 Body weight 83.46 kg Deacon Kat MD Work Phone: [facility] 11-04-2022 09:19-0400 Diastolic blood pressure 81 mm[Hg] Deacon Kat MD Work Phone: [facility] 11-04-2022 09:19-0400 Heart rate 82 /min Deacon Kat MD Work Phone: [facility] 11-04-2022 09:19-0400 Respiratory rate 18 /min Deacon Kat MD Work Phone: [facility] 11-04-2022 09:19-0400 SaO2% (BldA) [Mass fraction] 98 % Deacon Kat MD Work Phone: [facility] 11-04-2022 09:19-0400 Systolic blood pressure 125 mm[Hg] Deacon Kat MD Work Phone: [facility] 11-02-2022 13:52-0400 Diastolic blood pressure 82 mm[Hg] Dimitri Walker MD Work Phone: [facility] 11-02-2022 13:52-0400 Heart rate 82 /min Dimitri Walker MD Work Phone: [facility] 11-02-2022 13:52-0400 Respiratory rate 18 /min Dimitri Walker MD Work Phone: [facility] 11-02-2022 13:52-0400 Systolic blood pressure 128 mm[Hg] Dimitri Walker MD Work Phone: [facility] 11-02-2022 10:35-0400 Body mass index (BMI) [Ratio] 30.18 kg/m2 Dimitri Walker MD Work Phone: [facility] 11-02-2022 10:35-0400 Body weight 84.82 kg Dimitri Walker MD Work Phone: [facility] Comment on above: stand up scale triage room 11-02-2022 10:34-0400 Body temperature 98.29 [degF] Dimitri Walker MD Work Phone: [facility] 11-02-2022 10:34-0400 SaO2% (BldA) [Mass fraction] 98 % Dimitri Walker MD Work Phone: [facility] 10-31-2022 08:30-0400 Diastolic blood pressure 67 mm[Hg] Jalyn Suresh DO Work Phone: [facility] 10-31-2022 08:30-0400 Systolic blood pressure 120 mm[Hg] Jalyn Suresh DO Work Phone: [facility] 10-31-2022 06:32-0400 Body temperature 97.7 [degF] Jalyn Suresh DO Work Phone: [facility] 10-31-2022 06:32-0400 Heart rate 92 /min Jalyn Suresh DO Work Phone: [facility] 10-31-2022 06:32-0400 Respiratory rate 19 /min Jalyn Suresh DO Work Phone: [facility] 10-31-2022 06:32-0400 SaO2% (BldA) [Mass fraction] 100 % Jalyn Suresh DO Work Phone: [facility] 10-20-2022 11:52-0400 Diastolic blood pressure 86 mm[Hg] Earnest Blancoe [facility] 10-20-2022 11:52-0400 Heart rate 75 /min Earnest Johnie [facility] 10-20-2022 11:52-0400 Respiratory rate 15 /min Earnest Johnie [facility] 10-20-2022 11:52-0400 SaO2% (BldA) [Mass fraction] 99 % Earnest Johnie [facility] 10-20-2022 11:52-0400 Systolic blood pressure 141 mm[Hg] Earnest Johnie [facility] 10-20-2022 10:31-0400 Diastolic blood pressure 70 mm[Hg] Earnest Johnie [facility] 10-20-2022 10:31-0400 Heart rate 70 /min Earnest Blancoe [facility] 10-20-2022 10:31-0400 Mean blood pressure 92 mm[Hg] Earnest Johnie [facility] 10-20-2022 10:31-0400 Respiratory rate 16 /min Earnest Johnie [facility] 10-20-2022 10:31-0400 SaO2% (BldA) [Mass fraction] 100 % Earnest Johnie [facility] 10-20-2022 10:31-0400 Systolic blood pressure 137 mm[Hg] Earnest Johnie [facility] 10-20-2022 09:17-0400 Diastolic blood pressure 63 mm[Hg] Earnest Blancoe [facility] 10-20-2022 09:17-0400 Heart rate 77 /min Earnest Blancoe [facility] 10-20-2022 09:17-0400 Mean blood pressure 85 mm[Hg] Earnest Blancoe [facility] 10-20-2022 09:17-0400 Respiratory rate 18 /min Earnest Blancoe [facility] 10-20-2022 09:17-0400 SaO2% (BldA) [Mass fraction] 100 % Earnest Blancoe [facility] 10-20-2022 09:17-0400 Systolic blood pressure 128 mm[Hg] Earnest Blancoe [facility] 10-20-2022 08:17-0400 Body temperature 97.88 [degF] Earnest Blancoe [facility] 10-19-2022 13:30-0400 Diastolic blood pressure 82 mm[Hg] Earnest Blancoe [facility] 10-19-2022 13:30-0400 Heart rate 67 /min Earnest Blancoe [facility] 10-19-2022 13:30-0400 Mean blood pressure 100 mm[Hg] Earnest Johnie [facility] 10-19-2022 13:30-0400 Respiratory rate 20 /min Earnest Blancoe [facility] 10-19-2022 13:30-0400 SaO2% (BldA) [Mass fraction] 100 % Earnest Blancoe [facility] 10-19-2022 13:30-0400 Systolic blood pressure 136 mm[Hg] Earnest Blancoe [facility] 10-19-2022 13:00-0400 Heart rate 61 /min Earnest Blancoe [facility] 10-19-2022 13:00-0400 Respiratory rate 18 /min Earnest Blancoe [facility] 10-19-2022 13:00-0400 Systolic blood pressure 127 mm[Hg] Earnest Johnie [facility] 10-19-2022 12:30-0400 Diastolic blood pressure 80 mm[Hg] Earnest Johnie [facility] 10-19-2022 12:30-0400 Heart rate 60 /min Earnest Blancoe [facility] 10-19-2022 12:30-0400 Mean blood pressure 97 mm[Hg] Earnest Blancoe [facility] 10-19-2022 12:30-0400 Respiratory rate 20 /min Earnest Blancoe [facility] 10-19-2022 12:30-0400 SaO2% (BldA) [Mass fraction] 100 % Earnest Blancoe [facility] 10-19-2022 12:30-0400 Systolic blood pressure 132 mm[Hg] Earnest Johnie [facility] 10-19-2022 08:34-0400 Body temperature 96.62 [degF] Earnest Johnie [facility] 10-19-2022 08:34-0400 Heart rate 73 /min Earnest Johnie [facility] 09-28-2022 07:54-0400 Body height 167.[address] Work Phone: [facility] 09-28-2022 07:54-0400 Body weight 83.[address] Work Phone: [facility] 09-18-2022 15:12-0400 Body height 167.6 cm Breanna Stern SPEECH PATHOLOGY SUPERVISOR.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 Work Phone: [facility] 09-18-2022 15:12-0400 Body temperature 97.5 [degF] Breanna Stern SPEECH PATHOLOGY SUPERVISOR.[employer]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 Work Phone: [facility] 09-18-2022 15:12-0400 Body weight 83.46 kg Breanna Stern SPEECH PATHOLOGY SUPERVISOR.[employer]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 Work Phone: [facility] 09-18-2022 15:12-0400 Diastolic blood pressure 88 mm[Hg] Braenna Stern SPEECH PATHOLOGY SUPERVISOR.[employer]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 Work Phone: [facility] 09-18-2022 15:12-0400 Heart rate 65 /min Breanna Stern SPEECH PATHOLOGY SUPERVISOR.[employer]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 Work Phone: [facility] 09-18-2022 15:12-0400 SaO2% (BldA) [Mass fraction] 99 % Breanna Stern SPEECH PATHOLOGY SUPERVISOR.[employer]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 Work Phone: [facility] 09-18-2022 15:12-0400 Systolic blood pressure 118 mm[Hg] Breanna Stern SPEECH PATHOLOGY SUPERVISOR.[employer]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 Work Phone: [facility] 07-29-2022 08:40-0400 Blood Pressure Location Rajni Lue [facility] 07-29-2022 08:40-0400 Diastolic blood pressure 86 mm[Hg] Rajni Lue [facility] 07-29-2022 08:40-0400 Heart rate 71 /min Rajni Lue [facility] 07-29-2022 08:40-0400 Systolic blood pressure 127 mm[Hg] Rajni Lue [facility] 07-22-2022 10:08-0400 Body height 167.6 cm Kasie Avalos MD Work Phone: [facility] 07-22-2022 10:08-0400 Body temperature 98.1 [degF] Kasie Avalos MD Work Phone: [facility] 07-22-2022 10:08-0400 Body weight 79.92 kg Kasie Avalos MD Work Phone: [facility] 07-22-2022 10:08-0400 Diastolic blood pressure 89 mm[Hg] Kasie Avalos MD Work Phone: [facility] 07-22-2022 10:08-0400 Heart rate 72 /min Kasie Avalos MD Work Phone: [facility] 07-22-2022 10:08-0400 SaO2% (BldA) [Mass fraction] 100 % Kasie Avalos MD Work Phone: [facility] 07-22-2022 10:08-0400 Systolic blood pressure 136 mm[Hg] Kasie Avalos MD Work Phone: [facility] 06-12-2022 10:00-0400 Body height 167.6 cm Aliyah Washburn PA-C Work Phone: [facility] 06-12-2022 10:00-0400 Body temperature 97.5 [degF] Aliyah Washburn PA-C Work Phone: [facility] 06-12-2022 10:00-0400 Body weight 84.37 kg Aliyah Washburn PA-C Work Phone: [facility] 06-12-2022 10:00-0400 Diastolic blood pressure 78 mm[Hg] Aliyah Washburn PA-C Work Phone: [facility] 06-12-2022 10:00-0400 Heart rate 68 /min Aliyah Washburn PA-C Work Phone: [facility] 06-12-2022 10:00-0400 Systolic blood pressure 123 mm[Hg] Aliyah Washburn PA-C Work Phone: [facility] 06-10-2022 17:43-0400 Diastolic blood pressure 74 mm[Hg] [facility] 06-10-2022 17:43-0400 Heart rate 65 /min [facility] 06-10-2022 17:43-0400 Mean blood pressure 90 mm[Hg] [facility] 06-10-2022 17:43-0400 Respiratory rate 16 /min [facility] 06-10-2022 17:43-0400 SaO2% (BldA) [Mass fraction] 100 % [facility] 06-10-2022 17:43-0400 Systolic blood pressure 122 mm[Hg] [facility] 06-10-2022 17:00-0400 Diastolic blood pressure 77 mm[Hg] [facility] 06-10-2022 17:00-0400 Heart rate 66 /min [facility] 06-10-2022 17:00-0400 Mean blood pressure 94 mm[Hg] [facility] 06-10-2022 17:00-0400 Systolic blood pressure 129 mm[Hg] [facility] 06-10-2022 16:00-0400 Heart rate 83 /min [facility] 06-10-2022 16:00-0400 Mean blood pressure 93 mm[Hg] [facility] 06-10-2022 16:00-0400 Systolic blood pressure 130 mm[Hg] [facility] 06-10-2022 12:32-0400 Body temperature 97.7 [degF] [facility] 06-10-2022 12:32-0400 Heart rate 88 /min [facility] 06-10-2022 12:32-0400 Respiratory rate 18 /min [facility] 03-06-2022 15:30-0500 Diastolic blood pressure 70 mm[Hg] Deacon Kat MD Work Phone: [facility] 03-06-2022 15:30-0500 Heart rate 67 /min Deacon Kat MD Work Phone: [facility] 03-06-2022 15:30-0500 Respiratory rate 16 /min Deacon Kat MD Work Phone: [facility] 03-06-2022 15:30-0500 SaO2% (BldA) [Mass fraction] 100 % Deacon Kat MD Work Phone: [facility] 03-06-2022 15:30-0500 Systolic blood pressure 105 mm[Hg] Deacon Kat MD Work Phone: [facility] 03-06-2022 13:00-0500 Body temperature 96.8 [degF] Deacon Kat MD Work Phone: [facility] 03-05-2022 09:33-0500 Body weight 89.81 kg Breanna Stern SPEECH PATHOLOGY SUPERVISOR.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 Work Phone: [facility] 02-04-2022 09:23-0500 Body height 167.[address] Work Phone: [facility] 02-04-2022 09:23-0500 Body weight 93.[address] Work Phone: [facility] 02-03-2022 14:55-0500 Body height 167.6 cm Breanna Stern SPEECH PATHOLOGY SUPERVISOR.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 Work Phone: [facility] 02-03-2022 14:55-0500 Body temperature 97 [degF] Breanna Stern SPEECH PATHOLOGY SUPERVISOR.[employer]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 Work Phone: [facility] 02-03-2022 14:55-0500 Body weight 93.44 kg Breanna Stern SPEECH PATHOLOGY SUPERVISOR.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 Work Phone: [facility] 02-03-2022 14:55-0500 Diastolic blood pressure 81 mm[Hg] Breanna Stern SPEECH PATHOLOGY SUPERVISOR.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 Work Phone: [facility] 02-03-2022 14:55-0500 Heart rate 76 /min Breanna Stern SPEECH PATHOLOGY SUPERVISOR.[employer]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 Work Phone: [facility] 02-03-2022 14:55-0500 SaO2% (BldA) [Mass fraction] 99 % Breanna Stern SPEECH PATHOLOGY SUPERVISOR.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 Work Phone: [facility] 02-03-2022 14:55-0500 Systolic blood pressure 128 mm[Hg] Breanna Stern SPEECH PATHOLOGY SUPERVISOR.[employer]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 Work Phone: [facility] 01-28-2022 08:41-0500 Body height 167.6 cm Pacc 2 Work Phone: [facility] 01-28-2022 08:41-0500 Body temperature 97.9 [degF] Pacc 2 Work Phone: [facility] 01-28-2022 08:41-0500 Body weight 94.8 kg Pacc 2 Work Phone: [facility] 01-28-2022 08:41-0500 Diastolic blood pressure 85 mm[Hg] Pacc 2 Work Phone: [facility] 01-28-2022 08:41-0500 Heart rate 65 /min Pacc 2 Work Phone: [facility] 01-28-2022 08:41-0500 Respiratory rate 16 /min Pacc 2 Work Phone: [facility] 01-28-2022 08:41-0500 SaO2% (BldA) [Mass fraction] 100 % Pacc 2 Work Phone: [facility] 01-28-2022 08:41-0500 Systolic blood pressure 131 mm[Hg] Pacc 2 Work Phone: [facility] 01-02-2022 11:06-0500 Body weight 92.99 kg Sabina Vacco SPEECH PATHOLOGY SUPERVISOR.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 Work Phone: [facility] 12-25-2021 10:10-0500 Diastolic blood pressure 76 mm[Hg] Britt Bradshaw MD Work Phone: [facility] 12-25-2021 10:10-0500 Heart rate 74 /min Britt Bradshaw MD Work Phone: [facility] 12-25-2021 10:10-0500 Respiratory rate 18 /min Britt Bradshaw MD Work Phone: [facility] 12-25-2021 10:10-0500 SaO2% (BldA) [Mass fraction] 100 % Britt Bradshaw MD Work Phone: [facility] 12-25-2021 10:10-0500 Systolic blood pressure 140 mm[Hg] Britt Bradshaw MD Work Phone: [facility] 12-25-2021 08:26-0500 Body height 167.6 cm Britt Bradshaw MD Work Phone: [facility] 12-25-2021 08:26-0500 Body temperature 98.1 [degF] Britt Bradshaw MD Work Phone: [facility] 12-25-2021 08:26-0500 Body weight 92.99 kg Britt Bradshaw MD Work Phone: [facility] 10-09-2021 15:44-0400 Body height 167.6 cm Sabina Vacco SPEECH PATHOLOGY SUPERVISOR.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 Work Phone: [facility] 10-09-2021 15:44-0400 Body weight 89.81 kg Sabina Vacco SPEECH PATHOLOGY SUPERVISOR.[employer]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 Work Phone: [facility] 08-30-2021 03:47-0400 Diastolic blood pressure 70 mm[Hg] Pablo Atwood DO Work Phone: [facility] 08-30-2021 03:47-0400 Systolic blood pressure 130 mm[Hg] Pablo Atwood DO Work Phone: [facility] 08-30-2021 03:46-0400 Body temperature 100.4 [degF] Pablo Atwood DO Work Phone: [facility] 08-30-2021 03:46-0400 Heart rate 107 /min Pablo Atwood DO Work Phone: [facility] 08-30-2021 03:46-0400 Respiratory rate 19 /min Pablo Atwood DO Work Phone: [facility] 08-30-2021 03:46-0400 SaO2% (BldA) [Mass fraction] 96 % Pablo Atwood DO Work Phone: [facility] 08-28-2021 07:54-0400 Body height 167.[address] Work Phone: [facility] 08-28-2021 07:54-0400 Body weight 90.[address] Work Phone: [facility] 08-17-2021 12:00-0400 Body height 167.64 cm Shanna June Other [employer] Other 08-17-2021 12:00-0400 Body mass index (BMI) [Ratio] 33.08 kg/m2 Shanna June Other [employer] Other 08-17-2021 12:00-0400 Body temperature 98.1 [degF] Shanna June Other [employer] Other 08-17-2021 12:00-0400 Body weight 92.99 kg Shanna June Other [employer] Other 08-17-2021 12:00-0400 Diastolic blood pressure 80 mm[Hg] Shanna June Other [employer] Other 08-17-2021 12:00-0400 Respiratory rate 18 /min Shanna June Other [employer] Other 08-17-2021 12:00-0400 SaO2% (BldA) [Mass fraction] 99 % Shanna June Other [employer] Other 08-17-2021 12:00-0400 Systolic blood pressure 137 mm[Hg] Shanna June Other [employer] Other 07-27-2021 14:25-0400 Respiratory rate 18 /min Angela Do MD Work Phone: [facility] 07-27-2021 14:03-0400 SaO2% (BldA) [Mass fraction] 98 % Angela Do MD Work Phone: [facility] 07-27-2021 13:27-0400 Diastolic blood pressure 44 mm[Hg] Angela Do MD Work Phone: [facility] 07-27-2021 13:27-0400 Systolic blood pressure 110 mm[Hg] Angela Do MD Work Phone: [facility] 07-27-2021 10:18-0400 Body mass index (BMI) [Ratio] 31.47 kg/m2 Angela Do MD Work Phone: [facility] 07-27-2021 10:18-0400 Body temperature 98.6 [degF] Angela Do MD Work Phone: [facility] 07-27-2021 10:18-0400 Body weight 88.45 kg Angela Do MD Work Phone: [facility] 07-27-2021 10:18-0400 Heart rate 71 /min Angela Do MD Work Phone: [facility] 03-31-2021 11:00-0500 Body height 167.64 cm Shanna Slade Other [employer] Other 03-31-2021 11:00-0500 Body mass index (BMI) [Ratio] 33.08 kg/m2 Shanna Slade Other [employer] Other 03-31-2021 11:00-0500 Body temperature 98 [degF] Shanna Slade Other [employer] Other 03-31-2021 11:00-0500 Body weight 92.99 kg Shanna Granadosault Other [employer] Other 03-31-2021 11:00-0500 Diastolic blood pressure 91 mm[Hg] Shanna Slade Other [employer] Other 03-31-2021 11:00-0500 Respiratory rate 18 /min Shanna Slade Other [employer] Other 03-31-2021 11:00-0500 SaO2% (BldA) [Mass fraction] 100 % Shanna Slade Other [employer] Other 03-31-2021 11:00-0500 Systolic blood pressure 142 mm[Hg] Shanna Slade Other [employer] Other 01-28-2021 12:00-0500 Body height 167.64 cm Shanna Slade Other [employer] Other 01-28-2021 12:00-0500 Body mass index (BMI) [Ratio] 33.08 kg/m2 Shanna June Other [employer] Other 01-28-2021 12:00-0500 Body temperature 98 [degF] Shanna June Other [employer] Other 01-28-2021 12:00-0500 Body weight 92.99 kg Shanna June Other [employer] Other 01-28-2021 12:00-0500 Diastolic blood pressure 92 mm[Hg] Shanna June Other [employer] Other 01-28-2021 12:00-0500 Respiratory rate 18 /min Shanna June Other [employer] Other 01-28-2021 12:00-0500 SaO2% (BldA) [Mass fraction] 100 % Shanna June Other [employer] Other 01-28-2021 12:00-0500 Systolic blood pressure 143 mm[Hg] Shanna June Other [employer] Other 12-17-2020 17:30-0400 Body height 167.64 cm Shanna June Other [employer] Other 12-17-2020 17:30-0400 Body mass index (BMI) [Ratio] 32.92 kg/m2 Shanna June Other [employer] Other 12-17-2020 17:30-0400 Body temperature 98.2 [degF] Shanna Granadosault Other [employer] Other 12-17-2020 17:30-0400 Body weight 92.53 kg Shanna June Other [employer] Other 12-17-2020 17:30-0400 Diastolic blood pressure 71 mm[Hg] Shanna June Other [employer] Other 12-17-2020 17:30-0400 Respiratory rate 18 /min Shanna June Other [employer] Other 12-17-2020 17:30-0400 SaO2% (BldA) [Mass fraction] 100 % Shanna June Other [employer] Other 12-17-2020 17:30-0400 Systolic blood pressure 117 mm[Hg] Shanna June Other [employer] Other 12-14-2020 15:07-0400 Body height 167.6 cm Shanna June SPEECH PATHOLOGY SUPERVISOR - EARTH SCIENCE FACULTY MEMBER Work Phone: [employer] Work Phone: 12-14-2020 15:07-0400 Body mass index (BMI) [Ratio] 32.77 kg/m2 Shanna June SPEECH PATHOLOGY SUPERVISOR - EARTH SCIENCE FACULTY MEMBER Work Phone: [employer] Work Phone: 12-14-2020 15:07-0400 Body temperature 98.8 [degF] Shanna June SPEECH PATHOLOGY SUPERVISOR - EARTH SCIENCE FACULTY MEMBER Work Phone: [employer] Work Phone: 12-14-2020 15:07-0400 Body weight 92.08 kg Shanna June SPEECH PATHOLOGY SUPERVISOR - EARTH SCIENCE FACULTY MEMBER Work Phone: [employer] Work Phone: 12-14-2020 15:07-0400 Diastolic blood pressure 90 mm[Hg] Shanna June SPEECH PATHOLOGY SUPERVISOR - EARTH SCIENCE FACULTY MEMBER Work Phone: [employer] Work Phone: 12-14-2020 15:07-0400 Heart rate 85 /min Shanna June SPEECH PATHOLOGY SUPERVISOR - EARTH SCIENCE FACULTY MEMBER Work Phone: [employer] Work Phone: 12-14-2020 15:07-0400 Respiratory rate 20 /min Shanna June SPEECH PATHOLOGY SUPERVISOR - EARTH SCIENCE FACULTY MEMBER Work Phone: [employer] Work Phone: 12-14-2020 15:07-0400 SaO2% (BldA) [Mass fraction] 100 % Shanna June SPEECH PATHOLOGY SUPERVISOR - EARTH SCIENCE FACULTY MEMBER Work Phone: [employer] Work Phone: 12-14-2020 15:07-0400 Systolic blood pressure 139 mm[Hg] Shanna June SPEECH PATHOLOGY SUPERVISOR - EARTH SCIENCE FACULTY MEMBER Work Phone: [employer] Work Phone: 07-02-2020 13:16-0400 Diastolic blood pressure 56 mm[Hg] Vaughn Ceja MD Work Phone: [employer] 07-02-2020 13:16-0400 Heart rate 71 /min Vaughn Ceja MD Work Phone: [employer] 07-02-2020 13:16-0400 Respiratory rate 18 /min Vaughn Ceja MD Work Phone: [employer] 07-02-2020 13:16-0400 SaO2% (BldA) [Mass fraction] 99 % Vaughn Ceja MD Work Phone: [employer] 07-02-2020 13:16-0400 Systolic blood pressure 165 mm[Hg] Vaughn Ceja MD Work Phone: [employer] 07-02-2020 12:44-0400 Body temperature 97.39 [degF] Vaughn Ceja MD Work Phone: [facility] 07-02-2020 12:35-0400 Body height 167.6 cm Vaughn Ceja MD Work Phone: [facility] 07-02-2020 12:35-0400 Body mass index (BMI) [Ratio] 37.12 kg/m2 Vaughn Ceja MD Work Phone: [facility] 07-02-2020 12:35-0400 Body weight 104.33 kg Vaughn Ceja MD Work Phone: [facility] 01-30-2020 17:34-0500 BP Diastolic 76 mm[Hg] [facility] 01-30-2020 17:34-0500 BP Systolic 139 mm[Hg] [facility] 01-30-2020 17:34-0500 Pulse (Heart Rate) 87 /min [facility] 01-30-2020 17:34-0500 Pulse Oximetry 100 % [facility] 01-30-2020 17:34-0500 Respiratory Rate 18 /min [facility] 01-30-2020 13:22-0500 [facility] 01-30-[facility] 13:16-0500 Body Temperature 97.81 [degF] 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) Start: 11-04-2023 End: 11-04-2023 Emergency department patient visit Ashutosh Valles Jose Ramon [facility] Start: 11-03-2023 End: 11-03-2023 [facility]ulatory [facility] Comment on above: Blood Management Start: 11-01-2023 End: 11-02-2023 Orders Only Diana Wood RD Gastroenterology Comment on above: Iron deficiency anem ia, unspecified iron deficiency anemia type (Primary Dx) Refill Request Multiple gastric ulc ers [K25.9] Start: 10-27-2023 End: 10-27-2023 ambulatory TINO MONAHAN Not Available Start: 10-25-2023 End: 10-25-2023 ambulatory MARCOS MORENO Not Available Start: 10-20-2023 End: 10-20-2023 ambulatory THOMAS M ANGELAAime Facility:[facility] Start: 10-20-2023 End: 10-20-2023 Follow-up encounter Breanna Stern OFFSHORE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 Work Phone: General Surgery Comment on above: S/P gastrointestinal surgery, follow-up exam (Primary Dx) Start: 10-20-2023 End: 10-20-2023 Telemedicine consultation with patient Breanna Stern APRN.OFFSHORE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 Work Phone: General Surgery Start: 10-15-2023 End: 10-15-2023 ambulatory DANYELL IBRAHIM Facility:[facility] Start: 10-13-2023 End: 10-13-2023 Patient encounter procedure Georgina Carrillo MD Work Phone: Gastroenterology Comment on above: Abnormal defecation (Primary Dx); S/P hysterectomy; Endometriosis; Constipation, unspecified constipation type; Hypoglycemia; Adrenal insufficiency (HCC); On total parenteral nutrition (TPN) Start: 10-13-2023 End: 10-13-2023 ambulatory Cgrt Dietitian Work Phone: Gastroenterology Start: 10-13-2023 End: 10-13-2023 Nutrition therapy Cgrt Dietitian Work Phone: Gastroenterology Comment on above: Nutrition Assessment Start: 10-12-2023 End: 10-13-2023 Chart abstracting Cgrt Dietitian Work Phone: Gastroenterology Start: 10-11-2023 End: 10-12-2023 Telephone encounter Mariela Spangler MD Work Phone: [facility] Comment on above: Consult Start: 10-10-2023 End: 10-12-2023 ambulatory RAYNA BILLINGSLEY Facility:[facility] Start: 10-08-2023 End: 10-08-2023 ambulatory Kasie Avalos MD Work Phone: Gastroenterology Comment on above: [place] Start: 10-08-2023 End: 10-08-2023 Telephone encounter Deacon Kat MD Work Phone: General Surgery Start: 10-07-2023 End: 10-07-2023 ambulatory DEACON KAT Facility:[facility] Start: 10-06-2023 End: 10-06-2023 [facility] [place] [id number] Work Phone: Pre Anesthesia Start: 10-06-2023 End: 10-06-2023 Admission to same day [place] [id number] Work Phone: Pre Anesthesia Comment on above: [...] Start: 10-06-2023 End: 10-06-2023 Preprocedural examination done [facility] Work Phone: [facility] Work Phone: Start: 10-06-2023 End: 10-06-2023 ambulatory THOMAS CALIX Facility:[facility] Start: 10-06-2023 Encounter for other preprocedural examination THOMAS ANGELAAime [facility] Start: 10-04-2023 End: 10-15-2023 Admission to same day surgery center Deacon Kat MD Work Phone: General Surgery Comment on above: Disability Start: 10-04-2023 End: 10-15-2023 ambulatory Deacon Kat MD Work Phone: General Surgery Start: 10-01-2023 End: 10-01-2023 ambulatory TINO MONAHNA Not Available Start: 09-28-2023 Refill Kasie Avalos MD Work Phone: Gastroenterology Comment on above: Med Change Request Start: 09-28-2023 End: 09-28-2023 [facility] Pablo Lebron PSYD Work Phone: Neurology Comment on above: ARSALAN (generalized anx iety disorder) (Primary Dx); Panic disorder without agoraphobia; Moderate recurrent major depression (HCC); Situational stress Start: 09-27-2023 End: 09-27-2023 ambulatory THOMAS CALIX Facility:[facility] Start: 09-22-2023 End: 09-22-2023 Emergency department patient visit THOMAS CALIX Facility:[facility] Start: 09-20-2023 End: 09-20-2023 ambulatory [facility] Facility:[facility] Start: 09-20-2023 End: 09-20-2023 Telemedicine consultation with patient Deacon Kat MD Work Phone: General Surgery Start: 09-20-2023 End: 09-20-2023 Admission to same day surgery center Deacon Kat MD Work Phone: General Surgery Comment on above: History of gastric b ypass (Primary Dx); Left upper quadrant abdominal pain Refill Request Start: 09-18-2023 End: 09-18-2023 Emergency department patient visit THOMAS CALIX Facility:[facility] Start: 09-17-2023 End: 09-17-2023 Emergency department patient visit SERENA STALEY Facility:[facility] Start: 09-12-2023 End: 09-12-2023 Emergency department patient visit CORIE CRAFT M.D. Facility:[facility] Start: 09-11-2023 End: 09-11-2023 Emergency department patient visit THOMAS CALIX Facility:[facility] Start: 09-09-2023 Admission to [facility] surgery center Deacon Kat MD Work Phone: General Surgery Comment on above: 10/20/2023 (Diagnostic Laparoscopy) Start: 09-09-2023 ambulatory Deacon sousa MD Work Phone: General Surgery Start: 09-09-2023 Patient encounter status Deacon Kat MD Work Phone: [facility] Start: 09-09-2023 End: 10-12-2023 Telephone encounter Deacon Kat MD Work Phone: General Surgery Comment on above: Schedule Surgery; Ca re Coordinator - Other Start: 09-08-2023 End: 09-08-2023 ambulatory KASIE AVALOS Facility:[facility] Start: 09-08-2023 End: 09-08-2023 Patient encounter procedure Kasie Avalos MD Work Phone: Gastroenterology Comment on above: Multiple gastric ulc ers (Primary Dx); LUQ pain; Gastroesophageal reflux disease with esophagitis without hemorrhage; Constipation, unspecified constipation type Start: 09-02-2023 Orders Only Kasie Avalos MD Work Phone: Gastroenterology Start: 09-01-2023 End: 09-01-2023 ambulatory TINO MONAHAN Not Available Start: 08-30-2023 End: 08-31-2023 ambulatory [facility] Facility:[facility] Start: 08-30-2023 End: 08-31-2023 Nursing evaluation [...] esophagitis present Start: 08-26-2023 End: 08-26-2023 ambulatory [facility] Facility:[facility] Start: 08-26-2023 End: 08-26-2023 Subsequent hospital [...] 08-21-2023 End: 08-21-2023 Emergency department patient visit EAR[employer] SCIENCE FACULTY MEMBER-Elroy Morrow Work Phone: [facility] Work Phone: Start: 08-18-2023 Telephone encounter Deacon shahid MD Work Phone: General Surgery Comment on above: Patient Question; Ca re Coordinator - Other Start: 08-14-2023 End: 08-14-2023 Emergency department patient visit EARTH SCIENCE FACULTY MEMBER-Elroy Zamoraab Work Phone: [facility] Work Phone: Start: 08-12-2023 Telephone encounter Radha Arzate Gastroenterology Comment on above: Education Of Patient /family; Reminder Call (08/26/23 appt confirmed) Start: 08-09-2023 End: 08-09-2023 ambulatory VIC RAMOS Facility:[facility] Start: 08-09-2023 End: 08-09-2023 Patient encounter procedure Vic Ramos MD Work Phone: Pain Management Comment on above: Neuralgia and neurit is (Primary Dx); Median arcuate ligament syndrome (HCC) Start: 08-07-2023 End: 08-08-2023 Evaluation and management of inpatient ANBAZBRENDEN PRAALFIEAKARAN Facility:[facility] Start: 08-05-2023 ambulatory Boogie Sandy Work Phone: Pain Management Comment on above: Ketamine nasal spray Medication Renewal Start: 08-04-2023 Telephone encounter Boogie Tompkins ud, MD Work Phone: Pain Management Comment on above: Medication Problem Start: 08-04-2023 End: 08-06-2023 Evaluation and management of inpatient THOMAS CALIX Facility:[facility] Start: 08-04-2023 End: 08-04-2023 ambulatory THOMAS CALIX Facility:[facility] Start: 08-04-2023 End: 08-04-2023 Patient encounter procedure Boogie Murguia MD Work Phone: Pain Management Comment on above: Chronic abdominal pa in (Primary Dx); Gastroesophageal reflux disease without esophagitis; Neuralgia and neuritis; Median arcuate ligament syndrome (HCC); S/P gastric bypass Start: 07-31-2023 End: 07-31-2023 Emergency department patient visit 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 Jaquan Cristhian Work Phone: [facility] Work Phone: Start: 07-30-2023 End: 07-31-2023 Emergency department patient visit THOMAS CALIX Facility:[facility] Start: 07-28-2023 End: 07-28-2023 ambulatory TINO MONAHAN Not Available Start: 07-19-2023 Orders Only Deacon sousa MD Work Phone: General Surgery Comment on above: Chronic nausea (Prim reji Dx); History of laparoscopic partial gastrectomy; History of sphincterotomy of sphincter of Oddi; Median arcuate ligament syndrome (HCC) Start: 07-17-2023 End: 07-20-2023 Evaluation and management of inpatient JAQUAN MORROW Facility:[facility] Start: 07-17-2023 End: 07-17-2023 Evaluation and management of inpatient 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 Jaquan Zamoraab Work Phone: [facility] [place] [address] Surgical Work Phone: Start: 07-15-2023 End: 07-15-2023 ambulatory JAQUAN ORTEGA CRISTHIAN Facility:[facility] Start: 07-13-2023 Telephone encounter Natalie Jameson LPN Gastroenterology Comment on above: Appointment Start: 07-13-2023 ambulatory PA-C OLGA Dykes acility:[facility] [place] Start: 07-09-2023 End: 07-09-2023 [facility] Pablo Lebron PSYD Work Phone: Neurology Comment on above: ARSALAN (generalized anx iety disorder) (Primary Dx); Panic disorder without agoraphobia; Moderate recurrent major depression (HCC) Start: 07-06-2023 End: 07-06-2023 Emergency department patient visit JAQUAN MORROW Facility:[facility] Start: 07-06-2023 End: 07-06-2023 ambulatory Francisco J Steve MD Work Phone: Urology Start: 07-06-2023 End: 07-06-2023 Patient encounter procedure Francisco J Steve MD Work Phone: Urology Comment on above: Urinary frequency (P rimary Dx); Urgency of urination Start: 06-29-2023 End: 07-05-2023 ambulatory DAVID VALADEZ [facility] Start: 06-29-2023 End: 06-29-2023 Subsequent hospital visit by physician Sheridan Mederos [facility] Start: 06-29-2023 End: 07-03-2023 Evaluation and management of inpatient David Valadez DO Work Phone: [address] Comment on above: Epigastric pain (Loretta alla Dx); Median arcuate ligament syndrome (CMS-HCC); Nausea and vomiting, unspecified vomiting type; Other specified hyperalimentation; Generalized abdominal pain Start: 06-29-2023 End: 06-29-2023 ambulatory MARCOS ZURDO Not Available Start: 06-22-2023 End: 06-22-2023 Office outpatient visit 10 minutes Sherry Magaña MD Work Phone: [facility] Comment on above: Median arcuate ligam ent syndrome (CMS-HCC) (Primary Dx) Start: 06-22-2023 End: 06-22-2023 ambulatory SHERRY MAGAÑA [facility] Start: 06-18-2023 End: 06-18-2023 Emergency department patient visit JAQUAN MORROW Facility:[facility] Start: 06-18-2023 End: 06-18-2023 ambulatory JAQUAN MORROW Facility:[facility] Start: 06-18-2023 End: 06-18-2023 Patient encounter procedure Breanna Stern APRN.CNP Work Phone: General Surgery Comment on above: Sudden onset of sharon re abdominal pain (Primary Dx); Nausea and vomiting, unspecified vomiting type; PEG (percutaneous endoscopic gastrostomy) status (HCC) Start: 06-17-2023 Telephone encounter May Ramey APRN.CNP Work Phone: Pain Management Comment on above: Appointment Start: 06-17-2023 End: 06-30-2023 ambulatory DATA VIRTUALIZATION CONSULTANT Jaquan L Cristhian Facility:[id number] Start: 06-15-2023 Telephone encounter Deacon shahid MD Work Phone: General Surgery Comment on above: Patient Update; Umm ent Question Start: 06-14-2023 Telephone encounter Stephanie Sumner DO Work Phone: [facility] Start: 06-14-2023 End: 06-14-2023 ambulatory DATA VIRTUALIZATION CONSULTANT Jaquan L Cristhian Facility:[facility] Start: 06-10-2023 End: 06-15-2023 ambulatory DATA VIRTUALIZATION CONSULTANT Jaquan L Cristhian Facility:[id number] Start: 06-09-2023 End: 06-09-2023 [facility] Pablo Lebron PSYD Work Phone: Neurology Comment on above: ARSALAN (generalized anx iety disorder) (Primary Dx); Panic disorder without agoraphobia; Moderate recurrent major depression (HCC) Start: 06-06-2023 End: 06-09-2023 Evaluation and management of inpatient CHETNA ACEVEDOOfelia Facility:[facility] Start: 06-03-2023 End: 06-03-2023 ambulatory JAQUANPO ZAMORAAB Facility:[facility] Start: 06-02-2023 End: 06-02-2023 ambulatory DATA VIRTUALIZATION CONSULTANT Jaquan L Cristhian Facility:[facility] Start: 06-01-2023 End: 06-01-2023 ambulatory Vic Ramos MD Work Phone: Pain Management Comment on above: Neuralgia and neurit is (Primary Dx); Gastroesophageal reflux disease without esophagitis; Median arcuate ligament syndrome (HCC); S/P gastric bypass Start: 06-01-2023 End: 06-01-2023 Telemedicine consultation with patient Vic Ramos MD Work Phone: [facility] Start: 05-31-2023 End: 06-09-2023 ambulatory DATA VIRTUALIZATION CONSULTANT Jaquan Morrow Facility:CD:[id number] Start: 05-30-2023 End: 05-31-2023 Emergency department patient visit 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 Jaquan Morrow Work Phone: [facility] Work Phone: Start: 05-30-2023 Telephone encounter Deacon shahid MD Work Phone: General Surgery Start: 05-28-2023 End: 05-28-2023 Refill Kasie Avalos MD Work Phone: Gastroenterology Comment on above: Refill Request Medication Problem Start: 05-25-2023 End: 05-28-2023 Evaluation and management of inpatient DEACON KAT Facility:[facility] Start: 05-24-2023 Telephone encounter Deacon shahid MD Work Phone: General Surgery Comment on above: Patient Education; C are Coordinator - Other Start: 05-24-2023 End: 05-26-2023 ambulatory DATA VIRTUALIZATION CONSULTANT Jaquan Morrow Facility:[id number] Start: 05-20-2023 End: 05-20-2023 Emergency department patient visit SYLVAIN NICKERSON Facility:[facility] Start: 05-19-2023 End: 05-19-2023 ambulatory DATA VIRTUALIZATION CONSULTANT Jaquan L Cristhian Facility:[facility]fs[facility] Start: 05-18-2023 Telephone encounter Deacon shahid MD Work Phone: General Surgery Comment on above: Received Outside Med ical Records Start: 05-18-2023 End: 05-22-2023 Evaluation and management of inpatient DEACON KAT Facility:[facility] Start: 05-17-2023 End: 05-17-2023 ambulatory Deacon Kat MD Work Phone: General Surgery Comment on above: Nausea and vomiting, unspecified vomiting type (Primary Dx) Start: 05-17-2023 End: 05-17-2023 Telemedicine consultation with patient Deacon Kat MD Work Phone: [facility] Start: 05-17-2023 End: 05-17-2023 Emergency department patient visit Ashutosh Albright [facility] Start: 05-17-2023 End: 05-19-2023 ambulatory DATA VIRTUALIZATION CONSULTANT Jaquan L Cristhian Facility::[id number] Start: 05-12-2023 End: 05-14-2023 ambulatory Jon Rivera [facility] Start: 05-12-2023 End: 05-14-2023 Observation Moncho Trejo [facility] Start: 05-11-2023 End: 05-11-2023 Emergency department patient visit Mateusz Garcia [facility] Start: 05-10-2023 Telephone encounter Deacon shahid MD Work Phone: General Surgery Comment on above: Patient Question Start: 05-10-2023 End: 05-10-2023 ambulatory DATA VIRTUALIZATION CONSULTANT Jaquan L Cristhian Facility: [facility] Start: 05-09-2023 End: 05-09-2023 Emergency department patient visit Mateusz Garcia [facility] Start: 05-07-2023 Telephone encounter Santa Hart RN Ambulatory Surgery Comment on above: Appointment (Cancel EGD) Start: 05-06-2023 End: 05-06-2023 Emergency department patient visit Mateusz Garcia [facility] Start: 04-30-2023 End: 04-30-2023 ambulatory DATA VIRTUALIZATION CONSULTANT Jaquan L Cristhian Facility:[facility] Start: 04-28-2023 End: 04-28-2023 ambulatory JAQUAN SHANNON CRISTHIAN Facility:[facility] Start: 04-28-2023 End: 04-28-2023 Patient encounter procedure Kasie Avalos MD Work Phone: Gastroenterology Comment on above: Gastroesophageal ref lux disease, unspecified whether esophagitis present (Primary Dx); Constipation, unspecified constipation type Start: 04-20-2023 End: 04-20-2023 Office outpatient visit 10 minutes Sherry Magaña MD Work Phone: [facility] Comment on above: Median arcuate ligam ent syndrome (CMS/HCC) (Primary Dx) Start: 04-20-2023 End: 04-20-2023 ambulatory [facility] Start: 04-07-2023 End: 04-07-2023 Postop follow up visit related to original px Sherry Magaña MD Work Phone: [facility] [facility] Comment on above: Median arcuate ligam ent syndrome (CMS/HCC) (Primary Dx) Start: 04-07-2023 End: 04-07-2023 ambulatory [facility] Start: 04-07-2023 End: 04-07-2023 Admission to same day surgery center Deacon Kat MD Work Phone: Endocrinology BMI Comment on above: Bariatric surgery st atus (Primary Dx); Dietary zinc deficiency; Vitamin D deficiency Start: 04-07-2023 End: 04-07-2023 ambulatory Deacon Kat Facility:[facility] Start: 04-07-2023 End: 04-07-2023 Telemedicine consultation with patient Deacon Kat MD Work Phone: [facility] Start: 04-06-2023 End: 04-06-2023 Emergency department patient visit PAO Morrow Work Phone: [facility] Work Phone: Start: 04-02-2023 End: 04-02-2023 Emergency department patient visit Ashutosh Albright [facility] Start: 03-24-2023 End: 03-24-2023 ambulatory DATA VIRTUALIZATION CONSULTANT Jaquan L Cristhian Facility:[facility] Afsaneh suarez Start: 03-16-2023 End: 03-20-2023 Evaluation and management of inpatient Melisa Barker MD Work Phone: [facility] Comment on above: Abdominal pain (Prim reji Dx); Nausea and vomiting, unspecified vomiting type; History of gastric bypass; Median arcuate ligament syndrome (CMS/HCC) Start: 03-16-2023 End: 03-16-2023 Emergency department patient visit Earnest Jett [facility] Start: 03-15-2023 End: 03-15-2023 Emergency department patient visit Earnest Jett [facility] Start: 03-05-2023 End: 03-10-2023 Evaluation and management of inpatient Sherry Magaña MD Work Phone: [facility] Comment on above: Median arcuate ligam ent syndrome (CMS/HCC) (Primary Dx) Start: 03-02-2023 End: 03-03-2023 ambulatory NO ASSIGNED PCP GENERIC PROVIDER [facility] Start: 03-02-2023 End: 03-02-2023 ambulatory NO ASSIGNED PCP GENERIC PROVIDER [facility] Start: 03-02-2023 End: 03-02-2023 Encounter for other preprocedural examination NO ASSIGNED PCP GENERIC PROVIDER [facility] Start: 02-13-2023 End: 02-13-2023 Emergency department patient visit 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 Jaquan Morrow Work Phone: [facility] Work Phone: Start: 02-12-2023 End: 02-12-2023 Emergency department patient visit NO ASSIGNED PCP GENERIC PROVIDER [facility] Start: 02-10-2023 End: 02-10-2023 ambulatory JAQUAN L CRISTHIAN Facility:[facility] Start: 02-03-2023 End: 02-03-2023 ambulatory DATA VIRTUALIZATION CONSULTANT Jaquan L Cristhian Facility:[facility] Start: 01-15-2023 Telephone encounter Deacon shahid MD Work Phone: Endocrinology BMI Comment on above: Patient Question; Henny mccormick Update Start: 01-14-2023 End: 01-14-2023 ambulatory Vic Ramos MD Work Phone: Pain Management Comment on above: Waitlist Start: 01-13-2023 End: 01-13-2023 Emergency department patient visit NO ASSIGNED PCP GENERIC PROVIDER [facility] Start: 01-11-2023 Orders Only Vic Conner [...] with patient Vic Ramos MD Work Phone: [facility] Start: 01-06-2023 Telephone encounter Vic saldana MD Work Phone: Pain Management Comment on above: Appointment Start: 12-31-2022 End: 12-31-2022 Emergency department patient visit Mateusz Garcia [facility] Start: 12-29-2022 End: 12-29-2022 ambulatory DATA VIRTUALIZATION CONSULTANT Jaquan L Cristhian Facility:[facility] Start: 12-28-2022 Telephone encounter Deacon shahid MD Work Phone: General Surgery Comment on above: Patient Update; Orde rs Start: 12-21-2022 End: 12-21-2022 ambulatory SHERRY MAGAÑA [facility] Start: 12-14-2022 End: 12-14-2022 ambulatory Deacon Kat MD Work Phone: Endocrinology BMI Comment on above: Worsening Symptoms S evere Abdominal pain, unsp ecified abdominal location (Primary Dx) Start: 12-14-2022 End: 12-15-2022 Emergency department patient visit JAQUAN MORROW [facility] Start: 12-14-2022 End: 12-14-2022 Telemedicine consultation with patient Deacon Kat MD Work Phone: [facility] Start: 12-09-2022 ambulatory DATA VIRTUALIZATION CONSULTANT Jaquan Morrow Facil ity:[facility] [place] Start: 12-06-2022 End: 12-09-2022 Evaluation and management of inpatient JAQUAN MORROW Facility:[facility] Start: 12-04-2022 End: 12-04-2022 Patient encounter procedure Agustin Zamorano MD Work Phone: General Surgery Comment on above: Generalized abdomina l pain (Primary Dx) Start: 12-04-2022 End: 12-04-2022 ambulatory AGUSTIN ZAMORANO Facility:[facility] Start: 12-03-2022 Telephone encounter Oliva Dobbs RN General Surgery Start: 12-01-2022 Telephone encounter Deacon shahid MD Work Phone: Endocrinology BMI Comment on above: Patient Update Start: 12-01-2022 End: 12-01-2022 ambulatory Lokesh Terry Facility:[facility] Afsaneh erick Start: 11-27-2022 End: 12-03-2022 Evaluation and management of inpatient CAMDEN R MICHAEL [facility] Start: 11-26-2022 ambulatory DEACON KAT Facilit y:[facility] Start: 11-26-2022 End: 11-26-2022 Subsequent hospital visit by physician Jing/ [facility] Work Phone: CARDIOVASCULAR TESTING Comment on above: Chronic nausea [R11. 0] Start: 11-26-2022 End: 11-26-2022 ambulatory JAQUAN MORROW Facility:[facility] Start: 11-25-2022 Telephone encounter [facility] [place] Work Phone: Chronic Care Start: 11-25-2022 End: 11-25-2022 ambulatory DATA VIRTUALIZATION CONSULTANT Jaquan L Cristhian Facility:[facility] Afsaneh suarez Start: 11-23-2022 Telephone encounter Deacon shahid MD Work Phone: Endocrinology BMI Comment on above: Patient Update Start: 11-22-2022 End: 11-23-2022 ambulatory STEVE GONZALEZI [facility] Start: 11-17-2022 End: 11-17-2022 ambulatory Deacon Kat MD Work Phone: Endocrinology BMI Comment on above: On-Call Surgeon - Se nt to ER Start: 11-16-2022 End: 11-17-2022 Refill Deacon Kat MD Work Phone: Endocrinology BMI Start: 11-16-2022 End: 11-16-2022 Lab Drop off Jaquan L Cristhian [facility] Start: 11-14-2022 ambulatory Deacon sousa MD Work Phone: [facility] Start: 11-14-2022 Nutrition therapy Deacon turner MD Work Phone: Endocrinology BMI Comment on above: IV Nutrition Start: 11-13-2022 End: 11-13-2022 ambulatory PABLO Sandy [facility] Facility:[facility] Start: 11-11-2022 End: 11-12-2022 ambulatory JAQUAN SHANNON CRISTHIAN Facility:[facility] Start: 11-10-2022 End: 11-10-2022 ambulatory JAQUAN SHANNON CRISTHIAN Facility:[facility] Start: 11-09-2022 Telephone encounter Deacon shahid MD Work Phone: Endocrinology BMI Comment on above: Surgery Rescheduled Start: 11-06-2022 ambulatory Agustin Sheets RT(R) [facility] Radiology Molecular Comment on above: Radiology NM Start: 11-06-2022 Patient encounter procedure Agustin Sheets RT(R) [facility] Start: 11-06-2022 Telephone encounter Deacon shahid MD Work Phone: Endocrinology BMI Comment on above: Patient Update Start: 11-05-2022 End: 11-08-2022 ambulatory ALBERT CARPENTERA Facility:[facility] Start: 11-04-2022 End: 11-04-2022 Patient encounter procedure Deacon Kat MD Work Phone: Endocrinology BMI Comment on above: Nausea (Primary Dx); RUQ pain; History of cholecystectomy Dehydration (Primary Dx); RUQ pain Right knee pain, uns pecified chronicity (Primary Dx) Start: 11-04-2022 End: 11-04-2022 ambulatory Rheu Chair 5 Jeanne Work Phone: Infusion Start: 11-04-2022 ambulatory DEACON KAT Facilit y:[facility] Start: 11-04-2022 End: 11-04-2022 Subsequent hospital visit by physician [facility] Work Phone: [facility] Radiology Ultrasound Comment on above: Nausea [R11.0] Start: 11-04-2022 End: 11-04-2022 ambulatory Deacon Kat Facility:[facility] Start: 11-02-2022 Refill Haroon ahumada APRN.OFFSHORE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 Work Phone: Neurology Start: 11-02-2022 End: 11-02-2022 Emergency department patient visit DIMITRI WALKER [facility] Start: 11-02-2022 End: 11-02-2022 Emergency department patient visit Dimitri Walker MD Work Phone: [facility] Emergency Department Start: 11-01-2022 ambulatory Deacon sousa MD Work Phone: Endocrinology BMI Comment on above: Worsening Symptoms Problem Start: 10-31-2022 Refill Breanna Stern APRN.OFFSHORE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 Work Phone: General Surgery Comment on above: Refill Request Start: 10-31-2022 End: 10-31-2022 Emergency department patient visit WALLY Lesia [facility] Start: 10-31-2022 End: 10-31-2022 Emergency department patient visit Jalyn Suresh DO Work Phone: [facility] ED Comment on above: Back strain, initial encounter (Primary Dx) Start: 10-27-2022 End: 10-27-2022 ambulatory JACKSON ANDERSON [facility] Start: 10-25-2022 End: 10-28-2022 ambulatory RAYNA BILLINGSLEY [facility] Start: 10-24-2022 ambulatory Deacon sousa MD Work Phone: Endocrinology BMI Comment on above: Symptoms Start: 10-23-2022 End: 10-23-2022 Emergency department patient visit [place] [facility] Start: 10-21-2022 End: 10-21-2022 Emergency department patient visit JAQUAN ORTEGA [facility] Facility:[facility] Start: 10-20-2022 Telephone encounter Deacon shahid MD Work Phone: General Surgery Comment on above: Patient Question; Na usea & Vomiting Start: 10-20-2022 End: 10-20-2022 Emergency department patient visit Earnest Jett [facility] Start: 10-19-2022 ambulatory Breanna Stern APRN.CNP Work Phone: General Surgery Comment on above: Worsening Symptoms Start: 10-19-2022 End: 10-19-2022 Emergency department patient visit Earnest Jett [facility] Start: 10-18-2022 Emergency department patient visit JAQUAN [facility] Facility:[facility] Start: 10-17-2022 End: 10-17-2022 Emergency department patient visit WALLY Lesia [facility] Start: 10-15-2022 Refill Kasie Avalos MD Work Phone: Gastroenterology Comment on above: Refill Request Start: 10-05-2022 End: 10-05-2022 [facility] Pablo Lebron PSYD Work Phone: Neurology Comment on above: ARSALAN (generalized anx iety disorder) (Primary Dx); Panic disorder without agoraphobia; Moderate recurrent major depression (HCC) Start: 09-28-2022 End: 09-28-2022 ambulatory Xiomara Zhou DADA Work Phone: Endocrinology BMI Comment on above: Postoperative malabs orption (Primary Dx); S/P gastric bypass; Overweight (BMI 25.0-29.9); Dietary counseling and surveillance Start: 09-28-2022 End: 09-28-2022 Telemedicine consultation with patient Xiomara Zhou DADA Work Phone: [facility] Start: 09-21-2022 End: 09-21-2022 [facility] Pablo Lebron [facility] Work Phone: Neurology Comment on above: ARSALAN (generalized anx iety disorder) (Primary Dx); Panic disorder without agoraphobia; Moderate recurrent major depression (HCC) Start: 09-18-2022 End: 09-18-2022 Patient encounter procedure Breanna Stern APRN.[facility] Work Phone: General Surgery Comment on above: Encounter for surgic al aftercare following surgery of digestive system (Primary Dx); Impaired intestinal absorption; Esophageal dysphagia; Gastroesophageal reflux disease, unspecified whether esophagitis present; S/P bariatric surgery Start: 08-06-2022 ambulatory Kasie Avalos MD Work Phone: Gastroenterology Comment on above: Medication Coverage Start: 07-29-2022 End: 07-29-2022 Patient encounter procedure Rajni Rouse [facility] Start: 07-28-2022 End: 07-28-2022 Patient encounter [...] 07-20-2022 Lab Drop off Jaquan Alex Morrow [facility] Start: 06-18-2022 End: 06-18-2022 ambulatory Aliyah Washburn PA-C Work Phone: Rheumatology [facility] [place] Comment on above: Encounter to discuss test results (Primary Dx); NO SHOW Start: 06-18-2022 End: 06-18-2022 Telemedicine consultation with patient Aliyah Washburn PA-C Work Phone: [facility] Start: 06-12-2022 End: 06-12-2022 Patient encounter procedure Aliyah Washburn PA-C Work Phone: [facility] Comment on above: Polyarthralgia (Prim reji Dx); Malaise and fatigue; Subjective fever; S/P laparoscopic sleeve gastrectomy; History of syncope; History of adrenal insufficiency; Hypothyroidism, unspecified type Start: 06-11-2022 End: 07-24-2022 Pre-admission assessment Rui Joyner [facility] Start: 06-10-2022 End: 06-10-2022 Emergency department patient visit Ashutosh Albright [facility] Start: 06-09-2022 End: 06-09-[address] DOCTOR CARRERA Facility:[facility] Start: 05-22-2022 End: 05-23-[address] WALLY FOLEY . Facility:[facility] Start: 03-30-2022 ambulatory Breanna Stern APRN.OFFSHORE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 Work Phone: [facility] Start: 03-30-2022 Patient encounter procedure Breanna tSern APRN.OFFSHORE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 Work Phone: General Surgery Comment on above: Cancel Appointment C annot Reach Anyone Start: 03-06-2022 End: 03-06-2022 Subsequent hospital visit by physician Deacon Kat MD Work Phone: [facility] Endoscopy - ENDO Comment on above: Esophageal dysphagia [R13.19] Start: 03-05-2022 Telephone encounter Li márqeuz RN Work Phone: Endocrinology BMI Comment on above: EGD Instructions Start: 03-05-2022 End: 03-05-2022 ambulatory Breanna Stern APRN.OFFSHORE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 Work Phone: General Surgery Comment on above: Esophageal dysphagia (Primary Dx); S/P gastric bypass; Postoperative malabsorption Start: 03-05-2022 End: 03-05-2022 Telemedicine consultation with patient Breanna Stern APRN.OFFSHORE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 Work Phone: [facility] Start: 03-02-2022 End: 03-03-[address] WALLY FOLEY . Facility:[facility] Start: 02-17-2022 End: 02-18-[address] WALLY FOLEY . Facility:[facility] Start: 02-13-2022 End: 02-13-2022 Patient encounter procedure Kuldip Yosuif MD Work Phone: [facility] Comment on above: Acetabular labrum te ar, right, subsequent encounter (Primary Dx) Start: 02-05-2022 Orders Only Deacon sousa MD Work Phone: Endocrinology BMI Comment on above: Postoperative pain Start: 02-04-2022 ambulatory Deacon sousa MD Work Phone: [facility] Start: 02-04-2022 Follow-up encounter Deacon shahid MD Work Phone: Endocrinology BMI Comment on above: Surgery Follow-Up Start: 02-04-2022 End: 02-04-2022 Admission to same day surgery center Nahed Acevedop RD Work Phone: Nutrition Therapy Comment on above: S/P gastric surgery (Primary Dx); Dietary counseling Start: 02-04-2022 End: 02-04-2022 Telemedicine consultation with patient Nahed Tamez RD Work Phone: [facility] Start: 02-03-2022 End: 02-03-2022 Patient encounter procedure Breanna Stern SLIM.OFFSHORE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 Work Phone: General Surgery Comment on above: [...] Admission to establishment Pacc 2 Work Phone: [facility] Start: 01-28-2022 End: 01-28-2022 ambulatory Pacc [...] p. GJ revision) Start: 01-02-2022 End: 01-02-2022 [facility] Sabina Joy SPEECH PATHOLOGY SUPERVISOR.OFFSHORE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 Work Phone: General Surgery Comment on above: [...] Kat Start: 11-18-2021 Patient Update Breanna Merlin SPEECH PATHOLOGY SUPERVISOR.OFFSHORE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 Work Phone: Endocrinology BMI Comment on above: Orders (pH Impedence ) Start: 11-17-2021 End: 11-17-2021 Telemedicine consultation with patient Deacon Kat MD Work Phone: [facility] Start: 11-17-2021 End: 11-17-2021 ambulatory Deacon Kat MD Work Phone: Endocrinology BMI Comment on above: Gastroesophageal ref lux disease without esophagitis (Primary Dx) Refill Request; Refi ll Request Start: 10-27-2021 End: 10-28-[address] WALLY FOLEY . Facility:[facility] Start: 10-21-2021 Telephone encounter Kuldip mckeon MD Work Phone: [facility] Comment on above: Appointment Start: 10-09-2021 End: 10-09-2021 [facility] Sabina Joy SPEECH PATHOLOGY SUPERVISOR.OFFSHORE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 Work Phone: General Surgery Comment on above: Gastroesophageal ref lux disease, unspecified whether esophagitis present (Primary Dx); Bariatric surgery status; Weight disorder; Class 1 obesity with serious comorbidity and body mass index (BMI) of 31.0 to 31.9 in adult, unspecified obesity type; S/P laparoscopic sleeve gastrectomy; Dietary counseling and surveillance Start: 10-08-2021 ambulatory Kuldip Yousif MD Work Phone: [facility] Start: 10-08-2021 Patient encounter procedure Kuldip Yousif MD Work Phone: [facility] Comment on above: Appointment Time Tod ay Start: 10-04-2021 End: 10-05-[address] WALLY FOLEY . Facility:[facility] Start: 08-30-2021 End: 08-30-2021 Emergency department patient visit Pablo Atwood DO Work Phone: [facility] ED Comment on above: Dental infection (Pr imary Dx) Start: 08-29-2021 End: 08-29-2021 ambulatory Justine Shabazz PA-C Work Phone: [facility] Comment on above: Tear of right acetab ular labrum, subsequent encounter (Primary Dx) Start: 08-29-2021 End: 08-29-2021 Telemedicine consultation with patient Justine Johnson Mele QUIROZ Work Phone: [facility] [address] Start: 08-28-2021 Refill Justine Serranoashia ardon PA-C Work Phone: [facility] Comment on above: Refill Request Start: 08-28-2021 End: 08-28-2021 ambulatory Xiomara Zhou DADA Work Phone: General Surgery Comment on above: S/P laparoscopic sle dee dee gastrectomy (Primary Dx); Obesity, Class I, BMI 30-34.9; Dietary counseling and surveillance Start: 08-28-2021 End: 08-28-2021 Telemedicine consultation with patient Xiomara Zhou RD Work Phone: [facility] Start: 08-25-2021 Encounter for genera l adult medical examination without abnormal findings SHANNA JUNE [facility] Start: 08-24-2021 ambulatory Deacon sousa MD Work [...] 08-17-2021 End: 08-17-2021 ambulatory Shanna June Other [employer] Other Start: 08-17-2021 Office outpatient vi sit 15 minutes Shanna June [facility] Start: 08-14-2021 Refill Justine Serranoj ac PA-C Work Phone: [facility] Comment on above: Refill Request Start: 08-01-2021 End: 08-01-2021 ambulatory Justine Johnson Elizabethc PA-C Work Phone: [facility] Comment on above: Tear of right acetab ular labrum, subsequent encounter (Primary Dx) Start: 08-01-2021 End: 08-01-2021 Telemedicine consultation with patient Justine Serranogenec PA-C Work Phone: [facility] [address] Start: 07-30-2021 End: 07-30-[address] MARCOS MORENO . Facility:[facility] Start: 07-28-2021 ambulatory Justine Johnson Maggiej ac PA-C Work Phone: [facility] [address] Start: 07-28-2021 Patient encounter procedure Justine Johnson Elizabethc PA-C Work Phone: [facility] Comment on above: Virtual Appointment Start: 07-27-2021 End: 07-27-2021 Emergency department patient visit Angela Do MD Work Phone: [facility] ED Comment on above: Generalized abdomina l pain (Primary Dx) Start: 07-14-2021 ambulatory Justine Johnson Maggiej ac PA-C Work Phone: [facility] Comment on above: Medication Start: 07-11-2021 End: 08-26-[address] DOCTOR CARRERA Facility:[facility] Start: 07-04-2021 End: 07-04-2021 ambulatory Justine Johnson Elizabethc PA-C Work Phone: [facility] Comment on above: Tear of right acetab ular labrum, subsequent encounter (Primary Dx) Start: 07-04-2021 End: 07-04-2021 Telemedicine consultation with patient Justine Serranogenec PA-C Work Phone: [facility] [address] Start: 06-23-2021 Admission to [facility] surgery center Jace Duarte AT Work Phone: [facility] Comment on above: Schedule Surgery Start: 06-23-2021 ambulatory Jace Lara ck AT Work Phone: [facility] [address] Start: 06-18-2021 End: 06-18-2021 Patient encounter procedure Kuldip Yousif MD Work Phone: [facility] Comment on above: Acetabular labrum te ar, right, initial encounter (Primary Dx) Start: 06-02-2021 ambulatory LUCIE MORA Facmichael lity:[facility] Start: 06-02-2021 End: 06-02-2021 Office outpatient visit 15 minutes Lucie Mora MD Work Phone: [facility] Comment on above: 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) Start: 04-02-2021 End: 04-02-2021 ambulatory Shanna June Other [employer] Other Start: 04-02-2021 Telephone encounter Shanna hooks [facility] Start: 03-31-2021 End: 03-31-2021 ambulatory Shannasada June Other [employer] Other Start: 03-31-2021 Office outpatient vi sit 15 minutes Shanna June [facility] Start: 03-10-2021 End: 03-10-2021 ambulatory Shannasada June Other [employer] Other Start: 03-10-2021 Telephone encounter Shanna hooks [facility] [employer] [facility] [facility] Start: 01-28-2021 End: 01-28-2021 ambulatory Shannasada June Other [employer] Other Start: 01-28-2021 Office outpatient vi sit 15 minutes Shannasada June [facility] Start: 12-17-2020 End: 12-17-2020 ambulatory Shanna June Other [employer] Other Start: 12-17-2020 Encounter for genera l adult medical examination without abnormal findings Shanna June [facility] Start: 12-17-2020 Periodic preventive med est patient 18-39 yrs Shanna June [facility] Start: 12-14-2020 End: 12-14-2020 Emergency department patient visit Shanna June SPEECH PATHOLOGY SUPERVISOR - EARTH SCIENCE FACULTY MEMBER Work Phone: [facility] ED Comment on above: Contusion of right t humb without damage to nail, initial encounter (Primary Dx) Start: 12-09-2020 ambulatory LUCIE MORA Facmichael lity:[facility] Start: 07-02-2020 End: 07-02-2020 Emergency department patient visit Vaughn Ceja MD Work Phone: [facility] Emergency Department Start: 01-30-2020 End: 01-30-2020 Emergency department patient visit Agustin Valles Sj Work Phone: [facility] Emergency Department Start: 09-25-2019 End: 08-04-2023 Preprocedural examination done Kuldip Yousif MD Work Phone: [facility] Work Phone: Start: 09-10-2017 End: 09-11-2017 Patient encounter DEFAULT PHYSICIAN Facility:[facility] Procedures Date Procedure Procedure Detail Performing Clinician Start: 11-01-2023 TPN FORMULA FLOW PRESCRIPTION Ccf Provid er Start: 11-01-2023 SURGICAL PATHOLOGY Chichi Miller MD Work Phone: Start: 11-01-2023 Gluc bld gluc mntr dev cleared fda spec home use Stephanie Telerman SPEECH PATHOLOGY SUPERVISOR.PACKAGE CENTER SUPERVISOR Work Phone: Start: 11-01-2023 Esophagoscp rig transoral hypopharynx crv juanoph Kasie Avalos MD Work Phone: Start: 08-26-2023 Esophagoscp rig transoral hypopharynx crv esoph Kasie Rouphael MD Work Phone: Start: 08-21-2023 Computed tomography of abdomen and pelvis with contrast 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 Jaquan Zamoraab Work Phone: Start: 08-14-2023 Computed tomography of abdomen and pelvis with contrast 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 Jaquan Cristhian Work Phone: Start: 07-31-2023 Computed tomography of abdomen and pelvis with contrast 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 Jaquan Cristhian Work Phone: Start: 07-16-2023 Computed tomography of abdomen and pelvis with contrast 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 Jaquan Cristhian Work Phone: Start: 07-06-2023 Urnls dip stick/tablet rgnt auto w/o microscopy Bulk Order Provider Start: 07-03-2023 LONG CATHETER REMOVAL GABRIELLABAHMAN MAGAÑA Start: 07-03-2023 DISCHARGE PATIENT WOBAHMAN MAGAÑA Start: 07-03-2023 Glucose [Mass/volume] in Serum or Plasma GABRIELLABioregencyBAHMAN MAGAAÑ Start: 07-03-2023 Glucose quantitative blood xcpt reagent strip Kina Ann MD Work Phone: Start: 07-02-2023 Glucose [Mass/volume] in Serum or Plasma GABRIELLABioregencyBAHMAN MAGAÑA Start: 07-02-2023 Glucose quantitative blood xcpt reagent strip Kina Ann MD Work Phone: Start: 07-02-2023 Glucose [Mass/volume] in Serum or Plasma GABRIELLAANA MARIABAHMAN MAGAÑA Start: 07-02-2023 DIET TUBE FEEDING WITH [...] 07-02-2023 Glucose [Mass/volume] in Serum or Plasma [facility] Start: 07-02-2023 CBC panel - Blood by Automated count [facility] Start: 07-02-2023 RENAL FUNCTION PANEL [facility] Start: 07-02-2023 Glucose quantitative blood xcpt reagent strip Dolores Cox MD Work Phone: Start: 07-02-2023 Renal function panel Dolores Cox MD Work Phone: Start: 07-02-2023 Glucose [Mass/volume] in Serum or Plasma [facility] Start: 07-01-2023 Glucose quantitative blood xcpt reagent strip Dolores Cox MD Work Phone: Start: 07-01-2023 Glucose [Mass/volume] in Serum or Plasma [facility] Start: 07-01-2023 Glucose quantitative blood xcpt reagent strip Dolores Cox MD Work Phone: Start: 07-01-2023 Glucose [Mass/volume] in Serum or Plasma [facility] Start: 07-01-2023 Glucose quantitative blood xcpt reagent strip Dolores Cox MD Work Phone: Start: 07-01-2023 XR CHEST 1 VIEW [facility] Start: 07-01-2023 Glucose [Mass/volume] in Serum or Plasma [facility] Start: 07-01-2023 Glucose [Mass/volume] in Serum or Plasma [facility] Start: 07-01-2023 Radiologic exam chest single view Yajairam aamir Cox MD Work Phone: Start: 07-01-2023 Glucose quantitative blood xcpt reagent strip Dolores Cox MD Work Phone: Start: 07-01-2023 Glucose quantitative blood xcpt reagent strip Dolores Cox MD Work Phone: Start: 07-01-2023 Glucose [Mass/volume] in Serum or Plasma [facility] Start: 07-01-2023 Glucose quantitative blood xcpt reagent strip Dolores Cox MD Work Phone: Start: 07-01-2023 CBC panel - Blood by Automated count [facility] Start: 07-01-2023 Magnesium [Mass/volume] in Serum or Plasma [facility] Start: 07-01-2023 RENAL FUNCTION PANEL [facility] Start: 07-01-2023 Renal function panel Dolores Cox MD Work Phone: Start: 07-01-2023 BATH/SHOWER WITH CHLORHEXIDINE GLUCONATE [facility] Start: 06-30-2023 Glucose [Mass/volume] in Serum or Plasma [facility] Start: 06-30-2023 Glucose quantitative blood xcpt reagent strip Dolores Cox MD Work Phone: Start: 06-30-2023 MAY PARTICIPATE IN ROOM SERVICE [facility] Jonh BULLK Start: 06-30-2023 IP CONSULT TO SPIRITUAL CARE [facility] Start: 06-30-2023 IP CONSULT TO NUTRITION SERVICES [facility] Start: 06-30-2023 IP CONSULT TO SOCIAL WORK [facility] Start: 06-30-2023 IP CONSULT TO RESPIRATORY CARE [facility] HENNY CASTILLO Start: 06-30-2023 NOTIFY PROVIDER (DO NOT PROMPT FOR PARAMETERS) [facility] Start: 06-30-2023 NURSING COMMUNICATION [facility] Start: 06-30-2023 PULSE OXIMETRY, CONTINUOUS [facility] Start: 06-30-2023 ECG 12-LEAD [facility] Start: 06-30-2023 STAPHYLOCOCCUS AUREUS/MRSA COLONIZATION, [facility] Start: 06-30-2023 Glucose [Mass/volume] in Serum or Plasma [facility] Start: 06-30-2023 CT ANGIO ABDOMEN PELVIS W AND/OR WO IV IV CONTRAST [facility] Start: 06-30-2023 VASC US MESENTERIC ARTERY DUPLEX COMPLETE [facility] Start: 06-30-2023 Glucose quantitative blood xcpt reagent strip Baldomero Woodard MD Work Phone: Start: 06-30-2023 Ct angio abd&plvis cntrst mtrl w/wo cntrst img Tiffanie Mendez SPEECH PATHOLOGY SUPERVISOR-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 Work Phone: Start: 06-30-2023 Dup-scan artl tiara abdl/pel/scrot&/rpr orgn com Jamil Gavin MD Work Phone: Start: 06-30-2023 CBC panel - Blood by Automated count [facility] Start: 06-30-2023 Comprehensive metabolic 2000 panel - Serum or Plasma [facility] Start: 06-30-2023 Magnesium [Mass/volume] in Serum or Plasma [facility] Start: 06-30-2023 Phosphate [Mass/volume] in Serum or Plasma [facility] Start: 06-30-2023 Comprehensive metabolic panel Baldomero serrano MD Work Phone: Start: 06-30-2023 IP [facility] Start: 06-30-2023 CENTRAL VENOUS LINE CAP CHANGE - ADULTS [facility] Start: 06-30-2023 CENTRAL VENOUS LINE DRESSING CHANGE - ADULT [facility] Start: 06-30-2023 CENTRAL VENOUS LINE TUBING CHANGE - ADULTS [facility] Start: 06-30-2023 IP CONSULT TO ACUTE CARE SURGERY [facility] Start: 06-30-2023 GASTRIC TUBE CARE [facility] Start: 06-30-2023 NOTIFY PROVIDER (PROMPT FOR PARAMETERS) [facility] Start: 06-30-2023 NURSING COMMUNICATION [facility] Start: 06-30-2023 NURSING COMMUNICATION - DO NOT USE IN ORDER SETS [facility] Start: 06-30-2023 POCT GLUCOSE METER [facility] Start: 06-30-2023 EXTRA URINE [place] TUBE [facility] Start: 06-30-2023 HCG, URINE, QUALITATIVE [facility] Start: 06-30-2023 URINALYSIS WITH REFLEX CULTURE AND MICROSCOPIC [facility] Start: 06-30-2023 ADMIT TO INPATIENT [facility] Start: 06-30-2023 ED TO FLOOR BED REQUEST [facility] Start: 06-30-2023 EXTRA URINE [place] TUBE David Valadez DO Work Phone: Start: 06-30-2023 Urinalysis complete W Reflex Culture panel - Urine David Valadez DO Work Phone: Start: 06-30-2023 Urnls dip stick/tablet rgnt auto w/o microscopy David Valadez DO Work Phone: Start: 06-30-2023 CT ABDOMEN PELVIS WO IV CONTRAST [facility] Start: 06-29-2023 Ct abdomen & pelvis w/o contrast material David Valadez DO Work Phone: Start: 06-29-2023 Basic metabolic 2000 panel - Serum or Plasma [facility] Start: 06-29-2023 CBC panel - Blood by Automated count [facility] Start: 06-29-2023 Glucose [Mass/volume] in Serum or Plasma [facility] Start: 06-29-2023 CBC W Auto Differential panel - Blood [facility] Start: 06-29-2023 Comprehensive metabolic 2000 panel - Serum or Plasma [facility] Start: 06-29-2023 Comprehensive metabolic panel David rowland DO Work Phone: Start: 06-29-2023 Ecg routine ecg w/least 12 lds trcg only w/o i&r David Valadez DO Work Phone: Start: 06-29-2023 End: 06-29-2023 Comprehensive metabolic panel David rowland DO Work Phone: Start: 06-18-2023 Electrocardiogram JAQUAN CRISTHIAN Start: 05-30-2023 Computed tomography of abdomen and pelvis with contrast 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 Jaquan Cristhian Work Phone: Start: 05-30-2023 Urine culture 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 Jaquan Cristhian Work Phone: Start: 05-25-2023 Esophagoscp rig transoral hypopharynx crv esoph Rajni Lue Start: 05-20-2023 Esophagoscp rig transoral hypopharynx crv esoph Rajni Lue Start: 05-12-2023 Esophagogastroduodenoscopy Moncho ahumada Start: 04-06-2023 Computed tomography of abdomen and pelvis with contrast 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 Jaquan Cristhian Work Phone: Start: 03-20-2023 DISCHARGE PATIENT WOOSUP GÓMEZ Start: 03-19-2023 DISCHARGE PATIENT [facility] Start: 03-19-2023 Esophagogastroduodenoscopy [facility] [employer] Start: 03-19-2023 SURGICAL PATHOLOGY EXAM [facility] Start: 03-19-2023 Egd transoral biopsy single/multiple Deepika Roy SPEECH PATHOLOGY SUPERVISOR-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 Work Phone: Start: 03-19-2023 CBC panel - Blood by Automated count [facility] Start: 03-19-2023 Comprehensive metabolic 2000 panel - Serum or Plasma [facility] Start: 03-19-2023 Comprehensive metabolic panel Tiffaniejose Cruz all SPEECH PATHOLOGY SUPERVISOR-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 Work Phone: Start: 03-18-2023 CBC panel - Blood by Automated count [facility] Start: 03-18-2023 Comprehensive metabolic 2000 panel - Serum or Plasma [facility] Start: 03-18-2023 Comprehensive metabolic panel Tiffaniejose Cruz all SPEECH PATHOLOGY SUPERVISOR-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 Work Phone: Start: 03-17-2023 XR CHEST 1 VIEW [facility] Start: 03-17-2023 Radiologic exam chest single view Tiffanie Mendez SPEECH PATHOLOGY SUPERVISOR-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 Work Phone: Start: 03-17-2023 FL UPPER GI W DOUBLE CONTRAST W SMALL BOWEL FOLLOW THROUGH [facility] [employer] Start: 03-17-2023 Radiologic exam upr gi trc double contrast study Tiffanie Mendez SPEECH PATHOLOGY SUPERVISOR-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 Work Phone: Start: 03-17-2023 XR CHEST 1 VIEW [facility] [employer] Start: 03-17-2023 Radiologic exam chest single view Tiffanie Mendez SPEECH PATHOLOGY SUPERVISOR-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 Work Phone: Start: 03-17-2023 CBC panel - Blood by Automated count [facility] Start: 03-17-2023 Comprehensive metabolic 2000 panel - Serum or Plasma [facility] Start: 03-17-2023 ECG 12-LEAD [facility] [employer] Start: 03-17-2023 Comprehensive metabolic panel Tiffaniejose Cruz all SPEECH PATHOLOGY SUPERVISOR-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 Work Phone: Start: 03-16-2023 CT ABDOMEN PELVIS W IV CONTRAST [facility] Jonh BRAY Start: 03-16-2023 Ct abdomen & pelvis w/contrast material Tiffanie Mendez SPEECH PATHOLOGY SUPERVISOR-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 Work Phone: Start: 03-16-2023 ED TO FLOOR BED REQUEST [facility] Start: 03-16-2023 PULSE OXIMETRY, CONTINUOUS [facility] Start: 03-16-2023 [facility] Start: 03-16-2023 MEASURE HEIGHT [facility] [place] Start: 03-16-2023 [facility]OSTATIC [facility]LOOD [facility]ESS[facility] Start: 03-16-2023 [facility] Start: 03-16-2023 ADMIT TO INPATIENT [facility] Start: 03-16-2023 CBC W Auto Differential panel - Blood [facility] Start: 03-16-2023 Comprehensive metabolic 2000 panel - Serum or Plasma [facility] Start: 03-16-2023 SARS-COV-2 AND INFLUENZA A/B PCR [facility] Start: 03-16-2023 PULSE OXIMETRY, CONTINUOUS Tiffanie Mendez SPEECH PATHOLOGY SUPERVISOR-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 Work Phone: Start: 03-16-2023 Comprehensive metabolic panel Melisa lipscomb MD Work Phone: Start: 03-16-2023 Influenza virus A and B and SARS-CoV-2 (COVID-19) identified in Respiratory specimen by HANK with probe detection Melisa Barker MD Work Phone: Start: 03-10-2023 DISCHARGE PATIENT [place] Start: 03-10-2023 DISCHARGE INSTRUCTIONS [facility] Start: 03-10-2023 Glucose [Mass/volume] in Serum or Plasma [facility] Start: 03-10-2023 Glucose quantitative blood xcpt reagent strip Dolores Cox MD Work Phone: Start: 03-10-2023 Glucose [Mass/volume] in Serum or Plasma [facility] Start: 03-10-2023 Glucose quantitative blood xcpt reagent strip Dolores Cox MD Work Phone: Start: 03-10-2023 Basic metabolic 2000 panel - Serum or Plasma [facility] Start: 03-10-2023 CBC panel - Blood by Automated count [facility] Start: 03-10-2023 Glucose [Mass/volume] in Serum or Plasma [facility] Start: 03-10-2023 End: 03-10-2023 Basic metabolic panel calcium total Alicia Toro SPEECH PATHOLOGY SUPERVISOR-[facility] Work Phone: Start: 03-10-2023 POCT GLUCOSE METER [facility] Start: 03-10-2023 Glucose [Mass/volume] in Serum or Plasma [facility] Start: 03-10-2023 Glucose quantitative blood xcpt reagent strip Dolores Cox MD Work Phone: Start: 03-09-2023 Glucose [Mass/volume] in Serum or Plasma [facility] Start: 03-09-2023 Glucose quantitative blood xcpt reagent strip Dolores Cox MD Work Phone: Start: 03-09-2023 Glucose [Mass/volume] in Serum or Plasma [facility] Start: 03-09-2023 Glucose quantitative blood xcpt reagent strip Dolores Cox MD Work Phone: Start: 03-09-2023 C. DIFFICILE, PCR [facility] Start: 03-09-2023 STOOL PATHOGEN PANEL, PCR [facility] Start: 03-09-2023 Glucose [Mass/volume] in Serum or Plasma [facility] Start: 03-09-2023 Iadna-dna/rna gi pthgn multiplex probe tq 6-11 Alicia Toro SPEECH PATHOLOGY SUPERVISOR-[facility] Work Phone: Start: 03-09-2023 Inf agent det nucleic acid clostridium amp probe Alicia Toro SPEECH PATHOLOGY SUPERVISOR-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 Work Phone: Start: 03-09-2023 IP CONSULT TO NUTRITION SERVICES [facility] Start: 03-09-2023 Glucose quantitative blood xcpt reagent strip Dolores Cox MD Work Phone: Start: 03-09-2023 Glucose [Mass/volume] in Serum or Plasma [facility] Start: 03-09-2023 ECG 12-LEAD SHERRY MAGAÑA Start: 03-09-2023 Basic metabolic 2000 panel - Serum or Plasma SHERRY MAGAÑA Start: 03-09-2023 CBC panel - Blood by Automated count SHERRY MAGAÑA Start: 03-09-2023 Glucose quantitative blood xcpt reagent strip Dolores Cox MD Work Phone: Start: 03-09-2023 Glucose [Mass/volume] in Serum or Plasma SHERRY MAGAÑA Start: 03-09-2023 Basic metabolic panel calcium total Alicia Toro SPEECH PATHOLOGY SUPERVISOR-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 Work Phone: Start: 03-09-2023 Glucose [Mass/volume] in Serum or Plasma [facility] Start: 03-09-2023 Glucose quantitative blood xcpt [...] CBC panel - Blood by Automated count [facility]gency[facility] [place] Start: 03-08-2023 Glucose [Mass/volume] in Serum or Plasma [facility] [place] Start: 03-08-2023 End: 03-08-2023 Basic metabolic panel calcium total Chrissy Harris PA-C Work Phone: Start: 03-08-2023 INSERT URETHRAL CATHETER [facility] Start: 03-08-2023 POCT GLUCOSE METER [facility] Start: 03-08-2023 Glucose [Mass/volume] in Serum [facility] Start: 03-08-2023 Glucose quantitative blood xcpt reagent strip Karma Sharpe MD Work Phone: Start: 03-07-2023 Glucose [Mass/volume] in Serum or Plasma [facility] [place] Start: 03-07-2023 Glucose quantitative blood xcpt reagent strip Karma Sharpe MD Work Phone: Start: 03-07-2023 Glucose [Mass/volume] in Serum or Plasma SHERRY MAGAÑA Start: 03-07-2023 Glucose quantitative blood xcpt reagent strip Karma Sharpe MD Work Phone: Start: 03-07-2023 Glucose [Mass/volume] in Serum or Plasma [facility] [place] Start: 03-07-2023 Glucose quantitative blood xcpt reagent strip Karma Sharpe MD Work Phone: Start: 03-07-2023 Glucose [Mass/volume] in Serum or Plasma WOMERARY MAGAÑA Start: 03-07-2023 Glucose quantitative blood xcpt reagent strip Karma Sharpe MD Work Phone: Start: 03-07-2023 Basic metabolic 2000 panel - Serum or Plasma [facility] [place] Start: 03-07-2023 CBC panel - Blood by Automated count [facility] [place] Start: 03-07-2023 Glucose [Mass/volume] in Serum or Plasma [facility] [place] Start: 03-07-2023 Basic metabolic panel calcium total Chrissy Harris PA-C Work Phone: Start: 03-07-2023 RESPIRATORY CARE EVALUATION ONLY [facility] Start: 03-07-2023 Glucose quantitative blood xcpt reagent strip Karma Sharpe MD Work Phone: Start: 03-07-2023 POCT GLUCOSE METER [facility] Start: 03-07-2023 RESPIRATORY CARE EVALUATION ONLY Karma siegel MD Work Phone: Start: 03-07-2023 Glucose [Mass/volume] in Serum or Plasma [facility] Start: 03-06-2023 Glucose quantitative blood xcpt reagent strip Karma Sharpe MD Work Phone: Start: 03-06-2023 Glucose [Mass/volume] in Serum or Plasma [facility] Start: 03-06-2023 TELEMETRY MONITORING [facility] Start: 03-06-2023 Glucose quantitative blood xcpt reagent strip Karma Sharpe MD Work Phone: Start: 03-06-2023 TRANSFER PATIENT TO NEW UNIT [facility] Start: 03-06-2023 Glucose [Mass/volume] in Serum or Plasma [facility] Start: 03-06-2023 Glucose quantitative blood xcpt reagent strip Karma Sharpe MD Work Phone: Start: 03-06-2023 Glucose [Mass/volume] in Serum or Plasma [facility] Start: 03-06-2023 Glucose quantitative blood xcpt reagent strip Corie Head MD Work Phone: Start: 03-06-2023 Glucose [Mass/volume] in Serum or Plasma [facility] Start: 03-06-2023 XR CHEST 1 VIEW [facility] Start: 03-06-2023 Glucose quantitative blood xcpt reagent strip Corie Head MD Work Phone: Start: 03-06-2023 Radiologic exam chest single view Shona Foster SPEECH PATHOLOGY SUPERVISOR-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 Work Phone: Start: 03-06-2023 Basic metabolic 2000 panel - Serum or Plasma [facility] Start: 03-06-2023 CBC panel - Blood by Automated count [facility] [place] Start: 03-06-2023 Magnesium [Mass/volume] in Serum or Plasma [facility] [place] Start: 03-06-2023 Phosphate [Mass/volume] in Serum or Plasma [facility] [place] Start: 03-06-2023 Glucose [Mass/volume] in Serum or Plasma [facility] [place] Start: 03-06-2023 Basic metabolic panel calcium total Chrissywilliams Harris PA-C Work Phone: Start: 03-06-2023 Glucose quantitative blood xcpt reagent strip Corie Head MD Work Phone: Start: 03-06-2023 POCT GLUCOSE METER [facility] [place] Start: 03-06-2023 [facility] Start: 03-06-2023 Glucose [Mass/volume] in Serum or Plasma [facility] [place] Start: 03-05-2023 Glucose quantitative blood xcpt reagent strip Corie Head MD Work Phone: Start: 03-05-2023 Glucose [Mass/volume] in Serum or Plasma [facility] [place] Start: 03-05-2023 Glucose quantitative blood xcpt reagent strip Corie Head MD Work Phone: Start: 03-05-2023 Glucose [Mass/volume] in Serum or Plasma [facility] [place] Start: 03-05-2023 Basic metabolic 2000 panel - Serum or Plasma [facility] [place] Start: 03-05-2023 CBC panel - Blood by Automated count [facility] [place] Start: 03-05-2023 Magnesium [Mass/volume] in Serum or Plasma [facility] [place] Start: 03-05-2023 Phosphate [Mass/volume] in Serum or Plasma [facility] [place] Start: 03-05-2023 XR CHEST 1 VIEW [facility] [place] Start: 03-05-2023 POCT GLUCOSE METER [facility] [place] Start: 03-05-2023 [facility] Start: 03-05-2023 WEIGH PATIENT [facility] [place] Start: 03-05-2023 [facility] Start: 03-05-2023 Glucose quantitative blood xcpt [...] SHERRY MAGAÑA Start: 03-05-2023 SURGICAL PATHOLOGY EXAM GABRIELLAOSBAHMAN MAGAÑA Start: 03-05-2023 PULSE OXIMETRY, CONTINUOUS Serena George DO Work Phone: Start: 03-05-2023 Level iii surg pathology gross&microscopic exam Sherry Magaña MD Work Phone: Start: 03-05-2023 End: 03-05-2023 Unlisted px abdomen musculoskeletal system Sherry Magaña MD Work Phone: Start: 03-05-2023 VERAB/VERIFY ABORH SHERRY MAGAÑA Start: 03-05-2023 XR CHEST 1 VIEW [facility] Start: 03-05-2023 VERAB/VERIFY ABORHai Magaña MD Work Phone: Start: 03-05-2023 Radiologic exam chest single view Edmund George DO Work Phone: Start: 03-02-2023 Basic metabolic 2000 panel - Serum or Plasma NO GENERIC PROVIDER Start: 03-02-2023 TYPE AND SCREEN NO GENERIC PROVIDER Start: 03-02-2023 STAPHYLOCOCCUS AUREUS/MRSA COLONIZATION, CULTURE SHERRY [facility]AÑA Start: 02-13-2023 Computed tomography of abdomen [...] NO GENERIC PROVIDER Start: 01-14-2023 ECG 12-LEAD GABRIELLABAHMAN MAGAÑA Start: 01-14-2023 VASC US MESENTERIC ARTERY DUPLEX COMPLETE OS [facility] Start: 01-14-2023 Follow-up visit Follow-up SHERRY MAGAÑA Start: 01-13-2023 HCG, URINE, QUALITATIVE G[facility]ELLABAHMAN MAGAÑA Start: 01-13-2023 URINALYSIS WITH REFLEX MICROSCOPIC [facility] Start: 01-13-2023 CBC W Auto Differential panel - [facility] Start: 01-13-2023 Comprehensive metabolic 2000 panel - Serum or Plasma [facility] Start: 11-26-2022 Dup-scan artl tiara abdl/pel/scrot&/rpr orgn com Deacon Kat MD Work Phone: Start: 11-11-2022 Antibody screen JAQUAN MORROW Comment on above: Order Comment: Specimen Type: BLOOD SPEC IMENOrdering Facility: [facility] Address: [address] [place] [address] Performed By: #### T SCR ####[facility] [id number] [address] [place] Start: 11-11-2022 Ercp [...] History of Tan-en-Y gastric bypass Breanna Stern SPEECH PATHOLOGY SUPERVISOR.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 Work Phone: Start: 03-06-2022 Esophagoscp rig transoral hypopharynx crv juanoph Breanna Stern SPEECH PATHOLOGY SUPERVISOR.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 Work Phone: Start: 01-29-2022 Revision - value [...] Date is not exact Start: 01-20-2021 Esophagogastroduodenoscopy Sanchoit Juwanar i Start: 12-14-2020 Radex fingr minimum 2 views Vicky Olmedo MD Work Phone: Start: 11-04-2020 Hysterectomy Ashutosh Albright Start: 07-02-2020 Us pelvic nonobstetric real-time image complete Juanito INMAN-C Work Phone: Start: 07-02-2020 Blood typing serologic abo Juanito aguilar PA-C Work Phone: Start: 07-02-2020 Complete blood count with white cell differential, automated Juanito INMAN-C Work Phone: Start: 07-02-2020 Comprehensive metabolic panel Juanito INMAN-C Work Phone: Start: 07-02-2020 Ct abdomen & pelvis w/o contrast material Juanito INMAN-Elroy Work Phone: Start: 07-02-2020 Gonadotropin chorionic qualitative [...] Work Phone: Appendectomy Rajni Rouse Cholecystectomy Rajni Lulesia Colonoscopy Rajni Rouse H/O: hysterectomy S/P hysterectomy Mirna Carrillo MD Work Phone: H/O: surgery S/P gastric surgery Nahed Tamez [...] of 2) Zoster Vaccines (1 of 2) [facility] Start: 09-21-2026 DTaP/Tdap/Td vaccine (2 - Td or Tdap) DTaP/Tdap/Td vaccine (2 - Td or Tdap) [facility] Start: 09-21-2026 DTaP/Tdap/Td Vaccines (2 - Td or Tdap) DTaP/Tdap/Td Vaccines (2 - Td or Tdap) [facility] Start: 09-21-2026 Tetanus vaccination TETANUS [facility] Start: 09-21-2026 Urine microalbumin profile [facility] Start: 10-12-2024 BP Controlled (<130/80) BP Controlled (<130/80) [facility] Start: 08-08-2024 BP Controlled (<130/80) BP Controlled (<130/80) [facility] Start: 07-02-2024 Diabetes mellitus screening Diabetes Screening [facility] Start: 04-27-2024 BP Controlled (<130/80) BP Controlled (<130/80) [facility] Start: 03-10-2024 Diabetes mellitus screening Diabetes Screening [facility] Start: 01-21-2024 End: 01-21-2024 Patient encounter procedure 01/21/2024 4:40 PM EST Office Visit Dermatology [address] [address] Samara Evans MD [address] [phone] new tiny black spots on hand & arm Dermatology Comment on above: new tiny black spots on hand & arm Start: 12-22-2023 End: 12-22-2023 ambulatory 12/22/2023 9:30 AM EST [facility] [address] [address] Georgina Carrillo MD [facility] [address] [place] [phone] Dietitian, Cgrt [address] [place] [address] CGRT / VIRTUAL Gastroenterology Comment on above: CGRT / VIRTUAL Start: 12-21-2023 End: 12-21-2023 Patient encounter procedure 12/21/2023 11:30 AM EST Office Visit Colorectal Surgery [id number] [id number] Andie Mejias APRN.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 [address] [place] [address] Abnormal defecation [R19.8] Colorectal Surgery Comment on above: Abnormal defecation [R19.8] Start: 12-21-2023 End: 12-21-2023 Admission to same day surgery center 12/21/2023 11:00 AM EST Procedure Colorectal Surgery [address] [place] [address] Andie Mejias APRN.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 [address] [place] [address] Abnormal defecation [R19.8] Colorectal Surgery Comment on above: Abnormal defecation [R19.8] Start: 12-09-2023 End: 12-09-2023 Patient encounter procedure 12/09/2023 8:15 AM EDT Office Visit Endocrinology [address] [phone] Silvina Cadena APRN.OFFSHORE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 [address] [place] [address] Hypoglycemia [E16.2] [facility] [place] Comment on above: Hypoglycemia [E16.2] Start: 12-05-2023 BP Controlled (<130/80) BP Controlled (<130/80) [facility] Start: 12-03-2023 End: 12-03-2023 Patient encounter procedure 12/03/2023 12:15 PM EDT Office Visit [address] [phone] Silvina Cadena APRN.OFFSHORE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 [address] [place] [address] Hypoglycemia [E16.2] [facility] [place] Comment on above: Hypoglycemia [E16.2] Start: 12-02-2023 End: 12-02-2023 Patient encounter procedure 12/02/2023 1:30 PM EDT Office Visit Gastroenterology [address] [address] Chichi Miller MD [address] [place] [address] Multiple gastric ulcers [K25.9] Gastroenterology Comment on above: Multiple gastric ulcers [K25.9] Start: 11-27-2023 BP Controlled (<130/80) BP Controlled (<130/80) [facility] Start: 11-17-2023 End: 11-17-2023 Patient encounter procedure 11/17/2023 10:20 AM EDT Office Visit Gastroenterology [address] [address] Kasie Avalos MD 59[address] [place] [address] FOLLOW UP Gastroenterology Comment on above: FOLLOW UP Start: 11-10-2023 End: 11-10-2023 Patient encounter procedure 11/10/2023 1:40 PM EDT Appointment Radiology [address] [place] [address] Abnormal defecation [R19.8] Radiology Comment on above: Abnormal defecation [R19.8] Start: 11-10-2023 End: 11-10-2023 Patient encounter procedure 11/10/2023 10:40 AM EDT Office Visit Gastroenterology [address] [address] Kasie Avalos MD [address] [place] [address] FOLLOW UP Gastroenterology Comment on above: FOLLOW UP Start: 11-08-2023 End: 11-08-2023 Admission to same day surgery center General Surgery Comment on above: post op one month/ dx lap 10/07/2023 Post Op: One month- dx lap 10/06 Start: 11-04-2023 End: 11-04-2023 Follow-up encounter 11/04/2023 5:30 PM EDT [facility] Pain Management [address] [place] [address] Vic Ramos MD [address] [place] [address] follow up Pain Management Comment on above: follow up Start: 11-01-2023 End: 11-01-2023 Patient encounter procedure 11/01/2023 8:00 AM EDT Appointment Gastroenterology [address] [address] Chichi Miller MD [address] [place] [address] Multiple gastric ulcers [K25.9] Gastroenterology Comment on above: Multiple gastric ulcers [K25.9] Start: 10-28-2023 End: 10-28-2023 Follow-up encounter 10/28/2023 4:15 PM EDT [facility] Pain Management [address] [place] [address] Vic Ramos MD [address] [place] [address] [place] [address] follow up Pain Management Comment on above: follow up Start: 10-27-2023 Thyroid stimulating hormone measurement TSH Level [facility] Start: 10-21-2023 End: 10-21-2023 Patient encounter procedure 10/21/2023 2:00 PM EDT Office Visit Allergy [address] [place] [phone] Sara Velasquez MD [address] [place] [address] Facial swelling [R22.0] Allergy Comment on above: Facial swelling [R22.0] Start: 10-20-2023 End: 10-20-2023 Admission to same day surgery center 10/20/2023 2:45 PM EDT - 10/20/2023 4:45 PM EDT Surgery [facility] Operating Room [address] [place] [address] Deacon Kat MD [address] [place] [address] LAPAROSCOPY DIAGNOSTIC [facility] Operating Room Comment on above: LAPAROSCOPY DIAGNOSTIC Start: 10-20-2023 End: 10-20-2023 Laps abd prtm&omentum dx w/wo spec br/wa spx LAPAROSCOPY DIAGNOSTIC Chronic abdominal pain History of gastric bypass Pre-op testing 10/20/2023 2:45 PM EDT [facility] OR Start: 10-20-2023 Subsequent hospital visit by physician 10/20/2023 2:45 PM EDT Hospital Encounter [facility] Operating Room [address] [place] [address] [place] [address] [place] [address] Chronic abdominal pain [R10.9, G89.29], History of gastric bypass [Z98.84], Pre-op testing [Z01.818] [facility] Operating Room Comment on above: Chronic abdominal pain [R10.9, G89.29], History of gastric bypass [Z98.84], Pre-op testing [Z01.818] Start: 10-20-2023 End: 10-20-2023 Patient encounter procedure 10/20/2023 8:20 AM EDT Office Visit General Surgery [address] [place], [place] [phone] Breanna Stern APRN.OFFSHORE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 [address] [place], [place] [phone] post op 2-3 wks/ dx lap 10/07/2023 General Surgery Comment on above: post op 2-3 wks/ dx lap 10/07/2023 Start: 10-17-2023 Covid-19 Vaccine ( season) Covid-19 Vaccine ( season) [facility] Start: 10-17-2023 Influenza vaccination Influ[facility] Vacc[facility] (#[facility] Start: 10-15-2023 End: 10-15-2023 Admission to same day surgery center 10/15/2023 11:36 AM EDT - 10/15/2023 1:16 PM EDT Surgery Angio [address] [place] [address] ACADEMIC ADVISER [address] [place] [address] INSERTION TUNNELED CV CATHETER Angio Comment on above: INSERTION TUNNELED CV CATHETER Start: 10-15-2023 End: 10-15-2023 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 4 yr/> [facility] ANGIO HB6 Start: 10-15-2023 Subsequent hospital visit by physician 10/15/2023 11:36 AM EDT Hospital Encounter Angio [address] [place] [address] ACADEMIC ADVISER [address] [place] [address] On total parenteral nutrition (TPN) [Z78.9] Angio Comment on above: On total parenteral nutrition (TPN) [Z78 .9] Start: 10-13-2023 End: 10-13-2023 Patient encounter procedure Gastroenterology Comment on above: cgrt page [id number] Start: 10-13-2023 End: 10-13-2023 ambulatory 10/13/2023 12:00 PM EDT Education Gastroenterology [address] [place] [phone] Dietitian, Cgrt [address] [place] [phone] cgrt page [id number] Gastroenterology Comment on above: cgrt page [id number] Start: 10-07-2023 End: 10-07-2023 Admission to same day surgery center 10/07/2023 7:30 AM EDT - 10/07/2023 9:15 AM EDT Surgery [facility] Operating Room [address] [place], [place] [phone] Deacon [place] [phone] [place] [address] LAPAROSCOPY DIAGNOSTIC [facility] Operating Room Comment on above: LAPAROSCOPY DIAGNOSTIC Start: 10-07-2023 End: 10-07-2023 Anesthesia consultation 10/07/2023 7:30 AM EDT Anesthesia Event [facility] Operating Room [address] [place] [address] Nathalie Preciado APRN.PACKAGE CENTER SUPERVISOR [address] [place] [address] [facility] Operating Room Start: 10-07-2023 End: 10-07-2023 Laps abd prtm&omentum dx w/wo spec br/wa spx LAPAROSCOPY DIAGNOSTIC Chronic abdominal pain History of gastric bypass Pre-op testing 10/07/2023 7:30 AM EDT [facility] OR Start: 10-07-2023 Subsequent hospital visit by physician 10/07/2023 7:30 AM EDT Hospital Encounter [facility] Operating Room [address] [place] [address] [place] [address] [place] [address] Chronic abdominal pain [R10.9, G89.29], History of gastric bypass [Z98.84], Pre-op testing [Z01.818] [facility] Operating Room Comment on above: Chronic abdominal pain [R10.9, G89.29], History of gastric bypass [Z98.84], Pre-op testing [Z01.818] Start: 10-06-2023 End: 10-06-2023 Anesthesia consultation 10/06/2023 3:40 PM EDT PAT Pre Anesthesia [address] [place] [address] PACC//preop//lap diagnostic//Gutnick// Pre Anesthesia Comment on above: PACC//preop//lap diagnostic//Gutnick// Start: 09-30-2023 End: 09-30-2023 Patient encounter procedure 09/30/2023 2:00 PM EDT Office Visit Allergy [address] [place] [address] Sara Velasquez MD [address] [place] [address] Facial swelling [R22.0] Allergy Comment on above: Facial swelling [R22.0] Start: 09-27-2023 End: 09-27-2023 Patient encounter procedure 09/27/2023 3:00 PM EDT Office [place] [address] surgical reg//preop//lap diagnostic//Gutnick// [employer] Comment on above: surgical reg//preop//lap diagnostic//Gut leandro//10/20/2023 Start: 09-22-2023 End: 09-22-2023 Patient encounter procedure 09/22/2023 9:40 AM EDT Office Visit Dermatology [address] [address] Samara Evans MD [address] [place] [address] new tiny black spots on hand & arm Dermatology Comment on above: new tiny black spots on hand & arm Start: 09-09-2023 End: 09-09-2023 Patient encounter procedure 09/09/2023 2:00 PM EDT Office Visit Allergy [address] [place] [phone] Sara Velasquez MD [address] [place], [place] [phone] Facial swelling [R22.0] Allergy Comment on above: Facial swelling [R22.0] Start: 09-08-2023 End: 09-08-2023 Patient encounter procedure 09/08/2023 10:40 AM EDT Office Visit Gastroenterology [address] [address] Kasie Avalos MD [address] [place] [address] 3 month f/u Gastroenterology Comment on above: 3 month f/u Start: 09-03-2023 End: 09-03-2023 Patient encounter procedure 09/03/2023 12:45 PM EDT Office Visit Pulmonary Medicine [address] [place] [address] Alan Jurado MD [address] [place] [address] Follow-up of left lower lobe pneumonia Pulmonary Medicine Comment on above: Follow-up of left lower lobe pneumonia Start: 08-30-2023 End: 08-30-2023 Nursing evaluation of patient and report Gastroenterology Comment on above: Gastroesophageal reflux disease, unspeci fied whether esophagitis present [K21.9] Start: 08-26-2023 End: 08-26-2023 Nursing evaluation of patient and report 08/26/2023 3:00 PM EDT Nurse Visit Gastroenterology [address] [address] 2, Nurse Gi Lab [address] [address] Gastroesophageal reflux disease, unspecified whether esophagitis present [K21.9] Gastroenterology Comment on above: Gastroesophageal reflux disease, unspeci fied whether esophagitis present [K21.9] Start: 08-26-2023 End: 08-26-2023 Patient encounter procedure 08/26/2023 3:00 PM EDT Appointment Gastroenterology [address] [place] [phone] [place] [address] [place] [address] Gastroesophageal reflux disease, unspecified whether esophagitis present [K21.9] Gastroenterology Comment on above: Gastroesophageal reflux disease, unspeci fied whether esophagitis present [K21.9] Start: 08-09-2023 End: 08-09-2023 Patient encounter procedure 08/09/2023 2:00 PM EDT Office Visit Pain Management [address] [place], [place] [phone] Vic Ramos MD [address] [place] [address] [place] [address] follow up Pain Management Comment on above: follow up Start: 08-09-2023 End: 08-09-2023 Follow-up encounter 08/09/2023 9:00 AM EDT [facility] Neurology [address] [place] [address] Pablo Lebron PSYD [address] [place], [place] [phone] follow up Neurology Comment on above: follow up Start: 08-04-2023 End: 08-04-2023 Patient encounter procedure 08/04/2023 9:00 AM EDT Office Visit Pain Management [address] [place] [address] Boogie Murguia MD [address] [place] [address] medication refill (ketamine) Pain Management Comment on above: medication refill (ketamine) Start: 07-28-2023 End: 07-28-2023 Patient encounter procedure 07/28/2023 10:00 AM EDT Office Visit Gastroenterology [address] [address] Kasie Avalos MD [address] [place] [address] 3 month f/u Gastroenterology Comment on above: 3 month f/u Start: 07-22-2023 End: 07-22-2023 Patient encounter procedure 07/22/2023 9:30 AM EDT Office Visit Colorectal Surgery [address] [address] La Montes De Oca, SLIM.OFFSHORE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 [address] [place] [address] Constipation, unspecified constipation type [K59.00] Colorectal Surgery Comment on above: Constipation, unspecified constipation t ype [K59.00] Start: 07-22-2023 End: 07-22-2023 Admission to same day surgery center 07/22/2023 9:00 AM EDT Procedure Colorectal Surgery [address] [address] La Montes De Oca, SLIM.OFFSHORE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 [address] [place] [address] Constipation, unspecified constipation type [K59.00] Colorectal Surgery Comment on above: Constipation, unspecified constipation t ype [K59.00] Start: 07-22-2023 End: 07-22-2023 Nursing evaluation of patient and report 07/22/2023 8:00 AM EDT Nurse Visit Gastroenterology [address] [address] Lab, Nurse Gi I [address] [place] [address] Gastroesophageal reflux disease, unspecified whether esophagitis present [K21.9] Gastroenterology Comment on above: Gastroesophageal reflux disease, unspeci fied whether esophagitis present [K21.9] Start: 07-20-2023 End: 07-20-2023 Professional / ancillary services management 07/20/2023 2:00 PM EDT Ancillary Procedure [facility] [address] [facility] [address] [place] [address] [facility] Start: 07-20-2023 End: 07-20-2023 Nursing evaluation of patient and report 07/20/2023 1:30 PM EDT Nurse Visit Gastroenterology [address] [address] Lab, Nurse Gi I [address] [place] [address] Gastroesophageal reflux disease, unspecified whether esophagitis present [K21.9] Gastroenterology Comment on above: Gastroesophageal reflux disease, unspeci fied whether esophagitis present [K21.9] Start: 07-20-2023 End: 07-20-2023 Patient encounter procedure Gastroenterology Comment on above: Gastroesophageal reflux disease, unspeci fied whether esophagitis present [K21.9] Start: 07-17-2023 [facility] Start: 07-17-2023 Referral to general surgeon [facility] Start: 07-17-2023 Hospital admission [facility] Start: 07-15-2023 End: 07-15-2023 Patient encounter procedure 07/15/2023 3:15 PM EDT Office Visit Pain Management [address] [place] [address] Vic Ramos MD [address] [facility] [address] [place], [place] [phone] est Pain Management Comment on above: est Start: 07-15-2023 End: 07-15-2023 Patient encounter procedure 07/15/2023 7:30 AM EDT Office Visit Pain Management [address] [place] [address] May Ramey APRN.[employer]SH[employer]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 [address] [place] [address] Needs medication, unknown who can order Pain Management Comment on above: Needs medication, unknown who can order Start: 07-09-2023 End: 07-09-2023 Follow-up encounter 07/09/2023 9:00 AM EDT [facility] Neurology [address] [place] [address] Pablo Lebron, PSYD [address] [place] [address] follow up Neurology Comment on above: follow up Start: 07-07-2023 End: 07-07-2023 Patient encounter procedure 07/07/2023 10:30 AM EDT Office Visit Colorectal Surgery [address] [place] [phone] Vonda Hercules PA-C [address] [place] [address] Constipation, unspecified constipation type [K59.00] Colorectal Surgery Comment on above: Constipation, unspecified constipation t ype [K59.00] Start: 07-07-2023 End: 07-07-2023 Admission to same day surgery center 07/07/2023 10:00 AM EDT Procedure Colorectal Surgery [address] [address] Vonda Hercules PA-C [address] [place] [address] Constipation, unspecified constipation type [K59.00] Colorectal Surgery Comment on above: Constipation, unspecified constipation t ype [K59.00] Start: 06-23-2023 End: 06-23-2023 Patient encounter procedure 06/23/2023 9:00 AM EDT Office Visit Plastic Surgery [address] [address] Juana Padilla, SPEECH PATHOLOGY SUPERVISOR.OFFSHORE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 [address] [place] [address] CONSULT FOR SKIN REMOVAL WEIGHT LOSS SURGERY PROVIDER LISSET KAT [facility] 01/2022 @ [facility] Plastic Surgery Comment on above: CONSULT FOR SKIN REMOVAL WEIGHT LOSS RED [place] PROVIDER LISSET KAT [facility] 01/2022 @ [facility] Start: 06-18-2023 End: 06-18-2023 Follow-up encounter 06/18/2023 4:00 PM EDT [facility] [address] [place] [address] [place] [address] Vic Ramos MD [address] [place] [address] [place] [address] Hospital Follow Up chronic pain Pain Management Comment on above: Hospital Follow Up chronic pain Start: 06-18-2023 End: 06-18-2023 Patient encounter procedure 06/18/2023 10:00 AM EDT Office Visit [facility] [address] [facility] [place] [phone] Breanna Stern, SPEECH PATHOLOGY SUPERVISOR.OFFSHORE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 [address] [place] [address] Post PEG-J placement General Surgery Comment on above: Post PEG-J placement Start: 06-15-2023 End: 06-15-2023 Patient encounter procedure 06/15/2023 11:00 AM EDT Office Visit General Surgery [address] [address] Breanna Stern, SPEECH PATHOLOGY SUPERVISOR.OFFSHORE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 [address] [place] [address] Post PEG-J placement General Surgery Comment on above: Post PEG-J placement Start: 06-13-2023 BP CONTROLLED (<130/80) BP CONTROLLED (<130/80) [facility] Start: 05-30-2023 Bacteria identified in Urine by Culture [facility] Start: 04-12-2023 End: 04-12-2023 Telemedicine consultation with patient 04/12/2023 9:00 AM EST Telemedicine [facility] [address] [place] [address] [place] [address] [place] [address] [facility] Start: 11-23-2022 End: 11-24-2023 US MESENTERIC ARTERY CMPLT VAS LAB US MESENTERIC ARTERY CMPLT VAS LAB Vascular Lab [place] Chronic nausea RUQ pain Expected: 11/23/2022, Expires: 11/24/2023 [facility] Work Phone: Comment on above: Expected: 11/23/2022, Expires: Start: 11-18-2022 End: 01-18-2023 25-hydroxyvitamin D3 [Mass/volume] in Serum or Plasma VITAMIN D 25 HYDROXY Lab Routine S/P bariatric surgery Impaired intestinal absorption Expected: 11/18/2022 (Approximate), Expires: 01/18/2023 [facility] Work Phone: Comment on above: Expected: 11/18/2022 (Approximate), Expi res: 01/18/2023 Start: 11-18-2022 End: 01-18-2023 CBC panel - Blood by Automated count CBC Lab Routine S/P bariatric surgery Impaired intestinal absorption Expected: 11/18/2022 (Approximate), Expires: 01/18/2023 [facility] Work Phone: Comment on above: Expected: 11/18/2022 (Approximate), Expi res: 01/18/2023 Start: 11-18-2022 End: 01-18-2023 Cobalamin (Vitamin B12) [Mass/volume] in Serum or Plasma VITAMIN B12 BLOOD Lab Routine S/P bariatric surgery Impaired intestinal absorption Expected: 11/18/2022 (Approximate), Expires: 01/18/2023 [facility] Work Phone: Comment on above: Expected: 11/18/2022 (Approximate), Expi res: 01/18/2023 Start: 11-18-2022 End: 01-18-2023 Comprehensive metabolic 2000 panel - Serum or Plasma COMP METABOLIC PANEL Lab Routine S/P bariatric surgery Impaired intestinal absorption Expected: 11/18/2022 (Approximate), Expires: 01/18/2023 [facility] Work Phone: Comment on above: Expected: 11/18/2022 (Approximate), Expi res: 01/18/2023 Start: 11-18-2022 End: 01-18-2023 Ferritin [Mass/volume] in Serum or Plasma FERRITIN BLD Lab Routine S/P bariatric surgery Impaired intestinal absorption Expected: 11/18/2022 (Approximate), Expires: 01/18/2023 [facility] Work Phone: Comment on above: Expected: 11/18/2022 (Approximate), Expi res: 01/18/2023 Start: 11-18-2022 End: 01-18-2023 Folate [Mass/volume] in Serum or Plasma FOLATE SERUM Lab Routine S/P bariatric surgery Impaired intestinal absorption Expected: 11/18/2022 (Approximate), Expires: 01/18/2023 [facility] Work Phone: Comment on above: Expected: 11/18/2022 (Approximate), Expi res: 01/18/2023 Start: 11-18-2022 End: 01-18-2023 Iron and Iron binding capacity panel - Serum or Plasma IRON + TIBC Lab Routine S/P bariatric surgery Impaired intestinal absorption Expected: 11/18/2022 (Approximate), Expires: 01/18/2023 [facility] Work Phone: Comment on above: Expected: 11/18/2022 (Approximate), Expi res: 01/18/2023 Start: 11-18-2022 End: 01-18-2023 Parathyrin.intact [Mass/volume] in Serum or Plasma PTH INTACT BLD Lab Routine S/P bariatric surgery Impaired intestinal absorption Expected: 11/18/2022 (Approximate), Expires: 01/18/2023 [facility] Work Phone: Comment on above: Expected: 11/18/2022 (Approximate), Expi res: 01/18/2023 Start: 11-18-2022 End: 01-18-2023 Retinol [Mass/volume] in Serum or Plasma VITAMIN A/RETINOL Lab Routine S/P bariatric surgery Impaired intestinal absorption Expected: 11/18/2022 (Approximate), Expires: 01/18/2023 [facility] Work Phone: Comment on above: Expected: 11/18/2022 (Approximate), Expi res: 01/18/2023 Start: 11-18-2022 End: 01-18-2023 VITAMIN B1 (THIAMINE), WHOLE BLOOD VITAMIN B1 (THIAMINE), WHOLE BLOOD Lab Routine S/P bariatric surgery Impaired intestinal absorption Expected: 11/18/2022 (Approximate), Expires: 01/18/2023 [facility] Work Phone: Comment on above: Expected: 11/18/2022 (Approximate), Expi res: 01/18/2023 Start: 11-18-2022 End: 01-18-2023 Zinc [Mass/volume] in Serum or Plasma ZINC BLD Lab Routine S/P bariatric surgery Impaired intestinal absorption Expected: 11/18/2022 (Approximate), Expires: 01/18/2023 [facility] Work Phone: Comment on above: Expected: 11/18/2022 (Approximate), Expi res: 01/18/2023 Start: 11-04-2022 End: 01-04-2023 Amylase [Enzymatic activity/volume] in Serum or Plasma [facility] Work Phone: Comment on above: Expected: 11/04/2022, Expires: 3 Start: 11-04-2022 End: 01-04-2023 Lipase [Enzymatic activity/volume] in Serum or Plasma [facility] Work Phone: Comment on above: Expected: 11/04/2022, Expires: 3 Start: 10-16-2022 Covid-19 Vaccine () Covid-19 Vaccine () [facility] Start: 10-16-2022 Influenza vaccination [facility] Start: 09-15-2022 Influenza vaccination Flu vaccine (#1) [facility] Start: 07-28-2022 End: 09-27-2022 CBC W Auto Differential panel - Blood CBC + DIFF Lab Routine Rash and nonspecific skin eruption Expected: 07/28/2022, Expires: 09/27/2022 [facility] Work Phone: Comment on above: Expected: 07/28/2022, Expires: 3 Start: 07-28-2022 End: 09-27-2022 Comprehensive metabolic 2000 panel - Serum or Plasma COMP METABOLIC PANEL Lab Routine Rash and nonspecific skin eruption Facial edema Expected: 07/28/2022, Expires: 09/27/2022 [facility] Work Phone: Comment on above: Expected: 07/28/2022, Expires: 3 Start: 06-12-2022 End: 08-12-2022 MISAEL BY IFA WITH REFLEX [facility] Work Phone: Comment on above: Expected: 06/12/2022, Expires: 3 Start: 06-12-2022 End: 08-12-2022 Borrelia burgdorferi IgG and IgM panel - Serum [facility] Work Phone: Comment on above: Expected: 06/12/2022, Expires: 3 Start: 06-12-2022 End: 08-12-2022 Cyclic citrullinated peptide IgG Ab [Units/volume] in Serum or Plasma [facility] Work Phone: Comment on above: Expected: 06/12/2022, Expires: 3 Start: 06-12-2022 End: 08-12-2022 MONOCLONAL PROTEIN, SERUM (BLOOD) [facility] Work Phone: Comment on above: Expected: 06/12/2022, Expires: 3 Start: 06-12-2022 End: 08-12-2022 Niacin [Mass/volume] in Serum or Plasma [facility] Work Phone: Comment on above: Expected: 06/12/2022, Expires: 3 Start: 06-12-2022 End: 08-12-2022 PROTEIN ELECTROPHORESIS SERUM W/INTERP [facility] Work Phone: Comment on above: Expected: 06/12/2022, Expires: 3 Start: 06-12-2022 End: 08-12-2022 Pyridoxine [Mass/volume] in Serum or Plasma [facility] Work Phone: Comment on above: Expected: 06/12/2022, Expires: 3 Start: 06-12-2022 End: 08-12-2022 VITAMIN B1 (THIAMINE), WHOLE BLOOD [facility] Work Phone: Comment on above: Expected: 06/12/2022, Expires: Start: 05-03-2022 End: 07-03-2022 25-hydroxyvitamin D3 [Mass/volume] in Serum or Plasma VITAMIN D 25 HYDROXY Lab Routine S/P gastric bypass Postoperative malabsorption Expected: 05/03/2022 (Approximate), Expires: 07/03/2022 [facility] Work Phone: Comment on above: Expected: 05/03/2022 (Approximate), Expi res: 07/03/2022 Start: 05-03-2022 End: 07-03-2022 CBC panel - Blood by Automated count CBC Lab Routine S/P gastric bypass Postoperative malabsorption Expected: 05/03/2022 (Approximate), Expires: 07/03/2022 [facility] Work Phone: Comment on above: Expected: 05/03/2022 (Approximate), Expi res: 07/03/2022 Start: 05-03-2022 End: 07-03-2022 Cobalamin (Vitamin B12) [Mass/volume] in Serum or Plasma VITAMIN B12 BLOOD Lab Routine S/P gastric bypass Postoperative malabsorption Expected: 05/03/2022 (Approximate), Expires: 07/03/2022 [facility] Work Phone: Comment on above: Expected: 05/03/2022 (Approximate), Expi res: 07/03/2022 Start: 05-03-2022 End: 07-03-2022 Comprehensive metabolic 2000 panel - Serum or Plasma COMP METABOLIC PANEL Lab Routine S/P gastric bypass Postoperative malabsorption Expected: 05/03/2022 (Approximate), Expires: 07/03/2022 [facility] Work Phone: Comment on above: Expected: 05/03/2022 (Approximate), Expi res: 07/03/2022 Start: 05-03-2022 End: 07-03-2022 Ferritin [Mass/volume] in Serum or Plasma FERRITIN BLD Lab Routine S/P gastric bypass Postoperative malabsorption Expected: 05/03/2022 (Approximate), Expires: 07/03/2022 [facility] Work Phone: Comment on above: Expected: 05/03/2022 (Approximate), Expi res: 07/03/2022 Start: 05-03-2022 End: 07-03-2022 Folate [Mass/volume] in Serum or Plasma FOLATE SERUM Lab Routine S/P gastric bypass Postoperative malabsorption Expected: 05/03/2022 (Approximate), Expires: 07/03/2022 [facility] Work Phone: Comment on above: Expected: 05/03/2022 (Approximate), Expi res: 07/03/2022 Start: 05-03-2022 End: 07-03-2022 Iron and Iron binding capacity panel - Serum or Plasma IRON + TIBC Lab Routine S/P gastric bypass Postoperative malabsorption Expected: 05/03/2022 (Approximate), Expires: 07/03/2022 [facility] Work Phone: Comment on above: Expected: 05/03/2022 (Approximate), Expi res: 07/03/2022 Start: 05-03-2022 End: 07-03-2022 Parathyrin.intact [Mass/volume] in Serum or Plasma PTH INTACT BLD Lab Routine S/P gastric bypass Postoperative malabsorption Expected: 05/03/2022 (Approximate), Expires: 07/03/2022 [facility] Work Phone: Comment on above: Expected: 05/03/2022 (Approximate), Expi res: 07/03/2022 Start: 05-03-2022 End: 07-03-2022 Thyrotropin [Units/volume] in Serum or Plasma TSH BLD Lab Routine S/P gastric bypass Postoperative malabsorption Expected: 05/03/2022 (Approximate), Expires: 07/03/2022 [facility] Work Phone: Comment on above: Expected: 05/03/2022 (Approximate), Expi res: 07/03/2022 Start: 05-03-2022 End: 07-03-2022 VITAMIN B1 (THIAMINE), WHOLE BLOOD VITAMIN B1 (THIAMINE), WHOLE BLOOD Lab Routine S/P gastric bypass Postoperative malabsorption Expected: 05/03/2022 (Approximate), Expires: 07/03/2022 [facility] Work Phone: Comment on above: Expected: 05/03/2022 (Approximate), Expi res: 07/03/2022 Start: 12-25-2021 End: 12-17-2022 PH HUERTA INSERT OFF MEDS PH HUERTA INSERT OFF MEDS Endoscopy Routine Regurgitation of food Gastroesophageal reflux disease, unspecified whether esophagitis present Expected: 12/25/2021, Expires: 12/17/2022 [facility] Work Phone: Comment on above: Expected: 12/25/2021, Expires: Start: 10-16-2021 Influenza vaccination [facility] Start: 10-09-2021 End: 12-09-2021 25-hydroxyvitamin D3 [Mass/volume] in Serum or Plasma VITAMIN D 25 HYDROXY Lab Routine S/P laparoscopic sleeve gastrectomy Expected: 10/09/2021, Expires: 12/09/2021 [facility] Work Phone: Comment on above: Expected: 10/09/2021, Expires: Start: 10-09-2021 End: 12-09-2021 Cobalamin (Vitamin B12) [Mass/volume] in Serum or Plasma VITAMIN B12 BLOOD Lab Routine S/P laparoscopic sleeve gastrectomy Expected: 10/09/2021, Expires: 12/09/2021 [facility] Work Phone: Comment on above: Expected: 10/09/2021, Expires: 2 Start: 10-09-2021 End: 12-09-2021 Ferritin [Mass/volume] in Serum or Plasma FERRITIN BLD Lab Routine S/P laparoscopic sleeve gastrectomy Expected: 10/09/2021, Expires: 12/09/2021 [facility] Work Phone: Comment on above: Expected: 10/09/2021, Expires: 2 Start: 10-09-2021 End: 12-09-2021 Folate [Mass/volume] in Serum or Plasma FOLATE SERUM Lab Routine S/P laparoscopic sleeve gastrectomy Expected: 10/09/2021, Expires: 12/09/2021 [facility] Work Phone: Comment on above: Expected: 10/09/2021, Expires: 2 Start: 10-09-2021 End: 12-09-2021 Hemoglobin A1c in Blood HGB A1C Lab Routine S/P laparoscopic sleeve gastrectomy Expected: 10/09/2021, Expires: 12/09/2021 [facility] Work Phone: Comment on above: Expected: 10/09/2021, Expires: 2 Start: 10-09-2021 End: 12-09-2021 Iron and Iron binding capacity panel - Serum or Plasma IRON + TIBC Lab Routine S/P laparoscopic sleeve gastrectomy Expected: 10/09/2021, Expires: 12/09/2021 [facility] Work Phone: Comment on above: Expected: 10/09/2021, Expires: 2 Start: 10-09-2021 End: 12-09-2021 Lipid 1996 panel - Serum or Plasma LIPID PANEL BASIC Lab Routine S/P laparoscopic sleeve gastrectomy Expected: 10/09/2021, Expires: 12/09/2021 [facility] Work Phone: Comment on above: Expected: 10/09/2021, Expires: 2 Start: 10-09-2021 End: 12-09-2021 Parathyrin.intact [Mass/volume] in Serum or Plasma PTH INTACT BLD Lab Routine S/P laparoscopic sleeve gastrectomy Expected: 10/09/2021, Expires: 12/09/2021 [facility] Work Phone: Comment on above: Expected: 10/09/2021, Expires: 2 Start: 10-09-2021 End: 12-09-2021 Thyrotropin [Units/volume] in Serum or Plasma TSH BLD Lab Routine S/P laparoscopic sleeve gastrectomy Expected: 10/09/2021, Expires: 12/09/2021 [facility] Work Phone: Comment on above: Expected: 10/09/2021, Expires: 2 Start: 10-09-2021 End: 12-09-2021 VITAMIN B1 (THIAMINE), WHOLE BLOOD VITAMIN B1 (THIAMINE), WHOLE BLOOD Lab Routine S/P laparoscopic sleeve gastrectomy Expected: 10/09/2021, Expires: 12/09/2021 [facility] Work Phone: Comment on above: Expected: 10/09/2021, Expires: 2 Start: 06-23-2021 End: 06-23-2021 Patient encounter procedure 06/23/2021 Office Visit Sports Medicine Belen Stovall MD [address] [id number] Sports Medicine Outpatient Care [facility] Start: 04-15-2021 COVID-19 VACCINE (3 - Booster for Woo series) COVID-19 VACCINE (3 - Booster for Woo series) [facility] Start: 10-16-2020 Influenza vaccination [facility] Start: 10-17-2019 Influenza vaccination INFLUENZA VACCINE (#1) [facility] Start: 2019 HPV TESTING HPV TESTING [facility] Start: 2019 Screening for malignant neoplasm of cervix [facility] Start: 2010 PAP TESTING PAP TESTING [facility] Start: 2010 Screening for malignant neoplasm of cervix [facility] Start: 2008 DTaP/Tdap/Td vaccine (1 - Tdap) DTaP/Tdap/Td vaccine (1 - Tdap) [employer] Work Phone: Start: 2008 Hepatitis A Vaccines (1 of 2 - Risk 2-dose series) Hepatitis A Vaccines (1 of 2 - Risk 2-dose series) [facility] Start: 2008 Hepatitis B Vaccine (1 of 3 - 19+ 3-dose series) Hepatitis B Vaccine (1 of 3 - 19+ 3-dose series) [facility] Start: 2008 Hepatitis B Vaccines (1 of 3 - 19+ 3-dose series) Hepatitis B Vaccines (1 of 3 - 19+ 3-dose series) [facility] Start: 2008 Third diphtheria, tetanus and acellular pertussis (DTaP) vaccination TDAP (ADULT) [facility] Start: 2008 Urine microalbumin profile DTAP,TDAP,TD (1 - Tdap) [facility] Start: 2007 ANNUAL PCP TEAM CHRONIC DISEASE VISIT ANNUAL PCP TEAM CHRONIC DISEASE VISIT [facility] Start: 2007 BP CONTROLLED (<130/80) BP CONTROLLED (<130/80) [facility] Start: 2007 HEPATITIS C SCREENING HEPATITIS C SCREENING [facility] Start: 2007 Hepatitis C screening [facility] Start: 2007 HIV SCREENING HIV SCREENING [facility] Start: 2007 HIV screening HIV Screening [facility] Start: 2007 SPIROMETRY SPIROMETRY [facility] Start: 2007 Tetanus vaccination TETANUS [facility] Start: 2004 HIV screening [facility] Start: 2002 HIV screening HIV SCREENING DISCUSSION [facility] [employer] [facility] Start: 2002 Varicella vaccination Varicella Vaccines (1 of 2 - 13+ 2-dose series) [facility] Start: 2001 COVID-19 VACCINE (1) COVID-19 VACCINE (1) [employer] Start: 2001 Depression Screen Depression Screen [facility] Start: 1995 PNEUMOCOCCAL (1 - PCV) PNEUMOCOCCAL (1 - PCV) [facility] Start: 1995 Pneumococcal vaccination Pneumococcal Vaccine (1 - PCV) [facility] Start: 1995 Pneumococcal Vaccine: Pediatrics (0 to 5 Years) and At-Risk Patients (6 to 64 Years) (1 of 2 - PCV) Pneumococcal Vaccine: Pediatrics (0 to 5 Years) and At-Risk Patients (6 to 64 Years) (1 of 2 - PCV) [facility] Start: 1990 MMR Vaccines (1 of 1 - Standard series) MMR Vaccines (1 of 1 - Standard series) [facility] Start: 1990 Varicella vaccination Varicella Vaccines (1 of 2 - 2-dose childhood series) [facility] Start: 1990 Varicella vaccine (1 of 2 - 2-dose childhood series) Varicella vaccine (1 of 2 - 2-dose childhood series) [facility] Start: 1989 HEPATITIS B (1 of 3 - 3-dose series) HEPATITIS B (1 of 3 - 3-dose series) [facility] Start: 1989 Hepatitis B Vaccine (1 of 3 - 3-dose series) Hepatitis B Vaccine (1 of 3 - 3-dose series) [facility] Start: 1989 Hepatitis B Vaccines (1 of 3 - 3-dose series) Hepatitis B Vaccines (1 of 3 - 3-dose series) [facility] Start: 1989 Hepatitis C antibody, confirmatory test HEPATITIS C VIRUS SCREENING [facility] Start: 1989 Hepatitis C screening [facility] Start: 1989 HIV screening HIV Screening [facility] Start: 1989 Lipid panel Lipid Panel [facility] Start: 1989 Thyroid stimulating hormone measurement TSH [facility] Start: 1989 TSH Qn TSH [facility] Start: 1989 Yearly Adult Physical Yearly Adult Physical [facility] End: 07-23-2023 ADULT [employer] ADULT [employer] Endoscopy Routine Constipation, unspecified constipation type 1 Occurrences starting 07/22/2022 until 07/23/2023 [facility] Work Phone: Comment on above: 1 Occurrences starting 07/22/2022 until 07/23/2023 End: 10-12-2024 ADULT [place] [employer]OM[employer]RY ADULT [place] [employer] Endoscopy Routine Abnormal defecation Constipation, unspecified constipation type 1 Occurrences starting 10/13/2023 until 10/12/2024 [facility] Work Phone: Comment on above: 1 Occurrences starting 10/13/2023 until 10/12/2024 End: 03-23-2023 Basic metabolic 2000 panel - Serum or Plasma Basic Metabolic Panel Lab Routine Morning draw (Lab) for 3 Occurrences starting 03/21/2023 until 03/23/2023 [facility] Work Phone: Comment on above: Morning draw (Lab) for 3 Occurrences sta rting 03/21/2023 until 03/23/2023 End: 03-12-2023 CBC panel - Blood by Automated count CBC Lab Routine Morning draw (Lab) for 3 Occurrences starting 03/10/2023 until 03/12/2023, 1 completed [facility] Work Phone: Comment on above: Morning draw (Lab) for 3 Occurrences sta rting 03/10/2023 until 03/12/2023, 1 completed End: 03-23-2023 CBC panel - Blood by Automated count CBC Lab Routine Morning draw (Lab) for 3 Occurrences starting 03/21/2023 until 03/23/2023 [facility] Work Phone: Comment on above: Morning draw (Lab) for 3 Occurrences sta rting 03/21/2023 until 03/23/2023 End: 03-16-2023 CBC W Auto Differential panel - Blood CBC and Auto Differential Lab STAT Once (Lab) for 1 Occurrences starting 03/16/2023 until 03/16/2023 [facility] Work Phone: Comment on above: Once (Lab) for 1 Occurrences starting until 03/16/2023 End: 03-16-2023 Comprehensive metabolic 2000 panel - Serum or Plasma Comprehensive metabolic panel Lab STAT STAT (Lab) for 1 Occurrences starting 03/16/2023 until 03/16/2023 [facility] Work Phone: Comment on above: STAT (Lab) for 1 Occurrences starting until 03/16/2023 End: 01-03-2024 Ct angio abd&plvis cntrst mtrl w/wo cntrst img CTA ABD/PEL W IVCON Radiology Routine Generalized abdominal pain 1 Occurrences starting 12/04/2022 until 01/03/2024 [facility] Work Phone: Comment on above: 1 Occurrences starting 12/04/2022 until 01/03/2024 ECG 12 Lead ECG 12 Lead ECG STAT As needed until discontinued starting 06/29/2023 [facility] Work Phone: Comment on above: As needed until discontinued starting ECG 12 Lead ECG 12 Lead ECG STAT 06/29/2023 8:50 PM EDT [facility] Work Phone: End: 01-28-2023 ECG COMPLETE ECG COMPLETE ECG Routine Pre-op evaluation 1 Occurrences starting 01/28/2022 until 01/28/2023 [facility] Work Phone: Comment on above: 1 Occurrences starting 01/28/2022 until 01/28/2023 End: 11-17-2022 EGD - THERAPEUTIC, EUS, OR TUBE INTERVENTIONS EGD - THERAPEUTIC, EUS, OR TUBE INTERVENTIONS Endoscopy Routine Gastroesophageal reflux disease without esophagitis 1 Occurrences starting 11/17/2021 until 11/17/2022 [facility] Work Phone: Comment on above: 1 Occurrences starting 11/17/2021 until 11/17/2022 End: 03-05-2023 EGD - THERAPEUTIC, EUS, OR TUBE INTERVENTIONS EGD - THERAPEUTIC, EUS, OR TUBE INTERVENTIONS Endoscopy Routine Esophageal dysphagia S/P gastric bypass 1 Occurrences starting 03/05/2022 until 03/05/2023 [facility] Work Phone: Comment on above: 1 Occurrences starting 03/05/2022 until 03/05/2023 End: 04-27-2024 EGD - THERAPEUTIC, EUS, OR TUBE INTERVENTIONS EGD - THERAPEUTIC, EUS, OR TUBE INTERVENTIONS Endoscopy Routine Gastroesophageal reflux disease, unspecified whether esophagitis present 1 Occurrences starting 04/28/2023 until 04/27/2024 [facility] Work Phone: Comment on above: 1 Occurrences starting 04/28/2023 until 04/27/2024 End: 10-09-2022 EGD BARIATRIC EGD BARIATRIC Endoscopy Routine Gastroesophageal reflux disease, unspecified whether esophagitis present Bariatric surgery status Class 1 obesity with serious comorbidity and body mass index (BMI) of 31.0 to 31.9 in adult, unspecified obesity type S/P laparoscopic sleeve gastrectomy 1 Occurrences starting 10/09/2021 until 10/09/2022 [facility] Work Phone: Comment on above: 1 Occurrences starting 10/09/2021 until 10/09/2022 End: 10-21-2023 EGD DIAGNOSTIC EGD DIAGNOSTIC Endoscopy Routine Epigastric pain 1 Occurrences starting 10/20/2022 until 10/21/2023 [facility] Work Phone: Comment on above: 1 Occurrences starting 10/20/2022 until 10/21/2023 End: 09-07-2024 EGD DIAGNOSTIC EGD DIAGNOSTIC Endoscopy Routine Multiple gastric ulcers 1 Occurrences starting 09/08/2023 until 09/07/2024 [facility] Work Phone: Comment on above: 1 Occurrences starting 09/08/2023 until 09/07/2024 Electrocardiogram, 12-lead PRN ACS symptoms Electrocardiogram, 12-lead PRN ACS symptoms ECG Routine As needed until discontinued starting 03/05/2023 [facility] Work Phone: Comment on above: As needed until discontinued starting Electrocardiogram, 12-lead PRN ACS symptoms Electrocardiogram, 12-lead PRN ACS symptoms ECG Routine 03/08/2023 10:45 AM EST [facility] Work Phone: Electrocardiogram, 12-lead PRN ACS symptoms [...] (Lab) until discontinued starting 03/05/2023, 30 completed [facility] Work Phone: Comment on above: Every 4 hours (Lab) until discontinued s tarting 03/05/2023, 30 completed Helicobacter pylori Ag [Presence] in Stool by Immunoassay HELICOBACTER PYLORI ANTIGEN BY EIA, STOOL Microbiology Routine Multiple gastric ulcers Ordered: 09/08/2023 [facility] Comment on above: Ordered: 09/08/2023 End: 12-04-2023 Hepatobil syst imag inc gb w/pharma intervenj NM HEPATOBILIARY W EF AND/OR RX Radiology Routine Nausea RUQ pain History of cholecystectomy 1 Occurrences starting 11/04/2022 until 12/04/2023 [facility] Work Phone: Comment on above: 1 Occurrences starting 11/04/2022 until 12/04/2023 End: 03-18-2023 Incentive spirometry Instruct Incentive spirometry Instruct Respiratory Care Routine Once for 1 Occurrences starting 03/18/2023 until 03/18/2023 [facility] Work Phone: Comment on above: Once for 1 Occurrences starting 03/18/19 until 03/18/2023 Injx anes celiac ple xus w/wo radiologic monitrng DIAG/THER NRV BLK CELIAC PLEXUS Procedures Routine Chronic pain syndrome Ordered: 01/11/2023 [facility] Work Phone: Comment on above: Ordered: 01/11/2023 IR CENTRAL CATHETER PLACEMENT IR CENTRAL CATHETER PLACEMENT Radiology Routine On total parenteral nutrition (TPN) Ordered: 10/13/2023 [facility] Comment on above: Ordered: 10/13/2023 End: 06-30-2023 Methicillin resistant Staphylococcus aureus [Presence] in Nose by Organism specific culture Staphylococcus Aureus/MRSA Colonization, Culture Microbiology Routine Once (Lab) for 1 Occurrences starting 06/30/2023 until 06/30/2023 [facility] Service Area Work Phone: Comment on above: Once (Lab) for 1 Occurrences starting until 06/30/2023 Patient Education [facility] Work Phone: Patient referral [facility] Work Phone: End: 04-27-2024 PH HUERTA INSERT ON MEDS PH HUERTA INSERT ON MEDS Endoscopy Routine Gastroesophageal reflux disease, unspecified whether esophagitis present 1 Occurrences starting 04/28/2023 until 04/27/2024 [facility] Work Phone: Comment on above: 1 Occurrences starting 04/28/2023 until 04/27/2024 End: 11-18-2022 PH IMPEDANCE INSERT OFF MEDS PH IMPEDANCE INSERT OFF MEDS Endoscopy Routine Gastroesophageal reflux disease without esophagitis S/P laparoscopic sleeve gastrectomy 1 Occurrences starting 11/19/2021 until 11/18/2022 [facility] Work Phone: Comment on above: 1 Occurrences starting 11/19/2021 until 11/18/2022 End: 03-05-2023 Pulse oximetry, continuous Pulse oximetry, continuous Respiratory Care Routine Continuous until discontinued starting 03/05/2023 [facility] Work Phone: Comment on above: Continuous until discontinued starting 0 03/05/2023 End: 06-30-2023 Pulse oximetry, continuous Pulse oximetry, continuous Respiratory Care Routine Continuous until discontinued starting 06/30/2023 [facility] Work Phone: Comment on above: Continuous until discontinued starting 0 06/30/2023 End: 10-18-2023 Radiologic exam upr gi trc double contrast study XR UPPER GI ROUTINE DOUBLE CONTRAST/AIR Radiology Routine S/P bariatric surgery Gastroesophageal reflux disease, unspecified whether esophagitis present 1 Occurrences starting 09/18/2022 until 10/18/2023 [facility] Work Phone: Comment on above: 1 Occurrences starting 09/18/2022 until 10/18/2023 End: 11-11-2024 RF Gastrointestinal tract upper Views W water soluble contrast PO XR DEFECOGRAPHY Radiology Timed Abnormal defecation S/P hysterectomy Endometriosis 1 Occurrences starting 10/13/2023 until 11/11/2024 [facility] Comment on above: 1 Occurrences starting 10/13/2023 until 11/11/2024 SURGICAL PATHOLOGY [facility] Work Phone: Comment on above: Release Upon Ordering for 1 Occurrences starting 12/25/2021, 1 completed Surgical pathology study [facility] Work Phone: Comment on above: Release Upon Ordering for 1 Occurrences starting 03/19/2023, 1 completed End: 03-10-2023 Urethral Catheter Removal Urethral Catheter Removal Procedures Routine Once for 1 Occurrences starting 03/10/2023 until 03/10/2023 [facility] Work Phone: Comment on above: Once for 1 Occurrences starting 03/10/19 until 03/10/2023 End: 07-03-2023 Urethral Catheter Removal Urethral Catheter Removal Procedures Routine Once for 1 Occurrences starting 07/03/2023 until 07/03/2023 [facility] Service Area Work Phone: Comment on above: Once for 1 Occurrences starting 07/03/19 until 07/03/2023 End: 12-04-2023 US ABD RIGHT UPPER QUADRANT US ABD RIGHT UPPER QUADRANT Radiology Routine Nausea RUQ pain History of cholecystectomy 1 Occurrences starting 11/04/2022 until 12/04/2023 [facility] Work Phone: Comment on above: 1 Occurrences starting 11/04/2022 until 12/04/2023 US ABD RIGHT UPPER QUADRANT US ABD RIGHT UPPER QUADRANT Radiology Routine Nausea RUQ pain History of cholecystectomy 11/04/2022 11:15 AM EDT [facility] Work Phone: End: 11-03-2024 US.doppler Renal vessels - bilateral US RENAL VENOUS [facility] Vascular Lab Routine [place]cracker phenomenon of renal vein 1 Occurrences starting 11/04/2023 until 11/03/2024 [facility] Work Phone: Comment on above: 1 Occurrences starting 11/04/2023 until 11/03/2024 End: 12-04-2023 XR KNEE GENERAL 4V AP BOTH/PA BOTH/LAT/MERC RIGHT XR KNEE GENERAL 4V AP BOTH/PA BOTH/LAT/MERC RIGHT Radiology Routine Right knee pain, unspecified chronicity 1 Occurrences starting 11/04/2022 until 12/04/2023 [facility] Work Phone: Comment on above: 1 Occurrences starting 11/04/2022 until 12/04/2023 [facility] c [facility] OR [facility] c [facility] c [facility] Immunizations Immunization Date Immunization Notes Care Provider [facility] 11-12-2022 influenza, injectabl e, quadrivalent, preservative free Deacon Kat MD Work Phone: [facility] 11-12-2022 influenza virus vaccine, unspecified formulation Deacon Kat MD Work Phone: [facility] 11-16-2021 influenza virus vaccine, unspecified formulation [facility] 02-18-2021 SARS-CoV-2 (COVID-19 ) mRNA [id number] vax [facility] Comment on above: Result Comment: 2022: TPVALL 01-01-2021 influenza virus vaccine, unspecified formulation [facility] 01-01-2021 influenza, seasonal, injectable Kuldip Yousif MD Work Phone: [facility] 12-25-2020 influenza virus vaccine, unspecified formulation Ashutosh Albright [facility] 12-25-2020 influenza, injectabl e, quadrivalent, preservative free Kuldip Yousif MD Work Phone: [facility] 06-23-2020 COVID-19 Vaccine Woo - Documentation Purposes Only Shanna June Other [facility] Comment on above: Result Comment: 2022: TPVAL 11-28-2018 influenza, seasonal, injectable Shanna June Other [facility] 11-28-2018 influenza virus vaccine, unspecified formulation Agustin Gustafson [facility] 09-21-2016 tetanus toxoid, redu lauren diphtheria toxoid, and acellular pertussis vaccine, adsorbed Kuldip Yousif MD Work Phone: [facility] Payers Date Payer Category Payer Unknown [id number] 2023 Self-pay [id number] 2020 Private Health Insurance 1.2 .840.470934.1.13.172.2. 7.3.571240.315 2020 Private Health Insurance [facility] [id number] 2020-Present [phone] [address] [address] [place] [address] O [id number] 1.2.840.589952.1.13.159.2. 7.3.750694.315 2017 Unknown 2017 Unknown [employer] M MO [id number] 2017-Present [id number] 1.2.840.432137.1.13.172.2. 7.3.825547.315 1989 Unknown [id number] 2.16.840.1.757231.3.579.2. 594 1989 Unknown [id number] 2.16.840.1.828049.3.579.2. 594 1989 Unknown [id number] 2.16.840.1.371355.3.579.2. 593 1989 Unknown [id number] 2.16.840.1.137377.3.579.2. 593 1989 Unknown [id number] 2.16.840.1.786993.3.579.2. 593 1989 Unknown [id number] 2.16.840.1.815150.3.579.2. 593 1989 Unknown [id number] 2.16.840.1.868581.3.579.2. 593 1989 Unknown [id number] 2.16.840.1.578342.3.579.2. 593 1989 Unknown [id number] 2.16.840.1.617340.3.579.2. 593 1989 Unknown [id number] 2.16.840.1.386474.3.579.2. 593 1989 Unknown [id number] 2.16.840.1.164092.3.579.2. 593 1989 Unknown [id number] 2.16.840.1.602645.3.579.2. 593 1989 Unknown [id number] 2.16.840.1.589409.3.579.2. 593 1989 Unknown [id number] 2.16.840.1.580609.3.579.2. 593 1989 Unknown [id number] 2.16.840.1.329888.3.579.2. 173 1989 Unknown [id number] 2.16.840.1.661000.3.579.2. 173 1989 Unknown [id number] 2.16.840.1.396117.3.579.2. 173 1989 Unknown [id number] 2.16.840.1.843753.3.579.2. 983 1989 Unknown [id number] 2.16.840.1.055387.3.579.2. 196 1989 Unknown [id number] 2.16.840.1.837977.3.579.2. 182 1989 Unknown [id number] 2.16.840.1.975053.3.579.2. 182 1989 Unknown [id number] 2.16.840.1.322498.3.579.2. 1243 1989 Unknown [id number] 2.16.840.1.923654.3.579.2. 1245 1989 Unknown [id number] 2.16.840.1.910713.3.579.2. 9 1989 Unknown [id number] 2.16.840.1.647623.3.579.2. 9 1989 Unknown [id number] 2.16.840.1.571334.3.579.2. 9 1989 Unknown [id number] 2.16.840.1.150962.3.579.2. 9 1989 Unknown [id number] 2.16.840.1.131008.3.579.2. 1259 1989 Unknown [id number] 2.16.840.1.609389.3.579.2. 9 1989 Unknown [id number] 2.16.840.1.041327.3.579.2. 9 1989 Unknown [id number] 2.16.840.1.728195.3.579.2. 1259 1989 Unknown [id number] 2.16.840.1.450919.3.579.2. 1259 1989 Unknown [id number] 2.16.840.1.854833.3.579.2. 1243 1989 Unknown [id number] 2.16.840.1.408404.3.579.2. 1243 1989 Unknown [id number] 2.16.840.1.378609.3.579.2. 1243 1989 Unknown [id number] 2.16.840.1.229306.3.579.2. 1243 1989 Unknown [id number] 2.16.840.1.902109.3.579.2. 1243 1989 Unknown [id number] 2.16.840.1.020442.3.579.2. 1243 1989 Unknown [id number] 2.840.1.435609.3.579.2. 1243 1989 Unknown [id number] 2.16.840.1.574256.3.579.2. 1243 1989 Unknown [id number] 2.16.840.1.739626.3.579.2. 1243 1989 Unknown [id number] 2.16.840.1.985742.3.579.2. 1243 1989 Unknown [id number] 2.840.1.833531.3.579.2. 1243 1989 Unknown [id number] 2.16.840.1.169344.3.579.2. 1243 1989 Unknown [id number] 2.16.840.1.185300.3.579.2. 1243 1989 Unknown [id number] 2.16.840.1.208617.3.579.2. 1989 Unknown [id number] 2.16.840.1.617633.3.579.2. 7 1989 Unknown [id number] 2.16.840.1.761642.3.579.2 1989 Unknown [id number] 2.16.840.1.837761.3.579.2 1989 Unknown [id number] 2.16.840.1.759974.3.579.2 1989 Unknown [id number] 2.16.840.1.678782.3.579.2 1989 Unknown [id number] 2.16.840.1.629998.3.579.2 1989 Unknown [id number] 2.16.840.1.884897.3.579. 1989 Unknown [id number] 2.16.840.1.731964.3.579. 1989 Unknown [id number] 2.16.840.1.584178.3.579.2 1989 Unknown [id number] 2.16.840.1.878961.3.579. 1989 Unknown [id number] 2.16.840.1.685448.3.579. 1989 Unknown [id number] 2.16.840.1.622592.3.579.2 1989 Unknown [id number] 2.16.840.1.573841.3.579.2 1989 Unknown [id number] 2.16.840.1.830470.3.579.2 1989 Unknown [id number] 2.16.840.1.428324.3.579.2 1989 Unknown [id number] 2.16.840.1.623258.3.579.2 1989 Unknown [id number] 2.16.840.1.645053.3.579.2 1989 Unknown [id number] 2.16.840.1.425491.3.579.2. 727 1989 Unknown [id number] 2.16.840.1.865086.3.579.2. 727 1989 Unknown [id number] 2.16.840.1.506519.3.579.2. 7 1989 Unknown [id number] 2.16.840.1.692436.3.579.2. 1989 Unknown [id number] 2.16.840.1.067415.3.579.2. 1989 Unknown [id number] 2.16.840.1.521325.3.579.2. 1989 Unknown [id number] 2..840.1.161017.3.579.2. 1989 Unknown [id number] 2..840.1.918572.3.579.2 1989 Unknown [id number] 2..840.1.270439.3.579.2. 727 1959 Unknown [id number] 1.2.840.079498.1.13.239.2. 7.3.854047.315 1959 Unknown [id number] Unknown [id number] 2.16.840.1.125746.3.579.2. 531 Unknown [id number] 2.16.840.1.775406.3.579.2. 531 Unknown [id number] 2.16.840.1.037126.3.579.2. 531 Unknown [id number] 2.16.840.1.543769.3.579.2. 531 Unknown [id number] 2.16.840.1.139499.3.579.2. 531 Unknown [id number] 2.16.840.1.235808.3.579.2. 531 Unknown [id number] 2.16.840.1.493213.3.579.2. 531 Social History Date Type Detail Facility Start: 01-30-2020 End: 06-02-2023 Tobacco smoking status NHIS Never smoker [facility] Start: 01-30-2020 End: 01-28-2022 Tobacco use and exposure Never used [facility] Start: 01-30-2020 End: 11-02-2022 Alcohol intake Current non-drinker of alcohol (finding) [facility] Start: 1990 Sex Assigned At Not on file A [facility] Start: 06-08-2021 End: 06-29-2023 Exposure to SARS-CoV-2 (event) Not sure [facility] Start: 05-06-2021 End: 11-01-2023 Alcohol intake Ex-drinker (finding) [facility] Start: 10-16-2019 End: 06-20-2022 History SDOH Financial 5 [facility] Start: 10-16-2019 End: 06-20-2022 History SDOH Food Worry 1 [facility] Start: 10-16-2019 End: 06-20-2022 History SDOH Transport Med 2 [facility] Start: 10-15-2019 Education 18 [facility] Start: 06-17-2022 End: 09-18-2022 Sex Assigned At [facility] Start: 10-04-2021 End: 01-01-2022 Exposure to SARS-CoV-2 (event) Unable to assess [facility] Tobacco smoking status Never [facility] Start: 06-17-2022 End: 09-18-2022 History of Social function [facility] Work Phone: (I/We) worried law er (my/our) food would run out before (I/we) got money to buy more. Never true [facility] Work Phone: In the past 12 month s, was there a time when you were not able to pay the mortgage or rent on time? No [facility] Work Phone: Do you belong to any clubs or organizations such as temple groups, unions, fraternal or athletic groups, or school groups? Yes [facility] Are you now , , , , never or living with a partner? [facility] How often to you hav e a drink containing alcohol? Never [facility] How hard is it for y ou to pay for the very basics like food, housing, medical care, and heating Somewhat hard [facility] Do you feel stress - tense, restless, nervous, or anxious, or unable to sleep at night because your mind is troubled all the time - these days [OSQ] To some extent [facility] Start: 11-12-2017 Gender identity Identifies as female gender (finding) [facility] How hard is it for y ou to pay for the very basics like food, housing, medical care, and heating Hard [facility] (I/We) worried law er (my/our) food would run out before (I/we) got money to buy more. Sometimes true [facility] Start: 1990 Sex Assigned At Female F [facility] How hard is it for y ou to pay for the very basics like food, housing, medical care, and heating Not very hard [facility] Work Phone: Start: 03-02-2023 Sexual orientation Heterosexual (graham rosado) [facility] Work Phone: Tobacco [facility] Comment on above: denies Tobacco smoking status No Smokin g Status Entered [facility] Do you feel stress - tense, restless, nervous, or anxious, or unable to sleep at night because your mind is troubled all the time - these days [OSQ] Rather much [facility] Work Phone: NEGATED: Highlighted row [facility] Medical Equipment Procedure Code Equipment Code Equipment Origin al Text Equipment Identifier Dates Fibertak Hip Yoanna f Bunching Kl Pomerene 1.8mm [id number] Start: 07-10-2021 Fibertak Hip Yoanna f Bunching Kl Pomerene 1.8mm [id number] Start: 07-10-2021 Fibertak Hip Yoanna f Bunching Kl Pomerene 1.8mm [id number] Start: 07-10-2021 Fibertak Hip Yoanna f Bunching Kl Pomerene 1.8mm [id number] Start: 07-10-2021 Membrane, Sepraf ilm, 5 X 6 In - [id number] Start: 03-05-2023 One touch Verio strips for One Touch Verio meter; test 4 times a day [id number] Start: 01-16-2019 End: 03-10-2023 Catheter Hodges Surecuff 9.6fr 3.2mm 1.6mm 2 Branch 90cm Central Venous 1 - [id number] Start: 10-15-2023 Functional Status Date Assessment Result Facility 11-04-2023 Functional Status N/A [facility] 07-17-2023 Functional status Patient at Baseline [facility] Work Phone: 05-17-2023 Functional Status N/A [facility] 05-12-2023 Functional Status No [facility] 05-12-2023 Functional Status [facility] 05-11-2023 Functional Status N/A [facility] 05-09-2023 Functional Status N/A [facility] 05-06-2023 Functional Status N/A [facility] 04-02-2023 Functional Status N/A [facility] 03-16-2023 Functional Status N/A [facility] 03-15-2023 Functional Status N/A [facility] 12-31-2022 Functional Status N/A [facility] 10-20-2022 Functional Status N/A [facility] 10-19-2022 Functional Status N/A [facility] 07-29-2022 Functional Status N/A [facility] 06-10-2022 Functional Status N/A [facility] Mental Status Date Assessment Result Facility 07-17-2023 Cognitive function Cognitive Sta tus Patient at Baseline [facility] Work Phone: Clinical Notes 07-09-2019 to 11-04-2023 Note Date & Type Note Facility 11-04-2023 Hospital Discharg e instructions Patient Education 11/04/2023 14:45:05 Chest Wall Pain Chest Wall Pain Chest wall pain is pain in or around the bones and muscles of your chest. Sometimes, an injury causes this pain. Excessive coughing or overuse of arm and chest muscles may also cause chest wall pain. Sometimes, the cause may not be known. This pain may take several weeks or longer to get better. Follow these instructions at home: Managing pain, stiffness, and swelling If directed, put ice on the painful area: ?Put ice in a plastic bag. ?Place a towel between your skin and the bag. ?Leave the ice on for 20 minutes, 2 3 times per day. Activity Rest as told by your health care provider. Avoid activities that cause pain. These include any activities that use your chest muscles or your abdominal and side muscles to lift heavy items. Ask your health care provider what activities are safe for you. General instructions Take srmc-zsg-lhgjvyk and prescription medicines only as told by your health care provider. Do not use any products that contain nicotine or tobacco, such as cigarettes, e-cigarettes, and chewing tobacco. These can delay healing after injury. If you need help quitting, ask your health care provider. Keep all follow-up visits as told by your health care provider. This is important. Contact a health care provider if: You have a fever. Your chest pain becomes worse. You have new symptoms. Get help right away if: You have nausea or vomiting. You feel sweaty or light-headed. You have a cough with mucus from your lungs (sputum) or you cough up blood. You develop shortness of breath. These symptoms may represent a serious problem that is an emergency. Do not wait to see if the symptoms will go away. Get medical help right away. Call your local emergency services (911 in the [place] Do not drive yourself to the hospital. Summary Chest wall pain is pain in or around the bones and muscles of your chest. Depending on the cause, it may be treated with ice, rest, medicines, and avoiding activities that cause pain. Contact a health care provider if you have a fever, worsening chest pain, or new symptoms. Get help right away if you feel light-headed or you develop shortness of breath. These symptoms may be an emergency. This information is not intended to replace advice given to you by your health care provider. Make sure you discuss any questions you have with your health care provider. Document Revised: 01/25/2023 Document Reviewed: 01/25/2023 Appy Couple Patient Education 2023 Ping4. Follow Up Care 11/04/2023 10:40:57 With:Thomas Calix Address: [address] [place] [address] [place] [address]- Business (1) When:11/07/2023 14:36:27 [facility] 11-04-2023 Evaluation + Plan note Extrac darvin from: Title:ED Note Author:Blanca QUIROZ, Lonnie Arroyo te:11/04/23 Chest pain (R07.9: Chest l[place] n, unspecified) Muscle spasm (M62.838: Other muscle spasm) Orders: diazepam, 5 mg = 1 tab(s), Tab, Oral, Once, Stop date 11/04/23 11:45:00 EDT, STAT, Start date 11/04/23 11:45:00 EDT, 11/04/23 11:45:00 EDT methocarbamol, 1,500 mg = 2 tab(s), Oral, TID, X 3 day(s), # 18 tab(s), Refills(s) 0, Pharmacy: [facility]/pharmacy #[id number], 167, cm, 11/04/23 10:46:00 EDT, Height/Length Dosing, 89.3, kg, 11/04/23 10:46:00 EDT, Weight Dosing oxycodone, 5 mg = 1 tab(s), Tab, Oral, Once, Stop date 11/04/23 11:10:00 EDT, STAT, Start date 11/04/23 11:10:00 EDT, 11/04/23 11:10:00 EDT XR Chest Single View [facility] [id number] Telephone encounter Note* Telephone Encounter - Imelda Gonzalez - 11/04/2023 10:34 AM EDT Lvm advising to call back to schedule, also replied to web appointment request to call us back. 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 * Telephone Encounter - Imelda Gonzalez - 11/04/2023 10:34 AM EDT Webappointment request Reason for Appointment: Nutcracker syndrome [facility] History of Present illness Narrative* Bailey Mckeon RN - 11/03/2023 1:45 PM EDT Patient referred to Blood Management for evaluation and treatment of pre- surgical anemia and/or iron deficiency. 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 nut.tx.impaired digest fxn (PEPTAMEN 1.5) 0.068 gram- 1.5 kcal/mL 1,100 mL by FEEDING TUBE route once daily. Peptamen 1.5 TF at 50 ml/hr goal rate x 22 hrs. Flush 30 ml q 4 hrs. Pt is to start at 10 ml/hr and adv as tolerated. ondansetron orally disintegrating (ZOFRAN ODT) 4 mg disintegrating tablet Dissolve 1 tablet on the tongue every 8 hours as needed for nausea or vomiting. predniSONE EC 5 mg Delayed Release Tab [...] 8 hours. Please do not take this ifsystolic blood pressure greater than 110. Please discuss [...] Inhale 1 Puff as instructed every 12hours. topiramate (TOPAMAX) 100 mg tablet Take 100 mg by mouth two times a day. liothyronine (CYTOMEL) 5 mcg tablet Take 5 mcg by mouth once daily. No current facility-administered medications for this visit. Current medications that may affect iron absorption and/or blood loss: - Antacids (H2 receptor blockers, PPI) and - Levothyroxine (Synthroid) Baseline laboratory values: Non-EPIC labs: 10/28/23 WBC (K/uL): 5.1 (4-11) Hgb (g/dL): 10.5 (L: 12-16) Hct (%): 33.5 (L: 36-48) MCV (fL): 84.6 (81-99) RDW (%): 14.5 (11-15) Platelet (K/uL): 317 (150-450) Serum Iron (ug/dL): 48 (L: 50-170) Transferrin Saturat (%): 13.2 Ferritin (mg/dL): 6 (L: 8-252) TIBC (ug/dL): 364 (250-450) Assess for the need to augment a patient s natural red blood cell production: - Blood transfusion avoidance - Iron depletion Recommendations according to Blood Management patient care guidelines: - Other: Total iron deficit using Ganzoni equation = 762 mg (wt 84 kg/goal hgb 12 g/dL) Recommend Injectafer 750 mg IV x 1 dose. Clinical information is sent to a provider for review and evaluation for treatment. [facility] Telephone encounter Note * Telephone Encounter - Grecia Arcos - 11/02/2023 9:14 AM EDT Last visit 09/08/23 Grecia Wallace [facility]09-17-2024 Miscellaneous Notes* Telephone Encounter - Grecia Arcos - 11/02/2023 9:14 AM EDT Last visit 09/08/23 Grecia Wallace documented in [facility] encounterThe [facility]09-[facility] Nurse Note* Alla Mckeon RN - 11/01/2023 8:45 AM EDT AMBULATORY PATIENT EDUCATION NOTE TOPIC: GI PROCEDURES: Esophagogastroduodenoscopy(EGD) with or without biopies based on clinical findings, removal of polyps or lesions READINESS TO LEARN INSTRUCTION PROVIDED TO: Patient, readness to learn accessed prior to procedure, Family member, andPatient and family member COGNITIVE ABILITY: Alert and [...] Procedure Discharge Instructions REFERRAL (RECOMMENDATION): None [facility]09-16-2024 Nurse Note* Alla Mckeon RN - 11/01/2023 8:45 AM EDT AMBULATORY PATIENT EDUCATION NOTE TOPIC: GI PROCEDURES: Esophagogastroduodenoscopy(EGD) with or without biopies based on clinical findings, removal of polyps or lesions READINESS TO LEARN INSTRUCTION PROVIDED TO: Patient, readness to learn accessed prior to procedure, Family member, andPatient and family member COGNITIVE ABILITY: Alert and [...] Procedure Discharge Instructions REFERRAL (RECOMMENDATION): None * Santa Raymundo RN - 11/01/2023 7:49 AM EDT PRE OP LEARNING ASSESSMENT PROCEDURE/SURGERY: GI PROCEDURES: EGD READINESS TO LEARN COGNITIVE ABILITY: Alert and oriented MOTIVATION TO LEARN: Interested FAMILY SUPPORT: High - Very involved in pt care PATIENT LEARNS BEST BY: Individual Instruction FACTORS AFFECTING LEARNING: None PHYSICAL LIMITATIONS AFFECTING LEARNING: None Electronically Signed By: Santa Raymundo RN In Department: GASTROENTEROLOGY documented in [facility] encounterThe [facility] NoteQ3 Patient Name: Abbey Garcia Procedure Date: 11/01/2023 8:00 AM Date of : 1990 Admit Type: Outpatient Age: 33 Gender: Female Note Status: Finalized Attending MD: Chichi Miller MD, [id number] Procedure: Upper GI endoscopy Indications: Heartburn Providers: Chichi Miller MD Patient Profile: This is a 33 year old female. Refer to note in patient chart for documentation of history and physical. Referring Physician: Kasie Avalos MD (Referring MD) Medicines: Monitored Anesthesia Care Complications: No immediate complications. Requesting Provider: Anotnieta Rosario Pacmichael Procedure: Pre-Anesthesia Assessment: - Prior to the procedure, a History and Physical was performed, and patient medications, allergies and sensitivities were reviewed. The patient's tolerance of previous anesthesia was reviewed. - ASA Grade Assessment: II - A patient with mild systemic disease. After obtaining informed consent, the endoscope was passed under direct vision. Throughout the procedure, the patient's blood pressure, pulse, and oxygen saturations were monitored continuously. The Endoscope was introduced through the mouth, and advanced to the jejunum. The upper GI endoscopy was accomplished without difficulty. The patient tolerated the procedure well. Moderate Sedation: MAC anesthesia was administered by the anesthesia team. Findings: LA Grade A (one or more mucosal breaks less than 5 mm, not extending between tops of 2 mucosal folds) esophagitis was found in the lower third of the esophagus. Evidence of a Tan-en-Y gastric bypass (RYGB) was found. The gastrojejunal anastomosis (GJA) was characterized by normal appearing mucosa. No ulcers, erosion, sutures or nicholas. The GJA outlet was dilated 20 mm diameter and was traversed. The gastric pouch extended from 35cm to 39 cm from the incisors. No gastro-gastric fistula was found. The jejunum was normal at 60 cm (both Tan/alimentary and blind limbs). No food or debris in the blind limb. The examined jejunum was normal. Impression: - LA Grade A esophagitis. Persistent esophagitis. - No hiatal hernia. - Tan-en-Y gastric bypass with healthy gastrojejunal anastomosis. Prior marginal ulcer has resolved. - Normal examined jejunum. - No specimens collected. Estimated Blood Loss: Estimated blood loss: none. Recommendation: - Discharge patient to home (ambulatory). - Resume previous diet today. - Continue present medications. - Await pathology results. - Continue PPI medication (IC-PPI): omeprazole 40 mg twice per day. But this time please Open the capsule and mix with apple sauce, then take 30 minutes before breakfast and 30 minutes before dinner. - Avoid smoking/vaping, alcohol intake, NSAIDs (ibuprofen/motrin/advil, naproxen, or similars) - Follow up for Persistent post-bariatric GERD with Dr. Miller or Antonieta Iniguez CNP in 4-6 weeks in GI/Bariatric Endoscopy clinic. Please call for appointments [phone] or [phone]. - Patient has a contact number available for emergencies. The signs and symptoms of potential delayed complications were discussed with the patient. Return to normal activities tomorrow. Written discharge instructions were provided to the patient. Procedure Code(s): --- Professional --- 73659 Diagnosis Code(s): --- Professional --- K20.90 R12 CPT copyright 2020 [employer]. All rights reserved. Attending Participation: I personally performed the entire procedure. Scope In: 8:16:09 AM Scope Out: 8:18:[address] Chichi Miller MD 11/01/2023 8:24:33 AM This report has been signed electronically by Chichi Miller MD Number of Addenda: 0 Note Initiated (more content not included)...[id number] Nurse Note* Santa Raymundo RN - 11/01/2023 7:49 AM EDT PRE OP LEARNING ASSESSMENT PROCEDURE/SURGERY: GI PROCEDURES: EGD READINESS TO LEARN COGNITIVE ABILITY: Alert and oriented MOTIVATION TO LEARN: Interested FAMILY SUPPORT: High - Very involved in pt care PATIENT LEARNS BEST BY: Individual Instruction FACTORS AFFECTING LEARNING: None PHYSICAL LIMITATIONS AFFECTING LEARNING: None Electronically Signed By: Santa Raymundo RN In Department: GASTROENTEROLOGY [facility]09-04-2024 [facility] History of Present illness Narrative* Breanna Stern, 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 - 10/20/2023 2:02 PM EDT Assessment Postoperative Visit Virtual visit I have communicated my name and active licensure. The patient's identity and physical location wereverified at the time of this visit. Either the patient or their legal procurement representative has been informed of the risks and benefits of -- and alternatives to -- treatment through a remote evaluation andconsents to proceed with the evaluation remotely. HPI: Follow up diagnostic lap for evaluation of abdominal pain. Pt was readmitted on 10/10/23 for worsening abdominal pain, diagnosed with small bowel ileus, was treated conservatively. 10/15/23 central line placement to enable TPN infusion Currently taking TPN, small volume TF and some oral nutrition (liquids) Date of Surgery: 10/07/23 Surgeon: Jacquelyn Surgery: Diagnostic laparoscopy, enteropexy around J-tube. Post Op Diagnosis: 1. History of gastrojejunostomy. 2. Abdominal pain. 3. No internal hernia. OPERATIVE FINDINGS: She had no intraabdominal adhesions and inframesocolic space. There were adhesions between the left lobe of the liver and the stomach and stomach pouch. Her jejunostomy tube was in place. There was not a wide pexy around the jejunostomy tube because I suspect that the previouslyseen swirl have been the small intestine turning on the J-tube. So, at point of fixation of the abdominal wall, I performed an enteropexy proximally and distally to the J-tube to hold the Tan limb straight and prevent this from recurring. Surgical Pathology: none Subjective: - no post surgical pain - feeling pretty good today - no constipation or diarrhea Physical examination: LMP 08/19/2020 - virtual visit A&O, pleasant, NAD Abdomen: no apparent distention Incisions: appear well approximated, no drainage, erythema. + resolving bruising Impression and plan: Abbey Garcia is a 33 year old yo woman, s/p Diagnostic laparoscopy, enteropexy around J-tube. - overall improvement since surgery - working with Gut rehab for help with nutritional intake Patient can go back to a regular routine at this time. I have asked the patient to continue weight lifting restrictions up to 10 pounds for a total of 3-4 weeks. Follow up: with Dr Kat as scheduled 11/08/23 Breanna Stern APRN.OFFSHORE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 documented in [facility]The [facility] Telephone encounter Note * Telephone Encounter - Yaneth Mitchell MA - 10/15/2023 8:37 AM EDT Form was faxed over today. Yaneth Mitchell MA [facility]08-30-2024 Miscellaneous Notes* Telephone Encounter - Yaneth Mitchell MA - 10/15/2023 8:37 AM EDT Form was faxed over today. Yaneth Mitchell MA documented in this encounterThe [facility]08-28-[facility] History of Present illness Narrative* Jinny Neely RD - 10/13/2023 3:28 PM EDT Nutrition Assessment Intake: Appetite is poor. Patient reports on a good day she can eat small amounts of food (cottage cheese, chicken salad) and on bad days she will only take Boost or Premier Protein nutrition supplements. She reports she will sip on these throughout the day, but can only drink 1 per day. Some days she will not eat at all due to inability to tolerate po. She has chronic abdominal pain (usually 5/10) which is worse with po intake. She frequently will have nausea and vomiting after eating, and if not having vomiting then she will have dry heaving. This is not nutritionally adequate as patient relies on PN to meet needs. Patient drinks ~1.7 liters of fluid daily on a good day, but some days sheis unable to keep fluids down. Diet recall: Bites of a couple foods (cottage cheese, chicken salad). Will take Boost or Premier Protein when unable to eat any food. Beverages: water (48 oz), on occasion 8 oz coffee, 8 oz ONS Patient has been on home PN since 05/2023 for a condition of inability to tolerate po intake (N/V, abdominal pain) and increased diarrhea & nausea with EN. Plans are to continue with PN until patient transitions to adequate oral/ enteral nutrition. Patient reports no problems with TPN infusionsat this time. Patient reports no fevers at home. Patient reports blood sugars dropping into 30-50's. Will have confusion, shakiness. Low blood sugarlevels occur during PN infusions and off of PN infusions. Hypoglycemia started in 08/2023 and was started on prednisone 15 mg daily, however still experiencing lows. PN: Patient takes 2.3 liters of PN over 16 hr (1 hr up/ 2 hr down) 7 days per week. PN provides 90 g AA, 952 kcals dextrose, Intralipid 250 ml 4x per week. Patient receives a total of 1597 average daily calories ( 18.4 kcal/kg) PN Order: AA 90 g Dextrose 952 kcals Ca 10 mEq Mg 14 mEq KAce 70 mEq NaPO4 30 mmol Na Ivan 55 mEq MVI 10 ml Tralement 1 ml IVF: Patient is using 2 additional IVF bags per week. Patient reports using on days she cannot drink as much orally (will feel like she is dehydrated on these days). This is managed by Dr. Thomas Calix Home Care: [facility] and IV Pharmacy: [facility] [phone] Output: patient reports she had a catheter in the hospital due to retaining urine, but now urinating well currently. Color is clear to pale yellow. On a good day will have 3-4 BM's per day and on badday will have 12-13 BM's. Patient reports she will have constipation intermittently and not go at all. Currently taking Linzess daily. She reports if she did not take Linzess or colace then she wouldnot have a BM for 1 week. Pt reports constipation worsened in 2019 during 3rd . The outputis usually soft, but will be watery on bad days (when having 12-13 BM's). Question if this is overflow diarrhea given hx of SBO. Relation to food/ fluid not related. + bloating, abdominal distention. Anthropometrics: Height: 5'6 (167.6 cm) Weight: 181 lb (10/06/23); 175 lb (09/18/23); 175 lb (08/26/23); 181 lb (07/16/23); 170 lb (06/18/23); 165lb (06/06/23); 175 lb (04/28/23); 184 lb (12/04/22) Usual weight: 175-180 lb Highest weight: 275 lb - pre-gastric sleeve Lowest weight: 165 lb Goal weight: maintain CBW BMI: 29.16- overweight Weight has increased by 16 lb over 4 months representing 9.7 % weight change. Wt has increased backto UBW since restarting TPN. Estimated Daily Nutritional Needs: 1650 - 2060 kcals/day = 20 - 25 kcals/kg dosing weight 98 - 123 g protein/day = 1.2-1.5 g/kg dosing weight Nutrition Focused Physical Exam: Subcutaneous Fat Loss: Orbital: None Triceps: None Mid-axillary at the iliac crest: None Muscle Loss Locations: Temporalis: None Pectoralis: None Deltoids: None Interosseous: None Latissimus dorsi, trapezius: None Quadriceps: None Gastrocnemius: None Ascites: No Edema: No Functional status: No functional impairment, normal with no limitations Potential Signs of Inflammation: chronic condition Potential micronutrient deficiency revealed in No deficiency identified ASSESSMENT OF MALNUTRITION: NO MALNUTRITION IDENTIFIED Jinny Neely RD Billing increments 4 units 10/13/23 documented in this encounterThe [facility] Hospital08-28-2024 Instructions* Patient Instructions* Georgina Carrillo MD - 10/13/2023 1:41 PM EDT MECHANICALLY ALTERED DIET This diet consists of foods that are mechanically altered by blending, grinding, mashing and pureeing. You may need this diet if you have small bowel obstructions and strictures. General Guidelines You will use a green coffee blender or food service employee to prepare most of your foods. Most foods can be liquefied by mixing equal parts of solids and liquids. Try adding a liquid that will enhance flavor like gravy, broth, sauce, syrup, fruit juice, soups, milk, ice cream, or salad dressing. Blended foods can be kept in the refrigerator for 48 hours or frozen for later use. Eat 5-6 times per day as it's more difficult to eat enough food on this diet to prevent excessive weight loss and to promote healthy immune/wound healing functioning. A liquid or chewable multivitamin with mineral supplement is recommended. You may need to supplement intakes with an oral nutrition supplement such as Ensure Enlive, Boost Plus, Orgain, or Vital Peptide. You can also purchase your own high calorie, high protein powder and blend with foods of your choosing for flavor. If you are lactose intolerant, consider using dairy alternatives like soymilk and rice milk. Almondand coconut milks have less protein and total calories, but are still better choices than water foradded nutrition. Tips to better meet nutritional needs Add margarine, butter, oil, sour cream, mayonnaise, cream cheese, and sauces to savory foods. Add whipping cream, half and half, melted chocolate bars, syrups, ice cream, whole milk, and honey to sweet foods. Good protein choices Good carb and fat choices Eggs: boiled, poached, fried, scrambled Yogurt: whole fat or 2% Salvadorean or [place] Verdean yogurts Cottage cheese Nut butters: choose these instead of nuts Refried beans Cheese Liquid milk (cow's, rice, soy, etc) Silken tofu Fish (eg canned tuna, baked salmon) Well-cooked/tender meats and poultry Protein powder: add to smoothies and/or milkshakes Hot cereals Mashed avocados Frozen yogurt Pudding/custard Sherbet Ice cream Fruit smoothies Applesauce documented in this encounterThe [facility]08-28-2024 History of Present illness Narrative* Georgina Carrillo MD - 10/13/2023 1:00 PM EDT SMALL BOWEL DISEASES AND NUTRITION NEW ENCOUNTER Date of direct communication: 10/13/2023 Assessment IMPRESSION: Abbey Garcia is a 33 year old female with 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 Nutrition status has improved with TPN for the past 4 months and she has gained back weight a little over her goal weight. Other issues discussed include: hypoglycemia, central catheter. DIAGNOSTIC ISSUES AND PLAN: #) Feeding intolerance #) On TPN -Continue TPN --> we will help write prescription order for PCP -Trial Peptamen 1.5 with RY anatomy -Mechanically altered diet as tolerated -Goal is for weight stabilization/gradual weight loss to goal ~175 lbs. Can reduce kcal in TPN to facilitate this. -Physical activity encouraged #) Therapeutic drug (TPN) monitoring -Continue standard monitoring -Check micronutrient levels #) Hypoglycemia during TPN infusion -Starting tube feeds may help with this -Check blood cultures for completeness -Endocrine referral #) Attn to central catheter (PICC) -Current PICC functioning without problems -Order placed for tunneled central catheter for watermaster access. PICC to be removed once tunneled cathter in place. -She received nursing teaching today for central line care as part of HPN intake process #) Partial SBO #) Constipation #) Difficult defecation -Referrals placed to anorectal manometry and defecography -Continues on Linzess and colace bid -May benefit from [place] visceral massage FOLLOW-UP: 3 months or sooner if needed Georgina Carrillo MD 10/13/2023 Staff Ice Platform Supervisor [facility] [place] [facility] , REFERRING PROVIDER: Jaquan Morrow, SPEECH PATHOLOGY SUPERVISOR, OFFSHORE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 [address] [place] [address] REASON FOR REFERRAL: TPN HISTORY: -Multiple abdominal surgeries includin S/p lap denise 2020 S/p sleeve gastrectomy 2021 S/p conversion to RYGB 2022 S/p lap assisted ERCP with sphincterotomy S/p ex-lap with MALS release -Difficulties with feeding intolerance and chronic abdominal pain and ileus -Unable to maintain nutrition status on tube feeds --> stopped around 1 month ago. Was on Nutren1.5, Nutren 2.0 and had diarrhea and incontinence -Started on TPN early this year, tried to come off, but restarted again 03/2023 -PCP is currently signing off on her TPN prescription -Desired weight is 175 lbs -Constipation is an ongoing issue, on Linzess 290 and bolace bid -Chronic pain, nausea, vomiting ongoing -She has a notable history of PCOS, endometriosis, adhesions. After each surgery, she seems to do well for a short time and then the partial obstructive symptoms come back again. She has undergone hysterectomy and has 1 ovary left. -A lot of defecation problems. Uses a stool, difficult to evacuate stool. Also with sensation of incomplete evacuation -BS have gone down to 50's during TPN infusions. No problems with hypoglycemia after TPN taper off -Started on prednisone for ?hypoglycemia. Evaluated for urticaria, also has hx of possible adrenal insufficiency -Currently with PICC, working well. Some concerns about kids pulling out the PICC. -J tube is still in place. CURRENT NUTRITION SUPPORT: TPN: 2300 ml volume over 16 hours 7 days per week with 1 hour ramp up and 1 hour down 90 g amino acids 280 g dextrose ? g lipid 7 days per week Weight history: Last Wt 10/13/23 : 86.6 kg (191 lb) 10/12/23 : 87 kg (191 lb 12.8 oz) 10/07/23 : 82.2 kg (181 lb 3.5 oz) 10/06/23 : 82.2 kg (181 lb 3.5 oz) 09/18/23 : 79.4 kg (175 lb) 08/04/2023 79.8 kg (175 lb 14.8 oz) 06/18/2023 76.7 kg (169 lb) 06/06/2023 74.8 kg (165 lb) 04/28/2023 79.4 kg (175 lb) 11/17/2022 84.3 kg (185 lb 14.4 oz) 10/18/2022 81.6 kg (180 lb) 09/18/2022 83.5 kg (184 lb) 07/22/2022 79.8 kg (176 lb) 07/22/2022 79.9 kg (176 lb 3.2 oz) 06/20/2022 82.6 kg (182 lb) 06/12/2022 84.4 kg (186 lb) 03/05/2022 89.8 kg (198 lb) 02/03/2022 93.4 kg (206 lb) 02/19/2021 90.3 kg (199 lb) 12/31/2020 84.8 kg (187 lb) Current Outpatient Medications Medication Sig linaCLOtide (LINZESS) 290 mcg capsule Take 1 capsule by mouth daily at 6 am. ondansetron orally disintegrating (ZOFRAN ODT) 4 mg disintegrating tablet Dissolve 1 tablet on the tongue every 8 hours as needed for nausea or vomiting. predniSONE EC 5 mg Delayed Release Tab [...] weeks. Do not use calcium as a bin filler preparation. If insomnia or vivid dreams occur, then would take capsule at 9 am. (Patient not taking: Reported on 10/06/2023) hydrOXYzine HCl (ATARAX) 25 mg tablet TAKE [...] 8 hours. Please do not take this ifsystolic blood pressure greater than 110. Please discuss [...] Inhale 1 Puff as instructed every 12hours. topiramate (TOPAMAX) 100 mg tablet Take 100 mg by mouth two times a day. liothyronine (CYTOMEL) 5 mcg tablet Take 5 mcg by mouth once daily. No current facility-administered medications for this visit. ALLERGIES Allergen Reactions Adhesive Tape-Silic* Intolerance Sensitive to certain adhesive tapes. Redness and itchy. Codeine GI Upset Nsaids (Non-Steroid* Contraindication-Medical Surgical S/p RYGB PAST MEDICAL HISTORY No date: Anemia Comment: [...] Comment: Three C-sections No date: VAGINAL HYSTERECTOMY Social History Tobacco Use Smoking status: Never Smokeless tobacco: Never Vaping Use Vaping status: Never Used Substance Use Topics Alcohol use: Not Currently Drug use: Never Comment: denies tx for drug/alcohol abuse in the past. 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 INVESTIGATIONS: All available pertinent interval investigations were reviewed and were notable for: Latest Ref Rng 10/10/2023 10/12/2023 WBC 3.70 - 11.00 k/uL 3.70 RBC 3.90 - 5.20 m/uL 3.94 Hemoglobin 11.5 - 15.5 g/dL 10.7 (L) Hematocrit 36.0 - 46.0 % 33.8 (L) MCV 80.0 - 100.0 fL 85.8 MCH 26.0 - 34.0 pg 27.2 MCHC 30.5 - 36.0 g/dL 31.7 RDW-CV 11.5 - 15.0 % 15.1 (H) Platelet Count 150 - 400 k/uL 204 MPV 9.0 - 12.7 fL 10.6 Absolute nRBC <0.01 k/uL <0.01 Glucose 74 - 99 mg/dL 54 (L) BUN 7 - 21 mg/dL 7 Creatinine 0.58 - 0.96 mg/dL 0.68 Sodium 136 - 144 mmol/L 143 Potassium 3.7 - 5.1 mmol/L 3.7 Chloride 98 - 107 mmol/L 108 (H) CO2 22 - 30 mmol/L 24 Anion Gap 8 - 15 mmol/L 11 Calcium 8.5 - 10.2 mg/dL 8.4 (L) eGFR >=60 mL/min/1.73m 117 Triglyceride <150 mg/dL 103 Fasting Time hrs 0 Lipase 16 - 61 U/L 24 TSH 0.270 - 4.200 mIU/L 0.942 Magnesium 1.7 - 2.3 mg/dL 2.0 Phosphorus 2.7 - 4.8 mg/dL 4.3 Glucose, Point of Care 74 - 99 mg/dL 187 ! Albumin 3.9 - 4.9 g/dL 3.7 (L) Legend: (L) Low (H) High ! Abnormal AXR 10-11-2023: RESULT: Enteric tube in region of stomach. Moderate gaseous distention of small and large intestinal loops with small bowel measuring up to 3.8 cm. Slight fold thickening noted. No renal stones are seen. Cholecystectomy clips. No free air is identified. IMPRESSION: Ileus or distal small bowel obstruction CTAP 10-10-2023: IMPRESSION: Moderate bladder distention. Enteric findings suggestive of small bowel ileus RESULT: Liver: Stable multifocal cyst. Biliary: Mild biliary ductal dilatation likely the basis of prior cholecystectomy ectasia. Spleen: No mass. Mild splenomegaly Pancreas: No mass or duct dilation. Adrenals: No mass. Kidneys: No mass, calculus or hydronephrosis. GI tract: Stable postsurgical changes of stomach likely reflecting Tan-en-Y bypass procedure. Stable jejunostomy catheter. Mildly dilated multifocal loops of small bowel and large bowel. Distal small bowel fecal sign is present. Lymph nodes: No abdominal or pelvic lymphadenopathy. Mesentery/Peritoneum: No ascites or mass. Retroperitoneum: No mass. Vasculature: Unremarkable Pelvis: Moderate bladder distention. Bones/Soft Tissues: No significant finding. Lower thorax: Unremarkable. Localizer images: Unremarkable. CXR 10-07-2023: IMPRESSION: PICC tip terminates in the lower SVC. PHYSICAL EXAM: BP 125/69 Pulse 81 Ht 167.6 cm (5' 6 ) Wt 86.6 kg (191 lb) LMP 08/19/2020 SpO2 100% BMI30.83 kg/m Body mass index is 30.83 kg/m . Constitutional: Healthy and well developed HEENT: No icterus. Mild acne. Neck: No lymphadenopathy. Resp: Normal resp effort. CVS: PPP bilat. Abdo: Non-distended. COURTNEY: Not done. Extr: Intact muscle bulk and subQ fat reserves. No edema. Skin: Warm and dry. No rash. Neuro: A&O, normal gait. Psych: Normal affect and memory. Total time of this patient encounter today was >60 mins, including: preparation for visit, direct time with the patient, examination, orders, review of records, and documentation. * Jinny Neely, RD - 10/13/2023 12:06 PM EDT [facility] NAME: Abbey Garcia AGE: [age] year old : PHONE: [phone] (home) [phone] (work) [phone] (cell) Referring MD: Dr. Kat PCP: Thomas Calix MD Initial Visit This is a 33 year old female with an underlying diagnosis of obesity s/p sleeve gastrectomy in 2020, which was later converted to gastric bypass in 2021 due to GERD c/b po intolerance, N/V and recurrent obstructive like symptoms. Patient with current physiology of alternating diarrhea/constipation and recurrent SBO. She has been [facility] from General Surgery Dr. Kat for nutrtitionmanagement. Today patient reports inability to tolerate po intake due to abdominal pain, nausea, vomiting, dry heaving. She previously was on TF and stopped 1 month ago d/t worsening diarrhea and incontinence. She states she has had 4-5 hospital admissions in the past year for SBO and 2 admissions for ileus. Pt was encouraged to follow a mechanically altered/blenderzied diet for better tolerance. Plan to take over PN mgmt following visit today. We will re-try TF using a semi-elemental product. Last Intestinal Surgery: 11/11/22: laparoscopic gastric exploration (to facilitate ERCP with sphincterotomy) 01/29/2022: conversion to gastric bypass 09/03/2020: gastric sleeve 2014: cholecystectomy Anatomy: Per Surgical history, she has gastric pouch, entire small bowel in RNY configuration (50 cm BP limb, 110 cm Tan limb) to entire colon. + ICV, + R/A. Co-morbidities: HEN 05/2023 - 08/2023 HPN 11/2022-02/2023, 05/2023- present Anxiety/depression Hypothyroidism Hx of gestational diabetes (in all 3 pregnancies) Endometriosis requiring NAFISA PCOS Intake: Appetite is poor. Patient reports on a good day she can eat small amounts of food (cottage cheese, chicken salad) and on bad days she will only take Boost or Premier Protein nutrition supplements. She reports she will sip on these throughout the day, but can only drink 1 per day. Some days she will not eat at all due to inability to tolerate po. She has chronic abdominal pain (usually 5/10) which is worse with po intake. She frequently will have nausea and vomiting after eating, and if not having vomiting then she will have dry heaving. This is not nutritionally adequate as patient relies on PN to meet needs. Patient drinks ~1.7 liters of fluid daily on a good day, but some days sheis unable to keep fluids down. Diet recall: Bites of a couple foods (cottage cheese, chicken salad). Will take Boost or Premier Protein when unable to eat any food. Beverages: water (48 oz), on occasion 8 oz coffee, 8 oz ONS Patient has been on home PN since 05/2023 for a condition of inability to tolerate po intake (N/V, abdominal pain) and increased diarrhea & nausea with EN. Plans are to continue with PN until patient transitions to adequate oral/ enteral nutrition. Patient reports no problems with TPN infusionsat this time. Patient reports no fevers at home. Patient reports blood sugars dropping into 30-50's. Will have confusion, shakiness. Low blood sugarlevels occur during PN infusions and off of PN infusions. Hypoglycemia started in 08/2023 and was started on prednisone 15 mg daily, however still experiencing lows. PN: Patient takes 2.3 liters of PN over 16 hr (1 hr up/ 2 hr down) 7 days per week. PN provides 90 g AA, 952 kcals dextrose, Intralipid 250 ml 4x per week. Patient receives a total of 1597 average daily calories ( 18.4 kcal/kg) PN Order: AA 90 g Dextrose 952 kcals Ca 10 mEq Mg 14 mEq KAce 70 mEq NaPO4 30 mmol Na Ivan 55 mEq MVI 10 ml Tralement 1 ml IVF: Patient is using 2 additional IVF bags per week. Patient reports using on days she cannot drink as much orally (will feel like she is dehydrated on these days). This is managed by Dr. Thomas Calix Home Care: [facility] and IV Pharmacy: [facility] [phone] Output: patient reports she had a catheter in the hospital due to retaining urine, but now urinating well currently. Color is clear to pale yellow. On a good day will have 3-4 BM's per day and on badday will have 12-13 BM's. Patient reports she will have constipation intermittently and not go at all. Currently taking Linzess daily. She reports if she did not take Linzess or colace then she wouldnot have a BM for 1 week. Pt reports constipation worsened in 2019 during 3rd . The outputis usually soft, but will be watery on bad days (when having 12-13 BM's). Question if this is overflow diarrhea given hx of SBO. Relation to food/ fluid not related. + bloating, abdominal distention. Laboratory: Latest Ref Rng 10/12/2023 WBC 3.70 - 11.00 k/uL 3.70 RBC 3.90 - 5.20 m/uL 3.94 Hemoglobin 11.5 - 15.5 g/dL 10.7 (L) Hematocrit 36.0 - 46.0 % 33.8 (L) MCV 80.0 - 100.0 fL 85.8 MCH 26.0 - 34.0 pg 27.2 MCHC 30.5 - 36.0 g/dL 31.7 RDW-CV 11.5 - 15.0 % 15.1 (H) Platelet Count 150 - 400 k/uL 204 MPV 9.0 - 12.7 fL 10.6 Absolute nRBC <0.01 k/uL <0.01 Glucose 74 - 99 mg/dL 54 (L) BUN 7 - 21 mg/dL 7 Creatinine 0.58 - 0.96 mg/dL 0.68 Sodium 136 - 144 mmol/L 143 Potassium 3.7 - 5.1 mmol/L 3.7 Chloride 98 - 107 mmol/L 108 (H) CO2 22 - 30 mmol/L 24 Anion Gap 8 - 15 mmol/L 11 Calcium 8.5 - 10.2 mg/dL 8.4 (L) eGFR >=60 mL/min/1.73m 117 Magnesium 1.7 - 2.3 mg/dL 2.0 Phosphorus 2.7 - 4.8 mg/dL 4.3 Latest Ref Rng 11/04/2022 05/18/2023 Vitamin B12 232 - 1,245 pg/mL 1,018 1,155 Vitamin D 25 Hydroxy 31.0 - 80.0 ng/mL 29.0 (L) 36.1 Vitamin A 0.30 - 1.20 mg/L 0.44 0.17 (L) Zinc 60 - 120 ug/dL 51 (L) Vitamin B6, Plasma 20.0 - 125.0 nmol/L 39.1 Copper 80 - 155 ug/dL 91 Folate >4.7 ng/mL 10.3 Latest Ref Rng 05/18/2023 Iron 41 - 186 ug/dL 81 TIBC 232 - 386 ug/dL 292 Transferrin Saturation 15.0 - 57.0 % 27.7 Prior response to CGRT therapy: ORS: has tried Liquid IV in past, but disliked. Benefiber: Has tried metamucil once daily in past, but did not feel it helped with constipation. Imodium: n/a Lomotil: n/a Codeine: n/a and allergy to medication Tincture of Opium: n/a Pancreatic Enzymes: never tried Probiotics: takes OTC Alla Page's Liquid probiotic drops and feels it has helped some with gas/bloating Antimicrobials: never for SIBO Antisecretory: n/a Bile acid binding resin: n/a Growth Hormone: n/a GLP2: n/a Other: taking Linzess daily EN: hx of Nutren 1.5 & 2.0 at 45 ml/hr, felt this caused worsening diarrhea and incontinence. Plan to trial semi-elemental formula (Peptamen 1.5). EN Access: J tube IV access device: Right 2 lumen PICC placed 05/2023. Tip in lower SVC per CXR 10/07/23 Patient is not a candidate for ethanol lock with current line. Anthropometrics: Height: 5'6 (167.6 cm) Weight: 181 lb (10/06/23); 175 lb (09/18/23); 175 lb (08/26/23); 181 lb (07/16/23); 170 lb (06/18/23); 165lb (06/06/23); 175 lb (04/28/23); 184 lb (12/04/22) Usual weight: 175-180 lb Highest weight: 275 lb - pre-gastric sleeve Lowest weight: 165 lb Goal weight: maintain CBW BMI: 29.16- overweight Weight has increased by 16 lb over 4 months representing 9.7 % weight change. Wt has increased backto UBW since restarting TPN. Estimated Daily Nutritional Needs: 1650 - 2060 kcals/day = 20 - 25 kcals/kg dosing weight 98 - 123 g protein/day = 1.2-1.5 g/kg dosing weight Nutrition Focused Physical Exam: Subcutaneous Fat Loss: Orbital: None Triceps: None Mid-axillary at the iliac crest: None Muscle Loss Locations: Temporalis: None Pectoralis: None Deltoids: None Interosseous: None Latissimus dorsi, trapezius: None Quadriceps: None Gastrocnemius: None Ascites: No Edema: No Functional status: No functional impairment, normal with no limitations Potential Signs of Inflammation: chronic condition Potential micronutrient deficiency revealed in No deficiency identified ASSESSMENT OF MALNUTRITION: NO MALNUTRITION IDENTIFIED Overall Assessment: Grade B esophagitis (EGD 08/2023) S/p gastric bypass PN dependent At risk for vitamin and trace element deficiency Hx vitamin A and D deficiency At risk for SIBO CGRT Recommendations: Diet: Recommend mechanically altered diet. Suggested patient blenderize & puree foods to a consistency she can drink through a straw for better tolerance given recurrent SBO EN: indicated for po intolerance, altered GI anatomy. Semi-elemental formula indicated for intolerance to standard formula. - Peptamen 1.5, start at 10 ml/hr and adv as tolerated. Will ask NST RN to send script to [facility] - Eventual goal 50 ml/hr x 22 hrs (hold 1 hr before and after giving synthroid). Provides 1100 ml product, 1650 kcals, 75 g protein, 849 ml free water. - Flush 30 ml q 4 hrs for tube patency for now PN: - No changes to PN volume or macro nutrients at this time - Keep PN over 16 hrs d/t hypoglycemia currently - If doing well on EN, then could start weaning PN. Patient to contact office to let us know if EN is going well. - Patient received line lessons by NST RN 10/12 and [address] pt agreement[address] Dr. Carrillo/ [facility] to take over PN mgmt. - Orders placed for hodges placement and for PICC removal Vitamin & Mineral Supplements: - MVI and tralement in PN - If patient is iron deficient, will need IV iron as does not tolerate oral iron well (increases constipation/nausea) Probiotics: Taking Alla Page's Probiotic Liquid OTC Proton Pump Inhibitors: Prilosec 40 mg BID Others: Taking Zofran & Compazine Other: Linzess 290 mcg daily, colace 100 mg BID This patient does need to be evaluated for iron deficiency anemia. Labs: per HNS; on next set of labs draw Vit A, E, D, B6, B12, MMA, copper, zinc, selenium, manganese, chromium, EFA profile, blood cultures, hgb A1C. Determine lab frequency following lab results, anticipated lab draw on 10/[address] Carrillo and orders written. Referrals: Endocrinology Procedures/tests: XR defecography, anorectal manometry Patient Group: CGRT + HPN Follow Up: Return to clinic in 2-[address] Carrillo and CGRT. If no s/s malabsorption at next visit, CGRT to sign off and HPN to follow. Signed by: Jinny Neely RD 10/13/2023 documented in this encounterThe [facility] Hospital08-28-2024 [facility]Ohio[facility]08-28-2024 [facility]08-27-2024 NoteHNO ID: [id number] Author: JINNY NEELY RD Service: ? Author Type: Registered Dietitian Type: Progress Notes Filed: 10/13/2023 15:31 Note Text: Abstract moved to clinic visit on 10/13/[address] Carrillo and CGRT Jinny Neely RDOhiohealth Marion General Hospital08-27-2024 History of Present illness Narrative* Jinny Neely RD - 10/12/2023 10:41 AM EDT Abstract moved to clinic visit on 10/13/[address] Carrillo and CGRT Jinny Neely RD documented in this encounterThe [facility] Hospital08-26-2024 [facility] 10-11-2023 [facility] [id number] Telephone encounter Note* Telephone Encounter - Louise Blankenship - 10/11/2023 9:52 AM EDT Page sent to our surgeon and hospital PA. For future, HUCs should call [phone] and press option 1. [facility] Work Phone: 1(416) 599-510008-26-2024 Miscellaneous Notes* Telephone Encounter - Louise Blankenship - 10/11/2023 9:52 AM EDT Page sent to our surgeon and hospital PA. For future, HUCs should call [phone] and press option 1. * Telephone Encounter - Sangeeta Bills RN - 10/11/2023 9:27 AM EDT [facility] calling regarding GENERAL SURGERY consult placed for this patient in Room 407. Nurses station [phone]. Advised this should be paged, nurse states she has order to call . documented in this encounterThe Jewish Hospital08-26-2024 Telephone encounter Note * Telephone Encounter - Sangeeta Bills RN - 10/11/2023 9:27 AM EDT [facility] calling regarding GENERAL SURGERY consult placed for this patient in Room 407. Nurses station [phone]. Advised this should be paged, nurse states she has order to call . [facility] Work Phone: [phone]) 256-621808-25-2024 [id number] Telephone encounter Note* Telephone Encounter - Serena Neff - 10/08/2023 4:07 PM EDT Patient returned phone call. Pain: Location: Abdomen [...] legs - BEST TO ALWAYS present to [facility] hospital where you had your surgery No further questions from the patient at this time. Ad[facility] or questions [facility]. Serena Neff STAFF DEVELOPMENT COORDINATOR RN Senior Technical Editor for Dr. Kat [facility]08-23-2024 Miscellaneous Notes* Telephone Encounter - Serena Neff - 10/08/2023 4:07 PM EDT Patient returned phone call. Pain: Location: Abdomen [...] legs - BEST TO ALWAYS present to [facility] where you had your surgery No further questions from the patient at this time. Advised [facility] or questions arise. Serena Neff RN BSN Senior Technical Editor for Dr. Kat * Telephone Encounter - Serena Neff - 10/08/2023 3:47 PM EDT Phoned patient to see how she was doing after surgery. S/p: Diagnostic Laparoscopy, Enteropexy Around J-Tube. 10/07/2023 No answer. Left VM. Serena Neff RN BSN Senior Technical Editor for Dr. Kat documented in this encounterThe Jewish Hospital08-23-2024 Telephone encounter Note * Telephone Encounter - Serena Neff - 10/08/2023 3:47 PM EDT Phoned patient to see how she was doing after surgery. S/p: Diagnostic Laparoscopy, Enteropexy Around J-Tube. 10/07/2023 No answer. Left VM. Serena Neff RN BSN Senior Technical Editor for Dr. Kat [facility]08-22-2024 NoteB[facility] Deaconess [id number] NoteB[facility] 10-06-2023 Instructions* Patient Instructions* Chantal Brown APRN.OFFSHORE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 - 10/06/2023 4:14 PM EDT PATIENT PREOPERATIVE INSTRUCTIONS Deacon Kat MD has scheduled you for your procedure at this surgery center: [facility]: [phone] --[address] [address]. Please check in on the1st floor at registration desk 6. Please read [...] - YOU MUST HAVE A RESPONSIBLE MANAGER TECHNICAL SALES TAKE YOU HOME. A HYDRAULICS TEACHER OR SALES FLOOR TEAM LEADER CANNOT BE MADE A RESPONSIBLE MANAGER TECHNICAL SALES. - We recommend that a responsible person [...] Advance Directive, please fax a copy to [phone] or email to for it to be [...] your chart that day. documented in this encounterThe Jewish Hospital08-21-2024 History and physical note * Chantal Brown APRN.BETH - 10/06/2023 3:40 PM EDT SERVICE DATE: 10/06/2023 SERVICE TIME: 4:30 PM Surgeon: Deacon Kat MD Type of surgery: LAPAROSCOPY DIAGNOSTIC Patient scheduled for surgery on 10/07/2023 Surgery Location: [place] BP 125/84 Pulse 77 Temp 96.7 Resp 17 Ht 5' 5.6 (1.67m) Wt 181 lb 3.5 oz (82.2kg) SpO2 99% LMP 08/19/2020 BMI 29.62 kg/(m^2). CC: Patient presents with: Pre-Op Visit HPI: Abbey Garcia is a 33 year old year old FEMALE with recent [facility] . Encounter reviewed [...] Comment: arthroscopic knee surgery- was catcher in [facility] 08/2020: PAST SURGICAL HISTORY OF Comment: gastric [...] Inhale 1 Puff as instructed every 12hours. topiramate (TOPAMAX) 100 mg tablet Take 100 mg by mouth two times a day. liothyronine (CYTOMEL) 5 mcg tablet Take 5 mcg by mouth once daily. naltrexone 1.5 mg capsule (CPD) Take 1 capsule daily at 9 pm. May increase to 2 capsules if no relief after 2 weeks. Do not use calcium as a bin filler preparation. If insomnia or vivid dreams occur, then would take capsule at 9 am. (Patient not taking: Reported on 10/06/2023) midodrine (PROAMITINE) 5 mg tablet Take 1 tablet by mouth every 8 hours. Please do not take this ifsystolic blood pressure greater than 110. Please discuss [...] 462 QTC Calculation (Bazett) 445 Calculated P Novi 74 Calculated R Novi 74 Calculated T Novi 51 Impression SINUS BRADYCARDIA OTHERWISE NORMAL ECG [...] October 06, 2023 TIME: 3:45 PM [facility]08-21-2024 History and physical note* Chantal Brown APRN.CNP - 10/06/2023 3:40 PM EDT SERVICE DATE: 10/06/2023 SERVICE TIME: 4:30 PM Surgeon: Deacon Kat MD Type of surgery: LAPAROSCOPY DIAGNOSTIC Patient scheduled for surgery on 10/07/2023 Surgery Location: [place] BP 125/84 Pulse 77 Temp 96.7 Resp 17 Ht 5' 5.6 (1.67m) Wt 181 lb 3.5 oz (82.2kg) SpO2 99% LMP 08/19/2020 BMI 29.62 kg/(m^2). CC: Patient presents with: Pre-Op Visit HPI: Abbey Garcia is a 33 year old year old FEMALE with recent H&P [facility] . Encounter reviewed [...] Inhale 1 Puff as instructed every 12hours. topiramate (TOPAMAX) 100 mg tablet Take 100 mg by mouth two times a day. liothyronine (CYTOMEL) 5 mcg tablet Take 5 mcg by mouth once daily. naltrexone 1.5 mg capsule (CPD) Take 1 capsule daily at 9 pm. May increase to 2 capsules if no relief after 2 weeks. Do not use calcium as a bin filler preparation. If insomnia or vivid dreams occur, then would take capsule at 9 am. (Patient not taking: Reported on 10/06/2023) midodrine (PROAMITINE) 5 mg tablet Take 1 tablet by mouth every 8 hours. Please do not take this ifsystolic blood pressure greater than 110. Please discuss [...] 462 QTC Calculation (Bazett) 445 Calculated P Novi 74 Calculated R Novi 74 Calculated T Novi 51 Impression SINUS BRADYCARDIA OTHERWISE NORMAL ECG [...] 2023 TIME: 3:45 PM documented in this encounterThe Jewish Hospital08-13-2024 NoteHNO ID: [id number] Author: PABLO LEBRON PSYD Service: ? Author Type: Psychologist Type: Progress Notes Filed: 09/28/2023 09:27 Note Text: Assessment was conducted virtually. Patient is a resident of [place], and completed the assessment virtually in [place]. Psychologist is licensed and stationed in [place]. Informed consent was discussed and verbal assent [...] Focused Psychotherapy, Supportive Therapy PROGRESS TO DATE: Stem Mounter Progress: Stable Short Term Condition: Stable GOALS/OBJECTIVES/INTERVENTIONS: To identify and implement tools for effectively managing symptoms of anxiety, stress, and low mood. Approximately 20 minutes were spent with the patient doing therapy. Pablo LebronPenikese Island [facility]08-13-2024 History of Present illness Narrative* Pablo Lebron, [facility] - 09/28/2023 8:58 AM EDT Assessment was conducted virtually. Patient is a resident of [place], and completed the assessment virtually in [place]. Psychologist is licensed and stationed in [place]. Informed consent was discussed and verbal assent was granted by the patient. GENERAL PSYCHOLOGY Session #: 6 (session count starts after [facility] visit) SUBJECTIVE: Anxiety regarding surgery for [...] Focused Psychotherapy, Supportive Therapy PROGRESS TO DATE: Stem Mounter Progress: Stable Short Term Condition: Stable GOALS/OBJECTIVES/INTERVENTIONS: To identify and implement tools for effectively managing symptoms of anxiety, stress, and low mood. Approximately 20 minutes were spent with the patient doing therapy. Pablo Lebron PsyD documented in this encounterThe Jewish Hospital08-05-2024 History of Present illness Narrative* Deacon Kat MD - 09/20/2023 3:20 PM EDT VIRTUAL VISIT PROGRESS NOTE This is a virtual visit using [employer] Video Visit. It required patient- provider interaction for the medical decision making as documented below. I have communicated my name and active licensure. The patient's identity and physical location wereverified at the time of this visit. Either the patient or their legal procurement representative has been informed of the risks [...] but did show a small bowel intusseption (likelytransient) HISTORY REVIEWED (electronic chart updated): PAST MEDICAL [...] 6 hours as needed for up to 7days. ondansetron orally disintegrating (ZOFRAN ODT) 8 mg [...] weeks. Do not use calcium as a bin filler preparation. If insomnia or vivid dreams [...] 8 hours. Please do not take this ifsystolic blood pressure greater than 110. Please discuss [...] Inhale 1 Puff as instructed every 12hours. topiramate (TOPAMAX) 100 mg tablet Take 100 [...] additional findings. CT ABD/PEL W IVCON (Order #[id number]) on 09/18/2023 - Order Result History Report [...] was characterized by healthy appearing mucosa. The slydqzgd-ro-anizsox limb was examined. The examined jejunum was [...] symptom association observed. PH HUERTA INSERT ON IQuum (Order #[id number]) on 08/31/2023 - Order Result History Report - Result Edited EGD - THERAPEUTIC, EUS, OR TUBE INTERVENTIONS (Order #[id number]) on 08/26/2023 - Order Result History Report [...] laparoscopy just to check. This should at leastmake us feel more comfortable about proceeding with [...] Deacon Kat MD documented in this encounterThe Jewish Hospital08-05-2024 NoteOhio[facility]08-03-2024 NoteSpanish Fork [id number] [facility] [id number] Note [facility] [id number] History of Present illness Narrative* Veronika Han MD - 09/08/2023 10:40 AM EDT DEPARTMENT OF GASTROENTEROLOGY - FOLLOW [...] weeks. Do not use calcium as a bin filler preparation. If insomnia or vivid dreams [...] 8 hours. Please do not take this ifsystolic blood pressure greater than 110. Please discuss [...] Inhale 1 Puff as instructed every 12hours. metoclopramide HCl (REGLAN) 5 mg tablet Take [...] with left upper quadrant abdomina pain. Carnett signis positive. There area of pain does correlate with the mesenteric swirl seen on CT imaging (07/2023). Ddx of pain includes myofascial pain vs. Internal hernia vs. Peptic ulcer disease (as some ulcerswere noted on EGD). PLAN --reduce linzess to [...] stopping the Colace which she has been alsotaking as a first step I spent a total of 30 minutes on the date of the service which included preparing to see the patient, xvhu-qz-[id number] patient care, completing clinical documentation, obtaining and/or reviewing separately obtained history, performing a medically appropriate examination, counseling and educating the pat ient/family/caregiver, ordering medications, tests, or procedures, and communicating with other HCPs (not separately reported). Signature: Kasie Avalos MD Date: 09/08/23 Time: 12:10 PM documented in this encounterThe Jewish Hospital07-24-2024 NoteOhio[facility] Marion [facility] Hospital07-16-2024 NoteOhio[facility] Marion [facility] Hospital07-16-2024 History of Present illness Narrative* Marisabel Lynn LPN - 08/31/2023 3:13 PM EDT Name: Abbey Garcia [facility]#: [id number] Date: 08/31/2023 HUERTA 48 HR PH FOLLOW-UP The HUERTA monitor was returned today.. Test data from the biomass plant technician was downloaded. Events from the patient diary were inserted into the study for physician review. .Marisabel Lynn LPN documented in this encounterThe Jewish Hospital07-11-2024 Nurse Note* Carlee Fuller LPN - 08/26/2023 4:24 PM EDT AMBULATORY PATIENT EDUCATION NOTE TOPIC: GI PROCEDURES: [...] Procedure Discharge Instructions REFERRAL (RECOMMENDATION): None [facility]07-11-2024 Nurse Note* Carlee Fuller LPN - 08/26/2023 4:24 PM EDT AMBULATORY PATIENT EDUCATION NOTE TOPIC: GI PROCEDURES: [...] Procedure Discharge Instructions REFERRAL (RECOMMENDATION): None * Erica Freeman RN - 08/26/2023 4:12 PM EDT AMBULATORY PATIENT EDUCATION NOTE TOPIC: GI PROCEDURES: Esophagogastroduodenoscopy(EGD) with or without biopies based on clinical findings, removal of polyps or lesions READINESS TO LEARN INSTRUCTION PROVIDED TO: Patient, readness to learn accessed prior to procedure, Family member, andPatient and family member COGNITIVE ABILITY: Alert and [...] Procedure Discharge Instructions REFERRAL (RECOMMENDATION): None * Lisette Newell RN - 08/26/2023 3:26 PM EDT Patient had a PICC line present on admission to [facility]. PICC line had a brisk blood return and flushedper [facility] policy. Patient tolerated well. * Lisette Newell RN - 08/26/2023 3:20 PM EDT PRE OP LEARNING ASSESSMENT PROCEDURE/SURGERY: GI PROCEDURES: EGD READINESS TO LEARN COGNITIVE ABILITY: Alert and oriented MOTIVATION TO LEARN: Interested FAMILY SUPPORT: Unable to assess - Family not present PATIENT LEARNS BEST BY: Individual Instruction FACTORS AFFECTING LEARNING: None PHYSICAL LIMITATIONS AFFECTING LEARNING: None Electronically Signed By: Lisette Newell RN In Department: GASTROENTEROLOGY documented in this encounterThe Jewish Hospital07-11-2024 Nurse Note* Erica Freeman RN - 08/26/2023 4:12 PM EDT AMBULATORY PATIENT EDUCATION NOTE TOPIC: GI PROCEDURES: Esophagogastroduodenoscopy(EGD) with or without biopies based on clinical findings, removal of polyps or lesions READINESS TO LEARN INSTRUCTION PROVIDED TO: Patient, readness to learn accessed prior to procedure, Family member, andPatient and family member COGNITIVE ABILITY: Alert and [...] Procedure Discharge Instructions REFERRAL (RECOMMENDATION): None [facility]07-11-2024 NoteOhio[facility]07-11-2024 History of Present illness Narrative* Marisabel Lynn LPN - 08/26/2023 4:10 PM EDT Name: Abbey Garcia [facility]#: [id number] Date: 08/26/2023 48hr HUERTA PH CAPSULE PLACEMENT [...] .Marisabel Lynn LPN documented in this encounterThe Jewish Hospital07-11-2024 Nurse Note* Lisette Newell RN - 08/26/2023 3:26 PM EDT Patient had a PICC line present on admission to [facility]. PICC line had a brisk blood return and flushedper [facility] policy. Patient tolerated well. [facility]07-11-2024 Nurse Note* Lisette Newell RN - 08/26/2023 3:20 PM EDT PRE OP LEARNING ASSESSMENT PROCEDURE/SURGERY: GI PROCEDURES: EGD READINESS TO LEARN COGNITIVE ABILITY: Alert and oriented MOTIVATION TO LEARN: Interested FAMILY SUPPORT: Unable to assess - Family not present PATIENT LEARNS BEST BY: Individual Instruction FACTORS AFFECTING LEARNING: None PHYSICAL LIMITATIONS AFFECTING LEARNING: None Electronically Signed By: Lisette Newell RN In Department: GASTROENTEROLOGY [facility]07-10-2024 Telephone encounter Note* Telephone Encounter - Sabina Ibrahim MA - 08/25/2023 9:14 AM EDT Called patient; [facility] in [place] has been removed from Pharmacy list. Patient requests [facility]. Patient's request for medication is as follows: [...] weeks. Do not use calcium as a bin filler preparation. If insomnia or vivid dreams occur, then would take capsule at 9 am. Prescription(s) as above. Please process accordingly. Sabina Ibrahim MA [facility]07-10-2024 Miscellaneous Notes* Telephone Encounter - Sabina Ibrahim MA - 08/25/2023 9:14 AM EDT Called patient; [facility] in [place] has been removed from Pharmacy list. Patient requests [facility]. Patient's request for medication is as follows: [...] weeks. Do not use calcium as a bin filler preparation. If insomnia or vivid dreams occur, then would take capsule at 9 am. Prescription(s) as above. Please process accordingly. Sabina Ibrahim MA documented in this encounterThe Jewish Hospital07-08-2024 Telephone encounter Note * Telephone Encounter - Deacon Kat MD - 08/23/2023 8:52 AM EDT Doxycycline ordered. Make sure bumper is not tight to skin, there should be 1 cm (1/3 inch) of play. [facility]07-08-2024 Miscellaneous Notes* Telephone Encounter - Deacon Kat MD - 08/23/2023 8:52 AM EDT Doxycycline ordered. Make sure bumper is not tight to skin, there should be 1 cm (1/3 inch) of play. documented in this encounterThe Jewish Hospital07-05-2024 Telephone encounter Note * Telephone Encounter - Serena Neff - 08/20/2023 2:50 PM EDT Patient's called x [address] [...] plan and appreciative of call. Serena Neff STAFF DEVELOPMENT COORDINATOR RN Senior Technical Editor for Dr. Kat [facility]07-05-2024 Miscellaneous Notes* Telephone Encounter - Serena Neff - 08/20/2023 2:50 PM EDT Patient's called x [address] [...] plan and appreciative of call. Serena Neff STAFF DEVELOPMENT COORDINATOR RN Senior Technical Editor for Dr. Kat * Telephone Encounter - Serena Neff - 08/18/2023 12:30 PM EDT Staff message sent to Dr. Kat. * Telephone Encounter - Serena Neff - 08/18/2023 12:16 PM EDT Patient's phoned me to discuss Abbey. States Abbey is having severe, debilitating abdominal pain. States it feels like a knife is turning in her abdomen and she is unable to do anything until the pain subsides. Pt often dry heaves as well, which increases her pain significantly. Patient is currently scheduled to be evaluated by intestinal rehab team on 10/12, but statesthis is too far out, as he is taking Abbey to the hospital 1-2 times per week for fear of obstruction and management of her severe abdominal pain. Asked if pt was on waiting list and if they had thenumber to reach the intestinal rehab schedulers. confirms they are on waiting list and theyhave the number. Understands it is a busy service, but struggling with waiting 2 more months while [place] is in pain. requesting to speak with Dr. Kat about potentially repairing hernia and taking down adhesions in an attempt to solve her pain issues. Advised that I would forward his requests andconcerns to Dr. Kat. Serena Neff STAFF DEVELOPMENT COORDINATOR RN Senior Technical Editor for Dr. Kat documented in this encounterThe Jewish Hospital07-03-2024 Telephone encounter Note * Telephone Encounter - Serena Neff - 08/18/2023 12:30 PM EDT Staff message sent to Dr. Kat. [facility]07-03-2024 Telephone encounter Note* Telephone Encounter - Serena Neff - 08/18/2023 12:16 PM EDT Patient's phoned me to discuss Abbey. States Abbey is having severe, debilitating abdominal pain. States it feels like a knife is turning in her abdomen and she is unable to do anything until the pain subsides. Pt often dry heaves as well, which increases her pain significantly. Patient is currently scheduled to be evaluated by intestinal rehab team on 10/12, but statesthis is too far out, as he is taking [place] to the hospital 1-2 times per week for fear of obstruction and management of her severe abdominal pain. Asked if pt was on waiting list and if they had thenumber to reach the intestinal rehab schedulers. confirms they are on waiting list and theyhave the number. Understands it is a busy service, but struggling with waiting 2 more months while Abbey is in pain. requesting to speak with Dr. Kat about potentially repairing hernia and taking down adhesions in an attempt to solve her pain issues. Advised that I would forward his requests andconcerns to Dr. Kat. Serena Neff RN BSN Senior Technical Editor for Dr. Kat [facility]06-27-2024 Telephone encounter Note* Telephone Encounter - Radha Osman MA - 08/12/2023 10:54 AM EDT GI Pre-Procedure Spoke with patient: Yes Confirmed date scheduled and patient report time: Yes Procedure Planned:Huerta insert Esophagogastroduodenoscopy(EGD) for control of bleeding,dilation(any means),imaging,tube placement Is the patient on blood thinners?no Procedure Instructions given to patient: Yes, and they verbalized their understanding of instructions given Patient instructed to have family/friend present for procedure transport home:Patient/patient procurement representative was told that if they do [...] area. 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 Type of instruction given: Verbal by telephone contact. Radha Osman MA [facility]06-27-2024 Miscellaneous Notes* Telephone Encounter - Radha Osman MA - 08/12/2023 10:54 AM EDT GI Pre-Procedure Spoke with patient: Yes Confirmed date scheduled and patient report time: Yes Procedure Planned:Huerta insert Esophagogastroduodenoscopy(EGD) for control of bleeding,dilation(any means),imaging,tube placement Is the patient on blood thinners?no Procedure Instructions given to patient: Yes, and they verbalized their understanding of instructions given Patient instructed to have family/friend present for procedure transport home:Patient/patient procurement representative was told that if they do [...] area. 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 Type of instruction given: Verbal by telephone contact. Radha Osman MA documented in this encounterThe [facility] History of Present illness Narrative* Vic Ramos MD - 08/09/2023 2:00 PM EDT Images from the original note were not included. SUBJECTIVE: The patient presents to [facility] Department for a follow-up appointmentfor pain in the abdomen (naval and comes [...] walking or standing? (YES or NO) patient hasbeen out of medications for 1 day Have [...] re: [place] vs. different [place] location vs. [email or web address] online to try She previously tried gabapentin, elavil in the past (some small benefit) but had elevated QT She is patient of Dr. Magaña s/p LEXI alcantar with some benefit. She is mostly interested in a workaround for this Rx supply chain issue at the pharmacy rather thanany invasive treatment or block at this time, so she will phone us with the decision as to where toresend the ketamine Rx. Dr. Murguia suggested low dose naltrexone 1.5mg trial but they are also out of this stock too. Dx: Neuralgia and neuritis (primary encounter diagnosis) Median arcuate ligament syndrome (hcc) PLAN: ketamine nasal spray continued (problem with [facility] stock [facility]) Return to clinic (in-person office visit or virtual visit/telemedicine) after all above completed fully. I spent a total of 25 minutes on the date of the service which included: *preparing to see the patient *fgey-kk-lwot patient care *completing clinical documentation *obtaining and/or [...] MD August 05, 2023 documented in this encounterThe [facility]06-[facility]24 [facility]-2024 [id number] NoteHNO ID: [id number] Author: MARIA TERESA MURILLO MD Service: Hospital Medicine Author Type: Physician Type: Plan of Care Filed: 08/06/2023 11:50 Note Text: To review with pulmonologySpanish Fork [id number] [facility] [id number] Telephone encounter Note* Telephone Encounter - Nathalie Reed MA - 08/05/2023 2:13 PM EDT Requested Prescriptions Pending Prescriptions Disp Refills ketamine 5% nasal spray solution (CPD) 12 mL 0 Si.1 mL/spray. Use as directed. 1 spray by nose twice per day x 3 days, then increase to 2 sprays by nose twice per day if tolerated. Added volume to account for dispenser loss. Physician office visit required for refill. [facility]06-20-2024 Miscellaneous Notes* Telephone Encounter - Nathalie Reed MA - 08/05/2023 2:13 PM EDT Requested Prescriptions Pending Prescriptions Disp Refills ketamine 5% nasal spray solution (CPD) 12 mL 0 Si.1 mL/spray. Use as directed. 1 spray by nose twice per day x 3 days, then increase to 2 sprays by nose twice per day if tolerated. Added volume to account for dispenser loss. Physician office visit required for refill. documented in this encounterThe [facility]06-[facility]-2024 [facility] 08-04-2023 [facility] [id number] [facility] [id number] [facility] [id number] Telephone encounter Note* Telephone Encounter - Allyson Cline HUC - 08/04/2023 9:29 AM EDT Lucie from [facility] pharmacy calling regarding RX just sent in for Ketamine. He states that is not something they have or can help with at [facility]. States maybe a compounding pharmacy. So RX unavailable. [facility]06-19-2024 Miscellaneous Notes* Telephone Encounter - Allyson Cline HUC - 08/04/2023 9:29 AM EDT Lucie from [facility] pharmacy calling regarding RX just sent in for Ketamine. He states that is not something they have or can help with at [facility]. States maybe a compounding pharmacy. So RX unavailable. documented in this encounterThe [facility]06-[facility] History of Present illness Narrative* Boogie Murguia MD - 08/04/2023 9:00 AM EDT Follow up Visit Patient Name: Abbey Garcia MR #: [id number] Age: [age] year old Date: August 03, [...] SD worse than population and warrants attention Cloth Examiner:Nathalie Reed MA The patient is a 33-year-old [...] associated with nausea and vomiting. The pain isaffecting the whole abdomen. No specific precipitating or relieving factor On exam alert oriented pleasant white female in no acute distress. Vital signs stable. Head normocephalic with no evidence of trauma. Neck is supple with no JVD. Abdominal exam reveals a soft abdomen. Patient has remarkable tenderness [place] to palpation even forvery light palpation in the whole abdomen/she has [...] treatment option with Dr. Ramos and her nextvisit documented in this encounterThe [facility]06-19-2024 NoteOhio[facility]06-04-2024 NoteBeth Israel Deaconess [id number] NoteB[facility] 07-18-2023 NoteBeth Israel Deaconess HospitalBdxafhhw81-74-4850 Consult note Author Keven Kimbrough [facility] July 17, 2023 2:08pm Note Date/Time July 17, 2023 1:56p m [facility] [address] [place] [address] General Surgery Consult Note Signed Patient: Abbey Garcia MR#: [id number] : 1990 Acct:[id number] Age/Sex: 33 / F Adm Date: 4 Loc: Room: [address] [place] [address] Type: ADM IN Attending Dr: Camden Rodriguez DO Copies to: Keven V KimbroughMD Thomas cruz MD Yazid Hussein, DO~ History of Present Illness Date of consult: 07/17/2023 Requesting/Attending Provider: Camden Rodriguez DO History of present illness: The patient is a 33-year-old female admitted with nausea and vomiting. Patient had Tan-en-Y gastric bypass procedure done 2021 at [facility]. In 2020, she had had [...] scheduled to have a procedure done at [facility] in the near future. CT scan here showed:IMPRESSION: Fluid-filled distal small bowel loops without gross distention. Developing small bowel obstruction cannot be excluded Currently, patient has some nausea and some upper abdominal discomfort.. Review of Systems Constitutional Constitutional: Denies fever(s) Cardiovascular Cardiovascular: Denies chest pain Respiratory Respiratory: Denies dyspnea Gastrointestinal Gastrointestinal: Reports abdominal pain, Reports nausea and Reports vomiting [facility] Medical History Encounter for PEG (percutaneous endoscopic [...] 15 Mg Tablet) 15 mg PO TID [facility] Stop: 07/16/24 13:59 Dextrose (Dextrose 50% In Water 25 Gm/50 Ml Syringe) 0 gm IV-PUSH PRN PRN PRN Reason: Hypoglycemia Stop: 07/16/24 11:08 Enoxaparin Sodium (Enoxaparin 40 Mg/0.4 Ml Syringe) 40 mg SUBCUT DAILY@10 TANIA Stop: 07/16/24 09:59 Last Admin: 07/17/23 11:23 Dose: 40 mg Escitalopram Oxalate (Escitalopram 20 Mg Tablet) 20 mg PO DAILY [facility] Stop: 07/16/24 08:59 Last Admin: 07/17/23 11:21 Dose: 20 mg Glucose (Dextrose 40% Gel 15 Gm Tube) 0 gm PO PRN PRN PRN Reason: Hypoglycemia Stop: 07/16/24 11:08 Sodium Chloride (0.9% Sodium Chloride 1,000 Ml) 1,000 mls @ 100 mls/hr IV .[id number] Stop: 07/18/24 08:59 Potassium Chloride 20 meq/ [...] 1,512.2 mls @ 63.008 mls/hr IV DAILY@1800 [facility]; Protocol Stop: 07/16/24 17:59 Fat Emulsion Intravenous 250 (ml/ IV Miscellaneous Supplies) 250 mls @ 21 mls/hr IV MOWEFR@1800 [facility] Stop: 07/18/24 17:59 Levothyroxine Sodium (Levothyroxine 75 Mcg Tablet) 75 mcg PO DAILY@0630 [facility] Stop: 07/17/24 06:29 Liothyronine Sodium (Liothyronine 5 Mcg Tablet) 5 mcg PO DAILY [facility] Stop: 07/16/24 08:59 Last Admin: 07/17/23 11:21 Dose: 5 mcg Methocarbamol (Methocarbamol 500 Mg Tablet) 500 mg PO BID [facility] Stop: 07/16/24 08:59 Last Admin: 07/17/23 11:21 Dose: 500 mg Metoclopramide HCl (Metoclopramide 10 Mg Tablet) 10 mg PO TID.AC [facility] Stop: 07/16/24 11:29 Last Admin: 07/17/23 11:21 Dose: 10 mg Mirtazapine (Mirtazapine 30 Mg Tablet) 30 mg PO HS [facility] Stop: 07/16/24 21:59 Morphine Sulfate (Morphine [...] 40 Mg Vial) 40 mg IV-PUSH DAILY [facility] Stop: 07/16/24 08:59 Last Admin: 07/17/23 11:22 Dose: 40 mg Polyethylene Glycol (Polyethylene Glycol 3350 17 Gm Powd.Pack) 17 gm PO BID PRN PRN Reason: constipation Stop: 07/16/24 09:07 Prednisone (Prednisone 5 Mg Tablet) 5 mg PO DAILY [facility] Stop: 07/17/24 08:59 Sodium Chloride (Sodium [...] Appearance Clear, Urine pH 7.5, Ur Specific Playas 1.006, Urine Protein Negative, Urine Glucose (UA) [...] % (Auto) 75.6, Lymph % (Auto) 18.7, Bracken % (Auto) 4.5, Eos % (Auto) 0.5, Baso % (Auto) 0.7, Nucleat RBC Rel Count 0.0, Neut # (Auto) 5.2, Lymph # (Auto) 1.3, Bracken # (Auto) 0.3, Eos # (Auto) 0.0, [...] being actively seen by her surgeon at [facility] for her GI issues status post gastric bypass surgery. Transfer to [facility] is pending. Patient currently does [...] times. Documented By: Keven Kimbrough MD 07/17/23 1358 Signed By: <Electronically signed by MD Keven Kimbrough> 07/17/23 140 [facility] Work Phone: 1(320) 108-193706-01-2024 History and physical note Author Camden Rodriguez [facility] July 17, 2023 11:19am Note Date/Time July 17, 2023 11:19 am [facility] [address] [place] [address] Hospitalist H&P Signed Patient: Abbey Garcia MR#: [id number] : 1990 Acct:[id number] Age/Sex: 33 / F Adm Date: 4 Loc: 4N Room: [address] [place] [address] Type: ADM IN Attending Dr: Camden Rodriguez [...] noted below or in HPI [facility] Medical History Encounter for PEG (percutaneous endoscopic [...] Mother Family history of mental disorder [facility] Problem: Diagnosed with Mental Illness Hypertension Diabetes [...] % (Auto) 18.7 % (.) 07/16/23 15:10 Bracken % (Auto) 4.5 % (.) 07/16/23 15:10 Eos % (Auto) 0.5 % (.) 07/16/23 15:10 Baso % (Auto) 0.7 % (.) 07/16/23 15:10 Nucleat RBC Rel Count 0.0 /100 WBC (0-0.5) 07/16/23 15:10 Neut # (Auto) 5.2 x10E3/uL (1.8-7.7) 07/16/23 15:10 Lymph # (Auto) 1.3 x10E3/uL (1.00-4.8) 07/16/23 15:10 Bracken # (Auto) 0.3 x10E3/uL (0.0-0.8) 07/16/23 15:10 [...] pH 7.5 (5.0-9.0) 07/16/23 15:21 Ur Specific Play[place] 1.006 (1.001-1.030) 07/16/23 15:21 Urine Protein Negative [...] signed by Camden Rodriguez DO> 07/17/23 1119 [facility] Work Phone: 1(273) 769-631305-30-2024 NoteOhiohealth Marion [facility] Hospital05-28-2024 Telephone encounter Note* Telephone Encounter - [...] have family/friend present for procedure transport home:Patient/patient procurement representative was told that if they do [...] area. 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 Type of instruction given: Verbal by telephone contact. Natalie Alarcon LPN [facility]05-28-2024 Miscellaneous Notes* Telephone Encounter - Natalie [...] have family/friend present for procedure transport home:Patient/patient procurement representative was told that if they do [...] area. 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 Type of instruction given: Verbal by telephone contact. Natalie Alarcon LPN documented in this encounterThe [facility]05-28-2024 Note [id number] 07-09-2023 NoteHNO ID: [id number] Author: PABLO LEBRON PSYD Service: ? Author Type: Psychologist Type: Progress Notes Filed: 07/09/2023 09:26 Note Text: Assessment was conducted virtually. Patient is a resident of [place], and completed the [place] virtually in [place]. Psychologist is licensed and stationed in [place]. Informed consent was discussed and verbal assent [...] exercise, positive self-talk). Sources of support (, rjtsnj-[id number], brothers, grandfather). OBJECTIVE: Utilized cognitive behavioral and [...] positive self-talk) and sources of support (, [id number]-jg-nqt, brothers, grandfather). Pt requests to end session early due to childcare needs. DIAGNOSIS: PRIMARY: 1: Depression, Controlled Generalized Anxiety Disorder Situational Stress PROVISIONAL: Unspecified trauma and stressor related disorder TREATMENT MODALITIES: Cognitive Behavioral Therapy to behavior modifications, cognitive restructuring, self monitoring and increasing pleasurable activities, Solution Focused Psychotherapy, Supportive Therapy PROGRESS TO DATE: Stem Mounter Progress: Stable Short Term Condition: Stable GOALS/OBJECTIVES/INTERVENTIONS: To identify and implement tools for effectively managing symptoms of anxiety, stress, and low mood. Approximately 15 minutes were spent with the patient doing therapy. [facility]bronPenikese [facility] History of Present illness Narrative* Pablo Lebron, [facility] - 07/09/2023 8:57 AM EDT Assessment was conducted virtually. Patient is a resident of [place], and completed the assessment virtually in [place]. Psychologist is licensed and stationed in [place]. Informed consent was discussed and verbal assent was granted by the patient. GENERAL PSYCHOLOGY Session #: 5 (session count starts after [facility] visit) SUBJECTIVE: Managing health conditions (pneumonia, kidney stone, dehydration, nausea, fatigue). Efforts to balance personal health and familial responsibilities/stress. Boundaries with mother (narcissistic, hurtful behavior). Coping tools (journaling, goal setting, daily meditation, brief/light exercise, positive self-talk). Sources of support (, pxohbs-ul-sqe, brothers, grandfather). OBJECTIVE: Utilized cognitive behavioral and [...] positive self-talk) and sources of support (, peaxzm-px-ycd, brothers, grandfather). Pt requests to end session early due to childcare needs. DIAGNOSIS: PRIMARY: 1: Depression, Controlled Generalized Anxiety Disorder Situational Stress PROVISIONAL: Unspecified trauma and stressor related disorder TREATMENT MODALITIES: Cognitive Behavioral Therapy to behavior modifications, cognitive restructuring, self monitoring and increasing pleasurable activities, Solution Focused Psychotherapy, Supportive Therapy PROGRESS TO DATE: Stem Mounter Progress: Stable Short Term Condition: Stable GOALS/OBJECTIVES/INTERVENTIONS: To identify and implement tools for effectively managing symptoms of anxiety, stress, and low mood. Approximately 15 minutes were spent with the patient doing therapy. Pablo Lebron PsyD documented in this encounterThe [facility]05-21-2024 NoteOhio[facility]05-21-2024 Nurse Note* Rosanna Blacno OCCA - 07/06/2023 1:55 PM EDT Post Void Residual done on patient with 8 cc residual volume remaining. MD notified. ALLISON Schreiber [facility]05-21-2024 Nurse Note* Rosanna Blanco OCCA - 07/06/2023 1:55 PM EDT Post Void Residual done on patient with 8 cc residual volume remaining. MD notified. ALLISON Schreiber documented in this encounterThe [facility] Hospital05-21-2024 History of Present illness Narrative* Francisco J Steve MD - 07/06/2023 1:40 PM EDT [facility] FEMALE PELVIC MEDICINE AND RECONSTRUCTIVE SURGERY PATIENT HISTORY AND PHYSICAL EXAM PATIENT INFO: Abbey Garcia is a 33 year old female. REFERRING M.D.: Marcos Moreno [address] [place] [address] [place] [address] Moreno for an [...] having recent UTI, that was treated at [facility] (although no records seen of this) and that she required a long catheter for two weeks due to high amounts in her bladder. No recent dysuria or hematuria. Does endorse some left flank pain. History of three C-sections, no vaginal deliveries QUESTIONNAIRE: Questionnaire: [facility] Ambulatory Visit Intake Questionnaire Question [...] information you will be given? No Questionnaire: [facility] Additional Demo Question Answer Is this visit related to an accident, other than Workers' Compensation? No Is this visit related to Workers' Compensation? No Do you need an denitrator? 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 Pegfeedings stopped and flushed prior to clamping. Patient TPN stopped PICC flushed patient to leave with PICC [facility]05-18-2024 Nurse Note* Tory Mcmullen RN - 07/03/2023 [...] lumen picc, per patient was placed at [facility] about a month ago for TPN [...] reach. documented in this [facility] Work Phone: 1(733) 524-318605-18-2024 Nurse Note* Tory Mcmullen RN - 07/03/2023 2:11 PM EDT Long removed per orders, discharge prepared at this time. [facility] Work Phone: 1(118) 612-997305-18-2024 History of Present illness Narrative* Dolores Cox MD - 07/03/2023 12:22 PM EDT Abbey Garcia is a 33 y.o. female on day 3 of admission presenting with Epigastric pain. Subjective She presented to the hospital with abdominal pain. She had previously undergone laparoscopic sleeve gastrectomy, on 09/03/2020 at [facility]. She has a gastrojejunostomy tube. [...] and antiemetic. [facility] for [facility]. Dolores Cox MD * Fadumo Edge RDN, SAL[place]OR - 07/02/2023 2:23 PM EDT Nutrition Progress Note messaged me for tube feed recommendations. Pt is now receiving tube feed and TPN. Nutrition Interventions and Recommendations: Nutrition Prescription: Individualized Nutrition Prescription Provided for : 5779-9575 kcals, 59-71 gm protein via parentaland enteral [...] home. Patient was active with RN from [facility] prior to admission. Patient would like to continue with their services post discharge. External referral already placed and sent to [facility]. [facility] will need to be notified via [facility] at the time of discharge. Will follow. 07/02/23 1049 Discharge Planning Home or Post Acute Services In home services Type of Home Care Services Home nursing visits Patient expects to be discharged to: Home with [facility] Does the patient need discharge transport arranged? [...] line position verification COMPARISON: 03/17/2023 ACCESSION NUMBER(S): [id number] ORDERING CLINICIAN: DOLORES COX TECHNIQUE: Single AP view chest FINDINGS: Cardiomediastinal silhouette is within normal limits. Right-sided PICC line identified with tip in the region of the mid SVC. No infiltrate or effusion is identified. Visualized osseous structures unremarkable. Impression: 1. Right PICC line placement with tip in the mid SVC. 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 Morel at [facility] for intestinal rehab Start trickle TF today Continue TPN Stop tramadol, switch to percocet as patient has been on this in the past Continue IV morphine for breakthrough pain Zofran PRN Asthma Stable, not in exacerbation HTN Stable Hypothyroidism Continue home synthroid GERD Continue PPI Dispo: if patient is tolerating TF and symptoms are improved tomorrow, will plan to discharge home with [facility]. Kina Ann MD * Shelley Nash, SPEECH PATHOLOGY SUPERVISOR-OFFSHORE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 - 07/01/2023 2:37 PM EDT Abbey Garcia [...] GI rehab program as previously recommended at [facility]. GS will sign off. I spent 15 minutes in the professional and overall care of this patient. JAMA Greenberg * Zoey Blanco RN - 07/01/2023 12:50 PM EDT Patient not medically clear. TCC met with patient to discuss discharge plans. Patient active with [facility] and would like to continue with RN only. External referral already placed andclinicals sent to agency through [facility]. They have accepted patient. Will follow. 07/01/23 1250 Discharge Planning Home or Post Acute Services In home services Type of Home Care Services Home nursing visits Patient expects to be discharged to: Home with [facility] Does the patient need discharge transport arranged? No Patient Choice Provider Choice list and [facility] website (https://medicare.gov/care-compare#search) for post-acute Quality and [...] 83 mL/hr, Last Rate: 83 mL/hr (06/30/23 176) dextrose 10 % in water (D10W), 75 mL/hr, Last Rate: 75 mL/hr (07/01/23 3900) PRN medications PRN medications: acetaminophen OR acetaminophen, albuterol, alteplase, dextrose, dextrose, glucagon, glucagon, hydrOXYzine HCL, ondansetron, sodium chloride 0.9%, traMADol Vascular US mesenteric artery duplex complete Result Date: 07/01/2023 [place] [id number] Vascular Lab Report [facility] US MESENTERIC ARTERY DUPLEX COMPLETE Patient Name: ABBEY GARCIA Reading Physician: Brandy Magaña MD Study Date: 06/30/2023 Ordering Provider: [id number] JAMIL Sandy ROMAINE MRN/PID: [id number] Fellow: Technologist: Leia Degroot RVT Date of /Age: 2 1990 / 33 years Technologist 2: Gender: F Admission Status: Inpatient Location Performed: [facility] 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 COMPARISON: 03/16/2023 ACCESSION NUMBER(S): [id number] ORDERING CLINICIAN: DAVID VALADEZ TECHNIQUE: Axial CT [...] Fly West 06/29/2023 11:53 PM Dictation workstation: [id number] CT abdomen pelvis w IV contrast Result [...] Trace ascites, also present on previous exams Sock Liner: JUANCARLOS Transcribe Date/Time: Jun 18 2023 3:00P Dictated by : KYLE HERNANDEZ MD This examination was interpreted and the report reviewed and electronically signed by: KYLE HERNANDEZ MD on Jun 18 2023 3:30PM EST CT abdomen pelvis w IV contrast Result Date: 06/06/2023 * * *Final Report* * * DATE OF EXAM: Jun 06 2023 5:47PM [facility] 0530 - CT ABD/PEL W IVCON / [...] PROCESS. NO SIGNIFICANT INTERVAL CHANGE SINCE 12/06/2022. Sock Liner: PSCB Transcribe Date/Time: Jun 06 2023 7:08P [...] vascular cause. Recommend following up with the [facility] for intestinal rehab as recommended [...] laparoscopic sleeve gastrectomy, on 09/03/2020 at the [facility]. She has a gastrojejunostomy tube. [...] relatives? Twice How often do you attend temple or jehovah's witness services? More than 4 Do you belong to any clubs or organizations such as temple groups, unions, fraternal or athletic groups, or [...] In the past 12 months has the [employer], gas, oil, or water [employer] threatened to shut off services in your [...] laparoscopic sleeve gastrectomy, on 09/03/2020 at the [facility]. She had a gastrojejunostomy tube. [...] for Epigastric pain. Pharmacy reviewed the patient's klaji-la-ypbyeekdk medications and allergies for accuracy. Medications ADDED: Methocarbamol 750 mg TID Medications CHANGED: Buspirone 10 mg Mirtazapine 30 mg Miralax Topiramate 100 mg Medications REMOVED: Diazepam 5 mg Percocet 5 mg/325 mg The list below reflects the updated DONOR RELATIONS OFFICER list. Comments regarding how patient may be [...] Low Nausea/vomiting Pharmacy has been updated to [facility]. Sources used to complete the med history include patient interview, DONOR RELATIONS OFFICER list, dispense history Below are additional concerns with the patient's DONOR RELATIONS OFFICER list. -Pt is no longer taking diazepam or Percocet -Added methocarbamol 750 mg TID -Buspirone, mirtazapine, Miralax and topiramate doses have changed Mariela Tesfaye PharmD Please reach out via [employer] Secure Chat for questions * Sherry Magaña [...] Dr. Deacon Kat, her general surgeon at [facility]. The plan from them is a referralto [facility] intestinal rehabilitation. Patient to follow up with Dr. Kats office. 06/30/23 at 8:28 AM - Sherry Magaña MD Addendum: There is conclusively no vascular etiology for patient's current pain syndrome. Needs to be referred ultimately to Dr. Deacon Kat and Intestinal Rehab unit at [facility] after stabilization. Duplex shows no compression of celiac axis or internal lesions. There is no stenosis of the celiac axis or SMA. CTA reviewed. No vascular compression documented in this [facility] Work Phone: 1([phone]) 748-627005-18-2024 Plan of care note* Care Plan - [...] monitored and maintained or improved Outcome: Progressing [facility] Work Phone: [phone]) 790-173305-18-2024 Miscellaneous Notes* Care Plan - Tory Mcmullen [...] no hearing aids. Her PCP is in [facility]; and [facility] [address] in [facility]. She has a hx of gastric bypass, c/o abd pain. No anticipated discharge needs. DISCHARGE PLAN: [facility] Phone: [phone] 353-158005-18-2024 Nurse Note* Tory Mcmullen RN - 07/03/2023 8:16 AM EDT Assumed care of patient at this time, patient is resting in bed with brake in place and call light in reach denies any needs [facility] Work Phone: [phone] 248-758205-18-2024 Nurse Note* Grecia Schaffer RN - 07/03/2023 6:49 AM EDT Chg bath performed by this nurse. Gown and linens changed. Pt ambulated to the bathroom, pt reportsliquid dark, black stool ( not witnessed by nurse). [facility]05-17-2024 Plan of care note* Care Plan - [...] did make progress toward the following goals. [facility] Work Phone: [phone] 364-382705-17-2024 Nurse Note* Yue Ferris RN - 07/02/2023 12:00 PM EDT Upon rounding right upper arm dual lumen PICC with current CHG dressing dry and intact. One port inuse, one with brisk blood return and flushes easily, clamped and Curos cap intact. [facility]05-16-2024 Plan of care note* Care [...] monitored and maintained or improved Outcome: Progressing [facility]05-16-2024 Nurse Note* Edilia Darby RN - 07/01/2023 1:56 PM EDT CXR from today verifies picc tip in mid SVC. [facility]05-16-2024 Nurse Note* Edilia Darby RN - 07/01/2023 12:48 PM EDT Patient with Rt arm dual lumen picc, per patient was placed at [facility] about a month ago for TPN [...] tip placement is needed. RN to message [facility] Work Phone: [phone] Consult note* Fadumo Edge RDN, SALVADOR - [...] renal failure superimposed on chronic kidney disease ([facility]) 06/29/2023 Anxiety Arthritis Asthma ([facility]) CPAP (continuous positive airway pressure) dependence Depression Disease of thyroid gland Dizziness GERD (gastroesophageal reflux disease) Hypothyroidism Irritable bowel syndrome with constipation Median arcuate ligament syndrome ([facility]) PCOS (polycystic ovarian syndrome) PONV [...] 83 mL/hr, Last Rate: 83 mL/hr (06/30/23 478) dextrose 10 % in water (D10W), 75 [...] Energy Needs Total Energy Estimated Needs (kCal): (2780-1591) Total Estimated Energy Need per Day (kCal/kg): (25-30) Method for Estimating Needs: ABW Estimated Protein Needs Total Protein Estimated Needs (g): (59-71) Total Protein Estimated Needs (g/kg): (1-1.2) Method for Estimating Needs: ABW Estimated Fluid Needs Total Fluid Estimated Needs (mL): (7436-1219) Method for Estimating Needs: 1 mL/kcal Nutrition Diagnosis Nutrition Diagnosis: Nutrition Diagnosis Patient has Nutrition Diagnosis: Yes Diagnosis Status (1): New Nutrition Diagnosis 1: Altered GI function Related to (1): physiological causes As Evidenced by (1): need for TPN, cannot tolerate PO/ tube feed Nutrition Interventions/Recommendations Nutrition Interventions and Recommendations: Nutrition Prescription: Individualized Nutrition Prescription Provided for : 0369-1729 kcals, 59-71 gm protein via parentalnutrition Nutrition [...] Needed?: 3-5 days Follow up Comment: 07/05/23 [facility] Work Phone: [phone] 938-827105-16-2024 Consult note* Fadumo Edge RDN, SALVADOR - [...] renal failure superimposed on chronic kidney disease ([facility]) 06/29/2023 Anxiety Arthritis Asthma ([facility]) CPAP (continuous positive airway pressure) dependence Depression Disease of thyroid gland Dizziness GERD (gastroesophageal reflux disease) Hypothyroidism Irritable bowel syndrome with constipation Median arcuate ligament syndrome ([facility]) PCOS (polycystic ovarian syndrome) PONV (postoperative [...] 75 mL/hr, Last Rate: 75 mL/hr (07/01/23 3314) Dietary Orders (From admission, onward) Start Ordered 06/30/231747 May Participate in Room Service Once Question: . Answer: Yes 06/30/23174706/30/23 022 NPO Diet Except: Sips with meds; Effective now Diet effective now Question: Except: Answer: Sips with meds 06/30/23 0230 Nutrition Support Intake provides: 1420 kcals, 100 gm protein, 2000 mL total volume Estimated Needs: Estimated Energy Needs Total Energy Estimated Needs (kCal): (1808-3102) Total Estimated Energy Need per Day (kCal/kg): (25-30) Method for Estimating Needs: ABW Estimated Protein Needs Total Protein Estimated Needs (g): (59-71) Total Protein Estimated Needs (g/kg): (1-1.2) Method for Estimating Needs: ABW Estimated Fluid Needs Total Fluid Estimated Needs (mL): (1722-1831) Method for Estimating Needs: 1 mL/kcal Nutrition Diagnosis Nutrition Diagnosis: Nutrition Diagnosis Patient has Nutrition Diagnosis: Yes Diagnosis Status (1): New Nutrition Diagnosis 1: Altered GI function Related to (1): physiological causes As Evidenced by (1): need for TPN, cannot tolerate PO/ tube feed Nutrition Interventions/Recommendations Nutrition Interventions and Recommendations: Nutrition Prescription: Individualized Nutrition Prescription Provided for : 5527-3891 kcals, 59-71 gm protein via parentalnutrition Nutrition [...] for which she follows a surgeon at [facility]. They have been trying to [...] renal failure superimposed on chronic kidney disease ([facility]) (06/29/2023), Anxiety, Arthritis, Asthma ([facility]), CPAP (continuous positive airway pressure) dependence, Depression, Disease of thyroid gland, Dizziness, GERD (gastroesophageal reflux disease), H ypothyroidism, Irritable bowel syndrome, Median arcuate ligament syndrome ([facility]), PCOS (polycystic ovarian syndrome), PONV (postoperative nausea and vomiting), PUD (peptic ulcer disease), and Shortness of breath. She has no past medical history of Autoimmune disorder (Multi), Bipolar disorder (Multi), BPH (benign prostatic hyperplasia), Cerebral aneurysm ([facility]), Cervical cancer (Multi), Cervical disc disease, Chronic kidney disease, CKD (chronic kidney disease), Cognitive decline, Crohn's disease (Multi), Dementia (Multi), Dysphagia, Endometrial cancer (Multi), Esophageal cancer (Multi), Esophageal disease, ESRD (end stage renal disease) (Multi), Fibromyalgia, primary, Fractures, Gastric cancer (Multi), Gender dysphoria, GI (gastrointestinal bleed), Hemodialysis status ([facility]), Hernia, internal, H istory of peritoneal dialysis, HIV disease (Multi), Immunocompromised (Multi), Liver disease, Lumbar disc disease, Mastocytosis, MS (multiple sclerosis) (Multi), Muscular dystrophy (Multi), Myasthenia gravis (Multi), Neuromuscular disorder (Multi), Ovarian cancer (Multi), Pancreatitis ([facility]), Peptic ulcer disease, Prematurity ([facility]), PTSD (post-traumatic stress disorder), Schizophrenia (Multi), Seizure disorder (Multi), Spinal stenosis, Substance addiction ([facility]), Syncope, TIA (transientischemic attack), Ulcerative colitis (Multi), [...] Hypertension Mother Jessica Artino Cancer Maternal Grandfather Danyell Kraus COPD Maternal Grandfather Danyell Kraus Heart disease Maternal Grandfather Danyell Kraus Kidney disease Maternal Grandfather Danyell Kraus Hypertension Maternal Grandmother Grandpa Anesthesia problems [...] Yellow, Dark-Yellow Appearance, Urine Clear Clear Specific [place], Urine 1.023 1.005 - 1.035 pH, Urine [...] Audie Gutierrez 06/30/2023 12:06 PM Dictation workstation: [id number] Vascular US mesenteric artery duplex complete Result Date: 06/30/2023 [place] [address] Preliminary Vascular Lab Report [facility] US MESENTERIC ARTERY DUPLEX COMPLETE Patient Name: ABBEY Oneil Physician: [id number] Magaña MD Study Date: 06/30/2023 Ordering Provider: [id number] JAMIL GAVIN MRN/PID: [id number] Fellow: Technologist: Leia Degroot RVT Date of : 1990 Technologist 2: Gender: F Admission Status: Inpatient Location Performed: [facility] 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 COMPARISON: 03/16/2023 ACCESSION NUMBER(S): [id number] ORDERING CLINICIAN: DAVID VALADEZ TECHNIQUE: Axial CT [...] Fly West 06/29/2023 11:53 PM Dictation workstation: [id number] Assessment/Plan Abdominal pain FTT 33-year-old female with complicated history after gastric bypass surgery. She has been working witha surgeon at [facility] to advance her tube feeds and oral intake and decrease the TPN, however this has been unsuccessful. She was evaluated by Dr. Magaña here and there is no evidence of celiac or SMA stenosis or compression. There is an intestinal rehabilitation program through [facility] and recommend follow-up with that program. Cont [...] nausea aftera gastric bypass surgery done at [facility] in which she has been hospitalized [...] 06/30/2023 CREATININE 0.60 06/30/2023 * Tiffanie Mendez, [employer]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 - 06/30/2023 8:31 AM EDTAssociated Order(s): IP CONSULT TO VASCULAR SURGERY Reason for Consult Mid epigastric abdominal pain History Of Present Illness This is a 33-year-old female with past medical history of chronic abdominal pain, PCOS, PUD, depression, GERD, IBS, obesity (status post laparoscopic sleeve gastrectomy in August [address] Ku ecwGusn-fy-I gastric bypass 01/29/[address] Kat) and median arcuate ligament syndrome who presented to the emergency department for further evaluation of mid epigastric abdominal pain and nausea. Jonh jose follows with GI and general surgery with the [facility] and is currently on TPN [...] also spoke with her general surgeon at [facility] where patient was advised for referral to [facility] intestinal rehabilitation. Past Medical History Past Medical [...] No Food Insecurity (06/07/2023) Received from [facility] Hunger Vital Sign Worried About Running Out of Food in the Last Year: Never true Ran Out of Food in the Last Year: Never true Transportation Needs: No Transportation Needs (06/07/2023) Received from [facility] PRAPARE - Transportation Lack of Transportation (Medical): No Lack of Transportation (Non-Medical): No Physical Activity: Insufficiently Active (10/28/2022) Received from [facility] Exercise Vital Sign Days of Exercise per Week: 4 days Minutes of Exercise per Session: 30 min Stress: Stress Concern Present (10/28/2022) Received from [facility] [employer] [place] [employer] - Occupational Stress Questionnaire Feeling of Stress : To some extent Social Connections: Socially Integrated (10/28/2022) Received from [facility] Social Connection and Isolation Panel [NHANES] Frequency of Communication with Friends and Family: More than three times a week Frequency of Social Gatherings with Friends and Family: Once a week Attends Cheondoism Services: 1 to 4 times per year Active Member of Clubs or Organizations: Yes Attends Club or Organization Meetings: More than 4 times per year Marital Status: Intimate Partner Violence: Not on file Housing Stability: Low Risk (06/07/2023) Received from [facility] Housing Stability Vital Sign Unable to Pay for Housing in the Last Year: No Number of Places Lived in the Last Year: 1 Unstable Housing in the Last Year: No Family History Family History Problem Relation Name Age of Onset Diabetes Mother Jessica Artino Hypertension Mother Jessica Artino Cancer Maternal Grandfather Danyell Kraus COPD Maternal Grandfather Danyell Kraus Heart disease Maternal Grandfather Danyell Kraus Kidney disease Maternal Grandfather Danyell Kraus Hypertension Maternal Grandmother Grandpa Anesthesia problems Paternal Grandfather Elan Artino Arthritis Paternal Grandfather Lean Artino Hypertension Paternal Grandfather Elan Artino Anesthesia [...] Yellow, Dark-Yellow Appearance, Urine Clear Clear Specific [place], Urine 1.023 1.005 - 1.035 pH, Urine [...] INDICATION: Signs/Symptoms:Abdominal pain. COMPARISON: 03/16/2023 ACCESSION NUMBER(S): [id number] ORDERING CLINICIAN: DAVID VALADEZ TECHNIQUE: Axial CT [...] Fly West 06/29/2023 11:53 PM Dictation workstation: [id number] Physical exam Constitutional: Alert and oriented to [...] for episodes of hypoglycemia [facility] Phone: [phone]) [phone] Nurse Note* Mayda Balbuena LPN - 07/01/2023 2:30 AM EDT Pt alert and oriented, long intact, clear yellow urine , medicated twice for left epigastric pain with somewhat effect, TPN running at 83ml/hr, tolerating well, no sign of adverse reaction, pt remain NPO , sips with meds, pt in no acute distress, all safety measures in place, call light within reach. [facility]05-15-2024 Plan of care note* Care Plan - Mayda Balbuena LPN - 06/30/2023 10:12 PM EDT The patient's goals for the shift include feel better The clinical goals for the shift include pain control [facility] Work Phone: [phone] Consult note* Tomasa Ortiz MD - 06/30/2023 [...] for which she follows a surgeon at [facility]. They have been trying to [...] renal failure superimposed on chronic kidney disease ([facility]) (06/29/2023), Anxiety, Arthritis, Asthma ([facility]), CPAP (continuous positive airway pressure) dependence, [...] (Multi), BPH (benign prostatic hyperplasia), Cerebral aneurysm ([facility]), Cervical cancer (Multi), Cervical disc disease, Chronic kidney disease, CKD (chronic kidney disease), Cognitive decline, Crohn's disease (Multi), Dementia (Multi), Dysphagia, Endometrial cancer (Multi), Esophageal cancer (Multi), Esophageal disease, ESRD (end stage renal disease) ([facility]), Fibromyalgia, primary, Fractures, Gastric cancer (Multi), Gender dysphoria, GI (gastrointestinal bleed), Hemodialysis status ([facility]), Hernia, internal, H istory of peritoneal dialysis, HIV disease (Multi), Immunocompromised (Multi), Liver disease, Lumbar disc disease, Mastocytosis, MS (multiple sclerosis) ([facility]), Muscular dystrophy (Multi), Myasthenia gravis (Multi), Neuromuscular disorder (Multi), Ovarian cancer (Multi), Pancreatitis ([facility]), Peptic ulcer disease, Prematurity ([facility]), PTSD (post-traumatic stress disorder), Schizophrenia (Multi), Seizure disorder (Multi), Spinal stenosis, Substance addiction (Multi), Syncope, TIA (transientischemic attack), Ulcerative colitis (Multi), Urinary tract infection, Uterine cancer ([facility]), or Vertigo. Surgical History She has a [...] Hypertension Mother Jessica Jeterino Cancer Maternal Grandfather Danyell Kraus COPD Maternal Grandfather Danyell Kraus Heart disease Maternal Grandfather Danyell Kraus Kidney disease Maternal Grandfather Danyell Kraus Hypertension Maternal Grandmother Grandpa Anesthesia problems [...] Yellow, Dark-Yellow Appearance, Urine Clear Clear Specific [place], Urine 1.023 1.005 - 1.035 pH, Urine [...] Audie Gutierrez 06/30/2023 12:06 PM Dictation workstation: [id number] Vascular US mesenteric artery duplex complete Result Date: 06/30/2023 [place] [address] Preliminary Vascular Lab Report [facility] US MESENTERIC ARTERY DUPLEX COMPLETE Patient Name: ABBEYPOPPY GARCIA Reading Physician: [id number] Sherry Magaña MD Study Date: 06/30/2023 Ordering Provider: [id number] JAMIL GAVIN MRN/PID: [id number] Fellow: Technologist: Leia Degroot RVT Date of : 1990 Technologist 2: Gender: F Admission Status: Inpatient Location Performed: [facility] 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 COMPARISON: 03/16/2023 ACCESSION NUMBER(S): [id number] ORDERING CLINICIAN: DAVID VALADEZ TECHNIQUE: Axial CT [...] Fly West 06/29/2023 11:53 PM Dictation workstation: [id number] Assessment/Plan Abdominal pain FTT 33-year-old female with complicated history after gastric bypass surgery. She has been working witha surgeon at [facility] to advance her tube feeds and oral intake and decrease the TPN, however this has been unsuccessful. She was evaluated by Dr. Magaña here and there is no evidence of celiac or SMA stenosis or compression. There is an intestinal rehabilitation program through [facility] and recommend follow-up with that program. Cont TPN for nutrition and PO/tube feeds as tolerated in the meantime Tomasa Ortiz MD [facility] Work Phone: [phone]) [phone] Plan of care note* Care Plan - [...] no hearing aids. Her PCP is in [facility]; and [facility] [address] [facility]. She has a hx of gastric bypass, c/o abd pain. No anticipated discharge needs. DISCHARGE PLAN: HOME WITH [facility] Work Phone: [phone] Consult note* JAMA Solis - 06/30/2023 11:27 [...] nausea aftera gastric bypass surgery done at [facility] in which she has been hospitalized [...] 06/30/2023 BUN 14 06/30/2023 CREATININE 0.60 06/30/2023 T [facility] Work Phone: [phone]) 592-692205-15-2024 Consult note* JAMA Judd - 06/30/2023 8:31 AM EDTAssociated Order(s): IP CONSULT TO VASCULAR SURGERY Reason for Consult Mid epigastric abdominal pain History Of Present Illness This is a 33-year-old female with past medical history of chronic abdominal pain, PCOS, PUD, depression, GERD, IBS, obesity (status post laparoscopic sleeve gastrectomy in August [address] Ku dllSqkq-yv-N gastric bypass 01/29/[address] Kat) and median arcuate ligament syndrome who presented to the emergency department for further evaluation of mid epigastric abdominal pain and nausea. Jonh jose follows with GI and general surgery with the [facility] and is currently on TPN [...] also spoke with her general surgeon at [facility] where patient was advised for referral to [facility] intestinal rehabilitation. Past Medical History Past Medical History: Diagnosis Date Acute renal failure superimposed on chronic kidney disease ([facility]) 06/29/2023 Anxiety Arthritis Asthma ([facility]) CPAP (continuous positive airway pressure) dependence Depression Dizziness GERD (gastroesophageal reflux disease) Hypothyroidism Irritable bowel syndrome with constipation Median arcuate ligament syndrome ([facility]) PCOS (polycystic ovarian syndrome) PONV [...] No Food Insecurity (06/07/2023) Received from [facility] Hunger Vital Sign Worried About Running Out of Food in the Last Year: Never true Ran Out of Food in the Last Year: Never true Transportation Needs: No Transportation Needs (06/07/2023) Received from [facility] PRAPARE - Transportation Lack of Transportation (Medical): No Lack of Transportation (Non-Medical): No Physical Activity: Insufficiently Active (10/28/2022) Received from [facility] Exercise Vital Sign Days of Exercise per Week: 4 days Minutes of Exercise per Session: 30 min Stress: Stress Concern Present (10/28/2022) Received from [facility] [employer] [place] [employer] - Occupational Stress Questionnaire Feeling of Stress : To some extent Social Connections: Socially Integrated (10/28/2022) Received from [facility] Social Connection and Isolation Panel [NHANES] Frequency of Communication with Friends and Family: More than three times a week Frequency of Social Gatherings with Friends and Family: Once a week Attends Cheondoism Services: 1 to 4 times per year Active Member of Clubs or Organizations: Yes Attends Club or Organization Meetings: More than 4 times per year Marital Status: Intimate Partner Violence: Not on file Housing Stability: Low Risk (06/07/2023) Received from [facility] Housing Stability Vital Sign Unable to Pay for Housing in the Last Year: No Number of Places Lived in the Last Year: 1 Unstable Housing in the Last Year: No Family History Family History Problem Relation Name Age of Onset Diabetes Mother Jessica Artino Hypertension Mother Jessica Artino Cancer Maternal Grandfather Danyell Kraus COPD Maternal Grandfather Danyell Kraus Heart disease Maternal Grandfather Danyell Kraus Kidney disease Maternal Grandfather Danyell Kraus Hypertension Maternal Grandmother Grandpa Anesthesia problems [...] Yellow, Dark-Yellow Appearance, Urine Clear Clear Specific [place], Urine 1.023 1.005 - 1.035 pH, Urine [...] INDICATION: Signs/Symptoms:Abdominal pain. COMPARISON: 03/16/2023 ACCESSION NUMBER(S): [id number] ORDERING CLINICIAN: DAVID VALADEZ TECHNIQUE: Axial CT [...] [place] 06/29/2023 11:53 PM Dictation workstation: [id number] Physical exam Constitutional: Alert and oriented to [...] Needs further workup for episodes of hypoglycemia [facility] Work Phone: 1(926) 570-746305-15-2024 Emergency department Note* Carla Alejo LPN - 06/30/2023 6:43 AM EDT Patient in gown at this time no c/o pain or discomfort no needs made known at this time Patient sleeping, chest rises and falls at equal intervals and patient takes breaths. Responds verbaly to calling of name and acknowledges this nurses presence in room Carla Alejo LPN 06/30/23 0645 [facility]05-15-2024 Emergency department Note* Carla Alejo LPN - [...] lab Carla Alejo LPN 06/29/232057 * David Valadez, DO - 06/29/2023 5:37 PM EDT HPI [...] orchills. No chest pain. No other complaints. [place] Coma Scale Score: 15 Patient History Past Medical History: Diagnosis Date Acute renal failure superimposed on chronic kidney disease ([facility]) 06/29/2023 Anxiety Arthritis Asthma ([facility]) CPAP (continuous positive airway pressure) dependence Depression Dizziness GERD (gastroesophageal reflux disease) Hypothyroidism Irritable bowel syndrome with constipation Median arcuate ligament syndrome ([facility]) PCOS (polycystic ovarian syndrome) PONV (postoperative [...] Hypertension Mother Jessica Artino Cancer Maternal Grandfather Danyell Kraus COPD Maternal Grandfather Danyell Kraus Heart disease Maternal Grandfather Danyell Kraus Kidney disease Maternal Grandfather Danyell Efra Hypertension Maternal Grandmother Grandpa Anesthesia problems [...] interpretation: Sinus rhythm 59 bpm normal axis UT interval 140 QTc 453 no ectopy or [...] Alejo LPN 06/29/23 2312 documented in this [facility] Work Phone: 1(687) 879-161005-15-2024 Emergency department Note* Carla Alejo LPN - 06/30/2023 5:48 AM EDT Patient vitals taken, labs drawn and sent and patient medicated for pain , vitals taken and charted, no c/o discomfort or other needs at this time Carla Alejo LPN 06/30/23 0549 [facility] Work Phone: 1(881) 770-844805-15-2024 History and physical note* Baldomero Woodard MD - 06/30/2023 2:40 AM EDT History Of Present Illness Abbey Garcia is a 33 y.o. female presenting with 2-year history of abdominal pain and nausea after a gastric bypass surgery done at [facility] she has been hospitalized multiple times for this. She has a combination gastric tube jejunostomy tube which is supposed to be used for tube feeds she is on TPN. She has a surgeon at [facility] but she also sees Dr. Magaña [...] Onset Diabetes Mother Jessica Jeterino Hypertension Mother Jessicagrace Jeterino Cancer Maternal Grandfather Danyell Kraus COPD Maternal Grandfather Danyell Kraus Heart disease Maternal Grandfather Danyell Kraus Kidney disease Maternal Grandfather Danyell Kraus Hypertension Maternal Grandmother Grandpa Anesthesia problems [...] get her nausea under control with Reglan wtrhg-alh-vrrri will consult general surgery to help with this complicated acute on chronic situation will order subcu heparin IV Protonix will make sure her gastric tube in her J- tube gets flushed. 3 times a day will order most of her home meds the way she takes them at home either by mouth or for through the J-tube. Baldomero Woodard MD [facility] Work Phone: 1(130) [phone] History and physical note* Baldomero Woodard MD - 06/30/2023 2:40 AM EDT History Of Present Illness Abbey Garcia is a 33 y.o. female presenting with 2-year history of abdominal pain and nausea after a gastric bypass surgery done at [facility] she has been hospitalized multiple times for this. She has a combination gastric tube jejunostomy tube which is supposed to be used for tube feeds she is on TPN. She has a surgeon at [facility] but she also sees Dr. Magaña [...] Hypertension Mother Jessica Jeterino Cancer Maternal Grandfather Danyell Kraus COPD Maternal Grandfather Danyell Kraus Heart disease Maternal Grandfather Danyell Kraus Kidney disease Maternal Grandfather Danyell Kraus Hypertension Maternal Grandmother Grandpa Anesthesia problems [...] get her nausea under control with Reglan ldjmp-nwn-dmqnm will consult general surgery to help with this complicated acute on chronic situation will order subcu heparin IV Protonix will make sure her gastric tube in her J- tube gets flushed. 3 times a day will order most of her home meds the way she takes them at home either by mouth or for through the J-tube. Baldomero Woodard MD [facility]: 1(296) 328-567305-14-2024 Emergency department Note* Carla Alejo LPN - 06/29/2023 8:57 PM EDT Assumed care of patient , labs drawn originally while tpn was attached and running , blood glucose redone via fingerstick with result of 117 and cbc/bmp reordered STAT , drawn and sent to lab Carla Alejo LPN 06/29/232057 [facility] Work Phone: 1(537) 235-956905-14-2024 Emergency department Note* Carla Alejo LPN - 06/29/2023 5:37 PM EDT medications held at this time per ED physician verbal order Carla Alejo LPN 06/29/232311 [facility] Work Phone: 1(998) 309-840205-14-2024 Physician Emergency department Note* David Valadez DO [...] renal failure superimposed on chronic kidney disease ([facility]) 06/29/2023 Anxiety Arthritis Asthma ([facility]) CPAP (continuous positive airway pressure) dependence Depression Dizziness GERD (gastroesophageal reflux disease) Hypothyroidism Irritable bowel syndrome with constipation Median arcuate ligament syndrome ([facility]) PCOS (polycystic ovarian syndrome) PONV (postoperative nausea [...] Hypertension Mother Jessica Artino Cancer Maternal Grandfather Danyell Kraus COPD Maternal Grandfather Danyell Kraus Heart disease Maternal Grandfather Danyell Kraus Kidney disease Maternal Grandfather Danyell Kraus Hypertension Maternal Grandmother Grandpa Anesthesia problems [...] interpretation: Sinus rhythm 59 bpm normal axis UT interval 140 QTc 453 no ectopy or [...] admission. Procedure Procedures David Valadez DO 06/30/23243 [facility] Work Phone: 1(228) 830-763805-07-2024 History of Present illness Narrative* Sherry Magaña MD - 06/22/2023 11:45 AM EDT Patient and I had a video conference as she was at home in [place] and I was at the [facility] vascular elsah. She reports doing poorly with bouts of [...] minutes documented in this [facility] Work Phone: 1(219) 687-831705-03-2024 Note [id number]#1.00TIFFFadan [facility] 06-18-2023 History of Present illness Narrative* Breanna Stern APRN.OFFSHORE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 - 06/18/2023 10:00 AM EDT Assessment Postoperative [...] Kat Follow up with Dr Jacquelyn Stern APRN.OFFSHORE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 [facility] Nurse Note* Yaneth Mitchell MA - 06/18/2023 9:35 AM EDT What is the reason for your visit today? Post op PEG-J placement Who is your referring physician? Are you having poor oral intake? YES Have you had unintentional weight loss of 15 lbs/7 Kg in the last 3-6 months? NO Bowels: diarrhea Wound: Temperature: No Drains: No [facility]05-03-2024 Nurse Note* Yaneth Mitchell MA - 06/18/2023 9:35 AM EDT What is the reason for your visit today? Post op PEG-J placement Who is your referring physician? Are you having poor oral intake? YES Have you had unintentional weight loss of 15 lbs/7 Kg in the last 3-6 months? NO Bowels: diarrhea Wound: Temperature: No Drains: No documented in [facility]The [facility]24 Telephone encounter Note * Telephone Encounter [...] scheduling provider for ketamine refill appt. [facility]05-02-2024 Miscellaneous Notes* Telephone Encounter - Clarence [...] ketamine refill appt. documented in [facility]The [facility] Telephone encounter Note * Telephone Encounter - Serena Neff - 06/17/2023 11:40 AM EDT Phoned Malka back with Dr. Kat's response. He will not be managing patient's TPN. Malka advised that she arranged for hospitalist to manage. Serena Neff STAFF DEVELOPMENT COORDINATOR RN Senior Technical Editor for Dr. Kat [facility]05-02-2024 Miscellaneous Notes* Telephone Encounter - Serena Neff - 06/17/2023 11:40 AM EDT Phoned Malka back with Dr. Kat's response. He will not be managing patient's TPN. Malka advised that she arranged for hospitalist to manage. Serena Neff RN BSN Senior Technical Editor for Dr. Kat * Telephone Encounter - Dorita Manning - 06/15/2023 3:20 PM EDT Malka from [facility] calling asking if Dr Kat will follow patient for TPN. Physician there is discharging patient on TPN. CB# [phone] ext [phone] documented in [facility]The [facility]04-30-[facility]24 Telephone encounter Note * Telephone Encounter - Dorita Manning - 06/15/2023 3:20 PM EDT Malka from [facility] calling asking if Dr Kat will follow patient for TPN. Physician there is discharging patient on TPN. CB# [phone] ext [phone] [facility]04-30-2024 [id number] [facility]04-29-2024 Telephone encounter Note* Telephone Encounter - Stephanie Sumner DO - 06/14/2023 4:39 PM EDT Hospital Medicine Transfer Received page for transfer request from [facility] to [place]: Abbey Garcia is 33 year old female who presented with nausea, vomiting and worsening LUQ pain. Pt has complicated gastric surgery history and is currently doing TF via PEG for nutrition. Per [place] ED pt is HDS and electrolytes are stable. Pt is requesting transfer to because that is where her care team is and states she only went to [place] ED because they have short wait times. ED team gave IVF and IV pain meds which improved LUQ pain somewhat. Pts notified Dr Kat that she was going to ED. Reason for transfer: continuity of care Accepted to hospital medicine service at [place] Stephanie Sumner DO 4:39 PM [facility] Work Phone: 1(810) 697-445304-29-2024 Miscellaneous Notes* Telephone Encounter - Stephanie Sumner DO - 06/14/2023 4:39 PM EDT Hospital Medicine Transfer Received page for transfer request from [facility] to [place]: Abbey Garcia is 33 year old female who presented with nausea, vomiting and worsening LUQ pain. Pt has complicated gastric surgery history and is currently doing TF via PEG for nutrition. Per [place] ED pt is HDS and electrolytes are stable. Pt is requesting transfer to because that is where her care team is and states she only went to [place] ED because they have short wait times. ED team gave IVF and IV pain meds which improved LUQ pain somewhat. Pts notified Dr Kat that she was going to ED. Reason for transfer: continuity of care Accepted to hospital medicine service at [place] Stephanie Sumner DO 4:39 PM documented in this encounterThe [facility]04-29-2024 Telephone encounter Note * Telephone Encounter - Serena Neff - 06/14/2023 3:31 PM EDT Phoned patient and to discuss ED admission today. Pt is being transferred from [facility] to [facility]. Patient complaining of worsening left sided [...] at this time. Serena Neff RN BSN Senior Technical Editor for Dr. Kat [facility]04-29-2024 Miscellaneous Notes* Telephone Encounter - Serena Neff - 06/14/2023 3:31 PM EDT Phoned patient and to discuss ED admission today. Pt is being transferred from [facility] to [facility]. Patient complaining of worsening left sided [...] at this time. Serena Neff RN BSN Senior Technical Editor for Dr. Kat documented in this encounterThe [facility] Hospital04-26-2024 Note [id number] [facility] 06-09-2023 NoteHNO ID: [id number] Author: PABLO LEBRON PSYD Service: ? Author Type: Psychologist Type: Progress Notes Filed: 06/09/2023 09:52 Note Text: Assessment was conducted virtually. Patient is a resident of [place], and completed the assessment virtually in [place]. Psychologist is licensed and stationed in [place]. 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 Appreciative of supportive and [...] Focused Psychotherapy, Supportive Therapy PROGRESS TO DATE: Stem Mounter Progress: Stable Short Term Condition: Stable GOALS/OBJECTIVES/INTERVENTIONS: To identify and implement tools for effectively managing symptoms of anxiety, stress, and low mood. Approximately 45 minutes were spent with the patient doing therapy. Pablo Lebron [facility]04-24-2024 History of Present illness Narrative* Pablo Lebron, [facility] - 06/09/2023 8:59 AM EDT Assessment was conducted virtually. Patient is a resident of [place], and completed the assessment virtually in [place]. Psychologist is licensed and stationed in [place]. 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 Appreciative of supportive and [...] Pablo Lebron PsyD documented in this [facility]The [facility]04-23-2024 [facility] 06-07-2023 [facility] HospitalBwqtgkth91-07-8987 [facility]Ohio[facility]04-16-2024 [facility]Ohio[facility]04-16-2024 History of Present illness Narrative* Vic Ramos MD - 06/01/2023 4:28 PM EDT TELEMEDICINE VISIT Modified Protocol for treatment of other conditions supportive of goal to minimize vulnerable patient exposure to Covid-19 [place] of Emergency Consented for encounter Patient verified by name and Abbey Garcia [id number] 1990 Patient consents to virtual visit Patient located at home Dr. Ramos located at [facility] office SUBJECTIVE: The patient presents to [facility] Pain Management Department for pain in [...] which included preparing to see the patient, puaz-fj-gfbi patient care, completing clinical documentation, obtaining and/or [...] June 01, 2023 documented in this encounterThe [facility]04-15-2024 Note [id number] 05-30-2023 Miscellaneous Notes* Telephone Encounter - Deacon Kat MD - 05/30/2023 10:16 AM EDT Significant constipation - no bm since Wednesday, a lot of rectal pressure. Tried her linzess, miralax. Recommended enema OTC + dulcolax suppository. Contact me if not improved. Deacon Kat MD documented in this encounterThe [facility]04-12-2024 Miscellaneous Notes* Telephone Encounter - Nabila Jackson RPh - 05/28/2023 5:48 PM EDT ERx for Nutren sent to [facility] today. These orders are unable to be processed here, but may be eligible to fill using [facility] at [place]. Please review and if appropriate, send forward for processing. Thank you! [facility] [phone] documented in this encounterThe [facility] Hospital04-12-2024 [facility] 05-28-2023 Miscellaneous Notes* Telephone Encounter - [...] advise. Grecia Wallace documented in this encounterThe [facility]04-12-2024 [facility]23 NoteHNO ID: [id number] Author: EH KIMBALL, RN Service: Nursing Author Type: Registered Nurse Type: Nursing Progress Note Filed: 05/27/2023 09:20 Note Text: Other: 0900 Pt verbalizes interest about bolus feeding. Tawer made aware. [facility] HospitalJitrxrfi50-29-2838 NoteB[facility] Deaconess HospitalXemmchsa91-72-5056 NoteB[facility] Israel Deaconess HospitalEckoeueu74-86-6279 NoteB[facility] Deaconess HospitalFturmztl77-75-7226 Note [id number] Hospitals [facility]aug[facility] 05-22-2023 NoteB[facility] Deaconess HospitalTrfnvpca29-66-9322 NoteB[facility] Deaconess HospitalEbswlgvn02-56-8669 Note [facility] HospitalLojxyoms83-86-7117 NoteB[facility] Israel Deaconess HospitalNwtzazyd36-32-9991 Telephone encounter Note* Telephone Encounter - Itzel Hurley RN - 05/18/2023 9:25 AM EDT Images from the original note were not included. EGD images; please review [facility]GD Report 05/12/2023 [facility]04-02-2024 Miscellaneous Notes* Telephone Encounter - Itzel Hurley RN - 05/18/2023 9:25 AM EDT Images from the original note were not included. EGD images; please review [facility] Axel EGD Report 05/12/2023 * Telephone Encounter - Silvina Brown - 05/18/2023 9:20 AM EDT Received records from [facility]. EGD dated 05/12/2023 Discharge Summary 05/11 to 05/14/2023 Ct Abdomen/Pelvis 05/11/2023 Please review thank you! documented in this encounterThe [facility] Hospital04-02-2024 Telephone encounter Note * Telephone Encounter - Silvina Brown - 05/18/2023 9:20 AM EDT Received records from [facility]. EGD dated 05/12/2023 Discharge Summary 05/11 to 05/14/2023 Ct Abdomen/Pelvis 05/11/2023 Please review thank you! [facility]04-01-2024 Hospital Discharge instructions Patient Education 05/17/2023 [...] at pharmacies and retail stores. Eat bland, qowv-oo-zqhnbk foods in small amounts as you are [...] and water are not available, use hand software release engineer. Make sure that everyone in your household washes their hands frequently. Take ubad-ppx-dbusexl and prescription medicines only as told by [...] and water are not available, use hand software release engineer. Watch your condition for any changes and for signs of dehydration. Keep all follow-up visits. This is important. This information is not intended to replace advice given to you by your health care provider. Make sure you discuss any questions you have with your health care provider. Document Revised: 08/08/2021 Document Reviewed: 08/08/2021 Appy Couple Patient Education 2022 Ping4. Follow Up Care 05/17/2023 14:15:17 With:Cristhian REDDING, Jaquan Johnson, EARNEST, MED Address: When:05/20/2023 [facility]04-01-2024 History of Present illness Narrative* Deacon Kat MD - 05/17/2023 2:40 PM EDT VIRTUAL VISIT PROGRESS NOTE This is a virtual visit using FolioDynamixhart Zoom Video Visit. It required patient- provider interaction for the medical decision making as documented below. I have communicated my name and active licensure. The patient's identity and physical location wereverified at the time of this visit. Either the patient or their legal procurement representative has been informed of the risks [...] PM -------- ORIGINAL REPORT -------- Dictation workstation: [id number] Impression Postsurgical changes from gastric bypass. No evidence for obstruction.. MACRO: none Signed by: Corie Garza 03/17/2023 5:00 PM Dictation workstation: [id number] Narrative Interpreted By: Corie Garza, STUDY: FL UPPER GI W DOUBLE CONTRAST W SMALL BOWEL FOLLOW THROUGH; 03/17/2023 4:40 pm INDICATION: Signs/Symptoms:abdominal pain. COMPARISON: None. ACCESSION NUMBER(S): [id number] ORDERING CLINICIAN: TIFFANIE MENDEZ TECHNIQUE: Multiple fluoroscopic spot images were obtained during a single contrast upper GI with KUB. Total fluoroscopy time: 1 minute 32 seconds Radiation exposure (Reference Air Kerma): 99.36 mGy Images: 2 spot images 7 series and 2 delayed AP views of the abdomen FINDINGS: Ems Coordinator images demonstrate postsurgical changes from previous Tan-en-Y [...] Corie Garza 03/16/2023 5:46 PM Dictation workstation: [id number] Narrative Interpreted By: Corie Garza, STUDY: CT ABDOMEN PELVIS W IV CONTRAST; 03/16/2023 5:27 pm INDICATION: Signs/Symptoms:abdominal pain - with oral and IV contrast. COMPARISON: None.. ACCESSION NUMBER(S): [id number] ORDERING CLINICIAN: TIFFANIE MENDEZ TECHNIQUE: Oral contrast [...] Deacon Kat MD documented in this encounterThe [facility] Hospital04-01-2024 [facility]Ohio[facility]04-01-2024 Evaluation + Plan noteExtracted from: Title:ED [...] Appointment Date:05/19/2023 10:40:00 AM Scheduled Provider:Jaquan Paula Location:[facility] Appointment Type: Hospital Follow Up w/TCM Appointment Date:07/13/2023 08:20:00 AM Scheduled Provider:OLGA PRAKASH PA-C Location:[facility] Appointment Type:URO Office Visit Appointment Date:08/04/2023 09:45:00 AM Scheduled Provider:Rajni Rouse MD Location:[facility] Appointment Type:URO Office Visit Diagnostic Tests Pending * Drug Screen Urine 05/17/23 Future Scheduled Tests Radiology* US Renal 06/10/22 [facility]03-29-2024 Evaluation + Plan noteExtracted from: Title:Discharge Note [...] Cannabinoid Hyperemesis Syndrome Nausea and Vomiting, Adult, Tuyf-ly-Apwe Extracted from: Title:Progress Note * Author:Miguel JOHNSON, Rosalia Smith Date:05/14/23 Impression and Plan This is a 33-year-old lady with past medical history of gastric sleeve surgery in July 2020, complicated by significant reflux switch to Tan-en-Y January 2022 at [facility], [facility] surgery February 2023 which reported [...] Orders Sbsq Hospital Care/Day Moderate 35 Minutes 65206 2. Intractable abdominal pain (R10.9: Unspecified abdominal [...] [facility] Care/Day Moderate 35 Minutes 74355 2. Intractable abdominal pain (R10.9: Unspecified abdominal [...] reflux switch to Tan-en-Y January 2022 at [facility], [facility] surgery February 2023 which reported helped [...] reflux switch to Tan-en-Y January 2022 at [facility], [facility] surgery February 2023 which reported [...] 2022 Author:Kuldip Arcos Jr, DO Date:05/12/23 Plan [place] [employer]esthesiologists (ASA) physical status classification: [...] Ordered: Initial Hospital Care/Day Moderate [address] in Status 2. Intractable abdominal pain [...] Appointment Date:05/19/2023 10:40:00 AM Scheduled Provider:Jaquan Paula Location:[facility] Appointment Type: Hospital Follow Up w/TCM Appointment Date:07/13/2023 08:20:00 AM Scheduled Provider:OLGA PRAKASH PA-C Location:[facility] Appointment Type:URO Office Visit Appointment Date:08/04/2023 09:45:00 AM Scheduled Provider:Rajni Rouse MD Location:[facility] Appointment Type:URO Office Visit Diagnostic Tests Pending * Copper Level 05/14/23 * HIV Screen 4th Generation wRfx 05/14/23 * Acute Hepatitis A B C Panel 05/14/23 Future Scheduled Tests Radiology* US Renal 06/10/22 [facility]03-29-2024 Hospital Discharge instructions Patient Education 05/14/2023 11:56:34 [...] as coffee and soda. Take and apply hjdn-hzg-ocsisuf and prescription medicines only as told by [...] provider. Document Revised: 06/01/2022 Document Reviewed: 06/01/2022 Appy Couple Patient Education 2022 Ping4. 05/14/2023 11:56:24 Nausea and Vomiting, Adult, Heqo-qm-Tjvb Nausea and Vomiting, Adult Nausea is feeling [...] fruit juice). ?Low-calorie sports drinks. Eat bland, rjha-fp-tuqbhs foods in small amounts as you are able, such as: ?Bananas. ?Applesauce. ?Rice. ?Low-fat (lean) meats. ?Scanlon. ?Crackers. Avoid drinking fluids that have a lot of sugar or caffeine in them. This includes energy drinks, sports drinks, and soda. Avoid alcohol. Avoid spicy or fatty foods. General instructions Take ydnk-ziq-egczlrr and prescription medicines only as told by your doctor. Drink enough fluid to keep your pee (urine) pale yellow. Wash your hands often with soap and water for at least 20 seconds. If you cannot use soap and water, use hand software release engineer. Make sure that everyone in your home [...] your doctor about eating and drinking. Take rnop-pdp-irnlezh and prescription medicines only as told by your doctor. Contact your doctor if your symptoms get worse or you have new symptoms. Keep all follow-up visits. This information is not intended to replace advice given to you by your health care provider. Make sure you discuss any questions you have with your health care provider. Document Revised: 08/08/2021 Document Reviewed: 08/08/2021 Appy Couple Patient Education 2022 Ping4. Follow Up Care 05/12/2023 09:23:09 With:Patient has [facility] Home Health in place Address:Unknown When: Unknown With:Jaquan Paula FAM, MED Address: [address] [place] [address] [facility] (1) When: Unknown With:Follow up with surgeon Address: When: Unknown Comments:Appointment has already been scheduled [facility]03-29-2024 [facility]:Result Comment: Electronically Signed By: Moncho Trejo DO.br\Date and Time Signed: 05/14/23 12:06 [id number] [facility]:Result Comment: Electronically Signed By: Moncho Trejo DO.br\Date and Time Signed: 05/12/23 12:59 [id number] Hospital Discharge instructions Patient Education 05/11/2023 16:46:23 Abdominal Pain, Adult, Wwhg-mg-Ueav Abdominal Pain, Adult Many things can cause belly (abdominal) pain. Most times, belly pain is not dangerous. Many cases of belly pain can be watched and treated at home. Sometimes, though, belly pain is serious. Your doctor will try to find the cause of your belly pain. Follow these instructions at home: Medicines Take fltl-bih-hepsoqb and prescription medicines only as told by [...] your belly pain for any changes. Take jcfw-koh-jnajnco and prescription medicines only as told by [...] provider. Document Revised: 06/12/2019 Document Reviewed: 06/12/2019 Appy Couple Patient Education 2022 Ping4. Follow Up Care 05/11/2023 11:48:15 With:Miguel JOHNSON, APRYL Bean, [facility] Address: [facility], [address] [phone] When:2 to 4 days Comments:Call today to schedule your follow upReturn to ED if symptoms worsen [facility]03-26-2024 Evaluation + Plan noteExtracted from: Title:ED Note [...] Date:07/13/2023 08:20:00 AM Scheduled Provider:OLGA PRAKASH PA-C Location:[facility] Appointment Type:URO Office Visit Appointment Date:08/04/2023 09:45:00 AM Scheduled Provider:Rajni Rouse MD Location:[facility] Appointment Type:URO Office Visit Future Scheduled Tests Radiology* US Renal 06/10/22 [facility]03-25-2024 Miscellaneous Notes* Telephone Encounter - Serena Neff - 05/10/2023 2:51 PM EDT Patient scheduled with Dr. Kat on 05/11. Serena Neff RN BSN Senior Technical Editor for Dr. Kat * Telephone Encounter - [...] by Dr. Kat. Serena Neff RN BSN Senior Technical Editor for Dr. Kat * Telephone Encounter - Dorita Manning - 05/10/2023 10:44 AM EDT Patients calling concerned about [place]. She has been in the ER 2 times in the last 4 days. She was told to speak to DR who originally put her on TPN to discuss getting back on it. CB# [phone] [facility] Hospital Discharge instructions Patient Education 05/09/2023 [...] Follow these instructions at home: Medicines Take oupc-bmg-rjvskxe and prescription medicines only as told by [...] Watch your condition for any changes. Take yuhp-muz-zzzjjxz and prescription medicines only as told by [...] provider. Document Revised: 03/22/2020 Document Reviewed: 06/12/2019 Appy Couple Patient Education 2022 Ping4. Follow Up Care 05/09/2023 11:38:04 With:Earnest Oakes Address: [facility], [facility] [address] [address] [phone] Business (1) When:05/12/2023 15:51:27 With:Jon Rivera Address: [facility] [place], [facility] [address] [address] [phone] Business (1) When:05/12/2023 15:51:00 With:Jaquan Morrow Address: [address] [place], [place] [phone] Business (1) When:05/12/2023 15:50:53 [facility]03-24-2024 Evaluation + Plan noteExtracted from: Title:ED Note [...] Date:07/13/2023 08:20:00 AM Scheduled Provider:OLGA PRAKASH PA-C Location:[facility] Appointment Type:URO Office Visit Appointment Date:08/04/2023 09:45:00 AM Scheduled Provider:Rajni Rouse MD Location:[facility] Appointment Type:URO Office Visit Future Scheduled Tests Radiology* US Renal 06/10/22 [facility]03-22-2024 Miscellaneous Notes* Telephone Encounter - Yvette Morgan - 05/07/2023 11:07 AM EDT Procedure canceled * Telephone Encounter - Santa Hart RN - 05/07/2023 10:47 AM EDT Patient is keeping 07/20/2023 Upper endoscopy appointment and wishes to cancel 05/14/2023 EGD appointment. Scheduling notified. documented in this encounterThe [facility] Hospital Discharge instructions Patient Education 05/06/2023 [...] Follow these instructions at home: Medicines Take ekbm-spn-bijsogk and prescription medicines only as told by [...] Watch your condition for any changes. Take euqw-aps-owtpmvk and prescription medicines only as told by [...] provider. Document Revised: 03/22/2020 Document Reviewed: 06/12/2019 Appy Couple Patient Education 2022 Ping4. Follow Up Care 05/06/2023 15:41:48 With:Follow-up with your surgeon at soon as possible, call the office tomorrow to schedule an appointment. Return to the ER with any new or worsening symptoms. Address:Unknown When: Unknown With:Jaquan Morrow Address:Unknown When:Within 3 Day(s) [facility]03-13-2024 History of Present illness Narrative* Kasie Avalos [...] race variable for the IDMS-Traceable creatinine methods. [email or web address]://jasn.asnjournals.org/content//ASN.[email or web address] Calcium 8.5 - 10.4 mg/dL 8.7 Albumin [...] the body of the stomach FINAL DIAGNOSIS [facility] STOMACH ANTRUM, BIOPSY: Erosive chronic active [...] healthy appearing mucosa. This was traversed. The bhqlw-sy-qtfmqmm limb was characterized by healthy appearing mucosa. [...] healthy appearing mucosa. This was traversed. The uwmpi-az-ystcymy limb was characterized by healthy appearing mucosa. The jejunojejunal anastomosis was characterized by healthy appearing mucosa. The examined jejunum was normal. Impression: - Normal esophagus. - Tan-en-Y gastrojejunostomy with gastrojejunal anastomosis characterized by healthy appearing mucosa. No ulceration or stenosis. - Normal examined jejunum. - No specimens collected. Upper GI SERIES 03/17/23 FINDINGS: Ems Coordinator images demonstrate postsurgical changes from previous Tan-en-Y [...] destructive bone lesions. CT ABD/PEL 12/06/22 ABDOMEN: Ems Coordinator (topogram) images: No additional findings. Images of [...] which included preparing to see the patient, dinf-ou-xrpz patient care, completing clinical documentation, obtaining and/or reviewing separately obtained history, performing a medically appropriate examination, counseling and educating the pat ient/family/caregiver, and ordering medications, tests, or procedures. Kasie Avalos MD April 22, 2023 2:06 PM documented in this encounterThe [facility]03-[facility] History of Present illness Narrative* Sherry [...] she connect with her bariatric surgeon at [facility]. I will follow-up with her in 2 weeks by telephone. documented in this encounterPremier Health Work Phone: 1(885) 615-971002-21-2024 [facility]Ohio[facility] History of Present illness Narrative* Deacon Kat MD - 04/07/2023 1:48 PM EST VIRTUAL VISIT PROGRESS NOTE This is a virtual visit using [employer] Zoom Video Visit. It required patient- provider interaction for the medical decision making as documented below. I have communicated my name and active licensure. The patient's identity and physical location wereverified at the time of this visit. Either the patient or their legal procurement representative has been informed of the risks [...] She had a recent EGD through the [facility] system which I was able to obtain [...] Deacon Kat MD documented in this encounterThe [facility]02-16-[facility]24 Hospital Discharge instructions Patient Education 04/02/2023 [...] Follow these instructions at home: Medicines Take owfv-doa-tnhhuwx and prescription medicines only as told by [...] provider. Document Revised: 04/17/2021 Document Reviewed: 04/17/2021 Appy Couple Patient Education 2022 Ping4. 04/02/2023 17:02:34 Abdominal Pain, Adult Abdominal Pain, [...] Follow these instructions at home: Medicines Take vddo-fsk-odaorga and prescription medicines only as told by [...] Watch your condition for any changes. Take xguk-txc-dgbigfx and prescription medicines only as told by [...] provider. Document Revised: 03/22/2020 Document Reviewed: 06/12/2019 Appy Couple Patient Education 2022 Ping4. Follow Up Care 04/02/2023 10:53:50 With:Jon Rivera Address: [address] [facility], [address] [phone] Business (1) When:04/05/2023 16:23:56 Comments:Make sure to follow-up with your primary doctor and your surgeon. Follow-up with Dr. Rivera for the GI. Return to the emergency room if your pain gets worse or any new symptoms. With:Jaquan Morrow Address:Unknown When:Within 3 Day(s) [facility]02-16-2024 Evaluation + Plan noteExtracted from: Title:ED Note Author:Jose Ramon Martinez, Ashutosh Arroyo te:04/02/23 1. Chest pain (R07.9: Chest pain, unspecified) 2. Abdominal pain (R10.9: Unspecified abdominal pain) Orders: dicyclomine, 20 mg = 2 cap(s), Oral, QID, # 20 cap(s), Refills(s) 0, Pharmacy: [facility] #[id number], 167, cm, 04/02/23 11:01:00 EST, Height/Length [...] nausea/vomiting, # 16 tab(s), Refills(s) 0, Pharmacy: [facility]/pharmacy #[id number], 167, cm, 04/02/23 11:01:00 EST, Height/Length [...] day(s), # 560 mL, Refills(s) 0, Pharmacy: [facility]/pharmacy #[id number], 167, cm, 04/02/23 11:01:00 EST, Height/Length [...] 09:45:00 AM Scheduled Provider:Nasim JOHNSON, Rajni Ballesteros Location:[facility] Appointment Type:URO Office Visit Future Scheduled Tests Radiology* US Renal 06/10/22 [facility]02-03-2024 Nurse Note* Stacie Blanco RN - 03/20/2023 4:41 PM EST Patient discharged home to care of self and . Patient transported to front entrance via wheelchair. No injuries, bleeding or distress noted. [facility]02-03-2024 Nurse Note* Stacie Blanco RN - 03/20/2023 [...] - 03/18/2023 2:50 PM EST Ronnie foster, territory manager general sales into see pt * Andie Lugo RN - 03/18/2023 7:27 AM EST Assumed care of pt, pt resting quietly in bed, ng to liws , will monitor * Cathy Madera RN - 03/17/2023 6:05 PM EST NG tube re inserted per order. Patient tolerated well. No complications. This nurse requested orderfor xray for placement of NG tube. Order received. Waiting on agriscience technology instructor to verify placement per order. Will continue [...] per to re insert NG tube and offset duplicating machine operator to low suction. Will re attempt with patients consent. * Cathy Madera RN - 03/17/2023 12:06 PM EST Patient transported to Xray for placement of NG. Patient off unit. * Cathy Madera RN - 03/17/2023 11:44 AM EST This nurse notified diazo technician that patient had NG tube placed and needed Xray for placement verification. This nurse messaged Rosa YUN to notify her that NG tube was placed and needed separate order for NG tube placement per diazo technician. Order received. Will continue to monitor [...] 5 MG IV. This nurse notified Lizz Amusat SPEECH PATHOLOGY SUPERVISOR-OFFSHORE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 that patient received Valium 5 MG PO [...] to ensure patient safety. documented in this encounterPremier Health Work Phone: 1(684) 563-458002-03-2024 Nurse Note* Stacie Blanco RN - 03/20/2023 4:01 PM EST Provided/explained discharge instructions and summary. Provided opportunity for questions and discussion. No complaints or concerns communicated. [facility] Work Phone: 1(141) 746-301802-03-2024 History of Present illness Narrative* Nathalie Tyler RN - 03/20/2023 3:35 PM EST Patient is medically ready for discharge. Per previous director of critical care, plan for home with home health care. Message to provider that external home care referral is needed. UPDATE 1549: Discharging provider indicates no continued skilled needs for home care. Per bedside nurse May, patient is in agreement that she no longer needs home health care services. Referral to [facility] updated and closed. Patient will discharge no with no reported skilled needs. * Lizz Brunson, SPEECH PATHOLOGY SUPERVISOR-OFFSHORE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 - 03/20/2023 11:40 AM EST Abbey Garcia [...] Tomasa Keyes RN 03/19/2023 1431 Procedure Location [address] [id number] Referring Provider Generic Provider [place] No address on file Procedure Provider No [...] 03/17/2023 done at 2:05 p.m. ACCESSION NUMBER(S): [id number] ORDERING CLINICIAN: TIFFANIE MENDEZ TECHNIQUE: AP erect view of the chest FINDINGS: The nasogastric tube has not ch anged in placement with the tip seen within the proximal thoracic esophagus. Heart and mediastinum are normally visualized. Lungs are clear. Distal tip of nasogastric tube in proximal thoracic esophagus just above the aortic arch. Signed by: Nya Ahmadi 03/17/2023 8:19 PM Dictation workstation: [id number] FL upper GI w double contrast w small bowel follow through Result Date: 03/17/2023 Interpreted By: Corie Garza, STUDY: FL UPPER GI W DOUBLE CONTRAST W SMALL BOWEL FOLLOW THROUGH; 03/17/2023 4:40 pm INDICATION: Signs/Symptoms:abdominal pain. COMPARISON: None. ACCESSION NUMBER(S): [id number] ORDERING CLINICIAN: TIFFANIE MENDEZ TECHNIQUE: Multiple fluoroscopic spot images were obtained during a single contrast upper GI with KUB. Total fluoroscopy time: 1 minute 32 seconds Radiation exposure (Reference Air Kerma): 99.36 mGy Images: 2 spot images 7 series and 2 delayed AP viewsof the abdomen FINDINGS: Ems Coordinator images demonstrate postsurgical changes from previous Tan-en-Y [...] Corie Garza 03/17/2023 5:00 PM Dictation workstation: [id number] XR chest 1 view Result Date: 03/17/2023 Interpreted By: Corie Garza, STUDY: XR CHEST 1 VIEW; 03/17/2023 12:41 pm INDICATION: Signs/Symptoms:Status post NG tube placement. COMPARISON: None available ACCESSION NUMBER(S): [id number] ORDERING CLINICIAN: TIFFANIE MENDEZ FINDINGS: RESULT: Nasogastric [...] Corie Garza 03/17/2023 4:19 PM Dictation workstation: [id number] CT abdomen pelvis w IV contrast Result Date: 03/16/2023 Interpreted By: Corie Garza, STUDY: CT ABDOMEN PELVIS W IV CONTRAST; 03/16/2023 5:27 pm INDICATION: Signs/Symptoms:abdominal pain - with oral and IV contrast. COMPARISON: None.. ACCESSION NUMBER(S): [id number] ORDERING CLINICIAN: TIFFANIE MENDEZ TECHNIQUE: Oral contrast [...] Corie Garza 03/16/2023 5:46 PM Dictation workstation: [id number] XR chest 1 view Result Date: 03/06/2023 Interpreted By: Sara Zarate, STUDY: XR CHEST 1 VIEW; 03/06/2023 7:32 am INDICATION: Signs/Symptoms:post op COMPARISON: None ACCESSION NUMBER(S): [id number] ORDERING CLINICIAN: JASON FOSTER TECHNIQUE: Frontal and [...] Sara Zarate 03/06/2023 1:48 PM Dictation workstation: [id number] XR chest 1 view Result Date: 03/05/2023 Interpreted By: Baldomero Hendrickson, STUDY: XR CHEST 1 VIEW; 03/05/2023 3:11 pm INDICATION: CLINICAL INFORMATION: Signs/Symptoms:NG tube placement confirmation. COMPARISON: 03/05/2019 at 745 hours ACCESSION NUMBER(S): [id number] ORDERING CLINICIAN: DESMOND TIRADO TECHNIQUE: Portable chest [...] Baldomero Hendrickson 03/05/2023 3:31 PM Dictation workstation: [id number] XR chest 1 view Result Date: 03/05/2023 Interpreted By: Nya Ahmadi, STUDY: XR CHEST 1 VIEW 03/05/2023 7:51 am INDICATION: Signs/Symptoms:confirm line placement COMPARISON: None available. ACCESSION NUMBER(S): [id number] ORDERING CLINICIAN: SERENA GEORGE TECHNIQUE: AP erect view of the chest FINDINGS: Right arm PICC line terminates in the SVC. There is no pneumothorax. The heart, mediastinum, and lungs are normally visualized. Right arm PICC line terminating in SVC without pneumothorax. No acute cardiopulmonary disease. Signed by: Nya Ahmadi 03/05/2023 7:54 AM Dictation workstation: [id number] Assessment/Plan Principal Problem: Abdominal pain NV, Epigastric [...] Tomasa Keyes RN 03/19/2023 1431 Procedure Location [address] [address] Referring Provider Generic Provider [place] No address on file Procedure Provider No name on file XR chest 1 view Result Date: 03/17/2023 Interpreted By: Nya Ahmadi, STUDY: XR CHEST 1 VIEW 03/17/2023 7:09 pm INDICATION: Signs/Symptoms:S/p NG placement COMPARISON: 03/17/2023 done at 2:05 p.m. ACCESSION NUMBER(S): [id number] ORDERING CLINICIAN: TIFFANIE MENDEZ TECHNIQUE: AP erect view of the chest FINDINGS: The nasogastric tube has not ch anged in placement with the tip seen within the proximal thoracic esophagus. Heart and mediastinum are normally visualized. Lungs are clear. Distal tip of nasogastric tube in proximal thoracic esophagus just above the aortic arch. Signed by: Nya Ahmadi 03/17/2023 8:19 PM Dictation workstation: [id number] FL upper GI w double contrast w small bowel follow through Result Date: 03/17/2023 Interpreted By: Corie Garza, STUDY: FL UPPER GI W DOUBLE CONTRAST W SMALL BOWEL FOLLOW THROUGH; 03/17/2023 4:40 pm INDICATION: Signs/Symptoms:abdominal pain. COMPARISON: None. ACCESSION NUMBER(S): [id number] ORDERING CLINICIAN: TIFFANIE MENDEZ TECHNIQUE: Multiple fluoroscopic spot images were obtained during a single contrast upper GI with KUB. Total fluoroscopy time: 1 minute 32 seconds Radiation exposure (Reference Air Kerma): 99.36 mGy Images: 2 spot images 7 series and 2 delayed AP viewsof the abdomen FINDINGS: Ems Coordinator images demonstrate postsurgical changes from previous Tan-en-Y [...] Corie Garza 03/17/2023 5:00 PM Dictation workstation: [id number] XR chest 1 view Result Date: 03/17/2023 Interpreted By: Corie Garza, STUDY: XR CHEST 1 VIEW; 03/17/2023 12:41 pm INDICATION: Signs/Symptoms:Status post NG tube placement. COMPARISON: None available ACCESSION NUMBER(S): [id number] ORDERING CLINICIAN: TIFFANIE MENEDZ FINDINGS: RESULT: Nasogastric tube is noted with [...] Corie Garza 03/17/2023 4:19 PM Dictation workstation: [id number] CT abdomen pelvis w IV contrast Result Date: 03/16/2023 Interpreted By: Corie Garza, STUDY: CT ABDOMEN PELVIS W IV CONTRAST; 03/16/2023 5:27 pm INDICATION: Signs/Symptoms:abdominal pain - with oral and IV contrast. COMPARISON: None.. ACCESSION NUMBER(S): [id number] ORDERING CLINICIAN: TIFFANIE MENDEZ TECHNIQUE: Oral contrast [...] Corie Garza 03/16/2023 5:46 PM Dictation workstation: [id number] XR chest 1 view Result Date: 03/06/2023 Interpreted By: Sara Zarate, STUDY: XR CHEST 1 VIEW; 03/06/2023 7:32 am INDICATION: Signs/Symptoms:post op COMPARISON: None ACCESSION NUMBER(S): [id number] ORDERING CLINICIAN: JASON FOSTER TECHNIQUE: Frontal and [...] Sara Zarate 03/06/2023 1:48 PM Dictation workstation: [id number] XR chest 1 view Result Date: 03/05/2023 Interpreted By: Baldomero Hendrickson, STUDY: XR CHEST 1 VIEW; 03/05/2023 3:11 pm INDICATION: CLINICAL INFORMATION: Signs/Symptoms:NG tube placement confirmation. COMPARISON: 03/05/2019 at 745 hours ACCESSION NUMBER(S): [id number] ORDERING CLINICIAN: DESMOND TIRADO TECHNIQUE: Portable chest [...] Baldomero Hendrickson 03/05/2023 3:31 PM Dictation workstation: [id number] XR chest 1 view Result Date: 03/05/2023 Interpreted By: Nya Ahmadi, STUDY: XR CHEST 1 VIEW 03/05/2023 7:51 am INDICATION: Signs/Symptoms:confirm line placement COMPARISON: None available. ACCESSION NUMBER(S): [id number] ORDERING CLINICIAN: SERENA GEORGE TECHNIQUE: AP erect view of the chest FINDINGS: Right arm PICC line terminates in the SVC. There is no pneumothorax. The heart, mediastinum, and lungs are normally visualized. Right arm PICC line terminating in SVC without pneumothorax. No acute cardiopulmonary disease. Signed by: Nya Ahmadi 03/05/2023 7:54 AM Dictation workstation: [id number] Assessment/Plan -Abdominal pain/nausea -Median arcuate ligament syndrome, [...] deferto her bariatric surgeon, Dr. Morel, at [place]. Will sign off. Kurt Matos MD * Anam Davila RN - 03/19/2023 3:11 PM EST Abbey Garcia is a 32 y.o. female on day 3 of admission presenting with Abdominal pain. Met with patient at bedside. Patient states she has been active with [facility] in [place] . Patient would like to continue HHC with [facility]. Referral was sent. EGD scheduled today. Has NG in place. [facility] is able to accept for STEF. NG discontinued. On clear liquids. WILL NEED AND EXTERNAL REFERRAL FOR RESUMPTION OF HHC. Anam Davila RN * Shelley Nash APRN-OFFSHORE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 - 03/19/2023 12:32 PM EST Abbey Garcia [...] her usual [facility] surgeons after DC. 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 MVI, B12. I spent 15 minutes in [...] 03/17/2023 done at 2:05 p.m. ACCESSION NUMBER(S): [id number] ORDERING CLINICIAN: TIFFANIE MENDEZ TECHNIQUE: AP erect view of the chest FINDINGS: The nasogastric tube has not changed in placement with the tip seen within the proximal thoracic esophagus. Heart and mediastinum are normally visualized. Lungs are clear. Impression: Distal tip of nasogastric tube in proximal thoracic esophagus just above the aortic arch. Signed by: Nya Ahmadi 03/17/2023 8:19 PM Dictation workstation: [id number] FL upper GI w double contrast w small bowel follow through Narrative: Interpreted By: Corie Garza, STUDY: FL UPPER GI W DOUBLE CONTRAST W SMALL BOWEL FOLLOW THROUGH; 03/17/2023 4:40 pm INDICATION: Signs/Symptoms:abdominal pain. COMPARISON: None. ACCESSION NUMBER(S): [id number] ORDERING CLINICIAN: TIFFANIE MENDEZ TECHNIQUE: Multiple fluoroscopic spot images were obtained during a single contrast upper GI with KUB. Total fluoroscopy time: 1 minute 32 seconds Radiation exposure (Reference Air Kerma): 99.36 mGy Images: 2 spot images 7 series and 2 delayed AP views of the abdomen FINDINGS: Ems Coordinator images demonstrate postsurgical changes from previous Tan-en-Y [...] Corie Garza 03/17/2023 5:00 PM Dictation workstation: [id number] XR chest 1 view Narrative: Interpreted By: Corie Garza, STUDY: XR CHEST 1 VIEW; 03/17/2023 12:41 pm INDICATION: Signs/Symptoms:Status post NG tube placement. COMPARISON: None available ACCESSION NUMBER(S): [id number] ORDERING CLINICIAN: ITFFANIE MENDEZ FINDINGS: RESULT: Nasogastric tube is noted [...] Corie Garza 03/17/2023 4:19 PM Dictation workstation: [id number] Physical Exam Vitals and nursing note reviewed. [...] her usual [facility] surgeons after DC. 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 I spent 15 minutes in the professional and overall care of this patient. Shelley Nash, SLIM-OFFSHORE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 * Jason Foster APRN-BETH - 03/18/2023 3:11 [...] Marino with [facility]a, prescriptions filled through [facility] in [place]. Uncertain if pt will have dc needs. Her last admit she went home with [facility]. TCC to follow ongoing medical workup. Safe dc plan not secured-TCC to follow Sabina SPAULDING, REGIONAL OPERATIONS DIRECTOR * Lizz Brunson APRN-BETH - 03/18/2023 10:57 AM EST Abbey Garcia [...] 03/17/2023 done at 2:05 p.m. ACCESSION NUMBER(S): [id number] ORDERING CLINICIAN: TIFFANIE MENDEZ TECHNIQUE: AP erect view of the chest FINDINGS: The nasogastric tube has not changed in placement with the tip seen within the proximal thoracic esophagus. Heart and mediastinum are normally visualized. Lungs are clear. Impression: Distal tip of nasogastric tube in proximal thoracic esophagus just above the aortic arch. Signed by: yNa Ahmadi 03/17/2023 8:19 PM Dictation workstation: [id number] FL upper GI w double contrast w small bowel follow through Narrative: Interpreted By: Corie Garza, STUDY: FL UPPER GI W DOUBLE CONTRAST W SMALL BOWEL FOLLOW THROUGH; 03/17/2023 4:40 pm INDICATION: Signs/Symptoms:abdominal pain. COMPARISON: None. ACCESSION NUMBER(S): [id number] ORDERING CLINICIAN: TIFFANIE MENDEZ TECHNIQUE: Multiple fluoroscopic spot images were obtained during a single contrast upper GI with KUB. Total fluoroscopy time: 1 minute 32 seconds Radiation exposure (Reference Air Kerma): 99.36 mGy Images: 2 spot images 7 series and 2 delayed AP views of the abdomen FINDINGS: Ems Coordinator images demonstrate postsurgical changes from previous Tan-en-Y [...] Corie Garza 03/17/2023 5:00 PM Dictation workstation: [id number] XR chest 1 view Narrative: Interpreted By: Corie Garza, STUDY: XR CHEST 1 VIEW; 03/17/2023 12:41 pm INDICATION: Signs/Symptoms:Status post NG tube placement. COMPARISON: None available ACCESSION NUMBER(S): [id number] ORDERING CLINICIAN: TIFFANIE MENDEZ FINDINGS: RESULT: Nasogastric [...] Corie Garza 03/17/2023 4:19 PM Dictation workstation: [id number] Physical Exam Vitals and nursing note reviewed. [...] 03/17/2023 done at 2:05 p.m. ACCESSION NUMBER(S): [id number] ORDERING CLINICIAN: TIFFANIE MENDEZ TECHNIQUE: AP erect view of the chest FINDINGS: The nasogastric tube has not ch anged in placement with the tip seen within the proximal thoracic esophagus. Heart and mediastinum are normally visualized. Lungs are clear. Distal tip of nasogastric tube in proximal thoracic esophagus just above the aortic arch. Signed by: Nya Ahmadi 03/17/2023 8:19 PM Dictation workstation: [id number] FL upper GI w double contrast w small bowel follow through Result Date: 03/17/2023 Interpreted By: Corie Garza, STUDY: FL UPPER GI W DOUBLE CONTRAST W SMALL BOWEL FOLLOW THROUGH; 03/17/2023 4:40 pm INDICATION: Signs/Symptoms:abdominal pain. COMPARISON: None. ACCESSION NUMBER(S): [id number] ORDERING CLINICIAN: TIFFANIE MENDEZ TECHNIQUE: Multiple fluoroscopic spot images were obtained during a single contrast upper GI with KUB. Total fluoroscopy time: 1 minute 32 seconds Radiation exposure (Reference Air Kerma): 99.36 mGy Images: 2 spot images 7 series and 2 delayed AP viewsof the abdomen FINDINGS: Ems Coordinator images demonstrate postsurgical changes from previous Tan-en-Y [...] Corie Garza 03/17/2023 5:00 PM Dictation workstation: [id number] XR chest 1 view Result Date: 03/17/2023 Interpreted By: Corie Garza, STUDY: XR CHEST 1 VIEW; 03/17/2023 12:41 pm INDICATION: Signs/Symptoms:Status post NG tube placement. COMPARISON: None available ACCESSION NUMBER(S): [id number] ORDERING CLINICIAN: TIFFANIE MENDEZ FINDINGS: RESULT: Nasogastric [...] Corie Garza 03/17/2023 4:19 PM Dictation workstation: [id number] CT abdomen pelvis w IV contrast Result Date: 03/16/2023 Interpreted By: Corie Garza, STUDY: CT ABDOMEN PELVIS W IV CONTRAST; 03/16/2023 5:27 pm INDICATION: Signs/Symptoms:abdominal pain - with oral and IV contrast. COMPARISON: None.. ACCESSION NUMBER(S): [id number] ORDERING CLINICIAN: TIFFANIE MENDEZ TECHNIQUE: Oral contrast [...] Corie Garza 03/16/2023 5:46 PM Dictation workstation: [id number] Assessment/Plan Abdominal pain, nausea, chronic intolerance to [...] 03/17/2023 done at 2:05 p.m. ACCESSION NUMBER(S): [id number] ORDERING CLINICIAN: TIFFANIE MENDEZ TECHNIQUE: AP erect view of the chest FINDINGS: The nasogastric tube has not ch anged in placement with the tip seen within the proximal thoracic esophagus. Heart and mediastinum are normally visualized. Lungs are clear. Distal tip of nasogastric tube in proximal thoracic esophagus just above the aortic arch. Signed by: Nya Ahmadi 03/17/2023 8:19 PM Dictation workstation: [id number] FL upper GI w double contrast w small bowel follow through Result Date: 03/17/2023 Interpreted By: Corie Garza, STUDY: FL UPPER GI W DOUBLE CONTRAST W SMALL BOWEL FOLLOW THROUGH; 03/17/2023 4:40 pm INDICATION: Signs/Symptoms:abdominal pain. COMPARISON: None. ACCESSION NUMBER(S): [id number] ORDERING CLINICIAN: TIFFANIE MENDEZ TECHNIQUE: Multiple fluoroscopic spot images were obtained during a single contrast upper GI with KUB. Total fluoroscopy time: 1 minute 32 seconds Radiation exposure (Reference Air Kerma): 99.36 mGy Images: 2 spot images 7 series and 2 delayed AP viewsof the abdomen FINDINGS: Ems Coordinator images demonstrate postsurgical changes from previous Tan-en-Y [...] Corie Garza 03/17/2023 5:00 PM Dictation workstation: [id number] XR chest 1 view Result Date: 03/17/2023 Interpreted By: Corie Garza, STUDY: XR CHEST 1 VIEW; 03/17/2023 12:41 pm INDICATION: Signs/Symptoms:Status post NG tube placement. COMPARISON: None available ACCESSION NUMBER(S): [id number] ORDERING CLINICIAN: TIFFANIE MENDEZ FINDINGS: RESULT: Nasogastric [...] Corie Garza 03/17/2023 4:19 PM Dictation workstation: [id number] CT abdomen pelvis w IV contrast Result Date: 03/16/2023 Interpreted By: Corie Garza, STUDY: CT ABDOMEN PELVIS W IV CONTRAST; 03/16/2023 5:27 pm INDICATION: Signs/Symptoms:abdominal pain - with oral and IV contrast. COMPARISON: None.. ACCESSION NUMBER(S): [id number] ORDERING CLINICIAN: TIFFANIE MENDEZ TECHNIQUE: Oral contrast [...] Corie Garza 03/16/2023 5:46 PM Dictation workstation: [id number] XR chest 1 view Result Date: 03/06/2023 Interpreted By: Sara Zarate, STUDY: XR CHEST 1 VIEW; 03/06/2023 7:32 am INDICATION: Signs/Symptoms:post op COMPARISON: None ACCESSION NUMBER(S): [id number] ORDERING CLINICIAN: JASON FOSTER TECHNIQUE: Frontal and [...] Sara Zarate 03/06/2023 1:48 PM Dictation workstation: [id number] XR chest 1 view Result Date: 03/05/2023 Interpreted By: Baldomero Hendrickson, STUDY: XR CHEST 1 VIEW; 03/05/2023 3:11 pm INDICATION: CLINICAL INFORMATION: Signs/Symptoms:NG tube placement confirmation. COMPARISON: 03/05/2019 at 745 hours ACCESSION NUMBER(S): [id number] ORDERING CLINICIAN: DESMOND TIRADO TECHNIQUE: Portable chest [...] Baldomero Hendrickson 03/05/2023 3:31 PM Dictation workstation: [id number] XR chest 1 view Result Date: 03/05/2023 Interpreted By: Nya Ahmadi, STUDY: XR CHEST 1 VIEW 03/05/2023 7:51 am INDICATION: Signs/Symptoms:confirm line placement COMPARISON: None available. ACCESSION NUMBER(S): [id number] ORDERING CLINICIAN: SERENA GEORGE TECHNIQUE: AP erect view of the chest FINDINGS: Right arm PICC line terminates in the SVC. There is no pneumothorax. The heart, mediastinum, and lungs are normally visualized. Right arm PICC line terminating in SVC without pneumothorax. No acute cardiopulmonary disease. Signed by: Nya Ahmadi 03/05/2023 7:54 AM Dictation workstation: [id number] Assessment/Plan Principal Problem: Abdominal pain NV, Epigastric [...] -Increase PPI to twice daily Deepika Roy APRN-OFFSHORE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 Associated attestation - Yani Wong MD - [...] and IV contrast. COMPARISON: None.. ACCESSION NUMBER(S): [id number] ORDERING CLINICIAN: TIFFANIE MENDEZ TECHNIQUE: Oral contrast [...] Corie Garza 03/16/2023 5:46 PM Dictation workstation: [id number] Physical Exam Vitals and nursing note reviewed. [...] in her local emergency room out in [place]. She was discharged after her nausea was relieved last night but this nausea recurred and she was transferred here. I suspect given adequate pain control and control of her nausea that once the inflammation of her surgery resolves she will feel much better. Pancreatitis and bowel ischemia have been ruled out through lab testing and noncontrast CT done yesterday in [place]. I am going to get a CT scan with IV andoral contrast today and start IV fluids and antiemetics as well as analgesics. Unless she starts taking p.o.'s well I will likely place a feeding tube and start enteral feedings during this hospitalization. She will be getting a gastroenterology consultation as well as a foregut surgery consultation. documented in this [facility] Work Phone: 1(379) 155-126602-03-2024 Hospital Discharge instructions* Discharge Instructions* Jason Foster APRN-OFFSH[employer]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 - 03/20/2023 3:21 PM EST What to [...] weeks documented in this [facility] Work Phone: 1(412) 411-142102-02-2024 Plan of care note* Care Plan - [...] pain meds throughout the shift Outcome: Progressing [facility]02-02-2024 Miscellaneous Notes* Care Plan - Nathalie Campos [...] of abdominal pain with considerable notes from [facility], and has a history gastric bypass, cholecystectomy, sphincterectomy, and recent median arcuate ligament release on March 05 with vascular surgery. Patient [place] the [place] [facility] [place] [facility] [place] abdominal [place] and sent home, [...] issue which will be best done at [facility] either as inpatient or outpatient, where she has ongoing work, or is a postoperative situation that has been discussed multiple times with the primary operating service (and I have discussed with Tiffanie Mendez CNP with their service and there appears to be a good plan for imaging studies), and can ba admitted by their service). documented in this [facility] Work Phone: 1(428) 243-425702-02-2024 Plan of care note* Care Plan - [...] include. Recommendations to address these barriers include. [facility]02-01-2024 Plan of care note* Care Plan [...] pain meds throughout the shift Outcome: Progressing [facility] Work Phone: 1(944) 276-618502-01-2024 Nurse Note* Andie Lugo RN - 03/18/2023 4:47 PM EST Pt resting quietly in bed, no distres noted [facility]02-01-2024 Nurse Note* Andie Lugo RN - 03/18/2023 3:17 PM EST Pt given IS and instructed how to use, pt verbalized understanding [facility] Work Phone: 1(336) 537-957402-01-2024 Nurse Note* Andie Lugo RN - 03/18/2023 2:50 PM EST Ronnie foster cnp into see pt [facility] Work Phone: 1(369) 484-474302-01-2024 Consult note* Nabila Moore RDN, SALVADOR - [...] 650 mg, rectal, q4h PRN, Tiffanie Mendez, SPEECH PATHOLOGY SUPERVISOR-OFFSHORE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 albuterol 2.5 mg /3 mL (0.083 %) [...] PRN, JAMA Judd, 4 mg at 03/17/23 1955 oxyCODONE-acetaminophen (Percocet) 5-325 mg per tablet 1 [...] Energy Needs Total Energy Estimated Needs (kCal): (6153-8277 kcals) Total Estimated Energy Need per Day (kCal/kg): (25-30 kcals/kg) Method for Estimating Needs: adjusted IBW Estimated Protein Needs Total Protein Estimated Needs (g): (68-81g Protein) Total Protein Estimated Needs (g/kg): (1-1.2 g/kg) Method for Estimating Needs: adjusted IBW Estimated Fluid Needs Total Fluid Estimated Needs (mL): (1072-8057 mL fluid) Method for Estimating Needs: 1 [...] Prescription: Individualized Nutrition Prescription Provided for : 3477-2928 kcals, 68-81g Protein, 5651-7376 mL fluid, provided via PO/NG, once diet advanced. Nutrition Interventions: Food and/or Nutrient Delivery Interventions Interventions: Enteral intake Enteral Intake: Modify composition of enteral nutrition, Modify rate of enteral nutrition Goal: When able to initiate Tube feeding, recommend Osmolite 1.5 @ goal rate of 45 mL/hr to [id number] kcals, 68g Protein, and 823 mL free [...] Needed?: 3-5 days Follow up Comment: 03/22/23 [facility]02-01-2024 Consult note* Nabila Moore RDN, LD - [...] injection 100 mg, 100 mg, intravenous, Daily, Krut Nguyen MD, 100 mg at 03/18/23 0811 Dietary Orders (From admission, onward) Start Ordered 03/16/23 1508 NPO Diet; Effective now Diet effective now 03/16/23 1509 Estimated Needs: Estimated Energy Needs Total Energy Estimated Needs (kCal): (3892-4566 kcals) Total Estimated Energy Need per Day (kCal/kg): (25-30 kcals/kg) Method for Estimating Needs: adjusted IBW Estimated Protein Needs Total Protein Estimated Needs (g): (68-81g Protein) Total Protein Estimated Needs (g/kg): (1-1.2 g/kg) Method for Estimating Needs: adjusted IBW Estimated Fluid Needs Total Fluid Estimated Needs (mL): (9176-9761 mL fluid) Method for Estimating Needs: 1 [...] Prescription: Individualized Nutrition Prescription Provided for : 1216-3324 kcals, 68-81g Protein, 1940-2592 mL fluid, provided via PO/NG, once diet advanced. Nutrition Interventions: Food and/or Nutrient Delivery Interventions Interventions: Enteral intake Enteral Intake: Modify composition of enteral nutrition, Modify rate of enteral nutrition Goal: When able to initiate Tube feeding, recommend Osmolite 1.5 @ goal rate of 45 mL/hr to [id number] kcals, 68g Protein, and 823 mL free [...] with liver biopsy in April 2020 at [facility] in evaluation of her chronic abdominal pain and intermittent food intolerance. She had a vertical sleeve gastrectomy at [facility] on September 03, 2020 for morbid obesity. She had a diagnostic laparoscopy on March 20, 2021 at [facility] for chronic pain thought to be secondary to an abdominal wall hernia. No hernia was seen at laparoscopy. She complained of gastroesophageal reflux disease and had her vertical sleeve gastrectomy converted to Tan-en-Y gastric bypass at [facility] on January 29, 2022. On March 06, 2022 she had an upper endoscopy at [facility] for epigastric abdominal pain. Her gastrojejunostomy was congested, edematous, with erosions and friable mucosa. The anastomosis was dilated and she was discharged on twice daily PPI. She had an upper endoscopy at [facility] onJune 23, 2022 for epigastric pain. At that time her gastrojejunostomy appeared normal. She continued to complain of abdominal pain and had an upper endoscopy at the [facility] on October 27, 2022. She was found to have food in her stomach and jejunum. There was no evidence of gastrojejunal ulcer. On November 11, 2022 she had laparoscopic closure of internal hernia at the jejunojejunostomy and ERCP through her gastric remnant for her abdominal pain. She was hospitalized at the [facility] on December 06, 2022 for [...] by laparotomy on March 05, 2023 at [facility]. She was discharged to home [...] medical history of MARSHAL (acute kidney injury) ([facility]/HCC), Autoimmune disorder ([facility]/HCC), Bipolar disorder (CMS/HCC), BPH (benign prostatic hyperplasia), Cerebral aneurysm, Cervical cancer ([facility]/HCC), Cervical disc disease, Chronic kidney disease, CKD (chronic kidney disease), Cognitivedecline, Crohn's disease (CMS/HCC), Dementia ([facility]/HCC), Dysphagia, Endometrial cancer (CMS/HCC), Esophageal cancer (CMS/HCC), Esophageal disease, ESRD (end stage renal disease) ([facility]), Fibromyalgia, primary, Fractures, Gastric cancer ([facility]/HCC), Gender dysphoria, GI (gastrointestinal bleed), Hemodialysis status ([facility]/HCC), Hernia, internal, History of peritoneal dialysis, HIV disease (CMS/HCC), Immunocompromised ([facility]/HCC), Liver disease, Lumbar disc disease, Mastocytosis, MS (multiple sclerosis) (CMS/HCC), Muscular dystrophy ([facility]/HCC), Myasthenia gravis ([facility]/HCC), Neuromuscular disorder (CMS/HCC), Ovarian cancer ([facility]/HCC), Pancreatitis, Peptic ulcer disease, Prematurity, PTSD (post-traumatic stress disorder), Schizophrenia ([facility]/HCC), Seizure disorder ([facility]/HCC), Spinal stenosis, Substanceaddiction ([facility]/HCC), Syncope, TIA (transient ischemic attack), Ulcerative colitis (CMS/HCC), Urinary tract infection, Uterine cancer ([facility]/HCC), or Vertigo. Surgical History She has [...] Hypertension Mother Jessica Artino Cancer Maternal Grandfather Danyell Kraus COPD Maternal Grandfather Danyell Kraus Heart disease Maternal Grandfather Danyell Kraus Kidney disease Maternal Grandfather Danyell Kraus Hypertension Maternal Grandmother Grandpa Anesthesia problems [...] INDICATION: Signs/Symptoms:abdominal pain. COMPARISON: None. ACCESSION NUMBER(S): [id number] ORDERING CLINICIAN: TIFFANIE MENDEZ TECHNIQUE: Multiple fluoroscopic spot images were obtained during a single contrast upper GI with KUB. Total fluoroscopy time: 1 minute 32 seconds Radiation exposure (Reference Air Kerma): 99.36 mGy Images: 2 spot images 7 series and 2 delayed AP views of the abdomen FINDINGS: Ems Coordinator images demonstrate postsurgical changes from previous Tan-en-Y [...] Corie Garza 03/17/2023 5:00 PM Dictation workstation: [id number] Latest Reference Range & Units 03/17/23 07:04 [...] Kurt Matos MD * [place] Mercedes Jansen, SPEECH PATHOLOGY SUPERVISOR-OFF[employer]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 - 03/17/2023 10:29 AM EST Consults Reason [...] Irritable bowel syndrome, Median arcuate ligament syndrome ([facility]/HCC), PCOS (polycystic ovarian syndrome), PONV (postoperative nausea and vomiting), PUD (peptic ulcer disease), and Shortness of breath. She has no past medical history of MARSHAL (acute kidney injury) ([facility]), Autoimmune disorder ([facility]), Bipolar disorder ([facility]), BPH (benign prostatic hyperplasia), Cerebral aneurysm, Cervical cancer ([facility]), Cervical disc disease, Chronic kidney disease, CKD (chronic kidney disease), Cognitivedecline, Crohn's disease ([facility]), Dementia ([facility]), Dysphagia, Endometrial cancer ([facility]), Esophageal cancer ([facility]), Esophageal disease, ESRD (end stage renal disease) ([facility]), Fibromyalgia, primary, Fractures, Gastric cancer ([facility]), Gender dysphoria, GI (gastrointestinal bleed), Hemodialysis status ([facility]), Hernia, internal, History of peritoneal dialysis, HIV disease ([facility]), Immunocompromised ([facility]), Liver disease, Lumbar disc disease, Mastocytosis, MS (multiple sclerosis) ([facility]), Muscular dystrophy ([facility]), Myasthenia gravis ([facility]), Neuromuscular disorder ([facility]), Ovarian cancer ([facility]), Pancreatitis, Peptic ulcer disease, Prematurity, PTSD (post-traumatic stress disorder), Schizophrenia ([facility]), Seizure disorder ([facility]), Spinal stenosis, Substanceaddiction ([facility]), Syncope, TIA (transient ischemic attack), Ulcerative colitis ([facility]), Urinary tract infection, Uterine cancer ([facility]), or Vertigo. Surgical History She [...] Hypertension Mother Jessica Artino Cancer Maternal Grandfather Danyell Kraus COPD Maternal Grandfather Danyell Kraus Heart disease Maternal Grandfather Danyell Kraus Kidney disease Maternal Grandfather Danyell Kraus Hypertension Maternal Grandmother Grandpa Anesthesia problems [...] and IV contrast. COMPARISON: None.. ACCESSION NUMBER(S): [id number] ORDERING CLINICIAN: TIFFANIE MENDEZ TECHNIQUE: Oral contrast [...] 2.0 cm Bile Ducts: Normal caliber. Gallbladder: Nacne rgically absent Pancreas: Unremarkable. Spleen: Unremarkable. Adrenals: [...] Corie Garza 03/16/2023 5:46 PM Dictation workstation: [id number] XR chest 1 view Result Date: 03/06/2023 Interpreted By: Sara Zarate, STUDY: XR CHEST 1 VIEW; 03/06/2023 7:32 am INDICATION: Signs/Symptoms:post op COMPARISON: None ACCESSION NUMBER(S): [id number] ORDERING CLINICIAN: JASON FOSTER TECHNIQUE: Frontal and [...] Sara Zarate 03/06/2023 1:48 PM Dictation workstation: [id number] XR chest 1 view Result Date: 03/05/2023 Interpreted By: Baldomero Hendrickson, STUDY: XR CHEST 1 VIEW; 03/05/2023 3:11 pm INDICATION: CLINICAL INFORMATION: Signs/Symptoms:NG tube placement confirmation. COMPARISON: 03/05/2019 at 745 hours ACCESSION NUMBER(S): [id number] ORDERING CLINICIAN: DESMOND TIRADO TECHNIQUE: Portable chest [...] Baldomero Hendrickson 03/05/2023 3:31 PM Dictation workstation: [id number] XR chest 1 view Result Date: 03/05/2023 Interpreted By: Nya Ahmadi, STUDY: XR CHEST 1 VIEW 03/05/2023 7:51 am INDICATION: Signs/Symptoms:confirm line placement COMPARISON: None available. ACCESSION NUMBER(S): [id number] ORDERING CLINICIAN: SERENA GEORGE TECHNIQUE: AP erect view of the chest FINDINGS: Right arm PICC line terminates in the SVC. There is no pneumothorax. The heart, mediastinum, and lungs are normally visualized. Right arm PICC line terminating in SVC without pneumothorax. No acute cardiopulmonary disease. Signed by: Nya Ahmadi 03/05/2023 7:54 AM Dictation workstation: [id number] Assessment/Plan NV, Epigastric Pain (LFTs are normal. [...] with abdominal pain. 32-year-old female presents to [facility] for chief complaint of abdominal pain, [...] emergency room close to her home near [place], [place] for further evaluation and was promptly transferred to [facility] for further evaluation and treatment. The [...] medical history of MARSHAL (acute kidney injury) ([facility]), Autoimmune disorder ([facility]/HCC), Bipolar disorder (CMS/HCC), BPH (benign prostatic hyperplasia), Cerebral aneurysm, Cervical cancer ([facility]/HCC), Cervical disc disease, Chronic kidney disease, CKD (chronic kidney disease), Cognitivedecline, Crohn's disease ([facility]/HCC), Dementia ([facility]/HCC), Dysphagia, Endometrial cancer ([facility]/HCC), Esophageal cancer ([facility]/HCC), Esophageal disease, ESRD (end stage renal disease) ([facility]), Fibromyalgia, primary, Fractures, Gastric cancer ([facility]/HCC), Gender dysphoria, GI (gastrointestinal bleed), Hemodialysis status ([facility]), Hernia, internal, History of peritoneal dialysis, HIV disease ([facility]/HCC), Immunocompromised ([facility]/HCC), Liver disease, Lumbar disc disease, Mastocytosis, MS (multiple sclerosis) ([facility]), Muscular dystrophy ([facility]/HCC), Myasthenia gravis (CMS/HCC), Neuromuscular disorder (CMS/HCC), Ovarian [...] Hypertension Mother Jessica Artino Cancer Maternal Grandfather Danyell Kraus COPD Maternal Grandfather Danyell Kraus Heart disease Maternal Grandfather Danyell Kraus Kidney disease Maternal Grandfather Danyell Kraus Hypertension Maternal Grandmother Grandpa Anesthesia problems [...] Smith documented in this [facility] Work Phone: 1(574) 124-175702-01-2024 Plan of care note* Care Plan - Andie Lugo RN - 03/18/2023 11:05 AM EST The patient's goals for the shift include Free from pain The clinical goals for the shift include decrease nausea [facility] Work Phone: [phone]) 305-383902-01-2024 Nurse Note* Andie Lugo RN - 03/18/2023 7:27 AM EST Assumed care of pt, pt resting quietly in bed, ng to liws , will monitor [facility] Work Phone: [phone] Plan of care note* Care Plan - [...] pain meds throughout the shift Outcome: Progressing [facility] Work Phone: [phone] Consult note* Kurt Matos MD - 03/17/2023 [...] with liver biopsy in April 2020 at [facility] in evaluation of her chronic abdominal pain and intermittent food intolerance. She had a vertical sleeve gastrectomy at [facility] on September 03, 2020 for morbid obesity. She had a diagnostic laparoscopy on March 20, 2021 at [facility] for chronic pain thought to be secondary to an abdominal wall hernia. No hernia was seen at laparoscopy. She complained of gastroesophageal reflux disease and had her vertical sleeve gastrectomy converted to Tna-en-Y gastric bypass at [facility] on January 29, 2022. On March 06, 2022 she had an upper endoscopy at [facility] for epigastric abdominal pain. Her gastrojejunostomy was congested, edematous, with erosions and friable mucosa. The anastomosis was dilated and she was discharged on twice daily PPI. She had an upper endoscopy at [facility] onJune 23, 2022 for epigastric pain. At that time her gastrojejunostomy appeared normal. She continued to complain of abdominal pain and had an upper endoscopy at the [facility] on October 27, 2022. She was found to have food in her stomach and jejunum. There was no evidence of gastrojejunal ulcer. On November 11, 2022 she had laparoscopic closure of internal hernia at the jejunojejunostomy and ERCP through her gastric remnant for her abdominal pain. She was hospitalized at the [facility] on December 06, 2022 for [...] by laparotomy on March 05, 2023 at [facility]. She was discharged to home [...] medical history of MARSHAL (acute kidney injury) ([facility]), Autoimmune disorder ([facility]/HCC), Bipolar disorder ([facility]/HCC), BPH (benign prostatic hyperplasia), Cerebral aneurysm, Cervical cancer ([facility]/HCC), Cervical disc disease, Chronic kidney disease, CKD (chronic kidney disease), Cognitivedecline, Crohn's disease ([facility]/HCC), Dementia ([facility]), Dysphagia, Endometrial cancer ([facility]), Esophageal cancer ([facility]), Esophageal disease, ESRD (end stage renal disease) ([facility]), Fibromyalgia, primary, Fractures, Gastric cancer ([facility]/HCC), Gender dysphoria, GI (gastrointestinal bleed), Hemodialysis status ([facility]), Hernia, internal, History of peritoneal dialysis, HIV disease ([facility]), Immunocompromised ([facility]), Liver disease, Lumbar disc disease, Mastocytosis, MS (multiple sclerosis) ([facility]), Muscular dystrophy ([facility]), Myasthenia gravis ([facility]), Neuromuscular disorder ([facility]), Ovarian cancer ([facility]), Pancreatitis, Peptic ulcer disease, Prematurity, PTSD (post-traumatic stress disorder), Schizophrenia ([facility]), Seizure disorder ([facility]/HCC), Spinal stenosis, Substanceaddiction ([facility]), Syncope, TIA (transient ischemic attack), Ulcerative colitis ([facility]/HCC), Urinary tract infection, Uterine cancer ([facility]/HCC), or Vertigo. Surgical History She has [...] Hypertension Mother Jessica Artino Cancer Maternal Grandfather Danyell Kraus COPD Maternal Grandfather Danyell Kraus Heart disease Maternal Grandfather Danyell Kraus Kidney disease Maternal Grandfather Danyell Kraus Hypertension Maternal Grandmother Grandpa Anesthesia problems [...] INDICATION: Signs/Symptoms:abdominal pain. COMPARISON: None. ACCESSION NUMBER(S): [id number] ORDERING CLINICIAN: TIFFANIE MENDEZ TECHNIQUE: Multiple fluoroscopic spot images were obtained during a single contrast upper GI with KUB. Total fluoroscopy time: 1 minute 32 seconds Radiation exposure (Reference Air Kerma): 99.36 mGy Images: 2 spot images 7 series and 2 delayed AP views of the abdomen FINDINGS: Ems Coordinator images demonstrate postsurgical changes from previous Tan-en-Y [...] Corie Garza 03/17/2023 5:00 PM Dictation workstation: [id number] Latest Reference Range & Units 03/17/23 07:04 [...] my evaluation and recommendations. Kurt Matos MD [facility] Work Phone: [phone] Nurse Note* Cathy Madera RN - 03/17/2023 6:05 PM EST NG tube re inserted per order. Patient tolerated well. No complications. This nurse requested orderfor xray for placement of NG tube. Order received. Waiting on agriscience technology instructor to verify placement per order. Will continue to monitor patient to ensure patient safety. [facility] Work Phone: [phone] Plan of care note* Care Plan - [...] pain control, maintain and ensure patient safety. [facility] Work Phone: [phone]) [phone] Nurse Note* Cathy Madera RN - 03/17/2023 [...] per to re insert NG tube and offset duplicating machine operator to low suction. Will re attempt with patients consent. [facility] Work Phone: [phone]) [phone] Nurse Note* Cathy Madera RN - 03/17/2023 12:06 PM EST Patient transported to [facility] for placement of NG. Patient off unit. [facility] Work Phone: [phone] Nurse Note* Cathy Madera RN - 03/17/2023 11:44 AM EST This nurse notified diazo technician that patient had NG tube placed and needed Xray for placement verification. This nurse messaged Rosa YUN to notify her that NG tube was placed and needed separate order for NG tube placement per diazo technician. Order received. Will continue to monitor patient to ensure patient safety. [facility] Work Phone: [phone] History and physical note* JAMA Judd - 03/17/2023 11:03 AM EST History Of Present Illness This is a 32-year-old female with past medical history of chronic abdominal pain, PCOS, PUD, depression, GERD, IBS, obesity (status post laparoscopic sleeve gastrectomy in August [address] Ku momBamk-ah-Z gastric bypass 01/29/[address] Kat) and [...] her local hospital and was transferred to [facility] per Dr. Magaña's request. Patient [...] Hypertension Mother Jessica Artino Cancer Maternal Grandfather Danyell Kraus COPD Maternal Grandfather Danyell Kraus Heart disease Maternal Grandfather Danyell Kraus Kidney disease Maternal Grandfather Danyell Kraus Hypertension Maternal Grandmother Grandpa Anesthesia problems [...] and IV contrast. COMPARISON: None.. ACCESSION NUMBER(S): [id number] ORDERING CLINICIAN: TIFFANIE MENDEZ TECHNIQUE: Oral contrast [...] Corie Garza 03/16/2023 5:46 PM Dictation workstation: [id number] XR chest 1 view Result Date: 03/06/2023 Interpreted By: Sara Zarate, STUDY: XR CHEST 1 VIEW; 03/06/2023 7:32 am INDICATION: Signs/Symptoms:post op COMPARISON: None ACCESSION NUMBER(S): [id number] ORDERING CLINICIAN: JASON FOSTER TECHNIQUE: Frontal and [...] Sara Zarate 03/06/2023 1:48 PM Dictation workstation: [id number] XR chest 1 view Result Date: 03/05/2023 Interpreted By: Baldomero Hendrickson, STUDY: XR CHEST 1 VIEW; 03/05/2023 3:11 pm INDICATION: CLINICAL INFORMATION: Signs/Symptoms:NG tube placement confirmation. COMPARISON: 03/05/2019 at 745 hours ACCESSION NUMBER(S): [id number] ORDERING CLINICIAN: DESMOND TIRADO TECHNIQUE: Portable chest [...] Baldomero Hendrickson 03/05/2023 3:31 PM Dictation workstation: [id number] XR chest 1 view Result Date: 03/05/2023 Interpreted By: Nya Ahmadi, STUDY: XR CHEST 1 VIEW 03/05/2023 7:51 am INDICATION: Signs/Symptoms:confirm line placement COMPARISON: None available. ACCESSION NUMBER(S): [id number] ORDERING CLINICIAN: SERENA GEORGE TECHNIQUE: AP erect view of the chest FINDINGS: Right arm PICC line terminates in the SVC. There is no pneumothorax. The heart, mediastinum, and lungs are normally visualized. Right arm PICC line terminating in SVC without pneumothorax. No acute cardiopulmonary disease. Signed by: Nya Ahmadi 03/05/2023 7:54 AM Dictation workstation: [id number] Assessment and Plan -Abdominal pain/nausea -Median arcuate [...] Continue home iron supplementation GERD: Continue Pepcid [facility] Work Phone: [phone] History and physical note* JAMA Judd - 03/17/2023 11:03 AM EST History Of Present Illness This is a 32-year-old female with past medical history of chronic abdominal pain, PCOS, PUD, depression, GERD, IBS, obesity (status post laparoscopic sleeve gastrectomy in August [address] Ku wxdNgoh-tf-I gastric bypass 01/29/[address] Kat) and [...] her local hospital and was transferred to [facility] per Dr. Magaña's request. Patient [...] Hypertension Mother Jessica Artino Cancer Maternal Grandfather Danyell Kraus COPD Maternal Grandfather Danyell Kraus Heart disease Maternal Grandfather Danyell Kraus Kidney disease Maternal Grandfather Danyell Kraus Hypertension Maternal Grandmother Grandpa Anesthesia problems [...] and IV contrast. COMPARISON: None.. ACCESSION NUMBER(S): [id number] ORDERING CLINICIAN: TIFFANIE MENDEZ TECHNIQUE: Oral contrast [...] Corie Garza 03/16/2023 5:46 PM Dictation workstation: [id number] XR chest 1 view Result Date: 03/06/2023 Interpreted By: Sara Zarate, STUDY: XR CHEST 1 VIEW; 03/06/2023 7:32 am INDICATION: Signs/Symptoms:post op COMPARISON: None ACCESSION NUMBER(S): [id number] ORDERING CLINICIAN: JASON FOSTER TECHNIQUE: Frontal and [...] Sara Zarate 03/06/2023 1:48 PM Dictation workstation: [id number] XR chest 1 view Result Date: 03/05/2023 Interpreted By: Baldomero Hendrickson, STUDY: XR CHEST 1 VIEW; 03/05/2023 3:11 pm INDICATION: CLINICAL INFORMATION: Signs/Symptoms:NG tube placement confirmation. COMPARISON: 03/05/2019 at 745 hours ACCESSION NUMBER(S): [id number] ORDERING CLINICIAN: DESMOND TIRADO TECHNIQUE: Portable chest [...] Baldomero Hendrickson 03/05/2023 3:31 PM Dictation workstation: [id number] XR chest 1 view Result Date: 03/05/2023 Interpreted By: Nya Ahmadi, STUDY: XR CHEST 1 VIEW 03/05/2023 7:51 am INDICATION: Signs/Symptoms:confirm line placement COMPARISON: None available. ACCESSION NUMBER(S): [id number] ORDERING CLINICIAN: SERENA GEORGE TECHNIQUE: AP erect view of the chest FINDINGS: Right arm PICC line terminates in the SVC. There is no pneumothorax. The heart, mediastinum, and lungs are normally visualized. Right arm PICC line terminating in SVC without pneumothorax. No acute cardiopulmonary disease. Signed by: Nya Ahmadi 03/05/2023 7:54 AM Dictation workstation: [id number] Assessment and Plan -Abdominal pain/nausea -Median arcuate [...] supplementation GERD: Continue Pepcid [facility]: [phone] Nurse Note* Cathy Madera RN - 03/17/2023 10:58 AM EST Patient is ordered NPO this nurse received verbal orders with readback to administer oral medication per Rosa YUN at bedside. Will continue to monitor patient to ensure patient safety. [facility] Work Phone: [phone] Nurse Note* Cathy Madera RN - 03/17/2023 [...] to monitor patient to ensure patient safety. [facility] Work Phone: [phone] Consult note* JAMA Petersen - 03/17/2023 10:29 [...] Irritable bowel syndrome, Median arcuate ligament syndrome ([facility]/HCC), PCOS (polycystic ovarian syndrome), PONV (postoperative nausea and vomiting), PUD (peptic ulcer disease), and Shortness of breath. She has no past medical history of MARSHAL (acute kidney injury) ([facility]), Autoimmune disorder ([facility]), Bipolar disorder ([facility]), BPH (benign prostatic hyperplasia), Cerebral aneurysm, Cervical cancer ([facility]), Cervical disc disease, Chronic kidney disease, CKD (chronic kidney disease), Cognitivedecline, Crohn's disease ([facility]/HCC), Dementia ([facility]), Dysphagia, Endometrial cancer ([facility]), Esophageal cancer ([facility]), Esophageal disease, ESRD (end stage renal disease) ([facility]), Fibromyalgia, primary, Fractures, Gastric cancer ([facility]), Gender dysphoria, GI (gastrointestinal bleed), Hemodialysis status ([facility]), Hernia, internal, History of peritoneal dialysis, HIV disease ([facility]), Immunocompromised ([facility]), Liver disease, Lumbar disc disease, Mastocytosis, MS (multiple sclerosis) ([facility]), Muscular dystrophy ([facility]), Myasthenia gravis ([facility]), Neuromuscular disorder ([facility]), Ovarian cancer ([facility]), Pancreatitis, Peptic ulcer disease, Prematurity, PTSD (post-traumatic stress disorder), Schizophrenia ([facility]), Seizure disorder ([facility]), Spinal stenosis, Substanceaddiction ([facility]), Syncope, TIA (transient ischemic attack), Ulcerative colitis ([facility]), Urinary tract infection, Uterine cancer ([facility]), or Vertigo. Surgical History She [...] Hypertension Mother Jessica Phipps Cancer Maternal Grandfather Danyell Kraus COPD Maternal Grandfather Danyell Kraus Heart disease Maternal Grandfather Danyell Kraus Kidney disease Maternal Grandfather Danyell Kraus Hypertension Maternal Grandmother Grandpa Anesthesia problems [...] and IV contrast. COMPARISON: None.. ACCESSION NUMBER(S): [id number] ORDERING CLINICIAN: TIFFANIE MENDEZ TECHNIQUE: Oral contrast [...] Corie Garza 03/16/2023 5:46 PM Dictation workstation: [id number] XR chest 1 view Result Date: 03/06/2023 Interpreted By: Sara Zarate, STUDY: XR CHEST 1 VIEW; 03/06/2023 7:32 am INDICATION: Signs/Symptoms:post op COMPARISON: None ACCESSION NUMBER(S): [id number] ORDERING CLINICIAN: JASON FOSTER TECHNIQUE: Frontal and [...] Sara Zarate 03/06/2023 1:48 PM Dictation workstation: [id number] XR chest 1 view Result Date: 03/05/2023 Interpreted By: Baldomero Hendrickson, STUDY: XR CHEST 1 VIEW; 03/05/2023 3:11 pm INDICATION: CLINICAL INFORMATION: Signs/Symptoms:NG tube placement confirmation. COMPARISON: 03/05/2019 at 745 hours ACCESSION NUMBER(S): [id number] ORDERING CLINICIAN: DESMOND TIRADO TECHNIQUE: Portable chest [...] Baldomero Hendrickson 03/05/2023 3:31 PM Dictation workstation: [id number] XR chest 1 view Result Date: 03/05/2023 Interpreted By: Nya Ahmadi, STUDY: XR CHEST 1 VIEW 03/05/2023 7:51 am INDICATION: Signs/Symptoms:confirm line placement COMPARISON: None available. ACCESSION NUMBER(S): [id number] ORDERING CLINICIAN: SERENA GEORGE TECHNIQUE: AP erect view of the chest FINDINGS: Right arm PICC line terminates in the SVC. There is no pneumothorax. The heart, mediastinum, and lungs are normally visualized. Right arm PICC line terminating in SVC without pneumothorax. No acute cardiopulmonary disease. Signed by: Nya Ahmadi 03/05/2023 7:54 AM Dictation workstation: [id number] Assessment/Plan NV, Epigastric Pain (LFTs are normal. [...] in the presence of Dr. Tato Nguyen. [facility] Work Phone: [phone] Nurse Note* Cathy Madera RN - 03/17/2023 [...] to monitor patient to ensure patient safety. [facility] Work Phone: [phone]) [phone] Consult note* Lizz Brunson APRN-[employer]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 - 03/16/2023 5:09 PM EST Consults Reason For Consult Medical management History Of Present Illness Abbey Garcia is a 32 y.o. female presenting with abdominal pain. 32-year-old female presents to [facility] for chief complaint of abdominal pain, [...] emergency room close to her home near [place], [place] for further evaluation and was promptly transferred to [facility] for further evaluation and treatment. The hospitalist service is being consulted for medical management of hypothyroidism, asthma, GERD. Past Medical History She has a past medical history of Anxiety, Arthritis, Asthma, CPAP (continuous positive airway pressure) dependence, Depression, Dizziness, GERD (gastroesophageal reflux disease), Hypothyroidism, Irritable bowel syndrome, Median arcuate ligament syndrome ([facility]/HCC), PCOS (polycystic ovarian syndrome), PONV (postoperative nausea and vomiting), PUD (peptic ulcer disease), and Shortness of breath. She has no past medical history of MARSHAL (acute kidney injury) ([facility]), Autoimmune disorder ([facility]), Bipolar disorder ([facility]), BPH (benign prostatic hyperplasia), Cerebral aneurysm, Cervical cancer ([facility]), Cervical disc disease, Chronic kidney disease, CKD (chronic kidney disease), Cognitivedecline, Crohn's disease ([facility]), Dementia ([facility]), Dysphagia, Endometrial cancer ([facility]), Esophageal cancer ([facility]), Esophageal disease, ESRD (end stage renal disease) ([facility]), Fibromyalgia, primary, Fractures, Gastric cancer ([facility]), Gender dysphoria, GI (gastrointestinal bleed), Hemodialysis status ([facility]), Hernia, internal, History of peritoneal dialysis, HIV disease ([facility]), Immunocompromised ([facility]), Liver disease, Lumbar disc disease, Mastocytosis, MS (multiple sclerosis) ([facility]), Muscular dystrophy ([facility] Myasthenia gravis ([facility]), Neuromuscular disorder ([facility]), Ovarian cancer ([facility]), Pancreatitis, Peptic ulcer disease, Prematurity, PTSD (post-traumatic stress disorder), Schizophrenia ([facility]), Seizure disorder ([facility]), Spinal stenosis, Substanceaddiction ([facility]), Syncope, TIA (transient ischemic attack), Ulcerative colitis ([facility]), Urinary tract infection, Uterine cancer ([facility]), or Vertigo. Surgical History She [...] Hypertension Mother Jessica Jeterino Cancer Maternal Grandfather Danyell Kraus COPD Maternal Grandfather Danyell Kraus Heart disease Maternal Grandfather Danyell Kraus Kidney disease Maternal Grandfather Danyell Kraus Hypertension Maternal Grandmother Grandpa Anesthesia problems [...] consult. Will continue to follow. JAMA Smith [facility] Work Phone: 1([phone]) 105-349501-30-2024 Emergency department Note* Grecia Oates RN - 03/16/2023 5:00 PM EST Pt is requesting pain medication. MD Barker notified. Grecia Oates RN 03/16/23 170 [facility] Work Phone: [phone] Emergency department Note* Grecia Oates RN - 03/16/2023 5:00 PM EST Pt is requesting pain medication. MD Barker notified. Grecia Oates RN 03/16/23 170 * Grecia Oates RN - 03/16/2023 3:54 PM EST Pt has not been able to sustain orthostatic VS. She is not able to stand at this time. Grecia Oates RN 03/16/23 [id number] * Grecia Oates RN - 03/16/2023 1:46 PM EST Pt arrived from [place] due to abdominal pain due to celiac [...] dictation software, please excuse any errors in supervisor inspection. Melisa Barker MD 03/16/231919 * HENNY Miller-C - 03/16/2023 1:37 PM EST HPI Chief Complaint Patient presents with Abdominal Pain Patient is a 32-year-old female history of gastric bypass surgery, median arcuate ligament syndromewith vascular surgery performed on March 05 transferred to [facility] from [facility] in [place] for abdominal pain and nausea vomiting. Patient states the abdominal pain is mid abdominal, no signs of surgical scar infection, states she has been unable to tolerate p.o. intake for 2 days now. She states she feels a burning cramping sensation around where her gastric pouch was placed. ER spoke with Dr. Magaña vascular surgeon who requested for patient to be sent to [facility] for further evaluation. Patient denies recent fever [...] Hypertension Mother Jessica Artino Cancer Maternal Grandfather Danyell Kraus COPD Maternal Grandfather Danyell Kraus Heart disease Maternal Grandfather Danyell Kraus Kidney disease Maternal Grandfather Danyell Kraus Hypertension Maternal Grandmother Grandpa Anesthesia problems [...] Tue Mar 16, 2023 142 Vascular surgery [employer] wanted to put in the imaging study [...] at this time. He spoke with Tiffanie [employer] for vascular surgery. He epic chatted me stating that they would except the patient for admission under vascular surgery. [JJ] ED Course User Index [JJ] Leatha Paul PA-C Diagnoses as of 03/16/231639 Abdominal pain Nausea and vomiting, unspecified vomiting type History of gastric bypass Medical Decision Making Parts of this chart have been completed using voice recognition software. Please excuse any errors of supervisor inspection. My thought process and reason for plan [...] from: Patient, EMS, attending ER physician at [facility] Social Determinants of Health considered during this [...] and has been validated for use at [facility]. Negative results do not preclude COVID-19 infections or Influenza A/B infections, and should not be used as the sole basis for diagnosis, treatment, or other management decisions. If Influenza A/B and RSV PCR results are negative, testing for Parainfluenza virus, Adenovirus and Metapneumovirus is routinely performed for [facility] pediatric oncology and intensive care inpatients, and [...] Dr. Magaña transferred ER to ER from [place] for further evaluation of her abdominal pain [...] Ngo RN 03/17/23 0826 documented in this [facility] Work Phone: 1([phone] 237-206101-30-2024 Emergency department Note* Grecia Oates RN - 03/16/2023 3:54 PM EST Pt has not been able to sustain orthostatic VS. She is not able to stand at this time. Grecia Oates RN 03/16/23 5122 [facility] Work Phone: 1(516) 846-581001-30-2024 Note* Significant Event - Channing Oconnor DO - 03/16/2023 3:02 PM EST Called to admit this patient for abdominal pain. Going to review, this patient has a ongoing history since 2019 of abdominal pain with considerable notes from [facility], and has a history gastric bypass, cholecystectomy, sphincterectomy, and recent median arcuate ligament release on March 05 with vascular surgery. Patient [place] the [facility] department [place] [facility] [place] abdominal [place] and sent home, [...] issue which will be best done at [facility] either as inpatient or outpatient, where she has ongoing work, or is a postoperative situation that has been discussed multiple times with the primary operating service (and I have discussed with Tiffanie Mendez CNP with their service and there appears to be a good plan for imaging studies), and can ba admitted by their service). 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 [place] be here for vascular surgery? Pt is A&O x3. States terrible pain in abdomen that doesn't go away. C/O nausea, vomiting, headaches, body chills. [facility] Work Phone: 1([phone]) 496-694601-30-2024 Emergency department Note* Linda Ngo RN - 03/16/2023 1:37 PM EST Into assess patient. Patient awake and A&OX4. Patient complains of incisional pain and requested Percocet for relief, rates pain 7/10. Assessed incisional wound on abdomen, incision well approximated, dry and scabbed, no drainage noted. Patient admits to surgery On 03/05/23 for MALS. Medicated with percocet as requested. Linda Ngo RN 03/17/23 08 [facility]01-30-2024 Emergency department Note* Linda Ngo RN - 03/16/2023 1:37 PM EST Report called to DEE Ortiz updated on patient's status. Linda Ngo RN 03/17/23825 [facility] Work Phone: [phone] Physician Emergency department Note* Melisa Barker MD [...] dictation software, please excuse any errors in supervisor inspection. Melisa Barker MD 03/16/231919 [facility] Work Phone: [phone] Physician Emergency department Note* Leatha Paul PA-C - 03/16/2023 1:37 PM EST HPI Chief Complaint Patient presents with Abdominal Pain Patient is a 32-year-old female history of gastric bypass surgery, median arcuate ligament syndromewith vascular surgery performed on March 05 transferred to [facility] from [facility] in [place] for abdominal pain and nausea vomiting. Patient states the abdominal pain is mid abdominal, no signs of surgical scar infection, states she has been unable to tolerate p.o. intake for 2 days now. She states she feels a burning cramping sensation around where her gastric pouch was placed. ER spoke with Dr. Magaña vascular surgeon who requested for patient to be sent to [facility] ER for further evaluation. Patient denies recent fever or chills. No other acute complaints at this time. [place] Coma Scale Score: 15 Patient History Past [...] Hypertension Mother Jessica Artino Cancer Maternal Grandfather Danyell Kraus COPD Maternal Grandfather Danyell Efra Heart disease Maternal Grandfather Danyell Kraus Kidney disease Maternal Grandfather Danyell Efra Hypertension Maternal Grandmother Grandpa Anesthesia problems [...] Tue Mar 16, 2023 142 Vascular surgery EARTH SCIENCE FACULTY MEMBER wanted to put in the imaging study [...] recognition software. Please excuse any errors of supervisor inspection. My thought process and reason for plan [...] from: Patient, EMS, attending ER physician at [facility] Social Determinants of Health considered during this visit: Lives independently Medications given during visit: Medications dextrose 5%-0.45 % sodium chloride infusion (150 mL/hr intravenous New Bag 03/16/23 7170) albuterol 2.5 mg /3 mL (0.083 %) [...] 5 mg (5 mg intravenous Given 03/16/23 8610) Diagnostic/tests Labs Reviewed CBC WITH AUTO DIFFERENTIAL [...] and has been validated for use at [facility]. Negative results do not preclude COVID-19 infections or Influenza A/B infections, and should not be used as the sole basis for diagnosis, treatment, or other management decisions. If Influenza A/B and RSV PCR results are negative, testing for Parainfluenza virus, Adenovirus and Metapneumovirus is routinely performed for [facility] pediatric oncology and intensive care inpatients, and [...] Dr. Magaña transferred ER to ER from [place] for further evaluation of her abdominal pain [...] Procedure Procedures Leatha Paul PA-C 03/16/23 1643 [facility] Work Phone: 1([phone]) 798-913601-29-2024 Hospital Discharge instructions Patient Education 03/15/2023 18:18:58 [...] Follow these instructions at home: Medicines Take jgof-xpr-ebhjxqu and prescription medicines only as told by [...] Watch your condition for any changes. Take gbiz-bku-xpiglgw and prescription medicines only as told by [...] provider. Document Revised: 03/22/2020 Document Reviewed: 06/12/2019 [employer]ple Patient Education 2022 Ping4. Follow Up Care 03/15/2023 11:45:15 With:Your surgeon Dr. Magaña Address:Unknown When:03/16/2023 17:30:59 [facility]01-29-2024 Evaluation + Plan noteExtracted from: Title:ED Note [...] 09:45:00 AM Scheduled Provider:Nasim JOHNSON, Rajni Ballesteros Location:[facility] Appointment Type:URO Office Visit Future Scheduled Tests Radiology* US Renal 06/10/22 [facility]01-24-2024 Hospital Discharge instructions* Discharge Instr - Diet* Yue German RN - 03/10/2023 3:19 PM EST Regular Diet documented in this encounterPremier Health Work Phone: [phone] 396-609601-24-2024 History of Present illness Narrative* Keesha Jack [...] Pt cleared for dc. Updates ent to [facility] who the pt has already been active with, F2F, dc summary and AVS sent via [facility] [employer], [facility] in 1-2 days. Pt ok to dc. 03/10/23 6353 Discharge Planning Patient expects to be discharged to: [facility] * Tiffanie Mendez APRN-OFFSHORE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 - 03/10/2023 11:32 AM EST Images from [...] for p.o. Valium and Percocet sent to [facility] pharmacy - Follow-up orders placed for 1 month virtual appoint with Dr. Magaña - Work note faxed to her work as well as uploaded into [employer] - Cleared for discharge from vascular standpoint. [...] LE Dressing: Yes LE Dressing Adaptive Equipment: Presser First, Sock aide Pants Level of Assistance: Setup, [...] functional mobility a short household distance at [facility] for safety with close S. Pt demonstrating fair+/good standing balance with increased fatigue noted throughout task Outcome Measures:[facility] Daily Activity Putting on and taking [...] via laparotomy (03/05). Spoke with RN and OFFSHORE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 regarding plans for consult. Theplan is for [...] cream, , Topical, TID PRN, Alicia Toro, SPEECH PATHOLOGY SUPERVISOR-BETH enoxaparin (Lovenox) syringe 40 mg, 40 mg, subcutaneous, Daily, Chrissy Harris PA-C, 40 mg at 03/09/23820 escitalopram (Lexapro) tablet 20 mg, 20 mg, oral, Daily, Chrissy Harris PA-C, 20 mg at 03/09/23 0821 famotidine (Pepcid) tablet 20 mg, 20 mg, oral, BID, 20 mg at 01/23/24 0821 OR famotidine PF (Pepcid) injection 20 [...] 0.5 mg, intravenous, q4h PRN, Tiffanie Mendez, SLIM-OFFSHORE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, 0.5 mg at 03/09/23 1338 hydrOXYzine HCL [...] tablet 50 mg, 50 mg, oral, BID, Chrsisy Harris PA-C, 50 mg at 03/09/23 0821 [...] LE Dressing: Yes LE Dressing Adaptive Equipment: Presser First, Sock aide Pants Level of Assistance: Setup, [...] advice provided to abside by precautions Outcome Measures:[facility] Daily Activity Putting on and taking [...] by discharge. Outcome: Progressing * Alicia Toro APRN-OFFSHORE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 - 03/09/2023 10:50 AM EST Abbey Garcia [...] INDICATION: Signs/Symptoms:post op COMPARISON: None ACCESSION NUMBER(S): [id number] ORDERING CLINICIAN: JASON FOSTER TECHNIQUE: Frontal and [...] Sara Zarate 03/06/2023 1:48 PM Dictation workstation: [id number] Physical Exam Constitutional: Appearance: Normal appearance. HENT: [...] steps, 1 rail, non-reciprocating pattern. Outcome Measures: [facility] Basic Mobility Turning from your back [...] End: 03/20/23 Resolved: 03/09/23 * Jason Foster APRN-OFFSHORE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 - 03/09/2023 10:24 AM EST Abbey Garcia [...] ILIANA Morrell - 03/09/2023 9:24 AM EST [facility] state pt is already active with them and are able to continue to provide Rn for tpn and added PT. 03/09/23922 Discharge Planning Patient expects to be discharged to: [facility] * ILIANA Morrell - 03/08/2023 2:52 PM EST ILAINA met with pt at bedside. Pt lives in a house with her and 3 kids in two story house with first floor setup. 5 steps to enter the house. Pt drives, works, independent for mobility. Pt wears glasses. Only other medical supplies at home are for TPN. Pts PCP is Dr Jaquan Morrow with [facility], prescriptions filled through [facility] in [place]. Discussion around dc planning needs with the pt stating she will probably benefit from home health PT. Referrals sent to homecare agencies that service where she lives, these agencies include [facility], [address], [facility], [facility], [facility], await responses. 03/08/23 5932 Discharge Planning Patient expects to be discharged to: Home with [facility] * Anam Khoury, PT - 03/08/2023 1:16 [...] prior to attempting to sit Outcome Measures: [facility] Basic Mobility Turning from your back [...] required d/t increase pain and fatigue Outcome Measures:[facility] Daily Activity Putting on and taking [...] by discharge. Outcome: Progressing * Alicia Toro, SPEECH PATHOLOGY SUPERVISOR-OFFSHORE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 - 03/08/2023 11:04 AM EST Abbey Garcia [...] INDICATION: Signs/Symptoms:post op COMPARISON: None ACCESSION NUMBER(S): [id number] ORDERING CLINICIAN: JASON FOSTER TECHNIQUE: Frontal and [...] Sara Zarate 03/06/2023 1:48 PM Dictation workstation: [id number] Physical Exam Constitutional: Appearance: Normal appearance. HENT: [...] INDICATION: Signs/Symptoms:post op COMPARISON: None ACCESSION NUMBER(S): [id number] ORDERING CLINICIAN: JASON FOSTER TECHNIQUE: Frontal and [...] Sara Zarate 03/06/2023 1:48 PM Dictation workstation: [id number] Physical Exam Constitutional: Appearance: Normal appearance. HENT: [...] Magaña; impaired mobility Referred By: Jason Foster, SPEECH PATHOLOGY SUPERVISOR-OFFSHORE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 Past Medical History Relevant to Rehab: MALS, [...] due to increased fatigue levels. Outcome Measures: [facility] Basic Mobility Turning from your back [...] INDICATION: Signs/Symptoms:post op COMPARISON: None ACCESSION NUMBER(S): [id number] ORDERING CLINICIAN: JASON FOSTER TECHNIQUE: Frontal and [...] Sara Zarate 03/06/2023 1:48 PM Dictation workstation: [id number] Physical Exam Constitutional: General: She is not [...] Karma Sharpe MD * Jason Jonh Foster, SPEECH PATHOLOGY SUPERVISOR-OFFSHORE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 - 03/06/2023 1:57 PM EST Abbey Garcia [...] 50 mg, oral, BID Continuous medications potassium rxnuvxtt-A7-3.9%NaCl, 125 mL/hr, Last Rate: 125 mL/hr (03/06/23 [...] post release via laparotomy yesterday by Dr. Maagña. 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 Take before meals. Pt to machine operator picker prescription ondansetron ODT (Zofran-ODT) 4 mg [...] Hypertension Mother Jessica Artino Cancer Maternal Grandfather Danyell Kraus COPD Maternal Grandfather Danyell Kraus Heart disease Maternal Grandfather Danyell Kraus Kidney disease Maternal Grandfather Danyell Kraus Hypertension Maternal Grandmother Grandpa Anesthesia problems Paternal Grandfather Elan Artino Arthritis Paternal Grandfather Elan Artino Hypertension Paternal Grandfather Elan Artino Anesthesia related problems Paternal Grandfather Elan Artino COPD Paternal Grandmother Grandmother Diabetes Paternal Grandmother Grandmother Asthma Brother [facility] Medications: potassium clddmzln-J2-0.9%NaCl, 125 mL/hr, Last Rate: 125 mL/hr (03/06/23 [...] Desmond Tirado PA-C, 10 mg at 03/05/23 214 dextrose 10 % in water (D10W) infusion, [...] BID, Baldomero Richards, [facility], 20 mg at 03/05/23 214 ferrous sulfate [...] 1 tablet, oral, q4h PRN, Jason Mckeon APRN-OFFSHORE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 polyethylene glycol (Glycolax, Miralax) packet 17 g, [...] ICU skin protocol Ethics/Code Status: Full code Philosophy Specialist: DVT Prophylaxis: Lovenox GI Prophylaxis: pepcid Bowel Regimen: miralax Diet: Clear liquids CVC: none Yoli: yes - left radial Long: yes Restraints: no Dispo: ICU Critical Care Time: 40 minutes Chrissy Harris PA-C documented in this encounterPremier Health Work Phone: 1(653) [phone] Nurse Note* Edilia Darby RN - 03/10/2023 11:57 AM EST Patient with Rt arm dual lumen picc, dressing D&I, red lumen in use without difficulty, purple lumen flushes easily and with positive blood return, curos cap applied. [facility]01-24-2024 Nurse Note* Edilia Darby RN - 03/10/2023 [...] scanned for over 650cc, pt straight cath [id number] * Olga Paz RN - 03/07/2023 5:47 [...] will reach out to vascular doctor and EARTH SCIENCE FACULTY MEMBER for the order. * Ron Mancera RN - 03/05/2023 1:58 PM EST Informed WIRE SPRING RELAY ADJUSTER to ask Dr. Magaña for admit orders prior to transfer. documented in this [facility] Work Phone: [phone] Nurse Note* Nadia Zee RN - 03/10/2023 11:36 AM EST Long catheter removed [facility]01-24-2024 Nurse Note* Eileen Austin RN - 03/10/2023 12:14 AM EST Blood sugar 79 gave patient hailee crackers and pudding. Complained 08/24 pain percocet was given [facility]01-23-2024 Consult note* Jin Vargas MD - 03/09/2023 [...] Esophageal disease, ESRD (end stage renal disease) ([facility]/HCC), Fibromyalgia, primary, Fractures, Gastric cancer (CMS/HCC), Gender dysphoria, GI (gastrointestinal bleed), Hemodialysis status ([facility]/HCC), Hernia, internal, History of peritoneal dialysis, HIV disease (CMS/HCC), Immunocompromised (CMS/HCC), Liver disease, Lumbar disc disease, Mastocytosis, MS (multiple sclerosis) ([facility]/HCC), Muscular dystrophy ([facility]/HCC), Myasthenia gravis ([facility]/HCC), Neuromuscular disorder ([facility]/HCC), Ovarian cancer ([facility]/HCC), Pancreatitis, Peptic ulcer disease, Prematurity, PTSD (post-traumatic stress disorder), Schizophrenia ([facility]/HCC), Seizure disorder ([facility]/HCC), Spinal stenosis, Substanceaddiction ([facility]/HCC), Syncope, TIA (transient ischemic attack), Ulcerative colitis ([facility]/HCC), Urinary tract infection, Uterine cancer ([facility]/HCC), or Vertigo. Surgical History She has [...] Hypertension Mother Jessica Artino Cancer Maternal Grandfather Danyell Kraus COPD Maternal Grandfather Danyell Kraus Heart disease Maternal Grandfather Danyell Kraus Kidney disease Maternal Grandfather Danyell Kraus Hypertension Maternal Grandmother Grandpa Anesthesia problems [...] care of this patient. Jin Vargas MD [facility] Work Phone: [phone]) 785-799701-23-2024 Consult note* Jin Vargas MD - 03/09/2023 [...] Irritable bowel syndrome, Median arcuate ligament syndrome ([facility]/HCC), PCOS (polycystic ovarian syndrome), PONV (postoperative nausea and vomiting), PUD (peptic ulcer disease), and Shortness of breath. She has no past medical history of MARSHAL (acute kidney injury) ([facility]), Autoimmune disorder ([facility]), Bipolar disorder ([facility]/HCC), BPH (benign prostatic hyperplasia), Cerebral aneurysm, Cervical cancer ([facility]), Cervical disc disease, Chronic kidney disease, CKD (chronic kidney disease), Cognitivedecline, Crohn's disease ([facility]), Dementia ([facility]), Dysphagia, Endometrial cancer ([facility]), Esophageal cancer ([facility]), Esophageal disease, ESRD (end stage renal disease) ([facility]), Fibromyalgia, primary, Fractures, Gastric cancer ([facility]), Gender dysphoria, GI (gastrointestinal bleed), Hemodialysis status ([facility]), Hernia, internal, History of peritoneal dialysis, HIV disease ([facility]), Immunocompromised ([facility]), Liver disease, Lumbar disc disease, Mastocytosis, MS (multiple sclerosis) ([facility]), Muscular dystrophy ([facility]), Myasthenia gravis ([facility]), Neuromuscular disorder ([facility]), Ovarian cancer ([facility]), Pancreatitis, Peptic ulcer disease, Prematurity, PTSD (post-traumatic stress disorder), Schizophrenia ([facility]), Seizure disorder ([facility]), Spinal stenosis, Substanceaddiction ([facility]), Syncope, TIA (transient ischemic attack), Ulcerative colitis ([facility]), Urinary tract infection, Uterine cancer ([facility]), or Vertigo. 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 She was seen at [facility] by Dr. Kat and underwent an [...] She had a CT angiogram recently at [facility] but this is not available [...] This is with Dr. Ramos over the [facility]. Currently any oral intake will [...] 650 mg, rectal, q4h PRN, Jason Foster, SPEECH PATHOLOGY SUPERVISOR-OFFSHORE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 albuterol 2.5 mg /3 mL (0.083 %) [...] BID, Baldomero Richards, [facility], 20 mg at 03/06/23 0854 ferrous sulfate [...] 03/09/23 documented in this [facility] Work Phone: 1([phone]) 516-514301-23-2024 Nurse Note* Yue Ferris RN - 03/09/2023 2:22 PM EST Upon rounding right upper arm dual lumen PICC with current CHG dressing dry and intact. One lumen in use, one with brisk blood return and flushes easily, Curos cap intact. [facility]01-22-2024 Plan of care note* Care Plan - Danny Middleton RN - 03/08/2023 11:21 PM EST The patient's goals for the shift include rest The clinical goals for the shift include pain will be controled overnight. [facility]01-22-2024 Miscellaneous Notes* Care Plan - Danny Middleton [...] Promote/optimize nutrition Outcome: Progressing Flowsheets (Taken 03/08/2023 9448) Promote/optimize nutrition: Monitor/record intake including meals Consume [...] Mancera RN Outcome: Progressing 03/05/2023 1549 by Jhoanne Villamor, RN Outcome: Progressing Goal: Performs ADL's with [...] Procedures Release Median Arcuate Ligament by LAPAROTOMY [id number] - [place] UNLISTED PX ABDOMEN MUSCULOSKELETAL SYSTEM Surgeons * Sherry Magaña - Primary Resident/Fellow/Other Cpo: Surgeon(s) and Role: Procedure Summary Anesthesia: General ASA: III Anesthesia Staff: Anesthesiologist: Serena George DO PACKAGE CENTER SUPERVISOR: Maricruz Yip APRN-THOMAS Estimated Blood Loss: 2mL [...] EXAM Sherry Magaña MD 03/05/2023 1125 Staff: Merchandise Presentation Associate: Mary Mccabe RN; Natalie Young RN Scrub Person: Nadia Escobedo; Thu Ford Drains and/or Catheters: NG/OG/Feeding Tube NG - [place] sump 16 Fr Right nostril (Active) Tube [...] MEMBRANE, SEPRAFILM, 5 X 6 IN - [id number] Implanted Findings: heavily inflammed ligamentous tissues and [...] Magaña documented in this [facility] Work Phone: 1(699) 955-592501-22-2024 Plan of care note* Care Plan - [...] meds throughout the shift Outcome: Progressing . [facility]01-22-2024 Plan of care note* Care Plan - Olga Paz RN - 03/08/2023 2:27 AM EST The patient's goals for the shift include rest The clinical goals for the shift include increase activity Over the shift, the patient did not make progress toward the following goals. Barriers to progression include weak/pain. Recommendations to address these barriers include administer medications/interventions as ordered. [facility] Work Phone: 1(521) 334-972201-22-2024 Nurse Note* Olga Paz RN - 03/08/2023 1:[address] Oconnor notified of retained urine. Order to insert long catheter. 16F long catheter placed, clear yellow urine return. Pt tolerated well. [facility]01-22-2024 Nurse Note* Olga Paz RN - 03/08/2023 12:48 AM EST Pt unable to urinate but continues to have an urge to do so. Bladder scan performed with 1152ml found. Page out to hospitalist. [facility] Work Phone: 1(862) 420-161101-21-2024 Nurse Note* Nadia Zee RN - 03/07/2023 5:09 PM EST Pt with 10cc urine output since long removed, bladder scanned for over 650cc, pt straight cath [id number] [facility] Work Phone: 1(902) 127-714001-21-2024 Plan of care note* Care Plan - Nadia Zee RN - 03/07/2023 8:50 AM EST The patient's goals for the shift include rest The clinical goals for the shift include increase activity Over the shift, the patient did not make progress toward the following goals. Barriers to progression include . Recommendations to address these barriers include . [facility] Work Phone: 1([phone] 640-130501-21-2024 Nurse Note* Olga Paz RN - 03/07/2023 5:47 AM EST Long catheter removed per order. Pt tolerated well [facility] Work Phone: 1([phone]) 698-735501-20-2024 Plan of care note* Care Plan - Olga Paz RN - 03/06/2023 8:57 PM EST The patient's goals for the shift include rest The clinical goals for the shift include increase activity Over the shift, the patient did not make progress toward the following goals. Barriers to progression include weak/pain. Recommendations to address these barriers include encouragement/administer medications/interventions as ordered. [facility] Work Phone: [phone] 234-682101-20-2024 Nurse Note* Vic Gilliland RN - 03/06/2023 4:22 PM EST Seeking clarification of appropriate disposition of patient and possible transfer to SDU. Patient understands possibility of transfer. 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 She was seen at [facility] by Dr. Kat and underwent an [...] She had a CT angiogram recently at [facility] but this is not available [...] This is with Dr. Ramos over the [facility]. Currently any oral intake will [...] BID, Baldomero Richards, [facility], 20 mg at 03/06/23 0854 ferrous sulfate [...] Needed?: 3-5 days Follow up Comment: 03/09/23 [facility]01-20-2024 Plan of care note* Care Plan - [...] Recommendations to address these barriers include steroids. [facility] Work Phone: 1([phone]) 420-199201-20-2024 Nurse Note* Vic Gilliland RN - 03/06/2023 9:01 AM EST Returned to bed with assist of two. Head of bed elevated 45 degrees. [facility] Work Phone: 1([phone] 282-368301-19-2024 Nurse Note* Ron Mancera RN - 03/05/2023 4:[address] Magaña at bedside, informed of the muscle spasm and administering PRN diazepam. No new orders placed. Plan to remove NGT tomorrow morning. [facility] Work Phone: [phone] 429-649301-19-2024 Plan of care note* Care Plan - [...] 1549 by Ron Mancera RN Outcome: Progressing [facility] Work Phone: 1(190) 997-357501-19-2024 History and physical note* Desmond Tirado PA-C - 03/05/2023 2:49 PM EST [facility] Critical Care Medicine Date: [...] the morning. Take before meals. Pt to machine operator picker prescription ondansetron ODT (Zofran-ODT) 4 mg [...] Hypertension Mother Jessica Artino Cancer Maternal Grandfather Danyell Kraus COPD Maternal Grandfather Danyell Kraus Heart disease Maternal Grandfather Danyell Kraus Kidney disease Maternal Grandfather Danyell Kraus Hypertension Maternal Grandmother Grandpa Anesthesia problems Paternal Grandfather Elan Artino Arthritis Paternal Grandfather Elan Artino Hypertension Paternal Grandfather Elan Artino Anesthesia related problems Paternal Grandfather Elan Artino COPD Paternal Grandmother Grandmother Diabetes Paternal Grandmother Grandmother Asthma Brother [facility] Medications: Current Facility-Administered Medications: acetaminophen (Tylenol) [...] ICU skin protocol Ethics/Code Status: Full code Philosophy Specialist: DVT Prophylaxis: none GI Prophylaxis: pepcid Bowel [...] Desmond Tirado PA-C [facility] Work Phone: [phone] 468-716301-19-2024 History and physical note* Desmond Triado PA-C - 03/05/2023 2:49 PM EST [facility] Critical Care Medicine Date: [...] the morning. Take before meals. Pt to machine operator picker prescription ondansetron ODT (Zofran-ODT) 4 mg [...] Hypertension Mother Jessica Artino Cancer Maternal Grandfather Danyell Kraus COPD Maternal Grandfather Danyell Kraus Heart disease Maternal Grandfather Danyell Kraus Kidney disease Maternal Grandfather Danyell Kraus Hypertension Maternal Grandmother Grandpa Anesthesia problems Paternal Grandfather Elan Artino Arthritis Paternal Grandfather Elan Artino Hypertension Paternal Grandfather Elan Artino Anesthesia related problems Paternal Grandfather Elan Artino COPD Paternal Grandmother Grandmother Diabetes Paternal Grandmother Grandmother Asthma Brother [facility] Medications: Current Facility-Administered Medications: acetaminophen (Tylenol) [...] tablet, 1 tablet, oral, q4h PRN, Jason Mckeon, SPEECH PATHOLOGY SUPERVISOR-OFFSHORE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 sennosides (Senokot) tablet 17.2 mg, 2 tablet, oral, BID, Jason Foster, SPEECH PATHOLOGY SUPERVISOR-OFFSHORE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 Review of Systems: Review of Systems Constitutional: [...] ICU skin protocol Ethics/Code Status: Full code Philosophy Specialist: DVT Prophylaxis: none GI Prophylaxis: pepcid Bowel [...] Desmond Tirado PA-C [facility] * Sherry Magaña MD - 03/05/2023 [...] 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 She was seen at [facility] by Dr. Kat and underwent an [...] She had a CT angiogram recently at [facility] but this is not available [...] This is with Dr. Ramos over the [facility]. Currently any oral intake will [...] to review the CT angiogram done at [facility]. She is going to undergo [...] with Dr. Deacon Kat. [facility]: [phone] Nurse Note* Ron Mancera RN - 03/05/2023 2:01 PM EST Patient in the unit from PACU, unable to transfer in [facility]. No admit order yet. PACU Rns saw the warning note when trying to transfer the patient without admit orders. PACU staff will reach out to vascular doctor and EARTH SCIENCE FACULTY MEMBER for the order. [facility] Work Phone: [phone] Nurse Note* Ron Mancera RN - 03/05/2023 1:58 PM EST Informed WIRE SPRING RELAY ADJUSTER to ask Dr. Magaña for admit orders prior to transfer. [facility] Work Phone: [phone] 605-352201-19-2024 Note* Perioperative Nursing Note - Samantha Fields RN - 03/05/2023 1:52 PM EST Patient meets PACU discharge criteria. [facility]01-19-2024 Note* Perioperative Nursing Note - Samantha Fields RN - 03/05/2023 1:07 PM EST Patient to PACU bay 7 with left radial art line in place. Zeroed and waveforms appropriate. Clean/dry and intact. VSS. [facility] Work Phone: [phone] 180-640001-19-2024 Note* Op Note - Sherry Magaña MD [...] Procedures Release Median Arcuate Ligament by LAPAROTOMY [id number] - UT UNLISTED PX ABDOMEN MUSCULOSKELETAL SYSTEM Surgeons * Sherry Magaña - Primary Resident/Fellow/Other Cpo: Surgeon(s) and Role: Procedure Summary Anesthesia: General ASA: III Anesthesia Staff: Anesthesiologist: Serena George DO PACKAGE CENTER SUPERVISOR: Maricruz Yip APRN-THOMAS Estimated Blood Loss: 2mL [...] EXAM Sherry Magaña MD 03/05/2023 1125 Staff: Merchandise Presentation Associate: Mary Mccabe RN; Natalie Young RN Scrub Person: Nadia Escobedo; Thu Ford Drains and/or Catheters: NG/OG/Feeding Tube NG - [place] sump 16 Fr Right nostril (Active) Tube [...] MEMBRANE, SEPRAFILM, 5 X 6 IN - [id number] Implanted Findings: heavily inflammed ligamentous tissues and [...] scrubbed for the entire procedure. 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 She was seen at [facility] by Dr. Kat and underwent an [...] She had a CT angiogram recently at [facility] but this is not available [...] This is with Dr. Ramos over the [facility]. Currently any oral intake will [...] to review the CT angiogram done at [facility]. She is going to undergo [...] UGIS. Will discuss with Dr. Deacon Kat. [facility] Work Phone: [phone]) [phone] NoteHNO ID: [id number] Author: Rylee Thacker APRN.OFFSHORE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 Service: ? Author Type: Nurse Practitioner Type: Progress Notes Filed: 01/28/2023 3:12 PM Note Text: [facility] Miscellaneous Notes* Telephone Encounter - Laura Rodas RN - 01/18/2023 9:20 AM EST Call placed to [facility] to confirm received potassium orders for (K-2.9). No answer and [facility] (Do not feel Dr. Kat is managing TPN as well) * Telephone Encounter - Dorita Manning - 01/15/2023 11:47 AM EST [facility] called regarding potassium level. Level was 2.9. Patient already on max dose of potassium allowed with her TPN. They are asking for recommendations # [phone] [facility]-27-[facility]23 Miscellaneous Notes* Telephone Encounter - Joaquín [...] if so ok to call her back [phone] Ok to leave a message documented in this encounterThe [facility]11-27-2023 Miscellaneous Notes* Telephone Encounter - Fern Jonas LPN - 01/11/2023 10:49 AM EST Surg request placed, pt aware, instructions given verbally and via mychart, all questions and concerns addressed. documented in this encounterThe [facility] Hospital11-27-2023 NoteHNO ID: [id number] Author: Fern Jonas LPN Service: ? Author Type: LICENSED NURSE Type: Progress Notes Filed: 01/11/2023 10:42 AM Note Text: Please verify and cosign BRO [facility]11-27-2023 History of Present illness Narrative* Fern Jonas LPN - 01/11/2023 10:37 AM EST Please verify and cosign Fern Jonas LPN documented in this encounterThe [facility]11-24-2023 [facility]11-24-2023 History of Present illness Narrative* Vic [...] which included preparing to see the patient, mwva-uh-qeca patient care, completing clinical documentation, obtaining and/or reviewing separately obtained history, counseling and educating the patient/family/caregiver, ordering medications, stevan ts, or procedures, communicating with other HCPs (not separately reported), independently interpreting results (not separately reported), communicating results to the patient/family/caregiver, and care coordination (not separately reported). Vic Ramos MD January 08, 2023 documented in this encounterThe [facility]11-22-2023 Miscellaneous Notes* Telephone Encounter - Clarence [...] pain for visit. documented in this encounterThe [facility] Hospital11-16-2023 Hospital Discharge instructions Patient Education 12/31/2022 [...] oral rehydration solution (ORS). This is an rnqg-bnv-towgedg medicine that helps return your body to [...] drinks, sports drinks, and soda. Eat bland, owva-fr-vhmhpe foods in small amounts as you are able. These foods include bananas, applesauce, rice, lean meats, toast, and crackers. Avoid alcohol. Avoid spicy or fatty foods. Medicines Take seyh-jvp-bqsqsyf and prescription medicines only as told by your health care provider. If you were prescribed an antibiotic medicine, take it as told by your health care provider. Do notstop using the antibiotic even if you start to feel better. General instructions Wash your hands often using soap and water. If soap and water are not available, use a hand software release engineer. Others in the household should wash their [...] soap and water are not available, usehand software release engineer. Contact a health care provider if your diarrhea gets worse or you have new symptoms. Get help right away if you have signs of dehydration. This information is not intended to replace advice given to you by your health care provider. Make sure you discuss any questions you have with your health care provider. Document Revised: 08/13/2021 Document Reviewed: 08/13/2021 Appy Couple Patient Education 2022 Ping4. 12/31/2022 16:02:59 Abdominal Pain, Adult Abdominal Pain, [...] Follow these instructions at home: Medicines Take xpol-jnn-wyeabzo and prescription medicines only as told by [...] Watch your condition for any changes. Take ojkd-wcq-dgrxsro and prescription medicines only as told by [...] provider. Document Revised: 03/22/2020 Document Reviewed: 06/12/2019 Appy Couple Patient Education 2022 Ping4. Follow Up Care 12/31/2022 12:31:54 With:Jaquan Morrow Address: [address] [place] [address] Business (1) When:01/03/2023 15:35:16 [facility]11-16-2023 Evaluation + Plan noteExtracted from: Title:ED Note [...] 10:00:00 AM Scheduled Provider:Nasim JOHNSON, Rajni Ballesteros Location:[facility] Appointment Type:URO Office Visit Future Scheduled Tests Radiology* US Renal 06/10/22 [facility]11-13-2023 Miscellaneous Notes* Telephone Encounter - Shanique Manning HUC - 12/28/2022 4:05 PM EST BMI Incoming Patient Nursing Line Call Summary: Situation/Concerns Melisa Potter's called [phone] called and said Abbey needs a RTWletter [...] Encounter. CHRIS Katz documented in this encounterThe [facility]10-30-2023 History of Present illness Narrative* Deacon [...] visit. Either the patient or their legal procurement representative has been informed of the risks [...] Deacon Kat MD documented in this encounterThe [facility]10-30-2023 [facility]10-25-2023 NoteOhio[facility]10-25-2023 [facility]Ohio[facility]10-25-2023 [facility]Ohio[facility]10-24-2023 Note [facility]10-23-2023 [facility]Ohio[facility]10-23-2023 [facility]Ohio[facility]10-23-2023 [facility] 12-04-2022 History and physical note* Agustin [...] started since her last admission to [facility] last week. Patient's weight has [...] Time: 2:19 PM documented in this encounterThe [facility] Hospital10-19-2023 Miscellaneous Notes* Telephone Encounter - Oliva Dobbs RN - 12/03/2022 2:00 AM EDT BMI SPECIALTY CARE COORDINATION TELEPHONE ENCOUNTER Patient hospitalized 11/27 unsure if d/c. Referred to Dr Kat who referred to Dr Zamorano [facility] of hypothyroidism, HTN, gastric ulcer, [...] for MALS- plans for surgical intervention at [facility] Consult scheduled with Dr Zamorano on 12/04. Will r/s if pt still in house. 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 Patient received a PICC line for home TPN to bridge her to surgery. Patient is scheduled with Dr. Zamorano for virtual consult 12/04/2022. Patient with increasednausea with TPN, [facility] continues to adjust medications. Li Kimball RN documented in this encounterThe Jewish Hospital10-14-2023 NoteHNO ID: [id number] Author: Note, Interface Service: ? Author Type: ? Type: Progress Notes Filed: 11/28/2022 5:10 AM Note Text: Epic Scheduled Downtime: 11/28/2022 1:00:00 AM to 11/28/2022 1:28:00 [facility]10-14-2023 NoteHNO ID: [id number] Author: Note, Interface Service: ? Author Type: ? Type: Progress Notes Filed: 11/28/2022 3:45 AM Note Text: Epic Scheduled Downtime: 11/28/2022 1:00:00 AM to 11/28/2022 1:28:00 [facility]44-[facility]-2881 NoteHNO ID: [id number] Author: Note, Interface Service: ? Author Type: ? Type: Progress Notes Filed: 11/28/2022 3:27 AM Note Text: Epic Scheduled Downtime: 11/28/2022 1:00:00 AM to 11/28/2022 1:28:00 [facility]10-12-2023 NoteHNO ID: [id number] Author: Quyen Deshpande RN Service: ? Author Type: Registered Nurse Type: Progress Notes Filed: 11/26/2022 10:37 AM Note Text: Patient in office for hydration infusion. Patient tolerated infusion well. [facility] [id number] Miscellaneous Notes* Telephone Encounter - Kristin Hu RN - 11/25/2022 12:55 PM EDT Left message confirming pts appt tomorrow in the chronic care clinic for hydration. documented in this encounterThe [facility] Hospital10-09-2023 Miscellaneous Notes* Telephone Encounter - Li Kimball RN - 11/23/2022 2:26 PM EDT Mesenteric ultrasound scheduled for 11/26/2022 at [facility], patient notified. Li Kimball RN * Telephone Encounter - Li Kimball RN - 11/23/2022 12:31 PM EDT I spoke to the patient's and advised that I have a request out to [facility] for IV hydration and Dr. Kat has [...] Li Kimball RN documented in this encounterThe [facility] Hospital10-08-2023 [facility] 11-22-2022 [facility] HospitalOwlzrfqs03-32-9985 NoteBeth Israel Deaconess HospitalVioxusah83-30-3915 NoteHNO ID: [id number] Author: Rajni Walsh RN Service: ? Author Type: Registered Nurse Type: Nursing Progress Note Filed: 11/18/2022 10:13 AM Note Text: Other: C/o ultram not working.Will see about another order.Urine was sent to lab.Will reassess.[facility] [id number] NoteBeth Israel Deaconess HospitalZmsbztiy04-24-2382 Miscellaneous Notes* Telephone Encounter - Li Kimball RN - 11/16/2022 11:51 AM EDT Patient called and states she continues to have abdominal pain and is asking for a Tramadol prescription. Patient also asking for IV fluids as her fluid intake is still not normal. Li Kimball RN documented in this encounterThe Jewish Hospital09-29-2023 NoteHNO ID: [id number] Author: Pablo Lebron PSYD Service: ? Author Type: Psychologist Type: Progress Notes Filed: 11/13/2022 8:36 AM Note Text: Assessment was conducted over the phone due to pt's technical difficulties. Patient is a resident of [place], and completed the assessment over the phone in [place]. Psychologist is licensed and stationed in [place]. Informed consent was discussed and verbal assent [...] Focused Psychotherapy, Supportive Therapy PROGRESS TO DATE: Stem Mounter Progress: Stable Short Term Condition: Stable GOALS/OBJECTIVES/INTERVENTIONS: To identify and implement tools for effectively managing symptoms of anxiety, stress, and low mood. Approximately 40 minutes were spent with the patient doing therapy. Pablo Lebron PsyDElizabeth Mason Infirmary09-28-2023 NoteBeth Israel Deaconess HospitalPlafxjhp18-57-8582 NoteBeth Israel Deaconess HospitalMjbzresk80-78-0913 NoteBeth Israel Deaconess HospitalDnaczmyg88-62-3969 History of Past illness Narrative* Problem Noted [...] this encounter (statuses as of 11/17/2022) [facility] History of Past illness Narrative* Problem [...] this encounter (statuses as of 11/18/2022) [facility] History of Past illness Narrative* Problem [...] this encounter (statuses as of 11/21/2022) [facility] of Past illness Narrative* Problem [...] this encounter (statuses as of 11/24/2022) [facility] of Past illness Narrative* Problem [...] this encounter (statuses as of 11/25/2022) [facility] of Past illness Narrative* Problem [...] this encounter (statuses as of 11/27/2022) [facility] of Past illness Narrative* Problem [...] this encounter (statuses as of 12/02/2022) [facility] of Past illness Narrative* Problem [...] this encounter (statuses as of 12/03/2022) [facility] of Past illness Narrative* Problem [...] this encounter (statuses as of 12/15/2022) [facility] of Past illness Narrative* Problem [...] this encounter (statuses as of 12/15/2022) [facility] of Past illness Narrative* Problem [...] this encounter (statuses as of 12/17/2022) [facility] of Past illness Narrative* Problem [...] this encounter (statuses as of 12/31/2022) [facility] of Past illness Narrative* Problem [...] this encounter (statuses as of 01/06/2023) [facility] of Past illness Narrative* Problem [...] this encounter (statuses as of 01/08/2023) [facility] of Past illness Narrative* Problem [...] this encounter (statuses as of 01/11/2023) [facility] of Past illness Narrative* Problem [...] this encounter (statuses as of 01/11/2023) [facility] of Past illness Narrative* Problem [...] of this encounter (statuses as of 01/12/2023) [facility] of Past illness Narrative* Problem [...] this encounter (statuses as of 01/18/2023) [facility] of Past illness Narrative* Problem [...] this encounter (statuses as of 01/18/2023) [facility] of Past illness Narrative* Problem [...] this encounter (statuses as of 04/07/2023) [facility] of Past illness Narrative* Problem [...] this encounter (statuses as of 05/05/2023) [facility] of Past illness Narrative* Problem [...] this encounter (statuses as of 05/07/2023) [facility] of Past illness Narrative* Problem [...] this encounter (statuses as of 05/10/2023) [facility] illness Narrative* Problem [...] this encounter (statuses as of 05/18/2023) [facility] illness Narrative* Problem [...] this encounter (statuses as of 05/27/2023) [facility] illness Narrative* Problem [...] this encounter (statuses as of 05/28/2023) [facility] illness Narrative* Problem [...] this encounter (statuses as of 05/28/2023) [facility] illness Narrative* Problem [...] this encounter (statuses as of 05/30/2023) [facility] of Past illness Narrative* Problem [...] this encounter (statuses as of 06/02/2023) [facility]-26-2023 [facility]Ohio[facility]09-25-2023 Miscellaneous Notes* Telephone Encounter - Li Kimball RN - 11/09/2022 4:40 PM EDT Patient notified that surgery has to be moved to Wednesday as gastroenterology is no longer available to assist. I encouraged the patient to come to [place] ED if pain worsens or she develops an newor other concerning symptoms. Patient stated understanding and had no further questions. Li Kimball RN documented in this encounterThe [facility]09-[facility]23 [facility] 11-06-2022 Miscellaneous Notes* Telephone Encounter - [...] within 10-15 minutes. Patient remains admitted to [facility] and is scheduled for a HIDA [...] Li Kimball RN documented in this encounterThe [facility] Hospital09-22-2023 [facility]06-[facility]22 [id number] History of Present illness Narrative* Agustin Sheets, [...] radiation safety can be found usingthis link: [email or web address] SIGNATURE: RT Oj(Gregory) PATIENT NAME: Abbey Garcia DATE: November 06, 2022 TIME: 10:54 AM PAGER/CONTACT #: documented in this encounterThe Jewish Hospital09-20-2023 History of Present illness Narrative* Deacon [...] healthy appearing mucosa. This was traversed. The neomz-ri-ttajvfc limb was characterized by healthy appearing mucosa. [...] YELLOW YELLOW APPEARANCE, URINE CLEAR CLEAR Specific [place], Urine 1.010 - 1.025 1.020 PH URINE [...] 5.98 ) Wt 83.5 kg (184 lb) [facility] 08/19/2020 SpO2 98% BMI 29.71 kg/m General [...] Deacon Kat MD documented in this encounterThe [facility] Hospital09-20-[facility] Miscellaneous Notes* Telephone Encounter - Haroon [...] on Haroon Seay APRN.CNP documented in this encounterThe Jewish Hospital09-18-2023 Emergency department Note * Dayanara Montana RN - 11/02/2022 11:55 AM EDT Pt states that her pain is getting worse along with her nausea [facility]09-18-2023 Emergency department Note* Dayanara Montana RN [...] Walker MD 11/02/22 1325 documented in this encounterWhite Hospital09-18-[facility] Emergency department Note* Dayanara Montana RN - 11/02/2022 11:44 AM EDT Pt requesting to use the restroom and wants assistance. Stand by assist given pt walk with a slow steady gait at this time without difficulty [facility]09-18-2023 Physician Emergency department Note* Dimitri Walker [...] gastric bypass surgeon. Dimitri Walker MD 11/02/22 9505 [facility]09-16-2023 Hospital Discharge instructions* Discharge Instructions* Jalyn [...] sent through Care Everywhere. * Back: Strain (Equatorial Guine[place]) [facility] 10-26-2022 [id number] History of Past illness Narrative* Problem Noted [...] this encounter (statuses as of 10/28/2022) [facility] History of Past illness Narrative* Problem [...] this encounter (statuses as of 11/03/2022) [facility] of Past illness Narrative* Problem [...] this encounter (statuses as of 11/03/2022) [facility] History of Past illness Narrative* Problem [...] this encounter (statuses as of 11/03/2022) [facility] of Past illness Narrative* Problem [...] this encounter (statuses as of 11/03/2022) [facility] of Past illness Narrative* Problem [...] this encounter (statuses as of 11/04/2022) [facility] of Past illness Narrative* Problem [...] this encounter (statuses as of 11/04/2022) [facility] of Past illness Narrative* Problem [...] this encounter (statuses as of 11/05/2022) [facility] of Past illness Narrative* Problem [...] this encounter (statuses as of 11/05/2022) [facility] History of Past illness Narrative* Problem [...] this encounter (statuses as of 11/06/2022) [facility] of Past illness Narrative* Problem [...] this encounter (statuses as of 11/06/2022) [facility] History of Past illness Narrative* Problem [...] this encounter (statuses as of 11/10/2022) [id number] Miscellaneous Notes* Telephone Encounter - Li Kimball [...] nausea vomiting and pain return call to [phone] documented in this encounterThe Jewish Hospital09-05-2023 Hospital Discharge instructions Patient Education 10/20/2022 [...] medicines. These include steroids, antibiotics, and some hodb-teh-betkwhv medicines, such as aspirin or ibuprofen. Having [...] Follow these instructions at home: Medicines Take eojm-gpw-yksawsg and prescription medicines only as told by [...] provider. Document Revised: 06/07/2021 Document Reviewed: 06/07/2021 Appy Couple Patient Education 2022 Ping4. 10/20/2022 12:40:07 Abdominal Pain, Adult Abdominal Pain, [...] Follow these instructions at home: Medicines Take ueag-ttz-frpgblr and prescription medicines only as told by [...] Watch your condition for any changes. Take rixo-slj-jklyzmp and prescription medicines only as told by [...] provider. Document Revised: 03/22/2020 Document Reviewed: 06/12/2019 Appy Couple Patient Education 2022 Ping4. Follow Up Care 10/20/2022 08:06:19 With:Jaquan Morrow Address: [address] [place] [phone]- Business (1) When:10/23/2022 12:06:27 [facility]09-04-2023 Evaluation + Plan noteExtracted from: Title:ED Note Author:Johnie Earnest VALENZUELA Date:10/19 Abdominal pain (R10.9: Unspe cified abdominal pain) Ordered: acetaminophen-oxycodone, 1 tab(s), Oral, q6hr for 3 day(s), 10 tab(s), Refill(s) 0, [id number], 168, cm, 10/19/22 8:44:00 EDT, Height/Length [...] nausea, # 10 tab(s), Refills(s) 0, Pharmacy: [facility] #[id number], 168, cm, 10/19/22 8:44:00 EDT, Height/Length [...] QID, # 280 mL, Refills(s) 0, Pharmacy: [facility] #[id number], 168, cm, 10/19/22 8:44:00 EDT, Height/Length Dosing, 85.6, kg, 10/19/22 8:44:00 EDT, Weight Dosing Automated Diff Basic Metabolic Panel CBC w/ Auto Diff eGFR Extra Blue Tube Extra SST Tube Hepatic Function Panel Lipase Level TSH With T4fr Reflex UA With Cult Reflex XR Chest 2 Views Future Appointments Appointment Date:11/20/2022 02:40:00 PM Scheduled Provider: Location:[facility] Appointment Type:FM Lab Draw Appointment Date:01/20/2023 10:00:00 AM Scheduled Provider:Rajni Rouse MD Location:[facility] Appointment Type:URO Office Visit Future Scheduled Tests Laboratory* T3 Free 10/07/22 * Thyroid Stimulating Hormone 10/07/22 * Free T4 10/07/22 Radiology* US Renal 06/10/22 [facility]09-04-2023 Hospital Discharge instructions Follow Up Care 10/19/2022 08:31:02 With:Jon Rivera Address: [address] [place] [phone]- [phone] Business (1) When:10/22/2022 13:40:06 With:Your GI physician Address:Unknown When:10/22/2022 13:40:01 With:Jaquan Morrow Address: [address] [place] [phone]- Business (1) When:Within 3 Day(s) [facility]08-31-2023 Miscellaneous Notes* Telephone Encounter - Ria Roberts [...] advise. Grecia Wallace documented in this encounterThe [facility] Hospital08-21-2023 NoteHNO ID: [id number] Author: Pablo Lebron PSYD Service: ? Author Type: Psychologist Type: Progress Notes Filed: 10/05/2022 3:51 PM Note Text: Assessment was conducted over the phone due to pt's technical difficulties. Patient is a resident of [place], and completed the assessment over the [place] in [place]. Psychologist is licensed and stationed in [place]. Informed consent was discussed and verbal assent [...] spent with the patient doing therapy. [facility] History of Present illness Narrative* Pablo Lebron, [facility] - 10/05/2022 3:07 PM EDT Assessment was conducted over the phone due to pt's technical difficulties. Patient is a resident of [place], and completed the assessment over the phone in [place]. Psychologist is licensed and stationed in [place]. Informed consent was discussed and verbal assent [...] Pablo Lebron PsyD documented in this encounterThe Jewish Hospital08-14-2023 Instructions* Patient Instructions* Xiomara Zhou, DADA - 09/28/2022 8:19 AM EDT 1. [...] Fusion multivitamin soft chews and calcium citrate 1452-7412 mg/day(3 soft chews), and continue Probiotic drink [...] should last 30 minutes. 7. Aim for 2373-4479 calories and 75-100 gm carbs per day Nutrition Monitoring & Evaluation: Maintain BMI < 30 Need for Follow up: 4 months, for conversion anniversary - [phone] documented in this encounterThe Jewish Hospital08-14-2023 History of Present illness Narrative* Xiomara Zhou RD - 09/28/2022 8:00 AM EDT [facility] Nutrition Therapy: Virtual Consult - Re-assessment I have communicated my name and active licensure. The patient s identity and physical location wereverified at the time of this visit. Either the patient or their legal procurement representative has been informed of the risks [...] Fusion multivitamin soft chews and calcium citrate 0725-9346 mg/day(3 soft chews), and continue Probiotic drink [...] should last 30 minutes. 7. Aim for 0852-8996 calories and 75-100 gm carbs per day Nutrition Monitoring & Evaluation: Maintain BMI < 30 Need for Follow up: 4 months, for conversion anniversary - [phone] PROGRESS: Interval History: Patient presents for follow [...] the day. Recently started tracking intake on [email or web address] bre. Consistent, but likely insufficient protein intake. Following Phase 5 diet currently. 6631-4739 calories/day - meeting low-end needs 60-70 gm protein intake/day - falling below recommendations 60-90 oz fluid intake/day - meeting needs Taking all vitamin/minerals, however insufficient calcium citrate. Labs reviewed, unremarkable. Resting Metabolic Rate:1557 Energy needs for weight loss 4532-6910 (15-20 carina/kg current weight) Protein needs: 85 [...] Fusion One a Day multivitamin capsule PLUS 0573-4917 mg calcium citrate 5. Exercise: strive for [...] Garcia DATE: 09/28/2022 TIME: 7:48 AM PAGER: [phone] documented in this encounterThe Jewish Hospital08-07-2023 History of Present illness Narrative* Pablo Lebron, ROSALBA - 09/21/2022 2:04 PM EDT Assessment was conducted over the phone due to pt's technical difficulties. [place] is a resident of [place], and completed the [place] the [place] in [place]. Psychologist is licensed and stationed in [place]. Informed consent was discussed and verbal assent [...] importance of working outside house; balance). 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 Animosity from and mom (not enough time at home). Hurt by mom's words wants to communicate, she internalizes. Marital therapy? Appreciative of family help with kids. Sources of support (brother and yrgoyb-vd-tyy), close friend High anxiety and panic attacks [...] Pablo Lebron PsyD documented in this encounterThe Jewish Hospital08-04-2023 History of Present illness Narrative* Breanna Stern APRN.OFFSHORE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 - 09/18/2022 3:14 PM EDT BMI SURGERY [...] Total weight loss: 11.3 kg (25 lb) [place] weight: 70.3 kg (154 lb 14.5 oz) Excess weight: 24.5 kg (54 lb 1.5 oz) % of excess body weight lost: 11.3 kg (25 lb) (46.22% of excess weight loss) COMPLICATIONS SINCE LAST VISIT?: NONE EGD 06/23/22 Findings: The examined esophagus was normal. 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 The gastrojejunal anastomosis was characterized by healthy appearing mucosa. This was traversed. The otvpv-jf-tcbyyho limb was characterized by healthy appearing mucosa. [...] 40 f bougie). This was traversed. The lmigr-dq-uqwsklc limb was characterized by healthy appearing mucosa. [...] 4 - Moderate documented in this encounterThe Jewish Hospital08-04-2023 Nurse Note* Jayla Meza MA - [...] No Drains: No documented in this encounterThe Jewish Hospital06-22-2023 Miscellaneous Notes* Telephone Encounter - Linda Hale RN - 08/06/2022 10:40 AM EDT Thank you, patient notified. * Telephone Encounter - Kasie Avalos MD - 08/06/2022 10:08 AM EDT I agree with Clinton. I signed a prescription for 145mcg per day. Thank you, Kasie Avalos MD * Telephone Encounter - Linda Hale RN - 08/06/2022 8:27 AM EDT Looks like insurance denied the appeal for M[employer]. Linzess is pended if you agree with the dosing. Linda Davis documented in this encounterThe Jewish Hospital06-14-2023 Hospital Discharge instructions Follow Up Care 07/29/2022 09:18:39 With:Nasim JOHNSON, YUMIKO Lamar, URO Address: [address] [place] [phone] When: Unknown [facility] [email or web address] 06-14-2023 Hospital Discharge instructions Patient Education 07/29/2022 [...] include: ?8 oz (237 mL) of milk, ndpvbzc-thjsbppwwjue-wplrw milk, and calcium- fortifiedfruit juice. Calcium-fortified means [...] ?Spinach (cooked), rhubarb, beets, sweet potatoes, and Burundian chard. ?Peanuts. ?Potato chips, algerian fries, and baked potatoes with skin on. ?Nuts and nut products. ?Chocolate. If you regularly take a diuretic medicine, make sure to eat at least 1 or 2 servings of fruits or vegetables that are high in potassium each day. These include: ?Avocado. ?Banana. ?Harney, prune, carrot, or tomato juice. ?Baked potato. [...] magnesium, fish oil, or vitamin B6. Take lbui-iik-dxigjdb and prescription medicines only as told by [...] Casseroles. Pizza. Lasagna. Frozen meals. Potato chips. Ghanaian fries. The items listed above may not [...] provider. Document Revised: 10/13/2021 Document Reviewed: 10/13/2021 Appy Couple Patient Education 2022 Ping4. Follow Up Care 06/30/2022 09:39:02 With:Nasim JOHNSON, YUMIKO Lamar, URO Address: When: Unknown [facility] 06-13-2023 Instructions* Patient Instructions* Samara Evans MD [...] or peeling skin. documented in this encounterThe Jewish Hospital06-13-2023 History of Present illness Narrative* Samara [...] Past Histories independently gathered by the clinical pc support specialist, and the remaining scribed note [...] Samara Evans MD documented in this encounterThe Jewish Hospital06-08-2023 Miscellaneous Notes* Telephone Encounter - Linda [...] decision. Thanks! * Telephone Encounter - Grecia Celesteelroy - 07/23/2022 11:10 AM EDT Fax received denying [employer] authorization Full letter scanned in [facility] for review Grecia Wallace * Telephone Encounter [...] Linda Hale RN * Telephone Encounter - Gercia Wallace - 07/23/2022 8:49 AM EDT Fax received from [facility] to notify M[employer] not covered, will need PA or prescribe alternative: Clinton, Noreen or Veronique Fax scanned in [facility] Grecia Celesteelroy documented in this encounterThe Jewish Hospital06-07-2023 History of Present illness Narrative* Donnie [...] with cornea provider or optom- closer to [place] - Will sendmessage Return precautions were discussed in detail Plan reviewed with the patient who verbalizes understanding Donnie David MD Ophthalmology Resident documented in this encounterThe Jewish Hospital06-07-2023 History of Present illness Narrative* Kasie [...] lesion. Mild degenerative changes. Lower thorax: Unremarkable. Ems Coordinator (topogram) images: No additional findings. CT ABD/PEL [...] Tissues: No acute abnormality. Lower thorax: Unremarkable. Ems Coordinator (topogram) images: No additional findings. US ABD [...] healthy appearing mucosa. This was traversed. The oscwv-iu-lwcrdzi limb was characterized by healthy appearing mucosa. [...] 40 f bougie). This was traversed. The bbdan-cg-tgulblh limb was characterized by healthy appearing mucosa. [...] ceroid-laden histiocytes. There is no interface activity. Minto bile duct branches are identified in nearly [...] July 22, 2022 documented in this encounterThe Jewish Hospital05-06-2023 History of Past illness Narrative* Problem Noted Date Resolved Date Intractable nausea and vomiting 06/20/2022 06/23/2022 Acute abdominal pain 12/21/2020 06/23/2022 Obesity 09/03/2020 11/29/2020 Abdominal pain 02/01/2020 04/08/2020 Moderate episode of recurrent major depressive d isorder 11/21/2019 01/03/2020 Obesity, Class II, BMI 35-39.9 10/13/2019 1 Last Assessment & Plan: Assessment: BMI 38.74 documented as of this encounter (statuses as of 07/22/2022) [facility] History of Past illness Narrative* Problem Noted Date Resolved Date Intractable nausea and vomiting 06/20/2022 06/23/2022 Acute abdominal pain 12/21/2020 06/23/2022 Obesity 09/03/2020 11/29/2020 Abdominal pain 02/01/2020 04/08/2020 Moderate episode of recurrent major depressive d isorder 11/21/2019 01/03/2020 Obesity, Class II, BMI 35-39.9 10/13/2019 1 Last Assessment & Plan: Assessment: BMI 38.74 documented as of this encounter (statuses as of 07/22/2022) [facility] History of Past illness Narrative* Problem Noted Date Resolved Date Intractable nausea and vomiting 06/20/2022 06/23/2022 Acute abdominal pain 12/21/2020 06/23/2022 Obesity 09/03/2020 11/29/2020 Abdominal pain 02/01/2020 04/08/2020 Moderate episode of recurrent major depressive d isorder 11/21/2019 01/03/2020 Obesity, Class II, BMI 35-39.9 10/13/2019 1 Last Assessment & Plan: Assessment: BMI 38.74 documented as of this encounter (statuses as of 07/23/2022) [facility] of Past illness Narrative* Problem Noted Date Resolved Date Intractable nausea and vomiting 06/20/2022 06/23/2022 Acute abdominal pain 12/21/2020 06/23/2022 Obesity 09/03/2020 11/29/2020 Abdominal pain 02/01/2020 04/08/2020 Moderate episode of recurrent major depressive d isorder 11/21/2019 01/03/2020 Obesity, Class II, BMI 35-39.9 10/13/2019 1 Last Assessment & Plan: Assessment: BMI 38.74 documented as of this encounter (statuses as of 07/23/2022) [facility] of Past illness Narrative* Problem Noted Date Resolved Date Intractable nausea and vomiting 06/20/2022 06/23/2022 Acute abdominal pain 12/21/2020 06/23/2022 Obesity 09/03/2020 11/29/2020 Abdominal pain 02/01/2020 04/08/2020 Moderate episode of recurrent major depressive d isorder 11/21/2019 01/03/2020 Obesity, Class II, BMI 35-39.9 10/13/2019 1 Last Assessment & Plan: Assessment: BMI 38.74 documented as of this encounter (statuses as of 08/03/2022) [facility] of Past illness Narrative* Problem Noted Date Resolved Date Intractable nausea and vomiting 06/20/2022 06/23/2022 Acute abdominal pain 12/21/2020 06/23/2022 Obesity 09/03/2020 11/29/2020 Abdominal pain 02/01/2020 04/08/2020 Moderate episode of recurrent major depressive d isorder 11/21/2019 01/03/2020 Obesity, Class II, BMI 35-39.9 10/13/2019 1 Last Assessment & Plan: Assessment: BMI 38.74 documented as of this encounter (statuses as of 08/06/2022) [facility] of Past illness Narrative* Problem [...] this encounter (statuses as of 09/19/2022) [facility] of Past illness Narrative* Problem [...] this encounter (statuses as of 09/22/2022) [facility] of Past illness Narrative* Problem [...] this encounter (statuses as of 09/28/2022) [facility] of Past illness Narrative* Problem [...] this encounter (statuses as of 10/06/2022) [facility] of Past illness Narrative* Problem [...] this encounter (statuses as of 10/15/2022) [facility] of Past illness Narrative* Problem [...] this encounter (statuses as of 10/21/2022) [facility] of Past illness Narrative* Problem [...] this encounter (statuses as of 12/21/2022) [facility] History of Present illness Narrative* Aliyah [...] advised she may send a message on [employer] if she has any additional questions. Aliyah Washburn PA-C Orthopaedic & Rheumatologic [facility] Date: June 18, 2022 Time: [...] Swollen Glands: No documented in this encounterThe Jewish Hospital04-28-2023 History of Present illness Narrative* Aliyah Washburn PA-C - 06/12/2022 10:26 AM EDT Images from the original note were not included. Rheumatology Outpatient Clinic Date of Service: 06/12/2022 Patient: Abbey Garcia Medical Record: [id number] Primary Care Physician: Wally Foley MD Last Rheumat[facility] Referring Provider: HENNY Marcus [address] [place] [address] [address] [facility] [id number] Consultation requested by Agustin Valentino for an [...] hypothyroidism. Reports she has not seen her administrative accountant recently. 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 She has not seen administrative accountant. Would like to rule out endocrine causes [...] which included preparing to see the patient, ynnc-kt-wxjj patient care, completing clinical documentation, obtaining and/or reviewing separately obtained history, performing a medically appropriate examination, counseling and educating the pat ient/family/caregiver, and ordering medications, tests, or procedures. Aliyah Washburn PA-C [facility] Date: June 12, 2022 Time: 10:26 AM documented in this encounterThe Jewish Hospital04-26-2023 Hospital Discharge instructions Patient Education 06/10/2022 [...] you until you feel stable. Medicines Take ovcl-axg-jcudpbg and prescription medicines only as told by [...] provider. Document Revised: 06/12/2021 Document Reviewed: 06/12/2021 Appy Couple Patient Education 2022 Ping4. 06/10/2022 17:05:57 Nonspecific Chest Pain, Adult Nonspecific [...] Follow these instructions at home: Medicines Take dlgy-wii-idwcmxg and prescription medicines only as told by [...] provider. Document Revised: 04/17/2021 Document Reviewed: 04/17/2021 Appy Couple Patient Education 2022 Ping4. Follow Up Care 06/10/2022 12:31:10 With:Chetna Jack Address: [address] [place] [address] [place] [address] [phone] Business (1) When:06/13/2022 17:03:30 Comments:Schedule event loop recorder as well as echocardiogram with central scheduling and then follow-up with vehicle maintenance supervisor Dr. Jack With:Jaquan Morrow Address: [address] [place] [phone] Business (1) When:06/13/2022 17:03:46 Comments:Call the office [...] you develop any new or worsening symptoms. [facility]01-20-2023 Nurse Note* Eli Carter RN - 03/06/2022 [...] REFERRAL (RECOMMENDATION): None documented in this encounterThe Jewish Hospital01-19-2023 Miscellaneous Notes* Telephone Encounter - Victor M Dennis - 03/05/2022 11:54 AM EST Spoke with the patient confirmed 1:45 arrival time for 2:45 appointment at [facility]. Victor M Dennis * Telephone Encounter - Li Kimball RN - 03/05/2022 10:31 AM EST I called patient and left a message with EGD appointment instructions and location. Call back number provided. Li Kimball RN documented in this encounterThe Jewish Hospital01-19-2023 Instructions* Patient Instructions* Breanna Stern APRN.CNP - 03/05/2022 10:18 AM EST I have asked scheduling to add you on for an appointment in 2 months for your regular follow up, we'll check your labs at that time. (I've ordered them, no need to fast) We may need to see you sooner based on results of your EGD documented in this encounterThe Jewish Hospital01-19-2023 History of Present illness Narrative* Breanna [...] Total weight loss: 19.1 kg (42 lb) [place] weight: 70.3 kg (154 lb 14.5 oz) [...] Breanna Stern APRN.BETH documented in this encounterThe Jewish Hospital12-30-2022 History of Present illness Narrative* Kuldip [...] lateral patellar facet. Bilateral PF crepitance IMPRESSION: (S73.696D) Acetabular labrum tear, right, subsequent encounter (primary encounter diagnosis) PLAN: 1. Medication: None. 2. Test(s)/Imaging/Referral(s): None. 3. Intervention: Continue conservative treatment. Objectively, patients hip is doing well post op. She has been dealing with a right knee injury as well (images were uploaded in the system today). She saw a provider in the [place] area who recommended her have an osteotomy. 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 We discussed the option of seeing Dr. Gutierres for a second opinion as patient is eager to see someone through the [facility] system. We will help her set [...] Past Histories independently gathered by the clinical pc support specialist and the remaining scribed note accurately describes my personal service to the patient. Kuldip Yousif MD documented in this encounterThe [facility] Hospital12-22-2022 Miscellaneous Notes* Telephone Encounter - Li [...] Li Kimball RN documented in this encounterThe Jewish Hospital12-21-2022 History of Present illness Narrative* Nahed Tamez, DADA - 02/04/2022 9:24 AM EST [facility] Nutrition Therapy: Virtual Consult - Re-assessment [...] Fusion One a Day multivitamin capsule PLUS 3829-5634 mg calcium citrate daily) 4. Protein goal: 75-93 grams protein/day. 5. Fluid goal: 64oz per day water. (no calories, no caffeine, no carbonation, no alcohol) 6. Call the BMI department at [phone] to schedule your one month post op [...] Fusion One a Day multivitamin capsule PLUS 0906-8636 mg calcium citrate 5. Exercise: strive for [...] Garcia DATE: 02/04/2022 TIME: 9:24 AM PAGER: [phone] documented in this encounterThe Jewish Hospital12-20-2022 Instructions* Patient Instructions* Breanna Stern APRN.CNP [...] activity as tolerated. documented in this encounterThe Jewish Hospital12-20-2022 History of Present illness Narrative* Breanna [...] Total weight loss: 15.4 kg (34 lb) Averill weight: 70.3 kg (154 lb 14.5 oz) [...] 1 month post op visit. Breanna Stern APRN.CNP documented in this encounterThe Jewish Hospital12-20-2022 Nurse Note* Lucia Ramirez MA - 02/03/2022 2:53 PM EST What is the reason for your visit today? Follow up Who is your referring physician? Are you having poor oral intake? A little Have you had unintentional weight loss of 15 lbs/7 Kg in the last 3-6 months? NO Bowels: regular Wound: Temperature: No Drains: No documented in this encounterThe Jewish Hospital12-20-2022 Miscellaneous Notes* Telephone Encounter - Li [...] Li Kimball RN documented in this encounterThe [facility] Hospital12-19-2022 Miscellaneous Notes* Telephone Encounter - Li Kimball RN - 02/02/2022 2:39 PM EST See 02/02/2022 MyChart encounter Li Kimball RN * Telephone Encounter - Olga Paul - 02/02/2022 8:46 AM EST Patient called in and will like a refill on pain medication. Patients pharmacy is the [facility] in [place]. Contact# [phone] documented in this encounterThe Jewish Hospital12-14-2022 History and physical note * Ioana [...] fevers. Neuro: No history of TIA's, stroke, LOAN OPERATIONS MANAGER tumor, impaired sensorium, hemiplegia, paraplegia or quadraplegia. No neurological symptoms or problems. Respiratory: +RICHAR, asthma Negative for COPD, Current cough, Dyspnea, Home O2, Pneumonia within 6 weeks (date), Wheezing Cardiovascular: +hx HTN during /post , resolved. Negative for Recent [place], Angina, CAD, Chest Pain, CHF, DVT/PE GI: [...] TIME: 11:05 AM documented in this encounterThe Jewish Hospital12-08-2022 Instructions* Patient Instructions* Ioana Hogan PA-C - 01/22/2022 11:55 AM EST PATIENT PREOPERATIVE INSTRUCTIONS Deacon Kat MD has scheduled you for your procedure at this surgery center: [facility]: [phone] --[address] [address]. Please check in on the1st floor at [...] - YOU MUST HAVE A RESPONSIBLE MANAGER TECHNICAL SALES TAKE YOU HOME. A HYDRAULICS TEACHER OR SALES FLOOR TEAM LEADER CANNOT BE MADE A RESPONSIBLE MANAGER TECHNICAL SALES. - We recommend that a responsible person stays with you overnight to take care of you. - You cannot stay in a hotel alone after outpatient surgery. You will not be permitted to have yoursurgery, if you do not have someone to take care of you. If you already have an Advance Directive, please fax a copy to [phone] or email to for it to be [...] Ioana Hogan PA-C documented in this encounterThe Jewish Hospital12-06-2022 Miscellaneous Notes* Telephone Encounter - Li [...] Li Kimball RN documented in this encounterThe Jewish Hospital11-22-2022 Miscellaneous Notes* Telephone Encounter - Li [...] Li Kimball RN documented in this encounterThe Jewish Hospital11-18-2022 Instructions* Patient Instructions* Sabina Joy APRN.OFFSHORE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 - 01/02/2022 11:29 AM EST Images from the original note were not included. Mutually Agreed Upon Goals Eating Plan: [employer] Pal BRE - Log intake 2 days [...] for meditation - Mindful Moments by [facility]. Alan. Insight Timer https://[email or web address] [email or web address].YiBai-shopping/health/mental-health/kli-gfxsokfnpt-eyvedx-android-ap ps#our-picks How can I fix my acid [...] but are usually stronger and faster than H5ylipwgrw. Dietary habits for acid reflux Reduce or [...] Try Breakfast: 1 scrambled egg (75 calories) [place] muffin (67 calories) Calories per meal: 142 AM Snack & Fluids: *Spread out and sipped between meals 2 cups water (0 calories) 1 cup skim milk or unsweetened soy milk (90 calories) Calories per meal: 90 Lunch: 4 oz canned tuna in water (100 calories) 2 Tbsp fat free ortiz (20 calories) 1 slice low fat Burundian cheese (50 calories) 1 slice whole grain [...] after gastric sleeve surgery? (Full meal plan) ([employer]) .kml documented in this encounterThe Jewish Hospital11-18-2022 History of Present illness Narrative* Sabina Joy APRN.CNP - 01/02/2022 11:00 AM EST BMI OM PostOp Note - Virtual Visit January 02, 2022 [facility] VISIT This Team Access Model visit is [...] weight loss: 35 lbs or 14.58 % Averill weight: 70.3 kg (154 lb 14.5 oz) [...] which included preparing to see the patient, tubr-uz-ppgs patient care, completing clinical documentation, obtaining and/or reviewing separately obtained history, performing a medically appropriate examination, counseling and educating the pat ient/family/caregiver, independently interpreting results (not separately reported), and communicating results to the patient/family/caregiver. Follow up in 6 months. This visit was performed virtually due to the COVID-19 epidemic as an effort to protect patients and minimize exposure. documented in this encounterThe Jewish Hospital11-17-2022 History of Present illness Narrative* Marisabel Lynn, DIANE - 01/01/2022 2:41 PM EST 2Name: Abbey Garcia CCF#: [id number] Date: 01/01/2022 HUERTA 48 HR PH FOLLOW-UP The HUERTA monitor was received today via [employer] transport.. Test data from the biomass plant technician was downloaded. Events from the patient diary were inserted into the study for physician review. .Marisabel Lynn LPN documented in this encounterThe Jewish Hospital11-10-2022 History of Present illness Narrative* Marisabel Lynn LPN - 12/25/2021 11:28 AM EST Name: Abbey Garcia CCF#: [id number] Date: 12/25/2021 48hr HUERTA PH CAPSULE PLACEMENT [...] .Marisabel Lynn LPN documented in this encounterThe Jewish Hospital11-10-2022 Nurse Note* Raegan Sood RN - [...] In Department: GASTROENTEROLOGY documented in this encounterThe Jewish Hospital11-10-2022 History of Present illness Narrative* Mateusz Kraft Research Coordinator - 12/25/2021 9:45 AM ESTSummary: [id number] Study Title: CASE 3207 Genetic and Environmental [...] was provided to the consenting democrat. Mateusz Kraft Research Coordinator documented in this encounterThe Jewish Hospital10-05-2022 Miscellaneous Notes* Telephone Encounter - Li Kimball RN - 11/19/2021 10:57 AM EDT I called the patient and left a message for the patient to call [phone], option 0 to schedule the pH Impedence testing. Call back number provided for additional questions or concerns. Li Kimball RN documented in this encounterThe Jewish Hospital10-03-2022 History of Present illness Narrative* Deacon [...] mcg, Iron 45-60 mg and calcium citrate 0341-3410 mg/day PHYSICAL EXAMINATION General appearance: Well appearing, [...] the date of the service which included wilx-yp-berk patient care, completing clinical documentation, obtaining and/or reviewing separately obtained history, counseling and educating the patient/family/caregiver, and ordering medications, tests, or procedures. Deacon Kat MD documented in this encounterThe Jewish Hospital10-03-2022 Miscellaneous Notes* Telephone Encounter - Grecia Wallace - 11/17/2021 11:21 AM EDT Pharmacy fax requesting refills as follows: Patient scheduled for follow up visit Dec 24 Requested Prescriptions Pending Prescriptions Disp Refills famotidine (PEPCID) 40 mg tablet 90 tablet 1 Sig: Take 1 tablet by mouth once daily. Please review and advise. Grecia Wallace documented in this encounterThe Jewish Hospital09-06-2022 Miscellaneous Notes* Telephone Encounter - Cornel Conrad - 10/21/2021 11:14 AM EDT Do not schedule on 10/[address] Yousif. Cornel Conrad * Telephone Encounter - Cornel Conrad - 10/21/2021 10:10 AM EDT Called patient to reschedule 10/[address] Yousif will be out of the office in the afternoon that day. Per Dr. Yousif, patient can be rescheduled at [facility] on 10/21 between 4:15-5:30 PM or at [facility] on 10/24 from 8 AM - 12 PM. Do not double book slots. Cornel Conrad documented in this encounterThe Jewish Hospital09-06-2022 Miscellaneous Notes* Telephone Encounter - Slime Nickerson - 10/21/2021 8:25 AM EDT Called patient to reschedule 10/[address] Yousif will be out of the office in the afternoon that day. Per Dr. Yousif, patient can be rescheduled at [facility] on 10/21 between 4:15-5:30 PM or on 10/22 in [place] between 4-6 PM. Do not double book slots. documented in this encounterCleveland [id number] Instructions* Patient Instructions* Sabina Joy APRN.BETH - 10/09/2021 3:56 PM EDT Images from the original note were not included. Mutually Agreed Upon Goals Eating Plan: [employer] Pal BRE - Log intake 7 days per week. Replace skipped meals with a protein supplement. Bariatric Plate Method Activity: Walking as tolerated. Chair exercises Sleep: No electronic for 30 minutes prior to sleep 2 nights per week. Practice Sleep Hygiene. CPAP nightly Stress: BRE for meditation - Mindful Moments by [facility] [address] [place]. MyUnfold Timer https://www.Bolt.io/health/mental-health/tol-jcbzpbrpgq-ihdcpq-android-ap ps#our-picks Steps to Follow Bariatric Plate Total [...] own fruit infused price >> lemon or dot [place] with oranges, blackberries, strawberries and fresh mint, [...] with food. Calcium Citrate with Vitamin D 5911-1177 mg calcium - DO NOT TAKE WITH IRON OR MULTIVITAMIN Vitamin D3 - take 3,000 international unit(s) per day from all sources documented in this encounterThe Jewish Hospital08-25-2022 History of Present illness Narrative* Sabina Joy APRN.CNP - 10/09/2021 3:30 PM EDT BMI OM PostOp Clinic Note October 09, 2021 Virtual Visit (Audio/Visual) I have discussed the nature of this visit with the patient which will occur via [employer] (Phone, Virtual Visit) and she agrees [...] 32.28 kg/(m^2) Total weight loss: 42 lbs Averill weight: 70.3 kg (154 lb 14.5 oz) [...] which included preparing to see the patient, wfey-kd-pfaf patient care, completing clinical documentation, obtaining and/or reviewing separately obtained history, performing a medically appropriate examination, counseling and educating the pat ient/family/caregiver, ordering medications, tests, or procedures, independently interpreting results (not separately reported), and communicating results to the patient/family/caregiver. Medical Decision Making: Level: 1 - N/A Sabina Joy APRN.CNP documented in this encounterThe Jewish Hospital07-16-2022 Hospital Discharge instructions* Discharge Instructions* Pablo Atwood DO - 08/30/2021 4:11 AM EDT Please take all medications as prescribed and follow-up with your oral surgeon on Wednesday as scheduled. * Attachments The following attachments cannot be sent through Care Everywhere. * Tooth: Abscessed (Equatorial [place]) documented in this encounterBON [facility]ENTERKB [facility] Phone: 1(886) 292-170507-15-2022 Miscellaneous Notes* Telephone Encounter - Justine Shabazz PA-C - 08/29/2021 2:55 PM EDT Pharmacy generated request, refill not appropriate. Justine Shabazz PA-C documented in this encounterThe Jewish Hospital07-15-2022 Instructions* Patient Instructions* Justine Shabazz PA-C [...] carry free weights documented in this encounterThe Jewish Hospital07-15-2022 History of Present illness Narrative* Justine Shabazz PA-C - 08/29/2021 2:16 PM EDT POST OP [facility] VIRTUAL VISIT DOCUMENTATION NOTE This virtual visit was performed via video enabled technology, and the patient provided consent to be evaluated and managed using this virtual visit and video enabled technology. [employer] Platform: Fantasy Shopper Virtual Visit People present : Justine Shabazz [...] Shabazz, MS, PA-C documented in this encounterThe Jewish Hospital07-14-2022 Instructions* Patient Instructions* Xiomara Zhou RD - [...] Fusion One a Day multivitamin capsule PLUS 9127-3822 mg calcium citrate 5. Exercise: strive for [...] sooner if needed documented in this encounterThe Jewish Hospital07-14-2022 History of Present illness Narrative* Xiomara Zhou RD - 08/28/2021 7:54 AM EDT [facility] Nutrition Therapy: Virtual Consult Re-assessment This [...] Fluids: water (64 oz), gatorade zero, Body Ethan light Exercise: limited to PT due to [...] Rate: 1635 Energy needs for weight loss 0705-5720 (15-20 carina/kg current weight) Protein needs: 75-93 [...] Fusion One a Day multivitamin capsule PLUS 0677-8484 mg calcium citrate 5. Exercise: strive for [...] by: Xiomara Zhou RD documented in this encounterThe Jewish Hospital07-08-2022 Evaluation note* Encounter Date Diagnosis Assessment Notes Treatment Notes Treatment Clinical Notes Aug, PTSD (post-traumatic stress disorder) (ICD-10 - F43.10) [employer] Other [id number] Miscellaneous Notes* Telephone Encounter - Grecia Wallace - 08/22/2021 10:40 AM EDT Pharmacy fax requesting refills as follows: patient has a follow up visit 09/24/21 Pending Prescriptions Disp Refills OMEPRAZOLE 40 MG CAPSULE,DELAYED RELEASE 60 capsule 0 Sig: Take 1 capsule by mouth twice daily. ELIJAH: No Please review and advise. Grecia Munguia documented in this encounterThe Jewish Hospital07-03-2022 Evaluation note* Encounter Date Diagnosis Assessment [...] system will be more sensitive than normal. [employer] Other [id number] Miscellaneous Notes* Telephone Encounter - Justine Shabazz PA-C - 08/14/2021 2:51 PM EDT Pharmacy generated request, refill not appropriate. Justine Shabazz PA-C documented in this encounterThe [facility] Hospital06-17-2022 Instructions* Patient Instructions* Justine Shabazz PA-C [...] hyperextension(moving leg backward) and letting your feet turn down attendant when standing or laying flat- until 3 [...] Follow-up: 4 weeks documented in this encounterThe Jewish Hospital06-17-2022 History of Present illness Narrative* Justine Shabazz PA-C - 08/01/2021 10:55 AM EDT POST OP DISTANCE [facility] VIRTUAL VISIT DOCUMENTATION NOTE This virtual visit was performed via video enabled technology, and the patient provided consent to be evaluated and managed using this virtual visit and video enabled technology. [facility] Platform: Fantasy Shopper Virtual Visit People present : Justine Shabazz PA-C and Patient Time Spent for video encounter, record review and documentation: 15 minutes CHIEF COMPLAINT (CC): Post op right hip HISTORY OF PRESENT ILLNESS (HPI): 3 weeks s/p 1. right hip arthroscopy. 2. Acetabuloplasty CPT 03352 3. Labral repair. CPT 21219 4. Femoroplasty. CPT 88660 5. Capsular Closure DOS: 08/10/21 Denies systemic [...] will review MRI right knee (uploaded in [employer]). She has been referred[place] physician in [place] and was recommended to have osteotomy, she [...] hyperextension(moving leg backward) and letting your feet turn down attendant when standing or laying flat- until 3 [...] Shabazz MS, PA-C documented in this encounterThe Jewish Hospital05-20-2022 History of Present illness Narrative* Justine [...] Procedure: verified - questions answered Consent: in [facility] - not signed Imaging: outside MR an XR in [facility] with report scanned - views [...] Justine Shabazz PA-C documented in this encounterThe Jewish Hospital05-09-2022 History of Present illness Narrative* Justine Shabazz PA-C - 06/23/2021 4:02 PM EDT Surgery scheduling/order review encounter: Jace Duarte, ATC 06/23/21 patient update encounter for scheduling right hip scope reviewed: Images reviewed: XR No additional views necessary MRI labral tear Consent initiated Orders reviewed and signed. Chart routed to surgery schedulers Justine Shabazz PA-C * Jcae Duarte, AT - 06/18/2021 3:12 PM EDT Spoke with patient in the office regarding scheduling surgery for their right hip with Dr. Yousif Procedure: Right hip arthroscopy - labral repair Date: 07-10-21 XR: correct views Yes (if no updated XR must be done in radiology at the [facility] to ensure correct views.) Brace fitting: Yes - ( hip brace fit with [facility] Rep at [facility]) Pre op PT visit required [...] up) No. Pre op instructions sent via [employer]. DONAVAN Douglas documented in this encounterThe Jewish Hospital05-04-2022 History of Present illness Narrative* Kuldip Yousif MD - 06/18/2021 11:00 AM EDT x * Kuldip Yousif MD - 06/18/2021 10:23 AM EDT Images from the original note were not included. DEPARTMENT OF ORTHOPAEDICS Consultation as a request of Shanna June, ZEYAD [address] [facility] [address] Chief Complaint: Right hip pain HISTORY OF [...] Bilateral arthroscopic knee surgery- was catcher in [facility] PICC LINE INSERT/CONSULT 12/24/2020 VAGINAL DELIVERY AFTER [...] No history of dysuria, frequency or incontinence CLERICAL MANAGER: Negative for abnormal vaginal bleeding, abnormal vaginal [...] Past Histories independently gathered by the clinical pc support specialist and the remaining scribed note accurately describes my personal service to the patient. Kuldip Yousif MD documented in this encounterThe Jewish Hospital04-18-2022 History of Present illness Narrative* Lucie [...] will affect knee History of Present Illness Abbeypoppy Garcia is a 31 y.o. female, who [...] to that time. documented in this encounterOS[facility] * Encounter Date Diagnosis [...] intake. Mar, Other Asthma material was printed [employer] Other 12-14-2021 Evaluation note* Encounter Date Diagnosis [...] to be seen. Also always know the [facility] Emergency Number is 24 hours [...] surgeon after discussing options and treatment locations. [employer] Other 07-20-2021 History of Past illness Narrative* Problem Noted Date Resolved Date Obesity 09/03/2020 11/29/2020 Abdominal pain 02/01/2020 04/08/2020 Moderate episode of recurrent major depressive d isorder 11/21/2019 01/03/2020 Obesity, Class II, BMI 35-39.9 10/13/2019 1 Last Assessment & Plan: Assessment: BMI 38.74 documented as of this encounter (statuses as of 06/18/2021) [facility] of Past illness Narrative* Problem Noted Date Resolved Date Obesity 09/03/2020 11/29/2020 Abdominal pain 02/01/2020 04/08/2020 Moderate episode of recurrent major depressive d isorder 11/21/2019 01/03/2020 Obesity, Class II, BMI 35-39.9 10/13/2019 1 Last Assessment & Plan: Assessment: BMI 38.74 documented as of this encounter (statuses as of 06/23/2021) [facility] of Past illness Narrative* Problem Noted Date Resolved Date Obesity 09/03/2020 11/29/2020 Abdominal pain 02/01/2020 04/08/2020 Moderate episode of recurrent major depressive d isorder 11/21/2019 01/03/2020 Obesity, Class II, BMI 35-39.9 10/13/2019 1 Last Assessment & Plan: Assessment: BMI 38.74 documented as of this encounter (statuses as of 07/09/2021) [facility] of [facility] Narrative* Problem Noted Date Resolved Date Obesity 09/03/2020 11/29/2020 Abdominal pain 02/01/2020 04/08/2020 Moderate episode of recurrent major depressive d isorder 11/21/2019 01/03/2020 Obesity, Class II, BMI 35-39.9 10/13/2019 1 Last Assessment & Plan: Assessment: BMI 38.74 documented as of this encounter (statuses as of 07/15/2021) [facility] of [facility] Narrative* Problem Noted Date Resolved Date Obesity 09/03/2020 11/29/2020 Abdominal pain 02/01/2020 04/08/2020 Moderate episode of recurrent major depressive d isorder 11/21/2019 01/03/2020 Obesity, Class II, BMI 35-39.9 10/13/2019 1 Last Assessment & Plan: Assessment: BMI 38.74 documented as of this encounter (statuses as of 07/28/2021) [facility] Narrative* Problem Noted Date Resolved Date Obesity 09/03/2020 11/29/2020 Abdominal pain 02/01/2020 04/08/2020 Moderate episode of recurrent major depressive d isorder 11/21/2019 01/03/2020 Obesity, Class II, BMI 35-39.9 10/13/2019 1 Last Assessment & Plan: Assessment: BMI 38.74 documented as of this encounter (statuses as of 08/01/2021) [facility] of [facility] Narrative* Problem Noted Date Resolved Date Obesity 09/03/2020 11/29/2020 Abdominal pain 02/01/2020 04/08/2020 Moderate episode of recurrent major depressive d isorder 11/21/2019 01/03/2020 Obesity, Class II, BMI 35-39.9 10/13/2019 1 Last Assessment & Plan: Assessment: BMI 38.74 documented as of this encounter (statuses as of 08/14/2021) [facility] of [facility] illness Narrative* Problem Noted Date Resolved Date Obesity 09/03/2020 11/29/2020 Abdominal pain 02/01/2020 04/08/2020 Moderate episode of recurrent major depressive d isorder 11/21/2019 01/03/2020 Obesity, Class II, BMI 35-39.9 10/13/2019 1 Last Assessment & Plan: Assessment: BMI 38.74 documented as of this encounter (statuses as of 08/22/2021) [facility] of [facility] illness Narrative* Problem Noted Date Resolved Date Obesity 09/03/2020 11/29/2020 Abdominal pain 02/01/2020 04/08/2020 Moderate episode of recurrent major depressive d isorder 11/21/2019 01/03/2020 Obesity, Class II, BMI 35-39.9 10/13/2019 1 Last Assessment & Plan: Assessment: BMI 38.74 documented as of this encounter (statuses as of 08/28/2021) [facility] of [facility] Narrative* Problem Noted Date Resolved Date Obesity 09/03/2020 11/29/2020 Abdominal pain 02/01/2020 04/08/2020 Moderate episode of recurrent major depressive d isorder 11/21/2019 01/03/2020 Obesity, Class II, BMI 35-39.9 10/13/2019 1 Last Assessment & Plan: Assessment: BMI 38.74 documented as of this encounter (statuses as of 08/29/2021) [facility] of [facility] Narrative* Problem Noted Date Resolved Date Obesity 09/03/2020 11/29/2020 Abdominal pain 02/01/2020 04/08/2020 Moderate episode of recurrent major depressive d isorder 11/21/2019 01/03/2020 Obesity, Class II, BMI 35-39.9 10/13/2019 1 Last Assessment & Plan: Assessment: BMI 38.74 documented as of this encounter (statuses as of 08/29/2021) [address]20-2021 History of Past illness Narrative* Problem Noted Date Resolved Date Obesity 09/03/2020 11/29/2020 Abdominal pain 02/01/2020 04/08/2020 Moderate episode of recurrent major depressive d isorder 11/21/2019 01/03/2020 Obesity, Class II, BMI 35-39.9 10/13/2019 1 Last Assessment & Plan: Assessment: BMI 38.74 documented as of this encounter (statuses as of 09/02/2021) [facility] Narrative* Problem Noted Date Resolved Date Obesity 09/03/2020 11/29/2020 Abdominal pain 02/01/2020 04/08/2020 Moderate episode of recurrent major depressive d isorder 11/21/2019 01/03/2020 Obesity, Class II, BMI 35-39.9 10/13/2019 1 Last Assessment & Plan: Assessment: BMI 38.74 documented as of this encounter (statuses as of 10/09/2021) [facility]-20-2021 History of Past illness Narrative* Problem Noted Date Resolved Date Obesity 09/03/2020 11/29/2020 Abdominal pain 02/01/2020 04/08/2020 Moderate episode of recurrent major depressive d isorder 11/21/2019 01/03/2020 Obesity, Class II, BMI 35-39.9 10/13/2019 1 Last Assessment & Plan: Assessment: BMI 38.74 documented as of this encounter (statuses as of 10/09/2021) [facility]2021 History of Past illness Narrative* Problem Noted Date Resolved Date Obesity 09/03/2020 11/29/2020 Abdominal pain 02/01/2020 04/08/2020 Moderate episode of recurrent major depressive d isorder 11/21/2019 01/03/2020 Obesity, Class II, BMI 35-39.9 10/13/2019 1 Last Assessment & Plan: Assessment: BMI 38.74 documented as of this encounter (statuses as of 10/21/2021) [facility]2021 History of Past illness Narrative* Problem Noted Date Resolved Date Obesity 09/03/2020 11/29/2020 Abdominal pain 02/01/2020 04/08/2020 Moderate episode of recurrent major depressive d isorder 11/21/2019 01/03/2020 Obesity, Class II, BMI 35-39.9 10/13/2019 1 Last Assessment & Plan: Assessment: BMI 38.74 documented as of this encounter (statuses as of 11/18/2021) [facility] History of Past illness Narrative* Problem Noted Date Resolved Date Obesity 09/03/2020 11/29/2020 Abdominal pain 02/01/2020 04/08/2020 Moderate episode of recurrent major depressive d isorder 11/21/2019 01/03/2020 Obesity, Class II, BMI 35-39.9 10/13/2019 1 Last Assessment & Plan: Assessment: BMI 38.74 documented as of this encounter (statuses as of 11/18/2021) [facility] History of Past illness Narrative* Problem Noted Date Resolved Date Obesity 09/03/2020 11/29/2020 Abdominal pain 02/01/2020 04/08/2020 Moderate episode of recurrent major depressive d isorder 11/21/2019 01/03/2020 Obesity, Class II, BMI 35-39.9 10/13/2019 1 Last Assessment & Plan: Assessment: BMI 38.74 documented as of this encounter (statuses as of 11/19/2021) [address]20-2021 History of Past illness Narrative* Problem Noted Date Resolved Date Obesity 09/03/2020 11/29/2020 Abdominal pain 02/01/2020 04/08/2020 Moderate episode of recurrent major depressive d isorder 11/21/2019 01/03/2020 Obesity, Class II, BMI 35-39.9 10/13/2019 1 Last Assessment & Plan: Assessment: BMI 38.74 documented as of this encounter (statuses as of 11/19/2021) [address]20-2021 History of Past illness Narrative* Problem Noted Date Resolved Date Obesity 09/03/2020 11/29/2020 Abdominal pain 02/01/2020 04/08/2020 Moderate episode of recurrent major depressive d isorder 11/21/2019 01/03/2020 Obesity, Class II, BMI 35-39.9 10/13/2019 1 Last Assessment & Plan: Assessment: BMI 38.74 documented as of this encounter (statuses as of 12/17/2021) [address]20-2021 History of Past illness Narrative* Problem Noted Date Resolved Date Obesity 09/03/2020 11/29/2020 Abdominal pain 02/01/2020 04/08/2020 Moderate episode of recurrent major depressive d isorder 11/21/2019 01/03/2020 Obesity, Class II, BMI 35-39.9 10/13/2019 1 Last Assessment & Plan: Assessment: BMI 38.74 documented as of this encounter (statuses as of 12/25/2021) [address]20-2021 History of Past illness Narrative* Problem Noted Date Resolved Date Obesity 09/03/2020 11/29/2020 Abdominal pain 02/01/2020 04/08/2020 Moderate episode of recurrent major depressive d isorder 11/21/2019 01/03/2020 Obesity, Class II, BMI 35-39.9 10/13/2019 1 Last Assessment & Plan: Assessment: BMI 38.74 documented as of this encounter (statuses as of 12/25/2021) [facility] History of Past illness Narrative* Problem Noted Date Resolved Date Obesity 09/03/2020 11/29/2020 Abdominal pain 02/01/2020 04/08/2020 Moderate episode of recurrent major depressive d isorder 11/21/2019 01/03/2020 Obesity, Class II, BMI 35-39.9 10/13/2019 1 Last Assessment & Plan: Assessment: BMI 38.74 documented as of this encounter (statuses as of 12/25/2021) [facility] History of Past illness Narrative* Problem Noted Date Resolved Date Obesity 09/03/2020 11/29/2020 Abdominal pain 02/01/2020 04/08/2020 Moderate episode of recurrent major depressive d isorder 11/21/2019 01/03/2020 Obesity, Class II, BMI 35-39.9 10/13/2019 1 Last Assessment & Plan: Assessment: BMI 38.74 documented as of this encounter (statuses as of 12/26/2021) [facility] History of Past illness Narrative* Problem Noted Date Resolved Date Obesity 09/03/2020 11/29/2020 Abdominal pain 02/01/2020 04/08/2020 Moderate episode of recurrent major depressive d isorder 11/21/2019 01/03/2020 Obesity, Class II, BMI 35-39.9 10/13/2019 1 Last Assessment & Plan: Assessment: BMI 38.74 documented as of this encounter (statuses as of 01/01/2022) [facility] History of Past illness Narrative* Problem Noted Date Resolved Date Obesity 09/03/2020 11/29/2020 Abdominal pain 02/01/2020 04/08/2020 Moderate episode of recurrent major depressive d isorder 11/21/2019 01/03/2020 Obesity, Class II, BMI 35-39.9 10/13/2019 1 Last Assessment & Plan: Assessment: BMI 38.74 documented as of this encounter (statuses as of 01/02/2022) [facility] History of Past illness Narrative* Problem Noted Date Resolved Date Obesity 09/03/2020 11/29/2020 Abdominal pain 02/01/2020 04/08/2020 Moderate episode of recurrent major depressive d isorder 11/21/2019 01/03/2020 Obesity, Class II, BMI 35-39.9 10/13/2019 1 Last Assessment & Plan: Assessment: BMI 38.74 documented as of this encounter (statuses as of 01/06/2022) [facility] History of Past illness Narrative* Problem Noted Date Resolved Date Obesity 09/03/2020 11/29/2020 Abdominal pain 02/01/2020 04/08/2020 Moderate episode of recurrent major depressive d isorder 11/21/2019 01/03/2020 Obesity, Class II, BMI 35-39.9 10/13/2019 1 Last Assessment & Plan: Assessment: BMI 38.74 documented as of this encounter (statuses as of 01/20/2022) [facility] History of Past illness Narrative* Problem Noted Date Resolved Date Obesity 09/03/2020 11/29/2020 Abdominal pain 02/01/2020 04/08/2020 Moderate episode of recurrent major depressive d isorder 11/21/2019 01/03/2020 Obesity, Class II, BMI 35-39.9 10/13/2019 1 Last Assessment & Plan: Assessment: BMI 38.74 documented as of this encounter (statuses as of 01/28/2022) [facility] History of Past illness Narrative* Problem Noted Date Resolved Date Obesity 09/03/2020 11/29/2020 Abdominal pain 02/01/2020 04/08/2020 Moderate episode of recurrent major depressive d isorder 11/21/2019 01/03/2020 Obesity, Class II, BMI 35-39.9 10/13/2019 1 Last Assessment & Plan: Assessment: BMI 38.74 documented as of this encounter (statuses as of 02/02/2022) [facility] History of Past illness Narrative* Problem Noted Date Resolved Date Obesity 09/03/2020 11/29/2020 Abdominal pain 02/01/2020 04/08/2020 Moderate episode of recurrent major depressive d isorder 11/21/2019 01/03/2020 Obesity, Class II, BMI 35-39.9 10/13/2019 1 Last Assessment & Plan: Assessment: BMI 38.74 documented as of this encounter (statuses as of 02/02/2022) [facility] History of Past illness Narrative* Problem Noted Date Resolved Date Obesity 09/03/2020 11/29/2020 Abdominal pain 02/01/2020 04/08/2020 Moderate episode of recurrent major depressive d isorder 11/21/2019 01/03/2020 Obesity, Class II, BMI 35-39.9 10/13/2019 1 Last Assessment & Plan: Assessment: BMI 38.74 documented as of this encounter (statuses as of 02/03/2022) [facility] History of Past illness Narrative* Problem Noted Date Resolved Date Obesity 09/03/2020 11/29/2020 Abdominal pain 02/01/2020 04/08/2020 Moderate episode of recurrent major depressive d isorder 11/21/2019 01/03/2020 Obesity, Class II, BMI 35-39.9 10/13/2019 1 Last Assessment & Plan: Assessment: BMI 38.74 documented as of this encounter (statuses as of 02/03/2022) [facility] History of Past illness Narrative* Problem Noted Date Resolved Date Obesity 09/03/2020 11/29/2020 Abdominal pain 02/01/2020 04/08/2020 Moderate episode of recurrent major depressive d isorder 11/21/2019 01/03/2020 Obesity, Class II, BMI 35-39.9 10/13/2019 1 Last Assessment & Plan: Assessment: BMI 38.74 documented as of this encounter (statuses as of 02/04/2022) [facility] History of Past illness Narrative* Problem Noted Date Resolved Date Obesity 09/03/2020 11/29/2020 Abdominal pain 02/01/2020 04/08/2020 Moderate episode of recurrent major depressive d isorder 11/21/2019 01/03/2020 Obesity, Class II, BMI 35-39.9 10/13/2019 1 Last Assessment & Plan: Assessment: BMI 38.74 documented as of this encounter (statuses as of 02/06/2022) [facility] History of Past illness Narrative* Problem Noted Date Resolved Date Obesity 09/03/2020 11/29/2020 Abdominal pain 02/01/2020 04/08/2020 Moderate episode of recurrent major depressive d isorder 11/21/2019 01/03/2020 Obesity, Class II, BMI 35-39.9 10/13/2019 1 Last Assessment & Plan: Assessment: BMI 38.74 documented as of this encounter (statuses as of 02/15/2022) [facility] History of Past illness Narrative* Problem Noted Date Resolved Date Obesity 09/03/2020 11/29/2020 Abdominal pain 02/01/2020 04/08/2020 Moderate episode of recurrent major depressive d isorder 11/21/2019 01/03/2020 Obesity, Class II, BMI 35-39.9 10/13/2019 1 Last Assessment & Plan: Assessment: BMI 38.74 documented as of this encounter (statuses as of 02/18/2022) [facility] History of Past illness Narrative* Problem Noted Date Resolved Date Obesity 09/03/2020 11/29/2020 Abdominal pain 02/01/2020 04/08/2020 Moderate episode of recurrent major depressive d isorder 11/21/2019 01/03/2020 Obesity, Class II, BMI 35-39.9 10/13/2019 1 Last Assessment & Plan: Assessment: BMI 38.74 documented as of this encounter (statuses as of 03/05/2022) [facility] History of Past illness Narrative* Problem Noted Date Resolved Date Obesity 09/03/2020 11/29/2020 Abdominal pain 02/01/2020 04/08/2020 Moderate episode of recurrent major depressive d isorder 11/21/2019 01/03/2020 Obesity, Class II, BMI 35-39.9 10/13/2019 1 Last Assessment & Plan: Assessment: BMI 38.74 documented as of this encounter (statuses as of 03/05/2022) [facility] History of Past illness Narrative* Problem Noted Date Resolved Date Obesity 09/03/2020 11/29/2020 Abdominal pain 02/01/2020 04/08/2020 Moderate episode of recurrent major depressive d isorder 11/21/2019 01/03/2020 Obesity, Class II, BMI 35-39.9 10/13/2019 1 Last Assessment & Plan: Assessment: BMI 38.74 documented as of this encounter (statuses as of 03/07/2022) [facility] History of Past illness Narrative* Problem Noted Date Resolved Date Obesity 09/03/2020 11/29/2020 Abdominal pain 02/01/2020 04/08/2020 Moderate episode of recurrent major depressive d isorder 11/21/2019 01/03/2020 Obesity, Class II, BMI 35-39.9 10/13/2019 1 Last Assessment & Plan: Assessment: BMI 38.74 documented as of this encounter (statuses as of 03/30/2022) [facility] History of Past illness Narrative* Problem Noted Date Resolved Date Obesity 09/03/2020 11/29/2020 Abdominal pain 02/01/2020 04/08/2020 Moderate episode of recurrent major depressive d isorder 11/21/2019 01/03/2020 Obesity, Class II, BMI 35-39.9 10/13/2019 1 Last Assessment & Plan: Assessment: BMI 38.74 documented as of this encounter (statuses as of 06/14/2022) [facility] History of Past illness Narrative* Problem Noted Date Resolved Date Obesity 09/03/2020 11/29/2020 Abdominal pain 02/01/2020 04/08/2020 Moderate episode of recurrent major depressive d isorder 11/21/2019 01/03/2020 Obesity, Class II, BMI 35-39.9 10/13/2019 1 Last Assessment & Plan: Assessment: BMI 38.74 documented as of this encounter (statuses as of 06/18/2022) [facility]21 Emergency department Note* Nabila Childs RN [...] 07/02/2020 2:36 PM EDT Emergency Department Report [facility] EMERGENCY [facility]MENT Service Date:.07/02/20 PCP: [...] Social Gatherings with Friends and Family: Attends [employer] Services: Active Member of Clubs or Organizations: [...] POSITIVE ANTIBODY SCREEN NEGATIVE ARM BAND NUMBER [id number] URINALYSIS, MACRO Result Value Ref Range COLOR, [...] H&H is stable. She was started on O'Brien and Zofran. Follow up with her [employer]. Chart was 5 to the [employer]'s office. 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 She is discharged [...] bleeding with large clots documented in this [facility]07-24-2020 Evaluation + Plan note Future Appointments Appointment Date:07/23/2022 01:00:00 PM Scheduled [facility]: [facility] Type:[facility] Echo () Appointment Date:09/07/2022 11:00:00 AM Scheduled Provider:Jamil PRICE MD Location:[facility] Appointment Type:URO New Patient Future Scheduled Tests Radiology* US Renal 06/10/22 * Echo Transthoracic Complete 07/23/22 [facility]05-24-2020 Evaluation + Plan note Future Appointments Appointment Date:07/07/2022 11:00:00 AM Scheduled Provider: [facility] Appoint[facility] Type:CV Echo (FT) Appointment Date:07/08/2022 01:00:00 PM Scheduled Provider:Chetna Jack MD [facility] Type:Cardiology New Patient () Future Scheduled Tests Radiology* US Renal 06/10/22 * Echo Transthoracic [facility]07[facility] Future Appointments Appointment Date:06/11/2022 03:00:00 PM Scheduled Provider:Chetna Jack MD [facility] Type:Cardiology New Patient (FT) Future Scheduled Tests Radiology* US Renal 06[facility]10/[facility] Future Appointments Appointment Date:09/07/2022 11:00:00 AM Scheduled Provider:Jamil PRICE MD Location:[facility] Appointment Type:URO New Patient Future Scheduled Tests Radiology* US Renal [facility]10/[facility] Future Appointments Appointment Date:01/20/2023 10:00:00 AM Scheduled Provider:Rajni Rouse MD Location:[facility] Appointment Type:URO Office Visit Future Scheduled Tests Radiology* US Renal 06/10/22 [facility] evaluation + Plan note Future Appointments Appointment Date:10/21/2022 02:20:00 PM Scheduled Provider:Jaquan Paula Location:[facility] Appointment Type:FM ER/Hospital Follow Up Appointment Date:11/20/2022 02:40:00 PM Scheduled Provider: Location:[facility] Appointment Type:FM Lab Draw Appointment Date:01/20/2023 10:00:00 AM Scheduled Provider:Rajni Rouse MD Location:[facility] Appointment Type:URO Office Visit Future Scheduled Tests Laboratory* T3 Free 10/07/22 * Thyroid Stimulating Hormone 10/07/22 * Free T4 10/07/22 Radiology* US Renal [facility]10/[facility] Future Appointments Appointment Date:11/19/2022 02:30:00 PM Scheduled Provider:Odilon Strange MD [facility] App[facility] Type:Cardiology New Patient (FT) Appointment Date:01/20/2023 10:00:00 AM Scheduled Provider:Rajni Rouse MD Location:[facility] Appointment Type:URO Office Visit Future Scheduled Tests Radiology* US Renal 06/10/22 [facility] Future Appointments Appointment Date:07/13/2023 08:20:00 AM Scheduled Provider:OLGA PRAKASH PA-C Location:[facility] Appointment Type:URO Office Visit Appointment Date:08/04/2023 09:45:00 AM Scheduled Provider:Rajni Rouse MD Location:[facility] Appointment Type:URO Office Visit Future Scheduled Tests Radiology* US Renal 06/10/22 [facility] Diagnosis Complex ovarian cyst- Primary Other and unspecified ovarian cyst Uterine leiomyoma, unspecified location [facility] Diagnosis Contusion of right thumb without damage to nail, initial encounter- Primary documented in this encounter [employer] Phone: [email or web address] note* Diagnosis 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 [facility] Diagnosis Acetabular labrum tear, right, initial encounter- Primary [facility]* Diagnosis Tear of right acetabular labrum, subsequent encounter- Primary documented in this encounter [facility] note* Diagnosis Tear of right acetabular labrum, subsequent encounter- Primary Tear of right acetabular labrum, subsequent encounter documented in this encounter [facility]* Diagnosis Generalized abdominal pain- Primary Abdominal pain, generalized documented in this encounter [employer] Phone: [email or web address] note* Diagnosis Tear of right acetabular labrum, subsequent encounter- Primary documented in this encounter [facility] [id number] [employer] Other Evaluation noteNo InformationPerfect Escapes Other Evaluation note* Diagnosis S/P laparoscopic sleeve gastrectomy- Primary Bariatric surgery status Obesity, Class I, BMI 30-34.9 Obesity, unspecified Dietary counseling and surveillance Dietary surveillance and counseling documented in this encounter [facility]* Diagnosis Tear of right acetabular labrum, subsequent encounter- Primary documented in this encounter [facility]* Diagnosis Dental infection- Primary Acute apical periodontitis of pulpal origin documented in this encounter [employer]: evaluation note* Diagnosis Gastroesophageal reflux disease, unspecified whether esophagitis present- Primary Bariatric surgery status Weight disorder Other symptoms concerning nutrition, metabolism, and development Class 1 obesity with serious comorbidity and body mass index (BMI) of 31.0 to 31.9 in adult, unspecified obesity type S/P laparoscopic sleeve gastrectomy Bariatric surgery status Dietary counseling and surveillance Dietary surveillance and counseling documented in this encounter [facility]* Diagnosis Gastroesophageal reflux disease without esophagitis- Primary Esophageal reflux documented in this encounter [facility]* Diagnosis Gastroesophageal reflux disease without esophagitis- Primary Esophageal reflux S/P laparoscopic sleeve gastrectomy Bariatric surgery status [facility] Diagnosis Regurgitation of food- Primary Gastroesophageal reflux disease, unspecified whether esophagitis present documented in this encounter [facility]* Diagnosis Regurgitation of food Gastroesophageal reflux disease, unspecified whether esophagitis present documented in this encounter [facility]* Diagnosis Gastroesophageal reflux disease without esophagitis Esophageal reflux documented in this encounter [facility]* Diagnosis Gastroesophageal reflux disease, unspecified whether esophagitis present- Primary [facility]* Diagnosis Gastroesophageal reflux disease with esophagitis without hemorrhage- Primary RICHAR (obstructive sleep apnea) Obstructive sleep apnea (adult) (pediatric) Class 1 obesity with serious comorbidity and body mass index (BMI) of 33.0 to 33.9 in adult, unspecified obesity type S/P laparoscopic sleeve gastrectomy Bariatric surgery status Weight disorder Other symptoms concerning nutrition, metabolism, and development documented in this encounter [facility] note* Diagnosis Pre-op evaluation- Primary Preoperative [...] without hemorrhage [facility] Diagnosis S/P bariatric surgery- Primary Bariatric surgery status Postoperative pain Other acute postoperative pain Primary osteoarthritis involving multiple joints [facility]* Diagnosis S/P gastric surgery- Primary Other postprocedural status Dietary counseling Dietary surveillance and counseling documented in this encounter [facility]* Diagnosis Postoperative pain Other acute postoperative pain documented in this encounter [facility] note* Diagnosis Acetabular labrum tear, right, subsequent encounter- Primary [facility]* Diagnosis Esophageal dysphagia- Primary Dysphagia, pharyngoesophageal phase S/P gastric bypass Bariatric surgery status Postoperative malabsorption Other and unspecified postsurgical nonabsorption documented in this encounter [facility]* Diagnosis Esophageal dysphagia Dysphagia, pharyngoesophageal phase S/P gastric bypass Bariatric surgery status S/P bariatric surgery Bariatric surgery status [facility] Diagnosis Polyarthralgia- Primary Pain in joint, multiple sites Malaise and fatigue Other malaise and fatigue Subjective fever S/P laparoscopic sleeve gastrectomy Bariatric surgery status History of syncope Other specified personal history presenting hazards to health History of adrenal insufficiency Personal history of other endocrine, metabolic, and immunity disorders Hypothyroidism, unspecified type [facility]* Diagnosis Encounter to discuss test results- Primary Other specified counseling NO SHOW documented in this encounter [facility] note* Diagnosis Constipation, unspecified constipation type- Primary Nausea Nausea alone Rash of face Rash and other nonspecific skin eruption Enlarged lymph nodes Enlargement of lymph nodes documented in this encounter [facility]* Diagnosis Vernal conjunctivitis of both eyes- Primary [facility]* Diagnosis Rash and nonspecific skin eruption- Primary Rash and other nonspecific skin eruption Pain in eye, unspecified laterality Facial edema Edema [facility]* Diagnosis Encounter for surgical aftercare following surgery of digestive system- Primary Aftercare following surgery of the teeth, oral cavity and digestive system, NEC Impaired intestinal absorption Unspecified intestinal malabsorption Esophageal dysphagia Dysphagia, pharyngoesophageal phase Gastroesophageal reflux disease, unspecified whether esophagitis present S/P bariatric surgery Bariatric surgery status [facility]* Diagnosis ARSALAN (generalized anxiety disorder)- Primary Generalized anxiety disorder Panic disorder without agoraphobia Moderate recurrent major depression (HCC) Major depressive disorder, recurrent episode, moderate [facility]* Diagnosis Postoperative malabsorption- Primary Other and unspecified postsurgical nonabsorption S/P gastric bypass Bariatric surgery status Overweight (BMI 25.0-29.9) Overweight Dietary counseling and surveillance Dietary surveillance and counseling documented in this encounter [facility] note* Diagnosis ARSALAN (generalized anxiety disorder)- Primary Generalized anxiety disorder Panic disorder without agoraphobia Moderate recurrent major depression (HCC) Major depressive disorder, recurrent episode, moderate documented in this encounter [facility] note* Diagnosis Epigastric pain- Primary Abdominal pain, epigastric documented in this encounter [facility] note* Diagnosis Back strain, initial encounter- Primary documented in this encounter [facility] note* Diagnosis Generalized abdominal pain- Primary Abdominal pain, generalized documented in this encounter [facility] note* Diagnosis Nausea- Primary Nausea alone documented in this encounter [facility] note* Diagnosis Gastroesophageal reflux disease, unspecified whether esophagitis present documented in this encounter [facility] note* Diagnosis Generalized anxiety disorder documented in this encounter [facility] note* Diagnosis Nausea- Primary Nausea alone RUQ pain Abdominal pain, right upper quadrant History of cholecystectomy Other acquired absence of organ documented in this encounter [facility] note* Diagnosis Dehydration- Primary RUQ pain Abdominal pain, right upper quadrant documented in this encounter [facility] note* Diagnosis Right knee pain, unspecified chronicity- Primary documented in this encounter [facility] note* Diagnosis Post-operative pain- Primary Other acute postoperative pain 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 documented in this encounter [facility] note* Diagnosis Dehydration- Primary Nausea Nausea alone RUQ pain Abdominal pain, right upper quadrant documented in this encounter [facility] note* Diagnosis RUQ pain- Primary Abdominal pain, right upper quadrant Chronic nausea Nausea alone documented in this encounter [facility] note* Diagnosis Chronic nausea Nausea alone RUQ pain Abdominal pain, right upper quadrant documented in this encounter [facility] note* Diagnosis Abdominal pain, unspecified abdominal location- Primary documented in this encounter [facility] note* Diagnosis Generalized abdominal pain- Primary Abdominal pain, generalized documented in this encounter [facility] note* Diagnosis Nausea Nausea alone RUQ pain Abdominal pain, right upper quadrant History of cholecystectomy Other acquired absence of organ documented in this encounter [facility] note* Diagnosis Median arcuate ligament syndrome (HCC)- Primary Celiac artery compression syndrome Neuralgia and neuritis Neuralgia, neuritis, and radiculitis, unspecified documented in this encounter [facility] note* Diagnosis Chronic pain syndrome- Primary 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 documented in this encounter [facility] note* Diagnosis Median arcuate ligament syndrome (HCC)- Primary Celiac artery compression syndrome 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 documented in this encounter [facility] noteNo assessment information availableCherrington [facility] Work Phone: Evaluation note* Diagnosis Median arcuate ligament syndrome (CMS/HCC)- Primary Celiac artery compression syndrome PONV (postoperative nausea and vomiting) Nausea with vomiting RICHAR (obstructive sleep apnea) Obstructive sleep apnea (adult) (pediatric) Asthma Unspecified asthma Anxiety Anxiety state, unspecified Osteoarthritis Osteoarthrosis, unspecified whether generalized or localized, unspecified site Depression Depressive disorder, not elsewhere classified documented in this encounter [facility] Work Phone: Evaluation note* Diagnosis Abdominal pain- Primary Abdominal pain, unspecified site Abdominal pain Abdominal pain, unspecified site Nausea and vomiting, unspecified vomiting type History of gastric bypass Median arcuate ligament syndrome (CMS/HCC) Celiac artery compression syndrome documented in this encounter [facility] Work Phone: Evaluation note* Diagnosis Median arcuate ligament syndrome (CMS/HCC)- Primary Celiac artery compression syndrome documented in this encounter [facility] Work Phone: Evaluation note* Diagnosis Bariatric surgery status- Primary Dietary zinc deficiency Mineral deficiency, not elsewhere classified Vitamin D deficiency Unspecified vitamin D deficiency documented in this encounter [facility] note* Diagnosis Gastroesophageal reflux disease, unspecified whether esophagitis present- Primary Constipation, unspecified constipation type documented in this encounter [facility] note* Diagnosis Nausea and vomiting, unspecified vomiting type- Primary documented in this encounter [facility] note* Diagnosis Neuralgia and neuritis- Primary Neuralgia, neuritis, and radiculitis, unspecified Gastroesophageal reflux disease without esophagitis Esophageal reflux 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 S/P gastric bypass Bariatric surgery status documented in this encounter [facility] note* Diagnosis ARSALAN (generalized anxiety disorder)- Primary Generalized anxiety disorder Panic disorder without agoraphobia Moderate recurrent major depression (HCC) Major depressive disorder, recurrent episode, moderate documented in this encounter [facility] note* Diagnosis Sudden onset of severe abdominal pain- Primary Abdominal pain, unspecified site Nausea and vomiting, unspecified vomiting type PEG (percutaneous endoscopic gastrostomy) status (HCC) Gastrostomy status [facility] Diagnosis Median arcuate ligament syndrome (CMS-HCC)- Primary Celiac artery compression syndrome documented in this encounter [facility] Work Phone: Evaluation note* Diagnosis Epigastric pain- [...] Nausea with vomiting documented in this encounter [facility] Work Phone: Evaluation note* Diagnosis Urinary frequency- Primary Urgency of urination [facility] Diagnosis Screening for genitourinary condition Screening for other and unspecified genitourinary condition [facility] Diagnosis ARSALAN (generalized anxiety disorder)- Primary Generalized anxiety disorder Panic disorder without agoraphobia Moderate recurrent major depression (HCC) Major depressive disorder, recurrent episode, moderate [facility] Diagnosis Onset Date Resolution Status Intractable vomiting with nausea acute Small bowel obstruction acin e [facility] Work Phone: Evaluation note* Diagnosis Onset Date Resolution Status Intractable vomiting with nausea acute [facility] Status post gastric bypass for obesity acute [facility] Work Phone: Evaluation note* Diagnosis Chronic nausea- Primary Nausea alone History of laparoscopic partial gastrectomy Personal history of surgery to other organs History of sphincterotomy of sphincter of Oddi Other postprocedural status 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 [facility] Diagnosis Chronic abdominal pain- Primary Abdominal pain, unspecified site Gastroesophageal reflux disease without esophagitis Esophageal reflux Neuralgia and neuritis Neuralgia, neuritis, and radiculitis, unspecified 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 S/P gastric bypass Bariatric surgery status documented in this encounter [facility] note* Diagnosis Gastroesophageal reflux disease without esophagitis Esophageal reflux Neuralgia and neuritis Neuralgia, neuritis, and radiculitis, unspecified 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 Chronic abdominal pain Abdominal pain, unspecified site S/P gastric bypass Bariatric surgery status documented in this encounter [facility] note* Diagnosis Gastroesophageal reflux disease without esophagitis Esophageal reflux Neuralgia and neuritis Neuralgia, neuritis, and radiculitis, unspecified 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 Chronic abdominal pain Abdominal pain, unspecified site S/P gastric bypass Bariatric surgery status documented in this encounter [facility] note* Diagnosis Neuralgia and neuritis- Primary Neuralgia, neuritis, and radiculitis, unspecified 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 documented in this encounter [facility] note* Diagnosis Gastroesophageal reflux disease without esophagitis Esophageal reflux Neuralgia and neuritis Neuralgia, neuritis, and radiculitis, unspecified 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 Chronic abdominal pain Abdominal pain, unspecified site S/P gastric bypass Bariatric surgery status documented in this encounter [facility] note* Diagnosis Gastroesophageal reflux disease without esophagitis Esophageal reflux Neuralgia and neuritis Neuralgia, neuritis, and radiculitis, unspecified 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 Chronic abdominal pain Abdominal pain, unspecified site S/P gastric bypass Bariatric surgery status documented in this encounter [facility] note* Diagnosis Gastroesophageal reflux disease, unspecified whether esophagitis present documented in this encounter [facility] note* Diagnosis Gastroesophageal reflux disease, unspecified whether esophagitis present documented in this encounter [facility] note* Diagnosis Gastroesophageal reflux disease, unspecified whether esophagitis present- Primary documented in this encounter [facility] note* Diagnosis Chronic abdominal pain- Primary Abdominal pain, unspecified site History of gastric bypass Bariatric surgery status Pre-op testing Preoperative examination, unspecified Chronic abdominal pain Abdominal pain, unspecified site History of gastric bypass Bariatric surgery status Pre-op testing Preoperative examination, unspecified documented in this encounter [facility] note* Diagnosis Multiple gastric ulcers- Primary LUQ pain Abdominal pain, left upper quadrant Gastroesophageal reflux disease with esophagitis without hemorrhage Constipation, unspecified constipation type Chronic abdominal pain Abdominal pain, unspecified site History of gastric bypass Bariatric surgery status Pre-op testing Preoperative examination, unspecified documented in this encounter [facility] note* Diagnosis History of gastric bypass- Primary Bariatric surgery status Left upper quadrant abdominal pain Chronic abdominal pain Abdominal pain, unspecified site History of gastric bypass Bariatric surgery status Pre-op testing Preoperative examination, unspecified documented in this encounter [facility] note* Diagnosis Gastroesophageal reflux disease without esophagitis Esophageal reflux Neuralgia and neuritis Neuralgia, neuritis, and radiculitis, unspecified 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 Chronic abdominal pain Abdominal pain, unspecified site S/P gastric bypass Bariatric surgery status Chronic abdominal pain Abdominal pain, unspecified site History of gastric bypass Bariatric surgery status Pre-op testing Preoperative examination, unspecified documented in this encounter [facility] note* Diagnosis ARSALAN (generalized anxiety disorder)- Primary Generalized anxiety disorder Panic disorder without agoraphobia Moderate recurrent major depression (HCC) Major depressive disorder, recurrent episode, moderate Situational stress Other psychological or physical stress, not elsewhere classified Chronic abdominal pain Abdominal pain, unspecified site History of gastric bypass Bariatric surgery status Pre-op testing Preoperative examination, unspecified documented in this encounter [facility] note* Diagnosis Pre-op evaluation- Primary Preoperative examination, unspecified Class 3 severe obesity due to excess calories with serious comorbidity and body mass index (BMI) of 40.0 to 44.9 in adult ([facility]) Essential hypertension Unspecified essential hypertension Gastroesophageal reflux [...] Tear of right acetabular labrum, subsequent encounter [facility] on CPAP Obstructive sleep apnea (adult) [...] status Bariatric surgery status Jejunostomy tube present (HCC) Status of other artificial opening of gastrointestinal tract Acquired hypothyroidism Unspecified hypothyroidism Anemia, unspecified type Anxiety and depression Dysthymic disorder Chronic abdominal pain Abdominal pain, unspecified site Current use of steroid medication Chronic abdominal pain Abdominal pain, unspecified site History of gastric bypass Bariatric surgery status Pre-op testing Preoperative examination, unspecified * Assessment & Plan Note - Chantal Brown APRN.CNP - 10/06/2023 4:11 PM EDT Associated Problem(s): [...] HTN Assessment: [facility] Diagnosis Pre-op evaluation- Primary Preoperative examination, unspecified Class 3 severe obesity due to excess calories with serious comorbidity and body mass index (BMI) of 40.0 to 44.9 in adult ([facility]) Essential hypertension Unspecified essential hypertension Gastroesophageal reflux [...] Tear of right acetabular labrum, subsequent encounter [facility] on CPAP Obstructive sleep apnea (adult) [...] status Bariatric surgery status Jejunostomy tube present ([facility]) Status of other artificial opening of gastrointestinal tract Acquired hypothyroidism Unspecified hypothyroidism Anemia, unspecified type Anxiety and depression Dysthymic disorder Chronic abdominal pain Abdominal pain, unspecified site Current use of steroid medication Feeding difficulties- Primary Feeding difficulties and mismanagement On total parenteral nutrition (TPN) Other specified conditions influencing health status documented in this encounter [facility] note* Diagnosis Pre-op evaluation- Primary Preoperative examination, unspecified Class 3 severe obesity due to excess calories with serious comorbidity and body mass index (BMI) of 40.0 to 44.9 in adult ([facility]) Essential hypertension Unspecified essential hypertension Gastroesophageal reflux [...] Tear of right acetabular labrum, subsequent encounter [facility]AR on CPAP Obstructive sleep apnea (adult) [...] status Bariatric surgery status Jejunostomy tube present ([facility]) Status of other artificial opening of gastrointestinal tract Acquired hypothyroidism Unspecified hypothyroidism Anemia, unspecified type Anxiety and depression Dysthymic disorder Chronic abdominal pain Abdominal pain, unspecified site Current use of steroid medication Abnormal defecation- Primary Other symptoms involving digestive system S/P hysterectomy Acquired absence of both cervix and uterus Endometriosis Endometriosis, site unspecified Constipation, unspecified constipation type Hypoglycemia Hypoglycemia, unspecified Adrenal insufficiency (HCC) Glucocorticoid deficiency On total parenteral nutrition (TPN) Other specified conditions influencing health status On total parenteral nutrition (TPN) Other specified conditions influencing health status documented in this encounter [facility] note* Diagnosis Pre-op evaluation- Primary Preoperative [...] Tear of right acetabular labrum, subsequent encounter [facility] on CPAP Obstructive sleep apnea (adult) [...] status Bariatric surgery status Jejunostomy tube present (HCC) Status of other artificial opening of gastrointestinal tract Acquired hypothyroidism Unspecified hypothyroidism Anemia, unspecified type Anxiety and depression Dysthymic disorder Chronic abdominal pain Abdominal pain, unspecified site Current use of steroid medication S/P gastrointestinal surgery, follow-up exam- Primary Follow-up examination, following other surgery [facility] Diagnosis Pre-op evaluation- Primary Preoperative examination, unspecified Class 3 severe obesity due to excess calories with serious comorbidity and body mass index (BMI) of 40.0 to 44.9 in adult ([facility]) Essential hypertension Unspecified essential hypertension Gastroesophageal reflux [...] Tear of right acetabular labrum, subsequent encounter R[facility]AR on CPAP Obstructive sleep apnea (adult) [...] status Bariatric surgery status Jejunostomy tube present (HCC) Status of other artificial opening of gastrointestinal tract Acquired hypothyroidism Unspecified hypothyroidism Anemia, unspecified type Anxiety and depression Dysthymic disorder Chronic abdominal pain Abdominal pain, unspecified site Current use of steroid medication Iron deficiency anemia, unspecified iron deficiency anemia type- Primary documented in this encounter [facility] note* Diagnosis Pre-op evaluation- Primary Preoperative examination, unspecified Class 3 severe obesity due to excess calories with serious comorbidity and body mass index (BMI) of 40.0 to 44.9 in adult ([facility]) Essential hypertension Unspecified essential hypertension Gastroesophageal reflux [...] Tear of right acetabular labrum, subsequent encounter RICHAR on CPAP Obstructive sleep apnea (adult) [...] status Bariatric surgery status Jejunostomy tube present (HCC) Status of other artificial opening of gastrointestinal tract Acquired hypothyroidism Unspecified hypothyroidism Anemia, unspecified type Anxiety and depression Dysthymic disorder Chronic abdominal pain Abdominal pain, unspecified site Current use of steroid medication Multiple gastric ulcers [facility]* Diagnosis Pre-op evaluation- Primary [...] Tear of right acetabular labrum, subsequent encounter [facility] on CPAP Obstructive sleep apnea (adult) [...] status Bariatric surgery status Jejunostomy tube present (HCC) Status of other artificial opening of gastrointestinal tract Acquired hypothyroidism Unspecified hypothyroidism Anemia, unspecified type Anxiety and depression Dysthymic disorder Chronic abdominal pain Abdominal pain, unspecified site Current use of steroid medication Impaired intestinal absorption- Primary Unspecified intestinal malabsorption [facility] Diagnosis Pre-op evaluation- Primary Preoperative examination, unspecified Class 3 severe obesity due to excess calories with serious comorbidity and body mass index (BMI) of 40.0 to 44.9 in adult ([facility]) Essential hypertension Unspecified essential hypertension Gastroesophageal reflux [...] Tear of right acetabular labrum, subsequent encounter R[facility] on CPAP Obstructive sleep apnea (adult) [...] status Bariatric surgery status Jejunostomy tube present ([facility]) Status of other artificial opening of gastrointestinal tract Acquired hypothyroidism Unspecified hypothyroidism Anemia, unspecified type Anxiety and depression Dysthymic disorder Chronic abdominal pain Abdominal pain, unspecified site Current use of steroid medication Nutcracker phenomenon of renal vein- Primary documented in this encounter [facility] general Narrative - [facility]Ge[facility] [employer] ([email or web address]) Other History general Narrative - Reported* Type [...] hystectomy 2020 Hospitalization History childbirths Hospitalization History [facility] 2019 Hospitalization History salvador axel-gastritis 1 03/2020 [facility] Other Hiscboy general Narrative - Reported* Type Description Date [...] repair 03/20/2021 Hospitalization History childbirths Hospitalization History [facility] 2019 Hospitalization History salvador axel-gastritis 1 03/2020 [facility] Other History of Present illness Narrative* Sherry Magaña MD - 04/20/2023 3:45 PM EST And I had a phone conversation patient and I had a phone conversation as she was at home in the state of [place] and I was [facility] vascular elsah. She is recovering from a laparotomy for [...] she has seen her general surgeon at [facility] and will be following up with her gastro enterologist at the clinic. I will see her back by virtual visit in 2 months documented in this [facility] Work Phone: Hospital course Narrative No data available for this section [facility] Discharge instructions* Attachments The following attachments cannot be sent through Care Everywhere. * Uterine Fibroids ([place]) * Ovarian Cyst: Hemorrhagic ([place]) [facility]* Attachments The following attachments cannot be sent through Care Everywhere. * Finger: Bruises ([place]) * Subungual Hematoma ([place]) documented in this [facility] Work Phone: Hospital Discharge instructions* Attachments The following attachments cannot be sent through Care Everywhere. * Abdominal Pain ([place]) [facility] Discharge instructions No data available for this section [facility] Discharge instructions* Attachments The following attachments cannot be sent through Care Everywhere. * Abdominal Pain ([place]) [facility] Additional Instructions Please take medications as prescribed. Return to ER or follow-up with PCP or GI specialist if symptoms worsen. 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.[facility] Work Phone: Hospital Discharge instructions Additional [...] fever vomiting despite medication or any other concernsCherrington Hospital Work Phone: Hospital Discharge instructions Additional Instructions [facility] to manage care: - Full code - Routine vital signs - NPO - Maintain central line, routine care per protocol - Decompress the J-tube by placing it to gravity drain when she does develop nauseaCherrington Hospital Work Phone: Hospital Discharge instructions Additional Instructions Follow up with your [facility] surgeon Return to the ED if you develop worsening symptoms or concernsC[facility] Hospital Work Phone: Hospital Discharge instructions Additional Instructions If your symptoms return/worsen or you develop any further concerns or symptoms please see your doctor or return to the emergency department immediately.[facility] Work Phone: Progress note No data available for this section [facility] for referral (narrative)* Consultation (Routine) - New Request Specialty Diagnoses / Procedures Referred By Jazmine hooks Referred To Contact [facility] Sports Diagnoses Articular cartilage disorder of right knee Lucie Mora MD [address] [place] [address] Referral ID Status Reason Start Date Expiration Date V isits Requested Visits Authorized [id number] New Request 06/02/2021 06/27/2022 1 1 [facility] for referral (narrative)* Diagnostic Procedure Only (Routine) - Closed Specialty Diagnoses / Procedures Referred By Jazmine t Referred To Contact XR IMAGING Diagnoses Acetabular labrum tear, right, initial encounter Procedures XR HIP GENERAL 3V PELV/AP/LAT RIGHT RADEX HIP UNILATERAL WITH PELVIS 2-3 VIEWS Kuldip Yousif MD [address] [place] [address] Xr Imaging Referral ID Status Reason Start Date Expiration Date V isits Requested Visits Authorized [id number] Closed Auto-Generate d Referral 06/18/2021 07/18/2022 1 1 [facility] [facility] Outpatient Procedure (Routine) - Pending Review Specialty Diagnoses / Procedures [facility] Diagnoses Gastroesophageal reflux disease without esophagitis Procedures EGD - THERAPEUTIC, EUS, OR TUBE INTERVENTIONS ESOPHAGOGASTRODUODENOSC OPY [place] [address] [place] [phone] [facility] [address] [place] [phone] Referral ID Status Reason Start Date Expiration Date Visits Requested Visits Authorized [id number] Pending Review Auto-Generat ed Referral 11/17/2021 11/17/2022 1 1 [facility] (narrative)* Outpatient Procedure (Routine) - Authorized Specialty Diagnoses / Procedures [facility] Diagnoses Gastroesophageal reflux disease without esophagitis S/P laparoscopic sleeve gastrectomy Procedures PH IMPEDANCE INSERT OFF MEDS ESOPHGL FUNCJ G-ESOP RFLX IMPD ELTRJose PROLNG Breanna Stern APRN.OFFSHORE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 [address] [place] [address] [facility] [address] [place] [address] Referral ID Status Reason Start Date Expiration Date Visits Requested Visits Authorized [id number] Authorized Auto-Generat ed Referral 11/19/2021 11/18/2022 1 1 [facility] (narrative)* Outpatient Procedure (Routine) - Pending Review Specialty Diagnoses / Procedures [facility] Diagnoses Regurgitation of food Gastroesophageal reflux disease, unspecified whether esophagitis present Procedures PH HUERTA INSERT OFF MEDS GASTROESOPHAG REFLX TEST W/TELEMTRY PH ELTRBreanna Lazaro APRN.OFFSHORE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 [address] [place] [address] [facility] [address] [place] [address] Referral ID Status Reason Start Date Expiration Date Visits Requested Visits Authorized [id number] Pending Review Auto-Generat ed Referral 2 12/17/2022 1 1 [facility] (narrative)* Outpatient Procedure (Routine) - Closed Specialty Diagnoses / Procedures Referred By Contac t Referred [facility] Diagnoses Gastroesophageal reflux disease without esophagitis Procedures EGD - THERAPEUTIC, EUS, OR TUBE INTERVENTIONS ESOPHAGOGASTRODUODENOSC OPY [place] [address] [place] [address] [facility] [address] [place] [address] Referral ID Status Reason Start Date Expiration Date V isits Requested Visits Authorized [id number] Closed Auto-Generate d Referral 11/17/2021 11/17/2022 1 1 [facility] (narrative)* Outpatient Procedure (Routine) - Pending Review Specialty Diagnoses / Procedures [facility] Referred To Contact [facility] Diagnoses Pre-op evaluation Procedures ECG COMPLETE ECG ROUTINE ECG W/LEAST 12 LDS W/I&R Ioana Hogan PA-C [address] [place] [address] [place] [id number] [place] [address] Referral ID Status Reason Start Date Expiration Date Visits Requested Visits Authorized [id number] Pending Review Auto-Generat ed Referral 2 01/28/2023 1 1 [facility] (narrative)* Outpatient Procedure (Routine) - Authorized Specialty Diagnoses / Procedures Referred By Contac t Referred To Contact [facility] [place] Diagnoses Esophageal dysphagia S/P gastric bypass Procedures EGD - THERAPEUTIC, EUS, OR TUBE INTERVENTIONS EGD BALLOON DILATION ESOPHAGUS <30 MM DIAM Breanna Stern APRN.CNP [address] [place] [address] [address] Referral ID Status Reason Start Date Expiration Date Visits Requested Visits Authorized [id number] Authorized Auto-Generat ed Referral 03/05/2022 03/05/2023 1 1 [facility] for [facility] (narrative)* Outpatient Procedure (Routine) - Closed Specialty Diagnoses / Procedures Referred By Andriyac t Referred To Contact [facility] Diagnoses Esophageal dysphagia S/P gastric bypass Procedures EGD - THERAPEUTIC, EUS, OR TUBE INTERVENTIONS EGD BALLOON DILATION ESOPHAGUS <30 MM DIAM Breanna Stern APRN.CNP [address] [place] [address] [address] Referral ID Status Reason Start Date Expiration Date V isits Requested Visits Authorized [id number] Closed Auto-Generate d Referral 03/05/2022 03/05/2023 1 1 [facility] (narrative)* Outpatient Procedure (Routine) - Pending Review Specialty Diagnoses / Procedures Referred By Jazmine t Referred To Contact [facility] Diagnoses Constipation, unspecified constipation type Procedures [facility] ANORECTAL MANOMETRY ANORECTAL MANOMETRY Kasie Avalos MD [address] [place] [phone] [place] [phone] Referral ID Status Reason Start Date Expiration Date Visits Requested Visits Authorized [id number] Pending Review Auto-Generat ed Referral 07/22/2022 07/23/2023 1 1 [facility] (narrative)* Diagnostic Procedure Only (Routine) - Pending Review Specialty Diagnoses / Procedures Referred By Contac t Referred To Contact XR IMAGING Diagnoses S/P bariatric surgery Gastroesophageal reflux disease, unspecified whether esophagitis present Procedures XR UPPER GI ROUTINE DOUBLE CONTRAST/AIR RADIOLOGIC EXAM UPR GI TRC DOUBLE CONTRAST STUDY Breanna Stern, SLIM.BETH [address] [place] [address] Xr Imaging Referral ID Status Reason Start Date Expiration Date Visits Requested Visits Authorized [id number] Pending Review Auto-Generat ed Referral 09/18/2022 10/18/2023 1 1 [facility] for referral (narrative)* Outpatient Procedure (Routine) - Authorized Specialty Diagnoses / Procedures [facility] Diagnoses Epigastric pain Procedures EGD DIAGNOSTIC ESOPHAGOGASTRODUODENOSC OPY [place] [address] [place] [address] [facility] [address] [place] [phone] Referral ID Status Reason Start Date Expiration Date Visits Requested Visits Authorized [id number] Authorized Auto-Generat ed Referral 10/20/2022 10/21/2023 1 1 [facility] referral (narrative)* Diagnostic Procedure Only (Routine) - Closed Specialty Diagnoses / Procedures [facility] Referred To Contact US IMAGING Diagnoses Nausea RUQ pain History of cholecystectomy Procedures US ABD RIGHT UPPER QUADRANT US ABDOMINAL REAL TIME W/[place] [address] [place] [phone] [facility] [place] [address] Referral ID Status Reason Start Date Expiration Date V isits Requested Visits Authorized [id number] Closed Auto-Generate d Referral 11/04/2022 12/04/2023 1 1 * Diagnostic Procedure Only (Routine) - Authorized Specialty Diagnoses / Procedures Referred By Contact Referred To Contact MOLECULAR & FUNCTIONAL IMAGING Diagnoses Nausea RUQ pain History of cholecystectomy Procedures NM HEPATOBILIARY W EF AND/OR RX HEPATOBIL SYST IMAG INC GB W/[place] [address] [place] [address] [facility] [address] [place] [phone] Referral ID Status Reason Start Date Expiration Date Visits Requested Visits Authorized [id number] Authorized Auto-Generat ed Referral 11/04/2022 12/04/2023 1 1 [facility] (narrative)* Diagnostic Procedure Only (Routine) - Pending Review Specialty Diagnoses / Procedures Referred By Contac t Referred To Contact XR IMAGING Diagnoses Right knee pain, unspecified chronicity Procedures XR KNEE GENERAL 4V AP BOTH/PA BOTH/LAT/MERC RIGHT RADIOLOGIC EXAM KNEE COMPLETE 4/MORE VIEWS Agustin Salmeron PA-C [address] [place] [address] Xr Imaging [place] [address] Referral ID Status Reason Start Date Expiration Date Visits Requested Visits Authorized [id number] Pending Review Auto-Generat ed Referral 11/04/2022 12/04/2023 1 1 [facility] for referral (narrative)* Outpatient Procedure (Urgent) - Authorized Specialty Diagnoses / Procedures Referred By Contac t Referred [facility] Diagnoses Chronic nausea RUQ pain Procedures US MESENTERIC ARTERY CMPLT VAS LAB DUP-SCAN ARTL TIARA ABDL/PEL/SCROT&/[place] [address] [facility] [place] [address] [facility] [place] [address] [place] [address] Referral ID Status Reason Start Date Expiration Date Visits Requested Visits Authorized [id number] Authorized Auto-Generat ed Referral 11/23/2022 11/23/2023 1 1 [facility] for referral (narrative)* Outpatient Procedure (Urgent) - Closed Specialty Diagnoses / Procedures [facility] Diagnoses Chronic nausea RUQ pain Procedures US MESENTERIC ARTERY CMPLT VAS LAB DUP-SCAN ARTL TIARA ABDL/PEL/SCROT&/[place] [address] [place] [address] [facility] [address] [address] Referral ID Status Reason Start Date Expiration Date V isits Requested Visits Authorized [id number] Closed Auto-Generate d Referral 11/23/2022 11/23/2023 1 1 [facility] referral (narrative)* Diagnostic Procedure Only (Routine) - Closed Specialty Diagnoses / Procedures [facility] Referred To Contact US IMAGING Diagnoses Nausea RUQ pain History of cholecystectomy Procedures US ABD RIGHT UPPER QUADRANT US ABDOMINAL REAL TIME W/[place] [address] [place] [address] [place] [address] Referral ID Status Reason Start Date Expiration Date V isits Requested Visits Authorized [id number] Closed Auto-Generate d Referral 11/04/2022 12/04/2023 1 1 [facility] for referral (narrative)* Outpatient Procedure (Routine) - Authorized Specialty Diagnoses / Procedures [facility] Diagnoses Gastroesophageal reflux disease, unspecified whether esophagitis present Procedures PH HUERTA INSERT ON MEDS GASTROESOPHAG REFLX TEST W/TELEMTRY PH Kasie Sherman MD [address] [place] [address] [facility] [address] [place] [address] Referral ID Status Reason Start Date Expiration Date Visits Requested Visits Authorized [id number] Authorized Auto-Generat ed Referral 04/28/2023 04/27/2024 1 1 * Outpatient Procedure (Routine) - Authorized Specialty Diagnoses / Procedures Referred By Jazmine hooks Referred To [facility] Diagnoses Gastroesophageal reflux disease, unspecified whether esophagitis present Procedures EGD - THERAPEUTIC, EUS, OR TUBE INTERVENTIONS ESOPHAGOGASTRODUODENOSC OPY TRANSORAL DIAGNOSTIC Kasie Avalos MD [address] [place] [address] [address] Referral ID Status Reason Start Date Expiration Date Visits Requested Visits Authorized [id number] Authorized Auto-Generat ed Referral 04/28/2023 04/27/2024 1 1 [facility] for referral (narrative)* Outpatient Procedure (Routine) - Closed Specialty Diagnoses / Procedures Referred By Jazmine hooks Referred To [facility] Diagnoses Gastroesophageal reflux disease, unspecified whether esophagitis present Procedures EGD - THERAPEUTIC, EUS, OR TUBE INTERVENTIONS ESOPHAGOGASTRODUODENOSC OPY TRANSORAL DIAGNOSTIC Kasie Avalos MD [address] [place] [address] [address] Referral ID Status Reason Start Date Expiration Date V isits Requested Visits Authorized [id number] Closed Auto-Generate d Referral 04/28/2023 04/27/2024 1 1 [facility] for referral (narrative)* Outpatient Procedure (Routine) - Authorized Specialty Diagnoses / Procedures Referred By Jazmine hooks Referred To [facility] Diagnoses Multiple gastric ulcers Procedures EGD DIAGNOSTIC ESOPHAGOGASTRODUODENOSC OPY TRANSORAL DIAGNOSTIC Kasie Avalos MD [address] [place] [address] [address] Referral ID Status Reason Start Date Expiration Date Visits Requested Visits Authorized [id number] Authorized Auto-Generat ed Referral 09/08/2023 09/07/2024 1 1 [facility] for referral (narrative)* Outpatient Procedure (Routine) - New Request Specialty Diagnoses / Procedures [facility] Ref[facility] To Contact [facility] [place] Diagnoses Nutcracker phenomenon of renal vein Procedures US RENAL VENOUS JOHANNY VAS LAB DUP-SCAN ARTL TIARA ABDL/PEL/SCROT&/RPR ORGN COM Braxton Prado MD [address] [place] [address] [place] 5[address]37 [place] [phone] Referral ID Status Reason Start Date Expiration Date Visits Requested Visits Authorized [id number] New Request Auto-Generat ed Referral 11/04/2023 11/03/2024 1 1 [facility] for visit NarrativeGeneral Surgery Referral UpdateNort 3Sourcing Other Reason for visit Narrative* Outpatient Procedure (Routine) - Closed Specialty Diagnoses / Procedures Referred By [facility] Referred To Contact [facility] [place] Diagnoses Gastroesophageal reflux disease without esophagitis Procedures EGD - THERAPEUTIC, EUS, OR TUBE INTERVENTIONS ESOPHAGOGASTRODUODENOSC OPY [place] [address] [place] [address] [facility] [address] [address] Referral ID Status Reason Start Date Expiration Date V isits Requested Visits Authorized [id number] Closed Auto-Generate d Referral 11/17/2021 11/17/2022 1 1 [facility] for visit Narrative* Outpatient Procedure (Routine) - Closed Specialty Diagnoses / Procedures Referred By [facility] Referred To Contact [facility] [place] Diagnoses Esophageal dysphagia S/P gastric bypass Procedures EGD - THERAPEUTIC, EUS, OR TUBE INTERVENTIONS EGD BALLOON DILATION ESOPHAGUS <30 MM DIAM Breanna Stern, SPEECH PATHOLOGY SUPERVISOR.OFFSHORE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 [address] [place] [address] [facility] [address] [address] Referral ID Status Reason Start Date Expiration Date V isits Requested Visits Authorized [id number] Closed Auto-Generate d Referral 03/05/2022 03/05/2023 1 1 [facility] for visit Narrative* Outpatient Procedure (Urgent) - Closed Specialty Diagnoses / Procedures Referred By Contac t Referred To Contact [facility] [place] Diagnoses Chronic nausea RUQ pain Procedures US MESENTERIC ARTERY CMPLT VAS LAB DUP-SCAN ARTL TIARA ABDL/PEL/SCROT&/[place] [address] [place] [address] [address] Referral ID Status Reason Start Date Expiration Date V isits Requested Visits Authorized [id number] Closed Auto-Generate d Referral 11/23/2022 11/23/2023 1 1 [facility] for visit Narrative* Diagnostic Procedure Only (Routine) - Closed Specialty Diagnoses / Procedures Referred By Contac t Referred To Contact US IMAGING Diagnoses Nausea RUQ pain History of cholecystectomy Procedures US ABD RIGHT UPPER QUADRANT US ABDOMINAL REAL TIME W/[place] [address] [place] [address] [facility] Referral ID Status Reason Start Date Expiration Date V isits Requested Visits Authorized [id number] Closed Auto-Generate d Referral 11/04/2022 12/04/2023 1 1 [facility] for visit Narrative* Outpatient Procedure (Routine) - Closed Specialty Diagnoses / Procedures Referred By Contac t Referred To Contact [facility] Diagnoses Gastroesophageal reflux disease, unspecified whether esophagitis present Procedures EGD - THERAPEUTIC, EUS, OR TUBE INTERVENTIONS ESOPHAGOGASTRODUODENOSC OPY TRANSORAL DIAGNOSTIC Robbie, MD Kasie [address] [place] [address] [facility] [place] [phone] Referral ID Status Reason Start Date Expiration Date V isits Requested Visits Authorized [id number] Closed Auto-Generate d Referral 04/28/2023 04/27/2024 1 [facility] Procedure (Routine) - Closed Specialty Diagnoses / Procedures Referred By Jazmine t Referred To Contact [facility] Diagnoses Multiple gastric ulcers Procedures EGD DIAGNOSTIC ESOPHAGOGASTRODUODENOSC OPY TRANSORAL DIAGNOSTIC Kasie Avalos MD [address] [place] [address] [facility] [address] [place] [address] Referral ID Status Reason Start Date Expiration Date V isits Requested Visits Authorized [id number] Closed Auto-Generate d Referral 09/08/2023 09/07/2024 1 1 [facility] Summary Purpose Family History No Family [...] FoundDocuments on File Type Date 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 Advance Directive(s) 03/13/2021 9:49 AM Date Activated Date Inactivated Comments 12/06/2022 9:37 PM 12/09/2022 8:48 PM Question Answer Comments Full Code Order Discussed With: Patient Date Activated Date Inactivated Comments 11/22/2022 8:03 PM 11/23/2022 5:11 PM Question Answer Comments Full Code Order Discussed With: Patient Documents on File Type Date Recorded 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 Advance Directive(s) 03/13/2021 9:49 AM [...] Documents on File Type Date Recorded 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 Advance Directive(s) 07/04/2021 4:13 PM [...] Documents on File Type Date Recorded 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 Advance Directive(s) 03/13/2021 9:49 AM [...] 4:02 PM Date Activated Date Inactivated Comments 10/10/2023 5:58 PM 10/12/2023 3:51 PM Date Activated Date Inactivated Comments 08/07/2023 3:20 PM 08/08/2023 5:15 PM Date Activated Date Inactivated Comments 08/04/2023 3:12 PM 08/06/2023 6:24 PM Date Activated Date Inactivated Comments 07/19/2023 11:21 AM 07/20/2023 4:03 PM Date Activated Date Inactivated Comments 06/06/2023 10:22 PM 06/09/2023 4:19 PM Date Activated Date Inactivated Comments 10/10/2023 5:58 PM 10/12/2023 3:51 PM Date Activated Date Inactivated Comments 08/07/2023 3:20 PM 08/08/2023 5:15 PM Date Activated Date Inactivated Comments 08/04/2023 3:12 PM 08/06/2023 6:24 PM Date Activated Date Inactivated Comments 07/19/2023 11:21 AM 07/20/2023 4:03 PM Date Activated Date Inactivated Comments 06/06/2023 10:22 PM 06/09/2023 4:19 PM Discharge Instructions * Attachments The following attachments cannot be sent through Care Everywhere. * Abdominal Pain with Follow Up in 24 Hours ([facility]) ([place]) documented in this encounter Assessments Diagnosis Lower abdominal pain- Primary Abdominal pain, other specified site Reason for Referral Status Reason Specialty Diagnoses / Procedures Referre d By Contact Referred To Contact Closed Procedures US PELVIC WITH TRANSVAGINAL WITH DOPPLER Juanito Laird PA-C [address] [place] [address] Specialty Diagnoses / Procedures Referred By Contact Referred To Contact [facility] Diagnoses Tear of right acetabular labrum, subsequent encounter Procedures CONSULT TO PHYSICAL THERAPY PHYSICAL THERAPY EVALUATION HIGH COMPLEX 45 MINS Justine Shabazz PA-C [address] [place] [address] [facility] [place] [address] [place] [address] Referral ID Status Reason Start Date Expiration Date Visits Requested Visits Authorized [id number] Pending Review Auto-Generat ed Referral 06/23/2021 06/23/2022 1 1 Reason 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 - Please request Dr. Keven Gomez [phone] Diagnosis 1 Hernia (K46.9) Referral Organization [facility] Family Priscila Guo Referring Provider First Name Shanna Referring Provider Last Name Slade Referring Provider Specialty Nurse Ramona castañeda Referred Organization [facility] Referred Address [address] [facility], [place],[address] Referred Provider Specialty General Surg ammon Referral Priority Routine Specialty Diagnoses / Procedures Referred By Jazmine hooks Referred To Contact Diagnoses S/P laparoscopic sleeve gastrectomy Procedures CONSULT TO BARIATRIC NUTRITION OFFICE/OUTPATIENT [facility] 60-74 MINUTES Sabina Joy APRN.CNP [address] [place] [address] Referral ID Status Reason Start Date Expiration Date Visits Requested Visits Authorized [id number] Pending Review PCP Requested Referral 10/09/2021 10/09/2022 [...] BARIATRIC ESOPHAGOGASTRODUODENOSCO PY TRANSORAL DIAGNOSTIC Sabina Joy APRN.OFFSHORE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 [address] [place] [address] [facility] [address] [place] [address] Referral ID Status Reason Start Date Expiration Date Visits Requested Visits Authorized [id number] Pending Review Auto-Generat ed Referral 10/09/2021 10/09/2022 1 1 Specialty Diagnoses / Procedures Referred By Jazmine hooks Referred To Contact Diagnoses RICHAR (obstructive sleep apnea) Procedures CONSULT TO SLEEP MEDICINE - ADULT OFFICE/OUTPATIENT [facility] 60-74 MINUTES Sabina Joy APRN.OFFSHORE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 [address] [place] [address] Referral ID Status Reason Start Date Expiration Date Visits Requested Visits Authorized [id number] Authorized PCP Requested Referral 2 01/02/2023 1 1 Specialty Diagnoses / Procedures Referred By Contac t Referred To Contact [facility] Diagnoses S/P bariatric surgery Primary osteoarthritis involving multiple joints Procedures CONSULT TO PHYSICAL THERAPY PHYSICAL THERAPY EVALUATION HIGH COMPLEX 45 MINS Breanna Stern APRN.OFFSHORE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 [address] [place] [address] [facility] [place] [address] [place] [address] Referral ID Status Reason Start Date Expiration Date Visits Requested Visits Authorized [id number] Pending Review Auto-Generat ed Referral 2 02/03/2023 1 1 Specialty Diagnoses / Procedures Referred By Contac t Referred To Contact Endocrinology Diagnoses History of adrenal insufficiency Hypothyroidism, unspecified type Procedures CONSULT TO ENDOCRINOLOGY OFFICE/OUTPATIENT [facility] MDM 60-74 MINUTES Aliyah Washburn PA-C [address] [place] [address] Referral ID Status Reason Start Date Expiration Date Visits Requested Visits Authorized [id number] Authorized PCP Requested Referral 06/12/2022 06/12/2023 1 1 Specialty Diagnoses / Procedures Referred By Contac t Referred To Contact Allergy Diagnoses Rash and nonspecific skin eruption Pain in eye, unspecified laterality Facial edema Procedures CONSULT TO ALLERGY/IMMUNOLOGY OFFICE/OUTPATIENT [facility] MDM 60-74 MINUTES Samara Evans MD [address] [place] [address] Referral ID Status Reason Start Date Expiration Date Visits Requested Visits Authorized [id number] Authorized PCP Requested Referral 07/28/2022 07/28/2023 1 1 Specialty Diagnoses / Procedures Referred By Contac t Referred To Contact CT IMAGING Diagnoses Generalized abdominal pain Procedures CTA ABD/PEL W IVCON CT ANGIO ABD&PLVIS CNTRST MTRL W/WO CNTRST Agustin Piper MD [address] [place] [address] Ct Imaging [place] [address] Referral ID Status Reason Start Date Expiration Date Visits Requested Visits Authorized [id number] Authorized Auto-Generat ed Referral 01/17/2023 1 1 Specialty Diagnoses / Procedures Referred By Contac t Referred To Contact Home [facility] Services Diagnoses Median arcuate ligament syndrome (CMS/HCC) Alicia Toro, SPEECH PATHOLOGY SUPERVISOR-OFFSHORE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 [address] [address] [place] [address] Referral ID Status Reason Start Date Expiration Date Visits Requested Visits Authorized [id number] Authorized Specialty Services Required 03/08/2023 03/07/[phone] Specialty Diagnoses / Procedures Referred By Contac t Referred To Contact Home Health Services Diagnoses Other [place] [address] [address] [place] [address] Referral ID Status Reason Start Date Expiration Date Visits Requested Visits Authorized [id number] Authorized Specialty Services Required 07/01/2023 06/30/[phone] Specialty Diagnoses / Procedures Referred By Contac t Referred To Contact Francisco J Steve MD [address] [place] [address] Referral ID Status Reason Start Date Expiration Date V isits Requested Visits Authorized [id number] Pending Review 1 1 Specialty Diagnoses / Procedures Referred By Contac t Referred To Contact TRANSPLANT Diagnoses Chronic nausea History of laparoscopic partial gastrectomy History of sphincterotomy of sphincter of Oddi Median arcuate ligament syndrome (HCC) Procedures CONSULT TO [facility] LAPAROTOMY CELIOTOMY W/WO BIOPSY SPX Deacon Kat MD [address] [place] [address] [facility] [address] [address] Referral ID Status Reason Start Date Expiration Date Visits Requested Visits Authorized [id number] Canceled Financial Clearance Required - OON Payor 07/19/2023 07/18/2024 99 99 Specialty Diagnoses / Procedures Referred By Contac t Referred To Contact Diagnoses Chronic abdominal pain History of gastric bypass Pre-op testing Procedures REFER TO [facility] - PREOPERATIVE OPTIMIZATION OFFICE/OUTPATIENT [facility] MDM 60 [place] [address] [place] [address] Referral ID Status Reason Start Date Expiration Date Visits Requested Visits Authorized [id number] Authorized PCP Requested Referral 09/09/2023 09/08/2024 1 1 Specialty Diagnoses / Procedures Referred By Contac t Referred To Contact Endocrinology Diagnoses Hypoglycemia Adrenal insufficiency (HCC) Procedures CONSULT TO ENDOCRINOLOGY OFFICE/OUTPATIENT [facility] 60 MINUTES Georgina Carrillo MD [facility] [address] [place] [id number] Referral ID Status Reason Start Date Expiration Date Visits Requested Visits Authorized [id number] Authorized PCP Requested Referral 10/13/2023 10/12/2024 1 1 Specialty Diagnoses / Procedures Referred By Contac t Referred To Contact XR IMAGING Diagnoses Abnormal defecation S/P hysterectomy Endometriosis Procedures XR DEFECOGRAPHY RADIOLOGIC EXAM COLON SINGLE CONTRAST STUDY Georgina Carrillo MD [facility] [address] [address] [place] [address] Referral ID Status Reason Start Date Expiration Date Visits Requested Visits Authorized [id number] New Request Auto-Generat ed Referral 10/13/2023 11/11/2024 1 1 Specialty Diagnoses / Procedures Referred By Contac t Referred To Contact [facility] Diagnoses Abnormal defecation Constipation, unspecified constipation type Procedures [facility] ANORECTAL MANOMETRY ANORECTAL MANOMETRY Georgina Carrillo MD [facility] [address] [address] [facility] [place] [address] [place] [address] Referral ID Status Reason Start Date Expiration Date Visits Requested Visits Authorized [id number] New Request Auto-Generat ed Referral 10/13/2023 10/12/2024 1 1 Medications Administered Section Inactive Administered Medications - up to 3 most recent administrations Medication Order MAR Action Action Date Dose Rate Site benzocaine 20% (TOPEX) TOPICAL, X (OR/PROCEDURE) PRN, Starting on Heena 12/25/21 at 0939, Until Heena 12/25/21 at 0939, Intraprocedure Given 12/25/2021 9:39 AM EST 1 [place] Meperidine (PF) injection (DEMEROL) X (OR/PROCEDURE) PRN, [...] section and content) DATE CREATED AUTHOR 09/11/2017 [facility] DATE CREATED AUTHOR AUTHOR'S ORGANIZ ATION 06/03/2021 [facility] DATE CREATED AUTHOR AUTHOR'S ORGANIZ ATION 06/24/2022 [facility] DATE CREATED AUTHOR AUTHOR'S ORGANIZ ATION 11/01/2022 [facility] DATE CREATED AUTHOR AUTHOR'S ORGANIZ ATION 11/07/2022 [facility] DATE CREATED AUTHOR AUTHOR'S ORGANIZ ATION 11/22/2022 [facility] DATE CREATED AUTHOR AUTHOR'S ORGANIZ ATION 11/29/2022 [facility] DATE CREATED AUTHOR AUTHOR'S ORGANIZ ATION 12/16/2022 [facility] DATE CREATED AUTHOR AUTHOR'S ORGANIZ ATION 02/12/2023 [facility] DATE CREATED AUTHOR AUTHOR'S ORGANIZ ATION 02/18/2023 [facility] DATE CREATED AUTHOR AUTHOR'S ORGANIZ ATION 06/27/2023 [facility] DATE CREATED AUTHOR AUTHOR'S ORGANIZ ATION 09/07/2023 [facility] DATE CREATED AUTHOR AUTHOR'S ORGANIZ ATION 09/29/2023 [facility] DATE CREATED AUTHOR AUTHOR'S ORGANIZ ATION 10/12/2023 [facility] DATE CREATED AUTHOR AUTHOR'S ORGANIZ ATION 10/13/2023 [facility] DATE CREATED AUTHOR AUTHOR'S ORGANIZ ATION 11/03/[address] [facility] [address] [facility] DATE CREATED AUTHOR AUTHOR'S ORGANIZ ATION 11/04/2023 [facility] DATE CREATED AUTHOR AUTHOR'S ORGANIZ ATION 11/06/2023 [facility] DATE CREATED AUTHOR AUTHOR'S ORGANIZ ATION 11/06/2023 [facility] Reason for Visit (unrecogniz ed section and content) Reason Comments Fatigue Anxiety Stress Specialty Diagnoses / Procedures Referred By Jazmine hooks Referred To Contact Psychology / ADULT PSYCHOLOGY Diagnoses follow up Procedures VIDEO PSYC/PSYL EST Pablo Lebron, PSMARIAMA [address] [place] [address] Pablo Lebron, ROSALBA [address] [place] [address] Referral ID Status Reason Start Date Expiration Date V isits Requested Visits Authorized [id number] Pending Review 06/09/2023 09/07/2023 1 1 Reason Comments Abdominal Pain RUQ abdominal pain t hat is spreading across her back and into the left side. pt states that she does not have a gallbladder or appendix and has been treated by [facility] recently for bowel adhesions and it is just getting worse. 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 Reason Comments Follow-up Pt presents for [...] OFF MEDS GASTROESOPHAG REFLX TEST W/TELEMTRY PH JAKETRD Breanna Stern, SLIM.OFFSHORE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 [address] [place] [address] [facility] [address] [place] [address] Referral ID Status Reason Start Date Expiration Date V isits Requested Visits Authorized [id number] Closed Auto-Generate d Referral 12/25/2021 12/17/2022 1 [...] VIDEO PSYC/PSYL EST Self Pablo Lebron, PSYD [address] [place] [address] Referral ID Status Reason Start Date Expiration Date V isits Requested Visits Authorized [id number] Outside PCP 09/21/2022 12/20/2022 1 1 Reason Comments Anxiety Stress Specialty Diagnoses / Procedures Referred By Contac t Referred To Contact Psychology / ADULT PSYCHOLOGY Diagnoses Follow up Procedures VIDEO PSYC/PSYL EST Pablo Lebron, PSYD [address] [facility] [address] [place] [address] Pablo Lebron, PSYD [address] [place] [address] Referral ID Status Reason Start Date Expiration Date V isits Requested Visits Authorized [id number] Pending Review 10/05/2022 01/03/2023 1 1 Reason [...] 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] Procedures UT UNLISTED PX ABDOMEN MUSCULOSKELETAL SYSTEM Release Median Arcuate Ligament [place] [address] [place] [address] [place] [address] [place] [address] Referral ID Status Reason Start Date Expiration Date Visits Re quested Visits Authorized [id number] 1 1 Reason Comments Abdominal Pain Specialty Diagnoses / Procedures [facility] Referred To Contact Diagnoses Abdominal pain History of gastric bypass Nausea and vomiting, unspecified vomiting type nausea and vomiting [place] [address] [place] [address] [facility] [address] [address] [place] [address] Referral ID Status Reason Start Date Expiration Date Visits Re quested Visits Authorized [id number] 1 1 Reason Comments Weight Loss Surgery Reason Comments Established Patient Reason Comments Appointment Cancel EGD Reason Comments Patient Question Reason Comments Vomiting Reason Comments 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 Currently has a Jtube for feeding, and prolapsed bladder. Pain with eating. Pain around sternum is better and breathing is better Reason Comments Nausea Dry heaving Abdominal Pain Hypoglycemia Specialty Diagnoses / Procedures Referred By Contac t Referred To Contact Diagnoses Epigastric pain Median arcuate ligament syndrome (CMS-HCC) Nausea and vomiting, unspecified vomiting type Procedures [place] [address] [place] [address] [place] [address] [address] [place] [address] Referral ID Status Reason Start Date Expiration Date Visits Re quested Visits Authorized [id number] 1 1 Reason Comments Received Outside Medical Records Reason Comments Education Of Patient/family Reminder Call 08/26/23 appt confirm ed Reason Comments Establish Care pain Reason Comments 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 - 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 Reason Onset Date Comments Refill Request 08/23/2023 Reason Onset Date Comments Procedure 08/26/2023 HUERTA 48 Hour pH Capsule Placement Specialty Diagnoses / Procedures [facility] Referred To Contact [facility] Diagnoses Gastroesophageal reflux disease, unspecified whether esophagitis present Procedures PH HUERTA INSERT ON [employer] GASTROESOPHAG REFLX TEST W/TELEMTRY PH Kasie Sherman MD [address] [place] [address] [facility] [place] [address] [place] [address] Referral ID Status Reason Start Date Expiration Date V isits Requested Visits Authorized [id number] Closed Auto-Generate d Referral 04/28/2023 04/27/2024 1 1 Reason Onset Date Comments Procedure 08/31/2023 48 Hr HUERTA pH D ownload Reason Comments 10/20/2023 Diagnostic Laparosco py Reason Comments Established Patient 3 month follow up Reason Onset Date Comments Refill Request 09/20/2023 Reason Comments Anxiety Stress Fatigue Specialty Diagnoses / Procedures Referred By Contac t Referred To Contact Psychology / ADULT PSYCHOLOGY Diagnoses follow up request Procedures VIDEO PSYC/PSYL EST Self Pablo Lebron, ROSALBA [address] [place] [address] Referral ID Status Reason Start Date Expiration Date V isits Requested Visits Authorized [id number] Outside PCP 09/28/2023 02/15/2024 99 99 Reason Comments Schedule Surgery 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 Emergency Department Report [facility] EM[facility] Service Date:.01/30/20 PCP: Shanna June Chief Complaint: Chief Complaint Patient presents with Abdominal Pain RUQ abdominal pain that is spreading across her back and into the left side. pt states that she does not have a gallbladder or appendix and has been treated by [facility] recently for bowel adhesions and [...] file Gets together: Not on file Attends jehovah's witness service: Not on file Active member of [...] with a prescription of Zofran and some O'Brien to help with some of the discomfort. [...] parameters not met)1200 (Not Given - Provider: Nadai Zee RN - Reason: Order parameters not [...] line, Starting on 03/06/23 at 1240, Give UT if patient is unable to take orally [...] line, Starting on 03/06/23 at 1240
Give UT if patient is unable to take orally [...] 0900 0914 (Given - Provider: Beatriz Dow, RN)1530 (Given - Provider: Beatriz Dow, RN)2239 (Given - Provider: Andrew Potts, DEE) 0826 (Given - Provider: Mariah Herrera RN)1501 (Given - Provider: Mariah Herrera RN)2136 (Given - Provider: Grecia Schaffer, RN) 1006 (Given - Provider: Tory Mcmullen, DEE)1500 (Due)2100 (Due) calcium gluconate in NS IV 2 g 2 g, intravenous, at 100 mL/hr, Administer over 1 Hours, Once, On Wed06/29/23 at 2035, For 1 dose escitalopram (Lexapro) tablet 20 mg 20 mg, oral, Daily, First dose on Wed06/30/23 at 0900 0914 (Given - Provider: Beatriz Dow, DEE) 0826 (Given - Provider: Mariah Herrera, DEE) 1012 (Given - Provider: Tory Mcmullen, DEE) famotidine (Pepcid) tablet 20 mg 20 mg, oral, 2 times daily, First dose on Wed06/30/23 at 2100 0919 (Given - Provider: Beatriz Dow, DEE)2239 (Given - Provider: Andrew Potts, DEE) 0826 (Given - Provider: Mariah Herrera RN)2137 [...] Beatriz Dow RN)2241 (Given - Provider: Andrew Potts, DEE) 0827 (Given - Provider: Mariah Herrera RN)2139 [...] Potts RN) 213 (Given - Provider: Grecia Schaffer RN) 2100 (Due) morphine injection 4 mg (COMPLETED) [...] Provider: Mariah Herrera RN - Reason: Patient/family refused)2100 (Not Given - Provider: Grecia Schaffer RN [...] 2100 0913 (Given - Provider: Beatriz Dow RN)2239 (Given - Provider: Andrew Potts, DEE) 0827 (Given - Provider: Mariah Herrera RN)2136 (Given - Provider: Grecia Schaffer, DEE) 1007 (Given - Provider: Tory Mcmullen RN)2100 (Due) Continuous Medication Order 07/01/2023 07/02/2023 [...] Beatriz Dow RN)1742 (Stopped - Provider: Beatriz Dow, DEE)2225 (New [...] Galvan, RN)0942 (Given - Provider: Mariah Herrera, RN)1345 (Given - Provider: Mariah Herrera, RN) ondansetron (Zofran) injection 4 mg 4 mg, intravenous, Every 6 hours PRN, nausea/vomiting, first line, Starting on Wed07/01/23 at 1106, When administering via IV Push, [...] Attending Provider Active Start: July 17, 2023 Warp Drawer Relationship Specialty Start Date End Date Shanna June, [facility] [address] [place] [address] PCP - General Nurse Practitioner - Family 01/30/20 Warp Drawer Relationship Specialty Start Date End Date Shanna June CNP [address] [place] [address] PCP - General Family Practice 01/31/20 Antelmo Davey [address] [place] [address] 09/25/19 [place] [address] [place] [address] Consulting General Surgery 09/25/19 Shanna June CNP [address] [place] [address] Referring Family Practice 10/19/19 Warp Drawer Relationship Specialty Start Date End Date Shanna June CNP [address] [place] [address] PCP - General Family Practice 01/31/20 Antelmo Davey MD [address] [place] [address] 09/25/19 [place] [address] [place] [address] Consulting General Surgery 09/25/19 Shanna June CNP [address] [place] [address] Referring Family Practice 10/19/19 Warp Drawer Relationship Specialty Start Date End Date Shanna June CNP [address] [place] [address] PCP - General Family Practice 01/31/20 Antelmo Davey MD [address] [facility] [address] (Fax) 09/25/19 [place] [address] [place] [address] Consulting General Surgery 09/25/19 Shanna June CNP [address] [place] [address] Referring Family Practice 10/19/19 Warp Drawer Relationship Specialty Start Date End Date Shanna June CNP [address] [place] [address] PCP - General Family Practice 01/31/20 Antelmo Davey MD [address] [facility] [address] (Fax) 09/25/19 [place] [address] [place] [address] Consulting General Surgery 09/25/19 Shanna June CNP [address] [place] [address] Referring Family Practice 10/19/19 Warp Drawer Relationship Specialty Start Date End Date Wally Foley [address] [facility] [place] [address] PCP - General Specialist 07/27/21 Warp Drawer Relationship Specialty Start Date End Date Shanna June CNP [address] [place] [address] PCP - General Family Practice 01/31/20 Antelmo Davey MD [address] [place] [address] (Fax) 09/25/19 [place] [address] [place] [address] Consulting General Surgery 09/25/19 Shanna June, OFFSHORE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 [address] [place] [address] Referring Family Practice 10/19/19 Warp Drawer Relationship Specialty Start Date End Date Shanna June CNP [address] [place] [address] PCP - General Family Practice 01/31/20 Antelmo Davey MD [address] [place] [place] [address] (Fax) 09/25/[address] [place] [address] [facility] [place] [address] Consulting General Surgery 09/25/19 Shanna June, OFFSHORE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 [address] [place] [address] Referring Family Practice 10/19/19 Warp Drawer Relationship Specialty Start Date End Date Shanna June, OFFSHORE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 [address] [place] [address] PCP - General Family Practice 01/31/20 Antelmo Davey MD [address] [facility] [address] (Fax) 09/25/19 [place] [address] [place] [address] Consulting General Surgery 09/25/19 Shanna June CNP [address] [place] [address] Referring Family Practice 10/19/19 Warp Drawer Relationship Specialty Start Date End Date Shanna June CNP [address] [place] [address] PCP - General Family Practice 01/31/20 Antelmo Davey MD [address] [place] [facility] [address] (Fax) 09/25/19 [place] [address] [place] [address] Consulting General Surgery 09/25/19 Shanna JuneBETH [address] [place] [address] Referring Family Practice 10/19/19 Warp Drawer Relationship Specialty Start Date End Date Shanna June CNP [address] [place] [address] PCP - General Family Practice 01/31/20 Antelmo Davey MD [address] [place] [facility] [address] (Fax) 09/25/19 [place] [address] [place] [address] Consulting General Surgery 09/25/19 Shanna June, OFFSHORE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 [address] [place] [address] Referring Family Practice 10/19/19 Warp Drawer Relationship Specialty Start Date End Date Shanna June CNP [address] [place] [address] PCP - General Family Practice 01/31/20 Antelmo Davey MD [address] [place] [facility] [place] [address] 09/25/[address] [place] [address] [facility] [place] [address] Consulting General Surgery 09/25/19 Slade ShannaBETH tomlin [address] [place] [address] Referring Family Practice 10/19/19 Warp Drawer Relationship Specialty Start Date End Date Wally Foley [address] [place] [address] PCP - General Specialist 07/27/21 Warp Drawer Relationship Specialty Start Date End Date Shanna June CNP [address] [place] [address] PCP - General Family Practice 01/31/20 Antelmo Davey MD [address] [facility] [place] [address] 09/25/19 [place] [address] [place] [address] Consulting General Surgery 09/25/19 Shanna June CNP [address] [place] [address] Referring Family Practice 10/19/19 Warp Drawer Relationship Specialty Start Date End Date Shanna June CNP [address] [place] [address] PCP - General Family Practice 01/31/20 Antelmo Davey MD [address] [facility] [place] [address] 09/25/19 [place] [address] [place] [address] Consulting General Surgery 09/25/19 Shanna June CNP [address] [place] [address] Referring Family Practice 10/19/19 Warp Drawer Relationship Specialty Start Date End Date Slade BETH Otero [address] [place] [address] PCP - General Family Practice 01/31/20 Antelmo Davey MD [address] [place] [address] (Fax) 09/25/[address] [place] [address] [facility] [place] [address] Consulting General Surgery 09/25/19 Shanna June CNP [address] [place] [address] Referring Family Practice 10/19/19 Warp Drawer Relationship Specialty Start Date End Date Shanna June CNP [address] [place] [address] PCP - General Family Practice 01/31/20 Antelmo Davey MD [address] [place] [address] (Fax) 09/25/19 [place] [address] [place] [address] Consulting General Surgery 09/25/19 Shanna June CNP [address] [place] [address] Referring Family Practice 10/19/19 Warp Drawer Relationship Specialty Start Date End Date Shanna June CNP [address] [place] [address] PCP - General Family Medicine 01/31/20 Antelmo Davey MD [address] [place] [address] (Fax) 09/25/19 [place] [address] [place] [address] Consulting General Surgery 09/25/19 Shanna June, OFFSHORE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 [address] [place] [address] Referring Family Medicine 10/19/19 Warp Drawer Relationship Specialty Start Date End Date Shanna June CNP [address] [place] [address] PCP - General Family Medicine 01/31/20 Antelmo Davey MD [address] [place] [address] (Fax) 09/25/19 [place] [address] [place] [address] Consulting General Surgery 09/25/19 Shanna June, OFFSHORE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 [address] [place] [address] Referring Family Medicine 10/19/19 Warp Drawer Relationship Specialty Start Date End Date Shanna June CNP [address] [place] [address] PCP - General Family Medicine 01/31/20 Antelmo Davey MD [address] [place] [address] (Fax) 09/25/19 [place] [address] [place] [address] Consulting General Surgery 09/25/19 Shanna June BETH [address] [place] [address] Referring Family Medicine 10/19/19 Warp Drawer Relationship Specialty Start Date End Date Shanna June CNP [address] [place] [address] PCP - General Family Medicine 01/31/20 Antelmo Davey MD [address] [place] [address] (Fax) 09/25/[address] [place] [address] [facility] [place] [address] Consulting General Surgery 09/25/19 SladeShanna, OFFSHORE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 [address] [place] [address] Referring Family Medicine 10/19/19 Warp Drawer Relationship Specialty Start Date End Date Shanna JuneBETH [address] [place] [address] PCP - General Family Medicine 01/31/20 Antelmo Davey MD [address] [place] [address] 09/25/19 [place] [address] [place] [address] Consulting General Surgery 09/25/19 SladeShanna, OFFSHORE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 [address] [place] [address] Referring Family Medicine 10/19/19 Warp Drawer Relationship Specialty Start Date End Date SladeDenyBETH pressley [address] [place] [address] PCP - General Family Medicine 01/31/20 Antelmo Davey MD [address] [place] [place] [address] (Fax) 09/25/19 [place] [address] [place] [address] Consulting General Surgery 09/25/19 Shanna June, OFFSHORE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 [address] [place] [address] Referring Family Medicine 10/19/19 Warp Drawer Relationship Specialty Start Date End Date Shanna June, OFFSHORE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 [address] [place] [address] PCP - General Family Medicine 01/31/20 Antelmo Davey MD [address] [place] [place] [address] (Fax) 09/25/[address] [place] [address] [facility] [place] [address] Consulting General Surgery 09/25/19 Shanna June, OFFSHORE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 [address] [place] [address] Referring Family Medicine 10/19/19 Warp Drawer Relationship Specialty Start Date End Date Shanna June CNP [address] [place] [address] PCP - General Family Medicine 01/31/20 Antelmo Davey MD [address] [place] [place] [address] (Fax) 09/25/19 [place] [address] [place] [address] Consulting General Surgery 09/25/19 Slade Shanna, OFFSHORE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 [address] [place] [address] Referring Family Medicine 10/19/19 Warp Drawer Relationship Specialty Start Date End Date SladeDenyie, OFFSHORE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 [address] [place] [address] PCP - General Family Medicine 01/31/20 Antelmo Davey MD [address] [place] [address] (Fax) 09/25/[address] [place] [address] [facility] [place] [address] Consulting General Surgery 09/25/19 Shanna June, OFFSHORE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 [address] [place] [address] Referring Family Medicine 10/19/19 Warp Drawer Relationship Specialty Start Date End Date SladeDenverShannaBETH tomlin [address] [place] [address] PCP - General Family Medicine 01/31/20 Antelmo Davey MD [address] [place] [address] (Fax) 09/25/19 [place] [address] [place] [address] Consulting General Surgery 09/25/19 Shanna June CNP [address] [place] [address] Referring Family Medicine 10/19/19 Warp Drawer Relationship Specialty Start Date End Date SladeShanna, OFFSHORE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 [address] [place] [address] PCP - General Family Medicine 01/31/20 Antelmo Davey MD [address] [place] [address] (Fax) 09/25/19 [place] [address] [place] [address] Consulting General Surgery 09/25/19 Shanna June, OFFSHORE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 [address] [place] [address] Referring Family Medicine 10/19/19 Warp Drawer Relationship Specialty Start Date End Date Shanna June, OFFSHORE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 [address] [place] [address] PCP - General Family Medicine 01/31/20 Antelmo Davey MD [address] [place] [address] (Fax) 09/25/19 [place] [address] [place] [address] Consulting General Surgery 09/25/19 Shanna June, [facility] [address] [place] [address] Referring Family Medicine 10/19/19 Warp Drawer Relationship Specialty Start Date End Date Wally Foley MD [address] [place] [facility] [place] [address] PCP - General Family Medicine 01/19/22 Antelmo Davey MD [address] [place] [address] (Fax) 09/25/[address] [place] [address] [facility] [place] [address] Consulting General Surgery 09/25/19 Shanna June, OFFSHORE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 [address] [place] [address] Referring Family Medicine 10/19/19 Warp Drawer Relationship Specialty Start Date End Date Wally Foley MD [address] [place] [address] PCP - General Family Medicine 01/19/22 Antelmo Davey MD [address] [facility] [address] (Fax) 09/25/19 [place] [address] [place] [address] Consulting General Surgery 09/25/19 Shanna June, OFFSHORE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 [address] [place] [address] Referring Family Medicine 10/19/19 Warp Drawer Relationship Specialty Start Date End Date Wally Foley MD [address] [facility] [place] [address] PCP - General Family Medicine 01/19/22 Antelmo Davey MD [address] [facility] [address] (Fax) 09/25/[address] [place] [address] [facility] [place] [place] [address] Consulting General Surgery 09/25/19 Shanna June, OFFSHORE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 [address] [place] [address] Referring Family Medicine 10/19/19 Warp Drawer Relationship Specialty Start Date End Date Wally Foley MD [address] [place] [address] PCP - General Family Medicine 01/19/22 Antelmo Davey MD [address] [place] [address] (Fax) 09/25/[address] [place] [address] [facility] [place] [place] [address] Consulting General Surgery 09/25/19 Shanna June, OFFSHORE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 [address] [place] [address] Referring Family Medicine 10/19/19 Warp Drawer Relationship Specialty Start Date End Date Wally Foley MD [address] [place] [address] PCP - General Family Medicine 01/19/22 Antelmo Davey MD [address] [place] [facility] [place] [address] 09/25/19 [place] [address] [place] [address] Consulting General Surgery 09/25/19 Shanna June, OFFSHORE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 [address] [place] [address] Referring Family Medicine 10/19/19 Warp Drawer Relationship Specialty Start Date End Date Wally Foley MD [address] [place] [address] PCP - General Family Medicine 01/19/22 Anetlmo Davey MD [address] [place] [address] (Fax) 09/25/19 [place] [address] [place] [address] Consulting General Surgery 09/25/19 Shanna June, BETH [address] [place] [address] Referring Family Medicine 10/19/19 Warp Drawer Relationship Specialty Start Date End Date Wally Foley MD [address] [place] [address] PCP - General Family Medicine 01/19/22 Antelmo Davey MD [address] [place] [address] (Fax) 09/25/19 [place] [address] [place] [address] Consulting General Surgery 09/25/19 Shanna June, BETH [address] [place] [address] Referring Family Medicine 10/19/19 Warp Drawer Relationship Specialty Start Date End Date Wally Foley MD [address] [place] [address] PCP - General Family Medicine 01/19/22 Antelmo Davey MD [address] [place] [address] (Fax) 09/25/19 [place] [address] [place] [address] Consulting General Surgery 09/25/19 Shanna June, OFFSHORE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 [address] [place] [address] Referring Family Medicine 10/19/19 Warp Drawer Relationship Specialty Start Date End Date Wally Foley MD [address] [place] [address] PCP - General Family Medicine 01/19/22 Antelmo Davey MD [address] [place] [address] 09/25/19 [place] [address] [place] [address] Consulting General Surgery 09/25/19 Shanna June, OFFSHORE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 [address] [place] [address] Referring Family Medicine 10/19/19 Warp Drawer Relationship Specialty Start Date End Date Wally Foley MD [address] [place] [address] PCP - General Family Medicine 01/19/22 Antelmo Davey MD [address] [place] [address] (Fax) 09/25/[address] [place] [address] [facility] [place] [place] [address] Consulting General Surgery 09/25/19 Shanna June, OFFSHORE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 [address] [place] [address] Referring Family Medicine 10/19/19 Warp Drawer Relationship Specialty Start Date End Date Wally Foley MD [address] [place] [facility] [place] [address] PCP - General Family Medicine 01/19/22 Antelmo Davey MD [address] [place] [address] (Fax) 09/25/[address] [place] [address] [facility] [place] [place] [address] Consulting General Surgery 09/25/19 Shanna June, OFFSHORE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 [address] [place] [address] Referring Family Medicine 10/19/19 Warp Drawer Relationship Specialty Start Date End Date Wally Foley MD [address] [facility] [address] PCP - General Family Medicine 01/19/22 Antelmo Davey MD [address] [place] [address] (Fax) 09/25/[address] [place] [address] [facility] [place] [place] [address] Consulting General Surgery 09/25/19 Shanna June, OFFSHORE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 [address] [place] [address] Referring Family Medicine 10/19/19 Agustin Valentino [address] [facility] [address] [place] [address] Referring Family Medicine 05/13/22 Warp Drawer Relationship Specialty Start Date End Date Jaquan Morrow [address] [place] [address] PCP - General 06/16/22 Antelmo Davey MD [address] [place] [address] (Fax) 09/25/19 [place] [address] [place] [address] Consulting General Surgery 09/25/19 Shanna June, OFFSHORE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 [address] [place] [address] Referring Family Medicine 10/19/19 Agustin Valentino [address] [place] [address] [place] [address] Referring Family Medicine 05/13/22 Warp Drawer Relationship Specialty Start Date End Date Jaquan Morrow [address] [place] [address] PCP - General 06/16/22 Antelmo Davey MD [address] [place] [address] (Fax) 09/25/19 [place] [address] [place] [address] Consulting General Surgery 09/25/19 Shanna June, OFFSHORE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 [address] [place] [address] Referring Family Medicine 10/19/19 Agustin Valentino [address] [facility] [address] [place] [address] Referring Family Medicine 05/13/22 Warp Drawer Relationship Specialty Start Date End Date Jaquan Morrow [address] [place] [address] PCP - General 06/16/22 Antelmo Davey MD [address] [place] [address] 09/25/19 [place] [address] [place] [address] Consulting General Surgery 09/25/19 Shanna June, OFFSHORE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 [address] [place] [address] Referring Family Medicine 10/19/19 Agustin Valentino [address] [facility] [address] [place] [address] Referring Family Medicine 05/13/22 Warp Drawer Relationship Specialty Start Date End Date Jaquan Morrow [address] [place] [address] PCP - General 06/16/22 Antelmo Davey MD [address] [place] [address] 09/25/19 [place] [address] [place] [address] Consulting General Surgery 09/25/19 Shanna June, OFFSHORE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 [address] [place] [address] Referring Family Medicine 10/19/19 Agustin Valentino [address] [facility] [address] [place] [address] Referring Family Medicine 05/13/22 Warp Drawer Relationship Specialty Start Date End Date Jaquan Morrow [address] [place] [address] PCP - General 06/16/22 Antelmo Davey MD [address] [place] [address] (Fax) 09/25/19 [place] [address] [place] [address] Consulting General Surgery 09/25/19 Shanna June, OFFSHORE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 [address] [place] [address] Referring Family Medicine 10/19/19 Agustin Valentino [address] [place] [address] [place] [address] Referring Family Medicine 05/13/22 Warp Drawer Relationship Specialty Start Date End Date Jaquan Morrow [address] [place] [address] PCP - General 06/16/22 Antelmo Davey MD [address] [place] [address] 09/25/19 [place] [address] [place] [address] Consulting General Surgery 09/25/19 Shanna June, OFFSHORE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 [address] [place] [address] Referring Family Medicine 10/19/19 Agustin Valentino [address] [place] [address] Referring Family Medicine 05/13/22 Warp Drawer Relationship Specialty Start Date End Date Jaquan Morrow [address] [place] [address] PCP - General 06/16/22 Antelmo Davey MD [address] [place] [address] (Fax) 09/25/[address] [place] [address] [facility] [place] [address] Consulting General Surgery 09/25/19 Shanna June, OFFSHORE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 [address] [place] [address] Referring Family Medicine 10/19/19 Agustin Valentino [address] [address] Referring Family Medicine 05/13/22 Warp Drawer Relationship Specialty Start Date End Date Jaquan Morrow [address] [place] [address] PCP - General 06/16/22 Antelmo Davey MD [address] [place] [address] (Fax) 09/25/[address] [place] [address] [facility] [place] [place] [address] Consulting General Surgery 09/25/19 Shanna June CNP [address] [place] [address] Referring Family Medicine 10/19/19 Agustin Valentino [address] [facility] 150 [place] [address] Referring Family Medicine 05/13/22 Warp Drawer Relationship Specialty Start Date End Date Jaquan Morrow [address] [place] [address] PCP - General 06/16/22 Antelmo Davey MD [address] [place] [address] (Fax) 09/25/19 [place] [address] [place] [address] Consulting General Surgery 09/25/19 Shanna June, BETH [address] [place] [address] Referring Family Medicine 10/19/19 Agustin Valentino 112 [facility] 150 [place] [address] Referring Family Medicine 05/13/22 Warp Drawer Relationship Specialty Start Date End Date Jaquan Morrow [address] [place] [address] PCP - General 06/16/22 Antelmo Davey MD [address] [place] [address] (Fax) 09/25/19 [place] [address] [place] [address] Consulting General Surgery 09/25/19 Shanna June, BETH [address] [place] [address] Referring Family Medicine 10/19/19 Agustin Valentino [address] [place] [address] [place] [address] Referring Family Medicine 05/13/22 Warp Drawer Relationship Specialty Start Date End Date Jaquan Morrow [address] [place] [address] PCP - General 06/16/22 Antelmo Davey MD [address] [place] [address] (Fax) 09/25/19 [place] [address] [place] [address] Consulting General Surgery 09/25/19 Shanna June, OFFSHORE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 [address] [place] [address] Referring Family Medicine 10/19/19 Agustin Valentino [address] [address] [place] [address] Referring Family Medicine 05/13/22 Warp Drawer Relationship Specialty Start Date End Date Jaquan Morrow [address] [place] [address] PCP - General 06/16/22 Antelmo Davey MD [address] [place] [address] (Fax) 09/25/19 [place] [address] [place] [address] Consulting General Surgery 09/25/19 Shanna June, OFFSHORE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 [address] [place] [address] Referring Family Medicine 10/19/19 Agustin Valentino [address] [facility] 150 [place] [address] Referring Family Medicine 05/13/22 Warp Drawer Relationship Specialty Start Date End Date Jaquan Morrow [address] [place] [address] PCP - General 06/16/22 Antelmo Davey MD [address] [facility] [place] [address] (Fax) 09/25/19 [place] [address] [place] [address] Consulting General Surgery 09/25/19 Shanna June, OFFSHORE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 [address] [place] [address] Referring Family Medicine 10/19/19 Agustin Valentino, PA [address] [facility] [address] [place] [address] Referring Family Medicine 05/13/22 Warp Drawer Relationship Specialty Start Date End Date Jaquan Morrow [address] [place] [address] PCP - General 06/16/22 Antelmo Davey MD [address] [facility] [place] [address] 09/25/19 [place] [address] [place] [address] Consulting General Surgery 09/25/19 Shanna June CNP [address] [place] [address] Referring Family Medicine 10/19/19 Agustin Valentino PA [address] [place] [address] [place] [address] Referring Family Medicine 05/13/22 Warp Drawer Relationship Specialty Start Date End Date Wally Foley [address] [place] [id number] PCP - General Specialist 07/27/21 Warp Drawer Relationship Specialty Start Date End Date Shanna June FNP [address] [place] [address] PCP - General Nurse Practitioner - Family 01/30/20 Warp Drawer Relationship Specialty Start Date End Date Jaquan Morrow [address] [place] [address] PCP - General 06/16/22 Antelmo Davey MD [address] [place] [address] (Fax) 09/25/19 [place] [address] [place] [address] Consulting General Surgery 09/25/19 Shanna June, BETH [address] [place] [address] Referring Family Medicine 10/19/19 Agustin Valentino PA [address] [place] [address] [place] [address] Referring Family Medicine 05/13/22 Warp Drawer Relationship Specialty Start Date End Date Jaquan Morrow [address] [place] [address] PCP - General 06/16/22 Antelmo Davey MD [address] [place] [address] (Fax) 09/25/19 [place] [address] [place] [address] Consulting General Surgery 09/25/19 Shanna June, BETH [address] [place] [address] Referring Family Medicine 10/19/19 Agustin Valentino PA [address] [place] [address] Referring Family Medicine 05/13/22 Warp Drawer Relationship Specialty Start Date End Date Linda Morrowdi [address] [place] [address] PCP - General 06/16/22 Antelmo Davey MD [address] [facility] [address] (Fax) 09/25/19 [place] [address] [place] [address] Consulting General Surgery 09/25/19 Shanna June, BETH [address] [place] [address] Referring Family Medicine 10/19/19 Agustin Valentino PA [address] [place] [address] [place] [address] Referring Family Medicine 05/13/22 Warp Drawer Relationship Specialty Start Date End Date Linda Morrowdi [address] [place] [address] PCP - General 06/16/22 Antelmo Davey MD [address] [place] [address] (Fax) 09/25/19 [place] [address] [place] [address] Consulting General Surgery 09/25/19 Shanna June, BETH [address] [place] [address] Referring Family Medicine 10/19/19 Agustin Valentino PA [address] [facility] 150 [place] [address] Referring Family Medicine 05/13/22 Warp Drawer Relationship Specialty Start Date End Date Jaquan Morrow [address] [place] [address] PCP - General 06/16/22 Antelmo Davey MD [address] [place] [address] (Fax) 09/25/19 [place] [address] [place] [address] Consulting General Surgery 09/25/19 Shanna June CNP [address] [place] [address] Referring Family Medicine 10/19/19 Agustin Valentino PA [address] [facility] [place] [address] Referring Family Medicine 05/13/22 Warp Drawer Relationship Specialty Start Date End Date Jaquan Morrow [address] [place] [address] PCP - General 06/16/22 Antelmo Davey MD [address] [place] [address] (Fax) 09/25/19 [place] [address] [place] [address] Consulting General Surgery 09/25/19 Shanna June, BETH [address] [place] [address] Referring Family Medicine 10/19/19 Agustin Valentino PA [address] [facility] [address] [place] [address] Referring Family Medicine 05/13/22 Warp Drawer Relationship Specialty Start Date End Date Jaquan Morrow [address] [place] [address] PCP - General 06/16/22 Antelmo Davey MD [address] [place] [address] (Fax) 09/25/19 [place] [address] [place] [address] Consulting General Surgery 09/25/19 Shanna June, BETH [address] [place] [address] Referring Family Medicine 10/19/19 Agustin Valentino PA [address] [place] [address] Referring Family Medicine 05/13/22 Warp Drawer Relationship Specialty Start Date End Date Jaquan Morrow [address] [place] [address] PCP - General 06/16/22 Antelmo Davey MD [address] [place] [address] (Fax) 09/25/19 [place] [address] [place] [address] Consulting General Surgery 09/25/19 Shanna June, OFFSHORE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 [address] [place] [address] Referring Family Medicine 10/19/19 Agustin Valentino PA [address] [place] [address] [address] [place] [address] Referring Family Medicine 05/13/22 Warp Drawer Relationship Specialty Start Date End Date Jaquan Morrow [address] [place] [address] PCP - General 06/16/22 Antelmo Davey MD [address] [place] [address] (Fax) 09/25/19 [place] [address] [place] [address] Consulting General Surgery 09/25/19 Shanna June, OFFSHORE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 [address] [place] [address] Referring Family Medicine 10/19/19 Agustin Valentino PA [address] [place] [address] [place] [address] Referring Family Medicine 05/13/22 Warp Drawer Relationship Specialty Start Date End Date Linda oMrrowdi [address] [place] [address] PCP - General 06/16/22 Antelmo Davey MD [address] [place] [address] (Fax) 09/25/19 [place] [address] [place] [address] Consulting General Surgery 09/25/19 Shanna June, OFFSHORE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 [address] [place] [address] Referring Family Medicine 10/19/19 Agustin Valentino PA [address] [place] [address], [place] [address] Referring Family Medicine 05/13/22 Warp Drawer Relationship Specialty Start Date End Date Cristhian, Jaquan [address] [place] [address] PCP - General 06/16/22 Antelmo Davey MD [address] [place] [address] (Fax) 09/25/19 [place] [address] [place] [address] Consulting General Surgery 09/25/19 Shanna June, BETH [address] [place] [address] Referring Family Medicine 10/19/19 Agustin Valentino PA [address] [place] [address] [place] [address] Referring Family Medicine 05/13/22 Warp Drawer Relationship Specialty Start Date End Date Jaquan Morrow [address] [place] [address] PCP - General 06/16/22 Antelmo Davey MD [address] [place] [address] (Fax) 09/25/19 [place] [address] [place] [address] Consulting General Surgery 09/25/19 Shanna June CNP [address] [place] [address] Referring Family Medicine 10/19/19 Agustin Valentino PA [address] [facility] [place] [address] Referring Family Medicine 05/13/22 Warp Drawer Relationship Specialty Start Date End Date Jaquan Morrow [address] [place] [address] PCP - General 06/16/22 Antelmo Davey MD [address] [place] [address] (Fax) 09/25/19 [place] [address] [place] [address] Consulting General Surgery 09/25/19 Shanna June, BETH [address] [place] [address] Referring Family Medicine 10/19/19 Agustin Valentino PA [address] [facility] [address] [place] [address] Referring Family Medicine 05/13/22 Warp Drawer Relationship Specialty Start Date End Date Jaquan Morrow [address] [place] [address] PCP - General 06/16/22 Antelmo Davey MD [address] [place] [address] (Fax) 09/25/19 [place] [address] [place] [address] Consulting General Surgery 09/25/19 Shanna June, BETH [address] [place] [address] Referring Family Medicine 10/19/19 Agustin Valentino PA [address] [place] [address] [place] [address] Referring Family Medicine 05/13/22 Warp Drawer Relationship Specialty Start Date End Date Jaquan Morrow [address] [place] [address] PCP - General 06/16/22 Antelmo Davey MD [address] [place] [address] 09/25/19 [place] [address] [place] [address] Consulting General Surgery 09/25/19 Shanna June, OFFSHORE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 [address] [place] [address] Referring Family Medicine 10/19/19 Agustin Valentino PA [address] [facility] [address] [place] [address] Referring Family Medicine 05/13/22 Warp Drawer Relationship Specialty Start Date End Date Jaquan Morrow [address] [place] [address] PCP - General 06/16/22 Antelmo Davey MD [address] [facility] [place] [address] 09/25/19 [place] [address] [place] [address] Consulting General Surgery 09/25/19 Shanna June, OFFSHORE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 [address] [place] [address] Referring Family Medicine 10/19/19 Agustin Valentino PA [address] [place] [address] [place] [address] Referring Family Medicine 05/13/22 Warp Drawer Relationship Specialty Start Date End Date Jaquan Morrow [address] [place] [address] PCP - General 06/16/22 Antelmo Davey MD [address] [place] [address] (Fax) 09/25/19 [place] [address] [place] [address] Consulting General Surgery 09/25/19 Shanna June, BETH [address] [place] [address] Referring Family Medicine 10/19/19 Agustin Valentino PA [address] [place] [address] [place] [address] Referring Family Medicine 05/13/22 Warp Drawer Relationship Specialty Start Date End Date Jaquan Morrow [address] [place] [address] PCP - General 06/16/22 Antelmo Davey MD [address] [place] [address] (Fax) 09/25/19 [place] [address] [place] [address] Consulting General Surgery 09/25/19 Shanna June, BETH [address] [place] [address] Referring Family Medicine 10/19/19 Agustin Valentino PA [address] [place] [address] Referring Family Medicine 05/13/22 Warp Drawer Relationship Specialty Start Date End Date Jaquan Morrow [address] [place] [address] PCP - General 06/16/22 Antelmo Davey MD [address] [place] [address] (Fax) 09/25/19 [place] [address] [place] [address] Consulting General Surgery 09/25/19 Shanna June CNP [address] [place] [address] Referring Family Medicine 10/19/19 Agustin Valentino PA [address] [place] [address] [place] [address] Referring Family Medicine 05/13/22 Warp Drawer Relationship Specialty Start Date End Date Jaquan Morrow [address] [place] [address] PCP - General 06/16/22 Antelmo Davey MD [address] [place] [address] (Fax) 09/25/19 [place] [address] [place] [address] Consulting General Surgery 09/25/19 Shanna June, BETH [address] [place] [address] Referring Family Medicine 10/19/19 Agustin Valentino PA [address] [facility] [address] [place] [address] Referring Family Medicine 05/13/22 Warp Drawer Relationship Specialty Start Date End Date Jaquan Morrow, SPEECH PATHOLOGY SUPERVISOR.OFFSHORE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 [address] [place] [address] PCP - General 06/16/22 Antelmo Davey MD [address] [place] [address] 09/25/19 [place] [address] [place] [address] Consulting General Surgery 09/25/19 Shanna June, BETH [address] [place] [address] Referring Family Medicine 10/19/19 Agustin Valentino, PA [address] [facility] [address] [place] [address] Referring Family Medicine 05/13/22 Warp Drawer Relationship Specialty Start Date End Date Jaquan Morrow, SPEECH PATHOLOGY SUPERVISOR.OFFSHORE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 [address] [place] [address] PCP - General 06/16/22 Antelmo Davey MD [address] [place] [address] (Fax) 09/25/19 [place] [address] [place] [address] Consulting General Surgery 09/25/19 Shanna June, BETH [address] [place] [address] Referring Family Medicine 10/19/19 Agustin Valentino PA [address] [address] [place] [address] Referring Family Medicine 05/13/22 Warp Drawer Relationship Specialty Start Date End Date Jaquan Morrow, SPEECH PATHOLOGY SUPERVISOR.OFFSHORE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 [address] [place] [address] PCP - General 06/16/22 Antelmo Davey MD [address] [place] [address] (Fax) 09/25/19 [place] [address] [place] [address] Consulting General Surgery 09/25/19 Shanna June CNP [address] [place] [address] Referring Family Medicine 10/19/19 Agustin Valentino PA [address] [address] [place] [address] Referring Family Medicine 05/13/22 Warp Drawer Relationship Specialty Start Date End Date Jaquan Morrow, SPEECH PATHOLOGY SUPERVISOR.OFFSHORE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 [address] [place] [address] PCP - General 06/16/22 Antelmo Davey MD [address] [place] [address] (Fax) 09/25/19 [place] [address] [place] [address] Consulting General Surgery 09/25/19 Shanna June CNP [address] [place] [address] Referring Family Medicine 10/19/19 Agustin Valentino PA [address] [place] [address] Referring Family Medicine 05/13/22 Warp Drawer Relationship Specialty Start Date End Date Jaquan Morrow, SPEECH PATHOLOGY SUPERVISOR.OFFSHORE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 [address] [place] [address] PCP - General 06/16/22 Antelmo Davey MD [address] [place] [address] 09/25/19 [place] [address] [place] [address] Consulting General Surgery 09/25/19 Shanna June CNP [address] [place] [address] Referring Family Medicine 10/19/19 Agustin Valentino PA [address] [place] [address] Referring Family Medicine 05/13/22 Team Status: Active Member Role Status Dates Jaquan Morrow 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 Primary Care Provider Active Team Status: Inactive Member Role Status Dates Jaquan Morrow NP-C Primary Care Provider Active Claus Obrien DO Emergency Provider Active Roseline Mejia DO RES Active Warp Drawer Relationship Specialty Start Date End Date Generic Provider, No Assigned PcpMD [address] [place] [address] PCP - General [facility] Medicine 01/02/23 Warp Drawer Relationship Specialty Start Date End Date Generic Provider, No Assigned PcpMD [address] [place] [address] PCP - [facility] 01/02/23 Team Status: Inactive Member Role Status [...] 06, 2023 End: April 06, 2023 Trace Loweyr [facility]- Emergency Provider Active Start: April 06, 2023 End: April 06, 2023 Warp Drawer Relationship Specialty Start Date End Date Generic Provider, No Assigned PcpMD [address] [place] [address] PCP - [facility] 01/02/23 Warp Drawer Relationship Specialty Start Date End Date Jaquan Morrow APRN.CNP [address] [place] [address] PCP - General 06/16/22 Antelmo Davey MD [address] [place] [address] (Fax) 09/25/19 [place] [address] [place] [address] Consulting General Surgery 09/25/19 Shanna June CNP [address] [place] [address] Referring Family Medicine 10/19/19 Agustin Valentino PA [address] [facility] [place] [address] Referring Family Medicine 05/13/22 Warp Drawer Relationship Specialty Start Date End Date Generic Provider, No Assigned PcpMD [address] [place] [id number] PCP - General Family Medicine 01/02/23 Warp Drawer Relationship Specialty Start Date End Date Jaquan Morrow, SPEECH PATHOLOGY SUPERVISOR.OFFSHORE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 [address] [place] [address] PCP - General 06/16/22 Antelmo Davey MD [address] [place] [address] (Fax) 09/25/19 [place] [address] [place] [address] Consulting General Surgery 09/25/19 Shanna June CNP [address] [place] [address] Referring Family Medicine 10/19/19 Agustin Valentino PA [address] [facility] [address] [place] [address] Referring Family Medicine 05/13/22 Warp Drawer Relationship Specialty Start Date End Date Jaquan Morrow, SPEECH PATHOLOGY SUPERVISOR.OFFSHORE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 [address] [place] [address] PCP - General 06/16/22 Antelmo Davey MD [address] [facility] [address] (Fax) 09/25/19 [place] [address] [place] [address] Consulting General Surgery 09/25/19 Shanna June, BETH [address] [place] [address] Referring Family Medicine 10/19/19 Agustin Valentino PA [address] [facility] [address] [place] [address] Referring Family Medicine 05/13/22 Warp Drawer Relationship Specialty Start Date End Date Jaquan Morrow, SPEECH PATHOLOGY SUPERVISOR.OFFSHORE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 [address] [place] [address] PCP - General 06/16/22 Antelmo Davey MD [address] [facility] [place] [address] (Fax) 09/25/19 [place] [address] [place] [address] Consulting General Surgery 09/25/19 Shanna June CNP [address] [place] [address] Referring Family Medicine 10/19/19 Agustin Valentino PA [address] [facility] [address] [place] [address] Referring Family Medicine 05/13/22 Warp Drawer Relationship Specialty Start Date End Date Jaquan Morrow, SPEECH PATHOLOGY SUPERVISOR.OFFSHORE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 [address] [place] [address] PCP - General 06/16/22 Antelmo Davey MD [address] [place] [address] 09/25/19 [place] [address] [place] [address] Consulting General Surgery 09/25/19 Shanna June CNP [address] [place] [address] Referring Family Medicine 10/19/19 Agustin Valentino PA [address] [address] [place] [address] Referring Family Medicine 05/13/22 Warp Drawer Relationship Specialty Start Date End Date Jaquan Morrow, SPEECH PATHOLOGY SUPERVISOR.OFFSHORE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 [address] [place] [address] PCP - General 06/16/22 Antelmo Davey MD [address] [place] [address] 09/25/[address] [place] [address] [facility] [place] [address] Consulting General Surgery 09/25/19 Shanna June CNP [address] [place] [address] Referring Family Medicine 10/19/19 Agustin Valentino PA [address] [place] [address] Referring Family Medicine 05/13/22 Warp Drawer Relationship Specialty Start Date End Date Generic Provider, No Assigned PcpMD PCP - General Family Medicine 01/02/23 Warp Drawer Relationship Specialty Start Date End Date Jaquan Morrow, SPEECH PATHOLOGY SUPERVISOR.OFFSHORE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 [address] [place] [address] PCP - General 06/16/22 Antelmo Davey MD [address] [place] [address] (Fax) 09/25/19 [place] [address] [place] [address] Consulting General Surgery 09/25/19 Shanna June CNP [address] [place] [address] Referring Family Medicine 10/19/19 Agustin Valentino PA [address] [place] [address] Referring Family Medicine 05/13/22 Warp Drawer Relationship Specialty Start Date End Date Generic Provider, [place] [address] PCP - General [facility] 06/29/23 Warp Drawer Relationship Specialty Start Date End Date Generic Provider, No [place] [address] PCP - General [facility] 06/29/23 Warp Drawer Relationship Specialty Start Date End Date Jaquan Morrow APRN.OFFSHORE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 [address] [place] [address] PCP - General 06/16/22 Antelmo Davey MD [address] [place] [address] 09/25/19 [place] [address] [place] [address] Consulting General Surgery 09/25/19 Shanna June CNP [address] [place] [address] Referring Family Medicine 10/19/19 Agustin Valentino PA [address] [place] [address] Referring Family Medicine 05/13/22 Warp Drawer Relationship Specialty Start Date End Date Cristhian, Jaquan L, SPEECH PATHOLOGY SUPERVISOR.OFFSHORE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 [address] [place] [address] PCP - General 06/16/22 Antelmo Davey MD [address] [place] [address] (Fax) 09/25/19 [place] [address] [place] [address] Consulting General Surgery 09/25/19 Shanna June, BETH [address] [place] [address] Referring Family Medicine 10/19/19 Agustin Valentino PA [address] [place] [address], [place] [address] Referring Family Medicine 05/13/22 Warp Drawer Relationship Specialty Start Date End Date Jaquan Morrow, SPEECH PATHOLOGY SUPERVISOR.OFFSHORE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 [address] [place] [address] PCP - General 06/16/22 Antelmo Davey MD [address] [place] [address] (Fax) 09/25/19 [place] [address] [place] [address] Consulting General Surgery 09/25/19 Shanna June CNP [address] [place] [address] Referring Family Medicine 10/19/19 Agustin Valentino PA [address] [facility] 150 [place] [address] Referring Family Medicine 05/13/22 Warp Drawer Relationship Specialty Start Date End Date Jaquan Morrow, SPEECH PATHOLOGY SUPERVISOR.OFFSHORE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 [address] [place] [address] PCP - General 06/16/22 Antelmo Davey MD [address] [place] [address] (Fax) 09/25/19 [place] [address] [place] [address] Consulting General Surgery 09/25/19 Shanna June, BETH [address] [place] [address] Referring Family Medicine 10/19/19 Agustin Valentino PA [address] [facility] 150 [place] [address] Referring Family Medicine 05/13/22 Warp Drawer Relationship Specialty Start Date End Date Jaquan Morrow, SPEECH PATHOLOGY SUPERVISOR.OFFSHORE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 [address] [place] [address] PCP - General 06/16/22 Antelmo Davey MD [address] [facility] [address] (Fax) 09/25/19 [place] [address] [place] [address] Consulting General Surgery 09/25/19 Shanna June CNP [address] [place] [address] Referring Family Medicine 10/19/19 Agustin Valentino PA [address] [address] [place], [place] [address] Referring Family Medicine 05/13/22 Team Status: Inactive [...] July 17, 2023 End: July 17, 2023 Warp Drawer Relationship Specialty Start Date End Date Jaquan Morrow, SPEECH PATHOLOGY SUPERVISOR.OFFSHORE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 [address] [place] [address] PCP - General 06/16/22 Antelmo Davey MD [address] [place] [address] 09/25/19 [place] [address] [place] [address] Consulting General Surgery 09/25/19 Shanna June CNP [address] [place] [address] Referring Family Medicine 10/19/19 Agustin Valentino PA [address] [address] [place] [address] Referring Family Medicine 05/13/22 Team Status: Inactive Member Role Status Dates Thomas Calix MD Primary Care Provider Active Start: July 31, 2023 End: July 31, 2023 Jeramy Cunningham DO Emergency Provider Active Sta rt: July 31, 2023 End: July 31, 2023 Warp Drawer Relationship Specialty Start Date End Date Thomas Calix MD [address] [place] [address] PCP - General Family Medicine 07/30/23 Antelmo Davey MD [address] [place] [address] 09/25/19 [place] [address] [place] [address] Consulting General Surgery 09/25/19 Shanna June, BETH [address] [place] [address] Referring Family Medicine 10/19/19 Agustin Valentino PA [address] [address] [place] [address] Referring Family Medicine 05/13/22 Warp Drawer Relationship Specialty Start Date End Date Thomas Calix MD [address] [place] [address] PCP - General Family Medicine 07/30/23 Antelmo Davey MD [address] [place] [address] 09/25/19 [place] [address] [place] [address] Consulting General Surgery 09/25/19 Shanna June, BETH [address] [place] [address] Referring Family Medicine 10/19/19 Agustin Valentino PA [address] [facility] [facility] [address] [place] [address] Referring Family Medicine 05/13/22 Warp Drawer Relationship Specialty Start Date End Date Thomas Calix MD [address] [place] [address] PCP - General Family Medicine 07/30/23 Antelmo Davey MD [address] [place] [address] 09/25/19 [place] [address] [place] [address] Consulting General Surgery 09/25/19 Shanna June, OFFSHORE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 [address] [place] [address] Referring Family Medicine 10/19/19 Agustin Valentino PA [address] [address] Referring Family Medicine 05/13/22 Warp Drawer Relationship Specialty Start Date End Date Thomas Calix MD [address] [place] [address] PCP - General Family Medicine 07/30/23 Antelmo Davey MD [address] [place] [address] (Fax) 09/25/19 [place] [address] [place] [address] Consulting General Surgery 09/25/19 Shanna June CNP [address] [place] [address] Referring Family Medicine 10/19/19 Agustin Valentino PA [address] [address] Referring Family Medicine 05/13/22 Warp Drawer Relationship Specialty Start Date End Date Thomas Calix MD [address] [place] [address] PCP - General Family Medicine 07/30/23 Antelmo Davey MD [address] [place] [address] (Fax) 09/25/19 [place] [address] [place] [address] Consulting General Surgery 09/25/19 Shanna June, BETH [address] [place] [address] Referring Family Medicine 10/19/19 Agustin Valentino PA [address] [facility] 150 [place] [address] Referring Family Medicine 05/13/22 Warp Drawer Relationship Specialty Start Date End Date Thomas Calix MD [address] [place] [address] PCP - General Family Medicine 07/30/23 Antelmo Davey MD [address] [place] [address] 09/25/19 [place] [address] [place] [address] Consulting General Surgery 09/25/19 Shanna June, BETH [address] [place] [address] Referring Family Medicine 10/19/19 Agustin Valentino PA [address] [facility] [facility] [address] [place] [address] Referring Family Medicine 05/13/22 Team Status: Inactive [...] August 21, 2023 End: August 21, 2023 Warp Drawer Relationship Specialty Start Date End Date Thomas Calix MD [address] [place] [facility] [address] PCP - General Family Medicine 07/30/23 Antelmo Davey MD [address] [place] [address] 09/25/19 [place] [address] [place] [address] Consulting General Surgery 09/25/19 Shanna June CNP [address] [place] [address] Referring Family Medicine 10/19/19 Agustin Valentino PA [address] [place] [address] Referring Family Medicine 05/13/22 Warp Drawer Relationship Specialty Start Date End Date Thomas Calix MD [address] [place] [facility] [place] [address] PCP - General Family Medicine 07/30/23 Antelmo Davey MD [address] [place] [address] 09/25/19 [place] [address] [place] [address] Consulting General Surgery 09/25/19 Shanna June CNP [address] [place] [address] Referring Family Medicine 10/19/19 Agustin Valentino PA [address] [address] [place] [address] Referring Family Medicine 05/13/22 Warp Drawer Relationship Specialty Start Date End Date Thomas Calix MD [address] [place] [address] PCP - General Family Medicine 07/30/23 Antelmo Davey MD [address] [place] [address] 09/25/19 [place] [address] [place] [address] Consulting General Surgery 09/25/19 Shanna June, BETH [address] [place] [address] Referring Family Medicine 10/19/19 Agustin Valentino PA [address] [place] [address] Referring Family Medicine 05/13/22 Warp Drawer Relationship Specialty Start Date End Date Thomas Calix MD [address] [place] [address] PCP - General Family Medicine 07/30/23 Antelmo Davey MD [address] [place] [address] (Fax) 09/25/19 [place] [address] [place] [address] Consulting General Surgery 09/25/19 Shanna June, BETH [address] [place] [address] Referring Family Medicine 10/19/19 Agustin Valentino PA [address] [facility] [address] [place] [address] Referring Family Medicine 05/13/22 Warp Drawer Relationship Specialty Start Date End Date Thomas Calix MD [address] [place] [address] PCP - General Family Medicine 07/30/23 Antelmo Davey MD [address] [place] [address] (Fax) 09/25/19 [place] [address] [place] [address] Consulting General Surgery 09/25/19 Shanna June, OFFSHORE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 [address] [place] [address] Referring Family Medicine 10/19/19 Agustin Valentino PA [address] [facility] 150 [place] [address] Referring Family Medicine 05/13/22 Warp Drawer Relationship Specialty Start Date End Date Thomas Calix MD [address] [place] [address] PCP - General Family Medicine 07/30/23 Antelmo Davey MD [address] [place] [address] (Fax) 09/25/19 [place] [address] [place] [address] Consulting General Surgery 09/25/19 Shanna June CNP [address] [place] [address] Referring Family Medicine 10/19/19 Agustin Valentino PA [address] [address] Referring Family Medicine 05/13/22 Warp Drawer Relationship Specialty Start Date End Date Thomas Calix MD [address] [place] [address] PCP - General Family Medicine 07/30/23 Antelmo Davey MD [address] [place] [address] (Fax) 09/25/19 [place] [address] [place] [address] Consulting General Surgery 09/25/19 Shanna June, BETH [address] [place] [address] Referring Family Medicine 10/19/19 Agustin Valentino PA [address] [facility] [address] [place] [address] Referring Family Medicine 05/13/22 Warp Drawer Relationship Specialty Start Date End Date Thomas Calix MD [address] [place] [address] PCP - General Family Medicine 07/30/23 Antelmo Davey MD [address] [place] [address] 09/25/19 [place] [address] [place] [address] Consulting General Surgery 09/25/19 Shanna June, BETH [address] [place] [address] Referring Family Medicine 10/19/19 Agustin Valentino PA [address] [facility] [address] [place] [address] Referring Family Medicine 05/13/22 Warp Drawer Relationship Specialty Start Date End Date Thomas Calix MD [address] [place] [address] PCP - General Family Medicine 07/30/23 Antelmo Davey MD [address] [place] [address] 09/25/19 [place] [address] [place] [address] Consulting General Surgery 09/25/19 Shanna June CNP [address] [place] [address] Referring Family Medicine 10/19/19 Agustin Valentino PA [address] [place] [address] Referring Family Medicine 05/13/22 Warp Drawer Relationship Specialty Start Date End Date Thomas Calix MD [address] [place] [address] PCP - General Family Medicine 07/30/23 Antelmo Davey MD [address] [place] [address] 09/25/19 [place] [address] [place] [address] Consulting General Surgery 09/25/19 Shanna June CNP [address] [place] [address] Referring Family Medicine 10/19/19 Agustin Valentino PA [address] [address] Referring Family Medicine 05/13/22 Warp Drawer Relationship Specialty Start Date End Date Thomas Calix MD [address] [place] [address] PCP - General Family Medicine 07/30/23 Antelmo Davey MD [address] [place] [address] (Fax) 09/25/19 [place] [address] [place] [address] Consulting General Surgery 09/25/19 Shanna June CNP [address] [place] [address] Referring Family Medicine 10/19/19 Agustin Valentino PA [address] [place] [address] [place] [address] Referring Family Medicine 05/13/22 Warp Drawer Relationship Specialty Start Date End Date Thomas Calix MD [address] [place] [address] PCP - General Family Medicine 07/30/23 Antelmo Davey MD [address] [place] [address] (Fax) 09/25/19 [place] [address] [place] [address] Consulting General Surgery 09/25/19 Shanna June, BETH [address] [place] [address] Referring Family Medicine 10/19/19 Agustin Valentino PA [address] [facility] [address] [place] [address] Referring Family Medicine 05/13/22 Warp Drawer Relationship Specialty Start Date End Date Thomas Calix MD [address] [place] [address] PCP - General Family Medicine 07/30/23 Antelmo Davey MD [address] [place] [address] (Fax) 09/25/19 [place] [address] [place] [address] Consulting General Surgery 09/25/19 Shanna June CNP [address] [place] [address] Referring Family Medicine 10/19/19 Agustin Valentino PA [address] [facility] [address] [place] [address] Referring Family Medicine 05/13/22 Warp Drawer Relationship Specialty Start Date End Date Thomas Calix MD [address] [place] [address] PCP - General Family Medicine 07/30/23 Antelmo Davey MD [address] [place] [address] 09/25/19 [place] [address] [place] [address] Consulting General Surgery 09/25/19 Shanna June, BETH [address] [place] [address] Referring Family Medicine 10/19/19 Agustin Valentino PA [address] [facility] [address] [place] [address] Referring Family Medicine 05/13/22 Warp Drawer Relationship Specialty Start Date End Date Thomas Calix MD [address] [place] [address] PCP - General Family Medicine 07/30/23 Antelmo Davey MD [address] [place] [address] 09/25/19 [place] [address] [place] [address] Consulting General Surgery 09/25/19 Shanna June, OFF[employer]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 [address] [place] [address] Referring Family Medicine 10/19/19 Agustin Valentino PA [address] [address] [place] [address] Referring Family Medicine 05/13/22 Warp Drawer Relationship Specialty Start Date End Date Thomas Calix MD [address] [place] [address] PCP - General Family Medicine 07/30/23 Antelmo Davey MD [address] [place] [address] (Fax) 09/25/19 [place] [address] [place] [address] Consulting General Surgery 09/25/19 Shanna June, BETH [address] [place] [address] Referring Family Medicine 10/19/19 Agustin Valentino PA [address] [place] [address], [place] [address] Referring Family Medicine 05/13/22 Warp Drawer Relationship Specialty Start Date End Date Thomas Calix MD [address] [place] [address] PCP - General Family Medicine 07/30/23 Antelmo Davey MD [address] [place] [address] (Fax) 09/25/19 [place] [address] [place] [address] Consulting General Surgery 09/25/19 Shanna June, BETH [address] [place] [address] Referring Family Medicine 10/19/19 Agustin Valentino PA [address] [facility] [address] [place] [address] Referring Family Medicine 05/13/22 Warp Drawer Relationship Specialty Start Date End Date Thomas Calix MD [address] [place] [address] PCP - General Family Medicine 07/30/23 Antelmo Davey MD [address] [place] [address] (Fax) 09/25/19 [place] [address] [place] [address] Consulting General Surgery 09/25/19 Shanna June CNP [address] [place] [address] Referring Family Medicine 10/19/19 Agustin Valentino PA [address] [address] Referring Family Medicine 05/13/22 Warp Drawer Relationship Specialty Start Date End Date Thomas Calix MD [address] [place] [address] PCP - General Family Medicine 07/30/23 Antelmo Davey MD [address] [place] [address] (Fax) 09/25/19 [place] [address] [place] [address] Consulting General Surgery 09/25/19 Shanna June CNP [address] [place] [address] Referring Family Medicine 10/19/19 Agustin Valentino PA [address] [facility] [address] [place] [address] Referring Family Medicine 05/13/22 Warp Drawer Relationship Specialty Start Date End Date Thomas Calix MD [address] [place] [address] PCP - General Family Medicine 07/30/23 Antelmo Davey MD [address] [place] [address] 09/25/19 [place] [address] [place] [address] Consulting General Surgery 09/25/19 Shanna June, BETH [address] [place] [address] Referring Family Medicine 10/19/19 Agustin Valentino PA [address] [address] [place] [address] Referring Family Medicine 05/13/22 Warp Drawer Relationship Specialty Start Date End Date Thomas Calix MD [address] [place] [facility] [place] [address] PCP - General Family Medicine 07/30/23 Antelmo Davey MD [address] [place] [address] (Fax) 09/25/19 [place] [address] [place] [address] Consulting General Surgery 09/25/19 Shanna June, BETH [address] [place] [address] Referring Family Medicine 10/19/19 Agustin Valentino PA [address] [place], [place] [address], [place] [address] Referring Family Medicine 05/13/22 Warp Drawer Relationship Specialty Start Date End Date Thomas Calix MD [address] [place] [address] PCP - General Family Medicine 07/30/23 Antelmo Davey MD [address] [place] [address] (Fax) 09/25/19 [place] [address] [place] [address] Consulting General Surgery 09/25/19 Shanna June, 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 [address] [place] [address] Referring Family Medicine 10/19/19 Agustin Valentino PA [address] [address] Referring Family Medicine 05/13/22 Warp Drawer Relationship Specialty Start Date End Date Thomas Calix MD [address] [facility] [place] [place] [address] PCP - General Family Medicine 07/30/23 Antelmo Davey MD [address] [facility] [place] [address] 09/25/19 [place] [address] [place] [address] Consulting General Surgery 09/25/19 Shanna June CNP [address] [place] [address] Referring Family Medicine 10/19/19 Agustin Valentino PA [address] [address] Referring Family Medicine 05/13/22 Source Comments (unrecognize d section and content) In the event this informatio n is protected by the Federal Confidentiality of Alcohol and Drug Abuse Patient Records regulations: The Federal rules restrict any use of the information to criminally investigate or prosecute any alcohol or drug abuse patient.[facility] the event this information is protected by the Federal Confidentiality of Alcohol and Drug Abuse Patient Records regulations: The Federal rules restrict any use of the information to criminally investigate or prosecute any alcohol or drug abuse patient.[facility]In the event this information is protected by the Federal Confidentiality of Alcohol and Drug Abuse Patient Records regulations: The Federal rules restrict any use of the information to criminally investigate or prosecute any alcohol or drug abuse patient.[facility]In the event this information is protected by the Federal Confidentiality of Alcohol and Drug Abuse Patient Records regulations: The Federal rules restrict any use of the information to criminally investigate or prosecute any alcohol or drug abuse patient.[facility]In the event this information is protected by the Federal Confidentiality of Alcohol and Drug Abuse Patient Records regulations: The Federal rules restrict any use of the information to criminally investigate or prosecute any alcohol or drug abuse patient.[facility]In the event this information is protected by the Federal Confidentiality of Alcohol and Drug Abuse Patient Records regulations: The Federal rules restrict any use of the information to criminally investigate or prosecute any alcohol or drug abuse patient.[facility]In the event this information is protected by the Federal Confidentiality of Alcohol and Drug Abuse Patient Records regulations: The Federal rules restrict any use of the information to criminally investigate or prosecute any alcohol or drug abuse patient.[facility]In the event this information is protected by the Federal Confidentiality of Alcohol and Drug Abuse Patient Records regulations: The Federal rules restrict any use of the information to criminally investigate or prosecute any alcohol or drug abuse patient.[facility]In the event this information is protected by the Federal Confidentiality of Alcohol and Drug Abuse Patient Records regulations: The Federal rules restrict any use of the information to criminally investigate or prosecute any alcohol or drug abuse patient.[facility]In the event this information is protected by the Federal Confidentiality of Alcohol and Drug Abuse Patient Records regulations: The Federal rules restrict any use of the information to criminally investigate or prosecute any alcohol or drug abuse patient.[facility]In the event this information is protected by the Federal Confidentiality of Alcohol and Drug Abuse Patient Records regulations: The Federal rules restrict any use of the information to criminally investigate or prosecute any alcohol or drug abuse patient.[facility]In the event this information is protected by the Federal Confidentiality of Alcohol and Drug Abuse Patient Records regulations: The Federal rules restrict any use of the information to criminally investigate or prosecute any alcohol or drug abuse patient.[facility]In the event this information is protected by the Federal Confidentiality of Alcohol and Drug Abuse Patient Records regulations: The Federal rules restrict any use of the information to criminally investigate or prosecute any alcohol or drug abuse patient.[facility]In the event this information is protected by the Federal Confidentiality of Alcohol and Drug Abuse Patient Records regulations: The Federal rules restrict any use of the information to criminally investigate or prosecute any alcohol or drug abuse patient.[facility]In the event this information is protected by the Federal Confidentiality of Alcohol and Drug Abuse Patient Records regulations: The Federal rules restrict any use of the information to criminally investigate or prosecute any alcohol or drug abuse patient.[facility]In the event this information is protected by the Federal Confidentiality of Alcohol and Drug Abuse Patient Records regulations: The Federal rules restrict any use of the information to criminally investigate or prosecute any alcohol or drug abuse patient.[facility]In the event this information is protected by the Federal Confidentiality of Alcohol and Drug Abuse Patient Records regulations: The Federal rules restrict any use of the information to criminally investigate or prosecute any alcohol or drug abuse patient.[facility]In the event this information is protected by the Federal Confidentiality of Alcohol and Drug Abuse Patient Records regulations: The Federal rules restrict any use of the information to criminally investigate or prosecute any alcohol or drug abuse patient.[facility]In the event this information is protected by the Federal Confidentiality of Alcohol and Drug Abuse Patient Records regulations: The Federal rules restrict any use of the information to criminally investigate or prosecute any alcohol or drug abuse patient.[facility]In the event this information is protected by the Federal Confidentiality of Alcohol and Drug Abuse Patient Records regulations: The Federal rules restrict any use of the information to criminally investigate or prosecute any alcohol or drug abuse patient.[facility] HospitalIn the event this information is protected by the Federal Confidentiality of Alcohol and Drug Abuse Patient Records regulations: The Federal rules restrict any use of the information to criminally investigate or prosecute any alcohol or drug abuse patient.[facility] the event this information is protected by the Federal Confidentiality of Alcohol and Drug Abuse Patient Records regulations: The Federal rules restrict any use of the information to criminally investigate or prosecute any alcohol or drug abuse patient.[facility]In the event this information is protected by the Federal Confidentiality of Alcohol and Drug Abuse Patient Records regulations: The Federal rules restrict any use of the information to criminally investigate or prosecute any alcohol or drug abuse patient.[facility]In the event this information is protected by the Federal Confidentiality of Alcohol and Drug Abuse Patient Records regulations: The Federal rules restrict any use of the information to criminally investigate or prosecute any alcohol or drug abuse patient.[facility]In the event this information is protected by the Federal Confidentiality of Alcohol and Drug Abuse Patient Records regulations: The Federal rules restrict any use of the information to criminally investigate or prosecute any alcohol or drug abuse patient.[facility]In the event this information is protected by the Federal Confidentiality of Alcohol and Drug Abuse Patient Records regulations: The Federal rules restrict any use of the information to criminally investigate or prosecute any alcohol or drug abuse patient.[facility]In the event this information is protected by the Federal Confidentiality of Alcohol and Drug Abuse Patient Records regulations: The Federal rules restrict any use of the information to criminally investigate or prosecute any alcohol or drug abuse patient.[facility]In the event this information is protected by the Federal Confidentiality of Alcohol and Drug Abuse Patient Records regulations: The Federal rules restrict any use of the information to criminally investigate or prosecute any alcohol or drug abuse patient.[facility]In the event this information is protected by the Federal Confidentiality of Alcohol and Drug Abuse Patient Records regulations: The Federal rules restrict any use of the information to criminally investigate or prosecute any alcohol or drug abuse patient.[facility]In the event this information is protected by the Federal Confidentiality of Alcohol and Drug Abuse Patient Records regulations: The Federal rules restrict any use of the information to criminally investigate or prosecute any alcohol or drug abuse patient.[facility]In the event this information is protected by the Federal Confidentiality of Alcohol and Drug Abuse Patient Records regulations: The Federal rules restrict any use of the information to criminally investigate or prosecute any alcohol or drug abuse patient.[facility]In the event this information is protected by the Federal Confidentiality of Alcohol and Drug Abuse Patient Records regulations: The Federal rules restrict any use of the information to criminally investigate or prosecute any alcohol or drug abuse patient.[facility]In the event this information is protected by the Federal Confidentiality of Alcohol and Drug Abuse Patient Records regulations: The Federal rules restrict any use of the information to criminally investigate or prosecute any alcohol or drug abuse patient.[facility]In the event this information is protected by the Federal Confidentiality of Alcohol and Drug Abuse Patient Records regulations: The Federal rules restrict any use of the information to criminally investigate or prosecute any alcohol or drug abuse patient.[facility]In the event this information is protected by the Federal Confidentiality of Alcohol and Drug Abuse Patient Records regulations: The Federal rules restrict any use of the information to criminally investigate or prosecute any alcohol or drug abuse patient.[facility]In the event this information is protected by the Federal Confidentiality of Alcohol and Drug Abuse Patient Records regulations: The Federal rules restrict any use of the information to criminally investigate or prosecute any alcohol or drug abuse patient.[facility]In the event this information is protected by the Federal Confidentiality of Alcohol and Drug Abuse Patient Records regulations: The Federal rules restrict any use of the information to criminally investigate or prosecute any alcohol or drug abuse patient.[facility]In the event this information is protected by the Federal Confidentiality of Alcohol and Drug Abuse Patient Records regulations: The Federal rules restrict any use of the information to criminally investigate or prosecute any alcohol or drug abuse patient.[facility]In the event this information is protected by the Federal Confidentiality of Alcohol and Drug Abuse Patient Records regulations: The Federal rules restrict any use of the information to criminally investigate or prosecute any alcohol or drug abuse patient.[facility]In the event this information is protected by the Federal Confidentiality of Alcohol and Drug Abuse Patient Records regulations: The Federal rules restrict any use of the information to criminally investigate or prosecute any alcohol or drug abuse patient.[facility]In the event this information is protected by the Federal Confidentiality of Alcohol and Drug Abuse Patient Records regulations: The Federal rules restrict any use of the information to criminally investigate or prosecute any alcohol or drug abuse patient.[facility]In the event this information is protected by the Federal Confidentiality of Alcohol and Drug Abuse Patient Records regulations: The Federal rules restrict any use of the information to criminally investigate or prosecute any alcohol or drug abuse patient.[facility]In the event this information is protected by the Federal Confidentiality of Alcohol and Drug Abuse Patient Records regulations: The Federal rules restrict any use of the information to criminally investigate or prosecute any alcohol or drug abuse patient.[facility]In the event this information is protected by the Federal Confidentiality of Alcohol and Drug Abuse Patient Records regulations: The Federal rules restrict any use of the information to criminally investigate or prosecute any alcohol or drug abuse patient.[facility]In the event this information is protected by the Federal Confidentiality of Alcohol and Drug Abuse Patient Records regulations: The Federal rules restrict any use of the information to criminally investigate or prosecute any alcohol or drug abuse patient.[facility]In the event this information is protected by the Federal Confidentiality of Alcohol and Drug Abuse Patient Records regulations: The Federal rules restrict any use of the information to criminally investigate or prosecute any alcohol or drug abuse patient.[facility]In the event this information is protected by the Federal Confidentiality of Alcohol and Drug Abuse Patient Records regulations: The Federal rules restrict any use of the information to criminally investigate or prosecute any alcohol or drug abuse patient.[facility]In the event this information is protected by the Federal Confidentiality of Alcohol and Drug Abuse Patient Records regulations: The Federal rules restrict any use of the information to criminally investigate or prosecute any alcohol or drug abuse patient.[facility]In the event this information is protected by the Federal Confidentiality of Alcohol and Drug Abuse Patient Records regulations: The Federal rules restrict any use of the information to criminally investigate or prosecute any alcohol or drug abuse patient.[facility]In the event this information is protected by the Federal Confidentiality of Alcohol and Drug Abuse Patient Records regulations: The Federal rules restrict any use of the information to criminally investigate or prosecute any alcohol or drug abuse patient.[facility]In the event this information is protected by the Federal Confidentiality of Alcohol and Drug Abuse Patient Records regulations: The Federal rules restrict any use of the information to criminally investigate or prosecute any alcohol or drug abuse patient.[facility]In the event this information is protected by the Federal Confidentiality of Alcohol and Drug Abuse Patient Records regulations: The Federal rules restrict any use of the information to criminally investigate or prosecute any alcohol or drug abuse patient.[facility]In the event this information is protected by the Federal Confidentiality of Alcohol and Drug Abuse Patient Records regulations: The Federal rules restrict any use of the information to criminally investigate or prosecute any alcohol or drug abuse patient.[facility]In the event this information is protected by the Federal Confidentiality of Alcohol and Drug Abuse Patient Records regulations: The Federal rules restrict any use of the information to criminally investigate or prosecute any alcohol or drug abuse patient.[facility]In the event this information is protected by the Federal Confidentiality of Alcohol and Drug Abuse Patient Records regulations: The Federal rules restrict any use of the information to criminally investigate or prosecute any alcohol or drug abuse patient.[facility]In the event this information is protected by the Federal Confidentiality of Alcohol and Drug Abuse Patient Records regulations: The Federal rules restrict any use of the information to criminally investigate or prosecute any alcohol or drug abuse patient.[facility]In the event this information is protected by the Federal Confidentiality of Alcohol and Drug Abuse Patient Records regulations: The Federal rules restrict any use of the information to criminally investigate or prosecute any alcohol or drug abuse patient.[facility]In the event this information is protected by the Federal Confidentiality of Alcohol and Drug Abuse Patient Records regulations: The Federal rules restrict any use of the information to criminally investigate or prosecute any alcohol or drug abuse patient.[facility]In the event this information is protected by the Federal Confidentiality of Alcohol and Drug Abuse Patient Records regulations: The Federal rules restrict any use of the information to criminally investigate or prosecute any alcohol or drug abuse patient.[facility]In the event this information is protected by the Federal Confidentiality of Alcohol and Drug Abuse Patient Records regulations: The Federal rules restrict any use of the information to criminally investigate or prosecute any alcohol or drug abuse patient.[facility]In the event this information is protected by the Federal Confidentiality of Alcohol and Drug Abuse Patient Records regulations: The Federal rules restrict any use of the information to criminally investigate or prosecute any alcohol or drug abuse patient.[facility]In the event this information is protected by the Federal Confidentiality of Alcohol and Drug Abuse Patient Records regulations: The Federal rules restrict any use of the information to criminally investigate or prosecute any alcohol or drug abuse patient.[facility]In the event this information is protected by the Federal Confidentiality of Alcohol and Drug Abuse Patient Records regulations: The Federal rules restrict any use of the information to criminally investigate or prosecute any alcohol or drug abuse patient.[facility]In the event this information is protected by the Federal Confidentiality of Alcohol and Drug Abuse Patient Records regulations: The Federal rules restrict any use of the information to criminally investigate or prosecute any alcohol or drug abuse patient.[facility]In the event this information is protected by the Federal Confidentiality of Alcohol and Drug Abuse Patient Records regulations: The Federal rules restrict any use of the information to criminally investigate or prosecute any alcohol or drug abuse patient.[facility]In the event this information is protected by the Federal Confidentiality of Alcohol and Drug Abuse Patient Records regulations: The Federal rules restrict any use of the information to criminally investigate or prosecute any alcohol or drug abuse patient.[facility]In the event this information is protected by the Federal Confidentiality of Alcohol and Drug Abuse Patient Records regulations: The Federal rules restrict any use of the information to criminally investigate or prosecute any alcohol or drug abuse patient.[facility]In the event this information is protected by the Federal Confidentiality of Alcohol and Drug Abuse Patient Records regulations: The Federal rules restrict any use of the information to criminally investigate or prosecute any alcohol or drug abuse patient.[facility]In the event this information is protected by the Federal Confidentiality of Alcohol and Drug Abuse Patient Records regulations: The Federal rules restrict any use of the information to criminally investigate or prosecute any alcohol or drug abuse patient.[facility]In the event this information is protected by the Federal Confidentiality of Alcohol and Drug Abuse Patient Records regulations: The Federal rules restrict any use of the information to criminally investigate or prosecute any alcohol or drug abuse patient.[facility]In the event this information is protected by the Federal Confidentiality of Alcohol and Drug Abuse Patient Records regulations: The Federal rules restrict any use of the information to criminally investigate or prosecute any alcohol or drug abuse patient.[facility] the event this information is protected by the Federal Confidentiality of Alcohol and Drug Abuse Patient Records regulations: The Federal rules restrict any use of the information to criminally investigate or prosecute any alcohol or drug abuse patient.[facility]In the event this information is protected by the Federal Confidentiality of Alcohol and Drug Abuse Patient Records regulations: The Federal rules restrict any use of the information to criminally investigate or prosecute any alcohol or drug abuse patient.[facility]In the event this information is protected by the Federal Confidentiality of Alcohol and Drug Abuse Patient Records regulations: The Federal rules restrict any use of the information to criminally investigate or prosecute any alcohol or drug abuse patient.[facility]In the event this information is protected by the Federal Confidentiality of Alcohol and Drug Abuse Patient Records regulations: The Federal rules restrict any use of the information to criminally investigate or prosecute any alcohol or drug abuse patient.[facility]In the event this information is protected by the Federal Confidentiality of Alcohol and Drug Abuse Patient Records regulations: The Federal rules restrict any use of the information to criminally investigate or prosecute any alcohol or drug abuse patient.[facility]In the event this information is protected by the Federal Confidentiality of Alcohol and Drug Abuse Patient Records regulations: The Federal rules restrict any use of the information to criminally investigate or prosecute any alcohol or drug abuse patient.[facility]In the event this information is protected by the Federal Confidentiality of Alcohol and Drug Abuse Patient Records regulations: The Federal rules restrict any use of the information to criminally investigate or prosecute any alcohol or drug abuse patient.[facility]In the event this information is protected by the Federal Confidentiality of Alcohol and Drug Abuse Patient Records regulations: The Federal rules restrict any use of the information to criminally investigate or prosecute any alcohol or drug abuse patient.[facility]In the event this information is protected by the Federal Confidentiality of Alcohol and Drug Abuse Patient Records regulations: The Federal rules restrict any use of the information to criminally investigate or prosecute any alcohol or drug abuse patient.[facility]In the event this information is protected by the Federal Confidentiality of Alcohol and Drug Abuse Patient Records regulations: The Federal rules restrict any use of the information to criminally investigate or prosecute any alcohol or drug abuse patient.[facility]In the event this information is protected by the Federal Confidentiality of Alcohol and Drug Abuse Patient Records regulations: The Federal rules restrict any use of the information to criminally investigate or prosecute any alcohol or drug abuse patient.[facility]In the event this information is protected by the Federal Confidentiality of Alcohol and Drug Abuse Patient Records regulations: The Federal rules restrict any use of the information to criminally investigate or prosecute any alcohol or drug abuse patient.[facility]In the event this information is protected by the Federal Confidentiality of Alcohol and Drug Abuse Patient Records regulations: The Federal rules restrict any use of the information to criminally investigate or prosecute any alcohol or drug abuse patient.[facility] HospitalIn the event this information is protected by the Federal Confidentiality of Alcohol and Drug Abuse Patient Records regulations: The Federal rules restrict any use of the information to criminally investigate or prosecute any alcohol or drug abuse patient.[facility]In the event this information is protected by the Federal Confidentiality of Alcohol and Drug Abuse Patient Records regulations: The Federal rules restrict any use of the information to criminally investigate or prosecute any alcohol or drug abuse patient.[facility] HospitalIn the event this information is protected by the Federal Confidentiality of Alcohol and Drug Abuse Patient Records regulations: The Federal rules restrict any use of the information to criminally investigate or prosecute any alcohol or drug abuse patient.[facility]In the event this information is protected by the Federal Confidentiality of Alcohol and Drug Abuse Patient Records regulations: The Federal rules restrict any use of the information to criminally investigate or prosecute any alcohol or drug abuse patient.[facility] HospitalIn the event this information is protected by the Federal Confidentiality of Alcohol and Drug Abuse Patient Records regulations: The Federal rules restrict any use of the information to criminally investigate or prosecute any alcohol or drug abuse patient.[facility] HospitalIn the event this information is protected by the Federal Confidentiality of Alcohol and Drug Abuse Patient Records regulations: The Federal rules restrict any use of the information to criminally investigate or prosecute any alcohol or drug abuse patient.[facility] HospitalIn the event this information is protected by the Federal Confidentiality of Alcohol and Drug Abuse Patient Records regulations: The Federal rules restrict any use of the information to criminally investigate or prosecute any alcohol or drug abuse patient.[facility] HospitalIn the event this information is protected by the Federal Confidentiality of Alcohol and Drug Abuse Patient Records regulations: The Federal rules restrict any use of the information to criminally investigate or prosecute any alcohol or drug abuse patient.[facility]In the event this information is protected by the Federal Confidentiality of Alcohol and Drug Abuse Patient Records regulations: The Federal rules restrict any use of the information to criminally investigate or prosecute any alcohol or drug abuse patient.[facility]In the event this information is protected by the Federal Confidentiality of Alcohol and Drug Abuse Patient Records regulations: The Federal rules restrict any use of the information to criminally investigate or prosecute any alcohol or drug abuse patient.[facility]In the event this information is protected by the Federal Confidentiality of Alcohol and Drug Abuse Patient Records regulations: The Federal rules restrict any use of the information to criminally investigate or prosecute any alcohol or drug abuse patient.[facility] HospitalIn the event this information is protected by the Federal Confidentiality of Alcohol and Drug Abuse Patient Records regulations: The Federal rules restrict any use of the information to criminally investigate or prosecute any alcohol or drug abuse patient.[facility] HospitalIn the event this information is protected by the Federal Confidentiality of Alcohol and Drug Abuse Patient Records regulations: The Federal rules restrict any use of the information to criminally investigate or prosecute any alcohol or drug abuse patient.[facility] HospitalIn the event this information is protected by the Federal Confidentiality of Alcohol and Drug Abuse Patient Records regulations: The Federal rules restrict any use of the information to criminally investigate or prosecute any alcohol or drug abuse patient.[facility] HospitalIn the event this information is protected by the Federal Confidentiality of Alcohol and Drug Abuse Patient Records regulations: The Federal rules restrict any use of the information to criminally investigate or prosecute any alcohol or drug abuse patient.[facility] HospitalIn the event this information is protected by the Federal Confidentiality of Alcohol and Drug Abuse Patient Records regulations: The Federal rules restrict any use of the information to criminally investigate or prosecute any alcohol or drug abuse patient.[facility]In the event this information is protected by the Federal Confidentiality of Alcohol and Drug Abuse Patient Records regulations: The Federal rules restrict any use of the information to criminally investigate or prosecute any alcohol or drug abuse patient.[facility]In the event this information is protected by the Federal Confidentiality of Alcohol and Drug Abuse Patient Records regulations: The Federal rules restrict any use of the information to criminally investigate or prosecute any alcohol or drug abuse patient.[facility]In the event this information is protected by the Federal Confidentiality of Alcohol and Drug Abuse Patient Records regulations: The Federal rules restrict any use of the information to criminally investigate or prosecute any alcohol or drug abuse patient.[facility] HospitalIn the event this information is protected by the Federal Confidentiality of Alcohol and Drug Abuse Patient Records regulations: The Federal rules restrict any use of the information to criminally investigate or prosecute any alcohol or drug abuse patient.[facility] HospitalIn the event this information is protected by the Federal Confidentiality of Alcohol and Drug Abuse Patient Records regulations: The Federal rules restrict any use of the information to criminally investigate or prosecute any alcohol or drug abuse patient.[facility] HospitalIn the event this information is protected by the Federal Confidentiality of Alcohol and Drug Abuse Patient Records regulations: The Federal rules restrict any use of the information to criminally investigate or prosecute any alcohol or drug abuse patient.[facility] HospitalIn the event this information is protected by the Federal Confidentiality of Alcohol and Drug Abuse Patient Records regulations: The Federal rules restrict any use of the information to criminally investigate or prosecute any alcohol or drug abuse patient.[facility] HospitalIn the event this information is protected by the Federal Confidentiality of Alcohol and Drug Abuse Patient Records regulations: The Federal rules restrict any use of the information to criminally investigate or prosecute any alcohol or drug abuse patient.[facility] HospitalIn the event this information is protected by the Federal Confidentiality of Alcohol and Drug Abuse Patient Records regulations: The Federal rules restrict any use of the information to criminally investigate or prosecute any alcohol or drug abuse patient.[facility] HospitalIn the event this information is protected by the Federal Confidentiality of Alcohol and Drug Abuse Patient Records regulations: The Federal rules restrict any use of the information to criminally investigate or prosecute any alcohol or drug abuse patient.[facility] HospitalIn the event this information is protected by the Federal Confidentiality of Alcohol and Drug Abuse Patient Records regulations: The Federal rules restrict any use of the information to criminally investigate or prosecute any alcohol or drug abuse patient.[facility] HospitalIn the event this information is protected by the Federal Confidentiality of Alcohol and Drug Abuse Patient Records regulations: The Federal rules restrict any use of the information to criminally investigate or prosecute any alcohol or drug abuse patient.[facility] HospitalIn the event this information is protected by the Federal Confidentiality of Alcohol and Drug Abuse Patient Records regulations: The Federal rules restrict any use of the information to criminally investigate or prosecute any alcohol or drug abuse patient.[facility] HospitalIn the event this information is protected by the Federal Confidentiality of Alcohol and Drug Abuse Patient Records regulations: The Federal rules restrict any use of the information to criminally investigate or prosecute any alcohol or drug abuse patient.[facility] HospitalIn the event this information is protected by the Federal Confidentiality of Alcohol and Drug Abuse Patient Records regulations: The Federal rules restrict any use of the information to criminally investigate or prosecute any alcohol or drug abuse patient.[facility]In the event this information is protected by the Federal Confidentiality of Alcohol and Drug Abuse Patient Records regulations: The Federal rules restrict any use of the information to criminally investigate or prosecute any alcohol or drug abuse patient.[facility] HospitalIn the event this information is protected by the Federal Confidentiality of Alcohol and Drug Abuse Patient Records regulations: The Federal rules restrict any use of the information to criminally investigate or prosecute any alcohol or drug abuse patient.[facility]In the event this information is protected by the Federal Confidentiality of Alcohol and Drug Abuse Patient Records regulations: The Federal rules restrict any use of the information to criminally investigate or prosecute any alcohol or drug abuse patient.[facility] HospitalIn the event this information is protected by the Federal Confidentiality of Alcohol and Drug Abuse Patient Records regulations: The Federal rules restrict any use of the information to criminally investigate or prosecute any alcohol or drug abuse patient.[facility] HospitalIn the event this information is protected by the Federal Confidentiality of Alcohol and Drug Abuse Patient Records regulations: The Federal rules restrict any use of the information to criminally investigate or prosecute any alcohol or drug abuse patient.[facility] HospitalIn the event this information is protected by the Federal Confidentiality of Alcohol and Drug Abuse Patient Records regulations: The Federal rules restrict any use of the information to criminally investigate or prosecute any alcohol or drug abuse patient.[facility] the event this information is protected by the Federal Confidentiality of Alcohol and Drug Abuse Patient Records regulations: The Federal rules restrict any use of the information to criminally investigate or prosecute any alcohol or drug abuse patient.[facility]In the event this information is protected by the Federal Confidentiality of Alcohol and Drug Abuse Patient Records regulations: The Federal rules restrict any use of the information to criminally investigate or prosecute any alcohol or drug abuse patient.[facility] HospitalIn the event this information is protected by the Federal Confidentiality of Alcohol and Drug Abuse Patient Records regulations: The Federal rules restrict any use of the information to criminally investigate or prosecute any alcohol or drug abuse patient.[facility]In the event this information is protected by the Federal Confidentiality of Alcohol and Drug Abuse Patient Records regulations: The Federal rules restrict any use of the information to criminally investigate or prosecute any alcohol or drug abuse patient.[facility]In the event this information is protected by the Federal Confidentiality of Alcohol and Drug Abuse Patient Records regulations: The Federal rules restrict any use of the information to criminally investigate or prosecute any alcohol or drug abuse patient.[facility] HospitalIn the event this information is protected by the Federal Confidentiality of Alcohol and Drug Abuse Patient Records regulations: The Federal rules restrict any use of the information to criminally investigate or prosecute any alcohol or drug abuse patient.[facility]In the event this information is protected by the Federal Confidentiality of Alcohol and Drug Abuse Patient Records regulations: The Federal rules restrict any use of the information to criminally investigate or prosecute any alcohol or drug abuse patient.[facility]In the event this information is protected by the Federal Confidentiality of Alcohol and Drug Abuse Patient Records regulations: The Federal rules restrict any use of the information to criminally investigate or prosecute any alcohol or drug abuse patient.[facility]In the event this information is protected by the Federal Confidentiality of Alcohol and Drug Abuse Patient Records regulations: The Federal rules restrict any use of the information to criminally investigate or prosecute any alcohol or drug abuse patient.[facility]In the event this information is protected by the Federal Confidentiality of Alcohol and Drug Abuse Patient Records regulations: The Federal rules restrict any use of the information to criminally investigate or prosecute any alcohol or drug abuse patient.[facility]In the event this information is protected by the Federal Confidentiality of Alcohol and Drug Abuse Patient Records regulations: The Federal rules restrict any use of the information to criminally investigate or prosecute any alcohol or drug abuse patient.[facility] HospitalIn the event this information is protected by the Federal Confidentiality of Alcohol and Drug Abuse Patient Records regulations: The Federal rules restrict any use of the information to criminally investigate or prosecute any alcohol or drug abuse patient.[facility]In the event this information is protected by the Federal Confidentiality of Alcohol and Drug Abuse Patient Records regulations: The Federal rules restrict any use of the information to criminally investigate or prosecute any alcohol or drug abuse patient.[facility]In the event this information is protected by the Federal Confidentiality of Alcohol and Drug Abuse Patient Records regulations: The Federal rules restrict any use of the information to criminally investigate or prosecute any alcohol or drug abuse patient.[facility]In the event this information is protected by the Federal Confidentiality of Alcohol and Drug Abuse Patient Records regulations: The Federal rules restrict any use of the information to criminally investigate or prosecute any alcohol or drug abuse patient.[facility]In the event this information is protected by the Federal Confidentiality of Alcohol and Drug Abuse Patient Records regulations: The Federal rules restrict any use of the information to criminally investigate or prosecute any alcohol or drug abuse patient.[facility]In the event this information is protected by the Federal Confidentiality of Alcohol and Drug Abuse Patient Records regulations: The Federal rules restrict any use of the information to criminally investigate or prosecute any alcohol or drug abuse patient.[facility]In the event this information is protected by the Federal Confidentiality of Alcohol and Drug Abuse Patient Records regulations: The Federal rules restrict any use of the information to criminally investigate or prosecute any alcohol or drug abuse patient.[facility]In the event this information is protected by the Federal Confidentiality of Alcohol and Drug Abuse Patient Records regulations: The Federal rules restrict any use of the information to criminally investigate or prosecute any alcohol or drug abuse patient.[facility]In the event this information is protected by the Federal Confidentiality of Alcohol and Drug Abuse Patient Records regulations: The Federal rules restrict any use of the information to criminally investigate or prosecute any alcohol or drug abuse patient.[facility]In the event this information is protected by the Federal Confidentiality of Alcohol and Drug Abuse Patient Records regulations: The Federal rules restrict any use of the information to criminally investigate or prosecute any alcohol or drug abuse patient.[facility]In the event this information is protected by the Federal Confidentiality of Alcohol and Drug Abuse Patient Records regulations: The Federal rules restrict any use of the information to criminally investigate or prosecute any alcohol or drug abuse patient.[facility]In the event this information is protected by the Federal Confidentiality of Alcohol and Drug Abuse Patient Records regulations: The Federal rules restrict any use of the information to criminally investigate or prosecute any alcohol or drug abuse patient.[facility]In the event this information is protected by the Federal Confidentiality of Alcohol and Drug Abuse Patient Records regulations: The Federal rules restrict any use of the information to criminally investigate or prosecute any alcohol or drug abuse patient.[facility]In the event this information is protected by the Federal Confidentiality of Alcohol and Drug Abuse Patient Records regulations: The Federal rules restrict any use of the information to criminally investigate or prosecute any alcohol or drug abuse patient.[facility]In the event this information is protected by the Federal Confidentiality of Alcohol and Drug Abuse Patient Records regulations: The Federal rules restrict any use of the information to criminally investigate or prosecute any alcohol or drug abuse patient.[facility]In the event this information is protected by the Federal Confidentiality of Alcohol and Drug Abuse Patient Records regulations: The Federal rules restrict any use of the information to criminally investigate or prosecute any alcohol or drug abuse patient.[facility]In the event this information is protected by the Federal Confidentiality of Alcohol and Drug Abuse Patient Records regulations: The Federal rules restrict any use of the information to criminally investigate or prosecute any alcohol or drug abuse patient.[facility]In the event this information is protected by the Federal Confidentiality of Alcohol and Drug Abuse Patient Records regulations: The Federal rules restrict any use of the information to criminally investigate or prosecute any alcohol or drug abuse patient.[facility]In the event this information is protected by the Federal Confidentiality of Alcohol and Drug Abuse Patient Records regulations: The Federal rules restrict any use of the information to criminally investigate or prosecute any alcohol or drug abuse patient.[facility]In the event this information is protected by the Federal Confidentiality of Alcohol and Drug Abuse Patient Records regulations: The Federal rules restrict any use of the information to criminally investigate or prosecute any alcohol or drug abuse patient.[facility] Ordered Prescriptions (unrec ognized section and [...] BE BASED ON THE PRIMARY CLINICAL RECORDS. [facility]. provides no warranty or guarantee of the accuracy or completeness of information in this document.
--- NOTE | 2023-11-07 11:00 | CT_ITS ---
[address] [address] Patient Name: JUAN KONG MRN: [id number] date: 1990 Sex: F Assigned Patient Location: ED.MAIN Current Patient Location: Accession/Order Number: [id number] Exam Date: 11/07/2023 11:52 Report Date: 11/07/2023 13:01 At the request of: LESLIE TERRAZAS Procedure: CT abdomen pelvis w con EXAM: CT abdomen pelvis w con HISTORY: Pain at feeding tube site COMPARISON: 09/23/2023 TECHNIQUE: Axial CT imaging was performed through the abdomen and pelvis with intravenous contrast. Multiplanar reformats were performed. Dose reduction techniques were achieved by using automated exposure control and/or adjustment of mA and/or kV according to patient size and/or use of iterative reconstruction technique. FINDINGS: Lung bases: Lung bases are clear. No pleural effusion. GI upper: Isabel-en-Y gastric bypass is noted with intact anastomosis. Jejunostomy tube is unchanged in the position. No fat stranding or fluid is noted in the location of the tube. Liver: Normal size and contour. Unchanged cystic structures throughout the liver. Gallbladder: Cholecystectomy. Biliary system: No intra or extrahepatic biliary ductal dilatation. Spleen: Normal size. Pancreas: Unremarkable. Adrenal glands: Normal adrenal glands. Kidneys/ureters: Normal contours. No hydronephrosis. No nephrolithiasis or ureterolithiasis. Vessels: No aneurysm. Lymph Nodes: No lymphadenopathy. Small bowel: No wall thickening or dilatation. Colon: No wall thickening or dilatation. Moderate volume stool burden. Appendix: Appendectomy. Peritoneal cavity: No free fluid or pneumoperitoneum. Lower : Hysterectomy. Bones: No acute bony abnormality. Soft tissues: No acute finding. Additional findings: None. CT/CT abdomen pelvis w con IMPRESSION: Jejunostomy tube is unchanged in the position. No fat stranding or fluid is noted in the location of the tube. Constipation. Electronically authenticated by: SCOT GREER Date: 11/07/2023 13:01
--- NOTE | 2023-11-07 11:01 | ED_ITS ---
HPI - Abdominal Pain General Chief Complaint: Abdominal Pain Stated Complaint: SWELLING IN ABDOMIN, VOMITING, CLINIC REFERRAL/HOY Time Seen by Provider: 11/07/23 10:51 Source: patient Mode of arrival: walk-in History of Present Illness HPI narrative: 33-year-old female presents for abdominal pain. She is complaining of pain at the site where her feeding tube enters the skin and states she has had some purulent drainage coming from it. About a month ago she had surgery for small bowel obstruction in [place]. She has not been vomiting or running a fever. The feeding tube is functioning. Related Data Home Medications ?Medication ?Instructions ?Recorded ?Confirmed hydroxyzine HCl 25 mg tablet 25 mg PO BID PRN anxiety 09/17/22 09/23/23 liothyronine 5 mcg tablet 5 mcg PO QDAY 09/17/22 09/23/23 topiramate 100 mg tablet 100 mg PO BID 09/17/22 09/23/23 buspirone 10 mg tablet 10 mg PO TID 06/14/23 09/23/23 linaclotide 290 mcg capsule 290 mcg PO DAILY 06/14/23 09/23/23 (Linzess) methocarbamol 750 mg tablet 750 mg PO TID 06/14/23 09/23/23 metoclopramide HCl 10 mg tablet 10 mg PO AC 06/14/23 09/23/23 albuterol sulfate 90 mcg/actuation 2 puff inhalation Q6H PRN 06/15/23 09/23/23 aerosol inhaler shortness of breath or wheezing escitalopram oxalate 20 mg tablet 20 mg PO DAILY 06/15/23 09/23/23 levothyroxine 75 mcg tablet 75 mcg PO .ACB 06/15/23 09/23/23 mirtazapine 30 mg tablet 30 mg PO .HS 06/15/23 09/23/23 pantoprazole 40 mg tablet,delayed 40 mg PO DAILY 06/15/23 09/23/23 release acetaminophen 325 mg tablet (Pain 650 mg PO Q4H PRN pain 06/24/23 08/15/23 Relief (acetaminophen)) prednisone 10 mg tablet 15 mg PO DAILY 09/23/23 09/23/23 Previous Rx's ?Medication ?Instructions ?Recorded Nutrin 45 ml feeding tube Q1H #3,000 mL 06/16/23 prochlorperazine maleate 10 mg 10 mg PO Q6H PRN nausea and 06/16/23 tablet (Compazine) vomiting #60 tabs tramadol 50 mg tablet 50 mg PO Q6H PRN pain #28 tabs 06/16/23 ondansetron 4 mg disintegrating 4 mg PO Q6H PRN nausea and 07/08/23 tablet vomiting #20 tabs mupirocin calcium 2 % topical cream 1 applic topical BID #15 grams 11/07/23 Allergies Allergy/AdvReac Type Severity Reaction Status Date / Time adhesive Allergy Rash Verified 08/15/23 13:11 codeine Allergy Vomiting Verified 08/15/23 13:11 NSAIDS (Non-Steroidal Allergy intolerance Verified 08/15/23 13:11 Anti-Inflamma Review of Systems ROS Narrative A ten point review of systems is negative except as noted above. [facility] Medical History (Updated 11/07/23 @ 13:08 by Reji Damon MD) Nausea and vomiting ?R11.2 - Nausea with vomiting, unspecified (ICD-10) Flank pain ?R10.9 - Unspecified abdominal pain (ICD-10) Abdominal pain ?R10.9 - Unspecified abdominal pain (ICD-10) Acute abdomen ?R10.0 - Acute abdomen (ICD-10) Intractable nausea and vomiting ?R11.2 - Nausea with vomiting, unspecified (ICD-10) Intractable abdominal pain ?R10.9 - Unspecified abdominal pain (ICD-10) Depression ?F32.A - Depression, unspecified (ICD-10) Asthma ?J45.909 - Unspecified asthma, uncomplicated (ICD-10) Dyspareunia Pelvic pain ?R10.2 - Pelvic and perineal pain (ICD-10) Ovarian cyst ?N83.209 - Unspecified ovarian cyst, unspecified side (ICD-10) PONV (postoperative nausea and vomiting) ?R11.2 - Nausea with vomiting, unspecified (ICD-10) ?Z98.890 - Other specified postprocedural states (ICD-10) PCOS (polycystic ovarian syndrome) ?E28.2 - Polycystic ovarian syndrome (ICD-10) Hypothyroidism (acquired) ?E03.9 - Hypothyroidism, unspecified (ICD-10) Anxiety ?F41.9 - Anxiety disorder, unspecified (ICD-10) GERD (gastroesophageal reflux disease) ?K21.9 - Gastro-esophageal reflux disease without esophagitis (ICD-10) Sleep apnea ?G47.30 - Sleep apnea, unspecified (ICD-10) Anemia ?D64.9 - Anemia, unspecified (ICD-10) Fibromyalgia ?M79.7 - Fibromyalgia (ICD-10) Syncope (07/07/13) ?R55 - Syncope and collapse (ICD-10) Shingles ?B02.9 - Zoster without complications (ICD-10) Headache ?R51.9 - Headache, unspecified (ICD-10) Migraine ?G43.909 - Migraine, unspecified, not intractable, without status migrainosus (ICD-10) Mechanical ileus (01/31/20) ?K56.609 - Unspecified intestinal obstruction, unspecified as to partial versus complete obstruction (ICD-10) COVID-19 (~02/2020) ?U07.1 - COVID-19 (ICD-10) Kidney stones ?N20.0 - Calculus of kidney (ICD-10) Surgical History (Updated 06/14/23 @ 16:55 by Marsha Du) S/P percutaneous endoscopic gastrostomy (PEG) tube placement ?Z93.1 - Gastrostomy status (ICD-10) 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 - Celiac artery compression syndrome (ICD-10) H/O shoulder surgery (2022) ?Z98.890 - Other specified postprocedural states (ICD-10) History of hip surgery ?Z98.890 - Other specified postprocedural states (ICD-10) S/P right knee arthroscopy ?Z98.890 - Other specified postprocedural states (ICD-10) S/P left knee arthroscopy ?Z98.890 - Other specified postprocedural states (ICD-10) Hx of tonsillectomy ?Z90.89 - Acquired absence of other organs (ICD-10) History of thoracic surgery (~2021) ?Z98.890 - Other specified postprocedural states (ICD-10) History of esophagogastroduodenoscopy (EGD) (10/04/13) ?Z98.890 - Other specified postprocedural states (ICD-10) History of cholecystectomy (10/06/13) ?Z90.49 - Acquired absence of other specified parts of digestive tract (ICD- 10) Delivery by section (~2016) Delivery by section (01/17/18) H/O colonoscopy (~2018) ?Z98.890 - Other specified postprocedural states (ICD-10) S/P right knee arthroscopy (07/21/18) ?Z98.890 - Other specified postprocedural states (ICD-10) Delivery by section (06/19/19) History of appendectomy (09/25/19) ?Z90.49 - Acquired absence of other specified parts of digestive tract (ICD- 10) H/O laparoscopy (11/10/19) ?Z98.890 - Other specified postprocedural states (ICD-10) History of liver biopsy (~04/2020) ?Z98.890 - Other specified postprocedural states (ICD-10) H/O laparoscopy (07/18/20) ?Z98.890 - Other specified postprocedural states (ICD-10) H/O arthroscopy of right knee (08/07/20) ?Z98.890 - Other specified postprocedural states (ICD-10) S/P laparoscopic sleeve gastrectomy (09/03/20) ?Z98.84 - Bariatric surgery status (ICD-10) H/O: hysterectomy (11/12/20) ?Z90.710 - Acquired absence of both cervix and uterus (ICD-10) History of hernia repair (03/20/21) ?Z98.890 - Other specified postprocedural states (ICD-10) ?Z87.19 - Personal history of other diseases of the digestive system (ICD-10) Family History (Updated 06/14/23 @ 16:56 by Marsha Du) Other Family history of cancer Family history of diabetes mellitus Family history of hypertension Family history of myocardial infarction PONV (postoperative nausea and vomiting) Social History (Updated 06/14/23 @ 16:57 by Marsha Du) Within the past year, how often did you have a drink containing alcohol: never Score interpretation: A score less than 3 is consistent with normal alcohol consumption. Smoking status: Never smoker Non-prescribed substance use: denies use Highest level of school completed/degree received: Master's degree Are you now , , , , never or living with a partner: In a typical week, how many times do you talk on the telephone with family, friends, or neighbors: 3 or more times per week How often do you get together with friends or relatives: twice per week How often do you attend protestant or jainism services: 4 or more times per year Do you belong to any clubs or organizations such as protestant groups unions, fraternal or athletic groups, or school groups: no Total score: 3 Score interpretation: A score of greater than or equal to 2 indicates the lowest level of social isolation. Little interest or pleasure in doing things: not at all Feeling down, depressed, or hopeless: not at all Feel stressed/tense/nervous/anxious/difficulty sleeping: to some extent Do you think of yourself as: straight/heterosexual Gender Identity: female Exam Narrative Exam Narrative: Nurses note and vital signs reviewed and patient is not hypoxic. General: The patient appears in no apparent distress. Skin: Warm, dry, no pallor noted. There is no rash noted. Head: Normocephalic, atraumatic Eye: Normal conjunctiva, no drainage Ears, Nose, Mouth, and Throat: oral mucosa is moist. Nares patent. Cardiovascular: Regular Rate and Rhythm Respiratory: Patient is in no distress, no accessory muscle use, lungs are clear to auscultation, no wheezing, rales or rhonchi Back: non-tender GI: Feeding tube is in place. There is minimal purulent drainage around it as well as some minimal erythema. The rest of her abdomen is nontender. Musculoskeletal: The patient has no evidence of calf tenderness, no pitting edema, symmetrical pulses noted bilaterally Neurological: A&O, normal speech Psychiatric: Cooperative Constitutional Vital Signs, click to edit/add: Last Vital Signs Temp 98.3 F 11/07/23 10:48 Pulse 107 H 11/07/23 10:48 Resp 18 11/07/23 10:48 BP 122/76 11/07/23 12:52 Pulse Ox 100 11/07/23 10:48 Course Vital Signs Vital signs: Vital Signs Temperature 98.3 F 11/07/23 10:48 Pulse Rate 107 H 11/07/23 10:48 Respiratory Rate 18 11/07/23 10:48 Blood Pressure 149/100 H 11/07/23 10:48 Pulse Oximetry 100 11/07/23 10:48 Temperature 98.3 F 11/07/23 10:48 Pulse Rate 107 H 11/07/23 10:48 Respiratory Rate 18 11/07/23 10:48 Blood Pressure 122/76 11/07/23 12:52 Pulse Oximetry 100 11/07/23 10:48 MDM - Abdominal Pain MDM Narrative Medical decision making narrative: CT scanning showed constipation, otherwise normal. Blood work is nonspecific. She will be prescribed Bactroban for the drainage around her feeding tube site and was recommended MiraLAX. Treatment diagnosis and follow-up were discussed with the patient. Differential Diagnosis Differential diagnosis: Likely abdominal pain, constipation, diverticulitis, gastroenteritis, pancreatitis and small bowel obstruction Lab Data Attestation: I reviewed the patient's lab results. Labs: Lab Results 11/07/23 Range/Units 11:08 WBC 3.9 L (4.0-11.0) 10^3/uL RBC 3.80 L (4.20-5.40) 10^6/uL Hgb 9.9 L (12.0-16.0) g/dL Hct 31.5 L (36.0-48.0) % MCV 82.9 (81.0-99.0) fL MCH 26.1 L (26.7-34.0) pg MCHC 31.4 (29.9-35.2) g/dL RDW 14.3 (11.0-15.0) % Plt Count 240 (150-450) 10^3/uL MPV 10.8 (9.5-13.5) fL Neut % (Auto) 43.4 (43.0-75.0) % Lymph % (Auto) 39.4 (20.5-60.0) % [place] % (Auto) 10.7 (1.7-12.0) % Eos % (Auto) 4.9 (0.9-7.0) % Baso % (Auto) 1.3 (0.2-2.0) % Neut # (Auto) 1.7 (1.4-6.5) 10^3/uL Lymph # (Auto) 1.5 (1.2-3.8) 10^3/uL [place] # (Auto) 0.4 (0.3-0.8) 10^3/uL Eos # (Auto) 0.2 (0.0-0.7) 10^3/uL Baso # (Auto) 0.1 (0.0-0.1) 10^3/uL Abs Immat Gran (auto) 0.01 (0.00-0.03) 10^3/uL Imm/Tot Granulo (auto) 0.3 (0.0-0.5) % Sodium 134 L (136-145) mmol/L Potassium 3.5 (3.5-5.1) mmol/L Chloride 101 (98-107) mmol/L Carbon Dioxide 28.9 (21.0-32.0) mmol/L Anion Gap 7.6 BUN 9.0 (7.0-18.0) mg/dL Creatinine 0.81 (0.55-1.02) mg/dL Est GFR ( Amer) >60 (>=60) Est GFR (Non-Af Amer) >60 (>=60) BUN/Creatinine Ratio 11.1 Glucose 97 (74-106) mg/dL Calcium 8.2 L (8.5-10.1) mg/dL Total Bilirubin 0.4 (0.2-1.0) mg/dL Direct Bilirubin 0.1 (0.0-0.2) mg/dL AST 27 (15-37) U/L ALT 23 (14-59) U/L Alkaline Phosphatase 64 (46-116) U/L Total Protein 6.4 (6.4-8.2) g/dL Albumin 3.6 (3.4-5.0) g/dL Globulin 2.8 g/dL Albumin/Globulin Ratio 1.3 Amylase 36 (25-115) U/L Lipase 28.0 (16.0-77.0) U/L Imaging Data CT scan - abdomen: Radiologist's impression: ITS Impressions Abdomen/Pelvis CT 11/07/23 11:00 IMPRESSION: Jejunostomy tube is unchanged in the position. No fat stranding or fluid is noted in the location of the tube. Constipation. Electronically authenticated by: SCOT GREER Date: 11/07/2023 13:01 Discharge Plan Discharge Chief Complaint: Abdominal Pain Clinical Impression: Constipation Patient Disposition: Home, Self-Care Time of Disposition Decision: 13:08 Condition: Good Mode of Transportation: Private Vehicle Prescriptions / Home Meds: New mupirocin calcium 2 % cream 1 applic topical BID Qty: 15 0RF No Action hydroxyzine HCl 25 mg tablet 25 mg PO BID PRN (Reason: anxiety) liothyronine 5 mcg tablet 5 mcg PO QDAY topiramate 100 mg tablet 100 mg PO BID buspirone 10 mg tablet 10 mg PO TID methocarbamol 750 mg tablet 750 mg PO TID metoclopramide HCl 10 mg tablet 10 mg PO AC Linzess 290 mcg capsule 290 mcg PO DAILY albuterol sulfate 90 mcg/actuation HFA aerosol inhaler 2 puff INHALATION Q6H PRN (Reason: shortness of breath or wheezing) levothyroxine 75 mcg tablet 75 mcg PO .ACB escitalopram oxalate 20 mg tablet 20 mg PO DAILY mirtazapine 30 mg tablet 30 mg PO .HS pantoprazole 40 mg tablet,delayed release (DR/EC) 40 mg PO DAILY Nutrin 45 ml feeding tube Q1H Qty: 3000 11RF prochlorperazine maleate [Compazine] 10 mg tablet 10 mg PO Q6H PRN (Reason: nausea and vomiting) Qty: 60 3RF tramadol 50 mg tablet 50 mg PO Q6H PRN (Reason: pain) Qty: 28 0RF acetaminophen [Pain Relief (acetaminophen)] 325 mg tablet 650 mg PO Q4H PRN (Reason: pain) ondansetron 4 mg tablet,disintegrating 4 mg PO Q6H PRN (Reason: nausea and vomiting) Qty: 20 0RF prednisone 10 mg tablet 15 mg PO DAILY Print Language: Telugu Instructions: Constipation (ED) Referrals: Thomas Alas MD [Primary Care Provider] - 1 week
[2023-11-07] MEDS: PROMETHAZINE HCL 12.5 MG in 0.9 % SODIUM CHLORIDE 50 ML 202 MG IV (11:24)
[2023-11-07 11:25] LABS: Basophils Absolute Auto 0.1 10^3/uL (0.0-0.1); Basophils Percent Auto 1.3 % (0.2-2.0); Eosinophils Absolute Auto 0.2 10^3/uL (0.0-0.7); Eosinophils Percent Auto 4.9 % (0.9-7.0); Hematocrit 31.5 % (36.0-48.0); Hemoglobin 9.9 g/dL (12.0-16.0); Immature Granulocytes Abs Auto 0.01 10^3/uL (0.00-0.03); Immature Granulocytes Pct Auto 0.3 % (0.0-0.5); Lymphocytes Absolute Auto 1.5 10^3/uL (1.2-3.8); Lymphocytes Percent Auto 39.4 % (20.5-60.0); Mean Corpuscular HGB Conc 31.4 g/dL (29.9-35.2); Mean Corpuscular Hemoglobin 26.1 pg (26.7-34.0); Mean Corpuscular Volume 82.9 fL (81.0-99.0); Mean Platelet Volume 10.8 fL (9.5-13.5); Monocytes Absolute Auto 0.4 10^3/uL (0.3-0.8); Monocytes Percent Auto 10.7 % (1.7-12.0); Neutrophils Absolute Auto 1.7 10^3/uL (1.4-6.5); Neutrophils Percent Auto 43.4 % (43.0-75.0); Platelet Count 240 10^3/uL (150-450); Red Cell Distribution Width 14.3 % (11.0-15.0); White Blood Count 3.9 10^3/uL (4.0-11.0)
[2023-11-07] MEDS: 0.9 % SODIUM CHLORIDE 1,000 ML 125 ML IV (11:25)
[2023-11-07] MEDS: MORPHINE SULFATE 4 MG/ML VIAL IV ×2 (11:25→12:46)
[2023-11-07 11:51] LABS: Alanine Aminotransferase 23 U/L (14-59); Albumin Globulin Ratio 1.3; Albumin Level 3.6 g/dL (3.4-5.0); Alkaline Phosphatase 64 U/L (46-116); Amylase 36 U/L (25-115); Anion Gap 7.6; Aspartate Amino Transferase 27 U/L (15-37); BUN Creatinine Ratio 11.1; Bilirubin Direct 0.1 mg/dL (0.0-0.2); Bilirubin Total 0.4 mg/dL (0.2-1.0); Calcium 8.2 mg/dL (8.5-10.1); Carbon Dioxide 28.9 mmol/L (21.0-32.0); Chloride 101 mmol/L (98-107); Estimated GFR (African America >60 (>=60); Estimated GFR (Non-African Ame >60 (>=60); Globulin 2.8 g/dL; Glucose 97 mg/dL (74-106); Potassium 3.5 mmol/L (3.5-5.1); Sodium 134 mmol/L (136-145); Total Protein 6.4 g/dL (6.4-8.2)
[2023-11-07] MEDS: ONDANSETRON PF 4 MG/2 ML VIAL IV (12:46)
[2023-11-07 12:52] VITALS: BP 122/76
== END 2023-11-07 13:23 | disposition home or self-care (01) ==
PROVIDERS: Emergency Provider Emergency Medicine; PCP Family Medicine
DX: K59.00 Constipation, unspecified (principal); Z93.1 Gastrostomy status
CPT/HCPCS: 36415; 74177; 80048; 80076; 82150; 83690; 85025; 87070; 87075; 87150; 87186; 96365; 96375; 96376; 99284; J2250; J2270; J2405; Q9967

== ENCOUNTER 2023-11-11 10:14 | Outpatient (REF) | payer OTHER, SELFPAY ==
[2023-11-11 11:19] LABS: Basophils Percent Auto 0.6 % (0.2-2.0); Eosinophils Percent Auto 0.3 % (0.9-7.0); Hematocrit 31.4 % (36.0-48.0); Hemoglobin 9.7 g/dL (12.0-16.0); Lymphocytes Absolute Auto 0.8 10^3/uL (1.2-3.8); Lymphocytes Percent Auto 23.2 % (20.5-60.0); Mean Corpuscular HGB Conc 30.9 g/dL (29.9-35.2); Mean Corpuscular Hemoglobin 25.5 pg (26.7-34.0); Mean Corpuscular Volume 82.6 fL (81.0-99.0); Mean Platelet Volume 11.3 fL (9.5-13.5); Monocytes Absolute Auto 0.3 10^3/uL (0.3-0.8); Monocytes Percent Auto 7.4 % (1.7-12.0); Neutrophils Absolute Auto 2.4 10^3/uL (1.4-6.5); Neutrophils Percent Auto 68.5 % (43.0-75.0); Platelet Count 329 10^3/uL (150-450); Red Cell Distribution Width 14.6 % (11.0-15.0); White Blood Count 3.5 10^3/uL (4.0-11.0)
[2023-11-11 13:28] LABS: Alanine Aminotransferase 22 U/L (14-59); Albumin Globulin Ratio 1.2; Albumin Level 3.7 g/dL (3.4-5.0); Alkaline Phosphatase 71 U/L (46-116); Anion Gap 8.6; Aspartate Amino Transferase 26 U/L (15-37); BUN Creatinine Ratio 7.5; Bilirubin Total 0.3 mg/dL (0.2-1.0); Calcium 8.6 mg/dL (8.5-10.1); Carbon Dioxide 29.7 mmol/L (21.0-32.0); Chloride 103 mmol/L (98-107); Estimated GFR (African America >60 (>=60); Estimated GFR (Non-African Ame >60 (>=60); Globulin 3.2 g/dL; Glucose 85 mg/dL (74-106); Magnesium 2.1 mg/dL (1.8-2.4); Phosphorus 2.3 mg/dL (2.6-4.7); Potassium 4.3 mmol/L (3.5-5.1); Sodium 137 mmol/L (136-145); Total Protein 6.9 g/dL (6.4-8.2); Triglycerides 83 mg/dL (<=150)
== END 2023-11-11 10:15 | disposition home or self-care (01) ==
LOC: LAB 10:14
PROVIDERS: PCP Family Medicine
DX: E44.0 Moderate protein-calorie malnutrition (principal); R11.2 Nausea with vomiting, unspecified
CPT/HCPCS: 36415; 80053; 83735; 84100; 84478; 85025

== ENCOUNTER 2023-11-20 16:41 | Emergency (ER) | payer OTHER, SELFPAY ==
[2023-11-20 16:47] VITALS: BP 134/64; PULSE 93; TEMP 36.8; O2SAT 99; BMI 29.9
[2023-11-20] MEDS: ONDANSETRON 4 MG RAPDIS TABLET SL (17:26)
[2023-11-20 17:36] LABS: Basophils Absolute Auto 0.1 10^3/uL (0.0-0.1); Basophils Percent Auto 1.4 % (0.2-2.0); Eosinophils Absolute Auto 0.1 10^3/uL (0.0-0.7); Eosinophils Percent Auto 1.9 % (0.9-7.0); Hematocrit 32.3 % (36.0-48.0); Hemoglobin 10.1 g/dL (12.0-16.0); Immature Granulocytes Abs Auto 0.01 10^3/uL (0.00-0.03); Immature Granulocytes Pct Auto 0.3 % (0.0-0.5); Lymphocytes Absolute Auto 1.8 10^3/uL (1.2-3.8); Lymphocytes Percent Auto 49.2 % (20.5-60.0); Mean Corpuscular HGB Conc 31.3 g/dL (29.9-35.2); Mean Corpuscular Hemoglobin 25.7 pg (26.7-34.0); Mean Corpuscular Volume 82.2 fL (81.0-99.0); Mean Platelet Volume 10.7 fL (9.5-13.5); Monocytes Absolute Auto 0.4 10^3/uL (0.3-0.8); Monocytes Percent Auto 10.9 % (1.7-12.0); Neutrophils Absolute Auto 1.3 10^3/uL (1.4-6.5); Neutrophils Percent Auto 36.3 % (43.0-75.0); Platelet Count 320 10^3/uL (150-450); Red Blood Count 3.93 10^6/uL (4.20-5.40); Red Cell Distribution Width 14.7 % (11.0-15.0); White Blood Count 3.7 10^3/uL (4.0-11.0)
[2023-11-20 17:37] LABS: Bilirubin Urine NEGATIVE (NEGATIVE); Blood Urine NEGATIVE (NEGATIVE); Clarity Urine CLEAR (CLEAR); Color Urine YELLOW (YELLOW); Glucose Urine UA NEGATIVE (NEGATIVE); Ketones Urine NEGATIVE (NEGATIVE); Leukocyte Esterase Urine NEGATIVE (NEGATIVE); Nitrite Urine NEGATIVE (NEGATIVE); Protein Urine NEGATIVE (NEG/TRACE); Specific Gravity Urine 1.015 (1.005-1.025); Urobilinogen Urine 0.2 EU/dL (0.2-1.0)
--- NOTE | 2023-11-20 17:42 | ED.FEVER1 ---
HPI - Fever General Chief Complaint: Fever Stated Complaint: FEVER Time Seen by Provider: 11/20/23 16:53 Source: patient Mode of arrival: walk-in Limitations: no limitations History of Present Illness HPI Narrative: 33-year-old female presents here to the emergency room with a chief complaint of nausea vomiting. Patient has a history of chronic abdominal issues including constipation and chronic pain. She does have a PEG tube in place in the left lower quadrant which is no longer in use. She had been on antibiotics for an infection to the site previously. The area around the PEG tube does not appear to be infected at this time. She states she has not felt well today's medical he had a fever at home 100 degrees. She is afebrile here. She does also have a PICC line in that she has TPN daily. Related Data Home Medications ?Medication ?Instructions ?Recorded ?Confirmed hydroxyzine HCl 25 mg tablet 25 mg PO BID PRN anxiety 09/17/22 09/23/23 liothyronine 5 mcg tablet 5 mcg PO QDAY 09/17/22 09/23/23 topiramate 100 mg tablet 100 mg PO BID 09/17/22 09/23/23 buspirone 10 mg tablet 10 mg PO TID 06/14/23 09/23/23 linaclotide 290 mcg capsule 290 mcg PO DAILY 06/14/23 09/23/23 (Linzess) methocarbamol 750 mg tablet 750 mg PO TID 06/14/23 09/23/23 metoclopramide HCl 10 mg tablet 10 mg PO AC 06/14/23 09/23/23 albuterol sulfate 90 mcg/actuation 2 puff inhalation Q6H PRN 06/15/23 09/23/23 aerosol inhaler shortness of breath or wheezing escitalopram oxalate 20 mg tablet 20 mg PO DAILY 06/15/23 09/23/23 levothyroxine 75 mcg tablet 75 mcg PO .ACB 06/15/23 09/23/23 mirtazapine 30 mg tablet 30 mg PO .HS 06/15/23 09/23/23 pantoprazole 40 mg tablet,delayed 40 mg PO DAILY 06/15/23 09/23/23 release acetaminophen 325 mg tablet (Pain 650 mg PO Q4H PRN pain 06/24/23 08/15/23 Relief (acetaminophen)) prednisone 10 mg tablet 15 mg PO DAILY 09/23/23 09/23/23 Previous Rx's ?Medication ?Instructions ?Recorded Nutrin 45 ml feeding tube Q1H #3,000 mL 06/16/23 prochlorperazine maleate 10 mg 10 mg PO Q6H PRN nausea and 06/16/23 tablet (Compazine) vomiting #60 tabs tramadol 50 mg tablet 50 mg PO Q6H PRN pain #28 tabs 06/16/23 ondansetron 4 mg disintegrating 4 mg PO Q6H PRN nausea and 07/08/23 tablet vomiting #20 tabs mupirocin calcium 2 % topical cream 1 applic topical BID #15 grams 11/07/23 promethazine 25 mg tablet 25 mg PO QID PRN nausea and 11/20/23 vomiting #10 tabs Allergies Allergy/AdvReac Type Severity Reaction Status Date / Time adhesive Allergy Rash Verified 08/15/23 13:11 codeine Allergy Vomiting Verified 08/15/23 13:11 NSAIDS (Non-Steroidal Allergy intolerance Verified 08/15/23 13:11 Anti-Inflamma Review of Systems ROS Narrative All Systems are negative except as noted/marked.All systems reviewed and otherwise negative [facility] Medical History (Updated 11/20/23 @ 18:23 by Raegan Frye) Nausea and vomiting ?R11.2 - Nausea with vomiting, unspecified (ICD-10) Flank pain ?R10.9 - Unspecified abdominal pain (ICD-10) Abdominal pain ?R10.9 - Unspecified abdominal pain (ICD-10) Acute abdomen ?R10.0 - Acute abdomen (ICD-10) Intractable nausea and vomiting ?R11.2 - Nausea with vomiting, unspecified (ICD-10) Intractable abdominal pain ?R10.9 - Unspecified abdominal pain (ICD-10) Depression ?F32.A - Depression, unspecified (ICD-10) Asthma ?J45.909 - Unspecified asthma, uncomplicated (ICD-10) Dyspareunia Pelvic pain ?R10.2 - Pelvic and perineal pain (ICD-10) Ovarian cyst ?N83.209 - Unspecified ovarian cyst, unspecified side (ICD-10) PONV (postoperative nausea and vomiting) ?R11.2 - Nausea with vomiting, unspecified (ICD-10) ?Z98.890 - Other specified postprocedural states (ICD-10) PCOS (polycystic ovarian syndrome) ?E28.2 - Polycystic ovarian syndrome (ICD-10) Hypothyroidism (acquired) ?E03.9 - Hypothyroidism, unspecified (ICD-10) Anxiety ?F41.9 - Anxiety disorder, unspecified (ICD-10) GERD (gastroesophageal reflux disease) ?K21.9 - Gastro-esophageal reflux disease without esophagitis (ICD-10) Sleep apnea ?G47.30 - Sleep apnea, unspecified (ICD-10) Anemia ?D64.9 - Anemia, unspecified (ICD-10) Fibromyalgia ?M79.7 - Fibromyalgia (ICD-10) Syncope (07/07/13) ?R55 - Syncope and collapse (ICD-10) Shingles ?B02.9 - Zoster without complications (ICD-10) Headache ?R51.9 - Headache, unspecified (ICD-10) Migraine ?G43.909 - Migraine, unspecified, not intractable, without status migrainosus (ICD-10) Mechanical ileus (01/31/20) ?K56.609 - Unspecified intestinal obstruction, unspecified as to partial versus complete obstruction (ICD-10) COVID-19 (~02/2020) ?U07.1 - COVID-19 (ICD-10) Kidney stones ?N20.0 - Calculus of kidney (ICD-10) Surgical History (Updated 06/14/23 @ 16:55 by Marsha Du) S/P percutaneous endoscopic gastrostomy (PEG) tube placement ?Z93.1 - Gastrostomy status (ICD-10) 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 - Celiac artery compression syndrome (ICD-10) H/O shoulder surgery (2022) ?Z98.890 - Other specified postprocedural states (ICD-10) History of hip surgery ?Z98.890 - Other specified postprocedural states (ICD-10) S/P right knee arthroscopy ?Z98.890 - Other specified postprocedural states (ICD-10) S/P left knee arthroscopy ?Z98.890 - Other specified postprocedural states (ICD-10) Hx of tonsillectomy ?Z90.89 - Acquired absence of other organs (ICD-10) History of thoracic surgery (~2021) ?Z98.890 - Other specified postprocedural states (ICD-10) History of esophagogastroduodenoscopy (EGD) (10/04/13) ?Z98.890 - Other specified postprocedural states (ICD-10) History of cholecystectomy (10/06/13) ?Z90.49 - Acquired absence of other specified parts of digestive tract (ICD-10) Delivery by section (~2016) Delivery by section (01/17/18) H/O colonoscopy (~2018) ?Z98.890 - Other specified postprocedural states (ICD-10) S/P right knee arthroscopy (07/21/18) ?Z98.890 - Other specified postprocedural states (ICD-10) Delivery by section (06/19/19) History of appendectomy (09/25/19) ?Z90.49 - Acquired absence of other specified parts of digestive tract (ICD-10) H/O laparoscopy (11/10/19) ?Z98.890 - Other specified postprocedural states (ICD-10) History of liver biopsy (~04/2020) ?Z98.890 - Other specified postprocedural states (ICD-10) H/O laparoscopy (07/18/20) ?Z98.890 - Other specified postprocedural states (ICD-10) H/O arthroscopy of right knee (08/07/20) ?Z98.890 - Other specified postprocedural states (ICD-10) S/P laparoscopic sleeve gastrectomy (09/03/20) ?Z98.84 - Bariatric surgery status (ICD-10) H/O: hysterectomy (11/12/20) ?Z90.710 - Acquired absence of both cervix and uterus (ICD-10) History of hernia repair (03/20/21) ?Z98.890 - Other specified postprocedural states (ICD-10) ?Z87.19 - Personal history of other diseases of the digestive system (ICD-10) Family History (Updated 06/14/23 @ 16:56 by Marsha Du) Other Family history of cancer Family history of diabetes mellitus Family history of hypertension Family history of myocardial infarction PONV (postoperative nausea and vomiting) Social History (Updated 06/14/23 @ 16:57 by Marsha Du) Within the past year, how often did you have a drink containing alcohol: never Score interpretation: A score less than 3 is consistent with normal alcohol consumption. Smoking status: Never smoker Non-prescribed substance use: denies use Highest level of school completed/degree received: Master's degree Are you now , , , , never or living with a partner: In a typical week, how many times do you talk on the telephone with family, friends, or neighbors: 3 or more times per week How often do you get together with friends or relatives: twice per week How often do you attend congregational or hindu services: 4 or more times per year Do you belong to any clubs or organizations such as congregational groups unions, [employer] or athletic groups, or school groups: no Total score: 3 Score interpretation: A score of greater than or equal to 2 indicates the lowest level of social isolation. Little interest or pleasure in doing things: not at all Feeling down, depressed, or hopeless: not at all Feel stressed/tense/nervous/anxious/difficulty sleeping: to some extent Do you think of yourself as: straight/heterosexual Gender Identity: female Exam Narrative Exam Narrative: Nurses note and vital signs reviewed and patient is not hypoxic. General: The patient appears well and in no apparent distress. Patient is resting comfortably on cart. Skin: Warm, dry, no pallor noted. There is no rash noted. Head: Normocephalic, atraumatic Chest: PICC line, Cardiovascular: Regular Rate and Rhythm Respiratory: Patient is in no distress, no accessory muscle use, lungs are clear to auscultation, no wheezing, rales or rhonchi Back: non-tender, no CVA tenderness bilaterally to percussion. GI: peg tube to the left lower quadrant, Normal bowel sounds, no tenderness to palpation, no masses appreciated. No rebound, guarding, or rigidity noted. Musculoskeletal: The patient has no evidence of calf tenderness, no pitting edema, symmetrical pulses noted bilaterally Neurological: A&O x4, normal speech Psychiatric: Cooperative Constitutional Vital Signs, click to edit/add: Last Vital Signs Temp 98.2 F 11/20/23 16:47 Pulse 93 H 11/20/23 16:47 Resp 18 11/20/23 16:47 BP 134/64 11/20/23 16:47 Pulse Ox 99 11/20/23 16:47 O2 Del Method Room Air 11/20/23 16:47 Course Vital Signs Vital signs: Vital Signs Temperature 98.2 F 11/20/23 16:47 Pulse Rate 93 H 11/20/23 16:47 Respiratory Rate 18 11/20/23 16:47 Blood Pressure 134/64 11/20/23 16:47 Pulse Oximetry 99 11/20/23 16:47 Oxygen Delivery Method Room Air 11/20/23 16:47 Temperature 98.2 F 11/20/23 16:47 Pulse Rate 93 H 11/20/23 16:47 Respiratory Rate 18 11/20/23 16:47 Blood Pressure 134/64 11/20/23 16:47 Pulse Oximetry 99 11/20/23 16:47 Oxygen Delivery Method Room Air 11/20/23 16:47 MDM - Fever MDM Narrative Medical decision making narrative: 33-year-old female presents here to the emergency room with a chief complaint of nausea vomiting. Patient has a history of chronic abdominal issues including constipation and chronic pain. She does have a PEG tube in place in the left lower quadrant which is no longer in use. She had been on antibiotics for an infection to the site previously. The area around the PEG tube does not appear to be infected at this time. She states she has not felt well today's medical he had a fever at home 100 degrees. She is afebrile here. She does also have a PICC line in that she has TPN daily. Presented here with a chief complaint of nausea vomiting. She has had no episodes of vomiting while here in the emergency room upon arrival to the emergency room blood was drawn and urine was collected. Patient did not feel she needed IV fluids I did tell her we were low on fluids in the hospital due to shortage. Patient's vital signs are stable she was currently afebrile. Lab work was reviewed and shows no acute changes from previous blood work. Patient was medicated here with Zofran and Phenergan which did help to alleviate her nausea symptoms. Will discharge her home prescription of Phenergan. Patient will follow-up with her primary care physician Dr. Alas this week. Patient is made aware of blood work results and agrees with her plan of care. Her abdomen is soft nontender to palpation bowel sounds are active. She does have a history of constipation in the past she denies any symptoms of constipation or irritability at this time. Patient is stable to be discharged home. Lab Data Labs: Lab Results 11/20/23 11/20/23 Range/Units 17:27 17:28 WBC 3.7 L (4.0-11.0) 10^3/uL RBC 3.93 L (4.20-5.40) 10^6/uL Hgb 10.1 L (12.0-16.0) g/dL Hct 32.3 L (36.0-48.0) % MCV 82.2 (81.0-99.0) fL MCH 25.7 L (26.7-34.0) pg MCHC 31.3 (29.9-35.2) g/dL RDW 14.7 (11.0-15.0) % Plt Count 320 (150-450) 10^3/uL MPV 10.7 (9.5-13.5) fL Neut % (Auto) 36.3 L (43.0-75.0) % Lymph % (Auto) 49.2 (20.5-60.0) % [place] % (Auto) 10.9 (1.7-12.0) % Eos % (Auto) 1.9 (0.9-7.0) % Baso % (Auto) 1.4 (0.2-2.0) % Neut # (Auto) 1.3 L (1.4-6.5) 10^3/uL Lymph # (Auto) 1.8 (1.2-3.8) 10^3/uL [place] # (Auto) 0.4 (0.3-0.8) 10^3/uL Eos # (Auto) 0.1 (0.0-0.7) 10^3/uL Baso # (Auto) 0.1 (0.0-0.1) 10^3/uL Abs Immat Gran (auto) 0.01 (0.00-0.03) 10^3/uL Imm/Tot Granulo (auto) 0.3 (0.0-0.5) % Sodium 138 (136-145) mmol/L Potassium 3.8 (3.5-5.1) mmol/L Chloride 108 H (98-107) mmol/L Carbon Dioxide 23.1 (21.0-32.0) mmol/L Anion Gap 10.7 BUN 7.0 (7.0-18.0) mg/dL Creatinine 0.85 (0.55-1.02) mg/dL Est GFR ( Amer) >60 (>=60 mL/min/1.73m^2) Est GFR (Non-Af Amer) >60 (>=60 mL/min/1.73m^2) BUN/Creatinine Ratio 8.2 Glucose 91 (74-106) mg/dL Calcium 8.3 L (8.5-10.1) mg/dL Total Bilirubin 0.2 (0.2-1.0) mg/dL AST 48 H (15-37) U/L ALT 32 (14-59) U/L Alkaline Phosphatase 84 (46-116) U/L Total Protein 6.4 (6.4-8.2) g/dL Albumin 3.3 L (3.4-5.0) g/dL Globulin 3.1 g/dL Albumin/Globulin Ratio 1.1 Urine Color Yellow (YELLOW) Urine Clarity Clear (CLEAR) Urine pH 7.0 (5.0-9.0) Ur Specific [place] 1.015 (1.005-1.025) Urine Protein Negative (NEG/TRACE) mg/dL Urine Glucose (UA) Negative (NEGATIVE) mg/dL Urine Ketones Negative (NEGATIVE) mg/dL Urine Occult Blood Negative (NEGATIVE) Urine Nitrite Negative (NEGATIVE) Urine Bilirubin Negative (NEGATIVE) Urine Urobilinogen 0.2 (0.2-1.0) EU/dL Ur Leukocyte Esterase Negative (NEGATIVE) Discharge Plan Discharge Chief Complaint: Fever Clinical Impression: Nausea, Abdominal pain Patient Disposition: Home, Self-Care Time of Disposition Decision: 18:23 Condition: Good Prescriptions / Home Meds: New promethazine 25 mg tablet 25 mg PO QID PRN (Reason: nausea and vomiting) Qty: 10 0RF No Action hydroxyzine HCl 25 mg tablet 25 mg PO BID PRN (Reason: anxiety) liothyronine 5 mcg tablet 5 mcg PO QDAY topiramate 100 mg tablet 100 mg PO BID buspirone 10 mg tablet 10 mg PO TID methocarbamol 750 mg tablet 750 mg PO TID metoclopramide HCl 10 mg tablet 10 mg PO AC Linzess 290 mcg capsule 290 mcg PO DAILY albuterol sulfate 90 mcg/actuation HFA aerosol inhaler 2 puff INHALATION Q6H PRN (Reason: shortness of breath or wheezing) levothyroxine 75 mcg tablet 75 mcg PO .ACB escitalopram oxalate 20 mg tablet 20 mg PO DAILY mirtazapine 30 mg tablet 30 mg PO .HS pantoprazole 40 mg tablet,delayed release (DR/EC) 40 mg PO DAILY Nutrin 45 ml feeding tube Q1H Qty: 3000 11RF prochlorperazine maleate [Compazine] 10 mg tablet 10 mg PO Q6H PRN (Reason: nausea and vomiting) Qty: 60 3RF tramadol 50 mg tablet 50 mg PO Q6H PRN (Reason: pain) Qty: 28 0RF acetaminophen [Pain Relief (acetaminophen)] 325 mg tablet 650 mg PO Q4H PRN (Reason: pain) ondansetron 4 mg tablet,disintegrating 4 mg PO Q6H PRN (Reason: nausea and vomiting) Qty: 20 0RF prednisone 10 mg tablet 15 mg PO DAILY mupirocin calcium 2 % cream 1 applic topical BID Qty: 15 0RF Print Language: Moldovan Instructions: Acute Nausea and Vomiting (ED) Referrals: Thomas Alas MD [Primary Care Provider] - 1 week
[2023-11-20 17:52] LABS: Alanine Aminotransferase 32 U/L (14-59); Albumin Globulin Ratio 1.1; Albumin Level 3.3 g/dL (3.4-5.0); Alkaline Phosphatase 84 U/L (46-116); Anion Gap 10.7; Aspartate Amino Transferase 48 U/L (15-37); BUN Creatinine Ratio 8.2; Bilirubin Total 0.2 mg/dL (0.2-1.0); Calcium 8.3 mg/dL (8.5-10.1); Carbon Dioxide 23.1 mmol/L (21.0-32.0); Chloride 108 mmol/L (98-107); Estimated GFR (African America >60 (>=60 mL/min/1.73m^2); Estimated GFR (Non-African Ame >60 (>=60 mL/min/1.73m^2); Globulin 3.1 g/dL; Glucose 91 mg/dL (74-106); Potassium 3.8 mmol/L (3.5-5.1); Sodium 138 mmol/L (136-145); Total Protein 6.4 g/dL (6.4-8.2)
[2023-11-20] MEDS: PROMETHAZINE HCL 25 MG/ML VIAL IM (17:53)
[2023-11-20 17:58] LABS: Urine Microscopic Indicated NO
--- OUTSIDE RECORDS SUMMARY | 2023-11-20 18:01 | XMS_ITS | CCD ---
Author Organization [facility] Care Team Providers Care Head Shipper Name Role Phone PHYSICIAN, DEFAULT Unavailable Unavailable PHYSICIAN, DEFAULT Unavailable Unavailable Shanna June Primary Care Provider Unavail able Slade STOCK GRADER, Shanna Primary Care Provider Mona vailable Slade PAPER SORTER AND COUNTER - VISUAL TRAINING AIDE, Shanna Primary Care Provid er LUCIE MORA [...] June Unavailable Wally Foley Primary Care Provider [phone] Antelmo Davey MD Unavailable Deacon Kat MD Unavailable Shanna June CNP Unavailable Shanna June CNP Primary Care Provider [phone] Antelmo Davey MD Unavailable Deacon Kat MD Unavailable [phone] Shanna June CNP Unavailable Shanna June CNP Primary Care Provider Slade OPERATIONAL TRAINER, Shanna Unavailable [phone] Slade OPERATIONAL TRAINER, Shanna Primary Care Provider Tamica JOHNSON Edcharles Unger Unavailable Jacquelyn JOHNSON Deacon Gregory Unavailable Slade OPERATIONAL TRAINER, Shanna Unavailable [phone] Slade OPERATIONAL TRAINER, Shanna Primary Care Provider Wally Foley MD [...] Unavailable ZURDO ., DR BURCH Admitting Unavailable [place], DR BALDOMERO Campos Consulting Unavailable ZURDO ., [...] WALLY FOLEY Primary Care Unavailable EMMY WATSON [id number] Attending Unavailable WALLY FOLEY Primary Care Unavailable [...] Consulting Unavailable CORIE HENDRICKSON Attending Unavailable Cristhian PAPER SORTER AND COUNTER.Jaquan CAMPOS Primary Care Provider JAQUAN MORROW L Primary Care Unavailable VIC RAMOS Attending Unavailable VIC RAMOS Admitting Unavailable ZEYAD Morrow-C Jaquan Ortega Primary Care Provider DO Claus Obrien Emergency Provider GENERIC PROVIDER, NO ASSIGNED PCP Primary Care Unavailable Generic Provider , No Assigned Pcp Primary Car e Provider Unavailable Generic Provider , No Assigned Pcp Primary Car e Provider Unavailable Bullimore, STOCK GRADER-BC Trace E Emergency Provider Generic Provider , No Assigned Pcp Primary Car e Provider Unavailable Cristhian VISUAL TRAINING AIDE-C Jaquan Ortega Primary Care Provider Beverley STOCK GRADER-RAZIA Trace E Emergency Provider SLIM Parker Emergency Provider Cristhian PAPER SORTER AND COUNTER.BETH, Jaquan Johnson Primary Care Provider Generic Provider , No Assigned Pcp Primary Car e Provider Unavailable GENERIC PROVIDER, NO ASSIGNED PCP Primary Care Unavailable Jacquelyn JOHNSON, Deacon Ahumada Unavailable [phone] Generic Provider , No Assigned Pcp Primary Car e Provider Unavailable Cristhian VISUAL TRAINING AIDE-C Jaquan Ortega Primary Care Provider MD Thomas Calix Primary Care Provider [phone] GABRIELLA Sabillon Emergency Provider [phone] MD Tahir Whitt Admit Provider MD Tahir Whitt Attending Provider DO Camden Rodriguez Admit Provider DO Camden Rodriguez Attending Provider [phone] MD Keven Kimbrough Other Provider DO Jeramy Cunningham Emergency Provider Agustin Bautista Unavailable Thomas Calix MD Primary Care Provider [phone] NONE, XXXX Primary Care Physician Unavailab DO Claus Morris Emergency Provider Thomas Calix Primary Care Unavailable Michael, Yazid Admitting Unavailable Michael, Yazid Attending Unavailable Keven Kimbrough Consulting Unavailable Thomas Calix Primary Care Unavailable Jeramy Cunningham Admitting Unavailable Jeramy Cunningham Attending Unavailable Gabino Parker Admitting Unavailable Gabino Parker Attending Unavailable Jaquan Morrow Primary Care Unavailable Trace Lowery Attending Unavailable Jaquan Morrow Primary Care Unavailable Beverley, Trace E Admitting Unavailable Claus Obrien A Admitting Unavailable Keister, Claus Arzate Attending Unavailable Cristhian, Jaquan Ortega Primary Care Unavailable Hoy, Thomas M Primary Care Unavailable Keister, Claus A Admitting Unavailable Keister, Claus A Attending Unavailable Shaan Sabillon Admitting Unavailable Shaan Sabillon Attending Unavailable Hoy, Thomas M Primary Care Unavailable JACKSON ANDERSON Referring Unavailab KEESHA Cook Attending Unavailable CRISTHIAN, JAQUAN L Primary Care Unavailable HOY, THOMAS M Primary Care Unavailable ANTONIETTA ÁLVAREZ MD Attending Unavailable RAYNA BILLINGSLEY Admitting Unavailable HOY, THOMAS M Primary Care Unavailable MEGHAN SPANGLER Attending Unavailable STEVE ESTRADA Attending Unavailable CRISTHIAN, JAQUAN L Primary Care Unavailable ELISA VIVEROS Consulting Unavailable BEATRICEJACKIRASHMI Admitting Unavailable HAYDEECLARICEALED Consulting Unavailable SEAN STEVE Admitting Unavailable CRISTHIAN, JAQUAN L Primary Care Unavailable MANICKAM, SUNDARA Attending Unavailable CHETNA NESS Unavailable CRISELDA NO Admitting Unavailable LUCY MAIDANA Attending Unavailable CRISTHIAN, JAQUAN L Primary Care Unavailable RAYNA BILLINGSLEY Attending Unavailable JACOBO LYNCH Admitting Unavailable CRISTHIAN, JAQUAN L Primary Care Unavailable CHEYENNE FARNSWORTH Consulting Unavailable HOY, THOMAS M Primary Care Unavailable LIBBY URBINA Admitting Unavailable MANICKAM, SUNDARA Attending Unavailable SERENA STALEY Attending Mona vailable HOY, THOMAS M Primary Care Unavailable CORIE CRAFT M.D. Attending Unavaila ble HOY, THOMAS M Primary Care Unavailable HOY, THOMAS M Primary Care Unavailable LOKESH PRAKASH Attending Unavailable DEACON KAT Referring Unavailable CRISTHIAN, JAQUAN L Primary Care Unavailable CRISTHIAN, JAQUAN SHANNON Primary Care Unavailable GUTDEACON MARCANO Admitting Unavailable HOY, THOMAS M Primary Care Unavailable GUTDEACON MARCANO Attending Unavailable CRISTHIAN, JAQUAN ORTEGA Primary Care Unavailable DEACON KAT Admitting Unavailable GUTDEACON MARCANO Attending Unavailable CRISTHIAN, JAQUAN ORTEGA Primary Care Unavailable SERENA HAMM Attending UnavailDEACON Guevara Admitting Unavailable DEACON KAT Attending Unavailable DEACON KAT Referring Unavailable CRISTHIAN, JAQUAN ORTEGA Primary Care Unavailable GUTNICKDEACON R Admitting Unavailable FARIDA BURGOS Consulting Unavailable DEACON KAT Attending Unavailable CRISTHIAN, JAQUAN ORTEGA Primary Care Unavailable CRISTHIAN, JAQUAN ORTEGA Primary Care Unavailable NICKERSONSCARLETTU K Referring Unavailable TIFFANIE CHIU Attending Unavailabl e CRISTHIAN, JAQUAN ORTEGA Primary Care Unavailable GUTDEACON MARCANO Referring Unavailable CRISTHIAN, JAQUAN ORTEGA Primary Care Unavailable CRISTHIAN, JAQUAN ORTEGA Primary Care Unavailable GUTDEACON MARCANO R Admitting Unavailable EARNEST MC Referring Unavailable DEACON KAT Attending Unavailable MARCOS MORENO Attending Unavailable JR. KELVIN, TINO Abbasi Attending Unavaila ble JR. KELVIN, TINO Abbasi Referring Unavaila ble STEPJR. RASHAD, TINO Abbasi Attending Unavaila ble STEPJR. RASHAD, TINO Abbasi Referring Unavaila ble STEPJR. RASHAD, TINO Abbasi Attending Unavaila MARCOS Betts Attending Unavailable JR. KELVIN, TINO Abbasi Attending Unavaila MARCOS Betts Attending Unavailable Cristhian, STOCK GRADER Jaquan L Attending Unavailable Cristhian, STOCK GRADER Jaquan L Attending Unavailable Rajni Rouse Attending Unavailable GABRIELLA PRAKASH Attending Unavailab le Cristhian, STOCK GRADER Jaquan L Admitting Unavailable Cristhian, STOCK GRADER Jaquan L Admitting Unavailable Cristhian, STOCK GRADER Jaquan L Admitting Unavailable Cristhian, STOCK GRADER Jaquan L Admitting Unavailable Cristhian, STOCK GRADER Jaquan L Attending Unavailable Mateusz Garcia Attending Unavailable Earnest Jett Attending Unavailable Ashutosh Albright Attending Unavailable Mateusz Garcia Attending Unavailable Cristhian, STOCK GRADER Jaquan L Attending Unavailable Cristhian, STOCK GRADER Jaquan L Attending Unavailable Cristhian, STOCK GRADER Jaquan L Attending Unavailable Cristhian, STOCK GRADER Jaquan L Attending Unavailable Cristhian, STOCK GRADER Jaquan L Attending Unavailable Cristhian, STOCK GRADER Jaquan L Attending Unavailable Earnest Jett Attending Unavailable Jose Ramon, Astrit H Attending Unavailable Mateusz Garcia Attending Unavailable Cristhian, STOCK GRADER Jaquan L Attending Unavailable Cristhian, STOCK GRADER Jaquan L Admitting Unavailable Jon Rivera Consulting UnavailMoncho Ma Attending Unavailable Paster, Moncho J. Admitting Unavailable MD Jon Rivera Talal Consulting Unava ilable Sarmini, Jon Talal Consulting Unavaila ble Sarmini, Jon Talal Consulting Unavaila ble Adamowicz, Gabino Consulting Unavailable Adamowicz, DO Gabino Consulting Unavailabl e Adamowicz, Gabino Consulting Unavailable Adamowicz, Gabino Consulting Unavailable Adamowicz, Gabino Consulting Unavailable Adamowicz, Gabino Consulting Unavailable Adamowicz, Gabino Consulting Unavailable Adamowicz, Gabino Consulting Unavailable Adamowicz, Gabino Consulting Unavailable Ashutosh Albright Attending Unavailable Mateusz Garcia Attending Unavailable Lokesh Terry Attending Unavailable Cristhian, STOCK GRADERJohn Johnson Attending Unavailable Cristhian, STOCK GRADER Jaquan Johnson Attending Unavailable Cristhian, STOCK GRADER Jaquan Johnson Attending Unavailable Cristhian, VAHID Castillo L Attending Unavailable SHERRY MAGAÑA M Attending Unavailable GENERIC PROVIDER, NO ASSIGNED PCP Primary Care Unavailable XIOMARA PETTY Attending Unavailable GÓMEZ WOOSBAHMAN M Referring Unavailable GENERIC PROVIDER, NO ASSIGNED PCP Primary Care Unavailable SHERRY MAGAÑA Attending Unavailable GENERIC PROVIDER, NO ASSIGNED PCP Primary Care Unavailable XIOMARA PETTY Referring Unavailable GENERIC PROVIDER, NO ASSIGNED PCP Primary Care Unavailable GÓMEZ WOOSBAHMAN M Admitting Unavailable GENERIC PROVIDER, NO ASSIGNED PCP Primary Care Unavailable DOLORES COX Attending Unavaila JIN Holt Consulting Unavailable GENERIC PROVIDER, NO ASSIGNED PCP Primary Care Unavailable MIGUEL ANGEL PALOMO Primary Care Unavailable EVE AGOSTO Consulting Unavailable GÓMEZ WOOSBAHMAN M Admitting Unavailable GÓMEZ WOOSBAHMAN M Attending Unavailable GÓMEZ WOOSBAHMAN M Consulting Unavailable GLOVATSKAYA, BECKY Consulting Unavailable JAH-PATRICK, KURT Consulting Unavailable PARK, WOOSUP M Attending Unavailable PARK WOOSBAHMAN M Attending Unavailable WINTER RICKETTS Primary Care Unavailable GÓMEZ WOOSBAHMAN M Attending Unavailable GENERIC PROVIDER, NO ASSIGNED PCP Primary Care Unavailable GENERIC PROVIDER, NO ASSIGNED PCP Primary Care Unavailable BALDOMERO WOODARD Admitting Unavailable DOLORES COX Attending Unavaila ble GÓMEZ WOOSBAHMAN Flores Consulting Unavailable DAVID VALADEZ Referring Unavailable GENERIC PROVIDER, NO ASSIGNED PCP Primary Care Unavailable Wally Foley MD Primary Care Provider Shanna June CNP Primary Care Provider THOMAS CALIX M Primary Care Unavailable SELF Referring Unavailable PABLO LEBRON Attending Unavailable HOKatarina, THOMAS M Primary Care Unavailable PABLO LEBRON Attending Unavailable PABLO LEBRON Referring Unavailable CRISTHIAN, JAQUAN L Primary Care Unavailable PABLO LEBRON Attending Unavailable PABLO ELBRON Attending Unavailable PABLO LEBRON Referring Unavailable CRISTHIAN, JAQUAN L Primary Care Unavailable CRISTHIAN, JAQUAN ORTEGA Primary Care Unavailable RYLEE THACKER Attending Unavailable THACKERRYLEE Referring Unavailable HOY, THOMAS M Primary Care Unavailable GEORGINA CARRILLO Referring Unavailable DEACON KAT Attending Unavailable CRISTHIAN, JAQUAN ORTEGA Primary Care Unavailable SELF Referring Unavailable CRISTHIAN, JAQUAN ORTEGA Primary Care Unavailable MARCOS MORENO Referring Unavailable FRANCISCO J STEVE Attending Unavailable CRISTHIAN, JAQUAN ORTEGA Referring Unavailable HOY, THOMAS M Primary Care Unavailable CRISTHIAN, JAQUAN ORTEGA Referring Unavailable GEORGINA CARRILLO Attending Unavailable HOY, THOMAS M Primary Care Unavailable DEACON KAT Attending Unavailable HOY, THOMAS M Primary Care Unavailable DEACON KAT Referring Unavailable HOY, THOMAS M Primary Care Unavailable SELF Referring Unavailable CORIE ALVAREZ Attending Unavailable CRISTHIAN, JAQUAN ORTEGA Primary Care Unavailable KARINA العلي Attending Unavailable CRISTHIANJAQUAN Primary Care Unavailable RYLEE THACKER Attending Unavailable RYLEE THACKER Referring Unavailable DEACON KAT Referring Unavailable CRISTHIANJAQUAN Primary Care Unavailable BREANNA STERN Attending Unavailable DANYELL IBRAHIM Attending Unavailable DANYELL IBRAHIM Admitting Unavailable HOY, THOMAS M Primary Care Unavailable HOY, THOMAS M Primary Care Unavailable BREANNA STERN Attending Unavailable CRISTHIANJAQUAN Primary Care Unavailable SHANNA WOODS Attending Unavailable ROMIE HAIRSTON Admitting Unavailable HOY, THOMAS M Primary Care Unavailable AGUSTIN ZAMORANO Attending Unavailable CRISTHIANJAQUAN Primary Care Unavailable DEACON KAT Attending Unavailable CRISTHIAN, JAQUAN ORTEGA Primary Care Unavailable HOY, THOMAS M Primary Care Unavailable BOOGIE MURGUIA Attending Unavailable VIC RAMOS Referring Unavailable VIC RAMOS Attending Unavailable HOY, THOMAS M Primary Care Unavailable DEACON KAT Attending Unavailable HOY, THOMAS M Primary Care Unavailable HOYCHERYLTHOMAS M Primary Care Unavailable DEACON KAT Referring Unavailable HOY, THOMAS M Primary Care Unavailable HOY, THOMAS M Primary Care Unavailable STEPHANIE ROGERS Attending Unavailable KASIE AVALOS Referring Unavailable CRISTHIANJAQUAN VALENCIA Primary Care Unavailable VIC RAMOS Attending Unavailable THOMAS CALIX M Primary Care Unavailable ROBBIE, KASIE Referring Unavailable Britt Cross Attending Unavailable THOMAS CALIX M Primary Care Unavailable ROUPHAELKASIE Referring Unavailable HOY THOMAS M Primary Care Unavailable ROUPHAKASIE JOSEPH Referring Unavailable ROUPHAKASIE JOSEPH Attending Unavailable THOMAS CALIX M Primary Care Unavailable SEN MARCUS Admitting Unavaila ble YOGI, THOMAS M Primary Care Unavailable SHANNA WOODS Attending Unavailable CHERYL CALIXLAS M Primary Care Unavailable CRISTHIAN, JAQUAN ORTEGA Primary Care Unavailable KASIE AVALOS Attending Unavailable CRISTHIANJAQUAN VALENCIA Primary Care Unavailable DEACON KAT Attending Unavailable CRISTHIANJAQUAN VALENCIA Primary Care Unavailable VIC RAMOS Attending Unavailable Allergies Allergy Classification Reported Allergen(s) Allergy Type Date of Onset Reaction(s) Facility [facility] (7 sources) Codeine; Translations: [codeine] Drug Allergy 10-04-19 20 GI Upset [facility] (5 sources) Codeine And Related Propensity to adverse reactions to drug 07-08-19 14 Other (See Comments), Nausea And Vomiting [facility] (20 sources) Codeine; Translations: [codeine] Drug Allergy 10-04-19 20 GI Upset, Nausea/vomitin g [facility] (3 sources) Propofol Drug Allergy 06-19-19 22 Other: See Comments [facility] (20 sources) Adhesive Tape-Silicones; Translations: [ADHESIVE TAPE-SILICONES] Drug Intolerance 02-07-20 20 Intolerance [facility] (2 sources) Morphine And Related Propensity to adverse reactions to drug 07-08-19 14 Other (See Comments), Nausea And Vomiting [facility] (7 sources) Codeine Drug Allergy vomiting [facility] Other (4 sources) Acetaminophen / oxyCODONE Drug Allergy anaphylaxis [facility] Other (20 sources) Non-steroidal anti-inflammator y agent; Translations: [NSAIDS (NON-STEROIDAL ANTI-INFLAMMATOR Y DRUG)] Propensity to adverse reactions to drug 01-30-20 Contraindicati on-Medical Surgical, Nausea/vomitin g [facility] Work Phone: (1 source) Codeine Drug Allergy 07-08-19 14 [facility] (1 source) Anastia Drug allergy (disorder) [facility] (16 sources) Non-steroidal anti-inflammator y agent; Translations: [NSAIDs] Drug allergy Unknown (qualifier value) [facility] (2 sources) Acetaminophen; Translations: [acetaminophen] Drug Allergy 04-06-19 anaphylaxis [facility] (8 sources) oxyCODONE; Translations: [oxycodone] Drug Allergy 04-06-19 24 anaphylaxis [facility] (6 sources) NSAIDS (Non-Steroidal Anti-Inflamma; Translations: [NSAIDS (Non-Steroidal Anti-Inflamma] Propensity to adverse reactions 07-16-19 24 d/t surgery [facility] (1 source) Codeine Drug Allergy 08-21-19 [facility] Medications Current Medications Medication Drug [...] tab(s), Oral, BID, 30 tab(s), Refill(s) 0, [facility]/pharmacy #[id number], 167.2, cm, 05/05/22 13:30:00 EDT, [...] for 3 day(s), 10 tab(s), Refill(s) 0, [facility]/pharmacy #[id number], 168, cm, 10/19/22 8:44:00 EDT, [...] day(s), # 28 tab(s), Refills(s) 0, Pharmacy: 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 12/08/2022 Discontinued (Erroneous entry) take 2 puff(s) by in halation every [...] puff(s), Inhalation, q6hr, 18 gm, Refill(s) 3, [facility]/pharmacy #[id number], 167, cm, 05/17/23 14:25:00 EDT, Height/Length Dosing, 81, kg, 05/17/23 14:25:00 EDT, Weight Dosing Start Date: 05/31/23 Status: Ordered Start: 12-30-2022 take 2 puff(s) by in halation every six hours Albuterol (Eqv-Ventolin HFA) 90 mcg/inh inhalation aerosol 2 puff(s), Inhalation, q6hr, 18 gm, Refill(s) 0, [facility]/pharmacy #[id number], 168, cm, 12/29/22 15:01:00 EST, Height/Length [...] day(s), # 6 tab(s), Refills(s) 0, Pharmacy: [facility]/pharmacy #[id number], 168, cm, 12/29/22 15:01:00 EST, [...] on above: Take 2 tablets by mo [facility] three times a day as [...] day(s), # 21 cap(s), Refills(s) 0, Pharmacy: [facility]/pharmacy #[id number], 168, cm, 12/29/22 15:01:00 EST, [...] day(s), # 20 tab(s), Refills(s) 0, Pharmacy: [facility]/pharmacy #[id number], 168, cm, 06/17/22 10:54:00 EDT, [...] day(s), # 28 tab(s), Refills(s) 0, Pharmacy: [facility]/pharmacy #[id number], 167, cm, 05/06/23 15:49:00 EDT, Height/Length Dosing, 82.7, kg, 05/06/23 15:49:00 EDT, Weight Dosing Start Date: 05/06/23 Stop Date: 05/13/23 Status: Ordered Start: 04-02-2023 take 2 capsules by m outh four times daily Bentyl 10 mg Cap 20 mg = 2 cap(s), Oral, QID, # 20 cap(s), Refills(s) 0, Pharmacy: [facility]/pharmacy #[id number], 167, cm, 04/02/23 11:01:00 EST, Height/Length Dosing, 82.7, kg, 04/02/23 11:01:00 EST, Weight Dosing Start Date: 04/02/23 Status: Ordered Start: 06-05-2022 End: 06-15-2022 take 1 capsule by mouth four times daily Bentyl 10 mg Cap 10 mg = 1 cap(s), Oral, QID, X 10 day(s), # 40 cap(s), Refills(s) 0, Pharmacy: [facility]/pharmacy #[id number], 167.2, cm, 05/05/22 13:30:00 EDT, Height/Length Dosing, 84.5, kg, 05/05/22 13:30:00 EDT, Weight Dosing Start Date: 06/05/22 Stop Date: 06/15/22 Status: Ordered Start: 12-20-2020 take 2 capsules by out four times daily Bentyl 10 mg Cap 20 mg = 2 cap(s), Oral, QID, # 20 cap(s), Refills(s) 0, Pharmacy: [facility]/pharmacy #[id number], 167, cm, 12/20/20 9:30:00 EDT, [...] Ordered Start: 06-09-2023 take 1 capsule by [facility] every twelve hours as needed docusate [...] Active Start: 05-29-2022 take 1 capsule by [facility] twice daily doxycycline hyclate 100 mg Cap 100 mg = 1 cap(s), Oral, BID, # 20 cap(s), Refills(s) 0, Pharmacy: [facility]/pharmacy #[id number], 167.2, cm, 05/05/22 13:30:00 EDT, Height/Length Dosing, 84.5, kg, 05/05/22 13:30:00 EDT, Weight Dosing Start Date: 05/29/22 Status: Ordered Start: 03-31-2021 take 1 capsule by [facility] every twelve [...] 10-14-2019 take 1 capsule by [facility] every twelve hours DULoxetine HCl 60 MG 1 capsule Orally Twice a day for 90 days Sep, Active take 1 capsule by [facility] twice daily DULoxetine (CYMBALTA) 30 MG [...] 07/15/2023 Active Start: 09-16-2022 End: 04-11-2023 take 1 tablet by mouth once daily escitalopram oxalate (LEXAPRO) 20 mg tablet Indications: Generalized anxiety disorder , Major depressive disorder, recurrent episode, moderate (HCC) Take 1 tablet by mouth once daily. 90 tablet 1 07/15/2023 Active Start: 12-17-2021 End: 09-12-2022 take 1 tablet by mouth once daily escitalopram oxalate (LEXAPRO) 10 mg tablet Indications: Generalized anxiety disorder , Major depressive disorder, recurrent episode, moderate (HCC) Take 1 tablet by mouth once daily. 90 tablet 0 06/14/2022 09/12/2022 Active Start: 09-09-2021 End: 09-12-2022 take 1 tablet by mouth once daily escitalopram oxalate (LEXAPRO) 5 mg tablet Indications: Generalized anxiety disorder , Major depressive disorder, recurrent episode, moderate (HCC) Take 1 tablet by mouth once daily. Take with 10 mg tablet. 90 tablet 0 06/14/2022 09/12/2022 Active Start: 09-09-2021 take 1 tablet by [facility] once daily escitalopram oxalate (LEXAPRO) 10 mg tablet Indications: Generalized anxiety disorder , Major depressive disorder, recurrent episode, moderate (HCC) Take 1 tablet by mouth once daily. 30 tablet 3 09/09/2021 Active Start: 06-04-2021 End: 07-04-2021 take 1 tablet by mouth once daily escitalopram oxalate (LEXAPRO) 10 mg tablet Indications: Generalized anxiety disorder , Major depressive disorder, recurrent episode, moderate (HCC) Take 1 tablet by mouth once daily. 30 tablet 3 07/04/2021 Active Comment on above: Take 1 tablet [...] mouth once daily. 90 tablet 1 04/02/2021 06/23/2022 Discontinued Comment on above: Take 1 tablet by [facility] once daily. ferrous sulfate 325 mg oral [...] Start: 01-20-2021 take 1 capsule by mo [facility] once daily, then take 1 capsule by mouth twice daily, then take 1 capsule by mouth three times daily gabapentin 300 mg Cap See Instructions, 1 cap(s) Oral daily x 1 day, 1 tab BID x 1 day, then 1 tab TID thereafter., # 90 cap(s), Refills(s) 0, Pharmacy: [facility]/pharmacy #[id number], 167, cm, 01/16/21 13:32:00 EST, Height/Length Dosing, [...] 2 09/15/2022 12/08/2022 Discontinued (Erroneous entry) Start: 09-09-2021 End: 06-08-2022 take 1 tablet by mouth twice daily as needed for anxiety hydrOXYzine HCl (ATARAX) 25 mg tablet Indications: Generalized anxiety disorder , Major depressive disorder, recurrent episode, moderate (HCC) TAKE 1 TABLET BY MOUTH TWICE A DAY NEEDED FOR ANXIETY/INSOMNIA 180 tablet 0 06/08/2022 Active hydrOXYzine HCl 10 MG 1 tablet [...] Daily, # 60 tab(s), Refills(s) 1, Pharmacy: [facility]/pharmacy #[id number], 167, cm, 04/02/23 11:01:00 EST, Height/Length Dosing, 82.7, kg, 04/02/23 11:01:00 EST, Weight Dosing Start Date: 05/03/23 Status: Ordered Start: 03-03-2023 take 1 tablet by [facility] once daily levothyroxine 100 mcg (0.1 mg) Tab 100 mcg = 1 tab(s), Oral, Daily, # 90 tab(s), Refills(s) 0, Pharmacy: [facility], 168, cm, 02/03/23 14:52:00 EST, Height/Length Dosing, 85.5, kg, 02/03/23 14:52:00 EST, Weight Dosing Start Date: 03/03/23 Status: Ordered Start: 10-05-2022 take 1 tablet by [facility] once daily levothyroxine 100 mcg (0.1 mg) Tab 100 mcg = 1 tab(s), Oral, Daily, # 30 tab(s), Refills(s) 1, Pharmacy: [facility]/pharmacy #[id number], 168, cm, 07/29/22 8:44:00 EDT, Height/Length Dosing, 81, kg, 07/29/22 8:44:00 EDT, Weight Dosing Start Date: 10/05/22 Status: Ordered Start: 07-22-2022 take 1 tablet by [facility] once daily levothyroxine 125 mcg (0.125 mg) Tab See Instructions, TAKE 1 TABLET BY MOUTH EVERY DAY, # 30 tab(s), Refills(s) 2, Pharmacy: [facility] [id number], 168, cm, 07/20/22 10:48:00 EDT, Height/Length Dosing, 81.1, kg, 07/20/22 10:48:00 EDT, Weight Dosing Start Date: 07/22/22 Status: Ordered Start: 04-23-2022 take 1 tablet by [facility] once daily levothyroxine 125 mcg (0.125 mg) Tab 125 mcg = 1 tab(s), Oral, Daily, # 90 tab(s), Refills(s) 0, Pharmacy: [facility]/pharmacy #[id number], 167.6, cm, 04/15/21 22:31:00 EST, [...] Status: Ordered take 1 tablet by [facility] once daily levothyroxine (SYNTHROID) 75 MCG tablet [...] Start: 05-12-2023 take 1 capsule by mo [facility] once daily Linzess 290 mcg oral capsule [...] (6 AM). Take 1 capsule by mo [facility] daily at 6 am. liothyronine sodium [...] Daily, # 90 tab(s), Refills(s) 3, Pharmacy: [facility]/pharmacy #[id number], 168, cm, 11/25/22 11:03:00 EDT, Height/Length Dosing, 82.5, kg, 11/25/22 11:03:00 EDT, Weight Dosing Start Date: 11/25/22 Status: Ordered Start: 05-21-2022 take 1 tablet by robinson th once daily liothyronine 5 mcg Tab 5 mcg, Oral, Daily, # 90 tab(s), Refills(s) 1, Pharmacy: [facility]/pharmacy #[id number], 167.2, cm, 05/05/22 13:30:00 EDT, [...] dizziness, # 30 tab(s), Refills(s) 0, Pharmacy: [facility]/pharmacy #[id number], 168, cm, 06/10/22 10:57:00 EDT, Height/Length Dosing, 83.7, kg, 06/10/22 10:57:00 EDT, Weight Dosing Start Date: 06/10/22 Status: Ordered metFORMIN hydrochloride 1000 mg oral tablet (6 sources) Biguanide Start: 03-04-2018 take 1000 mg by mouth twice daily metformin 1,000 mg, Oral, BID, Refills(s) 0, Blood glucose Start Date: 03/04/18 Status: Ordered take 2 tablets by mo [facility] twice daily at mealtime metformin [...] day(s), # 18 tab(s), Refills(s) 0, Pharmacy: [facility]/pharmacy #[id number], 167, cm, 11/04/23 10:46:00 EDT, Height/Length Dosing, 89.3, kg, 11/04/23 10:46:00 EDT, Weight Dosing Start Date: 11/04/23 Stop Date: 11/07/23 Status: Ordered Start: 06-30-2023 End: 06-30-2023 take 1 tablet enteral route every six hours as needed 500 mg, j-tube, Every 6 hours PRN, muscle spasms, Starting on Wed06/30/23 at 0359 Start: 06-02-2023 take 1 tablet by [facility] twice daily Robaxin-750 oral tablet 750 mg [...] 15 tablet 0 11/19/2022 Active Start: 02-02-2022 End: 06-23-2022 take 1 tablet by mouth every six hours as needed methocarbamol (ROBAXIN) 500 mg tablet Take 1 tablet by mouth four times daily as needed. 100 tablet 02/02/2022 06/23/2022 Discontinued Start: 08-01-2021 End: 01-02-2022 take 500-1000 mg [...] day(s), # 21 tab(s), Refills(s) 0, Pharmacy: [facility]/pharmacy #[id number], 168, cm, 12/29/22 15:01:00 EST, Height/Length Dosing, 83.8, kg, 12/29/22 15:01:00 EST, Weight Dosing Start Date: 12/29/22 Stop Date: 01/04/23 Status: Ordered Start: 07-20-2022 End: 07-26-2022 Medrol 4 mg Tab = 1 packet(s ), Oral, As Directed, as directed on package labeling, X 6 day(s), # 21 tab(s), Refills(s) 0, Pharmacy: [facility]/pharmacy #[id number], 168, cm, 07/20/22 10:48:00 EDT, Height/Length [...] labeling, # 21 tab(s), Refills(s) 0, [id number], cm, 04/02/23 11:01:00 EST, [...] Start: 03-20-2023 take 0.5 tablet by m out three times daily at mealtime metoclopramide [...] day(s), # 30 tab(s), Refills(s) 0, Pharmacy: [facility]/pharmacy #[id number], 168, cm, 06/17/22 10:54:00 EDT, [...] mouth daily at bedtime. 90 tablet 1 12/25/2021 06/14/2022 Discontinued Start: 03-24-2021 End: 06-27-2021 take 1 tablet by mouth once daily at bedtime mirtazapine (REMERON) 30 mg tablet Indications: Generalized anxiety disorder TAKE 1 TABLET BY MOUTH DAILY AT BEDTIME 30 tablet 2 06/27/2021 Active Remeron Active Comment on above: Take 1 tablet by robinson th daily at bedtime. TAKE 1 TABLET BY ROBINSON TH DAILY AT BEDTIME [facility] [place] Pres[place] (2 sources) Start: 06-11-19 [facility] [place] Start Date: 06/11/23 Status: Ordered 1 [...] fxn (PEPTAMEN 1.5) 0.068 gram- 1.5 kcal/mL (16 sources) Start: 10-13-2023 nut.tx.impaire d digest fxn (PEPTAMEN 1.5) 0.068 gram- 1.5 kcal/mL 1,100 mL by FEEDING TUBE route once daily. Peptamen 1.5 TF at 50 ml/hr goal rate x 22 hrs. Flush 30 ml q 4 hrs. Pt is to start at 10 ml/hr and adv as tolerated. 93333 mL 5 10/13/2023 Active nutritional drink (Ensure [...] Run for 18 hours, off 6 hours. 59035 mL 3 05/29/2023 06/09/2023 Discontinued Start: 05-29-2023 End: 08-27-2023 nutritional supplements (NUT PIPO 2.0) 0.08 gram-2 kcal/mL liqd 45 mL/hr by FEEDING TUBE route once daily. Run for 18 hours, off 6 hours. 22909 mL 3 05/29/2023 08/27/2023 Active Start: 05-28-2023 End: 08-26-2023 nutritional supplements (NUT PIPO 2.0) 0.08 gram-2 kcal/mL liqd 45 mL/hr by FEEDING TUBE route once daily. Run for 18 hours, off 6 hours. 93341 mL 3 05/28/2023 08/26/2023 Active Comment on above: 45 mL/hr by FEEDING TUBE route once daily. Run for 18 hours, off 6 hours. nystatin [id number] unt/ml oral suspension (1 source) Polyene Antifungal [...] Start: 10-19-2022 take 1 capsule by mo ut once daily omeprazole (PRILOSEC) 20 mg capsule [...] capsule 0 08/22/2021 08/29/2021 Discontinued Start: 01-15-2021 End: 07-15-2021 take 1 capsule by mouth twice daily omeprazole (PRILOSEC) 40 mg capsule Take 1 capsule by mouth twice daily. 60 capsule 01/15/2021 07/15/2021 Discontinued Comment on above: Take 1 capsule [...] Active Start: 09-12-2023 [facility] needed ondansetron orally [...] q6hr, # 12 tab(s), Refills(s) 0, Pharmacy: [facility]/pharmacy #[id number], 168, cm, 06/07/22 10:23:00 EDT, Height/Length Dosing, 83, kg, 06/07/22 10:23:00 EDT, Weight Dosing Start Date: 06/07/22 Status: Ordered Start: 07-27-2021 End: 07-27-2021 ondansetron (ZOFRAN) injecti on 4 mg Start: 12-28-2020 take 1 tablet by robinson th three times daily Zofran ODT 4 mg Tab 4 mg = 1 tab(s), Oral, TID, # 10 tab(s), Refills(s) 0, [id number], cm, 12/20/20 9:30:00 EDT, [...] nausea/vomiting. oxyCODONE hydrochloride 5 mg oral tablet (20 sources) Opioid Agonist Start: 10-07-19 End: 10-12-19 take 1 tablet by mouth every six hours as needed for pain oxyCODONE IR (ROXICODONE) 5 mg immediate release tablet Indications: Post-op pain Take 1 tablet by mouth every 6 hours as needed for pain for up to 5 days. 5 tablet 10/07/2023 10/12/2023 Active Start: 05-14-2023 take 1 capsule by mo [facility] every six hours as needed for pain oxyCODONE 5 mg Cap 5 mg = 1 cap(s), Oral, q6hr, PRN for pain, # 12 cap(s), Refills(s) 0, Pharmacy: [facility]/pharmacy #[id number], 167, cm, 05/12/23 9:37:00 EDT, Height/Length Dosing, 79.8, kg, 05/12/23 9:37:00 EDT, Weight Dosing Start Date: 05/14/23 Status: Ordered Start: 05-09-2023 End: 05-12-2023 take 1 tablet by mouth every six hours oxyCODONE 5 mg Tab 5 mg = 1 tab(s), Oral, q6hr, X 3 day(s), # 10 tab(s), Refills(s) 0, Pharmacy: [facility]/pharmacy #[id number], 167, cm, 05/09/23 11:51:00 EDT, Height/Length Dosing, 82.7, kg, 05/09/23 11:51:00 EDT, Weight Dosing Start Date: 05/09/23 Stop Date: 05/12/23 Status: Ordered Start: 01-30-2022 End: 03-05-2022 oxyCODONE IR (ROXICODONE) 5 mg immediate release tablet Indications: Postoperative pain Take 1 tablet by mouth every 6 hours as needed for pain for up to 5 doses. 15 tablet 02/05/2022 03/05/2022 Discontinued (Course of therapy completed) Start: 03-20-2021 End: 06-24-2021 oxyCODONE IR (ROXICODONE) 5 mg immediate release tablet Indications: Acute post-operative pain Take 1 tablet by mouth every 6 hours as needed for pain for up to 5 doses. 5 tablet 03/20/2021 06/24/2021 Discontinued Comment on above: Take 1 tablet by robinson every 6 hours as needed for pain for up to 5 doses. polyethylene glycol 3350 18400 mg powder for oral solution (20 sources) Osmotic Laxative Start: 06-23-2022 Polyethylene Glycol 3350 (Miralax) 17 gram/dose powder Active 17 GM PO Twice daily 238 May 30, 2023 12:00am mix into 4-8 oz. of any hot/cold/room temp. beverage; use immediately Start: 06-23-2022 End: 06-09-2023 polyethylene glycol 3350 (VT RALAX) 17 gram/dose powder Take 17 g by mouth twice daily. reduced the dose or stop if you get diarrhea and restart after 48 hours to maintain 'at least' once a day bowel movement. Dissolve dose in 4 - 8 ounces of liquid and take as directed. 507 g 1 06/23/2022 06/09/2023 Discontinued Start: 01-30-2022 End: 09-07-2023 polyethylene glycol 3350 (VT RALAX) 17 gram/dose powder Take 17 g by mouth once daily as needed for constipation. 0 06/09/2023 09/07/2023 Active Comment on above: Take 17 g [...] mEq/L infusion predniSONE 20 mg oral tablet (20 sources) Start: 3 End: 3 take 2 [...] Nausea/Vomiting, # 6 EA, Refills(s) 0, Pharmacy: [facility]/pharmacy #[id number], 167, cm, 05/06/23 15:49:00 EDT, [...] TID, # 15 tab(s), Refills(s) 0, [id number] 168, cm, 10/20/22 8:21:00 EDT, Height/Length Dosing, 85.6, kg, 10/20/22 8:21:00 EDT, Weight Dosing Start Date: 10/20/22 Status: Ordered Start: 06-10-2022 take 1 tablet by robinson th every four hours promethazine 12.5 mg oral tablet 12.5 mg = 1 tab(s), Oral, q4hr, # 60 tab(s), Refills(s) 0, Pharmacy: [facility]/pharmacy #[id number], 168, cm, 06/10/22 12:37:00 EDT, Height/Length Dosing, 83.7, kg, 06/10/22 12:37:00 EDT, Weight Dosing Start Date: 06/10/22 Status: Ordered Start: 12-20-2020 take 1 tablet by robinson every six hours as needed for nausea promethazine 25 mg Tab 25 mg = 1 tab(s), Oral, q6hr, PRN as needed for nausea/vomiting, # 12 tab(s), Refills(s) 0, [id number] 167, cm, 12/20/20 9:30:00 EDT, [...] 72 hr scopolamine 0.0139 mg/hr transdermal system (17 sources) Anticholinergic Start: 05-24-19 End: 06-05-19 scopolamine [...] every 3 days as needed. 3 Patch 01/30/2022 03/05/2022 Discontinued (Course of therapy completed) [...] Nausea, # 20 tab(s), Refills(s) 0, Pharmacy: [facility]/pharmacy #[id number], 167, cm, 05/12/23 9:37:00 EDT, Height/Length Dosing, 79.8, kg, 05/12/23 9:37:00 EDT, Weight Dosing Start Date: 05/14/23 Status: Ordered Start: 04-02-2023 End: 04-16-2023 sucralfate 1 g/10 mL Oral Nance sp 10 mL 1 gm = 10 mL, Oral, QIDACHS, X 14 day(s), # 560 mL, Refills(s) 0, Pharmacy: [facility]/pharmacy #[id number], 167, cm, 04/02/23 11:01:00 EST, [...] QID, # 280 mL, Refills(s) 0, Pharmacy: [facility]/pharmacy #[id number], 168, cm, 10/19/22 8:44:00 EDT, [...] times daily. 360 tablet 1 12/25/2020 06/23/2021 Carafate Active Comment on above: Take 1 tablet by robinson th four times daily. tamsulosin hydrochloride 0.4 mg oral capsule (1 source) alpha-Adrenergic Blanka Start: 06-17-2022 take 1 capsule by mouth once daily Flomax 0.4 mg Cap 0.4 mg = 1 cap(s), Oral, Daily, # 10 cap(s), Refills(s) 0, Pharmacy: [facility]/pharmacy #[id number], 168, cm, 06/17/22 10:54:00 EDT, [...] tab(s), Oral, BID, Refills(s) 0 Start Date: 6/14/23 Status: Ordered Start: 10-14-2019 End: 01-02-2022 take [...] pain, # 30 tab(s), Refills(s) 0, Pharmacy: [facility]/pharmacy #[id number], 168, cm, 06/26/22 14:12:00 EDT, [...] for pain for up to 7 days. traZODone hydrochloride 50 mg oral tablet (2 sources) Serotonin Reuptake Inhibitor Start: 11-16-19 take 1 tablet by mouth once daily at bedtime traZODone (DESYREL) 50 mg tablet Take 1 tablet by mouth daily at bedtime. 14 tablet 11/16/2023 Active vitamin b12 0.1 mg oral tablet (1 source) Vitamin B12 Start: 03-18-19 cyanocobalamin (Vitamin B-12) tablet 50 mcg Vitamin D (7 sources) Vitamin D Active Zofran ODT 4 mg Tab-Dis (5 sources) Start: 05-06-2023 take 1 tablet by mouth every eight hours as needed for nausea Zofran ODT 4 mg Tab-Dis 4 mg = 1 tab(s), Oral, q8hr, PRN Nausea/Vomiting, # 12 tab(s), Refills(s) 0, Pharmacy: [facility]/pharmacy #[id number], 167, cm, 05/06/23 15:49:00 EDT, [...] 08-30-2021 bupivacaine-EPINE PHrine PF (MARCAINE-w/EPINE PHRINE) 0.5% -1: injection 10 mL calcium chloride 0.001 meq/ml [...] Comment on above: Take 1 tablet by [facility] once daily. Custom TPN (1 source) End: [...] 01-30-2020 fentaNYL (SUBLIMAZE) injecti on 50 mcg ferric carboxymaltose 750 mg in NaCl 0.9% 250 mL (INJECTAFER) (1 source) Start: 11-16-2023 End: 11-16-2023 750 mg, INTRAVENOUS, Administer over 30 Minutes, ONCE, 1 dose, On Wed11/16/23 at 1500, Dose for patients greater than or equal to 50 kg is 750 mg. Maximum dose is 750 mg EXP: 11/18/2023 1450 RT fluticasone / salmeterol (20 sources) Corticosteroid , beta2-Adrenerg ic Agonist Start: 12-30-2022 take 1 puff(s) by inhalation once daily Advair Diskus 100 mcg-50 mcg inhalation powder See Instructions, 60 blister(s), Refill(s) 0, Take 1 puff 2x daily., [facility]/pharmacy #[id number], 168, cm, 12/29/22 15:01:00 EST, [...] propion/salmeterol (ADVAIR HFA INHALATION) Inhale as instructed. 12/08/2022 Discontinued End: 12-08-2022 fluticasone propion/salmeter ol (ADVAIR HFA INHALATION) Inhale as instructed. 0 [...] mg oral tablet (20 sources) End: 03-10-2023 magnesium gluconate (MAGONATE) 27 mg (500 mg) tab Take 500 mg by mouth once daily. 06/23/2022 Discontinued Comment on above: Take 500 mg by [...] by mouth. Bariatric chewable 2 a day 12/08/2022 Discontinued (Erroneous entry) End: 12-08-2022 take 1 tablet by mouth once daily multivitamin tablet Take 1 tablet by mouth. Bariatric chewable 2 a day 0 12/08/2022 Discontinued (Erroneous entry) take 1 tablet by robinson th once daily multivitamin tablet Take 1 tablet by mouth. Bariatric chewable 2 a day 0 Suspended take 1 tablet by robinson th once daily multivitamin tablet Take 1 tablet [...] weeks. Do not use calcium as a tray filler preparation. If insomnia or vivid dreams [...] weeks. Do not use calcium as a tray filler preparation. If insomnia or vivid dreams [...] weeks. Do not use calcium as a tray filler preparation. If insomnia or vivid dreams [...] weeks. Do not use calcium as a tray filler preparation. If insomnia or vivid dreams [...] weeks. Do not use calcium as a tray filler preparation. If insomnia or vivid dreams [...] kcal/mL liqd TF for PEG-J Rate: 45cc/hr 56548 mL 1 05/26/2023 06/09/2023 Discontinued Start: 05-26-2023 nutritional nance pplements (NUTREN 1.5) 0.07 gram-1.5 kcal/mL liqd TF for PEG-J Rate: 45cc/hr 31015 mL 1 05/26/2023 Active Start: 05-21-2023 End: [...] Daily, # 90 tab(s), Refills(s) 3, Pharmacy: [facility]/pharmacy #[id number], 167, cm, 05/17/23 14:25:00 EDT, Height/Length Dosing, 81, kg, 05/17/23 14:25:00 EDT, Weight Dosing Start Date: 05/31/23 Status: Ordered Start: 05-14-2023 take 1 tablet by robinson th once daily Pantoprazole [address] Tab 40 mg = 1 tab(s), Oral, Daily, # 30 tab(s), Refills(s) 0, Pharmacy: [facility]/pharmacy #[id number], 167, cm, 05/12/23 9:37:00 EDT, [...] prochlorperazine (COMPAZINE) injection 10 mg Start: 01-30-2022 End: 06-23-2022 take 2 tablets by mouth every six hours as needed prochlorperazine (COMPAZINE) 5 mg tablet Take 2 tablets by mouth every 6 hours as needed. 28 tablet 1 01/30/2022 06/23/2022 Discontinued Start: 04-10-2020 End: 02-13-2023 take 1 tablet [...] sodium chloride 0.9% 50 mL IV sennosides, fdc 8.6 mg oral tablet (10 sources) Start: [...] mo uth four times daily as needed. solifenacin succinate [...] Acute and unspecified renal failure (3 sources) Wwpxe-jn-ngpsxfw renal failure; Translations: [Acute kidney failure, unspecified] [...] tract disease (15 sources) Gallstone 07-29-2022 Episodic Chronic obstructive pulmonary [...] unspecified] 10-06-2019 Episodic Deficiency and other anemia (20 sources) Iron deficiency anemia; Translations: [Iron deficiency anemia, unspecified] Onset: 2 08-07-2023 Episodic Diseases of white blood cells (1 [...] 4 Chronic Other aftercare (1 source) Other jail (current) 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; Translations: [OTH MULTIMEDIA AUTHOR CURRENT DRUG THERAPY] Onset: 3 Episodic Other aftercare (2 sources) Surgical follow-up; Translations: [Encounter for surgical aftercare following surgery on the digestive system] 09-18-2022 Episodic Other aftercare (20 sources) Drug therapy finding; Translations: [technician terminal and repeater (current) use of systemic steroids] Onset: 4 10-06-2023 Episodic Other aftercare (1 source) group home (current) use of systemic steroids; Translations: [Current use of steroid medication] Onset: 4 Episodic Other circulatory disease (20 sources) Celiac artery compression syndrome; 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] Onset: 3 11-25-2022 Chronic Other circulatory disease (7 sources) Celiac artery compression syndrome; 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)] Onset: 3 Chronic Other connective tissue disease (9 sources) Neuropathy; [...] pain, unspecified eye] Episodic Other gastrointestinal disorders (14 sources) Abnormal intestinal absorption; Translations: [Intestinal malabsorption, [...] (HCC)] Onset: 4 Chronic Other gastrointestinal disorders (3 sources) Esophageal [...] Translations: [Hirsutism] Episodic Other upper respiratory disease (19 sources) [...] 06-02-2023 Episodic Residual codes; unclassified (1 source) Pain; Translations: [Pain, unspecified] 02-13-2022 Episodic Sprains and strains (13 sources) Acetabular labrum tear; Translations: [Other sprain [...] difficulties; Translations: [Feeding difficulties] Onset: 3 Unclassified (2 sources) refferal Onset: 3 Unclassified [...] food and vomit] Onset: 08-04-2023 08-04-2023 Episodic Calculus of urinary tract (20 sources) [...] placement, follow-up exam] Onset: 05-25-2023 Episodic Other circulatory disease (20 sources) Idiopathic hypotension; Translations: [Idiopathic hypotension] Onset: 08-06-2023 08-06-2023 Episodic Other circulatory disease (1 source) Idiopathic hypotension; Translations: [Idiopathic hypotension] Onset: 08-06-2023 Episodic Other connective tissue disease (1 source) [...] unspecified organism; Translations: [Community acquired pneumonia] Onset: 03-31-2021 Resolved: 03-31-2021 Episodic Residual codes; unclassified (2 sources) Other specified postprocedural states; Translations: [OTH SPECIFIED POSTPROCEDURAL STATES] Onset: 07-15-2021 Episodic Residual codes; unclassified (1 source) Acquired absence of other specified parts of digestive tract; Translations: [History of cholecystectomy] Onset: 10-25-2022 Episodic Residual codes; unclassified (1 source) Other specified health status; Translations: [On total parenteral nutrition (TPN)] Onset: 08-07-2023 Episodic Spondylosis; intervertebral disc disorders; other back problems (20 sources) Chronic low back pain; Translations: [Chronic bilateral low back pain without sciatica] Onset: 10-06-2019 Resolved: 08-07-2023 10-06-2019 Episodic Syncope (20 sources) Syncope and collapse; Translations: [Syncope and collapse] Onset: 06-10-2022 Episodic Unclassified (7 sources) Onset: 01-14-2023 Resolved: 06-22-2023 01-14-2023 Results Test Name Value Interpretation Reference Range Facil ity CNPNon 11-16-2023 CNPN Normal [facility] CNPNon 11-04-2023 CNPN Normal [facility] ED Clinical Summaryon 2023 ED Clinical Summary Normal [facility] ED Note-Physicianon 11-04-19 ED Note-Physician Normal [facility] Comment on above: Result Comment: Elec tronically Signed By: Lonnie Rios PA-C\.br\Date and Time Signed: 11/04/23 14:47 EDT\.br\Electronically Co-Signed By: Ashutosh Albright M.D.\.br\Date and Time Co-Signed: 11/04/23 19:15 EDT ED Patient Education Noteon 11-04-2023 ED Patient Education Note Normal [facility] ED Patient Summaryon 024 ED Patient Summary Normal [facility] Pre-Arrival Noteon Pre-Arrival Note Normal [facility] XR Chest Single Viewon 11-03 XR Chest Single View Normal [facility] SURGICAL PATHOLOGYOrdered By : Bryce Choi on 11-02-2023 Case Report Surgical Pathology Report Case: [id number] Authorizing Provider: Chichi Miller Collected: 11/01/2023 08:17 AM MD Jakob Ordering Location: Gastroenterology Received: 11/01/2023 12:09 PM Pathologist: Bryce Choi MD Specimen: Stomach, Biopsy, gastric biopsy [facility] Work Phone: FINAL DIAGNOSIS [id number] wMlxhbnNpXHNwbHRwZ3 NysdclWYwdKI2iWJ9wc GxhdHRveWVuXGRlZmYw i1bnj946dZBnl3ofMCP XfjzvoNo5lEusD16ve0 K2SbcuP63rcMZwXPX3G TIyNDBccGFwZXJoMTU4 SIVugGDrQ6ipLKSbMG6 hcmdyMTgwMFxtYXJndD J8KDIbnIJqH5BuJJVsA EkjSFHsayz2XfFcHh1k dGVyeTcyMFxwYXJkXHB aJTnqOENuDvPrO6ImnP SlkVyfXemgsXD5UxgpV YCoXVVWfIhhkJxhRH26 G93zXSY7tFKvVF6uagJ wZWNpZmljIGxhbWluYS Qumv2oibhpDDWjWB8xV GFuZCBubyBvdGhlciBk eRNcyw6gvAnjJJNchBG tFTWrw70xMIYscbBbXP 5cBN5lslJan4ktV1kaB GB4vIHeipNbZR7kERfx zUdyz2VdK2AocxUtmDo pcbxuh4WkOR4gp74gBd xwYXJ9 [facility] Work Phone: Gross Description o9mziIVaJHIpyUEMIFN 9UPGhXR7qkCajbIa8mK liAPBgwwU5eKFoNFyvp 3lwDNP6t4bnivPCEwpc FIWaZX5qEHjgVUCuIT0 nZmUwXGRlZmYxXHBhcG VydzEyMjQwXHBhcGVya AI9QJWiLU9zzhfpKAaz VNqtGHSmruE2ALHbyAM qB5GdNCJhYD6dijdhHO J0HKXLCljrIt7cnYAen HtcZjFcZmNoYXJzZXQw TZIqx7zquzFWdaksqIt 2sP3KOCXzA5DoKM7Mb6 tfMTMxkATxROP2CGxkv 0fnQHniVKF0NMDrQFIs EPIiUG4SPsPrVMnlFXK 5PKP4PfF3GGo5UQGRPP EsGBN3Awu2IJTlPUw9C TkgXFxuaCBcXHQgMSBc KZYfQZrtzyP4s6yeEGM arCPpLNW1BNvow2miTO yuAPD4PQZcEjCtKPXsW U0KOzDlEQudFGU7AJZ5 TkD2RPs6PZJOYuWgKkN wXRlxRSXsHPlhOJp2CR g6SDsRGbGcAmi6ReMzE XSuEdJ6JWLbJdJeYRHt MiBcXHNzIDMgXFxmbCB tUU2liNtySEKcPB2ERD XyIGmbBFAbRiNrRN1dH 4ZppLCiqZfwLeyuxDF2 DSz4ytBmCMIjnmBKBkr lVQOlAT2XYYTpFWozFK k1zuIvTVPgEjJcXBCeT 51vr2IFa8QkTM8TVBb5 cnBhciANClxmczIwIFJ bY4UuqiVsEPfkQVJuxz 9egRbgRLZjHBNokVb1l MDvPGZbxXTrGIBog8Ej wKKbGLBsk2B0RQLrb7O 5QIXxZ2wxUJmwhSflAf I8sfMvGvKegFZqYxOro HWzDyFiD97tUVBmlUMw dGyjt5McnQj0fPBwWXm jIY5sIWXsLLSeSXJ1JP 4gXHBhciANClxwYXIgD ItGwr2opdDwyVSsdA7b hDwruzOdWYYrj0EjBNM sZAImH0jpjmVoDL1uKZ YzlC2oXyyyCMMaBQVYn JKitDCpGPGhSudgM8rl iiOmDB5cGETDGQO6QBF 5NVxwYXIgDQpccGFyIA 1NWK5WUICwlDSwfDDds iAxNiwgMjAyNCAyOjE2 IFBNXHBhciANClxzYTM hBNTsrUDXt7KpOYIRIk pjrXdsSgNwtUTxTwJ0Q NHxgFIeNKQ0MW7foBvc DPPiU6RsW4TrsjW4VNY wuvAIQnooDIOgHU8ZLC ZzMjIgDQp9 [facility] Work Phone: Performing Lab t0ghvQFhKSQuuLOpJxS bMVWtHVFgr2oyNVOewE FuZzEwMzNcZnRuYmpcd WOcXGOkHbJqh3cgy184 tZLzr9ybFVRcFcX7qWI dQZUsgLHhI886YTHcHO oxy0qly0VeDXMqeYJmm 0E6ILFKctpfzIw0lHox Q90ai3L7EcntF1ebSFP iLIIsW2EpYH9gPSZrQl w7NSD3GFQ1KSSfWPDtE 7FxQG6dNBBmwIOhMTw8 r0pziBvgXZNwKQT1m6b oJPnzheQuTP6gmu7bsF b9f1vymcOdWYZtYSAyu EZGVARjU8ArqIgbSz5q vYk0bNvfZplvCUE1Ews 3AW7bxv07vmf9pHfgSZ UfdxioEyO2PGacIPGlr stoJEr3XNlbROYppNJ4 NREizDCiS9RnRApjWA0 evqu2OWQ5XJmnBHQwJf C2CACeeWUmJRLyiFzbA Oicn363IQD1RiTxDJ7t A9Gxa8F5rR9weMDkSGQ tnBBvTzUeFJFffw3tdY HsDDyjb5DgVRX0geT6q PFpsTXbLQMdJM94Lcaq c3NrHmdvn0VqE70zkPO 7TAcwh0yfQH9uFoI4cw GhDJuad5iumZ8lBcV8V RccOL7qHI8uTHEycP3r cmxjXHBnYnJkcmhlYWR mxZdborGtUm0cpGbpER G7QPhwR9utgJ2tVkF1P XbkV7xjbC8sKBo3AQqr gDT2UZPqyS8uHC3frbr fy5ntYPblDWsoPLIqoi G6xaBnOCYdpRKkC0Prm V2qUQEvPQ5cmygcl4cb RFX6BOdwOIAkFRN2BnR gIDVlx8Ethxn2SfZli6 XabIXtHTihU18md054T SOqnwOaT8jopCHekxgq tOZbnfbrJOabszY3YMN sXHBsYWluXGYxXGZzMj BcbGFuZzEwMzNcaGlja FxmMVxkYmNoXGYxXGxv M0jmCrOiSzBeTHCGeFL iso6xrVgiQBygqDCijB ZzhWI8gU5tEZFfzwPzl u2sSJUfbVEHhQK6GYkt dpWqW4vrdjsqVZO2JFH tSGD7E1zdIQZVpzViMI UtMFMsiZDpIPDQUEB3E LX5QICsMXZJCMPwEES1 EOQ2ATYqTENfmZNaEVF hclxwYXJkXHBsYWluXG BsQPQrZxIaiDdlqZ7uJ iUqRjXlGYriRK4vFVZh K7htqKMfBSZrLFGfG0w zRlQksI8mtUcfERhrJr JcZnMyMFxsdHJjaCBMY LVlxaF7s2O6WRkshLUu blxmMVxmczIwXGxhbmc tBXRhTShsN9nsNuCpFM OcjHjyJNuql7PlDNUnF WNsZpEdIHpxXDY6y7I9 IFdhbHRlciBILiBIZW5 lyOEppxmnOW8QKjluvY FpblxmMVxmczIyXGxhb tnuLFVgNWjoE1ibRcCd OPXnfLsgFUetw7UxRDQ xXGZzMjJccGFyfQ== [facility] Work Phone: [facility] Work Phone: ANES POSTPROC EVALon 2 024 ANES POSTPROC EVAL Normal [place] ANES PRE-OPon 11-01-2023 ANES PRE-OP Normal [facility] EGD Study observation Narrat iveon 11-01-2023 [facility] Radiology Study observation (narrative) [facility] GLUCOSE, BLOOD (POC)on 10-31 Glucose [Mass/Vol] 76 mg/dL 74 - 99 mg/dL [facility] Comment on above: Location:[facility], [address] [place] [address], [facility] The Accu-Chek Inform II glucose meter has [...] blood gas instrument) in the above situations. [facility] NURSING PROGon 11-01-2023 NURSING PROG Normal [facility] NURSING PROG Normal [facility] SURGICAL PATHOLOGYon 024 CASE REPORT Normal [facility] Comment on above: Order Comment: Geraldo marrero Type: TISSUE SPECIMENOrdering Facility: [facility] Address: [address] [place] [address] Result Comment: Surg ica Pathology Report Case: [id number] Provider: Chichi Miller Collected: 11/01/2023 08:17 CYNDI Robert MDOrdering Location: Gastroenterology Received: 11/01/2023 12:09 PMPathologist: Bryce Choi MDSpecimen: Stomach, Biopsy, gastric biopsy Performed By: #### S ####[facility] LABCLIA [id number] [address] STATES [facility] FINAL DIAGNOSIS Normal [facility] Comment on above: Order Comment: Geraldo marrero Type: TISSUE SPECIMENOrdering Facility: [facility] Address: [address] [place] [address] Result Comment: Stom ach, biopsy:- Oxyntic mucosa with nonspecific lamina propria edema and no other diagnostic alteration.- No morphologic evidence of Helicobacter pylori organisms. Performed By: #### S ####[facility] LABCLIA [id number] [address] [place] FINAL PERFORMING LAB Normal [facility] Comment on above: Order Comment: Geraldo marrero Type: TISSUE SPECIMENOrdering Facility: [facility] Address: [address] [place] [address] Result Comment: Diag nostic interpretation performed at [place] [address] CLIA# [id number] Director: Jaren Agrawal M.D. Performed By: #### S ####[facility] [id number] [address] [facility] GROSS DESCRIPTION Normal [facility] Comment on above: Order Comment: Speci men Type: TISSUE SPECIMENOrdering Facility: [facility] Address: [address] [place] [address] Result Comment: A. Elisabeth dougherty, BiopsyReceived in formalin are multiple pieces of renner, soft tissue aggregating to 1.0 x 0.3 x 0.1 cm. Totally submitted in one cassette.Gross examination performed at [address] November 01, 2023 2:16 PM Performed By: #### S ####[facility] [id number] [address] OF [facility] TPN FORMULA FLOW PRESCRIPTIO Non 11-01-2023 --- PN/EN Formula Flow [facility] #: [id number] Patient Name: ABBEY GARCIA Patient Date of : 1990 Physician: GEORGINA CARRILLO MD Clinician: Diana Wood Date of [...] Lock: Yes Homecare Pharmacy Date: 10/14/2023 Name: [facility] Comments: On lipid days [...] not included)... OTHER LAB Upper GI endoscopyon 024 Upper GI endoscopy [facility] BRIEF OP NOTon 10-15-2023 BRIEF OP NOT Normal [facility] IR CENTRAL CATH PLACEMENTon 10-15-2023 IR CENTRAL CATH PLACEMENT Normal [facility] NURSING PROGon 10-15-2023 NURSING PROG Normal [facility] PT EDon 10-15-2023 PT ED Normal [facility] CNCNPATEDon 10-13-2023 CNCNPATED Normal [facility] CNOVon 10-13-2023 CNOV Normal [facility] NURSING PROGon 10-13-2023 NURSING PROG Normal [facility] Albumin SerPl-mCncon 024 Albumin [Mass/Vol] 3.7 g/dL Low 3.9-4.9 [facility] Comment on above: Order Comment: Speci men Type: BLOOD SPECIMENOrdering Facility: [facility] Address: [address] [place] [address] Performed By: #### 1 751-7, 07812-1, 98777-1, 257-8 ####[facility] PARKIA [id number] [place] [address] [place] Basic metabolic 2000 panelon 10-12-2023 Anion gap [Moles/Vol] 11 mmol/L Normal 8-15 [facility] Comment on above: Order Comment: Speci men Type: BLOOD SPECIMENOrdering Facility: [facility] Address: [address] [place] [address] Performed By: #### 1 751-7, 64960-4, 55655-5, 2570-8 ####[facility] [id number] [place] [address] [place] Calcium [Mass/Vol] 8.4 mg/dL Low 8.5-10.2 [facility] Comment on above: Order Comment: Speci men Type: BLOOD SPECIMENOrdering Facility: [facility] Address: [address] [place] [address] Performed By: #### 1 751-7, 30268-7, 94170-6, 257-8 ####[facility] PARK[facility] [id number] [place] [address] [place] Chloride [Moles/Vol] 108 mmol/L High 98-107 [facility] Comment on above: Order Comment: Speci men Type: BLOOD SPECIMENOrdering Facility: [facility] Address: [address] [place] [address] Performed By: #### 1 751-7, 85059-5, 73613-0, 8 ####[facility] LABORATORYCLIA [id number] [place] [address] [place] CO2 [Moles/Vol] 24 mmol/L Normal 22-30 [facility] Comment on above: Order Comment: Speci men Type: BLOOD SPECIMENOrdering Facility: [facility] Address: [address] [place], [place] [address] Performed By: #### 1 751-7, 16997-7, , 2570-09 ####[facility] LABORATORYCLIA [id number] [place] [address] [place] Creatinine [Mass/Vol] 0.68 mg/dL Normal 0.58-0.96 [facility] Comment on above: Order Comment: Speci men Type: BLOOD SPECIMENOrdering Facility: [facility] Address: [address] [place], [place] [address] Performed By: #### 1 751-7, 61684-2, , 2570-09 ####[facility] [id number] [place], [place] [address] [place] [address] [place] Creatinine and Glomerular filtration rate.predicted panel (S/P/Bld) 117 mL/min/1.73m??? Normal >=60 [facility] l Comment on above: Order Comment: Speci men Type: BLOOD SPECIMENOrdering Facility: [facility] Address: [address] [place], [place] [address] Result Comment: Jessica mated Glomerular Filtration Rate [...] actual GFR. Performed By: #### 1 751-7, 93490-6, 26138-8, 2570-8 ####[facility] LABORATORYCLIA [id number] [place] [address] [place] Glucose [Mass/Vol] 54 mg/dL Low 74-99 [facility] Comment on above: Order Comment: Speci men Type: BLOOD SPECIMENOrdering Facility: [facility] Address: [address] [place] [address] Result Comment: The [place] Diabetes Association (ADA) provides guidance for cutoff [...] Standards of Medical Care in Diabetes 2016, [place] [employer] Association. Diabetes Care. 2016.39(Suppl 1). Performed By: #### 1 751-7, 96071-1, , 2570-09 ####[facility] [id number] [place] [address] [place] Potassium [Moles/Vol] 3.7 mmol/L Normal 3.7-5.1 [facility] Comment on above: Order Comment: Geraldo men Type: BLOOD SPECIMENOrdering Facility: [facility] Address: [address] [place] [address] Performed By: #### 1 751-7, 65172-7, , 2570-09 ####[facility] [id number] [place] [address] [place] Sodium [Moles/Vol] 143 mmol/L Normal 136-144 [facility] Comment on above: Order Comment: Speci men Type: BLOOD SPECIMENOrdering Facility: [facility] Address: [address] [place] [address] Performed By: #### 1 751-7, 83565-2, , 2570-09 ####[facility] [id number] [facility] [place] [address] [place] Urea nitrogen [Mass/Vol] 7 mg/dL Normal 7- [facility] Comment on above: Order Comment: Speci men Type: BLOOD SPECIMENOrdering Facility: [facility] Address: [address] [place] [address] Performed By: #### 1 751-7, 35200-7, 36796-3, 2571-8 ####[facility] P[facility] [id number] [facility] [place] [address] [facility] CASE MANAGEMon 10-12-2023 CASE MANAGEM Normal [facility] CBC panel Auto (Bld)on 10-11 Erythrocyte distribution width (RBC) [Ratio] 15.1 % High 11.5-15.0 [facility] Comment on above: Order Comment: Speci men Type: BLOOD SPECIMENOrdering Facility: [facility] Address: [address] [place] [address] Performed By: #### 5 8410-2 ####[facility] [id number] [place] [address] [place] Hematocrit (Bld) [Volume fraction] 33.8 % Low 36.0-46.0 [facility] Comment on above: Order Comment: Speci men Type: BLOOD SPECIMENOrdering Facility: [facility] Address: [address] [place] [address] Performed By: #### 5 8410-2 ####[facility] P[facility] [id number] [facility] [place] [address] [place] Hemoglobin (Bld) [Mass/Vol] 10.7 g/dL Low 11.5-15.5 [facility] Comment on above: Order Comment: Speci men Type: BLOOD SPECIMENOrdering Facility: [facility] Address: [address] [place] [address] Performed By: #### 5 8410-2 ####[facility] LABORATORYIA [id number] [place] [address] [place] MCH (RBC) [Entitic mass] 27.2 pg Normal 26.0-34.0 [facility] Comment on above: Order Comment: Speci men Type: BLOOD SPECIMENOrdering Facility: [facility] Address: [address] [place] [address] Performed By: #### 5 8410-2 ####[facility] LABORATORYIA [id number] [address] [place] MCHC (RBC) [Mass/Vol] 31.7 g/dL Normal 30.5-36.0 [facility] Comment on above: Order Comment: Speci men Type: BLOOD SPECIMENOrdering Facility: [facility] Address: [address] [place] [address] Performed By: #### 5 8410-2 ####[facility] [id number] [address] [place] MCV (RBC) [Entitic vol] 85.8 fL Normal 80.0-100.0 [facility] Comment on above: Order Comment: Speci men Type: BLOOD SPECIMENOrdering Facility: [facility] Address: [address] [place] [address] Performed By: #### 5 8410-2 ####[facility] [id number] [address] [place] Nucleated RBC (Bld) [#/Vol] 10*3/uL Normal <0.01 [facility] Comment on above: Order Comment: Speci men Type: BLOOD SPECIMENOrdering Facility: [facility] Address: [address] [place] [address] Performed By: #### 5 8410-2 ####[facility] LABORATORYIA [id number] [address] [place] Platelet mean volume (Bld) [Entitic vol] 10.6 fL Normal 9.0-12.7 [facility] Comment on above: Order Comment: Speci men Type: BLOOD SPECIMENOrdering Facility: [facility] Address: [address] [place] [address] Performed By: #### 5 8410-2 ####[facility] LABORATORYCLIA [id number] [place] [address] [facility] [place] Platelets (Bld) [#/Vol] 204 10*3/uL Normal 150-400 [facility] Comment on above: Order Comment: Speci men Type: BLOOD SPECIMENOrdering Facility: [facility] Address: [address] [place] [address] Performed By: #### 5 8410-2 ####[facility] [id number] [place] [address] [place] RBC (Bld) [#/Vol] 3.94 10*6/uL Normal 3.90-5.20 [facility] Comment on above: Order Comment: Speci men Type: BLOOD SPECIMENOrdering Facility: [facility] Address: [address] [place] [address] Performed By: #### 5 8410-2 ####[facility] [id number] [place] [address] [facility] WBC (Bld) [#/Vol] 3.70 10*3/uL Normal 3.70-11.00 [facility] Comment on above: Order Comment: Speci men Type: BLOOD SPECIMENOrdering Facility: [facility] Address: [address] [place] [address] Performed By: #### 5 8410-2 ####[facility] [id number] [place] [address] [facility] [place] CNDSon 10-12-2023 CNDS Normal [facility] CONSULT PROGon 10-12-2023 CONSULT PROG Normal [facility] Magnesium SerPl-mCncon 10-11 Magnesium [Mass/Vol] 2.0 mg/dL Normal 1.7-2.3 [facility] Comment on above: Order Comment: Speci men Type: BLOOD SPECIMENOrdering Facility: [facility] Address: [address] [place] [address] Performed By: #### 1 751-7, 84158-3, , 2570-09 ####[facility] LABORATORYCLIA [id number] [facility] [place] [address] [place] NUTRITIONon 10-12-2023 NUTRITION Normal [facility] Phosphate SerPl-mCncon 10-11 Phosphate [Mass/Vol] 4.3 mg/dL Normal 2.7-4.8 [facility] Comment on above: Order Comment: Speci men Type: BLOOD SPECIMENOrdering Facility: [facility] Address: [address] [place] [address] Performed By: #### 2 777-1 ####[facility]ITALCLIA [id number] [place] [id number] [facility] Tr[facility] Triglyceride [Mass/Vol] 103 mg/dL Normal <150 [facility] Comment on above: Order Comment: Speci men Type: BLOOD SPECIMENOrdering Facility: [facility] Address: [address] [place] [address] Result Comment: <150 mg/dL, Normal 150-199 mg/dL, Borderline high 200-499 mg/dL, High>499 mg/dL, Very highReference:1. National Cholesterol Education Program ATP III Guideline At-A-Glance Quick Desk Reference: National Heart, Lung, and Blood Holcomb. National Institutes of Health. 2001: NIH Publication No. 01-3305. Performed By: #### 1 751-7, 79529-6, , 2570-09 ####[facility] LABORATORYCLIA [id number] [place] [address] [place] [facility] Triglyceride [Mass/Vol]on FASTING TIME 0 hrs Normal [facility] Comment on above: Order Comment: Speci men Type: BLOOD SPECIMENOrdering Facility: [facility] Address: [address] [place] [address] Result Comment: Pt i s on Intralipids and TPN Performed By: #### 1 751-7, 86554-3, , 2570-09 ####[facility] LABORATORYCLIA [id number] [place] [address] [place] Basic metabolic 2000 panelon 10-11-2023 Anion gap [Moles/Vol] 11 mmol/L Normal 8-15 [facility] Comment on above: Order Comment: Speci men Type: BLOOD SPECIMENOrdering Facility: [facility] Address: [address] [place] [address] Performed By: #### 2 4321-2, , 2776-02 ####[facility] [id number] [place] [address] [place] Calcium [Mass/Vol] 8.4 mg/dL Low 8.5-10.2 [facility] Comment on above: Order Comment: Speci men Type: BLOOD SPECIMENOrdering Facility: [facility] Address: [address] [place] [address] Performed By: #### 2 4321-2, , 2776-02 ####[facility] [id number] [place] [address] [place] Chloride [Moles/Vol] 105 mmol/L Normal 98-107 [facility] Comment on above: Order Comment: Speci men Type: BLOOD SPECIMENOrdering Facility: [facility] Address: [address] [place] [address] Performed By: #### 2 4321-2, , 2776-02 ####[facility] [id number] [place] [address] [place] CO2 [Moles/Vol] 27 mmol/L Normal 22-30 [facility] ital Comment on above: Order Comment: Speci men Type: BLOOD SPECIMENOrdering Facility: [facility] Address: [address] [place] [address] Performed By: #### 2 4321-2, , 2776-02 ####[facility] LABORATORYIA [id number] [place] [address] [place] Creatinine [Mass/Vol] 0.81 mg/dL Normal 0.58-0.96 [facility] Comment on above: Order Comment: Geraldo marrero Type: BLOOD SPECIMENOrdering Facility: [facility] Address: [address] [place] [id number] Performed By: #### 2 4321-2, 11401-3, 2776-02 ####[facility] LABORATORYCLIA [id number] [place] [address] [place] Creatinine and Glomerular filtration rate.predicted panel (S/P/Bld) 98 mL/min/1.73m??? Normal >=60 [facility] Comment on above: Order Comment: Geraldo marrero Type: BLOOD SPECIMENOrdering Facility: [facility] Address: [address] [place] [address] Result Comment: Jessica mated Glomerular Filtration Rate [...] Performed By: #### 2 4321-2, , 2776-02 ####[facility] LABORATORYCLIA [id number] [place] [address] [place] Glucose [Mass/Vol] 78 mg/dL Normal 74-99 [facility]spital Comment on above: Order Comment: Geraldo marrero Type: BLOOD SPECIMENOrdering Facility: [facility] Address: [address] [place] [address] Result Comment: The [place] Diabetes Association (ADA) provides guidance for cutoff [...] Standards of Medical Care in Diabetes 2016, [place] [employer] Association. Diabetes Care. 2016.39(Suppl 1). Performed By: #### 2 4321-2, , 2776-02 ####[facility] LABORATORYCLIA [id number] [facility] [place] [address] [place] Potassium [Moles/Vol] 4.2 mmol/L Normal 3.7-5.1 [facility] Comment on above: Order Comment: Speci men Type: BLOOD SPECIMENOrdering Facility: [facility] Address: [address] [place] [address] Performed By: #### 2 4321-2, , 2776-02 ####[facility] LABORATORYIA [id number] [place] [address] [place] Sodium [Moles/Vol] 143 mmol/L Normal 136-144 [facility]spital Comment on above: Order Comment: Speci men Type: BLOOD SPECIMENOrdering Facility: [facility] Address: [address] [place] [address] Performed By: #### 2 4321-2, , 2776-02 ####[facility] LABORATORYIA [id number] [place] [address] [place] Urea nitrogen [Mass/Vol] 6 mg/dL Low 7-21 [facility] Comment on above: Order Comment: Speci men Type: BLOOD SPECIMENOrdering Facility: [facility] Address: [address] [place] [address] Performed By: #### 2 4321-2, , 2776-02 ####[facility] LABORATORYCLIA [id number] [place] [address] [place] CASE MGT INIT ASSESon 2023 CASE MGT INIT ASS Normal [facility] CBC panel Auto (Bld)on 10-10 Erythrocyte distribution width (RBC) [Ratio] 15.0 % Normal 11.5-15.0 [facility] Comment on above: Order Comment: Speci men Type: BLOOD SPECIMENOrdering Facility: [facility] Address: [address] [place] [address] Performed By: #### 5 8410-2 ####[facility] [id number] [address] [place] Hematocrit (Bld) [Volume fraction] 30.8 % Low 36.0-46.0 [facility] Comment on above: Order Comment: Speci men Type: BLOOD SPECIMENOrdering Facility: [facility] Address: [address] [place] [address] Performed By: #### 5 8410-2 ####[facility] [id number] [address] [place] Hemoglobin (Bld) [Mass/Vol] 10.0 g/dL Low 11.5-15.5 [facility] Comment on above: Order Comment: Speci men Type: BLOOD SPECIMENOrdering Facility: [facility] Address: [address] [place] [address] Performed By: #### 5 8410-2 ####[facility] [id number] [address] [place] MCH (RBC) [Entitic mass] 27.5 pg Normal 26.0-34.0 [facility] Comment on above: Order Comment: Speci men Type: BLOOD SPECIMENOrdering Facility: [facility] Address: [address] [place] [address] Performed By: #### 5 8410-2 ####[facility] [id number] [place] [id number] [place] MCHC (RBC) [Mass/Vol] 32.5 g/dL Normal 30.5-36.0 [facility] Comment on above: Order Comment: Speci men Type: BLOOD SPECIMENOrdering Facility: [facility] Address: [address] [place] [address] Performed By: #### 5 8410-2 ####[facility] [id number] [place] [address] [place] MCV (RBC) [Entitic vol] 84.6 fL Normal 80.0-100.0 [facility] Comment on above: Order Comment: Speci men Type: BLOOD SPECIMENOrdering Facility: [facility] Address: [address] [place] [address] Performed By: #### 5 8410-2 ####[facility] LABORATORYCLIA [id number] [place] [address] [place] Nucleated RBC (Bld) [#/Vol] 10*3/uL Normal <0.01 [facility] Comment on above: Order Comment: Speci men Type: BLOOD SPECIMENOrdering Facility: [facility] Address: [address] [place] [address] Performed By: #### 5 8410-2 ####[facility] [id number] [place], [place] [address] [place] [address] [place] Platelet mean volume (Bld) [Entitic vol] 10.5 fL Normal 9.0-12.7 [facility] Comment on above: Order Comment: Speci men Type: BLOOD SPECIMENOrdering Facility: [facility] Address: [address] [place] [address] Performed By: #### 5 8410-2 ####[facility] LABORATORYIA [id number] [place] [id number] [place] Platelets (Bld) [#/Vol] 206 10*3/uL Normal 150-400 [facility] Comment on above: Order Comment: Speci men Type: BLOOD SPECIMENOrdering Facility: [facility] Address: [address] [place] [address] Performed By: #### 5 8410-2 ####[facility]ATORYIA [id number] [place] [id number] [place] RBC (Bld) [#/Vol] 3.64 10*6/uL Low 3.90-5.20 [facility] Comment on above: Order Comment: Speci men Type: BLOOD SPECIMENOrdering Facility: [facility] Address: [address] [place] [address] Performed By: #### 5 8410-2 ####[facility]ATORYIA [id number] [place] [address] [place] WBC (Bld) [#/Vol] 3.36 10*3/uL Low 3.70-11.00 [facility] Comment on above: Order Comment: Speci men Type: BLOOD SPECIMENOrdering Facility: [facility] Address: [address] [place] [address] Performed By: #### 5 8410-2 ####[facility]ATORYIA [id number] [place] [address] [place] CNPNon 10-11-2023 CNPN Normal [facility] CONSULTon 10-11-2023 CONSULT Normal [facility] ECG COMPLETEon 10-11-2023 ECG COMPLETE Normal [facility] Magnesium [facility] 10-10 Magnesium [Mass/Vol] 2.1 mg/dL Normal 1.7-2.3 [facility] Comment on above: Order Comment: Speci men Type: BLOOD SPECIMENOrdering Facility: [facility] Address: [address] [facility] [place] [place] [address] Performed By: #### 2 4321-2, , 2776-02 ####[facility] P[facility] [id number] [place] [address] [facility] [place] NUTRITIONon 10-11-2023 NUTRITION Normal [facility] Phosphate [facility] 10-10 Phosphate [Mass/Vol] 4.3 mg/dL Normal 2.7-4.8 [facility] Comment on above: Order Comment: Speci men Type: BLOOD SPECIMENOrdering Facility: [facility] Address: [address] [place] [address] Performed By: #### 2 4321-2, , 2776-02 ####[facility] LABORATORYIA [id number] [place] [address] [place] XR ABD 2V SUPINE W UPR/DECUB /CTLon 10-11-2023 XR ABD 2V SUPINE W UPR/DECUB/CTL Normal [facility] CBC W Auto Differential pane l (Bld)on 10-10-2023 Basophils (Bld) [#/Vol] 10*3/uL Normal <0.11 [facility] Comment on above: Order Comment: Speci men Type: BLOOD SPECIMENOrdering Facility: [facility] Address: [address] [place] [address] Performed By: #### 5 7021-8 ####[facility] LABORATORYCLIA [id number] [place] [address] [place] Basophils/100 WBC (Bld) 0.4 % Normal [facility] Comment on above: Order Comment: Speci men Type: BLOOD SPECIMENOrdering Facility: [facility] [facility] Address: [address] [place] [address] Performed By: #### 5 7021-8 ####[facility] [id number] [place] [address] [place] Differential cell count method Nom (Bld) Auto Normal [facility] Comment on above: Order Comment: Speci men Type: BLOOD SPECIMENOrdering Facility: [facility] Address: [address] [place] [address] Performed By: #### 5 7021-8 ####[facility] [id number] [place] [address] [place] Eosinophils (Bld) [#/Vol] 10*3/uL Normal <0.46 [facility] Comment on above: Order Comment: Speci men Type: BLOOD SPECIMENOrdering Facility: [facility] Address: [address] [place] [address] Performed By: #### 5 7021-8 ####[facility] [id number] [place] [id number] [place] Eosinophils/100 WBC (Bld) 0.0 % Normal [facility] Comment on above: Order Comment: Speci men Type: BLOOD SPECIMENOrdering Facility: [facility] Address: [address] [place] [address] Performed By: #### 5 7021-8 ####[facility] [id number] [place] [address] [place] Erythrocyte distribution width (RBC) [Ratio] 14.7 % Normal 11.5-15.0 [facility] Comment on above: Order Comment: Speci men Type: BLOOD SPECIMENOrdering Facility: [facility] Address: [address] [place] [address] Performed By: #### 5 7021-8 ####[facility] [id number] [place] [address] [place] Hematocrit (Bld) [Volume fraction] 36.1 % Normal 36.0-46.0 [facility] Comment on above: Order Comment: Speci men Type: BLOOD SPECIMENOrdering Facility: [facility] Address: [address] [place] [address] Performed By: #### 5 7021-8 ####[facility] [id number] [place] [address] [place] Hemoglobin (Bld) [Mass/Vol] 11.4 g/dL Low 11.5-15.5 [facility] Comment on above: Order Comment: Speci men Type: BLOOD SPECIMENOrdering Facility: [facility] Address: [address] [place] [address] Performed By: #### 5 7021-8 ####[facility] [id number] [place] [id number] [place] Immature granulocytes (Bld) [#/Vol] 10*3/uL Normal <0.10 [facility] Comment on above: Order Comment: Speci men Type: BLOOD SPECIMENOrdering Facility: [facility] Address: [address] [place] [address] Performed By: #### 5 7021-8 ####[facility] [id number] [place] [address] [place] Immature granulocytes/100 WBC (Bld) 0.4 % Normal [facility] Comment on above: Order Comment: Speci men Type: BLOOD SPECIMENOrdering Facility: [facility] Address: [address] [place] [address] Performed By: #### 5 7021-8 ####[facility] [id number] [place] [address] [place] Lymphocytes (Bld) [#/Vol] 0.77 10*3/uL Low 1.00-4.00 [facility] Comment on above: Order Comment: Speci men Type: BLOOD SPECIMENOrdering Facility: [facility] Address: [address] [place] [address] Performed By: #### 5 7021-8 ####[facility] [id number] [address] [place] Lymphocytes/100 WBC (Bld) 14.8 % Normal [facility] Comment on above: Order Comment: Speci men Type: BLOOD SPECIMENOrdering Facility: [facility] Address: [address] [place] [address] Performed By: #### 5 7021-8 ####[facility] [id number] [place] [address] [place] MCH (RBC) [Entitic mass] 27.1 pg Normal 26.0-34.0 [facility] Comment on above: Order Comment: Speci men Type: BLOOD SPECIMENOrdering Facility: [facility] Address: [address] [place] [address] Performed By: #### 5 7021-8 ####[facility] [id number] [address] [place] MCHC (RBC) [Mass/Vol] 31.6 g/dL Normal 30.5-36.0 [facility] Comment on above: Order Comment: Speci men Type: BLOOD SPECIMENOrdering Facility: [facility] Address: [address] [place] [address] Performed By: #### 5 7021-8 ####[facility] [id number] [place] [address] [place] MCV (RBC) [Entitic vol] 85.7 fL Normal 80.0-100.0 [facility] Comment on above: Order Comment: Speci men Type: BLOOD SPECIMENOrdering Facility: [facility] Address: [address] [place] [address] Performed By: #### 5 7021-8 ####[facility]ATORYCLIA [id number] [place] [address] [place] Monocytes (Bld) [#/Vol] 0.16 10*3/uL Normal <0.87 [facility] Comment on above: Order Comment: Speci men Type: BLOOD SPECIMENOrdering Facility: [facility] Address: [address] [place] [address] Performed By: #### 5 7021-8 ####[facility] [id number] [place] [address] [place] Monocytes/100 WBC (Bld) 3.1 % Normal [facility] Comment on above: Order Comment: Speci men Type: BLOOD SPECIMENOrdering Facility: [facility] Address: [address] [place] [address] Performed By: #### 5 7021-8 ####[facility] [id number] [place] [address] [place] Neutrophils (Bld) [#/Vol] 4.22 10*3/uL Normal 1.45-7.50 [facility] Comment on above: Order Comment: Speci men Type: BLOOD SPECIMENOrdering Facility: [facility] Address: [address] [place] [address] Performed By: #### 5 7021-8 ####[facility] [id number] [facility] [address] [place] Neutrophils/100 WBC (Bld) 81.3 % Normal [facility] Comment on above: Order Comment: Speci men Type: BLOOD SPECIMENOrdering Facility: [facility] Address: [address] [place] [address] Performed By: #### 5 7021-8 ####[facility] [id number] [place] [address] [place] Nucleated RBC (Bld) [#/Vol] 10*3/uL Normal <0.01 [facility] Comment on above: Order Comment: Speci men Type: BLOOD SPECIMENOrdering Facility: [facility] Address: [address] [place] [address] Performed By: #### 5 7021-8 ####[facility] [id number] [place] [address] [place] Nucleated RBC/100 WBC (Bld) [Ratio] 0.0 /100 WBC Normal [facility] Comment on above: Order Comment: Speci men Type: BLOOD SPECIMENOrdering Facility: [facility] Address: [address] [place] [address] Performed By: #### 5 7021-8 ####[facility] [id number] [place] [address] [place] Platelet mean volume (Bld) [Entitic vol] 10.8 fL Normal 9.0-12.7 [facility] Comment on above: Order Comment: Speci men Type: BLOOD SPECIMENOrdering Facility: [facility] Address: [address] [place] [address] Performed By: #### 5 7021-8 ####[facility] [id number] [place] [address] [place] Platelets (Bld) [#/Vol] 260 10*3/uL Normal 150-400 [facility] Comment on above: Order Comment: Speci men Type: BLOOD SPECIMENOrdering Facility: [facility] Address: [address] [place] [address] Performed By: #### 5 7021-8 ####[facility] [id number] [place] [address] [place] RBC (Bld) [#/Vol] 4.21 10*6/uL Normal 3.90-5.20 [facility] Comment on above: Order Comment: Speci men Type: BLOOD SPECIMENOrdering Facility: [facility] Address: [address] [place] [address] Performed By: #### 5 7021-8 ####[facility] [id number] [place] [address] [place] WBC (Bld) [#/Vol] 5.19 10*3/uL Normal 3.70-11.00 [facility] Comment on above: Order Comment: Speci men Type: BLOOD SPECIMENOrdering Facility: [facility] Address: [address] [place] [address] Performed By: #### 5 7021-8 ####[facility]ATORYCLIA [id number] [place] [address] [place] CT ABD/PEL W IVCONon 024 CT ABD/PEL W IVCON Normal [facility] Comprehensive metabolic 2000 panelon 10-10-2023 Albumin [Mass/Vol] 4.2 g/dL Normal 3.9-4.9 [facility] Comment on above: Order Comment: Speci men Type: BLOOD SPECIMENOrdering Facility: [facility] Address: [address] [place], [place] [address] Performed By: #### 2 4323-8, 3040-3, 26333-6, 6-3 ####[facility] [id number] [place] [address] [place] ALP [Catalytic activity/Vol] 70 U/L Normal 34-123 [facility] Comment on above: Order Comment: Speci men Type: BLOOD SPECIMENOrdering Facility: [facility] Address: [address] [place], [place] [address] Performed By: #### 2 4323-8, 3040-3, 09012-3, 6-3 ####[facility] [id number] [place] [address] [place] ALT [Catalytic activity/Vol] 19 U/L Normal 7-38 [facility] Comment on above: Order Comment: Speci men Type: BLOOD SPECIMENOrdering Facility: [facility] Address: [address] [place], [place] [address] Performed By: #### 2 4323-8, 3040-3, 98741-6, 3015-3 ####[facility]ATORYCLIA [id number] [place] [address] [place] Anion gap [Moles/Vol] 9 mmol/L Normal 8-15 [facility] Comment on above: Order Comment: Speci men Type: BLOOD SPECIMENOrdering Facility: [facility] Address: [address] [place], [place] [address] Performed By: #### 2 4323-8, 3040-3, 61876-0, 3015-3 ####[facility]ATORYCLIA [id number] [place] [address] [place] AST [Catalytic activity/Vol] 33 U/L Normal 13-35 [facility] Comment on above: Order Comment: Speci men Type: BLOOD SPECIMENOrdering Facility: [facility] Address: [address] [place], [place] [address] Performed By: #### 2 4323-8, 3040-3, 76182-9, 3015-3 ####[facility] [id number] [place] [address] [place] Bilirubin [Mass/Vol] 0.2 mg/dL Normal 0.2-1.3 [facility] Comment on above: Order Comment: Speci men Type: BLOOD SPECIMENOrdering Facility: [facility] Address: [facility][note 3] [place] [address] Performed By: #### 2 4323-8, 3040-3, 66690-3, 3015-3 ####[facility]ATORYCLIA [id number] [place] [address] [place] Calcium [Mass/Vol] 8.9 mg/dL Normal 8.5-10.2 [facility] Comment on above: Order Comment: Speci men Type: BLOOD SPECIMENOrdering Facility: [facility] Address: [address] [place], [place] [address] Performed By: #### 2 4323-8, 3040-3, 82530-7, 6-3 ####[facility] [id number] [facility] [place] [address] [place] Chloride [Moles/Vol] 104 mmol/L Normal 98-107 [facility] Comment on above: Order Comment: Speci men Type: BLOOD SPECIMENOrdering Facility: [facility] Address: [address] [place] [address] Performed By: #### 2 4323-8, 3040-3, 46470-7, 3015-3 ####[facility] [id number] [place] [address] [place] CO2 [Moles/Vol] 25 mmol/L Normal 22-30 [facility] Comment on above: Order Comment: Speci men Type: BLOOD SPECIMENOrdering Facility: [facility] Address: [address] [place] [address] Performed By: #### 2 4323-8, 3040-3, 69145-7, 3 ####[facility] [id number] [facility] [place] [address] [place] Creatinine [Mass/Vol] 0.70 mg/dL Normal 0.58-0.96 [facility] Comment on above: Order Comment: Speci men Type: BLOOD SPECIMENOrdering Facility: [facility] Address: [address] [place] [address] Performed By: #### 2 4323-8, 3040-3, , 3 ####[facility] [id number] [facility] [place] [address] [place] Creatinine and Glomerular filtration rate.predicted panel (S/P/Bld) 117 mL/min/1.73m??? Normal >=60 [facility] Comment on above: Order Comment: Speci men Type: BLOOD SPECIMENOrdering Facility: [facility] Address: [address] [place] [address] Result Comment: Jessica mated Glomerular Filtration Rate [...] GFR. Performed By: #### 2 4323-8, 3040-3, 01057-4, 3015-3 ####[facility]ATORYCLIA [id number] [place] [address] [place] Glucose [Mass/Vol] 128 mg/dL High 74-99 [facility] Comment on above: Order Comment: Geraldo marrero Type: BLOOD SPECIMENOrdering Facility: [facility] Address: [address] [place] [id number] Result Comment: The [place] Diabetes Association (ADA) provides guidance for cutoff [...] Standards of Medical Care in Diabetes 2016, [place] [employer] Association. Diabetes Care. 2016.39(Suppl 1). Performed By: #### 2 4323-8, 3040-3, , 3 ####[facility]ORATORYCLIA [id number] [place] [address] [place] Potassium [Moles/Vol] 5.0 mmol/L Normal 3.7-5.1 [facility] Comment on above: Order Comment: Geraldo marrero Type: BLOOD SPECIMENOrdering Facility: [facility] Address: [address] [place] [address] Performed By: #### 2 4323-8, 3040-3, 80332-4, 3015-3 ####[facility]ATORYCLIA [id number] [place] [address] [place] Protein [Mass/Vol] 7.0 g/dL Normal 6.3-8.0 [facility] Comment on above: Order Comment: Speci men Type: BLOOD SPECIMENOrdering Facility: [facility] Address: [address] [place] [address] Performed By: #### 2 4323-8, 3040-3, 81087-8, 3016-3 ####[facility]ORY[facility] [id number] [place] [address] [place] Sodium [Moles/Vol] 138 mmol/L Normal 136-144 [facility] Comment on above: Order Comment: Speci men Type: BLOOD SPECIMENOrdering Facility: [facility] Address: [address] [place] [address] Performed By: #### 2 4323-8, 3040-3, 70204-9, 6-3 ####[facility] [id number] [place] [address] [place] Urea nitrogen [Mass/Vol] 6 mg/dL Low 7-21 [facility] Comment on above: Order Comment: Speci men Type: BLOOD SPECIMENOrdering Facility: [facility] Address: [address] [place] [address] Performed By: #### 2 4323-8, 3040-3, 43608-4, 3016-3 ####[facility] [id number] [place] [address] [place] ED NOTEon 10-10-2023 ED NOTE HNO ID: [id number] Author: NEETA EVANS RN Service: ? Author Type: Registered Nurse Type: ED Notes Filed: 10/10/2023 15:26 Note Text: PEG tube placed on low intermittent suction per order. Normal [facility] ED NOTE Normal [facility] ED NOTE Normal [facility] ED PROV NOTEon 10-10-2023 ED PROV NOTE Normal [facility] HISTORY PHYSICALon HISTORY PHYSICAL Normal [facility] Lipase SerPl-cCncon 10-10-19 24 Lipase [Catalytic activity/Vol] 24 U/L Normal 16-61 [facility] Comment on above: Order Comment: Geraldo marrero Type: BLOOD SPECIMENOrdering Facility: [facility] Address: [address] [place] [address] Performed By: #### 2 4323-8, 3040-3, 42548-6, 3016-3 ####[facility]ATORYCLIA [id number] [place] [address] [facility] [place] Magnesium SerPl-mCncon 10-09 Magnesium [Mass/Vol] 2.2 mg/dL Normal 1.7-2.3 [facility] Comment on above: Order Comment: Geraldo marrero Type: BLOOD SPECIMENOrdering Facility: [facility] Address: [address] [place] [address] Performed By: #### 2 4323-8, 3040-3, 47720-9, 3016-3 ####[facility]ORATORYCLIA [id number] [place] [address] [facility] [place] NURSING PROGon 10-10-2023 NURSING PROG Normal [facility] TSH SerPl-aCncon 10-10-2023 TSH Qn 0.942 m[IU]/L Normal 0.270-4.200 [facility] Comment on above: Order Comment: Geraldo marrero Type: BLOOD SPECIMENOrdering Facility: [facility] Address: [address] [place] [address] Result Comment: If t he patient is , TSH reference range varies by gestational period:First Trimester (weeks 9-12): 0.180-2.990 mIU/LSecond Trimester: 0.110-3.980 mIU/LThird Trimester: 0.480-4.710 mIU/LDonoinessa L, et al. A Practical Approach for the Verifications and Determination of Site- and Trimester-Specific Reference Intervals for Thyroid Function tests in . Thyroid, 2019:29:3:412-420. Claus Graf, et al. 2017 Guidelines of the [place] Thyroid Association for the Diagnosis and Management of Thyroid Disease during and the . Thyroid, 2017:27:3:315-389. Performed By: #### 2 4323-8, 3040-3, 82911-0, 3016-3 ####[facility]ATORYCLIA [id number] [facility] [place] [address] [place] CNPNon 10-08-2023 CNPN Normal [facility] [id number] 10-07-2023 [id number] HNO ID: [id number] Author: SERENA DE LA ROSA RN Service: ? Author Type: Registered Nurse Type: [id number] Filed: 10/07/2023 09:58 Note Text: Tylenol may be taken at home. Ibuprofen may be taken at home. Normal [facility] ANES POSTPROC EVALon 024 ANES POSTPROC EVAL Normal [facility] ANES PRE-OPon 10-07-2023 ANES PRE-OP [facility] BRIEF OP NOTon 10-07-2023 BRIEF OP NOT [facility] HISTORY PHYSICALon 4 HISTORY PHYSICAL Normal [facility] NURSING PROGon 10-07-2023 NURSING PROG [facility] NURSING PROG [facility] OPERATIVE NOon 10-07-2023 OPERATIVE NO [facility] PT EDon 10-07-2023 PT ED [facility] XR CHEST 1V FRONTAL PORTon 0 10-07-2023 XR CHEST 1V FRONTAL PORT Normal [facility] HISTORY PHYSICALon 4 HISTORY PHYSICAL Normal [facility] MR KNEE RIGHT WO IV [...] Triage Noteon 09-22-2023 ED Triage Note Normal [facility] BETA HCG, QUANTITATIVE FOR E Don 09-18-2023 HCG.beta subunit Qn m[IU]/mL Normal <5.0 [facility] Comment on above: Order Comment: Speci men Type: BLOOD SPECIMENOrdering Facility: [facility] Address: [address] [place] [address] Result Comment: Nega tive Performed By: #### H CGED, 02545-6, 3040-3, 92255-1 ####[facility]ATORYCLIA [id number] [facility] [place] [address] [place] CBC W Auto Differential pane l (Bld)on 09-18-2023 Basophils (Bld) [#/Vol] 0.03 10*3/uL Normal <0.11 [facility] Comment on above: Order Comment: Speci men Type: BLOOD SPECIMENOrdering Facility: [facility] Address: [address] [place] [address] Performed By: #### 5 7021-8 ####[facility]ATORYCLIA [id number] [facility].[address] [place] Basophils/100 WBC (Bld) 0.6 % Normal [facility] Comment on above: Order Comment: Speci men Type: BLOOD SPECIMENOrdering Facility: [facility] Address: [address] [place] [address] Performed By: #### 5 7021-8 ####[facility]ATORYCLIA [id number] [place] [id number] [place] Differential cell count method Nom (Bld) Auto Normal [facility] Comment on above: Order Comment: Speci men Type: BLOOD SPECIMENOrdering Facility: [facility] Address: [address] [place] [address] Performed By: #### 5 7021-8 ####[facility]ATORYCLIA [id number] [place] [address] [place] Eosinophils (Bld) [#/Vol] 10*3/uL Normal <0.46 [facility] Comment on above: Order Comment: Speci men Type: BLOOD SPECIMENOrdering Facility: [facility] Address: [address] [place] [address] Performed By: #### 5 7021-8 ####[facility]ORYIA [id number] [place] [address] [place] Eosinophils/100 WBC (Bld) 0.2 % Normal [facility] Comment on above: Order Comment: Speci men Type: BLOOD SPECIMENOrdering Facility: [facility] Address: [address] [place] [address] Performed By: #### 5 7021-8 ####[facility]ORATORYIA [id number] [place] [id number] [place] Erythrocyte distribution width (RBC) [Ratio] 13.5 % Normal 11.5-15.0 [facility] Comment on above: Order Comment: Speci men Type: BLOOD SPECIMENOrdering Facility: [facility] Address: [address] [place] [address] Performed By: #### 5 7021-8 ####[facility]ORATORYIA [id number] [place] [id number] [place] Hematocrit (Bld) [Volume fraction] 37.1 % Normal 36.0-46.0 [facility] Comment on above: Order Comment: Speci men Type: BLOOD SPECIMENOrdering Facility: [facility] Address: [address] [place] [address] Performed By: #### 5 7021-8 ####[facility] [id number] [place] [address] [place] Hemoglobin (Bld) [Mass/Vol] 11.9 g/dL Normal 11.5-15.5 [facility] Comment on above: Order Comment: Speci men Type: BLOOD SPECIMENOrdering Facility: [facility] Address: [address] [place] [address] Performed By: #### 5 7021-8 ####[facility] [id number] [place] [id number] [place] Immature granulocytes (Bld) [#/Vol] 10*3/uL Normal <0.10 [facility] Comment on above: Order Comment: Speci men Type: BLOOD SPECIMENOrdering Facility: [facility] Address: [address] [place] [address] Performed By: #### 5 7021-8 ####[facility] [id number] [place] [id number] [place] Immature granulocytes/100 WBC (Bld) 0.2 % Normal [facility] Comment on above: Order Comment: Speci men Type: BLOOD SPECIMENOrdering Facility: [facility] Address: [address] [place] [address] Performed By: #### 5 7021-8 ####[facility] [id number] [place] [address] [place] Lymphocytes (Bld) [#/Vol] 0.61 10*3/uL Low 1.00-4.00 [facility] Comment on above: Order Comment: Speci men Type: BLOOD SPECIMENOrdering Facility: [facility] Address: [address] [place] [address] Performed By: #### 5 7021-8 ####[facility] LAB[facility]ATORYIA [id number] [place] [address] [place] Lymphocytes/100 WBC (Bld) 11.5 % Normal [facility] Comment on above: Order Comment: Speci men Type: BLOOD SPECIMENOrdering Facility: [facility] Address: [address] [place] [address] Performed By: #### 5 7021-8 ####[facility] [id number] [place], [place] [id number] [place] [address] [place] MCH (RBC) [Entitic mass] 27.4 pg Normal 26.0-34.0 [facility] Comment on above: Order Comment: Speci men Type: BLOOD SPECIMENOrdering Facility: [facility] Address: [address] [place] [address] Performed By: #### 5 7021-8 ####[facility] [id number] [address] [place] MCHC (RBC) [Mass/Vol] 32.1 g/dL Normal 30.5-36.0 [facility] Comment on above: Order Comment: Speci men Type: BLOOD SPECIMENOrdering Facility: [facility] Address: [address] [place] [address] Performed By: #### 5 7021-8 ####[facility] [id number] [address] [place] MCV (RBC) [Entitic vol] 85.5 fL Normal 80.0-100.0 [facility] Comment on above: Order Comment: Speci men Type: BLOOD SPECIMENOrdering Facility: [facility] Address: [address] [place] [address] Performed By: #### 5 7021-8 ####[facility] [id number] [address] [place] Monocytes (Bld) [#/Vol] 0.16 10*3/uL Normal <0.87 [facility] Comment on above: Order Comment: Speci men Type: BLOOD SPECIMENOrdering Facility: [facility] Address: [address] [place] [address] Performed By: #### 5 7021-8 ####[facility]ORATORYCLIA [id number] [place] [address] [place] Monocytes/100 WBC (Bld) 3.0 % Normal [facility] Comment on above: Order Comment: Speci men Type: BLOOD SPECIMENOrdering Facility: [facility] Address: [address] [place] [address] Performed By: #### 5 7021-8 ####[facility]ORATORYCLIA [id number] [place] [address] [place] Neutrophils (Bld) [#/Vol] 4.48 10*3/uL Normal 1.45-7.50 [facility] Comment on above: Order Comment: Speci men Type: BLOOD SPECIMENOrdering Facility: [facility] Address: [address] [place] [address] Performed By: #### 5 7021-8 ####[facility] [id number] [place] [id number] [place] Neutrophils/100 WBC (Bld) 84.5 % Normal [facility] Comment on above: Order Comment: Speci men Type: BLOOD SPECIMENOrdering Facility: [facility] Address: [address] [place] [address] Performed By: #### 5 7021-8 ####[facility] [id number] [place] [address] [place] Nucleated RBC (Bld) [#/Vol] 10*3/uL Normal <0.01 [facility] Comment on above: Order Comment: Speci men Type: BLOOD SPECIMENOrdering Facility: [facility] Address: [address] [place] [address] Performed By: #### 5 7021-8 ####[facility] [id number] [place] [address] [place] Nucleated RBC/100 WBC (Bld) [Ratio] 0.0 /100 WBC Normal [facility] Comment on above: Order Comment: Speci men Type: BLOOD SPECIMENOrdering Facility: [facility] Address: [address] [place] [address] Performed By: #### 5 7021-8 ####[facility] [id number] [place] [address] [place] Platelet mean volume (Bld) [Entitic vol] 10.7 fL Normal 9.0-12.7 [facility] Comment on above: Order Comment: Speci men Type: BLOOD SPECIMENOrdering Facility: [facility] Address: [address] [place] [address] Performed By: #### 5 7021-8 ####[facility] [id number] [place] [address] [place] Platelets (Bld) [#/Vol] 274 10*3/uL Normal 150-400 [facility] Comment on above: Order Comment: Speci men Type: BLOOD SPECIMENOrdering Facility: [facility] Address: [address] [place] [address] Performed By: #### 5 7021-8 ####[facility] [id number] [place] [address] [place] RBC (Bld) [#/Vol] 4.34 10*6/uL Normal 3.90-5.20 [facility] Comment on above: Order Comment: Speci men Type: BLOOD SPECIMENOrdering Facility: [facility] Address: [address] [place] [address] Performed By: #### 5 7021-8 ####[facility] [id number] [place] [address] [place] WBC (Bld) [#/Vol] 5.30 10*3/uL Normal 3.70-11.00 [facility] Comment on above: Order Comment: Speci men Type: BLOOD SPECIMENOrdering Facility: [facility] Address: [address] [place] [address] Performed By: #### 5 7021-8 ####[facility] [id number] [place] [address] [place] CT ABD/PEL W IVCONon 024 CT ABD/PEL W IVCON Normal [facility] Comprehensive metabolic 2000 panelon 09-18-2023 Albumin [Mass/Vol] 4.4 g/dL Normal 3.9-4.9 [facility] Comment on above: Order Comment: Speci men Type: BLOOD SPECIMENOrdering Facility: [facility] Address: [address] [place] [address] Performed By: #### H ELISED, 41377-4, 3040-3, 83058-2 ####[facility]ATORYCLIA [id number] [place] [address] [place] ALP [Catalytic activity/Vol] 66 U/L Normal 34-123 [facility] Comment on above: Order Comment: Speci men Type: BLOOD SPECIMENOrdering Facility: [facility] Address: [address] [place] [address] Performed By: #### H ELISED, 63256-0, 3040-3, 37184-9 ####[facility]ORATORYCLIA [id number] [place] [address] [place] ALT [Catalytic activity/Vol] 38 U/L Normal 7-38 [facility] Comment on above: Order Comment: Speci men Type: BLOOD SPECIMENOrdering Facility: [facility] Address: [address] [place] [address] Performed By: #### H ELISED, 45249-6, 3040-3, 55780-3 ####[facility]ORATORYCLIA [id number] [facility] [place] [address] [place] Anion gap [Moles/Vol] 11 mmol/L Normal 8-15 [facility] Comment on above: Order Comment: Speci men Type: BLOOD SPECIMENOrdering Facility: [facility] Address: [address] [place] [address] Performed By: #### H CGED, 10615-0, 3040-3, 98144-7 ####[facility]ORATORYCLIA [id number] [place] [address] [place] AST [Catalytic activity/Vol] 48 U/L High 13-35 [facility] Comment on above: Order Comment: Speci men Type: BLOOD SPECIMENOrdering Facility: [facility] Address: [address] [place] [address] Performed By: #### H ELISED, 46114-0, 3039-3, ####[facility]ATORYCLIA [id number] [place] [address] [place] Bilirubin [Mass/Vol] 0.3 mg/dL Normal 0.2-1.3 [facility] Comment on above: Order Comment: Speci men Type: BLOOD SPECIMENOrdering Facility: [facility] Address: [address] [place] [address] Performed By: #### H TRACEY, 50686-7, 3, ####[facility]ORATORYCLIA [id number] [place] [address] [place] Calcium [Mass/Vol] 8.8 mg/dL Normal 8.5-10.2 [facility] Comment on above: Order Comment: Speci men Type: BLOOD SPECIMENOrdering Facility: [facility] Address: [address] [place] [address] Performed By: #### H TRACEY, 33220-6, 3, ####[facility]ORATORYCLIA [id number] [place] [address] [place] Chloride [Moles/Vol] 106 mmol/L Normal 98-107 [facility] Comment on above: Order Comment: Speci men Type: BLOOD SPECIMENOrdering Facility: [facility] Address: [address] [place] [address] Performed By: #### H TRACEY, 34270-0, 3, ####[facility]ATORYCLIA [id number] [place] [address] [place] CO2 [Moles/Vol] 20 mmol/L Low 22-30 [facility] ital Comment on above: Order Comment: Speci men Type: BLOOD SPECIMENOrdering Facility: [facility] Address: [address] [place], [place] [address] Performed By: #### H CGED, 14848-2, 3040-3, 03940-3 ####[facility]ORATORYCLIA [id number] [facility] [place] [address] [place] Creatinine [Mass/Vol] 0.70 mg/dL Normal 0.58-0.96 [facility] Comment on above: Order Comment: Geraldo men Type: BLOOD SPECIMENOrdering Facility: [facility] Address: [address] [place] [address] Performed By: #### H CGED, 61743-5, 0-3, ####[facility]ORATORYCLIA [id number] [facility] [place] [address] [place] Creatinine and Glomerular filtration rate.predicted panel (S/P/Bld) 117 mL/min/1.73m??? Normal >=60 [facility] Comment on above: Order Comment: Geraldo [facility] Type: BLOOD SPECIMENOrdering Facility: [facility] Address: [address] [place] [address] Result Comment: Jessica mated Glomerular Filtration Rate [...] actual GFR. Performed By: #### H CGED, 95111-7, 0-3, 83177-2 ####[facility]ORATORYCLIA [id number] [facility] [place] [address] [place] Glucose [Mass/Vol] 118 mg/dL High 74-99 [facility] Comment on above: Order Comment: Geraldo marrero Type: BLOOD SPECIMENOrdering Facility: [facility] Address: [address] [place] [address] Result Comment: The [place] [employer] (ADA) provides guidance for cutoff [...] Standards of Medical Care in Diabetes 2016, [place] [employer]. Diabetes Care. 2016.39(Suppl 1). Performed By: #### H CGED, 02585-9, 3040-3, 61432-3 ####[facility]ORATORYCLIA [id number] [place] [address] [place] Potassium [Moles/Vol] 4.0 mmol/L Normal 3.7-5.1 [facility] Comment on above: Order Comment: Speci men Type: BLOOD SPECIMENOrdering Facility: [facility] Address: [address] [place] [address] Performed By: #### H CGED, 99166-0, 3040-3, ####[facility]ITAL[facility] [id number] [place] [address] [place] Protein [Mass/Vol] 7.1 g/dL Normal 6.3-8.0 [facility] Comment on above: Order Comment: Speci men Type: BLOOD SPECIMENOrdering Facility: [facility] Address: [address] [place] [id number] Performed By: #### H CGED, 16093-7, 3040-3, 30146-3 ####[facility] [id number] [place] [address] [place] Sodium [Moles/Vol] 137 mmol/L Normal 136-144 [facility] Comment on above: Order Comment: Speci men Type: BLOOD SPECIMENOrdering Facility: [facility] Address: [address] [place] [address] Performed By: #### H CGED, 18230-4, 3040-3, 96862-0 ####[facility] [id number] [place] [address] [place] Urea nitrogen [Mass/Vol] 9 mg/dL Normal 7-21 [facility] Comment on above: Order Comment: Speci men Type: BLOOD SPECIMENOrdering Facility: [facility] Address: [address] [place] [address] Performed By: #### H ELISED, 28517-1, 3040-3, 43334-2 ####[facility] [id number] [place] [address] [place] ED NOTEon 09-18-2023 ED NOTE Normal [facility] ED PROV NOTEon 09-18-2023 ED PROV NOTE Normal [facility] l Lipase SerPl-cCncon 09-18-19 24 Lipase [Catalytic activity/Vol] 37 U/L Normal 16-61 [facility] Comment on above: Order Comment: Speci men Type: BLOOD SPECIMENOrdering Facility: [facility] Address: [address] [place], [place] [address] Performed By: #### H ELISED, 71712-7, 3040-3, ####[facility] [id number] [place] [address] [place] Magnesium SerPl-mCncon 09-17 Magnesium [Mass/Vol] 2.1 mg/dL Normal 1.7-2.3 [facility] Comment on above: Order Comment: Speci men Type: BLOOD SPECIMENOrdering Facility: [facility] Address: [address] [place] [address] Performed By: #### H CGED, 16258-1, 3040-3, ####[facility]ATORYIA [id number] [place] [address] [place] Urinalysis complete panel (U )on 09-18-2023 Bilirubin Ql (U) Negative Normal Negative [facility] Comment on above: Order Comment: Speci men Type: URINE SPECIMENOrdering Facility: [facility] Address: [address] [place] [address] Performed By: #### 2 4356-8 ####[facility] [id number] [place] [address] [place] Clarity (Unsp spec) Clear Normal Clear [facility] Comment on above: Order Comment: Speci men Type: URINE SPECIMENOrdering Facility: [facility] Address: [address] [place] [address] Performed By: #### 2 4356-8 ####[facility] [id number] [place] [address] [place] Color (U) Light Yellow Normal yellow [facility] Comment on above: Order Comment: Speci men Type: URINE SPECIMENOrdering Facility: [facility] Address: [address] [place] [address] Performed By: #### 2 4356-8 ####[facility] [id number] [place] [address] [place] Glucose Test strip (U) [Mass/Vol] Negative Normal Trace, Negative [facility] Comment on above: Order Comment: Speci men Type: URINE SPECIMENOrdering Facility: [facility] Address: [address] [place] [address] Performed By: #### 2 4356-8 ####[facility] [id number] [place] [address] [place] Hemoglobin Ql (U) Negative Normal Negative, Trace [facility] Comment on above: Order Comment: Speci men Type: URINE SPECIMENOrdering Facility: [facility] Address: [address] [place] [address] Performed By: #### 2 4356-8 ####[facility] [id number] [place] [address] [place] Ketones Ql (U) Negative Normal Negative, Trace [facility] Comment on above: Order Comment: Speci men Type: URINE SPECIMENOrdering Facility: [facility] Address: [address] [place] [address] Performed By: #### 2 4356-8 ####[facility] [id number] [address] Leukocyte esterase Test strip Ql (U) Negative Normal Negative, 25 [place]/uL [facility] Comment on above: Order Comment: Speci men Type: URINE SPECIMENOrdering Facility: [facility] Address: [address] [place] [address] Performed By: #### 2 4356-8 ####[facility] [id number] [address] [place] Nitrite Ql (U) Negative Normal Negative [facility] Comment on above: Order Comment: Speci men Type: URINE SPECIMENOrdering Facility: [facility] Address: [address] [place] [address] Performed By: #### 2 4356-8 ####[facility] [id number] [place] [address] [place] pH (U) 7.5 [pH] Normal 5.0-8.0 [facility] Comment on above: Order Comment: Speci men Type: URINE SPECIMENOrdering Facility: [facility] Address: [address] [place] [address] Performed By: #### 2 4356-8 ####[facility] [id number] [place] [address] [place] Protein (U) [Mass/Vol] Negative Normal Trace, Negative [facility] Comment on above: Order Comment: Speci men Type: URINE SPECIMENOrdering Facility: [facility] Address: [address] [place] [address] Performed By: #### 2 4356-8 ####[facility] [id number] [place] [address] [place] RBC LM.HPF (Urine sed) [#/Area] 0-3 /HPF Normal 0-3 /HPF [facility] Comment on above: Order Comment: Speci men Type: URINE SPECIMENOrdering Facility: [facility] Address: [address] [place] [address] Performed By: #### 2 4356-8 ####[facility] [id number] [place] [id number] [place] Specific gravity (U) [Rel density] 1.005 Normal 1.005-1.030 [facility] Comment on above: Order Comment: Speci men Type: URINE SPECIMENOrdering Facility: [facility] Address: [address] [place] [address] Performed By: #### 2 4356-8 ####[facility] [id number] [place] [address] [place] Urobilinogen Ql (U) Normal Normal Normal [facility] Comment on above: Order Comment: Speci men Type: URINE SPECIMENOrdering Facility: [facility] Address: [address] [place] [address] Performed By: #### 2 4356-8 ####[facility] [id number] [place] [address] [place] WBC LM.HPF (Urine sed) [#/Area] 0-5 /HPF Normal 0-5 /HPF [facility] Comment on above: Order Comment: Speci men Type: URINE SPECIMENOrdering Facility: [facility] Address: [address] [place] [address] Performed By: #### 2 4356-8 ####[facility] [id number] [place] [address] [place] CBC W Auto Differential pane l (Bld)on 09-17-2023 Basophils (Bld) [#/Vol] 0.03 10*3/uL Normal <0.11 [facility] Comment on above: Order Comment: Speci men Type: BLOOD SPECIMENOrdering Facility: [facility] Address: [address] [place] [address] Performed By: #### 5 7021-8 ####[facility] [id number] [place] [address] [place] Basophils/100 WBC (Bld) 0.5 % Normal [facility] Comment on above: Order Comment: Speci men Type: BLOOD SPECIMENOrdering Facility: [facility] Address: [address] [place] [address] Performed By: #### 5 7021-8 ####[facility]ATORYIA [id number] [facility] [place] [address] [place] Differential cell count method Nom (Bld) Auto Normal [facility] Comment on above: Order Comment: Speci men Type: BLOOD SPECIMENOrdering Facility: [facility] Address: [address] [place] [address] Performed By: #### 5 7021-8 ####[facility] [id number] [place] [address] [place] Eosinophils (Bld) [#/Vol] 10*3/uL Normal <0.46 [facility] Comment on above: Order Comment: Speci men Type: BLOOD SPECIMENOrdering Facility: [facility] Address: [address] [place] [address] Performed By: #### 5 7021-8 ####[facility] [id number] [address] [place] Eosinophils/100 WBC (Bld) 0.2 % Normal [facility] Comment on above: Order Comment: Speci men Type: BLOOD SPECIMENOrdering Facility: [facility] Address: [address] [place] [address] Performed By: #### 5 7021-8 ####[facility]ATORYIA [id number] [place] [address] [place] Erythrocyte distribution width (RBC) [Ratio] 13.3 % Normal 11.5-15.0 [facility] Comment on above: Order Comment: Speci men Type: BLOOD SPECIMENOrdering Facility: [facility] Address: [address] [place] [address] Performed By: #### 5 7021-8 ####[facility]ORYIA [id number] [place], [place] [id number] [place] [address] [place] Hematocrit (Bld) [Volume fraction] 34.2 % Low 36.0-46.0 [facility] Comment on above: Order Comment: Speci men Type: BLOOD SPECIMENOrdering Facility: [facility] Address: [address] [place] [address] Performed By: #### 5 7021-8 ####[facility] LABORATORYCLIA [id number] [place] [address] [place] Hemoglobin (Bld) [Mass/Vol] 11.2 g/dL Low 11.5-15.5 [facility] Comment on above: Order Comment: Speci men Type: BLOOD SPECIMENOrdering Facility: [facility] Address: [address] [place] [address] Performed By: #### 5 7021-8 ####[facility] LABORATORYCLIA [id number] [facility] [place] [address] [place] Immature granulocytes (Bld) [#/Vol] 10*3/uL Normal <0.10 [facility] Comment on above: Order Comment: Speci men Type: BLOOD SPECIMENOrdering Facility: [facility] Address: [address] [place] [address] Performed By: #### 5 7021-8 ####[facility]ORATORYCLIA [id number] [address] [place] Immature granulocytes/100 WBC (Bld) 0.2 % Normal [facility] Comment on above: Order Comment: Speci men Type: BLOOD SPECIMENOrdering Facility: [facility] Address: [address] [place] [address] Performed By: #### 5 7021-8 ####[facility] LABORATORYCLIA [id number] [place] [id number] [place] Lymphocytes (Bld) [#/Vol] 1.50 10*3/uL Normal 1.00-4.00 [facility] Comment on above: Order Comment: Speci men Type: BLOOD SPECIMENOrdering Facility: [facility] Address: [address] [place] [address] Performed By: #### 5 7021-8 ####[facility]ATORYIA [id number] [address] [place] [facility] Lymphocytes/100 WBC (Bld) 25.5 % Normal [facility] Comment on above: Order Comment: Speci men Type: BLOOD SPECIMENOrdering Facility: [facility] Address: [address] [place] [address] Performed By: #### 5 7021-8 ####[facility] [id number] [address] [place] MCH (RBC) [Entitic mass] 27.9 pg Normal 26.0-34.0 [facility] Comment on above: Order Comment: Speci men Type: BLOOD SPECIMENOrdering Facility: [facility] Address: [address] [place] [address] Performed By: #### 5 7021-8 ####[facility] [id number] [address] [place] MCHC (RBC) [Mass/Vol] 32.7 g/dL Normal 30.5-36.0 [facility] Comment on above: Order Comment: Speci men Type: BLOOD SPECIMENOrdering Facility: [facility] Address: [address] [place] [address] Performed By: #### 5 7021-8 ####[facility] [id number] [address] [place] MCV (RBC) [Entitic vol] 85.3 fL Normal 80.0-100.0 [facility] Comment on above: Order Comment: Speci men Type: BLOOD SPECIMENOrdering Facility: [facility] Address: [address] [place] [address] Performed By: #### 5 7021-8 ####[facility] [id number] [address] [place] Monocytes (Bld) [#/Vol] 0.35 10*3/uL Normal <0.87 [facility] Comment on above: Order Comment: Speci men Type: BLOOD SPECIMENOrdering Facility: [facility] Address: [address] [place] [address] Performed By: #### 5 7021-8 ####[facility] [id number] [place] [address] [place] Monocytes/100 WBC (Bld) 5.9 % Normal [facility] Comment on above: Order Comment: Speci men Type: BLOOD SPECIMENOrdering Facility: [facility] Address: [address] [place] [address] Performed By: #### 5 7021-8 ####[facility] LABORATORYCLIA [id number] [place] [address] [place] Neutrophils (Bld) [#/Vol] 3.99 10*3/uL Normal 1.45-7.50 [facility] Comment on above: Order Comment: Speci men Type: BLOOD SPECIMENOrdering Facility: [facility] Address: [address] [place] [address] Performed By: #### 5 7021-8 ####[facility]ORYIA [id number] [place] [address] [place] Neutrophils/100 WBC (Bld) 67.7 % Normal [facility] Comment on above: Order Comment: Speci men Type: BLOOD SPECIMENOrdering Facility: [facility] Address: [address] [place] [address] Performed By: #### 5 7021-8 ####[facility]ATORYIA [id number] [place] [address] [place] Nucleated RBC (Bld) [#/Vol] 10*3/uL Normal <0.01 [facility] Comment on above: Order Comment: Speci men Type: BLOOD SPECIMENOrdering Facility: [facility] Address: [address] [place] [address] Performed By: #### 5 7021-8 ####[facility]ORYIA [id number] [place] [address] [place] Nucleated RBC/100 WBC (Bld) [Ratio] 0.0 /100 WBC Normal [facility] Comment on above: Order Comment: Speci men Type: BLOOD SPECIMENOrdering Facility: [facility] Address: [address] [place] [address] Performed By: #### 5 7021-8 ####[facility]ORATORYCLIA [id number] [place] [address] [place] Platelet mean volume (Bld) [Entitic vol] 10.7 fL Normal 9.0-12.7 [facility] Comment on above: Order Comment: Speci men Type: BLOOD SPECIMENOrdering Facility: [facility] Address: [address] [place] [address] Performed By: #### 5 7021-8 ####[facility] [id number] [place] [address] [place] Platelets (Bld) [#/Vol] 267 10*3/uL Normal 150-400 [facility] Comment on above: Order Comment: Speci men Type: BLOOD SPECIMENOrdering Facility: [facility] Address: [address] [place] [address] Performed By: #### 5 7021-8 ####[facility] [id number] [place] [address] [place] RBC (Bld) [#/Vol] 4.01 10*6/uL Normal 3.90-5.20 [facility] Comment on above: Order Comment: Speci men Type: BLOOD SPECIMENOrdering Facility: [facility] Address: [address] [place] [address] Performed By: #### 5 7021-8 ####[facility] [id number] [place] [address] [place] WBC (Bld) [#/Vol] 5.89 10*3/uL Normal 3.70-11.00 [facility] Comment on above: Order Comment: Speci men Type: BLOOD SPECIMENOrdering Facility: [facility] Address: [address] [place] [address] Performed By: #### 5 7021-8 ####[facility]ORATORYCLIA [id number] [facility] [place] [address] [place] CT ABD/PEL W IVCONon 024 CT ABD/PEL W IVCON Normal [facility] Comprehensive metabolic 2000 panelon 09-17-2023 Albumin [Mass/Vol] 4.1 g/dL Normal 3.9-4.9 [facility] Comment on above: Order Comment: Speci men Type: BLOOD SPECIMENOrdering Facility: [facility] Address: [address] [place] [address] Performed By: #### 1 9123-9, 90979-9 ####[facility]ORATORYCLIA [id number] [facility] [place] [address] [place] ALP [Catalytic activity/Vol] 58 U/L Normal 34-123 [facility] Comment on above: Order Comment: Speci men Type: BLOOD SPECIMENOrdering Facility: [facility] Address: [address] [place] [address] Performed By: #### 1 9123-9, 10295-1 ####[facility]ORYIA [id number] [place] [address] [place] ALT [Catalytic activity/Vol] 36 U/L Normal 7-38 [facility] Comment on above: Order Comment: Speci men Type: BLOOD SPECIMENOrdering Facility: [facility] Address: [address] [place] [address] Performed By: #### 1 9123-9, 36135-5 ####[facility]ORATORYCLIA [id number] [facility] [place] [address] [place] Anion gap [Moles/Vol] 12 mmol/L Normal 8-15 [facility] Comment on above: Order Comment: Speci men Type: BLOOD SPECIMENOrdering Facility: [facility] Address: [address] [place] [address] Performed By: #### 1 9123-9, 16026-3 ####[facility]ORATORYCLIA [id number] [place] [address] [place] AST [Catalytic activity/Vol] 51 U/L High 13-35 [facility] Comment on above: Order Comment: Speci men Type: BLOOD SPECIMENOrdering Facility: [facility] Address: [address] [place] [address] Performed By: #### 1 9123-9, ####[facility]ORATORYCLIA [id number] [place] [address] [place] Bilirubin [Mass/Vol] 0.3 mg/dL Normal 0.2-1.3 [facility] Comment on above: Order Comment: Speci men Type: BLOOD SPECIMENOrdering Facility: [facility] Address: [address] [place] [address] Performed By: #### 1 9123-9, ####[facility] PARKIA [id number] [place] [address] [place] Calcium [Mass/Vol] 8.7 mg/dL Normal 8.5-10.2 [facility] Comment on above: Order Comment: Speci men Type: BLOOD SPECIMENOrdering Facility: [facility] Address: [address] [place] [address] Performed By: #### 1 9123-9, ####[facility]ORYIA [id number] [place] [address] [place] Chloride [Moles/Vol] 105 mmol/L Normal 98-107 [facility] Comment on above: Order Comment: Speci men Type: BLOOD SPECIMENOrdering Facility: [facility] Address: [address] [place] [address] Performed By: #### 1 9123-9, ####[facility]ORATORYCLIA [id number] [place] [address] [place] CO2 [Moles/Vol] 22 mmol/L Normal 22-30 [facility] ital Comment on above: Order Comment: Speci men Type: BLOOD SPECIMENOrdering Facility: [facility] Address: [address] [place] [address] Performed By: #### 1 9123-9, 60454-5 ####[facility]ORATORYCLIA [id number] [place] [address] [place] Creatinine [Mass/Vol] 0.65 mg/dL Normal 0.58-0.96 [facility] Comment on above: Order Comment: Speci men Type: BLOOD SPECIMENOrdering Facility: [facility] Address: [address] [id number] Performed By: #### 1 9123-9, 85494-3 ####[facility]ORYIA [id number] [place] [address] [place] Creatinine and Glomerular filtration rate.predicted panel (S/P/Bld) 119 mL/min/1.73m??? Normal >=60 [facility] Comment on above: Order Comment: Speci men Type: BLOOD SPECIMENOrdering Facility: [facility] Address: [address] [place] [address] Result Comment: Jessica mated Glomerular Filtration Rate [...] actual GFR. Performed By: #### 1 9123-9, 75294-4 ####[facility]ATORYIA [id number] [place] [address] [place] Glucose [Mass/Vol] 92 mg/dL Normal 74-99 [facility] Comment on above: Order Comment: Speci men Type: BLOOD SPECIMENOrdering Facility: [facility] Address: [address] [place] [address] Result Comment: The [place] [employer] (ADA) provides guidance for cutoff [...] Standards of Medical Care in Diabetes 2016, [place] [employer]. Diabetes Care. 2016.39(Suppl 1). Performed By: #### 1 9123-9, ####[facility] PARK[facility] [id number] [place] [address] [place] Potassium [Moles/Vol] 3.6 mmol/L Low 3.7-5.1 [facility] Comment on above: Order Comment: Speci men Type: BLOOD SPECIMENOrdering Facility: [facility] Address: [address] [place] [address] Performed By: #### 1 9123-9, ####[facility] [id number] [place] [address] [place] Protein [Mass/Vol] 6.9 g/dL Normal 6.3-8.0 [facility] Comment on above: Order Comment: Lyssai men Type: BLOOD SPECIMENOrdering Facility: [facility] Address: [address] [place] [address] Performed By: #### 1 9123-9, ####[facility] [id number] [place] [address] [place] Sodium [Moles/Vol] 139 mmol/L Normal 136-144 [facility] Comment on above: Order Comment: Speci men Type: BLOOD SPECIMENOrdering Facility: [facility] Address: [address] [place] [address] Performed By: #### 1 9123-9, ####[facility] [id number] [place] [address] [place] Urea nitrogen [Mass/Vol] 10 mg/dL Normal 7-21 [facility] Comment on above: Order Comment: Speci men Type: BLOOD SPECIMENOrdering Facility: [facility] Address: [address] [place], [place] [address] Performed By: #### 1 9123-9, 68242-9 ####[facility] [id number] [place] [address] [facility] ED NOTEon 09-17-2023 ED NOTE Normal [facility] ED NOTE Normal [facility] ED NOTE HNO ID: [id number] Author: MISHEL HERNANDEZ RN Service: ? Author Type: Registered Nurse Type: ED Notes Filed: 09/17/2023 15:23 Note Text: Report received from DEE Lopez and assumed care of pt Normal [facility] ED NOTE HNO ID: [id number] Author: ANITA HECK RN Service: [facility] Author Type: Registered Nurse Type: ED Notes Filed: 09/17/2023 15:18 Note Text: Report given to DEE Jean Baptiste. Normal [facility] ED NOTE Normal [facility] ED PROV NOTEon 09-17-2023 ED PROV NOTE [facility] Normal [facility] ED Triage Noteon 09-17-2023 ED Triage Note Normal [facility] nicole Magnesium SerPl-mCncon 09-16 Magnesium [Mass/Vol] 1.9 mg/dL Normal 1.7-2.3 [facility] Comment on above: Order Comment: Speci men Type: BLOOD SPECIMENOrdering Facility: [facility] Address: [address] [place], [place] [address] Performed By: #### 1 9123-9, 04774-0 ####[facility]ATORYIA [id number] [place] [address] [facility] Urinalysis complete panel (U )on 09-17-2023 Bilirubin Ql (U) Negative Normal Negative [facility] Comment on above: Order Comment: Speci men Type: URINE SPECIMENOrdering Facility: [facility] Address: [address] [place], [place] [address] Performed By: #### 2 4356-8 ####[facility]ORY[facility] [id number] [place] [address] [place] Clarity (Unsp spec) Clear Normal Clear [facility] Comment on above: Order Comment: Speci men Type: URINE SPECIMENOrdering Facility: [facility] Address: [address] [place] [address] Performed By: #### 2 4356-8 ####[facility] [id number] [place] [address] [place] Color (U) Colorless Normal yellow [facility] Comment on above: Order Comment: Speci men Type: URINE SPECIMENOrdering Facility: [facility] Address: [address] [place] [address] Performed By: #### 2 4356-8 ####[facility] [id number] [place] [address] [place] Epithelial cells LM.HPF (Urine sed) [#/Area] Few Normal [facility] Comment on above: Order Comment: Speci men Type: URINE SPECIMENOrdering Facility: [facility] Address: [address] [place] [address] Performed By: #### 2 4356-8 ####[facility] [id number] [place] [address] [place] Glucose Test strip (U) [Mass/Vol] Negative Normal Trace, Negative [facility] Comment on above: Order Comment: Speci men Type: URINE SPECIMENOrdering Facility: [facility] Address: [address] [place] [address] Performed By: #### 2 4356-8 ####[facility] [id number] [place] [address] [place] Hemoglobin Ql (U) Negative Normal Negative, Trace [facility] Comment on above: Order Comment: Speci men Type: URINE SPECIMENOrdering Facility: [facility] Address: [address] [place] [address] Performed By: #### 2 4356-8 ####[facility] [id number] [place] [address] [place] Ketones Ql (U) Negative Normal Negative, Trace [facility] Comment on above: Order Comment: Speci men Type: URINE SPECIMENOrdering Facility: [facility] Address: [address] [place] [address] Performed By: #### 2 4356-8 ####[facility] [id number] [place] [address] [place] Leukocyte esterase Test strip Ql (U) Negative Normal Negative, 25 Patito/uL [facility] Comment on above: Order Comment: Speci men Type: URINE SPECIMENOrdering Facility: [facility] Address: [address] [place] [address] Performed By: #### 2 4356-8 ####[facility] [id number] [place] [address] [place] Nitrite Ql (U) Negative Normal Negative [facility] Comment on above: Order Comment: Speci men Type: URINE SPECIMENOrdering Facility: [facility] Address: [address] [place] [address] Performed By: #### 2 4356-8 ####[facility] [id number] [place] [address] [place] pH (U) 7.5 [pH] Normal 5.0-8.0 [facility] Comment on above: Order Comment: Speci men Type: URINE SPECIMENOrdering Facility: [facility] Address: [address] [place] [address] Performed By: #### 2 4356-8 ####[facility] [id number] [place] [address] [place] Protein (U) [Mass/Vol] Negative Normal Trace, Negative [facility] Comment on above: Order Comment: Speci men Type: URINE SPECIMENOrdering Facility: [facility] Address: [address] [place] [address] Performed By: #### 2 4356-8 ####[facility] [id number] [place] [address] [place] RBC LM.HPF (Urine sed) [#/Area] 0-3 /HPF Normal 0-3 /HPF [facility] Comment on above: Order Comment: Speci men Type: URINE SPECIMENOrdering Facility: [facility] Address: [address] [place] [address] Performed By: #### 2 4356-8 ####[facility] [id number] [place] [address] [place] Specific gravity (U) [Rel density] 1.032 High 1.005-1.030 [facility] Comment on above: Order Comment: Speci men Type: URINE SPECIMENOrdering Facility: [facility] Address: [address] [place] [address] Performed By: #### 2 4356-8 ####[facility] [id number] [place] [address] [facility] [place] Urobilinogen Ql (U) Normal Normal Normal [facility] Comment on above: Order Comment: Speci men Type: URINE SPECIMENOrdering Facility: [facility] Address: [address] [place] [address] Performed By: #### 2 4356-8 ####[facility] [id number] [place] [id number] [place] WBC LM.HPF (Urine sed) [#/Area] 0-5 /HPF Normal 0-5 /HPF [facility] Comment on above: Order Comment: Speci men Type: URINE SPECIMENOrdering Facility: [facility] Address: [address] [place] [address] Performed By: #### 2 4356-8 ####[facility]ORYIA [id number] [place] [address] [place] BETA HCG, QUANTITATIVE FOR E Don 09-12-2023 HCG.beta subunit Qn m[IU]/mL Normal <5.0 [facility] Comment on above: Order Comment: Speci men Type: BLOOD SPECIMENOrdering Facility: [facility] Address: [address] [place] [address] Result Comment: Nega tive Performed By: #### 1 9123-9, HCGED, 07155-5, 3040-3 ####[facility]ORATORYCLIA [id number] [facility] [place] [address] [place] CBC W Auto Differential pane l (Bld)on 09-12-2023 Basophils (Bld) [#/Vol] 0.04 10*3/uL Normal <0.11 [facility] Comment on above: Order Comment: Speci men Type: BLOOD SPECIMENOrdering Facility: [facility] Address: [address] [place] [address] Performed By: #### 5 7021-8 ####[facility]ORATORYCLIA [id number] [place] [address] [place] Basophils/100 WBC (Bld) 0.8 % Normal [facility] Comment on above: Order Comment: Speci men Type: BLOOD SPECIMENOrdering Facility: [facility] Address: [address] [place] [address] Performed By: #### 5 7021-8 ####[facility] [id number] [place] [address] [place] Differential cell count method Nom (Bld) Auto Normal [facility] Comment on above: Order Comment: Speci men Type: BLOOD SPECIMENOrdering Facility: [facility] Address: [address] [place] [address] Performed By: #### 5 7021-8 ####[facility]ORATORYCLIA [id number] [facility] [place] [address] [place] Eosinophils (Bld) [#/Vol] 10*3/uL Normal <0.46 [facility] Comment on above: Order Comment: Speci men Type: BLOOD SPECIMENOrdering Facility: [facility] Address: [address] [place] [address] Performed By: #### 5 7021-8 ####[facility]ORATORYCLIA [id number] [facility] [place] [address] [place] Eosinophils/100 WBC (Bld) 0.2 % Normal [facility] Comment on above: Order Comment: Speci men Type: BLOOD SPECIMENOrdering Facility: [facility] Address: [address] [place] [address] Performed By: #### 5 7021-8 ####[facility]ORYIA [id number] [place] [address] [place] Erythrocyte distribution width (RBC) [Ratio] 13.2 % Normal 11.5-15.0 [facility] Comment on above: Order Comment: Speci men Type: BLOOD SPECIMENOrdering Facility: [facility] Address: [address] [place] [address] Performed By: #### 5 7021-8 ####[facility]ORYIA [id number] [place] [address] [place] Hematocrit (Bld) [Volume fraction] 31.9 % Low 36.0-46.0 [facility] Comment on above: Order Comment: Speci men Type: BLOOD SPECIMENOrdering Facility: [facility] Address: [address] [place] [address] Performed By: #### 5 7021-8 ####[facility] [id number] [place] [address] [place] Hemoglobin (Bld) [Mass/Vol] 10.4 g/dL Low 11.5-15.5 [facility] Comment on above: Order Comment: Speci men Type: BLOOD SPECIMENOrdering Facility: [facility] Address: [address] [place] [address] Performed By: #### 5 7021-8 ####[facility] [id number] [place] [address] [place] Immature granulocytes (Bld) [#/Vol] 10*3/uL Normal <0.10 [facility] Comment on above: Order Comment: Speci men Type: BLOOD SPECIMENOrdering Facility: [facility] Address: [address] [place] [address] Performed By: #### 5 7021-8 ####[facility] [id number] [place] [address] [place] Immature granulocytes/100 WBC (Bld) 0.4 % Normal [facility] Comment on above: Order Comment: Speci men Type: BLOOD SPECIMENOrdering Facility: [facility] Address: [address] [place] [address] Performed By: #### 5 7021-8 ####[facility]ORATORYCLIA [id number] [place] [address] [place] Lymphocytes (Bld) [#/Vol] 0.97 10*3/uL Low 1.00-4.00 [facility] Comment on above: Order Comment: Speci men Type: BLOOD SPECIMENOrdering Facility: [facility] Address: [address] [place] [address] Performed By: #### 5 7021-8 ####[facility] [id number] [place] [address] [place] Lymphocytes/100 WBC (Bld) 18.8 % Normal [facility] Comment on above: Order Comment: Speci men Type: BLOOD SPECIMENOrdering Facility: [facility] Address: [address] [place] [address] Performed By: #### 5 7021-8 ####[facility] [id number] [place] [id number] [place] MCH (RBC) [Entitic mass] 27.8 pg Normal 26.0-34.0 [facility] Comment on above: Order Comment: Speci men Type: BLOOD SPECIMENOrdering Facility: [facility] Address: [address] [place] [address] Performed By: #### 5 7021-8 ####[facility]ORYIA [id number] [place] [address] [place] MCHC (RBC) [Mass/Vol] 32.6 g/dL Normal 30.5-36.0 [facility] Comment on above: Order Comment: Speci men Type: BLOOD SPECIMENOrdering Facility: [facility] Address: [address] [place] [address] Performed By: #### 5 7021-8 ####[facility]ORATORYCLIA [id number] [place] [address] [place] MCV (RBC) [Entitic vol] 85.3 fL Normal 80.0-100.0 [facility] Comment on above: Order Comment: Speci men Type: BLOOD SPECIMENOrdering Facility: [facility] Address: [address] [place] [address] Performed By: #### 5 7021-8 ####[facility]ATORYCLIA [id number] [place] [address] [place] Monocytes (Bld) [#/Vol] 0.17 10*3/uL Normal <0.87 [facility] Comment on above: Order Comment: Speci men Type: BLOOD SPECIMENOrdering Facility: [facility] Address: [address] [place] [address] Performed By: #### 5 7021-8 ####[facility] [id number] [place] [address] [place] Monocytes/100 WBC (Bld) 3.3 % Normal [facility] Comment on above: Order Comment: Speci men Type: BLOOD SPECIMENOrdering Facility: [facility] Address: [address] [place] [address] Performed By: #### 5 7021-8 ####[facility] [id number] [place] [id number] [place] Neutrophils (Bld) [#/Vol] 3.94 10*3/uL Normal 1.45-7.50 [facility] Comment on above: Order Comment: Speci men Type: BLOOD SPECIMENOrdering Facility: [facility] Address: [address] [place] [address] Performed By: #### 5 7021-8 ####[facility]ORY[facility] [id number] [place] [address] [place] Neutrophils/100 WBC (Bld) 76.5 % Normal [facility] Comment on above: Order Comment: Speci men Type: BLOOD SPECIMENOrdering Facility: [facility] Address: [address] [place] [address] Performed By: #### 5 7021-8 ####[facility] [id number] [facility] [place] [address] [place] Nucleated RBC (Bld) [#/Vol] 10*3/uL Normal <0.01 [facility] Comment on above: Order Comment: Speci men Type: BLOOD SPECIMENOrdering Facility: [facility] Address: [address] [place] [address] Performed By: #### 5 7021-8 ####[facility] [id number] [place] [address] [place] Nucleated RBC/100 WBC (Bld) [Ratio] 0.0 /100 WBC Normal [facility] Comment on above: Order Comment: Speci men Type: BLOOD SPECIMENOrdering Facility: [facility] Address: [address] [place] [address] Performed By: #### 5 7021-8 ####[facility] [id number] [place] [address] [place] Platelet mean volume (Bld) [Entitic vol] 10.0 fL Normal 9.0-12.7 [facility] Comment on above: Order Comment: Speci men Type: BLOOD SPECIMENOrdering Facility: [facility] [facility] Address: [address] [place] [address] Performed By: #### 5 7021-8 ####[facility] [id number] [place] [address] [place] Platelets (Bld) [#/Vol] 225 10*3/uL Normal 150-400 [facility] Comment on above: Order Comment: Speci men Type: BLOOD SPECIMENOrdering Facility: [facility] Address: [address] [place] [address] Performed By: #### 5 7021-8 ####[facility]ORYIA [id number] [place] [address] [place] RBC (Bld) [#/Vol] 3.74 10*6/uL Low 3.90-5.20 [facility] Comment on above: Order Comment: Speci men Type: BLOOD SPECIMENOrdering Facility: [facility] Address: [address] [place] [address] Performed By: #### 5 7021-8 ####[facility]ORATORYCLIA [id number] [facility] [address] [facility] WBC (Bld) [#/Vol] 5.15 10*3/uL Normal 3.70-11.00 [facility] Comment on above: Order Comment: Speci men Type: BLOOD SPECIMENOrdering Facility: [facility] Address: [address] [place] [address] Performed By: #### 5 7021-8 ####[facility]ORATORYCLIA [id number] [place] [address] [facility] Comprehensive metabolic 2000 panelon 09-12-2023 Albumin [Mass/Vol] 4.0 g/dL Normal 3.9-4.9 [facility] Comment on above: Order Comment: Speci men Type: BLOOD SPECIMENOrdering Facility: [facility] Address: [address] [place] [address] Performed By: #### 1 9123-9, HCGED, 28394-0, 3040-3 ####[facility]ORATORYCLIA [id number] [place] [address] [place] ALP [Catalytic activity/Vol] 56 U/L Normal 34-123 [facility] Comment on above: Order Comment: Speci men Type: BLOOD SPECIMENOrdering Facility: [facility] Address: [address] [place] [address] Performed By: #### 1 9123-9, HCGED, 19030-5, 3040-3 ####[facility]ORATORYCLIA [id number] [facility] [place] [address] [facility] ALT [Catalytic activity/Vol] 38 U/L Normal 7-38 [facility] Comment on above: Order Comment: Speci men Type: BLOOD SPECIMENOrdering Facility: [facility] Address: [address] [place] [address] Performed By: #### 1 9123-9, HCGED, 24700-3, 3040-3 ####[facility]ORYIA [id number] [place] [address] [place] Anion gap [Moles/Vol] 10 mmol/L Normal 8-15 [facility] Comment on above: Order Comment: Speci men Type: BLOOD SPECIMENOrdering Facility: [facility] Address: [address] [place] [address] Performed By: #### 1 9123-9, HCGED, 15369-8, 3040-3 ####[facility] [id number] [place] [address] [place] AST [Catalytic activity/Vol] 43 U/L High 13-35 [facility] Comment on above: Order Comment: Speci men Type: BLOOD SPECIMENOrdering Facility: [facility] Address: [address] [place] [address] Performed By: #### 1 9123-9, HCGED, 40529-2, 3040-3 ####[facility] [id number] [place] [address] [place] Bilirubin [Mass/Vol] 0.3 mg/dL Normal 0.2-1.3 [facility] Comment on above: Order Comment: Speci men Type: BLOOD SPECIMENOrdering Facility: [facility] Address: [address] [place] [address] Performed By: #### 1 9123-9, HCGED, 31564-6, 3040-3 ####[facility]ORYIA [id number] [place] [address] [place] Calcium [Mass/Vol] 8.4 mg/dL Low 8.5-10.2 [facility] Comment on above: Order Comment: Speci men Type: BLOOD SPECIMENOrdering Facility: [facility] Address: [address] [place] [address] Performed By: #### 1 9123-9, HCGED, 36201-6, 3040-3 ####[facility]ATORYCLIA [id number] [facility] [place] [address] [place] Chloride [Moles/Vol] 107 mmol/L Normal 98-107 [facility] Comment on above: Order Comment: Speci men Type: BLOOD SPECIMENOrdering Facility: [facility] Address: [address] [place] [address] Performed By: #### 1 9123-9, HCGED, 48897-7, 3040-3 ####[facility]ORATORYCLIA [id number] [facility] [place] [address] [place] CO2 [Moles/Vol] 21 mmol/L Low 22-30 [facility] ital Comment on above: Order Comment: Speci men Type: BLOOD SPECIMENOrdering Facility: [facility] Address: [address] [place] [address] Performed By: #### 1 9123-9, HCGED, 70462-2, 3040-3 ####[facility] [id number] [facility] [place] [address] [place] Creatinine [Mass/Vol] 0.67 mg/dL Normal 0.58-0.96 [facility] Comment on above: Order Comment: Speci men Type: BLOOD SPECIMENOrdering Facility: [facility] Address: [address] [place] [address] Performed By: #### 1 9123-9, HCGED, 95351-6, 3040-3 ####[facility]ORYIA [id number] [facility] [place] [address] [place] Creatinine and Glomerular filtration rate.predicted panel (S/P/Bld) 118 mL/min/1.73m??? Normal >=60 [facility] Comment on above: Order Comment: Speci men Type: BLOOD SPECIMENOrdering Facility: [facility] Address: [address] [place] [address] Result Comment: Jessica mated Glomerular Filtration Rate [...] GFR. Performed By: #### 1 9123-9, HCGED, 27739-8, 3040-3 ####[facility]ORATORYCLIA [id number] [place] [address] [place] Glucose [Mass/Vol] 95 mg/dL Normal 74-99 [facility] Comment on above: Order Comment: Speci elida Type: BLOOD SPECIMENOrdering Facility: [facility] Address: [address] [place] [address] Result Comment: The [place] [employer] (ADA) provides guidance for cutoff [...] Standards of Medical Care in Diabetes 2016, [place] [employer]. Diabetes Care. 2016.39(Suppl 1). Performed By: #### 1 9123-9, HCGED, 86462-5, 3040-3 ####[facility]ORATORYCLIA [id number] [place] [address] [place] Potassium [Moles/Vol] 3.9 mmol/L Normal 3.7-5.1 [facility] Comment on above: Order Comment: Geraldo marrero Type: BLOOD SPECIMENOrdering Facility: [facility] Address: [address] [place] [address] Performed By: #### 1 9123-9, HCGED, 92160-5, 3040-3 ####[facility]ORATORYCLIA [id number] [facility] [place] [address] [place] Protein [Mass/Vol] 6.4 g/dL Normal 6.3-8.0 [facility] Comment on above: Order Comment: Speci men Type: BLOOD SPECIMENOrdering Facility: [facility] Address: [address] [place] [address] Performed By: #### 1 9123-9, HCGED, 05705-7, 3040-3 ####[facility]ATORYIA [id number] [place] [address] [facility] Sodium [Moles/Vol] 138 mmol/L Normal 136-144 [facility] Comment on above: Order Comment: Speci men Type: BLOOD SPECIMENOrdering Facility: [facility] Address: [address] [place] [address] Performed By: #### 1 9123-9, HCGED, 10661-2, 3040-3 ####[facility] [id number] [place] [address] [facility] Urea nitrogen [Mass/Vol] 11 mg/dL Normal 7-21 [facility] Comment on above: Order Comment: Speci men Type: BLOOD SPECIMENOrdering Facility: [facility] Address: [address] [place] [address] Performed By: #### 1 9123-9, HCGED, 52550-8, 3040-3 ####[facility]ATORYIA [id number] [place] [address] [facility] ED NOTEon 09-12-2023 ED NOTE Normal [facility] ED NOTE Normal [facility] ED NOTE HNO ID: [id number] Author: HARMONY CHAVEZ RN Service: ? Author Type: Registered Nurse Type: ED Notes Filed: 09/12/2023 16:23 Note Text: Per LIP, ok to give popsicle. Pt provided with popsicle. Pt tolerated PO well. Normal [facility] ED NOTE HNO ID: [id number] Author: AVTAR LIN RN Service: ? Author Type: Registered Nurse Type: ED Notes Filed: 09/12/2023 10:14 Note Text: Patient c/o mid abd pain. Patient was here yesterday . Patient states she was vomiting all night. Normal [facility] ED PROV NOTEon 09-12-2023 ED PROV NOTE Normal [facility] l Lipase SerPl-cCncon 09-12-19 24 Lipase [Catalytic activity/Vol] 40 U/L Normal 16-61 [facility] Comment on above: Order Comment: Speci men Type: BLOOD SPECIMENOrdering Facility: [facility] Address: [address] [place] [address] Performed By: #### 1 9123-9, HCGED, 98321-5, 3040-3 ####[facility]ORATORYCLIA [id number] [facility] [place] [address] [place] Magnesium SerPl-mCncon 09-11 Magnesium [Mass/Vol] 1.9 mg/dL Normal 1.7-2.3 [facility] Comment on above: Order Comment: Speci men Type: BLOOD SPECIMENOrdering Facility: [facility] Address: [address] [place] [address] Performed By: #### 1 9123-9, HCGED, 12944-5, 3040-3 ####[facility]ORATORYCLIA [id number] [place] [address] [place] CBC W Auto Differential pane l (Bld)on 09-11-2023 Basophils (Bld) [#/Vol] 10*3/uL Normal <0.11 [facility] Comment on above: Order Comment: Speci men Type: BLOOD SPECIMENOrdering Facility: [facility] Address: [address] [place] [address] Performed By: #### 5 7021-8 ####[facility] [id number] [facility] [id number] [place] Basophils/100 WBC (Bld) 0.4 % Normal [facility] Comment on above: Order Comment: Speci men Type: BLOOD SPECIMENOrdering Facility: [facility] Address: [address] [place] [address] Performed By: #### 5 7021-8 ####[facility]PITALCLIA [id number] [facility] [place] [address] [place] Differential cell count method Nom (Bld) Auto Normal [facility] Comment on above: Order Comment: Speci men Type: BLOOD SPECIMENOrdering Facility: [facility] Address: [address] [place] [address] Performed By: #### 5 7021-8 ####[facility]ORATORYCLIA [id number] [facility] [place] [address] [place] Eosinophils (Bld) [#/Vol] 10*3/uL Normal <0.46 [facility] Comment on above: Order Comment: Speci men Type: BLOOD SPECIMENOrdering Facility: [facility] Address: [address] [place] [address] Performed By: #### 5 7021-8 ####[facility] [id number] [place] [address] [place] Eosinophils/100 WBC (Bld) 0.4 % Normal [facility] Comment on above: Order Comment: Speci men Type: BLOOD SPECIMENOrdering Facility: [facility] Address: [address] [place] [address] Performed By: #### 5 7021-8 ####[facility] [id number] [address] [place] Erythrocyte distribution width (RBC) [Ratio] 13.0 % Normal 11.5-15.0 [facility] Comment on above: Order Comment: Speci men Type: BLOOD SPECIMENOrdering Facility: [facility] Address: [address] [place] [address] Performed By: #### 5 7021-8 ####[facility]ATORYIA [id number] [address] [place] Hematocrit (Bld) [Volume fraction] 34.1 % Low 36.0-46.0 [facility] Comment on above: Order Comment: Speci men Type: BLOOD SPECIMENOrdering Facility: [facility] Address: [address] [place] [address] Performed By: #### 5 7021-8 ####[facility] LABORATORYCLIA [id number] [facility] [address] [place] Hemoglobin (Bld) [Mass/Vol] 10.9 g/dL Low 11.5-15.5 [facility] Comment on above: Order Comment: Speci men Type: BLOOD SPECIMENOrdering Facility: [facility] Address: [address] [place] [address] Performed By: #### 5 7021-8 ####[facility]ORATORYCLIA [id number] [facility] [place] [address] [place] Immature granulocytes (Bld) [#/Vol] 10*3/uL Normal <0.10 [facility] Comment on above: Order Comment: Speci men Type: BLOOD SPECIMENOrdering Facility: [facility] Address: [address] [place] [address] Performed By: #### 5 7021-8 ####[facility]ORATORYCLIA [id number] [place] [address] [place] Immature granulocytes/100 WBC (Bld) 0.2 % Normal [facility] Comment on above: Order Comment: Speci men Type: BLOOD SPECIMENOrdering Facility: [facility] Address: [address] [place] [address] Performed By: #### 5 7021-8 ####[facility] LABORATORYCLIA [id number] [place] [id number] [place] Lymphocytes (Bld) [#/Vol] 0.74 10*3/uL Low 1.00-4.00 [facility] Comment on above: Order Comment: Speci men Type: BLOOD SPECIMENOrdering Facility: [facility] Address: [address] [place] [address] Performed By: #### 5 7021-8 ####[facility] LABORATORYCLIA [id number] [facility] [place] [address] [place] Lymphocytes/100 WBC (Bld) 14.6 % Normal [facility] Comment on above: Order Comment: Speci men Type: BLOOD SPECIMENOrdering Facility: [facility] Address: [address] [place] [address] Performed By: #### 5 7021-8 ####[facility] [id number] [address] MCH (RBC) [Entitic mass] 27.7 pg Normal 26.0-34.0 [facility] Comment on above: Order Comment: Speci men Type: BLOOD SPECIMENOrdering Facility: [facility] Address: [address] [place] [address] Performed By: #### 5 7021-8 ####[facility] [id number] [address] MCHC (RBC) [Mass/Vol] 32.0 g/dL Normal 30.5-36.0 [facility] Comment on above: Order Comment: Speci men Type: BLOOD SPECIMENOrdering Facility: [facility] Address: [address] [place] [address] Performed By: #### 5 7021-8 ####[facility] [id number] [address] MCV (RBC) [Entitic vol] 86.8 fL Normal 80.0-100.0 [facility] Comment on above: Order Comment: Speci men Type: BLOOD SPECIMENOrdering Facility: [facility] Address: [address] [place] [address] Performed By: #### 5 7021-8 ####[facility] [id number] [address] [place] Monocytes (Bld) [#/Vol] 0.18 10*3/uL Normal <0.87 [facility] Comment on above: Order Comment: Speci men Type: BLOOD SPECIMENOrdering Facility: [facility] Address: [address] [place] [address] Performed By: #### 5 7021-8 ####[facility] LAB[facility]ATORYIA [id number] [place] [address] [place] Monocytes/100 WBC (Bld) 3.6 % Normal [facility] Comment on above: Order Comment: Speci men Type: BLOOD SPECIMENOrdering Facility: [facility] Address: [address] [place] [address] Performed By: #### 5 7021-8 ####[facility]ORATORYCLIA [id number] [place] [address] [place] Neutrophils (Bld) [#/Vol] 4.09 10*3/uL Normal 1.45-7.50 [facility] Comment on above: Order Comment: Speci men Type: BLOOD SPECIMENOrdering Facility: [facility] Address: [address] [place] [address] Performed By: #### 5 7021-8 ####[facility]ORATORYCLIA [id number] [place] [address] [place] Neutrophils/100 WBC (Bld) 80.8 % Normal [facility] Comment on above: Order Comment: Speci men Type: BLOOD SPECIMENOrdering Facility: [facility] Address: [address] [place] [address] Performed By: #### 5 7021-8 ####[facility] [id number] [place] [address] [place] Nucleated RBC (Bld) [#/Vol] 0.02 10*3/uL High <0.01 [facility] Comment on above: Order Comment: Speci men Type: BLOOD SPECIMENOrdering Facility: [facility] Address: [address] [place] [address] Performed By: #### 5 7021-8 ####[facility]ORATORYCLIA [id number] [place] [address] [place] Nucleated RBC/100 WBC (Bld) [Ratio] 0.4 /100 WBC Normal [facility] Comment on above: Order Comment: Speci men Type: BLOOD SPECIMENOrdering Facility: [facility] Address: [address] [place] [address] Performed By: #### 5 7021-8 ####[facility]ATORYIA [id number] [facility] [place] [address] [place] Platelet mean volume (Bld) [Entitic vol] 10.7 fL Normal 9.0-12.7 [facility] Comment on above: Order Comment: Speci men Type: BLOOD SPECIMENOrdering Facility: [facility] Address: [address] [place] [address] Performed By: #### 5 7021-8 ####[facility] [id number] [place] [address] [place] Platelets (Bld) [#/Vol] 265 10*3/uL Normal 150-400 [facility] Comment on above: Order Comment: Speci men Type: BLOOD SPECIMENOrdering Facility: [facility] Address: [address] [place] [address] Performed By: #### 5 7021-8 ####[facility] [id number] [place] [address] [place] RBC (Bld) [#/Vol] 3.93 10*6/uL Normal 3.90-5.20 [facility] Comment on above: Order Comment: Speci men Type: BLOOD SPECIMENOrdering Facility: [facility] Address: [address] [place] [address] Performed By: #### 5 7021-8 ####[facility] [id number] [place] [address] [place] WBC (Bld) [#/Vol] 5.06 10*3/uL Normal 3.70-11.00 [facility] Comment on above: Order Comment: Speci men Type: BLOOD SPECIMENOrdering Facility: [facility] Address: [address] [place] [address] Performed By: #### 5 7021-8 ####[facility] [id number] [facility] [place] [address] [place] CT ABD/PEL W IVCONon 09-10-[address] ABD/PEL W IVCON Normal [facility] Comprehensive metabolic 2000 panelon 07-27-2024 Albumin [Mass/Vol] 3.8 g/dL Low 3.9-4.9 [facility] Comment on above: Order Comment: Speci men Type: BLOOD SPECIMENOrdering Facility: [facility] Address: [address] [place] [address] Performed By: #### 2 4323-8, 3040-3, ####[facility]ORATORYCLIA [id number] [place] [address] [place] ALP [Catalytic activity/Vol] 57 U/L Normal 34-123 [facility] Comment on above: Order Comment: Speci men Type: BLOOD SPECIMENOrdering Facility: [facility] Address: [address] [place] [address] Performed By: #### 2 4323-8, 0-3, ####[facility]ORATORYCLIA [id number] [place] [address] [place] ALT [Catalytic activity/Vol] 38 U/L Normal 7-38 [facility] Comment on above: Order Comment: Speci men Type: BLOOD SPECIMENOrdering Facility: [facility] Address: [address] [place] [address] Performed By: #### 2 4323-8, 0-3, ####[facility] [id number] [place] [address] [place] Anion gap [Moles/Vol] 12 mmol/L Normal 8-15 [facility] Comment on above: Order Comment: Speci men Type: BLOOD SPECIMENOrdering Facility: [facility] Address: [address] [place] [address] Performed By: #### 2 4323-8, 3040-3, ####[facility]ATORYIA [id number] [place] [address] [place] AST [Catalytic activity/Vol] 50 U/L High 13-35 [facility] Comment on above: Order Comment: Speci men Type: BLOOD SPECIMENOrdering Facility: [facility] Address: [address] [place] [address] Performed By: #### 2 4323-8, 3039-3, ####[facility] [id number] [place] [address] [place] Bilirubin [Mass/Vol] 0.3 mg/dL Normal 0.2-1.3 [facility] Comment on above: Order Comment: Speci men Type: BLOOD SPECIMENOrdering Facility: [facility] Address: [address] [place] [address] Performed By: #### 2 4323-8, 3, ####[facility] [id number] [place] [address] [place] Calcium [Mass/Vol] 8.4 mg/dL Low 8.5-10.2 [facility] Comment on above: Order Comment: Speci men Type: BLOOD SPECIMENOrdering Facility: [facility] Address: [address] [place] [address] Performed By: #### 2 4323-8, 3, ####[facility] [id number] [place] [address] [place] Chloride [Moles/Vol] 104 mmol/L Normal 98-107 [facility] Comment on above: Order Comment: Speci men Type: BLOOD SPECIMENOrdering Facility: [facility] Address: [address] [place] [address] Performed By: #### 2 4323-8, 3, ####[facility] [id number] [place] [address] [place] CO2 [Moles/Vol] 20 mmol/L Low 22-30 [facility] Comment on above: Order Comment: Speci men Type: BLOOD SPECIMENOrdering Facility: [facility] Address: [address] [place] [address] Performed By: #### 2 4323-8, 3, ####[facility]ORATORYCLIA [id number] [facility] [place] [address] [place] Creatinine [Mass/Vol] 0.76 mg/dL Normal 0.58-0.96 [facility] Comment on above: Order Comment: [facility] Type: BLOOD SPECIMENOrdering Facility: [facility] Address: [address] [place] [address] Performed By: #### 2 4323-8, 0-3, ####[facility]ORATORYCLIA [id number] [facility] [place] [address] [place] Creatinine and Glomerular filtration rate.predicted panel (S/P/Bld) 106 mL/min/1.73m??? Normal >=60 [facility] Comment on above: Order Comment: [facility] Type: BLOOD SPECIMENOrdering Facility: [facility] Address: [address] [place] [address] Result Comment: Jessica mated Glomerular Filtration Rate [...] GFR. Performed By: #### 2 4323-8, 3039-3, ####[facility] LABORATORYIA [id number] [facility] [place] [address] [place] Glucose [Mass/Vol] 97 mg/dL Normal 74-99 [facility] on above: Order Comment: [facility] Type: BLOOD SPECIMENOrdering Facility: [facility] Address: [address] [place] [address] Result Comment: The [place] [employer] (ADA) provides guidance for cutoff [...] Standards of Medical Care in Diabetes 2016, [place] [employer]. Diabetes Care. 2016.39(Suppl 1). Performed By: #### 2 4323-8, 0-3, ####[facility] LABORATORYCLIA [id number] [place] [address] [place] Potassium [Moles/Vol] 4.0 mmol/L Normal 3.7-5.1 [facility] Comment on above: Order Comment: Speci men Type: BLOOD SPECIMENOrdering Facility: [facility] Address: [address] [place] [address] Performed By: #### 2 4323-8, 3039-3, ####[facility] PARKIA [id number] [place] [address] [place] Protein [Mass/Vol] 6.3 g/dL Normal 6.3-8.0 [facility] Comment on above: Order Comment: Speci men Type: BLOOD SPECIMENOrdering Facility: [facility] Address: [address] [place] [address] Performed By: #### 2 4323-8, 3039-3, ####[facility] [id number] [place] [address] [place] Sodium [Moles/Vol] 136 mmol/L Normal 136-144 [facility] Comment on above: Order Comment: Speci men Type: BLOOD SPECIMENOrdering Facility: [facility] Address: [address] [place] [address] Performed By: #### 2 4323-8, 3, ####[facility] [id number] [place] [address] [place] Urea nitrogen [Mass/Vol] 13 mg/dL Normal 7-21 [facility] Comment on above: Order Comment: Speci men Type: BLOOD SPECIMENOrdering Facility: [facility] Address: [address] [place], [place] [address] Performed By: #### 2 4323-8, 3040-3, ####[facility]ORATORYCLIA [id number] [place] [address] [place] ED NOTEon 09-11-2023 ED NOTE Normal [facility] ED NOTE HNO ID: [id number] Author: AVTAR LIN, RN Service: ? Author Type: Registered Nurse Type: ED Notes Filed: 09/11/2023 11:47 Note Text: Normal [facility] ED NOTE Normal [facility] ED PROV NOTEon 09-11-2023 ED PROV NOTE Normal [facility] l Lipase SerPl-cCncon 09-11-19 24 Lipase [Catalytic activity/Vol] 47 U/L Normal 16-61 [facility] Comment on above: Order Comment: Speci men Type: BLOOD SPECIMENOrdering Facility: [facility] Address: [address] [place], [place] [id number] Performed By: #### 2 4323-8, 3039-3, ####[facility]ORATORYCLIA [id number] [place] [address] [place] Magnesium SerPl-mCncon 09-10 Magnesium [Mass/Vol] 1.8 mg/dL Normal 1.7-2.3 [facility] Comment on above: Order Comment: Speci men Type: BLOOD SPECIMENOrdering Facility: [facility] Address: [address] [place], [place] [address] Performed By: #### 2 4323-8, 3040-3, ####[facility]ORATORYCLIA [id number] [place] [address] [place] CNPNon 09-09-2023 CNPN Normal [facility] CNNURSEon 08-30-2023 CNNURSE Normal [facility] CNNURSEon 08-26-2023 CNNURSE Normal [facility] EGD Study observation Narrat iveon 08-26-2023 A31 Gastrointestinal Endoscopy Patient Name: Abbey Garcia Procedure Date: 08/26/2023 3:47 PM Date of : 1990 Admit Type: Outpatient Age: 33 Room: [place] [address] Gender: Female Note Status: Finalized Attending MD: Britt Cross MD, [id number] Procedure: Small bowel enteroscopy Indications: Heartburn Providers: [...] was characterized by healthy appearing mucosa. The flrszdmy-ut-yftrqoz limb was examined. The examined jejunum was [...] loss: none. Procedure Code(s): --- Professional --- 14388, Esophagogastroduode noscopy, flexible, transoral; diagnostic, including collection of specimen(s) by brushing or washing, when performed (separate procedure) CPT copyright 2020 [employer]. All rights reserved. The codes documented in this report are preliminary and upon medical biller coder review may be revised to meet [...] Note Initiated On: 08/26/2023 3:47 PM [facility] Radiology Study observation (narrative) [facility] NURSING PROGon 08-26-2023 NURSING PROG Normal [facility] NURSING PROG Normal [facility] NURSING PROG Normal [facility] NURSING PROG Normal [facility] Small bowel enteroscopyon Small bowel enteroscopy Normal [facility] CNPNon 08-23-2023 CNPN Normal [facility] Activated partial thrombopla stin time (aPTT) in platelet poor plasma by coagulation aOrdered By: Claus Obrien on 08-21-2023 aPTT Coag (PPP) [Time] 28.4 s 25.1-36.5 [facility] Comment on above: A hematocrit value g reater than 55% may lead to inaccurate results in coagulation testing. Patients having hematocrit values >55% require a special collection tube for coagulation studies. Please contact the laboratory at [phone] for redraw instructions. Alanine aminotransferase [En zymatic activity/volume] in Serum or PlasmaOrdered By: Claus Obrien on 08-21-2023 ALT [Catalytic activity/Vol] 22 U/L Normal 7-52 [facility] Comment on above: Performed By: #### A CORY, [facility] #### [address] Albumin [Mass/volume] in Ser um or Plasma by Bromocresol green (BCG) dye binding methoOrdered By: Claus Obrien on 08-21-2023 Albumin BCG dye [Mass/Vol] 3.9 g/dL 3.5-5.7 [facility] Alkaline phosphatase [Enzyma tic activity/volume] in Serum or PlasmaOrdered By: Claus Obrien on 08-21-2023 ALP [Catalytic activity/Vol] 51 U/L Normal 34-104 [facility] Comment on above: Performed By: #### A CORY [facility], U #### [address] Aspartate aminotransferase [ Enzymatic activity/volume] in Serum or PlasmaOrdered By: Claus Obrien on 08-21-2023 AST [Catalytic activity/Vol] 35 U/L Normal 13-39 [facility] Comment on above: Performed By: #### A CORY, [facility] #### [address] Automated basophil %Ordered By: Claus Obrien on 08-21-2023 Basophils/100 WBC (Bld) 1.0 % Normal . [facility] Comment on above: Performed By: #### H EPATIC, MG, LIPASE, CMP, CBC #### [address] Automated basophil countOrde red By: Claus Obrien on 08-21-2023 Basophils (Bld) [#/Vol] 0.0 10*3/uL Normal 0.0-0.2 [facility] Comment on above: Result Comment: PERF ORMED BY: [place] [address] PATHOLOGIST G[employer] LE[employer] ROLLER BAUTISTA BAKER M.D. Performed By: #### H EPATIC, MG, LIPASE, CMP, CBC #### [address] Automated blood monocyte cou ntOrdered By: Claus Obrien on 08-21-2023 Monocytes (Bld) [#/Vol] 0.3 10*3/uL Normal 0.0-0.8 [facility] Comment on above: Performed By: #### H EPATIC, MG, LIPASE, CMP, CBC #### [address] Automated eosinophil %Ordere d By: Claus Obrien on 08-21-2023 Eosinophils/100 WBC (Bld) 2.4 % Normal . [facility] Comment on above: Performed By: #### H EPATIC, MG, LIPASE, CMP, CBC #### [address] Automated eosinophil countOr dered By: Claus Obrien on 08-21-2023 Eosinophils (Bld) [#/Vol] 0.1 10*3/uL Normal 0.0-0.45 [facility] Comment on above: Performed By: #### H EPATIC, MG, LIPASE, CMP, CBC #### [address] Automated monocyte %Ordered By: Claus Obrien on 08-21-2023 Monocytes/100 WBC (Bld) 8.4 % Normal . [facility] Comment on above: Performed By: #### H EPATIC, MG, LIPASE, CMP, CBC #### [address] Automated neutrophil %Ordere d By: Claus Obrien on 08-21-2023 Neutrophils/100 WBC (Bld) 58.0 % Normal . [facility] Comment on above: Performed By: #### H EPATIC, MG, LIPASE, CMP, CBC #### [address] Basic Metabolic Panelon 07-0 Creatinine Clr Calc Pharmacy 115.16 Normal [facility] Comment on above: Performed By: #### A CORY, [facility] [place] #### [address] GFR/1.73 sq M.predicted MDRD (S/P/Bld) [Vol rate/Area] mL/min/{1.73_m2} Normal [facility] Comment on above: Performed By: #### A CORY, [facility] #### [address] Bilirubin Test strip Ql (U)O rdered By: Claus Obrien on 08-21-2023 Bilirubin Ql (U) Negative Negative [facility] Bilirubin.direct [Mass/volum e] in Serum or PlasmaOrdered By: Claus Obrien on 08-21-2023 Bilirubin.direct [Mass/Vol] 0.10 mg/dL 0.03-0.18 [facility] Bilirubin.total [Mass/volume ] in Serum or PlasmaOrdered By: Claus Obrien on 08-21-2023 Bilirubin [Mass/Vol] 0.3 mg/dL Normal 0.3-1.0 [facility] Comment on above: Performed By: #### A CORY, [facility] #### [address] abdomen pelvis w conon CT abdomen pelvis w con [facility] [place] [address] CT Scan Report Signed Patient: Abbey Garcia MR#: [id number] : 1990 Acct:[id number] Age/Sex: 33 / F ADM Date: 08/21/23 Loc: ER Room: Type: [facility] ER Attending Dr: Copies to: Claus Obrien [...] Maricruz Hutchinson M.D.08/21/2023 12:03 PM Dictation Location: [place] [address] Transcribed By: SULEMA 08/21/23 1203 Dictated By: Maricruz Hutchinson MD 08/21/23 1157 Signed By: 08/21/23 1203 Normal [facility] Calcium [Mass/volume] in Ser um or PlasmaOrdered By: Claus Obrien on 08-21-2023 Calcium [Mass/Vol] 8.4 mg/dL Low 8.6-10.3 [facility] Comment on above: Performed By: #### A CORY, [place], U #### [address] Carbon dioxide, total [Moles /volume] in Serum or PlasmaOrdered By: Claus Obrien on 08-21-2023 CO2 [Moles/Vol] 21.7 mmol/L Normal 21.0-31.0 [facility] Comment on above: Performed By: #### A DDONUAJESSICA, BRITTANIECG, CUU #### [facility] [address] Chloride [Moles/volume] in S elder or PlasmaOrdered By: Claus Obrien on 08-21-2023 Chloride [Moles/Vol] 109 mmol/L High 98-107 [facility] Comment on above: Performed By: #### A NISHONUAJOSESITO LOPEZ, CUU #### [address] Choriogonadotropin.beta subu nit [Units/volume] in Serum or PlasmaOrdered By: Claus Obrien on 08-21-2023 HCG.beta subunit Qn Negative [facility] Color of Urine by AutoOrdere d By: Claus Obrien on 08-21-2023 Color (U) Colorless Normal Yellow [facility] Comment on above: Order Comment: Name Collection Type:: Clean-Voided Midstream Performed By: #### A CORY, ALIYAHG, CUU #### [address] Complete Blood Count Auto Di ffon 08-21-2023 Mean Corpuscular HGB Conc 33.6 g/dL Normal 32.0-35.0 [facility] Comment on above: Performed By: #### H EPATIC, MG, LIPASE, CMP, CBC #### [facility] [address] [place] [address] [place] Monocytes/100 WBC (Bld) 14.35 % Normal 0.00-20.00 [facility] Comment on above: Performed By: #### H EPATIC, MG, LIPASE, CMP, CBC #### [facility] [address] NRBC% 0.1 /100{WBC} Normal 0-0.5 [facility] Comment on above: Performed By: #### H EPATIC, MG, LIPASE, CMP, CBC #### [address] Creatinine [Mass/volume] in Serum or PlasmaOrdered By: Claus Obrien on 08-21-2023 Creatinine [Mass/Vol] 0.73 mg/dL Normal 0.60-1.20 [facility] Comment on above: Performed By: #### A DDONUAPLUS, UHCG, CUU #### [address] Erythrocyte distribution wid th [Ratio] by Automated countOrdered By: Claus Obrien on 08-21-2023 Erythrocyte distribution width (RBC) [Ratio] 13.7 % Normal 11.9-15.3 [facility] Comment on above: Performed By: #### H EPATIC, MG, LIPASE, CMP, CBC #### [address] Erythrocytes [#/volume] in B lood by Automated countOrdered By: Claus Obrien on 08-21-2023 RBC (Bld) [#/Vol] 3.89 10*6/uL Normal 3.60-5.00 [facility] Comment on above: Performed By: #### H EPATIC, MG, LIPASE, CMP, CBC #### [address] Glucose [Mass/volume] in Ser um or PlasmaOrdered By: Claus Obrien on 08-21-2023 Glucose [Mass/Vol] 83 mg/dL Normal 70-100 [facility] Comment on above: ADA recommended refe rence rangeRandom Glucose Reference Range is dependent on time and content of last meal. Glucose of more than 200 mg/dL in a nonstressed, ambulatory subject supports the diagnosis of Diabetes Mellitus. Result Comment: [place] om Glucose Reference Range is dependent on time and content of last meal. Glucose of more than 200 mg/dL in a nonstressed, ambulatory subject supports the diagnosis of Diabetes Mellitus. ADA recommended reference range Performed By: #### A DDONUAPLUS, UHCG, CUU #### [address] Glucose [Mass/volume] in Uri ne by Test stripOrdered By: Claus Obrien on 08-21-2023 Glucose Test strip (U) [Mass/Vol] Normal mg/dL Normal [facility] HCG ( test) IA.rapi d Ql (U)Ordered By: Claus Obrien on 08-21-2023 HCG ( test) Ql (U) Negative [facility] HCG,Qualitative Serumon HCG,Qualitative Serum Negative Normal [facility] Comment on above: Result Comment: PERF ORMED BY: [place] [address] PATHOLOGIST G[employer] LE[employer] ROLLER BAUTISTA BAKER M.D. Performed By: #### A DDONUAPLUS, [facility] #### [address] HCG,Urineon 08-21-2023 Beta HCG ( test) Ql (U) Negative Normal [facility] Comment on above: Order Comment: Name Collection Type:: Clean-Voided Midstream Result Comment: PERF ORMED BY: [place] [address] PATHOLOGIST G[employer] LEAF ROLLER BAUTISTA BAKER M.D. Performed By: #### A DDONUAPLUS, CG, CUU #### [address] Hematocrit [Volume Fraction] of Blood by Automated countOrdered By: Claus Obrien on 08-21-2023 Hematocrit (Bld) [Volume fraction] 33.5 % Low 34.0-46.4 [facility] Comment on above: Performed By: #### H EPATIC, MG, LIPASE, CMP, CBC #### [address] Hemoglobin Test strip Ql (U) Ordered By: Claus Obrien on 08-21-2023 Hemoglobin Ql (U) Negative Negative [facility] Hemoglobin [Mass/volume] in BloodOrdered By: Claus Obrien on 08-21-2023 Hemoglobin (Bld) [Mass/Vol] 11.3 g/dL Low 11.8-15.4 [facility] Comment on above: Performed By: #### H EPATIC, MG, LIPASE, CMP, CBC #### [facility] [address] Hepatic Panelon 08-21-2023 Albumin [Mass/Vol] 3.9 g/dL Normal 3.5-5.7 [facility] Comment on above: Performed By: #### A DDONUAPLUS, UHCG, CUU #### [address] Bilirubin,Indirect 0.2 mg/dL Normal [facility] Comment on above: Performed By: #### A DDONUAPLUS, UHCG, CUU #### [address] Bilirubin.indirect [Mass/Vol] 0.10 mg/dL Normal 0.03-0.18 [facility] Comment on above: Performed By: #### A DDONUAPLUS, UHCG, CUU #### [address] INR in Platelet poor plasma by Coagulation assayOrdered By: Claus Obrien on 08-21-2023 INR Coag (PPP) [Relative time] 1.1 {INR} Normal [facility] Comment on above: INR Therapeutic Rang [...] By: #### A DDONUAPLUS, UHCG, CUU #### [address] Ketones [Presence] in Urine by Test stripOrdered By: Claus Obrien on 08-21-2023 Ketones Ql (U) Negative Normal Negative [facility] Comment on above: Order Comment: Name Collection Type:: Clean-Voided Midstream Performed By: #### A DDONUAPLUS, UHCG, CUU #### [address] Leukocyte esterase [Presence ] in Urine by Test stripOrdered By: Claus Obrine on 08-21-2023 Leukocyte esterase Test strip Ql (U) Negative Normal Negative [facility] Comment on above: Order Comment: Name Collection Type:: Clean-Voided Midstream Performed By: #### A DDONUAPLUS, UHCG, CUU #### [address] Leukocytes [#/volume] correc darvin for nucleated erythrocytes in Blood by Automated counOrdered By: Claus Obrien on 08-21-2023 WBC corrected for nucl RBC Auto (Bld) [#/Vol] 3.9 10*3/uL 3.8-11.6 [facility] Leukocytes [#/volume] in Blo od by Automated countOrdered By: Claus Obrien on 08-21-2023 WBC (Bld) [#/Vol] 3.9 10*3/uL Normal 3.8-11.6 [facility] Comment on above: Performed By: #### H EPATIC, MG, LIPASE, CMP, CBC #### [facility] [address] [place] [address] [place] Lipase [Enzymatic activity/v olume] in Serum or PlasmaOrdered By: Claus Obrien on 08-21-2023 Lipase [Catalytic activity/Vol] 43.0 U/L Normal 11.0-82.0 [facility] Comment on above: Performed By: #### A DDONUAPLUS, UHCG, CUU #### [place] [address] [place] Lymphocytes [#/volume] in Bl ood by Automated countOrdered By: Claus Obrien on 08-21-2023 Lymphocytes (Bld) [#/Vol] 1.2 10*3/uL Normal 1.00-4.8 [facility] Comment on above: Performed By: #### H EPATIC, MG, LIPASE, CMP, CBC #### [facility] [address] [place] [address] Lymphocytes/100 leukocytes i n Blood by Automated countOrdered By: Claus Obrien on 08-21-2023 Lymphocytes/100 WBC (Bld) 30.2 % Normal . [facility] Comment on above: Performed By: #### H EPATIC, MG, LIPASE, CMP, CBC #### [facility] [address] [place] [address] MCH [Entitic mass] by Automa darvin countOrdered By: Claus Obrien on 08-21-2023 MCH (RBC) [Entitic mass] 29.0 pg Normal 24.7-34.3 [facility] Comment on above: Performed By: #### H EPATIC, MG, LIPASE, CMP, CBC #### [facility] [address] [place] [address] MCHC Auto (RBC) [Mass/Vol]Or dered By: Claus Obrien on 08-21-2023 MCHC (RBC) [Mass/Vol] 33.6 g/dL 32.0-35.0 [facility] MCV [Entitic volume] by Auto mated countOrdered By: Claus Obrien on 08-21-2023 MCV (RBC) [Entitic vol] 86.2 fL Normal 80-100 [facility] Comment on above: Performed By: #### H EPATIC, MG, LIPASE, CMP, CBC #### [facility] [address] [place] [address] Monocyte distribution width [Entitic volume] in Blood by AutomatedOrdered By: Claus Obrien on 08-21-2023 Monocyte distribution width Auto (Bld) [Entitic vol] 14.35 % 0.00-20.00 [facility] Neutrophils [#/volume] in Bl ood by Automated countOrdered By: Claus Obrien on 08-21-2023 Neutrophils (Bld) [#/Vol] 2.3 10*3/uL Normal 1.8-7.7 [facility] Comment on above: Performed By: #### H EPATIC, MG, LIPASE, CMP, CBC #### [address] Nitrite Test strip Ql (U)Ord ered By: Claus Obrien on 08-21-2023 Nitrite Ql (U) Negative Negative [facility] No Panel InformationOrdered By: Cluas Obrien on 08-21-2023 Estimated GFR (CKD-EPI) > 60.0 mL/Min [facility] Creatinine Clearance (Chem 115.16 [facility] Nucleated erythrocytes [Pres ence] in Blood by Automated countOrdered By: Claus Obrien on 08-21-2023 Nucleated RBC Auto Ql (Bld) 0.1 /100{WBC} 0-0.5 [facility] Partial Thromboplastin Timeo n 08-21-2023 aPTT Coag (Bld) [Time] 28.4 s Normal 25.1-36.5 [facility] Comment on above: Result Comment: A he matocrit value greater than 55% may lead to inaccurate results in coagulation testing. Patients having hematocrit values >55% require a special collection tube for coagulation studies. Please contact the laboratory at [phone] for redraw instructions. PERFORMED BY: [place] [address] PATHOLOGIST GOLD LEAF ROLLER BAUTISTA BAKER M.D. Performed By: #### A DDONUAJESSICA, CG, CUU #### [address] Platelet mean volume [Entiti c volume] in Blood by Automated countOrdered By: Claus Obrien on 08-21-2023 Platelet mean volume (Bld) [Entitic vol] 8.9 fL Normal 6.3-10.7 [facility] Comment on above: Performed By: #### H EPATIC, MG, LIPASE, CMP, CBC #### [address] Platelets [#/volume] in Bloo d by Automated countOrdered By: Claus Obrien on 08-21-2023 Platelets (Bld) [#/Vol] 208 10*3/uL Normal 150-450 [facility] Comment on above: Performed By: #### H EPATIC, MG, LIPASE, CMP, CBC #### [address] Potassium [Moles/volume] in Serum or PlasmaOrdered By: Claus Obrien on 08-21-2023 Potassium [Moles/Vol] 3.6 mmol/L Normal 3.5-5.1 [facility] Comment on above: Performed By: #### A DDONUAPLUS, UHCG, CUU #### [address] Protein Test strip (U) [Mass /Vol]Ordered By: Claus Obrien on 08-21-2023 Protein (U) [Mass/Vol] Negative Negative [facility] Protein [Mass/volume] in Ser um or PlasmaOrdered By: Claus Obrien on 08-21-2023 Protein [Mass/Vol] 6.4 g/dL Normal 6.4-8.9 [facility] Comment on above: Performed By: #### A DDONUAPLUS, UHCG, CUU #### [address] Prothrombin time (PT)Ordered By: Claus Obrien on 08-21-2023 PT Coag (PPP) [Time] 12.5 s Normal 9.0-12.9 [facility] Comment on above: A hematocrit value g reater than 55% may lead to inaccurate results in coagulation testing. Patients having hematocrit values >55% require a special collection tube for coagulation studies. Please contact the laboratory at [phone] for redraw instructions. Result Comment: A he matocrit value greater than 55% may lead to inaccurate results in coagulation testing. Patients having hematocrit values >55% require a special collection tube for coagulation studies. Please contact the laboratory at [phone] for redraw instructions. Performed By: #### A DDONUAPLUS, UHCG, CUU #### [place] [id number] [place] Serum globulin measurement b y calculation (mass/volume)Ordered By: Claus Obrien on 08-21-2023 Globulin (S) [Mass/Vol] 2.5 g/dL Normal [facility] Comment on above: Performed By: #### A CORY, BRITTANIECG, CUU #### [facility] [address] [place] [address] Serum or plasma albumin/glob ulin mass ratioOrdered By: Claus Obrien on 08-21-2023 Albumin/Globulin [Mass ratio] 1.6 {ratio} [facility] Comment on above: Performed By: #### A CORY [facility] #### [address] Serum or plasma anion gap de terminationOrdered By: Claus Obrien on 08-21-2023 Anion gap [Moles/Vol] 8.9 mmol/L Normal 6.0-15.0 [facility] Comment on above: Performed By: #### A CORY CG, CUU #### [address] Serum or plasma non-glucuron idated bilirubin measurement (mass/volume)Ordered By: Claus Obrien on 08-21-2023 Bilirubin.indirect [Mass/Vol] 0.2 mg/dL [facility] Sodium [Moles/volume] in Ser um or PlasmaOrdered By: Claus Obrien on 08-21-2023 Sodium [Moles/Vol] 136 mmol/L Normal 136-145 [facility] Comment on above: Performed By: #### A CORY, CG, CUU #### [address] Specific gravity Test strip (U) [Rel density]Ordered By: Claus Obrien on 08-21-2023 Specific gravity (U) [Rel density] 1.004 1.001-1.030 [facility] Urea nitrogen [Mass/volume] in Serum or PlasmaOrdered By: Claus Obrien on 08-21-2023 Urea nitrogen [Mass/Vol] 8 mg/dL Normal 7-25 [facility] Comment on above: Performed By: #### A DDONUAPLUS, UHCG, CUU #### [address] Urinalysison 08-21-2023 Bilirubin,Urine Negative Normal Negative [facility] Comment on above: Order Comment: Name Collection Type:: Clean-Voided Midstream Performed By: #### A DDONUAPLUS, UHCG, CUU #### [address] Glucose Ql (U) Normal Normal Normal [facility] Comment on above: Order Comment: Name Collection Type:: Clean-Voided Midstream Performed By: #### A DDONUAPLUS, UHCG, CUU #### [place] [address] [place] Nitrite,Urine Negative Normal Negative [facility] Comment on above: Order Comment: Name Collection Type:: Clean-Voided Midstream Performed By: #### A DDONUAPLUS, UHCG, CUU #### [place] [address] [place] Occult Blood,Urine Negative Normal Negative [facility] Comment on above: Order Comment: Name Collection Type:: Clean-Voided Midstream Performed By: #### A DDONUAPLUS, UHCG, CUU #### [place] [address] [place] Protein,Urine Negative Normal Negative [facility] Comment on above: Order Comment: Name Collection Type:: Clean-Voided Midstream Performed By: #### A DDONUAPLUS, UHCG, CUU #### [place] [address] [place] Specificy [place],Urine 1.004 Normal 1.001-1.030 [facility] Comment on above: Order Comment: Name Collection Type:: Clean-Voided Midstream Performed By: #### A DDONUAPLUS, UHCG, CUU #### [place] [address] [place] Urobilinogen,Urine Normal Normal Normal [facility] Comment on above: Order Comment: Name Collection Type:: Clean-Voided Midstream Performed By: #### A DDFAIZAUAPLUS, BRITTANIECG, CUU #### [facility] [address] Urine appearanceOrdered By: Claus Obrien on 08-21-2023 Appearance (U) Clear Normal Clear [facility] Comment on above: Order Comment: Name Collection Type:: Clean-Voided Midstream Performed By: #### A DDONUAPLUS, UHCG, CUU #### [facility] [address] Urobilinogen Test strip (U) [Mass/Vol]Ordered By: lCaus Obrien on 08-21-2023 Urobilinogen (U) [Mass/Vol] Normal mg/dL Normal [facility] pH of Urine by Test stripOrd ered By: Claus Obrien on 08-21-2023 pH (U) 6.5 [pH] Normal 5.0-9.0 [facility] Comment on above: Order Comment: Name Collection Type:: Clean-Voided Midstream Performed By: #### A DDONUAPLUS, UHCG, CUU #### [facility] [address] CNPNon 08-18-2023 CNPN Normal [facility] Alanine aminotransferase [En zymatic activity/volume] in Serum or PlasmaOrdered By: Shaan Sabillon on 08-14-2023 ALT [Catalytic activity/Vol] 21 U/L Normal 7-52 [facility] Comment on above: Performed By: #### A DDONUAPLUS, UHCG, CUU #### [facility] [address] Albumin [Mass/volume] in Ser um or Plasma by Bromocresol green (BCG) dye binding methoOrdered By: Shaan Sabillon on 08-14-2023 Albumin BCG dye [Mass/Vol] 4.2 g/dL 3.5-5.7 [facility] Alkaline phosphatase [Enzyma tic activity/volume] in Serum or PlasmaOrdered By: Shaan Sabillon on 08-14-2023 ALP [Catalytic activity/Vol] 59 U/L Normal 34-104 [facility] Comment on above: Performed By: #### A JOSESITO RAY, CUU #### [address] Aspartate aminotransferase [ Enzymatic activity/volume] in Serum or PlasmaOrdered By: Shaan Sabillon on 08-14-2023 AST [Catalytic activity/Vol] 32 U/L Normal 13-39 [facility] Comment on above: Performed By: #### A JOSESITO RAY, CUU #### [address] Automated basophil %Ordered By: Shaan Sabillon on 08-14-2023 Basophils/100 WBC (Bld) 0.6 % Normal . [facility] Comment on above: Performed By: #### A JOSESITO RAY, CUU #### [address] Automated basophil countOrde red By: Shaan Sabillon on 08-14-2023 Basophils (Bld) [#/Vol] 0.0 10*3/uL Normal 0.0-0.2 [facility] Comment on above: Result Comment: PERF ORMED BY: [place] [address] PATHOLOGIST G[employer]LLER BAUTISTA BAKER M.D. Performed By: #### A JOSESITO RAY, CUU #### [address] Automated blood monocyte cou ntOrdered By: Shaan Sabillon on 08-14-2023 Monocytes (Bld) [#/Vol] 0.5 10*3/uL Normal 0.0-0.8 [facility] Comment on above: Performed By: #### A JOSESITO RAY, CUU #### [address] Automated eosinophil %Ordere d By: Shaan Sabillon on 08-14-2023 Eosinophils/100 WBC (Bld) 0.7 % Normal . [facility] Comment on above: Performed By: #### A JOSESITO RAY, CUU #### [address] Automated eosinophil countOr dered By: Shana Sabillon on 08-14-2023 Eosinophils (Bld) [#/Vol] 0.0 10*3/uL Normal 0.0-0.45 [facility] Comment on above: Performed By: #### A JOSESITO RAY, CUU #### [address] Automated monocyte %Ordered By: Shaan Sabillon on 08-14-2023 Monocytes/100 WBC (Bld) 7.0 % Normal . [facility] Comment on above: Performed By: #### A JOSESITO RAY, CUU #### [address] Automated neutrophil %Ordere d By: Shaan Sabillon on 08-14-2023 Neutrophils/100 WBC (Bld) 54.4 % Normal . [facility] Comment on above: Performed By: #### A JOSESITO RAY, CUU #### [address] Basic Metabolic Panelon 07-17 Creatinine Clr Calc Pharmacy 116.71 Normal [facility] Comment on above: Performed By: #### A JOSESITO RAY, CUU #### [address] GFR/1.73 sq M.predicted MDRD (S/P/Bld) [Vol rate/Area] mL/min/{1.73_m2} Normal [facility] Comment on above: Performed By: #### A JOSESITO RAY, CUU #### [address] Bilirubin Test strip Ql (U)O rdered By: Shaan Sabillon on 08-14-2023 Bilirubin Ql (U) Negative Negative [facility] Bilirubin.direct [Mass/volum e] in Serum or PlasmaOrdered By: Shaan Sabillon on 08-14-2023 Bilirubin.direct [Mass/Vol] 0.10 mg/dL 0.03-0.18 [facility] Bilirubin.total [Mass/volume ] in Serum or PlasmaOrdered By: Shaan Sabillon on 08-14-2023 Bilirubin [Mass/Vol] 0.3 mg/dL Normal 0.3-1.0 [facility] Comment on above: Performed By: #### A DDONUAPLUS, CG, CUU #### [address] abdomen pelvis w conon CT abdomen pelvis w con [facility] [place] [address] [place] [address] CT Scan Report Signed Patient: Abbey Garcia MR#: [id number] : 1990 Acct:[id number] Age/Sex: 33 / F ADM Date: 08/14/23 Loc: ER Room: Type: [facility] ER Attending Dr: Copies to: Shaan Sabillon [...] Medel Jr., D.O.08/14/2023 5:38 PM Dictation Location: [place] [address] Transcribed By: [facility] 08/14/23 173 Dictated By: Cornel Medel Jr, DO 08/14/23 1736 Signed By: 08/14/23 173 Normal [facility] Calcium [Mass/volume] in Ser um or PlasmaOrdered By: Shaan Sabillon on 08-14-2023 Calcium [Mass/Vol] 8.7 mg/dL Normal 8.6-10.3 [facility] Comment on above: Performed By: #### A DDONUAPLUS, UHCG, CUU #### [facility] [address] [place] [address] [place] Carbon dioxide, total [Moles /volume] in Serum or PlasmaOrdered By: Shaan Sabillon on 08-14-2023 CO2 [Moles/Vol] 21.8 mmol/L Normal 21.0-31.0 [facility] Comment on above: Performed By: #### A DDONUAJESSICA UHCG, CUU #### [facility] [address] [place] [address] [place] Chloride [Moles/volume] in S elder or PlasmaOrdered By: Shaan Sabillon on 08-14-2023 Chloride [Moles/Vol] 110 mmol/L High 98-107 [facility] Comment on above: Performed By: #### A DDONUAPLUS, UHCG, CUU #### [facility] [address] [place] [address] [place] Color of Urine by AutoOrdere d By: Shaan Sabillon on 08-14-2023 Color (U) Light-yellow Normal Yellow [facility] Comment on above: Order Comment: Name Collection Type:: Clean-Voided Midstream Performed By: #### A DDONUAPLUS, UHCG, CUU #### [facility] [address] Complete Blood Count Auto Di ffon 08-14-2023 Mean Corpuscular HGB Conc 33.4 g/dL Normal 32.0-35.0 [facility] Comment on above: Performed By: #### A DDONUAPLUS, UHCG, CUU #### [address] Monocytes/100 WBC (Bld) 16.29 % Normal 0.00-20.00 [facility] Comment on above: Performed By: #### A DDONUAPLUS, UHCG, CUU #### [address] NRBC% 0.0 /100{WBC} Normal 0-0.5 [facility] Comment on above: Performed By: #### A DDONUAPLUS, UHCG, CUU #### [address] Creatinine [Mass/volume] in Serum or PlasmaOrdered By: Shaan Sabillon on 08-14-2023 Creatinine [Mass/Vol] 0.72 mg/dL Normal 0.60-1.20 [facility] Comment on above: Performed By: #### A DDONDAVON, UHCG, CUU #### [address] Erythrocyte distribution wid th [Ratio] by Automated countOrdered By: Shaan Sabillon on 08-14-2023 Erythrocyte distribution width (RBC) [Ratio] 14.0 % Normal 11.9-15.3 [facility] Comment on above: Performed By: #### A DDONUAPLUS, UHCG, CUU #### [address] Erythrocytes [#/volume] in B lood by Automated countOrdered By: Shaan Sabillon on 08-14-2023 RBC (Bld) [#/Vol] 3.99 10*6/uL Normal 3.60-5.00 [facility] Comment on above: Performed By: #### A DDONUAPLUS, UHCG, CUU #### [facility] [address] [place] [address] [place] Glucose [Mass/volume] in Ser um or PlasmaOrdered By: Shaan Sabillon on 08-14-2023 Glucose [Mass/Vol] 82 mg/dL Normal 70-100 [facility] Comment on above: ADA recommended refe rence rangeRandom Glucose Reference Range is dependent on time and content of last meal. Glucose of more than 200 mg/dL in a nonstressed, ambulatory subject supports the diagnosis of Diabetes Mellitus. Result Comment: [place] om Glucose Reference Range is dependent on time and content of last meal. Glucose of more than 200 mg/dL in a nonstressed, ambulatory subject supports the diagnosis of Diabetes Mellitus. ADA recommended reference range Performed By: #### A JOSESITO RAY, CUU #### [address] Glucose [Mass/volume] in Uri ne by Test stripOrdered By: Shaan Sabillon on 08-14-2023 Glucose Test strip (U) [Mass/Vol] Normal mg/dL Normal [facility] Hematocrit [Volume Fraction] of Blood by Automated countOrdered By: Shaan Sabillon on 08-14-2023 Hematocrit (Bld) [Volume fraction] 34.7 % Normal 34.0-46.4 [facility] Comment on above: Performed By: #### A DDONUAJESSICA, ALIYAHG, CUU #### [place] [id number] [facility] Hemoglobin Test strip Ql (U) Ordered By: Shaan Sabillon on 08-14-2023 Hemoglobin Ql (U) Negative Negative [facility] Hemoglobin [Mass/volume] in BloodOrdered By: Shaan Sabillon on 08-14-2023 Hemoglobin (Bld) [Mass/Vol] 11.6 g/dL Low 11.8-15.4 [facility] Comment on above: Performed By: #### A DDONUAJESSICA, UHCG, CUU #### [place] [id number] [facility] Hepatic Panelon 08-14-2023 Albumin [Mass/Vol] 4.2 g/dL Normal 3.5-5.7 [facility] Comment on above: Performed By: #### A DDONUAPLUS, UHCG, CUU #### [place] [address] [place] Bilirubin,Indirect 0.2 mg/dL Normal [facility] Comment on above: Performed By: #### A DDONUAPLUS, UHCG, CUU #### [address] Bilirubin.indirect [Mass/Vol] 0.10 mg/dL Normal 0.03-0.18 [facility] Comment on above: Performed By: #### A DDONUAPLUS, UHCG, CUU #### [address] Ketones [Presence] in Urine by Test stripOrdered By: Shaan Sabillon on 08-14-2023 Ketones Ql (U) Negative Normal Negative [facility] Comment on above: Order Comment: Name Collection Type:: Clean-Voided Midstream Performed By: #### A DDONUAPLUS, UHCG, CUU #### [place] [address] [place] Lactate [Moles/volume] in Se rum or PlasmaOrdered By: Shaan Sabillon on 08-14-2023 Lactate [Moles/Vol] 0.6 mmol/L Normal 0.5-2.2 [facility] Comment on above: Result Comment: PERF ORMED BY: [place] [address] PATHOLOGIST G[employer] LEAF ROLLER BAUTISTA BAKER M.D. Performed By: #### A DDONUAPLUS, UHCG, CUU #### [place] [address] [place] Leukocyte esterase [Presence ] in Urine by Test stripOrdered By: Shaan Sabillon on 08-14-2023 Leukocyte esterase Test strip Ql (U) Negative Normal Negative [facility] Comment on above: Order Comment: Name Collection Type:: Clean-Voided Midstream Performed By: #### A DDONUAPLUS, UHCG, CUU #### [facility] [address] Leukocytes [#/volume] correc darvin for nucleated erythrocytes in Blood by Automated counOrdered By: Shaan Sabillon on 08-14-2023 WBC corrected for nucl RBC Auto (Bld) [#/Vol] 6.6 10*3/uL 3.8-11.6 [facility] Leukocytes [#/volume] in Blo od by Automated countOrdered By: Shaan Sabillon on 08-14-2023 WBC (Bld) [#/Vol] 6.6 10*3/uL Normal 3.8-11.6 [facility] Comment on above: Performed By: #### A JOSESITO RAY, CUU #### [address] Lipase [Enzymatic activity/v olume] in Serum or PlasmaOrdered By: Shaan Sabillon on 08-14-2023 Lipase [Catalytic activity/Vol] 67.0 U/L Normal 11.0-82.0 [facility] Comment on above: Result Comment: PERF ORMED BY: [place] [address] PATHOLOGIST G[employer] LE[employer] ROLLER BAUTISTA BAKER M.D. Performed By: #### A JOSESITO RAY, CUU #### [place] [address] [place] Lymphocytes [#/volume] in Bl ood by Automated countOrdered By: Shaan Sabillon on 08-14-2023 Lymphocytes (Bld) [#/Vol] 2.5 10*3/uL Normal 1.00-4.8 [facility] Comment on above: Performed By: #### A JOSESITO RAY, CUU #### [place] [address] [place] Lymphocytes/100 leukocytes i n Blood by Automated countOrdered By: Shaan Sabillon on 08-14-2023 Lymphocytes/100 WBC (Bld) 37.3 % Normal . [facility] Comment on above: Performed By: #### A JOSESITO RAY, CUU #### [facility] [address] MCH [Entitic mass] by Automa darvin countOrdered By: Shaan Sabillon on 08-14-2023 MCH (RBC) [Entitic mass] 29.0 pg Normal 24.7-34.3 [facility] Comment on above: Performed By: #### A JOSESITO RAY, CUU #### [facility] [address] [place] [address] MCHC Auto (RBC) [Mass/Vol]Or dered By: Shaan Sabillon on 08-14-2023 MCHC (RBC) [Mass/Vol] 33.4 g/dL 32.0-35.0 [facility] MCV [Entitic volume] by Auto mated countOrdered By: Shaan Sabillon on 08-14-2023 MCV (RBC) [Entitic vol] 87.0 fL Normal 80-100 [facility] Comment on above: Performed By: #### A JOSESITO RAY, CUU #### [address] Monocyte distribution width [Entitic volume] in Blood by AutomatedOrdered By: Shaan Sabillon on 08-14-2023 Monocyte distribution width Auto (Bld) [Entitic vol] 16.29 % 0.00-20.00 [facility] Neutrophils [#/volume] in Bl ood by Automated countOrdered By: Shaan Sabillon on 08-14-2023 Neutrophils (Bld) [#/Vol] 3.6 10*3/uL Normal 1.8-7.7 [facility] Comment on above: Performed By: #### A CORY, JOSESITO, CUU #### [facility] [address] [place] [address] Nitrite Test strip Ql (U)Ord ered By: Shaan Sabillon on 08-14-2023 Nitrite Ql (U) Negative Negative [facility] No Panel InformationOrdered By: Shaan Sabillon on 08-14-2023 Estimated GFR (CKD-EPI) > 60.0 mL/Min [facility] Creatinine Clearance (Chem 116.71 [facility] Nucleated erythrocytes [Pres ence] in Blood by Automated countOrdered By: Shaan Sabillon on 08-14-2023 Nucleated RBC Auto Ql (Bld) 0.0 /100{WBC} 0-0.5 [facility] Platelet mean volume [Entiti c volume] in Blood by Automated countOrdered By: Shaan Sabillon on 08-14-2023 Platelet mean volume (Bld) [Entitic vol] 9.0 fL Normal 6.3-10.7 [facility] Comment on above: Performed By: #### A CORY ELIS, CUU #### [facility] [address] [place] [address] Platelets [#/volume] in Bloo d by Automated countOrdered By: Shaan Sabillon on 08-14-2023 Platelets (Bld) [#/Vol] 281 10*3/uL Normal 150-450 [facility] Comment on above: Performed By: #### A CORY ELIS, CUU #### [facility] [address] [place] [address] Potassium [Moles/volume] in Serum or PlasmaOrdered By: Shaan Sabillon on 08-14-2023 Potassium [Moles/Vol] 3.2 mmol/L Low 3.5-5.1 [facility] Comment on above: Performed By: #### A CORY, ELIS, CUU #### [address] Protein Test strip (U) [Mass /Vol]Ordered By: Shaan Sabillon on 08-14-2023 Protein (U) [Mass/Vol] Negative Negative [facility] Protein [Mass/volume] in Ser um or PlasmaOrdered By: Shaan Sabillon on 08-14-2023 Protein [Mass/Vol] 6.9 g/dL Normal 6.4-8.9 [facility] Comment on above: Performed By: #### A CORY, ELIS, CUU #### [address] Serum globulin measurement b y calculation (mass/volume)Ordered By: Shaan Sabillon on 08-14-2023 Globulin (S) [Mass/Vol] 2.7 g/dL Normal [facility] Comment on above: Performed By: #### A JOSESITO RAY, CUU #### [address] Serum or plasma albumin/glob ulin mass ratioOrdered By: Shaan Sabillon on 08-14-2023 Albumin/Globulin [Mass ratio] 1.6 {ratio} [facility] Comment on above: Performed By: #### A JOSESITO RAY, CUU #### [address] Serum or plasma anion gap de terminationOrdered By: Shaan Sabillon on 08-14-2023 Anion gap [Moles/Vol] 10.4 mmol/L Normal 6.0-15.0 [facility] Comment on above: Performed By: #### A JOSESITO RAY, CUU #### [address] Serum or plasma non-glucuron idated bilirubin measurement (mass/volume)Ordered By: Shaan Sabillon on 08-14-2023 Bilirubin.indirect [Mass/Vol] 0.2 mg/dL [facility] Sodium [Moles/volume] in Ser um or PlasmaOrdered By: Shaan Sabillon on 08-14-2023 Sodium [Moles/Vol] 139 mmol/L Normal 136-145 [facility] Comment on above: Performed By: #### A JOSESITO RAY, CUU #### [address] Specific gravity Test strip (U) [Rel density]Ordered By: Shaan Sabillon on 08-14-2023 Specific gravity (U) [Rel density] 1.026 1.001-1.030 [facility] Urea nitrogen [Mass/volume] in Serum or PlasmaOrdered By: Shaan Sabillon on 08-14-2023 Urea nitrogen [Mass/Vol] 8 mg/dL Normal 7-25 [facility] Comment on above: Performed By: #### A JOSESITO RAY, CUU #### [address] Urinalysison 08-14-2023 Bilirubin,Urine Negative Normal Negative [facility] Comment on above: Order Comment: Name Collection Type:: Clean-Voided Midstream Performed By: #### A DDONUAPLUS, UHCG, CUU #### [address] Glucose Ql (U) Normal Normal Normal [facility] Comment on above: Order Comment: Name Collection Type:: Clean-Voided Midstream Performed By: #### A DDONUAPLUS, UHCG, CUU #### [place] [address] [place] Nitrite,Urine Negative Normal Negative [facility] Comment on above: Order Comment: Name Collection Type:: Clean-Voided Midstream Performed By: #### A DDONUAPLUS, UHCG, CUU #### [address] Occult Blood,Urine Negative Normal Negative [facility] Comment on above: Order Comment: Name Collection Type:: Clean-Voided Midstream Result Comment: PERF ORMED BY: [place] [address] PATHOLOGIST GOLD LEAF ROLLER BAUTISTA BAKER M.D. Performed By: #### A DDONUAPLUS, UHCG, CUU #### [address] Protein,Urine Negative Normal Negative [facility] Comment on above: Order Comment: Name Collection Type:: Clean-Voided Midstream Performed By: #### A DDONUAPLUS, UHCG, CUU #### [place] [address] [place] Specificy [place],Urine 1.026 Normal 1.001-1.030 [facility] Comment on above: Order Comment: Name Collection Type:: Clean-Voided Midstream Performed By: #### A DDONUAPLUS, UHCG, CUU #### [address] [place] [address] [place] Urobilinogen,Urine Normal Normal Normal [facility] Comment on above: Order Comment: Name Collection Type:: Clean-Voided Midstream Performed By: #### A DDONUAPLUS, UHCG, CUU #### [facility] [address] Urine appearanceOrdered By: Shaan Sabillon on 08-14-2023 Appearance (U) Clear Normal Clear [facility] Comment on above: Order Comment: Name Collection Type:: Clean-Voided Midstream Performed By: #### A DDONUAPLUS, UHCG, CUU #### [facility] [address] [place] [address] Urobilinogen Test strip (U) [Mass/Vol]Ordered By: Shaan Sabillon on 08-14-2023 Urobilinogen (U) [Mass/Vol] Normal mg/dL Normal [facility] pH of Urine by Test stripOrd ered By: Shaan Sabillon on 08-14-2023 pH (U) 7.0 [pH] Normal 5.0-9.0 [facility] Comment on above: Order Comment: Name Collection Type:: Clean-Voided Midstream Performed By: #### A DDONUAPLUS, UHCG, CUU #### [facility] [address] [place] [address] CNPNon 08-12-2023 CNPN Normal [facility] CNOVon 08-09-2023 CNOV Normal [facility] CASE MGT INIT ASSESon 2023 CASE MGT INIT ASSES Normal [facility] CBC panel Auto (Bld)on 08-07 Erythrocyte distribution width (RBC) [Ratio] 13.2 % Normal 11.5-15.0 [facility] Comment on above: Order Comment: Speci men Type: BLOOD SPECIMENOrdering Facility: [facility] Address: [address] [place] [address] Performed By: #### 5 8410-2 ####[facility] LABCLIA [id number] [address] [id number] [address] [place] Hematocrit (Bld) [Volume fraction] 31.1 % Low 36.0-46.0 [facility] Comment on above: Order Comment: Speci men Type: BLOOD SPECIMENOrdering Facility: [facility] Address: [address] [place] [address] Performed By: #### 5 8410-2 ####[facility] LABCLIA [id number] [place] [address] [place] Hemoglobin (Bld) [Mass/Vol] 9.9 g/dL Low 11.5-15.5 [facility] Comment on above: Order Comment: Speci men Type: BLOOD SPECIMENOrdering Facility: [facility] Address: [address] [place] [address] Performed By: #### 5 8410-2 ####[facility] LABCLIA [id number] [place] [address] [place] MCH (RBC) [Entitic mass] 29.4 pg Normal 26.0-34.0 [facility] Comment on above: Order Comment: Speci men Type: BLOOD SPECIMENOrdering Facility: [facility] Address: [address] [place] [address] Performed By: #### 5 8410-2 ####[facility] LABIA [id number] [place] [address] [place] MCHC (RBC) [Mass/Vol] 31.8 g/dL Normal 30.5-36.0 [facility] Comment on above: Order Comment: Speci men Type: BLOOD SPECIMENOrdering Facility: [facility] Address: [address] [place] [address] Performed By: #### 5 8410-2 ####[facility] LABCLIA [id number] [place] [address] [place] MCV (RBC) [Entitic vol] 92.3 fL Normal 80.0-100.0 [facility] Comment on above: Order Comment: Speci men Type: BLOOD SPECIMENOrdering Facility: [facility] Address: [address] [place] [address] Performed By: #### 5 8410-2 ####[facility] LABIA [id number] [place] [address] [place] Nucleated RBC (Bld) [#/Vol] 10*3/uL Normal <0.01 [facility] Comment on above: Order Comment: Speci men Type: BLOOD SPECIMENOrdering Facility: [facility] Address: [address] [place] [address] Performed By: #### 5 8410-2 ####[facility] LABIA [id number] [place] [address] [place] Platelet mean volume (Bld) [Entitic vol] 10.3 fL Normal 9.0-12.7 [facility] Comment on above: Order Comment: Speci men Type: BLOOD SPECIMENOrdering Facility: [facility] Address: [address] [place] [address] Performed By: #### 5 8410-2 ####[facility] LABIA [id number] [place] [address] [place] Platelets (Bld) [#/Vol] 267 10*3/uL Normal 150-400 [facility] Comment on above: Order Comment: Speci men Type: BLOOD SPECIMENOrdering Facility: [facility] Address: [address] [place] [address] Performed By: #### 5 8410-2 ####[facility] LABIA [id number] [place] [address] [place] RBC (Bld) [#/Vol] 3.37 10*6/uL Low 3.90-5.20 [facility] Comment on above: Order Comment: Speci men Type: BLOOD SPECIMENOrdering Facility: [facility] Address: [address] [place] [address] Performed By: #### 5 8410-2 ####[facility] LABCLIA [id number] [place] [id number] [place] WBC (Bld) [#/Vol] 3.17 10*3/uL Low 3.70-11.00 [facility] Comment on above: Order Comment: Speci men Type: BLOOD SPECIMENOrdering Facility: [facility] Address: [address] [place] [address] Performed By: #### 5 8410-2 ####[facility] LABCLIA [id number] [place] [id number] [place] CNDSon 08-08-2023 CNDS Normal [facility] CRP SerPl-mCncon 08-08-2023 CRP [Mass/Vol] mg/L Normal <0.9 [facility] Comment on above: Order Comment: Speci men Type: BLOOD SPECIMENOrdering Facility: [facility] Address: [address] [place] [address] Performed By: #### 1 988-5, 44333-8, 43205-0 ####[facility] LABCLIA [id number] [place] [address] [place] Magnesium SerPl-mCncon 08-07 Magnesium [Mass/Vol] 2.0 mg/dL Normal 1.7-2.3 [facility] Comment on above: Order Comment: Speci men Type: BLOOD SPECIMENOrdering Facility: [facility] Address: [address] [place] [address] Performed By: #### 1 988-5, 57639-5, 19772-1 ####[facility] LABCLIA [id number] [place] [id number] [place] NUTRITIONon 08-08-2023 NUTRITION Normal [facility] Renal function 2000 panelon 08-08-2023 Albumin [Mass/Vol] 3.4 g/dL Low 3.9-4.9 [place] Comment on above: Order Comment: Speci men Type: BLOOD SPECIMENOrdering Facility: [facility] Address: [address] [place] [address] Performed By: #### 1 988-5, , ####[facility] LABCLIA [id number] [address] [address] [place] Anion gap [Moles/Vol] 9 mmol/L Normal 8-15 [facility] Comment on above: Order Comment: Speci men Type: BLOOD SPECIMENOrdering Facility: [facility] Address: [address] [place], [place] [address] Performed By: #### 1 988-5, , ####[facility] LABCLIA [id number] [address] [address] [place] Calcium [Mass/Vol] 8.7 mg/dL Normal 8.5-10.2 [place] Comment on above: Order Comment: Speci men Type: BLOOD SPECIMENOrdering Facility: [facility] Address: [address] [place], [place] [address] Performed By: #### 1 988-5, , ####[facility] LABCLIA [id number] [address] [address] [place] Chloride [Moles/Vol] 108 mmol/L High 98-107 [facility] Comment on above: Order Comment: Speci men Type: BLOOD SPECIMENOrdering Facility: [facility] Address: [address] [place] [address] Performed By: #### 1 988-5, , ####[facility] LABCLIA [id number] [address] [address] [place] CO2 [Moles/Vol] 22 mmol/L Normal 22-30 [facility] Comment on above: Order Comment: Speci men Type: BLOOD SPECIMENOrdering Facility: [facility] Address: [address] [place] [address] Performed By: #### 1 988-5, , 22503-2 ####[facility] LABIA [id number] [place] [id number] [place] Creatinine [Mass/Vol] 0.69 mg/dL Normal 0.58-0.96 [facility] Comment on above: Order Comment: Specmichael men Type: BLOOD SPECIMENOrdering Facility: [facility] Address: [address] [place] [address] Performed By: #### 1 988-5, , ####[facility] [id number] [place] [address] [place] Creatinine and Glomerular filtration rate.predicted panel (S/P/Bld) 117 mL/min/1.73m??? Normal >=60 [facility] Comment on above: Order Comment: Geraldo marrero Type: BLOOD SPECIMENOrdering Facility: [facility] Address: [address] [place] [address] Result Comment: Jessica mated Glomerular Filtration Rate [...] GFR. Performed By: #### 1 988-5, , ####[facility] LABIA [id number] [address] [address] [place] Glucose [Mass/Vol] 89 mg/dL Normal 74-99 [place] Comment on above: Order Comment: Lyssai elida Type: BLOOD SPECIMENOrdering Facility: [facility] Address: [address] [place] [address] Result Comment: The [place] [employer] (ADA) provides guidance for cutoff [...] Standards of Medical Care in Diabetes 2016, [place] [employer]. Diabetes Care. 2016.39(Suppl 1). Performed By: #### 1 988-5, , ####[facility] LABIA [id number] [place] [address] [place] Phosphate [Mass/Vol] 3.9 mg/dL Normal 2.7-4.8 [facility] Comment on above: Order Comment: Speci men Type: BLOOD SPECIMENOrdering Facility: [facility] Address: [address] [place] [address] Performed By: #### 1 988-5, , ####[facility] LABIA [id number] [place] [address] [place] Potassium [Moles/Vol] 4.1 mmol/L Normal 3.7-5.1 [facility] Comment on above: Order Comment: Speci men Type: BLOOD SPECIMENOrdering Facility: [facility] Address: [address] [place] [address] Performed By: #### 1 988-5, , ####[facility] LABIA [id number] [place] [address] [place] Sodium [Moles/Vol] 139 mmol/L Normal 136-144 [place] Comment on above: Order Comment: Speci men Type: BLOOD SPECIMENOrdering Facility: [facility] Address: [address] [place] [address] Performed By: #### 1 988-5, , 28350-1 ####[facility] LABCLIA [id number] [place] [address] [place] Urea nitrogen [Mass/Vol] 7 mg/dL Normal 7-21 [facility] Comment on above: Order Comment: Speci men Type: BLOOD SPECIMENOrdering Facility: [facility] Address: [address] [place] [address] Performed By: #### 1 988-5, 16865-4, 32002-2 ####[facility] LABCLIA [id number] [place] [address] [place] CBC W Auto Differential pane l (Bld)on 08-07-2023 Basophils (Bld) [#/Vol] 0.04 10*3/uL Normal <0.11 [facility] Comment on above: Order Comment: Speci men Type: BLOOD SPECIMENOrdering Facility: [facility] Address: [address] [place] [address] Performed By: #### 1 4196-0, 62744-1 ####[facility] LABIA [id number] [place] [address] [place] Basophils/100 WBC (Bld) 0.7 % Normal [facility] Comment on above: Order Comment: Speci men Type: BLOOD SPECIMENOrdering Facility: [facility] Address: [address] [place] [address] Performed By: #### 1 4196-0, 71742-2 ####[facility] LABCLIA [id number] [place] [address] [place] Differential cell count method Nom (Bld) Auto Normal [facility] Comment on above: Order Comment: Speci men Type: BLOOD SPECIMENOrdering Facility: [facility] Address: [address] [place] [address] Performed By: #### 1 4196-0, 57312-2 ####[facility] LABCLIA [id number] [place] [address] [place] Eosinophils (Bld) [#/Vol] 0.10 10*3/uL Normal <0.46 [facility] Comment on above: Order Comment: Speci men Type: BLOOD SPECIMENOrdering Facility: [facility] Address: [address] [place] [address] Performed By: #### 1 4196-0, 63838-0 ####[facility] LABCLIA [id number] [place] [address] [place] Eosinophils/100 WBC (Bld) 1.8 % Normal [facility] Comment on above: Order Comment: Speci men Type: BLOOD SPECIMENOrdering Facility: [facility] Address: [address] [place] [address] Performed By: #### 1 4196-0, 67898-9 ####[facility] LABCLIA [id number] [place] [address] [place] Erythrocyte distribution width (RBC) [Ratio] 12.6 % Normal 11.5-15.0 [facility] Comment on above: Order Comment: Speci men Type: BLOOD SPECIMENOrdering Facility: [facility] Address: [address] [place] [address] Performed By: #### 1 4196-0, 13279-3 ####[facility] LABCLIA [id number] [place] [address] [place] Hematocrit (Bld) [Volume fraction] 30.4 % Low 36.0-46.0 [facility] Comment on above: Order Comment: Speci men Type: BLOOD SPECIMENOrdering Facility: [facility] Address: [address] [place] [address] Performed By: #### 1 4196-0, 02797-8 ####[facility] LABCLIA [id number] [place] [address] [place] Hemoglobin (Bld) [Mass/Vol] 10.1 g/dL Low 11.5-15.5 [facility] Comment on above: Order Comment: Speci men Type: BLOOD SPECIMENOrdering Facility: [facility] Address: [address] [place] [address] Performed By: #### 1 4196-0, 52838-4 ####[facility] LABCLIA [id number] [place] [address] [place] Immature granulocytes (Bld) [#/Vol] 10*3/uL Normal <0.10 [facility] Comment on above: Order Comment: Speci men Type: BLOOD SPECIMENOrdering Facility: [facility] Address: [address] [place] [address] Performed By: #### 1 4196-0, 95077-7 ####[facility] LABCLIA [id number] [place] [address] [place] Immature granulocytes/100 WBC (Bld) 0.2 % Normal [facility] Comment on above: Order Comment: Speci men Type: BLOOD SPECIMENOrdering Facility: [facility] Address: [address] [place] [address] Performed By: #### 1 4196-0, 30697-2 ####[facility] LABCLIA [id number] [place] [address] [place] Lymphocytes (Bld) [#/Vol] 1.13 10*3/uL Normal 1.00-4.00 [facility] Comment on above: Order Comment: Speci men Type: BLOOD SPECIMENOrdering Facility: [facility] Address: [address] [place] [address] Performed By: #### 1 4196-0, 24332-5 ####[facility] LABCLIA [id number] [place] [address] [place] Lymphocytes/100 WBC (Bld) 20.8 % Normal [facility] Comment on above: Order Comment: Speci men Type: BLOOD SPECIMENOrdering Facility: [facility] Address: [address] [place], [place] [address] Performed By: #### 1 4196-0, 69798-3 ####[facility] LABIA [id number] [place] [address] [place] MCH (RBC) [Entitic mass] 29.5 pg Normal 26.0-34.0 [facility] Comment on above: Order Comment: Speci men Type: BLOOD SPECIMENOrdering Facility: [facility] Address: [address] [place] [address] Performed By: #### 1 4196-0, 02454-5 ####[facility] LABIA [id number] [address] [place] MCHC (RBC) [Mass/Vol] 33.2 g/dL Normal 30.5-36.0 [facility] Comment on above: Order Comment: Speci men Type: BLOOD SPECIMENOrdering Facility: [facility] Address: [address] [place] [address] Performed By: #### 1 4196-0, 24990-9 ####[facility] [id number] [place] [address] [place] MCV (RBC) [Entitic vol] 88.9 fL Normal 80.0-100.0 [facility] Comment on above: Order Comment: Speci men Type: BLOOD SPECIMENOrdering Facility: [facility] Address: [address] [place] [address] Performed By: #### 1 4196-0, ####[facility] LABIA [id number] [place] [id number] [place] Monocytes (Bld) [#/Vol] 0.38 10*3/uL Normal <0.87 [facility] Comment on above: Order Comment: Speci men Type: BLOOD SPECIMENOrdering Facility: [facility] Address: [address] [place] [address] Performed By: #### 1 4196-0, 29538-7 ####[facility] LABCLIA [id number] [place] [id number] [place] Monocytes/100 WBC (Bld) 7.0 % Normal [facility] Comment on above: Order Comment: Speci men Type: BLOOD SPECIMENOrdering Facility: [facility] Address: [address] [place] [address] Performed By: #### 1 4196-0, 87409-9 ####[facility] LABCLIA [id number] [place] [address] [place] Neutrophils (Bld) [#/Vol] 3.78 10*3/uL Normal 1.45-7.50 [facility] Comment on above: Order Comment: Speci men Type: BLOOD SPECIMENOrdering Facility: [facility] Address: [address] [place] [address] Performed By: #### 1 4196-0, 77531-0 ####[facility] LABCLIA [id number] [place] [address] [place] Neutrophils/100 WBC (Bld) 69.5 % Normal [facility] Comment on above: Order Comment: Speci men Type: BLOOD SPECIMENOrdering Facility: [facility] Address: [address] [place] [address] Performed By: #### 1 4196-0, 52507-6 ####[facility] LABCLIA [id number] [place] [address] [place] Nucleated RBC (Bld) [#/Vol] 10*3/uL Normal <0.01 [facility] Comment on above: Order Comment: Speci men Type: BLOOD SPECIMENOrdering Facility: [facility] Address: [address] [place] [address] Performed By: #### 1 4196-0, 92532-0 ####[facility] LABCLIA [id number] [place] [address] [place] Nucleated RBC/100 WBC (Bld) [Ratio] 0.0 /100 WBC Normal [facility] Comment on above: Order Comment: Speci men Type: BLOOD SPECIMENOrdering Facility: [facility] Address: [address] [place] [address] Performed By: #### 1 4196-0, 19614-1 ####[facility] LABCLIA [id number] [place] [address] [place] Platelet mean volume (Bld) [Entitic vol] 10.0 fL Normal 9.0-12.7 [facility] Comment on above: Order Comment: Speci men Type: BLOOD SPECIMENOrdering Facility: [facility] Address: [address] [place] [address] Performed By: #### 1 4196-0, 70759-7 ####[facility] LABCLIA [id number] [place] [address] [place] Platelets (Bld) [#/Vol] 271 10*3/uL Normal 150-400 [facility] Comment on above: Order Comment: Speci men Type: BLOOD SPECIMENOrdering Facility: [facility] Address: [address] [place] [address] Performed By: #### 1 4196-0, 23197-4 ####[facility] LABIA [id number] [place] [address] [place] RBC (Bld) [#/Vol] 3.42 10*6/uL Low 3.90-5.20 [facility] Comment on above: Order Comment: Speci men Type: BLOOD SPECIMENOrdering Facility: [facility] Address: [address] [place] [address] Performed By: #### 1 4196-0, 41222-6 ####[facility] LABCLIA [id number] [place] [address] [place] WBC (Bld) [#/Vol] 5.44 10*3/uL Normal 3.70-11.00 [facility] Comment on above: Order Comment: Speci men Type: BLOOD SPECIMENOrdering Facility: [facility] Address: [address] [place] [address] Performed By: #### 1 4196-0, 95518-1 ####[facility] LABCLIA [id number] [address] [address] [place] Comprehensive metabolic 2000 panelon 08-07-2023 Albumin [Mass/Vol] 3.7 g/dL Low 3.9-4.9 [place] Comment on above: Order Comment: Speci men Type: BLOOD SPECIMENOrdering Facility: [facility] Address: [address] [place] [address] Performed By: #### 1 9123-9, 3040-3, 94650-1 ####[facility] LABIA [id number] [place] [address] [place] ALP [Catalytic activity/Vol] 58 U/L Normal 34-123 [facility] Comment on above: Order Comment: Speci men Type: BLOOD SPECIMENOrdering Facility: [facility] Address: [address] [place] [address] Performed By: #### 1 9123-9, 3040-3, 12877-7 ####[facility] LABIA [id number] [place] [address] [place] ALT [Catalytic activity/Vol] 16 U/L Normal 7-38 [facility] Comment on above: Order Comment: Speci men Type: BLOOD SPECIMENOrdering Facility: [facility] Address: [address] [place] [address] Performed By: #### 1 9123-9, 0-3, 49221-3 ####[facility] LABCLIA [id number] [place] [id number] [place] Anion gap [Moles/Vol] 8 mmol/L Normal 8-15 [facility] Comment on above: Order Comment: Speci men Type: BLOOD SPECIMENOrdering Facility: [facility] Address: [address] [place] [id number] Performed By: #### 1 9123-9, 3, ####[facility] LABCLIA [id number] [address] [address] [place] AST [Catalytic activity/Vol] 18 U/L Normal 13-35 [facility] Comment on above: Order Comment: Speci men Type: BLOOD SPECIMENOrdering Facility: [facility] Address: [address] [place] [address] Performed By: #### 1 9123-9, 3, 80975-1 ####[facility] LABCLIA [id number] [place] [id number] [place] Bilirubin [Mass/Vol] 0.2 mg/dL Normal 0.2-1.3 [facility] Comment on above: Order Comment: Speci men Type: BLOOD SPECIMENOrdering Facility: [facility] Address: [address] [place] [address] Performed By: #### 1 9123-9, 3, 53186-1 ####[facility] LABCLIA [id number] [place] [id number] [place] Calcium [Mass/Vol] 8.0 mg/dL Low 8.5-10.2 [place] Comment on above: Order Comment: Speci men Type: BLOOD SPECIMENOrdering Facility: [facility] Address: [address] [place], [place] [address] Performed By: #### 1 9123-9, 3, 60718-6 ####[facility] LABIA [id number] [place] [id number] [place] Chloride [Moles/Vol] 108 mmol/L High 98-107 [facility] Comment on above: Order Comment: Speci men Type: BLOOD SPECIMENOrdering Facility: [facility] Address: [address] [place], [place] [address] Performed By: #### 1 9123-9, 3040-3, 03684-8 ####[facility] LABCLIA [id number] [place] [id number] [place] CO2 [Moles/Vol] 23 mmol/L Normal 22-30 [facility] Comment on above: Order Comment: Speci men Type: BLOOD SPECIMENOrdering Facility: [facility] Address: [address] [place] [address] Performed By: #### 1 9123-9, 3040-3, 88006-5 ####[facility] LABCLIA [id number] [place] [address] [place] Creatinine [Mass/Vol] 0.60 mg/dL Normal 0.58-0.96 [facility] Comment on above: Order Comment: Speci men Type: BLOOD SPECIMENOrdering Facility: [facility] Address: [address] [place] [address] Performed By: #### 1 9123-9, 3040-3, 75218-2 ####[facility] LABIA [id number] [place] [address] [place] Creatinine and Glomerular filtration rate.predicted panel (S/P/Bld) 121 mL/min/1.73m??? Normal >=60 [facility] Comment on above: Order Comment: Speci men Type: BLOOD SPECIMENOrdering Facility: [facility] Address: [address] [place] [address] Result Comment: Jessica mated Glomerular Filtration Rate [...] GFR. Performed By: #### 1 9123-9, 3040-3, 27889-5 ####[facility] LABCLIA [id number] [place] [address] [place] Glucose [Mass/Vol] 89 mg/dL Normal 74-99 [place] Comment on above: Order Comment: Speci men Type: BLOOD SPECIMENOrdering Facility: [facility] Address: [address] [place] [address] Result Comment: The [place] [employer] (ADA) provides guidance for cutoff [...] Standards of Medical Care in Diabetes 2016, [place] [employer]. Diabetes Care. 2016.39(Suppl 1). Performed By: #### 1 9123-9, 3040-3, 41519-5 ####[facility] [id number] [place] [address] [place] Potassium [Moles/Vol] 3.6 mmol/L Low 3.7-5.1 [facility] Comment on above: Order Comment: Speci men Type: BLOOD SPECIMENOrdering Facility: [facility] Address: [address] [place] [address] Performed By: #### 1 9123-9, 3040-3, 48202-7 ####[facility] [id number] [place] [address] [place] Protein [Mass/Vol] 5.8 g/dL Low 6.3-8.0 [place] Comment on above: Order Comment: Speci men Type: BLOOD SPECIMENOrdering Facility: [facility] Address: [address] [place] [address] Performed By: #### 1 9123-9, 3040-3, ####[facility] LABCLIA [id number] [address] [address] [place] Sodium [Moles/Vol] 139 mmol/L Normal 136-144 [place] Comment on above: Order Comment: Speci men Type: BLOOD SPECIMENOrdering Facility: [facility] Address: [address] [place] [address] Performed By: #### 1 9123-9, 3040-3, 85985-6 ####[facility] LABCLIA [id number] [place] [id number] [place] Urea nitrogen [Mass/Vol] 10 mg/dL Normal 7-21 [facility] Comment on above: Order Comment: Speci men Type: BLOOD SPECIMENOrdering Facility: [facility] Address: [address] [place] [address] Performed By: #### 1 9123-9, 3039-3, ####[facility] LABCLIA [id number] [place] [id number] [place] VAV74hb 08-07-2023 ECG01 Normal [facility] ED NOTEon 08-07-2023 ED NOTE HNO ID: [id number] Author: PASTORA MADERA RN Service: ? Author Type: Registered Nurse Type: ED Notes Filed: 08/07/2023 17:39 Note Text: Report given to H80 Normal [facility] ED NOTE HNO ID: [id number] Author: PASTORA MADERA RN Service: ? Author Type: Registered Nurse Type: ED Notes Filed: 08/07/2023 17:07 Note Text: Report attempted x1. Call back # given Normal [facility] ED NOTE HNO ID: [id number] Author: ESTEFANI WHITE CT Service: Emergency Medicine Author Type: Clinical Senior Net Developer Architect Type: ED Notes Filed: 08/07/2023 09:32 Note Text: EKG complete Normal [facility] ED PROV NOTEon 08-07-2023 ED PROV NOTE Normal [facility] HISTORY PHYSICALon HISTORY PHYSICAL Normal [facility] Lactate (Bld) [Moles/Vol]on 08-07-2023 Lactate [Moles/Vol] 0.8 mmol/L Normal 0.5-2.2 [facility] Comment on above: Order Comment: Speci men Type: BLOOD SPECIMENOrdering Facility: [facility] Address: [address] [place] [address] Performed By: #### 3 2693-4 ####[facility] LABIA [id number] [place] [address] [place] Lipase SerPl-cCncon 08-07-19 24 Lipase [Catalytic activity/Vol] 45 U/L Normal 16-61 [facility] Comment on above: Order Comment: Speci men Type: BLOOD SPECIMENOrdering Facility: [facility] Address: [address] [place] [address] Performed By: #### 1 9123-9, 3040-3, 99212-6 ####[facility] LABIA [id number] [place] [id number] [place] Magnesium SerPl-mCncon 08-06 Magnesium [Mass/Vol] 1.9 mg/dL Normal 1.7-2.3 [facility] Comment on above: Order Comment: Speci men Type: BLOOD SPECIMENOrdering Facility: [facility] Address: [address] [place] [address] Performed By: #### 1 9123-9, 3040-3, 18267-6 ####[facility] [id number] [place] [id number] [place] Retics #on 08-07-2023 Reticulocytes (Bld) [#/Vol] 0.60635 10*3/uL Normal 0.018-0.100 [facility] Comment on above: Order Comment: Speci men Type: BLOOD SPECIMENOrdering Facility: [facility] Address: [address] [place] [address] Performed By: #### 1 4196-0, 30709-6 ####[facility] LABCLIA [id number] [place] [address] [place] Reticulocytes (Bld) [#/Vol]o n 08-07-2023 Reticulocytes/100 RBC (Bld) 1.6 % Normal 0.4-2.0 [facility] Comment on above: Order Comment: Speci men Type: BLOOD SPECIMENOrdering Facility: [facility] Address: [address] [place] [address] Performed By: #### 1 4196-0, 55396-8 ####[facility] LABCLIA [id number] [place] [address] [place] STREPTOCOCCUS PNEUMONIAE ANT IGEN URINEon 08-07-2023 STREPTOCOCCUS PNEUMONIAE ANTIGEN URINE Normal [facility] Comment on above: Performed By: #### S PNAG ####[facility] LABCLIA [id number] [place] [id number] [place] XR CHEST 2V FRONTAL/LATon XR CHEST 2V FRONTAL/LAT Normal [facility] CASE MANAGEMon 08-06-2023 CASE MANAGEM Normal [facility] CNDSon 08-06-2023 CNDS Normal [facility] CONSULT PROGon 08-06-2023 CONSULT PROG Normal [facility] Magnesium SerPl-mCncon 08-05 Magnesium [Mass/Vol] 1.8 mg/dL Normal 1.7-2.3 [facility] Comment on above: Order Comment: Speci men Type: BLOOD SPECIMENOrdering Facility: [facility] Address: [address] [place] [address] Performed By: #### 1 9123-9, 15476-2 ####[facility] LABORATORYCLIA [id number] [facility] [place] [address] [place] NURSING PROGon 08-06-2023 NURSING PROG Normal [facility] NUTRITIONon 08-06-2023 NUTRITION Normal [facility] Renal function 2000 panelon 08-06-2023 Albumin [Mass/Vol] 3.5 g/dL Low 3.9-4.9 [facility] Comment on above: Order Comment: Speci men Type: BLOOD SPECIMENOrdering Facility: [facility] Address: [address] [place] [address] Performed By: #### 1 9123-9, 04532-8 ####[facility] LABORATORYCLIA [id number] [place] [address] [place] Anion gap [Moles/Vol] 10 mmol/L Normal 8-15 [facility] Comment on above: Order Comment: Speci men Type: BLOOD SPECIMENOrdering Facility: [facility] Address: [address] [place] [address] Performed By: #### 1 9123-9, 78241-8 ####[facility] PARKIA [id number] [place] [address] [place] Calcium [Mass/Vol] 8.2 mg/dL Low 8.5-10.2 [facility] Comment on above: Order Comment: Speci men Type: BLOOD SPECIMENOrdering Facility: [facility] Address: [address] [place] [address] Performed By: #### 1 9123-9, 64512-0 ####[facility] PARKIA [id number] [place] [address] [place] Chloride [Moles/Vol] 106 mmol/L Normal 98-107 [facility] Comment on above: Order Comment: Speci men Type: BLOOD SPECIMENOrdering Facility: [facility] Address: [address] [place] [address] Performed By: #### 1 9123-9, 96810-6 ####[facility] LABORATORYIA [id number] [place] [address] [place] CO2 [Moles/Vol] 23 mmol/L Normal 22-30 [facility] ital Comment on above: Order Comment: Speci men Type: BLOOD SPECIMENOrdering Facility: [facility] Address: [address] [place] [address] Performed By: #### 1 9123-9, 62876-7 ####[facility] LABORATORYIA [id number] [place] [address] [place] Creatinine [Mass/Vol] 0.71 mg/dL Normal 0.58-0.96 [facility] Comment on above: Order Comment: Speci men Type: BLOOD SPECIMENOrdering Facility: [facility] Address: [address] [place] [address] Performed By: #### 1 9123-9, 27620-7 ####[facility] LABORATORYCLIA [id number] [place] [address] [place] Creatinine and Glomerular filtration rate.predicted panel (S/P/Bld) 115 mL/min/1.73m??? Normal >=60 [facility] Comment on above: Order Comment: Geraldo marrero Type: BLOOD SPECIMENOrdering Facility: [facility] Address: [address] [place] [address] Result Comment: Jessica mated Glomerular Filtration Rate [...] actual GFR. Performed By: #### 1 9123-9, 28027-9 ####[facility] LABORATORYIA [id number] [place] [address] [place] Glucose [Mass/Vol] 106 mg/dL High 74-99 [facility] Comment on above: Order Comment: Lyssai men Type: BLOOD SPECIMENOrdering Facility: [facility] Address: [address] [place] [address] Result Comment: The [place] [employer] (ADA) provides guidance for cutoff [...] Standards of Medical Care in Diabetes 2016, [place] [employer]. Diabetes Care. 2016.39(Suppl 1). Performed By: #### 1 9123-9, 01483-0 ####[facility] LABORATORYCLIA [id number] [place] [address] [place] Phosphate [Mass/Vol] 4.2 mg/dL Normal 2.7-4.8 [facility] Comment on above: Order Comment: Speci men Type: BLOOD SPECIMENOrdering Facility: [facility] Address: [address] [place] [address] Performed By: #### 1 9123-9, 95722-5 ####[facility] PARKIA [id number] [place] [address] [place] Potassium [Moles/Vol] 3.8 mmol/L Normal 3.7-5.1 [facility] Comment on above: Order Comment: Speci men Type: BLOOD SPECIMENOrdering Facility: [facility] Address: [address] [place] [address] Performed By: #### 1 9123-9, 41851-9 ####[facility] LABORATORYIA [id number] [place] [address] [place] Sodium [Moles/Vol] 139 mmol/L Normal 136-144 [facility] Comment on above: Order Comment: Speci men Type: BLOOD SPECIMENOrdering Facility: [facility] Address: [address] [place] [address] Performed By: #### 1 9123-9, 10180-6 ####[facility] LABORATORYIA [id number] [place] [address] [place] Urea nitrogen [Mass/Vol] 12 mg/dL Normal 7-21 [facility] Comment on above: Order Comment: Speci men Type: BLOOD SPECIMENOrdering Facility: [facility] Address: [address] [place] [address] Performed By: #### 1 9123-9, 10502-7 ####[facility] LABORATORYIA [id number] [facility] [place] [address] [place] ALLIED HEALTHon 08-05-2023 ALLIED HEALTH Normal [facility] CASE MGT INIT ASSESon 2023 CASE MGT INIT ASSES Normal [facility] CONSULTon 08-05-2023 CONSULT Normal [facility] NUTRITIONon 08-05-2023 NUTRITION Normal [facility] CBC W Auto Differential pane l (Bld)on 08-04-2023 Basophils (Bld) [#/Vol] 0.04 10*3/uL Normal <0.11 [facility] Comment on above: Order Comment: Speci men Type: BLOOD SPECIMENOrdering Facility: [facility] Address: [address] [place] [address] Performed By: #### 5 7021-8 ####[facility] LABORATORYIA [id number] [facility] [place] [address] [place] Basophils/100 WBC (Bld) 0.5 % Normal [facility] Comment on above: Order Comment: Speci men Type: BLOOD SPECIMENOrdering Facility: [facility] Address: [address] [place] [address] Performed By: #### 5 7021-8 ####[facility] LABORATORYIA [id number] [facility] [place] [address] [place] Differential cell count method Nom (Bld) Auto Normal [facility] Comment on above: Order Comment: Speci men Type: BLOOD SPECIMENOrdering Facility: [facility] Address: [address] [place] [address] Performed By: #### 5 7021-8 ####[facility] LABORATORYCLIA [id number] [facility] [place] [address] [place] Eosinophils (Bld) [#/Vol] 0.05 10*3/uL Normal <0.46 [facility] Comment on above: Order Comment: Speci men Type: BLOOD SPECIMENOrdering Facility: [facility] Address: [address] [place] [address] Performed By: #### 5 7021-8 ####[facility] PARKIA [id number] [place] [address] [place] Eosinophils/100 WBC (Bld) 0.6 % Normal [facility] Comment on above: Order Comment: Speci men Type: BLOOD SPECIMENOrdering Facility: [facility] Address: [address] [place] [address] Performed By: #### 5 7021-8 ####[facility] PARKIA [id number] [place] [address] [place] Erythrocyte distribution width (RBC) [Ratio] 12.8 % Normal 11.5-15.0 [facility] Comment on above: Order Comment: Speci men Type: BLOOD SPECIMENOrdering Facility: [facility] Address: [address] [place] [address] Performed By: #### 5 7021-8 ####[facility] PARKIA [id number] [place] [address] [place] Hematocrit (Bld) [Volume fraction] 36.2 % Normal 36.0-46.0 [facility] Comment on above: Order Comment: Speci men Type: BLOOD SPECIMENOrdering Facility: [facility] Address: [address] [place] [address] Performed By: #### 5 7021-8 ####[facility] PARKIA [id number] [place] [address] [place] Hemoglobin (Bld) [Mass/Vol] 12.0 g/dL Normal 11.5-15.5 [facility] Comment on above: Order Comment: Speci men Type: BLOOD SPECIMENOrdering Facility: [facility] Address: [address] [place] [address] Performed By: #### 5 7021-8 ####[facility] LABORATORYIA [id number] [place] [address] [place] Immature granulocytes (Bld) [#/Vol] 10*3/uL Normal <0.10 [facility] Comment on above: Order Comment: Speci men Type: BLOOD SPECIMENOrdering Facility: [facility] Address: [address] [place] [address] Performed By: #### 5 7021-8 ####[facility] LABORATORYCLIA [id number] [place] [address] [place] Immature granulocytes/100 WBC (Bld) 0.2 % Normal [facility] Comment on above: Order Comment: Speci men Type: BLOOD SPECIMENOrdering Facility: [facility] Address: [address] [place] [address] Performed By: #### 5 7021-8 ####[facility] PARKIA [id number] [place] [address] [place] Lymphocytes (Bld) [#/Vol] 1.30 10*3/uL Normal 1.00-4.00 [facility] Comment on above: Order Comment: Speci men Type: BLOOD SPECIMENOrdering Facility: [facility] Address: [address] [place] [address] Performed By: #### 5 7021-8 ####[facility] PARKIA [id number] [place] [id number] [place] Lymphocytes/100 WBC (Bld) 14.9 % Normal [facility] Comment on above: Order Comment: Speci men Type: BLOOD SPECIMENOrdering Facility: [facility] Address: [address] [place] [address] Performed By: #### 5 7021-8 ####[facility] LABORATORYIA [id number] [place] [address] [place] MCH (RBC) [Entitic mass] 30.1 pg Normal 26.0-34.0 [facility] Comment on above: Order Comment: Speci men Type: BLOOD SPECIMENOrdering Facility: [facility] Address: [address] [place] [address] Performed By: #### 5 7021-8 ####[facility] LABORATORYIA [id number] [place] [address] [place] MCHC (RBC) [Mass/Vol] 33.1 g/dL Normal 30.5-36.0 [facility] Comment on above: Order Comment: Speci men Type: BLOOD SPECIMENOrdering Facility: [facility] Address: [address] [place] [address] Performed By: #### 5 7021-8 ####[facility] LABORATORYIA [id number] [place] [address] [place] MCV (RBC) [Entitic vol] 90.7 fL Normal 80.0-100.0 [facility] Comment on above: Order Comment: Speci men Type: BLOOD SPECIMENOrdering Facility: [facility] Address: [address] [place] [address] Performed By: #### 5 7021-8 ####[facility] [id number] [place] [id number] [place] Monocytes (Bld) [#/Vol] 0.39 10*3/uL Normal <0.87 [facility] Comment on above: Order Comment: Speci men Type: BLOOD SPECIMENOrdering Facility: [facility] Address: [address] [place] [address] Performed By: #### 5 7021-8 ####[facility] [id number] [place] [id number] [place] Monocytes/100 WBC (Bld) 4.5 % Normal [facility] Comment on above: Order Comment: Speci men Type: BLOOD SPECIMENOrdering Facility: [facility] Address: [address] [place] [address] Performed By: #### 5 7021-8 ####[facility] PARKIA [id number] [place] [id number] [place] Neutrophils (Bld) [#/Vol] 6.91 10*3/uL Normal 1.45-7.50 [facility] Comment on above: Order Comment: Speci men Type: BLOOD SPECIMENOrdering Facility: [facility] Address: [address] [place] [address] Performed By: #### 5 7021-8 ####[facility] PARKIA [id number] [place] [address] [place] Neutrophils/100 WBC (Bld) 79.3 % Normal [facility] Comment on above: Order Comment: Speci men Type: BLOOD SPECIMENOrdering Facility: [facility] Address: [address] [place] [address] Performed By: #### 5 7021-8 ####[facility] PARKIA [id number] [place] [address] [place] Nucleated RBC (Bld) [#/Vol] 10*3/uL Normal <0.01 [facility] Comment on above: Order Comment: Speci men Type: BLOOD SPECIMENOrdering Facility: [facility] Address: [address] [place] [address] Performed By: #### 5 7021-8 ####[facility] PARK[facility] [id number] [place] [address] [place] Nucleated RBC/100 WBC (Bld) [Ratio] 0.0 /100 WBC Normal [facility] Comment on above: Order Comment: Speci men Type: BLOOD SPECIMENOrdering Facility: [facility] Address: [address] [place] [address] Performed By: #### 5 7021-8 ####[facility] P[facility] [id number] [place] [address] [place] Platelet mean volume (Bld) [Entitic vol] 10.5 fL Normal 9.0-12.7 [facility] Comment on above: Order Comment: Speci men Type: BLOOD SPECIMENOrdering Facility: [facility] Address: [address] [place] [address] Performed By: #### 5 7021-8 ####[facility] LABORATORYIA [id number] [facility] [place] [address] [place] Platelets (Bld) [#/Vol] 328 10*3/uL Normal 150-400 [facility] Comment on above: Order Comment: Speci men Type: BLOOD SPECIMENOrdering Facility: [facility] Address: [address] [place] [address] Performed By: #### 5 7021-8 ####[facility] LABORATORYCLIA [id number] [place] [address] [place] RBC (Bld) [#/Vol] 3.99 10*6/uL Normal 3.90-5.20 [facility] Comment on above: Order Comment: Speci men Type: BLOOD SPECIMENOrdering Facility: [facility] Address: [address] [place] [address] Performed By: #### 5 7021-8 ####[facility] LABORATORYCLIA [id number] [place] [address] [place] WBC (Bld) [#/Vol] 8.71 10*3/uL Normal 3.70-11.00 [facility] Comment on above: Order Comment: Speci men Type: BLOOD SPECIMENOrdering Facility: [facility] Address: [address] [place], [place] [address] Performed By: #### 5 7021-8 ####[facility] LABORATORYCLIA [id number] [place] [address] [place] CNOVon 08-04-2023 CNOV Normal [facility] CNPNon 08-04-2023 CNPN Normal [facility] CONSULTon 08-04-2023 CONSULT Normal [facility] CT ABD/PEL W IVCONon 024 CT ABD/PEL W IVCON Normal [facility] CT BRAIN WO IVCONon 08-04-[address] BRAIN WO IVCON Normal [facility] Comprehensive metabolic 2000 panelon 08-04-2023 Albumin [Mass/Vol] 3.8 g/dL Low 3.9-4.9 [facility] Comment on above: Order Comment: Speci men Type: BLOOD SPECIMENOrdering Facility: [facility] Address: [address] [place] [address] Performed By: #### 2 4323-8, 0-3, ####[facility] LABORATORYCLIA [id number] [facility] [place] [address] [place] ALP [Catalytic activity/Vol] 76 U/L Normal 34-123 [facility] Comment on above: Order Comment: Speci men Type: BLOOD SPECIMENOrdering Facility: [facility] Address: [address] [place] [address] Performed By: #### 2 4323-8, 3039-3, ####[facility] LABORATORYCLIA [id number] [facility] [place] [address] [place] ALT [Catalytic activity/Vol] Normal [facility] Comment on above: Order Comment: Speci men Type: BLOOD SPECIMENOrdering Facility: [facility] Address: [address] [place] [address] Result Comment: Unab le to assay due to interference from hemolysis. Suggest reorder as clinically indicated. Performed By: #### 2 4323-8, 3, ####[facility]ITAL[facility] [id number] [facility] [place] [address] [place] Anion gap [Moles/Vol] 10 mmol/L Normal 8-15 [facility] Comment on above: Order Comment: Speci men Type: BLOOD SPECIMENOrdering Facility: [facility] Address: [address] [place] [address] Performed By: #### 2 4323-8, 3, ####[facility] LABORATORYCLIA [id number] [facility] [place] [address] [place] AST [Catalytic activity/Vol] Normal [facility] Comment on above: Order Comment: Speci men Type: BLOOD SPECIMENOrdering Facility: [facility] Address: [address] [place] [address] Result Comment: Unab le to assay due to interference from hemolysis. Suggest reorder as clinically indicated. Performed By: #### 2 4323-8, 0-3, ####[facility] LABORATORYCLIA [id number] [place] [address] [place] Bilirubin [Mass/Vol] 0.3 mg/dL Normal 0.2-1.3 [facility] Comment on above: Order Comment: Speci men Type: BLOOD SPECIMENOrdering Facility: [facility] Address: [address] [place] [address] Performed By: #### 2 4323-8, 0-3, ####[facility] LABORATORYCLIA [id number] [place] [address] [place] Calcium [Mass/Vol] 8.7 mg/dL Normal 8.5-10.2 [facility] Comment on above: Order Comment: Speci men Type: BLOOD SPECIMENOrdering Facility: [facility] Address: [address] [place] [address] Performed By: #### 2 4323-8, 3, ####[facility] LABORATORYCLIA [id number] [place] [address] [place] Chloride [Moles/Vol] 106 mmol/L Normal 98-107 [facility] Comment on above: Order Comment: Speci men Type: BLOOD SPECIMENOrdering Facility: [facility] Address: [address] [place] [address] Performed By: #### 2 4323-8, 3, ####[facility] LABORATORYCLIA [id number] [place] [address] [place] CO2 [Moles/Vol] 23 mmol/L Normal 22-30 [facility] ital Comment on above: Order Comment: Speci men Type: BLOOD SPECIMENOrdering Facility: [facility] Address: [address] [place] [address] Performed By: #### 2 4323-8, 3039-3, ####[facility] LABORATORYCLIA [id number] [place] [address] [place] Creatinine [Mass/Vol] 0.71 mg/dL Normal 0.58-0.96 [facility] Comment on above: Order Comment: Speci men Type: BLOOD SPECIMENOrdering Facility: [facility] Address: [address] [place] [address] Performed By: #### 2 4323-8, 3040-3, 87024-7 ####[facility] LABORATORYCLIA [id number] [facility] [place] [address] [place] Creatinine and Glomerular filtration rate.predicted panel (S/P/Bld) 115 mL/min/1.73m??? Normal >=60 [facility] Comment on above: Order Comment: Geraldo marrero Type: BLOOD SPECIMENOrdering Facility: [facility] Address: [address] [place] [address] Result Comment: Jessica mated Glomerular Filtration Rate [...] GFR. Performed By: #### 2 4323-8, 3040-3, 33246-9 ####[facility] LABORATORYCLIA [id number] [facility] [place] [address] [place] Glucose [Mass/Vol] 82 mg/dL Normal 74-99 [facility] Comment on above: Order Comment: Geraldo elida Type: BLOOD SPECIMENOrdering Facility: [facility] Address: [address] [place] [id number] Result Comment: The [place] [employer] (ADA) provides guidance for cutoff [...] Standards of Medical Care in Diabetes 2016, [place] [employer]. Diabetes Care. 2016.39(Suppl 1). Performed By: #### 2 4323-8, 3040-3, ####[facility] [id number] [place] [address] [place] Potassium [Moles/Vol] 4.3 mmol/L Normal 3.7-5.1 [facility] Comment on above: Order Comment: Speci men Type: BLOOD SPECIMENOrdering Facility: [facility] Address: [address] [place] [address] Performed By: #### 2 4323-8, 0-3, ####[facility] [id number] [place] [address] [place] Protein [Mass/Vol] 6.8 g/dL Normal 6.3-8.0 [facility] Comment on above: Order Comment: Speci men Type: BLOOD SPECIMENOrdering Facility: [facility] Address: [address] [place] [address] Performed By: #### 2 4323-8, 3039-3, ####[facility] [id number] [place] [address] [place] Sodium [Moles/Vol] 139 mmol/L Normal 136-144 [facility] Comment on above: Order Comment: Speci men Type: BLOOD SPECIMENOrdering Facility: [facility] Address: [address] [place] [address] Performed By: #### 2 4323-8, 0-3, ####[facility] [id number] [place] [address] [place] Urea nitrogen [Mass/Vol] 6 mg/dL Low 7-21 [facility] Comment on above: Order Comment: Speci men Type: BLOOD SPECIMENOrdering Facility: [facility] Address: [address] [place] [address] Performed By: #### 2 4323-8, 0-3, ####[facility]ORY[facility] [id number] [facility] [place] [address] [place] ECG COMPLETEon 08-04-2023 ECG COMPLETE Normal [facility] ED NOTEon 08-04-2023 ED NOTE HNO ID: [id number] Author: ANAM NAILS, RN Service: Emergency Medicine Author Type: Registered Nurse Type: ED Notes Filed: 08/04/2023 14:44 Note Text: Pt remains unable to provide urine sample at this time. [facility] ED NOTE HNO ID: [id number] Author: ANAM NAILS, RN Service: Emergency Medicine Author Type: Registered Nurse Type: ED Notes Filed: 08/04/2023 14:43 Note Text: Pt unable to provide urine sample at this time. [facility] ED NOTE HNO ID: [id number] Author: CORIE BILLINGSLEY, Medic Service: ? 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 Pt had had multiple episodes of diarrhea as well. Normal [facility] ED PROV NOTEon 08-04-2023 ED PROV NOTE Normal [facility] HIGH SENSITIVITY TROPONIN T (INITIAL)on 08-04-2023 Troponin T.cardiac High sensitivity method [Mass/Vol] <6 Normal <12 [facility] Comment on above: Order Comment: Speci men Type: BLOOD SPECIMENOrdering Facility: [facility] Address: [address] [place] [address] Result Comment: When assessing risk for acute [...] 30 day MACE. Performed By: #### L [id number] ####[facility]ORYCLIA [id number] [facility] [place] [address] [place] HIGH SENSITIVITY TROPONIN T (SECOND)on 08-04-2023 Troponin T.cardiac High sensitivity method [Mass/Vol] <6 Normal <12 [facility] Comment on above: Order Comment: Geraldo marrero Type: BLOOD SPECIMENOrdering Facility: [facility] Address: [address] [place] [address] Result Comment: When assessing risk for acute [...] 30 day MACE. Performed By: #### L [id number] ####[facility]ORYIA [id number] [place] [address] [place] HISTORY PHYSICALon 4 HISTORY PHYSICAL Normal [facility] Lipase SerPl-cCncon 08-04-19 24 Lipase [Catalytic activity/Vol] 52 U/L Normal 16-61 [facility] Comment on above: Order Comment: Geraldo marrero Type: BLOOD SPECIMENOrdering Facility: [facility] Address: [address] [place] [address] Performed By: #### 2 4323-8, 3040-3, 86439-6 ####[facility] [id number] [place] [address] [place] Magnesium SerPl-mCncon 08-03 Magnesium [Mass/Vol] 1.9 mg/dL Normal 1.7-2.3 [facility] Comment on above: Order Comment: Lyssai men Type: BLOOD SPECIMENOrdering Facility: [facility] Address: [address] [place] [address] Performed By: #### 2 4323-8, 3040-3, 00592-3 ####[facility]ORYIA [id number] [place] [address] [place] SEPSIS LACTATE W/ REFLEX (IN ITIAL)on 08-04-2023 Lactate [Moles/Vol] 1.5 mmol/L Normal 0.0-2.0 [facility] Comment on above: Order Comment: Lyssai men Type: BLOOD SPECIMENOrdering Facility: [facility] Address: [address] [place] [address] Performed By: #### S LACTR ####[facility] [id number] [place] [address] [place] Urinalysis complete panel (U )on 08-04-2023 Bilirubin Ql (U) Negative Normal Negative [facility] Comment on above: Order Comment: Speci men Type: URINE SPECIMENOrdering Facility: [facility] Address: [address] [place] [address] Performed By: #### 2 4356-8 ####[facility] [id number] [place] [address] [place] Clarity (Unsp spec) Clear Normal Clear [facility] Comment on above: Order Comment: Speci men Type: URINE SPECIMENOrdering Facility: [facility] Address: [address] [place] [address] Performed By: #### 2 4356-8 ####[facility] [id number] [place] [address] [place] Color (U) Yellow Normal Yellow [facility] Comment on above: Order Comment: Speci men Type: URINE SPECIMENOrdering Facility: [facility] Address: [address] [place] [address] Performed By: #### 2 4356-8 ####[facility] [id number] [place] [address] [place] Glucose Test strip (U) [Mass/Vol] Negative Normal Trace, Negative [facility] Comment on above: Order Comment: Speci men Type: URINE SPECIMENOrdering Facility: [facility] Address: [address] [place] [address] Performed By: #### 2 4356-8 ####[facility] [id number] [place] [address] [place] Hemoglobin Ql (U) Negative Normal Negative, Trace [facility] Comment on above: Order Comment: Speci men Type: URINE SPECIMENOrdering Facility: [facility] Address: [address] [place] [address] Performed By: #### 2 4356-8 ####[facility] [id number] [place] [id number] [place] Ketones Ql (U) Negative Normal Negative, Trace [facility] Comment on above: Order Comment: Speci men Type: URINE SPECIMENOrdering Facility: [facility] Address: [address] [place] [address] Performed By: #### 2 4356-8 ####[facility] [id number] [place] [address] [place] Leukocyte esterase Test strip Ql (U) Negative Normal Negative, 25 Patito/uL [facility] Comment on above: Order Comment: Speci men Type: URINE SPECIMENOrdering Facility: [facility] Address: [address] [place] [address] Performed By: #### 2 4356-8 ####[facility] [id number] [place] [address] [place] Nitrite Ql (U) Negative Normal Negative [facility] Comment on above: Order Comment: Speci men Type: URINE SPECIMENOrdering Facility: [facility] Address: [address] [place] [address] Performed By: #### 2 4356-8 ####[facility] [id number] [place] [id number] [place] pH (U) 7.5 [pH] Normal 5.0-8.0 [facility] Comment on above: Order Comment: Speci men Type: URINE SPECIMENOrdering Facility: [facility] Address: [address] [place] [address] Performed By: #### 2 4356-8 ####[facility] [id number] [place] [address] [place] Protein (U) [Mass/Vol] Trace Normal Trace, Negative [facility] Comment on above: Order Comment: Speci men Type: URINE SPECIMENOrdering Facility: [facility] Address: [address] [place] [address] Performed By: #### 2 4356-8 ####[facility] [id number] [place] [address] [place] RBC LM.HPF (Urine sed) [#/Area] 0-3 /HPF Normal 0-3 /HPF [facility] Comment on above: Order Comment: Speci men Type: URINE SPECIMENOrdering Facility: [facility] Address: [address] [place] [address] Performed By: #### 2 4356-8 ####[facility] [id number] [place] [address] [place] Specific gravity (U) [Rel density] <1.005 Low 1.005-1.030 [facility] Comment on above: Order Comment: Speci men Type: URINE SPECIMENOrdering Facility: [facility] Address: [address] [place] [address] Performed By: #### 2 4356-8 ####[facility] [id number] [place] [address] [place] Urobilinogen Ql (U) Normal Normal Normal [facility] Comment on above: Order Comment: Speci men Type: URINE SPECIMENOrdering Facility: [facility] Address: [address] [place] [address] Performed By: #### 2 4356-8 ####[facility] [id number] [place] [id number] [place] WBC LM.HPF (Urine sed) [#/Area] 0-5 /HPF Normal 0-5 /HPF [facility] Comment on above: Order Comment: Speci men Type: URINE SPECIMENOrdering Facility: [facility] Address: [address] [place] [address] Performed By: #### 2 4356-8 ####[facility] [id number] [place] [address] [place] XR CHEST 1V FRONTAL PORTon 0 08-04-2023 XR CHEST 1V FRONTAL PORT Normal [facility] Activated partial thrombopla stin time (aPTT) in platelet poor plasma by coagulation aOrdered By: Jeramy Cunningham on 07-31-2023 aPTT Coag (PPP) [Time] 27.0 s 25.1-36.5 [facility] Comment on above: A hematocrit value g reater than 55% may lead to inaccurate results in coagulation testing. Patients having hematocrit values >55% require a special collection tube for coagulation studies. Please contact the laboratory at [phone] for redraw instructions. Alanine aminotransferase [En zymatic activity/volume] in Serum or PlasmaOrdered By: Jeramy Cunningham on 07-31-2023 ALT [Catalytic activity/Vol] 29 U/L Normal 7-52 [facility] Comment on above: Performed By: #### A CORY ELIS, CUU #### [facility] [address] [place] [address] Albumin [Mass/volume] in Ser um or Plasma by Bromocresol green (BCG) dye binding methoOrdered By: Jeramy Cunningham on 07-31-2023 Albumin BCG dye [Mass/Vol] 4.0 g/dL 3.5-5.7 [facility] Alkaline phosphatase [Enzyma tic activity/volume] in Serum or PlasmaOrdered By: Jeramy Cunningham on 07-31-2023 ALP [Catalytic activity/Vol] 58 U/L Normal 34-104 [facility] Comment on above: Performed By: #### A CORY [facility], CUU #### [facility] [address] [place] [address] Aspartate aminotransferase [ Enzymatic activity/volume] in Serum or PlasmaOrdered By: Jeramy Cunningham on 07-31-2023 AST [Catalytic activity/Vol] 34 U/L Normal 13-39 [facility] Comment on above: Performed By: #### A CORY [facility], CUU #### [facility] [address] [place] [address] [place] Automated basophil %Ordered By: Jeramy Cunningham on 07-31-2023 Basophils/100 WBC (Bld) 0.6 % Normal . [facility] Comment on above: Performed By: #### A JOSESITO RAY, CUU #### [address] Automated basophil countOrde red By: Jeramy Cunningham on 07-31-2023 Basophils (Bld) [#/Vol] 0.0 10*3/uL Normal 0.0-0.2 [facility] Comment on above: Result Comment: PERF ORMED BY: [place] [address] PATHOLOGIST GOLD LEAF ROLLER BAUTISTA BAKER M.D. Performed By: #### A CORY ELIS, CUU #### [address] Automated blood monocyte cou ntOrdered By: Jeramy Cunningham on 07-31-2023 Monocytes (Bld) [#/Vol] 0.2 10*3/uL Normal 0.0-0.8 [facility] Comment on above: Performed By: #### A JOSESITO RAY, CUU #### [address] Automated eosinophil %Ordere d By: Jeramy Cunningham on 07-31-2023 Eosinophils/100 WBC (Bld) 0.2 % Normal . [facility] Comment on above: Performed By: #### A JOSESITO RAY, CUU #### [address] Automated eosinophil countOr dered By: Jeramy Cunningham on 07-31-2023 Eosinophils (Bld) [#/Vol] 0.0 10*3/uL Normal 0.0-0.45 [facility] Comment on above: Performed By: #### A CORY ELIS, CUU #### [address] Automated monocyte %Ordered By: Jeramy Cunningham on 07-31-2023 Monocytes/100 WBC (Bld) 3.1 % Normal . [facility] Comment on above: Performed By: #### A CORY CG, CUU #### [address] Automated neutrophil %Ordere d By: Jeramy Cunningham on 07-31-2023 Neutrophils/100 WBC (Bld) 84.9 % Normal . [facility] Comment on above: Performed By: #### A MALLORIEUAJESSICA, CG, CUU #### [address] Basic Metabolic Panelon 07-16 Creatinine Clr Calc Pharmacy 120.10 Normal [facility] Comment on above: Performed By: #### H EPATIC, MG, LIPASE, CMP, CBC #### [address] GFR/1.73 sq M.predicted MDRD (S/P/Bld) [Vol rate/Area] mL/min/{1.73_m2} Normal [facility] Comment on above: Performed By: #### H EPATIC, MG, LIPASE, CMP, CBC #### [address] Bilirubin Test strip Ql (U)O rdered By: Jeramy Cunningham on 07-31-2023 Bilirubin Ql (U) Negative Negative [facility] Bilirubin.direct [Mass/volum e] in Serum or PlasmaOrdered By: Jeramy Cunningham on 07-31-2023 Bilirubin.direct [Mass/Vol] 0.10 mg/dL 0.03-0.18 [facility] Bilirubin.total [Mass/volume ] in Serum or PlasmaOrdered By: Jeramy Cunningham on 07-31-2023 Bilirubin [Mass/Vol] 0.4 mg/dL Normal 0.3-1.0 [facility] Comment on above: Performed By: #### A CORY, [facility], CUU #### [address] abdomen pelvis w conon CT abdomen pelvis w [facility] [place] [address] [place] [address] CT Scan Report Signed Patient: Abbey Garcia MR#: [id number] : 1990 Acct:[id number] Age/Sex: 33 / F ADM Date: 07/31/23 Loc: ER Room: Type: [facility] ER Attending Dr: Copies to: Jeramy Cunningham [...] Jason Palomo M.D.07/31/2023 12:28 PM Dictation Location: [place] [address] Transcribed By: [facility] 07/31/23 1228 Dictated By: Jason Palomo DO 07/31/23 1223 Signed By: 07/31/23 1228 Normal [facility] Calcium [Mass/volume] in Ser um or PlasmaOrdered By: Jeramy Cunningham on 07-31-2023 Calcium [Mass/Vol] 8.5 mg/dL Low 8.6-10.3 [facility] Comment on above: Performed By: #### H EPATIC, MG, LIPASE, CMP, CBC #### [address] Carbon dioxide, total [Moles /volume] in Serum or PlasmaOrdered By: Jeramy Cunningham on 07-31-2023 CO2 [Moles/Vol] 26.1 mmol/L Normal 21.0-31.0 [facility] Comment on above: Performed By: #### H EPATIC, MG, LIPASE, CMP, CBC #### [address] Chloride [Moles/volume] in S elder or PlasmaOrdered By: Jeramy Cunningham on 07-31-2023 Chloride [Moles/Vol] 107 mmol/L Normal 98-107 [facility] Comment on above: Performed By: #### H EPATIC, MG, LIPASE, CMP, CBC #### [address] Color of Urine by AutoOrdere d By: Jeramy Cunningham on 07-31-2023 Color (U) Colorless Normal Yellow [facility] Comment on above: Order Comment: Name Collection Type:: Clean-Voided Midstream Performed By: #### H EPATIC, MG, LIPASE, CMP, CBC #### [address] Complete Blood Count Auto Di ffon 07-31-2023 Mean Corpuscular HGB Conc 33.8 g/dL Normal 32.0-35.0 [facility] Comment on above: Performed By: #### A DDONUAPLUS, UHCG, CUU #### [place] [address] [place] Monocytes/100 WBC (Bld) 14.62 % Normal 0.00-20.00 [facility] Comment on above: Performed By: #### A DDONUAPLUS, UHCG, CUU #### [place] [address] [place] NRBC% 0.1 /100{WBC} Normal 0-0.5 [facility] Comment on above: Performed By: #### A DDONUAPLUS, UHCG, CUU #### [address] Creatinine [Mass/volume] in Serum or PlasmaOrdered By: Jeramy Cunningham on 07-31-2023 Creatinine [Mass/Vol] 0.70 mg/dL Normal 0.60-1.20 [facility] Comment on above: Performed By: #### H EPATIC, MG, LIPASE, CMP, CBC #### [address] Erythrocyte distribution wid th [Ratio] by Automated countOrdered By: Jeramy Cunningham on 07-31-2023 Erythrocyte distribution width (RBC) [Ratio] 14.2 % Normal 11.9-15.3 [facility] Comment on above: Performed By: #### A DDONUAPLUS, UHCG, CUU #### [address] Erythrocytes [#/volume] in B lood by Automated countOrdered By: Jeramy Cunningham on 07-31-2023 RBC (Bld) [#/Vol] 3.75 10*6/uL Normal 3.60-5.00 [facility] Comment on above: Performed By: #### A DDONUAPLUS, UHCG, CUU #### [address] Glucose [Mass/volume] in Ser um or PlasmaOrdered By: Jeramy Cunningham on 07-31-2023 Glucose [Mass/Vol] 91 mg/dL Normal 70-100 [facility] Comment on above: ADA recommended refe rence rangeRandom Glucose Reference Range is dependent on time and content of last meal. Glucose of more than 200 mg/dL in a nonstressed, ambulatory subject supports the diagnosis of Diabetes Mellitus. Result Comment: [place] om Glucose Reference Range is dependent on time and content of last meal. Glucose of more than 200 mg/dL in a nonstressed, ambulatory subject supports the diagnosis of Diabetes Mellitus. ADA recommended reference range Performed By: #### H EPATIC, MG, LIPASE, CMP, CBC #### [facility] [address] [place] [address] Glucose [Mass/volume] in Uri ne by Test stripOrdered By: Jeramy Cunningham on 07-31-2023 Glucose Test strip (U) [Mass/Vol] Normal mg/dL Normal [facility] HCG ( test) IA.rapi d Ql (U)Ordered By: Jeramy Cunningham on 07-31-2023 HCG ( test) Ql (U) Negative [facility] HCG,Urineon 07-31-2023 Beta HCG ( test) Ql (U) Negative Normal [facility] Comment on above: Order Comment: Name Collection Type:: Clean-Voided Midstream Result Comment: PERF ORMED BY: [place] [address] PATHOLOGIST GOLD LEAF ROLLER BAUTISTA BAKER M.D. Performed By: #### H EPATIC, MG, LIPASE, CMP, CBC #### [address] Hematocrit [Volume Fraction] of Blood by Automated countOrdered By: Jeramy Cunningham on 07-31-2023 Hematocrit (Bld) [Volume fraction] 33.2 % Low 34.0-46.4 [facility] Comment on above: Performed By: #### A MALLORIEUAJESSICA, CG, CUU #### [address] Hemoglobin Test strip Ql (U) Ordered By: Jeramy Cunningham on 07-31-2023 Hemoglobin Ql (U) Negative Negative [facility] Hemoglobin [Mass/volume] in BloodOrdered By: Jeramy Cunningham on 07-31-2023 Hemoglobin (Bld) [Mass/Vol] 11.2 g/dL Low 11.8-15.4 [facility] Comment on above: Performed By: #### A DDFAIZAUAPLUS, UHCG, CUU #### [address] Hepatic Panelon 07-31-2023 Albumin [Mass/Vol] 4.0 g/dL Normal 3.5-5.7 [facility] Comment on above: Performed By: #### A DDONUAPLUS, UHCG, CUU #### [facility] [address] Bilirubin,Indirect 0.3 mg/dL Normal [facility] Comment on above: Performed By: #### A DDONUAPLUS, UHCG, CUU #### [facility] [address] Bilirubin.indirect [Mass/Vol] 0.10 mg/dL Normal 0.03-0.18 [facility] Comment on above: Performed By: #### A DDONUAPLUS, UHCG, CUU #### [facility] [address] INR in Platelet poor plasma by Coagulation assayOrdered By: Jeramy Cunningham on 07-31-2023 INR Coag (PPP) [Relative time] 1.1 {INR} Normal [facility] Comment on above: INR Therapeutic Rang [...] H EPATIC, MG, LIPASE, CMP, CBC #### [facility] [address] Ketones [Presence] in Urine by Test stripOrdered By: Jeramy Cunningham on 07-31-2023 Ketones Ql (U) Negative Normal Negative [facility] Comment on above: Order Comment: Name Collection Type:: Clean-Voided Midstream Performed By: #### H EPATIC, MG, LIPASE, CMP, CBC #### [facility] [address] [place] [address] Leukocyte esterase [Presence ] in Urine by Test stripOrdered By: Jeramy Cunningham on 07-31-2023 Leukocyte esterase Test strip Ql (U) Negative Normal Negative [facility] Comment on above: Order Comment: Name Collection Type:: Clean-Voided Midstream Performed By: #### H EPATIC, MG, LIPASE, CMP, CBC #### [facility] [address] Leukocytes [#/volume] correc darvin for nucleated erythrocytes in Blood by Automated counOrdered By: Jeramy Cunningham on 07-31-2023 WBC corrected for nucl RBC Auto (Bld) [#/Vol] 7.7 10*3/uL 3.8-11.6 [facility] Leukocytes [#/volume] in Blo od by Automated countOrdered By: Jeramy Cunningham on 07-31-2023 WBC (Bld) [#/Vol] 7.7 10*3/uL Normal 3.8-11.6 [facility] Comment on above: Performed By: #### A DDONUAPLUS, UHCG, CUU #### [address] Lipase [Enzymatic activity/v olume] in Serum or PlasmaOrdered By: Jeramy Cunningham on 07-31-2023 Lipase [Catalytic activity/Vol] 36.0 U/L Normal 11.0-82.0 [facility] Comment on above: Result Comment: PERF ORMED BY: [place] [address] PATHOLOGIST GOLD LEAF ROLLER BAUTISTA BAKER M.D. Performed By: #### H EPATIC, MG, LIPASE, CMP, CBC #### [address] Lymphocytes [#/volume] in Bl ood by Automated countOrdered By: Jeramy Cunningham on 07-31-2023 Lymphocytes (Bld) [#/Vol] 0.9 10*3/uL Low 1.00-4.8 [facility] Comment on above: Performed By: #### A CORY [facility], CUU #### [address] Lymphocytes/100 leukocytes i n Blood by Automated countOrdered By: Jeramy Cunningham on 07-31-2023 Lymphocytes/100 WBC (Bld) 11.2 % Normal . [facility] Comment on above: Performed By: #### A CORY [facility], CUU #### [address] MCH [Entitic mass] by Automa darvin countOrdered By: Jeramy Cunningham on 07-31-2023 MCH (RBC) [Entitic mass] 29.9 pg Normal 24.7-34.3 [facility] Comment on above: Performed By: #### A CORY ELIS, CUU #### [address] MCHC Auto (RBC) [Mass/Vol]Or dered By: Jeramy Cunningham on 07-31-2023 MCHC (RBC) [Mass/Vol] 33.8 g/dL 32.0-35.0 [facility] MCV [Entitic volume] by Auto mated countOrdered By: Jeramy Cunningham on 07-31-2023 MCV (RBC) [Entitic vol] 88.6 fL Normal 80-100 [facility] Comment on above: Performed By: #### A CORY [facility], CUU #### [address] Monocyte distribution width [Entitic volume] in Blood by AutomatedOrdered By: Jeramy Cunningham on 07-31-2023 Monocyte distribution width Auto (Bld) [Entitic vol] 14.62 % 0.00-20.00 [facility] Neutrophils [#/volume] in Bl ood by Automated countOrdered By: Jeramy Cunningham on 07-31-2023 Neutrophils (Bld) [#/Vol] 6.5 10*3/uL Normal 1.8-7.7 [facility] Comment on above: Performed By: #### A CORY ELIS, CUU #### [facility] [address] Nitrite Test strip Ql (U)Ord ered By: Jeramy Cunningham on 07-31-2023 Nitrite Ql (U) Negative Negative [facility] No Panel InformationOrdered By: Jeramy Cunningham on 07-31-2023 Estimated GFR (CKD-EPI) > 60.0 mL/Min [facility] Creatinine Clearance (Chem 120.10 [facility] Nucleated erythrocytes [Pres ence] in Blood by Automated countOrdered By: Jeramy Cunningham on 07-31-2023 Nucleated RBC Auto Ql (Bld) 0.1 /100{WBC} 0-0.5 [facility] Partial Thromboplastin Timeo n 07-31-2023 aPTT Coag (Bld) [Time] 27.0 s Normal 25.1-36.5 [facility] Comment on above: Result Comment: A he matocrit value greater than 55% may lead to inaccurate results in coagulation testing. Patients having hematocrit values >55% require a special collection tube for coagulation studies. Please contact the laboratory at [phone] for redraw instructions. PERFORMED BY: [address] [place] [address] PATHOLOGIST GOLD LEAF ROLLER BAUTISTA BAKER M.D. Performed By: #### H EPATIC, MG, LIPASE, CMP, CBC #### [facility] [address] [place] [address] [place] Platelet mean volume [Entiti c volume] in Blood by Automated countOrdered By: Jeramy Cunningham on 07-31-2023 Platelet mean volume (Bld) [Entitic vol] 8.5 fL Normal 6.3-10.7 [facility] Comment on above: Performed By: #### A JOSESITO RAY, CUU #### [place] [address] [place] Platelets [#/volume] in Bloo d by Automated countOrdered By: Jeramy Cunningham on 07-31-2023 Platelets (Bld) [#/Vol] 276 10*3/uL Normal 150-450 [facility] Comment on above: Performed By: #### A DDONUAPLUS, CG, CUU #### [facility] [address] Potassium [Moles/volume] in Serum or PlasmaOrdered By: Jeramy Cunningham on 07-31-2023 Potassium [Moles/Vol] 3.8 mmol/L Normal 3.5-5.1 [facility] Comment on above: Performed By: #### H EPATIC, MG, LIPASE, CMP, CBC #### [facility] [address] Protein Test strip (U) [Mass /Vol]Ordered By: Jeramy Cunningham on 07-31-2023 Protein (U) [Mass/Vol] Negative Negative [facility] Protein [Mass/volume] in Ser um or PlasmaOrdered By: Jeramy Cunningham on 07-31-2023 Protein [Mass/Vol] 6.7 g/dL Normal 6.4-8.9 [facility] Comment on above: Performed By: #### A DDONUAPLUS, CG, CUU #### [facility] [address] Prothrombin time (PT)Ordered By: Jeramy Cunningham on 07-31-2023 PT Coag (PPP) [Time] 12.3 s Normal 9.0-12.9 [facility] Comment on above: A hematocrit value g reater than 55% may lead to inaccurate results in coagulation testing. Patients having hematocrit values >55% require a special collection tube for coagulation studies. Please contact the laboratory at [phone] for redraw instructions. Result Comment: A he matocrit value greater than 55% may lead to inaccurate results in coagulation testing. Patients having hematocrit values >55% require a special collection tube for coagulation studies. Please contact the laboratory at [phone] for redraw instructions. Performed By: #### H EPATIC, MG, LIPASE, CMP, CBC #### [address] Serum globulin measurement b y calculation (mass/volume)Ordered By: Jeramy Cunningham on 07-31-2023 Globulin (S) [Mass/Vol] 2.7 g/dL Normal [facility] Comment on above: Performed By: #### [facility], CUU #### [address] Serum or plasma albumin/glob ulin mass ratioOrdered By: Jeramy Cunningham on 07-31-2023 Albumin/Globulin [Mass ratio] 1.5 {ratio} [facility] Comment on above: Performed By: #### [facility], CUU #### [address] Serum or plasma anion gap de terminationOrdered By: Jeramy Cunningham on 07-31-2023 Anion gap [Moles/Vol] 10.7 mmol/L Normal 6.0-15.0 [facility] Comment on above: Performed By: #### H EPATIC, MG, LIPASE, CMP, CBC #### [address] Serum or plasma non-glucuron idated bilirubin measurement (mass/volume)Ordered By: Jeramy Cunningham on 07-31-2023 Bilirubin.indirect [Mass/Vol] 0.3 mg/dL [facility] Sodium [Moles/volume] in Ser um or PlasmaOrdered By: Jeramy Cunningham on 07-31-2023 Sodium [Moles/Vol] 140 mmol/L Normal 136-145 [facility] Comment on above: Performed By: #### H EPATIC, MG, LIPASE, CMP, CBC #### [address] Specific gravity Test strip (U) [Rel density]Ordered By: Jeramy Cunningham on 07-31-2023 Specific gravity (U) [Rel density] 1.006 1.001-1.030 [facility] Urea nitrogen [Mass/volume] in Serum or PlasmaOrdered By: Jeramy Cunningham on 07-31-2023 Urea nitrogen [Mass/Vol] 16 mg/dL Normal 7-25 [facility] Comment on above: Performed By: #### H EPATIC, MG, LIPASE, CMP, CBC #### [address] Urinalysison 07-31-2023 Bilirubin,Urine Negative Normal Negative [facility] Comment on above: Order Comment: Name Collection Type:: Clean-Voided Midstream Performed By: #### H EPATIC, MG, LIPASE, CMP, CBC #### [address] Glucose Ql (U) Normal Normal Normal [facility] Comment on above: Order Comment: Name Collection Type:: Clean-Voided Midstream Performed By: #### H EPATIC, MG, LIPASE, CMP, CBC #### [address] Nitrite,Urine Negative Normal Negative [facility] Comment on above: Order Comment: Name Collection Type:: Clean-Voided Midstream Performed By: #### H EPATIC, MG, LIPASE, CMP, CBC #### [address] Occult Blood,Urine Negative Normal Negative [facility] Comment on above: Order Comment: Name Collection Type:: Clean-Voided Midstream Performed By: #### H EPATIC, MG, LIPASE, CMP, CBC #### [address] Protein,Urine Negative Normal Negative [facility] Comment on above: Order Comment: Name Collection Type:: Clean-Voided Midstream Performed By: #### H EPATIC, MG, LIPASE, CMP, CBC #### [address] Specificy [place],Urine 1.006 Normal 1.001-1.030 [facility] Comment on above: Order Comment: Name Collection Type:: Clean-Voided Midstream Performed By: #### H EPATIC, MG, LIPASE, CMP, CBC #### [address] Urobilinogen,Urine Normal Normal Normal [facility] Comment on above: Order Comment: Name Collection Type:: Clean-Voided Midstream Performed By: #### H EPATIC, MG, LIPASE, CMP, CBC #### [facility] [address] [place] [address] Urine appearanceOrdered By: Jeramy Cunningham on 07-31-2023 Appearance (U) Clear Normal Clear [facility] Comment on above: Order Comment: Name Collection Type:: Clean-Voided Midstream Performed By: #### H EPATIC, MG, LIPASE, CMP, CBC #### [facility] [address] [place] [address] Urobilinogen Test strip (U) [Mass/Vol]Ordered By: Jeramy Cunningham on 07-31-2023 Urobilinogen (U) [Mass/Vol] Normal mg/dL Normal [facility] pH of Urine by Test stripOrd ered By: Jeramy Cunningham on 07-31-2023 pH (U) 8.0 [pH] Normal 5.0-9.0 [facility] Comment on above: Order Comment: Name Collection Type:: Clean-Voided Midstream Performed By: #### H EPATIC, MG, LIPASE, CMP, CBC #### [facility] [address] [place] [address] CBC W Auto Differential pane l (Bld)on 07-30-2023 Basophils (Bld) [#/Vol] 0.04 10*3/uL Normal <0.11 [facility] Comment on above: Order Comment: Speci men Type: BLOOD SPECIMENOrdering Facility: [facility] Address: [address] [place] [address] Performed By: #### 5 7021-8 ####[facility] LABCLIA [id number] [place] [address] [place] Basophils/100 WBC (Bld) 0.4 % Normal [facility] Comment on above: Order Comment: Speci men Type: BLOOD SPECIMENOrdering Facility: [facility] Address: [address] [place] [address] Performed By: #### 5 7021-8 ####[facility] LABCLIA [id number] [place] [address] [place] Differential cell count method Nom (Bld) Auto Normal [facility] Comment on above: Order Comment: Speci men Type: BLOOD SPECIMENOrdering Facility: [facility] Address: [address] [place] [address] Performed By: #### 5 7021-8 ####[facility] LABCLIA [id number] [place] [address] [place] Eosinophils (Bld) [#/Vol] 0.05 10*3/uL Normal <0.46 [facility] Comment on above: Order Comment: Speci men Type: BLOOD SPECIMENOrdering Facility: [facility] Address: [address] [place] [address] Performed By: #### 5 7021-8 ####[facility] LABCLIA [id number] [place] [address] [place] Eosinophils/100 WBC (Bld) 0.5 % Normal [facility] Comment on above: Order Comment: Speci men Type: BLOOD SPECIMENOrdering Facility: [facility] Address: [address] [place] [address] Performed By: #### 5 7021-8 ####[facility] LABCLIA [id number] [place] [address] [place] Erythrocyte distribution width (RBC) [Ratio] 13.0 % Normal 11.5-15.0 [facility] Comment on above: Order Comment: Speci men Type: BLOOD SPECIMENOrdering Facility: [facility] Address: [address] [place] [address] Performed By: #### 5 7021-8 ####[facility] LABCLIA [id number] [place] [address] [place] Hematocrit (Bld) [Volume fraction] 33.7 % Low 36.0-46.0 [facility] Comment on above: Order Comment: Speci men Type: BLOOD SPECIMENOrdering Facility: [facility] Address: [address] [place] [address] Performed By: #### 5 7021-8 ####[facility] LABCLIA [id number] [place] [address] [place] Hemoglobin (Bld) [Mass/Vol] 11.1 g/dL Low 11.5-15.5 [facility] Comment on above: Order Comment: Speci men Type: BLOOD SPECIMENOrdering Facility: [facility] Address: [address] [place] [address] Performed By: #### 5 7021-8 ####[facility] LABCLIA [id number] [place] [address] [place] Immature granulocytes (Bld) [#/Vol] 0.03 10*3/uL Normal <0.10 [facility] Comment on above: Order Comment: Speci men Type: BLOOD SPECIMENOrdering Facility: [facility] Address: [address] [place] [address] Performed By: #### 5 7021-8 ####[facility] LABCLIA [id number] [place] [address] [place] Immature granulocytes/100 WBC (Bld) 0.3 % Normal [facility] Comment on above: Order Comment: Speci men Type: BLOOD SPECIMENOrdering Facility: [facility] Address: [address] [place] [address] Performed By: #### 5 7021-8 ####[facility] LABCLIA [id number] [place] [address] [place] Lymphocytes (Bld) [#/Vol] 2.10 10*3/uL Normal 1.00-4.00 [facility] Comment on above: Order Comment: Speci men Type: BLOOD SPECIMENOrdering Facility: [facility] Address: [address] [place] [address] Performed By: #### 5 7021-8 ####[facility] LABCLIA [id number] [place] [address] [place] Lymphocytes/100 WBC (Bld) 22.0 % Normal [facility] Comment on above: Order Comment: Speci men Type: BLOOD SPECIMENOrdering Facility: [facility] Address: [address] [place] [address] Performed By: #### 5 7021-8 ####[facility] LABIA [id number] [place] [address] [place] MCH (RBC) [Entitic mass] 29.8 pg Normal 26.0-34.0 [facility] Comment on above: Order Comment: Speci men Type: BLOOD SPECIMENOrdering Facility: [facility] Address: [address] [place] [address] Performed By: #### 5 7021-8 ####[facility] LABIA [id number] [place] [address] [place] MCHC (RBC) [Mass/Vol] 32.9 g/dL Normal 30.5-36.0 [facility] Comment on above: Order Comment: Speci men Type: BLOOD SPECIMENOrdering Facility: [facility] Address: [address] [place] [address] Performed By: #### 5 7021-8 ####[facility] LABIA [id number] [place] [address] [place] MCV (RBC) [Entitic vol] 90.3 fL Normal 80.0-100.0 [facility] Comment on above: Order Comment: Speci men Type: BLOOD SPECIMENOrdering Facility: [facility] Address: [address] [place] [address] Performed By: #### 5 7021-8 ####[facility] LABIA [id number] [place] [address] [place] Monocytes (Bld) [#/Vol] 0.57 10*3/uL Normal <0.87 [facility] Comment on above: Order Comment: Speci men Type: BLOOD SPECIMENOrdering Facility: [facility] Address: [address] [place] [address] Performed By: #### 5 7021-8 ####[facility] LABCLIA [id number] [place] [address] [place] Monocytes/100 WBC (Bld) 6.0 % Normal [facility] Comment on above: Order Comment: Speci men Type: BLOOD SPECIMENOrdering Facility: [facility] Address: [address] [place] [address] Performed By: #### 5 7021-8 ####[facility] LABCLIA [id number] [place] [address] [place] Neutrophils (Bld) [#/Vol] 6.74 10*3/uL Normal 1.45-7.50 [facility] Comment on above: Order Comment: Speci men Type: BLOOD SPECIMENOrdering Facility: [facility] Address: [address] [place] [address] Performed By: #### 5 7021-8 ####[facility] LABCLIA [id number] [place] [address] [place] Neutrophils/100 WBC (Bld) 70.8 % Normal [facility] Comment on above: Order Comment: Speci men Type: BLOOD SPECIMENOrdering Facility: [facility] Address: [address] [place] [address] Performed By: #### 5 7021-8 ####[facility] LABCLIA [id number] [place] [id number] [place] Nucleated RBC (Bld) [#/Vol] 10*3/uL Normal <0.01 [facility] Comment on above: Order Comment: Speci men Type: BLOOD SPECIMENOrdering Facility: [facility] Address: [address] [place], [place] [address] Performed By: #### 5 7021-8 ####[facility] LABCLIA [id number] [place] [address] [place] Nucleated RBC/100 WBC (Bld) [Ratio] 0.0 /100 WBC Normal [facility] Comment on above: Order Comment: Speci men Type: BLOOD SPECIMENOrdering Facility: [facility] Address: [address] [place] [address] Performed By: #### 5 7021-8 ####[facility] LABIA [id number] [place] [address] [place] Platelet mean volume (Bld) [Entitic vol] 10.3 fL Normal 9.0-12.7 [facility] Comment on above: Order Comment: Speci men Type: BLOOD SPECIMENOrdering Facility: [facility] Address: [address] [place] [address] Performed By: #### 5 7021-8 ####[facility] [id number] [place] [address] [place] Platelets (Bld) [#/Vol] 258 10*3/uL Normal 150-400 [facility] Comment on above: Order Comment: Speci men Type: BLOOD SPECIMENOrdering Facility: [facility] Address: [address] [place] [address] Performed By: #### 5 7021-8 ####[facility] LABVER[facility] [id number] [place] [address] [place] RBC (Bld) [#/Vol] 3.73 10*6/uL Low 3.90-5.20 [facility] Comment on above: Order Comment: Speci men Type: BLOOD SPECIMENOrdering Facility: [facility] Address: [address] [place] [address] Performed By: #### 5 7021-8 ####[facility] LABIA [id number] [place] [address] [place] WBC (Bld) [#/Vol] 9.53 10*3/uL Normal 3.70-11.00 [facility] Comment on above: Order Comment: Speci men Type: BLOOD SPECIMENOrdering Facility: [facility] Address: [address] [place] [address] Performed By: #### 5 7021-8 ####[facility] LABCLIA [id number] [place] [address] [place] Comprehensive metabolic 2000 panelon 07-30-2023 Albumin [Mass/Vol] 4.0 g/dL Normal 3.9-4.9 [place] Comment on above: Order Comment: Speci men Type: BLOOD SPECIMENOrdering Facility: [facility] Address: [address] [place] [address] Performed By: #### 2 4323-8 ####[facility] LABCLIA [id number] [place] [address] [place] ALP [Catalytic activity/Vol] 64 U/L Normal 34-123 [facility] Comment on above: Order Comment: Speci men Type: BLOOD SPECIMENOrdering Facility: [facility] Address: [address] [place] [address] Performed By: #### 2 4323-8 ####[facility] LABCLIA [id number] [place] [address] [place] ALT [Catalytic activity/Vol] 30 U/L Normal 7-38 [facility] Comment on above: Order Comment: Speci men Type: BLOOD SPECIMENOrdering Facility: [facility] Address: [address] [place] [address] Performed By: #### 2 4323-8 ####[facility] LABCLIA [id number] [place] [address] [place] Anion gap [Moles/Vol] 12 mmol/L Normal 8-15 [facility] Comment on above: Order Comment: Speci men Type: BLOOD SPECIMENOrdering Facility: [facility] Address: [address] [place] [address] Performed By: #### 2 4323-8 ####[facility] LABCLIA [id number] [place] [address] [place] AST [Catalytic activity/Vol] 30 U/L Normal 13-35 [facility] Comment on above: Order Comment: Speci men Type: BLOOD SPECIMENOrdering Facility: [facility] Address: [address] [place] [address] Performed By: #### 2 4323-8 ####[facility] LABCLIA [id number] [place] [address] [place] Bilirubin [Mass/Vol] 0.2 mg/dL Normal 0.2-1.3 [facility] Comment on above: Order Comment: Speci men Type: BLOOD SPECIMENOrdering Facility: [facility] Address: [address] [place] [address] Performed By: #### 2 4323-8 ####[facility] LABCLIA [id number] [place] [address] [place] Calcium [Mass/Vol] 8.7 mg/dL Normal 8.5-10.2 [place] Comment on above: Order Comment: Speci men Type: BLOOD SPECIMENOrdering Facility: [facility] Address: [address] [place] [address] Performed By: #### 2 4323-8 ####[facility] LABCLIA [id number] [place] [address] [place] Chloride [Moles/Vol] 105 mmol/L Normal 98-107 [facility] Comment on above: Order Comment: Speci men Type: BLOOD SPECIMENOrdering Facility: [facility] Address: [address] [place], [place] [address] Performed By: #### 2 4323-8 ####[facility] LABCLIA [id number] [place] [id number] [place] CO2 [Moles/Vol] 22 mmol/L Normal 22-30 [facility] Comment on above: Order Comment: Speci men Type: BLOOD SPECIMENOrdering Facility: [facility] Address: [address] [place] [address] Performed By: #### 2 4323-8 ####[facility] LABCLIA [id number] [place] [id number] [place] Creatinine [Mass/Vol] 0.59 mg/dL Normal 0.58-0.96 [facility] Comment on above: Order Comment: Speci men Type: BLOOD SPECIMENOrdering Facility: [facility] Address: [address] [place] [address] Performed By: #### 2 4323-8 ####[facility] LABCLIA [id number] [place] [address] [place] Creatinine and Glomerular filtration rate.predicted panel (S/P/Bld) 121 mL/min/1.73m??? Normal >=60 [facility] Comment on above: Order Comment: Speci men Type: BLOOD SPECIMENOrdering Facility: [facility] Address: [address] [place] [address] Result Comment: Jessica mated Glomerular Filtration Rate [...] ####[facility] LABCLIA [id number] [place] [address] [place] Glucose [Mass/Vol] 88 mg/dL Normal 74-99 [place] Comment on above: Order Comment: Speci men Type: BLOOD SPECIMENOrdering Facility: [facility] Address: [address] [place] [address] Result Comment: The [place] [employer] (ADA) provides guidance for cutoff [...] Standards of Medical Care in Diabetes 2016, [place] [employer]. Diabetes Care. 2016.39(Suppl 1). Performed By: #### 2 4323-8 ####[facility] LABCLIA [id number] [place] [address] [place] Potassium [Moles/Vol] 4.0 mmol/L Normal 3.7-5.1 [facility] Comment on above: Order Comment: Speci men Type: BLOOD SPECIMENOrdering Facility: [facility] Address: [address] [place] [address] Performed By: #### 2 4323-8 ####[facility] LABIA [id number] [place] [address] [place] Protein [Mass/Vol] 6.5 g/dL Normal 6.3-8.0 [place] Comment on above: Order Comment: Speci men Type: BLOOD SPECIMENOrdering Facility: [facility] Address: [address] [place] [address] Performed By: #### 2 4323-8 ####[facility] LABCLIA [id number] [place] [address] [place] Sodium [Moles/Vol] 139 mmol/L Normal 136-144 [place] Comment on above: Order Comment: Speci men Type: BLOOD SPECIMENOrdering Facility: [facility] Address: [address] [place] [address] Performed By: #### 2 4323-8 ####[facility] LABCLIA [id number] [place] [id number] [place] Urea nitrogen [Mass/Vol] 13 mg/dL Normal 7-21 [facility] Comment on above: Order Comment: Speci men Type: BLOOD SPECIMENOrdering Facility: [facility] Address: [address] [place] [address] Performed By: #### 2 4323-8 ####[facility] LABCLIA [id number] [place] [address] [place] Basic metabolic 2000 panelon 07-20-2023 Anion gap [Moles/Vol] 14 mmol/L Normal 9-18 [facility] Comment on above: Order Comment: Speci men Type: BLOOD SPECIMENOrdering Facility: [facility] Address: [address] [place] [address] Performed By: #### 2 4321-2, , 2776-02 ####[facility]ORYCLIA [id number] [place] [id number] [place] Calcium [Mass/Vol] 8.9 mg/dL Normal 8.5-10.2 [facility] Comment on above: Order Comment: Speci men Type: BLOOD SPECIMENOrdering Facility: [facility] Address: [address] [place] [address] Performed By: #### 2 4321-2, , 2776-02 ####[facility] LABORATORYCLIA [id number] [place] [id number] [place] Chloride [Moles/Vol] 110 mmol/L High 97-105 [facility] Comment on above: Order Comment: Speci men Type: BLOOD SPECIMENOrdering Facility: [facility] Address: [address] [place] [address] Performed By: #### 2 4321-2, , 2776-02 ####[facility] LABORATORYCLIA [id number] [place] [id number] [place] CO2 [Moles/Vol] 19 mmol/L Low 22-30 [facility] Comment on above: Order Comment: Speci men Type: BLOOD SPECIMENOrdering Facility: [facility] Address: [address] [place] [address] Performed By: #### 2 4321-2, , 2776-02 ####[facility] LABORATORYCLIA [id number] [place] [id number] [place] [facility] Creatinine [Mass/Vol] 0.76 mg/dL Normal 0.58-0.96 [facility] Comment on above: Order Comment: Geraldo men Type: BLOOD SPECIMENOrdering Facility: [facility] Address: [address] [place] [address] Performed By: #### 2 4321-2, , 2776-02 ####[facility] LABORATORYCLIA [id number] [place] [id number] [facility] Creatinine and Glomerular filtration rate.predicted panel (S/P/Bld) 106 mL/min/1.73m??? Normal >=60 [facility] Comment on above: Order Comment: Geraldo marrero Type: BLOOD SPECIMENOrdering Facility: [facility] Address: [address] [place] [address] Result Comment: Jessica mated Glomerular Filtration Rate [...] Performed By: #### 2 4321-2, , 2776-02 ####[facility] LABORATORYCLIA [id number] [place] [id number] [place] Glucose [Mass/Vol] 97 mg/dL Normal 74-99 [facility] Comment on above: Order Comment: Geraldo marrero Type: BLOOD SPECIMENOrdering Facility: [facility] Address: [address] [place] [address] Result Comment: The [place] [employer] (ADA) provides guidance for cutoff [...] Standards of Medical Care in Diabetes 2016, [place] [employer]. Diabetes Care. 2016.39(Suppl 1). Performed By: #### 2 4321-2, , 2776-02 ####[facility] LABORATORYCLIA [id number] [place] [address] [place] Potassium [Moles/Vol] 4.0 mmol/L Normal 3.7-5.1 [facility] Comment on above: Order Comment: Geraldo marrero Type: BLOOD SPECIMENOrdering Facility: [facility] Address: [address] [place] [address] Performed By: #### 2 4321-2, , 2776-02 ####[facility] LABORATORYCLIA [id number] [place] [id number] [place] Sodium [Moles/Vol] 143 mmol/L Normal 136-144 [facility] Comment on above: Order Comment: Geraldo marrero Type: BLOOD SPECIMENOrdering Facility: [facility] Address: [address] [place] [address] Performed By: #### 2 4321-2, , 2776-02 ####[facility] LABORATORYCLIA [id number] [place] [id number] [place] Urea nitrogen [Mass/Vol] 8 mg/dL Normal 7-21 [facility] Comment on above: Order Comment: Geraldo marrero Type: BLOOD SPECIMENOrdering Facility: [facility] Address: [address] [place] [address] Performed By: #### 2 4321-2, , 2776-02 ####[facility] LABORATORYCLIA [id number] [place] [address] [place] CASE MANAGEMon 07-20-2023 CASE MANAGEM Normal [facility] CBC W Auto Differential pane l (Bld)on 07-20-2023 Basophils (Bld) [#/Vol] 10*3/uL Normal <0.11 [facility] Comment on above: Order Comment: Speci men Type: BLOOD SPECIMENOrdering Facility: [facility] Address: [address] [place] [address] Performed By: #### 5 7021-8 ####[facility] LABORATORYCLIA [id number] [place] [id number] [place] Basophils/100 WBC (Bld) 0.4 % Normal [facility] Comment on above: Order Comment: Speci men Type: BLOOD SPECIMENOrdering Facility: [facility] Address: [address] [place] [address] Performed By: #### 5 7021-8 ####[facility] LABORATORYCLIA [id number] [place] [address] [place] Differential cell count method Nom (Bld) Auto Normal [facility] Comment on above: Order Comment: Speci men Type: BLOOD SPECIMENOrdering Facility: [facility] Address: [address] [place] [address] Performed By: #### 5 7021-8 ####[facility] LABORATORYCLIA [id number] [place] [address] [place] Eosinophils (Bld) [#/Vol] 0.19 10*3/uL Normal <0.46 [facility] Comment on above: Order Comment: Speci men Type: BLOOD SPECIMENOrdering Facility: [facility] Address: [address] [place] [address] Performed By: #### 5 7021-8 ####[facility] LABORATORYCLIA [id number] [place] [id number] [place] Eosinophils/100 WBC (Bld) 3.8 % Normal [facility] Comment on above: Order Comment: Speci men Type: BLOOD SPECIMENOrdering Facility: [facility] Address: [address] [place] [address] Performed By: #### 5 7021-8 ####[facility] LABORATORYCLIA [id number] [place] [address] [place] Erythrocyte distribution width (RBC) [Ratio] 12.8 % Normal 11.5-15.0 [facility] Comment on above: Order Comment: Speci men Type: BLOOD SPECIMENOrdering Facility: [facility] Address: [address] [place] [address] Performed By: #### 5 7021-8 ####[facility] LABORATORYCLIA [id number] [place] [address] [place] Hematocrit (Bld) [Volume fraction] 31.6 % Low 36.0-46.0 [facility] Comment on above: Order Comment: Speci men Type: BLOOD SPECIMENOrdering Facility: [facility] Address: [address] [place] [address] Performed By: #### 5 7021-8 ####[facility] LABORATORYCLIA [id number] [place] [address] [place] Hemoglobin (Bld) [Mass/Vol] 10.5 g/dL Low 11.5-15.5 [facility] Comment on above: Order Comment: Speci men Type: BLOOD SPECIMENOrdering Facility: [facility] Address: [address] [place] [address] Performed By: #### 5 7021-8 ####[facility] LABORATORYCLIA [id number] [place] [address] [place] Immature granulocytes (Bld) [#/Vol] 10*3/uL Normal <0.10 [facility] Comment on above: Order Comment: Speci men Type: BLOOD SPECIMENOrdering Facility: [facility] Address: [address] [place] [address] Performed By: #### 5 7021-8 ####[facility] LABORATORYCLIA [id number] [address] [place] Immature granulocytes/100 WBC (Bld) 0.2 % Normal [facility] Comment on above: Order Comment: Speci men Type: BLOOD SPECIMENOrdering Facility: [facility] Address: [address] [place] [address] Performed By: #### 5 7021-8 ####[facility] LABORATORYCLIA [id number] [place] [address] [place] Lymphocytes (Bld) [#/Vol] 0.99 10*3/uL Low 1.00-4.00 [facility] Comment on above: Order Comment: Speci men Type: BLOOD SPECIMENOrdering Facility: [facility] Address: [address] [place] [address] Performed By: #### 5 7021-8 ####[facility] LABORATORYCLIA [id number] [place] [address] [place] Lymphocytes/100 WBC (Bld) 19.8 % Normal [facility] Comment on above: Order Comment: Speci men Type: BLOOD SPECIMENOrdering Facility: [facility] Address: [address] [place] [address] Performed By: #### 5 7021-8 ####[facility] LABORATORYCLIA [id number] [place] [address] [place] MCH (RBC) [Entitic mass] 30.2 pg Normal 26.0-34.0 [facility] Comment on above: Order Comment: Speci men Type: BLOOD SPECIMENOrdering Facility: [facility] Address: [address] [place] [address] Performed By: #### 5 7021-8 ####[facility] LABORATORYCLIA [id number] [address] [place] MCHC (RBC) [Mass/Vol] 33.2 g/dL Normal 30.5-36.0 [facility] Comment on above: Order Comment: Speci men Type: BLOOD SPECIMENOrdering Facility: [facility] Address: [address] [place] [address] Performed By: #### 5 7021-8 ####[facility] LABORATORYCLIA [id number] [address] [place] MCV (RBC) [Entitic vol] 90.8 fL Normal 80.0-100.0 [facility] Comment on above: Order Comment: Speci men Type: BLOOD SPECIMENOrdering Facility: [facility] Address: [address] [place], [place] [address] Performed By: #### 5 7021-8 ####[facility] LABORATORYCLIA [id number] [place] [id number] [place] Monocytes (Bld) [#/Vol] 0.32 10*3/uL Normal <0.87 [facility] Comment on above: Order Comment: Speci men Type: BLOOD SPECIMENOrdering Facility: [facility] Address: [address] [place] [address] Performed By: #### 5 7021-8 ####[facility] LABORATORYCLIA [id number] [place] [id number] [place] Monocytes/100 WBC (Bld) 6.4 % Normal [facility] Comment on above: Order Comment: Speci men Type: BLOOD SPECIMENOrdering Facility: [facility] Address: [address] [place] [address] Performed By: #### 5 7021-8 ####[facility] LABORATORYCLIA [id number] [place] [address] [place] Neutrophils (Bld) [#/Vol] 3.47 10*3/uL Normal 1.45-7.50 [facility] Comment on above: Order Comment: Speci men Type: BLOOD SPECIMENOrdering Facility: [facility] Address: [address] [place] [address] Performed By: #### 5 7021-8 ####[facility] LABORATORYCLIA [id number] [place] [id number] [place] Neutrophils/100 WBC (Bld) 69.4 % Normal [facility] Comment on above: Order Comment: Speci men Type: BLOOD SPECIMENOrdering Facility: [facility] Address: [address] [place] [address] Performed By: #### 5 7021-8 ####[facility] LABORATORYCLIA [id number] [place] [id number] [place] Nucleated RBC (Bld) [#/Vol] 10*3/uL Normal <0.01 [facility] Comment on above: Order Comment: Speci men Type: BLOOD SPECIMENOrdering Facility: [facility] Address: [address] [place] [address] Performed By: #### 5 7021-8 ####[facility] LABORATORYCLIA [id number] [place] [id number] [place] Nucleated RBC/100 WBC (Bld) [Ratio] 0.0 /100 WBC Normal [facility] Comment on above: Order Comment: Speci men Type: BLOOD SPECIMENOrdering Facility: [facility] Address: [address] [place] [address] Performed By: #### 5 7021-8 ####[facility] LABORATORYCLIA [id number] [place] [id number] [place] Platelet mean volume (Bld) [Entitic vol] 11.1 fL Normal 9.0-12.7 [facility] Comment on above: Order Comment: Speci men Type: BLOOD SPECIMENOrdering Facility: [facility] Address: [address] [place] [address] Performed By: #### 5 7021-8 ####[facility] LABORATORYCLIA [id number] [place] [address] [place] Platelets (Bld) [#/Vol] 225 10*3/uL Normal 150-400 [facility] Comment on above: Order Comment: Speci men Type: BLOOD SPECIMENOrdering Facility: [facility] Address: [address] [place] [address] Performed By: #### 5 7021-8 ####[facility] LABORATORYCLIA [id number] [place] [id number] [place] RBC (Bld) [#/Vol] 3.48 10*6/uL Low 3.90-5.20 [facility] Comment on above: Order Comment: Speci men Type: BLOOD SPECIMENOrdering Facility: [facility] Address: [address] [place] [address] Performed By: #### 5 7021-8 ####[facility] LABORATORYCLIA [id number] [place] [id number] [place] WBC (Bld) [#/Vol] 5.00 10*3/uL Normal 3.70-11.00 [facility] Comment on above: Order Comment: Speci men Type: BLOOD SPECIMENOrdering Facility: [facility] Address: [address] [place] [address] Performed By: #### 5 7021-8 ####[facility] LABORATORYCLIA [id number] [place] [id number] [place] CNDSon 07-20-2023 CNDS Normal [facility] Magnesium SerPl-mCncon 07-19 Magnesium [Mass/Vol] 2.1 mg/dL Normal 1.7-2.3 [facility] Comment on above: Order Comment: Speci men Type: BLOOD SPECIMENOrdering Facility: [facility] Address: [address] [place] [address] Performed By: #### 2 4321-2, , 2776-02 ####[facility] LABORATORYCLIA [id number] [place] [id number] [place] NURSING PROGon 07-20-2023 NURSING PROG Normal [facility] Phosphate SerPl-mCncon 07-19 Phosphate [Mass/Vol] 4.2 mg/dL Normal 2.7-4.8 [facility] Comment on above: Order Comment: Speci men Type: BLOOD SPECIMENOrdering Facility: [facility] Address: [address] [place] [address] Performed By: #### 2 4321-2, , 2776-02 ####[facility] LABORATORYCLIA [id number] [place] [id number] [place] Basic metabolic 2000 panelon 07-19-2023 Anion gap [Moles/Vol] 9 mmol/L Normal 9-18 [facility] Comment on above: Order Comment: Speci men Type: BLOOD SPECIMENOrdering Facility: [facility] Address: [address] [place] [address] Performed By: #### 2 4321-2, , 2776-02 ####[facility] LABORATORYCLIA [id number] [place] [id number] [place] Calcium [Mass/Vol] 8.7 mg/dL Normal 8.5-10.2 [facility] Comment on above: Order Comment: Speci men Type: BLOOD SPECIMENOrdering Facility: [facility] Address: [address] [place] [address] Performed By: #### 2 4321-2, , 2776-02 ####[facility] LABORATORYCLIA [id number] [place] [id number] [place] Chloride [Moles/Vol] 107 mmol/L High 97-105 [facility] Comment on above: Order Comment: Speci men Type: BLOOD SPECIMENOrdering Facility: [facility] Address: [address] [place] [address] Performed By: #### 2 4321-2, , 2776-02 ####[facility] LABORATORYCLIA [id number] [place] [id number] [place] CO2 [Moles/Vol] 23 mmol/L Normal 22-30 [facility] Comment on above: Order Comment: Speci men Type: BLOOD SPECIMENOrdering Facility: [facility] Address: [address] [place] [address] Performed By: #### 2 4321-2, , 2776-02 ####[facility] LABORATORYCLIA [id number] [place] [id number] [place] Creatinine [Mass/Vol] 0.75 mg/dL Normal 0.58-0.96 [facility] Comment on above: Order Comment: Speci men Type: BLOOD SPECIMENOrdering Facility: [facility] Address: [address] [place] [address] Performed By: #### 2 4321-2, , 2776-02 ####[facility] LABORATORYCLIA [id number] [place] [id number] [place] Creatinine and Glomerular filtration rate.predicted panel (S/P/Bld) 107 mL/min/1.73m??? Normal >=60 [facility] Comment on above: Order Comment: Speci men Type: BLOOD SPECIMENOrdering Facility: [facility] Address: [address] [place] [address] Result Comment: Jessica mated Glomerular Filtration Rate [...] Performed By: #### 2 4321-2, , 2776-02 ####[facility] LABORATORYCLIA [id number] [place] [id number] [place] Glucose [Mass/Vol] 81 mg/dL Normal 74-99 [facility] Comment on above: Order Comment: Geraldo marrero Type: BLOOD SPECIMENOrdering Facility: [facility] Address: [address] [place] [address] Result Comment: The [place] [employer] (ADA) provides guidance for cutoff [...] Standards of Medical Care in Diabetes 2016, [place] [employer]. Diabetes Care. 2016.39(Suppl 1). Performed By: #### 2 4321-2, , 2776-02 ####[facility] LABORATORYCLIA [id number] [place] [id number] [place] Potassium [Moles/Vol] 3.9 mmol/L Normal 3.7-5.1 [facility] Comment on above: Order Comment: Geraldo marrero Type: BLOOD SPECIMENOrdering Facility: [facility] Address: [address] [place] [id number] Performed By: #### 2 4321-2, , 2776-02 ####[facility] LABORATORYCLIA [id number] [place] [id number] [place] Sodium [Moles/Vol] 139 mmol/L Normal 136-144 [facility] Comment on above: Order Comment: Speci men Type: BLOOD SPECIMENOrdering Facility: [facility] Address: [address] [place] [address] Performed By: #### 2 4321-2, 65074-9, 2777-1 ####[facility] LABORATORYCLIA [id number] [place] [id number] [place] Urea nitrogen [Mass/Vol] 6 mg/dL Low 7-21 [facility] Comment on above: Order Comment: Speci men Type: BLOOD SPECIMENOrdering Facility: [facility] Address: [address] [place] [address] Performed By: #### 2 4321-2, 00593-5, 2777-1 ####[facility] LABORATORYCLIA [id number] [place] [id number] [place] CASE MGT INIT ASSESon 2023 CASE MGT INIT ASSES Normal [facility] CBC W Auto Differential pane l (Bld)on 07-19-2023 Basophils (Bld) [#/Vol] 0.04 10*3/uL Normal <0.11 [facility] Comment on above: Order Comment: Speci men Type: BLOOD SPECIMENOrdering Facility: [facility] Address: [address] [place] [address] Performed By: #### 5 7021-8 ####[facility] LABORATORYCLIA [id number] [place] [id number] [place] Basophils/100 WBC (Bld) 1.3 % Normal [facility] Comment on above: Order Comment: Speci men Type: BLOOD SPECIMENOrdering Facility: [facility] Address: [address] [place] [address] Performed By: #### 5 7021-8 ####[facility] LABORATORYCLIA [id number] [place] [id number] [place] Differential cell count method Nom (Bld) Auto Normal [facility] Comment on above: Order Comment: Speci men Type: BLOOD SPECIMENOrdering Facility: [facility] Address: [address] [place] [address] Performed By: #### 5 7021-8 ####[facility] LABORATORYCLIA [id number] [place] [address] [place] Eosinophils (Bld) [#/Vol] 0.28 10*3/uL Normal <0.46 [facility] Comment on above: Order Comment: Speci men Type: BLOOD SPECIMENOrdering Facility: [facility] Address: [address] [place] [address] Performed By: #### 5 7021-8 ####[facility] LABORATORYCLIA [id number] [address] Eosinophils/100 WBC (Bld) 9.1 % Normal [facility] Comment on above: Order Comment: Speci men Type: BLOOD SPECIMENOrdering Facility: [facility] Address: [address] [place] [address] Performed By: #### 5 7021-8 ####[facility] LABORATORYCLIA [id number] [address] [place] Erythrocyte distribution width (RBC) [Ratio] 12.6 % Normal 11.5-15.0 [facility] Comment on above: Order Comment: Speci men Type: BLOOD SPECIMENOrdering Facility: [facility] Address: [address] [place] [address] Performed By: #### 5 7021-8 ####[facility] LABORATORYCLIA [id number] [place] [id number] [place] Hematocrit (Bld) [Volume fraction] 29.7 % Low 36.0-46.0 [facility] Comment on above: Order Comment: Speci men Type: BLOOD SPECIMENOrdering Facility: [facility] Address: [address] [place] [address] Performed By: #### 5 7021-8 ####[facility] LABORATORYCLIA [id number] [place] [address] [place] Hemoglobin (Bld) [Mass/Vol] 10.0 g/dL Low 11.5-15.5 [facility] Comment on above: Order Comment: Speci men Type: BLOOD SPECIMENOrdering Facility: [facility] Address: [address] [place] [address] Performed By: #### 5 7021-8 ####[facility] LABORATORYCLIA [id number] [place] [id number] [place] Immature granulocytes (Bld) [#/Vol] 10*3/uL Normal <0.10 [facility] Comment on above: Order Comment: Speci men Type: BLOOD SPECIMENOrdering Facility: [facility] Address: [address] [place] [address] Performed By: #### 5 7021-8 ####[facility] LABORATORYCLIA [id number] [place] [address] [place] Immature granulocytes/100 WBC (Bld) 0.3 % Normal [facility] Comment on above: Order Comment: Speci men Type: BLOOD SPECIMENOrdering Facility: [facility] Address: [address] [place] [address] Performed By: #### 5 7021-8 ####[facility] LABORATORYCLIA [id number] [place] [address] [place] Lymphocytes (Bld) [#/Vol] 1.18 10*3/uL Normal 1.00-4.00 [facility] Comment on above: Order Comment: Speci men Type: BLOOD SPECIMENOrdering Facility: [facility] Address: [address] [place] [address] Performed By: #### 5 7021-8 ####[facility] LABORATORYCLIA [id number] [place] [id number] [place] Lymphocytes/100 WBC (Bld) 38.2 % Normal [facility] Comment on above: Order Comment: Speci men Type: BLOOD SPECIMENOrdering Facility: [facility] Address: [address] [place] [address] Performed By: #### 5 7021-8 ####[facility] LABORATORYCLIA [id number] [address] [facility] MCH (RBC) [Entitic mass] 29.9 pg Normal 26.0-34.0 [facility] Comment on above: Order Comment: Speci men Type: BLOOD SPECIMENOrdering Facility: [facility] Address: [address] [place] [address] Performed By: #### 5 7021-8 ####[facility] LABORATORYCLIA [id number] [place] [address] [place] MCHC (RBC) [Mass/Vol] 33.7 g/dL Normal 30.5-36.0 [facility] Comment on above: Order Comment: Speci men Type: BLOOD SPECIMENOrdering Facility: [facility] Address: [address] [place] [address] Performed By: #### 5 7021-8 ####[facility] LABORATORYCLIA [id number] [address] [place] MCV (RBC) [Entitic vol] 88.9 fL Normal 80.0-100.0 [facility] Comment on above: Order Comment: Speci men Type: BLOOD SPECIMENOrdering Facility: [facility] Address: [address] [place] [address] Performed By: #### 5 7021-8 ####[facility] LABORATORYCLIA [id number] [address] [place] Monocytes (Bld) [#/Vol] 0.26 10*3/uL Normal <0.87 [facility] Comment on above: Order Comment: Speci men Type: BLOOD SPECIMENOrdering Facility: [facility] Address: [address] [place] [address] Performed By: #### 5 7021-8 ####[facility] LABORATORYCLIA [id number] [address] Monocytes/100 WBC (Bld) 8.4 % Normal [facility] Comment on above: Order Comment: Speci men Type: BLOOD SPECIMENOrdering Facility: [facility] Address: [address] [place] [address] Performed By: #### 5 7021-8 ####OS[facility] LABORATORYCLIA [id number] [place] [id number] [place] Neutrophils (Bld) [#/Vol] 1.32 10*3/uL Low 1.45-7.50 [facility] Comment on above: Order Comment: Speci men Type: BLOOD SPECIMENOrdering Facility: [facility] Address: [address] [place] [address] Performed By: #### 5 7021-8 ####[facility] LABORATORYCLIA [id number] [place] [address] [place] Neutrophils/100 WBC (Bld) 42.7 % Normal [facility] Comment on above: Order Comment: Speci men Type: BLOOD SPECIMENOrdering Facility: [facility] Address: [address] [place] [address] Performed By: #### 5 7021-8 ####[facility] LABORATORYCLIA [id number] [place] [id number] [place] Nucleated RBC (Bld) [#/Vol] 10*3/uL Normal <0.01 [facility] Comment on above: Order Comment: Speci men Type: BLOOD SPECIMENOrdering Facility: [facility] Address: [address] [place] [address] Performed By: #### 5 7021-8 ####OSVALDO LABORATORYCLIA [id number] [address] [place] Nucleated RBC/100 WBC (Bld) [Ratio] 0.0 /100 WBC Normal [facility] Comment on above: Order Comment: Speci men Type: BLOOD SPECIMENOrdering Facility: [facility] Address: [address] [place] [address] Performed By: #### 5 7021-8 ####[facility] LABORATORYCLIA [id number] [place] [id number] [place] Platelet mean volume (Bld) [Entitic vol] 10.6 fL Normal 9.0-12.7 [facility] Comment on above: Order Comment: Speci men Type: BLOOD SPECIMENOrdering Facility: [facility] Address: [address] [place] [address] Performed By: #### 5 7021-8 ####[facility] LABORATORYCLIA [id number] [place] [id number] [place] Platelets (Bld) [#/Vol] 210 10*3/uL Normal 150-400 [facility] Comment on above: Order Comment: Speci men Type: BLOOD SPECIMENOrdering Facility: [facility] Address: [address] [place] [address] Performed By: #### 5 7021-8 ####[facility] LABORATORYCLIA [id number] [place] [id number] [place] RBC (Bld) [#/Vol] 3.34 10*6/uL Low 3.90-5.20 [facility] [place] Comment on above: Order Comment: Speci men Type: BLOOD SPECIMENOrdering Facility: [facility] Address: [address] [place] [address] Performed By: #### 5 7021-8 ####[facility] LABORATORYCLIA [id number] [place] [id number] [facility] [place] WBC (Bld) [#/Vol] 3.09 10*3/uL Low 3.70-11.00 [facility] [place] Comment on above: Order Comment: Speci men Type: BLOOD SPECIMENOrdering Facility: [facility] Address: [address] [place] [address] Performed By: #### 5 7021-8 ####[facility] LABORATORYCLIA [id number] [place] [id number] [place] Magnesium SerPl-mCncon 07-18 Magnesium [Mass/Vol] 2.0 mg/dL Normal 1.7-2.3 [facility] Comment on above: Order Comment: Speci men Type: BLOOD SPECIMENOrdering Facility: [facility] Address: [address] [place] [address] Performed By: #### 2 4321-2, 99869-1, 2777-1 ####[facility] LABORATORYCLIA [id number] [place] [id number] [place] NUTRITIONon 07-19-2023 NUTRITION Normal [facility] Phosphate SerPl-mCncon 07-18 Phosphate [Mass/Vol] 4.3 mg/dL Normal 2.7-4.8 [facility] Comment on above: Order Comment: Speci men Type: BLOOD SPECIMENOrdering Facility: [facility] Address: [address] [place], [place] [address] Performed By: #### 2 4321-2, , 2776-02 ####[facility] LABORATORYCLIA [id number] [place] [address] [place] ALLIED HEALTHon 07-18-2023 ALLIED HEALTH Normal [facility] ALLIED HEALTH Normal [facility] Basic metabolic 2000 panelon 07-18-2023 Anion gap [Moles/Vol] 9 mmol/L Normal 9-18 [facility] Comment on above: Order Comment: Speci men Type: BLOOD SPECIMENOrdering Facility: [facility] Address: [address] [place] [address] Performed By: #### 2 4321-2, , 2776-02 ####[facility] LABORATORYCLIA [id number] [place] [address] [place] Calcium [Mass/Vol] 8.5 mg/dL Normal 8.5-10.2 [facility] Comment on above: Order Comment: Speci men Type: BLOOD SPECIMENOrdering Facility: [facility] Address: [address] [place], [place] [address] Performed By: #### 2 4321-2, , 2776-02 ####[facility] LABORATORYCLIA [id number] [place] [id number] [place] Chloride [Moles/Vol] 108 mmol/L High 97-105 [facility] Comment on above: Order Comment: Speci men Type: BLOOD SPECIMENOrdering Facility: [facility] Address: [address] [place] [address] Performed By: #### 2 4321-2, , 2776-02 ####[facility] LABORATORYCLIA [id number] [place] [address] [place] CO2 [Moles/Vol] 22 mmol/L Normal 22-30 [facility] Comment on above: Order Comment: Speci men Type: BLOOD SPECIMENOrdering Facility: [facility] Address: [address] [place] [address] Performed By: #### 2 4321-2, , 2776-02 ####[facility] LABORATORYCLIA [id number] [place] [id number] [place] [facility] Creatinine [Mass/Vol] 0.76 mg/dL Normal 0.58-0.96 [facility] Comment on above: Order Comment: Speci men Type: BLOOD SPECIMENOrdering Facility: [facility] Address: [address] [place] [address] Performed By: #### 2 4321-2, , 2776-02 ####[facility] LABORATORYCLIA [id number] [place] [id number] [place] [facility] Creatinine and Glomerular filtration rate.predicted panel (S/P/Bld) 106 mL/min/1.73m??? Normal >=60 [facility] Comment on above: Order Comment: Speci men Type: BLOOD SPECIMENOrdering Facility: [facility] Address: [address] [place] [address] Result Comment: Jessica mated Glomerular Filtration Rate [...] Performed By: #### 2 4321-2, , 2776-02 ####[facility] LABORATORYCLIA [id number] [place] [id number] [place] Glucose [Mass/Vol] 80 mg/dL Normal 74-99 [facility] Comment on above: Order Comment: Speci men Type: BLOOD SPECIMENOrdering Facility: [facility] Address: [address] [place] [address] Result Comment: The [place] [employer] (ADA) provides guidance for cutoff [...] Standards of Medical Care in Diabetes 2016, [place] [employer]. Diabetes Care. 2016.39(Suppl 1). Performed By: #### 2 4321-2, , 2776-02 ####[facility] LABORATORYCLIA [id number] [place] [address] [place] Potassium [Moles/Vol] 4.1 mmol/L Normal 3.7-5.1 [facility] Comment on above: Order Comment: Speci men Type: BLOOD SPECIMENOrdering Facility: [facility] Address: [address] [place] [address] Performed By: #### 2 4321-2, , 2776-02 ####[facility] LABORATORYCLIA [id number] [place] [id number] [place] Sodium [Moles/Vol] 139 mmol/L Normal 136-144 [facility] Comment on above: Order Comment: Speci men Type: BLOOD SPECIMENOrdering Facility: [facility] Address: [address] [place] [address] Performed By: #### 2 4321-2, , 2776-02 ####[facility] LABORATORYCLIA [id number] [place] [id number] [place] Urea nitrogen [Mass/Vol] 7 mg/dL Normal 7-21 [facility] Comment on above: Order Comment: Speci men Type: BLOOD SPECIMENOrdering Facility: [facility] Address: [address] [place] [address] Performed By: #### 2 4321-2, , 2776-02 ####[facility] LABORATORYCLIA [id number] [place] [id number] [place] CBC W Auto Differential pane l (Bld)on 07-18-2023 Basophils (Bld) [#/Vol] 0.06 10*3/uL Normal <0.11 [facility] Comment on above: Order Comment: Speci men Type: BLOOD SPECIMENOrdering Facility: [facility] Address: [address] [place] [address] Performed By: #### 5 7021-8 ####[facility] LABORATORYCLIA [id number] [place] [id number] [place] Basophils/100 WBC (Bld) 1.6 % Normal [facility] Comment on above: Order Comment: Speci men Type: BLOOD SPECIMENOrdering Facility: [facility] Address: [address] [place] [address] Performed By: #### 5 7021-8 ####[facility] LABORATORYCLIA [id number] [place] [address] [place] Differential cell count method Nom (Bld) Auto Normal [facility] Comment on above: Order Comment: Speci men Type: BLOOD SPECIMENOrdering Facility: [facility] Address: [address] [place] [address] Performed By: #### 5 7021-8 ####OS[facility] LABORATORYCLIA [id number] [place] [address] [place] Eosinophils (Bld) [#/Vol] 0.33 10*3/uL Normal <0.46 [facility] Comment on above: Order Comment: Speci men Type: BLOOD SPECIMENOrdering Facility: [facility] Address: [address] [place] [address] Performed By: #### 5 7021-8 ####OS[facility] LABORATORYCLIA [id number] [place] [id number] [place] Eosinophils/100 WBC (Bld) 8.8 % Normal [facility] Comment on above: Order Comment: Speci men Type: BLOOD SPECIMENOrdering Facility: [facility] Address: [address] [place] [address] Performed By: #### 5 7021-8 ####[facility] LABORATORYCLIA [id number] [place] [id number] [place] Erythrocyte distribution width (RBC) [Ratio] 12.9 % Normal 11.5-15.0 [facility] Comment on above: Order Comment: Speci men Type: BLOOD SPECIMENOrdering Facility: [facility] Address: [address] [place] [address] Performed By: #### 5 7021-8 ####[facility] LABORATORYCLIA [id number] [place] [address] [place] Hematocrit (Bld) [Volume fraction] 31.1 % Low 36.0-46.0 [facility] Comment on above: Order Comment: Speci men Type: BLOOD SPECIMENOrdering Facility: [facility] Address: [address] [place] [address] Performed By: #### 5 7021-8 ####[facility] LABORATORYCLIA [id number] [place] [address] [place] Hemoglobin (Bld) [Mass/Vol] 10.2 g/dL Low 11.5-15.5 [facility] Comment on above: Order Comment: Speci men Type: BLOOD SPECIMENOrdering Facility: [facility] Address: [address] [place] [address] Performed By: #### 5 7021-8 ####[facility] LABORATORYCLIA [id number] [place] [address] [place] Immature granulocytes (Bld) [#/Vol] 10*3/uL Normal <0.10 [facility] Comment on above: Order Comment: Speci men Type: BLOOD SPECIMENOrdering Facility: [facility] Address: [address] [place] [address] Performed By: #### 5 7021-8 ####[facility] LABORATORYCLIA [id number] [place] [id number] [facility] [place] Immature granulocytes/100 WBC (Bld) 0.0 % Normal [facility] Comment on above: Order Comment: Speci men Type: BLOOD SPECIMENOrdering Facility: [facility] Address: [address] [place] [address] Performed By: #### 5 7021-8 ####[facility] LABORATORYCLIA [id number] [place] [address] [place] Lymphocytes (Bld) [#/Vol] 1.40 10*3/uL Normal 1.00-4.00 [facility] Comment on above: Order Comment: Speci men Type: BLOOD SPECIMENOrdering Facility: [facility] Address: [address] [place] [address] Performed By: #### 5 7021-8 ####[facility] LABORATORYCLIA [id number] [address] [place] Lymphocytes/100 WBC (Bld) 37.2 % Normal [facility] Comment on above: Order Comment: Speci men Type: BLOOD SPECIMENOrdering Facility: [facility] Address: [address] [place] [address] Performed By: #### 5 7021-8 ####[facility] LABORATORYCLIA [id number] [place] [address] [place] MCH (RBC) [Entitic mass] 30.4 pg Normal 26.0-34.0 [facility] Comment on above: Order Comment: Speci men Type: BLOOD SPECIMENOrdering Facility: [facility] Address: [address] [place] [address] Performed By: #### 5 7021-8 ####[facility] LABORATORYCLIA [id number] [address] [place] MCHC (RBC) [Mass/Vol] 32.8 g/dL Normal 30.5-36.0 [facility] Comment on above: Order Comment: Speci men Type: BLOOD SPECIMENOrdering Facility: [facility] Address: [address] [place] [address] Performed By: #### 5 7021-8 ####[facility] LABORATORYCLIA [id number] [address] [place] MCV (RBC) [Entitic vol] 92.6 fL Normal 80.0-100.0 [facility] Comment on above: Order Comment: Speci men Type: BLOOD SPECIMENOrdering Facility: [facility] Address: [address] [place] [address] Performed By: #### 5 7021-8 ####OS[facility] LABORATORYCLIA [id number] [place] [id number] [place] Monocytes (Bld) [#/Vol] 0.42 10*3/uL Normal <0.87 [facility] Comment on above: Order Comment: Speci men Type: BLOOD SPECIMENOrdering Facility: [facility] Address: [address] [place] [address] Performed By: #### 5 7021-8 ####OS[facility] LABORATORYCLIA [id number] [place] [id number] [place] Monocytes/100 WBC (Bld) 11.2 % Normal [facility] Comment on above: Order Comment: Speci men Type: BLOOD SPECIMENOrdering Facility: [facility] Address: [address] [place] [address] Performed By: #### 5 7021-8 ####OS[facility] LABORATORYCLIA [id number] [place] [address] [place] Neutrophils (Bld) [#/Vol] 1.55 10*3/uL Normal 1.45-7.50 [facility] Comment on above: Order Comment: Speci men Type: BLOOD SPECIMENOrdering Facility: [facility] Address: [address] [place] [address] Performed By: #### 5 7021-8 ####OS[facility] LABORATORYCLIA [id number] [place] [id number] [place] Neutrophils/100 WBC (Bld) 41.2 % Normal [facility] Comment on above: Order Comment: Speci men Type: BLOOD SPECIMENOrdering Facility: [facility] Address: [address] [place] [address] Performed By: #### 5 7021-8 ####OS[facility] LABORATORYCLIA [id number] [place] [id number] [place] Nucleated RBC (Bld) [#/Vol] 10*3/uL Normal <0.01 [facility] Comment on above: Order Comment: Speci men Type: BLOOD SPECIMENOrdering Facility: [facility] Address: [address] [place] [address] Performed By: #### 5 7021-8 ####[facility] LABORATORYCLIA [id number] [place] [id number] [place] Nucleated RBC/100 WBC (Bld) [Ratio] 0.0 /100 WBC Normal [facility] Comment on above: Order Comment: Speci men Type: BLOOD SPECIMENOrdering Facility: [facility] Address: [address] [place] [address] Performed By: #### 5 7021-8 ####[facility] LABORATORYCLIA [id number] [place] [address] [place] Platelet mean volume (Bld) [Entitic vol] 11.0 fL Normal 9.0-12.7 [facility] Comment on above: Order Comment: Speci men Type: BLOOD SPECIMENOrdering Facility: [facility] Address: [address] [place] [address] Performed By: #### 5 7021-8 ####[facility] LABORATORYCLIA [id number] [place] [address] [place] Platelets (Bld) [#/Vol] 212 10*3/uL Normal 150-400 [facility] Comment on above: Order Comment: Speci men Type: BLOOD SPECIMENOrdering Facility: [facility] Address: [address] [place] [address] Performed By: #### 5 7021-8 ####[facility] LABORATORYCLIA [id number] [place] [id number] [place] RBC (Bld) [#/Vol] 3.36 10*6/uL Low 3.90-5.20 [facility] [place] Comment on above: Order Comment: Speci men Type: BLOOD SPECIMENOrdering Facility: [facility] Address: [address] [place] [address] Performed By: #### 5 7021-8 ####[facility] LABORATORYCLIA [id number] [place] [id number] [place] WBC (Bld) [#/Vol] 3.76 10*3/uL Normal 3.70-11.00 [facility] [place] Comment on above: Order Comment: Speci men Type: BLOOD SPECIMENOrdering Facility: [facility] Address: [address] [place] [address] Performed By: #### 5 7021-8 ####[facility] LABORATORYCLIA [id number] [place] [id number] [place] Magnesium SerPl-mCncon 07-17 Magnesium [Mass/Vol] 1.9 mg/dL Normal 1.7-2.3 [facility] Comment on above: Order Comment: Speci men Type: BLOOD SPECIMENOrdering Facility: [facility] Address: [address] [place] [address] Performed By: #### 2 4321-2, 45135-0, 2777-1 ####[facility] LABORATORYCLIA [id number] [place] [address] [place] Phosphate SerPl-mCncon 07-17 Phosphate [Mass/Vol] 4.7 mg/dL Normal 2.7-4.8 [facility] Comment on above: Order Comment: Speci men Type: BLOOD SPECIMENOrdering Facility: [facility] Address: [address] [place] [address] Performed By: #### 2 4321-2, 23705-5, 2777-1 ####[facility] LABORATORYCLIA [id number] [place] [id number] [place] XR CHEST 1V FRONTAL PORTon 0 07-18-2023 XR CHEST 1V FRONTAL PORT Normal [facility] XR SMALL BOWEL SERIESon XR SMALL BOWEL SERIES Normal [facility] Capillary blood glucose brie urement by glucometer (mass/volume)Ordered By: Camden Rodriguez on 07-17-2023 Glucose [Mass/Vol] 86 mg/dL Normal [facility] Comment on above: Random Glucose Refer ence Range is dependent on time and content of last meal. Glucose of more than 200 mg/dL in a nonstressed, ambulatory subject supports the diagnosis of Diabetes Mellitus. Result Comment: [facility] Glucose Reference Range is dependent on time and content of last meal. Glucose of more than 200 mg/dL in a nonstressed, ambulatory subject supports the diagnosis of Diabetes Mellitus. PERFORMED BY: [place] [address] PATHOLOGIST [employer]LLER BAUTISTA BAKER M.D. Performed By: #### G LUSAHIL #### Point of Care testing , Glucose Poct Glucometerson 0 07-17-2023 Commemt1 Glu2: Cleaned Meter Normal [facility] Comment on above: Result Comment: PERF ORMED BY: [place] [address] PATHOLOGIST G[employer] LEAF ROLLER BAUTISTA BAKER M.D. Performed By: #### H EPATIC, MG, LIPASE, CMP, CBC #### [place] [id number] [facility] Glucose [Mass/Vol] 90 mg/dL Normal [facility] Comment on above: Result Comment: [facility] Glucose Reference Range is dependent on time and content of last meal. Glucose of more than 200 mg/dL in a nonstressed, ambulatory subject supports the diagnosis of Diabetes Mellitus. Performed By: #### H EPATIC, MG, LIPASE, CMP, CBC #### [place] [id number] [facility] HISTORY PHYSICALon HISTORY PHYSICAL Normal [facility] NURSING PROGon 07-17-2023 NURSING PROG Normal [facility] No Panel InformationOrdered By: Camden Rodriguez on 07-17-2023 Bedside Glucose Comment Glu2: cleaned meter [facility] Alanine aminotransferase [En zymatic activity/volume] in Serum or PlasmaOrdered By: Shaan Sabillon on 07-16-2023 ALT [Catalytic activity/Vol] 39 U/L Normal [facility] Comment on above: Performed By: #### A DDONUAJESSICA, UHCG, CUU #### [place] [id number] [place] Albumin [Mass/volume] in Ser um or Plasma by Bromocresol green (BCG) dye binding methoOrdered By: Shaan Sabillon on 07-16-2023 Albumin BCG dye [Mass/Vol] 4.3 g/dL 3.5-5.7 [facility] Alkaline phosphatase [Enzyma tic activity/volume] in Serum or PlasmaOrdered By: Shaan Sabillon on 07-16-2023 ALP [Catalytic activity/Vol] 57 U/L Normal 34-104 [facility] Comment on above: Performed By: #### A JOSESITO RAY, CUU #### [address] Aspartate aminotransferase [ Enzymatic activity/volume] in Serum or PlasmaOrdered By: Shaan Sabillon on 07-16-2023 AST [Catalytic activity/Vol] 43 U/L High 13-39 [facility] Comment on above: Performed By: #### A JOSESITO RAY, CUU #### [address] Automated basophil %Ordered By: Shaan Sabillon on 07-16-2023 Basophils/100 WBC (Bld) 0.7 % Normal . [facility] Comment on above: Performed By: #### A JOSESITO RAY, CUU #### [address] Automated basophil countOrde red By: Shaan Sabillon on 07-16-2023 Basophils (Bld) [#/Vol] 0.0 10*3/uL Normal 0.0-0.2 [facility] Comment on above: Result Comment: PERF ORMED BY: [place] [address] PATHOLOGIST [employer]LLER BAUTISTA BAKER M.D. Performed By: #### A JOSESITO RAY, CUU #### [address] Automated blood monocyte cou ntOrdered By: Shaan Sabillon on 07-16-2023 Monocytes (Bld) [#/Vol] 0.3 10*3/uL Normal 0.0-0.8 [facility] Comment on above: Performed By: #### A CORY, UHCG, CUU #### [address] Automated eosinophil %Ordere d By: Shaan Sabillon on 07-16-2023 Eosinophils/100 WBC (Bld) 0.5 % Normal . [facility] Comment on above: Performed By: #### A DDONBRITTANIE MAYSCG, CUU #### [address] Automated eosinophil countOr dered By: Shaan Sabillon on 07-16-2023 Eosinophils (Bld) [#/Vol] 0.0 10*3/uL Normal 0.0-0.45 [facility] Comment on above: Performed By: #### A DDBRITTANIE BERNABECG, CUU #### [address] Automated monocyte %Ordered By: Shaan Sabillon on 07-16-2023 Monocytes/100 WBC (Bld) 4.5 % Normal . [facility] Comment on above: Performed By: #### A DDFLORECITA, BRITTANIECG, CUU #### [address] Automated neutrophil %Ordere d By: Shaan Sabillon on 07-16-2023 Neutrophils/100 WBC (Bld) 75.6 % Normal . [facility] Comment on above: Performed By: #### A ALIYAH RAYG, CUU #### [address] Basic Metabolic Panelon 06-17 Creatinine Clr Calc Pharmacy 117.42 Normal [facility] Comment on above: Performed By: #### A DDFAIZAUAJESSICA, BRITTANIECG, CUU #### [address] GFR/1.73 sq M.predicted MDRD (S/P/Bld) [Vol rate/Area] mL/min/{1.73_m2} Normal [facility] Comment on above: Performed By: #### A DDONUAJESSCIA, BRITTANIECG, CUU #### [place] [id number] [facility] Bilirubin Test strip Ql (U)O rdered By: Shaan Sabillon on 07-16-2023 Bilirubin Ql (U) Negative Negative [facility] Bilirubin.direct [Mass/volum e] in Serum or PlasmaOrdered By: Shaan Sabillon on 07-16-2023 Bilirubin.direct [Mass/Vol] 0.10 mg/dL 0.03-0.18 [facility] Bilirubin.total [Mass/volume ] in Serum or PlasmaOrdered By: Shaan Sabillon on 07-16-2023 Bilirubin [Mass/Vol] 0.6 mg/dL Normal 0.3-1.0 [facility] Comment on above: Performed By: #### A CORY, [facility] [place] #### [address] abdomen pelvis w conon CT abdomen pelvis w con [facility] [place] [address] [place] [address] CT Scan Report Signed Patient: Abbey Garcia MR#: [id number] : 1990 Acct:[id number] Age/Sex: 33 / F ADM Date: 07/16/23 Loc: ER Room: Type: [facility] ER Attending Dr: Copies to: Shaan Sabillon [...] Medel Jr., D.ORenetta07/16/2023 4:09 PM Dictation Location: [facility]-15 Transcribed By: [facility] 07/16/23 1609 Dictated By: Cornel Medel Jr, DO 07/16/23 1606 Signed By: 07/16/23 1609 Normal [facility] Calcium [Mass/volume] in Ser um or PlasmaOrdered By: Shaan Sabillon on 07-16-2023 Calcium [Mass/Vol] 8.9 mg/dL Normal 8.6-10.3 [facility] Comment on above: Performed By: #### A JOSESITO RAY, CUU #### [address] Carbon dioxide, total [Moles /volume] in Serum or PlasmaOrdered By: Shaan Sabillon on 07-16-2023 CO2 [Moles/Vol] 24.2 mmol/L Normal 21.0-31.0 [facility] Comment on above: Performed By: #### A JOSESITO RAY, CUU #### [facility] [address] [place] [address] [place] Chloride [Moles/volume] in S elder or PlasmaOrdered By: Shaan Sabillon on 07-16-2023 Chloride [Moles/Vol] 107 mmol/L Normal 98-107 [facility] Comment on above: Performed By: #### A JOSESITO RAY, CUU #### [facility] [address] Color of Urine by AutoOrdere d By: Shaan Sabillon on 07-16-2023 Color (U) Yellow Normal Yellow [facility] Comment on above: Order Comment: Name Collection Type:: Clean-Voided Midstream Performed By: #### A DDONUAPLUS, UHCG, CUU #### [address] Complete Blood Count Auto Di ffon 07-16-2023 Mean Corpuscular HGB Conc 34.2 g/dL Normal 32.0-35.0 [facility] Comment on above: Performed By: #### A DDONUAPLUS, UHCG, CUU #### [address] Monocytes/100 WBC (Bld) 16.79 % Normal 0.00-20.00 [facility] Comment on above: Performed By: #### A DDONUAPLUS, UHCG, CUU #### [address] NRBC% 0.0 /100{WBC} Normal 0-0.5 [facility] Comment on above: Performed By: #### A DDONUAPLUS, UHCG, CUU #### [address] Creatinine [Mass/volume] in Serum or PlasmaOrdered By: Shaan Sabillon on 07-16-2023 Creatinine [Mass/Vol] 0.72 mg/dL Normal 0.60-1.20 [facility] Comment on above: Performed By: #### A DDONUAPLUS, UHCG, CUU #### [address] Erythrocyte distribution wid th [Ratio] by Automated countOrdered By: Shaan Sabillon on 07-16-2023 Erythrocyte distribution width (RBC) [Ratio] 14.4 % Normal 11.9-15.3 [facility] Comment on above: Performed By: #### A DDONUAPLUS, UHCG, CUU #### [address] Erythrocytes [#/volume] in B lood by Automated countOrdered By: Shaan Sabillon on 07-16-2023 RBC (Bld) [#/Vol] 3.67 10*6/uL Normal 3.60-5.00 [facility] Comment on above: Performed By: #### A DDONUAPLUS, CG, CUU #### [facility] [address] Glucose [Mass/volume] in Ser um or PlasmaOrdered By: Shaan Sabillon on 07-16-2023 Glucose [Mass/Vol] 82 mg/dL Normal 70-100 [facility] Comment on above: ADA recommended refe rence rangeRandom Glucose Reference Range is dependent on time and content of last meal. Glucose of more than 200 mg/dL in a nonstressed, ambulatory subject supports the diagnosis of Diabetes Mellitus. Result Comment: [place] om Glucose Reference Range is dependent on time and content of last meal. Glucose of more than 200 mg/dL in a nonstressed, ambulatory subject supports the diagnosis of Diabetes Mellitus. ADA recommended reference range Performed By: #### A DDONUAPLUS, CG, CUU #### [facility] [address] HCG ( test) IA.rapi d Ql (U)Ordered By: Shaan Sabillon on 07-16-2023 HCG ( test) Ql (U) Negative [facility] HCG,Urineon 07-16-2023 Beta HCG ( test) Ql (U) Negative Normal [facility] Comment on above: Order Comment: Name Collection Type:: Clean-Voided Midstream Result Comment: PERF ORMED BY: [facility] [address] [place] [address] PATHOLOGIST GOLD LEAF ROLLER BAUTISTA BAKER M.D. Performed By: #### A DDFLORECITA, CG, CUU #### [facility] [address] [place] [id number] [facility] Hematocrit [Volume Fraction] of Blood by Automated countOrdered By: Shaan Sabillon on 07-16-2023 Hematocrit (Bld) [Volume fraction] 32.8 % Low 34.0-46.4 [facility] Comment on above: Performed By: #### A DDONUAPLUS, UHCG, CUU #### [facility] [address] Hemoglobin [Mass/volume] in BloodOrdered By: Shaan Sabillon on 07-16-2023 Hemoglobin (Bld) [Mass/Vol] 11.2 g/dL Low 11.8-15.4 [facility] Comment on above: Performed By: #### A DDONUAPLUS, UHCG, CUU #### [facility] [address] Hepatic Panelon 07-16-2023 Albumin [Mass/Vol] 4.3 g/dL Normal 3.5-5.7 [facility] Comment on above: Performed By: #### A DDONUAPLUS, UHCG, CUU #### [address] Bilirubin,Indirect 0.5 mg/dL Normal [facility] Comment on above: Performed By: #### A DDONUAPLUS, UHCG, CUU #### [facility] [address] Bilirubin.indirect [Mass/Vol] 0.10 mg/dL Normal 0.03-0.18 [facility] Comment on above: Performed By: #### A DDONUAPLUS, UHCG, CUU #### [address] Ketones Auto test strip (U) [Mass/Vol]Ordered By: Shaan Sabillon on 07-16-2023 Ketones (U) [Mass/Vol] Negative Negative [facility] Leukocytes [#/volume] correc darvin for nucleated erythrocytes in Blood by Automated counOrdered By: Shaan Sabillon on 07-16-2023 WBC corrected for nucl RBC Auto (Bld) [#/Vol] 6.9 10*3/uL 3.8-11.6 [facility] Leukocytes [#/volume] in Blo od by Automated countOrdered By: Shaan Sabillon on 07-16-2023 WBC (Bld) [#/Vol] 6.9 10*3/uL Normal 3.8-11.6 [facility] Comment on above: Performed By: #### A JOSESITO RAY, CUU #### [address] Lipase [Enzymatic activity/v olume] in Serum or PlasmaOrdered By: Shaan Sabillon on 07-16-2023 Lipase [Catalytic activity/Vol] 45.0 U/L Normal 11.0-82.0 [facility] Comment on above: Result Comment: PERF ORMED BY: [place] [address] PATHOLOGIST GOLD LEAF ROLLER BAUTISTA BAKER M.D. Performed By: #### A JOSESITO RAY, CUU #### [address] Lymphocytes [#/volume] in Bl ood by Automated countOrdered By: Shaan Sabillon on 07-16-2023 Lymphocytes (Bld) [#/Vol] 1.3 10*3/uL Normal 1.00-4.8 [facility] Comment on above: Performed By: #### A JOSESITO RAY, CUU #### [address] Lymphocytes/100 leukocytes i n Blood by Automated countOrdered By: Shaan Sabillon on 07-16-2023 Lymphocytes/100 WBC (Bld) 18.7 % Normal . [facility] Comment on above: Performed By: #### A JOSESITO RAY, CUU #### [place] [address] [place] MCH [Entitic mass] by Automa darvin countOrdered By: Shaan Sabillon on 07-16-2023 MCH (RBC) [Entitic mass] 30.5 pg Normal 24.7-34.3 [facility] Comment on above: Performed By: #### A JOSESITO RAY, CUU #### [place] [address] [place] MCHC Auto (RBC) [Mass/Vol]Or dered By: Shaan Sabillon on 07-16-2023 MCHC (RBC) [Mass/Vol] 34.2 g/dL 32.0-35.0 [facility] MCV [Entitic volume] by Auto mated countOrdered By: Shaan Sabillon on 07-16-2023 MCV (RBC) [Entitic vol] 89.2 fL Normal 80-100 [facility] Comment on above: Performed By: #### A CORY, [facility] [place], CUU #### [facility] [address] Monocyte distribution width [Entitic volume] in Blood by AutomatedOrdered By: Shaan Sabillon on 07-16-2023 Monocyte distribution width Auto (Bld) [Entitic vol] 16.79 % 0.00-20.00 [facility] Neutrophils [#/volume] in Bl ood by Automated countOrdered By: Shaan Sabillon on 07-16-2023 Neutrophils (Bld) [#/Vol] 5.2 10*3/uL Normal 1.8-7.7 [facility] Comment on above: Performed By: #### A CORY, [facility] CUU #### [facility] [address] [place] [address] Nitrite Test strip Ql (U)Ord ered By: Shaan Sabillon on 07-16-2023 Nitrite Ql (U) Negative Negative [facility] No Panel InformationOrdered By: Shaan Sabillon on 07-16-2023 Estimated GFR (CKD-EPI) > 60.0 mL/Min [facility] Creatinine Clearance (Chem 117.42 [facility] Nucleated erythrocytes [Pres ence] in Blood by Automated countOrdered By: Shaan Sabillon on 07-16-2023 Nucleated RBC Auto Ql (Bld) 0.0 /100{WBC} 0-0.5 [facility] Platelet mean volume [Entiti c volume] in Blood by Automated countOrdered By: Shaan Sabillon on 07-16-2023 Platelet mean volume (Bld) [Entitic vol] 9.0 fL Normal 6.3-10.7 [facility] Comment on above: Performed By: #### A JOSESITO RAY, CUU #### [address] Platelets [#/volume] in Bloo d by Automated countOrdered By: Shaan Sabillon on 07-16-2023 Platelets (Bld) [#/Vol] 282 10*3/uL Normal 150-450 [facility] Comment on above: Performed By: #### A JOSESITO RAY, CUU #### [address] Potassium [Moles/volume] in Serum or PlasmaOrdered By: Shaan Sabillon on 07-16-2023 Potassium [Moles/Vol] 3.7 mmol/L Normal 3.5-5.1 [facility] Comment on above: Performed By: #### A JOSESITO RAY, CUU #### [address] Protein Auto test strip (U) [Mass/Vol]Ordered By: Shaan Sabillon on 07-16-2023 Protein (U) [Mass/Vol] Negative Negative [facility] Protein [Mass/volume] in Ser um or PlasmaOrdered By: Shaan Sabillon on 07-16-2023 Protein [Mass/Vol] 6.8 g/dL Normal 6.4-8.9 [facility] Comment on above: Performed By: #### A JOSESITO RAY, CUU #### [address] Serum globulin measurement b y calculation (mass/volume)Ordered By: Shaan Sabillon on 07-16-2023 Globulin (S) [Mass/Vol] 2.5 g/dL Normal [facility] Comment on above: Performed By: #### A JOSESITO RAY, CUU #### [address] Serum or plasma albumin/glob ulin mass ratioOrdered By: Shaan Sabillon on 07-16-2023 Albumin/Globulin [Mass ratio] 1.7 {ratio} Normal [facility] Comment on above: Performed By: #### A DDONBRITTANIE MAYSCG, CUU #### [address] Serum or plasma anion gap de terminationOrdered By: Shaan Sabillon on 07-16-2023 Anion gap [Moles/Vol] 9.5 mmol/L Normal 6.0-15.0 [facility] Comment on above: Performed By: #### A CORY UHCG, CUU #### [address] Serum or plasma non-glucuron idated bilirubin measurement (mass/volume)Ordered By: Shaan Sabillon on 07-16-2023 Bilirubin.indirect [Mass/Vol] 0.5 mg/dL [facility] Sodium [Moles/volume] in Ser um or PlasmaOrdered By: Shaan Sabillon on 07-16-2023 Sodium [Moles/Vol] 137 mmol/L Normal 136-145 [facility] Comment on above: Performed By: #### A BRITTANIE RAYCG, CUU #### [address] Specific gravity Auto test s trip (U) [Rel density]Ordered By: Shaan Sabillon on 07-16-2023 Specific gravity (U) [Rel density] 1.006 1.001-1.030 [facility] Urea nitrogen [Mass/volume] in Serum or PlasmaOrdered By: Shaan Sabillon on 07-16-2023 Urea nitrogen [Mass/Vol] 14 mg/dL Normal 7-25 [facility] Comment on above: Performed By: #### A DDONUAPLUS, BRITTANIECG, CUU #### [address] Urinalysison 07-16-2023 Appearance (U) Clear Normal Clear [facility] Comment on above: Order Comment: Name Collection Type:: Clean-Voided Midstream Performed By: #### A DDONUAPLUS, UHCG, CUU #### [address] Bilirubin,Urine Negative Normal Negative [facility] Comment on above: Order Comment: Name Collection Type:: Clean-Voided Midstream Performed By: #### A DDONUAPLUS, UHCG, CUU #### [place] [address] [place] Glucose Ql (U) Normal Normal Normal [facility] Comment on above: Order Comment: Name Collection Type:: Clean-Voided Midstream Performed By: #### A DDONUAPLUS, UHCG, CUU #### [place] [address] [place] Ketones Ql (U) Negative Normal Negative [facility] Comment on above: Order Comment: Name Collection Type:: Clean-Voided Midstream Performed By: #### A DDONUAPLUS, UHCG, CUU #### [address] Leukocyte esterase Test strip Ql (U) Negative Normal Negative [facility] Comment on above: Order Comment: Name Collection Type:: Clean-Voided Midstream Performed By: #### A DDONUAPLUS, UHCG, CUU #### [place] [address] [place] Nitrite,Urine Negative Normal Negative [facility] Comment on above: Order Comment: Name Collection Type:: Clean-Voided Midstream Performed By: #### A DDONUAPLUS, UHCG, CUU #### [place] [address] [place] Occult Blood,Urine Negative Normal Negative [facility] Comment on above: Order Comment: Name Collection Type:: Clean-Voided Midstream Performed By: #### A DDONUAPLUS, UHCG, CUU #### [place] [address] [place] Protein,Urine Negative Normal Negative [facility] Comment on above: Order Comment: Name Collection Type:: Clean-Voided Midstream Performed By: #### A DDONUAPLUS, UHCG, CUU #### [place] [address] [place] Specificy [place],Urine 1.006 Normal 1.001-1.030 [facility] Comment on above: Order Comment: Name Collection Type:: Clean-Voided Midstream Performed By: #### A DDONUAPLUS, UHCG, CUU #### [facility] [address] [place] [id number] [facility] Urobilinogen,Urine Normal Normal Normal [facility] Comment on above: Order Comment: Name Collection Type:: Clean-Voided Midstream Performed By: #### A DDONUAPLUS, UHCG, CUU #### [facility] [address] [place] [id number] [facility] Urine clarity by refractomet ry automatedOrdered By: Shaan Sabillon on 07-16-2023 Clarity Refractometry automated (U) Clear Clear [facility] Urine glucose measurement by automated test strip (mass/volume)Ordered By: Shaan Sabillon on 07-16-2023 Glucose Auto test strip (U) [Mass/Vol] Normal mg/dL Normal [facility] Urine hemoglobin detection b y automated test stripOrdered By: Shaan Sabillon on 07-16-2023 Hemoglobin Auto test strip Ql (U) Negative Negative [facility] Urine leukocyte esterase det ection by automated test stripOrdered By: Shaan Sabillon on 07-16-2023 Leukocyte esterase Auto test strip Ql (U) Negative Negative [facility] Urine pH measurement by auto mated test stripOrdered By: Shaan Sabillon on 07-16-2023 pH (U) 7.5 [pH] Normal 5.0-9.0 [facility] Comment on above: Order Comment: Name Collection Type:: Clean-Voided Midstream Performed By: #### A DDONUAPLUS, UHCG, CUU #### [facility] [address] [place] [id number] [place] Urobilinogen Auto test strip (U) [Mass/Vol]Ordered By: Shaan Sabillon on 07-16-2023 Urobilinogen (U) [Mass/Vol] Normal mg/dL Normal [facility] CNPNon 07-13-2023 CNPN Normal [facility] Basic metabolic 2000 panelon 07-06-2023 Anion gap [Moles/Vol] 11 mmol/L Normal 9-18 [facility] Comment on above: Order Comment: Speci men Type: BLOOD SPECIMENOrdering Facility: [facility] Address: [address] [place] [address] Performed By: #### 2 4321-2 ####[facility] LABCLIA [id number] [place] [address] [place] Calcium [Mass/Vol] 8.7 mg/dL Normal 8.5-10.2 [place] Comment on above: Order Comment: Speci men Type: BLOOD SPECIMENOrdering Facility: [facility] Address: [address] [place] [address] Performed By: #### 2 4321-2 ####[facility] LABCLIA [id number] [place] [address] [place] Chloride [Moles/Vol] 110 mmol/L High 97-105 [facility] Comment on above: Order Comment: Speci men Type: BLOOD SPECIMENOrdering Facility: [facility] Address: [address] [place] [address] Performed By: #### 2 4321-2 ####[facility] LABCLIA [id number] [place] [address] [place] CO2 [Moles/Vol] 20 mmol/L Low 22-30 [facility] Comment on above: Order Comment: Speci men Type: BLOOD SPECIMENOrdering Facility: [facility] Address: [address] [place] [address] Performed By: #### 2 4321-2 ####[facility] LABCLIA [id number] [place] [address] [place] Creatinine [Mass/Vol] 0.64 mg/dL Normal 0.58-0.96 [facility] Comment on above: Order Comment: Speci men Type: BLOOD SPECIMENOrdering Facility: [facility] Address: [address] [place] [address] Performed By: #### 2 4321-2 ####[facility] LABCLIA [id number] [place] [address] [place] Creatinine and Glomerular filtration rate.predicted panel (S/P/Bld) 119 mL/min/1.73m??? Normal >=60 [facility] Comment on above: Order Comment: Geraldo marrero Type: BLOOD SPECIMENOrdering Facility: [facility] Address: [address] [place] [address] Result Comment: Jessica mated Glomerular Filtration Rate [...] ####[facility] LABIA [id number] [place] [address] [place] Glucose [Mass/Vol] 89 mg/dL Normal 74-99 [place] Comment on above: Order Comment: Geraldo marrero Type: BLOOD SPECIMENOrdering Facility: [facility] Address: [address] [place] [address] Result Comment: The [place] [employer] Association (ADA) provides guidance for cutoff [...] Standards of Medical Care in Diabetes 2016, [place] [employer]. Diabetes Care. 2016.39(Suppl 1). Performed By: #### 2 4321-2 ####[facility] LABCLIA [id number] [place] [address] [place] Potassium [Moles/Vol] 3.9 mmol/L Normal 3.7-5.1 [facility] Comment on above: Order Comment: Speci men Type: BLOOD SPECIMENOrdering Facility: [facility] Address: [address] [place] [address] Performed By: #### 2 4321-2 ####[facility] LABCLIA [id number] [place] [address] [place] Sodium [Moles/Vol] 141 mmol/L Normal 136-144 [place] Comment on above: Order Comment: Speci men Type: BLOOD SPECIMENOrdering Facility: [facility] Address: [address] [place] [address] Performed By: #### 2 4321-2 ####[facility] LABCLIA [id number] [place] [address] [place] Urea nitrogen [Mass/Vol] 14 mg/dL Normal 7- [facility] Comment on above: Order Comment: Speci men Type: BLOOD SPECIMENOrdering Facility: [facility] Address: [address] [place] [address] Performed By: #### 2 4321-2 ####[facility] LABCLIA [id number] [place] [address] [place] CBC W Auto Differential pane l (Bld)on 07-06-2023 Basophils (Bld) [#/Vol] 10*3/uL Normal <0.11 [facility] Comment on above: Order Comment: Speci men Type: BLOOD SPECIMENOrdering Facility: [facility] Address: [address] [place] [address] Performed By: #### 5 7021-8 ####[facility] LABCLIA [id number] [place] [address] [place] Basophils/100 WBC (Bld) 0.5 % Normal [facility] Comment on above: Order Comment: Speci men Type: BLOOD SPECIMENOrdering Facility: [facility] Address: [address] [place] [address] Performed By: #### 5 7021-8 ####[facility] LABCLIA [id number] [place] [address] [place] Differential cell count method Nom (Bld) Auto Normal [facility] Comment on above: Order Comment: Speci men Type: BLOOD SPECIMENOrdering Facility: [facility] Address: [address] [place] [address] Performed By: #### 5 7021-8 ####[facility] LABCLIA [id number] [place] [address] [place] Eosinophils (Bld) [#/Vol] 10*3/uL Normal <0.46 [facility] Comment on above: Order Comment: Speci men Type: BLOOD SPECIMENOrdering Facility: [facility] Address: [address] [place] [address] Performed By: #### 5 7021-8 ####[facility] LABCLIA [id number] [place] [address] [place] Eosinophils/100 WBC (Bld) 0.2 % Normal [facility] Comment on above: Order Comment: Speci men Type: BLOOD SPECIMENOrdering Facility: [facility] Address: [address] [place] [address] Performed By: #### 5 7021-8 ####[facility] LABCLIA [id number] [place] [address] [place] Erythrocyte distribution width (RBC) [Ratio] 14.0 % Normal 11.5-15.0 [facility] Comment on above: Order Comment: Speci men Type: BLOOD SPECIMENOrdering Facility: [facility] Address: [address] [place] [address] Performed By: #### 5 7021-8 ####[facility] LABCLIA [id number] [place] [address] [place] Hematocrit (Bld) [Volume fraction] 30.6 % Low 36.0-46.0 [facility] Comment on above: Order Comment: Speci men Type: BLOOD SPECIMENOrdering Facility: [facility] Address: [address] [place] [address] Performed By: #### 5 7021-8 ####[facility] LABCLIA [id number] [place] [address] [place] Hemoglobin (Bld) [Mass/Vol] 10.5 g/dL Low 11.5-15.5 [facility] Comment on above: Order Comment: Speci men Type: BLOOD SPECIMENOrdering Facility: [facility] Address: [address] [place] [address] Performed By: #### 5 7021-8 ####[facility] LABCLIA [id number] [place] [address] [place] Immature granulocytes (Bld) [#/Vol] 10*3/uL Normal <0.10 [facility] Comment on above: Order Comment: Speci men Type: BLOOD SPECIMENOrdering Facility: [facility] Address: [address] [place] [address] Performed By: #### 5 7021-8 ####[facility] LABCLIA [id number] [place] [address] [place] Immature granulocytes/100 WBC (Bld) 0.2 % Normal [facility] Comment on above: Order Comment: Speci men Type: BLOOD SPECIMENOrdering Facility: [facility] Address: [address] [place] [address] Performed By: #### 5 7021-8 ####[facility] LABCLIA [id number] [place] [address] [place] Lymphocytes (Bld) [#/Vol] 1.37 10*3/uL Normal 1.00-4.00 [facility] Comment on above: Order Comment: Speci men Type: BLOOD SPECIMENOrdering Facility: [facility] Address: [address] [place] [address] Performed By: #### 5 7021-8 ####[facility] LABIA [id number] [place] [address] [place] Lymphocytes/100 WBC (Bld) 31.2 % Normal [facility] Comment on above: Order Comment: Speci men Type: BLOOD SPECIMENOrdering Facility: [facility] Address: [address] [place] [address] Performed By: #### 5 7021-8 ####[facility] LABIA [id number] [place] [address] [place] MCH (RBC) [Entitic mass] 31.3 pg Normal 26.0-34.0 [facility] Comment on above: Order Comment: Speci men Type: BLOOD SPECIMENOrdering Facility: [facility] Address: [address] [place] [address] Performed By: #### 5 7021-8 ####[facility] [id number] [place] [address] [place] MCHC (RBC) [Mass/Vol] 34.3 g/dL Normal 30.5-36.0 [facility] Comment on above: Order Comment: Speci men Type: BLOOD SPECIMENOrdering Facility: [facility] Address: [address] [place] [address] Performed By: #### 5 7021-8 ####[facility] LABIA [id number] [place] [address] [place] MCV (RBC) [Entitic vol] 91.1 fL Normal 80.0-100.0 [facility] Comment on above: Order Comment: Speci men Type: BLOOD SPECIMENOrdering Facility: [facility] Address: [address] [place] [address] Performed By: #### 5 7021-8 ####[facility] LABIA [id number] [place] [address] [place] Monocytes (Bld) [#/Vol] 0.36 10*3/uL Normal <0.87 [facility] Comment on above: Order Comment: Speci men Type: BLOOD SPECIMENOrdering Facility: [facility] Address: [address] [place] [address] Performed By: #### 5 7021-8 ####[facility] LABCLIA [id number] [place] [address] [place] Monocytes/100 WBC (Bld) 8.2 % Normal [facility] Comment on above: Order Comment: Speci men Type: BLOOD SPECIMENOrdering Facility: [facility] Address: [address] [place] [address] Performed By: #### 5 7021-8 ####[facility] LABCLIA [id number] [place] [address] [place] Neutrophils (Bld) [#/Vol] 2.62 10*3/uL Normal 1.45-7.50 [facility] Comment on above: Order Comment: Speci men Type: BLOOD SPECIMENOrdering Facility: [facility] Address: [address] [place] [address] Performed By: #### 5 7021-8 ####[facility] LABCLIA [id number] [place] [address] [place] Neutrophils/100 WBC (Bld) 59.7 % Normal [facility] Comment on above: Order Comment: Speci men Type: BLOOD SPECIMENOrdering Facility: [facility] Address: [address] [place] [address] Performed By: #### 5 7021-8 ####[facility] LABCLIA [id number] [place] [address] [place] Nucleated RBC (Bld) [#/Vol] 10*3/uL Normal <0.01 [facility] Comment on above: Order Comment: Speci men Type: BLOOD SPECIMENOrdering Facility: [facility] Address: [address] [place] [address] Performed By: #### 5 7021-8 ####[facility] LABCLIA [id number] [place] [address] [place] Nucleated RBC/100 WBC (Bld) [Ratio] 0.0 /100 WBC Normal [facility] Comment on above: Order Comment: Speci men Type: BLOOD SPECIMENOrdering Facility: [facility] Address: [address] [place] [address] Performed By: #### 5 7021-8 ####[facility] LABCLIA [id number] [place] [address] [place] Platelet mean volume (Bld) [Entitic vol] 11.2 fL Normal 9.0-12.7 [facility] Comment on above: Order Comment: Speci men Type: BLOOD SPECIMENOrdering Facility: [facility] Address: [address] [place] [address] Performed By: #### 5 7021-8 ####[facility] LABCLIA [id number] [place] [address] [place] Platelets (Bld) [#/Vol] 219 10*3/uL Normal 150-400 [facility] Comment on above: Order Comment: Speci men Type: BLOOD SPECIMENOrdering Facility: [facility] Address: [address] [place] [address] Performed By: #### 5 7021-8 ####[facility] LABCLIA [id number] [place] [address] [place] RBC (Bld) [#/Vol] 3.36 10*6/uL Low 3.90-5.20 [facility] Comment on above: Order Comment: Speci men Type: BLOOD SPECIMENOrdering Facility: [facility] Address: [address] [place] [address] Performed By: #### 5 7021-8 ####[facility] LABCLIA [id number] [place] [address] [place] WBC (Bld) [#/Vol] 4.39 10*3/uL Normal 3.70-11.00 [facility] Comment on above: Order Comment: Speci men Type: BLOOD SPECIMENOrdering Facility: [facility] Address: [address] [place] [address] Performed By: #### 5 7021-8 ####[facility] LABCLIA [id number] [place] [address] [place] CNOVon 07-06-2023 CNOV Normal [facility] CNPTOUTREACHon 07-06-2023 CNPTOUTREACH Normal [facility] CT FLANK WO IVCONon 07-06-19 CT FLANK WO IVCON Normal [facility] ED NOTEon 07-06-2023 ED NOTE Normal [facility] ED NOTE HNO ID: [id number] Author: TG MUNOZ, DEE Service: Emergency Medicine Author Type: Registered Nurse Type: ED Notes Filed: 07/06/2023 20:35 Note Text: 0 mL post void residual. Normal [facility] ED NOTE HNO ID: [id number] Author: CORIE LINK RN Service: ? Author Type: Registered Nurse Type: ED Notes Filed: 07/06/2023 15:58 Note Text: Bed: E18-10 Expected date: Expected time: Means of arrival: Comments: HOLD: JOSE Normal [facility] ED PROV NOTEon 07-06-2023 ED PROV NOTE Normal [facility] ED Triage Noteon 07-06-2023 ED Triage Note Normal [facility] URINALYSIS, REFLEX MICROSCOP ICon 07-06-2023 Bilirubin Ql (U) Negative Negative [facility] Clarity (Unsp spec) Clear Clear [facility] Color (U) Light Yellow Yellow [facility] Glucose Test strip (U) [Mass/Vol] Negative Trace, Negative [facility] Hemoglobin Ql (U) Negative Negative, Trace [facility] Interpretation and review of laboratory results Normal [facility] Ketones Ql (U) Negative Negative, Trace [facility] Leukocyte esterase Test strip Ql (U) Negative Negative, 25 Patito/uL [facility] Nitrite Ql (U) Negative Negative [facility] pH (U) 7.0 [pH] 5.0 - 8.0 [facility] Protein (U) [Mass/Vol] Negative Trace, Negative [facility] Specific gravity (U) [Rel density] 1.010 1.005 - 1.030 [facility] Urobilinogen Ql (U) Normal Normal [facility] Bilirubin Ql (U) Negative Normal [facility] Comment on above: Order Comment: Speci men Type: URINE SPECIMENOrdering Facility: [facility] Address: [address] [place] [address] Performed By: #### L [id number] ####[facility] LABIA [id number] [place] [address] [place] Clarity (Unsp spec) Clear Normal Clear [facility] Comment on above: Order Comment: Speci men Type: URINE SPECIMENOrdering Facility: [facility] Address: [address] [place] [address] Performed By: #### L [id number] ####[facility] LABIA [id number] [place] [address] [place] Color (U) Light Yellow Normal Yellow [facility] Comment on above: Order Comment: Speci men Type: URINE SPECIMENOrdering Facility: [facility] Address: [address] [place] [address] Performed By: #### L [id number] ####[facility] LABCLIA [id number] [place] [address] [place] Glucose Test strip (U) [Mass/Vol] Negative Normal Trace, Negative [facility] Comment on above: Order Comment: Speci men Type: URINE SPECIMENOrdering Facility: [facility] Address: [address] [place] [address] Performed By: #### L [id number] ####[facility] LABCLIA [id number] [place] [address] [place] Hemoglobin Ql (U) Negative Normal Negative, Trace Cl [facility] Comment on above: Order Comment: Speci men Type: URINE SPECIMENOrdering Facility: [facility] Address: [address] [place] [address] Performed By: #### L [id number] ####[facility] LABCLIA [id number] [place] [address] [place] Ketones Ql (U) Negative Normal Negative, Trace Vel [facility] Comment on above: Order Comment: Speci men Type: URINE SPECIMENOrdering Facility: [facility] Address: [address] [place] [address] Performed By: #### L [id number] ####[facility] LABCLIA [id number] [place] [address] [place] Leukocyte esterase Test strip Ql (U) Negative Normal Negative, 25 Patito/uL [facility] Comment on above: Order Comment: Speci men Type: URINE SPECIMENOrdering Facility: [facility] Address: [address] [place] [address] Performed By: #### L [id number] ####[facility] LABCLIA [id number] [place] [address] [place] Nitrite Ql (U) Negative Normal Negative [facility] Comment on above: Order Comment: Speci men Type: URINE SPECIMENOrdering Facility: [facility] Address: [address] [place] [address] Performed By: #### L [id number] ####[facility] LABCLIA [id number] [place] [address] [place] pH (U) 7.0 [pH] Normal 5.0-8.0 [facility] Comment on above: Order Comment: Speci men Type: URINE SPECIMENOrdering Facility: [facility] Address: [address] [place] [address] Performed By: #### L [id number] ####[facility] LABCLIA [id number] [place] [address] [place] Protein (U) [Mass/Vol] Negative Normal Trace, Negative [facility] Comment on above: Order Comment: Speci men Type: URINE SPECIMENOrdering Facility: [facility] Address: [address] [place] [address] Performed By: #### L [id number] ####[facility] LABCLIA [id number] [place] [address] [place] Specific gravity (U) [Rel density] 1.010 Normal 1.005-1.030 [facility] Comment on above: Order Comment: Speci men Type: URINE SPECIMENOrdering Facility: [facility] Address: [address] [place] [address] Performed By: #### L [id number] ####[facility] LABIA [id number] [place] [address] [place] Urobilinogen Ql (U) Normal Normal Normal [facility] Comment on above: Order Comment: Speci men Type: URINE SPECIMENOrdering Facility: [facility] Address: [address] [place] [address] Performed By: #### L [id number] ####[facility] LABIA [id number] [place] [address] [place] Urinalysis complete panel (U )on 07-06-2023 Bacteria LM.HPF (Urine sed) [#/Area] Negative Normal Negative [facility] Comment on above: Order Comment: Speci men Type: URINE SPECIMENOrdering Facility: [facility] Address: [address] [place] [address] Performed By: #### 2 4356-8 ####[facility] LABIA [id number] [place] [address] [place] Bilirubin Ql (U) Negative Normal Negative [facility] Comment on above: Order Comment: Speci men Type: URINE SPECIMENOrdering Facility: [facility] Address: [address] [place] [address] Performed By: #### 2 4356-8 ####[facility] LABCLIA [id number] [place] [address] [place] Clarity (Unsp spec) Clear Normal Clear [facility] Comment on above: Order Comment: Speci men Type: URINE SPECIMENOrdering Facility: [facility] Address: [address] [place] [address] Performed By: #### 2 4356-8 ####[facility] LABCLIA [id number] [place] [address] [place] Color (U) Yellow Normal Yellow [facility] Comment on above: Order Comment: Speci men Type: URINE SPECIMENOrdering Facility: [facility] Address: [address] [place] [address] Performed By: #### 2 4356-8 ####[facility] LABCLIA [id number] [place] [address] [place] Epithelial cells LM.HPF (Urine sed) [#/Area] None Seen Normal [facility] Comment on above: Order Comment: Speci men Type: URINE SPECIMENOrdering Facility: [facility] Address: [address] [place] [address] Performed By: #### 2 4356-8 ####[facility] LABCLIA [id number] [place] [address] [place] Glucose Test strip (U) [Mass/Vol] Negative Normal Negative [facility] Comment on above: Order Comment: Speci men Type: URINE SPECIMENOrdering Facility: [facility] Address: [address] [place] [address] Performed By: #### 2 4356-8 ####[facility] LABCLIA [id number] [place] [address] [place] Hemoglobin Ql (U) Negative Normal Negative [facility] Comment on above: Order Comment: Speci men Type: URINE SPECIMENOrdering Facility: [facility] Address: [address] [place] [address] Performed By: #### 2 4356-8 ####[facility] LABCLIA [id number] [place] [address] [place] Hyaline casts (Urine sed) [#/Area] 0 /[LPF] Normal 0 /LPF [facility] Comment on above: Order Comment: Speci men Type: URINE SPECIMENOrdering Facility: [facility] Address: [address] [place] [address] Performed By: #### 2 4356-8 ####[facility] LABCLIA [id number] [place] [address] [place] Ketones Ql (U) Negative Normal Negative [facility] Comment on above: Order Comment: Speci men Type: URINE SPECIMENOrdering Facility: [facility] Address: [address] [place] [address] Performed By: #### 2 4356-8 ####[facility] LABCLIA [id number] [place] [address] [place] Leukocyte esterase Test strip Ql (U) Negative Normal Negative [facility] Comment on above: Order Comment: Speci men Type: URINE SPECIMENOrdering Facility: [facility] Address: [address] [place] [address] Performed By: #### 2 4356-8 ####[facility] LABCLIA [id number] [place] [address] [place] Nitrite Ql (U) Negative Normal Negative [facility] Comment on above: Order Comment: Speci men Type: URINE SPECIMENOrdering Facility: [facility] Address: [address] [place] [address] Performed By: #### 2 4356-8 ####[facility] LABCLIA [id number] [place] [address] [place] pH (U) 7.5 [pH] Normal <8.5 [facility] Comment on above: Order Comment: Speci men Type: URINE SPECIMENOrdering Facility: [facility] Address: [address] [place] [address] Performed By: #### 2 4356-8 ####[facility] LABIA [id number] [place] [address] [place] Protein (U) [Mass/Vol] Negative Normal Negative [facility] Comment on above: Order Comment: Speci men Type: URINE SPECIMENOrdering Facility: [facility] Address: [address] [place] [address] Performed By: #### 2 4356-8 ####[facility] [id number] [place] [address] [place] RBC LM.HPF (Urine sed) [#/Area] 0-2 /HPF Normal 0-2 /HPF [facility] Comment on above: Order Comment: Speci men Type: URINE SPECIMENOrdering Facility: [facility] Address: [address] [place] [address] Performed By: #### 2 4356-8 ####[facility] [id number] [place] [address] [place] Specific gravity (U) [Rel density] 1.020 Normal 1.005-1.030 [facility] Comment on above: Order Comment: Speci men Type: URINE SPECIMENOrdering Facility: [facility] Address: [address] [place] [address] Performed By: #### 2 4356-8 ####[facility] LABIA [id number] [place] [address] [place] Urobilinogen Ql (U) 1.0 EU/dL Normal 0.2-1.0 EU/dL [facility] Comment on above: Order Comment: Speci men Type: URINE SPECIMENOrdering Facility: [facility] Address: [address] [place] [address] Performed By: #### 2 4356-8 ####[facility] [id number] [place] [address] [place] WBC LM.HPF (Urine sed) [#/Area] 0-5 /HPF Normal 0-5 /HPF [facility] Comment on above: Order Comment: Speci men Type: URINE SPECIMENOrdering Facility: [facility] Address: [address] [place] [address] Performed By: #### 2 4356-8 ####[facility] LABIA [id number] [place] [address] [place] XR CHEST 2V FRONTAL/LATon XR CHEST 2V FRONTAL/LAT Normal [facility] Glucose Test strip manual (B ld) [Mass/Vol]on 07-03-2023 Glucose [Mass/Vol] 121 mg/dL High 74 - 99 mg/dL [facility] Interpretation and review of laboratory results Abnormal [facility] Glucose [Mass/Vol] 121 mg/dL High 74-99 [facility] Comment on above: Performed By: #### 2 4356-8 #### MELISA Galvan ([id number]) [facility] (MW) [address] [place] [address] CBC panel Auto (Bld)on 07-01 Erythrocyte distribution width (RBC) [Ratio] 13.4 % 11.5 - 14.5 % [facility] Hematocrit (Bld) [Volume fraction] 35.5 % Low 36.0 - 46.0 % [facility] Hemoglobin (Bld) [Mass/Vol] 11.8 g/dL Low 12.0 - 16.0 g/dL [facility] Interpretation and review of laboratory results Abnormal [facility] MCH (RBC) [Entitic mass] 30.3 pg 26.0 - 34.0 pg [facility] MCHC (RBC) [Mass/Vol] 33.2 g/dL 32.0 - 36.0 g/dL [facility] MCV (RBC) [Entitic vol] 91 fL 80 - 100 fL [facility] Nucleated RBC/100 WBC (Bld) [Ratio] 0.0 % [facility] Platelets (Bld) [#/Vol] 223 10*3/uL [facility] RBC (Bld) [#/Vol] 3.89 10*6/uL Low [facility] WBC (Bld) [#/Vol] 4.5 10*3/uL [facility] Erythrocyte distribution width (RBC) [Ratio] 13.4 % Normal 11.5-14.5 [facility] Comment on above: Performed By: #### 2 4356-8 #### MELISA Galvan ([id number]) [facility] () [address] [place] [address] Hematocrit (Bld) [Volume fraction] 35.5 % Low 36.0-46.0 [facility] Comment on above: Performed By: #### 2 4356-8 #### MELISA Galvan ([id number]) [facility] () [address] [place] [address] Hemoglobin (Bld) [Mass/Vol] 11.8 g/dL Low 12.0-16.0 [facility] Comment on above: Performed By: #### 2 4356-8 #### MELISA Galvan ([id number]) [facility] () [address] [place] [address] MCH (RBC) [Entitic mass] 30.3 pg Normal 26.0-34.0 [facility] Comment on above: Performed By: #### 2 4356-8 #### MELISA Galvan ([id number]) [facility] () [address] [place] [address] MCHC (RBC) [Mass/Vol] 33.2 g/dL Normal 32.0-36.0 [facility] Comment on above: Performed By: #### 2 4356-8 #### MELISA Galvna ([id number]) [facility] () [address] [place] [address] MCV (RBC) [Entitic vol] 91 fL Normal 80-100 [facility] Comment on above: Performed By: #### 2 4356-8 #### MELISA Galvan ([id number]) [facility] () [address] [place] [address] Nucleated RBC/100 WBC (Bld) [Ratio] 0.0 /100 WBCs Normal 0.0-0.0 [facility] Comment on above: Performed By: #### 2 4356-8 #### MELISA Galvan (32348) [facility] () [address] [place] [address] Platelets (Bld) [#/Vol] 223 x10*3/uL Normal 150-450 [facility] Comment on above: Performed By: #### 2 4356-8 #### MELISA Galvan ([id number]) [facility] () [address] [place] [address] RBC (Bld) [#/Vol] 3.89 x10*6/uL Low 4.00-5.20 [facility] Comment on above: Performed By: #### 2 4356-8 #### MELISA Galvan ([id number]) [facility] () [address] [place] [address] WBC (Bld) [#/Vol] 4.5 x10*3/uL Normal 4.4-11.3 [facility] Comment on above: Performed By: #### 2 4356-8 #### MELISA Galvan (78509) [facility] () [address] [place] [address] Glucose Test strip manual (B ld) [Mass/Vol]on 07-02-2023 Glucose [Mass/Vol] 103 mg/dL High 74 - 99 mg/dL [facility] Interpretation and review of laboratory results Abnormal [facility] Glucose [Mass/Vol] 103 mg/dL High 74-99 [facility] Comment on above: Performed By: #### 2 4356-8 #### MELISA Galvan ([id number]) [facility] () [address] [place] [address] Glucose [Mass/Vol] 112 mg/dL High 74 - 99 mg/dL [facility] Interpretation and review of laboratory results Abnormal [facility] Glucose [Mass/Vol] 112 mg/dL High 74-99 [facility] Comment on above: Performed By: #### 2 4356-8 #### MELISA Galvan (83254) [facility] () [address] [place] [address] Glucose [Mass/Vol] 99 mg/dL 74 - 99 mg/dL [facility] Interpretation and review of laboratory results Normal [facility] Glucose [Mass/Vol] 99 mg/dL Normal 74-99 [facility] Comment on above: Performed By: #### 2 4356-8 #### MELISA Galvan (75745) [facility] () [address] [place] [address] Glucose [Mass/Vol] 135 mg/dL High 74 - 99 mg/dL [facility] Interpretation and review of laboratory results Abnormal [facility] Glucose [Mass/Vol] 135 mg/dL High 74-99 [facility] [facility] Comment on above: Performed By: #### 2 4356-8 #### MELISA Galvan ([id number]) [facility] () [address] [place] [address] Renal function 2000 panelon 07-02-2023 Albumin [Mass/Vol] 4.0 g/dL 3.5 - 5.0 g/dL [facility] Anion gap [Moles/Vol] 11 mmol/L NINF - 19 mmol/L [facility] Calcium [Mass/Vol] 8.6 mg/dL 8.5 - 10.4 mg/dL [facility] Chloride [Moles/Vol] 103 mmol/L 97 - 107 mmol/L [facility] CO2 [Moles/Vol] 23 mmol/L Low 24 - 31 mmol/L [facility] Creatinine [Mass/Vol] 0.70 mg/dL 0.40 - 1.60 mg/dL [facility] eGFR - PINF [facility] Comment on above: Calculations of jessica mated GFR are performed using the 2020 CKD-EPI Study Refit equation without the race variable for the IDMS-Traceable creatinine methods. https://jasn.asnjournals.org/content//ASN.24041047 88 Glucose [Mass/Vol] 101 mg/dL High 65 - 99 mg/dL [facility] Interpretation and review of laboratory results Abnormal [facility] Phosphate [Mass/Vol] 4.0 mg/dL 2.5 - 4.5 mg/dL [facility] Potassium [Moles/Vol] 3.9 mmol/L 3.4 - 5.1 mmol/L [facility] Sodium [Moles/Vol] 137 mmol/L 133 - 145 mmol/L [facility] Urea nitrogen [Mass/Vol] 13 mg/dL 8 - 25 mg/dL [facility] Albumin [Mass/Vol] 4.0 g/dL Normal 3.5-5.0 [facility] Comment on above: Performed By: #### 2 4356-8 #### MELISA Galvan ([id number]) [facility] () [address] [place] [address] Anion gap [Moles/Vol] 11 mmol/L Normal <=19 [facility] Comment on above: Performed By: #### 2 4356-8 #### MELISA Galvan ([id number]) [facility] () [address] [place] [address] Calcium [Mass/Vol] 8.6 mg/dL Normal 8.5-10.4 [facility] Comment on above: Performed By: #### 2 4356-8 #### MELISA Galvan ([id number]) [facility] () [address] [place] [address] Chloride [Moles/Vol] 103 mmol/L Normal 97-107 [facility] Comment on above: Performed By: #### 2 4356-8 #### MELISA Galvan ([id number]) [facility] () [address] [place] [address] CO2 [Moles/Vol] 23 mmol/L Low 24-31 [facility] Comment on above: Performed By: #### 2 4356-8 #### MELISA Galvan ([id number]) [facility] () [address] [place] [address] Creatinine [Mass/Vol] 0.70 mg/dL Normal 0.40-1.60 [facility] Comment on above: Performed By: #### 2 4356-8 #### MELISA Galvan ([id number]) [facility] () [address] [place] [address] GFR/1.73 sq M.predicted MDRD (S/P/Bld) [Vol rate/Area] mL/min/{1.73_m2} Normal >60 [facility] Comment on above: Result Comment: Calc ulations of estimated GFR are performed using the 2020 CKD-EPI Study Refit equation without the race variable for the IDMS-Traceable creatinine methods. https://jasn.asnjournals.org/content/early/ASN.58047938 88 Performed By: #### 2 4356-8 #### MELISA Galvan ([id number]) [facility] () [address] [place] [address] Glucose [Mass/Vol] 101 mg/dL High 65-99 [facility] Comment on above: Performed By: #### 2 4356-8 #### MELISA Galvan ([id number]) [facility] () [address] [place] [address] Phosphate [Mass/Vol] 4.0 mg/dL Normal 2.5-4.5 [facility] Comment on above: Performed By: #### 2 4356-8 #### MELISA Galvan ([id number]) [facility] () [address] [place] [address] Potassium [Moles/Vol] 3.9 mmol/L Normal 3.4-5.1 [facility] Comment on above: Performed By: #### 2 4356-8 #### MELISA Galvan ([id number]) [facility] () [address] [place] [address] Sodium [Moles/Vol] 137 mmol/L Normal 133-145 [facility] Comment on above: Performed By: #### 2 4356-8 #### MELISA Galvan (93729) [facility] () [address] [place] [address] Urea nitrogen [Mass/Vol] 13 mg/dL Normal 8-25 [facility] Comment on above: Performed By: #### 2 4356-8 #### MELISA Galvan (88455) [facility] () [address] [place] [address] CBC panel Auto (Bld)on 06-30 Erythrocyte distribution width (RBC) [Ratio] 13.7 % 11.5 - 14.5 % [facility] Hematocrit (Bld) [Volume fraction] 36.7 % 36.0 - 46.0 % [facility] Hemoglobin (Bld) [Mass/Vol] 12.0 g/dL 12.0 - 16.0 g/dL [facility] Interpretation and review of laboratory results Abnormal [facility] MCH (RBC) [Entitic mass] 31.1 pg 26.0 - 34.0 pg [facility] MCHC (RBC) [Mass/Vol] 32.7 g/dL 32.0 - 36.0 g/dL [facility] MCV (RBC) [Entitic vol] 95 fL 80 - 100 fL [facility] Nucleated RBC/100 WBC (Bld) [Ratio] 0.0 % [facility] Platelets (Bld) [#/Vol] 228 10*3/uL [facility] RBC (Bld) [#/Vol] 3.86 10*6/uL [facility] WBC (Bld) [#/Vol] 3.3 10*3/uL [facility] Erythrocyte distribution width (RBC) [Ratio] 13.7 % Normal 11.5-14.5 [facility] Comment on above: Performed By: #### 5 8410-2 #### MELISA Galvan ([id number]) [facility] () [address] [place] [address] Hematocrit (Bld) [Volume fraction] 36.7 % Normal 36.0-46.0 [facility] Comment on above: Performed By: #### 5 8410-2 #### MELISA Galvan ([id number]) [facility] () [address] [place] [address] Hemoglobin (Bld) [Mass/Vol] 12.0 g/dL Normal 12.0-16.0 [facility] Comment on above: Performed By: #### 5 8410-2 #### MELISA Galvan (14033) [facility] () [address] [place] [address] MCH (RBC) [Entitic mass] 31.1 pg Normal 26.0-34.0 [facility] Comment on above: Performed By: #### 5 8410-2 #### MELISA Galvan ([id number]) [facility] () [address] [place] [address] MCHC (RBC) [Mass/Vol] 32.7 g/dL Normal 32.0-36.0 [facility] Comment on above: Performed By: #### 5 8410-2 #### MELISA Galvan (18923) [facility] () [address] [place] [address] MCV (RBC) [Entitic vol] 95 fL Normal 80-100 [facility] Comment on above: Performed By: #### 5 8410-2 #### MELISA Galvan ([id number]) [facility] () [address] [place] [address] Nucleated RBC/100 WBC (Bld) [Ratio] 0.0 /100 WBCs Normal 0.0-0.0 [facility] Comment on above: Performed By: #### 5 8410-2 #### MELISA Galvan (22475) [facility] () [address] [place] [address] Platelets (Bld) [#/Vol] 228 x10*3/uL Normal 150-450 [facility] Comment on above: Performed By: #### 5 8410-2 #### MELISA Galvan (49547) [facility] () [address] [place] [address] RBC (Bld) [#/Vol] 3.86 x10*6/uL Low 4.00-5.20 [facility] Comment on above: Performed By: #### 5 8410-2 #### EMLISA Galvan ([id number]) [facility] () [address] [place] [address] WBC (Bld) [#/Vol] 3.3 x10*3/uL Low 4.4-11.3 [facility] Comment on above: Performed By: #### 5 8410-2 #### MELISA Galvan ([id number]) [facility] () [address] [place] [address] Glucose Test strip manual (B ld) [Mass/Vol]on 07-01-2023 Glucose [Mass/Vol] 104 mg/dL High 74 - 99 mg/dL [facility] Interpretation and review of laboratory results [facility] Glucose [Mass/Vol] 104 mg/dL High 74-99 [facility] Comment on above: Performed By: #### 5 8410-2 #### MELISA Galvan (47340) [facility] () [address] [place] [address] Glucose [Mass/Vol] 92 mg/dL 74 - 99 mg/dL [facility] Interpretation and review of laboratory results Normal [facility] Glucose [Mass/Vol] 92 mg/dL Normal 74-99 [facility] Comment on above: Performed By: #### 5 8410-2 #### MELISA Galvan (39729) [facility] () [address] [place] [address] Glucose [Mass/Vol] 88 mg/dL 74 - 99 mg/dL [facility] Interpretation and review of laboratory results Normal [facility] Glucose [Mass/Vol] 88 mg/dL Normal 74-99 [facility] Comment on above: Performed By: #### 5 8410-2 #### MELISA Galvan (31691) [facility] () [address] [place] [address] Glucose [Mass/Vol] 105 mg/dL High 74 - 99 mg/dL [facility] Interpretation and review of laboratory results Abnormal [facility] Glucose [Mass/Vol] 105 mg/dL High 74-99 [facility] Comment on above: Performed By: #### 5 8410-2 #### MELISA Galvan (50034) [facility] () [address] [place] [address] Glucose [Mass/Vol] 86 mg/dL 74 - 99 mg/dL [facility] Interpretation and review of laboratory results Normal [facility] Glucose [Mass/Vol] 86 mg/dL Normal 74-99 [facility] Comment on above: Performed By: #### 5 8410-2 #### MELISA Galvan (13006) [facility] () [address] [place] [address] Glucose [Mass/Vol] 98 mg/dL 74 - 99 mg/dL [facility] Interpretation and review of laboratory results Normal [facility] Glucose [Mass/Vol] 98 mg/dL Normal 74-99 [facility] Comment on above: Performed By: #### 5 8410-2 #### MELISA Galvan (81626) [facility] () [address] [place] [address] [facility] 2023 Home Health Records [id number] Normal [facility] Magnesiumon 07-01-2023 Magnesium [Mass/Vol] 2.00 mg/dL 1.60 - 3.10 mg/dL [facility] Magnesium [Mass/Vol] 2.00 mg/dL Normal 1.60-3.10 [facility] Comment on above: Performed By: #### 5 8410-2 #### MELISA Galvan (55954) [facility] () [address] [place] [address] Magnesium [Mass/Vol]on 06-30 Interpretation and review of laboratory results Normal [facility] Renal function 2000 panelon 07-01-2023 Albumin [Mass/Vol] 3.8 g/dL 3.5 - 5.0 g/dL [facility] Anion gap [Moles/Vol] 12 mmol/L NINF - 19 mmol/L [facility] Calcium [Mass/Vol] 8.5 mg/dL 8.5 - 10.4 mg/dL [facility] Chloride [Moles/Vol] 106 mmol/L 97 - 107 mmol/L [facility] CO2 [Moles/Vol] 21 mmol/L Low 24 - 31 mmol/L [facility] Creatinine [Mass/Vol] 0.70 mg/dL 0.40 - 1.60 mg/dL [facility] eGFR - PINF [facility] Comment on above: Calculations of jessica mated GFR are performed using the 2020 CKD-EPI Study Refit equation without the race variable for the IDMS-Traceable creatinine methods. https://jasn.asnjournals.org/content//ASN.99409673 88 Glucose [Mass/Vol] 113 mg/dL High 65 - 99 mg/dL [facility] Interpretation and review of laboratory results Abnormal [facility] Phosphate [Mass/Vol] 5.4 mg/dL High 2.5 - 4.5 mg/dL [facility] Potassium [Moles/Vol] 3.9 mmol/L 3.4 - 5.1 mmol/L [facility] Sodium [Moles/Vol] 139 mmol/L 133 - 145 mmol/L [facility] Urea nitrogen [Mass/Vol] 12 mg/dL 8 - 25 mg/dL [facility] Albumin [Mass/Vol] 3.8 g/dL Normal 3.5-5.0 [facility] Comment on above: Performed By: #### 5 8410-2 #### MELISA Galvan ([id number]) [facility] () [address] [place] [address] Anion gap [Moles/Vol] 12 mmol/L Normal <=19 [facility] Comment on above: Performed By: #### 5 8410-2 #### MELISA Galvan (14754) [facility] () [address] [place] [address] Calcium [Mass/Vol] 8.5 mg/dL Normal 8.5-10.4 [facility] Comment on above: Performed By: #### 5 8410-2 #### MELISA Galvan (25770) [facility] () [address] [place] [address] Chloride [Moles/Vol] 106 mmol/L Normal 97-107 [facility] Comment on above: Performed By: #### 5 8410-2 #### MELISA Galvan (16144) [facility] () [address] [place] [address] CO2 [Moles/Vol] 21 mmol/L Low 24-31 [facility] Comment on above: Performed By: #### 5 8410-2 #### MELISA Galvan (94840) [facility] () [address] [place] [address] Creatinine [Mass/Vol] 0.70 mg/dL Normal 0.40-1.60 [facility] Comment on above: Performed By: #### 5 8410-2 #### MELISA Galvan (50004) [facility] () [address] [place] [address] GFR/1.73 sq M.predicted MDRD (S/P/Bld) [Vol rate/Area] mL/min/{1.73_m2} Normal >60 [facility] Comment on above: Result Comment: Calc ulations of estimated GFR are performed using the 2020 CKD-EPI Study Refit equation without the race variable for the IDMS-Traceable creatinine methods. https://jasn.asnjournals.org/content/early//ASN.81639811 88 Performed By: #### 5 8410-2 #### MELISA Galvan (13385) [facility] () [address] [place] [address] Glucose [Mass/Vol] 113 mg/dL High 65-99 [facility] Comment on above: Performed By: #### 5 8410-2 #### MELISA Galvan (89105) [facility] () [address] [place] [address] Phosphate [Mass/Vol] 5.4 mg/dL High 2.5-4.5 [facility] Comment on above: Performed By: #### 5 8410-2 #### MELISA Galvan (12942) [facility] () [address] [place] [address] Potassium [Moles/Vol] 3.9 mmol/L Normal 3.4-5.1 [facility] Comment on above: Performed By: #### 5 8410-2 #### MELISA Galvan (92095) [facility] () [address] [place] [address] Sodium [Moles/Vol] 139 mmol/L Normal 133-145 [facility] Comment on above: Performed By: #### 5 8410-2 #### MELISA POOLESawrat Galvan (07236) [facility] () [address] [place] [address] Urea nitrogen [Mass/Vol] 12 mg/dL Normal 8-25 [facility] Comment on above: Performed By: #### 5 8410-2 #### MELISA ALEXANDRO J (64001) [facility] () [address] [place] [address] Vascular US mesenteric arter y duplex completeon 07-01-2023 [facility] [address] [place] [address] Vascular Lab Report VASC US MESENTERIC ARTERY DUPLEX COMPLETE Patient Name: ABBEY Oneil Physician: [id number] Sherry Magaña MD Study Date: 06/30/2023 Ordering Provider: [id number] JAMIL GAVIN MRN/PID: [id number] Fellow: Technologist: Leia Degroot Neva Date of /Age: 2 1990 / 33 years Technologist 2: Gender: F Admission Status: Inpatient Location Performed: [facility] 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 CPT Codes: 46170 Mesenteric Duplex scan Pertinent Release of the [...] PSV 89 cm/s KEELY PSV 105 cm/s 33231Ivon Magaña MD Brandy Magaña MD Electronically Amended 06/30/2023, 12:15 PM Final (Amended) [facility] Work Phone: [facility] Work Phone: XR CHEST 1 VIEWon 07-01-2023 XR CHEST 1 VIEW Interpreted By: Dotty Salcido, STUDY: XR CHEST 1 VIEW 07/01/2023 1:30 pm INDICATION: Signs/Symptoms:PICC line position verification COMPARISON: 03/17/2023 ACCESSION NUMBER(S): [id number] ORDERING CLINICIAN: DOLORES COX TECHNIQUE: Single AP view chest FINDINGS: Cardiomediastinal silhouette is within normal limits. Right-sided PICC line identified with tip in the region of the mid SVC. No infiltrate or effusion is identified. Visualized osseous structures unremarkable. IMPRESSION: 1. Right PICC line placement with tip in the mid SVC. Signed by: Dotty Salcido 07/01/2023 1:46 PM Dictation workstation: [id number] [facility] XR Chest Single viewon 06-30 1. Right PICC line placement with tip in the mid SVC. Signed by: Dotty Salcido 07/01/2023 1:46 PM Dictation workstation: [id number] [facility] Interpreted By: Dotty Salcido, STUDY: XR CHEST 1 VIEW 07/01/2023 1:30 pm INDICATION: Signs/Symptoms:PICC line position verification COMPARISON: 03/17/2023 ACCESSION NUMBER(S): [id number] ORDERING CLINICIAN: DOLORES COX TECHNIQUE: Single AP view chest FINDINGS: Cardiomediastinal silhouette is within normal limits. Right-sided PICC line identified with tip in the region of the mid SVC. No infiltrate or effusion is identified. Visualized osseous structures unremarkable. MMODAL Dotty Salcido MD - 07/01/2023 Interpreted By: Dotty Salcido, STUDY: XR CHEST 1 VIEW 07/01/2023 1:30 pm INDICATION: Signs/Symptoms:PICC line position verification COMPARISON: 03/17/2023 ACCESSION NUMBER(S): [id number] ORDERING CLINICIAN: DOLORES COX TECHNIQUE: Single AP view chest FINDINGS: Cardiomediastinal silhouette is within normal limits. Right-sided PICC line identified with tip in the region of the mid SVC. No infiltrate or effusion is identified. Visualized osseous structures unremarkable. IMPRESSION: 1. Right PICC line placement with tip in the mid SVC. Signed by: Dotty Salcido 07/01/2023 1:46 PM Dictation workstation: [id number] [facility] Work Phone: Radiology Study observation (narrative) [facility] Work Phone: XR Chest Single viewOrdered By: Dotty Salcido on 07-01-2023 [facility] Work Phone: CBC panel Auto (Bld)on 06-29 Erythrocyte distribution width (RBC) [Ratio] 13.8 % 11.5 - 14.5 % [facility] Hematocrit (Bld) [Volume fraction] 32.2 % Low 36.0 - 46.0 % [facility] Hemoglobin (Bld) [Mass/Vol] 10.8 g/dL Low 12.0 - 16.0 g/dL [facility] Interpretation and review of laboratory results Abnormal [facility] MCH (RBC) [Entitic mass] 31.0 pg 26.0 - 34.0 pg [facility] MCHC (RBC) [Mass/Vol] 33.5 g/dL 32.0 - 36.0 g/dL [facility] MCV (RBC) [Entitic vol] 93 fL 80 - 100 fL [facility] Nucleated RBC/100 WBC (Bld) [Ratio] 0.0 % [facility] Platelets (Bld) [#/Vol] 217 10*3/uL [facility] RBC (Bld) [#/Vol] 3.48 10*6/uL Low [facility] WBC (Bld) [#/Vol] 5.0 10*3/uL [facility] Erythrocyte distribution width (RBC) [Ratio] 13.8 % Normal 11.5-14.5 [facility] Comment on above: Performed By: #### 5 8410-2 ####MELISA Galvan (47190)[facility] ()[address] [place] [facility] [place] [address] Hematocrit (Bld) [Volume fraction] 32.2 % Low 36.0-46.0 [facility] Comment on above: Performed By: #### 5 8410-2 ####MELISA Galvan (48867)[facility] ()[address] [place] [facility] [place] [address] Hemoglobin (Bld) [Mass/Vol] 10.8 g/dL Low 12.0-16.0 [facility] Comment on above: Performed By: #### 5 8410-2 ####MELISA Galvan (06712)[facility] ()[address] [place] [facility] [place] [address] MCH (RBC) [Entitic mass] 31.0 pg Normal 26.0-34.0 [facility] Comment on above: Performed By: #### 5 8410-2 ####MELISA Galvan (42464)[facility] ()[address] [place] [address] MCHC (RBC) [Mass/Vol] 33.5 g/dL Normal 32.0-36.0 [facility] Comment on above: Performed By: #### 5 8410-2 ####MELISA Galvan (64323)[facility] ()[address] [place] [address] MCV (RBC) [Entitic vol] 93 fL Normal 80-100 [facility] Comment on above: Performed By: #### 5 8410-2 ####MELISA Galvan ([id number])[facility] ()[address] [place] [address] Nucleated RBC/100 WBC (Bld) [Ratio] 0.0 /100 WBCs Normal 0.0-0.0 [facility] Comment on above: Performed By: #### 5 8410-2 ####MELISA Galvan (17345)[facility] ()[address] [place] [address] Platelets (Bld) [#/Vol] 217 x10*3/uL Normal 150-450 [facility] Comment on above: Performed By: #### 5 8410-2 ####MELISA Galvan (14114)[facility] ()[address] [place] [address] RBC (Bld) [#/Vol] 3.48 x10*6/uL Low 4.00-5.20 [facility] Comment on above: Performed By: #### 5 8410-2 ####MELISA Galvan (15145)[facility] ()[address] [place] [address] WBC (Bld) [#/Vol] 5.0 x10*3/uL Normal 4.4-11.3 [facility] Comment on above: Performed By: #### 5 8410-2 ####MELISA Galvan ([id number])[facility] ()[address] [place] [address] CT ANGIO ABDOMEN PELVIS W AN D/OR WO IV IV CONTRASTon 06-30-2023 CT ANGIO ABDOMEN PELVIS W AND/OR WO IV IV CONTRAST Interpreted By: Audie Gutierrez, STUDY: CT ANGIO ABDOMEN PELVIS W AND/OR WO IV IV CONTRAST; 06/30/2023 10:56 am INDICATION: Signs/Symptoms:Carmela ac disease; COMPARISON: 06/29/2023 ACCESSION NUMBER(S): [id number] ORDERING CLINICIAN: TIFFANIE MENDEZ TECHNIQUE: Contiguous axial [...] Audie Gutierrez 06/30/2023 12:06 PM Dictation workstation: [id number] [facility] Comment on above: Order [...] Audie Gutierrez 06/30/2023 12:06 PM Dictation workstation: [id number] [facility] Interpreted By: Audie Gutierrez, STUDY: CT ANGIO ABDOMEN PELVIS W AND/OR WO IV IV CONTRAST; 06/30/2023 10:56 am INDICATION: Signs/Symptoms:Carmela ac disease; COMPARISON: 06/29/2023 ACCESSION NUMBER(S): [id number] ORDERING CLINICIAN: TIFFANIE MENDEZ TECHNIQUE: Contiguous axial [...] images of the lower thorax are unremarkable. MMODAL Audie Gutierrez MD - 06/30/2023 Interpreted By: Audie Gutierrez, STUDY: CT ANGIO ABDOMEN PELVIS W AND/OR WO IV IV CONTRAST; 06/30/2023 10:56 am INDICATION: Signs/Symptoms:Caremla ac disease; COMPARISON: 06/29/2023 ACCESSION NUMBER(S): [id number] ORDERING CLINICIAN: TIFFANIE MENDEZ TECHNIQUE: Contiguous axial [...] Audie Gutierrez 06/30/2023 12:06 PM Dictation workstation: [id number] [facility] Work Phone: Radiology Study observation (narrative) [facility] Work Phone: CTA Abdominal vessels and Pe lvis vessels WO and W contrast IVOrdered By: Audie Gutierrez on 06-30-2023 [facility] Work Phone: Comprehensive metabolic 2000 panelOrdered By: Cristina Blevins on 06-30-2023 Albumin [Mass/Vol] 3.8 g/dL 3.5 - 5.0 g/dL Un [facility] ALP (Bld) [Catalytic activity/Vol] 51 U/L 35 - 125 U/L [facility] ALT [Catalytic activity/Vol] 35 U/L 5 - 40 U/L [facility] Anion gap [Moles/Vol] 13 mmol/L NINF - 19 mmol/L [facility] AST [Catalytic activity/Vol] 52 U/L High 5 - 40 U/L [facility] Bilirubin [Mass/Vol] mg/dL 0.1 - 1.2 mg/dL [facility] Calcium [Mass/Vol] 9.1 mg/dL 8.5 - 10.4 mg/dL [facility] Chloride [Moles/Vol] 90 mmol/L Low 97 - 107 mmol/L [facility] CO2 [Moles/Vol] 19 mmol/L Low 24 - 31 mmol/L Unive [facility] Creatinine [Mass/Vol] 0.70 mg/dL 0.40 - 1.60 mg/dL [facility] eGFR - PINF [facility] Comment on above: Calculations of jessica mated GFR are performed using the 2020 CKD-EPI Study Refit equation without the race variable for the IDMS-Traceable creatinine methods. https://jasn.asnjournals.org/content/early/ASN.98497562 88 Glucose [Mass/Vol] 920 mg/dL Critically high 65 - 99 mg/d L [facility] Comment on above: Result rechecked Possible IV contamination. Results do not correlate with previous and post results. Patient was redraw . Interpretation and review of laboratory results Abnormal [facility] Potassium [Moles/Vol] 6.8 mmol/L Critically high 3.4 - 5.1 mmol/L [facility] Comment on above: Result rechecked Possible IV contamination. Results do not correlate with previus and post results. Patient was redrawn. Protein [Mass/Vol] 6.3 g/dL 5.9 - 7.9 g/dL [facility] Sodium [Moles/Vol] 122 mmol/L Low 133 - 145 mmol/L [facility] Comment on above: Result rechecked Urea nitrogen [Mass/Vol] 15 mg/dL 8 - 25 mg/dL [facility] Comprehensive metabolic 2000 panelon 06-30-2023 Albumin [Mass/Vol] 3.8 g/dL 3.5 - 5.0 g/dL Un [facility] ALP (Bld) [Catalytic activity/Vol] 52 U/L 35 - 125 U/L [facility] ALT [Catalytic activity/Vol] 34 U/L 5 - 40 U/L [facility] Anion gap [Moles/Vol] 10 mmol/L NINF - 19 mmol/L [facility] AST [Catalytic activity/Vol] 43 U/L High 5 - 40 U/L [facility] Bilirubin [Mass/Vol] 0.3 mg/dL 0.1 - 1.2 mg/dL [facility] Calcium [Mass/Vol] 8.8 mg/dL 8.5 - 10.4 mg/dL [facility] Chloride [Moles/Vol] 104 mmol/L 97 - 107 mmol/L [facility] CO2 [Moles/Vol] 23 mmol/L Low 24 - 31 mmol/L Unive [facility] Creatinine [Mass/Vol] 0.60 mg/dL 0.40 - 1.60 mg/dL [facility] eGFR - PINF [facility] Comment on above: Calculations of jessica mated GFR are performed using the 2020 CKD-EPI Study Refit equation without the race variable for the IDMS-Traceable creatinine methods. https://jasn.asnjournals.org/content///ASN.58315788 88 Glucose [Mass/Vol] 136 mg/dL High 65 - 99 mg/dL Uni [facility] Interpretation and review of laboratory results Abnormal [facility] Potassium [Moles/Vol] 3.9 mmol/L 3.4 - 5.1 mmol/L [facility] Protein [Mass/Vol] 6.3 g/dL 5.9 - 7.9 g/dL Un [facility] Sodium [Moles/Vol] 137 mmol/L 133 - 145 mmol/L [facility] Urea nitrogen [Mass/Vol] 14 mg/dL 8 - 25 mg/dL [facility] Albumin [Mass/Vol] 3.8 g/dL Normal 3.5-5.0 [facility] Comment on above: Performed By: #### 2 4323-8 ####MELISA Galvan ([id number])[facility] ()[address] [place] [address] ALP (Bld) [Catalytic activity/Vol] 52 U/L Normal 35-125 [facility] Comment on above: Performed By: #### 2 4322-8 ####MELISA Galvan ([id number])[facility] ()[address] [place] [address] ALT [Catalytic activity/Vol] 34 U/L Normal 5-40 [facility] Comment on above: Performed By: #### 2 432-8 ####MELISA Galvan ([id number])[facility] ()[address] [place] [address] Anion gap [Moles/Vol] 10 mmol/L Normal <=19 [facility] Comment on above: Performed By: #### 2 4323-8 ####MELISA Galvan ([id number])[facility] ()[address] [place] [address] AST [Catalytic activity/Vol] 43 U/L High 5-40 [facility] Comment on above: Performed By: #### 2 4323-8 ####MELISA Galvan ([id number])[facility] ()[address] [place] [address] Bilirubin [Mass/Vol] 0.3 mg/dL Normal 0.1-1.2 [facility] Comment on above: Performed By: #### 2 4323-8 ####MELISA Galvan ([id number])[facility] ()[address] [place] [address] Calcium [Mass/Vol] 8.8 mg/dL Normal 8.5-10.4 [facility] Comment on above: Performed By: #### 2 4323-8 ####MELISA Galvan ([id number])[facility] ()[address] [place] [address] Chloride [Moles/Vol] 104 mmol/L Normal 97-107 [facility] Comment on above: Performed By: #### 2 4323-8 ####MELISA Galvan ([id number])[facility] ()[address] [place] [address] CO2 [Moles/Vol] 23 mmol/L Low 24-31 [facility] Comment on above: Performed By: #### 2 432-8 ####MELISA Galvan (50989)[facility] ()[address] [place] [address] Creatinine [Mass/Vol] 0.60 mg/dL Normal 0.40-1.60 [facility] Comment on above: Performed By: #### 2 4323-8 ####MELISA Galvan (83335)[facility] ()[address] [place] [address] GFR/1.73 sq M.predicted MDRD (S/P/Bld) [Vol rate/Area] mL/min/{1.73_m2} Normal >60 [facility] Comment on above: Result Comment: Calc ulations of estimated GFR are performed using the 2020 CKD-EPI Study Refit equation without the race variable for the IDMS-Traceable creatinine methods. https://jasn.asnjournals.org/content/early//ASN.49973037 88 Performed By: #### 2 4323-8 ####MELISA Galvan ([id number])[facility] ()[address] [place] [address] Glucose [Mass/Vol] 136 mg/dL High 65-99 [facility] Comment on above: Performed By: #### 2 4323-8 ####MELISA Galvan ([id number])[facility] ()[address] [place] [address] Potassium [Moles/Vol] 3.9 mmol/L Normal 3.4-5.1 [facility] Comment on above: Performed By: #### 2 4323-8 ####MELISA Galvan ([id number])[facility] ()[address] [place] [address] Protein [Mass/Vol] 6.3 g/dL Normal 5.9-7.9 [facility] Comment on above: Performed By: #### 2 4323-8 ####MELISA Galvan (80828)[facility] ()[address] [place] [address] Sodium [Moles/Vol] 137 mmol/L Normal 133-145 [facility] Comment on above: Performed By: #### 2 4323-8 ####MELISA Galvan (42281)[facility] ()[address] [place] [address] Urea nitrogen [Mass/Vol] 14 mg/dL Normal 8-25 [facility] Comment on above: Performed By: #### 2 4323-8 ####MELISA Galvan ([id number])[facility] ()[address] [place] [address] Extra Urine [place] Tubeon 06-15 Extra Tube Hold for add-ons. [facility] Comment on above: Auto resulted. [facility] Glucose Test strip manual (B ld) [Mass/Vol]on 06-30-2023 Glucose [Mass/Vol] 117 mg/dL High 74 - 99 mg/dL [facility] Interpretation and review of laboratory results Abnormal [facility] Glucose [Mass/Vol] 117 mg/dL High 74-99 [facility] Comment on above: Performed By: #### 2 341-6 ####MELISA Galvan (99734)[facility] ()[address] [place] [address] Glucose [Mass/Vol] 77 mg/dL 74 - 99 mg/dL Uni [facility] Interpretation and review of laboratory results Normal [facility] Glucose [Mass/Vol] 77 mg/dL Normal 74-99 [facility] Comment on above: Performed By: #### 2 341-6 ####MELISA Galvan ([id number])[facility] ()[address] [facility] [place] [address] HCG ( test) IA.rapi d Ql (U)Ordered By: Agustin Cedillo on 06-30-2023 HCG ( test) Ql (U) Negative NEGATIVE [facility] Interpretation and review of laboratory results Normal [facility] HCG ( test) IA.rapi d Ql (U)on 06-30-2023 HCG ( test) Ql (U) Negative Normal NEGATIVE [facility] Comment on above: Performed By: #### 8 0384-1 ####MELISA Galvan ([id number])[facility] ()[address] [place] [address] Magnesiumon 06-30-2023 Magnesium [Mass/Vol] 1.90 mg/dL 1.60 - 3.10 mg/dL [facility] Magnesium [Mass/Vol] 1.90 mg/dL Normal 1.60-3.10 [facility] Comment on above: Performed By: #### 1 9123-9 ####MELISA Galvan ([id number])[facility] ()[address] [facility] [facility] [place] [address] No Panel Informationon 06-29 Interpretation and review of laboratory results Normal [facility] Phosphateon 06-30-2023 Phosphate [Mass/Vol] 4.4 mg/dL Normal 2.5-4.5 [facility] Comment on above: Performed By: #### 2 777-1 ####MELISA Galvan ([id number])[facility] ()[address] [facility] [facility] [place] [facility] [place] [address] Phosphoruson 06-30-2023 Phosphate [Mass/Vol] 4.4 mg/dL 2.5 - 4.5 mg/dL [facility] Urinalysis complete W Reflex Culture panel (U)on 06-30-2023 Appearance (U) Clear Clear [facility] Bilirubin (U) [Mass/Vol] Negative NEGATIVE [facility] Color (U) Light-Yellow Light-Yellow, Yellow, Dark-Yellow [facility] Glucose Auto test strip (U) [Mass/Vol] Normal Normal mg/dL [facility] Interpretation and review of laboratory results Normal [facility] Ketones (U) [Mass/Vol] Negative NEGATIVE mg/dL [facility] Leukocyte esterase Auto test strip Ql (U) Negative NEGATIVE [facility] Nitrite Auto test strip Ql (U) Negative NEGATIVE [facility] pH (U) 6.0 [pH] 5.0, 5.5, 6.0, 6.5, 7.0, 7.5, 8.0 [facility] Protein (U) [Mass/Vol] Negative NEGATIVE, 10 (TRACE), 20 (TRACE) mg/dL [facility] RBC (U) [#/Vol] Negative NEGATIVE [facility] Specific gravity (U) [Rel density] 1.023 1.005 - 1.035 [facility] Urobilinogen (U) [Mass/Vol] Normal Normal mg/dL [facility] Appearance (U) Clear Normal Clear [facility] Comment on above: Performed By: #### 5 8077-9 ####MELISA Galvan ([id number])[facility] ()[address] [place] [address] Bilirubin (U) [Mass/Vol] Negative Normal NEGATIVE [facility] Comment on above: Performed By: #### 5 8077-9 ####MELISA Galvan ([id number])[facility] ()[address] [place] [address] Color (U) Light-Yellow Normal Light-Yellow, Yellow, Dark-Yellow [facility] Comment on above: Performed By: #### 5 8077-9 ####MELISA Galvan ([id number])[facility] ()[address] [place] [address] Glucose Auto test strip (U) [Mass/Vol] Normal Normal Normal [facility] Comment on above: Performed By: #### 5 8077-9 ####MELISA Galvan ([id number])[facility] ()[address] [place] [address] Ketones (U) [Mass/Vol] Negative Normal NEGATIVE [facility] Comment on above: Performed By: #### 5 8077-9 ####MELISA Galvan ([id number])[facility] ()[address] [place] [address] Leukocyte esterase Auto test strip Ql (U) Negative Normal NEGATIVE [facility] Comment on above: Performed By: #### 5 8077-9 ####MELISA Galvan ([id number])[facility] ()[address] [place] [address] Nitrite Auto test strip Ql (U) Negative Normal NEGATIVE [facility] Comment on above: Performed By: #### 5 8077-9 ####MELISA Galvan ([id number])[facility] ()[address] [place] [address] pH (U) 6.0 [pH] Normal 5.0, 5.5, 6.0, 6.5, 7.0, 7.5, 8.0 [facility] Comment on above: Performed By: #### 5 8077-9 ####MELISA Galvan ([id number])[facility] ()[address] [place] [address] Protein (U) [Mass/Vol] Negative Normal NEGATIVE, 10 (TRACE), 20 (TRACE) [facility] Comment on above: Performed By: #### 5 8077-9 ####MELISA Galvan ([id number])[facility] ()[address] [place] [address] RBC (U) [#/Vol] Negative Normal NEGATIVE [facility] Comment on above: Performed By: #### 5 8077-9 ####MELISA Galvan ([id number])[facility] ()[address] [place] [address] Specific gravity (U) [Rel density] 1.023 Normal 1.005-1.035 [facility] Comment on above: Performed By: #### 5 8077-9 ####MELISA Galvan ([id number])[facility] ()[address] [place] [address] Urobilinogen (U) [Mass/Vol] Normal Normal Normal [facility] Comment on above: Performed By: #### 5 8077-9 ####MELISA Galvan ([id number])[facility] ()[address] [place] [address] VASC US MESENTERIC ARTERY DU PLEX COMPLETEon 06-30-2023 VASC US MESENTERIC ARTERY DUPLEX COMPLETE [facility] [address] [place] [address] Vascular Lab Report VASC US MESENTERIC ARTERY DUPLEX COMPLETE Patient Name: ABBEY FloresRenetta JOSE Reading Physician: [id number] Magaña MD Study Date: 06/30/2023 Ordering Provider: [id number] JAMIL GAVIN MRN/PID: [id number] Fellow: Technologist: Leia Degroot Neav Date of /Age: 2 1990 / 33 years Technologist 2: Gender: F Admission Status: Inpatient Location Performed: [facility] 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 Report Amended Report Amended By: [id number] Magaña MD Date and Time: 06/30/2023 at [...] PSV 89 cm/s KEELY PSV 105 cm/s [id number] Magaña [place] [id number] Magaña MD Electronically Amended 06/30/2023, 12:15 PM Final (Amended) Normal [facility] Vascular US mesenteric arter y duplex completeon 06-30-2023 Radiology Study observation (narrative) [facility] Work Phone: Basic metabolic 2000 panelon 06-29-2023 Anion gap [Moles/Vol] 12 mmol/L NINF - 19 mmol/L [facility] Calcium [Mass/Vol] 8.6 mg/dL 8.5 - 10.4 mg/dL [facility] Chloride [Moles/Vol] 105 mmol/L 97 - 107 mmol/L [facility] CO2 [Moles/Vol] 21 mmol/L Low 24 - 31 mmol/L [facility] Creatinine [Mass/Vol] 0.60 mg/dL 0.40 - 1.60 mg/dL [facility] eGFR - PINF [facility] Comment on above: Calculations of jessica mated GFR are performed using the 2020 CKD-EPI Study Refit equation without the race variable for the IDMS-Traceable creatinine methods. https://jasn.asnjournals.org/content//ASN.88717077 88 Glucose [Mass/Vol] 106 mg/dL High 65 - 99 mg/dL [facility] Interpretation and review of laboratory results Abnormal [facility] Potassium [Moles/Vol] 3.9 mmol/L 3.4 - 5.1 mmol/L [facility] Sodium [Moles/Vol] 138 mmol/L 133 - 145 mmol/L [facility] Urea nitrogen [Mass/Vol] 16 mg/dL 8 - 25 mg/dL [facility] Anion gap [Moles/Vol] 12 mmol/L Normal <=19 [facility] Comment on above: Performed By: #### V ERAB #### MELISA Galvan ([id number]) [facility] ([facility]) [address] [place] [address] [place] Calcium [Mass/Vol] 8.6 mg/dL Normal 8.5-10.4 [facility] Comment on above: Performed By: #### V ERAB #### MELISA Galvan ([id number]) [facility] ([facility]) [address] [place] [address] [place] Chloride [Moles/Vol] 105 mmol/L Normal 97-107 [facility] Comment on above: Performed By: #### V ERAB #### MELISA Galvan ([id number]) [facility] ([facility]) [address] [place] [address] [place] CO2 [Moles/Vol] 21 mmol/L Low 24-31 [facility] Comment on above: Performed By: #### V ERAB #### MELISA Galvan ([id number]) [facility] ([facility]) [address] [place] [address] [place] Creatinine [Mass/Vol] 0.60 mg/dL Normal 0.40-1.60 [facility] Comment on above: Performed By: #### V ERAB #### MELISA Galvan ([id number]) [facility] ([facility]) [address] [place] [address] [place] GFR/1.73 sq M.predicted MDRD (S/P/Bld) [Vol rate/Area] mL/min/{1.73_m2} Normal >60 [facility] Comment on above: Result Comment: Calc ulations of estimated GFR are performed using the 2020 CKD-EPI Study Refit equation without the race variable for the IDMS-Traceable creatinine methods. https://jasn.asnjournals.org/content//ASN.08958402 88 Performed By: #### V ERAB #### MELISA Galvan ([id number]) [facility] ([facility]) [address] [place] [address] [place] Glucose [Mass/Vol] 106 mg/dL High 65-99 [facility] Comment on above: Performed By: #### V ERAB #### MELISA Galvan ([id number]) [facility] ([facility]) [address] [place] [address] [place] Potassium [Moles/Vol] 3.9 mmol/L Normal 3.4-5.1 [facility] Comment on above: Performed By: #### V ERAB #### MELISA Galvan ([id number]) [facility] ([facility]) [address] [place] [address] [place] Sodium [Moles/Vol] 138 mmol/L Normal 133-145 [facility] Comment on above: Performed By: #### V ERAB #### MELISA Galvan ([id number]) [facility] ([facility]) [address] [place] [address] [place] Urea nitrogen [Mass/Vol] 16 mg/dL Normal 8-25 [facility] Comment on above: Performed By: #### V ERAB #### MELISA Galvan ([id number]) [facility] ([facility]) [address] [place] [address] [place] CBC W Auto Differential pane l (Bld)on 06-29-2023 Basophils (Bld) [#/Vol] 0.03 10*3/uL [facility] Basophils/100 WBC (Bld) 0.6 % 0.0 - 2.0 % [facility] Eosinophils (Bld) [#/Vol] 0.01 10*3/uL [facility] Eosinophils/100 WBC (Bld) 0.2 % 0.0 - 6.0 % [facility] Erythrocyte distribution width (RBC) [Ratio] 13.8 % 11.5 - 14.5 % [facility] Hematocrit (Bld) [Volume fraction] 32.2 % Low 36.0 - 46.0 % [facility] Hemoglobin (Bld) [Mass/Vol] 10.3 g/dL Low 12.0 - 16.0 g/dL [facility] Immature granulocytes (Bld) [#/Vol] 0.01 10*3/uL [facility] Immature granulocytes/100 WBC (Bld) 0.2 % 0.0 - 0.9 % [facility] Comment on above: Immature Granulocyte Count (IG) includes promyelocytes, myelocytes and metamyelocytes but does not include bands. Percent differential counts (%) should be interpreted in the context of the absolute cell counts (cells/UL). Interpretation and review of laboratory results Abnormal [facility] Lymphocytes (Bld) [#/Vol] 1.15 10*3/uL Low [facility] Lymphocytes/100 WBC (Bld) 23.1 % 13.0 - 44.0 % [facility] MCH (RBC) [Entitic mass] 31.2 pg 26.0 - 34.0 pg [facility] MCHC (RBC) [Mass/Vol] 32.0 g/dL 32.0 - 36.0 g/dL [facility] MCV (RBC) [Entitic vol] 98 fL 80 - 100 fL [facility] Monocytes (Bld) [#/Vol] 0.20 10*3/uL [facility] Monocytes/100 WBC (Bld) 4.0 % 2.0 - 10.0 % [facility] Neutrophils (Bld) [#/Vol] 3.57 10*3/uL [facility] Comment on above: Percent differential counts (%) should be interpreted in the context of the absolute cell counts (cells/uL). Neutrophils/100 WBC (Bld) 71.9 % 40.0 - 80.0 % [facility] Nucleated RBC/100 WBC (Bld) [Ratio] 0.0 % [facility] Platelets (Bld) [#/Vol] 231 10*3/uL [facility] RBC (Bld) [#/Vol] 3.30 10*6/uL Low [facility] WBC (Bld) [#/Vol] 5.0 10*3/uL [facility] Basophils (Bld) [#/Vol] 0.03 x10*3/uL Normal 0.00-0.10 [facility] Comment on above: Performed By: #### V ERAB #### MELISA Galvan ([id number]) [facility] ([facility]) [address] [place] [address] [place] Basophils/100 WBC (Bld) 0.6 % Normal 0.0-2.0 [facility] Comment on above: Performed By: #### V ERAB #### MELISA Galvan ([id number]) [facility] ([facility]) [address] [place] [address] [place] Eosinophils (Bld) [#/Vol] 0.01 x10*3/uL Normal 0.00-0.70 [facility] Comment on above: Performed By: #### V ERAB #### MELISA Galvan ([id number]) [facility] ([facility]) [address] [place] [address] [place] Eosinophils/100 WBC (Bld) 0.2 % Normal 0.0-6.0 [facility] Comment on above: Performed By: #### V ERAB #### MELISA Galvan () [facility] [address] [place] [address] [place] Erythrocyte distribution width (RBC) [Ratio] 13.8 % Normal 11.5-14.5 [facility] Comment on above: Performed By: #### V ERAB #### MELISA Galvan () [facility] ([facility]) [address] [place] [address] [place] Hematocrit (Bld) [Volume fraction] 32.2 % Low 36.0-46.0 [facility] Comment on above: Performed By: #### V ERAB #### MELISA Galvan () [facility] ([facility]) [address] [place] [address] [place] Hemoglobin (Bld) [Mass/Vol] 10.3 g/dL Low 12.0-16.0 [facility] Comment on above: Performed By: #### V ERAB #### MELISA MC Mandy () [facility] ([facility]) [address] [place] [address] [place] Immature granulocytes (Bld) [#/Vol] 0.01 x10*3/uL Normal 0.00-0.70 [facility] Comment on above: Performed By: #### V ERAB #### MELISA ALEXANDRO J () [facility] ([facility]) [address] [place] [address] [place] Immature granulocytes/100 WBC (Bld) 0.2 % Normal 0.0-0.9 [facility] Comment on above: Result Comment: Janny ture Granulocyte Count (IG) includes promyelocytes, myelocytes and metamyelocytes but does not include bands. Percent differential counts (%) should be interpreted in the context of the absolute cell counts (cells/UL). Performed By: #### V ERAB #### MELISA ALEXANDRO J () [facility] ([facility]) [address] [place] [address] [place] Lymphocytes (Bld) [#/Vol] 1.15 x10*3/uL Low 1.20-4.80 [facility] Comment on above: Performed By: #### V ERAB #### MELISA ALEXANDRO J ([id number]) [facility] ([facility]) [address] [place] [address] [place] Lymphocytes/100 WBC (Bld) 23.1 % Normal 13.0-44.0 [facility] Comment on above: Performed By: #### V ERAB #### MELISA ALEXANDRO J () [facility] ([facility]) [address] [place] [address] US MCH (RBC) [Entitic mass] 31.2 pg Normal 26.0-34.0 [facility] Comment on above: Performed By: #### V ERAB #### MELISA Galvan ([id number]) [facility] ([facility]) [address] [place] [address] US MCHC (RBC) [Mass/Vol] 32.0 g/dL Normal 32.0-36.0 [facility] Comment on above: Performed By: #### V ERAB #### MELISA Galvan () [facility] ([facility]) [address] [place] [address] US MCV (RBC) [Entitic vol] 98 fL Normal 80-100 [facility] Comment on above: Performed By: #### V ERAB #### MELISA Galvan () [facility] ([facility]) [address] [place] [address] [place] Monocytes (Bld) [#/Vol] 0.20 x10*3/uL Normal 0.10-1.00 [facility] Comment on above: Performed By: #### V ERAB #### MELISA Galvan ([id number]) [facility] ([facility]) [address] [place] [address] [place] Monocytes/100 WBC (Bld) 4.0 % Normal 2.0-10.0 [facility] Comment on above: Performed By: #### V ERAB #### MELSIA Galvan ([id number]) [facility] ([facility]) [address] [place] [address] US Neutrophils (Bld) [#/Vol] 3.57 x10*3/uL Normal 1.20-7.70 [facility] Comment on above: Result Comment: Perc ent differential counts (%) should be interpreted in the context of the absolute cell counts (cells/uL). Performed By: #### V ERAB #### MELISA Galvan ([id number]) [facility] ([facility]) [address] [place] [address] [place] Neutrophils/100 WBC (Bld) 71.9 % Normal 40.0-80.0 [facility] Comment on above: Performed By: #### V ERAB #### MELISA Galvan ([id number]) [facility] ([facility]) [address] [place] [address] [place] Nucleated RBC/100 WBC (Bld) [Ratio] 0.0 /100 WBCs Normal 0.0-0.0 [facility] Comment on above: Performed By: #### V ERAB #### MELISA Galvan ([id number]) [facility] ([facility]) [address] [place] [address] [place] Platelets (Bld) [#/Vol] 231 x10*3/uL Normal 150-450 [facility] Comment on above: Performed By: #### V ERAB #### MELISA Galvan ([id number]) [facility] ([facility]) [address] [place] [address] [place] RBC (Bld) [#/Vol] 3.30 x10*6/uL Low 4.00-5.20 [facility] Comment on above: Performed By: #### V ERAB #### MELISA Galvan ([id number]) [facility] ([facility]) [address] [place] [address] [place] WBC (Bld) [#/Vol] 5.0 x10*3/uL Normal 4.4-11.3 [facility] Comment on above: Performed By: #### V ERAB #### MELISA Galvan ([id number]) [facility] ([facility]) [address] [place] [address] [place] CBC panel Auto (Bld)on 06-28 Erythrocyte distribution width (RBC) [Ratio] 13.7 % 11.5 - 14.5 % [facility] Hematocrit (Bld) [Volume fraction] 32.7 % Low 36.0 - 46.0 % [facility] Hemoglobin (Bld) [Mass/Vol] 11.0 g/dL Low 12.0 - 16.0 g/dL [facility] Interpretation and review of laboratory results Abnormal [facility] MCH (RBC) [Entitic mass] 30.7 pg 26.0 - 34.0 pg [facility] MCHC (RBC) [Mass/Vol] 33.6 g/dL 32.0 - 36.0 g/dL [facility] MCV (RBC) [Entitic vol] 91 fL 80 - 100 fL [facility] Nucleated RBC/100 WBC (Bld) [Ratio] 0.0 % [facility] Platelets (Bld) [#/Vol] 246 10*3/uL [facility] RBC (Bld) [#/Vol] 3.58 10*6/uL Low [facility] WBC (Bld) [#/Vol] 5.2 10*3/uL [facility] Erythrocyte distribution width (RBC) [Ratio] 13.7 % Normal 11.5-14.5 [facility] Comment on above: Performed By: #### V ERAB #### MELISA Galvan ([id number]) [facility] ([facility]) [address] [place] [address] [place] Hematocrit (Bld) [Volume fraction] 32.7 % Low 36.0-46.0 [facility] Comment on above: Performed By: #### V ERAB #### MELISA Galvan ([id number]) [facility] ([facility]) [address] [place] [address] [place] Hemoglobin (Bld) [Mass/Vol] 11.0 g/dL Low 12.0-16.0 [facility] Comment on above: Performed By: #### V ERAB #### MELISA Galvan ([id number]) [facility] ([facility]) [address] [place] [address] [place] MCH (RBC) [Entitic mass] 30.7 pg Normal 26.0-34.0 [facility] Comment on above: Performed By: #### V ERAB #### MELISA Galvan ([id number]) [facility] ([facility]) [address] [place] [address] [place] MCHC (RBC) [Mass/Vol] 33.6 g/dL Normal 32.0-36.0 [facility] Comment on above: Performed By: #### V ERAB #### MELISA Galvan ([id number]) [facility] ([facility]) [address] [place] [address] [place] MCV (RBC) [Entitic vol] 91 fL Normal 80-100 [facility] Comment on above: Performed By: #### V ERAB #### MELISA POOLESarwat Galvan ([id number]) [facility] ([facility]) [address] [place] [address] [place] Nucleated RBC/100 WBC (Bld) [Ratio] 0.0 /100 WBCs Normal 0.0-0.0 [facility] Comment on above: Performed By: #### V ERAB #### MELISA Galvan ([id number]) [facility] ([facility]) [address] [place] [address] [place] Platelets (Bld) [#/Vol] 246 x10*3/uL Normal 150-450 [facility] Comment on above: Performed By: #### V ERAB #### MELISA ALEXANDRO J ([id number]) [facility] ([facility]) [address] [place] [address] [place] RBC (Bld) [#/Vol] 3.58 x10*6/uL Low 4.00-5.20 [facility] Comment on above: Performed By: #### V ERAB #### MELISA ALEXANDRO J ([id number]) [facility] ([facility]) [address] [place] [address] [place] WBC (Bld) [#/Vol] 5.2 x10*3/uL Normal 4.4-11.3 [facility] Comment on above: Performed By: #### V ERAB #### MELISA POOLESarwat Galvan ([id number]) [facility] ([facility]) [address] [place] [address] ABDOMEN PELVIS WO IV CONT Mary Anne 06-29-2023 CT ABDOMEN PELVIS WO IV CONTRAST Interpreted By: Fly West, STUDY: CT ABDOMEN PELVIS WO IV CONTRAST; 06/29/2023 11:09 pm INDICATION: Signs/Symptoms:Abdo kerry pain. COMPARISON: 03/16/2023 ACCESSION NUMBER(S): [id number] ORDERING CLINICIAN: DAVID VALADEZ TECHNIQUE: Axial CT [...] Fly West 06/29/2023 11:53 PM Dictation workstation: [id number] [facility] CT Abdomen WO contraston 1. No acute abdominal or pelvic process. 2. Numerous hepatic hypodense lesions, incompletely characterize, though likely reflecting cysts. Appearance is similar to 03/16/2023. 3. Postsurgical changes as above. Signed by: Fly West 06/29/2023 11:53 PM Dictation workstation: [id number] [facility] Interpreted By: Fly West, STUDY: CT ABDOMEN PELVIS WO IV CONTRAST; 06/29/2023 11:09 pm INDICATION: Signs/Symptoms:Abdo kerry pain. COMPARISON: 03/16/2023 ACCESSION NUMBER(S): [id number] ORDERING CLINICIAN: DAVID VALADEZ TECHNIQUE: Axial CT [...] Signs/Symptoms:Abdo kerry pain. COMPARISON: 03/16/2023 ACCESSION NUMBER(S): [id number] ORDERING CLINICIAN: DAVID VALADEZ TECHNIQUE: Axial CT [...] Fly West 06/29/2023 11:53 PM Dictation workstation: [id number] [facility] Work Phone: Radiology Study observation (narrative) [facility] Work Phone: CT Abdomen WO contrastOrdere d By: Fly West on 06-29-2023 [facility] Work Phone: Comprehensive metabolic 2000 panelon 06-29-2023 Albumin [Mass/Vol] 3.8 g/dL Normal 3.5-5.0 [facility] Comment on above: Performed By: #### V ERAB #### MELISA Galvan ([id number]) [facility] ([facility]) [address] [place] [address] [place] ALP (Bld) [Catalytic activity/Vol] 51 U/L Normal 35-125 [facility] Comment on above: Performed By: #### V ERAB #### MELISA Galvan ([id number]) [facility] ([facility]) [address] [place] [address] US ALT [Catalytic activity/Vol] 35 U/L Normal 5-40 [facility] Comment on above: Performed By: #### V ERAB #### MELISA Galvan ([id number]) [facility] ([facility]) [address] [place] [address] [place] Anion gap [Moles/Vol] 13 mmol/L Normal <=19 [facility] Comment on above: Performed By: #### V ERAB #### MELISA Galvan () [facility] ([facility]) [address] [place] [address] [place] AST [Catalytic activity/Vol] 52 U/L High 5-40 [facility] Comment on above: Performed By: #### V ERAB #### MELISA Galvan () [facility] ([facility]) [address] [place] [address] [place] Bilirubin [Mass/Vol] mg/dL Normal 0.1-1.2 [facility] Comment on above: Performed By: #### V ERAB #### MELISA Galvan () [facility] ([facility]) [address] [place] [address] [place] Calcium [Mass/Vol] 9.1 mg/dL Normal 8.5-10.4 [facility] Comment on above: Performed By: #### V ERAB #### MELISA Galvan () [facility] ([facility]) [address] [place] [address] [place] Chloride [Moles/Vol] 90 mmol/L Low 97-107 [facility] Comment on above: Performed By: #### V ERAB #### MELISA Galvan () [facility] ([facility]) [address] [place] [address] [place] CO2 [Moles/Vol] 19 mmol/L Low 24-31 [facility] Comment on above: Performed By: #### V ERAB #### MELISA Galvan () [facility] ([facility]) [address] [place] [address] [place] Creatinine [Mass/Vol] 0.70 mg/dL Normal 0.40-1.60 [facility] Comment on above: Performed By: #### V ERAB #### MELISA Galvan () [facility] ([facility]) [address] [place] [address] [place] GFR/1.73 sq M.predicted MDRD (S/P/Bld) [Vol rate/Area] mL/min/{1.73_m2} Normal >60 [facility] Comment on above: Result Comment: Calc ulations of estimated GFR are performed using the 2020 CKD-EPI Study Refit equation without the race variable for the IDMS-Traceable creatinine methods. https://jasn.asnjournals.org/content//ASN.19249415 88 Performed By: #### V ERAB #### MELISA Galvan ([id number]) [facility] ([facility]) [address] [place] [address] [place] Glucose [Mass/Vol] 920 mg/dL Critically high 65-99 [facility] Comment on above: Result Comment: Resu lt rechecked Possible IV contamination. Results do not correlate with previous and post results. Patient was redraw . Performed By: #### V ERAB #### MELISA Galvan ([id number]) [facility] ([facility]) [address] [place] [address] [place] Potassium [Moles/Vol] 6.8 mmol/L Critically high 3.4-5.1 [facility] Comment on above: Result Comment: Resu lt rechecked Possible IV contamination. Results do not correlate with previus and post results. Patient was redrawn. Performed By: #### V ERAB #### MELISA Galvan () [facility] ([facility]) [address] [place] [address] [place] Protein [Mass/Vol] 6.3 g/dL Normal 5.9-7.9 [facility] Comment on above: Performed By: #### V ERAB #### MELISA Galvan () [facility] ([facility]) [address] [place] [address] [place] Sodium [Moles/Vol] 122 mmol/L Low 133-145 [facility] Comment on above: Result Comment: Resu lt rechecked Performed By: #### V ERAB #### MELISA Galvan ([id number]) [facility] ([facility]) [address] [place] [address] [place] Urea nitrogen [Mass/Vol] 15 mg/dL Normal 8-25 [facility] Comment on above: Performed By: #### V ERAB #### MELISA Galvan ([id number]) [facility] [address] [place] [address] [place] Glucose Test strip manual (B ld) [Mass/Vol]on 06-29-2023 Glucose [Mass/Vol] 117 mg/dL High 74 - 99 mg/dL [facility] Interpretation and review of laboratory results [facility] Glucose [Mass/Vol] 117 mg/dL High 74-99 [facility] Comment on above: Performed By: #### V ERAB #### MELISA Galvan ([id number]) [facility] ([facility] [address] [place] [address] [facility] 2023 Home Health Records [id number] 8#1.00TIFF [facility] Auth for Release of Medical Recordson 06-23-2023 Auth for Release of Medical Records [id number] B#1.00TIFF [facility] ED Note-Physicianon 06-23-19 ED Note-Physician [id number] D5#1.00TIFF Normal [facility] ED Note-Physicianon 06-22-19 ED Note-Physician [id number] 906#1.00TIFF [facility] ED Note-Physician [id number] 15#1.00TIFF [facility] Lab Reportson 06-22-2023 Lab Reports [id number] 447#1.00TIFF Normal [facility] Provider Letteron 06-22-2023 Provider Letter Normal [facility] RAD - CT Reporton 06-22-2023 RAD - CT Report [id number] 594#1.00TIFF Normal [facility] Home Health Recordson 2023 Home Health Records [id number] 00#1.00TIFF Normal [facility] ALLIED HEALTHon 06-18-2023 ALLIED HEALTH Normal [facility] CBC W Auto Differential pane l (Bld)on 06-18-2023 Basophils (Bld) [#/Vol] 0.04 10*3/uL Normal <0.11 [facility] Comment on above: Order Comment: Speci men Type: BLOOD SPECIMENOrdering Facility: [facility] Address: [address] [place] [address] Performed By: #### 5 7021-8 ####[facility] LABORATORYCLIA [id number] [place] [address] [place] Basophils/100 WBC (Bld) 0.8 % Normal [facility] Comment on above: Order Comment: Speci men Type: BLOOD SPECIMENOrdering Facility: [facility] Address: [address] [place] [address] Performed By: #### 5 7021-8 ####[facility] LABORATORYCLIA [id number] [place] [address] [place] Differential cell count method Nom (Bld) Auto Normal [facility] Comment on above: Order Comment: Speci men Type: BLOOD SPECIMENOrdering Facility: [facility] Address: [address] [place] [address] Performed By: #### 5 7021-8 ####[facility] LABORATORYCLIA [id number] [place] [id number] [place] Eosinophils (Bld) [#/Vol] 0.13 10*3/uL Normal <0.46 [facility] Comment on above: Order Comment: Speci men Type: BLOOD SPECIMENOrdering Facility: [facility] Address: [address] [place] [address] Performed By: #### 5 7021-8 ####[facility] LABORATORYCLIA [id number] [place] [address] [place] Eosinophils/100 WBC (Bld) 2.8 % Normal [facility] Comment on above: Order Comment: Speci men Type: BLOOD SPECIMENOrdering Facility: [facility] Address: [address] [place] [address] Performed By: #### 5 7021-8 ####[facility] LABORATORYCLIA [id number] [place] [address] [place] Erythrocyte distribution width (RBC) [Ratio] 13.3 % Normal 11.5-15.0 [facility] Comment on above: Order Comment: Speci men Type: BLOOD SPECIMENOrdering Facility: [facility] Address: [address] [place] [address] Performed By: #### 5 7021-8 ####[facility] LABORATORYCLIA [id number] [place] [address] [place] Hematocrit (Bld) [Volume fraction] 34.6 % Low 36.0-46.0 [facility] Comment on above: Order Comment: Speci men Type: BLOOD SPECIMENOrdering Facility: [facility] Address: [address] [place] [address] Performed By: #### 5 7021-8 ####[facility] LABORATORYCLIA [id number] [place] [address] [place] Hemoglobin (Bld) [Mass/Vol] 12.0 g/dL Normal 11.5-15.5 [facility] Comment on above: Order Comment: Speci men Type: BLOOD SPECIMENOrdering Facility: [facility] Address: [address] [place] [address] Performed By: #### 5 7021-8 ####[facility] LABORATORYCLIA [id number] [address] [place] Immature granulocytes (Bld) [#/Vol] 10*3/uL Normal <0.10 [facility] Comment on above: Order Comment: Speci men Type: BLOOD SPECIMENOrdering Facility: [facility] Address: [address] [place] [address] Performed By: #### 5 7021-8 ####[facility] LABORATORYCLIA [id number] [place] [id number] [place] Immature granulocytes/100 WBC (Bld) 0.2 % Normal [facility] Comment on above: Order Comment: Speci men Type: BLOOD SPECIMENOrdering Facility: [facility] Address: [address] [place] [address] Performed By: #### 5 7021-8 ####[facility] LABORATORYCLIA [id number] [place] [address] [place] Lymphocytes (Bld) [#/Vol] 1.90 10*3/uL Normal 1.00-4.00 [facility] Comment on above: Order Comment: Speci men Type: BLOOD SPECIMENOrdering Facility: [facility] Address: [address] [place] [address] Performed By: #### 5 7021-8 ####[facility] LABORATORYCLIA [id number] [place] [address] [place] Lymphocytes/100 WBC (Bld) 40.3 % Normal [facility] Comment on above: Order Comment: Speci men Type: BLOOD SPECIMENOrdering Facility: [facility] Address: [address] [place] [address] Performed By: #### 5 7021-8 ####[facility] LABORATORYCLIA [id number] [place] [id number] [place] MCH (RBC) [Entitic mass] 30.9 pg Normal 26.0-34.0 [facility] Comment on above: Order Comment: Speci men Type: BLOOD SPECIMENOrdering Facility: [facility] Address: [address] [place] [address] Performed By: #### 5 7021-8 ####[facility] LABORATORYCLIA [id number] [place] [address] [place] MCHC (RBC) [Mass/Vol] 34.7 g/dL Normal 30.5-36.0 [facility] Comment on above: Order Comment: Speci men Type: BLOOD SPECIMENOrdering Facility: [facility] Address: [address] [place] [address] Performed By: #### 5 7021-8 ####[facility] LABORATORYCLIA [id number] [place] [id number] [place] MCV (RBC) [Entitic vol] 89.2 fL Normal 80.0-100.0 [facility] Comment on above: Order Comment: Speci men Type: BLOOD SPECIMENOrdering Facility: [facility] Address: [address] [place] [address] Performed By: #### 5 7021-8 ####[facility] LABORATORYCLIA [id number] [place] [address] [place] Monocytes (Bld) [#/Vol] 0.24 10*3/uL Normal <0.87 [facility] Comment on above: Order Comment: Speci men Type: BLOOD SPECIMENOrdering Facility: [facility] Address: [address] [place] [address] Performed By: #### 5 7021-8 ####[facility] LABORATORYCLIA [id number] [place] [address] [place] Monocytes/100 WBC (Bld) 5.1 % Normal [facility] Comment on above: Order Comment: Speci men Type: BLOOD SPECIMENOrdering Facility: [facility] Address: [address] [place] [address] Performed By: #### 5 7021-8 ####[facility] LABORATORYCLIA [id number] [place] [id number] [place] Neutrophils (Bld) [#/Vol] 2.39 10*3/uL Normal 1.45-7.50 [facility] Comment on above: Order Comment: Speci men Type: BLOOD SPECIMENOrdering Facility: [facility] Address: [address] [place] [address] Performed By: #### 5 7021-8 ####[facility] LABORATORYCLIA [id number] [place] [address] [place] Neutrophils/100 WBC (Bld) 50.8 % Normal [facility] Comment on above: Order Comment: Speci men Type: BLOOD SPECIMENOrdering Facility: [facility] Address: [address] [place] [address] Performed By: #### 5 7021-8 ####[facility] LABORATORYCLIA [id number] [place] [id number] [place] Nucleated RBC (Bld) [#/Vol] 10*3/uL Normal <0.01 [facility] Comment on above: Order Comment: Speci men Type: BLOOD SPECIMENOrdering Facility: [facility] Address: [address] [place] [address] Performed By: #### 5 7021-8 ####[facility] LABORATORYCLIA [id number] [place] [id number] [place] Nucleated RBC/100 WBC (Bld) [Ratio] 0.0 /100 WBC Normal [facility] Comment on above: Order Comment: Speci men Type: BLOOD SPECIMENOrdering Facility: [facility] Address: [address] [place] [address] Performed By: #### 5 7021-8 ####[facility] LABORATORYCLIA [id number] [place] [address] [place] Platelet mean volume (Bld) [Entitic vol] 11.4 fL Normal 9.0-12.7 [facility] Comment on above: Order Comment: Speci men Type: BLOOD SPECIMENOrdering Facility: [facility] Address: [address] [place] [address] Performed By: #### 5 7021-8 ####[facility] LABORATORYCLIA [id number] [place] [id number] [place] Platelets (Bld) [#/Vol] 233 10*3/uL Normal 150-400 [facility] Comment on above: Order Comment: Speci men Type: BLOOD SPECIMENOrdering Facility: [facility] Address: [address] [place] [address] Performed By: #### 5 7021-8 ####[facility] LABORATORYCLIA [id number] [place] [id number] [place] RBC (Bld) [#/Vol] 3.88 10*6/uL Low 3.90-5.20 [facility] Comment on above: Order Comment: Speci men Type: BLOOD SPECIMENOrdering Facility: [facility] Address: [address] [place] [address] Performed By: #### 5 7021-8 ####[facility] LABORATORYCLIA [id number] [place] [address] [place] WBC (Bld) [#/Vol] 4.71 10*3/uL Normal 3.70-11.00 [facility] Comment on above: Order Comment: Speci men Type: BLOOD SPECIMENOrdering Facility: [facility] Address: [address] [place] [address] Performed By: #### 5 7021-8 ####[facility] LABORATORYCLIA [id number] [place] [address] [place] CNOVon 06-18-2023 CNOV Normal [facility] CONSULTon 06-18-2023 CONSULT Normal [facility] CT ABD/PEL W IVCONon 024 CT ABD/PEL W IVCON Normal [facility] Comprehensive metabolic 2000 panelon 06-18-2023 Albumin [Mass/Vol] 4.5 g/dL Normal 3.9-4.9 [facility] Comment on above: Order Comment: Speci men Type: BLOOD SPECIMENOrdering Facility: [facility] Address: [address] [place] [address] Performed By: #### 3 040-3, 22754-9, ####[facility] LABORATORYCLIA [id number] [place] [id number] [place] ALP [Catalytic activity/Vol] 58 U/L Normal 34-123 [facility] Comment on above: Order Comment: Speci men Type: BLOOD SPECIMENOrdering Facility: [facility] Address: [address] [place] [address] Performed By: #### 3 040-3, 66919-3, ####[facility] LABORATORYCLIA [id number] [place] [address] [place] ALT [Catalytic activity/Vol] 13 U/L Normal 7-38 [facility] Comment on above: Order Comment: Speci men Type: BLOOD SPECIMENOrdering Facility: [facility] Address: [address] [place] [address] Performed By: #### 3 040-3, , ####[facility] LABORATORYCLIA [id number] [place] [id number] [place] Anion gap [Moles/Vol] 13 mmol/L Normal 9-18 [facility] Comment on above: Order Comment: Speci men Type: BLOOD SPECIMENOrdering Facility: [facility] Address: [address] [place] [address] Performed By: #### 3 040-3, , ####[facility] LABORATORYCLIA [id number] [place] [address] [place] AST [Catalytic activity/Vol] 31 U/L Normal 13-35 [facility] Comment on above: Order Comment: Speci men Type: BLOOD SPECIMENOrdering Facility: [facility] Address: [address] [place] [address] Performed By: #### 3 040-3, , ####[facility] LABORATORYCLIA [id number] [place] [id number] [place] Bilirubin [Mass/Vol] 0.4 mg/dL Normal 0.2-1.3 [facility] Comment on above: Order Comment: Speci men Type: BLOOD SPECIMENOrdering Facility: [facility] Address: [address] [place] [address] Performed By: #### 3 040-3, , ####[facility] LABORATORYCLIA [id number] [place] [id number] [place] Calcium [Mass/Vol] 9.0 mg/dL Normal 8.5-10.2 [facility] Comment on above: Order Comment: Speci men Type: BLOOD SPECIMENOrdering Facility: [facility] Address: [address] [place] [address] Performed By: #### 3 040-3, 40938-0, ####[facility] LABORATORYCLIA [id number] [place] [id number] [place] Chloride [Moles/Vol] 103 mmol/L Normal 97-105 [facility] Comment on above: Order Comment: Speci men Type: BLOOD SPECIMENOrdering Facility: [facility] Address: [address] [place] [address] Performed By: #### 3 040-3, 84545-2, ####[facility] LABORATORYCLIA [id number] [place] [id number] [place] CO2 [Moles/Vol] 22 mmol/L Normal 22-30 [facility] Comment on above: Order Comment: Speci men Type: BLOOD SPECIMENOrdering Facility: [facility] Address: [address] [place] [address] Performed By: #### 3 040-3, 29363-9, ####[facility] LABORATORYCLIA [id number] [place] [id number] [place] Creatinine [Mass/Vol] 0.83 mg/dL Normal 0.58-0.96 [facility] Comment on above: Order Comment: Speci men Type: BLOOD SPECIMENOrdering Facility: [facility] Address: [address] [place] [address] Performed By: #### 3 040-3, 22872-4, ####[facility] LABORATORYCLIA [id number] [place] [id number] [facility] Creatinine and Glomerular filtration rate.predicted panel (S/P/Bld) 95 mL/min/1.73m??? Normal >=60 [facility] Comment on above: Order Comment: Speci men Type: BLOOD SPECIMENOrdering Facility: [facility] Address: [address] [place] [address] Result Comment: Jessica mated Glomerular Filtration Rate [...] By: #### 3 040-3, , ####[facility] LABORATORYCLIA [id number] [place] [id number] [place] Glucose [Mass/Vol] 77 mg/dL Normal 74-99 [facility] Comment on above: Order Comment: Geraldo marrero Type: BLOOD SPECIMENOrdering Facility: [facility] Address: [address] [place] [address] Result Comment: The [place] [employer] (ADA) provides guidance for cutoff [...] Standards of Medical Care in Diabetes 2016, [place] [employer]. Diabetes Care. 2016.39(Suppl 1). Performed By: #### 3 040-3, , ####[facility] LABORATORYCLIA [id number] [place] [id number] [place] Potassium [Moles/Vol] 3.4 mmol/L Low 3.7-5.1 [facility] Comment on above: Order Comment: Geraldo marrero Type: BLOOD SPECIMENOrdering Facility: [facility] Address: [address] [place] [id number] Performed By: #### 3 040-3, , ####[facility] LABORATORYCLIA [id number] [place] [id number] [place] Protein [Mass/Vol] 7.6 g/dL Normal 6.3-8.0 [facility] Comment on above: Order Comment: Geraldo marrero Type: BLOOD SPECIMENOrdering Facility: [facility] Address: [address] [place], [place] [address] Performed By: #### 3 040-3, 15523-3, ####[facility] LABORATORYCLIA [id number] [place] [id number] [place] Sodium [Moles/Vol] 138 mmol/L Normal 136-144 [facility] Comment on above: Order Comment: Speci men Type: BLOOD SPECIMENOrdering Facility: [facility] Address: [address] [place] [address] Performed By: #### 3 040-3, 27531-2, ####OS[facility] LABORATORYCLIA [id number] [place] [id number] [place] Urea nitrogen [Mass/Vol] 12 mg/dL Normal 7-21 [facility] Comment on above: Order Comment: Speci men Type: BLOOD SPECIMENOrdering Facility: [facility] Address: [address] [place] [address] Performed By: #### 3 040-3, 39234-0, ####[facility] LABORATORYCLIA [id number] [place] [id number] [place] ECG COMPLETEon 06-18-2023 ECG COMPLETE Normal [facility] ED NOTEon 06-18-2023 ED NOTE Normal [facility] ED NOTE HNO ID: [id number] Author: HIEU HERNANDEZ RN Service: ? Author Type: Registered Nurse Type: ED Notes Filed: 06/18/2023 19:05 Note Text: Patient verbalized understanding of discharge instructions and follow up care. [facility] ED NOTE HNO ID: [id number] Author: HIEU HERNANDEZ RN Service: ? Author Type: Registered Nurse Type: ED Notes Filed: 06/18/2023 18:38 Note Text: Long catheter with leg bag inserted and orange juice given via peg tube given per Earnest INMAN verbal order. [facility] ED PROV NOTEon 06-18-2023 ED PROV NOTE Normal [facility] HCG QUALITATIVEon 06-18-2023 HCG, QUALITATIVE Negative Normal Negative [facility] Comment on above: Order Comment: Speci men Type: BLOOD SPECIMENOrdering Facility: [facility] Address: [address] [place] [address] Performed By: #### H CG ####OS[facility] LABORATORYCLIA [id number] [place] [id number] [place] Lipase SerPl-cCncon 06-18-19 24 Lipase [Catalytic activity/Vol] 31 U/L Normal 16-61 [facility] Comment on above: Order Comment: Speci men Type: BLOOD SPECIMENOrdering Facility: [facility] Address: [address] [place] [address] Performed By: #### 3 040-3, 14818-4, 90298-6 ####OS[facility] LABORATORYCLIA [id number] [place] [id number] [place] Magnesium SerPl-mCncon 06-17 Magnesium [Mass/Vol] 2.0 mg/dL Normal 1.7-2.3 [facility] Comment on above: Order Comment: Speci men Type: BLOOD SPECIMENOrdering Facility: [facility] Address: [address] [place] [address] Performed By: #### 3 040-3, 09983-3, 77350-6 ####OS[facility] LABORATORYCLIA [id number] [place] [id number] [place] Urinalysis complete panel (U )on 06-18-2023 Bacteria LM.HPF (Urine sed) [#/Area] Rare Abnormal None Seen [facility] Comment on above: Order Comment: Speci men Type: URINE SPECIMENOrdering Facility: [facility] Address: [address] [place] [address] Performed By: #### 2 4356-8 ####OS[facility] LABORATORYCLIA [id number] [place] [id number] [place] Bilirubin Ql (U) Negative Normal Negative [facility] Comment on above: Order Comment: Speci men Type: URINE SPECIMENOrdering Facility: [facility] Address: [address] [place] [address] Performed By: #### 2 4356-8 ####OS[facility] LABORATORYCLIA [id number] [place] [address] [place] Clarity (Unsp spec) Clear Normal Clear [facility] Comment on above: Order Comment: Speci men Type: URINE SPECIMENOrdering Facility: [facility] Address: [address] [place] [address] Performed By: #### 2 4356-8 ####[facility] LABORATORYCLIA [id number] [place] [address] [place] Color (U) Light Yellow Normal Yellow [facility] Comment on above: Order Comment: Speci men Type: URINE SPECIMENOrdering Facility: [facility] Address: [address] [place] [address] Performed By: #### 2 4356-8 ####[facility] LABORATORYCLIA [id number] [place] [address] [place] Epithelial cells LM.HPF (Urine sed) [#/Area] Few Normal [facility] Comment on above: Order Comment: Speci men Type: URINE SPECIMENOrdering Facility: [facility] Address: [address] [place] [address] Performed By: #### 2 4356-8 ####[facility] LABORATORYCLIA [id number] [place] [address] [place] Glucose Test strip (U) [Mass/Vol] Negative Normal Trace, Negative [facility] Comment on above: Order Comment: Speci men Type: URINE SPECIMENOrdering Facility: [facility] Address: [address] [place] [address] Performed By: #### 2 4356-8 ####[facility] LABORATORYCLIA [id number] [place] [address] [place] Hemoglobin Ql (U) Negative Normal Negative, Trace Fa [facility] Comment on above: Order Comment: Speci men Type: URINE SPECIMENOrdering Facility: [facility] Address: [address] [place] [address] Performed By: #### 2 4356-8 ####[facility] LABORATORYCLIA [id number] [place] [address] [place] Ketones Ql (U) Negative Normal Negative, Trace [facility] Comment on above: Order Comment: Speci men Type: URINE SPECIMENOrdering Facility: [facility] Address: [address] [place] [address] Performed By: #### 2 4356-8 ####[facility] LABORATORYCLIA [id number] [place] [address] [place] Leukocyte esterase Test strip Ql (U) Negative Normal Negative, 25 Patito/uL [facility] Comment on above: Order Comment: Speci men Type: URINE SPECIMENOrdering Facility: [facility] Address: [address] [place] [address] Performed By: #### 2 4356-8 ####[facility] LABORATORYCLIA [id number] [place] [address] [place] Nitrite Ql (U) Negative Normal Negative [facility] Comment on above: Order Comment: Speci men Type: URINE SPECIMENOrdering Facility: [facility] Address: [address] [place] [address] Performed By: #### 2 4356-8 ####[facility] LABORATORYCLIA [id number] [place] [address] [place] pH (U) 7.5 [pH] Normal 5.0-8.0 [facility] Comment on above: Order Comment: Speci men Type: URINE SPECIMENOrdering Facility: [facility] Address: [address] [place] [address] Performed By: #### 2 4356-8 ####[facility] LABORATORYCLIA [id number] [place] [address] [place] Protein (U) [Mass/Vol] Negative Normal Trace, Negative [facility] Comment on above: Order Comment: Speci men Type: URINE SPECIMENOrdering Facility: [facility] Address: [address] [place] [address] Performed By: #### 2 4356-8 ####[facility] LABORATORYCLIA [id number] [place] [address] [place] RBC LM.HPF (Urine sed) [#/Area] 0-3 /HPF Normal 0-3 /HPF [facility] Comment on above: Order Comment: Speci men Type: URINE SPECIMENOrdering Facility: [facility] Address: [address] [place] [address] Performed By: #### 2 4356-8 ####[facility] LABORATORYCLIA [id number] [place] [id number] [place] Specific gravity (U) [Rel density] 1.009 Normal 1.005-1.030 [facility] Comment on above: Order Comment: Speci men Type: URINE SPECIMENOrdering Facility: [facility] Address: [address] [place] [address] Performed By: #### 2 4356-8 ####[facility] LABORATORYCLIA [id number] [place] [id number] [place] Urobilinogen Ql (U) Normal Normal Normal [facility] Comment on above: Order Comment: Speci men Type: URINE SPECIMENOrdering Facility: [facility] Address: [address] [place] [address] Performed By: #### 2 4356-8 ####[facility] LABORATORYCLIA [id number] [place] [id number] [place] WBC LM.HPF (Urine sed) [#/Area] 0-5 /HPF Normal 0-5 /HPF [facility] Comment on above: Order Comment: Speci men Type: URINE SPECIMENOrdering Facility: [facility] Address: [address] [place] [address] Performed By: #### 2 4356-8 ####[facility] LABORATORYCLIA [id number] [place] [id number] [place] CNPNon 06-17-2023 CNPN Normal [facility] Home Health Recordson 2023 Home Health Records [id number] B4#1.00TIFF Normal [facility] Physician Referralon 024 Physician Referral [id number] 101#1.00TIFF Normal [facility] Provider Letteron 06-16-2023 Provider Letter Normal [facility] CNPNon 06-15-2023 CNPN Normal [facility] ED Note-Physicianon 06-15-19 24 ED Note-Physician [id number]. [id number] D0#1.00TIFF Normal [facility] Outside Hospital Correspo ndenceon 06-15-2023 Outside [facility] Correspondence [id number]. [id number] A2#1.00TIFF Normal [facility] Physician Referralon 024 Physician Referral [id number] 38#1.00TIFF Normal [facility] RAD - CT Reporton 06-15-2023 RAD - CT Report [id number] F9#1.00TIFF Normal [facility] Transfer Inon 06-15-2023 Transfer In [id number] 80#1.00TIFF Normal [facility] Ambulatory Visit Summaryon 0 06-14-2023 Ambulatory Visit Summary Normal [address] [place] [address]- \.br\ Medications\.br\ What How Much When Why [...] Mouth Once a day (at bedtime)\.br\ Unchanged [facility] Prescription 0\.br\ Unchanged nystatin 100,000 Units Oral-Swish [...] for choosing us for your care.\.br\ \.br\ [facility] Auth for Release of Medical Recordson 06-14-2023 Auth for Release of Medical Records [id number] E3#1.00TIFF [facility] CNPNon 06-14-2023 CNPN Normal [facility] Family Medicine Office/Clini c Noteon 06-14-2023 Family Medicine Office/Clinic Note Normal [facility] Comment on above: Result Comment: Elec tronically Signed By: Jaquan Paula\.br\Date and Time Signed: 06/14/23 13:22 EDT Home Health Recordson 2023 Home Health Records [id number] E4#1.00TIFF [facility] Population Healthon 06-11-19 Population Health Normal [facility] Home Health Recordson 2023 Home Health Records [id number] 22#1.00TIFF [facility] Retail - Clinical Noteon Retail - Clinical Note [id number] F2#1.00TIFF [facility] ALLIED HEALTHon 06-09-2023 ALLIED HEALTH Normal [facility] Basic metabolic 2000 panelon 06-09-2023 Anion gap [Moles/Vol] 7 mmol/L Low - [facility] Comment on above: Order Comment: Speci men Type: BLOOD SPECIMENOrdering Facility: [facility] Address: [address] [place] [address] [place] [address] Performed By: #### 2 4321-2 ####[facility] PARKIA [id number] [place] [address] [place] Calcium [Mass/Vol] 8.6 mg/dL Normal 8.5-10.2 [facility] Comment on above: Order Comment: Speci men Type: BLOOD SPECIMENOrdering Facility: [facility] Address: [address] [place] [address] Performed By: #### 2 4321-2 ####[facility] [id number] [place] [address] [place] Chloride [Moles/Vol] 107 mmol/L High 97-105 [facility] Comment on above: Order Comment: Speci men Type: BLOOD SPECIMENOrdering Facility: [facility] Address: [address] [place] [address] Performed By: #### 2 4321-2 ####[facility] [id number] [place] [address] [place] CO2 [Moles/Vol] 24 mmol/L Normal 22-30 [facility] Comment on above: Order Comment: Speci men Type: BLOOD SPECIMENOrdering Facility: [facility] Address: [address] [place] [address] Performed By: #### 2 4321-2 ####[facility] [id number] [place] [address] [place] Creatinine [Mass/Vol] 0.68 mg/dL Normal 0.58-0.96 [facility] Comment on above: Order Comment: Speci men Type: BLOOD SPECIMENOrdering Facility: [facility] Address: [address] [place] [address] Performed By: #### 2 4321-2 ####[facility] [id number] [place] [address] [place] Creatinine and Glomerular filtration rate.predicted panel (S/P/Bld) 117 mL/min/1.73m??? Normal >=60 [facility] Comment on above: Order Comment: Speci men Type: BLOOD SPECIMENOrdering Facility: [facility] Address: [address] [place] [address] Result Comment: Jessica mated Glomerular Filtration Rate [...] #### 2 4321-2 ####[facility] LABORATORYCLIA [id number] [facility] [place] [address] [place] Glucose [Mass/Vol] 89 mg/dL Normal 74-99 [facility] Comment on above: Order Comment: Geraldo marrero Type: BLOOD SPECIMENOrdering Facility: [facility] Address: [address] [place] [address] Result Comment: The [place] [employer] (ADA) provides guidance for cutoff [...] Standards of Medical Care in Diabetes 2016, [place] [employer]. Diabetes Care. 2016.39(Suppl 1). Performed By: #### 2 4321-2 ####[facility] LABORATORYCLIA [id number] [facility] [place] [address] [place] Potassium [Moles/Vol] 4.1 mmol/L Normal 3.7-5.1 [facility] Comment on above: Order Comment: Geraldo marrero Type: BLOOD SPECIMENOrdering Facility: [facility] Address: [address] [place] [id number] Performed By: #### 2 4321-2 ####[facility] LABORATORYCLIA [id number] [facility] [place] [address] [place] Sodium [Moles/Vol] 138 mmol/L Normal 136-144 [facility] Comment on above: Order Comment: Speci men Type: BLOOD SPECIMENOrdering Facility: [facility] Address: [address] [place] [address] Performed By: #### 2 4321-2 ####[facility] LABORATORYCLIA [id number] [place] [address] [place] Urea nitrogen [Mass/Vol] 10 mg/dL Normal 7-21 [facility] Comment on above: Order Comment: Speci men Type: BLOOD SPECIMENOrdering Facility: [facility] Address: [address] [place] [address] Performed By: #### 2 4321-2 ####[facility] LABORATORYCLIA [id number] [place] [address] [place] CASE MANAGEMon 06-09-2023 CASE MANAGEM Normal [facility] CNDSon 06-09-2023 CNDS Normal [facility] CONSULT PROGon 06-08-2023 CONSULT PROG Normal [facility] l TOXICOLOGY SCREEN, ROUTINE U RINEon 06-08-2023 Amphetamines Confirm (U) [Mass/Vol] Negative Normal Negative [facility] Comment on above: Order Comment: Speci men Type: URINE SPECIMENOrdering Facility: [facility] Address: [address] [place] [address] Result Comment: Cuto ff threshold at 1000 ng/mL. Performed By: #### U TOX2 ####[facility] LABORATORYCLIA [id number] [facility] [place] [address] [place] BARBITURATES, URINE Negative Normal Negative [facility] Comment on above: Order Comment: Speci men Type: URINE SPECIMENOrdering Facility: [facility] Address: [address] [place] [address] Result Comment: Cuto ff threshold at 200 ng/mL. Performed By: #### U TOX2 ####[facility] LABORATORYIA [id number] [place] [address] [place] BENZODIAZEPINES, UR Negative Normal Negative [facility] Comment on above: Order Comment: Speci men Type: URINE SPECIMENOrdering Facility: [facility] Address: [address] [place] [address] Result Comment: Cuto ff threshold at 200 ng/mL. Performed By: #### U TOX2 ####[facility] LABORATORYCLIA [id number] [place] [address] [place] Cannabinoids Screen Ql (U) Negative Normal Negative [facility] Comment on above: Order Comment: Speci men Type: URINE SPECIMENOrdering Facility: [facility] Address: [address] [place] [address] Result Comment: Cuto ff threshold at 50 ng/mL. Performed By: #### U TOX2 ####[facility] PARKIA [id number] [place] [address] [place] Cocaine Ql (U) Negative Normal Negative [facility] Comment on above: Order Comment: Speci men Type: URINE SPECIMENOrdering Facility: [facility] Address: [address] [place] [address] Result Comment: Cuto ff threshold at 300 ng/mL. Performed By: #### U TOX2 ####[facility] PARKIA [id number] [place] [address] [place] Ethanol (U) [Mass/Vol] <11 Normal <11 [facility] Comment on above: Order Comment: Speci men Type: URINE SPECIMENOrdering Facility: [facility] Address: [address] [place] [address] Performed By: #### U TOX2 ####[facility] LABORATORYIA [id number] [place] [address] [place] Opiates Screen Ql (U) Negative Normal Negative [facility] Comment on above: Order Comment: Speci men Type: URINE SPECIMENOrdering Facility: [facility] Address: [address] [place] [address] Result Comment: Cuto ff threshold at 300 ng/mL. Performed By: #### U TOX2 ####[facility] LABORATORYCLIA [id number] [place] [address] [place] oxyCODONE cutoff Screen (U) [Mass/Vol] Negative Normal Negative [facility] Comment on above: Order Comment: Speci men Type: URINE SPECIMENOrdering Facility: [facility] Address: [address] [place] [address] Result Comment: Cuto ff threshold at 100 ng/mL. Performed By: #### U TOX2 ####[facility] PARKIA [id number] [place] [address] [place] Phencyclidine Ql (U) Negative Normal Negative [facility] Comment on above: Order Comment: Speci men Type: URINE SPECIMENOrdering Facility: [facility] Address: [address] [place] [address] Result Comment: Cuto ff threshold at 25 ng/mL. Performed By: #### U TOX2 ####[facility] PARK[facility] [id number] [place] [address] [place] Basic metabolic 2000 panelon 06-07-2023 Anion gap [Moles/Vol] 9 mmol/L Normal 9-18 [facility] Comment on above: Order Comment: Speci men Type: BLOOD SPECIMENOrdering Facility: [facility] Address: [address] [place] [address] Performed By: #### 2 4321-2 ####[facility] [id number] [place] [address] [place] Calcium [Mass/Vol] 8.7 mg/dL Normal 8.5-10.2 [facility] Comment on above: Order Comment: Speci men Type: BLOOD SPECIMENOrdering Facility: [facility] Address: [address] [place] [address] Performed By: #### 2 4321-2 ####[facility] [id number] [place] [address] [place] Chloride [Moles/Vol] 108 mmol/L High 97-105 [facility] Comment on above: Order Comment: Speci men Type: BLOOD SPECIMENOrdering Facility: [facility] Address: [address] [place] [address] Performed By: #### 2 4321-2 ####[facility] LABORATORYCLIA [id number] [place] [address] [place] CO2 [Moles/Vol] 23 mmol/L Normal 22-30 [facility] Comment on above: Order Comment: Speci men Type: BLOOD SPECIMENOrdering Facility: [facility] Address: [address] [place] [address] Performed By: #### 2 4321-2 ####[facility] LABORATORYCLIA [id number] [place] [address] [place] Creatinine [Mass/Vol] 0.68 mg/dL Normal 0.58-0.96 [facility] Comment on above: Order Comment: Speci men Type: BLOOD SPECIMENOrdering Facility: [facility] Address: [address] [place] [address] Performed By: #### 2 4321-2 ####[facility] LABORATORYIA [id number] [place] [address] [place] Creatinine and Glomerular filtration rate.predicted panel (S/P/Bld) 117 mL/min/1.73m??? Normal >=60 [facility] Comment on above: Order Comment: Speci men Type: BLOOD SPECIMENOrdering Facility: [facility] Address: [address] [place] [address] Result Comment: Jessica mated Glomerular Filtration Rate [...] #### 2 4321-2 ####[facility] LABORATORYCLIA [id number] [facility] [place] [address] [place] Glucose [Mass/Vol] 98 mg/dL Normal 74-99 [facility] Comment on above: Order Comment: Speci men Type: BLOOD SPECIMENOrdering Facility: [facility] Address: [address] [place], [place] [address] Result Comment: The [place] Diabetes Association (ADA) provides guidance for cutoff [...] Standards of Medical Care in Diabetes 2016, [place] [employer]. Diabetes Care. 2016.39(Suppl 1). Performed By: #### 2 4321-2 ####[facility] LABORATORYCLIA [id number] [place] [address] [place] Potassium [Moles/Vol] 4.2 mmol/L Normal 3.7-5.1 [facility] Comment on above: Order Comment: Speci men Type: BLOOD SPECIMENOrdering Facility: [facility] Address: [address] [place] [address] Performed By: #### 2 4321-2 ####[facility] LABORATORYIA [id number] [place] [address] [place] Sodium [Moles/Vol] 140 mmol/L Normal 136-144 [facility] Comment on above: Order Comment: Speci men Type: BLOOD SPECIMENOrdering Facility: [facility] Address: [address] [place] [address] Performed By: #### 2 4321-2 ####[facility] LABORATORYIA [id number] [place] [address] [place] Urea nitrogen [Mass/Vol] 9 mg/dL Normal 7-21 [facility] Comment on above: Order Comment: Speci men Type: BLOOD SPECIMENOrdering Facility: [facility] Address: [address] [place] [address] Performed By: #### 2 4321-2 ####[facility] LABORATORYIA [id number] [place] [address] [place] CASE MGT INIT ASSESon 2023 [facility] CBC panel Auto (Bld)on 06-06 Erythrocyte distribution width (RBC) [Ratio] 13.7 % Normal 11.5-15.0 [facility] Comment on above: Order Comment: Speci men Type: BLOOD SPECIMENOrdering Facility: [facility] Address: [address] [place] [address] Performed By: #### 5 8410-2 ####[facility] PARKIA [id number] [place] [id number] [place] Hematocrit (Bld) [Volume fraction] 32.6 % Low 36.0-46.0 [facility] Comment on above: Order Comment: Speci men Type: BLOOD SPECIMENOrdering Facility: [facility] Address: [address] [place] [address] Performed By: #### 5 8410-2 ####[facility] [id number] [place] [id number] [place] Hemoglobin (Bld) [Mass/Vol] 10.8 g/dL Low 11.5-15.5 [facility] Comment on above: Order Comment: Speci men Type: BLOOD SPECIMENOrdering Facility: [facility] Address: [address] [place] [address] Performed By: #### 5 8410-2 ####[facility]ORATORYIA [id number] [place] [address] [place] MCH (RBC) [Entitic mass] 29.9 pg Normal 26.0-34.0 [facility] Comment on above: Order Comment: Speci men Type: BLOOD SPECIMENOrdering Facility: [facility] Address: [address] [place] [address] Performed By: #### 5 8410-2 ####[facility]ATORYIA [id number] [place] [address] [place] MCHC (RBC) [Mass/Vol] 33.1 g/dL Normal 30.5-36.0 [facility] Comment on above: Order Comment: Speci men Type: BLOOD SPECIMENOrdering Facility: [facility] Address: [address] [place] [address] Performed By: #### 5 8410-2 ####[facility] [id number] [place] [address] [place] MCV (RBC) [Entitic vol] 90.3 fL Normal 80.0-100.0 [facility] Comment on above: Order Comment: Speci men Type: BLOOD SPECIMENOrdering Facility: [facility] Address: [address] [place] [address] Performed By: #### 5 8410-2 ####[facility] [id number] [place] [id number] [place] Nucleated RBC (Bld) [#/Vol] 10*3/uL Normal <0.01 [facility] Comment on above: Order Comment: Speci men Type: BLOOD SPECIMENOrdering Facility: [facility] Address: [address] [place] [address] Performed By: #### 5 8410-2 ####[facility] [id number] [place] [address] [place] Platelet mean volume (Bld) [Entitic vol] 10.5 fL Normal 9.0-12.7 [facility] Comment on above: Order Comment: Speci men Type: BLOOD SPECIMENOrdering Facility: [facility] Address: [address] [place] [address] Performed By: #### 5 8410-2 ####[facility] [id number] [place] [address] [place] Platelets (Bld) [#/Vol] 258 10*3/uL Normal 150-400 [facility] Comment on above: Order Comment: Speci men Type: BLOOD SPECIMENOrdering Facility: [facility] Address: [address] [place] [address] Performed By: #### 5 8410-2 ####[facility]ATORYIA [id number] [place] [address] [place] RBC (Bld) [#/Vol] 3.61 10*6/uL Low 3.90-5.20 [facility] Comment on above: Order Comment: Speci men Type: BLOOD SPECIMENOrdering Facility: [facility] Address: [address] [place] [address] Performed By: #### 5 8410-2 ####[facility] [id number] [place] [address] [place] WBC (Bld) [#/Vol] 3.65 10*3/uL Low 3.70-11.00 [facility] Comment on above: Order Comment: Speci men Type: BLOOD SPECIMENOrdering Facility: [facility] Address: [address] [place] [address] Performed By: #### 5 8410-2 ####[facility] [id number] [place] [address] [place] CONSULTon 06-07-2023 CONSULT Normal [facility] CONSULT [facility] NUTRITIONon 06-07-2023 NUTRITION Normal [facility] CBC W Auto Differential pane l (Bld)on 06-06-2023 Basophils (Bld) [#/Vol] 0.05 10*3/uL Normal <0.11 [facility] Comment on above: Order Comment: Speci men Type: BLOOD SPECIMENOrdering Facility: [facility] Address: [address] [place] [address] Performed By: #### 5 7021-8 ####[facility]ATORYIA [id number] [place] [id number] [place] Basophils/100 WBC (Bld) 1.0 % Normal [facility] Comment on above: Order Comment: Speci men Type: BLOOD SPECIMENOrdering Facility: [facility] Address: [address] [place] [address] Performed By: #### 5 7021-8 ####[facility]ORATORYCLIA [id number] [facility]ITALVD.[place] [id number] [place] Differential cell count method Nom (Bld) Auto Normal [facility] Comment on above: Order Comment: Speci men Type: BLOOD SPECIMENOrdering Facility: [facility] Address: [address] [place] [address] Performed By: #### 5 7021-8 ####[facility]ORATORYCLIA [id number] [facility] [place] [address] [place] Eosinophils (Bld) [#/Vol] 0.11 10*3/uL Normal <0.46 [facility] Comment on above: Order Comment: Speci men Type: BLOOD SPECIMENOrdering Facility: [facility] Address: [address] [place] [address] Performed By: #### 5 7021-8 ####[facility]ATORYIA [id number] [facility] [place] [address] [place] Eosinophils/100 WBC (Bld) 2.2 % Normal [facility] Comment on above: Order Comment: Speci men Type: BLOOD SPECIMENOrdering Facility: [facility] Address: [address] [place] [address] Performed By: #### 5 7021-8 ####[facility] [id number] [facility] H[facility]PITALVDMICHAEL[place] [id number] [place] Erythrocyte distribution width (RBC) [Ratio] 13.4 % Normal 11.5-15.0 [facility] Comment on above: Order Comment: Speci men Type: BLOOD SPECIMENOrdering Facility: [facility] Address: [address] [place] [address] Performed By: #### 5 7021-8 ####[facility]ATORYIA [id number] [place] [id number] [place] Hematocrit (Bld) [Volume fraction] 35.9 % Low 36.0-46.0 [facility] Comment on above: Order Comment: Speci men Type: BLOOD SPECIMENOrdering Facility: [facility] Address: [address] [place] [address] Performed By: #### 5 7021-8 ####[facility]ATORYIA [id number] [place] [address] [place] Hemoglobin (Bld) [Mass/Vol] 12.2 g/dL Normal 11.5-15.5 [facility] Comment on above: Order Comment: Speci men Type: BLOOD SPECIMENOrdering Facility: [facility] Address: [address] [place] [address] Performed By: #### 5 7021-8 ####[facility]ORYIA [id number] [place] [id number] [place] Immature granulocytes (Bld) [#/Vol] 10*3/uL Normal <0.10 [facility] Comment on above: Order Comment: Speci men Type: BLOOD SPECIMENOrdering Facility: [facility] Address: [address] [place] [address] Performed By: #### 5 7021-8 ####[facility]ATORYIA [id number] [place] [id number] [place] Immature granulocytes/100 WBC (Bld) 0.2 % Normal [facility] Comment on above: Order Comment: Speci men Type: BLOOD SPECIMENOrdering Facility: [facility] Address: [address] [place] [address] Performed By: #### 5 7021-8 ####[facility]ORYIA [id number] [place] [address] [place] Lymphocytes (Bld) [#/Vol] 1.70 10*3/uL Normal 1.00-4.00 [facility] Comment on above: Order Comment: Speci men Type: BLOOD SPECIMENOrdering Facility: [facility] Address: [address] [place] [address] Performed By: #### 5 7021-8 ####[facility]ORATORYCLIA [id number] [place] [address] [place] Lymphocytes/100 WBC (Bld) 33.3 % Normal [facility] Comment on above: Order Comment: Speci men Type: BLOOD SPECIMENOrdering Facility: [facility] Address: [address] [place] [address] Performed By: #### 5 7021-8 ####[facility]ATORYIA [id number] [address] [place] MCH (RBC) [Entitic mass] 30.1 pg Normal 26.0-34.0 [facility] Comment on above: Order Comment: Speci men Type: BLOOD SPECIMENOrdering Facility: [facility] Address: [address] [place] [address] Performed By: #### 5 7021-8 ####[facility] [id number] [address] [place] MCHC (RBC) [Mass/Vol] 34.0 g/dL Normal 30.5-36.0 [facility] Comment on above: Order Comment: Speci men Type: BLOOD SPECIMENOrdering Facility: [facility] Address: [address] [place] [address] Performed By: #### 5 7021-8 ####[facility] [id number] [address] [place] MCV (RBC) [Entitic vol] 88.6 fL Normal 80.0-100.0 [facility] Comment on above: Order Comment: Speci men Type: BLOOD SPECIMENOrdering Facility: [facility] Address: [address] [place] [address] Performed By: #### 5 7021-8 ####[facility]ORYIA [id number] [address] [place] Monocytes (Bld) [#/Vol] 0.42 10*3/uL Normal <0.87 [facility] Comment on above: Order Comment: Speci men Type: BLOOD SPECIMENOrdering Facility: [facility] Address: [address] [place] [address] Performed By: #### 5 7021-8 ####[facility] [id number] [place] [address] [place] Monocytes/100 WBC (Bld) 8.2 % Normal [facility] Comment on above: Order Comment: Speci men Type: BLOOD SPECIMENOrdering Facility: [facility] Address: [address] [place] [address] Performed By: #### 5 7021-8 ####[facility]ORATORYCLIA [id number] [place] [address] [place] Neutrophils (Bld) [#/Vol] 2.81 10*3/uL Normal 1.45-7.50 [facility] Comment on above: Order Comment: Speci men Type: BLOOD SPECIMENOrdering Facility: [facility] Address: [address] [place] [address] Performed By: #### 5 7021-8 ####[facility] [id number] [place] [address] [place] Neutrophils/100 WBC (Bld) 55.1 % Normal [facility] Comment on above: Order Comment: Speci men Type: BLOOD SPECIMENOrdering Facility: [facility] Address: [address] [place] [address] Performed By: #### 5 7021-8 ####[facility] [id number] [place] [address] [place] Nucleated RBC (Bld) [#/Vol] 10*3/uL Normal <0.01 [facility] Comment on above: Order Comment: Speci men Type: BLOOD SPECIMENOrdering Facility: [facility] Address: [address] [place] [address] Performed By: #### 5 7021-8 ####[facility]ORYIA [id number] [place] [address] [place] Nucleated RBC/100 WBC (Bld) [Ratio] 0.0 /100 WBC Normal [facility] Comment on above: Order Comment: Speci men Type: BLOOD SPECIMENOrdering Facility: [facility] Address: [address] [place] [address] Performed By: #### 5 7021-8 ####[facility]ORATORYCLIA [id number] [place] [address] [place] Platelet mean volume (Bld) [Entitic vol] 10.3 fL Normal 9.0-12.7 [facility] Comment on above: Order Comment: Speci men Type: BLOOD SPECIMENOrdering Facility: [facility] Address: [address] [place] [address] Performed By: #### 5 7021-8 ####[facility] [id number] [place] [address] [place] Platelets (Bld) [#/Vol] 323 10*3/uL Normal 150-400 [facility] Comment on above: Order Comment: Speci men Type: BLOOD SPECIMENOrdering Facility: [facility] Address: [address] [place] [address] Performed By: #### 5 7021-8 ####[facility] [id number] [place] [address] [place] RBC (Bld) [#/Vol] 4.05 10*6/uL Normal 3.90-5.20 [facility] Comment on above: Order Comment: Speci men Type: BLOOD SPECIMENOrdering Facility: [facility] Address: [address] [place] [address] Performed By: #### 5 7021-8 ####[facility] [id number] [place] [address] [place] WBC (Bld) [#/Vol] 5.10 10*3/uL Normal 3.70-11.00 [facility] Comment on above: Order Comment: Speci men Type: BLOOD SPECIMENOrdering Facility: [facility] Address: [address] [place] [address] Performed By: #### 5 7021-8 ####[facility]ATORYIA [id number] [place] [address] [place] CT ABD/PEL W IVCONon 024 CT ABD/PEL W IVCON Normal [facility] Comprehensive metabolic 2000 panelon 06-06-2023 Albumin [Mass/Vol] 4.3 g/dL Normal 3.9-4.9 [facility] Comment on above: Order Comment: Speci men Type: BLOOD SPECIMENOrdering Facility: [facility] Address: [address] [place] [address] Performed By: #### 2 4323-8, 3040-3, ####[facility]ATORYCLIA [id number] [place] [address] [place] ALP [Catalytic activity/Vol] 62 U/L Normal 34-123 [facility] Comment on above: Order Comment: Speci men Type: BLOOD SPECIMENOrdering Facility: [facility] Address: [address] [place] [address] Performed By: #### 2 4323-8, 3039-3, ####[facility] [id number] [facility] [place] [address] [place] ALT [Catalytic activity/Vol] 16 U/L Normal 7-38 [facility] Comment on above: Order Comment: Speci men Type: BLOOD SPECIMENOrdering Facility: [facility] Address: [address] [place] [address] Performed By: #### 2 4323-8, 0-3, ####[facility]ATORYIA [id number] [place] [address] [place] Anion gap [Moles/Vol] 10 mmol/L Normal 9-18 [facility] Comment on above: Order Comment: Speci men Type: BLOOD SPECIMENOrdering Facility: [facility] Address: [address] [place] [address] Performed By: #### 2 4323-8, 3040-3, ####[facility]ORYIA [id number] [place] [address] [place] AST [Catalytic activity/Vol] 28 U/L Normal 13-35 [facility] Comment on above: Order Comment: Speci men Type: BLOOD SPECIMENOrdering Facility: [facility] Address: [address] [place] [address] Performed By: #### 2 4323-8, 3, ####[facility]ORATORYCLIA [id number] [place] [address] [place] Bilirubin [Mass/Vol] 0.3 mg/dL Normal 0.2-1.3 [facility] Comment on above: Order Comment: Speci men Type: BLOOD SPECIMENOrdering Facility: [facility] Address: [address] [place] [id number] Performed By: #### 2 4323-8, 3039-04, ####[facility] [id number] [place] [address] [place] Calcium [Mass/Vol] 9.1 mg/dL Normal 8.5-10.2 [facility] Comment on above: Order Comment: Speci men Type: BLOOD SPECIMENOrdering Facility: [facility] Address: [address] [place] [address] Performed By: #### 2 4323-8, 3039-04, ####[facility] [id number] [place] [address] [place] Chloride [Moles/Vol] 103 mmol/L Normal 97-105 [facility] Comment on above: Order Comment: Speci men Type: BLOOD SPECIMENOrdering Facility: [facility] Address: [address] [place] [address] Performed By: #### 2 4323-8, 3, ####[facility]ATORYIA [id number] [place] [address] [place] CO2 [Moles/Vol] 23 mmol/L Normal 22-30 [facility] Comment on above: Order Comment: Speci men Type: BLOOD SPECIMENOrdering Facility: [facility] Address: [address] [place] [address] Performed By: #### 2 4323-8, 3040-3, ####[facility]ORATORYCLIA [id number] [facility] [place] [address] [place] Creatinine [Mass/Vol] 0.74 mg/dL Normal 0.58-0.96 [facility] Comment on above: Order Comment: Geraldo [facility] Type: BLOOD SPECIMENOrdering Facility: [facility] Address: [address] [place] [address] Performed By: #### 2 4323-8, 3040-3, ####[facility]ORATORYCLIA [id number] [place] [address] [place] [facility] Creatinine and Glomerular filtration rate.predicted panel (S/P/Bld) 109 mL/min/1.73m??? Normal >=60 [facility] Comment on above: Order Comment: [facility] Type: BLOOD SPECIMENOrdering Facility: [facility] Address: [address] [place] [address] Result Comment: Jessica mated Glomerular Filtration Rate [...] GFR. Performed By: #### 2 4323-8, 0-3, ####[facility]ORATORYCLIA [id number] [place] [address] [place] Glucose [Mass/Vol] 91 mg/dL Normal 74-99 [facility] Comment on above: Order Comment: Lyssai [facility] Type: BLOOD SPECIMENOrdering Facility: [facility] Address: [address] [place] [address] Result Comment: The [place] [employer] (ADA) provides guidance for cutoff [...] Standards of Medical Care in Diabetes 2016, [place] [employer]. Diabetes Care. 2016.39(Suppl 1). Performed By: #### 2 4323-8, 3039-3, ####[facility] [id number] [place] [address] [place] Potassium [Moles/Vol] 4.0 mmol/L Normal 3.7-5.1 [facility] Comment on above: Order Comment: Speci men Type: BLOOD SPECIMENOrdering Facility: [facility] Address: [address] [place] [address] Performed By: #### 2 4323-8, 3, ####[facility] [id number] [place] [address] [place] Protein [Mass/Vol] 7.4 g/dL Normal 6.3-8.0 [facility] Comment on above: Order Comment: Speci men Type: BLOOD SPECIMENOrdering Facility: [facility] Address: [address] [place] [address] Performed By: #### 2 4323-8, 3, ####[facility] [id number] [place] [address] [place] Sodium [Moles/Vol] 136 mmol/L Normal 136-144 [facility] Comment on above: Order Comment: Speci men Type: BLOOD SPECIMENOrdering Facility: [facility] Address: [address] [place] [address] Performed By: #### 2 4323-8, 3, ####[facility]ORATORYIA [id number] [place] [address] [place] Urea nitrogen [Mass/Vol] 14 mg/dL Normal 7- [facility] Comment on above: Order Comment: Speci men Type: BLOOD SPECIMENOrdering Facility: [facility] Address: [address] [place] [address] Performed By: #### 2 4323-8, 0-3, ####[facility]ORATORYCLIA [id number] [facility] [place] [address] [place] ECG COMPLETEon 06-06-2023 ECG COMPLETE Normal [facility] 06-06-2023 ED NOTE Normal [facility] ED NOTE Normal [facility] ED PROV NOTEon 06-06-2023 ED PROV NOTE Normal [facility] FLUABV+SARS-CoV-2+RSV Pnl Re sp HANK+probeon 06-06-2023 FLUABV+SARS-CoV-2+R SV Pnl Resp HANK+probe Normal [facility] Comment on above: Performed By: #### 9 5941-1 ####[facility]ORATORYCLIA [id number] [facility] [place] [address] [place] HISTORY PHYSICALon 4 HISTORY PHYSICAL Normal [facility] Lipase SerPl-cCncon 06-06-19 24 Lipase [Catalytic activity/Vol] 75 U/L High 16-61 [facility] Comment on above: Order Comment: Speci men Type: BLOOD SPECIMENOrdering Facility: [facility] Address: [address] [place] [address] Performed By: #### 2 4323-8, 3, ####[facility]ORATORYCLIA [id number] [facility] [place] [address] [place] Magnesium SerPl-mCncon 06-05 Magnesium [Mass/Vol] 2.1 mg/dL Normal 1.7-2.3 [facility] Comment on above: Order Comment: Speci men Type: BLOOD SPECIMENOrdering Facility: [facility] Address: [address] [place] [address] Performed By: #### 2 4323-8, 3039-3, ####[facility] [id number] [place] [address] [place] Urinalysis complete panel (U )on 06-06-2023 Bilirubin Ql (U) Negative Normal Negative [facility] Comment on above: Order Comment: Speci men Type: URINE SPECIMENOrdering Facility: [facility] Address: [address] [place] [address] Performed By: #### 2 4356-8 ####[facility] [id number] [place] [address] [place] Clarity (Unsp spec) Clear Normal Clear [facility] Comment on above: Order Comment: Speci men Type: URINE SPECIMENOrdering Facility: [facility] Address: [address] [place] [address] Performed By: #### 2 4356-8 ####[facility] [id number] [place] [address] [place] Color (U) Light Yellow Normal yellow [facility] Comment on above: Order Comment: Speci men Type: URINE SPECIMENOrdering Facility: [facility] Address: [address] [place] [address] Performed By: #### 2 4356-8 ####[facility] [id number] [place] [address] [place] Epithelial cells LM.HPF (Urine sed) [#/Area] Few Normal [facility] Comment on above: Order Comment: Speci men Type: URINE SPECIMENOrdering Facility: [facility] Address: [address] [place] [address] Performed By: #### 2 4356-8 ####[facility] [id number] [place] [address] [place] Glucose Test strip (U) [Mass/Vol] Negative Normal Trace, Negative [facility] Comment on above: Order Comment: Speci men Type: URINE SPECIMENOrdering Facility: [facility] Address: [address] [place] [address] Performed By: #### 2 4356-8 ####[facility] [id number] [place] [address] [place] Hemoglobin Ql (U) Negative Normal Negative, Trace [facility] Comment on above: Order Comment: Speci men Type: URINE SPECIMENOrdering Facility: [facility] Address: [address] [place] [address] Performed By: #### 2 4356-8 ####[facility] [id number] [place] [address] [place] Ketones Ql (U) Negative Normal Negative, Trace [facility] Comment on above: Order Comment: Speci men Type: URINE SPECIMENOrdering Facility: [facility] Address: [address] [place] [address] Performed By: #### 2 4356-8 ####[facility] [id number] [place] [address] [place] Leukocyte esterase Test strip Ql (U) Negative Normal Negative, 25 Pat[place]/uL [facility] Comment on above: Order Comment: Speci men Type: URINE SPECIMENOrdering Facility: [facility] Address: [address] [place] [address] Performed By: #### 2 4356-8 ####[facility] [id number] [address] [place] Nitrite Ql (U) Negative Normal Negative [facility] Comment on above: Order Comment: Speci men Type: URINE SPECIMENOrdering Facility: [facility] Address: [address] [place] [address] Performed By: #### 2 4356-8 ####[facility] [id number] [address] [place] pH (U) 7.0 [pH] Normal 5.0-8.0 [facility] Comment on above: Order Comment: Speci men Type: URINE SPECIMENOrdering Facility: [facility] Address: [address] [place] [address] Performed By: #### 2 4356-8 ####[facility] [id number] [place] [address] [place] Protein (U) [Mass/Vol] Trace Normal Trace, Negative [facility] Comment on above: Order Comment: Speci men Type: URINE SPECIMENOrdering Facility: [facility] Address: [address] [place] [address] Performed By: #### 2 4356-8 ####[facility] [id number] [place] [address] [place] RBC LM.HPF (Urine sed) [#/Area] 3-5 /HPF Abnormal 0-3 /HPF [facility] Comment on above: Order Comment: Speci men Type: URINE SPECIMENOrdering Facility: [facility] Address: [address] [place] [address] Performed By: #### 2 4356-8 ####[facility] [id number] [place] [id number] [place] Specific gravity (U) [Rel density] 1.024 Normal 1.005-1.030 [facility] Comment on above: Order Comment: Speci men Type: URINE SPECIMENOrdering Facility: [facility] Address: [address] [place] [address] Performed By: #### 2 4356-8 ####[facility] [id number] [place] [address] [place] Urobilinogen Ql (U) Normal Normal Normal [facility] Comment on above: Order Comment: Speci men Type: URINE SPECIMENOrdering Facility: [facility] Address: [address] [place] [address] Performed By: #### 2 4356-8 ####[facility] [id number] [place] [id number] [place] WBC LM.HPF (Urine sed) [#/Area] 0-5 /HPF Normal 0-5 /HPF [facility] Comment on above: Order Comment: Speci men Type: URINE SPECIMENOrdering Facility: [facility] Address: [address] [place], [place] [address], [place] [address] Performed By: #### 2 4356-8 ####[facility]ORY[facility] [id number] [facility] [place] [address] [place] ED Note-Physicianon 06-04-19 ED Note-Physician [id number] Normal [facility] Ambulatory Visit Summaryon 0 06-02-2023 Ambulatory Visit Summary Normal [address] [place] [address] [place] [address]- \.br\ Medications\.br\ What How Much When Why [...] for choosing us for your care.\.br\ \.br\ [facility] Family Medicine Office/Clini c Noteon 06-02-2023 Family Medicine Office/Clinic Note Normal [facility] Comment on above: Result Comment: Elec tronically Signed By: Jaquan Paula\.br\Date and Time Signed: 06/02/23 12:30 EDT Provider Letteron 06-02-2023 Provider Letter Normal [facility] Provider Letter Normal [facility] Population Healthon 05-31-19 Population Health Normal [facility] Alanine aminotransferase [En zymatic activity/volume] in Serum or PlasmaOrdered By: Gabino Parker on 05-30-2023 ALT [Catalytic activity/Vol] 11 U/L Normal 7-52 [facility] Comment on above: Performed By: #### H EPATIC, MG, LIPASE, CMP, CBC #### [facility] [address] [place] [address] Albumin [Mass/volume] in Ser um or Plasma by Bromocresol green (BCG) dye binding methoOrdered By: Gabino Parker on 05-30-2023 Albumin BCG dye [Mass/Vol] 4.1 g/dL 3.5-5.7 [facility] Alkaline phosphatase [Enzyma tic activity/volume] in Serum or PlasmaOrdered By: Gabino Parker on 05-30-2023 ALP [Catalytic activity/Vol] 56 U/L Normal 34-104 [facility] Comment on above: Performed By: #### H EPATIC, MG, LIPASE, CMP, CBC #### [facility] [address] [place] [address] Aspartate aminotransferase [ Enzymatic activity/volume] in Serum or PlasmaOrdered By: Gabino Parker on 05-30-2023 AST [Catalytic activity/Vol] 22 U/L Normal 13-39 [facility] Comment on above: Performed By: #### H EPATIC, MG, LIPASE, CMP, CBC #### [facility] [address] [place] [address] Automated basophil %Ordered By: Gabino Parker on 05-30-2023 Basophils/100 WBC (Bld) 0.4 % Normal . [facility] Comment on above: Performed By: #### H EPATIC, MG, LIPASE, CMP, CBC #### [facility] [address] [place] [address] Automated basophil countOrde red By: Gabino Parker on 05-30-2023 Basophils (Bld) [#/Vol] 0.0 10*3/uL Normal 0.0-0.2 [facility] Comment on above: Result Comment: PERF ORMED BY: [place] [address] PATHOLOGIST G[employer]LLER BAUTISTA BAKER M.D. Performed By: #### H EPATIC, MG, LIPASE, CMP, CBC #### [facility] [address] [place] [address] Automated blood monocyte cou ntOrdered By: Gabino Parker on 05-30-2023 Monocytes (Bld) [#/Vol] 0.4 10*3/uL Normal 0.0-0.8 [facility] Comment on above: Performed By: #### H EPATIC, MG, LIPASE, CMP, CBC #### [address] Automated eosinophil %Ordere d By: Gabino Parker on 05-30-2023 Eosinophils/100 WBC (Bld) 0.4 % Normal . [facility] Comment on above: Performed By: #### H EPATIC, MG, LIPASE, CMP, CBC #### [facility] [address] [place] [address] Automated eosinophil countOr dered By: Gabino Parker on 05-30-2023 Eosinophils (Bld) [#/Vol] 0.0 10*3/uL Normal 0.0-0.45 [facility] Comment on above: Performed By: #### H EPATIC, MG, LIPASE, CMP, CBC #### [facility] [address] [place] [address] Automated erythrocytes count in urine sediment (number/area)Ordered By: Gabino Parker on 05-30-2023 RBC Auto (Urine sed) [#/Area] 3-4 [HPF] 0-4 [facility] Automated leukocytes count i n urine sediment (number/area)Ordered By: Gabino Parker on 05-30-2023 WBC Auto (Urine sed) [#/Area] 5-9 [HPF] High 0-4 [facility] Automated monocyte %Ordered By: Gabino Parker on 05-30-2023 Monocytes/100 WBC (Bld) 4.5 % Normal . [facility] Comment on above: Performed By: #### H EPATIC, MG, LIPASE, CMP, CBC #### [facility] [address] Automated neutrophil %Ordere d By: Gabino Parker on 05-30-2023 Neutrophils/100 WBC (Bld) 79.0 % Normal . [facility] Comment on above: Performed By: #### H EPATIC, MG, LIPASE, CMP, CBC #### [facility] [address] Automated urine color determ inationOrdered By: Gabino Parker on 05-30-2023 Color (U) Yellow Normal Yellow [facility] Comment on above: Order Comment: Name Collection Type:: Clean-Voided Midstream Performed By: #### A DDONUAPLUS, UHCG, CUU #### [address] Bilirubin Test strip Ql (U)O rdered By: Gabino Parker on 05-30-2023 Bilirubin Ql (U) Negative Negative [facility] Bilirubin.direct [Mass/volum e] in Serum or PlasmaOrdered By: aGbino Parker on 05-30-2023 Bilirubin.direct [Mass/Vol] 0.10 mg/dL 0.03-0.18 [facility] Bilirubin.total [Mass/volume ] in Serum or PlasmaOrdered By: Gabino Parker on 05-30-2023 Bilirubin [Mass/Vol] 0.4 mg/dL Normal 0.3-1.0 [facility] Comment on above: Performed By: #### H EPATIC, MG, LIPASE, CMP, CBC #### [facility] [address] [place] [address] [place] CNPNon 05-30-2023 CNPN Normal [facility] abdomen pelvis w conon CT abdomen pelvis w con [facility] [address] [place] [address] [place] [address] CT Scan Report Signed Patient: Abbey Garcia MR#: [id number] : 1990 Acct:[id number] Age/Sex: 33 / F ADM Date: 05/30/23 Loc: ER Room: Type: [facility] ER Attending Dr: Copies to: Gabino Parker [...] Melisa Hutchinson M.D.05/30/2023 5:49 PM Dictation Location: [place] [address] Transcribed By: SULEMA 05/30/23 0460 Dictated By: Melisa Hutchinson II, MD 05/30/23 1740 Signed By: 05/30/23 1749 Normal [facility] Calcium [Mass/volume] in Ser um or PlasmaOrdered By: Gabino Parker on 05-30-2023 Calcium [Mass/Vol] 9.3 mg/dL Normal 8.6-10.3 [facility] Comment on above: Performed By: #### H EPATIC, MG, LIPASE, CMP, CBC #### [address] Carbon dioxide, total [Moles /volume] in Serum or PlasmaOrdered By: Gabino Parker on 05-30-2023 CO2 [Moles/Vol] 27.7 mmol/L Normal 21.0-31.0 [facility] Comment on above: Performed By: #### H EPATIC, MG, LIPASE, CMP, CBC #### [address] Chloride [Moles/volume] in S elder or PlasmaOrdered By: Gabino Parker on 05-30-2023 Chloride [Moles/Vol] 103 mmol/L Normal 98-107 [facility] Comment on above: Performed By: #### H EPATIC, MG, LIPASE, CMP, CBC #### [address] Complete Blood Count Auto Di ffon 05-30-2023 Mean Corpuscular HGB Conc 33.8 g/dL Normal 32.0-35.0 [facility] Comment on above: Performed By: #### H EPATIC, MG, LIPASE, CMP, CBC #### [place] [address] [place] Monocytes/100 WBC (Bld) 16.47 % Normal 0.00-20.00 [facility] Comment on above: Performed By: #### H EPATIC, MG, LIPASE, CMP, CBC #### [facility] [address] [place] [address] NRBC% 0.1 /100{WBC} Normal 0-0.5 [facility] Comment on above: Performed By: #### H EPATIC, MG, LIPASE, CMP, CBC #### [facility] [address] Comprehensive Metabolic Pane nestor 05-30-2023 Albumin [Mass/Vol] 4.1 g/dL Normal 3.5-5.7 [facility] Comment on above: Performed By: #### H EPATIC, MG, LIPASE, CMP, CBC #### [address] Creatinine Clr Calc Pharmacy 118.42 Normal [facility] Comment on above: Performed By: #### H EPATIC, MG, LIPASE, CMP, CBC #### [address] GFR/1.73 sq M.predicted MDRD (S/P/Bld) [Vol rate/Area] mL/min/{1.73_m2} Normal [facility] Comment on above: Performed By: #### H EPATIC, MG, LIPASE, CMP, CBC #### [address] Creatinine [Mass/volume] in Serum or PlasmaOrdered By: Gabino Parker on 05-30-2023 Creatinine [Mass/Vol] 0.70 mg/dL Normal 0.60-1.20 [facility] Comment on above: Performed By: #### H EPATIC, MG, LIPASE, CMP, CBC #### [address] Dipstick and Microscopicon 0 05-30-2023 Appearance (U) Clear Normal Clear [facility] Comment on above: Order Comment: Name Collection Type:: Clean-Voided Midstream Performed By: #### A DDONUAPLUS, UHCG, CUU #### [place] [address] [place] Bacteria,Urine None Seen Normal None Seen [facility] Comment on above: Order Comment: Name Collection Type:: Clean-Voided Midstream Performed By: #### A DDONUAPLUS, UHCG, CUU #### [place] [address] [place] Bilirubin,Urine Negative Normal Negative [facility] Comment on above: Order Comment: Name Collection Type:: Clean-Voided Midstream Performed By: #### A DDONUAPLUS, UHCG, CUU #### [place] [address] [place] Glucose Ql (U) Normal Normal Normal [facility] Comment on above: Order Comment: Name Collection Type:: Clean-Voided Midstream Performed By: #### A DDONUAPLUS, UHCG, CUU #### [place] [address] [place] Hyaline Casts,Urine 0-8 Normal 0-8 [facility] Comment on above: Order Comment: Name Collection Type:: Clean-Voided Midstream Performed By: #### A DDONUAPLUS, UHCG, CUU #### [address] Ketones Ql (U) Negative Normal Negative [facility] Comment on above: Order Comment: Name Collection Type:: Clean-Voided Midstream Performed By: #### A DDONUAPLUS, UHCG, CUU #### [place] [address] [place] Leukocyte esterase Test strip Ql (U) 1+ High Negative [facility] Comment on above: Order Comment: Name Collection Type:: Clean-Voided Midstream Performed By: #### A DDONUAPLUS, UHCG, CUU #### [place] [address] [place] Nitrite,Urine Negative Normal Negative [facility] Comment on above: Order Comment: Name Collection Type:: Clean-Voided Midstream Performed By: #### A DDONUAPLUS, UHCG, CUU #### [place] [address] [place] Occult Blood,Urine Negative Normal Negative [facility] Comment on above: Order Comment: Name Collection Type:: Clean-Voided Midstream Performed By: #### A DDONUAPLUS, UHCG, CUU #### [address] [address] [place] Protein,Urine Negative Normal Negative [facility] Comment on above: Order Comment: Name Collection Type:: Clean-Voided Midstream Performed By: #### A DDONUAPLUS, UHCG, CUU #### [address] RBC,Urine 3-4 Normal 0-4 [facility] Comment on above: Order Comment: Name Collection Type:: Clean-Voided Midstream Performed By: #### A DDONUAPLUS, UHCG, CUU #### [address] Specificy [place],Urine 1.011 Normal 1.001-1.030 [facility] Comment on above: Order Comment: Name Collection Type:: Clean-Voided Midstream Performed By: #### A DDONUAPLUS, UHCG, CUU #### [address] Squamous Epithelial Cell,Urine 0-1 Normal 0-2 [facility] Comment on above: Order Comment: Name Collection Type:: Clean-Voided Midstream Performed By: #### A DDONUAPLUS, UHCG, CUU #### [address] Urobilinogen,Urine Normal Normal Normal [facility] Comment on above: Order Comment: Name Collection Type:: Clean-Voided Midstream Performed By: #### A DDONUAPLUS, UHCG, CUU #### [address] WBC,Urine 5-9 High 0-4 [facility] Comment on above: Order Comment: Name Collection Type:: Clean-Voided Midstream Performed By: #### A DDONUAPLUS, UHCG, CUU #### [address] Erythrocyte distribution wid th [Ratio] by Automated countOrdered By: Gabino Parker on 05-30-2023 Erythrocyte distribution width (RBC) [Ratio] 15.5 % High 11.9-15.3 [facility] Comment on above: Performed By: #### H EPATIC, MG, LIPASE, CMP, CBC #### [facility] [address] Erythrocytes [#/volume] in B lood by Automated countOrdered By: Gabino Parker on 05-30-2023 RBC (Bld) [#/Vol] 3.86 10*6/uL Normal 3.60-5.00 [facility] Comment on above: Performed By: #### H EPATIC, MG, LIPASE, CMP, CBC #### [facility] [address] Glucose [Mass/volume] in Ser um or PlasmaOrdered By: Gabino Parker on 05-30-2023 Glucose [Mass/Vol] 81 mg/dL Normal 70-100 [facility] Comment on above: ADA recommended refe rence rangeRandom Glucose Reference Range is dependent on time and content of last meal. Glucose of more than 200 mg/dL in a nonstressed, ambulatory subject supports the diagnosis of Diabetes Mellitus. Result Comment: [place] om Glucose Reference Range is dependent on time and content of last meal. Glucose of more than 200 mg/dL in a nonstressed, ambulatory subject supports the diagnosis of Diabetes Mellitus. ADA recommended reference range Performed By: #### H EPATIC, MG, LIPASE, CMP, CBC #### [address] HCG ( test) IA.rapi d Ql (U)Ordered By: Gabino Parker on 05-30-2023 HCG ( test) Ql (U) Negative [facility] HCG,Urineon 05-30-2023 Beta HCG ( test) Ql (U) Negative Normal [facility] Comment on above: Order Comment: Name Collection Type:: Clean-Voided Midstream Result Comment: PERF ORMED BY: [place] [address] PATHOLOGIST G[employer] LEAF ROLLER BAUTISTA BAKER M.D. Performed By: #### A DDONUAPLUS, UHCG, CUU #### [address] Hematocrit [Volume Fraction] of Blood by Automated countOrdered By: Gabino Parker on 05-30-2023 Hematocrit (Bld) [Volume fraction] 34.9 % Normal 34.0-46.4 [facility] Comment on above: Performed By: #### H EPATIC, MG, LIPASE, CMP, CBC #### [facility] [address] [place] [address] Hemoglobin [Mass/volume] in BloodOrdered By: Gabino Parker on 05-30-2023 Hemoglobin (Bld) [Mass/Vol] 11.8 g/dL Normal 11.8-15.4 [facility] Comment on above: Performed By: #### H EPATIC, MG, LIPASE, CMP, CBC #### [address] Hepatic Panelon 05-30-2023 Bilirubin,Indirect 0.3 mg/dL Normal [facility] Comment on above: Performed By: #### H EPATIC, MG, LIPASE, CMP, CBC #### [address] Bilirubin.indirect [Mass/Vol] 0.10 mg/dL Normal 0.03-0.18 [facility] Comment on above: Performed By: #### H EPATIC, MG, LIPASE, CMP, CBC #### [address] Ketones Auto test strip (U) [Mass/Vol]Ordered By: Gabino Parker on 05-30-2023 Ketones (U) [Mass/Vol] Negative Negative [facility] - UrinalysisOrder ed By: Gabino Parker on 05-30-2023 Hyaline casts LM Ql (Urine sed) 0-8 [LPF] 0-8 [facility] Leukocytes [#/volume] correc darvin for nucleated erythrocytes in Blood by Automated counOrdered By: Gabino Parker on 05-30-2023 WBC corrected for nucl RBC Auto (Bld) [#/Vol] 8.8 10*3/uL 3.8-11.6 [facility] Leukocytes [#/volume] in Blo od by Automated countOrdered By: aGbino Parker on 05-30-2023 WBC (Bld) [#/Vol] 8.8 10*3/uL Normal 3.8-11.6 [facility] Comment on above: Performed By: #### H EPATIC, MG, LIPASE, CMP, CBC #### [address] Lipase [Enzymatic activity/v olume] in Serum or PlasmaOrdered By: Gabino Parker on 05-30-2023 Lipase [Catalytic activity/Vol] 37.0 U/L Normal 11.0-82.0 [facility] Comment on above: Result Comment: PERF ORMED BY: [place] [address] PATHOLOGIST G[employer] LEAF ROLLER BAUTISTA BAKER M.D. Performed By: #### H EPATIC, MG, LIPASE, CMP, CBC #### [address] Lymphocytes [#/volume] in Bl ood by Automated countOrdered By: Gabino Parker on 05-30-2023 Lymphocytes (Bld) [#/Vol] 1.4 10*3/uL Normal 1.00-4.8 [facility] Comment on above: Performed By: #### H EPATIC, MG, LIPASE, CMP, CBC #### [address] Lymphocytes/100 leukocytes i n Blood by Automated countOrdered By: Gabino Parker on 05-30-2023 Lymphocytes/100 WBC (Bld) 15.7 % Normal . [facility] Comment on above: Performed By: #### H EPATIC, MG, LIPASE, CMP, CBC #### [place] [address] [place] MCH [Entitic mass] by Automa darvin countOrdered By: Gabino Parker on 05-30-2023 MCH (RBC) [Entitic mass] 30.5 pg Normal 24.7-34.3 [facility] Comment on above: Performed By: #### H EPATIC, MG, LIPASE, CMP, CBC #### [facility] [address] MCHC Auto (RBC) [Mass/Vol]Or dered By: Gabino Parker on 05-30-2023 MCHC (RBC) [Mass/Vol] 33.8 g/dL 32.0-35.0 [facility] MCV [Entitic volume] by Auto mated countOrdered By: Gabino Parker on 05-30-2023 MCV (RBC) [Entitic vol] 90.3 fL Normal 80-100 [facility] Comment on above: Performed By: #### H EPATIC, MG, LIPASE, CMP, CBC #### [facility] [address] [place] [address] Magnesium [Mass/volume] in S elder or PlasmaOrdered By: Gabino Parker on 05-30-2023 Magnesium [Mass/Vol] 2.1 mg/dL Normal 1.9-2.7 [facility] Comment on above: Performed By: #### H EPATIC, MG, LIPASE, CMP, CBC #### [facility] [address] [place] [address] Monocyte distribution width [Entitic volume] in Blood by AutomatedOrdered By: Gabino Parker on 05-30-2023 Monocyte distribution width Auto (Bld) [Entitic vol] 16.47 % 0.00-20.00 [facility] Neutrophils [#/volume] in Bl ood by Automated countOrdered By: Gabino Parker on 05-30-2023 Neutrophils (Bld) [#/Vol] 6.9 10*3/uL Normal 1.8-7.7 [facility] Comment on above: Performed By: #### H EPATIC, MG, LIPASE, CMP, CBC #### [facility] [address] [place] [address] Nitrite Test strip Ql (U)Ord ered By: Gabino Parker on 05-30-2023 Nitrite Ql (U) Negative Negative [facility] No Panel InformationOrdered By: Gabino Parker on 05-30-2023 Estimated GFR (CKD-EPI) > 60.0 mL/Min [facility] Creatinine Clearance (Chem 118.42 [facility] Nucleated erythrocytes [Pres ence] in Blood by Automated countOrdered By: Gabino Parker on 05-30-2023 Nucleated RBC Auto Ql (Bld) 0.1 /100{WBC} 0-0.5 [facility] Platelet mean volume [Entiti c volume] in Blood by Automated countOrdered By: Gabino Parker on 05-30-2023 Platelet mean volume (Bld) [Entitic vol] 9.5 fL Normal 6.3-10.7 [facility] Comment on above: Performed By: #### H EPATIC, MG, LIPASE, CMP, CBC #### [facility] [facility] [address] [place] [address] Platelets [#/volume] in Bloo d by Automated countOrdered By: Gabino Parker on 05-30-2023 Platelets (Bld) [#/Vol] 270 10*3/uL Normal 150-450 [facility] Comment on above: Performed By: #### H EPATIC, MG, LIPASE, CMP, CBC #### [facility] [address] [place] [address] Potassium [Moles/volume] in Serum or PlasmaOrdered By: Gabino Parker on 05-30-2023 Potassium [Moles/Vol] 4.0 mmol/L Normal 3.5-5.1 [facility] Comment on above: Performed By: #### H EPATIC, MG, LIPASE, CMP, CBC #### [facility] [address] [place] [address] Protein Auto test strip (U) [Mass/Vol]Ordered By: Gabino Parker on 05-30-2023 Protein (U) [Mass/Vol] Negative Negative [facility] Protein [Mass/volume] in Ser um or PlasmaOrdered By: Gabino Parker on 05-30-2023 Protein [Mass/Vol] 7.2 g/dL Normal 6.4-8.9 [facility] Comment on above: Performed By: #### H EPATIC, MG, LIPASE, CMP, CBC #### [facility] [address] [place] [address] Serum globulin measurement b y calculation (mass/volume)Ordered By: Gabino Parker on 05-30-2023 Globulin (S) [Mass/Vol] 3.1 g/dL Normal [facility] Comment on above: Performed By: #### H EPATIC, MG, LIPASE, CMP, CBC #### [facility] [address] [place] [address] Serum or plasma albumin/glob ulin mass ratioOrdered By: Gabino Parker on 05-30-2023 Albumin/Globulin [Mass ratio] 1.3 {ratio} [facility] Comment on above: Performed By: #### H EPATIC, MG, LIPASE, CMP, CBC #### [facility] [address] [place] [address] Serum or plasma anion gap de terminationOrdered By: Gabino Parker on 05-30-2023 Anion gap [Moles/Vol] 12.3 mmol/L Normal 6.0-15.0 [facility] Comment on above: Performed By: #### H EPATIC, MG, LIPASE, CMP, CBC #### [facility] [address] [place] [address] Serum or plasma non-glucuron idated bilirubin measurement (mass/volume)Ordered By: Gabino Parker on 05-30-2023 Bilirubin.indirect [Mass/Vol] 0.3 mg/dL [facility] Sodium [Moles/volume] in Ser um or PlasmaOrdered By: Gabino Parker on 05-30-2023 Sodium [Moles/Vol] 139 mmol/L Normal 136-145 [facility] Comment on above: Performed By: #### H EPATIC, MG, LIPASE, CMP, CBC #### [facility] [address] [place] [address] Specific gravity Auto test s trip (U) [Rel density]Ordered By: Gabino Parker on 05-30-2023 Specific gravity (U) [Rel density] 1.011 1.001-1.030 [facility] Squamous epithelial cells de tection in urine sediment by light microscopyOrdered By: Gabino Parker on 05-30-2023 Epithelial cells.squamous LM Ql (Urine sed) 0-1 [HPF] 0-2 [facility] Urea nitrogen [Mass/volume] in Serum or PlasmaOrdered By: Gabino Parker on 05-30-2023 Urea nitrogen [Mass/Vol] 6 mg/dL Low 7-25 [facility] Comment on above: Performed By: #### H EPATIC, MG, LIPASE, CMP, CBC #### [facility] [address] [place] [address] [place] Urine Cultureon 05-30-2023 Bacteria identified Cx Nom (U) 75,000 colonies/ml mixed bacterial skin contaminants 2 Days PERFORMED BY: [place] [address] PATHOLOGIST GOLD LEAF ROLLER BAUTISTA BAKER M.D. Normal [facility] Comment on above: Performed By: #### A CORY, BRITTANIECG, CUU #### [facility] [address] [place] [address] Urine bacteria detection by automated methodOrdered By: Gabino Parker on 05-30-2023 Bacteria Auto Ql (U) None seen None Seen [facility] Urine clarity by refractomet ry automatedOrdered By: Gabino Parker on 05-30-2023 Clarity Refractometry automated (U) Clear Clear [facility] Urine culture routineOrdered By: Gabino Parker on 05-30-2023 Bacteria identified Cx Nom (U) 2 Days [facility] Urine glucose measurement by automated test strip (mass/volume)Ordered By: Gabino Parker on 05-30-2023 Glucose Auto test strip (U) [Mass/Vol] Normal mg/dL Normal [facility] Urine hemoglobin detection b y automated test stripOrdered By: Gabino Parker on 05-30-2023 Hemoglobin Auto test strip Ql (U) Negative Negative [facility] Urine leukocyte esterase det ection by automated test stripOrdered By: Gabino Parker on 05-30-2023 Leukocyte esterase Auto test strip Ql (U) 1+ High Negative [facility] Urine pH measurement by auto mated test stripOrdered By: Gabino Parker on 05-30-2023 pH (U) [pH] Normal 5.0-9.0 [facility] Comment on above: Order Comment: Name Collection Type:: Clean-Voided Midstream Performed By: #### A CORY [facility], [facility] #### [facility] [address] Urobilinogen Auto test strip (U) [Mass/Vol]Ordered By: Gabino Parker on 05-30-2023 Urobilinogen (U) [Mass/Vol] Normal mg/dL Normal [facility] Basic metabolic 2000 panelon 05-28-2023 Anion gap [Moles/Vol] 10 mmol/L Normal 9-18 [facility] Comment on above: Order Comment: Speci men Type: BLOOD SPECIMENOrdering Facility: [facility] Address: [address] [place] [address] Performed By: #### 2 4321-2, , 2776-02 ####[facility]ATORYCLIA [id number] [place] [address] [place] Calcium [Mass/Vol] 8.5 mg/dL Normal 8.5-10.2 [facility] Comment on above: Order Comment: Speci men Type: BLOOD SPECIMENOrdering Facility: [facility] Address: [address] [place] [address] Performed By: #### 2 4321-2, , 2776-02 ####[facility] LABORATORYCLIA [id number] [place] [address] [place] Chloride [Moles/Vol] 105 mmol/L Normal 97-105 [facility] Comment on above: Order Comment: Speci men Type: BLOOD SPECIMENOrdering Facility: [facility] Address: [address] [place] [address] Performed By: #### 2 4321-2, , 2776-02 ####[facility] LABORATORYCLIA [id number] [place] [id number] [place] CO2 [Moles/Vol] 24 mmol/L Normal 22-30 [facility] Comment on above: Order Comment: Speci men Type: BLOOD SPECIMENOrdering Facility: [facility] Address: [address] [place] [address] Performed By: #### 2 4321-2, , 2776-02 ####[facility] LABORATORYCLIA [id number] [place] [address] [place] Creatinine [Mass/Vol] 0.52 mg/dL Low 0.58-0.96 [facility] Comment on above: Order Comment: Geraldo marrero Type: BLOOD SPECIMENOrdering Facility: [facility] Address: [address] [place] [address] Performed By: #### 2 4321-2, , 2776-02 ####[facility] LABORATORYCLIA [id number] [place] [id number] [facility] Creatinine and Glomerular filtration rate.predicted panel (S/P/Bld) 125 mL/min/1.73m??? Normal >=60 [facility] Comment on above: Order Comment: Geraldo marrero Type: BLOOD SPECIMENOrdering Facility: [facility] Address: [address] [place] [address] Result Comment: Jessica mated Glomerular Filtration Rate [...] Performed By: #### 2 4321-2, , 2776-02 ####[facility] LABORATORYCLIA [id number] [place] [id number] [place] Glucose [Mass/Vol] 77 mg/dL Normal 74-99 [facility] Comment on above: Order Comment: Geraldo marrero Type: BLOOD SPECIMENOrdering Facility: [facility] Address: [address] [place] [address] Result Comment: The [place] [employer] (ADA) provides guidance for cutoff [...] Standards of Medical Care in Diabetes 2016, [place] [employer]. Diabetes Care. 2016.39(Suppl 1). Performed By: #### 2 4321-2, , 2776-02 ####[facility] LABORATORYCLIA [id number] [place] [id number] [place] Potassium [Moles/Vol] 4.2 mmol/L Normal 3.7-5.1 [facility] Comment on above: Order Comment: Speci men Type: BLOOD SPECIMENOrdering Facility: [facility] Address: [address] [place] [address] Performed By: #### 2 4321-2, , 2776-02 ####[facility] LABORATORYCLIA [id number] [place] [id number] [place] Sodium [Moles/Vol] 139 mmol/L Normal 136-144 [facility] Comment on above: Order Comment: Speci men Type: BLOOD SPECIMENOrdering Facility: [facility] Address: [address] [place] [address] Performed By: #### 2 1-2, , 2776-02 ####[facility] LABORATORYCLIA [id number] [place] [id number] [place] Urea nitrogen [Mass/Vol] 8 mg/dL Normal 7-21 [facility] Comment on above: Order Comment: Speci men Type: BLOOD SPECIMENOrdering Facility: [facility] Address: [address] [place] [address] Performed By: #### 2 4321-2, , 2776-02 ####[facility] LABORATORYCLIA [id number] [place] [id number] [place] CBC panel Auto (Bld)on 05-27 Erythrocyte distribution width (RBC) [Ratio] 13.7 % Normal 11.5-15.0 [facility] Comment on above: Order Comment: Speci men Type: BLOOD SPECIMENOrdering Facility: [facility] Address: [address] [place] [address] Performed By: #### 5 8410-2 ####[facility] LABORATORYCLIA [id number] [address] Hematocrit (Bld) [Volume fraction] 31.5 % Low 36.0-46.0 [facility] Comment on above: Order Comment: Speci men Type: BLOOD SPECIMENOrdering Facility: [facility] Address: [address] [place] [address] Performed By: #### 5 8410-2 ####[facility] LABORATORYCLIA [id number] [address] [place] Hemoglobin (Bld) [Mass/Vol] 11.1 g/dL Low 11.5-15.5 [facility] Comment on above: Order Comment: Speci men Type: BLOOD SPECIMENOrdering Facility: [facility] Address: [address] [place] [address] Performed By: #### 5 8410-2 ####[facility] LABORATORYCLIA [id number] [address] [place] MCH (RBC) [Entitic mass] 31.4 pg Normal 26.0-34.0 [facility] Comment on above: Order Comment: Speci men Type: BLOOD SPECIMENOrdering Facility: [facility] Address: [address] [place] [address] Performed By: #### 5 8410-2 ####[facility] LABORATORYCLIA [id number] [address] [place] MCHC (RBC) [Mass/Vol] 35.2 g/dL Normal 30.5-36.0 [facility] Comment on above: Order Comment: Speci men Type: BLOOD SPECIMENOrdering Facility: [facility] Address: [address] [place] [address] Performed By: #### 5 8410-2 ####[facility] LABORATORYCLIA [id number] [address] [place] MCV (RBC) [Entitic vol] 89.2 fL Normal 80.0-100.0 [facility] Comment on above: Order Comment: Speci men Type: BLOOD SPECIMENOrdering Facility: [facility] Address: [address] [place] [address] Performed By: #### 5 8410-2 ####[facility] LABORATORYCLIA [id number] [place] [address] [place] Nucleated RBC (Bld) [#/Vol] 10*3/uL Normal <0.01 [facility] Comment on above: Order Comment: Speci men Type: BLOOD SPECIMENOrdering Facility: [facility] Address: [address] [place] [address] Performed By: #### 5 8410-2 ####[facility] LABORATORYCLIA [id number] [place] [address] [place] Platelet mean volume (Bld) [Entitic vol] 11.8 fL Normal 9.0-12.7 [facility] Comment on above: Order Comment: Speci men Type: BLOOD SPECIMENOrdering Facility: [facility] Address: [address] [place] [address] Performed By: #### 5 8410-2 ####[facility] LABORATORYCLIA [id number] [place] [address] [place] Platelets (Bld) [#/Vol] 199 10*3/uL Normal 150-400 [facility] Comment on above: Order Comment: Speci men Type: BLOOD SPECIMENOrdering Facility: [facility] Address: [address] [place] [address] Performed By: #### 5 8410-2 ####[facility] LABORATORYCLIA [id number] [place] [id number] [place] RBC (Bld) [#/Vol] 3.53 10*6/uL Low 3.90-5.20 [facility] Comment on above: Order Comment: Speci men Type: BLOOD SPECIMENOrdering Facility: [facility] Address: [address] [place] [address] Performed By: #### 5 8410-2 ####[facility] LABORATORYCLIA [id number] [place] [address] [place] WBC (Bld) [#/Vol] 6.24 10*3/uL Normal 3.70-11.00 [facility] Comment on above: Order Comment: Speci men Type: BLOOD SPECIMENOrdering Facility: [facility] Address: [address] [place] [address] Performed By: #### 5 8410-2 ####[facility] LABORATORYCLIA [id number] [place] [id number] [place] CNCOon 05-28-2023 CNCO Letter Text Normal [facility] CNDSon 05-28-2023 CNDS Normal [facility] CNPNon 05-28-2023 CNPN [facility] Magnesium SerPl-mCncon 05-27 Magnesium [Mass/Vol] 1.9 mg/dL Normal 1.7-2.3 [facility] Comment on above: Order Comment: Speci men Type: BLOOD SPECIMENOrdering Facility: [facility] Address: [address] [place] [address] Performed By: #### 2 4321-2, 46729-9, 2776-1 ####[facility] LABORATORYCLIA [id number] [place] [id number] [place] NURSING PROGon 05-28-2023 NURSING PROG [facility] Phosphate SerPl-mCncon 05-27 Phosphate [Mass/Vol] 2.3 mg/dL Low 2.7-4.8 [facility] Comment on above: Order Comment: Speci men Type: BLOOD SPECIMENOrdering Facility: [facility] Address: [address] [place] [address] Performed By: #### 2 4321-2, 13979-0, 2777-1 ####[facility] LABORATORYCLIA [id number] [place] [id number] [place] Basic metabolic 2000 panelon 05-27-2023 Anion gap [Moles/Vol] 10 mmol/L Normal 9-18 [facility] Comment on above: Order Comment: Speci men Type: BLOOD SPECIMENOrdering Facility: [facility] Address: [address] [place] [address] Performed By: #### 2 4321-2, , 2776-02 ####[facility] LABORATORYCLIA [id number] [place] [address] [place] Calcium [Mass/Vol] 8.9 mg/dL Normal 8.5-10.2 [facility] Comment on above: Order Comment: Speci men Type: BLOOD SPECIMENOrdering Facility: [facility] Address: [facility][note 3] [place] [address] Performed By: #### 2 4321-2, , 2776-02 ####[facility] LABORATORYCLIA [id number] [place] [id number] [place] Chloride [Moles/Vol] 104 mmol/L Normal 97-105 [facility] Comment on above: Order Comment: Speci men Type: BLOOD SPECIMENOrdering Facility: [facility] Address: [facility][note 3] [place] [address] Performed By: #### 2 4321-2, , 2776-02 ####[facility] LABORATORYCLIA [id number] [place] [id number] [place] CO2 [Moles/Vol] 25 mmol/L Normal 22-30 [facility] Comment on above: Order Comment: Speci men Type: BLOOD SPECIMENOrdering Facility: [facility] Address: [facility][note 3] [place] [address] Performed By: #### 2 4321-2, , 2776-02 ####[facility] LABORATORYCLIA [id number] [place] [id number] [place] Creatinine [Mass/Vol] 0.57 mg/dL Low 0.58-0.96 [facility] Comment on above: Order Comment: Speci men Type: BLOOD SPECIMENOrdering Facility: [facility] Address: [facility] [place] [id number] Performed By: #### 2 4321-2, , 2776-02 ####[facility] LABORATORYCLIA [id number] [place] [id number] [place] Creatinine and Glomerular filtration rate.predicted panel (S/P/Bld) 122 mL/min/1.73m??? Normal >=60 [facility] Comment on above: Order Comment: Geraldo marrero Type: BLOOD SPECIMENOrdering Facility: [facility] Address: [address] [place] [address] Result Comment: Jessica mated Glomerular Filtration Rate [...] Performed By: #### 2 4321-2, , 2776-02 ####[facility] LABORATORYCLIA [id number] [place] [address] [place] Glucose [Mass/Vol] 101 mg/dL High 74-99 [facility] Comment on above: Order Comment: Geraldo marrero Type: BLOOD SPECIMENOrdering Facility: [facility] Address: [address] [place] [address] Result Comment: The [place] [employer] (ADA) provides guidance for cutoff [...] Standards of Medical Care in Diabetes 2016, [place] [employer]. Diabetes Care. 2016.39(Suppl 1). Performed By: #### 2 4321-2, , 2776-02 ####[facility] LABORATORYCLIA [id number] [place] [id number] [place] Potassium [Moles/Vol] 4.0 mmol/L Normal 3.7-5.1 [facility] Comment on above: Order Comment: Speci men Type: BLOOD SPECIMENOrdering Facility: [facility] Address: [address] [place] [address] Performed By: #### 2 4321-2, , 2776-02 ####[facility] LABORATORYCLIA [id number] [place] [id number] [place] Sodium [Moles/Vol] 139 mmol/L Normal 136-144 [facility] Comment on above: Order Comment: Speci men Type: BLOOD SPECIMENOrdering Facility: [facility] Address: [address] [place] [address] Performed By: #### 2 4321-2, , 2776-02 ####[facility] LABORATORYCLIA [id number] [place] [id number] [place] Urea nitrogen [Mass/Vol] 6 mg/dL Low 7-21 [facility] Comment on above: Order Comment: Speci men Type: BLOOD SPECIMENOrdering Facility: [facility] Address: [address] [place] [address] Performed By: #### 2 4321-2, , 2776-02 ####[facility] LABORATORYCLIA [id number] [place] [id number] [place] CASE MANAGEMon 05-27-2023 CASE MANAGEM Normal [facility] CBC panel Auto (Bld)on 05-26 Erythrocyte distribution width (RBC) [Ratio] 13.5 % Normal 11.5-15.0 [facility] Comment on above: Order Comment: Speci men Type: BLOOD SPECIMENOrdering Facility: [facility] Address: [address] [place] [address] Performed By: #### 5 8410-2 ####[facility] LABORATORYCLIA [id number] [place] [id number] [place] Hematocrit (Bld) [Volume fraction] 36.5 % Normal 36.0-46.0 [facility] Comment on above: Order Comment: Speci men Type: BLOOD SPECIMENOrdering Facility: [facility] Address: [address] [place] [address] Performed By: #### 5 8410-2 ####[facility] LABORATORYCLIA [id number] [place] [address] [place] Hemoglobin (Bld) [Mass/Vol] 12.8 g/dL Normal 11.5-15.5 [facility] Comment on above: Order Comment: Speci men Type: BLOOD SPECIMENOrdering Facility: [facility] Address: [address] [place] [address] Performed By: #### 5 8410-2 ####[facility] LABORATORYCLIA [id number] [place] [address] [place] MCH (RBC) [Entitic mass] 30.9 pg Normal 26.0-34.0 [facility] Comment on above: Order Comment: Speci men Type: BLOOD SPECIMENOrdering Facility: [facility] Address: [address] [place] [address] Performed By: #### 5 8410-2 ####[facility] LABORATORYCLIA [id number] [address] [place] MCHC (RBC) [Mass/Vol] 35.1 g/dL Normal 30.5-36.0 [facility] Comment on above: Order Comment: Speci men Type: BLOOD SPECIMENOrdering Facility: [facility] Address: [address] [place] [address] Performed By: #### 5 8410-2 ####[facility] LABORATORYCLIA [id number] [address] [place] MCV (RBC) [Entitic vol] 88.2 fL Normal 80.0-100.0 [facility] Comment on above: Order Comment: Speci men Type: BLOOD SPECIMENOrdering Facility: [facility] Address: [address] [place] [address] Performed By: #### 5 8410-2 ####[facility] LABORATORYCLIA [id number] [address] [place] Nucleated RBC (Bld) [#/Vol] 10*3/uL Normal <0.01 [facility] Comment on above: Order Comment: Speci men Type: BLOOD SPECIMENOrdering Facility: [facility] Address: [address] [place] [address] Performed By: #### 5 8410-2 ####[facility] LABORATORYCLIA [id number] [place] [id number] [place] Platelet mean volume (Bld) [Entitic vol] 11.5 fL Normal 9.0-12.7 [facility] Comment on above: Order Comment: Speci men Type: BLOOD SPECIMENOrdering Facility: [facility] Address: [address] [place] [address] Performed By: #### 5 8410-2 ####[facility] LABORATORYCLIA [id number] [place] [id number] [place] Platelets (Bld) [#/Vol] 205 10*3/uL Normal 150-400 [facility] Comment on above: Order Comment: Speci men Type: BLOOD SPECIMENOrdering Facility: [facility] Address: [address] [place] [address] Performed By: #### 5 8410-2 ####[facility] LABORATORYCLIA [id number] [place] [id number] [place] RBC (Bld) [#/Vol] 4.14 10*6/uL Normal 3.90-5.20 [facility] Comment on above: Order Comment: Speci men Type: BLOOD SPECIMENOrdering Facility: [facility] Address: [address] [place] [address] Performed By: #### 5 8410-2 ####[facility] LABORATORYCLIA [id number] [place] [id number] [place] WBC (Bld) [#/Vol] 6.24 10*3/uL Normal 3.70-11.00 [facility] Comment on above: Order Comment: Speci men Type: BLOOD SPECIMENOrdering Facility: [facility] Address: [address] [place] [address] Performed By: #### 5 8410-2 ####[facility] LABORATORYCLIA [id number] [place] [id number] [place] Magnesium SerPl-ncon 05-26 Magnesium [Mass/Vol] 1.8 mg/dL Normal 1.7-2.3 [facility] Comment on above: Order Comment: Speci men Type: BLOOD SPECIMENOrdering Facility: [facility] Address: [address] [place] [address] Performed By: #### 2 4321-2, , 2776-02 ####[facility] LABORATORYCLIA [id number] [place] [id number] [facility] [facility] NURSING PROGon 05-27-2023 NURSING PROG Normal [facility] NUTRITIONon 05-27-2023 NUTRITION Normal [facility] Phosphate SerPl-mCncon 05-26 Phosphate [Mass/Vol] 2.4 mg/dL Low 2.7-4.8 [facility] Comment on above: Order Comment: Speci men Type: BLOOD SPECIMENOrdering Facility: [facility] Address: [address] [place] [id number] Performed By: #### 2 4321-2, , 2776-02 ####[facility] LABORATORYCLIA [id number] [place] [id number] [facility] [place] ALLIED HEALTHon 05-26-2023 ALLIED HEALTH Normal [facility] Basic metabolic 2000 panelon 05-26-2023 Anion gap [Moles/Vol] 13 mmol/L Normal 9-18 [facility] Comment on above: Order Comment: Speci men Type: BLOOD SPECIMENOrdering Facility: [facility] Address: [address] [place] [address] Performed By: #### 2 4321-2, , 2776-02 ####[facility] LABORATORYCLIA [id number] [place] [id number] [place] Calcium [Mass/Vol] 9.0 mg/dL Normal 8.5-10.2 [facility] Comment on above: Order Comment: Speci men Type: BLOOD SPECIMENOrdering Facility: [facility] Address: [address] [place] [id number] Performed By: #### 2 4321-2, , 2776-02 ####[facility] LABORATORYCLIA [id number] [place] [address] [place] Chloride [Moles/Vol] 103 mmol/L Normal 97-105 [facility] Comment on above: Order Comment: Speci men Type: BLOOD SPECIMENOrdering Facility: [facility] Address: [address] [place] [address] Performed By: #### 2 4321-2, , 2776-02 ####[facility] LABORATORYCLIA [id number] [place] [id number] [place] CO2 [Moles/Vol] 20 mmol/L Low 22-30 [facility] Comment on above: Order Comment: Speci men Type: BLOOD SPECIMENOrdering Facility: [facility] Address: [address] [place] [address] Performed By: #### 2 4321-2, , 2776-02 ####[facility] LABORATORYCLIA [id number] [place] [id number] [place] Creatinine [Mass/Vol] 0.68 mg/dL Normal 0.58-0.96 [facility] Comment on above: Order Comment: Speci men Type: BLOOD SPECIMENOrdering Facility: [facility] Address: [address] [place] [address] Performed By: #### 2 4321-2, , 2776-02 ####[facility] LABORATORYCLIA [id number] [place] [id number] [facility] Creatinine and Glomerular filtration rate.predicted panel (S/P/Bld) 117 mL/min/1.73m??? Normal >=60 [facility] Comment on above: Order Comment: Speci men Type: BLOOD SPECIMENOrdering Facility: [facility] Address: [address] [place] [address] Result Comment: Jessica mated Glomerular Filtration Rate [...] Performed By: #### 2 4321-2, , 2776-02 ####[facility] LABORATORYCLIA [id number] [place] [id number] [place] Glucose [Mass/Vol] 71 mg/dL Low 74-99 [facility] Comment on above: Order Comment: Geraldo marrero Type: BLOOD SPECIMENOrdering Facility: [facility] Address: [address] [place] [address] Result Comment: The [place] [employer] (ADA) provides guidance for cutoff [...] Standards of Medical Care in Diabetes 2016, [place] [employer]. Diabetes Care. 2016.39(Suppl 1). Performed By: #### 2 4321-2, , 2776-02 ####[facility] LABORATORYCLIA [id number] [place] [id number] [place] Potassium [Moles/Vol] 4.3 mmol/L Normal 3.7-5.1 [facility] Comment on above: Order Comment: Geraldo marrero Type: BLOOD SPECIMENOrdering Facility: [facility] Address: [address] [place] [address] Performed By: #### 2 4321-2, , 2776-02 ####[facility] LABORATORYCLIA [id number] [place] [id number] [place] Sodium [Moles/Vol] 136 mmol/L Normal 136-144 [facility] Comment on above: Order Comment: Geraldo marrero Type: BLOOD SPECIMENOrdering Facility: [facility] Address: [address] [place] [address] Performed By: #### 2 4321-2, 41895-6, 2776- ####OS[facility] LABORATORYCLIA [id number] [place] [id number] [place] Urea nitrogen [Mass/Vol] 10 mg/dL Normal 7-21 [facility] Comment on above: Order Comment: Speci men Type: BLOOD SPECIMENOrdering Facility: [facility] Address: [address] [place] [address] Performed By: #### 2 4321-2, , 2776-02 ####OS[facility] LABORATORYCLIA [id number] [place] [id number] [place] CASE MGT INIT ASSESon 2023 CASE MGT INIT ASSES Normal [facility] CBC panel Auto (Bld)on 05-25 Erythrocyte distribution width (RBC) [Ratio] 13.3 % Normal 11.5-15.0 [facility] Comment on above: Order Comment: Speci men Type: BLOOD SPECIMENOrdering Facility: [facility] Address: [address] [place] [address] Performed By: #### 5 8410-2 ####OS[facility] LABORATORYCLIA [id number] [place] [id number] [place] Hematocrit (Bld) [Volume fraction] 33.8 % Low 36.0-46.0 [facility] Comment on above: Order Comment: Speci men Type: BLOOD SPECIMENOrdering Facility: [facility] Address: [address] [place] [address] Performed By: #### 5 8410-2 ####OS[facility] LABORATORYCLIA [id number] [place] [id number] [place] Hemoglobin (Bld) [Mass/Vol] 11.5 g/dL Normal 11.5-15.5 [facility] Comment on above: Order Comment: Speci men Type: BLOOD SPECIMENOrdering Facility: [facility] Address: [address] [place] [address] Performed By: #### 5 8410-2 ####OSVALDO LABORATORYCLIA [id number] [address] [place] [facility] MCH (RBC) [Entitic mass] 30.5 pg Normal 26.0-34.0 [facility] Comment on above: Order Comment: Speci men Type: BLOOD SPECIMENOrdering Facility: [facility] Address: [address] [place] [address] Performed By: #### 5 8410-2 ####OS[facility] LABORATORYCLIA [id number] [address] [place] [facility] MCHC (RBC) [Mass/Vol] 34.0 g/dL Normal 30.5-36.0 [facility] Comment on above: Order Comment: Speci men Type: BLOOD SPECIMENOrdering Facility: [facility] Address: [address] [place] [address] Performed By: #### 5 8410-2 ####OS[facility] LABORATORYCLIA [id number] [address] [place] MCV (RBC) [Entitic vol] 89.7 fL Normal 80.0-100.0 [facility] Comment on above: Order Comment: Speci men Type: BLOOD SPECIMENOrdering Facility: [facility] Address: [address] [place] [address] Performed By: #### 5 8410-2 ####OS[facility] LABORATORYCLIA [id number] [address] Nucleated RBC (Bld) [#/Vol] 10*3/uL Normal <0.01 [facility] Comment on above: Order Comment: Speci men Type: BLOOD SPECIMENOrdering Facility: [facility] Address: [address] [place] [address] Performed By: #### 5 8410-2 ####[facility] LABORATORYCLIA [id number] [address] Platelet mean volume (Bld) [Entitic vol] 11.7 fL Normal 9.0-12.7 [facility] Comment on above: Order Comment: Speci men Type: BLOOD SPECIMENOrdering Facility: [facility] Address: [address] [place] [address] Performed By: #### 5 8410-2 ####[facility] LABORATORYCLIA [id number] [place] [id number] [facility] [place] Platelets (Bld) [#/Vol] 181 10*3/uL Normal 150-400 [facility] Comment on above: Order Comment: Speci men Type: BLOOD SPECIMENOrdering Facility: [facility] Address: [address] [place] [address] Performed By: #### 5 8410-2 ####[facility] LABORATORYCLIA [id number] [place] [id number] [place] RBC (Bld) [#/Vol] 3.77 10*6/uL Low 3.90-5.20 [facility] Comment on above: Order Comment: Speci men Type: BLOOD SPECIMENOrdering Facility: [facility] Address: [address] [place] [address] Performed By: #### 5 8410-2 ####[facility] LABORATORYCLIA [id number] [place] [id number] [facility] [place] WBC (Bld) [#/Vol] 5.34 10*3/uL Normal 3.70-11.00 [facility] Comment on above: Order Comment: Speci men Type: BLOOD SPECIMENOrdering Facility: [facility] Address: [address] [place] [address] Performed By: #### 5 8410-2 ####[facility] LABORATORYCLIA [id number] [place] [id number] [facility] [place] Magnesium SerPl-mCncon 05-25 Magnesium [Mass/Vol] 1.6 mg/dL Low 1.7-2.3 [facility] Comment on above: Order Comment: Speci men Type: BLOOD SPECIMENOrdering Facility: [facility] Address: [address] [place] [address] Performed By: #### 2 4321-2, 15665-5, 2777-1 ####[facility] LABORATORYCLIA [id number] [place] [id number] [place] NUTRITIONon 05-26-2023 NUTRITION Normal [facility] Phosphate SerPl-mCncon 05-25 Phosphate [Mass/Vol] 4.5 mg/dL Normal 2.7-4.8 [facility] Comment on above: Order Comment: Speci men Type: BLOOD SPECIMENOrdering Facility: [facility] Address: [address] [place] [address] Performed By: #### 2 4321-2, , 2776-02 ####[facility] LABORATORYCLIA [id number] [place] [id number] [place] XR ABDOMEN 1V SUPINEon 05-25 XR ABDOMEN 1V SUPINE Normal [facility] ANES POSTPROC EVALon 024 ANES POSTPROC EVAL Normal [facility] ANES PRE-OPon 05-25-2023 ANES PRE-OP Normal [facility] HISTORY PHYSICALon HISTORY PHYSICAL Normal [facility] NURSING PROGon 05-25-2023 NURSING PROG Normal [facility] NURSING PROG Normal [facility] Upper GI endoscopyon 024 Upper GI endoscopy Normal [facility] CNPNon 05-24-2023 CNPN Normal [facility] Record[facility] 2023 Home Health Records [id number] 0E#[id number] Normal [facility] Basic metabolic 2000 panelon 05-22-2023 Anion gap [Moles/Vol] 10 mmol/L Normal 9-18 [facility] Comment on above: Order Comment: Speci men Type: BLOOD SPECIMENOrdering Facility: [facility] Address: [address] [place] [address] Performed By: #### 2 4321-2, , 2776-02 ####[facility] LABORATORYCLIA [id number] [place] [id number] [place] Calcium [Mass/Vol] 8.9 mg/dL Normal 8.5-10.2 [facility] Comment on above: Order Comment: Speci men Type: BLOOD SPECIMENOrdering Facility: [facility] Address: [address] [place] [address] Performed By: #### 2 4321-2, , 2776-02 ####[facility] LABORATORYCLIA [id number] [place] [id number] [place] Chloride [Moles/Vol] 110 mmol/L High 97-105 [facility] Comment on above: Order Comment: Speci men Type: BLOOD SPECIMENOrdering Facility: [facility] Address: [address] [place] [address] Performed By: #### 2 4321-2, , 2776-02 ####[facility] LABORATORYCLIA [id number] [place] [id number] [place] CO2 [Moles/Vol] 23 mmol/L Normal 22-30 [facility] Comment on above: Order Comment: Speci men Type: BLOOD SPECIMENOrdering Facility: [facility] Address: [address] [place] [address] Performed By: #### 2 4321-2, , 2776-02 ####[facility] LABORATORYCLIA [id number] [place] [id number] [place] Creatinine [Mass/Vol] 0.73 mg/dL Normal 0.58-0.96 [facility] Comment on above: Order Comment: Speci men Type: BLOOD SPECIMENOrdering Facility: [facility] Address: [address] [place] [address] Performed By: #### 2 4321-2, , 2776-02 ####[facility] LABORATORYCLIA [id number] [place] [id number] [facility] [place] Creatinine and Glomerular filtration rate.predicted panel (S/P/Bld) 111 mL/min/1.73m??? Normal >=60 [facility] Comment on above: Order Comment: Speci men Type: BLOOD SPECIMENOrdering Facility: [facility] Address: [address] [place] [address] Result Comment: Jessica mated Glomerular Filtration Rate [...] 2776-02 ####[facility] LABORATORYCLIA [id number] [place] [address] [place] Glucose [Mass/Vol] 73 mg/dL Low 74-99 [facility] Comment on above: Order Comment: Speci men Type: BLOOD SPECIMENOrdering Facility: [facility] Address: [address] [place] [address] Result Comment: The [place] [employer] (ADA) provides guidance for cutoff [...] Standards of Medical Care in Diabetes 2016, [place] [employer]. Diabetes Care. 2016.39(Suppl 1). Performed By: #### 2 4321-2, , 2776-02 ####[facility] LABORATORYCLIA [id number] [place] [id number] [place] Potassium [Moles/Vol] 3.7 mmol/L Normal 3.7-5.1 [facility] Comment on above: Order Comment: Geraldo [facility] Type: BLOOD SPECIMENOrdering Facility: [facility] Address: [address] [place] [id number] Performed By: #### 2 4321-2, , 2776-02 ####[facility] LABORATORYCLIA [id number] [place] [address] [place] Sodium [Moles/Vol] 143 mmol/L Normal 136-144 [facility] Comment on above: Order Comment: Speci men Type: BLOOD SPECIMENOrdering Facility: [facility] Address: [address] [place] [address] Performed By: #### 2 4321-2, , 2776-02 ####OS[facility] LABORATORYCLIA [id number] [place] [id number] [place] Urea nitrogen [Mass/Vol] 6 mg/dL Low 7-21 [facility] Comment on above: Order Comment: Speci men Type: BLOOD SPECIMENOrdering Facility: [facility] Address: [facility][note 3] [place] [address] Performed By: #### 2 4321-2, , 2776-02 ####OS[facility]DO LABORATORYCLIA [id number] [place] [id number] [facility] [place] CASE MANAGEMon 05-22-2023 CASE MANAGEM Normal [facility] CNDSon 05-22-2023 CNDS Normal [facility] Magnesium SerPl-mCncon 05-21 Magnesium [Mass/Vol] 1.9 mg/dL Normal 1.7-2.3 [facility] Comment on above: Order Comment: Speci men Type: BLOOD SPECIMENOrdering Facility: [facility] Address: [facility][note 3] [place] [address] Performed By: #### 2 4321-2, , 2776-02 ####[facility] LABORATORYCLIA [id number] [place] [id number] [place] NUTRITIONon 05-22-2023 NUTRITION Normal [facility] Phosphate SerPl-mCncon 05-21 Phosphate [Mass/Vol] 4.3 mg/dL Normal 2.7-4.8 [facility] Comment on above: Order Comment: Speci men Type: BLOOD SPECIMENOrdering Facility: [facility] Address: [facility][note 3] [place] [address] Performed By: #### 2 4321-2, , 2776-02 ####OS[facility] LABORATORYCLIA [id number] [place] [id number] [place] Basic metabolic 2000 panelon 05-21-2023 Anion gap [Moles/Vol] 12 mmol/L Normal 9-18 [facility] Comment on above: Order Comment: Speci men Type: BLOOD SPECIMENOrdering Facility: [facility] Address: [address] [place] [address] Performed By: #### 2 4321-2, , 2776-02 ####[facility] LABORATORYCLIA [id number] [place] [address] [place] Calcium [Mass/Vol] 8.8 mg/dL Normal 8.5-10.2 [facility] Comment on above: Order Comment: Speci men Type: BLOOD SPECIMENOrdering Facility: [facility] Address: [address] [place] [address] Performed By: #### 2 4321-2, , 2776-02 ####[facility] LABORATORYCLIA [id number] [place] [address] [place] Chloride [Moles/Vol] 107 mmol/L High 97-105 [facility] Comment on above: Order Comment: Speci men Type: BLOOD SPECIMENOrdering Facility: [facility] Address: [address] [place] [address] Performed By: #### 2 4321-2, , 2776-02 ####[facility] LABORATORYCLIA [id number] [place] [id number] [place] CO2 [Moles/Vol] 19 mmol/L Low 22-30 [facility] Comment on above: Order Comment: Speci men Type: BLOOD SPECIMENOrdering Facility: [facility] Address: [address] [place] [address] Performed By: #### 2 4321-2, , 2776-02 ####[facility] LABORATORYCLIA [id number] [place] [id number] [place] Creatinine [Mass/Vol] 0.72 mg/dL Normal 0.58-0.96 [facility] Comment on above: Order Comment: Speci men Type: BLOOD SPECIMENOrdering Facility: [facility] Address: [address] [place] [address] Performed By: #### 2 4321-2, , 2776-02 ####[facility] LABORATORYCLIA [id number] [place] [id number] [place] Creatinine and Glomerular filtration rate.predicted panel (S/P/Bld) 113 mL/min/1.73m??? Normal >=60 [facility] Comment on above: Order Comment: Geraldo marrero Type: BLOOD SPECIMENOrdering Facility: [facility] Address: [address] [place] [address] Result Comment: Jessica mated Glomerular Filtration Rate [...] Performed By: #### 2 4321-2, , 2776-02 ####[facility] LABORATORYCLIA [id number] [place] [id number] [place] Glucose [Mass/Vol] 85 mg/dL Normal 74-99 [facility] Comment on above: Order Comment: Geraldo marrero Type: BLOOD SPECIMENOrdering Facility: [facility] Address: [address] [place] [address] Result Comment: The [place] Diabetes Association (ADA) provides guidance for cutoff [...] Standards of Medical Care in Diabetes 2016, [place] [employer]. Diabetes Care. 2016.39(Suppl 1). Performed By: #### 2 4321-2, , 2776-02 ####[facility] LABORATORYCLIA [id number] [place] [id number] [place] Potassium [Moles/Vol] 3.8 mmol/L Normal 3.7-5.1 [facility] Comment on above: Order Comment: Speci men Type: BLOOD SPECIMENOrdering Facility: [facility] Address: [address] [place] [address] Performed By: #### 2 4321-2, , 2776-02 ####[facility] LABORATORYCLIA [id number] [place] [id number] [place] Sodium [Moles/Vol] 138 mmol/L Normal 136-144 [facility] Comment on above: Order Comment: Speci men Type: BLOOD SPECIMENOrdering Facility: [facility] Address: [address] [place] [address] Performed By: #### 2 4321-2, , 2776-02 ####[facility] LABORATORYCLIA [id number] [place] [id number] [place] Urea nitrogen [Mass/Vol] 5 mg/dL Low 7-21 [facility] Comment on above: Order Comment: Speci men Type: BLOOD SPECIMENOrdering Facility: [facility] Address: [address] [place] [address] Performed By: #### 2 4321-2, , 2776-02 ####[facility] LABORATORYCLIA [id number] [place] [id number] [place] CASE MANAGEMon 05-21-2023 CASE MANAGEM Normal [facility] CASE MANAGEM Normal [facility] CASE MGT INIT ASSESon 2023 CASE MGT INIT ASS Normal [facility] Magnesium SerPl-mCncon 05-20 Magnesium [Mass/Vol] 1.9 mg/dL Normal 1.7-2.3 [facility] Comment on above: Order Comment: Speci men Type: BLOOD SPECIMENOrdering Facility: [facility] Address: [address] [place] [address] Performed By: #### 2 4321-2, , 2776-02 ####OS[facility] LABORATORYCLIA [id number] [place] [id number] [place] NURSING PROGon 05-21-2023 NURSING PROG Normal [facility] Phosphate SerPl-mCncon 05-20 Phosphate [Mass/Vol] 4.1 mg/dL Normal 2.7-4.8 [facility] Comment on above: Order Comment: Speci men Type: BLOOD SPECIMENOrdering Facility: [facility] Address: [address] [place] [address] Performed By: #### 2 4321-2, , 2776-02 ####[facility] LABORATORYCLIA [id number] [place] [id number] [place] ALLIED HEALTHon 05-20-2023 ALLIED HEALTH Normal [facility] ANES POSTPROC EVALon 024 ANES POSTPROC EVAL Normal [facility] ANES PRE-OPon 05-20-2023 ANES PRE-OP Normal [facility] Bacteria Ur Culton Bacteria identified Cx Nom (U) ORGANISM ID: 1 10,000 -<50,000 CFU/ml Normal urogenital annika Normal [facility] Comment on above: Performed By: #### 6 30-4 ####[facility] LABCLIA [id number] [facility] [place] [address] [place] Basic metabolic 2000 panelon 05-20-2023 Anion gap [Moles/Vol] 12 mmol/L Normal 9-18 [facility] Comment on above: Order Comment: Speci men Type: BLOOD SPECIMENOrdering Facility: [facility] Address: [address] [place] [address] Performed By: #### 2 4321-2, , 2776-02 ####[facility] LABORATORYCLIA [id number] [place] [id number] [place] Calcium [Mass/Vol] 8.8 mg/dL Normal 8.5-10.2 [facility] Comment on above: Order Comment: Speci men Type: BLOOD SPECIMENOrdering Facility: [facility] Address: [address] [place] [address] Performed By: #### 2 4321-2, , 2776-02 ####[facility] LABORATORYCLIA [id number] [place] [id number] [place] Chloride [Moles/Vol] 109 mmol/L High 97-105 [facility] Comment on above: Order Comment: Speci men Type: BLOOD SPECIMENOrdering Facility: [facility] Address: [address] [place] [address] Performed By: #### 2 4321-2, , 2776-02 ####[facility] LABORATORYCLIA [id number] [place] [id number] [place] CO2 [Moles/Vol] 21 mmol/L Low 22-30 [facility] Comment on above: Order Comment: Speci men Type: BLOOD SPECIMENOrdering Facility: [facility] Address: [address] [place] [address] Performed By: #### 2 4321-2, , 2776-02 ####[facility] LABORATORYCLIA [id number] [place] [id number] [place] Creatinine [Mass/Vol] 0.75 mg/dL Normal 0.58-0.96 [facility] Comment on above: Order Comment: Speci men Type: BLOOD SPECIMENOrdering Facility: [facility] Address: [address] [place] [address] Performed By: #### 2 4321-2, , 2776-02 ####[facility] LABORATORYCLIA [id number] [place] [id number] [facility] [place] Creatinine and Glomerular filtration rate.predicted panel (S/P/Bld) 107 mL/min/1.73m??? Normal >=60 [facility] Comment on above: Order Comment: Speci men Type: BLOOD SPECIMENOrdering Facility: [facility] Address: [address] [place] [address] Result Comment: Jessica mated Glomerular Filtration Rate [...] 2776-02 ####[facility] LABORATORYCLIA [id number] [place] [id number] [place] Glucose [Mass/Vol] 91 mg/dL Normal 74-99 [facility] Comment on above: Order Comment: Speci men Type: BLOOD SPECIMENOrdering Facility: [facility] Address: [address] [place] [address] Result Comment: The [place] [employer] (ADA) provides guidance for cutoff [...] Standards of Medical Care in Diabetes 2016, [place] [employer]. Diabetes Care. 2016.39(Suppl 1). Performed By: #### 2 4321-2, , 2776-02 ####[facility] LABORATORYCLIA [id number] [place] [id number] [place] Potassium [Moles/Vol] 4.1 mmol/L Normal 3.7-5.1 [facility] Comment on above: Order Comment: Geraldo [facility] Type: BLOOD SPECIMENOrdering Facility: [facility] Address: [address] [id number] Performed By: #### 2 4321-2, , 2776-02 ####[facility] LABORATORYCLIA [id number] [place] [id number] [place] Sodium [Moles/Vol] 142 mmol/L Normal 136-144 [facility] Comment on above: Order Comment: Speci men Type: BLOOD SPECIMENOrdering Facility: [facility] Address: [address] [place] [address] Performed By: #### 2 4321-2, , 2776-02 ####[facility] LABORATORYCLIA [id number] [place] [id number] [place] Urea nitrogen [Mass/Vol] 6 mg/dL Low 7-21 [facility] Comment on above: Order Comment: Speci men Type: BLOOD SPECIMENOrdering Facility: [facility] Address: [address] [place] [address] Performed By: #### 2 4321-2, , 2776-02 ####[facility] LABORATORYCLIA [id number] [address] [place] CBC panel Auto (Bld)on 05-19 Erythrocyte distribution width (RBC) [Ratio] 12.9 % Normal 11.5-15.0 [facility] Comment on above: Order Comment: Speci men Type: BLOOD SPECIMENOrdering Facility: [facility] Address: [address] [place] [address] Performed By: #### 5 8410-2 ####[facility] LABORATORYCLIA [id number] [place] [id number] [place] Hematocrit (Bld) [Volume fraction] 36.0 % Normal 36.0-46.0 [facility] Comment on above: Order Comment: Speci men Type: BLOOD SPECIMENOrdering Facility: [facility] Address: [address] [place] [address] Performed By: #### 5 8410-2 ####[facility] LABORATORYCLIA [id number] [place] [id number] [place] Hemoglobin (Bld) [Mass/Vol] 12.4 g/dL Normal 11.5-15.5 [facility] Comment on above: Order Comment: Speci men Type: BLOOD SPECIMENOrdering Facility: [facility] Address: [address] [place] [address] Performed By: #### 5 8410-2 ####[facility] LABORATORYCLIA [id number] [address] [place] [facility] MCH (RBC) [Entitic mass] 30.8 pg Normal 26.0-34.0 [facility] Comment on above: Order Comment: Speci men Type: BLOOD SPECIMENOrdering Facility: [facility] Address: [address] [place] [address] Performed By: #### 5 8410-2 ####[facility] LABORATORYCLIA [id number] [place] [address] [place] MCHC (RBC) [Mass/Vol] 34.4 g/dL Normal 30.5-36.0 [facility] Comment on above: Order Comment: Speci men Type: BLOOD SPECIMENOrdering Facility: [facility] Address: [address] [place] [address] Performed By: #### 5 8410-2 ####[facility] LABORATORYCLIA [id number] [address] [place] MCV (RBC) [Entitic vol] 89.6 fL Normal 80.0-100.0 [facility] Comment on above: Order Comment: Speci men Type: BLOOD SPECIMENOrdering Facility: [facility] Address: [address] [place] [address] Performed By: #### 5 8410-2 ####[facility] LABORATORYCLIA [id number] [address] [place] Nucleated RBC (Bld) [#/Vol] 10*3/uL Normal <0.01 [facility] Comment on above: Order Comment: Speci men Type: BLOOD SPECIMENOrdering Facility: [facility] Address: [address] [place] [address] Performed By: #### 5 8410-2 ####[facility] LABORATORYCLIA [id number] [address] [place] Platelet mean volume (Bld) [Entitic vol] 11.4 fL Normal 9.0-12.7 [facility] Comment on above: Order Comment: Speci men Type: BLOOD SPECIMENOrdering Facility: [facility] Address: [address] [place] [address] Performed By: #### 5 8410-2 ####[place] LABORATORYCLIA [id number] [place] [id number] [place] Platelets (Bld) [#/Vol] 176 10*3/uL Normal 150-400 [facility] Comment on above: Order Comment: Speci men Type: BLOOD SPECIMENOrdering Facility: [facility] Address: [address] [place] [address] Performed By: #### 5 8410-2 ####[facility] LABORATORYCLIA [id number] [place] [id number] [place] RBC (Bld) [#/Vol] 4.02 10*6/uL Normal 3.90-5.20 [facility] Comment on above: Order Comment: Speci men Type: BLOOD SPECIMENOrdering Facility: [facility] Address: [address] [place] [address] Performed By: #### 5 8410-2 ####[facility] LABORATORYCLIA [id number] [place] [id number] [place] WBC (Bld) [#/Vol] 2.51 10*3/uL Low 3.70-11.00 [facility] Comment on above: Order Comment: Speci men Type: BLOOD SPECIMENOrdering Facility: [facility] Address: [address] [place] [address] Performed By: #### 5 8410-2 ####[facility] LABORATORYCLIA [id number] [place] [id number] [place] HISTORY PHYSICALon HISTORY PHYSICAL Normal [facility] Magnesium SerPl-mCncon 05-19 Magnesium [Mass/Vol] 1.9 mg/dL Normal 1.7-2.3 [facility] Comment on above: Order Comment: Speci men Type: BLOOD SPECIMENOrdering Facility: [facility] Address: [address] [place] [address] Performed By: #### 2 4321-2, 82614-6, 2777-1 ####[facility] LABORATORYCLIA [id number] [place] [address] [place] NURSING PROGon 05-20-2023 NURSING PROG Normal [facility] NURSING PROG Normal [facility] NURSING PROG Normal [facility] NUTRITIONon 05-20-2023 NUTRITION Normal [facility] Phosphate SerPl-mCncon 05-19 Phosphate [Mass/Vol] 3.8 mg/dL Normal 2.7-4.8 [facility] Comment on above: Order Comment: Speci men Type: BLOOD SPECIMENOrdering Facility: [facility] Address: [address] [place] [address] Performed By: #### 2 4321-2, 63824-9, 2777-1 ####[facility] LABORATORYCLIA [id number] [place] [id number] [place] Upper GI endoscopyon 024 Upper GI endoscopy Normal [facility] XR ESOPHAGRAMon 05-20-2023 XR ESOPHAGRAM Normal [facility] Basic metabolic 2000 panelon 05-19-2023 Anion gap [Moles/Vol] 16 mmol/L Normal 9-18 [facility] Comment on above: Order Comment: Speci men Type: BLOOD SPECIMENOrdering Facility: [facility] Address: [address] [place] [address] Performed By: #### 2 4321-2 ####[facility] LABORATORYCLIA [id number] [place] [id number] [place] Calcium [Mass/Vol] 8.4 mg/dL Low 8.5-10.2 [facility] Comment on above: Order Comment: Speci men Type: BLOOD SPECIMENOrdering Facility: [facility] Address: [address] [place] [address] Performed By: #### 2 4321-2 ####[facility] LABORATORYCLIA [id number] [place] [id number] [place] Chloride [Moles/Vol] 104 mmol/L Normal 97-105 [facility] Comment on above: Order Comment: Speci men Type: BLOOD SPECIMENOrdering Facility: [facility] Address: [address] [place] [address] Performed By: #### 2 4321-2 ####[facility] LABORATORYCLIA [id number] [place] [id number] [place] CO2 [Moles/Vol] 15 mmol/L Low 22-30 [facility] Comment on above: Order Comment: Speci men Type: BLOOD SPECIMENOrdering Facility: [facility] Address: [address] [place] [address] Performed By: #### 2 4321-2 ####[facility] LABORATORYCLIA [id number] [place] [id number] [place] [facility] Creatinine [Mass/Vol] 0.71 mg/dL Normal 0.58-0.96 [facility] Comment on above: Order Comment: Speci men Type: BLOOD SPECIMENOrdering Facility: [facility] Address: [address] [place] [address] Performed By: #### 2 4321-2 ####[facility] LABORATORYCLIA [id number] [address] Creatinine and Glomerular filtration rate.predicted panel (S/P/Bld) 115 mL/min/1.73m??? Normal >=60 [facility] Comment on above: Order Comment: Speci men Type: BLOOD SPECIMENOrdering Facility: [facility] Address: [address] [place] [address] Result Comment: Jessica mated Glomerular Filtration Rate [...] actual GFR. Performed By: #### 2 4321-2 ####[facility] LABORATORYCLIA [id number] [place] [id number] [place] Glucose [Mass/Vol] 73 mg/dL Low 74-99 [facility] Comment on above: Order Comment: Speci men Type: BLOOD SPECIMENOrdering Facility: [facility] Address: [address] [place] [address] Result Comment: The [place] [employer] (ADA) provides guidance for cutoff [...] Standards of Medical Care in Diabetes 2016, [place] [employer]. Diabetes Care. 2016.39(Suppl 1). Performed By: #### 2 4321-2 ####[facility] LABORATORYCLIA [id number] [place] [address] [place] Potassium [Moles/Vol] 4.1 mmol/L Normal 3.7-5.1 [facility] Comment on above: Order Comment: Geraldo marrero Type: BLOOD SPECIMENOrdering Facility: [facility] Address: [address] [place] [address] Performed By: #### 2 4321-2 ####[facility] LABORATORYCLIA [id number] [place] [id number] [place] Sodium [Moles/Vol] 135 mmol/L Low 136-144 [facility] Comment on above: Order Comment: Geraldo marrero Type: BLOOD SPECIMENOrdering Facility: [facility] Address: [address] [place] [address] Performed By: #### 2 4321-2 ####[facility] LABORATORYCLIA [id number] [place] [id number] [place] Urea nitrogen [Mass/Vol] 8 mg/dL Normal 7-21 [facility] Comment on above: Order Comment: Geraldo marrero Type: BLOOD SPECIMENOrdering Facility: [facility] Address: [address] [place] [address] Performed By: #### 2 4321-2 ####[facility] LABORATORYCLIA [id number] [place] [id number] [place] CBC panel Auto (Bld)on 05-18 Erythrocyte distribution width (RBC) [Ratio] 12.6 % Normal 11.5-15.0 [facility] Comment on above: Order Comment: Speci men Type: BLOOD SPECIMENOrdering Facility: [facility] Address: [address] [place] [address] Performed By: #### 5 8410-2 ####[facility] LABORATORYCLIA [id number] [place] [address] [place] Hematocrit (Bld) [Volume fraction] 33.3 % Low 36.0-46.0 [facility] Comment on above: Order Comment: Speci men Type: BLOOD SPECIMENOrdering Facility: [facility] Address: [address] [place] [address] Performed By: #### 5 8410-2 ####[facility] LABORATORYCLIA [id number] [place] [address] [place] Hemoglobin (Bld) [Mass/Vol] 11.2 g/dL Low 11.5-15.5 [facility] Comment on above: Order Comment: Speci men Type: BLOOD SPECIMENOrdering Facility: [facility] Address: [address] [place] [address] Performed By: #### 5 8410-2 ####[facility] LABORATORYCLIA [id number] [place] [address] [place] MCH (RBC) [Entitic mass] 30.5 pg Normal 26.0-34.0 [facility] Comment on above: Order Comment: Speci men Type: BLOOD SPECIMENOrdering Facility: [facility] Address: [address] [place] [address] Performed By: #### 5 8410-2 ####[facility] LABORATORYCLIA [id number] [place] [id number] [place] MCHC (RBC) [Mass/Vol] 33.6 g/dL Normal 30.5-36.0 [facility] Comment on above: Order Comment: Speci men Type: BLOOD SPECIMENOrdering Facility: [facility] Address: [address] [place] [address] Performed By: #### 5 8410-2 ####[facility] LABORATORYCLIA [id number] [place] [id number] [place] MCV (RBC) [Entitic vol] 90.7 fL Normal 80.0-100.0 [facility] Comment on above: Order Comment: Speci men Type: BLOOD SPECIMENOrdering Facility: [facility] Address: [address] [place] [address] Performed By: #### 5 8410-2 ####[facility] LABORATORYCLIA [id number] [place] [address] [place] Nucleated RBC (Bld) [#/Vol] 10*3/uL Normal <0.01 [facility] Comment on above: Order Comment: Speci men Type: BLOOD SPECIMENOrdering Facility: [facility] Address: [address] [place] [address] Performed By: #### 5 8410-2 ####[facility] LABORATORYCLIA [id number] [address] [place] Platelet mean volume (Bld) [Entitic vol] 11.4 fL Normal 9.0-12.7 [facility] Comment on above: Order Comment: Speci men Type: BLOOD SPECIMENOrdering Facility: [facility] Address: [address] [place] [address] Performed By: #### 5 8410-2 ####[facility] LABORATORYCLIA [id number] [address] [place] Platelets (Bld) [#/Vol] 150 10*3/uL Normal 150-400 [facility] Comment on above: Order Comment: Speci men Type: BLOOD SPECIMENOrdering Facility: [facility] Address: [address] [place] [address] Performed By: #### 5 8410-2 ####[facility] LABORATORYCLIA [id number] [place] [id number] [place] RBC (Bld) [#/Vol] 3.67 10*6/uL Low 3.90-5.20 [facility] Comment on above: Order Comment: Speci men Type: BLOOD SPECIMENOrdering Facility: [facility] Address: [address] [place] [address] Performed By: #### 5 8410-2 ####[facility] LABORATORYCLIA [id number] [place] [address] [place] WBC (Bld) [#/Vol] 3.57 10*3/uL Low 3.70-11.00 [facility] Comment on above: Order Comment: Speci men Type: BLOOD SPECIMENOrdering Facility: [facility] Address: [address] [place] [address] Performed By: #### 5 8410-2 ####[facility] LABORATORYCLIA [id number] [place] [address] [place] NURSING PROGon 05-19-2023 NURSING PROG Normal [facility] NURSING PROG Normal [facility] NURSING PROG Normal [facility] NUTRITIONon 05-19-2023 NUTRITION Normal [facility] Urinalysis complete panel (U )on 05-19-2023 Bacteria LM.HPF (Urine sed) [#/Area] Few Abnormal None Seen [facility] Comment on above: Order Comment: Speci men Type: URINE SPECIMENOrdering Facility: [facility] Address: [address] [place] [address] Performed By: #### 2 4356-8 ####[facility] LABORATORYCLIA [id number] [place] [address] [place] Bilirubin Ql (U) Negative Normal Negative [facility] Comment on above: Order Comment: Speci men Type: URINE SPECIMENOrdering Facility: [facility] Address: [address] [place] [address] Performed By: #### 2 4356-8 ####[facility] LABORATORYCLIA [id number] [place] [id number] [place] Clarity (Unsp spec) Turbid Abnormal Clear [facility] Comment on above: Order Comment: Speci men Type: URINE SPECIMENOrdering Facility: [facility] Address: [address] [place] [address] Performed By: #### 2 4356-8 ####[facility] LABORATORYCLIA [id number] [place] [address] [place] Color (U) Yellow Normal Yellow [facility] Comment on above: Order Comment: Speci men Type: URINE SPECIMENOrdering Facility: [facility] Address: [address] [place] [address] Performed By: #### 2 4356-8 ####[facility] LABORATORYCLIA [id number] [address] [place] Epithelial cells LM.HPF (Urine sed) [#/Area] Moderate Normal [facility] Comment on above: Order Comment: Speci men Type: URINE SPECIMENOrdering Facility: [facility] Address: [address] [place] [address] Performed By: #### 2 4356-8 ####[facility] LABORATORYCLIA [id number] [address] [place] [facility] Glucose Test strip (U) [Mass/Vol] Negative Normal Trace, Negative [facility] Comment on above: Order Comment: Speci men Type: URINE SPECIMENOrdering Facility: [facility] Address: [address] [place] [address] Performed By: #### 2 4356-8 ####[facility] LABORATORYCLIA [id number] [place] [address] [place] Hemoglobin Ql (U) Trace Normal Negative, Trace Fa [facility] Comment on above: Order Comment: Speci men Type: URINE SPECIMENOrdering Facility: [facility] Address: [address] [place] [address] Performed By: #### 2 4356-8 ####[facility] LABORATORYCLIA [id number] [place] [address] [place] Ketones Ql (U) 2+ Abnormal Negative, Trace [facility] Comment on above: Order Comment: Speci men Type: URINE SPECIMENOrdering Facility: [facility] Address: [address] [place] [address] Performed By: #### 2 4356-8 ####[facility] LABORATORYCLIA [id number] [place] [address] [place] Leukocyte esterase Test strip Ql (U) 500 Patito/uL Abnormal Negative, 25 Patito/uL [facility] Comment on above: Order Comment: Speci men Type: URINE SPECIMENOrdering Facility: [facility] Address: [address] [place] [address] Performed By: #### 2 4356-8 ####[facility] LABORATORYCLIA [id number] [place] [address] [place] Nitrite Ql (U) Negative Normal Negative [facility] Comment on above: Order Comment: Speci men Type: URINE SPECIMENOrdering Facility: [facility] Address: [address] [place] [address] Performed By: #### 2 4356-8 ####[facility] LABORATORYCLIA [id number] [place] [address] [place] pH (U) 6.0 [pH] Normal 5.0-8.0 [facility] Comment on above: Order Comment: Speci men Type: URINE SPECIMENOrdering Facility: [facility] Address: [address] [place] [address] Performed By: #### 2 4356-8 ####[facility] LABORATORYCLIA [id number] [place] [address] [place] Protein (U) [Mass/Vol] Negative Normal Trace, Negative [facility] Comment on above: Order Comment: Speci men Type: URINE SPECIMENOrdering Facility: [facility] Address: [address] [place] [address] Performed By: #### 2 4356-8 ####[facility] LABORATORYCLIA [id number] [place] [address] [place] RBC LM.HPF (Urine sed) [#/Area] /[HPF] Abnormal 0-3 /HPF [facility] Comment on above: Order Comment: Speci men Type: URINE SPECIMENOrdering Facility: [facility] Address: [address] [place] [address] Performed By: #### 2 4356-8 ####[facility] LABORATORYCLIA [id number] [place] [address] [place] Specific gravity (U) [Rel density] 1.012 Normal 1.005-1.030 [facility] Comment on above: Order Comment: Speci men Type: URINE SPECIMENOrdering Facility: [facility] Address: [address] [place] [address] Performed By: #### 2 4356-8 ####[facility] LABORATORYCLIA [id number] [place] [id number] [place] Urobilinogen Ql (U) Normal Normal Normal [facility] [place] Comment on above: Order Comment: Speci men Type: URINE SPECIMENOrdering Facility: [facility] Address: [address] [place] [address] Performed By: #### 2 4356-8 ####[facility] CENTERCLIA [id number] [address] [place] WBC LM.HPF (Urine sed) [#/Area] /[HPF] Abnormal 0-5 /HPF [facility] Comment on above: Order Comment: Speci men Type: URINE SPECIMENOrdering Facility: [facility] Address: [address] [place] [address] Performed By: #### 2 4356-8 ####[facility] LABORATORYCLIA [id number] [address] [place] [facility] .Interpretation:on HCV Ab IA Ql Comment Invalid Interpretation Code [facility] Comment on above: Result Comment: Not infected with HCV unless early or acute infection issuspected (which may be delayed in an immunocompromisedindividual), or other evidence exists to indicate HCV infection.Performed at: [facility] [id number] [place], [place] [id number] PhD Cami Neri Performed By: #### 1 7768977, 2087377, 0990295315, 2109916, [id number], 582448906, 4881065, 0513742, 32970510 ####[facility] [address] [place] [address] 25(OH)D3 Rhonda 2023 25-hydroxyvitamin D3 [Mass/Vol] 36.1 ng/mL Normal 31.0-80.0 [facility] Comment on above: Order Comment: Speci men Type: BLOOD SPECIMENOrdering Facility: [facility] Address: [address] [place] [address] Performed By: #### 1 989-3 ####[facility] LABCLIA [id number] [facility] [id number] [address] [place] Acute Hepatitis A B C Panelo n 05-18-2023 HAV IgM IA Ql Negative Invalid Interpretation Code Negative [facility] Comment on above: Performed By: #### 1 3509160, 0590701, [id number], 4379885, 3584325165, 767704555, 1069749, 1192793, 78415060 ####[facility] [address] [place] [address] HBV core IgM IA Ql Negative Invalid Interpretation Code Negative [facility] Comment on above: Performed By: #### 1 7134746, 1872709, 8803073724, 4695951, 6335202610, 976557134, 2759528, 1786374, 32794646 ####[facility] [address] [place] [address] HBV surface Ag IA Ql Negative Invalid Interpretation Code Negative [facility] Comment on above: Performed By: #### 1 9737288, 5776665, 9029643703, 6042856, 4089159249, 180163786, 1686136, 5553151, 54770668 ####[facility] [address] [place] [address] HCV IgG IA Ql Non-Reactive Invalid Interpretation Code Non Reactive [facility] Comment on above: Result Comment: Perf ormed at: [facility] [id number] [place], [place] [id number] PhD Cami Neri Performed By: #### 1 3819380, 1115090, 8567377501, 4518226, 1803290349, 246412509, 7267987, 7701578, 24999895 ####[facility] [address] [place] [address] CBC W Auto Differential pane l (Bld)on 05-18-2023 Basophils (Bld) [#/Vol] 0.03 10*3/uL Normal <0.11 [facility] Comment on above: Order Comment: Speci men Type: BLOOD SPECIMENOrdering Facility: [facility] Address: [address] [place] [address] Performed By: #### 5 7021-8 ####[facility] LABORATORYCLIA [id number] [place] [id number] [place] Basophils/100 WBC (Bld) 0.6 % Normal [facility] Comment on above: Order Comment: Speci men Type: BLOOD SPECIMENOrdering Facility: [facility] Address: [address] [place] [address] Performed By: #### 5 7021-8 ####[facility] LABORATORYCLIA [id number] [place] [address] [place] Differential cell count method Nom (Bld) Auto Normal [facility] Comment on above: Order Comment: Speci men Type: BLOOD SPECIMENOrdering Facility: [facility] Address: [address] [place] [address] Performed By: #### 5 7021-8 ####[facility] LABORATORYCLIA [id number] [place] [address] [place] Eosinophils (Bld) [#/Vol] 0.06 10*3/uL Normal <0.46 [facility] Comment on above: Order Comment: Speci men Type: BLOOD SPECIMENOrdering Facility: [facility] Address: [address] [place] [address] Performed By: #### 5 7021-8 ####[facility] LABORATORYCLIA [id number] [place] [id number] [place] Eosinophils/100 WBC (Bld) 1.3 % Normal [facility] Comment on above: Order Comment: Speci men Type: BLOOD SPECIMENOrdering Facility: [facility] Address: [address] [place] [address] Performed By: #### 5 7021-8 ####[facility] LABORATORYCLIA [id number] [place] [address] [place] Erythrocyte distribution width (RBC) [Ratio] 13.1 % Normal 11.5-15.0 [facility] Comment on above: Order Comment: Speci men Type: BLOOD SPECIMENOrdering Facility: [facility] Address: [address] [place] [address] Performed By: #### 5 7021-8 ####[facility] LABORATORYCLIA [id number] [place] [address] [place] Hematocrit (Bld) [Volume fraction] 43.5 % Normal 36.0-46.0 [facility] Comment on above: Order Comment: Speci men Type: BLOOD SPECIMENOrdering Facility: [facility] Address: [address] [place] [address] Performed By: #### 5 7021-8 ####[facility] LABORATORYCLIA [id number] [place] [address] [place] Hemoglobin (Bld) [Mass/Vol] 14.8 g/dL Normal 11.5-15.5 [facility] Comment on above: Order Comment: Speci men Type: BLOOD SPECIMENOrdering Facility: [facility] Address: [address] [place] [address] Performed By: #### 5 7021-8 ####[facility] LABORATORYCLIA [id number] [place] [address] [place] Immature granulocytes (Bld) [#/Vol] 10*3/uL Normal <0.10 [facility] Comment on above: Order Comment: Speci men Type: BLOOD SPECIMENOrdering Facility: [facility] Address: [address] [place] [address] Performed By: #### 5 7021-8 ####[facility] LABORATORYCLIA [id number] [address] [place] Immature granulocytes/100 WBC (Bld) 0.2 % Normal [facility] Comment on above: Order Comment: Speci men Type: BLOOD SPECIMENOrdering Facility: [facility] Address: [address] [place] [address] Performed By: #### 5 7021-8 ####[facility] LABORATORYCLIA [id number] [place] [address] [place] Lymphocytes (Bld) [#/Vol] 1.27 10*3/uL Normal 1.00-4.00 [facility] Comment on above: Order Comment: Speci men Type: BLOOD SPECIMENOrdering Facility: [facility] Address: [address] [place] [address] Performed By: #### 5 7021-8 ####[facility] LABORATORYCLIA [id number] [address] [place] Lymphocytes/100 WBC (Bld) 26.5 % Normal [facility] Comment on above: Order Comment: Speci men Type: BLOOD SPECIMENOrdering Facility: [facility] Address: [address] [place] [address] Performed By: #### 5 7021-8 ####[facility] LABORATORYCLIA [id number] [place] [address] [place] MCH (RBC) [Entitic mass] 30.4 pg Normal 26.0-34.0 [facility] Comment on above: Order Comment: Speci men Type: BLOOD SPECIMENOrdering Facility: [facility] Address: [address] [place] [address] Performed By: #### 5 7021-8 ####[facility] LABORATORYCLIA [id number] [address] [place] MCHC (RBC) [Mass/Vol] 34.0 g/dL Normal 30.5-36.0 [facility] Comment on above: Order Comment: Speci men Type: BLOOD SPECIMENOrdering Facility: [facility] Address: [address] [place] [address] Performed By: #### 5 7021-8 ####[facility] LABORATORYCLIA [id number] [address] [place] MCV (RBC) [Entitic vol] 89.3 fL Normal 80.0-100.0 [facility] Comment on above: Order Comment: Speci men Type: BLOOD SPECIMENOrdering Facility: [facility] Address: [address] [place] [address] Performed By: #### 5 7021-8 ####[facility] LABORATORYCLIA [id number] [place] [id number] [place] Monocytes (Bld) [#/Vol] 0.26 10*3/uL Normal <0.87 [facility] Comment on above: Order Comment: Speci men Type: BLOOD SPECIMENOrdering Facility: [facility] Address: [address] [place] [address] Performed By: #### 5 7021-8 ####[facility] LABORATORYCLIA [id number] [place] [id number] [place] Monocytes/100 WBC (Bld) 5.4 % Normal [facility] Comment on above: Order Comment: Speci men Type: BLOOD SPECIMENOrdering Facility: [facility] Address: [address] [place] [address] Performed By: #### 5 7021-8 ####[facility] LABORATORYCLIA [id number] [place] [address] [place] Neutrophils (Bld) [#/Vol] 3.16 10*3/uL Normal 1.45-7.50 [facility] Comment on above: Order Comment: Speci men Type: BLOOD SPECIMENOrdering Facility: [facility] Address: [address] [place] [address] Performed By: #### 5 7021-8 ####[facility] LABORATORYCLIA [id number] [place] [address] [place] Neutrophils/100 WBC (Bld) 66.0 % Normal [facility] Comment on above: Order Comment: Speci men Type: BLOOD SPECIMENOrdering Facility: [facility] Address: [address] [place] [address] Performed By: #### 5 7021-8 ####[facility] LABORATORYCLIA [id number] [place] [id number] [place] Nucleated RBC (Bld) [#/Vol] 10*3/uL Normal <0.01 [facility] Comment on above: Order Comment: Speci men Type: BLOOD SPECIMENOrdering Facility: [facility] Address: [address] [place] [address] Performed By: #### 5 7021-8 ####[facility] LABORATORYCLIA [id number] [place] [id number] [place] Nucleated RBC/100 WBC (Bld) [Ratio] 0.0 /100 WBC Normal [facility] Comment on above: Order Comment: Speci men Type: BLOOD SPECIMENOrdering Facility: [facility] Address: [address] [place] [address] Performed By: #### 5 7021-8 ####[facility] LABORATORYCLIA [id number] [place] [id number] [place] Platelet mean volume (Bld) [Entitic vol] 11.8 fL Normal 9.0-12.7 [facility] Comment on above: Order Comment: Speci men Type: BLOOD SPECIMENOrdering Facility: [facility] Address: [address] [place] [address] Performed By: #### 5 7021-8 ####[facility] LABORATORYCLIA [id number] [place] [id number] [place] Platelets (Bld) [#/Vol] 226 10*3/uL Normal 150-400 [facility] Comment on above: Order Comment: Speci men Type: BLOOD SPECIMENOrdering Facility: [facility] Address: [address] [place] [address] Performed By: #### 5 7021-8 ####[facility] LABORATORYCLIA [id number] [place] [id number] [place] RBC (Bld) [#/Vol] 4.87 10*6/uL Normal 3.90-5.20 [facility] Comment on above: Order Comment: Speci men Type: BLOOD SPECIMENOrdering Facility: [facility] Address: [address] [place] [address] Performed By: #### 5 7021-8 ####[facility] LABORATORYCLIA [id number] [place] [id number] [place] WBC (Bld) [#/Vol] 4.79 10*3/uL Normal 3.70-11.00 [facility] Comment on above: Order Comment: Speci men Type: BLOOD SPECIMENOrdering Facility: [facility] Address: [address] [place] [address] Performed By: #### 5 7021-8 ####[facility] LABORATORYCLIA [id number] [place] [address] [place] CNPNon 05-18-2023 CNPN Normal [facility] 05-18-2023 CONSULT Normal [facility] COPPER BLOODon 05-18-2023 Copper [Mass/Vol] 91 ug/dL Normal 80-155 [facility] Comment on above: Order Comment: Speci men Type: BLOOD SPECIMENOrdering Facility: [facility] Address: [address] [place] [address] Result Comment: This test was developed and its performance characteristics determined by [facility] Pathology and Laboratory Medicine [place] ([facility]). It has not been cleared or approved by the FDA. RT-[facility] is regulated under CLIA as qualified to perform high-complexity testing. This test is used for clinical purposes. It should not be regarded as investigational or for research. Performed By: #### C OPPER ####[facility] LABCLIA [id number] [place] [address] [place] Comprehensive metabolic 2000 panelon 05-18-2023 Albumin [Mass/Vol] 4.7 g/dL Normal 3.9-4.9 [facility] Comment on above: Order Comment: Speci men Type: BLOOD SPECIMENOrdering Facility: [facility] Address: [address] [place] [address] Performed By: #### 2 4323-8, 3040-3, 70123-4 ####[facility] LABORATORYCLIA [id number] [place] [address] [place] ALP [Catalytic activity/Vol] 76 U/L Normal 34-123 [facility] Comment on above: Order Comment: Speci men Type: BLOOD SPECIMENOrdering Facility: [facility] Address: [address] [place] [address] Performed By: #### 2 4323-8, 3040-3, ####[facility] LABORATORYCLIA [id number] [place] [address] [place] ALT [Catalytic activity/Vol] 19 U/L Normal 7-38 [facility] Comment on above: Order Comment: Speci men Type: BLOOD SPECIMENOrdering Facility: [facility] Address: [address] [place] [address] Performed By: #### 2 4323-8, 0-3, ####[facility] LABORATORYCLIA [id number] [place] [address] [place] Anion gap [Moles/Vol] 14 mmol/L Normal 9-18 [facility] Comment on above: Order Comment: Speci men Type: BLOOD SPECIMENOrdering Facility: [facility] Address: [address] [place] [address] Performed By: #### 2 4323-8, 3, ####[facility] LABORATORYCLIA [id number] [place] [id number] [place] AST [Catalytic activity/Vol] 42 U/L High 13-35 [facility] Comment on above: Order Comment: Speci men Type: BLOOD SPECIMENOrdering Facility: [facility] Address: [address] [place] [address] Performed By: #### 2 4323-8, 03, ####[facility] LABORATORYCLIA [id number] [place] [id number] [place] Bilirubin [Mass/Vol] 0.4 mg/dL Normal 0.2-1.3 [facility] Comment on above: Order Comment: Speci men Type: BLOOD SPECIMENOrdering Facility: [facility] Address: [address] [place] [address] Performed By: #### 2 4323-8, 0-3, ####[facility] LABORATORYCLIA [id number] [place] [address] [place] Calcium [Mass/Vol] 9.2 mg/dL Normal 8.5-10.2 [facility] Comment on above: Order Comment: Speci men Type: BLOOD SPECIMENOrdering Facility: [facility] Address: [address] [place] [address] Performed By: #### 2 4323-8, 3040-3, ####[facility] LABORATORYCLIA [id number] [place] [address] [place] Chloride [Moles/Vol] 106 mmol/L High 97-105 [facility] Comment on above: Order Comment: Speci men Type: BLOOD SPECIMENOrdering Facility: [facility] Address: [address] [place] [address] Performed By: #### 2 4323-8, 3, ####[facility] LABORATORYCLIA [id number] [place] [id number] [place] CO2 [Moles/Vol] 21 mmol/L Low 22-30 [facility] Comment on above: Order Comment: Speci men Type: BLOOD SPECIMENOrdering Facility: [facility] Address: [address] [place] [address] Performed By: #### 2 4323-8, 3, ####[facility] LABORATORYCLIA [id number] [place] [id number] [place] Creatinine [Mass/Vol] 0.82 mg/dL Normal 0.58-0.96 [facility] Comment on above: Order Comment: Speci men Type: BLOOD SPECIMENOrdering Facility: [facility] Address: [address] [place] [address] Performed By: #### 2 4323-8, 03, ####[facility] LABORATORYCLIA [id number] [place] [id number] [place] Creatinine and Glomerular filtration rate.predicted panel (S/P/Bld) 96 mL/min/1.73m??? Normal >=60 [facility] Comment on above: Order Comment: Speci men Type: BLOOD SPECIMENOrdering Facility: [facility] Address: [address] [place] [address] Result Comment: Jessica mated Glomerular Filtration Rate [...] GFR. Performed By: #### 2 4323-8, 3039-3, ####[facility] LABORATORYCLIA [id number] [place] [id number] [place] Glucose [Mass/Vol] 79 mg/dL Normal 74-99 [facility] Comment on above: Order Comment: Geraldo marrero Type: BLOOD SPECIMENOrdering Facility: [facility] Address: [address] [place] [address] Result Comment: The [place] [employer] (ADA) provides guidance for cutoff [...] Standards of Medical Care in Diabetes 2016, [place] [employer]. Diabetes Care. 2016.39(Suppl 1). Performed By: #### 2 4323-8, 3039-3, ####[facility] LABORATORYCLIA [id number] [place] [id number] [place] Potassium [Moles/Vol] 4.3 mmol/L Normal 3.7-5.1 [facility] Comment on above: Order Comment: Geraldo marrero Type: BLOOD SPECIMENOrdering Facility: [facility] Address: [address] [place] [address] Performed By: #### 2 4323-8, 3040-3, ####[facility] LABORATORYCLIA [id number] [place] [id number] [place] Protein [Mass/Vol] 7.4 g/dL Normal 6.3-8.0 [facility] Comment on above: Order Comment: Speci men Type: BLOOD SPECIMENOrdering Facility: [facility] Address: [address] [place] [address] Performed By: #### 2 4323-8, 3040-3, 62601-7 ####[facility] LABORATORYCLIA [id number] [place] [id number] [place] Sodium [Moles/Vol] 141 mmol/L Normal 136-144 [facility] Comment on above: Order Comment: Speci men Type: BLOOD SPECIMENOrdering Facility: [facility] Address: [address] [place] [address] Performed By: #### 2 4323-8, 0-3, ####[facility] LABORATORYCLIA [id number] [place] [id number] [place] Urea nitrogen [Mass/Vol] 7 mg/dL Normal 7-21 [facility] Comment on above: Order Comment: Speci men Type: BLOOD SPECIMENOrdering Facility: [facility] Address: [address] [place] [address] Performed By: #### 2 4323-8, 0-3, ####[facility] LABORATORYCLIA [id number] [place] [id number] [place] Copper Lvlon 05-18-2023 Copper [Mass/Vol] 90 microgram/dL Invalid Interpretation Code 80-158 [facility] Comment on above: Result Comment: This test was developed and its performance characteristicsdetermined by [facility]. It has not been cleared or approvedby the Food and Drug Administration.Detection Limit = 5Performed at: [facility] [address] [id number] [place] Jhonathan Dai Performed By: #### 1 [id number], 7822981, [id number], 4872908, [id number], [id number], 9099253, 5689525, 55016430 ####[facility] [id number] [place] [address] ED PROV NOTEon 05-18-2023 ED PROV NOTE Normal [facility] Folate SerPl-mCncon 05-18-19 24 Folate [Mass/Vol] 10.3 ng/mL Normal >4.7 [facility] Comment on above: Order Comment: Speci men Type: BLOOD SPECIMENOrdering Facility: [facility] Address: [address] [place] [address] Performed By: #### 1 4338-8, 4-6, 13700-4, 2131-10, 2283-09 ####[facility] LABCLIA [id number] [address] [address] [place] HIV Screen 4th Generation wR fxon 05-18-2023 HIV 1+2 Ab+HIV1 p24 Ag IA Ql Non-Reactive Invalid Interpretation Code Non Reactive [facility] Comment on above: Result Comment: HIV NegativeHIV-1/HIV-2 antibodies and HIV-1 p24 antigen were NOT detected.There is no laboratory evidence of HIV infection.Performed at: Lab[address] [id number] PhD Cami Neri Performed By: #### 1 0871568, 9698714, [id number], 6868475, [id number], 152587073, 7844183, 9939700, 97447007 ####[facility] [address] [place] [address] Iron and Iron binding capaci ty panelon 05-18-2023 Iron [Mass/Vol] 81 ug/dL Normal 41-186 [facility] Comment on above: Order Comment: Speci men Type: BLOOD SPECIMENOrdering Facility: [facility] Address: [address] [place] [address] Performed By: #### 1 4338-8, 4-6, 29285-4, 9, 2283-09 ####[facility] LABCLIA [id number] [address] [address] [place] Iron binding capacity [Mass/Vol] 292 ug/dL Normal 232-386 [facility] Comment on above: Order Comment: Speci men Type: BLOOD SPECIMENOrdering Facility: [facility] Address: [address] [place] [address] Performed By: #### 1 4338-8, 3034-6, 94430-6, 2131-9, 2283-8 ####[facility] LABCLIA [id number] [place] [address] [place] Iron/TIBC [Molar ratio] 27.7 % Normal 15.0-57.0 [facility] Comment on above: Order Comment: Speci men Type: BLOOD SPECIMENOrdering Facility: [facility] Address: [address] [place] [address] Performed By: #### 1 4338-8, 3034-6, 21627-7, 2131-9, 8 ####[facility] LABCLIA [id number] [address] [place] Lipase SerPl-cCncon 05-18-19 24 Lipase [Catalytic activity/Vol] 37 U/L Normal 16-61 [facility] Comment on above: Order Comment: Speci men Type: BLOOD SPECIMENOrdering Facility: [facility] Address: [address] [place] [address] Performed By: #### 2 4323-8, 3040-3, ####[facility] LABORATORYCLIA [id number] [place] [id number] [place] Magnesium SerPl-mCncon 05-17 Magnesium [Mass/Vol] 2.1 mg/dL Normal 1.7-2.3 [facility] Comment on above: Order Comment: Speci men Type: BLOOD SPECIMENOrdering Facility: [facility] Address: [address] [place] [address] Performed By: #### 2 4323-8, 3040-3, 95077-2 ####[facility] LABORATORYCLIA [id number] [place] [id number] [place] NURSING PROGon 05-18-2023 NURSING PROG Normal [facility] Prealb SerPl-mCncon 05-18-19 24 Prealbumin [Mass/Vol] 13 mg/dL Low 17-36 [facility] Comment on above: Order Comment: Speci men Type: BLOOD SPECIMENOrdering Facility: [facility] Address: [address] [place] [address] Performed By: #### 1 4338-8, 3034-6, 89007-8, 2131-9, 2283-8 ####[facility] LABCLIA [id number] [address] [address] [place] Transferrin SerPl-mCncon Transferrin [Mass/Vol] 239 mg/dL Normal 200-360 [facility] Comment on above: Order Comment: Speci men Type: BLOOD SPECIMENOrdering Facility: [facility] Address: [address] [place] [address] Performed By: #### 1 4338-8, 3034-6, 45376-2, 2131-9, 8 ####[facility] LABCLIA [id number] [address] [address] [place] VITAMIN B1 PLASMAon 05-18-19 24 VITAMIN B1, PLASMA 5 nmol/L Normal 4-15 [facility] Comment on above: Order Comment: Speci men Type: BLOOD SPECIMENOrdering Facility: [facility] Address: [address] [place] [address] Result Comment: INTE RPRETIVE DATA: Vitamin B1, PlasmaThiamine (vitamin B1) is reported. However, thiamine diphosphate(TDP), the biologically active form of thiamine, is not found inmeasurable concentrations in plasma, and is best determined inwhole blood specimens. Plasma thiamine concentration reflectsrecent intake rather than body stores.This test was developed and its performance characteristicsdetermined by [facility]. It has not been cleared orapproved by the [place] Food and Drug Administration. This test wasperformed in a CLIA certified laboratory and is intended forclinical purposes.Performed By: [facility] [place] [id number] Director: Kirt Murphy MD, PhDCLIA Number: [id number] Performed By: #### P VITB1 ####[facility] [id number] [place] [address] VITAMIN B6/PYRIDOXINon 05-17 VITAMIN B6 39.1 nmol/L Normal 20.0-125.0 [facility] Comment on above: Order Comment: Speci men Type: BLOOD SPECIMENOrdering Facility: [facility] Address: [address] [place] [address] Result Comment: INTE RPRETIVE INFORMATION: Vitamin B6 (Pyridoxal 5-Phosphate)Pyridoxal 5'-phosphate measured in a specimen collected followingan 8-hour or overnight fast accurately indicates vitamin Z0spobthxvcjo status. Non-fasting specimen concentration reflectsrecent vitamin intake.This test was developed and its performance characteristicsdetermined by [facility]. It has not been cleared orapproved by the [place] Food and Drug Administration. This test wasperformed in a CLIA certified laboratory and is intended forclinical purposes.Performed By: [facility] [place], [place] [address]Zhsjyodsrq Director: Kirt Murphy MD, PhDCLIA Number: [id number] Performed By: #### V ITB6 ####[facility] [id number] [place] [address] Vit A SerPl-mCncon 4 Retinol [Mass/Vol] 0.17 mg/L Low 0.30-1.20 [facility] Comment on above: Order Comment: Speci men Type: BLOOD SPECIMENOrdering Facility: [facility] Address: [address] [place] [address] Result Comment: This test was developed and its performance characteristics determined by [facility]'s [facility] Pathology and Laboratory Medicine [place] ([facility]). It has not been cleared or approved by the FDA. -PLVT is regulated under CLIA as qualified to perform high-complexity testing. This test is used for clinical purposes. It should not be regarded as investigational or for research. Performed By: #### 2 923-1 ####[facility] LABCLIA [id number] [address] [address] [place] Vit B12 SerPl-mCncon 024 Cobalamin (Vitamin B12) [Mass/Vol] 1155 pg/mL Normal 232-1245 [facility] [facility] Comment on above: Order Comment: Speci men Type: BLOOD SPECIMENOrdering Facility: [facility] Address: [address] [place], [place] [address] Performed By: #### 1 4338-8, 3034-6, 49147-5, 2132-9, 2284-8 ####[facility] LABCLIA [id number] [address] [address] [place] ZINC, WHOLE BLOODon 05-18-19 24 ZINC, WHOLE BLOOD 670.6 ug/dL Normal 440.0-860.0 [facility] Comment on above: Order Comment: Speci men Type: BLOOD SPECIMENOrdering Facility: [facility] Address: [address] [place], [place] [address] Result Comment: INTE RPRETIVE DATA: Zinc Quantitative, [...] was developed and its performance characteristicsdetermined by [facility]. It has not been cleared orapproved by the [place] Food and Drug Administration. This test wasperformed in a CLIA certified laboratory and is intended forclinical purposes.Performed By: [facility] [place], [place] [address]Lkxttmfqws Director: Kirt Murphy MD, PhDCLIA Number: [id number] Performed By: #### Z INCWB ####[facility] LABORATORIESCLIA [id number] [place] [address] CBC w/ Auto Diffon 4 Basophils/100 WBC (Bld) 0.7 % Normal 0.0-2.0 [facility] Comment on above: Performed By: #### 2 433831, 4845774, 5258124, 72323277 ####[address] [address] Basophils/Leukocyte s Auto (Bld) [Pure # fraction] 0.0 E9/L Normal 0.0-0.2 [facility] Comment on above: Performed By: #### 2 800564, 1526239, 2265350, 45130053 ####[address] [address] Eosinophils (Bld) [#/Vol] 0.1 E9/L Normal 0.0-0.5 [facility] Comment on above: Performed By: #### 2 554868, 7951836, 2111060, 82600309 ####[address] [address] Eosinophils/100 WBC (Bld) 1.9 % Normal 0.0-8.0 [facility] Comment on above: Performed By: #### 2 257477, 8358895, 7735886, 76109089 ####[address] [address] Erythrocyte distribution width (RBC) [Ratio] 14.1 % Normal 10.9-14.2 [facility] Comment on above: Performed By: #### 2 475765, 3263559, 0811323, 70416523 ####[address] [address] Hematocrit (Bld) [Volume fraction] 41.1 % Normal 34.0-46.0 [facility] Comment on above: Performed By: #### 2 576317, 3335097, 7596048, 97403532 ####[address] [address] Hemoglobin (Bld) [Mass/Vol] 13.7 g/dL Normal 12.0-16.0 [facility] Comment on above: Performed By: #### 2 563000, 7372079, 9241543, 65607840 ####[address] [address] Lymphocytes (Bld) [#/Vol] 1.4 E9/L Normal 1.0-4.0 [facility] Comment on above: Performed By: #### 2 886254, 2071815, 4271220, 69303811 ####[address] [address] Lymphocytes/100 WBC (Bld) 38.9 % Normal 14.0-50.0 [facility] Comment on above: Performed By: #### 2 289807, 4895964, 7922129, 29703094 ####[address] [address] MCH (RBC) [Entitic mass] 29.8 pg Normal 27.0-34.0 [facility] Comment on above: Performed By: #### 2 117147, 2022214, 6680053, 88122805 ####[address] [address] MCHC (RBC) [Mass/Vol] 33.3 g/dL Normal 31.4-36.0 [facility] Comment on above: Performed By: #### 2 148263, 4299998, 4439435, 80332962 ####[address] [address] MCV (RBC) [Entitic vol] 89.5 fL Normal 80.0-100.0 [facility] Comment on above: Performed By: #### 2 550837, 0060474, 1868697, 09634940 ####[address] [address] Monocytes (Bld) [#/Vol] 0.2 E9/L Normal 0.2-1.0 [facility] Comment on above: Performed By: #### 2 479801, 5087249, 3781301, 18253972 ####[address] [address] Neutrophils (Bld) [#/Vol] 1.9 E9/L Low 2.0-7.5 [facility] Comment on above: Performed By: #### 2 679705, 1326161, 8841503, 90047169 ####[facility] [address] [place] [address] Neutrophils/100 WBC (Bld) 52.6 % Normal 36.0-75.0 [facility] Comment on above: Performed By: #### 2 564089, 6614704, 4660604, 13883039 ####[facility] [address] [place] [address] Platelet 195.0 E9/L Normal 150.0-500.0 [facility] Comment on above: Performed By: #### 2 336312, 8867503, 2103575, 75970229 ####[address] [address] Platelet mean volume (Bld) [Entitic vol] 9.0 fL Normal 6.4-10.8 [facility] Comment on above: Performed By: #### 2 238430, 5703500, 4051305, 53586320 ####[address] [address] RBC (Bld) [#/Vol] 4.6 E12/L Normal 4.3-5.9 [facility] Comment on above: Performed By: #### 2 814361, 1904829, 3798730, 27163121 ####[facility] [address] [place] [address] WBC corrected for nucl RBC Auto (Bld) [#/Vol] 3.6 E9/L Low 4.0-11.0 [facility] Comment on above: Performed By: #### 2 513796, 9121301, 1283026, 37911332 ####[facility] [address] [place] [address] CHEMISTRYOrdered By: SYSTEM SYSTEM on 05-17-2023 Albumin [...] 05-17-2023 Albumin [Mass/Vol] 4.5 g/dL Normal 3.3-5.0 [facility] Comment on above: Performed By: #### 2 979875, 6702455, 6831108, 76123330 ####[facility] [address] [place] [address] Albumin/Globulin (S) [Mass conc ratio] 1.6 Normal 1.1-2.2 [facility] Comment on above: Performed By: #### 2 228502, 9232889, 5010168, 63426802 ####[facility] [address] [place] [address] ALP [Catalytic activity/Vol] 61 Int._Unit/L Normal 21-98 [facility] Comment on above: Performed By: #### 2 362656, 7660838, 0113010, 13809486 ####[facility] [address] [place] [address] ALT No additional P-5'-P [Catalytic activity/Vol] 17 Int._Unit/L Normal 6-46 [facility] Comment on above: Performed By: #### 2 753848, 9654320, 7555819, 53444757 ####[facility] [address] [place] [address] Anion gap [Moles/Vol] 12 mmol/L Normal 6-16 [facility] Comment on above: Performed By: #### 2 057925, 2140577, 9431034, 48897599 ####[facility] [address] [place] [address] AST [Catalytic activity/Vol] 30 Int._Unit/L Normal 5-43 [facility] Comment on above: Performed By: #### 2 113788, 5031305, 4389598, 41115480 ####[facility] [address] [place] [address] Bilirubin [Mass/Vol] 0.5 mg/dL Normal 0.0-1.1 [facility] Comment on above: Performed By: #### 2 829237, 0603654, 5835431, 72663648 ####[facility] [address] [place] [address] Calcium [Mass/Vol] 9.2 mg/dL Normal 8.9-11.1 [facility] Comment on above: Performed By: #### 2 767858, 2446212, 4316361, 87816917 ####[facility] [address] [place] [address] Chloride [Moles/Vol] 106 mmol/L Normal 101-111 [facility] Comment on above: Performed By: #### 2 984794, 0641218, 4367779, 57988203 ####[facility] [address] [place] [address] CO2 [Moles/Vol] 24 mmol/L Normal 21-31 [facility] Comment on above: Performed By: #### 2 786780, 8511246, 4941512, 87906968 ####[facility] [address] [place] [address] Creatinine [Mass/Vol] 0.9 mg/dL Normal 0.5-1.3 [facility] Comment on above: Performed By: #### 2 459330, 9693048, 6555468, 05715155 ####[facility] [address] [place] [address] Globulin (S) [Mass/Vol] 2.9 g/dL Normal 1.4-4.0 [facility] Comment on above: Performed By: #### 2 289312, 4194434, 8229001, 94845095 ####[facility] [address] [place] [address] Glucose [Mass/Vol] 80 mg/dL Normal 55-199 [facility] Comment on above: Performed By: #### 2 606159, 8972680, 2593700, 68314814 ####[facility] [address] [place] [address] Potassium [Moles/Vol] 3.8 mmol/L Normal 3.5-5.3 [facility] Comment on above: Performed By: #### 2 106942, 5964493, 3407969, 85254897 ####[facility] [address] [place] [address] Protein [Mass/Vol] 7.4 g/dL Normal 6.0-7.8 [facility] Comment on above: Performed By: #### 2 557457, 7218488, 9167246, 63237341 ####[facility] [address] [place] [address] Sodium [Moles/Vol] 138 mmol/L Normal 135-145 [facility] Comment on above: Performed By: #### 2 808767, 8407141, 5136057, 20790993 ####[facility] [address] [place] [address] Urea nitrogen [Mass/Vol] 6 mg/dL Normal 5-21 [facility] Comment on above: Performed By: #### 2 982781, 3886861, 1673221, 40186871 ####[facility] [address] [place] [address] Urea nitrogen/Creatinine [Mass ratio] 7 No Units Low 10-20 [facility] Comment on above: Performed By: #### 2 379864, 5213019, 1977051, 74139906 ####[facility] [address] [place] [address] Consent for Treatmenton Consent for Treatment [id number] 906#1.00TIFF Normal [facility] Discharge Instructionson Discharge Instructions [id number] 524#1.00TIFF Normal [facility] ED Clinical Summaryon 2023 ED Clinical Summary Normal [facility] ED Note-Physicianon 05-17-19 ED Note-Physician Normal [facility] Comment on above: Result Comment: Elec tronically Signed By: Tiffani Cunningham PA-C.br\Date and Time Signed: 05/17/23 15:46 EDT\.br\Electronically Co-Signed By: Ashutosh Albright M.D..br\Date and Time Co-Signed: 05/17/23 17:49 EDT ED Patient Education Noteon 05-17-2023 ED Patient Education Note Normal [facility] ED Patient Summaryon ED Patient Summary Normal [facility] HEMATOLOGYOrdered By: SYSTEM SYSTEM on [...] 05-17-2023 Magnesium [Mass/Vol] 2.1 mg/dL Normal 1.3-2.4 [facility] Comment on above: Performed By: #### 2 168941, 5057724, 8269318, 63425951 ####[facility] [address] [place] [address] Population Healthon 05-17-19 24 Population Health Normal [facility] Pre-Arrival Noteon 4 Pre-Arrival Note Normal [facility] eGFRon 05-17-2023 eGFR 86 mL/min/1.73 m2 Normal >=59 [facility] Comment on above: Order Comment: Order added by Discern Expert. Performed By: #### 2 702922, 6408796, 9190617, 45676079 ####[facility] [address] [place] [address] BMPon 05-14-2023 Anion gap [Moles/Vol] 8 mmol/L Normal 6-16 [facility] Comment on above: Performed By: #### 1 2100787, 5292560, 3353784261, 5856185, 0140432177, 474888284, 3997784, 4795862, 21476841 ####[facility] [address] [place] [address] Calcium [Mass/Vol] 8.6 mg/dL Low 8.9-11.1 [facility] Comment on above: Performed By: #### 1 2051586, 5573280, 5100915037, 8641192, 3211073586, 152309923, 7042011, 7847584, 65739616 ####[facility] [address] [place] [address] Chloride [Moles/Vol] 110 mmol/L Normal 101-111 [facility] Comment on above: Performed By: #### 1 1979287, 2591653, 2480699121, 0943517, 2552974432, 518615410, 6016650, 7033339, 45845656 ####[facility] [address] [place] [address] CO2 [Moles/Vol] 26 mmol/L Normal 21-31 [facility] Comment on above: Performed By: #### 1 5752545, 0614320, 9276539715, 0104993, 1378761064, 590941229, 4965901, 4919403, 81835111 ####[facility] [address] [place] [address] Creatinine [Mass/Vol] 0.9 mg/dL Normal 0.5-1.3 [facility] Comment on above: Performed By: #### 1 4178076, 0844795, 0455330551, 1564030, 8020580666, 563420156, 4484459, 0019734, 23678020 ####[facility] [address] [place] [address] Glucose [Mass/Vol] 96 mg/dL Normal 55-199 [facility] Comment on above: Performed By: #### 1 7155000, 9083465, 7323859752, 6639015, 9474462851, 950720207, 6788525, 6376071, 48297953 ####[facility] [address] [place] [address] Potassium [Moles/Vol] 4.0 mmol/L Normal 3.5-5.3 [facility] Comment on above: Performed By: #### 1 0374870, 4622345, 5523443218, 6620729, 1896691052, 298660913, 2863945, 1542682, 78829001 ####[facility] [address] [place] [address] Sodium [Moles/Vol] 140 mmol/L Normal 135-145 [facility] Comment on above: Performed By: #### 1 6338582, 0600667, 6275424626, 0530764, 9171166713, 308725683, 2285588, 8755545, 43194480 ####[facility] [address] [place] [address] Urea nitrogen [Mass/Vol] 5 mg/dL Normal 5-21 [facility] Comment on above: Performed By: #### 1 7573714, 1748717, 8575017054, 0955454, 2245690270, 907313575, 0263263, 4538687, 19395866 ####[facility] [address] [place] [address] Urea nitrogen/Creatinine [Mass ratio] 6 No Units Low 10-20 [facility] Comment on above: Performed By: #### 1 3543148, 6825765, 4071651894, 0784265, 3143623145, 819164257, 0982208, 3682495, 59131890 ####[address] [place] [address] CBC w/ Auto Diffon 4 Basophils/100 WBC (Bld) 1.4 % Normal 0.0-2.0 [facility] Comment on above: Performed By: #### 1 0866987, 9409477, 8679801111, 3331827, 0587230497, 849874135, 2080198, 8594057, 26869813 ####[facility] [address] [place] [address] Basophils/Leukocyte s Auto (Bld) [Pure # fraction] 0.0 E9/L Normal 0.0-0.2 [facility] Comment on above: Performed By: #### 1 8285521, 2380593, 4506283203, 0489305, 6482653012, 510874221, 0295437, 7928317, 04810179 ####[address] [place] [address] Eosinophils (Bld) [#/Vol] 0.1 E9/L Normal 0.0-0.5 [facility] Comment on above: Performed By: #### 1 0171978, 3505984, 2039586790, 7290349, 5327903261, 354445674, 4666229, 6223900, 56002396 ####[address] [place] [address] Eosinophils/100 WBC (Bld) 6.1 % Normal 0.0-8.0 [facility] Comment on above: Performed By: #### 1 4258828, 6161868, 8875038502, 1434217, 0070641092, 472232474, 6622300, 5088839, 06445472 ####[address] [place] [address] Erythrocyte distribution width (RBC) [Ratio] 14.4 % High 10.9-14.2 [facility] Comment on above: Performed By: #### 1 5086933, 9815284, 5007382196, 1948229, 0894002829, 524342991, 7960827, 8479267, 68793956 ####[address] [address] Hematocrit (Bld) [Volume fraction] 36.1 % Normal 34.0-46.0 [facility] Comment on above: Performed By: #### 1 2591993, 2620436, 8045800505, 2704566, 5080291453, 222971795, 2789036, 5647320, 85663128 ####[address] [address] Hemoglobin (Bld) [Mass/Vol] 12.2 g/dL Normal 12.0-16.0 [facility] Comment on above: Performed By: #### 1 2841329, 4928304, 4552914582, 6697423, 0803163059, 366866676, 3011542, 7107356, 78942356 ####[facility] [address] [place] [address] Lymphocytes (Bld) [#/Vol] 1.1 E9/L Normal 1.0-4.0 [facility] Comment on above: Performed By: #### 1 8839633, 8975563, 6975088404, 7924027, 9466851254, 311017123, 8294639, 9718921, 95853764 ####[address] [place] [address] Lymphocytes/100 WBC (Bld) 51.0 % High 14.0-50.0 [facility] Comment on above: Performed By: #### 1 0451659, 0856934, 9856950288, 7630412, 2837138889, 222109027, 2166114, 4717265, 39010164 ####[address] [place] [address] MCH (RBC) [Entitic mass] 30.3 pg Normal 27.0-34.0 [facility] Comment on above: Performed By: #### 1 7777796, 4598544, 9069849249, 6717353, 1232415274, 979219240, 7108509, 2784556, 50422391 ####[address] [place] [address] MCHC (RBC) [Mass/Vol] 33.9 g/dL Normal 31.4-36.0 [facility] Comment on above: Performed By: #### 1 0883137, 3172097, 1563915186, 7816727, 6414811081, 971059076, 1728483, 5348815, 22726874 ####[address] [address] MCV (RBC) [Entitic vol] 89.3 fL Normal 80.0-100.0 [facility] Comment on above: Performed By: #### 1 2708630, 6804678, 5089908173, 0419777, 7870063387, 667024125, 8331191, 0129253, 55413935 ####[address] [place] [address] Monocytes (Bld) [#/Vol] 0.1 E9/L Low 0.2-1.0 [facility] Comment on above: Performed By: #### 1 6157342, 5073252, 5746924158, 1803218, 4452981803, 680948365, 8262194, 8479086, 91762019 ####[address] [place] [address] Neutrophils (Bld) [#/Vol] 0.8 E9/L Low 2.0-7.5 [facility] Comment on above: Performed By: #### 1 5528793, 2435165, 7037410976, 9995205, 7989125287, 576569373, 4052296, 3761186, 83351606 ####[address] [address] Neutrophils/100 WBC (Bld) 36.8 % Normal 36.0-75.0 [facility] Comment on above: Performed By: #### 1 1475085, 4328588, 2724132149, 4185414, 0169900882, 877060054, 4996757, 0388543, 65811878 ####[address] [place] [address] Platelet mean volume (Bld) [Entitic vol] 9.3 fL Normal 6.4-10.8 [facility] Comment on above: Performed By: #### 1 2093583, 8981370, 2155594761, 0988286, 1359755053, 133837737, 3425772, 8687866, 74522739 ####[address] [address] Platelets (Bld) [#/Vol] 167.0 E9/L Normal 150.0-500.0 [facility] Comment on above: Performed By: #### 1 5792876, 1762215, 0214399492, 0604456, 9306997387, 451183011, 2281292, 6759107, 81559415 ####[facility] [address] [place] [address] RBC (Bld) [#/Vol] 4.0 E12/L Low 4.3-5.9 [facility] Comment on above: Performed By: #### 1 0056692, 9342010, 2649117293, 0355281, 4891669442, 620430711, 8810553, 8079943, 63241925 ####[facility] [address] [place] [address] WBC corrected for nucl RBC Auto (Bld) [#/Vol] 2.1 E9/L Low 4.0-11.0 [facility] Comment on above: Result Comment: Resu lts consistant with previous path review on 05/13/23, reviewed by [id number] Performed By: #### 1 1414057, 6991442, 1371218422, 0463943, 5305039790, 869875973, 8655723, 2471295, 97833622 ####[facility] [address] [place] [address] CHEMISTRYOrdered By: SYSTEM SYSTEM on 05-14-2023 Anion [...] Chem Consultation Noteon 05-14-19 Consultation Note Normal [facility] Comment on above: Result Comment: Elec tronically Signed By: Miguel JOHNSON, Jon Smith\.br\Date and Time Signed: 05/14/23 11:54 EDT Discharge Note-Nursingon Discharge Note-Nursing Invalid Interpretation Code [address] [place] [address] [place] [address]- \.br\ Wednesday 9:45 AM EDT \.br\ With: Nasim JOHNSON, Rajni Ballesteros\.br\ Where: [facility] Folateon 05-14-2023 Folate [Mass/Vol] 10.1 ng/mL Normal >=6.7 [facility] Comment on above: Performed By: #### 1 9901531, 9198110, 1011619753, 8895767, 7614692611, 236947677, 7887873, 7018376, 40482979 ####[facility] [address] [place] [address] HEMATOLOGYOrdered By: SYSTEM SYSTEM on 05-14-2023 Basophils/100 [...] path review on 05/13/23, reviewed by KVNG Inpatient Clinical Summaryon 05-14-2023 Inpatient Clinical Summary Normal [facility] Inpatient Patient Summaryon 05-14-2023 Inpatient Patient Summary Normal [facility] Interdisciplinary Note - Taz e Manageron 05-14-2023 Interdisciplinary Note - Tooling Manager Normal [facility] Comment on above: Result Comment: Elec tronically Signed By: Kera Diehl\.br\Date and Time Signed: 05/14/23 10:23 EDT IntraOperative Documentson 0 05-14-2023 IntraOperative Documents [id number] 905#1.00TIFF [facility] Progress Note-Physicianon Progress Note-Physician [facility] Comment on above: Result Comment: Elec tronically Signed By: Moncho Trejo DO\.br\Date and Time Signed: 05/14/23 10:14 EDT Progress Note-Physician Normal [facility] Comment on above: Result Comment: Elec tronically Signed By: Kuldip Arcos Jr, DO\.br\Date and Time Signed: 05/14/23 07:41 EDT Progress Note-Physician Normal [facility] Comment on above: Result Comment: Elec tronically Signed By: Kuldip Arcos Jr, DO\.br\Date and Time Signed: 05/14/23 07:41 EDT Vit B12on 05-14-2023 Cobalamin (Vitamin B12) [Mass/Vol] 791 pg/mL Normal 50-1500 [facility] Comment on above: Performed By: #### 1 0677894, 4985560, 8461497702, 4432892, 9148474477, 796212167, 8988318, 6264275, 23111619 ####[facility] [address] [place] [address] eGFRon 05-14-2023 eGFR 86 mL/min/1.73 m2 Normal >=59 [facility] Comment on above: Order Comment: Order added by Discern Expert. Performed By: #### 1 4322085, 3933722, 9343392266, 7172209, 3477501338, 667100523, 8839896, 3268324, 77250707 ####[address] [address] CBC w/ Auto Diffon 4 Basophils/100 WBC (Bld) 1.2 % Normal 0.0-2.0 [facility] Comment on above: Performed By: #### 2 318240, 8760489, 43994723, 98054259 ####[address] [address] Basophils/Leukocyte s Auto (Bld) [Pure # fraction] 0.0 E9/L Normal 0.0-0.2 [facility] Comment on above: Performed By: #### 2 211932, 9987859, 72968633, 25643417 ####[address] [address] Eosinophils (Bld) [#/Vol] 0.1 E9/L Normal 0.0-0.5 [facility] Comment on above: Performed By: #### 2 031720, 2589698, 22774478, 03928962 ####[address] [address] Eosinophils/100 WBC (Bld) 4.7 % Normal 0.0-8.0 [facility] Comment on above: Performed By: #### 2 502368, 6380663, 41624625, 02176614 ####[address] [address] Erythrocyte distribution width (RBC) [Ratio] 14.3 % High 10.9-14.2 [facility] Comment on above: Performed By: #### 2 618231, 5996494, 51350524, 09283735 ####[address] [address] Hematocrit (Bld) [Volume fraction] 37.1 % Normal 34.0-46.0 [facility] Comment on above: Performed By: #### 2 142762, 2847804, 04301461, 21596429 ####[facility] [address] [place] [address] Hemoglobin (Bld) [Mass/Vol] 12.5 g/dL Normal 12.0-16.0 [facility] Comment on above: Performed By: #### 2 132700, 6893734, 24931226, 85204320 ####[address] [address] Lymphocytes (Bld) [#/Vol] 1.1 E9/L Normal 1.0-4.0 [facility] Comment on above: Performed By: #### 2 802780, [id number], [id number], [id number] ####[address] [address] Lymphocytes/100 WBC (Bld) 53.2 % High 14.0-50.0 [facility] Comment on above: Performed By: #### 2 779345, 5622930, [id number], [id number] ####[address] [address] MCH (RBC) [Entitic mass] 30.1 pg Normal 27.0-34.0 [facility] Comment on above: Performed By: #### 2 335214, 0406692, [id number], [id number] ####[address] [address] MCHC (RBC) [Mass/Vol] 33.6 g/dL Normal 31.4-36.0 [facility] Comment on above: Performed By: #### 2 694311, 2937171, 06694841, [id number] ####[address] [address] MCV (RBC) [Entitic vol] 89.4 fL Normal 80.0-100.0 [facility] Comment on above: Performed By: #### 2 123971, 4457013, [id number], [id number] ####[facility] [address] [place] [address] Monocytes (Bld) [#/Vol] 0.1 E9/L Low 0.2-1.0 [facility] Comment on above: Performed By: #### 2 223082, 3464983, 23653719, [id number] ####[address] [address] Neutrophils (Bld) [#/Vol] 0.7 E9/L Low 2.0-7.5 [facility] Comment on above: Performed By: #### 2 915585, 8309943, [id number], [id number] ####[address] [address] Neutrophils/100 WBC (Bld) 34.6 % Low 36.0-75.0 [facility] Comment on above: Performed By: #### 2 776945, 8407226, 72545264, 95573750 ####[address] [address] Platelet 168.0 E9/L Normal 150.0-500.0 [facility] Comment on above: Performed By: #### 2 758593, 0663812, 65061727, 27904070 ####[address] [address] Platelet mean volume (Bld) [Entitic vol] 9.1 fL Normal 6.4-10.8 [facility] Comment on above: Performed By: #### 2 670134, 3610707, 07261386, 32731398 ####[address] [address] RBC (Bld) [#/Vol] 4.1 E12/L Low 4.3-5.9 [facility] Comment on above: Performed By: #### 2 906800, 7687096, 48865819, 85973410 ####[address] [place] [address] WBC corrected for nucl RBC Auto (Bld) [#/Vol] 2.0 E9/L Abnormal 4.0-11.0 [facility] Comment on above: Result Comment: Resu lts called to JACKSON MARROQUIN by AG and read back on 05/13/2023 07:20:49.Critical Result Verified by Repeat AnalysisSlide review performed Performed By: #### 2 746213, 1109441, 48193569, 76574075 ####[facility] [address] [place] [address] CHEMISTRYOrdered By: SYSTEM SYSTEM on 05-13-2023 Albumin [...] 05-13-2023 Albumin [Mass/Vol] 3.9 g/dL Normal 3.3-5.0 [facility] Comment on above: Performed By: #### 2 453871, 9153367, 02821667, 67704249 ####[facility] [address] [place] [address] Albumin/Globulin (S) [Mass conc ratio] 1.6 Normal 1.1-2.2 [facility] Comment on above: Performed By: #### 2 737524, 0594140, 47805007, 03175022 ####[facility] [address] [place] [address] ALP [Catalytic activity/Vol] 49 Int._Unit/L Normal 21-98 [facility] Comment on above: Performed By: #### 2 677189, 9325248, 06621404, 70967997 ####[facility] [address] [place] [address] ALT No additional P-5'-P [Catalytic activity/Vol] 12 Int._Unit/L Normal 6-46 [facility] Comment on above: Performed By: #### 2 746795, 5198883, 94050496, 80194590 ####[facility] [address] [place] [address] Anion gap [Moles/Vol] 9 mmol/L Normal 6-16 [facility] Comment on above: Performed By: #### 2 078068, 6020429, 03656847, 82311392 ####[facility] [address] [place] [address] AST [Catalytic activity/Vol] 23 Int._Unit/L Normal 5-43 [facility] Comment on above: Performed By: #### 2 991729, 2279276, 38283631, 89955919 ####[facility] [address] [place] [address] Bilirubin [Mass/Vol] 0.4 mg/dL Normal 0.0-1.1 [facility] Comment on above: Performed By: #### 2 772041, 9432153, 67956709, 23983418 ####[facility] [address] [place] [place] [address] Calcium [Mass/Vol] 8.4 mg/dL Low 8.9-11.1 [facility] Comment on above: Performed By: #### 2 908701, 5978172, 96013000, 98921457 ####[facility] [address] [place] [address] Chloride [Moles/Vol] 111 mmol/L Normal 101-111 [facility] Comment on above: Performed By: #### 2 487488, 4715667, 17758978, 80872492 ####[facility] Ofgpb[address] [place] [address] CO2 [Moles/Vol] 24 mmol/L Normal 21-31 [facility] Comment on above: Performed By: #### 2 395717, 4779071, 61245070, 69637685 ####[facility] [address] [place] [address] Creatinine [Mass/Vol] 0.7 mg/dL Normal 0.5-1.3 [facility] Comment on above: Performed By: #### 2 824990, 3215223, 11834438, 74852614 ####[facility] [address] [place] [address] Globulin (S) [Mass/Vol] 2.5 g/dL Normal 1.4-4.0 [facility] Comment on above: Performed By: #### 2 711440, 4933075, 18076601, 98054090 ####[facility] [address] [place] [address] Glucose [Mass/Vol] 84 mg/dL Normal 55-199 [facility] Comment on above: Performed By: #### 2 615369, 4930154, 42127627, 90183102 ####[facility] [address] [place] [address] Potassium [Moles/Vol] 3.7 mmol/L Normal 3.5-5.3 [facility] Comment on above: Performed By: #### 2 107610, 8131732, 28970356, 70670944 ####[facility] [address] [place] [address] Protein [Mass/Vol] 6.4 g/dL Normal 6.0-7.8 [facility] Comment on above: Performed By: #### 2 856250, 9794036, 37532738, 66622819 ####[facility] [address] [place] [address] Sodium [Moles/Vol] 140 mmol/L Normal 135-145 [facility] Comment on above: Performed By: #### 2 237433, 0809787, 61998539, 98795230 ####[facility] [address] [place] [address] Urea nitrogen [Mass/Vol] 7 mg/dL Normal 5-21 [facility] Comment on above: Performed By: #### 2 803836, 4990503, 79101302, 66380043 ####[facility] [address] [place] [address] Urea nitrogen/Creatinine [Mass ratio] 10 No Units Normal 10-20 [facility] Comment on above: Performed By: #### 2 577944, 3137841, 39900384, 82649741 ####[facility] [address] [place] [address] Consenton 05-13-2023 Consent [id number] 250#1.00TIFF Normal [facility] Consultation Noteon 05-13-19 Consultation Note Normal [facility] Comment on above: Result Comment: [...] reticulocytes. Leukocytopenia with reactive lymphocytes and monocytes.CPT 42070 Invalid Interpretation Code [facility] HemeManSS Interdisciplinary Note - Taz e Manageron 05-13-2023 Interdisciplinary Note - Tooling Manager Normal [facility] Comment on above: Result Comment: Elec tronically Signed By: Kera Diehl\.br\Date and Time Signed: 05/13/23 13:46 EDT Main OR Intraoperative Recor don 05-13-2023 Main OR Intraoperative Record Normal [facility] Oncology Progress Noteon Oncology Progress Note Normal [facility] Path. Reviewon 05-13-2023 Path Review Anemia with no increase of reticulocytes. Leukocytopenia with reactive lymphocytes and monocytes. Invalid Interpretation Code [facility] Comment on above: Order Comment: Order added by Discern Expert Performed By: #### 2 301295, 6849879, 86244635, 40603165 ####[facility] [address] [place] [address] Progress Note-Physicianon Progress Note-Physician Normal [facility] Comment on above: Result Comment: Elec tronically Signed By: Neil VALENZUELA, Moncho Santo\Date and Time Signed: 05/13/23 10:43 EDT eGFRon 05-13-2023 eGFR 116 mL/min/1.73 m2 Normal >=59 [facility] Comment on above: Order Comment: Order added by Discern Expert. Performed By: #### 2 575123, 4760331, 78031279, 59467885 ####[facility] [address] [place] [address] B hCG Qualon 05-12-2023 Beta HCG ( test) Ql Negative Normal [facility] Comment on above: Performed By: #### 2 533751, 88637945, 1665320, 2819409, 58018347, 67832944, 23311210, 7572158 ####[facility] [address] [place] [address] BMPOrdered By: SYSTEM SYSTEM on 05-12-2023 Anion gap [Moles/Vol] 11 mmol/L Normal 6-16 [facility] Comment on above: Performed By: #### 2 612376, 25170558, 9637742, 8269335, 94075199, 87815152, 53294574, 8628021 ####[facility] [address] [place] [address] Calcium [Mass/Vol] 9.0 mg/dL Normal 8.9-11.1 [facility] Comment on above: Performed By: #### 2 436568, 52378403, 7377392, 2990439, 68228577, 27154757, 31922522, 1196534 ####[facility] [address] [place] [address] Chloride [Moles/Vol] 105 mmol/L Normal 101-111 [facility] Comment on above: Performed By: #### 2 135652, 52012482, 0746771, 3418137, 57948188, 41973571, 03732500, 0724083 ####[facility] [address] [place] [address] CO2 [Moles/Vol] 25 mmol/L Normal 21-31 [facility] Comment on above: Performed By: #### 2 420626, 45363934, 4674865, 0478411, 18601591, 00053570, 47406362, 5154711 ####[place] [facility] [address] [place] [address] Creatinine [Mass/Vol] 1.0 mg/dL Normal 0.5-1.3 [facility] Comment on above: Performed By: #### 2 130774, 18856599, 6985131, 1457742, 71007228, 21314721, 77903565, 8056501 ####[place] [address] [address] Glucose [Mass/Vol] 94 mg/dL Normal 55-199 [facility] Comment on above: Performed By: #### 2 128421, 64857630, 3783005, 6547665, 43989143, 97386338, 80878150, 9387848 ####[place] [address] [address] Potassium [Moles/Vol] 3.9 mmol/L Normal 3.5-5.3 [facility] Comment on above: Performed By: #### 2 901110, 59511795, 4209052, 6460122, 88360758, 41400344, 58489005, 9240551 ####[place] [address] [address] Sodium [Moles/Vol] 137 mmol/L Normal 135-145 [facility] Comment on above: Performed By: #### 2 630759, 48085446, 8732460, 8137526, 47869893, 92624677, 28357471, 2594570 ####[place] [address] [address] Urea nitrogen [Mass/Vol] 10 mg/dL Normal 5-21 [facility] Comment on above: Performed By: #### 2 077923, 66789770, 8242413, 5461705, 00093918, 21094863, 41362342, 1470715 ####[place] [address] [place] [address] BMPon 05-12-2023 Urea nitrogen/Creatinine [Mass ratio] 10 No Units Normal 10-20 [facility] Comment on above: Performed By: #### 2 328975, 22348940, 2829175, 6454276, 40407953, 42573850, 97985210, 0025546 ####[address] [address] CBC w/ Auto DiffOrdered By: SYSTEM SYSTEM on 05-12-2023 Basophils/100 WBC (Bld) 0.9 % Normal 0.0-2.0 [facility] Comment on above: Performed By: #### 2 871780, 09632122, 9835394, 5620806, 90405876, 02754001, 88419504, 0210987 ####[address] [address] Basophils/Leukocyte s Auto (Bld) [Pure # fraction] 0.0 E9/L Normal 0.0-0.2 [facility] Comment on above: Performed By: #### 2 785958, 11549006, 9343403, 6288221, 52309344, 93918140, 69786603, 3900000 ####[address] [address] Eosinophils (Bld) [#/Vol] 0.1 E9/L Normal 0.0-0.5 [facility] Comment on above: Performed By: #### 2 827718, 08728386, 6784920, 4067745, 59877831, 08512156, 43258717, 5666530 ####[address] [address] Eosinophils/100 WBC (Bld) 2.3 % Normal 0.0-8.0 [facility] Comment on above: Performed By: #### 2 579008, 10962900, 9529458, 8936254, 62031083, 42925693, 28277250, 6624699 ####[address] [address] Erythrocyte distribution width (RBC) [Ratio] 14.3 % High 10.9-14.2 [facility] Comment on above: Performed By: #### 2 304245, 37794399, 1052987, 2376934, 20544282, 10763768, 77196620, 0572511 ####[address] [address] Hematocrit (Bld) [Volume fraction] 39.8 % Normal 34.0-46.0 [facility] Comment on above: Performed By: #### 2 079967, 68086246, 3173535, 0675589, 74581575, 28299031, 80020594, 9078108 ####[address] [address] Hemoglobin (Bld) [Mass/Vol] 13.5 g/dL Normal 12.0-16.0 [facility] Comment on above: Performed By: #### 2 832265, 61174739, 3015021, 9072594, 42930067, 62617566, 50429245, 2065045 ####[address] [address] Lymphocytes (Bld) [#/Vol] 1.3 E9/L Normal 1.0-4.0 [facility] Comment on above: Performed By: #### 2 483240, 98466887, 3944936, 6725872, 26124985, 17216662, 52287764, 2657347 ####[address] [address] Lymphocytes/100 WBC (Bld) 46.0 % Normal 14.0-50.0 [facility] Comment on above: Performed By: #### 2 075811, 35253564, 8223500, 7611597, 12938140, 92044601, 50772401, 3114754 ####[place] [address] [address] MCH (RBC) [Entitic mass] 30.2 pg Normal 27.0-34.0 [facility] Comment on above: Performed By: #### 2 507570, 47500354, 5053164, 3413998, 93900554, 80928889, 69971438, 3485139 ####[place] [address] MCHC (RBC) [Mass/Vol] 34.0 g/dL Normal 31.4-36.0 [facility] Comment on above: Performed By: #### 2 732763, 32364426, 8443306, 9287638, 13409117, 09551755, 09466435, 8804351 ####[address] [address] MCV (RBC) [Entitic vol] 88.8 fL Normal 80.0-100.0 [facility] Comment on above: Performed By: #### 2 009395, 23122928, 3548946, 9428455, 34865433, 15580954, 87212548, 2015239 ####[place] [address] Monocytes (Bld) [#/Vol] 0.2 E9/L Normal 0.2-1.0 [facility] Comment on above: Performed By: #### 2 710075, 33154825, 8078264, 2006843, 33671708, 57755412, 04615347, 1599196 ####[address] [address] Neutrophils (Bld) [#/Vol] 1.2 E9/L Low 2.0-7.5 [facility] Comment on above: Performed By: #### 2 380210, 51323790, 7750794, 4773115, 36059531, 31002313, 61176170, 7261258 ####[address] [address] Neutrophils/100 WBC (Bld) 42.5 % Normal 36.0-75.0 [facility] Comment on above: Performed By: #### 2 112004, 72162221, 9023543, 6594031, 13216607, 12629306, 75666053, 9570706 ####[place] [address] [address] Platelet mean volume (Bld) [Entitic vol] 9.0 fL Normal 6.4-10.8 [facility] Comment on above: Performed By: #### 2 184809, 65788947, 4231126, 3754137, 93708824, 08370322, 49769570, 8161199 ####[place] [address] Platelets (Bld) [#/Vol] 179.0 E9/L Normal 150.0-500.0 [facility] Comment on above: Performed By: #### 2 684774, 02926921, 0204294, 9648068, 42729226, 44146166, 47917745, 9816204 ####[place] [address]257 RBC (Bld) [#/Vol] 4.5 E12/L Normal 4.3-5.9 [facility] Comment on above: Performed By: #### 2 305598, 30150969, 8405526, 1126370, 67834305, 45107817, 57105477, 3030668 ####[place] [address] [address] WBC corrected for nucl RBC Auto (Bld) [#/Vol] 2.8 E9/L Low 4.0-11.0 [facility] Comment on above: Performed By: #### 2 004420, 24758862, 1726408, 3995163, 82656978, 03253243, 78718450, 9784628 ####[place] [address] [address] CHEMISTRYOrdered By: SYSTEM SYSTEM on 05-12-2023 Albumin/Globulin [...] 34.7 s Normal 25.1 - 36.5 second(s) [facility] Auto Coag Comment on [...] the same coagulation reagent and instrumentation as [facility]. Currently there are no coagulation studies available worldwide for children to 14 days, and no normal ranges. Heparin therapeutic range (represented by Anti-Factor Xa activity of 0.2 - 0.4 U/mL) corresponds to PTT of 56.6 - 109.0 sec. PT Coag (PPP) [Time] 13.1 s High 9.4 - 12.5 second(s) [facility] Auto Coag Comment on [...] the same coagulation reagent and instrumentation as [facility]. Currently there are no coagulation studies available worldwide for children to 14 days, and no normal ranges. Consent for Treatmenton 04-16 Consent for Treatment [id number] 68#1.00TIFF Normal [facility] Consultation Noteon 05-12-19 Consultation Note Normal [facility] Comment on above: Result Comment: Elec tronically Signed By: Miguel JOHNSON, Jon Smith\.br\Date and Time Signed: 05/12/23 15:42 EDT ED Clinical Summaryon 2023 ED Clinical Summary Normal [facility] ED Note-Physicianon 05-12-19 ED Note-Physician Normal [facility] Comment on above: Result Comment: Elec tronically Signed By: Mauricio López PA-C\.br\Date and Time Signed: 05/12/23 12:06 EDT\.br\Electronically Co-Signed By: Mateusz Garcia DO.br\Date and Time Co-Signed: 05/12/23 12:48 EDT ED Patient Education Noteon 05-12-2023 ED Patient Education Note Normal [facility] ED Patient Summaryon 024 ED Patient Summary Normal [facility] Endoscopic Procedure Report - Otheron 05-12-2023 Endoscopic Procedure Report - Other Normal [facility] Comment on above: Result Comment: Elec tronically Signed By: Miguel JOHNSON, Jon Smith\.rene\Date and Time Signed: 05/12/23 15:48 EDT Other Comment: Ramya jordan Attachment - attachment storage system not supported [id number] Can be viewed in source systemMissing Attachment - attachment storage system not supported [id number] Can be viewed in source systemMissing Attachment - attachment storage system not supported [id number] Can be viewed in source systemMissing Attachment - attachment storage system not supported [id number] Can be viewed in source systemMissing Attachment - attachment storage system not supported [id number] Can be viewed in source systemMissing Attachment - attachment storage system not supported [id number] Can be viewed in source systemMissing Attachment - attachment storage system not supported 4164414 Can be viewed in source systemMissing Attachment - attachment storage system not supported [id number] Can be viewed in source systemMissing Attachment - attachment storage system not supported [id number] Can be viewed in source system HEMATOLOGYOrdered By: SYSTEM SYSTEM on 05-12-2023 Monocytes/100 WBC (Bld) 8.3 % Normal 4.0 - 14.0 % [facility] Hep Func PanelOrdered By: SY STEM SYSTEM on 05-12-2023 Albumin [Mass/Vol] 4.3 g/dL Normal 3.3-5.0 [facility] Comment on above: Performed By: #### 2 966047, 70929889, 3674981, 5284642, 08760270, 12643857, 36482983, 1971350 ####[facility] [address] [place] [address] Bilirubin [Mass/Vol] 0.4 mg/dL Normal 0.0-1.1 [facility] Comment on above: Performed By: #### 2 252490, 98512450, 7170352, 2432667, 79157691, 51057975, 85068862, 0826986 ####[facility] [address] [place] [address] Bilirubin.direct [Mass/Vol] 0.1 mg/dL Normal 0.0-0.4 [facility] Comment on above: Performed By: #### 2 762312, 26393776, 6816099, 1512213, 43928198, 87355418, 01542751, 8786630 ####[place] [address] [place] [address] Bilirubin.indirect [Mass or moles/Vol] 0.3 mg/dL Normal 0.1-0.9 [facility] Comment on above: Performed By: #### 2 982705, 27835645, 4053980, 7199620, 77177786, 60732556, 39607347, 2562414 ####[address] [address] Globulin (S) [Mass/Vol] 2.3 g/dL Normal 1.4-4.0 [facility] Comment on above: Performed By: #### 2 521498, 98518139, 7796070, 3183721, 85404332, 20600374, 16130472, 0124426 ####[address] [address] Protein [Mass/Vol] 6.6 g/dL Normal 6.0-7.8 [facility] Comment on above: Performed By: #### 2 698313, 81211023, 4167608, 7403568, 94149543, 61411687, 52117855, 0370478 ####[address] [address] Hep Func Panelon 05-12-2023 Albumin/Globulin (S) [Mass conc ratio] 1.9 Normal 1.1-2.2 [facility] Comment on above: Performed By: #### 2 194813, 47747913, 9660236, 4339303, 29978405, 35719509, 89052730, 8070564 ####[address] [address] ALP [Catalytic activity/Vol] 58 Int._Unit/L Normal 21-98 [facility] Comment on above: Performed By: #### 2 526440, 40136685, 6816739, 7706081, 60554579, 62929339, 53203363, 5302337 ####[facility] [address] [place] [address] ALT No additional P-5'-P [Catalytic activity/Vol] 14 Int._Unit/L Normal 6-46 [facility] Comment on above: Performed By: #### 2 222422, 13180432, 1530725, 7932576, 01816635, 74164264, 96112854, 8569815 ####[facility] [address] [place] [address] AST [Catalytic activity/Vol] 26 Int._Unit/L Normal 5-43 [facility] Comment on above: Performed By: #### 2 118321, 33221837, 8169067, 2071599, 96556488, 81840379, 93961410, 0601926 ####[facility] [address] [place] [address] Interdisciplinary Note - Taz e Manageron 05-12-2023 Interdisciplinary Note - Tooling Manager Normal [facility] Comment on above: Result Comment: Elec tronically Signed By: Kera Diehl\.br\Date and Time Signed: 05/12/23 15:40 EDT Lipase LevelOrdered By: SYST EM SYSTEM on 05-12-2023 Lipase [Catalytic activity/Vol] 35 U/L Normal 13-58 [facility] Comment on above: Performed By: #### 2 565040, 97569756, 4959913, 5003916, 66334823, 49080267, 06304607, 1232976 ####[facility] [address] [place] [address] Main OR PACU I Recordon 04-16 Main OR PACU I Record Normal [facility] Main OR Preoperative Recordo n 05-12-2023 Main OR Preoperative Record Normal [facility] Monitor Recordon 05-12-2023 Monitor Record [id number] 467#1.00TIFF Normal [facility] Monitor Record [id number] 386#1.00TIFF Normal [facility] Monitor Record [id number]#1.00TIFF Normal [facility] PT & PTTon 05-12-2023 aPTT Coag (PPP) [Time] 34.7 second(s) Normal 25.1-36.5 [facility] Comment on above: Result Comment: [...] the same coagulation reagent and instrumentation as [facility]. Currently there are no coagulation studies available worldwide for children to 14 days, and no normal ranges. Heparin therapeutic range (represented by Anti-Factor Xa activity of 0.2 - 0.4 U/mL) corresponds to PTT of 56.6 - 109.0 sec. Performed By: #### 2 915331, 27604017, 5022564, 6678624, 66222649, 72049856, 95666766, 1474999 ####[facility] [address] [place] [address] PT Coag (PPP) [Time] 13.1 second(s) High 9.4-12.5 [facility] Comment on above: Result Comment: [...] the same coagulation reagent and instrumentation as [facility]. Currently there are no coagulation studies available worldwide for children to 14 days, and no normal ranges. Performed By: #### 2 224656, 04834630, 8009654, 9633465, 25064695, 81586776, 12270806, 3498530 ####[facility] [address] [place] [address] PT & PTTOrdered By: Shannon cutler on 05-12-2023 INR Coag (PPP) [Relative time] 1.17 {INR} Invalid Interpretation Code [facility] Auto Coag Comment on [...] 3.0 ? 4.5 Performed By: #### 2 907415, 22910645, 9012402, 1366016, 80856339, 77758996, 95062934, 1294431 ####[facility] [address] [place] [address] Provider Letteron 05-12-2023 Provider Letter Normal [facility] SEROLOGYOrdered By: Shannon cutler on 05-12-2023 Beta HCG ( test) Ql Negative (05/12/23 10:00 AM) Normal [facility] Man Sero Troponin 0 Hr.on 05-12-2023 Troponin I.cardiac [Mass/Vol] ng/mL Low 10.10-27.10 [facility] Comment on above: Result Comment: The 95% CI (Confidence Interval) PPV (Positive Predictive Value) for myocardial infarction in females is 38 pg/mL, in males 51 pg/mL. The results should be used in conjunction with clinical conditions of myocardial infarction.(Access High Sensitivity Troponin I Instructions For Use, Alan Gordy, September 2017) Performed By: #### 2 961883, 08437459, 8986547, 7863386, 78524575, 53203190, 62315644, 0735954 ####[place] [address] [place] [address] eGFROrdered By: SYSTEM PoeticaE Nopsec on 05-12-2023 eGFR 76 mL/min/1.73 m2 Normal >=59 [facility] Comment on above: Order Comment: Order added by Discern Expert. Performed By: #### 2 898426, 52312493, 5423157, 4236513, 85176901, 42999522, 15796328, 6475246 ####[address] [address] CBC w/ Auto Diffon Basophils/100 WBC (Bld) 0.7 % Normal 0.0-2.0 [facility] Comment on above: Performed By: #### 2 646321, 60055472, 2487739, 7958407, 5587308, 8123181 ####[address] [address] Basophils/Leukocyte s Auto (Bld) [Pure # fraction] 0.0 E9/L Normal 0.0-0.2 [facility] Comment on above: Performed By: #### 2 424391, 16817333, 1128623, 6664570, 1515435, 2433554 ####[address] [address] Eosinophils (Bld) [#/Vol] 0.0 E9/L Normal 0.0-0.5 [facility] Comment on above: Performed By: #### 2 205522, 13029264, 8676428, [id number], [id number], [id number] ####[address] [address] Eosinophils/100 WBC (Bld) 1.5 % Normal 0.0-8.0 [facility] Comment on above: Performed By: #### 2 [id number], [id number], [id number], [id number], [id number], [id number] ####[id number] [place] [address] Erythrocyte distribution width (RBC) [Ratio] 14.6 % High 10.9-14.2 [facility] Comment on above: Performed By: #### 2 182182, 00276582, 3903592, 4275305, 1871836, 8567297 ####[address] [address] Hematocrit (Bld) [Volume fraction] 38.7 % Normal 34.0-46.0 [facility] Comment on above: Performed By: #### 2 570724, 25752697, 6716325, 1988930, 3236331, 9138748 ####[address] [address] Hemoglobin (Bld) [Mass/Vol] 13.2 g/dL Normal 12.0-16.0 [facility] Comment on above: Performed By: #### 2 418465, 66873983, 3530656, 6552188, 8278783, 5090265 ####[address] [address] Lymphocytes (Bld) [#/Vol] 1.3 E9/L Normal 1.0-4.0 [facility] Comment on above: Performed By: #### 2 170127, 82238972, 8699684, 7952201, 1936124, 2360310 ####[address] [address] Lymphocytes/100 WBC (Bld) 48.6 % Normal 14.0-50.0 [facility] Comment on above: Performed By: #### 2 278812, 45643983, 5451803, 8539009, 1802576, 7933059 ####[address] [address] MCH (RBC) [Entitic mass] 30.3 pg Normal 27.0-34.0 [facility] Comment on above: Performed By: #### 2 840852, 52842572, 8281398, 5638196, 8125307, 1751215 ####[address] [address] MCHC (RBC) [Mass/Vol] 34.2 g/dL Normal 31.4-36.0 [facility] Comment on above: Performed By: #### 2 685406, 03665065, 5772740, 3982234, 3866200, 6703922 ####[address] [address] MCV (RBC) [Entitic vol] 88.6 fL Normal 80.0-100.0 [facility] Comment on above: Performed By: #### 2 105415, 84085980, 3613102, 8610158, 5139477, 4413160 ####[address] [address] Monocytes (Bld) [#/Vol] 0.2 E9/L Normal 0.2-1.0 [facility] Comment on above: Performed By: #### 2 140491, 98030736, 6190564, 4722863, 0217717, 2092422 ####[address] [address] Neutrophils (Bld) [#/Vol] 1.1 E9/L Low 2.0-7.5 [facility] Comment on above: Performed By: #### 2 321874, 35255396, 1732464, 3571167, 0041268, 9100797 ####[address] [address] Neutrophils/100 WBC (Bld) 40.2 % Normal 36.0-75.0 [facility] Comment on above: Performed By: #### 2 245736, 34133194, 0801198, 1579665, 4122293, 4633858 ####[address] [address] Platelet mean volume (Bld) [Entitic vol] 9.2 fL Normal 6.4-10.8 [facility] Comment on above: Performed By: #### 2 933256, 29098368, 0443225, 5747217, 8080467, 4833714 ####[facility] [address] [place] [address] Platelets (Bld) [#/Vol] 195.0 E9/L Normal 150.0-500.0 [facility] Comment on above: Performed By: #### 2 430982, 91816740, 8571765, 3166947, 3893336, 3443796 ####[facility] [address] [place] [address] RBC (Bld) [#/Vol] 4.4 E12/L Normal 4.3-5.9 [facility] Comment on above: Performed By: #### 2 121648, 00318076, 9001277, 1250931, 8901854, 3766749 ####[facility] [address] [place] [address] WBC corrected for nucl RBC Auto (Bld) [#/Vol] 2.7 E9/L Low 4.0-11.0 [facility] Comment on above: Performed By: #### 2 220463, 60410288, 9211430, 2173252, 5989626, 1569696 ####[facility] [address] [place] [address] CHEMISTRYOrdered By: SYSTEM SYSTEM on 05-11-2023 Amphetamines [...] Alternate Method called to Maribel Ortega by [id number] Interpretive Data: N egative Cutoff: <300 ng/mL [...] 05-11-2023 Albumin [Mass/Vol] 4.6 g/dL Normal 3.3-5.0 [facility] Comment on above: Performed By: #### 2 365273, 52417385, 4500692, 7102710, 3521886, 9003917 ####[facility] [address] [place] [address] Albumin/Globulin (S) [Mass conc ratio] 1.8 Normal 1.1-2.2 [facility] Comment on above: Performed By: #### 2 762396, 07710956, 5170634, 6281252, 8086542, 0801057 ####[facility] [address] [place] [address] ALP [Catalytic activity/Vol] 60 Int._Unit/L Normal 21-98 [facility] Comment on above: Performed By: #### 2 694211, 68991704, 2395925, 8452093, 2148952, 2626614 ####[facility] [address] [place] [address] ALT No additional P-5'-P [Catalytic activity/Vol] 14 Int._Unit/L Normal 6-46 [facility] Comment on above: Performed By: #### 2 184466, 28901833, 6999248, 6148043, 0572924, 7922165 ####[address] [address] Anion gap [Moles/Vol] 15 mmol/L Normal 6-16 [facility] Comment on above: Performed By: #### 2 781511, 96395307, 8735573, 9085361, 2873359, 9353200 ####[address] [address] AST [Catalytic activity/Vol] 25 Int._Unit/L Normal 5-43 [facility] Comment on above: Performed By: #### 2 275775, 51919624, 5843061, 2523249, 3588313, 0047783 ####[facility] [address] [place] [address] Bilirubin [Mass/Vol] 0.5 mg/dL Normal 0.0-1.1 [facility] Comment on above: Performed By: #### 2 390724, 71323246, 8345607, 8146124, 8554092, 3103043 ####[facility] [address] [place] [address] Calcium [Mass/Vol] 9.4 mg/dL Normal 8.9-11.1 [facility] Comment on above: Performed By: #### 2 411075, 81250276, 5270152, 7622585, 7392884, 6635761 ####[facility] [address] [place] [address] Chloride [Moles/Vol] 104 mmol/L Normal 101-111 [facility] Comment on above: Performed By: #### 2 261769, 22916242, 1000762, 1925665, 9424333, 3337380 ####[facility] [address] [place] [address] CO2 [Moles/Vol] 23 mmol/L Normal 21-31 [facility] Comment on above: Performed By: #### 2 341863, 67139893, 6641049, 3017682, 3596987, 2333957 ####[address] [address] Creatinine [Mass/Vol] 0.8 mg/dL Normal 0.5-1.3 [facility] Comment on above: Performed By: #### 2 230175, 01096425, 7122500, 4797583, 2685451, 6116223 ####[facility] [address] [place] [address] Globulin (S) [Mass/Vol] 2.5 g/dL Normal 1.4-4.0 [facility] Comment on above: Performed By: #### 2 861671, 50221204, 0761720, 3229316, 0319822, 3435178 ####[facility] [address] [place] [address] Glucose [Mass/Vol] 80 mg/dL Normal 55-199 [facility] Comment on above: Performed By: #### 2 984646, 21272226, 8969593, 9393870, 8043540, 1413609 ####[facility] [address] [place] [address] Potassium [Moles/Vol] 3.6 mmol/L Normal 3.5-5.3 [facility] Comment on above: Performed By: #### 2 164594, 87800339, 6280222, 3492040, 5925007, 6086954 ####[facility] [address] [place] [address] Protein [Mass/Vol] 7.1 g/dL Normal 6.0-7.8 [facility] Comment on above: Performed By: #### 2 396850, 85110968, 1955995, 1760219, 9664142, 4711829 ####[facility] [address] [place] [address] Sodium [Moles/Vol] 138 mmol/L Normal 135-145 [facility] Comment on above: Performed By: #### 2 306530, 30699785, 0465851, 4351087, 5369697, 8442045 ####[facility] [address] [place] [address] Urea nitrogen [Mass/Vol] 9 mg/dL Normal 5-21 [facility] Comment on above: Performed By: #### 2 379432, 08920315, 5138560, 0925503, 7734711, 1616955 ####[facility] [address] [place] [address] Urea nitrogen/Creatinine [Mass ratio] 11 No Units Normal 10- [facility] Comment on above: Performed By: #### 2 900431, 48249204, 3299098, 6755983, 4505027, 3393539 ####[facility] [address] [place] [address] CT Abdomen/Pelvis w/o Contra ston 05-11-2023 CT Abdomen/Pelvis w/o Contrast Normal [facility] Consent for Treatmenton 04-16 Consent for Treatment [id number] 37#1.00TIFF Normal [facility] Discharge Instructionson Discharge Instructions [id number] 81#1.00TIFF Normal [facility] ED Clinical Summaryon 2023 ED Clinical Summary Normal [facility] ED Note-Physicianon 05-11-19 ED Note-Physician Normal [facility] Comment on above: Result Comment: Elec tronically Signed By: Tiffani Cunningham PA-C.br\Date and Time Signed: 05/11/23 17:06 EDT\.br\Electronically Co-Signed By: Mateusz Garcia DO.br\Date and Time Co-Signed: 05/11/23 20:41 EDT ED Patient Education Noteon 05-11-2023 ED Patient Education Note Normal [facility] ED Patient Summaryon ED Patient Summary Normal [facility] HEMATOLOGYOrdered By: SYSTEM SYSTEM on [...] Lactic Acid Lvl 0.6 mmol/L Normal 0.5-2.2 [facility] Comment on above: Performed By: #### 2 715312, 14850932, 0507624, 2143003, 6500378, 4351457 ####[facility] [address] [place] [address] Lipase Levelon 05-11-2023 Lipase [Catalytic activity/Vol] 34 U/L Normal 13-58 [facility] Comment on above: Performed By: #### 2 003553, 40722298, 1843173, 7700489, 8432551, 3695416 ####[facility] [address] [place] [address] Magnesiumon 05-11-2023 Magnesium [Mass/Vol] 2.1 mg/dL Normal 1.3-2.4 [facility] Comment on above: Performed By: #### 2 168986, 58111082, 7419216, 4072833, 0403689, 1442554 ####[facility] [address] [place] [address] SEROLOGYOrdered By: Olga Meng on 05-11-2023 HCG.beta subunit (U) [Moles/Vol] Negative Normal [facility] Man Sero U BetaHcg Qualon 05-11-2023 HCG.beta subunit (U) [Moles/Vol] Negative Normal [facility] Comment on above: Performed By: #### 4 831542911, 76450398 ####[facility] [address] [place] [address] U Drug Screenon 05-11-2023 Amphetamines Screen method >1000 ng/mL Ql (U) Negative Normal NEGATIVE [facility] Comment on above: Result Comment: Nega tive Cutoff: <1000 ng/mL Performed By: #### 2 125568 ####[facility] [address] [place] [address] Barbiturates Screen Ql (U) Negative Normal NEGATIVE [facility] Comment on above: Result Comment: Nega tive Cutoff: <200 ng/mL Performed By: #### 2 156075 ####[facility] [address] [place] [address] Benzodiazepines Ql (U) Negative Normal NEGATIVE [facility] Comment on above: Result Comment: Nega tive Cutoff: <200 ng/mL Performed By: #### 2 948509 ####[facility] [address] [place] [address] Cannabinoids Screen Ql (U) Positive Abnormal NEGATIVE [facility] Comment on above: Result Comment: No C onfirmation Requested by PhysicianResult Verified by Repeat AnalysisUnconfirmed by an Alternate Methodcalled to Maribel Ortega by at 1404Negative Cutoff: <50 ng/mL Performed By: #### 2 488012 ####[facility] [address] [place] [address] Cocaine Ql (U) Negative Normal NEGATIVE [facility] Comment on above: Result Comment: Nega tive Cutoff: <300 ng/mL Performed By: #### 2 873007 ####[facility] [address] [place] [address] Opiates Screen Ql (U) Positive Abnormal NEGATIVE [facility] Comment on above: Result Comment: No C onfirmation Requested by PhysicianResult Verified by Repeat AnalysisUnconfirmed by an Alternate Methodcalled to Maribel Ortega by [id number] Cutoff: <300 ng/mL Performed By: #### 2 373857 ####[facility] [address] [place] [address] Phencyclidine Screen method >25 ng/mL Ql (U) Negative Normal NEGATIVE [facility] Comment on above: Result Comment: Nega tive Cutoff: <25 ng/mLThese drug screen results are to be used for medical (i.e., treatment) purposes only. Unconfirmed drug screening results must not be used for non-medical purposes (e.g., employment testing, legal testing). Performed By: #### 2 [address] ####[place] [address] UA with Cult Rflxon 05-11-19 24 Color (U) Light-Yellow Normal Yellow [facility] Comment on above: Result Comment: Micr oscopic readings are only performed on those samples that meet specific criteria set forth by [facility]. Performed By: #### 4 [id number], 29884896 ####[address] [place] [address] Glucose (U) [Mass/Vol] Negative Normal Negative [facility] Comment on above: Performed By: #### 4 431343617, 27801679 ####[facility] [address] [place] [address] Ketones Ql (U) Negative Normal Negative [facility] Comment on above: Performed By: #### 4 310083840, 02132819 ####[facility] [address] [place] [address] UA Blood Negative Normal Negative [facility] Comment on above: Performed By: #### 4 085918937, 72081058 ####[facility] [address] [place] [address] UA Clarity Clear Normal Clear [facility] Comment on above: Performed By: #### 4 306847021, 53970938 ####[address] [place] [address] UA Leuk Est Negative Normal Negative [facility] Comment on above: Performed By: #### 4 818987962, 21187463 ####[address] [address] UA Nitrite Negative Normal Negative [facility] Comment on above: Performed By: #### 4 364188008, 50139623 ####[address] [address] UA pH 7.5 Invalid Interpretation Code 5.0-9.0 [facility] Comment on above: Performed By: #### 4 595328774, 09927573 ####[address] [address] UA Protein Negative Normal Negative [facility] Comment on above: Performed By: #### 4 980250173, 89477752 ####[address] [address] UA Spec Grav 1.010 Invalid Interpretation Code 1.005-1.030 [facility] Comment on above: Performed By: #### 4 044204165, 80563652 ####[address] [address] UA Urobilinogen Negative Normal Negative [facility] Comment on above: Performed By: #### 4 548484718, 04939575 ####[address] [place] [address] Urobilinogen (U) [Mass/Vol] Negative Normal Negative [facility] Comment on above: Performed By: #### 4 322412499, 27729605 ####[address] [place] [address] UA Spec Desc Clean Catch Normal [facility] Comment on above: Performed By: #### 4 745930716, 85104236 ####[facility] [address] [place] [address] URINALYSISOrdered By: SYSTEM SYSTEM on 05-11-2023 Color (U) Light-Yellow 3 (05/11/23 12:41 PM) Normal Yellow [facility] UA Auto SS Comment on above: Interpretive Data: M icroscopic readings are only performed on those samples that meet specific criteria set forth by [facility]. Glucose (U) [Mass/Vol] Negative Normal Negativemg/dL FT UA Auto SS Ketones Ql (U) Negative Normal Negativemg/dL FT UA Auto SS UA Blood Negative Normal Negativemg/dL FT UA Aut o SS UA Clarity Clear (05/11/23 12:41 PM) Normal Clear [facility] UA Auto SS UA Leuk Est Negative Normal NegativeLeu/uL [facility] UA A uto SS UA Nitrite Negative [...] 05-11-2023 eGFR 99 mL/min/1.73 m2 Normal >=59 [facility] Comment on above: Order Comment: Order added by Discern Expert. Performed By: #### 2 397778, 66953664, 3425311, 7995357, 4023313, 1314751 ####[facility] [address] [place] [address] Ambulatory Visit Summaryon 0 05-10-2023 Ambulatory Visit Summary Normal [address] [place] [address] [place] [address]- \.br\ Medications\.br\ What How Much When Why [...] for choosing us for your care.\.br\ \.br\ [facility] CNPNon 05-10-2023 CNPN Normal [facility]/Clini c Noteon 05-10-2023 Family Medicine Office/Clinic Note Normal [facility] Comment on above: Result Comment: Elec tronically Signed By: Jaquan Paula\.br\Date and Time Signed: 05/10/23 14:35 EDT [facility] 2023 Home Health Records [id number] 80#1.00TIFF Normal [facility] Provider Letteron 05-10-2023 Provider Letter Normal [facility] B hCG Qualon 05-09-2023 Beta HCG ( test) Ql Negative Normal [facility] Comment on above: Performed By: #### 1 9726801, 08462438, 8890429, 2293084, 0528339, 0910281 ####[facility] [address] [place] [address] BMPon 05-09-2023 Anion gap [Moles/Vol] 12 mmol/L Normal 6-16 [facility] Comment on above: Performed By: #### 1 6958722, 06370399, 9911273, 1650743, 4807587, 4628426 ####[facility] [address] [place] [address] Calcium [Mass/Vol] 8.6 mg/dL Low 8.9-11.1 [facility] Comment on above: Performed By: #### 1 8480990, 30489140, 0946814, 8647977, 3988454, 4862366 ####[facility] [address] [place] [address] Chloride [Moles/Vol] 109 mmol/L Normal 101-111 [facility] Comment on above: Performed By: #### 1 9388808, 12146912, 0971066, 5788762, 9118506, 9999295 ####[facility] [address] [place] [address] CO2 [Moles/Vol] 23 mmol/L Normal 21-31 [facility] Comment on above: Performed By: #### 1 1204663, 59134076, 3929169, 0074148, 3209612, 5640962 ####[facility] [address] [place] [address] Creatinine [Mass/Vol] 0.8 mg/dL Normal 0.5-1.3 [facility] Comment on above: Performed By: #### 1 0476568, 77484252, 0944869, 2871939, 7266639, 9114826 ####[facility] [address] [place] [address] Glucose [Mass/Vol] 79 mg/dL Normal 55-199 [facility] Comment on above: Performed By: #### 1 2283693, 56860560, 3148278, 2783986, 8132210, 6066325 ####[facility] [address] [place] [address] Potassium [Moles/Vol] 3.9 mmol/L Normal 3.5-5.3 [facility] Comment on above: Performed By: #### 1 4834173, 19197759, 6712154, 1787232, 6213163, 4623995 ####[address] [place] [address] Sodium [Moles/Vol] 140 mmol/L Normal 135-145 [facility] Comment on above: Performed By: #### 1 2997424, 79383213, 9175313, 0337048, 9142296, 2638581 ####[facility] [address] [place] [address] Urea nitrogen [Mass/Vol] 9 mg/dL Normal 5-21 [facility] Comment on above: Performed By: #### 1 5401579, 12817290, 1906152, 6894362, 5912772, 4944969 ####[facility] [address] [place] [address] Urea nitrogen/Creatinine [Mass ratio] 11 No Units Normal 10-20 [facility] Comment on above: Performed By: #### 1 9040844, 44827865, 8430478, 1677148, 5477435, 1268615 ####[facility] [address] [place] [address] CBC w/ Auto Diffon 4 Basophils/100 WBC (Bld) 1.1 % Normal 0.0-2.0 [facility] Comment on above: Performed By: #### 1 5613581, 04202941, 2273974, 5102475, 9045629, 3528195 ####[address] [place] [address] Basophils/Leukocyte s Auto (Bld) [Pure # fraction] 0.0 E9/L Normal 0.0-0.2 [facility] Comment on above: Performed By: #### 1 7357239, 89950254, 5444856, 2757865, 1078442, 3571898 ####[address] [address] Eosinophils (Bld) [#/Vol] 0.1 E9/L Normal 0.0-0.5 [facility] Comment on above: Performed By: #### 1 7203347, 80455049, 4196315, 4394946, 1137744, 9047524 ####[address] [address] Eosinophils/100 WBC (Bld) 2.1 % Normal 0.0-8.0 [facility] Comment on above: Performed By: #### 1 2709186, 75052734, 3193284, 6804824, 8545990, 4259731 ####[address] [address] Erythrocyte distribution width (RBC) [Ratio] 14.4 % High 10.9-14.2 [facility] Comment on above: Performed By: #### 1 8628617, 06676598, 8047032, 8709949, 8845264, 8977205 ####[address] [address] Hematocrit (Bld) [Volume fraction] 36.3 % Normal 34.0-46.0 [facility] Comment on above: Performed By: #### 1 2311775, 56013766, 7580790, 8036547, 1830903, 6650531 ####[address] [address] Hemoglobin (Bld) [Mass/Vol] 12.3 g/dL Normal 12.0-16.0 [facility] Comment on above: Performed By: #### 1 0398872, 29753898, 5512454, 5577098, 6646037, 8307390 ####[address] [address] Lymphocytes (Bld) [#/Vol] 1.2 E9/L Normal 1.0-4.0 [facility] Comment on above: Performed By: #### 1 5464599, 88563916, 0884098, 1241069, 8510063, 9254742 ####[address] [address] Lymphocytes/100 WBC (Bld) 42.2 % Normal 14.0-50.0 [facility] Comment on above: Performed By: #### 1 4101976, 19117033, 1520967, 5595582, 5206914, 3163332 ####[address] [address] MCH (RBC) [Entitic mass] 30.2 pg Normal 27.0-34.0 [facility] Comment on above: Performed By: #### 1 0394168, 30299765, 1470784, 4342237, 7256463, 4452511 ####[address] [address] MCHC (RBC) [Mass/Vol] 33.9 g/dL Normal 31.4-36.0 [facility] Comment on above: Performed By: #### 1 0232123, 89716855, 0275554, 1835199, 0668193, 7839669 ####[address] [address] MCV (RBC) [Entitic vol] 89.2 fL Normal 80.0-100.0 [facility] Comment on above: Performed By: #### 1 0136850, 85215097, 7854871, 3898657, 1348852, 6386336 ####[address] [address] Monocytes (Bld) [#/Vol] 0.3 E9/L Normal 0.2-1.0 [facility] Comment on above: Performed By: #### 1 7554212, 81555935, 8116333, 8837529, 1693993, 6037810 ####[facility] [address] [place] [address] Neutrophils (Bld) [#/Vol] 1.2 E9/L Low 2.0-7.5 [facility] Comment on above: Performed By: #### 1 5578540, 61319189, 5397771, 1267391, 8267780, 7593989 ####[address] [place] [address] Neutrophils/100 WBC (Bld) 44.3 % Normal 36.0-75.0 [facility] Comment on above: Performed By: #### 1 7915480, 36707129, 4239138, 1190515, 5062718, 6260604 ####[address] [address] Platelet 201.0 E9/L Normal 150.0-500.0 [facility] Comment on above: Performed By: #### 1 5649934, 01906081, 7431827, 3839619, 1860958, 1358178 ####[address] [address] Platelet mean volume (Bld) [Entitic vol] 9.8 fL Normal 6.4-10.8 [facility] Comment on above: Performed By: #### 1 6496056, 49033041, 1969876, 0634642, 9901442, 6073473 ####[facility] [address] [place] [address] RBC (Bld) [#/Vol] 4.1 E12/L Low 4.3-5.9 [facility] Comment on above: Performed By: #### 1 4854668, 34961009, 8711398, 5470485, 9668807, 3583840 ####[facility] [address] [place] [address] WBC corrected for nucl RBC Auto (Bld) [#/Vol] 2.8 E9/L Low 4.0-11.0 [facility] Comment on above: Performed By: #### 1 0394076, 91650615, 4203606, 2720244, 8139621, 4625586 ####[facility] [address] [place] [address] CHEMISTRYOrdered By: SYSTEM SYSTEM on 05-09-2023 Albumin [...] for Treatmenton 04-16 Consent for Treatment [id number] E0#1.00TIFF Normal [facility] Discharge Instructionson Discharge Instructions [id number] 14#1.00TIFF Normal [facility] ED Clinical Summaryon 2023 ED Clinical Summary Normal [facility] ED Note-Nursingon 05-09-2023 ED Note-Nursing Discharge materials given, wheeled patient out. Home with family care. Normal [facility] ED Note-Physicianon 05-09-19 ED Note-Physician Normal [facility] Comment on above: Result Comment: Elec tronically Signed By: Lonnie Rios PA-C\.br\Date and Time Signed: 05/09/23 15:52 EDT\.br\Electronically Co-Signed By: Mateusz Garcia DO\.br\Date and Time Co-Signed: 05/09/23 17:19 EDT ED Patient Education Noteon 05-09-2023 ED Patient Education Note Normal [facility] ED Patient Summaryon 024 ED Patient Summary Normal [facility] HEMATOLOGYOrdered By: SYSTEM SYSTEM on [...] 05-09-2023 Albumin [Mass/Vol] 4.3 g/dL Normal 3.3-5.0 [facility] Comment on above: Performed By: #### 1 4543678, 52257520, 2234129, 6812852, 8341608, 2811925 ####[facility] [address] [place] [address] Albumin/Globulin (S) [Mass conc ratio] 1.8 Normal 1.1-2.2 [facility] Comment on above: Performed By: #### 1 5527465, 16594333, 4110129, 0576832, 7342778, 9533339 ####[facility] [address] [place] [address] ALP [Catalytic activity/Vol] 51 Int._Unit/L Normal 21-98 [facility] Comment on above: Performed By: #### 1 5072984, 00626663, 1928383, 1720738, 7133248, 8672459 ####[facility] [address] [place] [address] ALT No additional P-5'-P [Catalytic activity/Vol] 15 Int._Unit/L Normal 6-46 [facility] Comment on above: Performed By: #### 1 7222030, 11486981, 7371540, 2819056, 0390231, 7603228 ####[facility] [address] [place] [address] AST [Catalytic activity/Vol] 26 Int._Unit/L Normal 5-43 [facility] Comment on above: Performed By: #### 1 4708418, 57589871, 0511883, 5907641, 1534141, 0045091 ####[facility] [address] [place] [address] Bilirubin [Mass/Vol] 0.3 mg/dL Normal 0.0-1.1 [facility] Comment on above: Performed By: #### 1 6880996, 10025795, 4100852, 9873201, 6465140, 7607025 ####[facility] [address] [place] [address] Bilirubin.direct [Mass/Vol] 0.1 mg/dL Normal 0.0-0.4 [facility] Comment on above: Performed By: #### 1 4433215, 95660516, 1498781, 4806612, 8266808, 4079235 ####[facility] [address] [place] [address] Bilirubin.indirect [Mass or moles/Vol] 0.2 mg/dL Normal 0.1-0.9 [facility] Comment on above: Performed By: #### 1 5885037, 53594324, 8266913, 2481332, 2187755, 2775394 ####[address] [address] Globulin (S) [Mass/Vol] 2.4 g/dL Normal 1.4-4.0 [facility] Comment on above: Performed By: #### 1 3211917, 91346410, 5211745, 9488016, 4749218, 3418613 ####[address] [address] Protein [Mass/Vol] 6.7 g/dL Normal 6.0-7.8 [facility] Comment on above: Performed By: #### 1 3591197, 11452827, 7738064, 2368740, 0413121, 9335648 ####[facility] [address] [place] [address] Lipase Levelon 05-09-2023 Lipase [Catalytic activity/Vol] 68 U/L High 13-58 [facility] Comment on above: Performed By: #### 1 7794893, 74081332, 6045069, 5570770, 5495523, 2884338 ####[address] [place] [address] SEROLOGYOrdered By: Stacia Arroyo on 05-09-2023 Beta HCG ( test) Ql Negative (05/09/23 12:12 PM) Normal [facility] Man Sero eGFRon 05-09-2023 eGFR 99 mL/min/1.73 m2 Normal >=59 [facility] Comment on above: Order Comment: Order added by Discern Expert. Performed By: #### 1 9543917, 18300159, 9816431, 8891311, 2491474, 4465350 ####[facility] [address] [place] [address] CNPNon 05-07-2023 CNPN Normal [facility] ED Note-Physicianon 05-07-19 ED Note-Physician Normal [facility] Comment on above: Result Comment: Elec tronically Signed By: Justine German PA-C\.br\Date and Time Signed: 05/06/23 21:25 EDT\.br\Electronically Co-Signed By: Mateusz Gracia DO\.br\Date and Time Co-Signed: 05/07/23 07:00 EDT Amylaseon 05-06-2023 Amylase [Catalytic activity/Vol] 40 U/L Normal 25-157 [facility] Comment on above: Order Comment: pt wa s poked once, pt extremely dehydrated and would like to wait for IV start [id number] 05/06/2023 16:33:00 EDT Performed By: #### 2 615532, 1557317, 1161210, 49848684, 6687474, 2238937, 1169186 ####[facility] [address] [place] [address] BMPon 05-06-2023 Anion gap [Moles/Vol] 13 mmol/L Normal 6-16 [facility] Comment on above: Order Comment: pt wa s poked once, pt extremely dehydrated and would like to wait for IV start [id number] 05/06/2023 16:33:00 EDT Performed By: #### 2 087728, 5234649, 9668059, 94017111, 3255481, 1694541, 4525045 ####[facility] [address] [place] [address] Calcium [Mass/Vol] 9.1 mg/dL Normal 8.9-11.1 [facility] Comment on above: Order Comment: pt lillian cruz poked once, pt extremely dehydrated and would like to wait for IV start [id number] 05/06/2023 16:33:00 EDT Performed By: #### 2 218935, 4471015, 8722084, 54361981, 3819277, 7154794, 9020382 ####[facility] [address] [place] [address] Chloride [Moles/Vol] 107 mmol/L Normal 101-111 [facility] Comment on above: Order Comment: pt lillian cruz poked once, pt extremely dehydrated and would like to wait for IV start [id number] 05/06/2023 16:33:00 EDT Performed By: #### 2 614221, 4181340, 6508721, 75205516, 1259800, 4871288, 8115171 ####[facility] [address] [place] [address] CO2 [Moles/Vol] 22 mmol/L Normal 21-31 [facility] Comment on above: Order Comment: pt lillian cruz poked once, pt extremely dehydrated and would like to wait for IV start [id number] 05/06/2023 16:33:00 EDT Performed By: #### 2 017394, 8112070, 7081065, 59027752, 5709298, 8778553, 5209519 ####[facility] [address] [place] [address] Creatinine [Mass/Vol] 0.8 mg/dL Normal 0.5-1.3 [facility] Comment on above: Order Comment: pt lillian cruz poked once, pt extremely dehydrated and would like to wait for IV start [id number] 05/06/2023 16:33:00 EDT Performed By: #### 2 601124, 9805210, 3008597, 98574630, 4881462, 0851908, 6024800 ####[facility] [address] [place] [address] Glucose [Mass/Vol] 80 mg/dL Normal 55-199 [facility] Comment on above: Order Comment: pt lillian cruz poked once, pt extremely dehydrated and would like to wait for IV start mye586 05/06/2023 16:33:00 EDT Performed By: #### 2 256780, 4091073, 4768364, 08369033, 0552008, 0837299, 4280577 ####[facility] [address] [place] [address] Potassium [Moles/Vol] 3.7 mmol/L Normal 3.5-5.3 [facility] Comment on above: Order Comment: pt lillian cruz poked once, pt extremely dehydrated and would like to wait for IV start [id number] 05/06/2023 16:33:00 EDT Performed By: #### 2 968251, 0933456, 1207067, 49202651, 9367594, 1203915, 2939592 ####[facility] [address] [place] [address] Sodium [Moles/Vol] 138 mmol/L Normal 135-145 [facility] Comment on above: Order Comment: pt lillian cruz poked once, pt extremely dehydrated and would like to wait for IV start [id number] 05/06/2023 16:33:00 EDT Performed By: #### 2 485288, 8771731, 4825023, 28864606, 2224413, 2484575, 4089439 ####[facility] [address] [place] [address] Urea nitrogen [Mass/Vol] 10 mg/dL Normal 5-21 [facility] Comment on above: Order Comment: pt lillian cruz poked once, pt extremely dehydrated and would like to wait for IV start yws995 05/06/2023 16:33:00 EDT Performed By: #### 2 354475, 3217194, 8590358, 72437269, 2712170, 5091121, 8662131 ####[facility] [address] [place] [address] Urea nitrogen/Creatinine [Mass ratio] 12 No Units Normal 10-20 [facility] Comment on above: Order Comment: pt lillian cruz poked once, pt extremely dehydrated and would like to wait for IV start [id number] 05/06/2023 16:33:00 EDT Performed By: #### 2 455225, 1666667, 2232885, 89997871, 8644282, 4536563, 7194146 ####[facility] [address] [place] [address] CBC w/ Auto Diffon 4 Basophils/100 WBC (Bld) 1.1 % Normal 0.0-2.0 [facility] Comment on above: Order Comment: pt lillian cruz poked once, pt extremely dehydrated and would like to wait for IV start [id number] 05/06/2023 16:33:00 EDT Performed By: #### 2 191729, 0475632, 6172150, 65549631, 8983326, 1083806, 6735040 ####[address] [address] Basophils/Leukocyte s Auto (Bld) [Pure # fraction] 0.0 E9/L Normal 0.0-0.2 [facility] Comment on above: Order Comment: pt lillian cruz poked once, pt extremely dehydrated and would like to wait for IV start [id number] 05/06/2023 16:33:00 EDT Performed By: #### 2 820740, 8864899, 3260176, 04459468, 6735902, 0354027, 1141923 ####[facility] [address] [place] [address] Eosinophils (Bld) [#/Vol] 0.1 E9/L Normal 0.0-0.5 [facility] Comment on above: Order Comment: pt lillian cruz poked once, pt extremely dehydrated and would like to wait for IV start [id number] 05/06/2023 16:33:00 EDT Performed By: #### 2 931877, 8696064, 2693506, 41571280, 5709766, 6112716, 6450051 ####[facility] [address] [place] [address] Eosinophils/100 WBC (Bld) 1.5 % Normal 0.0-8.0 [facility] Comment on above: Order Comment: pt lillian s poked once, pt extremely dehydrated and would like to wait for IV start uak161 05/06/2023 16:33:00 EDT Performed By: #### 2 768316, 7015663, 3433023, 23348948, 7624391, 6446650, 1621321 ####[facility] [address] [place] [address] Erythrocyte distribution width (RBC) [Ratio] 14.1 % Normal 10.9-14.2 [facility] Comment on above: Order Comment: pt lillian s poked once, pt extremely dehydrated and would like to wait for IV start zox992 05/06/2023 16:33:00 EDT Performed By: #### 2 737459, 4473942, 9534647, 44176280, 5358862, 1858743, 6200350 ####[address] [address] Hematocrit (Bld) [Volume fraction] 37.9 % Normal 34.0-46.0 [facility] Comment on above: Order Comment: pt lillian s poked once, pt extremely dehydrated and would like to wait for IV start [id number] 05/06/2023 16:33:00 EDT Performed By: #### 2 758394, 8388018, 0461173, 67899793, 8915672, 4810316, 7579939 ####[facility] [address] [place] [address] Hemoglobin (Bld) [Mass/Vol] 12.9 g/dL Normal 12.0-16.0 [facility] Comment on above: Order Comment: pt lillian s poked once, pt extremely dehydrated and would like to wait for IV start cyc843 05/06/2023 16:33:00 EDT Performed By: #### 2 230786, 2990186, 3112732, 62791628, 6149050, 1721150, 1080436 ####[facility] [address] [place] [address] Lymphocytes (Bld) [#/Vol] 1.4 E9/L Normal 1.0-4.0 [facility] Comment on above: Order Comment: pt lillian cruz poked once, pt extremely dehydrated and would like to wait for IV start [id number] 05/06/2023 16:33:00 EDT Performed By: #### 2 886101, 3019513, 2909812, 45891965, 2086140, 9866803, 9756617 ####[facility] [address] [place] [address] Lymphocytes/100 WBC (Bld) 33.8 % Normal 14.0-50.0 [facility] Comment on above: Order Comment: pt lillian cruz poked once, pt extremely dehydrated and would like to wait for IV start vla593 05/06/2023 16:33:00 EDT Performed By: #### 2 149307, 1139824, 9729818, 41592323, 1852038, 0551714, 8492698 ####[facility] [address] [place] [address] MCH (RBC) [Entitic mass] 30.3 pg Normal 27.0-34.0 [facility] Comment on above: Order Comment: pt lillian cruz poked once, pt extremely dehydrated and would like to wait for IV start pez347 05/06/2023 16:33:00 EDT Performed By: #### 2 652171, 3279308, 1472349, 77115207, 1215684, 8332523, 6064606 ####[facility] [address] [place] [address] MCHC (RBC) [Mass/Vol] 34.1 g/dL Normal 31.4-36.0 [facility] Comment on above: Order Comment: pt lillian cruz poked once, pt extremely dehydrated and would like to wait for IV start imy121 05/06/2023 16:33:00 EDT Performed By: #### 2 392009, 8893370, 8769535, 61983018, 9839360, 9468128, 8592359 ####[facility] [address] [place] [address] MCV (RBC) [Entitic vol] 88.8 fL Normal 80.0-100.0 [facility] Comment on above: Order Comment: pt wa s poked once, pt extremely dehydrated and would like to wait for IV start syw247 05/06/2023 16:33:00 EDT Performed By: #### 2 615936, 8252605, 8352728, 10010470, 9419007, 7657105, 2949422 ####[facility] [address] [place] [address] Monocytes (Bld) [#/Vol] 0.3 E9/L Normal 0.2-1.0 [facility] Comment on above: Order Comment: pt wa s poked once, pt extremely dehydrated and would like to wait for IV start obu820 05/06/2023 16:33:00 EDT Performed By: #### 2 812564, 1332946, 7186797, 95420076, 1367019, 4322916, 2543257 ####[facility] [address] [place] [address] Neutrophils (Bld) [#/Vol] 2.3 E9/L Normal 2.0-7.5 [facility] Comment on above: Order Comment: pt wa s poked once, pt extremely dehydrated and would like to wait for IV start lzj758 05/06/2023 16:33:00 EDT Performed By: #### 2 835982, 9976976, 8534818, 19914872, 8979826, 4172068, 5179832 ####[facility] [address] [place] [address] Neutrophils/100 WBC (Bld) 56.4 % Normal 36.0-75.0 [facility] Comment on above: Order Comment: pt wa s poked once, pt extremely dehydrated and would like to wait for IV start wxh115 05/06/2023 16:33:00 EDT Performed By: #### 2 125423, 0857631, 1428211, 70722687, 2175854, 0781689, 0401835 ####[facility] [address] [place] [address] Platelet mean volume (Bld) [Entitic vol] 9.2 fL Normal 6.4-10.8 [facility] Comment on above: Order Comment: pt wa s poked once, pt extremely dehydrated and would like to wait for IV start wyv056 05/06/2023 16:33:00 EDT Performed By: #### 2 089640, 5805271, 6790108, 59035653, 5826455, 1086290, 4262425 ####[facility] [address] [place] [address] Platelets (Bld) [#/Vol] 192.0 E9/L Normal 150.0-500.0 [facility] Comment on above: Order Comment: pt wa s poked once, pt extremely dehydrated and would like to wait for IV start cbb157 05/06/2023 16:33:00 EDT Performed By: #### 2 689718, 2563898, 3301594, 40802491, 6251272, 2565220, 2203343 ####[address] [address] RBC (Bld) [#/Vol] 4.3 E12/L Normal 4.3-5.9 [facility] Comment on above: Order Comment: pt wa s poked once, pt extremely dehydrated and would like to wait for IV start [id number] 05/06/2023 16:33:00 EDT Performed By: #### 2 884215, 9862778, 0912296, 41542054, 6552637, 2238205, 2273183 ####[facility] [address] [place] [address] WBC corrected for nucl RBC Auto (Bld) [#/Vol] 4.1 E9/L Normal 4.0-11.0 [facility] Comment on above: Order Comment: pt wa s poked once, pt extremely dehydrated and would like to wait for IV start [id number] 05/06/2023 16:33:00 EDT Performed By: #### 2 080645, 1018619, 6796910, 02539309, 0968153, 5770460, 0829253 ####[facility] [address] [place] [address] CHEMISTRYOrdered By: SYSTEM SYSTEM on 05-06-2023 Albumin [...] for Treatmenton 04-16 Consent for Treatment [id number] 11#1.00TIFF Normal [facility] Discharge Instructionson Discharge Instructions [id number] 616#1.00TIFF Normal [facility] ED Clinical Summaryon 2023 ED Clinical Summary Normal [facility] ED Patient Education Noteon 05-06-2023 ED Patient Education Note Normal [facility] ED Patient Summaryon 024 ED Patient Summary Normal [facility] HEMATOLOGYOrdered By: SYSTEM SYSTEM on [...] 05-06-2023 Albumin [Mass/Vol] 4.6 g/dL Normal 3.3-5.0 [facility] Comment on above: Order Comment: pt wa s poked once, pt extremely dehydrated and would like to wait for IV start [id number] 05/06/2023 16:33:00 EDT Performed By: #### 2 965918, 0626449, 3693705, 90027573, 4234534, 8727131, 0216175 ####[facility] [address] [place] [address] Albumin/Globulin (S) [Mass conc ratio] 1.8 Normal 1.1-2.2 [facility] Comment on above: Order Comment: pt wa s poked once, pt extremely dehydrated and would like to wait for IV start [id number] 05/06/2023 16:33:00 EDT Performed By: #### 2 567637, 2295368, 2007092, 48668660, 8834126, 0762817, 3417156 ####[facility] [address] [place] [address] ALP [Catalytic activity/Vol] 56 Int._Unit/L Normal 21-98 [facility] Comment on above: Order Comment: pt wa s poked once, pt extremely dehydrated and would like to wait for IV start zel666 05/06/2023 16:33:00 EDT Performed By: #### 2 556955, 3775233, 7582220, 76277898, 0513964, 2494905, 6463582 ####[facility] [address] [place] [address] ALT No additional P-5'-P [Catalytic activity/Vol] 14 Int._Unit/L Normal 6-46 [facility] Comment on above: Order Comment: pt wa s poked once, pt extremely dehydrated and would like to wait for IV start pet532 05/06/2023 16:33:00 EDT Performed By: #### 2 913802, 8880632, 2458020, 50109293, 6064818, 2436611, 6862774 ####[facility] [address] [place] [address] AST [Catalytic activity/Vol] 25 Int._Unit/L Normal 5-43 [facility] Comment on above: Order Comment: pt wa s poked once, pt extremely dehydrated and would like to wait for IV start [id number] 05/06/2023 16:33:00 EDT Performed By: #### 2 383476, 0099457, 3223539, 02179098, 8593219, 7560210, 6417879 ####[facility] [address] [place] [address] Bilirubin [Mass/Vol] 0.5 mg/dL Normal 0.0-1.1 [facility] Comment on above: Order Comment: pt wa s poked once, pt extremely dehydrated and would like to wait for IV start lxu112 05/06/2023 16:33:00 EDT Performed By: #### 2 874031, 1053772, 5072852, 92308770, 2195379, 5712974, 0075955 ####[facility] [address] [place] [address] Bilirubin.direct [Mass/Vol] 0.1 mg/dL Normal 0.0-0.4 [facility] Comment on above: Order Comment: pt wa s poked once, pt extremely dehydrated and would like to wait for IV start [id number] 05/06/2023 16:33:00 EDT Performed By: #### 2 811999, 9077127, 2999153, 68091933, 1355928, 0149880, 2959739 ####[facility] [address] [place] [address] Bilirubin.indirect [Mass or moles/Vol] 0.4 mg/dL Normal 0.1-0.9 [facility] Comment on above: Order Comment: pt wa s poked once, pt extremely dehydrated and would like to wait for IV start ozw517 05/06/2023 16:33:00 EDT Performed By: #### 2 247704, 6909628, 1670719, 08243914, 5623208, 1373381, 6311264 ####[facility] [address] [place] [address] Globulin (S) [Mass/Vol] 2.5 g/dL Normal 1.4-4.0 [facility] Comment on above: Order Comment: pt lillian cruz poked once, pt extremely dehydrated and would like to wait for IV start [id number] 05/06/2023 16:33:00 EDT Performed By: #### 2 684071, 3749030, 8631724, 12631049, 6305275, 7144904, 1083211 ####[facility] [address] [place] [address] Protein [Mass/Vol] 7.1 g/dL Normal 6.0-7.8 [facility] Comment on above: Order Comment: pt lillian cruz poked once, pt extremely dehydrated and would like to wait for IV start [id number] 05/06/2023 16:33:00 EDT Performed By: #### 2 934313, 6752771, 3776106, 47421286, 4666325, 1423361, 9853815 ####[facility] [address] [place] [address] Lactic Acidon 05-06-2023 Lactic Acid Lvl 0.7 mmol/L Normal 0.5-2.2 [facility] Comment on above: Order Comment: pt lillian cruz poked once, pt extremely dehydrated and would like to wait for IV start zzb100 05/06/2023 16:33:00 EDT Performed By: #### 2 925129, 2193885, 4985329, 07863899, 2277256, 0851829, 6799382 ####[facility] [address] [place] [address] Lipase Levelon 05-06-2023 Lipase [Catalytic activity/Vol] 62 U/L High 13-58 [facility] Comment on above: Order Comment: pt lillian s poked once, pt extremely dehydrated and would like to wait for IV start apr885 05/06/2023 16:33:00 EDT Performed By: #### 2 756972, 4393023, 1714866, 47925508, 7007338, 7936751, 8125871 ####[facility] [address] [place] [address] Monitor Recordon 05-06-2023 Monitor Record [id number] 932#1.00TIFF Normal [facility] Monitor Record [id number] 260#1.00TIFF Normal [facility] Monitor Record [id number] 669#1.00TIFF Normal [facility] Monitor Record [id number] 349#1.00TIFF Normal [facility] eGFRon 05-06-2023 eGFR 99 mL/min/1.73 m2 Normal >=59 [facility] Comment on above: Order Comment: Order added by Discern Expert. Performed By: #### 2 501108, 3596947, 1603025, 78160724, 2133631, 8983794, 3003221 ####[facility] [address] [place] [address] ED Note-Physicianon 04-07-19 ED Note-Physician [id number] 6D#1.00TIFF [facility] Alanine aminotransferase [En zymatic activity/volume] in Serum or PlasmaOrdered By: Trace Bullimore on 04-06-2023 ALT [Catalytic activity/Vol] 21 U/L Normal 7-52 [facility] Comment on above: Performed By: #### A CORY, [facility] [place] #### [facility] [address] Albumin [Mass/volume] in Ser um or Plasma by Bromocresol green (BCG) dye binding methoOrdered By: Trace Bullimore on 04-06-2023 Albumin BCG dye [Mass/Vol] 4.5 g/dL 3.5-5.7 [facility] Alkaline phosphatase [Enzyma tic activity/volume] in Serum or PlasmaOrdered By: Trace Bullimore on 04-06-2023 ALP [Catalytic activity/Vol] 48 U/L Normal 34-104 [facility] Comment on above: Performed By: #### A DDFAIZAUAJESSICA, CG, CUU #### [address] Amylase [Enzymatic activity/ volume] in Serum or PlasmaOrdered By: Trace Bullimore on 04-06-2023 Amylase [Catalytic activity/Vol] 48 U/L Normal 29-103 [facility] Comment on above: Performed By: #### A MALLORIEUAJESSICA, [facility], [facility] #### [address] Aspartate aminotransferase [ Enzymatic activity/volume] in Serum or PlasmaOrdered By: Trace Bullimore on 04-06-2023 AST [Catalytic activity/Vol] 28 U/L Normal 13-39 [facility] Comment on above: Performed By: #### A CORY, ElroyG, CUU #### [address] Automated basophil %Ordered By: Trace Lowery on 04-06-2023 Basophils/100 WBC (Bld) 1.0 % Normal . [facility] Comment on above: Performed By: #### L IPASE, HEPATIC, RAEGAN, CBC, BMP #### [address] Automated basophil countOrde red By: Trace Lowery on 04-06-2023 Basophils (Bld) [#/Vol] 0.0 10*3/uL Normal 0.0-0.2 [facility] Comment on above: Result Comment: PERF ORMED BY: [place] [address] PATHOLOGIST [employer] BAUTISTA BAKER M.D. Performed By: #### L IPASE, HEPATIC, RAEGAN, CBC, BMP #### [address] Automated blood monocyte cou ntOrdered By: Trace Dericimlaurel on 04-06-2023 Monocytes (Bld) [#/Vol] 0.3 10*3/uL Normal 0.0-0.8 [facility] Comment on above: Performed By: #### L IPASE, HEPATIC, RAEGAN, CBC, BMP #### [place] [facility] [address] Automated eosinophil %Ordere d By: Trace Dericimore on 04-06-2023 Eosinophils/100 WBC (Bld) 3.1 % Normal . [facility] Comment on above: Performed By: #### L IPASE, HEPATIC, RAEGAN, CBC, BMP #### [address] Automated eosinophil countOr dered By: Trace Dericimore on 04-06-2023 Eosinophils (Bld) [#/Vol] 0.1 10*3/uL Normal 0.0-0.45 [facility] Comment on above: Performed By: #### L IPASE, HEPATIC, RAEGAN, CBC, BMP #### [address] Automated erythrocytes count in urine sediment (number/area)Ordered By: Trace Bullimore on 04-06-2023 RBC Auto (Urine sed) [#/Area] 1-2 [HPF] 0-4 [facility] Automated leukocytes count i n urine sediment (number/area)Ordered By: Trace Bullimore on 04-06-2023 WBC Auto (Urine sed) [#/Area] 3-4 [HPF] 0-4 [facility] Automated monocyte %Ordered By: Trace Dericimore on 04-06-2023 Monocytes/100 WBC (Bld) 6.7 % Normal . [facility] Comment on above: Performed By: #### L IPASE, HEPATIC, RAEGAN, CBC, BMP #### [facility] [address] [place] [address] Automated neutrophil %Ordere d By: Trace Bullimore on 04-06-2023 Neutrophils/100 WBC (Bld) 51.6 % Normal . [facility] Comment on above: Performed By: #### L IPASE, HEPATIC, RAEGAN, CBC, BMP #### [address] Automated urine color determ inationOrdered By: Trace Dericimore on 04-06-2023 Color (U) Yellow Normal Yellow [facility] Comment on above: Order Comment: Name Collection Type:: Clean-Voided Midstream Performed By: #### H EPATIC, MG, LIPASE, CMP, CBC #### [facility] [address] Basic Metabolic Panelon 03-19 Creatinine Clr Calc Pharmacy 98.98 Normal [facility] Comment on above: Performed By: #### A CORY, CG, CUU #### [address] GFR/1.73 sq M.predicted MDRD (S/P/Bld) [Vol rate/Area] mL/min/{1.73_m2} Normal [facility] Comment on above: Performed By: #### A CORY, ALIYAHG, CUU #### [address] Bilirubin Test strip Ql (U)O rdered By: Trace Lowery on 04-06-2023 Bilirubin Ql (U) Negative Negative [facility] Bilirubin.direct [Mass/volum e] in Serum or PlasmaOrdered By: Trace Bullimore on 04-06-2023 Bilirubin.direct [Mass/Vol] 0.10 mg/dL 0.03-0.18 [facility] Bilirubin.total [Mass/volume ] in Serum or PlasmaOrdered By: Trace Bullimore on 04-06-2023 Bilirubin [Mass/Vol] 0.4 mg/dL Normal 0.3-1.0 [facility] Comment on above: Performed By: #### A DDFAIZAUAJESSICA, CG, CUU #### [address] abdomen pelvis w conon CT abdomen pelvis w con [facility] [address] [place] [address] [place] [address] CT Scan Report Signed Patient: Abbey Garcia MR#: [id number] : 1990 Acct:[id number] Age/Sex: 33 / F ADM Date: 04/06/23 Loc: ER Room: Type: [facility] ER Attending Dr: Copies to: AGA Sy [...] Maricruz Hutchinson M.D.04/06/2023 1:50 PM Dictation Location: [place] [address] Transcribed By: SULEMA 04/06/23 1350 Dictated By: Maricruz Hutchinson MD 04/06/23 1341 Signed By: 04/06/23 1350 Normal [facility] Calcium [Mass/volume] in Ser um or PlasmaOrdered By: Trace Bullimore on 04-06-2023 Calcium [Mass/Vol] 9.1 mg/dL Normal 8.6-10.3 [facility] Comment on above: Performed By: #### A NISHONUAJESSICA, ALIYAHG, CUU #### [address] Carbon dioxide, total [Moles /volume] in Serum or PlasmaOrdered By: Trace Bullimore on 04-06-2023 CO2 [Moles/Vol] 23.3 mmol/L Normal 21.0-31.0 [facility] Comment on above: Performed By: #### A MALLORIEUAJOSESITO LOPEZ, CUU #### [address] Chloride [Moles/volume] in S elder or PlasmaOrdered By: Trace Bullimore on 04-06-2023 Chloride [Moles/Vol] 109 mmol/L High 98-107 [facility] Comment on above: Performed By: #### A CORY, JOSESITO, CUU #### [address] Complete Blood Count Auto Di ffon 04-06-2023 Mean Corpuscular HGB Conc 34.2 g/dL Normal 32.0-35.0 [facility] Comment on above: Performed By: #### L IPASE, HEPATIC, RAEGAN, CBC, BMP #### [place] [address] [place] Monocytes/100 WBC (Bld) 15.98 % Normal 0.00-20.00 [facility] Comment on above: Performed By: #### L IPASE, HEPATIC, RAEGAN, CBC, BMP #### [place] [address] [place] NRBC% 0.1 /100{WBC} Normal 0-0.5 [facility] Comment on above: Performed By: #### L IPASE, HEPATIC, RAEGAN, CBC, BMP #### [place] [address] [place] Creatinine [Mass/volume] in Serum or PlasmaOrdered By: Trace Lowery on 04-06-2023 Creatinine [Mass/Vol] 0.86 mg/dL Normal 0.60-1.20 [facility] Comment on above: Performed By: #### A DDONUAPLUS, UHCG, CUU #### [address] Dipstick and Microscopicon 0 04-06-2023 Appearance (U) Cloudy Critically abnormal Clear [facility] Comment on above: Order Comment: Name Collection Type:: Clean-Voided Midstream Performed By: #### H EPATIC, MG, LIPASE, CMP, CBC #### [address] Bacteria,Urine None Seen Normal None Seen [facility] Comment on above: Order Comment: Name Collection Type:: Clean-Voided Midstream Performed By: #### H EPATIC, MG, LIPASE, CMP, CBC #### [address] Bilirubin,Urine Negative Normal Negative [facility] Comment on above: Order Comment: Name Collection Type:: Clean-Voided Midstream Performed By: #### H EPATIC, MG, LIPASE, CMP, CBC #### [address] Glucose Ql (U) Normal Normal Normal [facility] Comment on above: Order Comment: Name Collection Type:: Clean-Voided Midstream Performed By: #### H EPATIC, MG, LIPASE, CMP, CBC #### [address] Hyaline Casts,Urine 0-8 Normal 0-8 [facility] Comment on above: Order Comment: Name Collection Type:: Clean-Voided Midstream Result Comment: PERF ORMED BY: [place] [address] PATHOLOGIST [employer]ER BAUTISTA BAKER M.D. Performed By: #### H EPATIC, MG, LIPASE, CMP, CBC #### [address] [place] [address] [place] Ketones Ql (U) Trace High Negative [facility] Comment on above: Order Comment: Name Collection Type:: Clean-Voided Midstream Performed By: #### H EPATIC, MG, LIPASE, CMP, CBC #### [address] Leukocyte esterase Test strip Ql (U) Negative Normal Negative [facility] Comment on above: Order Comment: Name Collection Type:: Clean-Voided Midstream Performed By: #### H EPATIC, MG, LIPASE, CMP, CBC #### [place] [address] [place] Nitrite,Urine Negative Normal Negative [facility] Comment on above: Order Comment: Name Collection Type:: Clean-Voided Midstream Performed By: #### H EPATIC, MG, LIPASE, CMP, CBC #### [address] Occult Blood,Urine Negative Normal Negative [facility] Comment on above: Order Comment: Name Collection Type:: Clean-Voided Midstream Result Comment: PERF ORMED BY: [place] [address] PATHOLOGIST [employer] BAUTISTA BAKER M.D. Performed By: #### H EPATIC, MG, LIPASE, CMP, CBC #### [address] Protein,Urine Negative Normal Negative [facility] Comment on above: Order Comment: Name Collection Type:: Clean-Voided Midstream Performed By: #### H EPATIC, MG, LIPASE, CMP, CBC #### [place] [address] [place] RBC,Urine 1-2 Normal 0-4 [facility] Comment on above: Order Comment: Name Collection Type:: Clean-Voided Midstream Performed By: #### H EPATIC, MG, LIPASE, CMP, CBC #### [place] [address] [place] Specificy [place],Urine 1.026 Normal 1.001-1.030 [facility] Comment on above: Order Comment: Name Collection Type:: Clean-Voided Midstream Performed By: #### H EPATIC, MG, LIPASE, CMP, CBC #### [address] Squamous Epithelial Cell,Urine 3-4 High 0-2 [facility] Comment on above: Order Comment: Name Collection Type:: Clean-Voided Midstream Performed By: #### H EPATIC, MG, LIPASE, CMP, CBC #### [address] Urobilinogen,Urine Normal Normal Normal [facility] Comment on above: Order Comment: Name Collection Type:: Clean-Voided Midstream Performed By: #### H EPATIC, MG, LIPASE, CMP, CBC #### [address] WBC,Urine 3-4 Normal 0-4 [facility] Comment on above: Order Comment: Name Collection Type:: Clean-Voided Midstream Performed By: #### H EPATIC, MG, LIPASE, CMP, CBC #### [address] Erythrocyte distribution wid th [Ratio] by Automated countOrdered By: Trace Lowery on 04-06-2023 Erythrocyte distribution width (RBC) [Ratio] 13.9 % Normal 11.9-15.3 [facility] Comment on above: Performed By: #### L IPASE, HEPATIC, RAEGAN, CBC, BMP #### [address] Erythrocytes [#/volume] in B lood by Automated countOrdered By: Trace Lowery on 04-06-2023 RBC (Bld) [#/Vol] 4.17 10*6/uL Normal 3.60-5.00 [facility] Comment on above: Performed By: #### L IPASE, HEPATIC, RAEGAN, CBC, BMP #### [address] Glucose [Mass/volume] in Ser um or PlasmaOrdered By: Trace Lowery on 04-06-2023 Glucose [Mass/Vol] 77 mg/dL Normal 70-100 [facility] Comment on above: ADA recommended refe rence rangeRandom Glucose Reference Range is dependent on time and content of last meal. Glucose of more than 200 mg/dL in a nonstressed, ambulatory subject supports the diagnosis of Diabetes Mellitus. Result Comment: [place] om Glucose Reference Range is dependent on time and content of last meal. Glucose of more than 200 mg/dL in a nonstressed, ambulatory subject supports the diagnosis of Diabetes Mellitus. ADA recommended reference range Performed By: #### A DDONUAPLUS, UHCG, CUU #### [address] HCG ( test) IA.rapi d Ql (U)Ordered By: Trace Lowery on 04-06-2023 HCG ( test) Ql (U) Negative [facility] HCG,Urineon 04-06-2023 Beta HCG ( test) Ql (U) Negative Normal [facility] Comment on above: Result Comment: PERF ORMED BY: [place] [address] PATHOLOGIST [employer] BAUTISTA BAKER M.D. Performed By: #### A DDONUAPLUS, [facility], CUU #### [address] Hematocrit [Volume Fraction] of Blood by Automated countOrdered By: Trace Lowery on 04-06-2023 Hematocrit (Bld) [Volume fraction] 37.4 % Normal 34.0-46.4 [facility] Comment on above: Performed By: #### L IPASE, HEPATIC, RAEGAN, CBC, BMP #### [address] Hemoglobin [Mass/volume] in BloodOrdered By: Trace Lowery on 04-06-2023 Hemoglobin (Bld) [Mass/Vol] 12.8 g/dL Normal 11.8-15.4 [facility] Comment on above: Performed By: #### L IPASE, HEPATIC, RAEGAN, CBC, BMP #### [facility] [address] Hepatic Panelon 04-06-2023 Albumin [Mass/Vol] 4.5 g/dL Normal 3.5-5.7 [facility] Comment on above: Performed By: #### A DDONUAPLUS, UHCG, CUU #### [facility] [address] Bilirubin,Indirect 0.3 mg/dL Normal [facility] Comment on above: Performed By: #### A DDONUAPLUS, UHCG, CUU #### [facility] [address] Bilirubin.indirect [Mass/Vol] 0.10 mg/dL Normal 0.03-0.18 [facility] Comment on above: Performed By: #### A DDONUAPLUS, UHCG, CUU #### [facility] [address] Ketones Auto test strip (U) [Mass/Vol]Ordered By: Trace Lowery on 04-06-2023 Ketones (U) [Mass/Vol] Trace Negative [facility] - UrinalysisOrder ed By: Trace Lowery on 04-06-2023 Hyaline casts LM Ql (Urine sed) 0-8 [LPF] 0-8 [facility] Leukocytes [#/volume] correc darvin for nucleated erythrocytes in Blood by Automated counOrdered By: Trace Lowery on 04-06-2023 WBC corrected for nucl RBC Auto (Bld) [#/Vol] 3.8 10*3/uL 3.8-11.6 [facility] Leukocytes [#/volume] in Blo od by Automated countOrdered By: Trace Lowery on 04-06-2023 WBC (Bld) [#/Vol] 3.8 10*3/uL Normal 3.8-11.6 [facility] Comment on above: Performed By: #### L IPASE, HEPATIC, RAEGAN, CBC, BMP #### [facility] [address] Lipase [Enzymatic activity/v olume] in Serum or PlasmaOrdered By: Trace Bullimore on 04-06-2023 Lipase [Catalytic activity/Vol] 86.0 U/L High 11.0-82.0 [facility] Comment on above: Result Comment: PERF ORMED BY: [place] [address] PATHOLOGIST [employer] BAUTISTA BAKER M.D. Performed By: #### A DDONUAPLUS, CG, CUU #### [address] Lymphocytes [#/volume] in Bl ood by Automated countOrdered By: Trace Dericimore on 04-06-2023 Lymphocytes (Bld) [#/Vol] 1.4 10*3/uL Normal 1.00-4.8 [facility] Comment on above: Performed By: #### L IPASE, HEPATIC, RAEGAN, CBC, BMP #### [address] Lymphocytes/100 leukocytes i n Blood by Automated countOrdered By: Trace Bullimore on 04-06-2023 Lymphocytes/100 WBC (Bld) 37.6 % Normal . [facility] Comment on above: Performed By: #### L IPASE, HEPATIC, RAEGAN, CBC, BMP #### [address] MCH [Entitic mass] by Automa darvin countOrdered By: Trace Bullimore on 04-06-2023 MCH (RBC) [Entitic mass] 30.6 pg Normal 24.7-34.3 [facility] Comment on above: Performed By: #### L IPASE, HEPATIC, RAEGAN, CBC, BMP #### [address] MCHC Auto (RBC) [Mass/Vol]Or dered By: Trace Bullimore on 04-06-2023 MCHC (RBC) [Mass/Vol] 34.2 g/dL 32.0-35.0 [facility] MCV [Entitic volume] by Auto mated countOrdered By: Trace Bullimore on 04-06-2023 MCV (RBC) [Entitic vol] 89.7 fL Normal 80-100 [facility] Comment on above: Performed By: #### L IPASE, HEPATIC, RAEGAN, CBC, BMP #### [facility] [address] [place] [address] Monocyte distribution width [Entitic volume] in Blood by AutomatedOrdered By: Trace Leosimore on 04-06-2023 Monocyte distribution width Auto (Bld) [Entitic vol] 15.98 % 0.00-20.00 [facility] Neutrophils [#/volume] in Bl ood by Automated countOrdered By: Trace Leosimore on 04-06-2023 Neutrophils (Bld) [#/Vol] 2.0 10*3/uL Normal 1.8-7.7 [facility] Comment on above: Performed By: #### L IPASE, HEPATIC, RAEGAN, CBC, BMP #### [facility] [address] [place] [address] Nitrite Test strip Ql (U)Ord ered By: Trace Leosimlaurel on 04-06-2023 Nitrite Ql (U) Negative Negative [facility] No Panel InformationOrdered By: Trace Solimanore on 04-06-2023 Estimated GFR (CKD-EPI) > 60.0 mL/Min [facility] Creatinine Clearance (Chem 98.98 [facility] Nucleated erythrocytes [Pres ence] in Blood by Automated countOrdered By: Trace Leosimore on 04-06-2023 Nucleated RBC Auto Ql (Bld) 0.1 /100{WBC} 0-0.5 [facility] Platelet mean volume [Entiti c volume] in Blood by Automated countOrdered By: Trace Leosimore on 04-06-2023 Platelet mean volume (Bld) [Entitic vol] 9.7 fL Normal 6.3-10.7 [facility] Comment on above: Performed By: #### L IPASE, HEPATIC, RAEGAN, CBC, BMP #### [facility] [address] [place] [address] Platelets [#/volume] in Bloo d by Automated countOrdered By: Trace Leosimore on 04-06-2023 Platelets (Bld) [#/Vol] 210 10*3/uL Normal 150-450 [facility] Comment on above: Performed By: #### L IPASE, HEPATIC, RAEGAN, CBC, BMP #### [facility] [address] [place] [address] Potassium [Moles/volume] in Serum or PlasmaOrdered By: Trace Bullimore on 04-06-2023 Potassium [Moles/Vol] 3.7 mmol/L Normal 3.5-5.1 [facility] Comment on above: Performed By: #### A DDONUAPLUS, UHCG, CUU #### [facility] [address] [place] [address] Protein Auto test strip (U) [Mass/Vol]Ordered By: Trace Bullimore on 04-06-2023 Protein (U) [Mass/Vol] Negative Negative [facility] Protein [Mass/volume] in Ser um or PlasmaOrdered By: Trace Bullimore on 04-06-2023 Protein [Mass/Vol] 7.1 g/dL Normal 6.4-8.9 [facility] Comment on above: Performed By: #### A DDONUAPLUS, UHCG, CUU #### [address] Serum globulin measurement b y calculation (mass/volume)Ordered By: Trace Leosimore on 04-06-2023 Globulin (S) [Mass/Vol] 2.6 g/dL [facility] Comment on above: Performed By: #### A DDONUAPLUS, UHCG, CUU #### [facility] [address] [place] [address] Serum or plasma albumin/glob ulin mass ratioOrdered By: Trace Bullimore on 04-06-2023 Albumin/Globulin [Mass ratio] 1.7 {ratio} [facility] Comment on above: Performed By: #### A DDONUAPLUS, UHCG, CUU #### [facility] [address] [place] [address] Serum or plasma anion gap de terminationOrdered By: Trace Bullimore on 04-06-2023 Anion gap [Moles/Vol] 12.4 mmol/L Normal 6.0-15.0 [facility] Comment on above: Performed By: #### A JOSESITO RAY, CUU #### [facility] [address] Serum or plasma non-glucuron idated bilirubin measurement (mass/volume)Ordered By: Trace Lowery on 04-06-2023 Bilirubin.indirect [Mass/Vol] 0.3 mg/dL [facility] Sodium [Moles/volume] in Ser um or PlasmaOrdered By: Trace Lowery on 04-06-2023 Sodium [Moles/Vol] 141 mmol/L Normal 136-145 [facility] Comment on above: Performed By: #### A JOSESITO RAY, CUU #### [facility] [address] [place] [address] Specific gravity Auto test s trip (U) [Rel density]Ordered By: Trace Lowery on 04-06-2023 Specific gravity (U) [Rel density] 1.026 1.001-1.030 [facility] Squamous epithelial cells de tection in urine sediment by light microscopyOrdered By: Trace Lowery on 04-06-2023 Epithelial cells.squamous LM Ql (Urine sed) 3-4 [HPF] 0-2 [facility] Urea nitrogen [Mass/volume] in Serum or PlasmaOrdered By: Trace Lowery on 04-06-2023 Urea nitrogen [Mass/Vol] 10 mg/dL Normal 7-25 [facility] Comment on above: Performed By: #### A JOSESITO RAY, CUU #### [facility] [address] Urine bacteria detection by automated methodOrdered By: Trace Lowery on 04-06-2023 Bacteria Auto Ql (U) None seen None Seen [facility] Urine clarity by refractomet ry automatedOrdered By: Trace Lowery on 04-06-2023 Clarity Refractometry automated (U) Cloudy Clear [facility] Urine glucose measurement by automated test strip (mass/volume)Ordered By: Trace Lowery on 04-06-2023 Glucose Auto test strip (U) [Mass/Vol] Normal mg/dL Normal [facility] Urine hemoglobin detection b y automated test stripOrdered By: Trace Lowery on 04-06-2023 Hemoglobin Auto test strip Ql (U) Negative Negative [facility] Urine leukocyte esterase det ection by automated test stripOrdered By: Trace Lowery on 04-06-2023 Leukocyte esterase Auto test strip Ql (U) Negative Negative [facility] Urine pH measurement by auto mated test stripOrdered By: Trace Lowery on 04-06-2023 pH (U) 7.5 [pH] Normal 5.0-9.0 [facility] Comment on above: Order Comment: Name Collection Type:: Clean-Voided Midstream Performed By: #### H EPATIC, MG, LIPASE, CMP, CBC #### [facility] [address] Urobilinogen Auto test strip (U) [Mass/Vol]Ordered By: Trace Lowery on 04-06-2023 Urobilinogen (U) [Mass/Vol] Normal mg/dL Normal [facility] BMPon 04-02-2023 Anion gap [Moles/Vol] 10 mmol/L Normal 07-31 [facility] Comment on above: Performed By: #### 2 358778, 1681793, 2642863, 13145262, 39499557, 20099931, 0146782, 91100682 ####[facility] [address] [place] [address] BUN/Creat Ratio 14 No Units Normal 12-04 [facility] Comment on above: Performed By: #### 2 406653, 1593854, 8245728, 33943353, 27153369, 31989882, 5009946, [id number] ####[facility] [address] [place] [address] Calcium [Mass/Vol] 8.4 mg/dL Low 8.9-11.1 [facility] Comment on above: Performed By: #### 2 615286, 0117009, 8092544, 38259160, 71750608, 14900186, 6658750, 48144055 ####[facility] [address] [place] [address] Chloride [Moles/Vol] 111 mmol/L Normal 101-111 [facility] Comment on above: Performed By: #### 2 934018, 9394468, 6324813, 99152241, 25697314, 45975183, 5360757, 63980685 ####[facility] [address] [place] [address] CO2 [Moles/Vol] 21 mmol/L Normal 21-31 [facility] Comment on above: Performed By: #### 2 548621, 8963287, 4207522, 70768986, 87148629, 45172943, 3438333, 56632458 ####[facility] [address] [place] [address] Creatinine [Mass/Vol] 0.7 mg/dL Normal 0.5-1.3 [facility] Comment on above: Performed By: #### 2 565659, 0797713, 6024335, 57201562, 74969715, 95336771, 5290457, 24550018 ####[place] [address] [place] [address] Glucose [Mass/Vol] 86 mg/dL Normal 55-199 [facility] Comment on above: Performed By: #### 2 431549, 8214712, 2853313, 94231136, 60680351, 40533304, 9846881, 80925106 ####[facility] [address] [place] [address] Potassium [Moles/Vol] 3.9 mmol/L Normal 3.5-5.3 [facility] Comment on above: Performed By: #### 2 383560, 5459648, 1493595, 43877105, 55261143, 42308599, 4154621, 31718455 ####[address] [place] [address] Sodium [Moles/Vol] 138 mmol/L Normal 135-145 [facility] Comment on above: Performed By: #### 2 988517, 8367918, 6338516, 45692909, 54520484, 58423351, 5029844, 95149519 ####[facility] [address] [place] [address] Urea nitrogen [Mass/Vol] 10 mg/dL Normal 5-21 [facility] Comment on above: Performed By: #### 2 176139, 2347077, 1509247, 84298398, 78304095, 68726913, 6783124, 18881702 ####[address] [address] BNPon 04-02-2023 Int Ctr BNP Pass Normal [facility] Comment on above: Order Comment: 2nd d raw rejected due to clotted speciment. Phlebotomists notified of redraw by message. [facility] 04/02/2023 12:28:38 EST Performed By: #### 2 646609, 9658550, 3518031, 70954732, 52357717, 23320703, 3854574, 16674427 ####[facility] [address] [place] [address] Natriuretic peptide B (Bld) [Mass/Vol] 25 pg/mL Normal 5-80 [facility] Comment on above: Order Comment: 2nd d raw rejected due to clotted speciment. Phlebotomists notified of redraw by message. [facility] 04/02/2023 12:28:38 EST Performed By: #### 2 758548, 0034823, 1045282, 55347528, 26586899, 32296804, 7141738, 32401132 ####[facility] [address] [place] [address] CBC w/ Auto Diffon 4 Basophil Absolute 0.0 E9/L Normal 0.0-0.2 [facility] Comment on above: Order Comment: speci men rejected due to clot. Phlebotomists notified by message. [facility] 04/02/2023 11:56:19 EST\2nd draw rejected due to clot. Phlebotomists notified by message. [facility] 04/02/2023 12:27:56 EST Performed By: #### 2 117508, 3168844, 6819210, 25830552, 11042659, 77744905, 1704778, 76168138 ####[facility] [address] [place] [address] Basophils/100 WBC (Bld) 0.8 % Normal 0.0-2.0 [facility] Comment on above: Order Comment: speci men rejected due to clot. Phlebotomists notified by message. [facility] 04/02/2023 11:56:19 EST\2nd draw rejected due to clot. Phlebotomists notified by message. [facility] 04/02/2023 12:27:56 EST Performed By: #### 2 707919, 4139005, 0779136, 01558865, 95385713, 41740523, 3079960, 01335811 ####[facility] [address] [place] [address] Eos Absolute 0.2 E9/L Normal 0.0-0.5 [facility] Comment on above: Order Comment: speci men rejected due to clot. Phlebotomists notified by message. [facility] 04/02/2023 11:56:19 EST\2nd draw rejected due to clot. Phlebotomists notified by message. [facility] 04/02/2023 12:27:56 EST Performed By: #### 2 594281, 4290286, 2925542, 20935176, 68410493, 27114637, 5518292, 64259768 ####[facility] [address] [place] [address] Eosinophils/100 WBC (Bld) 3.1 % Normal 0.0-8.0 [facility] Comment on above: Order Comment: speci men rejected due to clot. Phlebotomists notified by message. [facility] 04/02/2023 11:56:19 EST\2nd draw rejected due to clot. Phlebotomists notified by message. [facility] 04/02/2023 12:27:56 EST Performed By: #### 2 972279, 5733031, 6520830, 95892450, 42663170, 63979942, 5506803, 40788655 ####[facility] [address] [place] [address] Erythrocyte distribution width (RBC) [Ratio] 14.0 % Normal 10.9-14.2 [facility] Comment on above: Order Comment: speci men rejected due to clot. Phlebotomists notified by message. [facility] 04/02/2023 11:56:19 EST\2nd draw rejected due to clot. Phlebotomists notified by message. [facility] 04/02/2023 12:27:56 EST Performed By: #### 2 042700, 5120642, 6547553, 68661958, 16341705, 82436335, 6432971, 40270112 ####[facility] [address] [place] [address] Hematocrit (Bld) [Volume fraction] 38.0 % Normal 34.0-46.0 [facility] Comment on above: Order Comment: speci men rejected due to clot. Phlebotomists notified by message. [facility] 04/02/2023 11:56:19 EST\2nd draw rejected due to clot. Phlebotomists notified by message. [facility] 04/02/2023 12:27:56 EST Performed By: #### 2 799806, 7601950, 2809475, 67087919, 59244183, 66786462, 8419503, 67301569 ####[facility] [address] [place] [address] Hemoglobin (Bld) [Mass/Vol] 12.8 g/dL Normal 12.0-16.0 [facility] Comment on above: Order Comment: speci men rejected due to clot. Phlebotomists notified by message. [facility] 04/02/2023 11:56:19 EST\2nd draw rejected due to clot. Phlebotomists notified by message. [facility] 04/02/2023 12:27:56 EST Performed By: #### 2 981106, 0072229, 7546939, 33406271, 76353621, 09076130, 2712545, 59248968 ####[facility] [address] [place] [address] Lymph Absolute 1.8 E9/L Normal 1.0-4.0 [facility] Comment on above: Order Comment: speci men rejected due to clot. Phlebotomists notified by message. [facility] 04/02/2023 11:56:19 EST\2nd draw rejected due to clot. Phlebotomists notified by message. [facility] 04/02/2023 12:27:56 EST Performed By: #### 2 258728, 6030813, 7044268, 58666372, 86965739, 88162955, 1507024, 07515620 ####[facility] [address] [place] [address] Lymphocytes/100 WBC (Bld) 34.1 % Normal 14.0-50.0 [facility] Comment on above: Order Comment: speci men rejected due to clot. Phlebotomists notified by message. [facility] 04/02/2023 11:56:19 EST\2nd draw rejected due to clot. Phlebotomists notified by message. [facility] 04/02/2023 12:27:56 EST Performed By: #### 2 380210, 8333558, 8692321, 82257251, 86828198, 36959522, 1283465, 04190577 ####[facility] [address] [place] [address] MCH (RBC) [Entitic mass] 29.8 pg Normal 27.0-34.0 [facility] Comment on above: Order Comment: speci men rejected due to clot. Phlebotomists notified by message. [facility] 04/02/2023 11:56:19 EST\2nd draw rejected due to clot. Phlebotomists notified by message. [facility] 04/02/2023 12:27:56 EST Performed By: #### 2 432467, 9296935, 1836742, 85426350, 91273507, 45138731, 2762264, 06086432 ####[facility] [address] [place] [address] MCHC (RBC) [Mass/Vol] 33.5 g/dL Normal 31.4-36.0 [facility] Comment on above: Order Comment: speci men rejected due to clot. Phlebotomists notified by message. [facility] 04/02/2023 11:56:19 EST\2nd draw rejected due to clot. Phlebotomists notified by message. [facility] 04/02/2023 12:27:56 EST Performed By: #### 2 718580, 5985025, 4610880, 26495125, 73292072, 13441130, 7953100, 65712178 ####[facility] [address] [place] [address] MCV (RBC) [Entitic vol] 88.9 fL Normal 80.0-100.0 [facility] Comment on above: Order Comment: speci men rejected due to clot. Phlebotomists notified by message. [facility] 04/02/2023 11:56:19 EST\2nd draw rejected due to clot. Phlebotomists notified by message. [facility] 04/02/2023 12:27:56 EST Performed By: #### 2 746663, 5269907, 2160405, 30304100, 41545377, 03540609, 0025943, 00492262 ####[facility] [address] [place] [address] Newton Absolute 0.4 E9/L Normal 0.2-1.[address] [facility] Comment on above: Order Comment: speci men rejected due to clot. Phlebotomists notified by message. [facility] 04/02/2023 11:56:19 EST\2nd draw rejected due to clot. Phlebotomists notified by message. [facility] 04/02/2023 12:27:56 EST Performed By: #### 2 746902, 0967292, 4256075, 72042298, 92947676, 38058989, 5305953, 02557683 ####[facility] [address] [place] [address] Monocytes/100 WBC (Bld) 7.4 % Normal 4.0-14.0 [facility] Comment on above: Order Comment: speci men rejected due to clot. Phlebotomists notified by message. [facility] 04/02/2023 11:56:19 EST\2nd draw rejected due to clot. Phlebotomists notified by message. [facility] 04/02/2023 12:27:56 EST Performed By: #### 2 747839, 0146761, 3684947, 43920140, 89790995, 46092807, 8160446, 78686315 ####[facility] [address] [place] [address] Neutro Absolute 2.9 E9/L Normal 2.0-7.5 [facility] Comment on above: Order Comment: speci men rejected due to clot. Phlebotomists notified by message. [facility] 04/02/2023 11:56:19 EST\2nd draw rejected due to clot. Phlebotomists notified by message. [facility] 04/02/2023 12:27:56 EST Performed By: #### 2 486813, 8299009, 4161578, 49155915, 32974615, 44914831, 6183398, 23936395 ####[facility] [address] [place] [address] Neutro Auto 54.6 % Normal 36.0-75.0 [facility] Comment on above: Order Comment: speci men rejected due to clot. Phlebotomists notified by message. [facility] 04/02/2023 11:56:19 EST\2nd draw rejected due to clot. Phlebotomists notified by message. [facility] 04/02/2023 12:27:56 EST Performed By: #### 2 870494, 3049016, 6013844, 53434673, 97333889, 23413719, 6001825, 96969751 ####[facility] [address] [place] [address] Platelet 204.0 E9/L Normal 150.0-500.0 [facility] Comment on above: Order Comment: speci men rejected due to clot. Phlebotomists notified by message. [facility] 04/02/2023 11:56:19 EST\2nd draw rejected due to clot. Phlebotomists notified by message. [facility] 04/02/2023 12:27:56 EST Result Comment: Demetra meneses with slide review Performed By: #### 2 059923, 9068149, 6812752, 93894974, 07529150, 96022032, 2438461, 59215863 ####[facility] [address] [place] [address] Platelet mean volume (Bld) [Entitic vol] 9.8 fL Normal 6.4-10.8 [facility] Comment on above: Order Comment: speci men rejected due to clot. Phlebotomists notified by message. [facility] 04/02/2023 11:56:19 EST\2nd draw rejected due to clot. Phlebotomists notified by message. [facility] 04/02/2023 12:27:56 EST Performed By: #### 2 443311, 6722897, 6017998, 41223461, 31161723, 49941090, 1251435, 87406531 ####[facility] [address] [place] [address] RBC 4.3 E12/L Normal 4.3-5.9 [facility] Comment on above: Order Comment: speci men rejected due to clot. Phlebotomists notified by message. [facility] 04/02/2023 11:56:19 EST\2nd draw rejected due to clot. Phlebotomists notified by message. [facility] 04/02/2023 12:27:56 EST Performed By: #### 2 872941, 4310971, 9651119, 36537896, 31669707, 03600471, 7798851, 06701391 ####[facility] [address] [place] [address] WBC 5.3 E9/L Normal 4.0-11.0 [facility] Comment on above: Order Comment: speci men rejected due to clot. Phlebotomists notified by message. [facility] 04/02/2023 11:56:19 EST\2nd draw rejected due to clot. Phlebotomists notified by message. [facility] 04/02/2023 12:27:56 EST Performed By: #### 2 478594, 8167837, 0790163, 56895375, 88187095, 33409907, 6475258, 86114976 ####[facility] [address] [place] [address] CHEMISTRYOrdered By: SYSTEM SYSTEM on 04-02-2023 Troponin [...] Sensitivity Troponin I Instructions For Use, Alan Twined, September 2017) Albumin [Mass/Vol] 3.9 g/dL Normal [...] 25 pg/mL Normal 5 - 80 pg/mL [facility] HemeManSS COAGULATIONOrdered By: Gladys Arroyo on 04-02-2023 aPTT Coag (PPP) [Time] 33.2 s Normal 25.1 - 36.5 second(s) [facility] Auto Coag Comment on [...] the same coagulation reagent and instrumentation as [facility]. Currently there are no coagulation studies available worldwide for children to 14 days, and no normal ranges. Heparin therapeutic range (represented by Anti-Factor Xa activity of 0.2 - 0.4 U/mL) corresponds to PTT of 56.6 - 109.0 sec. Fibrin D-dimer FEU (PPP) [Mass/Vol] 541 ng/mL FEU Invalid Interpretation Code 215 - 500 ng/mL FEU [facility] Auto Coag Comment on [...] [Relative time] 1.14 {INR} Invalid Interpretation Code [facility] Comment on above: Interpretive Data: I NR results are specifically intended to assess patients stabilized on long-term Anticoagulation therapy suggested INR s Less Intensive Anticoagulation 2.0 3.0 Conventional Range 3.0 4.5 PT Coag (PPP) [Time] 12.7 s High 9.4 - 12.5 second(s) [facility] Comment on above: Interpretive Data: 1 5 days - 4 weeks 1 - 5 months 6 -11 months 1-5 years 6-10 years 11 -17 years Mean: 11.2 (9.5-12.6) Mean: 11.0 (9.7-12.8) Mean: 11.0 (9.8-13.0) Mean: 11.3 (9.9-13.4) Mean: 11.7 (10.0-14.6) Mean: 11.8 (10.0 - 14.1) Pediatric Reference ranges were obtained from a study by Stanotn Lott et al. prepared from 1437 samples obtained at 7 different centers using the same coagulation reagent and instrumentation as [facility]. Currently there are no coagulation studies available worldwide for children to 14 days, and no normal ranges. CTA Abdomen and Pelvison CTA Abdomen and Pelvis Normal [facility] CTA Cheston 04-02-2023 CTA Chest Normal [facility] Consent for Treatmenton 03-18 Consent for Treatment [id number] B5#1.00TIFF Normal [facility] D-Dimeron 04-02-2023 Fibrin D-dimer FEU (PPP) [Mass/Vol] 541 [id number] Abnormal 215-500 [facility] Comment on above: Order Comment: [...] skin infectionsLiver cirrhosisPregnancy Performed By: #### 2 546241, 8206242, 3317414, 85534160, 08255585, 14430039, 8619794, 24184788 ####[facility] [address] [place] [address] Discharge Instructionson Discharge Instructions [id number] 98#1.00TIFF Normal [facility] ED Clinical Summaryon 2023 ED Clinical Summary Normal [facility] ED Note-Physicianon 04-02-19 ED Note-Physician Normal [facility] Comment on above: Result Comment: Elec tronically Signed By: Jose Ramon Martinez, Ashutosh Valles\.br\Date and Time Signed: 04/02/23 17:20 EST ED Patient Education Noteon 04-02-2023 ED Patient Education Note Normal [facility] ED Patient Summaryon 024 ED Patient Summary Normal [facility] Free T4on 04-02-2023 Free T4 [Mass/Vol] 0.75 ng/dL Normal 0.58-1.64 [facility] Comment on above: Performed By: #### 2 353680, 05729543, 5654068, 4756535 ####[facility] [address] [place] [address] HEMATOLOGYOrdered By: SYSTEM SYSTEM on 04-02-2023 Basophil [...] Normal 80.0 - 100.0 fL Remisol Heme [place] Absolute 0.4 E9/L Normal 0.2 - 1.0 [...] 04-02-2023 Albumin [Mass/Vol] 3.9 g/dL Normal 3.3-5.0 [facility] Comment on above: Performed By: #### 2 523067, 59048707, 9151419, 8020653 ####[facility] [address] [place] [address] Albumin/Globulin [Mass ratio] 1.6 {ratio} Normal 1.1-2.2 [facility] Comment on above: Performed By: #### 2 847077, 34452213, 3992170, 5395782 ####[facility] [address] [place] [address] Alk Phos 50 Int._Unit/L Normal 21-98 [facility] Comment on above: Performed By: #### 2 290158, 44815974, 7818005, 4444683 ####[facility] [address] [place] [address] ALT 27 Int._Unit/L Normal 6-46 [facility] Comment on above: Performed By: #### 2 635860, 11779336, 8096267, 0334628 ####[facility] [address] [place] [address] AST 36 Int._Unit/L Normal 5-43 [facility] Comment on above: Performed By: #### 2 972901, 34016100, 3749146, 6925131 ####[facility] [address] [place] [address] Bili Direct 0.0 mg/dL Normal 0.0-0.4 [facility] Comment on above: Performed By: #### 2 388732, 77380395, 3638698, 6834573 ####[facility] [address] [place] [address] Bili Indirect 0.3 mg/dL Normal 0.1-0.[address] [facility] Comment on above: Performed By: #### 2 732684, 53707557, 9617307, 6082093 ####[facility] [address] [place] [address] Bili Total 0.3 mg/dL Normal 0.0-1.1 [facility] Comment on above: Performed By: #### 2 439965, 39428695, 1611488, 3759458 ####[facility] [address] [place] [address] Globulin (S) [Mass/Vol] 2.4 g/dL Normal 1.4-4.0 [facility] Comment on above: Performed By: #### 2 404800, 43783158, 3503836, 1035346 ####[facility] [address] [place] [address] Protein [Mass/Vol] 6.3 g/dL Normal 6.0-7.8 [facility] Comment on above: Performed By: #### 2 327324, 83254298, 4236005, 6662005 ####[facility] [address] [place] [address] Lipase Levelon 04-02-2023 Lipase Lvl 124 unit/L High 13-58 [facility] Comment on above: Performed By: #### 2 142948, 73188400, 8969556, 3401414 ####[address] [place] [address] Magnesiumon 04-02-2023 Magnesium [Mass/Vol] 1.9 mg/dL Normal 1.3-2.4 [facility] Comment on above: Performed By: #### 2 343214, 2091081, 0793550, 00825601, 57908727, 82427472, 4364423, 62203288 ####[facility] [address] [place] [address] PT & PTTon 04-02-2023 aPTT Coag (PPP) [Time] 33.2 second(s) Normal 25.1-36.5 [facility] Comment on above: Order Comment: speci men rejected due to clot. phlebotomists notified of redraw by message. [facility] 04/02/2023 12:33:39 EST Result Comment: Para [...] the same coagulation reagent and instrumentation as [facility]. Currently there are no coagulation studies available worldwide for children to 14 days, and no normal ranges. Heparin therapeutic range (represented by Anti-Factor Xa activity of 0.2 - 0.4 U/mL) corresponds to PTT of 56.6 - 109.0 sec. Performed By: #### 2 155051, 7899447, 2404320, 33258416, 73007074, 14061166, 8330099, 84768521 ####[facility] [address] [place] [address] INR Coag (PPP) [Relative time] 1.14 {INR} Invalid Interpretation Code [facility] Comment on above: Order Comment: speci men rejected due to clot. phlebotomists notified of redraw by message. [facility] 04/02/2023 12:33:39 EST Result Comment: INR results are specifically intended to assess patients stabilized on long-term Anticoagulation therapy suggested INR?s ?Less Intensive Anticoagulation? 2.0 ? 3.0Conventional Range 3.0 ? 4.5 Performed By: #### 2 784058, 4244803, 3608537, 71414938, 66708391, 36245098, 0007109, 71480405 ####[facility] [address] [place] [address] PT Coag (PPP) [Time] 12.7 second(s) High 9.4-12.5 [facility] Comment on above: Order Comment: speci men rejected due to clot. phlebotomists notified of redraw by message. [facility] 04/02/2023 12:33:39 EST Result Comment: 15 [...] the same coagulation reagent and instrumentation as [facility]. Currently there are no coagulation studies available worldwide for children to 14 days, and no normal ranges. Performed By: #### 2 155546, 5142955, 0539691, 17024861, 81532816, 16028399, 1287769, 66292873 ####[facility] [address] [place] [address] Pre-Arrival Noteon Pre-Arrival Note Normal [facility] Progress Note-Nurseon 2023 Progress Note-Nurse CT called and verbalized IV infiltrated when attempting to flush. IV removed per this nurse and attempted to place IV with unsuccessful attempts. Dr. Albright and Sabina, RN aware. Normal [facility] TSH With T4fr Reflexon 04-02 TSH Qn 0.11 m[IU]/L Low 0.34-5.60 [facility] Comment on above: Performed By: #### 2 911717, 35496760, 1637562, 4303151 ####[facility] [address] [place] [address] Troponin 0 Hr.on 04-02-2023 Troponin 2.40 pg/mL Low 10.10-27.10 [facility] Comment on above: Result Comment: The 95% CI (Confidence Interval) PPV (Positive Predictive Value) for myocardial infarction in females is 38 pg/mL, in males 51 pg/mL. The results should be used in conjunction with clinical conditions of myocardial infarction.(Access High Sensitivity Troponin I Instructions For Use, Alan Gordy, September 2017) Performed By: #### 2 313669, 7659056, 5940344, 39712675, 36216373, 30364471, 4012467, 99629147 ####[facility] [address] [place] [address] Troponin 3 Hr.on 04-02-2023 Troponin I.cardiac [Mass/Vol] ng/mL Low 10.10-27.10 [facility] Comment on above: Result Comment: The 95% CI (Confidence Interval) PPV (Positive Predictive Value) for myocardial infarction in females is 38 pg/mL, in males 51 pg/mL. The results should be used in conjunction with clinical conditions of myocardial infarction.(Access High Sensitivity Troponin I Instructions For Use, Alan Gordy, September 2017) Performed By: #### 1 8640437 ####[facility] [address] [place] [address] XR Chest Single Viewon 04-02 XR Chest Single View Normal [facility] eGFRon 04-02-2023 eGFR 116 mL/min/1.73 m2 Normal >=59 [facility] Comment on above: Order Comment: Order added by Discern Expert. Performed By: #### 2 893591, 9797469, 4805468, 16898787, 76045924, 82940873, 2881523, 41211628 ####[facility] [address] [place] [address] Home Health Recordson 2023 Home Health Records [id number] F2#1.00TIFF Normal [facility] Ambulatory Visit Summaryon 0 03-24-2023 Ambulatory Visit Summary Normal [facility] Auth for Release of Medical Recordson 03-24-2023 Auth for Release of Medical Records [id number]#1.00TIFF Normal [facility] Family Medicine Office/Clini c Noteon 03-24-2023 Family Medicine Office/Clinic Note Normal [facility] Comment on above: Result Comment: Elec tronically Signed By: Jaquan Paula.rene\Date and Time Signed: 03/24/23 15:20 EST CBC panel Auto (Bld)on 03-19 Erythrocyte distribution width (RBC) [Ratio] 12.1 % 11.5 - 14.5 % [facility] Hematocrit (Bld) [Volume fraction] 33.7 % Low 36.0 - 46.0 % [facility] Hemoglobin (Bld) [Mass/Vol] 11.9 g/dL Low 12.0 - 16.0 g/dL [facility] Interpretation and review of laboratory results Abnormal [facility] MCH (RBC) [Entitic mass] 30.1 pg 26.0 - 34.0 pg [facility] MCHC (RBC) [Mass/Vol] 35.3 g/dL 32.0 - 36.0 g/dL [facility] MCV (RBC) [Entitic vol] 85 fL 80 - 100 fL [facility] Nucleated RBC/100 WBC (Bld) [Ratio] 0.0 % [facility] Platelets (Bld) [#/Vol] 285 10*3/uL [facility] RBC (Bld) [#/Vol] 3.96 10*6/uL [facility] WBC (Bld) [#/Vol] 4.3 10*3/uL [facility] Erythrocyte distribution width (RBC) [Ratio] 12.1 % Normal 11.5-14.5 [facility] Comment on above: Performed By: #### V ERAB #### MELISA Galvan ([id number]) [facility] ([facility]) [id number] [place] [address] [place] Hematocrit (Bld) [Volume fraction] 33.7 % Low 36.0-46.0 [facility] Comment on above: Performed By: #### V ERAB #### MELISA Galvan ([id number]) [facility] ([facility]) [id number] [place] [address] [place] Hemoglobin (Bld) [Mass/Vol] 11.9 g/dL Low 12.0-16.0 [facility] Comment on above: Performed By: #### V ERAB #### MELISA Galvan ([id number]) [facility] ([facility]) [id number] [place] [address] [place] MCH (RBC) [Entitic mass] 30.1 pg Normal 26.0-34.0 [facility] Comment on above: Performed By: #### V ERAB #### MELISA Galvan ([id number]) [facility] ([facility]) [address] [place] [address] [place] MCHC (RBC) [Mass/Vol] 35.3 g/dL Normal 32.0-36.0 [facility] Comment on above: Performed By: #### V ERAB #### MELISA Galvan () [facility] ([facility]) [address] [place] [address] [place] MCV (RBC) [Entitic vol] 85 fL Normal 80-100 [facility] Comment on above: Performed By: #### V ERAB #### MELISA Galvan () [facility] ([facility]) [address] [place] [address] [place] Nucleated RBC/100 WBC (Bld) [Ratio] 0.0 /100 WBCs Normal 0.0-0.0 [facility] Comment on above: Performed By: #### V ERAB #### MELISA Galvan () [facility] ([facility]) [address] [place] [address] [place] Platelets (Bld) [#/Vol] 285 x10*3/uL Normal 150-450 [facility] Comment on above: Performed By: #### V ERAB #### MELISA Galvan () [facility] ([facility]) [address] [place] [address] [place] RBC (Bld) [#/Vol] 3.96 x10*6/uL Low 4.00-5.20 [facility] Comment on above: Performed By: #### V ERAB #### MELISA Galvan () [facility] ([facility]) [address] [place] [address] [place] WBC (Bld) [#/Vol] 4.3 x10*3/uL Low 4.4-11.3 [facility] Comment on above: Performed By: #### V ERAB #### MELISA Galvan () [facility] ([facility]) [address] [place] [address] US Comprehensive metabolic 2000 panelon 03-19-2023 Albumin [Mass/Vol] 3.2 g/dL Low 3.5 - 5.0 g/dL Un [facility] ALP (Bld) [Catalytic activity/Vol] 68 U/L 35 - 125 U/L [facility] ALT [Catalytic activity/Vol] 14 U/L 5 - 40 U/L [facility] Anion gap [Moles/Vol] 13 mmol/L NINF - 19 mmol/L [facility] AST [Catalytic activity/Vol] 27 U/L 5 - 40 U/L [facility] Bilirubin [Mass/Vol] 0.4 mg/dL 0.1 - 1.2 mg/dL [facility] Calcium [Mass/Vol] 8.7 mg/dL 8.5 - 10.4 mg/dL [facility] Chloride [Moles/Vol] 106 mmol/L 97 - 107 mmol/L [facility] CO2 [Moles/Vol] 21 mmol/L Low 24 - 31 mmol/L [facility] Creatinine [Mass/Vol] 0.60 mg/dL 0.40 - 1.60 mg/dL [facility] eGFR - PINF [facility] Comment on above: Calculations of jessica mated GFR are performed using the 2020 CKD-EPI Study Refit equation without the race variable for the IDMS-Traceable creatinine methods. https://jasn.asnjournals.org/content//ASN.14240198 88 Glucose [Mass/Vol] 98 mg/dL 65 - 99 mg/dL Uni [facility] Interpretation and review of laboratory results Abnormal [facility] Potassium [Moles/Vol] 3.7 mmol/L 3.4 - 5.1 mmol/L [facility] Protein [Mass/Vol] 5.7 g/dL Low 5.9 - 7.9 g/dL Un [facility] Sodium [Moles/Vol] 140 mmol/L 133 - 145 mmol/L [facility] Urea nitrogen [Mass/Vol] 5 mg/dL Low 8 - 25 mg/dL [facility] Albumin [Mass/Vol] 3.2 g/dL Low 3.5-5.0 [facility] Comment on above: Performed By: #### V ERAB #### MELISA Galvan () [facility] ([facility]) [address] [place] [address] [place] ALP (Bld) [Catalytic activity/Vol] 68 U/L Normal 35-125 [facility] Comment on above: Performed By: #### V ERAB #### MELISA Galvan () [facility] ([facility]) [address] [place] [address] US ALT [Catalytic activity/Vol] 14 U/L Normal 5-40 [facility] Comment on above: Performed By: #### V ERAB #### MELISA Galvan () [facility] ([facility]) [address] [place] [address] [place] Anion gap [Moles/Vol] 13 mmol/L Normal <=19 [facility] Comment on above: Performed By: #### V ERAB #### MELISA Galvan () [facility] ([facility]) [address] [place] [address] US AST [Catalytic activity/Vol] 27 U/L Normal 5-40 [facility] Comment on above: Performed By: #### V ERAB #### MELISA Galvan () [facility] ([facility]) [address] [place] [address] US Bilirubin [Mass/Vol] 0.4 mg/dL Normal 0.1-1.2 [facility] Comment on above: Performed By: #### V ERAB #### MELISA Galvan () [facility] ([facility]) [address] [place] [address] [place] Calcium [Mass/Vol] 8.7 mg/dL Normal 8.5-10.4 [facility] Comment on above: Performed By: #### V ERAB #### MELISA Galvan () [facility] ([facility]) [address] [place] [address] [place] Chloride [Moles/Vol] 106 mmol/L Normal 97-107 [facility] Comment on above: Performed By: #### V ERAB #### MELISA Galvan () [facility] ([facility]) [address] [place] [address] [place] CO2 [Moles/Vol] 21 mmol/L Low 24-31 [facility] Comment on above: Performed By: #### V ERAB #### MELISA Galvan () [facility] ([facility]) [address] [place] [address] US Creatinine [Mass/Vol] 0.60 mg/dL Normal 0.40-1.60 [facility] Comment on above: Performed By: #### V ERAB #### MELISA Galvan () [facility] ([facility]) [address] [place] [address] [place] GFR/1.73 sq M.predicted MDRD (S/P/Bld) [Vol rate/Area] mL/min/{1.73_m2} Normal >60 [facility] Comment on above: Result Comment: Calc ulations of estimated GFR are performed using the 2020 CKD-EPI Study Refit equation without the race variable for the IDMS-Traceable creatinine methods. https://jasn.asnjournals.org/content///ASN.35998639 88 Performed By: #### V ERAB #### MELISA Galvan () [facility] ([facility]) [address] [place] [address] [place] Glucose [Mass/Vol] 98 mg/dL Normal 65-99 [facility] Comment on above: Performed By: #### V ERAB #### MELISA Galvan () [facility] ([facility]) [address] [place] [address] US Potassium [Moles/Vol] 3.7 mmol/L Normal 3.4-5.1 [facility] Comment on above: Performed By: #### V ERAB #### MELISA Galvan () [facility] ([facility]) [address] [place] [address] US Protein [Mass/Vol] 5.7 g/dL Low 5.9-7.9 [facility] Comment on above: Performed By: #### V ERAB #### MELISA Galvan ([id number]) [facility] ([facility]) [address] [place] [address] US Sodium [Moles/Vol] 140 mmol/L Normal 133-145 [facility] Comment on above: Performed By: #### V ERAB #### MELISA Galvan ([id number]) [facility] ([facility]) [address] [place] [address] US Urea nitrogen [Mass/Vol] 5 mg/dL Low 8-25 [facility] Comment on above: Performed By: #### V ERAB #### MELISA Galvan ([id number]) [facility] ([facility]) [address] [place] [address] US EGDon 03-19-2023 Esophagogastroduode noscopy Table formatting from the original result was not included. Normal [facility] EGD Study observation Narrat iveon 03-19-2023 Table [...] Tomasa Keyes RN 03/19/2023 1431 Procedure Location [address] [address] Referring Provider Generic Provider [place] No address on file Procedure Provider No name on file [facility] Work Phone: Radiology Study observation (narrative) [facility] Work Phone: EGD Study observation Narrat iveOrdered By: Eve Agosto on 03-19-2023 [facility] Work Phone: Home Health Recordson 2023 Home Health Records [id number] Normal [facility] Surgical pathology studyon 0 03-19-2023 Surgical pathology study Pathology report.total SEE COMMENT Surgical Pathology Case: [id number] Authorizing Provider: Eve Agosto MD Collected: 03/19/2023 1431 Ordering Location: [facility] [place] Received: 03/19/[address] [place] [address] Pathologist: Melisa Mc MD Specimen: STOMACH ANTRUM [...] is submitted in toto in 1 cassette. [facility] Gross dissection performed at: [place] [address] Normal [facility] CBC panel Auto (Bld)on 03-18 Erythrocyte distribution width (RBC) [Ratio] 12.5 % 11.5 - 14.5 % [facility] Hematocrit (Bld) [Volume fraction] 37.2 % 36.0 - 46.0 % [facility] Hemoglobin (Bld) [Mass/Vol] 12.1 g/dL 12.0 - 16.0 g/dL [facility] Interpretation and review of laboratory results Abnormal [facility] MCH (RBC) [Entitic mass] 30.0 pg 26.0 - 34.0 pg [facility] MCHC (RBC) [Mass/Vol] 32.5 g/dL 32.0 - 36.0 g/dL [facility] MCV (RBC) [Entitic vol] 92 fL 80 - 100 fL [facility] Nucleated RBC/100 WBC (Bld) [Ratio] 0.0 % [facility] Platelets (Bld) [#/Vol] 266 10*3/uL [facility] RBC (Bld) [#/Vol] 4.03 10*6/uL [facility] WBC (Bld) [#/Vol] 4.0 10*3/uL [facility] Erythrocyte distribution width (RBC) [Ratio] 12.5 % Normal 11.5-14.5 [facility] Comment on above: Performed By: #### 5 8410-2 ####MELISA Galvan ([id number])[facility] ()[address] [place] [address] Hematocrit (Bld) [Volume fraction] 37.2 % Normal 36.0-46.0 [facility] Comment on above: Performed By: #### 5 8410-2 ####MELISA Galvan ([id number])[facility] ()[address] [place] [address] Hemoglobin (Bld) [Mass/Vol] 12.1 g/dL Normal 12.0-16.0 [facility] Comment on above: Performed By: #### 5 8410-2 ####MLEISA Galvan ([id number])[facility] ()[address] [place] [address] MCH (RBC) [Entitic mass] 30.0 pg Normal 26.0-34.0 [facility] Comment on above: Performed By: #### 5 8410-2 ####MELISA Galvan ([id number])[facility] ()[address] [place] [address] MCHC (RBC) [Mass/Vol] 32.5 g/dL Normal 32.0-36.0 [facility] Comment on above: Performed By: #### 5 8410-2 ####MELISA Galvan ([id number])[facility] ()[address] [place] [address] MCV (RBC) [Entitic vol] 92 fL Normal 80-100 [facility] Comment on above: Performed By: #### 5 8410-2 ####MELISA Galvan (85812)[facility] ()[address] [place] [address] Nucleated RBC/100 WBC (Bld) [Ratio] 0.0 /100 WBCs Normal 0.0-0.0 [facility] Comment on above: Performed By: #### 5 8410-2 ####MELISA Galvan ([id number])[facility] ()[address] [place] [address] Platelets (Bld) [#/Vol] 266 x10*3/uL Normal 150-450 [facility] Comment on above: Performed By: #### 5 8410-2 ####MELISA Galvan ([id number])[facility] ()[address] [place] [address] RBC (Bld) [#/Vol] 4.03 x10*6/uL Normal 4.00-5.20 [facility] Comment on above: Performed By: #### 5 8410-2 ####MELISA Galvan ([id number])[facility] ()[address] [place] [address] WBC (Bld) [#/Vol] 4.0 x10*3/uL Low 4.4-11.3 [facility] Comment on above: Performed By: #### 5 8410-2 ####MELISA Galvan ([id number])[facility] ()[address] [place] [address] Comprehensive metabolic 2000 panelon 03-18-2023 Albumin [Mass/Vol] 3.0 g/dL Low 3.5 - 5.0 g/dL [facility] ALP (Bld) [Catalytic activity/Vol] 66 U/L 35 - 125 U/L [facility] ALT [Catalytic activity/Vol] 17 U/L 5 - 40 U/L [facility] Anion gap [Moles/Vol] 10 mmol/L NINF - 19 mmol/L [facility] AST [Catalytic activity/Vol] 33 U/L 5 - 40 U/L [facility] Bilirubin [Mass/Vol] 0.3 mg/dL 0.1 - 1.2 mg/dL [facility] Calcium [Mass/Vol] 8.4 mg/dL Low 8.5 - 10.4 mg/dL [facility] Chloride [Moles/Vol] 108 mmol/L High 97 - 107 mmol/L [facility] CO2 [Moles/Vol] 19 mmol/L Low 24 - 31 mmol/L [facility] Creatinine [Mass/Vol] 0.80 mg/dL 0.40 - 1.60 mg/dL [facility] eGFR - PINF [facility] Comment on above: Calculations of jessica mated GFR are performed using the 2020 CKD-EPI Study Refit equation without the race variable for the IDMS-Traceable creatinine methods. https://jasn.asnjournals.org/content//ASN.38071572 88 Glucose [Mass/Vol] 79 mg/dL 65 - 99 mg/dL [facility] Interpretation and review of laboratory results Abnormal [facility] Potassium [Moles/Vol] 3.8 mmol/L 3.4 - 5.1 mmol/L [facility] Protein [Mass/Vol] 5.7 g/dL Low 5.9 - 7.9 g/dL [facility] Sodium [Moles/Vol] 137 mmol/L 133 - 145 mmol/L [facility] Urea nitrogen [Mass/Vol] 5 mg/dL Low 8 - 25 mg/dL [facility] Albumin [Mass/Vol] 3.0 g/dL Low 3.5-5.0 [facility] Comment on above: Performed By: #### 2 4323-8 ####MELISA Galvan ([id number])[facility] ()[address] [place] [address] ALP (Bld) [Catalytic activity/Vol] 66 U/L Normal 35-125 [facility] Comment on above: Performed By: #### 2 4323-8 ####MELISA Galvan ([id number])[facility] ()[address] [place] [address] ALT [Catalytic activity/Vol] 17 U/L Normal 5-40 [facility] Comment on above: Performed By: #### 2 4323-8 ####MELISA Galvan ([id number])[facility] ()[address] [place] [address] Anion gap [Moles/Vol] 10 mmol/L Normal <=19 [facility] Comment on above: Performed By: #### 2 432-8 ####MELISA Galvan ([id number])[facility] ()[address] [place] [address] AST [Catalytic activity/Vol] 33 U/L Normal 5-40 [facility] Comment on above: Performed By: #### 2 432-8 ####MELISA Galvan (07490)[facility] ()[address] [place] [address] Bilirubin [Mass/Vol] 0.3 mg/dL Normal 0.1-1.2 [facility] Comment on above: Performed By: #### 2 432-8 ####MELISA Galvan (41968)[facility] ()[address] [place] [address] Calcium [Mass/Vol] 8.4 mg/dL Low 8.5-10.4 [facility] Comment on above: Performed By: #### 2 4323-8 ####MELISA Galvan ([id number])[facility] ()[address] [place] [address] Chloride [Moles/Vol] 108 mmol/L High 97-107 [facility] Comment on above: Performed By: #### 2 4323-8 ####MELISA Galvan (43830)[facility] ()[address] [place] [address] CO2 [Moles/Vol] 19 mmol/L Low 24-31 [facility] Comment on above: Performed By: #### 2 4323-8 ####MELISA Galvan (47531)[facility] ()[address] [place] [address] Creatinine [Mass/Vol] 0.80 mg/dL Normal 0.40-1.60 [facility] Comment on above: Performed By: #### 2 4323-8 ####MELISA Galvan (38746)[facility] ()[address] [place] [address] GFR/1.73 sq M.predicted MDRD (S/P/Bld) [Vol rate/Area] mL/min/{1.73_m2} Normal >60 [facility] Comment on above: Result Comment: Calc ulations of estimated GFR are performed using the 2020 CKD-EPI Study Refit equation without the race variable for the IDMS-Traceable creatinine methods. https://jasn.asnjournals.org/content//ASN.59747529 88 Performed By: #### 2 4323-8 ####MELISA Galvan (96261)[facility] ()[address] [place] [address] Glucose [Mass/Vol] 79 mg/dL Normal 65-99 [facility] Comment on above: Performed By: #### 2 4323-8 ####MELISA Galvan ([id number])[facility] ()[address] [place] [address] Potassium [Moles/Vol] 3.8 mmol/L Normal 3.4-5.1 [facility] Comment on above: Performed By: #### 2 4323-8 ####MELISA Galvan (55073)[facility] ()[address] [place] [address] Protein [Mass/Vol] 5.7 g/dL Low 5.9-7.9 [facility] Comment on above: Performed By: #### 2 4323-8 ####MELISA Galvan (42789)[facility] ()[address] [place] [address] Sodium [Moles/Vol] 137 mmol/L Normal 133-145 [facility] Comment on above: Performed By: #### 2 4323-8 ####MELISA Galvan ()[facility] ()[address] [facility] [place] [address] Urea nitrogen [Mass/Vol] 5 mg/dL Low 8-25 [facility] Comment on above: Performed By: #### 2 4323-8 ####MELISA Galvan ()[facility] ()[address] [place] [address] CBC panel Auto (Bld)on 03-17 Erythrocyte distribution width (RBC) [Ratio] 12.5 % 11.5 - 14.5 % [facility] Hematocrit (Bld) [Volume fraction] 34.9 % Low 36.0 - 46.0 % [facility] Hemoglobin (Bld) [Mass/Vol] 11.5 g/dL Low 12.0 - 16.0 g/dL [facility] Interpretation and review of laboratory results Abnormal [facility] MCH (RBC) [Entitic mass] 30.2 pg 26.0 - 34.0 pg [facility] MCHC (RBC) [Mass/Vol] 33.0 g/dL 32.0 - 36.0 g/dL [facility] MCV (RBC) [Entitic vol] 92 fL 80 - 100 fL [facility] Nucleated RBC/100 WBC (Bld) [Ratio] 0.0 % [facility] Platelets (Bld) [#/Vol] 268 10*3/uL [facility] RBC (Bld) [#/Vol] 3.81 10*6/uL Low [facility] WBC (Bld) [#/Vol] 5.0 10*3/uL [facility] Erythrocyte distribution width (RBC) [Ratio] 12.5 % Normal 11.5-14.5 [facility] Comment on above: Performed By: #### 5 8410-2 ####MELISA Galvan ()[facility] ()[address] [facility] [place] [address] Hematocrit (Bld) [Volume fraction] 34.9 % Low 36.0-46.0 [facility] Comment on above: Performed By: #### 5 8410-2 ####MELISA Galvan ([id number])[facility] ()[address] [place] [address] Hemoglobin (Bld) [Mass/Vol] 11.5 g/dL Low 12.0-16.0 [facility] Comment on above: Performed By: #### 5 8410-2 ####MELISA Galvan ()[facility] ()[address] [place] [address] MCH (RBC) [Entitic mass] 30.2 pg Normal 26.0-34.0 [facility] Comment on above: Performed By: #### 5 8410-2 ####MELISA Galvan ()[facility] ()[address] [place] [address] MCHC (RBC) [Mass/Vol] 33.0 g/dL Normal 32.0-36.0 [facility] Comment on above: Performed By: #### 5 8410-2 ####MELISA Galvan ([id number])[facility] ()[address] [place] [address] MCV (RBC) [Entitic vol] 92 fL Normal 80-100 [facility] Comment on above: Performed By: #### 5 8410-2 ####MELISA Galvan (35352)[facility] ()[address] [place] [address] Nucleated RBC/100 WBC (Bld) [Ratio] 0.0 /100 WBCs Normal 0.0-0.0 [facility] Comment on above: Performed By: #### 5 8410-2 ####MELISA Galvan (47431)[facility] ()[address] [place] [address] Platelets (Bld) [#/Vol] 268 x10*3/uL Normal 150-450 [facility] Comment on above: Performed By: #### 5 8410-2 ####MELISA Galvan ([id number])[facility] ()[address] [place] [address] RBC (Bld) [#/Vol] 3.81 x10*6/uL Low 4.00-5.20 [facility] Comment on above: Performed By: #### 5 8410-2 ####MELISA Galvan (49781)[facility] ()[address] [place] [address] WBC (Bld) [#/Vol] 5.0 x10*3/uL Normal 4.4-11.3 [facility] Comment on above: Performed By: #### 5 8410-2 ####MELISA Galvan (15759)[facility] ()[address] [facility] [place] [address] Comprehensive metabolic 2000 panelon 03-17-2023 Albumin [Mass/Vol] 3.3 g/dL Low 3.5 - 5.0 g/dL [facility] ALP (Bld) [Catalytic activity/Vol] 61 U/L 35 - 125 U/L [facility] ALT [Catalytic activity/Vol] 17 U/L 5 - 40 U/L [facility] Anion gap [Moles/Vol] 10 mmol/L NINF - 19 mmol/L [facility] AST [Catalytic activity/Vol] 31 U/L 5 - 40 U/L [facility] Bilirubin [Mass/Vol] 0.2 mg/dL 0.1 - 1.2 mg/dL [facility] Calcium [Mass/Vol] 8.1 mg/dL Low 8.5 - 10.4 mg/dL [facility] Chloride [Moles/Vol] 112 mmol/L High 97 - 107 mmol/L [facility] CO2 [Moles/Vol] 21 mmol/L Low 24 - 31 mmol/L [facility] Creatinine [Mass/Vol] 0.80 mg/dL 0.40 - 1.60 mg/dL [facility] eGFR - PINF [facility] Comment on above: Calculations of jessica mated GFR are performed using the 2020 CKD-EPI Study Refit equation without the race variable for the IDMS-Traceable creatinine methods. https://jasn.asnjournals.org/content//ASN.16256758 88 Glucose [Mass/Vol] 122 mg/dL High 65 - 99 mg/dL [facility] Interpretation and review of laboratory results Abnormal [facility] Potassium [Moles/Vol] 4.3 mmol/L 3.4 - 5.1 mmol/L [facility] Protein [Mass/Vol] 5.7 g/dL Low 5.9 - 7.9 g/dL Un [facility] Sodium [Moles/Vol] 143 mmol/L 133 - 145 mmol/L [facility] Urea nitrogen [Mass/Vol] 5 mg/dL Low 8 - 25 mg/dL [facility] Albumin [Mass/Vol] 3.3 g/dL Low 3.5-5.0 [facility] Comment on above: Performed By: #### 2 4323-8 ####MELISA Galvan (77294)[facility] ()[address] [place] [address] ALP (Bld) [Catalytic activity/Vol] 61 U/L Normal 35-125 [facility] Comment on above: Performed By: #### 2 4323-8 ####MELISA Galvan ([id number])[facility] ()[address] [place] [address] ALT [Catalytic activity/Vol] 17 U/L Normal 5-40 [facility] Comment on above: Performed By: #### 2 4323-8 ####MELISA Galvan (49240)[facility] ()[address] [place] [address] Anion gap [Moles/Vol] 10 mmol/L Normal <=19 [facility] Comment on above: Performed By: #### 2 4323-8 ####MELISA Galvan ([id number])[facility] ()[address] [place] [address] AST [Catalytic activity/Vol] 31 U/L Normal 5-40 [facility] Comment on above: Performed By: #### 2 4323-8 ####MELISA Galvan (49020)[facility] ()[address] [place] [address] Bilirubin [Mass/Vol] 0.2 mg/dL Normal 0.1-1.2 [facility] Comment on above: Performed By: #### 2 4323-8 ####MELISA Galvan (16292)[facility] ()[address] [place] [address] Calcium [Mass/Vol] 8.1 mg/dL Low 8.5-10.4 [facility] Comment on above: Performed By: #### 2 4323-8 ####MELISA Galvan (99878)[facility] ()[address] [place] [address] Chloride [Moles/Vol] 112 mmol/L High 97-107 [facility] Comment on above: Performed By: #### 2 4323-8 ####MELISA Galvan ([id number])[facility] ()[address] [place] [address] CO2 [Moles/Vol] 21 mmol/L Low 24-31 [facility] Comment on above: Performed By: #### 2 4323-8 ####MELISA Galvan ([id number])[facility] ()[address] [place] [address] Creatinine [Mass/Vol] 0.80 mg/dL Normal 0.40-1.60 [facility] Comment on above: Performed By: #### 2 4323-8 ####MELISA Galvan (24624)[facility] ()[address] [place] [address] GFR/1.73 sq M.predicted MDRD (S/P/Bld) [Vol rate/Area] mL/min/{1.73_m2} Normal >60 [facility] Comment on above: Result Comment: Calc ulations of estimated GFR are performed using the 2020 CKD-EPI Study Refit equation without the race variable for the IDMS-Traceable creatinine methods. https://jasn.asnjournals.org/content//ASN.04959436 88 Performed By: #### 2 4323-8 ####MELISA Galvan ([id number])[facility] ()[address] [place] [address] Glucose [Mass/Vol] 122 mg/dL High 65-99 [facility] Comment on above: Performed By: #### 2 4323-8 ####MELISA Galvan ([id number])[facility] ()[id number] [place] [address] Potassium [Moles/Vol] 4.3 mmol/L Normal 3.4-5.1 [facility] Comment on above: Performed By: #### 2 4323-8 ####MELISA Galvan ([id number])[facility] ()[id number] [place] [address] Protein [Mass/Vol] 5.7 g/dL Low 5.9-7.9 [facility] Comment on above: Performed By: #### 2 4323-8 ####MELISA Galvan ([id number])[facility] ()[id number] [place] [address] Sodium [Moles/Vol] 143 mmol/L Normal 133-145 [facility] Comment on above: Performed By: #### 2 4323-8 ####MELISA Galvan ([id number])[facility] ()[id number] [place] [address] Urea nitrogen [Mass/Vol] 5 mg/dL Low 8-25 [facility] Comment on above: Performed By: #### 2 4323-8 ####MELISA Galvan ([id number])[facility] ()[address] [place] [address] FL UPPER GI W DOUBLE CONTRAS T W SMALL BOWEL FOLLOW THROUGHon 03-17-2023 FL UPPER GI W DOUBLE CONTRAST W SMALL BOWEL FOLLOW THROUGH Interpreted By: Corie Garza, ADDENDUM: The exam was a single contrast upper GI with small-bowel follow-through Signed by: Corie Garza 04/01/2023 12:58 PM -------- ORIGINAL REPORT -------- Dictation workstation: [id number] Interpreted By: Corie Garza, STUDY: FL UPPER GI W DOUBLE CONTRAST W SMALL BOWEL FOLLOW THROUGH; 03/17/2023 4:40 pm INDICATION: Signs/Symptoms:abdo kerry pain. COMPARISON: None. ACCESSION NUMBER(S): [id number] ORDERING CLINICIAN: TIFFANIE MENDEZ TECHNIQUE: Multiple fluoroscopic spot images were obtained during a single contrast upper GI with KUB. 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 No evidence for obstruction.. MACRO: none Signed by: Corie Garza 03/17/2023 5:00 PM Dictation workstation: [id number] [facility] Interpreted By: Corie Garza, STUDY: FL UPPER GI W DOUBLE CONTRAST W SMALL BOWEL FOLLOW THROUGH; 03/17/2023 4:40 pm INDICATION: Signs/Symptoms:abdo kerry pain. COMPARISON: None. ACCESSION NUMBER(S): [id number] ORDERING CLINICIAN: TIFFANIE MENDEZ TECHNIQUE: Multiple fluoroscopic spot images were obtained during a single contrast upper GI with KUB. Total fluoroscopy time: 1 minute 32 seconds Radiation exposure (Reference Air Kerma): 99.36 mGy Images: 2 spot images 7 series and 2 delayed AP views of the abdomen FINDINGS: Research Consultant images demonstrate postsurgical changes from previous Tan-en-Y [...] Signs/Symptoms:abdo kerry pain. COMPARISON: None. ACCESSION NUMBER(S): [id number] ORDERING CLINICIAN: TIFFANIE MENDEZ TECHNIQUE: Multiple fluoroscopic spot images were obtained during a single contrast upper GI with KUB. Total fluoroscopy time: 1 minute 32 seconds Radiation exposure (Reference Air Kerma): 99.36 mGy Images: 2 spot images 7 series and 2 delayed AP views of the abdomen FINDINGS: Research Consultant images demonstrate postsurgical changes from previous Tan-en-Y [...] Corie Garza 03/17/2023 5:00 PM Dictation workstation: [id number] [facility] Work Phone: [facility] Work Phone: Radiology Study observation (narrative) [facility] Work Phone: XR CHEST 1 VIEWon 03-17-2023 XR CHEST 1 VIEW Interpreted By: Nya Ahmadi, STUDY: XR CHEST 1 VIEW 03/17/2023 7:09 pm INDICATION: Signs/Symptoms:S/p NG placement COMPARISON: 03/17/2023 done at 2:05 p.m. ACCESSION NUMBER(S): [id number] ORDERING CLINICIAN: TIFFANIE MENDEZ TECHNIQUE: AP erect view of the chest FINDINGS: The nasogastric tube has not changed in placement with the tip seen within the proximal thoracic esophagus. Heart and mediastinum are normally visualized. Lungs are clear. IMPRESSION: Distal tip of nasogastric tube in proximal thoracic esophagus just above the aortic arch. Signed by: Nya Ahmadi 03/17/2023 8:19 PM Dictation workstation: [id number] [facility] XR CHEST 1 VIEW Interpreted By: Corie Garza, STUDY: XR CHEST 1 VIEW; 03/17/2023 12:41 pm INDICATION: Signs/Symptoms:Stat us post NG tube placement. COMPARISON: None available ACCESSION NUMBER(S): [id number] ORDERING CLINICIAN: TIFFANIE MENDEZ FINDINGS: RESULT: Nasogastric [...] Corie Garza 03/17/2023 4:19 PM Dictation workstation: [id number] [facility] XR Chest Single viewon 03-17 Distal tip of nasogastric tube in proximal thoracic esophagus just above the aortic arch. Signed by: Nya Ahmadi 03/17/2023 8:19 PM Dictation workstation: [id number] [facility] Interpreted By: Nya Ahmadi, STUDY: XR CHEST 1 VIEW 03/17/2023 7:09 pm INDICATION: Signs/Symptoms:S/p NG placement COMPARISON: 03/17/2023 done at 2:05 p.m. ACCESSION NUMBER(S): [id number] ORDERING CLINICIAN: TIFFANIE MENDEZ TECHNIQUE: AP erect [...] 03/17/2023 done at 2:05 p.m. ACCESSION NUMBER(S): [id number] ORDERING CLINICIAN: TIFFANIE MENDEZ TECHNIQUE: AP erect view of the chest FINDINGS: The nasogastric tube has not changed in placement with the tip seen within the proximal thoracic esophagus. Heart and mediastinum are normally visualized. Lungs are clear. IMPRESSION: Distal tip of nasogastric tube in proximal thoracic esophagus just above the aortic arch. Signed by: Nya Ahmadi 03/17/2023 8:19 PM Dictation workstation: [id number] [facility] Work Phone: Radiology Study observation (narrative) [facility] Work Phone: Nasogastric tube tip is noted at the level of the upper esophagus at the level of the clavicular heads. The nasogastric tube removed itself from the patient soon after this exam. Signed by: Corie Garaz 03/17/2023 4:19 PM Dictation workstation: [id number] [facility] Interpreted By: Corie Garza, STUDY: XR CHEST 1 VIEW; 03/17/2023 12:41 pm INDICATION: Signs/Symptoms:Stat us post NG tube placement. COMPARISON: None available ACCESSION NUMBER(S): [id number] ORDERING CLINICIAN: TIFFANIE MENDEZ FINDINGS: RESULT: Nasogastric [...] tube placement. COMPARISON: None available ACCESSION NUMBER(S): [id number] ORDERING CLINICIAN: TIFFANIE MENDEZ FINDINGS: RESULT: Nasogastric [...] Corie Garza 03/17/2023 4:19 PM Dictation workstation: [id number] [facility] Work Phone: [facility] Work Phone: Radiology Study observation (narrative) [facility] Work Phone: XR Chest Single viewOrdered By: Nya Ahmadi on 03-17-2023 [facility] Work Phone: BMPon 03-16-2023 Anion gap [Moles/Vol] 11 mmol/L Normal 6-16 [facility] Comment on above: Performed By: #### 2 046968, 84618654, 7808149, 7600917, 9338371, 7068955 ####[facility] [address] [place] [address] BUN/Creat Ratio 10 No Units Normal 10-20 [facility] Comment on above: Performed By: #### 2 867419, 16484177, 4183425, 2758989, 9743174, 4867017 ####[facility] [address] [place] [address] Calcium [Mass/Vol] 8.5 mg/dL Low 8.9-11.1 [facility] Comment on above: Performed By: #### 2 948753, 80117179, 6685148, 7910085, 3249977, 8776627 ####[facility] [address] [place] [address] Chloride [Moles/Vol] 109 mmol/L Normal 101-111 [facility] Comment on above: Performed By: #### 2 997966, 38101359, 1266948, 6622145, 7322682, 4924986 ####[facility] [address] [place] [address] CO2 [Moles/Vol] 24 mmol/L Normal 21-31 [facility] Comment on above: Performed By: #### 2 133016, 02973842, 9707054, 3634482, 5359321, 1315616 ####[facility] [address] [place] [address] Creatinine [Mass/Vol] 0.8 mg/dL Normal 0.5-1.3 [facility] Comment on above: Performed By: #### 2 878087, 85777181, 7207837, 3462699, 5140655, 0109143 ####[facility] [address] [place] [address] Glucose [Mass/Vol] 77 mg/dL Normal 55-199 [facility] Comment on above: Performed By: #### 2 292320, 56184633, 5852404, 5806879, 5245658, 6048604 ####[facility] [address] [place] [address] Potassium [Moles/Vol] 3.7 mmol/L Normal 3.5-5.3 [facility] Comment on above: Performed By: #### 2 211134, 87418885, 9934520, 9887679, 2513939, 6383530 ####[facility] [address] [place] [address] Sodium [Moles/Vol] 140 mmol/L Normal 135-145 [facility] Comment on above: Performed By: #### 2 897085, 26061373, 6178394, 9455557, 3090358, 2530231 ####[facility] [address] [place] [address] Urea nitrogen [Mass/Vol] 8 mg/dL Normal 5-21 [facility] Comment on above: Performed By: #### 2 532104, 79897430, 3299279, 3322744, 0187499, 7344441 ####[facility] [address] [place] [address] CBC W Auto Differential pane l (Bld)on 03-16-2023 Basophils (Bld) [#/Vol] 0.07 10*3/uL [facility] Basophils/100 WBC (Bld) 1.4 % 0.0 - 2.0 % [facility] Eosinophils (Bld) [#/Vol] 0.50 10*3/uL [facility] Eosinophils/100 WBC (Bld) 9.9 % 0.0 - 6.0 % [facility] Erythrocyte distribution width (RBC) [Ratio] 12.3 % 11.5 - 14.5 % [facility] Hematocrit (Bld) [Volume fraction] 33.4 % Low 36.0 - 46.0 % [facility] Hemoglobin (Bld) [Mass/Vol] 10.8 g/dL Low 12.0 - 16.0 g/dL [facility] Immature granulocytes (Bld) [#/Vol] 0.01 10*3/uL [facility] Immature granulocytes/100 WBC (Bld) 0.2 % 0.0 - 0.9 % [facility] Comment on above: Immature Granulocyte Count (IG) includes promyelocytes, myelocytes and metamyelocytes but does not include bands. Percent differential counts (%) should be interpreted in the context of the absolute cell counts (cells/UL). Interpretation and review of laboratory results Abnormal [facility] Lymphocytes (Bld) [#/Vol] 1.70 10*3/uL [facility] Lymphocytes/100 WBC (Bld) 33.7 % 13.0 - 44.0 % [facility] MCH (RBC) [Entitic mass] 30.5 pg 26.0 - 34.0 pg [facility] MCHC (RBC) [Mass/Vol] 32.3 g/dL 32.0 - 36.0 g/dL [facility] MCV (RBC) [Entitic vol] 94 fL 80 - 100 fL [facility] Monocytes (Bld) [#/Vol] 0.31 10*3/uL [facility] Monocytes/100 WBC (Bld) 6.2 % 2.0 - 10.0 % [facility] Neutrophils (Bld) [#/Vol] 2.45 10*3/uL [facility] Comment on above: Percent differential counts (%) should be interpreted in the context of the absolute cell counts (cells/uL). Neutrophils/100 WBC (Bld) 48.6 % 40.0 - 80.0 % [facility] Nucleated RBC/100 WBC (Bld) [Ratio] 0.0 % [facility] Platelets (Bld) [#/Vol] 273 10*3/uL [facility] RBC (Bld) [#/Vol] 3.54 10*6/uL Low [facility] WBC (Bld) [#/Vol] 5.0 10*3/uL [facility] Basophils (Bld) [#/Vol] 0.07 x10*3/uL Normal 0.00-0.10 [facility] Comment on above: Performed By: #### 5 7021-8 ####MELISA Galvan ([id number])[facility] ()[address] [place] [address] Basophils/100 WBC (Bld) 1.4 % Normal 0.0-2.0 [facility] Comment on above: Performed By: #### 5 7021-8 ####MELISA Galvan ([id number])[facility] ()[address] [place] [address] Eosinophils (Bld) [#/Vol] 0.50 x10*3/uL Normal 0.00-0.70 [facility] Comment on above: Performed By: #### 5 7021-8 ####MELISA Galvan ([id number])[facility] ()[address] [place] [address] Eosinophils/100 WBC (Bld) 9.9 % Normal 0.0-6.0 [facility] Comment on above: Performed By: #### 5 7021-8 ####MELISA Galvan ([id number])[facility] ()[address] [place] [address] Erythrocyte distribution width (RBC) [Ratio] 12.3 % Normal 11.5-14.5 [facility] Comment on above: Performed By: #### 5 7021-8 ####MELISA Galvan ([id number])[facility] ()[address] [place] [address] Hematocrit (Bld) [Volume fraction] 33.4 % Low 36.0-46.0 [facility] Comment on above: Performed By: #### 5 7021-8 ####MELISA Galvan ([id number])[facility] ()[address] [place] [address] Hemoglobin (Bld) [Mass/Vol] 10.8 g/dL Low 12.0-16.0 [facility] Comment on above: Performed By: #### 5 7021-8 ####MELISA Galvan ([id number])[facility] ()[address] [place] [address] Immature granulocytes (Bld) [#/Vol] 0.01 x10*3/uL Normal 0.00-0.70 [facility] Comment on above: Performed By: #### 5 7021-8 ####MELISA Galvan ([id number])[facility] ()[address] [place] [address] Immature granulocytes/100 WBC (Bld) 0.2 % Normal 0.0-0.9 [facility] Comment on above: Result Comment: Janny ture Granulocyte Count (IG) includes promyelocytes, myelocytes and metamyelocytes but does not include bands. Percent differential counts (%) should be interpreted in the context of the absolute cell counts (cells/UL). Performed By: #### 5 7021-8 ####MELISA Galvan ([id number])[facility] ()[address] [place] [address] Lymphocytes (Bld) [#/Vol] 1.70 x10*3/uL Normal 1.20-4.80 [facility] Comment on above: Performed By: #### 5 7021-8 ####MELISA Galvan ([id number])[facility] ()[address] [place] [address] Lymphocytes/100 WBC (Bld) 33.7 % Normal 13.0-44.0 [facility] Comment on above: Performed By: #### 5 7021-8 ####MELISA Galvan ([id number])[facility] ()[address] [place] [address] MCH (RBC) [Entitic mass] 30.5 pg Normal 26.0-34.0 [facility] Comment on above: Performed By: #### 5 7021-8 ####MELISA Galvan ([id number])[facility] ()[address] [place] [address] MCHC (RBC) [Mass/Vol] 32.3 g/dL Normal 32.0-36.0 [facility] Comment on above: Performed By: #### 5 7021-8 ####MELISA Galvan ([id number])[facility] ()[address] [place] [address] MCV (RBC) [Entitic vol] 94 fL Normal 80-100 [facility] Comment on above: Performed By: #### 5 7021-8 ####MELISA Galvan ([id number])[facility] ()[address] [place] [address] Monocytes (Bld) [#/Vol] 0.31 x10*3/uL Normal 0.10-1.00 [facility] Comment on above: Performed By: #### 5 7021-8 ####MELISA Galvan ([id number])[facility] ()[address] [place] [address] Monocytes/100 WBC (Bld) 6.2 % Normal 2.0-10.0 [facility] Comment on above: Performed By: #### 5 7021-8 ####MELISA Galvan ([id number])[facility] ()[address] [place] [address] Neutrophils (Bld) [#/Vol] 2.45 x10*3/uL Normal 1.20-7.70 [facility] Comment on above: Result Comment: Perc ent differential counts (%) should be interpreted in the context of the absolute cell counts (cells/uL). Performed By: #### 5 7021-8 ####MELISA Galvan ([id number])[facility] ()[address] [place] [address] Neutrophils/100 WBC (Bld) 48.6 % Normal 40.0-80.0 [facility] Comment on above: Performed By: #### 5 7021-8 ####MELISA Galvan (47813)[facility] ()[address] [place] [address] Nucleated RBC/100 WBC (Bld) [Ratio] 0.0 /100 WBCs Normal 0.0-0.0 [facility] Comment on above: Performed By: #### 5 7021-8 ####MELISA Galvan ([id number])[facility] ()[address] [place] [address] Platelets (Bld) [#/Vol] 273 x10*3/uL Normal 150-450 [facility] Comment on above: Performed By: #### 5 7021-8 ####MELISA Galvan ([id number])[facility] ()[address] [place] [address] RBC (Bld) [#/Vol] 3.54 x10*6/uL Low 4.00-5.20 [facility] Comment on above: Performed By: #### 5 7021-8 ####MELISA Galvan (73556)[facility] ()[address] [place] [address] WBC (Bld) [#/Vol] 5.0 x10*3/uL Normal 4.4-11.3 [facility] Comment on above: Performed By: #### 5 7021-8 ####MELISA Galvan ([id number])[facility] ()[address] [place] [address] CBC w/ Auto Diffon 4 Basophil Absolute 0.1 E9/L Normal 0.0-0.2 [facility] Comment on above: Performed By: #### 2 063561, 41689242, 8990347, 7792324, 6183295, 4085920 ####[facility] [address] [place] [address] Basophils/100 WBC (Bld) 2.3 % High 0.0-2.0 [facility] Comment on above: Performed By: #### 2 997161, 00288881, 7453365, 7033900, 6869167, 8016062 ####[facility] [address] [place] [address] Eos Absolute 0.5 E9/L Normal 0.0-0.5 [facility] Comment on above: Performed By: #### 2 175901, 45082610, 5997041, 0146924, 7990402, 6781639 ####[address] [address] Eosinophils/100 WBC (Bld) 10.3 % High 0.0-8.0 [facility] Comment on above: Performed By: #### 2 571740, 26156107, 9727600, 7122139, 6290871, 8596362 ####[address] [address] Erythrocyte distribution width (RBC) [Ratio] 13.2 % Normal 10.9-14.2 [facility] Comment on above: Performed By: #### 2 828460, 93563555, 5162535, 6621612, 6698118, 5762211 ####[address] [place] [address] Hematocrit (Bld) [Volume fraction] 38.0 % Normal 34.0-46.0 [facility] Comment on above: Performed By: #### 2 651722, 81248556, 7790306, 0480555, 0244593, 8756270 ####[facility] [address] [place] [address] Hemoglobin (Bld) [Mass/Vol] 12.5 g/dL Normal 12.0-16.0 [facility] Comment on above: Performed By: #### 2 010803, 30335077, 1684962, 6758047, 9778937, 4006189 ####[facility] [address] [place] [address] Lymph Absolute 1.5 E9/L Normal 1.0-4.0 [facility] Comment on above: Performed By: #### 2 462819, 53787333, 8425012, 3102511, 7247879, 1662252 ####[place] [address] Lymphocytes/100 WBC (Bld) 32.0 % Normal 14.0-50.0 [facility] Comment on above: Performed By: #### 2 626579, 61343183, 5713546, 6126937, 6518142, 0652546 ####[place] [address] MCH (RBC) [Entitic mass] 29.7 pg Normal 27.0-34.0 [facility] Comment on above: Performed By: #### 2 618088, 95577095, 0791698, 5766669, 1761804, 0339131 ####[place] [address] MCHC (RBC) [Mass/Vol] 33.0 g/dL Normal 31.4-36.0 [facility] Comment on above: Performed By: #### 2 319287, 00536555, 4225066, 5875626, 8055151, 2060326 ####[place] [address] MCV (RBC) [Entitic vol] 89.8 fL Normal 80.0-100.0 [facility] Comment on above: Performed By: #### 2 829057, 83499962, 2303987, 9575572, 9027295, 2540133 ####[address] [address] [place] Absolute 0.3 E9/L Normal 0.2-1.[address] [facility] Comment on above: Performed By: #### 2 728773, 45190358, 4020353, 0211853, 6562618, 8344270 ####[facility] [address] [place] [address] Monocytes/100 WBC (Bld) 6.4 % Normal 4.0-14.0 [facility] Comment on above: Performed By: #### 2 104945, 06094429, 7974469, 3872289, 7566766, 6949057 ####[address] [address] Neutro Absolute 2.3 E9/L Normal 2.0-7.5 [facility] Comment on above: Performed By: #### 2 088498, 32947661, 0370339, 2931653, 7858691, 1997713 ####[address] [address] Neutro Auto 49.0 % Normal 36.0-75.0 [facility] Comment on above: Performed By: #### 2 287114, 84631314, 6650230, 9072771, 0593519, 0360920 ####[address] [address] Platelet 313.0 E9/L Normal 150.0-500.0 [facility] Comment on above: Performed By: #### 2 496516, 54195844, 5591855, 7745298, 4683308, 3204723 ####[facility] [address] [place] [address] Platelet mean volume (Bld) [Entitic vol] 8.7 fL Normal 6.4-10.8 [facility] Comment on above: Performed By: #### 2 380519, 41733760, 1670385, 9189012, 5939377, 2183625 ####[address] [address] RBC 4.2 E12/L Low 4.3-5.9 [facility] Comment on above: Performed By: #### 2 254442, 56588617, 0802325, 9280885, 3168689, 1017689 ####[facility] [address] [place] [address] WBC 4.8 E9/L Normal 4.0-11.0 [facility] Comment on above: Performed By: #### 2 803400, 68688999, 1258746, 2301487, 9370186, 9582239 ####[facility] [address] [place] [address] CHEMISTRYOrdered By: SYSTEM SYSTEM on 03-16-2023 Albumin [...] and IV contrast. COMPARISON: None.. ACCESSION NUMBER(S): [id number] ORDERING CLINICIAN: TIFFANIE MENDEZ TECHNIQUE: Oral contrast [...] Corie Garza 03/16/2023 5:46 PM Dictation workstation: [id number] Normal [facility] CT Abdomen and Pelvis W cont rast Brenden 03-16-2023 Patchy ground-glass densities in the bilateral lung bases may represent atelectasis. Multiple cystic lesions scattered throughout both lobes of the liver. Postsurgical changes of Tan-en-Y gastric bypass. MACRO: none Signed by: Corie Garza 03/16/2023 5:46 PM Dictation workstation: [id number] Interpreted By: Corie Garza, STUDY: CT ABDOMEN PELVIS W IV CONTRAST; 03/16/2023 5:27 pm INDICATION: Signs/Symptoms:abdo kerry pain - with oral and IV contrast. COMPARISON: None.. ACCESSION NUMBER(S): [id number] ORDERING CLINICIAN: TIFFANIE MENDEZ TECHNIQUE: Oral contrast [...] and IV contrast. COMPARISON: None.. ACCESSION NUMBER(S): [id number] ORDERING CLINICIAN: TIFFANIE MENDEZ TECHNIQUE: Oral contrast [...] Corie Garza 03/16/2023 5:46 PM Dictation workstation: [id number] [facility] Work Phone: Radiology Study observation (narrative) [facility] Work Phone: CT Abdomen and Pelvis W cont rast IVOrdered By: Corie Garza on 03-16-2023 [facility] Work Phone: Comprehensive metabolic 2000 panelon 03-16-2023 Albumin [Mass/Vol] 3.0 g/dL Low 3.5 - 5.0 g/dL Un [facility] ALP (Bld) [Catalytic activity/Vol] 58 U/L 35 - 125 U/L [facility] ALT [Catalytic activity/Vol] 13 U/L 5 - 40 U/L [facility] Anion gap [Moles/Vol] 10 mmol/L NINF - 19 mmol/L [facility] AST [Catalytic activity/Vol] 32 U/L 5 - 40 U/L [facility] Bilirubin [Mass/Vol] mg/dL 0.1 - 1.2 mg/dL [facility] Calcium [Mass/Vol] 7.9 mg/dL Low 8.5 - 10.4 mg/dL [facility] Chloride [Moles/Vol] 110 mmol/L High 97 - 107 mmol/L [facility] CO2 [Moles/Vol] 21 mmol/L Low 24 - 31 mmol/L Unive [facility] Creatinine [Mass/Vol] 0.80 mg/dL 0.40 - 1.60 mg/dL [facility] eGFR - PINF [facility] Comment on above: Calculations of jessica mated GFR are performed using the 2020 CKD-EPI Study Refit equation without the race variable for the IDMS-Traceable creatinine methods. https://jasn.asnjournals.org/content//ASN.17976173 88 Glucose [Mass/Vol] 82 mg/dL 65 - 99 mg/dL Uni [facility] Interpretation and review of laboratory results Abnormal [facility] Potassium [Moles/Vol] 3.7 mmol/L 3.4 - 5.1 mmol/L [facility] Protein [Mass/Vol] 5.5 g/dL Low 5.9 - 7.9 g/dL Un [facility] Sodium [Moles/Vol] 141 mmol/L 133 - 145 mmol/L [facility] Urea nitrogen [Mass/Vol] 8 mg/dL 8 - 25 mg/dL [facility] Albumin [Mass/Vol] 3.0 g/dL Low 3.5-5.0 [facility] Comment on above: Performed By: #### 2 4323-8 ####MELISA Galvan ([id number])[facility] ()[address] [place] [address] ALP (Bld) [Catalytic activity/Vol] 58 U/L Normal 35-125 [facility] Comment on above: Performed By: #### 2 4322-8 ####MELISA Galvan (81063)[facility] ()[address] [place] [address] ALT [Catalytic activity/Vol] 13 U/L Normal 5-40 [facility] Comment on above: Performed By: #### 2 432-8 ####MELISA Galvan ([id number])[facility] ()[address] [place] [address] Anion gap [Moles/Vol] 10 mmol/L Normal <=19 [facility] Comment on above: Performed By: #### 2 4323-8 ####MELISA Galvan ([id number])[facility] ()[address] [place] [address] AST [Catalytic activity/Vol] 32 U/L Normal 5-40 [facility] Comment on above: Performed By: #### 2 4323-8 ####MELISA Galvan ([id number])[facility] ()[id number] [place] [address] Bilirubin [Mass/Vol] mg/dL Normal 0.1-1.2 [facility] Comment on above: Performed By: #### 2 4323-8 ####MELISA Galvan ([id number])[facility] ()[address] [place] [address] Calcium [Mass/Vol] 7.9 mg/dL Low 8.5-10.4 [facility] Comment on above: Performed By: #### 2 4323-8 ####MELISA Galvan ([id number])[facility] [facility] ()[address] [place] [address] Chloride [Moles/Vol] 110 mmol/L High 97-107 [facility] Comment on above: Performed By: #### 2 432-8 ####MELISA Galvan ([id number])[facility] ()[address] [place] [address] CO2 [Moles/Vol] 21 mmol/L Low 24-31 [facility] Comment on above: Performed By: #### 2 4323-8 ####MELISA Galvan ([id number])[facility] ()[address] [place] [address] Creatinine [Mass/Vol] 0.80 mg/dL Normal 0.40-1.60 [facility] Comment on above: Performed By: #### 2 4323-8 ####MELISA Galvan ([id number])[facility] ()[address] [place] [address] GFR/1.73 sq M.predicted MDRD (S/P/Bld) [Vol rate/Area] mL/min/{1.73_m2} Normal >60 [facility] Comment on above: Result Comment: Calc ulations of estimated GFR are performed using the 2020 CKD-EPI Study Refit equation without the race variable for the IDMS-Traceable creatinine methods. https://jasn.asnjournals.org/content/early/ASN.77311393 88 Performed By: #### 2 4323-8 ####MELISA Galvan ([id number])[facility] ()[address] [place] [address] Glucose [Mass/Vol] 82 mg/dL Normal 65-99 [facility] Comment on above: Performed By: #### 2 4323-8 ####MELISA Galvan ([id number])[facility] ()[address] [place] [address] Potassium [Moles/Vol] 3.7 mmol/L Normal 3.4-5.1 [facility] Comment on above: Performed By: #### 2 4323-8 ####MELISA Galvan ([id number])[facility] ()[address] [place] [address] Protein [Mass/Vol] 5.5 g/dL Low 5.9-7.9 [facility] Comment on above: Performed By: #### 2 4323-8 ####MELISA Galvan ([id number])[facility] ()[address] [place] [address] Sodium [Moles/Vol] 141 mmol/L Normal 133-145 [facility] Comment on above: Performed By: #### 2 4323-8 ####MELISA Galvan ([id number])[facility] ()[address] [place] [address] Urea nitrogen [Mass/Vol] 8 mg/dL Normal 8-25 [facility] Comment on above: Performed By: #### 2 4323-8 ####MELISA Galvan ([id number])[facility] ()[address] [place] [address] Consent for Treatmenton 02-17 Consent for Treatment [id number] 972#1.00TIFF [facility] Discharge Instructionson Discharge Instructions [id number] 21#1.00TIFF [facility] Comment on above: Other Comment: wrong folder ED Clinical Summaryon 2023 ED Clinical Summary Normal [facility] ED Note-Nursingon 03-16-2023 ED Note-Nursing called report to Thu PRICE, . Normal [facility] ED Note-Physicianon 03-16-19 ED Note-Physician [facility] Comment on above: Result Comment: Elec tronically Signed By: Earnest Jett DO\.rene\Date and Time Signed: 03/16/23 11:17 EST ED Patient Education Noteon 03-16-2023 ED Patient Education Note Normal [facility] ED Patient Summaryon 024 ED Patient Summary Normal [facility] HEMATOLOGYOrdered By: SYSTEM SYSTEM on 03-16-2023 [...] Normal 80.0 - 100.0 fL Remisol Heme Newton Absolute 0.3 E9/L Normal 0.2 - 1.0 [...] 03-16-2023 Albumin [Mass/Vol] 3.8 g/dL Normal 3.3-5.0 [facility] Comment on above: Performed By: #### 2 596608, 66577873, 8016373, 7073300, 8212775, 0354559 ####[facility] [address] [place] [address] Albumin/Globulin [Mass ratio] 1.5 {ratio} Normal 1.1-2.2 [facility] Comment on above: Performed By: #### 2 697406, 21118028, 3495254, 5225061, 5504322, 0622700 ####[facility] [address] [place] [address] Alk Phos 62 Int._Unit/L Normal 21-98 [facility] Comment on above: Performed By: #### 2 931494, 53741013, 7421281, 6794739, 0251574, 1058417 ####[facility] [address] [place] [address] ALT 21 Int._Unit/L Normal 6-46 [facility] Comment on above: Performed By: #### 2 876574, 30503542, 3299479, 1359379, 1113838, 1436674 ####[facility] [address] [place] [address] AST 37 Int._Unit/L Normal 5-43 [facility] Comment on above: Performed By: #### 2 215917, 75124722, 4046814, 7509032, 9497191, 5144627 ####[facility] [address] [place] [address] Bili Direct 0.1 mg/dL Normal 0.0-0.4 [facility] Comment on above: Performed By: #### 2 841848, 52766223, 3644821, 9445243, 7623202, 0537833 ####[facility] [address] [place] [address] Bili Indirect 0.2 mg/dL Normal 0.1-0.[address] [facility] Comment on above: Performed By: #### 2 871697, 48817798, 5207057, 9961818, 2196496, 3379495 ####[facility] [address] [place] [address] Bili Total 0.3 mg/dL Normal 0.0-1.1 [facility] Comment on above: Performed By: #### 2 767337, 27011082, 5130338, 3342762, 9570933, 1150221 ####[address] [place] [address] Globulin (S) [Mass/Vol] 2.6 g/dL Normal 1.4-4.0 [facility] Comment on above: Performed By: #### 2 013481, 37778457, 7818429, 3598593, 5504007, 4235526 ####[address] [place] [address] Protein [Mass/Vol] 6.4 g/dL Normal 6.0-7.8 [facility] Comment on above: Performed By: #### 2 116668, 00245932, 5540492, 8360380, 3039537, 0348351 ####[address] [place] [address] Influenza virus A and B and SARS-CoV-2 (COVID-19) identified HANK+probe Nom (Resp)on 03-16-2023 FLUAV RNA HANK+probe Ql (Resp) Not detected Not Detected [facility] FLUBV RNA HANK+probe Ql (Resp) Not detected Not Detected [facility] Interpretation and review of laboratory results Normal [facility] SARS-CoV-2 (COVID-19) RNA HANK+probe Ql (Resp) Not detected Not Detected [facility] This assay has received FDA Emergency [...] and has been validated for use at [facility]. Negative results do not preclude [...] other patients by placing an add-on request. [facility] FLUAV RNA HANK+probe Ql (Resp) Not detected Normal Not Detected [facility] Comment on above: [...] and has been validated for use at [facility]. Negative results do not preclude COVID-19 infections [...] By: #### 5 2969-3 #### ALON Johnson ([id number]) [facility] ([facility]) [address] [place] [address] FLUBV RNA HANK+probe Ql (Resp) Not detected Normal Not Detected [facility] Comment on above: [...] and has been validated for use at [facility]. Negative results do not preclude [...] By: #### 5 2969-3 #### ALON Johnson ([id number]) [facility] ([facility]) [address] [place] [address] SARS-CoV-2 (COVID-19) RNA HANK+probe Ql (Resp) Not detected Normal Not Detected [facility] Comment on above: [...] and has been validated for use at [facility]. Negative results do not preclude [...] By: #### 5 2969-3 #### ALON Johnson ([id number]) [facility] ([facility]) [address] [place] [address] Lactic Acidon 03-16-2023 Lactic Acid Lvl 0.6 mmol/L Normal 0.5-2.2 [facility] Comment on above: Performed By: #### 2 791220, 25228024, 0720609, 1011387, 8332443, 2667521 ####[facility] [address] [place] [address] Lipase Levelon 03-16-2023 Lipase Lvl 95 unit/L High 13-58 [facility] Comment on above: Performed By: #### 2 898052, 81448906, 4446967, 7616020, 2473293, 6368537 ####[facility] [address] [place] [address] Pre-Arrival Noteon 4 Pre-Arrival Note Normal [facility] Transfer Documentson 024 Transfer Documents [id number] 04#1.00TIFF Normal [facility] eGFRon 03-16-2023 eGFR 99 mL/min/1.73 m2 Normal >=59 [facility] Comment on above: Order Comment: Order added by Discern Expert. Performed By: #### 2 350708, 01368422, 3698277, 9476707, 2479367, 3219496 ####[facility] [address] [place] [address] BB Draw & Holdon 03-15-2023 BB D&H Sample drawn for Blood Ba Normal [facility] Comment on above: Performed By: #### 1 2336729, 7506073, 79322261, 5805264, 69484397, 8057291, 56303947, 6064635, 3468984 ####[facility] [address] [place] [address] BMPon 03-15-2023 Anion gap [Moles/Vol] 12 mmol/L Normal 6-16 [facility] Comment on above: Performed By: #### 1 1394884, 6972097, 42915820, 1353856, 60723511, 9050379, 64490409, 7256067, 9048613 ####[facility] [address] [place] [address] BUN/Creat Ratio 10 No Units Normal 10-20 [facility] Comment on above: Performed By: #### 1 9179953, 3380369, 98284743, 3705036, 16866242, 3289572, 39538632, 1375192, 8194148 ####[facility] [address] [place] [address] Calcium [Mass/Vol] 8.5 mg/dL Low 8.9-11.1 [facility] Comment on above: Performed By: #### 1 7880339, 6297888, 23414397, 5266483, 38832909, 8759108, 13337512, 5963047, 1263050 ####[facility] [address] [place] [address] Chloride [Moles/Vol] 110 mmol/L Normal 101-111 [facility] Comment on above: Performed By: #### 1 7369540, 8505402, 16825312, 3532162, 55892857, 9298779, 02655869, 9827720, 0455169 ####[facility] [address] [place] [address] CO2 [Moles/Vol] 22 mmol/L Normal 21-31 [facility] Comment on above: Performed By: #### 1 1167976, 0691531, 62610993, 8533871, 16719299, 8823446, 77734245, 9432246, 3879374 ####[facility] [address] [place] [address] Creatinine [Mass/Vol] 0.8 mg/dL Normal 0.5-1.3 [facility] Comment on above: Performed By: #### 1 7901775, 3680757, 17740463, 2705624, 96726397, 0868997, 59518965, 7145278, 9717954 ####[facility] [address] [place] [address] Glucose [Mass/Vol] 79 mg/dL Normal 55-199 [facility] Comment on above: Performed By: #### 1 6223714, 8558082, 14009248, 7754078, 15046076, 7038314, 13612060, 6505246, 3441429 ####[facility] [address] [place] [address] Potassium [Moles/Vol] 3.6 mmol/L Normal 3.5-5.3 [facility] Comment on above: Performed By: #### 1 7884798, 1393159, 46244886, 6494525, 09508871, 0270552, 82488940, 7135090, 8495535 ####[facility] [address] [place] [address] Sodium [Moles/Vol] 140 mmol/L Normal 135-145 [facility] Comment on above: Performed By: #### 1 3092590, 4414467, 51068824, 5503192, 28737903, 7776950, 91097279, 7289648, 4431433 ####[facility] [address] [place] [address] Urea nitrogen [Mass/Vol] 8 mg/dL Normal 5-21 [facility] Comment on above: Performed By: #### 1 0342926, 9864900, 33607326, 2110423, 95360057, 7885418, 89408178, 0935026, 6571190 ####[facility] [address] [place] [address] CBC w/ Auto Diffon 4 Basophil Absolute 0.1 E9/L Normal 0.0-0.2 [facility] Comment on above: Performed By: #### 1 4243475, 3981130, 75166991, 8295092, 90700263, 7636052, 96269097, 6058470, 6244018 ####[facility] [address] [place] [address] Basophils/100 WBC (Bld) 0.9 % Normal 0.0-2.0 [facility] Comment on above: Performed By: #### 1 3276344, 7392741, 87595166, 6676381, 38811295, 9758219, 27454181, 8600807, 4133873 ####[facility] [address] [place] [address] Eos Absolute 0.6 E9/L High 0.0-0.5 [facility] Comment on above: Performed By: #### 1 3706629, 2692188, 86465960, 1814374, 73129855, 3704965, 37149491, 4790368, 9112297 ####[facility] [address] [place] [address] Eosinophils/100 WBC (Bld) 9.6 % High 0.0-8.0 [facility] Comment on above: Performed By: #### 1 6872011, 4145430, 84751839, 9200967, 67217829, 4416096, 08955061, 2512291, 3432532 ####[facility] [address] [place] [address] Erythrocyte distribution width (RBC) [Ratio] 13.2 % Normal 10.9-14.2 [facility] Comment on above: Performed By: #### 1 7918605, 8879009, 82354743, 5255316, 56359075, 2268382, 21574990, 0321557, 5976266 ####[address] [place] [address] Hematocrit (Bld) [Volume fraction] 36.0 % Normal 34.0-46.0 [facility] Comment on above: Performed By: #### 1 2363622, 2346910, 47975948, 7714679, 96320709, 5129241, 14699081, 0481554, 7464938 ####[facility] [address] [place] [address] Hemoglobin (Bld) [Mass/Vol] 12.2 g/dL Normal 12.0-16.0 [facility] Comment on above: Performed By: #### 1 8577733, 2845962, 18981324, 8082996, 10185478, 2481662, 39178616, 4897658, 3460051 ####[facility] [address] [place] [address] Lymph Absolute 2.0 E9/L Normal 1.0-4.0 [facility] Comment on above: Performed By: #### 1 7975870, 8366676, 11986137, 1043100, 40711090, 7857798, 33433397, 8625520, 8414401 ####[facility] [address] [place] [address] Lymphocytes/100 WBC (Bld) 32.4 % Normal 14.0-50.0 [facility] Comment on above: Performed By: #### 1 5044935, 1879316, 33494724, 1173278, 52815800, 0471556, 91740217, 9033993, 5787485 ####[address] [place] [address] MCH (RBC) [Entitic mass] 30.6 pg Normal 27.0-34.0 [facility] Comment on above: Performed By: #### 1 1797578, 7462919, 71004493, 3052387, 83978308, 0293555, 21599442, 6971225, 4510902 ####[address] [place] [address] MCHC (RBC) [Mass/Vol] 34.3 g/dL Normal 31.4-36.0 [facility] Comment on above: Performed By: #### 1 4780728, 6203653, 12671155, 3202323, 21393366, 7075418, 91679706, 3168799, 0026135 ####[address] [address] MCV (RBC) [Entitic vol] 89.0 fL Normal 80.0-100.0 [facility] Comment on above: Performed By: #### 1 5005155, 1480924, 09637308, 8658514, 68930212, 5198495, 55110464, 2568873, 6180253 ####[address] [address] Newton Absolute 0.3 E9/L Normal 0.2-1.[address] [facility] Comment on above: Performed By: #### 1 4724104, 2267279, 43742584, 7957312, 56827151, 7150359, 82996639, 4165239, 1284939 ####[address] [address] Monocytes/100 WBC (Bld) 5.6 % Normal 4.0-14.0 [facility] Comment on above: Performed By: #### 1 1929810, 7447020, 60331463, 4038089, 44485862, 4161217, 05006959, 7946546, 1007238 ####[facility] [address] [place] [address] Neutro Absolute 3.2 E9/L Normal 2.0-7.5 [facility] Comment on above: Performed By: #### 1 0276275, 6843368, 21490987, 0511683, 52670589, 2525137, 76234462, 7389951, 0696115 ####[address] [address] Neutro Auto 51.5 % Normal 36.0-75.0 [facility] Comment on above: Performed By: #### 1 4422458, 8338738, 02383985, 3859052, 06114966, 6845849, 48346529, 8010624, 1480031 ####[address] [address] Platelet 309.0 E9/L Normal 150.0-500.0 [facility] Comment on above: Result Comment: Demetra meneses with slide review Performed By: #### 1 3828858, 9492301, 64096119, 2908006, 80001784, 2764693, 14891139, 8846846, 1780507 ####[address] [address] Platelet mean volume (Bld) [Entitic vol] 9.1 fL Normal 6.4-10.8 [facility] Comment on above: Performed By: #### 1 7927743, 9063287, 78042841, 8316821, 59461937, 1524405, 63935746, 5229695, 6384005 ####[address] [place] [address] RBC 4.0 E12/L Low 4.3-5.9 [facility] Comment on above: Performed By: #### 1 6936501, 9931298, 91230239, 2138903, 21928189, 8500018, 66142590, 9602836, 6997647 ####[facility] [address] [place] [address] WBC 6.1 E9/L Normal 4.0-11.0 [facility] Comment on above: Performed By: #### 1 6840599, 2567325, 36773634, 5249863, 98081590, 5355535, 86218098, 9177268, 5073952 ####[facility] [address] [place] [address] CHEMISTRYOrdered By: SYSTEM SYSTEM on 03-15-2023 Lactic [...] Sensitivity Troponin I Instructions For Use, Alan [place], September 2017) Urea nitrogen [Mass/Vol] 8 mg/dL Normal 5 - 21 mg/dL Remisol Chem Urea nitrogen/Creatinine [Mass ratio] 10 mg/mg Normal 10 - 20 [facility] COAGULATIONOrdered By: Storm Baca on 03-15-2023 aPTT Coag (PPP) [Time] 32.3 s Normal 25.1 - 36.5 second(s) [facility] Auto Coag Comment on [...] the same coagulation reagent and instrumentation as [facility]. Currently there are no coagulation studies available worldwide for children to 14 days, and no normal ranges. Heparin therapeutic range (represented by Anti-Factor Xa activity of 0.2 - 0.4 U/mL) corresponds to PTT of 56.6 - 109.0 sec. INR Coag (PPP) [Relative time] 1.1 {INR} Invalid Interpretation Code [facility] Comment on above: Interpretive Data: I NR results are specifically intended to assess patients stabilized on long-term Anticoagulation therapy suggested INR s Less Intensive Anticoagulation 2.0 3.0 Conventional Range 3.0 4.5 PT Coag (PPP) [Time] 12.6 s High 9.4 - 12.5 second(s) [facility] Auto Coag Comment on [...] the same coagulation reagent and instrumentation as [facility]. Currently there are no coagulation studies available worldwide for children to 14 days, and no normal ranges. CT Abdomen/Pelvis w/o Contra ston 03-15-2023 CT Abdomen/Pelvis w/o Contrast Normal [facility] Consent for Treatmenton 02-16 Consent for Treatment [id number] 3B#1.00TIFF Normal [facility] Discharge Instructionson Discharge Instructions [id number] 236#1.00TIFF Normal [facility] ED Clinical Summaryon 2023 ED Clinical Summary Normal [facility] ED Note-Physicianon 03-15-19 ED Note-Physician Normal [facility] Comment on above: Result Comment: Elec tronically Signed By: Earnest Jett DO\.br\Date and Time Signed: 03/15/23 17:31 EST ED Patient Education Noteon 03-15-2023 ED Patient Education Note Normal [facility] ED Patient Summaryon 024 ED Patient Summary Normal [facility] EMS Documentationon 03-15-19 24 EMS Documentation Please click on link to see report Normal [facility] Comment on above: Result Comment: [...] Normal 80.0 - 100.0 fL Remisol Heme Newton Absolute 0.3 E9/L Normal 0.2 - 1.0 [...] 03-15-2023 Albumin [Mass/Vol] 3.6 g/dL Normal 3.3-5.0 [facility] Comment on above: Performed By: #### 1 4028491, 4576462, 06462934, 8222120, 82387842, 0586460, 19635731, 9149379, 6807422 ####[address] [place] [address] Albumin/Globulin [Mass ratio] 1.4 {ratio} Normal 1.1-2.2 [facility] Comment on above: Performed By: #### 1 6603499, 9140509, 06899193, 7511875, 83977275, 3671835, 51185706, 0745260, 4309820 ####[facility] [address] [place] [address] Alk Phos 64 Int._Unit/L Normal 21-98 [facility] Comment on above: Performed By: #### 1 9033316, 7963834, 23513629, 1074386, 01348533, 2182248, 73852905, 3235005, 1553620 ####[facility] [address] [place] [address] ALT 20 Int._Unit/L Normal 6-46 [facility] Comment on above: Performed By: #### 1 9025464, 4633307, 76190174, 5149151, 48536117, 4162810, 46017763, 5859965, 4401817 ####[facility] [address] [place] [address] AST 35 Int._Unit/L Normal 5-43 [facility] Comment on above: Performed By: #### 1 2891071, 6684828, 01987997, 3824726, 30177875, 2115357, 27627351, 7308107, 1354107 ####[address] [place] [address] Bili Direct 0.0 mg/dL Normal 0.0-0.4 [facility] Comment on above: Performed By: #### 1 9249426, 4551190, 32760660, 8764998, 32140961, 1672726, 55106931, 9996114, 5596480 ####[address] [place] [address] Bili Indirect 0.2 mg/dL Normal 0.1-0.[address] [facility] Comment on above: Performed By: #### 1 8079920, 6831732, 65964575, 9717689, 91700171, 2382135, 11720499, 2336690, 6700710 ####[address] [address] Bili Total 0.2 mg/dL Normal 0.0-1.1 [facility] Comment on above: Performed By: #### 1 1827581, 0299282, 14644668, 8120404, 86040828, 2105125, 09453853, 1145879, 8992423 ####[facility] [address] [place] [address] Globulin (S) [Mass/Vol] 2.6 g/dL Normal 1.4-4.0 [facility] Comment on above: Performed By: #### 1 9458687, 1603447, 30787180, 8224015, 55648694, 6653090, 54192002, 8738283, 9515040 ####[address] [place] [address] Protein [Mass/Vol] 6.2 g/dL Normal 6.0-7.8 [facility] Comment on above: Performed By: #### 1 0072242, 0016469, 42973642, 5449443, 15319889, 6073540, 91269713, 0326921, 7779665 ####[facility] [address] [place] [address] [facility] Record[facility] 2023 Home Health Records [id number] 1#1.00TIFF Normal [facility] Lactic Acidon 03-15-2023 Lactic Acid Lvl 0.7 mmol/L Normal 0.5-2.2 [facility] Comment on above: Performed By: #### 1 4060597, 4103446, 71454793, 3763510, 64693842, 2143817, 02319622, 8618640, 0584467 ####[facility] [address] [place] [address] Lipase Levelon 03-15-2023 Lipase Lvl 115 unit/L High 13-58 [facility] Comment on above: Performed By: #### 1 2425281, 6854961, 02363894, 8983861, 36679112, 1357691, 71000756, 2456542, 1890360 ####[facility] [address] [place] [address] PT & PTTon 03-15-2023 aPTT Coag (PPP) [Time] 32.3 second(s) Normal 25.1-36.5 [facility] Comment on above: Result Comment: [...] the same coagulation reagent and instrumentation as [facility]. Currently there are no coagulation studies available worldwide for children to 14 days, and no normal ranges. Heparin therapeutic range (represented by Anti-Factor Xa activity of 0.2 - 0.4 U/mL) corresponds to PTT of 56.6 - 109.0 sec. Performed By: #### 1 5845617, 8928657, 60431395, 1164302, 12331570, 4386142, 70001633, 0789027, 2216568 ####[facility] [address] [place] [address] INR Coag (PPP) [Relative time] 1.1 {INR} Invalid Interpretation Code [facility] Comment on above: Result Comment: INR results are specifically intended to assess patients stabilized on long-term Anticoagulation therapy suggested INR?s ?Less Intensive Anticoagulation? 2.0 ? 3.0Conventional Range 3.0 ? 4.5 Performed By: #### 1 1154616, 8939379, 00279901, 4854697, 43272683, [id number], [id number], [id number], [id number] ####[facility] [id number] [place] [address] PT Coag (PPP) [Time] 12.6 second(s) High 9.4-12.5 [facility] Comment on above: Result Comment: [...] the same coagulation reagent and instrumentation as [facility] [place]. Currently there are no coagulation studies available worldwide for children to 14 days, and no normal ranges. Performed By: #### 1 [id number], [id number], [id number], [id number], [id number], [id number], [id number], [id number], [id number] ####[facility] [address] [place] [address] Pre-Arrival Noteon Pre-Arrival Note Normal [facility] Troponin 0 Hr.on 03-15-2023 Troponin I.cardiac [Mass/Vol] ng/mL Low 10.10-27.10 [facility] Comment on above: Result Comment: The 95% CI (Confidence Interval) PPV (Positive Predictive Value) for myocardial infarction in females is 38 pg/mL, in males 51 pg/mL. The results should be used in conjunction with clinical conditions of myocardial infarction.(Access High Sensitivity Troponin I Instructions For Use, Alan Twined, September 2017) Performed By: #### 1 [id number], [id number], [id number], 0155251, [id number], 7972330, 83591835, 6990566, 3508149 ####[facility] [address] [place] [address] UA With Cult Reflexon 2023 Bilirubin Ql (U) Negative Normal Negative [facility] Comment on above: Performed By: #### 1 [id number] ####[facility] [address] [place] [address] Clarity (U) CLEAR Normal Clear [facility] Comment on above: Performed By: #### 1 [id number] ####[facility] [address] [place] [address] Color (U) ORANGE Abnormal Yellow [facility] Comment on above: Performed By: #### 1 [id number] ####[facility] [address] [place] [address] Crystals LM Ql (Urine sed) Present Normal [facility] Comment on above: Performed By: #### 1 [id number] ####[facility] [address] [place] [address] Epithelial cells.squamous LM.HPF (Urine sed) [#/Area] 0-2 Normal 0-2 [facility] Comment on above: Performed By: #### 1 [id number] ####[facility] [address] [place] [address] Glucose Test strip (U) [Mass/Vol] TRACE Abnormal Negative [facility] Comment on above: Performed By: #### 1 [id number] ####[address] [address] Hemoglobin Ql (U) Negative Normal Negative [facility] Comment on above: Performed By: #### 1 [id number] ####[address] [place] [address] Ketones (U) [Mass/Vol] Negative Normal Negative [facility] Comment on above: Performed By: #### 1 [id number] ####[address] [address] [place].plasma/Lith ium.RBC (Bld) [Mass ratio] 0-3 Normal 0-3 [facility] Comment on above: Performed By: #### 1 [id number] ####[address] [address] Nitrite Ql (U) See Comment Normal Negative [facility] Comment on above: Result Comment: Test Not Performed Due To Interfering Substance Performed By: #### 1 [id number] ####[address] [address] pH (U) 7.0 [pH] Invalid Interpretation Code 5.0-9.0 [facility] Comment on above: Performed By: #### 1 3152015 ####[address] [address] Protein (U) [Mass/Vol] 1+ Abnormal Negative [facility] Comment on above: Performed By: #### 1 5959432 ####[address] [address] Specific gravity (U) [Rel density] 1.010 Invalid Interpretation Code 1.005-1.030 [facility] Comment on above: Performed By: #### 1 [id number] ####[facility] [address] [place] [address] Type of Urine collection method Clean Catch Normal [facility] Comment on above: Performed By: #### 1 [id number] ####[facility] [address] [place] [address] Urobilinogen Qn (U) See Comment Normal 0.0-1.[address] [facility] Comment on above: Result Comment: Test Not Performed Due To Interfering Substance Performed By: #### 1 7602466 ####[facility] [address] [place] [address] WBC Auto Ql (U) Negative Normal Negative [facility] Comment on above: Performed By: #### 1 [id number] ####[facility] [address] [place] [address] WBC LM.HPF (Urine sed) [#/Area] 0-5 Normal 0-5 [facility] Comment on above: Performed By: #### 1 [id number] ####[facility] [address] [place] [address] URINALYSISOrdered By: Alcira Lee on 03-15-2023 Bilirubin Ql (U) Negative (03/15/23 2:43 PM) Normal Negative [facility] UA Auto SS Clarity (U) Clear (03/15/23 2:43 PM) Normal Clear [facility] UA Auto SS Color (U) [place] *ABN* (03/15/23 2:43 PM) Invalid Interpretation Code Yellow [facility] UA Auto SS Crystals LM Ql (Urine sed) Present (03/15/23 2:43 PM) Normal [facility] UA Auto SS Epithelial cells.squamous LM.HPF (Urine sed) [#/Area] 0-2 /HPF Normal 0-2/HPF [facility] UA Auto SS Glucose Test strip (U) [Mass/Vol] Trace *ABN* (03/15/23 2:43 PM) Invalid Interpretation Code Negative [facility] UA Auto SS Hemoglobin Ql (U) Negative (03/15/23 2:43 PM) Normal Negative [facility] UA Auto SS Ketones (U) [Mass/Vol] Negative (03/15/23 2:43 PM) Normal Negative [facility] UA Auto SS [place].plasma/Lith ium.RBC (Bld) [Mass ratio] 0-3 /HPF Normal [...] Viewon 03-15 XR Chest Single View Normal [facility] eGFRon 03-15-2023 eGFR 99 mL/min/1.73 m2 Normal >=59 [facility] Comment on above: Order Comment: Order added by Discern Expert. Performed By: #### 1 [id number], 0076146, [id number], 6070181, 07994112, 1312896, 54781809, 3782175, 3306675 ####[facility] [address] [place] [address] Basic metabolic 2000 panelon 03-10-2023 Anion gap [Moles/Vol] 11 mmol/L NINF - 19 mmol/L [facility] Calcium [Mass/Vol] 8.0 mg/dL Low 8.5 - 10.4 mg/dL [facility] Chloride [Moles/Vol] 108 mmol/L High 97 - 107 mmol/L [facility] CO2 [Moles/Vol] 22 mmol/L Low 24 - 31 mmol/L [facility] Creatinine [Mass/Vol] 0.60 mg/dL 0.40 - 1.60 mg/dL [facility] eGFR - PINF [facility] Comment on above: Calculations of jessica mated GFR are performed using the 2020 CKD-EPI Study Refit equation without the race variable for the IDMS-Traceable creatinine methods. https://jasn.asnjournals.org/content//ASN.56212773 88 Glucose [Mass/Vol] 89 mg/dL 65 - 99 mg/dL [facility] Interpretation and review of laboratory results Abnormal [facility] Potassium [Moles/Vol] 3.7 mmol/L 3.4 - 5.1 mmol/L [facility] Sodium [Moles/Vol] 141 mmol/L 133 - 145 mmol/L [facility] Urea nitrogen [Mass/Vol] 4 mg/dL Low 8 - 25 mg/dL [facility] Anion gap [Moles/Vol] 11 mmol/L Normal <=19 [facility] Comment on above: Performed By: #### 5 2969-3 #### ALON Johnson ([id number]) [facility] ([facility]) [address] [place] [address] Calcium [Mass/Vol] 8.0 mg/dL Low 8.5-10.4 [facility] Comment on above: Performed By: #### 5 2969-3 #### ALON Johnson ([id number]) [facility] ([facility]) [address] [place] [address] Chloride [Moles/Vol] 108 mmol/L High 97-107 [facility] Comment on above: Performed By: #### 5 2969-3 #### ALON Johnson ([id number]) [facility] ([facility]) [address] [place] [address] CO2 [Moles/Vol] 22 mmol/L Low 24-31 [facility] Comment on above: Performed By: #### 5 2969-3 #### ALON Johnson ([id number]) [facility] ([facility]) [address] [place] [address] Creatinine [Mass/Vol] 0.60 mg/dL Normal 0.40-1.60 [facility] Comment on above: Performed By: #### 5 2969-3 #### ALON Johnson ([id number]) [facility] ([facility]) [address] [place] [address] GFR/1.73 sq M.predicted MDRD (S/P/Bld) [Vol rate/Area] mL/min/{1.73_m2} Normal >60 [facility] Comment on above: Result Comment: Calc ulations of estimated GFR are performed using the 2020 CKD-EPI Study Refit equation without the race variable for the IDMS-Traceable creatinine methods. https://jasn.asnjournals.org/content/early//ASN.80358782 88 Performed By: #### 5 2969-3 #### ALON Johnson ([id number]) [facility] ([facility]) [address] [place] [address] Glucose [Mass/Vol] 89 mg/dL Normal 65-99 [facility] Comment on above: Performed By: #### 5 2969-3 #### ALON Johnson ([id number]) [facility] ([facility]) [address] [place] [address] Potassium [Moles/Vol] 3.7 mmol/L Normal 3.4-5.1 [facility] Comment on above: Performed By: #### 5 2969-3 #### ALON Johnson ([id number]) [facility] ([facility]) [address] [place] [address] Sodium [Moles/Vol] 141 mmol/L Normal 133-145 [facility] Comment on above: Performed By: #### 5 2969-3 #### ALON Johnson ([id number]) [facility] ([facility]) [id number] [place], [place] [address] Urea nitrogen [Mass/Vol] 4 mg/dL Low 8-25 [facility] Comment on above: Performed By: #### 5 2969-3 #### AOLN Johnson ([id number]) [facility] ([facility]) [id number] [place], [place] [address] CBC panel Auto (Bld)on 03-10 Erythrocyte distribution width (RBC) [Ratio] 12.9 % 11.5 - 14.5 % [facility] Hematocrit (Bld) [Volume fraction] 31.3 % Low 36.0 - 46.0 % [facility] Hemoglobin (Bld) [Mass/Vol] 10.6 g/dL Low 12.0 - 16.0 g/dL [facility] Interpretation and review of laboratory results Abnormal [facility] MCH (RBC) [Entitic mass] 30.7 pg 26.0 - 34.0 pg [facility] MCHC (RBC) [Mass/Vol] 33.9 g/dL 32.0 - 36.0 g/dL [facility] MCV (RBC) [Entitic vol] 91 fL 80 - 100 fL [facility] Nucleated RBC/100 WBC (Bld) [Ratio] 0.0 % [facility] Platelets (Bld) [#/Vol] 215 10*3/uL [facility] RBC (Bld) [#/Vol] 3.45 10*6/uL [facility] WBC (Bld) [#/Vol] 4.0 10*3/uL [facility] Erythrocyte distribution width (RBC) [Ratio] 12.9 % Normal 11.5-14.5 [facility] Comment on above: Performed By: #### 5 2969-3 #### ALON Johnson ([id number]) [facility] ([facility]) [address] [place] [address] Hematocrit (Bld) [Volume fraction] 31.3 % Low 36.0-46.0 [facility] Comment on above: Performed By: #### 5 2969-3 #### ALON Johnson ([id number]) [facility] ([facility]) [address] [place] [address] Hemoglobin (Bld) [Mass/Vol] 10.6 g/dL Low 12.0-16.0 [facility] Comment on above: Performed By: #### 5 2969-3 #### ALON Johnson ([id number]) [facility] ([facility]) [address] [place] [address] MCH (RBC) [Entitic mass] 30.7 pg Normal 26.0-34.0 [facility] Comment on above: Performed By: #### 5 2969-3 #### ALON Johnson ([id number]) [facility] ([facility]) [address] [place] [address] MCHC (RBC) [Mass/Vol] 33.9 g/dL Normal 32.0-36.0 [facility] Comment on above: Performed By: #### 5 2969-3 #### ALON Johnson ([id number]) [facility] ([facility]) [address] [place] [address] MCV (RBC) [Entitic vol] 91 fL Normal 80-100 [facility] Comment on above: Performed By: #### 5 2969-3 #### ALON Johnson ([id number]) [facility] ([facility]) [address] [place] [address] Nucleated RBC/100 WBC (Bld) [Ratio] 0.0 /100 WBCs Normal 0.0-0.0 [facility] Comment on above: Performed By: #### 5 2969-3 #### ALON Johnson ([id number]) [facility] ([facility]) [address] [place] [address] Platelets (Bld) [#/Vol] 215 x10*3/uL Normal 150-450 [facility] Comment on above: Performed By: #### 5 2969-3 #### ALON AMBROSIO L ([id number]) [facility] ([facility]) [id number] [place] [address] RBC (Bld) [#/Vol] 3.45 x10*6/uL Low 4.00-5.20 [facility] Comment on above: Performed By: #### 5 2969-3 #### ALON PRECIADOER L ([id number]) [facility] ([facility]) [address] [place] [address] WBC (Bld) [#/Vol] 4.0 x10*3/uL Low 4.4-11.3 [facility] Comment on above: Performed By: #### 5 2969-3 #### ALON AMBROSIO L ([id number]) [facility] ([facility]) [address] [place] [address] Gastrointestinal pathogens i dentified HANK+probe Nom (Stl)Ordered By: Edwige Bronson on 03-10-2023 Campylobacter Group Not detected Not Detected [facility] E. coli stx1 gene HANK+probe Ql (Stl) Not detected Not Detected [facility] E. coli stx2 gene HANK+probe Ql (Stl) Not detected Not Detected [facility] Interpretation and review of laboratory results Normal [facility] Norovirus genogroup I and II RNA HANK+probe Nom (Stl) Not detected Not Detected [facility] Rotavirus RNA HANK+probe Nom (Stl) Not detected Not Detected [facility] Salmonella species Not detected Not Detected [facility] Shigella sp DNA HANK+probe Ql (Unsp spec) Not detected Not Detected [facility] Vibrio Group Not detected Not Detected [facility] Y. enterocolitica DNA HANK+probe Ql (Stl) Not detected Not Detected [facility] Glucose Test strip manual (B ld) [Mass/Vol]on 03-10-2023 Glucose [Mass/Vol] 104 mg/dL High 74 - 99 mg/dL [facility] Interpretation and review of laboratory results Abnormal [facility] Glucose [Mass/Vol] 104 mg/dL High 74-99 [facility] Comment on above: Performed By: #### 5 2969-3 #### ALON Johnson ([id number]) [facility] ([facility]) [address] [place] [address] Glucose [Mass/Vol] 82 mg/dL 74 - 99 mg/dL [facility] Glucose [Mass/Vol] 109 mg/dL High 74 - 99 mg/dL [facility] Interpretation and review of laboratory results Normal [facility] Interpretation and review of laboratory results Abnormal [facility] Glucose [Mass/Vol] 109 mg/dL High 74-99 [facility] Comment on above: Performed By: #### 5 2969-3 #### ALON Johnson ([id number]) [facility] ([facility]) [address] [place] [address] Glucose [Mass/Vol] 84 mg/dL 74 - 99 mg/dL [facility] Interpretation and review of laboratory results Normal [facility] Glucose [Mass/Vol] 84 mg/dL Normal 74-99 [facility] Comment on above: Performed By: #### 5 2969-3 #### ALON Johnson ([id number]) [facility] ([facility]) [address] [place] [address] Glucose [Mass/Vol] 79 mg/dL 74 - 99 mg/dL [facility] Interpretation and review of laboratory results Normal [facility] Glucose [Mass/Vol] 79 mg/dL Normal 74-99 [facility] Comment on above: Performed By: #### 5 2969-3 #### ALON Johnson ([id number]) [facility] ([facility]) [address] [place] [address] Basic metabolic 2000 panelon 03-09-2023 Anion gap [Moles/Vol] 10 mmol/L NINF - 19 mmol/L [facility] Calcium [Mass/Vol] 8.3 mg/dL Low 8.5 - 10.4 mg/dL [facility] Chloride [Moles/Vol] 105 mmol/L 97 - 107 mmol/L [facility] CO2 [Moles/Vol] 20 mmol/L Low 24 - 31 mmol/L [facility] Creatinine [Mass/Vol] 0.60 mg/dL 0.40 - 1.60 mg/dL [facility] eGFR - PINF [facility] Comment on above: Calculations of jessica mated GFR are performed using the 2020 CKD-EPI Study Refit equation without the race variable for the IDMS-Traceable creatinine methods. https://jasn.asnjournals.org/content//ASN.80531483 88 Glucose [Mass/Vol] 98 mg/dL 65 - 99 mg/dL [facility] Interpretation and review of laboratory results Abnormal [facility] Potassium [Moles/Vol] 3.7 mmol/L 3.4 - 5.1 mmol/L [facility] Sodium [Moles/Vol] 135 mmol/L 133 - 145 mmol/L [facility] Urea nitrogen [Mass/Vol] mg/dL Low 8 - 25 mg/dL [facility] Comment on above: Result rechecked [facility] Anion gap [Moles/Vol] 10 mmol/L Normal <=19 [facility] Comment on above: Performed By: #### 2 4321-2 ####MELISA Galvan ([id number])[facility] ()[address] [facility] [place] [address] Calcium [Mass/Vol] 8.3 mg/dL Low 8.5-10.4 [facility] Comment on above: Performed By: #### 2 4321-2 ####MELISA Galvan ([id number])[facility] ()[address] [place] [facility] [place] [address] Chloride [Moles/Vol] 105 mmol/L Normal 97-107 [facility] Comment on above: Performed By: #### 2 4321-2 ####MELISA Galvan ([id number])[facility] ()[address] [place] [address] CO2 [Moles/Vol] 20 mmol/L Low 24-31 [facility] Comment on above: Performed By: #### 2 4321-2 ####MELISA Galvan ([id number])[facility] ()[address] [place] [address] Creatinine [Mass/Vol] 0.60 mg/dL Normal 0.40-1.60 [facility] Comment on above: Performed By: #### 2 432-2 ####MELISA Galvan ([id number])[facility] ()[address] [place] [address] GFR/1.73 sq M.predicted MDRD (S/P/Bld) [Vol rate/Area] mL/min/{1.73_m2} Normal >60 [facility] Comment on above: Result Comment: Calc ulations of estimated GFR are performed using the 2020 CKD-EPI Study Refit equation without the race variable for the IDMS-Traceable creatinine methods. https://jasn.asnjournals.org/content//ASN.35559213 88 Performed By: #### 2 4321-2 ####MELISA Galvan ([id number])[facility] ()[address] [place] [address] Glucose [Mass/Vol] 98 mg/dL Normal 65-99 [facility] Comment on above: Performed By: #### 2 4321-2 ####MELISA Galvan ([id number])[facility] ()[address] [place] [address] Potassium [Moles/Vol] 3.7 mmol/L Normal 3.4-5.1 [facility] Comment on above: Performed By: #### 2 4321-2 ####MELISA Galvan ([id number])[facility] ()[address] [place] [address] Sodium [Moles/Vol] 135 mmol/L Normal 133-145 [facility] Comment on above: Performed By: #### 2 4321-2 ####MELISA Galvan ([id number])[facility] ()[address] [place] [address] Urea nitrogen [Mass/Vol] mg/dL Low 8-25 [facility] Comment on above: Result Comment: Resu lt rechecked Performed By: #### 2 4321-2 ####MELISA Galvan ([id number])[facility] ()[address] [place] [address] C. difficile toxin A+B tcdA+ tcdB genes HANK+probe Ql (Stl)on 03-09-2023 Interpretation and review of laboratory results Normal [facility] This test is an FDA-cleared real-time [...] performed more than once per 7 days. [facility] C. difficile, PCRon 03-09-19 24 C. difficile toxin A+B tcdA+tcdB genes HANK+probe Ql (Stl) Not detected Not Detected [facility] CBC panel Auto (Bld)on 03-09 Erythrocyte distribution width (RBC) [Ratio] 12.7 % 11.5 - 14.5 % [facility] Hematocrit (Bld) [Volume fraction] 34.6 % Low 36.0 - 46.0 % [facility] Hemoglobin (Bld) [Mass/Vol] 11.7 g/dL Low 12.0 - 16.0 g/dL [facility] Interpretation and review of laboratory results Abnormal [facility] MCH (RBC) [Entitic mass] 30.8 pg 26.0 - 34.0 pg [facility] MCHC (RBC) [Mass/Vol] 33.8 g/dL 32.0 - 36.0 g/dL [facility] MCV (RBC) [Entitic vol] 91 fL 80 - 100 fL [facility] Nucleated RBC/100 WBC (Bld) [Ratio] 0.0 % [facility] Platelets (Bld) [#/Vol] 226 10*3/uL [facility] RBC (Bld) [#/Vol] 3.80 10*6/uL Low [facility] WBC (Bld) [#/Vol] 6.8 10*3/uL [facility] Erythrocyte distribution width (RBC) [Ratio] 12.7 % Normal 11.5-14.5 [facility] Comment on above: Performed By: #### 5 8410-2 ####MELISA Galvan ([id number])[facility] ()[address] [place] [address] Hematocrit (Bld) [Volume fraction] 34.6 % Low 36.0-46.0 [facility] Comment on above: Performed By: #### 5 8410-2 ####MELISA Galvan ([id number])[facility] ()[address] [place] [address] Hemoglobin (Bld) [Mass/Vol] 11.7 g/dL Low 12.0-16.0 [facility] Comment on above: Performed By: #### 5 8410-2 ####MELISA Galvan ([id number])[facility] ()[address] [place] [address] MCH (RBC) [Entitic mass] 30.8 pg Normal 26.0-34.0 [facility] Comment on above: Performed By: #### 5 8410-2 ####MELISA Galvan ([id number])[facility] ()[address] [place] [address] MCHC (RBC) [Mass/Vol] 33.8 g/dL Normal 32.0-36.0 [facility] Comment on above: Performed By: #### 5 8410-2 ####MELISA Galvan ([id number])[facility] ()[address] [place] [address] MCV (RBC) [Entitic vol] 91 fL Normal 80-100 [facility] Comment on above: Performed By: #### 5 8410-2 ####MELISA Galvan ([id number])[facility] ()[address] [place] [address] Nucleated RBC/100 WBC (Bld) [Ratio] 0.0 /100 WBCs Normal 0.0-0.0 [facility] Comment on above: Performed By: #### 5 8410-2 ####MELISA Galvan ([id number])[facility] ()[address] [place] [address] Platelets (Bld) [#/Vol] 226 x10*3/uL Normal 150-450 [facility] Comment on above: Performed By: #### 5 8410-2 ####MELISA Galvan ([id number])[facility] ()[address] [place] [address] RBC (Bld) [#/Vol] 3.80 x10*6/uL Low 4.00-5.20 [facility] Comment on above: Performed By: #### 5 8410-2 ####MELISA Galvan ([id number])[facility] ()[address] [place] [address] WBC (Bld) [#/Vol] 6.8 x10*3/uL Normal 4.4-11.3 [facility] Comment on above: Performed By: #### 5 8410-2 ####MELISA Galvan ([id number])[facility] ()[address] [place] [address] Clostridioides difficile tox in A+B tcdA+tcdB geneson 03-09-2023 C. difficile toxin A+B tcdA+tcdB genes HANK+probe Ql (Stl) Clostridioides difficile toxin A+B tcdA+tcdB genes Not Detected Normal Not Detected [facility] Comment on above: [...] Performed By: #### 8 0685-1 ####MELISA Galvan ([id number])[facility] ()[address] [place] [address] Gastrointestinal pathogens i dentifiedon 03-09-2023 Gastrointestinal pathogens [...] Rotavirus RNA Not Detected Normal Not Detected [facility] Comment on above: Performed By: #### 5 2969-3 #### ALON Johnson ([id number]) [facility] ([facility]) [address] [place] [address] Glucose Test strip manual (B ld) [Mass/Vol]on 03-09-2023 Glucose [Mass/Vol] 82 mg/dL Normal 74-99 [facility] Comment on above: Performed By: #### 5 2969-3 #### ALON Johnson ([id number]) [facility] ([facility]) [address] [place] [address] Glucose [Mass/Vol] 91 mg/dL 74 - 99 mg/dL [facility] Interpretation and review of laboratory results Normal [facility] Glucose [Mass/Vol] 91 mg/dL Normal 74-99 [facility] Comment on above: Performed By: #### 5 2969-3 #### ALON Johnson ([id number]) [facility] ([facility]) [address] [place] [address] Glucose [Mass/Vol] 83 mg/dL 74 - 99 mg/dL [facility] Interpretation and review of laboratory results Normal [facility] Glucose [Mass/Vol] 83 mg/dL Normal 74-99 [facility] Comment on above: Performed By: #### 2 341-6 ####MELISA Galvan ([id number])[facility] ()[address] [place] [address] Glucose [Mass/Vol] 82 mg/dL 74 - 99 mg/dL [facility] Interpretation and review of laboratory results Normal [facility] Glucose [Mass/Vol] 82 mg/dL Normal 74-99 [facility] [facility] Comment on above: Performed By: #### 2 341-6 ####MELISA Galvan ([id number])[facility] ()[address] [place] [address] Glucose [Mass/Vol] 120 mg/dL High 74 - 99 mg/dL [facility] Interpretation and review of laboratory results Abnormal [facility] Glucose [Mass/Vol] 120 mg/dL High 74-99 [facility] Comment on above: Performed By: #### 2 341-6 ####MELISA Galvan ([id number])[facility] ()[address] [place] [address] Glucose [Mass/Vol] 62 mg/dL Low 74 - 99 mg/dL [facility] Interpretation and review of laboratory results Abnormal [facility] Glucose [Mass/Vol] 62 mg/dL Low 74-99 [facility] Comment on above: Performed By: #### 2 341-6 ####MELISA Galvan ([id number])[facility] ()[address] [place] [address] Basic metabolic 2000 panelon 03-08-2023 Anion gap [Moles/Vol] 8 mmol/L NINF - 19 mmol/L [facility] Calcium [Mass/Vol] 8.2 mg/dL Low 8.5 - 10.4 mg/dL [facility] Chloride [Moles/Vol] 106 mmol/L 97 - 107 mmol/L [facility] CO2 [Moles/Vol] 22 mmol/L Low 24 - 31 mmol/L [facility] Creatinine [Mass/Vol] 0.70 mg/dL 0.40 - 1.60 mg/dL [facility] eGFR - PINF [facility] Comment on above: Calculations of jessica mated GFR are performed using the 2020 CKD-EPI Study Refit equation without the race variable for the IDMS-Traceable creatinine methods. https://jasn.asnjournals.org/content//ASN.77828411 88 Glucose [Mass/Vol] 91 mg/dL 65 - 99 mg/dL [facility] Interpretation and review of laboratory results Abnormal [facility] Potassium [Moles/Vol] 3.7 mmol/L 3.4 - 5.1 mmol/L [facility] Sodium [Moles/Vol] 136 mmol/L 133 - 145 mmol/L [facility] Urea nitrogen [Mass/Vol] 3 mg/dL Low 8 - 25 mg/dL [facility] Anion gap [Moles/Vol] 8 mmol/L Normal <=19 [facility] Comment on above: Performed By: #### 2 4323-8 #### MELISA Galvan ([id number]) [facility] () [address] [place] [address] Calcium [Mass/Vol] 8.2 mg/dL Low 8.5-10.4 [facility] Comment on above: Performed By: #### 2 4323-8 #### MELISA Galvan ([id number]) [facility] () [address] [place] [address] Chloride [Moles/Vol] 106 mmol/L Normal 97-107 [facility] Comment on above: Performed By: #### 2 4323-8 #### MELISA Galvan ([id number]) [facility] () [address] [place] [address] CO2 [Moles/Vol] 22 mmol/L Low 24-31 [facility] Comment on above: Performed By: #### 2 4323-8 #### MELISA Galvan ([id number]) [facility] () [address] [place] [address] Creatinine [Mass/Vol] 0.70 mg/dL Normal 0.40-1.60 [facility] Comment on above: Performed By: #### 2 4323-8 #### MELISA Galvan ([id number]) [facility] () [address] [place] [address] GFR/1.73 sq M.predicted MDRD (S/P/Bld) [Vol rate/Area] mL/min/{1.73_m2} Normal >60 [facility] Comment on above: Result Comment: Calc ulations of estimated GFR are performed using the 2020 CKD-EPI Study Refit equation without the race variable for the IDMS-Traceable creatinine methods. https://jasn.asnjournals.org/content/early/ASN.98443695 88 Performed By: #### 2 4323-8 #### MELISA Galvan ([id number]) [facility] () [address] [place] [address] Glucose [Mass/Vol] 91 mg/dL Normal 65-99 [facility] Comment on above: Performed By: #### 2 4323-8 #### MELISA Galvan ([id number]) [facility] () [address] [place] [address] Potassium [Moles/Vol] 3.7 mmol/L Normal 3.4-5.1 [facility] Comment on above: Performed By: #### 2 4323-8 #### MELISA Galvan ([id number]) [facility] () [address] [place] [address] Sodium [Moles/Vol] 136 mmol/L Normal 133-145 [facility] Comment on above: Performed By: #### 2 4323-8 #### MELISA Galvan ([id number]) [facility] () [address] [place] [address] Urea nitrogen [Mass/Vol] 3 mg/dL Low 8-25 [facility] Comment on above: Performed By: #### 2 4323-8 #### MELISA Galvan ([id number]) [facility] () [address] [place] [address] CBC panel Auto (Bld)on 03-08 Erythrocyte distribution width (RBC) [Ratio] 12.8 % 11.5 - 14.5 % [facility] Hematocrit (Bld) [Volume fraction] 32.2 % Low 36.0 - 46.0 % [facility] Hemoglobin (Bld) [Mass/Vol] 10.9 g/dL Low 12.0 - 16.0 g/dL [facility] Interpretation and review of laboratory results Abnormal [facility] MCH (RBC) [Entitic mass] 31.3 pg 26.0 - 34.0 pg [facility] MCHC (RBC) [Mass/Vol] 33.9 g/dL 32.0 - 36.0 g/dL [facility] MCV (RBC) [Entitic vol] 93 fL 80 - 100 fL [facility] Nucleated RBC/100 WBC (Bld) [Ratio] 0.0 % [facility] Platelets (Bld) [#/Vol] 171 10*3/uL [facility] RBC (Bld) [#/Vol] 3.48 10*6/uL [facility] WBC (Bld) [#/Vol] 4.2 10*3/uL [facility] Erythrocyte distribution width (RBC) [Ratio] 12.8 % Normal 11.5-14.5 [facility] Comment on above: Performed By: #### 2 4323-8 #### MELISA Galvan ([id number]) [facility] () [address] [place] [address] Hematocrit (Bld) [Volume fraction] 32.2 % Low 36.0-46.0 [facility] Comment on above: Performed By: #### 2 4323-8 #### MELISA Galvan ([id number]) [facility] () [address] [place] [address] Hemoglobin (Bld) [Mass/Vol] 10.9 g/dL Low 12.0-16.0 [facility] Comment on above: Performed By: #### 2 432-8 #### MELISA Galvan ([id number]) [facility] () [address] [place] [address] MCH (RBC) [Entitic mass] 31.3 pg Normal 26.0-34.0 [facility] Comment on above: Performed By: #### 2 432-8 #### MELISA Galvan ([id number]) [facility] () [address] [place] [address] MCHC (RBC) [Mass/Vol] 33.9 g/dL Normal 32.0-36.0 [facility] Comment on above: Performed By: #### 2 432-8 #### MELISA Galvan ([id number]) [facility] () [address] [place] [address] MCV (RBC) [Entitic vol] 93 fL Normal 80-100 [facility] Comment on above: Performed By: #### 2 4323-8 #### MELISA Galvan ([id number]) [facility] () [address] [place] [address] Nucleated RBC/100 WBC (Bld) [Ratio] 0.0 /100 WBCs Normal 0.0-0.0 [facility] Comment on above: Performed By: #### 2 4323-8 #### MELISA Galvan ([id number]) [facility] () [address] [place] [address] Platelets (Bld) [#/Vol] 171 x10*3/uL Normal 150-450 [facility] Comment on above: Performed By: #### 2 4323-8 #### MELISA Galvan ([id number]) [facility] () [address] [place] [address] RBC (Bld) [#/Vol] 3.48 x10*6/uL Low 4.00-5.20 [facility] Comment on above: Performed By: #### 2 4323-8 #### MELISA Galvan (09694) [facility] () [address] [place] [address] WBC (Bld) [#/Vol] 4.2 x10*3/uL Low 4.4-11.3 [facility] Comment on above: Performed By: #### 2 4323-8 #### MELISA Galvan (60343) [facility] () [address] [place] [address] Glucose Test strip manual (B ld) [Mass/Vol]on 03-08-2023 Glucose [Mass/Vol] 89 mg/dL 74 - 99 mg/dL [facility] Interpretation and review of laboratory results Normal [facility] Glucose [Mass/Vol] 89 mg/dL Normal 74-99 [facility] Comment on above: Performed By: #### 2 341-6 ####MELISA Galvan ([id number])[facility] ()[address] [facility] [place] [place] [address] Glucose [Mass/Vol] 85 mg/dL 74 - 99 mg/dL [facility] Interpretation and review of laboratory results Normal [facility] Glucose [Mass/Vol] 85 mg/dL Normal 74-99 [facility] Comment on above: Performed By: #### 2 341-6 ####MELISA Galvan ([id number])[facility] ()[address] [place] [address] Glucose [Mass/Vol] 151 mg/dL High 74 - 99 mg/dL [facility] Interpretation and review of laboratory results Abnormal [facility] Glucose [Mass/Vol] 151 mg/dL High 74-99 [facility] Comment on above: Performed By: #### 2 341-6 ####MELISA Galvan ([id number])[facility] ()[address] [place] [address] Glucose [Mass/Vol] 89 mg/dL 74 - 99 mg/dL [facility] Interpretation and review of laboratory results Normal [facility] Glucose [Mass/Vol] 89 mg/dL Normal 74-99 [facility] Comment on above: Performed By: #### 2 4323-8 #### MELISA Galvan ([id number]) [facility] () [address] [place] [address] Glucose [Mass/Vol] 97 mg/dL 74 - 99 mg/dL [facility] Interpretation and review of laboratory results Normal [facility] Glucose [Mass/Vol] 97 mg/dL Normal 74-99 [facility] Comment on above: Performed By: #### 2 4323-8 #### MELISA Galvan ([id number]) [facility] () [address] [place] [address] Glucose [Mass/Vol] 102 mg/dL High 74 - 99 mg/dL [facility] Interpretation and review of laboratory results Abnormal [facility] Glucose [Mass/Vol] 102 mg/dL High 74-99 [facility] Comment on above: Performed By: #### 2 4323-8 #### MELISA Galvan ([id number]) [facility] () [address] [place] [address] Surgical pathology studyOrde red By: Melisa Mc on 03-08-2023 Laboratory comment John (Report) n3qxdVOvDLNbh0rpQGM mbGFuZzEwMzNcZnRuYm pcdWMxIHtccnRmMVxzc 5DgM0QbUoCsAVbmytAv XGRlZmxhbmcxMDMzXGZ 0bmJqXHVjMVxkZWZmMH kzEh6swFBrrXfaCiMkI PTfb0gwqwHKWQcaGVDL BSm4c2xiDMWeElP4zKK uWIdvT7hyklZeaFRbP1 Nhl7FeKOb9fM60QASgm S7sjTWnDDbgumJtPtR8 OVbeJFLuKpO3VXHrlRA kAMRlJ7cjIUBrBFfpVV XuBGutwFGkLMZ7cLnjt 1A2uEYssGPfvMvwPeCr WhAkFcCDd6EkVGh5aNl bV9TrSXEwTqT2rCBvKZ MeXUhfYBKmDOZrqiU3m W42GBvfvpC4hVTcq3Nm g41ds565nR6ttWCyZXP 3MTIyNDBccGFwZXJoMT N9PFZspLJoA7lgNnVlz RIcX5QzSaQipJDmQ1Wc UbRnsMGuA8GwHvLojFV bPWHaeOK6ZCoal715UE A9UbGrOO7dL3Kuz4E0o F9qeWCsJNXdgXSsIwAg BQLzxf1zuOUtXNjxb2T rFYI7wqO3lJKhoXGjIE PqKU83Gnxcv6BpRwhtP WA3CVGrlbHxx7Oiu0wb KqXjjhIsE5zgT2BsRBI oZWFkXHBnYnJkcmZvb3 Hbt3SkbGKtiKo3p8ifA FWyXZLqwWmju5xvMGX9 COYmI5L9kOSvn2mgKUc yRFLjlOP0toL4OSmqFA OacuX9gfW3VCgpVFMdj WN0rlX4WAfgAQUiBiY4 aaU2YUuoUHNfRUG1OxH iDIDme8OyzqlnIpPaq7 YumXRjWEnhE20aw801P AFpcnWeG2mzaGDgwyzr uLNujozvNQtzblK8MTF sXHBsYWluXGYxXGZzMj BcbGFuZzEwMzNcaGlja FxmMVxkYmNoXGYxXGxv X0txXuMnKdLcQMRSmBM 4eTXqn8bzbwD2bRWzTT 7aJFUwdIAlacJuv5C3B VL5eGOkaY3qcCTqMYHv tJBwxeIxvz70mHKhyLN 1MGErICPypLIezE9rCA UeOZSKpB5kpMADbqUsb zEpPBUjxDtfov6GfYQc hm4yyOAcR8MaeOrdvLD zIHRoYXQgdGhleSBoYX YlQUFzyimce3RzEZWgg OAzW5EmSO7nRKPwqg28 [facility] Work Phone: Pathology report Cancer Narrative Surgical Pathology Case: [id number] Authorizing Provider: Sherry Magaña MD Collected: 03/05/2023 1125 Ordering Location: [facility] [place] Received: 03/05/2023 1314 Center OR Pathologist: Melisa Mc MD Specimen: LIGAMENT, Median Arcuate Ligament [facility] Work Phone: Pathology report final diagnosis Narrative s4rjbJLfTNDjhKWoBUT wNFxhbnNpXHNwbHRwZ3 SvbfftGEkmES3cRU4sw GxhdHRveWVuXGRlZmYw a7otp488zZEgy5wuTVA DBCjfUNKJWDr1x5maUY UGuayfxXe8pGurZ08cc 3R1RvxsE3vdDWLwPAjb QHBxFFspqCTxFKz6AWZ hcGVydzEyMjQwXHBhcG WzsDM0DWUfRA1gmhfnM GqxFNsnQKQlafK0HNAr cQSdQ1FzCHPiZA7kbyg sFXE3ANxcXMKrATW7Cd FaDSTls6Efxmh6EaPga Fp8t0ecDPXoDAFhiQvd c8deWUF2VEUxeRVrN2f wwT9zYTHfFP8erspsx6 auSYlrOSqsFYOktYP8r dM1ATPeuRWqM7ZwuO6y NDQwXHBhcmRccGxhaW5 cZjFcZnMyMlxjZjFccG VoIB1VKFzQGvAGYzLRH TCXVDvRD5WJAF3DOLBF IOXJQ1rGFziuuPLzRCA lSlLHpVDjm4XxcTBpa7 ZoWK5eqNGseHGozrUjv 94bhBqvLpTmB25oqpBp l4GmwQxyiAdgiYMwfYy an4YaNJFhb7B2OIziQ8 xpbmljYWxseSBtZWRpY Q3zIZMreVK2EBPetQmh rTPykOOepD0gux2uUD0 ccGFyfQ== [facility] Work Phone: Pathology report gross observation Narrative r5laiBAmLDZqcRKAYVT 5LCChSQ5uxTzwyUg8rM zjGPNxbmA3aQVwCPuob 4btJLK0k5jvhqTRXwfr UBCuZJ8gRFowSPBjWK6 nZmUwXGRlZmYxXHBhcG VydzEyMjQwXHBhcGVya WJ5ILTaFQ4smqwyINom OFggQCWqvuT7FZObrHH gJ8IqCJTgXJ8bsmxnUP V8GLEGWyrsQq0txPDsc CANCntcZjFcZmNoYXJz GPAyZXPckGjuC1Bxr0K cVHe3aP5Hv6ixZvnwS8 cpcqVkqCJdRa0ayDQEq etlfZa8aG9SIZWnW2Ih FE0Ah3jhWVUmgVJaRPB 5MFxfq3hvTJsaZQV1MO CtHDVpQGOsSN0UInLqU VtxNSObNZYfOYd4HRp0 QFUGZWJtTjA4FYX8UIq 6NQw1RSbkkusvSEj2VC SfORvrkXUdPI2xeEdfN gddpNiew6FmqACqFZYj IFxcaWQgNTEwMDIgXFx ySzSFDmUgNaG0LjVtLU GiYwM2YXn5UDNVXwXuP aOoJBVkFhl6BGYlYXg4 NAr8MFeGKfY3IiJ3EHi 1ObvuPHY6DgEbSMptrB BcXHQgMiBcXHNzIDMgX HovmLQvCE3urHthHYZo LI7UQCAzWLqaINOlgBP VYWH7FE7xCISDDuykpH VmHWOsHKqzkAXcB7boF jJcZnMyMCBBOiBSZWNl aXZlZCBmcmVzaCBsYWJ lbGVkIHdpdGggdGhlIH VwdQdykdKsbmBtLH3pW LRvJVWaq0ZngLUbtPMc pO2yLDLqHV8sIJBpYPB bUG8zZUZdrWO7GEOaoE dhbWVudCIsIGFyZSAyI GlycmVndWxhciBhbmQg mOEqWOCfBJDct5D1NGC ie8H8BWKrbpMpbSZhoZ BmzQDcj9HhwS5sMOUsT UCmnJV5NTFnDnO4WIAr CnEfnQViblTsD9xzBLz wgMKbIKMJoUIko1EjZ2 ikOD7hcUJin9DqbFyem mVkIGFuZCBlbnRpcmVs cIGdfXChoAD2KZTcfX0 aFJSpDMQqEDW6PM6sfD JtSN9XQXLISOPcjzTKS chdNOWdKEqYus0tfzAe yIZlXOD8hC8aIHBkvnA mkk2hUHNtqBapwGTrMR 4TTK6tlvRei5w2eZIHb 3NwaXRhbHMgTGFrZSBX FBM8GL1vIPgyDPanK0J bjHCySUBwjzZTUsW9JI FpEBR2I8nwLUYLhpRqm PGhyCIpUQ6RC7ruoV21 F1kvoJciH1wtutW4HGQ 0BRwrSHZkMSbhn9WuRZ xlcGljWHNhMzAgDQpQa V9mTLisJOI0VLnnPESs LTYwMjUgIEZheDogKDQ 8ARmqJoYzZGE4JTGPDj dwxJnyMdZvbONpJeE7C QGluAOcVKQ5PX8heBxu GGJcF0TfB7ZbovF2KGA sgpJARsafRXIyDZ0TXU DgYZdhYP5BvJ== [facility] Work Phone: Pathology report relevant history Narrative m2wodPCnPLHuo9rqCEK mbGFuZzEwMzNcZnRuYm j0ODYznfV6Lnf7BLJxG OawmS9yLEEwTLacP2xo mtYnnYAuM4Tiy3BzYTf 5qD0dqOgnaV4jCgZnWc TuSNZQrzIap3SxHQpdK 15hi2qaFahfPMJlOCUx yMNsIBBcM4EyvJIwyPc aOY8zqlSdt3ydIUIybF KdZPGLPz4PR1CsJGwDH dpiYQ7weFGfGH8= [facility] Work Phone: [facility] Work Phone: Basic metabolic 2000 panelon 03-07-2023 Anion gap [Moles/Vol] 7 mmol/L NINF - 19 mmol/L [facility] Calcium [Mass/Vol] 8.0 mg/dL Low 8.5 - 10.4 mg/dL [facility] Chloride [Moles/Vol] 111 mmol/L High 97 - 107 mmol/L [facility] CO2 [Moles/Vol] 21 mmol/L Low 24 - 31 mmol/L [facility] Creatinine [Mass/Vol] 0.70 mg/dL 0.40 - 1.60 mg/dL [facility] eGFR - PINF [facility] Comment on above: Calculations of jessica mated GFR are performed using the 2020 CKD-EPI Study Refit equation without the race variable for the IDMS-Traceable creatinine methods. https://jasn.asnjournals.org/content//ASN.55690134 88 Glucose [Mass/Vol] 100 mg/dL High 65 - 99 mg/dL [facility] Interpretation and review of laboratory results Abnormal [facility] Potassium [Moles/Vol] 3.9 mmol/L 3.4 - 5.1 mmol/L [facility] Sodium [Moles/Vol] 139 mmol/L 133 - 145 mmol/L [facility] Urea nitrogen [Mass/Vol] 4 mg/dL Low 8 - 25 mg/dL [facility] Anion gap [Moles/Vol] 7 mmol/L Normal <=19 [facility] Comment on above: Performed By: #### 5 7021-8 #### MELISA Galvan ([id number]) [facility] () [address] [place] [address] Calcium [Mass/Vol] 8.0 mg/dL Low 8.5-10.4 [facility] Comment on above: Performed By: #### 5 7021-8 #### MELISA Galvan ([id number]) [facility] () [address] [place] [address] Chloride [Moles/Vol] 111 mmol/L High 97-107 [facility] Comment on above: Performed By: #### 5 7021-8 #### MELISA Galvan ([id number]) [facility] () [address] [place] [address] CO2 [Moles/Vol] 21 mmol/L Low 24-31 [facility] Comment on above: Performed By: #### 5 7021-8 #### MELISA Galvan ([id number]) [facility] () [address] [place] [address] Creatinine [Mass/Vol] 0.70 mg/dL Normal 0.40-1.60 [facility] Comment on above: Performed By: #### 5 7021-8 #### MELISA Galvan ([id number]) [facility] () [address] [place] [address] GFR/1.73 sq M.predicted MDRD (S/P/Bld) [Vol rate/Area] mL/min/{1.73_m2} Normal >60 [facility] Comment on above: Result Comment: Calc ulations of estimated GFR are performed using the 2020 CKD-EPI Study Refit equation without the race variable for the IDMS-Traceable creatinine methods. https://jasn.asnjournals.org/content/early/ASN.32555537 88 Performed By: #### 5 7021-8 #### MELISA Galvan ([id number]) [facility] () [address] [place] [address] Glucose [Mass/Vol] 100 mg/dL High 65-99 [facility] Comment on above: Performed By: #### 5 7021-8 #### MELISA Galvan ([id number]) [facility] () [address] [place] [address] Potassium [Moles/Vol] 3.9 mmol/L Normal 3.4-5.1 [facility] Comment on above: Performed By: #### 5 7021-8 #### MELISA Galvan (23825) [facility] () [address] [place] [address] Sodium [Moles/Vol] 139 mmol/L Normal 133-145 [facility] Comment on above: Performed By: #### 5 7021-8 #### MELISA Galvan ([id number]) [facility] () [address] [place] [address] Urea nitrogen [Mass/Vol] 4 mg/dL Low 8-25 [facility] Comment on above: Performed By: #### 5 7021-8 #### MELISA Galvan ([id number]) [facility] () [address] [place] [address] CBC panel Auto (Bld)on 03-07 Erythrocyte distribution width (RBC) [Ratio] 13.2 % 11.5 - 14.5 % [facility] Hematocrit (Bld) [Volume fraction] 33.3 % Low 36.0 - 46.0 % [facility] Hemoglobin (Bld) [Mass/Vol] 11.0 g/dL Low 12.0 - 16.0 g/dL [facility] Interpretation and review of laboratory results Abnormal [facility] MCH (RBC) [Entitic mass] 31.3 pg 26.0 - 34.0 pg [facility] MCHC (RBC) [Mass/Vol] 33.0 g/dL 32.0 - 36.0 g/dL [facility] MCV (RBC) [Entitic vol] 95 fL 80 - 100 fL [facility] Nucleated RBC/100 WBC (Bld) [Ratio] 0.0 % [facility] Platelets (Bld) [#/Vol] 155 10*3/uL [facility] RBC (Bld) [#/Vol] 3.51 10*6/uL Low [facility] WBC (Bld) [#/Vol] 5.1 10*3/uL [facility] Erythrocyte distribution width (RBC) [Ratio] 13.2 % Normal 11.5-14.5 [facility] Comment on above: Performed By: #### 5 7021-8 #### MELISA Galvan ([id number]) [facility] () [address] [place] [address] Hematocrit (Bld) [Volume fraction] 33.3 % Low 36.0-46.0 [facility] Comment on above: Performed By: #### 5 7021-8 #### MELISA Galvan ([id number]) [facility] () [address] [place] [address] Hemoglobin (Bld) [Mass/Vol] 11.0 g/dL Low 12.0-16.0 [facility] Comment on above: Performed By: #### 5 7021-8 #### MELISA Galvan ([id number]) [facility] () [address] [place] [address] MCH (RBC) [Entitic mass] 31.3 pg Normal 26.0-34.0 [facility] Comment on above: Performed By: #### 5 7021-8 #### MELISA Galvan ([id number]) [facility] () [address] [place] [address] MCHC (RBC) [Mass/Vol] 33.0 g/dL Normal 32.0-36.0 [facility] Comment on above: Performed By: #### 5 7021-8 #### MELISA Galvan ([id number]) [facility] () [address] [place] [address] MCV (RBC) [Entitic vol] 95 fL Normal 80-100 [facility] Comment on above: Performed By: #### 5 7021-8 #### MELISA Galvan (93992) [facility] () [address] [place] [address] Nucleated RBC/100 WBC (Bld) [Ratio] 0.0 /100 WBCs Normal 0.0-0.0 [facility] Comment on above: Performed By: #### 5 7021-8 #### MELISA Galvan (34254) [facility] () [address] [place] [address] Platelets (Bld) [#/Vol] 155 x10*3/uL Normal 150-450 [facility] Comment on above: Performed By: #### 5 7021-8 #### MELISA Galvan ([id number]) [facility] () [address] [place] [address] RBC (Bld) [#/Vol] 3.51 x10*6/uL Low 4.00-5.20 [facility] Comment on above: Performed By: #### 5 7021-8 #### MELISA Galvan ([id number]) [facility] () [address] [place] [address] WBC (Bld) [#/Vol] 5.1 x10*3/uL Normal 4.4-11.3 [facility] Comment on above: Performed By: #### 5 7021-8 #### MELISA Galvan ([id number]) [facility] () [address] [place] [address] Glucose Test strip manual (B ld) [Mass/Vol]on 03-07-2023 Glucose [Mass/Vol] 125 mg/dL High 74 - 99 mg/dL [facility] Interpretation and review of laboratory results Abnormal [facility] Glucose [Mass/Vol] 125 mg/dL High 74-99 [facility] Comment on above: Performed By: #### 2 4323-8 #### MELISA Galvan ([id number]) [facility] () [address] [place] [address] Glucose [Mass/Vol] 117 mg/dL High 74 - 99 mg/dL [facility] Interpretation and review of laboratory results Abnormal [facility] Glucose [Mass/Vol] 117 mg/dL High 74-99 [facility] Comment on above: Performed By: #### 2 4323-8 #### MELISA Galvan ([id number]) [facility] () [address] [place] [address] Glucose [Mass/Vol] 98 mg/dL 74 - 99 mg/dL [facility] Interpretation and review of laboratory results Normal [facility] Glucose [Mass/Vol] 98 mg/dL Normal 74-99 [facility] Comment on above: Performed By: #### 2 4323-8 #### MELISA Galvan ([id number]) [facility] () [address] [place] [address] Glucose [Mass/Vol] 98 mg/dL 74 - 99 mg/dL [facility] Interpretation and review of laboratory results Normal [facility] Glucose [Mass/Vol] 98 mg/dL Normal 74-99 [facility] Comment on above: Performed By: #### 2 4323-8 #### MELISA Galvan ([id number]) [facility] () [address] [place] [address] Glucose [Mass/Vol] 108 mg/dL High 74 - 99 mg/dL [facility] Interpretation and review of laboratory results Abnormal [facility] Glucose [Mass/Vol] 108 mg/dL High 74-99 [facility] Comment on above: Performed By: #### 5 7021-8 #### MELISA Galvan ([id number]) [facility] () [address] [place] [address] Glucose [Mass/Vol] 119 mg/dL High 74 - 99 mg/dL [facility] Interpretation and review of laboratory results Abnormal [facility] Basic metabolic 2000 panelon 03-06-2023 Anion gap [Moles/Vol] 7 mmol/L NINF - 19 mmol/L [facility] Calcium [Mass/Vol] 8.1 mg/dL Low 8.5 - 10.4 mg/dL [facility] Chloride [Moles/Vol] 109 mmol/L High 97 - 107 mmol/L [facility] CO2 [Moles/Vol] 21 mmol/L Low 24 - 31 mmol/L [facility] Creatinine [Mass/Vol] 0.70 mg/dL 0.40 - 1.60 mg/dL [facility] eGFR - PINF [facility] Comment on above: Calculations of jessica mated GFR are performed using the 2020 CKD-EPI Study Refit equation without the race variable for the IDMS-Traceable creatinine methods. https://jasn.asnjournals.org/content//ASN.51146164 88 Glucose [Mass/Vol] 149 mg/dL High 65 - 99 mg/dL [facility] Interpretation and review of laboratory results Abnormal [facility] Potassium [Moles/Vol] 3.7 mmol/L 3.4 - 5.1 mmol/L [facility] Sodium [Moles/Vol] 137 mmol/L 133 - 145 mmol/L [facility] Urea nitrogen [Mass/Vol] 5 mg/dL Low 8 - 25 mg/dL [facility] Anion gap [Moles/Vol] 7 mmol/L Normal <=19 [facility] Comment on above: Performed By: #### 5 7021-8 #### MELISA Galvan ([id number]) [facility] () [address] [place] [address] Calcium [Mass/Vol] 8.1 mg/dL Low 8.5-10.4 [facility] Comment on above: Performed By: #### 5 7021-8 #### MELISA Galvan ([id number]) [facility] [facility] () [address] [place] [address] Chloride [Moles/Vol] 109 mmol/L High 97-107 [facility] Comment on above: Performed By: #### 5 7021-8 #### MELISA Galvan ([id number]) [facility] () [address] [place] [address] CO2 [Moles/Vol] 21 mmol/L Low 24-31 [facility] Comment on above: Performed By: #### 5 7021-8 #### MELISA Galvan (06902) [facility] () [address] [place] [address] Creatinine [Mass/Vol] 0.70 mg/dL Normal 0.40-1.60 [facility] Comment on above: Performed By: #### 5 7021-8 #### MELISA Galvan ([id number]) [facility] () [address] [place] [address] GFR/1.73 sq M.predicted MDRD (S/P/Bld) [Vol rate/Area] mL/min/{1.73_m2} Normal >60 [facility] Comment on above: Result Comment: Calc ulations of estimated GFR are performed using the 2020 CKD-EPI Study Refit equation without the race variable for the IDMS-Traceable creatinine methods. https://jasn.asnjournals.org/content//ASN.01242095 88 Performed By: #### 5 7021-8 #### MELISA Galvan ([id number]) [facility] () [address] [place] [address] Glucose [Mass/Vol] 149 mg/dL High 65-99 [facility] Comment on above: Performed By: #### 5 7021-8 #### MELISA Galvan ([id number]) [facility] () [address] [place] [address] Potassium [Moles/Vol] 3.7 mmol/L Normal 3.4-5.1 [facility] Comment on above: Performed By: #### 5 7021-8 #### MELISA Galvan ([id number]) [facility] () [address] [place] [address] Sodium [Moles/Vol] 137 mmol/L Normal 133-145 [facility] Comment on above: Performed By: #### 5 7021-8 #### MELISA Galvan ([id number]) [facility] () [address] [place] [address] Urea nitrogen [Mass/Vol] 5 mg/dL Low 8-25 [facility] Comment on above: Performed By: #### 5 7021-8 #### MELISA Galvan ([id number]) [facility] () [address] [place] [address] CBC panel Auto (Bld)on 03-06 Erythrocyte distribution width (RBC) [Ratio] 12.9 % 11.5 - 14.5 % [facility] Hematocrit (Bld) [Volume fraction] 35.1 % Low 36.0 - 46.0 % [facility] Hemoglobin (Bld) [Mass/Vol] 11.8 g/dL Low 12.0 - 16.0 g/dL [facility] Interpretation and review of laboratory results Abnormal [facility] MCH (RBC) [Entitic mass] 30.8 pg 26.0 - 34.0 pg [facility] MCHC (RBC) [Mass/Vol] 33.6 g/dL 32.0 - 36.0 g/dL [facility] MCV (RBC) [Entitic vol] 92 fL 80 - 100 fL [facility] Nucleated RBC/100 WBC (Bld) [Ratio] 0.0 % [facility] Platelets (Bld) [#/Vol] 179 10*3/uL [facility] RBC (Bld) [#/Vol] 3.83 10*6/uL Low [facility] WBC (Bld) [#/Vol] 5.5 10*3/uL [facility] Erythrocyte distribution width (RBC) [Ratio] 12.9 % Normal 11.5-14.5 [facility] Comment on above: Performed By: #### 2 4356-8 #### MELISA Galvan (51184) [facility] () [address] [place] [address] Hematocrit (Bld) [Volume fraction] 35.1 % Low 36.0-46.0 [facility] Comment on above: Performed By: #### 2 4356-8 #### MELISA Galvan ([id number]) [facility] () [address] [place] [address] Hemoglobin (Bld) [Mass/Vol] 11.8 g/dL Low 12.0-16.0 [facility] Comment on above: Performed By: #### 2 4356-8 #### MELISA Galvan (45476) [facility] () [address] [place] [address] MCH (RBC) [Entitic mass] 30.8 pg Normal 26.0-34.0 [facility] Comment on above: Performed By: #### 2 4356-8 #### MELISA Galvan ([id number]) [facility] () [address] [place] [address] MCHC (RBC) [Mass/Vol] 33.6 g/dL Normal 32.0-36.0 [facility] Comment on above: Performed By: #### 2 4356-8 #### MELISA Galvan (63056) [facility] () [address] [place] [address] MCV (RBC) [Entitic vol] 92 fL Normal 80-100 [facility] Comment on above: Performed By: #### 2 4356-8 #### MELISA Galvan (41046) [facility] () [address] [place] [address] Nucleated RBC/100 WBC (Bld) [Ratio] 0.0 /100 WBCs Normal 0.0-0.0 [facility] Comment on above: Performed By: #### 2 4356-8 #### MELISA Galvan ([id number]) [facility] () [address] [place] [address] Platelets (Bld) [#/Vol] 179 x10*3/uL Normal 150-450 [facility] Comment on above: Performed By: #### 2 4356-8 #### MELISA Galvan (53409) [facility] () [address] [place] [address] RBC (Bld) [#/Vol] 3.83 x10*6/uL Low 4.00-5.20 [facility] Comment on above: Performed By: #### 2 4356-8 #### MELISA Galvan ([id number]) [facility] () [address] [place] [address] WBC (Bld) [#/Vol] 5.5 x10*3/uL Normal 4.4-11.3 [facility] Comment on above: Performed By: #### 2 4356-8 #### MELISA Galvan (05505) [facility] () [address] [place] [address] Glucose Test strip manual (B ld) [Mass/Vol]on 03-06-2023 Glucose [Mass/Vol] 119 mg/dL High 74-99 [facility] Comment on above: Performed By: #### 5 7021-8 #### MELISA Galvan (98957) [facility] () [address] [place] [address] Glucose [Mass/Vol] 103 mg/dL High 74 - 99 mg/dL [facility] Interpretation and review of laboratory results Abnormal [facility] Glucose [Mass/Vol] 103 mg/dL High 74-99 [facility] Comment on above: Performed By: #### 5 7021-8 #### MELISA Galvan (29542) [facility] () [address] [place] [address] Glucose [Mass/Vol] 119 mg/dL High 74 - 99 mg/dL [facility] Interpretation and review of laboratory results Abnormal [facility] Glucose [Mass/Vol] 119 mg/dL High 74-99 [facility] Comment on above: Performed By: #### 5 7021-8 #### MELISA Galvan ([id number]) [facility] () [address] [place] [address] Glucose [Mass/Vol] 108 mg/dL High 74 - 99 mg/dL [facility] Interpretation and review of laboratory results Abnormal [facility] Glucose [Mass/Vol] 108 mg/dL High 74-99 [facility] Comment on above: Performed By: #### 5 7021-8 #### MELISA Galvan ([id number]) [facility] () [address] [place] [address] Glucose [Mass/Vol] 113 mg/dL High 74 - 99 mg/dL [facility] Interpretation and review of laboratory results Abnormal [facility] Glucose [Mass/Vol] 113 mg/dL High 74-99 [facility] Comment on above: Performed By: #### 5 7021-8 #### MELISA Galvan ([id number]) [facility] () [address] [place] [address] Glucose [Mass/Vol] 152 mg/dL High 74 - 99 mg/dL [facility] Interpretation and review of laboratory results Abnormal [facility] Glucose [Mass/Vol] 152 mg/dL High 74-99 [facility] Comment on above: Performed By: #### 2 4356-8 #### MELISA Galvan (85901) [facility] () [address] [place] [address] Magnesiumon 03-06-2023 Magnesium [Mass/Vol] 1.70 mg/dL 1.60 - 3.10 mg/dL [facility] Magnesium [Mass/Vol] 1.70 mg/dL Normal 1.60-3.10 [facility] Comment on above: Performed By: #### 2 4356-8 #### MELISA Galvan ([id number]) [facility] () [address] [place] [address] No Panel Informationon 03-06 Interpretation and review of laboratory results Normal [facility] Phosphateon 03-06-2023 Phosphate [Mass/Vol] 3.0 mg/dL Normal 2.5-4.5 [facility] Comment on above: Performed By: #### 2 4356-8 #### MELISA Galvan (71326) [facility] () [address] [place] [address] Phosphoruson 03-06-2023 Phosphate [Mass/Vol] 3.0 mg/dL 2.5 - 4.5 mg/dL [facility] XR CHEST 1 VIEWon 03-06-2023 XR CHEST 1 VIEW Interpreted By: Sara Zarate, STUDY: XR CHEST 1 VIEW; 03/06/2023 7:32 am INDICATION: Signs/Symptoms:post op COMPARISON: None ACCESSION NUMBER(S): [id number] ORDERING CLINICIAN: JASON FOSTER TECHNIQUE: Frontal and [...] Sara Zarate 03/06/2023 1:48 PM Dictation workstation: [id number] [facility] XR Chest Single viewon 03-06 Appliance positioning as noted above. No consolidation. Signed by: Sara Zarate 03/06/2023 1:48 PM Dictation workstation: [id number] Interpreted By: Sara Zarate, STUDY: XR CHEST 1 VIEW; 03/06/2023 7:32 am INDICATION: Signs/Symptoms:post op COMPARISON: None ACCESSION NUMBER(S): [id number] ORDERING CLINICIAN: JASON FOSTER TECHNIQUE: Frontal and [...] INDICATION: Signs/Symptoms:post op COMPARISON: None ACCESSION NUMBER(S): [id number] ORDERING CLINICIAN: JASON FOSTER TECHNIQUE: Frontal and [...] Sara Zarate 03/06/2023 1:48 PM Dictation workstation: [id number] [facility] Work Phone: Radiology Study observation (narrative) [facility] Work Phone: XR Chest Single viewOrdered By: Sara Zarate on 03-06-2023 [facility] Work Phone: Basic metabolic 2000 panelon 03-05-2023 Anion gap [Moles/Vol] 13 mmol/L NINF - 19 mmol/L [facility] Calcium [Mass/Vol] 8.0 mg/dL Low 8.5 - 10.4 mg/dL [facility] Chloride [Moles/Vol] 107 mmol/L 97 - 107 mmol/L [facility] CO2 [Moles/Vol] 18 mmol/L Low 24 - 31 mmol/L [facility] Creatinine [Mass/Vol] 0.70 mg/dL 0.40 - 1.60 mg/dL [facility] eGFR - PINF [facility] Comment on above: Calculations of jessica mated GFR are performed using the 2020 CKD-EPI Study Refit equation without the race variable for the IDMS-Traceable creatinine methods. https://jasn.asnjournals.org/content//ASN.18790753 88 Glucose [Mass/Vol] 107 mg/dL High 65 - 99 mg/dL [facility] Interpretation and review of laboratory results Abnormal [facility] Potassium [Moles/Vol] 3.6 mmol/L 3.4 - 5.1 mmol/L [facility] Sodium [Moles/Vol] 138 mmol/L 133 - 145 mmol/L [facility] Urea nitrogen [Mass/Vol] 10 mg/dL 8 - 25 mg/dL [facility] Anion gap [Moles/Vol] 13 mmol/L Normal <=19 [facility] Comment on above: Performed By: #### 2 4356-8 #### MELISA Galvan ([id number]) [facility] (MW) [address] [place] [address] Calcium [Mass/Vol] 8.0 mg/dL Low 8.5-10.4 [facility] Comment on above: Performed By: #### 2 4356-8 #### MELISA Galvan (69107) [facility] () [address] [place] [address] Chloride [Moles/Vol] 107 mmol/L Normal 97-107 [facility] Comment on above: Performed By: #### 2 4356-8 #### MELISA Galvan (68860) [facility] () [address] [place] [address] CO2 [Moles/Vol] 18 mmol/L Low 24-31 [facility] Comment on above: Performed By: #### 2 4356-8 #### MELISA Galvan ([id number]) [facility] () [address] [place] [address] Creatinine [Mass/Vol] 0.70 mg/dL Normal 0.40-1.60 [facility] Comment on above: Performed By: #### 2 4356-8 #### MELISA Galvan (98362) [facility] () [address] [place] [address] GFR/1.73 sq M.predicted MDRD (S/P/Bld) [Vol rate/Area] mL/min/{1.73_m2} Normal >60 [facility] Comment on above: Result Comment: Calc ulations of estimated GFR are performed using the 2020 CKD-EPI Study Refit equation without the race variable for the IDMS-Traceable creatinine methods. https://jasn.asnjournals.org/content/early/ASN.03189013 88 Performed By: #### 2 4356-8 #### MELISA Galvan (99797) [facility] () [address] [place] [address] Glucose [Mass/Vol] 107 mg/dL High 65-99 [facility] Comment on above: Performed By: #### 2 4356-8 #### MELISA Galvan (50575) [facility] () [address] [place] [address] Potassium [Moles/Vol] 3.6 mmol/L Normal 3.4-5.1 [facility] Comment on above: Performed By: #### 2 4356-8 #### MELISA Galvan (40471) [facility] () [address] [place] [address] Sodium [Moles/Vol] 138 mmol/L Normal 133-145 [facility] Comment on above: Performed By: #### 2 4356-8 #### MELISA Galvan (04769) [facility] () [address] [place] [address] Urea nitrogen [Mass/Vol] 10 mg/dL Normal 8-25 [facility] Comment on above: Performed By: #### 2 4356-8 #### MELISA Galvan (09371) [facility] () [address] [place] [address] CBC panel Auto (Bld)on 03-05 Erythrocyte distribution width (RBC) [Ratio] 12.6 % 11.5 - 14.5 % [facility] Hematocrit (Bld) [Volume fraction] 34.8 % Low 36.0 - 46.0 % [facility] Hemoglobin (Bld) [Mass/Vol] 11.9 g/dL Low 12.0 - 16.0 g/dL [facility] Interpretation and review of laboratory results Abnormal [facility] MCH (RBC) [Entitic mass] 31.2 pg 26.0 - 34.0 pg [facility] MCHC (RBC) [Mass/Vol] 34.2 g/dL 32.0 - 36.0 g/dL [facility] MCV (RBC) [Entitic vol] 91 fL 80 - 100 fL [facility] Nucleated RBC/100 WBC (Bld) [Ratio] 0.0 % [facility] Platelets (Bld) [#/Vol] 182 10*3/uL [facility] RBC (Bld) [#/Vol] 3.82 10*6/uL Low [facility] WBC (Bld) [#/Vol] 8.4 10*3/uL [facility] Erythrocyte distribution width (RBC) [Ratio] 12.6 % Normal 11.5-14.5 [facility] Comment on above: Performed By: #### 5 8410-2 #### MELISA Galvan (52578) [facility] () [address] [place] [address] Hematocrit (Bld) [Volume fraction] 34.8 % Low 36.0-46.0 [facility] Comment on above: Performed By: #### 5 8410-2 #### MELISA Galvan (90186) [facility] () [address] [place] [address] Hemoglobin (Bld) [Mass/Vol] 11.9 g/dL Low 12.0-16.0 [facility] Comment on above: Performed By: #### 5 8410-2 #### MELISA Galvan (81772) [facility] () [address] [place] [address] MCH (RBC) [Entitic mass] 31.2 pg Normal 26.0-34.0 [facility] Comment on above: Performed By: #### 5 8410-2 #### MELISA Galvan (45722) [facility] () [address] [place] [address] MCHC (RBC) [Mass/Vol] 34.2 g/dL Normal 32.0-36.0 [facility] Comment on above: Performed By: #### 5 8410-2 #### MELISA Galvan (69112) [facility] () [address] [place] [address] MCV (RBC) [Entitic vol] 91 fL Normal 80-100 [facility] Comment on above: Performed By: #### 5 8410-2 #### MELISA Galvan (55477) [facility] () [address] [place] [address] Nucleated RBC/100 WBC (Bld) [Ratio] 0.0 /100 WBCs Normal 0.0-0.0 [facility] Comment on above: Performed By: #### 5 8410-2 #### MELISA Galvan (58819) [facility] () [address] [place] [address] Platelets (Bld) [#/Vol] 182 x10*3/uL Normal 150-450 [facility] Comment on above: Performed By: #### 5 8410-2 #### MELISA Galvan (31084) [facility] () [address] [place] [address] RBC (Bld) [#/Vol] 3.82 x10*6/uL Low 4.00-5.20 [facility] Comment on above: Performed By: #### 5 8410-2 #### MELISA Galvan (31374) [facility] () [address] [place] [address] WBC (Bld) [#/Vol] 8.4 x10*3/uL Normal 4.4-11.3 [facility] Comment on above: Performed By: #### 5 8410-2 #### MELISA Galvan (18896) [facility] () [address] [place] [address] Glucose Test strip manual (B ld) [Mass/Vol]on 03-05-2023 Glucose [Mass/Vol] 176 mg/dL High 74 - 99 mg/dL [facility] Interpretation and review of laboratory results Abnormal [facility] Glucose [Mass/Vol] 176 mg/dL High 74-99 [facility] Comment on above: Performed By: #### 2 4356-8 #### MELISA Galvan (78066) [facility] () [address] [place] [address] Glucose [Mass/Vol] 177 mg/dL High 74 - 99 mg/dL [facility] Interpretation and review of laboratory results Abnormal [facility] Glucose [Mass/Vol] 177 mg/dL High 74-99 [facility] Comment on above: Performed By: #### 2 4356-8 #### MELISA Galvan (39689) [facility] () [address] [place] [address] Glucose [Mass/Vol] 111 mg/dL High 74 - 99 mg/dL [facility] Interpretation and review of laboratory results Abnormal [facility] Glucose [Mass/Vol] 111 mg/dL High 74-99 [facility] Comment on above: Performed By: #### 2 4356-8 #### MELISA Galvan ([id number]) [facility] () [address] [place] [address] Magnesiumon 03-05-2023 Magnesium [Mass/Vol] 1.70 mg/dL 1.60 - 3.10 mg/dL [facility] Magnesium [Mass/Vol] 1.70 mg/dL Normal 1.60-3.10 [facility] Comment on above: Performed By: #### 2 4356-8 #### MELISA Galvan (42112) [facility] () [address] [place] [address] No Panel Informationon 03-05 Interpretation and review of laboratory results Normal [facility] Phosphateon 03-05-2023 Phosphate [Mass/Vol] 4.3 mg/dL Normal 2.5-4.5 [facility] Comment on above: Performed By: #### 2 4356-8 #### MELISA Galvan (50408) [facility] () [address] [place] [address] Phosphoruson 03-05-2023 Phosphate [Mass/Vol] 4.3 mg/dL 2.5 - 4.5 mg/dL [facility] Surgical pathology studyon 0 03-05-2023 Surgical pathology study Pathology report.total SEE COMMENT Surgical Pathology Case: [id number] Authorizing Provider: Sherry Magaña MD Collected: 03/05/2023 1125 Ordering Location: [facility], [place] Received: 03/05/2023 1314 Center OR Pathologist: Melisa [...] sectioned and entirely submitted in 1 cassette. 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] VERAB/VERIFY ABORHon 024 ABO group Nom (Bld) O Normal [facility] Comment on above: Performed By: #### V ERAB #### MELISA Galvan ([id number]) [facility] ([facility]) [address] [place] [address] D Ag Ql (Bld) Positive [facility] Comment on above: Performed By: #### V ERAB #### MELISA Galvan ([id number]) [facility] ([facility]) [address] [place], [place] [id number] XR CHEST 1 VIEWon 03-05-2023 XR CHEST 1 VIEW Interpreted By: Baldomero Hendrickson, STUDY: XR CHEST 1 VIEW; 03/05/2023 3:11 pm INDICATION: CLINICAL INFORMATION: Signs/Symptoms:NG tube placement confirmation. COMPARISON: 03/05/2019 at 745 hours ACCESSION NUMBER(S): [id number] ORDERING CLINICIAN: DESMOND TIRADO TECHNIQUE: Portable chest [...] Baldomero Hendrickson 03/05/2023 3:31 PM Dictation workstation: [id number] [facility] XR CHEST 1 VIEW Interpreted By: Nya Ahmadi, STUDY: XR CHEST 1 VIEW 03/05/2023 7:51 am INDICATION: Signs/Symptoms:conf irm line placement COMPARISON: None available. ACCESSION NUMBER(S): [id number] ORDERING CLINICIAN: SERENA GEORGE TECHNIQUE: AP erect view of the chest FINDINGS: Right arm PICC line terminates in the SVC. There is no pneumothorax. The heart, mediastinum, and lungs are normally visualized. IMPRESSION: Right arm PICC line terminating in SVC without pneumothorax. No acute cardiopulmonary disease. Signed by: Nya Ahmadi 03/05/2023 7:54 AM Dictation workstation: [id number] [facility] XR Chest Single viewon 03-05 1. Status post NG tube insertion with the tube extending into the left upper quadrant. 2. Stable appearance of the PICC line. 3. No infiltrates are identified. MACRO: none Signed by: Baldomero Hendrickson 03/05/2023 3:31 PM Dictation workstation: [id number] [facility] Interpreted By: Baldomero Hendrickson, STUDY: XR CHEST 1 VIEW; 03/05/2023 3:11 pm INDICATION: CLINICAL INFORMATION: Signs/Symptoms:NG tube placement confirmation. COMPARISON: 03/05/2019 at 745 hours ACCESSION NUMBER(S): [id number] ORDERING CLINICIAN: DESMOND TIRADO TECHNIQUE: Portable chest [...] COMPARISON: 03/05/2019 at 745 hours ACCESSION NUMBER(S): [id number] ORDERING CLINICIAN: DESMOND TIRADO TECHNIQUE: Portable chest [...] Baldomero Hendrickson 03/05/2023 3:31 PM Dictation workstation: [id number] [facility] Work Phone: Radiology Study observation (narrative) [facility] Work Phone: Right arm PICC line terminating in SVC without pneumothorax. No acute cardiopulmonary disease. Signed by: Nya Ahmadi 03/05/2023 7:54 AM Dictation workstation: [id number] [facility] Interpreted By: Nya Ahmadi, STUDY: XR CHEST 1 VIEW 03/05/2023 7:51 am INDICATION: Signs/Symptoms:conf irm line placement COMPARISON: None available. ACCESSION NUMBER(S): [id number] ORDERING CLINICIAN: SERENA GEORGE TECHNIQUE: AP erect view of the chest FINDINGS: Right arm PICC line terminates in the SVC. There is no pneumothorax. The heart, mediastinum, and lungs are normally visualized. [facility] Nya Ahmadi MD - 03/05/2023 Interpreted By: Nya Ahmadi, STUDY: XR CHEST 1 VIEW 03/05/2023 7:51 am INDICATION: Signs/Symptoms:conf irm line placement COMPARISON: None available. ACCESSION NUMBER(S): [id number] ORDERING CLINICIAN: SERENA GEORGE TECHNIQUE: AP erect view of the chest FINDINGS: Right arm PICC line terminates in the SVC. There is no pneumothorax. The heart, mediastinum, and lungs are normally visualized. IMPRESSION: Right arm PICC line terminating in SVC without pneumothorax. No acute cardiopulmonary disease. Signed by: Nya Ahmadi 03/05/2023 7:54 AM Dictation workstation: [id number] [facility] Work Phone: Radiology Study observation (narrative) [facility] Work Phone: XR Chest Single viewOrdered By: Baldomero Hendrickson on 03-05-2023 [facility] Work Phone: XR Chest Single viewOrdered By: Nya Ahmadi on 03-05-2023 [facility] Work Phone: Basic metabolic 2000 panelon 03-02-2023 Anion gap [Moles/Vol] 14 mmol/L Normal <=19 [facility] Comment on above: Performed By: #### 2 4321-2 #### MELISA Galvan ([id number]) [facility] () [address] [place] [address] Calcium [Mass/Vol] 9.0 mg/dL Normal 8.5-10.4 [facility] Comment on above: Performed By: #### 2 4321-2 #### MELISA Galvan (77029) [facility] () [address] [place] [address] Chloride [Moles/Vol] 107 mmol/L Normal 97-107 [facility] Comment on above: Performed By: #### 2 4321-2 #### MELISA Galvan (92889) [facility] () [address] [place] [address] CO2 [Moles/Vol] 21 mmol/L Low 24-31 [facility] Comment on above: Performed By: #### 2 4321-2 #### MELISA Galvan (27839) [facility] () [address] [place] [address] Creatinine [Mass/Vol] 0.80 mg/dL Normal 0.40-1.60 [facility] Comment on above: Performed By: #### 2 4321-2 #### MELISA Galvan (27522) [facility] () [address] [place] [address] GFR/1.73 sq M.predicted MDRD (S/P/Bld) [Vol rate/Area] mL/min/{1.73_m2} Normal >60 [facility] Comment on above: Result Comment: Calc ulations of estimated GFR are performed using the 2020 CKD-EPI Study Refit equation without the race variable for the IDMS-Traceable creatinine methods. https://jasn.asnjournals.org/content//ASN.13826372 88 Performed By: #### 2 4321-2 #### MELISA Galvan (44903) [facility] () [address] [place] [address] Glucose [Mass/Vol] 68 mg/dL Normal 65-99 [facility] Comment on above: Performed By: #### 2 4321-2 #### MELISA Galvan (20735) [facility] () [address] [place] [address] Potassium [Moles/Vol] 4.0 mmol/L Normal 3.4-5.1 [facility] [facility] Comment on above: Performed By: #### 2 4321-2 #### MELISA Galvan ([id number]) [facility] () [address] [place] [address] Sodium [Moles/Vol] 142 mmol/L Normal 133-145 [facility] Comment on above: Performed By: #### 2 4321-2 #### MELISA Galvan ([id number]) [facility] () [address] [place] [address] Urea nitrogen [Mass/Vol] 8 mg/dL Normal 8-25 [facility] Comment on above: Performed By: #### 2 4321-2 #### MELISA Galvan ([id number]) [facility] () [address] [place] [address] Blood type and Indirect anti body screen panel (Bld)on 03-02-2023 ABO group Nom (Bld) O Normal [facility] Comment on above: Performed By: #### 3 4532-2 #### MELISA Galvan ([id number]) [facility] ([facility]) [id number] [place] [address] [place] Blood group antibody screen Ql Negative [facility] Comment on above: Performed By: #### 3 4532-2 #### MELISA Galvan ([id number]) [facility] ([facility]) [address] [place] [address] [place] D Ag Ql (Bld) Positive [facility] Comment on above: Performed By: #### 3 4532-2 #### MELISA Galvan ([id number]) [facility] ([facility]) [address] [place] [address] [place] Staphylococcus aureus.methic illin resistant isolateon 03-02-2023 MRSA isol Org specific cx Ql (Nose) Test: Staphylococcus aureus/MRSA colonization, Culture Specimen Source: Anterior Nares Specimen Type: Swab Specimen Date: 03/02/2023 3:17 PM Result Date: 03/04/2023 7:55 AM Result Status: Final result Abnormal: No Resulting Lab: [facility] [address] [place], [place] [id number] CULTURE No Staphylococcus aureus isolated [facility] Comment on above: Performed By: #### 5 2969-3 #### ALON Johnson ([id number]) [facility] ([facility]) [address] [place] [address] Alanine aminotransferase [En zymatic activity/volume] in Serum or PlasmaOrdered By: Roseline Mejia on 02-13-2023 ALT [Catalytic activity/Vol] 11 U/L Normal 7-52 [facility] Comment on above: Performed By: #### H EPATIC, MG, LIPASE, CMP, CBC #### [address] Albumin [Mass/volume] in Ser um or Plasma by Bromocresol green (BCG) dye binding methoOrdered By: Roseline Mejia on 02-13-2023 Albumin BCG dye [Mass/Vol] 4.0 g/dL 3.5-5.7 [facility] Alkaline phosphatase [Enzyma tic activity/volume] in Serum or PlasmaOrdered By: Roseline Mejia on 02-13-2023 ALP [Catalytic activity/Vol] 55 U/L Normal 34-104 [facility] Comment on above: Performed By: #### H EPATIC, MG, LIPASE, CMP, CBC #### [facility] [address] [place] [address] Aspartate aminotransferase [ Enzymatic activity/volume] in Serum or PlasmaOrdered By: Roseline Mejia on 02-13-2023 AST [Catalytic activity/Vol] 20 U/L Normal 13-39 [facility] Comment on above: Performed By: #### H EPATIC, MG, LIPASE, CMP, CBC #### [address] Automated basophil %Ordered By: Roseline Mejia on 02-13-2023 Basophils/100 WBC (Bld) 1.2 % Normal . [facility] Comment on above: Performed By: #### H EPATIC, MG, LIPASE, CMP, CBC #### [facility] [address] [place] [address] Automated basophil countOrde red By: Roseline Mejia on 02-13-2023 Basophils (Bld) [#/Vol] 0.1 10*3/uL Normal 0.0-0.2 [facility] Comment on above: Result Comment: PERF ORMED BY: [place] [address] PATHOLOGIST [employer] BAUTISTA BAKER M.D. Performed By: #### H EPATIC, MG, LIPASE, CMP, CBC #### [address] Automated blood monocyte cou ntOrdered By: Roseline Mejia on 02-13-2023 Monocytes (Bld) [#/Vol] 0.3 10*3/uL Normal 0.0-0.8 [facility] Comment on above: Performed By: #### H EPATIC, MG, LIPASE, CMP, CBC #### [address] Automated eosinophil %Ordere d By: Roseline Mejia on 02-13-2023 Eosinophils/100 WBC (Bld) 1.7 % Normal . [facility] Comment on above: Performed By: #### H EPATIC, MG, LIPASE, CMP, CBC #### [address] Automated eosinophil countOr dered By: Roseline Mejia on 02-13-2023 Eosinophils (Bld) [#/Vol] 0.1 10*3/uL Normal 0.0-0.45 [facility] Comment on above: Performed By: #### H EPATIC, MG, LIPASE, CMP, CBC #### [address] Automated monocyte %Ordered By: Roseline Mejia on 02-13-2023 Monocytes/100 WBC (Bld) 7.3 % Normal . [facility] Comment on above: Performed By: #### H EPATIC, MG, LIPASE, CMP, CBC #### [address] Automated neutrophil %Ordere d By: Roseline Mejia on 02-13-2023 Neutrophils/100 WBC (Bld) 49.0 % Normal . [facility] Comment on above: Performed By: #### H EPATIC, MG, LIPASE, CMP, CBC #### [address] Automated urine color determ inationOrdered By: Roseline Mejia on 02-13-2023 Color (U) Yellow Normal Yellow [facility] Comment on above: Order Comment: Name Collection Type:: Clean-Voided Midstream Performed By: #### A DDONUAPLUS, UHCG, CUU #### [facility] [address] Basic Metabolic Panelon 01-17 Creatinine Clr Calc Pharmacy 119.02 Normal [facility] Comment on above: Performed By: #### H EPATIC, MG, LIPASE, CMP, CBC #### [facility] [address] GFR/1.73 sq M.predicted MDRD (S/P/Bld) [Vol rate/Area] mL/min/{1.73_m2} Normal [facility] Comment on above: Performed By: #### H EPATIC, MG, LIPASE, CMP, CBC #### [address] Bilirubin Test strip Ql (U)O rdered By: Roseline Mejia on 02-13-2023 Bilirubin Ql (U) Negative Negative [facility] Bilirubin.direct [Mass/volum e] in Serum or PlasmaOrdered By: Roseline Mejia on 02-13-2023 Bilirubin.direct [Mass/Vol] 0.10 mg/dL 0.03-0.18 [facility] Bilirubin.total [Mass/volume ] in Serum or PlasmaOrdered By: Roseline Mejia on 02-13-2023 Bilirubin [Mass/Vol] 0.5 mg/dL Normal 0.3-1.0 [facility] Comment on above: Performed By: #### H EPATIC, MG, LIPASE, CMP, CBC #### [address] abdomen pelvis w conon CT abdomen pelvis w con [facility] [place] [address] [place] [address] CT Scan Report Signed Patient: Abbey Garcia MR#: [id number] : 1990 Acct:[id number] Age/Sex: 32 / F ADM Date: 02/13/23 Loc: ER Room: Type: [facility] ER Attending Dr: Copies to: DO Roseline [...] Jason Palomo M.D.02/13/2023 3:42 PM Dictation Location: [place] [address] Transcribed By: [facility] 02/13/23 1542 Dictated By: Jason Palomo DO 02/13/23 1537 Signed By: 02/13/23 1542 Normal [facility] Calcium [Mass/volume] in Ser um or PlasmaOrdered By: Roseline Mejia on 02-13-2023 Calcium [Mass/Vol] 8.8 mg/dL Normal 8.6-10.3 [facility] Comment on above: Performed By: #### H EPATIC, MG, LIPASE, CMP, CBC #### [facility] [address] Carbon dioxide, total [Moles /volume] in Serum or PlasmaOrdered By: Roseline Mejia on 02-13-2023 CO2 [Moles/Vol] 21.2 mmol/L Normal 21.0-31.0 [facility] Comment on above: Performed By: #### H EPATIC, MG, LIPASE, CMP, CBC #### [address] Chloride [Moles/volume] in S elder or PlasmaOrdered By: Roseline Mejia on 02-13-2023 Chloride [Moles/Vol] 109 mmol/L High 98-107 [facility] Comment on above: Performed By: #### H EPATIC, MG, LIPASE, CMP, CBC #### [address] Complete Blood Count Auto Di ffon 02-13-2023 Mean Corpuscular HGB Conc 34.9 g/dL Normal 32.0-35.0 [facility] Comment on above: Performed By: #### H EPATIC, MG, LIPASE, CMP, CBC #### [place] [address] [place] Monocytes/100 WBC (Bld) 17.39 % Normal 0.00-20.00 [facility] Comment on above: Performed By: #### H EPATIC, MG, LIPASE, CMP, CBC #### [place] [address] [place] NRBC% 0.2 /100{WBC} Normal 0-0.5 [facility] Comment on above: Performed By: #### H EPATIC, MG, LIPASE, CMP, CBC #### [address] Creatinine [Mass/volume] in Serum or PlasmaOrdered By: Roseline Mejia on 02-13-2023 Creatinine [Mass/Vol] 0.73 mg/dL Normal 0.60-1.20 [facility] Comment on above: Performed By: #### H EPATIC, MG, LIPASE, CMP, CBC #### [facility] [address] Erythrocyte distribution wid th [Ratio] by Automated countOrdered By: Roseline Mejia on 02-13-2023 Erythrocyte distribution width (RBC) [Ratio] 13.0 % Normal 11.9-15.3 [facility] Comment on above: Performed By: #### H EPATIC, MG, LIPASE, CMP, CBC #### [facility] [address] Erythrocytes [#/volume] in B lood by Automated countOrdered By: Roseline Mejia on 02-13-2023 RBC (Bld) [#/Vol] 4.07 10*6/uL Normal 3.60-5.00 [facility] Comment on above: Performed By: #### H EPATIC, MG, LIPASE, CMP, CBC #### [facility] [address] Glucose [Mass/volume] in Ser um or PlasmaOrdered By: Roseline Mejia on 02-13-2023 Glucose [Mass/Vol] 85 mg/dL Normal 70-100 [facility] Comment on above: ADA recommended refe rence rangeRandom Glucose Reference Range is dependent on time and content of last meal. Glucose of more than 200 mg/dL in a nonstressed, ambulatory subject supports the diagnosis of Diabetes Mellitus. Result Comment: [place] om Glucose Reference Range is dependent on time and content of last meal. Glucose of more than 200 mg/dL in a nonstressed, ambulatory subject supports the diagnosis of Diabetes Mellitus. ADA recommended reference range Performed By: #### H EPATIC, MG, LIPASE, CMP, CBC #### [facility] [address] HCG ( test) IAmansi d Ql (U)Ordered By: Roseline Mejia on 02-13-2023 HCG ( test) Ql (U) Negative [facility] HCG,Urineon 02-13-2023 Beta HCG ( test) Ql (U) Negative Normal [facility] Comment on above: Order Comment: Name Collection Type:: Clean-Voided Midstream Result Comment: PERF ORMED BY: [place] [address] PATHOLOGIST [employer] BAUTISTA BAKER M.D. Performed By: #### A CORY, CG, CUU #### [address] Hematocrit [Volume Fraction] of Blood by Automated countOrdered By: Roseline Mejia on 02-13-2023 Hematocrit (Bld) [Volume fraction] 36.3 % Normal 34.0-46.4 [facility] Comment on above: Performed By: #### H EPATIC, MG, LIPASE, CMP, CBC #### [address] Hemoglobin [Mass/volume] in BloodOrdered By: Roseline Mejia on 02-13-2023 Hemoglobin (Bld) [Mass/Vol] 12.7 g/dL Normal 11.8-15.4 [facility] Comment on above: Performed By: #### H EPATIC, MG, LIPASE, CMP, CBC #### [address] Hepatic Panelon 02-13-2023 Albumin [Mass/Vol] 4.0 g/dL Normal 3.5-5.7 [facility] Comment on above: Performed By: #### H EPATIC, MG, LIPASE, CMP, CBC #### [address] Bilirubin,Indirect 0.4 mg/dL Normal [facility] Comment on above: Performed By: #### H EPATIC, MG, LIPASE, CMP, CBC #### [address] Bilirubin.indirect [Mass/Vol] 0.10 mg/dL Normal 0.03-0.18 [facility] Comment on above: Performed By: #### H EPATIC, MG, LIPASE, CMP, CBC #### [address] Ketones Auto test strip (U) [Mass/Vol]Ordered By: Roseline Mejia on 02-13-2023 Ketones (U) [Mass/Vol] Trace Negative [facility] Leukocytes [#/volume] correc darvin for nucleated erythrocytes in Blood by Automated counOrdered By: Roseline Mejia on 02-13-2023 WBC corrected for nucl RBC Auto (Bld) [#/Vol] 4.2 10*3/uL 3.8-11.6 [facility] Leukocytes [#/volume] in Blo od by Automated countOrdered By: Roseline Mejia on 02-13-2023 WBC (Bld) [#/Vol] 4.2 10*3/uL Normal 3.8-11.6 [facility] Comment on above: Performed By: #### H EPATIC, MG, LIPASE, CMP, CBC #### [facility] [address] [place] [address] Lipase [Enzymatic activity/v olume] in Serum or PlasmaOrdered By: Roseline Mejia on 02-13-2023 Lipase [Catalytic activity/Vol] 42.0 U/L Normal 11.0-82.0 [facility] Comment on above: Result Comment: PERF ORMED BY: [place] [address] PATHOLOGIST [employer] BAUTISTA BAKER M.D. Performed By: #### H EPATIC, MG, LIPASE, CMP, CBC #### [facility] [address] [place] [address] [place] Lymphocytes [#/volume] in Bl ood by Automated countOrdered By: Roseline Mejia on 02-13-2023 Lymphocytes (Bld) [#/Vol] 1.7 10*3/uL Normal 1.00-4.8 [facility] Comment on above: Performed By: #### H EPATIC, MG, LIPASE, CMP, CBC #### [facility] [address] [place] [address] [place] Lymphocytes/100 leukocytes i n Blood by Automated countOrdered By: Roseline Mejia on 02-13-2023 Lymphocytes/100 WBC (Bld) 40.8 % Normal . [facility] Comment on above: Performed By: #### H EPATIC, MG, LIPASE, CMP, CBC #### [facility] [address] [place] [address] MCH [Entitic mass] by Automa darvin countOrdered By: Roseline Mejia on 02-13-2023 MCH (RBC) [Entitic mass] 31.1 pg Normal 24.7-34.3 [facility] Comment on above: Performed By: #### H EPATIC, MG, LIPASE, CMP, CBC #### [address] MCHC Auto (RBC) [Mass/Vol]Or dered By: Roseline Mejia on 02-13-2023 MCHC (RBC) [Mass/Vol] 34.9 g/dL 32.0-35.0 [facility] MCV [Entitic volume] by Auto mated countOrdered By: Roseline Mejia on 02-13-2023 MCV (RBC) [Entitic vol] 89.2 fL Normal 80-100 [facility] Comment on above: Performed By: #### H EPATIC, MG, LIPASE, CMP, CBC #### [facility] [address] [place] [address] Monocyte distribution width [Entitic volume] in Blood by AutomatedOrdered By: Roseline Mejia on 02-13-2023 Monocyte distribution width Auto (Bld) [Entitic vol] 17.39 % 0.00-20.00 [facility] Neutrophils [#/volume] in Bl ood by Automated countOrdered By: Roseline Mejia on 02-13-2023 Neutrophils (Bld) [#/Vol] 2.0 10*3/uL Normal 1.8-7.7 [facility] Comment on above: Performed By: #### H EPATIC, MG, LIPASE, CMP, CBC #### [address] Nitrite Test strip Ql (U)Ord ered By: Roseline Mejia on 02-13-2023 Nitrite Ql (U) Negative Negative [facility] No Panel InformationOrdered By: Roseline Mejia on 02-13-2023 Estimated GFR (CKD-EPI) > 60.0 mL/Min [facility] Creatinine Clearance (Chem 119.02 [facility] Nucleated erythrocytes [Pres ence] in Blood by Automated countOrdered By: Roseline Mejia on 02-13-2023 Nucleated RBC Auto Ql (Bld) 0.2 /100{WBC} 0-0.5 [facility] Platelet mean volume [Entiti c volume] in Blood by Automated countOrdered By: Roseline Mejia on 02-13-2023 Platelet mean volume (Bld) [Entitic vol] 8.8 fL Normal 6.3-10.7 [facility] Comment on above: Performed By: #### H EPATIC, MG, LIPASE, CMP, CBC #### [facility] [address] [place] [address] [place] Platelets [#/volume] in Bloo d by Automated countOrdered By: Roseline Mejia on 02-13-2023 Platelets (Bld) [#/Vol] 288 10*3/uL Normal 150-450 [facility] Comment on above: Performed By: #### H EPATIC, MG, LIPASE, CMP, CBC #### [facility] [address] [place] [address] [place] Potassium [Moles/volume] in Serum or PlasmaOrdered By: Roseline Mejia on 02-13-2023 Potassium [Moles/Vol] 3.7 mmol/L Normal 3.5-5.1 [facility] Comment on above: Performed By: #### H EPATIC, MG, LIPASE, CMP, CBC #### [facility] [address] [place] [address] [place] Protein Auto test strip (U) [Mass/Vol]Ordered By: Roseline Mejia on 02-13-2023 Protein (U) [Mass/Vol] Negative Negative [facility] Protein [Mass/volume] in Ser um or PlasmaOrdered By: Roseline Mejia on 02-13-2023 Protein [Mass/Vol] 6.9 g/dL Normal 6.4-8.9 [facility] Comment on above: Performed By: #### H EPATIC, MG, LIPASE, CMP, CBC #### [address] Serum globulin measurement b y calculation (mass/volume)Ordered By: Roseline Mejia on 02-13-2023 Globulin (S) [Mass/Vol] 2.9 g/dL Normal [facility] Comment on above: Performed By: #### H EPATIC, MG, LIPASE, CMP, CBC #### [address] Serum or plasma albumin/glob ulin mass ratioOrdered By: Roseline Mejia on 02-13-2023 Albumin/Globulin [Mass ratio] 1.4 {ratio} [facility] Comment on above: Performed By: #### H EPATIC, MG, LIPASE, CMP, CBC #### [address] Serum or plasma anion gap de terminationOrdered By: Roseline Mejia on 02-13-2023 Anion gap [Moles/Vol] 10.5 mmol/L Normal 6.0-15.0 [facility] Comment on above: Performed By: #### H EPATIC, MG, LIPASE, CMP, CBC #### [address] Serum or plasma non-glucuron idated bilirubin measurement (mass/volume)Ordered By: Roseline Mejia on 02-13-2023 Bilirubin.indirect [Mass/Vol] 0.4 mg/dL [facility] Sodium [Moles/volume] in Ser um or PlasmaOrdered By: Roseline Mejia on 02-13-2023 Sodium [Moles/Vol] 137 mmol/L Normal 136-145 [facility] Comment on above: Performed By: #### H EPATIC, MG, LIPASE, CMP, CBC #### [address] Specific gravity Auto test s trip (U) [Rel density]Ordered By: Roseline Mejia on 02-13-2023 Specific gravity (U) [Rel density] 1.017 1.001-1.030 [facility] Urea nitrogen [Mass/volume] in Serum or PlasmaOrdered By: Roseline Mejia on 02-13-2023 Urea nitrogen [Mass/Vol] 10 mg/dL Normal 7-25 [facility] Comment on above: Performed By: #### H EPATIC, MG, LIPASE, CMP, CBC #### [address] Urinalysison 02-13-2023 Appearance (U) Clear Normal Clear [facility] Comment on above: Order Comment: Name Collection Type:: Clean-Voided Midstream Performed By: #### A DDONUAPLUS, UHCG, CUU #### [address] Bilirubin,Urine Negative Normal Negative [facility] Comment on above: Order Comment: Name Collection Type:: Clean-Voided Midstream Performed By: #### A DDONUAPLUS, UHCG, CUU #### [address] Glucose Ql (U) Normal Normal Normal [facility] Comment on above: Order Comment: Name Collection Type:: Clean-Voided Midstream Performed By: #### A DDONUAPLUS, UHCG, CUU #### [address] Ketones Ql (U) Trace High Negative [facility] Comment on above: Order Comment: Name Collection Type:: Clean-Voided Midstream Performed By: #### A DDONUAPLUS, UHCG, CUU #### [address] Leukocyte esterase Test strip Ql (U) Negative Normal Negative [facility] Comment on above: Order Comment: Name Collection Type:: Clean-Voided Midstream Performed By: #### A DDONUAPLUS, UHCG, CUU #### [place] [address] [place] Nitrite,Urine Negative Normal Negative [facility] Comment on above: Order Comment: Name Collection Type:: Clean-Voided Midstream Performed By: #### A DDONUAPLUS, UHCG, CUU #### [place] [address] [place] Occult Blood,Urine Negative Normal Negative [facility] Comment on above: Order Comment: Name Collection Type:: Clean-Voided Midstream Performed By: #### A DDONUAPLUS, UHCG, CUU #### [place] [address] [place] Protein,Urine Negative Normal Negative [facility] Comment on above: Order Comment: Name Collection Type:: Clean-Voided Midstream Performed By: #### A DDONUAPLUS, UHCG, CUU #### [address] Specificy [place],Urine 1.017 Normal 1.001-1.030 [facility] Comment on above: Order Comment: Name Collection Type:: Clean-Voided Midstream Performed By: #### A DDONUAPLUS, UHCG, CUU #### [place] [address] [place] Urobilinogen,Urine Normal Normal Normal [facility] Comment on above: Order Comment: Name Collection Type:: Clean-Voided Midstream Performed By: #### A DDONUAPLUS, UHCG, CUU #### [address] Urine clarity by refractomet ry automatedOrdered By: Roseline Mejia on 02-13-2023 Clarity Refractometry automated (U) Clear Clear [facility] Urine glucose measurement by automated test strip (mass/volume)Ordered By: Roseline Mejia on 02-13-2023 Glucose Auto test strip (U) [Mass/Vol] Normal mg/dL Normal [facility] Urine hemoglobin detection b y automated test stripOrdered By: Roseline Mejia on 02-13-2023 Hemoglobin Auto test strip Ql (U) Negative Negative [facility] Urine leukocyte esterase det ection by automated test stripOrdered By: Roseline Mejia on 02-13-2023 Leukocyte esterase Auto test strip Ql (U) Negative Negative [facility] Urine pH measurement by auto mated test stripOrdered By: Roseline Mejia on 02-13-2023 pH (U) 5.5 [pH] Normal 5.0-9.0 [facility] Comment on above: Order Comment: Name Collection Type:: Clean-Voided Midstream Performed By: #### A DDONUAPLUS, UHCG, CUU #### [facility] [address] Urobilinogen Auto test strip (U) [Mass/Vol]Ordered By: Roseline Mejia on 02-13-2023 Urobilinogen (U) [Mass/Vol] Normal mg/dL Normal [facility] CBC W Auto Differential pane l (Bld)on 02-12-2023 Basophils (Bld) [#/Vol] 0.02 x10*3/uL Normal 0.00-0.10 [facility] Comment on above: Performed By: #### 5 7021-8 #### OUMAR BRICEÑO ([id number]) [facility] [place] ([facility]) [address] [place] [address] Basophils/100 WBC (Bld) 0.5 % Normal 0.0-2.0 [facility] Comment on above: Performed By: #### 5 7021-8 #### OUMAR BRICEÑO ([id number]) [facility] ([facility]) [address] [place] [address] Eosinophils (Bld) [#/Vol] 0.06 x10*3/uL Normal 0.00-0.70 [facility] Comment on above: Performed By: #### 5 7021-8 #### OUMAR BRICEÑO ([id number]) [facility] [place] [place] ([facility]) [address] [place] [address] Eosinophils/100 WBC (Bld) 1.4 % Normal 0.0-6.0 [facility] Comment on above: Performed By: #### 5 7021-8 #### OUMAR BRICEÑO ([id number]) [facility] [place] [place] [facility] ([facility]) [address] [place] [address] Erythrocyte distribution width (RBC) [Ratio] 12.1 % Normal 11.5-14.5 [facility] Comment on above: Performed By: #### 5 7021-8 #### OUMAR BRICEÑO ([id number]) [facility] [place] [place] [facility] ([facility]) [address] [place] [address] Hematocrit (Bld) [Volume fraction] 37.9 % Normal 36.0-46.0 [facility] Comment on above: Performed By: #### 5 7021-8 #### OUMAR BRICEÑO ([id number]) [facility] [place] [place] [facility] ([facility]) [address] [place] [address] Hemoglobin (Bld) [Mass/Vol] 12.8 g/dL Normal 12.0-16.0 [facility] Comment on above: Performed By: #### 5 7021-8 #### OUMAR BRICEÑO ([id number]) [facility] [place] [place] [facility] ([facility] [address] [place] [address] Immature granulocytes (Bld) [#/Vol] 0.01 x10*3/uL Normal 0.00-0.70 [facility] Comment on above: Performed By: #### 5 7021-8 #### OUMAR BRICEÑO (78258) [facility] [place] ([facility] [address] [place] [address] Immature granulocytes/100 WBC (Bld) 0.2 % Normal 0.0-0.9 [facility] Comment on above: Result Comment: Janny ture Granulocyte Count (IG) includes promyelocytes, myelocytes and metamyelocytes but does not include bands. Percent differential counts (%) should be interpreted in the context of the absolute cell counts (cells/UL). Performed By: #### 5 7021-8 #### OUMAR BRICEÑO ([id number]) [facility] [place] [facility] ([facility]) [id number] [place] [address] Lymphocytes (Bld) [#/Vol] 1.63 x10*3/uL Normal 1.20-4.80 [facility] Comment on above: Performed By: #### 5 7021-8 #### OUMAR BRICEÑO (65773) [facility] [place] [place] [facility] ([facility]) [address] [place] [address] 92012 Lymphocytes/100 WBC (Bld) 38.9 % Normal 13.0-44.0 [facility] Comment on above: Performed By: #### 5 7021-8 #### OUMAR BRICEÑO (66989) [facility] [place] [facility] ([facility]) [address] [place] [address] 18845 MCH (RBC) [Entitic mass] 30.5 pg Normal 26.0-34.0 [facility] Comment on above: Performed By: #### 5 7021-8 #### OUMAR BRICEÑO (76432) [facility] [place] [facility] ([facility]) [address] [place] [address] 24391 MCHC (RBC) [Mass/Vol] 33.8 g/dL Normal 32.0-36.0 [facility] Comment on above: Performed By: #### 5 7021-8 #### OUMAR BRICEÑO (37283) [facility] [place] [facility] ([facility]) [address] [place] [address] 51204 MCV (RBC) [Entitic vol] 91 fL Normal 80-100 [facility] Comment on above: Performed By: #### 5 7021-8 #### OUMAR BRICEÑO ([id number]) [facility] [place] [place] [facility] ([facility]) [address] [place] [address] 81407 Monocytes (Bld) [#/Vol] 0.26 x10*3/uL Normal 0.10-1.00 [facility] Comment on above: Performed By: #### 5 7021-8 #### OUMAR BRICEÑO (82491) [facility] [place] [place] [facility] ([facility]) [address] [place] [address] 80365 Monocytes/100 WBC (Bld) 6.2 % Normal 2.0-10.0 [facility] Comment on above: Performed By: #### 5 7021-8 #### OUMAR BRICEÑO (91952) [facility] [place] [place] [facility] ([facility]) [address] [place] [address] Neutrophils (Bld) [#/Vol] 2.21 x10*3/uL Normal 1.20-7.70 [facility] Comment on above: Result Comment: Perc ent differential counts (%) should be interpreted in the context of the absolute cell counts (cells/uL). Performed By: #### 5 7021-8 #### OUMAR BRICEÑO (86253) [facility] [place] [facility] ([facility]) [address] [place] [address] Neutrophils/100 WBC (Bld) 52.8 % Normal 40.0-80.0 [facility] Comment on above: Performed By: #### 5 7021-8 #### OUMAR BRICEÑO (84094) [facility] [place] [place] [facility] ([facility]) [address] [place] [address] Nucleated RBC/100 WBC (Bld) [Ratio] 0.0 /100 WBCs Normal 0.0-0.0 [facility] Comment on above: Performed By: #### 5 7021-8 #### OUMAR BRICEÑO (07299) [facility] [place] [place] [facility] ([facility]) [address] [place] [address] Platelets (Bld) [#/Vol] 291 x10*3/uL Normal 150-450 [facility] Comment on above: Performed By: #### 5 7021-8 #### OUMAR BRICEÑO (26109) [facility] [place] [facility] ([facility]) [address] [place] [address] RBC (Bld) [#/Vol] 4.19 x10*6/uL Normal 4.00-5.20 [facility] Comment on above: Performed By: #### 5 7021-8 #### OUMAR BRICEÑO (93516) [facility] [place] [facility] ([facility]) [address] [place] [address] WBC (Bld) [#/Vol] 4.2 x10*3/uL Low 4.4-11.3 [facility] Comment on above: Performed By: #### 5 7021-8 #### OUMAR BRICEÑO (43388) [facility] [place] [facility] ([facility]) [address] [place] [address] Comprehensive metabolic 2000 panelon 02-12-2023 Albumin BCP dye [Mass/Vol] 4.2 g/dL Normal 3.4-5.0 [facility] Comment on above: Performed By: #### 2 4323-8 #### OUMAR BRICEÑO (01763) [facility] [place] [place] [facility] ([facility]) [address] [place] [address] ALP [Catalytic activity/Vol] 55 U/L Normal 33-110 [facility] Comment on above: Performed By: #### 2 4323-8 #### OUMAR BRICEÑO (91970) [facility] [place] [place] [facility] ([facility]) [address] [place] [address] ALT With P-5'-P [Catalytic activity/Vol] 13 U/L Normal 7-45 [facility] Comment on above: Result Comment: Umm ents treated with Sulfasalazine may generate falsely decreased results for ALT. Performed By: #### 2 4323-8 #### OUMAR BRICEÑO (66096) [facility] [place] [place] [facility] ([facility]) [address] [place] [address] Anion gap [Moles/Vol] 13 mmol/L Normal 10-20 [facility] Comment on above: Performed By: #### 2 4323-8 #### OUMAR BRICEÑO (92550) [facility] [place] [place] [facility] ([facility]) [address] [place] [address] AST With P-5'-P [Catalytic activity/Vol] 21 U/L Normal 9-39 [facility] Comment on above: Performed By: #### 2 4323-8 #### OUMAR BRICEÑO (74634) [facility] [place] [facility] ([facility]) [address] [place] [address] Bilirubin [Mass/Vol] 0.5 mg/dL Normal 0.0-1.2 [facility] Comment on above: Performed By: #### 2 4323-8 #### OUMAR BRICEÑO (02683) [facility] [place] [place] [facility] ([facility]) [address] [place] [address] Calcium [Mass/Vol] 8.9 mg/dL Normal 8.6-10.3 [facility] Comment on above: Performed By: #### 2 4323-8 #### OUMAR BRICEÑO (79817) [facility] [place] [place] [facility] ([facility]) [address] [place] [address] Chloride [Moles/Vol] 107 mmol/L Normal 98-107 [facility] Comment on above: Performed By: #### 2 4323-8 #### OUMAR BRICEÑO (70297) [facility] [place] [place] [facility] ([facility]) [address] [place] [address] CO2 [Moles/Vol] 23 mmol/L Normal 21-32 [facility] Comment on above: Performed By: #### 2 4323-8 #### OUMAR BRICEÑO (87378) [facility] [place] [place] [facility] ([facility]) [address] [place] [address] Creatinine [Mass/Vol] 0.73 mg/dL Normal 0.50-1.05 [facility] Comment on above: Performed By: #### 2 4323-8 #### OUMAR BRICEÑO (05261) [facility] [place] [place] [facility] ([facility]) [address] [place] [address] GFR/1.73 sq M.predicted MDRD (S/P/Bld) [Vol rate/Area] mL/min/{1.73_m2} Normal >60 [facility] Comment on above: Result Comment: Calc ulations of estimated GFR are performed using the 2020 CKD-EPI Study Refit equation without the race variable for the IDMS-Traceable creatinine methods. https://jasn.asnjournals.org/content//ASN.71184293 88 Performed By: #### 2 4323-8 #### OUMAR BRICEÑO (38386) [facility] [place] [place] [facility] ([facility]) [address] [place] [address] Glucose [Mass/Vol] 84 mg/dL Normal 74-99 [facility] Comment on above: Performed By: #### 2 4323-8 #### OUMAR BRICEÑO (70214) [facility] [place] [place] [facility] ([facility]) [address] [place] [address] Potassium [Moles/Vol] 3.6 mmol/L Normal 3.5-5.3 [facility] Comment on above: Performed By: #### 2 4323-8 #### OUMAR BRICEÑO (44237) [facility] [place] [place] [facility] ([facility]) [address] [place] [address] Protein [Mass/Vol] 7.0 g/dL Normal 6.4-8.2 [facility] Comment on above: Performed By: #### 2 4323-8 #### OUMAR BRICEÑO (00063) [facility] [place] [place] [facility] ([facility]) [address] [place] [address] Sodium [Moles/Vol] 139 mmol/L Normal 136-145 [facility] Comment on above: Performed By: #### 2 4323-8 #### OUMAR BRICEÑO (28920) [facility] [place] [place] [facility] ([facility]) [address] [place] [address] Urea nitrogen [Mass/Vol] 9 mg/dL Normal 6-23 [facility] Comment on above: Performed By: #### 2 4323-8 #### OUMAR BRICEÑO (36162) [facility] [place] [place] [facility] ([facility]) [address] [place] [address] Lactateon 02-12-2023 Lactate [Moles/Vol] 0.6 mmol/L Normal 0.4-2.0 [facility] Comment on above: Order Comment: Venip uncture immediately after or during the administration of Metamizole may lead to falsely low results. Testing should be performed immediately prior to Metamizole dosing. Performed By: #### 2 524-7 #### OUMAR BRICEÑO (37814) [facility] [place] [place] ([facility]) [address] [place] [address] Triacylglycerol lipaseon Lipase [Catalytic activity/Vol] 43 U/L Normal 9-82 [facility] Comment on above: Order Comment: Venip uncture immediately after or during the administration of Metamizole may lead to falsely low results. Testing should be performed immediately prior to Metamizole dosing. Performed By: #### 3 040-3 #### OUMAR BRICEÑO (36717) [facility] [place] ([facility]) [address] [place] [address] Urinalysis complete panel (U )on 02-12-2023 Appearance (U) Clear Normal Clear [facility] Comment on above: Performed By: #### 2 4356-8 #### OUMAR BRICEÑO (17589) [facility] [place] ([facility]) [address] [place] [address] Bilirubin (U) [Mass/Vol] Negative Normal NEGATIVE [facility] Comment on above: Performed By: #### 2 4356-8 #### OUMAR BRICEÑO (90035) [facility] [place] [place] [facility] ([facility]) [address] [place] [address] Color (U) Yellow Normal Straw, Yellow [facility] Comment on above: Performed By: #### 2 4356-8 #### OUMAR BRICEÑO (38002) [facility] [place] [place] [facility] ([facility]) [address] [place] [address] Glucose Auto test strip (U) [Mass/Vol] Negative Normal NEGATIVE [facility] Comment on above: Performed By: #### 2 4356-8 #### OUMAR BRICEÑO (75218) [facility] [place] [place] [facility] ([facility]) [address] [place] [address] Ketones (U) [Mass/Vol] Negative Normal NEGATIVE [facility] Comment on above: Performed By: #### 2 4356-8 #### OUMAR BRICEÑO (28314) [facility] [place] [place] [facility] ([facility]) [address] [place] [address] Leukocyte esterase Auto test strip Ql (U) Negative Normal NEGATIVE [facility] Comment on above: Performed By: #### 2 4356-8 #### OUMAR BRICEÑO (95176) [facility] [place] [place] [facility] ([facility]) [address] [place] [address] Nitrite Auto test strip Ql (U) Negative Normal NEGATIVE [facility] Comment on above: Performed By: #### 2 4356-8 #### OUMAR BRICEÑO (32208) [facility] [place] [place] [facility] ([facility]) [address] [place] [address] pH (U) 6.0 [pH] Normal 5.0, 5.5, 6.0, 6.5, 7.0, 7.5, 8.0 [facility] Comment on above: Performed By: #### 2 4356-8 #### OUMAR BRICEÑO (84633) [facility] [place] [place] [facility] ([facility]) [address] [place] [address] Protein (U) [Mass/Vol] Negative Normal NEGATIVE [facility] Comment on above: Performed By: #### 2 4356-8 #### OUMAR BRICEÑO (97768) [facility] [place] [place] [facility] ([facility]) [address] [place] [address] RBC (U) [#/Vol] Negative Normal NEGATIVE [facility] Comment on above: Performed By: #### 2 4356-8 #### OUMAR BRICEÑO (80359) [facility] [place] [place] [facility] ([facility]) [address] [place] [address] Specific gravity (U) [Rel density] 1.021 Normal 1.005-1.035 [facility] Comment on above: Performed By: #### 2 4356-8 #### OUMAR BRICEÑO (97937) [facility] [place] [place] ([facility]) [address] [place] [address] Urobilinogen (U) [Mass/Vol] mg/dL Normal <2.0 [facility] Comment on above: Performed By: #### 2 4356-8 #### OUMAR BRICEÑO (97174) [facility] [place] ([facility]) [address] [place] [address] CNPNon 02-11-2023 CNPN Normal [facility] HISTORY PHYSICALon HISTORY PHYSICAL HNO ID: [id number] Author: Vic Ramos MD Service: Pain Management [...] 10, 2023 TIME: 2:00 PM [facility] HISTORY PHYSICAL HNO ID: [id number] Author: Anam Carter APRN.OPERATIONAL TRAINER Service: General Internal Medicine Author Type: Nurse Practitioner Type: HANDP Filed: 02/10/2023 2:04 PM Note Text: Abbey Garcia returns to [facility] for the treatment of [...] syndrome Plan: Block celiac plexus Anam Carter APRN.OPERATIONAL TRAINER [facility] OPERATIVE NOon 02-10-2023 OPERATIVE NO HNO ID: [id number] Author: Vic Ramos MD Service: Pain Management Author Type: Anesthesiologist Type: Operative Report Filed: 02/10/2023 2:41 PM Note Text: [facility] Pre-Procedure Note Patient Name: Abbey Garcia SUBJECTIVE: Abbey Garcia is a 32 year old female who presents to [facility]. This is her 1st. Patient denies any contraindications to the procedure including . 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 OBJECTIVE: BP 121/74 [...] procedure. Vic Ramos MD February 10, 2023 [facility] Post-Procedure Note Patient [...] MD February 10, 2023 day of surgery [facility] Family Medicine Office/Clini c Noteon 02-03-2023 Family Medicine Office/Clinic Note Normal [facility] Comment on above: Result Comment: Elec tronically Signed By: Jaquan Paula\.br\Date and Time Signed: 02/03/23 15:18 EST CNPNon 01-15-2023 CNPN Normal [facility] VASC US MESENTERIC ARTERY DU PLEX COMPLETEon 01-14-2023 VASC US MESENTERIC [place] [address] Vascular Lab Report VAS US MESENTERIC ARTERY DUPLEX COMPLETE Patient Name: ABBEY PHIPPS Reading Physician: [id number] Jaquelin Boggs MD, RPVI Study Date: 01/14/2023 Ordering Provider: [id number] SHERRY MAGAÑA MRN/PID: [id number] Fellow: Technologist: Anam Mc RVT Date of /Age: 2 1990 / years Technologist 2: Gender: F Admission Status: Outpatient Location Performed: [facility] 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 History of gastric bypass with [...] PSV 116 cm/s Splenic PSV 77 cm/s 45730 Jaquelin Boggs MD, RPVI Final Normal [facility] CBC W Auto Differential pane l (Bld)on 01-13-2023 Basophils (Bld) [#/Vol] 0.04 x10*3/uL Normal 0.00-0.10 [facility] Comment on above: Performed By: #### 5 7021-8 #### MELISA Galvan (70537) [facility] () [address] [place] [address] Basophils/100 WBC (Bld) 0.7 % Normal 0.0-2.0 [facility] Comment on above: Performed By: #### 5 7021-8 #### MELISA Galvan (82909) [facility] () [address] [place] [address] Eosinophils (Bld) [#/Vol] 0.13 x10*3/uL Normal 0.00-0.70 [facility] Comment on above: Performed By: #### 5 7021-8 #### MELISA Galvan (28140) [facility] () [address] [place] [address] Eosinophils/100 WBC (Bld) 2.2 % Normal 0.0-6.0 [facility] Comment on above: Performed By: #### 5 7021-8 #### MELISA Galvan (18664) [facility] () [address] [place] [address] Erythrocyte distribution width (RBC) [Ratio] 12.4 % Normal 11.5-14.5 [facility] Comment on above: Performed By: #### 5 7021-8 #### MELISA Galvan (15977) [facility] () [address] [place] [address] Hematocrit (Bld) [Volume fraction] 36.6 % Normal 36.0-46.0 [facility] Comment on above: Performed By: #### 5 7021-8 #### MELISA Galvan (00551) [facility] () [address] [place] [address] Hemoglobin (Bld) [Mass/Vol] 12.6 g/dL Normal 12.0-16.0 [facility] Comment on above: Performed By: #### 5 7021-8 #### MELISA Galvan (27106) [facility] () [address] [place] [address] Immature granulocytes (Bld) [#/Vol] 0.01 x10*3/uL Normal 0.00-0.70 [facility] Comment on above: Performed By: #### 5 7021-8 #### MELISA Galvan (15125) [facility] () [address] [place] [address] Immature granulocytes/100 WBC (Bld) 0.2 % Normal 0.0-0.9 [facility] Comment on above: Result Comment: Janny ture Granulocyte Count (IG) includes promyelocytes, myelocytes and metamyelocytes but does not include bands. Percent differential counts (%) should be interpreted in the context of the absolute cell counts (cells/UL). Performed By: #### 5 7021-8 #### MELISA Galvan (77599) [facility] () [address] [place] [address] Lymphocytes (Bld) [#/Vol] 2.26 x10*3/uL Normal 1.20-4.80 [facility] Comment on above: Performed By: #### 5 7021-8 #### MELISA Galvan (50944) [facility] () [address] [place] [address] Lymphocytes/100 WBC (Bld) 39.0 % Normal 13.0-44.0 [facility] Comment on above: Performed By: #### 5 7021-8 #### MELISA Galvan (82211) [facility] () [address] [place] [address] MCH (RBC) [Entitic mass] 30.7 pg Normal 26.0-34.0 [facility] Comment on above: Performed By: #### 5 7021-8 #### MELISA Galvan (34003) [facility] () [address] [place] [address] MCHC (RBC) [Mass/Vol] 34.4 g/dL Normal 32.0-36.0 [facility] Comment on above: Performed By: #### 5 7021-8 #### MELISA Galvan (71678) [facility] () [address] [place] [address] MCV (RBC) [Entitic vol] 89 fL Normal 80-100 [facility] Comment on above: Performed By: #### 5 7021-8 #### MELISA Galvan (89534) [facility] () [address] [place] [address] Monocytes (Bld) [#/Vol] 0.41 x10*3/uL Normal 0.10-1.00 [facility] Comment on above: Performed By: #### 5 7021-8 #### MELISA Galvan (62238) [facility] () [address] [place] [address] Monocytes/100 WBC (Bld) 7.1 % Normal 2.0-10.0 [facility] Comment on above: Performed By: #### 5 7021-8 #### MELISA Galvan (21776) [facility] () [address] [place] [address] Neutrophils (Bld) [#/Vol] 2.95 x10*3/uL Normal 1.20-7.70 [facility] Comment on above: Result Comment: Perc ent differential counts (%) should be interpreted in the context of the absolute cell counts (cells/uL). Performed By: #### 5 7021-8 #### MELISA Galvan (56885) [facility] () [address] [place] [address] Neutrophils/100 WBC (Bld) 50.8 % Normal 40.0-80.0 [facility] Comment on above: Performed By: #### 5 7021-8 #### MELISA Galvan (04806) [facility] () [address] [place] [address] Nucleated RBC/100 WBC (Bld) [Ratio] 0.0 /100 WBCs Normal 0.0-0.0 [facility] Comment on above: Performed By: #### 5 7021-8 #### MELISA Galvan (92728) [facility] () [address] [place] [address] Platelets (Bld) [#/Vol] 222 x10*3/uL Normal 150-450 [facility] Comment on above: Performed By: #### 5 7021-8 #### MELISA Galvan (75679) [facility] () [address] [place] [address] RBC (Bld) [#/Vol] 4.11 x10*6/uL Normal 4.00-5.20 [facility] Comment on above: Performed By: #### 5 7021-8 #### MELISA Galvan (19902) [facility] () [address] [place] [address] WBC (Bld) [#/Vol] 5.8 x10*3/uL Normal 4.4-11.3 [facility] Comment on above: Performed By: #### 5 7021-8 #### MELISA Galvan (33814) [facility] () [address] [place] [address] Comprehensive metabolic 2000 panelon 01-13-2023 Albumin [Mass/Vol] 4.2 g/dL Normal 3.5-5.0 [facility] Comment on above: Performed By: #### 2 4323-8 #### MELISA Galvan (29126) [facility] () [address] [place] [address] ALP (Bld) [Catalytic activity/Vol] 74 U/L Normal 35-125 [facility] Comment on above: Performed By: #### 2 4323-8 #### MELISA Galvan (12241) [facility] () [address] [place] [address] ALT [Catalytic activity/Vol] 15 U/L Normal 5-40 [facility] Comment on above: Performed By: #### 2 4323-8 #### MELISA Galvan (44078) [facility] () [address] [place] [address] Anion gap [Moles/Vol] 10 mmol/L Normal <=19 [facility] Comment on above: Performed By: #### 2 4323-8 #### MELISA Galvan ([id number]) [facility] () [address] [place] [address] AST [Catalytic activity/Vol] 26 U/L Normal 5-40 [facility] Comment on above: Performed By: #### 2 4323-8 #### MELISA Galvan ([id number]) [facility] () [address] [place] [address] Bilirubin [Mass/Vol] 0.5 mg/dL Normal 0.1-1.2 [facility] Comment on above: Performed By: #### 2 4323-8 #### MELISA Galvan ([id number]) [facility] () [address] [place] [address] Calcium [Mass/Vol] 9.1 mg/dL Normal 8.5-10.4 [facility] Comment on above: Performed By: #### 2 4323-8 #### MELISA Galvan ([id number]) [facility] () [address] [place] [address] Chloride [Moles/Vol] 103 mmol/L Normal 97-107 [facility] Comment on above: Performed By: #### 2 4323-8 #### MELISA Galvan ([id number]) [facility] () [address] [place] [address] CO2 [Moles/Vol] 23 mmol/L Low 24-31 [facility] Comment on above: Performed By: #### 2 4323-8 #### MELISA Galvan ([id number]) [facility] () [address] [place] [address] Creatinine [Mass/Vol] 0.70 mg/dL Normal 0.40-1.60 [facility] Comment on above: Performed By: #### 2 4323-8 #### MELISA Galvan ([id number]) [facility] [facility] () [address] [place] [address] GFR/1.73 sq M.predicted MDRD (S/P/Bld) [Vol rate/Area] mL/min/{1.73_m2} Normal >60 [facility] Comment on above: Result Comment: Calc ulations of estimated GFR are performed using the 2020 CKD-EPI Study Refit equation without the race variable for the IDMS-Traceable creatinine methods. https://jasn.asnjournals.org/content//ASN.18266119 88 Performed By: #### 2 4323-8 #### MELISA Galvan ([id number]) [facility] () [address] [place] [address] Glucose [Mass/Vol] 89 mg/dL Normal 65-99 [facility] Comment on above: Performed By: #### 2 4323-8 #### MELISA Galvan ([id number]) [facility] () [address] [place] [address] Potassium [Moles/Vol] 3.5 mmol/L Normal 3.4-5.1 [facility] Comment on above: Performed By: #### 2 4323-8 #### MELISA Galvan ([id number]) [facility] () [address] [place] [address] Protein [Mass/Vol] 6.9 g/dL Normal 5.9-7.9 [facility] Comment on above: Performed By: #### 2 4323-8 #### MELISA Galvan ([id number]) [facility] () [address] [place] [address] Sodium [Moles/Vol] 136 mmol/L Normal 133-145 [facility] Comment on above: Performed By: #### 2 4323-8 #### MELISA Galvan ([id number]) [facility] () [address] [place] [address] Urea nitrogen [Mass/Vol] 13 mg/dL Normal 8-25 [facility] Comment on above: Performed By: #### 2 4323-8 #### MELISA Galvan ([id number]) [facility] () [address] [place] [address] HCG ( test) IA.rapi d Ql (U)on 01-13-2023 HCG ( test) Ql (U) Negative Normal NEGATIVE [facility] Comment on above: Performed By: #### 8 0384-1 #### MELISA Galvan ([id number]) [facility] () [address] [place] [address] Urinalysis complete panel (U )on 01-13-2023 Appearance (U) Clear Normal Clear [facility] Comment on above: Performed By: #### 2 4356-8 #### MELISA Galvan ([id number]) [facility] () [address] [place] [address] Bilirubin (U) [Mass/Vol] Negative Normal NEGATIVE [facility] Comment on above: Performed By: #### 2 4356-8 #### MELISA Galvan ([id number]) [facility] () [address] [place] [address] Color (U) Light-Yellow Normal Light-Yellow, Yellow, Dark-Yellow [facility] Comment on above: Performed By: #### 2 4356-8 #### MELISA Galvan ([id number]) [facility] () [address] [place] [address] Glucose Auto test strip (U) [Mass/Vol] Normal Normal Normal [facility] Comment on above: Performed By: #### 2 4356-8 #### MELISA Galvan ([id number]) [facility] () [address] [place] [address] Ketones (U) [Mass/Vol] Negative Normal NEGATIVE [facility] Comment on above: Performed By: #### 2 4356-8 #### MELISA Galvan ([id number]) [facility] () [address] [place] [address] Leukocyte esterase Auto test strip Ql (U) Negative Normal NEGATIVE [facility] Comment on above: Performed By: #### 2 4356-8 #### MELISA Galvan (60907) [facility] () [address] [place] [address] Nitrite Auto test strip Ql (U) Negative Normal NEGATIVE [facility] Comment on above: Performed By: #### 2 4356-8 #### MELISA Galvan ([id number]) [facility] () [address] [place] [address] pH (U) 7.0 [pH] Normal 5.0, 5.5, 6.0, 6.5, 7.0, 7.5, 8.0 [facility] Comment on above: Performed By: #### 2 4356-8 #### MELISA Galvan ([id number]) [facility] () [address] [place] [address] Protein (U) [Mass/Vol] Negative Normal NEGATIVE, 10 (TRACE), 20 (TRACE) [facility] Comment on above: Performed By: #### 2 4356-8 #### MELISA Galvan ([id number]) [facility] () [address] [place] [address] RBC (U) [#/Vol] Negative Normal NEGATIVE [facility] Comment on above: Performed By: #### 2 4356-8 #### MELISA Galvan (29985) [facility] () [address] [place] [address] Specific gravity (U) [Rel density] 1.010 Normal 1.005-1.035 [facility] Comment on above: Performed By: #### 2 4356-8 #### MELISA Galvan (74353) [facility] () [address] [place] [address] Urobilinogen (U) [Mass/Vol] Normal Normal Normal [facility] Comment on above: Performed By: #### 2 4356-8 #### MELISA Galvan (63716) [facility] () [address] [place] [address] CNPNon 01-11-2023 CNPN Normal [facility] CNPNon 01-06-2023 CNPN Normal [facility] Auto Diffon 12-31-2022 Basophils/100 WBC (Bld) 0.6 % Normal 0.0-2.0 [facility] Comment on above: Order Comment: Order Added by Discern Expert. Performed By: #### 2 883129, 35513900, 8832787, 1745416, 26207794, 0766321, 2376530 ####[address] [place] [address] Basophils/Leukocyte s Auto (Bld) [Pure # fraction] 0.0 E9/L Normal 0.0-0.2 [facility] Comment on above: Order Comment: Order Added by Discern Expert. Performed By: #### 2 375081, 32566359, 7193587, 0181793, 16759675, 9009839, 9237891 ####[address] [address] Eosinophils/100 WBC (Bld) 0.4 % Normal 0.0-8.0 [facility] Comment on above: Order Comment: Order Added by Discern Expert. Performed By: #### 2 312840, 69612049, 0041468, 7833094, 75300283, 7050901, 9676557 ####[address] [address] Eosinophils/Leukocy stevan Auto (Bld) [Pure # fraction] 0.0 E9/L Normal 0.0-0.5 [facility] Comment on above: Order Comment: Order Added by Discern Expert. Performed By: #### 2 002700, 15521993, 3772766, 3949108, 97449768, 2824949, 6222677 ####[address] [address] Lymphocytes/100 WBC (Bld) 42.3 % Normal 14.0-50.0 [facility] Comment on above: Order Comment: Order Added by Discern Expert. Performed By: #### 2 515515, 33842644, 5452823, 7254993, 83651462, 3542191, 0810630 ####[address] [place] [address] Lymphocytes/Leukocy stevan Auto (Bld) [Pure # fraction] 1.9 E9/L Normal 1.0-4.0 [facility] Comment on above: Order Comment: Order Added by Discern Expert. Performed By: #### 2 879719, 11373320, 5905134, 3192566, 54302396, 0246869, 2455891 ####[address] [place] [address] Monocytes/100 WBC (Bld) 7.9 % Normal 4.0-14.0 [facility] Comment on above: Order Comment: Order Added by Discern Expert. Performed By: #### 2 712029, 94577308, 4335337, 1908055, 02017435, 3025659, 8942631 ####[address] [place] [address] Monocytes/Leukocyte s Auto (Bld) [Pure # fraction] 0.4 E9/L Normal 0.2-1.0 [facility] Comment on above: Order Comment: Order Added by Mariela Expert. Performed By: #### 2 323292, 01362027, 8009756, 8151797, 20682436, 1264901, 9553162 ####[address] [address] Neutrophils/100 WBC (Bld) 48.8 % Normal 36.0-75.0 [facility] Comment on above: Order Comment: Order Added by Discern Expert. Performed By: #### 2 737788, 23280065, 4792283, 7953346, 56798305, 2587977, 6431047 ####[address] [address] Neutrophils/Leukocy stevan Auto (Bld) [Pure # fraction] 2.2 E9/L Normal 2.0-7.5 [facility] Comment on above: Order Comment: Order Added by Discern Expert. Performed By: #### 2 528163, 69254590, 5361004, 7266356, 15071984, 6310170, 9701910 ####[address] [place] [address] B hCG Qualon 12-31-2022 Beta HCG ( test) Ql Negative Normal [facility] Comment on above: Performed By: #### 2 043664, 99127393, 9145628, 8654582, 02062746, 9898337, 5134907 ####[facility] [address] [place] [address] BMPon 12-31-2022 Creatinine [Mass/Vol] 0.8 mg/dL Normal 0.5-1.3 [facility] Comment on above: Performed By: #### 2 848744, 04937231, 5233434, 0723892, 76922468, 9390252, 5291073 ####[facility] [address] [place] [address] Urea nitrogen [Mass/Vol] 16 mg/dL Normal 5-21 [facility] Comment on above: Performed By: #### 2 681928, 17276694, 7265640, 1993394, 80563977, 2400365, 7530813 ####[facility] [address] [place] [address] Urea nitrogen/Creatinine [Mass ratio] 20 No Units Normal 10-20 [facility] Comment on above: Performed By: #### 2 565533, 15994832, 8195001, 9096135, 97539202, 4938618, 9846067 ####[facility] [address] [place] [address] Anion gap [Moles/Vol] 10 mmol/L Normal 6-16 [facility] Comment on above: Performed By: #### 2 425304, 57120548, 1450246, 7727992, 43755590, 7804992, 4905791 ####[facility] [address] [place] [address] Calcium [Mass/Vol] 8.6 mg/dL Low 8.9-11.1 [facility] Comment on above: Performed By: #### 2 280906, 13404880, 5652725, 8709013, 10347029, 0473145, 1455380 ####[facility] [address] [place] [address] Chloride [Moles/Vol] 110 mmol/L Normal 101-111 [facility] Comment on above: Performed By: #### 2 087832, 92749557, 5941518, 1925752, 45068791, 9235544, 4343488 ####[facility] [address] [place] [address] CO2 [Moles/Vol] 20 mmol/L Low 21-31 [facility] Comment on above: Performed By: #### 2 925642, 25967878, 3909626, 2846111, 00509127, 2914770, 5654357 ####[facility] [address] [place] [address] Glucose [Mass/Vol] 87 mg/dL Normal 55-199 [facility] Comment on above: Result Comment: If t his glucose result represents a fasting glucose, interpretation should refer to the following reference range: 55-99 mg/dL Performed By: #### 2 893342, 43951164, 6484064, 2356771, 44348507, 8144204, 0408171 ####[facility] [address] [place] [address] Potassium [Moles/Vol] 3.2 mmol/L Low 3.5-5.3 [facility] Comment on above: Performed By: #### 2 375196, 97358384, 0404710, 6062744, 46419794, 2074700, 6203352 ####[facility] [address] [place] [address] Sodium [Moles/Vol] 137 mmol/L Normal 135-145 [facility] Comment on above: Performed By: #### 2 544888, 53399717, 3698040, 9715386, 97823235, 9024565, 7828574 ####[facility] [address] [place] [address] CBC w/ Auto Diffon 3 Erythrocyte distribution width (RBC) [Ratio] 13.9 % Normal 10.9-14.2 [facility] Comment on above: Performed By: #### 2 871468, 29801041, 5816111, 3493416, 53423777, 9044739, 7236263 ####[facility] [address] [place] [address] Hematocrit (Bld) [Volume fraction] 35.5 % Normal 34.0-46.0 [facility] Comment on above: Performed By: #### 2 764087, 24913706, 9165444, 2822968, 46123401, 0900142, 7607892 ####[address] [address] Hemoglobin (Bld) [Mass/Vol] 12.2 g/dL Normal 12.0-16.0 [facility] Comment on above: Performed By: #### 2 471418, 14706956, 3831202, 4599082, 08982254, 8575006, 5417518 ####[address] [address] MCH (RBC) [Entitic mass] 30.8 pg Normal 27.0-34.0 [facility] Comment on above: Performed By: #### 2 394485, 90066663, 4522046, 7790654, 14727437, 2973506, 0898167 ####[address] [address] MCHC (RBC) [Mass/Vol] 34.4 g/dL Normal 31.4-36.0 [facility] Comment on above: Performed By: #### 2 669416, 27612003, 7949112, 8958326, 81151210, 0181746, 8687628 ####[address] [address] MCV (RBC) [Entitic vol] 89.5 fL Normal 80.0-100.0 [facility] Comment on above: Performed By: #### 2 981919, 88198421, 2410552, 8173733, 76096871, 1654642, 7032021 ####[address] [address] Platelet mean volume (Bld) [Entitic vol] 9.5 fL Normal 6.4-10.8 [facility] Comment on above: Performed By: #### 2 647749, 24493446, 6269602, 0329743, 46333489, 9137123, 0434880 ####[facility] [address] [place] [address] Platelets (Bld) [#/Vol] 177.0 E9/L Normal 150.0-500.0 [facility] Comment on above: Performed By: #### 2 168125, 51634367, 8269158, 7592423, 17398619, 4005224, 3589541 ####[facility] [address] [place] [address] RBC (Bld) [#/Vol] 4.0 E12/L Low 4.3-5.9 [facility] Comment on above: Performed By: #### 2 678939, 99973604, 7116827, 8568669, 76277815, 3111487, 1923919 ####[facility] [address] [place] [address] WBC corrected for nucl RBC Auto (Bld) [#/Vol] 4.4 E9/L Normal 4.0-11.0 [facility] Comment on above: Performed By: #### 2 091038, 55708976, 9687444, 2411770, 78615605, 5689028, 7321211 ####[facility] [address] [place] [address] CHEMISTRYOrdered By: SYSTEM SYSTEM on 12-31-2022 Albumin [...] 10 mmol/L Normal 6 - 16 mEq/L [facility] AST [Catalytic activity/Vol] 32 [iU]/d Normal 5 - 43 Int._Unit/L [facility] Bilirubin [Mass/Vol] 0.5 mg/dL Normal 0.0 - 1.1 mg/dL [facility] Bilirubin.direct [Mass/Vol] 0.1 mg/dL Normal 0.1 [...] rate/Area] 100 mL/min/1.73 m2 Normal >=59mL/min/1.73 m2 [facility] Chem S Comment on [...] g/dL Normal 6.0 - 7.8 gm/dL [facility] Sodium [Moles/Vol] 137 mmol/L Normal 135 - 145 mmol/L [facility] Urea nitrogen [Mass/Vol] 16 mg/dL Normal 5 - 21 mg/dL [facility] Urea nitrogen/Creatinine [Mass ratio] 20 mg/mg Normal 10 - 20 [facility] Consent for Treatmenton 12-16 Consent for Treatment [id number] 34#1.00TIFF Normal [facility] Discharge Instructionson Discharge Instructions [id number] 93#1.00TIFF Normal [facility] ED Clinical Summaryon 2022 ED Clinical Summary Normal [facility] ED Note-Physicianon 01-01-20 ED Note-Physician Normal [facility] Comment on above: Result Comment: Elec tronically Signed By: Lonnie Rios PA-C\.br\Date and Time Signed: 12/31/22 19:15 EST\.br\Electronically Co-Signed By: Mateusz Garcia DO\.br\Date and Time Co-Signed: 12/31/22 19:25 EST ED Patient Education Noteon 12-31-2022 ED Patient Education Note Normal [facility] ED Patient Summaryon 023 ED Patient Summary Normal [facility] HEMATOLOGYOrdered By: SYSTEM SYSTEM on [...] E12/L Low 4.3 - 5.9 E12/L FT [facility] HemeAutoSS WBC corrected for nucl RBC Auto (Bld) [#/Vol] 4.4 E9/L Normal 4.0 - 11.0 E9/L FT HemeAutoSS Hep Func Panelon 12-31-2022 Albumin [Mass/Vol] 3.9 g/dL Normal 3.3-5.0 [facility] Comment on above: Performed By: #### 2 461915, 54389727, 5639838, 8481763, 61893699, 5921065, 0400218 ####[facility] [address] [place] [address] Albumin/Globulin (S) [Mass conc ratio] 1.3 Normal 1.1-2.2 [facility] Comment on above: Performed By: #### 2 421386, 04190675, 5463680, 3619972, 64446995, 1925897, 2772349 ####[address] [address] ALP [Catalytic activity/Vol] 51 Int._Unit/L Normal 21-98 [facility] Comment on above: Performed By: #### 2 280873, 72658560, 5488101, 6038995, 92881819, 1475697, 8627609 ####[address] [address] ALT No additional P-5'-P [Catalytic activity/Vol] 21 Int._Unit/L Normal 6-46 [facility] Comment on above: Performed By: #### 2 033388, 46477570, 6932447, 5334940, 36165128, 0467814, 3907867 ####[address] [address] AST [Catalytic activity/Vol] 32 Int._Unit/L Normal 5-43 [facility] Comment on above: Performed By: #### 2 928126, 20601958, 1176651, 7848448, 23275323, 5652970, 3943360 ####[address] [address] Bilirubin [Mass/Vol] 0.5 mg/dL Normal 0.0-1.1 [facility] Comment on above: Performed By: #### 2 680845, 11005204, 9505044, 4850954, 84682140, 1542522, 5910444 ####[facility] [address] [place] [address] Bilirubin.direct [Mass/Vol] 0.1 mg/dL Normal 0.1-0.4 [facility] Comment on above: Performed By: #### 2 311141, 11554451, 0157154, 1408331, 27860730, 7707838, 2772981 ####[facility] [address] [place] [address] Bilirubin.indirect [Mass or moles/Vol] 0.4 mg/dL Normal 0.1-0.9 [facility] Comment on above: Performed By: #### 2 036983, 75067521, 0638221, 9700714, 81663567, 4651374, 2722581 ####[address] [address] Globulin (S) [Mass/Vol] 2.9 g/dL Normal 1.4-4.0 [facility] Comment on above: Performed By: #### 2 824419, 11801573, 0187140, 7886628, 38370536, 6056915, 5167157 ####[address] [address] Protein [Mass/Vol] 6.8 g/dL Normal 6.0-7.8 [facility] Comment on above: Performed By: #### 2 308331, 74127645, 4374034, 9323358, 60497688, 9776410, 2603029 ####[address] [address] Lipase Levelon 12-31-2022 Lipase [Catalytic activity/Vol] 49 U/L Normal 13-58 [facility] Comment on above: Performed By: #### 2 881606, 71740469, 6620143, 4111844, 00972612, 6771076, 2331542 ####[address] [address] SEROLOGYOrdered By: Stacia Blair on 12-31-2022 Beta HCG ( test) Ql Negative (12/31/22 1:16 PM) Normal [facility] Man Sero UA With Cult Reflexon 2022 Bilirubin Ql (U) Negative Normal Negative [facility] Comment on above: Performed By: #### 1 8556669 ####[facility] [address] [place] [address] Clarity (U) CLEAR Normal Clear [facility] Comment on above: Performed By: #### 1 7705756 ####[address] [address] Color (U) YELLOW Normal Yellow [facility] Comment on above: Performed By: #### 1 4006376 ####[address] [address] Epithelial cells.squamous LM.HPF (Urine sed) [#/Area] 0-2 Normal 0-2 [facility] Comment on above: Performed By: #### 1 8351392 ####[facility] [address] [place] [address] Glucose Test strip (U) [Mass/Vol] Negative Normal Negative [facility] Comment on above: Performed By: #### 1 9703828 ####[address] [address] Hemoglobin Ql (U) Negative Normal Negative [facility] Comment on above: Performed By: #### 1 0772875 ####[facility] [address] [place] [address] Ketones (U) [Mass/Vol] Negative Normal Negative [facility] Comment on above: Performed By: #### 1 5231831 ####[facility] [address] [place] [address] [place].plasma/Lith ium.RBC (Bld) [Mass ratio] 0-3 Normal 0-3 [facility] Comment on above: Performed By: #### 1 4050118 ####[facility] [address] [place] [address] Mucus Ql (Urine sed) TRACE Normal [facility] Comment on above: Performed By: #### 1 1462652 ####[address] [address] Nitrite Ql (U) Negative Normal Negative [facility] Comment on above: Performed By: #### 1 3737254 ####[address] [address] pH (U) 6.0 [pH] Invalid Interpretation Code 5.0-9.0 [facility] Comment on above: Performed By: #### 1 8217558 ####[address] [address] Protein (U) [Mass/Vol] Negative Normal Negative [facility] Comment on above: Performed By: #### 1 8633050 ####[address] [address] Specific gravity (U) [Rel density] 1.015 Invalid Interpretation Code 1.005-1.030 [facility] Comment on above: Performed By: #### 1 1190702 ####[address] [address] Type of Urine collection method Clean Catch Normal [facility] Comment on above: Performed By: #### 1 9317420 ####[address] [address] Urobilinogen Qn (U) 0.2 {Munir'U}/dL Normal 0.0-1.0 [facility] Comment on above: Performed By: #### 1 5410250 ####[address] [address] WBC Auto Ql (U) Negative Normal Negative [facility] Comment on above: Performed By: #### 1 4681614 ####[address] [address] WBC LM.HPF (Urine sed) [#/Area] 0-5 Normal 0-5 [facility] Comment on above: Performed By: #### 1 3619561 ####[address] [address] URINALYSISOrdered By: Marlene Blair on 12-31-2022 Bilirubin [...] PM) Normal Negative [facility] UA Auto SS [place].plasma/Lith ium.RBC (Bld) [Mass ratio] 0-3 /HPF Normal [...] [facility] UA Auto SS Urobilinogen Qn (U) 0.6010706 {Munir'U}/dL Normal 0.0 - 1.0 EU/dL [facility] UA Auto SS WBC Auto Ql (U) Negative (12/31/22 1:16 PM) Normal Negative [facility] UA Auto SS WBC LM.HPF (Urine sed) [#/Area] 0-5 /HPF Normal 0-5/HPF [facility] UA Auto SS eGFRon 12-31-2022 GFR/1.73 sq M.predicted among non-blacks MDRD (S/P/Bld) [Vol rate/Area] 100 mL/min/1.73 m2 Normal >=59 [facility] Comment on above: Order Comment: Order added by Discern Expert. Result Comment: Shade Maker alejandra kidney disease could be indicated at eGFR's of less than 60 mL/min/1.73m2. Kidney failure is indicated at less than 15 mL/min/1.73m2. Performed By: #### 2 885252, 48663723, 4826623, 0733547, 73636886, 6425867, 4984173 ####[facility] [address] [facility] [place] [address] Family Medicine Office/Clini c Noteon 12-29-2022 Family Medicine Office/Clinic Note Normal [facility] Comment on above: Result Comment: Elec tronically Signed By: Cristhian REDDING, Jaquan Johnson\.br\Date and Time Signed: 12/29/22 15:35 EST Provider Letteron 12-29-2022 Provider Letter Normal [facility] CNCOon 12-28-2022 CNCO Letter Text Normal [facility] CNPNon 12-28-2022 CNPN Normal [facility] CNCOon 12-25-2022 CNCO Letter Text Normal [facility] CNPNon 12-23-2022 CNPN Normal [facility] CBC With Platelet and Differ entialon 12-14-2022 Basophils (Bld) [#/Vol] 0.0 10*3/uL Normal 0.0-0.2 [facility] Comment on above: Performed By: #### L IPAS #### [facility] [address] [place] [address] Basophils/100 WBC (Bld) 0.9 % Normal [facility] Comment on above: Performed By: #### L IPAS #### [facility] [address] [place] [address] Eosinophils (Bld) [#/Vol] 0.2 10*3/uL Normal 0.0-0.7 [facility] Comment on above: Performed By: #### L IPAS #### [facility] [address] [place] [address] Eosinophils/100 WBC (Bld) 4.0 % Normal [facility] Comment on above: Performed By: #### L IPAS #### [facility] [address] [place] [address] Erythrocyte distribution width (RBC) [Ratio] 13.2 % Normal 11.5-14.5 [facility] Comment on above: Performed By: #### L IPAS #### [facility] [address] [place] [address] Hematocrit (Bld) [Volume fraction] 36.5 % Low 37.0-47.0 [facility] Comment on above: Performed By: #### L IPAS #### [facility] [address] [place] [address] Hemoglobin (Bld) [Mass/Vol] 12.4 g/dL Normal 12.0-16.0 [facility] Comment on above: Performed By: #### L IPAS #### [facility] [address] [place] [address] Lymphocytes (Bld) [#/Vol] 1.7 10*3/uL Normal 1.0-4.8 [facility] Comment on above: Performed By: #### L IPAS #### [facility] [address] [place] [address] Lymphocytes/100 WBC (Bld) 40.7 % Normal [facility] Comment on above: Performed By: #### L IPAS #### [facility] [address] [place] [address] MCH (RBC) [Entitic mass] 31.0 pg Normal 27.0-31.3 [facility] Comment on above: Performed By: #### L IPAS #### [facility] [address] [place] [address] MCHC 34.0 % Normal 33.0-37.0 [facility] Comment on above: Performed By: #### L IPAS #### [facility] [address] [place] [address] MCV (RBC) [Entitic vol] 91.3 fL Normal 79.4-94.8 [facility] Comment on above: Performed By: #### L IPAS #### [facility] [address] [place] [address] Monocytes (Bld) [#/Vol] 0.3 10*3/uL Normal 0.2-0.8 [facility] Comment on above: Performed By: #### L IPAS #### [facility] [address] [place] [address] Monocytes/100 WBC (Bld) 7.7 % Normal [facility] Comment on above: Performed By: #### L IPAS #### [facility] [address] [place] [address] Neutrophils (Bld) [#/Vol] 2.0 10*3/uL Normal 1.4-6.5 [facility] Comment on above: Performed By: #### L IPAS #### [facility] [address] [place] [address] Neutrophils/100 WBC (Bld) 46.5 % Normal [facility] Comment on above: Performed By: #### L IPAS #### [facility] [address] [place] [address] Platelets (Bld) [#/Vol] 187 10*3/uL Normal 130-400 [facility] Comment on above: Performed By: #### L IPAS #### [facility] [address] [place] [address] RBC (Bld) [#/Vol] 4.00 10*6/uL Low 4.20-5.40 [facility] Comment on above: Performed By: #### L IPAS #### [facility] [address] [place] [address] WBC (Bld) [#/Vol] 4.3 10*3/uL Low 4.8-10.8 [facility] Comment on above: Performed By: #### L IPAS #### [facility] [address] [place] [address] CTA ABDOMEN PELVIS W WO CONT RASTon [...] Addison Lorenzo MD 12/14/22 Final result Normal [facility] Comprehensive Metabolic Pane nestor 12-14-2022 Albumin [Mass/Vol] 4.0 g/dL Normal 3.5-4.6 [facility] Comment on above: Performed By: #### L IPAS #### [facility] [address] [place] [address] ALP [Catalytic activity/Vol] 70 U/L Normal 40-130 [facility] Comment on above: Performed By: #### L IPAS #### [facility] [address] [place] [address] ALT [Catalytic activity/Vol] 20 U/L Normal 0-33 [facility] Comment on above: Performed By: #### L IPAS #### [facility] [address] [place] [address] Anion gap [Moles/Vol] 16 mmol/L Critically high 9-15 [facility] Comment on above: Performed By: #### L IPAS #### [facility] [address] [place] [address] AST [Catalytic activity/Vol] 33 U/L Normal 0-35 [facility] Comment on above: Performed By: #### L IPAS #### [facility] [address] [place] [address] Bilirubin [Mass/Vol] 0.3 mg/dL Normal 0.2-0.7 [facility] Comment on above: Performed By: #### L IPAS #### [facility] [address] [place] [address] Calcium [Mass/Vol] 8.8 mg/dL Normal 8.5-9.9 [facility] Comment on above: Performed By: #### L IPAS #### [facility] [address] [place] [address] Chloride [Moles/Vol] 107 mmol/L Normal 95-107 [facility] Comment on above: Performed By: #### L IPAS #### [facility] [address] [place] [address] CO2 [Moles/Vol] 20 mmol/L Normal 20-31 [facility] Comment on above: Performed By: #### L IPAS #### [facility] [address] [place] [address] Creatinine [Mass/Vol] 0.75 mg/dL Normal 0.50-0.90 [facility] Comment on above: Performed By: #### L IPAS #### [facility] [address] [place] [address] GFR >60.0 Normal >60 [facility] Comment on above: Result Comment: Adán atric [...] secretion. Performed By: #### L IPAS #### [facility] [address] [place] [address] Globulin (S) [Mass/Vol] 2.5 g/dL Normal 2.3-3.5 [facility] Comment on above: Performed By: #### L IPAS #### [facility] [address] [place] [address] Glucose [Mass/Vol] 88 mg/dL Normal 70-99 [facility] Comment on above: Performed By: #### L IPAS #### [facility] [address] [place] [address] Potassium [Moles/Vol] 3.8 mmol/L Normal 3.4-4.9 [facility] Comment on above: Performed By: #### L IPAS #### [facility] [address] [place] [address] Protein [Mass/Vol] 6.5 g/dL Normal 6.3-8.0 [facility] Comment on above: Performed By: #### L IPAS #### [facility] [address] [place] [address] Sodium [Moles/Vol] 143 mmol/L Normal 135-144 [facility] Comment on above: Performed By: #### L IPAS #### [facility] [address] [place] [address] Urea nitrogen [Mass/Vol] 11 mg/dL Normal 6-20 [facility] Comment on above: Performed By: #### L IPAS #### [facility] [address] [place] [address] Lipaseon 12-14-2022 Lipase [Catalytic activity/Vol] 39 U/L Normal 12-95 [facility] Comment on above: Performed By: #### L IPAS #### [facility] [address] [place] [address] POCT Venouson 12-14-2022 Creatinine [Mass/Vol] 0.8 mg/dL Normal 0.6-1.2 [facility] Comment on above: Performed By: #### P GLU #### [facility] [address] [place] [address] GFR >60 Normal >60 [facility] Comment on above: Result Comment: Pedi atric [...] secretion. Performed By: #### P GLU #### [facility] [address] [place] [address] POC Performed on SEE BELOW Normal [facility] Comment on above: Result Comment: Perf ormed on POC Performed By: #### P GLU #### [facility] [address] [place] [address] POC Sample Type KIRA Normal [facility] Comment on above: Performed By: #### P GLU #### [facility] [address] [place] [address] CNCOon 10-26-2023 CNCO Letter Text Normal [facility] ALLIED HEALTHon 12-09-2022 ALLIED HEALTH Normal [facility] CASE MANAGEMon 12-09-2022 CASE MANAGEM Normal [facility] CBC panel Auto (Bld)on 12-09 Erythrocyte distribution width (RBC) [Ratio] 13.5 % Normal 11.5-15.0 [facility] Comment on above: Order Comment: Speci men Type: BLOOD SPECIMENOrdering Facility: [facility] Address: [address] [place] [address] Performed By: #### 5 8410-2 ####[facility] LABCLIA [id number] [place] [address] [place] Hematocrit (Bld) [Volume fraction] 34.9 % Low 36.0-46.0 [facility] Comment on above: Order Comment: Speci men Type: BLOOD SPECIMENOrdering Facility: [facility] Address: [address] [place] [address] Performed By: #### 5 8410-2 ####[facility] LABCLIA [id number] [place] [address] [place] Hemoglobin (Bld) [Mass/Vol] 11.7 g/dL Normal 11.5-15.5 [facility] Comment on above: Order Comment: Speci men Type: BLOOD SPECIMENOrdering Facility: [facility] Address: [address] [place] [address] Performed By: #### 5 8410-2 ####[facility] LABCLIA [id number] [place] [address] [place] MCH (RBC) [Entitic mass] 31.0 pg Normal 26.0-34.0 [facility] Comment on above: Order Comment: Speci men Type: BLOOD SPECIMENOrdering Facility: [facility] Address: [address] [place] [address] Performed By: #### 5 8410-2 ####[facility] LABCLIA [id number] [place] [address] [place] MCHC (RBC) [Mass/Vol] 33.5 g/dL Normal 30.5-36.0 [facility] Comment on above: Order Comment: Speci men Type: BLOOD SPECIMENOrdering Facility: [facility] Address: [address] [place] [address] Performed By: #### 5 8410-2 ####[facility] LABCLIA [id number] [place] [address] [place] MCV (RBC) [Entitic vol] 92.3 fL Normal 80.0-100.0 [facility] Comment on above: Order Comment: Speci men Type: BLOOD SPECIMENOrdering Facility: [facility] Address: [address] [place] [address] Performed By: #### 5 8410-2 ####[facility] LABCLIA [id number] [place] [address] [place] Nucleated RBC (Bld) [#/Vol] 10*3/uL Normal <0.01 [facility] Comment on above: Order Comment: Speci men Type: BLOOD SPECIMENOrdering Facility: [facility] Address: [address] [place] [address] Performed By: #### 5 8410-2 ####[facility] LABCLIA [id number] [place] [address] [place] Platelet mean volume (Bld) [Entitic vol] 12.6 fL Normal 9.0-12.7 [facility] Comment on above: Order Comment: Speci men Type: BLOOD SPECIMENOrdering Facility: [facility] Address: [address] [place] [address] Performed By: #### 5 8410-2 ####[facility] LABCLIA [id number] [place] [address] [place] Platelets (Bld) [#/Vol] 172 10*3/uL Normal 150-400 [facility] Comment on above: Order Comment: Speci men Type: BLOOD SPECIMENOrdering Facility: [facility] Address: [address] [place] [address] Performed By: #### 5 8410-2 ####[facility] LABCLIA [id number] [address] [address] [place] RBC (Bld) [#/Vol] 3.78 10*6/uL Low 3.90-5.20 [facility] Comment on above: Order Comment: Speci men Type: BLOOD SPECIMENOrdering Facility: [facility] Address: [address] [place] [address] Performed By: #### 5 8410-2 ####[facility] LABCLIA [id number] [place] [address] [place] WBC (Bld) [#/Vol] 3.25 10*3/uL Low 3.70-11.00 [facility] Comment on above: Order Comment: Speci men Type: BLOOD SPECIMENOrdering Facility: [facility] Address: [address] [place] [address] Performed By: #### 5 8410-2 ####[facility] LABCLIA [id number] [place] [address] [place] CNDSon 12-09-2022 CNDS Normal [facility] CNPNon 12-09-2022 CNPN Normal [facility] CONSULT PROGon 12-09-2022 CONSULT PROG Normal [facility] Comprehensive metabolic 2000 panelon 12-09-2022 Albumin [Mass/Vol] 3.6 g/dL Low 3.9-4.9 [place] Comment on above: Order Comment: Speci men Type: BLOOD SPECIMENOrdering Facility: [facility] Address: [address] [place] [address] Performed By: #### 2 4323-8, 56555-6, 2777-1 ####[facility] LABCLIA [id number] [place] [address] [place] ALP [Catalytic activity/Vol] 59 U/L Normal 34-123 [facility] Comment on above: Order Comment: Speci men Type: BLOOD SPECIMENOrdering Facility: [facility] Address: [address] [place] [address] Performed By: #### 2 4323-8, , 2776-02 ####[facility] LABCLIA [id number] [place] [address] [place] ALT [Catalytic activity/Vol] 13 U/L Normal 7-38 [facility] Comment on above: Order Comment: Speci men Type: BLOOD SPECIMENOrdering Facility: [facility] Address: [address] [place] [address] Performed By: #### 2 4323-8, , 2776-02 ####[facility] LABCLIA [id number] [place] [address] [place] Anion gap [Moles/Vol] 9 mmol/L Normal 9-18 [facility] Comment on above: Order Comment: Speci men Type: BLOOD SPECIMENOrdering Facility: [facility] Address: [address] [place] [address] Performed By: #### 2 4323-8, , 2776-02 ####[facility] LABCLIA [id number] [place] [address] [place] AST [Catalytic activity/Vol] 22 U/L Normal 13-35 [facility] Comment on above: Order Comment: Speci men Type: BLOOD SPECIMENOrdering Facility: [facility] Address: [address] [place] [address] Performed By: #### 2 4323-8, , 2776-02 ####[facility] LABCLIA [id number] [place] [id number] [place] Bilirubin [Mass/Vol] 0.2 mg/dL Normal 0.2-1.3 [facility] Comment on above: Order Comment: Speci men Type: BLOOD SPECIMENOrdering Facility: [facility] Address: [address] [place] [address] Performed By: #### 2 4323-8, , 2776-02 ####[facility] LABCLIA [id number] [place] [address] [place] Calcium [Mass/Vol] 8.7 mg/dL Normal 8.5-10.2 [place] Comment on above: Order Comment: Speci men Type: BLOOD SPECIMENOrdering Facility: [facility] Address: [address] [place] [address] Performed By: #### 2 4323-8, , 2776-02 ####[facility] LABCLIA [id number] [place] [address] [place] Chloride [Moles/Vol] 108 mmol/L High 97-105 [facility] Comment on above: Order Comment: Speci men Type: BLOOD SPECIMENOrdering Facility: [facility] Address: [address] [place] [address] Performed By: #### 2 4323-8, , 2776-02 ####[facility] LABCLIA [id number] [place] [address] [place] CO2 [Moles/Vol] 23 mmol/L Normal 22-30 [facility] Comment on above: Order Comment: Speci men Type: BLOOD SPECIMENOrdering Facility: [facility] Address: [address] [place] [address] Performed By: #### 2 4323-8, , 2776-02 ####[facility] LABCLIA [id number] [place] [address] [place] Creatinine [Mass/Vol] 0.61 mg/dL Normal 0.58-0.96 [facility] Comment on above: Order Comment: Speci men Type: BLOOD SPECIMENOrdering Facility: [facility] Address: [address] [place] [address] Performed By: #### 2 4323-8, 49161-9, 2777-1 ####[facility] LABIA [id number] [place] [address] [place] Creatinine and Glomerular filtration rate.predicted panel (S/P/Bld) 121 mL/min/1.73m??? Normal >=60 [facility] Comment on above: Order Comment: Geraldo marrero Type: BLOOD SPECIMENOrdering Facility: [facility] Address: [address] [place] [address] Result Comment: Jessica mated Glomerular Filtration Rate [...] ####[facility] LABIA [id number] [place] [address] [place] Glucose [Mass/Vol] 79 mg/dL Normal 74-99 [place] Comment on above: Order Comment: Geraldo marrero Type: BLOOD SPECIMENOrdering Facility: [facility] Address: [address] [place] [address] Result Comment: The [place] [employer] (ADA) provides guidance for cutoff [...] Standards of Medical Care in Diabetes 2016, [place] [employer]. Diabetes Care. 2016.39(Suppl 1). Performed By: #### 2 4323-8, , 2776-02 ####[facility] LABCLIA [id number] [address] [address] [place] Potassium [Moles/Vol] 4.2 mmol/L Normal 3.7-5.1 [facility] Comment on above: Order Comment: Speci men Type: BLOOD SPECIMENOrdering Facility: [facility] Address: [address] [place] [address] Performed By: #### 2 432-8, , 2776-02 ####[facility] LABCLIA [id number] [place] [address] [place] Protein [Mass/Vol] 5.8 g/dL Low 6.3-8.0 [place] Comment on above: Order Comment: Speci men Type: BLOOD SPECIMENOrdering Facility: [facility] Address: [address] [place] [address] Performed By: #### 2 4322-8, , 2776-02 ####[facility] LABCLIA [id number] [place] [id number] [place] Sodium [Moles/Vol] 140 mmol/L Normal 136-144 [place] Comment on above: Order Comment: Speci men Type: BLOOD SPECIMENOrdering Facility: [facility] Address: [address] [place] [address] Performed By: #### 2 432-8, , 2776-02 ####[facility] LABCLIA [id number] [address] [address] [place] Urea nitrogen [Mass/Vol] 16 mg/dL Normal 7-21 [facility] Comment on above: Order Comment: Speci men Type: BLOOD SPECIMENOrdering Facility: [facility] Address: [address] [place] [id number] Performed By: #### 2 4323-8, , 2776-02 ####[facility] LABCLIA [id number] [place] [address] [place] Magnesium SerPl-mCncon 12-09 Magnesium [Mass/Vol] 2.0 mg/dL Normal 1.7-2.3 [facility] Comment on above: Order Comment: Speci men Type: BLOOD SPECIMENOrdering Facility: [facility] Address: [address] [place] [address] Performed By: #### 2 4323-8, 36786-4, 2776-02 ####[facility] LABCLIA [id number] [place] [address] [place] NURSING PROGon 12-09-2022 NURSING PROG Normal [facility] PT EDon 12-09-2022 PT ED Normal [facility] Phosphate SerPl-mCncon 12-09 Phosphate [Mass/Vol] 1.8 mg/dL Low 2.7-4.8 [facility] Comment on above: Order Comment: Speci men Type: BLOOD SPECIMENOrdering Facility: [facility] Address: [address] [place] [address] Result Comment: Resu lt rechecked. Performed By: #### 2 4323-8, , 2776-02 ####[facility] LABCLIA [id number] [place] [address] [place] ALLIED HEALTHon 12-08-2022 ALLIED HEALTH Normal [facility] CBC panel Auto (Bld)on 12-08 Erythrocyte distribution width (RBC) [Ratio] 13.4 % Normal 11.5-15.0 [facility] Comment on above: Order Comment: Speci men Type: BLOOD SPECIMENOrdering Facility: [facility] Address: [address] [place] [address] Performed By: #### 5 8410-2 ####[facility] LABCLIA [id number] [place] [address] [place] Hematocrit (Bld) [Volume fraction] 32.5 % Low 36.0-46.0 [facility] Comment on above: Order Comment: Speci men Type: BLOOD SPECIMENOrdering Facility: [facility] Address: [address] [place] [address] Performed By: #### 5 8410-2 ####[facility] LABIA [id number] [place] [address] [place] Hemoglobin (Bld) [Mass/Vol] 11.1 g/dL Low 11.5-15.5 [facility] Comment on above: Order Comment: Speci men Type: BLOOD SPECIMENOrdering Facility: [facility] Address: [address] [place] [address] Performed By: #### 5 8410-2 ####[facility] [id number] [place] [address] [place] MCH (RBC) [Entitic mass] 31.2 pg Normal 26.0-34.0 [facility] Comment on above: Order Comment: Speci men Type: BLOOD SPECIMENOrdering Facility: [facility] Address: [address] [place] [address] Performed By: #### 5 8410-2 ####[facility] LABIA [id number] [place] [address] [place] MCHC (RBC) [Mass/Vol] 34.2 g/dL Normal 30.5-36.0 [facility] Comment on above: Order Comment: Speci men Type: BLOOD SPECIMENOrdering Facility: [facility] Address: [address] [place] [address] Performed By: #### 5 8410-2 ####[facility] [id number] [place] [address] [place] MCV (RBC) [Entitic vol] 91.3 fL Normal 80.0-100.0 [facility] Comment on above: Order Comment: Speci men Type: BLOOD SPECIMENOrdering Facility: [facility] Address: [address] [place], [place] [address] Performed By: #### 5 8410-2 ####[facility] LABCLIA [id number] [place] [address] [place] Nucleated RBC (Bld) [#/Vol] 10*3/uL Normal <0.01 [facility] Comment on above: Order Comment: Speci men Type: BLOOD SPECIMENOrdering Facility: [facility] Address: [address] [place] [address] Performed By: #### 5 8410-2 ####[facility] LABIA [id number] [place] [address] [place] Platelet mean volume (Bld) [Entitic vol] 12.4 fL Normal 9.0-12.7 [facility] Comment on above: Order Comment: Speci men Type: BLOOD SPECIMENOrdering Facility: [facility] Address: [address] [place] [address] Performed By: #### 5 8410-2 ####[facility] LABIA [id number] [place] [address] [place] Platelets (Bld) [#/Vol] 161 10*3/uL Normal 150-400 [facility] Comment on above: Order Comment: Speci men Type: BLOOD SPECIMENOrdering Facility: [facility] Address: [address] [place] [address] Performed By: #### 5 8410-2 ####[facility] LABCLIA [id number] [place] [address] [place] RBC (Bld) [#/Vol] 3.56 10*6/uL Low 3.90-5.20 [facility] Comment on above: Order Comment: Speci men Type: BLOOD SPECIMENOrdering Facility: [facility] Address: [address] [place] [address] Performed By: #### 5 8410-2 ####[facility] LABIA [id number] [place] [address] [place] WBC (Bld) [#/Vol] 2.94 10*3/uL Low 3.70-11.00 [facility] Comment on above: Order Comment: Speci men Type: BLOOD SPECIMENOrdering Facility: [facility] Address: [address] [place] [address] Performed By: #### 5 8410-2 ####[facility] LABCLIA [id number] [place] [address] [place] CNPNon 12-08-2022 CNPN Normal [facility] CONSULT PROGon 12-08-2022 CONSULT PROG Normal [facility] Comprehensive metabolic 2000 panelon 12-08-2022 Albumin [Mass/Vol] 3.1 g/dL Low 3.9-4.9 [place] Comment on above: Order Comment: Speci men Type: BLOOD SPECIMENOrdering Facility: [facility] Address: [address] [place] [address] Performed By: #### 2 4323-8, , 2776-02 ####[facility] LABCLIA [id number] [place] [address] [place] ALP [Catalytic activity/Vol] 57 U/L Normal 34-123 [facility] Comment on above: Order Comment: Speci men Type: BLOOD SPECIMENOrdering Facility: [facility] Address: [address] [place] [address] Performed By: #### 2 4323-8, , 2776-02 ####[facility] LABCLIA [id number] [place] [id number] [place] ALT [Catalytic activity/Vol] 16 U/L Normal 7-38 [facility] Comment on above: Order Comment: Speci men Type: BLOOD SPECIMENOrdering Facility: [facility] Address: [address] [place] [address] Performed By: #### 2 4323-8, , 2776- ####[facility] LABCLIA [id number] [place] [address] [place] Anion gap [Moles/Vol] 9 mmol/L Normal 9-18 [facility] Comment on above: Order Comment: Speci men Type: BLOOD SPECIMENOrdering Facility: [facility] Address: [address] [place] [address] Performed By: #### 2 4323-8, , 2776-02 ####[facility] LABCLIA [id number] [place] [address] [place] AST [Catalytic activity/Vol] 26 U/L Normal 13-35 [facility] Comment on above: Order Comment: Speci men Type: BLOOD SPECIMENOrdering Facility: [facility] Address: [address] [place] [address] Performed By: #### 2 4323-8, , 2776-02 ####[facility] LABCLIA [id number] [place] [address] [place] Bilirubin [Mass/Vol] 0.2 mg/dL Normal 0.2-1.3 [facility] Comment on above: Order Comment: Speci men Type: BLOOD SPECIMENOrdering Facility: [facility] Address: [address] [place] [address] Performed By: #### 2 4323-8, , 2776-02 ####[facility] LABCLIA [id number] [place] [address] [place] Calcium [Mass/Vol] 8.2 mg/dL Low 8.5-10.2 [place] Comment on above: Order Comment: Speci men Type: BLOOD SPECIMENOrdering Facility: [facility] Address: [address] [place] [address] Performed By: #### 2 4323-8, , 2776-02 ####[facility] LABCLIA [id number] [place] [id number] [place] Chloride [Moles/Vol] 109 mmol/L High 97-105 [facility] Comment on above: Order Comment: Speci men Type: BLOOD SPECIMENOrdering Facility: [facility] Address: [address] [place] [address] Performed By: #### 2 4323-8, 12292-8, 2776-02 ####[facility] LABCLIA [id number] [place] [address] [place] CO2 [Moles/Vol] 23 mmol/L Normal 22-30 [facility] Comment on above: Order Comment: Speci men Type: BLOOD SPECIMENOrdering Facility: [facility] Address: [address] [place] [address] Performed By: #### 2 4323-8, , 2776-02 ####[facility] LABCLIA [id number] [place] [address] [place] Creatinine [Mass/Vol] 0.73 mg/dL Normal 0.58-0.96 [facility] Comment on above: Order Comment: Speci men Type: BLOOD SPECIMENOrdering Facility: [facility] Address: [address] [place] [address] Performed By: #### 2 4323-8, , 2776-02 ####[facility] LABIA [id number] [place] [address] [place] Creatinine and Glomerular filtration rate.predicted panel (S/P/Bld) 112 mL/min/1.73m??? Normal >=60 [facility] Comment on above: Order Comment: Speci men Type: BLOOD SPECIMENOrdering Facility: [facility] Address: [address] [place] [address] Result Comment: Jessica mated Glomerular Filtration Rate [...] ####[facility] LABCLIA [id number] [address] [address] [place] Glucose [Mass/Vol] 119 mg/dL High 74-99 [place] Comment on above: Order Comment: Speci men Type: BLOOD SPECIMENOrdering Facility: [facility] Address: [address] [place] [address] Result Comment: The [place] [employer] (ADA) provides guidance for cutoff [...] Standards of Medical Care in Diabetes 2016, [place] [employer]. Diabetes Care. 2016.39(Suppl 1). Performed By: #### 2 4323-8, , 2776-02 ####[facility] LABCLIA [id number] [place] [address] [place] Potassium [Moles/Vol] 3.5 mmol/L Low 3.7-5.1 [facility] Comment on above: Order Comment: Lyssai men Type: BLOOD SPECIMENOrdering Facility: [facility] Address: [address] [place] [address] Performed By: #### 2 4323-8, , 2776-02 ####[facility] LABCLIA [id number] [place] [address] [place] Protein [Mass/Vol] 5.2 g/dL Low 6.3-8.0 [place] Comment on above: Order Comment: Speci men Type: BLOOD SPECIMENOrdering Facility: [facility] Address: [address] [place] [address] Performed By: #### 2 4323-8, , 2776-02 ####[facility] LABCLIA [id number] [address] [address] [place] Sodium [Moles/Vol] 141 mmol/L Normal 136-144 [place] Comment on above: Order Comment: Speci men Type: BLOOD SPECIMENOrdering Facility: [facility] Address: [address] [place] [address] Performed By: #### 2 4323-8, , 2776-02 ####[facility] LABCLIA [id number] [place] [address] [place] Urea nitrogen [Mass/Vol] 10 mg/dL Normal 7-21 [facility] Comment on above: Order Comment: Speci men Type: BLOOD SPECIMENOrdering Facility: [facility] Address: [address] [place] [address] Performed By: #### 2 4323-8, , 2776-02 ####[facility] LABIA [id number] [place] [address] [place] Magnesium SerPl-mCncon 12-08 Magnesium [Mass/Vol] 2.1 mg/dL Normal 1.7-2.3 [facility] Comment on above: Order Comment: Speci men Type: BLOOD SPECIMENOrdering Facility: [facility] Address: [address] [place] [address] Performed By: #### 2 4323-8, , 2776-02 ####[facility] LABCLIA [id number] [place] [id number] [place] Phosphate SerPl-mCncon 12-08 Phosphate [Mass/Vol] 4.7 mg/dL Normal 2.7-4.8 [facility] Comment on above: Order Comment: Speci men Type: BLOOD SPECIMENOrdering Facility: [facility] Address: [address] [place] [address] Performed By: #### 2 4323-8, 08690-6, 2777-1 ####[facility] LABCLIA [id number] [place] [address] [place] CBC panel Auto (Bld)on 12-07 Erythrocyte distribution width (RBC) [Ratio] 13.2 % Normal 11.5-15.0 [facility] Comment on above: Order Comment: Speci men Type: BLOOD SPECIMENOrdering Facility: [facility] Address: [address] [place] [address] Performed By: #### 5 8410-2 ####[facility] LABIA [id number] [place] [address] [place] Hematocrit (Bld) [Volume fraction] 33.9 % Low 36.0-46.0 [facility] Comment on above: Order Comment: Speci men Type: BLOOD SPECIMENOrdering Facility: [facility] Address: [address] [place] [address] Performed By: #### 5 8410-2 ####[facility] LABIA [id number] [place] [address] [place] Hemoglobin (Bld) [Mass/Vol] 11.6 g/dL Normal 11.5-15.5 [facility] Comment on above: Order Comment: Speci men Type: BLOOD SPECIMENOrdering Facility: [facility] Address: [address] [place] [address] Performed By: #### 5 8410-2 ####[facility] LABIA [id number] [place] [address] [place] MCH (RBC) [Entitic mass] 30.9 pg Normal 26.0-34.0 [facility] Comment on above: Order Comment: Speci men Type: BLOOD SPECIMENOrdering Facility: [facility] Address: [address] [place] [address] Performed By: #### 5 8410-2 ####[facility] LABIA [id number] [place] [address] [place] MCHC (RBC) [Mass/Vol] 34.2 g/dL Normal 30.5-36.0 [facility] Comment on above: Order Comment: Speci men Type: BLOOD SPECIMENOrdering Facility: [facility] Address: [address] [place] [address] Performed By: #### 5 8410-2 ####[facility] LABIA [id number] [place] [address] [place] MCV (RBC) [Entitic vol] 90.4 fL Normal 80.0-100.0 [facility] Comment on above: Order Comment: Speci men Type: BLOOD SPECIMENOrdering Facility: [facility] Address: [address] [place] [address] Performed By: #### 5 8410-2 ####[facility] LABIA [id number] [place] [address] [place] Nucleated RBC (Bld) [#/Vol] 10*3/uL Normal <0.01 [facility] Comment on above: Order Comment: Speci men Type: BLOOD SPECIMENOrdering Facility: [facility] Address: [address] [place] [address] Performed By: #### 5 8410-2 ####[facility] LABIA [id number] [place] [address] [place] Platelet mean volume (Bld) [Entitic vol] 12.5 fL Normal 9.0-12.7 [facility] Comment on above: Order Comment: Speci men Type: BLOOD SPECIMENOrdering Facility: [facility] Address: [address] [place] [address] Performed By: #### 5 8410-2 ####[facility] LABIA [id number] [place] [id number] [place] Platelets (Bld) [#/Vol] 175 10*3/uL Normal 150-400 [facility] Comment on above: Order Comment: Speci men Type: BLOOD SPECIMENOrdering Facility: [facility] Address: [address] [place] [address] Performed By: #### 5 8410-2 ####[facility] LABCLIA [id number] [place] [address] [place] RBC (Bld) [#/Vol] 3.75 10*6/uL Low 3.90-5.20 [facility] Comment on above: Order Comment: Speci men Type: BLOOD SPECIMENOrdering Facility: [facility] Address: [address] [place] [address] Performed By: #### 5 8410-2 ####[facility] LABCLIA [id number] [place] [address] [place] WBC (Bld) [#/Vol] 2.61 10*3/uL Low 3.70-11.00 [facility] Comment on above: Order Comment: Speci men Type: BLOOD SPECIMENOrdering Facility: [facility] Address: [address] [place] [address] Performed By: #### 5 8410-2 ####[facility] LABCLIA [id number] [place] [address] [place] CONSULTon 12-07-2022 CONSULT Normal [facility] CONSULT PROGon 12-07-2022 CONSULT PROG Normal [facility] Comprehensive metabolic 2000 panelon 12-07-2022 Albumin [Mass/Vol] 3.4 g/dL Low 3.9-4.9 [place] Comment on above: Order Comment: Speci men Type: BLOOD SPECIMENOrdering Facility: [facility] Address: [address] [place] [address] Performed By: #### 2 4323-8 ####[facility] LABCLIA [id number] [place] [address] [place] ALP [Catalytic activity/Vol] 62 U/L Normal 34-123 [facility] Comment on above: Order Comment: Speci men Type: BLOOD SPECIMENOrdering Facility: [facility] Address: [address] [place] [address] Performed By: #### 2 4323-8 ####[facility] LABCLIA [id number] [place] [address] [place] ALT [Catalytic activity/Vol] 19 U/L Normal 7-38 [facility] Comment on above: Order Comment: Speci men Type: BLOOD SPECIMENOrdering Facility: [facility] Address: [address] [place] [address] Performed By: #### 2 4323-8 ####[facility] LABCLIA [id number] [place] [address] [place] Anion gap [Moles/Vol] 9 mmol/L Normal 9-18 [facility] Comment on above: Order Comment: Speci men Type: BLOOD SPECIMENOrdering Facility: [facility] Address: [address] [place] [address] Performed By: #### 2 4323-8 ####[facility] LABCLIA [id number] [place] [address] [place] AST [Catalytic activity/Vol] 31 U/L Normal 13-35 [facility] Comment on above: Order Comment: Speci men Type: BLOOD SPECIMENOrdering Facility: [facility] Address: [address] [place] [address] Performed By: #### 2 4323-8 ####[facility] LABCLIA [id number] [place] [address] [place] Bilirubin [Mass/Vol] 0.3 mg/dL Normal 0.2-1.3 [facility] Comment on above: Order Comment: Speci men Type: BLOOD SPECIMENOrdering Facility: [facility] Address: [address] [place] [address] Performed By: #### 2 4323-8 ####[facility] LABCLIA [id number] [facility] [place] [address] [place] Calcium [Mass/Vol] 8.6 mg/dL Normal 8.5-10.2 [place] Comment on above: Order Comment: Speci men Type: BLOOD SPECIMENOrdering Facility: [facility] Address: [address] [place] [address] Performed By: #### 2 4323-8 ####[facility] LABCLIA [id number] [place] [address] [place] Chloride [Moles/Vol] 108 mmol/L High 97-105 [facility] Comment on above: Order Comment: Speci men Type: BLOOD SPECIMENOrdering Facility: [facility] Address: [address] [place] [address] Performed By: #### 2 4323-8 ####[facility] LABCLIA [id number] [place] [address] [place] CO2 [Moles/Vol] 22 mmol/L Normal 22-30 [facility] Comment on above: Order Comment: Speci men Type: BLOOD SPECIMENOrdering Facility: [facility] Address: [address] [place] [address] Performed By: #### 2 4323-8 ####[facility] LABCLIA [id number] [place] [address] [place] Creatinine [Mass/Vol] 0.85 mg/dL Normal 0.58-0.96 [facility] Comment on above: Order Comment: Speci men Type: BLOOD SPECIMENOrdering Facility: [facility] Address: [address] [place] [address] Performed By: #### 2 4323-8 ####[facility] LABCLIA [id number] [place] [address] [place] Creatinine and Glomerular filtration rate.predicted panel (S/P/Bld) 93 mL/min/1.73m??? Normal >=60 [facility] Comment on above: Order Comment: Geraldo marrero Type: BLOOD SPECIMENOrdering Facility: [facility] Address: [address] [place] [address] Result Comment: Jessica mated Glomerular Filtration Rate [...] 4323-8 ####[facility] LABIA [id number] [place] [address] [place] Glucose [Mass/Vol] 80 mg/dL Normal 74-99 [place] Comment on above: Order Comment: Geraldo marrero Type: BLOOD SPECIMENOrdering Facility: [facility] Address: [address] [place] [address] Result Comment: The [place] [employer] (ADA) provides guidance for cutoff [...] Standards of Medical Care in Diabetes 2016, [place] [employer]. Diabetes Care. 2016.39(Suppl 1). Performed By: #### 2 4323-8 ####[facility] [id number] [place] [address] [place] Potassium [Moles/Vol] 3.7 mmol/L Normal 3.7-5.1 [facility] Comment on above: Order Comment: Geraldo marrero Type: BLOOD SPECIMENOrdering Facility: [facility] Address: [address] [place] [address] Performed By: #### 2 4323-8 ####[facility] LABCLIA [id number] [place] [address] [place] Protein [Mass/Vol] 5.5 g/dL Low 6.3-8.0 [place] Comment on above: Order Comment: Speci men Type: BLOOD SPECIMENOrdering Facility: [facility] Address: [address] [place] [address] Performed By: #### 2 4323-8 ####[facility] LABCLIA [id number] [place] [address] [place] Sodium [Moles/Vol] 139 mmol/L Normal 136-144 [place] Comment on above: Order Comment: Speci men Type: BLOOD SPECIMENOrdering Facility: [facility] Address: [address] [place] [address] Performed By: #### 2 4323-8 ####[facility] LABCLIA [id number] [place] [address] [place] Urea nitrogen [Mass/Vol] 12 mg/dL Normal 7-21 [facility] Comment on above: Order Comment: Speci men Type: BLOOD SPECIMENOrdering Facility: [facility] Address: [address] [place] [address] Performed By: #### 2 4323-8 ####[facility] LABCLIA [id number] [place] [address] [place] NURSING PROGon 12-07-2022 NURSING PROG Normal [facility] XR CHEST 1V PORT POST PICC - NBon 12-07-2022 XR CHEST 1V PORT POST PICC -NB Normal [facility] CASE MGT INIT ASSESon 2022 CASE MGT INIT ASSES Normal [facility] CBC W Auto Differential pane l (Bld)on 12-06-2022 Basophils (Bld) [#/Vol] 10*3/uL Normal <0.11 [facility] Comment on above: Order Comment: Speci men Type: BLOOD SPECIMENOrdering Facility: [facility] Address: [address] [place] [address] Performed By: #### 5 7021-8 ####[facility] LABCLIA [id number] [place] [address] [place] Basophils/100 WBC (Bld) 0.7 % Normal [facility] Comment on above: Order Comment: Speci men Type: BLOOD SPECIMENOrdering Facility: [facility] Address: [address] [place] [address] Performed By: #### 5 7021-8 ####[facility] LABCLIA [id number] [place] [address] [place] Differential cell count method Nom (Bld) Auto Normal [facility] Comment on above: Order Comment: Speci men Type: BLOOD SPECIMENOrdering Facility: [facility] Address: [address] [place] [address] Performed By: #### 5 7021-8 ####[facility] LABCLIA [id number] [place] [address] [place] Eosinophils (Bld) [#/Vol] 0.09 10*3/uL Normal <0.46 [facility] Comment on above: Order Comment: Speci men Type: BLOOD SPECIMENOrdering Facility: [facility] Address: [address] [place] [address] Performed By: #### 5 7021-8 ####[facility] LABCLIA [id number] [place] [address] [place] Eosinophils/100 WBC (Bld) 2.9 % Normal [facility] Comment on above: Order Comment: Speci men Type: BLOOD SPECIMENOrdering Facility: [facility] Address: [address] [place] [address] Performed By: #### 5 7021-8 ####[facility] LABCLIA [id number] [place] [address] [place] Erythrocyte distribution width (RBC) [Ratio] 13.2 % Normal 11.5-15.0 [facility] Comment on above: Order Comment: Speci men Type: BLOOD SPECIMENOrdering Facility: [facility] Address: [address] [place] [address] Performed By: #### 5 7021-8 ####[facility] LABCLIA [id number] [place] [address] [place] Hematocrit (Bld) [Volume fraction] 33.7 % Low 36.0-46.0 [facility] Comment on above: Order Comment: Speci men Type: BLOOD SPECIMENOrdering Facility: [facility] Address: [address] [place] [address] Performed By: #### 5 7021-8 ####[facility] LABCLIA [id number] [place] [address] [place] Hemoglobin (Bld) [Mass/Vol] 11.6 g/dL Normal 11.5-15.5 [facility] Comment on above: Order Comment: Speci men Type: BLOOD SPECIMENOrdering Facility: [facility] Address: [address] [place] [address] Performed By: #### 5 7021-8 ####[facility] LABCLIA [id number] [place] [address] [place] Immature granulocytes (Bld) [#/Vol] 10*3/uL Normal <0.10 [facility] Comment on above: Order Comment: Speci men Type: BLOOD SPECIMENOrdering Facility: [facility] Address: [address] [place] [address] Performed By: #### 5 7021-8 ####[facility] LABCLIA [id number] [place] [address] [place] Immature granulocytes/100 WBC (Bld) 0.3 % Normal [facility] Comment on above: Order Comment: Speci men Type: BLOOD SPECIMENOrdering Facility: [facility] Address: [address] [place] [address] Performed By: #### 5 7021-8 ####[facility] LABCLIA [id number] [place] [address] [place] Lymphocytes (Bld) [#/Vol] 1.31 10*3/uL Normal 1.00-4.00 [facility] Comment on above: Order Comment: Speci men Type: BLOOD SPECIMENOrdering Facility: [facility] Address: [address] [place] [address] Performed By: #### 5 7021-8 ####[facility] LABCLIA [id number] [place] [address] [place] Lymphocytes/100 WBC (Bld) 42.8 % Normal [facility] Comment on above: Order Comment: Speci men Type: BLOOD SPECIMENOrdering Facility: [facility] Address: [address] [place] [address] Performed By: #### 5 7021-8 ####[facility] LABCLIA [id number] [place] [address] [place] MCH (RBC) [Entitic mass] 30.8 pg Normal 26.0-34.0 [facility] Comment on above: Order Comment: Speci men Type: BLOOD SPECIMENOrdering Facility: [facility] Address: [address] [place] [address] Performed By: #### 5 7021-8 ####[facility] LABCLIA [id number] [place] [address] [place] MCHC (RBC) [Mass/Vol] 34.4 g/dL Normal 30.5-36.0 [facility] Comment on above: Order Comment: Speci men Type: BLOOD SPECIMENOrdering Facility: [facility] Address: [address] [place] [address] Performed By: #### 5 7021-8 ####[facility] LABCLIA [id number] [place] [address] [place] MCV (RBC) [Entitic vol] 89.4 fL Normal 80.0-100.0 [facility] Comment on above: Order Comment: Speci men Type: BLOOD SPECIMENOrdering Facility: [facility] Address: [address] [place] [address] Performed By: #### 5 7021-8 ####[facility] LABCLIA [id number] [place] [address] [place] Monocytes (Bld) [#/Vol] 0.24 10*3/uL Normal <0.87 [facility] Comment on above: Order Comment: Speci men Type: BLOOD SPECIMENOrdering Facility: [facility] Address: [address] [place] [address] Performed By: #### 5 7021-8 ####[facility] LABCLIA [id number] [place] [address] [place] Monocytes/100 WBC (Bld) 7.8 % Normal [facility] Comment on above: Order Comment: Speci men Type: BLOOD SPECIMENOrdering Facility: [facility] Address: [address] [place] [address] Performed By: #### 5 7021-8 ####[facility] LABCLIA [id number] [place] [address] [place] Neutrophils (Bld) [#/Vol] 1.39 10*3/uL Low 1.45-7.50 [facility] Comment on above: Order Comment: Speci men Type: BLOOD SPECIMENOrdering Facility: [facility] Address: [address] [place] [address] Performed By: #### 5 7021-8 ####[facility] LABCLIA [id number] [place] [address] [place] Neutrophils/100 WBC (Bld) 45.5 % Normal [facility] Comment on above: Order Comment: Speci men Type: BLOOD SPECIMENOrdering Facility: [facility] Address: [address] [place] [address] Performed By: #### 5 7021-8 ####[facility] LABCLIA [id number] [place] [address] [place] Nucleated RBC (Bld) [#/Vol] 10*3/uL Normal <0.01 [facility] Comment on above: Order Comment: Speci men Type: BLOOD SPECIMENOrdering Facility: [facility] Address: [address] [place] [address] Performed By: #### 5 7021-8 ####[facility] LABIA [id number] [place] [address] [place] Nucleated RBC/100 WBC (Bld) [Ratio] 0.0 /100 WBC Normal [facility] Comment on above: Order Comment: Speci men Type: BLOOD SPECIMENOrdering Facility: [facility] Address: [address] [place] [address] Performed By: #### 5 7021-8 ####[facility] LABCLIA [id number] [place] [address] [place] Platelet mean volume (Bld) [Entitic vol] 11.9 fL Normal 9.0-12.7 [facility] Comment on above: Order Comment: Speci men Type: BLOOD SPECIMENOrdering Facility: [facility] Address: [address] [place] [address] Performed By: #### 5 7021-8 ####[facility] LABCLIA [id number] [place] [address] [place] Platelets (Bld) [#/Vol] 163 10*3/uL Normal 150-400 [facility] Comment on above: Order Comment: Speci men Type: BLOOD SPECIMENOrdering Facility: [facility] Address: [address] [place] [address] Performed By: #### 5 7021-8 ####[facility] LABCLIA [id number] [address] [address] [place] RBC (Bld) [#/Vol] 3.77 10*6/uL Low 3.90-5.20 [facility] Comment on above: Order Comment: Speci men Type: BLOOD SPECIMENOrdering Facility: [facility] Address: [address] [place] [address] Performed By: #### 5 7021-8 ####[facility] [id number] [place] [address] [place] WBC (Bld) [#/Vol] 3.06 10*3/uL Low 3.70-11.00 [facility] Comment on above: Order Comment: Speci men Type: BLOOD SPECIMENOrdering Facility: [facility] Address: [address] [place] [address] Performed By: #### 5 7021-8 ####[facility] [id number] [place] [id number] [place] CTA ABD/PELV W IVCONon 12-06 CTA ABD/PELV W IVCON Normal [facility] Comprehensive metabolic 2000 panelon 12-06-2022 Albumin [Mass/Vol] 3.6 g/dL Low 3.9-4.9 [place] Comment on above: Order Comment: Speci men Type: BLOOD SPECIMENOrdering Facility: [facility] Address: [address] [place], [place] [address] Performed By: #### 3 040-3, 2777-1, 77039-0, 17503-0 ####[facility] [id number] [place] [id number] [place] ALP [Catalytic activity/Vol] 61 U/L Normal 34-123 [facility] Comment on above: Order Comment: Speci men Type: BLOOD SPECIMENOrdering Facility: [facility] Address: [address] [place] [address] Performed By: #### 3 040-3, 2776-02, , ####[facility] LABIA [id number] [address] [address] [place] ALT [Catalytic activity/Vol] 16 U/L Normal 7-38 [facility] Comment on above: Order Comment: Speci men Type: BLOOD SPECIMENOrdering Facility: [facility] Address: [address] [place] [address] Performed By: #### 3 040-3, 2776-02, , ####[facility] [id number] [place] [address] [place] Anion gap [Moles/Vol] 10 mmol/L Normal 9-18 [facility] Comment on above: Order Comment: Speci men Type: BLOOD SPECIMENOrdering Facility: [facility] Address: [address] [place] [address] Performed By: #### 3 040-3, 2776-02, , ####[facility] [id number] [place] [address] [place] AST [Catalytic activity/Vol] 29 U/L Normal 13-35 [facility] Comment on above: Order Comment: Speci men Type: BLOOD SPECIMENOrdering Facility: [facility] Address: [address] [place] [address] Performed By: #### 3 040-3, 2776-02, , ####[facility] [id number] [address] [address] [place] Bilirubin [Mass/Vol] 0.2 mg/dL Normal 0.2-1.3 [facility] Comment on above: Order Comment: Speci men Type: BLOOD SPECIMENOrdering Facility: [facility] Address: [address] [place] [address] Performed By: #### 3 040-3, 2776-02, , 04848-5 ####[facility] LABCLIA [id number] [address] [address] [place] Calcium [Mass/Vol] 8.2 mg/dL Low 8.5-10.2 [place] Comment on above: Order Comment: Speci men Type: BLOOD SPECIMENOrdering Facility: [facility] Address: [address] [place] [address] Performed By: #### 3 040-3, 2776-02, , ####[facility] LABCLIA [id number] [place] [address] [place] Chloride [Moles/Vol] 109 mmol/L High 97-105 [facility] Comment on above: Order Comment: Speci men Type: BLOOD SPECIMENOrdering Facility: [facility] Address: [address] [place] [address] Performed By: #### 3 040-3, 2776-02, , ####[facility] LABCLIA [id number] [place] [address] [place] CO2 [Moles/Vol] 21 mmol/L Low 22-30 [facility] Comment on above: Order Comment: Speci men Type: BLOOD SPECIMENOrdering Facility: [facility] Address: [address] [place] [address] Performed By: #### 3 040-3, 2776-02, , ####[facility] LABCLIA [id number] [address] [address] [place] Creatinine [Mass/Vol] 0.66 mg/dL Normal 0.58-0.96 [facility] Comment on above: Order Comment: Speci men Type: BLOOD SPECIMENOrdering Facility: [facility] Address: [address] [place] [address] Performed By: #### 3 040-3, 27708-15, , ####[facility] LABCLIA [id number] [place] [address] [place] Creatinine and Glomerular filtration rate.predicted panel (S/P/Bld) 119 mL/min/1.73m??? Normal >=60 [facility] Comment on above: Order Comment: Geraldo marrero Type: BLOOD SPECIMENOrdering Facility: [facility] Address: [address] [place] [address] Result Comment: Jessica mated Glomerular Filtration Rate [...] actual GFR. Performed By: #### 3 040-3, 2777-1, 14765-8, 19129-0 ####[facility] [id number] [place] [address] [place] Glucose [Mass/Vol] 83 mg/dL Normal 74-99 [place] Comment on above: Order Comment: Geraldo marrero Type: BLOOD SPECIMENOrdering Facility: [facility] Address: [address] [place] [address] Result Comment: The [place] [employer] (ADA) provides guidance for cutoff [...] Standards of Medical Care in Diabetes 2016, [place] [employer]. Diabetes Care. 2016.39(Suppl 1). Performed By: #### 3 040-3, 2777-1, 59291-1, 53775-2 ####[facility] LABIA [id number] [address] [address] [place] Potassium [Moles/Vol] 3.7 mmol/L Normal 3.7-5.1 [facility] Comment on above: Order Comment: Speci men Type: BLOOD SPECIMENOrdering Facility: [facility] Address: [address] [place] [address] Performed By: #### 3 040-3, 27708-15, , ####[facility] LABCLIA [id number] [address] [address] [place] Protein [Mass/Vol] 5.9 g/dL Low 6.3-8.0 [place] Comment on above: Order Comment: Speci men Type: BLOOD SPECIMENOrdering Facility: [facility] Address: [address] [place] [address] Performed By: #### 3 040-3, 2776-02, , ####[facility] LABIA [id number] [place] [address] [place] Sodium [Moles/Vol] 140 mmol/L Normal 136-144 [place] Comment on above: Order Comment: Speci men Type: BLOOD SPECIMENOrdering Facility: [facility] Address: [address] [place] [address] Performed By: #### 3 040-3, 2776-02, , ####[facility] LABCLIA [id number] [place] [id number] [place] Urea nitrogen [Mass/Vol] 13 mg/dL Normal 7-21 [facility] Comment on above: Order Comment: Speci men Type: BLOOD SPECIMENOrdering Facility: [facility] Address: [address] [place] [address] Performed By: #### 3 040-3, 2776-02, , ####[facility] LABCLIA [id number] [address] [address] [place] ED NOTEon 12-06-2022 ED NOTE HNO ID: [id number] Author: Michelle Regalado RN Service: Emergency Medicine Author Type: Registered Nurse Type: ED Notes Filed: 12/06/2022 10:09 PM Note Text: Report called to DEE Argueta. Normal [facility] ED NOTE HNO ID: [id number] Author: Maia Mosher RN Service: Emergency Medicine Author Type: Registered Nurse Type: ED Notes Filed: 12/06/2022 3:19 PM Note Text: Nurse handoff given to DEE Carreon Normal [facility] ED PROV NOTEon 12-06-2022 ED PROV NOTE Normal [facility] HISTORY PHYSICALon HISTORY PHYSICAL Normal [facility] Lipase SerPl-cCncon 12-07-19 Lipase [Catalytic activity/Vol] 40 U/L Normal 16-61 [facility] Comment on above: Order Comment: Speci men Type: BLOOD SPECIMENOrdering Facility: [facility] Address: [address] [place] [id number] Performed By: #### 3 040-3, 2777-1, , ####[facility] LABCLIA [id number] [address] [address] [place] Magnesium SerPl-mCncon 12-06 Magnesium [Mass/Vol] 2.0 mg/dL Normal 1.7-2.3 [facility] Comment on above: Order Comment: Speci men Type: BLOOD SPECIMENOrdering Facility: [facility] Address: [address] [place] [address] Performed By: #### 3 040-3, 2777-1, , 42898-0 ####[facility] LABCLIA [id number] [address] [address] [place] Phosphate SerPl-mCncon 12-06 Phosphate [Mass/Vol] 2.7 mg/dL Normal 2.7-4.8 [facility] Comment on above: Order Comment: Speci men Type: BLOOD SPECIMENOrdering Facility: [facility] Address: [address] [place] [address] Performed By: #### 3 040-3, 2777-1, 09764-3, 60678-5 ####[facility] LABCLIA [id number] [place] [address] [place] Urinalysis complete panel (U )on 12-06-2022 Bacteria LM.HPF (Urine sed) [#/Area] Negative Normal Negative [facility] Comment on above: Order Comment: Speci men Type: URINE SPECIMENOrdering Facility: [facility] Address: [address] [place] [address] Performed By: #### 2 4356-8 ####[facility] LABCLIA [id number] [place] [address] [place] Bilirubin Ql (U) Negative Normal Negative [facility] Comment on above: Order Comment: Speci men Type: URINE SPECIMENOrdering Facility: [facility] Address: [address] [place] [address] Performed By: #### 2 4356-8 ####[facility] LABCLIA [id number] [place] [address] [place] Clarity (Unsp spec) Clear Normal Clear [facility] Comment on above: Order Comment: Speci men Type: URINE SPECIMENOrdering Facility: [facility] Address: [address] [place] [address] Performed By: #### 2 4356-8 ####[facility] LABCLIA [id number] [place] [address] [place] Color (U) Yellow Normal Yellow [facility] Comment on above: Order Comment: Speci men Type: URINE SPECIMENOrdering Facility: [facility] Address: [address] [place] [address] Performed By: #### 2 4356-8 ####[facility] LABCLIA [id number] [address] [place] Epithelial cells LM.HPF (Urine sed) [#/Area] Moderate Normal [facility] Comment on above: Order Comment: Speci men Type: URINE SPECIMENOrdering Facility: [facility] Address: [address] [place] [address] Performed By: #### 2 4356-8 ####[facility] LABCLIA [id number] [place] [address] [place] Glucose Test strip (U) [Mass/Vol] Negative Normal Negative [facility] Comment on above: Order Comment: Speci men Type: URINE SPECIMENOrdering Facility: [facility] Address: [address] [place] [address] Performed By: #### 2 4356-8 ####[facility] LABCLIA [id number] [place] [address] [place] Hemoglobin Ql (U) Negative Normal Negative [facility] Comment on above: Order Comment: Speci men Type: URINE SPECIMENOrdering Facility: [facility] Address: [address] [place] [address] Performed By: #### 2 4356-8 ####[facility] LABCLIA [id number] [place] [address] [place] Hyaline casts (Urine sed) [#/Area] 0 /[LPF] Normal 0 /LPF [facility] Comment on above: Order Comment: Speci men Type: URINE SPECIMENOrdering Facility: [facility] Address: [address] [place] [address] Performed By: #### 2 4356-8 ####[facility] LABCLIA [id number] [place] [address] [place] Ketones Ql (U) Negative Normal Negative [facility] Comment on above: Order Comment: Speci men Type: URINE SPECIMENOrdering Facility: [facility] Address: [address] [place] [address] Performed By: #### 2 4356-8 ####[facility] LABCLIA [id number] [place] [address] [place] Leukocyte esterase Test strip Ql (U) Negative Normal Negative [facility] Comment on above: Order Comment: Speci men Type: URINE SPECIMENOrdering Facility: [facility] Address: [address] [place] [address] Performed By: #### 2 4356-8 ####[facility] LABCLIA [id number] [place] [address] [place] Nitrite Ql (U) Negative Normal Negative [facility] Comment on above: Order Comment: Speci men Type: URINE SPECIMENOrdering Facility: [facility] Address: [address] [place] [address] Performed By: #### 2 4356-8 ####[facility] LABIA [id number] [place] [address] [place] pH (U) 7.0 [pH] Normal <8.5 [facility] Comment on above: Order Comment: Speci men Type: URINE SPECIMENOrdering Facility: [facility] Address: [address] [place] [address] Performed By: #### 2 4356-8 ####[facility] LABIA [id number] [place] [address] [place] Protein (U) [Mass/Vol] Negative Normal Negative [facility] Comment on above: Order Comment: Speci men Type: URINE SPECIMENOrdering Facility: [facility] Address: [address] [place] [address] Performed By: #### 2 4356-8 ####[facility] LABIA [id number] [place] [address] [place] RBC LM.HPF (Urine sed) [#/Area] 0-2 /HPF Normal 0-2 /HPF [facility] Comment on above: Order Comment: Speci men Type: URINE SPECIMENOrdering Facility: [facility] Address: [address] [place] [address] Performed By: #### 2 4356-8 ####[facility] LABIA [id number] [place] [address] [place] Specific gravity (U) [Rel density] 1.014 Normal 1.005-1.030 [facility] Comment on above: Order Comment: Speci men Type: URINE SPECIMENOrdering Facility: [facility] Address: [address] [place] [address] Performed By: #### 2 4356-8 ####[facility] LABIA [id number] [place] [address] [place] Urobilinogen Ql (U) 0.2 EU/dL Normal 0.2-1.0 EU/dL [facility] Comment on above: Order Comment: Speci men Type: URINE SPECIMENOrdering Facility: [facility] Address: [address] [place] [address] Performed By: #### 2 4356-8 ####[facility] [id number] [place] [address] [place] WBC LM.HPF (Urine sed) [#/Area] 0-5 /HPF Normal 0-5 /HPF [facility] Comment on above: Order Comment: Speci men Type: URINE SPECIMENOrdering Facility: [facility] Address: [address] [place] [address] Performed By: #### 2 4356-8 ####[facility] LABIA [id number] [place] [id number] [place] CNOVon 12-04-2022 CNOV Normal [facility] HISTORY PHYSICALon 3 HISTORY PHYSICAL Normal [facility] Basic Metabolic Panelon 11-15 Anion gap [Moles/Vol] 10 mmol/L Normal - [facility] Comment on above: Performed By: #### L IPAS #### [facility] [address] [place] [address] Calcium [Mass/Vol] 8.4 mg/dL Low 8.5-9.9 [facility] Comment on above: Performed By: #### L IPAS #### [facility] [address] [place] [address] Chloride [Moles/Vol] 108 mmol/L Critically high 95-107 [facility] Comment on above: Performed By: #### L IPAS #### [facility] [address] [place] [address] CO2 [Moles/Vol] 23 mmol/L Normal 20-31 [facility] Comment on above: Performed By: #### L IPAS #### [facility] [address] [place] [address] Creatinine [Mass/Vol] 0.64 mg/dL Normal 0.50-0.90 [facility] Comment on above: Performed By: #### L IPAS #### [facility] [address] [place] [address] GFR >60.0 Normal >60 [facility] Comment on above: Result Comment: Adán atric [...] secretion. Performed By: #### L IPAS #### [facility] [address] [place] [address] Glucose [Mass/Vol] 86 mg/dL Normal 70-99 [facility] Comment on above: Performed By: #### L IPAS #### [facility] [address] [place] [address] Potassium [Moles/Vol] 3.9 mmol/L Normal 3.4-4.9 [facility] Comment on above: Performed By: #### L IPAS #### [facility] [address] [place] [address] Sodium [Moles/Vol] 141 mmol/L Normal 135-144 [facility] Comment on above: Performed By: #### L IPAS #### [facility] [address] [place] [address] Urea nitrogen [Mass/Vol] 14 mg/dL Normal 6-20 [facility] Comment on above: Performed By: #### L IPAS #### [facility] [address] [place] [address] CBC With Platelet and Differ entialon 12-03-2022 Basophils (Bld) [#/Vol] 0.0 10*3/uL Normal 0.0-0.2 [facility] Comment on above: Performed By: #### C BCWD #### [facility] [address] [place] [address] Basophils/100 WBC (Bld) 0.9 % Normal [facility] Comment on above: Performed By: #### C BCWD #### [facility] [address] [place] [address] Eosinophils (Bld) [#/Vol] 0.2 10*3/uL Normal 0.0-0.7 [facility] Comment on above: Performed By: #### C BCWD #### [facility] [address] [place] [address] Eosinophils/100 WBC (Bld) 5.2 % Normal [facility] Comment on above: Performed By: #### C BCWD #### [facility] [address] [place] [address] Erythrocyte distribution width (RBC) [Ratio] 13.2 % Normal 11.5-14.5 [facility] Comment on above: Performed By: #### C BCWD #### [facility] [address] [place] [address] Hematocrit (Bld) [Volume fraction] 35.9 % Low 37.0-47.0 [facility] Comment on above: Performed By: #### C BCWD #### [facility] [address] [place] [address] Hemoglobin (Bld) [Mass/Vol] 12.3 g/dL Normal 12.0-16.0 [facility] Comment on above: Performed By: #### C BCWD #### [facility] [address] [place] [address] Lymphocytes (Bld) [#/Vol] 1.3 10*3/uL Normal 1.0-4.8 [facility] Comment on above: Performed By: #### C BCWD #### [facility] [address] [place] [address] Lymphocytes/100 WBC (Bld) 38.2 % Normal [facility] Comment on above: Performed By: #### C BCWD #### [facility] [address] [place] [address] MCH (RBC) [Entitic mass] 30.8 pg Normal 27.0-31.3 [facility] Comment on above: Performed By: #### C BCWD #### [facility] [address] [place] [address] MCHC 34.3 % Normal 33.0-37.0 [facility] Comment on above: Performed By: #### C BCWD #### [facility] [address] [place] [address] MCV (RBC) [Entitic vol] 89.8 fL Normal 79.4-94.8 [facility] Comment on above: Performed By: #### C BCWD #### [facility] [address] [place] [address] Monocytes (Bld) [#/Vol] 0.4 10*3/uL Normal 0.2-0.8 [facility] Comment on above: Performed By: #### C BCWD #### [facility] [address] [place] [address] Monocytes/100 WBC (Bld) 10.9 % Normal [facility] Comment on above: Performed By: #### C BCWD #### [facility] [address] [place] [address] Neutrophils (Bld) [#/Vol] 1.5 10*3/uL Normal 1.4-6.5 [facility] Comment on above: Performed By: #### C BCWD #### [facility] [address] [place] [address] Neutrophils/100 WBC (Bld) 44.5 % Normal [facility] Comment on above: Performed By: #### C BCWD #### [facility] [address] [place] [address] Platelets (Bld) [#/Vol] 204 10*3/uL Normal 130-400 [facility] Comment on above: Performed By: #### C BCWD #### [facility] [address] [place] [address] RBC (Bld) [#/Vol] 4.00 10*6/uL Low 4.20-5.40 [facility] Comment on above: Performed By: #### C BCWD #### [facility] [address] [place] [address] WBC (Bld) [#/Vol] 3.3 10*3/uL Low 4.8-10.8 [facility] Comment on above: Performed By: #### C BCWD #### [facility] [address] [place] [address] Basophils (Bld) [#/Vol] 0.0 10*3/uL Normal 0.0-0.2 [facility] Comment on above: Performed By: #### P GLU #### [facility] [address] [place] [address] Basophils/100 WBC (Bld) 0.7 % Normal [facility] Comment on above: Performed By: #### P GLU #### [facility] [address] [place] [address] Eosinophils (Bld) [#/Vol] 0.2 10*3/uL Normal 0.0-0.7 [facility] Comment on above: Performed By: #### P GLU #### [facility] [address] [place] [address] Eosinophils/100 WBC (Bld) 5.9 % Normal [facility] Comment on above: Performed By: #### P GLU #### [facility] [address] [place] [address] Erythrocyte distribution width (RBC) [Ratio] 13.5 % Normal 11.5-14.5 [facility] Comment on above: Performed By: #### P GLU #### [facility] [address] [place] [address] Hematocrit (Bld) [Volume fraction] 33.2 % Low 37.0-47.0 [facility] Comment on above: Performed By: #### P GLU #### [facility] [address] [place] [address] Hemoglobin (Bld) [Mass/Vol] 11.8 g/dL Low 12.0-16.0 [facility] Comment on above: Performed By: #### P GLU #### [facility] [address] [place] [address] Lymphocytes (Bld) [#/Vol] 1.1 10*3/uL Normal 1.0-4.8 [facility] Comment on above: Performed By: #### P GLU #### [facility] [address] [place] [address] Lymphocytes/100 WBC (Bld) 39.5 % Normal [facility] Comment on above: Performed By: #### P GLU #### [facility] [address] [place] [address] MCH (RBC) [Entitic mass] 34.0 pg Critically high 27.0-31.3 [facility] Comment on above: Performed By: #### P GLU #### [facility] [address] [place] [address] MCHC 35.5 % Normal 33.0-37.0 [facility] Comment on above: Performed By: #### P GLU #### [facility] [address] [place] [address] MCV (RBC) [Entitic vol] 95.7 fL Critically high 79.4-94.8 [facility] Comment on above: Performed By: #### P GLU #### [facility] [address] [place] [address] Monocytes (Bld) [#/Vol] 0.3 10*3/uL Normal 0.2-0.8 [facility] Comment on above: Performed By: #### P GLU #### [facility] [address] [place] [address] Monocytes/100 WBC (Bld) 9.1 % Normal [facility] Comment on above: Performed By: #### P GLU #### [facility] [address] [place] [address] Neutrophils (Bld) [#/Vol] 1.3 10*3/uL Low 1.4-6.5 [facility] Comment on above: Performed By: #### P GLU #### [facility] [address] [place] [address] Neutrophils/100 WBC (Bld) 44.5 % Normal [facility] Comment on above: Performed By: #### P GLU #### [facility] [address] [place] [address] Platelets (Bld) [#/Vol] 186 10*3/uL Normal 130-400 [facility] Comment on above: Performed By: #### P GLU #### [facility] [address] [place] [address] RBC (Bld) [#/Vol] 3.47 10*6/uL Low 4.20-5.40 [facility] Comment on above: Performed By: #### P GLU #### [facility] [address] [place] [address] WBC (Bld) [#/Vol] 2.9 10*3/uL Low 4.8-10.8 [facility] Comment on above: Performed By: #### P GLU #### [facility] [address] [place] [address] CNPNon 12-03-2022 CNPN Normal [facility] Magnesiumon 12-03-2022 Magnesium [Mass/Vol] 1.8 mg/dL Normal 1.7-2.4 [facility] Comment on above: Performed By: #### L IPAS #### [facility] [address] [place] [address] POCT Glucoseon 12-03-2022 Glucose [Mass/Vol] 90 mg/dL Normal 70-99 [facility] Comment on above: Performed By: #### P GLU #### [facility] [address] [place] [address] POC Performed on ACCU-CHEK Normal [facility] Comment on above: Performed By: #### P GLU #### [facility] [address] [place] [address] Glucose [Mass/Vol] 101 mg/dL Critically high 70-[address] [facility] Comment on above: Performed By: #### L IPAS #### [facility] [address] [place] [address] POC Performed on ACCU-CHEK Normal [facility] Comment on above: Performed By: #### L IPAS #### [facility] [address] [place] [address] Phosphoruson 12-03-2022 Phosphate [Mass/Vol] 3.6 mg/dL Normal 2.3-4.8 [facility] Comment on above: Performed By: #### L IPAS #### [facility] [address] [place] [address] Basic Metabolic Panelon 10-1 Anion gap [Moles/Vol] 6 mmol/L Low 9-15 [facility] Comment on above: Performed By: #### C BCWD #### [facility] [address] [place] [address] Calcium [Mass/Vol] 8.4 mg/dL Low 8.5-9.9 [facility] Comment on above: Performed By: #### C BCWD #### [facility] [address] [place] [address] Chloride [Moles/Vol] 107 mmol/L Normal 95-107 [facility] Comment on above: Performed By: #### C BCWD #### [facility] [address] [place] [address] CO2 [Moles/Vol] 25 mmol/L Normal 20-31 [facility] Comment on above: Performed By: #### C BCWD #### [facility] [address] [place] [address] Creatinine [Mass/Vol] 0.57 mg/dL Normal 0.50-0.90 [facility] Comment on above: Performed By: #### C BCWD #### [facility] [address] [place] [address] GFR >60.0 Normal >60 [facility] Comment on above: Result Comment: Pedi atric [...] secretion. Performed By: #### C BCWD #### [facility] [address] [place] [address] Glucose [Mass/Vol] 104 mg/dL Critically high 70-[address] [facility] Comment on above: Performed By: #### C BCWD #### [facility] [address] [place] [address] Potassium [Moles/Vol] 4.0 mmol/L Normal 3.4-4.9 [facility] Comment on above: Performed By: #### C BCWD #### [facility] [address] [place] [address] Sodium [Moles/Vol] 138 mmol/L Normal 135-144 [facility] Comment on above: Performed By: #### C BCWD #### [facility] [address] [place] [address] Urea nitrogen [Mass/Vol] 12 mg/dL Normal 6-20 [facility] Comment on above: Performed By: #### C BCWD #### [facility] [address] [place] [address] CBC With Platelet and Differ entialon 12-02-2022 Anisocytosis Ql (Bld) 1+ Normal [facility] Comment on above: Performed By: #### C BCWD #### [facility] [address] [place] [address] Basophils (Bld) [#/Vol] 0.0 10*3/uL Normal 0.0-0.2 [facility] Comment on above: Performed By: #### C BCWD #### [facility] [address] [place] [address] Basophils/100 WBC (Bld) 1.0 % Normal [facility] Comment on above: Performed By: #### C BCWD #### [facility] [address] [place] [address] Eosinophils (Bld) [#/Vol] 0.2 10*3/uL Normal 0.0-0.7 [facility] Comment on above: Performed By: #### C BCWD #### [facility] [address] [place] [address] Eosinophils/100 WBC (Bld) 9.0 % Normal [facility] Comment on above: Performed By: #### C BCWD #### [facility] [address] [place] [address] Lymphocytes (Bld) [#/Vol] 0.9 10*3/uL Low 1.0-4.8 [facility] Comment on above: Performed By: #### C BCWD #### [facility] [address] [place] [address] Lymphocytes/100 WBC (Bld) 35.0 % Normal [facility] Comment on above: Performed By: #### C BCWD #### [facility] [address] [place] [address] Monocytes (Bld) [#/Vol] 0.1 10*3/uL Low 0.2-0.8 [facility] Comment on above: Performed By: #### C BCWD #### [facility] [address] [place] [address] Monocytes/100 WBC (Bld) 4.6 % Normal [facility] Comment on above: Performed By: #### C BCWD #### [facility] [address] [place] [address] Neutrophils (Bld) [#/Vol] 1.4 10*3/uL Normal 1.4-6.5 [facility] Comment on above: Performed By: #### C BCWD #### [facility] [address] [place] [address] Neutrophils/100 WBC (Bld) 50.0 % Normal [facility] Comment on above: Performed By: #### C BCWD #### [facility] [address] [place] [address] Ovalocytes 1+ Normal [facility] Comment on above: Performed By: #### C BCWD #### [facility] [address] [place] [address] Poikilocytosis 1+ Normal [facility] Comment on above: Performed By: #### C BCWD #### [facility] [address] [place] [address] Erythrocyte distribution width (RBC) [Ratio] 13.3 % Normal 11.5-14.5 [facility] Comment on above: Performed By: #### C BCWD #### [facility] [address] [place] [address] Hematocrit (Bld) [Volume fraction] 34.0 % Low 37.0-47.0 [facility] Comment on above: Performed By: #### C BCWD #### [facility] [address] [place] [address] Hemoglobin (Bld) [Mass/Vol] 11.8 g/dL Low 12.0-16.0 [facility] Comment on above: Performed By: #### C BCWD #### [facility] [address] [place] [address] MCH (RBC) [Entitic mass] 31.3 pg Normal 27.0-31.3 [facility] Comment on above: Performed By: #### C BCWD #### [facility] [address] [place] [address] MCHC 34.7 % Normal 33.0-37.0 [facility] Comment on above: Performed By: #### C BCWD #### [facility] [address] [place] [address] MCV (RBC) [Entitic vol] 90.2 fL Normal 79.4-94.8 [facility] Comment on above: Performed By: #### C BCWD #### [facility] [address] [place] [address] Platelets (Bld) [#/Vol] 201 10*3/uL Normal 130-400 [facility] Comment on above: Performed By: #### C BCWD #### [facility] [address] [place] [address] RBC (Bld) [#/Vol] 3.77 10*6/uL Low 4.20-5.40 [facility] Comment on above: Performed By: #### C BCWD #### [facility] [address] [place] [address] WBC (Bld) [#/Vol] 2.7 10*3/uL Low 4.8-10.8 [facility] Comment on above: Performed By: #### C BCWD #### [facility] [address] [place] [address] Magnesiumon 12-02-2022 Magnesium [Mass/Vol] 1.9 mg/dL Normal 1.7-2.4 [facility] Comment on above: Performed By: #### C BCWD #### [facility] [address] [place] [address] POCT Glucoseon 12-02-2022 Glucose [Mass/Vol] 115 mg/dL Critically high 70-99 [facility] Comment on above: Performed By: #### P GLU #### [facility] [address] [place] [address] POC Performed on ACCU-CHEK [facility] Comment on above: Performed By: #### P GLU #### [facility] [address] [place] [address] Glucose [Mass/Vol] 94 mg/dL Normal 70-99 [facility] Comment on above: Performed By: #### P GLU #### [facility] [address] [place] [address] POC Performed on ACCU-CHEK Normal [facility] Comment on above: Performed By: #### P GLU #### [facility] [address] [place] [address] Glucose [Mass/Vol] 94 mg/dL Normal 70-99 [facility] Comment on above: Performed By: #### P GLU #### [facility] [address] [place] [address] POC Performed on ACCU-CHEK Normal [facility] Comment on above: Performed By: #### P GLU #### [facility] [address] [place] [address] Phosphoruson 12-02-2022 Phosphate [Mass/Vol] 3.7 mg/dL Normal 2.3-4.8 [facility] Comment on above: Performed By: #### P GLU #### [facility] [address] [place] [address] CNPNon 12-01-2022 CNPN Normal [facility] Metabolic Pane nestor 12-01-2022 Albumin [Mass/Vol] 3.7 g/dL Normal 3.5-4.6 [facility] Comment on above: Performed By: #### C BCWD #### [facility] [address] [place] [address] ALP [Catalytic activity/Vol] 62 U/L Normal 40-130 [facility] Comment on above: Performed By: #### C BCWD #### [facility] [address] [place] [address] ALT [Catalytic activity/Vol] 16 U/L Normal 0-33 [facility] Comment on above: Performed By: #### C BCWD #### [facility] [address] [place] [address] Anion gap [Moles/Vol] 7 mmol/L Low 9-15 [facility] Comment on above: Performed By: #### C BCWD #### [facility] [address] [place] [address] AST [Catalytic activity/Vol] 30 U/L Normal 0-35 [facility] Comment on above: Performed By: #### C BCWD #### [facility] [address] [place] [address] Bilirubin [Mass/Vol] 0.3 mg/dL Normal 0.2-0.7 [facility] Comment on above: Performed By: #### C BCWD #### [facility] [address] [place] [address] Calcium [Mass/Vol] 8.3 mg/dL Low 8.5-9.9 [facility] Comment on above: Performed By: #### C BCWD #### [facility] [address] [place] [address] Chloride [Moles/Vol] 106 mmol/L Normal 95-107 [facility] Comment on above: Performed By: #### C BCWD #### [facility] [address] [place] [address] CO2 [Moles/Vol] 23 mmol/L Normal 20-31 [facility] Comment on above: Performed By: #### C BCWD #### [facility] [address] [place] [address] Creatinine [Mass/Vol] 0.66 mg/dL Normal 0.50-0.90 [facility] Comment on above: Performed By: #### C BCWD #### [facility] [address] [place] [address] GFR >60.0 Normal >60 [facility] Comment on above: Result Comment: Adán atric [...] secretion. Performed By: #### C BCWD #### [facility] [address] [place] [address] Globulin (S) [Mass/Vol] 2.1 g/dL Low 2.3-3.5 [facility] Comment on above: Performed By: #### C BCWD #### [facility] [address] [place] [address] Glucose [Mass/Vol] 104 mg/dL Critically high 70-[address] [facility] Comment on above: Performed By: #### C BCWD #### [facility] [address] [place] [address] Potassium [Moles/Vol] 3.9 mmol/L Normal 3.4-4.9 [facility] Comment on above: Performed By: #### C BCWD #### [facility] [address] [place] [address] Protein [Mass/Vol] 5.8 g/dL Low 6.3-8.0 [facility] Comment on above: Performed By: #### C BCWD #### [facility] [address] [place] [address] Sodium [Moles/Vol] 136 mmol/L Normal 135-144 [facility] Comment on above: Performed By: #### C BCWD #### [facility] [address] [place] [address] Urea nitrogen [Mass/Vol] 6 mg/dL Normal 6-20 [facility] Comment on above: Performed By: #### C BCWD #### [facility] [address] [place] [address] Magnesiumon 12-01-2022 Magnesium [Mass/Vol] 2.0 mg/dL Normal 1.7-2.4 [facility] Comment on above: Performed By: #### C BCWD #### [facility] [address] [place] [address] POCT Glucoseon 12-01-2022 Glucose [Mass/Vol] 113 mg/dL Critically high 70-[address] [facility] Comment on above: Performed By: #### P GLU #### [facility] [address] [place] [address] POC Performed on ACCU-CHEK Normal [facility] Comment on above: Result Comment: Robby meneses RN or Performed By: #### P GLU #### [facility] [address] [place] [address] Phosphoruson 12-01-2022 Phosphate [Mass/Vol] 3.7 mg/dL Normal 2.3-4.8 [facility] Comment on above: Performed By: #### P GLU #### [facility] [address] [place] [address] Triglycerideson 12-01-2022 Triglyceride [Mass/Vol] 111 mg/dL Normal 0-150 [facility] Comment on above: Result Comment: ATP III Triglycerides Classification is Normal. Performed By: #### T RIG #### [facility] [address] [place] [address] Comprehensive Metabolic Pane nestor 11-30-2022 Albumin [Mass/Vol] 3.5 g/dL Normal 3.5-4.6 [facility] Comment on above: Performed By: #### C BCWD #### [facility] [address] [place] [address] ALP [Catalytic activity/Vol] 45 U/L Normal 40-130 [facility] Comment on above: Performed By: #### C BCWD #### [facility] [address] [place] [address] ALT [Catalytic activity/Vol] 15 U/L Normal 0-33 [facility] Comment on above: Result Comment: Spec imen hemolysis has exceeded the interference as defined by Kamran. Result may be affected. Suggest recollection if clinically indicated. Performed By: #### C BCWD #### [facility] [address] [place] [address] Anion gap [Moles/Vol] 6 mmol/L Low 9-15 [facility] Comment on above: Performed By: #### C BCWD #### [facility] [address] [place] [address] AST [Catalytic activity/Vol] 40 U/L Critically high 0-35 [facility] Comment on above: Result Comment: Spec imen hemolysis has exceeded the interference as defined by Kamran. Value may be falsely increased. Suggest recollection if clinically indicated. Performed By: #### C BCWD #### [facility] [address] [place] [address] Bilirubin [Mass/Vol] 0.3 mg/dL Normal 0.2-0.7 [facility] Comment on above: Performed By: #### C BCWD #### [facility] [address] [place] [address] Calcium [Mass/Vol] 8.3 mg/dL Low 8.5-9.9 [facility] Comment on above: Performed By: #### C BCWD #### [facility] [address] [place] [address] Chloride [Moles/Vol] 107 mmol/L Normal 95-107 [facility] Comment on above: Performed By: #### C BCWD #### [facility] [address] [place] [address] CO2 [Moles/Vol] 23 mmol/L Normal 20-31 [facility] Comment on above: Performed By: #### C BCWD #### [facility] [address] [place] [address] Creatinine [Mass/Vol] 0.69 mg/dL Normal 0.50-0.90 [facility] Comment on above: Performed By: #### C BCWD #### [facility] [address] [place] [address] GFR >60.0 Normal >60 [facility] Comment on above: Result Comment: Adán atric [...] secretion. Performed By: #### C BCWD #### [facility] [address] [place] [address] Globulin (S) [Mass/Vol] 1.9 g/dL Low 2.3-3.5 [facility] Comment on above: Performed By: #### C BCWD #### [facility] [address] [place] [address] Glucose [Mass/Vol] 86 mg/dL Normal 70-99 [facility] Comment on above: Performed By: #### C BCWD #### [facility] [address] [place] [address] Potassium [Moles/Vol] 4.6 mmol/L Normal 3.4-4.9 [facility] Comment on above: Result Comment: Spec imen hemolysis has exceeded the interference as defined by Kamran. Value may be falsely increased. Suggest recollection if clinically indicated. Performed By: #### C BCWD #### [facility] [address] [place] [address] Protein [Mass/Vol] 5.4 g/dL Low 6.3-8.0 [facility] Comment on above: Performed By: #### C BCWD #### [facility] [address] [place] [address] Sodium [Moles/Vol] 136 mmol/L Normal 135-144 [facility] Comment on above: Performed By: #### C BCWD #### [facility] [address] [place] [address] Urea nitrogen [Mass/Vol] 4 mg/dL Low 6-20 [facility] Comment on above: Performed By: #### C BCWD #### [facility] [address] [place] [address] IR PICC WO SQ PORT/PUMP > 5 [...] caps and surgical masks. In addition, the winch derrick operator and molding line assistant donned sterile gowns and gloves after [...] sheath was placed over the guidewire. A 5-Egyptian dual-lumen PICC was advanced through the sheath, [...] Danyell Billings MD 11/30/22 Final result Normal [facility] Magnesiumon 11-30-2022 Magnesium [Mass/Vol] 1.9 mg/dL Normal 1.7-2.4 [facility] Comment on above: Performed By: #### P GLU #### [facility] [address] [place] [address] Phosphoruson 11-30-2022 Phosphate [Mass/Vol] 3.2 mg/dL Normal 2.3-4.8 [facility] Comment on above: Performed By: #### C BCWD #### [facility] [address] [place] [address] CBC With Platelet and Differ entialon 11-29-2022 Basophils (Bld) [#/Vol] 0.0 10*3/uL Normal 0.0-0.2 [facility] Comment on above: Performed By: #### P GLU #### [facility] [address] [place] [address] Basophils/100 WBC (Bld) 0.6 % Normal [facility] Comment on above: Performed By: #### P GLU #### [facility] [address] [place] [address] Eosinophils (Bld) [#/Vol] 0.1 10*3/uL Normal 0.0-0.7 [facility] Comment on above: Performed By: #### P GLU #### [facility] [address] [place] [address] Eosinophils/100 WBC (Bld) 4.4 % Normal [facility] Comment on above: Performed By: #### P GLU #### [facility] [address] [place] [address] Erythrocyte distribution width (RBC) [Ratio] 13.6 % Normal 11.5-14.5 [facility] Comment on above: Performed By: #### P GLU #### [facility] [address] [place] [address] Hematocrit (Bld) [Volume fraction] 36.4 % Low 37.0-47.0 [facility] Comment on above: Performed By: #### P GLU #### [facility] [address] [place] [address] Hemoglobin (Bld) [Mass/Vol] 12.2 g/dL Normal 12.0-16.0 [facility] Comment on above: Performed By: #### P GLU #### [facility] [address] [place] [address] Lymphocytes (Bld) [#/Vol] 1.3 10*3/uL Normal 1.0-4.8 [facility] Comment on above: Performed By: #### P GLU #### [facility] [address] [place] [address] Lymphocytes/100 WBC (Bld) 41.0 % Normal [facility] Comment on above: Performed By: #### P GLU #### [facility] [address] [place] [address] MCH (RBC) [Entitic mass] 30.9 pg Normal 27.0-31.3 [facility] Comment on above: Performed By: #### P GLU #### [facility] [address] [place] [address] MCHC 33.5 % Normal 33.0-37.0 [facility] Comment on above: Performed By: #### P GLU #### [facility] [address] [place] [address] MCV (RBC) [Entitic vol] 92.2 fL Normal 79.4-94.8 [facility] Comment on above: Performed By: #### P GLU #### [facility] [address] [place] [address] Monocytes (Bld) [#/Vol] 0.3 10*3/uL Normal 0.2-0.8 [facility] Comment on above: Performed By: #### P GLU #### [facility] [address] [place] [address] Monocytes/100 WBC (Bld) 9.8 % Normal [facility] Comment on above: Performed By: #### P GLU #### [facility] [address] [place] [address] Neutrophils (Bld) [#/Vol] 1.4 10*3/uL Normal 1.4-6.5 [facility] Comment on above: Performed By: #### P GLU #### [facility] [address] [place] [address] Neutrophils/100 WBC (Bld) 44.2 % Normal [facility] Comment on above: Performed By: #### P GLU #### [facility] [address] [place] [address] Platelets (Bld) [#/Vol] 242 10*3/uL Normal 130-400 [facility] Comment on above: Performed By: #### P GLU #### [facility] [address] [place] [address] RBC (Bld) [#/Vol] 3.95 10*6/uL Low 4.20-5.40 [facility] Comment on above: Performed By: #### P GLU #### [facility] [address] [place] [address] WBC (Bld) [#/Vol] 3.2 10*3/uL Low 4.8-10.8 [facility] Comment on above: Performed By: #### P GLU #### [facility] [address] [place] [address] Comprehensive Metabolic Pane nestor 11-29-2022 Albumin [Mass/Vol] 3.5 g/dL Normal 3.5-4.6 [facility] Comment on above: Performed By: #### P GLU #### [facility] [address] [place] [address] ALP [Catalytic activity/Vol] 60 U/L Normal 40-130 [facility] Comment on above: Performed By: #### P GLU #### [facility] [address] [place] [address] ALT [Catalytic activity/Vol] 15 U/L Normal 0-33 [facility] Comment on above: Performed By: #### P GLU #### [facility] [address] [place] [address] Anion gap [Moles/Vol] 8 mmol/L Low 9-15 [facility] Comment on above: Performed By: #### P GLU #### [facility] [address] [place] [address] AST [Catalytic activity/Vol] 28 U/L Normal 0-35 [facility] Comment on above: Performed By: #### P GLU #### [facility] [address] [place] [address] Bilirubin [Mass/Vol] mg/dL Normal 0.2-0.7 [facility] Comment on above: Performed By: #### P GLU #### [facility] [address] [place] [address] Calcium [Mass/Vol] 8.4 mg/dL Low 8.5-9.9 [facility] Comment on above: Performed By: #### P GLU #### [facility] [address] [place] [address] Chloride [Moles/Vol] 113 mmol/L Critically high 95-107 [facility] Comment on above: Performed By: #### P GLU #### [facility] [address] [place] [address] CO2 [Moles/Vol] 23 mmol/L Normal 20-31 [facility] Comment on above: Performed By: #### P GLU #### [facility] [address] [place] [address] Creatinine [Mass/Vol] 0.71 mg/dL Normal 0.50-0.90 [facility] Comment on above: Performed By: #### P GLU #### [facility] [address] [place] [address] GFR >60.0 Normal >60 [facility] Comment on above: Result Comment: Adán atric [...] secretion. Performed By: #### P GLU #### [facility] [address] [place] [address] Globulin (S) [Mass/Vol] 2.2 g/dL Low 2.3-3.5 [facility] Comment on above: Performed By: #### P GLU #### [facility] [address] [place] [address] Glucose [Mass/Vol] 85 mg/dL Normal 70-99 [facility] Comment on above: Performed By: #### P GLU #### [facility] [address] [place] [address] Potassium [Moles/Vol] 4.2 mmol/L Normal 3.4-4.9 [facility] Comment on above: Performed By: #### P GLU #### [facility] [address] [place] [address] Protein [Mass/Vol] 5.7 g/dL Low 6.3-8.0 [facility] Comment on above: Performed By: #### P GLU #### [facility] [address] [place] [address] Sodium [Moles/Vol] 144 mmol/L Normal 135-144 [facility] Comment on above: Performed By: #### P GLU #### [facility] [address] [place] [address] Urea nitrogen [Mass/Vol] 5 mg/dL Low 6-20 [facility] Comment on above: Performed By: #### P GLU #### [facility] [address] [place] [address] Lactic Acidon 11-29-2022 Lactate [Moles/Vol] 0.9 mmol/L Normal 0.5-2.2 [facility] Comment on above: Performed By: #### L IPAS #### [facility] [address] [place] [address] Lipaseon 11-29-2022 Lipase [Catalytic activity/Vol] 48 U/L Normal 12-95 [facility] Comment on above: Performed By: #### L IPAS #### [facility] [address] [place] [address] Magnesiumon 11-29-2022 Magnesium [Mass/Vol] 1.9 mg/dL Normal 1.7-2.4 [facility] Comment on above: Performed By: #### P GLU #### [facility] [address] [place] [address] Partial Thromboplastin Timeo n 11-29-2022 aPTT Coag (Bld) [Time] 33.0 s Normal 24.4-36.8 [facility] Comment on above: Result Comment: Effe ctive 12/20/2019: Heparin Therapeutic Range: 64.0 ? 98.0 seconds. Performed By: #### C BCWD #### [facility] [address] [place] [address] Phosphoruson 11-29-2022 Phosphate [Mass/Vol] 3.3 mg/dL Normal 2.3-4.8 [facility] Comment on above: Performed By: #### C BCWD #### [facility] [address] [place] [address] Prothrombin Timeon INR Coag (PPP) [Relative time] 1.2 {INR} Normal [facility] Comment on above: Performed By: #### P T #### [facility] [address] [place] [address] PT Coag (PPP) [Time] 15.6 s Critically high 12.3-14.9 [facility] Comment on above: Performed By: #### P T #### [facility] [address] [place] [address] Prealbuminon 11-28-2022 Prealbumin [Mass/Vol] 15.0 mg/dL Low 20.0-40.0 [facility] Comment on above: Order Comment: Colle ction has been rescheduled by DUEAS at 11/28/2022 18:15 Reason:Failed attempt at venipuncture Performed By: #### L IPAS #### [facility] [address] [place] [address] Amylaseon 11-27-2022 Amylase [Catalytic activity/Vol] 44 U/L Normal 22-93 [facility] Comment on above: Performed By: #### P GLU #### [facility] [address] [place] [address] CBC With Platelet and Differ entialon 11-27-2022 Basophils (Bld) [#/Vol] 0.0 10*3/uL Normal 0.0-0.2 [facility] Comment on above: Performed By: #### P GLU #### [facility] [address] [place] [address] Basophils/100 WBC (Bld) 0.7 % Normal [facility] Comment on above: Performed By: #### P GLU #### [facility] [address] [place] [address] Eosinophils (Bld) [#/Vol] 0.1 10*3/uL Normal 0.0-0.7 [facility] Comment on above: Performed By: #### P GLU #### [facility] [address] [place] [address] Eosinophils/100 WBC (Bld) 1.4 % Normal [facility] Comment on above: Performed By: #### P GLU #### [facility] [address] [place] [address] Erythrocyte distribution width (RBC) [Ratio] 13.3 % Normal 11.5-14.5 [facility] Comment on above: Performed By: #### P GLU #### [facility] [address] [place] [address] Hematocrit (Bld) [Volume fraction] 38.0 % Normal 37.0-47.0 [facility] Comment on above: Performed By: #### P GLU #### [facility] [facility] [address] [place] [address] Hemoglobin (Bld) [Mass/Vol] 12.7 g/dL Normal 12.0-16.0 [facility] Comment on above: Performed By: #### P GLU #### [facility] [address] [place] [address] Lymphocytes (Bld) [#/Vol] 1.4 10*3/uL Normal 1.0-4.8 [facility] Comment on above: Performed By: #### P GLU #### [facility] [address] [place] [address] Lymphocytes/100 WBC (Bld) 32.1 % Normal [facility] Comment on above: Performed By: #### P GLU #### [facility] [address] [place] [address] MCH (RBC) [Entitic mass] 30.6 pg Normal 27.0-31.3 [facility] Comment on above: Performed By: #### P GLU #### [facility] [address] [place] [address] MCHC 33.4 % Normal 33.0-37.0 [facility] Comment on above: Performed By: #### P GLU #### [facility] [address] [place] [address] MCV (RBC) [Entitic vol] 91.6 fL Normal 79.4-94.8 [facility] Comment on above: Performed By: #### P GLU #### [facility] [address] [place] [address] Monocytes (Bld) [#/Vol] 0.3 10*3/uL Normal 0.2-0.8 [facility] Comment on above: Performed By: #### P GLU #### [facility] [address] [place] [address] Monocytes/100 WBC (Bld) 6.0 % Normal [facility] Comment on above: Performed By: #### P GLU #### [facility] [address] [place] [address] Neutrophils (Bld) [#/Vol] 2.6 10*3/uL Normal 1.4-6.5 [facility] Comment on above: Performed By: #### P GLU #### [facility] [address] [place] [address] Neutrophils/100 WBC (Bld) 59.6 % Normal [facility] Comment on above: Performed By: #### P GLU #### [facility] [address] [place] [address] Platelets (Bld) [#/Vol] 238 10*3/uL Normal 130-400 [facility] Comment on above: Performed By: #### P GLU #### [facility] [address] [place] [address] RBC (Bld) [#/Vol] 4.15 10*6/uL Low 4.20-5.40 [facility] Comment on above: Performed By: #### P GLU #### [facility] [address] [place] [address] WBC (Bld) [#/Vol] 4.4 10*3/uL Low 4.8-10.8 [facility] Comment on above: Performed By: #### P GLU #### [facility] [address] [place] [address] [address] ABDOMEN PELVIS W IV CONTR Daljit [...] Iker Ayala MD 11/27/22 Final result Normal [facility] CTA CHEST W WO CONTRASTon CTA CHEST [...] Jason Mcrae MD 11/27/22 Final result Normal [facility] Comprehensive Metabolic Pane nestor 11-27-2022 Albumin [Mass/Vol] 4.0 g/dL Normal 3.5-4.6 [facility] Comment on above: Performed By: #### P GLU #### [facility] [address] [place] [address] ALP [Catalytic activity/Vol] 60 U/L Normal 40-130 [facility] Comment on above: Performed By: #### P GLU #### [facility] [address] [place] [address] ALT [Catalytic activity/Vol] 20 U/L Normal 0-33 [facility] Comment on above: Performed By: #### P GLU #### [facility] [address] [place] [address] Anion gap [Moles/Vol] 10 mmol/L Normal 9-15 [facility] Comment on above: Performed By: #### P GLU #### [facility] [address] [place] [address] AST [Catalytic activity/Vol] 34 U/L Normal 0-35 [facility] Comment on above: Performed By: #### P GLU #### [facility] [address] [place] [address] Bilirubin [Mass/Vol] 0.4 mg/dL Normal 0.2-0.7 [facility] Comment on above: Performed By: #### P GLU #### [facility] [address] [place] [address] Calcium [Mass/Vol] 8.4 mg/dL Low 8.5-9.9 [facility] Comment on above: Performed By: #### P GLU #### [facility] [address] [place] [address] Chloride [Moles/Vol] 108 mmol/L Critically high 95-107 [facility] Comment on above: Performed By: #### P GLU #### [facility] [address] [place] [address] CO2 [Moles/Vol] 20 mmol/L Normal 20-31 [facility] Comment on above: Performed By: #### P GLU #### [facility] [address] [place] [address] Creatinine [Mass/Vol] 0.68 mg/dL Normal 0.50-0.90 [facility] Comment on above: Performed By: #### P GLU #### [facility] [address] [place] [address] GFR >60.0 Normal >60 [facility] Comment on above: Result Comment: Adán atric [...] secretion. Performed By: #### P GLU #### [facility] [address] [place] [address] Globulin (S) [Mass/Vol] 2.3 g/dL Normal 2.3-3.5 [facility] Comment on above: Performed By: #### P GLU #### [facility] [address] [place] [address] Glucose [Mass/Vol] 82 mg/dL Normal 70-99 [facility] Comment on above: Performed By: #### P GLU #### [facility] [address] [place] [address] Potassium [Moles/Vol] 3.7 mmol/L Normal 3.4-4.9 [facility] Comment on above: Performed By: #### P GLU #### [facility] [address] [place] [address] Protein [Mass/Vol] 6.3 g/dL Normal 6.3-8.0 [facility] Comment on above: Performed By: #### P GLU #### [facility] [address] [place] [address] Sodium [Moles/Vol] 138 mmol/L Normal 135-144 [facility] Comment on above: Performed By: #### P GLU #### [facility] [address] [place] [address] Urea nitrogen [Mass/Vol] 8 mg/dL Normal 6-20 [facility] Comment on above: Performed By: #### P GLU #### [facility] [address] [place] [address] High Sensitivity Troponin To n 11-27-2022 High Sensitivity Troponin T <6 Normal 0-19 [facility] Comment on above: Result Comment: High Sensitivity Troponin values cannot be compared with other Troponin methodologies. Performed By: #### T RP5 #### [facility] [address] [place] [address] High Sensitivity Troponin T <6 Normal 0-19 [facility] Comment on above: Result Comment: High Sensitivity Troponin values cannot be compared with other Troponin methodologies. Performed By: #### P GLU #### [facility] [address] [place] [address] Lactic Acidon 11-27-2022 Lactate [Moles/Vol] 1.0 mmol/L Normal 0.5-2.2 [facility] Comment on above: Performed By: #### P GLU #### [facility] [address] [place] [address] Lipaseon 11-27-2022 Lipase [Catalytic activity/Vol] 37 U/L Normal 12-95 [facility] Comment on above: Performed By: #### P GLU #### [facility] [address] [place] [address] Magnesiumon 11-27-2022 Magnesium [Mass/Vol] 1.9 mg/dL Normal 1.7-2.4 [facility] Comment on above: Performed By: #### P GLU #### [facility] [address] [place] [address] POCT Venouson 11-27-2022 Creatinine [Mass/Vol] 0.9 mg/dL Normal 0.6-1.2 [facility] Comment on above: Performed By: #### L IPAS #### [facility] [address] [place] [address] GFR >60 Normal >60 [facility] Comment on above: Result Comment: Pedi atric [...] secretion. Performed By: #### L IPAS #### [facility] [address] [place] [address] POC Performed on SEE BELOW Normal [facility] Comment on above: Result Comment: Perf ormed on POC Performed By: #### L IPAS #### [facility] [address] [place] [address] POC Sample Type KIRA Normal [facility] Comment on above: Performed By: #### L IPAS #### [facility] [address] [place] [address] Urinalysis, reflex to cultur ryder 11-27-2022 Bilirubin Ql (U) Negative Normal Negative [facility] Comment on above: Performed By: #### P GLU #### [facility] [address] [place] [address] Clarity (U) Clear Normal Clear [facility] Comment on above: Performed By: #### P GLU #### [facility] [address] [place] [address] Color (U) Yellow Normal Straw/[place] [facility] Comment on above: Performed By: #### P GLU #### [facility] [address] [place] [address] Glucose Ql (U) Negative Normal Negative [facility] Comment on above: Performed By: #### P GLU #### [facility] [address] [place] [address] Hemoglobin Ql (U) Negative Normal Negative [facility] Comment on above: Performed By: #### P GLU #### [facility] [address] [place] [address] Ketones Ql (U) Negative Normal Negative [facility] Comment on above: Performed By: #### P GLU #### [facility] [address] [place] [address] Leukocyte esterase Test strip Ql (U) Negative Normal Negative [facility] Comment on above: Performed By: #### P GLU #### [facility] [address] [place] [address] Nitrite Ql (U) Negative Normal Negative [facility] Comment on above: Performed By: #### P GLU #### [facility] [address] [place] [address] pH (U) 7.5 [pH] Normal 5.0-9.0 [facility] Comment on above: Performed By: #### P GLU #### [facility] [address] [place] [address] Protein Ql (U) Negative Normal Negative [facility] Comment on above: Performed By: #### P GLU #### [facility] [address] [place] [address] Specific gravity (U) [Rel density] 1.026 Normal 1.005-1.03 [facility] Comment on above: Performed By: #### P GLU #### [facility] [address] [place] [address] Urine Reflexed to Culture Not Indicated Normal [facility] Comment on above: Performed By: #### P GLU #### [facility] [address] [place] [address] Urobilinogen Qn (U) 0.2 {Munir'U}/dL Normal < 2.0 [facility] Comment on above: Performed By: #### P GLU #### [facility] [address] [place] [address] CNNURSEon 11-26-2022 CNNURSE Normal [facility] US MESENTERIC ARTERY CMPLT V LABon 11-26-2022 US MESENTERIC ARTERY CMPLT VAS LAB Normal [facility] Ambulatory Visit Summaryon 1 Ambulatory Visit Summary Normal [address] [place] [address]- \.br\ Medications\.br\ What How Much When Why [...] hours as needed for Pain Pickup at [facility]/pharmacy #[id number]\.br\ Pharmacy Information\.br\ [facility]/pharmacy #[id number]: [address] [place], [place] [id number] [phone]\.br\ Allergies\.br\ NSAIDs (Unknown)\.br\ codeine (unknown)\.br\ Problems\.br\ Ongoing [...] Metabolic syndrome\.br\ PCOS- polycystic ovary syndrome\.br\ \.br\ [facility] CNPNon 11-25-2022 CNPN Normal [facility] Family Medicine Office/Clini c Noteon 11-25-2022 Family Medicine Office/Clinic Note Normal [facility] Comment on above: Result Comment: Elec tronically Signed By: Jaquan Paula\.br\Date and Time Signed: 11/25/22 13:56 EDT Population Healthon 11-25-19 Population Health Normal [facility] Basic metabolic 2000 panelon 11-23-2022 Anion gap [Moles/Vol] 12 mmol/L Normal 9-18 [facility] Comment on above: Order Comment: Speci men Type: BLOOD SPECIMENOrdering Facility: [facility] Address: [address] [place] [address] Performed By: #### 2 4321-2, , 15940-7 ####[facility]ATORYCLIA [id number] [place] [address] [place] Calcium [Mass/Vol] 8.4 mg/dL Low 8.5-10.2 [facility] Comment on above: Order Comment: Speci men Type: BLOOD SPECIMENOrdering Facility: [facility] Address: [address] [place] [address] Performed By: #### 2 4321-2, , 35366-7 ####[facility]ORATORYCLIA [id number] [place] [address] [place] Chloride [Moles/Vol] 107 mmol/L High 97-105 [facility] Comment on above: Order Comment: Speci men Type: BLOOD SPECIMENOrdering Facility: [facility] Address: [address] [place] [address] Performed By: #### 2 4321-2, , 68696-2 ####[facility]ORATORYCLIA [id number] [facility] [place] [address] [place] CO2 [Moles/Vol] 19 mmol/L Low 22-30 [facility] Comment [facility] above: Order Comment: Speci men Type: BLOOD SPECIMENOrdering Facility: [facility] Address: [address] [place] [address] Performed By: #### 2 4321-2, , ####[facility]ATORYCLIA [id number] [place] [address] [place] Creatinine [Mass/Vol] 0.71 mg/dL Normal 0.58-0.96 [facility] Comment on above: Order Comment: Speci men Type: BLOOD SPECIMENOrdering Facility: [facility] Address: [address] [place] [address] Performed By: #### 2 432-2, , ####[facility]ITALCLIA [id number] [facility] [place] [address] [place] Creatinine and Glomerular filtration rate.predicted panel (S/P/Bld) 115 mL/min/1.73m??? Normal >=60 [facility] Comment on above: Order Comment: Speci [facility] Type: BLOOD SPECIMENOrdering Facility: [facility] Address: [address] [place] [address] Result Comment: Jessica mated Glomerular Filtration Rate [...] GFR. Performed By: #### 2 4321-2, , 00649-4 ####[facility]ATORYCLIA [id number] [facility] [place] [address] [place] Glucose [Mass/Vol] 105 mg/dL High 74-99 [facility] Comment on above: Order Comment: Speci men Type: BLOOD SPECIMENOrdering Facility: [facility] Address: [address] [place] [address] Result Comment: The [place] [employer] (ADA) provides guidance for cutoff [...] Standards of Medical Care in Diabetes 2016, [place] [employer]. Diabetes Care. 2016.39(Suppl 1). Performed By: #### 2 4321-2, , 89787-8 ####[facility]ATORYCLIA [id number] [place] [address] [place] Potassium [Moles/Vol] 3.8 mmol/L Normal 3.7-5.1 [facility] Comment on above: Order Comment: Lyssai men Type: BLOOD SPECIMENOrdering Facility: [facility] Address: [address] [place] [address] Performed By: #### 2 4321-2, , 37283-0 ####[facility]ATORYCLIA [id number] [place] [address] [place] Sodium [Moles/Vol] 138 mmol/L Normal 136-144 [facility] Comment on above: Order Comment: Speci men Type: BLOOD SPECIMENOrdering Facility: [facility] Address: [address] [place] [address] Performed By: #### 2 4321-2, , 26171-8 ####[facility]ATORYCLIA [id number] [place] [address] [place] Urea nitrogen [Mass/Vol] 7 mg/dL Normal 7-21 [facility] Comment on above: Order Comment: Speci men Type: BLOOD SPECIMENOrdering Facility: [facility] Address: [address] [place] [address] Performed By: #### 2 4321-2, 44628-6, 94140-3 ####[facility]ATORYCLIA [id number] [place] [address] [place] CASE MGT INIT ASSESon 2022 [facility] CBC panel Auto (Bld)on 11-23 Erythrocyte distribution width (RBC) [Ratio] 13.6 % Normal 11.5-15.0 [facility] Comment on above: Order Comment: Speci men Type: BLOOD SPECIMENOrdering Facility: [facility] Address: [address] [place] [address] Performed By: #### 5 8410-2 ####[facility] LABORATORYIA [id number] [place] [address] [place] Hematocrit (Bld) [Volume fraction] 36.4 % Normal 36.0-46.0 [facility] Comment on above: Order Comment: Speci men Type: BLOOD SPECIMENOrdering Facility: [facility] Address: [address] [place] [address] Performed By: #### 5 8410-2 ####[facility] LABORATORYIA [id number] [place] [address] [place] Hemoglobin (Bld) [Mass/Vol] 11.8 g/dL Normal 11.5-15.5 [facility] Comment on above: Order Comment: Speci men Type: BLOOD SPECIMENOrdering Facility: [facility] Address: [address] [place] [address] Performed By: #### 5 8410-2 ####[facility] LABORATORYIA [id number] [place] [address] [place] MCH (RBC) [Entitic mass] 30.4 pg Normal 26.0-34.0 [facility] Comment on above: Order Comment: Speci men Type: BLOOD SPECIMENOrdering Facility: [facility] Address: [address] [place] [address] Performed By: #### 5 8410-2 ####[facility] PARKIA [id number] [place] [id number] [place] MCHC (RBC) [Mass/Vol] 32.4 g/dL Normal 30.5-36.0 [facility] Comment on above: Order Comment: Speci men Type: BLOOD SPECIMENOrdering Facility: [facility] Address: [address] [place] [address] Performed By: #### 5 8410-2 ####[facility] PARKIA [id number] [place] [id number] [place] MCV (RBC) [Entitic vol] 93.8 fL Normal 80.0-100.0 [facility] Comment on above: Order Comment: Speci men Type: BLOOD SPECIMENOrdering Facility: [facility] Address: [address] [place] [address] Performed By: #### 5 8410-2 ####[facility] [id number] [place] [id number] [place] Nucleated RBC (Bld) [#/Vol] 10*3/uL Normal <0.01 [facility] Comment on above: Order Comment: Speci men Type: BLOOD SPECIMENOrdering Facility: [facility] Address: [address] [place] [address] Performed By: #### 5 8410-2 ####[facility]ARK[facility] [id number] [place] [address] [place] Platelet mean volume (Bld) [Entitic vol] 10.9 fL Normal 9.0-12.7 [facility] Comment on above: Order Comment: Speci men Type: BLOOD SPECIMENOrdering Facility: [facility] Address: [address] [place] [address] Performed By: #### 5 8410-2 ####[facility] [id number] [place] [address] [place] Platelets (Bld) [#/Vol] 217 10*3/uL Normal 150-400 [facility] Comment on above: Order Comment: Speci men Type: BLOOD SPECIMENOrdering Facility: [facility] Address: [address] [place] [address] Performed By: #### 5 8410-2 ####[facility]ORATORYCLIA [id number] [place] [address] [place] RBC (Bld) [#/Vol] 3.88 10*6/uL Low 3.90-5.20 [facility] Comment on above: Order Comment: Speci men Type: BLOOD SPECIMENOrdering Facility: [facility] Address: [address] [place] [address] Performed By: #### 5 8410-2 ####[facility]PITALCLIA [id number] [place] [address] [place] WBC (Bld) [#/Vol] 3.45 10*3/uL Low 3.70-11.00 [facility] Comment on above: Order Comment: Speci men Type: BLOOD SPECIMENOrdering Facility: [facility] Address: [address] [place] [address] Performed By: #### 5 8410-2 ####[facility] [id number] [place] [address] [place] CNDSon 11-23-2022 CNDS Normal [facility] CNPNon 11-23-2022 CNPN Normal [facility] CONSULTon 11-23-2022 CONSULT Normal [facility] Hepatic function 2000 panelo n 11-23-2022 Albumin [Mass/Vol] 3.5 g/dL Low 3.9-4.9 [facility] Comment on above: Order Comment: Speci men Type: BLOOD SPECIMENOrdering Facility: [facility] Address: [address] [place] [address] Performed By: #### 2 4321-2, 80370-8, 30551-0 ####[facility]ATORYCLIA [id number] [place] [address] [place] ALP [Catalytic activity/Vol] 58 U/L Normal 34-123 [facility] Comment on above: Order Comment: Speci men Type: BLOOD SPECIMENOrdering Facility: [facility] Address: [address] [place] [address] Performed By: #### 2 4321-2, , ####[facility]ORATORYCLIA [id number] [place] [address] [place] ALT [Catalytic activity/Vol] 17 U/L Normal 7-38 [facility] Comment on above: Order Comment: Speci men Type: BLOOD SPECIMENOrdering Facility: [facility] Address: [address] [place] [address] Performed By: #### 2 4321-2, , ####[facility]ORATORYCLIA [id number] [place] [address] [place] AST [Catalytic activity/Vol] 34 U/L Normal 13-35 [facility] Comment on above: Order Comment: Speci men Type: BLOOD SPECIMENOrdering Facility: [facility] Address: [address] [place] [address] Performed By: #### 2 1-2, , ####[facility]ORATORYCLIA [id number] [place] [address] [place] Bilirubin [Mass/Vol] 0.4 mg/dL Normal 0.2-1.3 [facility] Comment on above: Order Comment: Speci men Type: BLOOD SPECIMENOrdering Facility: [facility] Address: [address] [place] [address] Performed By: #### 2 4321-2, , ####[facility]ORATORYCLIA [id number] [place] [address] [place] Bilirubin.conjugate d [Mass/Vol] mg/dL Normal <0.2 [facility] Comment on above: Order Comment: Speci men Type: BLOOD SPECIMENOrdering Facility: [facility] Address: [address] [place] [address] Performed By: #### 2 4321-2, 47744-0, 11018-2 ####[facility]ATORYCLIA [id number] [place] [address] [place] Protein [Mass/Vol] 5.9 g/dL Low 6.3-8.0 [facility] Comment on above: Order Comment: Speci men Type: BLOOD SPECIMENOrdering Facility: [facility] Address: [address] [place] [address] Performed By: #### 2 4321-2, , 70197-6 ####[facility]ITALCLIA [id number] [place] [address] [place] Magnesium SerPl-mCncon 11-23 Magnesium [Mass/Vol] 1.8 mg/dL Normal 1.7-2.3 [facility] Comment on above: Order Comment: Speci men Type: BLOOD SPECIMENOrdering Facility: [facility] Address: [address] [place] [address] Performed By: #### 2 4321-2, , ####[facility] [id number] [place] [id number] [place] CBC W Auto Differential pane l (Bld)on 11-22-2022 Basophils (Bld) [#/Vol] 0.03 10*3/uL Normal <0.11 [facility] Comment on above: Order Comment: Speci men Type: BLOOD SPECIMENOrdering Facility: [facility] Address: [address] [place] [address] Performed By: #### 5 7021-8 ####[facility]ORATORYCLIA [id number] [place] [id number] [place] Basophils/100 WBC (Bld) 0.6 % Normal [facility] Comment on above: Order Comment: Speci men Type: BLOOD SPECIMENOrdering Facility: [facility] Address: [address] [place] [address] Performed By: #### 5 7021-8 ####[facility]ATORYCLIA [id number] [facility] [place] [address] [place] Differential cell count method Nom (Bld) Auto Normal [facility] Comment on above: Order Comment: Speci men Type: BLOOD SPECIMENOrdering Facility: [facility] Address: [address] [place] [address] Performed By: #### 5 7021-8 ####[facility] LABORATORYIA [id number] [place] [address] [place] Eosinophils (Bld) [#/Vol] 0.08 10*3/uL Normal <0.46 [facility] Comment on above: Order Comment: Speci men Type: BLOOD SPECIMENOrdering Facility: [facility] Address: [address] [place] [address] Performed By: #### 5 7021-8 ####[facility] [id number] [place] [address] [place] Eosinophils/100 WBC (Bld) 1.7 % Normal [facility] Comment on above: Order Comment: Speci men Type: BLOOD SPECIMENOrdering Facility: [facility] Address: [address] [place] [address] Performed By: #### 5 7021-8 ####[facility] [id number] [place] [id number] [place] Erythrocyte distribution width (RBC) [Ratio] 13.4 % Normal 11.5-15.0 [facility] Comment on above: Order Comment: Speci men Type: BLOOD SPECIMENOrdering Facility: [facility] Address: [address] [place] [address] Performed By: #### 5 7021-8 ####[facility] [id number] [place] [id number] [place] Hematocrit (Bld) [Volume fraction] 40.4 % Normal 36.0-46.0 [facility] Comment on above: Order Comment: Speci men Type: BLOOD SPECIMENOrdering Facility: [facility] Address: [address] [place] [address] Performed By: #### 5 7021-8 ####[facility] LABORATORYCLIA [id number] [facility] [place] [address] [place] Hemoglobin (Bld) [Mass/Vol] 13.8 g/dL Normal 11.5-15.5 [facility] Comment on above: Order Comment: Speci men Type: BLOOD SPECIMENOrdering Facility: [facility] Address: [address] [place] [address] Performed By: #### 5 7021-8 ####[facility] LABORATORYCLIA [id number] [facility] [place] [address] [place] Immature granulocytes (Bld) [#/Vol] 10*3/uL Normal <0.10 [facility] Comment on above: Order Comment: Speci men Type: BLOOD SPECIMENOrdering Facility: [facility] Address: [address] [place] [address] Performed By: #### 5 7021-8 ####[facility] LABORATORYIA [id number] [facility] [address] [place] Immature granulocytes/100 WBC (Bld) 0.2 % Normal [facility] Comment on above: Order Comment: Speci men Type: BLOOD SPECIMENOrdering Facility: [facility] Address: [address] [place] [address] Performed By: #### 5 7021-8 ####[facility] LABORATORYIA [id number] [facility] [place] [address] [place] Lymphocytes (Bld) [#/Vol] 2.01 10*3/uL Normal 1.00-4.00 [facility] Comment on above: Order Comment: Speci men Type: BLOOD SPECIMENOrdering Facility: [facility] Address: [address] [place] [address] Performed By: #### 5 7021-8 ####[facility] LABORATORYIA [id number] [facility] [place] [address] [place] Lymphocytes/100 WBC (Bld) 42.2 % Normal [facility] Comment on above: Order Comment: Speci men Type: BLOOD SPECIMENOrdering Facility: [facility] Address: [address] [place] [address] Performed By: #### 5 7021-8 ####[facility] PARKIA [id number] [address] [place] MCH (RBC) [Entitic mass] 31.2 pg Normal 26.0-34.0 [facility] Comment on above: Order Comment: Speci men Type: BLOOD SPECIMENOrdering Facility: [facility] Address: [address] [place] [address] Performed By: #### 5 7021-8 ####[facility] PARKIA [id number] [place] [address] [place] MCHC (RBC) [Mass/Vol] 34.2 g/dL Normal 30.5-36.0 [facility] Comment on above: Order Comment: Speci men Type: BLOOD SPECIMENOrdering Facility: [facility] Address: [address] [place] [address] Performed By: #### 5 7021-8 ####[facility] PARKIA [id number] [place] [address] [place] MCV (RBC) [Entitic vol] 91.4 fL Normal 80.0-100.0 [facility] Comment on above: Order Comment: Speci men Type: BLOOD SPECIMENOrdering Facility: [facility] Address: [address] [place] [address] Performed By: #### 5 7021-8 ####[facility] PARKIA [id number] [address] [place] Monocytes (Bld) [#/Vol] 0.25 10*3/uL Normal <0.87 [facility] Comment on above: Order Comment: Speci men Type: BLOOD SPECIMENOrdering Facility: [facility] Address: [address] [place] [address] Performed By: #### 5 7021-8 ####[facility] LABORATORYIA [id number] [address] [place] Monocytes/100 WBC (Bld) 5.3 % Normal [facility] Comment on above: Order Comment: Speci men Type: BLOOD SPECIMENOrdering Facility: [facility] Address: [address] [place] [address] Performed By: #### 5 7021-8 ####[facility] LABORATORYCLIA [id number] [place] [address] [place] Neutrophils (Bld) [#/Vol] 2.38 10*3/uL Normal 1.45-7.50 [facility] Comment on above: Order Comment: Speci men Type: BLOOD SPECIMENOrdering Facility: [facility] Address: [address] [place] [address] Performed By: #### 5 7021-8 ####[facility] LABORATORYIA [id number] [place] [address] [place] Neutrophils/100 WBC (Bld) 50.0 % Normal [facility] Comment on above: Order Comment: Speci men Type: BLOOD SPECIMENOrdering Facility: [facility] Address: [address] [place] [address] Performed By: #### 5 7021-8 ####[facility] LABORATORYIA [id number] [place] [id number] [place] Nucleated RBC (Bld) [#/Vol] 10*3/uL Normal <0.01 [facility] Comment on above: Order Comment: Speci men Type: BLOOD SPECIMENOrdering Facility: [facility] Address: [address] [place] [address] Performed By: #### 5 7021-8 ####[facility] LABORATORYCLIA [id number] [place] [address] [place] Nucleated RBC/100 WBC (Bld) [Ratio] 0.0 /100 WBC Normal [facility] Comment on above: Order Comment: Speci men Type: BLOOD SPECIMENOrdering Facility: [facility] Address: [address] [place] [address] Performed By: #### 5 7021-8 ####[facility] LABORATORYCLIA [id number] [place] [address] [facility] Platelet mean volume (Bld) [Entitic vol] 11.1 fL Normal 9.0-12.7 [facility] Comment on above: Order Comment: Speci men Type: BLOOD SPECIMENOrdering Facility: [facility] Address: [address] [place] [address] Performed By: #### 5 7021-8 ####[facility] LABORATORYCLIA [id number] [facility] [place] [address] [place] Platelets (Bld) [#/Vol] 282 10*3/uL Normal 150-400 [facility] Comment on above: Order Comment: Speci men Type: BLOOD SPECIMENOrdering Facility: [facility] Address: [address] [place] [address] Performed By: #### 5 7021-8 ####[facility] PARKIA [id number] [place] [address] [place] RBC (Bld) [#/Vol] 4.42 10*6/uL Normal 3.90-5.20 [facility] Comment on above: Order Comment: Speci men Type: BLOOD SPECIMENOrdering Facility: [facility] Address: [address] [place] [address] Performed By: #### 5 7021-8 ####[facility] LABORATORYIA [id number] [facility] [place] [address] [place] WBC (Bld) [#/Vol] 4.76 10*3/uL Normal 3.70-11.00 [facility] Comment on above: Order Comment: Speci men Type: BLOOD SPECIMENOrdering Facility: [facility] Address: [address] [place] [address] Performed By: #### 5 7021-8 ####[facility] LABORATORYIA [id number] [place] [address] [place] [address] ABD/PEL W IVCONon 023 CT ABD/PEL W IVCON Normal [facility] Comprehensive metabolic 2000 panelon 11-22-2022 Albumin [Mass/Vol] 4.4 g/dL Normal 3.9-4.9 [facility] Comment on above: Order Comment: Speci men Type: BLOOD SPECIMENOrdering Facility: [facility] Address: [address] [place] [address] Performed By: #### 2 4323-8, 0-3, ####[facility] LABORATORYCLIA [id number] [facility] [place] [address] [place] ALP [Catalytic activity/Vol] 73 U/L Normal 34-123 [facility] Comment on above: Order Comment: Speci men Type: BLOOD SPECIMENOrdering Facility: [facility] Address: [address] [place] [address] Performed By: #### 2 4323-8, 3, ####[facility] LABORATORYCLIA [id number] [place] [address] [place] ALT [Catalytic activity/Vol] 21 U/L Normal 7-38 [facility] Comment on above: Order Comment: Speci men Type: BLOOD SPECIMENOrdering Facility: [facility] Address: [address] [place] [address] Performed By: #### 2 4323-8, 3, ####[facility] LABORATORYIA [id number] [place] [address] [place] Anion gap [Moles/Vol] 11 mmol/L Normal 9-18 [facility] Comment on above: Order Comment: Speci men Type: BLOOD SPECIMENOrdering Facility: [facility] Address: [address] [place] [address] Performed By: #### 2 4323-8, 3039-3, ####[facility] LABORATORYCLIA [id number] [facility] [place] [address] [place] AST [Catalytic activity/Vol] 39 U/L High 13-35 [facility] Comment on above: Order Comment: Speci men Type: BLOOD SPECIMENOrdering Facility: [facility] Address: [address] [place] [address] Performed By: #### 2 43238, 3039-04, ####[facility] LABORATORYIA [id number] [place] [address] [place] Bilirubin [Mass/Vol] 0.3 mg/dL Normal 0.2-1.3 [facility] Comment on above: Order Comment: Speci men Type: BLOOD SPECIMENOrdering Facility: [facility] Address: [address] [place] [address] Performed By: #### 2 4323-8, 3039-04, ####[facility] PARKIA [id number] [place] [address] [place] Calcium [Mass/Vol] 8.7 mg/dL Normal 8.5-10.2 [facility] Comment on above: Order Comment: Speci men Type: BLOOD SPECIMENOrdering Facility: [facility] Address: [address] [place] [address] Performed By: #### 2 4323-8, 3039-04, ####[facility] PARKIA [id number] [place] [address] [place] Chloride [Moles/Vol] 106 mmol/L High 97-105 [facility] Comment on above: Order Comment: Speci men Type: BLOOD SPECIMENOrdering Facility: [facility] Address: [address] [place] [address] Performed By: #### 2 4323-8, 3039-04, ####[facility] LABORATORYIA [id number] [facility] [place] [address] [place] CO2 [Moles/Vol] 22 mmol/L Normal 22-30 [facility] ital Comment on above: Order Comment: Speci men Type: BLOOD SPECIMENOrdering Facility: [facility] Address: [address] [place] [address] Performed By: #### 2 4323-8, 3, ####[facility] LABORATORYIA [id number] [place] [address] [place] Creatinine [Mass/Vol] 0.80 mg/dL Normal 0.58-0.96 [facility] Comment on above: Order Comment: Geraldo marrero Type: BLOOD SPECIMENOrdering Facility: [facility] Address: [address] [place] [id number] Performed By: #### 2 4323-8, 3040-3, ####[facility] LABORATORYCLIA [id number] [place] [address] [place] Creatinine and Glomerular filtration rate.predicted panel (S/P/Bld) 100 mL/min/1.73m??? Normal >=60 [facility] Comment on above: Order Comment: [facility] Type: BLOOD SPECIMENOrdering Facility: [facility] Address: [address] [place] [address] Result Comment: Jessica mated Glomerular Filtration Rate [...] GFR. Performed By: #### 2 4323-8, 0-3, ####[facility] LABORATORYCLIA [id number] [place] [address] [place] Glucose [Mass/Vol] 88 mg/dL Normal 74-99 [facility] Comment on above: Order Comment: Geraldo marrero Type: BLOOD SPECIMENOrdering Facility: [facility] Address: [address] [place] [address] Result Comment: The [place] [employer] (ADA) provides guidance for cutoff [...] Standards of Medical Care in Diabetes 2016, [place] [employer]. Diabetes Care. 2016.39(Suppl 1). Performed By: #### 2 4323-8, 0-3, ####[facility] LABORATORYCLIA [id number] [place] [address] [place] Potassium [Moles/Vol] 3.9 mmol/L Normal 3.7-5.1 [facility] Comment on above: Order Comment: Speci men Type: BLOOD SPECIMENOrdering Facility: [facility] Address: [address] [place] [address] Performed By: #### 2 4323-8, 3039-3, ####[facility]ITALCLIA [id number] [place] [address] [place] Protein [Mass/Vol] 7.1 g/dL Normal 6.3-8.0 [facility] Comment on above: Order Comment: Speci men Type: BLOOD SPECIMENOrdering Facility: [facility] Address: [address] [place] [address] Performed By: #### 2 4323-8, 3039-3, ####[facility] PARKIA [id number] [place] [address] [place] Sodium [Moles/Vol] 139 mmol/L Normal 136-144 [facility] Comment on above: Order Comment: Speci men Type: BLOOD SPECIMENOrdering Facility: [facility] Address: [address] [place] [address] Performed By: #### 2 4323-8, 0-3, ####[facility] LABORATORYIA [id number] [place] [address] [place] Urea nitrogen [Mass/Vol] 8 mg/dL Normal 7-21 [facility] Comment on above: Order Comment: Speci men Type: BLOOD SPECIMENOrdering Facility: [facility] Address: [address] [place] [address] Performed By: #### 2 4323-8, 3040-3, ####[facility] LABORATORYCLIA [id number] [place] [address] [place] ECG COMPLETEon 11-22-2022 ECG COMPLETE Normal [facility] ED NOTEon 11-22-2022 ED NOTE HNO ID: [id number] Author: Lady Garza RN Service: Emergency Medicine Author Type: Registered Nurse Type: ED Notes Filed: 11/22/2022 3:21 PM Note Text: Report to [facility] PRICE Normal [facility] ED PROV NOTEon 11-22-2022 ED PROV NOTE Normal [facility] HISTORY PHYSICALon HISTORY PHYSICAL Normal [facility] Lipase SerPl-cCncon 11-23-19 23 Lipase [Catalytic activity/Vol] 45 U/L Normal 16-61 [facility] Comment on above: Order Comment: Speci men Type: BLOOD SPECIMENOrdering Facility: [facility] Address: [address] [place] [address] Performed By: #### 2 4323-8, 0-3, ####[facility] HOSPITALCLIA [id number] [place] [address] [place] Magnesium SerPl-mCncon 11-22 Magnesium [Mass/Vol] 1.9 mg/dL Normal 1.7-2.3 [facility] Comment on above: Order Comment: Speci men Type: BLOOD SPECIMENOrdering Facility: [facility] Address: [address] [place], [place] [address] Performed By: #### 2 4323-8, 3040-3, ####[facility] LABORATORYCLIA [id number] [place] [address] [place] NURSING PROGon 11-22-2022 NURSING PROG Normal [facility] Urinalysis complete panel (U )on 11-22-2022 Bilirubin Ql (U) Negative Normal Negative [facility] Comment on above: Order Comment: Speci men Type: URINE SPECIMENOrdering Facility: [facility] Address: [address] [place] [address] Performed By: #### 2 4356-8 ####[facility] [id number] [place] [address] [place] Clarity (Unsp spec) Clear Normal Clear [facility] Comment on above: Order Comment: Speci men Type: URINE SPECIMENOrdering Facility: [facility] Address: [address] [place] [address] Performed By: #### 2 4356-8 ####[facility] [id number] [place] [address] [place] Color (U) Light Yellow Normal yellow [facility] Comment on above: Order Comment: Speci men Type: URINE SPECIMENOrdering Facility: [facility] Address: [address] [place] [address] Performed By: #### 2 4356-8 ####[facility] [id number] [place] [id number] [place] Epithelial cells LM.HPF (Urine sed) [#/Area] Few Normal [facility] Comment on above: Order Comment: Speci men Type: URINE SPECIMENOrdering Facility: [facility] Address: [address] [place] [address] Performed By: #### 2 4356-8 ####[facility] [id number] [place] [address] [place] Glucose Test strip (U) [Mass/Vol] Negative Normal Trace, Negative [facility] Comment on above: Order Comment: Speci men Type: URINE SPECIMENOrdering Facility: [facility] Address: [address] [place] [address] Performed By: #### 2 4356-8 ####[facility] [id number] [place] [address] [place] Hemoglobin Ql (U) Negative Normal Negative, Trace [facility] Comment on above: Order Comment: Speci men Type: URINE SPECIMENOrdering Facility: [facility] Address: [address] [place] [address] Performed By: #### 2 4356-8 ####[facility] PARKIA [id number] [place] [address] [place] Ketones Ql (U) Negative Normal Negative, Trace [facility] Comment on above: Order Comment: Speci men Type: URINE SPECIMENOrdering Facility: [facility] Address: [address] [place] [address] Performed By: #### 2 4356-8 ####[facility] PARKIA [id number] [place] [address] [place] Leukocyte esterase Test strip Ql (U) Negative Normal Negative, 25 [place]/uL [facility] Comment on above: Order Comment: Speci men Type: URINE SPECIMENOrdering Facility: [facility] Address: [address] [place] [address] Performed By: #### 2 4356-8 ####[facility] [id number] [place] [address] [place] Nitrite Ql (U) Negative Normal Negative [facility] Comment on above: Order Comment: Speci men Type: URINE SPECIMENOrdering Facility: [facility] Address: [address] [place] [address] Performed By: #### 2 4356-8 ####[facility] [id number] [place] [address] [place] pH (U) 7.0 [pH] Normal 5.0-8.0 [facility] Comment on above: Order Comment: Speci men Type: URINE SPECIMENOrdering Facility: [facility] Address: [address] [place] [address] Performed By: #### 2 4356-8 ####[facility] [id number] [place] [address] [place] Protein (U) [Mass/Vol] Negative Normal Trace, Negative [facility] Comment on above: Order Comment: Speci men Type: URINE SPECIMENOrdering Facility: [facility] Address: [address] [place] [address] Performed By: #### 2 4356-8 ####[facility] [id number] [place] [address] [place] RBC LM.HPF (Urine sed) [#/Area] 0-3 /HPF Normal 0-3 /HPF [facility] Comment on above: Order Comment: Speci men Type: URINE SPECIMENOrdering Facility: [facility] Address: [address] [place] [address] Performed By: #### 2 4356-8 ####[facility] [id number] [place] [id number] [place] Specific gravity (U) [Rel density] 1.020 Normal 1.005-1.030 [facility] Comment on above: Order Comment: Speci men Type: URINE SPECIMENOrdering Facility: [facility] Address: [address] [place] [address] Performed By: #### 2 4356-8 ####[facility] [id number] [place] [id number] [place] Urobilinogen Ql (U) Normal Normal Negative [facility] Comment on above: Order Comment: Speci men Type: URINE SPECIMENOrdering Facility: [facility] Address: [address] [place] [address] Performed By: #### 2 4356-8 ####[facility] [id number] [place] [id number] [place] WBC LM.HPF (Urine sed) [#/Area] 0-5 /HPF Normal 0-5 /HPF [facility] Comment on above: Order Comment: Speci men Type: URINE SPECIMENOrdering Facility: [facility] Address: [address] [place] [address] Performed By: #### 2 4356-8 ####[facility] [id number] [place] [id number] [place] XR CHEST 2V FRONTAL/LATon XR CHEST 2V FRONTAL/LAT Normal [facility] CNPNon 11-20-2022 CNPN Normal [facility] Basic metabolic 2000 panelon 11-19-2022 Anion gap [Moles/Vol] 11 mmol/L Normal 9-18 [facility] Comment on above: Order Comment: Speci men Type: BLOOD SPECIMENOrdering Facility: [facility] Address: [address] [facility] [place] [address] Performed By: #### 2 4321-2, , 2776-02 ####[facility] LABORATORYCLIA [id number] [place] [address] [place] Calcium [Mass/Vol] 8.9 mg/dL Normal 8.5-10.2 [facility] Comment on above: Order Comment: Speci men Type: BLOOD SPECIMENOrdering Facility: [facility] Address: [address] [place] [address] Performed By: #### 2 4321-2, , 2776-02 ####[facility] LABORATORYCLIA [id number] [place] [address] [place] Chloride [Moles/Vol] 104 mmol/L Normal 97-105 [facility] Comment on above: Order Comment: Speci men Type: BLOOD SPECIMENOrdering Facility: [facility] Address: [address] [place] [address] Performed By: #### 2 4321-2, , 2776-02 ####[facility] LABORATORYCLIA [id number] [place] [id number] [place] CO2 [Moles/Vol] 25 mmol/L Normal 22-30 [facility] Comment on above: Order Comment: Speci men Type: BLOOD SPECIMENOrdering Facility: [facility] Address: [address] [place] [address] Performed By: #### 2 4321-2, , 2776-02 ####[facility] LABORATORYCLIA [id number] [place] [id number] [place] Creatinine [Mass/Vol] 0.82 mg/dL Normal 0.58-0.96 [facility] Comment on above: Order Comment: Speci men Type: BLOOD SPECIMENOrdering Facility: [facility] Address: [address] [place] [address] Performed By: #### 2 4321-2, , 2776-02 ####[facility]ORATORYCLIA [id number] [place] [id number] [place] Creatinine and Glomerular filtration rate.predicted panel (S/P/Bld) 97 mL/min/1.73m??? Normal >=60 [facility] Comment on above: Order Comment: Geraldo marrero Type: BLOOD SPECIMENOrdering Facility: [facility] Address: [address] [place] [address] Result Comment: Jessica mated Glomerular Filtration Rate [...] Performed By: #### 2 4321-2, , 2776-02 ####[facility]ORATORYCLIA [id number] [place] [id number] [place] Glucose [Mass/Vol] 80 mg/dL Normal 74-99 [facility] Comment on above: Order Comment: Geraldo marrero Type: BLOOD SPECIMENOrdering Facility: [facility] Address: [address] [place] [address] Result Comment: The [place] [employer] (ADA) provides guidance for cutoff [...] Standards of Medical Care in Diabetes 2016, [place] [employer]. Diabetes Care. 2016.39(Suppl 1). Performed By: #### 2 4321-2, , 2776-02 ####[facility]ORATORYCLIA [id number] [place] [id number] [place] Potassium [Moles/Vol] 4.2 mmol/L Normal 3.7-5.1 [facility] Comment on above: Order Comment: Speci men Type: BLOOD SPECIMENOrdering Facility: [facility] Address: [address] [place] [address] Performed By: #### 2 4321-2, 94786-3, 2776- ####[facility] LABORATORYCLIA [id number] [place] [id number] [place] Sodium [Moles/Vol] 140 mmol/L Normal 136-144 [facility] Comment on above: Order Comment: Speci men Type: BLOOD SPECIMENOrdering Facility: [facility] Address: [address] [place] [address] Performed By: #### 2 4321-2, , 2776- ####[facility] LABORATORYCLIA [id number] [place] [id number] [place] Urea nitrogen [Mass/Vol] 6 mg/dL Low 7-21 [facility] Comment on above: Order Comment: Speci men Type: BLOOD SPECIMENOrdering Facility: [facility] Address: [address] [place] [address] Performed By: #### 2 4321-2, , 2776-02 ####[facility] LABORATORYCLIA [id number] [place] [id number] [place] CBC panel Auto (Bld)on 11-19 Erythrocyte distribution width (RBC) [Ratio] 13.2 % Normal 11.5-15.0 [facility] Comment on above: Order Comment: Speci men Type: BLOOD SPECIMENOrdering Facility: [facility] Address: [address] [place] [address] Performed By: #### 5 8410-2 ####[facility] LABORATORYCLIA [id number] [place] [id number] [place] Hematocrit (Bld) [Volume fraction] 36.3 % Normal 36.0-46.0 [facility] Comment on above: Order Comment: Speci men Type: BLOOD SPECIMENOrdering Facility: [facility] Address: [address] [place] [address] Performed By: #### 5 8410-2 ####[facility] LABORATORYCLIA [id number] [address] STATES [facility] Hemoglobin (Bld) [Mass/Vol] 12.4 g/dL Normal 11.5-15.5 [facility] Comment on above: Order Comment: Speci men Type: BLOOD SPECIMENOrdering Facility: [facility] Address: [address] [place] [address] Performed By: #### 5 8410-2 ####[facility] LABORATORYCLIA [id number] [address] MCH (RBC) [Entitic mass] 30.4 pg Normal 26.0-34.0 [facility] Comment on above: Order Comment: Speci men Type: BLOOD SPECIMENOrdering Facility: [facility] Address: [address] [place] [address] Performed By: #### 5 8410-2 ####[facility] LABORATORYCLIA [id number] [address] [place] [facility] MCHC (RBC) [Mass/Vol] 34.2 g/dL Normal 30.5-36.0 [facility] Comment on above: Order Comment: Speci men Type: BLOOD SPECIMENOrdering Facility: [facility] Address: [address] [place] [address] Performed By: #### 5 8410-2 ####OSVALDO LABORATORYCLIA [id number] [address] MCV (RBC) [Entitic vol] 89.0 fL Normal 80.0-100.0 [facility] Comment on above: Order Comment: Speci men Type: BLOOD SPECIMENOrdering Facility: [facility] Address: [address] [place] [address] Performed By: #### 5 8410-2 ####[facility] LABORATORYCLIA [id number] [address] [place] Nucleated RBC (Bld) [#/Vol] 10*3/uL Normal <0.01 [facility] Comment on above: Order Comment: Speci men Type: BLOOD SPECIMENOrdering Facility: [facility] Address: [address] [place] [address] Performed By: #### 5 8410-2 ####OSVALDO LABORATORYCLIA [id number] [place] [id number] [place] Platelet mean volume (Bld) [Entitic vol] 11.3 fL Normal 9.0-12.7 [facility] Comment on above: Order Comment: Speci men Type: BLOOD SPECIMENOrdering Facility: [facility] Address: [address] [place] [address] Performed By: #### 5 8410-2 ####[facility] LABORATORYCLIA [id number] [place] [address] [place] Platelets (Bld) [#/Vol] 239 10*3/uL Normal 150-400 [facility] Comment on above: Order Comment: Speci men Type: BLOOD SPECIMENOrdering Facility: [facility] Address: [address] [place] [address] Performed By: #### 5 8410-2 ####[facility] LABORATORYCLIA [id number] [place] [address] [place] RBC (Bld) [#/Vol] 4.08 10*6/uL Normal 3.90-5.20 [facility] [place] Comment on above: Order Comment: Speci men Type: BLOOD SPECIMENOrdering Facility: [facility] Address: [address] [place] [address] Performed By: #### 5 8410-2 ####OSVALDO LABORATORYCLIA [id number] [place] [id number] [place] WBC (Bld) [#/Vol] 2.99 10*3/uL Low 3.70-11.00 [facility] [place] Comment on above: Order Comment: Speci men Type: BLOOD SPECIMENOrdering Facility: [facility] Address: [address] [place] [address] Performed By: #### 5 8410-2 ####OSVALDO LABORATORYCLIA [id number] [place] [id number] [place] CNDSon 11-19-2022 CNDS Normal [facility] Magnesium [facility] 11-19 Magnesium [Mass/Vol] 1.9 mg/dL Normal 1.7-2.3 [facility] Comment on above: Order Comment: Speci men Type: BLOOD SPECIMENOrdering Facility: [facility] Address: [address] [place] [address] Performed By: #### 2 4321-2, , 2776-02 ####[facility] LABORATORYCLIA [id number] [place] [address] [place] NURSING PROGon 11-19-2022 NURSING PROG Normal [facility] Phosphate [facility] 11-19 Phosphate [Mass/Vol] 4.1 mg/dL Normal 2.7-4.8 [facility] Comment on above: Order Comment: Speci men Type: BLOOD SPECIMENOrdering Facility: [facility] Address: [place] [address] Performed By: #### 2 4321-2, , 2776-02 ####[facility] LABORATORYCLIA [id number] [place] [id number] [place] Basic metabolic 2000 panelon 11-18-2022 Anion gap [Moles/Vol] 10 mmol/L Normal 9-18 [facility] Comment on above: Order Comment: Speci men Type: BLOOD SPECIMENOrdering Facility: [facility] Address: [address] [place] [address] Performed By: #### 2 4321-2 ####[facility] LABORATORYCLIA [id number] [place] [id number] [place] Calcium [Mass/Vol] 8.8 mg/dL Normal 8.5-10.2 [facility] Comment on above: Order Comment: Speci men Type: BLOOD SPECIMENOrdering Facility: [facility] Address: [place] [address] Performed By: #### 2 4321-2 ####[facility] LABORATORYCLIA [id number] [address] Chloride [Moles/Vol] 105 mmol/L Normal 97-105 [facility] Comment on above: Order Comment: Speci men Type: BLOOD SPECIMENOrdering Facility: [facility] Address: [address] [place] [address] Performed By: #### 2 4321-2 ####[facility] LABORATORYCLIA [id number] [address] [place] CO2 [Moles/Vol] 22 mmol/L Normal 22-30 [facility] Comment on above: Order Comment: Speci men Type: BLOOD SPECIMENOrdering Facility: [facility] Address: [address] [place] [address] Performed By: #### 2 4321-2 ####[facility] LABORATORYCLIA [id number] [address] Creatinine [Mass/Vol] 0.61 mg/dL Normal 0.58-0.96 [facility] Comment on above: Order Comment: Speci men Type: BLOOD SPECIMENOrdering Facility: [facility] Address: [address] [place] [address] Performed By: #### 2 4321-2 ####[facility] LABORATORYCLIA [id number] [address] Creatinine and Glomerular filtration rate.predicted panel (S/P/Bld) 121 mL/min/1.73m??? Normal >=60 [facility] Comment on above: Order Comment: Speci men Type: BLOOD SPECIMENOrdering Facility: [facility] Address: [address] [place] [address] Result Comment: Jessica mated Glomerular Filtration Rate [...] Performed By: #### 2 4321-2 ####OS[facility] LABORATORYCLIA [id number] [place] [address] [place] Glucose [Mass/Vol] 115 mg/dL High 74-99 [facility] Comment on above: Order Comment: Speci men Type: BLOOD SPECIMENOrdering Facility: [facility] Address: [address] [place] [address] Result Comment: The [place] [employer] (ADA) provides guidance for cutoff [...] Standards of Medical Care in Diabetes 2016, [place] [employer]. Diabetes Care. 2016.39(Suppl 1). Performed By: #### 2 4321-2 ####[facility] LABORATORYCLIA [id number] [place] [address] [place] Potassium [Moles/Vol] 4.2 mmol/L Normal 3.7-5.1 [facility] Comment on above: Order Comment: Lyssai elida Type: BLOOD SPECIMENOrdering Facility: [facility] Address: [address] [place] [address] Performed By: #### 2 4321-2 ####[facility] LABORATORYCLIA [id number] [place] [address] [place] Sodium [Moles/Vol] 137 mmol/L Normal 136-144 [facility] Comment on above: Order Comment: Speci men Type: BLOOD SPECIMENOrdering Facility: [facility] Address: [address] [place] [address] Performed By: #### 2 4321-2 ####[facility] LABORATORYCLIA [id number] [place] [address] [place] Urea nitrogen [Mass/Vol] 6 mg/dL Low 7-21 [facility] Comment on above: Order Comment: Speci men Type: BLOOD SPECIMENOrdering Facility: [facility] Address: [address] [place] [address] Performed By: #### 2 4321-2 ####[facility] LABORATORYCLIA [id number] [place] [address] [place] CASE MGT INIT ASSESon 2022 CASE MGT INIT ASSES Normal [facility] [place] CBC panel Auto (Bld)on 11-18 Erythrocyte distribution width (RBC) [Ratio] 13.0 % Normal 11.5-15.0 [facility] Comment on above: Order Comment: Speci men Type: BLOOD SPECIMENOrdering Facility: [facility] Address: [address] [place] [address] Performed By: #### 5 8410-2 ####[facility] LABORATORYCLIA [id number] [address] [place] Hematocrit (Bld) [Volume fraction] 35.7 % Low 36.0-46.0 [facility] Comment on above: Order Comment: Speci men Type: BLOOD SPECIMENOrdering Facility: [facility] Address: [address] [place] [address] Performed By: #### 5 8410-2 ####OS[facility] LABORATORYCLIA [id number] [place] [address] [place] Hemoglobin (Bld) [Mass/Vol] 12.3 g/dL Normal 11.5-15.5 [facility] Comment on above: Order Comment: Speci men Type: BLOOD SPECIMENOrdering Facility: [facility] Address: [address] [place] [address] Performed By: #### 5 8410-2 ####[facility] LABORATORYCLIA [id number] [place] [address] [place] MCH (RBC) [Entitic mass] 31.1 pg Normal 26.0-34.0 [facility] Comment on above: Order Comment: Speci men Type: BLOOD SPECIMENOrdering Facility: [facility] Address: [address] [place] [address] Performed By: #### 5 8410-2 ####OS[facility] LABORATORYCLIA [id number] [address] [place] [facility] MCHC (RBC) [Mass/Vol] 34.5 g/dL Normal 30.5-36.0 [facility] Comment on above: Order Comment: Speci men Type: BLOOD SPECIMENOrdering Facility: [facility] Address: [address] [place] [address] Performed By: #### 5 8410-2 ####[facility] LABORATORYCLIA [id number] [address] [place] MCV (RBC) [Entitic vol] 90.2 fL Normal 80.0-100.0 [facility] Comment on above: Order Comment: Speci men Type: BLOOD SPECIMENOrdering Facility: [facility] Address: [address] [place] [address] Performed By: #### 5 8410-2 ####[facility] LABORATORYCLIA [id number] [address] Nucleated RBC (Bld) [#/Vol] 10*3/uL Normal <0.01 [facility] Comment on above: Order Comment: Speci men Type: BLOOD SPECIMENOrdering Facility: [facility] Address: [address] [place] [address] Performed By: #### 5 8410-2 ####OS[facility] LABORATORYCLIA [id number] [address] [place] Platelet mean volume (Bld) [Entitic vol] 11.2 fL Normal 9.0-12.7 [facility] Comment on above: Order Comment: Speci men Type: BLOOD SPECIMENOrdering Facility: [facility] Address: [address] [place] [address] Performed By: #### 5 8410-2 ####[facility] LABORATORYCLIA [id number] [address] [place] Platelets (Bld) [#/Vol] 214 10*3/uL Normal 150-400 [facility] Comment on above: Order Comment: Speci men Type: BLOOD SPECIMENOrdering Facility: [facility] Address: [address] [place] [address] Performed By: #### 5 8410-2 ####OS[facility] LABORATORYCLIA [id number] [place] [address] [place] RBC (Bld) [#/Vol] 3.96 10*6/uL Normal 3.90-5.20 [facility] [place] Comment on above: Order Comment: Speci men Type: BLOOD SPECIMENOrdering Facility: [facility] Address: [address] [place] [address] Performed By: #### 5 8410-2 ####OS[facility] LABORATORYCLIA [id number] [place] [address] [place] WBC (Bld) [#/Vol] 3.48 10*3/uL Low 3.70-11.00 [facility] [place] Comment on above: Order Comment: Speci men Type: BLOOD SPECIMENOrdering Facility: [facility] Address: [address] [place] [address] Performed By: #### 5 8410-2 ####[facility] LABORATORYCLIA [id number] [address] [place] NURSING PROGon 11-18-2022 NURSING PROG Normal [facility] Urinalysis complete panel (U )on 11-18-2022 Bacteria LM.HPF (Urine sed) [#/Area] Rare Abnormal None Seen [facility] Comment on above: Order Comment: Speci men Type: URINE SPECIMENOrdering Facility: [facility] Address: [address] [place] [address] Performed By: #### 2 4356-8 ####OS[facility]DO LABORATORYCLIA [id number] [address] STATES OF [facility] Bilirubin Ql (U) Negative Normal Negative [facility] Comment on above: Order Comment: Speci men Type: URINE SPECIMENOrdering Facility: [facility] Address: [address] [place] [address] Performed By: #### 2 4356-8 ####OS[facility] LABORATORYCLIA [id number] [place] [address] [place] Clarity (Unsp spec) Clear Normal Clear [facility] [place] Comment on above: Order Comment: Speci men Type: URINE SPECIMENOrdering Facility: [facility] Address: [address] [place] [address] Performed By: #### 2 4356-8 ####[facility] LABORATORYCLIA [id number] [place] [address] [place] Color (U) Colorless Normal Yellow [facility] Comment on above: Order Comment: Speci men Type: URINE SPECIMENOrdering Facility: [facility] Address: [address] [place] [address] Performed By: #### 2 4356-8 ####[facility] LABORATORYCLIA [id number] [place] [address] [place] Epithelial cells LM.HPF (Urine sed) [#/Area] Few Normal [facility] Comment on above: Order Comment: Speci men Type: URINE SPECIMENOrdering Facility: [facility] Address: [address] [place] [address] Performed By: #### 2 4356-8 ####[facility] LABORATORYCLIA [id number] [place] [address] [place] Glucose Test strip (U) [Mass/Vol] Negative Normal Trace, Negative [facility] Comment on above: Order Comment: Speci men Type: URINE SPECIMENOrdering Facility: [facility] Address: [address] [place] [address] Performed By: #### 2 4356-8 ####[facility] LABORATORYCLIA [id number] [place] [address] [place] Hemoglobin Ql (U) Negative Normal Negative, Trace Fa [facility] Comment on above: Order Comment: Speci men Type: URINE SPECIMENOrdering Facility: [facility] Address: [address] [place] [address] Performed By: #### 2 4356-8 ####[facility] LABORATORYCLIA [id number] [place] [address] [place] Ketones Ql (U) Negative Normal Negative, Trace [facility] [place] Comment on above: Order Comment: Speci men Type: URINE SPECIMENOrdering Facility: [facility] Address: [address] [place] [address] Performed By: #### 2 4356-8 ####[facility] LABORATORYCLIA [id number] [address] [place] Leukocyte esterase Test strip Ql (U) Negative Normal Negative, 25 Patito/uL [facility] Comment on above: Order Comment: Speci men Type: URINE SPECIMENOrdering Facility: [facility] Address: [address] [place] [address] Performed By: #### 2 4356-8 ####[facility] LABORATORYCLIA [id number] [address] [place] Nitrite Ql (U) Negative Normal Negative [facility] Comment on above: Order Comment: Speci men Type: URINE SPECIMENOrdering Facility: [facility] Address: [address] [place] [address] Performed By: #### 2 4356-8 ####[facility] LABORATORYCLIA [id number] [place] [address] [place] pH (U) 7.5 [pH] Normal 5.0-8.0 [facility] Comment on above: Order Comment: Speci men Type: URINE SPECIMENOrdering Facility: [facility] Address: [address] [place] [address] Performed By: #### 2 4356-8 ####[facility] LABORATORYCLIA [id number] [place] [address] [place] Protein (U) [Mass/Vol] Negative Normal Trace, Negative [facility] Comment on above: Order Comment: Speci men Type: URINE SPECIMENOrdering Facility: [facility] Address: [address] [place] [address] Performed By: #### 2 4356-8 ####[facility] LABORATORYCLIA [id number] [place] [address] [place] RBC LM.HPF (Urine sed) [#/Area] 0-3 /HPF Normal 0-3 /HPF [facility] Comment on above: Order Comment: Speci men Type: URINE SPECIMENOrdering Facility: [facility] Address: [address] [place] [address] Performed By: #### 2 4356-8 ####[facility] LABORATORYCLIA [id number] [place] [address] [place] Specific gravity (U) [Rel density] 1.007 Normal 1.005-1.030 [facility] Comment on above: Order Comment: Speci men Type: URINE SPECIMENOrdering Facility: [facility] Address: [address] [place] [address] Performed By: #### 2 6-8 ####[facility] LABORATORYCLIA [id number] [place] [address] [place] Urobilinogen Ql (U) Negative Normal Negative [facility] [place] Comment on above: Order Comment: Speci men Type: URINE SPECIMENOrdering Facility: [facility] Address: [address] [place] [address] Performed By: #### 2 4356-8 ####[facility] LABORATORYCLIA [id number] [place] [address] [place] WBC LM.HPF (Urine sed) [#/Area] 0-5 /HPF Normal 0-5 /HPF [facility] Comment on above: Order Comment: Speci men Type: URINE SPECIMENOrdering Facility: [facility] Address: [address] [place] [address] Performed By: #### 2 4356-8 ####[facility] LABORATORYCLIA [id number] [place] [address] [place] Bilirubin Ql (U) Negative Normal Negative [facility] Comment on above: Order Comment: Speci men Type: URINE SPECIMENOrdering Facility: [facility] Address: [address] [place] [address] Performed By: #### 2 4356-8 ####[facility] LABORATORYCLIA [id number] [place] [address] [place] Clarity (Unsp spec) Clear Normal Clear [facility] [place] Comment on above: Order Comment: Speci men Type: URINE SPECIMENOrdering Facility: [facility] Address: [address] [place] [address] Performed By: #### 2 4356-8 ####[facility] LABORATORYCLIA [id number] [place] [address] [place] Color (U) Colorless Normal Yellow [facility] Comment on above: Order Comment: Speci men Type: URINE SPECIMENOrdering Facility: [facility] Address: [address] [place] [address] Performed By: #### 2 4356-8 ####[facility] LABORATORYCLIA [id number] [place] [address] [place] Epithelial cells LM.HPF (Urine sed) [#/Area] Few Normal [facility] Comment on above: Order Comment: Speci men Type: URINE SPECIMENOrdering Facility: [facility] Address: [address] [place] [address] Performed By: #### 2 4356-8 ####[facility] LABORATORYCLIA [id number] [place] [address] [place] Glucose Test strip (U) [Mass/Vol] Negative Normal Trace, Negative [facility] Comment on above: Order Comment: Speci men Type: URINE SPECIMENOrdering Facility: [facility] Address: [address] [place] [address] Performed By: #### 2 4356-8 ####[facility] LABORATORYCLIA [id number] [place] [address] [place] Hemoglobin Ql (U) Negative Normal Negative, Trace Fa [facility] Comment on above: Order Comment: Speci men Type: URINE SPECIMENOrdering Facility: [facility] Address: [address] [place] [address] Performed By: #### 2 4356-8 ####[facility] LABORATORYCLIA [id number] [place] [address] [place] Ketones Ql (U) Negative Normal Negative, Trace [facility] [place] Comment on above: Order Comment: Speci men Type: URINE SPECIMENOrdering Facility: [facility] Address: [address] [place] [address] Performed By: #### 2 4356-8 ####[facility] LABORATORYCLIA [id number] [address] Leukocyte esterase Test strip Ql (U) Negative Normal Negative, 25 Patito/uL [facility] Comment on above: Order Comment: Speci men Type: URINE SPECIMENOrdering Facility: [facility] Address: [address] [place] [address] Performed By: #### 2 4356-8 ####[facility] LABORATORYCLIA [id number] [address] Nitrite Ql (U) Negative Normal Negative [facility] Comment on above: Order Comment: Speci men Type: URINE SPECIMENOrdering Facility: [facility] Address: [address] [place] [address] Performed By: #### 2 4356-8 ####[facility] LABORATORYCLIA [id number] [place] [address] [place] pH (U) 7.5 [pH] Normal 5.0-8.0 [facility] Comment on above: Order Comment: Speci men Type: URINE SPECIMENOrdering Facility: [facility] Address: [address] [place] [address] Performed By: #### 2 4356-8 ####[facility] LABORATORYCLIA [id number] [place] [address] [place] Protein (U) [Mass/Vol] Negative Normal Trace, Negative [facility] Comment on above: Order Comment: Speci men Type: URINE SPECIMENOrdering Facility: [facility] Address: [address] [place] [address] Performed By: #### 2 4356-8 ####[facility] LABORATORYCLIA [id number] [place] [address] [place] RBC LM.HPF (Urine sed) [#/Area] 0-3 /HPF Normal 0-3 /HPF [facility] Comment on above: Order Comment: Speci men Type: URINE SPECIMENOrdering Facility: [facility] Address: [address] [place] [address] Performed By: #### 2 4356-8 ####[facility] LABORATORYCLIA [id number] [address] [place] Specific gravity (U) [Rel density] 1.006 Normal 1.005-1.030 [facility] Comment on above: Order Comment: Speci men Type: URINE SPECIMENOrdering Facility: [facility] Address: [address] [place] [address] Performed By: #### 2 4356-8 ####[facility] LABORATORYCLIA [id number] [address] [place] Urobilinogen Ql (U) Negative Normal Negative [facility] [place] Comment on above: Order Comment: Speci men Type: URINE SPECIMENOrdering Facility: [facility] Address: [address] [place] [address] Performed By: #### 2 4356-8 ####[facility] LABORATORYCLIA [id number] [place] [address] [place] WBC LM.HPF (Urine sed) [#/Area] 0-5 /HPF Normal 0-5 /HPF [facility] Comment on above: Order Comment: Speci men Type: URINE SPECIMENOrdering Facility: [facility] Address: [address] [place] [address] Performed By: #### 2 4356-8 ####[facility] LABORATORYCLIA [id number] [place] [address] [place] ALLIED HEALTHon 11-17-2022 ALLIED HEALTH Normal [facility] CBC W Auto Differential pane l (Bld)on 11-17-2022 Basophils (Bld) [#/Vol] 0.03 10*3/uL Normal <0.11 [facility] Comment on above: Order Comment: Speci men Type: BLOOD SPECIMENOrdering Facility: [facility] Address: [address] [address] Performed By: #### 5 7021-8 ####[facility] LABORATORYCLIA [id number] [address] [place] Basophils/100 WBC (Bld) 0.7 % Normal [facility] Comment on above: Order Comment: Speci men Type: BLOOD SPECIMENOrdering Facility: [facility] Address: [address] [place] [address] Performed By: #### 5 7021-8 ####OSVALDO LABORATORYCLIA [id number] [place] [id number] [place] Differential cell count method Nom (Bld) Auto Normal [facility] Comment on above: Order Comment: Speci men Type: BLOOD SPECIMENOrdering Facility: [facility] Address: [address] [place] [address] Performed By: #### 5 7021-8 ####OSVALDO LABORATORYCLIA [id number] [place] [address] [place] Eosinophils (Bld) [#/Vol] 0.07 10*3/uL Normal <0.46 [facility] Comment on above: Order Comment: Speci men Type: BLOOD SPECIMENOrdering Facility: [facility] Address: [address] [address] Performed By: #### 5 7021-8 ####OSVALDO LABORATORYCLIA [id number] [address] [place] Eosinophils/100 WBC (Bld) 1.7 % Normal [facility] Comment on above: Order Comment: Speci men Type: BLOOD SPECIMENOrdering Facility: [facility] Address: [address] [address] Performed By: #### 5 7021-8 ####OSVALDO LABORATORYCLIA [id number] [place] [address] [place] Erythrocyte distribution width (RBC) [Ratio] 13.2 % Normal 11.5-15.0 [facility] Comment on above: Order Comment: Speci men Type: BLOOD SPECIMENOrdering Facility: [facility] Address: [address] [place] [address] Performed By: #### 5 7021-8 ####OSVALDO LABORATORYCLIA [id number] [place] [address] [place] Hematocrit (Bld) [Volume fraction] 37.2 % Normal 36.0-46.0 [facility] Comment on above: Order Comment: Speci men Type: BLOOD SPECIMENOrdering Facility: [facility] Address: [address] [place] [address] Performed By: #### 5 7021-8 ####OSVALDO LABORATORYCLIA [id number] [place] [address] [place] Hemoglobin (Bld) [Mass/Vol] 12.9 g/dL Normal 11.5-15.5 [facility] Comment on above: Order Comment: Speci men Type: BLOOD SPECIMENOrdering Facility: [facility] Address: [address] [place] [address] Performed By: #### 5 7021-8 ####OSVALDO LABORATORYCLIA [id number] [place] [address] [place] Immature granulocytes (Bld) [#/Vol] 10*3/uL Normal <0.10 [facility] Comment on above: Order Comment: Speci men Type: BLOOD SPECIMENOrdering Facility: [facility] Address: [address] [place] [address] Performed By: #### 5 7021-8 ####OSVALDO LABORATORYCLIA [id number] [address] [place] Immature granulocytes/100 WBC (Bld) 0.2 % Normal [facility] Comment on above: Order Comment: Speci men Type: BLOOD SPECIMENOrdering Facility: [facility] Address: [address] [place] [address] Performed By: #### 5 7021-8 ####OSVALDO LABORATORYCLIA [id number] [place] [address] [place] Lymphocytes (Bld) [#/Vol] 1.81 10*3/uL Normal 1.00-4.00 [facility] Comment on above: Order Comment: Speci men Type: BLOOD SPECIMENOrdering Facility: [facility] Address: [address] [place] [address] Performed By: #### 5 7021-8 ####WHARTON LABORATORYCLIA [id number] [address] Lymphocytes/100 WBC (Bld) 44.6 % Normal [facility] Comment on above: Order Comment: Speci men Type: BLOOD SPECIMENOrdering Facility: [facility] Address: [address] [place] [address] Performed By: #### 5 7021-8 ####[facility] LABORATORYCLIA [id number] [address] [place] [facility] MCH (RBC) [Entitic mass] 31.1 pg Normal 26.0-34.0 [facility] Comment on above: Order Comment: Speci men Type: BLOOD SPECIMENOrdering Facility: [facility] Address: [address] [place] [address] Performed By: #### 5 7021-8 ####[facility] LABORATORYCLIA [id number] [address] MCHC (RBC) [Mass/Vol] 34.7 g/dL Normal 30.5-36.0 [facility] Comment on above: Order Comment: Speci men Type: BLOOD SPECIMENOrdering Facility: [facility] Address: [address] [place] [address] Performed By: #### 5 7021-8 ####[facility] LABORATORYCLIA [id number] [address] MCV (RBC) [Entitic vol] 89.6 fL Normal 80.0-100.0 [facility] Comment on above: Order Comment: Speci men Type: BLOOD SPECIMENOrdering Facility: [facility] Address: [address] [place] [address] Performed By: #### 5 7021-8 ####WH[facility] LABORATORYCLIA [id number] [address] Monocytes (Bld) [#/Vol] 0.21 10*3/uL Normal <0.87 [facility] Comment on above: Order Comment: Speci men Type: BLOOD SPECIMENOrdering Facility: [facility] Address: [address] [address] Performed By: #### 5 7021-8 ####OSVALDO LABORATORYCLIA [id number] [address] [place] Monocytes/100 WBC (Bld) 5.2 % Normal [facility] Comment on above: Order Comment: Speci men Type: BLOOD SPECIMENOrdering Facility: [facility] Address: [address] [address] Performed By: #### 5 7021-8 ####OSVALDO LABORATORYCLIA [id number] [place] [address] [place] Neutrophils (Bld) [#/Vol] 1.93 10*3/uL Normal 1.45-7.50 [facility] Comment on above: Order Comment: Speci men Type: BLOOD SPECIMENOrdering Facility: [facility] Address: [address] [place] [address] Performed By: #### 5 7021-8 ####OSVALDO LABORATORYCLIA [id number] [place] [address] [place] Neutrophils/100 WBC (Bld) 47.6 % Normal [facility] Comment on above: Order Comment: Speci men Type: BLOOD SPECIMENOrdering Facility: [facility] Address: [address] [place] [address] Performed By: #### 5 7021-8 ####OSVALDO LABORATORYCLIA [id number] [place] [address] [place] Nucleated RBC (Bld) [#/Vol] 10*3/uL Normal <0.01 [facility] Comment on above: Order Comment: Speci men Type: BLOOD SPECIMENOrdering Facility: [facility] Address: [address] [place] [address] Performed By: #### 5 7021-8 ####OSVALDO LABORATORYCLIA [id number] [place] [address] [place] Nucleated RBC/100 WBC (Bld) [Ratio] 0.0 /100 WBC Normal [facility] Comment on above: Order Comment: Speci men Type: BLOOD SPECIMENOrdering Facility: [facility] Address: [address] [place] [address] Performed By: #### 5 7021-8 ####OSVALDO LABORATORYCLIA [id number] [place] [address] [place] Platelet mean volume (Bld) [Entitic vol] 11.9 fL Normal 9.0-12.7 [facility] Comment on above: Order Comment: Speci men Type: BLOOD SPECIMENOrdering Facility: [facility] Address: [address] [place] [address] Performed By: #### 5 7021-8 ####[facility] LABORATORYCLIA [id number] [address] [place] Platelets (Bld) [#/Vol] 85 10*3/uL Low 150-400 [facility] Comment on above: Order Comment: Speci men Type: BLOOD SPECIMENOrdering Facility: [facility] Address: [address] [place] [address] Result Comment: Resu lts may be inaccurate due to the presence of microclots. Performed By: #### 5 7021-8 ####OSVALDO LABORATORYCLIA [id number] [place] [address] [place] RBC (Bld) [#/Vol] 4.15 10*6/uL Normal 3.90-5.20 [facility] Comment on above: Order Comment: Speci men Type: BLOOD SPECIMENOrdering Facility: [facility] Address: [address] [place] [address] Performed By: #### 5 7021-8 ####[facility] LABORATORYCLIA [id number] [place] [address] [place] WBC (Bld) [#/Vol] 4.06 10*3/uL Normal 3.70-11.00 [facility] [place] Comment on above: Order Comment: Speci men Type: BLOOD SPECIMENOrdering Facility: [facility] Address: [address] [place] [address] Result Comment: Resu lts may be inaccurate due to the presence of microclots. Performed By: #### 5 7021-8 ####OSVALDO LABORATORYCLIA [id number] [place] [id number] [place] CONSULTon 11-17-2022 CONSULT Normal [facility] CT ABD/PEL W IVCONon 023 CT ABD/PEL W IVCON Normal [facility] Comprehensive metabolic 2000 panelon 11-17-2022 Albumin [Mass/Vol] 4.2 g/dL Normal 3.9-4.9 [facility] Comment on above: Order Comment: Speci men Type: BLOOD SPECIMENOrdering Facility: [facility] Address: [address] [address] Performed By: #### 3 040-3, 03737-2 ####OSVALDO LABORATORYCLIA [id number] [place] [address] [place] ALP [Catalytic activity/Vol] 69 U/L Normal 34-123 [facility] Comment on above: Order Comment: Speci men Type: BLOOD SPECIMENOrdering Facility: [facility] Address: [address] [address] Performed By: #### 3 040-3, 40070-5 ####OSVAL[facility] LABORATORYCLIA [id number] [place] [address] [place] ALT [Catalytic activity/Vol] 22 U/L Normal 7-38 [facility] Comment on above: Order Comment: Speci men Type: BLOOD SPECIMENOrdering Facility: [facility] Address: [address] [address] Performed By: #### 3 0403, 45659-3 ####OSVALDO LABORATORYCLIA [id number] [place] [id number] [place] Anion gap [Moles/Vol] 9 mmol/L Normal 9-18 [facility] Comment on above: Order Comment: Speci men Type: BLOOD SPECIMENOrdering Facility: [facility] Address: [address] [address] Performed By: #### 3 040-3, 99378-2 ####OSVALDO LABORATORYCLIA [id number] [place] [id number] [place] AST [Catalytic activity/Vol] 40 U/L High 13-35 [facility] Comment on above: Order Comment: Speci men Type: BLOOD SPECIMENOrdering Facility: [facility] Address: [address] [place] [address] Performed By: #### 3 040-3, 46103-1 ####OSVALDO LABORATORYCLIA [id number] [place] [address] [place] Bilirubin [Mass/Vol] 0.4 mg/dL Normal 0.2-1.3 [facility] Comment on above: Order Comment: Speci men Type: BLOOD SPECIMENOrdering Facility: [facility] Address: [address] [place] [address] Performed By: #### 3 040-3, 04045-5 ####OSVALDO LABORATORYCLIA [id number] [place] [address] [place] Calcium [Mass/Vol] 8.8 mg/dL Normal 8.5-10.2 [facility] Comment on above: Order Comment: Speci men Type: BLOOD SPECIMENOrdering Facility: [facility] Address: [address] [place] [address] Performed By: #### 3 -3, 06701-8 ####OSVALDO LABORATORYCLIA [id number] [place] [address] [place] Chloride [Moles/Vol] 107 mmol/L High 97-105 [facility] Comment on above: Order Comment: Speci men Type: BLOOD SPECIMENOrdering Facility: [facility] Address: [address] [place] [address] Performed By: #### 3 040-3, 68868-6 ####OSVALDO LABORATORYCLIA [id number] [place] [address] [place] CO2 [Moles/Vol] 23 mmol/L Normal 22-30 [facility] Comment on above: Order Comment: Speci men Type: BLOOD SPECIMENOrdering Facility: [facility] Address: [address] [place], [place] [address] Performed By: #### 3 040-3, 81184-6 ####WH[facility] LABORATORYCLIA [id number] [place] [id number] [facility] Creatinine [Mass/Vol] 0.75 mg/dL Normal 0.58-0.96 [facility] Comment on above: Order Comment: Geraldo marrero Type: BLOOD SPECIMENOrdering Facility: [facility] Address: [address] Performed By: #### 3 040-3, 46113-5 ####WH[facility] LABORATORYCLIA [id number] [place] [id number] [facility] Creatinine and Glomerular filtration rate.predicted panel (S/P/Bld) 108 mL/min/1.73m??? Normal >=60 [facility] Comment on above: Order Comment: Geraldo marrero Type: BLOOD SPECIMENOrdering Facility: [facility] Address: [address] [place] [place] [address] Result Comment: Jessica mated Glomerular Filtration Rate [...] actual GFR. Performed By: #### 3 040-3, 21825-7 ####WH[facility] LABORATORYCLIA [id number] [place] [id number] [place] Glucose [Mass/Vol] 80 mg/dL Normal 74-99 [facility] Comment on above: Order Comment: Geraldo marrero Type: BLOOD SPECIMENOrdering Facility: [facility] Address: [address] [address] Result Comment: The [place] [employer] (ADA) provides guidance for cutoff [...] Standards of Medical Care in Diabetes 2016, [place] [employer]. Diabetes Care. 2016.39(Suppl 1). Performed By: #### 3 040-3, 90947-6 ####OSVALDO LABORATORYCLIA [id number] [place] [address] [place] Potassium [Moles/Vol] 4.3 mmol/L Normal 3.7-5.1 [facility] Comment on above: Order Comment: Lyssai elida Type: BLOOD SPECIMENOrdering Facility: [facility] Address: [address] [address] Performed By: #### 3 040-3, ####OSVALDO LABORATORYCLIA [id number] [place] [address] [place] Protein [Mass/Vol] 6.9 g/dL Normal 6.3-8.0 [facility] Comment on above: Order Comment: Speci elida Type: BLOOD SPECIMENOrdering Facility: [facility] Address: [address] [place] [address] Performed By: #### 3 -3, 75624-7 ####OSVALDO LABORATORYCLIA [id number] [place] [id number] [place] Sodium [Moles/Vol] 139 mmol/L Normal 136-144 [facility] Comment on above: Order Comment: Speci men Type: BLOOD SPECIMENOrdering Facility: [facility] Address: [address] [address] Performed By: #### 3 -3, 60355-8 ####[facility] LABORATORYCLIA [id number] [place] [address] [place] Urea nitrogen [Mass/Vol] 8 mg/dL Normal 7-21 [facility] Comment on above: Order Comment: Speci men Type: BLOOD SPECIMENOrdering Facility: [facility] Address: [address] [address] Performed By: #### 3 040-3, 15368-0 ####[facility] LABORATORYCLIA [id number] [place] [id number] [facility] ED NOTEon 11-17-2022 ED NOTE HNO ID: [id number] Author: Jayla Jean, RN Service: ? Author Type: Registered Nurse Type: ED Notes Filed: 11/17/2022 2:00 PM Note Text: Pt sts symptoms she feels like she is going to pass out in WR. Vitals rechecked and DS done Normal [facility] ED PROV NOTEon 11-17-2022 ED PROV NOTE Normal [facility] ED PROV NOTE Normal [facility] ED Triage Noteon 11-17-2022 ED Triage Note Normal [facility] Lipase SerPl-cCncon 11-18-19 23 Lipase [Catalytic activity/Vol] 26 U/L Normal 16-61 [facility] Comment on above: Order Comment: Speci men Type: BLOOD SPECIMENOrdering Facility: [facility] Address: [address] [place] [address] Performed By: #### 3 040-3, 55112-4 ####[facility] LABORATORYCLIA [id number] [place] [id number] [facility] NURSING PROGon 11-17-2022 NURSING PROG Normal [facility] NURSING PROG Normal [facility] Ambulatory Visit Summaryon 1 Ambulatory Visit Summary Normal [facility] Family Medicine Office/Clini c Noteon 11-16-2022 Family Medicine Office/Clinic Note Normal [facility] Comment on above: Result Comment: Elec tronically Signed By: Jaquan Paula\.rene\Date and Time Signed: 11/16/22 10:42 EDT Basic metabolic 2000 panelon 11-12-2022 Anion gap [Moles/Vol] 12 mmol/L Normal 9-18 [facility] Comment on above: Order Comment: Speci men Type: BLOOD SPECIMENOrdering Facility: [facility] Address: [address] [place] [address] Performed By: #### 2 4321-2 ####OSVALDO LABORATORYCLIA [id number] [place] [address] [place] Calcium [Mass/Vol] 8.8 mg/dL Normal 8.5-10.2 [facility] Comment on above: Order Comment: Speci men Type: BLOOD SPECIMENOrdering Facility: [facility] Address: [address] [address] Performed By: #### 2 4321-2 ####WH[facility] LABORATORYCLIA [id number] [place] [address] [place] Chloride [Moles/Vol] 104 mmol/L Normal 97-105 [facility] Comment on above: Order Comment: Speci men Type: BLOOD SPECIMENOrdering Facility: [facility] Address: [address] [place] [address] Performed By: #### 2 4321-2 ####WHARTON LABORATORYCLIA [id number] [place] [address] [place] CO2 [Moles/Vol] 20 mmol/L Low 22-30 [facility] Comment on above: Order Comment: Speci men Type: BLOOD SPECIMENOrdering Facility: [facility] Address: [address] [place] [address] Performed By: #### 2 4321-2 ####WH[facility] LABORATORYCLIA [id number] [place] [address] [place] Creatinine [Mass/Vol] 0.62 mg/dL Normal 0.58-0.96 [facility] Comment on above: Order Comment: Speci men Type: BLOOD SPECIMENOrdering Facility: [facility] Address: [address] [place] [address] Performed By: #### 2 4321-2 ####WHARTON LABORATORYCLIA [id number] [place] [address] [place] Creatinine and Glomerular filtration rate.predicted panel (S/P/Bld) 121 mL/min/1.73m??? Normal >=60 [facility] Comment on above: Order Comment: Speci men Type: BLOOD SPECIMENOrdering Facility: [facility] Address: [address] [place] [address] Result Comment: Jessica mated Glomerular Filtration Rate [...] 4321-2 ####[facility] LABORATORYCLIA [id number] [place] [address] [place] Glucose [Mass/Vol] 102 mg/dL High 74-99 [facility] Comment on above: Order Comment: Speci elida Type: BLOOD SPECIMENOrdering Facility: [facility] Address: [address] [place] [address] Result Comment: The [place] Diabetes [employer] (ADA) provides guidance for cutoff [...] Standards of Medical Care in Diabetes 2016, [place] [employer]. Diabetes Care. 2016.39(Suppl 1). Performed By: #### 2 4321-2 ####[facility] LABORATORYCLIA [id number] [place] [address] [place] Potassium [Moles/Vol] 4.2 mmol/L Normal 3.7-5.1 [facility] Comment on above: Order Comment: Geraldo marrero Type: BLOOD SPECIMENOrdering Facility: [facility] Address: [address] [place] [id number] Performed By: #### 2 4321-2 ####[facility] LABORATORYCLIA [id number] [place] [id number] [place] Sodium [Moles/Vol] 136 mmol/L Normal 136-144 [facility] Comment on above: Order Comment: Speci men Type: BLOOD SPECIMENOrdering Facility: [facility] Address: [address] [place] [address] Performed By: #### 2 4321-2 ####OS[facility] LABORATORYCLIA [id number] [place] [address] [place] [facility] Urea nitrogen [Mass/Vol] 8 mg/dL Normal 7-21 [facility] Comment on above: Order Comment: Speci men Type: BLOOD SPECIMENOrdering Facility: [facility] Address: [address] [place] [address] Performed By: #### 2 4321-2 ####[facility] LABORATORYCLIA [id number] [place] [address] [place] CBC W Auto Differential pane l (Bld)on 11-12-2022 Basophils (Bld) [#/Vol] 10*3/uL Normal <0.11 [facility] Comment on above: Order Comment: Speci men Type: BLOOD SPECIMENOrdering Facility: [facility] Address: [address] [place] [address] Performed By: #### 5 7021-8 ####[facility] LABORATORYCLIA [id number] [address] [place] Basophils/100 WBC (Bld) 0.2 % Normal [facility] Comment on above: Order Comment: Speci men Type: BLOOD SPECIMENOrdering Facility: [facility] Address: [address] [place] [address] Performed By: #### 5 7021-8 ####OSVALDO LABORATORYCLIA [id number] [address] [place] [facility] Differential cell count method Nom (Bld) Auto Normal [facility] Comment on above: Order Comment: Speci men Type: BLOOD SPECIMENOrdering Facility: [facility] Address: [address] [place] [address] Performed By: #### 5 7021-8 ####[facility] LABORATORYCLIA [id number] [place] [address] [place] Eosinophils (Bld) [#/Vol] 10*3/uL Normal <0.46 [facility] Comment on above: Order Comment: Speci men Type: BLOOD SPECIMENOrdering Facility: [facility] Address: [address] [place] [address] Performed By: #### 5 7021-8 ####OSVALDO LABORATORYCLIA [id number] [address] [place] Eosinophils/100 WBC (Bld) 0.0 % Normal [facility] Comment on above: Order Comment: Speci men Type: BLOOD SPECIMENOrdering Facility: [facility] Address: [address] [place] [address] Performed By: #### 5 7021-8 ####OSVALDO LABORATORYCLIA [id number] [address] [place] Erythrocyte distribution width (RBC) [Ratio] 12.6 % Normal 11.5-15.0 [facility] Comment on above: Order Comment: Speci men Type: BLOOD SPECIMENOrdering Facility: [facility] Address: [address] [place] [address] Performed By: #### 5 7021-8 ####[facility] LABORATORYCLIA [id number] [address] [place] Hematocrit (Bld) [Volume fraction] 36.9 % Normal 36.0-46.0 [facility] Comment on above: Order Comment: Speci men Type: BLOOD SPECIMENOrdering Facility: [facility] Address: [address] [place] [address] Performed By: #### 5 7021-8 ####[facility] LABORATORYCLIA [id number] [address] [place] Hemoglobin (Bld) [Mass/Vol] 12.8 g/dL Normal 11.5-15.5 [facility] Comment on above: Order Comment: Speci men Type: BLOOD SPECIMENOrdering Facility: [facility] Address: [address] [place] [address] Performed By: #### 5 7021-8 ####[facility] LABORATORYCLIA [id number] [place] [address] [place] Immature granulocytes (Bld) [#/Vol] 0.08 10*3/uL Normal <0.10 [facility] Comment on above: Order Comment: Speci men Type: BLOOD SPECIMENOrdering Facility: [facility] Address: [address] [address] Performed By: #### 5 7021-8 ####[facility] LABORATORYCLIA [id number] [place] [address] [place] Immature granulocytes/100 WBC (Bld) 0.8 % Normal [facility] Comment on above: Order Comment: Speci men Type: BLOOD SPECIMENOrdering Facility: [facility] Address: [address] [address] Performed By: #### 5 7021-8 ####[facility] LABORATORYCLIA [id number] [place] [address] [place] Lymphocytes (Bld) [#/Vol] 1.23 10*3/uL Normal 1.00-4.00 [facility] Comment on above: Order Comment: Speci men Type: BLOOD SPECIMENOrdering Facility: [facility] Address: [address] [address] Performed By: #### 5 7021-8 ####[facility] LABORATORYCLIA [id number] [address] STATES [facility] Lymphocytes/100 WBC (Bld) 12.8 % Normal [facility] Comment on above: Order Comment: Speci men Type: BLOOD SPECIMENOrdering Facility: [facility] Address: [address] [address] Performed By: #### 5 7021-8 ####[facility] LABORATORYCLIA [id number] [place] [address] [place] MCH (RBC) [Entitic mass] 30.4 pg Normal 26.0-34.0 [facility] Comment on above: Order Comment: Speci men Type: BLOOD SPECIMENOrdering Facility: [facility] Address: [address] [address] Performed By: #### 5 7021-8 ####[facility] LABORATORYCLIA [id number] [place] [address] [place] MCHC (RBC) [Mass/Vol] 34.7 g/dL Normal 30.5-36.0 [facility] Comment on above: Order Comment: Speci men Type: BLOOD SPECIMENOrdering Facility: [facility] Address: [address] [place] [address] Performed By: #### 5 7021-8 ####[facility] LABORATORYCLIA [id number] [address] [place] MCV (RBC) [Entitic vol] 87.6 fL Normal 80.0-100.0 [facility] Comment on above: Order Comment: Speci men Type: BLOOD SPECIMENOrdering Facility: [facility] Address: [address] [place] [address] Performed By: #### 5 7021-8 ####[facility] LABORATORYCLIA [id number] [place] [address] [place] Monocytes (Bld) [#/Vol] 0.42 10*3/uL Normal <0.87 [facility] Comment on above: Order Comment: Speci men Type: BLOOD SPECIMENOrdering Facility: [facility] Address: [address] [place] [address] Performed By: #### 5 7021-8 ####[facility] LABORATORYCLIA [id number] [address] [place] Monocytes/100 WBC (Bld) 4.4 % Normal [facility] Comment on above: Order Comment: Speci men Type: BLOOD SPECIMENOrdering Facility: [facility] Address: [address] [place] [address] Performed By: #### 5 7021-8 ####[facility] LABORATORYCLIA [id number] [place] [address] [place] Neutrophils (Bld) [#/Vol] 7.84 10*3/uL High 1.45-7.50 [facility] Comment on above: Order Comment: Speci men Type: BLOOD SPECIMENOrdering Facility: [facility] Address: [address] [place] [address] Performed By: #### 5 7021-8 ####[facility] LABORATORYCLIA [id number] [place] [address] [place] Neutrophils/100 WBC (Bld) 81.8 % Normal [facility] Comment on above: Order Comment: Speci men Type: BLOOD SPECIMENOrdering Facility: [facility] Address: [address] [place] [address] Performed By: #### 5 7021-8 ####[facility] LABORATORYCLIA [id number] [place] [address] [place] Nucleated RBC (Bld) [#/Vol] 10*3/uL Normal <0.01 [facility] Comment on above: Order Comment: Speci men Type: BLOOD SPECIMENOrdering Facility: [facility] Address: [address] [place] [address] Performed By: #### 5 7021-8 ####[facility] LABORATORYCLIA [id number] [place] [address] [place] Nucleated RBC/100 WBC (Bld) [Ratio] 0.0 /100 WBC Normal [facility] Comment on above: Order Comment: Speci men Type: BLOOD SPECIMENOrdering Facility: [facility] Address: [address] [place] [address] Performed By: #### 5 7021-8 ####[facility] LABORATORYCLIA [id number] [place] [address] [place] Platelet mean volume (Bld) [Entitic vol] 11.3 fL Normal 9.0-12.7 [facility] Comment on above: Order Comment: Speci men Type: BLOOD SPECIMENOrdering Facility: [facility] Address: [address] [place] [address] Performed By: #### 5 7021-8 ####[facility] LABORATORYCLIA [id number] [place] [address] [place] Platelets (Bld) [#/Vol] 253 10*3/uL Normal 150-400 [facility] Comment on above: Order Comment: Speci men Type: BLOOD SPECIMENOrdering Facility: [facility] Address: [address] [address] Performed By: #### 5 7021-8 ####[facility] LABORATORYCLIA [id number] [place] [id number] [facility] RBC (Bld) [#/Vol] 4.21 10*6/uL Normal 3.90-5.20 [facility] Comment on above: Order Comment: Speci men Type: BLOOD SPECIMENOrdering Facility: [facility] Address: [address] [place] [address] Performed By: #### 5 7021-8 ####[facility] LABORATORYCLIA [id number] [place] [id number] [facility] WBC (Bld) [#/Vol] 9.59 10*3/uL Normal 3.70-11.00 [facility] Comment on above: Order Comment: Speci men Type: BLOOD SPECIMENOrdering Facility: [facility] Address: [address] [place] [address] Performed By: #### 5 7021-8 ####[facility] LABORATORYCLIA [id number] [address] [place] CNDSon 11-12-2022 CNDS [facility] NURSING PROGon 11-12-2022 NURSING PROG [facility] NUTRITIONon 11-12-2022 NUTRITION [facility] ANES POSTPROC EVALon 023 ANES POSTPROC EVAL Normal [facility] ANES PRE-OPon 11-11-2022 ANES PRE-OP [facility] BRIEF OP NOTon 11-11-2022 BRIEF OP NOT [facility] ERCPon 11-11-2022 ERCP Normal [facility] NURSING PROGon 11-11-2022 NURSING PROG [facility] OPERATIVE NOon 11-11-2022 OPERATIVE NO [facility] PT EDon 11-11-2022 PT ED Normal [facility] TYPE + SCREENon 11-11-2022 ABO O [facility] Comment on above: Order Comment: Speci men Type: BLOOD SPECIMENOrdering Facility: [facility] Address: [address] [address] Performed By: #### T SCR ####[facility] BLOOD BANKCLIA [id number] [place] [id number] [facility] HISTORICAL AB SCR STATUS Negative [facility] Comment on above: Order Comment: Speci men Type: BLOOD SPECIMENOrdering Facility: [facility] Address: [address] [address] Performed By: #### T SCR ####[facility] BLOOD BANKCLIA [id number] [address] [place] Rh Nom (Bld) Positive Normal [facility] Comment on above: Order Comment: Speci men Type: BLOOD SPECIMENOrdering Facility: [facility] Address: [address] [place] [address] Performed By: #### T SCR ####[facility] BLOOD BANKCLIA [id number] [place] [address] [place] TYPE AND SCREEN EXPIRATION 11/14/2022 23:59 Normal [facility] Comment on above: Order Comment: Speci men Type: BLOOD SPECIMENOrdering Facility: [facility] Address: [address] [place] [address] Performed By: #### T SCR ####[facility] BLOOD BANKCLIA [id number] [place] [address] [place] XR ERCP READ ONLYon 11-12-19 23 XR ERCP READ ONLY Normal [facility] Population Healthon 11-10-19 23 Population Health Normal [facility] CNDSon 11-08-2022 CNDS Normal [facility] Basic metabolic 2000 panelon 11-06-2022 Anion gap [Moles/Vol] 8 mmol/L Low 11-02 [facility] Comment on above: Order Comment: Speci men Type: BLOOD SPECIMENOrdering Facility: [facility] Address: [address] [place] [address] Performed By: #### 2 4321-2 ####[facility] LABORATORYCLIA [id number] [facility] [place] [address] [place] Calcium [Mass/Vol] 8.6 mg/dL Normal 8.5-10.2 [facility] Comment on above: Order Comment: Speci men Type: BLOOD SPECIMENOrdering Facility: [facility] Address: [address] [place] [address] Performed By: #### 2 4321-2 ####[facility] LABORATORYCLIA [id number] [place] [address] [place] Chloride [Moles/Vol] 108 mmol/L High 97-105 [facility] Comment on above: Order Comment: Speci men Type: BLOOD SPECIMENOrdering Facility: [facility] Address: [address] [place] [address] Performed By: #### 2 4321-2 ####[facility] LABORATORYCLIA [id number] [place] [address] [place] CO2 [Moles/Vol] 24 mmol/L Normal 22-30 [facility] Comment on above: Order Comment: Speci men Type: BLOOD SPECIMENOrdering Facility: [facility] Address: [address] [place] [address] Performed By: #### 2 4321-2 ####[facility] LABORATORYCLIA [id number] [place] [address] [place] Creatinine [Mass/Vol] 0.74 mg/dL Normal 0.58-0.96 [facility] Comment on above: Order Comment: Speci men Type: BLOOD SPECIMENOrdering Facility: [facility] Address: [address] [place], [place] [address] Performed By: #### 2 4321-2 ####[facility] LABORATORYCLIA [id number] [place] [address] [place] Creatinine and Glomerular filtration rate.predicted panel (S/P/Bld) 110 mL/min/1.73m??? Normal >=60 [facility] Comment on above: Order Comment: Speci men Type: BLOOD SPECIMENOrdering Facility: [facility] Address: [address] [place], [place] [address] Result Comment: Jessica mated Glomerular Filtration Rate [...] actual GFR. Performed By: #### 2 4321-2 ####[facility] PARKIA [id number] [place] [address] [place] Glucose [Mass/Vol] 82 mg/dL Normal 74-99 [facility] Comment on above: Order Comment: Geraldo marrero Type: BLOOD SPECIMENOrdering Facility: [facility] Address: [address] [id number] Result Comment: The [place] [employer] (ADA) provides guidance for cutoff [...] Standards of Medical Care in Diabetes 2016, [place] [employer]. Diabetes Care. 2016.39(Suppl 1). Performed By: #### 2 4321-2 ####[facility] PARKIA [id number] [place] [address] [place] Potassium [Moles/Vol] 3.9 mmol/L Normal 3.7-5.1 [facility] Comment on above: Order Comment: Geraldo marrero Type: BLOOD SPECIMENOrdering Facility: [facility] Address: [address] [id number] Performed By: #### 2 4321-2 ####[facility] LABORATORYIA [id number] [place] [address] [place] Sodium [Moles/Vol] 140 mmol/L Normal 136-144 [facility] Comment on above: Order Comment: Speci men Type: BLOOD SPECIMENOrdering Facility: [facility] Address: [address] [address] Performed By: #### 2 4321-2 ####[facility] LABORATORYCLIA [id number] [facility] [place] [address] [place] Urea nitrogen [Mass/Vol] 8 mg/dL Normal 7-21 [facility] Comment on above: Order Comment: Speci men Type: BLOOD SPECIMENOrdering Facility: [facility] Address: [address] [address] Performed By: #### 2 4321-2 ####[facility] LABORATORYIA [id number] [address] [place] CASE MGT INIT ASSESon 2022 CASE MGT INIT ASS Normal [facility] CBC panel Auto (Bld)on 11-06 Erythrocyte distribution width (RBC) [Ratio] 13.3 % Normal 11.5-15.0 [facility] Comment on above: Order Comment: Speci men Type: BLOOD SPECIMENOrdering Facility: [facility] Address: [address] [address] Performed By: #### 5 8410-2 ####[facility] LABORATORYIA [id number] [place] [id number] [place] Hematocrit (Bld) [Volume fraction] 34.5 % Low 36.0-46.0 [facility] Comment on above: Order Comment: Speci men Type: BLOOD SPECIMENOrdering Facility: [facility] Address: [address] [address] Performed By: #### 5 8410-2 ####[facility] LABORATORYIA [id number] [place] [address] [place] Hemoglobin (Bld) [Mass/Vol] 11.4 g/dL Low 11.5-15.5 [facility] Comment on above: Order Comment: Speci men Type: BLOOD SPECIMENOrdering Facility: [facility] Address: [address] [address] Performed By: #### 5 8410-2 ####[facility] [id number] [address] MCH (RBC) [Entitic mass] 30.8 pg Normal 26.0-34.0 [facility] Comment on above: Order Comment: Speci men Type: BLOOD SPECIMENOrdering Facility: [facility] Address: [address] [address] Performed By: #### 5 8410-2 ####[facility] [id number] [address] MCHC (RBC) [Mass/Vol] 33.0 g/dL Normal 30.5-36.0 [facility] Comment on above: Order Comment: Speci men Type: BLOOD SPECIMENOrdering Facility: [facility] Address: [address] [address] Performed By: #### 5 8410-2 ####[facility] [id number] [address] [place] MCV (RBC) [Entitic vol] 93.2 fL Normal 80.0-100.0 [facility] Comment on above: Order Comment: Speci men Type: BLOOD SPECIMENOrdering Facility: [facility] Address: [address] [address] Performed By: #### 5 8410-2 ####[facility] [id number] [address] Nucleated RBC (Bld) [#/Vol] 10*3/uL Normal <0.01 [facility] Comment on above: Order Comment: Speci men Type: BLOOD SPECIMENOrdering Facility: [facility] Address: [address] [address] Performed By: #### 5 8410-2 ####[facility] [id number] [place] [address] [place] Platelet mean volume (Bld) [Entitic vol] 11.3 fL Normal 9.0-12.7 [facility] Comment on above: Order Comment: Speci men Type: BLOOD SPECIMENOrdering Facility: [facility] Address: [address] [address] Performed By: #### 5 8410-2 ####[facility] LABORATORYCLIA [id number] [place] [id number] [place] Platelets (Bld) [#/Vol] 225 10*3/uL Normal 150-400 [facility] Comment on above: Order Comment: Speci men Type: BLOOD SPECIMENOrdering Facility: [facility] Address: [address] [address] Performed By: #### 5 8410-2 ####[facility] PARKIA [id number] [place] [address] [place] RBC (Bld) [#/Vol] 3.70 10*6/uL Low 3.90-5.20 [facility] Comment on above: Order Comment: Speci men Type: BLOOD SPECIMENOrdering Facility: [facility] Address: [address] [address] Performed By: #### 5 8410-2 ####[facility] PARK[facility] [id number] [place] [id number] [facility] [place] WBC (Bld) [#/Vol] 3.98 10*3/uL Normal 3.70-11.00 [facility] Comment on above: Order Comment: Speci men Type: BLOOD SPECIMENOrdering Facility: [facility] Address: [address] [address] Performed By: #### 5 8410-2 ####[facility] LABORATORYIA [id number] [place] [id number] [facility] [place] CONSULT PROGon 11-06-2022 CONSULT PROG Normal [facility] HEPATOBILIARY W EF AND/OR RXon 11-06-2022 NM HEPATOBILIARY W EF AND/OR RX Normal [facility] CBC W Auto Differential pane l (Bld)on 11-05-2022 Basophils (Bld) [#/Vol] 0.03 10*3/uL Normal <0.11 [facility] Comment on above: Order Comment: Speci men Type: BLOOD SPECIMENOrdering Facility: [facility] Address: [address] [address] Performed By: #### 5 7021-8 ####[facility] LABORATORYCLIA [id number] [place] [address] [place] Basophils/100 WBC (Bld) 0.6 % Normal [facility] Comment on above: Order Comment: Speci men Type: BLOOD SPECIMENOrdering Facility: [facility] Address: [address] [place] [address] Performed By: #### 5 7021-8 ####[facility] LABORATORYIA [id number] [place] [address] [place] Differential cell count method Nom (Bld) Auto Normal [facility] Comment on above: Order Comment: Speci men Type: BLOOD SPECIMENOrdering Facility: [facility] Address: [address] [place] [address] Performed By: #### 5 7021-8 ####[facility] PARK[facility] [id number] [place] [address] [place] Eosinophils (Bld) [#/Vol] 0.08 10*3/uL Normal <0.46 [facility] Comment on above: Order Comment: Speci men Type: BLOOD SPECIMENOrdering Facility: [facility] Address: [address] [address] Performed By: #### 5 7021-8 ####[facility] LABORATORYIA [id number] [place] [address] [place] Eosinophils/100 WBC (Bld) 1.5 % Normal [facility] Comment on above: Order Comment: Speci men Type: BLOOD SPECIMENOrdering Facility: [facility] Address: [address] [address] Performed By: #### 5 7021-8 ####[facility] LABORATORYCLIA [id number] [address] [place] Erythrocyte distribution width (RBC) [Ratio] 13.3 % Normal 11.5-15.0 [facility] Comment on above: Order Comment: Speci men Type: BLOOD SPECIMENOrdering Facility: [facility] Address: [address] [place] [address] Performed By: #### 5 7021-8 ####[facility] LABORATORYIA [id number] [address] [place] Hematocrit (Bld) [Volume fraction] 40.5 % Normal 36.0-46.0 [facility] Comment on above: Order Comment: Speci men Type: BLOOD SPECIMENOrdering Facility: [facility] Address: [address] [place] [address] Performed By: #### 5 7021-8 ####[facility] LABORATORYIA [id number] [place] [address] [place] Hemoglobin (Bld) [Mass/Vol] 13.3 g/dL Normal 11.5-15.5 [facility] Comment on above: Order Comment: Speci men Type: BLOOD SPECIMENOrdering Facility: [facility] Address: [address] [place] [address] Performed By: #### 5 7021-8 ####[facility] LABORATORYIA [id number] [place] [address] [place] Immature granulocytes (Bld) [#/Vol] 10*3/uL Normal <0.10 [facility] Comment on above: Order Comment: Speci men Type: BLOOD SPECIMENOrdering Facility: [facility] Address: [address] [place] [address] Performed By: #### 5 7021-8 ####[facility] LABORATORYIA [id number] [address] [place] Immature granulocytes/100 WBC (Bld) 0.4 % Normal [facility] Comment on above: Order Comment: Speci men Type: BLOOD SPECIMENOrdering Facility: [facility] Address: [address] [address] Performed By: #### 5 7021-8 ####[facility] [id number] [address] [place] Lymphocytes (Bld) [#/Vol] 2.53 10*3/uL Normal 1.00-4.00 [facility] Comment on above: Order Comment: Speci men Type: BLOOD SPECIMENOrdering Facility: [facility] Address: [address] [address] Performed By: #### 5 7021-8 ####[facility] [id number] [address] [place] Lymphocytes/100 WBC (Bld) 48.5 % Normal [facility] Comment on above: Order Comment: Speci men Type: BLOOD SPECIMENOrdering Facility: [facility] Address: [address] [address] Performed By: #### 5 7021-8 ####[facility] [id number] [address] [place] MCH (RBC) [Entitic mass] 30.4 pg Normal 26.0-34.0 [facility] Comment on above: Order Comment: Speci men Type: BLOOD SPECIMENOrdering Facility: [facility] Address: [address] Performed By: #### 5 7021-8 ####[facility] [id number] [address] [place] MCHC (RBC) [Mass/Vol] 32.8 g/dL Normal 30.5-36.0 [facility] Comment on above: Order Comment: Speci men Type: BLOOD SPECIMENOrdering Facility: [facility] Address: [address] Performed By: #### 5 7021-8 ####[facility] LABORATORYIA [id number] [place] [address] [place] MCV (RBC) [Entitic vol] 92.7 fL Normal 80.0-100.0 [facility] Comment on above: Order Comment: Speci men Type: BLOOD SPECIMENOrdering Facility: [facility] Address: [address] [address] Performed By: #### 5 7021-8 ####[facility] LABORATORYCLIA [id number] [place] [address] [place] Monocytes (Bld) [#/Vol] 0.30 10*3/uL Normal <0.87 [facility] Comment on above: Order Comment: Speci men Type: BLOOD SPECIMENOrdering Facility: [facility] Address: [address] [address] Performed By: #### 5 7021-8 ####[facility] [id number] [address] [place] Monocytes/100 WBC (Bld) 5.7 % Normal [facility] Comment on above: Order Comment: Speci men Type: BLOOD SPECIMENOrdering Facility: [facility] Address: [address] [address] Performed By: #### 5 7021-8 ####[facility] [id number] [place] [address] [place] Neutrophils (Bld) [#/Vol] 2.26 10*3/uL Normal 1.45-7.50 [facility] Comment on above: Order Comment: Speci men Type: BLOOD SPECIMENOrdering Facility: [facility] Address: [address] [address] Performed By: #### 5 7021-8 ####[facility] [id number] [address] [place] Neutrophils/100 WBC (Bld) 43.3 % Normal [facility] Comment on above: Order Comment: Speci men Type: BLOOD SPECIMENOrdering Facility: [facility] Address: [address] [address] Performed By: #### 5 7021-8 ####[facility] LABORATORYCLIA [id number] [facility] [place] [address] [place] Nucleated RBC (Bld) [#/Vol] 10*3/uL Normal <0.01 [facility] Comment on above: Order Comment: Speci men Type: BLOOD SPECIMENOrdering Facility: [facility] Address: [address] [place] [address] Performed By: #### 5 7021-8 ####[facility] LABORATORYIA [id number] [place] [address] [place] Nucleated RBC/100 WBC (Bld) [Ratio] 0.0 /100 WBC Normal [facility] Comment on above: Order Comment: Speci men Type: BLOOD SPECIMENOrdering Facility: [facility] Address: [address] [address] Performed By: #### 5 7021-8 ####[facility] PARKIA [id number] [place] [address] [place] Platelet mean volume (Bld) [Entitic vol] 11.4 fL Normal 9.0-12.7 [facility] Comment on above: Order Comment: Speci men Type: BLOOD SPECIMENOrdering Facility: [facility] Address: [address] [place] [address] Performed By: #### 5 7021-8 ####[facility] LABORATORYIA [id number] [facility] [place] [address] [place] Platelets (Bld) [#/Vol] 207 10*3/uL Normal 150-400 [facility] Comment on above: Order Comment: Speci men Type: BLOOD SPECIMENOrdering Facility: [facility] Address: [address] [address] Performed By: #### 5 7021-8 ####[facility]ATORYIA [id number] [facility] [place] [address] [place] RBC (Bld) [#/Vol] 4.37 10*6/uL Normal 3.90-5.20 [facility] Comment on above: Order Comment: Speci men Type: BLOOD SPECIMENOrdering Facility: [facility] Address: [address] Performed By: #### 5 7021-8 ####[facility] LABORATORYCLIA [id number] [place] [address] [place] WBC (Bld) [#/Vol] 5.22 10*3/uL Normal 3.70-11.00 [facility] Comment on above: Order Comment: Speci men Type: BLOOD SPECIMENOrdering Facility: [facility] Address: [address] [address] Performed By: #### 5 7021-8 ####[facility]ORATORYCLIA [id number] [place] [address] [place] CONSULTon 11-05-2022 CONSULT Normal [facility] CONSULT Normal [facility] Comprehensive metabolic 2000 panelon 11-05-2022 Albumin [Mass/Vol] 4.2 g/dL Normal 3.9-4.9 [facility] Comment on above: Order Comment: Speci men Type: BLOOD SPECIMENOrdering Facility: [facility] Address: [address] [address] Performed By: #### 2 4323-8, 3040-3 ####[facility]ORATORYCLIA [id number] [place] [address] [place] ALP [Catalytic activity/Vol] 71 U/L Normal 34-123 [facility] Comment on above: Order Comment: Speci men Type: BLOOD SPECIMENOrdering Facility: [facility] Address: [address] Performed By: #### 2 4323-8, 3040-3 ####[facility]ORYIA [id number] [place] [address] [place] ALT [Catalytic activity/Vol] 15 U/L Normal 7-38 [facility] Comment on above: Order Comment: Speci men Type: BLOOD SPECIMENOrdering Facility: [facility] Address: [address] Performed By: #### 2 4323-8, 3039-3 ####[facility] LABORATORYCLIA [id number] [place] [address] [place] Anion gap [Moles/Vol] 12 mmol/L Normal 9-18 [facility] Comment on above: Order Comment: Speci men Type: BLOOD SPECIMENOrdering Facility: [facility] Address: [address] [place] [address] Performed By: #### 2 432-8, 3039-3 ####[facility]ORATORYCLIA [id number] [place] [address] [place] AST [Catalytic activity/Vol] 26 U/L Normal 13-35 [facility] Comment on above: Order Comment: Speci men Type: BLOOD SPECIMENOrdering Facility: [facility] Address: [address] [place] [address] Performed By: #### 2 4323-8, 3 ####[facility] PARKIA [id number] [place] [address] [place] Bilirubin [Mass/Vol] 0.4 mg/dL Normal 0.2-1.3 [facility] Comment on above: Order Comment: Speci men Type: BLOOD SPECIMENOrdering Facility: [facility] Address: [address] [place] [address] Performed By: #### 2 4323-8, 3039-3 ####[facility] LABORATORYCLIA [id number] [place] [address] [place] Calcium [Mass/Vol] 8.6 mg/dL Normal 8.5-10.2 [facility] Comment on above: Order Comment: Speci men Type: BLOOD SPECIMENOrdering Facility: [facility] Address: [address] [place] [address] Performed By: #### 2 4323-8, 3039-3 ####[facility]ORATORYCLIA [id number] [place] [address] [place] Chloride [Moles/Vol] 107 mmol/L High 97-105 [facility] Comment on above: Order Comment: Speci men Type: BLOOD SPECIMENOrdering Facility: [facility] Address: [address] Performed By: #### 2 4323-8, 3039-3 ####[facility] LABORATORYCLIA [id number] [place] [address] [place] CO2 [Moles/Vol] 22 mmol/L Normal 22-30 [facility] Comment on above: Order Comment: Speci men Type: BLOOD SPECIMENOrdering Facility: [facility] Address: [address] Performed By: #### 2 4323-8, 3 ####[facility]ORATORYCLIA [id number] [place], [place] [address] [place] [address] [place] [facility] Creatinine [Mass/Vol] 0.87 mg/dL Normal 0.58-0.96 [facility] Comment on above: Order Comment: Speci men Type: BLOOD SPECIMENOrdering Facility: [facility] Address: [address] Performed By: #### 2 4323-8, 3 ####[facility] LABORATORYCLIA [id number] [address] Creatinine and Glomerular filtration rate.predicted panel (S/P/Bld) 90 mL/min/1.73m??? Normal >=60 [facility] Comment on above: Order Comment: Speci men Type: BLOOD SPECIMENOrdering Facility: [facility] Address: [address] [address] Result Comment: Jessica mated Glomerular Filtration Rate [...] GFR. Performed By: #### 2 4323-8, 3040-3 ####[facility] PARKIA [id number] [place] [address] [place] Glucose [Mass/Vol] 87 mg/dL Normal 74-99 [facility] Comment on above: Order Comment: Speci men Type: BLOOD SPECIMENOrdering Facility: [facility] Address: [address] [place] [address] Result Comment: The [place] [employer] (ADA) provides guidance for cutoff [...] Standards of Medical Care in Diabetes 2016, [place] [employer]. Diabetes Care. 2016.39(Suppl 1). Performed By: #### 2 4323-8, 3039-3 ####[facility] PARKIA [id number] [place] [address] [place] Potassium [Moles/Vol] 3.5 mmol/L Low 3.7-5.1 [facility] Comment on above: Order Comment: Speci men Type: BLOOD SPECIMENOrdering Facility: [facility] Address: [address] [place] [address] Performed By: #### 2 4323-8, 3039-3 ####[facility] PARKIA [id number] [place] [address] [place] Protein [Mass/Vol] 6.6 g/dL Normal 6.3-8.0 [facility] Comment on above: Order Comment: Speci men Type: BLOOD SPECIMENOrdering Facility: [facility] Address: [address] [place] [address] Performed By: #### 2 4323-8, 3039-3 ####[facility] PARKIA [id number] [facility] [place] [address] [place] Sodium [Moles/Vol] 141 mmol/L Normal 136-144 [facility] Comment on above: Order Comment: Speci men Type: BLOOD SPECIMENOrdering Facility: [facility] Address: [address] [place] [address] Performed By: #### 2 4323-8, 3040-3 ####[facility] LABORATORYCLIA [id number] [facility] [place] [address] [place] Urea nitrogen [Mass/Vol] 9 mg/dL Normal 7- [facility] Comment on above: Order Comment: Speci men Type: BLOOD SPECIMENOrdering Facility: [facility] Address: [address] [place] [address] Performed By: #### 2 4323-8, 3040-3 ####[facility] LABORATORYCLIA [id number] [place] [address] [place] ECG COMPLETEon 11-05-2022 ECG COMPLETE Normal [facility] ED NOTEon 11-05-2022 ED NOTE HNO ID: [id number] Author: Neeta Mario RN Service: ? Author Type: Registered Nurse Type: ED Notes Filed: 11/05/2022 1:56 PM Note Text: Attempt to call report, Nurse taking patient is ROHIT. Will return call when nurse available. Normal [facility] ED NOTE HNO ID: [id number] Author: Neeta Mario RN Service: ? Author Type: Registered Nurse Type: ED Notes Filed: 11/05/2022 1:28 PM Note Text: Patient refused all daily meds but reglan due to nausea. Normal [facility] ED PROV NOTEon 11-05-2022 ED PROV NOTE Normal [facility] HISTORY PHYSICALon HISTORY PHYSICAL Normal [facility] Lipase SerPl-cCncon 11-06-19 23 Lipase [Catalytic activity/Vol] 38 U/L Normal 16-61 [facility] Comment on above: Order Comment: Speci men Type: BLOOD SPECIMENOrdering Facility: [facility] Address: [address] [facility] [place] [address] Performed By: #### 2 4323-8, 3040-3 ####[facility] LABORATORYCLIA [id number] [facility] [place] [address] [facility] NURSING PROGon 11-05-2022 NURSING PROG Normal [facility] XR ABD 2V SUPINE W UPR/DECUB /CTLon 11-05-2022 XR ABD 2V SUPINE W UPR/DECUB/CTL Normal [facility] US ABD RIGHT UPPER QUADRANTo n 11-04-2022 US ABD RIGHT UPPER QUADRANT Normal [facility] CBCon 11-02-2022 ABSOLUTE BAS 0.0 10*3/uL Normal 0.0-0.2 [facility] Comment on above: Performed By: #### A CBC, LIPA2, CMPF #### Testing performed at [address] [address] ABSOLUTE EOS 0.0 10*3/uL Normal 0.0-0.7 [facility] Comment on above: Performed By: #### A CBC, LIPA2, CMPF #### Testing performed at [address] [address] ABSOLUTE NEUTROPHIL COUNT 3.6 10*3/uL Normal 1.4-6.5 [facility] Comment on above: Performed By: #### A CBC, LIPA2, CMPF #### Testing performed at [address] [address] Basophils/100 WBC (Bld) 0.3 % Normal 0.0-2.0 [facility] Comment on above: Performed By: #### A CBC, LIPA2, CMPF #### Testing performed at [address] [address] DTYPE AUTO DIFF Normal [facility] Comment on above: Performed By: #### A CBC, LIPA2, CMPF #### Testing performed at [address] [address] Eosinophils/100 WBC (Bld) 0.1 % Normal 0.0-11.0 [facility] Comment on above: Performed By: #### A CBC, LIPA2, CMPF #### Testing performed at [address] [address] Lymphocytes (Bld) [#/Vol] 0.8 10*3/uL Low 1.2-3.4 [facility] Comment on above: Performed By: #### A CBC, LIPA2, CMPF #### Testing performed at [address] [address] Lymphocytes/100 WBC (Bld) 17.9 % Low 20.0-55.0 [facility] Comment on above: Performed By: #### A CBC, LIPA2, CMPF #### Testing performed at [address] [address] Monocytes (Bld) [#/Vol] 0.1 10*3/uL Normal 0.0-0.7 [facility] Comment on above: Performed By: #### A CBC, LIPA2, CMPF #### Testing performed at [address] [address] Monocytes/100 WBC (Bld) 2.3 % Normal 0.0-10.0 [facility] Comment on above: Performed By: #### A CBC, LIPA2, CMPF #### Testing performed at [address] [address] Neutrophils/100 WBC (Bld) 79.4 % High 37.0-75.0 [facility] Comment on above: Performed By: #### A CBC, LIPA2, CMPF #### Testing performed at [address] [address] Erythrocyte distribution width (RBC) [Ratio] 14.8 % High 11.5-14.5 [facility] Comment on above: Performed By: #### A CBC, LIPA2, CMPF #### Testing performed at [address] [address] Hematocrit (Bld) [Volume fraction] 38.8 % Normal 36.0-48.0 [facility] Comment on above: Performed By: #### A CBC, LIPA2, CMPF #### Testing performed at [address] [address] Hemoglobin (Bld) [Mass/Vol] 13.0 g/dL Normal 12.0-16.0 [facility] Comment on above: Performed By: #### A CBC, LIPA2, CMPF #### Testing performed at [address] [address] MCH (RBC) [Entitic mass] 30.6 pg Normal 26.0-35.0 [facility] Comment on above: Performed By: #### A CBC, LIPA2, CMPF #### Testing performed at [address] [address] MCHC (RBC) [Mass/Vol] 33.5 g/dL Normal 27.0-37.0 [facility] Comment on above: Performed By: #### A CBC, LIPA2, CMPF #### Testing performed at [address] [address] MCV (RBC) [Entitic vol] 91.2 fL Normal 80.0-100.0 [facility] Comment on above: Performed By: #### A CBC, LIPA2, CMPF #### Testing performed at [address] [address] Platelet mean volume (Bld) [Entitic vol] 9.9 fL Normal 7.4-11.0 [facility] Comment on above: Performed By: #### A CBC, LIPA2, CMPF #### Testing performed at [address] [address] Platelets (Bld) [#/Vol] 234 10*3/uL Normal 130-400 [facility] Comment on above: Performed By: #### A CBC, LIPA2, CMPF #### Testing performed at [address] [address] RBC (Bld) [#/Vol] 4.25 10*6/uL Normal 4.0-5.4 [facility] Comment on above: Performed By: #### A CBC, LIPA2, CMPF #### Testing performed at [address] [address] WBC (Bld) [#/Vol] 4.5 10*3/uL Normal 3.6-11.0 [facility] Comment on above: Performed By: #### A CBC, LIPA2, CMPF #### Testing performed at [facility] [address] [place] [address] CBC, EDIF, PLATELETon 2022 ABSOLUTE BASOPHIL COUNT 0.0 10*3/uL 0.0 - 0.2 10*3/uL [facility] Basophils/100 WBC (Bld) 0.3 % 0.0 - 2.0 % [facility] Differential cell count method Nom (Bld) AUTO DIFF % [facility] Eosinophils (Bld) [#/Vol] 0.0 10*3/uL 0.0 - 0.7 10*3/uL [facility] Eosinophils/100 WBC (Bld) 0.1 % 0.0 - 11.0 % [facility] Erythrocyte distribution width (RBC) [Ratio] 14.8 % High 11.5 - 14.5 % [facility] Hematocrit (Bld) [Volume fraction] 38.8 % 36.0 - 48.0 % [facility] Hemoglobin (Bld) [Mass/Vol] 13.0 g/dL [facility] Interpretation and review of laboratory results Abnormal [facility] Lymphocytes (Bld) [#/Vol] 0.8 10*3/uL Low 1.2 - 3.4 10*3/uL [facility] Lymphocytes/100 WBC (Bld) 17.9 % Low 20.0 - 55.0 % [facility] MCH (RBC) [Entitic mass] 30.6 pg 26.0 - 35.[address] [facility] MCHC (RBC) [Mass/Vol] 33.5 g/dL [facility] MCV (RBC) [Entitic vol] 91.2 fL [facility] Monocytes (Bld) [#/Vol] 0.1 10*3/uL 0.0 - 0.7 10*3/uL [facility] Monocytes/100 WBC (Bld) 2.3 % 0.0 - 10.0 % [facility] Neutrophils (Bld) [#/Vol] 3.6 10*3/uL 1.4 - 6.5 10*3/uL [facility] Neutrophils/100 WBC (Bld) 79.4 % High 37.0 - 75.0 % [facility] Platelet mean volume (Bld) [Entitic vol] 9.[address] [facility] Platelets (Bld) [#/Vol] 234 10*3/uL 130 - 400 10*3/uL [facility] RBC (Bld) [#/Vol] 4.25 10*6/uL 4.0 - 5.4 10*6/u L [facility] WBC (Bld) [#/Vol] 4.5 10*3/uL 3.6 - 11.0 10*3/u L [facility] CMP FASTINGon 11-02-2022 A:G RATIO 1.5 RATIO Normal [facility] Comment on above: Performed By: #### A CBC, LIPA2, CMPF #### Testing performed at [address] [address] ALBUMIN 4.4 G/dl Normal 3.5-5.0 [facility] Comment on above: Performed By: #### A CBC, LIPA2, CMPF #### Testing performed at [address] [address] ALP [Catalytic activity/Vol] 87 U/L Normal 38-126 [facility] Comment on above: Performed By: #### A CBC, LIPA2, CMPF #### Testing performed at [address] [address] ALT [Catalytic activity/Vol] 22 U/L Normal <35 [facility] Comment on above: Performed By: #### A CBC, LIPA2, CMPF #### Testing performed at [address] [address] AST [Catalytic activity/Vol] 34 U/L Normal 14-36 [facility] Comment on above: Performed By: #### A CBC, LIPA2, CMPF #### Testing performed at [address] [address] Bilirubin [Mass/Vol] 0.4 mg/dL Normal 0.2-1.3 [facility] Comment on above: Performed By: #### A CBC, LIPA2, CMPF #### Testing performed at [address] [address] Calcium [Mass/Vol] 9.0 mg/dL Normal 8.4-10.2 [facility] Comment on above: Performed By: #### A CBC, LIPA2, CMPF #### Testing performed at [address] [address] Chloride [Moles/Vol] 106 mmol/L Normal 98-107 [facility] Comment on above: Result Comment: Yessy plascencia note: Triglyceride levels of 600mg/dL or higher may positively bias chloride results by approximately 2.1 mmol Performed By: #### A CBC, LIPA2, CMPF #### Testing performed at [place] [id number] CO2 [Moles/Vol] 22 mmol/L Normal 22-30 [facility] Comment on above: Performed By: #### A CBC, LIPA2, CMPF #### [place] [address] Creatinine [Mass/Vol] 0.80 mg/dL Normal 0.70-1.20 [facility] Comment on above: Performed By: #### A CBC, LIPA2, CMPF #### Testing performed at [address] [address] EST. GFR, 106 ml/min/1.73sq.m Normal [facility] Comment on above: Performed By: #### A CBC, LIPA2, CMPF #### Testing performed at [place] [id number] EST. GFR,Non 88 ml/min/1.73sq.m [facility] Comment on above: Performed By: #### A CBC, LIPA2, CMPF #### Testing performed at [address] [address] GFR Information Average GFR for 30-39 years old = 107. Normal [facility] Comment on above: Result Comment: Shade Maker alejandra Kidney disease, GFR = <60. Kidney failure, GFR = <15. The GFR estimate is not adjusted for extreme body surface area or acute process, nor has it been validated for women or ethnic groups other than and . Performed By: #### A CBC, LIPA2, CMPF #### Testing performed at [place] [id number] Glucose [Mass/Vol] 119 mg/dL High 70-100 [facility] Comment on above: Result Comment: NORMAL <100 mg/dL PREDIABETES 101-126 mg/dL DIABETES 126 mg/dL or higher Performed By: #### A CBC, LIPA2, CMPF #### Testing performed at [address] [address] Potassium [Moles/Vol] 4.2 mmol/L Normal 3.5-5.1 [facility] Comment on above: Performed By: #### A CBC, LIPA2, CMPF #### Testing performed at [address] [address] Protein [Mass/Vol] 7.3 g/dL Normal 6.3-8.2 [facility] Comment on above: Performed By: #### A CBC, LIPA2, CMPF #### Testing performed at [address] [address] Sodium [Moles/Vol] 138 mmol/L Normal 137-145 [facility] Comment on above: Performed By: #### A CBC, LIPA2, CMPF #### Testing performed at [address] [address] Urea nitrogen [Mass/Vol] 8 mg/dL Normal 7-20 [facility] Comment on above: Performed By: #### A CBC, LIPA2, CMPF #### Testing performed at [address] [address] COMPREHENSIVE METABOLIC PANE Nestor 11-02-2022 Albumin [Mass/Vol] 4.4 G/dl 3.5 - 5.0 G/dl [facility] Albumin/Globulin [Mass ratio] 1.5 {ratio} RATIO [facility] ALP [Catalytic activity/Vol] 87 U/L [facility] ALT [Catalytic activity/Vol] 22 U/L NINF [facility] AST [Catalytic activity/Vol] 34 U/L [facility] Bilirubin [Mass/Vol] 0.4 mg/dL [facility] Calcium [Mass/Vol] 9.0 mg/dL [facility] Chloride [Moles/Vol] 106 mmol/L [facility] Comment on above: Please note: Triglyc eride levels of 600mg/dL or higher may positively bias chloride results by approximately 2.1 mmol CO2 [Moles/Vol] 22 mmol/L [facility] Creatinine [Mass/Vol] 0.80 mg/dL [facility] GFR COMMENT Average GFR for 30-39 years old = 107. [facility] Comment on above: Chronic Kidney disea se, GFR = <60. Kidney failure, GFR = <15. The GFR estimate is not adjusted for extreme body surface area or acute process, nor has it been validated for women or ethnic groups other than and . GFR/1.73 sq M.predicted among blacks MDRD (S/P/Bld) [Vol rate/Area] 106 mL/min/{1.73_m2} ml/min/1.73sq.m [facility] GFR/1.73 sq M.predicted among non-blacks MDRD (S/P/Bld) [Vol rate/Area] 88 mL/min/{1.73_m2} ml/min/1.73sq.m [facility] Glucose post fast [Mass/Vol] 119 mg/dL High [facility] Comment on above: NORMAL <100 mg/dL PREDIABETES 101-126 mg/dL DIABETES 126 mg/dL or higher Interpretation and review of laboratory results Abnormal [facility] Potassium [Moles/Vol] 4.2 mmol/L [facility] Protein [Mass/Vol] 7.3 g/dL [facility] Sodium [Moles/Vol] 138 mmol/L [facility] Urea nitrogen [Mass/Vol] 8 mg/dL [facility] HCG ( test) Ql (U)o n 11-02-[address] [facility] HCG QUALITATIVE, URINEon HCG ( test) Ql (U) Negative NEGATIVE [facility] LACTATE, BLOODon 11-02-2022 Lactate [Moles/Vol] 1.3 mmol/L 0.7 - 2.0 mmol/L [facility] LACTATE,BLOODon 11-02-2022 Lactate [Moles/Vol] 1.3 mmol/L Normal 0.7-2.0 [facility] Comment on above: Performed By: #### L [facility] #### [place] [address] LIPASEon 11-02-2022 Lipase [Catalytic activity/Vol] 105 U/L 23 - 300 U/L [facility] LIPASE,SERUMon 11-02-2022 LIPASE,SERUM 105 U/L Normal 23-300 [facility] Comment on above: Performed By: #### A CBC, LIPA2, CMPF #### Testing performed at [address] [address] No Panel Informationon 11-[address] [facility] URINALYSIS, MACROon 11-03-19 23 Bilirubin Ql (U) [facility] Clarity (U) CLEAR CLEAR [facility] Color (U) YELLOW YELLOW [facility] Glucose Test strip (U) [Mass/Vol] Negative NEGATIVE mg/dl [facility] Hemoglobin Ql (U) Negative NEGATIVE [facility] Interpretation and review of laboratory results Abnormal [facility] Ketones (U) [Mass/Vol] Negative NEGATIVE mg/dl [facility] Leukocyte esterase Test strip Ql (U) Negative NEGATIVE [facility] Nitrite Ql (U) Negative [facility]GATIVE [facility] pH (U) 8.5 [pH] High 5.0 - 7.0 [facility] Protein Ql (U) Negative NEGATIVE mg/dl [facility] Specific gravity (U) [Rel density] 1.020 1.010 - 1.025 [facility] Urobilinogen (U) [Mass/Vol] 1.0 mg/dL [facility] URINE HCG QUALon 11-02-2022 Beta HCG ( test) Ql (U) Negative Normal NEGATIVE [facility] Comment on above: Performed By: #### U HCGT, UMAC #### Testing performed at [address] [address] URINE MACROSCOPICon 11-03-19 23 Bilirubin Ql (U) Negative Normal NEGATIVE [facility] Comment on above: Performed By: #### U HCGT, UMAC #### Testing performed at [address] [address] Clarity (U) CLEAR Normal CLEAR [facility] Comment on above: Performed By: #### U HCGT, UMAC #### Testing performed at [address] [address] Color (U) YELLOW Normal YELLOW [facility] [facility] ([facility] Comment on above: Performed By: #### U HCGT, UMAC #### Testing performed at [address] [address] Glucose Ql (U) Negative Normal NEGATIVE [facility] Comment on above: Performed By: #### U HCGT, UMAC #### Testing performed at [address] [place] [address] pH (U) 8.5 [pH] High 5.0-7.0 [facility] Comment on above: Performed By: #### U HCGT, UMAC #### Testing performed at [address] [place] [address] URINE HEMOGLOBIN Negative Normal NEGATIVE [facility] Comment on above: Performed By: #### U HCGT, UMAC #### Testing performed at [address] [place] [address] URINE KETONE Negative Normal NEGATIVE [facility] Comment on above: Performed By: #### U HCGT, UMAC #### Testing performed at [address] [place] [address] URINE LEUKOTEST Negative Normal NEGATIVE [facility] Comment on above: Performed By: #### U HCGT, UMAC #### Testing performed at [address] [place] [address] URINE NITRATES Negative Normal NEGATIVE [facility] Comment on above: Performed By: #### U HCGT, UMAC #### Testing performed at [address] [address] URINE SPEC GRAVITY 1.020 Normal 1.010-1.025 [facility] Comment on above: Performed By: #### U HCGT, UMAC #### Testing performed at [address] [place] [address] URINE TOTAL PROTEIN Negative Normal NEGATIVE [facility] Comment on above: Performed By: #### U HCGT, UMAC #### Testing performed at [address] [address] Urobilinogen Qn (U) 1.0 {Munir'U}/dL Normal 0.2-1.0 [facility] Comment on above: Performed By: #### U HCGT, UMAC #### Testing performed at [facility] [address] [place] [address] CBC with Auto Differentialon 10-31-2022 Basophils (Bld) [#/Vol] [facility] Basophils/100 WBC (Bld) 0 % 0 - 2 % [facility] Eosinophils (Bld) [#/Vol] 0.03 10*3/uL [facility] Eosinophils/100 WBC (Bld) 0 % Low 1 - 4 % [facility] Erythrocyte distribution width (RBC) [Ratio] 12.8 % 11.8 - 14.4 % [facility] Hematocrit (Bld) [Volume fraction] 38.9 % 36.3 - 47.1 % [facility] Hemoglobin (Bld) [Mass/Vol] 13.3 g/dL 11.9 - 15.1 g/dL [facility] Immature granulocytes (Bld) [#/Vol] [facility] Immature granulocytes/100 WBC (Bld) 0 % 0 [facility] Interpretation and review of laboratory results Abnormal [facility] Lymphocytes/100 WBC (Bld) 19 % Low 24 - 43 % [facility] Lymphocytes/100 WBC (Bld) 1.46 % [facility] MCH (RBC) [Entitic mass] 30.6 pg 25.2 - 33.5 pg [facility] MCHC (RBC) [Mass/Vol] 34.2 g/dL 28.4 - 34.8 g/dL [facility] MCV (RBC) [Entitic vol] 89.4 fL 82.6 - 102.9 fL [facility] Monocytes/100 WBC (Bld) 5 % 3 - 12 % [facility] Monocytes/100 WBC (Bld) 0.41 % [facility] Neutrophils/100 WBC (Bld) 76 % High 36 - 65 % [facility] Nucleated RBC/100 WBC (Bld) [Ratio] 0.0 % 0.0 per 100 WBC [facility] Platelet mean volume (Bld) [Entitic vol] 12.0 fL 8.1 - 13.5 fL [facility] Platelets (Bld) [#/Vol] 246 10*3/uL [facility] RBC (Bld) [#/Vol] 4.35 10*6/uL 3.95 - 5.11 m/uL [facility] Segmented neutrophils/100 WBC (Bld) 5.66 % [facility] WBC other (Bld) [#/Vol] 7.6 [facility] CBC with Diffon 10-31-2022 Abs. Basophil <0.03 Normal 0.00-0.20 [facility] Comment on above: Performed By: #### L IP, CP, CDP #### [address] [place] [address] Park Interpreter: Baldomero Espinoza MD Abs.Imm.Granulocyte <0.03 Normal 0.00-0.30 [facility] Comment on above: Performed By: #### L IP, CP, CDP #### [address] [place], [facility] Park Interpreter: Baldomero Espinoza MD Abs.Neutrophil (Seg) 5.66 k/uL Normal 1.50-8.10 [facility] Comment on above: Performed By: #### L IP, CP, CDP #### [address] [place], [place] [id number] Park Interpreter: Baldomero Espinoza MD Basophils/100 WBC (Bld) 0 % Normal 0-2 [facility] Comment on above: Performed By: #### L IP, CP, CDP #### [address] [place], [place] [id number] Park Interpreter: Baldomero Espinoza MD Eosinophils (Bld) [#/Vol] 0.03 10*3/uL Normal 0.00-0.44 [facility] Comment on above: Performed By: #### L IP, CP, CDP #### [address] [place] [address] Park Interpreter: Baldomero Espinoza MD Eosinophils/100 WBC (Bld) 0 % Low 1-4 [facility] Comment on above: Performed By: #### L IP CP, CDP #### [facility] [address] [place], [place] [id number] Park Interpreter: Baldomero Espinoza MD Erythrocyte distribution width (RBC) [Ratio] 12.8 % Normal 11.8-14.4 [facility] Comment on above: Performed By: #### L IP, CP, CDP #### [address] [place], [facility] Park Interpreter: Baldomero Espinoza MD Hematocrit (Bld) [Volume fraction] 38.9 % Normal 36.3-47.1 [facility] Comment on above: Performed By: #### L KEVIN CP, CDP #### [address] [place], [facility] Park Interpreter: Baldomero Espinoza MD Hemoglobin (Bld) [Mass/Vol] 13.3 g/dL Normal 11.9-15.1 [facility] Comment on above: Performed By: #### L JUDITH BROWN, CDP #### [address] [place], [facility] Park Interpreter: Baldomero Espinoza MD Immature granulocytes/100 WBC (Bld) 0 % Normal 0 [facility] Comment on above: Performed By: #### L KEVIN CP, CDP #### [facility] [address] [place] [address] [place], [facility] Park Interpreter: Baldomero Espinoza MD Lymphocytes (Bld) [#/Vol] 1.46 10*3/uL Normal 1.10-3.70 [facility] Comment on above: Performed By: #### L IP, CP, CDP #### [address] [place], [place] [id number] Park Interpreter: Baldomero Espinoza MD Lymphocytes/100 WBC (Bld) 19 % Low 24-43 [facility] Comment on above: Performed By: #### L IP, CP, CDP #### [facility] [address] [place] [address] [address], [facility] Park Interpreter: Baldomero Espinoza MD MCH (RBC) [Entitic mass] 30.6 pg Normal 25.2-33.5 [facility] Comment on above: Performed By: #### L IP, CP, CDP #### [address] [place], [place] [address] Park Interpreter: Baldomero Espinoza MD MCHC (RBC) [Mass/Vol] 34.2 g/dL Normal 28.4-34.8 [facility] Comment on above: Performed By: #### L IP, CP, CDP #### [address] [place] [address] Park Interpreter: Baldomero Espinoza MD MCV (RBC) [Entitic vol] 89.4 fL Normal 82.6-102.9 [facility] Comment on above: Performed By: #### L IP, CP, CDP #### [address] [place], [place] [address] Park Interpreter: Baldomero Espinoza MD Monocytes (Bld) [#/Vol] 0.41 10*3/uL Normal 0.10-1.20 [facility] Comment on above: Performed By: #### L IP, CP, CDP #### [address] [place], [place] [address] Park Interpreter: Baldomero Espinoza MD Monocytes/100 WBC (Bld) 5 % Normal 3-12 [facility] Comment on above: Performed By: #### L IP, CP, CDP #### [address] [place], [facility] Park Interpreter: Baldomero Espinoza MD Neutrophil (Seg) 76 % High 36-65 [facility] Comment on above: Performed By: #### L IP, CP, CDP #### [facility] [address] [place] [address] Park Interpreter: Baldomero Espinoza MD NRBC Automated 0.0 per 100 WBC Normal 0.0 [facility] Comment on above: Performed By: #### L IP, CP, CDP #### [facility] [address] [place], [facility] Park Interpreter: Baldomero Espinoza MD Platelet mean volume (Bld) [Entitic vol] 12.0 fL Normal 8.1-13.5 [facility] Comment on above: Performed By: #### L KEVIN CP, CDP #### [address] [place], [facility] Park Interpreter: Baldomero Espinoza MD Platelets (Bld) [#/Vol] 246 10*3/uL Normal 138-453 [facility] Comment on above: Performed By: #### L KEVIN CP, CDP #### [address] [place], [facility] Park Interpreter: Baldomero Espinoza MD RBC (Bld) [#/Vol] 4.35 10*6/uL Normal 3.95-5.11 [facility] Comment on above: Performed By: #### L KEVIN CP, CDP #### [address] [place], [facility] Park Interpreter: Baldomero Espinoza MD WBC (Bld) [#/Vol] 7.6 10*3/uL Normal 3.5-11.3 [facility] Comment on above: Performed By: #### L KEVIN CP, CDP #### [address] [place] [address] Park Interpreter: Baldomero Espinoza MD [facility] Albumin [Mass/Vol] 4.5 g/dL 3.5 - 5.2 g/dL [facility] Albumin/Globulin [Mass ratio] 1.7 {ratio} 1.0 - 2.5 [facility] ALP [Catalytic activity/Vol] 76 U/L 35 - 104 U/L [facility] ALT [Catalytic activity/Vol] 14 U/L 5 - 33 U/L [facility] Anion gap [Moles/Vol] 12 mmol/L 9 - 17 mmol/L [facility] AST [Catalytic activity/Vol] 24 U/L NINF - 32 U/L [facility] Bilirubin [Mass/Vol] 0.3 mg/dL 0.3 - 1.2 mg/dL [facility] Calcium [Mass/Vol] 9.1 mg/dL 8.6 - 10.4 mg/dL [facility] Chloride [Moles/Vol] 106 mmol/L 98 - 107 mmol/L [facility] CO2 [Moles/Vol] 18 mmol/L Low 20 - 31 mmol/L [facility] Creatinine [Mass/Vol] 0.7 mg/dL 0.5 - 0.9 mg/dL [facility] GFR/1.73 sq M.predicted MDRD (S/P/Bld) [Vol rate/Area] - PINF [facility] Comment on above: These results are [...] [Mass/Vol] 87 mg/dL 70 - 99 mg/dL [facility] Interpretation and review of laboratory results Abnormal [facility] Potassium [Moles/Vol] 3.8 mmol/L 3.7 - 5.3 mmol/L [facility] Protein [Mass/Vol] 7.2 g/dL 6.4 - 8.3 g/dL [facility] Sodium [Moles/Vol] 136 mmol/L 135 - 144 mmol/L [facility] Urea nitrogen [Mass/Vol] 7 mg/dL 6 - 20 mg/dL [facility] Urea nitrogen/Creatinine [Mass ratio] 10 mg/mg 9 - 20 [facility] Comp Metabolic Profon 2022 Albumin [Mass/Vol] 4.5 g/dL Normal 3.5-5.2 [facility] Comment on above: Performed By: #### L IP, CP, CDP #### [facility] [address] [place] [address] Park Interpreter: Baldomero Espinoza MD Albumin/Glob Ratio 1.7 Normal 1.0-2.5 [facility] Comment on above: Performed By: #### L IP, CP, CDP #### [facility] [address] [place], [place] [address] Park Interpreter: Baldomero Espinoza MD Alkaline Phos 76 U/L Normal 35-104 [facility] Comment on above: Performed By: #### L IP, CP, CDP #### [facility] [address] [place], [place] [id number] Park Interpreter: Baldomero Espinoza MD ALT [Catalytic activity/Vol] 14 U/L Normal 5-33 [facility] Comment on above: Performed By: #### L IP, CP, CDP #### [facility] [address] [place], [place] [address]83 Park Interpreter: Baldomero Espinoza MD Anion gap [Moles/Vol] 12 mmol/L Normal 9-17 [facility] Comment on above: Performed By: #### L IP, CP, CDP #### [facility] [address] [place], [place] [address]83 Park Interpreter: Baldomero Espinoza MD AST [Catalytic activity/Vol] 24 U/L Normal <32 [facility] Comment on above: Performed By: #### L IP, CP, CDP #### [facility] [address] [place] [address] Park Interpreter: Baldomero Espinoza MD Bilirubin [Mass/Vol] 0.3 mg/dL Normal 0.3-1.2 [facility] Comment on above: Performed By: #### L IP, CP, CDP #### [facility] [address] [place], [place] [address]83 Park Interpreter: Baldomero Espinoza MD BUN/CRE Ratio 10 Normal 9-20 [facility] Comment on above: Performed By: #### L IP, CP, CDP #### [facility] [address] [place], [place] [address]83 Park Interpreter: Baldomero Espinoza MD Calcium [Mass/Vol] 9.1 mg/dL Normal 8.6-10.4 [facility] Comment on above: Performed By: #### L IP, CP, CDP #### [address] [place], [place] [address]83 Park Interpreter: Baldomero Espinoza MD Chloride [Moles/Vol] 106 mmol/L Normal 98-107 [facility] Comment on above: Performed By: #### L IP, CP, CDP #### [address] [place], [place] [address]683 Park Interpreter: Baldomero Espinoza MD CO2 [Moles/Vol] 18 mmol/L Low 20-31 [facility] Comment on above: Performed By: #### L IP, CP, CDP #### [facility] [address] [place] [address] [place], [place] 0502183 Park Interpreter: Baldomero Espinoza MD Creatinine [Mass/Vol] 0.7 mg/dL Normal 0.5-0.9 [facility] Comment on above: Performed By: #### L IP, CP, CDP #### [facility] [address] [place] [address] Park Interpreter: Baldomero Espinoza MD GFR/1.73 sq M.predicted among non-blacks MDRD (S/P/Bld) [Vol rate/Area] mL/min/{1.73_m2} Normal >60 [facility] Comment on above: Result Comment: [...] By: #### L IP CP, CDP #### [facility] [address] [place], [place] [address]783 Park Interpreter: Baldomero Espinoza MD Glucose [Mass/Vol] 87 mg/dL Normal 70-99 [facility] Comment on above: Performed By: #### L KEVIN CP, CDP #### [address] [place] [id number] Park Interpreter: Baldomero Espinoza MD Potassium [Moles/Vol] 3.8 mmol/L Normal 3.7-5.3 [facility] Comment on above: Performed By: #### L KEVIN CP, CDP #### [address] [place], [facility] Park Interpreter: Baldomero Espinoza MD Protein [Mass/Vol] 7.2 g/dL Normal 6.4-8.3 [facility] Comment on above: Performed By: #### L KEVIN CP, CDP #### [address] [place], [place] [id number] Park Interpreter: Baldomero Espinoza MD Sodium [Moles/Vol] 136 mmol/L Normal 135-144 [facility] Comment on above: Performed By: #### L IP CP, CDP #### [address] [place] [address] Park Interpreter: Baldomero Espinoza MD Urea nitrogen [Mass/Vol] 7 mg/dL Normal 6-20 [facility] Comment on above: Performed By: #### L IP, CP, CDP #### [facility] [address] [place] [address] Park Interpreter: Baldomero Espinoza MD Lipaseon 10-31-2022 Lipase [Catalytic activity/Vol] 43 U/L Normal 13-60 [facility] Comment on above: Performed By: #### L JUDITH BROWN, CDP #### [facility] [address] [place] [address] Park Interpreter: Baldomero Espinoza MD Lipase [Catalytic activity/Vol] 43 U/L 13 - 60 U/L [facility] Microscopic Urinalysison Bacteria LM Ql (Urine sed) 1+ Abnormal None [facility] Epithelial cells LM.HPF (Urine sed) [#/Area] 2 TO 5 [facility] Interpretation and review of laboratory results Abnormal [facility] RBC LM.HPF (Urine sed) [#/Area] None [facility] WBC LM.HPF (Urine sed) [#/Area] None [facility] No Panel Informationon 10-31 [facility] UA w/Reflex Cultureon 2022 Bilirubin, SemiQt,Ur Negative Normal NEG [facility] Comment on above: Performed By: #### U MICAO, UAX ####[facility] [place] , [place] [id number] Lab Director: Baldomero Espinoza MD Blood, Urine Negative Normal NEG [facility] Comment on above: Performed By: #### U MICAO, UAX ####[facility] [place] [address] Lab Director: Baldomero Espinoza MD Clarity (U) Clear Normal CLEAR [facility] Comment on above: Performed By: #### U MICAO, UAX ####[facility] [place] [address] Lab Director: Baldomero Espinoza MD Color (U) Yellow Normal YEL [facility] Comment on above: Performed By: #### U MICAO, UAX ####[address] [place] [address] Lab Director: Baldomero Espinoza MD Glucose Ql (U) Negative Normal NEG [facility] Comment on above: Performed By: #### U MICAO, UAX ####[address] [place] [address] Lab Director: Baldomero Espinoza MD Ketones Ql (U) Negative Normal NEG [facility] Comment on above: Performed By: #### U MICAO, UAX ####[address] [place] [address] Lab Director: Baldomero Espinoza MD Leukocyte esterase Test strip Ql (U) Negative Normal NEG [facility] Comment on above: Performed By: #### U MICAO, UAX ####[address] [place] [address] Lab Director: Baldomero Espinoza MD Nitrite,Ur Negative Normal NEG [facility] Comment on above: Performed By: #### U MICAO, UAX ####[address] [place] [address] Lab Director: Baldomero Espinoza MD PH,Ur 7.0 Normal 5.0-9.0 [facility] Comment on above: Performed By: #### U MICAO, UAX ####[address] [place] [address] Lab Director: Baldomero Espinoza MD Protein Ql (U) Negative Normal NEG [facility] Comment on above: Performed By: #### U MICAO, UAX ####[address] [place] [address] Lab Director: Baldomero Espinoza MD Spec. [place],Ur 1.015 Normal 1.010-1.020 [facility] Comment on above: Performed By: #### U SEAN, UAX ####[facility] [place] [address] lab Director: Baldomero Espinoza MD Urobilinogen,Ur Normal Normal 0.0-1.0 [facility] Comment on above: Performed By: #### U SEAN, UAX ####[facility] [place] [address] lab Director: Baldomero Espinoza MD Urinalysis with Reflex to Cu ltureon 10-31-2022 Bilirubin Ql (U) Negative NEGATIVE [facility] Clarity (U) Clear Clear [facility] Color (U) Yellow Yellow [facility] Glucose Test strip (U) [Mass/Vol] Negative NEGATIVE mg/dL [facility] Hemoglobin Auto test strip Ql (U) Negative NEGATIVE [facility] Ketones (U) [Mass/Vol] Negative NEGATIVE mg/dL [facility] Leukocyte esterase Test strip Ql (U) Negative NEGATIVE [facility] Nitrite Ql (U) Negative NEGATIVE [facility] pH (U) 7.0 [pH] 5.0 - 9.0 [facility] Protein (U) [Mass/Vol] Negative NEGATIVE mg/dL [facility] Specific gravity (U) [Rel density] 1.015 1.010 - 1.020 [facility] Urobilinogen Qn (U) Normal 0.0 - 1.0 EU/dL [facility] Urinalysis,Microon 3 Bacteria 1+ Abnormal NONE [facility] Comment on above: Performed By: #### U SEAN UAX ####[facility] [place] [address] lab Director: Baldomero Espinoza MD Epithelial cells LM Ql (Urine sed) 2 TO 5 Normal 0-25 [facility] Comment on above: Performed By: #### U SEAN UAX ####[facility] [place] [address] lab Director: Baldomero Espinoza MD Urine RBC's None Normal 0-2 [facility] Comment on above: Performed By: #### U MICAO, UAX ####[facility] [place] [address] lab Director: Baldomero Espinoza MD Urine WBC's None Normal 0-5 [facility] Comment on above: Performed By: #### U MICAO, UAX ####[facility] [place] , [place] [address] lab Director: Baldomero Espinoza MD XR LUMBAR [...] E Regalado MD 10/31/22 Final result Normal [facility] 1. No acute vertebral body [...] sacral arcuate lines appear intact. Pelvic phleboliths. [facility] JW Regalado, Luis E Ahumada MD - 10/31/2022 EXAMINATION: 5 XRAY VIEWS [...] 07/27/2021. 3. Prior cholecystectomy. Moderate stool burden. [facility] NanoViricidesNEW [facility] ClearView™ [facility] Radiology Study observation (narrative) [employer] XR LUMBAR SPINE (MIN 4 VIEWS )Ordered By: Luis E Regalado on 10-31-2022 [facility] [employer] Work Phone: CBC panel Auto (Bld)on 10-28 Erythrocyte distribution width (RBC) [Ratio] 13.2 % Normal 11.5-15.0 [facility] Comment on above: Order Comment: Speci men Type: BLOOD SPECIMENOrdering Facility: [facility] Address: [address] [place] [address] Performed By: #### 5 8410-2 ####[facility] PARKIA [id number] [address] [place] Hematocrit (Bld) [Volume fraction] 33.4 % Low 36.0-46.0 [facility] Comment on above: Order Comment: Speci men Type: BLOOD SPECIMENOrdering Facility: [facility] Address: [address] [place] [address] Performed By: #### 5 8410-2 ####[facility] [id number] [place] [address] [place] Hemoglobin (Bld) [Mass/Vol] 10.9 g/dL Low 11.5-15.5 [facility] Comment on above: Order Comment: Speci men Type: BLOOD SPECIMENOrdering Facility: [facility] Address: [address] [place] [address] Performed By: #### 5 8410-2 ####[facility] [id number] [place] [address] [place] MCH (RBC) [Entitic mass] 30.4 pg Normal 26.0-34.0 [facility] Comment on above: Order Comment: Speci men Type: BLOOD SPECIMENOrdering Facility: [facility] Address: [address] [place] [address] Performed By: #### 5 8410-2 ####[facility] [id number] [place] [address] [place] MCHC (RBC) [Mass/Vol] 32.6 g/dL Normal 30.5-36.0 [facility] Comment on above: Order Comment: Speci men Type: BLOOD SPECIMENOrdering Facility: [facility] Address: [address] [place] [address] Performed By: #### 5 8410-2 ####[facility]ORY[facility] [id number] [place] [address] [place] MCV (RBC) [Entitic vol] 93.3 fL Normal 80.0-100.0 [facility] Comment on above: Order Comment: Speci men Type: BLOOD SPECIMENOrdering Facility: [facility] Address: [address] [place] [address] Performed By: #### 5 8410-2 ####[facility]ORYCL[facility] [id number] [place] [address] [place] Nucleated RBC (Bld) [#/Vol] 10*3/uL Normal <0.01 [facility] Comment on above: Order Comment: Speci men Type: BLOOD SPECIMENOrdering Facility: [facility] Address: [address] [place] [address] Performed By: #### 5 8410-2 ####[facility] [id number] [place] [address] [place] Platelet mean volume (Bld) [Entitic vol] 11.7 fL Normal 9.0-12.7 [facility] Comment on above: Order Comment: Speci men Type: BLOOD SPECIMENOrdering Facility: [facility] Address: [address] [place] [address] Performed By: #### 5 8410-2 ####[facility] [id number] [place] [address] [place] Platelets (Bld) [#/Vol] 174 10*3/uL Normal 150-400 [facility] Comment on above: Order Comment: Speci men Type: BLOOD SPECIMENOrdering Facility: [facility] Address: [address] Performed By: #### 5 8410-2 ####[facility] [id number] [place] [address] [place] RBC (Bld) [#/Vol] 3.58 10*6/uL Low 3.90-5.20 [facility] Comment on above: Order Comment: Speci men Type: BLOOD SPECIMENOrdering Facility: [facility] Address: [address] Performed By: #### 5 8410-2 ####[facility] LABORATORYCLIA [id number] [facility] [place] [address] [place] WBC (Bld) [#/Vol] 4.62 10*3/uL Normal 3.70-11.00 [facility] Comment on above: Order Comment: Speci men Type: BLOOD SPECIMENOrdering Facility: [facility] Address: [address] [place], [place] [address] Performed By: #### 5 8410-2 ####[facility] LABORATORYCLIA [id number] [facility] [place] [place] [address] [place] CNDSon 10-28-2022 CNDS Normal [facility] Comprehensive metabolic 2000 panelon 10-28-2022 Albumin [Mass/Vol] 3.2 g/dL Low 3.9-4.9 [facility] Comment on above: Order Comment: Speci men Type: BLOOD SPECIMENOrdering Facility: [facility] Address: [address] [place], [place] [address] Performed By: #### 2 4323-8, , 2776- ####[facility] PARKIA [id number] [place] [address] [place] ALP [Catalytic activity/Vol] 54 U/L Normal 34-123 [facility] Comment on above: Order Comment: Speci men Type: BLOOD SPECIMENOrdering Facility: [facility] Address: [address] Performed By: #### 2 4323-8, , 2776- ####[facility]ORATORYCLIA [id number] [place] [address] [place] ALT [Catalytic activity/Vol] 11 U/L Normal 7-38 [facility] Comment on above: Order Comment: Speci men Type: BLOOD SPECIMENOrdering Facility: [facility] Address: [address] Performed By: #### 2 4323-8, , 2776- ####[facility]ORATORYCLIA [id number] [place] [address] [place] Anion gap [Moles/Vol] 9 mmol/L Normal 9-18 [facility] Comment on above: Order Comment: Speci men Type: BLOOD SPECIMENOrdering Facility: [facility] Address: [address] [place] [address] Performed By: #### 2 4323-8, , 2776-02 ####[facility] LABORATORYCLIA [id number] [place] [address] [place] AST [Catalytic activity/Vol] 23 U/L Normal 13-35 [facility] Comment on above: Order Comment: Speci men Type: BLOOD SPECIMENOrdering Facility: [facility] Address: [address] [place] [address] Performed By: #### 2 4323-8, , 2776-02 ####[facility] PARKIA [id number] [place] [address] [place] Bilirubin [Mass/Vol] 0.3 mg/dL Normal 0.2-1.3 [facility] Comment on above: Order Comment: Speci men Type: BLOOD SPECIMENOrdering Facility: [facility] Address: [address] [place] [address] Performed By: #### 2 4323-8, , 2776-02 ####[facility] [id number] [place] [address] [place] Calcium [Mass/Vol] 8.3 mg/dL Low 8.5-10.2 [facility] Comment on above: Order Comment: Speci men Type: BLOOD SPECIMENOrdering Facility: [facility] Address: [address] [place] [address] Performed By: #### 2 4323-8, , 2776-02 ####[facility]ORATORYCLIA [id number] [place] [address] [place] Chloride [Moles/Vol] 108 mmol/L High 97-105 [facility] Comment on above: Order Comment: Speci men Type: BLOOD SPECIMENOrdering Facility: [facility] Address: [address] Performed By: #### 2 4323-8, , 2776-02 ####[facility]ORATORYCLIA [id number] [facility] [place] [address] [place] CO2 [Moles/Vol] 21 mmol/L Low 22-30 [facility] Comment on above: Order Comment: Speci men Type: BLOOD SPECIMENOrdering Facility: [facility] Address: [address] Performed By: #### 2 4323-8, , 2776-02 ####[facility]ORATORYCLIA [id number] [place], [place] [address] [place] [address] [place] Creatinine [Mass/Vol] 0.76 mg/dL Normal 0.58-0.96 [facility] Comment on above: Order Comment: Speci men Type: BLOOD SPECIMENOrdering Facility: [facility] Address: [address] Performed By: #### 2 4323-8, , 2776-02 ####[facility] LABORATORYIA [id number] [place], [place] [address] [place] [address] [facility] Creatinine and Glomerular filtration rate.predicted panel (S/P/Bld) 106 mL/min/1.73m??? Normal >=60 [facility] Comment on above: Order Comment: Speci men Type: BLOOD SPECIMENOrdering Facility: [facility] Address: [address] Result Comment: Jessica mated Glomerular Filtration [...] Performed By: #### 2 4323-8, , 2776-02 ####[facility] [id number] [place] [address] [place] Glucose [Mass/Vol] 84 mg/dL Normal 74-99 [facility] Comment on above: Order Comment: Speci men Type: BLOOD SPECIMENOrdering Facility: [facility] Address: [address] [place] [address] Result Comment: The [place] [employer] (ADA) provides guidance for cutoff [...] Standards of Medical Care in Diabetes 2016, [place] [employer]. Diabetes Care. 2016.39(Suppl 1). Performed By: #### 2 4323-8, , 2776-02 ####[facility] [id number] [place] [address] [place] Potassium [Moles/Vol] 4.1 mmol/L Normal 3.7-5.1 [facility] Comment on above: Order Comment: Speci men Type: BLOOD SPECIMENOrdering Facility: [facility] Address: [address] [place] [address] Performed By: #### 2 4323-8, , 2776-02 ####[facility] [id number] [place] [address] [place] Protein [Mass/Vol] 5.2 g/dL Low 6.3-8.0 [facility] Comment on above: Order Comment: Speci men Type: BLOOD SPECIMENOrdering Facility: [facility] Address: [address] [place] [address] Performed By: #### 2 4323-8, , 2776-02 ####[facility] [id number] [place] [address] [place] Sodium [Moles/Vol] 138 mmol/L Normal 136-144 [facility] Comment on above: Order Comment: Speci men Type: BLOOD SPECIMENOrdering Facility: [facility] Address: [address] [place], [place] [address] Performed By: #### 2 4323-8, , 2776-02 ####[facility] [id number] [place] [address] [place] Urea nitrogen [Mass/Vol] 7 mg/dL Normal 7-21 [facility] Comment on above: Order Comment: Speci men Type: BLOOD SPECIMENOrdering Facility: [facility] Address: [address] [place] [address] Performed By: #### 2 4323-8, , 2776-02 ####[facility] [id number] [place] [address] [place] Magnesium SerPl-mCncon 10-28 Magnesium [Mass/Vol] 1.9 mg/dL Normal 1.7-2.3 [facility] Comment on above: Order Comment: Speci men Type: BLOOD SPECIMENOrdering Facility: [facility] Address: [address] [place], [place] [address] Performed By: #### 2 4323-8, , 2776-02 ####[facility] [id number] [place] [address] [place] Phosphate SerPl-mCncon 10-28 Phosphate [Mass/Vol] 3.2 mg/dL Normal 2.7-4.8 [facility] Comment on above: Order Comment: Speci men Type: BLOOD SPECIMENOrdering Facility: [facility] Address: [address] [place], [place] [address] Performed By: #### 2 4323-8, , 2776-02 ####[facility] LABORATORYIA [id number] [facility] [place] [address] [place] ANES POSTPROC EVALon 023 ANES POSTPROC EVAL Normal [facility] ANES PRE-OPon 10-27-2022 ANES PRE-OP Normal [facility] CBC panel Auto (Bld)on 10-27 Erythrocyte distribution width (RBC) [Ratio] 13.3 % Normal 11.5-15.0 [facility] Comment on above: Order Comment: Speci men Type: BLOOD SPECIMENOrdering Facility: [facility] Address: [address] [place] [address] Performed By: #### 5 8410-2 ####[facility] [id number] [address] [place] Hematocrit (Bld) [Volume fraction] 33.6 % Low 36.0-46.0 [facility] Comment on above: Order Comment: Speci men Type: BLOOD SPECIMENOrdering Facility: [facility] Address: [address] [place] [address] Performed By: #### 5 8410-2 ####[facility] [id number] [place] [address] [place] Hemoglobin (Bld) [Mass/Vol] 10.9 g/dL Low 11.5-15.5 [facility] Comment on above: Order Comment: Speci men Type: BLOOD SPECIMENOrdering Facility: [facility] Address: [address] [place] [address] Performed By: #### 5 8410-2 ####[facility] [id number] [place] [address] [place] MCH (RBC) [Entitic mass] 30.5 pg Normal 26.0-34.0 [facility] Comment on above: Order Comment: Speci men Type: BLOOD SPECIMENOrdering Facility: [facility] Address: [address] [place] [address] Performed By: #### 5 8410-2 ####[facility] [id number] [place] [address] [place] MCHC (RBC) [Mass/Vol] 32.4 g/dL Normal 30.5-36.0 [facility] Comment on above: Order Comment: Speci men Type: BLOOD SPECIMENOrdering Facility: [facility] Address: [address] [place] [address] Performed By: #### 5 8410-2 ####[facility] [id number] [place] [address] [place] MCV (RBC) [Entitic vol] 94.1 fL Normal 80.0-100.0 [facility] Comment on above: Order Comment: Speci men Type: BLOOD SPECIMENOrdering Facility: [facility] Address: [address] [place] [address] Performed By: #### 5 8410-2 ####[facility] [id number] [place] [address] [place] Nucleated RBC (Bld) [#/Vol] 10*3/uL Normal <0.01 [facility] Comment on above: Order Comment: Speci men Type: BLOOD SPECIMENOrdering Facility: [facility] Address: [address] [place] [address] Performed By: #### 5 8410-2 ####[facility] [id number] [place] [address] [place] Platelet mean volume (Bld) [Entitic vol] 11.7 fL Normal 9.0-12.7 [facility] Comment on above: Order Comment: Speci men Type: BLOOD SPECIMENOrdering Facility: [facility] Address: [address] [place] [address] Performed By: #### 5 8410-2 ####[facility] [id number] [place] [address] [place] Platelets (Bld) [#/Vol] 160 10*3/uL Normal 150-400 [facility] Comment on above: Order Comment: Speci men Type: BLOOD SPECIMENOrdering Facility: [facility] Address: [address] [place] [address] Performed By: #### 5 8410-2 ####[facility] [id number] [place] [address] [place] RBC (Bld) [#/Vol] 3.57 10*6/uL Low 3.90-5.20 [facility] Comment on above: Order Comment: Speci men Type: BLOOD SPECIMENOrdering Facility: [facility] Address: [address] [place] [address] Performed By: #### 5 8410-2 ####[facility] [id number] [place] [address] [facility] WBC (Bld) [#/Vol] 3.53 10*3/uL Low 3.70-11.00 [facility] Comment on above: Order Comment: Speci men Type: BLOOD SPECIMENOrdering Facility: [facility] Address: [address] [place] [address] Performed By: #### 5 8410-2 ####[facility] [id number] [place] [id number] [place] CONSULT PROGon 10-27-2022 CONSULT PROG Normal [facility] CONSULT PROG Normal [facility] Comprehensive metabolic 2000 panelon 10-27-2022 Albumin [Mass/Vol] 3.3 g/dL Low 3.9-4.9 [facility] Comment on above: Order Comment: Speci men Type: BLOOD SPECIMENOrdering Facility: [facility] Address: [address] [place] [address] Performed By: #### 2 4323-8, 04255-3, 2777-1 ####[facility] [id number] [place] [address] [place] ALP [Catalytic activity/Vol] 52 U/L Normal 34-123 [facility] Comment on above: Order Comment: Speci men Type: BLOOD SPECIMENOrdering Facility: [facility] Address: [address] [place] [address] Performed By: #### 2 4323-8, , 2776-02 ####[facility] LABORATORYCLIA [id number] [place] [address] [place] ALT [Catalytic activity/Vol] 14 U/L Normal 7-38 [facility] Comment on above: Order Comment: Speci men Type: BLOOD SPECIMENOrdering Facility: [facility] Address: [address] [place] [address] Performed By: #### 2 4323-8, , 2776-02 ####[facility] LABORATORYCLIA [id number] [place] [address] [place] Anion gap [Moles/Vol] 8 mmol/L Low 9-18 [facility] Comment on above: Order Comment: Speci men Type: BLOOD SPECIMENOrdering Facility: [facility] Address: [address] [place] [address] Performed By: #### 2 4323-8, , 2776-02 ####[facility] [id number] [place] [address] [place] AST [Catalytic activity/Vol] 28 U/L Normal 13-35 [facility] Comment on above: Order Comment: Speci men Type: BLOOD SPECIMENOrdering Facility: [facility] Address: [address] [place] [address] Performed By: #### 2 4323-8, , 2776-02 ####[facility] LABORATORYCLIA [id number] [place] [address] [place] Bilirubin [Mass/Vol] 0.2 mg/dL Normal 0.2-1.3 [facility] Comment on above: Order Comment: Speci men Type: BLOOD SPECIMENOrdering Facility: [facility] Address: [address] [place] [address] Performed By: #### 2 4323-8, , 2777-1 ####[facility] [id number] [place] [address] [place] Calcium [Mass/Vol] 8.1 mg/dL Low 8.5-10.2 [facility] Comment on above: Order Comment: Speci men Type: BLOOD SPECIMENOrdering Facility: [facility] Address: [address] [place] [address] Performed By: #### 2 4323-8, , 2776-02 ####[facility] [id number] [place] [address] [place] Chloride [Moles/Vol] 110 mmol/L High 97-105 [facility] Comment on above: Order Comment: Speci men Type: BLOOD SPECIMENOrdering Facility: [facility] Address: [address] [place] [address] Performed By: #### 2 4323-8, , 2776-02 ####[facility] [id number] [place] [address] [place] CO2 [Moles/Vol] 22 mmol/L Normal 22-30 [facility] Comment on above: Order Comment: Speci men Type: BLOOD SPECIMENOrdering Facility: [facility] Address: [address] [place] [address] Performed By: #### 2 4323-8, , 2776-02 ####[facility] [id number] [place] [address] [place] Creatinine [Mass/Vol] 0.70 mg/dL Normal 0.58-0.96 [facility] Comment on above: Order Comment: Speci men Type: BLOOD SPECIMENOrdering Facility: [facility] Address: [address] [place] [address] Performed By: #### 2 4323-8, , 2776-02 ####[facility] LABORATORYIA [id number] [place] [address] [place] Creatinine and Glomerular filtration rate.predicted panel (S/P/Bld) 117 mL/min/1.73m??? Normal >=60 [facility] Comment on above: Order Comment: Geraldo marrero Type: BLOOD SPECIMENOrdering Facility: [facility] Address: [address] [place], [place] [address] Result Comment: Jessica mated Glomerular Filtration Rate [...] 4323-8, , 2776-02 ####[facility] LABORATORYCLIA [id number] [facility] [place] [address] [place] Glucose [Mass/Vol] 89 mg/dL Normal 74-99 [facility] Comment on above: Order Comment: Geraldo marrero Type: BLOOD SPECIMENOrdering Facility: [facility] Address: [address] [place], [place] [address] Result Comment: The [place] Diabetes [employer] (ADA) provides guidance for cutoff [...] Standards of Medical Care in Diabetes 2016, [place] [employer]. Diabetes Care. 2016.39(Suppl 1). Performed By: #### 2 4323-8, 27936-7, 2776-02 ####[facility] LABORATORYCLIA [id number] [facility] [place] [address] [place] Potassium [Moles/Vol] 4.1 mmol/L Normal 3.7-5.1 [facility] Comment on above: Order Comment: Speci men Type: BLOOD SPECIMENOrdering Facility: [facility] Address: [address] [place] [address] Performed By: #### 2 4323-8, , 2776-02 ####[facility]ORATORYCLIA [id number] [place] [address] [place] Protein [Mass/Vol] 5.0 g/dL Low 6.3-8.0 [facility] Comment on above: Order Comment: Speci men Type: BLOOD SPECIMENOrdering Facility: [facility] Address: [address] [place] [address] Performed By: #### 2 4323-8, , 2776-02 ####[facility] [id number] [place] [address] [place] Sodium [Moles/Vol] 140 mmol/L Normal 136-144 [facility] Comment on above: Order Comment: Speci men Type: BLOOD SPECIMENOrdering Facility: [facility] Address: [address] [place] [address] Performed By: #### 2 4323-8, , 2776-02 ####[facility] [id number] [place] [address] [place] Urea nitrogen [Mass/Vol] 5 mg/dL Low 7-21 [facility] Comment on above: Order Comment: Speci men Type: BLOOD SPECIMENOrdering Facility: [facility] Address: [address] [place], [place] [address] Performed By: #### 2 4323-8, , 2776-02 ####[facility] LABORATORYIA [id number] [place] [address] [place] Magnesium SerPl-mCncon 10-27 Magnesium [Mass/Vol] 1.9 mg/dL Normal 1.7-2.3 [facility] Comment on above: Order Comment: Speci men Type: BLOOD SPECIMENOrdering Facility: [facility] Address: [address] [place] [address] [place] [id number] Performed By: #### 2 4323-8, , 2776-02 ####[facility]ORATORYCLIA [id number] [facility] [place] [address] [place] NUTRITIONon 10-27-2022 NUTRITION Normal [facility] Phosphate SerPl-mCncon 10-27 Phosphate [Mass/Vol] 3.1 mg/dL Normal 2.7-4.8 [facility] Comment on above: Order Comment: Speci men Type: BLOOD SPECIMENOrdering Facility: [facility] Address: [address] [place] [address] Performed By: #### 2 4323-8, , 2776-02 ####[facility]ORATORYCLIA [id number] [facility] [place] [address] [place] Upper GI endoscopyon 023 Upper GI endoscopy Normal [facility] CASE MGT INIT ASSESon 2022 CASE MGT INIT [facility] CBC panel Auto (Bld)on 10-26 Erythrocyte distribution width (RBC) [Ratio] 13.2 % Normal 11.5-15.0 [facility] Comment on above: Order Comment: Speci men Type: BLOOD SPECIMENOrdering Facility: [facility] Address: [address] [place] [address] Performed By: #### 5 8410-2 ####[facility] LABORATORYCLIA [id number] [facility] [id number] [place] Hematocrit (Bld) [Volume fraction] 34.9 % Low 36.0-46.0 [facility] Comment on above: Order Comment: Speci men Type: BLOOD SPECIMENOrdering Facility: [facility] Address: [address] [place] [address] Performed By: #### 5 8410-2 ####[facility]ORATORYIA [id number] [facility] [place] [address] [place] Hemoglobin (Bld) [Mass/Vol] 11.1 g/dL Low 11.5-15.5 [facility] Comment on above: Order Comment: Speci men Type: BLOOD SPECIMENOrdering Facility: [facility] Address: [address] [place] [address] Performed By: #### 5 8410-2 ####[facility] [id number] [address] STATES OF [facility] MCH (RBC) [Entitic mass] 30.9 pg Normal 26.0-34.0 [facility] Comment on above: Order Comment: Speci men Type: BLOOD SPECIMENOrdering Facility: [facility] Address: [address] [place] [address] Performed By: #### 5 8410-2 ####[facility] [id number] [address] [place] MCHC (RBC) [Mass/Vol] 31.8 g/dL Normal 30.5-36.0 [facility] Comment on above: Order Comment: Speci men Type: BLOOD SPECIMENOrdering Facility: [facility] Address: [address] [place] [address] Performed By: #### 5 8410-2 ####[facility] [id number] [address] [place] MCV (RBC) [Entitic vol] 97.2 fL Normal 80.0-100.0 [facility] Comment on above: Order Comment: Speci men Type: BLOOD SPECIMENOrdering Facility: [facility] Address: [address] [place] [address] Performed By: #### 5 8410-2 ####[facility] [id number] [place] Nucleated RBC (Bld) [#/Vol] 10*3/uL Normal <0.01 [facility] Comment on above: Order Comment: Speci men Type: BLOOD SPECIMENOrdering Facility: [facility] Address: [address] [place] [address] Performed By: #### 5 8410-2 ####[facility] LABORATORYCLIA [id number] [facility] [place] [address] [place] Platelet mean volume (Bld) [Entitic vol] 11.9 fL Normal 9.0-12.7 [facility] Comment on above: Order Comment: Speci men Type: BLOOD SPECIMENOrdering Facility: [facility] Address: [address] [place] [address] Performed By: #### 5 8410-2 ####[facility]ATORYIA [id number] [facility] [place] [address] [place] Platelets (Bld) [#/Vol] 181 10*3/uL Normal 150-400 [facility] Comment on above: Order Comment: Speci men Type: BLOOD SPECIMENOrdering Facility: [facility] Address: [address] [place] [address] Performed By: #### 5 8410-2 ####[facility] [id number] [facility] [id number] [place] RBC (Bld) [#/Vol] 3.59 10*6/uL Low 3.90-5.20 [facility] Comment on above: Order Comment: Speci men Type: BLOOD SPECIMENOrdering Facility: [facility] Address: [address] [place], [place] [address] Performed By: #### 5 8410-2 ####[facility] [id number] [facility] [id number] [place] WBC (Bld) [#/Vol] 3.44 10*3/uL Low 3.70-11.00 [facility] Comment on above: Order Comment: Speci men Type: BLOOD SPECIMENOrdering Facility: [facility] Address: [address] [place], [place] [id number] Performed By: #### 5 8410-2 ####[facility] LABORATORYIA [id number] [facility] [place] [place] [address] [place] CONSULTon 10-26-2022 CONSULT Normal [facility] Comprehensive metabolic 2000 panelon 10-26-2022 Albumin [Mass/Vol] 3.3 g/dL Low 3.9-4.9 [facility] Comment on above: Order Comment: Speci men Type: BLOOD SPECIMENOrdering Facility: [facility] Address: [address] [place] [address] Performed By: #### 3 016-3, 05908-3, 11649-4, 2776- ####[facility] LABORATORYCLIA [id number] [place] [address] [place] ALP [Catalytic activity/Vol] 52 U/L Normal 34-123 [facility] Comment on above: Order Comment: Speci men Type: BLOOD SPECIMENOrdering Facility: [facility] [facility] Address: [address] [place] [address] Performed By: #### 3 016-3, 56838-0, 78491-3, 2776-02 ####[facility]ORATORYCLIA [id number] [place] [address] [place] ALT [Catalytic activity/Vol] 15 U/L Normal 7-38 [facility] Comment on above: Order Comment: Speci men Type: BLOOD SPECIMENOrdering Facility: [facility] Address: [address] [place] [address] Performed By: #### 3 016-3, 70796-8, 03566-5, 2776-02 ####[facility]ORATORYCLIA [id number] [place] [address] [place] Anion gap [Moles/Vol] 9 mmol/L Normal 9-18 [facility] Comment on above: Order Comment: Speci men Type: BLOOD SPECIMENOrdering Facility: [facility] Address: [address] [place] [address] Performed By: #### 3 016-3, 58847-2, 72796-5, 2776-02 ####[facility]ORATORYCLIA [id number] [place] [address] [place] AST [Catalytic activity/Vol] 30 U/L Normal 13-35 [facility] Comment on above: Order Comment: Speci men Type: BLOOD SPECIMENOrdering Facility: [facility] Address: [address] [address] Performed By: #### 3 016-3, 34979-2, , 2776-02 ####[facility]ORATORYCLIA [id number] [place] [address] [place] Bilirubin [Mass/Vol] 0.4 mg/dL Normal 0.2-1.3 [facility] Comment on above: Order Comment: Speci men Type: BLOOD SPECIMENOrdering Facility: [facility] Address: [address] [address] Performed By: #### 3 016-3, 98858-1, , 2776-02 ####[facility]ARK[facility] [id number] [place] [address] [place] Calcium [Mass/Vol] 8.3 mg/dL Low 8.5-10.2 [facility] Comment on above: Order Comment: Speci men Type: BLOOD SPECIMENOrdering Facility: [facility] Address: [address] [place] [address] Performed By: #### 3 016-3, , , 2776-02 ####[facility] [id number] [place] [address] [place] Chloride [Moles/Vol] 110 mmol/L High 97-105 [facility] Comment on above: Order Comment: Speci men Type: BLOOD SPECIMENOrdering Facility: [facility] Address: [address] [address] Performed By: #### 3 016-3, 38692-5, , 2776-02 ####[facility] [id number] [place] [address] [place] CO2 [Moles/Vol] 20 mmol/L Low 22-30 [facility] Comment on above: Order Comment: Speci men Type: BLOOD SPECIMENOrdering Facility: [facility] Address: [address] [id number] Performed By: #### 3 016-3, 89267-0, 10116-9, 2776-02 ####[facility]ORATORYCLIA [id number] [facility] [place] [address] [place] Creatinine [Mass/Vol] 0.73 mg/dL Normal 0.58-0.96 [facility] Comment on above: Order Comment: Specmichael men Type: BLOOD SPECIMENOrdering Facility: [facility] Address: [address] [address] Performed By: #### 3 016-3, 33950-7, , 2776-02 ####[facility] LABORATORYIA [id number] [address] [place] Creatinine and Glomerular filtration rate.predicted panel (S/P/Bld) 112 mL/min/1.73m??? Normal >=60 [facility] Comment on above: Order Comment: Geraldo marrero Type: BLOOD SPECIMENOrdering Facility: [facility] Address: [address] [address] Result Comment: Jessica mated Glomerular Filtration Rate [...] actual GFR. Performed By: #### 3 016-3, 94612-5, , 2776-02 ####[facility]ORATORYCLIA [id number] [facility] [place] [address] [place] Glucose [Mass/Vol] 83 mg/dL Normal 74-99 [facility] Comment on above: Order Comment: Lyssai [facility] Type: BLOOD SPECIMENOrdering Facility: [facility] Address: [address] [address] Result Comment: The [place] Diabetes Association (ADA) provides guidance for cutoff [...] Standards of Medical Care in Diabetes 2016, [place] [employer]. Diabetes Care. 2016.39(Suppl 1). Performed By: #### 3 016-3, 41784-9, 91523-7, 2776-02 ####[facility]ITALCLIA [id number] [place] [address] [place] Potassium [Moles/Vol] 4.2 mmol/L Normal 3.7-5.1 [facility] Comment on above: Order Comment: Speci men Type: BLOOD SPECIMENOrdering Facility: [facility] Address: [address] [place] [address] Performed By: #### 3 016-3, 77162-0, , 2776-02 ####[facility] [id number] [place] [address] [place] Protein [Mass/Vol] 5.0 g/dL Low 6.3-8.0 [facility] Comment on above: Order Comment: Speci men Type: BLOOD SPECIMENOrdering Facility: [facility] Address: [address] [address] Performed By: #### 3 016-3, 82077-9, , 2776-02 ####[facility] [id number] [place] [address] [place] Sodium [Moles/Vol] 139 mmol/L Normal 136-144 [facility] Comment on above: Order Comment: Speci men Type: BLOOD SPECIMENOrdering Facility: [facility] Address: [address] [address] Performed By: #### 3 016-3, 17455-6, 27508-7, 2776-02 ####[facility] [id number] [place] [address] [place] Urea nitrogen [Mass/Vol] 5 mg/dL Low 7-21 [facility] Comment on above: Order Comment: Speci men Type: BLOOD SPECIMENOrdering Facility: [facility] Address: [address] [place] [address] Performed By: #### 3 016-3, 94152-6, 35046-7, 2776-02 ####[facility] [id number] [place] [address] [place] Magnesium SerPl-ncon 10-26 Magnesium [Mass/Vol] 1.9 mg/dL Normal 1.7-2.3 [facility] Comment on above: Order Comment: Speci men Type: BLOOD SPECIMENOrdering Facility: [facility] Address: [address] [place] [address] Performed By: #### 3 016-3, 72699-4, 20093-0, 2776-02 ####[facility] [id number] [place] [address] [place] Phosphate SerPl-mCncon 10-26 Phosphate [Mass/Vol] 4.3 mg/dL Normal 2.7-4.8 [facility] Comment on above: Order Comment: Speci men Type: BLOOD SPECIMENOrdering Facility: [facility] Address: [address] [place] [address] Performed By: #### 3 016-3, 10986-7, 89101-9, 2776-02 ####[facility] [id number] [place] [address] [place] TSH SerPl-aCncon 10-26-2022 TSH Qn 0.712 m[IU]/L Normal 0.270-4.200 [facility] Comment on above: Order Comment: Speci men Type: BLOOD SPECIMENOrdering Facility: [facility] Address: [address] [place] [address] Result Comment: If t he patient is , TSH reference range varies by gestational period:First Trimester (weeks 9-12): 0.180-2.990 mIU/LSecond Trimester: 0.110-3.980 mIU/LThird Trimester: 0.480-4.710 mIU/Lisa Johnson et al. A Practical Approach for the Verifications and Determination of Site- and Trimester-Specific Reference Intervals for Thyroid Function tests in . Thyroid, 2019:29:3:412-420. Claus E, et al. 2017 Guidelines of the [place] Thyroid Association for the Diagnosis and Management of Thyroid Disease during and the . Thyroid, 2017:27:3:315-389. Performed By: #### 3 016-3, 42621-7, 17791-1, 2777-1 ####[facility] LABORATORYCLIA [id number] [facility] [place] [address] [place] CBC W Auto Differential pane l (Bld)on 10-25-2022 Basophils (Bld) [#/Vol] 0.04 10*3/uL Normal <0.11 [facility] Comment on above: Order Comment: Speci men Type: BLOOD SPECIMENOrdering Facility: [facility] Address: [address] [address] Performed By: #### 5 7021-8 ####[facility] LABORATORYIA [id number] [place] [address] [place] Basophils/100 WBC (Bld) 1.1 % Normal [facility] Comment on above: Order Comment: Speci men Type: BLOOD SPECIMENOrdering Facility: [facility] Address: [address] [address] Performed By: #### 5 7021-8 ####[facility] LABORATORYIA [id number] [place] [address] [place] Differential cell count method Nom (Bld) Auto Normal [facility] Comment on above: Order Comment: Speci men Type: BLOOD SPECIMENOrdering Facility: [facility] Address: [address] [address] Performed By: #### 5 7021-8 ####[facility]ORATORYCLIA [id number] [place] [address] [place] Eosinophils (Bld) [#/Vol] 0.07 10*3/uL Normal <0.46 [facility] Comment on above: Order Comment: Speci men Type: BLOOD SPECIMENOrdering Facility: [facility] Address: [address] [place] [address] Performed By: #### 5 7021-8 ####[facility]ORATORYCLIA [id number] [place] [address] [place] Eosinophils/100 WBC (Bld) 1.9 % Normal [facility] Comment on above: Order Comment: Speci men Type: BLOOD SPECIMENOrdering Facility: [facility] Address: [address] [address] Performed By: #### 5 7021-8 ####[facility]ORATORYCLIA [id number] [address] [place] Erythrocyte distribution width (RBC) [Ratio] 13.0 % Normal 11.5-15.0 [facility] Comment on above: Order Comment: Speci men Type: BLOOD SPECIMENOrdering Facility: [facility] Address: [address] [place] [address] Performed By: #### 5 7021-8 ####[facility]ORATORYCLIA [id number] [place] [address] [place] Hematocrit (Bld) [Volume fraction] 39.5 % Normal 36.0-46.0 [facility] Comment on above: Order Comment: Speci men Type: BLOOD SPECIMENOrdering Facility: [facility] Address: [address] [place] [address] Performed By: #### 5 7021-8 ####[facility]ATORYCLIA [id number] [place] [address] [place] Hemoglobin (Bld) [Mass/Vol] 13.1 g/dL Normal 11.5-15.5 [facility] Comment on above: Order Comment: Speci men Type: BLOOD SPECIMENOrdering Facility: [facility] Address: [address] [address] Performed By: #### 5 7021-8 ####[facility]ATORYCLIA [id number] [facility] [place] [address] [place] Immature granulocytes (Bld) [#/Vol] 10*3/uL Normal <0.10 [facility] Comment on above: Order Comment: Speci men Type: BLOOD SPECIMENOrdering Facility: [facility] Address: [address] [address] Performed By: #### 5 7021-8 ####[facility]ORATORYCLIA [id number] [address] Immature granulocytes/100 WBC (Bld) 0.3 % Normal [facility] Comment on above: Order Comment: Speci men Type: BLOOD SPECIMENOrdering Facility: [facility] Address: [address] [address] Performed By: #### 5 7021-8 ####[facility]ORATORYCLIA [id number] [address] [place] Lymphocytes (Bld) [#/Vol] 1.11 10*3/uL Normal 1.00-4.00 [facility] Comment on above: Order Comment: Speci men Type: BLOOD SPECIMENOrdering Facility: [facility] Address: [address] Performed By: #### 5 7021-8 ####[facility]ATORYCLIA [id number] [address] [place] Lymphocytes/100 WBC (Bld) 29.4 % Normal [facility] Comment on above: Order Comment: Speci men Type: BLOOD SPECIMENOrdering Facility: [facility] Address: [address] Performed By: #### 5 7021-8 ####[facility]ORATORYCLIA [id number] [address] MCH (RBC) [Entitic mass] 30.5 pg Normal 26.0-34.0 [facility] Comment on above: Order Comment: Speci men Type: BLOOD SPECIMENOrdering Facility: [facility] Address: [address] [address] Performed By: #### 5 7021-8 ####[facility]ORATORYIA [id number] [address] [place] MCHC (RBC) [Mass/Vol] 33.2 g/dL Normal 30.5-36.0 [facility] Comment on above: Order Comment: Speci men Type: BLOOD SPECIMENOrdering Facility: [facility] Address: [address] [address] Performed By: #### 5 7021-8 ####[facility] [id number] [address] STATES OF [facility] MCV (RBC) [Entitic vol] 92.1 fL Normal 80.0-100.0 [facility] Comment on above: Order Comment: Speci men Type: BLOOD SPECIMENOrdering Facility: [facility] Address: [address] [address] Performed By: #### 5 7021-8 ####[facility] [id number] [address] OF [facility] Monocytes (Bld) [#/Vol] 0.27 10*3/uL Normal <0.87 [facility] Comment on above: Order Comment: Speci men Type: BLOOD SPECIMENOrdering Facility: [facility] Address: [address] [address] Performed By: #### 5 7021-8 ####[facility] [id number] [address] Monocytes/100 WBC (Bld) 7.1 % Normal [facility] Comment on above: Order Comment: Speci men Type: BLOOD SPECIMENOrdering Facility: [facility] Address: [address] [address] Performed By: #### 5 7021-8 ####[facility]ORATORYCLIA [id number] [place] [address] [place] Neutrophils (Bld) [#/Vol] 2.28 10*3/uL Normal 1.45-7.50 [facility] Comment on above: Order Comment: Speci men Type: BLOOD SPECIMENOrdering Facility: [facility] Address: [address] [place] [address] Performed By: #### 5 7021-8 ####[facility]ORATORYCLIA [id number] [place] [address] [place] Neutrophils/100 WBC (Bld) 60.2 % Normal [facility] Comment on above: Order Comment: Speci men Type: BLOOD SPECIMENOrdering Facility: [facility] Address: [address] [address] Performed By: #### 5 7021-8 ####[facility] [id number] [place] [address] [place] Nucleated RBC (Bld) [#/Vol] 10*3/uL Normal <0.01 [facility] Comment on above: Order Comment: Speci men Type: BLOOD SPECIMENOrdering Facility: [facility] Address: [address] [place] [address] Performed By: #### 5 7021-8 ####[facility] [id number] [place] [address] [place] Nucleated RBC/100 WBC (Bld) [Ratio] 0.0 /100 WBC Normal [facility] Comment on above: Order Comment: Speci men Type: BLOOD SPECIMENOrdering Facility: [facility] Address: [address] [place] [address] Performed By: #### 5 7021-8 ####[facility]ATORYIA [id number] [place] [address] [place] Platelet mean volume (Bld) [Entitic vol] 11.4 fL Normal 9.0-12.7 [facility] Comment on above: Order Comment: Speci men Type: BLOOD SPECIMENOrdering Facility: [facility] Address: [address] [place] [address] Performed By: #### 5 7021-8 ####[facility] [id number] [place] [address] [facility] [place] Platelets (Bld) [#/Vol] 208 10*3/uL Normal 150-400 [facility] Comment on above: Order Comment: Speci men Type: BLOOD SPECIMENOrdering Facility: [facility] Address: [address] [place] [address] Performed By: #### 5 7021-8 ####[facility] [id number] [place] [address] [place] RBC (Bld) [#/Vol] 4.29 10*6/uL Normal 3.90-5.20 [facility] Comment on above: Order Comment: Speci men Type: BLOOD SPECIMENOrdering Facility: [facility] Address: [address] [place] [address] Performed By: #### 5 7021-8 ####[facility] [id number] [place] [address] [place] WBC (Bld) [#/Vol] 3.78 10*3/uL Normal 3.70-11.00 [facility] Comment on above: Order Comment: Speci men Type: BLOOD SPECIMENOrdering Facility: [facility] Address: [address] [place] [address] Performed By: #### 5 7021-8 ####[facility] [id number] [place] [address] [place] ABD/PEL W IVCONon 023 CT ABD/PEL W IVCON Normal [facility] Comprehensive metabolic 2000 panelon 10-25-2022 Albumin [Mass/Vol] 4.2 g/dL Normal 3.9-4.9 [facility] Comment on above: Order Comment: Speci men Type: BLOOD SPECIMENOrdering Facility: [facility] Address: [address] Performed By: #### 2 4323-8, 3040-3, ####[facility]ATORYCLIA [id number] [place] [address] [place] ALP [Catalytic activity/Vol] 70 U/L Normal 34-123 [facility] Comment on above: Order Comment: Speci men Type: BLOOD SPECIMENOrdering Facility: [facility] Address: [address] [address] Performed By: #### 2 4323-8, 0-3, ####[facility]ATORYCLIA [id number] [place] [address] [place] ALT [Catalytic activity/Vol] 21 U/L Normal 7-38 [facility] Comment on above: Order Comment: Speci men Type: BLOOD SPECIMENOrdering Facility: [facility] Address: [address] [address] Performed By: #### 2 4323-8, 3039-3, ####[facility]ATORYCLIA [id number] [place] [address] [place] Anion gap [Moles/Vol] 10 mmol/L Normal 9-18 [facility] Comment on above: Order Comment: Speci men Type: BLOOD SPECIMENOrdering Facility: [facility] Address: [address] [address] Performed By: #### 2 4323-8, 3, ####[facility]ATORYCLIA [id number] [place] [address] [place] AST [Catalytic activity/Vol] 38 U/L High 13-35 [facility] Comment on above: Order Comment: Speci men Type: BLOOD SPECIMENOrdering Facility: [facility] Address: [address] [address] Performed By: #### 2 4323-8, 3040-3, ####[facility]ATORYCLIA [id number] [place] [address] [place] Bilirubin [Mass/Vol] 0.3 mg/dL Normal 0.2-1.3 [facility] Comment on above: Order Comment: Speci men Type: BLOOD SPECIMENOrdering Facility: [facility] Address: [address] [place] [address] Performed By: #### 2 4323-8, 0-3, ####[facility]ORYIA [id number] [place] [address] [place] Calcium [Mass/Vol] 8.8 mg/dL Normal 8.5-10.2 [facility] Comment on above: Order Comment: Speci men Type: BLOOD SPECIMENOrdering Facility: [facility] Address: [address] [place] [address] Performed By: #### 2 4323-8, 3, ####[facility] [id number] [place] [address] [place] Chloride [Moles/Vol] 106 mmol/L High 97-105 [facility] Comment on above: Order Comment: Speci men Type: BLOOD SPECIMENOrdering Facility: [facility] Address: [address] [place] [address] Performed By: #### 2 4323-8, 3, ####[facility]ATORYIA [id number] [place] [address] [place] CO2 [Moles/Vol] 22 mmol/L Normal 22-30 [facility] Comment on above: Order Comment: Speci men Type: BLOOD SPECIMENOrdering Facility: [facility] Address: [address] [place] [address] Performed By: #### 2 4323-8, 3, ####[facility]ATORYIA [id number] [place] [address] [place] Creatinine [Mass/Vol] 0.82 mg/dL Normal 0.58-0.96 [facility] Comment on above: Order Comment: Geraldo marrero Type: BLOOD SPECIMENOrdering Facility: [facility] Address: [address] [id number] Performed By: #### 2 4323-8, 3040-3, ####[facility]ATORYCLIA [id number] [facility], [place] [address] [place] [address] [place] Creatinine and Glomerular filtration rate.predicted panel (S/P/Bld) 97 mL/min/1.73m??? Normal >=60 [facility] Comment on above: Order Comment: Geraldo marrero Type: BLOOD SPECIMENOrdering Facility: [facility] Address: [address] [id number] Result Comment: Jessica mated Glomerular Filtration Rate [...] GFR. Performed By: #### 2 4323-8, 0-3, ####[facility]ATORYCLIA [id number] [place] [address] [place] Glucose [Mass/Vol] 85 mg/dL Normal 74-99 [facility] Comment on above: Order Comment: Geraldo marrero Type: BLOOD SPECIMENOrdering Facility: [facility] Address: [address] [place] [id number] Result Comment: The [place] Diabetes Association (ADA) provides guidance for cutoff [...] Standards of Medical Care in Diabetes 2016, [place] [employer]. Diabetes Care. 2016.39(Suppl 1). Performed By: #### 2 4323-8, 0-3, ####[facility]ATORYCLIA [id number] [place] [address] [place] Potassium [Moles/Vol] 3.8 mmol/L Normal 3.7-5.1 [facility] Comment on above: Order Comment: Speci men Type: BLOOD SPECIMENOrdering Facility: [facility] Address: [address] Performed By: #### 2 4323-8, 3039-3, ####[facility] [id number] [place] [address] [place] Protein [Mass/Vol] 6.5 g/dL Normal 6.3-8.0 [facility] Comment on above: Order Comment: Speci men Type: BLOOD SPECIMENOrdering Facility: [facility] Address: [address] Performed By: #### 2 4323-8, 3039-3, ####[facility] [id number] [place] [address] [place] Sodium [Moles/Vol] 138 mmol/L Normal 136-144 [facility] Comment on above: Order Comment: Speci men Type: BLOOD SPECIMENOrdering Facility: [facility] Address: [address] Performed By: #### 2 4323-8, 0-3, ####[facility]ATORYIA [id number] [place] [address] [place] Urea nitrogen [Mass/Vol] 7 mg/dL Normal 7-21 [facility] Comment on above: Order Comment: Speci men Type: BLOOD SPECIMENOrdering Facility: [facility] Address: [address] Performed By: #### 2 4323-8, 3040-3, ####[facility] LABORATORYIA [id number] [facility] [place] [address] [place] D dimer FEU PPP-mCncon 10-25 Fibrin D-dimer FEU (PPP) [Mass/Vol] <190 Normal <500 [facility] Comment on above: Order Comment: Speci men Type: BLOOD SPECIMENOrdering Facility: [facility] Address: [address] Performed By: #### 4 8065-7 ####[facility] [id number] [place] [address] [place] ECG COMPLETEon 10-25-2022 ECG COMPLETE [facility] ED NOTEon 10-25-2022 ED NOTE HNO ID: [id number] Author: Anam Myers RN Service: ? Author Type: Registered Nurse Type: ED Notes Filed: 10/25/2022 8:19 AM Note Text: Pt unable to urinate sat this time. Aware urine sample is needed. Normal [facility] ED NOTE Normal [facility] ED PROV NOTEon 10-25-2022 ED PROV NOTE Normal [facility] HISTORY PHYSICALon HISTORY PHYSICAL Normal [facility] Lipase SerPl-cCncon 10-26-19 23 Lipase [Catalytic activity/Vol] 29 U/L Normal 16-61 [facility] Comment on above: Order Comment: Speci men Type: BLOOD SPECIMENOrdering Facility: [facility] Address: [address] [facility] [place] [address] Performed By: #### 2 4323-8, 3040-3, ####[facility] [id number] [facility].[place] [id number] [place] [facility] Magnesium [Mass/Vol] 1.9 mg/dL Normal 1.7-2.3 [facility] Comment on above: Order Comment: Speci men Type: BLOOD SPECIMENOrdering Facility: [facility] Address: [address] [place] [id number] Performed By: #### 2 4323-8, 3040-3, 15722-5 ####[facility] [id number] [place] [address] [place] NURSING PROGon 10-25-2022 NURSING PROG Normal [facility] Urinalysis complete panel (U )on 10-25-2022 Bilirubin Ql (U) Negative Normal Negative [facility] Comment on above: Order Comment: Speci men Type: URINE SPECIMENOrdering Facility: [facility] Address: [address] [place] [address] Performed By: #### 2 4356-8 ####[facility] [id number] [address] [place] Clarity (Unsp spec) Clear Normal Clear [facility] Comment on above: Order Comment: Speci men Type: URINE SPECIMENOrdering Facility: [facility] Address: [address] [place] [address] Performed By: #### 2 4356-8 ####[facility] [id number] [place] [address] [place] Color (U) Colorless Normal yellow [facility] Comment on above: Order Comment: Speci men Type: URINE SPECIMENOrdering Facility: [facility] Address: [address] [place] [address] Performed By: #### 2 4356-8 ####[facility] [id number] [place] [address] [place] Epithelial cells LM.HPF (Urine sed) [#/Area] Few Normal [facility] Comment on above: Order Comment: Speci men Type: URINE SPECIMENOrdering Facility: [facility] Address: [address] [place] [address] Performed By: #### 2 4356-8 ####[facility] [id number] [place] [address] [place] Glucose Test strip (U) [Mass/Vol] Negative Normal Trace, Negative [facility] Comment on above: Order Comment: Speci men Type: URINE SPECIMENOrdering Facility: [facility] Address: [address] [address] Performed By: #### 2 4356-8 ####[facility] [id number] [place] [address] [place] Hemoglobin Ql (U) Negative Normal Negative, Trace [facility] Comment on above: Order Comment: Speci men Type: URINE SPECIMENOrdering Facility: [facility] Address: [address] [address] Performed By: #### 2 4356-8 ####[facility] [id number] [place] [address] [place] Ketones Ql (U) Negative Normal Negative, Trace [facility] Comment on above: Order Comment: Speci men Type: URINE SPECIMENOrdering Facility: [facility] Address: [address] [place] [address] Performed By: #### 2 4356-8 ####[facility] [id number] [place] [address] [place] Leukocyte esterase Test strip Ql (U) Negative Normal Negative, 25 Patito/uL [facility] Comment on above: Order Comment: Speci men Type: URINE SPECIMENOrdering Facility: [facility] Address: [address] [place] [address] Performed By: #### 2 4356-8 ####[facility] [id number] [place] [address] [place] Nitrite Ql (U) Negative Normal Negative [facility] Comment on above: Order Comment: Speci men Type: URINE SPECIMENOrdering Facility: [facility] Address: [address] [place] [address] Performed By: #### 2 4356-8 ####[facility] [id number] [place] [address] [place] pH (U) 6.5 [pH] Normal 5.0-8.0 [facility] Comment on above: Order Comment: Speci men Type: URINE SPECIMENOrdering Facility: [facility] Address: [address] [address] Performed By: #### 2 4356-8 ####[facility] [id number] [place] [address] [place] Protein (U) [Mass/Vol] Negative Normal Trace, Negative [facility] Comment on above: Order Comment: Speci men Type: URINE SPECIMENOrdering Facility: [facility] Address: [address] [address] Performed By: #### 2 4356-8 ####[facility] [id number] [place] [address] [place] RBC LM.HPF (Urine sed) [#/Area] 0-3 /HPF Normal 0-3 /HPF [facility] Comment on above: Order Comment: Speci men Type: URINE SPECIMENOrdering Facility: [facility] Address: [address] [address] Performed By: #### 2 4356-8 ####[facility] [id number] [place] [address] [place] Specific gravity (U) [Rel density] 1.041 High 1.005-1.030 [facility] Comment on above: Order Comment: Speci men Type: URINE SPECIMENOrdering Facility: [facility] Address: [address] [address] Performed By: #### 2 4356-8 ####[facility] [id number] [place] [address] [place] Urobilinogen Ql (U) Normal Normal Negative [facility] Comment on above: Order Comment: Speci men Type: URINE SPECIMENOrdering Facility: [facility] Address: [address] [place] [address] Performed By: #### 2 4356-8 ####[facility] [id number] [place] [id number] [place] WBC LM.HPF (Urine sed) [#/Area] 0-5 /HPF Normal 0-5 /HPF [facility] Comment on above: Order Comment: Speci men Type: URINE SPECIMENOrdering Facility: [facility] Address: [place] [address] Performed By: #### 2 4356-8 ####[facility] [id number] [facility] [place] [address] [facility] XR ABDOMEN (2 VIEWS)on 10-24 XR [...] Kuldip Laughlin MD 10/23/22 Final result Normal [facility] CBC with Diffon 10-23-2022 Abs. Basophil 0.03 k/uL Normal 0.00-0.20 [facility] Comment on above: Performed By: #### L JUDITH BROWN, CDP #### [facility] [address] [place] [place] [address] Park Interpreter: Baldomero Espinoza MD Abs.Imm.Granulocyte <0.03 Normal 0.00-0.30 [facility] Comment on above: Performed By: #### L JUDITH BROWN, CDP #### [facility] [address] [place] [address] Park Interpreter: Baldomero Espinoza MD Abs.Neutrophil (Seg) 3.51 k/uL Normal 1.50-8.10 [facility] Comment on above: Performed By: #### L IPJUDITH, CDP #### [facility] [address] [place] [address] [address]. [place], [facility] Park Interpreter: Baldomero Espinoza MD Basophils/100 WBC (Bld) 1 % Normal 0-2 [facility] Comment on above: Performed By: #### L IP, CP, CDP #### [address] [place], [facility] Park Interpreter: Baldomero Espinoza MD Eosinophils (Bld) [#/Vol] 0.07 10*3/uL Normal 0.00-0.44 [facility] Comment on above: Performed By: #### L IP, CP, CDP #### [address] [place] [address] Park Interpreter: Baldomero Espinoza MD Eosinophils/100 WBC (Bld) 1 % Normal 1-4 [facility] Comment on above: Performed By: #### L IP, CP, CDP #### [address] [place], [place] [address] Park Interpreter: Baldoemro Espinoza MD Erythrocyte distribution width (RBC) [Ratio] 12.7 % Normal 11.8-14.4 [facility] Comment on above: Performed By: #### L IP, CP, CDP #### [address] [place], [facility] Park Interpreter: Baldomero Espinoza MD Hematocrit (Bld) [Volume fraction] 36.0 % Low 36.3-47.1 [facility] Comment on above: Performed By: #### L IP, CP, CDP #### [address] [place], [facility] Park Interpreter: Baldomero Espinoza MD Hemoglobin (Bld) [Mass/Vol] 12.2 g/dL Normal 11.9-15.1 [facility] Comment on above: Performed By: #### L IP, CP, CDP #### [address] [place], [facility] Park Interpreter: Baldomero Espinoza MD Immature granulocytes/100 WBC (Bld) 0 % Normal 0 [facility] Comment on above: Performed By: #### L IP, CP, CDP #### [facility] [address] [place] [address] Park Interpreter: Baldomero Espinoza MD Lymphocytes (Bld) [#/Vol] 2.05 10*3/uL Normal 1.10-3.70 [facility] Comment on above: Performed By: #### L IP, CP, CDP #### [address] [place] [address] Park Interpreter: Baldomero Espinoza MD Lymphocytes/100 WBC (Bld) 34 % Normal 24-43 [facility] Comment on above: Performed By: #### L IP, CP, CDP #### [address] [place], [facility] Park Interpreter: Baldomero Espinoza MD MCH (RBC) [Entitic mass] 30.8 pg Normal 25.2-33.5 [facility] Comment on above: Performed By: #### L IP, CP, CDP #### [address] [place], [place] [address] Park Interpreter: Baldomero Espinoza MD MCHC (RBC) [Mass/Vol] 33.9 g/dL Normal 28.4-34.8 [facility] Comment on above: Performed By: #### L IP, CP, CDP #### [address] [place], [place] [address] Park Interpreter: Baldomero Espinoza MD MCV (RBC) [Entitic vol] 90.9 fL Normal 82.6-102.9 [facility] Comment on above: Performed By: #### L IP, CP, CDP #### [address] [place] [address] Park Interpreter: Baldomero Espinoza MD Monocytes (Bld) [#/Vol] 0.44 10*3/uL Normal 0.10-1.20 [facility] Comment on above: Performed By: #### L IP, CP, CDP #### [facility] [address] [place], [place] [address] Park Interpreter: Baldomero Espinoza MD Monocytes/100 WBC (Bld) 7 % Normal 3-12 [facility] Comment on above: Performed By: #### L IP, CP, CDP #### [facility] [address] [place], [place] [address] Park Interpreter: Baldomero Espinoza MD Neutrophil (Seg) 57 % Normal 36-65 [facility] Comment on above: Performed By: #### L IP, CP, CDP #### [address] [place], [place] [address] Park Interpreter: Baldomero Espinoza MD NRBC Automated 0.0 per 100 WBC Normal 0.0 [facility] Comment on above: Performed By: #### L KEVIN CP, CDP #### [address] [place], [place] [address] Park Interpreter: Baldomero Espinoza MD Platelet mean volume (Bld) [Entitic vol] 11.1 fL Normal 8.1-13.5 [facility] Comment on above: Performed By: #### L IP CP, CDP #### [address] [place] [address] Park Interpreter: Baldomero Espinoza MD Platelets (Bld) [#/Vol] 226 10*3/uL Normal 138-453 [facility] Comment on above: Performed By: #### L IP, CP, CDP #### [facility] [address] [place], [place] [address] Park Interpreter: Baldomero Esipnoza MD RBC (Bld) [#/Vol] 3.96 10*6/uL Normal 3.95-5.11 [facility] Comment on above: Performed By: #### L IP, CP, CDP #### [facility] [address] [place], [place] [address] Park Interpreter: Baldomero Espinoza MD WBC (Bld) [#/Vol] 6.1 10*3/uL Normal 3.5-11.3 [facility] Comment on above: Performed By: #### L IP, CP, CDP #### [facility] [address] [place], [place] [address]83 Park Interpreter: Baldomero Espinoza MD Comp Metabolic Profon 2022 Albumin [Mass/Vol] 4.1 g/dL Normal 3.5-5.2 [facility] Comment on above: Performed By: #### L IP, CP, CDP #### [facility] [address] [place], [place] [address]83 Park Interpreter: Baldomero Espinoza MD Albumin/Glob Ratio 1.7 Normal 1.0-2.5 [facility] Comment on above: Performed By: #### L IP, CP, CDP #### [facility] [address] [place] [address] [address], [place] [address]83 Park Interpreter: Baldomero Espinoza MD Alkaline Phos 64 U/L Normal 35-104 [facility] Comment on above: Performed By: #### L IP, CP, CDP #### [facility] [address] [place], [place] [address]83 Park Interpreter: Baldomero Espinoza MD ALT [Catalytic activity/Vol] 19 U/L Normal 5-33 [facility] Comment on above: Performed By: #### L IP, CP, CDP #### [facility] [address] [place] [address] Park Interpreter: Baldomero Espinoza MD Anion gap [Moles/Vol] 11 mmol/L Normal 9-17 [facility] Comment on above: Performed By: #### L IP, CP, CDP #### [facility] [address] [place], [place] [address] Park Interpreter: Baldomero Espinoza MD AST [Catalytic activity/Vol] 33 U/L High <32 [facility] Comment on above: Performed By: #### L IP, CP, CDP #### [facility] [address] [place], [place] [address]83 Park Interpreter: Baldomero Espinoza MD Bilirubin [Mass/Vol] 0.5 mg/dL Normal 0.3-1.2 [facility] Comment on above: Performed By: #### L IP, CP, CDP #### [address] [place], [place] [address]83 Park Interpreter: Baldomero Espinoza MD BUN/CRE Ratio 14 Normal 9-20 [facility] Comment on above: Performed By: #### L IP, CP, CDP #### [facility] [address] [place] [address] [place], [place] [address]83 Park Interpreter: Baldomero Espinoza MD Calcium [Mass/Vol] 9.0 mg/dL Normal 8.6-10.4 [facility] Comment on above: Performed By: #### L IP, CP, CDP #### [address] [place], [place] [address]83 Park Interpreter: Baldomero Espinoza MD Chloride [Moles/Vol] 103 mmol/L Normal 98-107 [facility] Comment on above: Performed By: #### L IP, CP, CDP #### [facility] [address] [place], [place] [address]83 Park Interpreter: Baldomero Espinoza MD CO2 [Moles/Vol] 22 mmol/L Normal 20-31 [facility] Comment on above: Performed By: #### L IP, CP, CDP #### [facility] [address] [place], [place] [address]83 Park Interpreter: Baldomero Espinoza MD Creatinine [Mass/Vol] 0.7 mg/dL Normal 0.5-0.9 [facility] Comment on above: Performed By: #### L JUDITH BROWN, CDP #### [facility] [address] [place] [address] Park Interpreter: Baldomero Espinoza MD GFR/1.73 sq M.predicted among non-blacks MDRD (S/P/Bld) [Vol rate/Area] mL/min/{1.73_m2} Normal >60 [facility] Comment on above: Result Comment: [...] renal tubular secretion. Performed By: #### L JUDITH BROWN, CDP #### [address] [place], [place] [address]83 Park Interpreter: Baldomero Espinoza MD Glucose [Mass/Vol] 86 mg/dL Normal 70-99 [facility] Comment on above: Performed By: #### L JUDITH BROWN, CDP #### [address] [place], [place] [address]277483 Park Interpreter: Baldomero Espinoza MD Potassium [Moles/Vol] 3.4 mmol/L Low 3.7-5.3 [facility] Comment on above: Performed By: #### L JUDITH BROWN, CDP #### [facility] [address] [place] [address] Park Interpreter: Baldomero Espinoza MD Protein [Mass/Vol] 6.5 g/dL Normal 6.4-8.3 [facility] Comment on above: Performed By: #### L KEVIN CP, CDP #### [facility] [address] [place] [address] Park Interpreter: Baldomero Espinoza MD Sodium [Moles/Vol] 136 mmol/L Normal 135-144 [facility] Comment on above: Performed By: #### L JUDITH BROWN, ESTEFANIA #### [facility] [address] [place] [address] Park Interpreter: Baldomero Espinoza MD Urea nitrogen [Mass/Vol] 10 mg/dL Normal 6-20 [facility] Comment on above: Performed By: #### L JUDITH BROWN, CDP #### [facility] [address] [place] [address] Park Interpreter: Baldomero Espinoza MD HCG, ,Urineon 10-23 Beta HCG ( test) Ql (U) Negative Normal NEG [facility] Comment on above: Result Comment: Spec imens with hCG levels near the threshold of the test (25 mIU/mL) may give a negative or indeterminate result. In such cases, another test should be performed with a new specimen in 48-72 hours. If early is suspected clinically in this setting, correlation with quantitative serum b-hCG level is suggested. [facility] has confirmed the use of plasma for this test. This has not been cleared or approved by the U.S. Food and Drug Administration. The FDA has determined that such clearance is not necessary. Performed By: #### U HCG, UAMIC #### [facility] [address] [place] [address] Park Interpreter: Baldomero Espinoza MD Lactic Acidon 4 Lactate [Moles/Vol] 0.8 mmol/L Normal 0.5-2.2 [facility] Comment on above: Performed By: #### L ACTIC #### [facility] [address] [place] [address] Park Interpreter: Baldomero Espinoza MD Lipaseon 9 Lipase [Catalytic activity/Vol] 32 U/L Normal 13-60 [facility] Comment on above: Performed By: #### L JUDITH BROWN, CDP #### [facility] [address] [place] [address] [place] [address] Park Interpreter: Baldomero Espinoza MD Urinalysis w/ Microon 2022 Bacteria 1+ Abnormal NONE [facility] Comment on above: Performed By: #### U HCG, UAMIC ####[address] [place] [address] Lab Director: Baldomero Espinoza MD Bilirubin, SemiQt,Ur Negative Normal NEG [facility] Comment on above: Performed By: #### U HCG, UAMIC ####[address] , [place] [address] Lab Director: Baldomero Espinoza MD Blood, Urine Negative Normal NEG [facility] Comment on above: Performed By: #### U HCG, UAMIC ####[address] [place] [address] Lab Director: Baldomero Espinoza MD Clarity (U) Clear Normal CLEAR [facility] Comment on above: Performed By: #### U HCG, UAMIC ####[address] [place] [address] Lab Director: Baldomero Espinoza MD Color (U) Yellow Normal YEL [facility] Comment on above: Performed By: #### U HCG, UAMIC ####[address] , [place] 4[address] Lab Director: Baldomero Espinoza MD Epithelial cells LM Ql (Urine sed) 2 TO 5 Normal 0-25 [facility] Comment on above: Performed By: #### U HCG, UAMIC ####[address] , [place] 1728[address] Lab Director: Baldomero Espinoza MD Glucose Ql (U) Negative Normal NEG [facility] Comment on above: Performed By: #### U HCG, UAMIC ####[address] [place] [address] Lab Director: Baldomero Espinoza MD Ketones Ql (U) Negative Normal NEG [facility] Comment on above: Performed By: #### U HCG, UAMIC ####[address] [place] [address] Lab Director: Baldomero Espinoza MD Leukocyte esterase Test strip Ql (U) Negative Normal NEG [facility] Comment on above: Performed By: #### U HCG, UAMIC ####[address] [place] [address] lab Director: Baldomero Espinoza MD Mucus Strands TRACE Abnormal NONE [facility] Comment on above: Performed By: #### U HCG, UAMIC ####[address] [place] [address] Lab Director: Baldomero Espinoza MD Nitrite,Ur Negative Normal NEG [facility] Comment on above: Performed By: #### U HCG, UAMIC ####[address] [place] [address] Lab Director: Baldomero Espinoza MD PH,Ur 6.5 Normal 5.0-9.0 [facility] Comment on above: Performed By: #### U HCG, UAMIC ####[address] [place] [address] Lab Director: Baldomero Espinoza MD Protein Ql (U) Negative Normal NEG [facility] Comment on above: Performed By: #### U HCG, UAMIC ####[address] [place] [address] Lab Director: Baldomero Espinoza MD Spec. [place],Ur 1.010 Normal 1.010-1.020 [facility] Comment on above: Performed By: #### U HCG, UAMIC ####[address] , [place] [address] lab Director: Baldomero Espinoza MD Urine RBC's 0 TO 2 Normal 0-2 [facility] Comment on above: Performed By: #### U HCG, UAMIC ####[facility] [place] , [place] [address] lab Director: Baldomero Espnioza MD Urine WBC's 0 TO 2 Normal 0-5 [facility] Comment on above: Performed By: #### U HCG, UAMIC ####[facility] [place] [address] lab Director: Baldomero Espinoza MD Urobilinogen,Ur Normal Normal 0.0-1.0 [facility] Comment on above: Performed By: #### U HCG, UAMIC ####[facility] , [place] [address] lab Director: Baldomero Espinoza MD CHEMISTRYOrdered By: [...] rate/Area] 87 mL/min/1.73 m2 Normal >=59mL/min/1.73 m2 [facility] Chem S Lipase [Catalytic activity/Vol] 35 U/L Normal 13 - 58 unit/L [facility] Remisol Potassium [Moles/Vol] 3.8 mmol/L Normal 3.5 - 5.3 mmol/L [facility] Remisol Protein [Mass/Vol] 7.2 g/dL Normal 6.0 - 7.8 gm/dL [facility] Remisol Sodium [Moles/Vol] 139 mmol/L Normal 135 - 145 mmol/L [facility] Remisol Urea nitrogen [Mass/Vol] 11 mg/dL Normal 5 - 21 mg/dL [facility] Remisol CHEMISTRYOrdered By: Pranav Meng on 10-20-2022 Albumin/Globulin [Mass ratio] 1.4 {ratio} Normal 1.1 - 2.2 [facility] Chem S Anion gap [Moles/Vol] 11 mmol/L Normal 6 - 16 mEq/L [facility] Chem S Globulin (S) [Mass/Vol] 3.0 g/dL Normal 1.4 - 4.0 gm/dL [facility] Chem S Glucose [Mass/Vol] 86 mg/dL Normal 55 - 199 mg/dL [facility] Chem S Urea nitrogen/Creatinine [Mass ratio] 12 mg/mg Normal 10 - 20 [facility] Chem S HEMATOLOGYOrdered By: SYSTEM SYSTEM on 10-20-2022 Basophils/100 WBC (Bld) 1.0 % Normal 0.0 - 2.0 % [facility] HemeAutoSS Basophils/Leukocyte s Auto (Bld) [Pure # fraction] 0.0 E9/L Normal 0.0 - 0.2 E9/L [facility] HemeAutoSS Eosinophils/100 WBC (Bld) 2.2 % Normal 0.0 - 8.0 % [facility] HemeAutoSS Eosinophils/Leukocy stevan Auto (Bld) [Pure # fraction] 0.1 E9/L Normal 0.0 - 0.5 E9/L [facility] Lymphocytes/100 WBC (Bld) 35.9 % Normal 14.0 - 50.0 % [facility] HemeAutoSS Lymphocytes/Leukocy stevan Auto (Bld) [Pure # [...] AM) Normal Negative [facility] UA Auto SS [place].plasma/Lith ium.RBC (Bld) [Mass ratio] 0-3 /HPF Normal [...] Desc Clean Catch (10/20/22 10:25 AM) Normal [facility] UA Auto SS Urobilinogen Qn (U) [id number] {Munir'U}/dL Normal 0.0 - 1.0 EU/dL [facility] UA Auto SS WBC Auto Ql (U) Negative (10/20/22 10:25 AM) Normal Negative [facility] UA Auto SS WBC LM.HPF (Urine sed) [#/Area] 0-5 /HPF Normal 0-5/HPF [facility] UA Auto SS CHEMISTRYOrdered By: SYSTEM SYSTEM [...] rate/Area] 100 mL/min/1.73 m2 Normal >=59mL/min/1.73 m2 [facility] Chem S Globulin (S) [Mass/Vol] 3.0 g/dL Normal 1.4 - 4.0 gm/dL [facility] Remisol Glucose [Mass/Vol] 83 mg/dL Normal 55 - 199 mg/dL [facility] Lipase [Catalytic activity/Vol] 89 U/L High 13 - 58 unit/L [facility] Remisol Potassium [Moles/Vol] 4.1 mmol/L Normal 3.5 - 5.3 mmol/L [facility] Protein [Mass/Vol] 7.4 g/dL Normal 6.0 [...] 6.6 % Normal 4.0 - 14.0 % [facility] HemeAutoSS Monocytes/Leukocyte s Auto (Bld) [Pure # fraction] 0.3 E9/L Normal 0.2 - 1.0 E9/L [facility]eAutoSS Neutrophils/100 WBC (Bld) 41.8 % Normal 36.0 - 75.0 % [facility] HemeAutoSS Neutrophils/Leukocy stevan Auto (Bld) [Pure # fraction] 1.8 E9/L Low 2.0 - 7.5 E9/L [facility] HemeAutoSS HEMATOLOGYOrdered By: Kaye brito on 10-19-2022 Erythrocyte distribution width (RBC) [Ratio] 13.7 % Normal 10.9 - 14.2 % [facility] HemeAutoSS Hematocrit (Bld) [Volume fraction] 40.7 % Normal 34.0 - 46.0 % [facility]eAutoSS Hemoglobin (Bld) [Mass/Vol] 14.1 g/dL Normal 12.0 - 16.0 gm/dL [facility]eAutoSS MCH (RBC) [Entitic mass] 31.0 pg Normal 27.0 - 34.0 pg [facility]eAutoSS MCHC (RBC) [Mass/Vol] 34.5 g/dL Normal 31.4 - 36.0 gm/dL [facility]eAutoSS MCV (RBC) [Entitic vol] 89.8 fL Normal 80.0 - 100.0 fL [facility]eAutoSS Platelet mean volume (Bld) [Entitic vol] 10.3 fL Normal 6.4 - 10.8 fL [facility]eAutoSS Platelets (Bld) [#/Vol] 245.0 E9/L Normal 150.0 - 500.0 E9/L [facility]eAutoSS RBC (Bld) [#/Vol] 4.5 E12/L Normal 4.3 - 5.9 E12/L [facility] HemeAutoSS WBC corrected for nucl RBC Auto (Bld) [#/Vol] 4.4 E9/L Normal 4.0 - 11.0 E9/L [facility] HemeAutoSS URINALYSISOrdered By: Kaye brito on 10-19-2022 [...] AM) Normal Negative [facility] UA Auto SS [place].plasma/Lith ium.RBC (Bld) [Mass ratio] 0-3 /HPF Normal 0-3/HPF [facility] UA Auto SS Nitrite Ql (U) Negative (10/19/22 9:18 AM) Normal Negative [facility] UA Auto SS pH (U) 7.5 *NA* (10/19/22 9:18 AM) Invalid Interpretation Code 5.0 - 9.0 [facility] UA Auto SS Protein (U) [Mass/Vol] Negative (10/19/22 9:18 AM) Normal Negative [facility] UA Auto SS Specific gravity (U) [Rel density] 1.010 *NA* (10/19/22 9:18 AM) Invalid Interpretation Code 1.005 - 1.030 [facility] UA Auto SS UA Spec Desc Clean Catch (10/19/22 9:18 AM) Normal [facility] UA Auto SS Urobilinogen Qn (U) 0.1748660 {Munir'U}/dL Normal 0.0 - 1.0 EU/dL [facility] UA Auto SS WBC Auto Ql (U) Negative (10/19/22 9:18 AM) Normal Negative [facility] UA Auto SS WBC LM.HPF (Urine sed) [#/Area] 0-5 /HPF Normal 0-5/HPF [facility] UA Auto SS [facility]ALTHon 10-18-2022 ALLIED [facility]ALTH HNO ID: [id number] Author: Karina Gonzales Tech Service: ? Author [...] PERIPHERAL IV DATA: Inpatient - refer to [facility] documentation RADIOLOGY DEPARTMENT: CT; Exam(s) Completed: Abdomen/Pelvis SIGNATURE: Tessa Griffin PATIENT NAME: Abbey Garcia DATE: October 18, 2022 TIME: 10:07 AM Normal [facility] CBC W Auto Differential pane l (Bld)on 10-18-2022 Basophils (Bld) [#/Vol] 0.03 10*3/uL Normal <0.11 [facility] Comment on above: Order Comment: Speci men Type: BLOOD SPECIMEN Ordering Facility: [facility] Address: [address] [place] [address] Performed By: #### 5 7021-8 #### [facility] CLIA [id number] [address] [place] [facility] Basophils/100 WBC (Bld) 0.8 % Normal [facility] Comment on above: Order Comment: Speci men Type: BLOOD SPECIMEN Ordering Facility: [facility] Address: [address] [address] Performed By: #### 5 7021-8 #### [facility] CLIA [id number] [address] [place] Differential cell count method Nom (Bld) Auto Normal [facility] Comment on above: Order Comment: Speci men Type: BLOOD SPECIMEN Ordering Facility: [facility] Address: [address] [address] Performed By: #### 5 7021-8 #### [facility] CLIA [id number] [address] [place] Eosinophils (Bld) [#/Vol] 0.14 10*3/uL Normal <0.46 [facility] Comment on above: Order Comment: Speci men Type: BLOOD SPECIMEN Ordering Facility: [facility] Address: [address] [place] [address] Performed By: #### 5 7021-8 #### [facility] CLIA [id number] [address] [place] Eosinophils/100 WBC (Bld) 3.7 % Normal [facility] Comment on above: Order Comment: Speci men Type: BLOOD SPECIMEN Ordering Facility: [facility] Address: [address] [place] [address] Performed By: #### 5 7021-8 #### [facility] CLIA [id number] [address] Erythrocyte distribution width (RBC) [Ratio] 12.7 % Normal 11.5-15.0 [facility] Comment on above: Order Comment: Speci men Type: BLOOD SPECIMEN Ordering Facility: [facility] Address: [address] [place] [address] Performed By: #### 5 7021-8 #### [facility] CLIA [id number] [address] [place] Hematocrit (Bld) [Volume fraction] 38.5 % Normal 36.0-46.0 [facility] Comment on above: Order Comment: Speci men Type: BLOOD SPECIMEN Ordering Facility: [facility] Address: [address] [place] [address] Performed By: #### 5 7021-8 #### [facility] CLIA [id number] [address] [place] Hemoglobin (Bld) [Mass/Vol] 12.9 g/dL Normal 11.5-15.5 [facility] Comment on above: Order Comment: Speci men Type: BLOOD SPECIMEN Ordering Facility: [facility] Address: [address] [address] Performed By: #### 5 7021-8 #### [facility] CLIA [id number] [address] Immature granulocytes (Bld) [#/Vol] 10*3/uL Normal <0.10 [facility] Comment on above: Order Comment: Speci men Type: BLOOD SPECIMEN Ordering Facility: [facility] Address: [address] [place] [address] Performed By: #### 5 7021-8 #### [facility] CLIA [id number] [address] Immature granulocytes/100 WBC (Bld) 0.3 % Normal [facility] Comment on above: Order Comment: Speci men Type: BLOOD SPECIMEN Ordering Facility: [facility] Address: [address] [address] Performed By: #### 5 7021-8 #### [facility] CLIA [id number] [address] [place] Lymphocytes (Bld) [#/Vol] 1.66 10*3/uL Normal 1.00-4.00 [facility] Comment on above: Order Comment: Speci men Type: BLOOD SPECIMEN Ordering Facility: [facility] Address: [address] [place] [address] Performed By: #### 5 7021-8 #### [facility] CLIA [id number] [address] Lymphocytes/100 WBC (Bld) 43.7 % Normal [facility] Comment on above: Order Comment: Speci men Type: BLOOD SPECIMEN Ordering Facility: [facility] Address: [address] [place] [address] Performed By: #### 5 7021-8 #### [facility] CLIA [id number] [address] [place] MCH (RBC) [Entitic mass] 30.2 pg Normal 26.0-34.0 [facility] Comment on above: Order Comment: Speci men Type: BLOOD SPECIMEN Ordering Facility: [facility] Address: [address] [place] [address] Performed By: #### 5 7021-8 #### [facility] CLIA [id number] [address] MCHC (RBC) [Mass/Vol] 33.5 g/dL Normal 30.5-36.0 [facility] Comment on above: Order Comment: Speci men Type: BLOOD SPECIMEN Ordering Facility: [facility] Address: [address] [place] [address] Performed By: #### 5 7021-8 #### [facility] CLIA [id number] [address] MCV (RBC) [Entitic vol] 90.2 fL Normal 80.0-100.0 [facility] Comment on above: Order Comment: Speci men Type: BLOOD SPECIMEN Ordering Facility: [facility] Address: [address] [place] [address] Performed By: #### 5 7021-8 #### [facility] CLIA [id number] [address] Monocytes (Bld) [#/Vol] 0.28 10*3/uL Normal <0.87 [facility] Comment on above: Order Comment: Speci men Type: BLOOD SPECIMEN Ordering Facility: [facility] Address: [address] [place] [address] Performed By: #### 5 7021-8 #### [facility] CLIA [id number] [address] Monocytes/100 WBC (Bld) 7.4 % Normal [facility] Comment on above: Order Comment: Speci men Type: BLOOD SPECIMEN Ordering Facility: [facility] Address: [address] [place] [address] Performed By: #### 5 7021-8 #### [facility] CLIA [id number] [address] [place] [address] [place] Neutrophils (Bld) [#/Vol] 1.68 10*3/uL Normal 1.45-7.50 [facility] Comment on above: Order Comment: Speci men Type: BLOOD SPECIMEN Ordering Facility: [facility] Address: [address] [address] Performed By: #### 5 7021-8 #### [facility] CLIA [id number] [address] [place] Neutrophils/100 WBC (Bld) 44.1 % Normal [facility] Comment on above: Order Comment: Speci men Type: BLOOD SPECIMEN Ordering Facility: [facility] Address: [address] [place] [address] Performed By: #### 5 7021-8 #### [facility] CLIA [id number] [address] [place] Nucleated RBC (Bld) [#/Vol] 10*3/uL Normal <0.01 [facility] Comment on above: Order Comment: Speci men Type: BLOOD SPECIMEN Ordering Facility: [facility] Address: [address] [address] Performed By: #### 5 7021-8 #### [facility] CLIA [id number] [address] Nucleated RBC/100 WBC (Bld) [Ratio] 0.0 /100 WBC Normal [facility] Comment on above: Order Comment: Speci men Type: BLOOD SPECIMEN Ordering Facility: [facility] Address: [address] [address] Performed By: #### 5 7021-8 #### [facility] CLIA [id number] [address] [place] Platelet mean volume (Bld) [Entitic vol] 11.1 fL Normal 9.0-12.7 [facility] Comment on above: Order Comment: Speci men Type: BLOOD SPECIMEN Ordering Facility: [facility] Address: [address] [place] [address] Performed By: #### 5 7021-8 #### [facility] CLIA [id number] [address] [place] Platelets (Bld) [#/Vol] 231 10*3/uL Normal 150-400 [facility] Comment on above: Order Comment: Speci men Type: BLOOD SPECIMEN Ordering Facility: [facility] Address: [address] [place] [address] Performed By: #### 5 7021-8 #### [facility] CLIA [id number] [address] [place] RBC (Bld) [#/Vol] 4.27 10*6/uL Normal 3.90-5.20 [facility] Comment on above: Order Comment: Speci men Type: BLOOD SPECIMEN Ordering Facility: [facility] Address: [address] [place] [address] Performed By: #### 5 7021-8 #### [facility] CLIA [id number] [address] WBC (Bld) [#/Vol] 3.80 10*3/uL Normal 3.70-11.00 [facility] Comment on above: Order Comment: Speci men Type: BLOOD SPECIMEN Ordering Facility: [facility] Address: [address] [place] [address] Performed By: #### 5 7021-8 #### [facility] CLIA [id number] [address] [facility] CT ABD/PEL WO IVCONon 2022 CT ABD/PEL WO IVCON * * *Final Report* * * DATE OF EXAM: Oct 18 2022 10:07AM [facility] 0531 - CT ABD/PEL WO IVCON [...] Tissues: No acute abnormality. Lower thorax: Unremarkable. Research Consultant (topogram) images: No additional findings. IMPRESSION: Stable findings as detailed above. No acute intra-abdominal or pelvic process seen. Authorizer: JUANCARLOS Transcribe Date/Time: Oct 18 2022 10:14A Dictated by : ADELA FISHER MD This examination was interpreted and the report reviewed and electronically signed by: ADELA FISHER MD on Oct 18 2022 10:21AM EST [id number] Normal [facility] Comprehensive metabolic 2000 panelon 10-18-2022 Albumin [Mass/Vol] 4.3 g/dL Normal 3.9-4.9 [facility] Comment on above: Order Comment: Speci men Type: BLOOD SPECIMEN Ordering Facility: [facility] Address: [address] [place] [id number] Performed By: #### 2 4323-8, 3040-3 #### [facility] CLIA [id number] [address] [place] [address] [place] ALP [Catalytic activity/Vol] 73 U/L Normal 34-123 [facility] Comment on above: Order Comment: Speci men Type: BLOOD SPECIMEN Ordering Facility: [facility] Address: [address] [address] Performed By: #### 2 4323-8, 3040-3 #### [facility] CLIA [id number] [address] ALT With P-5'-P [Catalytic activity/Vol] 24 U/L Normal 7-38 [facility] Comment on above: Order Comment: Speci men Type: BLOOD SPECIMEN Ordering Facility: [facility] Address: [address] [address] Performed By: #### 2 4323-8, 3039-3 #### [facility] CLIA [id number] [address] [facility] Anion gap [Moles/Vol] 8 mmol/L Low 9-18 [facility] Comment on above: Order Comment: Speci men Type: BLOOD SPECIMEN Ordering Facility: [facility] Address: [address] [address] Performed By: #### 2 4323-8, 3039-3 #### [facility] CLIA [id number] [address] AST With P-5'-P [Catalytic activity/Vol] 36 U/L High 13-35 [facility] Comment on above: Order Comment: Speci men Type: BLOOD SPECIMEN Ordering Facility: [facility] Address: [address] [address] Performed By: #### 2 4323-8, 0-3 #### [facility] CLIA [id number] [address] [place] Bilirubin [Mass/Vol] 0.4 mg/dL Normal 0.2-1.3 [facility] Comment on above: Order Comment: Speci men Type: BLOOD SPECIMEN Ordering Facility: [facility] Address: [address] [address] Performed By: #### 2 4323-8, 0-3 #### [facility] CLIA [id number] [address] [place] Calcium [Mass/Vol] 8.9 mg/dL Normal 8.5-10.2 [facility] Comment on above: Order Comment: Speci men Type: BLOOD SPECIMEN Ordering Facility: [facility] Address: [address] [place] [address] Performed By: #### 2 4323-8, 0-3 #### [facility] CLIA [id number] [address] [place] Chloride [Moles/Vol] 108 mmol/L High 97-105 [facility] Comment on above: Order Comment: Speci men Type: BLOOD SPECIMEN Ordering Facility: [facility] Address: [address] [place] [address] Performed By: #### 2 [address], 3039-3 #### [facility] CLIA [id number] [address] CO2 [Moles/Vol] 26 mmol/L Normal 22-30 [facility] Comment on above: Order Comment: Speci men Type: BLOOD SPECIMEN Ordering Facility: [facility] Address: [address] [place] [address] Performed By: #### 2 4323-8, 0-3 #### [facility] CLIA [id number] [address] [place] Creatinine [Mass/Vol] 0.81 mg/dL Normal 0.58-0.96 [facility] Comment on above: Order Comment: Speci men Type: BLOOD SPECIMEN Ordering Facility: [facility] Address: [address] [place] [address] Performed By: #### 2 4323-8, 3040-3 #### [facility] CLIA [id number] [address] Creatinine and Glomerular filtration rate.predicted panel (S/P/Bld) 98 mL/min/1.73m??? Normal >=60 [facility] Comment on above: Order Comment: Geraldo marrero Type: BLOOD SPECIMEN Ordering Facility: [facility] Address: [address] [place] [address] Result Comment: Jessica mated Glomerular Filtration Rate [...] Performed By: #### 2 4323-8, 3040-3 #### [facility] CLIA [id number] [address] [place] [address] [place] Glucose [Mass/Vol] 85 mg/dL Normal 74-99 [facility] Comment on above: Order Comment: Geraldo marrero Type: BLOOD SPECIMEN Ordering Facility: [facility] Address: [address] [address] Result Comment: The [place] [employer] (ADA) provides guidance for cutoff [...] Standards of Medical Care in Diabetes 2016, [place] [employer]. Diabetes Care. 2016.39(Suppl 1). Performed By: #### 2 4323-8, 3040-3 #### [facility] CLIA [id number] [address] [place] [address] [place] Potassium [Moles/Vol] 4.3 mmol/L Normal 3.7-5.1 [facility] Comment on above: Order Comment: Geraldo marrero Type: BLOOD SPECIMEN Ordering Facility: [facility] Address: [address] [address] Performed By: #### 2 4323-8, 3040-3 #### [facility] CLIA [id number] [address] [facility] Protein [Mass/Vol] 6.4 g/dL Normal 6.3-8.0 [facility] Comment on above: Order Comment: Speci men Type: BLOOD SPECIMEN Ordering Facility: [facility] Address: [address] [place] [address] Performed By: #### 2 4323-8, 3040-3 #### [facility] CLIA [id number] [address] [place] Sodium [Moles/Vol] 142 mmol/L Normal 136-144 [facility] Comment on above: Order Comment: Speci men Type: BLOOD SPECIMEN Ordering Facility: [facility] Address: [address] [place] [address] Performed By: #### 2 4323-8, 3040-3 #### [facility] CLIA [id number] [address] [place] Urea nitrogen [Mass/Vol] 8 mg/dL Normal 7-21 [facility] Comment on above: Order Comment: Speci men Type: BLOOD SPECIMEN Ordering Facility: [facility] Address: [address] [place] [address] Performed By: #### 2 4323-8, 3040-3 #### [facility] CLIA [id number] [address] [place] ED NOTEon 10-18-2022 ED NOTE HNO ID: [id number] Author: Serafin Curiel RN Service: ? Author Type: Registered Nurse Type: ED Notes Filed: 10/18/2022 10:46 AM Note Text: Provider previously at bedside discussing results/findings. Discharge instructions, follow up recommendations and medications reviewed with patient. Pt advised to return to ED with worsening symptoms. Pt verbalizes understanding. Stable and ambulatory upon d/c Normal [facility] ED NOTE HNO ID: [id number] Author: Alannah Carter RN Service: ? Author Type: Registered Nurse Type: ED Notes Filed: 10/18/2022 7:53 AM Note Text: Bed: 26-ED Expected date: Expected time: Means of arrival: Comments: TRIAGE Normal [facility] ED PROV NOTEon 10-18-2022 ED PROV NOTE HNO ID: [id number] Author: Alverto Barrett MD Service: Emergency Medicine [facility] Lipase SerPl-cCncon 10-19-19 Lipase [Catalytic activity/Vol] 34 U/L Normal 16 [facility] Comment on above: Order Comment: Speci men Type: BLOOD SPECIMEN Ordering Facility: [facility] Address: [address] [address] Performed By: #### 2 4323-8, 3040-3 #### [facility] CLIA [id number] [address] [place] [address] Urinalysis complete panel (U )on 10-18-2022 Bilirubin Ql (U) Negative Normal Negative [facility] Comment on above: Order Comment: Speci men Type: URINE SPECIMEN Ordering Facility: [facility] Address: [address] [address] Performed By: #### 2 4356-8 #### [facility] CLIA [id number] [address] [place] [address] Clarity (Unsp spec) Clear Normal Clear [facility] Comment on above: Order Comment: Speci men Type: URINE SPECIMEN Ordering Facility: [facility] Address: [address] [address] Performed By: #### 2 4356-8 #### [facility] CLIA [id number] [address] Color (U) Light Yellow Normal yellow [facility] Comment on above: Order Comment: Speci men Type: URINE SPECIMEN Ordering Facility: [facility] Address: [address] [address] Performed By: #### 2 4356-8 #### [facility] CLIA [id number] [address] [place] [address] [place] Epithelial cells LM.HPF (Urine sed) [#/Area] Few Normal [facility] Comment on above: Order Comment: Speci men Type: URINE SPECIMEN Ordering Facility: [facility] Address: [address] [place] [address] Performed By: #### 2 4356-8 #### [facility] CLIA [id number] [address] Glucose Test strip (U) [Mass/Vol] Negative Normal Trace, Negative [facility] Comment on above: Order Comment: Speci men Type: URINE SPECIMEN Ordering Facility: [facility] Address: [address] [place] [address] Performed By: #### 2 4356-8 #### [facility] CLIA [id number] [address] Hemoglobin Ql (U) Negative Normal Negative, Trace [facility] Comment on above: Order Comment: Speci men Type: URINE SPECIMEN Ordering Facility: [facility] Address: [address] [place] [address] Performed By: #### 2 4356-8 #### [facility] CLIA [id number] [address] Ketones Ql (U) Negative Normal Negative, Trace [facility] Comment on above: Order Comment: Speci men Type: URINE SPECIMEN Ordering Facility: [facility] Address: [address] [place] [address] Performed By: #### 2 4356-8 #### [facility] CLIA [id number] [address] Leukocyte esterase Test strip Ql (U) Negative Normal Negative, 25 Patito/uL [facility] Comment on above: Order Comment: Speci men Type: URINE SPECIMEN Ordering Facility: [facility] Address: [address] [place] [address] Performed By: #### 2 4356-8 #### [facility] CLIA [id number] [address] [place] [address] [place] Nitrite Ql (U) Negative Normal Negative [facility] Comment on above: Order Comment: Speci men Type: URINE SPECIMEN Ordering Facility: [facility] Address: [address] [place] [address] Performed By: #### 2 4356-8 #### [facility] CLIA [id number] [address] [place] pH (U) 7.5 [pH] Normal 5.0-8.0 [facility] Comment on above: Order Comment: Speci men Type: URINE SPECIMEN Ordering Facility: [facility] Address: [address] [place] [address] Performed By: #### 2 6-8 #### [facility] CLIA [id number] [address] [place] Protein (U) [Mass/Vol] Negative Normal Trace, Negative [facility] Comment on above: Order Comment: Speci men Type: URINE SPECIMEN Ordering Facility: [facility] Address: [address] [place] [address] Performed By: #### 2 6-8 #### [facility] CLIA [id number] [address] [place] [address] [place] RBC LM.HPF (Urine sed) [#/Area] 0-3 /HPF Normal 0-3 /HPF [facility] Comment on above: Order Comment: Speci men Type: URINE SPECIMEN Ordering Facility: [facility] Address: [address] [place] [address] Performed By: #### 2 4356-8 #### [facility] CLIA [id number] [address] [place] [address] [place] Specific gravity (U) [Rel density] 1.008 Normal 1.005-1.030 [facility] Comment on above: Order Comment: Speci men Type: URINE SPECIMEN Ordering Facility: [facility] Address: [address] [place] [address] Performed By: #### 2 4356-8 #### [facility] CLIA [id number] [address] Urobilinogen Ql (U) Normal Normal Negative [facility] Comment on above: Order Comment: Speci men Type: URINE SPECIMEN Ordering Facility: [facility] Address: [address] [place] [address] Performed By: #### 2 4356-8 #### [facility] CLIA [id number] [address] WBC LM.HPF (Urine sed) [#/Area] 0-5 /HPF Normal 0-5 /HPF [facility] Comment on above: Order Comment: Speci men Type: URINE SPECIMEN Ordering Facility: [facility] Address: [address] [place] [address] Performed By: #### 2 4356-8 #### [facility] CLIA [id number] [address] Urinalysis w/ Microon 2022 Bilirubin, SemiQt,Ur Negative Normal NEG [facility] Comment on above: Performed By: #### U AMIC #### [facility] [address] [place] [address] Park Interpreter: Baldomero Espinoza MD Blood, Urine Negative Normal NEG [facility] Comment on above: Performed By: #### U AMIC #### [facility] [address] [place] [address] Park Interpreter: Baldomero Espinoza MD Clarity (U) Clear Normal CLEAR [facility] Comment on above: Performed By: #### U AMIC #### [facility] [address] [place] [address] Park Interpreter: Baldomero Espinoza MD Color (U) Yellow Normal YEL [facility] Comment on above: Performed By: #### U AMIC #### [facility] [address] [place] [address] Park Interpreter: Baldomero Espinoza MD Epithelial cells LM Ql (Urine sed) None Normal 0-25 [facility] Comment on above: Performed By: #### U AMIC #### [facility] [address] [place], [place] [id number] Park Interpreter: Baldomero Espinoza MD Glucose Ql (U) Negative Normal NEG [facility] in Hospital Comment on above: Performed By: #### U AMIC #### [facility] [address] [place], [place] [id number] Park Interpreter: Baldomero Espinoza MD Ketones Ql (U) Negative Normal NEG [facility] in Hospital Comment on above: Performed By: #### U AMIC #### [facility] [address] [place] [address] [place] [place], [place] [id number] Park Interpreter: Baldomero Espinoza MD Leukocyte esterase Test strip Ql (U) Negative Normal NEG [facility] Comment on above: Performed By: #### U AMIC #### [facility] [address] [place], [place] [id number] Park Interpreter: Baldomero Espinoza MD Nitrite,Ur Negative Normal NEG [facility] Comment on above: Performed By: #### U AMIC #### [facility] [address] [place] [address] Dr[place], [place] [id number] Park Interpreter: Baldomero Espinoza MD PH,Ur 6.5 Normal 5.0-9.0 [facility] Comment on above: Performed By: #### U AMIC #### [facility] [address] [place], [place] [id number] Park Interpreter: Baldomero Espinoza MD Protein Ql (U) Negative Normal NEG [facility] in Hospital Comment on above: Performed By: #### U AMIC #### [facility] [address] [place] [address] Park Interpreter: Baldomero Espinoza MD Spec. [place],Ur 1.020 Normal 1.010-1.020 [facility] Comment on above: Performed By: #### U AMIC #### [facility] [address] [place] [address] Park Interpreter: Baldomero Espinoza MD Urine RBC's None Normal 0-2 [facility] Comment on above: Performed By: #### U AMIC #### [facility] [address] [place] [address] Park Interpreter: Baldomero Espinoza MD Urine WBC's None Normal 0-5 [facility] Comment on above: Performed By: #### U AMIC #### [facility] [address] [place] [address] Park Interpreter: Baldomero Espinoza MD Urobilinogen,Ur Normal Normal 0.0-1.0 [facility] Comment on above: Performed By: #### U AMIC #### [facility] [address] [place] [address] Park Interpreter: Baldomero Espinoza MD C3 COMPLEMENT [facility] 06-13-19 23 Complement C3 [Mass/Vol] 140 mg/dL 86 - 166 mg/dL [facility] C4 COMPLEMENT [facility] 06-13-19 23 Complement C4 [Mass/Vol] 25 mg/dL 13 - 46 mg/dL [facility] CBC W Auto Differential pane l (Bld)on 06-12-2022 Basophils (Bld) [#/Vol] 0.04 10*3/uL <0.11 k/uL [facility] Basophils/100 WBC (Bld) 0.9 % [facility] Differential cell count method Nom (Bld) Auto [facility] Eosinophils (Bld) [#/Vol] 0.09 10*3/uL <0.46 k/uL [facility] Eosinophils/100 WBC (Bld) 2.0 % [facility] Erythrocyte distribution width (RBC) [Ratio] 12.8 % 11.5 - 15.0 % [facility] Hematocrit (Bld) [Volume fraction] 40.5 % 36.0 - 46.0 % [facility] Hemoglobin (Bld) [Mass/Vol] 13.4 g/dL 11.5 - 15.5 g/dL [facility] Immature granulocytes (Bld) [#/Vol] <0.10 k/uL [facility] Immature granulocytes/100 WBC (Bld) 0.2 % [facility] Lymphocytes (Bld) [#/Vol] 1.73 10*3/uL 1.00 - 4.00 k/uL [facility] Lymphocytes/100 WBC (Bld) 37.9 % [facility] MCH (RBC) [Entitic mass] 30.0 pg 26.0 - 34.0 pg [facility] MCHC (RBC) [Mass/Vol] 33.1 g/dL 30.5 - 36.0 g/dL [facility] MCV (RBC) [Entitic vol] 90.8 fL 80.0 - 100.0 fL [facility] Monocytes (Bld) [#/Vol] 0.23 10*3/uL <0.87 k/uL [facility] Monocytes/100 WBC (Bld) 5.0 % [facility] Neutrophils (Bld) [#/Vol] 2.46 10*3/uL 1.45 - 7.50 k/uL [facility] Neutrophils/100 WBC (Bld) 54.0 % [facility] Nucleated RBC (Bld) [#/Vol] <0.01 k/uL [facility] Nucleated RBC/100 WBC (Bld) [Ratio] 0.0 /100 WBC [facility] Platelet mean volume (Bld) [Entitic vol] 11.3 fL 9.0 - 12.7 fL [facility] Platelets (Bld) [#/Vol] 292 10*3/uL 150 - 400 k/uL [facility] RBC (Bld) [#/Vol] 4.46 10*6/uL 3.90 - 5.20 m/uL [facility] WBC (Bld) [#/Vol] 4.56 10*3/uL 3.70 - 11.00 k/u L [facility] CK CREATINE KINASEon 023 CK [Catalytic activity/Vol] 44 U/L 42 - 196 U/L [facility] Comprehensive metabolic 2000 panelon 06-12-2022 Albumin [Mass/Vol] 4.3 g/dL 3.9 - 4.9 g/dL [facility] ALP [Catalytic activity/Vol] 64 U/L 34 - 123 U/L [facility] ALT [Catalytic activity/Vol] 20 U/L 7 - 38 U/L [facility] Anion gap [Moles/Vol] 10 mmol/L 9 - 18 mmol/L [facility] AST [Catalytic activity/Vol] 33 U/L 13 - 35 U/L [facility] Bilirubin [Mass/Vol] 0.4 mg/dL 0.2 - 1.3 mg/dL [facility] Calcium [Mass/Vol] 9.3 mg/dL 8.5 - 10.2 mg/dL [facility] Chloride [Moles/Vol] 106 mmol/L High 97 - 105 mmol/L [facility] CO2 [Moles/Vol] 23 mmol/L 22 - 30 mmol/L [facility] Creatinine [Mass/Vol] 0.76 mg/dL 0.58 - 0.96 mg/dL [facility] Estimated Glomerular Filtration Rate 106 mL/min/1.73m >=60 mL/min/1.73m [facility] Glucose [Mass/Vol] 79 mg/dL 74 - 99 mg/dL [facility] Potassium [Moles/Vol] 4.0 mmol/L 3.7 - 5.1 mmol/L [facility] Protein [Mass/Vol] 6.9 g/dL 6.3 - 8.0 g/dL [facility] Sodium [Moles/Vol] 139 mmol/L 136 - 144 mmol/L [facility] Urea nitrogen [Mass/Vol] 9 mg/dL 7 - 21 mg/dL [facility] FERRITIN BLDon 06-12-2022 Ferritin [Mass/Vol] 36.6 ng/mL 14.7 - 205.1 ng/ mL [facility] FOLATE SERUMon 06-12-2022 Folate [Mass/Vol] 6.8 ng/mL >4.7 ng/mL [facility] Iron and Iron binding capaci ty panelon 06-12-2022 Iron [Mass/Vol] 100 ug/dL 41 - 186 ug/dL [facility] Iron binding capacity [Mass/Vol] 332 ug/dL 232 - 386 ug/dL [facility] Iron/TIBC [Molar ratio] 30.1 % 15.0 - 57.0 % [facility] MAGNESIUM BLDon 06-12-2022 Magnesium [Mass/Vol] 2.2 mg/dL 1.7 - 2.3 mg/dL [facility] RHEUMATOID FACTOR BLon 06-12 Rheumatoid factor Qn <16 IU/mL [facility] VITAMIN B12 BLOODon 06-13-19 Cobalamin (Vitamin B12) [Mass/Vol] 854 pg/mL 232 - 1,245 pg/mL [facility] CHEMISTRYOrdered By: SYSTEM SYSTEM on 06-10-2022 [...] rate/Area] 100 mL/min/1.73 m2 Normal >=59mL/min/1.73 m2 [facility] Chem S Glucose [Mass/Vol] [...] ratio] 15 mg/mg Normal 10 - 20 FT Remisol COAGULATIONOrdered By: Gladys Blair on 06-10-2022 [...] 30.6 pg Normal 27.0 - 34.0 pg [facility] HemeAutoSS MCHC (RBC) [Mass/Vol] 34.0 g/dL Normal [...] 8 mm/h Normal 0 - 34 mm/hr [facility] HemeAutoSS WBC corrected for nucl RBC Auto (Bld) [#/Vol] 5.8 E9/L Normal 4.0 - 11.0 E9/L [facility] HemeAutoSS AMYLASEon 06-09-2022 Amylase [Catalytic activity/Vol] 41 U/L Normal 25-115 [facility] Comment on above: Performed By: #### G RUBIN, LIPID #### [facility] [address] [address] [address] Stephan Tavares CBC AUTO DIFFon 06-09-2022 BASO # 0.0 103/ul Normal 0.0-0.1 [facility] Comment on above: Performed By: #### G RUBIN, LIPID #### [facility] [address] [address] [address] Stephan Tavares Basophils/100 WBC (Bld) 0.7 % Normal 0.2-2.0 [facility] Comment on above: Performed By: #### G RUBIN, LIPID #### [facility] [address] [address] [address] Stephan Tavares EO # 0.1 103/ul Normal 0.0-0.7 [facility] Comment on above: Performed By: #### G RUBIN, LIPID #### [facility] [address] [address] [address] Stephan Tavares Eosinophils/100 WBC (Bld) 1.5 % Normal 0.9-7.0 [facility] Comment on above: Performed By: #### G RUBIN, LIPID #### [facility] [address] [place] [address] Dr. Stephan Tavares Erythrocyte distribution width (RBC) [Ratio] 13.1 % Normal 11.0-15.0 [facility] Comment on above: Performed By: #### G RUBIN, LIPID #### [facility] [address] [place] [address] Dr. Stephan Tavares Hematocrit (Bld) [Volume fraction] 43.2 % Normal 36.0-48.0 [facility] Comment on above: Performed By: #### G RUBIN, LIPID #### [facility] [address] [place] [address] Dr. Stephan Tavares Hemoglobin (Bld) [Mass/Vol] 14.6 g/dL Normal 12.0-16.0 [facility] Comment on above: Performed By: #### G RUBIN, LIPID #### [facility] [address] [place] [address] Dr. Stephan Tavares IG # 0.01 10e3/ul Normal 0.00-0.03 [facility] Comment on above: Performed By: #### G RUBIN, LIPID #### [facility] [address] [place] [address] Dr. Stephan Tavares IG % 0.2 % Normal 0.0-0.5 [facility] Comment on above: Performed By: #### G RUBIN, LIPID #### [facility] [address] [place] [address] Dr. Stephan Tavares LYMPH # 2.1 103/ul Normal 1.2-3.8 [facility] Comment on above: Performed By: #### G RUBIN, LIPID #### [facility] [address] [place] [address] Dr. Stephan Tavares Lymphocytes/100 WBC (Bld) 39.1 % Normal 20.5-60.0 [facility] Comment on above: Performed By: #### G RUBIN, LIPID #### [facility] [address] [place] [address] Dr. Stephan Tavares MANUAL DIFF REQ NO Normal [facility] Comment on above: Performed By: #### G RUBIN, LIPID #### [facility] [address] [place] [address] Dr. Stephan Tavares MCH (RBC) [Entitic mass] 30.2 pg Normal 26.7-34.0 [facility] Comment on above: Performed By: #### G RUBIN, LIPID #### [facility] [address] [place] [address] Dr. Stephan Tavares MCHC (RBC) [Mass/Vol] 33.8 g/dL Normal 29.9-35.2 [facility] Comment on above: Performed By: #### G RUBIN, LIPID #### [facility] [address] [place] [address] Dr. Stephan Tavares MCV (RBC) [Entitic vol] 89.3 fL Normal 81.0-99.0 [facility] Comment on above: Performed By: #### G RUBIN, LIPID #### [facility] [address] [place] [address] Dr. Stephan Tavares MONO # 0.3 103/ul Normal 0.3-0.8 [facility] Comment on above: Performed By: #### G RUBIN, LIPID #### [facility] [address] [place] [address] Dr. Stephan Tavares Monocytes/100 WBC (Bld) 5.2 % Normal 1.7-12.0 [facility] Comment on above: Performed By: #### G RUBIN, LIPID #### [facility] [address] [place] [address] Dr. Stephan Tavares NEUT # 2.9 103/ul Normal 1.4-6.5 [facility] Comment on above: Performed By: #### G RUBIN, LIPID #### [facility] [address] [place] [address] Dr. Stephan Tavares Neutrophils/100 WBC (Bld) 53.3 % Normal 43.0-75.0 [facility] Comment on above: Performed By: #### G RUBIN, LIPID #### [facility] [address] [place] [address] Dr. Stephan Tavares Platelet mean volume (Bld) [Entitic vol] 10.9 fL Normal 9.5-13.5 [facility] Comment on above: Performed By: #### G RUBIN, LIPID #### [facility] [address] [address] [address] Stephan Tavares PLT 271 103/ul Normal 150-450 [facility] Comment on above: Performed By: #### G RUBIN, LIPID #### [facility] [address] [address] [address] Stephan Tavares RBC 4.84 106/ul Normal 4.20-5.40 [facility] Comment on above: Performed By: #### G RUBIN, LIPID #### [facility] [address] [address] [address] Stephan Tavares WBC 5.4 103/ul Normal 4.0-11.0 [facility] Comment on above: Performed By: #### G RUBIN, LIPID #### [facility] [address] [address] [address] ABD/PELVIS WO CONon [...] ALVERTO PHAM Date: 2022-06-09 16:14 Normal [facility] ER URINE PROFILEon 3 Bilirubin Ql (U) Negative Normal NEGATIVE [facility] Comment on above: Performed By: #### G RUBIN, LIPID #### [facility] [address] [place] [address] Dr. Stephan Tavares Clarity (U) CLEAR Normal CLEAR [facility] Comment on above: Performed By: #### G RUBIN, LIPID #### [facility] [address] [place] [address] Dr. Stephan Tavares Color (U) LT. YELLOW Normal YELLOW [facility] Comment on above: Performed By: #### G RUBIN, LIPID #### [facility] [address] [place] [address] Dr. Stephan Tavares ERUAHD A micrscopic examination will be performed if indicated. Normal [facility] Comment on above: Performed By: #### G RUBIN, LIPID #### [facility] [address] [place] [address] Dr. Stephan Tavares Glucose Ql (U) Negative Normal NEGATIVE [facility] Comment on above: Performed By: #### G RUBIN, LIPID #### [facility] [address] [address] [address] Stephan Tavares Hemoglobin Ql (U) Negative Normal NEGATIVE [facility] Comment on above: Performed By: #### G RUBIN, LIPID #### [facility] [address] [place] [address] Dr. Stephan Tavares Ketones Ql (U) Negative Normal NEGATIVE [facility] Comment on above: Performed By: #### G RUBIN, LIPID #### [facility] [address] [place] [address] Dr. Stephan Tavares LEUKOCYTES Negative Normal NEGATIVE [facility] Comment on above: Performed By: #### G RUBIN, LIPID #### [facility] [address] [address] [address] Stephan Tavares Nitrite Ql (U) Negative Normal NEGATIVE [facility] Comment on above: Performed By: #### G RUBIN, LIPID #### [facility] [address] [place] [address] Dr. Stephan Tavares pH (U) 7.5 [pH] Normal 5-9 [facility] Comment on above: Performed By: #### G RUBIN, LIPID #### [facility] [address] [place] [address] Dr. Stephan Tavares SPEC GRAVITY 1.015 Normal 1.005-<=1.025 [facility] Comment on above: Performed By: #### G RUBIN, LIPID #### [facility] [address] [place] [address] Dr. Stephan Tavares UA PROTEIN Negative Normal NEGATIVE/ TRACE [facility] Comment on above: Performed By: #### G RUBIN, LIPID #### [facility] [address] [place] [address] Dr. Stephan Tavares UR MICRO IND NOT INDICATED Normal [facility] Comment on above: Performed By: #### G RUBIN, LIPID #### [facility] [address] [place] [address] Dr. Stephan Tavares Urobilinogen Qn (U) 0.2 {Munir'U}/dL Normal 0.2 - 1. 0 [facility] Comment on above: Performed By: #### G RUBIN, LIPID #### [facility] [address] [place] [address] Dr. Stephan Tavares LIPASEon 06-09-2022 Lipase [Catalytic activity/Vol] 120.0 U/L Normal 73.0-393.0 [facility] Comment on above: Performed By: #### G RUBIN, LIPID #### [facility] [address] [place] [address] Dr. Stephan Tavares PROF 14(COMP METB)on 023 Albumin [Mass/Vol] 4.4 g/dL Normal 3.4-5.0 [facility] Comment on above: Performed By: #### G RUBIN, LIPID #### [facility] [address] [address] [address] Stephan Tavares Albumin/Globulin [Mass ratio] 1.1 {ratio} Normal [facility] Comment on above: Performed By: #### G RUBIN, LIPID #### [facility] [address] [address] [address] Stephan Tavares ALP [Catalytic activity/Vol] 74 U/L Normal 46-116 [facility] Comment on above: Performed By: #### G RUBIN, LIPID #### [facility] [address] [address] [address] Stephan Tavares ALT [Catalytic activity/Vol] 40 U/L Normal 14-59 [facility] Comment on above: Performed By: #### G RUBIN, LIPID #### [facility] [address] [address] [address] Stephan Tavares Anion gap [Moles/Vol] 16.5 mmol/L Normal [facility] Comment on above: Performed By: #### G RUBIN, LIPID #### [facility] [address] [address] [address] Stephan Tavares AST [Catalytic activity/Vol] 45 U/L Critically high 15-37 [facility] Comment on above: Performed By: #### G RUBIN, LIPID #### [facility] [address] [address] [address] Stephan Tavares Bilirubin [Mass/Vol] 0.5 mg/dL Normal 0.2-1.0 [facility] Comment on above: Performed By: #### G RUBIN, LIPID #### [facility] [address] [address] [address] Stephan Tavares Calcium [Mass/Vol] 9.3 mg/dL Normal 8.5-10.1 [facility] Comment on above: Performed By: #### G RUBIN, LIPID #### [facility] [address] [address] [address] Stephan Tavares Chloride [Moles/Vol] 103 mmol/L Normal 98-107 [facility] Comment on above: Performed By: #### G RUBIN, LIPID #### [facility] [address] [address] [address] Stephan Tavares CO2 [Moles/Vol] 24.9 mmol/L Normal 21.0-32.0 [facility] Comment on above: Performed By: #### G RUBIN, LIPID #### [facility] [address] [address] [address] Stephan Tavares Creatinine [Mass/Vol] 0.88 mg/dL Normal 0.55-1.02 [facility] Comment on above: Performed By: #### G RUBIN, LIPID #### [facility] [address] [address] [address] Stephan Tavares EGFR-AF NEW ZEALANDER >60 Normal >=60 [facility] Comment on above: Performed By: #### G RUBIN, LIPID #### [facility] [address] [address] [address] Stephan Tavares EGFR-NON AF [place] ZEALANDER >60 Normal >=60 [facility] Comment on above: Performed By: #### G RUBIN, LIPID #### [facility] [address] [address] [address] Stephan Tavares Globulin (S) [Mass/Vol] 3.9 g/dL Normal [facility] Comment on above: Performed By: #### G RUBIN, LIPID #### [facility] [address] [address] [address] Stephan Tavares Glucose [Mass/Vol] 79 mg/dL Normal 74-106 [facility] Comment on above: Performed By: #### G RUBIN, LIPID #### [facility] [address] [address] [address] Stephan Tavares Potassium [Moles/Vol] 3.4 mmol/L Critically low 3.5-5.1 [facility] Comment on above: Performed By: #### G RUBIN, LIPID #### [facility] [address] [address] [address] Stephan Tavares Protein [Mass/Vol] 8.3 g/dL Critically high 6.4-8.2 [facility] Comment on above: Performed By: #### G RUBIN, LIPID #### [facility] [address] [place], [place] [address] Dr. Stephan Tavares Sodium [Moles/Vol] 141 mmol/L Normal 136-145 [facility] Comment on above: Performed By: #### G RUBIN, LIPID #### [facility] [address] [place], [place] [address] Dr. Stephan Tavares Urea nitrogen [Mass/Vol] 10.0 mg/dL Normal 7.0-18.0 [facility] Comment on above: Performed By: #### G RUBIN, LIPID #### [facility] [address] [address] [address] Stephan Tavares Urea nitrogen/Creatinine [Mass ratio] 11.4 mg/mg Normal [facility] Comment on above: Performed By: #### G RUBIN, LIPID #### [facility] [address] [address] [address] Stephan Tavares US PELVIS TRANSVAGon 023 [...] by: ALVERTO PHAM Date: 2022-06-09 17:04 Normal [facility] HLA B 27on 05-28-2022 HLA-B27 Negative Normal [facility] Comment on above: Result Comment: HLA- B*27 Negative B27 allele interpretation for all loci based on IMGT/HLA database version 3.44 This test was developed and its performance characteristics determined by [employer]. It has not been cleared or approved by the Food and Drug Administration. [facility] CLIA ID Number [id number] . This test was performed using PCR (Polymerase Chain Reaction)/SSOP (Sequence Specific Oligonucleotide Probes) technique. SBT (Sequence Based Typing) and/or SSP (Sequence Specific Primers) may be used as supplemental methods when necessary. Please contact [facility] Customer Service at if you have any questions. . Director of HLA Laboratory Dr Tino Sampson, PhD Performed By: #### B MP, MG #### [facility] [address] [place] [address] Dr. Stephan Tavares LYME DISEASE, WESTERN BLOTon 05-27-2022 IgG P18 Ab. Absent [facility] Comment on above: Performed By: #### B MP, MG #### [facility] [address] [place] [address] Dr. Stephan Tavares IgG P23 Ab. Absent [facility] Comment on above: Performed By: #### B MP, MG #### [facility] [address] [place] [address] Dr. Stephan Tavares IgG P28 Ab. Absent [facility] Comment on above: Performed By: #### B MP, MG #### [facility] [address] [place] [address] Dr. Stephan Tavares IgG P30 Ab. Absent [facility] Comment on above: Performed By: #### B MP, MG #### [facility] [address] [place] [address] Dr. Stephan Tavares IgG P39 Ab. Absent [facility] Comment on above: Performed By: #### B MP, MG #### [facility] [address] [place] [address] Dr. Stephan Tavares IgG P41 Ab. Present [facility] Comment on above: Performed By: #### B MP, MG #### [facility] [address] [place] [address] Dr. Stephan Tavares IgG P45 Ab. Absent [facility] Comment on above: Performed By: #### B MP, MG #### [facility] [address] [place] [address] Dr. Stephan Tavares IgG P58 Ab. Absent [facility] Comment on above: Performed By: #### B MP, MG #### [facility] [address] [address] [address] Stephan Tavares IgG P66 Ab. Absent Normal [facility] Comment on above: Performed By: #### B MP, MG #### [facility] [address] [address] [address] Stephan Tavares IgG P93 Ab. Absent Normal [facility] Comment on above: Performed By: #### B MP, MG #### [facility] [address] [address] [address] Stephan Tavares IgM P23 Ab. Present Abnormal [facility] Comment on above: Performed By: #### B MP, MG #### [facility] [address] [place] [address] Dr. Stephan Tavares IgM P39 Ab. Absent Normal [facility] Comment on above: Performed By: #### B MP, MG #### [facility] [address] [place] [address] Dr. Stephan Tavares IgM P41 Ab. Present [facility] Comment on above: Performed By: #### B MP, MG #### [facility] [address] [place] [address] Dr. Stephan Tavares Lyme IgG WB Interp. Negative Normal [facility] Comment on above: Result Comment: Posi tive: 5 of the following Borrelia-specific bands: 18,23,28,30,39,41,45,58, 66, and 93. Negative: No bands or banding patterns which do not meet positive criteria. Performed By: #### B MP, MG #### [facility] [address] [place] [address] Dr. Stephan Tavares Lyme IgM WB Interp. Positive Abnormal [facility] Comment on above: Result Comment: Note [...] are those recommended by CDC/ASTPHLD. p23=Osp C, h20=whbroyeke . Note: Sera from individuals with the following may cross react in the Lyme Line Blot assays: other spirochetal diseases (periodontal disease, leptospirosis, relapsing fever, yaws, and pinta); connective autoimmune (Rheumatoid Arthritis and Systemic Lupus Erythematosus and also individuals with Antinuclear Antibody); other infections (Mcclure Spotted Fever; Prabhakar-Rangel Virus, and Cytomegalovirus). . . Please Note: Lyme immunoblot alone is not recommended for the diagnosis of Lyme disease. Current guidelines recommend the use of a two-tiered approach to Lyme serology testing to improve the sensitivity and specificity of testing. [facility] offers test code 585339 Lyme Disease Serology with Reflex to aid in the diagnosis of Lyme Disease. Performed By: #### B MP, MG #### [facility] [address] [place] [address] Dr. Stephan Tavares MISAEL EIA W/REFLEX 9 BIOMARKER Son 05-25-2022 MISAEL Direct Negative Normal Negative [facility] Comment on above: Performed By: #### A NARF9 #### [facility] [address] [place] [address] Dr. Stephan Tavares SLE PROFILE Aon 05-25-2022 Anti-DNA (DS) Ab Qn 2 IU/mL Normal 0-9 [facility] Comment on above: Result Comment: Nega tive <5 Equivocal 5 - 9 Positive >9 Performed By: #### S RONALDO #### [facility] [address] [place] [address] Dr. Stephan Tavares Antichromatin Antibodies <0.2 Normal 0.0-0.9 [facility] Comment on above: Performed By: #### S RONALDO #### [facility] [address] [place] [address] Dr. Stephan Tavares RA Latex Turbid. <10.0 Normal <14.0 [facility] Comment on above: Performed By: #### S RONALDO #### [facility] [address] [place] [address] Dr. Stephan Tavares LEAD MEDICAL TECHNOLOGIST Antibodies 0.3 AI Normal 0.0-0.9 [facility] Comment on above: Performed By: #### S RONALDO #### [facility] [address] [address] [address] Stephan Tavares Sjogren's Anti-SS-A <0.2 Normal 0.0-0.9 [facility] Comment on above: Performed By: #### S RONALDO #### [facility] [address] [place] [address] Dr. Stephan Tavares Sjogren's Anti-SS-B <0.2 Normal 0.0-0.9 [facility] Comment on above: Performed By: #### S RONALDO #### [facility] [address] [place] [address] Dr. Stephan Tavares Mc Antibodies <0.2 Normal 0.0-0.9 [facility] Comment on above: Performed By: #### S RONALDO #### [facility] [address] [place] [address] Dr. Stephan Tavares CBC AUTO DIFFon 05-22-2022 BASO # 0.0 103/ul Normal 0.0-0.1 [facility] Comment on above: Performed By: #### C BC #### [facility] [address] [place] [address] Dr. Stephan Tavares Basophils/100 WBC (Bld) 1.0 % Normal 0.2-2.0 [facility] Comment on above: Performed By: #### C BC #### [facility] [address] [place] [address] Dr. Stephan Tavares EO # 0.1 103/ul Normal 0.0-0.7 [facility] Comment on above: Performed By: #### C BC #### [facility] [address] [place] [address] Dr. Stephan Tavares Eosinophils/100 WBC (Bld) 1.3 % Normal 0.9-7.0 [facility] Comment on above: Performed By: #### C BC #### [facility] [address] [place] [address] Dr. Stephan Tavares Erythrocyte distribution width (RBC) [Ratio] 13.3 % Normal 11.0-15.0 [facility] Comment on above: Performed By: #### C BC #### [facility] [address] [place] [address] Dr. Stephan Tavares Hematocrit (Bld) [Volume fraction] 36.7 % Normal 36.0-48.0 [facility] Comment on above: Performed By: #### C BC #### [facility] [address] [place] [address] Dr. Stephan Tavares Hemoglobin (Bld) [Mass/Vol] 12.6 g/dL Normal 12.0-16.0 [facility] Comment on above: Performed By: #### C BC #### [facility] [address] [place] [address] Dr. Stephan Tavares IG # 0.00 10e3/ul Normal 0.00-0.03 [facility] Comment on above: Performed By: #### C BC #### [facility] [address] [place] [address] Dr. Stephan Tavares IG % 0.0 % Normal 0.0-0.5 [facility] Comment on above: Performed By: #### C BC #### [facility] [address] [place] [address] Dr. Stephan Taavres LYMPH # 1.2 103/ul Normal 1.2-3.8 [facility] Comment on above: Performed By: #### C BC #### [facility] [address] [place] [address] Dr. Stephan Tavares Lymphocytes/100 WBC (Bld) 30.9 % Normal 20.5-60.0 [facility] Comment on above: Performed By: #### C BC #### [facility] [address] [place] [address] Dr. Stephan Tavares MANUAL DIFF REQ NO Normal [facility] Comment on above: Performed By: #### C BC #### [facility] [address] [place] [address] Dr. tSephan Tavares MCH (RBC) [Entitic mass] 30.6 pg Normal 26.7-34.0 [facility] Comment on above: Performed By: #### C BC #### [facility] [address] [address] [address] Stephan Tavares MCHC (RBC) [Mass/Vol] 34.3 g/dL Normal 29.9-35.2 [facility] Comment on above: Performed By: #### C BC #### [facility] [address] [address] [address] Stephan Tavares MCV (RBC) [Entitic vol] 89.1 fL Normal 81.0-99.0 [facility] Comment on above: Performed By: #### C BC #### [facility] [address] [address] [address] Stephan Tavares MONO # 0.2 103/ul Critically low 0.3-0.8 [facility] Comment on above: Performed By: #### C BC #### [facility] [address] [place] [address] Dr. Stephan Tavares Monocytes/100 WBC (Bld) 5.9 % Normal 1.7-12.0 [facility] Comment on above: Performed By: #### C BC #### [facility] [address] [place] [address] Dr. Stephan Tavares NEUT # 2.4 103/ul Normal 1.4-6.5 [facility] Comment on above: Performed By: #### C BC #### [facility] [address] [place] [address] Dr. Stephan Tavares Neutrophils/100 WBC (Bld) 60.9 % Normal 43.0-75.0 [facility] Comment on above: Performed By: #### C BC #### [facility] [address] [place] [address] Dr. Stephan Tavares Platelet mean volume (Bld) [Entitic vol] 10.9 fL Normal 9.5-13.5 [facility] Comment on above: Performed By: #### C BC #### [facility] [address] [place] [address] Dr. Stephan Tavares PLT 250 103/ul Normal 150-450 [facility] Comment on above: Performed By: #### C BC #### [facility] [address] [place] [address] Dr. Stephan Tavaers RBC 4.12 106/ul Critically low 4.20-5.40 [facility] Comment on above: Performed By: #### C BC #### [facility] [address] [place] [address] Dr. Stephan Tavares WBC 3.9 103/ul Critically low 4.0-11.0 [facility] Comment on above: Performed By: #### C BC #### [facility] [address] [place] [address] Dr. Stephan Tavares CRPon 05-22-2022 CRP [Mass/Vol] mg/L Normal <=1.0 [facility] Comment on above: Performed By: #### G RUBIN, LIPID #### [facility] [address] [place] [address] Dr. Stephan Tavares SED RATE WESTERGRENon 2022 SED RATE 4 mm/hr Normal <=20 [facility] Comment on above: Performed By: #### S EDR #### [facility] [address] [place] [address] Dr. Stephan Tavares URIC ACID SERUMon 05-22-2022 Urate [Mass/Vol] 4.5 mg/dL Normal 2.6-6.0 [facility] Comment on above: Performed By: #### G RUBIN, LIPID #### [facility] [address] [place] [address] Dr. Stephan Tavares EGD - THERAPEUTIC, EUS, OR T UBE INTERVENTIONSon 03-06-2022 [facility] US PELVIS AND TRANSVAGon US PELVIS [...] BALDOMERO MARCELO Date: 2022-03-03 16:24 Normal [facility] CBC AUTO DIFFon 02-17-2022 BASO # 0.0 103/ul Normal 0.0-0.1 [facility] Comment on above: Performed By: #### G RUBIN, LIPID #### [facility] [address] [place] [address] Dr. Stephan Tavares Basophils/100 WBC (Bld) 0.8 % Normal 0.2-2.0 [facility] Comment on above: Performed By: #### G RUBIN, LIPID #### [facility] [address] [place] [address] Dr. Stephan Tavares EO # 0.1 103/ul Normal 0.0-0.7 [facility] Comment on above: Performed By: #### G RUBIN, LIPID #### [facility] [address] [place] [address] Dr. Stephan Tavares Eosinophils/100 WBC (Bld) 2.0 % Normal 0.9-7.0 [facility] Comment on above: Performed By: #### G RUBIN, LIPID #### [facility] [address] [place] [address] Dr. Stephan Tavares Erythrocyte distribution width (RBC) [Ratio] 13.2 % Normal 11.0-15.0 [facility] Comment on above: Performed By: #### G RUBIN, LIPID #### [facility] [address] [place] [address] Dr. Stephan Tavares Hematocrit (Bld) [Volume fraction] 36.2 % Normal 36.0-48.0 [facility] Comment on above: Performed By: #### G RUBIN, LIPID #### [facility] [address] [place] [address] Dr. Stephan Tavares Hemoglobin (Bld) [Mass/Vol] 12.6 g/dL Normal 12.0-16.0 [facility] Comment on above: Performed By: #### G RUBIN, LIPID #### [facility] [address] [place] [address] Dr. Stephan Tavares IG # 0.00 10e3/ul Normal 0.00-0.03 [facility] Comment on above: Performed By: #### G RUBIN, LIPID #### [facility] [address] [address] [address] Stephan Tavares IG % 0.0 % Normal 0.0-0.5 [facility] Comment on above: Performed By: #### G RUBIN, LIPID #### [facility] [address] [address] [address] Stephan Tavares LYMPH # 2.3 103/ul Normal 1.2-3.8 [facility] Comment on above: Performed By: #### G RUBIN, LIPID #### [facility] [address] [address] [address] Stephan Tavares Lymphocytes/100 WBC (Bld) 46.3 % Normal 20.5-60.0 [facility] Comment on above: Performed By: #### G RUBIN, LIPID #### [facility] [address] [place] [address] Dr. Stephan Tavares MANUAL DIFF REQ NO Normal [facility] Comment on above: Performed By: #### G RUBIN, LIPID #### [facility] [address] [place] [address] Dr. Stephan Tavares MCH (RBC) [Entitic mass] 29.2 pg Normal 26.7-34.0 [facility] Comment on above: Performed By: #### G RUBIN, LIPID #### [facility] [address] [place] [address] Dr. Stephan Tavares MCHC (RBC) [Mass/Vol] 34.8 g/dL Normal 29.9-35.2 [facility] Comment on above: Performed By: #### G RUBIN, LIPID #### [facility] [address] [place] [address] Dr. Stephan Tavares MCV (RBC) [Entitic vol] 84.0 fL Normal 81.0-99.0 [facility] Comment on above: Performed By: #### G RUBIN, LIPID #### [facility] [address] [place] [address] Dr. Stephan Tavares MONO # 0.4 103/ul Normal 0.3-0.8 [facility] Comment on above: Performed By: #### G RUBIN, LIPID #### [facility] [address] [address] [address] Stephan Tavares Monocytes/100 WBC (Bld) 8.7 % Normal 1.7-12.0 [facility] Comment on above: Performed By: #### G RUBIN, LIPID #### [facility] [address] [place] [address] Dr. Stephan Tavares NEUT # 2.1 103/ul Normal 1.4-6.5 [facility] Comment on above: Performed By: #### G RUBIN, LIPID #### [facility] [address] [place] [address] Dr. Stephan Tavares Neutrophils/100 WBC (Bld) 42.2 % Critically low 43.0-75.0 [facility] Comment on above: Performed By: #### G RUBIN, LIPID #### [facility] [address] [place] [address] Dr. Stephan Tavares Platelet mean volume (Bld) [Entitic vol] 11.1 fL Normal 9.5-13.5 [facility] Comment on above: Performed By: #### G RUBIN, LIPID #### [facility] [address] [place] [address] Dr. Stephan Tavares PLT 228 103/ul Normal 150-450 [facility] Comment on above: Performed By: #### G RUBIN, LIPID #### [facility] [address] [place] [address] Dr. Stephan Tavares RBC 4.31 106/ul Normal 4.20-5.40 [facility] Comment on above: Performed By: #### G RUBIN, LIPID #### [facility] [address] [place] [address] Dr. Stephan Tavares WBC 5.1 103/ul Normal 4.0-11.0 [facility] Comment on above: Performed By: #### G RUBIN, LIPID #### [facility] [address] [place] [address] Dr. Stephan Tavares MAGNESIUMon 02-17-2022 Magnesium [Mass/Vol] 1.8 mg/dL Normal 1.8-2.4 [facility] Comment on above: Performed By: #### B MP, MG #### [facility] [address] [address] [address] Stephan Tavares PROF CHEM 8 (BAS METB)on Anion gap [Moles/Vol] 16.1 mmol/L Normal [facility] Comment on above: Performed By: #### B MP, MG #### [facility] [address] [place] [address] Dr. Stephan Tavares Calcium [Mass/Vol] 8.7 mg/dL Normal 8.5-10.1 [facility] Comment on above: Performed By: #### B MP, MG #### [facility] [address] [place] [address] Dr. Stephan Tavares Chloride [Moles/Vol] 104 mmol/L Normal 98-107 [facility] Comment on above: Performed By: #### B MP, MG #### [facility] [address] [place] [address] Dr. Stephan Tavares CO2 [Moles/Vol] 22.0 mmol/L Normal 21.0-32.0 [facility] Comment on above: Performed By: #### B MP, MG #### [facility] [address] [place] [address] Dr. Stephan Tavares Creatinine [Mass/Vol] 0.74 mg/dL Normal 0.55-1.02 [facility] Comment on above: Performed By: #### B MP, MG #### [facility] [address] [place] [address] Dr. Stephan Tavares EGFR-AF NEW ZEALANDER >60 Normal >=60 [facility] Comment on above: Performed By: #### B MP, MG #### [facility] [address] [place] [address] Dr. Stephan Tavares EGFR-NON AF NEW ZEALANDER >60 Normal >=60 [facility] Comment on above: Performed By: #### B MP, MG #### [facility] [address] [place] [address] Dr. Stephan Tavares Glucose [Mass/Vol] 88 mg/dL Normal 74-106 [facility] Comment on above: Performed By: #### B MP, MG #### [facility] [address] [address] [address] Stephan Tavares Potassium [Moles/Vol] 4.1 mmol/L Normal 3.5-5.1 [facility] Comment on above: Result Comment: spec imen hemolysed. result could be spurious. suggest repeat. Performed By: #### B MP, MG #### [facility] [address] [address] [address] Stephan Tavares Sodium [Moles/Vol] 138 mmol/L Normal 136-145 [facility] Comment on above: Performed By: #### B MP, MG #### [facility] [address] [address] [address] Stephan Tavares Urea nitrogen [Mass/Vol] 12.0 mg/dL Normal 7.0-18.0 [facility] Comment on above: Performed By: #### B MP, MG #### [facility] [address] [place] [address] Dr. Stephan Tavares Urea nitrogen/Creatinine [Mass ratio] 16.2 mg/mg Normal [facility] Comment on above: Performed By: #### B MP, MG #### [facility] [address] [place] [address] Dr. Stephan Tavares XR Pelvis and Hip - right AP and Lateral frogon 02-13-2022 IMPRESSION: NORMAL RADIOGRAPHS Authorizer: JUANCARLOS Transcribe Date/Time: Feb 13 2022 11:16A Dictated by : RAYNA MARK MD This examination was interpreted and the report reviewed and electronically signed by: RAYNA MARK MD on Feb 13 2022 11:25AM [facility] DIVISION OF RADIOLOGY * * *Final Report* * * DATE OF EXAM: Feb 13 2022 10:10AM SOX 5352 - XR HIP 3V PELV+ AP/LAT RT / PROCEDURE REASON: Pain * * * * Physician Interpretation * * * * HISTORY (as given from clinical provider): Pain . Additional history provided by the performing technologist (if any): PT STATES HX OF R LABRUM REPAIR STILL HAVING PAINS BUT RADIATES UP FROM KNEE INTO HIP TECHNIQUE: XR HIP 3V PELV+ AP/LAT RT COMPARISON: 06/18/2021 RESULT: No evidence of fracture or other acute bone abnormality. Joints are normal. No erosions. No other significant abnormality. ------- DIVISION OF RADIOLOGY Provider, [facility] - 02/13/2022 * * *Final Report* * * DATE OF EXAM: Feb 13 2022 10:10AM SOX 5352 - XR HIP 3V PELV+ AP/LAT RT / PROCEDURE REASON: Pain * * * * Physician Interpretation * * * * HISTORY (as given from clinical provider): Pain . Additional history provided by the performing technologist (if any): PT STATES HX OF R LABRUM REPAIR STILL HAVING PAINS BUT RADIATES UP FROM KNEE INTO HIP TECHNIQUE: XR HIP 3V PELV+ AP/LAT RT COMPARISON: 06/18/2021 RESULT: No evidence of fracture or other acute bone abnormality. Joints are normal. No erosions. No other significant abnormality. ------- IMPRESSION IMPRESSION: NORMAL RADIOGRAPHS Authorizer: JUANCARLOS Transcribe Date/Time: Feb 13 2022 11:16A Dictated by : RAYNA MARK MD This examination was interpreted and the report reviewed and electronically signed by: RAYNA MARK MD on Feb 13 2022 11:25AM EST [facility] Radiology Study observation (narrative) [facility] XR Pelvis and Hip - right AP and Lateral frogOrdered By: f Provider on 02-13-2022 [facility] Basic metabolic 2000 panelon 01-28-2022 Anion gap [Moles/Vol] 10 mmol/L 9 - 18 mmol/L [facility] Calcium [Mass/Vol] 9.3 mg/dL 8.5 - 10.2 mg/dL [facility] Chloride [Moles/Vol] 105 mmol/L 97 - 105 mmol/L [facility] CO2 [Moles/Vol] 22 mmol/L 22 - 30 mmol/L [facility] Creatinine [Mass/Vol] 0.68 mg/dL 0.58 - 0.96 mg/dL [facility] Estimated Glomerular Filtration Rate 119 mL/min/1.73m >=60 mL/min/1.73m [facility] Glucose [Mass/Vol] 77 mg/dL 74 - 99 mg/dL [facility] Potassium [Moles/Vol] 4.3 mmol/L 3.7 - 5.1 mmol/L [facility] Sodium [Moles/Vol] 137 mmol/L 136 - 144 mmol/L [facility] Urea nitrogen [Mass/Vol] 9 mg/dL 7 - 21 mg/dL [facility] CBC panel Auto (Bld)on 01-28 Erythrocyte distribution width (RBC) [Ratio] 13.3 % 11.5 - 15.0 % [facility] Hematocrit (Bld) [Volume fraction] 42.9 % 36.0 - 46.0 % [facility] Hemoglobin (Bld) [Mass/Vol] 14.6 g/dL 11.5 - 15.5 g/dL [facility] MCH (RBC) [Entitic mass] 29.8 pg 26.0 - 34.0 pg [facility] MCHC (RBC) [Mass/Vol] 34.0 g/dL 30.5 - 36.0 g/dL [facility] MCV (RBC) [Entitic vol] 87.6 fL 80.0 - 100.0 fL [facility] Nucleated RBC (Bld) [#/Vol] <0.01 k/uL [facility] Platelet mean volume (Bld) [Entitic vol] 11.4 fL 9.0 - 12.7 fL [facility] Platelets (Bld) [#/Vol] 247 10*3/uL 150 - 400 k/uL [facility] RBC (Bld) [#/Vol] 4.90 10*6/uL 3.90 - 5.20 m/uL [facility] WBC (Bld) [#/Vol] 4.05 10*3/uL 3.70 - 11.00 k/u L [facility] EKGon 01-28-2022 Atrial Rate 61 BPM [facility] Calculated P [place] 76 degrees [facility] Calculated R [place] 73 degrees [facility] Calculated T [place] 57 degrees [facility] P-R Interval 144 ms [facility] QRS Duration 86 ms [facility] QT Interval 424 ms [facility] QTC Calculation (Bazett) 426 ms [facility] Ventricular Rate 61 BPM [facility] TYPE AND SCREEN,30 DAYon ABO O [facility] HIstorical Ab Scr Status Negative [facility] Rh Nom (Bld) Positive [facility] EGD - THERAPEUTIC, EUS, OR T UBE INTERVENTIONSon 12-25-2021 [facility] METANEPHRINES PLASMA FREEon 11-01-2021 Metanephrine, Pl <10.0 Normal 0.0-88.0 [facility] Comment on above: Performed By: #### G RUBIN, LIPID #### [facility] [address] [place] [address] Dr. Stephan Tavares Normetanephrine, Pl 19.4 pg/mL Normal 0.0-210.1 [facility] Comment on above: Performed By: #### G RUBIN, LIPID #### [facility] [address] [address] [address] Stephan Tavares CORTISOLon 10-28-2021 Cortisol 4.6 ug/dL [facility] Comment on above: Result Comment: Wesley isol AM 6.2 - 19.4 Cortisol PM 2.3 - 11.9 Performed By: #### C ORTISO #### [facility] [address] [address] [address] Stephan Tavares CBC AUTO DIFFon 10-27-2021 BASO # 0.0 103/ul Normal 0.0-0.1 [facility] Comment on above: Performed By: #### G RUBIN, LIPID #### [facility] [address] [address] [address] Stephan Tavares Basophils/100 WBC (Bld) 0.5 % Normal 0.2-2.0 [facility] Comment on above: Performed By: #### G RUBIN, LIPID #### [facility] [address] [address] [address] Stephan Tavares EO # 0.0 103/ul Normal 0.0-0.7 [facility] Comment on above: Performed By: #### G RUBIN, LIPID #### [facility] [address] [place] [address] Dr. Stephan Tavares Eosinophils/100 WBC (Bld) 0.5 % Critically low 0.9-7.0 [facility] Comment on above: Performed By: #### G RUBIN, LIPID #### [facility] [address] [place] [address] Dr. Stephan Tavares Erythrocyte distribution width (RBC) [Ratio] 12.8 % Normal 11.0-15.0 [facility] Comment on above: Performed By: #### G RUBIN, LIPID #### [facility] [address] [place] [address] Dr. Stephan Tavares Hematocrit (Bld) [Volume fraction] 37.5 % Normal 36.0-48.0 [facility] Comment on above: Performed By: #### G RUBIN, LIPID #### [facility] [address] [place] [address] Dr. Stephan Tavares Hemoglobin (Bld) [Mass/Vol] 12.9 g/dL Normal 12.0-16.0 [facility] Comment on above: Performed By: #### G RUBIN, LIPID #### [facility] [address] [place] [address] Dr. Stephan Tavares IG # 0.01 10e3/ul Normal 0.00-0.03 [facility] Comment on above: Performed By: #### G RUBIN, LIPID #### [facility] [address] [place] [address] Dr. Stephan Tavares IG % 0.2 % Normal 0.0-0.5 [facility] Comment on above: Performed By: #### G RUBIN, LIPID #### [facility] [address] [place] [address] Dr. Stephan Tavares LYMPH # 1.9 103/ul Normal 1.2-3.8 [facility] Comment on above: Performed By: #### G RUBIN, LIPID #### [facility] [address] [place] [address] Dr. Stephan Tavares Lymphocytes/100 WBC (Bld) 34.6 % Normal 20.5-60.0 [facility] Comment on above: Performed By: #### G RUBIN, LIPID #### [facility] [address] [place] [address] Dr. Stephan Tavares MANUAL DIFF REQ NO Normal [facility] Comment on above: Performed By: #### G RUBIN, LIPID #### [facility] [address] [place] [address] Dr. Stephan Tavares MCH (RBC) [Entitic mass] 30.3 pg Normal 26.7-34.0 [facility] Comment on above: Performed By: #### G RUBIN, LIPID #### [facility] [address] [place] [address] Dr. Stephan Tavares MCHC (RBC) [Mass/Vol] 34.4 g/dL Normal 29.9-35.2 [facility] Comment on above: Performed By: #### G RUBIN, LIPID #### [facility] [address] [place] [address] Dr. Stephan Tavares MCV (RBC) [Entitic vol] 88.0 fL Normal 81.0-99.0 [facility] Comment on above: Performed By: #### G RUBIN, LIPID #### [facility] [address] [place] [address] Dr. Stephan Tavares MONO # 0.4 103/ul Normal 0.3-0.8 [facility] Comment on above: Performed By: #### G RUBIN, LIPID #### [facility] [address] [place] [address] Dr. Stephan Tavares Monocytes/100 WBC (Bld) 6.6 % Normal 1.7-12.0 [facility] Comment on above: Performed By: #### G RUBIN, LIPID #### [facility] [address] [place] [address] Dr. Stephan Tavares NEUT # 3.2 103/ul Normal 1.4-6.5 [facility] Comment on above: Performed By: #### G RUBIN, LIPID #### [facility] [address] [place] [address] Dr. Stephan Tavares Neutrophils/100 WBC (Bld) 57.6 % Normal 43.0-75.0 [facility] Comment on above: Performed By: #### G RUBIN, LIPID #### [facility] [address] [address] [address] Stephan Tavares Platelet mean volume (Bld) [Entitic vol] 10.6 fL Normal 9.5-13.5 [facility] Comment on above: Performed By: #### G RUBIN, LIPID #### [facility] [address] [address] [address] Stephan Tavares PLT 249 103/ul Normal 150-450 [facility] Comment on above: Performed By: #### G RUBIN, LIPID #### [facility] [address] [place] [address] Dr. Stephan Tavares RBC 4.26 106/ul Normal 4.20-5.40 [facility] Comment on above: Performed By: #### G RUBIN, LIPID #### [facility] [address] [place] [address] Dr. Stephan Tavares WBC 5.6 103/ul Normal 4.0-11.0 [facility] Comment on above: Performed By: #### G RUBIN, LIPID #### [facility] [address] [place] [address] Dr. Stephan Tavares FREE T3on 10-27-2021 FREE T3 3.25 pg/mlL Normal 2.18-3.98 [facility] Comment on above: Performed By: #### G RUBIN, LIPID #### [facility] [address] [place] [address] Dr. Stephan Tavares FREE T4on 10-27-2021 Free T4 [Mass/Vol] 1.45 ng/dL Normal 0.76-1.46 [facility] Comment on above: Performed By: #### G RUBIN, LIPID #### [facility] [address] [place] [address] Dr. Stephan Tavares PROF CHEM 8 (BAS METB)on Anion gap [Moles/Vol] 13.1 mmol/L Normal [facility] Comment on above: Performed By: #### T SH, FT3, BMP #### [facility] [address] [address] [address] Stephan Tavares Calcium [Mass/Vol] 8.7 mg/dL Normal 8.5-10.1 [facility] Comment on above: Performed By: #### T JENI, FT3, BMP #### [facility] [address] [address] [address] Stephan Tavares Chloride [Moles/Vol] 104 mmol/L Normal 98-107 [facility] Comment on above: Performed By: #### T JENI, FT3, BMP #### [facility] [address] [address] [address] Stephan Tavares CO2 [Moles/Vol] 25.3 mmol/L Normal 21.0-32.0 [facility] Comment on above: Performed By: #### T JENI, FT3, BMP #### [facility] [address] [place] [address] Dr. Stephan Tavares Creatinine [Mass/Vol] 0.69 mg/dL Normal 0.55-1.02 [facility] Comment on above: Performed By: #### T JENI, FT3, BMP #### [facility] [address] [address] [address] Stephan Tavares EGFR-AF NEW ZEALANDER >60 Normal >=60 [facility] Comment on above: Performed By: #### T JENI, FT3, BMP #### [facility] [address] [place] [address] Dr. Stephan Tavares EGFR-NON AF NEW ZEALANDER >60 Normal >=60 [facility] Comment on above: Performed By: #### T JENI, FT3, BMP #### [facility] [address] [place] [address] Dr. Stephan Tavares Glucose [Mass/Vol] 87 mg/dL Normal 74-106 [facility] Comment on above: Performed By: #### T JENI, FT3, BMP #### [facility] [address] [place] [address] Dr. Stephan Tavares Potassium [Moles/Vol] 3.4 mmol/L Critically low 3.5-5.1 [facility] Comment on above: Performed By: #### T SH, FT3, BMP #### [facility] [address] [address] [address] Stephan Tavares Sodium [Moles/Vol] 139 mmol/L Normal 136-145 [facility] Comment on above: Performed By: #### T SH, FT3, BMP #### [facility] [address] [address] [address] Stephan Tavares Urea nitrogen [Mass/Vol] 9.0 mg/dL Normal 7.0-18.0 [facility] Comment on above: Performed By: #### T SH, FT3, BMP #### [facility] [address] [address] [address] Stephan Tavares Urea nitrogen/Creatinine [Mass ratio] 13.0 mg/mg Normal [facility] Comment on above: Performed By: #### T SH, FT3, BMP #### [facility] [address] [address] [address] Stephan Tavares TSHon 10-27-2021 TSH Qn m[IU]/L Critically low 0.358-3.740 [facility] Comment on above: Performed By: #### G RUBIN, LIPID #### [facility] [address] [place] [address] SINUSES WO CONon [...] by: ALVERTO PHAM Date: 2021-10-06 06:19 Normal [facility] Dental Nerve Blockon 022 Pablo Atwood DO 08/30/2021 4:20 AM Dental Nerve Block Date/Time: 08/30/2021 4:19 AM Performed by: Pablo Atwood DO Authorized by: Pablo Atwood DO Consent: Consent obtained: Verbal Consent given by: Patient Risks, benefits, and alternatives were discussed: yes [place] protocol: Patient identity confirmed: Verbally with patient Indications: Indications: dental pain Location: Block type: Posterior superior alveolar Laterality: Left Procedure details: Syringe type: Controlled syringe Needle gauge: 27 G Anesthetic injected: Bupivacaine 0.5% WITH epi Post-procedure details: Outcome: Anesthesia achieved Procedure completion: Tolerated well, no immediate complications [employer] Phone: [employer] Phone: GLUCOSE BLOODon 08-21-2021 Glucose [Mass/Vol] 79 mg/dL Normal 74-106 [facility] Comment on above: Performed By: #### G RUBIN, LIPID #### [facility] [address] [address] [address] Stephan Tavares LIPID PROFILEon 08-21-2021 CHOL-HDL RATIO NORM SEE BELOW Normal [facility] Comment on above: Result Comment: 3.3 - 4.4 LOW RISK 4.4 - 7.1 AVERAGE RISK 7.1 - 11.0 MODERATE RISK >11.0 HIGH RISK Performed By: #### G RUBIN, LIPID #### [facility] [address] [place], [place] [address] Dr. Stephan Tavares Cholesterol [Mass/Vol] 163 mg/dL Normal <=200 [facility] Comment on above: Performed By: #### G RUBIN, LIPID #### [facility] [address] [address] [address] Stephan Tavares Cholesterol in HDL [Mass/Vol] 71 mg/dL Critically high 40-60 [facility] Comment on above: Performed By: #### G RUBIN, LIPID #### [facility] [address] [address] [address] Stephan Tavares Cholesterol in LDL [Mass/Vol] 67.8 mg/dL Normal [facility] Comment on above: Performed By: #### G RUBIN, LIPID #### [facility] [address] [address] [address] Stepahn Tavares Cholesterol.total/C holesterol in HDL [Mass ratio] 2.3 {ratio} Normal [facility] Comment on above: Performed By: #### G RUBIN, LIPID #### [facility] [address] [address] [address] Stephan Tavares HDL NORMAL > or = 60 mg/dl - LOW CARDIOVASCULAR RISK <40 mg/dl - HIGH CARDIOVASCULAR RISK Normal [facility] Comment on above: Performed By: #### G RUBIN, LIPID #### [facility] [address] [address] [address] Stephan Tavares LDL CALC NORMAL SEE BELOW Normal [facility] Comment on above: Result Comment: <100 mg/dl OPTIMAL 100 - 129 mg/dl NEAR OR ABOVE OPTIMAL 130 - 159 mg/dl BORDERLINE HIGH 160 - 189 mg/dl HIGH >190 mg/dl VERY HIGH Performed By: #### G RUBIN, LIPID #### [facility] [address] [address] [address] Stephan Tavares Triglyceride [Mass/Vol] 121 mg/dL Normal <=150 [facility] Comment on above: Performed By: #### G RUBIN, LIPID #### [facility] [address] [address] [address] Stephan Tavares VLDL CALC 24.2 mg/dL Normal [facility] Comment on above: Performed By: #### G RUBIN, LIPID #### [facility] [address] [address] [address] Stephan Tavares US SINGLE QUAD RT [...] ALVERTO PHAM Date: 2021-08-21 17:24 Normal [facility] XR SINUSES 3 VIEWS OR GREATE [...] ALVERTO PHAM Date: 2021-08-20 13:05 Normal [facility] Glucose - FINGER STICKon Glucose [Mass/Vol] 84 mg/dL [facility] Other VAGINITIS/VAGINOSIS DNA PROB Ryder 08-01-2021 Alea species Positive Abnormal Negative [facility] Comment on above: Performed By: #### G RUBIN, LIPID #### [facility] [address] [address] [address] Stephan Tavares Gardnerella vaginalis Negative Normal Negative [facility] Comment on above: Performed By: #### G RUBIN, LIPID #### [facility] [address] [address] [address] Stephan Tavares Trichomonas vaginalis Negative Normal Negative [facility] Comment on above: Performed By: #### G RUBIN, LIPID #### [facility] [address] [address] [address] Stephan Tavares APTTon 07-27-2021 aPTT Coag (Bld) [Time] 30.9 s [facility] Comment on above: IV Heparin Therapy Range: 62.0-94.0 CBC with Auto Differentialon 07-27-2021 Absolute Eos # 0.06 [facility] Absolute Immature Granulocyte <0.03 [facility] Absolute Lymph # 1.49 [facility] Absolute [place] # 0.27 [facility] Basophils (Bld) [#/Vol] 0.04 10*3/uL [facility] Basophils/100 WBC (Bld) 1 % 0 - 2 % [facility] Eosinophils/100 WBC (Bld) 1 % 1 - 4 % [facility] Hematocrit (Bld) [Volume fraction] 38.8 % 36.3 - 47.1 % [facility] Hemoglobin (Bld) [Mass/Vol] 12.7 g/dL 11.9 - 15.1 g/dL [facility] Immature granulocytes/100 WBC (Bld) 0 % 0 [facility] Interpretation and review of laboratory results Abnormal [facility] Lymphocytes/100 WBC (Bld) 36 % 24 - 43 % [facility] MCH (RBC) [Entitic mass] 28.9 pg 25.2 - 33.5 pg [facility] MCHC (RBC) [Mass/Vol] 32.7 g/dL 28.4 - 34.8 g/dL [facility] MCV (RBC) [Entitic vol] 88.4 fL 82.6 - 102.9 fL [facility] Monocytes/100 WBC (Bld) 6 % 3 - 12 % [facility] NRBC Automated 0.0 0.0 per [address] [facility] Platelet distribution width (Bld) [Ratio] 14.5 % High 11.8 - 14.4 % [facility] Platelet mean volume (Bld) [Entitic vol] 10.8 fL 8.1 - 13.5 fL [facility] Platelets (Bld) [#/Vol] 251 10*3/uL [facility] RBC (Bld) [#/Vol] 4.39 10*6/uL 3.95 - 5.11 m/uL [facility] Segmented neutrophils/100 WBC (Bld) 56 % 36 - 65 % [facility] Segs Absolute 2.33 [facility] WBC (Bld) [#/Vol] 4.2 10*3/uL [facility] CT ABDOMEN PELVIS W IV CONTR AST Additional Contrast? Noneon 07-27-2021 No acute abdominal or pelvic abnormality. [facility] EXAMINATION: CT OF THE ABDOMEN AND [...] unremarkable. There is no acute osseous abnormality. [facility] Devon Moura MD - 07/27/2021 EXAMINATION: [...] IMPRESSION: No acute abdominal or pelvic abnormality. [employer] Work Phone: Radiology Study observation (narrative) [employer] Phone: CT ABDOMEN PELVIS W IV CONTR AST Additional Contrast? NoneOrdered By: Devon Moura on 07-27-2021 [employer] Work Phone: Comprehensive Metabolic Pane l w/ Reflex to MGon 07-27-2021 Albumin [Mass/Vol] 4.7 g/dL 3.5 - 5.2 g/dL [facility] Albumin/Globulin [Mass ratio] 1.8 {ratio} [employer] ALP (Bld) [Catalytic activity/Vol] 62 U/L 35 - 104 U/L [facility] ALT [Catalytic activity/Vol] 14 U/L 5 - 33 U/L [facility] Anion gap [Moles/Vol] 11 mmol/L 9 - 17 mmol/L [facility] AST [Catalytic activity/Vol] 18 U/L <32 [facility] Bilirubin [Mass/Vol] 0.52 mg/dL 0.3 - 1.2 mg/dL [facility] Calcium [Mass/Vol] 9.5 mg/dL 8.6 - 10.4 mg/dL [facility] Chloride [Moles/Vol] 101 mmol/L 98 - 107 mmol/L [facility] CO2 [Moles/Vol] 25 mmol/L 20 - 31 mmol/L [facility] Creatinine [Mass/Vol] 0.76 mg/dL 0.50 - 0.90 mg/dL [facility] Free PSA/Total PSA [Mass fraction] 7.3 g/dL 6.4 - 8.3 g/dL [facility] GFR >60 >60 mL/min [facility] GFR Non- >60 >60 mL/min [facility] Glucose [Mass/Vol] 86 mg/dL 70 - 99 mg/dL [facility] Interpretation and review of laboratory results Abnormal [facility] Potassium [Moles/Vol] 4.0 mmol/L 3.7 - 5.3 mmol/L [facility] Sodium [Moles/Vol] 137 mmol/L 135 - 144 mmol/L [facility] Urea nitrogen (BldV) [Mass/Vol] 16 mg/dL 6 - 20 mg/dL [facility] Urea nitrogen/Creatinine (Bld) [Mass ratio] 21 High [facility] Laboratory - Chemistry and C hemistry - challengeon 07-27-2021 GFR/1.73 sq M.predicted MDRD (S/P/Bld) [Vol rate/Area] [facility] Comment on above: Average GFR for 30-3 9 years old: 107 mL/min/1.73sq m Chronic Kidney Disease: <60 mL/min/1.73sq m Kidney failure: <15 mL/min/1.73sq m eGFR calculated using average adult body mass. Additional eGFR calculator available at: http://www.BeatSwitch/multiple_crcl_2012.htm Stage 1: Some kidney damage normal GFR Stage 2: Mild kidney damage GFR 60-89 Stage 3: Moderate kidney damage GFR 30-59 Stage 4: Severe kidney damage GFR 15-29 Stage 5: Severe kidney damage GFR <15 ESRD - chronic treatment by dialysis or transplant Lactic Acidon 07-27-2021 Lactate [Moles/Vol] 1 mmol/L 0.5 - 2.2 mmol/L [employer] [facility] Lipaseon 07-27-2021 Lipase [Catalytic activity/Vol] 49 U/L 13 - 60 U/L [employer] [facility]Individual Digital Microscopic Urinalysison - [employer] [facility] CAMPUSIndividual Digital Epithelial Cells UA 0 TO 2 [facility] RBC, UA 0 TO 2 [employer] [facility] WBC, UA 0 TO 2 [employer] [facility] No Panel Informationon 07-27 [employer] [facility] [employer] [facility] CAMPUSIndividual Digital Protime-INRon 07-27-2021 INR Coag (Bld) [Relative time] 1.1 {INR} [employer] [facility] CENTERIndividual Digital Comment on above: Non-therapeutic Range: INR = 0.9-1.2 Therapeutic Range: Moderate Anticoagulant Intensity: INR = 2.0-3.0 High Anticoagulant Intensity: INR = 2.5-3.5 PT Coag (PPP) [Time] 14.2 s [employer] [facility]US[facility] Urinalysis with Reflex to Cu ltureon 07-27-2021 Bilirubin Urine Negative NEGATIVE [facility] [employer] [facility] Color, UA Yellow Yellow [employer] [facility] Glucose, Ur Negative NEGATIVE [employer] [facility] Ketones Ql (U) Negative NEGATIVE [employer] [facility] Leukocyte esterase Test strip Ql (U) Negative NEGATIVE [employer] [facility] Nitrite, Urine Negative NEGATIVE [employer] [facility] pH, UA 7.5 [employer] [facility]ENTER[facility] Protein, UA Negative NEGATIVE [employer] [facility]St[facility]Cells [facility] Specific [place], UA 1.010 [employer] SECSt[facility]Cells [facility] Turbidity UA Clear Clear [facility] Urine Hgb Negative NEGATIVE [facility] Urobilinogen, Urine Normal Normal [facility] XR CHEST PORTABLEon 07-28-19 No acute process. [facility] EXAMINATION: ONE XRAY VIEW [...] The osseous structures are without acute process. [facility] Goldie Grande MD - [...] without acute process. IMPRESSION: No acute process. [facility] HOSPITALSpotjournal Work Phone: Radiology Study observation (narrative) [facility] Work Phone: XR CHEST PORTABLEOrdered By: Goldie Grande on 07-27-2021 [facility] Work Phone: XR HIP GENERAL 3V PELV/AP/LA T RIGHTon 06-18-2021 [facility] XR Pelvis and Hip - right AP and Lateral frogon 06-18-2021 IMPRESSION: NO ACUTE BONY ABNORMALITY Authorizer: [employer] Transcribe Date/Time: Jun 18 2021 11:09A Dictated by : SANTA SHIN MD This examination was interpreted and the report reviewed and electronically signed by: SANTA SHIN MD on Jun 18 2021 11:10AM EST [email or web address] E_DIVISION OF RADIOLOGY * * *Final Report* * * DATE OF EXAM: Jun 18 2021 10:35AM SOX 5352 - XR HIP 3V PELV+ AP/LAT RT / PROCEDURE REASON: Acetabular labrum tear, right, initial encounter * * * * Physician Interpretation * * * * HISTORY: Acetabular labrum tear, right, initial encounter TECHNIQUE: Pelvis and right hip, 3 views COMPARISON: None. RESULT: There is no acute fracture. Normal right hip joint space. Normal left hip joint space. Normal sacroiliac joints. [email or web address] E_DIVISION OF RADIOLOGY Provider, [facility] [place] - 06/18/2021 * * *Final Report* * * DATE OF EXAM: Jun 18 2021 10:35AM SOX 5352 - XR HIP 3V PELV+ AP/LAT RT / PROCEDURE REASON: Acetabular labrum tear, right, initial encounter * * * * Physician Interpretation * * * * HISTORY: Acetabular labrum tear, right, initial encounter TECHNIQUE: Pelvis and right hip, 3 views COMPARISON: None. RESULT: There is no acute fracture. Normal right hip joint space. Normal left hip joint space. Normal sacroiliac joints. IMPRESSION IMPRESSION: NO ACUTE BONY ABNORMALITY Authorizer: [facility] Transcribe Date/Time: Jun 18 2021 11:09A Dictated by : SANTA SHIN MD This examination was interpreted and the report reviewed and electronically signed by: SANTA SHIN MD on Jun 18 2021 11:10AM EST [facility] Radiology Study observation (narrative) [facility] XR Pelvis and Hip - right AP and Lateral frogOrdered By: Ccf Provider on 06-18-2021 [facility] XR chest 2V*on 03-31-2021 XR chest 2V* [facility] [employer] Other XR chest 2V* [facility] [employer] Other XR chest 2V* [address] [facility] [employer] Other XR chest 2V* [place] [address] [facility] [employer] Other XR chest 2V* XRay Report [facility] [employer] Other XR chest 2V* Signed [facility] [employer] Other XR chest 2V* Patient: Abbey Garcia MR#: [id number] [employer] Other XR chest 2V* : 1990 Acct:[id number] [employer] Other XR chest 2V* Age/Sex: 30 / F ADM Date: 03/31/21 [employer] Other XR chest 2V* Loc: XDCLY Room: Type: [facility] [employer] Other XR chest 2V* Attending Dr: Shanna June [facility] Other XR chest 2V* Ordering Provider: [facility]NA JUNE [facility] [employer] [facility] Other XR chest 2V* Date of Service: 03/31/21 [employer] Other XR chest 2V* XR/XR chest 2V*: SOB (shortness of breath) [employer] Other XR chest 2V* Copies to: SHANNA JUNE [facility] [employer] Other XR chest 2V* PA AND LATERAL CHEST: [employer] Other XR chest 2V* CLINICAL HISTORY: Wheezing and shortness of breath [employer] Other XR chest 2V* COMPARISON: 03/05/2020 [employer] Other XR chest 2V* There is no focal parenchymal consolidation, effusion or pneumothorax. The cardiac, hilar and [employer] Other XR chest 2V* mediastinal silhouettes are within normal limits. There is no vascular congestion. The [employer] Other XR chest 2V* visualized bony thorax is intact. [employer] Other XR chest 2V* XR/XR chest 2V* [employer] Other XR chest 2V* IMPRESSION: [employer] Other XR chest 2V* NO ACUTE CARDIOPULMONARY ABNORMALITY. [employer] Other XR chest 2V* Impression dictated by: Maricruz Hutchinson M.D.03/31/2021 11:32 AM [employer] Other XR chest 2V* Dictation Location: RADIO-PC-10 [employer] Other XR chest 2V* Transcribed By: SULEMA 03/31/21 [facility] [employer] Other XR chest 2V* Dictated By: Maricruz Hutchinson MD 03/31/21 [facility] [employer] Other XR chest 2V* Signed By: [employer] Other XR chest 2V* 03/31/21 [facility] [employer] Other Urinalysis - AUTOMATEDon Appearance (U) clear [employer] Other Bilirubin Ql (U) Negative [employer] Other Color (U) yellow [employer] [facility] Other Glucose Ql (U) Negative [employer] Other Hemoglobin Ql (U) Negative [employer] Other Ketones Ql (U) Negative [employer] Other Leukocyte esterase Test strip Ql (U) Negative [employer] Other Nitrite Ql (U) Negative [employer] Other pH (U) 7.0 [pH] [employer] Other Protein Ql (U) Negative [employer] Other Specific gravity (U) [Rel density] 1.015 [employer] Other Urobilinogen (U) [Mass/Vol] 0.2 mg/dL [employer] Other XR FINGER RIGHT (MIN 2 VIEWS )Ordered By: Vicky Olmedo on 12-14-2020 No acute osseous abnormality. [facility] Phone: EXAMINATION: THREE XRAY VIEWS OF THE RIGHT FINGERS 12/14/2020 3:26 pm COMPARISON: None. HISTORY: ORDERING SYSTEM PROVIDED HISTORY: shut right thumb in car door TECHNOLOGIST PROVIDED HISTORY: shut right thumb in car door FINDINGS: There is no evidence of acute fracture. There is normal alignment. No acute joint abnormality. No focal osseous lesion. No focal soft tissue abnormality. [facility] Phone: Yusuf, pn Incoming Radiant Results From [employer] - 12/14/2020 3:33 PM EDT EXAMINATION: THREE [...] tissue abnormality. IMPRESSION: No acute osseous abnormality. [facility] Phone: [facility] Phone: CBC, EDIF, PLATELETOrdered B y: Juanito Laird on 07-02-2020 ABSOLUTE BASOPHIL COUNT 0.0 10*3/uL 0.0 - 0.2 10*3/uL [employer] System Basophils/100 WBC (Bld) 0.6 % 0.0 - 2.0 % [employer] [facility] Differential cell count method Nom (Bld) AUTO DIFF % [employer] [facility] Eosinophils (Bld) [#/Vol] 0.10 10*3/uL 0.0 - 0.7 10*3/uL [employer] [facility] Eosinophils/100 WBC (Bld) 1.3 % 0.0 - 11.0 % [facility] Erythrocyte distribution width (RBC) [Ratio] 14.1 % 11.5 - 14.5 % [facility] Hematocrit (Bld) [Volume fraction] 36.2 % 36.0 - 48.0 % [facility] Hemoglobin (Bld) [Mass/Vol] 12.1 g/dL [facility] Lymphocytes (Bld) [#/Vol] 1.70 10*3/uL 1.2 - 3.4 10*3/uL [facility] Lymphocytes/100 WBC (Bld) 23.4 % 20.0 - 55.0 % [facility] MCH (RBC) [Entitic mass] 28.1 pg 26.0 - 35.[address] [facility] MCHC (RBC) [Mass/Vol] 33.4 g/dL [facility] MCV (RBC) [Entitic vol] 84.[address] [facility] Monocytes (Bld) [#/Vol] 0.5 10*3/uL 0.0 - 0.7 10*3/uL [facility] Monocytes/100 WBC (Bld) 6.4 % 0.0 - 10.0 % [facility] Neutrophils (Bld) [#/Vol] 5.0 10*3/uL 1.4 - 6.5 10*3/uL [facility] Neutrophils/100 WBC (Bld) 68.3 % 37.0 - 75.0 % [facility] Platelet mean volume (Bld) [Entitic vol] 8.[address] [facility] Platelets (Bld) [#/Vol] 295 10*3/uL 130.0 - 400.0 10*3/uL [facility] RBC (Bld) [#/Vol] 4.31 10*6/uL 4.0 - 5.4 10*6/u L [facility] WBC (Bld) [#/Vol] 7.3 10*3/uL 3.6 - 11.0 10*3/u L [facility] COMPREHENSIVE METABOLIC PANE LOrdered By: Juanito Laird on 07-02-2020 Albumin [Mass/Vol] 4.1 G/dl 3.5 - 5.0 G/dl [facility] Albumin/Globulin [Mass ratio] 1.3 {ratio} [facility] ALP [Catalytic activity/Vol] 52 U/L [facility] ALT [Catalytic activity/Vol] 16 U/L [facility] AST [Catalytic activity/Vol] 29 U/L [facility] Bilirubin [Mass/Vol] 0.5 mg/dL [facility] Calcium [Mass/Vol] 9.2 mg/dL [facility] Chloride [Moles/Vol] 102 mmol/L [facility] CO2 [Moles/Vol] 22 mmol/L [facility] Creatinine [Mass/Vol] 0.59 mg/dL [facility] GFR COMMENT Average GFR for 30-39 years old = 109. [facility] Comment on above: Chronic Kidney disea se, GFR = <60. Kidney failure, GFR = <15. The GFR estimate is not adjusted for extreme body surface area or acute process, nor has it been validated for women or ethnic groups other than and . GFR/1.73 sq M.predicted among blacks MDRD (S/P/Bld) [Vol rate/Area] mL/min/{1.73_m2} ml/min/1.73sq.m [facility] GFR/1.73 sq M.predicted among non-blacks MDRD (S/P/Bld) [Vol rate/Area] mL/min/{1.73_m2} ml/min/1.73sq.m [facility] Glucose post fast [Mass/Vol] 84 mg/dL [facility] Comment on above: NORMAL <100 mg/dL PREDIABETES 101-126 mg/dL DIABETES 126 mg/dL or higher Interpretation and review of laboratory results Abnormal [facility] Potassium [Moles/Vol] 4.1 mmol/L [facility] Protein [Mass/Vol] 7.3 g/dL [facility] Sodium [Moles/Vol] 134 mmol/L Low [facility] Urea nitrogen [Mass/Vol] 15 mg/dL [facility] CT ABDOMEN/PELVIS WITHOUT CO NTRASTOrdered By: Juanito Laird on 07-02-2020 IMPRESSION: CT abdomen and CT pelvis studies demonstrate findings compatible with hepatic cysts as described, similar to prior study. Finding is compatible with complex right adnexal cyst as noted. Correlate for mild gastroenteritis. [facility] EXAMINATION: CT ABDOMEN/PELVIS WITHOUT CONTRAST [...] bowel content. Bony structures are grossly intact. [employer] User, Interfaces - 07/02/2020 2:22 PM EDT [...] cyst as noted. Correlate for mild gastroenteritis. [facility] HCG ( test) Ql (U)O rdered By: Vaughn Ceja on 07-02-[address] [facility] HCG QUALITATIVE, URINEOrdere d By: Vaughn Ceja on 07-02-2020 HCG ( test) Ql (U) Negative NEGATIVE [facility] LACTATE, BLOODOrdered By: Catherine Laird on 07-02-2020 Lactate [Moles/Vol] 1.0 mmol/L [facility] LIPASEOrdered By: Juanito rosen on 07-02-2020 Lipase [Catalytic activity/Vol] 32 U/L 23 - 300 U/L [facility] No Panel InformationOrdered By: Juanito Laird on 07-02-[address] [facility] PROTIME-INROrdered By: Gautam Laird on 07-02-2020 INR Coag (PPP) [Relative time] 0.95 {INR} [facility] Comment on above: 2.0-3.0 THERAPEUTIC RANGE 2.5-3.5 MECHANICAL VALVE RANGE PT Coag (PPP) [Time] 12.9 s [facility] TYPE AND SCREEN - POSSIBLE T RANSFUSIONOrdered By: Juanito Laird on 07-02-2020 ABO and Rh group Nom (Bld ) Positive [facility] ARM BAND NUMBER [id number] [facility] Blood group antibody screen Ql Negative [facility] EXPIRATION DATE 07/05/2020,2359 [facility] URINALYSIS, MACROOrdered By: Vaughn Ceja on 07-02-2020 Bilirubin Ql (U) Negative NEGATIVE [facility] Clarity (U) SLIGHTLY CLOUDY Abnormal CLEAR [facility] Color (U) PINK Abnormal YELLOW [facility] Glucose Test strip (U) [Mass/Vol] Negative NEGATIVE mg/dl [facility] Hemoglobin Ql (U) LARGE Abnormal NEGATIVE [facility] Interpretation and review of laboratory results Abnormal [facility] Ketones (U) [Mass/Vol] Negative NEGATIVE mg/dl [facility] Leukocyte esterase Test strip Ql (U) TRACE Abnormal NEGATIVE [facility] Nitrite Ql (U) Negative NEGATIVE [facility] pH (U) 5.5 [pH] [facility] Protein Ql (U) 100 mg/dl Abnormal NEGATIVE [facility] Specific gravity (U) [Rel density] <1.[address] [facility] Urobilinogen (U) [Mass/Vol] 0.2 mg/dL [facility] URINE MICROSCOPICOrdered By: Vaughn Ceja on 07-02-2020 Bacteria LM.HPF (Urine sed) [#/Area] TRACE Abnormal NEGATIVE [facility] Casts LM.LPF (Urine sed) [#/Area] NONE NONE /LPF [facility] Crystals LM Nom (Urine sed) NONE NONE [facility] Epithelial cells LM Ql (Urine sed) 10 TO 20 /HPF [facility] Interpretation and review of laboratory results Abnormal [facility] Mucus Ql (Urine sed) Negative NEGATIVE [facility] RBC LM.HPF (Urine sed) [#/Area] TOO NUMEROUS TO COUNT Abnormal NEGATIVE /HPF [facility] Urine sediment comments LM John (Urine sed) POSSIBLY CONTAMINATED SPECIMEN, CULTURE MUST BE ORDERED SEPARATELY IF DEEMED NECESSARY. [facility] WBC LM.HPF (Urine sed) [#/Area] 1 TO 5 NEGATIVE /HPF [facility] US PELVIC WITH TRANSVAGINAL WITH DOPPLEROrdered By: Juanito Laird on 07-02-2020 IMPRESSION: 5.5 cm septated right ovarian cyst No evidence of right ovarian torsion Nonvisualization of the left ovary 4.1 cm myometrial masses, leiomyoma suspected [facility] EXAM: US PELVIC WITH TRANSVAGINAL [...] to patient body habitus and bowel gas [facility] User, Interfaces - 07/02/2020 4:10 [...] ovary 4.1 cm myometrial masses, leiomyoma suspected [facility] CBC, EDIF, PLATELETon 2019 ABSOLUTE BASOPHIL COUNT 0.0 10*3/uL 0 - 0.2 10*3/uL [facility] Basophils/100 WBC (Bld) 0.6 % 0 - 2 % [facility] Differential cell count method Nom (Bld) AUTO DIFF % [facility] Eosinophils (Bld) [#/Vol] 0.10 10*3/uL 0 - 0.7 10*3/uL [facility] Eosinophils/100 WBC (Bld) 2.4 % 0 - 11 % [facility] Erythrocyte distribution width (RBC) [Ratio] 15.2 % High 11.5 - 14.5 % [facility] Hematocrit (Bld) [Volume fraction] 39.4 % 36 - 48 % [facility] Hemoglobin (Bld) [Mass/Vol] 12.7 g/dL [facility] Interpretation and review of laboratory results Abnormal [facility] Lymphocytes (Bld) [#/Vol] 1.50 10*3/uL 1.2 - 3.4 10*3/uL [facility] Lymphocytes/100 WBC (Bld) 25.8 % 20 - 55 % [facility] MCH (RBC) [Entitic mass] 28.3 pg 26 - [address] [facility] MCHC (RBC) [Mass/Vol] 32.3 g/dL [facility] MCV (RBC) [Entitic vol] 87.[address] [facility] Monocytes (Bld) [#/Vol] 0.3 10*3/uL 0 - 0.7 10*3/uL [facility] Monocytes/100 WBC (Bld) 5.6 % 0 - 10 % [facility] Neutrophils (Bld) [#/Vol] 3.7 10*3/uL 1.4 - 6.5 10*3/uL [facility] Neutrophils/100 WBC (Bld) 65.6 % 37 - 75 % [facility] Platelet mean volume (Bld) [Entitic vol] 9.2 fL [facility] Platelets (Bld) [#/Vol] 277 10*3/uL 130 - 400 10*3/uL [facility] RBC (Bld) [#/Vol] 4.50 10*6/uL 4 - 5.4 10*6/uL [facility] WBC (Bld) [#/Vol] 5.7 10*3/uL 3.6 - 11 10*3/uL [facility] CHEM 7 (LYTES,BUN,CREA,GLUC) on 01-30-2020 Chloride [Moles/Vol] 106 mmol/L [facility] CO2 [Moles/Vol] 20 mmol/L Low [facility] Creatinine [Mass/Vol] 0.67 mg/dL [facility] GFR/1.73 sq M predicted among blacks MDRD (S/P/Bld) [Vol rate/Area] mL/min/{1.73_m2} ml/min/1.73sq.m [facility] GFR/1.73 sq M predicted among non-blacks MDRD (S/P/Bld) [Vol rate/Area] mL/min/{1.73_m2} ml/min/1.73sq.m [facility] GFR/1.73 sq M predicted among non-blacks MDRD (S/P/Bld) [Vol rate/Area] Average GFR for 30-39 years old = 109. [facility] Comment on above: Chronic Kidney disea se, GFR = <60. Kidney failure, GFR = <15. The GFR estimate is not adjusted for extreme body surface area or acute process, nor has it been validated for women or ethnic groups other than and . Glucose post fast [Mass/Vol] 78 mg/dL [facility] Comment on above: NORMAL <100 mg/dL PREDIABETES 101-126 mg/dL DIABETES 126 mg/dL or higher Interpretation and review of laboratory results Abnormal [facility] Potassium [Moles/Vol] 3.8 mmol/L [facility] Sodium [Moles/Vol] 138 mmol/L [facility] Urea nitrogen [Mass/Vol] 8 mg/dL [facility] CT ABDOMEN/PELVIS WITH CONTR Daljit [...] unchanged. 4. Prior cholecystectomy and appendectomy. [address] [facility] EXAMINATION: CT ABDOMEN/PELVIS WITH CONTRAST [...] lesions. No compression fracture is identified. [facility] IMPRESSION: 1. Scattered fluid throughout nondilated small bowel may correlate with enteritis or mild ileus pattern. No bowel obstruction. 2. Left ovarian cyst measures 4.7 cm. Pelvic ultrasound could be considered, if clinical symptoms warrant. 3. Hepatic cysts, unchanged. 4. [facility]. [address] [facility] HCG QUALITATIVE, URINEon HCG ( test) Ql (U) Negative NEGATIVE [facility] HEPATIC FUNCTION PANELon Albumin [Mass/Vol] 4.6 g/dL [facility] ALP [Catalytic activity/Vol] 52 U/L [facility] ALT [Catalytic activity/Vol] 18 U/L [facility] AST [Catalytic activity/Vol] 31 U/L [facility] Bilirubin [Mass/Vol] 0.5 mg/dL [facility] Bilirubin.direct [Mass/Vol] 0.0 mg/dL [facility] Protein [Mass/Vol] 7.7 g/dL [facility] LIPASEon 01-30-2020 Lipase [Catalytic activity/Vol] 33 U/L 23 - 300 U/L [facility] URINALYSIS, MACROon 01-30-20 20 Bilirubin Ql (U) Negative NEGATIVE [facility] Clarity (U) CLEAR CLEAR [facility] Color (U) YELLOW YELLOW [facility] Glucose Test strip (U) [Mass/Vol] Negative NEGATIVE mg/dl [facility] Hemoglobin Ql (U) Negative NEGATIVE [facility] Interpretation and review of laboratory results Abnormal [facility] Ketones (U) [Mass/Vol] Negative NEGATIVE mg/dl [facility] Leukocyte esterase Test strip Ql (U) Negative NEGATIVE [facility] Nitrite Ql (U) Negative [facility]IVE [facility] pH (U) 7.5 [pH] High [facility] Protein Ql (U) Negative NEGATIVE mg/dl [facility] Specific gravity (U) [Rel density] 1.015 [facility] Urobilinogen (U) [Mass/Vol[facility] Vital Signs Date Time Vital Sign Value Performing Clinician Facility 11-16-2023 15:53-0400 Diastolic blood pressure 79 mm[Hg] [employer] Work Phone: [facility] 11-16-2023 15:53-0400 Heart rate 72 /min [employer] Work Phone: [facility] 11-16-2023 15:53-0400 Respiratory rate 18 /min [employer] Work Phone: [facility] 11-16-2023 15:53-0400 SaO2% (BldA) [Mass fraction] 100 % [employer] Work Phone: [facility] 11-16-2023 15:53-0400 Systolic blood pressure 119 mm[Hg] [employer] Work Phone: [facility] 11-16-2023 14:45-0400 Body temperature 97.5 [degF] [employer] Work Phone: [facility] 11-04-2023 14:05-0400 Diastolic blood pressure 78 mm[Hg] [facility] 11-04-2023 14:05-0400 Heart rate 98 /min [facility] 11-04-2023 14:05-0400 Mean blood pressure 96 mm[Hg] [facility] 11-04-2023 14:05-0400 Respiratory rate 14 /min [facility] 11-04-2023 14:05-0400 SaO2% (BldA) [Mass fraction] 100 % [facility] 11-04-2023 14:05-0400 Systolic blood pressure 133 mm[Hg] [facility] 11-04-2023 13:40-0400 Diastolic blood pressure 95 mm[Hg] [facility] 11-04-2023 13:40-0400 Heart rate 100 /min [facility] 11-04-2023 13:40-0400 Mean blood pressure 113 mm[Hg] [facility] 11-04-2023 13:40-0400 Respiratory rate 18 /min [facility] 11-04-2023 13:40-0400 SaO2% (BldA) [Mass fraction] 100 % [facility] 11-04-2023 13:40-0400 Systolic blood pressure 148 mm[Hg] [facility] 11-04-2023 13:10-0400 Diastolic blood pressure 84 mm[Hg] [facility] 11-04-2023 13:10-0400 Heart rate 101 /min [facility] 11-04-2023 13:10-0400 Mean blood pressure 102 mm[Hg] [facility] 11-04-2023 13:10-0400 Respiratory rate 15 /min [facility] 11-04-2023 13:10-0400 SaO2% (BldA) [Mass fraction] 100 % [facility] 11-04-2023 13:10-0400 Systolic blood pressure 139 mm[Hg] [facility] 11-04-2023 10:42-0400 Body temperature 98.06 [degF] [facility] 11-04-2023 10:42-0400 Heart rate 92 /min [facility] 11-04-2023 10:42-0400 Respiratory rate 20 /min [facility] 11-01-2023 09:00-0400 Diastolic blood pressure 81 mm[Hg] Chichi Miller MD Work Phone: [facility] 11-01-2023 09:00-0400 Heart rate 70 /min Chichi Miller MD Work Phone: [facility] 11-01-2023 09:00-0400 Respiratory rate 16 /min Chichi Miller MD Work Phone: [facility] 11-01-2023 09:00-0400 SaO2% (BldA) [Mass fraction] 100 % Chichi Miller MD Work Phone: [facility] 11-01-2023 09:00-0400 Systolic blood pressure 128 mm[Hg] Chichi Miller MD Work Phone: [facility] 11-01-2023 08:27-0400 Body temperature 96.8 [degF] Chichi Miller MD Work Phone: [facility] 11-01-2023 07:51-0400 Body height 167.6 cm Chichi Miller MD Work Phone: [facility] 11-01-2023 07:51-0400 Body mass index (BMI) [Ratio] 29.86 kg/m2 Chichi Miller MD Work Phone: [facility] 11-01-2023 07:51-0400 Body weight 83.92 kg Chichi Miller MD Work Phone: [facility] 10-13-2023 11:23-0400 Body height 167.6 cm Georgina Carrillo MD Work Phone: [facility] 10-13-2023 11:23-0400 Body mass index (BMI) [Ratio] 30.83 kg/m2 Georgina Carrillo MD Work Phone: [facility] 10-13-2023 11:23-0400 Body weight 86.64 kg Georgina Carrillo MD Work Phone: [facility] 10-13-2023 11:23-0400 Diastolic blood pressure 69 mm[Hg] Georgina Carrillo MD Work Phone: [facility] 10-13-2023 11:23-0400 Heart rate 81 /min Georgina Carrillo MD Work Phone: [facility] 10-13-2023 11:23-0400 SaO2% (BldA) [Mass fraction] 100 % Georgina Carrillo MD Work Phone: [facility] 10-13-2023 11:23-0400 Systolic blood pressure 125 mm[Hg] Georgina Carrillo MD Work Phone: [facility] 10-06-2023 15:36-0400 Body height 166.6 cm Pac 4 Work Phone: [facility] 10-06-2023 15:36-0400 Body mass index (BMI) [Ratio] 29.61 kg/m2 Pac 4 Work Phone: [facility] 10-06-2023 15:36-0400 Body temperature 96.69 [degF] [employer] Work Phone: [facility] 10-06-2023 15:36-0400 Body weight 82.2 kg Pacc 4 Work Phone: [facility] 10-06-2023 15:36-0400 Diastolic blood pressure 84 mm[Hg] [employer] Work Phone: [facility] 10-06-2023 15:36-0400 Heart rate 77 /min Pac 4 Work Phone: [facility] 10-06-2023 15:36-0400 Respiratory rate 17 /min Pac 4 Work Phone: [facility] 10-06-2023 15:36-0400 SaO2% (BldA) [Mass fraction] 99 % Pac 4 Work Phone: [facility] 10-06-2023 15:36-0400 Systolic blood pressure 125 mm[Hg] [facility] 4 Work Phone: [facility] 09-08-2023 11:15-0400 Body height 167.6 cm Kasie Avalos MD Work Phone: [facility] 09-08-2023 11:15-0400 Body mass index (BMI) [Ratio] 28.34 kg/m2 Kasie Avalos MD Work Phone: [facility] 09-08-2023 11:15-0400 Body temperature 97.3 [degF] Kasie Avalos MD Work Phone: [facility] 09-08-2023 11:15-0400 Body weight 79.65 kg Kasie vAalos MD Work Phone: [facility] 09-08-2023 11:15-0400 Diastolic blood pressure 82 mm[Hg] Kasie Avalos MD Work Phone: [facility] 09-08-2023 11:15-0400 Heart rate 74 /min Kasie Avalos MD Work Phone: [facility] 09-08-2023 11:15-0400 SaO2% (BldA) [Mass fraction] 100 % Kasie Avalos MD Work Phone: [facility] 09-08-2023 11:15-0400 Systolic blood pressure 118 mm[Hg] Kasie Avalos MD Work Phone: [facility] 08-26-2023 16:30-0400 Diastolic blood pressure 53 mm[Hg] Britt Cross MD Work Phone: [facility] 08-26-2023 16:30-0400 Heart rate 62 /min Britt Cross MD Work Phone: [facility] 08-26-2023 16:30-0400 Respiratory rate 16 /min Britt Cross MD Work Phone: [facility] 08-26-2023 16:30-0400 SaO2% (BldA) [Mass fraction] 98 % Britt Cross MD Work Phone: [facility] 08-26-2023 16:30-0400 Systolic blood pressure 104 mm[Hg] Britt Cross MD Work Phone: [facility] 08-26-2023 15:19-0400 Body height 167.6 cm Britt Cross MD Work Phone: [facility] 08-26-2023 15:19-0400 Body mass index (BMI) [Ratio] 28.25 kg/m2 Britt Cross MD Work Phone: [facility] 08-26-2023 15:19-0400 Body temperature 98.1 [degF] Britt Cross MD Work Phone: [facility] 08-26-2023 15:19-0400 Body weight 79.38 kg Britt Cross MD Work Phone: [facility] 08-21-2023 12:56-0400 Diastolic blood pressure 55 mm[Hg] [employer] Jaquan Cristhian Work Phone: [facility] 08-21-2023 12:56-0400 Heart rate 72 /min [employer] Jaquan Cristhian Work Phone: [facility] 08-21-2023 12:56-0400 Respiratory rate 18 /min [employer] Jaquan Cristhian Work Phone: [facility] 08-21-2023 12:56-0400 SaO2% (BldA) [Mass fraction] 98 % [employer] Jaquan Cristhian Work Phone: [facility] 08-21-2023 12:56-0400 Systolic blood pressure 103 mm[Hg] [employer] TRA[employer]ING [employer] Jaquan Cristhian Work Phone: [facility] 08-21-2023 08:54-0400 Body height 168.91 cm [employer] Jaquan Cristhian Work Phone: [facility] 08-21-2023 08:54-0400 Body weight 79 kg [employer] Jaquan Cristhian Work Phone: [facility] 08-21-2023 08:48-0400 Body temperature 97.9 [degF] [employer] Jaquan Cristhian Work Phone: [facility] 08-14-2023 18:07-0400 Diastolic blood pressure 74 mm[Hg] [employer] Jaquan Cristhian Work Phone: [facility] 08-14-2023 18:07-0400 Heart rate 66 /min [employer] Jaquan Cristhian Work Phone: [facility] 08-14-2023 18:07-0400 Respiratory rate 18 /min [employer] Jaquan Cristhian Work Phone: [facility] 08-14-2023 18:07-0400 SaO2% (BldA) [Mass fraction] 99 % [employer] Jaquan Cristhian Work Phone: [facility] 08-14-2023 18:07-0400 Systolic blood pressure 110 mm[Hg] [employer] TRA[employer]ING AIDE[employer]C Jaquan Cristhian Work Phone: [facility] 08-14-2023 16:17-0400 Body height 167.64 cm [employer] TRA[employer]ING [employer] Jaquan Cristhian Work Phone: [facility] 08-14-2023 16:17-0400 Body temperature 97.5 [degF] [employer] TRA[employer] Jaquan Cristhian Work Phone: [facility] 08-14-2023 16:17-0400 Body weight 78.92 kg [employer] Jaquan Cristhian Work Phone: [facility] 08-09-2023 13:51-0400 Diastolic blood pressure 79 mm[Hg] Vic Ramos MD Work Phone: [facility] 08-09-2023 13:51-0400 Heart rate 76 /min Vic Ramos MD Work Phone: [facility] 08-09-2023 13:51-0400 Systolic blood pressure 113 mm[Hg] Vic Ramos MD Work Phone: [facility] 08-04-2023 08:23-0400 Body mass index (BMI) [Ratio] 29.21 kg/m2 Boogie Murguia MD Work Phone: [facility] 08-04-2023 08:23-0400 Body weight 82.1 kg Boogie Murguia MD Work Phone: [facility] 07-31-2023 13:21-0400 Diastolic blood pressure 55 mm[Hg] [employer] Jaquan Cristhian Work Phone: [facility] 07-31-2023 13:21-0400 Heart rate 64 /min [employer] Jaquan Cristhian Work Phone: [facility] 07-31-2023 13:21-0400 Respiratory rate 18 /min [employer] Jaquan Cristhian Work Phone: [facility] 07-31-2023 13:21-0400 SaO2% (BldA) [Mass fraction] 97 % [employer] Jaquan Cristhian Work Phone: [facility] 07-31-2023 13:21-0400 Systolic blood pressure 104 mm[Hg] [employer] Jaquan Cristhian Work Phone: [facility] 07-31-2023 10:21-0400 Body height 168.91 cm [employer] TRAINING A[employer] Jaquan Cristhian Work Phone: [facility] 07-31-2023 10:21-0400 Body temperature 98.2 [degF] [employer] Jaquan Cristhian Work Phone: [facility] 07-31-2023 10:21-0400 Body weight 79 kg [employer] TRA[employer]ING [employer] Jaquan Cristhian Work Phone: [facility] 07-17-2023 21:45-0400 Body temperature 98.2 [degF] VISUAL TRAINING AIDE-C Jaquan Cristhian Work Phone: [facility] 07-17-2023 21:45-0400 Diastolic blood pressure 73 mm[Hg] VISUAL TRAINING AIDE-C Jaquan Cristhian Work Phone: [facility] 07-17-2023 21:45-0400 Heart rate 66 /min VISUAL TRAINING AIDE-C Jaquan Cristhian Work Phone: [facility] 07-17-2023 21:45-0400 Respiratory rate 16 /min VISUAL TRAINING AIDE-C Jaquan Cristhian Work Phone: [facility] 07-17-2023 21:45-0400 SaO2% (BldA) [Mass fraction] 97 % VISUAL TRAINING AIDE-C Jaquan Cristhian Work Phone: [facility] 07-17-2023 21:45-0400 Systolic blood pressure 108 mm[Hg] VISUAL TRAINING AIDE-C Jaquan Cristhian Work Phone: [facility] 07-17-2023 12:39-0400 Body height 167.64 cm VISUAL TRAINING AIDE-C Jaquan Cristhian Work Phone: [facility] 07-17-2023 08:45-0400 Body weight 79.5 kg VISUAL TRAINING AIDE-C Jaquan Cristhian Work Phone: [facility] 07-17-2023 07:30-0400 Diastolic blood pressure 53 mm[Hg] VISUAL TRAINING AIDE-C Jaquan Cristhian Work Phone: [facility] 07-17-2023 07:30-0400 Heart rate 62 /min VISUAL TRAINING AIDE-C Jaquan Cristhian Work Phone: [facility] 07-17-2023 07:30-0400 Respiratory rate 16 /min VISUAL TRAINING AIDE-C Jaquan Cristhian Work Phone: [facility] 07-17-2023 07:30-0400 SaO2% (BldA) [Mass fraction] 96 % VISUAL TRAINING AIDE-C Jaquan Cristhian Work Phone: [facility] 07-17-2023 07:30-0400 Systolic blood pressure 106 mm[Hg] VISUAL TRAINING AIDE-C Jaquan Cristhian Work Phone: [facility] 07-16-2023 14:44-0400 Body height 167.64 cm VISUAL TRAINING AIDE-C Jaquan Cristhian Work Phone: [facility] 07-16-2023 14:44-0400 Body temperature 97.6 [degF] VISUAL TRAINING AIDE-C Jaquan Cristhian Work Phone: [facility] 07-16-2023 14:44-0400 Body weight 79.95 kg VISUAL TRAINING AIDE-C Jaquan Cristhian Work Phone: [facility] 07-03-2023 07:00-0400 Body temperature 98.6 [degF] David Wodrich DO Work Phone: [facility] 07-03-2023 07:00-0400 Diastolic blood pressure 57 mm[Hg] David Wodrich DO Work Phone: [facility] 07-03-2023 07:00-0400 Heart rate 105 /min David Wodrich DO Work Phone: [facility] 07-03-2023 07:00-0400 Respiratory rate 18 /min David Wodrich DO Work Phone: [facility] 07-03-2023 07:00-0400 SaO2% (BldA) [Mass fraction] 100 % David Wodrich DO Work Phone: [facility] 07-03-2023 07:00-0400 Systolic blood pressure 99 mm[Hg] David Wodrich DO Work Phone: [facility] 06-29-2023 18:16-0400 Body height 167.6 cm David Wodrcatherine DO Work Phone: [facility] 06-29-2023 18:16-0400 Body mass index (BMI) [Ratio] 27.12 kg/m2 David Wodrich DO Work Phone: [facility] 06-29-2023 18:16-0400 Body weight 76.2 kg David Wodrich DO Work Phone: [facility] 06-22-2023 11:14-0400 Body height 167.6 cm Sherry Magaña MD Work Phone: [facility] 06-22-2023 11:14-0400 Body mass index (BMI) [Ratio] 27.12 kg/m2 Sherry Magaña MD Work Phone: [facility] 06-22-2023 11:14-0400 Body weight 76.2 kg Sherry Magaña MD Work Phone: [facility] 06-18-2023 09:35-0400 Body height 167.6 cm Breanna Stern APRN.OPERATIONAL TRAINER Work Phone: [facility] 06-18-2023 09:35-0400 Body mass index (BMI) [Ratio] 27.29 kg/m2 Breanna Stern APRN.OPERATIONAL TRAINER Work Phone: [facility] 06-18-2023 09:35-0400 Body temperature 98.01 [degF] Breanna Stern APRN.OPERATIONAL TRAINER Work Phone: [facility] 06-18-2023 09:35-0400 Body weight 76.66 kg Breanna Stern APRN.OPERATIONAL TRAINER Work Phone: [facility] 06-18-2023 09:35-0400 Diastolic blood pressure 82 mm[Hg] Breanna Stern APRN.OPERATIONAL TRAINER Work Phone: [facility] 06-18-2023 09:35-0400 Heart rate 78 /min Breanna Stern APRN.OPERATIONAL TRAINER Work Phone: [facility] 06-18-2023 09:35-0400 SaO2% (BldA) [Mass fraction] 100 % Breanna Stern [employer].OPERATIONAL TRAINER Work Phone: [facility] 06-18-2023 09:35-0400 Systolic blood pressure 142 mm[Hg] Breanna Stern [employer].OPERATIONAL TRAINER Work Phone: [facility] 05-31-2023 00:53-0400 Diastolic blood pressure 82 mm[Hg] VISUAL TRAINING AIDE-C Jaquan Cristhian Work Phone: [facility] 05-31-2023 00:53-0400 Heart rate 51 /min VISUAL TRAINING AIDE-C Jaquan Cristhian Work Phone: [facility] 05-31-2023 00:53-0400 Respiratory rate 18 /min VISUAL TRAINING AIDE-C Jaquan Cristhian Work Phone: [facility] 05-31-2023 00:53-0400 SaO2% (BldA) [Mass fraction] 91 % VISUAL TRAINING AIDE-C Jaquan Cristhian Work Phone: [facility] 05-31-2023 00:53-0400 Systolic blood pressure 142 mm[Hg] VISUAL TRAINING AIDE-C Jaquan Cristhian Work Phone: [facility] 05-30-2023 15:25-0400 Body height 167.64 cm VISUAL TRAINING AIDE-C Jaquan Cristhian Work Phone: [facility] 05-30-2023 15:25-0400 Body temperature 97.7 [degF] VISUAL TRAINING AIDE-C Jaquan Cristhian Work Phone: [facility] 05-30-2023 15:25-0400 Body weight 76.65 kg VISUAL TRAINING AIDE-C Jaquan Cristhian Work Phone: [facility] 05-17-2023 16:03-0400 Diastolic blood pressure 82 mm[Hg] [facility] 05-17-2023 16:03-0400 Heart rate 72 /min [facility] 05-17-2023 16:03-0400 Mean blood pressure 95 mm[Hg] [facility] 05-17-2023 16:03-0400 Respiratory rate 17 /min [facility] 05-17-2023 16:03-0400 SaO2% (BldA) [Mass fraction] 100 % [facility] 05-17-2023 16:03-0400 Systolic blood pressure 120 mm[Hg] [facility] 05-17-2023 15:30-0400 Diastolic blood pressure 86 mm[Hg] [facility] 05-17-2023 15:30-0400 Heart rate 71 /min [facility] 05-17-2023 15:30-0400 Mean blood pressure 103 mm[Hg] [facility] 05-17-2023 15:30-0400 Respiratory rate 16 /min [facility] 05-17-2023 15:30-0400 SaO2% (BldA) [Mass fraction] 100 % [facility] 05-17-2023 15:30-0400 Systolic blood pressure 136 mm[Hg] [facility] 05-17-2023 15:00-0400 Diastolic blood pressure 78 mm[Hg] [facility] 05-17-2023 15:00-0400 Heart rate 70 /min [facility] 05-17-2023 15:00-0400 Mean blood pressure 97 mm[Hg] [facility] 05-17-2023 15:00-0400 Respiratory rate 15 /min [facility] 05-17-2023 14:16-0400 Body temperature 97.7 [degF] [facility] 05-17-2023 14:16-0400 Heart rate 74 /min [facility] 03-29-2024 13:06-0400 Hourly Rounding Moncho Paster [facility] 05-14-2023 13:06-0400 Promise to Return Moncho Paster [facility] 05-14-2023 12:06-0400 Hourly Rounding Moncho Paster [facility] 05-14-2023 12:06-0400 Promise to Return Moncho Paster [facility] 05-14-2023 11:32-0400 Hourly Rounding Moncho Paster [facility] 05-14-2023 11:32-0400 Promise to Return Moncho Paster [facility] 05-14-2023 10:08-0400 Heart rate 57 /min Moncho Paster [facility] 05-14-2023 10:08-0400 SaO2% (BldA) [Mass fraction] 100 % Moncho Paster [facility] 05-14-2023 10:08-0400 Diastolic blood pressure 80 mm[Hg] Moncho Paster [facility] 05-14-2023 10:08-0400 Mean blood pressure 93 mm[Hg] Moncho Paster [facility] 05-14-2023 10:08-0400 Systolic blood pressure 119 mm[Hg] Moncho Paster [facility] 05-14-2023 10:08-0400 Body temperature 97.34 [degF] Moncho Paster [facility] 05-14-2023 07:32-0400 Heart rate 57 /min Moncho Paster [facility] 05-14-2023 07:32-0400 SaO2% (BldA) [Mass fraction] 100 % Moncho Paster [facility] 05-14-2023 07:32-0400 Diastolic blood pressure 66 mm[Hg] Moncho Paster [facility] 05-14-2023 07:32-0400 Mean blood pressure 77 mm[Hg] Moncho Paster [facility] 05-14-2023 07:32-0400 Systolic blood pressure 100 mm[Hg] Moncho Paster [facility] 05-14-2023 07:31-0400 Body temperature 97.34 [degF] Moncho Paster [facility] 05-14-2023 05:00-0400 Blood Pressure Location Moncho Paster [facility] 05-14-2023 05:00-0400 Diastolic blood pressure 77 mm[Hg] Moncho Paster [facility] 05-14-2023 05:00-0400 Mean blood pressure 90 mm[Hg] Moncho Paster [facility] 05-14-2023 05:00-0400 Systolic blood pressure 116 mm[Hg] Moncho Paster [facility] 05-13-2023 23:38-0400 Heart rate 53 /min Moncho Paster [facility] 05-13-2023 23:38-0400 SaO2% (BldA) [Mass fraction] 100 % Moncho Paster [facility] 05-13-2023 23:38-0400 Respiratory rate 16 /min Moncho Paster [facility] 05-13-2023 23:37-0400 Mean blood pressure 92 mm[Hg] Moncho Paster [facility] 05-13-2023 23:00-0400 Blood Pressure Location Moncho Paster [facility] 05-13-2023 23:00-0400 Body temperature 97.34 [degF] Moncho Paster [facility] 05-13-2023 19:33-0400 Body temperature 97.52 [degF] Moncho Paster [facility] 05-13-2023 16:00-0400 Body temperature 98.06 [degF] Moncho Paster [facility] 05-13-2023 11:00-0400 Body temperature 98.24 [degF] Moncho Paster [facility] 05-12-2023 16:17-0400 Blood Pressure Location Moncho Paster [facility] 05-12-2023 16:00-0400 Respiratory rate 20 /min Moncho Paster [facility] 05-12-2023 15:55-0400 Mean blood pressure 86 mm[Hg] Moncho Paster [facility] 05-12-2023 15:55-0400 Respiratory rate 14 /min Moncho Paster [facility] 05-12-2023 15:50-0400 Mean blood pressure 87 mm[Hg] Moncho Paster [facility] 05-12-2023 15:50-0400 Respiratory rate 18 /min Moncho Paster [facility] 05-12-2023 15:36-0400 Body temperature 97.88 [degF] Moncho Paster [facility] 05-12-2023 15:30-0400 Respiratory rate 12 /min Moncho Paster [facility] 05-12-2023 15:25-0400 Respiratory rate 12 /min Moncho Paster [facility] 05-12-2023 13:19-0400 Heart rate 61 /min Moncho Paster [facility] 05-12-2023 09:32-0400 Heart rate 77 /min Moncho Paster [facility] 05-11-2023 16:43-0400 Diastolic blood pressure 67 mm[Hg] Mateusz Jose [facility] 05-11-2023 16:43-0400 Heart rate 75 /min Mateusz Jose [facility] 05-11-2023 16:43-0400 Mean blood pressure 83 mm[Hg] Mateusz Jose [facility] 05-11-2023 16:43-0400 Respiratory rate 18 /min Mtaeusz Jose [facility] 05-11-2023 16:43-0400 SaO2% (BldA) [Mass fraction] 100 % Mateusz Jose [facility] 05-11-2023 16:43-0400 Systolic blood pressure 115 mm[Hg] Mateusz Jose [facility] 05-11-2023 15:00-0400 Diastolic blood pressure 79 mm[Hg] Mateusz Jose [facility] 05-11-2023 15:00-0400 Heart rate 65 /min Mateusz Jose [facility] 05-11-2023 15:00-0400 Mean blood pressure 92 mm[Hg] Mateusz Jose [facility] 05-11-2023 15:00-0400 Systolic blood pressure 118 mm[Hg] Mateusz Jose [facility] 05-11-2023 14:30-0400 Heart rate 69 /min Mateusz Jose [facility] 05-11-2023 14:30-0400 Respiratory rate 18 /min Mateusz Jose [facility] 05-11-2023 14:30-0400 SaO2% (BldA) [Mass fraction] 100 % Mateusz Jose [facility] 05-11-2023 12:00-0400 Body temperature 97.7 [degF] Mateusz Jose [facility] 05-11-2023 12:00-0400 Diastolic blood pressure 83 mm[Hg] Mateusz Jose [facility] 05-11-2023 12:00-0400 Heart rate 73 /min Mateusz Jose [facility] 05-11-2023 12:00-0400 Systolic blood pressure 147 mm[Hg] Mateusz Jose [facility] 05-09-2023 16:20-0400 Diastolic blood pressure 67 mm[Hg] Mateusz Jose [facility] 05-09-2023 16:20-0400 Heart rate 75 /min Mateusz Jose [facility] 05-09-2023 16:20-0400 Mean blood pressure 82 mm[Hg] Mateusz Jose [facility] 05-09-2023 16:20-0400 Respiratory rate 16 /min Mateusz Jose [facility] 05-09-2023 16:20-0400 SaO2% (BldA) [Mass fraction] 97 % Mateusz Jose [facility] 05-09-2023 16:20-0400 Systolic blood pressure 112 mm[Hg] Mateusz Jose [facility] 05-09-2023 15:40-0400 Diastolic blood pressure 69 mm[Hg] Mateusz Jose [facility] 05-09-2023 15:40-0400 Heart rate 69 /min Mateusz Jose [facility] 05-09-2023 15:40-0400 Mean blood pressure 84 mm[Hg] Mateusz Jose [facility] 05-09-2023 15:40-0400 Respiratory rate 18 /min Mateusz Jose [facility] 05-09-2023 15:40-0400 SaO2% (BldA) [Mass fraction] 100 % Mateusz Jose [facility] 05-09-2023 15:40-0400 Systolic blood pressure 113 mm[Hg] Mateusz Jose [facility] 05-09-2023 14:00-0400 Diastolic blood pressure 80 mm[Hg] Mateusz Jose [facility] 05-09-2023 14:00-0400 Heart rate 78 /min Mateusz Jose [facility] 05-09-2023 14:00-0400 Mean blood pressure 96 mm[Hg] Mateusz Jose [facility] 05-09-2023 14:00-0400 Respiratory rate 19 /min Mateusz Jose [facility] 05-09-2023 14:00-0400 Systolic blood pressure 129 mm[Hg] Mateusz Jose [facility] 05-09-2023 11:47-0400 Body temperature 97.7 [degF] Mateusz Jose [facility] 05-09-2023 11:47-0400 Heart rate 107 /min Mateusz Jose [facility] 05-06-2023 21:11-0400 Diastolic blood pressure 61 mm[Hg] Mateusz Jose [facility] 05-06-2023 21:11-0400 Heart rate 55 /min Mateusz Jose [facility] 05-06-2023 21:11-0400 Mean blood pressure 74 mm[Hg] Mateusz Jose [facility] 05-06-2023 21:11-0400 Respiratory rate 16 /min Mateusz Jose [facility] 05-06-2023 21:11-0400 SaO2% (BldA) [Mass fraction] 100 % Mateusz Jose [facility] 05-06-2023 21:11-0400 Systolic blood pressure 100 mm[Hg] Mateusz Jose [facility] 05-06-2023 20:20-0400 Diastolic blood pressure 73 mm[Hg] Mateusz Jose [facility] 05-06-2023 20:20-0400 Heart rate 53 /min Mateusz Jose [facility] 05-06-2023 20:20-0400 Mean blood pressure 89 mm[Hg] Mateusz Jose [facility] 05-06-2023 20:20-0400 Respiratory rate 14 /min Mateusz Jose [facility] 05-06-2023 20:20-0400 SaO2% (BldA) [Mass fraction] 100 % Mateusz Jose [facility] 05-06-2023 20:20-0400 Systolic blood pressure 122 mm[Hg] Mateusz Jose [facility] 05-06-2023 19:30-0400 Diastolic blood pressure 87 mm[Hg] Mateusz Jose [facility] 05-06-2023 19:30-0400 Heart rate 72 /min Mateusz Garcia [facility] 05-06-2023 19:30-0400 Mean blood pressure 105 mm[Hg] Mateusz Garcia [facility] 05-06-2023 19:30-0400 Respiratory rate 16 /min Mateusz Garcia [facility] 05-06-2023 19:30-0400 SaO2% (BldA) [Mass fraction] 100 % Mateusz Garcia [facility] 05-06-2023 19:30-0400 Systolic blood pressure 141 mm[Hg] Mateusz Garcia [facility] 05-06-2023 15:45-0400 Body temperature 98.78 [degF] Mateusz Garcia [facility] 05-06-2023 15:45-0400 Heart rate 66 /min Mateusz Garcia [facility] 05-06-2023 15:45-0400 Respiratory rate 18 /min Mateusz Garcia [facility] 04-28-2023 09:49-0400 Body height 167.6 cm Kasie Avalos MD Work Phone: [facility] 04-28-2023 09:49-0400 Body temperature 96.6 [degF] Kasie Avalos MD Work Phone: [facility] 04-28-2023 09:49-0400 Body weight 79.38 kg Kasie Avalos MD Work Phone: [facility] 04-28-2023 09:49-0400 Diastolic blood pressure 75 mm[Hg] Kasie Avalos MD Work Phone: [facility] 04-28-2023 09:49-0400 Heart rate 80 /min Kasie Avalos MD Work Phone: [facility] 04-28-2023 09:49-0400 SaO2% (BldA) [Mass fraction] 100 % Kasie Avalos MD Work Phone: [facility] 04-28-2023 09:49-0400 Systolic blood pressure 106 mm[Hg] Kasie Avalos MD Work Phone: [facility] 04-06-2023 14:00-0500 Diastolic blood pressure 59 mm[Hg] VISUAL TRAINING AIDE-C Jaquan Cristhian Work Phone: [facility] 04-06-2023 14:00-0500 Heart rate 59 /min VISUAL TRAINING AIDE-C Jaquan Cristhian Work Phone: [facility] 04-06-2023 14:00-0500 Respiratory rate 16 /min VISUAL TRAINING AIDE-C Jaquan Cristhian Work Phone: [facility] 04-06-2023 14:00-0500 SaO2% (BldA) [Mass fraction] 98 % VISUAL TRAINING AIDE-C Jaquan Cristhian Work Phone: [facility] 04-06-2023 14:00-0500 Systolic blood pressure 113 mm[Hg] VISUAL TRAINING AIDE-C Jaquan Cristhian Work Phone: [facility] 04-06-2023 09:47-0500 Body height 167.64 cm VISUAL TRAINING AIDE-C Jaquan Cristhian Work Phone: [facility] 04-06-2023 09:47-0500 Body temperature 96.7 [degF] VISUAL TRAINING AIDE-C Jaquan Cristhian Work Phone: [facility] 04-06-2023 09:47-0500 Body weight 81.1 kg VISUAL TRAINING AIDE-C Jaquan Cristhian Work Phone: [facility] 04-02-2023 17:00-0500 Diastolic blood pressure 63 mm[Hg] [facility] Jose Ramon [facility] 04-02-2023 17:00-0500 Heart rate 75 /min [facility] 04-02-2023 17:00-0500 Mean blood pressure 80 mm[Hg] [facility] 04-02-2023 17:00-0500 SaO2% (BldA) [Mass fraction] 99 % [facility] 04-02-2023 17:00-0500 Systolic blood pressure 113 mm[Hg] [facility] 04-02-2023 16:00-0500 Diastolic blood pressure 71 mm[Hg] [facility] 04-02-2023 16:00-0500 Heart rate 71 /min [facility] 04-02-2023 16:00-0500 Mean blood pressure 88 mm[Hg] [facility] 04-02-2023 16:00-0500 Respiratory rate 14 /min [facility] 04-02-2023 16:00-0500 SaO2% (BldA) [Mass fraction] 100 % [facility] 04-02-2023 16:00-0500 Systolic blood pressure 123 mm[Hg] [facility] 04-02-2023 15:00-0500 Diastolic blood pressure 55 mm[Hg] [facility] 04-02-2023 15:00-0500 Heart rate 76 /min [facility] 04-02-2023 15:00-0500 Mean blood pressure 73 mm[Hg] [facility] 04-02-2023 15:00-0500 Respiratory rate 17 /min [facility] 04-02-2023 15:00-0500 Systolic blood pressure 109 mm[Hg] [facility] 04-02-2023 10:54-0500 Body temperature 98.6 [degF] [facility] 04-02-2023 10:54-0500 Heart rate 73 /min [facility] 04-02-2023 10:54-0500 Respiratory rate 16 /min [facility] 03-20-2023 08:41-0500 Body temperature 97.5 [degF] Melisa Barker MD Work Phone: 4(443)119-176[address] [place] [address] 03-20-2023 08:41-0500 Diastolic blood pressure 74 mm[Hg] Melisa Barker MD Work Phone: 4(757)697-625579 [place] [address] 03-20-2023 08:41-0500 Heart rate 62 /min Melisa Barker MD Work Phone: 3(744)[phone] [place] [address] 03-20-2023 08:41-0500 Respiratory rate 18 /min Melisa Barker MD Work Phone: 3(079)645-170179 [place] [address] 03-20-2023 08:41-0500 SaO2% (BldA) [Mass fraction] 98 % Melisa Barker MD Work Phone: 7(800)514-840179 [place] [address] 03-20-2023 08:41-0500 Systolic blood pressure 131 mm[Hg] Melisa Barker MD Work Phone: 5(604)[phone] [place] [address] 03-16-2023 13:47-0500 Body height 167.6 cm Melisa Barker MD Work Phone: 4(894)[phone] [place] [address] 03-16-2023 13:47-0500 Body mass index (BMI) [Ratio] 32.99 kg/m2 Melisa Barker MD Work Phone: 3(995)905-081479 [place] [address] 03-16-2023 13:47-0500 Body weight 92.7 kg Melisa Barker MD Work Phone: 6(893)[phone] [place] [address] 03-16-2023 12:00-0500 Diastolic blood pressure 70 mm[Hg] Earnest Jett [facility] 03-16-2023 12:00-0500 Heart rate 69 /min Earnest Jett [facility] 03-16-2023 12:00-0500 Mean blood pressure 84 mm[Hg] Earnest Johnie [facility] 03-16-2023 12:00-0500 Systolic blood pressure 113 mm[Hg] Earnest Blancoe [facility] 03-16-2023 11:30-0500 Diastolic blood pressure 86 mm[Hg] Earnest Blancoe [facility] 03-16-2023 11:30-0500 Heart rate 61 /min Earnest Blancoe [facility] 03-16-2023 11:30-0500 Mean blood pressure 102 mm[Hg] Earnest Blancoe [facility] 03-16-2023 11:30-0500 Respiratory rate 16 /min Earnest Blancoe [facility] 03-16-2023 11:30-0500 Systolic blood pressure 133 mm[Hg] Earnest Blancoe [facility] 03-16-2023 11:07-0500 Diastolic blood pressure 83 mm[Hg] Earnest Blancoe [facility] 03-16-2023 11:07-0500 Heart rate 63 /min Earnest Blancoe [facility] 03-16-2023 11:07-0500 Mean blood pressure 94 mm[Hg] Earnest Blancoe [facility] 03-16-2023 11:07-0500 SaO2% (BldA) [Mass fraction] 100 % Earnest Johnie [facility] 03-16-2023 11:07-0500 Systolic blood pressure 116 mm[Hg] Earnest Johnie [facility] 03-16-2023 10:21-0500 Body temperature 97.52 [degF] Earnest Johnie [facility] 03-16-2023 10:21-0500 Heart rate 70 /min Earnest Johnie [facility] 03-16-2023 10:21-0500 SaO2% (BldA) [Mass fraction] 100 % Earnest Johnie [facility] 03-15-2023 18:00-0500 Diastolic blood pressure 75 mm[Hg] Earnest Johnie [facility] 03-15-2023 18:00-0500 Heart rate 68 /min Earnest Johnie [facility] 03-15-2023 18:00-0500 Mean blood pressure 94 mm[Hg] Earnest Johnie [facility] 03-15-2023 18:00-0500 Respiratory rate 16 /min Earnest Johnie [facility] 03-15-2023 18:00-0500 SaO2% (BldA) [Mass fraction] 98 % Earnest Johnie [facility] 03-15-2023 18:00-0500 Systolic blood pressure 131 mm[Hg] Earnest Johnie [facility] 03-15-2023 17:19-0500 Diastolic blood pressure 66 mm[Hg] Earnest Johnie [facility] 03-15-2023 17:19-0500 Heart rate 56 /min Earnest Johnie [facility] 03-15-2023 17:19-0500 Mean blood pressure 79 mm[Hg] Earnest Johnie [facility] 03-15-2023 17:19-0500 Respiratory rate 18 /min Earnest Johnie [facility] 03-15-2023 17:19-0500 SaO2% (BldA) [Mass fraction] 95 % Earnest Johnie [facility] 03-15-2023 17:19-0500 Systolic blood pressure 104 mm[Hg] Earnest Jett [facility] 03-15-2023 16:23-0500 Diastolic blood pressure 72 mm[Hg] Earnest Jett [facility] 03-15-2023 16:23-0500 Heart rate 58 /min Earnest Blancoe [facility] 03-15-2023 16:23-0500 Mean blood pressure 90 mm[Hg] Earnest Jett [facility] 03-15-2023 16:23-0500 Respiratory rate 20 /min Earnest Jett [facility] 03-15-2023 16:23-0500 SaO2% (BldA) [Mass fraction] 99 % Earnest Jett [facility] 03-15-2023 16:23-0500 Systolic blood pressure 126 mm[Hg] Earnest Jett [facility] 03-15-2023 11:41-0500 Body temperature 97.88 [degF] Earnest Jett [facility] 03-15-2023 11:41-0500 Heart rate 71 /min Earnest Jett [facility] 03-15-2023 11:41-0500 Respiratory rate 26 /min Earnest Jett [facility] 03-10-2023 11:50-0500 Body temperature 97.9 [degF] Sherry Magaña MD Work Phone: [facility] 03-10-2023 11:50-0500 Diastolic blood pressure 85 mm[Hg] Sherry Magaña MD Work Phone: [facility] 03-10-2023 11:50-0500 Heart rate 73 /min Sherry Magaña MD Work Phone: [facility] 03-10-2023 11:50-0500 Respiratory rate 18 /min Sherry Magaña MD Work Phone: [facility] 03-10-2023 11:50-0500 SaO2% (BldA) [Mass fraction] 100 % Sherry Magaña MD Work Phone: [facility] 03-10-2023 11:50-0500 Systolic blood pressure 137 mm[Hg] Sherry Magaña MD Work Phone: [facility] 03-10-2023 08:32-0500 Body mass index (BMI) [Ratio] 29.69 kg/m2 Sherry Magaña MD Work Phone: [facility] 03-10-2023 08:32-0500 Body weight 83.4 kg Sherry Magaña MD Work Phone: [facility] 03-05-2023 06:42-0500 Body height 167.6 cm Sherry Magaña MD Work Phone: [facility] 02-13-2023 17:30-0500 Diastolic blood pressure 73 mm[Hg] VISUAL TRAINING AIDE-C Jaquan Cristhian Work Phone: [facility] 02-13-2023 17:30-0500 Heart rate 61 /min VISUAL TRAINING AIDE-C Jaquan Cristhian Work Phone: [facility] 02-13-2023 17:30-0500 Respiratory rate 18 /min VISUAL TRAINING AIDE-C Jaquan Cristhian Work Phone: [facility] 02-13-2023 17:30-0500 SaO2% (BldA) [Mass fraction] 100 % VISUAL TRAINING AIDE-C Jaquan Cristhian Work Phone: [facility] 02-13-2023 17:30-0500 Systolic blood pressure 121 mm[Hg] VISUAL TRAINING AIDE-C Jaquan Cristhian Work Phone: [facility] 02-13-2023 10:43-0500 Body height 167.64 cm VISUAL TRAINING AIDE-C Jaquan Cristhian Work Phone: [facility] 02-13-2023 10:43-0500 Body weight 83 kg VISUAL TRAINING AIDE-C Jaquan Cristhian Work Phone: [facility] 02-13-2023 10:42-0500 Body temperature 98.2 [degF] VISUAL TRAINING AIDE-C Jaquan Cristhian Work Phone: [facility] 12-31-2022 15:49-0500 Diastolic blood pressure 82 mm[Hg] Mateusz Jose [facility] 12-31-2022 15:49-0500 Heart rate 81 /min Mateusz Jose [facility] 12-31-2022 15:49-0500 Mean blood pressure 96 mm[Hg] Mateusz Jose [facility] 12-31-2022 15:49-0500 Respiratory rate 16 /min Mateusz Jose [facility] 12-31-2022 15:49-0500 SaO2% (BldA) [Mass fraction] 100 % Mateusz Jose [facility] 12-31-2022 15:49-0500 Systolic blood pressure 124 mm[Hg] Mateusz Jose [facility] 12-31-2022 15:40-0500 Hourly Rounding Mateusz Jose [facility] 12-31-2022 15:40-0500 Promise to Return Mateusz Jose [facility] 12-31-2022 15:00-0500 Diastolic blood pressure 78 mm[Hg] Mateusz Jose [facility] 12-31-2022 15:00-0500 Heart rate 76 /min Mateusz Jose [facility] 12-31-2022 15:00-0500 Mean blood pressure 91 mm[Hg] Mateusz Jose [facility] 12-31-2022 15:00-0500 Systolic blood pressure 117 mm[Hg] Mateusz Jose [facility] 12-31-2022 14:40-0500 Hourly Rounding Mateusz Jose [facility] 12-31-2022 14:40-0500 Promise to Return Mateusz Jose [facility] 12-31-2022 14:00-0500 Diastolic blood pressure 83 mm[Hg] Mateusz Jose [facility] 12-31-2022 14:00-0500 Heart rate 71 /min Mateusz Jose [facility] 12-31-2022 14:00-0500 Mean blood pressure 99 mm[Hg] Mateusz Jose [facility] 12-31-2022 14:00-0500 Systolic blood pressure 132 mm[Hg] Mateusz Jose [facility] 12-31-2022 13:40-0500 Hourly Rounding Mateusz Jose [facility] 12-31-2022 13:40-0500 Promise to Return Mateusz Ojse [facility] 12-31-2022 12:42-0500 Body temperature 97.7 [degF] Mateusz Jose [facility] 12-31-2022 12:42-0500 Heart rate 88 /min Mateusz Jose [facility] 12-04-2022 09:54-0400 Body height 166 cm Agustin Zamorano MD Work Phone: [facility] 12-04-2022 09:54-0400 Body weight 83.78 kg Agustin Zamorano MD Work Phone: [facility] 12-04-2022 09:54-0400 Diastolic blood pressure 62 mm[Hg] Agustin Zamorano MD Work Phone: [facility] 12-04-2022 09:54-0400 Heart rate 91 /min Agustin Zamorano MD Work Phone: [facility] 12-04-2022 09:54-0400 Systolic blood pressure 112 mm[Hg] Agustin Zamorano MD Work Phone: [facility] 11-04-2022 12:00-0400 Body temperature 97.7 [degF] Rheu Jeanne Work Phone: [facility] 11-04-2022 12:00-0400 Diastolic blood pressure 65 mm[Hg] Rheu Jeanne Work Phone: [facility] 11-04-2022 12:00-0400 Heart rate 97 /min Rheu Jeanne Work Phone: [facility] 11-04-2022 09:19-0400 Body height 167.6 cm Deacon Kat MD Work Phone: [facility] 11-04-2022 09:19-0400 Body temperature 97.81 [degF] Deacon Kat MD Work Phone: [facility] 11-04-2022 09:19-0400 Body weight 83.46 kg Deacon Kat MD Work Phone: [facility] 11-04-2022 09:19-0400 Diastolic blood pressure 81 mm[Hg] Deacon Kat MD Work Phone: [facility] 11-04-2022 09:19-0400 Heart rate 82 /min Deacon Kat MD Work Phone: [facility] 11-04-2022 09:19-0400 Respiratory rate 18 /min Deacon Kat MD Work Phone: [facility] 11-04-2022 09:19-0400 SaO2% (BldA) [Mass fraction] 98 % Deacon Kat MD Work Phone: [facility] 11-04-2022 09:19-0400 Systolic blood pressure 125 mm[Hg] Deaocn Kat MD Work Phone: [facility] 11-02-2022 13:52-0400 Diastolic blood pressure 82 mm[Hg] Dimitri Walker MD Work Phone: [facility] 11-02-2022 13:52-0400 Heart rate 82 /min Dimitri Walker MD Work Phone: [facility] 11-02-2022 13:52-0400 Respiratory rate 18 /min Dimitri Walker MD Work Phone: [facility] 11-02-2022 13:52-0400 Systolic blood pressure 128 mm[Hg] Dimitri Walker MD Work Phone: [facility] 11-02-2022 10:35-0400 Body mass index (BMI) [Ratio] 30.18 kg/m2 [facility] 11-02-2022 10:35-0400 Body weight 84.82 kg Dimitri Walker MD Work Phone: [facility] Comment on above: stand up scale triage room 11-02-2022 10:34-0400 Body temperature 98.29 [degF] Dimitri Walker MD Work Phone: [employer] [facility] 11-02-2022 10:34-0400 SaO2% (BldA) [Mass fraction] 98 % Dimitri Walker MD Work Phone: [employer] [facility] 10-31-2022 08:30-0400 Diastolic blood pressure 67 mm[Hg] Jalyn Suresh DO Work Phone: [facility] 10-31-2022 08:30-0400 Systolic blood pressure 120 mm[Hg] Jalyn Albaradobal DO Work Phone: [facility] [employer] 10-31-2022 06:32-0400 Body temperature 97.7 [degF] Jalyn Suresh DO Work Phone: [facility] [employer] 10-31-2022 06:32-0400 Heart rate 92 /min Jalyn Suresh DO Work Phone: [facility] [employer] 10-31-2022 06:32-0400 Respiratory rate 19 /min Jalyn Suresh DO Work Phone: [facility] 10-31-2022 06:32-0400 SaO2% (BldA) [Mass fraction] 100 % Jalyn Suresh DO Work Phone[facility] [employer] 10-20-2022 11:52-0400 Diastolic blood pressure 86 mm[Hg] Earnest Jett [facility] 10-20-2022 11:52-0400 Heart rate 75 /min Earnest Blancoe [facility] 10-20-2022 11:52-0400 Respiratory rate 15 /min Earnest Blancoe [facility] 10-20-2022 11:52-0400 SaO2% (BldA) [Mass fraction] 99 % Earnest Blancoe [facility] 10-20-2022 11:52-0400 Systolic blood pressure 141 mm[Hg] Earnest Johnie [facility] 10-20-2022 10:31-0400 Diastolic blood pressure 70 mm[Hg] Earnest Johnie [facility] 10-20-2022 10:31-0400 Heart rate 70 /min Earnest Blancoe [facility] 10-20-2022 10:31-0400 Mean blood pressure 92 mm[Hg] Earnest Johnie [facility] 10-20-2022 10:31-0400 Respiratory rate 16 /min Earnest Blancoe [facility] 10-20-2022 10:31-0400 SaO2% (BldA) [Mass fraction] 100 % Earnest Blancoe [facility] 10-20-2022 10:31-0400 Systolic blood pressure 137 mm[Hg] Earnest Johnie [facility] 10-20-2022 09:17-0400 Diastolic blood pressure 63 mm[Hg] Earnest Blancoe [facility] 10-20-2022 09:17-0400 Heart rate 77 /min Earnest Blancoe [facility] 10-20-2022 09:17-0400 Mean blood pressure 85 mm[Hg] Earnest Blancoe [facility] 10-20-2022 09:17-0400 Respiratory rate 18 /min Earnest Blancoe [facility] 10-20-2022 09:17-0400 SaO2% (BldA) [Mass fraction] 100 % Earnest Blancoe [facility] 10-20-2022 09:17-0400 Systolic blood pressure 128 mm[Hg] Earnest Blancoe [facility] 10-20-2022 08:17-0400 Body temperature 97.88 [degF] Earnest Johnie [facility] 10-19-2022 13:30-0400 Diastolic blood pressure 82 mm[Hg] Earnest Johnie [facility] 10-19-2022 13:30-0400 Heart rate 67 /min Earnest Blancoe [facility] 10-19-2022 13:30-0400 Mean blood pressure 100 mm[Hg] Earnest Johnie [facility] 10-19-2022 13:30-0400 Respiratory rate 20 /min Earnest Johnie [facility] 10-19-2022 13:30-0400 SaO2% (BldA) [Mass fraction] 100 % Earnest Johnie [facility] 10-19-2022 13:30-0400 Systolic blood pressure 136 mm[Hg] Earnest Johnie [facility] 10-19-2022 13:00-0400 Heart rate 61 /min Earnest Johnie [facility] 10-19-2022 13:00-0400 Respiratory rate 18 /min Earnest Johnie [facility] 10-19-2022 13:00-0400 Systolic blood pressure 127 mm[Hg] Earnest Johnie [facility] 10-19-2022 12:30-0400 Diastolic blood pressure 80 mm[Hg] Earnest Johnie [facility] 10-19-2022 12:30-0400 Heart rate 60 /min Earnest Johnie [facility] 10-19-2022 12:30-0400 Mean blood pressure 97 mm[Hg] Earnest Johnie [facility] 10-19-2022 12:30-0400 Respiratory rate 20 /min Earnest Johnie [facility] 10-19-2022 12:30-0400 SaO2% (BldA) [Mass fraction] 100 % Earnest Johnie [facility] 10-19-2022 12:30-0400 Systolic blood pressure 132 mm[Hg] Earnest Johnie [facility] 10-19-2022 08:34-0400 Body temperature 96.62 [degF] Earnest Jett [facility] 10-19-2022 08:34-0400 Heart rate 73 /min Earnest Jett [facility] 09-28-2022 07:54-0400 Body height 167.[address] Work Phone: [facility] 09-28-2022 07:54-0400 Body weight 83.[address] Work Phone: [facility] 09-18-2022 15:12-0400 Body height 167.6 cm Breanna Stern APRN.OPERATIONAL TRAINER Work Phone: [facility] 09-18-2022 15:12-0400 Body temperature 97.5 [degF] Breanna Stern APRN.OPERATIONAL TRAINER Work Phone: [facility] 09-18-2022 15:12-0400 Body weight 83.46 kg Breanna Stern APRN.OPERATIONAL TRAINER Work Phone: [facility] 09-18-2022 15:12-0400 Diastolic blood pressure 88 mm[Hg] Breanna Stern APRN.OPERATIONAL TRAINER Work Phone: [facility] 09-18-2022 15:12-0400 Heart rate 65 /min Breanna Stern APRN.OPERATIONAL TRAINER Work Phone: [facility] 09-18-2022 15:12-0400 SaO2% (BldA) [Mass fraction] 99 % Breanna Stern [employer].OPERATIONAL TRAINER Work Phone: [facility] 09-18-2022 15:12-0400 Systolic blood pressure 118 mm[Hg] Breanna Stern APRN.OPERATIONAL TRAINER Work Phone: [facility] 07-29-2022 08:40-0400 Blood Pressure Location Rajni Nasim [facility] 07-29-2022 08:40-0400 Diastolic blood pressure 86 mm[Hg] Rajni Lue [facility] 07-29-2022 08:40-0400 Heart rate 71 /min Rajni Lue [facility] 07-29-2022 08:40-0400 Systolic blood pressure 127 mm[Hg] Rajni Lue [facility] 07-22-2022 10:08-0400 Body height 167.6 cm Kasie Avalos MD Work Phone: [facility] 07-22-2022 10:08-0400 Body temperature 98.1 [degF] Kasie Avalos MD Work Phone: [facility] 07-22-2022 10:08-0400 Body weight 79.92 kg Kasie Avalos MD Work Phone: [facility] 07-22-2022 10:08-0400 Diastolic blood pressure 89 mm[Hg] Kasie Avalos MD Work Phone: [facility] 07-22-2022 10:08-0400 Heart rate 72 /min Kasie Avalos MD Work Phone: [facility] 07-22-2022 10:08-0400 SaO2% (BldA) [Mass fraction] 100 % Kasie Avalos MD Work Phone: [facility] 07-22-2022 10:08-0400 Systolic blood pressure 136 mm[Hg] Kasie Avalos MD Work Phone: [facility] 06-12-2022 10:00-0400 Body height 167.6 cm Aliyah Washburn PA-C Work Phone: [facility] 06-12-2022 10:00-0400 Body temperature 97.5 [degF] Aliyah Washburn PA-C Work Phone: [facility] 06-12-2022 10:00-0400 Body weight 84.37 kg Aliyah Lentzti PA-C Work Phone: [facility] 06-12-2022 10:00-0400 Diastolic blood pressure 78 mm[Hg] Aliyah Yinganti PA-C Work Phone: [facility] 06-12-2022 10:00-0400 Heart rate 68 /min Aliyah Yinganti PA-C Work Phone: [facility] 06-12-2022 10:00-0400 Systolic blood pressure 123 mm[Hg] Aliyah Yinganti PA-C Work Phone: [facility] 06-10-2022 17:43-0400 Diastolic blood pressure 74 mm[Hg] [facility] 06-10-2022 17:43-0400 Heart rate 65 /min [facility] 06-10-2022 17:43-0400 Mean blood pressure 90 mm[Hg] [facility] 06-10-2022 17:43-0400 Respiratory rate 16 /min [facility] 06-10-2022 17:43-0400 SaO2% (BldA) [Mass fraction] 100 % [facility] 06-10-2022 17:43-0400 Systolic blood pressure 122 mm[Hg] [facility] 06-10-2022 17:00-0400 Diastolic blood pressure 77 mm[Hg] [facility] 06-10-2022 17:00-0400 Heart rate 66 /min [facility] 06-10-2022 17:00-0400 Mean blood pressure 94 mm[Hg] [facility] 06-10-2022 17:00-0400 Systolic blood pressure 129 mm[Hg] [facility] 06-10-2022 16:00-0400 Heart rate 83 /min [facility] 06-10-2022 16:00-0400 Mean blood pressure 93 mm[Hg] [facility] 06-10-2022 16:00-0400 Systolic blood pressure 130 mm[Hg] [facility] 06-10-2022 12:32-0400 Body temperature 97.7 [degF] [facility] 06-10-2022 12:32-0400 Heart rate 88 /min [facility] 06-10-2022 12:32-0400 Respiratory rate 18 /min [facility] 03-06-2022 15:30-0500 Diastolic blood pressure 70 mm[Hg] Deacon Kat MD Work Phone: [facility] 03-06-2022 15:30-0500 Heart rate 67 /min Deacon Kat MD Work Phone: [facility] 03-06-2022 15:30-0500 Respiratory rate 16 /min Deacon Kat MD Work Phone: [facility] 03-06-2022 15:30-0500 SaO2% (BldA) [Mass fraction] 100 % Deacon Kat MD Work Phone: [facility] 03-06-2022 15:30-0500 Systolic blood pressure 105 mm[Hg] Deacon Kat MD Work Phone: [facility] 03-06-2022 13:00-0500 Body temperature 96.8 [degF] Deacon Kat MD Work Phone: [facility] 03-05-2022 09:33-0500 Body weight 89.81 kg Breanna Stern APRN.OPERATIONAL TRAINER Work Phone: [facility] 02-04-2022 09:23-0500 Body height 167.[address] Work Phone: [facility] 02-04-2022 09:23-0500 Body weight 93.44 kg Nahed Tamez DADA Work Phone: [facility] 02-03-2022 14:55-0500 Body height 167.6 cm Breanna Stern [employer].OPERATIONAL TRAINER Work Phone: [facility] 02-03-2022 14:55-0500 Body temperature 97 [degF] Breanna Stern [employer].OPERATIONAL TRAINER Work Phone: [facility] 02-03-2022 14:55-0500 Body weight 93.44 kg Breanna Stern [employer].OPERATIONAL TRAINER Work Phone: [facility] 02-03-2022 14:55-0500 Diastolic blood pressure 81 mm[Hg] Breanna Stern [employer].OPERATIONAL TRAINER Work Phone: [facility] 02-03-2022 14:55-0500 Heart rate 76 /min Breanna Stern [employer].OPERATIONAL TRAINER Work Phone: [facility] 02-03-2022 14:55-0500 SaO2% (BldA) [Mass fraction] 99 % Breanna Stern [employer].OPERATIONAL TRAINER Work Phone: [facility] 02-03-2022 14:55-0500 Systolic blood pressure 128 mm[Hg] Breanna Stern [employer].OPERATIONAL TRAINER Work Phone: [facility] 01-28-2022 08:41-0500 Body height 167.6 cm Pacc 2 Work Phone: [facility] 01-28-2022 08:41-0500 Body temperature 97.9 [degF] Pacc 2 Work Phone: [facility] 01-28-2022 08:41-0500 Body weight 94.8 kg Pacc 2 Work Phone: [facility] 01-28-2022 08:41-0500 Diastolic blood pressure 85 mm[Hg] Pacc 2 Work Phone: [facility] 01-28-2022 08:41-0500 Heart rate 65 /min Pacc 2 Work Phone: [facility] 01-28-2022 08:41-0500 Respiratory rate 16 /min Pacc 2 Work Phone: [facility] 01-28-2022 08:41-0500 SaO2% (BldA) [Mass fraction] 100 % Pacc 2 Work Phone: [facility] 01-28-2022 08:41-0500 Systolic blood pressure 131 mm[Hg] Pacc 2 Work Phone: [facility] 01-02-2022 11:06-0500 Body weight 92.99 kg Sabina Vacco [employer].OPERATIONAL TRAINER Work Phone: [facility] 12-25-2021 10:10-0500 Diastolic blood pressure 76 mm[Hg] Britt Cross MD Work Phone: [facility] 12-25-2021 10:10-0500 Heart rate 74 /min Britt Cross MD Work Phone: [facility] 12-25-2021 10:10-0500 Respiratory rate 18 /min Britt Cross MD Work Phone: [facility] 12-25-2021 10:10-0500 SaO2% (BldA) [Mass fraction] 100 % Britt Cross MD Work Phone: [facility] 12-25-2021 10:10-0500 Systolic blood pressure 140 mm[Hg] Britt Cross MD Work Phone: [facility] 12-25-2021 08:26-0500 Body height 167.6 cm Britt Cross MD Work Phone: [facility] 12-25-2021 08:26-0500 Body temperature 98.1 [degF] Britt Cross MD Work Phone: [facility] 12-25-2021 08:26-0500 Body weight 92.99 kg Britt Cross MD Work Phone: [facility] 10-09-2021 15:44-0400 Body height 167.6 cm Sabina Vacco [employer].OPERATIONAL TRAINER Work Phone: [facility] 10-09-2021 15:44-0400 Body weight 89.81 kg Sabina Joy SLIM.OPERATIONAL TRAINER Work Phone: [facility] 08-30-2021 03:47-0400 Diastolic blood pressure 70 mm[Hg] Pablo Atwood DO Work Phone: [employer] 08-30-2021 03:47-0400 Systolic blood pressure 130 mm[Hg] Pablo Atwood DO Work Phone: [employer] 08-30-2021 03:46-0400 Body temperature 100.4 [degF] Pablo Atwood DO Work Phone: [employer] 08-30-2021 03:46-0400 Heart rate 107 /min Pablo Atwood DO Work Phone: [employer] 08-30-2021 03:46-0400 Respiratory rate 19 /min Pablo Atwood DO Work Phone: [employer] 08-30-2021 03:46-0400 SaO2% (BldA) [Mass fraction] 96 % Pablo Atwood DO Work Phone: [employer] 08-28-2021 07:54-0400 Body height 167.[address] Work Phone: [facility] 08-28-2021 07:54-0400 Body weight 90.[address] Work Phone: [facility] 08-17-2021 12:00-0400 Body height 167.64 cm Shanna June Other [employer] Other 08-17-2021 12:00-0400 Body mass index (BMI) [Ratio] 33.08 kg/m2 Shanna June Other [employer] Other 08-17-2021 12:00-0400 Body temperature 98.1 [degF] Shanna June Other [employer] Other 08-17-2021 12:00-0400 Body weight 92.99 kg Shanna June Other [employer] Other 08-17-2021 12:00-0400 Diastolic blood pressure 80 mm[Hg] Shanna June Other [employer] Other 08-17-2021 12:00-0400 Respiratory rate 18 /min Shanna June Other [employer] Other 08-17-2021 12:00-0400 SaO2% (BldA) [Mass fraction] 99 % Shanna June Other [employer] Other 08-17-2021 12:00-0400 Systolic blood pressure 137 mm[Hg] Shanna June Other [employer] Other 07-27-2021 14:25-0400 Respiratory rate 18 /min Angela Do MD Work Phone: [employer] 07-27-2021 14:03-0400 SaO2% (BldA) [Mass fraction] 98 % Angela Do MD Work Phone: [employer] 07-27-2021 13:27-0400 Diastolic blood pressure 44 mm[Hg] Angela Do MD Work Phone: [employer] 07-27-2021 13:27-0400 Systolic blood pressure 110 mm[Hg] Angela Do MD Work Phone: [employer] 07-27-2021 10:18-0400 Body mass index (BMI) [Ratio] 31.47 kg/m2 Angela Do MD Work Phone: [employer] 07-27-2021 10:18-0400 Body temperature 98.6 [degF] Angela Do MD Work Phone: [facility] [employer] 07-27-2021 10:18-0400 Body weight 88.45 kg Angela Do MD Work Phone: [facility] [employer] 07-27-2021 10:18-0400 Heart rate 71 /min Angela Do MD Work Phone: [facility] [employer] 03-31-2021 11:00-0500 Body height 167.64 cm Shanna Slade Other [employer] Other 03-31-2021 11:00-0500 Body mass index (BMI) [Ratio] 33.08 kg/m2 Shanna Slade Other [employer] Other 03-31-2021 11:00-0500 Body temperature 98 [degF] Shanna Slade Other [employer] Other 03-31-2021 11:00-0500 Body weight 92.99 kg Shanan Slade Other [employer] Other 03-31-2021 11:00-0500 Diastolic blood pressure 91 mm[Hg] Shanna June Other [employer] Other 03-31-2021 11:00-0500 Respiratory rate 18 /min Shanna June Other [employer] Other 03-31-2021 11:00-0500 SaO2% (BldA) [Mass fraction] 100 % Shanna June Other [facility] [employer] Other 02-14-2022 11:00-0500 Systolic blood pressure 142 mm[Hg] Shanna June Other [facility] Other 01-28-2021 12:00-0500 Body height 167.64 cm Shanna June Other [facility] Other 01-28-2021 12:00-0500 Body mass index (BMI) [Ratio] 33.08 kg/m2 Shanna June Other [facility] [employer] Other 01-28-2021 12:00-0500 Body temperature 98 [degF] Shanna June Other [employer] Other 01-28-2021 12:00-0500 Body weight 92.99 kg Shanna June Other [facility] Other 01-28-2021 12:00-0500 Diastolic blood pressure 92 mm[Hg] Shanna June Other [employer] Other 01-28-2021 12:00-0500 Respiratory rate 18 /min Shanna June Other [employer] Other 01-28-2021 12:00-0500 SaO2% (BldA) [Mass fraction] 100 % Shanna June Other [employer] Other 01-28-2021 12:00-0500 Systolic blood pressure 143 mm[Hg] Shanna June Other [employer] Other 12-17-2020 17:30-0400 Body height 167.64 cm Shanna Granadosault Other [employer] Other 12-17-2020 17:30-0400 Body mass index (BMI) [Ratio] 32.92 kg/m2 Shanna June Other [employer] Other 12-17-2020 17:30-0400 Body temperature 98.2 [degF] Shanna June Other [employer] Other 12-17-2020 17:30-0400 Body weight 92.53 kg Shanna June Other [employer] Other 12-17-2020 17:30-0400 Diastolic blood pressure 71 mm[Hg] Shanna June Other [employer] Other 12-17-2020 17:30-0400 Respiratory rate 18 /min Shanna June Other [employer] Other 12-17-2020 17:30-0400 SaO2% (BldA) [Mass fraction] 100 % Shanna June Other [employer] Other 12-17-2020 17:30-0400 Systolic blood pressure 117 mm[Hg] Shanna June Other [employer] Other 12-14-2020 15:07-0400 Body height 167.6 cm Shanna June [employer] - VISUAL TRAINING AIDE Work Phone: [employer] Phone: 12-14-2020 15:07-0400 Body mass index (BMI) [Ratio] 32.77 kg/m2 Shanna June [employer] - VISUAL TRAINING AIDE Work Phone: [employer] Work Phone: 12-14-2020 15:07-0400 Body temperature 98.8 [degF] Shanna June [employer] - VISUAL TRAINING AIDE Work Phone: [employer] Work Phone: 12-14-2020 15:07-0400 Body weight 92.08 kg Shanna June [employer] - VISUAL TRAINING AIDE Work Phone: [employer] Work Phone: 12-14-2020 15:07-0400 Diastolic blood pressure 90 mm[Hg] Shanna June [employer] - VISUAL TRAINING AIDE Work Phone: [employer] Work Phone: 12-14-2020 15:07-0400 Heart rate 85 /min Shanna June [employer] - VISUAL TRAINING AIDE Work Phone: [employer] Work Phone: 12-14-2020 15:07-0400 Respiratory rate 20 /min Shanna June [employer] - VISUAL TRAINING AIDE Work Phone: [employer] Work Phone: 12-14-2020 15:07-0400 SaO2% (BldA) [Mass fraction] 100 % Shanna June PAPER SORTER AND COUNTER - VISUAL TRAINING AIDE Work Phone: [employer] Work Phone: 12-14-2020 15:07-0400 Systolic blood pressure 139 mm[Hg] Shanna June PAPER SORTER AND COUNTER - VISUAL TRAINING AIDE Work Phone: [employer] Work Phone: 07-02-2020 13:16-0400 Diastolic blood pressure 56 mm[Hg] Vaughn eCja MD Work Phone: [employer] 07-02-2020 13:16-0400 Heart rate 71 /min Vaughn Ceja MD Work Phone: [employer] 07-02-2020 13:16-0400 Respiratory rate 18 /min Vaughn Ceja MD Work Phone: [employer] 07-02-2020 13:16-0400 SaO2% (BldA) [Mass fraction] 99 % Vaughn Ceja MD Work Phone: [facility] 07-02-2020 13:16-0400 Systolic blood pressure 165 mm[Hg] Vaughn Ceja MD Work Phone: [facility] 07-02-2020 12:44-0400 Body temperature 97.39 [degF] Vaughn Ceja MD Work Phone: [phone] [place] [address] 07-02-2020 12:35-0400 Body height 167.6 cm Vaughn Ceja MD Work Phone: [phone] [place] [address] 07-02-2020 12:35-0400 Body mass index (BMI) [Ratio] 37.12 kg/m2 Vaughn Ceja MD Work Phone: [facility] 07-02-2020 12:35-0400 Body weight 104.33 kg Vaughn Ceja MD Work Phone: [facility] 01-30-2020 17:34-0500 BP Diastolic 76 mm[Hg] [facility] 01-30-2020 17:34-0500 BP Systolic 139 mm[Hg] [facility] 01-30-2020 17:34-0500 Pulse (Heart Rate) 87 /min [facility] 01-30-2020 17:34-0500 Pulse Oximetry 100 % [facility] 01-30-2020 17:34-0500 Respiratory Rate 18 /min [facility] 01-30-2020 13:22-0500 Height 167.6 cm [facility] 01-30-2020 13:16-0500 Body Temperature 97.81 [degF] [facility] Encounters Encounter Date Encounter Type Care Provider Facility Start: 11-16-2023 End: 11-16-2023 Telephone encounter [facility] Provider Gastroenterology Comment on above: Consult Start: 11-16-2023 End: 11-17-2023 ambulatory Chair Yarelis Gutierrez Work Phone: Hematology/Oncology Comment on above: Impaired intestinal absorption (Primary Dx); Iron deficiency anemia, unspecified iron deficiency anemia type Start: 11-15-2023 End: 11-15-2023 [facility] Pablo Lebron PSYD Work Phone: Neurology Comment on above: ARSALAN (generalized anx iety disorder) (Primary Dx); Panic disorder without agoraphobia; Mild recurrent major depression (HCC); Situational stress Start: 11-12-2023 End: 11-12-2023 Patient Msg Georgina Carrillo MD Work Phone: Internal Medicine [place] [id number] Comment on above: Orders for IV Iron i nfusions Start: 11-10-2023 End: 11-10-2023 Admission to same day surgery center Deacon Kat MD Work Phone: General Surgery Comment on above: Jejunostomy present (HCC) (Primary Dx) Start: 11-10-2023 End: 11-10-2023 ambulatory DEACON KAT Facility:[facility] Start: 11-10-2023 End: 11-10-2023 Telemedicine consultation with patient Deacon Kat MD Work Phone: General Surgery Start: 11-06-2023 End: 11-08-2023 ambulatory Boogie Murguia MD Work Phone: Pain Management Comment on above: Pain Pump Start: 11-06-2023 End: 11-08-2023 Patient encounter procedure Ronaldo Kim MD Work Phone: Endocrinology Comment on above: Appointment and Symp toms Start: 11-04-2023 End: 11-04-2023 Telephone encounter Braxton Prado MD Work Phone: Vascular Surg Dept Comment on above: 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 TINO Elroy KELVIN Not Available Start: 10-25-2023 End: 10-25-2023 ambulatory MARCOS MORENO Not Available Start: 10-20-2023 End: 10-20-2023 ambulatory THOMAS Sandra CALIX Facility:[facility] Start: 10-20-2023 End: 10-20-2023 Follow-up encounter Breanna Stern APRN.OPERATIONAL TRAINER Work Phone: General Surgery Comment on above: S/P gastrointestinal surgery, follow-up exam (Primary Dx) Start: 10-20-2023 End: 10-20-2023 Telemedicine consultation with patient Breanna Stern OPERATIONAL TRAINER Work Phone: General Surgery Start: 10-15-2023 End: 10-15-2023 ambulatory DANYELL IBRAHIM Facility:[facility] Start: 10-13-2023 End: 10-13-2023 Patient [...] Gastroenterology Start: 10-11-2023 End: 10-12-2023 Telephone encounter May Arayan MD Work Phone: [facility] Comment on above: Consult Start: 10-10-2023 End: 10-12-2023 ambulatory RAYNA BILLNIGSLEY Facility:[facility] Start: 10-08-2023 End: 10-08-2023 ambulatory Kasie Avalos MD Work Phone: Gastroenterology Comment on above: Linzess Start: 10-08-2023 End: 10-08-2023 Telephone encounter Deacon Kat MD Work Phone: General Surgery Start: 10-07-2023 End: 10-07-2023 ambulatory DEACON KAT Facility:[facility] Start: 10-06-2023 End: 10-06-2023 Admission to [place] [phone] Work Phone: Pre Anesthesia Start: 10-06-2023 End: 10-06-2023 Admission to same day surgery [place] [phone] Work Phone: Pre Anesthesia Comment on above: [...] Start: 10-06-2023 End: 10-06-[address] [facility] Work Phone: [facility] Work Phone: Start: 10-06-2023 End: 10-06-2023 ambulatory DEACON KAT Facility:[facility] Start: 10-06-2023 Encounter for other preprocedural examination JAQUAN MORROW [facility] Start: 10-04-2023 End: 10-15-2023 Admission to same day surgery center Deacon Kat MD Work Phone: General Surgery Comment on above: Disability Start: 10-04-2023 End: 10-15-2023 ambulatory Deacon Kat MD Work Phone: General Surgery Start: 10-01-2023 End: 10-01-2023 ambulatory TINO MONAHAN Not Available Start: 09-28-2023 Refill Kasie Avalos MD Work Phone: Gastroenterology Comment on above: Med Change Request Start: 09-28-2023 End: 09-28-2023 [facility] Pablo Lebron [facility] Work Phone: Neurology Comment on above: ARSALAN (generalized anx iety disorder) (Primary Dx); Panic disorder without agoraphobia; Moderate recurrent major depression (HCC); Situational stress Start: 09-27-2023 End: 09-27-2023 ambulatory THOMAS CALIX Facility:[facility] Start: 09-22-2023 End: 09-22-2023 Emergency department patient visit THOMAS CALIX Facility:[facility] Start: 09-20-2023 End: 09-20-2023 ambulatory DEACON KAT Facility:[facility] Start: 09-20-2023 End: 09-20-2023 Telemedicine consultation with patient Deacon Kat MD Work Phone: General Surgery Start: 09-20-2023 End: 09-20-2023 Admission to [facility] surgery [facility] Deacon Kat MD Work Phone: General Surgery Comment on above: History of gastric b ypass (Primary Dx); Left upper quadrant abdominal pain Refill Request Start: 09-18-2023 End: 09-18-2023 Emergency department patient visit THOMAS CALIX Facility:[facility] Start: 09-17-2023 End: 09-17-2023 Emergency department patient visit SERENA STALEY Facility:[facility] Start: 09-12-2023 End: 09-12-2023 Emergency department patient visit CORIE CRAFT M.D. Facility:[facility] Start: 09-11-2023 End: 09-11-2023 Emergency department patient visit THOMAS CALIX Facility:[facility] Start: 09-09-2023 Admission to same da y surgery center Deacon Kat MD Work Phone: General Surgery Comment on above: 10/20/2023 (Diagnostic Laparoscopy) Start: 09-09-2023 ambulatory Deacon long MD Work Phone: General Surgery Start: 09-09-2023 Patient encounter status Deacon Kat MD Work Phone: [facility] Start: 09-09-2023 End: 10-12-2023 Telephone encounter Deacon Kat MD Work Phone: General Surgery Comment on above: Schedule Surgery; Ca re Coordinator - Other Start: 09-08-2023 End: 09-08-2023 ambulatory KASIE AVALOS Facility:[facility] Start: 09-08-2023 End: 09-08-2023 Patient encounter procedure Kasie Avalos MD Work Phone: Gastroenterology Comment on above: Multiple gastric ulc ers (Primary Dx); LUQ pain; Gastroesophageal reflux disease with esophagitis without hemorrhage; Constipation, unspecified constipation type Start: 09-02-2023 Orders Only Kasie Avalos MD Work Phone: Gastroenterology Start: 09-01-2023 End: 09-01-2023 ambulatory TINO MONAHAN Not Available Start: 08-30-2023 End: 08-31-2023 ambulatory [facility] Facility:[facility] Start: 08-30-2023 End: 08-31-2023 Nursing evaluation of patient and report Nurse [facility] Work Phone: Gastroenterology Comment on above: Gastroesophageal ref lux disease, unspecified whether esophagitis present (Primary Dx) Start: 08-26-2023 End: 08-26-2023 Nursing evaluation of patient and report Nurse [facility] Work Phone: Gastroenterology Comment on above: Gastroesophageal ref lux disease, unspecified whether esophagitis present Start: 08-26-2023 End: 08-26-2023 ambulatory [facility] Facility:[facility] Start: 08-26-2023 End: 08-26-2023 Subsequent hospital visit [...] 08-21-2023 End: 08-21-2023 Emergency department patient visit VISUAL TRAINING AIDE-Elroy Castillo Cristhian Work Phone: [facility] Work Phone: Start: 08-18-2023 Telephone encounter Deacon shahid MD Work Phone: General Surgery Comment on above: Patient Question; Ca re Coordinator - Other Start: 08-14-2023 End: 08-14-2023 Emergency department patient visit VISUAL TRAINING AIDE-Elroy Jaquan Morrow Work Phone: [facility] Work Phone: Start: 08-12-2023 Telephone encounter Radha Arzate Gastroenterology Comment on above: Education Of Patient /family; Reminder Call (08/26/23 appt confirmed) Start: 08-09-2023 End: 08-09-2023 ambulatory VIC RAMOS Facility:[facility] Start: 08-09-2023 End: 08-09-2023 Patient encounter procedure Vic Ramos MD Work Phone: Pain Management Comment on above: Neuralgia and neurit is (Primary Dx); Median arcuate ligament syndrome (HCC) Start: 08-07-2023 End: 08-08-2023 Evaluation and management of inpatient SEN GREENWOODRONALD Facility:[facility] Start: 08-05-2023 ambulatory Boogie Garcia Work Phone: Pain Management Comment on above: Ketamine nasal spray Medication Renewal Start: 08-04-2023 Telephone encounter Boogie Tompkins ud, MD Work Phone: Pain Management Comment on above: Medication Problem Start: 08-04-2023 End: 08-06-2023 Evaluation and management of inpatient THOMAS CALIX Facility:[facility] Start: 08-04-2023 End: 08-04-2023 ambulatory Rajni Rouse [facility] Start: 08-04-2023 End: 08-04-2023 Patient encounter procedure Boogie Murguia MD Work Phone: Pain Management Comment on above: Chronic abdominal pa in (Primary Dx); Gastroesophageal reflux disease without esophagitis; Neuralgia and neuritis; Median arcuate ligament syndrome (HCC); S/P gastric bypass Start: 07-31-2023 End: 07-31-2023 Emergency department patient visit VISUAL TRAINING AIDE-Elroy Morrow Work Phone: [facility] Work Phone: Start: 07-30-2023 End: 07-31-2023 Emergency department patient visit THOMAS CALIX Facility:[facility] Start: 07-28-2023 End: 07-28-2023 ambulatory TINO MONAHAN Not Available Start: 07-19-2023 Orders Only Deacon long MD Work Phone: General Surgery Comment on above: Chronic nausea (Prim reji Dx); History of laparoscopic partial gastrectomy; History of sphincterotomy of sphincter of Oddi; Median arcuate ligament syndrome (HCC) Start: 07-17-2023 End: 07-20-2023 Evaluation and management of inpatient JAQUAN MORROW Facility:[facility] Start: 07-17-2023 End: 07-17-2023 Evaluation and management of inpatient VISUAL TRAINING AIDE-C Jaquan Morrow Work Phone: [facility] Work Phone: Start: 07-15-2023 End: 07-15-2023 ambulatory JAQUAN MORROW Facility:[facility] Start: 07-13-2023 Telephone encounter Natalie Jameson LPN Gastroenterology Comment on above: Appointment Start: 07-13-2023 ambulatory PA-C OLGA Dykes acility:[facility] [place] Start: 07-09-2023 End: 07-09-2023 [facility] Pablo Lebron PSYD Work Phone: Neurology Comment on above: ARSALAN (generalized anx iety disorder) (Primary Dx); Panic disorder without agoraphobia; Moderate recurrent major depression (HCC) Start: 07-06-2023 End: 07-06-2023 Emergency department patient visit JAQUAN MORROW Facility:[facility] Start: 07-06-2023 End: 07-06-2023 ambulatory Francisco J Steve MD Work Phone: Urology Start: 07-06-2023 End: 07-06-2023 Patient encounter procedure Francisco J Steve MD Work Phone: Urology Comment on above: Urinary frequency (P rimary Dx); Urgency of urination Start: 06-29-2023 End: 07-05-2023 [facility] Start: 06-29-2023 End: 06-29-2023 Subsequent hospital visit by physician Sheridan Mederos [facility] Start: 06-29-2023 End: 07-03-2023 Evaluation and management of inpatient David Valadez DO Work Phone: [facility] Comment on above: Epigastric pain (Loretta alla Dx); Median arcuate ligament syndrome (CMS-HCC); Nausea and vomiting, unspecified vomiting type; Other specified hyperalimentation; Generalized abdominal pain Start: 06-29-2023 End: 06-29-2023 ambulatory MARCOS MORENO Not Available Start: 06-22-2023 End: 06-22-2023 Office outpatient visit 10 minutes Sherry Magaña MD Work Phone: [facility] Comment on above: Median arcuate ligam ent syndrome (CMS-HCC) (Primary Dx) Start: 06-22-2023 End: 06-22-2023 ambulatory SHERRY MAGAÑA [facility] Start: 06-18-2023 End: 06-18-2023 Emergency department patient visit JAQUAN MORROW Facility:[facility] Start: 06-18-2023 End: 06-18-2023 ambulatory DEACON KAT Facility:[facility] Start: 06-18-2023 End: 06-18-2023 Patient encounter procedure Breanna Stern PAPER SORTER AND COUNTER.OPERATIONAL TRAINER Work Phone: General Surgery Comment on above: Sudden onset of sharon re abdominal pain (Primary Dx); Nausea and vomiting, unspecified vomiting type; PEG (percutaneous endoscopic gastrostomy) status ([facility]) Start: 06-17-2023 Telephone encounter May Ramey APRN.OPERATIONAL TRAINER Work Phone: Pain Management Comment on above: Appointment Start: 06-17-2023 End: 06-30-2023 ambulatory STOCK GRADER Jaquan L Cristhian Facility:[id number] Start: 06-15-2023 Telephone encounter Deacon shahid MD Work Phone: General Surgery Comment on above: Patient Update; Umm ent Question Start: 06-14-2023 Telephone encounter Stephanie Sumner DO Work Phone: [facility] Provider Adult Start: 06-14-2023 End: 06-14-2023 ambulatory STOCK GRADER Jaquan L Cristhian [facility] Start: 06-10-2023 End: 06-15-2023 ambulatory STOCK GRADER Jaquan L Cristhian Facility:CD:[id number] Start: 06-09-2023 End: 06-09-2023 [facility] Pablo Lebron [facility] Work Phone: Neurology Comment on above: ARSALAN (generalized anx iety disorder) (Primary Dx); Panic disorder without agoraphobia; Moderate recurrent major depression (HCC) Start: 06-06-2023 End: 06-09-2023 Evaluation and management of inpatient CHETNA GROVER Facility:[facility] Start: 06-03-2023 End: 06-03-2023 ambulatory JAQUAN SHANNON CRISTHIAN Facility:[facility] Start: 06-02-2023 End: 06-02-2023 ambulatory STOCK GRADER Jaquan L Cristhian [facility] Start: 06-01-2023 End: 06-01-2023 ambulatory Vic Ramos MD Work Phone: Pain Management Comment on above: Neuralgia and neurit is (Primary Dx); Gastroesophageal reflux disease without esophagitis; Median arcuate ligament syndrome (HCC); S/P gastric bypass Start: 06-01-2023 End: 06-01-2023 Telemedicine consultation with patient Vic Ramos MD Work Phone: JAC[facility]ELY[facility] WYNNE Start: 05-31-2023 End: 06-09-2023 ambulatory STOCK GRADER Jaquan L Cristhian Facility:[id number] Start: 05-30-2023 End: 05-31-2023 Emergency department patient visit VISUAL TRAINING AIDE-C Jaquan Morrow Work Phone: [facility] Work Phone: Start: 05-30-2023 Telephone encounter Deacon shahid MD Work Phone: General Surgery Start: 05-28-2023 End: 05-28-2023 Refill Kasie Avalos MD Work Phone: Gastroenterology Comment on above: Refill Request Medication Problem Start: 05-25-2023 End: 05-28-2023 Evaluation and management of inpatient DEACON KAT Facility:[facility] Start: 05-24-2023 Telephone encounter Deacon shahid MD Work Phone: General Surgery Comment on above: Patient Education; C are Coordinator - Other Start: 05-24-2023 End: 05-26-2023 ambulatory STOCK GRADER Jaquan Cristhian Facility:[id number] Start: 05-20-2023 End: 05-20-2023 Emergency department patient visit SYLVAIN Mercedes NICKERSON Facility:[facility] Start: 05-19-2023 End: 05-19-2023 ambulatory STOCK GRADER Jaquan L Cristhian Facility:[facility] Afsaneh suarez Start: 05-18-2023 Telephone encounter Deacon shahid MD Work Phone: General Surgery Comment on above: Received Outside Med ical Records Start: 05-18-2023 End: 05-22-2023 Evaluation and management of inpatient DEACON KAT Facility:[facility] Start: 05-17-2023 End: 05-17-2023 ambulatory Deacon Kat MD Work Phone: General Surgery Comment on above: Nausea and vomiting, unspecified vomiting type (Primary Dx) Start: 05-17-2023 End: 05-17-2023 Telemedicine consultation with patient Deacon Kat MD Work Phone: [facility] Start: 05-17-2023 End: 05-17-2023 Emergency department patient visit Ashutosh Albright [facility] Start: 05-17-2023 End: 05-19-2023 ambulatory STOCK GRADER Jaquan L Cristhian Facility::[id number] Start: 05-12-2023 End: 05-14-2023 ambulatory Webb Talalyson Holleymicaela Facility:[facility] Start: 05-12-2023 End: 05-14-2023 Observation Moncho Trejo [facility] Start: 05-11-2023 End: 05-11-2023 Emergency department patient visit Mateusz Garcia [facility] Start: 05-10-2023 Telephone encounter Deacon shahid MD Work Phone: General Surgery Comment on above: Patient Question Start: 05-10-2023 End: 05-10-2023 ambulatory STOCK GRADER Jaquan L Cristhian Facility:[facility] Afsaneh erick Start: 05-09-2023 End: 05-09-2023 Emergency department patient visit Mateusz Garcia [facility] Start: 05-07-2023 Telephone encounter Santa Hart RN Ambulatory Surgery Comment on above: Appointment (Cancel EGD) Start: 05-06-2023 End: 05-06-2023 Emergency department patient visit Mateusz Garcia [facility] Start: 04-30-2023 End: 04-30-2023 ambulatory STOCK GRADER Jaquan Morrow Facility:[facility] Afsaneh suarez Start: 04-28-2023 End: 04-28-2023 ambulatory JAQUAN MORROW Facility:[facility] Start: 04-28-2023 End: 04-28-2023 Patient encounter procedure Kasie Avalos MD Work Phone: Gastroenterology Comment on above: Gastroesophageal ref lux disease, unspecified whether esophagitis present (Primary Dx); Constipation, unspecified constipation type Start: 04-20-2023 End: 04-20-2023 Office outpatient visit 10 minutes Sherry Magaña MD Work Phone: [facility] Comment on above: Median arcuate ligam ent syndrome (CMS/HCC) (Primary Dx) Start: 04-20-2023 End: 04-20-2023 ambulatory [facility] Start: 04-07-2023 End: 04-07-2023 Postop follow up visit related to original px Sherry Magaña MD Work Phone: [facility] Comment on above: Median arcuate ligam ent syndrome (CMS/HCC) (Primary Dx) Start: 04-07-2023 End: 04-07-2023 ambulatory [facility] Start: 04-07-2023 End: 04-07-2023 Admission to same day surgery center Deacon Kat MD Work Phone: Endocrinology BMI Comment on above: Bariatric surgery [facility] (Primary Dx); Dietary zinc deficiency; Vitamin D deficiency Start: 04-07-2023 End: 04-07-2023 ambulatory DEACON KAT Facility:[facility] Start: 04-07-2023 End: 04-07-2023 Telemedicine consultation with patient Deacon Kat MD Work Phone: [facility] Start: 04-06-2023 End: 04-06-2023 Emergency department patient visit VISUAL TRAINING AIDE-C Jaquan Morrow Work Phone: [facility] Work Phone: Start: 04-02-2023 End: 04-02-2023 Emergency department patient visit Ashutosh Albright [facility] Start: 03-24-2023 End: 03-24-2023 ambulatory STOCK GRADER Jaquan Morrow Facility:[facility] Start: 03-16-2023 End: 03-20-2023 Evaluation and management of inpatient Melisa Barker MD Work Phone: [facility] Comment on above: Abdominal pain (Prim reji Dx); Nausea and vomiting, unspecified vomiting type; History of gastric bypass; Median arcuate ligament syndrome (CMS/HCC) Start: 03-16-2023 End: 03-16-2023 Emergency department patient visit Earnest Jett [facility] Start: 03-15-2023 End: 03-15-2023 Emergency department patient visit Earnest Jett [facility] Start: 03-05-2023 End: 03-10-2023 Evaluation and management of inpatient Sherry Magaña MD Work Phone: [facility] Comment on above: Median arcuate ligam ent syndrome (CMS/HCC) (Primary Dx) Start: 03-02-2023 End: 03-03-2023 ambulatory NO ASSIGNED PCP GENERIC PROVIDER [facility] Start: 03-02-2023 End: 03-02-2023 ambulatory NO ASSIGNED PCP GENERIC PROVIDER [facility] Start: 03-02-2023 End: 03-02-2023 Encounter for other preprocedural examination NO ASSIGNED PCP GENERIC PROVIDER [facility] Start: 02-13-2023 End: 02-13-2023 Emergency department patient visit PAO Morrow Work Phone: [facility] Work Phone: Start: 02-12-2023 End: 02-12-2023 Emergency department patient visit NO ASSIGNED PCP GENERIC PROVIDER [facility] Start: 02-10-2023 End: 02-10-2023 ambulatory JAQUAN L CRISTHIAN Facility:[place] Start: 02-03-2023 End: 02-03-2023 ambulatory STOCK GRADER Jaquan L Cristhian [facility] Start: 01-15-2023 Telephone encounter Deacon shahid MD Work Phone: Endocrinology BMI Comment on above: Patient Question; Pa tient Update Start: 01-14-2023 End: 01-14-2023 ambulatory Vic Ramos MD Work Phone: Pain Management Comment on above: Waitlist Start: 01-13-2023 End: 01-13-2023 Emergency department patient visit NO ASSIGNED PCP GENERIC PROVIDER [facility] Start: 01-11-2023 Orders Only Vic Conner am, MD Work Phone: Pain Management Comment on above: Chronic pain syndrom e (Primary Dx) Pain Management Proc edure missed call Start: 01-08-2023 End: 01-08-2023 ambulatory iVc Ramos MD Work Phone: Pain Management Comment on above: 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); Neuralgia and neuritis Start: 01-08-2023 End: 01-08-2023 Telemedicine consultation with patient Vic Ramos MD Work Phone: [facility] Start: 01-06-2023 Telephone encounter Vic saldana MD Work Phone: Pain Management Comment on above: Appointment Start: 12-31-2022 End: 12-31-2022 Emergency department patient visit Mateusz Garcia [facility] Start: 12-29-2022 End: 12-29-2022 ambulatory STOCK GRADER Jaquan L Cristhian Facility:[facility] [place] [facility] Start: 12-28-2022 Telephone encounter Deacon shahid MD Work Phone: General Surgery Comment on above: Patient Update; Orde rs Start: 12-21-2022 End: 12-21-[address] [facility] Start: 12-14-2022 End: 12-14-2022 ambulatory Deacon Kat MD Work Phone: Endocrinology BMI Comment on above: Worsening Symptoms S evere Abdominal pain, unsp ecified abdominal location (Primary Dx) Start: 12-14-2022 End: 12-15-2022 Emergency department patient visit JAQUAN MORROW [facility] Start: 12-14-2022 End: 12-14-2022 Telemedicine consultation with patient Deacon Kat MD Work Phone: [facility] Start: 12-09-2022 ambulatory STOCK GRADER Jaquan Morrow Facil ity:[facility] [place] Start: 12-06-2022 End: 12-09-2022 Evaluation and management of inpatient JAQUAN MORROW Facility:[facility] Start: 12-04-2022 End: 12-04-2022 Patient encounter procedure Agustin Zamorano MD Work Phone: General Surgery Comment on above: Generalized abdomina l pain (Primary Dx) Start: 12-04-2022 End: 12-04-2022 ambulatory AGUSTIN ZAMORANO Facility:[facility] Start: 12-03-2022 Telephone encounter Oliva Dobbs RN General Surgery Start: 12-01-2022 Telephone encounter Deacon shahid MD Work Phone: Endocrinology BMI Comment on above: Patient Update Start: 12-01-2022 End: 12-01-2022 ambulatory Lokesh Terry Facility:[facility] [place] [facility] Start: 11-27-2022 End: 12-03-2022 Evaluation and management of inpatient MANDOYUVAL R MICHAEL [facility] Start: 11-26-2022 ambulatory DEACON KAT Facilit y:[facility] Start: 11-26-2022 End: 11-26-2022 Subsequent hospital visit by physician Jing/ [facility] Work Phone: CARDIOVASCULAR TESTING Comment on above: Chronic nausea [R11. 0] Start: 11-26-2022 End: 11-26-2022 ambulatory JAQUANMERCEDES ORTEGA CRISTHIAN Facility:[facility] Start: 11-25-2022 Telephone encounter [facility] Work Phone: Chronic Care Start: 11-25-2022 End: 11-25-2022 ambulatory STOCK GRADER Jaquan L Cristhian Facility:[facility] Afsaneh suarez Start: 11-23-2022 Telephone encounter Deacon shahid MD Work Phone: Endocrinology BMI Comment on above: Patient Update Start: 11-22-2022 End: 11-23-2022 ambulatory STEVE ADIBI Facility:[facility] Start: 11-17-2022 End: 11-17-2022 ambulatory Deacon Kat MD Work Phone: Endocrinology BMI Comment on above: On-Call Surgeon - Se nt to ER Start: 11-16-2022 End: 11-17-2022 Refill Deacon Kat MD Work Phone: Endocrinology BMI Start: 11-16-2022 End: 11-16-2022 Lab Drop off Jaquan Morrow [facility] Start: 11-14-2022 ambulatory Deacon long MD Work Phone: [facility] Start: 11-14-2022 Nutrition therapy Deacon turner MD Work Phone: Endocrinology BMI Comment on above: IV Nutrition Start: 11-11-2022 End: 11-12-2022 ambulatory JAQUANMERCEDES ORTEGA CRISTHIAN Facility:[facility] Start: 11-09-2022 Telephone encounter Deacon shahid MD Work Phone: Endocrinology BMI Comment on above: Surgery Rescheduled Start: 11-06-2022 ambulatory Agustin Sheets RT(R) [facility] Radiology Molecular Comment on above: Radiology NM Start: 11-06-2022 Patient encounter procedure Agustin Sheets RT(R) [facility] Start: 11-06-2022 Telephone encounter Deacon shahid MD Work Phone: Endocrinology BMI Comment on above: Patient Update Start: 11-05-2022 End: 11-08-2022 ambulatory KHMARGO HAYDEE Facility:[facility] Start: 11-04-2022 End: 11-04-2022 Patient encounter procedure Deacon Kat MD Work Phone: Endocrinology BMI Comment on above: Nausea (Primary Dx); RUQ pain; History of cholecystectomy Dehydration (Primary Dx); RUQ pain Right knee pain, uns pecified chronicity (Primary Dx) Start: 11-04-2022 End: 11-04-2022 ambulatory Rheu Chair 5 Jeanne Work Phone: Infusion Start: 11-04-2022 ambulatory DEACON KAT Facilit y:[facility] Start: 11-04-2022 End: 11-04-2022 Subsequent hospital visit by physician [facility] Work Phone: [facility] Radiology Ultrasound Comment on above: Nausea [R11.0] Start: 11-02-2022 Refill Haroon ahumada PAPER SORTER AND COUNTER.OPERATIONAL TRAINER Work Phone: Neurology Start: 11-02-2022 End: 11-02-2022 Emergency department patient visit DIMITRI WALKER [facility] Start: 11-02-2022 End: 11-02-2022 Emergency department patient visit Dimitri Walker MD Work Phone: [facility] Start: 11-01-2022 ambulatory Deacon long MD Work Phone: Endocrinology BMI Comment on above: Worsening Symptoms Problem Start: 10-31-2022 Refill Breanna Stern PAPER SORTER AND COUNTER.OPERATIONAL TRAINER Work Phone: General Surgery Comment on above: Refill Request Start: 10-31-2022 End: 10-31-2022 Emergency department patient visit WALLY FOLEY [facility] Start: 10-31-2022 End: 10-31-2022 Emergency department patient visit Jalyn Suresh DO Work Phone: [facility] ED Comment on above: Back strain, initial encounter (Primary Dx) Start: 10-27-2022 End: 10-27-2022 ambulatory JACKSON ANDERSON Facility:[facility] Start: 10-25-2022 End: 10-28-2022 ambulatory RAYNA BILLINGSLEY [facility] Start: 10-24-2022 ambulatory Deacon long MD Work Phone: Endocrinology BMI Comment on above: Symptoms Start: 10-23-2022 End: 10-23-2022 Emergency department patient visit [facility] Start: 10-21-2022 End: 10-21-2022 Emergency department patient visit JAQUAN SHANNON [facility] Facility:[facility] Start: 10-20-2022 Telephone encounter Deacon shahid MD Work Phone: General Surgery Comment on above: Patient Question; Na usea & Vomiting Start: 10-20-2022 End: 10-20-2022 Emergency department patient visit Earnest Jett [facility] Start: 10-19-2022 ambulatory Breanna Merlin PAPER SORTER AND COUNTER.OPERATIONAL TRAINER Work Phone: General Surgery Comment on above: Worsening Symptoms Start: 10-19-2022 End: 10-19-2022 Emergency department patient visit Earnest Jett [facility] Start: 10-18-2022 Emergency department patient visit JAQUAN [facility] Facility:[facility] Start: 10-17-2022 End: 10-17-2022 Emergency department patient visit [facility] Start: 10-15-2022 Refill Kasie Avalos MD Work Phone: Gastroenterology Comment on above: Refill Request Start: 10-05-2022 End: 10-05-2022 [facility] Pablo Lebron PSYD Work Phone: [...] 09-28-2022 Telemedicine consultation with patient Xiomara Zhou RD Work Phone: [facility] Start: 09-21-2022 End: 09-21-2022 [facility] Pablo Lebron [facility] Work Phone: Neurology Comment on above: ARSALAN (generalized anx iety disorder) (Primary Dx); Panic disorder without agoraphobia; Moderate recurrent major depression (HCC) Start: 09-18-2022 End: 09-18-2022 Patient encounter procedure Breanna Stern APRN.OPERATIONAL TRAINER Work Phone: General Surgery Comment on above: Encounter for surgic al aftercare following surgery of digestive system (Primary Dx); Impaired intestinal absorption; Esophageal dysphagia; Gastroesophageal reflux disease, unspecified whether esophagitis present; S/P bariatric surgery Start: 08-06-2022 ambulatory Kasie Avalos MD Work Phone: Gastroenterology Comment on above: Medication Coverage Start: 07-29-2022 End: 07-29-2022 Patient encounter procedure Rajni Rouse [facility] Start: 07-28-2022 End: 07-28-2022 Patient encounter [...] 07-20-2022 Lab Drop off Jaquan Alex Morrow [facility] Start: 06-18-2022 End: 06-18-2022 ambulatory Aliyah Washburn PA-C Work Phone: Rheumatology [facility] Comment on above: Encounter to discuss test results (Primary Dx); NO SHOW Start: 06-18-2022 End: 06-18-2022 Telemedicine consultation with patient Aliyah Wu QUIROZ Work Phone: [facility] Start: 06-12-2022 End: 06-12-2022 Patient encounter procedure Aliyah Washburn PA-C Work Phone: [facility] Comment on above: Polyarthralgia (Prim reji Dx); Malaise and fatigue; Subjective fever; S/P laparoscopic sleeve gastrectomy; History of syncope; History of adrenal insufficiency; Hypothyroidism, unspecified type Start: 06-11-2022 End: 07-24-2022 Pre-admission assessment Rui Joyner [facility] Start: 06-10-2022 End: 06-10-2022 Emergency department patient visit Ashutosh Hai Jose Ramon [facility] Start: 06-09-2022 End: 06-09-[address] DOCTOR CARRERA Facility: Start: 05-22-2022 End: 05-23-[address] WALLY FOLEY . Facility: Start: 03-30-2022 ambulatory Breanna Stern APRN.OPERATIONAL TRAINER Work Phone: [facility] Start: 03-30-2022 Patient encounter procedure Breanna Stern APRN.OPERATIONAL TRAINER Work Phone: General Surgery Comment on above: Cancel Appointment C annot Reach Anyone Start: 03-06-2022 End: 03-06-2022 Subsequent hospital visit by physician Deacon Kat MD Work Phone: [facility] Endoscopy - ENDO Comment on above: Esophageal dysphagia [R13.19] Start: 03-05-2022 Telephone encounter Li márquez RN Work Phone: Endocrinology BMI Comment on above: EGD Instructions Start: 03-05-2022 End: 03-05-2022 ambulatory Breanna Stern APRN.OPERATIONAL TRAINER Work Phone: General Surgery Comment on above: Esophageal dysphagia (Primary Dx); S/P gastric bypass; Postoperative malabsorption Start: 03-05-2022 End: 03-05-2022 Telemedicine consultation with patient Breanna Stern APRN.OPERATIONAL TRAINER Work Phone: [facility] Start: 03-02-2022 End: 03-03-[address] WALLY FOLEY . Facility: Start: 02-17-2022 End: 02-18-[address] WALLY FOLEY . Facility: Start: 02-13-2022 End: 02-13-2022 Patient encounter procedure Kuldip Yousif MD Work Phone: [employer] Comment on above: Acetabular labrum te ar, right, subsequent encounter (Primary Dx) Start: 02-13-2022 End: 02-13-2022 Subsequent hospital visit by physician Quincy [facility] Work Phone: Radiology Comment on above: Pain [R52] Start: 02-05-2022 Orders Only Deacon long MD Work Phone: Endocrinology BMI Comment on above: Postoperative pain Start: 02-04-2022 ambulatory Deacon long MD Work Phone: [facility] Lesia [facility] Start: 02-04-2022 Follow-up encounter Deacon shahid MD Work Phone: Endocrinology BMI Comment on above: Surgery Follow-Up Start: 02-04-2022 End: 02-04-2022 Admission to same day surgery center Nahed Acevedop RD Work Phone: Nutrition Therapy Comment on above: S/P gastric surgery (Primary Dx); Dietary counseling Start: 02-04-2022 End: 02-04-2022 Telemedicine consultation with patient Nahed Tamez RD Work Phone: [facility] Start: 02-03-2022 End: 02-03-2022 Patient encounter procedure Breanna Stern SLIM.OPERATIONAL TRAINER Work Phone: General Surgery Comment on above: S/P bariatric surger y (Primary Dx); Postoperative pain; Primary osteoarthritis involving multiple joints Start: 02-02-2022 Telephone encounter Deacon shahid MD Work Phone: General Surgery Comment on above: Medication Question Start: 01-31-2022 ambulatory Deacon long MD Work Phone: Endocrinology BMI Comment on above: Home prescription qu estion Start: 01-28-2022 End: 01-28-2022 Admission to establishment Pacc 2 Work Phone: [facility] Start: 01-28-2022 End: 01-28-2022 ambulatory Pacc [...] p. GJ revision) Start: 01-02-2022 End: 01-02-2022 [facility] Sabina Joy APRN.OPERATIONAL TRAINER Work Phone: General Surgery Comment on above: [...] present (Primary Dx) Start: 12-25-2021 ambulatory Deacon long MD Work Phone: Endocrinology BMI Comment on above: Revision Question Start: 12-25-2021 Chart abstracting Mateusz james Research Coordinator Gastroenterology Comment on above: Informed [...] esophagitis [K21.9] Start: 12-17-2021 Patient Update Deacon long MD Work Phone: Endocrinology BMI Comment on above: Orders (Corrected EG D & Huerta orders) Start: 11-19-2021 Patient Msg Li Kimball RN Work Phone: Endocrinology BMI Comment on above: Testing ordered by Jose Kat Start: 11-18-2021 Patient Update Breanna Stern PAPER SORTER AND COUNTER.OPERATIONAL TRAINER Work Phone: Endocrinology BMI Comment on above: Orders (pH Impedence ) Start: 11-17-2021 End: 11-17-2021 Telemedicine consultation with patient Deacon Kat MD Work Phone: [facility] Start: 11-17-2021 End: 11-17-2021 ambulatory Deacon Kat MD Work Phone: Endocrinology BMI Comment on above: Gastroesophageal ref lux disease without esophagitis (Primary Dx) Refill Request; Refi ll Request Start: 10-27-2021 End: 10-28-[address] WALLY FOLEY . Facility:[facility] Start: 10-21-2021 Telephone encounter Kuldip mckeon MD Work Phone: [facility] Comment on above: Appointment Start: 10-09-2021 End: 10-09-2021 [facility] Sabina Joy PAPER SORTER AND COUNTER.OPERATIONAL TRAINER Work Phone: General Surgery Comment on above: Gastroesophageal ref lux disease, unspecified whether esophagitis present (Primary Dx); Bariatric surgery status; Weight disorder; Class 1 obesity with serious comorbidity and body mass index (BMI) of 31.0 to 31.9 in adult, unspecified obesity type; S/P laparoscopic sleeve gastrectomy; Dietary counseling and surveillance Start: 10-08-2021 ambulatory Kuldip Yousif MD Work Phone: [facility] Start: 10-08-2021 Patient encounter procedure Kuldip Yousif MD Work Phone: [facility] Comment on above: Appointment Time Tod ay Start: 10-04-2021 End: 10-05-[address] WALLY FOLEY . Facility:[facility] Start: 08-30-2021 End: 08-30-2021 Emergency department patient visit Pablo Atwood DO Work Phone: [facility] ED Comment on above: Dental infection (Pr imary Dx) Start: 08-29-2021 End: 08-29-2021 ambulatory Justine Shabazz PA-C Work Phone: [facility] Comment on above: Tear of right acetab ular labrum, subsequent encounter (Primary Dx) Start: 08-29-2021 End: 08-29-2021 Telemedicine consultation with patient Justine Johnson Mele GONZALEZC Work Phone: [facility] [address] Start: 08-28-2021 Refill Justine Johnson Nicki INMAN-C Work Phone: [facility] Comment on above: Refill Request Start: 08-28-2021 End: 08-28-2021 ambulatory Xiomara Terrymichael GARLAND Work Phone: General Surgery Comment on above: S/P laparoscopic sle dee dee gastrectomy (Primary Dx); Obesity, Class I, BMI 30-34.9; Dietary counseling and surveillance Start: 08-28-2021 End: 08-28-2021 Telemedicine consultation with patient Xiomara Zhou RD Work Phone: [facility] Start: 08-25-2021 Encounter for genera l adult medical examination without abnormal findings [facility] Start: 08-24-2021 ambulatory Deacon long MD Work Phone: Endocrinology BMI Comment on above: Possible Revision Di scussion Start: 08-22-2021 End: 08-22-2021 Refill Ksaie Avalos MD Work Phone: Gastroenterology Comment on above: Refill Request Start: 08-22-2021 Telephone encounter Shanna hooks [facility] Start: 08-21-2021 End: 08-22-2021 Encounter for general adult medical examination without abnormal findings DR WALLY FOLEY . Facility:[facility] Start: 08-21-2021 End: 08-22-[address] WALLY FOLEY . Facility:[facility] Start: 08-19-2021 End: 08-20-[address] WALLY FOLEY . Facility:[facility] Start: 08-17-2021 End: 08-17-2021 ambulatory Shanna June Other [facility] Other Start: 08-17-2021 Office outpatient vi sit 15 minutes Shanna June [facility] Start: 08-14-2021 Refill Justine Johnson Banj ac PA-C Work Phone: [facility] Comment on above: Refill Request Start: 08-01-2021 End: 08-01-2021 ambulatory Justine Johnson Elizabethc PA-C Work Phone: [facility] Comment on above: Tear of right acetab ular labrum, subsequent encounter (Primary Dx) Start: 08-01-2021 End: 08-01-2021 Telemedicine consultation with patient Justine Serranogenec PA-C Work Phone: [facility] [address] Start: 07-30-2021 End: 07-30-[address] MARCOS MORENO . Facility:[facility] Start: 07-28-2021 ambulatory Justine Alex Banj ac PA-C Work Phone: [facility] [address] Start: 07-28-2021 Patient encounter procedure Justine Johnson Elizabethc PA-C Work Phone: [facility] Comment on above: Virtual Appointment Start: 07-27-2021 End: 07-27-2021 Emergency department patient visit Angela Do MD Work Phone: [facility] ED Comment on above: Generalized abdomina l pain (Primary Dx) Start: 07-14-2021 ambulatory Justine Johnson Banj ac PA-C Work Phone: [facility] Comment on above: Medication Start: 07-11-2021 End: 08-26-[address] DOCTOR CARRERA Facility:[facility] Start: 07-04-2021 End: 07-04-2021 ambulatory Justine Johnson Banjac PA-C Work Phone: [facility] Comment on above: Tear of right acetab ular labrum, subsequent encounter (Primary Dx) Start: 07-04-2021 End: 07-04-2021 Telemedicine consultation with patient Justine Johnsonc PA-C Work Phone: [facility] Start: 06-23-2021 Admission to same [facility] Jace Galvan Gerald AT Work Phone: [facility] Comment on above: Schedule Surgery Start: 06-23-2021 ambulatory Jace Lara ck AT Work Phone: [facility] [address] Start: 06-18-2021 End: 06-18-2021 Subsequent hospital visit by physician Quincy [facility] Work Phone: Radiology Comment on above: Acetabular labrum te ar, right, initial encounter [S73.191A] Start: 06-18-2021 End: 06-18-2021 Patient encounter procedure Kuldip Yousif MD Work Phone: [facility] Comment on above: Acetabular labrum te ar, right, initial encounter (Primary Dx) Start: 06-02-2021 ambulatory LUCIE MORA Faci lity:[facility] Start: 06-02-2021 End: 06-02-2021 Office outpatient visit 15 minutes Lucie Mora MD Work Phone: [facility] Comment on above: 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) Start: 04-02-2021 End: 04-02-2021 ambulatory Shanna June Other [facility] Other Start: 04-02-2021 Telephone encounter Shanna hooks [facility] Start: 03-31-2021 End: 03-31-2021 ambulatory Shanna June Other [facility] Other Start: 03-31-2021 Office outpatient vi sit 15 minutes Shanna June [facility] Start: 03-10-2021 End: 03-10-2021 ambulatory Shanna June Other [facility] Other Start: 03-10-2021 Telephone encounter Shanna hooks [facility] Start: 01-28-2021 End: 01-28-2021 ambulatory Shanna June Other [facility] Other Start: 01-28-2021 Office outpatient vi sit 15 minutes Shanna June [facility] Start: 12-17-2020 End: 12-17-2020 ambulatory Shanna June Other [facility] Other Start: 12-17-2020 Encounter for genera l adult medical examination without abnormal findings Shanna June [facility] Start: 12-17-2020 Periodic preventive med est patient 18-39 yrs Shanna June [facility] Start: 12-14-2020 End: 12-14-2020 Emergency department patient visit Shanna June PAPER SORTER AND COUNTER - VISUAL TRAINING AIDE Work Phone: [facility] ED Comment on above: Contusion of right t humb without damage to nail, initial encounter (Primary Dx) Start: 12-09-2020 ambulatory LUCIE Foster lity:[facility] Start: 07-02-2020 End: 07-02-2020 Emergency department patient visit Vaughn Ceja MD Work Phone: [facility] Start: 01-30-2020 End: 01-30-2020 Emergency department patient visit Agustin Gustafson Work Phone: [facility] Start: 09-25-2019 End: 08-04-2023 Preprocedural examination done Kuldip Yousif MD Work Phone: [facility] Work Phone: Start: 09-10-2017 End: 09-11-2017 Patient encounter DEFAULT PHYSICIAN Facility:[facility] Procedures Date Procedure Procedure Detail Performing Clinician Start: 11-01-2023 TPN FORMULA FLOW PRESCRIPTION [facility] Provid er Start: 11-01-2023 SURGICAL PATHOLOGY Chichi Miller MD Work Phone: Start: 11-01-2023 Gluc bld gluc mntr dev cleared fda spec home use Stephanie Telerman PAPER SORTER AND COUNTER.OUTSIDE LABORER Work Phone: Start: 11-01-2023 Esophagoscp rig transoral hypopharynx crv rene Avalos MD Work Phone: Start: 08-26-2023 Esophagoscp rig transoral hypopharynx crv rene Avalos MD Work Phone: Start: 08-21-2023 Computed tomography of abdomen and pelvis with contrast VISUAL TRAINING AIDE-C Jaquan Cristhian Work Phone: Start: 08-14-2023 Computed tomography of abdomen and pelvis with contrast VISUAL TRAINING AIDE-C Jaquan Cristhian Work Phone: Start: 07-31-2023 Computed tomography of abdomen and pelvis with contrast VISUAL TRAINING AIDE-C Jaquan Cristhian Work Phone: Start: 07-16-2023 Computed tomography of abdomen and pelvis with contrast VISUAL TRAINING AIDE-C Jaquan Cristhian Work Phone: Start: 07-15-2023 Follow-up visit Follow Up RYLEE THACKER Start: 07-06-2023 Urnls dip stick/tablet rgnt auto w/o microscopy Bulk Order Provider Start: 07-03-2023 LONG CATHETER REMOVAL SHERRY MAGAÑA Start: 07-03-2023 DISCHARGE PATIENT SHERRY MAGAÑA Start: 07-03-2023 Glucose [Mass/volume] in Serum or Plasma WOBAHMAN MAGAÑA Start: 07-03-2023 Glucose quantitative blood xcpt [...] 07-02-2023 Glucose [Mass/volume] in Serum or Plasma [facility] Start: 07-02-2023 Glucose quantitative blood xcpt reagent strip Kina Ann MD Work Phone: Start: 07-02-2023 DO NOT REMOVE URINARY CATHETER WITHOUT PROVIDER ORDER [facility] Start: 07-02-2023 Glucose [Mass/volume] in Serum or Plasma [facility] Start: 07-02-2023 CBC panel - Blood by Automated count [facility] Start: 07-02-2023 RENAL FUNCTION PANEL [facility] Start: 07-02-2023 Glucose quantitative blood xcpt reagent strip Dolores Cxo MD Work Phone: Start: 07-02-2023 Renal function panel Dolores Cox MD Work Phone: Start: 07-02-2023 Glucose [Mass/volume] in Serum or Plasma [facility] Start: 07-01-2023 Glucose quantitative blood xcpt reagent strip Dolores Cox MD Work Phone: Start: 07-01-2023 Glucose [Mass/volume] in Serum or Plasma [facility] Start: 07-01-2023 Glucose quantitative blood xcpt reagent strip Dolores Cox MD Work Phone: Start: 07-01-2023 Glucose [Mass/volume] in Serum or Plasma [facility] Start: 07-01-2023 Glucose quantitative blood xcpt reagent strip Dolores Cox MD Work Phone: Start: 07-01-2023 XR CHEST 1 VIEW [facility] Start: 07-01-2023 Glucose [Mass/volume] in Serum or Plasma [facility] Start: 07-01-2023 Glucose [Mass/volume] in Serum or Plasma [facility] Start: 07-01-2023 Radiologic exam chest single view Yajairam aamir Cox MD Work Phone: Start: 07-01-2023 Glucose quantitative blood xcpt reagent strip Dolroes Cox MD Work Phone: Start: 07-01-2023 Glucose quantitative blood xcpt reagent strip Dolores Cox MD Work Phone: Start: 07-01-2023 Glucose [Mass/volume] in Serum or Plasma [facility] Start: 07-01-2023 Glucose quantitative blood xcpt reagent strip Dolores Cox MD Work Phone: Start: 07-01-2023 CBC panel - Blood by Automated count [facility] Start: 07-01-2023 Magnesium [Mass/volume] in Serum or [facility] Start: 07-01-2023 RENAL FUNCTION PANEL [facility] Start: 07-01-2023 Renal function panel Dolores Cox MD Work Phone: Start: 07-01-2023 BATH/SHOWER WITH CHLORHEXIDINE GLUCONATE [facility] Start: 06-30-2023 Glucose [Mass/volume] in Serum or Plasma [facility] Start: 06-30-2023 Glucose quantitative blood xcpt reagent strip Dolores Cox MD Work Phone: Start: 06-30-2023 MAY PARTICIPATE IN ROOM SERVICE [facility] Jonh BRAY Start: 06-30-2023 IP CONSULT TO SPIRITUAL CARE [facility] Start: 06-30-2023 IP CONSULT TO NUTRITION SERVICES [facility] Start: 06-30-2023 IP CONSULT TO SOCIAL WORK [facility] [facility] Start: 06-30-2023 IP CONSULT TO RESPIRATORY CARE [facility] HENNY CASTILLO Start: 06-30-2023 NOTIFY PROVIDER (DO NOT PROMPT FOR PARAMETERS) [facility] Start: 06-30-2023 NURSING COMMUNICATION [facility] Start: 06-30-2023 PULSE OXIMETRY, CONTINUOUS [facility] Start: 06-30-2023 ECG 12-LEAD [facility] Start: 06-30-2023 STAPHYLOCOCCUS AUREUS/MRSA COLONIZATION, CULTURE [facility] Start: 06-30-2023 Glucose [Mass/volume] in Serum or Plasma [facility] Start: 06-30-2023 CT ANGIO ABDOMEN PELVIS W AND/OR WO IV IV CONTRAST [facility] Start: 06-30-2023 VASC US MESENTERIC ARTERY DUPLEX COMPLETE [facility] Start: 06-30-2023 Glucose quantitative blood xcpt reagent strip Baldomero Woodard MD Work Phone: Start: 06-30-2023 Ct angio abd&plvis cntrst mtrl w/wo cntrst img Tiffanie Mendez PAPER SORTER AND COUNTER-OPERATIONAL TRAINER Work Phone: Start: 06-30-2023 Dup-scan artl tiara abdl/pel/scrot&/rpr orgn com Jamil Gavin MD Work Phone: Start: 06-30-2023 CBC panel - Blood by Automated count [facility] Start: 06-30-2023 Comprehensive metabolic 2000 panel - Serum or Plasma [facility] Start: 06-30-2023 Magnesium [Mass/volume] in Serum or Plasma [facility] Start: 06-30-2023 Phosphate [Mass/volume] in Serum or Plasma [facility] Start: 06-30-2023 Comprehensive metabolic panel Baldomero serrano MD Work Phone: Start: 06-30-2023 IP CONSULT TO VASCULAR SURGERY [facility] HENNY CASTILLO Start: 06-30-2023 CENTRAL VENOUS LINE CAP CHANGE - ADULTS [facility] Start: 06-30-2023 CENTRAL VENOUS LINE DRESSING CHANGE - ADULT [facility] Start: 06-30-2023 CENTRAL VENOUS LINE TUBING CHANGE - ADULTS [facility] Start: 06-30-2023 IP CONSULT TO ACUTE CARE SURGERY [facility] Start: 06-30-2023 GASTRIC TUBE CARE [facility] Start: 06-30-2023 NOTIFY PROVIDER (PROMPT FOR PARAMETERS) [facility] Start: 06-30-2023 NURSING COMMUNICATION [facility] Start: 06-30-2023 NURSING COMMUNICATION - DO NOT USE IN ORDER SETS [facility] Start: 06-30-2023 POCT GLUCOSE METER [facility] Start: 06-30-2023 EXTRA URINE [place] TUBE [facility] Start: 06-30-2023 HCG, URINE, QUALITATIVE [facility] Start: 06-30-2023 URINALYSIS WITH REFLEX CULTURE AND MICROSCOPIC [facility] Start: 06-30-2023 ADMIT TO INPATIENT [employer] Start: 06-30-2023 ED TO FLOOR BED REQUEST [employer] Start: 06-30-2023 EXTRA URINE [place] TUBE David Valadez DO Work Phone: Start: 06-30-2023 Urinalysis complete W Reflex Culture panel - Urine David Valadez [employer] Work Phone: Start: 06-30-2023 Urnls dip stick/tablet rgnt auto w/o microscopy David Valadez DO Work Phone: Start: 06-30-2023 CT ABDOMEN PELVIS WO IV CONTRAST [employer] Start: 06-29-2023 Ct abdomen & pelvis w/o contrast material David Valadez [employer] Work Phone: Start: 06-29-2023 Basic metabolic 2000 panel - Serum or Plasma [employer] Start: 06-29-2023 CBC panel - Blood by Automated count [employer] Start: 06-29-2023 Glucose [Mass/volume] in Serum or Plasma [employer] Start: 06-29-2023 CBC W Auto Differential panel - Blood [employer] Start: 06-29-2023 Comprehensive metabolic 2000 panel - Serum or Plasma [employer] Start: 06-29-2023 Comprehensive metabolic panel David rowland [employer] Work Phone: Start: 06-29-2023 Ecg routine ecg w/least 12 lds trcg only w/o i&r David Valadez [employer] Work Phone: Start: 06-29-2023 End: 06-29-2023 Comprehensive metabolic panel David rowland DO Work Phone: Start: 06-18-2023 Electrocardiogram JAQUAN CRISTHIAN Start: 05-30-2023 Computed tomography of abdomen and pelvis with contrast VISUAL TRAINING AIDE-C Jaquan Cristhian Work Phone: Start: 05-30-2023 Urine culture VISUAL TRAINING AIDE-C Jaquan Cristhian Work Phone: Start: 05-25-2023 Esophagoscp rig transoral hypopharynx crv esoph Rajni Rouse Start: 05-20-2023 Esophagoscp rig transoral hypopharynx crv esoph Rajni Rouse Start: 05-12-2023 Esophagogastroduodenoscopy Moncho ahumada Start: 04-06-2023 Computed tomography of abdomen and pelvis with contrast PAO Morrow Work Phone: Start: 03-20-2023 DISCHARGE PATIENT [facility] Start: 03-19-2023 DISCHARGE PATIENT [facility] Start: 03-19-2023 Esophagogastroduodenoscopy [facility] Start: 03-19-2023 SURGICAL PATHOLOGY EXAM [facility] Start: 03-19-2023 Egd transoral biopsy single/multiple Deepika Roy PAPER SORTER AND COUNTER-OPERATIONAL TRAINER Work Phone: Start: 03-19-2023 CBC panel - Blood by Automated count [facility] Start: 03-19-2023 Comprehensive metabolic 2000 panel - Serum or Plasma [facility] Start: 03-19-2023 Comprehensive metabolic panel Tiffanie Cruz all PAPER SORTER AND COUNTER-OPERATIONAL TRAINER Work Phone: Start: 03-18-2023 CBC panel - Blood by Automated count [facility] Start: 03-18-2023 Comprehensive metabolic 2000 panel - Serum or Plasma [facility] Start: 03-18-2023 Comprehensive metabolic panel Tiffanie Cruz all PAPER SORTER AND COUNTER-OPERATIONAL TRAINER Work Phone: Start: 03-17-2023 XR CHEST 1 VIEW [facility] Start: 03-17-2023 Radiologic exam chest single view Tiffanie Mendez PAPER SORTER AND COUNTER-OPERATIONAL TRAINER Work Phone: Start: 03-17-2023 FL UPPER GI W DOUBLE CONTRAST W SMALL BOWEL FOLLOW THROUGH [facility] Start: 03-17-2023 Radiologic exam upr gi trc double contrast study Tiffanie Mendez PAPER SORTER AND COUNTER-OPERATIONAL TRAINER Work Phone: Start: 03-17-2023 XR CHEST 1 VIEW [facility] Start: 03-17-2023 Radiologic exam chest single view Tiffanie Mendez PAPER SORTER AND COUNTER-OPERATIONAL TRAINER Work Phone: Start: 03-17-2023 CBC panel - Blood by Automated count [facility] Start: 03-17-2023 Comprehensive metabolic 2000 panel - Serum or Plasma [facility] Start: 03-17-2023 ECG 12-LEAD [facility] Start: 03-17-2023 Comprehensive metabolic panel Tiffanie hartman [facility] Work Phone: Start: 03-16-2023 CT ABDOMEN PELVIS W IV CONTRAST [facility] Start: 03-16-2023 Ct abdomen & pelvis w/contrast material Tiffanie Mendez [facility] Work Phone: Start: 03-16-2023 ED TO FLOOR BED REQUEST [facility] Start: 03-16-2023 PULSE OXIMETRY, CONTINUOUS [facility] Start: 03-16-2023 TELEMETRY MONITORING [facility] Start: 03-16-2023 MEASURE HEIGHT [facility] Start: 03-16-2023 ORTHOSTATIC BLOOD PRESSURE [facility] Start: 03-16-2023 WEIGH PATIENT [facility] Start: 03-16-2023 ADMIT TO INPATIENT [facility] Start: 03-16-2023 CBC W Auto Differential panel - Blood [facility] Start: 03-16-2023 Comprehensive metabolic 2000 panel - Serum or Plasma [facility] Start: 03-16-2023 SARS-COV-2 AND INFLUENZA A/B PCR [facility] Start: 03-16-2023 PULSE OXIMETRY, CONTINUOUS Tiffanie Mendez [facility] Work Phone: Start: 03-16-2023 Comprehensive metabolic panel Melisa lipscomb MD Work Phone: Start: 03-16-2023 Influenza virus A and B and SARS-CoV-2 (COVID-19) identified in Respiratory specimen by HANK with probe detection Melisa Barker MD Work Phone: Start: 03-10-2023 DISCHARGE PATIENT [facility] Start: 03-10-2023 DISCHARGE INSTRUCTIONS [facility] Start: 03-10-2023 Glucose [Mass/volume] in Serum or Plasma [facility] Start: 03-10-2023 Glucose quantitative blood xcpt reagent strip Dolores Cox MD Work Phone: Start: 03-10-2023 Glucose [Mass/volume] in Serum or Plasma [facility] Start: 03-10-2023 Glucose quantitative blood xcpt reagent strip Dolores Cox MD Work Phone: Start: 03-10-2023 Basic metabolic 2000 panel - Serum or Plasma [facility] Start: 03-10-2023 CBC panel - Blood by Automated count [facility] Start: 03-10-2023 Glucose [Mass/volume] in Serum or Plasma [facility] Start: 03-10-2023 End: 03-10-2023 Basic metabolic panel calcium total Alicia Toro PAPER SORTER AND COUNTER-OPERATIONAL TRAINER Work Phone: Start: 03-10-2023 POCT GLUCOSE METER [facility] Start: 03-10-2023 Glucose [Mass/volume] in Serum or Plasma [facility] Start: 03-10-2023 Glucose quantitative blood xcpt reagent strip Dolores Cox MD Work Phone: Start: 03-09-2023 Glucose [Mass/volume] in Serum or Plasma [facility] Start: 03-09-2023 Glucose quantitative blood xcpt reagent strip Dolores Cox MD Work Phone: Start: 03-09-2023 Glucose [Mass/volume] in Serum or Plasma [facility] Start: 03-09-2023 Glucose quantitative blood xcpt reagent strip Dolores Cox MD Work Phone: Start: 03-09-2023 C. DIFFICILE, PCR [facility] Start: 03-09-2023 STOOL PATHOGEN PANEL, PCR [facility] Start: 03-09-2023 Glucose [Mass/volume] in Serum or Plasma [facility] Start: 03-09-2023 Iadna-dna/rna gi pthgn multiplex probe tq 6-11 Alicia Toro PAPER SORTER AND COUNTER-OPERATIONAL TRAINER Work Phone: Start: 03-09-2023 Inf agent det nucleic acid clostridium amp probe Alicia Toro PAPER SORTER AND COUNTER-OPERATIONAL TRAINER Work Phone: Start: 03-09-2023 IP CONSULT TO NUTRITION SERVICES [facility] Start: 03-09-2023 Glucose quantitative blood xcpt reagent strip Dolores Cox MD Work Phone: Start: 03-09-2023 Glucose [Mass/volume] in Serum or Plasma [facility] Start: 03-09-2023 ECG 12-LEAD [facility] Start: 03-09-2023 Basic metabolic 2000 panel - Serum [facility] Start: 03-09-2023 CBC panel - Blood by Automated count [facility] Start: 03-09-2023 Glucose quantitative blood xcpt reagent strip Dolores Cox MD Work Phone: Start: 03-09-2023 Glucose [Mass/volume] in Serum or Plasma [facility] Start: 03-09-2023 Basic metabolic panel calcium total Alicia Toro PAPER SORTER AND COUNTER-[facility] Work Phone: Start: 03-09-2023 Glucose [Mass/volume] in Serum or Plasma [facility] Start: 03-09-2023 Glucose quantitative blood xcpt reagent strip Dolores Cox MD Work Phone: Start: 03-09-2023 Glucose quantitative blood xcpt reagent strip Dolores Cox MD Work Phone: Start: 03-09-2023 POCT GLUCOSE METER [facility] Start: 03-09-2023 Glucose [Mass/volume] in Serum or Plasma [facility] Start: 03-08-2023 Glucose quantitative blood xcpt reagent strip Dolores Cox MD Work Phone: Start: 03-08-2023 Glucose [Mass/volume] in Serum or Plasma [facility] Start: 03-08-2023 Glucose quantitative blood xcpt reagent strip Dolores Cox MD Work Phone: Start: 03-08-2023 Glucose [Mass/volume] in Serum or Plasma [facility] Start: 03-08-2023 Glucose quantitative blood xcpt reagent strip Dolores Cox MD Work Phone: Start: 03-08-2023 ECG 12-LEAD SHERRY MAGAÑA Start: 03-08-2023 Glucose [Mass/volume] in Serum or Plasma [facility] Start: 03-08-2023 Glucose quantitative blood xcpt reagent strip Dolores Cxo MD Work Phone: Start: 03-08-2023 Basic metabolic 2000 panel - Serum or Plasma [facility] Start: 03-08-2023 CBC panel - Blood by Automated count [facility] Start: 03-08-2023 Glucose [Mass/volume] in Serum or Plasma [facility] Start: 03-08-2023 End: 03-08-2023 Basic metabolic panel calcium total Chrissy Harris PA-C Work Phone: Start: 03-08-2023 INSERT URETHRAL CATHETER [facility] Start: 03-08-2023 POCT GLUCOSE METER [facility] Start: 03-08-2023 Glucose [Mass/volume] in Serum or Plasma [facility] Start: 03-08-2023 Glucose quantitative blood xcpt reagent strip Karma Sharpe MD Work Phone: Start: 03-07-2023 Glucose [Mass/volume] in Serum or Plasma [facility] Start: 03-07-2023 Glucose quantitative blood xcpt reagent strip Karma Sharpe MD Work Phone: Start: 03-07-2023 Glucose [Mass/volume] in Serum or Plasma [facility] Start: 03-07-2023 Glucose quantitative blood xcpt reagent strip Karma Sharpe MD Work Phone: Start: 03-07-2023 Glucose [Mass/volume] in Serum or Plasma [facility] Start: 03-07-2023 Glucose quantitative blood xcpt reagent strip Karma Sharpe MD Work Phone: Start: 03-07-2023 Glucose [Mass/volume] in Serum or Plasma [facility] Start: 03-07-2023 Glucose quantitative blood xcpt reagent strip Karma Sharpe MD Work Phone: Start: 03-07-2023 Basic metabolic 2000 panel - Serum or Plasma [facility] Start: 03-07-2023 CBC panel - Blood by Automated count [facility] Start: 03-07-2023 Glucose [Mass/volume] in Serum or Plasma [facility] Start: 03-07-2023 Basic metabolic panel calcium total Chrissy Harris PA-C Work Phone: Start: 03-07-2023 RESPIRATORY CARE EVALUATION ONLY [facility] Start: 03-07-2023 Glucose quantitative blood xcpt reagent strip Karma Sharpe MD Work Phone: Start: 03-07-2023 POCT GLUCOSE METER [facility] Start: 03-07-2023 RESPIRATORY CARE EVALUATION ONLY Karma siegel MD Work Phone: Start: 03-07-2023 Glucose [Mass/volume] in Serum or Plasma [facility] Start: 03-06-2023 Glucose quantitative blood xcpt reagent strip Karma Sharpe MD Work Phone: Start: 03-06-2023 Glucose [Mass/volume] in Serum or Plasma [facility] Start: 03-06-2023 TELEMETRY MONITORING [facility] Start: 03-06-2023 Glucose quantitative blood xcpt reagent strip Karma Sharpe MD Work Phone: Start: 03-06-2023 TRANSFER PATIENT TO NEW UNIT [facility] Start: 03-06-2023 Glucose [Mass/volume] in Serum or Plasma [facility] Start: 03-06-2023 Glucose quantitative blood xcpt reagent strip Karma Sharpe MD Work Phone: Start: 03-06-2023 Glucose [Mass/volume] in Serum or Plasma [facility] Start: 03-06-2023 Glucose quantitative blood xcpt reagent strip Corie Head MD Work Phone: Start: 03-06-2023 Glucose [Mass/volume] in Serum or Plasma [facility] Start: 03-06-2023 XR CHEST 1 VIEW [facility] Start: 03-06-2023 Glucose quantitative blood xcpt reagent strip Corie Head MD Work Phone: Start: 03-06-2023 Radiologic exam chest single view Shona Foster PAPER SORTER AND COUNTER-OPERATIONAL TRAINER Work Phone: Start: 03-06-2023 Basic metabolic 2000 panel - Serum or Plasma [facility] Start: 03-06-2023 CBC panel - Blood by Automated count [facility] Start: 03-06-2023 Magnesium [Mass/volume] in Serum or Plasma [facility] Start: 03-06-2023 Phosphate [Mass/volume] in Serum or Plasma [facility] Start: 03-06-2023 Glucose [Mass/volume] in Serum or Plasma [facility] Start: 03-06-2023 Basic metabolic panel calcium total Chrissy Steven INMAN-C Work Phone: Start: 03-06-2023 Glucose quantitative blood xcpt reagent strip Corie Head MD Work Phone: Start: 03-06-2023 POCT GLUCOSE METER [facility] Start: 03-06-2023 PT EVAL AND TREAT [facility] Start: 03-06-2023 Glucose [Mass/volume] in Serum or Plasma [facility] Start: 03-05-2023 Glucose quantitative blood xcpt reagent strip Corie Head MD Work Phone: Start: 03-05-2023 Glucose [Mass/volume] in Serum or Plasma [facility] Start: 03-05-2023 Glucose quantitative blood xcpt reagent strip Corie Head MD Work Phone: Start: 03-05-2023 Glucose [Mass/volume] in Serum or Plasma [facility] Start: 03-05-2023 Basic metabolic 2000 panel - Serum or Plasma [facility] Start: 03-05-2023 CBC panel - Blood by Automated count [facility] Start: 03-05-2023 Magnesium [Mass/volume] in Serum or Plasma [facility] Start: 03-05-2023 Phosphate [Mass/volume] in Serum or Plasma [facility] Start: 03-05-2023 XR CHEST 1 VIEW [facility] Start: 03-05-2023 POCT GLUCOSE METER [facility] Start: 03-05-2023 MEASURE HEIGHT SHERRY MAGAÑA Start: [...] SHERRY GÓMEZ Start: 03-05-2023 SURGICAL PATHOLOGY EXAM [facility]ME[facility] Start: 03-05-2023 PULSE OXIMETRY, CONTINUOUS Serena [...] 03-05-2023 Radiologic exam chest single view Edmund ying Mooret DO Work Phone: Start: 03-02-2023 Basic metabolic [...] GENERIC PROVIDER Start: 01-14-2023 ECG 12-LEAD [facility] Start: 01-14-2023 VASC US MESENTERIC ARTERY DUPLEX COMPLETE [facility] Start: 01-14-2023 Follow-up visit Follow-up [facility] Start: 01-13-2023 HCG, URINE, QUALITATIVE [facility] Start: 01-13-2023 URINALYSIS WITH REFLEX MICROSCOPIC [facility] Start: 01-13-2023 CBC W Auto Differential panel - Blood [facility] Start: 01-13-2023 Comprehensive metabolic 2000 panel - Serum or Plasma [facility] Start: 11-26-2022 Dup-scan artl tiara abdl/pel/scrot&/rpr orgn com Deacon Kat MD Work Phone: Start: 11-11-2022 Antibody screen JAQUAN MORROW Comment on above: Order Comment: Specimen Type: BLOOD SPEC IMENOrdering Facility: [facility] Address: [address] [place] [address] Performed By: #### T SCR ####[facility] [id number] [address] [place] Start: 11-11-2022 Ercp [...] History of Tan-en-Y gastric bypass Breanna Stern PAPER SORTER AND COUNTER.OPERATIONAL TRAINER Work Phone: Start: 03-06-2022 Esophagoscp rig transoral hypopharynx crv esoph Breanna Stern PAPER SORTER AND COUNTER.OPERATIONAL TRAINER Work Phone: Start: 02-13-2022 Radex hip unilateral with pelvis 2-3 views Kuldip Yousif MD Work Phone: Start: 01-29-2022 Revision - value (qualifier value) Ashutosh Albright Comment on above: gastric sleeve revision Start: 01-28-2022 Antibody screen Pacc 2 Work Phone: Start: 01-28-2022 Ecg routine ecg w/least 12 lds trcg only w/o i&r [facility] Provider Start: 12-25-2021 Esophagoscp rig transoral hypopharynx crv esoph Deacon Kat MD Work Phone: Start: 08-30-2021 NERVE BLOCK Pablo Abbasi Rai DO Work Phone: Start: 07-27-2021 Ct abdomen & pelvis w/contrast material Angela Do MD Work Phone: Start: 07-27-2021 Assay of lactate Angela Do MD Work Phone: Start: 07-27-2021 Radiologic exam chest single view Jesse Do MD Work Phone: Start: 07-27-2021 Urinalysis microscopic only Angela keyes MD Work Phone: Start: 07-27-2021 Urnls dip stick/tablet rgnt auto w/o microscopy Angela Do MD Work Phone: Start: 06-18-2021 Radex hip unilateral with pelvis 2-3 views Kuldip Yousif MD Work Phone: Start: 02-15-2021 Gastric sleeve Sanchoit Jose Ramon Comment on above: Date is not exact Start: 01-20-2021 Esophagogastroduodenoscopy Ashutosh Rivera i Start: 12-14-2020 Radex fingr minimum 2 views Vicky Olmedo MD Work Phone: Start: 11-04-2020 Hysterectomy Sanchoit Hasamm Start: 07-02-2020 Us pelvic nonobstetric real-time image [...] Cholecystectomy Rajni Lue Colonoscopy Rajni Lue H/O: hysterectomy S/P hysterectomy Mirna Carrillo MD [...] of 2) Zoster Vaccines (1 of 2) [facility] Start: 09-21-2026 DTaP/Tdap/Td vaccine (2 - Td or Tdap) DTaP/Tdap/Td vaccine (2 - Td or Tdap) [facility] Start: 09-21-2026 DTaP/Tdap/Td Vaccines (2 - Td or Tdap) DTaP/Tdap/Td Vaccines (2 - Td or Tdap) [facility] Start: 09-21-2026 Tetanus vaccination TETANUS [facility] Start: 09-21-2026 Urine microalbumin profile [facility] Start: 10-12-2024 BP Controlled (<130/80) BP Controlled (<130/80) [facility] Start: 08-08-2024 BP Controlled (<130/80) BP Controlled (<130/80) [facility] Start: 07-02-2024 Diabetes mellitus screening Diabetes Screening [facility] Start: 04-27-2024 BP Controlled (<130/80) BP Controlled (<130/80) [facility] Start: 03-10-2024 Diabetes mellitus screening Diabetes Screening [facility] Start: 01-21-2024 End: 01-21-2024 Patient encounter procedure 01/21/2024 4:40 PM EST Office Visit Dermatology [address] [phone] Samara Evans MD [address] [phone] new tiny black spots on hand & arm Dermatology Comment on above: new tiny black spots on hand & arm Start: 01-19-2024 End: 01-19-2024 Patient encounter procedure 01/19/2024 10:00 AM EST Office Visit Endocrinology [address] [facility] [place] [phone] Hilario Rao MD [address] [phone] Hypoglycemia and Adrenal Issues Endocrinology Comment on above: Hypoglycemia and Adrenal Issues Start: 12-28-2023 End: 12-28-2023 Patient encounter procedure 12/28/2023 1:30 PM EST Office Visit Colorectal Surgery [address] [facility] [address] [place] [address] Andie Mejias APRN.OPERATIONAL TRAINER [address] [place] [address] Abnormal defecation [R19.8] Colorectal Surgery Comment on above: Abnormal defecation [R19.8] Start: 12-28-2023 End: 12-28-2023 Admission to same day surgery center 12/28/2023 1:00 PM EST Procedure Colorectal Surgery [address] [address] Andie Mejias APRN.OPERATIONAL TRAINER [address] [place] [address] Abnormal defecation [R19.8] Colorectal Surgery Comment on above: Abnormal defecation [R19.8] Start: 12-22-2023 End: 12-22-2023 ambulatory 12/22/2023 9:30 AM EST [facility] Gastroenterology [address] [address] Georgina Carrillo MD [facility] [address] [phone] Dietitian, Cgrt [address] [place], [place] [phone] CGRT / VIRTUAL Gastroenterology Comment on above: CGRT / VIRTUAL Start: 12-21-2023 End: 12-21-2023 Patient encounter procedure 12/21/2023 11:30 AM EST Office Visit Colorectal Surgery [address] [address] Andie Mejias APRN.OPERATIONAL TRAINER [address] [place] [address] Abnormal defecation [R19.8] Colorectal Surgery Comment on above: Abnormal defecation [R19.8] Start: 12-21-2023 End: 12-21-2023 Admission to same day surgery center 12/21/2023 11:00 AM EST Procedure Colorectal Surgery [address] [place], [place] [phone] Andie Mejias, PAPER SORTER AND COUNTER.OPERATIONAL TRAINER [address] [place] [address] Abnormal defecation [R19.8] Colorectal Surgery Comment on above: Abnormal defecation [R19.8] Start: 12-09-2023 End: 12-09-2023 Admission to same day surgery center 12/09/2023 8:45 AM EDT Education General Surgery BMI [address] [place] [address] Quyen Chavira, RD [address] [place] [address] enternal nutrition- jtubePEJ tube Exchange (Establish tract >4 weeks) (PAPER SORTER AND COUNTER), please change to button. General Surgery BMI Comment on above: enternal nutrition- jtubePEJ tube Exchan ge (Establish tract >4 weeks) (PAPER SORTER AND COUNTER), please change to button. 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 Start: 12-05-2023 BP Controlled (<130/80) BP Controlled (<130/80) Kim in Start: 12-03-2023 End: 12-03-2023 Patient encounter procedure 12/03/2023 12:15 PM EDT Office Visit Endocrinology [place] [address] [place] [phone] Silvina Cadena APRN.OPERATIONAL TRAINER [address] [place] [address] Hypoglycemia [E16.2] [facility]in[facility] [place] Comment on above: Hypoglycemia [E16.2] Start: 12-02-2023 End: 12-02-2023 ambulatory 12/02/2023 3:20 PM EDT [facility] Endocrinology [address] [place] [address] Ronaldo Nichole MD [address] [place], [place] [phone] blood sugar Endocrinology Comment on above: blood sugar Start: 12-02-2023 End: 12-02-2023 Patient encounter procedure 12/02/2023 1:30 PM EDT Office Visit Gastroenterology [address] [address] Chichi Miller MD [address] [place] [address] Multiple gastric ulcers [K25.9] Gastroenterology Comment on above: Multiple gastric ulcers [K25.9] Start: 11-27-2023 BP Controlled (<130/80) BP Controlled (<130/80) [facility] Start: 11-23-2023 End: 11-23-2023 ambulatory 11/23/2023 3:00 PM EDT Infusion Center Hematology/Oncology [address] [facility] [address] INJECTAFER Hematology/Oncology Comment on above: INJECTAFER Start: 11-17-2023 End: 11-17-2023 Patient encounter procedure 11/17/2023 11:30 AM EDT Office Visit Pain Management [address] [place] [address] [address] Vic Ramos MD [address] [place] [address] [place] [address] follow up Pain Management Comment on above: follow up Start: 11-17-2023 End: 11-17-2023 Patient encounter procedure Gastroenterology Comment on above: FOLLOW UP Hypoglycemia and Adr enal Issues Start: 11-16-2023 End: 11-16-2023 ambulatory 11/16/2023 3:00 PM EDT [facility] Hematology/Oncology [address] [place] [address] INJECTAFER Hematology/Oncology Comment on above: INJECTAFER Start: 11-15-2023 End: 11-15-2023 ambulatory 11/15/2023 1:00 PM EDT [facility] Neurology [address] [facility] [address] [place] [address] Pablo Lebron, PSYD [address] [place], [place] [id number] Depression, Anxiety Neurology Comment on above: Depression, Anxiety Start: 11-10-2023 End: 11-10-2023 Patient encounter procedure 11/10/2023 1:40 PM EDT Appointment Radiology [address] [place] [address] Abnormal defecation [R19.8] Radiology Comment on above: Abnormal defecation [R19.8] Start: 11-10-2023 End: 11-10-2023 Admission to same day surgery center 11/10/2023 11:20 AM EDT [facility] Surgery [address] [place] [address] [place] [address] [place] [address] Virtual Post op LX Diagnostic 10/07/2023 1 mo F/u General Surgery Comment on above: Virtual Post op LX Diagnostic 10/07/2023 1 mo F/u Start: 11-10-2023 End: 11-10-2023 Patient encounter procedure Gastroenterology Comment on above: FOLLOW UP Post op LX Diagnosti c 10/07/2023 1 mo F/u Start: 11-08-2023 End: 11-08-2023 Admission to same day surgery [facility] Comment on above: post op one month/ dx lap 10/07/2023 Post Op: One month- dx lap 10/06 Start: 11-04-2023 End: 11-04-2023 Follow-up encounter 11/04/2023 5:30 PM EDT [facility] [address] [place] [address] [place] [address] Vic Ramos MD [address] [place] [address] [place] [address] follow up Pain Management Comment on above: follow up Start: 11-01-2023 End: 11-01-2023 Patient encounter procedure 11/01/2023 8:00 AM EDT Appointment Gastroenterology [address] [address] Chichi Miller MD [address] [place], [place] [phone] Multiple gastric ulcers [K25.9] Gastroenterology Comment on above: Multiple gastric ulcers [K25.9] Start: 10-28-2023 End: 10-28-2023 Follow-up encounter 10/28/2023 4:15 PM EDT [facility] [address] [place] [address] [place] [address] Vic Ramos MD [address] [place] [address] [place] [address] follow up Pain Management Comment on above: follow up Start: 10-27-2023 Thyroid stimulating hormone measurement TSH Level [facility] Start: 10-21-2023 End: 10-21-2023 Patient encounter procedure 10/21/2023 2:00 PM EDT Office Visit Allergy [address] [place] [address] Sara Velasquez MD [address] [place], [place] [id number] Facial swelling [R22.0] Allergy Comment on above: Facial swelling [R22.0] Start: 10-20-2023 End: 10-20-2023 Admission to same day surgery center 10/20/2023 2:45 PM EDT - 10/20/2023 4:45 PM EDT Surgery [facility] Operating Room [address] [place] [address] [place] [address] [place] [address] LAPAROSCOPY DIAGNOSTIC [facility] Operating Room Comment on above: LAPAROSCOPY DIAGNOSTIC Start: 10-20-2023 End: 10-20-2023 Laps abd prtm&omentum dx w/wo spec br/wa spx LAPAROSCOPY DIAGNOSTIC Chronic abdominal pain History of gastric bypass Pre-op testing 10/20/2023 2:45 PM EDT [facility] OR Start: 10-20-2023 Subsequent hospital visit by physician 10/20/2023 2:45 PM EDT Hospital Encounter [facility] Operating Room [address] [place] [address] [place] [id number] [place] [address] Chronic abdominal pain [R10.9, G89.29], History of gastric bypass [Z98.84], Pre-op testing [Z01.818] [facility] Operating Room Comment on above: Chronic abdominal pain [R10.9, G89.29], History of gastric bypass [Z98.84], Pre-op testing [Z01.818] Start: 10-20-2023 End: 10-20-2023 Patient encounter procedure 10/20/2023 8:20 AM EDT Office Visit General Surgery [address] [facility] [address] [place] [address] Breanna Stern, PAPER SORTER AND COUNTER.OPERATIONAL TRAINER [address] [place] [address] post op 2-3 wks/ dx lap 10/07/2023 General Surgery Comment on above: post op 2-3 wks/ dx lap 10/07/2023 Start: 10-17-2023 Covid-19 Vaccine ( season) Covid-19 Vaccine ( season) [facility] Start: 10-17-2023 Covid-19 Vaccine ( season) Covid-19 Vaccine ( season) [facility] Start: 10-17-2023 Influenza vaccination Influenza Vaccine (#1) [facility] Start: 10-15-2023 End: 10-15-2023 Admission to same day surgery center 10/15/2023 11:36 AM EDT - 10/15/2023 1:16 PM EDT Surgery Angio [address] [place] [address] 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 [address] [place] [address] INSERTION TUNNELED CV CATHETER Angio Comment on above: INSERTION TUNNELED CV CATHETER Start: 10-15-2023 End: 10-15-2023 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/> [facility] ANGIO HB6 Start: 10-15-2023 Subsequent hospital visit by physician 10/15/2023 11:36 AM EDT Hospital Encounter Angio [address] [place] [address] 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 [address] [place] [address] On total parenteral nutrition (TPN) [Z78.9] Angio Comment on above: On total parenteral nutrition (TPN) [Z78 .9] Start: 10-13-2023 End: 10-13-2023 Patient encounter procedure Gastroenterology Comment on above: cgrt page [id number] Start: 10-13-2023 End: 10-13-2023 ambulatory 10/13/2023 12:00 PM EDT Education Gastroenterology [address] [id number] Dietitian, Cgrt [address] [place] [address] cgrt page [id number] Gastroenterology Comment on above: cgrt page [id number] Start: 10-07-2023 End: 10-07-2023 Admission to same day surgery center 10/07/2023 7:30 AM EDT - 10/07/2023 9:15 AM EDT Surgery [facility] Operating Room [address] [place] [address] [place] [address] [place] [address] LAPAROSCOPY DIAGNOSTIC [facility] Operating Room Comment on above: LAPAROSCOPY DIAGNOSTIC Start: 10-07-2023 End: 10-07-2023 Anesthesia consultation 10/07/2023 7:30 AM EDT Anesthesia Event [facility] Operating Room [address] [place] [address] Nathalie Preciado APRN.OUTSIDE LABORER [address] [place] [address] [facility] Operating Room Start: 10-07-2023 End: 10-07-2023 Laps abd prtm&omentum dx w/wo spec br/wa spx LAPAROSCOPY DIAGNOSTIC Chronic abdominal pain History of gastric bypass Pre-op testing 10/07/2023 7:30 AM EDT [facility] OR Start: 10-07-2023 Subsequent hospital visit by physician 10/07/2023 7:30 AM EDT Hospital Encounter [facility] Operating Room [address] [place] [address] [place] [address] [place] [address] Chronic abdominal pain [R10.9, G89.29], History of gastric bypass [Z98.84], Pre-op testing [Z01.818] [facility] Operating Room Comment on above: Chronic abdominal pain [R10.9, G89.29], History of gastric bypass [Z98.84], Pre-op testing [Z01.818] Start: 10-06-2023 End: 10-06-2023 Anesthesia consultation 10/06/2023 3:40 PM EDT PAT Pre Anesthesia [address] [place] [address] PACC//preop//lap diagnostic//Gutleandro// Pre Anesthesia Comment on above: PACC//preop//lap diagnostic//Gutnick// Start: 09-30-2023 End: 09-30-2023 Patient encounter procedure 09/30/2023 2:00 PM EDT Office Visit Allergy [address] [place] [phone] Sara Velasquez MD [address] [place], [place] [phone] Facial swelling [R22.0] Allergy Comment on above: Facial swelling [R22.0] Start: 09-27-2023 End: 09-27-2023 Patient encounter procedure 09/27/2023 3:00 PM EDT Office [place] [address] surgical reg//preop//lap diagnostic//Gutnick// [employer] Comment on above: surgical reg//preop//lap diagnostic//Gut leandro//10/20/2023 Start: 09-22-2023 End: 09-22-2023 Patient encounter procedure 09/22/2023 9:40 AM EDT Office Visit Dermatology [address] [address] Samara Evans MD [address] [place] [address] new tiny black spots on hand & arm Dermatology Comment on above: new tiny black spots on hand & arm Start: 09-09-2023 End: 09-09-2023 Patient encounter procedure 09/09/2023 2:00 PM EDT Office Visit Allergy [address] [place] [phone] Sara Velasquez MD [address] [place] [address] Facial swelling [R22.0] Allergy Comment on above: Facial swelling [R22.0] Start: 09-08-2023 End: 09-08-2023 Patient encounter procedure 09/08/2023 10:40 AM EDT Office Visit Gastroenterology [address] [address] Kasie Avalos MD [address] [facility] [place] [address] 3 month f/u Gastroenterology Comment on above: 3 month f/u Start: 09-03-2023 End: 09-03-2023 Patient encounter procedure 09/03/2023 12:45 PM EDT Office Visit Pulmonary Medicine [address] [facility] [address] Alan Jurado MD [address] [facility] [address] Follow-up of left lower lobe pneumonia Pulmonary Medicine Comment on above: Follow-up of left lower lobe pneumonia Start: 08-30-2023 End: 08-30-2023 Nursing evaluation of patient and report Gastroenterology Comment on above: Gastroesophageal reflux disease, unspeci fied whether esophagitis present [K21.9] Start: 08-26-2023 End: 08-26-2023 Nursing evaluation of patient and report 08/26/2023 3:00 PM EDT Nurse Visit Gastroenterology [address] [address] 2, Nurse Gi Lab [address] [place] [address] Gastroesophageal reflux disease, unspecified whether esophagitis present [K21.9] Gastroenterology Comment on above: Gastroesophageal reflux disease, unspeci fied whether esophagitis present [K21.9] Start: 08-26-2023 End: 08-26-2023 Patient encounter procedure 08/26/2023 3:00 PM EDT Appointment Gastroenterology [address] [place] [phone] [place] [address] [place] [address] Gastroesophageal reflux disease, unspecified whether esophagitis present [K21.9] Gastroenterology Comment on above: Gastroesophageal reflux disease, unspeci fied whether esophagitis present [K21.9] Start: 08-09-2023 End: 08-09-2023 Patient encounter procedure 08/09/2023 2:00 PM EDT Office Visit Pain Management [address] [address] Vic Ramos MD [address] [facility] [address] follow up Pain Management Comment on above: follow up Start: 08-09-2023 End: 08-09-2023 Follow-up encounter 08/09/2023 9:00 AM EDT [facility] Neurology [address] [place] [address] Pablo Lebron, PSYD [address] [place] [address] follow up Neurology Comment on above: follow up Start: 08-04-2023 End: 08-04-2023 Patient encounter procedure 08/04/2023 9:00 AM EDT Office Visit Pain Management [address] [place] [address] oBogie Murguia MD [address] [place] [address] medication refill (ketamine) Pain Management Comment on above: medication refill (ketamine) Start: 07-28-2023 End: 07-28-2023 Patient encounter procedure 07/28/2023 10:00 AM EDT Office Visit Gastroenterology [address] [address] Kasie Avalos MD [address] [place], [place] [phone] 3 month f/u Gastroenterology Comment on above: 3 month f/u Start: 07-22-2023 End: 07-22-2023 Patient encounter procedure 07/22/2023 9:30 AM EDT Office Visit Colorectal Surgery [address] [address] La Montes De Oca APRN.OPERATIONAL TRAINER [address] [place] [address] Constipation, unspecified constipation type [K59.00] Colorectal Surgery Comment on above: Constipation, unspecified constipation t ype [K59.00] Start: 07-22-2023 End: 07-22-2023 Admission to same day surgery center 07/22/2023 9:00 AM EDT Procedure Colorectal Surgery [address] [address] La Montes De Oca APRN.OPERATIONAL TRAINER [address] [place] [address] Constipation, unspecified constipation type [K59.00] Colorectal Surgery Comment on above: Constipation, unspecified constipation t ype [K59.00] Start: 07-22-2023 End: 07-22-2023 Nursing evaluation of patient and report 07/22/2023 8:00 AM EDT Nurse Visit Gastroenterology [address] [address] Lab, Nurse Gi I [address] [place] [address] Gastroesophageal reflux disease, unspecified whether esophagitis present [K21.9] Gastroenterology Comment on above: Gastroesophageal reflux disease, unspeci fied whether esophagitis present [K21.9] Start: 07-20-2023 End: 07-20-2023 Professional / ancillary services management 07/20/2023 2:00 PM EDT Ancillary Procedure [facility] [address] [address] [address] [facility] Start: 07-20-2023 End: 07-20-2023 Nursing evaluation of patient and report 07/20/2023 1:30 PM EDT Nurse Visit Gastroenterology [address] [address] Lab, Nurse Gi I [address] [place] [address] Gastroesophageal reflux disease, unspecified whether esophagitis present [K21.9] Gastroenterology Comment on above: Gastroesophageal reflux disease, unspeci fied whether esophagitis present [K21.9] Start: 07-20-2023 End: 07-20-2023 Patient encounter procedure Gastroenterology Comment on above: Gastroesophageal reflux disease, unspeci fied whether esophagitis present [K21.9] Start: 07-17-2023 [facility] Start: 07-17-2023 Referral to general surgeon [facility] Start: 07-17-2023 Hospital admission [facility] Start: 07-15-2023 End: 07-15-2023 Patient encounter procedure 07/15/2023 3:15 PM EDT Office Visit Pain Management [address] [place] [address] Vic Ramos MD [address] [facility] [place] [address] est Pain Management Comment on above: est Start: 07-15-2023 End: 07-15-2023 Patient encounter procedure 07/15/2023 7:30 AM EDT Office Visit Pain Management [address] [place] [address] May [place] APRN.OPERATIONAL TRAINER [address] [place] [address] Needs medication, unknown who can order Pain Management Comment on above: Needs medication, unknown who can order Start: 07-09-2023 End: 07-09-2023 Follow-up encounter 07/09/2023 9:00 AM EDT [facility] Neurology [address] [facility] [address] [place] [address] Pablo Lebron, [facility] [address] [place], [place] [phone] follow up Neurology Comment on above: follow up Start: 07-07-2023 End: 07-07-2023 Patient encounter procedure 07/07/2023 10:30 AM EDT Office Visit Colorectal Surgery [address] [address] Vonda Hercules PA-C [address] [place] [address] Constipation, unspecified constipation type [K59.00] Colorectal Surgery Comment on above: Constipation, unspecified constipation t ype [K59.00] Start: 07-07-2023 End: 07-07-2023 Admission to same day surgery center 07/07/2023 10:00 AM EDT Procedure Colorectal Surgery [address] [address] Vonda Hercules PA-C [address] [place] [address] Constipation, unspecified constipation type [K59.00] Colorectal Surgery Comment on above: Constipation, unspecified constipation t ype [K59.00] Start: 06-23-2023 End: 06-23-2023 Patient encounter procedure 06/23/2023 9:00 AM EDT Office Visit Plastic Surgery [address] [address] Juana Padilla APRN.OPERATIONAL TRAINER [address] [place] [address] CONSULT FOR SKIN REMOVAL WEIGHT LOSS SURGERY PROVIDER LISSET KAT [facility] 01/2022 @ [facility] Plastic Surgery Comment on above: CONSULT FOR SKIN REMOVAL WEIGHT LOSS RED [place] PROVIDER LISSET KAT [facility] 01/2022 @ [facility] Start: 06-18-2023 End: 06-18-2023 Follow-up encounter 06/18/2023 4:00 PM EDT [facility] [address] [place] [address] Vic Ramos MD [address] [facility] [address] Hospital Follow Up chronic pain Pain Management Comment on above: Hospital Follow Up chronic pain Start: 06-18-2023 End: 06-18-2023 Patient encounter procedure 06/18/2023 10:00 AM EDT Office Visit General Surgery [address] [address] [address] Breanna Stern APRN.OPERATIONAL TRAINER [address] [place] [address] Post PEG-J placement General Surgery Comment on above: Post PEG-J placement Start: 06-15-2023 End: 06-15-2023 Patient encounter procedure 06/15/2023 11:00 AM EDT Office Visit General Surgery [address] [place] [address] Breanna Stern APRN.OPERATIONAL TRAINER [address] [place] [address] Post PEG-J placement General Surgery Comment on above: Post PEG-J placement Start: 06-13-2023 BP CONTROLLED (<130/80) BP CONTROLLED (<130/80) [facility] Start: 05-30-2023 Bacteria identified in Urine by Culture [facility] Start: 04-12-2023 End: 04-12-2023 Telemedicine consultation with patient 04/12/2023 9:00 AM EST Telemedicine [facility] [address] [address] [place] [address] [place] [address] [place] [address] [facility] Start: 11-23-2022 End: 11-24-2023 US MESENTERIC ARTERY CMPLT VAS LAB US MESENTERIC ARTERY CMPLT VAS LAB Vascular Lab TOÑITO Chronic nausea RUQ pain Expected: 11/23/2022, Expires: 11/24/2023 [facility] Work Phone: Comment on above: Expected: 11/23/2022, Expires: Start: 11-18-2022 End: 01-18-2023 25-hydroxyvitamin D3 [Mass/volume] in Serum or Plasma VITAMIN D 25 HYDROXY Lab Routine S/P bariatric surgery Impaired intestinal absorption Expected: 11/18/2022 (Approximate), Expires: 01/18/2023 [facility] Work Phone: Comment on above: Expected: 11/18/2022 (Approximate), Expi res: 01/18/2023 Start: 11-18-2022 End: 01-18-2023 CBC panel - Blood by Automated count CBC Lab Routine S/P bariatric surgery Impaired intestinal absorption Expected: 11/18/2022 (Approximate), Expires: 01/18/2023 [facility] Work Phone: Comment on above: Expected: 11/18/2022 (Approximate), Expi res: 01/18/2023 Start: 11-18-2022 End: 01-18-2023 Cobalamin (Vitamin B12) [Mass/volume] in Serum or Plasma VITAMIN B12 BLOOD Lab Routine S/P bariatric surgery Impaired intestinal absorption Expected: 11/18/2022 (Approximate), Expires: 01/18/2023 [facility] Work Phone: Comment on above: Expected: 11/18/2022 (Approximate), Expi res: 01/18/2023 Start: 11-18-2022 End: 01-18-2023 Comprehensive metabolic 2000 panel - Serum or Plasma COMP METABOLIC PANEL Lab Routine S/P bariatric surgery Impaired intestinal absorption Expected: 11/18/2022 (Approximate), Expires: 01/18/2023 [facility] Work Phone: Comment on above: Expected: 11/18/2022 (Approximate), Expi res: 01/18/2023 Start: 11-18-2022 End: 01-18-2023 Ferritin [Mass/volume] in Serum or Plasma FERRITIN BLD Lab Routine S/P bariatric surgery Impaired intestinal absorption Expected: 11/18/2022 (Approximate), Expires: 01/18/2023 [facility] Work Phone: Comment on above: Expected: 11/18/2022 (Approximate), Expi res: 01/18/2023 Start: 11-18-2022 End: 01-18-2023 Folate [Mass/volume] in Serum or Plasma FOLATE SERUM Lab Routine S/P bariatric surgery Impaired intestinal absorption Expected: 11/18/2022 (Approximate), Expires: 01/18/2023 [facility] Work Phone: Comment on above: Expected: 11/18/2022 (Approximate), Expi res: 01/18/2023 Start: 11-18-2022 End: 01-18-2023 Iron and Iron binding capacity panel - Serum or Plasma IRON + TIBC Lab Routine S/P bariatric surgery Impaired intestinal absorption Expected: 11/18/2022 (Approximate), Expires: 01/18/2023 [facility] Work Phone: Comment on above: Expected: 11/18/2022 (Approximate), Expi res: 01/18/2023 Start: 11-18-2022 End: 01-18-2023 Parathyrin.intact [Mass/volume] in Serum or Plasma PTH INTACT BLD Lab Routine S/P bariatric surgery Impaired intestinal absorption Expected: 11/18/2022 (Approximate), Expires: 01/18/2023 [facility] Work Phone: Comment on above: Expected: 11/18/2022 (Approximate), Expi res: 01/18/2023 Start: 11-18-2022 End: 01-18-2023 Retinol [Mass/volume] in Serum or Plasma VITAMIN A/RETINOL Lab Routine S/P bariatric surgery Impaired intestinal absorption Expected: 11/18/2022 (Approximate), Expires: 01/18/2023 [facility] Work Phone: Comment on above: Expected: 11/18/2022 (Approximate), Expi res: 01/18/2023 Start: 11-18-2022 End: 01-18-2023 VITAMIN B1 (THIAMINE), WHOLE BLOOD VITAMIN B1 (THIAMINE), WHOLE BLOOD Lab Routine S/P bariatric surgery Impaired intestinal absorption Expected: 11/18/2022 (Approximate), Expires: 01/18/2023 [facility] Work Phone: Comment on above: Expected: 11/18/2022 (Approximate), Expi res: 01/18/2023 Start: 11-18-2022 End: 01-18-2023 Zinc [Mass/volume] in Serum or Plasma ZINC BLD Lab Routine S/P bariatric surgery Impaired intestinal absorption Expected: 11/18/2022 (Approximate), Expires: 01/18/2023 [facility] Work Phone: Comment on above: Expected: 11/18/2022 (Approximate), Expi res: 01/18/2023 Start: 11-04-2022 End: 01-04-2023 Amylase [Enzymatic activity/volume] in Serum or Plasma [facility] Work Phone: Comment on above: Expected: 11/04/2022, Expires: 3 Start: 11-04-2022 End: 01-04-2023 Lipase [Enzymatic activity/volume] in Serum or Plasma [facility] Work Phone: Comment on above: Expected: 11/04/2022, Expires: 3 Start: 10-16-2022 Covid-19 Vaccine () Covid-19 Vaccine () [facility] Start: 10-16-2022 Influenza vaccination [facility] Start: 09-15-2022 Influenza vaccination Flu vaccine (#1) [facility] Start: 07-28-2022 End: 09-27-2022 CBC W Auto Differential panel - Blood CBC + DIFF Lab Routine Rash and nonspecific skin eruption Expected: 07/28/2022, Expires: 09/27/2022 [facility] Work Phone: Comment on above: Expected: 07/28/2022, Expires: 3 Start: 07-28-2022 End: 09-27-2022 Comprehensive metabolic 2000 panel - Serum or Plasma COMP METABOLIC PANEL Lab Routine Rash and nonspecific skin eruption Facial edema Expected: 07/28/2022, Expires: 09/27/2022 [facility] Work Phone: Comment on above: Expected: 07/28/2022, Expires: 3 Start: 06-12-2022 End: 08-12-2022 MISAEL BY IFA WITH REFLEX [facility] Work Phone: Comment on above: Expected: 06/12/2022, Expires: 3 Start: 06-12-2022 End: 08-12-2022 Borrelia burgdorferi IgG and IgM panel - Serum [facility] Work Phone: Comment on above: Expected: 06/12/2022, Expires: 3 Start: 06-12-2022 End: 08-12-2022 Cyclic citrullinated peptide IgG Ab [Units/volume] in Serum or Plasma [facility] Work Phone: Comment on above: Expected: 06/12/2022, Expires: Start: 06-12-2022 End: 08-12-2022 MONOCLONAL PROTEIN, SERUM (BLOOD) [facility] Work Phone: Comment on above: Expected: 06/12/2022, Expires: Start: 06-12-2022 End: 08-12-2022 Niacin [Mass/volume] in Serum or Plasma [facility] Work Phone: Comment on above: Expected: 06/12/2022, Expires: Start: 06-12-2022 End: 08-12-2022 PROTEIN ELECTROPHORESIS SERUM W/INTERP [facility] Work Phone: Comment on above: Expected: 06/12/2022, Expires: Start: 06-12-2022 End: 08-12-2022 Pyridoxine [Mass/volume] in Serum or Plasma [facility] Work Phone: Comment on above: Expected: 06/12/2022, Expires: Start: 06-12-2022 End: 08-12-2022 VITAMIN B1 (THIAMINE), WHOLE BLOOD [facility] Work Phone: Comment on above: Expected: 06/12/2022, Expires: 3 Start: 05-03-2022 End: 07-03-2022 25-hydroxyvitamin D3 [Mass/volume] in Serum or Plasma VITAMIN D 25 HYDROXY Lab Routine S/P gastric bypass Postoperative malabsorption Expected: 05/03/2022 (Approximate), Expires: 07/03/2022 [facility] Work Phone: Comment on above: Expected: 05/03/2022 (Approximate), Expi res: 07/03/2022 Start: 05-03-2022 End: 07-03-2022 CBC panel - Blood by Automated count CBC Lab Routine S/P gastric bypass Postoperative malabsorption Expected: 05/03/2022 (Approximate), Expires: 07/03/2022 [facility] Work Phone: Comment on above: Expected: 05/03/2022 (Approximate), Expi res: 07/03/2022 Start: 05-03-2022 End: 07-03-2022 Cobalamin (Vitamin B12) [Mass/volume] in Serum or Plasma VITAMIN B12 BLOOD Lab Routine S/P gastric bypass Postoperative malabsorption Expected: 05/03/2022 (Approximate), Expires: 07/03/2022 [facility] Work Phone: Comment on above: Expected: 05/03/2022 (Approximate), Expi res: 07/03/2022 Start: 05-03-2022 End: 07-03-2022 Comprehensive metabolic 2000 panel - Serum or Plasma COMP METABOLIC PANEL Lab Routine S/P gastric bypass Postoperative malabsorption Expected: 05/03/2022 (Approximate), Expires: 07/03/2022 [facility] Work Phone: Comment on above: Expected: 05/03/2022 (Approximate), Expi res: 07/03/2022 Start: 05-03-2022 End: 07-03-2022 Ferritin [Mass/volume] in Serum or Plasma FERRITIN BLD Lab Routine S/P gastric bypass Postoperative malabsorption Expected: 05/03/2022 (Approximate), Expires: 07/03/2022 [facility] Work Phone: Comment on above: Expected: 05/03/2022 (Approximate), Expi res: 07/03/2022 Start: 05-03-2022 End: 07-03-2022 Folate [Mass/volume] in Serum or Plasma FOLATE SERUM Lab Routine S/P gastric bypass Postoperative malabsorption Expected: 05/03/2022 (Approximate), Expires: 07/03/2022 [facility] Work Phone: Comment on above: Expected: 05/03/2022 (Approximate), Expi res: 07/03/2022 Start: 05-03-2022 End: 07-03-2022 Iron and Iron binding capacity panel - Serum or Plasma IRON + TIBC Lab Routine S/P gastric bypass Postoperative malabsorption Expected: 05/03/2022 (Approximate), Expires: 07/03/2022 [facility] Work Phone: Comment on above: Expected: 05/03/2022 (Approximate), Expi res: 07/03/2022 Start: 05-03-2022 End: 07-03-2022 Parathyrin.intact [Mass/volume] in Serum or Plasma PTH INTACT BLD Lab Routine S/P gastric bypass Postoperative malabsorption Expected: 05/03/2022 (Approximate), Expires: 07/03/2022 [facility] Work Phone: Comment on above: Expected: 05/03/2022 (Approximate), Expi res: 07/03/2022 Start: 05-03-2022 End: 07-03-2022 Thyrotropin [Units/volume] in Serum or Plasma TSH BLD Lab Routine S/P gastric bypass Postoperative malabsorption Expected: 05/03/2022 (Approximate), Expires: 07/03/2022 [facility] Work Phone: Comment on above: Expected: 05/03/2022 (Approximate), Expi res: 07/03/2022 Start: 05-03-2022 End: 07-03-2022 VITAMIN B1 (THIAMINE), WHOLE BLOOD VITAMIN B1 (THIAMINE), WHOLE BLOOD Lab Routine S/P gastric bypass Postoperative malabsorption Expected: 05/03/2022 (Approximate), Expires: 07/03/2022 [facility] Work Phone: Comment on above: Expected: 05/03/2022 (Approximate), Expi res: 07/03/2022 Start: 12-25-2021 End: 12-17-2022 PH HUERTA INSERT OFF MEDS PH HUERTA INSERT OFF MEDS Endoscopy Routine Regurgitation of food Gastroesophageal reflux disease, unspecified whether esophagitis present Expected: 12/25/2021, Expires: 12/17/2022 [facility] Work Phone: Comment on above: Expected: 12/25/2021, Expires: Start: 10-16-2021 Influenza vaccination [facility] Start: 10-09-2021 End: 12-09-2021 25-hydroxyvitamin D3 [Mass/volume] in Serum or Plasma VITAMIN D 25 HYDROXY Lab Routine S/P laparoscopic sleeve gastrectomy Expected: 10/09/2021, Expires: 12/09/2021 [facility] Work Phone: Comment on above: Expected: 10/09/2021, Expires: 2 Start: 10-09-2021 End: 12-09-2021 Cobalamin (Vitamin B12) [Mass/volume] in Serum or Plasma VITAMIN B12 BLOOD Lab Routine S/P laparoscopic sleeve gastrectomy Expected: 10/09/2021, Expires: 12/09/2021 [facility] Work Phone: Comment on above: Expected: 10/09/2021, Expires: 2 Start: 10-09-2021 End: 12-09-2021 Ferritin [Mass/volume] in Serum or Plasma FERRITIN BLD Lab Routine S/P laparoscopic sleeve gastrectomy Expected: 10/09/2021, Expires: 12/09/2021 [facility] Work Phone: Comment on above: Expected: 10/09/2021, Expires: 2 Start: 10-09-2021 End: 12-09-2021 Folate [Mass/volume] in Serum or Plasma FOLATE SERUM Lab Routine S/P laparoscopic sleeve gastrectomy Expected: 10/09/2021, Expires: 12/09/2021 [facility] Work Phone: Comment on above: Expected: 10/09/2021, Expires: 2 Start: 10-09-2021 End: 12-09-2021 Hemoglobin A1c in Blood HGB A1C Lab Routine S/P laparoscopic sleeve gastrectomy Expected: 10/09/2021, Expires: 12/09/2021 [facility] Work Phone: Comment on above: Expected: 10/09/2021, Expires: 2 Start: 10-09-2021 End: 12-09-2021 Iron and Iron binding capacity panel - Serum or Plasma IRON + TIBC Lab Routine S/P laparoscopic sleeve gastrectomy Expected: 10/09/2021, Expires: 12/09/2021 [facility] Work Phone: Comment on above: Expected: 10/09/2021, Expires: 2 Start: 10-09-2021 End: 12-09-2021 Lipid 1996 panel - Serum or Plasma LIPID PANEL BASIC Lab Routine S/P laparoscopic sleeve gastrectomy Expected: 10/09/2021, Expires: 12/09/2021 [facility] Work Phone: Comment on above: Expected: 10/09/2021, Expires: 2 Start: 10-09-2021 End: 12-09-2021 Parathyrin.intact [Mass/volume] in Serum or Plasma PTH INTACT BLD Lab Routine S/P laparoscopic sleeve gastrectomy Expected: 10/09/2021, Expires: 12/09/2021 [facility] Work Phone: Comment on above: Expected: 10/09/2021, Expires: 2 Start: 10-09-2021 End: 12-09-2021 Thyrotropin [Units/volume] in Serum or Plasma TSH BLD Lab Routine S/P laparoscopic sleeve gastrectomy Expected: 10/09/2021, Expires: 12/09/2021 [facility] Work Phone: Comment on above: Expected: 10/09/2021, Expires: 2 Start: 10-09-2021 End: 12-09-2021 VITAMIN B1 (THIAMINE), WHOLE BLOOD VITAMIN B1 (THIAMINE), WHOLE BLOOD Lab Routine S/P laparoscopic sleeve gastrectomy Expected: 10/09/2021, Expires: 12/09/2021 [facility] Work Phone: Comment on above: Expected: 10/09/2021, Expires: 2 Start: 06-23-2021 End: 06-23-2021 Patient encounter procedure 06/23/2021 Office Visit Sports Medicine Belen Stovall MD [id number] [place] [phone] [facility] [place] Start: 04-15-2021 COVID-19 VACCINE (3 - Booster for Woo series) COVID-19 VACCINE (3 - Booster for Woo series) [facility] Start: 10-16-2020 Influenza vaccination [employer] [facility] Start: 10-17-2019 Influenza vaccination INFLUENZA VACCINE (#1) [employer] [facility] Start: 2019 HPV TESTING HPV TESTING [facility] Start: 2019 Screening for malignant neoplasm of cervix [facility] Start: 2010 PAP TESTING PAP TESTING [facility] Start: 2010 Screening for malignant neoplasm of cervix [facility] Start: 2008 DTaP/Tdap/Td vaccine (1 - Tdap) DTaP/Tdap/Td vaccine (1 - Tdap) [facility] Work Phone: Start: 2008 Hepatitis A Vaccines (1 of 2 - Risk 2-dose series) Hepatitis A Vaccines (1 of 2 - Risk 2-dose series) [facility] Start: 2008 Hepatitis B Vaccine (1 of 3 - 19+ 3-dose series) Hepatitis B Vaccine (1 of 3 - 19+ 3-dose series) [facility] Start: 2008 Hepatitis B Vaccines (1 of 3 - 19+ 3-dose series) Hepatitis B Vaccines (1 of 3 - 19+ 3-dose series) [facility] Start: 2008 Third diphtheria, tetanus and acellular pertussis (DTaP) vaccination TDAP (ADULT) [facility] Start: 2008 Urine microalbumin profile DTAP,TDAP,TD (1 - Tdap) [facility] Start: 2007 ANNUAL PCP TEAM CHRONIC DISEASE VISIT ANNUAL PCP TEAM CHRONIC DISEASE VISIT [facility] Start: 2007 BP CONTROLLED (<130/80) BP CONTROLLED (<130/80) [facility] Start: 2007 HEPATITIS C SCREENING HEPATITIS C SCREENING [facility] Start: 2007 Hepatitis C screening [facility] Start: 2007 HIV SCREENING HIV SCREENING [facility] Start: 2007 HIV screening HIV Screening [facility] Start: 2007 SPIROMETRY SPIROMETRY [facility] Start: 2007 Tetanus vaccination TETANUS [facility] Start: 2004 HIV screening [facility] Start: 2002 HIV screening HIV SCREENING DISCUSSION [facility] Start: 2002 Varicella vaccination Varicella Vaccines (1 of 2 - 13+ 2-dose series) [facility] Start: 2001 COVID-19 VACCINE (1) COVID-19 VACCINE (1) [email or web address] Start: 2001 Depression Screen Depression Screen [facility] Start: 1995 PNEUMOCOCCAL (1 - PCV) PNEUMOCOCCAL (1 - PCV) [facility] Start: 1995 Pneumococcal vaccination Pneumococcal Vaccine (1 - PCV) [facility] Start: 1995 Pneumococcal Vaccine: Pediatrics (0 to 5 Years) and At-Risk Patients (6 to 64 Years) (1 of 2 - PCV) Pneumococcal Vaccine: Pediatrics (0 to 5 Years) and At-Risk Patients (6 to 64 Years) (1 of 2 - PCV) [facility] Start: 1990 MMR Vaccines (1 of 1 - Standard series) MMR Vaccines (1 of 1 - Standard series) [facility] Start: 1990 Varicella vaccination Varicella Vaccines (1 of 2 - 2-dose childhood series) [facility] Start: 1990 Varicella vaccine (1 of 2 - 2-dose childhood series) Varicella vaccine (1 of 2 - 2-dose childhood series) [facility] Start: 1989 HEPATITIS B (1 of 3 - 3-dose series) HEPATITIS B (1 of 3 - 3-dose series) [facility] Start: 1989 Hepatitis B Vaccine (1 of 3 - 3-dose series) Hepatitis B Vaccine (1 of 3 - 3-dose series) [facility] Start: 1989 Hepatitis B Vaccines (1 of 3 - 3-dose series) Hepatitis B Vaccines (1 of 3 - 3-dose series) [facility] Start: 1989 Hepatitis C antibody, confirmatory test HEPATITIS C VIRUS SCREENING [facility] Start: 1989 Hepatitis C screening [facility] [employer] Start: 1989 HIV screening HIV Screening [facility] Start: 1989 Lipid panel Lipid Panel [facility] Start: 1989 Thyroid stimulating hormone measurement TSH [facility] Start: 1989 TSH Qn TSH [facility] Start: 1989 Yearly Adult Physical Yearly Adult Physical [facility] End: 07-23-2023 ADULT [employer] ADULT [employer] Endoscopy Routine Constipation, unspecified constipation type 1 Occurrences starting 07/22/2022 until 07/23/2023 [facility] Work Phone: Comment on above: 1 Occurrences starting 07/22/2022 until 07/23/2023 End: 10-12-2024 ADULT [place] [employer] ADULT [employer] Endoscopy Routine Abnormal defecation Constipation, unspecified constipation type 1 Occurrences starting 10/13/2023 until 10/12/2024 [facility] Work Phone: Comment on above: 1 Occurrences starting 10/13/2023 until 10/12/2024 End: 03-23-2023 Basic metabolic 2000 panel - Serum or Plasma Basic Metabolic Panel Lab Routine Morning draw (Lab) for 3 Occurrences starting 03/21/2023 until 03/23/2023 [facility] Work Phone: Comment on above: Morning draw (Lab) for 3 Occurrences sta rting 03/21/2023 until 03/23/2023 End: 03-12-2023 CBC panel - Blood by Automated count CBC Lab Routine Morning draw (Lab) for 3 Occurrences starting 03/10/2023 until 03/12/2023, 1 completed [facility] Work Phone: Comment on above: Morning draw (Lab) for 3 Occurrences sta rting 03/10/2023 until 03/12/2023, 1 completed End: 03-23-2023 CBC panel - Blood by Automated count CBC Lab Routine Morning draw (Lab) for 3 Occurrences starting 03/21/2023 until 03/23/2023 [facility] Work Phone: Comment on above: Morning draw (Lab) for 3 Occurrences sta rting 03/21/2023 until 03/23/2023 End: 03-16-2023 CBC W Auto Differential panel - Blood CBC and Auto Differential Lab STAT Once (Lab) for 1 Occurrences starting 03/16/2023 until 03/16/2023 [facility] Work Phone: Comment on above: Once (Lab) for 1 Occurrences starting until 03/16/2023 End: 03-16-2023 Comprehensive metabolic 2000 panel - Serum or Plasma Comprehensive metabolic panel Lab STAT STAT (Lab) for 1 Occurrences starting 03/16/2023 until 03/16/2023 [facility] Work Phone: Comment on above: STAT (Lab) for 1 Occurrences starting until 03/16/2023 End: 01-03-2024 Ct angio abd&plvis cntrst mtrl w/wo cntrst img CTA ABD/PEL W IVCON Radiology Routine Generalized abdominal pain 1 Occurrences starting 12/04/2022 until 01/03/2024 [facility] Work Phone: Comment on above: 1 Occurrences starting 12/04/2022 until 01/03/2024 ECG 12 Lead ECG 12 Lead ECG STAT As needed until discontinued starting 06/29/2023 [facility] Work Phone: Comment on above: As needed until discontinued starting ECG 12 Lead ECG 12 Lead ECG STAT 06/29/2023 8:50 PM EDT [facility] Work Phone: End: 01-28-2023 ECG COMPLETE ECG COMPLETE ECG Routine Pre-op evaluation 1 Occurrences starting 01/28/2022 until 01/28/2023 [facility] Work Phone: Comment on above: 1 Occurrences starting 01/28/2022 until 01/28/2023 End: 11-17-2022 EGD - THERAPEUTIC, EUS, OR TUBE INTERVENTIONS EGD - THERAPEUTIC, EUS, OR TUBE INTERVENTIONS Endoscopy Routine Gastroesophageal reflux disease without esophagitis 1 Occurrences starting 11/17/2021 until 11/17/2022 [facility] Work Phone: Comment on above: 1 Occurrences starting 11/17/2021 until 11/17/2022 End: 03-05-2023 EGD - THERAPEUTIC, EUS, OR TUBE INTERVENTIONS EGD - THERAPEUTIC, EUS, OR TUBE INTERVENTIONS Endoscopy Routine Esophageal dysphagia S/P gastric bypass 1 Occurrences starting 03/05/2022 until 03/05/2023 [facility] Work Phone: Comment on above: 1 Occurrences starting 03/05/2022 until 03/05/2023 End: 04-27-2024 EGD - THERAPEUTIC, EUS, OR TUBE INTERVENTIONS EGD - THERAPEUTIC, EUS, OR TUBE INTERVENTIONS Endoscopy Routine Gastroesophageal reflux disease, unspecified whether esophagitis present 1 Occurrences starting 04/28/2023 until 04/27/2024 [facility] Work Phone: Comment on above: 1 Occurrences starting 04/28/2023 until 04/27/2024 End: 10-09-2022 EGD BARIATRIC EGD BARIATRIC Endoscopy Routine Gastroesophageal reflux disease, unspecified whether esophagitis present Bariatric surgery status Class 1 obesity with serious comorbidity and body mass index (BMI) of 31.0 to 31.9 in adult, unspecified obesity type S/P laparoscopic sleeve gastrectomy 1 Occurrences starting 10/09/2021 until 10/09/2022 [facility] Work Phone: Comment on above: 1 Occurrences starting 10/09/2021 until 10/09/2022 End: 10-21-2023 EGD DIAGNOSTIC EGD DIAGNOSTIC Endoscopy Routine Epigastric pain 1 Occurrences starting 10/20/2022 until 10/21/2023 [facility] Work Phone: Comment on above: 1 Occurrences starting 10/20/2022 until 10/21/2023 End: 09-07-2024 EGD DIAGNOSTIC EGD DIAGNOSTIC Endoscopy Routine Multiple gastric ulcers 1 Occurrences starting 09/08/2023 until 09/07/2024 [facility] Work Phone: Comment on above: 1 Occurrences starting 09/08/2023 until 09/07/2024 Electrocardiogram, 12-lead PRN ACS symptoms Electrocardiogram, 12-lead PRN ACS symptoms ECG Routine As needed until discontinued starting 03/05/2023 [facility] Work Phone: Comment on above: As needed until discontinued starting Electrocardiogram, 12-lead PRN ACS symptoms Electrocardiogram, 12-lead PRN ACS symptoms ECG Routine 03/08/2023 10:45 AM EST [facility] Work Phone: Electrocardiogram, 12-lead PRN ACS symptoms Electrocardiogram, 12-lead PRN ACS symptoms ECG Routine As needed until discontinued starting 03/16/2023 [facility] Work Phone: Comment on above: As needed until discontinued starting Glucose [Mass/volume ] in Serum or Plasma POCT Glucose Point of Care Testing - Docked Device Routine Every 4 hours (Lab) until discontinued starting 03/05/2023, 30 completed [facility] Work Phone: Comment on above: Every 4 hours (Lab) until discontinued s tarting 03/05/2023, 30 completed Helicobacter pylori Ag [Presence] in Stool by Immunoassay HELICOBACTER PYLORI ANTIGEN BY EIA, STOOL Microbiology Routine Multiple gastric ulcers Ordered: 09/08/2023 [facility] Comment on above: Ordered: 09/08/2023 End: 12-04-2023 Hepatobil syst imag inc gb w/pharma intervenj NM HEPATOBILIARY W EF AND/OR RX Radiology Routine Nausea RUQ pain History of cholecystectomy 1 Occurrences starting 11/04/2022 until 12/04/2023 [facility] Work Phone: Comment on above: 1 Occurrences starting 11/04/2022 until 12/04/2023 End: 03-18-2023 Incentive spirometry Instruct Incentive spirometry Instruct Respiratory Care Routine Once for 1 Occurrences starting 03/18/2023 until 03/18/2023 [facility] Work Phone: Comment on above: Once for 1 Occurrences starting 03/18/19 until 03/18/2023 Injx anes celiac ple xus w/wo radiologic monitrng DIAG/THER NRV BLK CELIAC PLEXUS Procedures Routine Chronic pain syndrome Ordered: 01/11/2023 [facility] Work Phone: Comment on above: Ordered: 01/11/2023 IR CENTRAL CATHETER PLACEMENT IR CENTRAL CATHETER PLACEMENT Radiology Routine On total parenteral nutrition (TPN) Ordered: 10/13/2023 [facility] Comment on above: Ordered: 10/13/2023 End: 06-30-2023 Methicillin resistant Staphylococcus aureus [Presence] in Nose by Organism specific culture Staphylococcus Aureus/MRSA Colonization, Culture Microbiology Routine Once (Lab) for 1 Occurrences starting 06/30/2023 until 06/30/2023 [facility] Work Phone: Comment on above: Once (Lab) for 1 Occurrences starting until 06/30/2023 Patient Education [facility] Work Phone: Patient referral [facility] Work Phone: End: 04-27-2024 PH HUETRA INSERT ON MEDS PH HUERTA INSERT ON MEDS Endoscopy Routine Gastroesophageal reflux disease, unspecified whether esophagitis present 1 Occurrences starting 04/28/2023 until 04/27/2024 [facility] Work Phone: Comment on above: 1 Occurrences starting 04/28/2023 until 04/27/2024 End: 11-18-2022 PH IMPEDANCE INSERT OFF MEDS PH IMPEDANCE INSERT OFF MEDS Endoscopy Routine Gastroesophageal reflux disease without esophagitis S/P laparoscopic sleeve gastrectomy 1 Occurrences starting 11/19/2021 until 11/18/2022 [facility] Work Phone: Comment on above: 1 Occurrences starting 11/19/2021 until 11/18/2022 End: 03-05-2023 Pulse oximetry, continuous Pulse oximetry, continuous Respiratory Care Routine Continuous until discontinued starting 03/05/2023 [facility] Work Phone: Comment on above: Continuous until discontinued starting 0 03/05/2023 End: 06-30-2023 Pulse oximetry, continuous Pulse oximetry, continuous Respiratory Care Routine Continuous until discontinued starting 06/30/2023 [facility] Work Phone: Comment on above: Continuous until discontinued starting 0 06/30/2023 End: 10-18-2023 Radiologic exam upr gi trc double contrast study XR UPPER GI ROUTINE DOUBLE CONTRAST/AIR Radiology Routine S/P bariatric surgery Gastroesophageal reflux disease, unspecified whether esophagitis present 1 Occurrences starting 09/18/2022 until 10/18/2023 [facility] Work Phone: Comment on above: 1 Occurrences starting 09/18/2022 until 10/18/2023 End: 11-11-2024 RF Gastrointestinal tract upper Views W water soluble contrast PO XR DEFECOGRAPHY Radiology Timed Abnormal defecation S/P hysterectomy Endometriosis 1 Occurrences starting 10/13/2023 until 11/11/2024 [facility] Comment on above: 1 Occurrences starting 10/13/2023 until 11/11/2024 SURGICAL PATHOLOGY [facility] Work Phone: Comment on above: Release Upon Ordering for 1 Occurrences starting 12/25/2021, 1 completed Surgical pathology study [facility] Work Phone: Comment on above: Release Upon Ordering for 1 Occurrences starting 03/19/2023, 1 completed End: 03-10-2023 Urethral Catheter Removal Urethral Catheter Removal Procedures Routine Once for 1 Occurrences starting 03/10/2023 until 03/10/2023 [facility] Work Phone: Comment on above: Once for 1 Occurrences starting 03/10/19 until 03/10/2023 End: 07-03-2023 Urethral Catheter Removal Urethral Catheter Removal Procedures Routine Once for 1 Occurrences starting 07/03/2023 until 07/03/2023 [facility] Work Phone: Comment on above: Once for 1 Occurrences starting 07/03/19 until 07/03/2023 End: 12-04-2023 US ABD RIGHT UPPER QUADRANT US ABD RIGHT UPPER QUADRANT Radiology Routine Nausea RUQ pain History of cholecystectomy 1 Occurrences starting 11/04/2022 until 12/04/2023 [facility] Work Phone: Comment on above: 1 Occurrences starting 11/04/2022 until 12/04/2023 US ABD RIGHT UPPER QUADRANT US ABD RIGHT UPPER QUADRANT Radiology Routine Nausea RUQ pain History of cholecystectomy 11/04/2022 11:15 AM EDT [facility] Work Phone: End: 11-03-2024 US.doppler Renal vessels - bilateral US RENAL VENOUS [facility] Vascular Lab Routine Nutcracker phenomenon of renal vein 1 Occurrences starting 11/04/2023 until 11/03/2024 [facility] Work Phone: Comment on above: 1 Occurrences starting 11/04/2023 until 11/03/2024 End: 12-04-2023 XR KNEE GENERAL 4V AP BOTH/PA BOTH/LAT/MERC RIGHT XR KNEE GENERAL 4V AP BOTH/PA BOTH/LAT/MERC RIGHT Radiology Routine Right knee pain, unspecified chronicity 1 Occurrences starting 11/04/2022 until 12/04/2023 [facility] Work Phone: Comment on above: 1 Occurrences starting 11/04/2022 until 12/04/[address] [facility] OR [facility] Immunizations Immunization Date Immunization Notes Care Provider Fa cility 11-12-2022 influenza, injectabl e, quadrivalent, preservative free Deacon Kat MD Work Phone: [facility] 11-12-2022 influenza virus vaccine, unspecified formulation Deacon Kat MD Work Phone: [facility] 11-16-2021 influenza virus vaccine, unspecified formulation [facility] 02-18-2021 SARS-CoV-2 (COVID-19 ) mRNA BNT-162b2 vax [facility] Comment on above: Result Comment: 2022: TPVALL 01-01-2021 influenza virus vaccine, unspecified formulation [facility] 01-01-2021 influenza, seasonal, injectable Kuldip Yousif MD Work Phone: [facility] 12-25-2020 influenza virus vaccine, unspecified formulation [facility] 12-25-2020 influenza, injectabl e, quadrivalent, preservative free Kuldip Yousif MD Work Phone: [facility] 06-23-2020 COVID-19 Vaccine Woo - Documentation Purposes Only Shanna June Other [facility] Comment on above: Result Comment: 2022: TPVAL 11-28-2018 influenza, seasonal, injectable Shanna Slade Other [facility] 11-28-2018 influenza virus vaccine, unspecified formulation Agustin Gustafson [facility] 09-21-2016 tetanus toxoid, redu lauren diphtheria toxoid, and acellular pertussis vaccine, adsorbed Kuldip Yousif MD Work Phone: [facility] Payers Date Payer Category Payer Unknown [id number] 2023 Self-pay [id number] 2020 [facility] Health [facility] [id number] 2020-Present [phone] [address] [address] [place] [address] [facility] [id number] 2017 Unknown 2017 Unknown [employer] [id number] 2017-Present [id number] 2000 Private Health Insurance [id number] 1989 Unknown [id number] 594 1989 Unknown [id number]. 594 1989 Unknown [id number]. 593 1989 Unknown [id number]. 593 1989 Unknown [id number]. 593 1989 Unknown [id number]. 593 1989 Unknown [id number]. 593 1989 Unknown [id number] [id number]. 593 1989 Unknown [id number] [id number]. 593 1989 Unknown [id number] [id number]. 593 1989 Unknown [id number] [id number]. 593 1989 Unknown [id number] 2.16.840.1.814691.3.579.2. 593 1989 Unknown [id number] 2.16.840.1.199030.3.579.2. 593 1989 Unknown [id number] 2.16.840.1.522641.3.579.2. 593 1989 Unknown [id number] 2.16.840.1.342985.3.579.2. 173 1989 Unknown [id number] 2.16.840.1.975669.3.579.2. 173 1989 Unknown [id number] 2.16.840.1.243580.3.579.2. 173 1989 Unknown [id number] 2.16.840.1.738264.3.579.2. 983 1989 Unknown [id number] 2.16.840.1.911356.3.579.2. 196 1989 Unknown [id number] 2.16.840.1.972876.3.579.2. 182 1989 Unknown [id number] 2.16.840.1.235763.3.579.2. 182 1989 Unknown [id number] 2.16.840.1.667716.3.579.2. 1243 1989 Unknown [id number] 2.16.840.1.292614.3.579.2. 1245 1989 Unknown [id number] 2.16.840.1.651378.3.579.2. 1259 1989 Unknown [id number] 2.16.840.1.251583.3.579.2. 1259 1989 Unknown [id number] 2.16.840.1.427832.3.579.2. 1259 1989 Unknown [id number] 2.16.840.1.122750.3.579.2. 1259 1989 Unknown [id number] 2.16.840.1.779094.3.579.2. 9 1989 Unknown [id number] 2.16.840.1.931657.3.579.2. 9 1989 Unknown [id number] 2.16.840.1.713258.3.579.2. 1258 1989 Unknown [id number] 2.16.840.1.322392.3.579.2. 1258 1989 Unknown [id number] 2.16.840.1.616133.3.579.2. 1258 1989 Unknown [id number] 2.16.840.1.095819.3.579.2. 1989 Unknown [id number] 2.16.840.1.617248.3.579.2 1989 Unknown [id number] 2.16.840.1.910888.3.579.2. 1989 Unknown [id number] 2.16.840.1.527139.3.579.2. 1989 Unknown [id number] 2.16.840.1.828784.3.579.2. 1989 Unknown [id number] 2.16.840.1.694661.3.579.2 1989 Unknown [id number] 2.16.840.1.482642.3.579.2. 1989 Unknown [id number] 2.16.840.1.040838.3.579.2 1989 Unknown [id number] 2.16.840.1.199365.3.579.2. 1989 Unknown [id number] 2.16.840.1.583171.3.579.2 1989 Unknown [id number] 2.16.840.1.550818.3.579.2 1989 Unknown [id number] 2.16.840.1.445859.3.579.2 1989 Unknown [id number] 2.16.840.1.534432.3.579.2 1989 Unknown [id number] 2.16.840.1.233402.3.579.2 1989 Unknown [id number] 2.16.840.1.216558.3.579.2 1989 Unknown [id number] 2.16.840.1.477635.3.579. 1989 Unknown [id number] 2.16.840.1.115080.3.579. 1989 Unknown [id number] 2..840.1.688168.3.579. 1989 Unknown [id number] 2.16.840.1.806601.3.579. 1989 Unknown [id number] 2.16.840.1.658578.3.579. 1989 Unknown [id number] 2.16.840.1.654888.3.579.2 1989 Unknown [id number] 2.16.840.1.740155.3.579.2 1989 Unknown [id number] 2.16.840.1.577284.3.579.2 1989 Unknown [id number] 2.16.840.1.764253.3.579.2 1989 Unknown [id number] 2.16.840.1.835064.3.579.2 1989 Unknown [id number] 2.16.840.1.948975.3.579.2 1989 Unknown [id number] 2.16.840.1.954247.3.579.2. 727 1989 Unknown [id number] 2.16.840.1.467246.3.579.2. 1243 1989 Unknown [id number] 2.16.840.1.620607.3.579.2. 1243 1989 Unknown [id number] 2.16.840.1.458740.3.579.2. 1243 1989 Unknown [id number] 2.16.840.1.651567.3.579.2. 1243 1989 Unknown [id number] 2.16.840.1.024270.3.579.2. 1243 1989 Unknown [id number] 2..840.1.755033.3.579.2. 1243 1989 Unknown [id number] 2..840.1.761956.3.579.2. 1243 1989 Unknown [id number] 2.16.840.1.681944.3.579.2. 1243 1989 Unknown [id number] 2.16.840.1.807810.3.579.2. 1243 1989 Unknown [id number] 2.16.840.1.737271.3.579.2. 1243 1989 Unknown [id number] 2.16.840.1.389274.3.579.2. 1243 1989 Unknown [id number] 2.16.840.1.077610.3.579.2. 1243 1989 Unknown [id number] 2.16.840.1.150854.3.579.2. 1243 1959 Unknown [id number] 1.2.840.140708.1.13.239.2. 7.3.212405.315 1959 Unknown [id number] Unknown [id number] 2.16.840.1.049268.3.579.2. 531 Unknown [id number] 2.16.840.1.931700.3.579.2. 531 Unknown [id number] 2.16.840.1.403916.3.579.2. 531 Unknown [id number] 2.16.840.1.032812.3.579.2. 531 Unknown [id number] 2.16.840.1.953864.3.579.2. 531 Unknown [id number] 2.16.840.1.589333.3.579.2. 531 Unknown [id number] 2.16.840.1.688748.3.579.2. 531 Social History Date Type Detail Facility Start: 01-30-2020 End: 01-28-2022 Tobacco smoking status WYIS Never smoker [facility] Start: 01-30-2020 End: 01-28-2022 Tobacco use and exposure Never used [facility] Start: 01-30-2020 End: 11-02-2022 Alcohol intake Current non-drinker of alcohol (finding) [facility] Start: 1990 Sex Assigned At Not on file A [facility] Start: 06-08-2021 End: 06-29-2023 Exposure to SARS-CoV-2 (event) Not sure [facility] Start: 05-06-2021 End: 11-01-2023 Alcohol intake Ex-drinker (finding) [facility] Start: 10-16-2019 End: 06-20-2022 History SDOH Financial 5 [facility] Start: 10-16-2019 End: 06-20-2022 History SDOH Food Worry 1 [facility] Start: 10-16-2019 End: 06-20-2022 History SDOH Transport Med 2 [facility] Start: 10-15-2019 Education 18 [facility] Start: 06-17-2022 End: 09-18-2022 Sex Assigned At [facility] Start: 10-04-2021 End: 01-01-2022 Exposure to SARS-CoV-2 (event) Unable to assess [facility] Tobacco smoking status Never [facility] Start: 06-17-2022 End: 09-18-2022 History of Social function [facility] Work Phone: (I/We) worried wheth er (my/our) food would run out before (I/we) got money to buy more. Never true [facility] Work Phone: In the past 12 month s, was there a time when you were not able to pay the mortgage or rent on time? No [facility] Work Phone: Do you belong to any clubs or organizations such as bahai groups, unions, fraternal or athletic groups, or school groups? Yes [facility] Are you now , , , , never or living with a partner? [facility] How often to you hav e a drink containing alcohol? Never [facility] How hard is it for y ou to pay for the very basics like food, housing, medical care, and heating Somewhat hard [facility] Do you feel stress - tense, restless, nervous, or anxious, or unable to sleep at night because your mind is troubled all the time - these days [OSQ] To some extent [facility] Start: 11-12-2017 Gender identity Identifies as female gender (finding) [facility] How hard is it for y ou to pay for the very basics like food, housing, medical care, and heating Hard [facility] (I/We) worried wheth er (my/our) food would run out before (I/we) got money to buy more. Sometimes true [facility] Start: 1990 Sex Assigned At Female F [facility] How hard is it for y ou to pay for the very basics like food, housing, medical care, and heating Not very hard [facility] Work Phone: Start: 03-02-2023 Sexual orientation Heterosexual (graham rosado) [facility] Work Phone: Tobacco [facility] Comment on above: denies Tobacco smoking status No Smokin g Status Entered [facility] Do you feel stress - tense, restless, nervous, or anxious, or unable to sleep at night because your mind is troubled all the time - these days [OSQ] Rather much [facility] Work Phone: NEGATED: Highlighted row [facility] Medical Equipment Procedure Code Equipment Code Equipment Origin al Text Equipment Identifier Dates Fibertak Hip Yoanna f Bunching Kl Brewster 1.8mm [id number] Start: 07-10-2021 Fibertak Hip Yoanna f Bunching Kl Brewster 1.8mm [id number] Start: 07-10-2021 Fibertak Hip Yoanna f Bunching Kl Brewster 1.8mm [id number] Start: 07-10-2021 Fibertak Hip Yoanna f Bunching Kl Brewster 1.8mm [id number] Start: 07-10-2021 Membrane, Sepraf ilm, 5 X 6 In - [id number] Start: 03-05-2023 One touch Verio strips for One Touch Verio meter; test 4 times a day [id number] Start: 01-16-2019 End: 03-10-2023 Catheter Hodges Surecuff 9.6fr 3.2mm 1.6mm 2 Branch 90cm Central Venous 1 - [id number] Start: 10-15-2023 Functional Status Date Assessment Result Facility 11-04-2023 Functional Status N/A [facility] 07-17-2023 Functional status Patient at Baseline [facility] Work Phone: 05-17-2023 Functional Status N/A [facility] 05-12-2023 Functional Status No [facility] 05-12-2023 Functional Status [facility] 05-11-2023 Functional Status N/A [facility] 05-09-2023 Functional Status N/A [facility] 05-06-2023 Functional Status N/A [facility] 04-02-2023 Functional Status N/A [facility] 03-16-2023 Functional Status N/A [facility] 03-15-2023 Functional Status N/A [facility] 12-31-2022 Functional Status N/A [facility] 10-20-2022 Functional Status N/A [facility] 10-19-2022 Functional Status N/A [facility] 07-29-2022 Functional Status N/A [facility] 06-10-2022 Functional Status N/A [facility] Mental Status Date Assessment Result Facility 07-17-2023 Cognitive function Cognitive Sta tus Patient at Baseline [facility] Work Phone: Clinical Notes 07-09-2019 to 11-16-2023 Telephone Encounter - Vani Garcia RN - 11/16/2023 11:57 AM EDTTelephone Encounter - Vani Garcia RN - 11/16/2023 11:57 AM EDTBPablo espitia PSYD - 11/15/2023 12:55 PM EDT Note Date & Type Note Facility 11-16-2023 Telephone encount er Note On 11/15/23 Dr. Kat placed consult to EN clinic for tube change for pt, PEJ tube Exchange (Establish tract >4 weeks) (PAPER SORTER AND COUNTER), please change to button. Pt has J tube 20 Fr. Vani Garcia RN [facility] Work Phone: 11-16-2023 Miscellaneous Notes Formattin g of this note might be different from the original. On 11/15/23 Dr. Kat placed consult to [facility] clinic for tube change for pt, PEJ tube Exchange (Establish tract >4 weeks) (PAPER SORTER AND COUNTER), please change to button. Pt has J tube 20 Fr. Vani Garcia RN documented in this encounter [facility] 11-16-2023 Note [facility] 11-15-2023 Note HNO ID: [id number] Author: PABLO LEBRON PSYD Service: ? Author Type: Psychologist Type: Progress Notes Filed: 11/15/2023 13:19 Note Text: Assessment was conducted virtually. Patient is a resident of [place], and completed the assessment virtually in [place]. Psychologist is licensed and stationed in [place]. Informed consent was discussed and verbal assent was granted by the patient. GENERAL PSYCHOLOGY Session #: 7 (session count starts after PSYL NEW EVAL visit) SUBJECTIVE: Balancing self-care (health) and parenting responsibilities. Episodes of high anxiety and severe panic attacks last week (role of PCOS?; plans to discuss with OBGYN.). Two panic attacks per day last week (heart palpitations, racing thoughts, shaking, racing thoughts). Upcoming infusions for anemia (help with anxiety?) Coping tools (positive self-talk, meditation, taking walks, reading). Needing to improve marital communication (asking for help). Setting boundaries with mom. Relocate back to [place]? OBJECTIVE: Utilized cognitive behavioral and solution focused [...] ASSESSMENT: Explore and process pt's efforts to balance self-care (health) and parenting responsibilities. Pt describes episodes of high anxiety and severe panic attacks last week (role of PCOS?; plans to discuss with OBGYN; upcoming infusions for anemia, help with anxiety?) and identifies effective coping tools and sources of emotional support. Pt acknowledges the importance of setting boundaries with her mom; expresses interest in relocating back to [place] (missing family and friends). DIAGNOSIS: PRIMARY: 1: Major Depressive Disorder, Recurrent, Mild Generalized Anxiety Disorder Panic Disorder Without Agoraphobia Situational Stress PROVISIONAL: Unspecified trauma and stressor related disorder TREATMENT MODALITIES: Cognitive Behavioral Therapy to behavior modifications, cognitive restructuring, self monitoring and increasing pleasurable activities, Solution Focused Psychotherapy, Supportive Therapy PROGRESS TO DATE: Longterm Progress: Stable Short Term Condition: Stable GOALS/OBJECTIVES/INTERVENTIONS : To identify and implement tools for effectively managing symptoms of anxiety, stress, and low mood. Approximately 20 minutes were spent with the patient doing therapy. Pablo Lebron [facility] 11-15-2023 History of Presen t illness Narrative Assessment was conducted virtually. Patient is a resident of [place], and completed the assessment virtually in [place]. Psychologist is licensed and stationed in [place]. Informed consent was discussed and verbal assent was granted by the patient. GENERAL PSYCHOLOGY Session #: 7 (session count starts after PSYL NEW EVAL visit) SUBJECTIVE: Balancing self-care (health) and parenting responsibilities. Episodes of high anxiety and severe panic attacks last week (role of PCOS?; plans to discuss with OBGYN.). Two panic attacks per day last week (heart palpitations, racing thoughts, shaking, racing thoughts). Upcoming infusions for anemia (help with anxiety?) Coping tools (positive self-talk, meditation, taking walks, reading). Needing to improve marital communication (asking for help). Setting boundaries with mom. Relocate back to [place]? OBJECTIVE: Utilized cognitive behavioral and solution focused [...] ASSESSMENT: Explore and process pt's efforts to balance self-care (health) and parenting responsibilities. Pt describes episodes of high anxiety and severe panic attacks last week (role of PCOS?; plans to discuss with OBGYN; upcoming infusions for anemia, help with anxiety?) and identifies effective coping tools and sources of emotional support. Pt acknowledges the importance of setting boundaries with her mom; expresses interest in relocating back to [place] (missing family and friends). DIAGNOSIS: PRIMARY: 1: Major Depressive Disorder, Recurrent, Mild Generalized Anxiety Disorder Panic Disorder Without Agoraphobia Situational Stress PROVISIONAL: Unspecified trauma and stressor related disorder TREATMENT MODALITIES: Cognitive Behavioral Therapy to behavior modifications, cognitive restructuring, self monitoring and increasing pleasurable activities, Solution Focused Psychotherapy, Supportive Therapy PROGRESS TO DATE: Longterm Progress: Stable Short Term Condition: Stable GOALS/OBJECTIVES/INTERVENTIONS : To identify and implement tools for effectively managing symptoms of anxiety, stress, and low mood. Approximately 20 minutes were spent with the patient doing therapy. Pablo Lebron PsyD documented in this encounter [facility] 11-10-2023 History of Presen t illness Narrative VIRTUAL VISIT PROGRESS NOTE This is a virtual visit using [employer] Video Visit. It required patient-provider interaction for the medical decision making as documented below. I have communicated my name and active licensure. The patient's identity and physical location were verified at the time of this visit. Either the patient or their legal union representative has been informed of the risks and benefits of -- and alternatives to -- treatment through a remote evaluation and consents to proceed with the evaluation remotely. Postoperative Visit Date of Surgery: 10/07/2023 Surgery: Diagnostic laparoscopy, enteropexy around J-tube Post Op Diagnosis: 1. History of gastrojejunostomy. 2. Abdominal pain. 3. No internal hernia. Surgical Pathology: None Abbey Garcia is a 33 year old female seen for follow up post op. No recurrent severe pain, does have same chronic pain. Interested in j tube removal as is not using currently. PHYSICAL EXAMINATION: VIDEO EXAM: (if completed, performed via video enabled technology) GENERAL: alert and appropriate, in no distress and well-hydrated, well nourished ASSESSMENT: Jejunostomy PLAN: I messaged with her GI intestinal rehab physician who would like to keep J tube. I will then order a replacement to a button type. See me back as needed for concerns outside scope of her medical GI care team. Deacon Kat MD documented in this encounter [facility] 11-10-2023 Note [facility] 11-08-2023 Telephone encount er Note Scheduled 12/01 at 3:[address] Lawson Kim [facility] 11-08-2023 Miscellaneous Notes Formattin g of this note might be different from the original. Scheduled 12/01 at 3:[address] Lawson Kim Schedulers, please call pt to schedule. She is overdue. Dr. Lawson Kim, pt has not seen you since 03/2021. I don't see that you saw her for blood sugar issues. Do I refer her to PCP for low blood sugars? documented in this encounter [facility] 11-08-2023 Telephone encount er Note Schedulers, please call pt to schedule. She is overdue. Dr. Lawson Kim, pt has not seen you since 03/2021. I don't see that you saw her for blood sugar issues. Do I refer her to PCP for low blood sugars? [facility] 11-04-2023 Hospital Discharg e instructions Patient Education [...] are safe for you. General instructions Take [id number] and prescription medicines only as told by [...] provider. Document Revised: 01/25/2023 Document Reviewed: 01/25/2023 PostRank Patient Education 2023 [employer]. Follow Up Care 11/04/2023 10:40:57 With:Thomas Calix Address: [address] [place], [place] [id number] Business (1) When:11/07/2023 14:36:27 [facility] 11-04-2023 Evaluation + Plan note Extrac darvin from: Title:ED Note Author:Lonnie Rios PA-C te:11/04/23 Chest pain (R07.9: Chest london n, unspecified) Muscle spasm (M62.838: Other muscle spasm) Orders: diazepam, 5 mg = 1 tab(s), Tab, Oral, Once, Stop date 11/04/23 11:45:00 EDT, STAT, Start date 11/04/23 11:45:00 EDT, 11/04/23 11:45:00 EDT methocarbamol, 1,500 mg = 2 tab(s), Oral, TID, X 3 day(s), # 18 tab(s), Refills(s) 0, Pharmacy: [facility]/pharmacy #[id number], 167, cm, 11/04/23 10:46:00 EDT, Height/Length Dosing, 89.3, kg, 11/04/23 10:46:00 EDT, Weight Dosing oxycodone, 5 mg = 1 tab(s), Tab, Oral, Once, Stop date 11/04/23 11:10:00 EDT, STAT, Start date 11/04/23 11:10:00 EDT, 11/04/23 11:10:00 EDT XR Chest Single View [facility] [id number] Telephone encounter Note* Telephone Encounter - Imelda Gonzalez - 11/04/2023 10:34 AM EDT Lvm advising to call back to schedule, also replied to web appointment request to call us back. [facility]09-19-2024 Telephone encounter Note* Telephone Encounter - Imelda Gonzalez - 11/04/2023 10:34 AM EDT Webappointment request Reason for Appointment: Nutcracker syndrome [facility]09-19-2024 Miscellaneous Notes* Telephone Encounter - Imelda Gonzalez - 11/04/2023 10:34 AM EDT Lvm advising to call back to schedule, also replied to web appointment request to call us back. * Telephone Encounter - Imelda Gonzalez - 11/04/2023 10:34 AM EDT Webappointment request Reason for Appointment: Nutcracker syndrome [facility] History of Present illness Narrative* Bailey Mckeon [...] and evaluation for treatment. [facility] Telephone encounter Note * Telephone Encounter - Grecia Arcos - 11/02/2023 9:14 AM EDT Last visit 09/08/23 Grecia Velasquez [place] [facility]09-17-2024 Miscellaneous Notes* Telephone Encounter - Grecia Arcos Jose - 11/02/2023 9:14 AM EDT Last visit 09/08/23 Grecia Garcia Eva [place] [facility] Nurse Note* Alla Mckeon RN - [...] MATERIAL: Procedure Discharge Instructions REFERRAL (RECOMMENDATION): None [facility]09-16-2024 Nurse Note* Alla Mckeon RN - [...] RN In Department: GASTROENTEROLOGY [facility] NoteQ3 Patient Name: Abbey Garcia Procedure Date: 11/01/2023 8:00 AM Date of : 1990 Admit Type: Outpatient Age: 33 Gender: Female Note Status: Finalized Attending MD: Chichi Miller MD, [id number] Procedure: Upper GI endoscopy Indications: Heartburn Providers: Chichi Miller MD Patient Profile: This is a 33 year old female. Refer to note in patient chart for documentation of history and physical. Referring Physician: Kasie Avalos MD (Referring MD) Medicines: Monitored Anesthesia Care Complications: No immediate complications. Requesting Provider: Antonieta Iniguez Procedure: Pre-Anesthesia Assessment: - Prior to the [...] GI/Bariatric Endoscopy clinic. Please call for appointments [phone] or [phone]. - Patient has a contact number available for emergencies. The signs and symptoms of potential delayed complications were discussed with the patient. Return to normal activities tomorrow. Written discharge instructions were provided to the patient. Procedure Code(s): --- Professional --- 10414 Diagnosis Code(s): --- Professional --- K20.90 R12 CPT copyright 2020 [employer]. All rights reserved. Attending Participation: I personally performed the entire procedure. Scope In: 8:16:09 AM Scope Out: 8:18:[address] Chichi Miller MD 11/01/2023 8:24:33 AM This report has been signed electronically by Chichi Miller MD Number of Addenda: 0 Note Initiated (more content not included)...[id number] Nurse Note* Santa Raymundo RN - 11/01/2023 7:49 AM EDT PRE OP LEARNING ASSESSMENT PROCEDURE/SURGERY: GI PROCEDURES: EGD READINESS TO LEARN COGNITIVE ABILITY: Alert and oriented MOTIVATION TO LEARN: Interested FAMILY SUPPORT: High - Very involved in pt care PATIENT LEARNS BEST BY: Individual Instruction FACTORS AFFECTING LEARNING: None PHYSICAL LIMITATIONS AFFECTING LEARNING: None Electronically Signed By: Santa Raymundo RN In Department: GASTROENTEROLOGY [facility]09[facility]04[facility] History of Present illness Narrative* Breanna Stern APRN.BETH - 10/20/2023 2:02 PM EDT Assessment Postoperative Visit Virtual visit I have communicated my name and active licensure. The patient's identity and physical location wereverified at the time of this visit. Either the patient or their legal union representative has been informed of the risks [...] examination: LMP 08/19/2020 - virtual visit A&O, camilo, EDVIN Abdomen: no apparent distention Incisions: appear well [...] Dr Kat as scheduled 11/08/23 Breanna Stern APRN.BETH [facility] Telephone encounter Note * Telephone Encounter - Yaneth Mitchell MA - 10/15/2023 8:37 AM EDT Form was faxed over today. Yaneth Mitchell MA [facility]08-30-2024 Miscellaneous Notes* Telephone Encounter - Yaneth Mitchell MA - 10/15/2023 8:37 AM EDT Form was faxed over today. Yaneth Mitchell MA documented in this encounterGre[facility] History of Present illness Narrative* Jinny Neely, DADA - 10/13/2023 3:28 PM EDT Nutrition Assessment [...] managed by Dr. Thomas Calix Home Care: [facility] Pharm[facility]: [facility] [phone] Output: patient reports she had a catheter [...] increments 4 units 10/13/23 documented in this encounterGreene [facility]08-28-2024 Instructions* Patient Instructions* Georgina Carrillo MD - 10/13/2023 1:41 PM EDT MECHANICALLY ALTERED DIET This diet consists of foods that are mechanically altered by blending, grinding, mashing and pureeing. You may need this diet if you have small bowel obstructions and strictures. General Guidelines You will use a warehouse packaging supervisor or fast food delivery driver to prepare most of your foods. Most [...] fried, scrambled Yogurt: whole fat or 2% Vietnamese or Puerto Rican yogurts Cottage cheese Nut butters: choose these instead of nuts Refried beans Cheese Liquid milk (cow's, rice, soy, etc) Silken tofu Fish (eg canned tuna, baked salmon) Well-cooked/tender meats and poultry Protein powder: add to smoothies and/or milkshakes Hot cereals Mashed avocados Frozen yogurt Pudding/custard Sherbet Ice cream Fruit smoothies Applesauce documented in this encounterGreene [facility]08-28-[facility] History of Present illness Narrative* Georgina [...] -Order placed for tunneled central catheter for technician terminal and repeater access. PICC to be removed once tunneled [...] if needed Georgina Carrillo MD 10/13/2023 Staff Certified Art Therapist [facility] , REFERRING PROVIDER: Jaquan Morrow APRN, OPERATIONAL TRAINER [address] [place] [address] REASON FOR REFERRAL: TPN HISTORY: -Multiple abdominal [...] weeks. Do not use calcium as a tray filler preparation. 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 * Jinny Neely RD - 10/13/2023 12:06 PM EDT [facility] ([facility] NAME: Abbey Garcia AGE: [age] year old : PHONE: [phone] (home) [phone] (work) [phone] (cell) Referring MD: Dr. Kat PCP: Thomas [...] SBO. She has been referred to the [facility] from General Surgery Dr. Kat for [...] managed by Dr. Thomas Calix [facility] Care: [facility] Pharmacy: [facility] [phone] Output: patient reports she had a catheter [...] 10/12 and signed pt agreement. Dr. Carrillo/ CCJania HPN to take over PN mgmt. - [...] in 2-[address] Carrillo and ELISRT. If no s/s malabsorption at next visit, CGRT to sign off and HPN to follow. Signed by: Jinny Neely RD 10/13/2023 documented in this encounterGreene Memorial Hospital08-28-2024 [facility]08-28-2024 [facility]08-27-2024 NoteHNO ID: [id number] Author: JINNY NEELY RD Service: ? Author Type: Registered Dietitian Type: Progress Notes Filed: 10/13/2023 15:31 Note Text: Abstract moved to clinic visit on 10/13/[address] Carrillo and CGRT Jinny Neely [facility]08-27-2024 History of Present illness Narrative* Jinny Neely RD - 10/12/2023 10:41 AM EDT Abstract moved to clinic visit on 10/13/[address] Carrillo and ELISRT Jinny Neely RD documented in this encounterGreene Memorial Hospital08-26-2024 [facility] 10-11-2023 [facility] CenterGymwnmdo63-52-4129 Telephone encounter Note* Telephone Encounter - Louise Blankenship - 10/11/2023 9:52 AM EDT Page sent to our surgeon and hospital PA. For future, HUCs should call [phone] and press option 1. [facility] Work Phone: 1(934) 140-533208-26-2024 Miscellaneous Notes* Telephone Encounter - Louise Blankenship - 10/11/2023 9:52 AM EDT Page sent to our surgeon and hospital PA. For future, HUCs should call [phone] and press option 1. * Telephone Encounter - Sangeeta Bills RN - 10/11/2023 9:27 AM EDT [facility] calling regarding GENERAL SURGERY consult placed for this patient in Room 407. Nurses station [phone]. Advised this should be paged, nurse states she has order to call . documented in this encounterGreene Memorial Hospital08-26-2024 Telephone encounter Note * Telephone Encounter - Sangeeta Bills RN - 10/11/2023 9:27 AM EDT [facility] calling regarding GENERAL SURGERY consult placed for this patient in Room 407. Nurses station [phone]. Advised this should be paged, nurse states she has order to call . [facility] Work Phone: 1(749) 350-457908-25-2024 [facility] CenterJblsqcxr43-49-7525 Telephone encounter Note* Telephone Encounter - Serena [...] legs - BEST TO ALWAYS present to [facility] where you had your surgery No further questions from the patient at this time. Advised patient to reach [facility] by [facility] if any problems or questions arise. Serena Neff RN BSN Manager Card for Dr. Kat [facility]08-23-2024 Miscellaneous Notes* Telephone Encounter - Serena [...] legs - BEST TO ALWAYS present to [facility] where you had your surgery No further questions from the patient at this time. Advised patient to reach out by [facility] if any problems or questions arise. Serena Neff RN BSN Manager Card for Dr. Kat * Telephone Encounter - Serena Neff - 10/08/2023 3:47 PM EDT Phoned patient to see how she was doing after surgery. S/p: Diagnostic Laparoscopy, Enteropexy Around J-Tube. 10/07/2023 No answer. Left . Serena Neff RN BSN Manager Card for Dr. Kat documented in this encounterGreene Memorial Hospital08-23-2024 Telephone encounter Note * Telephone Encounter - Serena Neff - 10/08/2023 3:47 PM EDT Phoned patient to see how she was doing after surgery. S/p: Diagnostic Laparoscopy, Enteropexy Around J-Tube. 10/07/2023 No answer. Left . Serena Neff RN BSN Manager Card for Dr. Kat [facility]08-22-2024 NoteNorth Adams Regional HospitalCqexigba49-66-4117 [facility] 10-06-2023 Instructions* Patient Instructions* Chantal Brown APRN.OPERATIONAL TRAINER - 10/06/2023 4:14 PM EDT PATIENT PREOPERATIVE INSTRUCTIONS Deacon Kat MD has scheduled you for your procedure at this surgery center: [facility]: [phone] --[phone] [address]. Please check in on the1st floor at [...] Procedures: - YOU MUST HAVE A RESPONSIBLE TITLE CURATIVE SPECIALIST TAKE YOU HOME. A AUDIO EXPERIENCE EXPERT OR CONGRESSIONAL DISTRICT AIDE CANNOT BE MADE A RESPONSIBLE TITLE CURATIVE SPECIALIST. - We recommend that a responsible person [...] Advance Directive, please fax a copy to [phone] or email to for it to be [...] your chart that day. documented in this encounterGreene Memorial Hospital08-21-2024 History and physical note * Chantal Brown APRN.BETH - 10/06/2023 3:40 PM EDT SERVICE DATE: 10/06/2023 SERVICE TIME: 4:30 PM Surgeon: Deacon Kat MD Type of surgery: LAPAROSCOPY DIAGNOSTIC Patient scheduled for surgery on 10/07/2023 Surgery Location: [place] [facility] 125/84 Pulse 77 Temp 96.7 Resp 17 Ht 5' 5.6 (1.67m) Wt 181 lb 3.5 oz (82.2kg) SpO2 99% LMP 08/19/2020 BMI 29.62 kg/(m^2). CC: Patient presents with: Pre-Op Visit HPI: Abbey Garcia is a 33 year old year old FEMALE with recent [facility] [...] weeks. Do not use calcium as a tray filler preparation. If insomnia or vivid dreams [...] 462 QTC Calculation (Bazett) 445 Calculated P Cuero 74 Calculated R Cuero 74 Calculated T Cuero 51 Impression SINUS BRADYCARDIA OTHERWISE NORMAL ECG [...] DATE: October 06, 2023 TIME: 3:45 PM [facility]08-21-2024 History and physical note* Chantal Brown APRN.CNP - 10/06/2023 3:40 PM EDT SERVICE DATE: 10/06/2023 SERVICE TIME: 4:30 PM Surgeon: Deacon Kat MD Type of surgery: LAPAROSCOPY DIAGNOSTIC Patient scheduled for surgery on 10/07/2023 Surgery Location: [place] BP 125/84 Pulse 77 Temp 96.7 Resp 17 Ht 5' 5.6 (1.67m) Wt 181 lb 3.5 oz (82.2kg) SpO2 99% LMP 08/19/2020 BMI 29.62 kg/(m^2). CC: Patient presents with: Pre-Op Visit HPI: Abbey Garcia is a 33 year old year old FEMALE with recent H&P [facility]18[facility] [...] weeks. Do not use calcium as a tray filler preparation. If insomnia or vivid dreams [...] 462 QTC Calculation (Bazett) 445 Calculated P Cuero 74 Calculated R Cuero 74 Calculated T Cu[place] 51 Impression SINUS BRADYCARDIA OTHERWISE NORMAL ECG [...] voices comprehension and compliance. SIGNATURE: Chantal Brown APRN.OPERATIONAL TRAINER PATIENT NAME: Abbey Garcia DATE: October 06, 2023 TIME: 3:45 PM documented in this encounterGreene Memorial Hospital08-13-2024 NoteHNO ID: [id number] Author: PABLO LEBRON PSYD Service: ? Author [...] Focused Psychotherapy, Supportive Therapy PROGRESS TO DATE: Purchasing Department Clerk Progress: Stable Short Term Condition: Stable GOALS/OBJECTIVES/INTERVENTIONS: To identify and implement tools for effectively managing symptoms of anxiety, stress, and low mood. Approximately 20 minutes were spent with the patient doing therapy. [facility] History of Present illness Narrative* Pablo Lebron, [facility] - 09/28/2023 8:58 AM EDT Assessment was [...] Focused Psychotherapy, Supportive Therapy PROGRESS TO DATE: Purchasing Department Clerk Progress: Stable Short Term Condition: Stable GOALS/OBJECTIVES/INTERVENTIONS: To identify and implement tools for effectively managing symptoms of anxiety, stress, and low mood. Approximately 20 minutes were spent with the patient doing therapy. Pablo Lebron PsyD documented in this encounterGreene Memorial Hospital08-05-2024 History of Present illness Narrative* Deacon Kat MD - 09/20/2023 3:20 PM EDT VIRTUAL VISIT PROGRESS NOTE This is a virtual visit using [facility] Zoom Video Visit. It required patient- provider interaction for the medical decision making as documented below. I have communicated my name and active licensure. The patient's identity and physical location wereverified at the time of this visit. Either the patient or their legal union representative has been informed of the risks [...] weeks. Do not use calcium as a tray filler preparation. If insomnia or vivid dreams [...] additional findings. CT ABD/PEL W IVCON (Order #[id number]) on 09/18/2023 - Order Result History Report [...] was characterized by healthy appearing mucosa. The luiyvaiz-gg-jucicpb limb was examined. The examined jejunum was [...] symptom association observed. PH HUERTA INSERT ON Sansan (Order #[id number]) on 08/31/2023 - Order Result History Report - Result Edited EGD - THERAPEUTIC, EUS, OR TUBE INTERVENTIONS (Order #[id number]) on 08/26/2023 - Order Result History Report [...] Moderate Deacon Kat MD documented in this encounterGreene Memorial Hospital08-05-2024 NoteCleveland Clinic08-03-2024 NoteLone Peak [id number] NoteLone Peak HospitalDvdayihx63-45-2146 Note L[facility] HospitalUtobodzl93-40-2758 History of Present illness Narrative* Veronika Han [...] weeks. Do not use calcium as a tray filler preparation. If insomnia or vivid dreams [...] which included preparing to see the patient, vvqp-tu-rxpr patient care, completing clinical documentation, obtaining and/or reviewing separately obtained history, performing a medically appropriate examination, counseling and educating the pat ient/family/caregiver, ordering medications, tests, or procedures, and communicating with other HCPs (not separately reported). Signature: Kasie Avalos MD Date: 09/08/23 Time: 12:10 PM documented in this encounterGreene Memorial Hospital07-24-2024 NoteC[facility] Clinic07-16-2024 NoteC[facility] Clinic07-16-2024 History of Present illness Narrative* Marisabel Lynn LPN - 08/31/2023 3:13 PM EDT Name: Abbey Garcia [facility]#: [id number] Date: 08/31/2023 HUERTA 48 HR PH FOLLOW-UP The HUERTA monitor was returned today.. Test data from the segment assembler was downloaded. Events from the patient diary were inserted into the study for physician review. .Marisabel Lynn LPN documented in this encounterGreene Memorial Hospital07-11-2024 Nurse Note* Carlee Fuller LPN - [...] MATERIAL: Procedure Discharge Instructions REFERRAL (RECOMMENDATION): None [facility]07-11-2024 Nurse Note* Carlee Fuller LPN - [...] RN In Department: GASTROENTEROLOGY documented in this encounterGreene Memorial Hospital07-11-2024 Nurse Note* Erica Freeman RN - [...] MATERIAL: Procedure Discharge Instructions REFERRAL (RECOMMENDATION): None [facility]07-11-2024 NoteCleveland Clinic07-11-2024 History of Present illness Narrative* Marisabel Lynn LPN - 08/26/2023 4:10 PM EDT Name: Abbey Garcia [facility]#: [id number] Date: 08/26/2023 48hr HUERTA PH CAPSULE PLACEMENT [...] hours. .Marisabel Lynn LPN documented in this encounterGreene Memorial Hospital07-11-2024 Nurse Note* Lisette Newell RN - 08/26/2023 3:26 PM EDT Patient had a PICC line present on admission to [facility]. PICC line had a brisk blood return and flushedper [facility] policy. Patient tolerated well. [facility]07-11-2024 Nurse Note* Lisette Newell RN - [...] By: Lisette Newell RN In Department: GASTROENTEROLOGY [facility]07-10-2024 Telephone encounter Note* Telephone Encounter - Sabina Ibrahim MA - 08/25/2023 9:14 AM EDT Called patient; [facility] in [place] has been removed from Pharmacy list. Patient requests [facility]. Patient's request for medication is as follows: [...] weeks. Do not use calcium as a tray filler preparation. If insomnia or vivid dreams occur, then would take capsule at 9 am. Prescription(s) as above. Please process accordingly. Sabina Ibrahim MA [facility]07-10-2024 Miscellaneous Notes* Telephone Encounter - Sabina Ibrahim MA - 08/25/2023 9:14 AM EDT Called patient; [facility] in [place] has been removed from Pharmacy list. Patient requests [facility]. Patient's request for medication is as follows: [...] weeks. Do not use calcium as a tray filler preparation. If insomnia or vivid dreams occur, then would take capsule at 9 am. Prescription(s) as above. Please process accordingly. Sabina Ibrahim MA documented in this encounterGreene Memorial Hospital07-08-2024 Telephone encounter Note * Telephone Encounter - Deacon Kat MD - 08/23/2023 8:52 AM EDT Doxycycline ordered. Make sure bumper is not tight to skin, there should be 1 cm (1/3 inch) of play. [facility]07-08-2024 Miscellaneous Notes* Telephone Encounter - Deacon Kat MD - 08/23/2023 8:52 AM EDT Doxycycline ordered. Make sure bumper is not tight to skin, there should be 1 cm (1/3 inch) of play. documented in this encounterGreene Memorial Hospital07-05-2024 Telephone encounter Note * Telephone Encounter [...] appreciative of call. Serena Neff RN BSN Manager Card for Dr. Kat [facility]07-05-2024 Miscellaneous Notes* Telephone Encounter - Serena [...] appreciative of call. Serena Neff RN BSN Manager Card for Dr. Kat * Telephone Encounter - [...] to Dr. Kat. Serena Neff RN BSN Manager Card for Dr. Kat documented in this encounterGreene Memorial Hospital07-03-2024 Telephone encounter Note * Telephone Encounter - Serena Neff - 08/18/2023 12:30 PM EDT Staff message sent to Dr. Kat. [facility]07-03-2024 Telephone encounter Note* Telephone Encounter - [...] too far out, as he is taking [place] to the hospital 1-2 times per week for fear of obstruction and management of her severe abdominal pain. Asked if pt was on waiting list and if they had thenumber to reach the intestinal rehab schedulers. confirms they are on waiting list and theyhave the number. Understands it is a busy service, but struggling with waiting 2 more months while [place] is in pain. requesting to speak with Dr. Kat about potentially repairing hernia and taking down adhesions in an attempt to solve her pain issues. Advised that I would forward his requests andconcerns to Dr. Kat. Serena Neff APPRENTICESHIP REPRESENTATIVE Manager Card for Dr. Kat [facility]06-27-2024 Telephone encounter Note* Telephone Encounter - [...] have family/friend present for procedure transport home:Patient/patient union representative was told that if they do [...] area. Any barriers to Patient learning: Patient/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 Engineering Manager responded appropriately on phone. Type of instruction given: Verbal by telephone contact. Radha Osman MA [facility]06-27-2024 Miscellaneous Notes* Telephone Encounter - Radha [...] have family/friend present for procedure transport home:Patient/patient union representative was told that if they do [...] area. Any barriers to Patient learning: Patient/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 Engineering Manager responded appropriately on phone. Type of instruction given: Verbal by telephone contact. Radha Osman MA documented in this encounterGreene Memorial Hospital06-24-2024 History of Present illness Narrative* Vic Ramos MD - 08/09/2023 2:00 PM EDT Images from the original note were not included. SUBJECTIVE: The [facility] to [facility] for a follow-up [...] report reviewed by the physician Jose called [facility] & was told that medications will not [...] re: Kadi vs. different [place] location vs. [employer] online to try She previously tried gabapentin, [...] spray continued (problem with in stock at [facility] pharmacy) Return to clinic (in-person office visit or virtual visit/telemedicine) after all above completed fully. I spent a total of 25 minutes on the date of the service which included: *preparing to see the patient *nmqf-tp-kkte patient care *completing clinical documentation *obtaining and/or [...] MD August 05, 2023 documented in this encounterGreene Memorial Hospital06-24-2024 NoteCleveland Clinic06-21-2024 [facility] CenterJmfovtvq35-40-5144 NoteHNO ID: [id number] Author: MARIA TERESA MURILLO MD Service: Hospital Medicine Author Type: Physician Type: Plan of Care Filed: 08/06/2023 11:50 Note Text: To review with pulmonologyLone Peak HospitalJousbigz34-44-0818 [facility] CenterOwucwmny70-64-6052 Telephone encounter Note* Telephone Encounter - Nathalie [...] loss. Physician office visit required for refill. [facility]06-20-2024 Miscellaneous Notes* Telephone Encounter - Nathalie [...] visit required for refill. documented in this encounterGreene Memorial Hospital06-20-2024 [facility] 08-04-2023 [facility] CenterUoqylcgu50-44-0405 [facility] CenterKhehttev50-02-9317 [facility] CenterEiyjmscp93-02-4183 Telephone encounter Note* Telephone Encounter - Allyson Cline HUC - 08/04/2023 9:29 AM EDT Lucie from [facility] pharmacy calling regarding RX just sent in for Ketamine. He states that is not something they have or can help with at [facility]. States maybe a compounding pharmacy. So RX unavailable. [facility]06-19-2024 Miscellaneous Notes* Telephone Encounter - Allyson Cline HUC - 08/04/2023 9:29 AM EDT Lucie from [facility] pharmacy calling regarding RX just sent in for Ketamine. He states that is not something they have or can help with at [facility]. States maybe a compounding pharmacy. So RX unavailable. documented in this encounterGreene Memorial Hospital06-19-2024 History of Present illness Narrative* Boogie Murguia MD - 08/04/2023 9:00 AM EDT Follow up Visit Patient Name: Abbey Garcia MR #: [id number] Age: [age] year old Date: August 03, [...] SD worse than population and warrants attention Internal Medicine Specialist:Nathalie Reed MA The patient is a 33-year-old [...] a soft abdomen. Patient has remarkable tenderness Sargent to palpation even forvery light palpation in [...] Ramos and her nextvisit documented in this encounterGreene Memorial Hospital06-19-2024 NoteC[facility] Clinic06-04-2024 NoteNorth Adams Regional HospitalKoncnbut44-89-5937 NoteNorth Adams Regional Hospital 07-18-2023 NoteNorth Adams Regional HospitalOastfvxq76-50-5111 Consult note Author Keven Kimbrough [facility] July 17, 2023 2:08pm Note Date/Time July 17, 2023 1:56p m [facility] [address] [place] [address] General Surgery Consult Note Signed Patient: Abbey Garcia MR#: [id number] : 1990 Acct:[id number] Age/Sex: 33 / F Adm Date: 4 Loc: Room: [address] [place] [address] Type: ADM IN Attending Dr: Camden Rodriguez DO Copies to: MD Thomas Jordan MD Yazid Hussein, DO~ History of Present Illness Date of consult: 07/17/2023 Requesting/Attending Provider: Camden Rodriguez DO History of present illness: The patient is a 33-year-old female admitted with nausea and vomiting. Patient had Tan-en-Y gastric bypass procedure done 2021 at [facility]. In 2020, she had had a gastric [...] have a procedure done at [facility] in the near future. CT scan here showed:IMPRESSION: Fluid-filled distal small bowel loops without gross distention. Developing small bowel obstruction cannot be excluded Currently, patient has some nausea and some upper abdominal discomfort.. Review of Systems Constitutional Constitutional: Denies fever(s) Cardiovascular Cardiovascular: Denies chest pain Respiratory Respiratory: Denies dyspnea Gastrointestinal Gastrointestinal: Reports abdominal pain, Reports nausea and Reports vomiting [facility] Medical History Encounter for PEG (percutaneous endoscopic gastrostomy) Median arcuate ligament syndrome Spleen enlarged Problem List clean-up per request of Phys. EHR Cmte Liver cyst Problem List clean-up per request of Phys. EHR Cmte Anxiety Problem List clean-up per request of Phys. [facility]HR [facility] Depression Problem List clean-up per request of Phys. EHR Cmte PCOS (polycystic ovarian syndrome) Problem List clean-up per request of Phys. EHR Cmte Hypothyroid Problem List clean-up per request of Phys. EHR [facility] Surgical History History of gastric bypass 01/2022 History of appendectomy Problem List clean-up per request of Phys. EHR [facility] Family History Father Hypothyroidism Mother Family history of mental disorder [facility] Problem: Diagnosed with Mental Illness Hypertension Diabetes [...] 15 Mg Tablet) 15 mg PO TID [facility] Stop: 07/16/24 13:59 Dextrose (Dextrose 50% In Water 25 Gm/50 Ml Syringe) 0 gm IV-PUSH PRN PRN PRN Reason: Hypoglycemia Stop: 07/16/24 11:08 Enoxaparin Sodium (Enoxaparin 40 Mg/0.4 Ml Syringe) 40 mg SUBCUT DAILY@10 [facility] Stop: 07/16/24 09:59 Last Admin: 07/17/23 11:23 Dose: 40 mg Escitalopram Oxalate (Escitalopram 20 Mg Tablet) 20 mg PO DAILY [facility] Stop: 07/16/24 08:59 Last Admin: 07/17/23 11:21 Dose: 20 mg Glucose (Dextrose 40% Gel 15 Gm Tube) 0 gm PO PRN PRN PRN Reason: Hypoglycemia Stop: 07/16/24 11:08 Sodium Chloride (0.9% Sodium Chloride 1,000 Ml) 1,000 mls @ 100 mls/hr IV .[id number] Stop: 07/18/24 08:59 Potassium Chloride 20 meq/ [...] 1,512.2 mls @ 63.008 mls/hr IV DAILY@1800 [facility]; Protocol Stop: 07/16/24 17:59 Fat Emulsion Intravenous 250 (ml/ IV Miscellaneous Supplies) 250 mls @ 21 mls/hr IV MOWEFR@1800 [facility] Stop: 07/18/24 17:59 Levothyroxine Sodium (Levothyroxine 75 Mcg Tablet) 75 mcg PO DAILY@0630 [facility] Stop: 07/17/24 06:29 Liothyronine Sodium (Liothyronine 5 Mcg Tablet) 5 mcg PO DAILY [facility] Stop: 07/16/24 08:59 Last Admin: 07/17/23 11:21 Dose: 5 mcg Methocarbamol (Methocarbamol 500 Mg Tablet) 500 mg PO BID [facility] Stop: 07/16/24 08:59 Last Admin: 07/17/23 11:21 Dose: 500 mg Metoclopramide HCl (Metoclopramide 10 Mg Tablet) 10 mg PO TID.AC [facility] Stop: 07/16/24 11:29 Last Admin: 07/17/23 [...] Appearance Clear, Urine pH 7.5, Ur Specific [place] 1.006, Urine Protein Negative, Urine Glucose (UA) [...] % (Auto) 75.6, Lymph % (Auto) 18.7, [place] % (Auto) 4.5, Eos % (Auto) 0.5, Baso % (Auto) 0.7, Nucleat RBC Rel Count 0.0, Neut # (Auto) 5.2, Lymph # (Auto) 1.3, Newton # (Auto) 0.3, Eos # (Auto) 0.0, [...] seen by her surgeon at [facility] for her GI issues status post gastric bypass surgery. Transfer to [facility] is pending. Patient currently does not have [...] <Electronically signed by MD Keven Kimbrough> 07/17/23 [id number] [facility] Work Phone: 1(533) 137-965406-01-2024 History and physical note Author Camden Rodriguez [facility] July 17, 2023 11:19am Note Date/Time July 17, 2023 11:19 am [facility] [address] [place] [address] Hospitalist H&P Signed Patient: Abbey Garcia MR#: [id number] : 1990 Acct:[id number] Age/Sex: 33 / F Adm Date: 4 Loc: 4N Room: 3I1589-4 Type: ADM IN Attending Dr: Camden Rodriguez [...] unless noted below or in HPI [facility] Medical History Encounter for PEG (percutaneous endoscopic gastrostomy) Median arcuate ligament syndrome Spleen enlarged Problem List clean-up per request of Phys. EHR Cmte Liver cyst Problem List clean-up per request of Phys. EHR [facility] Anxiety Problem List clean-up per request of Phys. EHR [facility] Depression Problem List clean-up per request of Phys. EHR [facility] PCOS (polycystic ovarian syndrome) Problem List clean-up per request of Phys. EHR Cmte Hypothyroid Problem List clean-up per request of Phys. [facility] History of gastric bypass 01/2022 History of appendectomy Problem List clean-up per request of Phys. EHR [facility] Family History Father Hypothyroidism Mother [facility] of [facility] disorder [facility] Problem: Diagnosed with Mental Illness Hypertension Diabetes [...] % (Auto) 18.7 % (.) 07/16/23 15:10 Newton % (Auto) 4.5 % (.) 07/16/23 15:10 Eos % (Auto) 0.5 % (.) 07/16/23 15:10 Baso % (Auto) 0.7 % (.) 07/16/23 15:10 Nucleat RBC Rel Count 0.0 /100 WBC (0-0.5) 07/16/23 15:10 Neut # (Auto) 5.2 x10E3/uL (1.8-7.7) 07/16/23 15:10 Lymph # (Auto) 1.3 x10E3/uL (1.00-4.8) 07/16/23 15:10 Newton # (Auto) 0.3 x10E3/uL (0.0-0.8) 07/16/23 15:10 [...] pH 7.5 (5.0-9.0) 07/16/23 15:21 Ur Specific [place] 1.006 (1.001-1.030) 07/16/23 15:21 Urine Protein Negative [...] signed by Camden Rodriguez DO> 07/17/23 1119 [facility] Work Phone: 1(625) 792-461405-30-2024 NoteC[facility] Clinic05-28-2024 Telephone encounter Note* Telephone Encounter - Natalie [...] have family/friend present for procedure transport home:Patient/patient union representative was told that if they do [...] area. Any barriers to Patient learning: Patient/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 Engineering Manager responded appropriately on phone. Type of instruction given: Verbal by telephone contact. Natalie Alarcon LPN [facility]05-28-2024 Miscellaneous Notes* Telephone Encounter - Natalie [...] have family/friend present for procedure transport home:Patient/patient union representative was told that if they do [...] area. Any barriers to Patient learning: Patient/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 Engineering Manager responded appropriately on phone. Type of instruction given: Verbal by telephone contact. Natalie Alarcon LPN documented in [facility]-2024 Note [id number] [facility] 07-09-2023 NoteHNO ID: [id number] Author: PABLO LEBRON PSYD Service: ? Author [...] exercise, positive self-talk). Sources of support (, hwxaxk-ic-olb, brothers, grandfather). OBJECTIVE: Utilized cognitive behavioral and [...] positive self-talk) and sources of support (, tyqafj-dj-blz, brothers, grandfather). Pt requests to end session early due to childcare needs. DIAGNOSIS: PRIMARY: 1: Depression, Controlled Generalized Anxiety Disorder Situational Stress PROVISIONAL: Unspecified trauma and stressor related disorder TREATMENT MODALITIES: Cognitive Behavioral Therapy to behavior modifications, cognitive restructuring, self monitoring and increasing pleasurable activities, Solution Focused Psychotherapy, Supportive Therapy PROGRESS TO DATE: Longterm Progress: Stable Short Term Condition: Stable GOALS/OBJECTIVES/INTERVENTIONS: To identify and implement tools for effectively managing symptoms of anxiety, stress, and low mood. Approximately 15 minutes were spent with the patient doing therapy. [facility] History of Present illness Narrative* Pablo Lebron, [facility] - 07/09/2023 8:57 AM EDT [...] exercise, positive self-talk). Sources of support (, jzxfpv-hj-ttn, brothers, grandfather). OBJECTIVE: Utilized cognitive behavioral and [...] positive self-talk) and sources of support (, evlwie-kx-pwl, brothers, grandfather). Pt requests to end session early due to childcare needs. DIAGNOSIS: PRIMARY: 1: Depression, Controlled Generalized Anxiety Disorder Situational Stress PROVISIONAL: Unspecified trauma and stressor related disorder TREATMENT MODALITIES: Cognitive Behavioral Therapy to behavior modifications, cognitive restructuring, self monitoring and increasing pleasurable activities, Solution Focused Psychotherapy, Supportive Therapy PROGRESS TO DATE: Longterm Progress: Stable Short Term Condition: Stable GOALS/OBJECTIVES/INTERVENTIONS: To identify and implement tools for effectively managing symptoms of anxiety, stress, and low mood. Approximately 15 minutes were spent with the patient doing therapy. Pablo Lebron PsyD documented in [facility] encounter[facility]05-[facility]-2024 NoteC[facility]05-21-2024 Nurse Note* Rosanna Blanco OCCA - 07/06/2023 1:55 PM EDT Post Void Residual done on patient with 8 cc residual volume remaining. notified. ALLISON Schreiber [facility]05-21-2024 Nurse Note* Rosanna Blanco OCCA - 07/06/2023 1:55 PM EDT Post Void Residual done on patient with 8 cc residual volume remaining. notified. ALLISON Schreiber documented in this encounterGreene [facility] Hospital05-21-2024 History of Present illness Narrative* Francisco J Steve MD - 07/06/2023 1:40 PM EDT [facility] RECONSTRUCTIVE SURGERY PATIENT HISTORY AND PHYSICAL EXAM PATIENT INFO: Abbey Garcia is a 33 year old female. REFERRING M.D.: Marcos Moreno [address] [place] [address] [place] [address] Moreno for an [...] having recent UTI, that was treated at [facility] (although no records seen of this) and that she required a long catheter for two weeks due to high amounts in her bladder. No recent dysuria or hematuria. Does endorse some left flank pain. History of three C-sections, no vaginal deliveries QUESTIONNAIRE: Questionnaire: [facility] Ambulatory Visit Intake Questionnaire Question Answer [...] you will be given? No Questionnaire: [facility] Michelle Additional Demo Question Answer Is this visit related to an accident, other than Workers' Compensation? No Is this visit related to Workers' Compensation? No Do you need an care transition mgr? 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 Pegfeedings stopped and flushed prior to clamping. Patient TPN stopped PICC flushed patient to leave with PICC [facility]05-18-2024 Nurse Note* Tory Mcmullen RN - [...] stool ( not witnessed by nurse). * Santa Ferris RN - 07/02/2023 12:00 PM EDT [...] lumen picc, per patient was placed at [facility] about a month ago for TPN infusions. [...] call light within reach. documented in this [facility] Work Phone: 1(241) 973-434405-18-2024 Nurse Note* Tory Mcmullen RN - 07/03/2023 2:11 PM EDT Long removed per orders, discharge prepared at this time. [facility] Work Phone: 1([phone]) 695-586105-18-2024 History of Present illness Narrative* Dolores Cox MD - 07/03/2023 12:22 PM EDT Abbey Garcia is a 33 y.o. female on day 3 of admission presenting with Epigastric pain. Subjective She presented to the hospital with abdominal pain. She had previously undergone laparoscopic sleeve gastrectomy, on 09/03/2020 at the [facility]. She has a gastrojejunostomy tube. [...] medication and antiemetic. [facility]. Dolores Cox MD * Fadumo Edge RDN, LD - 07/02/2023 2:23 PM EDT Nutrition Progress Note messaged me for tube feed recommendations. Pt is now receiving tube feed and TPN. Nutrition Interventions and Recommendations: Nutrition Prescription: Individualized Nutrition Prescription Provided for : 3253-2506 kcals, 59-71 gm protein via parentaland enteral [...] home. Patient was active with RN from [facility] prior to admission. Patient would like to continue with their services post discharge. External referral already placed and sent to [facility]. [facility] will need to be notified via CarePort at the time of discharge. Will follow. 07/02/23 1049 Discharge Planning Home or Post Acute Services In home services Type of Home Care Services Home nursing visits Patient expects to be discharged to: Home with [facility] Does the patient need discharge transport [...] line position verification COMPARISON: 03/17/2023 ACCESSION NUMBER(S): [id number] ORDERING CLINICIAN: DOLORES COX TECHNIQUE: Single AP view chest FINDINGS: Cardiomediastinal silhouette is within normal limits. Right-sided PICC line identified with tip in the region of the mid SVC. No infiltrate or effusion is identified. Visualized osseous structures unremarkable. Impression: 1. Right PICC line placement with tip in the mid SVC. 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 Morel at [facility] for intestinal rehab Start trickle [...] tomorrow, will plan to discharge home with [facility]. Kina Ann MD * Shelley Nash, PAPER SORTER AND COUNTER-OPERATIONAL TRAINER - 07/01/2023 2:37 PM EDT Abbey Garcia [...] GI rehab program as previously recommended at [facility]. GS will sign off. I spent 15 minutes in the professional and overall care of this patient. JAMA Greenberg * Zoey Blanco RN - 07/01/2023 12:50 PM EDT Patient not medically clear. TCC met with patient to discuss discharge plans. Patient active with [facility] and would like to continue with RN only. External referral [facility]. Will follow. 07/01/23 1250 Discharge Planning Home or Post Acute Services In home services Type of Home Care Services Home nursing visits Patient expects to be discharged to: Home with [facility] Does the patient need discharge transport arranged? No Patient Choice Provider Choice list and [facility] website (https://medicare.gov/care-compare#search) for post-acute Quality and Resource Measure Data were provided and reviewed with: Patient Patient / Family choosing to utilize agency / facility established prior to hospitalization Yes * Jason Foster, PAPER SORTER AND COUNTER-OPERATIONAL TRAINER - 07/01/2023 11:49 AM EDT Abbey Garcia [...] 83 mL/hr, Last Rate: 83 mL/hr (06/30/23 7101) dextrose 10 % in water (D10W), 75 mL/hr, Last Rate: 75 mL/hr (07/01/23 1618) PRN medications PRN medications: acetaminophen OR acetaminophen, albuterol, alteplase, dextrose, dextrose, glucagon, glucagon, hydrOXYzine HCL, ondansetron, sodium chloride 0.9%, traMADol Vascular US mesenteric artery duplex complete Result Date: 07/01/2023 [place] [address] Vascular Lab Report [facility] US MESENTERIC ARTERY DUPLEX COMPLETE Patient Name: ABBEY Oneil Physician: [id number] Sherry Magaña MD Study Date: 06/30/2023 Ordering Provider: [id number] JAMIL GAVIN MRN/PID: [id number] Fellow: Technologist: Leia Degroot RVT Date of /Age: 2 1990 / 33 years Technologist 2: Gender: F Admission Status: Inpatient Location Performed: [facility] 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 Report Amended Report Amended By: [id number] Magaña MD Date and Time: 06/30/2023 at [...] PSV 89 cm/s KEELY PSV 105 cm/s [id number] Sherry Magaña [place] [id number] Magaña MD Electronically Amended 06/30/2023, 12:15 PM [...] Audie Gutierrez 06/30/2023 12:06 PM Dictation workstation: [id number] CT abdomen pelvis wo IV contrast Result Date: 06/29/2023 Interpreted By: Fly West, STUDY: CT ABDOMEN PELVIS WO IV CONTRAST; 06/29/2023 11:09 pm INDICATION: Signs/Symptoms:Abdominal pain. COMPARISON: 03/16/2023 ACCESSION NUMBER(S): [id number] ORDERING CLINICIAN: DAVID VALADEZ TECHNIQUE: Axial CT [...] Fly West 06/29/2023 11:53 PM Dictation workstation: [id number] CT abdomen pelvis w IV contrast Result [...] Trace ascites, also present on previous exams Authorizer: [facility] Transcribe Date/Time: Jun 18 2023 3:00P Dictated by : KYLE HERNANDEZ MD This examination was interpreted and the report reviewed and electronically signed by: KYLE HERNANDEZ MD on Jun 18 2023 3:30PM EST CT abdomen pelvis w IV contrast Result Date: 06/06/2023 * * *Final Report* * * DATE OF EXAM: Jun 06 2023 5:47PM [facility] 0530 - CT ABD/PEL W IVCON [...] PROCESS. NO SIGNIFICANT INTERVAL CHANGE SINCE 12/06/2022. Authorizer: JUANCARLOS Transcribe Date/Time: Jun 06 2023 7:08P [...] cause. Recommend following up with the [facility] for intestinal rehab as recommended [...] sleeve gastrectomy, on 09/03/2020 at the [facility]. She has a gastrojejunostomy tube. [...] Visiting: Yes Values/Beliefs Spiritual Requests During Hospitalization: [place] NPO Keesha Jack * Shanique Bradford RN [...] relatives? Twice How often do you attend bahai or anglican services? More than 4 Do you belong to any clubs or organizations such as bahai groups, unions, fraternal or athletic groups, or [...] In the past 12 months has the [place], cicayda, or water [employer] threatened to shut off services in your [...] sleeve gastrectomy, on 09/03/2020 at the [facility]. She had a gastrojejunostomy tube. [...] for Epigastric pain. Pharmacy reviewed the patient's owbuo-hy-plsfjsbkg medications and allergies for accuracy. Medications ADDED: Methocarbamol 750 mg TID Medications CHANGED: Buspirone 10 mg Mirtazapine 30 mg Miralax Topiramate 100 mg Medications REMOVED: Diazepam 5 mg Percocet 5 mg/325 mg The list below reflects the updated OUTBOUND CALL CENTER REPRESENTATIVE list. Comments regarding how patient may be [...] Low Nausea/vomiting Pharmacy has been updated to [facility]. Sources used to complete the med history include patient interview, OUTBOUND CALL CENTER REPRESENTATIVE list, dispense history Below are additional concerns with the patient's OUTBOUND CALL CENTER REPRESENTATIVE list. -Pt is no longer taking diazepam or Percocet -Added methocarbamol 750 mg TID -Buspirone, mirtazapine, Miralax and topiramate doses have changed Mariela Tesfaye PharmD Please reach out via [employer] Secure Chat for questions * Sherry Magaña [...] Dr. Deacon Kat, her general surgeon at [facility]. The plan from them is a referralto [facility] intestinal rehabilitation. Patient to follow up with Dr. Catalan office. 06/30/23 at 8:28 AM - Sherry Magaña MD Addendum: There is conclusively no vascular etiology for patient's current pain syndrome. Needs to be referred ultimately to Dr. Deacon Kat and Intestinal Rehab unit at [facility] after stabilization. Duplex shows no compression of celiac axis or internal lesions. There is no stenosis of the celiac axis or SMA. CTA reviewed. No vascular compression documented in this [facility] Work Phone: 1(105) 843-949905-18-2024 Plan of care note* Care Plan - [...] monitored and maintained or improved Outcome: Progressing [facility] Work Phone: [phone]) 345-341205-18-2024 Miscellaneous Notes* Care Plan - Tory Mcmullen [...] no hearing aids. Her PCP is in [facility]; and she uses [facility] [address] in [facility]. She has a hx of gastric bypass, c/o abd pain. No anticipated discharge needs. DISCHARGE PLAN: HOME WITH documented in this [facility] Work Phone: [phone]) 328-918705-18-2024 Nurse Note* Tory Mcmullen RN - 07/03/2023 8:16 AM EDT Assumed care of patient at this time, patient is resting in bed with brake in place and call light in reach denies any needs [facility] Work Phone: [phone] Nurse Note* Grecia Schaffer RN - 07/03/2023 6:49 AM EDT Chg bath performed by this nurse. Gown and linens changed. Pt ambulated to the bathroom, pt reportsliquid dark, black stool ( not witnessed by nurse). [facility]05-17-2024 Plan of care note* Care Plan [...] did make progress toward the following goals. [facility] Work Phone: 1(468) 299-499505-17-2024 Nurse Note* Santa Ferris RN - 07/02/2023 12:00 PM EDT Upon rounding right upper arm dual lumen PICC with current CHG dressing dry and intact. One port inuse, one with brisk blood return and flushes easily, clamped and Curos cap intact. [facility]05-16-2024 Plan of care note* Care Plan [...] monitored and maintained or improved Outcome: Progressing [facility]05-16-2024 Nurse Note* Edilia Darby RN - 07/01/2023 1:56 PM EDT CXR from today verifies picc tip in mid [facility]. [facility]05-16-2024 Nurse Note* Edilia Darby RN - 07/01/2023 12:48 PM EDT Patient with Rt arm dual lumen picc, per patient was placed at [facility] about a month ago for TPN infusions. [...] tip placement is needed. RN to message T [facility] Work Phone: [phone]) 918-942605-16-2024 Consult note* Fadumo Edge RDN, SALVADOR - [...] renal failure superimposed on chronic kidney disease ([facility]) 06/29/2023 Anxiety Arthritis Asthma ([facility]) CPAP (continuous positive airway pressure) dependence Depression Disease of thyroid gland Dizziness GERD (gastroesophageal reflux disease) Hypothyroidism Irritable bowel syndrome with constipation Median arcuate ligament syndrome ([facility]) PCOS (polycystic ovarian syndrome) PONV (postoperative nausea [...] Energy Needs Total Energy Estimated Needs (kCal): (7822-8297) Total Estimated Energy Need per Day (kCal/kg): (25-30) Method for Estimating Needs: ABW Estimated Protein Needs Total Protein Estimated Needs (g): (59-71) Total Protein Estimated Needs (g/kg): (1-1.2) Method for Estimating Needs: ABW Estimated Fluid Needs Total Fluid Estimated Needs (mL): (5226-6230) Method for Estimating Needs: 1 mL/kcal Nutrition Diagnosis Nutrition Diagnosis: Nutrition Diagnosis Patient has Nutrition Diagnosis: Yes Diagnosis Status (1): New Nutrition Diagnosis 1: Altered GI function Related to (1): physiological causes As Evidenced by (1): need for TPN, cannot tolerate PO/ tube feed Nutrition Interventions/Recommendations Nutrition Interventions and Recommendations: Nutrition Prescription: Individualized Nutrition Prescription Provided for : 6581-2098 kcals, 59-71 gm protein via parentalnutrition Nutrition [...] Comment: 07/05/23 [facility] Work Phone: [phone]) 787-614505-16-2024 Consult note* Fadumo Edge RDN, LD - [...] renal failure superimposed on chronic kidney disease ([facility]) 06/29/2023 Anxiety Arthritis Asthma ([facility]) CPAP (continuous positive airway pressure) dependence Depression Disease of thyroid gland Dizziness GERD (gastroesophageal reflux disease) Hypothyroidism Irritable bowel syndrome with constipation Median arcuate ligament syndrome ([facility]) PCOS (polycystic ovarian syndrome) PONV (postoperative [...] Dietary Orders (From admission, onward) Start Ordered 06/30/23 730 May Participate in Room Service Once Question: . Answer: Yes 06/30/23 1748 06/30/23 0227 NPO Diet Except: Sips with meds; Effective now Diet effective now Question: Except: Answer: Sips with meds 06/30/23 0230 Nutrition Support Intake provides: 1420 kcals, 100 gm protein, 2000 mL total volume Estimated Needs: Estimated Energy Needs Total Energy Estimated Needs (kCal): (1886-6579) Total Estimated Energy Need per Day (kCal/kg): (25-30) Method for Estimating Needs: ABW Estimated Protein Needs Total Protein Estimated Needs (g): (59-71) Total Protein Estimated Needs (g/kg): (1-1.2) Method for Estimating Needs: ABW Estimated Fluid Needs Total Fluid Estimated Needs (mL): (8455-4967) Method for Estimating Needs: 1 mL/kcal Nutrition Diagnosis Nutrition Diagnosis: Nutrition Diagnosis Patient has Nutrition Diagnosis: Yes Diagnosis Status (1): New Nutrition Diagnosis 1: Altered GI function Related to (1): physiological causes As Evidenced by (1): need for TPN, cannot tolerate PO/ tube feed Nutrition Interventions/Recommendations Nutrition Interventions and Recommendations: Nutrition Prescription: Individualized Nutrition Prescription Provided for : 8356-0566 kcals, 59-71 gm protein via parentalnutrition Nutrition [...] which she follows a surgeon at [facility]. They have been trying to [...] renal failure superimposed on chronic kidney disease ([facility]) (06/29/2023), Anxiety, Arthritis, Asthma ([facility]), CPAP (continuous positive airway pressure) dependence, Depression, Disease of thyroid gland, Dizziness, GERD (gastroesophageal reflux disease), H ypothyroidism, Irritable bowel syndrome, Median arcuate ligament syndrome ([facility]), PCOS (polycystic ovarian syndrome), PONV (postoperative nausea and vomiting), PUD (peptic ulcer disease), and Shortness of breath. She has no past medical history of Autoimmune disorder ([facility]), Bipolar disorder ([facility]), BPH (benign prostatic hyperplasia), Cerebral aneurysm ([facility]), Cervical cancer ([facility]), Cervical disc disease, Chronic kidney disease, CKD (chronic kidney disease), Cognitive decline, Crohn's disease ([facility]), Dementia (Multi), Dysphagia, Endometrial cancer ([facility]), Esophageal cancer ([facility]), Esophageal disease, ESRD (end stage renal disease) ([facility]), Fibromyalgia, primary, Fractures, Gastric cancer ([facility]), Gender dysphoria, GI (gastrointestinal bleed), Hemodialysis status ([facility]), Hernia, internal, H istory of peritoneal dialysis, HIV disease ([facility]), Immunocompromised ([facility]), Liver disease, Lumbar disc disease, Mastocytosis, MS (multiple sclerosis) ([facility]), Muscular dystrophy ([facility]), Myasthenia gravis (Multi), Neuromuscular disorder (Multi), Ovarian [...] Yellow, Dark-Yellow Appearance, Urine Clear Clear Specific [place], Urine 1.023 1.005 - 1.035 pH, Urine [...] Audie Gutierrez 06/30/2023 12:06 PM Dictation workstation: [id number] Vascular US mesenteric artery duplex complete Result Date: 06/30/2023 Preliminary Cardiology Report [place] [id number] Preliminary Vascular Lab Report [facility] US MESENTERIC ARTERY DUPLEX COMPLETE Patient Name: ABBEY GARCIA Reading Physician: [id number] Sherry Magaña MD Study Date: 06/30/2023 Ordering Provider: [id number] JAMIL GAVIN MRN/PID: [id number] Fellow: Technologist: Leia Degroot RVT Date of : 1990 Technologist 2: Gender: F Admission Status: Inpatient Location Performed: [facility] 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 COMPARISON: 03/16/2023 ACCESSION NUMBER(S): [id number] ORDERING CLINICIAN: DAVID VALADEZ TECHNIQUE: Axial CT [...] Fly West 06/29/2023 11:53 PM Dictation workstation: [id number] Assessment/Plan Abdominal pain FTT 33-year-old female with complicated history after gastric bypass surgery. She has been working witha surgeon at [facility] to advance her tube feeds and oral intake and decrease the TPN, however this has been unsuccessful. She was evaluated by Dr. Magaña here and there is no evidence of celiac or SMA stenosis or compression. There is an intestinal rehabilitation program through [facility] and recommend follow-up with that [...] nausea aftera gastric bypass surgery done at [facility] in which she has been hospitalized [...] 14 06/30/2023 CREATININE 0.60 06/30/2023 * Tiffanie Mendez APRN-BETH - 06/30/2023 8:31 AM EDTAssociated Order(s): IP CONSULT TO VASCULAR SURGERY Reason for Consult Mid epigastric abdominal pain History Of Present Illness This is a 33-year-old female with past medical history of chronic abdominal pain, PCOS, PUD, depression, GERD, IBS, obesity (status post laparoscopic sleeve gastrectomy in August [address] Ku vucHyos-me-L gastric bypass 01/29/[address] Kat) and median arcuate ligament syndrome who presented to the emergency department for further evaluation of mid epigastric abdominal pain and nausea. Jonh jose follows with GI and general surgery with the [facility] and is currently on TPN [...] also spoke with her general surgeon at [facility] where patient was advised for referral to [facility] intestinal rehabilitation. Past Medical History Past Medical History: Diagnosis Date Acute renal failure superimposed on chronic kidney disease ([facility]) 06/29/2023 Anxiety Arthritis Asthma ([facility]) CPAP (continuous positive airway pressure) dependence Depression Dizziness GERD (gastroesophageal reflux disease) Hypothyroidism Irritable bowel syndrome with constipation Median arcuate ligament syndrome ([facility]) PCOS (polycystic ovarian syndrome) PONV (postoperative nausea [...] Insecurity: No Food Insecurity (06/07/2023) Received from [facility] Hunger Vital Sign Worried About Running Out of Food in the Last Year: Never true Ran Out of Food in the Last Year: Never true Transportation Needs: No Transportation Needs (06/07/2023) Received from [facility] PRAPARE - Transportation Lack of Transportation (Medical): No Lack of Transportation (Non-Medical): No Physical Activity: Insufficiently Active (10/28/2022) Received from [facility] Exercise Vital Sign Days of Exercise per Week: 4 days Minutes of Exercise per Session: 30 min Stress: Stress Concern Present (10/28/2022) Received from [facility] [employer] - Occupational Stress Questionnaire Feeling of Stress : To some extent Social Connections: Socially Integrated (10/28/2022) Received from [facility] Social Connection and Isolation Panel [NHANES] Frequency of Communication with Friends and Family: More than three times a week Frequency of Social Gatherings with Friends and Family: Once a week Attends Anglican Services: 1 to 4 times per year Active Member of Clubs or Organizations: Yes Attends Club or Organization Meetings: More than 4 times per year Marital Status: Intimate Partner Violence: Not on file Housing Stability: Low Risk (06/07/2023) Received from [facility] Housing Stability Vital Sign Unable to Pay for Housing in the Last Year: No Number of Places Lived in the Last Year: 1 Unstable Housing in the Last Year: No Family History Family History Problem Relation Name Age of Onset Diabetes Mother Jessica Artino Hypertension Mother Jessica Artino Cancer Maternal Grandfather Danyell Efra COPD Maternal Grandfather Danyell Kraus Heart disease [...] Yellow, Dark-Yellow Appearance, Urine Clear Clear Specific [place], Urine 1.023 1.005 - 1.035 pH, Urine [...] INDICATION: Signs/Symptoms:Abdominal pain. COMPARISON: 03/16/2023 ACCESSION NUMBER(S): [id number] ORDERING CLINICIAN: DAVID VALADEZ TECHNIQUE: Axial CT [...] Fly West 06/29/2023 11:53 PM Dictation workstation: [id number] Physical exam Constitutional: Alert and oriented to [...] consult Patient advised to follow-up with Dr. aKt's office after discharge Needs further workup for episodes of hypoglycemia documented in this [facility] Work Phone: 1(501) 705-341005-16-2024 Nurse Note* Mayda Balbuena LPN - 07/01/2023 2:30 AM EDT Pt alert and oriented, long intact, clear yellow urine , medicated twice for left epigastric pain with somewhat effect, TPN running at 83ml/hr, tolerating well, no sign of adverse reaction, pt remain NPO , sips with meds, pt in no acute distress, all safety measures in place, call light within reach. [facility]05-15-2024 Plan of care note* Care Plan - Mayda Balbuena LPN - 06/30/2023 10:12 PM EDT The patient's goals for the shift include feel better The clinical goals for the shift include pain control [facility] Work Phone: 1(263) 611-456205-15-2024 Consult note* Tomasa Ortiz MD - 06/30/2023 [...] which she follows a surgeon at [facility]. They have been trying to [...] renal failure superimposed on chronic kidney disease ([facility]) (06/29/2023), Anxiety, Arthritis, Asthma ([facility]), CPAP (continuous positive airway pressure) dependence, Depression, Disease of thyroid gland, Dizziness, GERD (gastroesophageal reflux disease), H ypothyroidism, Irritable bowel syndrome, Median arcuate ligament syndrome ([facility]), PCOS (polycystic ovarian syndrome), PONV (postoperative nausea and vomiting), PUD (peptic ulcer disease), and Shortness of breath. She has no past medical history of Autoimmune disorder ([facility]), Bipolar disorder ([facility]), BPH (benign prostatic hyperplasia), Cerebral aneurysm ([facility]), Cervical cancer ([facility]), Cervical disc disease, Chronic kidney disease, CKD (chronic kidney disease), Cognitive decline, Crohn's disease ([facility]), Dementia ([facility]), Dysphagia, Endometrial cancer ([facility]), Esophageal cancer (Multi), Esophageal disease, ESRD (end stage renal disease) ([facility]), Fibromyalgia, primary, Fractures, Gastric cancer ([facility]), Gender dysphoria, GI (gastrointestinal bleed), Hemodialysis status ([facility]), Hernia, internal, H istory of peritoneal dialysis, HIV disease ([facility]), Immunocompromised ([facility]), Liver disease, Lumbar disc disease, Mastocytosis, MS (multiple sclerosis) ([facility]), Muscular dystrophy ([facility]), Myasthenia gravis (Multi), Neuromuscular disorder (Multi), Ovarian cancer ([facility]), Pancreatitis ([facility]), Peptic ulcer disease, Prematurity ([facility]), PTSD (post-traumatic stress disorder), Schizophrenia (Multi), Seizure [...] Grandmother Grandpa Anesthesia problems Paternal Grandfather Elan Jeterino Arthritis Paternal Grandfather Elandanny Jeterino Hypertension Paternal [...] Yellow, Dark-Yellow Appearance, Urine Clear Clear Specific [place], Urine 1.023 1.005 - 1.035 pH, Urine [...] Audie Gutierrez 06/30/2023 12:06 PM Dictation workstation: [id number] Vascular US mesenteric artery duplex complete Result Date: 06/30/2023 Preliminary Cardiology Report [facility] [id number] [place], [place] [id number] Preliminary Vascular Lab Report VASC US MESENTERIC ARTERY DUPLEX COMPLETE Patient Name: ABBEY GARCIA Reading Physician: [id number] Sherry Magaña MD Study Date: 06/30/2023 Ordering Provider: [id number] JAMIL Jose GAVIN MRN/PID: [id number] Fellow: Technologist: Leia Degroot RVT Date of : 1990 Technologist 2: Gender: F Admission Status: Inpatient Location Performed: [facility] 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 COMPARISON: 03/16/2023 ACCESSION NUMBER(S): [id number] ORDERING CLINICIAN: DAVID WODRICH TECHNIQUE: Axial CT images of the abdomen [...] Fly West 06/29/2023 11:53 PM Dictation workstation: [id number] Assessment/Plan Abdominal pain FTT 33-year-old female with complicated history after gastric bypass surgery. She has been working witha surgeon at [facility] to advance her tube feeds and oral intake and decrease the TPN, however this has been unsuccessful. She was evaluated by Dr. Magaña here and there is no evidence of celiac or SMA stenosis or compression. There is an intestinal rehabilitation program through [facility] and recommend follow-up with that program. Cont TPN for nutrition and PO/tube feeds as tolerated in the meantime Tomasa Ortiz MD [facility] Work Phone: 1(853) 714-588805-15-2024 Plan of care note* Care Plan - [...] no hearing aids. Her PCP is in [facility]; and she uses [facility] on [address] in [facility]. She has a hx of gastric bypass, c/o abd pain. No anticipated discharge needs. DISCHARGE PLAN: HOME WITH [facility] Work Phone: 1([phone]) 606-133205-15-2024 Consult note* JAMA Solis - 06/30/2023 11:27 [...] nausea aftera gastric bypass surgery done at [facility] in which she has been hospitalized [...] 06/30/2023 BUN 14 06/30/2023 CREATININE 0.60 06/30/2023 [facility] Work Phone: 1(120) 438-631705-15-2024 Consult note* Tiffanie Mendez, JAMA - 06/30/2023 8:31 AM EDTAssociated Order(s): IP CONSULT TO VASCULAR SURGERY Reason for Consult Mid epigastric abdominal pain History Of Present Illness This is a 33-year-old female with past medical history of chronic abdominal pain, PCOS, PUD, depression, GERD, IBS, obesity (status post laparoscopic sleeve gastrectomy in August [address] Ku [id number]-N gastric bypass 01/29/[address] Kat) and median arcuate ligament syndrome who presented to the emergency department for further evaluation of mid epigastric abdominal pain and nausea. P damon follows with GI and general surgery with the [facility] and is currently on TPN [...] also spoke with her general surgeon at [facility] where patient was advised for referral to [facility] intestinal rehabilitation. Past Medical History Past Medical History: Diagnosis Date Acute renal failure superimposed on chronic kidney disease ([facility]) 06/29/2023 Anxiety Arthritis Asthma ([facility]) CPAP (continuous positive airway pressure) dependence Depression Dizziness GERD (gastroesophageal reflux disease) Hypothyroidism Irritable bowel syndrome with constipation Median arcuate ligament syndrome ([facility]) PCOS (polycystic ovarian syndrome) PONV (postoperative [...] Insecurity: No Food Insecurity (06/07/2023) Received from [facility] Hunger Vital Sign Worried About Running Out of Food in the Last Year: Never true Ran Out of Food in the Last Year: Never true Transportation Needs: No Transportation Needs (06/07/2023) Received from [facility] PRAPARE - Transportation Lack of Transportation (Medical): No Lack of Transportation (Non-Medical): No Physical Activity: Insufficiently Active (10/28/2022) Received from [facility] Exercise Vital Sign Days of Exercise per Week: 4 days Minutes of Exercise per Session: 30 min Stress: Stress Concern Present (10/28/2022) Received from [facility] [employer] - Occupational Stress Questionnaire Feeling of Stress : To some extent Social Connections: Socially Integrated (10/28/2022) Received from [facility] Social Connection and Isolation Panel [NHANES] Frequency of Communication with Friends and Family: More than three times a week Frequency of Social Gatherings with Friends and Family: Once a week Attends Anglican Services: 1 to 4 times per year Active Member of Clubs or Organizations: Yes Attends Club or Organization Meetings: More than 4 times per year Marital Status: Intimate Partner Violence: Not on file Housing Stability: Low Risk (06/07/2023) Received from [facility] Housing Stability Vital Sign Unable to [...] Yellow, Dark-Yellow Appearance, Urine Clear Clear Specific [place], Urine 1.023 1.005 - 1.035 pH, Urine [...] INDICATION: Signs/Symptoms:Abdominal pain. COMPARISON: 03/16/2023 ACCESSION NUMBER(S): [id number] ORDERING CLINICIAN: DAVID VALADEZ TECHNIQUE: Axial CT [...] Fly [place] 06/29/2023 11:53 PM Dictation workstation: [id number] Physical exam Constitutional: Alert and oriented to [...] Needs further workup for episodes of hypoglycemia [facility] Work Phone: 1(237) 875-294005-15-2024 Emergency department Note* Carla Alejo LPN - 06/30/2023 6:43 AM EDT Patient in gown at this time no c/o pain or discomfort no needs made known at this time Patient sleeping, chest rises and falls at equal intervals and patient takes breaths. Responds verbaly to calling of name and acknowledges this nurses presence in room Carla Alejo LPN 06/30/23 0665 [facility]05-15-2024 Emergency department Note* Carla Alejo LPN [...] orchills. No chest pain. No other complaints. [employer] Coma Scale Score: 15 Patient History Past Medical History: Diagnosis Date Acute renal failure superimposed on chronic kidney disease ([facility]) 06/29/2023 Anxiety Arthritis Asthma ([facility]) CPAP (continuous positive airway pressure) dependence Depression Dizziness GERD (gastroesophageal reflux disease) Hypothyroidism Irritable bowel syndrome with constipation Median arcuate ligament syndrome ([facility]) PCOS (polycystic ovarian syndrome) PONV (postoperative [...] interpretation: Sinus rhythm 59 bpm normal axis [place] interval 140 QTc 453 no ectopy or [...] physician verbal order Carla Alejo LPN 06/29/23 3766 documented in this [facility] Work Phone: 1(228) 997-781105-15-2024 Emergency department Note* Carla Alejo LPN - 06/30/2023 5:48 AM EDT Patient vitals taken, labs drawn and sent and patient medicated for pain , vitals taken and charted, no c/o discomfort or other needs at this time Carla Alejo LPN 06/30/23 0549 [facility] Work Phone: 1([phone]) 601-550605-15-2024 History and physical note* Baldomero Woodard MD - 06/30/2023 2:40 AM EDT History Of Present Illness Abbey Garcia is a 33 y.o. female presenting with 2-year history of abdominal pain and nausea after a gastric bypass surgery done at [facility] she has been hospitalized multiple times for this. She has a combination gastric tube jejunostomy tube which is supposed to be used for tube feeds she is on TPN. She has a surgeon at [facility] but she also sees Dr. Magaña [...] get her nausea under control with Reglan [id number] will consult general surgery to help with [...] Woodard MD [facility] Work Phone: 1(870) 169-262105-15-2024 History and physical note* Baldomero Woodard MD - 06/30/2023 2:40 AM EDT History Of Present Illness Abbey Garcia is a 33 y.o. female presenting with 2-year history of abdominal pain and nausea after a gastric bypass surgery done at [facility] she has been hospitalized multiple times for this. She has a combination gastric tube jejunostomy tube which is supposed to be used for tube feeds she is on TPN. She has a surgeon at [facility] but she also sees Dr. Magaña [...] get her nausea under control with Reglan [id number] will consult general surgery to help with this complicated acute on chronic situation will order subcu heparin IV Protonix will make sure her gastric tube in her J- tube gets flushed. 3 times a day will order most of her home meds the way she takes them at home either by mouth or for through the J-tube. Baldomero Woodard MD documented in this [facility] Work Phone: 1(381) 435-478005-14-2024 Emergency department Note* Carla Alejo LPN - 06/29/2023 8:57 PM EDT Assumed care of patient , labs drawn originally while tpn was attached and running , blood glucose redone via fingerstick with result of 117 and cbc/bmp reordered STAT , drawn and sent to lab Carla Alejo LPN 06/29/232057 [facility] Work Phone: 1(801) 501-327205-14-2024 Emergency department Note* Carla Alejo LPN - 06/29/2023 5:37 PM EDT medications held at this time per ED physician verbal order Carla Alejo LPN 06/29/232311 [facility] Work Phone: 1([phone]) 468-369405-14-2024 Physician Emergency department Note* David Dykes Rory, - 06/29/2023 5:37 PM [...] kidney disease ([facility]-HCC) 06/29/2023 Anxiety Arthritis Asthma ([facility] [...] use: Never Physical Exam ED Triage Vitals [06/29/236] Temperature Heart Rate Respirations BP 36.3 C [...] interpretation: Sinus rhythm 59 bpm normal axis WY interval 140 QTc 453 no ectopy or [...] Procedure Procedures David Valadez DO 06/30/23 0244 [facility] Work Phone: 1(973) 988-863505-07-2024 History of Present illness Narrative* Sherry Magaña MD - 06/22/2023 11:45 AM EDT Patient and I had a video conference as she was at home in [place] and I was at the [facility] vascular [facility]. She reports doing poorly with bouts of [...] conference was 10 minutes [facility] Work Phone: 1(467) 832-462705-03-2024 Note [id number]#1.00TIFYusef [facility] 06-18-2023 History of Present illness Narrative* Breanna Stern APRN.BETH - 06/18/2023 10:00 AM EDT Assessment Postoperative [...] in a stable condition. Date of Surgery: 09/27/23 Surgery: 1. Laparoscopic gastric exploration (to facilitate [...] Kat Follow up with Dr Jacquelyn Stern APRN.OPERATIONAL TRAINER [facility] Note* Yaneth Mitchell MA - 06/18/2023 9:35 AM EDT What is the reason for your visit today? Post op PEG-J placement Who is your referring physician? Are you having poor oral intake? YES Have you had unintentional weight loss of 15 lbs/7 Kg in the last 3-6 months? NO Bowels: diarrhea Wound: Temperature: No Drains: No [facility]05-03-2024 Nurse Note* Yaneth Mitchell MA - 06/18/2023 9:35 AM EDT What is the reason for your visit today? Post op PEG-J placement Who is your referring physician? Are you having poor oral intake? YES Have you had unintentional weight loss of 15 lbs/7 Kg in the last 3-6 months? NO Bowels: diarrhea Wound: Temperature: No Drains: No documented in [facility] Telephone encounter Note * Telephone Encounter [...] with scheduling provider for ketamine refill appt. [facility]05-02-2024 Miscellaneous Notes* Telephone Encounter - Clarence [...] for ketamine refill appt. documented in this [facility]05-[facility]24 Telephone encounter Note * Telephone Encounter - Seerna Neff - 06/17/2023 11:40 AM EDT Phoned Malka back with Dr. Kat's response. He will not be managing patient's TPN. Malka advised that she arranged for hospitalist to manage. Serena Neff APPRENTICESHIP REPRESENTATIVE Manager Card for Dr. Kat [facility]05-02-2024 Miscellaneous Notes* Telephone Encounter - Serena Neff - 06/17/2023 11:40 AM EDT Phoned Malka back with Dr. Kat's response. He will not be managing patient's TPN. Malka advised that she arranged for hospitalist to manage. Serena Neff APPRENTICESHIP REPRESENTATIVE Manager Card for Dr. Kat * Telephone Encounter - Dorita Manning - 06/15/2023 3:20 PM EDT Malka from [facility] calling asking if Dr Kat will follow patient for TPN. Physician there is discharging patient on TPN. CB# [phone] ext [phone] documented in [facility]04-[facility]24 Telephone encounter Note * Telephone Encounter - Dorita Manning - 06/15/2023 3:20 PM EDT Malka from [facility] calling asking if Dr Kat will follow patient for TPN. Physician there is discharging patient on TPN. CB# [phone] ext [phone] [facility]04-30-2024 [id number]#1.00TIFF [facility]04-29-2024 Telephone encounter Note* Telephone Encounter - Stephanie Sumner DO - 06/14/2023 4:39 PM EDT Hospital Medicine Transfer Received page for transfer request from [facility] to [facility]: Abbey Garcia is 33 year old female who presented with nausea, vomiting and worsening LUQ pain. Pt has complicated gastric surgery history and is currently doing TF via PEG for nutrition. Per [facility] pt is HDS and electrolytes are stable. Pt is requesting transfer to because that is where her care team is and states she only went to [facility] because they have short wait times. ED team gave IVF and IV pain meds which improved LUQ pain somewhat. Pts notified Dr Kat that she was going to ED. Reason for transfer: continuity of care Accepted to hospital medicine service at [facility] Stephanie Sumner DO 4:39 PM [facility] Work Phone: [phone]) 845-410104-29-2024 Miscellaneous Notes* Telephone Encounter - Stephanie Sumner DO - 06/14/2023 4:39 PM EDT Hospital Medicine Transfer Received page for transfer request from [facility] to [place]: Abbey Garcia is 33 year old female who presented with nausea, vomiting and worsening LUQ pain. Pt has complicated gastric surgery history and is currently doing TF via PEG for nutrition. Per [facility] pt is HDS and electrolytes are stable. Pt is requesting transfer to because that is where her care team is and states she only went to [facility] because they have short wait times. ED team gave IVF and IV pain meds which improved LUQ pain somewhat. Pts notified Dr Kat that she was going to ED. Reason for transfer: continuity of care Accepted to hospital medicine service at [facility] Stephanie Sumner DO 4:39 PM documented in this [facility]04-29-2024 Telephone encounter Note * Telephone Encounter - Serena Neff - 06/14/2023 3:31 PM EDT Phoned patient and to discuss ED admission today. Pt is being transferred from [facility] to [facility]. Patient complaining of worsening left sided [...] this time. Serena Neff RN BSN Manager Card for Dr. Kat [facility]04-29-2024 Miscellaneous Notes* Telephone Encounter - Serena Neff - 06/14/2023 3:31 PM EDT Phoned patient and to discuss ED admission today. Pt is being transferred from [facility] to [facility]. Patient complaining of worsening left sided [...] this time. Serena Neff RN BSN Manager Card for Dr. Kat documented in this [facility]Greene [facility]04-26-2024 Note [id number]#1.00[facility] 06-09-2023 NoteHNO ID: [id number] Author: PABLO LEBRON PSYD Service: ? 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 Appreciative of supportive and [...] Focused Psychotherapy, Supportive Therapy PROGRESS TO DATE: Longterm Progress: Stable Short Term Condition: Stable GOALS/OBJECTIVES/INTERVENTIONS: To identify and implement tools for effectively managing symptoms of anxiety, stress, and low mood. Approximately 45 minutes were spent with the patient doing therapy. 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 Appreciative of supportive and [...] Focused Psychotherapy, Supportive Therapy PROGRESS TO DATE: Longterm Progress: Stable Short Term Condition: Stable GOALS/OBJECTIVES/INTERVENTIONS: To identify and implement tools for effectively managing symptoms of anxiety, stress, and low mood. Approximately 45 minutes were spent with the patient doing therapy. Pablo Lebron PsyD documented in this encounterGreene [facility] Hospital04-23-2024 [facility] 06[facility]07[facility]2023 [facility] [id number] [facility]04-16-2024 [facility]04-16-2024 History of Present illness Narrative* Vic Ramos MD - 06/01/2023 4:28 PM EDT TELEMEDICINE VISIT Modified Protocol for treatment of other conditions supportive of goal to minimize vulnerable patient exposure to Covid-19 [facility] Emergency Consented for encounter Patient verified by name and Abbey Garcia [id number] 1990 Patient consents to virtual visit Patient located at home Dr. Ramos located at [facility] office SUBJECTIVE: The patient presents to [facility] Department for pain in [...] which included preparing to see the patient, boup-bg-akiu patient care, completing clinical documentation, obtaining and/or [...] MD June 01, 2023 documented in this encounterGreene Memorial Hospital04-15-2024 Note [id number] [facility] 05-30-2023 Miscellaneous Notes* Telephone Encounter - Deacon Kat MD - 05/30/2023 10:16 AM EDT Significant constipation - no bm since Wednesday, a lot of rectal pressure. Tried her linzess, miralax. Recommended enema OTC + dulcolax suppository. Contact me if not improved. Deacon Kat MD documented in this encounterGreene Memorial Hospital04-12-2024 Miscellaneous Notes* Telephone Encounter - Nabila Jackson RPh - 05/28/2023 5:48 PM EDT ERx for Nutren sent to [facility] today. These orders are unable to be processed here, but may be eligible to fill using [facility]fusion [facility] at [place]. Please review and if appropriate, send forward for processing. Thank you! [facility] [phone] documented in this encounterGreene Memorial Hospital04-12-2024 [facility] 05-28-2023 Miscellaneous Notes* Telephone Encounter - [...] and advise. Grecia Wallace documented in this encounterGreene Memorial Hospital04-12-2024 [facility] 05-27-2023 NoteHNO ID: [id number] Author: EH KIMBALL, DEE Service: Nursing Author Type: Registered Nurse Type: Nursing Progress Note Filed: 05/27/2023 09:20 Note Text: Other: 0900 Pt verbalizes interest about bolus feeding. Personal Care Home Administrator made aware. [facility] HospitalYjkitsnu82-45-5693 NoteNorth Adams Regional HospitalGwsglggt95-39-4271 NoteNorth Adams Regional HospitalGqnkobdw68-13-1054 [facility]04-08-2024 Note [id number] Health Main Campus 05-22-2023 NoteNorth Adams Regional HospitalZfofqhwa29-88-7510 NoteNorth Adams Regional HospitalAknkrsmt58-23-7134 Note [facility] HospitalImxmdyad02-88-2337 NoteNorth Adams Regional HospitalInwjjbxw36-21-7365 Telephone encounter Note* Telephone Encounter - Itzel Hurley RN - 05/18/2023 9:25 AM EDT Images from the original note were not included. EGD images; please review [facility] EGD Report 05/12/2023 [facility]04-02-2024 Miscellaneous Notes* Telephone Encounter - Itzel Hurley RN - 05/18/2023 9:25 AM EDT Images from the original note were not included. EGD images; please review [facility] EGD Report 05/12/2023 * Telephone Encounter - Silvina Brown - 05/18/2023 9:20 AM EDT Received records from [facility]. EGD dated 05/12/2023 Discharge Summary 05/11 to 05/14/2023 Ct Abdomen/Pelvis 05/11/2023 Please review thank you! documented in this encounterGreene Memorial Hospital04-02-2024 Telephone encounter Note * Telephone Encounter - Silvina Brown - 05/18/2023 9:20 AM EDT Received records from [facility]. EGD dated 05/12/2023 Discharge Summary 05/11 to 05/14/2023 Ct Abdomen/Pelvis 05/11/2023 Please review thank you! [facility]04-01-2024 Hospital Discharge instructions Patient Education 05/17/2023 [...] at pharmacies and retail stores. Eat bland, bima-nb-qwannq foods in small amounts as you are [...] and water are not available, use hand quality control lab tech. Make sure that everyone in your household washes their hands frequently. Take inou-xmo-wiujbyl and prescription medicines only as told by [...] and water are not available, use hand quality control lab tech. Watch your condition for any changes and for signs of dehydration. Keep all follow-up visits. This is important. This information is not intended to replace advice given to you by your health care provider. Make sure you discuss any questions you have with your health care provider. Document Revised: 08/08/2021 Document Reviewed: 08/08/2021 PostRank Patient Education 2022 [employer]. Follow Up Care 05/17/2023 14:15:17 With:Jaquan Paula [facility], MED Address: When:05/20/2023 [facility]04-01-2024 History of Present illness Narrative* Deacon Kat MD - 05/17/2023 2:40 PM EDT VIRTUAL VISIT PROGRESS NOTE This is a virtual visit using Runcomt Zoom Video Visit. It required patient- provider interaction for the medical decision making as documented below. I have communicated my name and active licensure. The patient's identity and physical location wereverified at the time of this visit. Either the patient or their legal union representative has been informed of the risks [...] PM -------- ORIGINAL REPORT -------- Dictation workstation: [id number] Impression Postsurgical changes from gastric bypass. No evidence for obstruction.. MACRO: none Signed by: Corie Garza 03/17/2023 5:00 PM Dictation workstation: [id number] Narrative Interpreted By: Corie Garza, STUDY: FL UPPER GI W DOUBLE CONTRAST W SMALL BOWEL FOLLOW THROUGH; 03/17/2023 4:40 pm INDICATION: Signs/Symptoms:abdominal pain. COMPARISON: None. ACCESSION NUMBER(S): [id number] ORDERING CLINICIAN: TIFFANIE MENDEZ TECHNIQUE: Multiple fluoroscopic spot images were obtained during a single contrast upper GI with KUB. Total fluoroscopy time: 1 minute 32 seconds Radiation exposure (Reference Air Kerma): 99.36 mGy Images: 2 spot images 7 series and 2 delayed AP views of the abdomen FINDINGS: Research Consultant images demonstrate postsurgical changes from previous Tan-en-Y [...] Corie Garza 03/16/2023 5:46 PM Dictation workstation: [id number] Narrative Interpreted By: Corie Garza, STUDY: CT ABDOMEN PELVIS W IV CONTRAST; 03/16/2023 5:27 pm INDICATION: Signs/Symptoms:abdominal pain - with oral and IV contrast. COMPARISON: None.. ACCESSION NUMBER(S): [id number] ORDERING CLINICIAN: TIFFANIE MENDEZ TECHNIQUE: Oral contrast [...] ER. Deacon Kat MD documented in this encounterGreene Memorial Hospital04-01-2024 [facility]04-01-2024 Evaluation + Plan noteExtracted from: Title:ED Note [...] Appointment Date:05/19/2023 10:40:00 AM Scheduled Provider:Jaquan Paula Location:[facility] ([facility]) Appointment Type: Hospital Follow Up w/TCM Appointment Date:07/13/2023 08:20:00 AM Scheduled Provider:OLGA PRAKASH PA-C Location:[facility] Appointment Type:URO Office Visit Appointment Date:08/04/2023 09:45:00 AM Scheduled Provider:Rajni Rouse MD Location:[facility] Appointment Type:URO Office Visit Diagnostic Tests Pending * Drug Screen Urine 05/17/23 Future Scheduled Tests Radiology* US Renal 06/10/22 [facility]03-29-2024 Evaluation + Plan noteExtracted from: Title:Discharge [...] bedtime) With When Contact Information Jaquan Paula, FAM, MED Additional Instructions: Follow up with surgeon Additional Instructions: Appointment has already been scheduled Cannabinoid Hyperemesis Syndrome Nausea and Vomiting, Adult, Dgjg-eb-Yyyv Extracted from: Title:Progress Note * Author:Miguel JOHNSON, Rosalia Smith Date:05/14/23 Impression and Plan This is a 33-year-old lady with past medical history of gastric sleeve surgery in July 2020, complicated by significant reflux switch to Tan-en-Y January 2022 at [facility], [facility] surgery February 2023 which reported [...] from: Title:APSO Note Author:Moncho Trejo DO Eugenio e:05/14/2305/12-very mild increase in p .o. intake. [...] Orders Sbsq Hospital Care/Day Moderate 35 Minutes 76572 2. Intractable abdominal pain (R10.9: Unspecified abdominal [...] Bentyl, Carafate, PPI twice daily Ordered: [facility] Hospital Care/Day Moderate 35 Minutes 69309 2. Intractable abdominal pain (R10.9: Unspecified abdominal [...] reflux switch to Tan-en-Y January 2022 at [facility], MALS surgery February 2023 which reported [...] reflux switch to Tan-en-Y January 2022 at [facility], [facility] surgery February 2023 which reported [...] 2022 Author:Kuldip Arcos Jr, DO Date:05/12/23 Plan [place] [employer] Anesthesiologists (ASA) physical status classification: [...] Ordered: Initial Hospital Care/Day Moderate [address] in Status 2. Intractable abdominal pain [...] Appointment Date:05/19/2023 10:40:00 AM Scheduled Provider:Jaquan Paula Location:[facility] Appointment Type: Hospital Follow Up w/TCM Appointment Date:07/13/2023 08:20:00 AM Scheduled Provider:OLGA PRAKASH PA-C Location:[facility] Appointment Type:URO Office Visit Appointment Date:08/04/2023 09:45:00 AM Scheduled Provider:Rajni Rouse MD Location:[facility] Appointment Type:URO Office Visit Diagnostic Tests Pending * Copper Level 05/14/23 * HIV Screen 4th Generation wRfx 05/14/23 * Acute Hepatitis A B C Panel 05/14/23 Future Scheduled Tests Radiology* US Renal 06/10/22 [facility]03-29-2024 Hospital Discharge instructions Patient Education 05/14/2023 [...] as coffee and soda. Take and apply dxfe-dcx-yhngecb and prescription medicines only as told by [...] provider. Document Revised: 06/01/2022 Document Reviewed: 06/01/2022 PostRank Patient Education 2022 [employer]. 05/14/2023 11:56:24 Nausea and Vomiting, Adult, Ifdc-lj-Kuzs Nausea and Vomiting, Adult Nausea is feeling [...] fruit juice). ?Low-calorie sports drinks. Eat bland, jlgi-ac-pjidum foods in small amounts as you are able, such as: ?Bananas. ?Applesauce. ?Rice. ?Low-fat (lean) meats. ?[place]. ?Crackers. Avoid drinking fluids that have a lot of sugar or caffeine in them. This includes energy drinks, sports drinks, and soda. Avoid alcohol. Avoid spicy or fatty foods. General instructions Take rgjd-jgl-yaiabny and prescription medicines only as told by your doctor. Drink enough fluid to keep your pee (urine) pale yellow. Wash your hands often with soap and water for at least 20 seconds. If you cannot use soap and water, use hand quality control lab tech. Make sure that everyone in your home [...] your doctor about eating and drinking. Take aklc-fvn-tgijpju and prescription medicines only as told by your doctor. Contact your doctor if your symptoms get worse or you have new symptoms. Keep all follow-up visits. This information is not intended to replace advice given to you by your health care provider. Make sure you discuss any questions you have with your health care provider. Document Revised: 08/08/2021 Document Reviewed: 08/08/2021 PostRank Patient Education 2022 [employer]. Follow Up Care 05/12/2023 09:23:09 With:Patient has [facility] in [facility] Address:Unknown When: Unknown With:Jaquan Paula FAM, [facility] Address: [address] [place] [address] [facility] (1) When: Unknown With:Follow up with surgeon Address: When: Unknown Comments:Appointment has already been scheduled [facility]03-29-2024 [facility]:Result Comment: Electronically Signed By: Moncho Trejo DO\.br\Date and Time Signed: 05/14/23 12:06 [id number] [facility]Comment on above:Result Comment: Electronically Signed By: Moncho Trejo DO\.br\Date and Time Signed: 05/12/23 12:59 [id number] Hospital Discharge instructions Patient Education 05/11/2023 16:46:23 Abdominal Pain, Adult, Wnpz-ki-Mcsa Abdominal Pain, Adult Many things can cause belly (abdominal) pain. Most times, belly pain is not dangerous. Many cases of belly pain can be watched and treated at home. Sometimes, though, belly pain is serious. Your doctor will try to find the cause of your belly pain. Follow these instructions at home: Medicines Take hxot-ykf-cdnyfpc and prescription medicines only as told by [...] your belly pain for any changes. Take kkot-tsk-bocasxd and prescription medicines only as told by [...] provider. Document Revised: 06/12/2019 Document Reviewed: 06/12/2019 PostRank Patient Education 2022 [employer]. Follow Up Care 05/11/2023 11:48:15 With:Miguel JOHNSON, APRYL Bean, [facility] Address: [address] [place] [address], [address] [phone] When:2 to 4 days Comments:Call today to schedule your follow upReturn to ED if symptoms worsen [facility]03-26-2024 Evaluation + Plan noteExtracted from: Title:ED [...] Date:07/13/2023 08:20:00 AM Scheduled Provider:OLGA PRAKASH PA-C Location:[facility] Appointment Type:URO Office Visit Appointment Date:08/04/2023 09:45:00 AM Scheduled Provider:Rajni Rouse MD Location:[facility] Appointment Type:URO Office Visit Future Scheduled Tests Radiology* US Renal 06/10/22 [facility]03-25-2024 Miscellaneous Notes* Telephone Encounter - Serena Neff - 05/10/2023 2:51 PM EDT Patient scheduled with Dr. Kat on 05/11. Serena Neff APPRENTICESHIP REPRESENTATIVE Manager Card for Dr. Kat * Telephone Encounter - [...] be seen by Dr. Kat. Serena Neff APPRENTICESHIP REPRESENTATIVE Manager Card for Dr. Kat * Telephone Encounter - Dorita Manning - 05/10/2023 10:44 AM EDT Patients calling concerned about Abbey. She has been in the ER 2 times in the last 4 days. She was told to speak to DR who originally put her on TPN to discuss getting back on it. CB# [phone] documented in this encounterGreene Memorial Hospital03-24-2024 Hospital Discharge instructions Patient Education 05/09/2023 [...] Follow these instructions at home: Medicines Take kwjh-fag-txfgoje and prescription medicines only as told by [...] Watch your condition for any changes. Take qxaa-zhe-pjznbtk and prescription medicines only as told by [...] provider. Document Revised: 03/22/2020 Document Reviewed: 06/12/2019 PostRank Patient Education 2022 [employer]. Follow Up Care 05/09/2023 11:38:04 With:Earnest Oakes Address: [address], [address] [phone] Business (1) When:05/12/2023 15:51:27 With:Jon Rivera Address: [address], [address] [phone] Business (1) When:05/12/2023 15:51:00 With:Jaquan Morrow Address: [address] [place] [address]- Business (1) When:05/12/2023 15:50:53 [facility]03-24-2024 Evaluation + Plan noteExtracted from: Title:ED [...] Date:07/13/2023 08:20:00 AM Scheduled Provider:OLGA PRAKASH PA-C Location:[facility] Appointment Type:URO Office Visit Appointment Date:08/04/2023 09:45:00 AM Scheduled Provider:Nasim JOHNSON, Rajni Ballesteros Location:[facility] Appointment Type:URO Office Visit Future Scheduled Tests Radiology* US Renal 06/10/22 [facility]03-22-2024 Miscellaneous Notes* Telephone Encounter - Yvette Morgan - 05/07/2023 11:07 AM EDT Procedure canceled * Telephone Encounter - Santa Hart RN - 05/07/2023 10:47 AM EDT Patient is keeping 07/20/2023 Upper endoscopy appointment and wishes to cancel 05/14/2023 EGD appointment. Scheduling notified. documented in this encounterGreene Memorial Hospital03-21-2024 Hospital Discharge instructions Patient Education 05/06/2023 [...] Follow these instructions at home: Medicines Take avyu-swf-pdvmqfu and prescription medicines only as told by [...] Watch your condition for any changes. Take alvj-pxu-gduusbc and prescription medicines only as told by [...] provider. Document Revised: 03/22/2020 Document Reviewed: 06/12/2019 PostRank Patient Education 2022 [employer]. Follow Up Care 05/06/2023 15:41:48 With:Follow-up with your surgeon at soon as possible, call the office tomorrow to schedule an appointment. Return to the ER with any new or worsening symptoms. Address:Unknown When: Unknown With:Jaquan Morrow Address:Unknown When:Within 3 Day(s) [facility]03-13-2024 History of Present illness Narrative* Kasie [...] race variable for the IDMS-Traceable creatinine methods. https://jasn.asnjournals.org/content/early//ASN.8677739919 Calcium 8.5 - 10.4 mg/dL 8.7 Albumin [...] the body of the stomach FINAL DIAGNOSIS [facility] STOMACH ANTRUM, BIOPSY: Erosive chronic [...] healthy appearing mucosa. This was traversed. The awdyi-yu-ugkcoyz limb was characterized by healthy appearing mucosa. [...] healthy appearing mucosa. This was traversed. The gekqq-vp-kxxpgcm limb was characterized by healthy appearing mucosa. The jejunojejunal anastomosis was characterized by healthy appearing mucosa. The examined jejunum was normal. Impression: - Normal esophagus. - Tan-en-Y gastrojejunostomy with gastrojejunal anastomosis characterized by healthy appearing mucosa. No ulceration or stenosis. - Normal examined jejunum. - No specimens collected. Upper GI SERIES 03/17/23 FINDINGS: Research Consultant images demonstrate postsurgical changes from previous Tan-en-Y [...] destructive bone lesions. CT ABD/PEL 12/06/22 ABDOMEN: Research Consultant (topogram) images: No additional findings. Images of [...] which included preparing to see the patient, bbhc-qr-dxre patient care, completing clinical documentation, obtaining and/or reviewing separately obtained history, performing a medically appropriate examination, counseling and educating the pat ient/family/caregiver, and ordering medications, tests, or procedures. Kasie Avalos MD April 22, 2023 2:06 PM documented in this encounterGreene Memorial Hospital03-13-2024 NoteC[facility]02-21-2024 History of Present illness Narrative* Sherry Magaña [...] with her bariatric surgeon at [facility]. I will follow-up with her in 2 weeks by telephone. documented in this encounterFlower Hospital Work Phone: 1(488) 604-937102-21-2024 [facility]02-21-2024 History of Present illness Narrative* Deacon Kat MD - 04/07/2023 1:48 PM EST VIRTUAL VISIT PROGRESS NOTE This is a virtual visit using Runcomt Zoom Video Visit. It required patient- provider interaction for the medical decision making as documented below. I have communicated my name and active licensure. The patient's identity and physical location wereverified at the time of this visit. Either the patient or their legal union representative has been informed of the risks [...] She had a recent EGD through the [employer] system which I was able to obtain [...] Low Deacon Kat MD documented in this encounterGreene Memorial Hospital02-16-2024 Hospital Discharge instructions Patient Education 04/02/2023 [...] Follow these instructions at home: Medicines Take qtwp-lni-mqxbpio and prescription medicines only as told by [...] provider. Document Revised: 04/17/2021 Document Reviewed: 04/17/2021 PostRank Patient Education 2022 [employer]. 04/02/2023 17:02:34 Abdominal Pain, Adult Abdominal Pain, [...] Follow these instructions at home: Medicines Take qvlc-wra-zhoxsqx and prescription medicines only as told by [...] Watch your condition for any changes. Take pgfo-pue-rigbomg and prescription medicines only as told by [...] provider. Document Revised: 03/22/2020 Document Reviewed: 06/12/2019 PostRank Patient Education 2022 [employer]. Follow Up Care 04/02/2023 10:53:50 With:Jon Rivera Address: [address] [place] [phone]- [phone] Business (1) When:04/05/2023 16:23:56 Comments:Make sure to follow-up with your primary doctor and your surgeon. Follow-up with Dr. Rivera for the GI. Return to the emergency room if your pain gets worse or any new symptoms. With:Jaquan Morrow Address:Unknown When:Within 3 Day(s) [facility]02-16-2024 Evaluation + Plan noteExtracted from: Title:ED Note Author:Jose Ramon Martinez, Ashutosh Arroyo te:04/02/23 1. Chest pain (R07.9: Chest pain, unspecified) 2. Abdominal pain (R10.9: Unspecified abdominal pain) Orders: dicyclomine, 20 mg = 2 cap(s), Oral, QID, # 20 cap(s), Refills(s) 0, Pharmacy: [facility]/pharmacy #[id number], 167, cm, 04/02/23 11:01:00 EST, Height/Length Dosing, [...] nausea/vomiting, # 16 tab(s), Refills(s) 0, Pharmacy: [facility]/pharmacy #[id number], 167, cm, 04/02/23 11:01:00 EST, [...] day(s), # 560 mL, Refills(s) 0, Pharmacy: [facility]/pharmacy #[id number], 167, cm, 04/02/23 11:01:00 EST, [...] Date:08/04/2023 09:45:00 AM Scheduled Provider:Rajni Rouse MD Location:[facility] Appointment Type:URO Office Visit Future Scheduled Tests Radiology* US Renal 06/10/22 [facility]02-03-2024 Nurse Note* Stacie Blanco RN - 03/20/2023 4:41 PM EST Patient discharged home to care of self and . Patient transported to front entrance via wheelchair. No injuries, bleeding or distress noted. [facility]02-03-20[facility] Nurse Note* Stacie Blanco RN - [...] of NG tube. Order received. Waiting on hemodialysis technician to verify placement per order. Will [...] per to re insert NG tube and insurance licensing supervisor to low suction. Will re attempt with patients consent. * Cathy Madera RN - 03/17/2023 12:06 PM EST Patient transported to Xray for placement of NG. Patient off unit. * Cathy Madera RN - 03/17/2023 11:44 AM EST This nurse notified business services tech that patient had NG tube placed and needed Xray for placement verification. This nurse messaged Rosa YUN to notify her that NG tube was placed and needed separate order for NG tube placement per business services tech. Order received. Will continue to monitor [...] to ensure patient safety. documented in this [facility] Work Phone: 1(557) 657-409402-03-2024 Nurse Note* Stacie Blanco RN - 03/20/2023 4:01 PM EST Provided/explained discharge instructions and summary. Provided opportunity for questions and discussion. No complaints or concerns communicated. [facility] Work Phone: 1(345) 397-273802-03-2024 History of Present illness Narrative* Nathalie Tyler RN - 03/20/2023 3:35 PM EST Patient is medically ready for discharge. Per previous md do resident urgent care, plan for home with home health care. Message to provider that external home care referral is needed. UPDATE 1549: Discharging provider indicates no continued skilled needs for home care. Per bedside nurse May, patient is in agreement that she no longer needs home health care services. Referral to [facility] updated and closed. Patient will discharge no with no reported skilled needs. * Lizz Brunson APRN-BETH - 03/20/2023 11:40 AM EST Abbey Garcia [...] Tomasa Keyes RN 03/19/2023 1431 Procedure [address] [phone] Referring Provider Generic Provider [place] No address on file Procedure Provider No [...] anesthesia. Overall clinically improving. JAMA Smith * Jason Borja JAMA Foster - 03/20/2023 11:17 AM EST Abbey Garcia [...] 03/17/2023 done at 2:05 p.m. ACCESSION NUMBER(S): [id number] ORDERING CLINICIAN: TIFFANIE MENDEZ TECHNIQUE: AP erect view of the chest FINDINGS: The nasogastric tube has not ch anged in placement with the tip seen within the proximal thoracic esophagus. Heart and mediastinum are normally visualized. Lungs are clear. Distal tip of nasogastric tube in proximal thoracic esophagus just above the aortic arch. Signed by: Nya Ahmadi 03/17/2023 8:19 PM Dictation workstation: [id number] FL upper GI w double contrast w small bowel follow through Result Date: 03/17/2023 Interpreted By: Corie Garza, STUDY: FL UPPER GI W DOUBLE CONTRAST W SMALL BOWEL FOLLOW THROUGH; 03/17/2023 4:40 pm INDICATION: Signs/Symptoms:abdominal pain. COMPARISON: None. ACCESSION NUMBER(S): [id number] ORDERING CLINICIAN: TIFFANIE MENDEZ TECHNIQUE: Multiple fluoroscopic spot images were obtained during a single contrast upper GI with KUB. Total fluoroscopy time: 1 minute 32 seconds Radiation exposure (Reference Air Kerma): 99.36 mGy Images: 2 spot images 7 series and 2 delayed AP viewsof the abdomen FINDINGS: Research Consultant images demonstrate postsurgical changes from previous Tan-en-Y [...] Corie Garza 03/17/2023 5:00 PM Dictation workstation: [id number] XR chest 1 view Result Date: 03/17/2023 Interpreted By: Corie Garza, STUDY: XR CHEST 1 VIEW; 03/17/2023 12:41 pm INDICATION: Signs/Symptoms:Status post NG tube placement. COMPARISON: None available ACCESSION NUMBER(S): [id number] ORDERING CLINICIAN: TIFFANIE MENDEZ FINDINGS: RESULT: Nasogastric [...] Corie Garza 03/17/2023 4:19 PM Dictation workstation: [id number] CT abdomen pelvis w IV contrast Result Date: 03/16/2023 Interpreted By: Corie Garza, STUDY: CT ABDOMEN PELVIS W IV CONTRAST; 03/16/2023 5:27 pm INDICATION: Signs/Symptoms:abdominal pain - with oral and IV contrast. COMPARISON: None.. ACCESSION NUMBER(S): [id number] ORDERING CLINICIAN: TIFFANIE MENDEZ TECHNIQUE: Oral contrast [...] Corie Garza 03/16/2023 5:46 PM Dictation workstation: [id number] XR chest 1 view Result Date: 03/06/2023 Interpreted By: Sara Zarate, STUDY: XR CHEST 1 VIEW; 03/06/2023 7:32 am INDICATION: Signs/Symptoms:post op COMPARISON: None ACCESSION NUMBER(S): [id number] ORDERING CLINICIAN: JASON FOSTER TECHNIQUE: Frontal and [...] Sara Zarate 03/06/2023 1:48 PM Dictation workstation: [id number] XR chest 1 view Result Date: 03/05/2023 Interpreted By: Baldomero Hendrickson, STUDY: XR CHEST 1 VIEW; 03/05/2023 3:11 pm INDICATION: CLINICAL INFORMATION: Signs/Symptoms:NG tube placement confirmation. COMPARISON: 03/05/2019 at 745 hours ACCESSION NUMBER(S): [id number] ORDERING CLINICIAN: DESMOND TIRADO TECHNIQUE: Portable chest [...] Baldomero Hendrickson 03/05/2023 3:31 PM Dictation workstation: [id number] XR chest 1 view Result Date: 03/05/2023 Interpreted By: Nya Ahmadi, STUDY: XR CHEST 1 VIEW 03/05/2023 7:51 am INDICATION: Signs/Symptoms:confirm line placement COMPARISON: None available. ACCESSION NUMBER(S): [id number] ORDERING CLINICIAN: SERENA GEORGE TECHNIQUE: AP erect view of the chest FINDINGS: Right arm PICC line terminates in the SVC. There is no pneumothorax. The heart, mediastinum, and lungs are normally visualized. Right arm PICC line terminating in SVC without pneumothorax. No acute cardiopulmonary disease. Signed by: Nya Ahmadi 03/05/2023 7:54 AM Dictation workstation: [id number] Assessment/Plan Principal Problem: Abdominal pain NV, Epigastric [...] later today with Dr. Agosto. Dr. Jah Dranell to observe EGD and make recommendations. He [...] Tomasa Keyes RN 03/19/2023 1431 Procedure Location [address] [address] Referring Provider Generic Provider [place] No address on file Procedure Provider No name on file XR chest 1 view Result Date: 03/17/2023 Interpreted By: Nya Ahmadi, STUDY: XR CHEST 1 VIEW 03/17/2023 7:09 pm INDICATION: Signs/Symptoms:S/p NG placement COMPARISON: 03/17/2023 done at 2:05 p.m. ACCESSION NUMBER(S): [id number] ORDERING CLINICIAN: TIFFANIE MENDEZ TECHNIQUE: AP erect view of the chest FINDINGS: The nasogastric tube has not ch anged in placement with the tip seen within the proximal thoracic esophagus. Heart and mediastinum are normally visualized. Lungs are clear. Distal tip of nasogastric tube in proximal thoracic esophagus just above the aortic arch. Signed by: Nya Ahmadi 03/17/2023 8:19 PM Dictation workstation: [id number] FL upper GI w double contrast w small bowel follow through Result Date: 03/17/2023 Interpreted By: Corie Garza, STUDY: FL UPPER GI W DOUBLE CONTRAST W SMALL BOWEL FOLLOW THROUGH; 03/17/2023 4:40 pm INDICATION: Signs/Symptoms:abdominal pain. COMPARISON: None. ACCESSION NUMBER(S): [id number] ORDERING CLINICIAN: TIFFANIE MENDEZ TECHNIQUE: Multiple fluoroscopic spot images were obtained during a single contrast upper GI with KUB. Total fluoroscopy time: 1 minute 32 seconds Radiation exposure (Reference Air Kerma): 99.36 mGy Images: 2 spot images 7 series and 2 delayed AP viewsof the abdomen FINDINGS: Research Consultant images demonstrate postsurgical changes from previous Tan-en-Y [...] Corie Garza 03/17/2023 5:00 PM Dictation workstation: [id number] XR chest 1 view Result Date: 03/17/2023 Interpreted By: Corie Garza, STUDY: XR CHEST 1 VIEW; 03/17/2023 12:41 pm INDICATION: Signs/Symptoms:Status post NG tube placement. COMPARISON: None available ACCESSION NUMBER(S): [id number] ORDERING CLINICIAN: TIFFANIE MENDEZ FINDINGS: RESULT: Nasogastric [...] Corie Garza 03/17/2023 4:19 PM Dictation workstation: [id number] CT abdomen pelvis w IV contrast Result Date: 03/16/2023 Interpreted By: Corie Garza, STUDY: CT ABDOMEN PELVIS W IV CONTRAST; 03/16/2023 5:27 pm INDICATION: Signs/Symptoms:abdominal pain - with oral and IV contrast. COMPARISON: None.. ACCESSION NUMBER(S): [id number] ORDERING CLINICIAN: TIFFANIE MENDEZ TECHNIQUE: Oral contrast [...] Corie Garza 03/16/2023 5:46 PM Dictation workstation: [id number] XR chest 1 view Result Date: 03/06/2023 Interpreted By: Sara Zarate, STUDY: XR CHEST 1 VIEW; 03/06/2023 7:32 am INDICATION: Signs/Symptoms:post op COMPARISON: None ACCESSION NUMBER(S): [id number] ORDERING CLINICIAN: JASON FOSTER TECHNIQUE: Frontal and [...] Sara Zarate 03/06/2023 1:48 PM Dictation workstation: [id number] XR chest 1 view Result Date: 03/05/2023 Interpreted By: Baldomero Hendrickson, STUDY: XR CHEST 1 VIEW; 03/05/2023 3:11 pm INDICATION: CLINICAL INFORMATION: Signs/Symptoms:NG tube placement confirmation. COMPARISON: 03/05/2019 at 745 hours ACCESSION NUMBER(S): [id number] ORDERING CLINICIAN: DESMOND TIRADO TECHNIQUE: Portable chest [...] Baldomero Hendrickson 03/05/2023 3:31 PM Dictation workstation: [id number] XR chest 1 view Result Date: 03/05/2023 Interpreted By: Nya Ahmadi, STUDY: XR CHEST 1 VIEW 03/05/2023 7:51 am INDICATION: Signs/Symptoms:confirm line placement COMPARISON: None available. ACCESSION NUMBER(S): [id number] ORDERING CLINICIAN: SERENA GEORGE TECHNIQUE: AP erect view of the chest FINDINGS: Right arm PICC line terminates in the SVC. There is no pneumothorax. The heart, mediastinum, and lungs are normally visualized. Right arm PICC line terminating in SVC without pneumothorax. No acute cardiopulmonary disease. Signed by: Nya Ahmadi 03/05/2023 7:54 AM Dictation workstation: [id number] Assessment/Plan -Abdominal pain/nausea -Median arcuate ligament syndrome, [...] deferto her bariatric surgeon, Dr. Morel, at [place]. Will sign off. Kurt Matos MD * Anam Davila RN - 03/19/2023 3:11 PM EST Abbey Garcia is a 32 y.o. female on day 3 of admission presenting with Abdominal pain. Met with patient at bedside. Patient states she has been active with [facility] in [place] . Patient would like to continue HHC with [facility]. Referral was sent. EGD scheduled today. Has NG in place. [facility] is able to accept for STEF. NG discontinued. On clear liquids. WILL NEED AND EXTERNAL REFERRAL FOR RESUMPTION OF HHC. Anam M Giovanni, RN * Shelley Nash, PAPER SORTER AND COUNTER-OPERATIONAL TRAINER - 03/19/2023 12:32 PM EST Abbey Garcia [...] her usual [facility] surgeons after DC. 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 MVI, B12. I spent 15 minutes in the professional and overall care of this patient. Shelley Nash, SLIM-BETH * JAMA Smith - 03/19/2023 10:09 AM [...] 03/17/2023 done at 2:05 p.m. ACCESSION NUMBER(S): [id number] ORDERING CLINICIAN: TIFFANIE MENDEZ TECHNIQUE: AP erect view of the chest FINDINGS: The nasogastric tube has not changed in placement with the tip seen within the proximal thoracic esophagus. Heart and mediastinum are normally visualized. Lungs are clear. Impression: Distal tip of nasogastric tube in proximal thoracic esophagus just above the aortic arch. Signed by: Nya Ahmadi 03/17/2023 8:19 PM Dictation workstation: [id number] FL upper GI w double contrast w small bowel follow through Narrative: Interpreted By: Corie Garza, STUDY: FL UPPER GI W DOUBLE CONTRAST W SMALL BOWEL FOLLOW THROUGH; 03/17/2023 4:40 pm INDICATION: Signs/Symptoms:abdominal pain. COMPARISON: None. ACCESSION NUMBER(S): [id number] ORDERING CLINICIAN: TIFFANIE MENDEZ TECHNIQUE: Multiple fluoroscopic spot images were obtained during a single contrast upper GI with KUB. Total fluoroscopy time: 1 minute 32 seconds Radiation exposure (Reference Air Kerma): 99.36 mGy Images: 2 spot images 7 series and 2 delayed AP views of the abdomen FINDINGS: Research Consultant images demonstrate postsurgical changes from previous Tan-en-Y [...] Corie Garza 03/17/2023 5:00 PM Dictation workstation: [id number] XR chest 1 view Narrative: Interpreted By: Corie Garza, STUDY: XR CHEST 1 VIEW; 03/17/2023 12:41 pm INDICATION: Signs/Symptoms:Status post NG tube placement. COMPARISON: None available ACCESSION NUMBER(S): [id number] ORDERING CLINICIAN: TIFFANIE MENDEZ FINDINGS: RESULT: Nasogastric [...] Corie Garza 03/17/2023 4:19 PM Dictation workstation: [id number] Physical Exam Vitals and nursing note reviewed. [...] her usual [facility] surgeons after DC. 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 MVI, B12. I spent 15 minutes in [...] glasses. Pts PCP is Dr Marino with [facility], prescriptions filled through [facility] in [place]. Uncertain if pt will have dc needs. Her last admit she went home with [facility]. TCC to follow ongoing medical workup. Safe dc plan not secured-TCC to follow Sabina Hurd MSSA, ARCHITECTURE INSTRUCTOR * JAMA Smith - 03/18/2023 10:57 AM [...] 03/17/2023 done at 2:05 p.m. ACCESSION NUMBER(S): [id number] ORDERING CLINICIAN: TIFFANIE MENDEZ TECHNIQUE: AP erect view of the chest FINDINGS: The nasogastric tube has not changed in placement with the tip seen within the proximal thoracic esophagus. Heart and mediastinum are normally visualized. Lungs are clear. Impression: Distal tip of nasogastric tube in proximal thoracic esophagus just above the aortic arch. Signed by: Nya Ahmadi 03/17/2023 8:19 PM Dictation workstation: [id number] FL upper GI w double contrast w small bowel follow through Narrative: Interpreted By: Corie Garza, STUDY: FL UPPER GI W DOUBLE CONTRAST W SMALL BOWEL FOLLOW THROUGH; 03/17/2023 4:40 pm INDICATION: Signs/Symptoms:abdominal pain. COMPARISON: None. ACCESSION NUMBER(S): [id number] ORDERING CLINICIAN: TIFFANIE MENDEZ TECHNIQUE: Multiple fluoroscopic spot images were obtained during a single contrast upper GI with KUB. Total fluoroscopy time: 1 minute 32 seconds Radiation exposure (Reference Air Kerma): 99.36 mGy Images: 2 spot images 7 series and 2 delayed AP views of the abdomen FINDINGS: Research Consultant images demonstrate postsurgical changes from previous Tan-en-Y [...] Corie Garza 03/17/2023 5:00 PM Dictation workstation: [id number] XR chest 1 view Narrative: Interpreted By: Corie Garza, STUDY: XR CHEST 1 VIEW; 03/17/2023 12:41 pm INDICATION: Signs/Symptoms:Status post NG tube placement. COMPARISON: None available ACCESSION NUMBER(S): [id number] ORDERING CLINICIAN: TIFFANIE MENDEZ FINDINGS: RESULT: Nasogastric [...] Corie Garza 03/17/2023 4:19 PM Dictation workstation: [id number] Physical Exam Vitals and nursing note reviewed. [...] 03/17/2023 done at 2:05 p.m. ACCESSION NUMBER(S): [id number] ORDERING CLINICIAN: TIFFANIE MENDEZ TECHNIQUE: AP erect view of the chest FINDINGS: The nasogastric tube has not ch anged in placement with the tip seen within the proximal thoracic esophagus. Heart and mediastinum are normally visualized. Lungs are clear. Distal tip of nasogastric tube in proximal thoracic esophagus just above the aortic arch. Signed by: Nya Ahmadi 03/17/2023 8:19 PM Dictation workstation: [id number] FL upper GI w double contrast w small bowel follow through Result Date: 03/17/2023 Interpreted By: Corie Garza, STUDY: FL UPPER GI W DOUBLE CONTRAST W SMALL BOWEL FOLLOW THROUGH; 03/17/2023 4:40 pm INDICATION: Signs/Symptoms:abdominal pain. COMPARISON: None. ACCESSION NUMBER(S): [id number] ORDERING CLINICIAN: TIFFANIE MENDEZ TECHNIQUE: Multiple fluoroscopic spot images were obtained during a single contrast upper GI with KUB. Total fluoroscopy time: 1 minute 32 seconds Radiation exposure (Reference Air Kerma): 99.36 mGy Images: 2 spot images 7 series and 2 delayed AP viewsof the abdomen FINDINGS: Research Consultant images demonstrate postsurgical changes from previous Tan-en-Y [...] Corie Garza 03/17/2023 5:00 PM Dictation workstation: [id number] XR chest 1 view Result Date: 03/17/2023 Interpreted By: Corie Garza, STUDY: XR CHEST 1 VIEW; 03/17/2023 12:41 pm INDICATION: Signs/Symptoms:Status post NG tube placement. COMPARISON: None available ACCESSION NUMBER(S): [id number] ORDERING CLINICIAN: TIFFANIE MENDEZ FINDINGS: RESULT: Nasogastric [...] Corie Garza 03/17/2023 4:19 PM Dictation workstation: [id number] CT abdomen pelvis w IV contrast Result Date: 03/16/2023 Interpreted By: Corie Garza, STUDY: CT ABDOMEN PELVIS W IV CONTRAST; 03/16/2023 5:27 pm INDICATION: Signs/Symptoms:abdominal pain - with oral and IV contrast. COMPARISON: None.. ACCESSION NUMBER(S): [id number] ORDERING CLINICIAN: TIFFANIE MENDEZ TECHNIQUE: Oral contrast [...] Corie Garza 03/16/2023 5:46 PM Dictation workstation: [id number] Assessment/Plan Abdominal pain, nausea, chronic intolerance to [...] discuss EGD with Dr. Agosto tomorrow. Daisy Montero APRN-BETH * Deepika Roy APRN-BETH - 03/18/2023 8:50 AM EST Abbey Garcia [...] 03/17/2023 done at 2:05 p.m. ACCESSION NUMBER(S): [id number] ORDERING CLINICIAN: TIFFANIE MENDEZ TECHNIQUE: AP erect view of the chest FINDINGS: The nasogastric tube has not ch anged in placement with the tip seen within the proximal thoracic esophagus. Heart and mediastinum are normally visualized. Lungs are clear. Distal tip of nasogastric tube in proximal thoracic esophagus just above the aortic arch. Signed by: Nya Ahmadi 03/17/2023 8:19 PM Dictation workstation: [id number] FL upper GI w double contrast w small bowel follow through Result Date: 03/17/2023 Interpreted By: Corie Garza, STUDY: FL UPPER GI W DOUBLE CONTRAST W SMALL BOWEL FOLLOW THROUGH; 03/17/2023 4:40 pm INDICATION: Signs/Symptoms:abdominal pain. COMPARISON: None. ACCESSION NUMBER(S): [id number] ORDERING CLINICIAN: TIFFANIE MENDEZ TECHNIQUE: Multiple fluoroscopic spot images were obtained during a single contrast upper GI with KUB. Total fluoroscopy time: 1 minute 32 seconds Radiation exposure (Reference Air Kerma): 99.36 mGy Images: 2 spot images 7 series and 2 delayed AP viewsof the abdomen FINDINGS: Research Consultant images demonstrate postsurgical changes from previous Tan-en-Y [...] Corie Garza 03/17/2023 5:00 PM Dictation workstation: [id number] XR chest 1 view Result Date: 03/17/2023 Interpreted By: Corie Garza, STUDY: XR CHEST 1 VIEW; 03/17/2023 12:41 pm INDICATION: Signs/Symptoms:Status post NG tube placement. COMPARISON: None available ACCESSION NUMBER(S): [id number] ORDERING CLINICIAN: TIFFANIE MENDEZ FINDINGS: RESULT: Nasogastric [...] Corie Garza 03/17/2023 4:19 PM Dictation workstation: [id number] CT abdomen pelvis w IV contrast Result Date: 03/16/2023 Interpreted By: Corie Garza, STUDY: CT ABDOMEN PELVIS W IV CONTRAST; 03/16/2023 5:27 pm INDICATION: Signs/Symptoms:abdominal pain - with oral and IV contrast. COMPARISON: None.. ACCESSION NUMBER(S): [id number] ORDERING CLINICIAN: TIFFANIE MENDEZ TECHNIQUE: Oral contrast [...] Corie Garza 03/16/2023 5:46 PM Dictation workstation: [id number] XR chest 1 view Result Date: 03/06/2023 Interpreted By: Sara Zarate, STUDY: XR CHEST 1 VIEW; 03/06/2023 7:32 am INDICATION: Signs/Symptoms:post op COMPARISON: None ACCESSION NUMBER(S): [id number] ORDERING CLINICIAN: JASON FOSTER TECHNIQUE: Frontal and [...] Sara Zarate 03/06/2023 1:48 PM Dictation workstation: [id number] XR chest 1 view Result Date: 03/05/2023 Interpreted By: Baldomero Hendrickson, STUDY: XR CHEST 1 VIEW; 03/05/2023 3:11 pm INDICATION: CLINICAL INFORMATION: Signs/Symptoms:NG tube placement confirmation. COMPARISON: 03/05/2019 at 745 hours ACCESSION NUMBER(S): [id number] ORDERING CLINICIAN: DESMOND TIRADO TECHNIQUE: Portable chest [...] Baldomero Hendrickson 03/05/2023 3:31 PM Dictation workstation: [id number] XR chest 1 view Result Date: 03/05/2023 Interpreted By: Nya Ahmadi, STUDY: XR CHEST 1 VIEW 03/05/2023 7:51 am INDICATION: Signs/Symptoms:confirm line placement COMPARISON: None available. ACCESSION NUMBER(S): [id number] ORDERING CLINICIAN: SERENA GEORGE TECHNIQUE: AP erect view of the chest FINDINGS: Right arm PICC line terminates in the SVC. There is no pneumothorax. The heart, mediastinum, and lungs are normally visualized. Right arm PICC line terminating in SVC without pneumothorax. No acute cardiopulmonary disease. Signed by: Nya Ahmadi 03/05/2023 7:54 AM Dictation workstation: [id number] Assessment/Plan Principal Problem: Abdominal pain NV, Epigastric [...] and IV contrast. COMPARISON: None.. ACCESSION NUMBER(S): [id number] ORDERING CLINICIAN: TIFFANIE MENDEZ TECHNIQUE: Oral contrast [...] Corie Garza 03/16/2023 5:46 PM Dictation workstation: [id number] Physical Exam Vitals and nursing note reviewed. [...] in her local emergency room out in [place]. She was discharged after her nausea was relieved last night but this nausea recurred and she was transferred here. I suspect given adequate pain control and control of her nausea that once the inflammation of her surgery resolves she will feel much better. Pancreatitis and bowel ischemia have been ruled out through lab testing and noncontrast CT done yesterday in [place]. I am going to get a CT scan with IV andoral contrast today and start IV fluids and antiemetics as well as analgesics. Unless she starts taking p.o.'s well I will likely place a feeding tube and start enteral feedings during this hospitalization. She will be getting a gastroenterology consultation as well as a foregut surgery consultation. documented in this [facility] Work Phone: 1(903) 938-569502-03-2024 Hospital Discharge instructions* Discharge Instructions* Jason Foster PAPER SORTER AND COUNTER-OPERATIONAL TRAINER - 03/20/2023 3:21 PM EST What to [...] up in 1-2 weeks documented in this [facility] Work Phone: 1(875) 689-383002-02-2024 Plan of care note* Care Plan - [...] pain meds throughout the shift Outcome: Progressing [facility]02-02-2024 Miscellaneous Notes* Care Plan - Nathalie [...] issue which will be best done at [facility] either as inpatient or outpatient, where she has ongoing work, or is a postoperative situation that has been discussed multiple times with the primary operating service (and I have discussed with Tiffanie Mendez CNP with their service and there appears to be a good plan for imaging studies), and can ba admitted by their service). documented in this [facility] Work Phone: 1(821) 816-805702-02-2024 Plan of care note* Care Plan - [...] include. Recommendations to address these barriers include. [facility]02-01-2024 Plan of care note* Care Plan - [...] meds throughout the shift Outcome: Progressing [facility] Work Phone: 1(913) 952-525702-01-2024 Nurse Note* Andie Lugo RN - 03/18/2023 4:47 PM EST Pt resting quietly in bed, no distres noted [facility]02-01-2024 Nurse Note* Andie Lugo RN - 03/18/2023 3:17 PM EST Pt given IS and instructed how to use, pt verbalized understanding [facility] Work Phone: [phone]) 850-641802-01-2024 Nurse Note* Andie Lugo RN - 03/18/2023 2:50 PM EST Ronnie foster cnp into see pt [facility] Work Phone: 1([phone]) 800-687702-01-2024 Consult note* Nabila Moore RDN, SALVADOR - [...] 2 mg, 2 mg, intravenous, q4h PRN, JAAM Smith, 2 mg at 03/18/23 140 ondansetron [...] Energy Needs Total Energy Estimated Needs (kCal): (6640-3441 kcals) Total Estimated Energy Need per Day (kCal/kg): (25-30 kcals/kg) Method for Estimating Needs: adjusted IBW Estimated Protein Needs Total Protein Estimated Needs (g): (68-81g Protein) Total Protein Estimated Needs (g/kg): (1-1.2 g/kg) Method for Estimating Needs: adjusted IBW Estimated Fluid Needs Total Fluid Estimated Needs (mL): (9827-3222 mL fluid) Method for Estimating Needs: 1 [...] Prescription: Individualized Nutrition Prescription Provided for : 7465-1772 kcals, 68-81g Protein, 7919-0236 mL fluid, provided via PO/NG, once diet advanced. Nutrition Interventions: Food and/or Nutrient Delivery Interventions Interventions: Enteral intake Enteral Intake: Modify composition of enteral nutrition, Modify rate of enteral nutrition Goal: When able to initiate Tube feeding, recommend Osmolite 1.5 @ goal rate of 45 mL/hr to [id number] kcals, 68g Protein, and 823 mL free [...] Needed?: 3-5 days Follow up Comment: 03/22/23 [facility]02-01-2024 Consult note* Nabila Moore RDN, LD [...] Energy Needs Total Energy Estimated Needs (kCal): (3309-8701 kcals) Total Estimated Energy Need per Day (kCal/kg): (25-30 kcals/kg) Method for Estimating Needs: adjusted IBW Estimated Protein Needs Total Protein Estimated Needs (g): (68-81g Protein) Total Protein Estimated Needs (g/kg): (1-1.2 g/kg) Method for Estimating Needs: adjusted IBW Estimated Fluid Needs Total Fluid Estimated Needs (mL): (8941-1791 mL fluid) Method for Estimating Needs: 1 [...] Prescription: Individualized Nutrition Prescription Provided for : 6171-7437 kcals, 68-81g Protein, 2457-2474 mL fluid, provided via PO/NG, once diet advanced. Nutrition Interventions: Food and/or Nutrient Delivery Interventions Interventions: Enteral intake Enteral Intake: Modify composition of enteral nutrition, Modify rate of enteral nutrition Goal: When able to initiate Tube feeding, recommend Osmolite 1.5 @ goal rate of 45 mL/hr to [id number] kcals, 68g Protein, and 823 mL free [...] with liver biopsy in April 2020 at [facility] in evaluation of her chronic abdominal pain and intermittent food intolerance. She had a vertical sleeve gastrectomy at [facility] on September 03, 2020 for morbid obesity. She had a diagnostic laparoscopy on March 20, 2021 at [facility] for chronic pain thought to be secondary to an abdominal wall hernia. No hernia was seen at laparoscopy. She complained of gastroesophageal reflux disease and had her vertical sleeve gastrectomy converted to Tan-en-Y gastric bypass at [facility] on January 29, 2022. On March 06, 2022 she had an upper endoscopy at [facility] for epigastric abdominal pain. Her gastrojejunostomy was congested, edematous, with erosions and friable mucosa. The anastomosis was dilated and she was discharged on twice daily PPI. She had an upper endoscopy at [facility] onJune 23, 2022 for epigastric pain. At that time her gastrojejunostomy appeared normal. She continued to complain of abdominal pain and had an upper endoscopy at the [facility] on October 27, 2022. She was found to have food in her stomach and jejunum. There was no evidence of gastrojejunal ulcer. On November 11, 2022 she had laparoscopic closure of internal hernia at the jejunojejunostomy and ERCP through her gastric remnant for her abdominal pain. She was hospitalized at the [facility] on December 06, 2022 for [...] by laparotomy on March 05, 2023 at [facility]. She was discharged to home on March 10, 2023. She reported to me that on Monday, March 13, 2023 she began having difficulty [...] medical history of MARSHAL (acute kidney injury) ([facility]/HCC), Autoimmune disorder ([facility]/HCC), Bipolar disorder ([facility]/HCC), BPH (benign prostatic hyperplasia), Cerebral aneurysm, Cervical cancer ([facility]/HCC), Cervical disc disease, Chronic kidney disease, CKD (chronic kidney disease), Cognitivedecline, Crohn's disease ([facility]/HCC), Dementia ([facility]/HCC), Dysphagia, Endometrial cancer ([facility]/HCC), Esophageal cancer ([facility]/HCC), Esophageal disease, ESRD (end stage renal disease) ([facility]/HCC), Fibromyalgia, primary, Fractures, Gastric cancer ([facility]/HCC), Gender dysphoria, GI (gastrointestinal bleed), Hemodialysis status ([facility]/HCC), Hernia, internal, History of peritoneal dialysis, HIV disease ([facility]/HCC), Immunocompromised ([facility]/HCC), Liver disease, Lumbar disc disease, Mastocytosis, MS (multiple sclerosis) ([facility]/HCC), Muscular dystrophy ([facility]/HCC), Myasthenia gravis ([facility]/HCC), Neuromuscular disorder ([facility]/HCC), Ovarian cancer ([facility]/HCC), Pancreatitis, Peptic ulcer disease, Prematurity, PTSD (post-traumatic stress disorder), Schizophrenia ([facility]/HCC), Seizure disorder ([facility]/HCC), Spinal stenosis, Substanceaddiction ([facility]/HCC), Syncope, TIA (transient ischemic attack), Ulcerative colitis ([facility]/HCC), Urinary tract infection, Uterine cancer ([facility]/HCC), or Vertigo. Surgical History She has a [...] Nsaids (non-steroidal anti-inflammatory drug) Review of Systems [place] reports having a normal bowel movement this [...] INDICATION: Signs/Symptoms:abdominal pain. COMPARISON: None. ACCESSION NUMBER(S): [id number] ORDERING CLINICIAN: TIFFANIE MENDEZ TECHNIQUE: Multiple fluoroscopic spot images were obtained during a single contrast upper GI with KUB. Total fluoroscopy time: 1 minute 32 seconds Radiation exposure (Reference Air Kerma): 99.36 mGy Images: 2 spot images 7 series and 2 delayed AP views of the abdomen FINDINGS: Research Consultant images demonstrate postsurgical changes from previous Tan-en-Y gastric bypass. Contrast is seen passing easily from the distal esophagus into the gastric remnant and Atn loop. No evidence for extravasation is noted. No abnormally dilated loops of small bowel are noted. Contrast reaches large bowel within 150 minutes of administration of contrast. IMPRESSION: Postsurgical changes from gastric bypass. No evidence for obstruction.. MACRO: none Signed by: Corie Garza 03/17/2023 5:00 PM Dictation workstation: [id number] Latest Reference Range & Units 03/17/23 07:04 [...] and recommendations. Kurt Matos MD * Cheyenne Long Justyna, PAPER SORTER AND COUNTER-OPERATIONAL TRAINER - 03/17/2023 10:29 AM EST Consults Reason [...] Gender dysphoria, GI (gastrointestinal bleed), Hemodialysis status ([facility]/HCC), Hernia, internal, History of peritoneal dialysis, HIV disease ([facility]/HCC), Immunocompromised ([facility]/HCC), Liver disease, Lumbar disc disease, Mastocytosis, MS (multiple sclerosis) ([facility]/HCC), Muscular dystrophy ([facility]/HCC), Myasthenia gravis ([facility]/HCC), Neuromuscular disorder ([facility]/HCC), Ovarian cancer ([facility]/HCC), Pancreatitis, Peptic ulcer disease, Prematurity, PTSD (post-traumatic stress disorder), Schizophrenia ([facility]/HCC), Seizure disorder ([facility]/HCC), Spinal stenosis, Substanceaddiction ([facility]/HCC), Syncope, TIA (transient ischemic attack), Ulcerative colitis ([facility]/HCC), Urinary tract infection, Uterine cancer ([facility]/HCC), or Vertigo. Surgical History She has a [...] Grandfather Danyell Kraus Heart disease Maternal Grandfather aDnyell Kraus Kidney disease Maternal Grandfather Danyell Kraus [...] and IV contrast. COMPARISON: None.. ACCESSION NUMBER(S): [id number] ORDERING CLINICIAN: TIFFANIE MENDEZ TECHNIQUE: Oral contrast [...] Corie Garza 03/16/2023 5:46 PM Dictation workstation: [id number] XR chest 1 view Result Date: 03/06/2023 Interpreted By: Sara Zarate, STUDY: XR CHEST 1 VIEW; 03/06/2023 7:32 am INDICATION: Signs/Symptoms:post op COMPARISON: None ACCESSION NUMBER(S): [id number] ORDERING CLINICIAN: JASON FOSTER TECHNIQUE: Frontal and [...] Sara Zarate 03/06/2023 1:48 PM Dictation workstation: [id number] XR chest 1 view Result Date: 03/05/2023 Interpreted By: Baldomero Hendrickson, STUDY: XR CHEST 1 VIEW; 03/05/2023 3:11 pm INDICATION: CLINICAL INFORMATION: Signs/Symptoms:NG tube placement confirmation. COMPARISON: 03/05/2019 at 745 hours ACCESSION NUMBER(S): [id number] ORDERING CLINICIAN: DESMOND TIRADO TECHNIQUE: Portable chest [...] Baldomero Hendrickson 03/05/2023 3:31 PM Dictation workstation: [id number] XR chest 1 view Result Date: 03/05/2023 Interpreted By: Nya Ahmadi, STUDY: XR CHEST 1 VIEW 03/05/2023 7:51 am INDICATION: Signs/Symptoms:confirm line placement COMPARISON: None available. ACCESSION NUMBER(S): [id number] ORDERING CLINICIAN: SERENA GEORGE TECHNIQUE: AP erect view of the chest FINDINGS: Right arm PICC line terminates in the SVC. There is no pneumothorax. The heart, mediastinum, and lungs are normally visualized. Right arm PICC line terminating in SVC without pneumothorax. No acute cardiopulmonary disease. Signed by: Nya Ahmadi 03/05/2023 7:54 AM Dictation workstation: [id number] Assessment/Plan NV, Epigastric Pain (LFTs are normal. [...] of Dr. Jah Nguyen. * Lizz Brunson APRN-OPERATIONAL TRAINER - 03/16/2023 5:09 PM EST Consults Reason For Consult Medical management History Of Present Illness Abbey Garcia is a 32 y.o. female presenting with abdominal pain. 32-year-old female presents to [facility] for chief complaint of abdominal pain, nausea. [...] emergency room close to her home near [place], [place] for further evaluation and was promptly transferred to [facility] for further evaluation and treatment. The hospitalist service is being consulted for medical management of hypothyroidism, asthma, GERD. Past Medical History She has a past medical history of Anxiety, Arthritis, Asthma, CPAP (continuous positive airway pressure) dependence, Depression, Dizziness, GERD (gastroesophageal reflux disease), Hypothyroidism, Irritable bowel syndrome, Median arcuate ligament syndrome ([facility]/HCC), PCOS (polycystic ovarian syndrome), PONV (postoperative nausea and vomiting), PUD (peptic ulcer disease), and Shortness of breath. She has no past medical history of MARSHAL (acute kidney injury) ([facility]), Autoimmune disorder ([facility]), Bipolar disorder ([facility]), BPH (benign prostatic hyperplasia), Cerebral aneurysm, Cervical cancer ([facility]), Cervical disc disease, Chronic kidney disease, CKD (chronic kidney disease), Cognitivedecline, Crohn's disease ([facility]), Dementia ([facility]), Dysphagia, Endometrial cancer ([facility]), Esophageal cancer ([facility]), Esophageal disease, ESRD (end stage renal disease) ([facility]), Fibromyalgia, primary, Fractures, Gastric cancer ([facility]), Gender dysphoria, GI (gastrointestinal bleed), Hemodialysis status ([facility]), Hernia, internal, History of peritoneal dialysis, HIV disease ([facility]), Immunocompromised ([facility]), Liver disease, Lumbar disc disease, Mastocytosis, MS (multiple sclerosis) ([facility]), Muscular dystrophy ([facility]), Myasthenia gravis ([facility] Neuromuscular disorder ([facility]), Ovarian cancer ([facility]), Pancreatitis, Peptic ulcer disease, Prematurity, PTSD (post-traumatic stress disorder), Schizophrenia ([facility]), Seizure disorder ([facility]), Spinal stenosis, Substanceaddiction ([facility]), Syncope, TIA (transient ischemic attack), Ulcerative colitis ([facility]), Urinary tract infection, Uterine cancer ([facility]), or Vertigo. Surgical History She has [...] to follow. JAMA Smith [facility] Work Phone: [phone]) 190-676502-01-2024 Plan of care note* Care Plan - Andie Lugo RN - 03/18/2023 11:05 AM EST The patient's goals for the shift include Free from pain The clinical goals for the shift include decrease nausea [facility] Work Phone: [phone]) 437-166802-01-2024 Nurse Note* Andie Lugo RN - 03/18/2023 7:27 AM EST Assumed care of pt, pt resting quietly in bed, ng to liws , will monitor [facility] Work Phone: [phone]) 472-553001-31-2024 Plan of care note* Care Plan - [...] pain meds throughout the shift Outcome: Progressing [facility] Work Phone: [phone] Consult note* Kurt Matos MD - 03/17/2023 [...] with liver biopsy in April 2020 at [facility] in evaluation of her chronic abdominal pain and intermittent food intolerance. She had a vertical sleeve gastrectomy at [facility] on September 03, 2020 for morbid obesity. She had a diagnostic laparoscopy on March 20, 2021 at [facility] for chronic pain thought to be secondary to an abdominal wall hernia. No hernia was seen at laparoscopy. She complained of gastroesophageal reflux disease and had her vertical sleeve gastrectomy converted to Tan-en-Y gastric bypass at [facility] on January 29, 2022. On March 06, 2022 she had an upper endoscopy at [facility] for epigastric abdominal pain. Her gastrojejunostomy was congested, edematous, with erosions and friable mucosa. The anastomosis was dilated and she was discharged on twice daily PPI. She had an upper endoscopy at [facility] onJune 23, 2022 for epigastric pain. At that time her gastrojejunostomy appeared normal. She continued to complain of abdominal pain and had an upper endoscopy at the [facility] on October 27, 2022. She was found to have food in her stomach and jejunum. There was no evidence of gastrojejunal ulcer. On November 11, 2022 she had laparoscopic closure of internal hernia at the jejunojejunostomy and ERCP through her gastric remnant for her abdominal pain. She was hospitalized at the [facility] on December 06, 2022 for [...] by laparotomy on March 05, 2023 at [facility]. She was discharged to home on [...] Gender dysphoria, GI (gastrointestinal bleed), Hemodialysis status ([facility]/HCC), Hernia, internal, History of peritoneal dialysis, HIV disease (CMS/HCC), Immunocompromised ([facility]/HCC), Liver disease, Lumbar disc disease, Mastocytosis, MS (multiple sclerosis) (CMS/HCC), Muscular dystrophy (CMS/HCC), Myasthenia gravis ([facility]/HCC), Neuromuscular disorder ([facility]/HCC), Ovarian cancer ([facility]/HCC), Pancreatitis, Peptic ulcer disease, Prematurity, PTSD (post-traumatic stress disorder), Schizophrenia ([facility]/HCC), Seizure disorder ([facility]/HCC), Spinal stenosis, Substanceaddiction ([facility]/HCC), Syncope, TIA (transient ischemic attack), Ulcerative colitis ([facility]/HCC), Urinary tract infection, Uterine cancer ([facility]/HCC), or Vertigo. Surgical History She has a [...] INDICATION: Signs/Symptoms:abdominal pain. COMPARISON: None. ACCESSION NUMBER(S): [id number] ORDERING CLINICIAN: TIFFANIE MENDEZ TECHNIQUE: Multiple fluoroscopic spot images were obtained during a single contrast upper GI with KUB. Total fluoroscopy time: 1 minute 32 seconds Radiation exposure (Reference Air Kerma): 99.36 mGy Images: 2 spot images 7 series and 2 delayed AP views of the abdomen FINDINGS: Research Consultant images demonstrate postsurgical changes from previous Tan-en-Y [...] Corie Garza 03/17/2023 5:00 PM Dictation workstation: [id number] Latest Reference Range & Units 03/17/23 07:04 [...] my evaluation and recommendations. Kurt Matos MD [facility] Work Phone: [phone]) [phone] Nurse Note* Cathy Madera RN - 03/17/2023 6:05 PM EST NG tube re inserted per order. Patient tolerated well. No complications. This nurse requested orderfor xray for placement of NG tube. Order received. Waiting on hemodialysis technician to verify placement per order. Will continue to monitor patient to ensure patient safety. [facility] Work Phone: [phone]) [phone] Plan of care note* Care Plan - [...] control, maintain and ensure patient safety. [facility] Work Phone: [phone] Nurse Note* Cathy Madera RN - 03/17/2023 [...] per to re insert NG tube and insurance licensing supervisor to low suction. Will re attempt with patients consent. [facility] Work Phone: [phone] Nurse Note* Cathy Madera RN - 03/17/2023 12:06 PM EST Patient transported to [facility] for placement of NG. Patient off unit. [facility] Work Phone: [phone] Nurse Note* Cathy Madera RN - 03/17/2023 11:44 AM EST This nurse notified business services tech that patient had NG tube placed and needed Xray for placement verification. This nurse messaged Rosa YUN to notify her that NG tube was placed and needed separate order for NG tube placement per business services tech. Order received. Will continue to monitor patient to ensure patient safety. [facility] Work Phone: [phone] History and physical note* JAMA Judd - 03/17/2023 11:03 AM EST History Of Present Illness This is a 32-year-old female with past medical history of chronic abdominal pain, PCOS, PUD, depression, GERD, IBS, obesity (status post laparoscopic sleeve gastrectomy in August [address] Ku [id number] gastric bypass 01/29/[address] Kat) and [...] March 15 and [facility]. She underwent further workup and was discharged home in stable condition from the emergency department, labs and imaging were negative. She then developed similar symptoms on March 09 represented to her local hospital and was transferred to [facility] per Dr. Magaña's request. Patient [...] and IV contrast. COMPARISON: None.. ACCESSION NUMBER(S): [id number] ORDERING CLINICIAN: TIFFANIE MENDEZ TECHNIQUE: Oral contrast [...] Corie Garza 03/16/2023 5:46 PM Dictation workstation: [id number] XR chest 1 view Result Date: 03/06/2023 Interpreted By: Sara Zarate, STUDY: XR CHEST 1 VIEW; 03/06/2023 7:32 am INDICATION: Signs/Symptoms:post op COMPARISON: None ACCESSION NUMBER(S): [id number] ORDERING CLINICIAN: JASON FOSTER TECHNIQUE: Frontal and [...] Sara Zarate 03/06/2023 1:48 PM Dictation workstation: [id number] XR chest 1 view Result Date: 03/05/2023 Interpreted By: Baldomero Hendrickson, STUDY: XR CHEST 1 VIEW; 03/05/2023 3:11 pm INDICATION: CLINICAL INFORMATION: Signs/Symptoms:NG tube placement confirmation. COMPARISON: 03/05/2019 at 745 hours ACCESSION NUMBER(S): [id number] ORDERING CLINICIAN: DESMOND TIRADO TECHNIQUE: Portable chest [...] Baldomero Hendrickson 03/05/2023 3:31 PM Dictation workstation: [id number] XR chest 1 view Result Date: 03/05/2023 Interpreted By: Nya Ahmadi, STUDY: XR CHEST 1 VIEW 03/05/2023 7:51 am INDICATION: Signs/Symptoms:confirm line placement COMPARISON: None available. ACCESSION NUMBER(S): [id number] ORDERING CLINICIAN: SERENA GEORGE TECHNIQUE: AP erect view of the chest FINDINGS: Right arm PICC line terminates in the SVC. There is no pneumothorax. The heart, mediastinum, and lungs are normally visualized. Right arm PICC line terminating in SVC without pneumothorax. No acute cardiopulmonary disease. Signed by: Nya Ahmadi 03/05/2023 7:54 AM Dictation workstation: [id number] Assessment and Plan -Abdominal pain/nausea -Median arcuate [...] Continue home iron supplementation GERD: Continue Pepcid [facility] Work Phone: [phone] History and physical note* Tiffanie J JAMA Mendez - 03/17/2023 11:03 AM EST History Of Present Illness This is a 32-year-old female with past medical history of chronic abdominal pain, PCOS, PUD, depression, GERD, IBS, obesity (status post laparoscopic sleeve gastrectomy in August [address] Ku [id number] gastric bypass 01/29/[address] Kat) and [...] her local hospital and was transferred to [facility] per Dr. Magaña's request. Patient [...] and are planning to consult Dr. Jah Patrick for further evaluation. WBC 5.0 on admission [...] and IV contrast. COMPARISON: None.. ACCESSION NUMBER(S): [id number] ORDERING CLINICIAN: TIFFANIE MENDEZ TECHNIQUE: Oral contrast [...] Corie Garza 03/16/2023 5:46 PM Dictation workstation: [id number] XR chest 1 view Result Date: 03/06/2023 Interpreted By: Sara Zarate, STUDY: XR CHEST 1 VIEW; 03/06/2023 7:32 am INDICATION: Signs/Symptoms:post op COMPARISON: None ACCESSION NUMBER(S): [id number] ORDERING CLINICIAN: JASON FOSTER TECHNIQUE: Frontal and [...] Sara Zarate 03/06/2023 1:48 PM Dictation workstation: [id number] XR chest 1 view Result Date: 03/05/2023 Interpreted By: Baldomero Hendrickson, STUDY: XR CHEST 1 VIEW; 03/05/2023 3:11 pm INDICATION: CLINICAL INFORMATION: Signs/Symptoms:NG tube placement confirmation. COMPARISON: 03/05/2019 at 745 hours ACCESSION NUMBER(S): [id number] ORDERING CLINICIAN: DESMOND TIRADO TECHNIQUE: Portable chest [...] Baldomero Hendrickson 03/05/2023 3:31 PM Dictation workstation: [id number] XR chest 1 view Result Date: 03/05/2023 Interpreted By: Nya Ahmadi, STUDY: XR CHEST 1 VIEW 03/05/2023 7:51 am INDICATION: Signs/Symptoms:confirm line placement COMPARISON: None available. ACCESSION NUMBER(S): [id number] ORDERING CLINICIAN: SERENA GEORGE TECHNIQUE: AP erect view of the chest FINDINGS: Right arm PICC line terminates in the SVC. There is no pneumothorax. The heart, mediastinum, and lungs are normally visualized. Right arm PICC line terminating in SVC without pneumothorax. No acute cardiopulmonary disease. Signed by: Nya Ahmadi 03/05/2023 7:54 AM Dictation workstation: [id number] Assessment and Plan -Abdominal pain/nausea -Median arcuate [...] supplementation GERD: Continue Pepcid [facility] Work Phone: [phone] Nurse Note* Cathy Madera RN - 03/17/2023 10:58 AM EST Patient is ordered NPO this nurse received verbal orders with readback to administer oral medication per Rosa YUN at bedside. Will continue to monitor patient to ensure patient safety. [facility] Work Phone: [phone] Nurse Note* Cathy Madera RN - 03/17/2023 [...] to monitor patient to ensure patient safety. [facility] Work Phone: [phone] Consult note* Cheyenne Jansen, JAMA - 03/17/2023 10:29 AM EST Consults Reason For Consult [place] History Of Present Illness Abbey Garcia is a 32 y.o. female presenting with abdominal pain, nausea, vomiting. Patient has past medical history of gastric bypass that was revised with gastric sleeve. She also has a history of median arcuate ligament release with vascular surgery 03/05/2023, [facility]. This was completed per Dr Magaña. Following [...] disease) (CMS/HCC), Fibromyalgia, primary, Fractures, Gastric cancer ([facility]/HCC), Gender dysphoria, GI (gastrointestinal bleed), Hemodialysis status ([facility]), Hernia, internal, History of peritoneal dialysis, HIV disease ([facility]/HCC), Immunocompromised ([facility]/HCC), Liver disease, Lumbar disc disease, Mastocytosis, MS (multiple sclerosis) ([facility]), Muscular dystrophy ([facility]), Myasthenia gravis ([facility] Neuromuscular disorder ([facility]), Ovarian cancer ([facility]), Pancreatitis, Peptic ulcer disease, Prematurity, PTSD (post-traumatic stress disorder), Schizophrenia ([facility]/HCC), Seizure disorder ([facility]), Spinal stenosis, Substanceaddiction ([facility]), Syncope, TIA (transient ischemic attack), Ulcerative colitis ([facility]), Urinary tract infection, Uterine cancer ([facility]), or Vertigo. Surgical History She has [...] and IV contrast. COMPARISON: None.. ACCESSION NUMBER(S): [id number] ORDERING CLINICIAN: TIFFANIE MENDEZ TECHNIQUE: Oral contrast [...] 2.0 cm Bile Ducts: Normal caliber. Gallbladder: Annce rgically absent Pancreas: Unremarkable. Spleen: Unremarkable. Adrenals: [...] Corie Garza 03/16/2023 5:46 PM Dictation workstation: [id number] XR chest 1 view Result Date: 03/06/2023 Interpreted By: Sara Zarate, STUDY: XR CHEST 1 VIEW; 03/06/2023 7:32 am INDICATION: Signs/Symptoms:post op COMPARISON: None ACCESSION NUMBER(S): [id number] ORDERING CLINICIAN: JASON FOSTER TECHNIQUE: Frontal and [...] Sara Zarate 03/06/2023 1:48 PM Dictation workstation: [id number] XR chest 1 view Result Date: 03/05/2023 Interpreted By: Baldomero Hendrickson, STUDY: XR CHEST 1 VIEW; 03/05/2023 3:11 pm INDICATION: CLINICAL INFORMATION: Signs/Symptoms:NG tube placement confirmation. COMPARISON: 03/05/2019 at 745 hours ACCESSION NUMBER(S): [id number] ORDERING CLINICIAN: DESMOND TIRADO TECHNIQUE: Portable chest [...] Baldomero Hendrickson 03/05/2023 3:31 PM Dictation workstation: [id number] XR chest 1 view Result Date: 03/05/2023 Interpreted By: Nya Ahmadi, STUDY: XR CHEST 1 VIEW 03/05/2023 7:51 am INDICATION: Signs/Symptoms:confirm line placement COMPARISON: None available. ACCESSION NUMBER(S): [id number] ORDERING CLINICIAN: SERENA GEORGE TECHNIQUE: AP erect view of the chest FINDINGS: Right arm PICC line terminates in the SVC. There is no pneumothorax. The heart, mediastinum, and lungs are normally visualized. Right arm PICC line terminating in SVC without pneumothorax. No acute cardiopulmonary disease. Signed by: Nya Ahmadi 03/05/2023 7:54 AM Dictation workstation: [id number] Assessment/Plan NV, Epigastric Pain (LFTs are normal. [...] of this patient. Associated attestation - Yani Wnog MD - 03/17/2023 11:20 PM EST Seen and examined. Agree with assessment and plan. Labs reviewed. Note from Dr. Jah Caceres reviewed later. 32-year-old with complicated past medical history including multiple abdominal surgeries. At this time her nausea seems to be improving. Agree with symptomatic treatment and if not better proceed with EGD in the presence of Dr. Jah Nguyen. [facility] Work Phone: 1(380) 284-857701-31-2024 Nurse Note* Cathy Madera RN - 03/17/2023 [...] to monitor patient to ensure patient safety. [facility] Work Phone: 1(258) 311-961501-30-2024 Consult note* Lizz Burnettneva, PAPER SORTER AND COUNTER-OPERATIONAL TRAINER - 03/16/2023 5:09 PM EST Consults Reason For Consult Medical management History Of Present Illness Abbey Garcia is a 32 y.o. female presenting with abdominal pain. 32-year-old female presents to [facility] for chief complaint of abdominal pain, nausea. [...] emergency room close to her home near [place], [place] for further evaluation and was promptly transferred to [facility] for further evaluation and treatment. The hospitalist [...] disease) (CMS/HCC), Fibromyalgia, primary, Fractures, Gastric cancer ([facility]/HCC), Gender dysphoria, GI (gastrointestinal bleed), Hemodialysis status ([facility]), Hernia, internal, History of peritoneal dialysis, HIV disease ([facility]/HCC), Immunocompromised ([facility]), Liver disease, Lumbar disc disease, Mastocytosis, MS (multiple sclerosis) ([facility]), Muscular dystrophy ([facility]), Myasthenia gravis ([facility]), Neuromuscular disorder ([facility]), Ovarian cancer ([facility]), Pancreatitis, Peptic ulcer disease, Prematurity, PTSD (post-traumatic stress disorder), Schizophrenia ([facility]), Seizure disorder ([facility]), Spinal stenosis, Substanceaddiction ([facility]), Syncope, TIA (transient ischemic attack), Ulcerative colitis ([facility]), Urinary tract infection, Uterine cancer ([facility]), or Vertigo. Surgical History She has [...] consult. Will continue to follow. JAMA Smith [facility] Work Phone: 1(862) 197-636701-30-2024 Emergency department Note* Grecia Oates RN - 03/16/2023 5:00 PM EST Pt is requesting pain medication. MD Barker notified. Grecia Oates RN 03/16/23 1701 [facility] Work Phone: 1(153) 503-223101-30-2024 Emergency department Note* Grecia Oates RN - 03/16/2023 5:00 PM EST Pt is requesting pain medication. MD Barker notified. Grecia Oates RN 03/16/23 170 * Grecia Oates RN - 03/16/2023 3:54 PM EST Pt has not been able to sustain orthostatic VS. She is not able to stand at this time. Grecia Oates RN 03/16/23 5256 * Grecia Oates RN - 03/16/2023 1:46 PM EST Pt arrived from [place] due to abdominal pain due to celiac [...] dictation software, please excuse any errors in mattress renovator. Melisa Barker MD 03/16/231919 * Leatah Paul PA-C - 03/16/2023 1:37 PM EST HPI Chief Complaint Patient presents with Abdominal Pain Patient is a 32-year-old female history of gastric bypass surgery, median arcuate ligament syndromewith vascular surgery performed on March 05 transferred to [facility] from [facility] in [place] for abdominal pain and nausea vomiting. Patient states the abdominal pain is mid abdominal, no signs of surgical scar infection, states she has been unable to tolerate p.o. intake for 2 days now. She states she feels a burning cramping sensation around where her gastric pouch was placed. ER spoke with Dr. Magaña vascular surgeon who requested for patient to be sent to [facility] for further evaluation. Patient denies recent [...] Grandmother Diabetes Paternal Grandmother Grandmother Asthma Brother Adná Phipps Social History Tobacco Use Smoking status: [...] MDM ED Course as of 03/16/23 1640 [facility] Mar 16, 2023 1421 Vascular surgery VISUAL TRAINING AIDE wanted to put in the imaging study [...] recognition software. Please excuse any errors of mattress renovator. My thought process and reason for plan [...] from: Patient, EMS, attending ER physician at [facility] Social Determinants of Health considered during this visit: Lives independently Medications given during visit: Medications dextrose 5%-0.45 % sodium chloride infusion (150 mL/hr intravenous New Bag 03/16/23 6365) albuterol 2.5 mg /3 mL (0.083 %) [...] 5 mg (5 mg intravenous Given 03/16/23 6841) Diagnostic/tests Labs Reviewed CBC WITH AUTO DIFFERENTIAL [...] and has been validated for use at [facility]. Negative results do not preclude [...] Dr. Magaña transferred ER to ER from [place] for further evaluation of her abdominal pain [...] Ngo RN 03/17/23 0826 documented in this [facility] Work Phone: 1(800) 228-475801-30-2024 Emergency department Note* Grecia Oates RN - 03/16/2023 3:54 PM EST Pt has not been able to sustain orthostatic VS. She is not able to stand at this time. Grecia Oates RN 03/16/23 5822 [facility] Work Phone: 1(321) 206-928201-30-2024 Note* Significant Event - Channing Oconnor DO - 03/16/2023 3:02 PM EST Called to admit this patient for abdominal pain. Going to review, this patient has a ongoing history since 2019 of abdominal pain with considerable notes from [facility], and has a history gastric bypass, [...] lab work has been done at this [facility]. No imaging recent done at this facility. Ultimately, this is a patient with no active emesis per my discussion with ER staff, and feel that in this patient has either an acute worsening of her chronic issue which will be best done at [facility] either as inpatient or outpatient, where she has ongoing work, or is a postoperative situation that has been discussed multiple times with the primary operating service (and I have discussed with Tiffanie Mendez CNP with their service and there appears to be a good plan for imaging studies), and can ba admitted by their service). [facility] Work Phone: 1([phone]) 173-283601-30-2024 Evaluation + Plan noteExtracted from: Title:ED Note [...] 09:45:00 AM Scheduled Provider:Nasim JOHNSON, Rajni Ballesteros Location: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 [place]? Pt is A&O x3. States terrible pain in abdomen that doesn't go away. C/O nausea, vomiting, headaches, body chills. [facility] Work Phone: 1([phone]) 777-848301-30-2024 Emergency department Note* Linda Ngo RN - 03/16/2023 1:37 PM EST Into assess patient. Patient awake and A&OX4. Patient complains of incisional pain and requested Percocet for relief, rates pain 7/10. Assessed incisional wound on abdomen, incision well approximated, dry and scabbed, no drainage noted. Patient admits to surgery On 03/05/23 for MALS. Medicated with percocet as requested. Linda Ngo RN 03/17/23 08 [facility]01-30-2024 Emergency department Note* Linda Ngo RN - 03/16/2023 1:37 PM EST Report called to DEE Ortiz updated on patient's status. Linda Ngo RN 03/17/23 08 [facility] Work Phone: [phone]) [phone] Physician Emergency department Note* Melisa Barker MD [...] dictation software, please excuse any errors in mattress renovator. Melisa Barker MD 03/16/231919 [facility] Work Phone: [phone]) 252-454901-30-2024 Physician Emergency department Note* Leatha Paul PA-C - 03/16/2023 1:37 PM EST HPI Chief Complaint Patient presents with Abdominal Pain Patient is a 32-year-old female history of gastric bypass surgery, median arcuate ligament syndromewith vascular surgery performed on March 05 transferred to [facility] from [facility] in [place] for abdominal pain and nausea vomiting. Patient states the abdominal pain is mid abdominal, no signs of surgical scar infection, states she has been unable to tolerate p.o. intake for 2 days now. She states she feels a burning cramping sensation around where her gastric pouch was placed. ER spoke with Dr. Magaña vascular surgeon who requested for patient to be sent to [facility] ER for further evaluation. Patient denies recent fever or chills. No other acute complaints at this time. [employer] Coma Scale Score: 15 Patient History Past [...] of 03/16/23 1640 e Mar 16, 2023 142 Vascular surgery VISUAL TRAINING AIDE wanted to put in the imaging study [...] recognition software. Please excuse any errors of mattress renovator. My thought process and reason for plan [...] from: Patient, EMS, attending ER physician at [facility] Social Determinants of Health considered during this visit: Lives independently Medications given during visit: Medications dextrose 5%-0.45 % sodium chloride infusion (150 mL/hr intravenous New Bag 03/16/23 0747) albuterol 2.5 mg /3 mL (0.083 %) [...] and has been validated for use at [facility]. Negative results do not preclude [...] Dr. Magaña transferred ER to ER from [place] for further evaluation of her abdominal pain [...] BLEEDING. Procedure Procedures Leatha Paul PA-C 03/16/23 7338 [facility] Work Phone: 1(622) 872-585301-29-2024 Hospital Discharge instructions Patient Education 03/15/2023 18:18:58 [...] Follow these instructions at home: Medicines Take dfwm-usa-gdaomhm and prescription medicines only as told by [...] Watch your condition for any changes. Take aoow-nwb-aowqnwl and prescription medicines only as told by [...] provider. Document Revised: 03/22/2020 Document Reviewed: 06/12/2019 [employer]Rank Patient Education 2022 [employer]. Follow Up Care 03/15/2023 11:45:15 With:Your surgeon Dr. Magaña Address:Unknown When:03/16/2023 17:30:59 [facility]01-29-2024 Evaluation + Plan noteExtracted from: Title:ED [...] 09:45:00 AM Scheduled Provider:Nasim JOHNSON, Rajni Ballesteros Location:[facility] Appointment Type:URO Office Visit Future Scheduled Tests Radiology* US Renal 06/10/22 [facility]01-24-2024 Hospital Discharge instructions* Discharge Instr - Diet* Yue German RN - 03/10/2023 3:19 PM EST Regular Diet [facility]: [phone]) 943-191101-24-2024 History of Present illness Narrative* Keesha Jack - 03/10/2023 2:30 PM EST Spiritual Care Visit Clinical Encounter Type Visited With: Patient Routine Visit: Introduction Continue Visiting: No Values/Beliefs Spiritual Requests During Hospitalization: Blesssing. Going home today Sacramental Encounters Communion: Does not want communion Communion Given Indicator: No Sacrament of Sick-Anointing: Patient declined anointing Keesha Jack * Chantale Agrawal [facility] - 03/10/2023 1:58 PM EST Pt has been cleared by vascular. Update: Pt cleared for dc. Updates ent to [facility] who the pt has already been active with, F2F, dc summary and AVS sent via [employer], [facility] in 1-2 days. Pt ok to dc. 03/10/23 4109 Discharge Planning Patient expects to be discharged to: [facility] * Tiffanie Mandy Mendez, SLIM-BETH - 03/10/2023 11:32 AM EST Images from [...] for p.o. Valium and Percocet sent to [facility] pharmacy - Follow-up orders placed for 1 month virtual appoint with Dr. Magaña - Work note faxed to her work as well as uploaded into [employer] - Cleared for discharge from vascular standpoint. [...] LE Dressing: Yes LE Dressing Adaptive Equipment: Printer Technician, Sock aide Pants Level of Assistance: [...] functional mobility a short household distance at [facility] for safety with close S. Pt demonstrating fair+/good standing balance with increased fatigue noted throughout task Outcome Measures:[facility] Daily Activity Putting on and taking [...] via laparotomy (03/05). Spoke with RN and OPERATIONAL TRAINER regarding plans for consult. Theplan is for [...] cream, , Topical, TID PRN, Alicia Toro APRN-OPERATIONAL TRAINER enoxaparin (Lovenox) syringe 40 mg, 40 mg, [...] mg, 0.5 mg, intravenous, q4h PRN, Tiffanie Mendez APRN-OPERATIONAL TRAINER, 0.5 mg at 03/09/23 1338 hydrOXYzine HCL [...] 20 mEq/L infusion, 75 mL/hr, intravenous, Continuous, Jason Foster APRN-OPERATIONAL TRAINER, Last Rate: 75 mL/hr at 03/09/23 0145, [...] Today's Date: 03/09/2023 Time Calculation Start Time: 1420 Stop Time: 1444 Time Calculation (min): 23 [...] LE Dressing: Yes LE Dressing Adaptive Equipment: Printer Technician, Sock aide Pants Level of Assistance: [...] advice provided to abside by precautions Outcome Measures:[facility] Daily Activity Putting on and taking [...] by discharge. Outcome: Progressing * Alicia Toro, PAPER SORTER AND COUNTER-OPERATIONAL TRAINER - 03/09/2023 10:50 AM EST Abbey Garcia [...] INDICATION: Signs/Symptoms:post op COMPARISON: None ACCESSION NUMBER(S): [id number] ORDERING CLINICIAN: JASON FOSTER TECHNIQUE: Frontal and [...] Sara Zarate 03/06/2023 1:48 PM Dictation workstation: [id number] Physical Exam Constitutional: Appearance: Normal appearance. HENT: [...] on discharge JAMA Granger * Malka Manning, OUTBOUND CALL CENTER REPRESENTATIVE - 03/09/2023 10:45 AM EST Physical Therapy [...] steps, 1 rail, non-reciprocating pattern. Outcome Measures: [facility] Basic Mobility Turning from your back [...] End: 03/20/23 Resolved: 03/09/23 * Jason Foster APRN-OPERATIONAL TRAINER - 03/09/2023 10:24 AM EST Abbey Garcia [...] ILIANA Morrell - 03/09/2023 9:24 AM EST [facility] pt is already active with them and are able to continue to provide Rn for tpn and added PT. 03/09/23 0923 Discharge Planning Patient expects to be discharged to: [facility] * ILIANA Morrell - 03/08/2023 2:52 PM EST [facility]. Pt lives in a house with her and 3 kids in two story house with first floor setup. 5 steps to enter the house. Pt drives, works, independent for mobility. Pt wears glasses. Only other medical supplies at home are for TPN. Pts PCP is Dr Jaquan Morrow with [facility], prescriptions filled through [facility] in [place]. Discussion around dc planning needs with the pt stating she will probably benefit from home health PT. Referrals sent to homecare agencies that service where she lives, these agencies include [facility], [address], [facility], [facility], [facility], await responses. 03/08/23 1452 Discharge Planning Patient expects to be discharged to: Home with [facility] * Anam Khoury, PT - [...] prior to attempting to sit Outcome Measures: [facility] Basic Mobility Turning from your back [...] required d/t increase pain and fatigue Outcome Measures:[facility] Daily Activity Putting on and taking [...] by discharge. Outcome: Progressing * Alicia Toro, PAPER SORTER AND COUNTER-OPERATIONAL TRAINER - 03/08/2023 11:04 AM EST Abbey Garcia [...] INDICATION: Signs/Symptoms:post op COMPARISON: None ACCESSION NUMBER(S): [id number] ORDERING CLINICIAN: JASON FOSTER TECHNIQUE: Frontal and [...] Sara Zarate 03/06/2023 1:48 PM Dictation workstation: [id number] Physical Exam Constitutional: Appearance: Normal appearance. HENT: [...] care of this patient. JAMA Lynn * Lizz Brunson, PAPER SORTER AND COUNTER-OPERATIONAL TRAINER - 03/07/2023 9:29 AM EST Abbey Garcia [...] INDICATION: Signs/Symptoms:post op COMPARISON: None ACCESSION NUMBER(S): [id number] ORDERING CLINICIAN: JASON FOSTER TECHNIQUE: Frontal and [...] Sara Zarate 03/06/2023 1:48 PM Dictation workstation: [id number] Physical Exam Constitutional: Appearance: Normal appearance. HENT: [...] due to increased fatigue levels. Outcome Measures: [facility] Basic Mobility Turning from your back [...] INDICATION: Signs/Symptoms:post op COMPARISON: None ACCESSION NUMBER(S): [id number] ORDERING CLINICIAN: JASON FOSTER TECHNIQUE: Frontal and [...] Sara Zarate 03/06/2023 1:48 PM Dictation workstation: [id number] Physical Exam Constitutional: General: She is not [...] proph Karma Sharpe MD * Jason Foster, PAPER SORTER AND COUNTER-OPERATIONAL TRAINER - 03/06/2023 1:57 PM EST Abbey Garcia [...] 50 mg, oral, BID Continuous medications potassium olliqptt-I8-3.9%NaCl, 125 mL/hr, Last Rate: 125 mL/hr (03/06/23 [...] recliner for comfort Prior Function: Level of Meagher: Independent with ADLs and functional transfers, Independent with homemaking with ambulation ADL Assistance: Independent Homemaking Assistance: Independent Ambulatory Assistance: Independent 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) Hand Dominance: Right Prior Function [...] Strength Comments: BULesia's WFL Coordination: Coordination Comment: BUE's WFL Hand Function: Hand Function Gross Grasp: Functional Coordination: Functional Outcome Measures: [facility] Daily Activity Putting on and taking [...] Today's Date: 03/06/2023 Time Calculation Start Time: 08 Stop Time: 831 Time Calculation (min): 32 min Assessment/Plan PT [...] Prior Function Per Pt/Caregiver Report Level of Meagher: Independent with ADLs and functional transfers, Independent with homemaking with ambulation Receives Help From: (spouse and mother) ADL Assistance: Independent Ambulatory Assistance: Independent Prior Function Comments: pt was active and driving in community; 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 Take before meals. Pt to slat pickler prescription ondansetron ODT (Zofran-ODT) 4 mg [...] Paternal Grandmother Grandmother Asthma Brother [facility] Medications: potassium tvuelshl-A7-3.9%NaCl, 125 mL/hr, Last Rate: 125 mL/hr (03/06/23 0700) Current Facility-Administered Medications: acetaminophen (Tylenol) tablet 650 mg, 650 mg, oral, q4h PRN OR acetaminophen (Tylenol) oral liquid 650 mg, 650 mg, oral, q4h PRN OR acetaminophen (Tylenol) suppository 650 mg, 650 mg, rectal, q4h PRN, Jason Foster, PAPER SORTER AND COUNTER-OPERATIONAL TRAINER albuterol 2.5 mg /3 mL (0.083 %) [...] 20 mg, intravenous, BID, Baldomero Richards, [facility], 20 mg at 03/05/23 2143 ferrous [...] 1 tablet, oral, q4h PRN, Jason Mckeon APRN-OPERATIONAL TRAINER polyethylene glycol (Glycolax, Miralax) packet 17 g, [...] ICU skin protocol Ethics/Code Status: Full code Ror Engineer: DVT Prophylaxis: Lovenox GI Prophylaxis: pepcid Bowel Regimen: miralax Diet: Clear liquids CVC: none Seymour: yes - left radial Long: yes Restraints: no Dispo: ICU Critical Care Time: 40 minutes Chrissy Harris PA-C documented in this [facility] Work Phone: 1([phone]) 507-926301-24-2024 Nurse Note* Edilia Darby RN - 03/10/2023 11:57 AM EST Patient with Rt arm dual lumen picc, dressing D&I, red lumen in use without difficulty, purple lumen flushes easily and with positive blood return, curos cap applied. [facility]01-24-2024 Nurse Note* Edilia Darby RN - [...] Complained 7/10 pain percocet was given * [place] RN - 03/09/2023 2:22 PM EST [...] scanned for over 650cc, pt straight cath [id number] * Olga Paz RN - 03/07/2023 5:47 [...] will reach out to vascular doctor and VISUAL TRAINING AIDE for the order. * Ron Mancera RN - 03/05/2023 1:58 PM EST Informed PACKAGE CAR DRIVER to ask Dr. Magaña for admit orders prior to transfer. documented in this [facility] Work Phone: 1(752) 366-102901-24-2024 Nurse Note* Nadia Zee RN - 03/10/2023 11:36 AM EST Long catheter removed [facility]01-24-2024 Nurse Note* Eileen Austin RN - 03/10/2023 12:14 AM EST Blood sugar 79 gave patient hailee crackers and pudding. Complained 7/10 pain percocet was given [facility]01-23-2024 Consult note* Jin Vargas MD - [...] medical history of MARSHAL (acute kidney injury) ([facility]), Autoimmune disorder ([facility]), Bipolar disorder ([facility]), BPH (benign prostatic hyperplasia), Cerebral aneurysm, Cervical cancer ([facility]), Cervical disc disease, Chronic kidney disease, CKD (chronic kidney disease), Cognitivedecline, Crohn's disease ([facility]/HCC), Dementia ([facility]), Dysphagia, Endometrial cancer ([facility]/HCC), Esophageal cancer ([facility]), Esophageal disease, ESRD (end stage renal disease) ([facility]), Fibromyalgia, primary, Fractures, Gastric cancer ([facility]), Gender dysphoria, GI (gastrointestinal bleed), Hemodialysis status ([facility]), Hernia, internal, History of peritoneal dialysis, HIV disease ([facility]), Immunocompromised ([facility]), Liver disease, Lumbar disc disease, Mastocytosis, [...] care of this patient. Jin Vargas MD [facility] Work Phone: 1(647) 300-255201-23-2024 Consult note* Jin Vargas MD - 03/09/2023 [...] Esophageal disease, ESRD (end stage renal disease) ([facility]/HCC), Fibromyalgia, primary, Fractures, Gastric cancer (CMS/HCC), Gender dysphoria, GI (gastrointestinal bleed), Hemodialysis status ([facility]/HCC), Hernia, internal, History of peritoneal dialysis, HIV disease (CMS/HCC), Immunocompromised ([facility]/HCC), Liver disease, Lumbar disc disease, Mastocytosis, MS (multiple sclerosis) ([facility]/HCC), Muscular dystrophy ([facility]/HCC), Myasthenia gravis ([facility]/HCC), Neuromuscular disorder ([facility]/HCC), Ovarian cancer ([facility]/HCC), Pancreatitis, Peptic ulcer disease, Prematurity, PTSD (post-traumatic stress disorder), Schizophrenia ([facility]/HCC), Seizure disorder ([facility]/HCC), Spinal stenosis, Substanceaddiction ([facility]/HCC), Syncope, TIA (transient ischemic attack), Ulcerative colitis ([facility]/HCC), Urinary tract infection, Uterine cancer ([facility]/HCC), or Vertigo. 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 She was seen at [facility] by Dr. aKt and underwent an appendectomy when she arrived [...] She had a CT angiogram recently at [facility] but this is not available for [...] is with Dr. Ramos over the [facility]. Currently any oral intake will [...] 20 mg, intravenous, BID, Baldomero Richards, [facility], 20 mg at 03/06/23 0854 ferrous [...] Follow up Comment: 03/09/23 [facility] Work Phone: 1(866) 529-450801-23-2024 Nurse Note* Santa Ferris RN - 03/09/2023 2:22 PM EST Upon rounding right upper arm dual lumen PICC with current CHG dressing dry and intact. One lumen in use, one with brisk blood return and flushes easily, Curos cap intact. [facility] Plan of care note* Care Plan - Danny Middleton RN - 03/08/2023 11:21 PM EST The patient's goals for the shift include rest The clinical goals for the shift include pain will be controled overnight. [facility]22[facility] Miscellaneous Notes* Care Plan - Danny [...] Promote/optimize nutrition Outcome: Progressing Flowsheets (Taken 03/08/2023 0845) Promote/optimize nutrition: Monitor/record intake including meals Consume [...] discharge criteria. * Perioperative Nursing Note - Samantah Fields RN - 03/05/2023 1:07 PM EST [...] Procedures Release Median Arcuate Ligament by LAPAROTOMY [id number] - [place] UNLISTED PX ABDOMEN MUSCULOSKELETAL SYSTEM Surgeons * Sherry Magaña - Primary Resident/Fellow/Other Immigration Associate: Surgeon(s) and Role: Procedure Summary Anesthesia: General ASA: III Anesthesia Staff: Anesthesiologist: Serena George DO OUTSIDE LABORER: Maricruz Yip APRN-THOMAS Estimated Blood Loss: 2mL [...] Arcuate Ligament Tissue LIGAMENT SURGICAL PATHOLOGY EXAM [place] M Park, MD 03/05/2023 1125 Staff: Turf Sales Person: Mary Mccabe RN; Natalie Young RN Scrub Person: Nadia Escobedo; Thu Ford Drains and/or Catheters: NG/OG/Feeding Tube NG - Jennings sump 16 Fr Right nostril (Active) Tube [...] MEMBRANE, SEPRAFILM, 5 X 6 IN - [id number] Implanted Findings: heavily inflammed ligamentous tissues and [...] entire procedure. Sherry Magaña documented in this [facility] Work Phone: 1(647) 100-973101-22-2024 Plan of care note* Care Plan - [...] meds throughout the shift Outcome: Progressing . [facility]01-22-2024 Plan of care note* Care Plan - Olga Paz RN - 03/08/2023 2:27 AM EST The patient's goals for the shift include rest The clinical goals for the shift include increase activity Over the shift, the patient did not make progress toward the following goals. Barriers to progression include weak/pain. Recommendations to address these barriers include administer medications/interventions as ordered. [facility] Work Phone: [phone]) 985-683101-22-2024 Nurse Note* Olga Paz RN - 03/08/2023 1:[address] Oconnor notified of retained urine. Order to insert long catheter. 16F long catheter placed, clear yellow urine return. Pt tolerated well. [facility]01-22-2024 Nurse Note* Olga Paz RN - 03/08/2023 12:48 AM EST Pt unable to urinate but continues to have an urge to do so. Bladder scan performed with 1152ml found. Page out to hospitalist. [facility] Work Phone: 1(271) 977-961401-21-2024 Nurse Note* Nadia Zee RN - 03/07/2023 5:09 PM EST Pt with 10cc urine output since long removed, bladder scanned for over 650cc, pt straight cath [id number] [facility] Work Phone: 1(278) 960-445301-21-2024 Plan of care note* Care Plan - Nadia Zee RN - 03/07/2023 8:50 AM EST The patient's goals for the shift include rest The clinical goals for the shift include increase activity Over the shift, the patient did not make progress toward the following goals. Barriers to progression include . Recommendations to address these barriers include . [facility] Work Phone: [phone] 248-156601-21-2024 Nurse Note* Olga Paz RN - 03/07/2023 5:47 AM EST Long catheter removed per order. Pt tolerated well [facility] Work Phone: [phone]) 401-725701-20-2024 Plan of care note* Care Plan - Olga Paz RN - 03/06/2023 8:57 PM EST The patient's goals for the shift include rest The clinical goals for the shift include increase activity Over the shift, the patient did not make progress toward the following goals. Barriers to progression include weak/pain. Recommendations to address these barriers include encouragement/administer medications/interventions as ordered. [facility] Work Phone: 1([phone]) 248-449201-20-2024 Nurse Note* Vic Gilliland RN - 03/06/2023 4:22 PM EST Seeking clarification of appropriate disposition of patient and possible transfer to SDU. Patient understands possibility of transfer. 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 She was seen at [facility] by Dr. Kat and underwent an [...] She had a CT angiogram recently at [facility] but this is not available for [...] is with Dr. Ramos over the [facility]. Currently any oral intake will [...] 20 mg, intravenous, BID, Baldomero Richards, [facility], 20 mg at 03/06/23 0854 ferrous [...] Needed?: 3-5 days Follow up Comment: 03/09/23 [facility]01-20-2024 Plan of care note* Care Plan - [...] Recommendations to address these barriers include steroids. [facility] Work Phone: [phone]) 639-711501-20-2024 Nurse Note* Vic Gilliland RN - 03/06/2023 9:01 AM EST Returned to bed with assist of two. Head of bed elevated 45 degrees. [facility] Work Phone: [phone]) 425-613701-19-2024 Nurse Note* Ron Mancera RN - 03/05/2023 4:[address] Magaña at bedside, informed of the muscle spasm and administering PRN diazepam. No new orders placed. Plan to remove NGT tomorrow morning. [facility] Work Phone: 1([phone]) 410-524201-19-2024 Plan of care note* Care Plan - [...] by Jhoanne Villamor, RN Outcome: Progressing Goal: Walks with improved [...] 154 by Ron Mancera RN Outcome: Progressing Goal: Free from opioid side effects throughout the shift 03/05/2023 154 by Ron Mancera RN Outcome: Progressing 03/05/2023 154 by Ron Mancera RN Outcome: Progressing Goal: Free from acute confusion related to pain meds throughout the shift 03/05/2023 154 by Ron Mancera RN Outcome: Progressing 03/05/2023 1549 by Ron Mancera RN Outcome: Progressing [facility] Work Phone: [phone] 638-954301-19-2024 History and physical note* Desmond Tirado PA-C - 03/05/2023 2:49 PM EST [facility] Critical Care Medicine Date: 03/05/2023 Patient: [...] the morning. Take before meals. Pt to slat pickler prescription ondansetron ODT (Zofran-ODT) 4 mg [...] Paternal Grandmother Grandmother Asthma Brother [facility] Medications: Current Facility-Administered Medications: acetaminophen (Tylenol) tablet [...] 17.2 mg, 2 tablet, oral, BID, Jason Jonh Foster, PAPER SORTER AND COUNTER-OPERATIONAL TRAINER Review of Systems: Review of Systems Constitutional: [...] ICU skin protocol Ethics/Code Status: Full code Ror Engineer: DVT Prophylaxis: none GI Prophylaxis: pepcid Bowel Regimen: miralax Diet: NPO CVC: none Yloi: yes - left radial Long: yes Restraints: no Dispo: ICU Critical Care Time: 60 minutes spent in preparing to see patient (I.e.labs,imaging, etc.), documentation, discussion plan of care with patient/family/caregiver, and/ or coordination of care with multidisciplinary team including the attending. Time does not include completion of procedure time. Desmond Tirado PA-C [facility] Work Phone: 1(704) 350-340201-19-2024 History and physical note* Desmond Tirado PA-C - 03/05/2023 2:49 PM EST [facility] Critical Care Medicine Date: 03/05/2023 Patient: [...] the morning. Take before meals. Pt to slat pickler prescription ondansetron ODT (Zofran-ODT) 4 mg [...] Hypertension Mother Jessica Phipps Cancer Maternal Grandfather Daneyll Efra COPD Maternal Grandfather Danyell Kraus Heart disease Maternal Grandfather Danyell Kraus Kidney disease Maternal Grandfather Danyell Kraus Hypertension Maternal Grandmother Grandpa Anesthesia problems Paternal Grandfather Elan Artino Arthritis Paternal Grandfather Elan Artino Hypertension Paternal Grandfather Elan Artino Anesthesia related problems Paternal Grandfather Elan Artino COPD Paternal Grandmother Grandmother Diabetes Paternal Grandmother Grandmother Asthma Brother [facility] Medications: Current Facility-Administered Medications: acetaminophen (Tylenol) tablet [...] ICU skin protocol Ethics/Code Status: Full code Ror Engineer: DVT Prophylaxis: none GI Prophylaxis: pepcid Bowel Regimen: miralax Diet: NPO CVC: none Seymour: yes - left radial Long: yes Restraints: no Dispo: ICU Critical Care Time: 60 minutes spent in preparing to see patient (I.e.labs,imaging, etc.), documentation, discussion plan of care with patient/family/caregiver, and/ or coordination of care with multidisciplinary team including the attending. Time does not include completion of procedure time. 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 She was seen at [facility] by Dr. Kat and underwent an [...] She had a CT angiogram recently at [facility] but this is not available for [...] is with Dr. Ramos over the [facility]. Currently any oral intake will [...] to review the CT angiogram done at [facility]. She is going to undergo a [...] with Dr. Deacon Kat. documented in this [facility] Work Phone: [phone] 615-871401-19-2024 Nurse Note* Ron Mancera RN - 03/05/2023 2:01 PM EST Patient in the unit from PACU, unable to transfer in [facility]. No admit order yet. PACU Rns saw the warning note when trying to transfer the patient without admit orders. PACU staff will reach out to vascular doctor and VISUAL TRAINING AIDE for the order. [facility] Work Phone: [phone]) 589-650401-19-2024 Nurse Note* Ron Mancera RN - 03/05/2023 1:58 PM EST Informed PACKAGE CAR DRIVER to ask Dr. Magaña for admit orders prior to transfer. [facility] Work Phone: [phone] 193-937901-19-2024 Note* Perioperative Nursing Note - Samantha Fields RN - 03/05/2023 1:52 PM EST Patient meets PACU discharge criteria. [facility]01-19-2024 Note* Perioperative Nursing Note - Samantha Fields RN - 03/05/2023 1:07 PM EST Patient to PACU bay 7 with left radial art line in place. Zeroed and waveforms appropriate. Clean/dry and intact. VSS. [facility] Work Phone: [phone] 502-193001-19-2024 Note* Op Note - Sherry Magaña MD [...] Procedures Release Median Arcuate Ligament by LAPAROTOMY [id number] - [place] UNLISTED PX ABDOMEN MUSCULOSKELETAL SYSTEM Surgeons * Sherry Magaña - Primary Resident/Fellow/Other Immigration Associate: Surgeon(s) and Role: Procedure Summary Anesthesia: General ASA: III Anesthesia Staff: Anesthesiologist: Serena George DO OUTSIDE LABORER: Maricruz Yip APRN-THOMAS Estimated Blood Loss: 2mL [...] EXAM Sherry Magaña MD 03/05/2023 1125 Staff: Turf Sales Person: Mary Mccabe RN; Natalie Young RN Scrub Person: Nadia Escobedo; Thu Ford Drains and/or Catheters: NG/OG/Feeding Tube NG - Jennings sump 16 Fr Right nostril (Active) Tube [...] MEMBRANE, SEPRAFILM, 5 X 6 IN - [id number] Implanted Findings: heavily inflammed ligamentous tissues and [...] scrubbed for the entire procedure. 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 She was seen at [facility] by Dr. Kat and underwent an [...] She had a CT angiogram recently at [facility] but this is not available for [...] is with Dr. Ramos over the [facility]. Currently any oral intake will [...] to review the CT angiogram done at [facility]. She is going to undergo a [...] UGIS. Will discuss with Dr. Deacon Kat. [facility] Work Phone: 1(228) 788-437712-14-2023 NoteHNO ID: [id number] Author: Rylee Thacker APRN.OPERATIONAL TRAINER Service: ? Author Type: Nurse Practitioner Type: Progress Notes Filed: 01/28/2023 3:12 PM Note Text: [facility] Miscellaneous Notes* Telephone Encounter - Laura Rodas RN - 01/18/2023 9:20 AM EST Call placed to [facility] to confirm received potassium orders for (K-2.9). No answer and left message for cami Sidhu from [facility]. (Do not feel Dr. Kat is managing TPN as well) * Telephone Encounter - Dorita Manning - 01/15/2023 11:47 AM EST [facility] called regarding potassium level. Level was 2.9. Patient already on max dose of potassium allowed with her TPN. They are asking for recommendations # [phone] documented in this encounterGreene [facility] Hospital11-27-2023 Miscellaneous Notes* Telephone Encounter - Joaquín [...] if so ok to call her back [phone] Ok to leave a message documented in this encounterGreene Memorial Hospital11-27-2023 Miscellaneous Notes* Telephone Encounter - Fern Jonas LPN - 01/11/2023 10:49 AM EST Surg request placed, pt aware, instructions given verbally and via mychart, all questions and concerns addressed. documented in this encounterGreene Memorial Hospital11-27-2023 NoteHNO ID: [id number] Author: Fern Jonas LPN Service: ? Author Type: LICENSED NURSE Type: Progress Notes Filed: 01/11/2023 10:42 AM Note Text: Please verify and cosign [facility] History of Present illness Narrative* Fern Jonas LPN - 01/11/2023 10:37 AM EST Please verify and cosign Fern Jonas LPN documented in this encounterGreene [facility] Hospital11-24-2023 [facility]11-[facility] History of Present illness Narrative* Vic Ramos [...] Bilateral arthroscopic knee surgery- was catcher in [facility] PAST SURGICAL HISTORY OF 08/2020 gastric sleeve [...] which included preparing to see the patient, akzr-om-rjgp patient care, completing clinical documentation, obtaining and/or reviewing separately obtained history, counseling and educating the patient/family/caregiver, ordering medications, stevan ts, or procedures, communicating with other HCPs (not separately reported), independently interpreting results (not separately reported), communicating results to the patient/family/caregiver, and care coordination (not separately reported). Vic Ramos MD January 08, 2023 documented in this encounterGreene Memorial Hospital11-22-2023 Miscellaneous Notes* Telephone Encounter - Clarence [...] to pain for visit. documented in this encounterGreene Memorial Hospital11-16-2023 Hospital Discharge instructions Patient Education 12/31/2022 [...] oral rehydration solution (ORS). This is an yttl-xri-kodtwlm medicine that helps return your body to [...] drinks, sports drinks, and soda. Eat bland, jsqx-gk-edhhpr foods in small amounts as you are able. These foods include bananas, applesauce, rice, lean meats, toast, and crackers. Avoid alcohol. Avoid spicy or fatty foods. Medicines Take hlct-eem-vhmerzd and prescription medicines only as told by your health care provider. If you were prescribed an antibiotic medicine, take it as told by your health care provider. Do notstop using the antibiotic even if you start to feel better. General instructions Wash your hands often using soap and water. If soap and water are not available, use a hand quality control lab tech. Others in the household should wash their [...] soap and water are not available, usehand quality control lab tech. Contact a health care provider if your diarrhea gets worse or you have new symptoms. Get help right away if you have signs of dehydration. This information is not intended to replace advice given to you by your health care provider. Make sure you discuss any questions you have with your health care provider. Document Revised: 08/13/2021 Document Reviewed: 08/13/2021 [employer] Patient Education 2022 [employer] 12/31/2022 16:02:59 Abdominal Pain, Adult Abdominal Pain, [...] Follow these instructions at home: Medicines Take fzkk-oni-pxfsdvj and prescription medicines only as told by [...] Watch your condition for any changes. Take sbxy-nko-sjhsets and prescription medicines only as told by [...] provider. Document Revised: 03/22/2020 Document Reviewed: 06/12/2019 [employer] Patient Education 2022 [employer]. Follow Up Care 12/31/2022 12:31:54 With:Jaquan Morrow Address: [address] [place], [place] [id number] Business (1) When:01/03/2023 15:35:16 [facility]11-16-2023 Evaluation + Plan noteExtracted from: Title:ED [...] Date:01/20/2023 10:00:00 AM Scheduled Provider:Rajni Rouse MD Location:[facility] Appointment Type:URO Office Visit Future Scheduled Tests Radiology* US Renal 06/10/22 [facility]11-13-2023 Miscellaneous Notes* Telephone Encounter - Shanique Manning HUC - 12/28/2022 4:05 PM EST BMI Incoming Patient Nursing Line Call Summary: Situation/Concerns Melisa Potter's called [phone] called and said Abbey needs a RTWletter [...] Telephone Encounter. CHRIS Katz documented in this encounterGreene Memorial Hospital10-30-2023 History of Present illness Narrative* Deacon [...] visit. Either the patient or their legal union representative has been informed of the risks [...] opinion. Deacon Kat MD documented in this encounterGreene [facility] Hospital10-30-2023 [facility]20[facility]-2023 [facility]10-25-2023 [facility]10-24-2023 Note [facility]10-23-2023 [facility]10-23-2023 [facility]10-23-2023 [facility] 12-04-2022 History and physical note* Agustin Zamorano [...] was started since her last admission to [facility] last week. Patient's weight has been [...] Bilateral arthroscopic knee surgery- was catcher in [employer] PAST SURGICAL HISTORY OF 08/2020 gastric sleeve [...] 12/16/2022 Time: 2:19 PM documented in this encounterGreene Memorial Hospital10-19-2023 Miscellaneous Notes* Telephone Encounter - Oliva Dobbs RN - 12/03/2022 2:00 AM EDT BMI SPECIALTY CARE COORDINATION TELEPHONE ENCOUNTER Patient hospitalized 11/27 unsure if d/c. Referred to Dr Kat who referred to Dr Zamorano [facility] of hypothyroidism, HTN, gastric ulcer, [...] for MALS- plans for surgical intervention at [facility] Consult scheduled with Dr Zamorano on 12/04. Will r/s if pt still in house. 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 Patient received a PICC line for home TPN to bridge her to surgery. Patient is scheduled with Dr. Zamorano for virtual consult 12/04/2022. Patient with increasednausea with TPN, [facility] continues to adjust medications. Li Kimball RN documented in this encounterGreene Memorial Hospital10-14-2023 NoteHNO ID: [id number] Author: Note, Interface Service: ? Author Type: ? Type: Progress Notes Filed: 11/28/2022 5:10 AM Note Text: Epic Scheduled Downtime: 11/28/2022 1:00:00 AM to 11/28/2022 1:28:00 [facility]10-14-2023 NoteHNO ID: [id number] Author: Note, Interface Service: ? Author Type: ? Type: Progress Notes Filed: 11/28/2022 3:45 AM Note Text: Epic Scheduled Downtime: 11/28/2022 1:00:00 AM to 11/28/2022 1:28:00 [id number] NoteHNO ID: [id number] Author: Note, Interface Service: ? Author Type: ? Type: Progress Notes Filed: 11/28/2022 3:27 AM Note Text: Epic Scheduled Downtime: 11/28/2022 1:00:00 AM to 11/28/2022 1:28:00 [facility]10-12-2023 NoteHNO ID: [id number] Author: Quyen Deshpande RN Service: ? Author Type: Registered Nurse Type: Progress Notes Filed: 11/26/2022 10:37 AM Note Text: Patient in office for hydration infusion. Patient tolerated infusion well. [id number] Miscellaneous Notes* Telephone Encounter - Kristin Hu RN - 11/25/2022 12:55 PM EDT Left message confirming pts appt tomorrow in the chronic care clinic for hydration. documented in this encounterGreene Memorial Hospital10-09-2023 Miscellaneous Notes* Telephone Encounter - Li Kimball RN - 11/23/2022 2:26 PM EDT Mesenteric ultrasound scheduled for 11/26/2022 at [facility], patient notified. Li Kimball RN * [...] pain. Li Kimball RN documented in this encounterGreene Memorial Hospital10-08-2023 [facility] 11-22-2022 [facility] [id number] NoteNorth Adams Regional [id number] NoteHNO ID: [id number] Author: Rajni Walsh RN Service: ? Author Type: Registered Nurse Type: Nursing Progress Note Filed: 11/18/2022 10:13 AM Note Text: Other: C/o ultram not working.Will see about another order.Urine was sent to lab.Will reassess.[facility] [id number] NoteNorth Adams Regional [id number] Miscellaneous Notes* Telephone Encounter - Li Kimball RN - 11/16/2022 11:51 AM EDT Patient called and states she continues to have abdominal pain and is asking for a Tramadol prescription. Patient also asking for IV fluids as her fluid intake is still not normal. Li Kimball RN documented in this encounterGreene Memorial Hospital09-28-2023 [facility] 11-12-2022 NoteNorth Adams Regional [id number] [facility]09-27-2023 History of Past illness Narrative* Problem [...] of this encounter (statuses as of 11/17/2022) [facility] History of Past illness Narrative* Problem [...] of this encounter (statuses as of 11/18/2022) [facility] History of Past illness Narrative* Problem [...] of this encounter (statuses as of 11/21/2022) [facility] History of Past illness Narrative* Problem [...] of this encounter (statuses as of 11/24/2022) [facility] History of Past illness Narrative* Problem [...] of this encounter (statuses as of 11/25/2022) [facility] of Past illness Narrative* Problem [...] of this encounter (statuses as of 11/27/2022) [facility] History of Past illness Narrative* Problem [...] of this encounter (statuses as of 12/02/2022) [facility] History of Past illness Narrative* Problem [...] of this encounter (statuses as of 12/03/2022) [facility] History of Past illness Narrative* Problem [...] of this encounter (statuses as of 12/15/2022) [facility] History of Past illness Narrative* Problem [...] of this encounter (statuses as of 12/15/2022) [facility]09-27-2023 History of Past illness Narrative* Problem [...] of this encounter (statuses as of 12/17/2022) [place] [id number] History of Past illness Narrative* Problem Noted [...] of this encounter (statuses as of 12/31/2022) [facility] History of Past illness Narrative* Problem [...] of this encounter (statuses as of 01/06/2023) [facility] History of Past illness Narrative* Problem [...] of this encounter (statuses as of 01/08/2023) [facility] History of Past illness Narrative* Problem [...] of this encounter (statuses as of 01/11/2023) [facility] History of Past illness Narrative* Problem [...] of this encounter (statuses as of 01/11/2023) [facility] History of Past illness Narrative* Problem [...] of this encounter (statuses as of 01/12/2023) [facility] History of Past illness Narrative* Problem [...] of this encounter (statuses as of 01/18/2023) [facility] of Past illness Narrative* Problem [...] of this encounter (statuses as of 01/18/2023) [facility] of Past illness Narrative* Problem [...] of this encounter (statuses as of 04/07/2023) [facility] History of Past illness Narrative* Problem [...] of this encounter (statuses as of 05/05/2023) [facility] History of Past illness Narrative* Problem [...] of this encounter (statuses as of 05/07/2023) [facility] History of Past illness Narrative* Problem [...] of this encounter (statuses as of 05/10/2023) [facility] of Past illness Narrative* Problem [...] of this encounter (statuses as of 05/18/2023) [facility] History of Past illness Narrative* Problem [...] of this encounter (statuses as of 05/27/2023) [facility] History of Past illness Narrative* Problem [...] of this encounter (statuses as of 05/28/2023) [facility] History of Past illness Narrative* Problem [...] of this encounter (statuses as of 05/28/2023) [facility] History of Past illness Narrative* Problem [...] of this encounter (statuses as of 05/30/2023) [facility] History of Past illness Narrative* Problem [...] of this encounter (statuses as of 06/02/2023) [facility]09-25-2023 Miscellaneous Notes* Telephone Encounter - Li Kimball RN - 11/09/2022 4:40 PM EDT Patient notified that surgery has to be moved to Wednesday as gastroenterology is no longer available to assist. I encouraged the patient to come to [place] ED if pain worsens or she develops an newor other concerning symptoms. Patient stated understanding and had no further questions. Li Kimball RN documented in [facility] encounter[facility]23 [facility] 11-06-2022 Miscellaneous Notes* Telephone [...] within 10-15 minutes. Patient remains admitted to [facility] and is scheduled for a HIDA [...] questions. Li Kimball RN documented in this encounterGreene [facility]09[facility]23 [facility] 11-06-2022 [facility] [id number] History of Present illness Narrative* Agustin hSeets, RT(R) - 11/06/2022 10:54 AM EDT RADIOLOGY [...] radiation safety can be found usingthis link: [email or web address] SIGNATURE: RT Oj(R) PATIENT NAME: Abbey Garcia DATE: November 06, 2022 TIME: 10:54 AM PAGER/CONTACT #: documented in this encounterGre[facility] History of Present illness Narrative* Deacon [...] healthy appearing mucosa. This was traversed. The avrgn-di-kewibaf limb was characterized by healthy appearing mucosa. [...] YELLOW YELLOW APPEARANCE, URINE CLEAR CLEAR Specific [place], Urine 1.010 - 1.025 1.020 PH URINE [...] Moderate Deacon Kat MD documented in [facility] encounterGre[facility]09-[facility]23 Miscellaneous Notes* Telephone Encounter - [...] on Haroon Seay APRN.CNP documented in this encounterGreene [facility]09[facility] Emergency department Note * Dayanara Montana RN - 11/02/2022 11:55 AM EDT Pt states that her pain is getting worse along with her nausea [facility]09-18-2023 Emergency department Note* Dayanara Montana [...] CT scans showing possible kidney stones near [facility], here today because hands turned brown) JANINE Garcia is a 32 y.o. female who presents with abdominal pain. Patient has had multiple weeks of abdominal pain. She has had multiple ER visits in [facility]. She had multiple CT scans with no [...] Walker MD 11/02/22 1325 documented in [facility] Emergency [facility] Note* Dayanara Montana RN - 11/02/2022 11:44 AM EDT Pt requesting to use the restroom and wants assistance. Stand by assist given pt walk with a slow steady gait at this time without difficulty [facility]09-18-2023 Physician Emergency department Note* Dimitri Walker MD - 11/02/2022 10:55 AM EDT DEPARTMENT OF EMERGENCY MEDICINE CHIEF COMPLAINT Abdominal Pain (Reports has been seen a couple of times with CT scans showing possible kidney stones near [facility], here today because hands turned brown) JANINE Garcia is a 32 y.o. female who presents with abdominal pain. Patient has had multiple weeks of abdominal pain. She has had multiple ER visits in [facility]. She had multiple CT scans with no [...] bypass surgeon. Dimitri Walker MD 11/02/[address] [facility]09-16-2023 Hospital Discharge instructions* Discharge Instructions* [...] sent through Care Everywhere. * Back: Strain (Croatian) [facility] 10-26-2022 [facility] [id number] History of Past illness Narrative* Problem Noted [...] of this encounter (statuses as of 10/28/2022) [facility]09[facility]10[facility] History of Past illness Narrative* Problem [...] of this encounter (statuses as of 11/03/2022) [facility] History of Past illness Narrative* Problem [...] of this encounter (statuses as of 11/03/2022) [facility] History of Past illness Narrative* Problem [...] of this encounter (statuses as of 11/03/2022) [facility] History of Past illness Narrative* Problem [...] of this encounter (statuses as of 11/03/2022) [facility] History of Past illness Narrative* Problem [...] of this encounter (statuses as of 11/04/2022) [facility] History of Past illness Narrative* Problem [...] of this encounter (statuses as of 11/04/2022) [facility] History of Past illness Narrative* Problem [...] of this encounter (statuses as of 11/05/2022) [facility] History of Past illness Narrative* Problem [...] of this encounter (statuses as of 11/05/2022) [facility] History of Past illness Narrative* Problem [...] of this encounter (statuses as of 11/06/2022) [facility] History of Past illness Narrative* Problem [...] of this encounter (statuses as of 11/06/2022) [facility] History of Past illness Narrative* Problem [...] of this encounter (statuses as of 11/10/2022) [facility]10-2023 [facility] [id number] Miscellaneous Notes* Telephone Encounter - Li Kimball [...] Li Kimball RN * Telephone Encounter - iL Kimball RN - 10/20/2022 1:44 PM EDT [...] nausea vomiting and pain return call to [phone] documented in this encounterGreene [facility]09-[facility]23 Hospital Discharge instructions Patient Education 10/20/2022 [...] medicines. These include steroids, antibiotics, and some azmo-mqh-dnuskjb medicines, such as aspirin or ibuprofen. Having [...] Follow these instructions at home: Medicines Take grqk-chc-kqbvlrf and prescription medicines only as told by [...] provider. Document Revised: 06/07/2021 Document Reviewed: 06/07/2021 PostRank Patient Education 2022 [employer]. 10/20/2022 12:40:07 Abdominal Pain, Adult Abdominal Pain, [...] Follow these instructions at home: Medicines Take txyk-fdc-curgxib and prescription medicines only as told by [...] Watch your condition for any changes. Take rmkp-aoa-wdnlozy and prescription medicines only as told by [...] provider. Document Revised: 03/22/2020 Document Reviewed: 06/12/2019 PostRank Patient Education 2022 [employer]. Follow Up Care 10/20/2022 08:06:19 With:Jaquan Morrow Address: [address] [place] [address] Business (1) When:10/23/2022 12:06:27 [facility]09-04-2023 Evaluation + Plan noteExtracted from: Title:ED Note Author:Earnest Jett DO Date:10/19 Abdominal pain (R10.9: Unspe cified abdominal pain) Ordered: acetaminophen-oxycodone, 1 tab(s), Oral, q6hr for 3 day(s), 10 tab(s), Refill(s) 0, [facility]/pharmacy #[id number], 168, cm, 10/19/22 8:44:00 EDT, Height/Length Dosing, [...] nausea, # 10 tab(s), Refills(s) 0, Pharmacy: [facility]/pharmacy #[id number], 168, cm, 10/19/22 8:44:00 EDT, [...] QID, # 280 mL, Refills(s) 0, Pharmacy: [facility]/pharmacy #[id number], 168, cm, 10/19/22 8:44:00 EDT, Height/Length Dosing, 85.6, kg, 10/19/22 8:44:00 EDT, Weight Dosing Automated Diff Basic Metabolic Panel CBC w/ Auto Diff eGFR Extra Blue Tube Extra SST Tube Hepatic Function Panel Lipase Level TSH With T4fr Reflex UA With Cult Reflex XR Chest 2 Views Future Appointments Appointment Date:11/20/2022 02:40:00 PM Scheduled Provider: Location:[facility] Appointment Type: Lab Draw Appointment Date:01/20/2023 10:00:00 AM Scheduled Provider:Rajni Rouse MD Location:[facility] Appointment Type:URO Office Visit Future Scheduled Tests Laboratory* T3 Free 10/07/22 * Thyroid Stimulating Hormone 10/07/22 * Free T4 10/07/22 Radiology* US Renal 06/10/22 [facility]09-04-2023 Hospital Discharge instructions Follow Up Care 10/19/2022 08:31:02 With:Jon Rivera Address: [address] [place] [address], [facility] [address] [phone]- [phone] Business (1) When:10/22/2022 13:40:06 With:Your GI physician Address:Unknown When:10/22/2022 13:40:01 With:Jaquan Morrow Address: [address] [place], [place] [id number] Business (1) When:Within 3 Day(s) [facility]08-31-2023 Miscellaneous Notes* Telephone Encounter - Ria [...] and advise. Grecia Wallace documented in this encounterGreene [facility] Hospital08-21-2023 History of Present illness Narrative* [...] Focused Psychotherapy, Supportive Therapy PROGRESS TO DATE: Purchasing Department Clerk Progress: Stable Short Term Condition: Stable GOALS/OBJECTIVES/INTERVENTIONS: To identify and implement tools for effectively managing symptoms of anxiety, stress, and low mood. Approximately 45 minutes were spent with the patient doing therapy. Pablo Lebron PsyD documented in this encounterGreene Memorial Hospital08-14-2023 Instructions* Patient Instructions* Xiomara Zhou RD - [...] Fusion multivitamin soft chews and calcium citrate 4166-0190 mg/day(3 soft chews), and continue Probiotic drink [...] should last 30 minutes. 7. Aim for 0530-7046 calories and 75-100 gm carbs per day Nutrition Monitoring & Evaluation: Maintain BMI < 30 Need for Follow up: 4 months, for conversion anniversary - [phone] documented in this encounterGreene Memorial Hospital08-14-2023 History of Present illness Narrative* Xiomara Zhou RD - 09/28/2022 8:00 AM EDT [facility] Nutrition Therapy: Virtual Consult - Re-assessment I have communicated my name and active licensure. The patient s identity and physical location wereverified at the time of this visit. Either the patient or their legal union representative has been informed of the risks [...] Fusion multivitamin soft chews and calcium citrate 6592-1053 mg/day(3 soft chews), and continue Probiotic drink [...] should last 30 minutes. 7. Aim for 4063-8512 calories and 75-100 gm carbs per day Nutrition Monitoring & Evaluation: Maintain BMI < 30 Need for Follow up: 4 months, for conversion anniversary - [phone] PROGRESS: Interval History: Patient presents for follow [...] the day. Recently started tracking intake on [employer] bre. Consistent, but likely insufficient protein intake. Following Phase 5 diet currently. 6118-5889 calories/day - meeting low-end needs 60-70 gm protein intake/day - falling below recommendations 60-90 oz fluid intake/day - meeting needs Taking all vitamin/minerals, however insufficient calcium citrate. Labs reviewed, unremarkable. Resting Metabolic Rate:1557 Energy needs for weight loss 2690-6534 (15-20 carina/kg current weight) Protein needs: 85 [...] Fusion One a Day multivitamin capsule PLUS 4771-5508 mg calcium citrate 5. Exercise: strive for [...] Garcia DATE: 09/28/2022 TIME: 7:48 AM PAGER: [phone] documented in this encounterGreene Memorial Hospital08-07-2023 History of Present illness Narrative* Pablo [...] importance of working outside house; balance). 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 Animosity from and mom (not enough time at home). Hurt by mom's words wants to communicate, she internalizes. Marital therapy? Appreciative of family help with kids. Sources of support (brother and rcneqg-dp-ysc), close friend High anxiety and panic attacks [...] Focused Psychotherapy, Supportive Therapy PROGRESS TO DATE: Purchasing Department Clerk Progress: Stable Short Term Condition: Stable GOALS/OBJECTIVES/INTERVENTIONS: To identify and implement tools for effectively managing symptoms of anxiety, stress, and low mood. Approximately 45 minutes were spent with the patient doing therapy. Pablo Lebron PsyD documented in this encounterGreene Memorial Hospital08-04-2023 History of Present illness Narrative* Breanna Stern APRN.OPERATIONAL TRAINER - 09/18/2022 3:14 PM EDT BMI SURGERY [...] Total weight loss: 11.3 kg (25 lb) [place] weight: 70.3 kg (154 lb 14.5 oz) Excess weight: 24.5 kg (54 lb 1.5 oz) % of excess body weight lost: 11.3 kg (25 lb) (46.22% of excess weight loss) COMPLICATIONS SINCE LAST VISIT?: NONE EGD 06/23/22 Findings: The examined esophagus was normal. 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 The gastrojejunal anastomosis was characterized by healthy appearing mucosa. This was traversed. The nvqfm-rv-txdfdqr limb was characterized by healthy appearing mucosa. [...] 40 f bougie). This was traversed. The lilyt-az-hkqzszw limb was characterized by healthy appearing mucosa. [...] Level: 4 - Moderate documented in this encounterGreene Memorial Hospital08-04-2023 Nurse Note* Jayla Meza MA - [...] Temperature: No Drains: No documented in this encounterGreene Memorial Hospital06-22-2023 Miscellaneous Notes* Telephone Encounter - Linda [...] the dosing. Thanks, Linda documented in this encounterGreene Memorial Hospital06-14-2023 Hospital Discharge instructions Follow Up Care 07/29/2022 09:18:39 With:Nasim JOHNSON, YUMIKO Lamar, URO Address: [address] [place] [address] [phone] When: Unknown [facility] 06-14-2023 Hospital Discharge instructions Patient Education [...] include: ?8 oz (237 mL) of milk, jfdsqny-hlmaoexavuzs-egckk milk, and calcium- fortifiedfruit juice. Calcium-fortified means [...] ?Spinach (cooked), rhubarb, beets, sweet potatoes, and [place] chard. ?Peanuts. ?Potato chips, croatian fries, and baked potatoes with skin on. ?Nuts and nut products. ?Chocolate. If you regularly take a diuretic medicine, make sure to eat at least 1 or 2 servings of fruits or vegetables that are high in potassium each day. These include: ?Avocado. ?Banana. ?[place], prune, carrot, or tomato juice. ?Baked potato. [...] magnesium, fish oil, or vitamin B6. Take exrd-xpd-sjjmchz and prescription medicines only as told by [...] Casseroles. Pizza. Lasagna. Frozen meals. Potato chips. Egyptian fries. The items listed above may not [...] provider. Document Revised: 10/13/2021 Document Reviewed: 10/13/2021 PostRank Patient Education 2022 [employer]. Follow Up Care 06/30/2022 09:39:02 With:Nasim JOHNSON, Rajni Ballesteros, URL, URO Address: When: Unknown [facility] 06-13-2023 Instructions* Patient Instructions* Samara Evans [...] blistering or peeling skin. documented in this encounterGreene Memorial Hospital06-13-2023 History of Present illness Narrative* Samara [...] Past Histories independently gathered by the clinical software support technician, and the remaining scribed note [...] visit. Samara Evans MD documented in this encounterGreene Memorial Hospital06-08-2023 Miscellaneous Notes* Telephone Encounter - Linda [...] denying [employer] authorization Full letter scanned in [employer] for review Grecia Wallace * Telephone Encounter [...] 07/23/2022 8:49 AM EDT Fax received from [facility] to notify [employer] not covered, will need PA or prescribe alternative: Linzess, Trulance or Amitza Fax scanned in [employer] Grceia Wallace documented in this encounterGreene Memorial Hospital06-07-2023 History of Present illness Narrative* Donnie David MD - 07/22/2022 5:41 PM EDT Conjunctivitis, Allergic 4 days ago, developed right sided blanching, confluent red rash on right side of face. Very itchy. No new medications, unusual contact, farmers were sprarying mera Has kids at home - none of them have anything unusual No bug bites No APD, no EOM restirciton, hertels at 97, full color plates - no [...] with cornea provider or optom- closer to [place] - Will sendmessage Return precautions were discussed in detail Plan reviewed with the patient who verbalizes understanding Donnie David MD Ophthalmology Resident documented in this encounterGreene Memorial Hospital06-07-2023 History of Present illness Narrative* Kasie [...] lesion. Mild degenerative changes. Lower thorax: Unremarkable. Research Consultant (topogram) images: No additional findings. CT ABD/PEL [...] Tissues: No acute abnormality. Lower thorax: Unremarkable. Research Consultant (topogram) images: No additional findings. US ABD [...] healthy appearing mucosa. This was traversed. The jbqij-vv-cysdbek limb was characterized by healthy appearing mucosa. [...] 40 f bougie). This was traversed. The vqhkr-bg-gnezoqd limb was characterized by healthy appearing mucosa. [...] * 95th percentile PH IMPEDANCE INSERT ON [facility] 01/07/21 Interpretation / Findings : Abnormal study. [...] ceroid-laden histiocytes. There is no interface activity. [place] bile duct branches are identified in nearly [...] MD July 22, 2022 documented in this encounterGreene Memorial Hospital05-06-2023 History of Past illness Narrative* Problem Noted Date Resolved Date Intractable nausea and vomiting 06/20/2022 06/23/2022 Acute abdominal pain 12/21/2020 06/23/2022 Obesity 09/03/2020 11/29/2020 Abdominal pain 02/01/2020 04/08/2020 Moderate episode of recurrent major depressive d isorder 11/21/2019 01/03/2020 Obesity, Class II, BMI 35-39.9 10/13/2019 1 Last Assessment & Plan: Assessment: BMI 38.74 documented as of this encounter (statuses as of 07/22/2022) [facility] History of Past illness Narrative* Problem Noted Date Resolved Date Intractable nausea and vomiting 06/20/2022 06/23/2022 Acute abdominal pain 12/21/2020 06/23/2022 Obesity 09/03/2020 11/29/2020 Abdominal pain 02/01/2020 04/08/2020 Moderate episode of recurrent major depressive d isorder 11/21/2019 01/03/2020 Obesity, Class II, BMI 35-39.9 10/13/2019 1 Last Assessment & Plan: Assessment: BMI 38.74 documented as of this encounter (statuses as of 07/22/2022) [facility] History of Past illness Narrative* Problem Noted Date Resolved Date Intractable nausea and vomiting 06/20/2022 06/23/2022 Acute abdominal pain 12/21/2020 06/23/2022 Obesity 09/03/2020 11/29/2020 Abdominal pain 02/01/2020 04/08/2020 Moderate episode of recurrent major depressive d isorder 11/21/2019 01/03/2020 Obesity, Class II, BMI 35-39.9 10/13/2019 1 Last Assessment & Plan: Assessment: BMI 38.74 documented as of this encounter (statuses as of 07/23/2022) [facility] of Past illness Narrative* Problem Noted Date Resolved Date Intractable nausea and vomiting 06/20/2022 06/23/2022 Acute abdominal pain 12/21/2020 06/23/2022 Obesity 09/03/2020 11/29/2020 Abdominal pain 02/01/2020 04/08/2020 Moderate episode of recurrent major depressive d isorder 11/21/2019 01/03/2020 Obesity, Class II, BMI 35-39.9 10/13/2019 1 Last Assessment & Plan: Assessment: BMI 38.74 documented as of this encounter (statuses as of 07/23/2022) [facility] of Past illness Narrative* Problem Noted Date Resolved Date Intractable nausea and vomiting 06/20/2022 06/23/2022 Acute abdominal pain 12/21/2020 06/23/2022 Obesity 09/03/2020 11/29/2020 Abdominal pain 02/01/2020 04/08/2020 Moderate episode of recurrent major depressive d isorder 11/21/2019 01/03/2020 Obesity, Class II, BMI 35-39.9 10/13/2019 1 Last Assessment & Plan: Assessment: BMI 38.74 documented as of this encounter (statuses as of 08/03/2022) [facility] of [facility] illness Narrative* Problem Noted Date Resolved Date Intractable nausea and vomiting 06/20/2022 06/23/2022 Acute abdominal pain 12/21/2020 06/23/2022 Obesity 09/03/2020 11/29/2020 Abdominal pain 02/01/2020 04/08/2020 Moderate episode of recurrent major depressive d isorder 11/21/2019 01/03/2020 Obesity, Class II, BMI 35-39.9 10/13/2019 1 Last Assessment & Plan: Assessment: BMI 38.74 documented as of this encounter (statuses as of 08/06/2022) [facility] Narrative* Problem [...] of this encounter (statuses as of 09/19/2022) [facility] Narrative* Problem [...] of this encounter (statuses as of 09/22/2022) [facility] illness Narrative* Problem [...] of this encounter (statuses as of 09/28/2022) [facility] Narrative* Problem [...] of this encounter (statuses as of 10/06/2022) [facility] Narrative* Problem [...] of this encounter (statuses as of 10/15/2022) [facility] Narrative* Problem [...] of this encounter (statuses as of 10/21/2022) [facility] Narrative* Problem [...] of this encounter (statuses as of 12/21/2022) [facility] of Present illness Narrative* Aliyah [...] advised she may send a message on GENBAND if she has any additional questions. Aliyah Washburn PA-C Orthopaedic & Rheumatologic [facility] Date: June 18, 2022 Time: [...] No Swollen Glands: No documented in this encounterGreene Memorial Hospital04-28-2023 History of Present illness Narrative* Aliyah Washburn PA-C - 06/12/2022 10:26 AM EDT Images from the original note were not included. Rheumatology Outpatient Clinic Date of Service: 06/12/2022 Patient: Abbey Garcia Medical Record: [id number] Primary Care Physician: Wally Foley MD Last [facility] Referring Provider: HENNY Marcus [address] [place] [address] Consultation requested by Agustin Valentino for an [...] hypothyroidism. Reports she has not seen her broomcorn sorter recently. She reports symptoms are interrupted by [...] 2 Antichromatin nega <0.2 RF negative <10 LEAD MEDICAL TECHNOLOGIST 0.3 SSA <0.2 SSB <0.2 Mc <0.2 [...] symmetric on resisted finger separation and hand ergonomics engineer Knees FROM Ankles FROM No MTP squeeze [...] insufficiency and hypothyroidism. She has not seen broomcorn sorter. Would like to rule out endocrine causes [...] which included preparing to see the patient, jhxa-dm-uhzn patient care, completing clinical documentation, obtaining and/or reviewing separately obtained history, performing a medically appropriate examination, counseling and educating the pat ient/family/caregiver, and ordering medications, tests, or procedures. Aliyah Washburn PA-C Orthopaedic & Rheumatologic [facility] Date: June 12, 2022 Time: 10:26 AM documented in this encounterGreene [facility] Hospital04-26-2023 Hospital Discharge instructions Patient Education 06/10/2022 [...] you until you feel stable. Medicines Take ivuz-xzg-iaofukk and prescription medicines only as told by [...] provider. Document Revised: 06/12/2021 Document Reviewed: 06/12/2021 PostRank Patient Education 2022 [employer]. 06/10/2022 17:05:57 Nonspecific Chest Pain, Adult Nonspecific [...] Follow these instructions at home: Medicines Take byyn-ptc-pyizekr and prescription medicines only as told by [...] provider. Document Revised: 04/17/2021 Document Reviewed: 04/17/2021 PostRank Patient Education 2022 [employer]. Follow Up Care 06/10/2022 12:31:10 With:Chetna Jack Address: [address] [place] [phone] Business (1) When:06/13/2022 17:03:30 Comments:Schedule event loop recorder as well as echocardiogram with central scheduling and then follow-up with shredder/granulator operator Dr. Jack With:Jaquan Morrow Address: [address] [place] [phone]- Business (1) When:06/13/2022 17:03:46 Comments:Call the office [...] you develop any new or worsening symptoms. [facility]01-20-2023 Nurse Note* Eli Carter RN - [...] None REFERRAL (RECOMMENDATION): None documented in this encounterGreene [facility] Hospital01-19-2023 Miscellaneous Notes* Telephone Encounter - Victor M Dennis - 03/05/2022 11:54 AM EST Spoke with the patient confirmed 1:45 arrival time for 2:45 appointment at [facility]. Victor M Dennis * Telephone Encounter - Li Kimball RN - 03/05/2022 10:31 AM EST I called patient and left a message with EGD appointment instructions and location. Call back number provided. Li Kimball RN documented in this encounterGreene Memorial Hospital01-19-2023 Instructions* Patient Instructions* Breanna Stern APRN.CNP - 03/05/2022 10:18 AM EST I have asked scheduling to add you on for an appointment in 2 months for your regular follow up, we'll check your labs at that time. (I've ordered them, no need to fast) We may need to see you sooner based on results of your EGD documented in this encounterGreene Memorial Hospital01-19-2023 History of Present illness Narrative* Breanna Stern, PAPER SORTER AND COUNTER.OPERATIONAL TRAINER - 03/05/2022 9:31 AM EST BMI SURGERY [...] Total weight loss: 19.1 kg (42 lb) Huntley weight: 70.3 kg (154 lb 14.5 oz) [...] Orders Breanna Stern APRN.BETH documented in this encounterGreene Memorial Hospital12-30-2022 History of Present illness Narrative* Kuldip [...] taking tylenol for her pain. PHYSICAL EXAM: [facility] 08/19/2020 General: Appears stated age, well [...] lateral patellar facet. Bilateral PF crepitance IMPRESSION: (Y60.191L) Acetabular labrum tear, right, subsequent encounter (primary encounter diagnosis) PLAN: 1. Medication: None. 2. Test(s)/Imaging/Referral(s): None. 3. Intervention: Continue conservative treatment. Objectively, patients hip is doing well post op. She has been dealing with a right knee injury as well (images were uploaded in the system today). She saw a provider in the [place] area who recommended her have an osteotomy. 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 We discussed the option of seeing Dr. Gutierres for a second opinion as patient is eager to see someone through [facility]. We will help her set [...] Past Histories independently gathered by the clinical software support technician and the remaining scribed note accurately describes my personal service to the patient. Kuldip Yousif MD documented in this encounterGreene Memorial Hospital12-30-2022 History of Present illness Narrative* Dimitri Fischer, RT(R) - 02/13/2022 10:10 AM EST Radiology Service Progress Note PATIENT NAME: Abbey Garcia DATE OF SERVICE: February 13, 2022 TIME: 10:11 AM PATIENT IDENTITY VERIFICATION COMPLETED USING TWO (2) IDENTIFIERS: Name and Date of confirmedby patient verbally. FALL SCREENING: Has the patient had 2 falls in the last year or 1 fall with injury or currently using an Ambulatory Assistive Device (Walker, Cane, Wheelchair, Crutches, etc.)? No PATIENT GENDER DATA: Female. status: : No status: NO. PATIENT RELEVANT IMPLANT DATA REVIEWED: Not Applicable RADIOLOGY DEPARTMENT: General X-ray: Exam(s) Completed: Pelvis X-Ray: Pelvis with Hip Right PERIPHERAL IV DATA: Not applicable SIGNED BY: RT Arely(R) February 13, 2022 10:11 AM documented in this encounterGreene Memorial Hospital12-22-2022 Miscellaneous Notes* Telephone Encounter - Li [...] nausea. Li Kimball RN documented in this encounterGreene Memorial Hospital12-21-2022 History of Present illness Narrative* Nahed Tamez, DADA - 02/04/2022 9:24 AM EST [facility] Nutrition Therapy: Virtual Consult - Re-assessment [...] Fusion One a Day multivitamin capsule PLUS 7270-2077 mg calcium citrate daily) 4. Protein goal: 75-93 grams protein/day. 5. Fluid goal: 64oz per day water. (no calories, no caffeine, no carbonation, no alcohol) 6. Call the BMI department at [phone] to schedule your one month post op nutrition visit for February. Link to book as discussed: https://my.[facility].org/-/scassets/files/org/bariatric/guides/bmiguideboo k-july2019.ashx?la=en Nutrition Monitoring & Evaluation: Adherence to [...] Fusion One a Day multivitamin capsule PLUS 8375-4289 mg calcium citrate 5. Exercise: strive for [...] Garcia DATE: 02/04/2022 TIME: 9:24 AM PAGER: [phone] documented in this encounterGreene Memorial Hospital12-20-2022 Instructions* Patient Instructions* Breanna Stern APRN.CNP [...] your activity as tolerated. documented in this encounterGreene Memorial Hospital12-20-2022 History of Present illness Narrative* Breanna [...] Peña MD LAPAROSCOPY WITH BIOPSY 03/20/2021 Deacon Kta MD LAPAROSCOPY DIAGNOSTIC 01/29/2022 Deacon Kat MD LAPAROSCOPIC GASTROJEJUNOSTOMY W/O VAGOTOMY Visit: 17 months Today's Visit: Wt 93.4 kg (206 lb) BMI 33.25 kg/m2 BMI 33.25 kg/(m^2) Last Visit: Wt: 94.8 kg (209 lb) BMI: 33.73 kg/(m^2) Total weight loss: 15.4 kg (34 lb) Huntley weight: 70.3 kg (154 lb 14.5 oz) [...] visit. Breanna Stern APRN.BETH documented in this encounterGreene Memorial Hospital12-20-2022 Nurse Note* Lucia Ramirez MA - 02/03/2022 2:53 PM EST What is the reason for your visit today? Follow up Who is your referring physician? Are you having poor oral intake? A little Have you had unintentional weight loss of 15 lbs/7 Kg in the last 3-6 months? NO Bowels: regular Wound: Temperature: No Drains: No documented in this encounterGreene Memorial Hospital12-20-2022 Miscellaneous Notes* Telephone Encounter - Li [...] 02/03/2022. Li Kimball RN documented in this encounterGreene Memorial Hospital12-19-2022 Miscellaneous Notes* Telephone Encounter - Li Kimball RN - 02/02/2022 2:39 PM EST See 02/02/2022 MyChart encounter Li Kimball RN * Telephone Encounter - Olga Paul - 02/02/2022 8:46 AM EST Patient called in and will like a refill on pain medication. Patients pharmacy is the [facility] in [place]. 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 Neuro: No history of TIA's, stroke, HAND FORMER tumor, impaired sensorium, hemiplegia, paraplegia or quadraplegia. No neurological symptoms or problems. Respiratory: +RICHAR, asthma Negative for COPD, Current cough, Dyspnea, Home O2, Pneumonia within 6 weeks (date), Wheezing Cardiovascular: +hx HTN during /post , resolved. Negative for Recent VT, Angina, CAD, Chest Pain, CHF, DVT/PE GI: [...] 2022 TIME: 11:05 AM documented in this encounterGreene Memorial Hospital12-08-2022 Instructions* Patient Instructions* Ioana Hogan PA-C - 01/22/2022 11:55 AM EST PATIENT PREOPERATIVE INSTRUCTIONS Deacon Kat MD has scheduled you for your procedure at this surgery center: [facility]: [phone] --[address] [address]. Please check in on the1st floor at [...] Procedures: - YOU MUST HAVE A RESPONSIBLE TITLE CURATIVE SPECIALIST TAKE YOU HOME. A AUDIO EXPERIENCE EXPERT OR CONGRESSIONAL DISTRICT AIDE CANNOT BE MADE A RESPONSIBLE TITLE CURATIVE SPECIALIST. - We recommend that a responsible person stays with you overnight to take care of you. - You cannot stay in a hotel alone after outpatient surgery. You will not be permitted to have yoursurgery, if you do not have someone to take care of you. If you already have an Advance Directive, please fax a copy to [phone] or email to for it to be added to your chart. If you do not have an Advance Directive, you can find the appropriate form and more information at [email or web address]. We recommend that youcomplete the Advance Directive form found on the website and bring it with you the day of your surgery. It can be witnessed and scanned into your chart that day. oIana Hgoan PA-C documented in this encounterGreene Memorial Hospital12-06-2022 Miscellaneous Notes* Telephone Encounter - Li [...] provided. Li Kimball RN documented in this encounterGreene Memorial Hospital11-22-2022 Miscellaneous Notes* Telephone Encounter - Li [...] questions. Li Kimball RN documented in this encounterGreene Memorial Hospital11-18-2022 Instructions* Patient Instructions* Sabina Joy APRN.OPERATIONAL TRAINER - 01/02/2022 11:29 AM EST Images from the original note were not included. Mutually Agreed Upon Goals Eating Plan: [employer] Pal BRE - Log intake 2 [...] BRE for meditation - Mindful Moments by [facility] [employer]. [facility]. Insight Timer https://www.Health & Bliss/health/mental-health/azm-awxyjrtvcx-dlghlh-android-ap ps#our-picks How can I fix my acid [...] but are usually stronger and faster than H7datvewoe. Dietary habits for acid reflux Reduce or [...] Try Breakfast: 1 scrambled egg (75 calories) Croatian muffin (67 calories) Calories per meal: 142 AM Snack & Fluids: *Spread out and sipped between meals 2 cups water (0 calories) 1 cup skim milk or unsweetened soy milk (90 calories) Calories per meal: 90 Lunch: 4 oz canned tuna in water (100 calories) 2 Tbsp fat free ortiz (20 calories) 1 slice low fat [place] cheese (50 calories) 1 slice whole grain [...] after gastric sleeve surgery? (Full meal plan) ([employer]) .kml documented in this encounterGreene Memorial Hospital11-18-2022 History of Present illness Narrative* Sabina Joy APRN.CNP - 01/02/2022 11:00 AM EST BMI OM PostOp Note - Virtual Visit January 02, 2022 [facility] VISIT This Team Access Model visit [...] weight loss: 35 lbs or 14.58 % Huntley weight: 70.3 kg (154 lb 14.5 oz) [...] No current facility-administered medications for this visit. [facility] OBESITY MEDICINE COMORBIDITIES: Obstructive Sleep [...] which included preparing to see the patient, tyzn-ci-sccn patient care, completing clinical documentation, obtaining and/or reviewing separately obtained history, performing a medically appropriate examination, counseling and educating the pat ient/family/caregiver, independently interpreting results (not separately reported), and communicating results to the patient/family/caregiver. Follow up in 6 months. This visit was performed virtually due to the COVID-19 epidemic as an effort to protect patients and minimize exposure. documented in this encounterGreene Memorial Hospital11-17-2022 History of Present illness Narrative* Marisabel Lynn LPN - 01/01/2022 2:41 PM EST 2Name: Abbey Garcia [facility]#: [id number] Date: 01/01/2022 HUERTA 48 HR PH FOLLOW-UP The HUERTA monitor was received today via [employer] transport.. Test data from the segment assembler was downloaded. Events from the patient diary were inserted into the study for physician review. .Marisabel Lynn LPN documented in this encounterGreene Memorial Hospital11-10-2022 History of Present illness Narrative* Marisabel Lynn LPN - 12/25/2021 11:28 AM EST Name: Abbey Garcia [facility]#: [id number] Date: 12/25/2021 48hr HUERTA PH CAPSULE PLACEMENT [...] hours. .Marisabel Lynn LPN documented in this encounterGreene Memorial Hospital11-10-2022 Nurse Note* Raegan Sood RN - [...] RN In Department: GASTROENTEROLOGY documented in this encounterGreene Memorial Hospital11-10-2022 History of Present illness Narrative* Mateusz Kraft Research Coordinator - 12/25/2021 9:45 AM ESTSummary: [id number] Study Title: CASE 3207 Genetic and Environmental [...] Mateusz Kraft Research Coordinator documented in this encounterGreene Memorial Hospital10-05-2022 Miscellaneous Notes* Telephone Encounter - Li Kimball RN - 11/19/2021 10:57 AM EDT I called the patient and left a message for the patient to call [phone], option 0 to schedule the pH Impedence testing. Call back number provided for additional questions or concerns. Li Kimball RN documented in this encounterGreene Memorial Hospital10-03-2022 History of Present illness Narrative* Deacon [...] mcg, Iron 45-60 mg and calcium citrate 9487-5629 mg/day PHYSICAL EXAMINATION General appearance: Well appearing, [...] the date of the service which included ojny-jz-hgvy patient care, completing clinical documentation, obtaining and/or reviewing separately obtained history, counseling and educating the patient/family/caregiver, and ordering medications, tests, or procedures. Deacon Kat MD documented in this encounterGreene Memorial Hospital10-03-2022 Miscellaneous Notes* Telephone Encounter - Grecia Velasquez [facility] - 11/17/2021 11:21 AM EDT Pharmacy fax requesting refills as follows: Patient scheduled for follow up visit Dec 24 Requested Prescriptions Pending Prescriptions Disp Refills famotidine (PEPCID) 40 mg tablet 90 tablet 1 Sig: Take 1 tablet by mouth once daily. Please review and advise. Grecia Wallace documented in this encounterGreene Memorial Hospital09-06-2022 Miscellaneous Notes* Telephone Encounter - Cornel Conrad - 10/21/2021 11:14 AM EDT Do not schedule on 10/[address] Yousif. Cornel Conrad * Telephone Encounter - Cornel Conrad - 10/21/2021 10:10 AM EDT Called patient to reschedule 10/[address] Yousif will be out of the office in the afternoon that day. Per Dr. Yousif, patient can be rescheduled at [facility] on 10/21 between 4:15-5:30 PM [address] on 10/24 from 8 AM - 12 PM. Do not double book slots. Cornel Conrad documented in this encounterGreene Memorial Hospital09-06-2022 Miscellaneous Notes* Telephone Encounter - Slime Nickerson - 10/21/2021 8:25 AM EDT Called patient to reschedule 10/[address] Yousif will be out of the office in the afternoon that day. Per Dr. Yousif, patient can be rescheduled at [facility] on 10/21 between 4:15-5:30 PM or on 10/22 in [place] between 4-6 PM. Do not double book slots. documented in this encounterGreene Memorial Hospital08-25-2022 Instructions* Patient Instructions* Sabina Joy APRN.BETH - 10/09/2021 3:56 PM EDT Images from the original note were not included. Mutually Agreed Upon Goals Eating Plan: [employer] Pal BRE - Log intake 7 days per week. Replace skipped meals with a protein supplement. Bariatric Plate Method Activity: Walking as tolerated. Chair exercises Sleep: No electronic for 30 minutes prior to sleep 2 nights per week. Practice Sleep Hygiene. CPAP nightly Stress: BRE for meditation - Mindful Moments by [facility]. [employer]. [employer] Timer https://www.Health & Bliss/health/mental-health/zcr-ycngsdtmjp-gvqcjr-android-ap ps#our-picks Steps to Follow Bariatric Plate Total [...] own fruit infused price >> lemon or anvik with oranges, blackberries, strawberries and fresh mint, [...] with food. Calcium Citrate with Vitamin D 3948-3112 mg calcium - DO NOT TAKE WITH IRON OR MULTIVITAMIN Vitamin D3 - take 3,000 international unit(s) per day from all sources documented in this encounterGreene Memorial Hospital08-25-2022 History of Present illness Narrative* Sabina [...] 32.28 kg/(m^2) Total weight loss: 42 lbs Huntley weight: 70.3 kg (154 lb 14.5 oz) [...] which included preparing to see the patient, ihep-tg-cqhz patient care, completing clinical documentation, obtaining and/or reviewing separately obtained history, performing a medically appropriate examination, counseling and educating the pat ient/family/caregiver, ordering medications, tests, or procedures, independently interpreting results (not separately reported), and communicating results to the patient/family/caregiver. Medical Decision Making: Level: 1 - N/A Sabina Joy APRN.BETH documented in this encounterGreene Memorial Hospital07-16-2022 Hospital Discharge instructions* Discharge Instructions* Pablo Atwood DO - 08/30/2021 4:11 AM EDT Please take all medications as prescribed and follow-up with your oral surgeon on Wednesday as scheduled. * Attachments The following attachments cannot be sent through Care Everywhere. * Tooth: Abscessed (Croatian) documented in this encounterBON AURORA WEST HOSPITALSpotjournal Work Phone: [phone]) 154-790007-15-2022 Miscellaneous Notes* Telephone Encounter - Justine Shabazz PA-C - 08/29/2021 2:55 PM EDT Pharmacy generated request, refill not appropriate. Justine Shabazz PA-C documented in this encounterGreene Memorial Hospital07-15-2022 Instructions* Patient Instructions* Justine Shabazz PA-C [...] and carry free weights documented in this encounterGreene Memorial Hospital07-15-2022 History of Present illness Narrative* Justine Shabazz PA-C - 08/29/2021 2:16 PM EDT POST OP DISTANCE HEALTH VIRTUAL VISIT DOCUMENTATION NOTE This virtual visit was performed via video enabled technology, and the patient provided consent to be evaluated and managed using this virtual visit and video enabled technology. Distance Health Platform: [employer] Virtual Visit People present : Justine Shabazz [...] Nica Shabazz, MS, PA-C documented in this encounterGreene Memorial Hospital07-14-2022 Instructions* Patient Instructions* Xiomara Zhou, RD - 08/28/2021 8:28 AM EDT 1. [...] Fusion One a Day multivitamin capsule PLUS 3536-2285 mg calcium citrate 5. Exercise: strive for [...] or sooner if needed documented in this encounterGreene Memorial Hospital07-14-2022 History of Present illness Narrative* Xiomara Zhou RD - 08/28/2021 7:54 AM EDT [facility] Nutrition Therapy: Virtual Consult Re-assessment This [...] Fluids: water (64 oz), gatorade zero, Body [place] light Exercise: limited to PT due to [...] Rate: 1635 Energy needs for weight loss 8209-7160 (15-20 carina/kg current weight) Protein needs: 75-93 [...] Fusion One a Day multivitamin capsule PLUS 2196-6224 mg calcium citrate 5. Exercise: strive for [...] by: Xiomara Zhou RD documented in this encounterGreene Memorial Hospital07-08-2022 Evaluation note* Encounter Date Diagnosis Assessment Notes Treatment Notes Treatment Clinical Notes Aug, PTSD (post-traumatic stress disorder) (ICD-10 - F43.10) JJ [facility] Other [id number] Miscellaneous Notes* Telephone Encounter - Grecia Wallace - 08/22/2021 10:40 AM EDT Pharmacy fax requesting refills as follows: patient has a follow up visit 09/24/21 Pending Prescriptions Disp Refills OMEPRAZOLE 40 MG CAPSULE,DELAYED RELEASE 60 capsule 0 Sig: Take 1 capsule by mouth twice daily. ELIJAH: No Please review and advise. Grecia Wallace documented in this encounterGreene Memorial Hospital07-03-2022 Evaluation note* Encounter Date Diagnosis Assessment [...] system will be more sensitive than normal. JJ [facility]ARMA Other [id number] Miscellaneous Notes* Telephone Encounter - Justine Shabazz PA-C - 08/14/2021 2:51 PM EDT Pharmacy generated request, refill not appropriate. Justine Shabazz PA-C documented in this encounterGreene Memorial Hospital06-17-2022 Instructions* Patient Instructions* Justine Shabazz PA-C [...] hyperextension(moving leg backward) and letting your feet hose turner when standing or laying flat- until [...] others. Follow-up: 4 weeks documented in this encounterGreene Memorial Hospital06-17-2022 History of Present illness Narrative* Justine Shabazz PA-C - 08/01/2021 10:55 AM EDT POST OP DISTANCE HEALTH VIRTUAL VISIT DOCUMENTATION NOTE This virtual visit was performed via video enabled technology, and the patient provided consent to be evaluated and managed using this virtual visit and video enabled technology. Sample6 Health Platform: [employer] Virtual Visit People present : Justine Shabazz PA-C and Patient Time Spent for video encounter, record review and documentation: 15 minutes CHIEF COMPLAINT (CC): Post op right hip HISTORY OF PRESENT ILLNESS (HPI): 3 weeks s/p 1. right hip arthroscopy. 2. Acetabuloplasty CPT 75643 3. Labral repair. CPT 88951 4. Femoroplasty. CPT 40677 5. Capsular Closure DOS: 08/10/21 Denies systemic [...] will review MRI right knee (uploaded in [employer]). 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, she [...] hyperextension(moving leg backward) and letting your feet hose turner when standing or laying flat- until [...] Justine Shabazz MS, PA-C documented in this encounterGreene Memorial Hospital05-20-2022 History of Present illness Narrative* Justine [...] signed Imaging: outside MR an XR in [facility] with report scanned - views sufficient PACC: completed 06/24/21 Brace fitting: completed Crutches: has a pair and able to use - instructed she can leave in car DOS Medical considerations - laparoscopic sleeve 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 - down 50 lb Anticoagulation medications: no Pharmacy/ scripts: [facility] - advised will be sent 07/09/21 [...] with Dr Yousif Post op RXs to [facility] 07/09/21 PT 07/11/21 Post op follow up 07/30/21 - ideally virtual Total Time Spent: 8 minutes Justine Shabazz PA-C documented in this encounterGreene Memorial Hospital05-09-2022 History of Present illness Narrative* Justine Shabazz PA-C - 06/23/2021 4:02 PM EDT Surgery scheduling/order review encounter: Jace Duarte ATC 06/23/21 patient update encounter for scheduling right hip scope reviewed: Images reviewed: XR No additional views necessary MRI labral tear Consent initiated Orders reviewed and signed. Chart routed to surgery schedulers Justine Shabazz PA-C * DONAVAN Douglas - 06/18/2021 3:12 PM EDT Spoke with patient in the office regarding scheduling surgery for their right hip with Dr. Yousif Procedure: Right hip arthroscopy - labral repair Date: 07-10-21 XR: correct views Yes (if no updated XR must be [facility] at [facility] to ensure correct views.) Brace fitting: Yes - ( hip brace fit with [facility]O Rep at [facility]) Pre op PT visit required for [...] up) No. Pre op instructions sent via [employer]BAND. DONAVAN Douglas documented in this encounterGreene Memorial Hospital05-04-2022 History of Present illness Narrative* Kuldip Yousif MD - 06/18/2021 11:00 AM EDT x * Kuldip Yousif MD - 06/18/2021 10:23 AM EDT Images from the original note were not included. DEPARTMENT OF ORTHOPAEDICS Consultation as a request of Shanna June NP [address] [facility] [address] Chief Complaint: Right hip pain HISTORY OF [...] Bilateral arthroscopic knee surgery- was catcher in [facility] PICC LINE INSERT/CONSULT 12/24/2020 VAGINAL DELIVERY [...] No history of dysuria, frequency or incontinence NURSERY ATTENDANT: Negative for abnormal vaginal bleeding, abnormal vaginal [...] Past Histories independently gathered by the clinical software support technician and the remaining scribed note accurately describes my personal service to the patient. Kuldip Yousif MD [facility] History of Present illness Narrative* Jani Hernandez RT(R) - 06/18/2021 10:30 AM EDT Radiology Service Progress Note PATIENT NAME: Abbey Garcia DATE OF SERVICE: June 18, 2021 TIME: 10:24 AM PATIENT IDENTITY VERIFICATION COMPLETED USING TWO (2) IDENTIFIERS: Name and Date of confirmedby patient verbally. FALL SCREENING: Has the patient had 2 falls in the last year or 1 fall with injury or currently using an Ambulatory Assistive Device (Walker, Cane, Wheelchair, Crutches, etc.)? No PATIENT GENDER DATA: Female. status: : No status: NO. PATIENT RELEVANT IMPLANT DATA REVIEWED: Not Applicable RADIOLOGY DEPARTMENT: General X-ray: Exam(s) Completed: Pelvis X-Ray: Pelvis with Hip Right PERIPHERAL IV DATA: Not applicable SIGNED BY: RT Breezy(R) June 18, 2021 10:24 AM documented [facility] History of Present illness Narrative* Lucie [...] to that time. [facility] * Encounter Date Diagnosis [...] intake. Mar, Other Asthma material was printed [facility] Other 12-14-2021 Evaluation note* Encounter Date Diagnosis [...] to be seen. Also always know the [facility] Emergency Number is 24 hours a day [...] surgeon after discussing options and treatment locations. [facility] Other 07-20-2021 History of Past illness Narrative* Problem Noted Date Resolved Date Obesity 09/03/2020 11/29/2020 Abdominal pain 02/01/2020 04/08/2020 Moderate episode of recurrent major depressive d isorder 11/21/2019 01/03/2020 Obesity, Class II, BMI 35-39.9 10/13/2019 1 Last Assessment & Plan: Assessment: BMI 38.74 documented as of this encounter (statuses as of 06/18/2021) [facility] History of Past illness Narrative* Problem Noted Date Resolved Date Obesity 09/03/2020 11/29/2020 Abdominal pain 02/01/2020 04/08/2020 Moderate episode of recurrent major depressive d isorder 11/21/2019 01/03/2020 Obesity, Class II, BMI 35-39.9 10/13/2019 1 Last Assessment & Plan: Assessment: BMI 38.74 documented as of this encounter (statuses as of 06/23/2021) [facility] of Past illness Narrative* Problem Noted Date Resolved Date Obesity 09/03/2020 11/29/2020 Abdominal pain 02/01/2020 04/08/2020 Moderate episode of recurrent major depressive d isorder 11/21/2019 01/03/2020 Obesity, Class II, BMI 35-39.9 10/13/2019 1 Last Assessment & Plan: Assessment: BMI 38.74 documented as of this encounter (statuses as of 07/09/2021) [facility] of Past illness Narrative* Problem Noted Date Resolved Date Obesity 09/03/2020 11/29/2020 Abdominal pain 02/01/2020 04/08/2020 Moderate episode of recurrent major depressive d isorder 11/21/2019 01/03/2020 Obesity, Class II, BMI 35-39.9 10/13/2019 1 Last Assessment & Plan: Assessment: BMI 38.74 documented as of this encounter (statuses as of 07/15/2021) [facility] of Past illness Narrative* Problem Noted Date Resolved Date Obesity 09/03/2020 11/29/2020 Abdominal pain 02/01/2020 04/08/2020 Moderate episode of recurrent major depressive d isorder 11/21/2019 01/03/2020 Obesity, Class II, BMI 35-39.9 10/13/2019 1 Last Assessment & Plan: Assessment: BMI 38.74 documented as of this encounter (statuses as of 07/28/2021) [address]20-2021 History of Past illness Narrative* Problem Noted Date Resolved Date Obesity 09/03/2020 11/29/2020 Abdominal pain 02/01/2020 04/08/2020 Moderate episode of recurrent major depressive d isorder 11/21/2019 01/03/2020 Obesity, Class II, BMI 35-39.9 10/13/2019 1 Last Assessment & Plan: Assessment: BMI 38.74 documented as of this encounter (statuses as of 08/01/2021) [address]20-2021 History of Past illness Narrative* Problem Noted Date Resolved Date Obesity 09/03/2020 11/29/2020 Abdominal pain 02/01/2020 04/08/2020 Moderate episode of recurrent major depressive d isorder 11/21/2019 01/03/2020 Obesity, Class II, BMI 35-39.9 10/13/2019 1 Last Assessment & Plan: Assessment: BMI 38.74 documented as of this encounter (statuses as of 08/14/2021) [facility] of Past illness Narrative* Problem Noted Date Resolved Date Obesity 09/03/2020 11/29/2020 Abdominal pain 02/01/2020 04/08/2020 Moderate episode of recurrent major depressive d isorder 11/21/2019 01/03/2020 Obesity, Class II, BMI 35-39.9 10/13/2019 1 Last Assessment & Plan: Assessment: BMI 38.74 documented as of this encounter (statuses as of 08/22/2021) [address]20-2021 History of Past illness Narrative* Problem Noted Date Resolved Date Obesity 09/03/2020 11/29/2020 Abdominal pain 02/01/2020 04/08/2020 Moderate episode of recurrent major depressive d isorder 11/21/2019 01/03/2020 Obesity, Class II, BMI 35-39.9 10/13/2019 1 Last Assessment & Plan: Assessment: BMI 38.74 documented as of this encounter (statuses as of 08/28/2021) [facility] illness Narrative* Problem Noted Date Resolved Date Obesity 09/03/2020 11/29/2020 Abdominal pain 02/01/2020 04/08/2020 Moderate episode of recurrent major depressive d isorder 11/21/2019 01/03/2020 Obesity, Class II, BMI 35-39.9 10/13/2019 1 Last Assessment & Plan: Assessment: BMI 38.74 documented as of this encounter (statuses as of 08/29/2021) [facility] of [facility] illness Narrative* Problem Noted Date Resolved Date Obesity 09/03/2020 11/29/2020 Abdominal pain 02/01/2020 04/08/2020 Moderate episode of recurrent major depressive d isorder 11/21/2019 01/03/2020 Obesity, Class II, BMI 35-39.9 10/13/2019 1 Last Assessment & Plan: Assessment: BMI 38.74 documented as of this encounter (statuses as of 08/29/2021) [facility] illness Narrative* Problem Noted Date Resolved Date Obesity 09/03/2020 11/29/2020 Abdominal pain 02/01/2020 04/08/2020 Moderate episode of recurrent major depressive d isorder 11/21/2019 01/03/2020 Obesity, Class II, BMI 35-39.9 10/13/2019 1 Last Assessment & Plan: Assessment: BMI 38.74 documented as of this encounter (statuses as of 09/02/2021) [place] [address] History of Past illness Narrative* Problem Noted Date Resolved Date Obesity 09/03/2020 11/29/2020 Abdominal pain 02/01/2020 04/08/2020 Moderate episode of recurrent major depressive d isorder 11/21/2019 01/03/2020 Obesity, Class II, BMI 35-39.9 10/13/2019 1 Last Assessment & Plan: Assessment: BMI 38.74 documented as of this encounter (statuses as of 10/09/2021) [facility] illness Narrative* Problem Noted Date Resolved Date Obesity 09/03/2020 11/29/2020 Abdominal pain 02/01/2020 04/08/2020 Moderate episode of recurrent major depressive d isorder 11/21/2019 01/03/2020 Obesity, Class II, BMI 35-39.9 10/13/2019 1 Last Assessment & Plan: Assessment: BMI 38.74 documented as of this encounter (statuses as of 10/09/2021) [facility] illness Narrative* Problem Noted Date Resolved Date Obesity 09/03/2020 11/29/2020 Abdominal pain 02/01/2020 04/08/2020 Moderate episode of recurrent major depressive d isorder 11/21/2019 01/03/2020 Obesity, Class II, BMI 35-39.9 10/13/2019 1 Last Assessment & Plan: Assessment: BMI 38.74 documented as of this encounter (statuses as of 10/21/2021) [facility] Narrative* Problem Noted Date Resolved Date Obesity 09/03/2020 11/29/2020 Abdominal pain 02/01/2020 04/08/2020 Moderate episode of recurrent major depressive d isorder 11/21/2019 01/03/2020 Obesity, Class II, BMI 35-39.9 10/13/2019 1 Last Assessment & Plan: Assessment: BMI 38.74 documented as of this encounter (statuses as of 11/18/2021) [facility] of [facility] illness Narrative* Problem Noted Date Resolved Date Obesity 09/03/2020 11/29/2020 Abdominal pain 02/01/2020 04/08/2020 Moderate episode of recurrent major depressive d isorder 11/21/2019 01/03/2020 Obesity, Class II, BMI 35-39.9 10/13/2019 1 Last Assessment & Plan: Assessment: BMI 38.74 documented as of this encounter (statuses as of 11/18/2021) [facility] of Past illness Narrative* Problem Noted Date Resolved Date Obesity 09/03/2020 11/29/2020 Abdominal pain 02/01/2020 04/08/2020 Moderate episode of recurrent major depressive d isorder 11/21/2019 01/03/2020 Obesity, Class II, BMI 35-39.9 10/13/2019 1 Last Assessment & Plan: Assessment: BMI 38.74 documented as of this encounter (statuses as of 11/19/2021) [facility] Narrative* Problem Noted Date Resolved Date Obesity 09/03/2020 11/29/2020 Abdominal pain 02/01/2020 04/08/2020 Moderate episode of recurrent major depressive d isorder 11/21/2019 01/03/2020 Obesity, Class II, BMI 35-39.9 10/13/2019 1 Last Assessment & Plan: Assessment: BMI 38.74 documented as of this encounter (statuses as of 11/19/2021) [facility] Narrative* Problem Noted Date Resolved Date Obesity 09/03/2020 11/29/2020 Abdominal pain 02/01/2020 04/08/2020 Moderate episode of recurrent major depressive d isorder 11/21/2019 01/03/2020 Obesity, Class II, BMI 35-39.9 10/13/2019 1 Last Assessment & Plan: Assessment: BMI 38.74 documented as of this encounter (statuses as of 12/17/2021) [facility] Narrative* Problem Noted Date Resolved Date Obesity 09/03/2020 11/29/2020 Abdominal pain 02/01/2020 04/08/2020 Moderate episode of recurrent major depressive d isorder 11/21/2019 01/03/2020 Obesity, Class II, BMI 35-39.9 10/13/2019 1 Last Assessment & Plan: Assessment: BMI 38.74 documented as of this encounter (statuses as of 12/25/2021) [facility] Narrative* Problem Noted Date Resolved Date Obesity 09/03/2020 11/29/2020 Abdominal pain 02/01/2020 04/08/2020 Moderate episode of recurrent major depressive d isorder 11/21/2019 01/03/2020 Obesity, Class II, BMI 35-39.9 10/13/2019 1 Last Assessment & Plan: Assessment: BMI 38.74 documented as of this encounter (statuses as of 12/25/2021) [facility] Narrative* Problem Noted Date Resolved Date Obesity 09/03/2020 11/29/2020 Abdominal pain 02/01/2020 04/08/2020 Moderate episode of recurrent major depressive d isorder 11/21/2019 01/03/2020 Obesity, Class II, BMI 35-39.9 10/13/2019 1 Last Assessment & Plan: Assessment: BMI 38.74 documented as of this encounter (statuses as of 12/25/2021) [facility] Narrative* Problem Noted Date Resolved Date Obesity 09/03/2020 11/29/2020 Abdominal pain 02/01/2020 04/08/2020 Moderate episode of recurrent major depressive d isorder 11/21/2019 01/03/2020 Obesity, Class II, BMI 35-39.9 10/13/2019 1 Last Assessment & Plan: Assessment: BMI 38.74 documented as of this encounter (statuses as of 12/26/2021) [facility] Narrative* Problem Noted Date Resolved Date Obesity 09/03/2020 11/29/2020 Abdominal pain 02/01/2020 04/08/2020 Moderate episode of recurrent major depressive d isorder 11/21/2019 01/03/2020 Obesity, Class II, BMI 35-39.9 10/13/2019 1 Last Assessment & Plan: Assessment: BMI 38.74 documented as of this encounter (statuses as of 01/01/2022) [facility] Narrative* Problem Noted Date Resolved Date Obesity 09/03/2020 11/29/2020 Abdominal pain 02/01/2020 04/08/2020 Moderate episode of recurrent major depressive d isorder 11/21/2019 01/03/2020 Obesity, Class II, BMI 35-39.9 10/13/2019 1 Last Assessment & Plan: Assessment: BMI 38.74 documented as of this encounter (statuses as of 01/02/2022) [facility] Narrative* Problem Noted Date Resolved Date Obesity 09/03/2020 11/29/2020 Abdominal pain 02/01/2020 04/08/2020 Moderate episode of recurrent major depressive d isorder 11/21/2019 01/03/2020 Obesity, Class II, BMI 35-39.9 10/13/2019 1 Last Assessment & Plan: Assessment: BMI 38.74 documented as of this encounter (statuses as of 01/06/2022) [facility] Narrative* Problem Noted Date Resolved Date Obesity 09/03/2020 11/29/2020 Abdominal pain 02/01/2020 04/08/2020 Moderate episode of recurrent major depressive d isorder 11/21/2019 01/03/2020 Obesity, Class II, BMI 35-39.9 10/13/2019 1 Last Assessment & Plan: Assessment: BMI 38.74 documented as of this encounter (statuses as of 01/20/2022) [facility] Narrative* Problem Noted Date Resolved Date Obesity 09/03/2020 11/29/2020 Abdominal pain 02/01/2020 04/08/2020 Moderate episode of recurrent major depressive d isorder 11/21/2019 01/03/2020 Obesity, Class II, BMI 35-39.9 10/13/2019 1 Last Assessment & Plan: Assessment: BMI 38.74 documented as of this encounter (statuses as of 01/28/2022) [address]20[address]21 History of Past illness Narrative* Problem Noted Date Resolved Date Obesity 09/03/2020 11/29/2020 Abdominal pain 02/01/2020 04/08/2020 Moderate episode of recurrent major depressive d isorder 11/21/2019 01/03/2020 Obesity, Class II, BMI 35-39.9 10/13/2019 1 Last Assessment & Plan: Assessment: BMI 38.74 documented as of this encounter (statuses as of 02/02/2022) [facility] Narrative* Problem Noted Date Resolved Date Obesity 09/03/2020 11/29/2020 Abdominal pain 02/01/2020 04/08/2020 Moderate episode of recurrent major depressive d isorder 11/21/2019 01/03/2020 Obesity, Class II, BMI 35-39.9 10/13/2019 1 Last Assessment & Plan: Assessment: BMI 38.74 documented as of this encounter (statuses as of 02/02/2022) [address]20[address]21 History of Past illness Narrative* Problem Noted Date Resolved Date Obesity 09/03/2020 11/29/2020 Abdominal pain 02/01/2020 04/08/2020 Moderate episode of recurrent major depressive d isorder 11/21/2019 01/03/2020 Obesity, Class II, BMI 35-39.9 10/13/2019 1 Last Assessment & Plan: Assessment: BMI 38.74 documented as of this encounter (statuses as of 02/03/2022) [facility] Narrative* Problem Noted Date Resolved Date Obesity 09/03/2020 11/29/2020 Abdominal pain 02/01/2020 04/08/2020 Moderate episode of recurrent major depressive d isorder 11/21/2019 01/03/2020 Obesity, Class II, BMI 35-39.9 10/13/2019 1 Last Assessment & Plan: Assessment: BMI 38.74 documented as of this encounter (statuses as of 02/03/2022) [facility] Narrative* Problem Noted Date Resolved Date Obesity 09/03/2020 11/29/2020 Abdominal pain 02/01/2020 04/08/2020 Moderate episode of recurrent major depressive d isorder 11/21/2019 01/03/2020 Obesity, Class II, BMI 35-39.9 10/13/2019 1 Last Assessment & Plan: Assessment: BMI 38.74 documented as of this encounter (statuses as of 02/04/2022) [facility] Narrative* Problem Noted Date Resolved Date Obesity 09/03/2020 11/29/2020 Abdominal pain 02/01/2020 04/08/2020 Moderate episode of recurrent major depressive d isorder 11/21/2019 01/03/2020 Obesity, Class II, BMI 35-39.9 10/13/2019 1 Last Assessment & Plan: Assessment: BMI 38.74 documented as of this encounter (statuses as of 02/06/2022) [facility] Narrative* Problem Noted Date Resolved Date Obesity 09/03/2020 11/29/2020 Abdominal pain 02/01/2020 04/08/2020 Moderate episode of recurrent major depressive d isorder 11/21/2019 01/03/2020 Obesity, Class II, BMI 35-39.9 10/13/2019 1 Last Assessment & Plan: Assessment: BMI 38.74 documented as of this encounter (statuses as of 02/15/2022) [address]20[address]21 History of Past illness Narrative* Problem Noted Date Resolved Date Obesity 09/03/2020 11/29/2020 Abdominal pain 02/01/2020 04/08/2020 Moderate episode of recurrent major depressive d isorder 11/21/2019 01/03/2020 Obesity, Class II, BMI 35-39.9 10/13/2019 1 Last Assessment & Plan: Assessment: BMI 38.74 documented as of this encounter (statuses as of 02/18/2022) [address]20[address]21 History of Past illness Narrative* Problem Noted Date Resolved Date Obesity 09/03/2020 11/29/2020 Abdominal pain 02/01/2020 04/08/2020 Moderate episode of recurrent major depressive d isorder 11/21/2019 01/03/2020 Obesity, Class II, BMI 35-39.9 10/13/2019 1 Last Assessment & Plan: Assessment: BMI 38.74 documented as of this encounter (statuses as of 03/05/2022) [address]20[address]21 History of Past illness Narrative* Problem Noted Date Resolved Date Obesity 09/03/2020 11/29/2020 Abdominal pain 02/01/2020 04/08/2020 Moderate episode of recurrent major depressive d isorder 11/21/2019 01/03/2020 Obesity, Class II, BMI 35-39.9 10/13/2019 1 Last Assessment & Plan: Assessment: BMI 38.74 documented as of this encounter (statuses as of 03/05/2022) [address]20[address]21 History of Past illness Narrative* Problem Noted Date Resolved Date Obesity 09/03/2020 11/29/2020 Abdominal pain 02/01/2020 04/08/2020 Moderate episode of recurrent major depressive d isorder 11/21/2019 01/03/2020 Obesity, Class II, BMI 35-39.9 10/13/2019 1 Last Assessment & Plan: Assessment: BMI 38.74 documented as of this encounter (statuses as of 03/07/2022) [facility] of Past illness Narrative* Problem Noted Date Resolved Date Obesity 09/03/2020 11/29/2020 Abdominal pain 02/01/2020 04/08/2020 Moderate episode of recurrent major depressive d isorder 11/21/2019 01/03/2020 Obesity, Class II, BMI 35-39.9 10/13/2019 1 Last Assessment & Plan: Assessment: BMI 38.74 documented as of this encounter (statuses as of 03/30/2022) [facility] of Past illness Narrative* Problem Noted Date Resolved Date Obesity 09/03/2020 11/29/2020 Abdominal pain 02/01/2020 04/08/2020 Moderate episode of recurrent major depressive d isorder 11/21/2019 01/03/2020 Obesity, Class II, BMI 35-39.9 10/13/2019 1 Last Assessment & Plan: Assessment: BMI 38.74 documented as of this encounter (statuses as of 06/14/2022) [facility] of Past illness Narrative* Problem Noted Date Resolved Date Obesity 09/03/2020 11/29/2020 Abdominal pain 02/01/2020 04/08/2020 Moderate episode of recurrent major depressive d isorder 11/21/2019 01/03/2020 Obesity, Class II, BMI 35-39.9 10/13/2019 1 Last Assessment & Plan: Assessment: BMI 38.74 documented as of this encounter (statuses as of 06/18/2022) [facility] Emergency department Note* Nabila Childs RN [...] 07/02/2020 2:36 PM EDT Emergency Department Report [facility] EMERGENCY DEPARTMENT Service Date:.07/02/20 PCP: [...] Social Gatherings with Friends and Family: Attends [employer] Services: Active Member of Clubs or Organizations: [...] POSITIVE ANTIBODY SCREEN NEGATIVE ARM BAND NUMBER [id number] URINALYSIS, MACRO Result Value Ref Range COLOR, [...] H&H is stable. She was started on [place] and Zofran. Follow up with her RESEARCH CHIEF ENGINEER. Chart was 5 to the RESEARCH CHIEF ENGINEER's office. 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 She is discharged [...] bleeding with large clots [facility] + Plan note Future Appointments Appointment Date:07/23/2022 01:00:00 PM Scheduled Provider: Location:[facility] Appointment Type:CV Echo (FT) Appointment Date:09/07/2022 11:00:00 AM Scheduled Provider:Jamil PRICE MD Location:[facility] Appointment Type:URO New Patient Future Scheduled Tests Radiology* US Renal 06/10/22 * Echo Transthoracic Complete 07/23/22 [facility]05-24-2020 Evaluation + Plan note Future Appointments Appointment Date:07/07/2022 11:00:00 AM Scheduled [facility]: [facility] Echo (FT) Appointment Date:07/08/2022 01:00:00 PM Scheduled Provider:Chetna Jack MD [facility] Type:[facility] New Patient (FT) Future Scheduled Tests Radiology* US Renal 06/10/22 * [facility] Tran[facility]horacic [facility]ments Appointment Date:06/11/2022 03:00:00 PM Scheduled Provider:Chetna Jack MD [facility] Type:Cardiology New Patient (FT) Future Scheduled Tests Radiology* [facility]ments Appointment Date:09/07/2022 11:00:00 AM Scheduled Provider:Jamil PRICE MD Location:[facility] Appointment Type:URO New Patient Future Scheduled Tests Radiology* [facility]ments Appointment Date:01/20/2023 10:00:00 AM Scheduled Provider:Rajni Rouse MD Location:[facility] Appointment Type:URO Office Visit Future Scheduled Tests Radiology* US Renal 06/10/[address] [facility] evaluation + Plan note Future Appointments Appointment Date:10/21/2022 02:20:00 PM Scheduled Provider:Jaquan Paula [facility] Type:FM ER/Hospital Follow Up Appointment Date:11/20/2022 02:40:00 PM Scheduled Provider: [facility] Type:FM Lab Draw Appointment Date:01/20/2023 10:00:00 AM Scheduled Provider:Rajni Rouse MD Location:[facility] Appointment Type:URO Office Visit Future Scheduled Tests Laboratory* T3 Free 10/07/22 * Thyroid Stimulating Hormone 10/07/22 * Free T4 10/07/22 Radiology* [facility] App[facility]ments Appointment Date:11/19/2022 02:30:00 PM Scheduled Provider:Odilon Strange MD [facility] Appointment Type:Cardiology New Patient (FT) Appointment Date:01/20/2023 10:00:00 AM Scheduled Provider:Rajni Rouse MD Location:[facility] Appointment Type:URO Office Visit Future Scheduled Tests Radiology* [facility]al [facility] App[facility]ments Appointment Date:07/13/2023 08:20:00 AM Scheduled Provider:OLGA PRAKASH PA-C Location:[facility] Appointment Type:URO Office Visit Appointment Date:08/04/2023 09:45:00 AM Scheduled Provider:Rajni Rouse MD Location:[facility] Appointment Type:URO Office Visit Future Scheduled Tests Radiology* US Renal 06/10/22 [facility] note* Diagnosis Complex ovarian cyst- Primary Other and unspecified ovarian cyst Uterine leiomyoma, unspecified location [facility] Diagnosis Contusion of right thumb without damage to nail, initial encounter- Primary documented in this encounter [facility] Phone: evaluation note* Diagnosis 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 documented in this encounter [facility] note* Diagnosis Acetabular labrum tear, right, initial encounter- Primary documented in this encounter [facility] note* Diagnosis Tear of right acetabular labrum, subsequent encounter- Primary documented in this encounter [facility] note* Diagnosis Tear of right acetabular labrum, subsequent encounter- Primary Tear of right acetabular labrum, subsequent encounter documented in this encounter [facility] note* Diagnosis Generalized abdominal pain- Primary Abdominal pain, generalized documented in this encounter [facility] [email or web address] Phone: evaluation note* Diagnosis Tear of right acetabular labrum, subsequent encounter- Primary [facility] note[facility] DinnerTime Other Evaluation noteNo InformationNoDoostang Other [facility] note* Diagnosis S/P laparoscopic sleeve gastrectomy- Primary Bariatric surgery status Obesity, Class I, BMI 30-34.9 Obesity, unspecified Dietary counseling and surveillance Dietary surveillance and counseling documented in this encounter [facility] note* Diagnosis Tear of right acetabular labrum, subsequent encounter- Primary documented in this encounter [facility] note* Diagnosis Dental infection- Primary Acute apical periodontitis of pulpal origin documented in this encounter [facility] [email or web address] Phone: evaluation note* Diagnosis Gastroesophageal reflux disease, unspecified whether esophagitis present- Primary Bariatric surgery status Weight disorder Other symptoms concerning nutrition, metabolism, and development Class 1 obesity with serious comorbidity and body mass index (BMI) of 31.0 to 31.9 in adult, unspecified obesity type S/P laparoscopic sleeve gastrectomy Bariatric surgery status Dietary counseling and surveillance Dietary surveillance and counseling documented in this encounter [facility] note* Diagnosis Gastroesophageal reflux disease without esophagitis- Primary Esophageal reflux documented in this encounter [facility] note* Diagnosis Gastroesophageal reflux disease without esophagitis- Primary Esophageal reflux S/P laparoscopic sleeve gastrectomy Bariatric surgery status documented in this encounter [facility] note* Diagnosis Regurgitation of food- Primary Gastroesophageal reflux disease, unspecified whether esophagitis present documented in this encounter [facility] note* Diagnosis Regurgitation of food Gastroesophageal reflux disease, unspecified whether esophagitis present documented in this encounter [facility] note* Diagnosis Gastroesophageal reflux disease without esophagitis Esophageal reflux documented in this encounter [facility] note* Diagnosis Gastroesophageal reflux disease, unspecified whether esophagitis present- Primary documented in this encounter [facility] note* Diagnosis Gastroesophageal reflux disease with esophagitis without hemorrhage- Primary RICHAR (obstructive sleep apnea) Obstructive sleep apnea (adult) (pediatric) Class 1 obesity with serious comorbidity and body mass index (BMI) of 33.0 to 33.9 in adult, unspecified obesity type S/P laparoscopic sleeve gastrectomy Bariatric surgery status Weight disorder Other symptoms concerning nutrition, metabolism, and development documented in this encounter [facility] note* Diagnosis Pre-op evaluation- Primary [...] esophagitis without hemorrhage [facility] Diagnosis S/P bariatric surgery- Primary Bariatric surgery status Postoperative pain Other acute postoperative pain Primary osteoarthritis involving multiple joints [facility] Diagnosis S/P gastric surgery- Primary Other postprocedural status Dietary counseling Dietary surveillance and counseling [facility] Diagnosis Postoperative pain Other acute postoperative pain [facility] Diagnosis Acetabular labrum tear, right, subsequent encounter- Primary [facility] Diagnosis Esophageal dysphagia- Primary Dysphagia, pharyngoesophageal phase S/P gastric bypass Bariatric surgery status Postoperative malabsorption Other and unspecified postsurgical nonabsorption [facility] Diagnosis Esophageal dysphagia Dysphagia, pharyngoesophageal phase S/P gastric bypass Bariatric surgery status S/P bariatric surgery Bariatric surgery status [facility] Diagnosis Polyarthralgia- Primary Pain in joint, multiple sites Malaise and fatigue Other malaise and fatigue Subjective fever S/P laparoscopic sleeve gastrectomy Bariatric surgery status History of syncope Other specified personal history presenting hazards to health History of adrenal insufficiency Personal history of other endocrine, metabolic, and immunity disorders Hypothyroidism, unspecified type [facility] Diagnosis Encounter to discuss test results- Primary Other specified counseling NO SHOW [facility] Diagnosis Constipation, unspecified constipation type- Primary Nausea Nausea alone Rash of face Rash and other nonspecific skin eruption Enlarged lymph nodes Enlargement of lymph nodes [facility] Diagnosis Vernal conjunctivitis of both eyes- Primary [facility] Diagnosis Rash and nonspecific skin eruption- Primary Rash and other nonspecific skin eruption Pain in eye, unspecified laterality Facial edema Edema [facility]* Diagnosis Encounter for surgical aftercare following surgery of digestive system- Primary Aftercare following surgery of the teeth, oral cavity and digestive system, NEC Impaired intestinal absorption Unspecified intestinal malabsorption Esophageal dysphagia Dysphagia, pharyngoesophageal phase Gastroesophageal reflux disease, unspecified whether esophagitis present S/P bariatric surgery Bariatric surgery status documented in this encounter [facility] note* Diagnosis ARSALAN (generalized anxiety disorder)- Primary Generalized anxiety disorder Panic disorder without agoraphobia Moderate recurrent major depression (HCC) Major depressive disorder, recurrent episode, moderate documented in this encounter [facility] note* Diagnosis Postoperative malabsorption- Primary Other and unspecified postsurgical nonabsorption S/P gastric bypass Bariatric surgery status Overweight (BMI 25.0-29.9) Overweight Dietary counseling and surveillance Dietary surveillance and counseling documented in this encounter [facility] note* Diagnosis ARSALAN (generalized anxiety disorder)- Primary Generalized anxiety disorder Panic disorder without agoraphobia Moderate recurrent major depression (HCC) Major depressive disorder, recurrent episode, moderate documented in this encounter [facility] note* Diagnosis Epigastric pain- Primary Abdominal pain, epigastric documented in this encounter [facility] note* Diagnosis Back strain, initial encounter- Primary documented in this encounter [facility] note* Diagnosis Generalized abdominal pain- Primary Abdominal pain, generalized documented in this encounter [facility] note* Diagnosis Nausea- Primary Nausea alone documented in this encounter [facility] note* Diagnosis Gastroesophageal reflux disease, unspecified whether esophagitis present documented in this encounter [facility] note* Diagnosis Generalized anxiety disorder documented in this encounter [facility] note* Diagnosis Nausea- Primary Nausea alone RUQ pain Abdominal pain, right upper quadrant History of cholecystectomy Other acquired absence of organ documented in this encounter [facility] note* Diagnosis Dehydration- Primary RUQ pain Abdominal pain, right upper quadrant documented in this encounter [facility] note* Diagnosis Right knee pain, unspecified chronicity- Primary documented in this encounter [facility] note* Diagnosis Post-operative pain- Primary Other acute postoperative pain 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 documented in this encounter [facility] note* Diagnosis Dehydration- Primary Nausea Nausea alone RUQ pain Abdominal pain, right upper quadrant documented in this encounter [facility] note* Diagnosis RUQ pain- Primary Abdominal pain, right upper quadrant Chronic nausea Nausea alone [facility] Diagnosis Chronic nausea Nausea alone RUQ pain Abdominal pain, right upper quadrant documented in this encounter [facility] note* Diagnosis Abdominal pain, unspecified abdominal location- Primary documented in this encounter [facility] note* Diagnosis Generalized abdominal pain- Primary Abdominal pain, generalized [facility]* Diagnosis Nausea Nausea alone RUQ pain Abdominal pain, right upper quadrant History of cholecystectomy Other acquired absence of organ documented in this encounter [facility] note* Diagnosis Median arcuate ligament syndrome (HCC)- Primary Celiac artery compression syndrome Neuralgia and neuritis Neuralgia, neuritis, and radiculitis, unspecified documented in this encounter [facility] note* Diagnosis Chronic pain syndrome- Primary 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 [facility]* Diagnosis Median arcuate ligament syndrome (HCC)- Primary Celiac artery compression syndrome 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 documented in this encounter [facility] noteNo assessment information availablePaulding [facility] Work Phone: Evaluation note* Diagnosis Median arcuate ligament syndrome (CMS/HCC)- Primary Celiac artery compression syndrome PONV (postoperative nausea and vomiting) Nausea with vomiting RICHAR (obstructive sleep apnea) Obstructive sleep apnea (adult) (pediatric) Asthma Unspecified asthma Anxiety Anxiety state, unspecified Osteoarthritis Osteoarthrosis, unspecified whether generalized or localized, unspecified site Depression Depressive disorder, not elsewhere classified documented in this encounter [facility] Work Phone: Evaluation note* Diagnosis Abdominal pain- Primary Abdominal pain, unspecified site Abdominal pain Abdominal pain, unspecified site Nausea and vomiting, unspecified vomiting type History of gastric bypass Median arcuate ligament syndrome (CMS/HCC) Celiac artery compression syndrome documented in this encounter [facility] Work Phone: Evaluation note* Diagnosis Median arcuate ligament syndrome (CMS/HCC)- Primary Celiac artery compression syndrome documented in this encounter [facility] Work Phone: Evaluation note* Diagnosis Bariatric surgery status- Primary Dietary zinc deficiency Mineral deficiency, not elsewhere classified Vitamin D deficiency Unspecified vitamin D deficiency documented in this encounter [facility] note* Diagnosis Gastroesophageal reflux disease, unspecified whether esophagitis present- Primary Constipation, unspecified constipation type documented in this encounter [facility] note* Diagnosis Nausea and vomiting, unspecified vomiting type- Primary documented in this encounter [facility] note* Diagnosis Neuralgia and neuritis- Primary Neuralgia, neuritis, and radiculitis, unspecified Gastroesophageal reflux disease without esophagitis Esophageal reflux 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 S/P gastric bypass Bariatric surgery status documented in this encounter [facility] note* Diagnosis ARSALAN (generalized anxiety disorder)- Primary Generalized anxiety disorder Panic disorder without agoraphobia Moderate recurrent major depression (HCC) Major depressive disorder, recurrent episode, moderate documented in this encounter [facility] note* Diagnosis Sudden onset of severe abdominal pain- Primary Abdominal pain, unspecified site Nausea and vomiting, unspecified vomiting type PEG (percutaneous endoscopic gastrostomy) status (HCC) Gastrostomy status documented in this encounter [facility] note* Diagnosis Median arcuate ligament syndrome (CMS-HCC)- Primary Celiac artery compression syndrome documented in this encounter [facility] Work Phone: Evaluation note* Diagnosis Epigastric [...] Nausea with vomiting documented in this encounter [facility] Work Phone: Evaluation note* Diagnosis Urinary frequency- Primary Urgency of urination documented in this encounter [facility] note* Diagnosis Screening for genitourinary condition Screening for other and unspecified genitourinary condition documented in this encounter [facility] note* Diagnosis ARSALAN (generalized anxiety disorder)- Primary Generalized anxiety disorder Panic disorder without agoraphobia Moderate recurrent major depression (HCC) Major depressive disorder, recurrent episode, moderate [facility]* Diagnosis Onset Date Resolution Status Intractable vomiting with nausea acute Small bowel obstruction [facility] Work Phone: Evaluation note* Diagnosis Onset Date Resolution Status Intractable vomiting with nausea acute Small bowel obstruction acut e Status post gastric bypass for obesity acute [facility] Work Phone: Evaluation note* Diagnosis Chronic nausea- Primary Nausea alone History of laparoscopic partial gastrectomy Personal history of surgery to other organs History of sphincterotomy of sphincter of Oddi Other postprocedural status 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 documented in this encounter [facility] note* Diagnosis Chronic abdominal pain- Primary Abdominal pain, unspecified site Gastroesophageal reflux disease without esophagitis Esophageal reflux Neuralgia and neuritis Neuralgia, neuritis, and radiculitis, unspecified 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 S/P gastric bypass Bariatric surgery status [facility]* Diagnosis Gastroesophageal reflux disease without esophagitis Esophageal reflux Neuralgia and neuritis Neuralgia, neuritis, and radiculitis, unspecified 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 Chronic abdominal pain Abdominal pain, unspecified site S/P gastric bypass Bariatric surgery status [facility]* Diagnosis Gastroesophageal reflux disease without esophagitis Esophageal reflux Neuralgia and neuritis Neuralgia, neuritis, and radiculitis, unspecified 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 Chronic abdominal pain Abdominal pain, unspecified site S/P gastric bypass Bariatric surgery status documented [facility]* Diagnosis Neuralgia and neuritis- Primary Neuralgia, neuritis, and radiculitis, unspecified 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 documented in this encounter [facility] note* Diagnosis Gastroesophageal reflux disease without esophagitis Esophageal reflux Neuralgia and neuritis Neuralgia, neuritis, and radiculitis, unspecified 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 Chronic abdominal pain Abdominal pain, unspecified site S/P gastric bypass Bariatric surgery status [facility]* Diagnosis Gastroesophageal reflux disease without esophagitis Esophageal reflux Neuralgia and neuritis Neuralgia, neuritis, and radiculitis, unspecified 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 Chronic abdominal pain Abdominal pain, unspecified site S/P gastric bypass Bariatric surgery status [facility]* Diagnosis Gastroesophageal reflux disease, unspecified whether esophagitis present documented in this encounter [facility] note* Diagnosis Gastroesophageal reflux disease, unspecified whether esophagitis present documented in this encounter [facility] note* Diagnosis Gastroesophageal reflux disease, unspecified whether esophagitis present- Primary documented in this encounter [facility] note* Diagnosis Chronic abdominal pain- Primary Abdominal pain, unspecified site History of gastric bypass Bariatric surgery status Pre-op testing Preoperative examination, unspecified Chronic abdominal pain Abdominal pain, unspecified site History of gastric bypass Bariatric surgery status Pre-op testing Preoperative examination, unspecified documented in this encounter [facility] note* Diagnosis Multiple gastric ulcers- Primary LUQ pain Abdominal pain, left upper quadrant Gastroesophageal reflux disease with esophagitis without hemorrhage Constipation, unspecified constipation type Chronic abdominal pain Abdominal pain, unspecified site History of gastric bypass Bariatric surgery status Pre-op testing Preoperative examination, unspecified documented in this encounter [facility] note* Diagnosis History of gastric bypass- Primary Bariatric surgery status Left upper quadrant abdominal pain Chronic abdominal pain Abdominal pain, unspecified site History of gastric bypass Bariatric surgery status Pre-op testing Preoperative examination, unspecified documented in this encounter [facility] note* Diagnosis Gastroesophageal reflux disease [...] Preoperative examination, unspecified documented in this encounter [facility] note* Diagnosis ARSALAN (generalized anxiety disorder)- Primary Generalized anxiety disorder Panic disorder without agoraphobia Moderate recurrent major depression (HCC) Major depressive disorder, recurrent episode, moderate Situational stress Other psychological or physical stress, not elsewhere classified Chronic abdominal pain Abdominal pain, unspecified site History of gastric bypass Bariatric surgery status Pre-op testing Preoperative examination, unspecified documented in this encounter [facility] note* Diagnosis Pre-op evaluation- Primary [...] essential HTN Assessment: [facility] Pre-op evaluation- Primary Preoperative examination, unspecified Class 3 severe obesity due to excess calories with serious comorbidity and body mass index (BMI) of 40.0 to 44.9 in adult ([facility]) Essential hypertension Unspecified essential hypertension Gastroesophageal reflux [...] status Bariatric surgery status Jejunostomy tube present ([facility]) Status of other artificial opening of gastrointestinal tract Acquired hypothyroidism Unspecified hypothyroidism Anemia, unspecified type Anxiety and depression Dysthymic disorder Chronic abdominal pain Abdominal pain, unspecified site Current use of steroid medication Feeding difficulties- Primary Feeding difficulties and mismanagement On total parenteral nutrition (TPN) Other specified conditions influencing health status [facility] Pre-op evaluation- Primary Preoperative examination, unspecified Class 3 severe obesity due to excess calories with serious comorbidity and body mass index (BMI) of 40.0 to 44.9 in adult ([facility]) Essential hypertension Unspecified essential hypertension Gastroesophageal reflux [...] status Bariatric surgery status Jejunostomy tube present ([facility]) Status of other artificial opening of gastrointestinal tract Acquired hypothyroidism Unspecified hypothyroidism Anemia, unspecified type Anxiety and depression Dysthymic disorder Chronic abdominal pain Abdominal pain, unspecified site Current use of steroid medication Abnormal defecation- Primary Other symptoms involving digestive system S/P hysterectomy Acquired absence of both cervix and uterus Endometriosis Endometriosis, site unspecified Constipation, unspecified constipation type Hypoglycemia Hypoglycemia, unspecified Adrenal insufficiency ([facility]) Glucocorticoid deficiency On total parenteral nutrition (TPN) Other specified conditions influencing health status On total parenteral nutrition (TPN) Other specified conditions influencing health status [facility] Diagnosis Pre-op evaluation- Primary Preoperative examination, unspecified Class 3 severe obesity due to excess calories with serious comorbidity and body mass index (BMI) of 40.0 to 44.9 in adult ([facility]) Essential hypertension Unspecified essential hypertension Gastroesophageal reflux [...] following other surgery [facility] Diagnosis Pre-op evaluation- Primary Preoperative [...] anemia type- Primary [facility] Diagnosis Pre-op evaluation- Primary Preoperative examination, unspecified Class 3 severe obesity due to excess calories with serious comorbidity and body mass index (BMI) of 40.0 to 44.9 in adult ([facility]) Essential hypertension Unspecified essential hypertension Gastroesophageal reflux [...] Multiple gastric ulcers [facility] Diagnosis Pre-op evaluation- Primary Preoperative [...] status Bariatric surgery status Jejunostomy tube present ([facility]) Status of other artificial opening of gastrointestinal tract Acquired hypothyroidism Unspecified hypothyroidism Anemia, unspecified type Anxiety and depression Dysthymic disorder Chronic abdominal pain Abdominal pain, unspecified site Current use of steroid medication Impaired intestinal absorption- Primary Unspecified intestinal malabsorption [facility] Diagnosis Pre-op evaluation- Primary Preoperative examination, unspecified Class 3 severe obesity due to excess calories with serious comorbidity and body mass index (BMI) of 40.0 to 44.9 in adult ([facility]) Essential hypertension Unspecified essential hypertension Gastroesophageal reflux [...] status Bariatric surgery status Jejunostomy tube present ([facility]) Status of other artificial opening of gastrointestinal tract Acquired hypothyroidism Unspecified hypothyroidism Anemia, unspecified type Anxiety and depression Dysthymic disorder Chronic abdominal pain Abdominal pain, unspecified site Current use of steroid medication Nutcracker phenomenon of renal vein- Primary [facility]* Diagnosis Pre-op evaluation- Primary Preoperative [...] Other specified acquired hypothyroidism Anemia, unspecified type Pain Generalized pain RUQ abdominal pain Abdominal pain, right upper quadrant Nausea and vomiting, unspecified vomiting type History of cholecystectomy Other acquired absence of organ History of gastric bypass Bariatric surgery status Pre-op evaluation- Primary Preoperative examination, unspecified Idiopathic hypotension Hypotension, unspecified PONV (postoperative nausea and vomiting) Nausea with vomiting RICHAR on CPAP Obstructive sleep apnea (adult) (pediatric) Mild intermittent asthma without complication Unspecified asthma Gastroesophageal reflux disease, unspecified whether esophagitis present On total parenteral nutrition (TPN) Other specified conditions influencing health status Bariatric surgery status Jejunostomy tube present ([facility]) Status of other artificial opening of gastrointestinal tract Acquired hypothyroidism Unspecified hypothyroidism Anemia, unspecified type Anxiety and depression Dysthymic disorder Chronic abdominal pain Abdominal pain, unspecified site Current use of steroid medication [facility] Pre-op evaluation- Primary Preoperative examination, unspecified Class 3 severe obesity due to excess calories with serious comorbidity and body mass index (BMI) of 40.0 to 44.9 in adult ([facility]) Essential hypertension Unspecified essential hypertension Gastroesophageal reflux [...] unspecified type Morbid obesity (HCC) Morbid obesity Acetabular labrum tear, right, initial encounter Pre-op evaluation- Primary Preoperative examination, unspecified Tear [...] of gastric bypass Bariatric surgery status Pre-op evaluation- Primary Preoperative examination, unspecified Idiopathic hypotension Hypotension, unspecified PONV (postoperative nausea and vomiting) Nausea with vomiting RICHAR on CPAP Obstructive sleep apnea (adult) (pediatric) Mild intermittent asthma without complication Unspecified asthma Gastroesophageal reflux disease, unspecified whether esophagitis present On total parenteral nutrition (TPN) Other specified conditions influencing health status Bariatric surgery status Jejunostomy tube present ([facility]) Status of other artificial opening of gastrointestinal tract Acquired hypothyroidism Unspecified hypothyroidism Anemia, unspecified type Anxiety and depression Dysthymic disorder Chronic abdominal pain Abdominal pain, unspecified site Current use of steroid medication [facility] Diagnosis Pre-op evaluation- Primary Preoperative examination, unspecified Class 3 severe obesity due to excess calories with serious comorbidity and body mass index (BMI) of 40.0 to 44.9 in adult ([facility]) Essential hypertension Unspecified essential hypertension Gastroesophageal reflux [...] unspecified chronicity Anemia, unspecified type Morbid obesity ([facility]) Morbid obesity Pre-op evaluation- Primary Preoperative examination, [...] status Bariatric surgery status Jejunostomy tube present ([facility]) Status of other artificial opening of gastrointestinal tract Acquired hypothyroidism Unspecified hypothyroidism Anemia, unspecified type Anxiety and depression Dysthymic disorder Chronic abdominal pain Abdominal pain, unspecified site Current use of steroid medication Jejunostomy present ([facility])- Primary [facility] Diagnosis Pre-op evaluation- Primary Preoperative examination, unspecified Class 3 severe obesity due to excess calories with serious comorbidity and body mass index (BMI) of 40.0 to 44.9 in adult ([facility]) Essential hypertension Unspecified essential hypertension Gastroesophageal reflux [...] unspecified chronicity Anemia, unspecified type Morbid obesity ([facility]) Morbid obesity Pre-op evaluation- Primary Preoperative examination, [...] status Bariatric surgery status Jejunostomy tube present ([facility]) Status of other artificial opening of gastrointestinal tract Acquired hypothyroidism Unspecified hypothyroidism Anemia, unspecified type Anxiety and depression Dysthymic disorder Chronic abdominal pain Abdominal pain, unspecified site Current use of steroid medication ARSALAN (generalized anxiety disorder)- Primary Generalized anxiety disorder Panic disorder without agoraphobia Mild recurrent major depression ([facility]) Major depressive disorder, recurrent episode, mild Situational stress Other psychological or physical stress, not elsewhere classified [facility] Diagnosis Pre-op evaluation- Primary Preoperative examination, unspecified Class 3 severe obesity due to excess calories with serious comorbidity and body mass index (BMI) of 40.0 to 44.9 in adult ([facility]) Essential hypertension Unspecified essential hypertension Gastroesophageal reflux [...] Impaired intestinal absorption- Primary Unspecified intestinal malabsorption Iron deficiency anemia, unspecified iron deficiency anemia type [facility] N[facility]ative - ReportedNort DinnerTime Other History general Narrative - Reported* Type [...] hystectomy 2020 Hospitalization History childbirths Hospitalization History [facility] 2019 Hospitalization History [facility] axel-gastritis 1 03/2020 [facility] Other History general Narrative - Reported* Type [...] repair 03/20/2021 Hospitalization History childbirths Hospitalization History [facility] 2019 Hospitalization History salvador axel-gastritis 1 03/2020 [facility] Other History of Present illness Narrative* Sherry Magaña MD - 04/20/2023 3:45 PM EST And I had a phone conversation patient and I had a phone conversation as she was at home in the state of [place] and I was [facility] vascular drexel. She is recovering from a laparotomy for [...] has seen her general surgeon at [facility] and will be following up with her gastro enterologist at the clinic. I will see her back by virtual visit in 2 months documented in this [facility] Work Phone: Hospital course Narrative No data available for this section [facility] Discharge instructions* Attachments The following attachments cannot be sent through Care Everywhere. * Uterine Fibroids (Croatian) * Ovarian Cyst: Hemorrhagic (Croatian) documented in this [facility] Discharge instructions* Attachments The following attachments cannot be sent through Care Everywhere. * Finger: Bruises (Croatian) * Subungual Hematoma (Croatian) documented in this [facility] Work Phone: spital Discharge instructions* Attachments The following attachments cannot be sent through Care Everywhere. * Abdominal Pain (Croatian) [facility] Discharge instructions No data available for this section [facility] Discharge instructions* Attachments The following attachments cannot be sent through Care Everywhere. * Abdominal Pain (Croatian) documented in this [facility] Discharge instructions Additional Instructions Please take medications as prescribed. Return to ER or follow-up with PCP or GI specialist if symptoms worsen. 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.[facility] Work Phone: Hospital Discharge instructions Additional [...] fever vomiting despite medication or any other [facility] Work Phone: Hospital Discharge instructions Additional Instructions [facility] to manage care: - Full code - Routine vital signs - NPO - Maintain central line, routine care per protocol - Decompress the J-tube by placing it to gravity drain when she does develop nauseaPaulding [facility] Work Phone: Hospital Discharge instructions Additional Instructions [facility] with your [facility] surgeon Return to the ED if you develop worsening symptoms or [facility] Work Phone: Hospital Discharge instructions Additional Instructions If your symptoms return/worsen or you develop any further concerns or symptoms please see your doctor or return to the emergency department immediately.[facility] Work Phone: Progress note No data available for this section [facility] for referral (narrative)* Consultation (Routine) - New Request Specialty Diagnoses / Procedures Referred By Contac t Referred To Contact [facility] Diagnoses Articular cartilage disorder of right knee Lucie Mora MD [address] [place] [address] Referral ID Status Reason Start Date Expiration Date V isits Requested Visits Authorized [id number] New Request 06/02/2021 06/27/2022 1 1 [facility] for referral (narrative)* Diagnostic Procedure Only (Routine) - Closed Specialty Diagnoses / Procedures Referred By Contac t Referred To Contact XR IMAGING Diagnoses Acetabular labrum tear, right, initial encounter Procedures XR HIP GENERAL 3V PELV/AP/LAT RIGHT RADEX HIP UNILATERAL WITH PELVIS 2-3 VIEWS Kuldip Yousif MD [address] [place] [address] Xr Imaging Referral ID Status Reason Start Date Expiration Date V isits Requested Visits Authorized [id number] Closed Auto-Generate d Referral 06/18/2021 07/18/2022 1 1 [facility] for referral (narrative)* Outpatient Procedure (Routine) - Pending Review Specialty Diagnoses / Procedures [facility] Referred To Contact [facility] Diagnoses Gastroesophageal reflux disease without esophagitis Procedures EGD - THERAPEUTIC, EUS, OR TUBE INTERVENTIONS ESOPHAGOGASTRODUODENOSC [place] [phone] [place] [address] Referral ID Status Reason Start Date Expiration Date Visits Requested Visits Authorized [id number] Pending Review Auto-Generat ed Referral 11/17/2021 11/17/2022 1 1 [facility] for referral (narrative)* Outpatient Procedure (Routine) - Authorized Specialty Diagnoses / Procedures [facility] Referred To Contact [facility] Diagnoses Gastroesophageal reflux disease without esophagitis S/P laparoscopic sleeve gastrectomy Procedures PH IMPEDANCE INSERT OFF MEDS ESOPHGL FUNCJ G-ESOP RFLX IMPD ELTRD Breanna Middleton, OPERATIONAL TRAINER [address] [place] [address] [address] Referral ID Status Reason Start Date Expiration Date Visits Requested Visits Authorized [id number] Authorized Auto-Generat ed Referral 11/19/2021 11/18/2022 1 1 [facility] for referral (narrative)* Outpatient Procedure (Routine) - Pending Review Specialty Diagnoses / Procedures Referred By Contac t Referred To Contact [facility] [place] Diagnoses Regurgitation of food Gastroesophageal reflux disease, unspecified whether esophagitis present Procedures PH HUERTA INSERT OFF MEDS GASTROESOPHAG REFLX TEST W/TELEMTRY PH Breanna Hernandez APRN.CNP [address] [place] [address] [address] [phone] Referral ID Status Reason Start Date Expiration Date Visits Requested Visits Authorized [id number] Pending Review Auto-Generat ed Referral 2 12/17/2022 1 1 [facility] for referral (narrative)* Outpatient Procedure (Routine) - Closed Specialty Diagnoses / Procedures Referred By [facility] Referred To Contact [facility] [place] Diagnoses Gastroesophageal reflux disease without esophagitis Procedures EGD - THERAPEUTIC, EUS, OR TUBE INTERVENTIONS ESOPHAGOGASTRODUODENOSC OPY [place] [address] [phone] [address] [address] Referral ID Status Reason Start Date Expiration Date V isits Requested Visits Authorized [id number] Closed Auto-Generate d Referral 11/17/2021 11/17/2022 1 1 [facility] for referral (narrative)* Outpatient Procedure (Routine) - Pending Review Specialty Diagnoses / Procedures Referred By [facility] Referred To Contact [facility] [place] Diagnoses Pre-op evaluation Procedures ECG COMPLETE ECG ROUTINE ECG W/LEAST 12 LDS W/I&R Ioana Hogan PA-C [address] [place] [address] [address] Referral ID Status Reason Start Date Expiration Date Visits Requested Visits Authorized [id number] Pending Review Auto-Generat ed Referral 2 01/28/2023 1 1 [facility] for referral (narrative)* Outpatient Procedure (Routine) - Authorized Specialty Diagnoses / Procedures Referred By Contac t Referred To Contact [facility] Diagnoses Esophageal dysphagia S/P gastric bypass Procedures EGD - THERAPEUTIC, EUS, OR TUBE INTERVENTIONS EGD BALLOON DILATION ESOPHAGUS <30 MM DIAM Breanna Stern APRN.OPERATIONAL TRAINER [address] [place] [address] [address] Referral ID Status Reason Start Date Expiration Date Visits Requested Visits Authorized [id number] Authorized Auto-Generat ed Referral 03/05/2022 03/05/2023 1 1 [facility] for referral (narrative)* Outpatient Procedure (Routine) - Closed Specialty Diagnoses / Procedures [facility] Referred To Contact [facility] [place] Diagnoses Esophageal dysphagia S/P gastric bypass Procedures EGD - THERAPEUTIC, EUS, OR TUBE INTERVENTIONS EGD BALLOON DILATION ESOPHAGUS <30 MM DIAM Breanna Stern APRN.OPERATIONAL TRAINER [address] [place] [address] [address] Referral ID Status Reason Start Date Expiration Date V isits Requested Visits Authorized [id number] Closed Auto-Generate d Referral 03/05/2022 03/05/2023 1 1 [facility] for referral (narrative)* Outpatient Procedure (Routine) - Pending Review Specialty Diagnoses / Procedures Referred By Contac t Referred To Contact [facility] [place] Diagnoses Constipation, unspecified constipation type Procedures ADULT [place] ANORECTAL MANOMETRY ANORECTAL MANOMETRY Kasie Avalos MD [address] [place] [address] [address] Referral ID Status Reason Start Date Expiration Date Visits Requested Visits Authorized [id number] Pending Review Auto-Generat ed Referral 07/22/2022 07/23/2023 1 1 [facility] for referral (narrative)* Diagnostic Procedure Only (Routine) - Pending Review Specialty Diagnoses / Procedures Referred By Andriyac t Referred To Contact XR IMAGING Diagnoses S/P bariatric surgery Gastroesophageal reflux disease, unspecified whether esophagitis present Procedures XR UPPER GI ROUTINE DOUBLE CONTRAST/AIR RADIOLOGIC EXAM UPR GI TRC DOUBLE CONTRAST STUDY Breanna Stern, SLIM.BETH [address] [place] [address] Xr Imaging Referral ID Status Reason Start Date Expiration Date Visits Requested Visits Authorized [id number] Pending Review Auto-Generat ed Referral 09/18/2022 10/18/2023 1 1 [facility] for referral (narrative)* Outpatient Procedure (Routine) - Authorized Specialty Diagnoses / Procedures Referred By Jazmine hooks Referred To Contact [facility] Diagnoses Epigastric pain Procedures EGD DIAGNOSTIC ESOPHAGOGASTRODUODENOSC OPY [place] [address] [address] [phone] [facility] [address] [place] [address] Referral ID Status Reason Start Date Expiration Date Visits Requested Visits Authorized [id number] Authorized Auto-Generat ed Referral 10/20/2022 10/21/2023 1 1 [facility] for referral (narrative)* Diagnostic Procedure Only (Routine) - Closed Specialty Diagnoses / Procedures Referred By Jazmine t Referred To Contact US IMAGING Diagnoses Nausea RUQ pain History of cholecystectomy Procedures US ABD RIGHT UPPER QUADRANT US ABDOMINAL [place] W/[place] [address] [place] [address] Us Imaging [id number] Referral ID Status Reason Start Date Expiration Date V isits Requested Visits Authorized [id number] Closed Auto-Generate d Referral 11/04/2022 12/04/2023 1 1 * Diagnostic Procedure Only (Routine) - Authorized Specialty Diagnoses / Procedures Referred By Contact Referred To Contact MOLECULAR & FUNCTIONAL IMAGING Diagnoses Nausea RUQ pain History of cholecystectomy Procedures NM HEPATOBILIARY W EF AND/OR RX HEPATOBIL SYST IMAG INC GB W/[place] [address] [place] [address] Molecular & Functional Imaging [address] [place] [address] Referral ID Status Reason Start Date Expiration Date Visits Requested Visits Authorized [id number] Authorized Auto-Generat ed Referral 11/04/2022 12/04/2023 1 1 [facility] for referral (narrative)* Diagnostic Procedure Only (Routine) - Pending Review Specialty Diagnoses / Procedures Referred By Contac t Referred To Contact XR IMAGING Diagnoses Right knee pain, unspecified chronicity Procedures XR KNEE GENERAL 4V AP BOTH/PA BOTH/LAT/MERC RIGHT RADIOLOGIC EXAM KNEE COMPLETE 4/MORE VIEWS Agustin Salmeron PA-C [address] [place] [address] Xr Imaging [id number] Referral ID Status Reason Start Date Expiration Date Visits Requested Visits Authorized [id number] Pending Review Auto-Generat ed Referral 11/04/2022 12/04/2023 1 1 [facility] for referral (narrative)* Outpatient Procedure (Urgent) - Authorized Specialty Diagnoses / Procedures Referred By Contac t Referred [facility] Diagnoses Chronic nausea RUQ pain Procedures US MESENTERIC ARTERY CMPLT VAS LAB DUP-SCAN ARTL TIARA ABDL/PEL/SCROT&/[place] [address] [place] [address] [facility] [address] [place] [address] Referral ID Status Reason Start Date Expiration Date Visits Requested Visits Authorized [id number] Authorized Auto-Generat ed Referral 11/23/2022 11/23/2023 1 1 [facility] for referral (narrative)* Outpatient Procedure (Urgent) - Closed Specialty Diagnoses / Procedures [facility] Ref[facility] To Contact [facility] Diagnoses Chronic nausea RUQ pain Procedures US MESENTERIC ARTERY CMPLT VAS LAB DUP-SCAN ARTL TIARA ABDL/PEL/SCROT&/[place] [address] [place] [address] [address] Referral ID Status Reason Start Date Expiration Date V isits Requested Visits Authorized [id number] Closed Auto-Generate d Referral 11/23/2022 11/23/2023 1 1 T [facility] for referral (narrative)* Diagnostic Procedure Only (Routine) - Closed Specialty Diagnoses / Procedures [facility] Referred To Contact US IMAGING Diagnoses Nausea RUQ pain History of cholecystectomy Procedures US ABD RIGHT UPPER QUADRANT US ABDOMINAL REAL [place] W/[place] [address] [place] [address] Us Imaging [id number] Referral ID Status Reason Start Date Expiration Date V isits Requested Visits Authorized [id number] Closed Auto-Generate d Referral 11/04/2022 12/04/2023 1 1 [facility] for referral (narrative)* Outpatient Procedure (Routine) - Authorized Specialty Diagnoses / Procedures [facility] Ref[facility] To [facility] Diagnoses Gastroesophageal reflux disease, unspecified whether esophagitis present Procedures PH HUERTA INSERT ON MEDS GASTROESOPHAG REFLX TEST W/TELEMTRY PH ELTRD Kasie Avalos MD [address] [place] [address] [address] Referral ID Status Reason Start Date Expiration Date Visits Requested Visits Authorized [id number] Authorized Auto-Generat ed Referral 04/28/2023 04/27/2024 1 1 * Outpatient Procedure (Routine) - Authorized Specialty Diagnoses / Procedures Referred By Contac t Referred To Contact [facility] Diagnoses Gastroesophageal reflux disease, unspecified whether esophagitis present Procedures EGD - THERAPEUTIC, EUS, OR TUBE INTERVENTIONS ESOPHAGOGASTRODUODENOSC OPY [place] [address] [place] [address] [address] [address] Referral ID Status Reason Start Date Expiration Date Visits Requested Visits Authorized [id number] Authorized Auto-Generat ed Referral 04/28/2023 04/27/2024 1 1 [facility] for referral (narrative)* Outpatient Procedure (Routine) - Closed Specialty Diagnoses / Procedures Referred By Contac t Referred To Contact [facility] Diagnoses Gastroesophageal reflux disease, unspecified whether esophagitis present Procedures EGD - THERAPEUTIC, EUS, OR TUBE INTERVENTIONS ESOPHAGOGASTRODUODENOSC OPY TRANSORAL DIAGNOSTIC Kasie Avalos MD [address] [place] [address] [address] Referral ID Status Reason Start Date Expiration Date V isits Requested Visits Authorized [id number] Closed Auto-Generate d Referral 04/28/2023 04/27/2024 1 1 [facility] for referral (narrative)* Outpatient Procedure (Routine) - Authorized Specialty Diagnoses / Procedures Referred By Jazmine t Referred To Contact [facility] Diagnoses Multiple gastric ulcers Procedures EGD DIAGNOSTIC ESOPHAGOGASTRODUODENOSC OPY TRANSORAL DIAGNOSTIC Kasie Avalos MD [address] [phone] [facility] [address] [place] [address] Referral ID Status Reason Start Date Expiration Date Visits Requested Visits Authorized [id number] Authorized Auto-Generat ed Referral 09/08/2023 09/07/2024 1 1 [facility] for referral (narrative)* Outpatient Procedure (Routine) - New Request Specialty Diagnoses / Procedures Referred By Jazmine t Referred To Contact [facility] Diagnoses Nutcracker phenomenon of renal vein Procedures US RENAL VENOUS JOHANNY VAS LAB DUP-SCAN ARTL TIARA ABDL/PEL/SCROT&/RPR ORGN COM Braxton Prado MD [address] [place] [address] [address] [phone] Referral ID Status Reason Start Date Expiration Date Visits Requested Visits Authorized [id number] New Request Auto-Generat ed Referral 11/04/2023 11/03/2024 1 1 [facility] for referral (narrative)* Diagnostic Procedure Only (Routine) - Closed Specialty Diagnoses / Procedures Referred By Jazmine t Referred To Contact XR IMAGING Diagnoses Pain Procedures XR HIP GENERAL 3V PELV/AP/LAT RIGHT RADEX HIP UNILATERAL WITH PELVIS 2-3 VIEWS Kuldip Yousif MD [address] [place] [address] Xr Imaging [id number] Referral ID Status Reason Start Date Expiration Date V isits Requested Visits Authorized [id number] Closed Auto-Generate d Referral 02/05/2022 03/07/2023 1 1 [facility] for referral (narrative)* Diagnostic Procedure Only (Routine) - Closed Specialty Diagnoses / Procedures Referred By Jazmine hooks Referred To Contact XR IMAGING Diagnoses Acetabular labrum tear, right, initial encounter Procedures XR HIP GENERAL 3V PELV/AP/LAT RIGHT RADEX HIP UNILATERAL WITH PELVIS 2-3 VIEWS Kuldip Yousif MD [address] [place] [address] Xr Imaging [address] [address] Referral ID Status Reason Start Date Expiration Date V isits Requested Visits Authorized [id number] Closed Auto-Generate d Referral 06/18/2021 07/18/2022 1 1 [facility] for visit NarrativeGeneral Surgery Referral UpdateNort DinnerTime Other [facility] N[facility]* Outpatient Procedure (Routine) - Closed Specialty Diagnoses / Procedures [facility] Referred To Contact [facility] [place] Diagnoses Gastroesophageal reflux disease without esophagitis Procedures EGD - THERAPEUTIC, EUS, OR TUBE INTERVENTIONS ESOPHAGOGASTRODUODENOSC OPY [place] [address] [phone] [facility] Disease [place] [phone] Referral ID Status Reason Start Date Expiration Date V isits Requested Visits Authorized [id number] Closed Auto-Generate d Referral 11/17/2021 11/17/2022 1 1 [facility] for visit Narrative* Outpatient Procedure (Routine) - Closed Specialty Diagnoses / Procedures [facility]erred To Contact [facility] [place] Diagnoses Esophageal dysphagia S/P gastric bypass Procedures EGD - THERAPEUTIC, EUS, OR TUBE INTERVENTIONS EGD BALLOON DILATION ESOPHAGUS <30 MM DIAM Breanna Stern, PAPER SORTER AND COUNTER.OPERATIONAL TRAINER [address] [place] [address] [facility] Disease [place] [address] [place] [address] Referral ID Status Reason Start Date Expiration Date V isits Requested Visits Authorized [id number] Closed Auto-Generate d Referral 03/05/2022 03/05/2023 1 1 [facility] for visit Narrative* Outpatient Procedure (Urgent) - Closed Specialty Diagnoses / Procedures [facility] Referred To Contact [facility] [place] Diagnoses Chronic nausea RUQ pain Procedures US MESENTERIC ARTERY CMPLT VAS LAB DUP-SCAN ARTL TIARA ABDL/PEL/SCROT&/[place] [address] [place] [address] [address] Referral ID Status Reason Start Date Expiration Date V isits Requested Visits Authorized [id number] Closed Auto-Generate d Referral 11/23/2022 11/23/2023 1 1 [facility] for visit Narrative* Diagnostic Procedure Only (Routine) - Closed Specialty Diagnoses / Procedures [facility] Referred To Contact US IMAGING Diagnoses Nausea RUQ pain History of cholecystectomy Procedures US ABD RIGHT UPPER QUADRANT US ABDOMINAL REAL TIME W/[place] [address] [place] [address] [place] [address] Referral ID Status Reason Start Date Expiration Date V isits Requested Visits Authorized [id number] Closed Auto-Generate d Referral 11/04/2022 12/04/2023 1 1 [facility] for visit Narrative* Outpatient Procedure (Routine) - Closed Specialty Diagnoses / Procedures [facility]erred To Contact [facility] [place] Diagnoses Gastroesophageal reflux disease, unspecified whether esophagitis present Procedures EGD - THERAPEUTIC, EUS, OR TUBE INTERVENTIONS ESOPHAGOGASTRODUODENOSC OPY TRANSORAL DIAGNOSTIC Kasie Avalos MD [address] [place] [address] [address] Referral ID Status Reason Start Date Expiration Date V isits Requested Visits Authorized [id number] Closed Auto-Generate d Referral 04/28/2023 04/27/2024 1 1 [facility] for visit Narrative* Outpatient Procedure (Routine) - Closed Specialty Diagnoses / Procedures [facility] To [facility] Diagnoses Multiple gastric ulcers Procedures EGD DIAGNOSTIC ESOPHAGOGASTRODUODENOSC OPY TRANSORAL DIAGNOSTIC Kasie Avalos MD [address] [place] [address] [facility] [place] [address] [place] [address] Referral ID Status Reason Start Date Expiration Date V isits Requested Visits Authorized [id number] Closed Auto-Generate d Referral 09/08/2023 09/07/2024 1 1 [facility] Diagnostic Procedure Only (Routine) - Closed Specialty Diagnoses / Procedures Referred By Contac t Referred To Contact XR IMAGING Diagnoses Acetabular labrum tear, right, initial encounter Procedures XR HIP GENERAL 3V PELV/AP/LAT RIGHT RADEX HIP UNILATERAL WITH PELVIS 2-3 VIEWS Kuldip Yousif MD [address] [place] [address] [place] [address] Referral ID Status Reason Start Date Expiration Date V isits Requested Visits Authorized [id number] Closed Auto-Generate d Referral 06/18/2021 07/18/2022 1 1 [facility] Summary Purpose Family History No Family [...] FoundDocuments on File Type Date Recorded 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 Advance Directive(s) 03/13/2021 9:49 AM Date Activated Date Inactivated Comments 12/06/2022 9:37 PM 12/09/2022 8:48 PM Question Answer Comments Full Code Order Discussed With: Patient Date Activated Date Inactivated Comments 11/22/2022 8:03 PM 11/23/2022 5:11 PM Question Answer Comments Full Code Order Discussed With: Patient Documents on File Type Date Recorded 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 Advance Directive(s) 03/13/2021 9:49 AM [...] Documents on File Type Date Recorded 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 Advance Directive(s) 07/04/2021 4:13 PM [...] Documents on File Type Date Recorded 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 Advance Directive(s) 03/13/2021 9:49 AM [...] with Follow Up in 24 Hours ([facility]) (Croatian) documented in this encounter Assessments Diagnosis Lower abdominal pain- Primary Abdominal pain, other specified site Reason for Referral Status Reason Specialty Diagnoses / Procedures Referre d By Contact Referred To Contact Closed Procedures US PELVIC WITH TRANSVAGINAL WITH DOPPLER Juanito Laird PA-C [address] [place] [address] Specialty Diagnoses / Procedures Referred By Contact Referred To Contact [facility] Diagnoses Tear of right acetabular labrum, subsequent encounter Procedures CONSULT TO PHYSICAL THERAPY PHYSICAL THERAPY EVALUATION HIGH COMPLEX 45 MINS Justine Shabazz PA-C [address] [place] [address] [facility] [place] [address] [place] [address] Referral ID Status Reason Start Date Expiration Date Visits Requested Visits Authorized [id number] Pending Review Auto-Generat ed Referral 06/23/2021 06/23/2022 1 1 Reason 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 - Please request Dr. Keven Gomez [phone] Diagnosis 1 Hernia (K46.9) Referral Organization [facility] Family Priscila Guo Referring Provider First Name Shanna Referring Provider Last Name Slade Referring Provider Specialty Nurse Ramona castañeda Referred Organization [facility] Referred Address [address] [facility],[place],[address] Referred Provider Specialty General Surg ammon Referral Priority Routine Specialty Diagnoses / Procedures Referred By Jazmine hooks Referred To Contact Diagnoses S/P laparoscopic sleeve gastrectomy Procedures CONSULT TO BARIATRIC NUTRITION OFFICE/OUTPATIENT [facility] 60-74 MINUTES Sabina Joy APRN.OPERATIONAL TRAINER [address] [place] [address] Referral ID Status Reason Start Date Expiration Date Visits Requested Visits Authorized [id number] Pending Review PCP Requested Referral 10/09/2021 10/09/2022 [...] BARIATRIC ESOPHAGOGASTRODUODENOSCO PY TRANSORAL DIAGNOSTIC Sabina Joy APRN.OPERATIONAL TRAINER [address] [place] [address] [facility] [place] [address] [place] [address] Referral ID Status Reason Start Date Expiration Date Visits Requested Visits Authorized [id number] Pending Review Auto-Generat ed Referral 10/09/2021 10/09/2022 1 1 Specialty Diagnoses / Procedures Referred By Contac t Referred To Contact Diagnoses RICHAR (obstructive sleep apnea) Procedures CONSULT TO SLEEP MEDICINE - ADULT OFFICE/OUTPATIENT [facility] 60-74 MINUTES Sabina Joy APRN.OPERATIONAL TRAINER [address] [place] [phone] Referral ID Status Reason Start Date Expiration Date Visits Requested Visits Authorized [id number] Authorized PCP Requested Referral 2 01/02/2023 1 1 Specialty Diagnoses / Procedures Referred By Contac t Referred To Contact [facility] Diagnoses S/P bariatric surgery Primary osteoarthritis involving multiple joints Procedures CONSULT TO PHYSICAL THERAPY PHYSICAL THERAPY EVALUATION HIGH COMPLEX 45 MINS Breanna Stern APRN.OPERATIONAL TRAINER [address] [place] [phone] [facility] [place] [address] Referral ID Status Reason Start Date Expiration Date Visits Requested Visits Authorized [id number] Pending Review Auto-Generat ed Referral 2 02/03/2023 1 1 Specialty Diagnoses / Procedures Referred By Contac t Referred To Contact Endocrinology Diagnoses History of adrenal insufficiency Hypothyroidism, unspecified type Procedures CONSULT TO ENDOCRINOLOGY OFFICE/OUTPATIENT [facility] 60-74 MINUTES Aliyah Washburn PA-C [address] [place] [address] Referral ID Status Reason Start Date Expiration Date Visits Requested Visits Authorized [id number] Authorized PCP Requested Referral 06/12/2022 06/12/2023 1 1 Specialty Diagnoses / Procedures Referred By Contac t Referred To Contact Allergy Diagnoses Rash and nonspecific skin eruption Pain in eye, unspecified laterality Facial edema Procedures CONSULT TO ALLERGY/IMMUNOLOGY OFFICE/OUTPATIENT [facility] 60-74 MINUTES Samara Evans MD [address] [place] [phone] Referral ID Status Reason Start Date Expiration Date Visits Requested Visits Authorized [id number] Authorized PCP Requested Referral 07/28/2022 07/28/2023 1 1 Specialty Diagnoses / Procedures Referred By Contac t Referred To Contact CT IMAGING Diagnoses Generalized abdominal pain Procedures CTA ABD/PEL W IVCON CT ANGIO ABD&PLVIS CNTRST MTRL W/WO CNTRST Agustin Piper MD [address] [place] [address] Ct Imaging [place] [address] Referral ID Status Reason Start Date Expiration Date Visits Requested Visits Authorized [id number] Authorized Auto-Generat ed Referral 3 01/17/2023 1 1 Specialty Diagnoses / Procedures Referred By Contac t Referred To Contact Home Health Services Diagnoses Median arcuate ligament syndrome (CMS/HCC) Alicia Toro, PAPER S[facility] [address] [address] [place] [address] Referral ID Status Reason Start Date Expiration Date Visits Requested Visits Authorized [id number] Authorized Specialty Services Required 03/08/2023 03/07/2024 999 999 Specialty Diagnoses / Procedures Referred By Contac t Referred To Contact Home Health Services Diagnoses Other [place] [address] [address] [facility] [address] [place] [address] Referral ID Status Reason Start Date Expiration Date Visits Requested Visits Authorized [id number] Authorized Specialty Services Required 07/01/2023 06/30/2024 999 999 Specialty Diagnoses / Procedures Referred By Contac t Referred To Contact Francisco J Steve MD [address] [place] [address] Referral ID Status Reason Start Date Expiration Date V isits Requested Visits Authorized [id number] Pending Review 1 1 Specialty Diagnoses / Procedures Referred By Contac t Referred To Contact TRANSPLANT Diagnoses Chronic nausea History of laparoscopic partial gastrectomy History of sphincterotomy of sphincter of Oddi Median arcuate ligament syndrome (HCC) Procedures CONSULT TO [facility]PL[facility] LAPAROTOMY CELIOTOMY W/[place] [address] [place] [id number] [facility] [address] [place] [address] Referral ID Status Reason Start Date Expiration Date Visits Requested Visits Authorized [id number] Canceled Financial Clearance Required - O[employer] Payor 07/19/2023 07/18/2024 99 99 Specialty Diagnoses / Procedures Referred By Contac t Referred To Contact Diagnoses Chronic abdominal pain History of gastric bypass Pre-op testing Procedures REFER TO [facility] / [facility] - PREOPERATIVE OPTIMIZATION OFFICE/OUTPATIENT [facility] [place] [address] [place] [phone] Referral ID Status Reason Start Date Expiration Date Visits Requested Visits Authorized [id number] Authorized PCP Requested Referral 09/09/2023 09/08/2024 1 1 Specialty Diagnoses / Procedures Referred By Contac t Referred To Contact Endocrinology Diagnoses Hypoglycemia Adrenal insufficiency (HCC) Procedures CONSULT TO ENDOCRINOLOGY OFFICE/OUTPATIENT [facility] 60 MINUTES Georgina Carrillo MD [facility] [address] [place] [address] Referral ID Status Reason Start Date Expiration Date Visits Requested Visits Authorized [id number] Authorized PCP Requested Referral 10/13/2023 10/12/2024 1 1 Specialty Diagnoses / Procedures Referred By Contac t Referred To Contact XR IMAGING Diagnoses Abnormal defecation S/P hysterectomy Endometriosis Procedures XR DEFECOGRAPHY RADIOLOGIC EXAM COLON SINGLE CONTRAST STUDY Georgina Carrillo MD [facility] [address] [place] [phone] Xr Imaging [place] [address] Referral ID Status Reason Start Date Expiration Date Visits Requested Visits Authorized [id number] New Request Auto-Generat ed Referral 10/13/2023 11/11/2024 1 1 Specialty Diagnoses / Procedures Referred By Contac t Referred To Contact [facility] Diagnoses Abnormal defecation Constipation, unspecified constipation type Procedures ADULT [place] ANORECTAL MANOMETRY ANORECTAL MANOMETRY Georgina Carrillo MD [facility] [address] [place] [phone] [facility] [place] [address] [place] [address] [place] [address] Referral ID Status Reason Start Date Expiration Date Visits Requested Visits Authorized [id number] New Request Auto-Generat ed Referral 10/13/2023 10/12/2024 1 1 Specialty Diagnoses / Procedures Referred By Jazmine t Referred To Contact Nutrition Diagnoses Jejunostomy present (HCC) Procedures CONSULT TO ENTERAL NUTRITION (FEEDING TUBE PLACEMENT/MANAGEMENT) OFFICE/OUTPATIENT NEW [facility]DM [address] [place] [address] [place] [address] Referral ID Status Reason Start Date Expiration Date Visits Requested Visits Authorized [id number] Authorized PCP Requested Referral 11/15/2023 11/14/2024 1 1 Medications Administered Section Inactive Administered Medications - up to 3 most recent administrations Medication Order MAR Action Action Date Dose Rate Site benzocaine 20% (TOPEX) TOPICAL, X (OR/PROCEDURE) PRN, Starting on Wed12/25/21 at 0939, Until Wed12/25/21 at 0939, Intraprocedure Given 12/25/2021 9:39 AM EST 1 Dellroy Meperidine (PF) injection (DEMEROL) X (OR/PROCEDURE) PRN, [...] section and content) DATE CREATED AUTHOR 09/11/2017 [facility] DATE CREATED AUTHOR AUTHOR'S ORGANIZ ATION 06/03/2021 [facility] DATE CREATED AUTHOR AUTHOR'S ORGANIZ ATION 06/24/2022 [facility] DATE CREATED AUTHOR AUTHOR'S ORGANIZ ATION 11/01/2022 [facility] DATE CREATED AUTHOR AUTHOR'S ORGANIZ ATION 11/07/2022 [facility] DATE CREATED AUTHOR AUTHOR'S ORGANIZ ATION 11/22/2022 [facility] DATE CREATED AUTHOR AUTHOR'S ORGANIZ ATION 11/29/2022 [facility] DATE CREATED AUTHOR AUTHOR'S ORGANIZ ATION 12/16/2022 [facility] DATE CREATED AUTHOR AUTHOR'S ORGANIZ ATION 02/12/2023 [facility] DATE CREATED AUTHOR AUTHOR'S ORGANIZ ATION 02/18/2023 [facility] DATE CREATED AUTHOR AUTHOR'S ORGANIZ ATION 06/27/2023 [facility] DATE CREATED AUTHOR AUTHOR'S ORGANIZ ATION 09/07/2023 [facility] DATE CREATED AUTHOR AUTHOR'S ORGANIZ ATION 10/12/2023 [facility] DATE CREATED AUTHOR AUTHOR'S ORGANIZ ATION 10/13/2023 [facility] DATE CREATED AUTHOR AUTHOR'S ORGANIZ ATION 11/03/2023 [facility] DATE CREATED AUTHOR AUTHOR'S ORGANIZ ATION 11/06/2023 [facility] DATE CREATED AUTHOR AUTHOR'S ORGANIZ ATION 11/08/2023 [facility] DATE CREATED AUTHOR AUTHOR'S ORGANIZ ATION 11/16/2023 [facility] DATE CREATED AUTHOR AUTHOR'S ORGANIZ ATION 11/17/2023 [facility] Reason for Visit (unrecogniz ed section and content) Reason Comments Fatigue Anxiety Stress Specialty Diagnoses / Procedures Referred By Contac t Referred To Contact Psychology / ADULT PSYCHOLOGY Diagnoses follow up Procedures VIDEO PSYC/PSYL EST Pablo Lebron, PSmii [address] [place] [address] Pablo Lebron, [place] [address] Referral ID Status Reason Start Date Expiration Date V isits Requested Visits Authorized [id number] Pending Review 06/09/2023 09/07/2023 1 1 Reason Comments Abdominal Pain RUQ abdominal pain t hat is spreading across her back and into the left side. pt states that she does not have a gallbladder or appendix and has been treated by [facility] recently for bowel adhesions and it is just getting worse. 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 Disease [place] [address] [place] [address] Referral ID Status Reason Start Date Expiration Date V isits Requested Visits Authorized [id number] Closed Auto-Generate d Referral 12/25/2021 12/17/2022 1 [...] VIDEO PSYC/PSYL EST Self Pablo Lebron, ROSALBA [address] [place] [address] Referral ID Status Reason Start Date Expiration Date V isits Requested Visits Authorized [id number] Outside PCP 09/21/2022 12/20/2022 1 1 Reason Comments Anxiety Stress Specialty Diagnoses / Procedures Referred By Contac t Referred To Contact Psychology / ADULT PSYCHOLOGY Diagnoses Follow up Procedures VIDEO PSYC/PSYL EST Pablo Lebron, PSYD [address] [place] [address] Pablo Lebron, PSYD [address] [place] [phone] Referral ID Status Reason Start Date Expiration Date V isits Requested Visits Authorized [id number] Pending Review 10/05/2022 01/03/2023 1 1 Reason [...] CT scans showing possible kidney stones near [facility], here today because hands turned brown Reason [...] 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] Procedures [place] UNLISTED PX ABDOMEN MUSCULOSKELETAL SYSTEM Release Median Arcuate Ligament [place] [address] [place] [address] [place] [address] [place] [address] Referral ID Status Reason Start Date Expiration Date Visits Re quested Visits Authorized [id number] 1 1 Reason Comments Abdominal Pain Specialty Diagnoses / Procedures Referred By Contac t Referred To Contact Diagnoses Abdominal pain History of gastric bypass Nausea and vomiting, unspecified vomiting type nausea and vomiting [place] [address] [place] [address] [address] [address] [place] [address] Referral ID Status Reason Start Date Expiration Date Visits Re quested Visits Authorized [id number] 1 1 Reason Comments Weight Loss Surgery Reason Comments Established Patient Reason Comments Appointment Cancel EGD Reason Comments Patient Question Reason Comments Vomiting Reason Comments Patient Education Manager Card - Other Reason Onset Date Comments Refill [...] By Jazmine hooks Referred To Contact Diagnoses Epigastric pain Median arcuate ligament syndrome (CMS-HCC) Nausea and vomiting, unspecified vomiting type Procedures [place] [address] [facility] [address] [place] [address] [facility] [address] [place] [address] Referral ID Status Reason Start Date Expiration Date Visits Re quested Visits Authorized [id number] 1 1 Reason Comments Received Outside Medical Records Reason Comments Education Of Patient/family Reminder Call 08/26/23 appt confirm ed Reason Comments Establish Care pain Reason Comments Patient Question Manager Card - Other Reason Onset Date Comments Refill Request 08/23/2023 Reason Onset Date Comments Procedure 08/26/2023 HUERTA 48 Hour pH Capsule Placement Specialty Diagnoses / Procedures Referred By Jazmine hooks Referred To Contact [facility] Diagnoses Gastroesophageal reflux disease, unspecified whether esophagitis present Procedures PH HUERTA INSERT ON MEDS GASTROESOPHAG REFLX TEST W/TELEMTRY PH Kasie Sherman MD [address] [place] [address] [facility] [place] [address] [place] [address] Referral ID Status Reason Start Date Expiration Date V isits Requested Visits Authorized [id number] Closed Auto-Generate d Referral 04/28/2023 04/27/2024 1 [...] VIDEO PSYC/PSYL EST Self Pablo Lebron, PSYD [address] [place] [address] Referral ID Status Reason Start Date Expiration Date V isits Requested Visits Authorized [id number] Outside PCP 09/28/2023 02/15/2024 99 99 Reason Comments Schedule Surgery Manager Card - Other Reason Comments Consult Reason Comments Nutrition Assessment Reason Comments New Patient Reason Comments Post Op Follow Up S/p diagnostic lap Reason Onset Date Comments Refill Request 11/01/2023 Reason Comments Blood Management Reason Comments Radio Gen RMP Specialty Diagnoses / Procedures Referred By Contac t Referred To Contact XR IMAGING Diagnoses Pain Procedures XR HIP GENERAL 3V PELV/AP/LAT RIGHT RADEX HIP UNILATERAL WITH PELVIS 2-3 VIEWS Kuldip Yousif MD [address] [place] [address] [place] [address] Referral ID Status Reason Start Date Expiration Date V isits Requested Visits Authorized [id number] Closed Auto-Generate d Referral 02/05/2022 03/07/2023 1 1 Specialty Diagnoses / Procedures Referred By Contac t Referred To Contact Diagnoses Impaired intestinal absorption Iron deficiency anemia, unspecified iron deficiency anemia type Procedures INJ FERRIC CARBOXYMALTOS 1MG Georgina Carrillo MD [facility] [address] [place] [address] [facility] [address] [place] [address] Referral ID Status Reason Start Date Expiration Date V isits Requested Visits Authorized [id number] Authorized 11/03/2023 02/15/2024 1 99 Altagracia Arnett RN - 01/30/2020 5:34 [...] cart, no distress noted. Emergency Department Report [facility] EMERGENCY [facility] Service Date:.01/30/20 PCP: Shanna June Chief Complaint: Chief Complaint Patient presents with Abdominal Pain RUQ abdominal pain that is spreading across her back and into the left side. pt states that she does not have a gallbladder or appendix and has been treated by [facility] recently for bowel adhesions and [...] file Gets together: Not on file Attends anglican service: Not on file Active member of [...] with a prescription of Zofran and some [place] to help with some of the discomfort. [...] RN)2121 (Given - Provider: Danny Middleton RN) 820 [...] RN)2121 (Given - Provider: Danny Middleton RN) 820 (Given - Provider: Nadia Zee RN)2000 (Given - Provider: Eileen Austin RN) 0902 (Given - Provider: Nadia Zee RN)2100 (Due) [...] Nuñez, RN)2122 (Given - Provider: Danny Middleton, DEE) 0900 (Not Given - Provider: Nadia Zee RN - Reason: Other - Comment: fx loose stool) topiramate (Topamax) tablet 50 mg 50 mg, oral, 2 times daily, First dose on Wed03/05/23 at 2100 0840 (Given - Provider: Cloe Nuñez, DEE)2122 (Given - Provider: Danny Middleton RN) 0821 (Given - Provider: Nadia Zee RN)2001 (Given - Provider: Eileen Austin, DEE) 0907 (Given - Provider: Nadia Zee, DEE)2100 (Due) Continuous Medication Order 03/08/2023 03/09/2023 03/10/2023 sodium chloride 0.45 % with KCl 20 mEq/L infusion 75 mL/hr, intravenous, Continuous, Starting on Wed03/07/23 at 1645 0230 (Rate/Dose Verify - Provider: Olga Paz RN)0852 (New Bag - Provider: Cole Nuñez RN) 0145 (New Bag - Provider: Danny Middleton, DEE)1954 (New Bag - Provider: Eileen Austin, DEE) [...] Nuñez, DEE) 0356 (Given - Provider: Danny Middleton RN)1012 [...] Nadia Zee RN) 0901 (Given - Provider: Ndaia Zee RN) hydrOXYzine HCL (Atarax) tablet 25 [...] RN)2000 (Given - Provider: Eileen Austin RN) 0543 (See Alternative - Provider: Eileen Austin [...] patient preference? Yes 1119 (Given - Provider: oCle Nuñez RN)1850 (Given - Provider: Cole Nuñez [...] line, Starting on 03/06/23 at 1240, Give [place] if patient is unable to take orally [...] line, Starting on 03/06/23 at 1240
Give [place] if patient is unable to take orally [...] Campos RN) 0657 (Given - Provider: Nathalie Campso RN) 0538 (Given - Provider: Nathalie Campos [...] 2010 (Given - Provider: Nathalie Campos RN) 2050 [...] on Wed03/17/23 at 1900, For 3 days 08 (Given - Provider: Andie Lugo RN) 0839 [...] Provider: Nathalie Campos RN - Reason: Patient/family refused)2348 (Canceled Entry - Provider: Nathalie Campos RN) [...] maximum rate is 5 mg per minute. 040 (Given - Provider: Nathalie Campos RN) diazePAM (Valium) injection 5 mg (COMPLETED) 5 mg, intravenous, Administer over 3 Minutes, Every 4 hours PRN, anxiety, muscle spasms, sedation, Starting on Wed03/18/23 at 1934, For 2 doses, Administer over 1-3 minutes, maximum rate is 5 mg per minute. 2008 (Given - Provider: Nathalie Campos RN) 06 (Given - Provider: Nathalie Campos RN) diazePAM [...] Campos RN) 0323 (Given - Provider: Nathalie Cmapos RN)0839 (Given - Provider: Christina Lazo RN)1321 [...] Dow RN)2239 (Given - Provider: Andrew Potts, RN) 0826 (Given - Provider: Mariah Herrera, RN)1501 (Given - Provider: Mariah Herrera RN)2136 (Given - Provider: Grecia Schaffer, DEE) 1006 (Given - Provider: Tory Mcmullen, RN)1500 (Due)2100 (Due) calcium gluconate in NS [...] Potts, DEE) 0826 (Given - Provider: Mariah Herrera, DEE)2137 (Given - Provider: Grecia Schaffer, DEE) 1007 [...] Potts, DEE) 0827 (Given - Provider: Mariah Herrera, RN)2139 (Given - Provider: Grecia Schaffer, DEE) 1012 (Given - Provider: Tory Mcmullen RN)2099 (Due) levothyroxine (Synthroid, Levoxyl) tablet 100 mcg 100 mcg, j-tube, Daily before breakfast, First dose on Wed06/30/23 at 0600 0615 (Given - Provider: Mayda Balbuena LPN) 0552 (Given - Provider: Andrew Potts RN) 0605 (Given - Provider: Grecia Schaffer RN) liothyronine (Cytomel) tablet 5 mcg 5 mcg, oral, Daily (30), First dose on Wed06/30/23 at 1730 0615 (Given - Provider: Mayda Balbuena LPN) 0552 (Given - Provider: Andrew Potts RN) 0605 (Given - Provider: rGecia Schaffer RN) methocarbamol (Robaxin) tablet 750 mg 750 mg, oral, 3 times daily, First dose on Wed06/30/23 at 2100 0915 (Given - Provider: Beatriz Dow RN)1530 (Given - Provider: Beatriz Dow RN)2239 (Given - Provider: Andrew Potts, DEE) 0826 (Given - Provider: Mariah Herrera, DEE)1501 (Given - Provider: Mariah Herrera, RN)2136 (Given - Provider: Grecia Schaffer, DEE) 1007 (Given - Provider: Tory Mcmullen RN)1500 [...] 2239 (Given - Provider: Andrew Potts RN) 213 [...] Mariah Herrera RN) 1006 (Given - Provider: oTry Mcmullen RN) polyethylene glycol (Glycolax, Miralax) powder 17 g [...] Potts, DEE) 0827 (Given - Provider: Mariah Herrera, DEE)2136 (Given - Provider: Grecia Schaffer, DEE) 1007 [...] Grecia Schaffer RN)1007 (Given - Provider: Tory Mcmullen RN) morphine injection 4 mg (CANCELED) 4 mg, intravenous, Every 4 hours PRN, pain severe (7-10), first line, Starting on Wed07/01/23 at 2138 2300 (Given - Provider: Aliyah Galvan RN) 0532 (Given - Provider: Aliyah Galvan RN)0942 (Given - Provider: Mariah Herrera, RN)1345 [...] Schaffer RN) 0605 (Given - Provider: Grecia Schaffer, DEE)1145 [...] preference? Yes 1532 (Given - Provider: Beatriz Dow, DEE) 0352 (Given - Provider: Andrew Potts, DEE) Linked Groups Order Group 1: acetaminophen (Tylenol) [...] Attending Provider Active Start: July 17, 2023 Head Shipper Relationship Specialty Start Date End Date Shanna June STOCK GRADER [address] [place] [address] PCP - General Nurse Practitioner - Family 01/30/20 Head Shipper Relationship Specialty Start Date End Date Shanna June CNP [address] [place] [address] PCP - General Family Practice 01/31/20 Antelmo Davey [address] [place] [address] (Fax) 09/25/19 [place] [address] [place] [address] Consulting General Surgery 09/25/19 Shanna June CNP [address] [place] [address] Referring Family Practice 10/19/19 Head Shipper Relationship Specialty Start Date End Date Shanna June CNP [address] [place] [address] PCP - General Family Practice 01/31/20 Antelmo Davey MD [address] [place] [address] (Fax) 09/25/19 [place] [address] [place] [address] Consulting General Surgery 09/25/19 Shanna June CNP [address] [place] [address] Referring Family Practice 10/19/19 Head Shipper Relationship Specialty Start Date End Date Shanna June CNP [address] [place] [address] PCP - General Family Practice 01/31/20 Antelmo Davey MD [address] [facility] [place] [address] 09/25/19 [place] [address] [facility] [place] [address] Consulting General Surgery 09/25/19 Shanna June CNP [address] [place] [address] Referring Family Practice 10/19/19 Head Shipper Relationship Specialty Start Date End Date Shanna June CNP [address] [place] [address] PCP - General Family Practice 01/31/20 Antelmo Davey MD [address] [facility] [place] [address] (Fax) 09/25/19 [place] [address] [place] [address] Consulting General Surgery 09/25/19 Shanna June CNP [address] [place] [address] Referring Family Practice 10/19/19 Head Shipper Relationship Specialty Start Date End Date Wally Foley [address] [place] [address] PCP - General Specialist 07/27/21 Head Shipper Relationship Specialty Start Date End Date Shanna June CNP [address] [place] [address] PCP - General Family Practice 01/31/20 Antelmo Davey MD [address] [facility] [place] [address] (Fax) 09/25/19 [place] [address] [place] [address] Consulting General Surgery 09/25/19 Shanna June CNP [address] [place] [address] Referring Family Practice 10/19/19 Head Shipper Relationship Specialty Start Date End Date Slade BETH Otero [address] [place] [address] PCP - General Family Practice 01/31/20 Antelmo Davey MD [address] [place] [address] (Fax) 09/25/19 [place] [address] [facility] [place] [address] Consulting General Surgery 09/25/19 Shanna June CNP [address] [place] [address] Referring Family Practice 10/19/19 Head Shipper Relationship Specialty Start Date End Date Shanna June CNP [address] [place] [address] PCP - General Family Practice 01/31/20 Antelmo Davey MD [address] [place] [address] (Fax) 09/25/19 [place] [address] [place] [address] Consulting General Surgery 09/25/19 Shanna June CNP [address] [place] [address] Referring Family Practice 10/19/19 Head Shipper Relationship Specialty Start Date End Date Shanna June CNP [address] [place] [address] PCP - General Family Practice 01/31/20 Antelmo Davey MD [address] [facility] [place] [address] (Fax) 09/25/19 [place] [address] [facility] [place] [place] [address] Consulting General Surgery 09/25/19 Shanna June CNP [address] [place] [address] Referring Family Practice 10/19/19 Head Shipper Relationship Specialty Start Date End Date Shanna June CNP [address] [place] [address] PCP - General Family Practice 01/31/20 Antelmo Davey MD [address] [facility] [place] [address] (Fax) 09/25/19 [place] [address] [facility] [place] [address] Consulting General Surgery 09/25/19 Shanna June CNP [address] [place] [address] Referring Family Practice 10/19/19 Head Shipper Relationship Specialty Start Date End Date Shanna June CNP [address] [place] [address] PCP - General Family Practice 01/31/20 Antelmo Davey MD [address] [place] [address] (Fax) 09/25/19 [place] [address] [place] [address] Consulting General Surgery 09/25/19 Shanna June CNP [address] [place] [address] Referring Family Practice 10/19/19 Head Shipper Relationship Specialty Start Date End Date Wally Foley [address] [facility] [place] [address] PCP - General Specialist 07/27/21 Head Shipper Relationship Specialty Start Date End Date Shanna June CNP [address] [place] [address] PCP - General Family Practice 01/31/20 Antelmo Davey MD [address] [place] [address] (Fax) 09/25/19 [place] [address] [facility] [place] [address] Consulting General Surgery 09/25/19 Shanna June, OPERATIONAL TRAINER [address] [place] [address] Referring Family Practice 10/19/19 Head Shipper Relationship Specialty Start Date End Date Shanna June CNP [address] [place] [address] PCP - General Family Practice 01/31/20 Antelmo Davey MD [address] [place] [address] (Fax) 09/25/19 [place] [address] [facility] [place] [address] Consulting General Surgery 09/25/19 Shanna June CNP [address] [place] [address] Referring Family Practice 10/19/19 Head Shipper Relationship Specialty Start Date End Date Shanna June CNP [address] [place] [address] PCP - General Family Practice 01/31/20 Antelmo Davey MD [address] [place] [address] (Fax) 09/25/19 [place] [address] [place] [address] Consulting General Surgery 09/25/19 SladeShanna, OPERATIONAL TRAINER [address] [place] [address] Referring Family Practice 10/19/19 Head Shipper Relationship Specialty Start Date End Date Shanna June CNP [address] [place] [address] PCP - General Family Practice 01/31/20 Antelmo Davey MD [address] [place] [address] (Fax) 09/25/19 [place] [address] [place] [address] Consulting General Surgery 09/25/19 SladeShanna, OPERATIONAL TRAINER [address] [place] [address] Referring Family Practice 10/19/19 Head Shipper Relationship Specialty Start Date End Date Shanna June CNP [address] [place] [address] PCP - General Family Medicine 01/31/20 Antelmo Davey MD [address] [place] [address] (Fax) 09/25/19 [place] [address] [place] [address] Consulting General Surgery 09/25/19 Slade ShannaBETH tomlin [address] [place] [address] Referring Family Medicine 10/19/19 Head Shipper Relationship Specialty Start Date End Date Slade BETH Otero [address] [place] [address] PCP - General Family Medicine 01/31/20 Antelmo Davey MD [address] [place] [address] (Fax) 09/25/19 [place] [address] [place] [address] Consulting General Surgery 09/25/19 Shanna June CNP [address] [place] [address] Referring Family Medicine 10/19/19 Head Shipper Relationship Specialty Start Date End Date Slade BETH Otero [address] [place] [address] PCP - General Family Medicine 01/31/20 Antelmo Davey MD [address] [place] [address] 09/25/19 [place] [address] [place] [address] Consulting General Surgery 09/25/19 Shanna June CNP [address] [place] [address] Referring Family Medicine 10/19/19 Head Shipper Relationship Specialty Start Date End Date Slade ShannaBETH tomlin [address] [place] [address] PCP - General Family Medicine 01/31/20 Antelmo Davey MD [address] [facility] [place] [address] (Fax) 09/25/19 [place] [address] [place] [address] Consulting General Surgery 09/25/19 Shanna June CNP [address] [place] [address] Referring Family Medicine 10/19/19 Head Shipper Relationship Specialty Start Date End Date Shanna June CNP [address] [place] [address] PCP - General Family Medicine 01/31/20 Antelmo Davey MD [address] [facility] [place] [address] (Fax) 09/25/19 [place] [address] [place] [address] Consulting General Surgery 09/25/19 Shanna June, OPERATIONAL TRAINER [address] [place] [address] Referring Family Medicine 10/19/19 Head Shipper Relationship Specialty Start Date End Date Shanna June CNP [address] [place] [address] PCP - General Family Medicine 01/31/20 Antelmo Davey MD [address] [facility] [place] [address] (Fax) 09/25/19 [place] [address] [place] [address] Consulting General Surgery 09/25/19 SladeShanna slater, OPERATIONAL TRAINER [address] [place] [address] Referring Family Medicine 10/19/19 Head Shipper Relationship Specialty Start Date End Date Shanna June, OPERATIONAL TRAINER [address] [place] [address] PCP - General Family Medicine 01/31/20 Antelmo Davey MD [address] [facility] [place] [address] (Fax) 09/25/19 [place] [address] [place] [address] Consulting General Surgery 09/25/19 SladeShanna slater, OPERATIONAL TRAINER [address] [place] [address] Referring Family Medicine 10/19/19 Head Shipper Relationship Specialty Start Date End Date SladeDenyie, OPERATIONAL TRAINER [address] [place] [address] PCP - General Family Medicine 01/31/20 Antelmo Davey MD [address] [facility] [place] [address] 09/25/19 [place] [address] [place] [address] Consulting General Surgery 09/25/19 Shanna June, OPERATIONAL TRAINER [address] [place] [address] Referring Family Medicine 10/19/19 Head Shipper Relationship Specialty Start Date End Date Shanna Jnue CNP [address] [place] [address] PCP - General Family Medicine 01/31/20 Antelmo Davey MD [address] [place] [address] (Fax) 09/25/19 [place] [address] [place] [address] Consulting General Surgery 09/25/19 Slade Shanna, OPERATIONAL TRAINER [address] [place] [address] Referring Family Medicine 10/19/19 Head Shipper Relationship Specialty Start Date End Date Shanna JuneBETH [address] [place] [address] PCP - General Family Medicine 01/31/20 Antelmo Davey MD [address] [place] [address] (Fax) 09/25/19 [place] [address] [place] [address] Consulting General Surgery 09/25/19 SladeShanna, OPERATIONAL TRAINER [address] [place] [address] Referring Family Medicine 10/19/19 Head Shipper Relationship Specialty Start Date End Date SladeDenverShanna, OPERATIONAL TRAINER [address] [place] [address] PCP - General Family Medicine 01/31/20 Antelmo Davey MD [address] [place] [address] (Fax) 09/25/19 [place] [address] [place] [address] Consulting General Surgery 09/25/19 Shanna June, OPERATIONAL TRAINER [address] [place] [address] Referring Family Medicine 10/19/19 Head Shipper Relationship Specialty Start Date End Date Shanna June, OPERATIONAL TRAINER [address] [place] [address] PCP - General Family Medicine 01/31/20 Antelmo Davey MD [address] [facility] [place] [address] 09/25/19 [place] [address] [place] [address] Consulting General Surgery 09/25/19 Shanna June, OPERATIONAL TRAINER [address] [place] [address] Referring Family Medicine 10/19/19 Head Shipper Relationship Specialty Start Date End Date Wally Foley MD [address] [facility] [place] [address] PCP - General Family Medicine 01/19/22 Antelmo Davey MD [address] [place] [address] (Fax) 09/25/19 [place] [address] [place] [address] Consulting General Surgery 09/25/19 Shanna June, OPERATIONAL TRAINER [address] [place] [address] Referring Family Medicine 10/19/19 Head Shipper Relationship Specialty Start Date End Date Wally Foley MD [address] [place] [address] PCP - General Family Medicine 01/19/22 Antelmo Davey MD [address] [place] [address] (Fax) 09/25/19 [place] [address] [facility] [place] [address] Consulting General Surgery 09/25/19 Shanna June, OPERATIONAL TRAINER [address] [place] [address] Referring Family Medicine 10/19/19 Head Shipper Relationship Specialty Start Date End Date Wally Foley MD [address] [place] [address] PCP - General Family Medicine 01/19/22 Antelmo Davey MD [address] [facility] [place] [place] [address] (Fax) 09/25/19 [place] [address] [place] [address] Consulting General Surgery 09/25/19 Shanna June, OPERATIONAL TRAINER [address] [place] [address] Referring Family Medicine 10/19/19 Head Shipper Relationship Specialty Start Date End Date Wally Foley MD [address] [facility] [place] [place] [address] PCP - General Family Medicine 01/19/22 Antelmo Davey MD [address] [facility] [place] [address] (Fax) 09/25/19 [place] [address] [place] [address] Consulting General Surgery 09/25/19 Shanna June, OPERATIONAL TRAINER [address] [place] [address] Referring Family Medicine 10/19/19 Head Shipper Relationship Specialty Start Date End Date Wally Foley MD [address] [place] [address] PCP - General Family Medicine 01/19/22 Antelmo Davey MD [address] [facility] [place] [address] (Fax) 09/25/19 [place] [address] [place] [address] Consulting General Surgery 09/25/19 Shanna June, OPERATIONAL TRAINER [address] [place] [address] Referring Family Medicine 10/19/19 Head Shipper Relationship Specialty Start Date End Date Wally Foley MD [address] [place] [address] PCP - General Family Medicine 01/19/22 Antelmo Davey MD [address] [place] [address] (Fax) 09/25/19 [place] [address] [place] [address] Consulting General Surgery 09/25/19 Shanna June, OPERATIONAL TRAINER [address] [place] [address] Referring Family Medicine 10/19/19 Head Shipper Relationship Specialty Start Date End Date Wally Foley MD [address] [place] [address] PCP - General Family Medicine 01/19/22 Antelmo Davey MD [address] [place] [address] (Fax) 09/25/19 [place] [address] [place] [address] Consulting General Surgery 09/25/19 Shanna June, OPERATIONAL TRAINER [address] [place] [address] Referring Family Medicine 10/19/19 Head Shipper Relationship Specialty Start Date End Date Wally Foley MD [address] [place] [address] PCP - General Family Medicine 01/19/22 Antelmo Davey MD [address] [place] [address] (Fax) 09/25/19 [place] [address] [place] [address] Consulting General Surgery 09/25/19 Shanna June, OPERATIONAL TRAINER [address] [place] [address] Referring Family Medicine 10/19/19 Head Shipper Relationship Specialty Start Date End Date Wally Foley MD [address] [place] [address] PCP - General Family Medicine 01/19/22 Antelmo Davey MD [address] [facility] [place] [address] (Fax) 09/25/19 [place] [address] [place] [address] Consulting General Surgery 09/25/19 Shanna June, OPERATIONAL TRAINER [address] [place] [address] Referring Family Medicine 10/19/19 Head Shipper Relationship Specialty Start Date End Date Wally Foley MD [address] [facility] [place] [address] PCP - General Family Medicine 01/19/22 Antelmo Davey MD [address] [facility] [place] [place] [address] (Fax) 09/25/19 [place] [address] [place] [address] Consulting General Surgery 09/25/19 Shanna June, OPERATIONAL TRAINER [address] [place] [address] Referring Family Medicine 10/19/19 Head Shipper Relationship Specialty Start Date End Date Wally Foley MD [address] [facility] [place] [address] PCP - General Family Medicine 01/19/22 Antelmo Davey MD [address] [facility] [place] [address] (Fax) 09/25/19 [place] [address] [place] [address] Consulting General Surgery 09/25/19 Shanna June, OPERATIONAL TRAINER [address] [place] [address] Referring Family Medicine 10/19/19 Head Shipper Relationship Specialty Start Date End Date Wally Foley MD [address] [facility] [place] [address] PCP - General Family Medicine 01/19/22 Antelmo Davey MD [address] [facility] [place] [address] (Fax) 09/25/19 [place] [address] [facility] [place] [address] Consulting General Surgery 09/25/19 Shanna June, OPERATIONAL TRAINER [address] [place] [address] Referring Family Medicine 10/19/19 Agustin Valentino [address] [facility] [address] [place] [address] Referring Family Medicine 05/13/22 Head Shipper Relationship Specialty Start Date End Date Jaquan Morrow [address] [place] [address] PCP - General 06/16/22 Antelmo Davey MD [address] [place] [address] 09/25/19 [place] [address] [place] [address] Consulting General Surgery 09/25/19 Shanna June, OPERATIONAL TRAINER [address] [place] [address] Referring Family Medicine 10/19/19 Agustin Valentino [address] [place] [address] Referring Family Medicine 05/13/22 Head Shipper Relationship Specialty Start Date End Date Jaquan Morrow [address] [place] [address] PCP - General 06/16/22 Antelmo Davey MD [address] [place] [address] 09/25/19 [place] [address] [place] [address] Consulting General Surgery 09/25/19 Shanna June, OPERATIONAL TRAINER [address] [place] [address] Referring Family Medicine 10/19/19 Agustin Valentino [address] [facility] [address] [place] [address] Referring Family Medicine 05/13/22 Head Shipper Relationship Specialty Start Date End Date Jaquan Morrow [address] [place] [address] PCP - General 06/16/22 Antelmo Davey MD [address] [place] [address] 09/25/19 [place] [address] [place] [address] Consulting General Surgery 09/25/19 Shanna June, OPERATIONAL TRAINER [address] [place] [address] Referring Family Medicine 10/19/19 Agustin Valentino [address] [facility] [address] [place] [address] Referring Family Medicine 05/13/22 Head Shipper Relationship Specialty Start Date End Date Jaquan Morrow [address] [place] [address] PCP - General 06/16/22 Antelmo Davey MD [address] [place] [address] 09/25/19 [place] [address] [place] [address] Consulting General Surgery 09/25/19 Shanna June, OPERATIONAL TRAINER [address] [place] [address] Referring Family Medicine 10/19/19 Agustin Valentino [address] [facility] [address] [place] [address] Referring Family Medicine 05/13/22 Head Shipper Relationship Specialty Start Date End Date Jaquan Morrow [address] [place] [address] PCP - General 06/16/22 Antelmo Davey MD [address] [place] [address] 09/25/19 [place] [address] [place] [address] Consulting General Surgery 09/25/19 Shanna June, OPERATIONAL TRAINER [address] [place] [address] Referring Family Medicine 10/19/19 Agustin Valentino [address] [facility] [address] [place] [address] Referring Family Medicine 05/13/22 Head Shipper Relationship Specialty Start Date End Date Jaquan Morrow [address] [place] [address] PCP - General 06/16/22 Antelmo Davey MD [address] [place] [address] 09/25/19 [place] [address] [place] [address] Consulting General Surgery 09/25/19 Shanna June, OPERATIONAL TRAINER [address] [place] [address] Referring Family Medicine 10/19/19 Agustin Valentino [address] [facility] [address] [place] [address] Referring Family Medicine 05/13/22 Head Shipper Relationship Specialty Start Date End Date Linda Morrowdi [address] [place] [address] PCP - General 06/16/22 Antelmo Davey MD [address] [place] [address] 09/25/19 [place] [address] [place] [address] Consulting General Surgery 09/25/19 Shanna June, OPERATIONAL TRAINER [address] [place] [address] Referring Family Medicine 10/19/19 Agustin Valentino [address] [facility] [address] [place] [address] Referring Family Medicine 05/13/22 Head Shipper Relationship Specialty Start Date End Date Linda Morrowdi [address] [place] [address] PCP - General 06/16/22 Antelmo Davey MD [address] [place] [address] 09/25/19 [place] [address] [place] [address] Consulting General Surgery 09/25/19 Shanna June, BETH [address] [place] [address] Referring Family Medicine 10/19/19 Agustin Valentino [address] [facility] [address] [place] [address] Referring Family Medicine 05/13/22 Head Shipper Relationship Specialty Start Date End Date Jaquan Morrow [address] [place] [address] PCP - General 06/16/22 Antelmo Davey MD [address] [place] [address] (Fax) 09/25/19 [place] [address] [place] [address] Consulting General Surgery 09/25/19 Shanna June CNP [address] [place] [address] Referring Family Medicine 10/19/19 Agustin Valentino [address] [facility] [place] [address] Referring Family Medicine 05/13/22 Head Shipper Relationship Specialty Start Date End Date Jaquan Morrow [address] [place] [address] PCP - General 06/16/22 Antelmo Davey MD [address] [place] [address] (Fax) 09/25/19 [place] [address] [place] [address] Consulting General Surgery 09/25/19 Shanna June, BETH [address] [place] [address] Referring Family Medicine 10/19/19 Agustin Valentino [address] [facility] [address] [place] [address] Referring Family Medicine 05/13/22 Head Shipper Relationship Specialty Start Date End Date Jaquan Morrow [address] [place] [address] PCP - General 06/16/22 Antelmo Davey MD [address] [place] [address] 09/25/19 [place] [address] [place] [address] Consulting General Surgery 09/25/19 Shanna June, BETH [address] [place] [address] Referring Family Medicine 10/19/19 Agustin Valentino [address] [facility] [place] [address] Referring Family Medicine 05/13/22 Head Shipper Relationship Specialty Start Date End Date Jaquan Morrow [address] [place] [address] PCP - General 06/16/22 Antelmo Davey MD [address] [place] [address] 09/25/19 [place] [address] [place] [address] Consulting General Surgery 09/25/19 Shanna June, BETH [address] [place] [address] Referring Family Medicine 10/19/19 Agustin Valentino [address] [place] [address] [place] [address] Referring Family Medicine 05/13/22 Head Shipper Relationship Specialty Start Date End Date Jaquan Morrow [address] [place] [address] PCP - General 06/16/22 Antelmo Davey MD [address] [place] [address] 09/25/19 [place] [address] [place] [address] Consulting General Surgery 09/25/19 Shanna June, BETH [address] [place] [address] Referring Family Medicine 10/19/19 Agustin Valentino PA [address] [place] [place] [address] [place] [address] Referring Family Medicine 05/13/22 Head Shipper Relationship Specialty Start Date End Date Jaquan Morrow [address] [place] [address] PCP - General 06/16/22 Antelmo Davey MD [address] [facility] [place] [address] (Fax) 09/25/19 [place] [address] [place] [address] Consulting General Surgery 09/25/19 Shanna June CNP [address] [place] [address] Referring Family Medicine 10/19/19 Agustin Valentino PA [address] [place] [address] [place] [address] Referring Family Medicine 05/13/22 Head Shipper Relationship Specialty Start Date End Date Wally Foley [address] [place] [address] PCP - General Specialist 07/27/21 Head Shipper Relationship Specialty Start Date End Date Shanna June FNP [address] [place] [address] PCP - General Nurse Practitioner - Family 01/30/20 Head Shipper Relationship Specialty Start Date End Date Jaquan Morrow [address] [place] [address] PCP - General 06/16/22 Antelmo Davey MD [address] [facility] [place] [address] (Fax) 09/25/19 [place] [address] [place] [address] Consulting General Surgery 09/25/19 Shanna June CNP [address] [place] [address] Referring Family Medicine 10/19/19 Agustin Valentino PA [address] [facility] [address] [place] [address] Referring Family Medicine 05/13/22 Head Shipper Relationship Specialty Start Date End Date Jaquan Morrow [address] [place] [address] PCP - General 06/16/22 Antelmo Davey MD [address] [place] [address] 09/25/19 [place] [address] [place] [address] Consulting General Surgery 09/25/19 Shanna June, OPERATIONAL TRAINER [address] [place] [address] Referring Family Medicine 10/19/19 Agustin Valentino PA [address] [facility] [address] [place] [address] Referring Family Medicine 05/13/22 Head Shipper Relationship Specialty Start Date End Date Jaquan Morrow [address] [place] [address] PCP - General 06/16/22 Antelmo Davey MD [address] [place] [address] (Fax) 09/25/19 [place] [address] [place] [address] Consulting General Surgery 09/25/19 Shanna June, BETH [address] [place] [address] Referring Family Medicine 10/19/19 Agustin Valentino PA [address] [place] [address] Referring Family Medicine 05/13/22 Head Shipper Relationship Specialty Start Date End Date Jaquan Morrow [address] [place] [address] PCP - General 06/16/22 Antelmo Davey MD [address] [place] [address] (Fax) 09/25/19 [place] [address] [place] [address] Consulting General Surgery 09/25/19 Shanna June, OPERATIONAL TRAINER [address] [place] [address] Referring Family Medicine 10/19/19 Agustin Valentino PA [address] [facility] [address] [place] [address] Referring Family Medicine 05/13/22 Head Shipper Relationship Specialty Start Date End Date Jaquan Morrow [address] [place] [address] PCP - General 06/16/22 Antelmo Davey MD [address] [place] [address] (Fax) 09/25/19 [place] [address] [place] [address] Consulting General Surgery 09/25/19 Shanna June, OPERATIONAL TRAINER [address] [place] [address] Referring Family Medicine 10/19/19 Agustin Valentino PA [address] [address] [place] [address] Referring Family Medicine 05/13/22 Head Shipper Relationship Specialty Start Date End Date Jaquan Morrow [address] [place] [address] PCP - General 06/16/22 Antelmo Davey MD [address] [place] [address] (Fax) 09/25/19 [place] [address] [place] [address] Consulting General Surgery 09/25/19 Shanna June, OPERATIONAL TRAINER [address] [place] [address] Referring Family Medicine 10/19/19 Agustin Valentino PA [address] [facility] [address] [place] [address] Referring Family Medicine 05/13/22 Head Shipper Relationship Specialty Start Date End Date Jaquan Morrow [address] [place] [address] PCP - General 06/16/22 Antelmo Davey MD [address] [place] [address] (Fax) 09/25/19 [place] [address] [place] [address] Consulting General Surgery 09/25/19 Shanna June, BETH [address] [place] [address] Referring Family Medicine 10/19/19 Agustin Valentino PA [address] [facility] [place] [address] Referring Family Medicine 05/13/22 Head Shipper Relationship Specialty Start Date End Date Jaquan Morrow [address] [place] [address] PCP - General 06/16/22 Antelmo Davey MD [address] [place] [address] (Fax) 09/25/19 [place] [address] [place] [address] Consulting General Surgery 09/25/19 Shanna June CNP [address] [place] [address] Referring Family Medicine 10/19/19 Agustin Valentino PA [address] [facility] [address] [place] [address] Referring Family Medicine 05/13/22 Head Shipper Relationship Specialty Start Date End Date Jaquan Morrow [address] [place] [address] PCP - General 06/16/22 Antelmo Davey MD [address] [place] [address] (Fax) 09/25/19 [place] [address] [place] [address] Consulting General Surgery 09/25/19 Shanna June, BETH [address] [place] [address] Referring Family Medicine 10/19/19 Agustin Valentino PA [address] [place] [address] [place] [address] Referring Family Medicine 05/13/22 Head Shipper Relationship Specialty Start Date End Date Jaquan Morrow [address] [place] [address] PCP - General 06/16/22 Antelmo Davey MD [address] [place] [address] (Fax) 09/25/19 [place] [address] [place] [address] Consulting General Surgery 09/25/19 Shanna June, BETH [address] [place] [address] Referring Family Medicine 10/19/19 Agustin Valentino PA [address] [facility] 150 [place] [address] Referring Family Medicine 05/13/22 Head Shipper Relationship Specialty Start Date End Date Jaquan Morrow [address] [place] [address] PCP - General 06/16/22 Antelmo Davey MD [address] [place] [address] (Fax) 09/25/19 [place] [address] [place] [address] Consulting General Surgery 09/25/19 Shanna June, OPERATIONAL TRAINER [address] [place] [address] Referring Family Medicine 10/19/19 Agustin Valentino, PA [address] [facility] [address] [place] [address] Referring Family Medicine 05/13/22 Head Shipper Relationship Specialty Start Date End Date Jaquan Morrow [address] [place] [address] PCP - General 06/16/22 Antelmo Davey MD [address] [place] [address] (Fax) 09/25/19 [place] [address] [place] [address] Consulting General Surgery 09/25/19 Shanna June, BETH [address] [place] [address] Referring Family Medicine 10/19/19 Agustin Valentino PA [address] [place] [address] [place] [address] Referring Family Medicine 05/13/22 Head Shipper Relationship Specialty Start Date End Date Jaquan Morrow [address] [place] [address] PCP - General 06/16/22 Antelmo Davey MD [address] [place] [address] (Fax) 09/25/19 [place] [address] [place] [address] Consulting General Surgery 09/25/19 Shanna June, BETH [address] [place] [address] Referring Family Medicine 10/19/19 Agustin Valentino PA [address] [facility] [address] [place] [address] Referring Family Medicine 05/13/22 Head Shipper Relationship Specialty Start Date End Date Jaquan Morrow [address] [place] [address] PCP - General 06/16/22 Antelmo Davey MD [address] [place] [address] (Fax) 09/25/19 [place] [address] [place] [address] Consulting General Surgery 09/25/19 Shanna June CNP [address] [place] [address] Referring Family Medicine 10/19/19 Agustin Valentino PA [address] [facility] [place] [address] Referring Family Medicine 05/13/22 Head Shipper Relationship Specialty Start Date End Date Jaquan Morrow [address] [place] [address] PCP - General 06/16/22 Antelmo Davey MD [address] [place] [address] (Fax) 09/25/19 [place] [address] [place] [address] Consulting General Surgery 09/25/19 Shanna June CNP [address] [place] [address] Referring Family Medicine 10/19/19 Agustin Valentino PA [address] [facility] [address] [place] [address] Referring Family Medicine 05/13/22 Head Shipper Relationship Specialty Start Date End Date Jaquan Morrow [address] [place] [address] PCP - General 06/16/22 Antelmo Davey MD [address] [place] [address] (Fax) 09/25/19 [place] [address] [place] [address] Consulting General Surgery 09/25/19 Shanna June, BETH [address] [place] [address] Referring Family Medicine 10/19/19 Agustin Valentino PA [address] [address] [place] [address] Referring Family Medicine 05/13/22 Head Shipper Relationship Specialty Start Date End Date Jaquan Morrow [address] [place] [address] PCP - General 06/16/22 Antelmo Davey MD [address] [place] [address] (Fax) 09/25/19 [place] [address] [place] [address] Consulting General Surgery 09/25/19 Shanna June, OPERATIONAL TRAINER [address] [place] [address] Referring Family Medicine 10/19/19 Agustin Valentino PA [address] [facility] [address] [place] [address] Referring Family Medicine 05/13/22 Head Shipper Relationship Specialty Start Date End Date Jaquan Morrow [address] [place] [address] PCP - General 06/16/22 Antelmo Davey MD [address] [facility] [address] (Fax) 09/25/19 [place] [address] [place] [address] Consulting General Surgery 09/25/19 Shanna June, OPERATIONAL TRAINER [address] [place] [address] Referring Family Medicine 10/19/19 Agustin Valentino PA [address] [facility] [address] [place] [address] Referring Family Medicine 05/13/22 Head Shipper Relationship Specialty Start Date End Date CristhianLindadi [address] [place] [address] PCP - General 06/16/22 Antelmo Davey MD [address] [place] [address] (Fax) 09/25/19 [place] [address] [place] [address] Consulting General Surgery 09/25/19 Shanna June, BETH [address] [place] [address] Referring Family Medicine 10/19/19 Agustin Valentino PA [address] [place] [address] [place] [address] Referring Family Medicine 05/13/22 Head Shipper Relationship Specialty Start Date End Date Jaquan Morrow [address] [place] [address] PCP - General 06/16/22 Antelmo Davey MD [address] [place] [address] (Fax) 09/25/19 [place] [address] [place] [address] Consulting General Surgery 09/25/19 Shanna June, BETH [address] [place] [address] Referring Family Medicine 10/19/19 Agustin Valentino PA [address] [address] [place] [address] Referring Family Medicine 05/13/22 Head Shipper Relationship Specialty Start Date End Date Jaquan Morrow, PAPER SORTER AND COUNTER.OPERATIONAL TRAINER [address] [place] [address] PCP - General 06/16/22 Antelmo Davey MD [address] [place] [address] 09/25/19 [place] [address] [place] [address] Consulting General Surgery 09/25/19 Shanna June CNP [address] [place] [address] Referring Family Medicine 10/19/19 Agustin Valentino PA [address] [address] [place] [address] Referring Family Medicine 05/13/22 Head Shipper Relationship Specialty Start Date End Date Jaquan Morrow, PAPER SORTER AND COUNTER.OPERATIONAL TRAINER [address] [place] [address] PCP - General 06/16/22 Antelmo Davey MD [address] [place] [address] 09/25/19 [place] [address] [place] [address] Consulting General Surgery 09/25/19 Shanna June, OPERATIONAL TRAINER [address] [place] [address] Referring Family Medicine 10/19/19 Agustin Valentino PA [address] [facility] [address] [place] [address] Referring Family Medicine 05/13/22 Head Shipper Relationship Specialty Start Date End Date Jaquan Morrow APRN.OPERATIONAL TRAINER [address] [place] [address] PCP - General 06/16/22 Antelmo Davey MD [address] [place] [address] 09/25/19 [place] [address] [place] [address] Consulting General Surgery 09/25/19 Shanna June, BETH [address] [place] [address] Referring Family Medicine 10/19/19 Agustin Valentino PA [address] [facility] [address] [place] [address] Referring Family Medicine 05/13/22 Head Shipper Relationship Specialty Start Date End Date Jaquan Morrow, PAPER SORTER AND COUNTER.OPERATIONAL TRAINER [address] [place] [address] PCP - General 06/16/22 Antelmo Davey MD [address] [place] [address] (Fax) 09/25/19 [place] [address] [place] [address] Consulting General Surgery 09/25/19 Shanna June CNP [address] [place] [address] Referring Family Medicine 10/19/19 Agustin Valentino PA [address] [place] [address] [address] Referring Family Medicine 05/13/22 Head Shipper Relationship Specialty Start Date End Date Jaquan Morrow, PAPER SORTER AND COUNTER.OPERATIONAL TRAINER [address] [place] [address] PCP - General 06/16/22 Antelmo Davey MD [address] [place] [address] (Fax) 09/25/19 [place] [address] [place] [address] Consulting General Surgery 09/25/19 Shanna June CNP [address] [place] [address] Referring Family Medicine 10/19/19 Agustin Valentino PA [address] [place] [address] Referring Family Medicine 05/13/22 Team Status: Active Member Role Status Dates Jaquan Morrow VISUAL TRAINING AIDE-C Primary Care Provider Active Team Status: Inactive Member Role Status Dates Jaquan Morrow VISUAL TRAINING AIDE-C Primary Care Provider Active Claus Obrien DO Emergency Provider Active Roseline Mejia DO RES Active Head Shipper Relationship Specialty Start Date End Date Generic Provider, No Assigned PcpMD [address] [place] [address] PCP - General Family Medicine 01/02/23 Head Shipper Relationship Specialty Start Date End Date Generic Provider, No Assigned PcpMD [address] [place] [address] PCP - General Family Medicine 01/02/23 Team Status: Inactive Member Role Status Dates Jaquan Morrow VISUAL TRAINING AIDE-C Primary Care Provider Active Start: February 13, [...] 2023 End: April 06, 2023 Trace Lowery [facility] Emergency Provider Active Start: April 06, 2023 End: April 06, 2023 Head Shipper Relationship Specialty Start Date End Date Generic Provider, No Assigned PcpMD [address] [place] [address] PCP - [facility] Medicine 01/02/23 Head Shipper Relationship Specialty Start Date End Date Jaquan Morrow APRN.CNP [address] [place] [address] PCP - General 06/16/22 Antelmo Davey MD [address] [place] [address] (Fax) 09/25/19 [place] [address] [place] [address] Consulting General Surgery 09/25/19 Shanna June CNP [address] [place] [address] Referring Family Medicine 10/19/19 Agustin Valentino PA [address] [place] [address] Referring Family Medicine 05/13/22 Head Shipper Relationship Specialty Start Date End Date Generic Provider, No Assigned PcpMD [address] [place] [address] PCP - General Family Medicine 01/02/23 Head Shipper Relationship Specialty Start Date End Date Jaquan Morrow, PAPER SORTER AND COUNTER.OPERATIONAL TRAINER [address] [place] [address] PCP - General 06/16/22 Antelmo Davey MD [address] [place] [address] (Fax) 09/25/19 [place] [address] [place] [address] Consulting General Surgery 09/25/19 Shanna June CNP [address] [place] [address] Referring Family Medicine 10/19/19 Agustin Valentino PA [address] [facility] [address] [place] [address] Referring Family Medicine 05/13/22 Head Shipper Relationship Specialty Start Date End Date Jaquan Morrow, PAPER SORTER AND COUNTER.OPERATIONAL TRAINER [address] [place] [address] PCP - General 06/16/22 Antelmo Davey MD [address] [facility] [place] [address] (Fax) 09/25/19 [place] [address] [place] [address] Consulting General Surgery 09/25/19 Shanna June, BETH [address] [place] [address] Referring Family Medicine 10/19/19 Agustin Valentino PA [address] [facility] [address] [place] [address] Referring Family Medicine 05/13/22 Head Shipper Relationship Specialty Start Date End Date Jaquan Morrow, PAPER SORTER AND COUNTER.OPERATIONAL TRAINER [address] [place] [address] PCP - General 06/16/22 Antelmo Davey MD [address] [place] [address] (Fax) 09/25/19 [place] [address] [place] [address] Consulting General Surgery 09/25/19 Shanna June CNP [address] [place] [address] Referring Family Medicine 10/19/19 Agustin Valentino PA [address] [place] [address] Referring Family Medicine 05/13/22 Head Shipper Relationship Specialty Start Date End Date Jaquan Morrow, PAPER SORTER AND COUNTER.OPERATIONAL TRAINER [address] [place] [address] PCP - General 06/16/22 Antelmo Davey MD [address] [place] [address] 09/25/19 [place] [address] [place] [address] Consulting General Surgery 09/25/19 Shanna June CNP [address] [place] [address] Referring Family Medicine 10/19/19 Agustin Valentino PA [address] [address] [place] [address] Referring Family Medicine 05/13/22 Head Shipper Relationship Specialty Start Date End Date Jaquan Morrow, PAPER SORTER AND COUNTER.OPERATIONAL TRAINER [address] [place] [address] PCP - General 06/16/22 Antelmo Davey MD [address] [place] [address] 09/25/19 [place] [address] [place] [address] Consulting General Surgery 09/25/19 Shanna June, OPERATIONAL TRAINER [address] [place] [address] Referring Family Medicine 10/19/19 Agustin Valentino PA [address] [place] [address], [place] [address] Referring Family Medicine 05/13/22 Head Shipper Relationship Specialty Start Date End Date Generic Provider, No Assigned PcpMD PCP - General Family Medicine 01/02/23 Head Shipper Relationship Specialty Start Date End Date Jaquan Morrow, PAPER SORTER AND COUNTER.OPERATIONAL TRAINER [address] [place] [address] PCP - General 06/16/22 Antelmo Davey MD [address] [place] [address] 09/25/19 [place] [address] [place] [address] Consulting General Surgery 09/25/19 Shanna June, BETH [address] [place] [address] Referring Family Medicine 10/19/19 Agustin Valentino PA [address] [facility] [place] [address] Referring Family Medicine 05/13/22 Head Shipper Relationship Specialty Start Date End Date Generic Provider, No Assigned Pcp, [place] [address] PCP - General Roll Skinner 06/29/23 Head Shipper Relationship Specialty Start Date End Date Generic Provider, No Assigned Pcp, [place] [address] PCP - General Roll Skinner 06/29/23 Head Shipper Relationship Specialty Start Date End Date Jaquan Morrow, PAPER SORTER AND COUNTER.OPERATIONAL TRAINER [address] [place] [address] PCP - General 06/16/22 Antelmo Davey MD [address] [place] [address] 09/25/19 [place] [address] [place] [address] Consulting General Surgery 09/25/19 Shanna June CNP [address] [place] [address] Referring Family Medicine 10/19/19 Agustin Valentino PA [address] [facility] [place] [address] Referring Family Medicine 05/13/22 Head Shipper Relationship Specialty Start Date End Date Jaquan Morrow PAPER SORTER AND COUNTER.OPERATIONAL TRAINER [address] [place] [address] PCP - General 06/16/22 Antelmo Davey MD [address] [facility] [place] [address] (Fax) 09/25/19 [place] [address] [place] [address] Consulting General Surgery 09/25/19 Shanna June, OPERATIONAL TRAINER [address] [place] [address] Referring Family Medicine 10/19/19 Agustin Valentino PA [address] [place] [address] Referring Family Medicine 05/13/22 Head Shipper Relationship Specialty Start Date End Date Jaquan Morrow, PAPER SORTER AND COUNTER.OPERATIONAL TRAINER [address] [place] [address] PCP - General 06/16/22 Antelmo Davey MD [address] [place] [address] 09/25/19 [place] [address] [place] [address] Consulting General Surgery 09/25/19 Shanna June, BETH [address] [place] [address] Referring Family Medicine 10/19/19 Agustin Valentino PA [address] [facility] [address] [place] [address] Referring Family Medicine 05/13/22 Head Shipper Relationship Specialty Start Date End Date Jaquan Morrow, PAPER SORTER AND COUNTER.OPERATIONAL TRAINER [address] [place] [address] PCP - General 06/16/22 Antelmo Davey MD [address] [place] [address] (Fax) 09/25/19 [place] [address] [place] [address] Consulting General Surgery 09/25/19 Shanna June, BETH [address] [place] [address] Referring Family Medicine 10/19/19 Agustin Valentino PA [address] [facility] [address] [place] [address] Referring Family Medicine 05/13/22 Head Shipper Relationship Specialty Start Date End Date Jaquan Morrow, PAPER SORTER AND COUNTER.OPERATIONAL TRAINER [address] [place] [address] PCP - General 06/16/22 Antelmo Davey MD [address] [place] [address] (Fax) 09/25/19 [place] [address] [place] [address] Consulting General Surgery 09/25/19 Shanna June CNP [address] [place] [address] Referring Family Medicine 10/19/19 Agustin Valentino PA [address] [address] [place] [address] Referring Family Medicine 05/13/22 Team Status: Inactive Member Role Status Dates Thomas Calix MD Primary Care Provider Active Start: July 17, 2023 End: July 17, 2023 Shaan Sabillon PA-C Emergency Provider Active Start: July 17, 2023 End: July 17, 2023 Camden Rodriguez DO Admit Provider, Attending Provider Active Start: July 17, 2023 End: July 17, 2023 Keven Kimborugh MD Other Provider Active Start: July 17, 2023 End: July 17, 2023 Head Shipper Relationship Specialty Start Date End Date Jaquan Morrow, PAPER SORTER AND COUNTER.OPERATIONAL TRAINER [address] [place] [address] PCP - General 06/16/22 Antelmo Davey MD [address] [place] [address] 09/25/19 [place] [address] [place] [address] Consulting General Surgery 09/25/19 Shanna June CNP [address] [place] [address] Referring Family Medicine 10/19/19 Agustin Valentino PA [address] [facility] [address] [place] [address] Referring Family Medicine 05/13/22 Team Status: Inactive Member Role Status Dates Thomas Calix MD Primary Care Provider Active Start: July 31, 2023 End: July 31, 2023 Jeramy Cunningham DO Emergency Provider Active Sta rt: July 31, 2023 End: July 31, 2023 Head Shipper Relationship Specialty Start Date End Date Thomas Calix MD [address] [place] [address] PCP - General Family Medicine 07/30/23 Antelmo Davey MD [address] [place] [address] 09/25/19 [place] [address] [place] [address] Consulting General Surgery 09/25/19 Shanna June CNP [address] [place] [address] Referring Family Medicine 10/19/19 Agustin Valentino PA [address] [address] Referring Family Medicine 05/13/22 Head Shipper Relationship Specialty Start Date End Date Thomas Calix MD [address] [place] [address] PCP - General Family Medicine 07/30/23 Antelmo Davey MD [address] [place] [address] 09/25/19 [place] [address] [place] [address] Consulting General Surgery 09/25/19 Shanna June, BETH [address] [place] [address] Referring Family Medicine 10/19/19 Agustin Valentino PA [address] [place] [address] Referring Family Medicine 05/13/22 Head Shipper Relationship Specialty Start Date End Date Thomas Calix MD [address] [place] [address] PCP - General Family Medicine 07/30/23 Antelmo Davey MD [address] [place] [address] 09/25/19 [place] [address] [place] [address] Consulting General Surgery 09/25/19 Shanna June, BETH [address] [place] [address] Referring Family Medicine 10/19/19 Agustin Valentino PA [address] [place] [address] Referring Family Medicine 05/13/22 Head Shipper Relationship Specialty Start Date End Date Thomas Calix MD [address] [place] [address] PCP - General Family Medicine 07/30/23 Antelmo Davey MD [address] [place] [address] (Fax) 09/25/19 [place] [address] [place] [address] Consulting General Surgery 09/25/19 Shanna June, BETH [address] [place] [address] Referring Family Medicine 10/19/19 Agustin Valentino PA [address] [place] [address] Referring Family Medicine 05/13/22 Head Shipper Relationship Specialty Start Date End Date Thomas Calix MD [address] [place] [address] PCP - General Family Medicine 07/30/23 Antelmo Davey MD [address] [place] [address] (Fax) 09/25/19 [place] [address] [place] [address] Consulting General Surgery 09/25/19 Shanna June, BETH [address] [place] [address] Referring Family Medicine 10/19/19 Agustin Valentino PA [address] [address] Referring Family Medicine 05/13/22 Head Shipper Relationship Specialty Start Date End Date Thomas Calix MD [address] [place] [address] PCP - General Family Medicine 07/30/23 Antelmo Davey MD [address] [place] [address] 09/25/19 [place] [address] [facility] [place] [address] Consulting General Surgery 09/25/19 Shanna June CNP [address] [place] [address] Referring Family Medicine 10/19/19 Agustin Valentino PA [address] [address] Referring Family Medicine 05/13/22 Team Status: Inactive [...] August 21, 2023 End: August 21, 2023 Head Shipper Relationship Specialty Start Date End Date Thomas Calix MD [address] [place] [address] PCP - General Family Medicine 07/30/23 Antelmo Davey MD [address] [place] [address] 09/25/19 [place] [address] [address] [place] [id number] Consulting General Surgery 09/25/19 Shnana June CNP [address] [place] [address] Referring Family Medicine 10/19/19 Agustin Valentino PA [address] [place] [address] Referring Family Medicine 05/13/22 Head Shipper Relationship Specialty Start Date End Date Thomas Calix MD [address] [place] [address] PCP - General Family Medicine 07/30/23 Antelmo Davey MD [address] [place] [address] 09/25/19 [place] [address] [place] [address] Consulting General Surgery 09/25/19 Shanna June, BETH [address] [place] [address] Referring Family Medicine 10/19/19 Agustin Valentino PA [address] [facility] [address] [place] [address] Referring Family Medicine 05/13/22 Head Shipper Relationship Specialty Start Date End Date Thomas Calix MD [address] [place] [address] PCP - General Family Medicine 07/30/23 Antelmo Davey MD [address] [place] [address] 09/25/19 [place] [address] [facility] [place] [address] Consulting General Surgery 09/25/19 Shanna June, BETH [address] [place] [address] Referring Family Medicine 10/19/19 Agustin Valentino PA [address] [facility] [address] [place] [address] Referring Family Medicine 05/13/22 Head Shipper Relationship Specialty Start Date End Date Thmoas Calix MD [address] [place] [address] PCP - General Family Medicine 07/30/23 Antelmo Davey MD [address] [place] [address] 09/25/19 [place] [address] [place] [address] Consulting General Surgery 09/25/19 Shanna June, BETH [address] [place] [address] Referring Family Medicine 10/19/19 Agustin Valentino PA [address] [place] [address] Referring Family Medicine 05/13/22 Head Shipper Relationship Specialty Start Date End Date Thomas Calix MD [address] [place] [address] PCP - General Family Medicine 07/30/23 Antelmo Davey MD [address] [place] [address] 09/25/19 [place] [address] [place] [address] Consulting General Surgery 09/25/19 Shanna June, BETH [address] [place] [address] Referring Family Medicine 10/19/19 Agustin Valentino PA [address] [place] [address] Referring Family Medicine 05/13/22 Head Shipper Relationship Specialty Start Date End Date Thomas Calix MD [address] [place] [address] PCP - General Family Medicine 07/30/23 Antelmo Davey MD [address] [place] [address] (Fax) 09/25/19 [place] [address] [place] [address] Consulting General Surgery 09/25/19 Shanna June CNP [address] [place] [address] Referring Family Medicine 10/19/19 Agustin Valentino PA [address] [place] [address] Referring Family Medicine 05/13/22 Head Shipper Relationship Specialty Start Date End Date Thomas Calix MD [address] [place] [address] PCP - General Family Medicine 07/30/23 Antelmo Davey MD [address] [place] [address] (Fax) 09/25/19 [place] [address] [place] [address] Consulting General Surgery 09/25/19 Shanna June, BETH [address] [place] [address] Referring Family Medicine 10/19/19 Agustin Valentino PA 112 [facility] [address] [place] [address] Referring Family Medicine 05/13/22 Head Shipper Relationship Specialty Start Date End Date Thomas Calix MD [address] [place] [address] PCP - General Family Medicine 07/30/23 Antelmo Davey MD [address] [place] [address] 09/25/19 [place] [address] [place] [address] Consulting General Surgery 09/25/19 Shanna June CNP [address] [place] [address] Referring Family Medicine 10/19/19 Agustin Valentino PA [address] [place] [address] [place] [address] Referring Family Medicine 05/13/22 Head Shipper Relationship Specialty Start Date End Date Thomas Calix MD [address] [place] [address] PCP - General Family Medicine 07/30/23 Antelmo Davey MD [address] [place] [address] 09/25/19 [place] [address] [place] [address] Consulting General Surgery 09/25/19 Shanna June, BETH [address] [place] [address] Referring Family Medicine 10/19/19 Agustin Valentino PA [address] [facility] [address] [place] [address] Referring Family Medicine 05/13/22 Head Shipper Relationship Specialty Start Date End Date Thomas Calix MD [address] [place] [address] PCP - General Family Medicine 07/30/23 Antelmo Davey MD [address] [place] [address] 09/25/19 [place] [address] [place] [address] Consulting General Surgery 09/25/19 Shanna June, OPERATIONAL TRAINER [address] [place] [address] Referring Family Medicine 10/19/19 Agustin Valentino PA [address] [place] [address] [place] [address] Referring Family Medicine 05/13/22 Head Shipper Relationship Specialty Start Date End Date Thomas Calix MD [address] [place] [address] PCP - General Family Medicine 07/30/23 Antelmo Davey MD [address] [place] [address] (Fax) 09/25/19 [place] [address] [place] [address] Consulting General Surgery 09/25/19 Shanna June, BETH [address] [place] [address] Referring Family Medicine 10/19/19 Agustin Valentino PA [address] [place] [address] Referring Family Medicine 05/13/22 Head Shipper Relationship Specialty Start Date End Date Thomas Calix MD [address] [place] [address] PCP - General Family Medicine 07/30/23 Antelmo Davey MD [address] [place] [address] 09/25/19 [place] [address] [place] [address] Consulting General Surgery 09/25/19 Shanna June, BETH [address] [place] [address] Referring Family Medicine 10/19/19 Agustin Valentino PA [address] [place] [address] Referring Family Medicine 05/13/22 Head Shipper Relationship Specialty Start Date End Date Thomas Calix MD [address] [place] [address] PCP - General Family Medicine 07/30/23 Antelmo Davey MD [address] [place] [address] (Fax) 09/25/19 [place] [address] [place] [address] Consulting General Surgery 09/25/19 Shanna June CNP [address] [place] [address] Referring Family Medicine 10/19/19 Agustin Valentino PA [address] [address] Referring Family Medicine 05/13/22 Head Shipper Relationship Specialty Start Date End Date Thomas Calix MD [address] [place] [address] PCP - General Family Medicine 07/30/23 Antelmo Davey MD [address] [place] [address] (Fax) 09/25/19 [place] [address] [place] [address] Consulting General Surgery 09/25/19 Shanna June CNP [address] [place] [address] Referring Family Medicine 10/19/19 Agustin Valentino PA [address] [place] [address] [address] [place] [address] Referring Family Medicine 05/13/22 Head Shipper Relationship Specialty Start Date End Date Thomas Calix MD [address] [place] [address] PCP - General Family Medicine 07/30/23 Antelmo Davey MD [address] [place] [address] 09/25/19 [place] [address] [place] [address] Consulting General Surgery 09/25/19 Shanna June CNP [address] [place] [address] Referring Family Medicine 10/19/19 Agustin Valentino PA [address] [place] [address] Referring Family Medicine 05/13/22 Head Shipper Relationship Specialty Start Date End Date Thomas Calix MD [address] [place] [address] PCP - General Family Medicine 07/30/23 Antelmo Davey MD [address] [place] [address] (Fax) 09/25/19 [place] [address] [place] [address] Consulting General Surgery 09/25/19 Shanna June, BETH [address] [place] [address] Referring Family Medicine 10/19/19 Agustin Valentino PA [address] [place] [address] [address] Referring Family Medicine 05/13/22 Head Shipper Relationship Specialty Start Date End Date Thomas Calix MD [address] [place] [address] PCP - General Family Medicine 07/30/23 Antelmo Davey MD [address] [place] [address] (Fax) 09/25/19 [place] [address] [place] [address] Consulting General Surgery 09/25/19 Shanna June, BETH [address] [place] [address] Referring Family Medicine 10/19/19 Agustin Valentino PA [address] [address] Referring Family Medicine 05/13/22 Head Shipper Relationship Specialty Start Date End Date Thomas Calix MD [address] [facility] [place] [address] PCP - General Family Medicine 07/30/23 Antelmo Davey MD [address] [place] [address] (Fax) 09/25/19 [place] [address] [place] [address] Consulting General Surgery 09/25/19 Shanna June CNP [address] [place] [address] Referring Family Medicine 10/19/19 Agustin Valentino PA [address] [place] [address] Referring Family Medicine 05/13/22 Head Shipper Relationship Specialty Start Date End Date Thomas Calix MD [address] [facility] [place] [address] PCP - General Family Medicine 07/30/23 Antelmo Davey MD [address] [place] [address] (Fax) 09/25/19 [place] [address] [place] [address] Consulting General Surgery 09/25/19 Shanna June CNP [address] [place] [address] Referring Family Medicine 10/19/19 Agustin Valentino PA [address] [facility] [address] [place] [address] Referring Family Medicine 05/13/22 Head Shipper Relationship Specialty Start Date End Date Thomas Calix MD [address] [place] [address] PCP - General Family Medicine 07/30/23 Antelmo Davey MD [address] [place] [address] 09/25/19 [place] [address] [place] [address] Consulting General Surgery 09/25/19 Shanna June, BETH [address] [place] [address] Referring Family Medicine 10/19/19 Agustin Valentino PA [address] [place] [address] Referring Family Medicine 05/13/22 Head Shipper Relationship Specialty Start Date End Date Thomas Calix MD [address] [place] [address] PCP - General Family Medicine 07/30/23 Antelmo Davey MD [address] [place] [address] (Fax) 09/25/19 [place] [address] [address] [address] Consulting General Surgery 09/25/19 Shanna June CNP [address] [place] [address] Referring Family Medicine 10/19/19 Agustin Valentino PA [address] [facility] [address] [place] [address] Referring Family Medicine 05/13/22 Head Shipper Relationship Specialty Start Date End Date Thomas Calix MD [address] [place] [facility] [place] [address] PCP - General Family Medicine 07/30/23 Antelmo Davey MD [address] [place] [address] 09/25/19 [place] [address] [place] [address] Consulting General Surgery 09/25/19 Shanna June, BETH [address] [place] [address] Referring Family Medicine 10/19/19 Agustin Valentino PA [address] [facility] [address] [place] [address] Referring Family Medicine 05/13/22 Head Shipper Relationship Specialty Start Date End Date Thomas Calix MD [address] [place] [address] PCP - General Family Medicine 07/30/23 Antelmo Davey MD [address] [place] [address] (Fax) 09/25/19 [place] [address] [facility] [place] [address] Consulting General Surgery 09/25/19 Shanna June CNP [address] [place] [address] Referring Family Medicine 10/19/19 Agustin Valentino PA [address] [place] [address] Referring Family Medicine 05/13/22 Head Shipper Relationship Specialty Start Date End Date Thomas Calix MD [address] [place] [address] PCP - General Family Medicine 07/30/23 Antelmo Davey MD [address] [place] [address] (Fax) 09/25/19 [place] [address] [place] [address] Consulting General Surgery 09/25/19 Shanna June CNP [address] [place] [address] Referring Family Medicine 10/19/19 Agustin Valentino PA [address] [facility] [address] Referring Family Medicine 05/13/22 Head Shipper Relationship Specialty Start Date End Date Wally Foley MD [address] [facility] [place] [address] PCP - General Family Medicine 01/19/22 06/15/22 Antelmo Davey MD [address] [facility] [place] [address] (Fax) 09/25/19 [place] [address] [place] [address] Consulting General Surgery 09/25/19 Shanna June CNP [address] [place] [address] Referring Family Medicine 10/19/19 Head Shipper Relationship Specialty Start Date End Date Shanna June CNP [address] [place] [address] PCP - General Family Medicine 01/31/20 01/18/22 Antelmo Davey MD [address] [facility] [place] [address] 09/25/19 [place] [address] [place] [address] Consulting General Surgery 09/25/19 Shanna June CNP [address] [place] [address] Referring Family Medicine 10/19/19 Head Shipper Relationship Specialty Start Date End Date Thomas Calix MD [address] [place] [address] PCP - General Family Medicine 07/30/23 Antelmo Davey MD [address] [place] [address] 09/25/19 [place] [address] [place] [address] Consulting General Surgery 09/25/19 Shanna June CNP [address] [place] [address] Referring Family Medicine 10/19/19 Agustin Valentino PA [address] [place] [address] [place] [address] Referring Family Medicine 05/13/22 Source Comments (unrecognize d section and content) In the event this informatio n is protected by the Federal Confidentiality of Alcohol and Drug Abuse Patient Records regulations: The Federal rules restrict any use of the information to criminally investigate or prosecute any alcohol or drug abuse patient.[facility] HospitalIn the event this information is protected by the Federal Confidentiality of Alcohol and Drug Abuse Patient Records regulations: The Federal rules restrict any use of the information to criminally investigate or prosecute any alcohol or drug abuse patient.[facility] HospitalIn the event this information is protected by the Federal Confidentiality of Alcohol and Drug Abuse Patient Records regulations: The Federal rules restrict any use of the information to criminally investigate or prosecute any alcohol or drug abuse patient.[facility] HospitalIn the event this information is protected by the Federal Confidentiality of Alcohol and Drug Abuse Patient Records regulations: The Federal rules restrict any use of the information to criminally investigate or prosecute any alcohol or drug abuse patient.[facility] HospitalIn the event this information is protected by the Federal Confidentiality of Alcohol and Drug Abuse Patient Records regulations: The Federal rules restrict any use of the information to criminally investigate or prosecute any alcohol or drug abuse patient.[facility] HospitalIn the event this information is protected by the Federal Confidentiality of Alcohol and Drug Abuse Patient Records regulations: The Federal rules restrict any use of the information to criminally investigate or prosecute any alcohol or drug abuse patient.[facility] HospitalIn the event this information is protected by the Federal Confidentiality of Alcohol and Drug Abuse Patient Records regulations: The Federal rules restrict any use of the information to criminally investigate or prosecute any alcohol or drug abuse patient.[facility] HospitalIn the event this information is protected by the Federal Confidentiality of Alcohol and Drug Abuse Patient Records regulations: The Federal rules restrict any use of the information to criminally investigate or prosecute any alcohol or drug abuse patient.[facility] HospitalIn the event this information is protected by the Federal Confidentiality of Alcohol and Drug Abuse Patient Records regulations: The Federal rules restrict any use of the information to criminally investigate or prosecute any alcohol or drug abuse patient.[facility] HospitalIn the event this information is protected by the Federal Confidentiality of Alcohol and Drug Abuse Patient Records regulations: The Federal rules restrict any use of the information to criminally investigate or prosecute any alcohol or drug abuse patient.[facility] HospitalIn the event this information is protected by the Federal Confidentiality of Alcohol and Drug Abuse Patient Records regulations: The Federal rules restrict any use of the information to criminally investigate or prosecute any alcohol or drug abuse patient.[facility] HospitalIn the event this information is protected by the Federal Confidentiality of Alcohol and Drug Abuse Patient Records regulations: The Federal rules restrict any use of the information to criminally investigate or prosecute any alcohol or drug abuse patient.[facility] HospitalIn the event this information is protected by the Federal Confidentiality of Alcohol and Drug Abuse Patient Records regulations: The Federal rules restrict any use of the information to criminally investigate or prosecute any alcohol or drug abuse patient.[facility] HospitalIn the event this information is protected by the Federal Confidentiality of Alcohol and Drug Abuse Patient Records regulations: The Federal rules restrict any use of the information to criminally investigate or prosecute any alcohol or drug abuse patient.[facility] HospitalIn the event this information is protected by the Federal Confidentiality of Alcohol and Drug Abuse Patient Records regulations: The Federal rules restrict any use of the information to criminally investigate or prosecute any alcohol or drug abuse patient.[facility] HospitalIn the event this information is protected by the Federal Confidentiality of Alcohol and Drug Abuse Patient Records regulations: The Federal rules restrict any use of the information to criminally investigate or prosecute any alcohol or drug abuse patient.[facility] HospitalIn the event this information is protected by the Federal Confidentiality of Alcohol and Drug Abuse Patient Records regulations: The Federal rules restrict any use of the information to criminally investigate or prosecute any alcohol or drug abuse patient.[facility] HospitalIn the event this information is protected by the Federal Confidentiality of Alcohol and Drug Abuse Patient Records regulations: The Federal rules restrict any use of the information to criminally investigate or prosecute any alcohol or drug abuse patient.[facility] HospitalIn the event this information is protected by the Federal Confidentiality of Alcohol and Drug Abuse Patient Records regulations: The Federal rules restrict any use of the information to criminally investigate or prosecute any alcohol or drug abuse patient.[facility] HospitalIn the event this information is protected by the Federal Confidentiality of Alcohol and Drug Abuse Patient Records regulations: The Federal rules restrict any use of the information to criminally investigate or prosecute any alcohol or drug abuse patient.[facility] HospitalIn the event this information is protected by the Federal Confidentiality of Alcohol and Drug Abuse Patient Records regulations: The Federal rules restrict any use of the information to criminally investigate or prosecute any alcohol or drug abuse patient.[facility] HospitalIn the event this information is protected by the Federal Confidentiality of Alcohol and Drug Abuse Patient Records regulations: The Federal rules restrict any use of the information to criminally investigate or prosecute any alcohol or drug abuse patient.[facility] HospitalIn the event this information is protected by the Federal Confidentiality of Alcohol and Drug Abuse Patient Records regulations: The Federal rules restrict any use of the information to criminally investigate or prosecute any alcohol or drug abuse patient.[facility] HospitalIn the event this information is protected by the Federal Confidentiality of Alcohol and Drug Abuse Patient Records regulations: The Federal rules restrict any use of the information to criminally investigate or prosecute any alcohol or drug abuse patient.[facility] HospitalIn the event this information is protected by the Federal Confidentiality of Alcohol and Drug Abuse Patient Records regulations: The Federal rules restrict any use of the information to criminally investigate or prosecute any alcohol or drug abuse patient.[facility] HospitalIn the event this information is protected by the Federal Confidentiality of Alcohol and Drug Abuse Patient Records regulations: The Federal rules restrict any use of the information to criminally investigate or prosecute any alcohol or drug abuse patient.[facility] HospitalIn the event this information is protected by the Federal Confidentiality of Alcohol and Drug Abuse Patient Records regulations: The Federal rules restrict any use of the information to criminally investigate or prosecute any alcohol or drug abuse patient.[facility] HospitalIn the event this information is protected by the Federal Confidentiality of Alcohol and Drug Abuse Patient Records regulations: The Federal rules restrict any use of the information to criminally investigate or prosecute any alcohol or drug abuse patient.[facility] HospitalIn the event this information is protected by the Federal Confidentiality of Alcohol and Drug Abuse Patient Records regulations: The Federal rules restrict any use of the information to criminally investigate or prosecute any alcohol or drug abuse patient.[facility] HospitalIn the event this information is protected by the Federal Confidentiality of Alcohol and Drug Abuse Patient Records regulations: The Federal rules restrict any use of the information to criminally investigate or prosecute any alcohol or drug abuse patient.[facility]In the event this information is protected by the Federal Confidentiality of Alcohol and Drug Abuse Patient Records regulations: The Federal rules restrict any use of the information to criminally investigate or prosecute any alcohol or drug abuse patient.[facility] HospitalIn the event this information is protected by the Federal Confidentiality of Alcohol and Drug Abuse Patient Records regulations: The Federal rules restrict any use of the information to criminally investigate or prosecute any alcohol or drug abuse patient.[facility] HospitalIn the event this information is protected by the Federal Confidentiality of Alcohol and Drug Abuse Patient Records regulations: The Federal rules restrict any use of the information to criminally investigate or prosecute any alcohol or drug abuse patient.[facility] HospitalIn the event this information is protected by the Federal Confidentiality of Alcohol and Drug Abuse Patient Records regulations: The Federal rules restrict any use of the information to criminally investigate or prosecute any alcohol or drug abuse patient.[facility] HospitalIn the event this information is protected by the Federal Confidentiality of Alcohol and Drug Abuse Patient Records regulations: The Federal rules restrict any use of the information to criminally investigate or prosecute any alcohol or drug abuse patient.[facility] HospitalIn the event this information is protected by the Federal Confidentiality of Alcohol and Drug Abuse Patient Records regulations: The Federal rules restrict any use of the information to criminally investigate or prosecute any alcohol or drug abuse patient.[facility] HospitalIn the event this information is protected by the Federal Confidentiality of Alcohol and Drug Abuse Patient Records regulations: The Federal rules restrict any use of the information to criminally investigate or prosecute any alcohol or drug abuse patient.[facility] HospitalIn the event this information is protected by the Federal Confidentiality of Alcohol and Drug Abuse Patient Records regulations: The Federal rules restrict any use of the information to criminally investigate or prosecute any alcohol or drug abuse patient.[facility] HospitalIn the event this information is protected by the Federal Confidentiality of Alcohol and Drug Abuse Patient Records regulations: The Federal rules restrict any use of the information to criminally investigate or prosecute any alcohol or drug abuse patient.[facility] HospitalIn the event this information is protected by the Federal Confidentiality of Alcohol and Drug Abuse Patient Records regulations: The Federal rules restrict any use of the information to criminally investigate or prosecute any alcohol or drug abuse patient.[facility] HospitalIn the event this information is protected by the Federal Confidentiality of Alcohol and Drug Abuse Patient Records regulations: The Federal rules restrict any use of the information to criminally investigate or prosecute any alcohol or drug abuse patient.[facility] HospitalIn the event this information is protected by the Federal Confidentiality of Alcohol and Drug Abuse Patient Records regulations: The Federal rules restrict any use of the information to criminally investigate or prosecute any alcohol or drug abuse patient.[facility] HospitalIn the event this information is protected by the Federal Confidentiality of Alcohol and Drug Abuse Patient Records regulations: The Federal rules restrict any use of the information to criminally investigate or prosecute any alcohol or drug abuse patient.[facility] HospitalIn the event this information is protected by the Federal Confidentiality of Alcohol and Drug Abuse Patient Records regulations: The Federal rules restrict any use of the information to criminally investigate or prosecute any alcohol or drug abuse patient.[facility] HospitalIn the event this information is protected by the Federal Confidentiality of Alcohol and Drug Abuse Patient Records regulations: The Federal rules restrict any use of the information to criminally investigate or prosecute any alcohol or drug abuse patient.[facility] HospitalIn the event this information is protected by the Federal Confidentiality of Alcohol and Drug Abuse Patient Records regulations: The Federal rules restrict any use of the information to criminally investigate or prosecute any alcohol or drug abuse patient.[facility] HospitalIn the event this information is protected by the Federal Confidentiality of Alcohol and Drug Abuse Patient Records regulations: The Federal rules restrict any use of the information to criminally investigate or prosecute any alcohol or drug abuse patient.[facility] HospitalIn the event this information is protected by the Federal Confidentiality of Alcohol and Drug Abuse Patient Records regulations: The Federal rules restrict any use of the information to criminally investigate or prosecute any alcohol or drug abuse patient.[facility] HospitalIn the event this information is protected by the Federal Confidentiality of Alcohol and Drug Abuse Patient Records regulations: The Federal rules restrict any use of the information to criminally investigate or prosecute any alcohol or drug abuse patient.[facility] HospitalIn the event this information is protected by the Federal Confidentiality of Alcohol and Drug Abuse Patient Records regulations: The Federal rules restrict any use of the information to criminally investigate or prosecute any alcohol or drug abuse patient.[facility] HospitalIn the event this information is protected by the Federal Confidentiality of Alcohol and Drug Abuse Patient Records regulations: The Federal rules restrict any use of the information to criminally investigate or prosecute any alcohol or drug abuse patient.[facility] HospitalIn the event this information is protected by the Federal Confidentiality of Alcohol and Drug Abuse Patient Records regulations: The Federal rules restrict any use of the information to criminally investigate or prosecute any alcohol or drug abuse patient.[facility] HospitalIn the event this information is protected by the Federal Confidentiality of Alcohol and Drug Abuse Patient Records regulations: The Federal rules restrict any use of the information to criminally investigate or prosecute any alcohol or drug abuse patient.[facility] HospitalIn the event this information is protected by the Federal Confidentiality of Alcohol and Drug Abuse Patient Records regulations: The Federal rules restrict any use of the information to criminally investigate or prosecute any alcohol or drug abuse patient.[facility] HospitalIn the event this information is protected by the Federal Confidentiality of Alcohol and Drug Abuse Patient Records regulations: The Federal rules restrict any use of the information to criminally investigate or prosecute any alcohol or drug abuse patient.[facility] HospitalIn the event this information is protected by the Federal Confidentiality of Alcohol and Drug Abuse Patient Records regulations: The Federal rules restrict any use of the information to criminally investigate or prosecute any alcohol or drug abuse patient.[facility] HospitalIn the event this information is protected by the Federal Confidentiality of Alcohol and Drug Abuse Patient Records regulations: The Federal rules restrict any use of the information to criminally investigate or prosecute any alcohol or drug abuse patient.[facility] HospitalIn the event this information is protected by the Federal Confidentiality of Alcohol and Drug Abuse Patient Records regulations: The Federal rules restrict any use of the information to criminally investigate or prosecute any alcohol or drug abuse patient.[facility] HospitalIn the event this information is protected by the Federal Confidentiality of Alcohol and Drug Abuse Patient Records regulations: The Federal rules restrict any use of the information to criminally investigate or prosecute any alcohol or drug abuse patient.[facility] HospitalIn the event this information is protected by the Federal Confidentiality of Alcohol and Drug Abuse Patient Records regulations: The Federal rules restrict any use of the information to criminally investigate or prosecute any alcohol or drug abuse patient.[facility] HospitalIn the event this information is protected by the Federal Confidentiality of Alcohol and Drug Abuse Patient Records regulations: The Federal rules restrict any use of the information to criminally investigate or prosecute any alcohol or drug abuse patient.[facility] HospitalIn the event this information is protected by the Federal Confidentiality of Alcohol and Drug Abuse Patient Records regulations: The Federal rules restrict any use of the information to criminally investigate or prosecute any alcohol or drug abuse patient.[facility] HospitalIn the event this information is protected by the Federal Confidentiality of Alcohol and Drug Abuse Patient Records regulations: The Federal rules restrict any use of the information to criminally investigate or prosecute any alcohol or drug abuse patient.[facility] HospitalIn the event this information is protected by the Federal Confidentiality of Alcohol and Drug Abuse Patient Records regulations: The Federal rules restrict any use of the information to criminally investigate or prosecute any alcohol or drug abuse patient.[facility] HospitalIn the event this information is protected by the Federal Confidentiality of Alcohol and Drug Abuse Patient Records regulations: The Federal rules restrict any use of the information to criminally investigate or prosecute any alcohol or drug abuse patient.[facility] HospitalIn the event this information is protected by the Federal Confidentiality of Alcohol and Drug Abuse Patient Records regulations: The Federal rules restrict any use of the information to criminally investigate or prosecute any alcohol or drug abuse patient.[facility] HospitalIn the event this information is protected by the Federal Confidentiality of Alcohol and Drug Abuse Patient Records regulations: The Federal rules restrict any use of the information to criminally investigate or prosecute any alcohol or drug abuse patient.[facility] HospitalIn the event this information is protected by the Federal Confidentiality of Alcohol and Drug Abuse Patient Records regulations: The Federal rules restrict any use of the information to criminally investigate or prosecute any alcohol or drug abuse patient.[facility] HospitalIn the event this information is protected by the Federal Confidentiality of Alcohol and Drug Abuse Patient Records regulations: The Federal rules restrict any use of the information to criminally investigate or prosecute any alcohol or drug abuse patient.[facility] HospitalIn the event this information is protected by the Federal Confidentiality of Alcohol and Drug Abuse Patient Records regulations: The Federal rules restrict any use of the information to criminally investigate or prosecute any alcohol or drug abuse patient.[facility] HospitalIn the event this information is protected by the Federal Confidentiality of Alcohol and Drug Abuse Patient Records regulations: The Federal rules restrict any use of the information to criminally investigate or prosecute any alcohol or drug abuse patient.[facility] HospitalIn the event this information is protected by the Federal Confidentiality of Alcohol and Drug Abuse Patient Records regulations: The Federal rules restrict any use of the information to criminally investigate or prosecute any alcohol or drug abuse patient.[facility] HospitalIn the event this information is protected by the Federal Confidentiality of Alcohol and Drug Abuse Patient Records regulations: The Federal rules restrict any use of the information to criminally investigate or prosecute any alcohol or drug abuse patient.[facility] HospitalIn the event this information is protected by the Federal Confidentiality of Alcohol and Drug Abuse Patient Records regulations: The Federal rules restrict any use of the information to criminally investigate or prosecute any alcohol or drug abuse patient.[facility] HospitalIn the event this information is protected by the Federal Confidentiality of Alcohol and Drug Abuse Patient Records regulations: The Federal rules restrict any use of the information to criminally investigate or prosecute any alcohol or drug abuse patient.[facility] HospitalIn the event this information is protected by the Federal Confidentiality of Alcohol and Drug Abuse Patient Records regulations: The Federal rules restrict any use of the information to criminally investigate or prosecute any alcohol or drug abuse patient.[facility] HospitalIn the event this information is protected by the Federal Confidentiality of Alcohol and Drug Abuse Patient Records regulations: The Federal rules restrict any use of the information to criminally investigate or prosecute any alcohol or drug abuse patient.[facility] HospitalIn the event this information is protected by the Federal Confidentiality of Alcohol and Drug Abuse Patient Records regulations: The Federal rules restrict any use of the information to criminally investigate or prosecute any alcohol or drug abuse patient.[facility] HospitalIn the event this information is protected by the Federal Confidentiality of Alcohol and Drug Abuse Patient Records regulations: The Federal rules restrict any use of the information to criminally investigate or prosecute any alcohol or drug abuse patient.[facility] HospitalIn the event this information is protected by the Federal Confidentiality of Alcohol and Drug Abuse Patient Records regulations: The Federal rules restrict any use of the information to criminally investigate or prosecute any alcohol or drug abuse patient.[facility] HospitalIn the event this information is protected by the Federal Confidentiality of Alcohol and Drug Abuse Patient Records regulations: The Federal rules restrict any use of the information to criminally investigate or prosecute any alcohol or drug abuse patient.[facility] HospitalIn the event this information is protected by the Federal Confidentiality of Alcohol and Drug Abuse Patient Records regulations: The Federal rules restrict any use of the information to criminally investigate or prosecute any alcohol or drug abuse patient.[facility] HospitalIn the event this information is protected by the Federal Confidentiality of Alcohol and Drug Abuse Patient Records regulations: The Federal rules restrict any use of the information to criminally investigate or prosecute any alcohol or drug abuse patient.[facility] HospitalIn the event this information is protected by the Federal Confidentiality of Alcohol and Drug Abuse Patient Records regulations: The Federal rules restrict any use of the information to criminally investigate or prosecute any alcohol or drug abuse patient.[facility] HospitalIn the event this information is protected by the Federal Confidentiality of Alcohol and Drug Abuse Patient Records regulations: The Federal rules restrict any use of the information to criminally investigate or prosecute any alcohol or drug abuse patient.[facility] HospitalIn the event this information is protected by the Federal Confidentiality of Alcohol and Drug Abuse Patient Records regulations: The Federal rules restrict any use of the information to criminally investigate or prosecute any alcohol or drug abuse patient.[facility] HospitalIn the event this information is protected by the Federal Confidentiality of Alcohol and Drug Abuse Patient Records regulations: The Federal rules restrict any use of the information to criminally investigate or prosecute any alcohol or drug abuse patient.[facility] HospitalIn the event this information is protected by the Federal Confidentiality of Alcohol and Drug Abuse Patient Records regulations: The Federal rules restrict any use of the information to criminally investigate or prosecute any alcohol or drug abuse patient.[facility] HospitalIn the event this information is protected by the Federal Confidentiality of Alcohol and Drug Abuse Patient Records regulations: The Federal rules restrict any use of the information to criminally investigate or prosecute any alcohol or drug abuse patient.[facility] HospitalIn the event this information is protected by the Federal Confidentiality of Alcohol and Drug Abuse Patient Records regulations: The Federal rules restrict any use of the information to criminally investigate or prosecute any alcohol or drug abuse patient.[facility] HospitalIn the event this information is protected by the Federal Confidentiality of Alcohol and Drug Abuse Patient Records regulations: The Federal rules restrict any use of the information to criminally investigate or prosecute any alcohol or drug abuse patient.[facility] HospitalIn the event this information is protected by the Federal Confidentiality of Alcohol and Drug Abuse Patient Records regulations: The Federal rules restrict any use of the information to criminally investigate or prosecute any alcohol or drug abuse patient.[facility] HospitalIn the event this information is protected by the Federal Confidentiality of Alcohol and Drug Abuse Patient Records regulations: The Federal rules restrict any use of the information to criminally investigate or prosecute any alcohol or drug abuse patient.[facility] HospitalIn the event this information is protected by the Federal Confidentiality of Alcohol and Drug Abuse Patient Records regulations: The Federal rules restrict any use of the information to criminally investigate or prosecute any alcohol or drug abuse patient.[facility] HospitalIn the event this information is protected by the Federal Confidentiality of Alcohol and Drug Abuse Patient Records regulations: The Federal rules restrict any use of the information to criminally investigate or prosecute any alcohol or drug abuse patient.[facility] HospitalIn the event this information is protected by the Federal Confidentiality of Alcohol and Drug Abuse Patient Records regulations: The Federal rules restrict any use of the information to criminally investigate or prosecute any alcohol or drug abuse patient.[facility] HospitalIn the event this information is protected by the Federal Confidentiality of Alcohol and Drug Abuse Patient Records regulations: The Federal rules restrict any use of the information to criminally investigate or prosecute any alcohol or drug abuse patient.[facility] HospitalIn the event this information is protected by the Federal Confidentiality of Alcohol and Drug Abuse Patient Records regulations: The Federal rules restrict any use of the information to criminally investigate or prosecute any alcohol or drug abuse patient.[facility]In the event this information is protected by the Federal Confidentiality of Alcohol and Drug Abuse Patient Records regulations: The Federal rules restrict any use of the information to criminally investigate or prosecute any alcohol or drug abuse patient.[facility]In the event this information is protected by the Federal Confidentiality of Alcohol and Drug Abuse Patient Records regulations: The Federal rules restrict any use of the information to criminally investigate or prosecute any alcohol or drug abuse patient.[facility] HospitalIn the event this information is protected by the Federal Confidentiality of Alcohol and Drug Abuse Patient Records regulations: The Federal rules restrict any use of the information to criminally investigate or prosecute any alcohol or drug abuse patient.[facility] HospitalIn the event this information is protected by the Federal Confidentiality of Alcohol and Drug Abuse Patient Records regulations: The Federal rules restrict any use of the information to criminally investigate or prosecute any alcohol or drug abuse patient.[facility] HospitalIn the event this information is protected by the Federal Confidentiality of Alcohol and Drug Abuse Patient Records regulations: The Federal rules restrict any use of the information to criminally investigate or prosecute any alcohol or drug abuse patient.[facility]In the event this information is protected by the Federal Confidentiality of Alcohol and Drug Abuse Patient Records regulations: The Federal rules restrict any use of the information to criminally investigate or prosecute any alcohol or drug abuse patient.[facility]In the event this information is protected by the Federal Confidentiality of Alcohol and Drug Abuse Patient Records regulations: The Federal rules restrict any use of the information to criminally investigate or prosecute any alcohol or drug abuse patient.[facility] HospitalIn the event this information is protected by the Federal Confidentiality of Alcohol and Drug Abuse Patient Records regulations: The Federal rules restrict any use of the information to criminally investigate or prosecute any alcohol or drug abuse patient.[facility] HospitalIn the event this information is protected by the Federal Confidentiality of Alcohol and Drug Abuse Patient Records regulations: The Federal rules restrict any use of the information to criminally investigate or prosecute any alcohol or drug abuse patient.[facility] HospitalIn the event this information is protected by the Federal Confidentiality of Alcohol and Drug Abuse Patient Records regulations: The Federal rules restrict any use of the information to criminally investigate or prosecute any alcohol or drug abuse patient.[facility]In the event this information is protected by the Federal Confidentiality of Alcohol and Drug Abuse Patient Records regulations: The Federal rules restrict any use of the information to criminally investigate or prosecute any alcohol or drug abuse patient.[facility] HospitalIn the event this information is protected by the Federal Confidentiality of Alcohol and Drug Abuse Patient Records regulations: The Federal rules restrict any use of the information to criminally investigate or prosecute any alcohol or drug abuse patient.[facility] HospitalIn the event this information is protected by the Federal Confidentiality of Alcohol and Drug Abuse Patient Records regulations: The Federal rules restrict any use of the information to criminally investigate or prosecute any alcohol or drug abuse patient.[facility]In the event this information is protected by the Federal Confidentiality of Alcohol and Drug Abuse Patient Records regulations: The Federal rules restrict any use of the information to criminally investigate or prosecute any alcohol or drug abuse patient.[facility] HospitalIn the event this information is protected by the Federal Confidentiality of Alcohol and Drug Abuse Patient Records regulations: The Federal rules restrict any use of the information to criminally investigate or prosecute any alcohol or drug abuse patient.[facility] HospitalIn the event this information is protected by the Federal Confidentiality of Alcohol and Drug Abuse Patient Records regulations: The Federal rules restrict any use of the information to criminally investigate or prosecute any alcohol or drug abuse patient.[facility] HospitalIn the event this information is protected by the Federal Confidentiality of Alcohol and Drug Abuse Patient Records regulations: The Federal rules restrict any use of the information to criminally investigate or prosecute any alcohol or drug abuse patient.[facility] HospitalIn the event this information is protected by the Federal Confidentiality of Alcohol and Drug Abuse Patient Records regulations: The Federal rules restrict any use of the information to criminally investigate or prosecute any alcohol or drug abuse patient.[facility] HospitalIn the event this information is protected by the Federal Confidentiality of Alcohol and Drug Abuse Patient Records regulations: The Federal rules restrict any use of the information to criminally investigate or prosecute any alcohol or drug abuse patient.[facility] HospitalIn the event this information is protected by the Federal Confidentiality of Alcohol and Drug Abuse Patient Records regulations: The Federal rules restrict any use of the information to criminally investigate or prosecute any alcohol or drug abuse patient.[facility] HospitalIn the event this information is protected by the Federal Confidentiality of Alcohol and Drug Abuse Patient Records regulations: The Federal rules restrict any use of the information to criminally investigate or prosecute any alcohol or drug abuse patient.[facility] HospitalIn the event this information is protected by the Federal Confidentiality of Alcohol and Drug Abuse Patient Records regulations: The Federal rules restrict any use of the information to criminally investigate or prosecute any alcohol or drug abuse patient.[facility] HospitalIn the event this information is protected by the Federal Confidentiality of Alcohol and Drug Abuse Patient Records regulations: The Federal rules restrict any use of the information to criminally investigate or prosecute any alcohol or drug abuse patient.[facility] HospitalIn the event this information is protected by the Federal Confidentiality of Alcohol and Drug Abuse Patient Records regulations: The Federal rules restrict any use of the information to criminally investigate or prosecute any alcohol or drug abuse patient.[facility] HospitalIn the event this information is protected by the Federal Confidentiality of Alcohol and Drug Abuse Patient Records regulations: The Federal rules restrict any use of the information to criminally investigate or prosecute any alcohol or drug abuse patient.[facility] HospitalIn the event this information is protected by the Federal Confidentiality of Alcohol and Drug Abuse Patient Records regulations: The Federal rules restrict any use of the information to criminally investigate or prosecute any alcohol or drug abuse patient.[facility] HospitalIn the event this information is protected by the Federal Confidentiality of Alcohol and Drug Abuse Patient Records regulations: The Federal rules restrict any use of the information to criminally investigate or prosecute any alcohol or drug abuse patient.[facility] HospitalIn the event this information is protected by the Federal Confidentiality of Alcohol and Drug Abuse Patient Records regulations: The Federal rules restrict any use of the information to criminally investigate or prosecute any alcohol or drug abuse patient.[facility] HospitalIn the event this information is protected by the Federal Confidentiality of Alcohol and Drug Abuse Patient Records regulations: The Federal rules restrict any use of the information to criminally investigate or prosecute any alcohol or drug abuse patient.[facility] HospitalIn the event this information is protected by the Federal Confidentiality of Alcohol and Drug Abuse Patient Records regulations: The Federal rules restrict any use of the information to criminally investigate or prosecute any alcohol or drug abuse patient.[facility] HospitalIn the event this information is protected by the Federal Confidentiality of Alcohol and Drug Abuse Patient Records regulations: The Federal rules restrict any use of the information to criminally investigate or prosecute any alcohol or drug abuse patient.[facility] HospitalIn the event this information is protected by the Federal Confidentiality of Alcohol and Drug Abuse Patient Records regulations: The Federal rules restrict any use of the information to criminally investigate or prosecute any alcohol or drug abuse patient.[facility] HospitalIn the event this information is protected by the Federal Confidentiality of Alcohol and Drug Abuse Patient Records regulations: The Federal rules restrict any use of the information to criminally investigate or prosecute any alcohol or drug abuse patient.[facility] HospitalIn the event this information is protected by the Federal Confidentiality of Alcohol and Drug Abuse Patient Records regulations: The Federal rules restrict any use of the information to criminally investigate or prosecute any alcohol or drug abuse patient.[facility] HospitalIn the event this information is protected by the Federal Confidentiality of Alcohol and Drug Abuse Patient Records regulations: The Federal rules restrict any use of the information to criminally investigate or prosecute any alcohol or drug abuse patient.[facility] HospitalIn the event this information is protected by the Federal Confidentiality of Alcohol and Drug Abuse Patient Records regulations: The Federal rules restrict any use of the information to criminally investigate or prosecute any alcohol or drug abuse patient.[facility] HospitalIn the event this information is protected by the Federal Confidentiality of Alcohol and Drug Abuse Patient Records regulations: The Federal rules restrict any use of the information to criminally investigate or prosecute any alcohol or drug abuse patient.[facility] HospitalIn the event this information is protected by the Federal Confidentiality of Alcohol and Drug Abuse Patient Records regulations: The Federal rules restrict any use of the information to criminally investigate or prosecute any alcohol or drug abuse patient.[facility] HospitalIn the event this information is protected by the Federal Confidentiality of Alcohol and Drug Abuse Patient Records regulations: The Federal rules restrict any use of the information to criminally investigate or prosecute any alcohol or drug abuse patient.[facility] HospitalIn the event this information is protected by the Federal Confidentiality of Alcohol and Drug Abuse Patient Records regulations: The Federal rules restrict any use of the information to criminally investigate or prosecute any alcohol or drug abuse patient.[facility] HospitalIn the event this information is protected by the Federal Confidentiality of Alcohol and Drug Abuse Patient Records regulations: The Federal rules restrict any use of the information to criminally investigate or prosecute any alcohol or drug abuse patient.[facility] HospitalIn the event this information is protected by the Federal Confidentiality of Alcohol and Drug Abuse Patient Records regulations: The Federal rules restrict any use of the information to criminally investigate or prosecute any alcohol or drug abuse patient.[facility] HospitalIn the event this information is protected by the Federal Confidentiality of Alcohol and Drug Abuse Patient Records regulations: The Federal rules restrict any use of the information to criminally investigate or prosecute any alcohol or drug abuse patient.[facility] HospitalIn the event this information is protected by the Federal Confidentiality of Alcohol and Drug Abuse Patient Records regulations: The Federal rules restrict any use of the information to criminally investigate or prosecute any alcohol or drug abuse patient.[facility] HospitalIn the event this information is protected by the Federal Confidentiality of Alcohol and Drug Abuse Patient Records regulations: The Federal rules restrict any use of the information to criminally investigate or prosecute any alcohol or drug abuse patient.[facility] HospitalIn the event this information is protected by the Federal Confidentiality of Alcohol and Drug Abuse Patient Records regulations: The Federal rules restrict any use of the information to criminally investigate or prosecute any alcohol or drug abuse patient.[facility] HospitalIn the event this information is protected by the Federal Confidentiality of Alcohol and Drug Abuse Patient Records regulations: The Federal rules restrict any use of the information to criminally investigate or prosecute any alcohol or drug abuse patient.[facility] HospitalIn the event this information is protected by the Federal Confidentiality of Alcohol and Drug Abuse Patient Records regulations: The Federal rules restrict any use of the information to criminally investigate or prosecute any alcohol or drug abuse patient.[facility] HospitalIn the event this information is protected by the Federal Confidentiality of Alcohol and Drug Abuse Patient Records regulations: The Federal rules restrict any use of the information to criminally investigate or prosecute any alcohol or drug abuse patient.[facility] HospitalIn the event this information is protected by the Federal Confidentiality of Alcohol and Drug Abuse Patient Records regulations: The Federal rules restrict any use of the information to criminally investigate or prosecute any alcohol or drug abuse patient.[facility] HospitalIn the event this information is protected by the Federal Confidentiality of Alcohol and Drug Abuse Patient Records regulations: The Federal rules restrict any use of the information to criminally investigate or prosecute any alcohol or drug abuse patient.[facility] HospitalIn the event this information is protected by the Federal Confidentiality of Alcohol and Drug Abuse Patient Records regulations: The Federal rules restrict any use of the information to criminally investigate or prosecute any alcohol or drug abuse patient.[facility] HospitalIn the event this information is protected by the Federal Confidentiality of Alcohol and Drug Abuse Patient Records regulations: The Federal rules restrict any use of the information to criminally investigate or prosecute any alcohol or drug abuse patient.[facility] HospitalIn the event this information is protected by the Federal Confidentiality of Alcohol and Drug Abuse Patient Records regulations: The Federal rules restrict any use of the information to criminally investigate or prosecute any alcohol or drug abuse patient.[facility] HospitalIn the event this information is protected by the Federal Confidentiality of Alcohol and Drug Abuse Patient Records regulations: The Federal rules restrict any use of the information to criminally investigate or prosecute any alcohol or drug abuse patient.[facility] HospitalIn the event this information is protected by the Federal Confidentiality of Alcohol and Drug Abuse Patient Records regulations: The Federal rules restrict any use of the information to criminally investigate or prosecute any alcohol or drug abuse patient.[facility] HospitalIn the event this information is protected by the Federal Confidentiality of Alcohol and Drug Abuse Patient Records regulations: The Federal rules restrict any use of the information to criminally investigate or prosecute any alcohol or drug abuse patient.[facility] HospitalIn the event this information is protected by the Federal Confidentiality of Alcohol and Drug Abuse Patient Records regulations: The Federal rules restrict any use of the information to criminally investigate or prosecute any alcohol or drug abuse patient.[facility] HospitalIn the event this information is protected by the Federal Confidentiality of Alcohol and Drug Abuse Patient Records regulations: The Federal rules restrict any use of the information to criminally investigate or prosecute any alcohol or drug abuse patient.[facility] HospitalIn the event this information is protected by the Federal Confidentiality of Alcohol and Drug Abuse Patient Records regulations: The Federal rules restrict any use of the information to criminally investigate or prosecute any alcohol or drug abuse patient.[facility] HospitalIn the event this information is protected by the Federal Confidentiality of Alcohol and Drug Abuse Patient Records regulations: The Federal rules restrict any use of the information to criminally investigate or prosecute any alcohol or drug abuse patient.[facility] HospitalIn the event this information is protected by the Federal Confidentiality of Alcohol and Drug Abuse Patient Records regulations: The Federal rules restrict any use of the information to criminally investigate or prosecute any alcohol or drug abuse patient.[facility] HospitalIn the event this information is protected by the Federal Confidentiality of Alcohol and Drug Abuse Patient Records regulations: The Federal rules restrict any use of the information to criminally investigate or prosecute any alcohol or drug abuse patient.[facility] Ordered Prescriptions (unrec ognized section and [...] BE BASED ON THE PRIMARY CLINICAL RECORDS. [employer] provides no warranty or guarantee of the accuracy or completeness of information in this document.
== END 2023-11-20 18:31 | disposition home or self-care (01) ==
PROVIDERS: Physician Assistant; Emergency Provider Emergency Medicine; PCP Family Medicine
DX: R10.9 Unspecified abdominal pain (principal); R11.0 Nausea; K59.09 Other constipation; G89.29 Other chronic pain; Z93.1 Gastrostomy status
CPT/HCPCS: 36415; 80053; 81003; 85025; 87070; 87075; 96372; 99285; J2250; Q0162

== ENCOUNTER 2023-11-25 13:18 | Outpatient (REF) | payer OTHER, SELFPAY ==
[2023-11-25 14:24] LABS: Basophils Percent Auto 0.4 % (0.2-2.0); Eosinophils Percent Auto 0.4 % (0.9-7.0); Hematocrit 32.3 % (36.0-48.0); Hemoglobin 9.9 g/dL (12.0-16.0); Immature Granulocytes Abs Auto 0.01 10^3/uL (0.00-0.03); Immature Granulocytes Pct Auto 0.2 % (0.0-0.5); Lymphocytes Absolute Auto 0.8 10^3/uL (1.2-3.8); Lymphocytes Percent Auto 14.3 % (20.5-60.0); Mean Corpuscular HGB Conc 30.7 g/dL (29.9-35.2); Mean Corpuscular Hemoglobin 26.3 pg (26.7-34.0); Mean Corpuscular Volume 85.9 fL (81.0-99.0); Mean Platelet Volume 11.9 fL (9.5-13.5); Monocytes Absolute Auto 0.2 10^3/uL (0.3-0.8); Monocytes Percent Auto 3.1 % (1.7-12.0); Neutrophils Absolute Auto 4.5 10^3/uL (1.4-6.5); Neutrophils Percent Auto 81.6 % (43.0-75.0); Platelet Count 260 10^3/uL (150-450); Red Blood Count 3.76 10^6/uL (4.20-5.40); Red Cell Distribution Width 17.2 % (11.0-15.0); White Blood Count 5.5 10^3/uL (4.0-11.0)
[2023-11-25 14:30] LABS: Alanine Aminotransferase 35 U/L (14-59); Albumin Globulin Ratio 1.1; Albumin Level 3.2 g/dL (3.4-5.0); Alkaline Phosphatase 70 U/L (46-116); Anion Gap 12.4; Aspartate Amino Transferase 35 U/L (15-37); Bilirubin Total 0.2 mg/dL (0.2-1.0); Calcium 7.9 mg/dL (8.5-10.1); Carbon Dioxide 24.5 mmol/L (21.0-32.0); Chloride 106 mmol/L (98-107); Estimated GFR (African America >60 (>=60 mL/min/1.73m^2); Estimated GFR (Non-African Ame >60 (>=60 mL/min/1.73m^2); Globulin 2.9 g/dL; Glucose 79 mg/dL (74-106); Magnesium 1.9 mg/dL (1.8-2.4); Phosphorus 2.4 mg/dL (2.6-4.7); Potassium 3.9 mmol/L (3.5-5.1); Sodium 139 mmol/L (136-145); Total Protein 6.1 g/dL (6.4-8.2)
== END 2023-11-25 13:19 | disposition home or self-care (01) ==
LOC: LAB 13:18
PROVIDERS: PCP Family Medicine; Visit Provider Internal Medicine Gastroenterology
DX: E44.0 Moderate protein-calorie malnutrition (principal); R11.2 Nausea with vomiting, unspecified
CPT/HCPCS: 36415; 80053; 83735; 84100; 85025

== ENCOUNTER 2023-11-25 13:50 | Outpatient (REF) | payer OTHER, SELFPAY ==
[2023-11-25 15:12] LABS: Free T3 2.07 pg/mL (2.18-3.98); Thyroid Stimulating Hormone 1.315 uIU/mL (0.358-3.740)
[2023-11-26 08:12] LABS: FSH 3.4 mIU/mL (.); Progesterone <0.1 ng/mL (.); Prolactin 8.4 ng/mL (4.8-33.4); Testosterone <3 ng/dL (8-60)
== END 2023-11-25 13:51 | disposition home or self-care (01) ==
LOC: LAB 13:50
PROVIDERS: PCP Family Medicine; Visit Provider Family Medicine
DX: E44.0 Moderate protein-calorie malnutrition (principal); R11.2 Nausea with vomiting, unspecified; N95.1 Menopausal and female climacteric states; E27.8 Other specified disorders of adrenal gland; E03.9 Hypothyroidism, unspecified
CPT/HCPCS: 36415; 80053; 82670; 83001; 83735; 84100; 84144; 84146; 84403; 84436; 84443; 84481; 85025

== ENCOUNTER 2023-12-16 12:12 | Outpatient (REF) | payer OTHER, SELFPAY ==
[2023-12-23 01:07] LABS: Free Testosterone(Direct) <0.2 pg/mL (0.0-4.2); Testosterone <3 ng/dL (8-60)
== END 2023-12-16 12:13 | disposition home or self-care (01) ==
LOC: LAB 12:12
PROVIDERS: PCP Family Medicine; Visit Provider Family Medicine
DX: E43 Unspecified severe protein-calorie malnutrition (principal); R79.89 Other specified abnormal findings of blood chemistry; R87.1 Abnormal level of hormones in specimens from female genital organs
CPT/HCPCS: 36415; 84402; 84403

== ENCOUNTER 2023-12-22 10:07 | Outpatient (REF) | payer OTHER, SELFPAY ==
[2023-12-22 11:28] LABS: Basophils Percent Auto 0.8 % (0.2-2.0); Eosinophils Percent Auto 0.8 % (0.9-7.0); Hematocrit 40.5 % (36.0-48.0); Hemoglobin 12.8 g/dL (12.0-16.0); Immature Granulocytes Abs Auto 0.01 10^3/uL (0.00-0.03); Immature Granulocytes Pct Auto 0.2 % (0.0-0.5); Lymphocytes Absolute Auto 0.8 10^3/uL (1.2-3.8); Lymphocytes Percent Auto 16.8 % (20.5-60.0); Mean Corpuscular HGB Conc 31.6 g/dL (29.9-35.2); Mean Corpuscular Volume 91.8 fL (81.0-99.0); Mean Platelet Volume 11.7 fL (9.5-13.5); Monocytes Absolute Auto 0.2 10^3/uL (0.3-0.8); Monocytes Percent Auto 4.3 % (1.7-12.0); Neutrophils Absolute Auto 3.8 10^3/uL (1.4-6.5); Neutrophils Percent Auto 77.1 % (43.0-75.0); Platelet Count 249 10^3/uL (150-450); Red Blood Count 4.41 10^6/uL (4.20-5.40); Red Cell Distribution Width 19.3 % (11.0-15.0); White Blood Count 4.9 10^3/uL (4.0-11.0)
[2023-12-22 11:38] LABS: Alanine Aminotransferase 40 U/L (14-59); Albumin Globulin Ratio 1.2; Albumin Level 3.6 g/dL (3.4-5.0); Alkaline Phosphatase 74 U/L (46-116); Anion Gap 12.5; Aspartate Amino Transferase 40 U/L (15-37); BUN Creatinine Ratio 8.9; Bilirubin Total 0.3 mg/dL (0.2-1.0); Carbon Dioxide 25.7 mmol/L (21.0-32.0); Chloride 108 mmol/L (98-107); Estimated GFR (African America >60 (>=60 mL/min/1.73m^2); Estimated GFR (Non-African Ame >60 (>=60 mL/min/1.73m^2); Globulin 3.1 g/dL; Glucose 71 mg/dL (74-106); Potassium 4.2 mmol/L (3.5-5.1); Sodium 142 mmol/L (136-145); Total Protein 6.7 g/dL (6.4-8.2)
[2023-12-22 11:46] LABS: Estimated Average Glucose 91 mg/dL; Glycohemoglobin A1C 4.8 % (4.5-6.2)
== END 2023-12-22 10:08 | disposition home or self-care (01) ==
LOC: LAB 10:07
PROVIDERS: PCP Family Medicine; Visit Provider Internal Medicine Gastroenterology
DX: E44.0 Moderate protein-calorie malnutrition (principal); R11.2 Nausea with vomiting, unspecified
CPT/HCPCS: 36415; 80053; 82542; 83036; 83735; 84100; 85025

== ENCOUNTER 2024-01-06 10:48 | Outpatient (REF) | payer OTHER, SELFPAY ==
[2024-01-06 11:47] LABS: Basophils Percent Auto 0.5 % (0.2-2.0); Eosinophils Percent Auto 0.2 % (0.9-7.0); Hematocrit 34.5 % (36.0-48.0); Hemoglobin 11.3 g/dL (12.0-16.0); Immature Granulocytes Abs Auto 0.01 10^3/uL (0.00-0.03); Immature Granulocytes Pct Auto 0.2 % (0.0-0.5); Mean Corpuscular HGB Conc 32.8 g/dL (29.9-35.2); Mean Corpuscular Hemoglobin 29.7 pg (26.7-34.0); Mean Corpuscular Volume 90.6 fL (81.0-99.0); Mean Platelet Volume 11.2 fL (9.5-13.5); Monocytes Absolute Auto 0.2 10^3/uL (0.3-0.8); Monocytes Percent Auto 3.2 % (1.7-12.0); Neutrophils Absolute Auto 4.3 10^3/uL (1.4-6.5); Neutrophils Percent Auto 77.9 % (43.0-75.0); Platelet Count 217 10^3/uL (150-450); Red Blood Count 3.81 10^6/uL (4.20-5.40); Red Cell Distribution Width 17.4 % (11.0-15.0); White Blood Count 5.6 10^3/uL (4.0-11.0)
[2024-01-06 12:12] LABS: Alanine Aminotransferase 27 U/L (14-59); Albumin Globulin Ratio 1.2; Albumin Level 3.4 g/dL (3.4-5.0); Alkaline Phosphatase 68 U/L (46-116); Anion Gap 15.5; Aspartate Amino Transferase 28 U/L (15-37); BUN Creatinine Ratio 8.1; Bilirubin Total 0.3 mg/dL (0.2-1.0); Calcium 8.5 mg/dL (8.5-10.1); Carbon Dioxide 21.1 mmol/L (21.0-32.0); Chloride 107 mmol/L (98-107); Estimated GFR (African America >60 (>=60 mL/min/1.73m^2); Estimated GFR (Non-African Ame >60 (>=60 mL/min/1.73m^2); Globulin 2.9 g/dL; Glucose 113 mg/dL (74-106); Magnesium 1.7 mg/dL (1.8-2.4); Phosphorus 3.3 mg/dL (2.6-4.7); Potassium 3.6 mmol/L (3.5-5.1); Sodium 140 mmol/L (136-145); Total Protein 6.3 g/dL (6.4-8.2)
== END 2024-01-06 10:49 | disposition home or self-care (01) ==
LOC: LAB 10:48
PROVIDERS: PCP Family Medicine; Visit Provider Internal Medicine Gastroenterology
DX: E44.0 Moderate protein-calorie malnutrition (principal); R11.2 Nausea with vomiting, unspecified
CPT/HCPCS: 36415; 80053; 83735; 84100; 85025

== ENCOUNTER 2024-01-10 09:51 | Outpatient (OUT) | payer OTHER, SELFPAY ==
--- NOTE | 2024-01-10 10:01 | XR_ITS ---
The [address] [address] Patient Name: JUAN KONG MRN: [id number] date: 1990 Sex: F Assigned Patient Location: LAB Current Patient Location: Accession/Order Number: [id number] Exam Date: 01/10/2024 10:06 Report Date: 01/12/2024 14:45 At the request of: BRITT CALIX Procedure: XR acute abdomen series EXAMINATION: XR acute abdomen series HISTORY: Gastroesophageal Reflux Disease COMPARISON: XR chest 06/24/2023, 08/15/2023 FINDINGS: LUNGS: No infiltrate, pneumothorax, or pleural effusion. MEDIASTINUM: No abnormal widening. BOWEL GAS PATTERN: A few air-filled loops of small bowel without suspicious dilation. No suspicious fluid levels. Surgical clips within right upper quadrant. FREE AIR: None. CALCIFICATIONS: None significant. BONES: No fracture or visible bone lesion. OTHER: Right jugular central venous catheter. XR/XR acute abdomen series IMPRESSION: 1. No acute cardiopulmonary process. 2. No bowel obstruction or convincing ileus. Electronically authenticated by: ALVERTO PHAM Date: 01/12/2024 14:45
[2024-01-11 04:07] LABS: Testosterone <3 ng/dL (8-60)
== END 2024-01-10 09:52 | disposition home or self-care (01) ==
PROVIDERS: PCP Family Medicine; Visit Provider Family Medicine
DX: K21.9 Gastro-esophageal reflux disease without esophagitis (principal); K91.1 Postgastric surgery syndromes; R53.83 Other fatigue; R87.1 Abnormal level of hormones in specimens from female genital organs
CPT/HCPCS: 36415; 74022; 84403

== ENCOUNTER 2024-01-17 11:55 | Emergency (ER) | payer OTHER, SELFPAY ==
[2024-01-17 12:05] VITALS: BP 130/73; PULSE 73; TEMP 37.2; O2SAT 100; BMI 30.7
--- NOTE | 2024-01-17 12:24 | XR_ITS ---
The [address] [address] Patient Name: JUAN KONG MRN: [id number] date: 1990 Sex: F Assigned Patient Location: ER Current Patient Location: ER Accession/Order Number: [id number] Exam Date: 01/17/2024 12:55 Report Date: 01/17/2024 13:26 At the request of: LESLIE TERRAZAS Procedure: XR abdomen 1V EXAMINATION: XR abdomen 1V HISTORY: evaluate j tube COMPARISON: No relevant comparison available. FINDINGS: BOWEL GAS PATTERN: Gastroview was injected by the technologist through the J-tube. Contrast is present within the bowel lumen; no appreciable extravasation. CALCIFICATIONS: None significant. OTHER: Negative. No abnormal gaseous collections. XR/XR abdomen 1V IMPRESSION: 1. Patent jejunostomy tube without evidence of extravasation. Electronically authenticated by: ALVERTO PHAM Date: 01/17/2024 13:26
--- NOTE | 2024-01-17 12:26 | ED.GENADUL1 ---
HPI HPI - General Adult General Chief complaint: Abdominal Pain Stated complaint: J tube blocked Time Seen by Provider: 01/17/24 12:19 Source: patient Mode of arrival: walk-in Limitations: no limitations History of Present Illness HPI narrative: 33-year-old female presents for evaluation of her J-tube. She states it hurts when she injects into it and she is concerned it might be out of place. She has had this since May but just recently started up with tube feeds again and the pump is giving her feedback that it is blocked. Related Data Home Medications ?Medication ?Instructions ?Recorded ?Confirmed hydroxyzine HCl 25 mg tablet 25 mg PO BID PRN anxiety 09/17/22 09/23/23 liothyronine 5 mcg tablet 5 mcg PO QDAY 09/17/22 09/23/23 topiramate 100 mg tablet 100 mg PO BID 09/17/22 09/23/23 buspirone 10 mg tablet 10 mg PO TID 06/14/23 09/23/23 linaclotide 290 mcg capsule 290 mcg PO DAILY 06/14/23 09/23/23 (Linzess) methocarbamol 750 mg tablet 750 mg PO TID 06/14/23 09/23/23 metoclopramide HCl 10 mg tablet 10 mg PO AC 06/14/23 09/23/23 albuterol sulfate 90 mcg/actuation 2 puff inhalation Q6H PRN 06/15/23 09/23/23 aerosol inhaler shortness of breath or wheezing escitalopram oxalate 20 mg tablet 20 mg PO DAILY 06/15/23 09/23/23 levothyroxine 75 mcg tablet 75 mcg PO .ACB 06/15/23 09/23/23 mirtazapine 30 mg tablet 30 mg PO .HS 06/15/23 09/23/23 pantoprazole 40 mg tablet,delayed 40 mg PO DAILY 06/15/23 09/23/23 release acetaminophen 325 mg tablet (Pain 650 mg PO Q4H PRN pain 06/24/23 08/15/23 Relief (acetaminophen)) prednisone 10 mg tablet 15 mg PO DAILY 09/23/23 09/23/23 Previous Rx's ?Medication ?Instructions ?Recorded Nutrin 45 ml feeding tube Q1H #3,000 mL 06/16/23 prochlorperazine maleate 10 mg 10 mg PO Q6H PRN nausea and 06/16/23 tablet (Compazine) vomiting #60 tabs tramadol 50 mg tablet 50 mg PO Q6H PRN pain #28 tabs 06/16/23 ondansetron 4 mg disintegrating 4 mg PO Q6H PRN nausea and 07/08/23 tablet vomiting #20 tabs mupirocin calcium 2 % topical cream 1 applic topical BID #15 grams 11/07/23 promethazine 25 mg tablet 25 mg PO QID PRN nausea and 11/20/23 vomiting #10 tabs Allergies Allergy/AdvReac Type Severity Reaction Status Date / Time adhesive Allergy Rash Verified 08/15/23 13:11 codeine Allergy Vomiting Verified 08/15/23 13:11 NSAIDS (Non-Steroidal Allergy intolerance Verified 08/15/23 13:11 Anti-Inflamma Opioid HPI Opioid Management Most Recent Opioid Data: Last Pain Scale 8 01/17/24 12:46 01/17/24 Last ORT Total Score 2 08/15/23 16:20 08/15/23 Last ORT Risk Category Low Risk 08/15/23 16:20 08/15/23 Review of Systems ROS Narrative A ten point review of systems is negative except as noted above. [facility] Medical History (Updated 01/17/24 @ 13:34 by Reji Damon MD) Nausea and vomiting ?R11.2 - Nausea with vomiting, unspecified (ICD-10) Flank pain ?R10.9 - Unspecified abdominal pain (ICD-10) Abdominal pain ?R10.9 - Unspecified abdominal pain (ICD-10) Acute abdomen ?R10.0 - Acute abdomen (ICD-10) Intractable nausea and vomiting ?R11.2 - Nausea with vomiting, unspecified (ICD-10) Intractable abdominal pain ?R10.9 - Unspecified abdominal pain (ICD-10) Depression ?F32.A - Depression, unspecified (ICD-10) Asthma ?J45.909 - Unspecified asthma, uncomplicated (ICD-10) Dyspareunia Pelvic pain ?R10.2 - Pelvic and perineal pain (ICD-10) Ovarian cyst ?N83.209 - Unspecified ovarian cyst, unspecified side (ICD-10) PONV (postoperative nausea and vomiting) ?R11.2 - Nausea with vomiting, unspecified (ICD-10) ?Z98.890 - Other specified postprocedural states (ICD-10) PCOS (polycystic ovarian syndrome) ?E28.2 - Polycystic ovarian syndrome (ICD-10) Hypothyroidism (acquired) ?E03.9 - Hypothyroidism, unspecified (ICD-10) Anxiety ?F41.9 - Anxiety disorder, unspecified (ICD-10) GERD (gastroesophageal reflux disease) ?K21.9 - Gastro-esophageal reflux disease without esophagitis (ICD-10) Sleep apnea ?G47.30 - Sleep apnea, unspecified (ICD-10) Anemia ?D64.9 - Anemia, unspecified (ICD-10) Fibromyalgia ?M79.7 - Fibromyalgia (ICD-10) Syncope (07/07/13) ?R55 - Syncope and collapse (ICD-10) Shingles ?B02.9 - Zoster without complications (ICD-10) Headache ?R51.9 - Headache, unspecified (ICD-10) Migraine ?G43.909 - Migraine, unspecified, not intractable, without status migrainosus (ICD-10) Mechanical ileus (01/31/20) ?K56.609 - Unspecified intestinal obstruction, unspecified as to partial versus complete obstruction (ICD-10) COVID-19 (~02/2020) ?U07.1 - COVID-19 (ICD-10) Kidney stones ?N20.0 - Calculus of kidney (ICD-10) Surgical History (Updated 06/14/23 @ 16:55 by Marsha Du) S/P percutaneous endoscopic gastrostomy (PEG) tube placement ?Z93.1 - Gastrostomy status (ICD-10) 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 - Celiac artery compression syndrome (ICD-10) H/O shoulder surgery (2022) ?Z98.890 - Other specified postprocedural states (ICD-10) History of hip surgery ?Z98.890 - Other specified postprocedural states (ICD-10) S/P right knee arthroscopy ?Z98.890 - Other specified postprocedural states (ICD-10) S/P left knee arthroscopy ?Z98.890 - Other specified postprocedural states (ICD-10) Hx of tonsillectomy ?Z90.89 - Acquired absence of other organs (ICD-10) History of thoracic surgery (~2021) ?Z98.890 - Other specified postprocedural states (ICD-10) History of esophagogastroduodenoscopy (EGD) (10/04/13) ?Z98.890 - Other specified postprocedural states (ICD-10) History of cholecystectomy (10/06/13) ?Z90.49 - Acquired absence of other specified parts of digestive tract (ICD-10) Delivery by section (~2016) Delivery by section (01/17/18) H/O colonoscopy (~2018) ?Z98.890 - Other specified postprocedural states (ICD-10) S/P right knee arthroscopy (07/21/18) ?Z98.890 - Other specified postprocedural states (ICD-10) Delivery by section (06/19/19) History of appendectomy (09/25/19) ?Z90.49 - Acquired absence of other specified parts of digestive tract (ICD-10) H/O laparoscopy (11/10/19) ?Z98.890 - Other specified postprocedural states (ICD-10) History of liver biopsy (~04/2020) ?Z98.890 - Other specified postprocedural states (ICD-10) H/O laparoscopy (07/18/20) ?Z98.890 - Other specified postprocedural states (ICD-10) H/O arthroscopy of right knee (08/07/20) ?Z98.890 - Other specified postprocedural states (ICD-10) S/P laparoscopic sleeve gastrectomy (09/03/20) ?Z98.84 - Bariatric surgery status (ICD-10) H/O: hysterectomy (11/12/20) ?Z90.710 - Acquired absence of both cervix and uterus (ICD-10) History of hernia repair (03/20/21) ?Z98.890 - Other specified postprocedural states (ICD-10) ?Z87.19 - Personal history of other diseases of the digestive system (ICD-10) Family History (Updated 06/14/23 @ 16:56 by Marsha Du) Other Family history of cancer Family history of diabetes mellitus Family history of hypertension Family history of myocardial infarction PONV (postoperative nausea and vomiting) Social History (Updated 06/14/23 @ 16:57 by Marsha Du) Within the past year, how often did you have a drink containing alcohol: never Score interpretation: A score less than 3 is consistent with normal alcohol consumption. Smoking status: Never smoker Non-prescribed substance use: denies use Highest level of school completed/degree received: Master's degree Are you now , , , , never or living with a partner: In a typical week, how many times do you talk on the telephone with family, friends, or neighbors: 3 or more times per week How often do you get together with friends or relatives: twice per week How often do you attend worship or religion services: 4 or more times per year Do you belong to any clubs or organizations such as worship groups unions, fraternal or athletic groups, or school groups: no Total score: 3 Score interpretation: A score of greater than or equal to 2 indicates the lowest level of social isolation. Little interest or pleasure in doing things: not at all Feeling down, depressed, or hopeless: not at all Feel stressed/tense/nervous/anxious/difficulty sleeping: to some extent Do you think of yourself as: straight/heterosexual Gender Identity: female Exam Narrative Exam Narrative: Nurses note and vital signs reviewed and patient is not hypoxic. General: The patient appears in no apparent distress. Patient is resting comfortably on cart. Skin: Warm, dry, no pallor noted. There is no rash noted. Head: Normocephalic, atraumatic Eye: Normal conjunctiva, no drainage Ears, Nose, Mouth, and Throat: oral mucosa is moist. Nares patent. Cardiovascular: Regular Rate and Rhythm Respiratory: Patient is in no distress, no accessory muscle use, lungs are clear to auscultation, no wheezing, rales or rhonchi GI: Soft and nondistended. Feeding tube in place. No surrounding erythema and no drainage Musculoskeletal: The patient has no evidence of calf tenderness, no pitting edema, symmetrical pulses noted bilaterally Neurological: A&O, normal speech Psychiatric: Cooperative Constitutional Vital Signs, click to edit/add: Last Vital Signs Temp 98.9 F 01/17/24 12:05 Pulse 73 01/17/24 12:05 Resp 18 01/17/24 12:05 BP 130/73 01/17/24 12:05 Pulse Ox 100 01/17/24 12:05 O2 Del Method Room Air 01/17/24 12:05 Course Vital Signs Vital signs: Vital Signs Temperature 98.9 F 01/17/24 12:05 Pulse Rate 73 01/17/24 12:05 Respiratory Rate 18 01/17/24 12:05 Blood Pressure 130/73 01/17/24 12:05 Pulse Oximetry 100 01/17/24 12:05 Oxygen Delivery Method Room Air 01/17/24 12:05 Temperature 98.9 F 01/17/24 12:05 Pulse Rate 73 01/17/24 12:05 Respiratory Rate 18 01/17/24 12:05 Blood Pressure 130/73 01/17/24 12:05 Pulse Oximetry 100 01/17/24 12:05 Oxygen Delivery Method Room Air 01/17/24 12:05 Medical Decision Making MDM Narrative Medical decision making narrative: Gastrografin x-ray shows appropriate placement and function of the feeding tube. She was instructed to have follow-up with the surgeon in [place] who placed it. Treatment diagnosis and follow-up were discussed with the patient. Differential Diagnosis Differential Diagnosis: Feeding tube dysfunction Imaging Data Abdominal x-ray: Radiologist's impression: ITS Impressions Abdomen X-Ray 01/17/24 12:24 IMPRESSION: 1. Patent jejunostomy tube without evidence of extravasation. Electronically authenticated by: ALVERTO PHAM Date: 01/17/2024 13:26 Discharge Plan Discharge Chief Complaint: Abdominal Pain Clinical Impression: Feeding by G-tube Patient Disposition: Home, Self-Care Time of Disposition Decision: 13:33 Condition: Good Mode of Transportation: Private Vehicle Prescriptions / Home Meds: No Action hydroxyzine HCl 25 mg tablet 25 mg PO BID PRN (Reason: anxiety) liothyronine 5 mcg tablet 5 mcg PO QDAY topiramate 100 mg tablet 100 mg PO BID buspirone 10 mg tablet 10 mg PO TID methocarbamol 750 mg tablet 750 mg PO TID metoclopramide HCl 10 mg tablet 10 mg PO AC Linzess 290 mcg capsule 290 mcg PO DAILY albuterol sulfate 90 mcg/actuation HFA aerosol inhaler 2 puff INHALATION Q6H PRN (Reason: shortness of breath or wheezing) levothyroxine 75 mcg tablet 75 mcg PO .ACB escitalopram oxalate 20 mg tablet 20 mg PO DAILY mirtazapine 30 mg tablet 30 mg PO .HS pantoprazole 40 mg tablet,delayed release (DR/EC) 40 mg PO DAILY Nutrin 45 ml feeding tube Q1H Qty: 3000 11RF prochlorperazine maleate [Compazine] 10 mg tablet 10 mg PO Q6H PRN (Reason: nausea and vomiting) Qty: 60 3RF tramadol 50 mg tablet 50 mg PO Q6H PRN (Reason: pain) Qty: 28 0RF acetaminophen [Pain Relief (acetaminophen)] 325 mg tablet 650 mg PO Q4H PRN (Reason: pain) ondansetron 4 mg tablet,disintegrating 4 mg PO Q6H PRN (Reason: nausea and vomiting) Qty: 20 0RF prednisone 10 mg tablet 15 mg PO DAILY mupirocin calcium 2 % cream 1 applic topical BID Qty: 15 0RF promethazine 25 mg tablet 25 mg PO QID PRN (Reason: nausea and vomiting) Qty: 10 0RF Print Language: Danish Instructions: How to Use and Care for Your PEG Tube (DC) Additional Instructions: Follow-up with the surgeon in [place]. Referrals: Thomas Alas MD [Primary Care Provider] - 1 week
== END 2024-01-17 14:07 | disposition home or self-care (01) ==
PROVIDERS: Emergency Provider Emergency Medicine; PCP Family Medicine
DX: Z43.4 Encounter for attention to other artificial openings of digestive tract (principal); R10.9 Unspecified abdominal pain; Z90.49 Acquired absence of other specified parts of digestive tract; Z98.84 Bariatric surgery status; Z90.710 Acquired absence of both cervix and uterus
CPT/HCPCS: 74018; 99283; Q9963

== ENCOUNTER 2024-01-20 12:35 | Outpatient (REF) | payer OTHER, SELFPAY ==
[2024-01-20 13:23] LABS: Basophils Percent Auto 0.4 % (0.2-2.0); Eosinophils Percent Auto 0.4 % (0.9-7.0); Hematocrit 36.7 % (36.0-48.0); Hemoglobin 12.4 g/dL (12.0-16.0); Immature Granulocytes Abs Auto 0.01 10^3/uL (0.00-0.03); Immature Granulocytes Pct Auto 0.2 % (0.0-0.5); Lymphocytes Absolute Auto 0.8 10^3/uL (1.2-3.8); Lymphocytes Percent Auto 14.6 % (20.5-60.0); Mean Corpuscular HGB Conc 33.8 g/dL (29.9-35.2); Mean Corpuscular Hemoglobin 30.8 pg (26.7-34.0); Mean Corpuscular Volume 91.3 fL (81.0-99.0); Mean Platelet Volume 11.2 fL (9.5-13.5); Monocytes Absolute Auto 0.2 10^3/uL (0.3-0.8); Monocytes Percent Auto 2.8 % (1.7-12.0); Neutrophils Absolute Auto 4.7 10^3/uL (1.4-6.5); Neutrophils Percent Auto 81.6 % (43.0-75.0); Platelet Count 234 10^3/uL (150-450); Red Blood Count 4.02 10^6/uL (4.20-5.40); Red Cell Distribution Width 16.7 % (11.0-15.0); White Blood Count 5.7 10^3/uL (4.0-11.0)
[2024-01-20 14:24] LABS: Alanine Aminotransferase 38 U/L (14-59); Albumin Globulin Ratio 1.3; Albumin Level 3.6 g/dL (3.4-5.0); Alkaline Phosphatase 74 U/L (46-116); Anion Gap 15.1; Aspartate Amino Transferase 33 U/L (15-37); BUN Creatinine Ratio 8.2; Bilirubin Total 0.3 mg/dL (0.2-1.0); Calcium 8.4 mg/dL (8.5-10.1); Carbon Dioxide 25.9 mmol/L (21.0-32.0); Chloride 106 mmol/L (98-107); Estimated GFR (African America >60 (>=60 mL/min/1.73m^2); Estimated GFR (Non-African Ame >60 (>=60 mL/min/1.73m^2); Globulin 2.7 g/dL; Glucose 68 mg/dL (74-106); Magnesium 1.7 mg/dL (1.8-2.4); Phosphorus 3.5 mg/dL (2.6-4.7); Sodium 143 mmol/L (136-145); Total Protein 6.3 g/dL (6.4-8.2)
== END 2024-01-20 12:36 | disposition home or self-care (01) ==
LOC: LAB 12:35
PROVIDERS: PCP Family Medicine; Visit Provider Internal Medicine Gastroenterology
DX: E43 Unspecified severe protein-calorie malnutrition (principal)
CPT/HCPCS: 36415; 80053; 83735; 84100; 85025

== ENCOUNTER 2024-01-31 11:54 | Outpatient (REF) | payer OTHER, SELFPAY ==
[2024-01-31 12:46] LABS: Basophils Percent Auto 0.6 % (0.2-2.0); Eosinophils Percent Auto 0.4 % (0.9-7.0); Hematocrit 36.4 % (36.0-48.0); Hemoglobin 11.7 g/dL (12.0-16.0); Immature Granulocytes Abs Auto 0.01 10^3/uL (0.00-0.03); Immature Granulocytes Pct Auto 0.2 % (0.0-0.5); Lymphocytes Percent Auto 18.4 % (20.5-60.0); Mean Corpuscular HGB Conc 32.1 g/dL (29.9-35.2); Mean Corpuscular Hemoglobin 30.8 pg (26.7-34.0); Mean Corpuscular Volume 95.8 fL (81.0-99.0); Mean Platelet Volume 11.7 fL (9.5-13.5); Monocytes Absolute Auto 0.1 10^3/uL (0.3-0.8); Monocytes Percent Auto 2.3 % (1.7-12.0); Neutrophils Absolute Auto 4.1 10^3/uL (1.4-6.5); Neutrophils Percent Auto 78.1 % (43.0-75.0); Platelet Count 224 10^3/uL (150-450); Red Cell Distribution Width 15.9 % (11.0-15.0); White Blood Count 5.3 10^3/uL (4.0-11.0)
[2024-01-31 12:55] LABS: Alanine Aminotransferase 56 U/L (14-59); Albumin Globulin Ratio 1.1; Albumin Level 3.3 g/dL (3.4-5.0); Alkaline Phosphatase 63 U/L (46-116); Anion Gap 15.2; Aspartate Amino Transferase 52 U/L (15-37); BUN Creatinine Ratio 8.9; Bilirubin Total 0.3 mg/dL (0.2-1.0); Calcium 8.2 mg/dL (8.5-10.1); Carbon Dioxide 22.8 mmol/L (21.0-32.0); Chloride 107 mmol/L (98-107); Estimated GFR (African America >60 (>=60 mL/min/1.73m^2); Estimated GFR (Non-African Ame >60 (>=60 mL/min/1.73m^2); Globulin 2.9 g/dL; Glucose 145 mg/dL (74-106); Magnesium 1.6 mg/dL (1.8-2.4); Phosphorus 3.7 mg/dL (2.6-4.7); Sodium 141 mmol/L (136-145); Total Protein 6.2 g/dL (6.4-8.2)
[2024-01-31 13:13] LABS: Percent Iron Saturation 39.3 %
[2024-02-01 08:12] LABS: Transferrin 210 mg/dL (192-364)
== END 2024-01-31 11:55 | disposition home or self-care (01) ==
LOC: LAB 11:54
PROVIDERS: PCP Family Medicine; Visit Provider Internal Medicine Gastroenterology
DX: E44.0 Moderate protein-calorie malnutrition (principal); R11.2 Nausea with vomiting, unspecified
CPT/HCPCS: 36415; 80053; 82728; 83540; 83550; 83735; 84100; 84466; 85025

== ENCOUNTER 2024-02-15 11:29 | Outpatient (REF) | payer OTHER, SELFPAY ==
[2024-02-15 12:29] LABS: Alanine Aminotransferase 44 U/L (14-59); Albumin Globulin Ratio 1.2; Albumin Level 3.6 g/dL (3.4-5.0); Alkaline Phosphatase 70 U/L (46-116); Anion Gap 11.3; Aspartate Amino Transferase 37 U/L (15-37); BUN Creatinine Ratio 7.8; Bilirubin Total 0.3 mg/dL (0.2-1.0); Calcium 8.4 mg/dL (8.5-10.1); Carbon Dioxide 28.5 mmol/L (21.0-32.0); Chloride 106 mmol/L (98-107); Estimated GFR (African America >60 (>=60 mL/min/1.73m^2); Estimated GFR (Non-African Ame >60 (>=60 mL/min/1.73m^2); Glucose 92 mg/dL (74-106); Magnesium 1.8 mg/dL (1.8-2.4); Phosphorus 3.3 mg/dL (2.6-4.7); Potassium 3.8 mmol/L (3.5-5.1); Sodium 142 mmol/L (136-145); Total Protein 6.6 g/dL (6.4-8.2)
[2024-02-15 12:48] LABS: Basophils Percent Auto 0.3 % (0.2-2.0); Eosinophils Percent Auto 0.3 % (0.9-7.0); Hematocrit 37.3 % (36.0-48.0); Hemoglobin 12.5 g/dL (12.0-16.0); Immature Granulocytes Abs Auto 0.01 10^3/uL (0.00-0.03); Immature Granulocytes Pct Auto 0.1 % (0.0-0.5); Lymphocytes Percent Auto 13.6 % (20.5-60.0); Mean Corpuscular HGB Conc 33.5 g/dL (29.9-35.2); Mean Corpuscular Volume 95.4 fL (81.0-99.0); Mean Platelet Volume 11.3 fL (9.5-13.5); Monocytes Absolute Auto 0.2 10^3/uL (0.3-0.8); Monocytes Percent Auto 2.7 % (1.7-12.0); Neutrophils Absolute Auto 6.4 10^3/uL (1.4-6.5); Platelet Count 219 10^3/uL (150-450); Red Blood Count 3.91 10^6/uL (4.20-5.40); Red Cell Distribution Width 14.3 % (11.0-15.0); White Blood Count 7.7 10^3/uL (4.0-11.0)
== END 2024-02-15 11:30 | disposition home or self-care (01) ==
LOC: LAB 11:29
PROVIDERS: PCP Family Medicine; Visit Provider Internal Medicine Gastroenterology
DX: R11.2 Nausea with vomiting, unspecified (principal); E44.0 Moderate protein-calorie malnutrition
CPT/HCPCS: 36415; 80053; 83735; 84100; 85025

== ENCOUNTER 2024-03-29 11:27 | Observation (INO) | payer MEDICAID, SELFPAY ==
[2024-03-29 11:32] VITALS: BP 124/78; PULSE 90; TEMP 36.7; O2SAT 100; BMI 30.3
--- NOTE | 2024-03-29 12:15 | PC.NURSE ---
Patient has tunneled IV line to right upper chest, area with surrounding skin intact, IV line flushes without difficulty and blood return with aspiration.
--- NOTE | 2024-03-29 12:16 | ED.GENADUL1 ---
HPI HPI - General Adult General Chief complaint: Abdominal Pain Stated complaint: LOW BLOOD SUGAR, ABDOMIN PAIN Time Seen by Provider: 03/29/24 11:33 Source: patient Mode of arrival: walk-in History of Present Illness HPI narrative: Patient presents to ED complaining of nausea vomiting and not feeling well. Patient has a history of TPN and hypoglycemia. Patient states when she gets nauseous and starts vomiting she has a hard time keeping her blood sugar up. She said sometimes she needs to come in for IV infusion of fluids and dextrose. Patient states she has left-sided abdominal pain which is chronic for her and that is where her abdominal pain usually flares up but has been a little worse since she has been dry heaving and vomiting. No fevers. Signs are stable. Patient was sent over by Dr. Alas for further evaluation and IV fluids. Patient states she usually gets D5 and normal saline. Related Data Home Medications ?Medication ?Instructions ?Recorded ?Confirmed hydroxyzine HCl 25 mg tablet 25 mg PO BID PRN anxiety 09/17/22 03/29/24 liothyronine 5 mcg tablet 5 mcg PO QDAY 09/17/22 03/29/24 topiramate 100 mg tablet 100 mg PO BID 09/17/22 03/29/24 buspirone 10 mg tablet 10 mg PO TID 06/14/23 03/29/24 linaclotide 290 mcg capsule 290 mcg PO DAILY 06/14/23 03/29/24 (Linzess) methocarbamol 750 mg tablet 750 mg PO TID PRN muscle spasm 06/14/23 03/29/24 metoclopramide HCl 10 mg tablet 10 mg PO AC 06/14/23 03/29/24 albuterol sulfate 90 mcg/actuation 2 puff inhalation Q6H PRN 06/15/23 03/29/24 aerosol inhaler shortness of breath or wheezing escitalopram oxalate 20 mg tablet 20 mg PO DAILY 06/15/23 03/29/24 levothyroxine 75 mcg tablet 75 mcg PO DAILY 06/15/23 03/29/24 mirtazapine 30 mg tablet 30 mg PO .HS 06/15/23 03/29/24 pantoprazole 40 mg tablet,delayed 40 mg PO DAILY 06/15/23 03/29/24 release acetaminophen 325 mg tablet (Pain 650 mg PO Q4H PRN pain 06/24/23 03/29/24 Relief (acetaminophen)) prednisone 10 mg tablet 20 mg PO DAILY 09/23/23 03/29/24 Previous Rx's ?Medication ?Instructions ?Recorded Nutrin 45 ml feeding tube Q1H #3,000 mL 06/16/23 prochlorperazine maleate 10 mg 10 mg PO Q6H PRN nausea and 06/16/23 tablet (Compazine) vomiting #60 tabs tramadol 50 mg tablet 50 mg PO Q6H PRN pain #28 tabs 06/16/23 ondansetron 4 mg disintegrating 4 mg PO Q6H PRN nausea and 07/08/23 tablet vomiting #20 tabs mupirocin calcium 2 % topical cream 1 applic topical BID #15 grams 11/07/23 Allergies Allergy/AdvReac Type Severity Reaction Status Date / Time adhesive Allergy Rash Verified 03/29/24 11:32 NSAIDS (Non-Steroidal Allergy intolerance Verified 03/29/24 11:31 Anti-Inflamma codeine AdvReac Vomiting Verified 03/29/24 11:32 Opioid HPI Opioid Management Most Recent Opioid Data: Last Pain Scale 8 01/17/24 12:46 01/17/24 Last ORT Total Score 2 08/15/23 16:20 08/15/23 Last ORT Risk Category Low Risk 08/15/23 16:20 08/15/23 [facility] Medical History (Updated 03/29/24 @ 13:02 by Magaly Sinha DO) Nausea and vomiting ?R11.2 - Nausea with vomiting, unspecified (ICD-10) Flank pain ?R10.9 - Unspecified abdominal pain (ICD-10) Abdominal pain ?R10.9 - Unspecified abdominal pain (ICD-10) Acute abdomen ?R10.0 - Acute abdomen (ICD-10) Intractable nausea and vomiting ?R11.2 - Nausea with vomiting, unspecified (ICD-10) Intractable abdominal pain ?R10.9 - Unspecified abdominal pain (ICD-10) Depression ?F32.A - Depression, unspecified (ICD-10) Asthma ?J45.909 - Unspecified asthma, uncomplicated (ICD-10) Dyspareunia Pelvic pain ?R10.2 - Pelvic and perineal pain (ICD-10) Ovarian cyst ?N83.209 - Unspecified ovarian cyst, unspecified side (ICD-10) PONV (postoperative nausea and vomiting) ?R11.2 - Nausea with vomiting, unspecified (ICD-10) ?Z98.890 - Other specified postprocedural states (ICD-10) PCOS (polycystic ovarian syndrome) ?E28.2 - Polycystic ovarian syndrome (ICD-10) Hypothyroidism (acquired) ?E03.9 - Hypothyroidism, unspecified (ICD-10) Anxiety ?F41.9 - Anxiety disorder, unspecified (ICD-10) GERD (gastroesophageal reflux disease) ?K21.9 - Gastro-esophageal reflux disease without esophagitis (ICD-10) Sleep apnea ?G47.30 - Sleep apnea, unspecified (ICD-10) Anemia ?D64.9 - Anemia, unspecified (ICD-10) Fibromyalgia ?M79.7 - Fibromyalgia (ICD-10) Syncope (07/07/13) ?R55 - Syncope and collapse (ICD-10) Shingles ?B02.9 - Zoster without complications (ICD-10) Headache ?R51.9 - Headache, unspecified (ICD-10) Migraine ?G43.909 - Migraine, unspecified, not intractable, without status migrainosus (ICD-10) Mechanical ileus (01/31/20) ?K56.609 - Unspecified intestinal obstruction, unspecified as to partial versus complete obstruction (ICD-10) COVID-19 (~02/2020) ?U07.1 - COVID-19 (ICD-10) Kidney stones ?N20.0 - Calculus of kidney (ICD-10) Surgical History S/P percutaneous endoscopic gastrostomy (PEG) tube placement ?Z93.1 - Gastrostomy status (ICD-10) 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 - Celiac artery compression syndrome (ICD-10) H/O shoulder surgery (2022) ?Z98.890 - Other specified postprocedural states (ICD-10) History of hip surgery ?Z98.890 - Other specified postprocedural states (ICD-10) S/P right knee arthroscopy ?Z98.890 - Other specified postprocedural states (ICD-10) S/P left knee arthroscopy ?Z98.890 - Other specified postprocedural states (ICD-10) Hx of tonsillectomy ?Z90.89 - Acquired absence of other organs (ICD-10) History of thoracic surgery (~2021) ?Z98.890 - Other specified postprocedural states (ICD-10) History of esophagogastroduodenoscopy (EGD) (10/04/13) ?Z98.890 - Other specified postprocedural states (ICD-10) History of cholecystectomy (10/06/13) ?Z90.49 - Acquired absence of other specified parts of digestive tract (ICD-10) Delivery by section (~2016) Delivery by section (01/17/18) H/O colonoscopy (~2018) ?Z98.890 - Other specified postprocedural states (ICD-10) S/P right knee arthroscopy (07/21/18) ?Z98.890 - Other specified postprocedural states (ICD-10) Delivery by section (06/19/19) History of appendectomy (09/25/19) ?Z90.49 - Acquired absence of other specified parts of digestive tract (ICD-10) H/O laparoscopy (11/10/19) ?Z98.890 - Other specified postprocedural states (ICD-10) History of liver biopsy (~04/2020) ?Z98.890 - Other specified postprocedural states (ICD-10) H/O laparoscopy (07/18/20) ?Z98.890 - Other specified postprocedural states (ICD-10) H/O arthroscopy of right knee (08/07/20) ?Z98.890 - Other specified postprocedural states (ICD-10) S/P laparoscopic sleeve gastrectomy (09/03/20) ?Z98.84 - Bariatric surgery status (ICD-10) H/O: hysterectomy (11/12/20) ?Z90.710 - Acquired absence of both cervix and uterus (ICD-10) History of hernia repair (03/20/21) ?Z98.890 - Other specified postprocedural states (ICD-10) ?Z87.19 - Personal history of other diseases of the digestive system (ICD-10) Family History (Updated 06/14/23 @ 16:56 by Marsha Du) Other Family history of cancer Family history of diabetes mellitus Family history of hypertension Family history of myocardial infarction PONV (postoperative nausea and vomiting) Social History (Updated 06/14/23 @ 16:57 by Marsha Du) Within the past year, how often did you have a drink containing alcohol: never Score interpretation: A score less than 3 is consistent with normal alcohol consumption. Smoking status: Never smoker Non-prescribed substance use: denies use Highest level of school completed/degree received: Master's degree Are you now , , , , never or living with a partner: In a typical week, how many times do you talk on the telephone with family, friends, or neighbors: 3 or more times per week How often do you get together with friends or relatives: twice per week How often do you attend advent or oriental orthodox services: 4 or more times per year Do you belong to any clubs or organizations such as advent groups unions, [employer] or athletic groups, or school groups: no Total score: 3 Score interpretation: A score of greater than or equal to 2 indicates the lowest level of social isolation. Little interest or pleasure in doing things: not at all Feeling down, depressed, or hopeless: not at all Feel stressed/tense/nervous/anxious/difficulty sleeping: to some extent Do you think of yourself as: straight/heterosexual Gender Identity: female Exam Constitutional Vital Signs, click to edit/add: Last Vital Signs Temp 98.0 F 03/29/24 11:32 Pulse 90 03/29/24 11:32 Resp 20 03/29/24 11:32 BP 124/78 03/29/24 11:32 Pulse Ox 100 03/29/24 11:32 Course Vital Signs Vital signs: Vital Signs Temperature 98.0 F 03/29/24 11:32 Pulse Rate 90 03/29/24 11:32 Respiratory Rate 20 03/29/24 11:32 Blood Pressure 124/78 03/29/24 11:32 Pulse Oximetry 100 03/29/24 11:32 Temperature 98.0 F 03/29/24 11:32 Pulse Rate 90 03/29/24 11:32 Respiratory Rate 20 03/29/24 11:32 Blood Pressure 124/78 03/29/24 11:32 Pulse Oximetry 100 03/29/24 11:32 Medical Decision Making MDM Narrative Medical decision making narrative: Patient's blood sugar was low in the 60s. Patient was started on D5 normal saline for correction of the blood sugar. Patient has still had some nausea. Patient will be admitted overnight to Dr. Alas for replacement of her glucose and control of the nausea vomiting. Patient is comfortable with care plan for admission. Dr. Alas was in ED to see the patient. Patient is otherwise stable. Differential Diagnosis Differential Diagnosis: Hypoglycemia, gastroenteritis, nausea vomiting Lab Data Lab results reviewed: Yes I reviewed the patient's lab results Labs: Lab Results 03/29/24 Range/Units 12:13 WBC 8.6 (4.0-11.0) 10^3/uL RBC 3.73 L (4.20-5.40) 10^6/uL Hgb 12.7 (12.0-16.0) g/dL Hct 36.5 (36.0-48.0) % MCV 97.9 (81.0-99.0) fL MCH 34.0 (26.7-34.0) pg MCHC 34.8 (29.9-35.2) g/dL RDW 12.0 (11.0-15.0) % Plt Count 226 (150-450) 10^3/uL MPV 10.8 (9.5-13.5) fL Neut % (Auto) 87.8 H (43.0-75.0) % Lymph % (Auto) 10.2 L (20.5-60.0) % [place] % (Auto) 1.6 L (1.7-12.0) % Eos % (Auto) 0.0 L (0.9-7.0) % Baso % (Auto) 0.2 (0.2-2.0) % Neut # (Auto) 7.5 H (1.4-6.5) 10^3/uL Lymph # (Auto) 0.9 L (1.2-3.8) 10^3/uL [place] # (Auto) 0.1 L (0.3-0.8) 10^3/uL Eos # (Auto) 0.0 (0.0-0.7) 10^3/uL Baso # (Auto) 0.0 (0.0-0.1) 10^3/uL Abs Immat Gran (auto) 0.02 (0.00-0.03) 10^3/uL Imm/Tot Granulo (auto) 0.2 (0.0-0.5) % Sodium 143 (136-145) mmol/L Potassium 3.8 (3.5-5.1) mmol/L Chloride 107 (98-107) mmol/L Carbon Dioxide 26.7 (21.0-32.0) mmol/L Anion Gap 13.1 BUN 13.0 (7.0-18.0) mg/dL Creatinine 0.94 (0.55-1.02) mg/dL Est GFR ( Amer) >60 (>=60 mL/min/1.73m^2) Est GFR (Non-Af Amer) >60 (>=60 mL/min/1.73m^2) BUN/Creatinine Ratio 13.8 Glucose 66 L (74-106) mg/dL Calcium 8.4 L (8.5-10.1) mg/dL Total Bilirubin 0.3 (0.2-1.0) mg/dL AST 28 (15-37) U/L ALT 31 (14-59) U/L Alkaline Phosphatase 48 (46-116) U/L Total Protein 6.4 (6.4-8.2) g/dL Albumin 3.5 (3.4-5.0) g/dL Globulin 2.9 g/dL Albumin/Globulin Ratio 1.2 Discharge Plan Discharge Chief Complaint: Abdominal Pain Clinical Impression: Abdominal pain, Gastroenteritis, Hypoglycemia Patient Disposition: Admitted as Observation Time of Disposition Decision: 13:02 Condition: Fair Prescriptions / Home Meds: No Action hydroxyzine HCl 25 mg tablet 25 mg PO BID PRN (Reason: anxiety) liothyronine 5 mcg tablet 5 mcg PO QDAY topiramate 100 mg tablet 100 mg PO BID buspirone 10 mg tablet 10 mg PO TID methocarbamol 750 mg tablet 750 mg PO TID PRN (Reason: muscle spasm) metoclopramide HCl 10 mg tablet 10 mg PO AC Linzess 290 mcg capsule 290 mcg PO DAILY albuterol sulfate 90 mcg/actuation HFA aerosol inhaler 2 puff INHALATION Q6H PRN (Reason: shortness of breath or wheezing) levothyroxine 75 mcg tablet 75 mcg PO DAILY escitalopram oxalate 20 mg tablet 20 mg PO DAILY mirtazapine 30 mg tablet 30 mg PO .HS pantoprazole 40 mg tablet,delayed release (/EC) 40 mg PO DAILY Nutrin 45 ml feeding tube Q1H Qty: 3000 11RF prochlorperazine maleate [Compazine] 10 mg tablet 10 mg PO Q6H PRN (Reason: nausea and vomiting) Qty: 60 3RF tramadol 50 mg tablet 50 mg PO Q6H PRN (Reason: pain) Qty: 28 0RF acetaminophen [Pain Relief (acetaminophen)] 325 mg tablet 650 mg PO Q4H PRN (Reason: pain) ondansetron 4 mg tablet,disintegrating 4 mg PO Q6H PRN (Reason: nausea and vomiting) Qty: 20 0RF prednisone 10 mg tablet 20 mg PO DAILY mupirocin calcium 2 % cream 1 applic topical BID Qty: 15 0RF Print Language: Mongolian Referrals: Thomas Alas MD [Primary Care Provider] - 1 week
[2024-03-29] MEDS: DIPHENHYDRAMINE HCL 50 MG/ML VIAL IV (12:22)
[2024-03-29] MEDS: PROCHLORPERAZINE 10 MG/2 ML VIAL 5 MG IV (12:22)
[2024-03-29 12:24] LABS: Basophils Percent Auto 0.2 % (0.2-2.0); Hematocrit 36.5 % (36.0-48.0); Hemoglobin 12.7 g/dL (12.0-16.0); Immature Granulocytes Abs Auto 0.02 10^3/uL (0.00-0.03); Immature Granulocytes Pct Auto 0.2 % (0.0-0.5); Lymphocytes Absolute Auto 0.9 10^3/uL (1.2-3.8); Lymphocytes Percent Auto 10.2 % (20.5-60.0); Mean Corpuscular HGB Conc 34.8 g/dL (29.9-35.2); Mean Corpuscular Volume 97.9 fL (81.0-99.0); Mean Platelet Volume 10.8 fL (9.5-13.5); Monocytes Absolute Auto 0.1 10^3/uL (0.3-0.8); Monocytes Percent Auto 1.6 % (1.7-12.0); Neutrophils Absolute Auto 7.5 10^3/uL (1.4-6.5); Neutrophils Percent Auto 87.8 % (43.0-75.0); Platelet Count 226 10^3/uL (150-450); Red Blood Count 3.73 10^6/uL (4.20-5.40); White Blood Count 8.6 10^3/uL (4.0-11.0)
[2024-03-29 12:36] LABS: Alanine Aminotransferase 31 U/L (14-59); Albumin Globulin Ratio 1.2; Albumin Level 3.5 g/dL (3.4-5.0); Alkaline Phosphatase 48 U/L (46-116); Anion Gap 13.1; Aspartate Amino Transferase 28 U/L (15-37); BUN Creatinine Ratio 13.8; Bilirubin Total 0.3 mg/dL (0.2-1.0); Calcium 8.4 mg/dL (8.5-10.1); Carbon Dioxide 26.7 mmol/L (21.0-32.0); Chloride 107 mmol/L (98-107); Estimated GFR (African America >60 (>=60 mL/min/1.73m^2); Estimated GFR (Non-African Ame >60 (>=60 mL/min/1.73m^2); Globulin 2.9 g/dL; Glucose 66 mg/dL (74-106); Potassium 3.8 mmol/L (3.5-5.1); Sodium 143 mmol/L (136-145); Total Protein 6.4 g/dL (6.4-8.2)
[2024-03-29] MEDS: DEXTROSE 5%-0.9% NACL 1,000 ML 1,000 ML 100 ML IV (12:43)
[2024-03-29 13:14] VITALS: BP 131/73; PULSE 98; O2SAT 99
[2024-03-29] MEDS: DEXTROSE 50 %-WATER 25 GM/50 ML SYRINGE 25 ML IV (13:18)
--- NOTE | 2024-03-29 13:23 | PC.NURSE ---
Blood sugar up at 70 at this time. Patient reports feels better . Now has complaint of abddominal pain, Dr. Sinha notified.
[2024-03-29] MEDS: MORPHINE SULFATE 4 MG/ML VIAL IV (13:44)
[2024-03-29 14:53] VITALS: BP 109/76; PULSE 92; TEMP 36.1; O2SAT 97; BMI 31.2
--- NOTE | 2024-03-29 18:32 | P.HP_ITS ---
HPI H&P: HPI History of Present Illness Chief complaint: LOW BLOOD SUGAR, ABDOMIN PAIN, HYPOGLYCEMIA,NAUSEA Narrative: Patient is a very extensive past medical history with complications occurring status post gastric bypass surgery, she is followed at the [facility], she receives nighttime TPN, she is having trouble with maintaining her blood sugars both throughout the day and at nighttime despite the TPN, they did adjust her TPN fluids but those have not come in yet, patient called the office with significant hypoglycemia in the 60s, unable to bring up with home management, she presented to the emergency room found to have a sugars of 66, she will be admitted for workup and treatment of same When I saw patient in the emergency room, resting fairly comfortably in bed she had already been treated for the hypoglycemia at that point Opioid HPI Opioid Management Most Recent Pain and Opioid Data: Last Pain Scale 7 03/29/24 15:00 03/29/24 Last Pain Assessment 03/29/24 18:11 Last ORT Total Score 2 03/29/24 14:53 03/29/24 Last ORT Risk Category Low Risk 03/29/24 14:53 03/29/24 Review of Systems ROS Status of ROS 10 or more systems reviewed and unremark able except as noted in history and below [facility] Medical History (Updated 03/29/24 @ 15:09 by Rosa Mata RN) Small bowel intussusception ?K56.1 - Intussusception (ICD-10) Nausea and vomiting ?R11.2 - Nausea with vomiting, unspecified (ICD-10) Flank pain ?R10.9 - Unspecified abdominal pain (ICD-10) Abdominal pain ?R10.9 - Unspecified abdominal pain (ICD-10) Acute abdomen ?R10.0 - Acute abdomen (ICD-10) Intractable nausea and vomiting ?R11.2 - Nausea with vomiting, unspecified (ICD-10) Intractable abdominal pain ?R10.9 - Unspecified abdominal pain (ICD-10) Depression ?F32.A - Depression, unspecified (ICD-10) Asthma ?J45.909 - Unspecified asthma, uncomplicated (ICD-10) Dyspareunia Pelvic pain ?R10.2 - Pelvic and perineal pain (ICD-10) Ovarian cyst ?N83.209 - Unspecified ovarian cyst, unspecified side (ICD-10) PONV (postoperative nausea and vomiting) ?R11.2 - Nausea with vomiting, unspecified (ICD-10) ?Z98.890 - Other specified postprocedural states (ICD-10) PCOS (polycystic ovarian syndrome) ?E28.2 - Polycystic ovarian syndrome (ICD-10) Hypothyroidism (acquired) ?E03.9 - Hypothyroidism, unspecified (ICD-10) Anxiety ?F41.9 - Anxiety disorder, unspecified (ICD-10) GERD (gastroesophageal reflux disease) ?K21.9 - Gastro-esophageal reflux disease without esophagitis (ICD-10) Sleep apnea ?G47.30 - Sleep apnea, unspecified (ICD-10) Anemia ?D64.9 - Anemia, unspecified (ICD-10) Fibromyalgia ?M79.7 - Fibromyalgia (ICD-10) Syncope (07/07/13) ?R55 - Syncope and collapse (ICD-10) Shingles ?B02.9 - Zoster without complications (ICD-10) Headache ?R51.9 - Headache, unspecified (ICD-10) Migraine ?G43.909 - Migraine, unspecified, not intractable, without status migrainosus (ICD-10) Mechanical ileus (01/31/20) ?K56.609 - Unspecified intestinal obstruction, unspecified as to partial versus complete obstruction (ICD-10) COVID-19 (~02/2020) ?U07.1 - COVID-19 (ICD-10) Kidney stones ?N20.0 - Calculus of kidney (ICD-10) Surgical History S/P percutaneous endoscopic gastrostomy (PEG) tube placement ?Z93.1 - Gastrostomy status (ICD-10) 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 - Celiac artery compression syndrome (ICD-10) H/O shoulder surgery (2022) ?Z98.890 - Other specified postprocedural states (ICD-10) History of hip surgery ?Z98.890 - Other specified postprocedural states (ICD-10) S/P right knee arthroscopy ?Z98.890 - Other specified postprocedural states (ICD-10) S/P left knee arthroscopy ?Z98.890 - Other specified postprocedural states (ICD-10) Hx of tonsillectomy ?Z90.89 - Acquired absence of other organs (ICD-10) History of thoracic surgery (~2021) ?Z98.890 - Other specified postprocedural states (ICD-10) History of esophagogastroduodenoscopy (EGD) (10/04/13) ?Z98.890 - Other specified postprocedural states (ICD-10) History of cholecystectomy (10/06/13) ?Z90.49 - Acquired absence of other specified parts of digestive tract (ICD- 10) Delivery by section (~2016) Delivery by section (01/17/18) H/O colonoscopy (~2018) ?Z98.890 - Other specified postprocedural states (ICD-10) S/P right knee arthroscopy (07/21/18) ?Z98.890 - Other specified postprocedural states (ICD-10) Delivery by section (06/19/19) History of appendectomy (09/25/19) ?Z90.49 - Acquired absence of other specified parts of digestive tract (ICD- 10) H/O laparoscopy (11/10/19) ?Z98.890 - Other specified postprocedural states (ICD-10) History of liver biopsy (~04/2020) ?Z98.890 - Other specified postprocedural states (ICD-10) H/O laparoscopy (07/18/20) ?Z98.890 - Other specified postprocedural states (ICD-10) H/O arthroscopy of right knee (08/07/20) ?Z98.890 - Other specified postprocedural states (ICD-10) S/P laparoscopic sleeve gastrectomy (09/03/20) ?Z98.84 - Bariatric surgery status (ICD-10) H/O: hysterectomy (11/12/20) ?Z90.710 - Acquired absence of both cervix and uterus (ICD-10) History of hernia repair (03/20/21) ?Z98.890 - Other specified postprocedural states (ICD-10) ?Z87.19 - Personal history of other diseases of the digestive system (ICD-10) Family History (Updated 06/14/23 @ 16:56 by Marsha Du) Other Family history of cancer Family history of diabetes mellitus Family history of hypertension Family history of myocardial infarction PONV (postoperative nausea and vomiting) Social History (Updated 06/14/23 @ 16:57 by Marsha Du) Within the past year, how often did you have a drink containing alcohol: never Score interpretation: A score less than 3 is consistent with normal alcohol consumption. Smoking status: Never smoker Non-prescribed substance use: denies use Highest level of school completed/degree received: Master's degree Are you now , , , , never or living with a partner: In a typical week, how many times do you talk on the telephone with family, friends, or neighbors: 3 or more times per week How often do you get together with friends or relatives: twice per week How often do you attend adventist or amish services: 4 or more times per year Do you belong to any clubs or organizations such as adventist groups unions, [employer] or athletic groups, or school groups: no Total score: 3 Score interpretation: A score of greater than or equal to 2 indicates the lowest level of social isolation. Little interest or pleasure in doing things: not at all Feeling down, depressed, or hopeless: not at all Feel stressed/tense/nervous/anxious/difficulty sleeping: to some extent Do you think of yourself as: straight/heterosexual Gender Identity: female Meds Home Medications and Allergies Home Medications ?Medication ?Instructions ?Recorded ?Confirmed ?Type hydroxyzine HCl 25 mg tablet 25 mg PO BID PRN anxiety 09/17/22 03/29/24 History liothyronine 5 mcg tablet 5 mcg PO QDAY 09/17/22 03/29/24 History topiramate 100 mg tablet 100 mg PO BID 09/17/22 03/29/24 History buspirone 10 mg tablet 10 mg PO TID 06/14/23 03/29/24 History linaclotide 290 mcg capsule 290 mcg PO DAILY 06/14/23 03/29/24 History (Linzess) metoclopramide HCl 10 mg tablet 10 mg PO AC PRN nausea and vomiting 06/14/23 03/29/24 History albuterol sulfate 90 mcg/actuation 2 puff inhalation Q6H PRN 06/15/23 03/29/24 History aerosol inhaler shortness of breath or wheezing escitalopram oxalate 20 mg tablet 20 mg PO DAILY 06/15/23 03/29/24 History levothyroxine 75 mcg tablet 75 mcg PO DAILY 06/15/23 03/29/24 History mirtazapine 30 mg tablet 30 mg PO .HS 06/15/23 03/29/24 History Nutrin 45 ml feeding tube Q1H #3,000 mL 06/16/23 03/29/24 Rx prochlorperazine maleate 10 mg 10 mg PO Q6H PRN nausea and 06/16/23 03/29/24 Rx tablet (Compazine) vomiting #60 tabs tramadol 50 mg tablet 50 mg PO Q6H PRN pain #28 tabs 06/16/23 03/29/24 Rx acetaminophen 325 mg tablet (Pain 650 mg PO Q4H PRN pain 06/24/23 03/29/24 History Relief (acetaminophen)) ondansetron 4 mg disintegrating 4 mg PO Q6H PRN nausea and 07/08/23 03/29/24 Rx tablet vomiting #20 tabs prednisone 10 mg tablet 20 mg PO DAILY 09/23/23 03/29/24 [facility] 03/29/24 03/29/24 History Ultra Test strips) [facility]glucose [facility] 03/29/24 03/29/24 History Ultra2 Meter) blood-glucose sensor ([employer] 03/29/24 03/29/24 History Hunter 3 Plus Sensor device) fentanyl 25 mcg/hr transdermal 1 patch transdermal Q72H 03/29/24 03/29/24 History patch hydrocodone 5 mg-acetaminophen 325 1 tab PO Q6H PRN pain 03/29/24 03/29/24 History mg tablet lancets 30 gauge (OneTouch Delica 03/29/24 03/29/24 History Plus Lancet) methocarbamol 500 mg tablet 750 mg PO Q6H 03/29/24 03/29/24 History omeprazole 40 mg capsule,delayed 40 mg PO BID 03/29/24 03/29/24 History release pen needle, diabetic 32 gauge x 03/29/24 03/29/24 History 5 (BD Stefania 2nd Gen Pen Needle) prucalopride 2 mg tablet 2 mg PO DAILY 03/29/24 03/29/24 History semaglutide 0.25 mg or 0.5 mg (2 0.25 mg subcut QWEEK 03/29/24 03/29/24 History mg/3 mL) subcutaneous pen injector Allergies Allergy/AdvReac Type Severity Reaction Status Date / Time adhesive Allergy Rash Verified 03/29/24 11:32 NSAIDS (Non-Steroidal Allergy intolerance Verified 03/29/24 11:31 Anti-Inflamma codeine AdvReac Vomiting Verified 03/29/24 11:32 Exam Constitutional Vital Signs, click to edit/add: Last Vital Signs Temp 97.0 F L 03/29/24 14:53 Pulse 92 H 03/29/24 14:53 Resp 18 03/29/24 14:53 BP 109/76 03/29/24 14:53 Pulse Ox 97 03/29/24 14:53 O2 Del Method Room Air 03/29/24 14:53 Documenting provider has reviewed patient's vital signs: yes Common normals: no apparent distress Chest Common normals: inspection of chest normal Respiratory Common normals: normal respiratory effort and no retractions Cardio Common normals: regular rate and regular rhythm GI Common normals: Normal to inspection, nondistended, normoactive bowel sounds present (Feeding tube in place) and soft to palpation Back & Pelvis Common normals: no CVA tenderness Results Labs Labs: Short CBC 03/29/24 Range/Units 12:13 WBC 8.6 (4.0-11.0) 10^3/uL Hgb 12.7 (12.0-16.0) g/dL Hct 36.5 (36.0-48.0) % Plt Count 226 (150-450) 10^3/uL BMP 03/29/24 12:13 Sodium 143 Potassium 3.8 Chloride 107 Carbon Dioxide 26.7 BUN 13.0 Creatinine 0.94 Glucose 66 L Calcium 8.4 L Liver Function 03/29/24 Range/Units 12:13 Total Bilirubin 0.3 (0.2-1.0) mg/dL AST 28 (15-37) U/L ALT 31 (14-59) U/L Alkaline Phosphatase 48 (46-116) U/L Albumin 3.5 (3.4-5.0) g/dL Assessment and Plan Assessment and Plan (1) Hypoglycemia: (2) Feeding by G-tube: Plan Admission findings: Significant hypoglycemia despite home management and TPN as well as tube feed usage, patient admitted for workup and treatment of same Severe hypoglycemia with unable to maintain sugars at home, this is felt to be related to adrenal insufficiency, I will give patient 1 dose of IV Decadron and increase her prednisone to 10 mg 3 times a day, maintain TPN, will use D5 when she is not on the TPN and can maintain tube feeds as she does them at home Check urinalysis for etiology for hypoglycemia Patient with chronic abdominal pain, maintain home medications, the chronic abdominal pain is secondary to failed gastric bypass surgery with multiple small bowel obstruction history, patient is on the GI transplant list Generalized anxiety disorder-continue with home medications Hypothyroidism continue with home medications Lumbar radiculopathy-continue with home medications Gastroparesis-continue with medications GERD-continue with home medications Admission status: Patient admitted with severe hypoglycemia despite home management, there is a chance although slim that she could be discharged home tomorrow, will start patient off as observational status. If she fails to maintain sugars during the observational time. She will be changed to inpatient status as medically necessary treatment will span 2 midnights
[2024-03-29 19:04] LABS: Magnesium 1.8 mg/dL (1.8-2.4); Thyroid Stimulating Hormone 0.622 uIU/mL (0.358-3.740)
[2024-03-29] MEDS: HYDROCODONE/ACET 5-325 MG TABLET 1 TAB PO (19:54)
[2024-03-29] MEDS: NITROGLYCERIN 2% 1 GRAM PACKET 1 GM TD (19:55)
[2024-03-29] MEDS: METHOCARBAMOL 500 MG TABLET 750 MG PO (19:55)
[2024-03-29] MEDS: ONDANSETRON PF 4 MG/2 ML VIAL IV (19:56)
[2024-03-29] MEDS: DEXAMETHASONE SOD PHOS 100 MG/10 ML MDV 10 MG IV (20:16)
[2024-03-29 20:20] VITALS: O2SAT 95
[2024-03-29] MEDS: MIRTAZAPINE 15 MG TABLET 30 MG PO (21:15)
[2024-03-29] MEDS: HYDROXYZINE HCL 25 MG TABLET PO (21:15)
[2024-03-29] MEDS: PROCHLORPERAZINE MALEATE 5 MG TABLET 10 MG PO (21:15)
[2024-03-29] MEDS: TOPIRAMATE 100 MG TABLET PO (21:15)
[2024-03-29] MEDS: BUSPIRONE HCL 10 MG TABLET PO (21:16)
[2024-03-29] MEDS: OMEPRAZOLE 40 MG CAPSULE.DR PO (21:16)
[2024-03-29] MEDS: PREDNISONE 20 MG TABLET 10 MG PO (21:16)
[2024-03-29] MEDS: TRAZODONE HCL 50 MG TABLET 100 MG PO (21:30)
[2024-03-29] MEDS: DEXTROSE 5%-0.9% NACL 1,000 ML 1,000 ML 60 ML IV (22:09)
[2024-03-29 23:32] VITALS: BP 113/76; PULSE 73; TEMP 36.6; O2SAT 93
[2024-03-30 04:00] VITALS: BP 97/62; PULSE 67; TEMP 36.2; O2SAT 94
[2024-03-30] MEDS: HYDROXYZINE HCL 25 MG TABLET PO (04:18)
[2024-03-30] MEDS: HYDROCODONE/ACET 5-325 MG TABLET 1 TAB PO (04:18)
[2024-03-30] MEDS: PROCHLORPERAZINE MALEATE 5 MG TABLET 10 MG PO (04:19)
[2024-03-30 05:05] VITALS: O2SAT 94
[2024-03-30 05:29] LABS: Basophils Percent Auto 0.2 % (0.2-2.0); Hematocrit 36.1 % (36.0-48.0); Hemoglobin 12.1 g/dL (12.0-16.0); Immature Granulocytes Abs Auto 0.02 10^3/uL (0.00-0.03); Immature Granulocytes Pct Auto 0.4 % (0.0-0.5); Lymphocytes Absolute Auto 0.6 10^3/uL (1.2-3.8); Lymphocytes Percent Auto 13.3 % (20.5-60.0); Mean Corpuscular HGB Conc 33.5 g/dL (29.9-35.2); Mean Corpuscular Hemoglobin 33.2 pg (26.7-34.0); Mean Corpuscular Volume 99.2 fL (81.0-99.0); Monocytes Absolute Auto 0.1 10^3/uL (0.3-0.8); Monocytes Percent Auto 1.3 % (1.7-12.0); Neutrophils Absolute Auto 3.9 10^3/uL (1.4-6.5); Neutrophils Percent Auto 84.8 % (43.0-75.0); Platelet Count 232 10^3/uL (150-450); Red Blood Count 3.64 10^6/uL (4.20-5.40); White Blood Count 4.6 10^3/uL (4.0-11.0)
[2024-03-30 05:41] LABS: Anion Gap 16.4; BUN Creatinine Ratio 8.2; Calcium 8.3 mg/dL (8.5-10.1); Carbon Dioxide 21.6 mmol/L (21.0-32.0); Chloride 106 mmol/L (98-107); Estimated GFR (African America >60 (>=60 mL/min/1.73m^2); Estimated GFR (Non-African Ame >60 (>=60 mL/min/1.73m^2); Glucose 210 mg/dL (74-106); Magnesium 1.7 mg/dL (1.8-2.4); Sodium 140 mmol/L (136-145)
[2024-03-30] MEDS: BUSPIRONE HCL 10 MG TABLET PO (05:53)
[2024-03-30] MEDS: METHOCARBAMOL 500 MG TABLET 750 MG PO (05:53)
[2024-03-30] MEDS: PREDNISONE 20 MG TABLET 10 MG PO (05:53)
[2024-03-30] MEDS: LEVOTHYROXINE SODIUM 75 MCG TABLET PO (05:53)
[2024-03-30] MEDS: TRAMADOL HCL 50 MG TABLET PO (05:57)
--- NOTE | 2024-03-30 06:41 | P.PN_ITS ---
Progress Note: Subjective Subjective Interval history: Feels much improved today, sugars are elevated this morning Exam Constitutional Vital Signs, click to edit/add: Last Vital Signs Temp 97.2 F L 03/30/24 04:00 Pulse 67 03/30/24 04:00 Resp 12 03/30/24 04:00 BP 97/62 03/30/24 04:00 Pulse Ox 94 L 03/30/24 05:05 O2 Del Method Room Air 03/30/24 05:05 Documenting provider has reviewed patient's vital signs: yes Common normals: no apparent distress Chest Common normals: inspection of chest normal Respiratory Common normals: normal respiratory effort and no retractions Cardio Common normals: regular rate and regular rhythm GI Common normals: Normal to inspection, nondistended, normoactive bowel sounds present (Feeding tube in place) and soft to palpation Back & Pelvis Common normals: no CVA tenderness Progress Note: Objective Labs Labs: Short CBC 03/29/24 03/30/24 Range/Units 12:13 05:12 WBC 8.6 4.6 (4.0-11.0) 10^3/uL Hgb 12.7 12.1 (12.0-16.0) g/dL Hct 36.5 36.1 (36.0-48.0) % Plt Count 226 232 (150-450) 10^3/uL BMP 03/29/24 03/30/24 12:13 05:12 Sodium 143 140 Potassium 3.8 4.0 Chloride 107 106 Carbon Dioxide 26.7 21.6 BUN 13.0 8.0 Creatinine 0.94 0.98 Glucose 66 L 210 H Calcium 8.4 L 8.3 L Liver Function 03/29/24 Range/Units 12:13 Total Bilirubin 0.3 (0.2-1.0) mg/dL AST 28 (15-37) U/L ALT 31 (14-59) U/L Alkaline Phosphatase 48 (46-116) U/L Albumin 3.5 (3.4-5.0) g/dL Progress Note: A&P Assessment and Plan (1) Hypoglycemia: (2) Feeding by G-tube: Plan Admission findings: Significant hypoglycemia despite home management and TPN as well as tube feed usage, patient admitted for workup and treatment of same Severe hypoglycemia with unable to maintain sugars at home, this is felt to be related to adrenal insufficiency,-patient was given 1 dose of IV Decadron increase earlier prednisone to 10 mg 3 times a day, try to space that out over the course of the day hopefully will maintain sugars better, she feels much improved this morning's will discharge patient home in improving condition. Medications see list. Follow-up with me in the office next week. Check urinalysis for etiology for hypoglycemia Patient with chronic abdominal pain, maintain home medications, the chronic a bdominal pain is secondary to failed gastric bypass surgery with multiple small bowel obstruction history, patient is on the GI transplant list Generalized anxiety disorder-continue with home medications Hypothyroidism continue with home medications Lumbar radiculopathy-continue with home medications Gastroparesis-continue with medications GERD-continue with home medications Admission status: Patient admitted with severe hypoglycemia despite home management, there is a chance although slim that she could be discharged home tomorrow, will start patient off as observational status. If she fails to maintain sugars during the observational time. She will be changed to inpatient status as medically necessary treatment will span 2 midnights ?
[2024-03-30 08:14] VITALS: BP 112/72; PULSE 94; TEMP 36.6; O2SAT 96
[2024-03-30] MEDS: OMEPRAZOLE 40 MG CAPSULE.DR PO (08:25)
[2024-03-30] MEDS: TOPIRAMATE 100 MG TABLET PO (08:26)
[2024-03-30] MEDS: ESCITALOPRAM 10 MG TABLET 20 MG PO (08:26)
[2024-03-30] MEDS: LIOTHYRONINE SODIUM 5 MCG TABLET PO (08:26)
--- NOTE | 2024-03-30 09:26 | SWNOTE1 ---
SW stopped in to speak with pt in regards to HH. At this time pt does not have HH services coming in anymore, she [facility] in [place]. Pt voiced she is doing well at home and does her own TPN at home. Pt denies any discharge needs at this time. SW to follow as needed.
--- NOTE | 2024-03-30 09:42 | CM.NOTE ---
Rounds made with Dr. Alas, pt will discharge to home. No discharge needs identified.
--- NOTE | 2024-03-31 11:50 | CM.DCFOLLOWU ---
Person spoke with:patient How are you feeling?well How is your pain?none Did you understand your discharge instructions?yes Do you have any questions about your discharge instructions? no Were you given any prescriptions at discharge? yes Were you able to get your prescriptions filled?yes Do you understand how to take your medications as ordered?yes Do you have any questions about your follow up appointment and do you plan to keep your follow up appointment? no questions, follow up Wednesday with PCP Is there anything else that you would like to discuss? no Questions/Comments/Concerns/Other:none
== END 2024-03-30 10:09 | disposition home or self-care (01) ==
LOC: ER 13:02 → MS 03-30 08:00
PROVIDERS: Admitting Provider Family Medicine; Emergency Provider Emergency Medicine; PCP Family Medicine; Visit Provider Family Medicine
DX: E16.2 Hypoglycemia, unspecified (principal); K52.9 Noninfective gastroenteritis and colitis, unspecified; R10.9 Unspecified abdominal pain; Z98.84 Bariatric surgery status; Z79.899 Other long term (current) 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; Z90.49 Acquired absence of other specified parts of digestive tract; Z90.710 Acquired absence of both cervix and uterus; Z93.1 Gastrostomy status; E27.40 Unspecified adrenocortical insufficiency; G89.29 Other chronic pain; F41.1 Generalized anxiety disorder; E03.9 Hypothyroidism, unspecified; M54.16 Radiculopathy, lumbar region; K21.9 Gastro-esophageal reflux disease without esophagitis; K31.84 Gastroparesis; K95.89 Other complications of other bariatric procedure
CPT/HCPCS: 36415; 36591; 80048; 80053; 81001; 83735; 84443; 85025; 94761; 96361; 96374; 96375; 99285; G0378; J0780; J1100; J1200; J2270; J2405; J7512; Q0164

== ENCOUNTER 2024-06-21 10:55 | Emergency (ER) | payer MEDICAID, SELFPAY ==
[2024-06-21 11:00] VITALS: BP 144/78; PULSE 84; TEMP 36.6; O2SAT 100; BMI 29.1
--- NOTE | 2024-06-21 11:12 | ECG_ITS ---
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 Measurements Intervals [place] Rate: 80 P: 54 VA: 140 QRS: 47 QRSD: 80 T: 46 QT: 384 QTc: 420 Interpretive Statements 1100 Sinus rhythm 9110 normal ECG Compared to ECG 09/23/2023 18:36:37 No significant changes Electronically Signed On 06-21-2024 18:14:03 EDT by JAMES HODGES M.D.
--- NOTE | 2024-06-21 11:17 | ED.GENADUL1 ---
HPI HPI - General Adult General Chief complaint: Nausea/Vomiting/Diarrhea Stated complaint: NAUSEA VOMITING ABDOMINAL PAIN Time Seen by Provider: 06/21/24 10:58 Mode of arrival: walk-in History of Present Illness HPI narrative: 34-year-old female presents to the emergency department for abdominal pain and nausea and vomiting and diarrhea. This time it started 2 to 3 days ago. She is been getting weaned off of her dexamethasone and she states that her blood sugars were low last night, in the 40s and 50s. She complains mostly of left-sided abdominal pain. She has a feeding tube and a Hodges. No fever or trauma. Related Data Home Medications ?Medication ?Instructions ?Recorded ?Confirmed hydroxyzine HCl 25 mg tablet 25 mg PO BID PRN anxiety 09/17/22 06/21/24 liothyronine 5 mcg tablet 5 mcg PO QDAY 09/17/22 06/21/24 topiramate 100 mg tablet 100 mg PO BID 09/17/22 06/21/24 buspirone 10 mg tablet 10 mg PO TID 06/14/23 06/21/24 linaclotide 290 mcg capsule 290 mcg PO DAILY 06/14/23 06/21/24 (Linzess) metoclopramide HCl 10 mg tablet 10 mg PO AC PRN nausea and vomiting 06/14/23 06/21/24 albuterol sulfate 90 mcg/actuation 2 puff inhalation Q6H PRN 06/15/23 06/21/24 aerosol inhaler shortness of breath or wheezing escitalopram oxalate 20 mg tablet 20 mg PO DAILY 06/15/23 06/21/24 levothyroxine 75 mcg tablet 75 mcg PO DAILY 06/15/23 06/21/24 mirtazapine 30 mg tablet 45 mg PO .HS 06/15/23 06/21/24 acetaminophen 325 mg tablet (Pain 650 mg PO Q4H PRN pain 06/24/23 06/21/24 Relief (acetaminophen)) Nutrin 45 ml feeding tube Q1H 03/29/24 06/21/24 blood sugar diagnostic (OneTouch 03/29/24 03/29/24 Ultra Test strips) blood-glucose meter (OneTouch 03/29/24 03/29/24 Ultra2 Meter) blood-glucose sensor (FreeStyle 03/29/24 03/29/24 Hunter 3 Plus Sensor device) fentanyl 25 mcg/hr transdermal 1 patch transdermal Q72H 03/29/24 06/21/24 patch hydrocodone 5 mg-acetaminophen 325 1 tab PO Q6H PRN pain 03/29/24 06/21/24 mg tablet lancets 30 gauge (OneTouch Delica 03/29/24 03/29/24 Plus Lancet) methocarbamol 500 mg tablet 750 mg PO Q6H 03/29/24 06/21/24 omeprazole 40 mg capsule,delayed 40 mg PO BID 03/29/24 06/21/24 release pen needle, diabetic 32 gauge x 03/29/24 03/29/24 (BD Stefania 2nd Gen Pen Needle) prucalopride 2 mg tablet 2 mg PO DAILY 03/29/24 06/21/24 trazodone 100 mg tablet 100 mg PO .qhs 03/29/24 06/21/24 dexamethasone 2 mg tablet 3 mg PO DAILY 06/21/24 06/21/24 ergocalciferol (vitamin D2) 1,250 1,250 mcg PO .Q7 06/21/24 06/21/24 mcg (50,000 unit) capsule Previous Rx's ?Medication ?Instructions ?Recorded prochlorperazine maleate 10 mg 10 mg PO Q6H PRN nausea and 06/16/23 tablet (Compazine) vomiting #60 tabs tramadol 50 mg tablet 50 mg PO Q6H PRN pain #28 tabs 06/16/23 Allergies Allergy/AdvReac Type Severity Reaction Status Date / Time adhesive Allergy Rash Verified 06/21/24 11:00 NSAIDS (Non-Steroidal Allergy intolerance Verified 06/21/24 11:00 Anti-Inflamma codeine AdvReac Vomiting Verified 06/21/24 11:00 Opioid HPI Opioid Management Most Recent Opioid Data: Last Pain Scale 5 03/30/24, 09:04 Last ED Pain Assessment Today, 12:05 Last ORT Total Score 2 03/29/24, 14:53 Last ORT Risk Category Low Risk 03/29/24, 14:53 Review of Systems ROS Narrative A ten point review of systems is negative except as noted above. [facility] Medical History (Updated 06/21/24 @ 12:53 by Reji Damon MD) Hypoglycemia ?E16.2 - Hypoglycemia, unspecified (ICD-10) Gastroenteritis ?K52.9 - Noninfective gastroenteritis and colitis, unspecified (ICD-10) Feeding by G-tube ?Z93.1 - Gastrostomy status (ICD-10) Abdominal pain ?R10.9 - Unspecified abdominal pain (ICD-10) Small bowel intussusception ?K56.1 - Intussusception (ICD-10) Nausea and vomiting ?R11.2 - Nausea with vomiting, unspecified (ICD-10) Flank pain ?R10.9 - Unspecified abdominal pain (ICD-10) Abdominal pain ?R10.9 - Unspecified abdominal pain (ICD-10) Acute abdomen ?R10.0 - Acute abdomen (ICD-10) Intractable nausea and vomiting ?R11.2 - Nausea with vomiting, unspecified (ICD-10) Intractable abdominal pain ?R10.9 - Unspecified abdominal pain (ICD-10) Depression ?F32.A - Depression, unspecified (ICD-10) Asthma ?J45.909 - Unspecified asthma, uncomplicated (ICD-10) Dyspareunia Pelvic pain ?R10.2 - Pelvic and perineal pain (ICD-10) Ovarian cyst ?N83.209 - Unspecified ovarian cyst, unspecified side (ICD-10) PONV (postoperative nausea and vomiting) ?R11.2 - Nausea with vomiting, unspecified (ICD-10) ?Z98.890 - Other specified postprocedural states (ICD-10) PCOS (polycystic ovarian syndrome) ?E28.2 - Polycystic ovarian syndrome (ICD-10) Hypothyroidism (acquired) ?E03.9 - Hypothyroidism, unspecified (ICD-10) Anxiety ?F41.9 - Anxiety disorder, unspecified (ICD-10) GERD (gastroesophageal reflux disease) ?K21.9 - Gastro-esophageal reflux disease without esophagitis (ICD-10) Sleep apnea ?G47.30 - Sleep apnea, unspecified (ICD-10) Anemia ?D64.9 - Anemia, unspecified (ICD-10) Fibromyalgia ?M79.7 - Fibromyalgia (ICD-10) Syncope (07/07/13) ?R55 - Syncope and collapse (ICD-10) Shingles ?B02.9 - Zoster without complications (ICD-10) Headache ?R51.9 - Headache, unspecified (ICD-10) Migraine ?G43.909 - Migraine, unspecified, not intractable, without status migrainosus (ICD-10) Mechanical ileus (01/31/20) ?K56.609 - Unspecified intestinal obstruction, unspecified as to partial versus complete obstruction (ICD-10) COVID-19 (~02/2020) ?U07.1 - COVID-19 (ICD-10) Kidney stones ?N20.0 - Calculus of kidney (ICD-10) Surgical History S/P percutaneous endoscopic gastrostomy (PEG) tube placement ?Z93.1 - Gastrostomy status (ICD-10) 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 - Celiac artery compression syndrome (ICD-10) H/O shoulder surgery (2022) ?Z98.890 - Other specified postprocedural states (ICD-10) History of hip surgery ?Z98.890 - Other specified postprocedural states (ICD-10) S/P right knee arthroscopy ?Z98.890 - Other specified postprocedural states (ICD-10) S/P left knee arthroscopy ?Z98.890 - Other specified postprocedural states (ICD-10) Hx of tonsillectomy ?Z90.89 - Acquired absence of other organs (ICD-10) History of thoracic surgery (~2021) ?Z98.890 - Other specified postprocedural states (ICD-10) History of esophagogastroduodenoscopy (EGD) (10/04/13) ?Z98.890 - Other specified postprocedural states (ICD-10) History of cholecystectomy (10/06/13) ?Z90.49 - Acquired absence of other specified parts of digestive tract (ICD-10) Delivery by section (~2016) Delivery by section (01/17/18) H/O colonoscopy (~2018) ?Z98.890 - Other specified postprocedural states (ICD-10) S/P right knee arthroscopy (07/21/18) ?Z98.890 - Other specified postprocedural states (ICD-10) Delivery by section (06/19/19) History of appendectomy (09/25/19) ?Z90.49 - Acquired absence of other specified parts of digestive tract (ICD-10) H/O laparoscopy (11/10/19) ?Z98.890 - Other specified postprocedural states (ICD-10) History of liver biopsy (~04/2020) ?Z98.890 - Other specified postprocedural states (ICD-10) H/O laparoscopy (07/18/20) ?Z98.890 - Other specified postprocedural states (ICD-10) H/O arthroscopy of right knee (08/07/20) ?Z98.890 - Other specified postprocedural states (ICD-10) S/P laparoscopic sleeve gastrectomy (09/03/20) ?Z98.84 - Bariatric surgery status (ICD-10) H/O: hysterectomy (11/12/20) ?Z90.710 - Acquired absence of both cervix and uterus (ICD-10) History of hernia repair (03/20/21) ?Z98.890 - Other specified postprocedural states (ICD-10) ?Z87.19 - Personal history of other diseases of the digestive system (ICD-10) Family History (Updated 06/14/23 @ 16:56 by Marsha Du) Other Family history of cancer Family history of diabetes mellitus Family history of hypertension Family history of myocardial infarction PONV (postoperative nausea and vomiting) Social History (Updated 06/14/23 @ 16:57 by Marsha Du) Within the past year, how often did you have a drink containing alcohol: never Score interpretation: A score less than 3 is consistent with normal alcohol consumption. Smoking status: Never smoker Non-prescribed substance use: denies use Highest level of school completed/degree received: Master's degree Are you now , , , , never or living with a partner: In a typical week, how many times do you talk on the telephone with family, friends, or neighbors: 3 or more times per week How often do you get together with friends or relatives: twice per week How often do you attend nondenominational or oriental orthodox services: 4 or more times per year Do you belong to any clubs or organizations such as nondenominational groups unions, fraternal or athletic groups, or school groups: no Total score: 3 Score interpretation: A score of greater than or equal to 2 indicates the lowest level of social isolation. Little interest or pleasure in doing things: not at all Feeling down, depressed, or hopeless: not at all Feel stressed/tense/nervous/anxious/difficulty sleeping: to some extent Do you think of yourself as: straight/heterosexual Gender Identity: female Exam Narrative Exam Narrative: Nurses note and vital signs reviewed and patient is not hypoxic. General: The patient appears well and in no apparent distress. Skin: Warm, dry, no pallor noted. There is no rash noted. Head: Normocephalic, atraumatic Ears, Nose, Mouth, and Throat: oral mucosa is moist. Nares patent. Cardiovascular: Regular Rate and Rhythm Respiratory: Patient is in no distress, no accessory muscle use, lungs are clear to auscultation, no wheezing, rales or rhonchi Back: non-tender GI: Feeding and tube in place. No surrounding erythema. There is no distention. There seems to be mild tenderness diffusely on palpation Musculoskeletal: The patient has no evidence of calf tenderness, no pitting edema, symmetrical pulses noted bilaterally Neurological: A&O, normal speech Psychiatric: Cooperative Constitutional Vital Signs, click to edit/add: Last Vital Signs Temp 97.8 F 06/21/24 11:00 Pulse 77 06/21/24 12:30 Resp 19 06/21/24 12:30 BP 135/69 06/21/24 12:05 Pulse Ox 97 06/21/24 12:05 O2 Del Method Room Air 06/21/24 12:05 Course Vital Signs Vital signs: Vital Signs Temperature 97.8 F 06/21/24 11:00 Pulse Rate 84 06/21/24 11:00 Respiratory Rate 20 06/21/24 11:00 Blood Pressure 144/78 H 06/21/24 11:00 Pulse Oximetry 100 06/21/24 11:00 Oxygen Delivery Method Room Air 06/21/24 11:00 Temperature 97.8 F 06/21/24 11:00 Pulse Rate 77 06/21/24 12:30 Respiratory Rate 19 06/21/24 12:30 Blood Pressure 135/69 06/21/24 12:05 Pulse Oximetry 97 06/21/24 12:05 Oxygen Delivery Method Room Air 06/21/24 12:05 Medical Decision Making MDM Narrative Medical decision making narrative: Her labs are essentially normal. There is no evidence of adrenal crisis and she is discharged home. Case discussed with Dr. Alas and the patient. Differential Diagnosis Differential Diagnosis: Nausea and vomiting, abdominal pain, adrenal crisis Lab Data Lab results reviewed: Yes I reviewed the patient's lab results Labs: Lab Results 06/21/24 Range/Units 11:30 WBC 5.6 (4.0-11.0) 10^3/uL RBC 3.72 L (4.20-5.40) 10^6/uL Hgb 12.3 (12.0-16.0) g/dL Hct 35.4 L (36.0-48.0) % MCV 95.2 (81.0-99.0) fL MCH 33.1 (26.7-34.0) pg MCHC 34.7 (29.9-35.2) g/dL RDW 12.2 (11.0-15.0) % Plt Count 254 (150-450) 10^3/uL MPV 9.4 L (9.5-13.5) fL Neut % (Auto) 83.0 H (43.0-75.0) % Lymph % (Auto) 13.7 L (20.5-60.0) % Gem % (Auto) 2.7 (1.7-12.0) % Eos % (Auto) 0.0 L (0.9-7.0) % Baso % (Auto) 0.2 (0.2-2.0) % Neut # (Auto) 4.7 (1.4-6.5) 10^3/uL Lymph # (Auto) 0.8 L (1.2-3.8) 10^3/uL Gem # (Auto) 0.2 L (0.3-0.8) 10^3/uL Eos # (Auto) 0.0 (0.0-0.7) 10^3/uL Baso # (Auto) 0.0 (0.0-0.1) 10^3/uL Abs Immat Gran (auto) 0.02 (0.00-0.03) 10^3/uL Imm/Tot Granulo (auto) 0.4 (0.0-0.5) % Sodium 137 (136-145) mmol/L Potassium 3.5 (3.5-5.1) mmol/L Chloride 102 (98-107) mmol/L Carbon Dioxide 23.7 (21.0-32.0) mmol/L Anion Gap 14.8 BUN 10.0 (7.0-18.0) mg/dL Creatinine 0.74 (0.55-1.02) mg/dL Est GFR ( Amer) >60 (>=60 mL/min/1.73m^2) Est GFR (Non-Af Amer) >60 (>=60 mL/min/1.73m^2) BUN/Creatinine Ratio 13.5 Glucose 115 H (74-106) mg/dL Calcium 8.7 (8.5-10.1) mg/dL Total Bilirubin 0.6 (0.2-1.0) mg/dL Direct Bilirubin 0.2 (0.0-0.2) mg/dL AST 22 (15-37) U/L ALT 27 (14-59) U/L Alkaline Phosphatase 62 (46-116) U/L Total Protein 6.7 (6.4-8.2) g/dL Albumin 3.4 (3.4-5.0) g/dL Globulin 3.3 g/dL Albumin/Globulin Ratio 1.0 Amylase 51 (25-115) U/L Lipase 78.0 H (16.0-77.0) U/L Serum HCG, Qual Negative (NEGATIVE) Discharge Plan Discharge Chief Complaint: Nausea/Vomiting/Diarrhea Clinical Impression: Nausea & vomiting Patient Disposition: Home, Self-Care Time of Disposition Decision: 12:53 Condition: Good Mode of Transportation: Private Vehicle Prescriptions / Home Meds: No Action (DME) blood-glucose meter [OneTouch Ultra2 Meter] Misc MISCELLANEOUS (DME) OneTouch Ultra Test Strip MISCELLANEOUS fentanyl 25 mcg/hr patch 72 hour 1 patch transdermal Q72H (DME) FreeStyle Hunter 3 Plus Sensor Device MISCELLANEOUS hydrocodone-acetaminophen 5-325 mg tablet 1 tab PO Q6H PRN (Reason: pain) (DME) lancets [OneTouch Delica Plus Lancet] 30 gauge misc MISCELLANEOUS methocarbamol 500 mg tablet 750 mg PO Q6H omeprazole 40 mg capsule,delayed release(DR/EC) 40 mg PO BID (DME) pen needle, diabetic [BD Stefania 2nd Gen Pen Needle] 32 gauge x 5/32 needle MISCELLANEOUS prucalopride 2 mg tablet 2 mg PO DAILY trazodone 100 mg tablet 100 mg PO .qhs Nutrin 45 ml feeding tube Q1H Rx Instructions: tube feed that runs at bedtime at 45ml/hr. continuous drip hydroxyzine HCl 25 mg tablet 25 mg PO BID PRN (Reason: anxiety) liothyronine 5 mcg tablet 5 mcg PO QDAY topiramate 100 mg tablet 100 mg PO BID buspirone 10 mg tablet 10 mg PO TID metoclopramide HCl 10 mg tablet 10 mg PO AC PRN (Reason: nausea and vomiting) Linzess 290 mcg capsule 290 mcg PO DAILY albuterol sulfate 90 mcg/actuation HFA aerosol inhaler 2 puff INHALATION Q6H PRN (Reason: shortness of breath or wheezing) levothyroxine 75 mcg tablet 75 mcg PO DAILY escitalopram oxalate 20 mg tablet 20 mg PO DAILY mirtazapine 30 mg tablet 45 mg PO .HS prochlorperazine maleate [Compazine] 10 mg tablet 10 mg PO Q6H PRN (Reason: nausea and vomiting) Qty: 60 3RF tramadol 50 mg tablet 50 mg PO Q6H PRN (Reason: pain) Qty: 28 0RF acetaminophen [Pain Relief (acetaminophen)] 325 mg tablet 650 mg PO Q4H PRN (Reason: pain) dexamethasone 2 mg tablet 3 mg PO DAILY ergocalciferol (vitamin D2) 1,250 mcg (50,000 unit) capsule 1,250 mcg PO .Q7 Print Language: Mongolian Instructions: Acute Nausea and Vomiting (ED) Referrals: Thomas Alas MD [Primary Care Provider, Family Practice] - 1 week
[2024-06-21 11:23] VITALS: PULSE 79
[2024-06-21 11:30] VITALS: PULSE 85
[2024-06-21 11:38] LABS: Basophils Percent Auto 0.2 % (0.2-2.0); Hematocrit 35.4 % (36.0-48.0); Hemoglobin 12.3 g/dL (12.0-16.0); Immature Granulocytes Abs Auto 0.02 10^3/uL (0.00-0.03); Immature Granulocytes Pct Auto 0.4 % (0.0-0.5); Lymphocytes Absolute Auto 0.8 10^3/uL (1.2-3.8); Lymphocytes Percent Auto 13.7 % (20.5-60.0); Mean Corpuscular HGB Conc 34.7 g/dL (29.9-35.2); Mean Corpuscular Hemoglobin 33.1 pg (26.7-34.0); Mean Corpuscular Volume 95.2 fL (81.0-99.0); Mean Platelet Volume 9.4 fL (9.5-13.5); Monocytes Absolute Auto 0.2 10^3/uL (0.3-0.8); Monocytes Percent Auto 2.7 % (1.7-12.0); Neutrophils Absolute Auto 4.7 10^3/uL (1.4-6.5); Platelet Count 254 10^3/uL (150-450); Red Blood Count 3.72 10^6/uL (4.20-5.40); Red Cell Distribution Width 12.2 % (11.0-15.0); White Blood Count 5.6 10^3/uL (4.0-11.0)
[2024-06-21] MEDS: 0.9 % SODIUM CHLORIDE 1,000 ML 1000 ML IV (11:38)
[2024-06-21] MEDS: ONDANSETRON PF 4 MG/2 ML VIAL IV (11:38)
[2024-06-21] MEDS: MORPHINE SULFATE 4 MG/ML VIAL IV (11:41)
--- NOTE | 2024-06-21 11:47 | PC.NURSE ---
Patient has Hodges single lumen to right upper chest, present on admission to ER.
[2024-06-21 11:49] LABS: Anion Gap 14.8; BUN Creatinine Ratio 13.5; Calcium 8.7 mg/dL (8.5-10.1); Carbon Dioxide 23.7 mmol/L (21.0-32.0); Chloride 102 mmol/L (98-107); Estimated GFR (African America >60 (>=60 mL/min/1.73m^2); Estimated GFR (Non-African Ame >60 (>=60 mL/min/1.73m^2); Glucose 115 mg/dL (74-106); Potassium 3.5 mmol/L (3.5-5.1); Sodium 137 mmol/L (136-145)
[2024-06-21 11:52] LABS: HCG Qualitative NEGATIVE (NEGATIVE); Internal Control Within Normal Limits
[2024-06-21 11:53] LABS: Alanine Aminotransferase 27 U/L (14-59); Albumin Level 3.4 g/dL (3.4-5.0); Alkaline Phosphatase 62 U/L (46-116); Amylase 51 U/L (25-115); Aspartate Amino Transferase 22 U/L (15-37); Bilirubin Direct 0.2 mg/dL (0.0-0.2); Bilirubin Total 0.6 mg/dL (0.2-1.0); Globulin 3.3 g/dL; Total Protein 6.7 g/dL (6.4-8.2)
[2024-06-21 12:00] VITALS: PULSE 83
[2024-06-21 12:05] VITALS: BP 135/69; PULSE 83; PULSE 85; O2SAT 97
[2024-06-21] MEDS: DIPHENHYDRAMINE HCL 50 MG/ML VIAL 25 MG IVP (12:12)
[2024-06-21] MEDS: PROCHLORPERAZINE 10 MG/2 ML VIAL IV (12:12)
[2024-06-21 12:30] VITALS: PULSE 77
== END 2024-06-21 13:11 | disposition home or self-care (01) ==
PROVIDERS: Emergency Provider Emergency Medicine; PCP Family Medicine
DX: R11.2 Nausea with vomiting, unspecified (principal); R10.9 Unspecified abdominal pain; Z93.1 Gastrostomy status; Z90.49 Acquired absence of other specified parts of digestive tract; Z98.84 Bariatric surgery status; Z90.710 Acquired absence of both cervix and uterus
CPT/HCPCS: 36415; 80048; 80076; 82150; 83690; 84703; 85025; 93005; 96361; 96374; 96375; 99284; J0780; J1200; J2270; J2405

== ENCOUNTER 2024-07-22 11:52 | Emergency (ER) | payer MEDICAID, SELFPAY ==
--- OUTSIDE RECORDS SUMMARY | 2024-07-07 03:54 | XMS_ITS ---
Author Organization The [facility] in [place] Address [address] [place] [address] Care Team Providers Care Sales Lead Generator Name Role Phone Brandyn Alas Primary Care Provider [phone] REASON FOR VISIT refill Medications Medication SIG (Take, Route, Frequency, Duration) Notes Start Date End Date Status HYDROcodone-Acetaminophen 5-325 MG 1 - 2 tablet as needed - max 6/day Orally every 6 hrs for 14 days K56.600 K56.600 07/07/2024 Active Encounters Encounter Location Date Provider Diagnosis [address] [address] 07/07/2024 Brandyn Alas GERD (gastroesophag eal reflux disease) K21.9 Assessments Encounter Date Diagnosis (ICD Code) Assessment Notes Treatment Notes Treatment Clinical Notes Section Notes 07/07/2024 GERD (gastroesophage al reflux disease) (ICD-10 - K21.9) Plan Of Treatment Medication Medication Name Sig Start Date Stop Date Notes HYDROcodone-Acetaminophen 5-325 MG 1 - 2 tablet as needed - max 6/day Orally every 6 hrs for 14 days 07/07/2024 K56.600 Progress Notes * Abbey KONG MDOB:1990 (34 yo F)Acc No.[id number]:07/07/2024 Patient: Jarrod AlejandroAbbey Salomon :1990 A ge:34 Y S ex:Female Address:[address] [place] [address] , [place], [address] * Refills Refill HYDROcodone-Acetaminophen Tablet, 5-325 MG, Orally, 84, 1 - 2 tablet as needed - max 6/day, every 6 hrs, 14 days, Refills=0 * true * Date: Generated for Hailey jordan/Ari/Kateitting on: 0 07/22/2024 11:59 AM EDT
--- OUTSIDE RECORDS SUMMARY | 2024-07-21 03:32 | XMS_ITS ---
Author Organization The [facility] in [place] Address [address] [place] [address] Care Team Providers Care Mud Grinder Name Role Phone Brandyn Alas Primary Care Provider REASON FOR VISIT [facility] and Fentanyl patch refill Medications Medication SIG (Take, Route, Frequency, Duration) Notes Start Date End Date Status HYDROcodone-Acetaminophen 5-325 MG 1 - 2 tablet as needed - max 6/day Orally every 6 hrs for 14 days K56.600 K56.600 07/21/2024 Active fentaNYL 25 MCG/HR 1 patch to skin Transdermal Q3d for 30 days 07/21/2024 Active Encounters Encounter Location Date Provider Diagnosis [facility] [address] [place] [address] 07/21/2024 Brandyn Alas Partial intestinal obstruction, unspecified as to cause K56.600 and GERD (gastroesophageal reflux disease) K21.9 Assessments Encounter Date Diagnosis (ICD Code) Assessment Notes Treatment Notes Treatment Clinical Notes Section Notes 07/21/2024 Partial intestinal obstruction, unspecified as to cause (ICD-10 - K56.600) 07/21/2024 GERD (gastroesophagea l reflux disease) (ICD-10 - K21.9) Plan Of Treatment Medication Medication Name Sig Start Date Stop Date Notes HYDROcodone-Acetaminophen 5-325 MG 1 - 2 tablet as needed - max 6/day Orally every 6 hrs for 14 days 07/21/2024 K56.600 fentaNYL 25 MCG/HR 1 patch to skin Key sdermal Q3d for 30 days 07/21/2024 Progress Notes * Abbey KONG MDOB:1990 (34 yo F)Acc No.[id number]:07/21/2024 Patient: Abbey OSBORNE :1990 A ge:34 Y S ex:Female Address:[address] [place] [address], [address] * Refills Refill fentaNYL Patch 72 Hour, 25 MCG/HR, Transdermal, 10, 1 patch to skin, Q3d, 30 days, Refills=0 Refill HYDROcodone-Acetaminophen Tablet, 5-325 MG, Orally, 84, 1 - 2 tablet as needed - max 6/day, every 6 hrs, 14 days, Refills=0 * true * Date: Generated for Hailey jordan/Ari/Kateitting on: 0 07/22/2024 11:58 AM EDT
--- OUTSIDE RECORDS SUMMARY | 2024-07-21 04:54 | XMS_ITS ---
Author Organization The [facility] in [place] Address [address] [place] [address] Care Team Providers Care Grocery Store Manager Name Role Phone Brandyn Alas Primary Care Provider REASON FOR VISIT atb Medications Medication SIG (Take, Route, Frequency, Duration) Notes Start Date End Date Status Doxycycline Monohydrate 100 MG 1 capsule Orally Twice a day for 10 07/21/2024 Active Cefdinir 300 MG 2 capsule Orally onc e a day for 10 days 07/06/2024 Active Mupirocin 2 % 1 application Byproduct Engineer ally Twice a day for 5 days 07/21/2024 Active Encounters Encounter Location Date Provider Diagnosis [address] [address] 07/21/2024 Brandyn Galokatarina Plan Of Treatment Medication Medication Name Sig Start Date Stop Date Notes Doxycycline Monohydrate 100 MG 1 capsule Orally Twice a day for 10 07/21/2024 Cefdinir 300 MG 2 capsule Orally onc e a day for 10 days 07/06/2024 Mupirocin 2 % 1 application Byproduct Engineer ally Twice a day for 5 days 07/21/2024 Progress Notes * Abbey KONG MDOB:1990 (34 yo F)Acc No.[id number]:07/21/2024 Patient: Jarrod AlejandroAbbey Salomon :1990 A ge:34 Y S ex:Female Address:[address] [place] [address], [place], [address] * Refills Start Mupirocin Ointment, 2 %, Externally, 1, 1 application, Twice a day, 5 days, Refills=0 Start Doxycycline Monohydrate Capsule, 100 MG, Orally, 20 Capsule, 1 capsule, Twice a day, 10, Refills=0 Refill Cefdinir Capsule, 300 MG, Orally, 20 Capsule, 2 capsule, once a day, 10 days, Refills=0 * true * Date: Generated for Hailey jordan/Ari/Chance on: 0 07/22/2024 11:59 AM EDT
[2024-07-22 11:56] VITALS: BP 130/82; PULSE 79; TEMP 36.7; O2SAT 97; BMI 30.3
--- OUTSIDE RECORDS SUMMARY | 2024-07-22 11:58 | XMS_ITS | Encounter Summary ---
Author Organization [facility] Address [address] [place] [address] Care Team Providers Care Hooker Operator Name Role Phone Anna Mendez MD Unavailable Unallocated, Noms Provider Primary Care Provi pako Tj Najera Unavailable [phone] Thomas Alas MD Primary Care Provider [phone] Encounter Details Date Type Department Care Team (Late st Contact Info) Description 10/05/2022 Abstract [facility] 112 [facility] [address] [place] [address] Tj Najera PA 112 [facility] [address] [place] [address] Social History Tobacco Use Types Packs/Day Years Used Date Smoking Tobacco: Never Smokeless Tobacco: Never Alcohol Use Standard Drinks/Week Comments Never 0 (1 standard drink = 0.6 oz pur e alcohol) Caffeine: 1-2 cups/day Comments No Sex and Gender Information Value Date Recorded Sex Assigned at Not on file Legal Sex Female 8:33 PM EDT Gender Identity Not on file Sexual Orientation Not on file documented as of this encounter Plan of Treatment Not on file documented as of this encounter Visit Diagnoses Not on filedocumented in this encounter Care Teams Hooker Operator Relationship Specialty Start Date End Date Unallocated, Noms Provider, [address] [address] PCP - General 07/23/22 12/13/23 Tj Najera PA [address] [place] [address] PCP - Medical [place] [employer] 07/16/22 04/24/23 Thomas Alas MD [address] [place] [address] PCP - General Family Medicine 12/14/23 Anna Mendez MD [address] [place] [address] Referring Physician Family Medicine 07/23/22 documented as of this encounter
--- OUTSIDE RECORDS SUMMARY | 2024-07-22 11:58 | XMS_ITS | Encounter Summary ---
Author Organization [facility] Address [address] [place] [address] Care Team Providers Care Autobody Technician Name Role Phone Anna Mendez MD Unavailable Unallocated, Noms Provider Primary Care Provi pako Tj Najera Unavailable [phone] Thomas Alas MD Primary Care Provider [phone] Encounter Details Date Type Department Care Team (Late st Contact Info) Description 09/07/2022 Abstract [facility] 112 [facility] 150 [place] [address] Tj Najera PA 112 [facility] 150 [place] [address] Social History Tobacco Use Types Packs/Day Years [...] on filedocumented in this encounter Care Teams Autobody Technician Relationship Specialty Start Date End Date Unallocated, Noms Provider, [address] [place] [address] PCP - General 07/23/22 12/13/23 Tj Najera PA [address] [place] [address] PCP - Medical [place] [employer] 07/16/22 04/24/23 Thomas Alas MD [address] [place] [address] PCP - General Family Medicine 12/14/23 Anna Mendez MD [address] [place] [address] Referring Physician Family Medicine 07/23/22 documented as of this encounter
--- OUTSIDE RECORDS SUMMARY | 2024-07-22 11:58 | XMS_ITS | Encounter Summary ---
Author Organization [facility] Address [address] [place] [address] Care Team Providers Care Paper Final Inspector Name Role Phone Anna Mendez MD Unavailable Unallocated, Noms Provider Primary Care Provi pako Tj Najera Unavailable [phone] Thomas Alas MD Primary Care Provider [phone] Encounter Details Date Type Department Care Team (Late st Contact Info) Description 11/20/2022 Abstract [facility] 112 [facility] 150 [place] [address] Tj Najera PA 112 [facility] 150 [place] [address] Social History Tobacco Use Types Packs/Day Years [...] on filedocumented in this encounter Care Teams Paper Final Inspector Relationship Specialty Start Date End Date Unallocated, Noms Provider, [address] [place] [address] PCP - General 07/23/22 12/13/23 Tj Najera PA [address] [place] [address] PCP - Medical [place] [employer] 07/16/22 04/24/23 Thomas Alas MD [address] [place] [address] PCP - General Family Medicine 12/14/23 Anna Mendez MD [address] [place] [address] Referring Physician Family Medicine 07/23/22 documented as of this encounter
--- OUTSIDE RECORDS SUMMARY | 2024-07-22 11:58 | XMS_ITS | Encounter Summary ---
Author Organization [facility] Address [address] [place] [address] Care Team Providers Care Vegetable Canner Name Role Phone Anna Mendez MD Unavailable Unallocated, Noms Provider Primary Care Provi pako Tj Najera Unavailable [phone] Thomas Alas MD Primary Care Provider [phone] Encounter Details Date Type Department Care Team (Late st Contact Info) Description 10/30/2022 Abstract [facility] [address] [facility] [address] [place] [address] Tj Najera PA [address] [facility] [address] [place] [address] Social History Tobacco Use Types Packs/Day Years [...] on filedocumented in this encounter Care Teams Vegetable Canner Relationship Specialty Start Date End Date Unallocated, Noms Provider, [address] [place] [address] PCP - General 07/23/22 12/13/23 Tj Najera PA [address] [place] [address] PCP - Medical [employer] 07/16/22 04/24/23 Thomas Alas MD [address] [place] [address] PCP - General Family Medicine 12/14/23 Anna Mendez MD [address] [place] [address] Referring Physician Family Medicine 07/23/22 documented as of this encounter
--- OUTSIDE RECORDS SUMMARY | 2024-07-22 11:59 | XMS_ITS | Continuity of Care Document ---
Author Organization [facility] Address [address] [place] [address] Insurance Providers Payer Plan Claims Address Claims Phone Policy Number Group Number Relation Employer Guarantor Name Guarantor Guarantor Address Guarantor Phone [employer] [address], [place] [address] [id number] Self Abbey Garcia [address] [place] [address] [employer] [address], [place] [address] tel:[phone] [id number] Self Abbey Garcia [address] [place] [address] [facility] [address] [address], [place] [address] tel:[phone] Self Abbey Garcia [address] [place] [address] Problems Unknown Problems Results No Results Allergies, adverse reactions, alerts No known allergies and adverse reactions Medications No administered medications reported Vital Signs Date Vital Result Comment 10/30/2022 Body Height [id number] m Body Weight 83.63461538163 kg Body Mass Index 29.86 kg/m2 Social History No smoking Hx information available
--- OUTSIDE RECORDS SUMMARY | 2024-07-22 11:59 | XMS_ITS | Referral Summary ---
Author Organization [facility] Address [address] [place] [address] Care Team Providers Care Utility Tender Carding Name Role Phone Unavailable Primary Care Provider Unavailabl e Social History Tobacco Use Types Packs/Day Years Used Date Smoking Tobacco: Never Assessed Sex and Gender Information Value Date Recorded Sex Assigned at Not on file Gender Identity Not on file Sexual Orientation Not on file Plan of Treatment Not on file
--- OUTSIDE RECORDS SUMMARY | 2024-07-22 11:59 | XMS_ITS | Encounter Summary ---
Author Organization [facility] tem Address [id number] [address] [place] [address] Care Team Providers Care Strap Cutter Name Role Phone No Pcp, No Pcp Primary Care Provider Unavailabl e Reason for Visit * Reason Comments Med Refill Encounter Details Date Type Department Care Team (Late st Contact Info) Description 09/17/2019 Refill Maternal- Medicine at [facility] [address] [place] [id number] Marc Martines MD [address] [facility], [address] [place] [address] Gestational diabetes mellitus (GDM) controlled on oral hypoglycemic drug, antepartum Social History Tobacco Use Types Packs/Day Years Used Date Smoking Tobacco: Never Smokeless Tobacco: Never Alcohol Use Standard Drinks/Week Comments No 0 (1 standard drink = 0.6 oz pur e alcohol) Childcare Answer Date Recorded Childcare Unknown 07/24/2018 Employment Answer Date Recorded Employment Unknown 07/24/2018 Comments Yes Sex and Gender Information Value Date Recorded Sex Assigned at Not on file Legal Sex Female 11:41 AM EDT Gender Identity Not on file Sexual Orientation Not on file documented as of this encounter Plan of Treatment Not on file documented as of this encounter Visit Diagnoses Diagnosis Gestational diabetes mellitus (GDM) controlled on oral hypoglycemic drug, antepartum documented in this encounter Additional Health Concerns Assessment Noted Time A Body Mass Index follow-up plan has been documented for the patient 03/15/2019 9:20 AM EST documented as of this encounter Care Teams Strap Cutter Relationship Specialty Start Date End Date No Pcp, [place] [address] PCP - General Family Medicine 09/22/17 documented as of this encounter
--- OUTSIDE RECORDS SUMMARY | 2024-07-22 11:59 | XMS_ITS | Patient Health Record ---
Author Organization [facility] Address [address] [place] [address] Care Team Providers Care Court Transcriber Name Role Phone Ashley Bryson Primary Care Provider [phone] Reason For Referral No Information Encounters Encounter Location Date Provider Diagnosis [facility] [address] [place] [address] 04/25/2024 Ashley Bryson Encounter for dental examination and cleaning with abnormal findings Z01.21 ; Other dental procedure status Z98.818 ; Disturbances in tooth eruption K00.6 ; Dental caries on pit and fissure surface penetrating into dentin K02.52 and Cracked tooth K03.81 Assessments Encounter Date Diagnosis (ICD Code) Assessment Notes Treatment Notes Treatment Clinical Notes Section Notes 04/25/2024 Encounter for dental examination and cleaning with abnormal findings (ICD-10 - Z01.21) 04/25/2024 Other dental procedure status (ICD-10 - Z98.818) 04/25/2024 Disturbances in tooth eruption (ICD-10 - K00.6) 04/25/2024 Dental caries on pit and fissure surface penetrating into dentin (ICD-10 - K02.52) 04/25/2024 Cracked tooth (ICD-10 - K03.81) Plan Of Treatment Next Appt Details Provider Name:Ashley ronquillo, 08/15/2024 09:15:00 AM, [address] [place], [address], Provider Name:Kathrin Fields, 11/03/2024 02:15:00 PM, [address] [place], [address], Insurance Providers Payer Name Payer Address Payer Phone Subscriber Number Group Number Insured Name Patient Relationship to Insured Coverage Start Date Coverage End Date Dental [employer] DQ [address] [address] [place] [address] [id number] JUAN KONG Self - patient is the insured 5 [employer] [facility] [employer] [address] [place] [address] [id number] JUAN KONG Self - patient is the insured 5
--- OUTSIDE RECORDS SUMMARY | 2024-07-22 11:59 | XMS_ITS | Clinical Summary ---
Author Organization [facility] Address [address] [address] Care Team Providers Care Truck Body Builder Name Role Phone Unavailable Primary Care Provider Unavailabl e Social History Tobacco Use Types Packs/Day Years Used Date Smoking Tobacco: Never Assessed Sex and Gender Information Value Date Recorded Sex Assigned at Not on file Gender Identity Not on file Sexual Orientation Not on file Plan of Treatment Health Maintenance Due Date Last Done Comments Depression Screening 2001 Varicella Vaccines (1 of 2 - 13+ 2-dose series) 2002 Hepatitis B Vaccines (1 of 3 - 19+ 3-dose series) 2008 Pap Smear 2010 Adult Tetanus 2011 Cervical Cancer Screening 2019 HPV/Cotest 2019 Influenza Vaccine (Season Ended) 2024 Zoster Vaccines (1 of 2) 2039 HIB Vaccines Aged Out No longer eligi ble based on patient's age to complete this topic HPV Vaccines Aged Out No longer eligi ble based on patient's age to complete this topic IPV Vaccines Aged Out No longer eligi ble based on patient's age to complete this topic Meningococcal B Vaccine Aged Out No l onger eligible based on patient's age to complete this topic Meningococcal Vaccine Aged Out No sharla shayy eligible based on patient's age to complete this topic Pneumococcal Vaccine: Pediat rics (0 to 5 Years) and At-Risk Patients (6 to 64 Years) Aged Out No longer eligible b ased on patient's age to complete this topic Rotavirus Vaccines Aged Out No longer eligible based on patient's age to complete this topic
--- OUTSIDE RECORDS SUMMARY | 2024-07-22 11:59 | XMS_ITS | Patient Health Record ---
Author Organization [facility] in [place] Address [address] [place] [address] Care Team Providers Care Civil Engineering Designer Name Role Phone Brandyn Alas Primary Care Provider BRITT ALAS Unavailable [phone] Allergies Allergen (clinical drug ingredient) Drug/Non Drug Allergy documented on EMR Reaction Allergy Type Onset Date Status codeine Codeine vomiting Drug Allergy Active Non-steroidal anti-inflammatory agent (FN) NSAIDs Gastric bypass Drug Allergy Active Results Component Value Reference Range Notes CBC AUTO DIFF Reviewed date:07/29/2023 08:09:14 PM Interpretation: Performing Lab: Notes/Report: [facility] , White Blood Count 12.2 4.0-11.0 10 3/uL Red Blood Count 3.56 4.20-5.40 10 6/uL Hemoglobin 10.6 12.0-16.0 g/dL Hematocrit 32.4 36.0-48.0 % Mean Corpuscular Volume 91.0 81.0-99.0 fL Mean Corpuscular Hemoglobin 29.8 26.7-34.0 pg Mean Corpuscular HGB Conc 32.7 29.9-35.2 g/dL Red Cell Distribution Width 12.9 11.0-15.0 % Platelet Count 305 150-450 10 3/uL Mean Platelet Volume 11.1 9.5-13.5 fL Neutrophils Percent Auto 84.9 43.0-75.0 % Lymphocytes Percent Auto 11.7 20.5-60.0 % Monocytes Percent Auto 3.0 1.7-12.0 % Eosinophils Percent Auto 0.0 0.9-7.0 % Basophils Percent Auto 0.2 0.2-2.0 % Immature Granulocytes Pct Auto 0.2 0.0-0.5 % Neutrophils Absolute Auto 10.4 1.4-6.5 10 3/uL Lymphocytes Absolute Auto 1.4 1.2-3.8 10 3/uL Monocytes Absolute Auto 0.4 0.3-0.8 10 3/uL Eosinophils Absolute Auto 0.0 0.0-0.7 10 3/uL Basophils Absolute Auto 0.0 0.0-0.1 10 3/uL Immature Granulocytes Abs Auto 0.03 0.00-0.03 10 3/uL Performing Lab: see note ML - [facility] LB MAGNESIUM Reviewed date:07/29/2023 08:09:14 PM Interpretation: Performing Lab: Notes/Report: [facility] , Magnesium 2.1 1.8-2.4 mg/dL Performing Lab: see note ML - [facility] LB PHOSPHORUS Reviewed date:07/29/2023 08:09:14 PM Interpretation: Performing Lab: Notes/Report: [facility] , Phosphorus 3.3 2.6-4.7 mg/dL Performing Lab: see note ML - [facility] LB PROF 14(COMP METB) Reviewed date:07/29/2023 08:09:14 PM Interpretation: Performing Lab: Notes/Report: [facility] , Sodium 141 136-145 mmol/L Potassium 3.4 3.5-5.1 mmol/L Chloride 105 98-107 mmol/L Carbon Dioxide 25.6 21.0-32.0 mmol/L Anion Gap 13.8 Glucose 152 74-106 mg/dL Blood Urea Nitrogen 10.0 7.0-18.0 mg/dL Creatinine 0.90 0.55-1.02 mg/dL Estimated GFR ( Shelby >60 >=60 Estimated GFR (Non- Caroline >60 >=60 BUN Creatinine Ratio 11.1 Calcium 8.7 8.5-10.1 mg/dL Bilirubin Total 0.3 0.2-1.0 mg/dL Aspartate Amino Transferase 32 15-37 U/L Alanine Aminotransferase 39 14-59 U/L Alkaline Phosphatase 63 46-116 U/L Total Protein 6.9 6.4-8.2 g/dL Albumin Level 3.6 3.4-5.0 g/dL Globulin 3.3 Albumin Globulin Ratio 1.1 Performing Lab: see note ML - [facility] LB TRIGLYCERIDE Reviewed date:07/29/2023 08:09:14 PM Interpretation: Performing Lab: Notes/Report: [facility] , Triglycerides 44 <=150 mg/dL Performing Lab: see note ML - [facility] LB CBC AUTO DIFF Reviewed date:08/15/2023 03:15:56 PM Interpretation: Performing Lab: Notes/Report: [facility] , White Blood Count 5.3 4.0-11.0 10 3/uL Red Blood Count 3.72 4.20-5.40 10 6/uL Hemoglobin 10.9 12.0-16.0 g/dL Hematocrit 33.2 36.0-48.0 % Mean Corpuscular Volume 89.2 81.0-99.0 fL Mean Corpuscular Hemoglobin 29.3 26.7-34.0 pg Mean Corpuscular HGB Conc 32.8 29.9-35.2 g/dL Red Cell Distribution Width 12.8 11.0-15.0 % Platelet Count 305 150-450 10 3/uL Mean Platelet Volume 11.4 9.5-13.5 fL Neutrophils Percent Auto 75.7 43.0-75.0 % Lymphocytes Percent Auto 19.1 20.5-60.0 % Monocytes Percent Auto 4.0 1.7-12.0 % Eosinophils Percent Auto 0.4 0.9-7.0 % Basophils Percent Auto 0.6 0.2-2.0 % Immature Granulocytes Pct Auto 0.2 0.0-0.5 % Neutrophils Absolute Auto 4.0 1.4-6.5 10 3/uL Lymphocytes Absolute Auto 1.0 1.2-3.8 10 3/uL Monocytes Absolute Auto 0.2 0.3-0.8 10 3/uL Eosinophils Absolute Auto 0.0 0.0-0.7 10 3/uL Basophils Absolute Auto 0.0 0.0-0.1 10 3/uL Immature Granulocytes Abs Auto 0.01 0.00-0.03 10 3/uL Performing Lab: see note ML - [facility] LB MAGNESIUM Reviewed date:08/15/2023 03:15:56 PM Interpretation: Performing Lab: Notes/Report: [facility] , Magnesium 2.0 1.8-2.4 mg/dL Performing Lab: see note ML - [facility] LB PHOSPHORUS Reviewed date:08/15/2023 03:15:56 PM Interpretation: Performing Lab: Notes/Report: [facility] , Phosphorus 3.3 2.6-4.7 mg/dL Performing Lab: see note ML - [facility] LB PROF 14(COMP METB) Reviewed date:08/15/2023 03:15:56 PM Interpretation: Performing Lab: Notes/Report: [facility] , Sodium 140 136-145 mmol/L Potassium 4.1 3.5-5.1 mmol/L Chloride 107 98-107 mmol/L Carbon Dioxide 25.0 21.0-32.0 mmol/L Anion Gap 12.1 Glucose 84 74-106 mg/dL Blood Urea Nitrogen 10.0 7.0-18.0 mg/dL Creatinine 0.77 0.55-1.02 mg/dL Estimated GFR ( Shelby >60 >=60 Estimated GFR (Non- Caroline >60 >=60 BUN Creatinine Ratio 13.0 Calcium 8.6 8.5-10.1 mg/dL Bilirubin Total 0.3 0.2-1.0 mg/dL Aspartate Amino Transferase 36 15-37 U/L Alanine Aminotransferase 34 14-59 U/L Alkaline Phosphatase 67 46-116 U/L Total Protein 6.9 6.4-8.2 g/dL Albumin Level 3.5 3.4-5.0 g/dL Globulin 3.4 Albumin Globulin Ratio 1.0 Performing Lab: see note ML - [facility] LB TRIGLYCERIDE Reviewed date:08/15/2023 03:15:56 PM Interpretation: Performing Lab: Notes/Report: [facility] , Triglycerides 51 <=150 mg/dL Performing Lab: see note ML - [facility] LB AMYLASE Reviewed date:08/15/2023 03:15:56 PM Interpretation: Performing Lab: Notes/Report: [facility] , Amylase 51 25-115 U/L Performing Lab: see note ML - [facility] LB CBC AUTO DIFF Reviewed date:08/15/2023 03:15:56 PM Interpretation: Performing Lab: Notes/Report: [facility] , White Blood Count 4.3 4.0-11.0 10 3/uL Red Blood Count 3.69 4.20-5.40 10 6/uL Hemoglobin 10.7 12.0-16.0 g/dL Hematocrit 32.4 36.0-48.0 % Mean Corpuscular Volume 87.8 81.0-99.0 fL Mean Corpuscular Hemoglobin 29.0 26.7-34.0 pg Mean Corpuscular HGB Conc 33.0 29.9-35.2 g/dL Red Cell Distribution Width 12.6 11.0-15.0 % Platelet Count 238 150-450 10 3/uL Mean Platelet Volume 10.7 9.5-13.5 fL Neutrophils Percent Auto 47.0 43.0-75.0 % Lymphocytes Percent Auto 43.8 20.5-60.0 % Monocytes Percent Auto 6.4 1.7-12.0 % Eosinophils Percent Auto 1.9 0.9-7.0 % Basophils Percent Auto 0.7 0.2-2.0 % Immature Granulocytes Pct Auto 0.2 0.0-0.5 % Neutrophils Absolute Auto 2.0 1.4-6.5 10 3/uL Lymphocytes Absolute Auto 1.9 1.2-3.8 10 3/uL Monocytes Absolute Auto 0.3 0.3-0.8 10 3/uL Eosinophils Absolute Auto 0.1 0.0-0.7 10 3/uL Basophils Absolute Auto 0.0 0.0-0.1 10 3/uL Immature Granulocytes Abs Auto 0.01 0.00-0.03 10 3/uL Performing Lab: see note ML - [facility] LB LIPASE Reviewed date:08/15/2023 03:15:56 PM Interpretation: Performing Lab: Notes/Report: [facility] , Lipase 74.0 16.0-77.0 U/L Performing Lab: see note ML - [facility] LB LIVER PROFILE Reviewed date:08/15/2023 03:15:56 PM Interpretation: Performing Lab: Notes/Report: [facility] , Bilirubin Total 0.4 0.2-1.0 mg/dL Bilirubin Direct 0.1 0.0-0.2 mg/dL Aspartate Amino Transferase 35 15-37 U/L Alanine Aminotransferase 31 14-59 U/L Alkaline Phosphatase 67 46-116 U/L Total Protein 6.6 6.4-8.2 g/dL Albumin Level 3.5 3.4-5.0 g/dL Globulin 3.1 Albumin Globulin Ratio 1.1 Performing Lab: see note - [facility] LB PROF CHEM 8 (BAS METB) Reviewed date:08/15/2023 03:15:56 PM Interpretation: Performing Lab: Notes/Report: [facility] , Sodium 142 136-145 mmol/L Potassium 3.5 3.5-5.1 mmol/L Chloride 106 98-107 mmol/L Carbon Dioxide 25.4 21.0-32.0 mmol/L Anion Gap 14.1 Glucose 92 74-106 mg/dL Blood Urea Nitrogen 9.0 7.0-18.0 mg/dL Creatinine 0.85 0.55-1.02 mg/dL Estimated GFR ( Shelby >60 >=60 Estimated GFR (Non- Caroline >60 >=60 BUN Creatinine Ratio 10.6 Calcium 8.0 8.5-10.1 mg/dL Performing Lab: see note - [facility] UA RANDOM W or MICROSCOPIC Reviewed date:08/15/2023 03:15:56 PM Interpretation: Performing Lab: Notes/Report: [facility] , Color Urine LT. YELLOW YELLOW Clarity Urine CLEAR CLEAR Specific [place] Urine 1.015 1.005-1.025 pH Urine 7.0 5.0-9.0 Protein Urine NEGATIVE NEG/TRACE mg/dL Glucose Urine UA NEGATIVE NEGATIVE mg/dL Bilirubin Urine NEGATIVE NEGATIVE Ketones Urine NEGATIVE NEGATIVE mg/dL Blood Urine NEGATIVE NEGATIVE Nitrite Urine NEGATIVE NEGATIVE Urobilinogen Urine 0.2 0.2-1.0 EU/dL Leukocyte Esterase Urine NEGATIVE NEGATIVE WBC Urine NONE SEEN NONE SEEN #/HPF RBC Urine 0-2 0-2 #/HPF Bacteria Urine TRACE NONE SEEN #/HPF Mucus Urine NONE SEEN NONE SEEN Squamous Epithelial Cell Urine FEW NONE/RARE #/LPF Crystals Seen? None Seen None Seen #/HPF Cast Seen? NONE SEEN NONE SEEN #/LPF Urine Culture Indicated NO Performing Lab: see note - [facility] LB HCG Qualitative* Reviewed date:08/15/2023 03:15:56 PM Interpretation: Performing Lab: Notes/Report: [facility] , HCG Qualitative NEGATIVE NEGATIVE Performing Lab: see note - [facility] XR chest 1V Reviewed date:08/16/2023 05:33:21 PM Interpretation: Performing Lab: Notes/Report: Source Facility: [place] [address] [place] [address] XRay Report Signed Patient: JUAN GARCIA MR#: [id number] : 1990 Acct:[id number] Age/Sex: 33 / F ADM Date: 08/15/23 Loc: [place] 214-[address]: Shaikh Tequila Martinez Ordering Physician: Shaikh Juan Mandel Date of Service: 08/15/23 Procedure(s): XR chest 1V Accession Number(s): [id number] cc: Shaikh Juan Mandel; Britt Alas M.D. [place] [id number] Patient Name: JUAN GARCIA MRN: [id number] date: 1990 Sex: F Assigned Patient Location: OR Current Patient Location: OR Accession/Order Number: [id number] Exam Date: 08/15/2023 16:40 Report Date: 08/15/2023 17:50 At the request of: SHAIKH TEQUILA Procedure: XR chest 1V EXAM: XR chest 1V HISTORY: verify PICC line placement COMPARISON: 06/28/2023. TECHNIQUE: AP upright portable. FINDINGS: Right PICC tip extends into the distal SVC. Interval development of mild pulmonary opacification within the medial left lung base, which may be secondary to atelectasis or pneumonia. The costophrenic angles are clear. Cardiomediastinal silhouette and pulmonary vascularity are within normal limits. XR/XR chest 1V IMPRESSION: 1. Right PICC tip extends into the distal SVC. 2. Development of mild pulmonary opacification within the medial left lung base. This may be secondary to atelectasis or pneumonia. Electronically authenticated by: MARLA NAJERA Date: 08/15/2023 17:50 Dictated By: Marla Najera M.D. Signed By: 08/15/231751 DD/ 49 TD/TT: Experience Designer: [place] [address] XRay Report Signed Patient: JUAN GARCIA MR#: [id number] : 1990 Acct:[id number] Age/Sex: 33 / F ADM Date: 08/15/23 Loc: [place] 214-[address]: Shaikh Tequila Martinez Ordering Physician: Shaikh Juan Mandel Date of Service: 08/15/23 Procedure(s): XR chest 1V Accession Number(s): [id number] cc: Shaikh Lesli Mandel; Britt Alas M.D. [facility] [place] [id number] Patient Name: JUAN GARCIA MRN: [id number] date: 1990 Sex: F Assigned Patient Location: MS Current Patient Loca tion: MS Accession/Order Numb er: [id number] Exam Date: 08/15/2023 16:40 Report Date: 08/15/2023 17:50 At the request of: SHAIKH TEQUILA Procedure: XR chest 1V EXAM: XR chest 1V HISTORY: verify PICC line placement COMPARISON: 06/28/2023. TECHNIQUE: AP uprigh t portable. FINDINGS: Right PICC tip extends into the distal SVC. Interval development of mild pulmonary opacification within the medial left lung base, which may be secondary to atelect asis or pneumonia. The costophrenic angles are clear. Cardiomediastinal silhouette and pulmonary vascularity are within normal limits. X R/XR chest 1V IMPRESSION: 1. Right PICC tip ex tends into the distal SVC. 2. Development of mi ld pulmonary opacification within the medial left lung base. This may be secondary to atelectasis or pneumonia. Electronically authenticated by: MARLA NAJERA Date: 08/15/2023 17:50 Dictated By: Marla Najera M.D. Signed By: 08/15/231751 DD/ 1750 TD/TT: Experience Designer: CBC AUTO DIFF Reviewed date:08/16/2023 05:33:21 PM Interpretation: Performing Lab: Notes/Report: [facility] , White Blood Count 3.8 4.0-11.0 10 3/uL Red Blood Count 3.28 4.20-5.40 10 6/uL Hemoglobin 9.4 12.0-16.0 g/dL Hematocrit 29.5 36.0-48.0 % Mean Corpuscular Volume 89.9 81.0-99.0 fL Mean Corpuscular Hemoglobin 28.7 26.7-34.0 pg Mean Corpuscular HGB Conc 31.9 29.9-35.2 g/dL Red Cell Distribution Width 12.7 11.0-15.0 % Platelet Count 199 150-450 10 3/uL Mean Platelet Volume 10.6 9.5-13.5 fL Neutrophils Percent Auto 41.1 43.0-75.0 % Lymphocytes Percent Auto 45.5 20.5-60.0 % Monocytes Percent Auto 8.8 1.7-12.0 % Eosinophils Percent Auto 3.2 0.9-7.0 % Basophils Percent Auto 1.1 0.2-2.0 % Immature Granulocytes Pct Auto 0.3 0.0-0.5 % Neutrophils Absolute Auto 1.6 1.4-6.5 10 3/uL Lymphocytes Absolute Auto 1.7 1.2-3.8 10 3/uL Monocytes Absolute Auto 0.3 0.3-0.8 10 3/uL Eosinophils Absolute Auto 0.1 0.0-0.7 10 3/uL Basophils Absolute Auto 0.0 0.0-0.1 10 3/uL Immature Granulocytes Abs Auto 0.01 0.00-0.03 10 3/uL Performing Lab: see note ML - [facility] LB PROF 14(COMP METB) Reviewed date:08/16/2023 05:33:21 PM Interpretation: Performing Lab: Notes/Report: [facility] , Sodium 140 136-145 mmol/L Potassium 3.7 3.5-5.1 mmol/L Chloride 108 98-107 mmol/L Carbon Dioxide 24.2 21.0-32.0 mmol/L Anion Gap 11.5 Glucose 82 74-106 mg/dL Blood Urea Nitrogen 8.0 7.0-18.0 mg/dL Creatinine 0.74 0.55-1.02 mg/dL Estimated GFR ( Shebly >60 >=60 Estimated GFR (Non- Caroline >60 >=60 BUN Creatinine Ratio 10.8 Calcium 8.0 8.5-10.1 mg/dL Bilirubin Total 0.3 0.2-1.0 mg/dL Aspartate Amino Transferase 23 15-37 U/L Alanine Aminotransferase 23 14-59 U/L Alkaline Phosphatase 54 46-116 U/L Total Protein 5.5 6.4-8.2 g/dL Albumin Level 2.7 3.4-5.0 g/dL Globulin 2.8 Albumin Globulin Ratio 1.0 Performing Lab: see note [facility] LB UA RANDOM W or MICROSCOPIC Reviewed date:08/16/2023 05:33:21 PM Interpretation: Performing Lab: Notes/Report: [facility] , Color Urine LT. YELLOW YELLOW Clarity Urine CLEAR CLEAR Specific [place] Urine 1.010 1.005-1.025 pH Urine 7.0 5.0-9.0 Protein Urine NEGATIVE NEG/TRACE mg/dL Glucose Urine UA NEGATIVE NEGATIVE mg/dL Bilirubin Urine NEGATIVE NEGATIVE Ketones Urine NEGATIVE NEGATIVE mg/dL Blood Urine NEGATIVE NEGATIVE Nitrite Urine NEGATIVE NEGATIVE Urobilinogen Urine 0.2 0.2-1.0 EU/dL Leukocyte Esterase Urine NEGATIVE NEGATIVE WBC Urine NONE SEEN NONE SEEN #/HPF RBC Urine NONE SEEN 0-2 #/HPF Bacteria Urine SMALL NONE SEEN #/HPF Mucus Urine TRACE NONE SEEN Squamous Epithelial Cell Urine RARE NONE/RARE #/LPF Crystals Seen? None Seen None Seen #/HPF Cast Seen? NONE SEEN NONE SEEN #/LPF Urine Culture Indicated ALREADY ORDERED Performing Lab: see note - [facility] LB XR abdomen min 2V Reviewed date:08/16/2023 05:33:21 PM Interpretation: Performing Lab: Notes/Report: Source Facility: [facility]-[address] [place] [address] [place] [address] XRay Report Signed Patient: JUAN GARCIA MR#: [id number] : 1990 Acct:[id number] Age/Sex: 33 / F ADM Date: 08/15/23 Loc: MS 214-[address]: Britt Alas M.D. Ordering Physician: Britt Alas M.D. Date of Service: 08/16/23 Procedure(s): XR abdomen min 2V Accession Number(s): [id number] cc: Britt Alas M.D. [place] [id number] Patient Name: JUAN GARCIA MRN: [id number] date: 1990 Sex: F Assigned Patient Location: MS Current Patient Location: MS Accession/Order Number: [id number] Exam Date: 08/16/2023 10:55 Report Date: 08/16/2023 11:40 At the request of: BRITT ALAS Procedure: XR abdomen min 2V EXAMINATION: XR abdomen min 2V HISTORY: abd pain , right upper quadrant pain COMPARISON: XR abdomen 06/24/2023, CT abdomen pelvis 07/08/2023 FINDINGS: BOWEL GAS PATTERN: PEG tube projecting over left upper quadrant, unchanged. Normal bowel gas pattern. FREE AIR: None. CALCIFICATIONS: No convincing kidney stones and no stones seen within kidneys on recent CT study. Stable pelvic calcifications favoring phleboliths. BONES: No fracture or visible bone lesion. OTHER: Negative. XR/XR abdomen min 2V IMPRESSION: 1. Unremarkable PEG tube and bowel gas pattern. No suspicious findings. Electronically authenticated by: BRAD BACA Date: 08/16/2023 11:40 Dictated By: Brad Baca M.D. Signed By: 08/16/23 1142 DD/ 1140 TD/TT: Experience Designer: [place] [address] XRay Report Signed Patient: JUAN GARCIA MR#: [id number] : 1990 Acct:[id number] Age/Sex: 33 / F ADM Date: 08/15/23 Loc: MS 214-[address]: Ezra Alas M.D. Ordering Physician: Britt Alas M.D. Date of Service: 08/16/23 Procedure(s): XR abd omen min 2V Accession Number(s): [id number] cc: Britt Alas M.D. [place] [address] Patient Name: JUAN GARCIA MRN: [id number] date: 1990 Sex: F Assigned Patient Location: MS Current Patient Loca tion: MS Accession/Order Numb er: [id number] Exam Date: 08/16/2023 10:55 Report Date: 08/16/2023 11:40 At the request of: BRITT ALAS Procedure: XR abdome n min 2V EXAMINATION: XR abdo men min 2V HISTORY: abd pain , right upper quadrant pain COMPARISON: XR abdom en 06/24/2023, CT abdomen pelvis 07/08/2023 FINDINGS: BOWEL GAS PATTERN: P EG tube projecting over left upper quadrant, unchanged. Normal bowel gas pattern. FREE AIR: None. CALCIFICATIONS: No convincing kidney stones and no stones seen within kidneys on recent CT study. Stable pelvic calcifications favoring phleboliths. BONES: No fracture o r visible bone lesion. OTHER: Negative. X R/XR abdomen min 2V IMPRESSION: 1. Unremarkable PEG tube and bowel gas pattern. No suspicious findings. Electronically authenticated by: BRAD BACA Date: 08/16/2023 11:40 Dictated By: Brad Baca M.D. Signed By: 08/16/23 1142 DD/ 1140 TD/TT: Experience Designer: FL small bowel follow doretha pepper Reviewed date:08/16/2023 05:33:21 PM Interpretation: Performing Lab: Notes/Report: Source Facility: [place] [address] Fluoroscopy Report Signed Patient: JUAN GARCIA MR#: [id number] : 1990 Acct:[id number] Age/Sex: 33 / F ADM Date: 08/15/23 Loc: MS 214-[address]: Britt Alas M.D. Ordering Physician: Britt Alsa M.D. Date of Service: 08/16/23 Procedure(s): FL small bowel follow through Accession Number(s): [id number] cc: Britt Alas M.D. [place] [id number] Patient Name: JUAN GARCIA MRN: [id number] date: 1990 Sex: F Assigned Patient Location: MS Current Patient Location: MS Accession/Order Number: [id number] Exam Date: 08/16/2023 10:55 Report Date: 08/16/2023 15:40 At the request of: BRITT ALAS Procedure: FL small bowel follow through EXAMINATION: FL small bowel follow through HISTORY: abd pain , vomiting COMPARISON: No relevant comparison available. FLUOROSCOPY TIME: Fluoro time measures 0 minutes and 5 still images were obtained. TECHNIQUE: Small bowel series was performed in the usual manner. No bonding supervisor abdominal radiograph was performed. Standard level fluoroscopic mode of operation utilized. FINDINGS: DUODENUM: Not seen. JEJUNUM: Jejunostomy tube within left upper quadrant with filling of the jejunum and ileum with barium contrast.. Slow motility, but contrast does pass into and through the majority of the colon by 4 hours which is within normal limits.. No obstruction or visible lesion. ILEUM: No obstruction or visible lesion. OTHER: Negative. FL/FL small bowel follow through IMPRESSION: 1. Normal bowel caliber and appearance, with slightly slow motility. No obstruction or suspicious findings. 2. Jejunostomy tube in place. Electronically authenticated by: BRAD BACA Date: 08/16/2023 15:40 Dictated By: Brad Baca M.D. Signed By: 08/16/23 1543 DD/ 1540 TD/TT: Experience Designer: [place] [address] Fluoroscopy Report Signed Patient: JUAN GARCIA MR#: [id number] : 1990 Acct:[id number] Age/Sex: 33 / F ADM Date: 08/15/23 Loc: [place] 214-[address]: Ezra Alas M.D. Ordering Physician: Britt Alas M.D. Date of Service: 08/16/23 Procedure(s): FL sma ll bowel follow through Accession Number(s): [id number] cc: Britt Alas M.D. [facility] [place] [id number] Patient Name: JUAN GARCIA MRN: [id number] date: 1990 Sex: F Assigned Patient Location: MS Current Patient Loca tion: MS Accession/Order Numb er: [id number] Exam Date: 08/16/2023 10:55 Report Date: 08/16/2023 15:40 At the request of: BRITT ALAS Procedure: FL small bowel follow through EXAMINATION: FL smal l bowel follow through HISTORY: abd pain , vomiting COMPARISON: No relev ant comparison available. FLUOROSCOPY TIME: Fl uoro time measures 0 minutes and 5 still images were obtained. TECHNIQUE: Small bow el series was performed in the usual manner. No bonding supervisor abdominal radiograph was performed. Standard level fluoroscopic mode of operation utilized. FINDINGS: DUODENUM: Not seen. JEJUNUM: Jejunostomy tube within left upper quadrant with filling of the jejunum and ileum wi th barium contrast.. Slow motility, but contrast does pass into and through the majority of the colon by 4 hours which is within normal limits.. No obstruct ion or visible lesion. ILEUM: No obstructio n or visible lesion. OTHER: Negative. F L/FL small bowel follow through IMPRESSION: 1. Normal bowel shashi marci and appearance, with slightly slow motility. No obstruction or suspi cious findings. 2. Jejunostomy tube in place. Electronically authenticated by: BRAD BACA Date: 08/16/2023 15:40 Dictated By: Brad Baca M.D. Signed By: 08/16/23 1543 DD/ 1540 TD/TT: Experience Designer: CBC AUTO DIFF Reviewed date:08/19/2023 12:28:56 PM Interpretation: Performing Lab: Notes/Report: [facility] , White Blood Count 4.1 4.0-11.0 10 3/uL Red Blood Count 3.67 4.20-5.40 10 6/uL Hemoglobin 10.7 12.0-16.0 g/dL Hematocrit 32.3 36.0-48.0 % Mean Corpuscular Volume 88.0 81.0-99.0 fL Mean Corpuscular Hemoglobin 29.2 26.7-34.0 pg Mean Corpuscular HGB Conc 33.1 29.9-35.2 g/dL Red Cell Distribution Width 12.3 11.0-15.0 % Platelet Count 243 150-450 10 3/uL Mean Platelet Volume 11.4 9.5-13.5 fL Neutrophils Percent Auto 49.0 43.0-75.0 % Lymphocytes Percent Auto 37.9 20.5-60.0 % Monocytes Percent Auto 9.2 1.7-12.0 % Eosinophils Percent Auto 2.7 0.9-7.0 % Basophils Percent Auto 1.0 0.2-2.0 % Immature Granulocytes Pct Auto 0.2 0.0-0.5 % Neutrophils Absolute Auto 2.0 1.4-6.5 10 3/uL Lymphocytes Absolute Auto 1.6 1.2-3.8 10 3/uL Monocytes Absolute Auto 0.4 0.3-0.8 10 3/uL Eosinophils Absolute Auto 0.1 0.0-0.7 10 3/uL Basophils Absolute Auto 0.0 0.0-0.1 10 3/uL Immature Granulocytes Abs Auto 0.01 0.00-0.03 10 3/uL Performing Lab: see note ML - [facility] LB MAGNESIUM Reviewed date:08/19/2023 04:59:32 PM Interpretation: Performing Lab: Notes/Report: [facility] , Magnesium 2.0 1.8-2.4 mg/dL Performing Lab: see note ML - [facility] LB PHOSPHORUS Reviewed date:08/19/2023 04:59:32 PM Interpretation: Performing Lab: Notes/Report: [facility] , Phosphorus 2.8 2.6-4.7 mg/dL Performing Lab: see note ML - [facility] LB PROF 14(COMP METB) Reviewed date:08/19/2023 04:59:32 PM Interpretation: Performing Lab: Notes/Report: [facility] , Sodium 138 136-145 mmol/L Potassium 3.8 3.5-5.1 mmol/L Chloride 103 98-107 mmol/L Carbon Dioxide 25.0 21.0-32.0 mmol/L Anion Gap 13.8 Glucose 86 74-106 mg/dL Blood Urea Nitrogen 9.0 7.0-18.0 mg/dL Creatinine 0.79 0.55-1.02 mg/dL Estimated GFR ( Shelby >60 >=60 Estimated GFR (Non- Caroline >60 >=60 BUN Creatinine Ratio 11.4 Calcium 7.7 8.5-10.1 mg/dL Bilirubin Total 0.3 0.2-1.0 mg/dL Aspartate Amino Transferase 40 15-37 U/L Alanine Aminotransferase 29 14-59 U/L Alkaline Phosphatase 63 46-116 U/L Total Protein 6.3 6.4-8.2 g/dL Albumin Level 3.3 3.4-5.0 g/dL Globulin 3.0 Albumin Globulin Ratio 1.1 Performing Lab: see note ML - [facility] LB TRIGLYCERIDE Reviewed date:08/19/2023 04:59:32 PM Interpretation: Performing Lab: Notes/Report: [facility] , Triglycerides 78 <=150 mg/dL Performing Lab: see note - [facility] LB CBC AUTO DIFF Reviewed date:08/29/2023 11:49:42 AM Interpretation: Performing Lab: Notes/Report: [facility] , White Blood Count 5.7 4.0-11.0 10 3/uL Red Blood Count 3.57 4.20-5.40 10 6/uL Hemoglobin 10.4 12.0-16.0 g/dL Hematocrit 31.8 36.0-48.0 % Mean Corpuscular Volume 89.1 81.0-99.0 fL Mean Corpuscular Hemoglobin 29.1 26.7-34.0 pg Mean Corpuscular HGB Conc 32.7 29.9-35.2 g/dL Red Cell Distribution Width 13.2 11.0-15.0 % Platelet Count 265 150-450 10 3/uL Mean Platelet Volume 12.1 9.5-13.5 fL Neutrophils Percent Auto 81.3 43.0-75.0 % Lymphocytes Percent Auto 15.1 20.5-60.0 % Monocytes Percent Auto 3.2 1.7-12.0 % Eosinophils Percent Auto 0.0 0.9-7.0 % Basophils Percent Auto 0.2 0.2-2.0 % Immature Granulocytes Pct Auto 0.2 0.0-0.5 % Neutrophils Absolute Auto 4.6 1.4-6.5 10 3/uL Lymphocytes Absolute Auto 0.9 1.2-3.8 10 3/uL Monocytes Absolute Auto 0.2 0.3-0.8 10 3/uL Eosinophils Absolute Auto 0.0 0.0-0.7 10 3/uL Basophils Absolute Auto 0.0 0.0-0.1 10 3/uL Immature Granulocytes Abs Auto 0.01 0.00-0.03 10 3/uL Performing Lab: see note ML - [facility] LB MAGNESIUM Reviewed date:08/29/2023 11:49:42 AM Interpretation: Performing Lab: Notes/Report: [facility] , Magnesium 1.9 1.8-2.4 mg/dL Performing Lab: see note ML - [facility] LB PHOSPHORUS Reviewed date:08/29/2023 11:49:42 AM Interpretation: Performing Lab: Notes/Report: [facility] , Phosphorus 3.3 2.6-4.7 mg/dL Performing Lab: see note ML - [facility] LB PROF 14(COMP METB) Reviewed date:08/29/2023 11:49:42 AM Interpretation: Performing Lab: Notes/Report: [facility] , Sodium 142 136-145 mmol/L Potassium 3.5 3.5-5.1 mmol/L Chloride 106 98-107 mmol/L Carbon Dioxide 24.4 21.0-32.0 mmol/L Anion Gap 15.1 Glucose 148 74-106 mg/dL Blood Urea Nitrogen 11.0 7.0-18.0 mg/dL Creatinine 0.76 0.55-1.02 mg/dL Estimated GFR ( Shelby >60 >=60 Estimated GFR (Non- Caroline >60 >=60 BUN Creatinine Ratio 14.5 Calcium 8.2 8.5-10.1 mg/dL Bilirubin Total 0.3 0.2-1.0 mg/dL Aspartate Amino Transferase 45 15-37 U/L Alanine Aminotransferase 41 14-59 U/L Alkaline Phosphatase 65 46-116 U/L Total Protein 6.4 6.4-8.2 g/dL Albumin Level 3.3 3.4-5.0 g/dL Globulin 3.1 Albumin Globulin Ratio 1.1 Performing Lab: see note ML - [facility] LB TRIGLYCERIDE Reviewed date:08/29/2023 11:49:42 AM Interpretation: Performing Lab: Notes/Report: [facility] , Triglycerides 65 <=150 mg/dL Performing Lab: see note ML - [facility] LB CBC AUTO DIFF Reviewed date:09/05/2023 04:34:54 PM Interpretation: Performing Lab: Notes/Report: [facility] , White Blood Count 5.7 4.0-11.0 10 3/uL Red Blood Count 4.02 4.20-5.40 10 6/uL Hemoglobin 11.3 12.0-16.0 g/dL Hematocrit 35.3 36.0-48.0 % Mean Corpuscular Volume 87.8 81.0-99.0 fL Mean Corpuscular Hemoglobin 28.1 26.7-34.0 pg Mean Corpuscular HGB Conc 32.0 29.9-35.2 g/dL Red Cell Distribution Width 13.0 11.0-15.0 % Platelet Count 301 150-450 10 3/uL Mean Platelet Volume 11.0 9.5-13.5 fL Neutrophils Percent Auto 73.4 43.0-75.0 % Lymphocytes Percent Auto 19.9 20.5-60.0 % Monocytes Percent Auto 5.4 1.7-12.0 % Eosinophils Percent Auto 0.7 0.9-7.0 % Basophils Percent Auto 0.3 0.2-2.0 % Immature Granulocytes Pct Auto 0.3 0.0-0.5 % Neutrophils Absolute Auto 4.2 1.4-6.5 10 3/uL Lymphocytes Absolute Auto 1.1 1.2-3.8 10 3/uL Monocytes Absolute Auto 0.3 0.3-0.8 10 3/uL Eosinophils Absolute Auto 0.0 0.0-0.7 10 3/uL Basophils Absolute Auto 0.0 0.0-0.1 10 3/uL Immature Granulocytes Abs Auto 0.02 0.00-0.03 10 3/uL Performing Lab: see note ML - [facility] LB MAGNESIUM Reviewed date:09/05/2023 04:34:54 PM Interpretation: Performing Lab: Notes/Report: [facility] , Magnesium 2.0 1.8-2.4 mg/dL Performing Lab: see note ML - [facility] LB PHOSPHORUS Reviewed date:09/05/2023 04:34:54 PM Interpretation: Performing Lab: Notes/Report: [facility] , Phosphorus 3.0 2.6-4.7 mg/dL Performing Lab: see note - [facility] LB PROF 14(COMP METB) Reviewed date:09/05/2023 04:34:54 PM Interpretation: Performing Lab: Notes/Report: [facility] , Sodium 140 136-145 mmol/L Potassium 4.0 3.5-5.1 mmol/L Chloride 104 98-107 mmol/L Carbon Dioxide 28.0 21.0-32.0 mmol/L Anion Gap 12.0 Glucose 79 74-106 mg/dL Blood Urea Nitrogen 12.0 7.0-18.0 mg/dL Creatinine 0.82 0.55-1.02 mg/dL Estimated GFR ( Shelby >60 >=60 Estimated GFR (Non- Caroline >60 >=60 BUN Creatinine Ratio 14.6 Calcium 8.3 8.5-10.1 mg/dL Bilirubin Total 0.4 0.2-1.0 mg/dL Aspartate Amino Transferase 88 15-37 U/L Alanine Aminotransferase 88 14-59 U/L Alkaline Phosphatase 62 46-116 U/L Total Protein 6.9 6.4-8.2 g/dL Albumin Level 3.6 3.4-5.0 g/dL Globulin 3.3 Albumin Globulin Ratio 1.1 Performing Lab: see note ML - [facility] LB TRIGLYCERIDE Reviewed date:09/05/2023 04:34:54 PM Interpretation: Performing Lab: Notes/Report: [facility] , Triglycerides 126 <=150 mg/dL Performing Lab: see note - [facility] LB US right upper quadrant Reviewed date:09/08/2023 07:45:42 AM Interpretation: Performing Lab: Notes/Report: Source Facility: [facility]-[address] [place] [address] [place] [address] Ultrasound Report Signed Patient: JUAN GARCIA MR#: [id number] : 1990 Acct:[id number] Age/Sex: 33 / F ADM Date: 09/07/23 Loc: US Attending Dr: Britt Alas M.D. Ordering Physician: Britt Alas M.D. Date of Service: 09/07/23 Procedure(s): US right upper quadrant Accession Number(s): [id number] cc: Britt Alas M.D. The [address] [address] Patient Name: JUAN GARCIA MRN: [id number]:[id number] date: 1990 Sex: F Assigned Patient Location: US Current Patient Location: Accession/Order Number: [id number] Exam Date: 09/07/2023 17:04 Report Date: 09/08/2023 07:09 At the request of: BRITT AALS Procedure: US right upper quadrant EXAM: US right upper quadrant HISTORY: RIGHT UPPER QUADRANT PAIN R10.11 COMPARISON: None. TECHNIQUE: Grayscale, color and Doppler FINDINGS: The liver measures 16.3 cm in length. The liver is normal in size, contour and echotexture. Normal hepatopedal flow in the main portal vein with velocity 28 cm/s. Areas of anechoic echogenicity within the liver measuring up to 2.1 cm, simple cysts are favored. The left lobe is poorly visualized due to bowel gas. The gallbladder is surgically absent. The common bile duct measures 4.4 mm, normal. The visualized pancreatic body is normal The right kidney is normal measuring 10.8 x 5.2 x 5.7 cm. 4 mm echogenic foci, nonobstructing nephrolithiasis US/US right upper quadrant IMPRESSION: No acute abnormality Electronically authenticated by: BALDOMERO MARCELO Date: 09/08/2023 07:09 Dictated By: Baldomero Marcelo M.D. Signed By: 09/08/23711 DD/ 8 TD/TT: Experience Designer: [place] [address] Ultrasound Report Signed Patient: JUAN GARCIA MR#: [id number] : 1990 Acct:[id number] Age/Sex: 33 / F ADM Date: 09/07/23 Loc: US Attending Dr: Ezra Alas M.D. Ordering Physician: Britt Alas M.D. Date of Service: 09/07/23 Procedure(s): US rig ht upper quadrant Accession Number(s): [id number] cc: Britt Alas M.D. [place] [address] Patient Name: JUAN GARCIA MRN: [id number] date: 1990 Sex: F Assigned Patient Location: US Current Patient Location: Accession/Order Numb er: [id number] Exam Date: 09/07/2023 17:04 Report Date: 09/08/2023 07:09 At the request of: BRITT ALAS Procedure: US right upper quadrant EXAM: US right upper quadrant HISTORY: RIGHT UPPER QUADRANT PAIN R10.11 COMPARISON: None. TECHNIQUE: Grayscale , color and Doppler FINDINGS: The liver measures 1 6.3 cm in length. The liver is normal in size, contour and echotexture. Normal hepatopedal flow in the main portal vein with velocity 28 cm/s. Areas of anech oic echogenicity within the liver measuring up to 2.1 cm, simple cysts are fav ored. The left lobe is poorly visualized due to bowel gas. The gallbladder is surgically absent. The common bile duct measures 4.4 mm, normal. The visualized pancr eatic body is normal The right kidney is normal measuring 10.8 x 5.2 x 5.7 cm. 4 mm echogenic foci, nonobstructing nephrolithiasis U S/US right upper quadrant IMPRESSION: No acute abnormality Electronically authenticated by: BALDOMERO MARCELO Date: 09/08/2023 07:09 Dictated By: Cruz Marcelo M.D. Signed By: 09/08/23711 DD/ 8 TD/TT: Experience Designer: CT abdomen pelvis wo con Reviewed date:09/09/2023 08:48:02 PM Interpretation: Performing Lab: Notes/Report: Source Facility: [facility]-[address] [place] [address] [place] [address] CT Scan Report Signed Patient: JUAN GARCIA MR#: [id number] : 1990 Acct:[id number] Age/Sex: 33 / F ADM Date: 09/08/23 Loc: CT Attending Dr: Britt Alas M.D. Ordering Physician: Britt Alas M.D. Date of Service: 09/08/23 Procedure(s): CT abdomen pelvis wo con Accession Number(s): [id number] cc: Britt Alas M.D. The [address] [address] Patient Name: JUAN GARCIA MRN: [facility]:[id number] date: 1990 Sex: F Assigned Patient Location: CT Current Patient Location: Accession/Order Number: [id number] Exam Date: 09/08/2023 16:05 Report Date: 09/09/2023 08:14 At the request of: BRITT ALAS Procedure: CT abdomen pelvis wo con EXAMINATION: CT abdomen pelvis wo con HISTORY: gross hematuria R31.0 COMPARISON: 07/08/2023 TECHNIQUE: Axial, Coronal, and Sagittal images were created without IV contrast. Dose reduction techniques were achieved by using automated exposure control and/or adjustment of mA and/or kV according to patient size and/or use of iterative reconstruction technique. FINDINGS: LUNG BASES: No visible pulmonary or pleural disease. LIVER: Numerous hypodensities the larger lesions are likely cysts. The smaller lesions are too small to characterize BILIARY: Surgical clips from cholecystectomy PANCREAS: No lesion, fluid collection, ductal dilatation, or atrophy. SPLEEN: No enlargement or focal lesion. ADRENALS: No mass or enlargement. KIDNEYS: No mass, obstruction, or calcification. BOWEL/MESENTERY: Multiple gastric suture lines. Percutaneous jejunostomy tube. Nonobstructive bowel gas pattern. AORTA/VASCULAR: No aortic aneurysm RETROPERITONEUM: No mass or adenopathy. LYMPH NODES: No adenopathy. URINARY BLADDER: No visible focal wall thickening, lesion, or calculus. PELVIC ORGANS: Hysterectomy ABDOMINAL WALL: No mass or hernia. BONES: No bony lesion or fracture. OTHER: Negative. CT/CT abdomen pelvis wo con IMPRESSION: No CT explanation for the patient's hematuria on a limited noncontrast exam Electronically authenticated by: BALDOMERO MARCELO Date: 09/09/2023 08:14 Dictated By: Baldomero Marcelo M.D. Signed By: 09/09/23816 DD/ 3 TD/TT: Experience Designer: The [address] [address] [address] Scan Report Signed Patient: JUAN GARCIA MR#: [id number] : 1990 Acct:[id number] Age/Sex: 33 / F ADM Date: 09/08/23 Loc: CT Attending Dr: Ezra Alas M.D. Ordering Physician: Britt Alas M.D. Date of Service: 09/08/23 Procedure(s): CT abd omen pelvis wo con Accession Number(s): [id number] cc: Britt Alas M.D. The [address] [address] Patient Name: JUAN GARCIA MRN: [id number] date: 1990 Sex: F Assigned Patient Location: CT Current Patient Location: Accession/Order Numb er: [id number] Exam Date: 09/08/2023 16:05 Report Date: 09/09/2023 08:14 At the request of: BRITT ALAS Procedure: CT abdome n pelvis wo con EXAMINATION: CT abdo men pelvis wo con HISTORY: gross hemat uria R31.0 COMPARISON: 07/08/2023 TECHNIQUE: Axial, Coronal, and Sagittal images were created without IV contrast. Dose reduc tion techniques were achieved by using automated exposure control and/or adjus tment of mA and/or kV according to patient size and/or use of iterative reconstruction technique. FINDINGS: LUNG BASES: No visib le pulmonary or pleural disease. LIVER: Numerous hypodensities the larger lesions are likely cysts. The smaller lesions are too smal l to characterize BILIARY: Surgical cl ips from cholecystectomy PANCREAS: No lesion, fluid collection, ductal dilatation, or atrophy. SPLEEN: No enlargeme nt or focal lesion. ADRENALS: No mass or enlargement. KIDNEYS: No mass, obstruction, or calcification. BOWEL/MESENTERY: Mul tiple gastric suture lines. Percutaneous jejunostomy tube. Nonobstructive bowel gas pattern. AORTA/VASCULAR: No a ortic aneurysm RETROPERITONEUM: No mass or adenopathy. LYMPH NODES: No adenopathy. URINARY BLADDER: No visible focal wall thickening, lesion, or calculus. PELVIC ORGANS: Hysterectomy ABDOMINAL WALL: No m ass or hernia. BONES: No bony lesio n or fracture. OTHER: Negative. C T/CT abdomen pelvis wo con IMPRESSION: No CT explanation fo r the patient's hematuria on a limited noncontrast exam Electronically authenticated by: BALDOMERO MARCELO Date: 09/09/2023 08:14 Dictated By: Cruz Marcelo M.D. Signed By: 09/09/23816 DD/ 3 TD/TT: Experience Designer: CBC AUTO DIFF Reviewed date:09/12/2023 11:35:30 AM Interpretation: Performing Lab: Notes/Report: [facility] , White Blood Count 5.1 4.0-11.0 10 3/uL Red Blood Count 3.89 4.20-5.40 10 6/uL Hemoglobin 11.1 12.0-16.0 g/dL Hematocrit 33.7 36.0-48.0 % Mean Corpuscular Volume 86.6 81.0-99.0 fL Mean Corpuscular Hemoglobin 28.5 26.7-34.0 pg Mean Corpuscular HGB Conc 32.9 29.9-35.2 g/dL Red Cell Distribution Width 13.0 11.0-15.0 % Platelet Count 260 150-450 10 3/uL Mean Platelet Volume 10.9 9.5-13.5 fL Neutrophils Percent Auto 81.0 43.0-75.0 % Lymphocytes Percent Auto 12.9 20.5-60.0 % Monocytes Percent Auto 4.1 1.7-12.0 % Eosinophils Percent Auto 1.0 0.9-7.0 % Basophils Percent Auto 0.8 0.2-2.0 % Immature Granulocytes Pct Auto 0.2 0.0-0.5 % Neutrophils Absolute Auto 4.2 1.4-6.5 10 3/uL Lymphocytes Absolute Auto 0.7 1.2-3.8 10 3/uL Monocytes Absolute Auto 0.2 0.3-0.8 10 3/uL Eosinophils Absolute Auto 0.1 0.0-0.7 10 3/uL Basophils Absolute Auto 0.0 0.0-0.1 10 3/uL Immature Granulocytes Abs Auto 0.01 0.00-0.03 10 3/uL Performing Lab: see note ML - [facility] LB MAGNESIUM Reviewed date:09/12/2023 11:35:30 AM Interpretation: Performing Lab: Notes/Report: [facility] , Magnesium 1.6 1.8-2.4 mg/dL Performing Lab: see note ML - [facility] LB PHOSPHORUS Reviewed date:09/12/2023 11:35:30 AM Interpretation: Performing Lab: Notes/Report: [facility] , Phosphorus 3.2 2.6-4.7 mg/dL Performing Lab: see note ML - [facility] LB PROF 14(COMP METB) Reviewed date:09/12/2023 11:35:30 AM Interpretation: Performing Lab: Notes/Report: [facility] , Sodium 139 136-145 mmol/L Potassium 3.8 3.5-5.1 mmol/L Chloride 106 98-107 mmol/L Carbon Dioxide 24.4 21.0-32.0 mmol/L Anion Gap 12.4 Glucose 89 74-106 mg/dL Blood Urea Nitrogen 12.0 7.0-18.0 mg/dL Creatinine 0.88 0.55-1.02 mg/dL Estimated GFR ( Shelby >60 >=60 Estimated GFR (Non- Caroline >60 >=60 BUN Creatinine Ratio 13.6 Calcium 8.4 8.5-10.1 mg/dL Bilirubin Total 0.4 0.2-1.0 mg/dL Aspartate Amino Transferase 50 15-37 U/L Alanine Aminotransferase 54 14-59 U/L Alkaline Phosphatase 57 46-116 U/L Total Protein 6.6 6.4-8.2 g/dL Albumin Level 3.6 3.4-5.0 g/dL Globulin 3.0 Albumin Globulin Ratio 1.2 Performing Lab: see note ML - [facility] LB TRIGLYCERIDE Reviewed date:09/12/2023 11:35:30 AM Interpretation: Performing Lab: Notes/Report: [facility] , Triglycerides 67 <=150 mg/dL Performing Lab: see note ML - [facility] LB AMYLASE Reviewed date:09/26/2023 10:10:02 AM Interpretation: Performing Lab: Notes/Report: [facility] , Amylase 39 25-115 U/L Performing Lab: see note ML - [facility] LB CBC AUTO DIFF Reviewed date:09/26/2023 10:10:02 AM Interpretation: Performing Lab: Notes/Report: [facility] , White Blood Count 4.9 4.0-11.0 10 3/uL Red Blood Count 3.69 4.20-5.40 10 6/uL Hemoglobin 10.2 12.0-16.0 g/dL Hematocrit 31.1 36.0-48.0 % Mean Corpuscular Volume 84.3 81.0-99.0 fL Mean Corpuscular Hemoglobin 27.6 26.7-34.0 pg Mean Corpuscular HGB Conc 32.8 29.9-35.2 g/dL Red Cell Distribution Width 13.8 11.0-15.0 % Platelet Count 289 150-450 10 3/uL Mean Platelet Volume 10.5 9.5-13.5 fL Neutrophils Percent Auto 54.8 43.0-75.0 % Lymphocytes Percent Auto 35.0 20.5-60.0 % Monocytes Percent Auto 8.0 1.7-12.0 % Eosinophils Percent Auto 1.4 0.9-7.0 % Basophils Percent Auto 0.6 0.2-2.0 % Immature Granulocytes Pct Auto 0.2 0.0-0.5 % Neutrophils Absolute Auto 2.7 1.4-6.5 10 3/uL Lymphocytes Absolute Auto 1.7 1.2-3.8 10 3/uL Monocytes Absolute Auto 0.4 0.3-0.8 10 3/uL Eosinophils Absolute Auto 0.1 0.0-0.7 10 3/uL Basophils Absolute Auto 0.0 0.0-0.1 10 3/uL Immature Granulocytes Abs Auto 0.01 0.00-0.03 10 3/uL Performing Lab: see note ML - [facility] LB LIPASE Reviewed date:09/26/2023 10:10:02 AM Interpretation: Performing Lab: Notes/Report: [facility] , Lipase 35.0 16.0-77.0 U/L Performing Lab: see note ML - [facility] LB LIVER PROFILE Reviewed date:09/26/2023 10:10:02 AM Interpretation: Performing Lab: Notes/Report: [facility] , Bilirubin Total 0.4 0.2-1.0 mg/dL Bilirubin Direct 0.1 0.0-0.2 mg/dL Aspartate Amino Transferase 31 15-37 U/L Alanine Aminotransferase 33 14-59 U/L Alkaline Phosphatase 58 46-116 U/L Total Protein 6.5 6.4-8.2 g/dL Albumin Level 3.6 3.4-5.0 g/dL Globulin 2.9 Albumin Globulin Ratio 1.2 Performing Lab: see note ML - [facility] LB PROF CHEM 8 (BAS METB) Reviewed date:09/26/2023 10:10:02 AM Interpretation: Performing Lab: Notes/Report: [facility] , Sodium 139 136-145 mmol/L Potassium 3.1 3.5-5.1 mmol/L Chloride 103 98-107 mmol/L Carbon Dioxide 28.2 21.0-32.0 mmol/L Anion Gap 10.9 Glucose 85 74-106 mg/dL Blood Urea Nitrogen 7.0 7.0-18.0 mg/dL Creatinine 0.80 0.55-1.02 mg/dL Estimated GFR ( Shelby >60 >=60 Estimated GFR (Non- Caroline >60 >=60 BUN Creatinine Ratio 8.8 Calcium 8.6 8.5-10.1 mg/dL Performing Lab: see note ML - [facility] LB UA (CLEAN or CATCH) MANAGER ACTION or M ICRO IF IND. Reviewed date:09/26/2023 10:10:02 AM Interpretation: Performing Lab: Notes/Report: [facility] , Color Urine LT. YELLOW YELLOW Clarity Urine SL CLOUDY CLEAR Specific [place] Urine 1.010 1.005-1.025 pH Urine 7.0 5.0-9.0 Protein Urine NEGATIVE NEG/TRACE mg/dL Glucose Urine UA NEGATIVE NEGATIVE mg/dL Bilirubin Urine NEGATIVE NEGATIVE Ketones Urine NEGATIVE NEGATIVE mg/dL Blood Urine NEGATIVE NEGATIVE Nitrite Urine NEGATIVE NEGATIVE Urobilinogen Urine 0.2 0.2-1.0 EU/dL Leukocyte Esterase Urine NEGATIVE NEGATIVE Urine Microscopic Indicated NO Performing Lab: see note ML - [facility] LB ECG 12 lead Reviewed date:09/27/2023 08:56:29 AM Interpretation: Performing Lab: Notes/Report: Source Facility: [facility]-[address] [place] [address] [place] [address] Electrocardiograph Report Signed Patient: JUAN GARCIA MR#: [id number] : 1990 Acct:[id number] Age/Sex: 33 / F ADM Date: 09/23/23 Loc: ER Attending Dr: Ordering Physician: Leslie Terrazas M.D. 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 Signed By: 09/25/23721 DD/ 1836 TD/TT: Experience Designer: [place] [address] Electrocardiograph Report Signed Patient: JUAN GARCIA MR#: [id number] : 1990 Acct:[id number] Age/Sex: 33 / F ADM Date: 09/23/23 Loc: ER Attending Dr: Ordering Physician: Leslie Terrazas M.D. 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 Signed By: 09/25/2322 DD/ 35 TD/TT: Experience Designer: CT abdomen pelvis w con Reviewed date:11/07/2023 09:01:52 PM Interpretation: Performing Lab: Notes/Report: Source Facility: [place] [address] CT Scan Report Signed Patient: JUAN GARCIA MR#: [id number] : 1990 Acct:[id number] Age/Sex: 33 / F ADM Date: 11/07/23 Loc: ER Attending Dr: Ordering Physician: Leslie Terrazas M.D. Date of Service: 11/07/23 Procedure(s): CT abdomen pelvis w con Accession Number(s): [id number] cc: Britt Alas M.D. [place] [address] Patient Name: JUAN GARCIA MRN: [facility]:[id number] date: 1990 Sex: F Assigned Patient Location: ED.MAIN Current Patient Location: ER Accession/Order Number: [id number] Exam Date: 11/07/2023 11:52 Report Date: 11/07/2023 13:01 At the request of: LESLIE TERRAZAS Procedure: CT abdomen pelvis w con EXAM: CT abdomen pelvis w con HISTORY: Pain at feeding tube site COMPARISON: 09/23/2023 TECHNIQUE: Axial CT imaging was performed through the abdomen and pelvis with intravenous contrast. Multiplanar reformats were performed. Dose reduction techniques were achieved by using automated exposure control and/or adjustment of mA and/or kV according to patient size and/or use of iterative reconstruction technique. FINDINGS: Lung bases: Lung bases are clear. No pleural effusion. GI upper: Isabel-en-Y gastric bypass is noted with intact anastomosis. Jejunostomy tube is unchanged in the position. No fat stranding or fluid is noted in the location of the tube. Liver: Normal size and contour. Unchanged cystic structures throughout the liver. Gallbladder: Cholecystectomy. Biliary system: No intra or extrahepatic biliary ductal dilatation. Spleen: Normal size. Pancreas: Unremarkable. Adrenal glands: Normal adrenal glands. Kidneys/ureters: Normal contours. No hydronephrosis. No nephrolithiasis or ureterolithiasis. Vessels: No aneurysm. Lymph Nodes: No lymphadenopathy. Small bowel: No wall thickening or dilatation. Colon: No wall thickening or dilatation. Moderate volume stool burden. Appendix: Appendectomy. Peritoneal cavity: No free fluid or pneumoperitoneum. Lower : Hysterectomy. Bones: No acute bony abnormality. Soft tissues: No acute finding. Additional findings: None. CT/CT abdomen pelvis w con IMPRESSION: Jejunostomy tube is unchanged in the position. No fat stranding or fluid is noted in the location of the tube. Constipation. Electronically authenticated by: SOFY GREER Date: 11/07/2023 13:01 Dictated By: Sofy Greer M.D. Signed By: 11/07/23 1304 DD/ 1301 TD/TT: Experience Designer: [place] [address] CT Scan Report Signed Patient: JUAN GARCIA MR#: [id number] : 1990 Acct:[id number] Age/Sex: 33 / F ADM Date: 11/07/23 Loc: ER Attending Dr: Ordering Physician: Leslie Terrazas M.D. Date of Service: 11/07/23 Procedure(s): CT abd omen pelvis w con Accession Number(s): [id number] cc: Britt Alas M.D. [place] [id number] Patient Name: JUAN GARCIA MRN: [id number] date: 1990 Sex: F Assigned Patient Location: ED.MAIN Current Patient Loca tion: ER Accession/Order Numb er: [id number] Exam Date: 11/07/2023 11:52 Report Date: 11/07/2023 13:01 At the request of: LESLIE TERRAZAS Procedure: CT abdome n pelvis w con EXAM: CT abdomen pel vis w con HISTORY: Pain at fee ding tube site COMPARISON: 09/23/2023 TECHNIQUE: Axial CT imaging was performed through the abdomen and pelvis with intravenous contrast . Multiplanar reformats were performed. Dose reduction techniques were achi eved by using automated exposure control and/or adjustment of mA and/or kV acco rding to patient size and/or use of iterative reconstruction technique. FINDINGS: Lung bases: Lung bas es are clear. No pleural effusion. GI upper: Isabel-en-Y gastric bypass is noted with intact anastomosis. Jejunostomy tube is unchanged in the position. No fat stranding or fluid is noted in the locatio n of the tube. Liver: Normal size a nd contour. Unchanged cystic structures throughout the liver. Gallbladder: Cholecystectomy. Biliary system: No i ntra or extrahepatic biliary ductal dilatation. Spleen: Normal size. Pancreas: Unremarkable. Adrenal glands: Norm al adrenal glands. Kidneys/ureters: Nor mal contours. No hydronephrosis. No nephrolithiasis or ureterolithiasis. Vessels: No aneurysm. Lymph Nodes: No lymphadenopathy. Small bowel: No wall thickening or dilatation. Colon: No wall thick ening or dilatation. Moderate volume stool burden. Appendix: Appendectomy. Peritoneal cavity: N o free fluid or pneumoperitoneum. Lower : Hysterectomy. Bones: No acute bony abnormality. Soft tissues: No acu te finding. Additional findings: None. C T/CT abdomen pelvis w con IMPRESSION: Jejunostomy tube is unchanged in the position. No fat stranding or fluid is noted in the locatio n of the tube. Constipation. Electronically authenticated by: SOFY GREER Date: 11/07/2023 13:01 Dictated By: Sofy Greer M.D. Signed By: 11/07/23 1304 DD/ 1301 TD/TT: Experience Designer: CBC AUTO DIFF Reviewed date:09/27/2023 08:56:29 AM Interpretation: Performing Lab: Notes/Report: [facility] , White Blood Count 8.5 4.0-11.0 10 3/uL Red Blood Count 3.94 4.20-5.40 10 6/uL Hemoglobin 10.9 12.0-16.0 g/dL Hematocrit 34.7 36.0-48.0 % Mean Corpuscular Volume 88.1 81.0-99.0 fL Mean Corpuscular Hemoglobin 27.7 26.7-34.0 pg Mean Corpuscular HGB Conc 31.4 29.9-35.2 g/dL Red Cell Distribution Width 14.3 11.0-15.0 % Platelet Count 294 150-450 10 3/uL Mean Platelet Volume 11.0 9.5-13.5 fL Neutrophils Percent Auto 81.8 43.0-75.0 % Lymphocytes Percent Auto 11.4 20.5-60.0 % Monocytes Percent Auto 4.8 1.7-12.0 % Eosinophils Percent Auto 1.3 0.9-7.0 % Basophils Percent Auto 0.5 0.2-2.0 % Immature Granulocytes Pct Auto 0.2 0.0-0.5 % Neutrophils Absolute Auto 7.0 1.4-6.5 10 3/uL Lymphocytes Absolute Auto 1.0 1.2-3.8 10 3/uL Monocytes Absolute Auto 0.4 0.3-0.8 10 3/uL Eosinophils Absolute Auto 0.1 0.0-0.7 10 3/uL Basophils Absolute Auto 0.0 0.0-0.1 10 3/uL Immature Granulocytes Abs Auto 0.02 0.00-0.03 10 3/uL Performing Lab: see note ML - [facility] LB MAGNESIUM Reviewed date:09/27/2023 08:56:29 AM Interpretation: Performing Lab: Notes/Report: [facility] , Magnesium 1.8 1.8-2.4 mg/dL Performing Lab: see note ML - [facility] LB PHOSPHORUS Reviewed date:09/27/2023 08:56:29 AM Interpretation: Performing Lab: Notes/Report: [facility] , Phosphorus 2.4 2.6-4.7 mg/dL Performing Lab: see note - [facility] LB PROF 14(COMP METB) Reviewed date:09/27/2023 08:56:29 AM Interpretation: Performing Lab: Notes/Report: [facility] , Sodium 139 136-145 mmol/L Potassium 4.0 3.5-5.1 mmol/L Chloride 104 98-107 mmol/L Carbon Dioxide 25.3 21.0-32.0 mmol/L Anion Gap 13.7 Glucose 93 74-106 mg/dL Blood Urea Nitrogen 6.0 7.0-18.0 mg/dL Creatinine 0.82 0.55-1.02 mg/dL Estimated GFR ( Shelby >60 >=60 Estimated GFR (Non- Caroline >60 >=60 BUN Creatinine Ratio 7.3 Calcium 8.6 8.5-10.1 mg/dL Bilirubin Total 0.3 0.2-1.0 mg/dL Aspartate Amino Transferase 26 15-37 U/L Alanine Aminotransferase 30 14-59 U/L Alkaline Phosphatase 59 46-116 U/L Total Protein 6.4 6.4-8.2 g/dL Albumin Level 3.6 3.4-5.0 g/dL Globulin 2.8 Albumin Globulin Ratio 1.3 Performing Lab: see note [facility] LB TRIGLYCERIDE Reviewed date:09/27/2023 08:56:29 AM Interpretation: Performing Lab: Notes/Report: [facility] , Triglycerides 47 <=150 mg/dL Performing Lab: see note [facility] LB CBC AUTO DIFF Reviewed date:10/10/2023 09:42:37 PM Interpretation: Performing Lab: Notes/Report: [facility] , White Blood Count 4.9 4.0-11.0 10 3/uL Red Blood Count 3.78 4.20-5.40 10 6/uL Hemoglobin 10.3 12.0-16.0 g/dL Hematocrit 32.6 36.0-48.0 % Mean Corpuscular Volume 86.2 81.0-99.0 fL Mean Corpuscular Hemoglobin 27.2 26.7-34.0 pg Mean Corpuscular HGB Conc 31.6 29.9-35.2 g/dL Red Cell Distribution Width 14.7 11.0-15.0 % Platelet Count 230 150-450 10 3/uL Mean Platelet Volume 11.4 9.5-13.5 fL Neutrophils Percent Auto 77.4 43.0-75.0 % Lymphocytes Percent Auto 18.1 20.5-60.0 % Monocytes Percent Auto 3.5 1.7-12.0 % Eosinophils Percent Auto 0.2 0.9-7.0 % Basophils Percent Auto 0.4 0.2-2.0 % Immature Granulocytes Pct Auto 0.4 0.0-0.5 % Neutrophils Absolute Auto 3.8 1.4-6.5 10 3/uL Lymphocytes Absolute Auto 0.9 1.2-3.8 10 3/uL Monocytes Absolute Auto 0.2 0.3-0.8 10 3/uL Eosinophils Absolute Auto 0.0 0.0-0.7 10 3/uL Basophils Absolute Auto 0.0 0.0-0.1 10 3/uL Immature Granulocytes Abs Auto 0.02 0.00-0.03 10 3/uL Performing Lab: see note - [facility] LB MAGNESIUM Reviewed date:10/10/2023 09:42:37 PM Interpretation: Performing Lab: Notes/Report: NURSE DROP OFF FROM [facility] , Magnesium 1.8 1.8-2.4 mg/dL Performing Lab: see note - [facility] LB PHOSPHORUS Reviewed date:10/10/2023 09:42:37 PM Interpretation: Performing Lab: Notes/Report: NURSE DROP OFF FROM [facility] , Phosphorus 2.4 2.6-4.7 mg/dL Performing Lab: see note [facility] LB PROF 14(COMP METB) Reviewed date:10/10/2023 09:42:37 PM Interpretation: Performing Lab: Notes/Report: NURSE DROP OFF FROM [facility] , Sodium 136 136-145 mmol/L Potassium 3.5 3.5-5.1 mmol/L Chloride 102 98-107 mmol/L Carbon Dioxide 26.5 21.0-32.0 mmol/L Anion Gap 11.0 Glucose 123 74-106 mg/dL Blood Urea Nitrogen 9.0 7.0-18.0 mg/dL Creatinine 0.81 0.55-1.02 mg/dL Estimated GFR ( Shelby >60 >=60 Estimated GFR (Non- Caroline >60 >=60 BUN Creatinine Ratio 11.1 Calcium 8.3 8.5-10.1 mg/dL Bilirubin Total 0.3 0.2-1.0 mg/dL Aspartate Amino Transferase 27 15-37 U/L Alanine Aminotransferase 25 14-59 U/L Alkaline Phosphatase 79 46-116 U/L Total Protein 6.5 6.4-8.2 g/dL Albumin Level 3.5 3.4-5.0 g/dL Globulin 3.0 Albumin Globulin Ratio 1.2 Performing Lab: see note ML - [facility] LB TRIGLYCERIDE Reviewed date:10/10/2023 09:42:37 PM Interpretation: Performing Lab: Notes/Report: NURSE DROP OFF FROM [facility] , Triglycerides 132 <=150 mg/dL Performing Lab: see note - [facility] LB CBC AUTO DIFF Reviewed date:10/24/2023 08:22:27 PM Interpretation: Performing Lab: Notes/Report: [facility] , White Blood Count 5.9 4.0-11.0 10 3/uL Red Blood Count 3.87 4.20-5.40 10 6/uL Hemoglobin 10.5 12.0-16.0 g/dL Hematocrit 33.0 36.0-48.0 % Mean Corpuscular Volume 85.3 81.0-99.0 fL Mean Corpuscular Hemoglobin 27.1 26.7-34.0 pg Mean Corpuscular HGB Conc 31.8 29.9-35.2 g/dL Red Cell Distribution Width 14.6 11.0-15.0 % Platelet Count 380 150-450 10 3/uL Mean Platelet Volume 11.0 9.5-13.5 fL Neutrophils Percent Auto 80.1 43.0-75.0 % Lymphocytes Percent Auto 16.4 20.5-60.0 % Monocytes Percent Auto 2.9 1.7-12.0 % Eosinophils Percent Auto 0.0 0.9-7.0 % Basophils Percent Auto 0.3 0.2-2.0 % Immature Granulocytes Pct Auto 0.3 0.0-0.5 % Neutrophils Absolute Auto 4.7 1.4-6.5 10 3/uL Lymphocytes Absolute Auto 1.0 1.2-3.8 10 3/uL Monocytes Absolute Auto 0.2 0.3-0.8 10 3/uL Eosinophils Absolute Auto 0.0 0.0-0.7 10 3/uL Basophils Absolute Auto 0.0 0.0-0.1 10 3/uL Immature Granulocytes Abs Auto 0.02 0.00-0.03 10 3/uL Performing Lab: see note ML - [facility] LB MAGNESIUM Reviewed date:10/24/2023 08:22:27 PM Interpretation: Performing Lab: Notes/Report: [facility] , Magnesium 1.5 1.8-2.4 mg/dL Performing Lab: see note ML - [facility] LB PHOSPHORUS Reviewed date:10/24/2023 08:22:27 PM Interpretation: Performing Lab: Notes/Report: [facility] , Phosphorus 2.4 2.6-4.7 mg/dL Performing Lab: see note ML - [facility] LB PROF 14(COMP METB) Reviewed date:10/24/2023 08:22:27 PM Interpretation: Performing Lab: Notes/Report: [facility] , Sodium 140 136-145 mmol/L Potassium 3.6 3.5-5.1 mmol/L Chloride 105 98-107 mmol/L Carbon Dioxide 26.4 21.0-32.0 mmol/L Anion Gap 12.2 Glucose 153 74-106 mg/dL Blood Urea Nitrogen 6.0 7.0-18.0 mg/dL Creatinine 0.72 0.55-1.02 mg/dL Estimated GFR ( Shelby >60 >=60 Estimated GFR (Non- Caroline >60 >=60 BUN Creatinine Ratio 8.3 Calcium 8.4 8.5-10.1 mg/dL Bilirubin Total 0.3 0.2-1.0 mg/dL Aspartate Amino Transferase 43 15-37 U/L Alanine Aminotransferase 54 14-59 U/L Alkaline Phosphatase 73 46-116 U/L Total Protein 6.5 6.4-8.2 g/dL Albumin Level 3.4 3.4-5.0 g/dL Globulin 3.1 Albumin Globulin Ratio 1.1 Performing Lab: see note ML - [facility] LB TRIGLYCERIDE Reviewed date:10/24/2023 08:22:27 PM Interpretation: Performing Lab: Notes/Report: [facility] , Triglycerides 123 <=150 mg/dL Performing Lab: see note ML - [facility] LB CBC AUTO DIFF Reviewed date:10/28/2023 09:28:45 PM Interpretation: Performing Lab: Notes/Report: [facility] , White Blood Count 5.1 4.0-11.0 10 3/uL Red Blood Count 3.96 4.20-5.40 10 6/uL Hemoglobin 10.5 12.0-16.0 g/dL Hematocrit 33.5 36.0-48.0 % Mean Corpuscular Volume 84.6 81.0-99.0 fL Mean Corpuscular Hemoglobin 26.5 26.7-34.0 pg Mean Corpuscular HGB Conc 31.3 29.9-35.2 g/dL Red Cell Distribution Width 14.5 11.0-15.0 % Platelet Count 317 150-450 10 3/uL Mean Platelet Volume 11.4 9.5-13.5 fL Neutrophils Percent Auto 80.6 43.0-75.0 % Lymphocytes Percent Auto 15.5 20.5-60.0 % Monocytes Percent Auto 2.9 1.7-12.0 % Eosinophils Percent Auto 0.2 0.9-7.0 % Basophils Percent Auto 0.6 0.2-2.0 % Immature Granulocytes Pct Auto 0.2 0.0-0.5 % Neutrophils Absolute Auto 4.1 1.4-6.5 10 3/uL Lymphocytes Absolute Auto 0.8 1.2-3.8 10 3/uL Monocytes Absolute Auto 0.2 0.3-0.8 10 3/uL Eosinophils Absolute Auto 0.0 0.0-0.7 10 3/uL Basophils Absolute Auto 0.0 0.0-0.1 10 3/uL Immature Granulocytes Abs Auto 0.01 0.00-0.03 10 3/uL Performing Lab: see note ML - [facility] LB COPPER, SERUM or PLASMA Reviewed date:11/11/2023 06:52:40 PM Interpretation: Performing Lab: Notes/Report: [facility] , Copper Level 94 80-158 ug/dL This test was developed and its performance characteristics determined by [facility]. It has not been cleared or approved by the Food and Drug Administration. Detection Limit = 5 Performing Lab: see note - [facility] LB CRP Reviewed date:10/28/2023 09:28:45 PM Interpretation: Performing Lab: Notes/Report: [facility] DROP OFF [facility] , C Reactive Protein <0.50 <=0.50 mg/dL Performing Lab: see note ML - [facility] LB FERRITIN Reviewed date:10/28/2023 09:28:45 PM Interpretation: Performing Lab: Notes/Report: [facility] , Ferritin 6.0 8.0-252.0 ng/mL Performing Lab: see note ML - [facility] LB IRON AND TIBC Reviewed date:10/28/2023 09:28:45 PM Interpretation: Performing Lab: Notes/Report: [facility] , Iron 48.0 50.0-170.0 ug/dL Total Iron Binding Capacity 364.0 250.0-450.0 ug/dL Percent Iron Saturation 13.2 Performing Lab: see note ML - [facility] LB LAB TESTING Reviewed date:11/01/2023 08:50:20 PM Interpretation: Performing Lab: Notes/Report: [id number] Selenium, Serum or Plasma [facility] , Miscellaneous Test COMMENT . Test Ordered: [id number] Selenium, Serum/Plasma Selenium, Serum/Plasma 111 ug/L Reference Range: 93-198 This test was developed and its performance characteristics determined by [facility]. It has not been cleared or approved by the Food and Drug Administration. Performed at: [facility] [address] [id number] Oceanic Sciences Professor: Suhas Ring MD, Phone: [phone] Performed at: [facility] [address] [id number] Oceanic [employer] Professor: Daron Almanza PhD, Phone: [phone] Performing Lab: see note [facility]UM Reviewed date:10/28/2023 09:28:45 PM Interpretation: Performing Lab: Notes/Report: [facility] DROP OFF [facility] , Magnesium 2.1 1.8-2.4 mg/dL Performing Lab: see note ML - [facility] LB PHOSPHORUS Reviewed date:10/28/2023 09:28:45 PM Interpretation: Performing Lab: Notes/Report: [facility] DROP OFF [facility] , Phosphorus 2.5 2.6-4.7 mg/dL Performing Lab: see note - [facility] LB PROF 14(COMP METB) Reviewed date:10/28/2023 09:28:45 PM Interpretation: Performing Lab: Notes/Report: [facility] DROP OFF [facility] , Sodium 136 136-145 mmol/L Potassium 4.2 3.5-5.1 mmol/L Chloride 102 98-107 mmol/L Carbon Dioxide 32.0 21.0-32.0 mmol/L Anion Gap 6.2 Glucose 85 74-106 mg/dL Blood Urea Nitrogen 14.0 7.0-18.0 mg/dL Creatinine 0.69 0.55-1.02 mg/dL Estimated GFR ( Shelby >60 >=60 Estimated GFR (Non- Caroline >60 >=60 BUN Creatinine Ratio 20.3 Calcium 8.4 8.5-10.1 mg/dL Bilirubin Total 0.4 0.2-1.0 mg/dL Aspartate Amino Transferase 29 15-37 U/L Alanine Aminotransferase 37 14-59 U/L Alkaline Phosphatase 64 46-116 U/L Total Protein 6.5 6.4-8.2 g/dL Albumin Level 3.5 3.4-5.0 g/dL Globulin 3.0 Albumin Globulin Ratio 1.2 Performing Lab: see note - [facility] LB VITAMIN D 25 [place] Reviewed date:10/28/2023 09:28:45 PM Interpretation: Performing Lab: Notes/Report: [facility] , Vitamin D 38.2 <20 ng/mL Vit D deficient 20-<30 ng/mL Vit D insufficient 30-100 ng/mL Vit D sufficient >100 ng/mL Potential Toxicity Performing Lab: see note - [facility] LB ZINC SERUM OR PLASMA Reviewed date:11/11/2023 06:52:40 PM Interpretation: Performing Lab: Notes/Report: [facility] , Zinc Level 58 44-115 ug/dL This test was developed and its performance characteristics determined by [facility]. It has not been cleared or approved by the Food and Drug Administration. Detection Limit = 5 Performed at: [address] [id number] Oceanic Sciences Professor: Suhas Ring MD, Phone: [phone] Performing Lab: see note [facility] LB Vitamin B6, Plasma Reviewed date:11/03/2023 05:35:59 PM Interpretation: Performing Lab: Notes/Report: [facility] , Vitamin B6, Plasma 12.2 3.4-65.2 ug/L This test was developed and its performance characteristics determined by [facility]. It has not been cleared or approved by the Food and Drug Administration. Deficiency: <3.4 Marginal: 3.4 - 5.1 Adequate: >5.1 Performed at: [address] [place] [id number] Oceanic Sciences Professor: Suhas Ring MD, Phone: [phone] Performing Lab: see note [facility] LB Transferrin Reviewed date:10/31/2023 10:33:37 AM Interpretation: Performing Lab: Notes/Report: [facility] Transferrin 317 192-364 mg/dL Performed at: [address] [id number] Oceanic Sciences Professor: Daron Almanza PhD, Phone: [phone] Performing Lab: see note [facility] LB Methylmalonic Acid, Serum Reviewed date:11/01/2023 08:50:20 PM Interpretation: Performing Lab: Notes/Report: [facility] Methylmalonic Acid, Serum 142 0-378 nmol/L This test was developed and its performance characteristics determined by [facility]. It has not been cleared or approved by the Food and Drug Administration. Performed at: [address] [id number] Oceanic Sciences Professor: Suhas Ring MD, Phone: [phone] Performing Lab: see note [facility] Vitamin B12 Reviewed date:11/01/2023 08:50:20 PM Interpretation: Performing Lab: Notes/Report: [facility] , Vitamin B12 365 497-6271 pg/mL Performed at: [address] [id number] Oceanic Sciences Professor: Daron Almanza PhD, Phone: [phone] Performing Lab: see note [facility] Vitamin A, Serum Reviewed date:11/11/2023 06:52:40 PM Interpretation: Performing Lab: Notes/Report: [facility] , Vitamin A, Serum 50.1 18.9-57.3 ug/dL Reference intervals for vitamin A determined from [facility] internal studies. Individuals with vitamin A less than 20 ug/dL are considered vitamin A deficient and those with serum concentrations less than 10 ug/dL are considered severely deficient. This test was developed and its performance characteristics determined by [facility]. It has not been cleared or approved by the Food and Drug Administration. Performed at: [address] [id number] Oceanic Sciences Professor: Suhas Ring MD, Phone: [phone] Performing Lab: see note [facility] LB LAB TESTING Reviewed date:11/03/2023 06:27:21 PM Interpretation: Performing Lab: Notes/Report: [id number] Chromium, Plasma [facility] , Miscellaneous Test COMMENT . Test Ordered: [id number] Chromium, Plasma Chromium, Plasma 1.0 ug/L [facility] Reference Range: 0.1-2.1 This test was developed and its performance characteristics determined by [facility]. It has not been cleared or approved by the Food and Drug Administration. Detection Limit = 0.1 Performed at: [facility] [address], [place], [place] [id number] Oceanic Sciences Professor: Olga Michael MD, Phone: [phone] Performed at: [address] [id number] Oceanic Sciences Professor: Daron Almanza PhD, Phone: [phone] Performing Lab: see note [facility] LB LAB TESTING Reviewed date:11/05/2023 08:17:18 AM Interpretation: Performing Lab: Notes/Report: [id number] Fatty Acid Profile, Essential [facility] , Miscellaneous Test COMMENT . Test Ordered: [id number] Fatty Acid Profile, Essential Interp, Fatty Acids Profile SP Normal Y8 Reference Range: . Normal fatty acid profile. Results reviewed and interpreted by Cash Jurado, PhD INTERPRETIVE INFORMATION: Fatty Acids Profile, Essential Ser/Plas This test does not screen for disorders of peroxisomal biogenesis/function. This test was developed and its performance characteristics determined by [facility]. It has not been cleared or approved by the [place] Food and Drug Administration. This test was performed in a CLIA certified laboratory and is intended for clinical purposes. Arachidic Acid, C20:0 31 nmol/mL Y8 Reference Range: 8-43 Arachidonic Acid, C20:4w6 506 nmol/mL Y8 Reference Range: 310-1420 DHA, C22:6w3 77 nmol/mL Y8 Reference Range: 45-365 DPA, C22:5w3 47 nmol/mL Y8 Reference Range: 13-75 DPA, C22:5w6 14 nmol/mL Y8 Reference Range: 6-55 DTA, C22:4w6 20 nmol/mL Y8 Reference Range: 10-40 Docosenoic Acid, C22:1 4 nmol/mL Y8 Reference Range: 1-10 EPA, C20:5w3 39 nmol/mL Y8 Reference Range: 8-130 Hexadecenoic Acid, C16:1w9 46 nmol/mL Y8 Reference Range: 14-95 Lauric Acid, C12:0 18 nmol/mL Y8 Reference Range: 1-200 Linoleic Acid, C18:2w6 2675 nmol/mL Y8 Reference Range: 9713-2435 a-Linolenic Acid, C18:3w3 67 nmol/mL Y8 Reference Range: 20-200 o-t-Zlitifcth C20:3w6 144 nmol/mL Y8 Reference Range: 45-340 g-Linolenic Acid, C18:3w6 37 nmol/mL Y8 Reference Range: 10-120 Weldon Acid, C20:3w9 9 nmol/mL Y8 Reference Range: 1-35 Myristic Acid, C14:0 135 nmol/mL Y8 Reference Range: 20-520 Nervonic Acid, C24:1w9 143 nmol/mL Y8 Reference Range: 35-145 Oleic Acid, C18:1w9 1881 nmol/mL Y8 Reference Range: 740-3900 Palmitic Acid, C16:0 2563 nmol/mL Y8 Reference Range: 4128-6522 Palmitoleic Acid, C16:1w7 143 nmol/mL Y8 Reference Range: 35-580 Stearic Acid, C18:0 727 nmol/mL Y8 Reference Range: 280-1250 Vaccenic Acid, C18:1w7 123 nmol/mL Y8 Reference Range: 50-250 Triene Tetraene Ratio 0.018 Y8 Reference Range: 0.004-0.051 Total Saturated Acid 3.5 mmol/L Y8 Reference Range: 1.5-5.3 Total Monounsaturated Acid 2.3 mmol/L Y8 Reference Range: 0.9-4.7 Total Polyunsaturated Ac 3.6 mmol/L Y8 Reference Range: 2.1-6.2 Total w3 0.23 mmol/L Y8 Reference Range: 0.12-0.55 Total w6 3.4 mmol/L Y8 Reference Range: 1.8-5.7 Total Fatty Acids 9.4 mmol/L Y8 Reference Range: 4.5-15.0 EER Fatty Acids Profile, [facility] See Note Y8 Reference Range: . Authorized individuals can access the [employer] Enhanced Report using the following link: [email or web address] . Y8 Reference Range: . Performed at: [address] [facility] [address] [id number] Oceanic Sciences Professor: Kirt Murphy [facility], Phone: [phone] Performed at: [address] [id number] Oceanic Sciences Professor: Daron Almanza PhD, Phone: [phone] Performing Lab: see note [facility] LB LAB TESTING Reviewed date:11/08/2023 02:17:18 PM Interpretation: Performing Lab: Notes/Report: [id number] Vitamin E (a and ? Tocopherol) [facility] , Miscellaneous Test COMMENT . Test Ordered: [id number] Vitamin E Vitamin E(Alpha Tocopherol) 9.1 mg/L Reference Range: 5.9-19.4 This test was developed and its performance characteristics determined by [facility]. It has not been cleared or approved by the Food and Drug Administration. Vitamin E(Gamma Tocopherol) 0.7 mg/L Reference Range: 0.7-4.9 This test was developed and its performance characteristics determined by [facility]. It has not been cleared or approved by the Food and Drug Administration. Reference intervals for alpha and gamma-tocopherol determined from National Health and Nutrition Examination Survey, 5744-3282. Individuals with alpha-tocopherol levels less than 5.0 mg/L are considered vitamin E deficient. Performed at: [address] [id number] Oceanic Sciences Professor: Suhas Ring MD, Phone: [phone] Performed at: [address] [id number] Ocean[employer] Professor: Daron Almanza PhD, Phone: [phone] Performing Lab: see note [facility] LB LAB TESTING Reviewed date:11/10/2023 08:23:17 PM Interpretation: Performing Lab: Notes/Report: [id number] Manganese, Whole Blood [facility] , Miscellaneous Test COMMENT . Test Ordered: [id number] Manganese, Blood Manganese, Blood Comment: ug/L [facility] Reference Range: 8.0-18.7 Manganese, Blood Result: 11 mcg/L Reference Range: 5-18 mcg/L Detection limit = 5.0 mcg/L Analysis performed by Inductively Coupled Plasma/Mass Spectrometry (ICPMS). Specimens for elemental testing should be collected in certified metal-free containers. Elevated results for elemental testing may be caused by environmental contamination at the time of specimen collection and should be interpreted accordingly. It is recommended that unexpected elevated results be verified by testing another specimen in a trace metal free container. This test was developed and its performance characteristics determined by [facility]. This test has not been cleared or approved by the U.S. Food and Drug Administration. This test was developed and its performance characteristics determined by [facility]. It has not been cleared or approved by the Food and Drug Administration. Performed at: [address] [id number] Oceanic Sciences Professor: Will Hatch PhD, Phone: [phone] Performed at: [address] [id number] Ocean[employer] Sciences Professor: Daron Almanza PhD, Phone: [phone] Performing Lab: see note - [facility] LB AMYLASE Reviewed date:11/05/2023 12:57:51 PM Interpretation: Performing Lab: Notes/Report: [facility] , Amylase 46 25-115 U/L Performing Lab: see note ML - [facility] LB BNP Reviewed date:11/05/2023 12:57:51 PM Interpretation: Performing Lab: Notes/Report: [facility] , NT Pro B Type Natriuretic Pept 36.0 <=450.0 pg/mL Performing Lab: see note ML - [facility] LB CBC AUTO DIFF Reviewed date:11/05/2023 12:57:51 PM Interpretation: Performing Lab: Notes/Report: [facility] , White Blood Count 6.6 4.0-11.0 10 3/uL Red Blood Count 3.90 4.20-5.40 10 6/uL Hemoglobin 10.2 12.0-16.0 g/dL Hematocrit 32.6 36.0-48.0 % Mean Corpuscular Volume 83.6 81.0-99.0 fL Mean Corpuscular Hemoglobin 26.2 26.7-34.0 pg Mean Corpuscular HGB Conc 31.3 29.9-35.2 g/dL Red Cell Distribution Width 14.6 11.0-15.0 % Platelet Count 311 150-450 10 3/uL Mean Platelet Volume 11.1 9.5-13.5 fL Neutrophils Percent Auto 53.6 43.0-75.0 % Lymphocytes Percent Auto 29.9 20.5-60.0 % Monocytes Percent Auto 12.4 1.7-12.0 % Eosinophils Percent Auto 2.7 0.9-7.0 % Basophils Percent Auto 1.2 0.2-2.0 % Immature Granulocytes Pct Auto 0.2 0.0-0.5 % Neutrophils Absolute Auto 3.6 1.4-6.5 10 3/uL Lymphocytes Absolute Auto 2.0 1.2-3.8 10 3/uL Monocytes Absolute Auto 0.8 0.3-0.8 10 3/uL Eosinophils Absolute Auto 0.2 0.0-0.7 10 3/uL Basophils Absolute Auto 0.1 0.0-0.1 10 3/uL Immature Granulocytes Abs Auto 0.01 0.00-0.03 10 3/uL Performing Lab: see note ML - [facility] LB LIPASE Reviewed date:11/05/2023 12:57:52 PM Interpretation: Performing Lab: Notes/Report: [facility] , Lipase 46.0 16.0-77.0 U/L Performing Lab: see note ML - [facility] LB PROF 14(COMP METB) Reviewed date:11/05/2023 12:57:52 PM Interpretation: Performing Lab: Notes/Report: [facility] , Sodium 137 136-145 mmol/L Potassium 3.1 3.5-5.1 mmol/L Chloride 101 98-107 mmol/L Carbon Dioxide 26.0 21.0-32.0 mmol/L Anion Gap 13.1 Glucose 58 74-106 mg/dL Blood Urea Nitrogen 14.0 7.0-18.0 mg/dL Creatinine 0.88 0.55-1.02 mg/dL Estimated GFR ( [place] >60 >=60 Estimated GFR (Non- Acroline >60 >=60 BUN Creatinine Ratio 15.9 Calcium 8.0 8.5-10.1 mg/dL Bilirubin Total 0.3 0.2-1.0 mg/dL Aspartate Amino Transferase 24 15-37 U/L Alanine Aminotransferase 23 14-59 U/L Alkaline Phosphatase 71 46-116 U/L Total Protein 6.4 6.4-8.2 g/dL Albumin Level 3.5 3.4-5.0 g/dL Globulin 2.9 Albumin Globulin Ratio 1.2 Performing Lab: see note ML - [facility] Troponin I High Sensitivity Reviewed date:11/05/2023 12:57:52 PM Interpretation: Performing Lab: Notes/Report: [facility] , Troponin I High Sensitivity 4.0 4.0-51.3 pg/mL CUT-OFF POINTS HAVE BEEN ESTABLISHED BASED ON THE FOURTH UNIVERSAL DEFINITION OF MYOCARDIAL INFARCTION. THE UPPER REFERENCE LIMIT (URL) OF TROPONIN, DEFINED THE 99TH PERCENTILE OF cTnI DISTRIBUTION IN A REFERENCE POPULATION, HAS BEEN CONFIRMED THE DECISION THRESHOLD FOR [place] DIAGNOSIS. 99TH PERCENTILE = 51.4 PG/ML NOTE: HIGH-SENSITIVITY TROPONIN ASSAY IS NOT INTENDED TO BE USED IN ISOLATION BUT SHOULD BE INTERPRETED IN CONJUNCTION WITH OTHER DIAGNOSTIC AND CLINICAL INFORMATION. Performing Lab: see note ML - [facility] LB AMYLASE Reviewed date:11/07/2023 09:01:52 PM Interpretation: Performing Lab: Notes/Report: [facility] , Amylase 36 25-115 U/L Performing Lab: see note - [facility] CBC AUTO DIFF Reviewed date:11/07/2023 09:01:52 PM Interpretation: Performing Lab: Notes/Report: [facility] , White Blood Count 3.9 4.0-11.0 10 3/uL Red Blood Count 3.80 4.20-5.40 10 6/uL Hemoglobin 9.9 12.0-16.0 g/dL Hematocrit 31.5 36.0-48.0 % Mean Corpuscular Volume 82.9 81.0-99.0 fL Mean Corpuscular Hemoglobin 26.1 26.7-34.0 pg Mean Corpuscular HGB Conc 31.4 29.9-35.2 g/dL Red Cell Distribution Width 14.3 11.0-15.0 % Platelet Count 240 150-450 10 3/uL Mean Platelet Volume 10.8 9.5-13.5 fL Neutrophils Percent Auto 43.4 43.0-75.0 % Lymphocytes Percent Auto 39.4 20.5-60.0 % Monocytes Percent Auto 10.7 1.7-12.0 % Eosinophils Percent Auto 4.9 0.9-7.0 % Basophils Percent Auto 1.3 0.2-2.0 % Immature Granulocytes Pct Auto 0.3 0.0-0.5 % Neutrophils Absolute Auto 1.7 1.4-6.5 10 3/uL Lymphocytes Absolute Auto 1.5 1.2-3.8 10 3/uL Monocytes Absolute Auto 0.4 0.3-0.8 10 3/uL Eosinophils Absolute Auto 0.2 0.0-0.7 10 3/uL Basophils Absolute Auto 0.1 0.0-0.1 10 3/uL Immature Granulocytes Abs Auto 0.01 0.00-0.03 10 3/uL Performing Lab: see note ML - [facility] LIPASE Reviewed date:11/07/2023 09:01:52 PM Interpretation: Performing Lab: Notes/Report: [facility] , Lipase 28.0 16.0-77.0 U/L Performing Lab: see note ML - [facility] LB LIVER PROFILE Reviewed date:11/07/2023 09:01:52 PM Interpretation: Performing Lab: Notes/Report: [facility] , Bilirubin Total 0.4 0.2-1.0 mg/dL Bilirubin Direct 0.1 0.0-0.2 mg/dL Aspartate Amino Transferase 27 15-37 U/L Alanine Aminotransferase 23 14-59 U/L Alkaline Phosphatase 64 46-116 U/L Total Protein 6.4 6.4-8.2 g/dL Albumin Level 3.6 3.4-5.0 g/dL Globulin 2.8 Albumin Globulin Ratio 1.3 Performing Lab: see note ML - [facility] LB PROF CHEM 8 (BAS METB) Reviewed date:11/07/2023 09:01:52 PM Interpretation: Performing Lab: Notes/Report: [facility] , Sodium 134 136-145 mmol/L Potassium 3.5 3.5-5.1 mmol/L Chloride 101 98-107 mmol/L Carbon Dioxide 28.9 21.0-32.0 mmol/L Anion Gap 7.6 Glucose 97 74-106 mg/dL Blood Urea Nitrogen 9.0 7.0-18.0 mg/dL Creatinine 0.81 0.55-1.02 mg/dL Estimated GFR ( [place] >60 >=60 Estimated GFR (Non- [place] >60 >=60 BUN Creatinine Ratio 11.1 Calcium 8.2 8.5-10.1 mg/dL Performing Lab: see note ML - [facility] LB Aerobic Culture Reviewed date:11/11/2023 03:26:07 PM Interpretation: Performing Lab: Notes/Report: [facility] , Aerobic Culture See Below For Report Aerobic Culture Organism: Staphylococcus aureus : O:GNR Isolated O:PSAV Isolated O:STAAUR Isolated Organism: 2.2 Antibiotic Interpretation SANDHYA Status Amikacin Amikacin S F Cefepime Cefepime S F Ceftazidime Ceftazidime S F Ciprofloxacin Ciprofloxacin S F Gentamicin Gentamicin S F Imipenem Imipenem S F Levofloxacin Levofloxacin S F Meropenem Meropenem S F Piperacillin Piperacillin S F Ticarcillin Ticarcillin S F Tobramycin Tobramycin S F Organism: 2.3 Antibiotic Interpretation SANDHYA Status Ciprofloxacin Ciprofloxacin S F Erythromycin Erythromycin S F Gentamicin Gentamicin S F Levofloxacin Levofloxacin S F Linezolid Linezolid S F Moxifloxacin Moxifloxacin S F Oxacillin Oxacillin S F Penicillin Penicillin R F Quinupristin/Dalfopri stin Quinupristin/Dalfopri stin S F Rifampin Rifampin S F Tetracycline Tetracycline S F Trimethoprim/Sulfamet hoxazole Trimethoprim/Sulfamet hoxazole S F Vancomycin Vancomycin S F Clindamycin Clindamycin S F Aerobic Culture *ABNORMAL* Aerobic Culture Organism: Staphylococcus aureus : O:GNR Isolated O:PSAV Isolated O:STAAUR Isolated Organism: 2.2 Antibiotic Interpretation SANDHYA Status Amikacin Amikacin S F Cefepime Cefepime S F Ceftazidime Ceftazidime S F Ciprofloxacin Ciprofloxacin S F Gentamicin Gentamicin S F Imipenem Imipenem S F Levofloxacin Levofloxacin S F Meropenem Meropenem S F Piperacillin Piperacillin S F Ticarcillin Ticarcillin S F Tobramycin Tobramycin S F Organism: 2.3 Antibiotic Interpretation SANDHYA Status Ciprofloxacin Ciprofloxacin S F Erythromycin Erythromycin S F Gentamicin Gentamicin S F Levofloxacin Levofloxacin S F Linezolid Linezolid S F Moxifloxacin Moxifloxacin S F Oxacillin Oxacillin S F Penicillin Penicillin R F Quinupristin/Dalfopri stin Quinupristin/Dalfopri stin S F Rifampin Rifampin S F Tetracycline Tetracycline S F Trimethoprim/Sulfamet hoxazole Trimethoprim/Sulfamet hoxazole S F Vancomycin Vancomycin S F Clindamycin Clindamycin S F Aerobic Culture Heavy growth Aerobic Culture Organism: Staphylococcus aureus : O:GNR Isolated O:PSAV Isolated O:STAAUR Isolated Organism: 2.2 Antibiotic Interpretation SANDHYA Status Amikacin Amikacin S F Cefepime Cefepime S F Ceftazidime Ceftazidime S F Ciprofloxacin Ciprofloxacin S F Gentamicin Gentamicin S F Imipenem Imipenem S F Levofloxacin Levofloxacin S F Meropenem Meropenem S F Piperacillin Piperacillin S F Ticarcillin Ticarcillin S F Tobramycin Tobramycin S F Organism: 2.3 Antibiotic Interpretation SANDHYA Status Ciprofloxacin Ciprofloxacin S F Erythromycin Erythromycin S F Gentamicin Gentamicin S F Levofloxacin Levofloxacin S F Linezolid Linezolid S F Moxifloxacin Moxifloxacin S F Oxacillin Oxacillin S F Penicillin Penicillin R F Quinupristin/Dalfopri stin Quinupristin/Dalfopri stin S F Rifampin Rifampin S F Tetracycline Tetracycline S F Trimethoprim/Sulfamet hoxazole Trimethoprim/Sulfamet hoxazole S F Vancomycin Vancomycin S F Clindamycin Clindamycin S F Aerobic Culture Organism: Gram negat magalis jeffery : Aerobic Culture Organism: Staphylococcus aureus : O:GNR Isolated O:PSAV Isolated O:STAAUR Isolated Organism: 2.2 Antibiotic Interpretation SANDHYA Status Amikacin Amikacin S F Cefepime Cefepime S F Ceftazidime Ceftazidime S F Ciprofloxacin Ciprofloxacin S F Gentamicin Gentamicin S F Imipenem Imipenem S F Levofloxacin Levofloxacin S F Meropenem Meropenem S F Piperacillin Piperacillin S F Ticarcillin Ticarcillin S F Tobramycin Tobramycin S F Organism: 2.3 Antibiotic Interpretation SANDHYA Status Ciprofloxacin Ciprofloxacin S F Erythromycin Erythromycin S F Gentamicin Gentamicin S F Levofloxacin Levofloxacin S F Linezolid Linezolid S F Moxifloxacin Moxifloxacin S F Oxacillin Oxacillin S F Penicillin Penicillin R F Quinupristin/Dalfopri stin Quinupristin/Dalfopri stin S F Rifampin Rifampin S F Tetracycline Tetracycline S F Trimethoprim/Sulfamet hoxazole Trimethoprim/Sulfamet hoxazole S F Vancomycin Vancomycin S F Clindamycin Clindamycin S F Aerobic Culture *ABNORMAL* Aerobic Culture Organism: Staphylococcus aureus : O:GNR Isolated O:PSAV Isolated O:STAAUR Isolated Organism: 2.2 Antibiotic Interpretation SANDHYA Status Amikacin Amikacin S F Cefepime Cefepime S F Ceftazidime Ceftazidime S F Ciprofloxacin Ciprofloxacin S F Gentamicin Gentamicin S F Imipenem Imipenem S F Levofloxacin Levofloxacin S F Meropenem Meropenem S F Piperacillin Piperacillin S F Ticarcillin Ticarcillin S F Tobramycin Tobramycin S F Organism: 2.3 Antibiotic Interpretation SANDHYA Status Ciprofloxacin Ciprofloxacin S F Erythromycin Erythromycin S F Gentamicin Gentamicin S F Levofloxacin Levofloxacin S F Linezolid Linezolid S F Moxifloxacin Moxifloxacin S F Oxacillin Oxacillin S F Penicillin Penicillin R F Quinupristin/Dalfopri stin Quinupristin/Dalfopri stin S F Rifampin Rifampin S F Tetracycline Tetracycline S F Trimethoprim/Sulfamet hoxazole Trimethoprim/Sulfamet hoxazole S F Vancomycin Vancomycin S F Clindamycin Clindamycin S F Aerobic Culture Light growth Aerobic Culture Organism: Staphylococcus aureus : O:GNR Isolated O:PSAV Isolated O:BRIE Isolated Organism: 2.2 Antibiotic Interpretation SANDHYA Status Amikacin Amikacin S F Cefepime Cefepime S F Ceftazidime Ceftazidime S F Ciprofloxacin Ciprofloxacin S F Gentamicin Gentamicin S F Imipenem Imipenem S F Levofloxacin Levofloxacin S F Meropenem Meropenem S F Piperacillin Piperacillin S F Ticarcillin Ticarcillin S F Tobramycin Tobramycin S F Organism: 2.3 Antibiotic Interpretation SANDHYA Status Ciprofloxacin Ciprofloxacin S F Erythromycin Erythromycin S F Gentamicin Gentamicin S F Levofloxacin Levofloxacin S F Linezolid Linezolid S F Moxifloxacin Moxifloxacin S F Oxacillin Oxacillin S F Penicillin Penicillin R F Quinupristin/Dalfopri stin Quinupristin/Dalfopri stin S F Rifampin Rifampin S F Tetracycline Tetracycline S F Trimethoprim/Sulfamet hoxazole Trimethoprim/Sulfamet hoxazole S F Vancomycin Vancomycin S F Clindamycin Clindamycin S F Aerobic Culture Gram negative jeffery Aerobic Culture Organism: Staphylococcus aureus : O:GNR Isolated O:PSAV Isolated O:STAAUR Isolated Organism: 2.2 Antibiotic Interpretation SANDHYA Status Amikacin Amikacin S F Cefepime Cefepime S F Ceftazidime Ceftazidime S F Ciprofloxacin Ciprofloxacin S F Gentamicin Gentamicin S F Imipenem Imipenem S F Levofloxacin Levofloxacin S F Meropenem Meropenem S F Piperacillin Piperacillin S F Ticarcillin Ticarcillin S F Tobramycin Tobramycin S F Organism: 2.3 Antibiotic Interpretation SANDHYA Status Ciprofloxacin Ciprofloxacin S F Erythromycin Erythromycin S F Gentamicin Gentamicin S F Levofloxacin Levofloxacin S F Linezolid Linezolid S F Moxifloxacin Moxifloxacin S F Oxacillin Oxacillin S F Penicillin Penicillin R F Quinupristin/Dalfopri stin Quinupristin/Dalfopri stin S F Rifampin Rifampin S F Tetracycline Tetracycline S F Trimethoprim/Sulfamet hoxazole Trimethoprim/Sulfamet hoxazole S F Vancomycin Vancomycin S F Clindamycin Clindamycin S F Aerobic Culture Staphylococcus aureus Aerobic Culture Organism: Staphylococcus aureus : O:GNR Isolated O:PSAV Isolated O:STAAUR Isolated Organism: 2.2 Antibiotic Interpretation SANDHYA Status Amikacin Amikacin S F Cefepime Cefepime S F Ceftazidime Ceftazidime S F Ciprofloxacin Ciprofloxacin S F Gentamicin Gentamicin S F Imipenem Imipenem S F Levofloxacin Levofloxacin S F Meropenem Meropenem S F Piperacillin Piperacillin S F Ticarcillin Ticarcillin S F Tobramycin Tobramycin S F Organism: 2.3 Antibiotic Interpretation SANDHYA Status Ciprofloxacin Ciprofloxacin S F Erythromycin Erythromycin S F Gentamicin Gentamicin S F Levofloxacin Levofloxacin S F Linezolid Linezolid S F Moxifloxacin Moxifloxacin S F Oxacillin Oxacillin S F Penicillin Penicillin R F Quinupristin/Dalfopri stin Quinupristin/Dalfopri stin S F Rifampin Rifampin S F Tetracycline Tetracycline S F Trimethoprim/Sulfamet hoxazole Trimethoprim/Sulfamet hoxazole S F Vancomycin Vancomycin S F Clindamycin Clindamycin S F Aerobic Culture Organism: Staphyloco ccus aureus : Aerobic Culture Organism: Staphylococcus aureus : O:GNR Isolated O:PSAV Isolated O:STAAUR Isolated Organism: 2.2 Antibiotic Interpretation SANDHYA Status Amikacin Amikacin S F Cefepime Cefepime S F Ceftazidime Ceftazidime S F Ciprofloxacin Ciprofloxacin S F Gentamicin Gentamicin S F Imipenem Imipenem S F Levofloxacin Levofloxacin S F Meropenem Meropenem S F Piperacillin Piperacillin S F Ticarcillin Ticarcillin S F Tobramycin Tobramycin S F Organism: 2.3 Antibiotic Interpretation SANDHYA Status Ciprofloxacin Ciprofloxacin S F Erythromycin Erythromycin S F Gentamicin Gentamicin S F Levofloxacin Levofloxacin S F Linezolid Linezolid S F Moxifloxacin Moxifloxacin S F Oxacillin Oxacillin S F Penicillin Penicillin R F Quinupristin/Dalfopri stin Quinupristin/Dalfopri stin S F Rifampin Rifampin S F Tetracycline Tetracycline S F Trimethoprim/Sulfamet hoxazole Trimethoprim/Sulfamet hoxazole S F Vancomycin Vancomycin S F Clindamycin Clindamycin S F Aerobic Culture *ABNORMAL* Aerobic Culture Organism: Staphylococcus aureus : O:GNR Isolated O:PSAV Isolated O:STAAUR Isolated Organism: 2.2 Antibiotic Interpretation SANDHYA Status Amikacin Amikacin S F Cefepime Cefepime S F Ceftazidime Ceftazidime S F Ciprofloxacin Ciprofloxacin S F Gentamicin Gentamicin S F Imipenem Imipenem S F Levofloxacin Levofloxacin S F Meropenem Meropenem S F Piperacillin Piperacillin S F Ticarcillin Ticarcillin S F Tobramycin Tobramycin S F Organism: 2.3 Antibiotic Interpretation SANDHYA Status Ciprofloxacin Ciprofloxacin S F Erythromycin Erythromycin S F Gentamicin Gentamicin S F Levofloxacin Levofloxacin S F Linezolid Linezolid S F Moxifloxacin Moxifloxacin S F Oxacillin Oxacillin S F Penicillin Penicillin R F Quinupristin/Dalfopri stin Quinupristin/Dalfopri stin S F Rifampin Rifampin S F Tetracycline Tetracycline S F Trimethoprim/Sulfamet hoxazole Trimethoprim/Sulfamet hoxazole S F Vancomycin Vancomycin S F Clindamycin Clindamycin S F Aerobic Culture Based on susceptibil ity to oxacillin this isolate would be Aerobic Culture Organism: Staphylococcus aureus : O:GNR Isolated O:PSAV Isolated O:STAAUR Isolated Organism: 2.2 Antibiotic Interpretation SANDHYA Status Amikacin Amikacin S F Cefepime Cefepime S F Ceftazidime Ceftazidime S F Ciprofloxacin Ciprofloxacin S F Gentamicin Gentamicin S F Imipenem Imipenem S F Levofloxacin Levofloxacin S F Meropenem Meropenem S F Piperacillin Piperacillin S F Ticarcillin Ticarcillin S F Tobramycin Tobramycin S F Organism: 2.3 Antibiotic Interpretation SANDHYA Status Ciprofloxacin Ciprofloxacin S F Erythromycin Erythromycin S F Gentamicin Gentamicin S F Levofloxacin Levofloxacin S F Linezolid Linezolid S F Moxifloxacin Moxifloxacin S F Oxacillin Oxacillin S F Penicillin Penicillin R F Quinupristin/Dalfopri stin Quinupristin/Dalfopri stin S F Rifampin Rifampin S F Tetracycline Tetracycline S F Trimethoprim/Sulfamet hoxazole Trimethoprim/Sulfamet hoxazole S F Vancomycin Vancomycin S F Clindamycin Clindamycin S F Aerobic Culture susceptible to: Aerobic Culture Organism: Staphylococcus aureus : O:GNR Isolated O:PSAV Isolated O:STAAUR Isolated Organism: 2.2 Antibiotic Interpretation SANDHYA Status Amikacin Amikacin S F Cefepime Cefepime S F Ceftazidime Ceftazidime S F Ciprofloxacin Ciprofloxacin S F Gentamicin Gentamicin S F Imipenem Imipenem S F Levofloxacin Levofloxacin S F Meropenem Meropenem S F Piperacillin Piperacillin S F Ticarcillin Ticarcillin S F Tobramycin Tobramycin S F Organism: 2.3 Antibiotic Interpretation SANDHYA Status Ciprofloxacin Ciprofloxacin S F Erythromycin Erythromycin S F Gentamicin Gentamicin S F Levofloxacin Levofloxacin S F Linezolid Linezolid S F Moxifloxacin Moxifloxacin S F Oxacillin Oxacillin S F Penicillin Penicillin R F Quinupristin/Dalfopri stin Quinupristin/Dalfopri stin S F Rifampin Rifampin S F Tetracycline Tetracycline S F Trimethoprim/Sulfamet hoxazole Trimethoprim/Sulfamet hoxazole S F Vancomycin Vancomycin S F Clindamycin Clindamycin S F Aerobic Culture *Penicillinase-stabl e penicillins, such as: Aerobic Culture Organism: Staphylococcus aureus : O:GNR Isolated O:PSAV Isolated O:STAAUR Isolated Organism: 2.2 Antibiotic Interpretation SANDHYA Status Amikacin Amikacin S F Cefepime Cefepime S F Ceftazidime Ceftazidime S F Ciprofloxacin Ciprofloxacin S F Gentamicin Gentamicin S F Imipenem Imipenem S F Levofloxacin Levofloxacin S F Meropenem Meropenem S F Piperacillin Piperacillin S F Ticarcillin Ticarcillin S F Tobramycin Tobramycin S F Organism: 2.3 Antibiotic Interpretation SANDHYA Status Ciprofloxacin Ciprofloxacin S F Erythromycin Erythromycin S F Gentamicin Gentamicin S F Levofloxacin Levofloxacin S F Linezolid Linezolid S F Moxifloxacin Moxifloxacin S F Oxacillin Oxacillin S F Penicillin Penicillin R F Quinupristin/Dalfopri stin Quinupristin/Dalfopri stin S F Rifampin Rifampin S F Tetracycline Tetracycline S F Trimethoprim/Sulfamet hoxazole Trimethoprim/Sulfamet hoxazole S F Vancomycin Vancomycin S F Clindamycin Clindamycin S F Aerobic Culture Cloxacillin, Dicloxacillin, Nafcillin Aerobic Culture Organism: Staphylococcus aureus : O:GNR Isolated O:PSAV Isolated O:BRIE Isolated Organism: 2.2 Antibiotic Interpretation SANDHYA Status Amikacin Amikacin S F Cefepime Cefepime S F Ceftazidime Ceftazidime S F Ciprofloxacin Ciprofloxacin S F Gentamicin Gentamicin S F Imipenem Imipenem S F Levofloxacin Levofloxacin S F Meropenem Meropenem S F Piperacillin Piperacillin S F Ticarcillin Ticarcillin S F Tobramycin Tobramycin S F Organism: 2.3 Antibiotic Interpretation SANDHYA Status Ciprofloxacin Ciprofloxacin S F Erythromycin Erythromycin S F Gentamicin Gentamicin S F Levofloxacin Levofloxacin S F Linezolid Linezolid S F Moxifloxacin Moxifloxacin S F Oxacillin Oxacillin S F Penicillin Penicillin R F Quinupristin/Dalfopri stin Quinupristin/Dalfopri stin S F Rifampin Rifampin S F Tetracycline Tetracycline S F Trimethoprim/Sulfamet hoxazole Trimethoprim/Sulfamet hoxazole S F Vancomycin Vancomycin S F Clindamycin Clindamycin S F Aerobic Culture *Beta-lactam combina tion agents, such as: Aerobic Culture Organism: Staphylococcus aureus : O:GNR Isolated O:PSAV Isolated O:BRIE Isolated Organism: 2.2 Antibiotic Interpretation SANDHYA Status Amikacin Amikacin S F Cefepime Cefepime S F Ceftazidime Ceftazidime S F Ciprofloxacin Ciprofloxacin S F Gentamicin Gentamicin S F Imipenem Imipenem S F Levofloxacin Levofloxacin S F Meropenem Meropenem S F Piperacillin Piperacillin S F Ticarcillin Ticarcillin S F Tobramycin Tobramycin S F Organism: 2.3 Antibiotic Interpretation SANDHYA Status Ciprofloxacin Ciprofloxacin S F Erythromycin Erythromycin S F Gentamicin Gentamicin S F Levofloxacin Levofloxacin S F Linezolid Linezolid S F Moxifloxacin Moxifloxacin S F Oxacillin Oxacillin S F Penicillin Penicillin R F Quinupristin/Dalfopri stin Quinupristin/Dalfopri stin S F Rifampin Rifampin S F Tetracycline Tetracycline S F Trimethoprim/Sulfamet hoxazole Trimethoprim/Sulfamet hoxazole S F Vancomycin Vancomycin S F Clindamycin Clindamycin S F Aerobic Culture Amoxicillin-clavulan ic acid, Ampicillin-sulbactam, Aerobic Culture Organism: Staphylococcus aureus : O:GNR Isolated O:PSAV Isolated O:STAAUR Isolated Organism: 2.2 Antibiotic Interpretation SANDHYA Status Amikacin Amikacin S F Cefepime Cefepime S F Ceftazidime Ceftazidime S F Ciprofloxacin Ciprofloxacin S F Gentamicin Gentamicin S F Imipenem Imipenem S F Levofloxacin Levofloxacin S F Meropenem Meropenem S F Piperacillin Piperacillin S F Ticarcillin Ticarcillin S F Tobramycin Tobramycin S F Organism: 2.3 Antibiotic Interpretation SANDHYA Status Ciprofloxacin Ciprofloxacin S F Erythromycin Erythromycin S F Gentamicin Gentamicin S F Levofloxacin Levofloxacin S F Linezolid Linezolid S F Moxifloxacin Moxifloxacin S F Oxacillin Oxacillin S F Penicillin Penicillin R F Quinupristin/Dalfopri stin Quinupristin/Dalfopri stin S F Rifampin Rifampin S F Tetracycline Tetracycline S F Trimethoprim/Sulfamet hoxazole Trimethoprim/Sulfamet hoxazole S F Vancomycin Vancomycin S F Clindamycin Clindamycin S F Aerobic Culture Piperacillin-tazobactam Aerobic Culture Organism: Staphylococcus aureus : O:GNR Isolated O:PSAV Isolated O:STAAUR Isolated Organism: 2.2 Antibiotic Interpretation SANDHYA Status Amikacin Amikacin S F Cefepime Cefepime S F Ceftazidime Ceftazidime S F Ciprofloxacin Ciprofloxacin S F Gentamicin Gentamicin S F Imipenem Imipenem S F Levofloxacin Levofloxacin S F Meropenem Meropenem S F Piperacillin Piperacillin S F Ticarcillin Ticarcillin S F Tobramycin Tobramycin S F Organism: 2.3 Antibiotic Interpretation SANDHYA Status Ciprofloxacin Ciprofloxacin S F Erythromycin Erythromycin S F Gentamicin Gentamicin S F Levofloxacin Levofloxacin S F Linezolid Linezolid S F Moxifloxacin Moxifloxacin S F Oxacillin Oxacillin S F Penicillin Penicillin R F Quinupristin/Dalfopri stin Quinupristin/Dalfopri stin S F Rifampin Rifampin S F Tetracycline Tetracycline S F Trimethoprim/Sulfamet hoxazole Trimethoprim/Sulfamet hoxazole S F Vancomycin Vancomycin S F Clindamycin Clindamycin S F Aerobic Culture *Oral cephems, such as: Aerobic Culture Organism: Staphylococcus aureus : O:GNR Isolated O:PSAV Isolated O:STAAUR Isolated Organism: 2.2 Antibiotic Interpretation SANDHYA Status Amikacin Amikacin S F Cefepime Cefepime S F Ceftazidime Ceftazidime S F Ciprofloxacin Ciprofloxacin S F Gentamicin Gentamicin S F Imipenem Imipenem S F Levofloxacin Levofloxacin S F Meropenem Meropenem S F Piperacillin Piperacillin S F Ticarcillin Ticarcillin S F Tobramycin Tobramycin S F Organism: 2.3 Antibiotic Interpretation SANDHYA Status Ciprofloxacin Ciprofloxacin S F Erythromycin Erythromycin S F Gentamicin Gentamicin S F Levofloxacin Levofloxacin S F Linezolid Linezolid S F Moxifloxacin Moxifloxacin S F Oxacillin Oxacillin S F Penicillin Penicillin R F Quinupristin/Dalfopri stin Quinupristin/Dalfopri stin S F Rifampin Rifampin S F Tetracycline Tetracycline S F Trimethoprim/Sulfamet hoxazole Trimethoprim/Sulfamet hoxazole S F Vancomycin Vancomycin S F Clindamycin Clindamycin S F Aerobic Culture Cefaclor, Cefdinir, Cefpodoxime, Cefprozil, Cefuroxime, Aerobic Culture Organism: Staphylococcus aureus : O:GNR Isolated O:PSAV Isolated O:STAAUR Isolated Organism: 2.2 Antibiotic Interpretation SANDHYA Status Amikacin Amikacin S F Cefepime Cefepime S F Ceftazidime Ceftazidime S F Ciprofloxacin Ciprofloxacin S F Gentamicin Gentamicin S F Imipenem Imipenem S F Levofloxacin Levofloxacin S F Meropenem Meropenem S F Piperacillin Piperacillin S F Ticarcillin Ticarcillin S F Tobramycin Tobramycin S F Organism: 2.3 Antibiotic Interpretation SANDHYA Status Ciprofloxacin Ciprofloxacin S F Erythromycin Erythromycin S F Gentamicin Gentamicin S F Levofloxacin Levofloxacin S F Linezolid Linezolid S F Moxifloxacin Moxifloxacin S F Oxacillin Oxacillin S F Penicillin Penicillin R F Quinupristin/Dalfopri stin Quinupristin/Dalfopri stin S F Rifampin Rifampin S F Tetracycline Tetracycline S F Trimethoprim/Sulfamet hoxazole Trimethoprim/Sulfamet hoxazole S F Vancomycin Vancomycin S F Clindamycin Clindamycin S F Aerobic Culture Cephalexin, Loracarbef Aerobic Culture Organism: Staphylococcus aureus : O:GNR Isolated O:PSAV Isolated O:STAAUR Isolated Organism: 2.2 Antibiotic Interpretation SANDHYA Status Amikacin Amikacin S F Cefepime Cefepime S F Ceftazidime Ceftazidime S F Ciprofloxacin Ciprofloxacin S F Gentamicin Gentamicin S F Imipenem Imipenem S F Levofloxacin Levofloxacin S F Meropenem Meropenem S F Piperacillin Piperacillin S F Ticarcillin Ticarcillin S F Tobramycin Tobramycin S F Organism: 2.3 Antibiotic Interpretation SANDHYA Status Ciprofloxacin Ciprofloxacin S F Erythromycin Erythromycin S F Gentamicin Gentamicin S F Levofloxacin Levofloxacin S F Linezolid Linezolid S F Moxifloxacin Moxifloxacin S F Oxacillin Oxacillin S F Penicillin Penicillin R F Quinupristin/Dalfopri stin Quinupristin/Dalfopri stin S F Rifampin Rifampin S F Tetracycline Tetracycline S F Trimethoprim/Sulfamet hoxazole Trimethoprim/Sulfamet hoxazole S F Vancomycin Vancomycin S F Clindamycin Clindamycin S F Aerobic Culture *Parenteral cephems, such as: Aerobic Culture Organism: Staphylococcus aureus : O:GNR Isolated O:PSAV Isolated O:STAAUR Isolated Organism: 2.2 Antibiotic Interpretation SANDHYA Status Amikacin Amikacin S F Cefepime Cefepime S F Ceftazidime Ceftazidime S F Ciprofloxacin Ciprofloxacin S F Gentamicin Gentamicin S F Imipenem Imipenem S F Levofloxacin Levofloxacin S F Meropenem Meropenem S F Piperacillin Piperacillin S F Ticarcillin Ticarcillin S F Tobramycin Tobramycin S F Organism: 2.3 Antibiotic Interpretation SANDHYA Status Ciprofloxacin Ciprofloxacin S F Erythromycin Erythromycin S F Gentamicin Gentamicin S F Levofloxacin Levofloxacin S F Linezolid Linezolid S F Moxifloxacin Moxifloxacin S F Oxacillin Oxacillin S F Penicillin Penicillin R F Quinupristin/Dalfopri stin Quinupristin/Dalfopri stin S F Rifampin Rifampin S F Tetracycline Tetracycline S F Trimethoprim/Sulfamet hoxazole Trimethoprim/Sulfamet hoxazole S F Vancomycin Vancomycin S F Clindamycin Clindamycin S F Aerobic Culture Cefazolin, Cefepime, Cefotaxime, Cefotetan, Ceftaroline, Aerobic Culture Organism: Staphylococcus aureus : O:GNR Isolated O:PSAV Isolated O:STAAUR Isolated Organism: 2.2 Antibiotic Interpretation SANDHYA Status Amikacin Amikacin S F Cefepime Cefepime S F Ceftazidime Ceftazidime S F Ciprofloxacin Ciprofloxacin S F Gentamicin Gentamicin S F Imipenem Imipenem S F Levofloxacin Levofloxacin S F Meropenem Meropenem S F Piperacillin Piperacillin S F Ticarcillin Ticarcillin S F Tobramycin Tobramycin S F Organism: 2.3 Antibiotic Interpretation SANDHYA Status Ciprofloxacin Ciprofloxacin S F Erythromycin Erythromycin S F Gentamicin Gentamicin S F Levofloxacin Levofloxacin S F Linezolid Linezolid S F Moxifloxacin Moxifloxacin S F Oxacillin Oxacillin S F Penicillin Penicillin R F Quinupristin/Dalfopri stin Quinupristin/Dalfopri stin S F Rifampin Rifampin S F Tetracycline Tetracycline S F Trimethoprim/Sulfamet hoxazole Trimethoprim/Sulfamet hoxazole S F Vancomycin Vancomycin S F Clindamycin Clindamycin S F Aerobic Culture Ceftizoxime, Ceftria xone, Cefuroxime Aerobic Culture Organism: Staphylococcus aureus : O:GNR Isolated O:PSAV Isolated O:STAAUR Isolated Organism: 2.2 Antibiotic Interpretation SANDHYA Status Amikacin Amikacin S F Cefepime Cefepime S F Ceftazidime Ceftazidime S F Ciprofloxacin Ciprofloxacin S F Gentamicin Gentamicin S F Imipenem Imipenem S F Levofloxacin Levofloxacin S F Meropenem Meropenem S F Piperacillin Piperacillin S F Ticarcillin Ticarcillin S F Tobramycin Tobramycin S F Organism: 2.3 Antibiotic Interpretation SANDHYA Status Ciprofloxacin Ciprofloxacin S F Erythromycin Erythromycin S F Gentamicin Gentamicin S F Levofloxacin Levofloxacin S F Linezolid Linezolid S F Moxifloxacin Moxifloxacin S F Oxacillin Oxacillin S F Penicillin Penicillin R F Quinupristin/Dalfopri stin Quinupristin/Dalfopri stin S F Rifampin Rifampin S F Tetracycline Tetracycline S F Trimethoprim/Sulfamet hoxazole Trimethoprim/Sulfamet hoxazole S F Vancomycin Vancomycin S F Clindamycin Clindamycin S F Aerobic Culture *Carbapenems, such as: Aerobic Culture Organism: Staphylococcus aureus : O:GNR Isolated O:PSAV Isolated O:STAAUR Isolated Organism: 2.2 Antibiotic Interpretation SANDHYA Status Amikacin Amikacin S F Cefepime Cefepime S F Ceftazidime Ceftazidime S F Ciprofloxacin Ciprofloxacin S F Gentamicin Gentamicin S F Imipenem Imipenem S F Levofloxacin Levofloxacin S F Meropenem Meropenem S F Piperacillin Piperacillin S F Ticarcillin Ticarcillin S F Tobramycin Tobramycin S F Organism: 2.3 Antibiotic Interpretation SANDHYA Status Ciprofloxacin Ciprofloxacin S F Erythromycin Erythromycin S F Gentamicin Gentamicin S F Levofloxacin Levofloxacin S F Linezolid Linezolid S F Moxifloxacin Moxifloxacin S F Oxacillin Oxacillin S F Penicillin Penicillin R F Quinupristin/Dalfopri stin Quinupristin/Dalfopri stin S F Rifampin Rifampin S F Tetracycline Tetracycline S F Trimethoprim/Sulfamet hoxazole Trimethoprim/Sulfamet hoxazole S F Vancomycin Vancomycin S F Clindamycin Clindamycin S F Aerobic Culture Doripenem, Ertapenem , Imipenem, Meropenem Aerobic Culture Organism: Staphylococcus aureus : O:GNR Isolated O:PSAV Isolated O:STAAUR Isolated Organism: 2.2 Antibiotic Interpretation SANDHYA Status Amikacin Amikacin S F Cefepime Cefepime S F Ceftazidime Ceftazidime S F Ciprofloxacin Ciprofloxacin S F Gentamicin Gentamicin S F Imipenem Imipenem S F Levofloxacin Levofloxacin S F Meropenem Meropenem S F Piperacillin Piperacillin S F Ticarcillin Ticarcillin S F Tobramycin Tobramycin S F Organism: 2.3 Antibiotic Interpretation SANDHYA Status Ciprofloxacin Ciprofloxacin S F Erythromycin Erythromycin S F Gentamicin Gentamicin S F Levofloxacin Levofloxacin S F Linezolid Linezolid S F Moxifloxacin Moxifloxacin S F Oxacillin Oxacillin S F Penicillin Penicillin R F Quinupristin/Dalfopri stin Quinupristin/Dalfopri stin S F Rifampin Rifampin S F Tetracycline Tetracycline S F Trimethoprim/Sulfamet hoxazole Trimethoprim/Sulfamet hoxazole S F Vancomycin Vancomycin S F Clindamycin Clindamycin S F Aerobic Culture Heavy growth Aerobic Culture Organism: Staphylococcus aureus : O:GNR Isolated O:PSAV Isolated O:STAAUR Isolated Organism: 2.2 Antibiotic Interpretation SANDHYA Status Amikacin Amikacin S F Cefepime Cefepime S F Ceftazidime Ceftazidime S F Ciprofloxacin Ciprofloxacin S F Gentamicin Gentamicin S F Imipenem Imipenem S F Levofloxacin Levofloxacin S F Meropenem Meropenem S F Piperacillin Piperacillin S F Ticarcillin Ticarcillin S F Tobramycin Tobramycin S F Organism: 2.3 Antibiotic Interpretation SANDHYA Status Ciprofloxacin Ciprofloxacin S F Erythromycin Erythromycin S F Gentamicin Gentamicin S F Levofloxacin Levofloxacin S F Linezolid Linezolid S F Moxifloxacin Moxifloxacin S F Oxacillin Oxacillin S F Penicillin Penicillin R F Quinupristin/Dalfopri stin Quinupristin/Dalfopri stin S F Rifampin Rifampin S F Tetracycline Tetracycline S F Trimethoprim/Sulfamet hoxazole Trimethoprim/Sulfamet hoxazole S F Vancomycin Vancomycin S F Clindamycin Clindamycin S F Aerobic Culture Organism: Pseudomona s aeruginosa.. : Aerobic Culture Organism: Staphylococcus aureus : O:GNR Isolated O:PSAV Isolated O:STAAUR Isolated Organism: 2.2 Antibiotic Interpretation SANDHYA Status Amikacin Amikacin S F Cefepime Cefepime S F Ceftazidime Ceftazidime S F Ciprofloxacin Ciprofloxacin S F Gentamicin Gentamicin S F Imipenem Imipenem S F Levofloxacin Levofloxacin S F Meropenem Meropenem S F Piperacillin Piperacillin S F Ticarcillin Ticarcillin S F Tobramycin Tobramycin S F Organism: 2.3 Antibiotic Interpretation SANDHYA Status Ciprofloxacin Ciprofloxacin S F Erythromycin Erythromycin S F Gentamicin Gentamicin S F Levofloxacin Levofloxacin S F Linezolid Linezolid S F Moxifloxacin Moxifloxacin S F Oxacillin Oxacillin S F Penicillin Penicillin R F Quinupristin/Dalfopri stin Quinupristin/Dalfopri stin S F Rifampin Rifampin S F Tetracycline Tetracycline S F Trimethoprim/Sulfamet hoxazole Trimethoprim/Sulfamet hoxazole S F Vancomycin Vancomycin S F Clindamycin Clindamycin S F Aerobic Culture *ABNORMAL* Aerobic Culture Organism: Staphylococcus aureus : O:GNR Isolated O:PSAV Isolated O:STAAUR Isolated Organism: 2.2 Antibiotic Interpretation SANDHYA Status Amikacin Amikacin S F Cefepime Cefepime S F Ceftazidime Ceftazidime S F Ciprofloxacin Ciprofloxacin S F Gentamicin Gentamicin S F Imipenem Imipenem S F Levofloxacin Levofloxacin S F Meropenem Meropenem S F Piperacillin Piperacillin S F Ticarcillin Ticarcillin S F Tobramycin Tobramycin S F Organism: 2.3 Antibiotic Interpretation SANDHYA Status Ciprofloxacin Ciprofloxacin S F Erythromycin Erythromycin S F Gentamicin Gentamicin S F Levofloxacin Levofloxacin S F Linezolid Linezolid S F Moxifloxacin Moxifloxacin S F Oxacillin Oxacillin S F Penicillin Penicillin R F Quinupristin/Dalfopri stin Quinupristin/Dalfopri stin S F Rifampin Rifampin S F Tetracycline Tetracycline S F Trimethoprim/Sulfamet hoxazole Trimethoprim/Sulfamet hoxazole S F Vancomycin Vancomycin S F Clindamycin Clindamycin S F Aerobic Culture Light growth Aerobic Culture Organism: Staphylococcus aureus : O:GNR Isolated O:PSAV Isolated O:STAAUR Isolated Organism: 2.2 Antibiotic Interpretation SANDHYA Status Amikacin Amikacin S F Cefepime Cefepime S F Ceftazidime Ceftazidime S F Ciprofloxacin Ciprofloxacin S F Gentamicin Gentamicin S F Imipenem Imipenem S F Levofloxacin Levofloxacin S F Meropenem Meropenem S F Piperacillin Piperacillin S F Ticarcillin Ticarcillin S F Tobramycin Tobramycin S F Organism: 2.3 Antibiotic Interpretation SANDHYA Status Ciprofloxacin Ciprofloxacin S F Erythromycin Erythromycin S F Gentamicin Gentamicin S F Levofloxacin Levofloxacin S F Linezolid Linezolid S F Moxifloxacin Moxifloxacin S F Oxacillin Oxacillin S F Penicillin Penicillin R F Quinupristin/Dalfopri stin Quinupristin/Dalfopri stin S F Rifampin Rifampin S F Tetracycline Tetracycline S F Trimethoprim/Sulfamet hoxazole Trimethoprim/Sulfamet hoxazole S F Vancomycin Vancomycin S F Clindamycin Clindamycin S F Aerobic Culture Pseudomonas aeruginosa.. Aerobic Culture Organism: Staphylococcus aureus : O:GNR Isolated O:PSAV Isolated O:STAAUR Isolated Organism: 2.2 Antibiotic Interpretation SANDHYA Status Amikacin Amikacin S F Cefepime Cefepime S F Ceftazidime Ceftazidime S F Ciprofloxacin Ciprofloxacin S F Gentamicin Gentamicin S F Imipenem Imipenem S F Levofloxacin Levofloxacin S F Meropenem Meropenem S F Piperacillin Piperacillin S F Ticarcillin Ticarcillin S F Tobramycin Tobramycin S F Organism: 2.3 Antibiotic Interpretation SANDHYA Status Ciprofloxacin Ciprofloxacin S F Erythromycin Erythromycin S F Gentamicin Gentamicin S F Levofloxacin Levofloxacin S F Linezolid Linezolid S F Moxifloxacin Moxifloxacin S F Oxacillin Oxacillin S F Penicillin Penicillin R F Quinupristin/Dalfopri stin Quinupristin/Dalfopri stin S F Rifampin Rifampin S F Tetracycline Tetracycline S F Trimethoprim/Sulfamet hoxazole Trimethoprim/Sulfamet hoxazole S F Vancomycin Vancomycin S F Clindamycin Clindamycin S F Aerobic Culture See Below For Report Aerobic Culture Organism: Staphylococcus aureus : O:GNR Isolated O:PSAV Isolated O:STAAUR Isolated Organism: 2.2 Antibiotic Interpretation SANDHYA Status Amikacin Amikacin S F Cefepime Cefepime S F Ceftazidime Ceftazidime S F Ciprofloxacin Ciprofloxacin S F Gentamicin Gentamicin S F Imipenem Imipenem S F Levofloxacin Levofloxacin S F Meropenem Meropenem S F Piperacillin Piperacillin S F Ticarcillin Ticarcillin S F Tobramycin Tobramycin S F Organism: 2.3 Antibiotic Interpretation SANDHYA Status Ciprofloxacin Ciprofloxacin S F Erythromycin Erythromycin S F Gentamicin Gentamicin S F Levofloxacin Levofloxacin S F Linezolid Linezolid S F Moxifloxacin Moxifloxacin S F Oxacillin Oxacillin S F Penicillin Penicillin R F Quinupristin/Dalfopri stin Quinupristin/Dalfopri stin S F Rifampin Rifampin S F Tetracycline Tetracycline S F Trimethoprim/Sulfamet hoxazole Trimethoprim/Sulfamet hoxazole S F Vancomycin Vancomycin S F Clindamycin Clindamycin S F Aerobic Culture See Below For Report Aerobic Culture Organism: Staphylococcus aureus : O:GNR Isolated O:PSAV Isolated O:STAAUR Isolated Organism: 2.2 Antibiotic Interpretation SANDHYA Status Amikacin Amikacin S F Cefepime Cefepime S F Ceftazidime Ceftazidime S F Ciprofloxacin Ciprofloxacin S F Gentamicin Gentamicin S F Imipenem Imipenem S F Levofloxacin Levofloxacin S F Meropenem Meropenem S F Piperacillin Piperacillin S F Ticarcillin Ticarcillin S F Tobramycin Tobramycin S F Organism: 2.3 Antibiotic Interpretation SANDHYA Status Ciprofloxacin Ciprofloxacin S F Erythromycin Erythromycin S F Gentamicin Gentamicin S F Levofloxacin Levofloxacin S F Linezolid Linezolid S F Moxifloxacin Moxifloxacin S F Oxacillin Oxacillin S F Penicillin Penicillin R F Quinupristin/Dalfopri stin Quinupristin/Dalfopri stin S F Rifampin Rifampin S F Tetracycline Tetracycline S F Trimethoprim/Sulfamet hoxazole Trimethoprim/Sulfamet hoxazole S F Vancomycin Vancomycin S F Clindamycin Clindamycin S F Aerobic Culture See Below For Report Aerobic Culture Organism: Staphylococcus aureus : O:GNR Isolated O:PSAV Isolated O:STAAUR Isolated Organism: 2.2 Antibiotic Interpretation SANDHYA Status Amikacin Amikacin S F Cefepime Cefepime S F Ceftazidime Ceftazidime S F Ciprofloxacin Ciprofloxacin S F Gentamicin Gentamicin S F Imipenem Imipenem S F Levofloxacin Levofloxacin S F Meropenem Meropenem S F Piperacillin Piperacillin S F Ticarcillin Ticarcillin S F Tobramycin Tobramycin S F Organism: 2.3 Antibiotic Interpretation SANDHYA Status Ciprofloxacin Ciprofloxacin S F Erythromycin Erythromycin S F Gentamicin Gentamicin S F Levofloxacin Levofloxacin S F Linezolid Linezolid S F Moxifloxacin Moxifloxacin S F Oxacillin Oxacillin S F Penicillin Penicillin R F Quinupristin/Dalfopri stin Quinupristin/Dalfopri stin S F Rifampin Rifampin S F Tetracycline Tetracycline S F Trimethoprim/Sulfamet hoxazole Trimethoprim/Sulfamet hoxazole S F Vancomycin Vancomycin S F Clindamycin Clindamycin S F Aerobic Culture Performed at: [facility] Aerobic Culture Organism: Staphylococcus aureus : O:GNR Isolated O:PSAV Isolated O:STAAUR Isolated Organism: 2.2 Antibiotic Interpretation SANDHYA Status Amikacin Amikacin S F Cefepime Cefepime S F Ceftazidime Ceftazidime S F Ciprofloxacin Ciprofloxacin S F Gentamicin Gentamicin S F Imipenem Imipenem S F Levofloxacin Levofloxacin S F Meropenem Meropenem S F Piperacillin Piperacillin S F Ticarcillin Ticarcillin S F Tobramycin Tobramycin S F Organism: 2.3 Antibiotic Interpretation SANDHYA Status Ciprofloxacin Ciprofloxacin S F Erythromycin Erythromycin S F Gentamicin Gentamicin S F Levofloxacin Levofloxacin S F Linezolid Linezolid S F Moxifloxacin Moxifloxacin S F Oxacillin Oxacillin S F Penicillin Penicillin R F Quinupristin/Dalfopri stin Quinupristin/Dalfopri stin S F Rifampin Rifampin S F Tetracycline Tetracycline S F Trimethoprim/Sulfamet hoxazole Trimethoprim/Sulfamet hoxazole S F Vancomycin Vancomycin S F Clindamycin Clindamycin S F Aerobic Culture [address] [place], [place] [id number] Aerobic Culture Organism: Staphylococcus aureus : O:GNR Isolated O:PSAV Isolated O:STAAUR Isolated Organism: 2.2 Antibiotic Interpretation SANDHYA Status Amikacin Amikacin S F Cefepime Cefepime S F Ceftazidime Ceftazidime S F Ciprofloxacin Ciprofloxacin S F Gentamicin Gentamicin S F Imipenem Imipenem S F Levofloxacin Levofloxacin S F Meropenem Meropenem S F Piperacillin Piperacillin S F Ticarcillin Ticarcillin S F Tobramycin Tobramycin S F Organism: 2.3 Antibiotic Interpretation SANDHYA Status Ciprofloxacin Ciprofloxacin S F Erythromycin Erythromycin S F Gentamicin Gentamicin S F Levofloxacin Levofloxacin S F Linezolid Linezolid S F Moxifloxacin Moxifloxacin S F Oxacillin Oxacillin S F Penicillin Penicillin R F Quinupristin/Dalfopri stin Quinupristin/Dalfopri stin S F Rifampin Rifampin S F Tetracycline Tetracycline S F Trimethoprim/Sulfamet hoxazole Trimethoprim/Sulfamet hoxazole S F Vancomycin Vancomycin S F Clindamycin Clindamycin S F Aerobic Culture [employer] Professor: Thierno Almanza PhD, Phone: [phone] Aerobic Culture Organism: Staphylococcus aureus : O:GNR Isolated O:PSAV Isolated O:STAAUR Isolated Organism: 2.2 Antibiotic Interpretation SANDHYA Status Amikacin Amikacin S F Cefepime Cefepime S F Ceftazidime Ceftazidime S F Ciprofloxacin Ciprofloxacin S F Gentamicin Gentamicin S F Imipenem Imipenem S F Levofloxacin Levofloxacin S F Meropenem Meropenem S F Piperacillin Piperacillin S F Ticarcillin Ticarcillin S F Tobramycin Tobramycin S F Organism: 2.3 Antibiotic Interpretation SANDHYA Status Ciprofloxacin Ciprofloxacin S F Erythromycin Erythromycin S F Gentamicin Gentamicin S F Levofloxacin Levofloxacin S F Linezolid Linezolid S F Moxifloxacin Moxifloxacin S F Oxacillin Oxacillin S F Penicillin Penicillin R F Quinupristin/Dalfopri stin Quinupristin/Dalfopri stin S F Rifampin Rifampin S F Tetracycline Tetracycline S F Trimethoprim/Sulfamet hoxazole Trimethoprim/Sulfamet hoxazole S F Vancomycin Vancomycin S F Clindamycin Clindamycin S F Aerobic Culture See Below For Report Aerobic Culture Organism: Staphylococcus aureus : O:GNR Isolated O:PSAV Isolated O:STAAUR Isolated Organism: 2.2 Antibiotic Interpretation SANDHYA Status Amikacin Amikacin S F Cefepime Cefepime S F Ceftazidime Ceftazidime S F Ciprofloxacin Ciprofloxacin S F Gentamicin Gentamicin S F Imipenem Imipenem S F Levofloxacin Levofloxacin S F Meropenem Meropenem S F Piperacillin Piperacillin S F Ticarcillin Ticarcillin S F Tobramycin Tobramycin S F Organism: 2.3 Antibiotic Interpretation SANDHYA Status Ciprofloxacin Ciprofloxacin S F Erythromycin Erythromycin S F Gentamicin Gentamicin S F Levofloxacin Levofloxacin S F Linezolid Linezolid S F Moxifloxacin Moxifloxacin S F Oxacillin Oxacillin S F Penicillin Penicillin R F Quinupristin/Dalfopri stin Quinupristin/Dalfopri stin S F Rifampin Rifampin S F Tetracycline Tetracycline S F Trimethoprim/Sulfamet hoxazole Trimethoprim/Sulfamet hoxazole S F Vancomycin Vancomycin S F Clindamycin Clindamycin S F Aerobic Culture See Below For Report Aerobic Culture Organism: Staphylococcus aureus : O:GNR Isolated O:PSAV Isolated O:STAAUR Isolated Organism: 2.2 Antibiotic Interpretation SANDHYA Status Amikacin Amikacin S F Cefepime Cefepime S F Ceftazidime Ceftazidime S F Ciprofloxacin Ciprofloxacin S F Gentamicin Gentamicin S F Imipenem Imipenem S F Levofloxacin Levofloxacin S F Meropenem Meropenem S F Piperacillin Piperacillin S F Ticarcillin Ticarcillin S F Tobramycin Tobramycin S F Organism: 2.3 Antibiotic Interpretation SANDHYA Status Ciprofloxacin Ciprofloxacin S F Erythromycin Erythromycin S F Gentamicin Gentamicin S F Levofloxacin Levofloxacin S F Linezolid Linezolid S F Moxifloxacin Moxifloxacin S F Oxacillin Oxacillin S F Penicillin Penicillin R F Quinupristin/Dalfopri stin Quinupristin/Dalfopri stin S F Rifampin Rifampin S F Tetracycline Tetracycline S F Trimethoprim/Sulfamet hoxazole Trimethoprim/Sulfamet hoxazole S F Vancomycin Vancomycin S F Clindamycin Clindamycin S F Aerobic Culture See Below For Report Aerobic Culture Organism: Staphylococcus aureus : O:GNR Isolated O:PSAV [facility] Isolated Organism: 2.2 Antibiotic Interpretation SANDHYA Status Amikacin Amikacin S F Cefepime Cefepime S F Ceftazidime Ceftazidime S F Ciprofloxacin Ciprofloxacin S F Gentamicin Gentamicin S F Imipenem Imipenem S F Levofloxacin Levofloxacin S F Meropenem Meropenem S F Piperacillin Piperacillin S F Ticarcillin Ticarcillin S F Tobramycin Tobramycin S F Organism: 2.3 Antibiotic Interpretation SANDHYA Status Ciprofloxacin Ciprofloxacin S F Erythromycin Erythromycin S F Gentamicin Gentamicin S F Levofloxacin Levofloxacin S F Linezolid Linezolid S F Moxifloxacin Moxifloxacin S F Oxacillin Oxacillin S F Penicillin Penicillin R F Quinupristin/Dalfopri stin Quinupristin/Dalfopri stin S F Rifampin Rifampin S F Tetracycline Tetracycline S F Trimethoprim/Sulfamet hoxazole Trimethoprim/Sulfamet hoxazole S F Vancomycin Vancomycin S F Clindamycin Clindamycin S F Aerobic Culture See Below For Report Aerobic Culture Organism: Staphylococcus aureus : O:GNR Isolated O:PSAV Isolated O:BRIE Isolated Organism: 2.2 Antibiotic Interpretation SANDHYA Status Amikacin Amikacin S F Cefepime Cefepime S F Ceftazidime Ceftazidime S F Ciprofloxacin Ciprofloxacin S F Gentamicin Gentamicin S F Imipenem Imipenem S F Levofloxacin Levofloxacin S F Meropenem Meropenem S F Piperacillin Piperacillin S F Ticarcillin Ticarcillin S F Tobramycin Tobramycin S F Organism: 2.3 Antibiotic Interpretation SANDHYA Status Ciprofloxacin Ciprofloxacin S F Erythromycin Erythromycin S F Gentamicin Gentamicin S F Levofloxacin Levofloxacin S F Linezolid Linezolid S F Moxifloxacin Moxifloxacin S F Oxacillin Oxacillin S F Penicillin Penicillin R F Quinupristin/Dalfopri stin Quinupristin/Dalfopri stin S F Rifampin Rifampin S F Tetracycline Tetracycline S F Trimethoprim/Sulfamet hoxazole Trimethoprim/Sulfamet hoxazole S F Vancomycin Vancomycin S F Clindamycin Clindamycin S F Aerobic Culture See Below For Report Aerobic Culture Organism: Staphylococcus aureus : O:GNR Isolated O:PSAV Isolated O:STAAUR Isolated Organism: 2.2 Antibiotic Interpretation SANDHYA Status Amikacin Amikacin S F Cefepime Cefepime S F Ceftazidime Ceftazidime S F Ciprofloxacin Ciprofloxacin S F Gentamicin Gentamicin S F Imipenem Imipenem S F Levofloxacin Levofloxacin S F Meropenem Meropenem S F Piperacillin Piperacillin S F Ticarcillin Ticarcillin S F Tobramycin Tobramycin S F Organism: 2.3 Antibiotic Interpretation SANDHYA Status Ciprofloxacin Ciprofloxacin S F Erythromycin Erythromycin S F Gentamicin Gentamicin S F Levofloxacin Levofloxacin S F Linezolid Linezolid S F Moxifloxacin Moxifloxacin S F Oxacillin Oxacillin S F Penicillin Penicillin R F Quinupristin/Dalfopri stin Quinupristin/Dalfopri stin S F Rifampin Rifampin S F Tetracycline Tetracycline S F Trimethoprim/Sulfamet hoxazole Trimethoprim/Sulfamet hoxazole S F Vancomycin Vancomycin S F Clindamycin Clindamycin S F Aerobic Culture See Below For Report Aerobic Culture Organism: Staphylococcus aureus : O:GNR Isolated O:PSAV Isolated O:STAAUR Isolated Organism: 2.2 Antibiotic Interpretation SANDHYA Status Amikacin Amikacin S F Cefepime Cefepime S F Ceftazidime Ceftazidime S F Ciprofloxacin Ciprofloxacin S F Gentamicin Gentamicin S F Imipenem Imipenem S F Levofloxacin Levofloxacin S F Meropenem Meropenem S F Piperacillin Piperacillin S F Ticarcillin Ticarcillin S F Tobramycin Tobramycin S F Organism: 2.3 Antibiotic Interpretation SANDHYA Status Ciprofloxacin Ciprofloxacin S F Erythromycin Erythromycin S F Gentamicin Gentamicin S F Levofloxacin Levofloxacin S F Linezolid Linezolid S F Moxifloxacin Moxifloxacin S F Oxacillin Oxacillin S F Penicillin Penicillin R F Quinupristin/Dalfopri stin Quinupristin/Dalfopri stin S F Rifampin Rifampin S F Tetracycline Tetracycline S F Trimethoprim/Sulfamet hoxazole Trimethoprim/Sulfamet hoxazole S F Vancomycin Vancomycin S F Clindamycin Clindamycin S F Aerobic Culture See Below For Report Aerobic Culture Organism: Staphylococcus aureus : O:GNR Isolated O:PSAV Isolated O:STAAUR Isolated Organism: 2.2 Antibiotic Interpretation SANDHYA Status Amikacin Amikacin S F Cefepime Cefepime S F Ceftazidime Ceftazidime S F Ciprofloxacin Ciprofloxacin S F Gentamicin Gentamicin S F Imipenem Imipenem S F Levofloxacin Levofloxacin S F Meropenem Meropenem S F Piperacillin Piperacillin S F Ticarcillin Ticarcillin S F Tobramycin Tobramycin S F Organism: 2.3 Antibiotic Interpretation SANDHYA Status Ciprofloxacin Ciprofloxacin S F Erythromycin Erythromycin S F Gentamicin Gentamicin S F Levofloxacin Levofloxacin S F Linezolid Linezolid S F Moxifloxacin Moxifloxacin S F Oxacillin Oxacillin S F Penicillin Penicillin R F Quinupristin/Dalfopri stin Quinupristin/Dalfopri stin S F Rifampin Rifampin S F Tetracycline Tetracycline S F Trimethoprim/Sulfamet hoxazole Trimethoprim/Sulfamet hoxazole S F Vancomycin Vancomycin S F Clindamycin Clindamycin S F Aerobic Culture See Below For Report Aerobic Culture Organism: Staphylococcus aureus : O:GNR Isolated O:PSAV Isolated O:BRIE Isolated Organism: 2.2 Antibiotic Interpretation SANDHYA Status Amikacin Amikacin S F Cefepime Cefepime S F Ceftazidime Ceftazidime S F Ciprofloxacin Ciprofloxacin S F Gentamicin Gentamicin S F Imipenem Imipenem S F Levofloxacin Levofloxacin S F Meropenem Meropenem S F Piperacillin Piperacillin S F Ticarcillin Ticarcillin S F Tobramycin Tobramycin S F Organism: 2.3 Antibiotic Interpretation SANDHYA Status Ciprofloxacin Ciprofloxacin S F Erythromycin Erythromycin S F Gentamicin Gentamicin S F Levofloxacin Levofloxacin S F Linezolid Linezolid S F Moxifloxacin Moxifloxacin S F Oxacillin Oxacillin S F Penicillin Penicillin R F Quinupristin/Dalfopri stin Quinupristin/Dalfopri stin S F Rifampin Rifampin S F Tetracycline Tetracycline S F Trimethoprim/Sulfamet hoxazole Trimethoprim/Sulfamet hoxazole S F Vancomycin Vancomycin S F Clindamycin Clindamycin S F Aerobic Culture See Below For Report Aerobic Culture Organism: Staphylococcus aureus : O:GNR Isolated O:PSAV Isolated O:STAAUR Isolated Organism: 2.2 Antibiotic Interpretation SANDHYA Status Amikacin Amikacin S F Cefepime Cefepime S F Ceftazidime Ceftazidime S F Ciprofloxacin Ciprofloxacin S F Gentamicin Gentamicin S F Imipenem Imipenem S F Levofloxacin Levofloxacin S F Meropenem Meropenem S F Piperacillin Piperacillin S F Ticarcillin Ticarcillin S F Tobramycin Tobramycin S F Organism: 2.3 Antibiotic Interpretation SANDHYA Status Ciprofloxacin Ciprofloxacin S F Erythromycin Erythromycin S F Gentamicin Gentamicin S F Levofloxacin Levofloxacin S F Linezolid Linezolid S F Moxifloxacin Moxifloxacin S F Oxacillin Oxacillin S F Penicillin Penicillin R F Quinupristin/Dalfopri stin Quinupristin/Dalfopri stin S F Rifampin Rifampin S F Tetracycline Tetracycline S F Trimethoprim/Sulfamet hoxazole Trimethoprim/Sulfamet hoxazole S F Vancomycin Vancomycin S F Clindamycin Clindamycin S F Aerobic Culture See Below For Report Aerobic Culture Organism: Staphylococcus aureus : O:GNR Isolated O:PSAV Isolated O:STAAUR Isolated Organism: 2.2 Antibiotic Interpretation SANDHYA Status Amikacin Amikacin S F Cefepime Cefepime S F Ceftazidime Ceftazidime S F Ciprofloxacin Ciprofloxacin S F Gentamicin Gentamicin S F Imipenem Imipenem S F Levofloxacin Levofloxacin S F Meropenem Meropenem S F Piperacillin Piperacillin S F Ticarcillin Ticarcillin S F Tobramycin Tobramycin S F Organism: 2.3 Antibiotic Interpretation SANDHYA Status Ciprofloxacin Ciprofloxacin S F Erythromycin Erythromycin S F Gentamicin Gentamicin S F Levofloxacin Levofloxacin S F Linezolid Linezolid S F Moxifloxacin Moxifloxacin S F Oxacillin Oxacillin S F Penicillin Penicillin R F Quinupristin/Dalfopri stin Quinupristin/Dalfopri stin S F Rifampin Rifampin S F Tetracycline Tetracycline S F Trimethoprim/Sulfamet hoxazole Trimethoprim/Sulfamet hoxazole S F Vancomycin Vancomycin S F Clindamycin Clindamycin S F Aerobic Culture See Below For Report Aerobic Culture Organism: Staphylococcus aureus : O:GNR Isolated O:PSAV Isolated O:STAAUR Isolated Organism: 2.2 Antibiotic Interpretation SANDHYA Status Amikacin Amikacin S F Cefepime Cefepime S F Ceftazidime Ceftazidime S F Ciprofloxacin Ciprofloxacin S F Gentamicin Gentamicin S F Imipenem Imipenem S F Levofloxacin Levofloxacin S F Meropenem Meropenem S F Piperacillin Piperacillin S F Ticarcillin Ticarcillin S F Tobramycin Tobramycin S F Organism: 2.3 Antibiotic Interpretation SANDHYA Status Ciprofloxacin Ciprofloxacin S F Erythromycin Erythromycin S F Gentamicin Gentamicin S F Levofloxacin Levofloxacin S F Linezolid Linezolid S F Moxifloxacin Moxifloxacin S F Oxacillin Oxacillin S F Penicillin Penicillin R F Quinupristin/Dalfopri stin Quinupristin/Dalfopri stin S F Rifampin Rifampin S F Tetracycline Tetracycline S F Trimethoprim/Sulfamet hoxazole Trimethoprim/Sulfamet hoxazole S F Vancomycin Vancomycin S F Clindamycin Clindamycin S F Aerobic Culture See Below For Report Aerobic Culture Organism: Staphylococcus aureus : O:GNR Isolated O:PSAV Isolated O:STAAUR Isolated Organism: 2.2 Antibiotic Interpretation SANDHYA Status Amikacin Amikacin S F Cefepime Cefepime S F Ceftazidime Ceftazidime S F Ciprofloxacin Ciprofloxacin S F Gentamicin Gentamicin S F Imipenem Imipenem S F Levofloxacin Levofloxacin S F Meropenem Meropenem S F Piperacillin Piperacillin S F Ticarcillin Ticarcillin S F Tobramycin Tobramycin S F Organism: 2.3 Antibiotic Interpretation SANDHYA Status Ciprofloxacin Ciprofloxacin S F Erythromycin Erythromycin S F Gentamicin Gentamicin S F Levofloxacin Levofloxacin S F Linezolid Linezolid S F Moxifloxacin Moxifloxacin S F Oxacillin Oxacillin S F Penicillin Penicillin R F Quinupristin/Dalfopri stin Quinupristin/Dalfopri stin S F Rifampin Rifampin S F Tetracycline Tetracycline S F Trimethoprim/Sulfamet hoxazole Trimethoprim/Sulfamet hoxazole S F Vancomycin Vancomycin S F Clindamycin Clindamycin S F Aerobic Culture See Below For Report Aerobic Culture Organism: Staphylococcus aureus : O:GNR Isolated O:PSAV Isolated O:STAAUR Isolated Organism: 2.2 Antibiotic Interpretation SANDHYA Status Amikacin Amikacin S F Cefepime Cefepime S F Ceftazidime Ceftazidime S F Ciprofloxacin Ciprofloxacin S F Gentamicin Gentamicin S F Imipenem Imipenem S F Levofloxacin Levofloxacin S F Meropenem Meropenem S F Piperacillin Piperacillin S F Ticarcillin Ticarcillin S F Tobramycin Tobramycin S F Organism: 2.3 Antibiotic Interpretation SANDHYA Status Ciprofloxacin Ciprofloxacin S F Erythromycin Erythromycin S F Gentamicin Gentamicin S F Levofloxacin Levofloxacin S F Linezolid Linezolid S F Moxifloxacin Moxifloxacin S F Oxacillin Oxacillin S F Penicillin Penicillin R F Quinupristin/Dalfopri stin Quinupristin/Dalfopri stin S F Rifampin Rifampin S F Tetracycline Tetracycline S F Trimethoprim/Sulfamet hoxazole Trimethoprim/Sulfamet hoxazole S F Vancomycin Vancomycin S F Clindamycin Clindamycin S F Aerobic Culture See Below For Report Aerobic Culture Organism: Staphylococcus aureus : O:GNR Isolated O:PSAV Isolated O:STAAUR Isolated Organism: 2.2 Antibiotic Interpretation SANDHYA Status Amikacin Amikacin S F Cefepime Cefepime S F Ceftazidime Ceftazidime S F Ciprofloxacin Ciprofloxacin S F Gentamicin Gentamicin S F Imipenem Imipenem S F Levofloxacin Levofloxacin S F Meropenem Meropenem S F Piperacillin Piperacillin S F Ticarcillin Ticarcillin S F Tobramycin Tobramycin S F Organism: 2.3 Antibiotic Interpretation SANDHYA Status Ciprofloxacin Ciprofloxacin S F Erythromycin Erythromycin S F Gentamicin Gentamicin S F Levofloxacin Levofloxacin S F Linezolid Linezolid S F Moxifloxacin Moxifloxacin S F Oxacillin Oxacillin S F Penicillin Penicillin R F Quinupristin/Dalfopri stin Quinupristin/Dalfopri stin S F Rifampin Rifampin S F Tetracycline Tetracycline S F Trimethoprim/Sulfamet hoxazole Trimethoprim/Sulfamet hoxazole S F Vancomycin Vancomycin S F Clindamycin Clindamycin S F Aerobic Culture See Below For Report Aerobic Culture Organism: Staphylococcus aureus : O:GNR Isolated O:PSAV Isolated O:STAAUR Isolated Organism: 2.2 Antibiotic Interpretation SANDHYA Status Amikacin Amikacin S F Cefepime Cefepime S F Ceftazidime Ceftazidime S F Ciprofloxacin Ciprofloxacin S F Gentamicin Gentamicin S F Imipenem Imipenem S F Levofloxacin Levofloxacin S F Meropenem Meropenem S F Piperacillin Piperacillin S F Ticarcillin Ticarcillin S F Tobramycin Tobramycin S F Organism: 2.3 Antibiotic Interpretation SANDHYA Status Ciprofloxacin Ciprofloxacin S F Erythromycin Erythromycin S F Gentamicin Gentamicin S F Levofloxacin Levofloxacin S F Linezolid Linezolid S F Moxifloxacin Moxifloxacin S F Oxacillin Oxacillin S F Penicillin Penicillin R F Quinupristin/Dalfopri stin Quinupristin/Dalfopri stin S F Rifampin Rifampin S F Tetracycline Tetracycline S F Trimethoprim/Sulfamet hoxazole Trimethoprim/Sulfamet hoxazole S F Vancomycin Vancomycin S F Clindamycin Clindamycin S F Aerobic Culture See Below For Report Aerobic Culture Organism: Staphylococcus aureus : O:GNR Isolated O:PSAV Isolated O:STAAUR Isolated Organism: 2.2 Antibiotic Interpretation SANDHYA Status Amikacin Amikacin S F Cefepime Cefepime S F Ceftazidime Ceftazidime S F Ciprofloxacin Ciprofloxacin S F Gentamicin Gentamicin S F Imipenem Imipenem S F Levofloxacin Levofloxacin S F Meropenem Meropenem S F Piperacillin Piperacillin S F Ticarcillin Ticarcillin S F Tobramycin Tobramycin S F Organism: 2.3 Antibiotic Interpretation SANDHYA Status Ciprofloxacin Ciprofloxacin S F Erythromycin Erythromycin S F Gentamicin Gentamicin S F Levofloxacin Levofloxacin S F Linezolid Linezolid S F Moxifloxacin Moxifloxacin S F Oxacillin Oxacillin S F Penicillin Penicillin R F Quinupristin/Dalfopri stin Quinupristin/Dalfopri stin S F Rifampin Rifampin S F Tetracycline Tetracycline S F Trimethoprim/Sulfamet hoxazole Trimethoprim/Sulfamet hoxazole S F Vancomycin Vancomycin S F Clindamycin Clindamycin S F Aerobic Culture See Below For Report Aerobic Culture Organism: Staphylococcus aureus : O:GNR Isolated O:PSAV Isolated O:STAAUR Isolated Organism: 2.2 Antibiotic Interpretation SANDHYA Status Amikacin Amikacin S F Cefepime Cefepime S F Ceftazidime Ceftazidime S F Ciprofloxacin Ciprofloxacin S F Gentamicin Gentamicin S F Imipenem Imipenem S F Levofloxacin Levofloxacin S F Meropenem Meropenem S F Piperacillin Piperacillin S F Ticarcillin Ticarcillin S F Tobramycin Tobramycin S F Organism: 2.3 Antibiotic Interpretation SANDHYA Status Ciprofloxacin Ciprofloxacin S F Erythromycin Erythromycin S F Gentamicin Gentamicin S F Levofloxacin Levofloxacin S F Linezolid Linezolid S F Moxifloxacin Moxifloxacin S F Oxacillin Oxacillin S F Penicillin Penicillin R F Quinupristin/Dalfopri stin Quinupristin/Dalfopri stin S F Rifampin Rifampin S F Tetracycline Tetracycline S F Trimethoprim/Sulfamet hoxazole Trimethoprim/Sulfamet hoxazole S F Vancomycin Vancomycin S F Clindamycin Clindamycin S F Aerobic Culture See Below For Report Aerobic Culture Organism: Staphylococcus aureus : O:GNR Isolated O:PSAV Isolated O:STAALBERTO Isolated Organism: 2.2 Antibiotic Interpretation SANDHYA Status Amikacin Amikacin S F Cefepime Cefepime S F Ceftazidime Ceftazidime S F Ciprofloxacin Ciprofloxacin S F Gentamicin Gentamicin S F Imipenem Imipenem S F Levofloxacin Levofloxacin S F Meropenem Meropenem S F Piperacillin Piperacillin S F Ticarcillin Ticarcillin S F Tobramycin Tobramycin S F Organism: 2.3 Antibiotic Interpretation SANDHYA Status Ciprofloxacin Ciprofloxacin S F Erythromycin Erythromycin S F Gentamicin Gentamicin S F Levofloxacin Levofloxacin S F Linezolid Linezolid S F Moxifloxacin Moxifloxacin S F Oxacillin Oxacillin S F Penicillin Penicillin R F Quinupristin/Dalfopri stin Quinupristin/Dalfopri stin S F Rifampin Rifampin S F Tetracycline Tetracycline S F Trimethoprim/Sulfamet hoxazole Trimethoprim/Sulfamet hoxazole S F Vancomycin Vancomycin S F Clindamycin Clindamycin S F Aerobic Culture See Below For Report Aerobic Culture Organism: Staphylococcus aureus : O:GNR Isolated O:PSAV Isolated O:BRIE Isolated Organism: 2.2 Antibiotic Interpretation SANDHYA Status Amikacin Amikacin S F Cefepime Cefepime S F Ceftazidime Ceftazidime S F Ciprofloxacin Ciprofloxacin S F Gentamicin Gentamicin S F Imipenem Imipenem S F Levofloxacin Levofloxacin S F Meropenem Meropenem S F Piperacillin Piperacillin S F Ticarcillin Ticarcillin S F Tobramycin Tobramycin S F Organism: 2.3 Antibiotic Interpretation SANDHYA Status Ciprofloxacin Ciprofloxacin S F Erythromycin Erythromycin S F Gentamicin Gentamicin S F Levofloxacin Levofloxacin S F Linezolid Linezolid S F Moxifloxacin Moxifloxacin S F Oxacillin Oxacillin S F Penicillin Penicillin R F Quinupristin/Dalfopri stin Quinupristin/Dalfopri stin S F Rifampin Rifampin S F Tetracycline Tetracycline S F Trimethoprim/Sulfamet hoxazole Trimethoprim/Sulfamet hoxazole S F Vancomycin Vancomycin S F Clindamycin Clindamycin S F Aerobic Culture See Below For Report Aerobic Culture Organism: Staphylococcus aureus : O:GNR Isolated O:PSAV Isolated O:STAAUR Isolated Organism: 2.2 Antibiotic Interpretation SANDHYA Status Amikacin Amikacin S F Cefepime Cefepime S F Ceftazidime Ceftazidime S F Ciprofloxacin Ciprofloxacin S F Gentamicin Gentamicin S F Imipenem Imipenem S F Levofloxacin Levofloxacin S F Meropenem Meropenem S F Piperacillin Piperacillin S F Ticarcillin Ticarcillin S F Tobramycin Tobramycin S F Organism: 2.3 Antibiotic Interpretation SANDHYA Status Ciprofloxacin Ciprofloxacin S F Erythromycin Erythromycin S F Gentamicin Gentamicin S F Levofloxacin Levofloxacin S F Linezolid Linezolid S F Moxifloxacin Moxifloxacin S F Oxacillin Oxacillin S F Penicillin Penicillin R F Quinupristin/Dalfopri stin Quinupristin/Dalfopri stin S F Rifampin Rifampin S F Tetracycline Tetracycline S F Trimethoprim/Sulfamet hoxazole Trimethoprim/Sulfamet hoxazole S F Vancomycin Vancomycin S F Clindamycin Clindamycin S F Aerobic Culture See Below For Report Aerobic Culture Organism: Staphylococcus aureus : O:GNR Isolated O:PSAV Isolated O:STAAUR Isolated Organism: 2.2 Antibiotic Interpretation SANDHYA Status Amikacin Amikacin S F Cefepime Cefepime S F Ceftazidime Ceftazidime S F Ciprofloxacin Ciprofloxacin S F Gentamicin Gentamicin S F Imipenem Imipenem S F Levofloxacin Levofloxacin S F Meropenem Meropenem S F Piperacillin Piperacillin S F Ticarcillin Ticarcillin S F Tobramycin Tobramycin S F Organism: 2.3 Antibiotic Interpretation SANDHYA Status Ciprofloxacin Ciprofloxacin S F Erythromycin Erythromycin S F Gentamicin Gentamicin S F Levofloxacin Levofloxacin S F Linezolid Linezolid S F Moxifloxacin Moxifloxacin S F Oxacillin Oxacillin S F Penicillin Penicillin R F Quinupristin/Dalfopri stin Quinupristin/Dalfopri stin S F Rifampin Rifampin S F Tetracycline Tetracycline S F Trimethoprim/Sulfamet hoxazole Trimethoprim/Sulfamet hoxazole S F Vancomycin Vancomycin S F Clindamycin Clindamycin S F Aerobic Culture See Below For Report Aerobic Culture Organism: Staphylococcus aureus : O:GNR Isolated O:PSAV Isolated O:STAAUR Isolated Organism: 2.2 Antibiotic Interpretation SANDHYA Status Amikacin Amikacin S F Cefepime Cefepime S F Ceftazidime Ceftazidime S F Ciprofloxacin Ciprofloxacin S F Gentamicin Gentamicin S F Imipenem Imipenem S F Levofloxacin Levofloxacin S F Meropenem Meropenem S F Piperacillin Piperacillin S F Ticarcillin Ticarcillin S F Tobramycin Tobramycin S F Organism: 2.3 Antibiotic Interpretation SANDHYA Status Ciprofloxacin Ciprofloxacin S F Erythromycin Erythromycin S F Gentamicin Gentamicin S F Levofloxacin Levofloxacin S F Linezolid Linezolid S F Moxifloxacin Moxifloxacin S F Oxacillin Oxacillin S F Penicillin Penicillin R F Quinupristin/Dalfopri stin Quinupristin/Dalfopri stin S F Rifampin Rifampin S F Tetracycline Tetracycline S F Trimethoprim/Sulfamet hoxazole Trimethoprim/Sulfamet hoxazole S F Vancomycin Vancomycin S F Clindamycin Clindamycin S F Aerobic Culture See Below For Report Aerobic Culture Organism: Staphylococcus aureus : O:GNR Isolated O:PSAV Isolated O:KRISHNAALBERTO Isolated Organism: 2.2 Antibiotic Interpretation SANDHYA Status Amikacin Amikacin S F Cefepime Cefepime S F Ceftazidime Ceftazidime S F Ciprofloxacin Ciprofloxacin S F Gentamicin Gentamicin S F Imipenem Imipenem S F Levofloxacin Levofloxacin S F Meropenem Meropenem S F Piperacillin Piperacillin S F Ticarcillin Ticarcillin S F Tobramycin Tobramycin S F Organism: 2.3 Antibiotic Interpretation SANDHYA Status Ciprofloxacin Ciprofloxacin S F Erythromycin Erythromycin S F Gentamicin Gentamicin S F Levofloxacin Levofloxacin S F Linezolid Linezolid S F Moxifloxacin Moxifloxacin S F Oxacillin Oxacillin S F Penicillin Penicillin R F Quinupristin/Dalfopri stin Quinupristin/Dalfopri stin S F Rifampin Rifampin S F Tetracycline Tetracycline S F Trimethoprim/Sulfamet hoxazole Trimethoprim/Sulfamet hoxazole S F Vancomycin Vancomycin S F Clindamycin Clindamycin S F Aerobic Culture See Below For Report Aerobic Culture Organism: Staphylococcus aureus : O:GNR Isolated O:PSAV Isolated O:STAAUR Isolated Organism: 2.2 Antibiotic Interpretation SANDHYA Status Amikacin Amikacin S F Cefepime Cefepime S F Ceftazidime Ceftazidime S F Ciprofloxacin Ciprofloxacin S F Gentamicin Gentamicin S F Imipenem Imipenem S F Levofloxacin Levofloxacin S F Meropenem Meropenem S F Piperacillin Piperacillin S F Ticarcillin Ticarcillin S F Tobramycin Tobramycin S F Organism: 2.3 Antibiotic Interpretation SANDHYA Status Ciprofloxacin Ciprofloxacin S F Erythromycin Erythromycin S F Gentamicin Gentamicin S F Levofloxacin Levofloxacin S F Linezolid Linezolid S F Moxifloxacin Moxifloxacin S F Oxacillin Oxacillin S F Penicillin Penicillin R F Quinupristin/Dalfopri stin Quinupristin/Dalfopri stin S F Rifampin Rifampin S F Tetracycline Tetracycline S F Trimethoprim/Sulfamet hoxazole Trimethoprim/Sulfamet hoxazole S F Vancomycin Vancomycin S F Clindamycin Clindamycin S F Aerobic Culture See Below For Report Aerobic Culture Organism: Staphylococcus aureus : O:GNR Isolated O:PSAV [facility]olated O:[facility] Isolated Organism: 2.2 Antibiotic Interpretation SANDHYA Status Amikacin Amikacin S F Cefepime Cefepime S F Ceftazidime Ceftazidime S F Ciprofloxacin Ciprofloxacin S F Gentamicin Gentamicin S F Imipenem Imipenem S F Levofloxacin Levofloxacin S F Meropenem Meropenem S F Piperacillin Piperacillin S F Ticarcillin Ticarcillin S F Tobramycin Tobramycin S F Organism: 2.3 Antibiotic Interpretation SANDHYA Status Ciprofloxacin Ciprofloxacin S F Erythromycin Erythromycin S F Gentamicin Gentamicin S F Levofloxacin Levofloxacin S F Linezolid Linezolid S F Moxifloxacin Moxifloxacin S F Oxacillin Oxacillin S F Penicillin Penicillin R F Quinupristin/Dalfopri stin Quinupristin/Dalfopri stin S F Rifampin Rifampin S F Tetracycline Tetracycline S F Trimethoprim/Sulfamet hoxazole Trimethoprim/Sulfamet hoxazole S F Vancomycin Vancomycin S F Clindamycin Clindamycin S F Aerobic Culture See Below For Report Aerobic Culture Organism: Staphylococcus aureus : O:GNR Isolated O:PSAV Isolated O:STAAUR Isolated Organism: 2.2 Antibiotic Interpretation SANDHYA Status Amikacin Amikacin S F Cefepime Cefepime S F Ceftazidime Ceftazidime S F Ciprofloxacin Ciprofloxacin S F Gentamicin Gentamicin S F Imipenem Imipenem S F Levofloxacin Levofloxacin S F Meropenem Meropenem S F Piperacillin Piperacillin S F Ticarcillin Ticarcillin S F Tobramycin Tobramycin S F Organism: 2.3 Antibiotic Interpretation SANDHYA Status Ciprofloxacin Ciprofloxacin S F Erythromycin Erythromycin S F Gentamicin Gentamicin S F Levofloxacin Levofloxacin S F Linezolid Linezolid S F Moxifloxacin Moxifloxacin S F Oxacillin Oxacillin S F Penicillin Penicillin R F Quinupristin/Dalfopri stin Quinupristin/Dalfopri stin S F Rifampin Rifampin S F Tetracycline Tetracycline S F Trimethoprim/Sulfamet hoxazole Trimethoprim/Sulfamet hoxazole S F Vancomycin Vancomycin S F Clindamycin Clindamycin S F Aerobic Culture See Below For Report Aerobic Culture Organism: Staphylococcus aureus : O:GNR Isolated O:PSAV Isolated O:STAAUR Isolated Organism: 2.2 Antibiotic Interpretation SANDHYA Status Amikacin Amikacin S F Cefepime Cefepime S F Ceftazidime Ceftazidime S F Ciprofloxacin Ciprofloxacin S F Gentamicin Gentamicin S F Imipenem Imipenem S F Levofloxacin Levofloxacin S F Meropenem Meropenem S F Piperacillin Piperacillin S F Ticarcillin Ticarcillin S F Tobramycin Tobramycin S F Organism: 2.3 Antibiotic Interpretation SANDHYA Status Ciprofloxacin Ciprofloxacin S F Erythromycin Erythromycin S F Gentamicin Gentamicin S F Levofloxacin Levofloxacin S F Linezolid Linezolid S F Moxifloxacin Moxifloxacin S F Oxacillin Oxacillin S F Penicillin Penicillin R F Quinupristin/Dalfopri stin Quinupristin/Dalfopri stin S F Rifampin Rifampin S F Tetracycline Tetracycline S F Trimethoprim/Sulfamet hoxazole Trimethoprim/Sulfamet hoxazole S F Vancomycin Vancomycin S F Clindamycin Clindamycin S F Performing Lab: see note LC - [facility] LB SEE REPORT - [employer] Professor Id information not found for OB[employer]-specific theater [employer] producer legend Anaerobic Culture Reviewed date:11/11/2023 03:26:07 PM Interpretation: Performing Lab: Notes/Report: [facility] , Anaerobic Culture See Below For Report Anaerobic Culture Anaerobic Culture No anaerobic growth in 72 hours. Anaerobic Culture Performing Lab: see note LC - [facility] LB CBC AUTO DIFF Reviewed date:11/11/2023 03:26:07 PM Interpretation: Performing Lab: Notes/Report: [facility] , White Blood Count 3.5 4.0-11.0 10 3/uL Red Blood Count 3.80 4.20-5.40 10 6/uL Hemoglobin 9.7 12.0-16.0 g/dL Hematocrit 31.4 36.0-48.0 % Mean Corpuscular Volume 82.6 81.0-99.0 fL Mean Corpuscular Hemoglobin 25.5 26.7-34.0 pg Mean Corpuscular HGB Conc 30.9 29.9-35.2 g/dL Red Cell Distribution Width 14.6 11.0-15.0 % Platelet Count 329 150-450 10 3/uL Mean Platelet Volume 11.3 9.5-13.5 fL Neutrophils Percent Auto 68.5 43.0-75.0 % Lymphocytes Percent Auto 23.2 20.5-60.0 % Monocytes Percent Auto 7.4 1.7-12.0 % Eosinophils Percent Auto 0.3 0.9-7.0 % Basophils Percent Auto 0.6 0.2-2.0 % Immature Granulocytes Pct Auto 0.0 0.0-0.5 % Neutrophils Absolute Auto 2.4 1.4-6.5 10 3/uL Lymphocytes Absolute Auto 0.8 1.2-3.8 10 3/uL Monocytes Absolute Auto 0.3 0.3-0.8 10 3/uL Eosinophils Absolute Auto 0.0 0.0-0.7 10 3/uL Basophils Absolute Auto 0.0 0.0-0.1 10 3/uL Immature Granulocytes Abs Auto 0.00 0.00-0.03 10 3/uL Performing Lab: see note ML - [facility] LB MAGNESIUM Reviewed date:11/11/2023 03:26:07 PM Interpretation: Performing Lab: Notes/Report: [facility] , Magnesium 2.1 1.8-2.4 mg/dL Performing Lab: see note ML - [facility] LB PHOSPHORUS Reviewed date:11/11/2023 03:26:07 PM Interpretation: Performing Lab: Notes/Report: [facility] , Phosphorus 2.3 2.6-4.7 mg/dL Performing Lab: see note ML - [facility] LB PROF 14(COMP METB) Reviewed date:11/11/2023 03:26:07 PM Interpretation: Performing Lab: Notes/Report: [facility] , Sodium 137 136-145 mmol/L Potassium 4.3 3.5-5.1 mmol/L Chloride 103 98-107 mmol/L Carbon Dioxide 29.7 21.0-32.0 mmol/L Anion Gap 8.6 Glucose 85 74-106 mg/dL Blood Urea Nitrogen 6.0 7.0-18.0 mg/dL Creatinine 0.80 0.55-1.02 mg/dL Estimated GFR ( [place] >60 >=60 Estimated GFR (Non- [place] >60 >=60 BUN Creatinine Ratio 7.5 Calcium 8.6 8.5-10.1 mg/dL Bilirubin Total 0.3 0.2-1.0 mg/dL Aspartate Amino Transferase 26 15-37 U/L Alanine Aminotransferase 22 14-59 U/L Alkaline Phosphatase 71 46-116 U/L Total Protein 6.9 6.4-8.2 g/dL Albumin Level 3.7 3.4-5.0 g/dL Globulin 3.2 Albumin Globulin Ratio 1.2 Performing Lab: see note ML - [facility] LB TRIGLYCERIDE Reviewed date:11/11/2023 03:26:07 PM Interpretation: Performing Lab: Notes/Report: [facility] , Triglycerides 83 <=150 mg/dL Performing Lab: see note ML - [facility] LB CBC AUTO DIFF Reviewed date:11/20/2023 08:26:20 PM Interpretation: Performing Lab: Notes/Report: [facility] , White Blood Count 3.7 4.0-11.0 10 3/uL Red Blood Count 3.93 4.20-5.40 10 6/uL Hemoglobin 10.1 12.0-16.0 g/dL Hematocrit 32.3 36.0-48.0 % Mean Corpuscular Volume 82.2 81.0-99.0 fL Mean Corpuscular Hemoglobin 25.7 26.7-34.0 pg Mean Corpuscular HGB Conc 31.3 29.9-35.2 g/dL Red Cell Distribution Width 14.7 11.0-15.0 % Platelet Count 320 150-450 10 3/uL Mean Platelet Volume 10.7 9.5-13.5 fL Neutrophils Percent Auto 36.3 43.0-75.0 % Lymphocytes Percent Auto 49.2 20.5-60.0 % Monocytes Percent Auto 10.9 1.7-12.0 % Eosinophils Percent Auto 1.9 0.9-7.0 % Basophils Percent Auto 1.4 0.2-2.0 % Immature Granulocytes Pct Auto 0.3 0.0-0.5 % Neutrophils Absolute Auto 1.3 1.4-6.5 10 3/uL Lymphocytes Absolute Auto 1.8 1.2-3.8 10 3/uL Monocytes Absolute Auto 0.4 0.3-0.8 10 3/uL Eosinophils Absolute Auto 0.1 0.0-0.7 10 3/uL Basophils Absolute Auto 0.1 0.0-0.1 10 3/uL Immature Granulocytes Abs Auto 0.01 0.00-0.03 10 3/uL Performing Lab: see note ML - [facility] LB PROF 14(COMP METB) Reviewed date:11/20/2023 08:26:20 PM Interpretation: Performing Lab: Notes/Report: [facility] , Sodium 138 136-145 mmol/L Potassium 3.8 3.5-5.1 mmol/L Chloride 108 98-107 mmol/L Carbon Dioxide 23.1 21.0-32.0 mmol/L Anion Gap 10.7 Glucose 91 74-106 mg/dL Blood Urea Nitrogen 7.0 7.0-18.0 mg/dL Creatinine 0.85 0.55-1.02 mg/dL Estimated GFR ( [place] >60 >=60 mL/min/1.73m 2 Estimated GFR (Non- Caroline >60 >=60 mL/min/1.73m 2 BUN Creatinine Ratio 8.2 Calcium 8.3 8.5-10.1 mg/dL Bilirubin Total 0.2 0.2-1.0 mg/dL Aspartate Amino Transferase 48 15-37 U/L Alanine Aminotransferase 32 14-59 U/L Alkaline Phosphatase 84 46-116 U/L Total Protein 6.4 6.4-8.2 g/dL Albumin Level 3.3 3.4-5.0 g/dL Globulin 3.1 Albumin Globulin Ratio 1.1 Performing Lab: see note - [facility] LB UA (CLEAN or CATCH) MANAGER ACTION or M ICRO IF IND. Reviewed date:11/20/2023 08:26:20 PM Interpretation: Performing Lab: Notes/Report: [facility] , Color Urine YELLOW YELLOW Clarity Urine CLEAR CLEAR Specific [place] Urine 1.015 1.005-1.025 pH Urine 7.0 5.0-9.0 Protein Urine NEGATIVE NEG/TRACE mg/dL Glucose Urine UA NEGATIVE NEGATIVE mg/dL Bilirubin Urine NEGATIVE NEGATIVE Ketones Urine NEGATIVE NEGATIVE mg/dL Blood Urine NEGATIVE NEGATIVE Nitrite Urine NEGATIVE NEGATIVE Urobilinogen Urine 0.2 0.2-1.0 EU/dL Leukocyte Esterase Urine NEGATIVE NEGATIVE Urine Microscopic Indicated NO Performing Lab: see note - [facility] LB Aerobic Culture Reviewed date:11/24/2023 08:11:28 PM Interpretation: Performing Lab: Notes/Report: [facility] , Aerobic Culture See Below For Report Aerobic Culture Organism: Gram negative jeffery : O:GNR Isolated O:PSAV Isolated Organism: 1.2 Antibiotic Interpretation SANDHYA Status Aerobic Culture *ABNORMAL* Aerobic Culture Organism: Gram negative jeffery : O:GNR Isolated O:PSAV Isolated Organism: 1.2 Antibiotic Interpretation SANDHYA Status Aerobic Culture Heavy growth Aerobic Culture Organism: Gram negative jeffery : O:GNR Isolated O:PSAV Isolated Organism: 1.2 Antibiotic Interpretation SANDHYA Status Aerobic Culture Gram negative jeffery Aerobic Culture Organism: Gram negative jeffery : O:GNR Isolated O:PSAV Isolated Organism: 1.2 Antibiotic Interpretation SANDHYA Status Aerobic Culture Organism: Pseudomona s aeruginosa.. : Aerobic Culture Organism: Gram negative jeffery : O:GNR Isolated O:PSAV Isolated Organism: 1.2 Antibiotic Interpretation SANDHYA Status Aerobic Culture *ABNORMAL* Aerobic Culture Organism: Gram negative jeffery : O:GNR Isolated O:PSAV Isolated Organism: 1.2 Antibiotic Interpretation SANDHYA Status Aerobic Culture Heavy growth Aerobic Culture Organism: Gram negative jeffery : O:GNR Isolated O:PSAV Isolated Organism: 1.2 Antibiotic Interpretation SANDHYA Status Aerobic Culture Pseudomonas aeruginosa.. Aerobic Culture Organism: Gram negative jeffery : O:GNR Isolated O:PSAV Isolated Organism: 1.2 Antibiotic Interpretation SANDHYA Status Aerobic Culture See Below For Report Aerobic Culture Organism: Gram negative jeffery : O:GNR Isolated O:PSAV Isolated Organism: 1.2 Antibiotic Interpretation SANDHYA Status Aerobic Culture See Below For Report Aerobic Culture Organism: Gram negative jeffery : O:GNR Isolated O:PSAV Isolated Organism: 1.2 Antibiotic Interpretation SANDHYA Status Aerobic Culture Performed at: [facility] Aerobic Culture Organism: Gram negative jeffery : O:GNR Isolated O:PSAV Isolated Organism: 1.2 Antibiotic Interpretation SANDHAY Status Aerobic Culture [address] [place], [place] [id number] Aerobic Culture Organism: Gram negative jeffery : O:GNR Isolated O:PSAV Isolated Organism: 1.2 Antibiotic Interpretation SANDHYA Status Aerobic Culture Oceanic Sciences Professor: Thierno Almanza PhD, Phone: [phone] Aerobic Culture Organism: Gram negative jeffery : O:GNR Isolated O:PSAV Isolated Organism: 1.2 Antibiotic Interpretation SANDHYA Status Aerobic Culture See Below For Report Aerobic Culture Organism: Gram negative jeffery : O:GNR Isolated O:PSAV Isolated Organism: 1.2 Antibiotic Interpretation SANDHYA Status Aerobic Culture Amikacin S F Aerobic Culture Organism: Gram negative jeffery : O:GNR Isolated O:PSAV Isolated Organism: 1.2 Antibiotic Interpretation SANDHYA Status Aerobic Culture Cefepime S F Aerobic Culture Organism: Gram negative jeffery : O:GNR Isolated O:PSAV Isolated Organism: 1.2 Antibiotic Interpretation SANDHYA Status Aerobic Culture Ceftazidime S F Aerobic Culture Organism: Gram negative jeffery : O:GNR Isolated O:PSAV Isolated Organism: 1.2 Antibiotic Interpretation SANDHYA Status Aerobic Culture Gentamicin S F Aerobic Culture Organism: Gram negative jeffery : O:GNR Isolated O:PSAV Isolated Organism: 1.2 Antibiotic Interpretation SANDHYA Status Aerobic Culture Imipenem I F Aerobic Culture Organism: Gram negative jeffery : O:GNR Isolated O:PSAV Isolated Organism: 1.2 Antibiotic Interpretation SANDHYA Status Aerobic Culture Levofloxacin R F Aerobic Culture Organism: Gram negative jeffery : O:GNR Isolated O:PSAV Isolated Organism: 1.2 Antibiotic Interpretation SANDHYA Status Aerobic Culture Meropenem S F Aerobic Culture Organism: Gram negative jeffery : O:GNR Isolated O:PSAV Isolated Organism: 1.2 Antibiotic Interpretation SANDHYA Status Aerobic Culture Piperacillin S F Aerobic Culture Organism: Gram negative jeffery : O:GNR Isolated O:PSAV Isolated Organism: 1.2 Antibiotic Interpretation SANDHYA Status Aerobic Culture Ticarcillin S F Aerobic Culture Organism: Gram negative jeffery : O:GNR Isolated O:PSAV Isolated Organism: 1.2 Antibiotic Interpretation SANDHYA Status Aerobic Culture Tobramycin S F Aerobic Culture Organism: Gram negative jeffery : O:GNR Isolated O:PSAV Isolated Organism: 1.2 Antibiotic Interpretation SANDHYA Status Performing Lab: see note - [facility] LB SEE REPORT - Geography Professor Id information not found for OBX-specific theater company producer legend Anaerobic Culture Reviewed date:11/25/2023 07:16:42 PM Interpretation: Performing Lab: Notes/Report: [facility] , Anaerobic Culture See Below For Report Anaerobic Culture Anaerobic Culture No anaerobic growth in 72 hours. Anaerobic Culture Performing Lab: see note - [facility] LB Aerobic Culture Reviewed date:11/25/2023 07:16:42 PM Interpretation: Performing Lab: Notes/Report: [facility] , Aerobic Culture See Below For Report Aerobic Culture Organism: Gram negative jeffery : O:GNR Isolated O:PSAV Isolated Organism: 2.2 Antibiotic Interpretation SANDHYA Status Amikacin Amikacin S F Cefepime Cefepime S F Ceftazidime Ceftazidime S F Gentamicin Gentamicin S F Imipenem Imipenem I F Levofloxacin Levofloxacin R F Meropenem Meropenem S F Piperacillin Piperacillin S F Ticarcillin Ticarcillin S F Tobramycin Tobramycin S F Aerobic Culture *ABNORMAL* Aerobic Culture Organism: Gram negative jeffery : O:GNR Isolated O:PSAV Isolated Organism: 2.2 Antibiotic Interpretation SANDHYA Status Amikacin Amikacin S F Cefepime Cefepime S F Ceftazidime Ceftazidime S F Gentamicin Gentamicin S F Imipenem Imipenem I F Levofloxacin Levofloxacin R F Meropenem Meropenem S F Piperacillin Piperacillin S F Ticarcillin Ticarcillin S F Tobramycin Tobramycin S F Aerobic Culture Heavy growth Aerobic Culture Organism: Gram negative jeffery : O:GNR Isolated O:PSAV Isolated Organism: 2.2 Antibiotic Interpretation SANDHYA Status Amikacin Amikacin S F Cefepime Cefepime S F Ceftazidime Ceftazidime S F Gentamicin Gentamicin S F Imipenem Imipenem I F Levofloxacin Levofloxacin R F Meropenem Meropenem S F Piperacillin Piperacillin S F Ticarcillin Ticarcillin S F Tobramycin Tobramycin S F Aerobic Culture Gram negative jeffery Aerobic Culture Organism: Gram negative jeffery : O:GNR Isolated O:PSAV Isolated Organism: 2.2 Antibiotic Interpretation SANDHYA Status Amikacin Amikacin S F Cefepime Cefepime S F Ceftazidime Ceftazidime S F Gentamicin Gentamicin S F Imipenem Imipenem I F Levofloxacin Levofloxacin R F Meropenem Meropenem S F Piperacillin Piperacillin S F Ticarcillin Ticarcillin S F Tobramycin Tobramycin S F Aerobic Culture Organism: Pseudomona s aeruginosa.. : Aerobic Culture Organism: Gram negative jeffery : O:GNR Isolated O:PSAV Isolated Organism: 2.2 Antibiotic Interpretation SANDHYA Status Amikacin Amikacin S F Cefepime Cefepime S F Ceftazidime Ceftazidime S F Gentamicin Gentamicin S F Imipenem Imipenem I F Levofloxacin Levofloxacin R F Meropenem Meropenem S F Piperacillin Piperacillin S F Ticarcillin Ticarcillin S F Tobramycin Tobramycin S F Aerobic Culture *ABNORMAL* Aerobic Culture Organism: Gram negative jeffery : O:GNR Isolated O:PSAV Isolated Organism: 2.2 Antibiotic Interpretation SANDHYA Status Amikacin Amikacin S F Cefepime Cefepime S F Ceftazidime Ceftazidime S F Gentamicin Gentamicin S F Imipenem Imipenem I F Levofloxacin Levofloxacin R F Meropenem Meropenem S F Piperacillin Piperacillin S F Ticarcillin Ticarcillin S F Tobramycin Tobramycin S F Aerobic Culture Heavy growth Aerobic Culture Organism: Gram negative jeffery : O:GNR Isolated O:PSAV Isolated Organism: 2.2 Antibiotic Interpretation SANDHYA Status Amikacin Amikacin S F Cefepime Cefepime S F Ceftazidime Ceftazidime S F Gentamicin Gentamicin S F Imipenem Imipenem I F Levofloxacin Levofloxacin R F Meropenem Meropenem S F Piperacillin Piperacillin S F Ticarcillin Ticarcillin S F Tobramycin Tobramycin S F Aerobic Culture Pseudomonas aeruginosa.. Aerobic Culture Organism: Gram negative jeffery : O:GNR Isolated O:PSAV Isolated Organism: 2.2 Antibiotic Interpretation SANDHYA Status Amikacin Amikacin S F Cefepime Cefepime S F Ceftazidime Ceftazidime S F Gentamicin Gentamicin S F Imipenem Imipenem I F Levofloxacin Levofloxacin R F Meropenem Meropenem S F Piperacillin Piperacillin S F Ticarcillin Ticarcillin S F Tobramycin Tobramycin S F Aerobic Culture See Below For Report Aerobic Culture Organism: Gram negative jeffery : O:GNR Isolated O:PSAV Isolated Organism: 2.2 Antibiotic Interpretation SANDHYA Status Amikacin Amikacin S F Cefepime Cefepime S F Ceftazidime Ceftazidime S F Gentamicin Gentamicin S F Imipenem Imipenem I F Levofloxacin Levofloxacin R F Meropenem Meropenem S F Piperacillin Piperacillin S F Ticarcillin Ticarcillin S F Tobramycin Tobramycin S F Aerobic Culture See Below For Report Aerobic Culture Organism: Gram negative jeffery : O:GNR Isolated O:PSAV Isolated Organism: 2.2 Antibiotic Interpretation SANDHYA Status Amikacin Amikacin S F Cefepime Cefepime S F Ceftazidime Ceftazidime S F Gentamicin Gentamicin S F Imipenem Imipenem I F Levofloxacin Levofloxacin R F Meropenem Meropenem S F Piperacillin Piperacillin S F Ticarcillin Ticarcillin S F Tobramycin Tobramycin S F Aerobic Culture Performed at: [facility] Aerobic Culture Organism: Gram negative jeffery : O:GNR Isolated O:PSAV Isolated Organism: 2.2 Antibiotic Interpretation SANDHYA Status Amikacin Amikacin S F Cefepime Cefepime S F Ceftazidime Ceftazidime S F Gentamicin Gentamicin S F Imipenem Imipenem I F Levofloxacin Levofloxacin R F Meropenem Meropenem S F Piperacillin Piperacillin S F Ticarcillin Ticarcillin S F Tobramycin Tobramycin S F Aerobic Culture [address] [place], [place] [id number] Aerobic Culture Organism: Gram negative jeffery : O:GNR Isolated O:PSAV Isolated Organism: 2.2 Antibiotic Interpretation SANDHYA Status Amikacin Amikacin S F Cefepime Cefepime S F Ceftazidime Ceftazidime S F Gentamicin Gentamicin S F Imipenem Imipenem I F Levofloxacin Levofloxacin R F Meropenem Meropenem S F Piperacillin Piperacillin S F Ticarcillin Ticarcillin S F Tobramycin Tobramycin S F Aerobic Culture Oceanic Sciences Professor: Thierno Almanza PhD, Phone: [phone] Aerobic Culture Organism: Gram negative jeffery : O:GNR Isolated O:PSAV Isolated Organism: 2.2 Antibiotic Interpretation SANDHYA Status Amikacin Amikacin S F Cefepime Cefepime S F Ceftazidime Ceftazidime S F Gentamicin Gentamicin S F Imipenem Imipenem I F Levofloxacin Levofloxacin R F Meropenem Meropenem S F Piperacillin Piperacillin S F Ticarcillin Ticarcillin S F Tobramycin Tobramycin S F Aerobic Culture See Below For Report Aerobic Culture Organism: Gram negative jeffery : O:GNR Isolated O:PSAV Isolated Organism: 2.2 Antibiotic Interpretation SANDHYA Status Amikacin Amikacin S F Cefepime Cefepime S F Ceftazidime Ceftazidime S F Gentamicin Gentamicin S F Imipenem Imipenem I F Levofloxacin Levofloxacin R F Meropenem Meropenem S F Piperacillin Piperacillin S F Ticarcillin Ticarcillin S F Tobramycin Tobramycin S F Aerobic Culture See Below For Report Aerobic Culture Organism: Gram negative jeffery : O:GNR Isolated O:PSAV Isolated Organism: 2.2 Antibiotic Interpretation SANDHYA Status Amikacin Amikacin S F Cefepime Cefepime S F Ceftazidime Ceftazidime S F Gentamicin Gentamicin S F Imipenem Imipenem I F Levofloxacin Levofloxacin R F Meropenem Meropenem S F Piperacillin Piperacillin S F Ticarcillin Ticarcillin S F Tobramycin Tobramycin S F Aerobic Culture See Below For Report Aerobic Culture Organism: Gram negative jeffery : O:GNR Isolated O:PSAV Isolated Organism: 2.2 Antibiotic Interpretation SANDHYA Status Amikacin Amikacin S F Cefepime Cefepime S F Ceftazidime Ceftazidime S F Gentamicin Gentamicin S F Imipenem Imipenem I F Levofloxacin Levofloxacin R F Meropenem Meropenem S F Piperacillin Piperacillin S F Ticarcillin Ticarcillin S F Tobramycin Tobramycin S F Aerobic Culture See Below For Report Aerobic Culture Organism: Gram negative jeffery : O:GNR Isolated O:PSAV Isolated Organism: 2.2 Antibiotic Interpretation SANDHYA Status Amikacin Amikacin S F Cefepime Cefepime S F Ceftazidime Ceftazidime S F Gentamicin Gentamicin S F Imipenem Imipenem I F Levofloxacin Levofloxacin R F Meropenem Meropenem S F Piperacillin Piperacillin S F Ticarcillin Ticarcillin S F Tobramycin Tobramycin S F Aerobic Culture See Below For Report Aerobic Culture Organism: Gram negative jeffery : O:GNR Isolated O:PSAV Isolated Organism: 2.2 Antibiotic Interpretation SANDHYA Status Amikacin Amikacin S F Cefepime Cefepime S F Ceftazidime Ceftazidime S F Gentamicin Gentamicin S F Imipenem Imipenem I F Levofloxacin Levofloxacin R F Meropenem Meropenem S F Piperacillin Piperacillin S F Ticarcillin Ticarcillin S F Tobramycin Tobramycin S F Aerobic Culture See Below For Report Aerobic Culture Organism: Gram negative jeffery : O:GNR Isolated O:PSAV Isolated Organism: 2.2 Antibiotic Interpretation SANDHYA Status Amikacin Amikacin S F Cefepime Cefepime S F Ceftazidime Ceftazidime S F Gentamicin Gentamicin S F Imipenem Imipenem I F Levofloxacin Levofloxacin R F Meropenem Meropenem S F Piperacillin Piperacillin S F Ticarcillin Ticarcillin S F Tobramycin Tobramycin S F Aerobic Culture See Below For Report Aerobic Culture Organism: Gram negative jeffery : O:GNR Isolated O:PSAV Isolated Organism: 2.2 Antibiotic Interpretation SANDHYA Status Amikacin Amikacin S F Cefepime Cefepime S F Ceftazidime Ceftazidime S F Gentamicin Gentamicin S F Imipenem Imipenem I F Levofloxacin Levofloxacin R F Meropenem Meropenem S F Piperacillin Piperacillin S F Ticarcillin Ticarcillin S F Tobramycin Tobramycin S F Aerobic Culture See Below For Report Aerobic Culture Organism: Gram negative jeffery : O:GNR Isolated O:PSAV Isolated Organism: 2.2 Antibiotic Interpretation SANDHYA Status Amikacin Amikacin S F Cefepime Cefepime S F Ceftazidime Ceftazidime S F Gentamicin Gentamicin S F Imipenem Imipenem I F Levofloxacin Levofloxacin R F Meropenem Meropenem S F Piperacillin Piperacillin S F Ticarcillin Ticarcillin S F Tobramycin Tobramycin S F Aerobic Culture See Below For Report Aerobic Culture Organism: Gram negative jeffery : O:GNR Isolated O:PSAV Isolated Organism: 2.2 Antibiotic Interpretation SANDHYA Status Amikacin Amikacin S F Cefepime Cefepime S F Ceftazidime Ceftazidime S F Gentamicin Gentamicin S F Imipenem Imipenem I F Levofloxacin Levofloxacin R F Meropenem Meropenem S F Piperacillin Piperacillin S F Ticarcillin Ticarcillin S F Tobramycin Tobramycin S F Aerobic Culture See Below For Report Aerobic Culture Organism: Gram negative jeffery : O:GNR Isolated O:PSAV Isolated Organism: 2.2 Antibiotic Interpretation SANDHYA Status Amikacin Amikacin S F Cefepime Cefepime S F Ceftazidime Ceftazidime S F Gentamicin Gentamicin S F Imipenem Imipenem I F Levofloxacin Levofloxacin R F Meropenem Meropenem S F Piperacillin Piperacillin S F Ticarcillin Ticarcillin S F Tobramycin Tobramycin S F Aerobic Culture See Below For Report Aerobic Culture Organism: Gram negative jeffery : O:GNR Isolated O:PSAV Isolated Organism: 2.2 Antibiotic Interpretation SANDHYA Status Amikacin Amikacin S F Cefepime Cefepime S F Ceftazidime Ceftazidime S F Gentamicin Gentamicin S F Imipenem Imipenem I F Levofloxacin Levofloxacin R F Meropenem Meropenem S F Piperacillin Piperacillin S F Ticarcillin Ticarcillin S F Tobramycin Tobramycin S F Performing Lab: see note LC - [facility] LB SEE REPORT - Geography Professor Id information not found for OBX-specific theater company producer legend CBC AUTO DIFF Reviewed date:11/25/2023 07:16:42 PM Interpretation: Performing Lab: Notes/Report: [facility] , White Blood Count 5.5 4.0-11.0 10 3/uL Red Blood Count 3.76 4.20-5.40 10 6/uL Hemoglobin 9.9 12.0-16.0 g/dL Hematocrit 32.3 36.0-48.0 % Mean Corpuscular Volume 85.9 81.0-99.0 fL Mean Corpuscular Hemoglobin 26.3 26.7-34.0 pg Mean Corpuscular HGB Conc 30.7 29.9-35.2 g/dL Red Cell Distribution Width 17.2 11.0-15.0 % Platelet Count 260 150-450 10 3/uL Mean Platelet Volume 11.9 9.5-13.5 fL Neutrophils Percent Auto 81.6 43.0-75.0 % Lymphocytes Percent Auto 14.3 20.5-60.0 % Monocytes Percent Auto 3.1 1.7-12.0 % Eosinophils Percent Auto 0.4 0.9-7.0 % Basophils Percent Auto 0.4 0.2-2.0 % Immature Granulocytes Pct Auto 0.2 0.0-0.5 % Neutrophils Absolute Auto 4.5 1.4-6.5 10 3/uL Lymphocytes Absolute Auto 0.8 1.2-3.8 10 3/uL Monocytes Absolute Auto 0.2 0.3-0.8 10 3/uL Eosinophils Absolute Auto 0.0 0.0-0.7 10 3/uL Basophils Absolute Auto 0.0 0.0-0.1 10 3/uL Immature Granulocytes Abs Auto 0.01 0.00-0.03 10 3/uL Performing Lab: see note ML - [facility] LB FREE T3 Reviewed date:11/25/2023 07:16:42 PM Interpretation: Performing Lab: Notes/Report: [facility] DR[facility] , Free T3 2.07 2.18-3.98 pg/mL Performing Lab: see note ML - [facility] LB MAGNESIUM Reviewed date:11/25/2023 07:16:42 PM Interpretation: Performing Lab: Notes/Report: [facility] , Magnesium 1.9 1.8-2.4 mg/dL Performing Lab: see note ML - [facility] LB PHOSPHORUS Reviewed date:11/25/2023 07:16:42 PM Interpretation: Performing Lab: Notes/Report: [facility] , Phosphorus 2.4 2.6-4.7 mg/dL Performing Lab: see note - [facility] LB PROF 14(COMP METB) Reviewed date:11/25/2023 07:16:42 PM Interpretation: Performing Lab: Notes/Report: [facility] , Sodium 139 136-145 mmol/L Potassium 3.9 3.5-5.1 mmol/L Chloride 106 98-107 mmol/L Carbon Dioxide 24.5 21.0-32.0 mmol/L Anion Gap 12.4 Glucose 79 74-106 mg/dL Blood Urea Nitrogen 5.0 7.0-18.0 mg/dL Creatinine 0.84 0.55-1.02 mg/dL Estimated GFR ( [place] >60 >=60 mL/min/1.73m 2 Estimated GFR (Non- Caroline >60 >=60 mL/min/1.73m 2 BUN Creatinine Ratio 6.0 Calcium 7.9 8.5-10.1 mg/dL Bilirubin Total 0.2 0.2-1.0 mg/dL Aspartate Amino Transferase 35 15-37 U/L Alanine Aminotransferase 35 14-59 U/L Alkaline Phosphatase 70 46-116 U/L Total Protein 6.1 6.4-8.2 g/dL Albumin Level 3.2 3.4-5.0 g/dL Globulin 2.9 Albumin Globulin Ratio 1.1 Performing Lab: see note - [facility] LB PROLACTIN Reviewed date:11/26/2023 12:56:46 PM Interpretation: Performing Lab: Notes/Report: [facility] , Prolactin 8.4 4.8-33.4 ng/mL Performing Lab: see note [facility] LB T4 Reviewed date:11/25/2023 07:16:42 PM Interpretation: Performing Lab: Notes/Report: [facility] DR[facility] , T4 Thyroxine 7.60 4.80-13.90 ug/dL Performing Lab: see note [facility] LB TSH Reviewed date:11/25/2023 07:16:42 PM Interpretation: Performing Lab: Notes/Report: [facility] , Thyroid Stimulating Hormone 1.315 0.358-3.740 uIU/mL Performing Lab: see note - [facility] LB Testosterone Reviewed date:11/26/2023 12:56:46 PM Interpretation: Performing Lab: Notes/Report: [facility] , Testosterone <3 8-60 ng/dL Performing Lab: see note [facility] Progesterone Reviewed date:11/26/2023 12:56:46 PM Interpretation: Performing Lab: Notes/Report: [facility] , Progesterone <0.1 . ng/mL Follicular phase 0.1 - 0.9 Luteal phase 1.8 - 23.9 Ovulation phase 0.1 - 12.0 First trimester 11.0 - 44.3 Second trimester 25.4 - 83.3 Third trimester 58.7 - 214.0 Postmenopausal 0.0 - 0.1 Performed at: [address] [id number] Oceanic Sciences Professor: Daron Almanza PhD, Phone: [phone] Performing Lab: see note [facility] LB FSH Reviewed date:11/26/2023 12:56:46 PM Interpretation: Performing Lab: Notes/Report: [facility] , FSH 3.4 . mIU/mL Adult Female Range Follicular phase 3.5 - 12.5 Ovulation phase 4.7 - 21.5 Luteal phase 1.7 - 7.7 Postmenopausal 25.8 - 134.8 Performing Lab: see note - [facility] LB Estradiol Reviewed date:11/26/2023 12:56:46 PM Interpretation: Performing Lab: Notes/Report: [facility] , Estradiol 170.0 . pg/mL Adult Female Range Follicular phase 12.5 - 166.0 Ovulation phase 85.8 - 498.0 Luteal phase 43.8 - 211.0 Postmenopausal <6.0 - 54.7 1st trimester 215.0 - >4300.0 Kamran ECLIA methodology Performing Lab: see note [facility] LB Testosterone,Free and Total Reviewed date:12/23/2023 07:44:34 PM Interpretation: Performing Lab: Notes/Report: [facility] DR[facility] , Testosterone <3 8-60 ng/dL Free Testosterone(Direct) <0.2 0.0-4.2 pg/mL Performed at: [address] [id number] Oceanic Sciences Professor: Daron Almanza PhD, Phone: [phone] Performed at: [address] [id number] Ocean[employer] Professor: Suhas Ring MD, Phone: [phone] Performing Lab: see note [facility] LB CBC AUTO DIFF Reviewed date:12/22/2023 09:03:29 PM Interpretation: Performing Lab: Notes/Report: [facility] ADROP [facility] , White Blood Count 4.9 4.0-11.0 10 3/uL Red Blood Count 4.41 4.20-5.40 10 6/uL Hemoglobin 12.8 12.0-16.0 g/dL Hematocrit 40.5 36.0-48.0 % Mean Corpuscular Volume 91.8 81.0-99.0 fL Mean Corpuscular Hemoglobin 29.0 26.7-34.0 pg Mean Corpuscular HGB Conc 31.6 29.9-35.2 g/dL Red Cell Distribution Width 19.3 11.0-15.0 % Platelet Count 249 150-450 10 3/uL Mean Platelet Volume 11.7 9.5-13.5 fL Neutrophils Percent Auto 77.1 43.0-75.0 % Lymphocytes Percent Auto 16.8 20.5-60.0 % Monocytes Percent Auto 4.3 1.7-12.0 % Eosinophils Percent Auto 0.8 0.9-7.0 % Basophils Percent Auto 0.8 0.2-2.0 % Immature Granulocytes Pct Auto 0.2 0.0-0.5 % Neutrophils Absolute Auto 3.8 1.4-6.5 10 3/uL Lymphocytes Absolute Auto 0.8 1.2-3.8 10 3/uL Monocytes Absolute Auto 0.2 0.3-0.8 10 3/uL Eosinophils Absolute Auto 0.0 0.0-0.7 10 3/uL Basophils Absolute Auto 0.0 0.0-0.1 10 3/uL Immature Granulocytes Abs Auto 0.01 0.00-0.03 10 3/uL Performing Lab: see note ML - [facility] GLYCOHEMOGLOBIN A1C Reviewed date:12/22/2023 09:03:29 PM Interpretation: Performing Lab: Notes/Report: [facility]DROP [facility] , Glycohemoglobin A1C 4.8 4.5-6.2 % ADA RECOMMENDED LIMIT 4.0 - 6.0 ADA THERAPEUTIC TARGET < 7.0 ACTION SUGGESTED > 7.0 Estimated Average Glucose 91 Performing Lab: see note ML - [facility] LB LAB TESTING Reviewed date:12/31/2023 06:29:26 AM Interpretation: Performing Lab: Notes/Report: [id number] Fatty Acid Profile, Essential [facility] , Miscellaneous Test COMMENT . Test Ordered: [id number] Fatty Acid Profile, Essential Interp, Fatty Acids Profile SP Normal Y8 Reference Range: . Normal fatty acid profile. Results reviewed and interpreted by Doris Odonnell, PhD, [facility] INTERPRETIVE INFORMATION: Fatty Acids Profile, Essential Ser/Plas This test does not screen for disorders of peroxisomal biogenesis/function. This test was developed and its performance characteristics determined by [employer]. It has not been cleared or approved by the US Food and Drug Administration. This test was performed in a CLIA certified laboratory and is intended for clinical purposes. Arachidic Acid, C20:0 34 nmol/mL Y8 Reference Range: 8-43 Arachidonic Acid, C20:4w6 671 nmol/mL Y8 Reference Range: 310-1420 DHA, C22:6w3 90 nmol/mL Y8 Reference Range: 45-365 DPA, C22:5w3 59 nmol/mL Y8 Reference Range: 13-75 DPA, C22:5w6 18 nmol/mL Y8 Reference Range: 6-55 DTA, C22:4w6 28 nmol/mL Y8 Reference Range: 10-40 Docosenoic Acid, C22:1 3 nmol/mL Y8 Reference Range: 1-10 EPA, C20:5w3 74 nmol/mL Y8 Reference Range: 8-130 Hexadecenoic Acid, C16:1w9 54 nmol/mL Y8 Reference Range: 14-95 Lauric Acid, C12:0 18 nmol/mL Y8 Reference Range: 1-200 Linoleic Acid, C18:2w6 3001 nmol/mL Y8 Reference Range: 0093-6881 a-Linolenic Acid, C18:3w3 71 nmol/mL Y8 Reference Range: 20-200 u-r-Tprcbfjou C20:3w6 198 nmol/mL Y8 Reference Range: 45-340 g-Linolenic Acid, C18:3w6 104 nmol/mL Y8 Reference Range: 10-120 Weldon Acid, C20:3w9 27 nmol/mL Y8 Reference Range: 1-35 Myristic Acid, C14:0 123 nmol/mL Y8 Reference Range: 20-520 Nervonic Acid, C24:1w9 116 nmol/mL Y8 Reference Range: 35-145 Oleic Acid, C18:1w9 2918 nmol/mL Y8 Reference Range: 740-3900 Palmitic Acid, C16:0 3079 nmol/mL Y8 Reference Range: 5984-2215 Palmitoleic Acid, C16:1w7 218 nmol/mL Y8 Reference Range: 35-580 Stearic Acid, C18:0 1030 nmol/mL Y8 Reference Range: 280-1250 Vaccenic Acid, C18:1w7 155 nmol/mL Y8 Reference Range: 50-250 Triene Tetraene Ratio 0.040 Y8 Reference Range: 0.004-0.051 Total Saturated Acid 4.3 mmol/L Y8 Reference Range: 1.5-5.3 Total Monounsaturated Acid 3.5 mmol/L Y8 Reference Range: 0.9-4.7 Total Polyunsaturated Ac 4.3 mmol/L Y8 Reference Range: 2.1-6.2 Total w3 0.29 mmol/L Y8 Reference Range: 0.12-0.55 Total w6 4.0 mmol/L Y8 Reference Range: 1.8-5.7 Total Fatty Acids 12.1 mmol/L Y8 Reference Range: 4.5-15.0 EER Fatty Acids Profile, Essrodolfo See Note Y8 Reference Range: . Authorized individuals can access the [employer] Enhanced Report using the following link: [email or web address] . Y8 Reference Range: . Performed at: Y8 - [facility] [address] [place] [id number] Oceanic [employer] Professor: Kirt Murphy [facility], Phone: [phone] Performed at: [facility] [address] [id number] [employer] Professor: Daron Almanza PhD, Phone: [phone] Performing Lab: see note - [facility] LB MAGNESIUM Reviewed date:12/22/2023 09:03:29 PM Interpretation: Performing Lab: Notes/Report: [facility] , Magnesium 2.0 1.8-2.4 mg/dL Performing Lab: see note ML - [facility] LB PHOSPHORUS Reviewed date:12/22/2023 09:03:29 PM Interpretation: Performing Lab: Notes/Report: [facility] , Phosphorus 2.0 2.6-4.7 mg/dL Performing Lab: see note ML - [facility] LB PROF 14(COMP METB) Reviewed date:12/22/2023 09:03:29 PM Interpretation: Performing Lab: Notes/Report: [facility] , Sodium 142 136-145 mmol/L Potassium 4.2 3.5-5.1 mmol/L Chloride 108 98-107 mmol/L Carbon Dioxide 25.7 21.0-32.0 mmol/L Anion Gap 12.5 Glucose 71 74-106 mg/dL Blood Urea Nitrogen 8.0 7.0-18.0 mg/dL Creatinine 0.90 0.55-1.02 mg/dL Estimated GFR ( Shelby >60 >=60 mL/min/1.73m 2 Estimated GFR (Non- Caroline >60 >=60 mL/min/1.73m 2 BUN Creatinine Ratio 8.9 Calcium 8.0 8.5-10.1 mg/dL Bilirubin Total 0.3 0.2-1.0 mg/dL Aspartate Amino Transferase 40 15-37 U/L Alanine Aminotransferase 40 14-59 U/L Alkaline Phosphatase 74 46-116 U/L Total Protein 6.7 6.4-8.2 g/dL Albumin Level 3.6 3.4-5.0 g/dL Globulin 3.1 Albumin Globulin Ratio 1.2 Performing Lab: see note ML - [facility] LB CBC AUTO DIFF Reviewed date:01/06/2024 01:36:15 PM Interpretation: Performing Lab: Notes/Report: [facility] , White Blood Count 5.6 4.0-11.0 10 3/uL Red Blood Count 3.81 4.20-5.40 10 6/uL Hemoglobin 11.3 12.0-16.0 g/dL Hematocrit 34.5 36.0-48.0 % Mean Corpuscular Volume 90.6 81.0-99.0 fL Mean Corpuscular Hemoglobin 29.7 26.7-34.0 pg Mean Corpuscular HGB Conc 32.8 29.9-35.2 g/dL Red Cell Distribution Width 17.4 11.0-15.0 % Platelet Count 217 150-450 10 3/uL Mean Platelet Volume 11.2 9.5-13.5 fL Neutrophils Percent Auto 77.9 43.0-75.0 % Lymphocytes Percent Auto 18.0 20.5-60.0 % Monocytes Percent Auto 3.2 1.7-12.0 % Eosinophils Percent Auto 0.2 0.9-7.0 % Basophils Percent Auto 0.5 0.2-2.0 % Immature Granulocytes Pct Auto 0.2 0.0-0.5 % Neutrophils Absolute Auto 4.3 1.4-6.5 10 3/uL Lymphocytes Absolute Auto 1.0 1.2-3.8 10 3/uL Monocytes Absolute Auto 0.2 0.3-0.8 10 3/uL Eosinophils Absolute Auto 0.0 0.0-0.7 10 3/uL Basophils Absolute Auto 0.0 0.0-0.1 10 3/uL Immature Granulocytes Abs Auto 0.01 0.00-0.03 10 3/uL Performing Lab: see note ML - [facility] LB MAGNESIUM Reviewed date:01/06/2024 01:36:15 PM Interpretation: Performing Lab: Notes/Report: [facility] , Magnesium 1.7 1.8-2.4 mg/dL Performing Lab: see note - [facility] LB PHOSPHORUS Reviewed date:01/06/2024 01:36:15 PM Interpretation: Performing Lab: Notes/Report: [facility] , Phosphorus 3.3 2.6-4.7 mg/dL Performing Lab: see note - [facility] LB PROF 14(COMP METB) Reviewed date:01/06/2024 01:36:15 PM Interpretation: Performing Lab: Notes/Report: [facility] , Sodium 140 136-145 mmol/L Potassium 3.6 3.5-5.1 mmol/L Chloride 107 98-107 mmol/L Carbon Dioxide 21.1 21.0-32.0 mmol/L Anion Gap 15.5 Glucose 113 74-106 mg/dL Blood Urea Nitrogen 7.0 7.0-18.0 mg/dL Creatinine 0.86 0.55-1.02 mg/dL Estimated GFR ( Shelby >60 >=60 mL/min/1.73m 2 Estimated GFR (Non- Caroline >60 >=60 mL/min/1.73m 2 BUN Creatinine Ratio 8.1 Calcium 8.5 8.5-10.1 mg/dL Bilirubin Total 0.3 0.2-1.0 mg/dL Aspartate Amino Transferase 28 15-37 U/L Alanine Aminotransferase 27 14-59 U/L Alkaline Phosphatase 68 46-116 U/L Total Protein 6.3 6.4-8.2 g/dL Albumin Level 3.4 3.4-5.0 g/dL Globulin 2.9 Albumin Globulin Ratio 1.2 Performing Lab: see note ML - [facility] LB Testosterone Reviewed date:01/11/2024 02:35:19 PM Interpretation: Performing Lab: Notes/Report: [facility] , Testosterone <3 8-60 ng/dL Performed at: - [facility] [address] [id number] [employer] Professor: Daron Almanza PhD, Phone: [phone] Performing Lab: see note LC - [facility] LB XR acute abdomen series Reviewed date:01/12/2024 05:28:40 PM Interpretation: Performing Lab: Notes/Report: Source Facility: [place] [address] XRay Report Signed Patient: JUAN GARCIA MR#: [id number] : 1990 Acct:[id number] Age/Sex: 33 / F ADM Date: 01/10/24 Loc: LAB Attending Dr: Britt Alas M.D. Ordering Physician: Britt Alas M.D. Date of Service: 01/10/24 Procedure(s): XR acute abdomen series Accession Number(s): [id number] cc: Britt Alas M.D. [place] [address] Patient Name: JUAN GARCIA MRN: [id number] date: 1990 Sex: F Assigned Patient Location: LAB Current Patient Location: Accession/Order Number: [id number] Exam Date: 01/10/2024 10:06 Report Date: 01/12/2024 14:45 At the request of: BRITT ALAS Procedure: XR acute abdomen series EXAMINATION: XR acute abdomen series HISTORY: Gastroesophageal Reflux Disease COMPARISON: XR chest 06/24/2023, 08/15/2023 FINDINGS: LUNGS: No infiltrate, pneumothorax, or pleural effusion. MEDIASTINUM: No abnormal widening. BOWEL GAS PATTERN: A few air-filled loops of small bowel without suspicious dilation. No suspicious fluid levels. Surgical clips within right upper quadrant. FREE AIR: None. CALCIFICATIONS: None significant. BONES: No fracture or visible bone lesion. OTHER: Right jugular central venous catheter. XR/XR acute abdomen series IMPRESSION: 1. No acute cardiopulmonary process. 2. No bowel obstruction or convincing ileus. Electronically authenticated by: BRAD BACA Date: 01/12/2024 14:45 Dictated By: Brad Baca M.D. Signed By: 11/1447 DD/ 44 TD/TT: Experience Designer: The [address] [address] XRay Report Signed Patient: JUAN GARCIA MR#: [id number] : 1990 Acct:[id number] Age/Sex: 33 / F ADM Date: 01/10/24 Loc: LAB Attending Dr: Ezra Alas M.D. Ordering Physician: Britt Alas M.D. Date of Service: 01/10/24 Procedure(s): XR acu te abdomen series Accession Number(s): [id number] cc: Britt Alas M.D. [place] [id number] Patient Name: JUAN GARCIA MRN: [id number] date: 1990 Sex: F Assigned Patient Location: LAB Current Patient Location: Accession/Order Numb er: [id number] Exam Date: 10:06 Report Date: 01/12/2024 14:45 At the request of: BRITT ALAS Procedure: XR acute abdomen series EXAMINATION: XR acut e abdomen series HISTORY: Gastroesoph ageal Reflux Disease COMPARISON: XR chest 06/24/2023, 08/15/2023 FINDINGS: LUNGS: No infiltrate , pneumothorax, or pleural effusion. MEDIASTINUM: No abno rmal widening. BOWEL GAS PATTERN: A few air-filled loops of small bowel without suspicious dilation. No suspici ous fluid levels. Surgical clips within right upper quadrant. FREE AIR: None. CALCIFICATIONS: None significant. BONES: No fracture o r visible bone lesion. OTHER: Right jugular central venous catheter. X R/XR acute abdomen series IMPRESSION: 1. No acute cardiopulmonary process. 2. No bowel obstruct ion or convincing ileus. Electronically authenticated by: BRAD BACA Date: 01/12/2024 14:45 Dictated By: Brad Baca M.D. Signed By: 01/12/24 1448 DD/ 44 TD/TT: Experience Designer: XR abdomen 1V Reviewed date:01/17/2024 01:32:20 PM Interpretation: Performing Lab: Notes/Report: Source Facility: [place] [address] [place] [address] XRay Report Signed Patient: JUAN GARCIA MR#: [id number] : 1990 Acct:[id number] Age/Sex: 33 / F ADM Date: 01/17/24 Loc: ER Attending Dr: Ordering Physician: Leslie Terrazas M.D. Date of Service: 01/17/24 Procedure(s): XR abdomen 1V Accession Number(s): [id number] cc: Britt Alas M.D.; Leslie Terrazas M.D. [place] [address] Patient Name: JUAN GARCIA MRN: [id number] date: 1990 Sex: F Assigned Patient Location: ER Current Patient Location: ER Accession/Order Number: [id number] Exam Date: 01/17/2024 12:55 Report Date: 01/17/2024 13:26 At the request of: LESLIE TERRAZAS Procedure: XR abdomen 1V EXAMINATION: XR abdomen 1V HISTORY: evaluate j tube COMPARISON: No relevant comparison available. FINDINGS: BOWEL GAS PATTERN: Gastroview was injected by the technologist through the J-tube. Contrast is present within the bowel lumen; no appreciable extravasation. CALCIFICATIONS: None significant. OTHER: Negative. No abnormal gaseous collections. XR/XR abdomen 1V IMPRESSION: 1. Patent jejunostomy tube without evidence of extravasation. Electronically authenticated by: BRAD BACA Date: 01/17/2024 13:26 Dictated By: Brad Baca M.D. Signed By: 01/17/24 1329 DD/ 1326 TD/TT: Experience Designer: [place] [address] XRay Report Signed Patient: JUAN GARCIA MR#: [id number] : 1990 Acct:[id number] Age/Sex: 33 / F ADM Date: 01/17/24 Loc: ER Attending Dr: Ordering Physician: Leslie Terrazas M.D. Date of Service: 01/17/24 Procedure(s): XR abd omen 1V Accession Number(s): [id number] cc: Britt Alas M.D. ; Leslie Terrazas M.D. The [place] [address] Patient Name: JUAN GARCIA MRN: [facility]:[id number] date: 1990 Sex: F Assigned Patient Location: ER Current Patient Loca tion: ER Accession/Order Numb er: [id number] Exam Date: 12:55 Report Date: 01/17/2024 13:26 At the request of: LESLIE TERRAZAS Procedure: XR abdomen 1V EXAMINATION: XR abdo men 1V HISTORY: evaluate j tube COMPARISON: No relev ant comparison available. FINDINGS: BOWEL GAS PATTERN: Gastroview was injected by the technologist through the J-tube. Contrast is present within the bowel lumen; no appreciable extravasation. CALCIFICATIONS: None significant. OTHER: Negative. No abnormal gaseous collections. X R/XR abdomen 1V IMPRESSION: 1. Patent jejunostom y tube without evidence of extravasation. Electronically authenticated by: BRAD BACA Date: 01/17/2024 13:26 Dictated By: Brad Baca M.D. Signed By: 01/17/24 1329 DD/ 25 TD/TT: Experience Designer: CBC AUTO DIFF Reviewed date:01/20/2024 03:46:41 PM Interpretation: Performing Lab: Notes/Report: [facility] , White Blood Count 5.7 4.0-11.0 10 3/uL Red Blood Count 4.02 4.20-5.40 10 6/uL Hemoglobin 12.4 12.0-16.0 g/dL Hematocrit 36.7 36.0-48.0 % Mean Corpuscular Volume 91.3 81.0-99.0 fL Mean Corpuscular Hemoglobin 30.8 26.7-34.0 pg Mean Corpuscular HGB Conc 33.8 29.9-35.2 g/dL Red Cell Distribution Width 16.7 11.0-15.0 % Platelet Count 234 150-450 10 3/uL Mean Platelet Volume 11.2 9.5-13.5 fL Neutrophils Percent Auto 81.6 43.0-75.0 % Lymphocytes Percent Auto 14.6 20.5-60.0 % Monocytes Percent Auto 2.8 1.7-12.0 % Eosinophils Percent Auto 0.4 0.9-7.0 % Basophils Percent Auto 0.4 0.2-2.0 % Immature Granulocytes Pct Auto 0.2 0.0-0.5 % Neutrophils Absolute Auto 4.7 1.4-6.5 10 3/uL Lymphocytes Absolute Auto 0.8 1.2-3.8 10 3/uL Monocytes Absolute Auto 0.2 0.3-0.8 10 3/uL Eosinophils Absolute Auto 0.0 0.0-0.7 10 3/uL Basophils Absolute Auto 0.0 0.0-0.1 10 3/uL Immature Granulocytes Abs Auto 0.01 0.00-0.03 10 3/uL Performing Lab: see note ML - [facility] LB MAGNESIUM Reviewed date:01/20/2024 03:46:41 PM Interpretation: Performing Lab: Notes/Report: [facility] , Magnesium 1.7 1.8-2.4 mg/dL Performing Lab: see note ML - [facility] LB PHOSPHORUS Reviewed date:01/20/2024 03:46:41 PM Interpretation: Performing Lab: Notes/Report: [facility] , Phosphorus 3.5 2.6-4.7 mg/dL Performing Lab: see note ML - [facility] LB PROF 14(COMP METB) Reviewed date:01/20/2024 03:46:41 PM Interpretation: Performing Lab: Notes/Report: [facility] , Sodium 143 136-145 mmol/L Potassium 4.0 3.5-5.1 mmol/L Chloride 106 98-107 mmol/L Carbon Dioxide 25.9 21.0-32.0 mmol/L Anion Gap 15.1 Glucose 68 74-106 mg/dL Blood Urea Nitrogen 7.0 7.0-18.0 mg/dL Creatinine 0.85 0.55-1.02 mg/dL Estimated GFR ( Shelby >60 >=60 mL/min/1.73m 2 Estimated GFR (Non- Caroline >60 >=60 mL/min/1.73m 2 BUN Creatinine Ratio 8.2 Calcium 8.4 8.5-10.1 mg/dL Bilirubin Total 0.3 0.2-1.0 mg/dL Aspartate Amino Transferase 33 15-37 U/L Alanine Aminotransferase 38 14-59 U/L Alkaline Phosphatase 74 46-116 U/L Total Protein 6.3 6.4-8.2 g/dL Albumin Level 3.6 3.4-5.0 g/dL Globulin 2.7 Albumin Globulin Ratio 1.3 Performing Lab: see note ML - [facility] LB CBC AUTO DIFF Reviewed date:01/31/2024 02:12:13 PM Interpretation: Performing Lab: Notes/Report: [facility] , White Blood Count 5.3 4.0-11.0 10 3/uL Red Blood Count 3.80 4.20-5.40 10 6/uL Hemoglobin 11.7 12.0-16.0 g/dL Hematocrit 36.4 36.0-48.0 % Mean Corpuscular Volume 95.8 81.0-99.0 fL Mean Corpuscular Hemoglobin 30.8 26.7-34.0 pg Mean Corpuscular HGB Conc 32.1 29.9-35.2 g/dL Red Cell Distribution Width 15.9 11.0-15.0 % Platelet Count 224 150-450 10 3/uL Mean Platelet Volume 11.7 9.5-13.5 fL Neutrophils Percent Auto 78.1 43.0-75.0 % Lymphocytes Percent Auto 18.4 20.5-60.0 % Monocytes Percent Auto 2.3 1.7-12.0 % Eosinophils Percent Auto 0.4 0.9-7.0 % Basophils Percent Auto 0.6 0.2-2.0 % Immature Granulocytes Pct Auto 0.2 0.0-0.5 % Neutrophils Absolute Auto 4.1 1.4-6.5 10 3/uL Lymphocytes Absolute Auto 1.0 1.2-3.8 10 3/uL Monocytes Absolute Auto 0.1 0.3-0.8 10 3/uL Eosinophils Absolute Auto 0.0 0.0-0.7 10 3/uL Basophils Absolute Auto 0.0 0.0-0.1 10 3/uL Immature Granulocytes Abs Auto 0.01 0.00-0.03 10 3/uL Performing Lab: see note ML - [facility] LB FERRITIN Reviewed date:01/31/2024 02:12:13 PM Interpretation: Performing Lab: Notes/Report: [facility] , Ferritin 98.0 8.0-252.0 ng/mL Performing Lab: see note ML - [facility] LB IRON AND TIBC Reviewed date:01/31/2024 02:12:13 PM Interpretation: Performing Lab: Notes/Report: [place] [facility] , Iron 101.0 50.0-170.0 ug/dL Total Iron Binding Capacity 257.0 250.0-450.0 ug/dL Percent Iron Saturation 39.3 Performing Lab: see note ML - [facility] LB MAGNESIUM Reviewed date:01/31/2024 02:12:13 PM Interpretation: Performing Lab: Notes/Report: [facility] , Magnesium 1.6 1.8-2.4 mg/dL Performing Lab: see note ML - [facility] LB PHOSPHORUS Reviewed date:01/31/2024 02:12:13 PM Interpretation: Performing Lab: Notes/Report: [facility] , Phosphorus 3.7 2.6-4.7 mg/dL Performing Lab: see note ML - [facility] LB PROF 14(COMP METB) Reviewed date:01/31/2024 02:12:13 PM Interpretation: Performing Lab: Notes/Report: [facility] , Sodium 141 136-145 mmol/L Potassium 4.0 3.5-5.1 mmol/L Chloride 107 98-107 mmol/L Carbon Dioxide 22.8 21.0-32.0 mmol/L Anion Gap 15.2 Glucose 145 74-106 mg/dL Blood Urea Nitrogen 9.0 7.0-18.0 mg/dL Creatinine 1.01 0.55-1.02 mg/dL Estimated GFR ( Shelby >60 >=60 mL/min/1.73m 2 Estimated GFR (Non- Caroline >60 >=60 mL/min/1.73m 2 BUN Creatinine Ratio 8.9 Calcium 8.2 8.5-10.1 mg/dL Bilirubin Total 0.3 0.2-1.0 mg/dL Aspartate Amino Transferase 52 15-37 U/L Alanine Aminotransferase 56 14-59 U/L Alkaline Phosphatase 63 46-116 U/L Total Protein 6.2 6.4-8.2 g/dL Albumin Level 3.3 3.4-5.0 g/dL Globulin 2.9 Albumin Globulin Ratio 1.1 Performing Lab: see note ML - [facility] LB Transferrin Reviewed date:02/01/2024 12:16:29 PM Interpretation: Performing Lab: Notes/Report: [facility] , Transferrin 210 192-364 mg/dL Performed at: [facility] [address] [id number] [employer] Professor: Daron Almanza PhD, Phone: [phone] Performing Lab: see note LC - [facility] LB CBC AUTO DIFF Reviewed date:02/16/2024 03:19:17 PM Interpretation: Performing Lab: Notes/Report: [facility] , White Blood Count 7.7 4.0-11.0 10 3/uL Red Blood Count 3.91 4.20-5.40 10 6/uL Hemoglobin 12.5 12.0-16.0 g/dL Hematocrit 37.3 36.0-48.0 % Mean Corpuscular Volume 95.4 81.0-99.0 fL Mean Corpuscular Hemoglobin 32.0 26.7-34.0 pg Mean Corpuscular HGB Conc 33.5 29.9-35.2 g/dL Red Cell Distribution Width 14.3 11.0-15.0 % Platelet Count 219 150-450 10 3/uL Mean Platelet Volume 11.3 9.5-13.5 fL Neutrophils Percent Auto 83.0 43.0-75.0 % Lymphocytes Percent Auto 13.6 20.5-60.0 % Monocytes Percent Auto 2.7 1.7-12.0 % Eosinophils Percent Auto 0.3 0.9-7.0 % Basophils Percent Auto 0.3 0.2-2.0 % Immature Granulocytes Pct Auto 0.1 0.0-0.5 % Neutrophils Absolute Auto 6.4 1.4-6.5 10 3/uL Lymphocytes Absolute Auto 1.0 1.2-3.8 10 3/uL Monocytes Absolute Auto 0.2 0.3-0.8 10 3/uL Eosinophils Absolute Auto 0.0 0.0-0.7 10 3/uL Basophils Absolute Auto 0.0 0.0-0.1 10 3/uL Immature Granulocytes Abs Auto 0.01 0.00-0.03 10 3/uL Performing Lab: see note - [facility] LB MAGNESIUM Reviewed date:02/16/2024 03:19:17 PM Interpretation: Performing Lab: Notes/Report: [facility] , Magnesium 1.8 1.8-2.4 mg/dL Performing Lab: see note - [facility] PHOSPHORUS Reviewed date:02/16/2024 03:19:17 PM Interpretation: Performing Lab: Notes/Report: [facility] , Phosphorus 3.3 2.6-4.7 mg/dL Performing Lab: see note [facility] PROF 14(COMP METB) Reviewed date:02/16/2024 03:19:17 PM Interpretation: Performing Lab: Notes/Report: [facility] , Sodium 142 136-145 mmol/L Potassium 3.8 3.5-5.1 mmol/L Chloride 106 98-107 mmol/L Carbon Dioxide 28.5 21.0-32.0 mmol/L Anion Gap 11.3 Glucose 92 74-106 mg/dL Blood Urea Nitrogen 7.0 7.0-18.0 mg/dL Creatinine 0.90 0.55-1.02 mg/dL Estimated GFR ( Shelby >60 >=60 mL/min/1.73m 2 Estimated GFR (Non- Caroline >60 >=60 mL/min/1.73m 2 BUN Creatinine Ratio 7.8 Calcium 8.4 8.5-10.1 mg/dL Bilirubin Total 0.3 0.2-1.0 mg/dL Aspartate Amino Transferase 37 15-37 U/L Alanine Aminotransferase 44 14-59 U/L Alkaline Phosphatase 70 46-116 U/L Total Protein 6.6 6.4-8.2 g/dL Albumin Level 3.6 3.4-5.0 g/dL Globulin 3.0 Albumin Globulin Ratio 1.2 Performing Lab: see note [facility] LB CBC AUTO DIFF Reviewed date:03/29/2024 09:46:23 PM Interpretation: Performing Lab: Notes/Report: [facility] , White Blood Count 8.6 4.0-11.0 10 3/uL Red Blood Count 3.73 4.20-5.40 10 6/uL Hemoglobin 12.7 12.0-16.0 g/dL Hematocrit 36.5 36.0-48.0 % Mean Corpuscular Volume 97.9 81.0-99.0 fL Mean Corpuscular Hemoglobin 34.0 26.7-34.0 pg Mean Corpuscular HGB Conc 34.8 29.9-35.2 g/dL Red Cell Distribution Width 12.0 11.0-15.0 % Platelet Count 226 150-450 10 3/uL Mean Platelet Volume 10.8 9.5-13.5 fL Neutrophils Percent Auto 87.8 43.0-75.0 % Lymphocytes Percent Auto 10.2 20.5-60.0 % Monocytes Percent Auto 1.6 1.7-12.0 % Eosinophils Percent Auto 0.0 0.9-7.0 % Basophils Percent Auto 0.2 0.2-2.0 % Immature Granulocytes Pct Auto 0.2 0.0-0.5 % Neutrophils Absolute Auto 7.5 1.4-6.5 10 3/uL Lymphocytes Absolute Auto 0.9 1.2-3.8 10 3/uL Monocytes Absolute Auto 0.1 0.3-0.8 10 3/uL Eosinophils Absolute Auto 0.0 0.0-0.7 10 3/uL Basophils Absolute Auto 0.0 0.0-0.1 10 3/uL Immature Granulocytes Abs Auto 0.02 0.00-0.03 10 3/uL Performing Lab: see note ML - [facility] LB MAGNESIUM Reviewed date:03/29/2024 09:46:23 PM Interpretation: Performing Lab: Notes/Report: [facility] , Magnesium 1.8 1.8-2.4 mg/dL Performing Lab: see note - [facility] LB PROF 14(COMP METB) Reviewed date:03/29/2024 09:46:23 PM Interpretation: Performing Lab: Notes/Report: [facility] , Sodium 143 136-145 mmol/L Potassium 3.8 3.5-5.1 mmol/L Chloride 107 98-107 mmol/L Carbon Dioxide 26.7 21.0-32.0 mmol/L Anion Gap 13.1 Glucose 66 74-106 mg/dL Blood Urea Nitrogen 13.0 7.0-18.0 mg/dL Creatinine 0.94 0.55-1.02 mg/dL Estimated GFR ( [place] >60 >=60 mL/min/1.73m 2 Estimated GFR (Non- Caroline >60 >=60 mL/min/1.73m 2 BUN Creatinine Ratio 13.8 Calcium 8.4 8.5-10.1 mg/dL Bilirubin Total 0.3 0.2-1.0 mg/dL Aspartate Amino Transferase 28 15-37 U/L Alanine Aminotransferase 31 14-59 U/L Alkaline Phosphatase 48 46-116 U/L Total Protein 6.4 6.4-8.2 g/dL Albumin Level 3.5 3.4-5.0 g/dL Globulin 2.9 Albumin Globulin Ratio 1.2 Performing Lab: see note ML - [facility] LB TSH Reviewed date:03/29/2024 09:46:23 PM Interpretation: Performing Lab: Notes/Report: [facility] , Thyroid Stimulating Hormone 0.622 0.358-3.740 uIU/mL Performing Lab: see note ML - [facility] LB CBC AUTO DIFF Reviewed date:03/30/2024 07:56:16 PM Interpretation: Performing Lab: Notes/Report: [facility] , White Blood Count 4.6 4.0-11.0 10 3/uL Red Blood Count 3.64 4.20-5.40 10 6/uL Hemoglobin 12.1 12.0-16.0 g/dL Hematocrit 36.1 36.0-48.0 % Mean Corpuscular Volume 99.2 81.0-99.0 fL Mean Corpuscular Hemoglobin 33.2 26.7-34.0 pg Mean Corpuscular HGB Conc 33.5 29.9-35.2 g/dL Red Cell Distribution Width 12.0 11.0-15.0 % Platelet Count 232 150-450 10 3/uL Mean Platelet Volume 11.0 9.5-13.5 fL Neutrophils Percent Auto 84.8 43.0-75.0 % Lymphocytes Percent Auto 13.3 20.5-60.0 % Monocytes Percent Auto 1.3 1.7-12.0 % Eosinophils Percent Auto 0.0 0.9-7.0 % Basophils Percent Auto 0.2 0.2-2.0 % Immature Granulocytes Pct Auto 0.4 0.0-0.5 % Neutrophils Absolute Auto 3.9 1.4-6.5 10 3/uL Lymphocytes Absolute Auto 0.6 1.2-3.8 10 3/uL Monocytes Absolute Auto 0.1 0.3-0.8 10 3/uL Eosinophils Absolute Auto 0.0 0.0-0.7 10 3/uL Basophils Absolute Auto 0.0 0.0-0.1 10 3/uL Immature Granulocytes Abs Auto 0.02 0.00-0.03 10 3/uL Performing Lab: see note ML - [facility] LB MAGNESIUM Reviewed date:03/30/2024 07:56:16 PM Interpretation: Performing Lab: Notes/Report: [facility] , Magnesium 1.7 1.8-2.4 mg/dL Performing Lab: see note ML - [facility] PROF CHEM 8 (BAS METB) Reviewed date:03/30/2024 07:56:16 PM Interpretation: Performing Lab: Notes/Report: [facility] , Sodium 140 136-145 mmol/L Potassium 4.0 3.5-5.1 mmol/L Chloride 106 98-107 mmol/L Carbon Dioxide 21.6 21.0-32.0 mmol/L Anion Gap 16.4 Glucose 210 74-106 mg/dL Blood Urea Nitrogen 8.0 7.0-18.0 mg/dL Creatinine 0.98 0.55-1.02 mg/dL Estimated GFR ( Shelby >60 >=60 mL/min/1.73m 2 Estimated GFR (Non- Caroline >60 >=60 mL/min/1.73m 2 BUN Creatinine Ratio 8.2 Calcium 8.3 8.5-10.1 mg/dL Performing Lab: see note ML - [facility] LB AMYLASE Reviewed date:06/21/2024 12:59:38 PM Interpretation: Performing Lab: Notes/Report: [facility] , Amylase 51 25-115 U/L Performing Lab: see note - [facility] LB CBC AUTO DIFF Reviewed date:06/21/2024 12:59:38 PM Interpretation: Performing Lab: Notes/Report: [facility] , White Blood Count 5.6 4.0-11.0 10 3/uL Red Blood Count 3.72 4.20-5.40 10 6/uL Hemoglobin 12.3 12.0-16.0 g/dL Hematocrit 35.4 36.0-48.0 % Mean Corpuscular Volume 95.2 81.0-99.0 fL Mean Corpuscular Hemoglobin 33.1 26.7-34.0 pg Mean Corpuscular HGB Conc 34.7 29.9-35.2 g/dL Red Cell Distribution Width 12.2 11.0-15.0 % Platelet Count 254 150-450 10 3/uL Mean Platelet Volume 9.4 9.5-13.5 fL Neutrophils Percent Auto 83.0 43.0-75.0 % Lymphocytes Percent Auto 13.7 20.5-60.0 % Monocytes Percent Auto 2.7 1.7-12.0 % Eosinophils Percent Auto 0.0 0.9-7.0 % Basophils Percent Auto 0.2 0.2-2.0 % Immature Granulocytes Pct Auto 0.4 0.0-0.5 % Neutrophils Absolute Auto 4.7 1.4-6.5 10 3/uL Lymphocytes Absolute Auto 0.8 1.2-3.8 10 3/uL Monocytes Absolute Auto 0.2 0.3-0.8 10 3/uL Eosinophils Absolute Auto 0.0 0.0-0.7 10 3/uL Basophils Absolute Auto 0.0 0.0-0.1 10 3/uL Immature Granulocytes Abs Auto 0.02 0.00-0.03 10 3/uL Performing Lab: see note ML - [facility] LB LIPASE Reviewed date:06/21/2024 12:59:38 PM Interpretation: Performing Lab: Notes/Report: [facility] , Lipase 78.0 16.0-77.0 U/L Performing Lab: see note ML - [facility] LB LIVER PROFILE Reviewed date:06/21/2024 12:59:38 PM Interpretation: Performing Lab: Notes/Report: [facility] , Bilirubin Total 0.6 0.2-1.0 mg/dL Bilirubin Direct 0.2 0.0-0.2 mg/dL Aspartate Amino Transferase 22 15-37 U/L Alanine Aminotransferase 27 14-59 U/L Alkaline Phosphatase 62 46-116 U/L Total Protein 6.7 6.4-8.2 g/dL Albumin Level 3.4 3.4-5.0 g/dL Globulin 3.3 Albumin Globulin Ratio 1.0 Performing Lab: see note - [facility] PROF CHEM 8 (BAS METB) Reviewed date:06/21/2024 12:59:38 PM Interpretation: Performing Lab: Notes/Report: [facility] , Sodium 137 136-145 mmol/L Potassium 3.5 3.5-5.1 mmol/L Chloride 102 98-107 mmol/L Carbon Dioxide 23.7 21.0-32.0 mmol/L Anion Gap 14.8 Glucose 115 74-106 mg/dL Blood Urea Nitrogen 10.0 7.0-18.0 mg/dL Creatinine 0.74 0.55-1.02 mg/dL Estimated GFR ( Shelby >60 >=60 mL/min/1.73m 2 Estimated GFR (Non- Caroline >60 >=60 mL/min/1.73m 2 BUN Creatinine Ratio 13.5 Calcium 8.7 8.5-10.1 mg/dL Performing Lab: see note - [facility] HCG Qualitative* Reviewed date:06/21/2024 12:59:38 PM Interpretation: Performing Lab: Notes/Report: [facility] , HCG Qualitative NEGATIVE NEGATIVE Performing Lab: see note - [facility] ECG 12 lead Reviewed date:06/21/2024 08:02:33 PM Interpretation: Performing Lab: Notes/Report: Source Facility: [facility]-[address] [place] [address] [place] [address] Electrocardiograph Report Signed Patient: JUAN GARCIA MR#: [id number] : 1990 Acct:[id number] Age/Sex: 34 / F ADM Date: 06/21/24 Loc: ER Attending Dr: Ordering Physician: Leslie Terrazas M.D. 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 Measurements Intervals Dorena Rate: 80 P: 54 CO: 140 QRS: 47 QRSD: 80 T: 46 QT: 384 QTc: 420 Interpretive Statements 1100 Sinus rhythm 9110 normal ECG Compared to ECG 09/23/2023 18:36:37 No significant changes Electronically Signed On 06-21-2024 18:14:03 EDT by JAMES HODGES M.D. Dictated By: JAMES HODGES Signed By: 06/21/241813 DD/ 1124 TD/TT: Experience Designer: [place] [address] Electrocardiograph Report Signed Patient: JUAN GARCIA MR#: [id number] : 1990 Acct:[id number] Age/Sex: 34 / F ADM Date: 06/21/24 Loc: ER Attending Dr: Ordering Physician: Leslie Terrazas M.D. 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 Measurements Intervals Dorena Rate: 80 P: 54 CO: 140 QRS: 47 QRSD: 80 T: 46 QT: 384 QTc: 420 Interpretive Statements 1100 Sinus rhythm 9110 normal ECG Compared to ECG 09/23/2023 18:36:37 No significant changes Electronically Gemini d On 06-21-2024 18:14:03 EDT by JAMES HODGES M.D. Dictated By: JAMES HODGES Signed By: 06/21/241813 DD/ 1124 TD/TT: Experience Designer: Reason For Referral Diagnosis 1 Hypoglycemia (E16.2) Referral Organization [facility] Referring Provider First Name Brandyn Referring Provider Last Name Evette Referring Provider Speciality Family Med daniel Referred Provider Que Draper Referred Provider Specialty Endocrinolog y Referral Priority Routine Medications Medication SIG (Take, Route, Frequency, Duration) Notes Start Date End Date Status Test Strips - Test sugar Once daily for 90 days Dx: E11.9 03/22/2024 Active Compazine 10 MG 1 tablet as needed Orally Three times a day 12/22/2023 Active Gmeqemnihh-XKND-Jpszbzs e 50-325-40 MG TAKE 1 TABLET BY MOUTH EVERY 4 HOURS NEEDED FOR HEADACHE for 4 PRN 04/21/2024 Active Cefdinir 300 MG 2 capsule Orally once a day for 10 days 07/06/2024 Active Methocarbamol 500 MG TAKE 1.5 TABLETS BY MOUTH EVERY 6 HRS FOR 30 DAYS for 30 Active Mupirocin 2 % 1 application Externally Twice a day for 5 days 07/21/2024 Active Magnesium 400 MG as directed Orally twice a day 09/13/2023 Active Ondansetron 4 MG 1-2 tablet on the tongue and allow to dissolve Orally q4h for 30 days As needed 09/29/2023 Active [employer] 2 w/Device USE TO MONITOR BLOOD GLUCOSE LEVELS DAILY for 30 Active Ozempic (0.25 or 0.5 MG/DOSE) 2 MG/3ML Inject 0.25mg Subcutaneous once weekly for 56 days 02/07/2024 Active Hydrocortisone PRN- Injection Active Prucalopride Succinate 2 MG Oral for 30 Days Active busPIRone HCl 10 MG 1 tablet Orally TID for 30 days 06/23/2023 Active Remeron 30 MG 2 tablet at bedtime Orally Once a day 06/23/2023 Active HYDROcodone-Acetaminoph en 5-325 MG 1 - 2 tablet as needed - max 6/day Orally every 6 hrs for 14 days K56.600 K56.600 07/21/2024 Active Lexapro 20 MG 1 tablet Orally Once a day 06/23/2023 Active fentaNYL 25 MCG/HR 1 patch to skin Transdermal Q3d for 30 days 07/21/2024 Active Liothyronine Sodium 5 MCG 1 tablet on an empty stomach Orally Once a day for 30 days 06/23/2023 Active Doxycycline Monohydrate 100 MG 1 capsule Orally Twice a day for 10 07/21/2024 Active Topamax 100 MG 1 tablet Orally BID for 30 days 06/23/2023 Active Ferrous Sulfate 325 (65 Fe) MG 1 tablet Orally twice a day for 30 days 07/19/2023 Active traZODone HCl 100 MG 1 tablet Orally bedtime 11/18/2023 Active FreeStyle Hunter 3 [place] Use to monitor glucose levels multiple times daily DX Diabetes with hypoglycemic episodes for 365 days 10/14/2023 Active dexAMETHasone 2 MG 2.5 tablet Orally daily for 30 days 04/19/2024 Active traMADol HCl 50 MG 1 tablet as needed Orally qid for 30 days As needed PRN 07/03/2024 Active FreeStyle Hunter 3 Sensor Use to monitor glucose multiple times daily DX Diabetes with hypoglycemia episodes- change once every 10 days for 30 days 10/14/2023 Active hydrOXYzine HCl 25 MG Oral for 30 Days Active Lancets 30G - Use 1 lancet E11.9 once daily for 90 03/22/2024 Active Doxycycline Monohydrate 100 MG 1 capsule Orally bid for 10 days 07/06/2024 Active Levothyroxine Sodium 75 MCG 1 tablet in the morning on an empty stomach Orally Once a day for 30 days 06/23/2023 Active Social History Tobacco Use: Social History Observation Description Date Details (start date - stop date) Never Smoker NA - NA Tobacco Control (Standard) Question Answer Notes Tobacco use: Nonsmoker AUDIT-C (Standard) Question Answer Notes Did you have a drink containing alcohol in the p ast year? 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) Active confirmed Problem Asthma (448530715) Asthma (J45.909) Active conf irmed Problem Gastroesophageal reflux disease (608278427) GERD (gastroesophageal reflux disease) (K21.9) Active confirmed Problem Hypothyroidism (56448448) Hypothyroidism (E03.9) Active confirmed Problem Anxiety (90867637) Anxiety (F41.9) Active confi rmed Problem Migraine (63776847) Migraine (G43.909) Active confirmed Problem Irritable bowel syndrome (74039097) IBS (irritable bowel syndrome) (K58.9) Active confirmed Problem Generalized anxiety disorder (19795077) EDAWR (generalized anxiety disorder) (F41.1) Active confirmed Problem Lumbar radiculopathy (671513280) Lumbar radiculopathy (M54.16) Active confirmed Problem Allergic conjunctivitis (432618799) Allergic conjunctivitis (H10.10) Active confirmed Problem Acquired hypothyroidism (614356055) Acquired hypothyroidism (E03.9) Active confirmed Problem Hypoglycemia (956688613) Hypoglycemia (E16.2) Active confirmed Problem Anxiety disorder (790613845) Anxiety disorder (F41.9) Active confirmed Problem Neutropenia (126403106) Neutropenia (D70.9) Active confirmed Problem Edema (022223434) Facial edema (R60.0) Active confirmed Problem Gastrostomy present (355349502) PEG (percutaneous endoscopic gastrostomy) status (Z93.1) Active confirmed Problem Severe protein calorie malnutrition (120108790) Severe protein-calorie malnutrition (E43) Active confirmed Problem Disorder of endocrine system (847758630) 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.9) Active confirmed Problem Malnutrition of moderate degree ([place]: 60% to less than 75% of standard weight) (75933127) Moderate malnutrition (E44.0) Active confirmed Problem Gastrostomy present (494251878) Feeding by G-tube (Z93.1) Active confirmed Problem Gastrostomy present (324412138) Gastrostomy in place (Z93.1) Active confirmed Problem Jejunostomy tube, device (physical object) (413399708) Jejunostomy tube present (Z93.4) Active confirmed Problem [id number] Partial intestinal obstruction, unspecified as to cause (K56.600) Active confirmed Vital Signs Heart Rate 80 /min 08/11/2023 Temperature 98.9 degrees Fahrenheit 08/23/2023 Oximetry 98 % 08/11/2023 Blood pressure diastolic 86 mm Hg 04/19/2024 Height 66 in 04/19/2024 Blood pressure systolic 132 mm Hg 04/19/2024 Weight 188.4 lbs 04/19/2024 BMI 30.41 kg/m2 04/19/2024 Encounters Encounter Location Date Provider Diagnosis [facility] [address] [place] [address] 07/21/2024 Brandyn Hoy Partial intestinal obstruction, unspecified as to cause K56.600 and GERD (gastroesophageal reflux disease) K21.9 [facility] [address] [place] [facility] [place] [address] 07/21/2024 Brandyn Hoy [facility] [address] [facility] [place] [place] [address] 06/05/2024 Brandyn Hoy [facility] [address] [facility] [place] [address] 06/12/2024 Brandyn Hoy GERD (gastroesophage al reflux disease) K21.9 [facility] [address] [facility] [place] [address] 06/23/2024 Brandyn Hoy Partial intestinal obstruction, unspecified as to cause K56.600 and GERD (gastroesophageal reflux disease) K21.9 [facility] [address] [facility] [place] [address] 07/03/2024 Brandyn Hoy [facility] [address] [place] [facility] [place] [address] 07/06/2024 Brandyn Hoy [facility] [address] [facility] [place] [place] [address] 07/07/2024 Brandyn Hoy GERD (gastroesophage al reflux disease) K21.9 [facility] [address] [facility] [place] [place] [address] 05/04/2024 Brandyn Hoy GERD (gastroesophage al reflux disease) K21.9 [facility] [address] [facility] [place] [address] 05/10/2024 Brandyn Hoy [facility] [address] [facility] [place] [address] 05/17/2024 Brandyn Hoy GERD (gastroesophage al reflux disease) K21.9 [facility] [address] [facility] [place] [address] 05/22/2024 Brandyn Hoy [facility] [address] [place] [facility] [place] [address] 05/26/2024 Brandyn Hoy Partial intestinal obstruction, unspecified as to cause K56.600 [facility] [address] [facility] [place] [address] 05/30/2024 Brandyn Hoy GERD (gastroesophage al reflux disease) K21.9 [facility] [address] [place] [place] [address] 04/18/2024 Brandyn Hoy Hypoglycemia E16.2 [facility] [address] [place] [place] [address] 04/21/2024 Brandyn Hoy GERD (gastroesophage al reflux disease) K21.9 [facility] [address] [place] [place] [address] 04/21/2024 Brandyn Hoy [facility] [address] [facility] [place] [place] [address] 04/27/2024 Brandyn Hoy Partial intestinal obstruction, unspecified as to cause K56.600 [facility] [address] [place] [place] [address] 04/28/2024 Brandyn Hoy [facility] [address] [facility] [place] [place] [address] 05/02/2024 Brandyn Hoy [facility] [address] [facility] [place] [place] [address] 04/04/2024 Brandyn Hoy Partial intestinal obstruction, unspecified as to cause K56.600 [facility] [address] [place] [place] [address] 04/06/2024 Brandyn Hoy Partial intestinal obstruction, unspecified as to cause K56.600 [facility] [address] [facility] [place] [place] [address] 04/07/2024 Brandyn Hoy GERD (gastroesophage al reflux disease) K21.9 [facility] [address] [place] [address] 04/10/2024 Brandyn Hoy [facility] [address] [place] [place] [address] 04/13/2024 Brandyn Hoy [facility] [address] [facility] [place] [address] 04/18/2024 Brandyn Hoy [facility] [address] [facility] [place] [address] 03/22/2024 Brandyn Hoy [facility] [address] [facility] [place] [address] 03/24/2024 Brandyn Hoy GERD (gastroesophage al reflux disease) K21.9 [facility] [address] [facility] [place] [address] 03/27/2024 Brandyn Hoy GERD (gastroesophage al reflux disease) K21.9 [facility] [address] [facility] [place] [address] 03/29/2024 Brandyn Hoy [facility] [address] [facility] [place] [place] [address] 2024 Brandyn Hoy Partial intestinal obstruction, unspecified as to cause K56.600 [facility] [address] [place] [address] 04/04/2024 Brandyn Hoy Partial intestinal obstruction, unspecified as to cause K56.600 [facility] [address] [place] [address] 03/03/2024 Brandyn Hoy [facility] [address] [facility] [place] [address] 03/06/2024 Brandyn Hoy Partial intestinal obstruction, unspecified as to cause K56.600 [facility] [address] [facility] [place] [place] [address] 03/06/2024 Brandyn Hoy [facility] [address] [facility] [place] [address] 03/13/2024 Brandyn Hoy [facility] [address] [facility] [place] [address] 03/13/2024 Brandyn Hoy GERD (gastroesophage al reflux disease) K21.9 [facility] [address] [place] [address] 03/21/2024 Brandyn Hoy [facility] [address] [facility] [place] [address] 02/07/2024 Brandyn Hoy GERD (gastroesophage al reflux disease) K21.9 [facility] [address] [facility] [place] [address] 02/07/2024 Brandyn Hoy [facility] [address] [facility] [place] [address] 02/11/2024 Brandyn Hoy [facility] [address] [facility] [place] [address] 02/14/2024 Brandyn Hoy [facility] [address] [facility] [place] [address] 02/21/2024 Brandyn Hoy GERD (gastroesophage al reflux disease) K21.9 [facility] [address] [place] [address] 03/03/2024 Brandyn Hoy GERD (gastroesophage al reflux disease) K21.9 [facility] [address] [facility] [place] [address] 01/26/2024 Brandyn Hoy GERD (gastroesophage al reflux disease) K21.9 [facility] [address] [place] [address] 01/31/2024 Brandyn Hoy [facility] [address] [place] [address] 01/31/2024 Brandyn Hoy [facility] [address] [place] [place] [address] 02/02/2024 Brandyn Hoy [facility] [address] [facility] [place] [address] 02/04/2024 Brandyn Hoy [facility] [address] [facility] [place] [address] 02/04/2024 Brandyn Hoy Partial intestinal obstruction, unspecified as to cause K56.600 [facility] [address] [facility] [place] [address] 01/10/2024 Brandyn Alas GERD (gastroesophage al reflux disease) K21.9 [facility] [address] [facility] [place] [address] 01/11/2024 Brandyn Rosenthalkatarina [facility] [address] [facility] [place] [address] 01/18/2024 Brandyn Rosenthaly [facility] [address] [facility] [place] [address] 01/18/2024 Brandyn Alas Anxiety F41.9 [facility] [address] [facility] [place] [address] 01/19/2024 Brandyn Alas [facility] [address] [facility] [place] [address] 01/26/2024 Brandyn Alas [facility] [address] [facility] [place] [address] 12/27/2023 Brandyn Alas [facility] [address] [facility] [place] [address] 12/30/2023 Brandyn Alas [facility] [address] [facility] [place] [address] 12/31/2023 Brandyn Alas [facility] [address] [facility] [place] [address] 01/03/2024 Brandyn Alas [facility] [address] [facility] [place] [address] 01/03/2024 Brandyn Alas Partial intestinal obstruction, unspecified as to cause K56.600 [facility] [address] [facility] [place] [address] 01/05/2024 Brandyn Alas [facility] [address] [facility] [place] [address] 11/30/2023 Brandyn Rosenthaly Intractable abdomina l pain R10.9 and Abdominal pain R10.9 [facility] [address] [facility] [place] [address] 12/06/2023 Brandyn Alas [facility] [address] [place] [facility] [place] [address] 12/06/2023 Brandyn Hoy [facility] [address] [place] [place] [address] 12/20/2023 Brandyn Hoy [facility] [address] [place] [address] 12/22/2023 Brandyn Hoy [facility] [address] [place] [facility] [place] [address] 12/23/2023 Brandyn Hoy Testosterone deficie ncy E29.1 [facility] [address] [place] [facility] [address] 11/09/2023 Brandyn Hoy [facility] [address] [place] [address] 11/22/2023 Brandyn Hoy Allergic conjunctivi tis H10.10 [facility] [address] [place] [facility] [place] [address] 11/23/2023 Brandyn Hoy Jejunostomy tube pre sent Z93.4 [facility] [address] [place] [facility] [place] [address] 11/26/2023 Brandyn Hoy Low testosterone lev el in female R79.89 [facility] [address] [place] [address] 11/29/2023 Brandyn Hoy [facility] [address] [place] [place] [address] 11/30/2023 Brandyn Hoy [facility] [address] [place] [address] 11/04/2023 Brandyn Hoy Intractable abdomina l pain R10.9 and Asthma J45.909 [facility] [address] [place] [address] 11/04/2023 Brandyn Hoy Partial intestinal obstruction, unspecified as to cause K56.600 [facility] [address] [place] [address] 11/04/2023 Brandyn Hoy [facility] [address] [place] [address] 11/05/2023 Brandyn katarina [facility] [address] [facility] [address] 11/08/2023 Brandyn katarina [facility] [address] [facility] [address] 11/09/2023 Brandyn Hoy Partial intestinal obstruction, unspecified as to cause K56.600 [facility] [address] [facility] [address] 10/19/2023 Brnadyn [facility] [address] [facility] [address] 10/19/2023 Brandyn katarina [facility] [address] [facility] [address] 10/27/2023 Brandyn Galoy [facility] [address] [facility] [address] [place] [facility] [address] 10/28/2023 Brandyn katarina [facility] [address] [facility] [place] [address] 11/02/2023 Brandyn katarina [facility] [address] [place] [address] 11/03/2023 Brandyn katraina [facility] [address] [place] [address] 09/29/2023 Brandyn [facility] [address] [place] [address] 09/29/2023 Brandyn katarina [facility] [address] [place] [address] 10/13/2023 Brandyn Hoy IBS (irritable bowel syndrome) K58.9 and Partial intestinal obstruction, unspecified as to cause K56.600 [facility] [address] [place] [address] 10/14/2023 Brandyn y [facility] [address] [place] [address] 10/19/2023 Brandyn Hoy Partial intestinal obstruction, unspecified as to cause K56.600 [facility] [address] [place] [address] 10/19/2023 Brandyn Hoy [facility] [address] [place] [address] 09/06/2023 Brandyn Hoy Allergic conjunctivi tis H10.10 [facility] [address] [place] [address] 09/06/2023 Brandyn Hoy Right upper quadrant pain R10.11 [facility] [address] [place] [address] 09/07/2023 Brandyn Hoy [facility] [address] [facility] [place] [address] 09/08/2023 Brandyn Hoy [facility] [address] [place] [address] 09/08/2023 Brandyn Hoy Gross hematuria R31. 0 [facility] [address] [address] 09/12/2023 Brandyn Hoy [facility] [address] [address] 08/20/2023 BRITT HOY [facility] [address] [address] 08/20/2023 BRITT HOY [facility] [address] [place] [address] 08/25/2023 BRITT HOY [facility] [address] [place] [address] 08/29/2023 Brandyn Hoy [facility] [address] [address] 08/30/2023 Brandyn Hoy [facility] [address] [place] [address] 09/05/2023 Brandyn Hoy Elevated liver enzym es R74.8 [facility] [address] [place] [address] 07/30/2023 BRITT HOY UTI (urinary tract infection) N39.0 [facility] [address] [place] [address] 08/03/2023 BRITT HOY Joint pain M25.50 [facility] [address] [place] [place] [address] 08/09/2023 BRITT HOY [facility] [address] [place] [address] 08/13/2023 BRITT HOY [facility] [address] [place] [address] 08/11/2023 BRITT HOY GERD (gastroesophage al reflux disease) K21.9 ; IBS (irritable bowel syndrome) K58.9 and PEG (percutaneous endoscopic gastrostomy) status Z93.[address] [address] 08/23/2023 Brandyn Hoy Allergic conjunctivi tis H10.10 and Facial edema R60.[address] [address] 11/18/2023 Brandyn Hoy Asthma J45.909 ; KEZIA D (gastroesophageal reflux disease) K21.9 ; IBS (irritable bowel syndrome) K58.9 and Hypoglycemia E16.[address] [address] 01/03/2024 Brandyn Hoy GERD (gastroesophage al reflux disease) K21.9 ; Severe protein-calorie malnutrition E43 ; Hypothyroidism E03.9 and Partial intestinal obstruction, unspecified as to cause K56.[address] [address] 04/10/2024 Brandyn Hoy Hypoglycemia E16.[address] [address] 04/19/2024 Brandyn Hoy Hypoglycemia E16.[address] [address] 01/10/2024 Brandyn Hoy GERD (gastroesophage al reflux disease) K21.9 ; Hypothyroidism E03.9 ; Anxiety F41.9 and IBS (irritable bowel syndrome) K58.9 [facility] [address] [place] [address] 03/21/2024 Brandyn Alas GERD (gastroesophage al reflux disease) K21.9 and Hypoglycemia E16.2 Assessments Encounter Date Diagnosis (ICD Code) Assessment Notes Treatment Notes Treatment Clinical Notes Section Notes 03/21/2024 GERD (gastroesophageal reflux disease) (ICD-10 - K21.9) 03/21/2024 Hypoglycemia (ICD-10 - E16.2) 04/10/2024 Hypoglycemia (ICD-10 - E16.2) 04/19/2024 Hypoglycemia (ICD-10 - E16.2) 07/30/2023 UTI (urinary tract infection) (ICD-10 - N39.0) 08/03/2023 Joint pain (ICD-10 - M25.50) 09/05/2023 Elevated liver enzymes (ICD-10 - R74.8) 09/06/2023 Allergic conjunctivitis (ICD-10 - H10.10) 09/06/2023 Right upper quadrant pain (ICD-10 - R10.11) 09/08/2023 Gross hematuria (ICD-10 - R31.0) 10/13/2023 IBS (irritable bowel syndrome) (ICD-10 - K58.9) 10/13/2023 Partial intestinal obstruction, unspecified as to cause (ICD-10 - K56.600) 10/19/2023 Partial intestinal obstruction, unspecified as to cause (ICD-10 - K56.600) 11/04/2023 Intractable abdominal pain (ICD-10 - R10.9) 11/04/2023 Asthma (ICD-10 - J45.909) 11/04/2023 Partial intestinal obstruction, unspecified as to cause (ICD-10 - K56.600) 11/09/2023 Partial intestinal obstruction, unspecified as to cause (ICD-10 - K56.600) 11/22/2023 Allergic conjunctivitis (ICD-10 - H10.10) 11/23/2023 Jejunostomy tube present (ICD-10 - Z93.4) 11/26/2023 Low testosterone level in female (ICD-10 - R79.89) 11/30/2023 Intractable abdominal pain (ICD-10 - R10.9) 11/30/2023 Abdominal pain (ICD-10 - R10.9) 12/23/2023 Testosterone deficiency (ICD-10 - E29.1) 01/03/2024 Partial intestinal obstruction, unspecified as to cause (ICD-10 - K56.600) 01/10/2024 GERD (gastroesophageal reflux disease) (ICD-10 - K21.9) 01/18/2024 Anxiety (ICD-10 - F41.9) 01/26/2024 GERD (gastroesophageal reflux disease) (ICD-10 - K21.9) 02/04/2024 Partial intestinal obstruction, unspecified as to cause (ICD-10 - K56.600) 02/07/2024 GERD (gastroesophageal reflux disease) (ICD-10 - K21.9) 02/21/2024 GERD (gastroesophageal reflux disease) (ICD-10 - K21.9) 03/03/2024 GERD (gastroesophageal reflux disease) (ICD-10 - K21.9) 03/06/2024 Partial intestinal obstruction, unspecified as to cause (ICD-10 - K56.600) 03/13/2024 GERD (gastroesophageal reflux disease) (ICD-10 - K21.9) 03/24/2024 GERD (gastroesophageal reflux disease) (ICD-10 - K21.9) 03/27/2024 GERD (gastroesophageal reflux disease) (ICD-10 - K21.9) 2024 Partial intestinal obstruction, unspecified as to cause (ICD-10 - K56.600) 04/04/2024 Partial intestinal obstruction, unspecified as to cause (ICD-10 - K56.600) 04/04/2024 Partial intestinal obstruction, unspecified as to cause (ICD-10 - K56.600) 04/06/2024 Partial intestinal obstruction, unspecified as to cause (ICD-10 - K56.600) 04/07/2024 GERD (gastroesophageal reflux disease) (ICD-10 - K21.9) 04/18/2024 Hypoglycemia (ICD-10 - E16.2) 04/21/2024 GERD (gastroesophageal reflux disease) (ICD-10 - K21.9) 04/27/2024 Partial intestinal obstruction, unspecified as to cause (ICD-10 - K56.600) 05/04/2024 GERD (gastroesophageal reflux disease) (ICD-10 - K21.9) 05/17/2024 GERD (gastroesophageal reflux disease) (ICD-10 - K21.9) 05/26/2024 Partial intestinal obstruction, unspecified as to cause (ICD-10 - K56.600) 05/30/2024 GERD (gastroesophageal reflux disease) (ICD-10 - K21.9) 06/12/2024 GERD (gastroesophageal reflux disease) (ICD-10 - K21.9) 06/23/2024 Partial intestinal obstruction, unspecified as to cause (ICD-10 - K56.600) 08/11/2023 GERD (gastroesophageal reflux disease) (ICD-10 - K21.9) 08/11/2023 IBS (irritable bowel syndrome) (ICD-10 - K58.9) 08/23/2023 Allergic conjunctivitis (ICD-10 - H10.10) if worse - go to er or if fever go to er 08/23/2023 Facial edema (ICD-10 - R60.0) 11/18/2023 Asthma (ICD-10 - J45.909) 11/18/2023 GERD (gastroesophageal reflux disease) (ICD-10 - K21.9) 01/03/2024 GERD (gastroesophageal reflux disease) (ICD-10 - K21.9) 01/03/2024 Severe protein-calorie malnutrition (ICD-10 - E43) 01/10/2024 GERD (gastroesophageal reflux disease) (ICD-10 - K21.9) 01/10/2024 Hypothyroidism (ICD-10 - E03.9) 07/07/2024 GERD (gastroesophageal reflux disease) (ICD-10 - K21.9) 07/21/2024 Partial intestinal obstruction, unspecified as to cause (ICD-10 - K56.600) 07/21/2024 GERD (gastroesophageal reflux disease) (ICD-10 - K21.9) 01/10/2024 Anxiety (ICD-10 - F41.9) 01/03/2024 Hypothyroidism (ICD-10 - E03.9) 11/18/2023 IBS (irritable bowel syndrome) (ICD-10 - K58.9) 08/11/2023 PEG (percutaneous endoscopic gastrostomy) status (ICD-10 - Z93.1) 06/23/2024 GERD (gastroesophageal reflux disease) (ICD-10 - K21.9) 11/18/2023 Hypoglycemia (ICD-10 - E16.2) 01/10/2024 IBS (irritable bowel syndrome) (ICD-10 - K58.9) 01/03/2024 Partial intestinal obstruction, unspecified as to cause (ICD-10 - K56.600) 09/29/2023 Other CancelRx Response got Denied on 2023-10-13 16:30:47 for 'traMADol HCl 50 MG Tablet'Pharmacy Notes: Prescription not found. Contact Pharmacy by other means Plan Of Treatment Pending Test Test Name Order Date UA (URINALYSIS, COMPLETE) 07/30/2023 ESR 08/03/2023 Urine Culture 07/30/2023 RHEUMATOID PANEL 08/03/2023 XR Abdomen KUB 1 View 11/04/2023 TESTOSTERONE, FREE AND TOTAL 11/26/2023 FSH - PROLACTIN 11/18/2023 AMYLASE 01/10/2024 CBC AUTO DIFF 01/10/2024 CRP 08/03/2023 ESTRADIOL 11/18/2023 LIPASE 01/10/2024 PROF 14(COMP METB) 01/10/2024 PROGESTERONE 11/18/2023 TESTOSTERONE, TOTAL 11/18/2023 TESTOSTERONE, TOTAL 12/23/2023 THYROID PROFILE WITH TSH 01/10/2024 THYROID PROFILE WITH TSH 11/18/2023 URINE MICROSCOPIC ONLY 07/30/2023 CT ABD and PELV W CON 11/30/2023 CT ABD and PELVIS WO CON 09/08/2023 XR ABD FLAT UP_PA CH 01/10/2024 XR CHEST 2 V 11/04/2023 XR KUB 1 VIEW 11/23/2023 Sjogren's Ab, Anti-SS-A/-SS-B 08/03/2023 US abdomen complete 09/05/2023 US abdomen complete 09/06/2023 Insurance Providers Payer Name Payer Address Payer Phone Subscriber Number Group Number Insured Name Patient Relationship to Insured Coverage Start Date Coverage End Date [employer] [place] [employer] [address] [address] [place] [address] [id number] Juan Garcia Self - patient is the insured Medications Administered Medication Instructions Date of Administration Dosage Notes Ceftriaxone 1 gram 08/23/2023 1 g 1 gram Dexamethasone, 4mg/mL 08/23/2023 12 mg 12 Medical (General) History Medical History History ICD Code IBS (irritable bowel syndrome) K58.9 Anxiety F41.9 Asthma J45.909 GERD (gastroesophageal reflux disease) K 21.9 Migraine G43.909 Hypothyroidism E03.9 Surgical History Surgery Date(Month/Year) MALS Surgery 02/2023 CHOLECYSTECTOMY APPENDECTOMY DELIVERYx3 Gastric bypass 01/2022 Hospitalization History Reason Date(Month/Year) Hypoglycemia/ Bowel Obstruction 02/07 [facility] [place] 01/08 [facility]- malnutrition, DM 06/2023 see above- [facility], [place]
--- OUTSIDE RECORDS SUMMARY | 2024-07-22 11:59 | XMS_ITS | Clinical Summary ---
Author Organization [employer] tem Address [facility] [id number] [address] [place] [address] Care Team Providers Care Thermal Engineer Name Role Phone No Pcp, No Pcp Primary Care Provider Unavailabl e Allergies Active Allergy Reactions Criticality Noted Date Comments Codeine 09/01/2017 Medications levothyroxine (SYNTHROID, LEVOTHROID) 75 MCG tablet Take 100 mcg by mouth daily. Active liothyronine (CYTOMEL) 5 MCG tablet Take 5 mcg by mouth daily. Active 23/iron ps/folic acid (PROFE FORTE ORAL) Take 1 tablet by mouth daily. Active citalopram (CeleXA) 20 mg tablet Take 20 mg by mouth daily. Active magnesium gluconate (MAGONATE) 500 mg tablet tablet Take 500 mg by mouth daily. Active ferrous sulfate 325 (65 FE) mg tablet Take 325 mg by mouth daily with breakfast. Active lancets (ONETOUCH DELICA LANCETS) 33 gauge miscIndications:A bnormal glucose tolerance affecting , antepartum One touch Delica lancets; use as directed to test 4 times daily 100 each 3 9 Active blood sugar diagnostic stripIndications: Abnormal glucose tolerance affecting , antepartum One touch Verio strips for One Touch Verio meter; test 4 times a day 150 strip 3 9 Active metFORMIN (GLUCOPHAGE) 1000 mg tabletIndications :Gestational diabetes mellitus (GDM) controlled on oral hypoglycemic drug, antepartum Take 1 tablet (1,000 mg total) by mouth 2 (two) times a day with meals. 60 tablet 6 0 Active Active Problems Problem Noted Date Diagnosed Date Hypothyroidism affecting in [facility] 09/22/2017 Family History Medical History Relation Name Comments Thyroid disease Father Diabetes Maternal Grandfather Hypertension Maternal Grandfather Thyroid disease Maternal Grandfather Hypertension Maternal Grandmother Diabetes Mother Hypertension Mother Hypertension Paternal Grandfather Diabetes Paternal Grandmother Hypertension Paternal Grandmother Thyroid disease Paternal Grandmother Relation Name Status Comments Father Maternal Grandfather Maternal Grandmother Mother Paternal Grandfather Paternal Grandmother Social History Tobacco Use Types Packs/Day Years Used Date Smoking Tobacco: Never Smokeless Tobacco: Never Alcohol Use Standard Drinks/Week Comments No 0 (1 standard drink = 0.6 oz pur e alcohol) Childcare Answer Date Recorded Childcare Unknown 07/24/2018 Employment Answer Date Recorded Employment Unknown 07/24/2018 Purpose - Life Answer Date Recorded Purpose and direction in life Unknown Comments No Sex and Gender Information Value Date Recorded Sex Assigned at Not on file Legal Sex Female 11:41 AM EDT Gender Identity Not on file Sexual Orientation Not on file Last Filed Vital Signs Vital Sign Reading Time Taken Comments Blood Pressure 140/71 03/15/2019 9:28 AM EST Pulse 91 03/15/2019 9:28 AM EST Temperature - - Respiratory Rate - - Oxygen Saturation - - Inhaled Oxygen Concentration - - Weight 119 kg (262 lb 5.6 oz) 03/15/2019 9:28 AM EST Height 170.2 cm (5' 7 ) 01/16/2019 8:31 AM EST Body Mass Index 41.09 01/16/2019 8:31 AM EST Plan of Treatment Health Maintenance Due Date Last Done Comments Depression Screening 2001 Tobacco Screening 2001 Adult BMI Screening 2007 DTaP,Tdap and Td Vaccines (1 - Tdap) 2008 Pap Smear 2010 Influenza Vaccine 10/16/2024 Medical Devices Not on file Insurance [employer] Care Teams Thermal Engineer Relationship Specialty Start Date End Date No Pcp, [id number] PCP - General Family Medicine 09/22/17
--- OUTSIDE RECORDS SUMMARY | 2024-07-22 11:59 | XMS_ITS | Encounter Summary ---
Author Organization [facility] [employer] [facility] tem Address [facility] [id number] [address] [place] [address] Care Team Providers Care Foundry Process Engineer Name Role Phone No Pcp, No Pcp Primary Care Provider Unavailabl e Encounter Details Date Type Department Care Team (Late st Contact Info) Description 09/28/2017 Orders Only Maternal- Medicine at [facility] [address] [place] [id number] Holger Alcala MD [address] [facility], [address] [place] [address] Social History Tobacco Use Types Packs/Day Years Used Date Smoking Tobacco: Never Smokeless Tobacco: Never Alcohol Use Standard Drinks/Week Comments No 0 (1 standard drink = 0.6 oz pur e alcohol) Comments Yes Sex and Gender Information Value Date Recorded Sex Assigned at Not on file Legal Sex Female 11:41 AM EDT Gender Identity Not on file Sexual Orientation Not on file documented as of this encounter Plan of Treatment Not on file documented as of this encounter Visit Diagnoses Not on filedocumented in this encounter Care Teams Foundry Process Engineer Relationship Specialty Start Date End Date No Pcp, [place] [address] PCP - General Family Medicine 09/22/17 documented as of this encounter
--- OUTSIDE RECORDS SUMMARY | 2024-07-22 12:00 | XMS_ITS | Encounter Summary ---
Author Organization [facility] [employer] [facility] Address [address] [place] [address] Care Team Providers Care Learning Facilitator Name Role Phone Thomas Alas MD Primary Care Provider [phone] Reason for Visit * Reason Onset Date Comments Appointment 04/18/2024 Encounter Details Date Type Department Care Team (Late st Contact Info) Description 04/18/2024 Telephone Central Scheduling [address] [place] [phone] Joanne Shi Appointment Social History Tobacco Use Types Packs/Day Years Used Date Smoking Tobacco: Never Smokeless Tobacco: Never Alcohol Use Standard Drinks/Week Comments No 0 (1 standard drink = 0.6 oz pur e alcohol) Comments No Sex and Gender Information Value Date Recorded Sex Assigned at Not on file Legal Sex Female 1:19 PM EDT Gender Identity Female 11/12/2017 1:20 PM EDT Sexual Orientation Straight 12/30/2023 7: 37 AM EST documented as of this encounter Miscellaneous Notes * Telephone Encounter - Jose Angel Curran Jr., MD - 04/24/2024 1:10 PM EDT I don't have any availability for nonurgent patients until 2025. The patient also follows with [facility]. I would recommend maintaining follow up as scheduled and in the meanwhile look for any clinic cancellations for which she could be added, thank you. * Telephone Encounter - Joanne Yuridia - 04/18/2024 4:33 PM EST GHN TRIAGE (NON-SYMPTOM) MESSAGE Provider: Bina Subject of call: Appointment Reason for call: Dr. Curran told patient to eturn in about 6 months (around 06/28/2024). First available appt is 05/2025. Please advise Preferred call back time: Anytime [phone] Will warm connect patient to nursing line if symptomatic or if returning call from nurse on same day. If not symptomatic or same day call back a message will be routed and it will be a 24-48 hour turn around time documented in this encounter Plan of Treatment Not on file documented as of this encounter Visit Diagnoses Not on filedocumented in this encounter Care Teams Learning Facilitator Relationship Specialty Start Date End Date Thomas Alas MD PCP - General 12/30/23 documented as of this encounter
--- OUTSIDE RECORDS SUMMARY | 2024-07-22 12:00 | XMS_ITS | Clinical Summary ---
Author Organization [facility] Address [address] [place] [address] Phone Care Team Providers Care Silk Screen Printing Racker Name Role Phone Generic Provider, No Assigned Pcp MD Primary Car e Provider Unavailable Allergies Active Allergy Reactions Criticality Noted Date Comments Codeine Nausea/vomiting Medium 12/21/2022 Nsaids (Non-Steroidal Anti-Inflammatory Drug) Nausea/vomiting Low 12/21/2022 Medications albuterol 90 mcg/actuation inhaler Inhale 2 puffs every 4 hours if needed for wheezing or shortness of breath. Active busPIRone (Buspar) 10 mg tablet Take 1 tablet (10 mg) by mouth 3 times a day. 3 Active escitalopram (Lexapro) 20 mg tablet Take 1 tablet (20 mg) by mouth once daily. Active ferrous sulfate 325 (65 Fe) MG tablet Take 1 tablet by mouth once daily with breakfast. Active hydrOXYzine HCL (Atarax) 25 mg tablet Take 1 tablet (25 mg) by mouth once daily as needed for anxiety. 3 Active levothyroxine (Synthroid, Levoxyl) 100 mcg tablet Take 1 tablet (100 mcg) by mouth once daily. 2 Active liothyronine (Cytomel) 5 mcg tablet Take 1 tablet (5 mcg) by mouth once daily. 0 Active mirtazapine (Remeron) 15 mg tablet Take 2 tablets (30 mg) by mouth once daily at bedtime. 30 MG CURRENTLY 3 Active polyethylene glycol (Glycolax, Miralax) 17 gram/dose powder Take 17 g by mouth 2 times a day. 3 Active topiramate (Topamax) 100 mg tablet Take 1 tablet (100 mg) by mouth 2 times a day. HEADACHES Active acetaminophen (Tylenol) 325 mg tabletIndications: Median arcuate ligament syndrome Take 2 tablets (650 mg) by mouth every 4 hours if needed for mild pain (1 - 3). 0 4 Active famotidine (Pepcid) 20 mg tabletIndications: Median arcuate ligament syndrome Take 1 tablet (20 mg) by mouth 2 times a day. 60 tablet 4 Active nutritional drink (Ensure High Protein) liquidIndications: Median arcuate ligament syndrome Take 90 bottles by mouth every 30 (thirty) days. Take one 237mL bottles TID with meals for 30 days 237 mL 4 Active metoclopramide (Reglan) 10 mg tabletIndications: Abdominal pain,Nausea and vomiting, unspecified vomiting type Take 0.5 tablets (5 mg) by mouth 3 times a day with meals. 90 tablet 2 4 Active pantoprazole (ProtoNix) 40 mg EC tabletIndications: Nausea and vomiting, unspecified vomiting type Take 1 tablet (40 mg) by mouth once daily in the morning. Take before meals. 30 tablet 4 Active methocarbamol (Robaxin) 750 mg tablet Take 1 tablet (750 mg) by mouth 3 times a day. Active oxyCODONE-acetamin ophen (Percocet) 5-325 mg tabletIndications: Generalized abdominal pain Take 1 tablet by mouth every 4 hours if needed for severe pain (7 - 10). 20 tablet 4 Active ondansetron ODT (Zofran-ODT) 4 mg disintegrating tabletIndications: Median arcuate ligament syndrome Take 1 tablet (4 mg) by mouth every 8 hours if needed for nausea. 30 tablet 1 4 Active Active Problems Problem Noted Date Diagnosed Date Epigastric pain 06/30/2023 Acute renal failure superimposed on chronic kidn ey disease 06/29/2023 Hypokalemia 06/29/2023 Heart failure 06/29/2023 Abdominal pain 03/16/2023 Nausea and vomiting 03/05/2023 RICHAR (obstructive sleep apnea) 03/05/2023 Asthma 03/05/2023 Anxiety 03/05/2023 Osteoarthritis 03/05/2023 Depression 03/05/2023 Median arcuate ligament syndrome 02/18/2023 Family History Medical History Relation Name Comments Asthma Brother Adán Artino COPD Maternal Grandfather Cedrick Kraus Cancer Maternal Grandfather Cedrick Kraus Heart disease Maternal Grandfather Cedrick Kraus Kidney disease Maternal Grandfather Cedrick Kraus Hypertension Maternal Grandmother Grandpa Diabetes Mother Jessica Artino Hypertension Mother Jessica Artino Anesthesia problems Paternal Grandfather Elan Kyle o Anesthesia related problems Paternal Grandfather Harmeet do Artino Arthritis Paternal Grandfather Elan Artino Hypertension Paternal Grandfather Elan Artino COPD Paternal Grandmother Grandmother Diabetes Paternal Grandmother Grandmother Relation Name Status Comments Brother Adán Artino Maternal Grandfather Cedrick Kraus Maternal Grandmother Grandpa Mother Jessica Artino Paternal Grandfather Elan Artino Paternal Grandmother Grandmother Social History Tobacco Use Types Packs/Day Years Used Date Smoking Tobacco: Never Smokeless Tobacco: Never Tobacco Cessation:Counseling Given: Not Answered Alcohol Use Standard Drinks/Week Comments Not Currently 0 (1 standard drink = 0.6 oz pur e alcohol) B1300 Health Literacy Answer Date Recor ded How often do you need to hav e someone help you when you read instructions, pamphlets, or other written material from your doctor or pharmacy? Never 06/30/2023 [facility] Utilities Answer Date Recorded In the past 12 months has [facility] [employer] gas, oil, or water [employer] threatened to shut off services in your home? No 06/30/2023 Humiliation, Afraid, Rape, and Kick questionnair e Answer Date Recorded Within the last year, have y ou been afraid of your partner or ex-partner? No 06/30/2023 Within the last year, have y ou been humiliated or emotionally abused in other ways by your partner or ex-partner? No Within the last year, have y ou been kicked, hit, slapped, or otherwise physically hurt by your partner or ex-partner? No 06/30/2023 Within the last year, have y ou been raped or forced to have any kind of sexual activity by your partner or ex-partner? No 06/30/2023 Social Connection and Isolat ion Panel [NHANES] Answer Date Recorded In a typical week, how many times do you talk on the phone with family, friends, or neighbors? Twice a week 06/30/2023 How often do you get togethe r with friends or relatives? Twice a week 06/30/2023 How often do you attend chur or worship services? More than 4 times per year 06/30/2023 Do you belong to any clubs o r organizations such as confucianist groups, unions, fraternal or athletic groups, or school groups? No 06/30/2023 How often do you attend meet ings of the clubs or organizations you belong to? Never 06/30/2023 Are you , , di vorced, , never , or living with a partner? 06/30/2023 AUDIT-C Answer Date Recorded Q1: How often do you have a drink containing alcohol? Never 06/30/2023 Q2: How many drinks containi ng alcohol do you have on a typical day when you are drinking? Patient does not drink Q3: How often do you have si x or more drinks on one occasion? Never 06/30/2023 Overall Financial Resource Strain (CARDIA) Answe r Date Recorded How hard is it for you to pa y for the very basics like food, housing, medical care, and heating? Not hard at all 06/30/2023 PHQ-2 Answer Date Recorded Patient Health Questionnaire-2 Score 2 06/30/2023 [facility] - Occupational Stress Questionnaire Answer Date Recorded Do you feel stress - tense, restless, nervous, or anxious, or unable to sleep at night because your mind is troubled all the time - these days? Rather much 06/30/2023 Exercise Vital Sign Answer Date Recorde d On average, how many days pe r week do you engage in moderate to strenuous exercise (like a brisk walk)? 3 days 06/30/2023 On average, how many minutes do you engage in exercise at this level? 10 min 06/30/2023 Hunger Vital Sign Answer Date Recorded Within the past 12 months, y ou worried that your food would run out before you got the money to buy more. Never true 06/30/19 24 Within the past 12 months, t he food you bought just didn't last and you didn't have money to get more. Never true 06/30/2023 PRAPARE - Transportation Answer Date Re corded In the past 12 months, has l ack of transportation kept you from medical appointments or from getting medications? No 06/15 In the past 12 months, has l ack of transportation kept you from meetings, work, or from getting things needed for daily living? No 06/30/2023 Housing Stability Vital Sign Answer Eugenio e Recorded In the last 12 months, was t here a time when you were not able to pay the mortgage or rent on time? No 06/30/2023 In the last 12 months, how many places have you lived? 1 06/30/2023 In the last 12 months, was t here a time when you did not have a steady place to sleep or slept in a care home (including now)? No 06/30/2023 Comments Unknown Sex and Gender Information Value Date Recorded Sex Assigned at Female 02/23/2023 4:19 AM EST Legal Sex Female 6:26 PM EST Gender Identity Female 03/02/2023 2:54 PM EST Sexual Orientation Straight 03/02/2023 2: 54 PM EST Last Filed Vital Signs Vital Sign Reading Time Taken Comments Blood Pressure 99/57 07/03/2023 7:00 AM EDT Pulse 105 07/03/2023 7:00 AM EDT Temperature 37 C (98.6 F) 07/03/2023 7:00 AM EDT Respiratory Rate 18 07/03/2023 7:00 AM EDT Oxygen Saturation 100% 07/03/2023 7:00 AM EDT Inhaled Oxygen Concentration - - Weight 76.2 kg (168 lb) 06/29/2023 6:16 PM EDT Height 167.6 cm (5' 6 ) 06/29/2023 6:16 PM EDT Body Mass Index 27.12 06/29/2023 6:16 PM EDT Plan of Treatment Upcoming Encounters Date Type Department Care Team (Late st Contact Info) Description 08/29/2024 10:15 AM EDT Office Visit [facility] Physician Fabio [address] [place] [address] [place] [address] [place] [address] Health Maintenance Due Date Last Done Comments Echocardiogram 1989 HIV Screening 1989 Lipid Panel 1989 Yearly Adult Physical 1989 MMR Vaccines (1 of 1 - Standard series) 1990 Varicella Vaccines (1 of 2 - 13+ 2-dose series) 2002 Hepatitis C Screening 2007 Hepatitis B Vaccines (1 of 3 - 19+ 3-dose series) 2008 Pneumococcal Vaccine: Pediatrics and At-Risk Adult Patients (1 of 2 - PCV) 2008 Cervical Cancer Screening 2010 HPV/Cotest 2010 Pap Smear 2010 COVID-19 Vaccine ( season) 2023 02/18/2021, 06/23/2020 TSH Level 10/27/2023 10/26/2022 Creatinine Level 07/01/2024 07/02/2023, , 06/30/2023, Additional history exists Potassium Level 07/01/2024 07/02/2023, 06/15, 06/30/2023, Additional history exists Diabetes Screening 07/02/2024 07/03/2023, 0 07/02/2023, 07/02/2023, Additional history exists Influenza Vaccine (Season Ended) 2024 11/12/2022, 11/16/2021, 01/01/2021, Additional history exists DTaP/Tdap/Td Vaccines (2 - Td or Tdap) 09/21/2026 09/21/2016 Zoster Vaccines (1 of 2) 2039 HIB Vaccines Aged Out No longer eligi ble based on patient's age to complete this topic HPV Vaccines Aged Out No longer eligi ble based on patient's age to complete this topic Hepatitis A Vaccines Aged Out No long er eligible based on patient's age to complete this topic IPV Vaccines Aged Out No longer eligi ble based on patient's age to complete this topic Meningococcal Vaccine Aged Out No sharla shayy eligible based on patient's age to complete this topic Rotavirus Vaccines Aged Out No longer eligible based on patient's age to complete this topic Medical Devices Implanted Type Area Metal Smelter Device Identifier Shelf Expiration Date Model / Serial / Lot Membrane, Seprafilm, 5 X 6 In - [id number] Implanted:Qty : 1 on 03/05/2023 by Sherry Holley MD at [facility] Implant N/A: Abdomen [employer] [id number] 10/02/2023 [id number] / / [id number] Procedures Procedure Name Priority Date/Time Associated Diagnosis Comments POCT GLUCOSE Routine 07/03/2023 7:17 AM EDT RENAL FUNCTION PANEL Routine 07/02/2023 6:47 AM EDT from Last 3 Months or Most Recently Relevant to Health Maintenance Results * (ABNORMAL) POCT GLUCOSE (07/03/2023 7:17 AM EDT) [facility] Signature POCT Glucose 121(H) 74 - 99 mg/dL 07/03/2023 7:24 AM EDT [facility] Blood Capillary blood specimen / Unknown 07/03/2023 7:17 AM EDT 07/03/2023 7:24 AM EDT Kina Ann MD LAB POINT OF CARE TE ST DOCKED DEVICE UNSOLICITED RESULTS Final Result [facility] [address] [id number] * (ABNORMAL) Renal Function Panel (07/02/2023 6:47 AM EDT) Glucose 101(H) 65 - 99 mg/dL 07/02/2023 7:53 AM EDT [facility] Sodium 137 133 - 145 mmol/L 07/02/2023 7:53 AM EDT [facility] Potassium 3.9 3.4 - 5.1 mmol/L 07/02/2023 7:53 AM EDT [facility] Chloride 103 97 - 107 mmol/L 07/02/2023 7:53 AM EDT [facility] Bicarbonate 23(L) 24 - 31 mmol/L 07/02/2023 7:53 AM EDT [facility] Urea Nitrogen 13 8 - 25 mg/dL 07/02/2023 7:53 AM EDT [facility] Creatinine 0.70 0.40 - 1.60 mg/dL 07/02/2023 7:53 AM EDT [facility] eGFR >90 >60 mL/min/1.7 3m*2 07/02/2023 7:53 AM EDT [facility] Comment: Calculations of estimated GFR are performed using the 2020 CKD-EPI Study Refit equation without the race variable for the IDMS-Traceable creatinine methods. https://jasn.asnjournals.org/content//ASN.8446779549 Calcium 8.6 8.5 - 10.4 mg/dL 07/02/2023 7:53 AM EDT [facility] Phosphorus 4.0 2.5 - 4.5 mg/dL 07/02/2023 7:53 AM T [facility] Albumin 4.0 3.5 - 5.0 g/dL 07/02/2023 7:53 AM EDT [facility] Anion Gap 11 <=19 mmol/L 07/02/2023 7:53 AM EDT [facility] Blood Venous blood specimen / Unknown 07/02/2023 6:47 AM EDT 07/02/2023 6:58 AM EDT Loreto Doty MD LAB BLOOD ORDERABLES F inal Result [facility] [id number] [place] [address] from Last 3 Months or Most Recently Relevant to Health Maintenance Insurance [facility] MEDICAID Member Subscriber Plan / Payer (Ef fective 2024-Present) Name:Abbey Garcia Relation to Subscriber:Self Name:Abbey Garcia Payer ID:[id number] (NAIC) Type:Not on file Address: [id number] [place] [address] MEDICAID Advance Directives For more information, please contact: [phone] (Available ) * Full Code (Latest Code Status on File) Date Activated Date Inactivated Comments 03/05/2023 2:37 PM Question Answer Comments Plan of Care: Code Status Discussion Completed Decision Maker: Patient Care Teams Silk Screen Printing Racker Relationship Specialty Start Date End Date Generic Provider, No Assigned P[place], [place] [address] PCP - General Cutter Grind Tool Technician 06/29/23
--- OUTSIDE RECORDS SUMMARY | 2024-07-22 12:00 | XMS_ITS | Clinical Summary ---
Author Organization [facility] Address [address] [place] [address] Care Team Providers Care Career Development Coordinator Name Role Phone Anna Mendez APRN - ZEYAD Primary Care Provider [phone] Allergies Active Allergy Reactions Criticality Noted Date Comments Adhesive Tape Other (See Comments) Medium 02/07/2020 Sensitive to certain adhesive tapes. Redness and itchy. Morphine And Codeine Nausea And Vomiting,Other (See Comments) Medium 07/07/2013 Nsaids Other (See Comments) 01/29/2022 Gastric bypass S/p RYGB S/p RYGB Oxycodone-Acetaminop hen Anaphylaxis High 12/14/2022 Wound Dressing Adhesive Other (See Comments) Medium 02/07/2020 Sensitive to certain adhesive tapes. Redness and itchy. Medications levothyroxine (SYNTHROID) 75 MCG tablet Take 1 tablet by mouth Daily Active topiramate (TOPAMAX) 100 MG tablet Take 0.5 tablets by mouth 2 times daily Active DULoxetine (CYMBALTA) 30 MG extended release capsule Take 30 mg by mouth 2 times daily Active liothyronine (CYTOMEL) 5 MCG tablet Take 1 capsule by mouth daily Active escitalopram (LEXAPRO) 20 MG tablet Take 1 tablet by mouth daily Active promethazine (PHENERGAN) 25 MG tablet Take 1 tablet by mouth every 6 hours as needed for Nausea Active busPIRone (BUSPAR) 10 MG tablet Take 1 tablet by mouth 2 times daily Active mirtazapine (REMERON) 15 MG tablet Take 1 tablet by mouth nightly Active pantoprazole sodium (PROTONIX) 40 MG PACK packet Take 1 packet by mouth every morning (before breakfast) 30 each 3 3 Active ondansetron (ZOFRAN-ODT) 4 MG disintegrating tablet Take 1 tablet by mouth 3 times daily as needed for Nausea or Vomiting 21 tablet 3 Active scopolamine (TRANSDERM-SCOP) transdermal patch Place 1 patch onto the skin every 72 hours 10 patch 3 Active Active Problems Problem Noted Date Diagnosed Date Intractable nausea and vomiting 11/28/2022 Social History Tobacco Use Types Packs/Day Years Used Date Smoking Tobacco: Never Smokeless Tobacco: Never Tobacco Cessation:Counseling Given: Not Answered Alcohol Use Standard Drinks/Week Comments Not Currently 0 (1 standard drink = 0.6 oz pur e alcohol) AUDIT-C Answer Date Recorded Q1: How often do you have a drink containing alcohol? Never 12/14/2022 Q2: How many drinks containi ng alcohol do you have on a typical day when you are drinking? Patient does not drink Q3: How often do you have si x or more drinks on one occasion? Never 12/14/2022 Interpersonal Safety Domain Source: IP Abuse Scr eening Answer Date Recorded How often does anyone, saranya rosado family and friends, physically hurt you? Not on file 12/14/2022 How often does anyone, saranya rosado family and friends, scream or curse at you? Not on file 12/14/2022 How often does anyone, saranya rosado family and friends, insult or talk down to you? Not on file 12/14/2022 How often does anyone, saranya rosado family and friends, threaten you with harm? Not on file 12/14/2022 Read-Only, Retired: Physical Abuse Denies 12/14/2022 Read-Only, Retired: Verbal Abuse Denies 12/14/2022 Read-Only, Retired: Emotional abuse Denies 12/14/2022 Read-Only, Retired: Financial Abuse Denies 12/14/2022 Read-Only, Retired: Sexual abuse Denies 12/14/2022 Comments No Sex and Gender Information Value Date Recorded Sex Assigned at Not on file Legal Sex Female 2:41 PM EST Gender Identity Not on file Sexual Orientation Not on file Last Filed Vital Signs Vital Sign Reading Time Taken Comments Blood Pressure 111/72 12/15/2022 5:23 AM EDT Pulse 62 12/14/2022 9:23 PM EDT Temperature 36.7 C (98.1 F) 12/14/2022 11:58 AM EDT Respiratory Rate 18 12/14/2022 11:58 AM EDT Oxygen Saturation 98% 12/15/2022 5:23 AM EDT Inhaled Oxygen Concentration - - Weight 83.5 kg (184 lb) 12/14/2022 11:58 AM EDT Height 170.2 cm (5' 7 ) 12/14/2022 11:58 AM EDT Body Mass Index 28.82 12/14/2022 11:58 AM EDT Plan of Treatment Health Maintenance Due Date Last Done Comments Depression Screen 2001 Varicella vaccine (1 of 2 - 13+ 2-dose series) 2002 HIV screen 2004 Hepatitis C screen 2007 Hepatitis B vaccine (1 of 3 - 19+ 3-dose series) 2008 COVID-19 Vaccine ( - season) 2023 02/18/2021, 06/23/2020 Flu vaccine (Season Ended) 09/15/202411/12, 11/16/2021, 01/01/2021, Additional history exists DTaP/Tdap/Td vaccine (2 - Td or Tdap) 09/21/2026 09/21/2016 HPV vaccine Aged Out No longer eligi ble based on patient's age to complete this topic Hepatitis A vaccine Aged Out No longe r eligible based on patient's age to complete this topic Hib vaccine Aged Out No longer eligi ble based on patient's age to complete this topic Meningococcal (ACWY) vaccine Aged Out No longer eligible based on patient's age to complete this topic Meningococcal B vaccine Aged Out No l onger eligible based on patient's age to complete this topic Pneumococcal 0-49 years Vaccine Aged Out No longer eligible based on patient's age to complete this topic Polio vaccine Aged Out No longer elig ible based on patient's age to complete this topic Insurance [employer] MEDICAID [place] Advance Directives * Full Code (Latest Code Status on File) Date Activated Date Inactivated Comments 11/28/2022 11:57 AM 12/03/2022 7:56 PM Healthcare Agents on File Name Relationship Healthcare Agent Relationshi p Communication Jessica Moise Parent Secondary Decision Maker Roddy Garcia Ex-Spouse Primary Decision Maker Care Teams Career Development Coordinator Relationship Specialty Start Date End Date Anna Mendez APRN - ZEYAD [address] [place] [address] PCP - General 11/28/22
--- OUTSIDE RECORDS SUMMARY | 2024-07-22 12:00 | XMS_ITS | Clinical Summary ---
Author Organization [facility] Address [address] [place] [address] Care Team Providers Care Loan Funder Name Role Phone Thomas Alas MD Primary Care Provider [phone] Allergies Active Allergy Reactions Criticality Noted Date Comments Codeine And Related 11/12/2017 Nsaids 12/29/2023 Medications metformin 500 MG Tab tablet Take 1,000 mg by mouth 2 times daily with meals. Active Levothyroxine 75 MCG tablet Take 1 tablet by mouth daily. Active Liothyronine Sodium (CYTOMEL PO) Take by mouth. Active topiramate 25 MG tablet Take 25 mg by mouth 2 times daily. Active topiramate 50 MG tablet 09/17/2020 Active escitalopram 20 MG tablet Take 1 tablet by mouth daily. 10/07/2022 Active Ondansetron 4 MG Tab Dispersible tablet Take 1 tablet by mouth every 8 hours as needed for Nausea. Place on tongue 10 tablet 11/02/2022 Active Promethazine 25 MG tablet Take 1 tablet by mouth every 4 hours as needed (Nausea/Vomi ting). 15 tablet 11/02/2022 Active predniSONE 5 MG tablet Take 3 tablets by mouth Daily (with dinner). 11/22/2023 Active MIRTAZAPINE PO Take 30 mg by mouth. 06/11/2023 Active busPIRone 10 MG tablet Take 1 tablet by mouth 2 times daily. Active traZODone 50 MG tablet Take 1 tablet by mouth at bedtime. 12/27/2023 Active Active Problems Problem Noted Date Diagnosed Date Impaired intestinal absorption 11/03/2023 Jejunostomy tube present 06/07/2023 Median arcuate ligament syndrome 12/29/2022 Dysfunction of sphincter of Oddi 11/06/2022 Acquired hypothyroidism 10/25/2022 Intractable vomiting with nausea 10/25/2022 Chronic constipation 08/04/2022 Mixed anxiety depressive disorder 08/04/2022 Bipolar disorder 06/21/2022 Obesity: body mass index of 35.0-39.9 12/09/2020 Severe protein-calorie malnutrition 04/06/2020 Trauma and stressor-related disorder 11/21/2019 Benign essential HTN 09/25/2019 Overview (01/25/2024): Last Assessment & Plan: Assessment: not on meds,monitored per PCP BP 141/70 pulse 62 Obstructive sleep apnea syndrome 10/07/2018 Overview (01/25/2024): wears mask every night Chronic fatigue syndrome 09/19/2018 Social History Tobacco Use Types Packs/Day Years [...] Orientation Straight 12/30/2023 7: 37 AM EST Last Filed Vital Signs Vital Sign Reading Time Taken Comments Blood Pressure 128/82 11/02/2022 1:52 PM EDT Pulse 82 11/02/2022 1:52 PM EDT Temperature 36.8 C (98.3 F) 11/02/2022 10:34 AM EDT Respiratory Rate 18 11/02/2022 1:52 PM EDT Oxygen Saturation 98% 11/02/2022 10:34 AM EDT Inhaled Oxygen Concentration - - Weight 85.3 kg (188 lb) 12/29/2023 10:23 AM EST Height 167.6 cm (5' 6 ) 12/29/2023 10:23 AM EST Body Mass Index 30.34 12/29/2023 10:23 AM EST Plan of Treatment Health Maintenance Due Date Last Done Comments HEPATITIS C VIRUS SCREENING 1989 TSH 1989 HIV SCREENING DISCUSSION 2004 HEP B VACCINE (1 of 3 - 19+ 3-dose series) 2008 CERVICAL CANCER SCREENING DISCUSSION 2010 COVID-19 VACCINE ( season) 2023 02/18/2021, 06/23/2020 INFLUENZA VACCINE (Season Ended) 2024 11/12/2022, 11/16/2021, 01/01/2021, Additional history exists TETANUS 09/21/2026 09/21/2016 TDAP (ADULT) Completed 09/21/2016 HPV VACCINE Aged Out No longer eligi ble based on patient's age to complete this topic PNEUMOCOCCAL VACCINE SERIES Aged Out No longer eligible based on patient's age to complete this topic Insurance MMO [facility] [employer] Care Teams Loan Funder Relationship Specialty Start Date End Date Thomas Alas MD PCP - General 12/30/23
--- OUTSIDE RECORDS SUMMARY | 2024-07-22 12:00 | XMS_ITS | Encounter Summary ---
Author Organization [facility] Address [address] [place] [address] Care Team Providers Care Carcass Trimmer Name Role Phone Anna Mendez MD Unavailable Unallocated, Noms Provider Primary Care Provi pako Thomas Alas MD Primary Care Provider [phone] Encounter Details Date Type Department Care Team (Late st Contact Info) Description 10/29/2023 Abstract [facility] [address] [place] [address] Vero Medeiros LPN [email or web address] [address] Social History Tobacco Use Types Packs/Day Years [...] on filedocumented in this encounter Care Teams Carcass Trimmer Relationship Specialty Start Date End Date Unallocated, [place] [address] PCP - General 07/23/22 12/13/23 Thomas Alas MD [address] [place] [address] PCP - General Family Medicine 12/14/23 Anna Mendez MD [address] [place] [address] Referring Physician Family Medicine 07/23/22 documented as of this encounter
--- OUTSIDE RECORDS SUMMARY | 2024-07-22 12:00 | XMS_ITS | Clinical Summary ---
Author Organization [facility] Address [address] [place] [address] Care Team Providers Care Chief Fundraising Officer Name Role Phone Anna Mendez MD Unavailable Thomas Alas MD Primary Care Provider [phone] Allergies Active Allergy Reactions Criticality Noted Date Comments Codeine 08/05/2022 Morphine And Codeine Nausea And Vomiting,Other,Unknown Medium 07/07/2013 Other Reaction(s): GI Upset, Nausea/vomiting, Not available, Other (See Comments), unknown Nsaids GI intolerance Low 01/29/2022 S/p RYGB Other Reaction(s): Nausea/vomiting Other Reaction(s): Other (See Comments), Unknown Gastric bypass S/p RYGB S/p RYGB Oxycodone-Acetaminop hen Anaphylaxis High 12/14/2022 Propofol 06/29/2023 Wound Dressing Adhesive Other Medium 02/07/2020 Sensitive to certain adhesive tapes. Redness and itchy. Other Reaction(s): Other (See Comments) Medications Docusate Sodium (DSS) 100 MG capsule Take 100 mg by mouth in the morning and 100 mg at noon and 100 mg in the evening. 06/24/19 23 Active escitalopram (Lexapro) 10 MG tablet 1 (one) time each day at the same time. 05/06/19 23 Active fluticasone (Flonase) 50 MCG/ACT nasal spray Administer 2 sprays into each nostril in the morning. 08/23/19 22 Active Fluticasone-Salmet mulugeta 100-50 MCG/ACT aerosol powder Inhale 1 puff in the morning and 1 puff before bedtime. 08/21/19 22 Active OneTouch Ultra test strip USE TO TEST BLOOD SUGAR TWICE DAILY 08/18/19 22 Active hydrOXYzine HCl (Atarax) 25 MG tablet TAKE 1 TABLET BY MOUTH TWICE A DAY NEEDED FOR ANXIETY/INSOMNIA 06/09/19 23 Active Lancets (OneTouch Delica Plus [id number]) misc USE TO TEST BLOOD SUGAR TWICE DAILY 08/18/19 22 Active liothyronine (Cytomel) 5 MCG tablet liothyronine 5 mcg tablet 05/22/19 23 Active mirtazapine (Remeron) 15 MG tablet Take 15 mg by mouth at bedtime. 06/15/19 23 Active Multiple Vitamin (Multi-Vitamin) tablet Take 1 tablet by mouth. Active omeprazole (PriLOSEC) [address] capsule Take 40 mg by mouth. 06/24/19 23 Active ondansetron ODT (Zofran-ODT) 4 MG disintegrating tablet DISSOLVE ONE TABLET ON TONGUE EVERY 4 HOURS NEEDED Active promethazine (Phenergan) 12.5 MG tablet Take 12.5 mg by mouth. 06/11/19 23 Active ALBUTEROL IN Inhale. Active acetaminophen (Tylenol) 500 MG tablet Take 1,000 mg by mouth every 6 (six) hours if needed. 06/24/19 23 Active topiramate (Topamax) 100 MG tablet Take by mouth. 07/30/19 23 Active levothyroxine (Synthroid, Levoxyl) 125 MCG tablet Take 125 mcg by mouth in the morning. Take before meals. Active PREDNISONE PO Take by mouth Ac tive Active Problems Problem Noted Date Diagnosed Date Patellofemoral pain syndrome of right knee 08/04 PCOS (polycystic ovarian syndrome) 08/04/2022 Overview (08/04/2022): Last Assessment & Plan: Assessment: monitored per PCP Patellofemoral arthritis 08/04/2022 Other specified noninflammatory disorders of vag janki 08/04/2022 Mixed incontinence urge and stress 08/04/2022 Mixed anxiety and depressive disorder 08/04/2022 Internal derangement of right shoulder 3 GERD (gastroesophageal reflux disease) 06/20/202 3 Overview (08/04/2022): Last Assessment & Plan: Assessment: takes meds,stable Gall stone 08/04/2022 Cystitis 08/04/2022 Arthritis 08/04/2022 Chronic constipation 08/04/2022 Anemia 08/04/2022 Overview (08/04/2022): Takes Pro FE daily. Last Assessment & Plan: Assessment: iron infusions ~1 month ago Acute pain of right knee 08/04/2022 Vaginal pain 08/04/2022 Right flank pain 08/04/2022 Rash and nonspecific skin eruption 07/22/2022 History of sleep apnea 06/24/2022 History of Isabel-en-Y gastric bypass 06/24/2022 Bipolar disorder 06/21/2022 Gastric reflux 01/29/2022 PONV (postoperative nausea and vomiting) 022 Ventral hernia without obstruction or gangrene 0 03/13/2021 Overview (08/04/2022): Last Assessment & Plan: Assessment: will have surgery Calculus of kidney 03/10/2021 History of sleeve gastrectomy 09/05/2020 Overview (08/04/2022): Last Assessment & Plan: Assessment: 08/2020, down 50 lbs Asthma 08/21/2020 Overview (08/04/2022): Last Assessment & Plan: Assessment: Advair BID and Albuterol daily Unilateral primary osteoarthritis, right knee Abnormal finding on imaging of liver 04/07/2020 Severe protein-calorie malnutrition 04/06/2020 Right upper quadrant abdominal pain 01/31/2020 Situational stress 01/03/2020 Panic disorder without agoraphobia 11/21/2019 Back pain 10/15/2019 Malaise and fatigue 10/06/2019 Chronic bilateral low back pain without sciatica 10/06/2019 Vertigo 10/06/2019 Obesity 09/25/2019 Overview (08/04/2022): Last Assessment & Plan: Assessment: BMI 31.8 Benign essential HTN 09/25/2019 Overview (08/04/2022): Last Assessment & Plan: Assessment: not on meds,monitored per PCP BP 141/70 pulse 62 Regurgitation of food 09/25/2019 Preoperative examination 09/25/2019 Nausea 09/25/2019 Obstructive sleep apnea syndrome 10/07/2018 Overview (08/04/2022): wears mask every night Last Assessment & Plan: Assessment: uses CPAP nightly Laryngopharyngeal reflux 10/07/2018 Adrenal hypofunction 10/04/2018 Insulin resistance 10/03/2018 Reactive hypoglycemia 10/03/2018 Iron deficiency 09/19/2018 Chronic fatigue syndrome 09/19/2018 Vitamin D deficiency 09/19/2018 Insomnia 09/15/2018 Maltracking of right patella 06/27/2018 Internal derangement of right knee 06/15/2018 Osteoarthritis of patellofemoral joint 9 Chondromalacia of patella, right 05/30/2018 Arthritis of right knee 05/30/2018 Hypothyroidism affecting in second tri mester 09/22/2017 Hypertensive disorder 09/13/2017 39 weeks gestation of 11/23/2016 Polycystic ovaries 10/02/2013 Asthma without status asthmaticus 10/02/2013 Gastric ulcer 02/15/2013 Overview (08/04/2022): Last Assessment & Plan: Assessment: had in 2013,moniotred per PCP Family History Medical History Relation Name Comments No Known Problems Daughter 1 2 Hypertension Father Adán Artino Thyroid disease Father Adán Artino Cancer Maternal Grandfather Cedrick Efra Diabetes Maternal Grandfather Cedrick Kraus Heart disease Maternal Grandfather Cedrick Kraus Hypertension Maternal Grandfather Cedrick Kraus Thyroid disease Maternal Grandfather Cedrick Kraus Hypertension Maternal Grandmother Erica Kraus Diabetes Mother Jessica Artino Hypertension Mother Jessica Artino Hypertension Paternal Grandfather Elna Artino Diabetes Paternal Grandmother Gladys Artino Heart disease Paternal Grandmother Gladys Artino Hypertension Paternal Grandmother Gladys Artino Thyroid disease Paternal Grandmother Gladys Artino Diabetes Sibling Hypertension Sibling No Known Problems Son Relation Name Status Comments Daughter 1 Alive Daughter 2 Alive Father Adán Artino Alive Maternal Grandfather Cedrick Kraus Maternal Grandmother Erica Kraus Mother Jessica Artino Alive Paternal Grandfather Elan Artino Paternal Grandmother Gladys Artino Sibling Son Alive Social History Tobacco Use Types Packs/Day Years Used Date Smoking Tobacco: Never Smokeless Tobacco: Never Tobacco Cessation:Counseling Given: Not Answered Alcohol Use Standard Drinks/Week Comments Never 0 (1 standard drink = 0.6 oz pur e alcohol) Caffeine: 1-2 cups/day Comments No Sex and Gender Information Value Date Recorded Sex Assigned at Not on file Legal Sex Female 8:33 PM EDT Gender Identity Not on file Sexual Orientation Not on file Last Filed Vital Signs Vital Sign Reading Time Taken Comments Blood Pressure 118/80 10/25/2023 8:40 AM EDT Pulse - - Temperature - - Respiratory Rate - - Oxygen Saturation - - Inhaled Oxygen Concentration - - Weight 83.9 kg (185 lb) 12/14/2023 2:11 PM EDT Height 167.6 cm (5' 6 ) 12/14/2023 2:11 PM EDT Body Mass Index 29.86 12/14/2023 2:11 PM EDT Plan of Treatment Health Maintenance Due Date Last Done Comments Influenza Vaccine (Season Ended) 2024 11/12/2022, 11/16/2021, 01/01/2021, Additional history exists Cervical Cancer Screening 05/21/2025 HPV/Cotest 05/21/2025 Pap Smear 05/21/2025 05/21/2020 Procedures Procedure Name Priority Date/Time Associated Diagnosis Comments PAP SMEAR Routine 05/21/2020 12:00 AM EDT from Last 3 Months or Most Recently Relevant to Health Maintenance Results * Pap Smear (05/21/2020 12:00 AM EDT) Swab Cervical swab / Unknown us Historical Provider MD LAB CYTOLOGY ORDERABLES F inal Result [facility] from Last 3 Months or Most Recently Relevant to Health Maintenance Insurance [address] [place] [address] [employer] Care Teams Chief Fundraising Officer Relationship Specialty Start Date End Date Thomas Alas MD [address] [place] [address] PCP - General Family Medicine 12/14/23 Anna Mendez MD [address] [place] [address] Referring Physician Family Medicine 07/23/22
--- NOTE | 2024-07-22 12:18 | ED.GENADUL1 ---
HPI HPI - General Adult General Chief complaint: Abdominal Pain Stated complaint: MICHAEL ITCHY FEELS NAUSEATED Time Seen by Provider: 07/22/24 12:05 Source: patient Mode of arrival: walk-in Limitations: no limitations History of Present Illness HPI narrative: 34-year-old female presents for redness to her feeding tube site. She has had this for a few days and she was started on 2 antibiotics yesterday by her PCP, cefdinir and another 1 that she cannot recall the name of. She states there has been some drainage. No fever or vomiting. Related Data Home Medications ?Medication ?Instructions ?Recorded ?Confirmed hydroxyzine HCl 25 mg tablet 25 mg PO BID PRN anxiety 09/17/22 06/21/24 liothyronine 5 mcg tablet 5 mcg PO QDAY 09/17/22 06/21/24 topiramate 100 mg tablet 100 mg PO BID 09/17/22 06/21/24 buspirone 10 mg tablet 10 mg PO TID 06/14/23 06/21/24 linaclotide 290 mcg capsule 290 mcg PO DAILY 06/14/23 06/21/24 (Linzess) metoclopramide HCl 10 mg tablet 10 mg PO AC PRN nausea and vomiting 06/14/23 06/21/24 albuterol sulfate 90 mcg/actuation 2 puff inhalation Q6H PRN 06/15/23 06/21/24 aerosol inhaler shortness of breath or wheezing escitalopram oxalate 20 mg tablet 20 mg PO DAILY 06/15/23 06/21/24 levothyroxine 75 mcg tablet 75 mcg PO DAILY 06/15/23 06/21/24 mirtazapine 30 mg tablet 45 mg PO .HS 06/15/23 06/21/24 acetaminophen 325 mg tablet (Pain 650 mg PO Q4H PRN pain 06/24/23 06/21/24 Relief (acetaminophen)) Nutrin 45 ml feeding tube Q1H 03/29/24 06/21/24 blood sugar diagnostic (OneTouch 03/29/24 03/29/24 Ultra Test strips) blood-glucose meter (OneTouch 03/29/24 03/29/24 Ultra2 Meter) blood-glucose sensor (FreeStyle 03/29/24 03/29/24 Hunter 3 Plus Sensor device) fentanyl 25 mcg/hr transdermal 1 patch transdermal Q72H 03/29/24 06/21/24 patch hydrocodone 5 mg-acetaminophen 325 1 tab PO Q6H PRN pain 03/29/24 06/21/24 mg tablet lancets 30 gauge (OneTouch Delica 03/29/24 03/29/24 Plus Lancet) methocarbamol 500 mg tablet 750 mg PO Q6H 03/29/24 06/21/24 omeprazole 40 mg capsule,delayed 40 mg PO BID 03/29/24 06/21/24 release pen needle, diabetic 32 gauge x 03/29/24 03/29/24 (BD Stefania 2nd Gen Pen Needle) prucalopride 2 mg tablet 2 mg PO DAILY 03/29/24 06/21/24 trazodone 100 mg tablet 100 mg PO .qhs 03/29/24 06/21/24 dexamethasone 2 mg tablet 3 mg PO DAILY 06/21/24 06/21/24 ergocalciferol (vitamin D2) 1,250 1,250 mcg PO .Q7 06/21/24 06/21/24 mcg (50,000 unit) capsule Previous Rx's ?Medication ?Instructions ?Recorded prochlorperazine maleate 10 mg 10 mg PO Q6H PRN nausea and 06/16/23 tablet (Compazine) vomiting #60 tabs tramadol 50 mg tablet 50 mg PO Q6H PRN pain #28 tabs 06/16/23 Allergies Allergy/AdvReac Type Severity Reaction Status Date / Time adhesive Allergy Rash Verified 07/22/24 11:56 NSAIDS (Non-Steroidal Allergy intolerance Verified 06/21/24 11:00 Anti-Inflamma codeine AdvReac Vomiting Verified 07/22/24 11:56 Opioid HPI Opioid Management Most Recent Opioid Data: Last Pain Scale 6 Today, 11:56 Last ORT Total Score 2 03/29/24, 14:53 Last ORT Risk Category Low Risk 03/29/24, 14:53 Review of Systems ROS Narrative A ten point review of systems is negative except as noted above. [facility] Medical History (Updated 07/22/24 @ 13:25 by Reji Damon MD) Hypoglycemia ?E16.2 - Hypoglycemia, unspecified (ICD-10) Gastroenteritis ?K52.9 - Noninfective gastroenteritis and colitis, unspecified (ICD-10) Feeding by G-tube ?Z93.1 - Gastrostomy status (ICD-10) Abdominal pain ?R10.9 - Unspecified abdominal pain (ICD-10) Small bowel intussusception ?K56.1 - Intussusception (ICD-10) Nausea and vomiting ?R11.2 - Nausea with vomiting, unspecified (ICD-10) Flank pain ?R10.9 - Unspecified abdominal pain (ICD-10) Abdominal pain ?R10.9 - Unspecified abdominal pain (ICD-10) Acute abdomen ?R10.0 - Acute abdomen (ICD-10) Intractable nausea and vomiting ?R11.2 - Nausea with vomiting, unspecified (ICD-10) Intractable abdominal pain ?R10.9 - Unspecified abdominal pain (ICD-10) Depression ?F32.A - Depression, unspecified (ICD-10) Asthma ?J45.909 - Unspecified asthma, uncomplicated (ICD-10) Dyspareunia Pelvic pain ?R10.2 - Pelvic and perineal pain (ICD-10) Ovarian cyst ?N83.209 - Unspecified ovarian cyst, unspecified side (ICD-10) PONV (postoperative nausea and vomiting) ?R11.2 - Nausea with vomiting, unspecified (ICD-10) ?Z98.890 - Other specified postprocedural states (ICD-10) PCOS (polycystic ovarian syndrome) ?E28.2 - Polycystic ovarian syndrome (ICD-10) Hypothyroidism (acquired) ?E03.9 - Hypothyroidism, unspecified (ICD-10) Anxiety ?F41.9 - Anxiety disorder, unspecified (ICD-10) GERD (gastroesophageal reflux disease) ?K21.9 - Gastro-esophageal reflux disease without esophagitis (ICD-10) Sleep apnea ?G47.30 - Sleep apnea, unspecified (ICD-10) Anemia ?D64.9 - Anemia, unspecified (ICD-10) Fibromyalgia ?M79.7 - Fibromyalgia (ICD-10) Syncope (07/07/13) ?R55 - Syncope and collapse (ICD-10) Shingles ?B02.9 - Zoster without complications (ICD-10) Headache ?R51.9 - Headache, unspecified (ICD-10) Migraine ?G43.909 - Migraine, unspecified, not intractable, without status migrainosus (ICD-10) Mechanical ileus (01/31/20) ?K56.609 - Unspecified intestinal obstruction, unspecified as to partial versus complete obstruction (ICD-10) COVID-19 (~02/2020) ?U07.1 - COVID-19 (ICD-10) Kidney stones ?N20.0 - Calculus of kidney (ICD-10) Surgical History S/P percutaneous endoscopic gastrostomy (PEG) tube placement ?Z93.1 - Gastrostomy status (ICD-10) 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 - Celiac artery compression syndrome (ICD-10) H/O shoulder surgery (2022) ?Z98.890 - Other specified postprocedural states (ICD-10) History of hip surgery ?Z98.890 - Other specified postprocedural states (ICD-10) S/P right knee arthroscopy ?Z98.890 - Other specified postprocedural states (ICD-10) S/P left knee arthroscopy ?Z98.890 - Other specified postprocedural states (ICD-10) Hx of tonsillectomy ?Z90.89 - Acquired absence of other organs (ICD-10) History of thoracic surgery (~2021) ?Z98.890 - Other specified postprocedural states (ICD-10) History of esophagogastroduodenoscopy (EGD) (10/04/13) ?Z98.890 - Other specified postprocedural states (ICD-10) History of cholecystectomy (10/06/13) ?Z90.49 - Acquired absence of other specified parts of digestive tract (ICD-10) Delivery by section (~2016) Delivery by section (01/17/18) H/O colonoscopy (~2018) ?Z98.890 - Other specified postprocedural states (ICD-10) S/P right knee arthroscopy (07/21/18) ?Z98.890 - Other specified postprocedural states (ICD-10) Delivery by section (06/19/19) History of appendectomy (09/25/19) ?Z90.49 - Acquired absence of other specified parts of digestive tract (ICD-10) H/O laparoscopy (11/10/19) ?Z98.890 - Other specified postprocedural states (ICD-10) History of liver biopsy (~04/2020) ?Z98.890 - Other specified postprocedural states (ICD-10) H/O laparoscopy (07/18/20) ?Z98.890 - Other specified postprocedural states (ICD-10) H/O arthroscopy of right knee (08/07/20) ?Z98.890 - Other specified postprocedural states (ICD-10) S/P laparoscopic sleeve gastrectomy (09/03/20) ?Z98.84 - Bariatric surgery status (ICD-10) H/O: hysterectomy (11/12/20) ?Z90.710 - Acquired absence of both cervix and uterus (ICD-10) History of hernia repair (03/20/21) ?Z98.890 - Other specified postprocedural states (ICD-10) ?Z87.19 - Personal history of other diseases of the digestive system (ICD-10) Family History (Updated 06/14/23 @ 16:56 by Marsha Du) Other Family history of cancer Family history of diabetes mellitus Family history of hypertension Family history of myocardial infarction PONV (postoperative nausea and vomiting) Social History (Updated 06/14/23 @ 16:57 by Marsha Du) Within the past year, how often did you have a drink containing alcohol: never Score interpretation: A score less than 3 is consistent with normal alcohol consumption. Smoking status: Never smoker Non-prescribed substance use: denies use Highest level of school completed/degree received: Master's degree Are you now , , , , never or living with a partner: In a typical week, how many times do you talk on the telephone with family, friends, or neighbors: 3 or more times per week How often do you get together with friends or relatives: twice per week How often do you attend confucianism or pentecostalism services: 4 or more times per year Do you belong to any clubs or organizations such as confucianism groups unions, fraternal or athletic groups, or school groups: no Total score: 3 Score interpretation: A score of greater than or equal to 2 indicates the lowest level of social isolation. Little interest or pleasure in doing things: not at all Feeling down, depressed, or hopeless: not at all Feel stressed/tense/nervous/anxious/difficulty sleeping: to some extent Do you think of yourself as: straight/heterosexual Gender Identity: female Exam Narrative Exam Narrative: Nurses note and vital signs reviewed and patient is not hypoxic. General: The patient appears well and in no apparent distress. Patient is resting comfortably on cart. Skin: Warm, dry, no pallor noted. Head: Normocephalic, atraumatic Eye: Normal conjunctiva, no drainage Ears, Nose, Mouth, and Throat: oral mucosa is moist. Nares patent. Cardiovascular: Regular Rate and Rhythm Respiratory: Patient is in no distress, no accessory muscle use, lungs are clear to auscultation, no wheezing, rales or rhonchi Back: non-tender, no bruise or rash GI: Feeding tube in place. She has a rectangular well-demarcated area of erythema. There is no abscess or notable purulent drainage. No rash elsewhere. Musculoskeletal: The patient has no evidence of calf tenderness, no pitting edema, symmetrical pulses noted bilaterally Neurological: A&O, normal speech Psychiatric: Cooperative Constitutional Vital Signs, click to edit/add: Last Vital Signs Temp 98.1 F 07/22/24 11:56 Pulse 79 07/22/24 11:56 Resp 20 07/22/24 11:56 BP 130/82 07/22/24 11:56 Pulse Ox 97 07/22/24 11:56 Course Vital Signs Vital signs: Vital Signs Temperature 98.1 F 07/22/24 11:56 Pulse Rate 79 07/22/24 11:56 Respiratory Rate 20 07/22/24 11:56 Blood Pressure 130/82 07/22/24 11:56 Pulse Oximetry 97 07/22/24 11:56 Temperature 98.1 F 07/22/24 11:56 Pulse Rate 79 07/22/24 11:56 Respiratory Rate 20 07/22/24 11:56 Blood Pressure 130/82 07/22/24 11:56 Pulse Oximetry 97 07/22/24 11:56 Medical Decision Making MDM Narrative Medical decision making narrative: WBC is normal. She is already on 2 antibiotics and has been on those for approximately 24 hours. She will continue the antibiotics. Given the rectangular distribution of the erythema I suspect that this is also a contact dermatitis from the dressing. She was recommended some hydrocortisone for the itching. Treatment diagnosis and follow-up were discussed with the patient Differential Diagnosis Differential Diagnosis: Cellulitis, contact dermatitis Lab Data Lab results reviewed: Yes I reviewed the patient's lab results Labs: Lab Results 07/22/24 Range/Units 12:40 WBC 6.4 (4.0-11.0) 10^3/uL RBC 3.63 L (4.20-5.40) 10^6/uL Hgb 11.8 L (12.0-16.0) g/dL Hct 34.3 L (36.0-48.0) % MCV 94.5 (81.0-99.0) fL MCH 32.5 (26.7-34.0) pg MCHC 34.4 (29.9-35.2) g/dL RDW 12.7 (11.0-15.0) % Plt Count 275 (150-450) 10^3/uL MPV 10.5 (9.5-13.5) fL Neut % (Auto) 72.6 (43.0-75.0) % Lymph % (Auto) 21.7 (20.5-60.0) % [place] % (Auto) 5.0 (1.7-12.0) % Eos % (Auto) 0.2 L (0.9-7.0) % Baso % (Auto) 0.3 (0.2-2.0) % Neut # (Auto) 4.7 (1.4-6.5) 10^3/uL Lymph # (Auto) 1.4 (1.2-3.8) 10^3/uL [place] # (Auto) 0.3 (0.3-0.8) 10^3/uL Eos # (Auto) 0.0 (0.0-0.7) 10^3/uL Baso # (Auto) 0.0 (0.0-0.1) 10^3/uL Abs Immat Gran (auto) 0.01 (0.00-0.03) 10^3/uL Imm/Tot Granulo (auto) 0.2 (0.0-0.5) % Sodium 144 (136-145) mmol/L Potassium 3.9 (3.5-5.1) mmol/L Chloride 107 (98-107) mmol/L Carbon Dioxide 25.1 (21.0-32.0) mmol/L Anion Gap 15.8 BUN 8.0 (7.0-18.0) mg/dL Creatinine 0.68 (0.55-1.02) mg/dL Est GFR ( Amer) >60 (>=60 mL/min/1.73m^2) Est GFR (Non-Af Amer) >60 (>=60 mL/min/1.73m^2) BUN/Creatinine Ratio 11.8 Glucose 90 (74-106) mg/dL Calcium 8.7 (8.5-10.1) mg/dL Discharge Plan Discharge Chief Complaint: Abdominal Pain Clinical Impression: Cellulitis, Contact dermatitis Patient Disposition: Home, Self-Care Time of Disposition Decision: 13:24 Condition: Good Mode of Transportation: Private Vehicle Prescriptions / Home Meds: No Action (DME) blood-glucose meter [Cittadinouch Ultra2 Meter] Misc MISCELLANEOUS (DME) OneTouch Ultra Test Strip MISCELLANEOUS fentanyl 25 mcg/hr patch 72 hour 1 patch transdermal Q72H (DME) FreeStyle Hunter 3 Plus Sensor Device MISCELLANEOUS hydrocodone-acetaminophen 5-325 mg tablet 1 tab PO Q6H PRN (Reason: pain) (DME) lancets [SecondMarketTouch Delica Plus Lancet] 30 gauge misc MISCELLANEOUS methocarbamol 500 mg tablet 750 mg PO Q6H omeprazole 40 mg capsule,delayed release(DR/EC) 40 mg PO BID (DME) pen needle, diabetic [BD Stefania 2nd Gen Pen Needle] 32 gauge x 5/32 needle MISCELLANEOUS prucalopride 2 mg tablet 2 mg PO DAILY trazodone 100 mg tablet 100 mg PO .qhs Nutrin 45 ml feeding tube Q1H Rx Instructions: tube feed that runs at bedtime at 45ml/hr. continuous drip hydroxyzine HCl 25 mg tablet 25 mg PO BID PRN (Reason: anxiety) liothyronine 5 mcg tablet 5 mcg PO QDAY topiramate 100 mg tablet 100 mg PO BID buspirone 10 mg tablet 10 mg PO TID metoclopramide HCl 10 mg tablet 10 mg PO AC PRN (Reason: nausea and vomiting) Linzess 290 mcg capsule 290 mcg PO DAILY albuterol sulfate 90 mcg/actuation HFA aerosol inhaler 2 puff INHALATION Q6H PRN (Reason: shortness of breath or wheezing) levothyroxine 75 mcg tablet 75 mcg PO DAILY escitalopram oxalate 20 mg tablet 20 mg PO DAILY mirtazapine 30 mg tablet 45 mg PO .HS prochlorperazine maleate [Compazine] 10 mg tablet 10 mg PO Q6H PRN (Reason: nausea and vomiting) Qty: 60 3RF tramadol 50 mg tablet 50 mg PO Q6H PRN (Reason: pain) Qty: 28 0RF acetaminophen [Pain Relief (acetaminophen)] 325 mg tablet 650 mg PO Q4H PRN (Reason: pain) dexamethasone 2 mg tablet 3 mg PO DAILY ergocalciferol (vitamin D2) 1,250 mcg (50,000 unit) capsule 1,250 mcg PO .Q7 Print Language: Turkmen Instructions: Contact Dermatitis (ED), Cellulitis (ED) Additional Instructions: Continue your antibiotics. Referrals: Thomas Alas MD [Primary Care Provider, Family Practice] - 1 week
[2024-07-22] MEDS: DIPHENHYDRAMINE HCL 25 MG CAPSULE 50 MG PO (12:44)
[2024-07-22 12:53] LABS: Basophils Percent Auto 0.3 % (0.2-2.0); Eosinophils Percent Auto 0.2 % (0.9-7.0); Hematocrit 34.3 % (36.0-48.0); Hemoglobin 11.8 g/dL (12.0-16.0); Immature Granulocytes Abs Auto 0.01 10^3/uL (0.00-0.03); Immature Granulocytes Pct Auto 0.2 % (0.0-0.5); Lymphocytes Absolute Auto 1.4 10^3/uL (1.2-3.8); Lymphocytes Percent Auto 21.7 % (20.5-60.0); Mean Corpuscular HGB Conc 34.4 g/dL (29.9-35.2); Mean Corpuscular Hemoglobin 32.5 pg (26.7-34.0); Mean Corpuscular Volume 94.5 fL (81.0-99.0); Mean Platelet Volume 10.5 fL (9.5-13.5); Monocytes Absolute Auto 0.3 10^3/uL (0.3-0.8); Neutrophils Absolute Auto 4.7 10^3/uL (1.4-6.5); Neutrophils Percent Auto 72.6 % (43.0-75.0); Platelet Count 275 10^3/uL (150-450); Red Blood Count 3.63 10^6/uL (4.20-5.40); Red Cell Distribution Width 12.7 % (11.0-15.0); White Blood Count 6.4 10^3/uL (4.0-11.0)
[2024-07-22 13:07] LABS: Anion Gap 15.8; BUN Creatinine Ratio 11.8; Calcium 8.7 mg/dL (8.5-10.1); Carbon Dioxide 25.1 mmol/L (21.0-32.0); Chloride 107 mmol/L (98-107); Estimated GFR (African America >60 (>=60 mL/min/1.73m^2); Estimated GFR (Non-African Ame >60 (>=60 mL/min/1.73m^2); Glucose 90 mg/dL (74-106); Potassium 3.9 mmol/L (3.5-5.1); Sodium 144 mmol/L (136-145)
[2024-07-22 13:31] VITALS: BP 134/78; PULSE 78; O2SAT 100
== END 2024-07-22 13:32 | disposition home or self-care (01) ==
PROVIDERS: Emergency Provider Emergency Medicine; PCP Family Medicine
DX: K94.22 Gastrostomy infection (principal); L03.311 Cellulitis of abdominal wall; L25.9 Unspecified contact dermatitis, unspecified cause; Z90.710 Acquired absence of both cervix and uterus; Z90.49 Acquired absence of other specified parts of digestive tract
CPT/HCPCS: 36415; 80048; 85025; 99283

== ENCOUNTER 2024-08-02 07:26 | Emergency (ER) | payer MEDICAID, SELFPAY ==
[2024-08-02 07:41] VITALS: BP 127/84; PULSE 83; TEMP 36.7; O2SAT 98; BMI 30.3
[2024-08-02 08:08] LABS: Basophils Percent Auto 0.3 % (0.2-2.0); Eosinophils Percent Auto 0.4 % (0.9-7.0); Hematocrit 36.1 % (36.0-48.0); Hemoglobin 12.4 g/dL (12.0-16.0); Immature Granulocytes Abs Auto 0.02 10^3/uL (0.00-0.03); Immature Granulocytes Pct Auto 0.2 % (0.0-0.5); Lymphocytes Absolute Auto 1.2 10^3/uL (1.2-3.8); Lymphocytes Percent Auto 12.7 % (20.5-60.0); Mean Corpuscular HGB Conc 34.3 g/dL (29.9-35.2); Mean Corpuscular Hemoglobin 32.2 pg (26.7-34.0); Mean Corpuscular Volume 93.8 fL (81.0-99.0); Mean Platelet Volume 10.4 fL (9.5-13.5); Monocytes Absolute Auto 0.3 10^3/uL (0.3-0.8); Monocytes Percent Auto 3.4 % (1.7-12.0); Neutrophils Absolute Auto 7.5 10^3/uL (1.4-6.5); Platelet Count 246 10^3/uL (150-450); Red Blood Count 3.85 10^6/uL (4.20-5.40); Red Cell Distribution Width 12.6 % (11.0-15.0); White Blood Count 9.1 10^3/uL (4.0-11.0)
--- NOTE | 2024-08-02 08:10 | XR_ITS ---
The [address] [address] Patient Name: JUAN KONG MRN: [id number] date: 1990 Sex: F Assigned Patient Location: ER Current Patient Location: ER Accession/Order Number: [id number] Exam Date: 08/02/2024 09:12 Report Date: 08/02/2024 09:19 At the request of: MASSIMO PRICE MD Procedure: XR acute abdomen series ACUTE ABDOMEN SERIES WITH PA CHEST: CLINICAL HISTORY: abdomen pain, greatest at the right lower quadrant. Vomiting. COMPARISON: 01/12/2024 The chest film shows no acute cardiopulmonary findings. A central venous catheter seen on the right. Supine and upright views of the abdomen and pelvis show a suspected percutaneous feeding tube at the left upper quadrant. There is mild air within the colon, predominantly at the transverse colon. Mild stool is visualized at the ascending, descending and sigmoid colon. There is no suspected fecal impaction. A mildly distended small bowel loop is seen at the left upper quadrant with an air-fluid level. No other dilated small bowel is noted. No free air is seen. There are no soft tissue masses or suspect renal calculi. Hemostasis clips are present at the right upper quadrant. The bony structures are intact. XR/XR acute abdomen series IMPRESSION: NONSPECIFIC BOWEL GAS PATTERN WITH A SINGLE MILDLY DISTENDED SMALL BOWEL LOOP ON THE LEFT WITH AN AIR-FLUID LEVEL. EARLY OR PARTIAL OBSTRUCTION IS NOT COMPLETELY EXCLUDED. CORRELATION AND FOLLOW-UP WILL BE NEEDED. Impression dictated by: Maricruz Hutchinson M.D. 08/02/2024 9:19 AM Dictation Location: [place] [address] Electronically authenticated by: [id number] Y Date: 08/02/2024 09:19
--- NOTE | 2024-08-02 08:14 | ED.GENADUL1 ---
HPI HPI - General Adult General Chief complaint: Abdominal Pain Stated complaint: ABDOMINAL PAIN NAUSEA VOMITING Time Seen by Provider: 08/02/24 08:07 Source: patient Mode of arrival: walk-in Limitations: no limitations History of Present Illness HPI narrative: Patient is a 34-year-old female who is presenting to the ER today with chief complaint of right flank pain that started yesterday, and also nausea vomiting. Patient initially rated her pain 7/10. Patient is also having midepigastric to right upper quadrant discomfort. Patient has a longstanding history of chronic nausea coming, abdominal pain. Patient does have a port to right upper chest. Patient also has a PEG tube to her left lower quadrant as well. Patient does have access to IV fluids at home that she does give herself if needed. Patient's GI specialist at the [facility] in [place]. Patient has no sick contacts. No headache. No neck pain. No chest pain or shortness of breath. No urinary complaints. No diarrhea. No other acute complaints. Patient was in the ER several hours before I could see the patient and evaluate her secondary to her critical patient denies with for several hours. Blameless apologies were given, patient is understanding. All systems are negative except as noted/marked. All systems reviewed and otherwise negative. Nurses note and vital signs reviewed and patient is not hypoxic. General: The patient appears mild distress secondary to pain, nausea vomiting and discomfort.. Patient is resting uncomfortably on cart. Patient is not toxic, lethargic, or listless Skin: Warm, dry, no pallor noted. There is no rash noted. No petechiae, purpura. Head: Normocephalic, atraumatic Eye: Normal conjunctiva, no drainage, EOMI. PERRL Ears, Nose, Mouth, and Throat: oral mucosa is moist. Nares patent. Mouth without vesicles. Cardiovascular: Regular Rate and Rhythm, no murmur, gallop, rub Respiratory: Patient is in no distress, no accessory muscle use, lungs are clear to auscultation, no wheezing, rales or rhonchi Back: non-tender, no CVA tenderness bilaterally to percussion. No CT LS midline pain GI: Soft, obese, mild to moderate midepigastric and right upper quadrant tenderness to palpation, no masses appreciated. No rebound, guarding, or rigidity noted. No distention. No peritoneal signs, no flank pain bilateral. Patient stated her pain in those areas when I assessed her a few hours after she has been here has much improved then when she initially came into the ER. Musculoskeletal: Patient has full range of motion of all of the extremities, no motor, sensory, or focal neurological deficits Neurological: A&O x4, normal speech Psychiatric: Cooperative Related Data Home Medications ?Medication ?Instructions ?Recorded ?Confirmed hydroxyzine HCl 25 mg tablet 25 mg PO BID PRN anxiety 09/17/22 06/21/24 liothyronine 5 mcg tablet 5 mcg PO QDAY 09/17/22 06/21/24 topiramate 100 mg tablet 100 mg PO BID 09/17/22 06/21/24 buspirone 10 mg tablet 10 mg PO TID 06/14/23 06/21/24 linaclotide 290 mcg capsule 290 mcg PO DAILY 06/14/23 06/21/24 (Linzess) metoclopramide HCl 10 mg tablet 10 mg PO AC PRN nausea and vomiting 06/14/23 06/21/24 albuterol sulfate 90 mcg/actuation 2 puff inhalation Q6H PRN 06/15/23 06/21/24 aerosol inhaler shortness of breath or wheezing escitalopram oxalate 20 mg tablet 20 mg PO DAILY 06/15/23 06/21/24 levothyroxine 75 mcg tablet 75 mcg PO DAILY 06/15/23 06/21/24 mirtazapine 30 mg tablet 45 mg PO .HS 06/15/23 06/21/24 acetaminophen 325 mg tablet (Pain 650 mg PO Q4H PRN pain 06/24/23 06/21/24 Relief (acetaminophen)) Nutrin 45 ml feeding tube Q1H 03/29/24 06/21/24 blood sugar diagnostic (Diarize 03/29/24 03/29/24 Ultra Test strips) blood-glucose meter (Forensic Logicuch 03/29/24 03/29/24 Ultra2 Meter) blood-glucose sensor (FreeStyle 03/29/24 03/29/24 Hunter 3 Plus Sensor device) fentanyl 25 mcg/hr transdermal 1 patch transdermal Q72H 03/29/24 06/21/24 patch hydrocodone 5 mg-acetaminophen 325 1 tab PO Q6H PRN pain 03/29/24 06/21/24 mg tablet lancets 30 gauge (OneTouch Delica 03/29/24 03/29/24 Plus Lancet) methocarbamol 500 mg tablet 750 mg PO Q6H 03/29/24 06/21/24 omeprazole 40 mg capsule,delayed 40 mg PO BID 03/29/24 06/21/24 release pen needle, diabetic 32 gauge x 03/29/24 03/29/2432 (BD Stefania 2nd Gen Pen Needle) prucalopride 2 mg tablet 2 mg PO DAILY 03/29/24 06/21/24 trazodone 100 mg tablet 100 mg PO .qhs 03/29/24 06/21/24 dexamethasone 2 mg tablet 3 mg PO DAILY 06/21/24 06/21/24 ergocalciferol (vitamin D2) 1,250 1,250 mcg PO .Q7 06/21/24 06/21/24 mcg (50,000 unit) capsule Previous Rx's ?Medication ?Instructions ?Recorded prochlorperazine maleate 10 mg 10 mg PO Q6H PRN nausea and 06/16/23 tablet (Compazine) vomiting #60 tabs tramadol 50 mg tablet 50 mg PO Q6H PRN pain #28 tabs 06/16/23 ondansetron 4 mg disintegrating 4 mg PO Q4H PRN nausea and 08/02/24 tablet vomiting 3 days #6 tabs promethazine 25 mg rectal 25 mg WA Q6H PRN nausea and 08/02/24 suppository vomiting #6 ea Allergies Allergy/AdvReac Type Severity Reaction Status Date / Time adhesive Allergy Rash Verified 08/02/24 07:41 NSAIDS (Non-Steroidal Allergy intolerance Verified 08/02/24 07:41 Anti-Inflamma codeine AdvReac Vomiting Verified 08/02/24 07:41 Opioid HPI Opioid Management Most Recent Opioid Data: Last Pain Scale 6 Today, 07:41 Last ORT Total Score 2 03/29/24, 14:53 Last ORT Risk Category Low Risk 03/29/24, 14:53 [facility] Medical History (Updated 08/02/24 @ 11:23 by Jason Damon MD) Hypoglycemia ?E16.2 - Hypoglycemia, unspecified (ICD-10) Gastroenteritis ?K52.9 - Noninfective gastroenteritis and colitis, unspecified (ICD-10) Feeding by G-tube ?Z93.1 - Gastrostomy status (ICD-10) Abdominal pain ?R10.9 - Unspecified abdominal pain (ICD-10) Small bowel intussusception ?K56.1 - Intussusception (ICD-10) Nausea and vomiting ?R11.2 - Nausea with vomiting, unspecified (ICD-10) Flank pain ?R10.9 - Unspecified abdominal pain (ICD-10) Abdominal pain ?R10.9 - Unspecified abdominal pain (ICD-10) Acute abdomen ?R10.0 - Acute abdomen (ICD-10) Intractable nausea and vomiting ?R11.2 - Nausea with vomiting, unspecified (ICD-10) Intractable abdominal pain ?R10.9 - Unspecified abdominal pain (ICD-10) Depression ?F32.A - Depression, unspecified (ICD-10) Asthma ?J45.909 - Unspecified asthma, uncomplicated (ICD-10) Dyspareunia Pelvic pain ?R10.2 - Pelvic and perineal pain (ICD-10) Ovarian cyst ?N83.209 - Unspecified ovarian cyst, unspecified side (ICD-10) PONV (postoperative nausea and vomiting) ?R11.2 - Nausea with vomiting, unspecified (ICD-10) ?Z98.890 - Other specified postprocedural states (ICD-10) PCOS (polycystic ovarian syndrome) ?E28.2 - Polycystic ovarian syndrome (ICD-10) Hypothyroidism (acquired) ?E03.9 - Hypothyroidism, unspecified (ICD-10) Anxiety ?F41.9 - Anxiety disorder, unspecified (ICD-10) GERD (gastroesophageal reflux disease) ?K21.9 - Gastro-esophageal reflux disease without esophagitis (ICD-10) Sleep apnea ?G47.30 - Sleep apnea, unspecified (ICD-10) Anemia ?D64.9 - Anemia, unspecified (ICD-10) Fibromyalgia ?M79.7 - Fibromyalgia (ICD-10) Syncope (07/07/13) ?R55 - Syncope and collapse (ICD-10) Shingles ?B02.9 - Zoster without complications (ICD-10) Headache ?R51.9 - Headache, unspecified (ICD-10) Migraine ?G43.909 - Migraine, unspecified, not intractable, without status migrainosus (ICD-10) Mechanical ileus (01/31/20) ?K56.609 - Unspecified intestinal obstruction, unspecified as to partial versus complete obstruction (ICD-10) COVID-19 (~02/2020) ?U07.1 - COVID-19 (ICD-10) Kidney stones ?N20.0 - Calculus of kidney (ICD-10) Surgical History S/P percutaneous endoscopic gastrostomy (PEG) tube placement ?Z93.1 - Gastrostomy status (ICD-10) 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 - Celiac artery compression syndrome (ICD-10) H/O shoulder surgery (2022) ?Z98.890 - Other specified postprocedural states (ICD-10) History of hip surgery ?Z98.890 - Other specified postprocedural states (ICD-10) S/P right knee arthroscopy ?Z98.890 - Other specified postprocedural states (ICD-10) S/P left knee arthroscopy ?Z98.890 - Other specified postprocedural states (ICD-10) Hx of tonsillectomy ?Z90.89 - Acquired absence of other organs (ICD-10) History of thoracic surgery (~2021) ?Z98.890 - Other specified postprocedural states (ICD-10) History of esophagogastroduodenoscopy (EGD) (10/04/13) ?Z98.890 - Other specified postprocedural states (ICD-10) History of cholecystectomy (10/06/13) ?Z90.49 - Acquired absence of other specified parts of digestive tract (ICD-10) Delivery by section (~2016) Delivery by section (01/17/18) H/O colonoscopy (~2018) ?Z98.890 - Other specified postprocedural states (ICD-10) S/P right knee arthroscopy (07/21/18) ?Z98.890 - Other specified postprocedural states (ICD-10) Delivery by section (06/19/19) History of appendectomy (09/25/19) ?Z90.49 - Acquired absence of other specified parts of digestive tract (ICD-10) H/O laparoscopy (11/10/19) ?Z98.890 - Other specified postprocedural states (ICD-10) History of liver biopsy (~04/2020) ?Z98.890 - Other specified postprocedural states (ICD-10) H/O laparoscopy (07/18/20) ?Z98.890 - Other specified postprocedural states (ICD-10) H/O arthroscopy of right knee (08/07/20) ?Z98.890 - Other specified postprocedural states (ICD-10) S/P laparoscopic sleeve gastrectomy (09/03/20) ?Z98.84 - Bariatric surgery status (ICD-10) H/O: hysterectomy (11/12/20) ?Z90.710 - Acquired absence of both cervix and uterus (ICD-10) History of hernia repair (03/20/21) ?Z98.890 - Other specified postprocedural states (ICD-10) ?Z87.19 - Personal history of other diseases of the digestive system (ICD-10) Family History (Updated 06/14/23 @ 16:56 by Marsha Du) Other Family history of cancer Family history of diabetes mellitus Family history of hypertension Family history of myocardial infarction PONV (postoperative nausea and vomiting) Social History (Updated 06/14/23 @ 16:57 by Marsha Du) Within the past year, how often did you have a drink containing alcohol: never Score interpretation: A score less than 3 is consistent with normal alcohol consumption. Smoking status: Never smoker Non-prescribed substance use: denies use Highest level of school completed/degree received: Master's degree Are you now , , , , never or living with a partner: In a typical week, how many times do you talk on the telephone with family, friends, or neighbors: 3 or more times per week How often do you get together with friends or relatives: twice per week How often do you attend zoroastrianism or pentecostal services: 4 or more times per year Do you belong to any clubs or organizations such as zoroastrianism groups unions, fraternal or athletic groups, or school groups: no Total score: 3 Score interpretation: A score of greater than or equal to 2 indicates the lowest level of social isolation. Little interest or pleasure in doing things: not at all Feeling down, depressed, or hopeless: not at all Feel stressed/tense/nervous/anxious/difficulty sleeping: to some extent Do you think of yourself as: straight/heterosexual Gender Identity: female Exam Constitutional Vital Signs, click to edit/add: Last Vital Signs Temp 98.1 F 08/02/24 07:41 Pulse 85 08/02/24 11:37 Resp 16 08/02/24 11:37 BP 118/69 08/02/24 11:37 Pulse Ox 97 08/02/24 11:37 O2 Del Method Room Air 08/02/24 07:41 Course Vital Signs Vital signs: Vital Signs Temperature 98.1 F 08/02/24 07:41 Pulse Rate 83 08/02/24 07:41 Respiratory Rate 20 08/02/24 07:41 Blood Pressure 127/84 08/02/24 07:41 Pulse Oximetry 98 08/02/24 07:41 Oxygen Delivery Method Room Air 08/02/24 07:41 Temperature 98.1 F 08/02/24 07:41 Pulse Rate 85 08/02/24 11:37 Respiratory Rate 16 08/02/24 11:37 Blood Pressure 118/69 08/02/24 11:37 Pulse Oximetry 97 08/02/24 11:37 Oxygen Delivery Method Room Air 08/02/24 07:41 Medical Decision Making [facility] Narrative Medical decision making narrative: Patient seen and examined: Patient will have IV, lab work, medications given. Patient's port has been accessed. Differential diagnosis includes but is not limited to: Abdominal pain, nausea, vomiting, diarrhea, gastritis, MARSHAL, UTI, pyelonephritis, biliary colic, Diagnostics and management: Patient will have laboratory studies Relevant laboratory interpretation: Patient has no elevated white blood cells, absolute neutrophils 83%, no bands, troponin less than 4. Trace bacteria. negative Radiological studies: Please see the formal radiological report. Patient has a air-fluid level, nonspecific bowel gas, no obvious signs of ileus, obstruction. A report of the x-ray was given to her, and we discussed the reading of the x-ray. Reevaluation: When I evaluated patient several hours after she has been here, patient felt much better after 1 L of IV fluid, she is tolerating ice chips. Patient's abdominal cramping. Patient was given Toradol and Bentyl. Patient's urine shows no significant findings. 1135 patient was stating that her nausea was returning, along with still having abdominal cramping. Patient's abdomen is still nonspecific, no peritoneal signs. Patient has no surgical abdomen. No severe pain. No rebound. No rigidity. Patient was given Zofran, Compazine and Tylenol. No acute indication for narcotics. Patient was educated on this. Shared decision making: I discussed with the patient the necessary laboratory findings and radiological findings. Social barriers to healthcare: There are no food insecurities, there is no issue with transportation, there are no insurance barriers. Disposition: I discussed with the patient will be sent home with refill of her Zofran ODT and also given Phenergan suppositories. Patient does have Compazine at home that works well for her. Patient was thankful for the second liter of IV fluid. Patient will follow-up with PCP and GI specialist at [facility]. No question at discharge Lab Data Labs: Lab Results 08/02/24 08/02/24 08/02/24 Range/Units 08:00 08:00 10:15 WBC 9.1 (4.0-11.0) 10^3/uL RBC 3.85 L (4.20-5.40) 10^6/uL Hgb 12.4 (12.0-16.0) g/dL Hct 36.1 (36.0-48.0) % MCV 93.8 (81.0-99.0) fL MCH 32.2 (26.7-34.0) pg MCHC 34.3 (29.9-35.2) g/dL RDW 12.6 (11.0-15.0) % Plt Count 246 (150-450) 10^3/uL MPV 10.4 (9.5-13.5) fL Neut % (Auto) 83.0 H (43.0-75.0) % Lymph % (Auto) 12.7 L (20.5-60.0) % [place] % (Auto) 3.4 (1.7-12.0) % Eos % (Auto) 0.4 L (0.9-7.0) % Baso % (Auto) 0.3 (0.2-2.0) % Neut # (Auto) 7.5 H (1.4-6.5) 10^3/uL Lymph # (Auto) 1.2 (1.2-3.8) 10^3/uL [place] # (Auto) 0.3 (0.3-0.8) 10^3/uL Eos # (Auto) 0.0 (0.0-0.7) 10^3/uL Baso # (Auto) 0.0 (0.0-0.1) 10^3/uL Abs Immat Gran (auto) 0.02 (0.00-0.03) 10^3/uL Imm/Tot Granulo (auto) 0.2 (0.0-0.5) % Sodium 141 (136-145) mmol/L Potassium 3.6 (3.5-5.1) mmol/L Chloride 103 (98-107) mmol/L Carbon Dioxide 26.3 (21.0-32.0) mmol/L Anion Gap 15.3 BUN 11.0 (7.0-18.0) mg/dL Creatinine 0.72 (0.55-1.02) mg/dL Est GFR ( Amer) >60 (>=60 mL/min/1.73m^2) Est GFR (Non-Af Amer) >60 (>=60 mL/min/1.73m^2) BUN/Creatinine Ratio 15.3 Glucose 87 (74-106) mg/dL Lactate 2.2 H* (0.4-2.0) mmol/L Calcium 8.5 (8.5-10.1) mg/dL Total Bilirubin 0.4 (0.2-1.0) mg/dL AST 26 (15-37) U/L ALT 24 (14-59) U/L Alkaline Phosphatase 60 (46-116) U/L Troponin I High Sens <4.0 L (4.0-51.3) pg/mL Total Protein 6.6 (6.4-8.2) g/dL Albumin 3.6 (3.4-5.0) g/dL Globulin 3.0 g/dL Albumin/Globulin Ratio 1.2 Lipase 66.0 67.0 (16.0-77.0) U/L Urine Color Lt. yellow (YELLOW) Urine Clarity Clear (CLEAR) Urine pH 6.5 (5.0-9.0) Ur Specific [place] <=1.005 A (1.005-1.025) Urine Protein Negative (NEG/TRACE) mg/dL Urine Glucose (UA) Negative (NEGATIVE) mg/dL Urine Ketones Negative (NEGATIVE) mg/dL Urine Occult Blood Negative (NEGATIVE) Urine Nitrite Negative (NEGATIVE) Urine Bilirubin Negative (NEGATIVE) Urine Urobilinogen 0.2 (0.2-1.0) EU/dL Ur Leukocyte Esterase Negative (NEGATIVE) Urine RBC None seen (0-2) #/HPF Urine WBC None seen (NONE SEEN) #/HPF Ur Squamous Epith Cells Few A (NONE/RARE) #/LPF Urine Crystals None seen (None Seen) #/HPF Urine Bacteria Trace A (NONE SEEN) #/HPF Urine Casts None seen (NONE SEEN) #/LPF Urine Mucus None seen (NONE SEEN) Ur Culture Indicated? No Urine HCG, Qual Negative (NEGATIVE) 08/02/24 Range/Units 11:03 WBC (4.0-11.0) 10^3/uL RBC (4.20-5.40) 10^6/uL Hgb (12.0-16.0) g/dL Hct (36.0-48.0) % MCV (81.0-99.0) fL MCH (26.7-34.0) pg MCHC (29.9-35.2) g/dL RDW (11.0-15.0) % Plt Count (150-450) 10^3/uL MPV (9.5-13.5) fL Neut % (Auto) (43.0-75.0) % Lymph % (Auto) (20.5-60.0) % [place] % (Auto) (1.7-12.0) % Eos % (Auto) (0.9-7.0) % Baso % (Auto) (0.2-2.0) % Neut # (Auto) (1.4-6.5) 10^3/uL Lymph # (Auto) (1.2-3.8) 10^3/uL [place] # (Auto) (0.3-0.8) 10^3/uL Eos # (Auto) (0.0-0.7) 10^3/uL Baso # (Auto) (0.0-0.1) 10^3/uL Abs Immat Gran (auto) (0.00-0.03) 10^3/uL Imm/Tot Granulo (auto) (0.0-0.5) % Sodium (136-145) mmol/L Potassium (3.5-5.1) mmol/L Chloride (98-107) mmol/L Carbon Dioxide (21.0-32.0) mmol/L Anion Gap BUN (7.0-18.0) mg/dL Creatinine (0.55-1.02) mg/dL Est GFR ( Amer) (>=60 mL/min/1.73m^2) Est GFR (Non-Af Amer) (>=60 mL/min/1.73m^2) BUN/Creatinine Ratio Glucose (74-106) mg/dL Lactate 1.9 (0.4-2.0) mmol/L Calcium (8.5-10.1) mg/dL Total Bilirubin (0.2-1.0) mg/dL AST (15-37) U/L ALT (14-59) U/L Alkaline Phosphatase (46-116) U/L Troponin I High Sens (4.0-51.3) pg/mL Total Protein (6.4-8.2) g/dL Albumin (3.4-5.0) g/dL Globulin g/dL Albumin/Globulin Ratio Lipase (16.0-77.0) U/L Urine Color (YELLOW) Urine Clarity (CLEAR) Urine pH (5.0-9.0) Ur Specific [place] (1.005-1.025) Urine Protein (NEG/TRACE) mg/dL Urine Glucose (UA) (NEGATIVE) mg/dL Urine Ketones (NEGATIVE) mg/dL Urine Occult Blood (NEGATIVE) Urine Nitrite (NEGATIVE) Urine Bilirubin (NEGATIVE) Urine Urobilinogen (0.2-1.0) EU/dL Ur Leukocyte Esterase (NEGATIVE) Urine RBC (0-2) #/HPF Urine WBC (NONE SEEN) #/HPF Ur Squamous Epith Cells (NONE/RARE) #/LPF Urine Crystals (None Seen) #/HPF Urine Bacteria (NONE SEEN) #/HPF Urine Casts (NONE SEEN) #/LPF Urine Mucus (NONE SEEN) Ur Culture Indicated? Urine HCG, Qual (NEGATIVE) Discharge Plan Discharge Chief Complaint: Abdominal Pain Clinical Impression: Abdominal pain, Nausea & vomiting, Mild dehydration Patient Disposition: Home, Self-Care Time of Disposition Decision: 11:23 Condition: Good Prescriptions / Home Meds: New promethazine 25 mg suppository 25 mg WA Q6H PRN (Reason: nausea and vomiting) Qty: 6 0RF ondansetron 4 mg tablet,disintegrating 4 mg PO Q4H PRN (Reason: nausea and vomiting) 3 Days Qty: 6 0RF No Action (DME) blood-glucose meter [Fore[employer] Ultra2 Meter] Misc MISCELLANEOUS (DME) OneTouch Ultra Test Strip MISCELLANEOUS fentanyl 25 mcg/hr patch 72 hour 1 patch transdermal Q72H (DME) FreeStyle Hunter 3 Plus Sensor Device MISCELLANEOUS hydrocodone-acetaminophen 5-325 mg tablet 1 tab PO Q6H PRN (Reason: pain) (DME) lancets [Olive Medical CorporationTouch Delica Plus Lancet] 30 gauge [facility] MISCELLANEOUS methocarbamol 500 mg tablet 750 mg PO Q6H omeprazole 40 mg capsule,delayed release(DR/EC) 40 mg PO BID (DME) pen needle, diabetic [BD Stefania 2nd Gen Pen Needle] 32 gauge x 5/32 needle MISCELLANEOUS prucalopride 2 mg tablet 2 mg PO DAILY trazodone 100 mg tablet 100 mg PO .qhs Nutrin 45 ml feeding tube Q1H Rx Instructions: tube feed that runs at bedtime at 45ml/hr. continuous drip hydroxyzine HCl 25 mg tablet 25 mg PO BID PRN (Reason: anxiety) liothyronine 5 mcg tablet 5 mcg PO QDAY topiramate 100 mg tablet 100 mg PO BID buspirone 10 mg tablet 10 mg PO TID metoclopramide HCl 10 mg tablet 10 mg PO AC PRN (Reason: nausea and vomiting) Linzess 290 mcg capsule 290 mcg PO DAILY albuterol sulfate 90 mcg/actuation HFA aerosol inhaler 2 puff INHALATION Q6H PRN (Reason: shortness of breath or wheezing) levothyroxine 75 mcg tablet 75 mcg PO DAILY escitalopram oxalate 20 mg tablet 20 mg PO DAILY mirtazapine 30 mg tablet 45 mg PO .HS prochlorperazine maleate [Compazine] 10 mg tablet 10 mg PO Q6H PRN (Reason: nausea and vomiting) Qty: 60 3RF tramadol 50 mg tablet 50 mg PO Q6H PRN (Reason: pain) Qty: 28 0RF acetaminophen [Pain Relief (acetaminophen)] 325 mg tablet 650 mg PO Q4H PRN (Reason: pain) dexamethasone 2 mg tablet 3 mg PO DAILY ergocalciferol (vitamin D2) 1,250 mcg (50,000 unit) capsule 1,250 mcg PO .Q7 Print Language: Bolivian Instructions: Acute Nausea and Vomiting (ED), Abdominal Pain (ED) Additional Instructions: Increase fluids at home, Gatorade, Powerade, water. Additional Zofran has been prescribed to you, along with Phenergan suppositories if needed. Do not use Phenergan suppositories within a 4-hour window of taking your Compazine Follow-up with your [facility] specialist and your PCP as needed. Referrals: Thomas Alas MD [Primary Care Provider, Family Practice] - 1 week
[2024-08-02] MEDS: ONDANSETRON PF 4 MG/2 ML VIAL IV ×2 (08:29→11:55)
[2024-08-02] MEDS: 0.9 % SODIUM CHLORIDE 1,000 ML 1000 ML IV ×2 (08:29→11:26)
[2024-08-02] MEDS: DIPHENHYDRAMINE HCL 50 MG/ML VIAL IVP (08:29)
[2024-08-02] MEDS: METOCLOPRAMIDE HCL 10 MG/2 ML VIAL IVP (08:29)
[2024-08-02 08:33] LABS: Alanine Aminotransferase 24 U/L (14-59); Albumin Globulin Ratio 1.2; Albumin Level 3.6 g/dL (3.4-5.0); Alkaline Phosphatase 60 U/L (46-116); Anion Gap 15.3; Aspartate Amino Transferase 26 U/L (15-37); BUN Creatinine Ratio 15.3; Bilirubin Total 0.4 mg/dL (0.2-1.0); Calcium 8.5 mg/dL (8.5-10.1); Carbon Dioxide 26.3 mmol/L (21.0-32.0); Chloride 103 mmol/L (98-107); Estimated GFR (African America >60 (>=60 mL/min/1.73m^2); Estimated GFR (Non-African Ame >60 (>=60 mL/min/1.73m^2); Glucose 87 mg/dL (74-106); Potassium 3.6 mmol/L (3.5-5.1); Sodium 141 mmol/L (136-145); Total Protein 6.6 g/dL (6.4-8.2)
[2024-08-02 08:34] LABS: Troponin I High Sensitivity <4.0 pg/mL (4.0-51.3)
[2024-08-02 08:36] LABS: Lactate/Lactic Acid 2.2 mmol/L (0.4-2.0)
[2024-08-02] MEDS: DICYCLOMINE HCL 20 MG/2 ML VIAL IM (10:20)
[2024-08-02] MEDS: KETOROLAC TROMETHAMINE 30 MG/ML VIAL 15 MG IM (10:20)
[2024-08-02 10:35] LABS: Bilirubin Urine NEGATIVE (NEGATIVE); Blood Urine NEGATIVE (NEGATIVE); Clarity Urine CLEAR (CLEAR); Color Urine LT. YELLOW (YELLOW); Glucose Urine UA NEGATIVE (NEGATIVE); Ketones Urine NEGATIVE (NEGATIVE); Leukocyte Esterase Urine NEGATIVE (NEGATIVE); Nitrite Urine NEGATIVE (NEGATIVE); Protein Urine NEGATIVE (NEG/TRACE); Specific Gravity Urine <=1.005 (1.005-1.025); Urobilinogen Urine 0.2 EU/dL (0.2-1.0); pH Urine 6.5 (5.0-9.0)
[2024-08-02 10:37] LABS: HCG Qualitative Urine* NEGATIVE (NEGATIVE); Internal Control Within Normal Limits
[2024-08-02 10:44] LABS: Bacteria Urine TRACE #/HPF (NONE SEEN); Cast Seen? NONE SEEN #/LPF (NONE SEEN); Crystals Seen? None Seen #/HPF (None Seen); Mucus Urine NONE SEEN (NONE SEEN); RBC Urine NONE SEEN #/HPF (0-2); Squamous Epithelial Cell Urine FEW #/LPF (NONE/RARE); Urine Culture Indicated NO; WBC Urine NONE SEEN #/HPF (NONE SEEN)
[2024-08-02 11:36] LABS: Lactate/Lactic Acid 1.9 mmol/L (0.4-2.0)
[2024-08-02 11:37] VITALS: BP 118/69; PULSE 85; O2SAT 97
[2024-08-02] MEDS: ACETAMINOPHEN 500 MG TABLET PO (11:55)
[2024-08-02] MEDS: PROCHLORPERAZINE 10 MG/2 ML VIAL 5 MG IV (11:56)
[2024-08-02 12:30] VITALS: BP 122/84; PULSE 88; O2SAT 98
== END 2024-08-02 12:31 | disposition home or self-care (01) ==
PROVIDERS: Emergency Provider Emergency Medicine; PCP Family Medicine
DX: R10.84 Generalized abdominal pain (principal); R11.2 Nausea with vomiting, unspecified; E86.0 Dehydration; R10.31 Right lower quadrant pain; Z93.1 Gastrostomy status; Z95.828 Presence of other vascular implants and grafts
CPT/HCPCS: 36415; 74022; 80053; 81001; 83605; 83690; 84484; 84703; 85025; 96361; 96372; 96374; 96375; 96376; 99285; J0500; J0780; J1200; J1885; J2405; J2765

== ENCOUNTER 2024-08-10 13:32 | Outpatient (OUT) | payer MEDICAID, SELFPAY ==
[2024-08-10 14:10] LABS: Basophils Percent Auto 0.2 % (0.2-2.0); Eosinophils Percent Auto 0.1 % (0.9-7.0); Hematocrit 29.5 % (36.0-48.0); Hemoglobin 10.3 g/dL (12.0-16.0); Immature Granulocytes Abs Auto 0.13 10^3/uL (0.00-0.03); Immature Granulocytes Pct Auto 1.4 % (0.0-0.5); Lymphocytes Percent Auto 10.6 % (20.5-60.0); Mean Corpuscular HGB Conc 34.9 g/dL (29.9-35.2); Mean Corpuscular Hemoglobin 32.1 pg (26.7-34.0); Mean Corpuscular Volume 91.9 fL (81.0-99.0); Mean Platelet Volume 11.5 fL (9.5-13.5); Monocytes Absolute Auto 0.4 10^3/uL (0.3-0.8); Monocytes Percent Auto 4.5 % (1.7-12.0); Neutrophils Absolute Auto 7.7 10^3/uL (1.4-6.5); Neutrophils Percent Auto 83.2 % (43.0-75.0); Platelet Count 123 10^3/uL (150-450); Red Blood Count 3.21 10^6/uL (4.20-5.40); Red Cell Distribution Width 13.4 % (11.0-15.0); White Blood Count 9.3 10^3/uL (4.0-11.0)
== END 2024-08-10 13:33 | disposition home or self-care (01) ==
LOC: LAB 13:36
PROVIDERS: PCP Family Medicine; Visit Provider Family Medicine
DX: D72.829 Elevated white blood cell count, unspecified (principal)
CPT/HCPCS: 85025

== ENCOUNTER 2024-08-15 11:35 | Emergency (ER) | payer MEDICAID, SELFPAY ==
[2024-08-15] VITALS (17 sets, daily range): BP systolic 115–130; BP diastolic 65–89; PULSE 70–92; TEMP 36.4; O2SAT 98–100; BMI 30.3
--- NOTE | 2024-08-15 12:33 | ECG_ITS ---
The [facility] Test Date: 2024-08-15 Pat Name: JUAN KONG Department: Room: - Gender: Female Home Health Nurse: : 1990 Requested By: [id number] Order Number: [id number] Reading MD: JAMES HODGES M.D. Measurements Intervals [place] Rate: 82 P: 45 [place]: 142 QRS: 75 QRSD: 84 T: 44 QT: 402 QTc: 440 Interpretive Statements 1100 Sinus rhythm 9110 normal ECG Compared to ECG 06/21/2024 11:24:35 No significant changes Electronically Signed On 08-16-2024 6:37:55 EDT by JAMES HODGES M.D.
[2024-08-15] MEDS: 0.9 % SODIUM CHLORIDE 1,000 ML 1000 ML IV (13:14)
--- NOTE | 2024-08-15 13:14 | ED_ITS ---
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 She endorses since yesterday she has had chills and bodyaches with symptoms of nausea/vomiting/diarrhea that began yesterday evening. No fevers. She does endorse some lower back and possible flank pain. She denies any abdominal pain. She denies any other significant medical or surgical history otherwise. She states she is followed out of [facility] and last abdominal surgery was an exploratory lap 1 year prior. Has taken Tylenol and ibuprofen with some improvement in chills and bodyaches. Related Data Home Medications �Medication �Instructions �Recorded �Confirmed hydroxyzine HCl 25 mg tablet 25 mg PO BID PRN anxiety 09/17/22 06/21/24 liothyronine 5 mcg tablet 5 mcg PO QDAY 09/17/2206/21 topiramate 100 mg tablet 100 mg PO BID 09/17/2206/21 buspirone 10 mg tablet 10 mg PO TID 06/14/23 linaclotide 290 mcg capsule 290 mcg PO DAILY 06/14/23 06/21/24 (Linzess) metoclopramide HCl 10 mg tablet 10 mg PO AC PRN nausea and vomiting 06/14/23 06/21/24 albuterol sulfate 90 mcg/actuation 2 puff inhalation Q 6H PRN 06/15/23 06/21/24 aerosol inhaler shortness of breath or wheez ing escitalopram oxalate 20 mg tablet 20 mg PO DAILY 06/1406/21/24 levothyroxine 75 mcg tablet 75 mcg PO DAILY 06/15/23 0 06/21/24 mirtazapine 30 mg tablet 45 mg PO .HS 06/15/23 acetaminophen 325 mg tablet (Pain 650 mg PO Q4H PRN pa in 06/24/23 06/21/24 Relief (acetaminophen)) Nutrin 45 ml feeding tube Q1H 03/2906/21/24 blood sugar diagnostic ([facility] 03/29/24 03/29/24 Ultra Test strips) blood-glucose meter ([facility] 03/29/24 03/29/24 Ultra2 Meter) blood-glucose sensor (FreeStyle 03/29/24 03/29/24 Hunter 3 Plus Sensor device) fentanyl 25 mcg/hr transdermal 1 patch transdermal Q72 H 03/29/24 06/21/24 patch hydrocodone 5 mg-acetaminophen 325 1 tab PO Q6H PRN pa in 03/29/24 06/21/24 mg tablet lancets 30 gauge ([facility] 03/29/24 03/29/24 Plus Lancet) methocarbamol 500 mg tablet 750 mg PO Q6H 03/29/2409/08 omeprazole 40 mg capsule,delayed 40 mg PO BID 03/29/24 06/21/24 release pen needle, diabetic 32 gauge x 03/29/24 03/29/24 (BD Stefania 2nd Gen Pen Needle) prucalopride 2 mg tablet 2 mg PO DAILY 03/29/2406/21 trazodone 100 mg tablet 100 mg PO .qhs 03/29/2409/08 dexamethasone 2 mg tablet 3 mg PO DAILY 06/21/2406/21 ergocalciferol (vitamin D2) 1,250 1,250 mcg PO .Q7 09/0806/21/24 mcg (50,000 unit) capsule Previous Rx's �Medication �Instructions �Recorded prochlorperazine maleate 10 mg 10 mg PO Q6H PRN nausea and 06/16/23 tablet (Compazine) vomiting #60 tabs tramadol 50 mg tablet 50 mg PO Q6H PRN pain #28 ta bs 06/16/23 ondansetron 4 mg disintegrating 4 mg PO Q4H PRN nausea and 08/02/24 tablet vomiting 3 days #6 tabs promethazine 25 mg rectal 25 mg [place] Q6H PRN nausea and 08/02/24 suppository vomiting #6 ea Allergies Allergy/AdvReac Type Severity Reaction Status Date / Time adhesive Allergy Rash Verified 08/02/24 07:41 NSAIDS (Non-Steroidal Allergy intolerance Verified 08/02/24 07:41 Anti-Inflamma codeine AdvReac Vomiting Verified 08/02/24 07:41 Opioid HPI Opioid Management Most Recent Opioid Data: Last Pain Scale 6 Today, 13:35 Last MAR Pain Assessment Today, 13:35 Last ORT Total Score 2 03/29/24, 14:53 Last ORT Risk Category Low Risk 03/29/24, 14:53 Review of Systems ROS Status of ROS 10 or more systems reviewed and unremark able except as noted in history and below [facility] Medical History (Updated 08/15/24 @ 14:50 by Jemma Romeo NP) Hypoglycemia �E16.2 - Hypoglycemia, unspecified (ICD-10) Gastroenteritis �K52.9 - Noninfective gastroenteritis and colitis, unspecified (ICD-10) Feeding by G-tube �Z93.1 - Gastrostomy status (ICD-10) Abdominal pain �R10.9 - Unspecified abdominal pain (ICD-10) Small bowel intussusception �K56.1 - Intussusception (ICD-10) Nausea and vomiting �R11.2 - Nausea with vomiting, unspecified (ICD-10) Flank pain �R10.9 - Unspecified abdominal pain (ICD-10) Abdominal pain �R10.9 - Unspecified abdominal pain (ICD-10) Acute abdomen �R10.0 - Acute abdomen (ICD-10) Intractable nausea and vomiting �R11.2 - Nausea with vomiting, unspecified (ICD-10) Intractable abdominal pain �R10.9 - Unspecified abdominal pain (ICD-10) Depression �F32.A - Depression, unspecified (ICD-10) Asthma �J45.909 - Unspecified asthma, uncomplicated (ICD-10) Dyspareunia Pelvic pain �R10.2 - Pelvic and perineal pain (ICD-10) Ovarian cyst �N83.209 - Unspecified ovarian cyst, unspecified side (ICD-10) PONV (postoperative nausea and vomiting) �R11.2 - Nausea with vomiting, unspecified (ICD-10) �Z98.890 - Other specified postprocedural states (ICD-10) PCOS (polycystic ovarian syndrome) �E28.2 - Polycystic ovarian syndrome (ICD-10) Hypothyroidism (acquired) �E03.9 - Hypothyroidism, unspecified (ICD-10) Anxiety �F41.9 - Anxiety disorder, unspecified (ICD-10) GERD (gastroesophageal reflux disease) �K21.9 - Gastro-esophageal reflux disease without esophagitis (ICD-10) Sleep apnea �G47.30 - Sleep apnea, unspecified (ICD-10) Anemia �D64.9 - Anemia, unspecified (ICD-10) Fibromyalgia �M79.7 - Fibromyalgia (ICD-10) Syncope (07/07/13) �R55 - Syncope and collapse (ICD-10) Shingles �B02.9 - Zoster without complications (ICD-10) Headache �R51.9 - Headache, unspecified (ICD-10) Migraine �G43.909 - Migraine, unspecified, not intractable, without status migrainosus (ICD-10) Mechanical ileus (01/31/20) �K56.609 - Unspecified intestinal obstruction, unspecified as to partial versus complete obstruction (ICD-10) COVID-19 (~02/2020) �U07.1 - COVID-19 (ICD-10) Kidney stones �N20.0 - Calculus of kidney (ICD-10) Surgical History S/P percutaneous endoscopic gastrostomy (PEG) tube placement �Z93.1 - Gastrostomy status (ICD-10) Median arcuate ligament syndrome �I77.4 - Celiac artery compression syndrome (ICD-10) H/O shoulder surgery (2022) �Z98.890 - Other specified postprocedural states (ICD-10) History of hip surgery �Z98.890 - Other specified postprocedural states (ICD-10) S/P right knee arthroscopy �Z98.890 - Other specified postprocedural states (ICD-10) S/P left knee arthroscopy �Z98.890 - Other specified postprocedural states (ICD-10) Hx of tonsillectomy �Z90.89 - Acquired absence of other organs (ICD-10) History of thoracic surgery (~2021) �Z98.890 - Other specified postprocedural states (ICD-10) History of esophagogastroduodenoscopy (EGD) (10/04/13) �Z98.890 - Other specified postprocedural states (ICD-10) History of cholecystectomy (10/06/13) �Z90.49 - Acquired absence of other specified parts of digestive tract (ICD- 10) Delivery by section (~2016) Delivery by section (01/17/18) H/O colonoscopy (~2018) �Z98.890 - Other specified postprocedural states (ICD-10) S/P right knee arthroscopy (07/21/18) �Z98.890 - Other specified postprocedural states (ICD-10) Delivery by section (06/19/19) History of appendectomy (09/25/19) �Z90.49 - Acquired absence of other specified parts of digestive tract (ICD- 10) H/O laparoscopy (11/10/19) �Z98.890 - Other specified postprocedural states (ICD-10) History of liver biopsy (~04/2020) �Z98.890 - Other specified postprocedural states (ICD-10) H/O laparoscopy (07/18/20) �Z98.890 - Other specified postprocedural states (ICD-10) H/O arthroscopy of right knee (08/07/20) �Z98.890 - Other specified postprocedural states (ICD-10) S/P laparoscopic sleeve gastrectomy (09/03/20) �Z98.84 - Bariatric surgery status (ICD-10) H/O: hysterectomy (11/12/20) �Z90.710 - Acquired absence of both cervix and uterus (ICD-10) History of hernia repair (03/20/21) �Z98.890 - Other specified postprocedural states (ICD-10) �Z87.19 - Personal history of other diseases of the digestive system (ICD-10) Family History (Updated 06/14/23 @ 16:56 by Marsha Du) Other Family history of cancer Family history of diabetes mellitus Family history of hypertension Family history of myocardial infarction PONV (postoperative nausea and vomiting) Social History (Updated 06/14/23 @ 16:57 by Marsha Du) Within the past year, how often did you have a drink containing alcohol: never Score interpretation: A score less than 3 is consistent with normal alcohol consumption. Smoking status: Never smoker Non-prescribed substance use: denies use Highest level of school completed/degree received: Master's degree Are you now , , , , never or living with a partner: In a typical week, how many times do you talk on the telephone with family, friends, or neighbors: 3 or more times per week How often do you get together with friends or relatives: twice per week How often do you attend sikh or samaritan services: 4 or more times per year Do you belong to any clubs or organizations such as sikh groups unions, fraternal or athletic groups, or school groups: no Total score: 3 Score interpretation: A score of greater than or equal to 2 indicates the lowest level of social isolation. Little interest or pleasure in doing things: not at all Feeling down, depressed, or hopeless: not at all Feel stressed/tense/nervous/anxious/difficulty sleeping: to some extent Do you think of yourself as: straight/heterosexual Gender Identity: female Exam Narrative Exam Narrative: Constituational: Awake/ alert, no apparent distress, well hydrated HENMT: normocephalic, external ears normal, moist oral mucous membranes and oropharynx normal Eyes: EOMI and conjunctivae normal Neck: ROM intact Chest: + Subclavian R central line without surrounding edema/edema/drainage, otherwise inspection of chest normal Respiratory: Normal respiratory effort, clear to auscultation bilaterally Cardio: regular rate and regular rhythm GI: soft to palpation and non-tender Back: nontender MSK: ROM intact, +NVI Skin: no rashes or petechiae Neuro: no focal deficits Psych: mental status grossly normal Constitutional Vital Signs, click to edit/add: Last Vital Signs Temp 97.6 F 08/15/24 11:45 Pulse 91 H 08/15/24 11:45 Resp 08/15/24 11:45 BP 130/89 08/15/24 11:45 Pulse Ox 100 08/15/24 11:45 O2 Del Method Room Air 08/15/24 11:45 Course Vital Signs Vital signs: Vital Signs Temperature 97.6 F 08/15/24 11:45 Pulse Rate 91 H 08/15/24 11:45 Respiratory Rate 18 08/15/24 11:45 Blood Pressure 130/89 08/15/24 11:45 Pulse Oximetry 100 08/15/24 11:45 Oxygen Delivery Method Room Air 08/15/24 11:45 Temperature 97.6 F 08/15/24 11:45 Pulse Rate 91 H 08/15/24 11:45 Respiratory Rate 18 08/15/24 11:45 Blood Pressure 130/89 08/15/24 11:45 Pulse Oximetry 100 08/15/24 11:45 Oxygen Delivery Method Room Air 08/15/24 11:45 Medical Decision Making [facility] Narrative Medical decision making narrative: Patient is a well-appearing 34-year-old female who presented to the emergency department today for evaluation of concerns for generally not feeling well. Initial examination vital signs overall stable. No acute abdominal findings on exam -> patient with history of MALS and TPN therapy. She overall appears euvolemic on exam. No obvious clinical evidence concerning for infectious processes such as URI. Historically patient did endorse some mild cough/cold symptoms. Chest x-ray is stable. Lactic 0.6. Otherwise showed mild leukocytosis with WBCs 12 otherwise no significant anemia or thrombocytopenia. Electrolytes including renal and hepatic function stable. Lipase. UA is negative for UTI. Ordered measures of IV fluids, Zofran, and Toradol and on reevaluation she reported an overall improvement in condition. Clinical impression possible viral illness, possible bacteremia -> cultures are pending however in absence of leukocytosis, endorgan failure, and patient has otherwise been hemodynamically stable will plan to discharge patient home with supportive measures and close outpatient follow-up with her primary care provider. Discussed symptoms of any worsening condition and strict when to return to ER precautions. Patient verbalized an understanding of this and is agreeable with the plan to be discharged home. Medical Records Medical records reviewed: Yes I reviewed the patient's medical records Lab Data Lab results reviewed: Yes I reviewed the patient's lab results Labs: Lab Results 08/15/24 08/15/24 Range/Units 12:56 14:00 WBC 12.8 H (4.0-11.0) 10^3/uL RBC 3.44 L (4.20-5.40) 10^6/uL Hgb 10.8 L (12.0-16.0) g/dL Hct 31.4 L (36.0-48.0) % MCV 91.3 (81.0-99.0) fL MCH 31.4 (26.7-34.0) pg MCHC 34.4 (29.9-35.2) g/dL RDW 13.7 (11.0-15.0) % Plt Count 260 (150-450) 10^3/uL MPV 10.0 (9.5-13.5) fL Neut % (Auto) 93.4 H (43.0-75.0) % Lymph % (Auto) 4.7 L (20.5-60.0) % [place] % (Auto) 1.2 L (1.7-12.0) % Eos % (Auto) 0.0 L (0.9-7.0) % Baso % (Auto) 0.2 (0.2-2.0) % Neut # (Auto) 11.9 H (1.4-6.5) 10^3/uL Lymph # (Auto) 0.6 L (1.2-3.8) 10^3/uL [place] # (Auto) 0.2 L (0.3-0.8) 10^3/uL Eos # (Auto) 0.0 (0.0-0.7) 10^3/uL Baso # (Auto) 0.0 (0.0-0.1) 10^3/uL Abs Immat Gran (auto) 0.06 H (0.00-0.03) 10^3/uL Imm/Tot Granulo (auto) 0.5 (0.0-0.5) % Sodium 137 (136-145) mmol/L Potassium 3.8 (3.5-5.1) mmol/L Chloride 102 (98-107) mmol/L Carbon Dioxide 23.5 (21.0-32.0) mmol/L Anion Gap 15.3 BUN 11.0 (7.0-18.0) mg/dL Creatinine 0.61 (0.55-1.02) mg/dL Est GFR ( Amer) >60 (>=60 mL/min/1.73m^2) Est GFR (Non-Af Amer) >60 (>=60 mL/min/1.73m^2) BUN/Creatinine Ratio 18.0 Glucose 115 H (74-106) mg/dL Lactate 0.6 (0.4-2.0) mmol/L Calcium 8.2 L (8.5-10.1) mg/dL Total Bilirubin 0.6 (0.2-1.0) mg/dL AST 27 (15-37) U/L ALT 17 (14-59) U/L Alkaline Phosphatase 114 (46-116) U/L Total Protein 6.2 L (6.4-8.2) g/dL Albumin 2.5 L (3.4-5.0) g/dL Globulin 3.7 g/dL Albumin/Globulin Ratio 0.7 Lipase 60.0 (16.0-77.0) U/L Urine Color Lt. yellow (YELLOW) Urine Clarity Clear (CLEAR) Urine pH 6.0 (5.0-9.0) Ur Specific [place] 1.010 (1.005-1.025) Urine Protein Negative (NEG/TRACE) mg/dL Urine Glucose (UA) Negative (NEGATIVE) mg/dL Urine Ketones 15 A (NEGATIVE) mg/dL Urine Occult Blood Negative (NEGATIVE) Urine Nitrite Negative (NEGATIVE) Urine Bilirubin Negative (NEGATIVE) Urine Urobilinogen 0.2 (0.2-1.0) EU/dL Ur Leukocyte Esterase Negative (NEGATIVE) Imaging Data Chest x-ray: Attestation: I have reviewed the pertinent imaging results. Radiologist's impression: ITS Impressions Chest X-Ray 08/15/24 13:58 IMPRESSION: LEFT MIDLUNG ATELECTASIS. NO CONSOLIDATION TO SUGGEST PNEUMONIA. Impression dictated by: Cornel Medel Jr., D.O. 08/15/2024 2:22 PM Dictation Location: [place] [address] Electronically authenticated by: [id number] Y Date: 08/15/2024 14:22 Discharge Plan Discharge Chief Complaint: Fever Clinical Impression: Viral illness Patient Disposition: Home, Self-Care Prescriptions / Home Meds: No Action (DME) blood-glucose meter [OneTouch Ultra2 Meter] Misc MISCELLANEOUS (DME) OneTouch Ultra Test Strip MISCELLANEOUS fentanyl 25 mcg/hr patch 72 hour 1 patch transdermal Q72H (DME) FreeStyle Hunter 3 Plus Sensor Device MISCELLANEOUS hydrocodone-acetaminophen 5-325 mg tablet 1 tab PO Q6H PRN (Reason: pain) (DME) lancets [OneTouch Delica Plus Lancet] 30 gauge misc MISCELLANEOUS methocarbamol 500 mg tablet 750 mg PO Q6H omeprazole 40 mg capsule,delayed release(DR/EC) 40 mg PO BID (DME) pen needle, diabetic [BD Stefania 2nd Gen Pen Needle] 32 gauge x 5/32 needle MISCELLANEOUS prucalopride 2 mg tablet 2 mg PO DAILY trazodone 100 mg tablet 100 mg PO .qhs Nutrin 45 ml feeding tube Q1H Rx Instructions: tube feed that runs at bedtime at 45ml/hr. continuous drip promethazine 25 mg suppository 25 mg WY Q6H PRN (Reason: nausea and vomiting) Qty: 6 0RF ondansetron 4 mg tablet,disintegrating 4 mg PO Q4H PRN (Reason: nausea and vomiting) 3 Days Qty: 6 0RF hydroxyzine HCl 25 mg tablet 25 mg PO BID PRN (Reason: anxiety) liothyronine 5 mcg tablet 5 mcg PO QDAY topiramate 100 mg tablet 100 mg PO BID buspirone 10 mg tablet 10 mg PO TID metoclopramide HCl 10 mg tablet 10 mg PO AC PRN (Reason: nausea and vomiting) Linzess 290 mcg capsule 290 mcg PO DAILY albuterol sulfate 90 mcg/actuation HFA aerosol inhaler 2 puff INHALATION Q6H PRN (Reason: shortness of breath or wheezing) levothyroxine 75 mcg tablet 75 mcg PO DAILY escitalopram oxalate 20 mg tablet 20 mg PO DAILY mirtazapine 30 mg tablet 45 mg PO .HS prochlorperazine maleate [Compazine] 10 mg tablet 10 mg PO Q6H PRN (Reason: nausea and vomiting) Qty: 60 3RF tramadol 50 mg tablet 50 mg PO Q6H PRN (Reason: pain) Qty: 28 0RF acetaminophen [Pain Relief (acetaminophen)] 325 mg tablet 650 mg PO Q4H PRN (Reason: pain) dexamethasone 2 mg tablet 3 mg PO DAILY ergocalciferol (vitamin D2) 1,250 mcg (50,000 unit) capsule 1,250 mcg PO .Q7 Print Language: Scottish Instructions: Viral Syndrome (ED) Additional Instructions: Continue with your IV fluids and TPN. May use [id number]-[id number] pain medication as needed. Primary care provider for reevaluation as discussed. Additionally follow-up with your GI specialist at [facility] for reevaluation as discussed. Referrals: Thomas Alas MD [Primary Care Provider, Family Practice] - 1 week
[2024-08-15 13:17] LABS: Hematocrit 31.4 % (36.0-48.0); Hemoglobin 10.8 g/dL (12.0-16.0); Immature Granulocytes Abs Auto 0.06 10^3/uL (0.00-0.03); Immature Granulocytes Pct Auto 0.5 % (0.0-0.5); Lymphocytes Absolute Auto 0.6 10^3/uL (1.2-3.8); Mean Corpuscular HGB Conc 34.4 g/dL (29.9-35.2); Mean Corpuscular Hemoglobin 31.4 pg (26.7-34.0); Mean Corpuscular Volume 91.3 fL (81.0-99.0); Platelet Count 260 10^3/uL (150-450); Red Blood Count 3.44 10^6/uL (4.20-5.40); White Blood Count 12.8 10^3/uL (4.0-11.0)
[2024-08-15] MEDS: KETOROLAC TROMETHAMINE 30 MG/ML VIAL IVP (13:35)
[2024-08-15 13:37] LABS: Alanine Aminotransferase 17 U/L (14-59); Albumin Globulin Ratio 0.7; Albumin Level 2.5 g/dL (3.4-5.0); Alkaline Phosphatase 114 U/L (46-116); Anion Gap 15.3; Aspartate Amino Transferase 27 U/L (15-37); Blood Urea Nitrogen 11.0 mg/dL (7.0-18.0); Calcium 8.2 mg/dL (8.5-10.1); Carbon Dioxide 23.5 mmol/L (21.0-32.0); Chloride 102 mmol/L (98-107); Estimated GFR (African America >60 (>=60 mL/min/1.73m^2); Estimated GFR (Non-African Ame >60 (>=60 mL/min/1.73m^2); Globulin 3.7 g/dL; Glucose 115 mg/dL (74-106); Potassium 3.8 mmol/L (3.5-5.1); Sodium 137 mmol/L (136-145); Total Protein 6.2 g/dL (6.4-8.2)
[2024-08-15 13:43] LABS: Lipase 60.0 U/L (16.0-77.0)
[2024-08-15 13:47] LABS: Lactate/Lactic Acid 0.6 mmol/L (0.4-2.0)
--- NOTE | 2024-08-15 13:58 | XR_ITS ---
The [address] [address] Patient Name: JUAN KONG MRN: [id number] date: 1990 Sex: F Assigned Patient Location: ER Current Patient Location: ER Accession/Order Number: [id number] Exam Date: 08/15/2024 14:21 Report Date: 08/15/2024 14:22 At the request of: DOMENICA GARDNER NP Procedure: XR chest 2V Chest 2 views CLINICAL HISTORY: cough, septic work up COMPARISON: Chest 08/15/2023 FINDINGS: New right-sided catheter tip within the SVC. Heart is normal in size. Left midlung atelectasis no consolidation pneumothorax pleural effusion or free air. XR/XR chest 2V IMPRESSION: LEFT MIDLUNG ATELECTASIS. NO CONSOLIDATION TO SUGGEST PNEUMONIA. Impression dictated by: Cornel Medel Jr., D.O. 08/15/2024 2:22 PM Dictation Location: [place] [address] Electronically authenticated by: [id number] Y Date: 08/15/2024 14:22
[2024-08-15 14:24] LABS: Glucose Urine UA NEGATIVE (NEGATIVE)
[2024-08-15 19:58] LABS: A. calcoaceticus-baumannii Cpx NOT DETECTED (NOT DETECTE); Bacteroides fragilis NOT DETECTED (NOT DETECTE); Candida auris NOT DETECTED (NOT DETECTE); Candida glabrata NOT DETECTED (NOT DETECTE); Enterococcus faecalis NOT DETECTED (NOT DETECTE); Enterococcus faecium NOT DETECTED (NOT DETECTE); Klebsiella aerogenes NOT DETECTED (NOT DETECTE); Proteus spp. NOT DETECTED (NOT DETECTE); Salmonella spp. NOT DETECTED (NOT DETECTE); Serratia marcescens NOT DETECTED (NOT DETECTE); Staphylococcus epidermidis NOT DETECTED (NOT DETECTE); Staphylococcus lugdunensis NOT DETECTED (NOT DETECTE); Staphylococcus spp. NOT DETECTED (NOT DETECTE); Stenotrophomonas maltophilia NOT DETECTED (NOT DETECTE); Streptococcus pyogenes NOT DETECTED (NOT DETECTE); Streptococcus spp. NOT DETECTED (NOT DETECTE)
[2024-08-15 21:17] LABS: Source BLD
[2024-08-15 21:18] LABS: CTX-M NOT DETECTED (NOT DETECTE)
[2024-08-15 21:19] LABS: IMP NOT DETECTED (NOT DETECTE); KPC NOT DETECTED (NOT DETECTE); NDM NOT DETECTED (NOT DETECTE); OXA-48-like NOT DETECTED (NOT DETECTE); VIM NOT DETECTED (NOT DETECTE); mcr-1 NOT DETECTED (NOT DETECTE)
[2024-08-15 21:20] LABS: Enterobacterales DETECTED (NOT DETECTE); Klebsiella pneumoniae group DETECTED (NOT DETECTE)
== END 2024-08-15 15:22 | disposition home or self-care (01) ==
PROVIDERS: Nurse Practitioner; Emergency Provider Student in an Organized Health Care Education/Training Program; PCP Family Medicine
DX: B34.9 Viral infection, unspecified (principal); Z79.899 Other long term (current) 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; Z90.49 Acquired absence of other specified parts of digestive tract; Z98.84 Bariatric surgery status; Z90.710 Acquired absence of both cervix and uterus
CPT/HCPCS: 36415; 71046; 80053; 81003; 83605; 83690; 85025; 87040; 87077; 87150; 87186; 93005; 96361; 96374; 96375; 99285; J1885; J2405

== ENCOUNTER 2024-08-15 23:32 | Inpatient (IN) | payer MEDICAID, SELFPAY ==
--- OUTSIDE RECORDS SUMMARY | 2024-08-15 04:01 | XMS_ITS ---
Author Organization [facility] in [place] Address [address] [place] [address] Care Team Providers Care Civil Rights Attorney Name Role Phone Brandyn Alas Primary Care Provider [phone] REASON FOR VISIT refill Medications Medication SIG (Take, Route, Fr equency, Duration) Notes Start Date End Date Status fentaNYL 25 MCG/HR 1 patch to skin Key sdermal Q3d for 30 days 08/15/2024 Active Encounters Encounter Location Date Provider Diagnosis [facility] [address] [place] [address] 08/15/2024 Brandyn Alas Partial intestinal obstruction, unspecified as to cause K56.600 Assessments Encounter Date Diagnosis (ICD Code) Assessment Notes Treatment Notes Treatment Clinical Notes Section Notes 08/15/2024 Partial intestinal obstruction, unspecified as to cause (ICD-10 - K56.600) Plan Of Treatment Medication Medication Name Sig Start Date Stop Date Notes fentaNYL 25 MCG/HR 1 patch to skin Key sdermal Q3d for 30 days 08/15/2024 Progress Notes * Abbey KONG MDOB:1990 (34 yo F)Acc No.[id number]:08/15/2024 Patient: Jarrod COVARRUBIASAbbey :1990 A ge:34 Y S ex:Female Address:[address] [place] [address], [id number] * Refills Refill fentaNYL Patch 72 Hour, 25 MCG/HR, Transdermal, 10, 1 patch to skin, Q3d, 30 days, Refills=0 * true * Date: Generated for Hailey jordan/Ari/Chance on: 0 08/16/2024 07:06 AM EDT
--- OUTSIDE RECORDS SUMMARY | 2024-08-15 05:30 | XMS_ITS ---
Author Organization [facility] Address [address] [place] [address] Care Team Providers Care Winder Fixer Name Role Phone Ashley Bryson Primary Care Provider REASON FOR VISIT FILLING Encounters Encounter Location Date Provider Diagnosis [facility] [address] [place] [address] 08/15/2024 Ashley Bryson Plan Of Treatment Next Appt Details Provider Name:Kathrin Fields, 11/03/2024 02:15:00 PM, [address] [place], [address], Progress Notes * JUAN KONG MDOB:1990 (34 yo F)Acc No.[id number]:08/15/2024 Patient: JUAN OSBORNE Provider: Carito Bryson DDS :1990 A ge:34 Y S ex:Female Date:08/15/2024 Address:[address] [place], [place] [phone] Subjective: * Chief Complaints: * 1 . FILLING. * Medical History: Objective: * Vitals: Assessment: Plan: * Treatment: * Images: * Electronic signature of Panfilo Bryson DDS on 08/16/2024 at 07:05 AM EDT Sign off status: Pending * Provider: Carito Bryson DDS Date: 08/15/2024 Generated for Hailey jordan/Ari/Kateitting on: 08/16/2024 07:05 AM EDT
--- OUTSIDE RECORDS SUMMARY | 2024-08-15 06:31 | XMS_ITS ---
Author Organization [facility] [place] Address [address] [place] [address] Care Team Providers Care Computer Information Science Professor Name Role Phone Brandyn Alas Primary Care Provider [phone] REASON FOR VISIT update Encounters Encounter Location Date Provider Diagnosis [facility] [address] [place] [address] 08/15/2024 Brandyn Evette Plan Of Treatment No Information Progress Notes * Abbey KONG MDOB:1990 (34 yo F)Acc No.[id number]:08/15/2024 Patient: Jarrod COVARRUBIASAbbey :1990 A ge:34 Y S ex:Female Address:[address] [place] [address], [phone] * true * Date: Generated for Hailey jordan/Ari/eTransmitting on: 0 08/16/2024 07:06 AM EDT
--- OUTSIDE RECORDS SUMMARY | 2024-08-15 16:43 | XMS_ITS ---
Author Organization [facility] in [place] Address [address] [place] [address] Care Team Providers Care Medical Sales Associate Name Role Phone Brandyn Alas Primary Care Provider Encounters Encounter Location Date Provider Diagnosis [facility] [address] [place] [address] 08/15/2024 Brandyn Alas Plan Of Treatment No Information Progress Notes * Abbey KONG MDOB:1990 (34 yo F)Acc No.[id number]:08/15/2024 UNLOCKED PROGRESS NOTE Patient: Jarrod AlejandroAbbey Salomon :1990 A ge:34 Y S ex:Female Address:[address] [place] [address], [id number] * * Date:
[2024-08-15 23:47] VITALS: BP 105/72; PULSE 70; TEMP 36.3; O2SAT 100; BMI 30.3
--- NOTE | 2024-08-16 00:24 | ED_ITS ---
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 She was seen in this emergency department earlier today for chills and nausea vomiting. The patient states that last evening she was giving herself fluids via her right chest wall port when she suddenly had acute onset of shaking chills with nausea and vomiting. The symptoms lasted approximately 2 hours. After some Tylenol and time her rigors stopped. She states she has not been feeling well today. She is not having any specific abdominal pain but has nausea. She has some flank pain. She has also been having diarrhea recently. She was treated approximately 3 weeks ago for an infection in her J-tube in her left mid abdominal wall. She was seen and evaluated in this emergency department earlier today. Her white count was mildly elevated at 12. She had positive blood cultures with enterobacterales species and Klebsiella pneumonia. She was called to return to the emergency department. She request transfer to [facility] where she receives her medical care. She does not appear to be septic or toxic upon arrival. She does request something for nausea. She denies any specific abdominal pain. She does not have any chest pain or shortness of breath. Workup earlier also included a lactic acid which was normal at 0.6. Urinalysis which was negative for infection, comprehensive metabolic profile which was also normal. Chest x-ray showed some left midlung atelectasis but no sign of consolidative pneumonia. She does complain of some flank pain which is unusual for her. Antibiotics were not implemented during her ER visit earlier today. Related Data Home Medications ?Medication ?Instructions ?Recorded ?Confirmed hydroxyzine HCl 25 mg tablet 25 mg PO BID PRN anxiety 09/17/22 08/16/24 topiramate 100 mg tablet 100 mg PO BID 09/17/2208/16 buspirone 10 mg tablet 10 mg PO TID 06/14/23 metoclopramide HCl 10 mg tablet 10 mg PO AC PRN nausea and vomiting 06/14/23 08/16/24 albuterol sulfate 90 mcg/actuation 2 puff inhalation Q 6H PRN 06/15/23 08/16/24 aerosol inhaler shortness of breath or wheez ing escitalopram oxalate 20 mg tablet 20 mg PO DAILY 06/1408/16/24 levothyroxine 75 mcg tablet 75 mcg PO DAILY 06/15/23 0 08/16/24 acetaminophen 325 mg tablet (Pain 650 mg PO Q4H PRN pa in 06/24/23 08/16/24 Relief (acetaminophen)) Nutrin 45 ml feeding tube Q1H 03/2908/16/24 blood sugar diagnostic ([facility] 03/29/24 08/16/24 Ultra Test strips) [facility]glucose [facility] 03/29/24 03/29/24 Ultra2 Meter) blood-glucose sensor ([employer] 03/29/24 08/16/24 Hunter 3 Plus Sensor device) fentanyl 25 mcg/hr transdermal 1 patch transdermal Q72 H 03/29/24 08/16/24 patch hydrocodone 5 mg-acetaminophen 325 1 tab PO Q6H PRN pa in 03/29/24 08/16/24 mg tablet lancets 30 gauge ([facility] 03/29/24 03/29/24 Plus Lancet) methocarbamol 500 mg tablet 750 mg PO Q6H 03/29/2404/11 omeprazole 40 mg capsule,delayed 40 mg PO BID 03/29/24 08/16/24 release pen needle, diabetic 32 gauge x 03/29/24 03/29/24 5/32 (BD Stefania 2nd Gen Pen Needle) prucalopride 2 mg tablet 2 mg PO DAILY 03/29/2408/16 trazodone 100 mg tablet 100 mg PO .qhs 03/29/2404/11 dexamethasone 2 mg tablet 3 mg PO DAILY 06/21/2408/16 ergocalciferol (vitamin D2) 1,250 1,250 mcg PO .Q7 09/0808/16/24 mcg (50,000 unit) capsule metformin 500 mg tablet 500 mg PO BID 08/16/2408/16 mirtazapine 45 mg tablet 45 mg PO BEDTIME 08/16/24 Previous Rx's ?Medication ?Instructions ?Recorded prochlorperazine maleate 10 mg 10 mg PO Q6H PRN nausea and 06/16/23 tablet (Compazine) vomiting #60 tabs tramadol 50 mg tablet 50 mg PO Q6H PRN pain #28 ta bs 06/16/23 ondansetron 4 mg disintegrating 4 mg PO Q4H PRN nausea and 08/02/24 tablet vomiting 3 days #6 tabs Allergies Allergy/AdvReac Type Severity Reaction Status Date / Time adhesive Allergy Rash Verified 08/15/24 23:53 NSAIDS (Non-Steroidal Allergy intolerance Verified 08/15/24 23:53 Anti-Inflamma codeine AdvReac Vomiting Verified 08/15/24 23:53 Opioid HPI Opioid Management Most Recent Opioid Data: Last Pain Scale 6 08/15/24, 23:47 Last ED Pain Assessment 08/15/24, 23:47 Last MAR Pain Assessment 08/15/24, 13:35 Last ORT Total Score 2 03/29/24, 14:53 Last ORT Risk Category Low Risk 03/29/24, 14:53 PFSH PFSH Medical History (Updated 08/16/24 @ 04:03 by Vicky Bird MD) Hypoglycemia ?E16.2 - Hypoglycemia, unspecified (ICD-10) Gastroenteritis ?K52.9 - Noninfective gastroenteritis and colitis, unspecified (ICD-10) Feeding by G-tube ?Z93.1 - Gastrostomy status (ICD-10) Abdominal pain ?R10.9 - Unspecified abdominal pain (ICD-10) Small bowel intussusception ?K56.1 - Intussusception (ICD-10) Nausea and vomiting ?R11.2 - Nausea with vomiting, unspecified (ICD-10) Flank pain ?R10.9 - Unspecified abdominal pain (ICD-10) Abdominal pain ?R10.9 - Unspecified abdominal pain (ICD-10) Acute abdomen ?R10.0 - Acute abdomen (ICD-10) Intractable nausea and vomiting ?R11.2 - Nausea with vomiting, unspecified (ICD-10) Intractable abdominal pain ?R10.9 - Unspecified abdominal pain (ICD-10) Depression ?F32.A - Depression, unspecified (ICD-10) Asthma ?J45.909 - Unspecified asthma, uncomplicated (ICD-10) Dyspareunia Pelvic pain ?R10.2 - Pelvic and perineal pain (ICD-10) Ovarian cyst ?N83.209 - Unspecified ovarian cyst, unspecified side (ICD-10) PONV (postoperative nausea and vomiting) ?R11.2 - Nausea with vomiting, unspecified (ICD-10) ?Z98.890 - Other specified postprocedural states (ICD-10) PCOS (polycystic ovarian syndrome) ?E28.2 - Polycystic ovarian syndrome (ICD-10) Hypothyroidism (acquired) ?E03.9 - Hypothyroidism, unspecified (ICD-10) Anxiety ?F41.9 - Anxiety disorder, unspecified (ICD-10) GERD (gastroesophageal reflux disease) ?K21.9 - Gastro-esophageal reflux disease without esophagitis (ICD-10) Sleep apnea ?G47.30 - Sleep apnea, unspecified (ICD-10) Anemia ?D64.9 - Anemia, unspecified (ICD-10) Fibromyalgia ?M79.7 - Fibromyalgia (ICD-10) Syncope (07/07/13) ?R55 - Syncope and collapse (ICD-10) Shingles ?B02.9 - Zoster without complications (ICD-10) Headache ?R51.9 - Headache, unspecified (ICD-10) Migraine ?G43.909 - Migraine, unspecified, not intractable, without status migrainosus (ICD-10) Mechanical ileus (01/31/20) ?K56.609 - Unspecified intestinal obstruction, unspecified as to partial versus complete obstruction (ICD-10) COVID-19 (~02/2020) ?U07.1 - COVID-19 (ICD-10) Kidney stones ?N20.0 - Calculus of kidney (ICD-10) Surgical History S/P percutaneous endoscopic gastrostomy (PEG) tube placement ?Z93.1 - Gastrostomy status (ICD-10) 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 - Celiac artery compression syndrome (ICD-10) H/O shoulder surgery (2022) ?Z98.890 - Other specified postprocedural states (ICD-10) History of hip surgery ?Z98.890 - Other specified postprocedural states (ICD-10) S/P right knee arthroscopy ?Z98.890 - Other specified postprocedural states (ICD-10) S/P left knee arthroscopy ?Z98.890 - Other specified postprocedural states (ICD-10) Hx of tonsillectomy ?Z90.89 - Acquired absence of other organs (ICD-10) History of thoracic surgery (~2021) ?Z98.890 - Other specified postprocedural states (ICD-10) History of esophagogastroduodenoscopy (EGD) (10/04/13) ?Z98.890 - Other specified postprocedural states (ICD-10) History of cholecystectomy (10/06/13) ?Z90.49 - Acquired absence of other specified parts of digestive tract (ICD- 10) Delivery by section (~2016) Delivery by section (01/17/18) H/O colonoscopy (~2018) ?Z98.890 - Other specified postprocedural states (ICD-10) S/P right knee arthroscopy (07/21/18) ?Z98.890 - Other specified postprocedural states (ICD-10) Delivery by section (06/19/19) History of appendectomy (09/25/19) ?Z90.49 - Acquired absence of other specified parts of digestive tract (ICD- 10) H/O laparoscopy (11/10/19) ?Z98.890 - Other specified postprocedural states (ICD-10) History of liver biopsy (~04/2020) ?Z98.890 - Other specified postprocedural states (ICD-10) H/O laparoscopy (07/18/20) ?Z98.890 - Other specified postprocedural states (ICD-10) H/O arthroscopy of right knee (08/07/20) ?Z98.890 - Other specified postprocedural states (ICD-10) S/P laparoscopic sleeve gastrectomy (09/03/20) ?Z98.84 - Bariatric surgery status (ICD-10) H/O: hysterectomy (11/12/20) ?Z90.710 - Acquired absence of both cervix and uterus (ICD-10) History of hernia repair (03/20/21) ?Z98.890 - Other specified postprocedural states (ICD-10) ?Z87.19 - Personal history of other diseases of the digestive system (ICD-10) Family History Other Family history of cancer Family history of diabetes mellitus Family history of hypertension Family history of myocardial infarction PONV (postoperative nausea and vomiting) Social History Within the past year, how often did you have a drink containing alcohol: never Score interpretation: A score less than 3 is consistent with normal alcohol consumption. Smoking status: Never smoker Non-prescribed substance use: denies use Highest level of school completed/degree received: Master's degree Are you now , , , , never or living with a partner: In a typical week, how many times do you talk on the telephone with family, friends, or neighbors: 3 or more times per week How often do you get together with friends or relatives: twice per week How often do you attend alevism or sikhism services: 4 or more times per year Do you belong to any clubs or organizations such as alevism groups unions, [employer] or athletic groups, or school groups: no Total score: 3 Score interpretation: A score of greater than or equal to 2 indicates the lowest level of social isolation. Little interest or pleasure in doing things: not at all Feeling down, depressed, or hopeless: not at all Feel stressed/tense/nervous/anxious/difficulty sleeping: to some extent Do you think of yourself as: straight/heterosexual Gender Identity: female Exam Narrative Exam Narrative: Vital signs and Nursing Notes reviewed: Patient is afebrile with a normal pulse, normal blood pressure, she is not hypoxic with pulse ox of 100% on room air General: Awake, alert, oriented, nontoxic female, no acute distress, lying comfortably on the stretcher HEENT: Normocephalic atraumatic, mucous membranes are moist and pink, eyes are clear, normal conjunctiva, vision is grossly intact, posterior pharynx is normal in appearance. Dentition is in good repair. There is a fever blister on the right upper lip. Neck: Supple, no meningeal signs, no anterior or posterior cervical l ymphadenopathy Chest: Lungs are clear to auscultation with good air entry, there is no wheezing rhonchi or rales appreciated no accessory muscle use, patient is speaking in complete sentences-no chest wall tenderness to palpation CVS: Regular rate and rhythm S1-S2, no murmurs rubs or gallops, pulses are brisk and equal bilaterally ABD: Soft, nondistended, nontender, large abdominal incision noted. There is a J-tube in the left mid abdominal wall. There is a port in the right upper chest wall. I do not appreciate any local cellulitis or drainage from either of these sites. Extremities: Moving all extremities, no lower extremity tenderness or swelling noted, negative Homans' sign, pulses are brisk and equal bilaterally Skin: Normal in appearance without rash,pallor, petechiae or purpura Neuro: No focal deficits Constitutional Vital Signs, click to edit/add: Last Vital Signs Temp 97.4 F L 08/15/24 23:47 Pulse 70 08/15/24 23:47 Resp 18 08/15/24 23:47 BP 105/72 08/15/24 23:47 Pulse Ox 100 08/15/24 23:47 O2 Del Method Room Air 08/15/24 23:47 Course Vital Signs Vital signs: Vital Signs Temperature 97.4 F L 08/15/24 23:47 Pulse Rate 70 08/15/24 23:47 Respiratory Rate 18 08/15/24 23:47 Blood Pressure 105/72 08/15/24 23:47 Pulse Oximetry 100 08/15/24 23:47 Oxygen Delivery Method Room Air 08/15/24 23:47 Temperature 97.4 F L 08/15/24 23:47 Pulse Rate 70 08/15/24 23:47 Respiratory Rate 18 08/15/24 23:47 Blood Pressure 105/72 08/15/24 23:47 Pulse Oximetry 100 08/15/24 23:47 Oxygen Delivery Method Room Air 08/15/24 23:47 Medical Decision Making [facility] Narrative Medical decision making narrative: This 34-year-old female who has a history of MALS syndrome and is s/p exploratory laparotomy at [facility] and release of the arcuate ligament states she is still suffering from intestinal failure and receives TPN through a Hodges catheter in her right upper chest wall and also has a J-tube in her left mid abdominal wall presents for evaluation after she was seen earlier in the day and had positive blood cultures for Klebsiella pneumonia and Enterobacteriaceae species. The patient states she has been sick for about 2 days with shaking chills and a low-grade fever. She has also had some flank pain. When she was seen earlier in the day her white count was minimally elevated at 12 with stable hemoglobin. She had a normal lactic acid. Urinalysis was negative for infection. X-ray did not show any acute infiltrate. She return to the emergency department and an IV was established. She was given IV Zosyn. IV Diflucan was also ordered but unavailable but the patient was able to tolerate a p.o. dose of Diflucan. I discussed this with the hospitalist who is concerned that she may have an intra-abdominal infection and requested a CT scan be performed.. CT scan of the abdomen pelvis was ordered. Routine labs were needed. She has a normal white count and stable hemoglobin. Electrolytes are normal. Lactic acid is normal. Repeat blood cultures were also ordered. She was medicated with IV fluids, Compazine, Benadryl, morphine in addition to the Zosyn and oral Diflucan. I did speak with [facility] as we do not have radiology or general surgery here to replace her catheter for her TPN. She has been accepted but the patient request to be admitted to this facility if possible. CT scan of the abdomen pelvis shows small hepatic cyst, trace volume of pericardial fluid, postoperative changes to the stomach, cholecystectomy, G-tube in place, hysterectomy, small volume of free fluid in the posterior pelvis with no abscess or free air. This was once again discussed with the hospitalist and she is excepted for admission to this facility. She states that if she has to have her catheter changed out she can typically get this done as an outpatient at [facility]. Lab Data Labs: Lab Results 08/16/24 Range/Units 00:38 WBC 9.1 (4.0-11.0) 10^3/uL RBC 3.06 L (4.20-5.40) 10^6/uL Hgb 9.8 L (12.0-16.0) g/dL Hct 28.2 L (36.0-48.0) % MCV 92.2 (81.0-99.0) fL MCH 32.0 (26.7-34.0) pg MCHC 34.8 (29.9-35.2) g/dL RDW 13.6 (11.0-15.0) % Plt Count 214 (150-450) 10^3/uL MPV 10.1 (9.5-13.5) fL Neut % (Auto) 82.6 H (43.0-75.0) % Lymph % (Auto) 11.6 L (20.5-60.0) % [place] % (Auto) 4.8 (1.7-12.0) % Eos % (Auto) 0.6 L (0.9-7.0) % Baso % (Auto) 0.1 L (0.2-2.0) % Neut # (Auto) 7.5 H (1.4-6.5) 10^3/uL Lymph # (Auto) 1.1 L (1.2-3.8) 10^3/uL [place] # (Auto) 0.4 (0.3-0.8) 10^3/uL Eos # (Auto) 0.1 (0.0-0.7) 10^3/uL Baso # (Auto) 0.0 (0.0-0.1) 10^3/uL Abs Immat Gran (auto) 0.03 (0.00-0.03) 10^3/uL Imm/Tot Granulo (auto) 0.3 (0.0-0.5) % Sodium 138 (136-145) mmol/L Potassium 3.3 L (3.5-5.1) mmol/L Chloride 104 (98-107) mmol/L Carbon Dioxide 22.5 (21.0-32.0) mmol/L Anion Gap 14.8 BUN 13.0 (7.0-18.0) mg/dL Creatinine 0.47 L (0.55-1.02) mg/dL Est GFR ( Amer) >60 (>=60 mL/min/1.73m^2) Est GFR (Non-Af Amer) >60 (>=60 mL/min/1.73m^2) BUN/Creatinine Ratio 27.7 Glucose 104 (74-106) mg/dL Lactate 0.6 (0.4-2.0) mmol/L Calcium 8.5 (8.5-10.1) mg/dL Total Bilirubin 0.7 (0.2-1.0) mg/dL AST 25 (15-37) U/L ALT 16 (14-59) U/L Alkaline Phosphatase 104 (46-116) U/L Total Protein 5.8 L (6.4-8.2) g/dL Albumin 2.4 L (3.4-5.0) g/dL Globulin 3.4 g/dL Albumin/Globulin Ratio 0.7 Discharge Plan Discharge Chief Complaint: Recheck/Abnormal Lab/Rx Clinical Impression: Bacteremia Patient Disposition: Admitted as Observation Time of Disposition Decision: 04:03 Condition: Good
[2024-08-16] MEDS: 0.9 % SODIUM CHLORIDE 1,000 ML 1000 ML IV (00:51)
[2024-08-16] MEDS: PROCHLORPERAZINE 10 MG/2 ML VIAL IV (00:51)
[2024-08-16] MEDS: DIPHENHYDRAMINE HCL 50 MG/ML VIAL 12.5 MG IVP (00:51)
[2024-08-16 00:54] LABS: Hematocrit 28.2 % (36.0-48.0); Hemoglobin 9.8 g/dL (12.0-16.0); Immature Granulocytes Abs Auto 0.03 10^3/uL (0.00-0.03); Immature Granulocytes Pct Auto 0.3 % (0.0-0.5); Lymphocytes Absolute Auto 1.1 10^3/uL (1.2-3.8); Mean Corpuscular HGB Conc 34.8 g/dL (29.9-35.2); Mean Corpuscular Hemoglobin 32.0 pg (26.7-34.0); Mean Corpuscular Volume 92.2 fL (81.0-99.0); Platelet Count 214 10^3/uL (150-450); Red Blood Count 3.06 10^6/uL (4.20-5.40); White Blood Count 9.1 10^3/uL (4.0-11.0)
[2024-08-16 01:11] LABS: Alanine Aminotransferase 16 U/L (14-59); Albumin Globulin Ratio 0.7; Albumin Level 2.4 g/dL (3.4-5.0); Alkaline Phosphatase 104 U/L (46-116); Anion Gap 14.8; Aspartate Amino Transferase 25 U/L (15-37); Blood Urea Nitrogen 13.0 mg/dL (7.0-18.0); Calcium 8.5 mg/dL (8.5-10.1); Carbon Dioxide 22.5 mmol/L (21.0-32.0); Chloride 104 mmol/L (98-107); Estimated GFR (African America >60 (>=60 mL/min/1.73m^2); Estimated GFR (Non-African Ame >60 (>=60 mL/min/1.73m^2); Globulin 3.4 g/dL; Glucose 104 mg/dL (74-106); Potassium 3.3 mmol/L (3.5-5.1); Sodium 138 mmol/L (136-145); Total Protein 5.8 g/dL (6.4-8.2)
[2024-08-16 01:13] LABS: Lactate/Lactic Acid 0.6 mmol/L (0.4-2.0)
[2024-08-16] MEDS: PIPERACILLIN SODIUM/TAZOBACTAM 3.375 GM in 0.9 % SODIUM CHLORIDE 50 ML IV (01:35)
[2024-08-16] MEDS: MORPHINE SULFATE 4 MG/ML VIAL IV (01:35)
[2024-08-16] MEDS: OXYCODONE HCL/ACETAMINOPHEN 5MG/325MG 1 TAB PO (02:07)
[2024-08-16] MEDS: FLUCONAZOLE 150 MG TABLET PO (02:07)
[2024-08-16 04:25] VITALS: BP 96/54; PULSE 119; TEMP 37.2; O2SAT 94
[2024-08-16 04:50] VITALS: BMI 31.1
[2024-08-16] MEDS: POTASSIUM CHLORIDE 10 MEQ ER TABLET 40 MEQ PO (05:04)
[2024-08-16] MEDS: ERTAPENEM SODIUM 1 GM in 0.9 % SODIUM CHLORIDE 50 ML IV (05:04)
--- OUTSIDE RECORDS SUMMARY | 2024-08-16 07:05 | XMS_ITS | Encounter Summary ---
Author Organization [facility] Address [address] [place] [address] Care Team Providers Care Supply Chain Planner Name Role Phone VanessaAnna hendricks PUBLIC HEALTH POLICY ANALYST Unavailable Unallocated, Noms Provider Primary Care Provi pako Tj Najera PA Unavailable [phone] Thomas Alas MD Primary Care Provider [phone] Encounter Details Date Type Department Care Team (Late st Contact Info) Description 10/30/2022 Abstract [facility] 112 [facility] 150 [place] [address] Tj Najera PA 112 [facility] 150 [place] [address] Social History Tobacco Use Types Packs/Day Years [...] on filedocumented in this encounter Care Teams Supply Chain Planner Relationship Specialty Start Date End Date Unallocated, Noms Provider, [address] [place] [address] PCP - General 07/23/22 12/13/23 Tj Najera PA [address] [place] [address] PCP - Medical [place] [employer] 07/16/22 04/24/23 Thomas Alas MD [address] [place] [address] PCP - General Family Medicine 12/14/23 Anna Mendez NP [address] [place] [address] Referring Physician Family Medicine 07/23/22 documented as of this encounter
--- OUTSIDE RECORDS SUMMARY | 2024-08-16 07:05 | XMS_ITS | Encounter Summary ---
Author Organization [facility] Address [address] [place] [address] Care Team Providers Care Analyst Name Role Phone VanessaAnna hendricks MANAGER PAID Unavailable Unallocated, Noms Provider Primary Care Provi pako Tj Najera Unavailable [phone] Thomas Alas MD Primary Care Provider [phone] Encounter Details Date Type Department Care Team (Late st Contact Info) Description 10/02/2022 Abstract [facility] [address] [place] [id number] Raegan Frye PA [address] [facility] [address] [place], [place] [address] Social History Tobacco Use Types Packs/Day Years [...] on filedocumented in this encounter Care Teams Analyst Relationship Specialty Start Date End Date Unallocated, Noms Provider, [address] [place] [address] PCP - General 07/23/22 12/13/23 Tj Najera PA [address] [place] [address] PCP - Medical [place] [employer] 07/16/22 04/24/23 Thomas Alas MD [address] [place] [address] PCP - General Family Medicine 12/14/23 Anna Mendez NP [address] [place] [address] Referring Physician Family Medicine 07/23/22 documented as of this encounter
--- OUTSIDE RECORDS SUMMARY | 2024-08-16 07:05 | XMS_ITS | Encounter Summary ---
Author Organization [facility] Address [address] [place] [address] Care Team Providers Care Hot Air Furnace Installer And Repairer Name Role Phone VanessaAnna hendricks COMPUTER TRAINING SPECIALIST Unavailable Unallocated, Noms Provider Primary Care Provi pako Tj Najera PA Unavailable [phone] Thomas Alas MD Primary Care Provider [phone] Encounter Details Date Type Department Care Team (Late st Contact Info) Description 11/20/2022 Abstract [facility] 112 [facility] 150 [place] [address] Tj Najera PA 112 [facility] 150 [place] [address] Social History Tobacco Use Types Packs/Day Years [...] on filedocumented in this encounter Care Teams Hot Air Furnace Installer And Repairer Relationship Specialty Start Date End Date Unallocated, Noms Provider, [address] [address] PCP - General 07/23/22 12/13/23 Tj Najera PA [address] [place] [address] PCP - Medical [place] [employer] 07/16/22 04/24/23 Thomas Alas MD [address] [place] [address] PCP - General Family Medicine 12/14/23 Anna Mendez NP [address] [place] [address] Referring Physician Family Medicine 07/23/22 documented as of this encounter
--- OUTSIDE RECORDS SUMMARY | 2024-08-16 07:05 | XMS_ITS | Encounter Summary ---
Author Organization [facility] Address [address] [place] [address] Care Team Providers Care Decaler Name Role Phone VanessaAnna hendricks CUTTER OPERATOR TILE Unavailable Unallocated, Noms Provider Primary Care Provi pako Tj Najera PA Unavailable [phone] Thomas Alas MD Primary Care Provider [phone] Encounter Details Date Type Department Care Team (Late st Contact Info) Description 09/07/2022 Abstract [facility] 112 [facility] 150 [place] [address] Tj Najera PA 112 [facility] 150 [place] [address] Social History Tobacco Use Types Packs/Day Years [...] on filedocumented in this encounter Care Teams Decaler Relationship Specialty Start Date End Date Unallocated, Noms Provider, [address] [address] PCP - General 07/23/22 12/13/23 Tj Najera PA [address] [place] [address] PCP - Medical [place] [employer] 07/16/22 04/24/23 Thomas Alas MD [address] [place] [address] PCP - General Family Medicine 12/14/23 Anna Mendez NP [address] [place] [address] Referring Physician Family Medicine 07/23/22 documented as of this encounter
--- OUTSIDE RECORDS SUMMARY | 2024-08-16 07:05 | XMS_ITS | Encounter Summary ---
Author Organization [facility] Address [address] [place] [address] Care Team Providers Care Magnet Placer Name Role Phone VanessaAnna hendricks FIELD SPECIALIST Unavailable Unallocated, Noms Provider Primary Care Provi pako Tj Najera PA Unavailable [phone] Thomas Alas MD Primary Care Provider [phone] Encounter Details Date Type Department Care Team (Late st Contact Info) Description 10/05/2022 Abstract [facility] 112 [facility] 150 [place] [address] Tj Najera PA 112 [facility] 150 [place] [address] Social History Tobacco Use Types Packs/Day Years [...] on filedocumented in this encounter Care Teams Magnet Placer Relationship Specialty Start Date End Date Unallocated, Noms Provider, [address] [address] PCP - General 07/23/22 12/13/23 Tj Najera PA [address] [place] [address] PCP - Medical [place] [employer] 07/16/22 04/24/23 Thomas Alas MD [address] [place] [address] PCP - General Family Medicine 12/14/23 Anna Mendez NP [address] [place] [address] Referring Physician Family Medicine 07/23/22 documented as of this encounter
--- OUTSIDE RECORDS SUMMARY | 2024-08-16 07:06 | XMS_ITS | Clinical Summary ---
Author Organization [facility] Address [address] [place] [address] Care Team Providers Care It Service Continuity Supervisor Name Role Phone Unavailable Primary Care Provider Unavailabl e Social History Tobacco Use Types Packs/Day Years Used Date Smoking Tobacco: Never Assessed Comments Unknown Sex and Gender Information Value Date Recorded Sex Assigned at Not on file Legal Sex Female 12:07 AM EDT Gender Identity Not on file [...] patient's age to complete this topic Insurance [facility] [employer] [facility]
--- OUTSIDE RECORDS SUMMARY | 2024-08-16 07:06 | XMS_ITS | Referral Summary ---
Author Organization [facility] Address [address] [place] [address] Care Team Providers Care Crew Supervisor Name Role Phone Unavailable Primary Care Provider Unavailabl e Social History Tobacco Use Types Packs/Day Years Used Date Smoking Tobacco: Never Assessed Comments Unknown Sex and Gender Information Value Date Recorded Sex Assigned at Not on file Legal Sex Female 12:07 AM EDT Gender Identity Not on file Sexual Orientation Not on file Plan of Treatment Not on file Insurance [facility] [employer]
--- OUTSIDE RECORDS SUMMARY | 2024-08-16 07:06 | XMS_ITS | Encounter Summary ---
Author Organization [facility] tem Address [id number] [address] [place] [address] Care Team Providers Care C 40A Crew Chief Name Role Phone No Pcp, No Pcp Primary Care Provider Unavailabl e Encounter Details Date Type Department Care Team (Late st Contact Info) Description 09/28/2017 Orders Only Maternal- Medicine at [facility] [address] [place] [id number] Holger Alcala MD [address] [facility] [address] [place] [address] Social History Tobacco Use Types Packs/Day Years [...] on filedocumented in this encounter Care Teams C 40A Crew Chief Relationship Specialty Start Date End Date No Pcp, [place] [address] PCP - General Family Medicine 09/22/17 documented as of this encounter
--- OUTSIDE RECORDS SUMMARY | 2024-08-16 07:06 | XMS_ITS | Encounter Summary ---
Author Organization [facility] Address [address] [place] [address] Care Team Providers Care Fryline Attendant Name Role Phone Anna Mendez [employer] INSTALLER Unavailable Unallocated, Noms Provider Primary Care Provi pako Thomas Alas MD Primary Care Provider [phone] Encounter Details Date Type Department Care Team (Late st Contact Info) Description 10/29/2023 Abstract [facility] [address] [place] [address] Vero Medeiros LPN [address] [place] [address] Social History Tobacco Use Types [...] on filedocumented in this encounter Care Teams Fryline Attendant Relationship Specialty Start Date End Date Unallocated, Noms [place] [address] PCP - General 07/23/22 12/13/23 Thomas Alas MD [address] [facility] [place] [address] PCP - General Family Medicine 12/14/23 Anna Mendez NP [address] [place] [address] Referring Physician Family Medicine 07/23/22 documented as of this encounter
--- OUTSIDE RECORDS SUMMARY | 2024-08-16 07:06 | XMS_ITS | Patient Health Record ---
Author Organization [facility] es Address [address] [place] [address] Care Team Providers Care [place] Supervisor Name Role Phone Ashley Bryson Primary Care Provider [phone] Reason For Referral No Information Encounters Encounter Location Date Provider Diagnosis [facility] [address] [place] [address] 04/25/2024 Ashley Bryson Encounter for dental examination [...] Fields, 11/03/2024 02:15:00 PM, [address] [place], [address], Insurance Providers Payer Name Payer Address Payer Phone Subscriber Number Group Number Insured Name Patient Relationship to Insured Coverage Start Date Coverage End Date Dental [employer] DQ [address] [place] [phone] [id number] JUAN KONG Self - patient is the insured 5 [employer] [facility] Human [address] [place] [address] [id number] JUAN KONG Self - patient is the insured 5
--- OUTSIDE RECORDS SUMMARY | 2024-08-16 07:06 | XMS_ITS | Clinical Summary ---
Author [facility] Address [address] [place] [address] Care Team Providers Care Raisin Separator Operator Name Role Phone Anna Mendez APRN - ZEYAD Primary Care Provider [phone] Allergies Active Allergy Reactions Criticality Noted Date [...] - 19+ 3-dose series) 2008 COVID-19 Vaccine (3 - 2023- season) 2023 02/18/2021, 06/23/2020 Flu vaccine (#1) 09/15/2024 11/12/2022, 03/2021, 01/01/2021, Additional history exists DTaP/Tdap/Td vaccine (2 [...] Garcia Ex-Spouse Primary Decision Maker Care Teams Raisin Separator Operator Relationship Specialty Start Date End Date Anna Mendez APRN - ZEYAD [address] [place] [address] PCP - General 11/28/22
--- OUTSIDE RECORDS SUMMARY | 2024-08-16 07:06 | XMS_ITS | Patient Health Record ---
Author Organization The [facility] in [place] Address [address] [place] [address] Care Team Providers Care Sales Contracts Analyst Name Role Phone Brandyn Alas Primary Care Provider [phone] BRITT ALAS Unavailable [phone] Allergies Allergen (clinical drug ingredient) Drug/Non Drug Allergy documented on EMR Reaction Allergy Type Onset Date Status codeine Codeine vomiting Drug Allergy Active Non-steroidal anti-inflammatory agent (FN) NSAIDs Gastric bypass Drug Allergy Active Results Component Value Reference Range Notes CBC AUTO DIFF Reviewed date:08/10/2024 07:02:35 PM Interpretation: Performing Lab: Notes/Report: [facility] , White Blood Count 9.3 4.0-11.0 10 3/uL Red Blood Count 3.21 4.20-5.40 10 6/uL Hemoglobin 10.3 12.0-16.0 g/dL Hematocrit 29.5 36.0-48.0 % Mean Corpuscular Volume 91.9 81.0-99.0 fL Mean Corpuscular Hemoglobin 32.1 26.7-34.0 pg Mean Corpuscular HGB Conc 34.9 29.9-35.2 g/dL Red Cell Distribution Width 13.4 11.0-15.0 % Platelet Count 123 150-450 10 3/uL Mean Platelet Volume 11.5 9.5-13.5 fL Neutrophils Percent Auto 83.2 43.0-75.0 % Lymphocytes Percent Auto 10.6 20.5-60.0 % Monocytes Percent Auto 4.5 1.7-12.0 % Eosinophils Percent Auto 0.1 0.9-7.0 % Basophils Percent Auto 0.2 0.2-2.0 % Immature Granulocytes Pct Auto 1.4 0.0-0.5 % Neutrophils Absolute Auto 7.7 1.4-6.5 10 3/uL Lymphocytes Absolute Auto 1.0 1.2-3.8 10 3/uL Monocytes Absolute Auto 0.4 0.3-0.8 10 3/uL Eosinophils Absolute Auto 0.0 0.0-0.7 10 3/uL Basophils Absolute Auto 0.0 0.0-0.1 10 3/uL Immature Granulocytes Abs Auto 0.13 0.00-0.03 10 3/uL Performing Lab: see note ML - [facility] LB CBC AUTO DIFF Reviewed date:09/12/2023 11:35:30 AM Interpretation: Performing Lab: Notes/Report: [facility] , White Blood Count 5.1 4.0-11.0 [...] Performing Lab: see note ML - [facility] LB US right upper quadrant Reviewed date:09/08/2023 07:45:42 AM Interpretation: Performing Lab: Notes/Report: Source Facility: [facility]-[address] [place] [address] [place] [address] Ultrasound Report Signed Patient: JUAN GARCIA MR#: [id number] : 1990 Acct:[id number] Age/Sex: 33 / F ADM Date: 09/07/23 Loc: US Attending Dr: Britt Alas M.D. Ordering Physician: Britt Alas M.D. Date of Service: 09/07/23 Procedure(s): US right upper quadrant Accession Number(s): [id number] cc: Britt Alas M.D. [place] [address] Patient Name: JUAN GARCIA MRN: [id number] date: 1990 Sex: F Assigned Patient Location: US Current Patient Location: Accession/Order Number: [id number] Exam Date: 09/07/2023 17:04 Report Date: 09/08/2023 [...] M.D. Signed By: 09/08/23711 DD/ 8 TD/TT: Carriage Dogger: [place] [address] Ultrasound Report Signed Patient: JUAN GARCIA MR#: [id number] : 1990 Acct:[id number] Age/Sex: 33 / F ADM Date: 09/07/23 Loc: US Attending Dr: Ezra Alas M.D. Ordering Physician: Britt Alas M.D. Date of Service: 09/07/23 Procedure(s): US rig ht upper quadrant Accession Number(s): [id number] cc: Britt Alas M.D. [place] [address] Patient Name: JUAN GARCIA MRN: [id number] date: 1990 Sex: F Assigned Patient Location: US Current Patient Location: Accession/Order Numb er: [id number] Exam Date: 09/07/2023 17:04 Report Date: 09/08/2023 [...] M.D. Signed By: 09/08/23711 DD/ 8 TD/TT: Carriage Dogger: TRIGLYCERIDE Reviewed date:09/05/2023 04:34:54 PM Interpretation: Performing Lab: Notes/Report: [facility] , Triglycerides 126 <=150 mg/dL Performing Lab: see note ML - [facility] LB PROF 14(COMP METB) Reviewed date:09/05/2023 04:34:54 PM Interpretation: Performing Lab: Notes/Report: [facility] , Sodium 140 136-145 mmol/L Potassium [...] Performing Lab: see note ML - [facility] LB PHOSPHORUS Reviewed date:09/05/2023 04:34:54 PM Interpretation: Performing Lab: Notes/Report: [facility] , Phosphorus 3.0 2.6-4.7 mg/dL Performing Lab: see note ML - [facility] LB MAGNESIUM Reviewed date:09/05/2023 04:34:54 PM Interpretation: Performing Lab: Notes/Report: [facility] , Magnesium 2.0 1.8-2.4 mg/dL Performing Lab: see note ML - [facility] LB CBC AUTO DIFF Reviewed date:09/05/2023 04:34:54 PM Interpretation: Performing Lab: Notes/Report: [facility] , White Blood Count 5.7 4.0-11.0 [...] Performing Lab: see note ML - [facility] LB CBC AUTO DIFF Reviewed date:08/29/2023 11:49:42 AM Interpretation: Performing Lab: Notes/Report: [facility] , White Blood Count 5.7 4.0-11.0 [...] 3/uL Performing Lab: see note ML - [facility] LB TRIGLYCERIDE Reviewed date:08/19/2023 04:59:32 PM Interpretation: Performing Lab: Notes/Report: [facility] , Triglycerides 78 <=150 mg/dL Performing Lab: see note - [facility] LB PROF 14(COMP METB) Reviewed date:08/19/2023 04:59:32 PM Interpretation: Performing Lab: Notes/Report: [facility] , Sodium 138 136-145 mmol/L Potassium [...] Performing Lab: see note ML - [facility] LB PHOSPHORUS Reviewed date:08/19/2023 04:59:32 PM Interpretation: Performing Lab: Notes/Report: [facility] , Phosphorus 2.8 2.6-4.7 mg/dL Performing Lab: see note ML - [facility] LB MAGNESIUM Reviewed date:08/19/2023 04:59:32 PM Interpretation: Performing Lab: Notes/Report: [facility] , Magnesium 2.0 1.8-2.4 mg/dL Performing Lab: see note ML - [facility] LB CBC AUTO DIFF Reviewed date:08/19/2023 12:28:56 PM Interpretation: Performing Lab: Notes/Report: [facility] , White Blood Count 4.1 4.0-11.0 [...] 10 3/uL Performing Lab: see note - [facility] LB Transferrin Reviewed date:10/31/2023 10:33:37 AM Interpretation: Performing Lab: Notes/Report: [facility] , Transferrin 317 192-364 mg/dL Performed at: [address] [id number] Capacity Manager: Daron Almanza PhD, Phone: [phone] Performing Lab: see note [facility] Vitamin A, Serum Reviewed date:11/11/2023 06:52:40 PM Interpretation: Performing Lab: Notes/Report: [facility] , Vitamin A, Serum 50.1 18.9-57.3 ug/dL Reference intervals for vitamin A determined from [facility] internal studies. Individuals with vitamin A less than 20 ug/dL are considered vitamin A deficient and those with serum concentrations less than 10 ug/dL are considered severely deficient. This test was developed and its performance characteristics determined by [facility]. It has not been cleared or approved by the Food and Drug Administration. Performed at: [address] [id number] Capacity Manager: Suhas Ring MD, Phone: [phone] Performing Lab: see note [facility] LB CBC AUTO DIFF Reviewed date:11/05/2023 12:57:51 PM Interpretation: Performing Lab: Notes/Report: [facility] , White Blood Count 6.6 4.0-11.0 [...] 3/uL Performing Lab: see note ML - [facility] LB FREE T3 Reviewed date:11/25/2023 07:16:42 PM Interpretation: Performing Lab: Notes/Report: [facility] DROP OFF [facility] , Free T3 2.07 2.18-3.98 pg/mL Performing Lab: see note ML - [facility] LB T4 Reviewed date:11/25/2023 07:16:42 PM Interpretation: Performing Lab: Notes/Report: [facility] DROP OFF [facility] , T4 Thyroxine 7.60 4.80-13.90 ug/dL Performing Lab: see note ML - [facility] LB TSH Reviewed date:11/25/2023 07:16:42 PM Interpretation: Performing Lab: Notes/Report: [facility] DROP OFF [facility] , Thyroid Stimulating Hormone 1.315 0.358-3.740 uIU/mL Performing Lab: see note - [facility] LB Testosterone Reviewed date:11/26/2023 12:56:46 PM Interpretation: Performing Lab: Notes/Report: [facility] , Testosterone <3 8-60 ng/dL Performing Lab: see note LC - [facility] LB Progesterone Reviewed date:11/26/2023 12:56:46 PM Interpretation: Performing Lab: Notes/Report: [facility] , Progesterone <0.1 . ng/mL Follicular phase 0.1 - 0.9 Luteal phase 1.8 - 23.9 Ovulation phase 0.1 - 12.0 First trimester 11.0 - 44.3 Second trimester 25.4 - 83.3 Third trimester 58.7 - 214.0 Postmenopausal 0.0 - 0.1 Performed at: [address] [id number] Capacity Manager: Daron Almanza PhD, Phone: [phone] Performing Lab: see note [facility] LB FSH Reviewed date:11/26/2023 12:56:46 PM Interpretation: Performing Lab: Notes/Report: [facility] , FSH 3.4 . mIU/mL Adult Female Range Follicular phase 3.5 - 12.5 Ovulation phase 4.7 - 21.5 Luteal phase 1.7 - 7.7 Postmenopausal 25.8 - 134.8 Performing Lab: see note [facility] Estradiol Reviewed date:11/26/2023 12:56:46 PM Interpretation: Performing Lab: Notes/Report: [facility] , Estradiol 170.0 . pg/mL Adult Female Range Follicular phase 12.5 - 166.0 Ovulation phase 85.8 - 498.0 Luteal phase 43.8 - 211.0 Postmenopausal <6.0 - 54.7 1st trimester 215.0 - >4300.0 Kamran ECLIA methodology Performing Lab: see note [facility] LB TRIGLYCERIDE Reviewed date:10/24/2023 08:22:27 PM Interpretation: Performing Lab: Notes/Report: [facility] , Triglycerides 123 <=150 mg/dL Performing Lab: see note - [facility] LB PROF 14(COMP METB) Reviewed date:10/24/2023 08:22:27 PM Interpretation: Performing Lab: Notes/Report: [facility] , Sodium 140 136-145 mmol/L Potassium [...] Performing Lab: see note ML - [facility] LB PHOSPHORUS Reviewed date:10/24/2023 08:22:27 PM Interpretation: Performing Lab: Notes/Report: [facility] , Phosphorus 2.4 2.6-4.7 mg/dL Performing Lab: see note ML - [facility] LB MAGNESIUM Reviewed date:10/24/2023 08:22:27 PM Interpretation: Performing Lab: Notes/Report: [facility] , Magnesium 1.5 1.8-2.4 mg/dL Performing Lab: see note ML - [facility] LB CBC AUTO DIFF Reviewed date:10/24/2023 08:22:27 PM Interpretation: Performing Lab: Notes/Report: [facility] , White Blood Count 5.9 4.0-11.0 [...] 10 3/uL Performing Lab: see note - [facility] LB TRIGLYCERIDE Reviewed date:10/10/2023 09:42:37 PM Interpretation: Performing Lab: Notes/Report: NURSE DROP OFF FROM [facility] , Triglycerides 132 <=150 mg/dL Performing Lab: see note - [facility] LB XR abdomen 1V Reviewed date:01/17/2024 01:32:20 PM Interpretation: Performing Lab: Notes/Report: Source Facility: [place] [address] XRay Report Signed Patient: JUAN GARCIA MR#: [id number] : 1990 Acct:[id number] Age/Sex: 33 / F ADM Date: 01/17/24 Loc: ER Attending Dr: Ordering Physician: Leslie Terrazas M.D. Date of Service: 01/17/24 Procedure(s): XR abdomen 1V Accession Number(s): [id number] cc: Britt Alas M.D.; Leslie Terrazas M.D. [place] [address] Patient Name: JUAN GARCIA MRN: [id number] date: 1990 Sex: F Assigned Patient Location: ER Current Patient Location: ER Accession/Order Number: [id number] Exam Date: 01/17/2024 12:55 Report Date: 01/17/2024 [...] Signed By: 01/17/24 1329 DD/ 25 TD/TT: Carriage Dogger: [place] [address] XRay Report Signed Patient: JUAN GARCIA MR#: [id number] : 1990 Acct:[id number] Age/Sex: 33 / F ADM Date: 01/17/24 Loc: ER Attending Dr: Ordering Physician: Leslie Terrazas M.D. Date of Service: 01/17/24 Procedure(s): XR abd omen 1V Accession Number(s): [id number] cc: Britt Alas M.D. ; Leslie Terrazas M.D. [place] [address] Patient Name: JUAN GARCIA MRN: [id number] date: 1990 Sex: F Assigned Patient Location: ER Current Patient Loca tion: ER Accession/Order Numb er: [id number] Exam Date: 12:55 Report Date: 01/17/2024 13:26 [...] Dictated By: Brad Baca M.D. Signed By: 01/17/241328 DD/ 25 TD/TT: Carriage Dogger: PROF Hickey(COMP METB) Reviewed date:10/10/2023 09:42:37 PM Interpretation: Performing Lab: Notes/Report: NURSE DROP OFF FROM [facility] , Sodium 136 136-145 mmol/L Potassium 3.5 [...] Ratio 1.2 Performing Lab: see note - [facility] LB PHOSPHORUS Reviewed date:10/10/2023 09:42:37 PM Interpretation: Performing Lab: Notes/Report: NURSE DROP OFF FROM [facility] , Phosphorus 2.4 2.6-4.7 mg/dL Performing Lab: see note [facility] LB MAGNESIUM Reviewed date:10/10/2023 09:42:37 PM Interpretation: Performing Lab: Notes/Report: NURSE DROP OFF FROM [facility] , Magnesium 1.8 1.8-2.4 mg/dL Performing Lab: see note [facility] LB CBC AUTO DIFF Reviewed date:10/10/2023 09:42:37 PM Interpretation: Performing Lab: Notes/Report: [place] [facility] , White Blood Count 4.9 4.0-11.0 [...] Performing Lab: see note ML - [facility] LB TRIGLYCERIDE Reviewed date:09/27/2023 08:56:29 AM Interpretation: Performing Lab: Notes/Report: [facility] , Triglycerides 47 <=150 mg/dL Performing Lab: see note - [facility] LB PROF 14(COMP METB) Reviewed date:09/27/2023 08:56:29 AM Interpretation: Performing Lab: Notes/Report: [facility] , Sodium 139 136-145 mmol/L Potassium [...] 1.3 Performing Lab: see note ML - [facility] LB PHOSPHORUS Reviewed date:09/27/2023 08:56:29 AM Interpretation: Performing Lab: Notes/Report: [facility] , Phosphorus 2.4 2.6-4.7 mg/dL Performing Lab: see note ML - [facility] LB MAGNESIUM Reviewed date:09/27/2023 08:56:29 AM Interpretation: Performing Lab: Notes/Report: [facility] , Magnesium 1.8 1.8-2.4 mg/dL Performing Lab: see note ML - [facility] LB CBC AUTO DIFF Reviewed date:09/27/2023 08:56:29 AM Interpretation: Performing Lab: Notes/Report: [facility] , White Blood Count 8.5 4.0-11.0 [...] 3/uL Performing Lab: see note ML - [facility] LB CT abdomen pelvis w con Reviewed date:11/07/2023 09:01:52 PM Interpretation: Performing Lab: Notes/Report: Source Facility: [place] [address] CT Scan Report Signed Patient: JUAN GARCIA MR#: [id number] : 1990 Acct:[id number] Age/Sex: 33 / F ADM Date: 11/07/23 Loc: ER Attending Dr: Ordering Physician: Leslie Terrazas M.D. Date of Service: 11/07/23 Procedure(s): CT abdomen pelvis w con Accession Number(s): [id number] cc: Britt Alas M.D. [place] [address] Patient Name: JUAN GARCIA MRN: [id number] date: 1990 Sex: F Assigned Patient Location: ED.MAIN Current Patient Location: ER Accession/Order Number: [id number] Exam Date: 11/07/2023 11:52 Report Date: 11/07/2023 [...] Signed By: 11/07/23 1304 DD/ 1301 TD/TT: Carriage Dogger: [place] [address] CT Scan Report Signed Patient: JUAN GARCIA MR#: [id number] : 1990 Acct:[id number] Age/Sex: 33 / F ADM Date: 11/07/23 Loc: ER Attending Dr: Ordering Physician: Leslie Terrazas M.D. Date of Service: 11/07/23 Procedure(s): CT abd omen pelvis w con Accession Number(s): [id number] cc: Britt Alas M.D. [facility] [address] [place], [place] [address] Patient Name: JUAN GARCIA MRN: [id number] date: 1990 Sex: F Assigned Patient Location: ED.MAIN Current Patient Loca tion: ER Accession/Order Numb er: [id number] Exam Date: 11/07/2023 11:52 Report Date: 11/07/2023 [...] Signed By: 11/07/23 1304 DD/ 1301 TD/TT: Carriage Dogger: TRIGLYCERIDE Reviewed date:09/12/2023 11:35:30 AM Interpretation: Performing Lab: Notes/Report: [facility] , Triglycerides 67 <=150 mg/dL Performing Lab: see note ML - [facility] LB PROF 14(COMP METB) Reviewed date:09/12/2023 11:35:30 AM Interpretation: Performing Lab: Notes/Report: [facility] , Sodium 139 136-145 mmol/L Potassium [...] Performing Lab: see note ML - [facility] LB PHOSPHORUS Reviewed date:09/12/2023 11:35:30 AM Interpretation: Performing Lab: Notes/Report: [facility] , Phosphorus 3.2 2.6-4.7 mg/dL Performing Lab: see note ML - [facility] LB MAGNESIUM Reviewed date:09/12/2023 11:35:30 AM Interpretation: Performing Lab: Notes/Report: [facility] , Magnesium 1.6 1.8-2.4 mg/dL Performing Lab: see note ML - [facility] LB CBC AUTO DIFF Reviewed date:10/28/2023 09:28:45 PM Interpretation: Performing Lab: Notes/Report: [facility] , White Blood Count 5.1 4.0-11.0 [...] Performing Lab: see note ML - [facility] LB CT abdomen pelvis wo con Reviewed date:09/09/2023 08:48:02 PM Interpretation: Performing Lab: Notes/Report: Source Facility: [facility]-[address] [place] [address] [place] [address] CT Scan Report Signed Patient: JUAN GARCIA MR#: [id number] : 1990 Acct:[id number] Age/Sex: 33 / F ADM Date: 09/08/23 Loc: CT Attending Dr: Britt Alas M.D. Ordering Physician: Britt Alas M.D. Date of Service: 09/08/23 Procedure(s): CT abdomen pelvis wo con Accession Number(s): [id number] cc: Britt Alas M.D. The [address] [address] Patient Name: JUAN GARCIA MRN: [id number] date: 1990 Sex: F Assigned Patient Location: CT Current Patient Location: Accession/Order Number: [id number] Exam Date: 09/08/2023 16:05 Report Date: 09/09/2023 [...] M.D. Signed By: 09/09/23816 DD/ 3 TD/TT: Carriage Dogger: [place] [address] CT Scan Report Signed Patient: JUAN GARCIA MR#: [id number] : 1990 Acct:[id number] Age/Sex: 33 / F ADM Date: 09/08/23 Loc: CT Attending Dr: Ezra Alas M.D. Ordering Physician: Britt Alas M.D. Date of Service: 09/08/23 Procedure(s): CT abd omen pelvis wo con Accession Number(s): [id number] cc: Britt Alas M.D. [place] [address] Patient Name: JUAN GARCIA MRN: [id number] date: 1990 Sex: F Assigned Patient Location: CT Current Patient Location: Accession/Order Numb er: [id number] Exam Date: 09/08/2023 16:05 Report Date: 09/09/2023 [...] M.D. Signed By: 09/09/23816 DD/ 3 TD/TT: Carriage Dogger: MAGNESIUM Reviewed date:03/29/2024 09:46:23 PM Interpretation: Performing Lab: Notes/Report: [facility] , Magnesium 1.8 1.8-2.4 mg/dL Performing Lab: see note ML - [facility] LB COPPER, SERUM or PLASMA Reviewed date:11/11/2023 06:52:40 PM Interpretation: Performing Lab: Notes/Report: [facility] , Copper Level 94 80-158 ug/dL This test was developed and its performance characteristics determined by [facility]. It has not been cleared or approved by the Food and Drug Administration. Detection Limit = 5 Performing Lab: see note LC - [facility] LB TSH Reviewed date:03/29/2024 09:46:23 PM Interpretation: Performing Lab: Notes/Report: [facility] , Thyroid Stimulating Hormone 0.622 0.358-3.740 uIU/mL Performing Lab: see note ML - [facility] LB CRP Reviewed date:10/28/2023 09:28:45 PM Interpretation: Performing Lab: Notes/Report: [facility] DROP OFF [facility] , C Reactive Protein <0.50 <=0.50 mg/dL Performing Lab: see note ML - [facility] LB FERRITIN Reviewed date:10/28/2023 09:28:45 PM Interpretation: Performing Lab: Notes/Report: [facility] , Ferritin 6.0 8.0-252.0 ng/mL Performing Lab: see note ML - [facility] LB IRON AND TIBC Reviewed date:10/28/2023 09:28:45 PM Interpretation: Performing Lab: Notes/Report: [facility] , Iron 48.0 50.0-170.0 ug/dL Total Iron Binding Capacity 364.0 250.0-450.0 ug/dL Percent Iron Saturation 13.2 Performing Lab: see note ML - [facility] LB MAGNESIUM Reviewed date:10/28/2023 09:28:45 PM Interpretation: Performing Lab: Notes/Report: [facility] DROP OFF [facility] , Magnesium 2.1 1.8-2.4 mg/dL Performing Lab: see note ML - [facility] LB TRIGLYCERIDE Reviewed date:08/29/2023 11:49:42 AM Interpretation: Performing Lab: Notes/Report: [facility] , Triglycerides 65 <=150 mg/dL Performing Lab: see note ML - [facility] LB PROF 14(COMP METB) Reviewed date:08/29/2023 11:49:42 AM Interpretation: Performing Lab: Notes/Report: [facility] , Sodium 142 136-145 mmol/L Potassium [...] 1.1 Performing Lab: see note ML - [facility] LB PHOSPHORUS Reviewed date:08/29/2023 11:49:42 AM Interpretation: Performing Lab: Notes/Report: [facility] , Phosphorus 3.3 2.6-4.7 mg/dL Performing Lab: see note ML - [facility] LB MAGNESIUM Reviewed date:08/29/2023 11:49:42 AM Interpretation: Performing Lab: Notes/Report: [facility] , Magnesium 1.9 1.8-2.4 mg/dL Performing Lab: see note ML - [facility] LB PHOSPHORUS Reviewed date:10/28/2023 09:28:45 PM Interpretation: Performing Lab: Notes/Report: [facility] DROP OFF [facility] , Phosphorus 2.5 2.6-4.7 mg/dL Performing Lab: see note ML - [facility] LB PROF 14(COMP METB) Reviewed date:10/28/2023 09:28:45 PM Interpretation: Performing Lab: Notes/Report: [facility] DROP OFF [facility] , Sodium 136 136-145 mmol/L Potassium [...] 1.2 Performing Lab: see note ML - [facility] LB VITAMIN D 25 [place] Reviewed date:10/28/2023 09:28:45 PM Interpretation: Performing Lab: Notes/Report: [facility] , Vitamin D 38.2 <20 ng/mL Vit D deficient 20-<30 ng/mL Vit D insufficient 30-100 ng/mL Vit D sufficient >100 ng/mL Potential Toxicity Performing Lab: see note ML - [facility] LB ZINC SERUM OR PLASMA Reviewed date:11/11/2023 06:52:40 PM Interpretation: Performing Lab: Notes/Report: [facility] , Zinc Level 58 44-115 ug/dL This test was developed and its performance characteristics determined by [facility]. It has not been cleared or approved by the Food and Drug Administration. Detection Limit = 5 Performed at: [address] [id number] Capacity Manager: Suhas Ring MD, Phone: [phone] Performing Lab: see note [facility] Vitamin B6, Plasma Reviewed date:11/03/2023 05:35:59 PM Interpretation: Performing Lab: Notes/Report: [facility] , Vitamin B6, Plasma 12.2 3.4-65.2 ug/L This test was developed and its performance characteristics determined by [facility]. It has not been cleared or approved by the Food and Drug Administration. Deficiency: <3.4 Marginal: 3.4 - 5.1 Adequate: >5.1 Performed at: [address] [id number] Capacity Manager: Suhas Ring MD, Phone: [phone] Performing Lab: see note [facility] Methylmalonic Acid, Serum Reviewed date:11/01/2023 08:50:20 PM Interpretation: Performing Lab: Notes/Report: [facility] , Methylmalonic Acid, Serum 142 0-378 nmol/L This test was developed and its performance characteristics determined by [facility]. It has not been cleared or approved by the Food and Drug Administration. Performed at: [address] [id number] Capacity Manager: Suhas Ring MD, Phone: [phone] Performing Lab: see note [facility] Vitamin B12 Reviewed date:11/01/2023 08:50:20 PM Interpretation: Performing Lab: Notes/Report: [facility] , Vitamin B12 128 713-8849 pg/mL Performed at: [address] [id number] Capacity Manager: Daron Almanza PhD, Phone: [phone] Performing Lab: see note [facility] LAB TESTING Reviewed date:11/03/2023 06:27:21 PM Interpretation: Performing Lab: Notes/Report: [id number] Chromium, Plasma [facility] , Miscellaneous Test COMMENT . Test Ordered: [id number] Chromium, Plasma Chromium, Plasma 1.0 ug/L SPOWA Reference Range: 0.1-2.1 This test was developed and its performance characteristics determined by [facility]. It has not been cleared or approved by the Food and Drug Administration. Detection Limit = 0.1 Performed at: [facility] [address], [place], [place] [id number] Capacity Manager: Olga Michael MD, Phone: [phone] Performed at: [address] [id number] Capacity Manager: Daron Almanza PhD, Phone: [phone] Performing Lab: see note [facility] LAB TESTING Reviewed date:11/08/2023 02:17:18 PM Interpretation: Performing Lab: Notes/Report: [id number] Vitamin E (a and ? Tocopherol) [facility] , Miscellaneous Test COMMENT . Test Ordered: [id number] Vitamin E Vitamin E(Alpha Tocopherol) 9.1 mg/L Reference Range: 5.9-19.4 This test was developed and its performance characteristics determined by [facility]. It has not been cleared or approved by the Food and Drug Administration. Vitamin E(Gamma Tocopherol) 0.7 mg/L Reference Range: 0.7-4.9 This test was developed and its performance characteristics determined by [facility]. It has not been cleared or approved by the Food and Drug Administration. Reference intervals for alpha and gamma-tocopherol determined from National Health and Nutrition Examination Survey, 3638-5651. Individuals with alpha-tocopherol levels less than 5.0 mg/L are considered vitamin E deficient. Performed at: [address] [id number] Capacity Manager: Suhas Ring MD, Phone: [phone] Performed at: [address] [id number] Capacity Manager: Daron Almanza PhD, Phone: [phone] Performing Lab: see note [facility] LB LAB TESTING Reviewed date:11/10/2023 08:23:17 PM Interpretation: Performing Lab: Notes/Report: [id number] Manganese, Whole Blood [facility] , Miscellaneous Test COMMENT . Test Ordered: [id number] Manganese, Blood Manganese, Blood Comment: ug/L [facility] Reference Range: 8.0-18.7 Manganese, Blood Result: 11 [...] developed and its performance characteristics determined by [facility]. This test has not been cleared or approved by the U.S. Food and Drug Administration. This test was developed and its performance characteristics determined by [facility]. It has not been cleared or approved by the Food and Drug Administration. Performed at: [address], [place], [place] [id number] Capacity Manager: Will Hatch PhD, Phone: [phone] Performed at: [address] [id number] Capacity Manager: Daron Almanza PhD, Phone: [phone] Performing Lab: see note - [facility] LB UA Micro, reflex to culture Reviewed date:08/02/2024 05:29:08 PM Interpretation: Performing Lab: Notes/Report: [facility] , Color Urine LT. YELLOW YELLOW Clarity Urine CLEAR CLEAR Specific Luck Urine <=1.005 1.005-1.025 pH Urine 6.5 5.0-9.0 Protein Urine NEGATIVE NEG/TRACE mg/dL Glucose Urine UA NEGATIVE NEGATIVE mg/dL Bilirubin Urine NEGATIVE NEGATIVE Ketones Urine NEGATIVE NEGATIVE mg/dL Blood Urine NEGATIVE NEGATIVE Nitrite Urine NEGATIVE NEGATIVE Urobilinogen Urine 0.2 0.2-1.0 EU/dL Leukocyte Esterase Urine NEGATIVE NEGATIVE WBC Urine NONE SEEN NONE SEEN #/HPF RBC Urine NONE SEEN 0-2 #/HPF Bacteria Urine TRACE NONE SEEN #/HPF Mucus Urine NONE SEEN NONE SEEN Squamous Epithelial Cell Urine FEW NONE/RARE #/LPF Crystals Seen? None Seen None Seen #/HPF Cast Seen? NONE SEEN NONE SEEN #/LPF Urine Culture Indicated NO Performing Lab: see note ML - [facility] LB AMYLASE Reviewed date:11/05/2023 12:57:51 PM Interpretation: Performing Lab: Notes/Report: [facility] , Amylase 46 25-115 U/L Performing Lab: see note ML - [facility] LB LIPASE Reviewed date:08/02/2024 05:29:08 PM Interpretation: Performing Lab: Notes/Report: [facility] , Lipase 67.0 16.0-77.0 U/L Performing Lab: see note ML - [facility] LB BNP Reviewed date:11/05/2023 12:57:51 PM Interpretation: Performing Lab: Notes/Report: [facility] , NT Pro B Type Natriuretic Pept 36.0 <=450.0 pg/mL Performing Lab: see note ML - [facility] LB BLOOD CULTURE ID PANEL (Not yet reviewed by provider) Interpretation: Performing Lab: Notes/Report: [facility] , CTX-M NOT DETECTED NOT DETECTE IMP NOT DETECTED NOT DETECTE KPC NOT DETECTED NOT DETECTE mcr-1 NOT DETECTED NOT DETECTE mecA/C NOT APPLICABLE NOT DETECTE mecA/C and MREJ (MRSA) NOT APPLICABLE NOT DETECTE NDM NOT DETECTED NOT DETECTE OXA-48-like NOT DETECTED NOT DETECTE Ama/B NOT APPLICABLE NOT DETECTE VIM NOT DETECTED NOT DETECTE Source BLD Enterococcus faecalis NOT DETECTED NOT DETECTE Enterococcus faecium NOT DETECTED NOT DETECTE Listeria monocytogenes NOT DETECTED NOT DETECTE Staphylococcus spp. NOT DETECTED NOT DETECTE Staphylococcus aureus NOT DETECTED NOT DETECTE Staphylococcus epidermidis NOT DETECTED NOT DETECTE Staphylococcus lugdunensis NOT DETECTED NOT DETECTE Streptococcus spp. NOT DETECTED NOT DETECTE Streptococcus agalactiae NOT DETECTED NOT DETECTE Streptococcus pneumoniae NOT DETECTED NOT DETECTE Streptococcus pyogenes NOT DETECTED NOT DETECTE A. calcoaceticus-baumannii Cpx NOT DETECTED NOT DETECTE Bacteroides fragilis NOT DETECTED NOT DETECTE Enterobacterales DETECTED NOT DETECTE RESULTS CALLED TO SHAHZAD MARKEL RN @BY Andie Yepez at 2118 Enterobacter cloacae complex NOT DETECTED NOT DETECTE Escherichia coli NOT DETECTED NOT DETECTE Klebsiella aerogenes NOT DETECTED NOT DETECTE Klebsiella oxytoca NOT DETECTED NOT DETECTE Klebsiella pneumoniae group DETECTED NOT DETECTE RESULTS CALLED TO SHAHZAD MARKEL RN @BY Andie Yepez at 2119 Proteus spp. NOT DETECTED NOT DETECTE Salmonella spp. NOT DETECTED NOT DETECTE Serratia marcescens NOT DETECTED NOT DETECTE Haemophilus influenzae NOT DETECTED NOT DETECTE Neisseria meningitidis NOT DETECTED NOT DETECTE Pseudomonas aeruginosa NOT DETECTED NOT DETECTE Stenotrophomonas maltophilia NOT DETECTED NOT DETECTE Alea albicans NOT DETECTED NOT DETECTE Alea auris NOT DETECTED NOT DETECTE Alea glabrata NOT DETECTED NOT DETECTE Alea krusei NOT DETECTED NOT DETECTE Alea parapsilosis NOT DETECTED NOT DETECTE Alea tropicalis NOT DETECTED NOT DETECTE Cryptococcus neoformans/gattii NOT DETECTED NOT DETECTE Performing Lab: see note ML - [facility] LB LIPASE Reviewed date:11/05/2023 12:57:52 PM Interpretation: Performing Lab: Notes/Report: [facility] , Lipase 46.0 16.0-77.0 U/L Performing Lab: see note ML - [facility] LB LACTATE or LACTIC ACID Reviewed date:08/15/2024 06:53:10 PM Interpretation: Performing Lab: Notes/Report: [facility] , Lactate/Lactic Acid 0.6 0.4-2.0 mmol/L Performing Lab: see note ML - [facility] LB LIPASE Reviewed date:08/15/2024 06:53:11 PM Interpretation: Performing Lab: Notes/Report: [facility] , Lipase 60.0 16.0-77.0 U/L Performing Lab: see note ML - [facility] LB PROF 14(COMP METB) Reviewed date:08/15/2024 06:53:11 PM Interpretation: Performing Lab: Notes/Report: [facility] , Sodium 137 136-145 mmol/L Potassium 3.8 3.5-5.1 mmol/L Chloride 102 98-107 mmol/L Carbon Dioxide 23.5 21.0-32.0 mmol/L Anion Gap 15.3 Glucose 115 74-106 mg/dL Blood Urea Nitrogen 11.0 7.0-18.0 mg/dL Creatinine 0.61 0.55-1.02 mg/dL Estimated GFR ( Shelby >60 >=60 mL/min/1.73m 2 Estimated GFR (Non- Caroline >60 >=60 mL/min/1.73m 2 BUN Creatinine Ratio 18.0 Calcium 8.2 8.5-10.1 mg/dL Bilirubin Total 0.6 0.2-1.0 mg/dL Aspartate Amino Transferase 27 15-37 U/L Alanine Aminotransferase 17 14-59 U/L Alkaline Phosphatase 114 46-116 U/L Total Protein 6.2 6.4-8.2 g/dL Albumin Level 2.5 3.4-5.0 g/dL Globulin 3.7 Albumin Globulin Ratio 0.7 Performing Lab: see note ML - [facility] LB PROF 14(COMP METB) Reviewed date:11/05/2023 12:57:52 PM Interpretation: Performing Lab: Notes/Report: [facility] , Sodium 137 136-145 mmol/L Potassium 3.1 3.5-5.1 mmol/L Chloride 101 98-107 mmol/L Carbon Dioxide 26.0 21.0-32.0 mmol/L Anion Gap 13.1 Glucose 58 74-106 mg/dL Blood Urea Nitrogen 14.0 7.0-18.0 mg/dL Creatinine 0.88 0.55-1.02 mg/dL Estimated GFR ( Shelby >60 >=60 Estimated GFR (Non- Caroline >60 >=60 BUN Creatinine Ratio 15.9 Calcium 8.0 8.5-10.1 mg/dL Bilirubin Total 0.3 0.2-1.0 mg/dL Aspartate Amino Transferase 24 15-37 U/L Alanine Aminotransferase 23 14-59 U/L Alkaline Phosphatase 71 46-116 U/L Total Protein 6.4 6.4-8.2 g/dL Albumin Level 3.5 3.4-5.0 g/dL Globulin 2.9 Albumin Globulin Ratio 1.2 Performing Lab: see note ML - [facility] ECG 12 lead (Not yet reviewe d by provider) Interpretation: Performing Lab: Notes/Report: Source Facility: [facility]-[address] [place] [address] [place] [address] Electrocardiograph Report Signed Patient: JUAN GARCIA MR#: [id number] : 1990 Acct:[id number] Age/Sex: 34 / F ADM Date: 08/15/24 Loc: ER Attending Dr: Ordering Physician: Domenica Romeo Date of Service: 08/15/24 Procedure(s): ECG 12 lead Accession Number(s): [id number] cc: [facility] Test Date: 2024-08-15 Pat Name: JUAN GARCIA Department: Room: - Gender: Female 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 Measurements Intervals [place] Rate: 82 P: 45 NC: 142 QRS: 75 QRSD: 84 T: 44 QT: 402 QTc: 440 Interpretive Statements 1100 Sinus rhythm 9110 normal ECG Compared to ECG 06/21/2024 11:24:35 No significant changes Electronically Signed On 08-16-2024 6:37:55 EDT by JAMES HODGES M.D. 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 Measurements Intervals [place] Rate: 82 P: 45 NC: 142 QRS: 75 QRSD: 84 T: 44 QT: 402 QTc: 440 Interpretive Statements 1100 Sinus rhythm 9110 normal ECG Compared to ECG 06/21/2024 11:24:35 No significant changes Electronically Gemini d On 08-16-2024 6:37:55 EDT by JAMES HODGES M.D. Dictated By: JAMES HODGES Signed By: 08/16/24 0637 DD/ 1303 TD/TT: Carriage Dogger: Troponin I High Sensitivity Reviewed date:11/05/2023 12:57:52 PM Interpretation: Performing Lab: Notes/Report: [facility] , Troponin I High Sensitivity 4.0 4.0-51.3 pg/mL CUT-OFF POINTS HAVE BEEN ESTABLISHED BASED ON THE FOURTH UNIVERSAL DEFINITION OF MYOCARDIAL INFARCTION. THE UPPER REFERENCE LIMIT (URL) OF TROPONIN, DEFINED THE 99TH PERCENTILE OF cTnI DISTRIBUTION IN A REFERENCE POPULATION, HAS BEEN CONFIRMED THE DECISION THRESHOLD FOR LA DIAGNOSIS. 99TH PERCENTILE = 51.4 PG/ML NOTE: HIGH-SENSITIVITY TROPONIN ASSAY IS NOT INTENDED TO BE USED IN ISOLATION BUT SHOULD BE INTERPRETED IN CONJUNCTION WITH OTHER DIAGNOSTIC AND CLINICAL INFORMATION. Performing Lab: see note ML - [facility] LB CBC AUTO DIFF (Not yet revie wed by provider) Interpretation: Performing Lab: Notes/Report: [facility] , White Blood Count 9.1 4.0-11.0 10 3/uL Red Blood Count 3.06 4.20-5.40 10 6/uL Hemoglobin 9.8 12.0-16.0 g/dL Hematocrit 28.2 36.0-48.0 % Mean Corpuscular Volume 92.2 81.0-99.0 fL Mean Corpuscular Hemoglobin 32.0 26.7-34.0 pg Mean Corpuscular HGB Conc 34.8 29.9-35.2 g/dL Red Cell Distribution Width 13.6 11.0-15.0 % Platelet Count 214 150-450 10 3/uL Mean Platelet Volume 10.1 9.5-13.5 fL Neutrophils Percent Auto 82.6 43.0-75.0 % Lymphocytes Percent Auto 11.6 20.5-60.0 % Monocytes Percent Auto 4.8 1.7-12.0 % Eosinophils Percent Auto 0.6 0.9-7.0 % Basophils Percent Auto 0.1 0.2-2.0 % Immature Granulocytes Pct Auto 0.3 0.0-0.5 % Neutrophils Absolute Auto 7.5 1.4-6.5 10 3/uL Lymphocytes Absolute Auto 1.1 1.2-3.8 10 3/uL Monocytes Absolute Auto 0.4 0.3-0.8 10 3/uL Eosinophils Absolute Auto 0.1 0.0-0.7 10 3/uL Basophils Absolute Auto 0.0 0.0-0.1 10 3/uL Immature Granulocytes Abs Auto 0.03 0.00-0.03 10 3/uL Performing Lab: see note ML - [facility] LB LACTATE or LACTIC ACID (Not yet reviewed by provider) Interpretation: Performing Lab: Notes/Report: [facility] , Lactate/Lactic Acid 0.6 0.4-2.0 mmol/L Performing Lab: see note ML - [facility] LB PROF 14(COMP METB) (Not yet reviewed by provider) Interpretation: Performing Lab: Notes/Report: [facility] , Sodium 138 136-145 mmol/L Potassium 3.3 3.5-5.1 mmol/L Chloride 104 98-107 mmol/L Carbon Dioxide 22.5 21.0-32.0 mmol/L Anion Gap 14.8 Glucose 104 74-106 mg/dL Blood Urea Nitrogen 13.0 7.0-18.0 mg/dL Creatinine 0.47 0.55-1.02 mg/dL Estimated GFR ( [place] >60 >=60 mL/min/1.73m 2 Estimated GFR (Non- Caroline >60 >=60 mL/min/1.73m 2 BUN Creatinine Ratio 27.7 Calcium 8.5 8.5-10.1 mg/dL Bilirubin Total 0.7 0.2-1.0 mg/dL Aspartate Amino Transferase 25 15-37 U/L Alanine Aminotransferase 16 14-59 U/L Alkaline Phosphatase 104 46-116 U/L Total Protein 5.8 6.4-8.2 g/dL Albumin Level 2.4 3.4-5.0 g/dL Globulin 3.4 Albumin Globulin Ratio 0.7 Performing Lab: see note ML - [facility] LB Aerobic Culture Reviewed date:11/11/2023 03:26:07 PM [...] Staphylococcus aureus : O:GNR Isolated O:PSAV Isolated O:STAR Isolated Organism: 2.2 Antibiotic Interpretation SANDHYA Status [...] Clindamycin S F Aerobic Culture Performed at: [facility] Aerobic Culture Organism: Staphylococcus aureus [...] Clindamycin Clindamycin S F Aerobic Culture [address] [place], [place] [id number] Aerobic Culture Organism: Staphylococcus aureus : O:GNR [...] F Clindamycin Clindamycin S F Aerobic Culture Capacity Manager: Thierno Almanza PhD, Phone: [phone] Aerobic Culture Organism: Staphylococcus aureus : O:GNR Isolated O:PSAV Isolated O:STAELAINER Isolated Organism: 2.2 Antibiotic Interpretation SANDHYA Status [...] Tobramycin S F Organism: 2.3 Antibiotic Interpretation SNADHYA Status Ciprofloxacin Ciprofloxacin S F Erythromycin Erythromycin [...] Staphylococcus aureus : O:GNR Isolated O:PSAV Isolated O:KRISHNAELAINER Isolated Organism: 2.2 Antibiotic Interpretation SANDHYA Status [...] Staphylococcus aureus : O:GNR Isolated O:PSAV Isolated O:STAR Isolated Organism: 2.2 Antibiotic Interpretation SANDHYA Status [...] Staphylococcus aureus : O:GNR Isolated O:PSAV Isolated O:KRISHNAELAINER Isolated Organism: 2.2 Antibiotic Interpretation SANDHYA Status [...] LC - [facility] LB SEE REPORT - Dry Kiln Worker Id information not found for OBX-specific personal lines appraiser legend Anaerobic Culture Reviewed date:11/11/2023 03:26:07 PM Interpretation: Performing Lab: Notes/Report: [facility] , Anaerobic Culture See Below For Report Anaerobic Culture Anaerobic Culture No anaerobic growth in 72 hours. Anaerobic Culture Performing Lab: see note LC - [facility] LB MAGNESIUM Reviewed date:11/11/2023 03:26:07 PM Interpretation: Performing Lab: Notes/Report: [facility] , Magnesium 2.1 1.8-2.4 mg/dL Performing Lab: see note - [facility] LB PHOSPHORUS Reviewed date:11/11/2023 03:26:07 PM Interpretation: Performing Lab: Notes/Report: [facility] , Phosphorus 2.3 2.6-4.7 mg/dL Performing Lab: see note - [facility] LB PROF 14(COMP METB) Reviewed date:11/11/2023 03:26:07 PM Interpretation: Performing Lab: Notes/Report: [facility] , Sodium 137 136-145 mmol/L Potassium [...] 1.2 Performing Lab: see note ML - [facility] LB TRIGLYCERIDE Reviewed date:11/11/2023 03:26:07 PM Interpretation: Performing Lab: Notes/Report: [facility] , Triglycerides 83 <=150 mg/dL Performing Lab: see note - [facility] LB UA (CLEAN or CATCH) REGIONAL CLINICAL DIRECTOR or M ICRO IF IND. Reviewed date:11/20/2023 08:26:20 PM Interpretation: Performing Lab: Notes/Report: [facility] , Color Urine YELLOW YELLOW Clarity Urine CLEAR CLEAR Specific Luck Urine 1.015 1.005-1.025 pH Urine 7.0 5.0-9.0 Protein Urine NEGATIVE NEG/TRACE mg/dL Glucose Urine UA NEGATIVE NEGATIVE mg/dL Bilirubin Urine NEGATIVE NEGATIVE Ketones Urine NEGATIVE NEGATIVE mg/dL Blood Urine NEGATIVE NEGATIVE Nitrite Urine NEGATIVE NEGATIVE Urobilinogen Urine 0.2 0.2-1.0 EU/dL Leukocyte Esterase Urine NEGATIVE NEGATIVE Urine Microscopic Indicated NO Performing Lab: see note ML - [facility] LB Aerobic Culture Reviewed date:11/24/2023 08:11:28 PM [...] Interpretation SANDHYA Status Aerobic Culture Performed at: [facility] Aerobic Culture Organism: Gram negative jeffery : O:GNR Isolated O:PSAV Isolated Organism: 1.2 Antibiotic Interpretation SANDHYA Status Aerobic Culture [address] [place], [place] [id number] Aerobic Culture Organism: Gram negative jeffery : O:GNR Isolated O:PSAV Isolated Organism: 1.2 Antibiotic Interpretation SANDHYA Status Aerobic Culture Capacity Manager: Thierno Almanza PhD, Phone: [phone] Aerobic Culture Organism: Gram negative jeffery : [...] Interpretation SANDHYA Status Performing Lab: see note LC - [facility] LB SEE REPORT - Dry Kiln Worker Id information not found for OBX-specific personal lines appraiser legend CBC AUTO DIFF Reviewed date:11/25/2023 07:16:42 PM Interpretation: Performing Lab: Notes/Report: [facility] , White Blood Count 5.5 4.0-11.0 [...] Performing Lab: see note ML - [facility] LB MAGNESIUM Reviewed date:11/25/2023 07:16:42 PM Interpretation: Performing Lab: Notes/Report: [facility] , Magnesium 1.9 1.8-2.4 mg/dL Performing Lab: see note ML - [facility] LB PHOSPHORUS Reviewed date:11/25/2023 07:16:42 PM Interpretation: Performing Lab: Notes/Report: [facility] , Phosphorus 2.4 2.6-4.7 mg/dL Performing Lab: see note - [facility] LB PROF 14(COMP METB) Reviewed date:11/25/2023 07:16:42 PM Interpretation: Performing Lab: Notes/Report: [facility] , Sodium 139 136-145 mmol/L Potassium [...] 1.1 Performing Lab: see note ML - [facility] LB PROLACTIN Reviewed date:11/26/2023 12:56:46 PM Interpretation: Performing Lab: Notes/Report: [facility] , Prolactin 8.4 4.8-33.4 ng/mL Performing Lab: see note [facility] LB Testosterone,Free and Total Reviewed date:12/23/2023 07:44:34 PM Interpretation: Performing Lab: Notes/Report: [facility] , Testosterone <3 8-60 ng/dL Free Testosterone(Direct) <0.2 0.0-4.2 pg/mL Performed at: [facility] [address] [id number] Capacity Manager: Daron Almanza PhD, Phone: [phone] Performed at: [facility] [address] [id number] Capacity Manager: Suhas Ring MD, Phone: [phone] Performing Lab: see note [facility] LB MAGNESIUM Reviewed date:01/06/2024 01:36:15 PM Interpretation: Performing Lab: Notes/Report: [facility] , Magnesium 1.7 1.8-2.4 mg/dL Performing Lab: see note ML - [facility] LB PHOSPHORUS Reviewed date:01/06/2024 01:36:15 PM Interpretation: Performing Lab: Notes/Report: [facility] , Phosphorus 3.3 2.6-4.7 mg/dL Performing Lab: see note ML - [facility] LB PROF 14(COMP METB) Reviewed date:01/06/2024 01:36:15 PM Interpretation: Performing Lab: Notes/Report: [facility] , Sodium 140 136-145 mmol/L Potassium [...] 1.2 Performing Lab: see note ML - [facility] LB XR acute abdomen series Reviewed date:01/12/2024 05:28:40 PM Interpretation: Performing Lab: Notes/Report: Source Facility: [place] [address] XRay Report Signed Patient: JUAN GARCIA MR#: [id number] : 1990 Acct:[id number] Age/Sex: 33 / F ADM Date: 01/10/24 Loc: LAB Attending Dr: Britt Alas M.D. Ordering Physician: Britt Alas M.D. Date of Service: 01/10/24 Procedure(s): XR acute abdomen series Accession Number(s): [id number] cc: Britt Alas M.D. [place] [address] Patient Name: JUAN GARCIA MRN: [id number] date: 1990 Sex: F Assigned Patient Location: LAB Current Patient Location: Accession/Order Number: [id number] Exam Date: 01/10/2024 10:06 Report Date: 01/12/2024 [...] Dictated By: Brad Baca M.D. Signed By: 01/12/248 DD/ 44 TD/TT: Carriage Dogger: [place] [address] XRay Report Signed Patient: JUAN GARCIA MR#: [id number] : 1990 Acct:[id number] Age/Sex: 33 / F ADM Date: 01/10/24 Loc: LAB Attending Dr: Ezra Alas M.D. Ordering Physician: Britt Alas M.D. Date of Service: 01/10/24 Procedure(s): XR acu te abdomen series Accession Number(s): [id number] cc: Britt Alas M.D. [place] [address] Patient Name: JUAN GARCIA MRN: [id number] date: 1990 Sex: F Assigned Patient Location: LAB Current Patient Location: Accession/Order Numb er: [id number] Exam Date: 10:06 Report Date: 01/12/2024 14:45 [...] Dictated By: Brad Baca M.D. Signed By: 01/12/248 DD/ 44 TD/TT: Carriage Dogger: ECG 12 lead Reviewed date:09/27/2023 08:56:29 AM Interpretation: Performing Lab: Notes/Report: Source Facility: [place] [address] Electrocardiograph Report Signed Patient: JUAN GARCIA MR#: [id number] : 1990 Acct:[id number] Age/Sex: 33 / F ADM Date: 09/23/23 Loc: ER Attending Dr: Ordering Physician: Leslie Terrazas M.D. 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 Signed By: 09/25/23 0722 DD/ 183 TD/TT: Carriage Dogger: The [address] [address] Electrocardiograph Report Signed Patient: JUAN GARCIA MR#: [id number] : 1990 Acct:[id number] Age/Sex: 33 / F ADM Date: 09/23/23 Loc: ER Attending Dr: Ordering Physician: Leslie Terrazas M.D. 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 Signed By: 09/25/23721 DD/ 183 TD/TT: Carriage Dogger: UA (CLEAN or CATCH) REGIONAL CLINICAL DIRECTOR or M TAYAO IF IND. Reviewed date:09/26/2023 10:10:02 AM Interpretation: Performing Lab: Notes/Report: [facility] , Color Urine LT. YELLOW YELLOW Clarity Urine SL CLOUDY CLEAR Specific Luck Urine 1.010 1.005-1.025 pH Urine 7.0 5.0-9.0 Protein Urine NEGATIVE NEG/TRACE mg/dL Glucose Urine UA NEGATIVE NEGATIVE mg/dL Bilirubin Urine NEGATIVE NEGATIVE Ketones Urine NEGATIVE NEGATIVE mg/dL Blood Urine NEGATIVE NEGATIVE Nitrite Urine NEGATIVE NEGATIVE Urobilinogen Urine 0.2 0.2-1.0 EU/dL Leukocyte Esterase Urine NEGATIVE NEGATIVE Urine Microscopic Indicated NO Performing Lab: see note ML - [facility] LB PROF CHEM 8 (BAS METB) Reviewed date:09/26/2023 10:10:02 AM Interpretation: Performing Lab: Notes/Report: [facility] , Sodium 139 136-145 mmol/L Potassium 3.1 3.5-5.1 mmol/L Chloride 103 98-107 mmol/L Carbon Dioxide 28.2 21.0-32.0 mmol/L Anion Gap 10.9 Glucose 85 74-106 mg/dL Blood Urea Nitrogen 7.0 7.0-18.0 mg/dL Creatinine 0.80 0.55-1.02 mg/dL Estimated GFR ( Shelby >60 >=60 Estimated GFR (Non- Caroline >60 >=60 BUN Creatinine Ratio 8.8 Calcium 8.6 8.5-10.1 mg/dL Performing Lab: see note ML - [facility] LB LIVER PROFILE Reviewed date:09/26/2023 10:10:02 AM Interpretation: Performing Lab: Notes/Report: [facility] , Bilirubin Total 0.4 0.2-1.0 mg/dL Bilirubin Direct 0.1 0.0-0.2 mg/dL Aspartate Amino Transferase 31 15-37 U/L Alanine Aminotransferase 33 14-59 U/L Alkaline Phosphatase 58 46-116 U/L Total Protein 6.5 6.4-8.2 g/dL Albumin Level 3.6 3.4-5.0 g/dL Globulin 2.9 Albumin Globulin Ratio 1.2 Performing Lab: see note ML - [facility] LB LIPASE Reviewed date:09/26/2023 10:10:02 AM Interpretation: Performing Lab: Notes/Report: [facility] , Lipase 35.0 16.0-77.0 U/L Performing Lab: see note ML - [facility] LB CBC AUTO DIFF Reviewed date:09/26/2023 10:10:02 AM Interpretation: Performing Lab: Notes/Report: [facility] , White Blood Count 4.9 4.0-11.0 [...] 10 3/uL Performing Lab: see note - [facility] LB AMYLASE Reviewed date:09/26/2023 10:10:02 AM Interpretation: Performing Lab: Notes/Report: [facility] , Amylase 39 25-115 U/L Performing Lab: see note - [facility] LB CBC AUTO DIFF Reviewed date:02/16/2024 03:19:17 PM Interpretation: Performing Lab: Notes/Report: [facility] , White Blood Count 7.7 4.0-11.0 [...] 10 3/uL Performing Lab: see note - [facility] LB MAGNESIUM Reviewed date:02/16/2024 03:19:17 PM Interpretation: Performing Lab: Notes/Report: [facility] , Magnesium 1.8 1.8-2.4 mg/dL Performing Lab: see note - [facility] LB PHOSPHORUS Reviewed date:02/16/2024 03:19:17 PM Interpretation: Performing Lab: Notes/Report: [facility] , Phosphorus 3.3 2.6-4.7 mg/dL Performing Lab: see note [facility] LB PROF 14(COMP METB) Reviewed date:02/16/2024 03:19:17 PM Interpretation: Performing Lab: Notes/Report: [facility] , Sodium 142 136-145 mmol/L Potassium [...] Performing Lab: see note ML - [facility] LB CBC AUTO DIFF Reviewed date:03/29/2024 09:46:23 PM Interpretation: Performing Lab: Notes/Report: [facility] , White Blood Count 8.6 4.0-11.0 [...] 3/uL Performing Lab: see note ML - [facility] LB PROF 14(COMP METB) Reviewed date:03/29/2024 09:46:23 PM Interpretation: Performing Lab: Notes/Report: [facility] , Sodium 143 136-145 mmol/L Potassium [...] 1.2 Performing Lab: see note ML - [facility] LB CBC AUTO DIFF Reviewed date:03/30/2024 07:56:16 PM Interpretation: Performing Lab: Notes/Report: [facility] , White Blood Count 4.6 4.0-11.0 [...] 3/uL Performing Lab: see note ML - [facility] MAGNESIUM Reviewed date:03/30/2024 07:56:16 PM Interpretation: Performing Lab: Notes/Report: [facility] , Magnesium 1.7 1.8-2.4 mg/dL Performing Lab: see note - [facility] PROF CHEM 8 (BAS METB) Reviewed date:03/30/2024 07:56:16 PM Interpretation: Performing Lab: Notes/Report: [facility] , Sodium 140 136-145 mmol/L Potassium [...] mg/dL Performing Lab: see note ML - [facility] AMYLASE Reviewed date:06/21/2024 12:59:38 PM Interpretation: Performing Lab: Notes/Report: [facility] , Amylase 51 25-115 U/L Performing Lab: see note - [facility] LB LAB TESTING Reviewed date:11/01/2023 08:50:20 PM Interpretation: Performing Lab: Notes/Report: [id number] Selenium, Serum or Plasma [facility] , Miscellaneous Test COMMENT . Test Ordered: [id number] Selenium, Serum/Plasma Selenium, Serum/Plasma 111 ug/L Reference Range: 93-198 This test was developed and its performance characteristics determined by [facility]. It has not been cleared or approved by the Food and Drug Administration. Performed at: - [facility] [id number] Capacity Manager: Suhas Ring MD, Phone: [phone] Performed at: - [facility] [id number] Capacity Manager: Daron Almanza PhD, Phone: [phone] Performing Lab: see note - [facility] LB CBC AUTO DIFF Reviewed date:06/21/2024 12:59:38 PM Interpretation: Performing Lab: Notes/Report: [facility] , White Blood Count 5.6 4.0-11.0 [...] 3/uL Performing Lab: see note ML - [facility] LB LIPASE Reviewed date:06/21/2024 12:59:38 PM Interpretation: Performing Lab: Notes/Report: [facility] , Lipase 78.0 16.0-77.0 U/L Performing Lab: see note ML - [facility] LB LIVER PROFILE Reviewed date:06/21/2024 12:59:38 PM Interpretation: Performing Lab: Notes/Report: [facility] , Bilirubin Total 0.6 0.2-1.0 mg/dL Bilirubin Direct 0.2 0.0-0.2 mg/dL Aspartate Amino Transferase 22 15-37 U/L Alanine Aminotransferase 27 14-59 U/L Alkaline Phosphatase 62 46-116 U/L Total Protein 6.7 6.4-8.2 g/dL Albumin Level 3.4 3.4-5.0 g/dL Globulin 3.3 Albumin Globulin Ratio 1.0 Performing Lab: see note ML - [facility] LB PROF CHEM 8 (BAS METB) Reviewed date:06/21/2024 12:59:38 PM Interpretation: Performing Lab: Notes/Report: [facility] , Sodium 137 136-145 mmol/L Potassium [...] 8.7 8.5-10.1 mg/dL Performing Lab: see note ML - [facility] HCG Qualitative* Reviewed date:06/21/2024 12:59:38 PM Interpretation: Performing Lab: Notes/Report: [facility] , HCG Qualitative NEGATIVE NEGATIVE Performing Lab: see note ML - [facility] LB ECG 12 lead Reviewed date:06/21/2024 08:02:33 PM Interpretation: Performing Lab: Notes/Report: Source Facility: [place] [address] [place] [address] Electrocardiograph Report Signed Patient: JUAN GARCIA MR#: [id number] : 1990 Acct:[id number] Age/Sex: 34 / F ADM Date: 06/21/24 Loc: ER Attending Dr: Ordering Physician: Leslie Terrazas M.D. 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 Measurements Intervals [place] Rate: 80 P: 54 NC: 140 QRS: 47 QRSD: 80 T: 46 QT: 384 QTc: 420 Interpretive Statements 1100 Sinus rhythm 9110 normal ECG Compared to ECG 09/23/2023 18:36:37 No significant changes Electronically Signed On 06-21-2024 18:14:03 EDT by JAMES HODGES M.D. Dictated By: JAMES HODGES Signed By: 06/21/24 1814 DD/ 1124 TD/TT: Carriage Dogger: [place] [address] Electrocardiograph Report Signed Patient: JUAN GARCIA MR#: [id number] : 1990 Acct:[id number] Age/Sex: 34 / F ADM Date: 06/21/24 Loc: ER Attending Dr: Ordering Physician: Leslie Terrazas M.D. 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 Measurements Intervals [place] Rate: 80 P: 54 NC: 140 QRS: 47 QRSD: 80 T: 46 QT: 384 QTc: 420 Interpretive Statements 1100 Sinus rhythm 9110 normal ECG Compared to ECG 09/23/2023 18:36:37 No significant changes Electronically Gemini d On 06-21-2024 18:14:03 EDT by JAMES HODGES M.D. Dictated By: JAMES HODGES Signed By: 06/21/24 1814 DD/ 1124 TD/TT: Carriage Dogger: CBC AUTO DIFF Reviewed date:08/02/2024 05:29:08 PM Interpretation: Performing Lab: Notes/Report: [facility] , White Blood Count 9.1 4.0-11.0 10 3/uL Red Blood Count 3.85 4.20-5.40 10 6/uL Hemoglobin 12.4 12.0-16.0 g/dL Hematocrit 36.1 36.0-48.0 % Mean Corpuscular Volume 93.8 81.0-99.0 fL Mean Corpuscular Hemoglobin 32.2 26.7-34.0 pg Mean Corpuscular HGB Conc 34.3 29.9-35.2 g/dL Red Cell Distribution Width 12.6 11.0-15.0 % Platelet Count 246 150-450 10 3/uL Mean Platelet Volume 10.4 9.5-13.5 fL Neutrophils Percent Auto 83.0 43.0-75.0 % Lymphocytes Percent Auto 12.7 20.5-60.0 % Monocytes Percent Auto 3.4 1.7-12.0 % Eosinophils Percent Auto 0.4 0.9-7.0 % Basophils Percent Auto 0.3 0.2-2.0 % Immature Granulocytes Pct Auto 0.2 0.0-0.5 % Neutrophils Absolute Auto 7.5 1.4-6.5 10 3/uL Lymphocytes Absolute Auto 1.2 1.2-3.8 10 3/uL Monocytes Absolute Auto 0.3 0.3-0.8 10 3/uL Eosinophils Absolute Auto 0.0 0.0-0.7 10 3/uL Basophils Absolute Auto 0.0 0.0-0.1 10 3/uL Immature Granulocytes Abs Auto 0.02 0.00-0.03 10 3/uL Performing Lab: see note ML - [facility] LB LACTATE or LACTIC ACID Reviewed date:08/02/2024 05:29:08 PM Interpretation: Performing Lab: Notes/Report: [facility] , Lactate/Lactic Acid 2.2 0.4-2.0 mmol/L RESULT S CALLED TO DR. DAMON Performing Lab: see note ML - [facility] LB LIPASE Reviewed date:08/02/2024 05:29:08 PM Interpretation: Performing Lab: Notes/Report: [facility] , Lipase 66.0 16.0-77.0 U/L Performing Lab: see note [facility] LB PROF 14(COMP METB) Reviewed date:08/02/2024 05:29:08 PM Interpretation: Performing Lab: Notes/Report: [facility] , Sodium 141 136-145 mmol/L Potassium 3.6 3.5-5.1 mmol/L Chloride 103 98-107 mmol/L Carbon Dioxide 26.3 21.0-32.0 mmol/L Anion Gap 15.3 Glucose 87 74-106 mg/dL Blood Urea Nitrogen 11.0 7.0-18.0 mg/dL Creatinine 0.72 0.55-1.02 mg/dL Estimated GFR ( Shelby >60 >=60 mL/min/1.73m 2 Estimated GFR (Non- Caroline >60 >=60 mL/min/1.73m 2 BUN Creatinine Ratio 15.3 Calcium 8.5 8.5-10.1 mg/dL Bilirubin Total 0.4 0.2-1.0 mg/dL Aspartate Amino Transferase 26 15-37 U/L Alanine Aminotransferase 24 14-59 U/L Alkaline Phosphatase 60 46-116 U/L Total Protein 6.6 6.4-8.2 g/dL Albumin Level 3.6 3.4-5.0 g/dL Globulin 3.0 Albumin Globulin Ratio 1.2 Performing Lab: see note - [facility] LB Troponin I High Sensitivity Reviewed date:08/02/2024 05:29:08 PM Interpretation: Performing Lab: Notes/Report: [facility] , Troponin I High Sensitivity <4.0 4.0-51.3 pg/mL CUT-OFF POINTS HAVE BEEN ESTABLISHED BASED ON THE FOURTH UNIVERSAL DEFINITION OF MYOCARDIAL INFARCTION. THE UPPER REFERENCE LIMIT (URL) OF TROPONIN, DEFINED THE 99TH PERCENTILE OF cTnI DISTRIBUTION IN A REFERENCE POPULATION, HAS BEEN CONFIRMED THE DECISION THRESHOLD FOR LA DIAGNOSIS. 99TH PERCENTILE = 51.4 PG/ML NOTE: HIGH-SENSITIVITY TROPONIN ASSAY IS NOT INTENDED TO BE USED IN ISOLATION BUT SHOULD BE INTERPRETED IN CONJUNCTION WITH OTHER DIAGNOSTIC AND CLINICAL INFORMATION. Performing Lab: see note ML - [facility] LB LAB TESTING Reviewed date:11/05/2023 08:17:18 AM Interpretation: Performing Lab: Notes/Report: [id number] Fatty Acid Profile, Essential [facility] , Miscellaneous Test COMMENT . Test Ordered: [id number] Fatty Acid Profile, Essential Interp, Fatty Acids Profile SP Normal Y8 Reference Range: . Normal fatty acid profile. Results reviewed and interpreted by Cash Jurado, PhD INTERPRETIVE INFORMATION: Fatty Acids Profile, Essential Ser/Plas This test does not screen for disorders of peroxisomal biogenesis/function. This test was developed and its performance characteristics determined by [facility]. It has not been cleared or approved [...] Acid, C18:2w6 2675 nmol/mL Y8 Reference Range: 7518-1324 a-Linolenic Acid, C18:3w3 67 nmol/mL Y8 Reference Range: 20-200 f-o-Totgmncaf C20:3w6 144 nmol/mL Y8 Reference Range: 45-340 g-Linolenic Acid, C18:3w6 37 nmol/mL Y8 Reference Range: 10-120 Gilmore Acid, C20:3w9 9 nmol/mL Y8 Reference Range: 1-35 Myristic Acid, C14:0 135 nmol/mL Y8 Reference Range: 20-520 Nervonic Acid, C24:1w9 143 nmol/mL Y8 Reference Range: 35-145 Oleic Acid, C18:1w9 1881 nmol/mL Y8 Reference Range: 740-3900 Palmitic Acid, C16:0 2563 nmol/mL Y8 Reference Range: 5645-1058 Palmitoleic Acid, C16:1w7 143 nmol/mL Y8 Reference [...] Reference Range: 4.5-15.0 EER Fatty Acids Profile, [place] See Note Y8 Reference Range: . Authorized individuals can access the GOQii Enhanced Report using the following link: [email or web address] . Y8 Reference Range: . Performed at: Y8 - [facility] [address] [id number] Capacity Manager: Kirt Murphy [facility], Phone: [phone] Performed at: - [facility] [address] [id number] Capacity Manager: Daron Almanza PhD, Phone: [phone] Performing Lab: see note - [facility] LB HCG Qualitative Urine Reviewed date:08/02/2024 05:29:08 PM Interpretation: Performing Lab: Notes/Report: [facility] , HCG Qualitative Urine* NEGATIVE NEGATIVE Performing Lab: see note - [facility] LB XR acute abdomen series Reviewed date:08/02/2024 05:29:08 PM Interpretation: Performing Lab: Notes/Report: Source Facility: [place] [address] XRay Report Signed Patient: JUAN GARCIA MR#: [id number] : 1990 Acct:[id number] Age/Sex: 34 / F ADM Date: 08/02/24 Loc: ER Attending Dr: Ordering Physician: Massimo Damon Date of Service: 08/02/24 Procedure(s): XR acute abdomen series Accession Number(s): [id number] cc: Britt Alas M.D.; Massimo Damon [place] [address] Patient Name: JUAN GARCIA MRN: [id number] date: 1990 Sex: F Assigned Patient Location: ER Current Patient Location: ER Accession/Order Number: [id number] Exam Date: 08/02/2024 09:12 Report Date: 08/02/2024 09:19 At the request of: MASSIMO DAMON MD Procedure: XR acute abdomen series ACUTE ABDOMEN SERIES WITH PA CHEST: CLINICAL HISTORY: abdomen pain, greatest at the right lower quadrant. Vomiting. COMPARISON: 01/12/2024 The chest film shows no acute cardiopulmonary findings. A central venous catheter seen on the right. Supine and upright views of the abdomen and pelvis show a suspected percutaneous feeding tube at the left upper quadrant. There is mild air within the colon, predominantly at the transverse colon. Mild stool is visualized at the ascending, descending and sigmoid colon. There is no suspected fecal impaction. A mildly distended small bowel loop is seen at the left upper quadrant with an air-fluid level. No other dilated small bowel is noted. No free air is seen. There are no soft tissue masses or suspect renal calculi. Hemostasis clips are present at the right upper quadrant. The bony structures are intact. XR/XR acute abdomen series IMPRESSION: NONSPECIFIC BOWEL GAS PATTERN WITH A SINGLE MILDLY DISTENDED SMALL BOWEL LOOP ON THE LEFT WITH AN AIR-FLUID LEVEL. EARLY OR PARTIAL OBSTRUCTION IS NOT COMPLETELY EXCLUDED. CORRELATION AND FOLLOW-UP WILL BE NEEDED. Impression dictated by: Maricruz Hutchinson M.D. 08/02/2024 9:19 AM Dictation Location: [place] [address] Electronically authenticated by: [id number] Y Date: 08/02/2024 09:19 Dictated By: Maricruz Hutchinson M.D. Signed By: 08/02/24921 DD/ 8 TD/TT: Carriage Dogger: [place] [address] XRay Report Signed Patient: JUAN GARCIA MR#: [id number] : 1990 Acct:[id number] Age/Sex: 34 / F ADM Date: 08/02/24 Loc: ER Attending Dr: Ordering Physician: Massimo Damon Date of Service: 08/02/24 Procedure(s): XR acu te abdomen series Accession Number(s): [id number] cc: Britt Alas M.D. ; Massimo Damon [place] [id number] Patient Name: JUAN GARCIA MRN: [id number] date: 1990 Sex: F Assigned Patient Location: ER Current Patient Loca tion: ER Accession/Order Numb er: [id number] Exam Date: 08/02/2024 09:12 Report Date: 08/02/2024 09:19 At the request of: MASSIMO DAMON MD Procedure: XR acute abdomen series ACUTE ABDOMEN SERIES WITH PA CHEST: CLINICAL HISTORY: ab domen pain, greatest at the right lower quadrant. Vomiting. COMPARISON: 01/12/2024 The chest film shows no acute cardiopulmonary findings. A central venous catheter seen on the right. Supine and upright v iews of the abdomen and pelvis show a suspected percutaneous feeding tube at the left upper quadrant. There is mild air within the colon, predominantly at the transverse colon. Mild stool is visualized at the ascending, descending and sigmoid colon. There is no suspected fecal impaction. A mildly distended small bowel loop is seen at the left upper quadrant with an air-fluid level. No other dilated small bowel is noted. No free air i s seen. There are no soft tissue masses or suspect renal calculi. Hemostasis clips are present at the right upper quadrant. The bony structures are intact. X R/XR acute abdomen series IMPRESSION: NONSPECIFIC BOWEL GA S PATTERN WITH A SINGLE MILDLY DISTENDED SMALL BOWEL LOOP ON THE LEFT WITH AN AIR-FLUID LEVEL. EARLY OR PARTIAL OBSTRUCTION IS NOT COMPLETELY EXCLUDED. CORRELATION AND FOLLOW-UP WILL BE NEEDED. Impression dictated by: Maricruz Hutchinson M.D. 08/02/2024 9:19 AM Dictation Location: [place] [address] Electronically authenticated by: [id number] Y Date: 08/02/2024 09:19 Dictated By: Maricruz Hutchinson M.D. Signed By: 08/02/2422 DD/ 8 TD/TT: Carriage [employer]ger: LACTATE or LACTIC ACID Reviewed date:08/02/2024 05:29:08 PM Interpretation: Performing Lab: Notes/Report: [facility] , Lactate/Lactic Acid 1.9 0.4-2.0 mmol/L Performing Lab: see note ML - [facility] LB CBC AUTO DIFF Reviewed date:08/15/2024 06:53:10 PM Interpretation: Performing Lab: Notes/Report: [facility] , White Blood Count 12.8 4.0-11.0 10 3/uL Red Blood Count 3.44 4.20-5.40 10 6/uL Hemoglobin 10.8 12.0-16.0 g/dL Hematocrit 31.4 36.0-48.0 % Mean Corpuscular Volume 91.3 81.0-99.0 fL Mean Corpuscular Hemoglobin 31.4 26.7-34.0 pg Mean Corpuscular HGB Conc 34.4 29.9-35.2 g/dL Red Cell Distribution Width 13.7 11.0-15.0 % Platelet Count 260 150-450 10 3/uL Mean Platelet Volume 10.0 9.5-13.5 fL Neutrophils Percent Auto 93.4 43.0-75.0 % Lymphocytes Percent Auto 4.7 20.5-60.0 % Monocytes Percent Auto 1.2 1.7-12.0 % Eosinophils Percent Auto 0.0 0.9-7.0 % Basophils Percent Auto 0.2 0.2-2.0 % Immature Granulocytes Pct Auto 0.5 0.0-0.5 % Neutrophils Absolute Auto 11.9 1.4-6.5 10 3/uL Lymphocytes Absolute Auto 0.6 1.2-3.8 10 3/uL Monocytes Absolute Auto 0.2 0.3-0.8 10 3/uL Eosinophils Absolute Auto 0.0 0.0-0.7 10 3/uL Basophils Absolute Auto 0.0 0.0-0.1 10 3/uL Immature Granulocytes Abs Auto 0.06 0.00-0.03 10 3/uL Performing Lab: see note ML - [facility] LB UA (CLEAN or CATCH) REGIONAL CLINICAL DIRECTOR or M ICRO IF IND. Reviewed date:08/15/2024 06:53:11 PM Interpretation: Performing Lab: Notes/Report: [facility] , Color Urine LT. YELLOW YELLOW Clarity Urine CLEAR CLEAR Specific Luck Urine 1.010 1.005-1.025 pH Urine 6.0 5.0-9.0 Protein Urine NEGATIVE NEG/TRACE mg/dL Glucose Urine UA NEGATIVE NEGATIVE mg/dL Bilirubin Urine NEGATIVE NEGATIVE Ketones Urine 15 NEGATIVE mg/dL Blood Urine NEGATIVE NEGATIVE Nitrite Urine NEGATIVE NEGATIVE Urobilinogen Urine 0.2 0.2-1.0 EU/dL Leukocyte Esterase Urine NEGATIVE NEGATIVE Urine Microscopic Indicated NO Performing Lab: see note ML - [facility] LB XR chest 2V Reviewed date:08/15/2024 06:53:11 PM Interpretation: Performing Lab: Notes/Report: Source Facility: [facility] [place] [address] [place] [address] XRay Report Signed Patient: JUAN GARCIA MR#: [id number] : 1990 Acct:[id number] Age/Sex: 34 / F ADM Date: 08/15/24 Loc: ER Attending Dr: Ordering Physician: Domenica Romeo Date of Service: 08/15/24 Procedure(s): XR chest 2V Accession Number(s): [id number] cc: Domenica Romeo; Britt Alas M.D. [place] [address] Patient Name: JUAN GARCIA MRN: [facility]:[id number] date: 1990 Sex: F Assigned Patient Location: ER Current Patient Location: ER Accession/Order Number: [id number] Exam Date: 08/15/2024 14:21 Report Date: 08/15/2024 14:22 At the request of: DOMENICA ROMEO [employer] CON[employer]ATIONIST Procedure: XR chest 2V Chest 2 views CLINICAL HISTORY: cough, septic work up COMPARISON: Chest 08/15/2023 FINDINGS: New right-sided catheter tip within the SVC. Heart is normal in size. Left midlung atelectasis no consolidation pneumothorax pleural effusion or free air. XR/XR chest 2V IMPRESSION: LEFT MIDLUNG ATELECTASIS. NO CONSOLIDATION TO SUGGEST PNEUMONIA. Impression dictated by: Marlene Hernández Jr.ORenetta 08/15/2024 2:22 PM Dictation Location: [place] [address] Electronically authenticated by: [id number] Y Date: 08/15/2024 14:22 Dictated By: Cornel Medel M.D. Signed By: 08/15/24 1424 DD/ 1422 TD/TT: Carriage Dogger: [place] [address] XRay Report Signed Patient: JUAN GARCIA MR#: [id number] : 1990 Acct:[id number] Age/Sex: 34 / F ADM Date: 08/15/24 Loc: ER Attending Dr: Ordering Physician: Domenica Romeo Date of Service: 08/15/24 Procedure(s): XR chest 2V Accession Number(s): [id number] cc: Domenica Romeo; Britt Alas M.D. The [address] [address] Patient Name: JUAN GARCIA MRN: [facility]:[id number] date: 1990 Sex: F Assigned Patient Location: ER Current Patient Loca tion: ER Accession/Order Numb er: [id number] Exam Date: 08/15/2024 14:21 Report Date: 08/15/2024 14:22 At the request of: DOMENICA ROMEO [employer] CON[employer]IST Procedure: XR chest 2V Chest 2 views CLINICAL HISTORY: co ugh, septic work up COMPARISON: Chest 08/15/2023 FINDINGS: New right-sided cath eter tip within the SVC. Heart is normal in size. Left midlung atelectasis no consolidation pneumothorax pleural effusion or free air. X R/XR chest 2V IMPRESSION: LEFT MIDLUNG ATELECT ASIS. NO CONSOLIDATION TO SUGGEST PNEUMONIA. Impression dictated by: Cornel Medel Jr., DRenettaORenetta 08/15/2024 2:22 PM Dictation Location: [place] [address] Electronically authenticated by: [id number] Y Date: 08/15/2024 14:22 Dictated By: Cornel Medel M.D. Signed By: 08/15/244 DD/ 21 TD/TT: Carriage Dogger: AMYLASE Reviewed date:11/07/2023 09:01:52 PM Interpretation: Performing Lab: Notes/Report: [facility] , Amylase 36 25-115 U/L Performing Lab: see note ML - [facility] LB CBC AUTO DIFF Reviewed date:11/07/2023 09:01:52 PM Interpretation: Performing Lab: Notes/Report: [facility] , White Blood Count 3.9 4.0-11.0 [...] 3/uL Performing Lab: see note ML - [facility] LIPASE Reviewed date:11/07/2023 09:01:52 PM Interpretation: Performing Lab: Notes/Report: [facility] , Lipase 28.0 16.0-77.0 U/L Performing Lab: see note ML - [facility] LB LIVER PROFILE Reviewed date:11/07/2023 09:01:52 PM Interpretation: Performing Lab: Notes/Report: [facility] , Bilirubin Total 0.4 0.2-1.0 mg/dL Bilirubin Direct 0.1 0.0-0.2 mg/dL Aspartate Amino Transferase 27 15-37 U/L Alanine Aminotransferase 23 14-59 U/L Alkaline Phosphatase 64 46-116 U/L Total Protein 6.4 6.4-8.2 g/dL Albumin Level 3.6 3.4-5.0 g/dL Globulin 2.8 Albumin Globulin Ratio 1.3 Performing Lab: see note ML - [facility] LB PROF CHEM 8 (BAS METB) Reviewed date:11/07/2023 09:01:52 PM Interpretation: Performing Lab: Notes/Report: [facility] , Sodium 134 136-145 mmol/L Potassium 3.5 3.5-5.1 mmol/L Chloride 101 98-107 mmol/L Carbon Dioxide 28.9 21.0-32.0 mmol/L Anion Gap 7.6 Glucose 97 74-106 mg/dL Blood Urea Nitrogen 9.0 7.0-18.0 mg/dL Creatinine 0.81 0.55-1.02 mg/dL Estimated GFR ( [place] >60 >=60 Estimated GFR (Non- Caroline >60 >=60 BUN Creatinine Ratio 11.1 Calcium 8.2 8.5-10.1 mg/dL Performing Lab: see note ML - [facility] LB CBC AUTO DIFF Reviewed date:11/11/2023 03:26:07 PM Interpretation: Performing Lab: Notes/Report: [facility] , White Blood Count 3.5 4.0-11.0 [...] Performing Lab: see note ML - [facility] LB CBC AUTO DIFF Reviewed date:11/20/2023 08:26:20 PM Interpretation: Performing Lab: Notes/Report: [facility] , White Blood Count 3.7 4.0-11.0 [...] Performing Lab: see note ML - [facility] LB PROF 14(COMP METB) Reviewed date:11/20/2023 08:26:20 PM Interpretation: Performing Lab: Notes/Report: [facility] , Sodium 138 136-145 mmol/L Potassium [...] Ratio 1.1 Performing Lab: see note - [facility] LB Anaerobic Culture Reviewed date:11/25/2023 07:16:42 PM Interpretation: [...] Tobramycin S F Aerobic Culture Performed at: [facility] Aerobic Culture Organism: Gram negative jeffery : O:GNR Isolated O:PSAV Isolated Organism: 2.2 Antibiotic Interpretation SANDHYA Status Amikacin Amikacin S F Cefepime Cefepime S F Ceftazidime Ceftazidime S F Gentamicin Gentamicin S F Imipenem Imipenem I F Levofloxacin Levofloxacin R F Meropenem Meropenem S F Piperacillin Piperacillin S F Ticarcillin Ticarcillin S F Tobramycin Tobramycin S F [facility] [address] [place], [place] [id number] Aerobic Culture Organism: Gram negative jeffery : O:GNR Isolated O:PSAV Isolated Organism: 2.2 Antibiotic Interpretation SANDHYA Status Amikacin Amikacin S F Cefepime Cefepime S F Ceftazidime Ceftazidime S F Gentamicin Gentamicin S F Imipenem Imipenem I F Levofloxacin Levofloxacin R F Meropenem Meropenem S F Piperacillin Piperacillin S F Ticarcillin Ticarcillin S F Tobramycin Tobramycin S F Aerobic Culture Capacity Manager: Thierno Almanza PhD, Phone: [phone] Aerobic Culture Organism: Gram negative jeffery : [...] LC - [facility] LB 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 REPORT - 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 Test Ordered: [id number] Fatty Acid Profile, Essential Interp, Fatty Acids Profile SP Normal Y8 Reference Range: . Normal fatty acid profile. Results reviewed and interpreted by Doris Odonnell, PhD, [facility] INTERPRETIVE INFORMATION: Fatty Acids Profile, Essential Ser/Plas This test does not screen for disorders of peroxisomal biogenesis/function. This test was developed and its performance characteristics determined by [employer]. It has not been cleared or approved [...] Acid, C18:2w6 3001 nmol/mL Y8 Reference Range: 5897-2543 a-Linolenic Acid, C18:3w3 71 nmol/mL Y8 Reference Range: 20-200 w-a-Lxmzfsiyz C20:3w6 198 nmol/mL Y8 Reference Range: 45-340 g-Linolenic Acid, C18:3w6 104 nmol/mL Y8 Reference Range: 10-120 Gilmore Acid, C20:3w9 27 nmol/mL Y8 Reference Range: 1-35 Myristic Acid, C14:0 123 nmol/mL Y8 Reference Range: 20-520 Nervonic Acid, C24:1w9 116 nmol/mL Y8 Reference Range: 35-145 Oleic Acid, C18:1w9 2918 nmol/mL Y8 Reference Range: 740-3900 Palmitic Acid, C16:0 3079 nmol/mL Y8 Reference Range: 2475-6598 Palmitoleic Acid, C16:1w7 218 nmol/mL Y8 Reference [...] Reference Range: 4.5-15.0 EER Fatty Acids Profile, [place] See Note Y8 Reference Range: . Authorized individuals can access the GOQii Enhanced Report using the following link: [email or web address] [email or web address] . Y8 Reference Range: . Performed at: Y - [employer] [address] [place] [id number] Capacity Manager: Kirt Murphy [facility], Phone: [phone] Performed at: [facility] [id number] Capacity Manager: Daron Almanza PhD, Phone: [phone] Performing Lab: see note - [facility] LB MAGNESIUM Reviewed date:12/22/2023 09:03:29 PM Interpretation: Performing Lab: Notes/Report: HOME HEALTH ADROP OFF [facility] , Magnesium 2.0 1.8-2.4 mg/dL Performing Lab: see note ML - [facility] LB PHOSPHORUS Reviewed date:12/22/2023 09:03:29 PM Interpretation: Performing Lab: Notes/Report: [facility] HEALTH ADROP OFF [facility] , Phosphorus 2.0 2.6-4.7 mg/dL Performing Lab: see note ML - [facility] LB PROF 14(COMP METB) Reviewed date:12/22/2023 09:03:29 PM Interpretation: Performing Lab: Notes/Report: [facility] HEALTH ADROP OFF [facility] , Sodium 142 136-145 mmol/L Potassium [...] 1.2 Performing Lab: see note ML - [facility] LB CBC AUTO DIFF Reviewed date:01/06/2024 01:36:15 PM Interpretation: Performing Lab: Notes/Report: [facility] , White Blood Count 5.6 4.0-11.0 [...] 10 3/uL Performing Lab: see note - [facility] LB Testosterone Reviewed date:01/11/2024 02:35:19 PM Interpretation: Performing Lab: Notes/Report: [facility] , Testosterone <3 8-60 ng/dL Performed at: - [facility] [address] [id number] Capacity Manager: Daron Almanza PhD, Phone: [phone] Performing Lab: see note - [facility] LB CBC AUTO DIFF Reviewed date:01/20/2024 03:46:41 PM Interpretation: Performing Lab: Notes/Report: [facility] , White Blood Count 5.7 4.0-11.0 [...] Performing Lab: see note ML - [facility] LB MAGNESIUM Reviewed date:01/20/2024 03:46:41 PM Interpretation: Performing Lab: Notes/Report: [facility] DROP OFF [facility] , Magnesium 1.7 1.8-2.4 mg/dL Performing Lab: see note - [facility] LB PHOSPHORUS Reviewed date:01/20/2024 03:46:41 PM Interpretation: Performing Lab: Notes/Report: [facility] DR[facility] , Phosphorus 3.5 2.6-4.7 mg/dL Performing Lab: see note - [facility] LB PROF 14(COMP METB) Reviewed date:01/20/2024 03:46:41 PM Interpretation: Performing Lab: Notes/Report: [facility] DR[facility] , Sodium 143 136-145 mmol/L Potassium [...] 1.3 Performing Lab: see note ML - [facility] LB CBC AUTO DIFF Reviewed date:01/31/2024 02:12:13 PM Interpretation: Performing Lab: Notes/Report: [facility] , White Blood Count 5.3 4.0-11.0 [...] Performing Lab: see note ML - [facility] LB FERRITIN Reviewed date:01/31/2024 02:12:13 PM Interpretation: Performing Lab: Notes/Report: [facility] , Ferritin 98.0 8.0-252.0 ng/mL Performing Lab: see note ML - [facility] LB IRON AND TIBC Reviewed date:01/31/2024 02:12:13 PM Interpretation: Performing Lab: Notes/Report: [facility] DR[facility] , Iron 101.0 50.0-170.0 ug/dL Total Iron Binding Capacity 257.0 250.0-450.0 ug/dL Percent Iron Saturation 39.3 Performing Lab: see note ML - [facility] LB MAGNESIUM Reviewed date:01/31/2024 02:12:13 PM Interpretation: Performing Lab: Notes/Report: [facility] , Magnesium 1.6 1.8-2.4 mg/dL Performing Lab: see note ML - [facility] LB PHOSPHORUS Reviewed date:01/31/2024 02:12:13 PM Interpretation: Performing Lab: Notes/Report: [facility] , Phosphorus 3.7 2.6-4.7 mg/dL Performing Lab: see note [facility] LB PROF 14(COMP METB) Reviewed date:01/31/2024 02:12:13 PM Interpretation: Performing Lab: Notes/Report: [facility] , Sodium 141 136-145 mmol/L Potassium [...] 1.1 Performing Lab: see note ML - [facility] LB Transferrin Reviewed date:02/01/2024 12:16:29 PM Interpretation: Performing Lab: Notes/Report: [facility] , Transferrin 210 192-364 mg/dL Performed at: - [facility] [address] [id number] Capacity Manager: Daron Almanza PhD, Phone: [phone] Performing Lab: see note - [facility] LB CBC AUTO DIFF Reviewed date:07/22/2024 05:16:36 PM Interpretation: Performing Lab: Notes/Report: [facility] , White Blood Count 6.4 4.0-11.0 10 3/uL Red Blood Count 3.63 4.20-5.40 10 6/uL Hemoglobin 11.8 12.0-16.0 g/dL Hematocrit 34.3 36.0-48.0 % Mean Corpuscular Volume 94.5 81.0-99.0 fL Mean Corpuscular Hemoglobin 32.5 26.7-34.0 pg Mean Corpuscular HGB Conc 34.4 29.9-35.2 g/dL Red Cell Distribution Width 12.7 11.0-15.0 % Platelet Count 275 150-450 10 3/uL Mean Platelet Volume 10.5 9.5-13.5 fL Neutrophils Percent Auto 72.6 43.0-75.0 % Lymphocytes Percent Auto 21.7 20.5-60.0 % Monocytes Percent Auto 5.0 1.7-12.0 % Eosinophils Percent Auto 0.2 0.9-7.0 % Basophils Percent Auto 0.3 0.2-2.0 % Immature Granulocytes Pct Auto 0.2 0.0-0.5 % Neutrophils Absolute Auto 4.7 1.4-6.5 10 3/uL Lymphocytes Absolute Auto 1.4 1.2-3.8 10 3/uL Monocytes Absolute Auto 0.3 0.3-0.8 10 3/uL Eosinophils Absolute Auto 0.0 0.0-0.7 10 3/uL Basophils Absolute Auto 0.0 0.0-0.1 10 3/uL Immature Granulocytes Abs Auto 0.01 0.00-0.03 10 3/uL Performing Lab: see note - [facility] LB PROF CHEM 8 (BAS METB) Reviewed date:07/22/2024 05:16:36 PM Interpretation: Performing Lab: Notes/Report: [facility] , Sodium 144 136-145 mmol/L Potassium 3.9 3.5-5.1 mmol/L Chloride 107 98-107 mmol/L Carbon Dioxide 25.1 21.0-32.0 mmol/L Anion Gap 15.8 Glucose 90 74-106 mg/dL Blood Urea Nitrogen 8.0 7.0-18.0 mg/dL Creatinine 0.68 0.55-1.02 mg/dL Estimated GFR ( Shelby >60 >=60 mL/min/1.73m 2 Estimated GFR (Non- Caroline >60 >=60 mL/min/1.73m 2 BUN Creatinine Ratio 11.8 Calcium 8.7 8.5-10.1 mg/dL Performing Lab: see note ML - [facility] LB CBC AUTO DIFF Reviewed date:12/22/2023 09:03:29 PM Interpretation: Performing Lab: Notes/Report: HOME HEALTH ADROP OFF [facility] , White Blood Count 4.9 4.0-11.0 [...] Performing Lab: see note ML - [facility] LB Reason For Referral Diagnosis 1 Hypoglycemia (E16.2) Referral Organization [facility] Referring Provider First Name Brandyn Referring Provider Last Name Evette Referring Provider Speciality [facility] daniel Referred Provider Que Draper Referred Provider Specialty Endocrinolog y Referral Priority Routine Medications Medication SIG (Take, Route, Frequency, Duration) Notes Start Date End Date Status Levothyroxine Sodium 75 MCG 1 tablet in the morning on an empty stomach Orally Once a day for 30 days 06/23/2023 Active Lexapro 20 MG 1 tablet Orally Once a day 06/23/2023 Active Lancets 30G - Use 1 lancet E11.9 once daily for 90 03/22/2024 Active Methocarbamol 500 MG TAKE 1.5 TABLETS BY MOUTH EVERY 6 HRS FOR 30 DAYS for 30 Active Mupirocin 2 % 1 application Externally Twice a day for 5 days 07/21/2024 Active Liothyronine Sodium 5 MCG 1 tablet on an empty stomach Orally Once a day for 30 days 06/23/2023 Active Ttsadskqto-QMOJ-Qtzfoay e 50-325-40 MG TAKE 1 TABLET BY MOUTH EVERY 4 HOURS NEEDED FOR HEADACHE for 4 PRN 04/21/2024 Active Ozempic (0.25 or 0.5 MG/DOSE) 2 MG/3ML Inject 0.25mg Subcutaneous once weekly for 56 days 02/07/2024 Active Ondansetron 4 MG 1-2 tablet on the tongue and allow to dissolve Orally q4h for 30 days As needed 09/29/2023 Active Zaggora 2 w/Device USE TO MONITOR BLOOD GLUCOSE LEVELS DAILY for 30 Active Metoclopramide HCl 10 MG 1 tablet before meals Orally achs for 30 days 08/07/2024 Active Compazine 10 MG 1 tablet as needed Orally Three times a day 12/22/2023 Active fentaNYL 25 MCG/HR 1 patch to skin Transdermal Q3d for 30 days 08/15/2024 Active dexAMETHasone 1 MG 1 tablet Orally daily for 30 days 04/19/2024 Active Ferrous Sulfate 325 (65 Fe) MG 1 tablet Orally twice a day for 30 days 07/19/2023 Active FreeStyle Hunter 3 [place] Use to monitor glucose levels multiple times daily DX Diabetes with hypoglycemic episodes for 365 days 10/14/2023 Active Hydrocortisone PRN- Injection Active hydrOXYzine HCl 25 MG Oral for 30 Days Active Prucalopride Succinate 2 MG Oral for 30 Days Active FreeStyle Hunter 3 Sensor Use to monitor glucose multiple times daily DX Diabetes with hypoglycemia episodes- change once every 10 days for 30 days 10/14/2023 Active HYDROcodone-Acetaminoph en 5-325 MG 1 - 2 tablet as needed - max 6/day Orally every 6 hrs for 14 days K56.600 K56.600 08/04/2024 Active Topamax 100 MG 1 tablet Orally BID for 30 days 06/23/2023 Active Remeron 30 MG 2 tablet at bedtime Orally Once a day 06/23/2023 Active Test Strips - Test sugar Once daily for 90 days Dx: E11.9 03/22/2024 Active traMADol HCl 50 MG 1 tablet as needed Orally qid for 30 days As needed PRN 07/31/2024 Active traZODone HCl 100 MG 1 tablet Orally bedtime 11/18/2023 Active Social History Tobacco Use: Social History [...] Status W/U Status Risk Notes Problem Gastroparesis (406400223) Gastroparesis (K31.84) Active confirmed Problem Postgastric surgery syndrome (33187546) 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) Active confirmed Problem Asthma (727058131) Asthma (J45.909) Active conf irmed Problem Gastroesophageal reflux disease (649492147) GERD (gastroesophageal reflux disease) (K21.9) Active confirmed Problem Hypothyroidism (10664179) Hypothyroidism (E03.9) Active confirmed Problem Anxiety (91286013) Anxiety (F41.9) Active confi rmed Problem Migraine (15409884) Migraine (G43.909) Active confirmed Problem Irritable bowel syndrome (26275512) IBS (irritable bowel syndrome) (K58.9) Active confirmed Problem Generalized anxiety disorder (68100745) EDWAR (generalized anxiety disorder) (F41.1) Active confirmed Problem Lumbar radiculopathy (579954589) Lumbar radiculopathy (M54.16) Active confirmed Problem Allergic conjunctivitis (387577402) Allergic conjunctivitis (H10.10) Active confirmed Problem Acquired hypothyroidism (430511528) Acquired hypothyroidism (E03.9) Active confirmed Problem Hypoglycemia (374774264) Hypoglycemia (E16.2) Active confirmed Problem Anxiety disorder (179119755) Anxiety disorder (F41.9) Active confirmed Problem Neutropenia (294217061) Neutropenia (D70.9) Active confirmed Problem Leukocytosis (947815764) Elevated white blood cell count (D72.829) Active confirmed Problem Edema (642973979) Facial edema (R60.0) Active confirmed Problem Gastrostomy present (769448429) PEG (percutaneous endoscopic gastrostomy) status (Z93.1) Active confirmed Problem Severe protein calorie malnutrition (380978937) Severe protein-calorie malnutrition (E43) Active confirmed Problem Disorder of endocrine system (149737943) 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.9) Active confirmed Problem Malnutrition of moderate degree (Baxter: 60% to less than 75% of standard weight) (50558860) Moderate malnutrition (E44.0) Active confirmed Problem Gastrostomy present (354946509) Feeding by G-tube (Z93.1) Active confirmed Problem Gastrostomy present (654382910) Gastrostomy in place (Z93.1) Active confirmed Problem Jejunostomy tube, device (physical object) (558790165) Jejunostomy tube present (Z93.4) Active confirmed Problem [id number] Partial intestinal obstruction, unspecified as to cause (K56.600) Active confirmed Vital Signs Temperature 98.9 degrees Fahrenheit 08/23/2023 Blood pressure diastolic 72 mm Hg 08/07/2024 Height 66 in 08/07/2024 Blood pressure systolic 116 mm Hg 08/07/2024 Weight 197.0 lbs 08/07/2024 BMI 31.79 kg/m2 08/07/2024 Encounters Encounter Location Date Provider Diagnosis [facility] [address] [facility] [place] [address] 08/15/2024 Brandyn Hoy Partial intestinal obstruction, unspecified as to cause K56.600 [facility] [address] [facility] [place] [address] 08/15/2024 Brandyn Hoy [facility] [address] [place] [facility] [place] [address] 08/15/2024 Brandyn Hoy [facility] [address] [place] [place] [address] 07/21/2024 Brandyn Hoy Partial intestinal obstruction, unspecified as to cause K56.600 and GERD (gastroesophageal reflux disease) K21.9 [facility] [address] [place] [place] [address] 07/21/2024 Brandyn Hoy [facility] [address] [place] [place] [address] 07/31/2024 Brandyn Hoy [facility] [address] [place] [address] 08/04/2024 Brandyn Hoy GERD (gastroesophage al reflux disease) K21.9 [facility] [address] [place] [place] [address] 08/09/2024 Brandyn Hoy Elevated white blood cell count D72.829 [facility] [address] [place] [place] [address] 08/10/2024 Brandyn Hoy [facility] [address] [facility] [place] [address] 06/05/2024 Brandyn Hoy [facility] [address] [facility] [place] [address] 06/12/2024 Brandyn Hoy GERD (gastroesophage al reflux disease) K21.9 [facility] [address] [facility] [place] [address] 06/23/2024 Brandyn Hoy Partial intestinal obstruction, unspecified as to cause K56.600 and GERD (gastroesophageal reflux disease) K21.9 [facility] [address] [facility] [place] [address] 07/03/2024 Brandyn Hoy [facility] [address] [place] [place] [address] 07/06/2024 Brandyn Hoy [facility] [address] [facility] [place] [address] 07/07/2024 Brandyn Hoy GERD (gastroesophage al reflux disease) K21.9 [facility] [address] [facility] [place] [address] 05/04/2024 Brandyn Hoy GERD (gastroesophage al reflux disease) K21.9 [facility] [address] [facility] [place] [address] 05/10/2024 Brandyn Hoy [facility] [address] [place] [address] 05/17/2024 Brandyn Hoy GERD (gastroesophage al reflux disease) K21.9 [facility] [address] [place] [address] 05/22/2024 Brandyn Hoy [facility] [address] [place] [place] [address] 05/26/2024 Brandyn Hoy Partial intestinal obstruction, unspecified as to cause K56.600 [facility] [address] [place] [address] 05/30/2024 Brandyn Hoy GERD (gastroesophage al reflux disease) K21.9 [facility] [address] [place] [place] [address] 04/18/2024 Brandyn Hoy Hypoglycemia E16.2 [facility] [address] [place] [address] 04/21/2024 Brandyn Hoy GERD (gastroesophage al reflux disease) K21.9 [facility] [address] [place] [address] 04/21/2024 Brandyn Hoy [facility] [address] [place] [place] [address] 04/27/2024 Brandyn Hoy Partial intestinal obstruction, unspecified as to cause K56.600 [facility] [address] [place] [address] 04/28/2024 Brandyn Hoy [facility] [address] [facility] [place] [address] 05/02/2024 Brandyn Hoy [facility] [address] [facility] [place] [address] 04/04/2024 Brandyn Hoy Partial intestinal obstruction, unspecified as to cause K56.600 [facility] [address] [place] [place] [address] 04/06/2024 Brandyn Hoy Partial intestinal obstruction, unspecified as to cause K56.600 [facility] [address] [facility] [place] [address] 04/07/2024 Brandyn Hoy GERD (gastroesophage al reflux disease) K21.9 [facility] [address] [place] [place] [address] 04/10/2024 Brandyn Hoy [facility] [address] [place] [place] [address] 04/13/2024 Brandyn Hoy [facility] [address] [place] [place] [address] 04/18/2024 Brandny y [facility] [address] [place] [address] 03/22/2024 Brandyn Hoy [facility] [address] [facility] [place] [address] 03/24/2024 Brandyn Hoy GERD (gastroesophage al reflux disease) K21.9 [facility] [address] [facility] [place] [address] 03/27/2024 Brandyn Hoy GERD (gastroesophage al reflux disease) K21.9 [facility] [address] [place] [address] 03/29/2024 Bradnyn Hoy [facility] [address] [facility] [place] [address] 2024 Brandyn Hoy Partial intestinal obstruction, unspecified as to cause K56.600 [facility] [address] [place] [address] 04/04/2024 Brandyn Hoy Partial intestinal obstruction, unspecified as to cause K56.[address] [facility] [address] [place] [address] 03/03/2024 Brandyn Hoy [facility] [address] [place] [address] 03/06/2024 Brandyn Hoy Partial intestinal obstruction, unspecified as to cause K56.600 [facility] [address] [facility] [place] [address] 03/06/2024 Brandyn Hoy [facility] [address] [place] [place] [address] 03/13/2024 Brandyn Hoy [facility] [address] [place] [address] 03/13/2024 Brandyn Hoy GERD (gastroesophage al reflux disease) K21.9 [facility] [address] [place] [address] 03/21/2024 Brandyn Hoy [facility] [address] [facility] [place] [address] 02/07/2024 Brandyn Hoy GERD (gastroesophage al reflux disease) K21.9 [facility] [address] [place] [address] 02/07/2024 Brandyn Hoy [facility] [address] [place] [address] 02/11/2024 Brandyn Hoy [facility] [address] [place] [address] 02/14/2024 Brandyn Hoy [facility] [address] [place] [address] 02/21/2024 Brandyn Hoy GERD (gastroesophage al reflux disease) K21.9 [facility] [address] [place] [address] 03/03/2024 Brandyn Hoy GERD (gastroesophage al reflux disease) K21.9 [facility] [address] [place] [address] 01/26/2024 Brandyn Hoy GERD (gastroesophage al reflux disease) K21.9 [facility] [address] [place] [address] 01/31/2024 Brandyn Hoy [facility] [address] [place] [address] 01/31/2024 Brandyn Hoy [facility] [address] [facility] [place] [address] 02/02/2024 Brandyn Hoy [facility] [address] [place] [address] 02/04/2024 Brandyn Galoy [facility] [address] [place] [place] [address] 02/04/2024 Brandyn Hoy Partial intestinal obstruction, unspecified as to cause K56.600 [facility] [address] [facility] [place] [address] 01/10/2024 Brandyn Hoy GERD (gastroesophage al reflux disease) K21.9 [facility] [address] [place] [place] [address] 01/11/2024 Brandyn Rosenthaly [facility] [address] [place] [address] 01/18/2024 Brandyn Hoy [facility] [address] [facility] [place] [address] 01/18/2024 Brandyn Hoy Anxiety F41.9 [facility] [address] [facility] [place] [address] 01/19/2024 Brandyn Rosenthaly [facility] [address] [place] [place] [address] 01/26/2024 Brandyn Rosenthaly [facility] [address] [place] [facility] [place] [address] 12/27/2023 Brandyn Rosenthaly [facility] [address] [place] [place] [address] 12/30/2023 Brandyn Rosenthaly [facility] [address] [place] [address] 12/31/2023 Brandyn Rosenthaly [facility] [address] [facility] [place] [address] 01/03/2024 Brandyn Rosenthaly [facility] [address] [facility] [place] [address] 01/03/2024 Brandyn Hoy Partial intestinal obstruction, unspecified as to cause K56.600 [facility] [address] [facility] [place] [address] 01/05/2024 Brandyn Rosenthaly [facility] [address] [facility] [place] [address] 11/30/2023 Brandyn Rosenthaly Intractable abdomina l pain R10.9 and Abdominal pain R10.9 [facility] [address] [facility] [place] [address] 12/06/2023 Brandyn Rosenthaly [facility] [address] [facility] [place] [address] 12/06/2023 Brandyn Rosenthaly [facility] [address] [facility] [place] [address] 12/20/2023 Brandyn Rosenthaly [facility] [facility] [address] [facility] [place] [address] 12/22/2023 Brandyn Rosenthaly [facility] [address] [facility] [place] [address] 12/23/2023 Brandyn Rosenthaly Testosterone deficie ncy E29.1 [facility] [address] [facility] [address] [place] [address] 11/09/2023 Brandyn Rosenthaly [facility] [address] [facility] [address] [place] [address] 11/22/2023 Brandyn Rosenthaly Allergic conjunctivi tis H10.10 [facility] [address] [facility] [place] [address] 11/23/2023 Brandyn Hoy Jejunostomy tube pre sent Z93.4 [facility] [address] [facility] [place] [address] 11/26/2023 Brandyn Hoy Low testosterone lev el in female R79.89 [facility] [address] [facility] [place] [address] 11/29/2023 Brandyn Hoy [facility] [address] [facility] [place] [address] 11/30/2023 Brandyn Hoy [facility] [address] [facility] [place] [address] 11/04/2023 Brandyn Hoy Intractable abdomina l pain R10.9 and Asthma J45.909 [facility] [address] [facility] [place] [address] 11/04/2023 Brandyn Hoy Partial intestinal obstruction, unspecified as to cause K56.600 [facility] [address] [facility] [place] [address] 11/04/2023 Brandyn Hoy [facility] [address] [facility] [place] [address] 11/05/2023 Brandyn Galoy [facility] [address] [facility] [place] [address] 11/08/2023 Brandyn Hoy [facility] [address] [place] [facility] [place] [address] 11/09/2023 Brandyn Hoy Partial intestinal obstruction, unspecified as to cause K56.600 [facility] [address] [place] [address] 10/19/2023 Brandyn Hoy [facility] [address] [facility] [place] [address] 10/19/2023 Brandyn Hoy [facility] [address] [facility] [place] [address] 10/27/2023 Brandyn Hoy [facility] [address] [facility] [place] [address] 10/28/2023 Brandyn Galoy [facility] [address] [facility] [address] 11/02/2023 Brandyn Hoy [facility] [address] [place] [facility] [place] [address] 11/03/2023 Brandyn Hoy [facility] [address] [place] [place] [address] 09/29/2023 Brandyn Hoy [facility] [address] [place] [place] [address] 09/29/2023 Brandyn Hoy [facility] [address] [place] [place] [address] 10/13/2023 Brandyn Hoy IBS (irritable bowel syndrome) K58.9 and Partial intestinal obstruction, unspecified as to cause K56.600 [facility] [address] [place] [place] [address] 10/14/2023 Brandyn Hoy [facility] [address] [place] [address] 10/19/2023 Brandyn Hoy Partial intestinal obstruction, unspecified as to cause K56.600 [facility] [address] [place] [place] [address] 10/19/2023 Brandyn Hoy [facility] [address] [place] [place] [address] 09/06/2023 Brandyn Hoy Allergic conjunctivi tis H10.10 [facility] [address] [place] [place] [address] 09/06/2023 Brandyn Hoy Right upper quadrant pain R10.11 [facility] [address] [place] [place] [address] 09/07/2023 Brandyn Hoy [facility] [address] [place] [place] [address] 09/08/2023 Brandyn Hoy [facility] [address] [place] [place] [address] 09/08/2023 Brandyn Hoy Gross hematuria R31. 0 [facility] [address] [place] [place] [address] 09/12/2023 Brandyn Hoy [facility] [address] [place] [place] [address] 08/20/2023 BRITT ALAS [facility] [address] [place] [address] 08/20/2023 BRITT ALAS [facility] [address] [place] [address] 08/25/2023 BRITT ALAS [facility] [address] [place] [address] 08/29/2023 Brandyn Alas [facility] [address] [place] [address] 08/30/2023 Brandyn Alas [facility] [address] [place] [address] 09/05/2023 Brandyn Alas Elevated liver enzym es R74.8 [facility] [address] [place] [address] 01/03/2024 Brandyn Hoy GERD (gastroesophage al reflux disease) K21.9 ; Severe protein-calorie malnutrition E43 ; Hypothyroidism E03.9 and Partial intestinal obstruction, unspecified as to cause K56.600 [facility] [address] [place] [address] 04/10/2024 Brandyn Hoy Hypoglycemia E16.2 [facility] [address] [place] [address] 04/19/2024 Brandyn Hoy Hypoglycemia E16.2 [facility] [address] [place] [address] 08/07/2024 Brandyn Hoy GERD (gastroesophage al reflux disease) K21.9 ; Severe protein-calorie malnutrition E43 ; PEG (percutaneous endoscopic gastrostomy) status Z93.1 and Acquired hypothyroidism E03.9 [facility] [address] [place] [address] 11/18/2023 Brandyn Hoy Asthma J45.909 ; KEZIA D (gastroesophageal reflux disease) K21.9 ; IBS (irritable bowel syndrome) K58.9 and Hypoglycemia E16.2 [facility] [address] [place] [address] 01/10/2024 Brandyn Hoy GERD (gastroesophage al reflux disease) K21.9 ; Hypothyroidism E03.9 ; Anxiety F41.9 and IBS (irritable bowel syndrome) K58.9 [facility] [address] [place] [address] 03/21/2024 Brandyn Hoy GERD (gastroesophage al reflux disease) K21.9 and Hypoglycemia E16.2 [facility] [address] [place] [address] 08/23/2023 Brandyn Hoy Allergic conjunctivi tis H10.10 and Facial edema R60.0 Assessments Encounter Date Diagnosis (ICD Code) Assessment Notes Treatment Notes Treatment Clinical Notes Section Notes 09/05/2023 Elevated liver enzymes (ICD-10 - R74.8) [...] unspecified as to cause (ICD-10 - K56.600) 08/23/2023 Allergic conjunctivitis (ICD-10 - H10.10) if [...] - K21.9) 01/10/2024 Hypothyroidism (ICD-10 - E03.9) 03/21/2024 GERD (gastroesophageal reflux disease) (ICD-10 - K21.9) 03/21/2024 Hypoglycemia (ICD-10 - E16.2) 04/10/2024 Hypoglycemia (ICD-10 - E16.2) 04/19/2024 Hypoglycemia (ICD-10 - E16.2) 08/07/2024 GERD (gastroesophageal reflux disease) (ICD-10 - K21.9) 08/07/2024 Severe protein-calorie malnutrition (ICD-10 - E43) 07/07/2024 GERD (gastroesophageal reflux disease) (ICD-10 - K21.9) 07/21/2024 Partial intestinal obstruction, unspecified as to cause (ICD-10 - K56.600) 08/04/2024 GERD (gastroesophageal reflux disease) (ICD-10 - K21.9) 08/09/2024 Elevated white blood cell count (ICD-10 - D72.829) 08/15/2024 Partial intestinal obstruction, unspecified as to cause (ICD-10 - K56.600) 07/21/2024 GERD (gastroesophageal reflux disease) (ICD-10 - K21.9) 08/07/2024 PEG (percutaneous endoscopic gastrostomy) status (ICD-10 - Z93.1) 01/10/2024 Anxiety (ICD-10 - F41.9) 01/03/2024 Hypothyroidism (ICD-10 - E03.9) 11/18/2023 IBS (irritable bowel syndrome) (ICD-10 - K58.9) 06/23/2024 GERD (gastroesophageal reflux disease) (ICD-10 - K21.9) 11/18/2023 Hypoglycemia (ICD-10 - E16.2) 01/10/2024 IBS (irritable bowel syndrome) (ICD-10 - K58.9) 08/07/2024 Acquired hypothyroidism (ICD-10 - E03.9) 01/03/2024 Partial intestinal obstruction, unspecified as to [...] 11/26/2023 FSH - PROLACTIN 11/18/2023 AMYLASE 01/10/2024 BLOOD CULTURE ID PANEL 08/15/2024 CBC AUTO DIFF 08/16/2024 CBC AUTO DIFF 01/10/2024 CRP 08/03/2023 ESTRADIOL 11/18/2023 LACTATE or LACTIC ACID 08/16/2024 LIPASE 01/10/2024 PROF 14(COMP METB) 01/10/2024 PROF 14(COMP METB) 08/16/2024 PROGESTERONE 11/18/2023 TESTOSTERONE, TOTAL 12/23/2023 TESTOSTERONE, TOTAL 11/18/2023 THYROID PROFILE WITH TSH 11/18/2023 THYROID PROFILE WITH TSH 01/10/2024 URINE MICROSCOPIC ONLY 07/30/2023 CT ABD and PELV W CON 11/30/2023 CT ABD and PELVIS WO CON 09/08/2023 XR ABD FLAT UP_PA CH 01/10/2024 XR CHEST 2 V 11/04/2023 XR KUB 1 VIEW 11/23/2023 ECG 12 lead 08/15/2024 Sjogren's Ab, Anti-SS-A/-SS-B 08/03/2023 US abdomen complete 09/05/2023 US abdomen complete 09/06/2023 Insurance Providers Payer Name Payer Address Payer Phone Subscriber Number Group Number Insured Name Patient Relationship to Insured Coverage Start Date Coverage End Date [employer] [place] [employer] [address] [address] [place] [address] [id number] Juan Garcia Self - patient is the insured Medications Administered Medication Instructions Date of Administration Dosage Notes Ceftriaxone 1 gram 08/23/2023 1 g 1 gram Dexamethasone, 4mg/mL 08/23/2023 12 mg 12 Medical (General) History Medical History History ICD Code IBS (irritable bowel syndrome) K58.9 Anxiety F41.9 Asthma J45.909 GERD (gastroesophageal reflux disease) K 21.9 Migraine G43.909 Hypothyroidism E03.9 Surgical History Surgery Date(Month/Year) Gastric bypass 01/2022 DELIVERYx3 APPENDECTOMY CHOLECYSTECTOMY MALS Surgery 02/2023 Hospitalization History Reason Date(Month/Year) Hypoglycemia/ Bowel Obstruction 02/07 [facility] [place] 01/08 [facility]- malnutrition, DM 06[facility]2023 [facility] [place]
--- OUTSIDE RECORDS SUMMARY | 2024-08-16 07:06 | XMS_ITS | Encounter Summary ---
Author Organization [facility] tem Address [id number] [address] [place] [address] Care Team Providers Care Public Services Assistant Name Role Phone No Pcp, No Pcp Primary Care Provider Unavailabl e Reason for Visit * Reason Comments Med Refill Encounter Details Date Type Department Care Team (Late st Contact Info) Description 09/17/2019 Refill Maternal- Medicine at [facility] [address] [place] [address] Marc Martines MD [address] [facility], [address] [place] [address] Gestational diabetes mellitus (GDM) controlled on oral [...] documented as of this encounter Care Teams Public Services Assistant Relationship Specialty Start Date End Date No Pcp, [place] [address] PCP - General Family Medicine 09/22/17 documented as of this encounter
--- OUTSIDE RECORDS SUMMARY | 2024-08-16 07:06 | XMS_ITS | Continuity of Care Document ---
Author Organization [facility] Address [address] [place] [address] Insurance Providers Payer Plan Claims Address Claims Phone Policy Number Group Number Relation Employer Guarantor Name Guarantor Guarantor Address Guarantor Phone [employer] [address], [place] [id number] Self Abbey Garcia [address] [place] [address] [employer] [address], [place] [address] tel:[phone] Self Abbey Garcia [address] [place] [address] [facility] [address] [address], [place] [address] tel:[phone] [id number] Self Abbey Garcia [address] [place] [address] Problems Unknown Problems Results No Results Allergies, adverse reactions, alerts No known allergies and adverse reactions Medications No administered medications reported Vital Signs Date Vital Result Comment 10/30/2022 Body Height 1.4825575605019 m Body Weight 83.84551971871 kg Body Mass Index 29.86 kg/m2 Social History No smoking Hx information available
--- OUTSIDE RECORDS SUMMARY | 2024-08-16 07:06 | XMS_ITS | Clinical Summary ---
Author Organization [facility] tem Address [id number] [address] [place] [address] Care Team Providers Care Child Development Assistant Name Role Phone No Pcp, No [...] Noted Date Diagnosed Date Hypothyroidism affecting in [facility] 09/22/2017 Family History Medical History Relation [...] on file Insurance [employer] Care Teams Child Development Assistant Relationship Specialty Start Date End Date No Pcp, [place] [address] PCP - General Family Medicine 09/22/17
--- OUTSIDE RECORDS SUMMARY | 2024-08-16 07:07 | XMS_ITS | Clinical Summary ---
Author Organization [employer] Address [address] [place] [address] Care Team Providers Care Negative Turner Apprentice Name Role Phone Thomas Alas MD Primary Care Provider [phone] Allergies Active Allergy Reactions Criticality Noted Date [...] ( season) 2023 02/18/2021, 06/23/2020 INFLUENZA VACCINE (#1) 2024 , 11/16/2021, 01/01/2021, Additional history exists TETANUS 09/21/2026 09/21/2016 TDAP (ADULT) Completed 09/21/2016 HPV VACCINE Aged Out No longer eligi ble based on patient's age to complete this topic PNEUMOCOCCAL VACCINE SERIES Aged Out No longer eligible based on patient's age to complete this topic Insurance MMO [facility] [employer] Care Teams Negative Turner Apprentice Relationship Specialty Start Date End Date Thomas Alas MD PCP - General 12/30/23
--- OUTSIDE RECORDS SUMMARY | 2024-08-16 07:07 | XMS_ITS | Clinical Summary ---
Author Organization [facility] Address [address] [place] [address] Phone Care Team Providers Care Fiberglass Product Tester Name Role Phone Generic Provider, No Assigned [...] from your doctor or pharmacy? Never 06/30/2023 [facility] Utilities Answer Date Recorded In the past 12 months has [facility] [employer] gas, oil, or water [employer] threatened to shut off services in your [...] How often do you attend chur or yazdanism services? More than 4 times per year 06/30/2023 Do you belong to any clubs o r organizations such as druze groups, unions, fraternal or athletic groups, or [...] Recorded Patient Health Questionnaire-2 Score 2 06/30/2023 [facility] - Occupational Stress Questionnaire Answer Date [...] place to sleep or slept in a group home (including now)? No 06/30/2023 Comments Unknown [...] Description 08/29/2024 10:15 AM EDT Office Visit [facility] Physician Fabio [address] [place] [address] [place] [address] [place] [address] Health Maintenance Due Date Last Done Comments Echocardiogram 1989 HIV Screening 1989 Lipid Panel 1989 MMR Vaccines (1 of 1 - Standard series) 1990 Varicella Vaccines (1 of 2 - 13+ 2-dose series) 2002 Hepatitis C Screening 2007 Hepatitis B Vaccines (1 of 3 - 19+ 3-dose series) 2008 Pneumococcal Vaccine: Pediatrics and At-Risk Adult Patients (1 of 2 - PCV) 2008 Cervical Cancer Screening 2010 HPV/Cotest 2010 Pap Smear 2010 Yearly Adult Physical 12/18/2021 12/17/2020 COVID-19 Vaccine ( season) 2023 02/18/2021, 06/23/2020 TSH Level 10/27/2023 10/26/2022 Creatinine Level 07/01/2024 07/02/2023, , 06/30/2023, Additional history exists Potassium Level 07/01/2024 07/02/2023, 0507/2023, 06/30/2023, Additional history exists Diabetes Screening 07/02/2024 07/03/2023, 0 07/02/2023, 07/02/2023, Additional history exists Influenza Vaccine (Season Ended) 2024 11/12/2022, 11/16/2021, 01/01/2021, Additional history exists DTaP/Tdap/Td Vaccines (2 - Td or Tdap) 09/21/2026 09/21/2016 Zoster Vaccines (1 of 2) 2039 HIB Vaccines Aged Out No longer eligi ble based on patient's age to complete this topic HPV Vaccines (No Doses Required) Completed Hepatitis A Vaccines Aged Out No long [...] this topic Medical Devices Implanted Type Area Humanities Professor Device Identifier Shelf Expiration Date Model / Serial / Lot Membrane, Seprafilm, 5 X 6 In - [id number] Implanted:Qty : 1 on 03/05/2023 by Sherry Holley MD at [facility] Implant N/A: Abdomen [facility] [id number] 10/02/2023 [id number] / / [id number] Procedures Procedure Name Priority Date/Time Associated Diagnosis Comments POCT GLUCOSE Routine 07/03/2023 7:17 AM EDT RENAL FUNCTION PANEL Routine 07/02/2023 6:47 AM EDT from Last 3 Months or Most Recently Relevant to Health Maintenance Results * (ABNORMAL) POCT GLUCOSE (07/03/2023 7:17 AM EDT) POCT Glucose 121(H) 74 - 99 mg/dL 07/03/2023 7:24 AM EDT [facility] Blood Capillary blood specimen / Unknown 07/03/2023 7:17 AM EDT 07/03/2023 7:24 AM EDT Kina Ann MD LAB POINT OF CARE TE ST DOCKED DEVICE UNSOLICITED RESULTS Final Result [facility] [address] [place] [id number] * (ABNORMAL) Renal Function Panel (07/02/2023 6:47 AM EDT) Glucose 101(H) 65 - 99 mg/dL 07/02/2023 7:53 AM EDT [facility] Sodium 137 133 - 145 mmol/L 07/02/2023 7:53 AM EDT [facility] Potassium 3.9 3.4 - 5.1 mmol/L 07/02/2023 7:53 AM EDT [facility] Chloride 103 97 - 107 mmol/L 07/02/2023 7:53 AM EDT [facility] Bicarbonate 23(L) 24 - 31 mmol/L 07/02/2023 7:53 AM EDT [facility] Urea Nitrogen 13 8 - 25 mg/dL 07/02/2023 7:53 AM EDT [facility] Creatinine 0.70 0.40 - 1.60 mg/dL 07/02/2023 7:53 AM EDT [facility] eGFR >90 >60 mL/min/1.7 3m*2 07/02/2023 7:53 AM EDT [facility] Comment: Calculations of estimated GFR are performed using the 2020 CKD-EPI Study Refit equation without the race variable for the IDMS-Traceable creatinine methods. https://jasn.asnjournals.org/content/early//ASN.8667426916 Calcium 8.6 8.5 - 10.4 mg/dL 07/02/2023 7:53 AM EDT [facility] Phosphorus 4.0 2.5 - 4.5 mg/dL 07/02/2023 7:53 AM T [facility] Albumin 4.0 3.5 - 5.0 g/dL 07/02/2023 7:53 AM EDT [facility] Anion Gap 11 <=19 mmol/L 07/02/2023 7:53 AM T [facility] Blood Venous blood specimen / Unknown 07/02/2023 6:47 AM EDT 07/02/2023 6:58 AM EDT Loreto Doty MD LAB BLOOD ORDERABLES F inal Result [facility] [address] [place] [address] from Last 3 Months or Most Recently Relevant to Health Maintenance Insurance [facility] MEDICAID Member Subscriber Plan / Payer (Ef fective 2024-Present) Name:Abbey Garcia Relation to Subscriber:Self Name:Abbey Garcia Payer ID:[id number] (NAIC) Type:Not on file Address: [place] [phone] MEDICAID Advance Directives For more information, please contact: [phone] (Available ) * Full Code (Latest Code Status on File) Date Activated Date Inactivated Comments 03/05/2023 2:37 PM Question Answer Comments Plan of Care: Code Status Discussion Completed Decision Maker: Patient Care Teams Fiberglass Product Tester Relationship Specialty Start Date End Date Generic Provider, No Assigned Pcp, [place] [address] PCP - General Orthotic/Prosthetic Practitioner 06/29/23
--- OUTSIDE RECORDS SUMMARY | 2024-08-16 07:07 | XMS_ITS | Clinical Summary ---
Author Organization [facility] Address [address] [place] [address] Care Team Providers Care Dragger Name Role Phone Anna Mendez [employer] HEAD Unavailable Thomas Alas MD Primary Care Provider [phone] Allergies Active Allergy Reactions Criticality Noted Date [...] 06/09/19 23 Active Lancets (OneTouch Delica Plus [id number]) misc USE TO TEST BLOOD SUGAR TWICE [...] imaging of liver 04/07/2020 Severe protein-calorie malnutrition (HHS-HCC) Right upper quadrant abdominal pain 01/31/2020 Situational [...] Hypertensive disorder 09/13/2017 39 weeks gestation of ([facility] 2016 Polycystic ovaries 10/02/2013 Asthma without status asthmaticus 10/02/2013 Gastric ulcer 02/15/2013 Overview (08/04/2022): Last Assessment & Plan: Assessment: had in 2013,moniotred per PCP Family History Medical History Relation Name Comments No Known Problems Daughter 1 2 Hypertension Father Adán Artino Thyroid disease Father Adán Artino Cancer Maternal Grandfather Cedrick Kraus Diabetes Maternal Grandfather Cedrick Kraus Heart disease Maternal Grandfather Cedrick Kraus Hypertension Maternal Grandfather Cedrick Kraus Thyroid disease Maternal Grandfather Cedrick Kraus Hypertension Maternal Grandmother Erica Kraus Diabetes Mother Jessica Artino Hypertension Mother Jessica Artino Hypertension Paternal Grandfather Elan Artino Diabetes Paternal Grandmother Gladys Artino Heart [...] Cervical swab / Unknown us Historical Provider LAB CYTOLOGY ORDERABLES F inal Result [facility] from Last 3 Months or Most Recently Relevant to Health Maintenance Insurance [employer] Care Teams Dragger Relationship Specialty Start Date End Date Thomas Alas MD [address] [place] [address] PCP - General Family Medicine 12/14/23 Anna Mendez NP [address] [place] [address] Referring Physician Family Medicine 07/23/22
--- OUTSIDE RECORDS SUMMARY | 2024-08-16 07:07 | XMS_ITS | Encounter Summary ---
Author Organization [facility] [employer] enter Address [address] [place] [address] Care Team Providers Care Correctional Counselor/Case Manager Name Role Phone Thomas Alas MD Primary Care Provider [phone] Reason for Visit * Reason Onset Date Comments Appointment 04/18/2024 Encounter Details Date Type Department Care Team (Late st Contact Info) Description 04/18/2024 Telephone Central Scheduling [address] [place] [phone] Joanne Shi Appointment Social History Tobacco [...] until 2025. The patient also follows with [facility]. I would recommend maintaining follow up as scheduled and in the meanwhile look for any clinic cancellations for which she could be added, thank you. * Telephone Encounter - Jonane Yuridia - 04/18/2024 4:33 PM EST GHN TRIAGE (NON-SYMPTOM) MESSAGE Provider: Bina Subject of call: Appointment Reason for call: Dr. Curran told patient to eturn in about 6 months (around 06/28/2024). First available appt is 05/2025. Please advise Preferred call back time: Anytime [phone] Will warm connect patient to nursing line [...] on filedocumented in this encounter Care Teams Correctional Counselor/Case Manager Relationship Specialty Start Date End Date Thomas Alas MD PCP - General 12/30/23 documented as of this encounter
--- NOTE | 2024-08-16 07:20 | PC.NURSE ---
0700 iv to right antecubital not flushing or running. Iv removed. Patient states they had to use the ultrasound to get it. Yeast Pumper tried twice to restart it. Iv attempt to left wrist with 22 guage catheter and to right forearm with 22 guage catheter. both attempts without success. Icu Nurse SFuchs into attempt iv. Patient's nurse Valerie rn notified.
[2024-08-16 07:58] VITALS: BP 105/65; PULSE 100; TEMP 36.8; O2SAT 93
[2024-08-16] MEDS: ENOXAPARIN SODIUM 40 MG/0.4 ML SYRINGE SUBQ (08:44)
--- NOTE | 2024-08-16 09:21 | SWNOTE1 ---
SW stopped in pt's room to see how she is doing. Pt voiced she is doing well at home and does not think she will have any needs at discharge. SW voiced for pt let SW know if she thinks of anything she may need.
--- NOTE | 2024-08-16 09:22 | P.IMHP_ITS ---
Internal Medicine - H&P: HPI History of Present Illness Chief complaint: FOLLOW UP, INFECTION,BACTEREMIA Narrative: Abbey Garcia is a 34 y/o F, h/o gastric bypass surgery, median arcuate ligament syndrome with plan for revision surgery, RIJ chappell catheter for supplemental TPN, J-tube placement with recent insertion site skin infection, presented to [place] ER with fevers and chills, recent blood cultures positive prompting medical admission. On assessment at bedside on regular nursing floor, patient resting comfortably in bed, slight nausea but feels improved overall. Fevers and chills for the past 2 days prior. Denies any chest pain, cough, shortness of breath, burning with urination, or diarrhea, is able to take soft PO foods, not currently using J- tube, takes scheduled TPN in evening. Started on zosyn in ER. Initiated transfer for [facility] by ER. Review of Systems ROS Status of ROS 10 or more systems reviewed and unremark able except as noted in history and below [facility] History (Updated 08/16/24 @ 04:03 by Vicky Bird MD) Hypoglycemia ?E16.2 - Hypoglycemia, unspecified (ICD-10) Gastroenteritis ?K52.9 - Noninfective gastroenteritis and colitis, unspecified (ICD-10) Feeding by G-tube ?Z93.1 - Gastrostomy status (ICD-10) Abdominal pain ?R10.9 - Unspecified abdominal pain (ICD-10) Small bowel intussusception ?K56.1 - Intussusception (ICD-10) Nausea and vomiting ?R11.2 - Nausea with vomiting, unspecified (ICD-10) Flank pain ?R10.9 - Unspecified abdominal pain (ICD-10) Abdominal pain ?R10.9 - Unspecified abdominal pain (ICD-10) Acute abdomen ?R10.0 - Acute abdomen (ICD-10) Intractable nausea and vomiting ?R11.2 - Nausea with vomiting, unspecified (ICD-10) Intractable abdominal pain ?R10.9 - Unspecified abdominal pain (ICD-10) Depression ?F32.A - Depression, unspecified (ICD-10) Asthma ?J45.909 - Unspecified asthma, uncomplicated (ICD-10) Dyspareunia Pelvic pain ?R10.2 - Pelvic and perineal pain (ICD-10) Ovarian cyst ?N83.209 - Unspecified ovarian cyst, unspecified side (ICD-10) PONV (postoperative nausea and vomiting) ?R11.2 - Nausea with vomiting, unspecified (ICD-10) ?Z98.890 - Other specified postprocedural states (ICD-10) PCOS (polycystic ovarian syndrome) ?E28.2 - Polycystic ovarian syndrome (ICD-10) Hypothyroidism (acquired) ?E03.9 - Hypothyroidism, unspecified (ICD-10) Anxiety ?F41.9 - Anxiety disorder, unspecified (ICD-10) GERD (gastroesophageal reflux disease) ?K21.9 - Gastro-esophageal reflux disease without esophagitis (ICD-10) Sleep apnea ?G47.30 - Sleep apnea, unspecified (ICD-10) Anemia ?D64.9 - Anemia, unspecified (ICD-10) Fibromyalgia ?M79.7 - Fibromyalgia (ICD-10) Syncope (07/07/13) ?R55 - Syncope and collapse (ICD-10) Shingles ?B02.9 - Zoster without complications (ICD-10) Headache ?R51.9 - Headache, unspecified (ICD-10) Migraine ?G43.909 - Migraine, unspecified, not intractable, without status migrainosus (ICD-10) Mechanical ileus (01/31/20) ?K56.609 - Unspecified intestinal obstruction, unspecified as to partial versus complete obstruction (ICD-10) COVID-19 (~02/2020) ?U07.1 - COVID-19 (ICD-10) Kidney stones ?N20.0 - Calculus of kidney (ICD-10) Surgical History S/P percutaneous endoscopic gastrostomy (PEG) tube placement ?Z93.1 - Gastrostomy status (ICD-10) 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 - Celiac artery compression syndrome (ICD-10) H/O shoulder surgery (2022) ?Z98.890 - Other specified postprocedural states (ICD-10) History of hip surgery ?Z98.890 - Other specified postprocedural states (ICD-10) S/P right knee arthroscopy ?Z98.890 - Other specified postprocedural states (ICD-10) S/P left knee arthroscopy ?Z98.890 - Other specified postprocedural states (ICD-10) Hx of tonsillectomy ?Z90.89 - Acquired absence of other organs (ICD-10) History of thoracic surgery (~2021) ?Z98.890 - Other specified postprocedural states (ICD-10) History of esophagogastroduodenoscopy (EGD) (10/04/13) ?Z98.890 - Other specified postprocedural states (ICD-10) History of cholecystectomy (10/06/13) ?Z90.49 - Acquired absence of other specified parts of digestive tract (ICD- 10) Delivery by section (~2016) Delivery by section (01/17/18) H/O colonoscopy (~2018) ?Z98.890 - Other specified postprocedural states (ICD-10) S/P right knee arthroscopy (07/21/18) ?Z98.890 - Other specified postprocedural states (ICD-10) Delivery by section (06/19/19) History of appendectomy (09/25/19) ?Z90.49 - Acquired absence of other specified parts of digestive tract (ICD- 10) H/O laparoscopy (11/10/19) ?Z98.890 - Other specified postprocedural states (ICD-10) History of liver biopsy (~04/2020) ?Z98.890 - Other specified postprocedural states (ICD-10) H/O laparoscopy (07/18/20) ?Z98.890 - Other specified postprocedural states (ICD-10) H/O arthroscopy of right knee (08/07/20) ?Z98.890 - Other specified postprocedural states (ICD-10) S/P laparoscopic sleeve gastrectomy (09/03/20) ?Z98.84 - Bariatric surgery status (ICD-10) H/O: hysterectomy (11/12/20) ?Z90.710 - Acquired absence of both cervix and uterus (ICD-10) History of hernia repair (03/20/21) ?Z98.890 - Other specified postprocedural states (ICD-10) ?Z87.19 - Personal history of other diseases of the digestive system (ICD-10) Family History Other Family history of cancer Family history of diabetes mellitus Family history of hypertension Family history of myocardial infarction PONV (postoperative nausea and vomiting) Social History (Updated 08/16/24 @ 04:44 by Shelley Wong) Within the past year, how often did you have a drink containing alcohol: never Score interpretation: A score less than 3 is consistent with normal alcohol consumption. Smoking status: Never smoker Non-prescribed substance use: denies use Previous occupational history: disabled Known occupational exposures/hazards details: disabled Highest level of school completed/degree received: Master's degree Are you now , , , , never or living with a partner: In a typical week, how many times do you talk on the telephone with family, friends, or neighbors: 3 or more times per week How often do you get together with friends or relatives: twice per week How often do you attend methodist or alevism services: 4 or more times per year Do you belong to any clubs or organizations such as methodist groups unions, [employer] or athletic groups, or school groups: no Total score: 3 Score interpretation: A score of greater than or equal to 2 indicates the lowest level of social isolation. Little interest or pleasure in doing things: not at all Feeling down, depressed, or hopeless: not at all Feel stressed/tense/nervous/anxious/difficulty sleeping: to some extent Do you think of yourself as: straight/heterosexual Gender Identity: female Meds Home Medications and Allergies Home Medications ?Medication ?Instructions ?Recorded ?Confirmed ?Type hydroxyzine HCl 25 mg tablet 25 mg PO BID PRN anxiety 09/17/22 08/16/24 History topiramate 100 mg tablet 100 mg PO BID 09/17/2208/16 History metoclopramide HCl 10 mg tablet 10 mg PO AC PRN nausea and vomiting 06/14/23 08/16/24 History albuterol sulfate 90 mcg/actuation 2 puff inhalation Q 6H PRN 06/15/23 08/16/24 History aerosol inhaler shortness of breath or wheez ing escitalopram oxalate 20 mg tablet 20 mg PO DAILY 06/1408/16/24 History levothyroxine 75 mcg tablet 75 mcg PO DAILY 06/15/23 0 08/16/24 History tramadol 50 mg tablet 50 mg PO Q6H PRN pain #28 ta bs 06/16/23 08/16/24 Rx acetaminophen 325 mg tablet (Pain 650 mg PO Q4H PRN pa in 06/24/23 08/16/24 History Relief (acetaminophen)) blood sugar diagnostic ([facility] 03/29/24 08/16/24 Hi story Ultra Test strips) blood-glucose [facility] ([facility] 03/29/24 08/16/24 Histo ry Ultra2 Meter) blood-glucose sensor ([employer] 03/29/24 08/16/24 His tory Hunter 3 Plus Sensor device) fentanyl 25 mcg/hr transdermal 1 patch transdermal Q72 H 03/29/24 08/16/24 History patch hydrocodone 5 mg-acetaminophen 325 1 tab PO Q4H PRN pa in 03/29/24 08/16/24 History mg tablet lancets 30 gauge ([facility] Delica 03/29/24 08/16/24 H istory Plus Lancet) methocarbamol 500 mg tablet 750 mg PO Q6H 03/29/2404/11 History omeprazole 40 mg capsule,delayed 40 mg PO BID 03/29/24 08/16/24 History release pen needle, diabetic 32 gauge x 03/29/24 08/16/24 His tory 5/32 (BD Stefania 2nd Gen Pen Needle) prucalopride 2 mg tablet 2 mg PO DAILY 03/29/2408/16 History trazodone 100 mg tablet 100 mg PO .qhs 03/29/2404/11 History ergocalciferol (vitamin D2) 1,250 1,250 mcg PO .Q7 09/0808/16/24 History mcg (50,000 unit) capsule hydrocortisone 10 mg tablet 10 mg PO DAILY 08/16/24 History mirtazapine 45 mg tablet 45 mg PO BEDTIME 08/16/24 History ondansetron 4 mg disintegrating 8 mg PO Q4H PRN nausea and vomiting 08/16/24 08/16/24 History tablet prochlorperazine maleate 10 mg 10 mg PO TID PRN nausea and 08/16/24 08/16/24 History tablet (Compazine) vomiting Allergies Allergy/AdvReac Type Severity Reaction Status Date / Time adhesive Allergy Rash Verified 08/15/24 23:53 NSAIDS (Non-Steroidal Allergy intolerance Verified 08/15/24 23:53 Anti-Inflamma codeine AdvReac Vomiting Verified 08/15/24 23:53 Exam Narrative Exam Narrative: Gen.: Awake, alert, in no distress, well nourished Head: Normocephalic, atraumatic, R chappell catheter in place, no erythema or tenderness ENT: Moist mucous membranes Respiratory: No respiratory distress, lungs clear bilaterally Cardio: Regular rate and rhythm Gastrointestinal: Abdomen is soft, nondistended and nontender to palpation, midline exlap scar, J tube present no erythema or tenderness Extremities: Moves extremities equally Psych: Normal mood and affect Neuro: No focal neuro deficit Skin: Warm, dry, intact Constitutional Vital Signs, click to edit/add: Last Vital Signs Temp 98.3 F 08/16/24 07:58 Pulse 100 H 08/16/24 07:58 Resp 20 08/16/24 07:58 BP 105/65 08/16/24 07:58 Pulse Ox 93 L 08/16/24 07:58 O2 Del Method Room Air 08/16/24 07:58 Internal Medicine - H&P: Reslt Labs Labs: Short CBC 08/16/24 Range/Units 00:38 WBC 9.1 (4.0-11.0) 10^3/uL Hgb 9.8 L (12.0-16.0) g/dL Hct 28.2 L (36.0-48.0) % Plt Count 214 (150-450) 10^3/uL BMP 08/16/24 00:38 Sodium 138 Potassium 3.3 L Chloride 104 Carbon Dioxide 22.5 BUN 13.0 Creatinine 0.47 L Glucose 104 Calcium 8.5 Liver Function 08/16/24 Range/Units 00:38 Total Bilirubin 0.7 (0.2-1.0) mg/dL AST 25 (15-37) U/L ALT 16 (14-59) U/L Alkaline Phosphatase 104 (46-116) U/L Albumin 2.4 L (3.4-5.0) g/dL Assessment and Plan Assessment and Plan (1) Bacteremia: (2) Nausea & vomiting: (3) Feeding by G-tube: Plan Abbey Garcia is a 34 y/o F, h/o gastric bypass surgery, median arcuate ligament syndrome with plan for revision surgery, RIJ chappell catheter for supplemental TPN, J-tube placement with recent insertion site skin infection, presented to [place] ER with fevers and chills, recent blood cultures positive prompting medical admission. 1. Bacteremia in the setting of chappell catheter for supplemental TPN - Patient reports chappell placed in September 2023, plan for removal following arcuate ligament revision surgery - concern for line infection and able to take some PO, will hold TPN and plan to transfer to [facility] for removal and antibiotic recommendations - continue ertapenem for enterobacter and klebsiella bacteremia - ok for PO diet and NS 75 cc/hr 2. h/o gastric bypass surgery, median arcuate ligament syndrome with plan for revision surgery, RIJ chappell catheter for supplemental TPN, J-tube placement with recent insertion site skin infection - continue fentanyl patch 75 mcg q72 hr - continue home meds for nausea and constipation - continue psych meds, escitalopram, topomax, remeron Diet: regular as tolerated Lines/tubes: PIV, RIJ hickaman, J-tube VTE prophylaxis: lovenox Code status: full Dispo: inpatient --> [facility]
--- NOTE | 2024-08-16 10:00 | CM.NOTE ---
Rounds made with Dr. Valiente, discussed with pt regarding transfer to [facility] for infectious disease. [facility] continues to not have bed availability. Pt in agreement to transfer to [facility].
[2024-08-16] MEDS: FENTANYL 25 MCG/HR PATCH.TD72 TD (10:36)
[2024-08-16] MEDS: 0.9 % SODIUM CHLORIDE 1,000 ML 75 ML IV (10:38)
[2024-08-16] MEDS: TRAMADOL HCL 50 MG TABLET PO ×2 (10:41→17:32)
[2024-08-16 11:23] VITALS: BP 113/75; PULSE 77; TEMP 36.9; O2SAT 97
--- NOTE | 2024-08-16 14:00 | CM.NOTE ---
Spoke with Dr. Valiente [facility] unable to take pt in transfer. Discussed with pt other options, pt is in agreement to [facility]. Called bed coordinator at [facility] and information given, stenographer secretary sent pt's face sheet.
[2024-08-16] MEDS: METHOCARBAMOL 500 MG TABLET 750 MG PO (14:14)
[2024-08-16 15:23] VITALS: BP 112/74; PULSE 73; TEMP 36.9; O2SAT 97
--- NOTE | 2024-08-16 18:12 | PC.NURSE ---
Report called to Lolis PRICE at [facility]. No time for transport known when calling report
[2024-08-16] MEDS: ACETAMINOPHEN 325 MG TABLET 650 MG PO (19:23)
== END 2024-08-16 19:36 | disposition short-term general hospital (02) | DRG 721 ==
LOC: ER 08-16 04:06 → MS 08-16 07:03
PROVIDERS: Admitting Provider Student in an Organized Health Care Education/Training Program; Emergency Provider Emergency Medicine; PCP Family Medicine; Visit Provider Student in an Organized Health Care Education/Training Program
DX: T80.211A Bloodstream infection due to central venous catheter, initial encounter (principal); R78.81 Bacteremia; B96.89 Other specified bacterial agents as the cause of diseases classified elsewhere; B96.1 Klebsiella pneumoniae [K. pneumoniae] as the cause of diseases classified elsewhere; K91.2 Postsurgical malabsorption, not elsewhere classified; J45.909 Unspecified asthma, uncomplicated; Z79.899 Other long term (current) 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; Z93.4 Other artificial openings of gastrointestinal tract status; Z86.79 Personal history of other diseases of the circulatory system; Z79.890 Hormone replacement therapy; Z98.84 Bariatric surgery status; Z79.52 Long term (current) use of systemic steroids
CPT/HCPCS: 36415; 71046; 74177; 80053; 81003; 83605; 83690; 85025; 87040; 87077; 87150; 87186; 93005; 96361; 96365; 96374; 96375; 99285; J0780; J1200; J1335; J1650; J1885; J2270; J2405; J2543; Q9967

== ENCOUNTER 2024-08-28 12:32 | Inpatient (IN) | payer MEDICAID, SELFPAY ==
--- OUTSIDE RECORDS SUMMARY | 2024-08-16 20:48 | XMS_ITS | Encounter Summary ---
Author Organization [facility] Address [address] [place] [address] [place] [address] Care Team Providers Care Loan Underwriter Name Role Phone Thomas Alas MD Primary Care Provider [phone] Reason for Visit * Auth/Cert (Routine) Specialty Diagnoses / Procedures Referred By Jazmine hooks Referred To Contact Diagnoses Bacteremia Bacteremia Procedures NO CODED SERVICES Josefina Mcgarry MD [address] [place] [address] Phone: tel: fax: [address] Surgery Stepdown [address] [place] [address] Phone: tel: fax: Referral ID Status Reason Start Date Expiration Date Visits Re quested Visits Authorized [id number] 1 1 Encounter Details Date Type Department Care Team (Late st Contact Info) Description 08/16/2024 8:48 PM EDT - 08/20/2024 3:55 PM EDT Hospital Encounter [address] Surgery Stepdown [address] [place] [phone] Sandeep Casey MD [address] [place] [phone] Mauricio Garcia MD [address] [place] [id number] Josefina Mcgarry MD [address] [facility] [place], [place] [id number] Bacteremia (Primary Dx) Discharge Disposition: Home or Self Care (01) Social History Tobacco Use Types Packs/Day Years Used Date Smoking Tobacco: Never Smokeless Tobacco: Never Tobacco Cessation:Counseling Given: Not Answered [facility] Utilities Answer Date Recorded In the past 12 months has th e electric, gas, oil, or water company threatened to shut off services in your home? No 08/16/2024 Humiliation, Afraid, Rape, and Kick questionnair e Answer Date Recorded Within the last year, have y ou been afraid of your partner or ex-partner? No 08/16/2024 Emotionally Abused Not on file 08/16/2024 Physically Abused Not on file 08/16/2024 Sexually Abused Not on file 08/16/2024 Overall Financial Resource Strain (CARDIA) Answe r Date Recorded How hard is it for you to pa y for the very basics like food, housing, medical care, and heating? Not hard at all 08/16/2024 Transportation Answer Date Recorded In the past 12 months, has l ack of transportation kept you from medical appointments or from getting medications? No 08/16/2024 Lack of Transportation (Non-Medical) Not on file 08/16/2024 Housing Stability Vital Sign Answer Eugenio e Recorded In the last 12 months, was t here a time when you were not able to pay the mortgage or rent on time? No 08/16/2024 In the past 12 months, how m any times have you moved where you were living? 0 08/16/2024 At any time in the past 12 m [facility], were you homeless or living in a longterm (including now)? No 08/16/2024 Hunger Vital Sign Answer Date Recorded Within the past 12 months, y ou worried that your food would run out before you got the money to buy more. Never true 08/17/19 25 Ran Out of Food in the Last Year Not on file 08/16/2024 Comments Unknown Sex and Gender Information Value Date Recorded Sex Assigned at Female 08/17/2024 3:45 PM EDT Legal Sex Female 12:07 AM EDT Gender Identity Female 08/17/2024 3:45 PM EDT Sexual Orientation Heterosexual or Straight 04/2024 3:45 PM EDT documented as of this encounter Last Filed Vital Signs Vital Sign Reading Time Taken Comments Blood Pressure 122/65 08/20/2024 12:19 PM EDT Pulse 92 08/20/2024 12:19 PM EDT Temperature 36.6 C (97.9 F) 08/20/2024 12:19 PM EDT Respiratory Rate 16 08/20/2024 12:1 9 PM EDT Oxygen Saturation 95% 08/20/2024 12: 19 PM EDT Inhaled Oxygen Concentration - - Weight 86.5 kg (190 lb 11.2 oz) 08/20/2024 4:08 AM EDT Height 167.6 cm (5' 6 ) 08/16/2024 9:35 PM EDT Body Mass Index 30.78 08/16/2024 9:35 PM EDT documented in this encounter Functional Status * Suicidal Ideation Question Answer Date of Assessment Author 1. Wish to be (Lifetime) No 08/16/2024 9:45 PM EDT Bailey Ingram, RN 2. Non-Specific Active Suici martha Thoughts (Lifetime) No 08/16/2024 9:45 PM EDT Bailey Ingram RN documented as of this encounter Discharge Summaries * Mauricio Garcia MD - 08/20/2024 1:35 PM EDT Images from the original note were not included. Hospital Medicine Discharge Summary Primary Diagnosis: Sepsis due to Klebsiella bacteremia (CMS/HCC) Secondary Diagnoses: Gastroparesis status post gastric bypass with TPN dependence Chronic pain syndrome Morbid obesity (CMS/HCC) GERD Acquired hypothyroidism History of adrenal insufficiency MALS status post resection Right lower lobe lung nodule, incidental finding PCOS Admission Diagnosis: Bacteremia [R78.81] Hospital course: The patient is a 34-year-old female with a complex medical history including median arcuate ligament syndrome (MALS) status post resection, hypothyroidism, GERD, morbid obesity status post gastric bypass complicated by gastroparesis requiring TPN, polycystic ovary syndrome (PCOS), chronic pain syndrome, obstructive sleep apnea, and history of adrenal insufficiency. She was transferred from [facility] on 08/17/24 for continued management of bacteremia with Klebsiella. On arrival at [facility], the likely source of sepsis was identified as cellulitis around her J-tube site, which had been recently removed on 08/17/24. Prior CT imaging from [facility] and repeat imaging at [facility] showed no evidence of abscess formation but did note colonic stool burden. Infectious disease evaluated the patient and recommended switching from ceftriaxone to Augmentin based on prior cultures and sensitivities. A total of 2 weeks of antibiotics was planned, with an end of therapy date of 08/31/24. Repeat blood cultures on 08/16 were negative for growth. Central line appeared clinically uninfected; central line care protocols were reinforced. For gastroparesis, She had previously used a J-tube for enteral feeds but more recently she was notusing that. it was removed on this admission. Antiemetics were administered as needed for symptomatic nausea. Chronic pain syndrome was managed with her established regimen, including fentanyl patches, scheduled tramadol, and as-needed [place], which were continued during hospitalization and on discharge. An incidental 1-cm right lower lobe lung nodule was noted on imaging; instructions were provided ondischarge to repeat a CT scan in three months for surveillance. The patient remained hemodynamically stable throughout hospitalization, with improvement in clinical status and resolution of signs of sepsis. She was discharged home in stable condition on 08/20/24 with home health services arranged, a clear antibiotic plan (Augmentin to complete a 2-week course), ce ntral line care instructions, and follow-up for surveillance imaging of her lung nodule. Surgical, Invasive or Diagnostic Procedures Done During Admission: None Consultations During Admission: Infectious Disease Deazita Alas MD, Abbey is advised to follow up with you within 1-2 weeks. Items to follow up in ambulatory setting: None Follow-up with: Infectious Disease Scheduled appointments: No future appointments. Your medication list START taking these medications Instructions Last Dose Given Next Dose Due amoxicillin-pot clavulanate 875-125 mg tablet Commonly known as: Augmentin Take 1 tablet by mouth two times daily for 10 days. CONTINUE taking these medications Instructions Last Dose Given Next Dose Due acetaminophen 325 mg tablet Commonly known as: Tylenol ALBUTEROL INHL dexAMETHasone 2 mg tablet Commonly known as: Decadron ergocalciferol 1.25 MG (77994 Units) capsule Commonly known as: Vitamin D-2 escitalopram 20 mg tablet Commonly known as: Lexapro levothyroxine 75 mcg tablet Commonly known as: Synthroid, Levoxyl linaCLOtide 290 mcg capsule Commonly known as: Linzess liothyronine 5 mcg tablet Commonly known as: Cytomel methocarbamol 500 mg tablet Commonly known as: Robaxin metoclopramide 10 mg tablet Commonly known as: Reglan mirtazapine 30 mg tablet Commonly known as: Remeron omeprazole [address] capsule Commonly known as: PriLOSEC prucalopride 2 mg tablet topiramate 100 mg tablet Commonly known as: Topamax traZODone 100 mg tablet Commonly known as: Desyrel Where to Get Your Medications These medications were sent to [facility] - [place], [place] - [address] [place] [address], [facility] [address] amoxicillin-pot clavulanate 875-125 mg tablet Abbey is allergic to codeine, nsaids (non-steroidal anti-inflammatory drug), and adhesive. Disposition: Home or Self Care () Discharge Condition: Stable Code Status: Full Code Diagnostic Results Hematology: Results from last 7 days Lab Units 08/20/24 0517 08/19/24 0532 WBC AUTO 10*3/uL 5.02 4.69 HEMOGLOBIN g/dL 9.1* 9.4* HEMATOCRIT % 29.1* 29.3* MCV fL 96.4 93.9 PLATELETS AUTO 10*3/uL 336 285 Chemistry: Results from last 7 days Lab Units 08/20/24 0517 08/19/24 0415 08/18/24 0554 08/17/24 0529 08/16/24 2137 SODIUM mmol/L 142 141 137 < > 139 POTASSIUM mmol/L 3.7 3.9 5.1 < > 3.6 CHLORIDE mmol/L 109* 110* 110* < > 112* CO2 mmol/L 26 26 19* < > 21 BUN mg/dL 4* 6* 4* < > 6* CREATININE mg/dL 0.54* 0.56* 0.52* < > 0.49* GLUCOSE mg/dL 81 90 101* < > 89 MAGNESIUM mg/dL -- -- -- -- 1.8* CALCIUM mg/dL 8.4* 8.2* 8.5* < > 7.5* < > = values in this interval not displayed. Results from last 7 days Lab Units 08/16/24 2137 AST U/L 21 ALT U/L 10 ALK PHOS U/L 73 BILIRUBIN TOTAL mg/dL 0.4 BILIRUBIN DIRECT mg/dL 0.1 Test Results Pending At Discharge: Pending Labs Order Current Status Blood culture, peripheral #1 Preliminary result Blood culture, peripheral #2 Preliminary result Diet at the time of discharge: regular diet Nutrition Screen Activity: Patient currently has no discharge activity orders Objective Blood pressure 122/65, pulse 92, temperature 36.6 ??C (97.9 ??F), temperature source Oral, resp. rate 16, height 1.676 m (5' 6 ), weight 86.5 kg (190 lb 11.2 oz), SpO2 95%. Cardiology: Normal rate, regular rhythm. Lungs: Clear to auscultation, no wheezes, rales or rhonchi, symmetric air entry. Abdomen: Soft, non tender, non distended. Total time for discharge - review of data, exam, discussion with providers and care-team, med-rec and orders, arranging follow up, counseling of patient and/or family and documentation was 40 minutes. Signed Mauricio Garcia MD [facility] Medicine 08/20/2024 1:35 PM CC: MD Evette documented in this encounter Discharge Instructions * Discharge Instructions* Mauricio Garcia MD - 08/20/2024 12:35 PM EDT - close follow-up with your primary care physician and general surgeon at [facility]. - right lower lobe Lung nodule measuring 1 cm, you will need follow-up chest CT in 3 months to ensure resolution. * Discharge Instr - Activity* May Emery RN - 08/20/2024 2:32 PM EDT Activity as tolerated * Discharge Instr - Diet* May Emery RN - 08/20/2024 3:03 PM EDT TPN: continue as you were at home * Discharge Instr - Other Orders* May Emery RN - 08/20/2024 2:36 PM EDT J tube removal site: Okay to keep ostomy bag in place for next few days as drainage continues to decrease b. Skin prep to ant wound, Vashe soak 5 mins, silver alginate, adaptic, heavy drainage pad taped down with paper tape. Change daily and as needed Triple Lumen: Change dressing and caps weekly and prn. Flush with 10mls NS before and after meds. Monitor site BID for bleeding, signs/symptoms of infection. * Attachments The following attachments cannot be sent through Care Everywhere. * Bacteremia Adult ([place]i) * Lung Nodule: What to Know [id number] ([place]i) documented in this encounter Medications at Time of Discharge acetaminophen (Tylenol) 325 mg tablet Take 650 mg by mouth every 4 (four) hours if needed for mild pain (1-3 pain score). ALBUTEROL INHL Inhale 90 mcg every 6 (six) hours if needed (SOB or wheezing). amoxicillin-pot clavulanate (Augmentin) 875-125 mg tabletIndications :Bacteremia Take 1 tablet by mouth two times daily for 11 days. 22 tablet 08/20/2024 dexAMETHasone (Decadron) 2 mg tablet Take 3 mg by mouth in the morning. ergocalciferol (Vitamin D-2) 1.25 MG (63807 Units) capsule Take 50,000 Units by mouth 1 (one) time per week. escitalopram (Lexapro) 20 mg tablet Take 20 mg by mouth in the morning. levothyroxine (Synthroid, Levoxyl) 75 mcg tablet Take 75 mcg by mouth before breakfast. linaCLOtide (Linzess) 290 mcg capsule Take 290 mcg by mouth before breakfast. Do not crush or chew. liothyronine (Cytomel) 5 mcg tablet Take 5 mcg by mouth in the morning. methocarbamol (Robaxin) 500 mg tablet Take 750 mg by mouth four times daily. metoclopramide (Reglan) 10 mg tablet Take 10 mg by mouth if needed each day (nausea and vomiting). mirtazapine (Remeron) 30 mg tablet Take 45 mg by mouth at bedtime. omeprazole (PriLOSEC) [address] capsule Take 40 mg by mouth before breakfast and before evening meal. Do not crush or chew. prucalopride 2 mg tablet Take 2 mg by mouth in the morning. topiramate (Topamax) 100 mg tablet Take 100 mg by mouth two times daily. traZODone (Desyrel) 100 mg tablet Take 100 mg by mouth at bedtime. documented as of this encounter Progress Notes * ARELIS Obrien - 08/20/2024 3:55 PM EDT Pt discharged to home today. Sent AVS/Dc order to [facility]. Pt has a supply of TPN at home currently. * Emeka Pruett MD - 08/20/2024 7:46 AM EDT Images from the original note were not included. Infectious Diseases - Inpatient daily Progress Note - Patient name: Abbey Garcia Patient Today's Date and Time: 08/20/2024, 7:47 AM Admission Date: 08/16/2024 Assessment/Plan Impression: Klebsiella Bacteremia from J line infection There is NO concurrent enterococcus infection based on the cultures report received from [facility] S/P J line removal on 08/17 08/16 blood cultures shows no growth for 3 days No intra-abdominal abscess were noted on CT Susceptibility from [place] shows susceptibility to Augmentin WBCs are stable with no fever Recommendations: switch ceftriaxone to Augmantin 875/125 1 tab BID 14 days past the j line removal until 08/31. Todayis day 3 of treatment Subjective Interval history: The patient was sitting in her chair, complains of mild pain over the J line opening, and ostomy bad was placed to drain her j line fluids. She reports no fever overnight. Objective Physical Examination: BP 128/79 (BP Location: Right arm, Patient Position: Lying) Pulse 57 Temp 36.3 ??C (97.3 ??F) (Temporal) Resp 12 Ht 1.676 m (5' 6 ) Wt 86.5 kg (190 lb 11.2 oz) SpO2 99% BMI 30.78 kg/m?? Temperature Range: Temp: 36.3 ??C (97.3 ??F) Temp Av.3 ??C (97.4 ??F) Min: 36.2 ??C (97.1 ??F)Max: 36.6 ??C (97.8 ??F) General Appearance: Awake, alert, and in no apparent distress, Eyes: Sclera anicteric; conjunctivae clear ENT: Oropharynx clear, without erythema, exudate, no thrush. Dentition Good dentition Neck: Supple, without lymphadenopathy. Pulmonary/Chest: clear to auscultation, no wheezes or rales, and unlabored breathing Cardiovascular: Regular rate and rhythm without murmurs Abdomen: soft, mild tenderness over the J line opening, non distended, no palpable masses no organomegaly Extremities: No cyanosis, edema, no joint effusions. Neurologic: Alert and oriented x 3, nonfocal. Skin: No rash no lesions. no pallor Laboratory data: I have independently reviewed the following labs: Results from last 7 days Lab Units 08/20/24 0517 08/19/24 0532 08/18/24 0554 08/17/24 0529 08/16/24 2137 WBC AUTO 10*3/uL 5.02 4.69 6.70 < > 4.37 HEMOGLOBIN g/dL 9.1* 9.4* 13.4 < > 9.0* HEMATOCRIT % 29.1* 29.3* 42.1 < > 27.8* MCV fL 96.4 93.9 95.7 < > 94.2 PLATELETS AUTO 10*3/uL 336 285 441* < > 227 NEUTROS ABS 10*3/uL -- -- -- -- 2.67 LYMPHS ABSOLUTE 10*3/uL -- -- -- -- 1.26 MONOS ABSOLUTE 10*3/uL -- -- -- -- 0.35 EOS ABSOLUTE 10*3/uL -- -- -- -- 0.06 BASOS ABSOLUTE 10*3/uL -- -- -- -- 0.01 < > = values in this interval not displayed. Results from last 7 days Lab Units 08/20/24 0517 08/19/24 0415 08/18/24 0554 08/17/24 0529 08/16/24 2137 POTASSIUM mmol/L 3.7 3.9 5.1 < > 3.6 CHLORIDE mmol/L 109* 110* 110* < > 112* CO2 mmol/L 26 26 19* < > 21 BUN mg/dL 4* 6* 4* < > 6* CREATININE mg/dL 0.54* 0.56* 0.52* < > 0.49* GLUCOSE mg/dL 81 90 101* < > 89 CALCIUM mg/dL 8.4* 8.2* 8.5* < > 7.5* ALK PHOS U/L -- -- -- -- 73 ALT U/L -- -- -- -- 10 AST U/L -- -- -- -- 21 < > = values in this interval not displayed. No lab exists for component: PROCALCITON Results from last 7 days Lab Units 08/17/24 0626 GLUCOSE U MG/DL mg/dL Normal UROBILINOGEN URINE mg/dL Normal BILIRUBIN U Negative No lab exists for component: TOXIGENICC Imaging Studies: I have reviewed myself the following imaging studies performed in the past 3 days: XR chest 1 view Result Date: 08/18/2024 Right IJ central line lower SVC. No pneumothorax. Minimal basilar atelectasis. Electronically signed: Brad Willingham. No CT results found for the past 3 days No MRI results found for the past 3 days Cultures: Results for orders placed or performed during the hospital encounter of 08/16/24 Blood culture, peripheral #2 Specimen: Blood, Venous Result Value Ref Range Blood Culture No growth at 3 days Blood culture, peripheral #1 Specimen: Blood, Venous Result Value Ref Range Blood Culture No growth at 3 days Medications: busPIRone, 10 mg, oral, TID cefTRIAXone, 2 g, intravenous, q24h dexAMETHasone, 3 mg, oral, Daily escitalopram, 20 mg, oral, Daily fentaNYL, 1 patch, transdermal, q72h heparin (porcine), 5,000 Units, subcutaneous, q12h TANIA insulin lispro, 0-5 Units, subcutaneous, TID with meals And insulin lispro, 0-4 Units, subcutaneous, Nightly iohexol, 100 mL, intravenous, Once in imaging levothyroxine, 75 mcg, oral, Daily before breakfast linaCLOtide, 290 mcg, oral, Daily before breakfast liothyronine, 5 mcg, oral, Daily methocarbamol, 750 mg, oral, 4x daily mirtazapine, 45 mg, oral, Nightly pantoprazole, 40 mg, oral, Daily polyethylene glycol, 17 g, oral, Daily sennosides-docusate sodium, 2 tablet, oral, BID topiramate, 100 mg, oral, BID traMADol, 50 mg, oral, q6h traZODone, 100 mg, oral, Nightly This progress note was completed using a voice child development specialist system. Every effort was made to ensure accuracy; however, inadvertent computerized child development specialist errors may be present. Thank you for allowing us to participate in the care of this patient. Our consultation addresses complex antimicrobial therapy counseling and treatment Emeka Pruett MD [facility] Infectious [facility] Please contact us via Dryad during business hours. If no response in 15 min, call / page through the case making machine operator Cosigned by La Goldberg MD at 08/20/2024 4:26 PM EDT Associated attestation - La Goldberg MD - 08/20/2024 4:26 PM EDT I performed a history and physical examination of the patient Abbey Garcia, I independently reviewed the laboratory work and imaging as well as other studies mentioned in the above note; I have discussed the management with the resident. I have reviewed the above note, I agree with the findings and plan of care with the following additions: Agree. Discussed with Dr. Garcia via EpicChat today. No objections to discharge. We will arrange outpatient follow up. Thanks so much for the consult. Thank you for allowing us to participate in the care of this patient. La Goldberg MD [facility] Personal Pager: [phone] * Danny DO Rachel - 08/19/2024 1:39 PM EDT Images from the original note were not included. Infectious Diseases - Inpatient daily Progress Note - Patient name: Abbey Garcia Patient Today's Date and Time: 08/19/2024, 1:39 PM Admission Date: 08/16/2024 Assessment/Plan Impression: Klebsiella Bacteremia - 2/2 J-line infection. There is NOT a concurrent Enterococcus infection based on the cultures that we received from [place]. S/P J-Tube removal on 08/17/24. No intra-abdominal abscesses were noted on CT scans from [place]. Susceptibilities from [place] are still pending at this time. The patient remains stable on IV Ceftriaxone at this time with no fevers, normal WBC, and no developing abnormalities surrounding the J tube. Her Ceftriaxone treatment appears to be effective at this time. Recommendations: Continue IV Ceftriaxone 2000 mg daily (Day 314). Anticipate a 2 week antibiotic course. Continue to follow blood cultures. We will attempt to obtain [facility]'s information regarding Klebsiella susceptibilities as soon as possible. An oral medication will be considered depending on those results. Subjective Interval history: The patient reported some mild headache and fatigue. However, she denies any fever, chills, stomachpain, or abnormalities with regards to her colostomy bag. There was no significant leakage at the time of my evaluation. She denies any other symptoms. Objective Physical Examination: BP 110/65 (BP Location: Right arm, Patient Position: Lying) Pulse 98 Temp 36.5 ??C (97.7 ??F) (Oral) Resp 17 Ht 1.676 m (5' 6 ) Wt 86.3 kg (190 lb 4.1 oz) SpO2 96% BMI 30.71 kg/m?? Temperature Range: Temp: 36.5 ??C (97.7 ??F) Temp Av.7 ??C (98 ??F) Min: 36.4 ??C (97.6 ??F) Max: 37 ??C (98.6 ??F) General Appearance: Awake, alert, and in no apparent distress, nontoxic Eyes: Sclera anicteric; conjunctivae clear ENT: Oropharynx clear, without erythema, exudate, no thrush. Neck: Supple, without lymphadenopathy. Pulmonary/Chest: clear to auscultation, no wheezes or rales, and unlabored breathing Cardiovascular: Regular rate and rhythm without murmurs Abdomen: Soft, nontender, nondistended. Colostomy placed over previous J-tube insertion site with no significant abnormalities. Extremities: No cyanosis, edema, no joint effusions. Neurologic: Alert and oriented x 3, nonfocal. strength and sensation grossly normal Skin: No rash no lesions. No pallor Laboratory data: I have independently reviewed the following labs: Results from last 7 days Lab Units 08/19/24 0532 08/18/24 0554 08/17/24 0529 08/16/24 2137 WBC AUTO 10*3/uL 4.69 6.70 5.00 4.37 HEMOGLOBIN g/dL 9.4* 13.4 8.9* 9.0* HEMATOCRIT % 29.3* 42.1 27.7* 27.8* MCV fL 93.9 95.7 94.5 94.2 PLATELETS AUTO 10*3/uL 285 441* 255 227 NEUTROS ABS 10*3/uL -- -- -- 2.67 LYMPHS ABSOLUTE 10*3/uL -- -- -- 1.26 MONOS ABSOLUTE 10*3/uL -- -- -- 0.35 EOS ABSOLUTE 10*3/uL -- -- -- 0.06 BASOS ABSOLUTE 10*3/uL -- -- -- 0.01 Results from last 7 days Lab Units 08/19/24 0415 08/18/24 0554 08/17/24 0529 08/16/24 2137 POTASSIUM mmol/L 3.9 5.1 3.6 3.6 CHLORIDE mmol/L 110* 110* 112* 112* CO2 mmol/L 26 19* 22 21 BUN mg/dL 6* 4* 6* 6* CREATININE mg/dL 0.56* 0.52* 0.47* 0.49* GLUCOSE mg/dL 90 101* 80 89 CALCIUM mg/dL 8.2* 8.5* 7.4* 7.5* ALK PHOS U/L -- -- -- 73 ALT U/L -- -- -- 10 AST U/L -- -- -- 21 No lab exists for component: PROCALCITON Results from last 7 days Lab Units 08/17/24 0626 GLUCOSE U MG/DL mg/dL Normal UROBILINOGEN URINE mg/dL Normal BILIRUBIN U Negative No lab exists for component: TOXIGENICC Imaging Studies: I have reviewed myself the following imaging studies performed in the past 3 days: XR chest 1 view Result Date: 08/18/2024 Right IJ central line lower SVC. No pneumothorax. Minimal basilar atelectasis. Electronically signed: Brad Willingham. No CT results found for the past 3 days No MRI results found for the past 3 days Cultures: Results for orders placed or performed during the hospital encounter of 08/16/24 Blood culture, peripheral #2 Specimen: Blood, Venous Result Value Ref Range Blood Culture No growth at 2 days Blood culture, peripheral #1 Specimen: Blood, Venous Result Value Ref Range Blood Culture No growth at 2 days Medications: busPIRone, 10 mg, oral, TID cefTRIAXone, 2 g, intravenous, q24h dexAMETHasone, 3 mg, oral, Daily escitalopram, 20 mg, oral, Daily fentaNYL, 1 patch, transdermal, q72h heparin (porcine), 5,000 Units, subcutaneous, q12h TANIA insulin lispro, 0-5 Units, subcutaneous, TID with meals And insulin lispro, 0-4 Units, subcutaneous, Nightly levothyroxine, 75 mcg, oral, Daily before breakfast linaCLOtide, 290 mcg, oral, Daily before breakfast liothyronine, 5 mcg, oral, Daily methocarbamol, 750 mg, oral, 4x daily mirtazapine, 45 mg, oral, Nightly pantoprazole, 40 mg, oral, Daily polyethylene glycol, 17 g, oral, Daily topiramate, 100 mg, oral, BID traMADol, 50 mg, oral, q6h traZODone, 100 mg, oral, Nightly This progress note was completed using a voice child development specialist system. Every effort was made to ensure accuracy; however, inadvertent computerized child development specialist errors may be present. Thank you for allowing us to participate in the care of this patient. Our consultation addresses complex antimicrobial therapy counseling and treatment Danny Ramos DO [facility] Please contact us via [employer] during business hours. If no response in 15 min, call / page through the case making machine operator Cosigned by La Goldberg MD at 08/19/2024 2:55 PM EDT Associated attestation - La Goldberg MD - 08/19/2024 2:55 PM EDT I performed a history and physical examination of the patient Abbey Garcia, I independently reviewed the laboratory work and imaging as well as other studies mentioned in the above note; I have seen the patient along with and discussed the management with the Infectious Diseases fellow, Danny Ramos DO I have reviewed the above note, I agree with the findings and plan of care with the following additions and corrections: Agree. Thank you for allowing us to participate in the care of this patient. La Goldberg MD [facility] Personal Pager: [phone] . * Mauricio Garcia MD - 08/19/2024 1:01 PM EDT Images from the original note were not included. [facility] Daily Progress Note - 08/19/2024 1:01 PM; Room: [address] [place] [address] Admission: 08/16/2024 8:48 PM; Length of stay: 3 days THE HOSPITALIST TEAM PREFERS TO USE [employer] FOR NON-URGENT COMMUNICATION 7AM- 7PM. IF I DO NOT RESPOND WITHIN 20 MINUTES OR URGENT MATTERS, PLEASE CALL THROUGH THE WOOL MIXER. FROM 7PM-7AM, PLEASE PAGE [phone](COVR). Code Status: Full Code Barriers to Discharge: Further recommendations from infectious disease Expected Discharge Date: 1 to 2 days Discharge Destination: home Overview Patient is seen for evaluation and management of bacteremia. 34-year-old female with past medical history significant for MAL S, morbid obesity, status post gastric bypass, later on developed gastroparesis status post J-tube placement and central line placement for TPN. Presented from an outside hospital due to Klebsiella and Enterococcus bacteremia. J-tube site concerning for cellulitis status post J-tube removal on 08/17/2024. Subjective seen and evaluated bedside, she is reporting feeling slightly worse today compared to yesterday, feeling more tired, no nausea or vomiting. Physical Exam Visit Vitals BP 110/65 (BP Location: Right arm, Patient Position: Lying) Pulse 98 Temp 36.5 ??C (97.7 ??F) (Oral) Resp 17 Intake/Output Summary (Last 24 hours) at 08/19/2024 1301 Last data filed at 08/18/2024 1803 Gross per 24 hour Intake 50 ml Output 600 ml Net -550 ml Physical Exam Eyes: Pupils: Pupils are equal, round, and reactive to light. Cardiovascular: Rate and Rhythm: Normal rate and regular rhythm. Pulmonary: Effort: Pulmonary effort is normal. Breath sounds: Normal breath sounds. Abdominal: General: Bowel sounds are normal. Palpations: Abdomen is soft. Comments: Erythema around the G-tube site Neurological: General: No focal deficit present. Mental Status: She is alert and oriented to person, place, and time. Estimated body mass index is 30.71 kg/m?? as calculated from the following: Height as of this encounter: 1.676 m (5' 6 ). Weight as of this encounter: 86.3 kg (190 lb 4.1 oz). Assessment and Plan Assessment & Plan Sepsis due to Klebsiella (CMS/HCC) Sepsis due to Enterococcus (CMS/HCC) - source is likely the cellulitis around the J-tube status post J-tube removal. - CT scan from [facility] showing no abscess. - Infectious disease recommendations appreciated, continue with ceftriaxone. - Repeat blood cultures on 08/16: NGTD - central line in place, does not look like infected, continue monitoring, central line care. Gastroparesis - status post central line placement for TPN. Clinical dietitian consulted, patient can resume TPN. - status post J-tube placement which the patient regularly use, status post removal of the J-tube on this admission. - As needed antiemetics Hypothyroidism -Levothyroxine 75 mcg p.o. daily - Monitor TSH and LFTs as well as other thyroid function testing Morbid obesity (CMS/HCC) - Status post gastric bypass complicated by gastroparesis. GERD (gastroesophageal reflux disease) -Pantoprazole 40 mg p.o. daily Chronic pain syndrome - continue with home meds including fentanyl patch and scheduled tramadol. Continue with as needed [place]. MALT (mucosa associated lymphoid tissue) - status postresection. History of adrenal insufficiency - continue with dexamethasone Acquired hypothyroidism - continue with levothyroxine. VTE Prophylaxis: Heparin subcutaneous Scheduled Meds busPIRone, 10 mg, oral, TID cefTRIAXone, 2 g, intravenous, q24h dexAMETHasone, 3 mg, oral, Daily escitalopram, 20 mg, oral, Daily fentaNYL, 1 patch, transdermal, q72h heparin (porcine), 5,000 Units, subcutaneous, q12h TANIA insulin lispro, 0-5 Units, subcutaneous, TID with meals And insulin lispro, 0-4 Units, subcutaneous, Nightly levothyroxine, 75 mcg, oral, Daily before breakfast linaCLOtide, 290 mcg, oral, Daily before breakfast liothyronine, 5 mcg, oral, Daily methocarbamol, 750 mg, oral, 4x daily mirtazapine, 45 mg, oral, Nightly pantoprazole, 40 mg, oral, Daily polyethylene glycol, 17 g, oral, Daily topiramate, 100 mg, oral, BID traMADol, 50 mg, oral, q6h traZODone, 100 mg, oral, Nightly lactated Ringer's, 100 mL/hr, Last Rate: 100 mL/hr (08/19/24 1123) Pertinent Investigations Hematology: Results from last 7 days Lab Units 08/19/24 0532 08/18/24 0554 WBC AUTO 10*3/uL 4.69 6.70 HEMOGLOBIN g/dL 9.4* 13.4 HEMATOCRIT % 29.3* 42.1 MCV fL 93.9 95.7 PLATELETS AUTO 10*3/uL 285 441* Chemistry: Results from last 7 days Lab Units 08/19/24 0415 08/18/24 0554 08/17/24 0529 08/16/24 2137 SODIUM mmol/L 141 137 140 139 POTASSIUM mmol/L 3.9 5.1 3.6 3.6 CHLORIDE mmol/L 110* 110* 112* 112* CO2 mmol/L 26 19* 22 21 BUN mg/dL 6* 4* 6* 6* CREATININE mg/dL 0.56* 0.52* 0.47* 0.49* GLUCOSE mg/dL 90 101* 80 89 MAGNESIUM mg/dL -- -- -- 1.8* CALCIUM mg/dL 8.2* 8.5* 7.4* 7.5* Results from last 7 days Lab Units 08/16/24 2137 AST U/L 21 ALT U/L 10 ALK PHOS U/L 73 BILIRUBIN TOTAL mg/dL 0.4 BILIRUBIN DIRECT mg/dL 0.1 Results from last 7 days Lab Units 08/19/24 1118 08/19/24 0701 08/18/24 2029 08/18/24 1748 08/18/24 1105 08/18/24 0728 POCT GLUCOSE mg/dL 93 93 119* 220* 90 113* Historical Values: (Includes values prior to this admission) No results found for: PREALBUMIN , TSH , T3FREE , FREET4 , CORTISOL , FEV1 , MWV6CTM , DLCO , RVSP , HDL , LDL No results found for: AECEYMPE81 , IRON , TIBC , C3 , C4 , MISAEL , CANCA , ASO , PSA , CEA , CA125 , CA199 , AFP , CA153 Imaging XR chest 1 view Narrative: XR CHEST 1 VIEW 08/18/2024 7:38 PM CLINICAL INDICATIONS: Line placement COMPARISON: None FINDINGS: Right IJ central line tip lower SVC. No pneumothorax. Cardiac silhouette and pulmonary vessels are within normal limits. Renal bandlike atelectasis at the lung bases. No significant pleural effusions. Impression: Right IJ central line lower SVC. No pneumothorax. Minimal basilar atelectasis. Electronically signed: Brad Willingham. Discharge Planning Expected Discharge Disposition: Home or Self Care () Signed Mauricio Garcia MD [facility] 08/19/2024 1:01 PM * Mauricio Garcia MD - 08/18/2024 12:11 PM EDT Images from the original note were not included. [facility] Daily Progress Note - 08/18/2024 12:11 PM; Room: [address] [place] [address] Admission: 08/16/2024 8:48 PM; Length of stay: 2 days THE HOSPITALIST TEAM PREFERS TO USE [employer] FOR NON-URGENT COMMUNICATION 7AM- 7PM. IF I DO NOT RESPOND WITHIN 20 MINUTES OR URGENT MATTERS, PLEASE CALL THROUGH THE WOOL M[employer]ER. FROM 7PM-7AM, PLEASE PAGE [phone](COVR). Code Status: Full Code Barriers to Discharge: Further recommendations from infectious disease Expected Discharge Date: 1 to 2 days Discharge Destination: home Overview Patient is seen for evaluation and management of bacteremia. 34-year-old female with past medical history significant for MAL S, morbid obesity, status post gastric bypass, later on developed gastroparesis status post J-tube placement and central line placement for TPN. Presented from an outside hospital due to Klebsiella and Enterococcus bacteremia. J-tube site concerning for cellulitis status post J-tube removal on 08/17/2024. Subjective seen and evaluated bedside, reporting no new symptoms, overall feeling better today compared to yesterday. Continues to have episodes of nausea and abdominal pain which is chronic for her. Physical Exam Visit Vitals BP 116/67 (BP Location: Right arm, Patient Position: Lying) Pulse 60 Temp 36.6 ??C (97.8 ??F) (Oral) Resp 19 Intake/Output Summary (Last 24 hours) at 08/18/2024 1211 Last data filed at 08/18/2024 0548 Gross per 24 hour Intake 820 ml Output 2150 ml Net -1330 ml Physical Exam Eyes: Pupils: Pupils are equal, round, and reactive to light. Cardiovascular: Rate and Rhythm: Normal rate and regular rhythm. Pulmonary: Effort: Pulmonary effort is normal. Breath sounds: Normal breath sounds. Abdominal: General: Bowel sounds are normal. Palpations: Abdomen is soft. Comments: Erythema around the G-tube site Neurological: General: No focal deficit present. Mental Status: She is alert and oriented to person, place, and time. Estimated body mass index is 30.81 kg/m?? as calculated from the following: Height as of this encounter: 1.676 m (5' 6 ). Weight as of this encounter: 86.6 kg (190 lb 14.7 oz). Assessment and Plan Assessment & Plan Sepsis due to Klebsiella ([facility]/HCC) Sepsis due to Enterococcus ([facility]) - source is likely the cellulitis around the J-tube status post J-tube removal. - CT scan from [facility] showing no abscess. - Infectious disease recommendations appreciated, continue with ceftriaxone. - Repeat blood cultures on 08/16: NGTD - central line in place, does not look like infected, continue monitoring, central line care. Gastroparesis - status post central line placement for TPN. Clinical dietitian consulted, patient can resume TPN. - status post J-tube placement which the patient regularly use, status post removal of the J-tube on this admission. - As needed antiemetics Hypothyroidism -Levothyroxine 75 mcg p.o. daily - Monitor TSH and LFTs as well as other thyroid function testing Morbid obesity ([facility]) - Status post gastric bypass complicated by gastroparesis. GERD (gastroesophageal reflux disease) -Pantoprazole 40 mg p.o. daily Chronic pain syndrome - continue with home meds including fentanyl patch and scheduled tramadol. Continue with as needed [place]. MALT (mucosa associated lymphoid tissue) - status postresection. History of adrenal insufficiency - continue with dexamethasone Acquired hypothyroidism - continue with levothyroxine. VTE Prophylaxis: Heparin subcutaneous Scheduled Meds busPIRone, 10 mg, oral, TID cefTRIAXone, 2 g, intravenous, q24h dexAMETHasone, 3 mg, oral, Daily escitalopram, 20 mg, oral, Daily [START ON 08/19/2024] fentaNYL, 1 patch, transdermal, q72h heparin (porcine), 5,000 Units, subcutaneous, q12h TANIA insulin lispro, 0-5 Units, subcutaneous, TID with meals And insulin lispro, 0-4 Units, subcutaneous, Nightly levothyroxine, 75 mcg, oral, Daily before breakfast linaCLOtide, 290 mcg, oral, Daily before breakfast liothyronine, 5 mcg, oral, Daily methocarbamol, 750 mg, oral, 4x daily mirtazapine, 45 mg, oral, Nightly pantoprazole, 40 mg, oral, Daily topiramate, 100 mg, oral, BID traMADol, 50 mg, oral, q6h traZODone, 100 mg, oral, Nightly Pertinent Investigations Hematology: Results from last 7 days Lab Units 08/18/24 0554 08/17/24 0529 WBC AUTO 10*3/uL 6.70 5.00 HEMOGLOBIN g/dL 13.4 8.9* HEMATOCRIT % 42.1 27.7* MCV fL 95.7 94.5 PLATELETS AUTO 10*3/uL 441* 255 Chemistry: Results from last 7 days Lab Units 08/18/24 0554 08/17/24 0529 08/16/24 2137 SODIUM mmol/L 137 140 139 POTASSIUM mmol/L 5.1 3.6 3.6 CHLORIDE mmol/L 110* 112* 112* CO2 mmol/L 19* 22 21 BUN mg/dL 4* 6* 6* CREATININE mg/dL 0.52* 0.47* 0.49* GLUCOSE mg/dL 101* 80 89 MAGNESIUM mg/dL -- -- 1.8* CALCIUM mg/dL 8.5* 7.4* 7.5* Results from last 7 days Lab Units 08/16/24 2137 AST U/L 21 ALT U/L 10 ALK PHOS U/L 73 BILIRUBIN TOTAL mg/dL 0.4 BILIRUBIN DIRECT mg/dL 0.1 Results from last 7 days Lab Units 08/18/24 1105 08/18/24 0728 08/17/24201008/17/24 1611 08/17/24 1122 08/16/24 2235 POCT GLUCOSE mg/dL 90 113* 105 87 115* 93 Historical Values: (Includes values prior to this admission) No results found for: PREALBUMIN , TSH , T3FREE , FREET4 , CORTISOL , FEV1 , NOC4WGJ , DLCO , RVSP , HDL , LDL No results found for: [id number] , IRON , TIBC , C3 , C4 , MISAEL , CANCA , ASO , PSA , CEA , CA125 , CA199 , AFP , CA153 Imaging No image results found. Discharge Planning Expected Discharge Disposition: Home or Self Care () Signed Mauricio Garcia MD [facility] 08/18/2024 12:11 PM * Emeka Pruett MD - 08/18/2024 7:36 AM EDT Images from the original note were not included. Infectious Diseases - Inpatient daily Progress Note - Patient name: Abbey Garcia Patient Today's Date and Time: 08/18/2024, 2:55 PM Admission Date: 08/16/2024 Assessment/Plan Impression: Klebsiella Bacteremia from J line infection Surgery removed the J line Blood culturs were positive in [facility], new blood cultures are drawn, pending result (no growth last 24 hours) vanc and cefepime were switched to ceftriaxone CT scan were obtained from [facility] and showed no sign of intra abdominal abscesses We called [facility] to get her blood cultures drug sensitivity and they said that they are not out yet, they will send them as soon as they are ready. Recommendations: Continue ceftriaxone for now Follow up on [facility]'s blood cultures Follow up on [facility]'s blood cultures drug sensitivity Subjective Interval history: The patient looks well, sitting in her chair next to her bed, feels better that yesterday, S/P J line removal she reports no fever, chills, or vomiting, she has some nausea but improved. She complains of fluid leaking from her J line insertion site. Objective Physical Examination: BP 116/67 (BP Location: Right arm, Patient Position: Lying) Pulse 60 Temp 36.6 ??C (97.8 ??F) (Oral) Resp 19 Ht 1.676 m (5' 6 ) Wt 86.6 kg (190 lb 14.7 oz) SpO2 97% BMI 30.81 kg/m?? Temperature Range: Temp: 36.6 ??C (97.8 ??F) Temp Av.6 ??C (97.8 ??F) Min: 36.4 ??C (97.6 ??F)Max: 36.8 ??C (98.3 ??F) General Appearance: Awake, alert, and in no apparent distress Eyes: Sclera anicteric; conjunctivae clear Neck: Supple, without lymphadenopathy. Pulmonary/Chest: clear to auscultation, no wheezes or rales, and unlabored breathing Cardiovascular: Regular rate and rhythm without murmurs Abdomen: soft, mild tenderness above the J line insertion site, no palpable masses no organomegaly Extremities: No cyanosis, edema, no joint effusions. Neurologic: Alert and oriented x 3, nonfocal. Skin: No rash no lesions. no pallor Laboratory data: I have independently reviewed the following labs: Results from last 7 days Lab Units 08/18/24 0554 08/17/24 0529 08/16/24 2137 WBC AUTO 10*3/uL 6.70 5.00 4.37 HEMOGLOBIN g/dL 13.4 8.9* 9.0* HEMATOCRIT % 42.1 27.7* 27.8* MCV fL 95.7 94.5 94.2 PLATELETS AUTO 10*3/uL 441* 255 227 NEUTROS ABS 10*3/uL -- -- 2.67 LYMPHS ABSOLUTE 10*3/uL -- -- 1.26 MONOS ABSOLUTE 10*3/uL -- -- 0.35 EOS ABSOLUTE 10*3/uL -- -- 0.06 BASOS ABSOLUTE 10*3/uL -- -- 0.01 Results from last 7 days Lab Units 08/18/24 0554 08/17/24 0529 08/16/24 2137 POTASSIUM mmol/L 5.1 3.6 3.6 CHLORIDE mmol/L 110* 112* 112* CO2 mmol/L 19* 22 21 BUN mg/dL 4* 6* 6* CREATININE mg/dL 0.52* 0.47* 0.49* GLUCOSE mg/dL 101* 80 89 CALCIUM mg/dL 8.5* 7.4* 7.5* ALK PHOS U/L -- -- 73 ALT U/L -- -- 10 AST U/L -- -- 21 No lab exists for component: PROCALCITON Results from last 7 days Lab Units 08/17/24 0626 GLUCOSE U MG/DL mg/dL Normal UROBILINOGEN URINE mg/dL Normal BILIRUBIN U Negative No lab exists for component: TOXIGENICC Imaging Studies: I have reviewed myself the Her CT scan from [facility] and showed no sign of intra abdominalabscesses Cultures: Results for orders placed or performed during the hospital encounter of 08/16/24 Blood culture, peripheral #2 Specimen: Blood, Venous Result Value Ref Range Blood Culture No growth at 18-24 hours Blood culture, peripheral #1 Specimen: Blood, Venous Result Value Ref Range Blood Culture No growth at 18-24 hours Medications: busPIRone, 10 mg, oral, TID cefTRIAXone, 2 g, intravenous, q24h dexAMETHasone, 3 mg, oral, Daily escitalopram, 20 mg, oral, Daily [START ON 08/19/2024] fentaNYL, 1 patch, transdermal, q72h heparin (porcine), 5,000 Units, subcutaneous, q12h TANIA insulin lispro, 0-5 Units, subcutaneous, TID with meals And insulin lispro, 0-4 Units, subcutaneous, Nightly levothyroxine, 75 mcg, oral, Daily before breakfast linaCLOtide, 290 mcg, oral, Daily before breakfast liothyronine, 5 mcg, oral, Daily methocarbamol, 750 mg, oral, 4x daily mirtazapine, 45 mg, oral, Nightly pantoprazole, 40 mg, oral, Daily topiramate, 100 mg, oral, BID traMADol, 50 mg, oral, q6h traZODone, 100 mg, oral, Nightly Thank you for allowing us to participate in the care of this patient. Our consultation addresses complex antimicrobial therapy counseling and treatment Emeka Pruett MD [facility] Please contact us via [employer] chat during business hours. If no response in 15 min, call / page through the case making machine operator Cosigned by La Goldberg MD at 08/18/2024 4:55 PM EDT Associated attestation - La Goldberg MD - 08/18/2024 4:55 PM EDT I performed a history and physical examination of the patient Abbey Garcia, I independently reviewed the laboratory work and imaging as well as other studies mentioned in the above note; I have discussed the management with the resident. I have reviewed the above note, I agree with the findings and plan of care with the following additions: Agree. This consult included complex antimicrobial management and counseling. Thank you for allowing us to participate in the care of this patient. La Goldberg MD [facility] Personal Pager: [phone] * LIA Mireles - 08/17/2024 9:32 AM EDT Advised by [facility] pt is active w/ [facility] for home TPN and the goal will be to resume upon discharge. Sent return referral and updated AVS. * Giovanni Pinto PharmD, [facility] - 08/17/2024 1:51 AM EDT Pharmacy Dosing Service - Vancomycin Initial Consult Note Pharmacy has been consulted for the dosing and evaluation of Drug: Vancomycin Indication: bacteremia AUC 400-600 mg*hr/L and trough 10-20 mcg/mL Other Antimicrobial Regimens: cefepime Labs and Renal Function Total body weight: 85.3 kg (188 lb) [place] body weight: 59.3 kg (130 lb 11.7 oz) Adjusted ideal body weight: 69.7 kg (153 lb 10.2 oz) Body mass index is 30.34 kg/m??. Lab Results Component Value Date WBC 4.37 08/16/2024 Lab Results Component Value Date BUN 6 (L) 08/16/2024 CREATININE 0.49 (L) 08/16/2024 CrCl or renal function: Estimated Creatinine Clearance: 125 mL/min (A) (by C-G formula based on SCrof 0.49 mg/dL (L)). I/O: No intake/output data recorded. Estimated Pharmacokinetic Parameters: Weight used to calculate CrCl and Ke: adjusted body weight (due to obesity) Pharmacokinetic Parameters: Vd: 48.8 L Ke: 0.151 hr -1 T1/2: 4.6 hr Microbiology: -in house blood cultures pending, unable to find positive blood cultures through care everywhere feature in Epic -MRSA Nares ordered? N/A Assessment / Comments: - Abbey Garcia is an 34 y.o. female who transferred from [facility] ED for continued treatment of bacteremia with Klebsiella and Enterococcus. Per RN patient only received one dose of Zosyn while at [facility]. -Current risk factors for nephrotoxicity: None -Comments on renal function / baseline serum creatinine: appears to be at baseline -Recent vancomycin history: No Plan: -Start vancomycin 1250 mg every 8 hours for a predicted AUC of 510 mg*hr/L and trough of 14.8 mcg/mL -Plan to assess peak and trough levels at steady state if therapy is extended beyond 5 days -Check BUN/SCr daily -Pharmacy will follow up daily on culture and sensitivity results and renal function -Please do not hesitate to contact us with comments or questions Thank you, Giovanni Pinto PharmD, BCPS, 08/17/24 documented in this encounter H&P Notes * Josefina Mcgarry MD - 08/17/2024 1:13 AM EDT Images from the original note were not included. Hospital Medicine History and Physical 08/17/2024 1:13 AM THE HOSPITALIST TEAM PREFERS TO USE [employer] FOR NON-URGENT COMMUNICATION 7AM- 7PM. IF I DO NOT RESPOND WITHIN 20 MINUTES OR URGENT MATTERS, PLEASE CALL THROUGH THE WOOL M[employer]ER. FROM 7PM-7AM, PLEASE PAGE [phone](COVR). Chief Complaint No chief complaint on file. History of Present Illness Abbey Garcia is an 34 y.o. [facility] with Klebsiella and Enterococcus. 34-year-old with past medical history significant for MALS syndrome, hypothyroidism, GERD, morbid obesity, PCOS, history of chronic pain syndrome and obstructive sleep apnea. Had gastric bypass done approximately 2 years ago after which patient developed gastroparesis and now is on TPN. She was transferred to [facility] for further management after she was found on blood culture to have bacteremia with Klebsiella and Enterococcus. Patient has already been commenced on ertapenem but not onit while here. She otherwise complains of no other problems except for nausea and vomiting occasionally and diarrhea. Today in the on the floor in bed blood pressure was 110/65, pulse rate was 67 respiration was about14 and pulse oximetry was 100% on room air. Labs done at [facility] prior to coming here showed a sodium of 137 potassium of 3.8 chloride was normal as well as the rest of the basic metabolic panel. CBC WBC was 4.37 hemoglobin 9 hematocrit 27.8 and platelet count is 227,000. Blood cultures have been sent. Patient is being commenced on a combination of vancomycin to be dosed by pharmacy andalso on cefepime. Consult sent also to infectious disease. Review of System and Physical Exam Temp: [36.4 ??C (97.6 ??F)-36.7 ??C (98 ??F)] 36.4 ??C (97.6 ??F) Heart Rate: [57-67] 67 Resp: [17-19] 19 BP: (102-115)/(65-81) 115/81 Physical Exam Review of Systems Constitutional: Positive for appetite change, fatigue and fever. HENT: Negative. Eyes: Negative. Respiratory: Negative. Cardiovascular: Negative. Gastrointestinal: Negative. Endocrine: Negative. Genitourinary: Negative. Musculoskeletal: Negative. Skin: Negative. Neurological: Negative. Hematological: Negative. Psychiatric/Behavioral: Negative. Assessment and Plan 34-year-old lady admitted with Klebsiella/Enterococcus bacteremia. Patient has been commenced on Vanco to be dosed by pharmacy as well as cefepime. Blood cultures collected and will consult infectious disease. Assessment & Plan Bacteremia -Unclear blood cultures - Commence patient on Vanco/cefepime - Monitor patient blood cultures - Also evaluate lab tests and correct abnormalities - Consult infectious disease - Obtain 2D echocardiogram Hypothyroidism -Levothyroxine 75 mcg p.o. daily - Monitor TSH and LFTs as well as other thyroid function testing Morbid obesity (CMS/[facility]) -Weight loss by virtue of diet and exercise GERD (gastroesophageal reflux disease) -Pantoprazole 40 mg p.o. daily DVT prophylaxis is VTE protocols per [facility] GI prophy Protonix Monitor labs) Obtain blood cultures Comments IV Vanco and cefepime Consult infectious diseases Early ambulation I discussed the plan of care with the patient and she is in agreement. VTE Prophylaxis: Heparin subcutaneous. 50 ----- Focus of this inpatient stay will remain on problems that need acute care setting for care. We will review available studies and will order additional labs, imaging and other studies as appropriate. As needed medicines are ordered as appropriate. VTE Prophylaxis will be ordered as appropriate. Please see above for management plan for individual hospital problems. Home medications are reviewed and will be continued as appropriate. Patient will be continued to be followed during this hospital stay by a member of [facility]. Past Medical History Medical History[1] Past Surgical History Surgical History[2] Social History Social History Socioeconomic History Marital status: Spouse name: Not on file Number of children: Not on file Years of education: Not on file Highest education level: Not on file Occupational History Not on file Tobacco Use Smoking status: Never Smokeless tobacco: Never Substance and Sexual Activity Alcohol use: Not on file Drug use: Not on file Sexual activity: Not on file Other Topics Concern Not on file Social History Narrative Not on file Social Drivers of Health Financial Resource Strain: Low Risk (08/16/2024) Overall Financial Resource Strain (CARDIA) Difficulty of Paying Living Expenses: Not hard at all Food Insecurity: No Food Insecurity (08/16/2024) Hunger Vital Sign Worried About Running Out of Food in the Last Year: Never true Ran Out of Food in the Last Year: Not on file Transportation Needs: No Transportation Needs (08/16/2024) Transportation Lack of Transportation (Medical): No Lack of Transportation (Non-Medical): Not on file Physical Activity: Insufficiently Active (06/30/2023) Received from [facility] [place] Exercise Vital Sign Days of Exercise per Week: 3 days Minutes of Exercise per Session: 10 min Stress: Stress Concern Present (06/30/2023) Received from [facility] [place] [facility] [employer] [facility] - Occupational Stress Questionnaire Feeling of Stress : Rather much Social Connections: Moderately Integrated (06/30/2023) Received from [facility] [place] Social Connection and Isolation Panel [NHANES] Frequency of Communication with Friends and Family: Twice a week Frequency of Social Gatherings with Friends and Family: Twice a week Attends Zoroastrian Services: More than 4 times per year Active Member of Clubs or Organizations: No Attends Club or Organization Meetings: Never Marital Status: Intimate Partner Violence: Unknown (08/16/2024) Humiliation, Afraid, Rape, and Kick questionnaire Fear of Current or Ex-Partner: No Emotionally Abused: Not on file Physically Abused: Not on file Sexually Abused: Not on file Housing Stability: Low Risk (08/16/2024) Housing Stability Vital Sign Unable to Pay for Housing in the Last Year: No Number of Times Moved in the Last Year: 0 Homeless in the Last Year: No Family History family history is not on file. Allergies is allergic to codeine, nsaids (non-steroidal anti-inflammatory drug), and adhesive. Prior to Admission Medications Prescriptions Prior to Admission[3] Labs Labs Reviewed BASIC METABOLIC PANEL - Abnormal Result Value Sodium 139 Potassium 3.6 Chloride 112 (*) CO2 21 BUN 6 (*) Creatinine 0.49 (*) Glucose 89 Calcium 7.5 (*) Anion Gap 10 eGFR 126.0 BUN/Creatinine Ratio 12.2 HEPATIC FUNCTION PANEL - Abnormal Total Bilirubin 0.4 Bilirubin, Direct 0.1 Alkaline Phosphatase 73 AST 21 ALT (SGPT) 10 Total Protein 5.4 (*) Albumin 2.9 (*) MAGNESIUM - Abnormal Magnesium 1.8 (*) LACTIC ACID, PLASMA - Abnormal Lactate 0.4 (*) CBC WITH AUTO DIFFERENTIAL - Abnormal Auto WBC 4.37 RBC 2.95 (*) Hemoglobin 9.0 (*) Hematocrit 27.8 (*) MCV 94.2 MCH 30.5 MCHC 32.4 RDW 14.2 Neutrophils % 61.1 Lymphocytes % 28.8 Monocytes % 8.0 Eosinophils % 1.4 Basophils % 0.2 Neutrophils Absolute 2.67 Lymphocytes Absolute 1.26 Monocytes Absolute 0.35 Eosinophils Absolute 0.06 Basophils Absolute 0.01 Platelets 227 nRBC % 0.0 Immature Granulocytes % 0.5 Immature Granulocytes Absolute 0.02 POCT GLUCOSE METER UNSOLICITED RESULTS - Normal Glucose POC 93 Narrative: Waived Testing in the ED is performed under the ED CLIA certificate #[id number]. BLOOD CULTURE BLOOD CULTURE CBC AND DIFFERENTIAL Narrative: The following orders were created for panel order CBC and differential. Procedure Abnormality Status --------- ------ CBC auto differential[[id number]] Abnormal Final result Please view results for these tests on the individual orders. URINALYSIS POCT GLUCOSE METER Imaging No image results found. Signed Josefina Mcgarry MD [facility] 08/17/2024 1:13 AM [1] History reviewed. No pertinent past medical history. [2] History reviewed. No pertinent surgical history. [3] Medications Prior to Admission Medication Sig Dispense Refill Last Dose/Taking acetaminophen (Tylenol) 325 mg tablet Take 650 mg by mouth every 4 (four) hours if needed for mild pain (1-3 pain score). ALBUTEROL INHL Inhale 90 mcg every 6 (six) hours if needed (SOB or wheezing). busPIRone (Buspar) 10 mg tablet Take 10 mg by mouth three times daily. dexAMETHasone (Decadron) 2 mg tablet Take 3 mg by mouth in the morning. ergocalciferol (Vitamin D-2) 1.25 MG (10047 Units) capsule Take 50,000 Units by mouth 1 (one) time per week. escitalopram (Lexapro) 20 mg tablet Take 20 mg by mouth in the morning. fentaNYL (Duragesic) 25 mcg/hr Place 1 patch on the skin every 3rd (third) day. HYDROcodone-acetaminophen ([place]) 5-325 mg tablet Take 1 tablet by mouth every 6 (six) hours if needed for moderate-severe pain (4-10 pain score) (pain). hydrOXYzine HCL (Atarax) 25 mg tablet Take 25 mg by mouth if needed in the morning and at bedtime for itching. levothyroxine (Synthroid, Levoxyl) 75 mcg tablet Take 75 mcg by mouth before breakfast. linaCLOtide (Linzess) 290 mcg capsule Take 290 mcg by mouth before breakfast. Do not crush or chew. liothyronine (Cytomel) 5 mcg tablet Take 5 mcg by mouth in the morning. methocarbamol (Robaxin) 500 mg tablet Take 750 mg by mouth four times daily. metoclopramide (Reglan) 10 mg tablet Take 10 mg by mouth if needed each day (nausea and vomiting). mirtazapine (Remeron) 30 mg tablet Take 45 mg by mouth at bedtime. omeprazole (PriLOSEC) [address] capsule Take 40 mg by mouth before breakfast and before evening meal. Do not crush or chew. prucalopride 2 mg tablet Take 2 mg by mouth in the morning. topiramate (Topamax) 100 mg tablet Take 100 mg by mouth two times daily. traZODone (Desyrel) 100 mg tablet Take 100 mg by mouth at bedtime. documented in this encounter Consult Notes * Mikayla Jennings PA-C - 08/20/2024 2:29 PM EDTAssociated Order(s): Inpatient consult to Vascular Wound Care Images from the original note were not included. [facility] Vascular Surgery/Wound Care CONSULTATION Reason for Consult: Irritation around J-tube removal site Subjective History of Present Illness: Abbey Garcia is a 34 y.o. 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 Patient was transferred from [facility] due to Klebsiella and Enterococcus bacteremia. Had her J-tube removed on 08/17 due to this. Blood cultures drawn on [facility] on 08/16 show no growthat 3 days. Since removal, there has been concern for cellulitis around the removal site. ID is alsofollowing, recommending a 14-day course of ceftriaxone. Endorses pain to removal site. Had a CT done due to drainage from the site which was negative for abscess. Patient denies recent fever or chills. Review of Systems Constitutional: Negative for chills and fever. Respiratory: Negative for shortness of breath. Cardiovascular: Negative for chest pain. Gastrointestinal: Negative for abdominal pain. Neurological: Negative for weakness and numbness. Medical History[1] Surgical History[2] Allergies[3] Current Medications[4] Social History Socioeconomic History Marital status: Spouse name: Not on file Number of children: Not on file Years of education: Not on file Highest education level: Not on file Occupational History Not on file Tobacco Use Smoking status: Never Smokeless tobacco: Never Substance and Sexual Activity Alcohol use: Not on file Drug use: Not on file Sexual activity: Not on file Other Topics Concern Not on file Social History Narrative Not on file Social Drivers of Health Financial Resource Strain: Low Risk (08/16/2024) Overall Financial Resource Strain (CARDIA) Difficulty of Paying Living Expenses: Not hard at all Food Insecurity: No Food Insecurity (08/16/2024) Hunger Vital Sign Worried About Running Out of Food in the Last Year: Never true Ran Out of Food in the Last Year: Not on file Transportation Needs: No Transportation Needs (08/16/2024) Transportation Lack of Transportation (Medical): No Lack of Transportation (Non-Medical): Not on file Physical Activity: Insufficiently Active (06/30/2023) Received from [facility] [place] Exercise Vital Sign Days of Exercise per Week: 3 days Minutes of Exercise per Session: 10 min Stress: Stress Concern Present (06/30/2023) Received from [facility] [place] [facility] [employer] - Occupational Stress Questionnaire Feeling of Stress : Rather much Social Connections: Moderately Integrated (06/30/2023) Received from [facility] [place] Social Connection and Isolation Panel [NHANES] Frequency of Communication with Friends and Family: Twice a week Frequency of Social Gatherings with Friends and Family: Twice a week Attends Zoroastrian Services: More than 4 times per year Active Member of Clubs or Organizations: No Attends Club or Organization Meetings: Never Marital Status: Intimate Partner Violence: Unknown (08/16/2024) Humiliation, Afraid, Rape, and Kick questionnaire Fear of Current or Ex-Partner: No Emotionally Abused: Not on file Physically Abused: Not on file Sexually Abused: Not on file Housing Stability: Low Risk (08/16/2024) Housing Stability Vital Sign Unable to Pay for Housing in the Last Year: No Number of Times Moved in the Last Year: 0 Homeless in the Last Year: No Family History[5] Objective Physical Exam Constitutional: Appearance: Normal appearance. HENT: Head: Normocephalic and atraumatic. Cardiovascular: Rate and Rhythm: Normal rate and regular rhythm. Abdominal: General: There is no distension. Palpations: Abdomen is soft. Tenderness: There is no abdominal tenderness. Skin: General: Skin is warm and dry. Comments: Mild erythema surrounding J-tube removal site. Drainage noted from the site. Ostomy pasteover the wound. Neurological: General: No focal deficit present. Mental Status: She is alert and oriented to person, place, and time. Mental status is at baseline. Psychiatric: Mood and Affect: Mood normal. Behavior: Behavior normal. Thought Content: Thought content normal. Vital Signs: Blood pressure 122/65, pulse 92, temperature 36.6 ??C (97.9 ??F), temperature source Oral, resp. rate 16, height 1.676 m (5' 6 ), weight 86.5 kg (190 lb 11.2 oz), SpO2 95%. Admission Weight: Weight: 85.3 kg (188 lb) Labs Lab Results Component Value Date WBC 5.02 08/20/2024 HGB 9.1 (L) 08/20/2024 HCT 29.1 (L) 08/20/2024 MCV 96.4 08/20/2024 PLT 336 08/20/2024 Lab Results Component Value Date CALCIUM 8.4 (L) 08/20/2024 NA 142 08/20/2024 K 3.7 08/20/2024 CO2 26 08/20/2024 CL 109 (H) 08/20/2024 BUN 4 (L) 08/20/2024 CREATININE 0.54 (L) 08/20/2024 No results found for: AMYLASE No results found for: LIPASE Lab Results Component Value Date ALT 10 08/16/2024 AST 21 08/16/2024 ALKPHOS 73 08/16/2024 No results found for: INR , PROTIME Imaging CT abdomen pelvis w IV contrast Narrative: STUDY: ENHANCED CT OF THE ABDOMEN AND PELVIS CLINICAL INFORMATION: Age/Gender: 34 years / Female History: Concern for abscess. Patient with bacteremia. PROCEDURE: Enhanced CT examination of the abdomen and pelvis was performed after administration of intravenous contrast. Enteric contrast was not administered. All CT scans at this facility use dose modulation, iterative reconstruction, and/or weight based dosing when appropriate to reduce radiation dose to as low as reasonably achievable INTRAVENOUS CONTRAST: 100 mL of 350 COMPARISON: Limited comparison with outside report of CT of the abdomen and pelvis dated 04/11/2024. FINDINGS: LOWER THORAX: Bilateral subsegmental atelectasis, best appreciated on coronal images. Right lower lobe 1.0 cm nodule (4:10-11). Few scattered groundglass opacities, for example in the lingula (4:7). Visualized heart is normal in size. LIVER: Normal in size and configuration. No suspicious mass. Benign hepatic cysts. Subcentimeter hepatic hypodensities, too small to characterize, statistically cystic and benign. BILE DUCTS: Mild central intrahepatic biliary ductal dilatation. No extrahepatic bile duct dilation. GALLBLADDER: Cholecystectomy PANCREAS: Unremarkable. No main pancreatic duct dilation. SPLEEN: Splenomegaly measuring 15.1 cm AP (4:38) ADRENAL GLANDS: No adrenal nodules. KIDNEYS/URETERS: No hydroureteronephrosis. No suspicious renal mass. BLADDER: Distended. REPRODUCTIVE ORGANS: Hysterectomy. No adnexal mass. BOWEL: No disproportionate dilation of the small or large bowel. The appendix is surgically absent. Postsurgical changes status post Isabel-en-Y gastric bypass surgical changes status post partial small bowel resection (4:100). Left lower quadrant ostomy. Moderate colonic stool burden. PERITONEUM/RETROPERITONEUM: No fluid collection, ascites, or pneumoperitoneum. LYMPH NODES: No abdominal or pelvic lymphadenopathy. VESSELS: No abdominal aortic aneurysm. Accessory right renal artery. ABDOMINAL/PELVIC WALL: Postsurgical changes of the ventral wall. BONES: No suspicious osseous lesions. Impression: 1. No CT evidence of intra-abdominal abscess. No acute abdominopelvic abnormality. 2. Moderate colonic stool burden which may represent constipation. Recommend clinical correlation. 3. Distended bladder. Consider catheterization if warranted. 4. Splenomegaly, nonspecific. 5. Mild bilateral subsegmental atelectasis noting few scattered groundglass opacities which may represent infectious/inflammatory process. Recommend attention on follow-up. 6. Right lower lobe 1.0 cm nodule. Recommend follow-up chest CT in 3 months to ensure resolution. Electronically signed: Anabelle Mason. Active Inpatient Problems Principal Problem: Bacteremia Active Problems: Hypothyroidism Morbid obesity (CMS/HCC) GERD (gastroesophageal reflux disease) Sepsis due to Klebsiella (CMS/HCC) Sepsis due to Enterococcus (CMS/HCC) Gastroparesis Chronic pain syndrome MALT (mucosa associated lymphoid tissue) History of adrenal insufficiency Acquired hypothyroidism Vascular/Wound Care Assessment/Plan # J-tube site irritation s/p removal No plans for surgical invention at this time Topical therapy Okay to keep ostomy bag in place for next few days as drainage continues to decrease Skin prep to ant wound, Vashe soak 5 mins, silver alginate, adaptic, heavy drainage pad taped downwith paper tape. Change daily and as needed Antibiotics per ID Will need wound clinic following discharge. Ambulatory referral placed for wound clinic in [place] Thank you for the consult. We will follow Mikayla Jennings PA-C Vascular/Wound Service Please direct primary wound calls to: [phone] Please direct primary vascular calls to: [phone] This note was created with the assistance of a speech-recognition program. While intending to generate a document that accurately reflects the content of the encounter, no guarantee can be provided that every mistake has been identified and corrected by editing Inpatient consult to Vascular Wound Care Consult performed by: Mikayla Jennings PA-C Consult ordered by: Mauricio Garcia MD [1] History reviewed. No pertinent past medical history. [2] History reviewed. No pertinent surgical history. [3] Allergies Allergen Reactions Codeine Nausea And Vomiting Nsaids (Non-Steroidal Anti-Inflammatory Drug) GI intolerance Adhesive Rash [4] Current Facility-Administered Medications: acetaminophen (Tylenol) tablet 650 mg, 650 mg, oral, q6h PRN, LISA Rankin, 650 mg at 08/20/24 0633 albuterol 90 mcg/actuation inhaler 2 puff, 2 puff, inhalation, q6h PRN, Mauricio Garcia MD busPIRone (Buspar) tablet 10 mg, 10 mg, oral, TID, Josefina Mcgarry MD, 10 mg at 08/20/24 1007 cefTRIAXone (Rocephin) IVPB 2 g in NS 50 mL (Mini-Bag Plus), 2 g, intravenous, q24h, Danny Ramos DO,Stopped at 08/19/24 1726 dexAMETHasone (Decadron) tablet 3 mg, 3 mg, oral, Daily, Mauricio Garcia MD, 3 mg at 08/20/24 1007 diphenhydrAMINE (BENADryl) capsule 25 mg, 25 mg, oral, TID PRN, Mauricio Garcia MD, 25 mg at 08/19/24 1655 escitalopram (Lexapro) tablet 20 mg, 20 mg, oral, Daily, Josefina Mcgarry MD, 20 mg at 08/20/24 1007 fentaNYL (Duragesic) 25 mcg/hr 1 patch, 1 patch, transdermal, q72h, Mauricio Garcia MD, 1 patch at 08/19/24 1106 heparin (porcine) injection 5,000 Units, 5,000 Units, subcutaneous, q12h TANIA, Jace Corley PA-C, 5,000 Units at 08/20/24 1007 HYDROcodone-acetaminophen ([place]) 5-325 mg per tablet 1 tablet, 1 tablet, oral, q6h PRN, Josefina Mcgarry MD, 1 tablet at 08/20/24 1007 hydrOXYzine pamoate (Vistaril) capsule 25 mg, 25 mg, oral, BID PRN, Mauricio Garcia MD, 25 mg at 08/19/24 2112 insulin lispro (HumaLOG) injection 0-5 Units, 0-5 Units, subcutaneous, TID with meals, 3 Units at 08/18/24 1818 AND insulin lispro (HumaLOG) injection 0-4 Units, 0-4 Units, subcutaneous, Nightly,Jace Corley PA-C iohexol (OMNIPaque) 350 mg iodine/mL injection 100 mL, 100 mL, intravenous, Once in imaging, MD Nyasia, 100 mL at 08/19/24 1634 lactated Ringer's infusion, 100 mL/hr, intravenous, Continuous, Mauricio Garcia MD, Last Rate: 100 mL/hr at 08/20/24 1216, 100 mL/hr at 08/20/24 1216 levothyroxine (Synthroid, Levoxyl) tablet 75 mcg, 75 mcg, oral, Daily before breakfast, MD Thomas, 75 mcg at 08/20/24 0511 linaCLOtide (Linzess) capsule 290 mcg, 290 mcg, oral, Daily before breakfast, Mauricio Gacria MD, 290 mcg at 08/20/24 0507 liothyronine (Cytomel) tablet 5 mcg, 5 mcg, oral, Daily, Mauricio Garcia MD, 5 mcg at 08/20/24 1006 melatonin tablet 5 mg, 5 mg, oral, Nightly PRN, Jace Corley PA-C, 5 mg at 08/19/24 2112 methocarbamol (Robaxin) tablet 750 mg, 750 mg, oral, 4x daily, Mauricio Garcia MD, 750 mg at 08/20/24 1405 metoclopramide (Reglan) tablet 10 mg, 10 mg, oral, TID PRN, Mauricio Garcia MD, 10 mg at 08/19/24 1411 mirtazapine (Remeron) tablet 45 mg, 45 mg, oral, Nightly, Mauricio Garcia MD, 45 mg at 08/19/24 2110 ondansetron ODT (Zofran-ODT) disintegrating tablet 4 mg, 4 mg, oral, q8h PRN, 4 mg at 08/20/24 1007OR ondansetron HCl (PF) (Zofran) injection 4 mg, 4 mg, intravenous, q6h PRN, Jace Corley PA-C, 4 mg at 08/19/24 0348 pantoprazole (ProtoNix) EC tablet 40 mg, 40 mg, oral, Daily, Josefina Mcgarry MD, 40 mg at 08/20/24 0506 polyethylene glycol (Glycolax) packet 17 g, 17 g, oral, Daily, Mauricio Garcia MD, 17 g at 08/20/24 1006 prochlorperazine (Compazine) tablet 10 mg, 10 mg, oral, TID PRN, Mauricio Garcia MD, 10 mg at 08/19/24 1656 sennosides-docusate sodium (Ant-Colace) 8.6-50 mg per tablet 2 tablet, 2 tablet, oral, BID, MD Nyasia, 2 tablet at 08/20/24 1007 topiramate (Topamax) tablet 100 mg, 100 mg, oral, BID, Mauricio Garcia MD, 100 mg at 08/20/24 1007 traMADol (Ultram) tablet 50 mg, 50 mg, oral, q6h, Mauricio Garcia MD, 50 mg at 08/20/24 1216 traZODone (Desyrel) tablet 100 mg, 100 mg, oral, Nightly, Josefina Mcgarry MD, 100 mg at 111 [5] No family history on file. * Rosa Toledo MD - 08/17/2024 6:43 PM EDT [facility] General Surgery CONSULTATION Reason for Consult: J-tube removal History of Present Illness: Abbey Garcia is a 34 y.o. female presenting with history of MALS syndrome, morbid obesity, had gastric bypass ~2 years ago which patient later developed gastroparesis. Pt is now on TPN, has not used J-tube and there is concern for infection. J-tube appears erythematous around site. Medical History[1] Surgical History[2] Allergies[3] Current Medications[4] Social History Socioeconomic History Marital status: Spouse name: Not on file Number of children: Not on file Years of education: Not on file Highest education level: Not on file Occupational History Not on file Tobacco Use Smoking status: Never Smokeless tobacco: Never Substance and Sexual Activity Alcohol use: Not on file Drug use: Not on file Sexual activity: Not on file Other Topics Concern Not on file Social History Narrative Not on file Social Drivers of Health Financial Resource Strain: Low Risk (08/16/2024) Overall Financial Resource Strain (CARDIA) Difficulty of Paying Living Expenses: Not hard at all Food Insecurity: No Food Insecurity (08/16/2024) Hunger Vital Sign Worried About Running Out of Food in the Last Year: Never true Ran Out of Food in the Last Year: Not on file Transportation Needs: No Transportation Needs (08/16/2024) Transportation Lack of Transportation (Medical): No Lack of Transportation (Non-Medical): Not on file Physical Activity: Insufficiently Active (06/30/2023) Received from [facility] [place] Exercise Vital Sign Days of Exercise per Week: 3 days Minutes of Exercise per Session: 10 min Stress: Stress Concern Present (06/30/2023) Received from [facility] [place] of Occupational Health - Occupational Stress Questionnaire Feeling of Stress : Rather much Social Connections: Moderately Integrated (06/30/2023) Received from [facility] [place] Social Connection and Isolation Panel [NHANES] Frequency of Communication with Friends and Family: Twice a week Frequency of Social Gatherings with Friends and Family: Twice a week Attends Zoroastrian Services: More than 4 times per year Active Member of Clubs or Organizations: No Attends Club or Organization Meetings: Never Marital Status: Intimate Partner Violence: Unknown (08/16/2024) Humiliation, Afraid, Rape, and Kick questionnaire Fear of Current or Ex-Partner: No Emotionally Abused: Not on file Physically Abused: Not on file Sexually Abused: Not on file Housing Stability: Low Risk (08/16/2024) Housing Stability Vital Sign Unable to Pay for Housing in the Last Year: No Number of Times Moved in the Last Year: 0 Homeless in the Last Year: No Family History[5] Physical Exam Constitutional: General: She is not in acute distress. Appearance: Normal appearance. HENT: Head: Normocephalic and atraumatic. Eyes: Extraocular Movements: Extraocular movements intact. Conjunctiva/sclera: Conjunctivae normal. Cardiovascular: Rate and Rhythm: Normal rate and regular rhythm. Pulses: Normal pulses. Heart sounds: Normal heart sounds. Pulmonary: Effort: Pulmonary effort is normal. Breath sounds: Normal breath sounds. Abdominal: Palpations: Abdomen is soft. Comments: J-tube site appears erythematous. J-tube removed, dressed with gauze and tape. Musculoskeletal: Cervical back: Normal range of motion. Skin: General: Skin is warm and dry. Neurological: Mental Status: Mental status is at baseline. Physical Exam Constitutional No distress. Cardiovascular: Normal rate, regular rhythm, normal heart sounds and normal pulses. Pulmonary/Chest Effort normal and breath sounds normal. Skin Skin is warm and dry. Abdomen and Hips Normal appearance. Soft. J-tube site appears erythematous. J-tube removed, dressed with gauze and tape. Vital Signs: Blood pressure 105/59, pulse 69, temperature 36.4 ??C (97.6 ??F), temperature source Oral, resp. rate 18, height 1.676 m (5' 6 ), weight 85.3 kg (188 lb), SpO2 96%. Admission Weight: Weight: 85.3 kg (188 lb) Labs: Lab Results Component Value Date WBC 5.00 08/17/2024 HGB 8.9 (L) 08/17/2024 HCT 27.7 (L) 08/17/2024 MCV 94.5 08/17/2024 PLT 255 08/17/2024 Lab Results Component Value Date CALCIUM 7.4 (L) 08/17/2024 NA 140 08/17/2024 K 3.6 08/17/2024 CO2 22 08/17/2024 CL 112 (H) 08/17/2024 BUN 6 (L) 08/17/2024 CREATININE 0.47 (L) 08/17/2024 No results found for: AMYLASE No results found for: LIPASE Lab Results Component Value Date ALT 10 08/16/2024 AST 21 08/16/2024 ALKPHOS 72 08/16/2024 No results found for: INR , PROTIME Imaging: No image results found. Assessment: Abbey Garcia is a 34 y.o.female with history of MALS syndrome, morbid obesity, had gastric bypass ~2 years ago which patient later developed gastroparesis. Pt is now on TPN and consulted for J-tube removal. J-tube was removed, dressed with gauze & tape. Plan: J-tube was removed General surgery will sign off at this time. Thank you for the consult with the care of this patient. Please call for any questions regarding this patient. Rosa Toledo MD General Surgery Resident, PGY-1 08/17/24 6:43 PM I can be reached via Snuppst 6a-6p [1] History reviewed. No pertinent past medical history. [2] History reviewed. No pertinent surgical history. [3] Allergies Allergen Reactions Codeine Nausea And Vomiting Nsaids (Non-Steroidal Anti-Inflammatory Drug) GI intolerance Adhesive Rash [4] Current Facility-Administered Medications: acetaminophen (Tylenol) tablet 650 mg, 650 mg, oral, q6h PRN, LISA Rankin, 650 mg at 08/17/24 1500 albuterol 90 mcg/actuation inhaler 2 puff, 2 puff, inhalation, q6h PRN, Mauricio Garcia MD busPIRone (Buspar) tablet 10 mg, 10 mg, oral, TID, Josefina Mcgarry MD, 10 mg at 08/17/24 1501 cefTRIAXone (Rocephin) IVPB 2 g in NS 50 mL (Mini-Bag Plus), 2 g, intravenous, q24h, Danny Ramos DO,Stopped at 08/17/24 1716 dexAMETHasone (Decadron) tablet 3 mg, 3 mg, oral, Daily, Mauricio Garcia MD, 3 mg at 08/17/24 1817 escitalopram (Lexapro) tablet 20 mg, 20 mg, oral, Daily, Josefina Mcgarry MD, 20 mg at 08/17/24 0948 [START ON 08/19/2024] fentaNYL (Duragesic) 25 mcg/hr 1 patch, 1 patch, transdermal, q72h, Mauricio Garcia MD heparin (porcine) injection 5,000 Units, 5,000 Units, subcutaneous, q12h TANIA, Jace Corley PA-C, 5,000 Units at 08/17/24 0949 HYDROcodone-acetaminophen ([place]) 5-325 mg per tablet 1 tablet, 1 tablet, oral, q6h PRN, Josefina Mcgarry MD, 1 tablet at 08/17/24 1551 hydrOXYzine pamoate (Vistaril) capsule 25 mg, 25 mg, oral, BID PRN, Mauricio Garcia MD insulin lispro (HumaLOG) injection 0-5 Units, 0-5 Units, subcutaneous, TID with meals AND insulin lispro (HumaLOG) injection 0-4 Units, 0-4 Units, subcutaneous, Nightly, Jace Corley PA-C levothyroxine (Synthroid, Levoxyl) tablet 75 mcg, 75 mcg, oral, Daily before breakfast, MD Thomas, 75 mcg at 08/17/24 0620 [START ON 08/18/2024] linaCLOtide (Linzess) capsule 290 mcg, 290 mcg, oral, Daily before breakfast, Mauricio Garcia MD liothyronine (Cytomel) tablet 5 mcg, 5 mcg, oral, Daily, Mauricio Garcia MD, 5 mcg at 08/17/24 1838 melatonin tablet 5 mg, 5 mg, oral, Nightly PRN, Jace Corley PA-C methocarbamol (Robaxin) tablet 750 mg, 750 mg, oral, 4x daily, Mauricio Garcia MD, 750 mg at 08/17/24 1818 metoclopramide (Reglan) tablet 10 mg, 10 mg, oral, Daily PRN, Mauricio Garcia MD mirtazapine (Remeron) tablet 45 mg, 45 mg, oral, Nightly, Mauricio Garcia MD ondansetron ODT (Zofran-ODT) disintegrating tablet 4 mg, 4 mg, oral, q8h PRN OR ondansetron HCl(PF) (Zofran) injection 4 mg, 4 mg, intravenous, q6h PRN, Jace Corley PA-C, 4 mg at 08/17/24 1551 pantoprazole (ProtoNix) EC tablet 40 mg, 40 mg, oral, Daily, Josefina Mcgarry MD, 40 mg at 08/17/24 0330 topiramate (Topamax) tablet 100 mg, 100 mg, oral, BID, Mauricio Garcia MD traMADol (Ultram) tablet 50 mg, 50 mg, oral, q6h, Mauricio Garcia MD, 50 mg at 08/17/24 1818 traZODone (Desyrel) tablet 100 mg, 100 mg, oral, Nightly, Josefina Mcgarry MD, 100 mg at 330 [5] No family history on file. Cosigned by Donnie Cesar MD at 08/18/2024 1:29 PM EDT Associated attestation - Donnie Cesar MD - 08/18/2024 1:29 PM EDT I saw and evaluated the patient, participating in the paula portions of the service. I have reviewed and supervised the patient visit with Rosa Toledo MD. I discussed the findings and therapeutic planwith Rosa Toledo MD. I agree with the findings, plan, and documentation. Donnie Cesar MD * Ben Morelos MD - 08/17/2024 6:43 PM EDTAssociated Order(s): IP CONSULT TO GENERAL SURGERY General Surgery Plan of Care This note created to associate consult order with date of service. Please see full note by Dr. Toledo. Ben Morelos, DO General Surgery, PGY-2 08/18/24 3:58 PM Cosigned by Donnie Cesar MD at 08/21/2024 10:56 AM EDT * Cecy Recio RD - 08/17/2024 11:18 AM EDTAssociated Order(s): IP CONSULT TO NUTRITION SERVICES Adult Nutrition Assessment: Name: Abbey Garcia Room: 5179/5179-01 Date: 1990 Date of Visit: 08/17/24 Admission Dx: Bacteremia [R78.81] Reason for assessment: high risk + consult for TF Information obtained from: patient, medical record, nursing, physician, and RD record Medical History[1] Current Medications: busPIRone, 10 mg, oral, TID cefepime, 2 g, intravenous, q8h escitalopram, 20 mg, oral, Daily heparin (porcine), 5,000 Units, subcutaneous, q12h TANIA insulin lispro, 0-5 Units, subcutaneous, TID with meals And insulin lispro, 0-4 Units, subcutaneous, Nightly levothyroxine, 75 mcg, oral, Daily before breakfast pantoprazole, 40 mg, oral, Daily traZODone, 100 mg, oral, Nightly vancomycin, 1.25 g, intravenous, q8h Labs: 0 Lab Value Date/Time POCGLU 93 08/16/2024 2235 BUN 6 (L) 08/17/2024 0529 CREATININE 0.47 (L) 08/17/2024 0529 NA 140 08/17/2024 0529 K 3.6 08/17/2024 0529 MG 1.8 (L) 08/16/2024 2137 HGB 8.9 (L) 08/17/2024 0529 WBC 5.00 08/17/2024 0529 Allergies: Allergies[2] Nutrition Problems: Swallowing Assessment: pt denies swallowing difficulty Mouth: pt denies chewing difficulty Abdominal Assessment: Last BM: 08/16 per pt report hx of MALS (dx fall 2022) +J-tube c/o N/V frequent admissions for SBO Pt reported hx of gastroparesis 04/30/2020: s/p GES 53% gastric retention at 1hr (normal range, 37-90%) 14% gastric retention at 2hr (normal range, 30-60%) 1% gastric retention at 4hr (normal range, 0-10%) Impression: NORMAL RATE OF GASTRIC EMPTYING OF SOLID MEAL. 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 + ICV, + R/A 09/03/2020: s/p sleeve gastrectomy 01/29/2022: s/p conversion to gastric bypass 11/11/2022: s/p lap assisted ERCP with sphincterotomy 03/05/2023: s/p median release via laparotomy 05/20/2023: s/p J-tube placement I/O: Urine output: 475 ml Net fluid: +125 ml Appetite: poor Cognition: A/O x 4 Feeding Skills: independent Skin Integrity: No documented skin issues Edema: None documented TPN 11/27/2022-02/2023 Has been on TPN since 05/2023 TPN through [facility] Nutrition Data/Clinical Indicators of Nutrition Status: Height: 167.6 cm (5' 6 ) Weight: 85.3 kg (188 lb) BMI (Calculated): 30.36 Wt Readings from Last 20 Encounters: 08/16/24 85.3 kg (188 lb) Stated 04/11/24 85.2 kg (187 lb 13.3 oz) [facility] admission 01/21/24 87.1 kg (192 lb 0.3 oz) [facility] admission 12/14/23 83.9 kg (185 lb) Office visit, Ortho 10/25/23 83.9 kg (185 lb) 09/11/23 79.4 kg (175 lb) [facility] ED 07/17/23 82.1 kg (181 lb) [facility] admission 12/07/22 83.1 kg (183 lb 3.2 oz) [facility] admission IBW: 59.1 kg (130 lb) UBW: 81.8 kg (180 lb); per pt report Weight change: Pt's wt relatively stable at 180-185 lb over the last several years. Noted that weight this admission is stated and no scale wt yet available. Nutrition Assessment: Visiting pt for initial assessment d/t consult for TF + hx of EN/TPN. Pt has hx of chronic nutrition support ~ TPN and EN via J-tube r/t MALS dx and complicated GI hx (see: Abdominal Assessment above). Transferred from [facility] for blood cultures positive for bacteremia with Klebsiella andEnterococcus ~ new blood cultures drawn and awaiting results. Per ID, suspect source is pt's J-tube site versus [place] with recommendation to remove J-tube. Consult currently in place to GS ~ not yet evaluated patient. Pt reported infusing TPN 5 days/week ~ +lipids 3x/week. Followed closely by [facility] dietitians. Noted that TPN is ordered to infuse daily. [facility] Recommend mechanically altered diet. Suggested patient blenderize & puree foods to a consistency she can drink through a straw forbetter tolerance given recurrent SBO. EN: indicated for po intolerance, altered GI anatomy. Semi-elemental formula indicated for intolerance to standard formula. If doing well on EN, then could startweaning PN. Patient to contact office to let us know if EN is going well. 03/22[facility]20[facility] Plans are to continue with PN until patient transitions to adequate oral/ enteral nutrition >6 months Pt reported that she has not been infusing EN for last several months and will inconsistently use it some days. Initially reported that she boluses EN -> RD advised against bolus feeds with J-tubebut then pt reported that her bolus schedule (when used) was Peptamen 1.5 @ 25 ml/hr for 3-5 hours which is not bolus feeds. Also noted that pt has been educated on not bolusing J-tube in the past which she has attempted to do. Per review of RD record, EN goal is Peptamen 1.5 @ 45 ml/hr 12-22 hr runtime per pt tolerance (22 hr/day is goal w/o TPN, 12-hr/day if infusing TPN); has this TF formula available to her at home. She did report some abdominal discomfort and N/V as reasons for not infusing EN as recommended. Pt was asking for removal of J-tube and to continue nutrition support with TPN.Reviewed [facility] CGRT RD plan with pt to wean off of TPN and transition to EN/oral intakes. Pt reported that oral intakes as generally poor ~ she uses protein ONS mostly for oral intakes + asked for Boost GC in chocolate flavor. Once source identified and removed, recommend re-initiation nutrition support as soon as medically feasible as that is pt's main source of nutrition. Dietary Orders (From admission, onward) Start Ordered 08/16/242119 Regular Diet Diabetic Male (carb 60g/meal) Diet effective now Question Answer Comment Room Service? Yes Carbohydrate restriction: Diabetic Male (carb 60g/meal) 08/16/242120 Meal Intakes: 0-25% Supplements: Not yet offered Supplement Intakes: N/A Nutrition Risk: High Nutrition Needs: Needs based on: ideal body weight (59.1 kg) Calorie needs: 2440-2703 kcals/day based on Equation: 25-30 kcal/kg Protein needs: 59-71 g/day based on 1.0-1.2 g/kg Fluid needs: 1773 ml/day based on 30 ml/kg Enteral Nutrition Recommendations (in the clinical course of EN): Formula: Impact Peptide 1.5, x 22-hr, via J-tube Starting rate: 10 ml/hr Increase by: 10 ml q 12-24 hr Goal rate: 45 ml/hr Free water flush: 30 ml q 4 hr TF at goal provides: 1485 kcals 93 g protein 762 ml of free water 942 ml of free water/d (including TF + flushes) This TF regimen does not provide 100% of RDI/DRI. Nutrition Diagnosis: Inadequate po intakes Related to: altered GI fxn As evidenced by: dependence on nutrition support to meet/provide estimated needs Malnutrition Assessment: Per Registered Dietitian assessment and evaluation, patient does not currently meet criteria OR there is not enough information to support the diagnosis of malnutrition per the clinical criteria set by the Academy of Nutrition and Dietetics (AND) and the [place] Society of Enteral and Parenteral Nutrition (ASPEN). Treatment Plan: Nutrition support: Pending ID + GS recommendations on source of infection and removal plan Recommend re-initiation of nutrition support as medically feasible TPN ~ consult RD for management EN ~ recommendations above in that clinical course, consult RD for management Monitor and encourage adequate po intake (kcals and protein) Trial Boost GC, chocolate, TID (8 fl oz provides 190 kcals and 16 g protein) Monitor wt; prevent significant unplanned wt loss Monitor nutrition-related labs (magnesium, phosphorus, BMP), replace electrolytes prn Goals: Nutrition support re-initiated Adequate po intakes No significant unintentional wt loss GI fxn wnl BG control Nutrition-related labs (magnesium, phosphorus, BMP) wnl To reach the Clinical Dietitian, please utilize The[employer]Vid chat Wednesday-Wednesday from 8AM-4PM or call extension [phone]. For weekends (Wednesday-Wednesday) and holidays, the Clinical Dietitian can be reached via pager [phone]) from 9AM-3PM. The Clinical Nutrition Department is unable to respond to TheraVid chat messages on Sundays and . [1] History reviewed. No pertinent past medical history. [2] Allergies Allergen Reactions Codeine Nausea And Vomiting Nsaids (Non-Steroidal Anti-Inflammatory Drug) GI intolerance Adhesive Rash * Emeka Pruett MD - 08/17/2024 10:23 AM EDT Images from the original note were not included. Infectious Diseases - Initial Consult Note - Patient name: Abbey Garcia Patient Today's Date and Time: 08/17/2024, 10:24 AM Admission Date: 08/16/2024 Impression: Klebsiella Bacteremia possibly from: TPA line infection J line infection Blood culturs were positive in [facility], new blood cultures are drawn, pending results Was started on ertapenem but when arrived to [facility] she was started on vanc and cefepime J line look infected, erythema and pus around the j line, the patinet has a picture of her skin around the j line about when the symptoms has started and there was erythmma of around Recommendations: switch vanc and cefepime to ceftriaxone 2 g daily Follow up on the blood cultures Remove the J line Subjective Reason for consultation / Chief complaint: Bacteremia Referring Provider: Josefina Mcgarry MD History of Present Illness Abbey Garcia is a 34 y.o.-year-old female who was initially admitted on 08/16/2024. She was reffered to our hospital from [facility]. Her symptoms began on Wednesday the 05 of August, she complained of fever, chills, nausea, vomiting, sweating and diarrhea, she drank water and vomitting got worse, she denier dysuria. on Wednesday she called her primary care physician and ordered lab tests, witchshoed leukocytosis 11.46. She didn't seek medical attention until 2 days ago when her symptoms worsened and went to [facility] where they ordered lab tests for her and blood cultures. The cultures grew klebsiella and enterococcus, they started her on ertapenem. When she arrived at our hospital she was switched to vanc and cefepime. She has a J feeding tube since May 2023, a central line since September of 2023, she underwent bypass surgery in 2021 to help her loose weight. According to her her J tube got infected 6 times in the last year. Past Medical History: Medical History[1] Past Surgical History: Surgical History[2] Medications: Scheduled: busPIRone, 10 mg, oral, TID cefepime, 2 g, intravenous, q8h escitalopram, 20 mg, oral, Daily heparin (porcine), 5,000 Units, subcutaneous, q12h TANIA insulin lispro, 0-5 Units, subcutaneous, TID with meals And insulin lispro, 0-4 Units, subcutaneous, Nightly levothyroxine, 75 mcg, oral, Daily before breakfast pantoprazole, 40 mg, oral, Daily traZODone, 100 mg, oral, Nightly vancomycin, 1.25 g, intravenous, q8h Infusions: Social History: Social History Socioeconomic History Marital status: Spouse name: None Number of children: None Years of education: None Highest education level: None Occupational History None Tobacco Use Smoking status: Never Smokeless tobacco: Never Substance and Sexual Activity Alcohol use: None Drug use: None Sexual activity: None Other Topics Concern None Social History Narrative None Social Drivers of Health Financial Resource Strain: Low Risk (08/16/2024) Overall Financial Resource Strain (CARDIA) Difficulty of Paying Living Expenses: Not hard at all Food Insecurity: No Food Insecurity (08/16/2024) Hunger Vital Sign Worried About Running Out of Food in the Last Year: Never true Ran Out of Food in the Last Year: Not on file Transportation Needs: No Transportation Needs (08/16/2024) Transportation Lack of Transportation (Medical): No Lack of Transportation (Non-Medical): Not on file Physical Activity: Insufficiently Active (06/30/2023) Received from [facility] Exercise Vital Sign Days of Exercise per Week: 3 days Minutes of Exercise per Session: 10 min Stress: Stress Concern Present (06/30/2023) Received from [facility] [employer] [place] of Occupational Health - Occupational Stress Questionnaire Feeling of Stress : Rather much Social Connections: Moderately Integrated (06/30/2023) Received from [facility] Social Connection and Isolation Panel [NHANES] Frequency of Communication with Friends and Family: Twice a week Frequency of Social Gatherings with Friends and Family: Twice a week Attends Zoroastrian Services: More than 4 times per year Active Member of Clubs or Organizations: No Attends Club or Organization Meetings: Never Marital Status: Intimate Partner Violence: Unknown (08/16/2024) Humiliation, Afraid, Rape, and Kick questionnaire Fear of Current or Ex-Partner: No Emotionally Abused: Not on file Physically Abused: Not on file Sexually Abused: Not on file Housing Stability: Low Risk (08/16/2024) Housing Stability Vital Sign Unable to Pay for Housing in the Last Year: No Number of Times Moved in the Last Year: 0 Homeless in the Last Year: No Family History: Family History[3] Immunization History: Immunization History Administered Date(s) Administered [employer] Sars-Cov-2 Vaccination 06/23/2020 [employer] SARS-CoV-2 Vaccination 02/18/2021 Allergies: Allergies[4] Review of Systems: General: complains of fevers and chills. Eyes: No double vision or blurry vision. ENT: No sore throat or runny nose. Cardiovascular: No chest pain or palpitations. Lung: No shortness of breath or cough. Abdomen: complains of nausea, vomiting, diarrhea, and abdominal pain. Genitourinary: No increased urinary frequency, or dysuria. Musculoskeletal: complains of muscle aches . Hematologic: No bleeding or bruising. Neurologic: No headache, numbness, or tingling. Objective Physical Examination: BP 106/68 (BP Location: Right arm, Patient Position: Lying) Pulse 67 Temp 36.4 ??C (97.6 ??F) (Oral) Resp 11 Ht 1.676 m (5' 6 ) Wt 85.3 kg (188 lb) SpO2 100% BMI 30.34 kg/m?? Temperature Range: Temp: 36.4 ??C (97.6 ??F) Temp Av.6 ??C (97.8 ??F) Min: 36.4 ??C (97.6 ??F)Max: 36.7 ??C (98 ??F) General Appearance: Awake, alert, looks ill Eyes: Sclera anicteric Neck: Supple Pulmonary/Chest: Clear to auscultation, without wheezes, rales, no rhonchi Cardiovascular: Regular rate and rhythm without murmurs Abdomen: tender around the J tube, nondistended, no palpable masses Extremities: No cyanosis, edema, no joint effusions. Neurologic: Alert and oriented x 3, nonfocall Skin: No rash no lesions. pallor Labs: Results from last 7 days Lab Units 08/17/24 0529 08/16/24 2137 WBC AUTO 10*3/uL 5.00 4.37 HEMOGLOBIN g/dL 8.9* 9.0* HEMATOCRIT % 27.7* 27.8* MCV fL 94.5 94.2 PLATELETS AUTO 10*3/uL 255 227 NEUTROS ABS 10*3/uL -- 2.67 LYMPHS ABSOLUTE 10*3/uL -- 1.26 MONOS ABSOLUTE 10*3/uL -- 0.35 EOS ABSOLUTE 10*3/uL -- 0.06 BASOS ABSOLUTE 10*3/uL -- 0.01 Results from last 7 days Lab Units 08/17/24 0529 08/16/24 2137 POTASSIUM mmol/L 3.6 3.6 CHLORIDE mmol/L 112* 112* CO2 mmol/L 22 21 BUN mg/dL 6* 6* CREATININE mg/dL 0.47* 0.49* CALCIUM mg/dL 7.4* 7.5* TOTAL PROTEIN g/dL -- 5.4* BILIRUBIN TOTAL mg/dL -- 0.4 ALK PHOS U/L -- 73 ALT U/L -- 10 AST U/L -- 21 No lab exists for component: PROCALCITON Results from last 7 days Lab Units 08/17/24 0626 GLUCOSE U MG/DL mg/dL Normal UROBILINOGEN URINE mg/dL Normal BILIRUBIN U Negative Imaging Studies: The patient had a CT scan from an outside organization, still hasn't uploaded on care everywhere Cultures: No results found for: BLOOD CULTURE , URINE CULTURE , WOUND CULTURE , CSF CULTURE , TISSUE CULTURE ONLY No results found for any visits on 08/16/24. Thank you for allowing us to participate in the care of this patient. Our consultation addresses complex antimicrobial therapy counseling and treatment Emeka Pruett MD [facility] Infectious Diseases Please contact us via Dryad during business hours. If no response in 15 min, call / page through the case making machine operator Consults [1] History reviewed. No pertinent past medical history. [2] History reviewed. No pertinent surgical history. [3] No family history on file. [4] Allergies Allergen Reactions Codeine Nausea And Vomiting Nsaids (Non-Steroidal Anti-Inflammatory Drug) GI intolerance Adhesive Rash Cosigned by La Goldberg MD at 08/17/2024 7:33 PM EDT Associated attestation - La Goldberg MD - 08/17/2024 7:33 PM EDT I performed a history and physical examination of the patient Abbey Garcia, I independently reviewed the laboratory work and imaging as well as other studies mentioned in the above note; I have discussed the management with the resident. I have reviewed the above note, I agree with the findings and plan of care with the following additions: Patient's K. Pneumoniae bacteremia likely secondary to infection associated with J line. Surgery has removed the J line- we appreciate the assistance. Patient states that she had a CT abdomen/pelvis at [facility] - will need to track this down. If she didn't have one, I'd recommend one here to exclude intraabdominal abscess that may need drained. Thanks so much for the consult, we will continue to follow. Thank you for allowing us to participate in the care of this patient. La Goldberg MD [facility] Infectious Diseases Personal Pager: [phone] documented in this encounter Miscellaneous Notes * Care Plan - Anna Peres RN - 08/20/2024 2:12 PM EDT The patient is Moderately Stable - Low risk of patient condition declining or worsening The patient's goals for the shift include comfort,rest The clinical goals for the shift include stable vitals, safety Patient is adequate for discharge Problem: Pain - Adult Goal: Verbalizes/displays adequate comfort level or baseline comfort level Outcome: Adequate for Discharge Problem: Safety - Adult Goal: Free from fall injury Outcome: Adequate for Discharge Problem: Discharge Planning Goal: Discharge to home or other facility with appropriate resources Outcome: Adequate for Discharge Problem: Chronic Conditions and Co-morbidities Goal: Patient's chronic conditions and co-morbidity symptoms are monitored and maintained or improved Outcome: Adequate for Discharge * Hospital Course - Mauricio Garcia MD - 08/20/2024 12:25 PM EDT * Assessment & Plan Note - Mauricio Garcia MD - 08/19/2024 1:03 PM EDTAssociated Problem(s): Sepsis due to Klebsiella (CMS/HCC) - source is likely the cellulitis around the J-tube status post J-tube removal. - CT scan from [facility] showing no abscess. - Infectious disease recommendations appreciated, continue with ceftriaxone. - Repeat blood cultures on 08/16: NGTD - central line in place, does not look like infected, continue monitoring, central line care. * Assessment & Plan Note - Mauricio Garcia MD - 08/19/2024 1:03 PM EDTAssociated Problem(s): Sepsis due to Enterococcus (CMS/HCC) - source is likely the cellulitis around the J-tube status post J-tube removal. - CT scan from [facility] showing no abscess. - Infectious disease recommendations appreciated, continue with ceftriaxone. - Repeat blood cultures on 08/16: NGTD - central line in place, does not look like infected, continue monitoring, central line care. * Assessment & Plan Note - Mauricio Garcia MD - 08/19/2024 1:03 PM EDTAssociated Problem(s): Gastroparesis - status post central line placement for TPN. Clinical dietitian consulted, patient can resume TPN. - status post J-tube placement which the patient regularly use, status post removal of the J-tube on this admission. - As needed antiemetics * Assessment & Plan Note - Mauricio Garcia MD - 08/19/2024 1:03 PM EDTAssociated Problem(s): Hypothyroidism -Levothyroxine 75 mcg p.o. daily - Monitor TSH and LFTs as well as other thyroid function testing * Assessment & Plan Note - Mauricio Garcia MD - 08/19/2024 1:03 PM EDTAssociated Problem(s): Morbid obesity (CMS/HCC) - Status post gastric bypass complicated by gastroparesis. * Assessment & Plan Note - Mauricio Garcia MD - 08/19/2024 1:03 PM EDTAssociated Problem(s): GERD (gastroesophageal reflux disease) -Pantoprazole 40 mg p.o. daily * Assessment & Plan Note - Mauricio Garcia MD - 08/19/2024 1:03 PM EDTAssociated Problem(s): Chronic pain syndrome - continue with home meds including fentanyl patch and scheduled tramadol. Continue with as needed [place]. 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 * Assessment & Plan Note - Mauricio Garcia MD - 08/19/2024 1:03 PM EDTAssociated Problem(s): History of adrenal insufficiency - continue with dexamethasone * Assessment & Plan Note - Mauricio Garcia MD - 08/19/2024 1:03 PM EDTAssociated Problem(s): Acquired hypothyroidism - continue with levothyroxine. * Assessment & Plan Note - Mauricio Garcia MD - 08/18/2024 12:20 PM EDTAssociated Problem(s): Hypothyroidism -Levothyroxine 75 mcg p.o. daily - Monitor TSH and LFTs as well as other thyroid function testing * Assessment & Plan Note - Mauricio Garcia MD - 08/18/2024 12:20 PM EDTAssociated Problem(s): Morbid obesity (CMS/HCC) - Status post gastric bypass complicated by gastroparesis. * Assessment & Plan Note - Mauricio Garcia MD - 08/18/2024 12:20 PM EDTAssociated Problem(s): GERD (gastroesophageal reflux disease) -Pantoprazole 40 mg p.o. daily * Assessment & Plan Note - Mauricio Garcia MD - 08/18/2024 12:20 PM EDTAssociated Problem(s): Sepsis due to Klebsiella (CMS/HCC) - source is likely the cellulitis around the J-tube status post J-tube removal. - CT scan from [facility] showing no abscess. - Infectious disease recommendations appreciated, continue with ceftriaxone. - Repeat blood cultures on 08/16: NGTD - central line in place, does not look like infected, continue monitoring, central line care. * Assessment & Plan Note - Mauricio Garcia MD - 08/18/2024 12:20 PM EDTAssociated Problem(s): Sepsis due to Enterococcus ([facility]) - source is likely the cellulitis around the J-tube status post J-tube removal. - CT scan from [facility] showing no abscess. - Infectious disease recommendations appreciated, continue with ceftriaxone. - Repeat blood cultures on 08/16: NGTD - central line in place, does not look like infected, continue monitoring, central line care. * Assessment & Plan Note - Mauricio Garcia MD - 08/18/2024 12:20 PM EDTAssociated Problem(s): Gastroparesis - status post central line placement for TPN. Clinical dietitian consulted, patient can resume TPN. - status post J-tube placement which the patient regularly use, status post removal of the J-tube on this admission. - As needed antiemetics * Assessment & Plan Note - Mauricio Garcia MD - 08/18/2024 12:20 PM EDTAssociated Problem(s): Chronic pain syndrome - continue with home meds including fentanyl patch and scheduled tramadol. Continue with as needed [place]. 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 * Assessment & Plan Note - Mauricio Garcia MD - 08/18/2024 12:20 PM EDTAssociated Problem(s): History of adrenal insufficiency - continue with dexamethasone * Assessment & Plan Note - Mauricio Garcia MD - 08/18/2024 12:20 PM EDTAssociated Problem(s): Acquired hypothyroidism - continue with levothyroxine. * Significant Event - Jagruti Fiore RN - 08/17/2024 9:00 AM EDT 08/17/24 0858 Admission Assessment Questions Verify insurance with patient Yes Do you understand medical disease or what brought you into the hospital? Yes Who is your current PCP? Thomas Alas MD Can I schedule a follow up appointment for you at the time of discharge? No Does patient qualify for Complex Care Management Enrollment? No Do you understand why you are taking your current medications? Yes Are you taking your medications as prescribed? Yes Did patient provide teach back? No Pharmacy Bedside Delivery Status Interested Does the patient have a human services case manager assigned to them through their insurance? No Living Arrangement (Current/Prior to Hospitalization) Private residence (Lives at home with 3 children) Does the patient have history of HHC or SNF? Yes (Hx of [facility] HHC, TPN through [facility]) Assistive Device Not applicable Patient's goal for discharge Home Was patient reminded that goal for discharge is 11am? No Does the patient have transportation at discharge? Yes Type of Residence Private residence Is PT/OT appropriate? No Is PT/OT ordered? No Is SW consult appropriate? No Is SW consult ordered? No Do you understand the benefits of MyChart? Yes Were you able to send link and activate MyChart? MyChart already active Patient follows with [facility] for port management. Dressing changes 1x week via outpatient cancer center. Transfer from [place] for treatment of bacteremia with Klebsiella and Enterococcus. On Cefepime and Vanco. Repeat blood cultures pending. ID consulted. Hx gastric bypass 2 years ago which patient developed gastroparesis and now is on TPN. Jtube in place, may be source of infection. General surgery consulted for possible removal. Stave Cutting Supervisor consulted. TPN through [facility]. * Assessment & Plan Note - Josefina Mcgarry MD - 08/17/2024 1:27 AM EDT Associated Problem(s): Bacteremia -Unclear blood cultures - Commence patient on Vanco/cefepime - Monitor patient blood cultures - Also evaluate lab tests and correct abnormalities - Consult infectious disease - Obtain 2D echocardiogram * Assessment & Plan Note - Josefina Mcgarry MD - 08/17/2024 1:27 AM EDT Associated Problem(s): Hypothyroidism -Levothyroxine 75 mcg p.o. daily - Monitor TSH and LFTs as well as other thyroid function testing * Assessment & Plan Note - Josefina Mcgarry MD - 08/17/2024 1:27 AM EDT Associated Problem(s): Morbid obesity (CMS/HCC) -Weight loss by virtue of diet and exercise * Assessment & Plan Note - Josefina Mcgarry MD - 08/17/2024 1:27 AM EDT Associated Problem(s): GERD (gastroesophageal reflux disease) -Pantoprazole 40 mg p.o. daily DVT prophylaxis is VTE protocols per [facility] GI prophy Protonix Monitor labs) Obtain blood cultures Comments IV Vanco and cefepime Consult infectious diseases Early ambulation I discussed the plan of care with the patient and she is in agreement. documented in this encounter Plan of Treatment Scheduled Orders Name Type Priority Associated Diagnoses Orde r Schedule CBC and differential Lab Routine Bacteremia Expected: 08/27/2024 (Approximate), Expires: 08/20/2025 documented as of this encounter Procedures Procedure Name Priority Date/Time Associated Diagnosis Comments POCT GLUCOSE METER UNSOLICITED RESULTS Routine 08/20/2024 11:10 AM EDT POCT GLUCOSE METER UNSOLICITED RESULTS Routine 08/20/2024 7:41 AM EDT CBC Pending Discharge 08/20/2024 5:17 AM EDT BASIC METABOLIC PANEL Pending Discharge 08/20/2024 5:17 AM EDT POCT GLUCOSE METER UNSOLICITED RESULTS Routine 08/19/2024 8:[address] ABDOMEN PELVIS W IV CONTRAST Routine 08/19/2024 4:57 PM EDT POCT GLUCOSE METER UNSOLICITED RESULTS Routine 08/19/2024 4:54 PM EDT POCT GLUCOSE METER UNSOLICITED RESULTS Routine 08/19/2024 11:18 AM EDT POCT GLUCOSE METER UNSOLICITED RESULTS Routine 08/19/2024 7:01 AM EDT CBC Pending Discharge 08/19/2024 5:32 AM EDT BASIC METABOLIC PANEL Pending Discharge 08/19/2024 4:15 AM EDT POCT GLUCOSE METER UNSOLICITED RESULTS Routine 08/18/2024 8:29 PM EDT XR CHEST 1 VIEW STAT 08/18/2024 8:04 PM EDT POCT GLUCOSE METER UNSOLICITED RESULTS Routine 08/18/2024 5:48 PM EDT POCT GLUCOSE METER UNSOLICITED RESULTS Routine 08/18/2024 11:05 AM EDT POCT GLUCOSE METER UNSOLICITED RESULTS Routine 08/18/2024 7:28 AM EDT CBC Routine 08/18/2024 5:54 AM EDT BASIC METABOLIC PANEL Routine 08/18/2024 5:54 AM EDT POCT GLUCOSE METER UNSOLICITED RESULTS Routine 08/17/2024 8:11 PM EDT POCT GLUCOSE METER UNSOLICITED RESULTS Routine 08/17/2024 4:11 PM EDT POCT GLUCOSE METER UNSOLICITED RESULTS Routine 08/17/2024 11:22 AM EDT URINALYSIS STAT 08/17/2024 6:26 AM EDT CBC Routine 08/17/2024 5:29 AM EDT BASIC METABOLIC PANEL Routine 08/17/2024 5:29 AM EDT POCT GLUCOSE METER UNSOLICITED RESULTS Routine 08/16/2024 10:35 PM EDT CBC WITH AUTO DIFFERENTIAL STAT 08/16/2024 9:37 PM EDT BLOOD CULTURE STAT 08/16/2024 9:37 PM EDT BLOOD CULTURE STAT 08/16/2024 9:37 PM EDT CBC AND DIFFERENTIAL STAT 08/16/2024 9:37 PM EDT MAGNESIUM STAT 08/16/2024 9:37 PM EDT LACTIC ACID, PLASMA STAT 08/16/2024 9 :37 PM EDT HEPATIC FUNCTION PANEL STAT 08/16/2024 9:37 PM EDT BASIC METABOLIC PANEL STAT 08/16/2024 9:37 PM EDT documented in this encounter Results * (ABNORMAL) POCT glucose meter (08/20/2024 11:10 AM EDT) Glucose POC 122(H) 70 - 105 mg/dL 08/20/2024 11:30 AM EDT [facility] ([facility]) Comment:[email or web address] Blood Capillary blood specimen / Unknown 08/20/2024 11:10 AM EDT 08/20/2024 11:30 AM EDT [facility] ([facility]) - 08/20/2024 11:30 AM EDT Waived Testing in the ED is performed under the ED CLIA certificate #[id number]. us Mauricio Garcia MD LAB BLOOD ORDERABLES Final Resu lt Performing Organization Address [facility] Co de Phone Number [facility] ([facility]) [address] [place] [address] * POCT glucose meter (08/20/2024 7:41 AM EDT) Glucose POC 92 70 - 105 mg/dL 08/20/2024 7:52 AM EDT [facility] ([facility]) Comment:[email or web address] Blood Capillary blood specimen / Unknown 08/20/2024 7:41 AM EDT 08/20/2024 7:52 AM EDT [facility] ([facility]) - 08/20/2024 7:52 AM EDT Waived Testing in the ED is performed under the ED CLIA certificate #[id number]. us Mauricio Garcia MD LAB BLOOD ORDERABLES Final Resu lt Performing Organization Address City/[facility]/ZIP Co de Phone Number [facility] ([facility]) [address] [place] [address] * (ABNORMAL) CBC (08/20/2024 5:17 AM EDT) Auto WBC 5.02 4.00 - 10.60 10*3/uL 08/20/2024 6:20 AM EDT [facility] ([facility]) RBC 3.02(L) 3.80 - 5.00 10*6/uL 08/20/2024 6:20 AM EDT [facility] ([facility]) Hemoglobin 9.1(L) 12.0 - 15.0 g/dL 08/20/2024 6:20 AM EDT [facility] ([facility]) Hematocrit 29.1(L) 36.0 - 45.0 % 08/20/2024 6:20 AM EDT [facility] ([facility]) MCV 96.4 82.0 - 98.0 fL 08/20/2024 6:20 AM EDT [facility] ([facility]) MCH 30.1 27.0 - 33.0 pg 08/20/2024 6:20 AM EDT [facility] ([facility]) MCHC 31.3(L) 32.0 - 35.0 g/dL 08/20/2024 6:20 AM EDT [facility] ([facility]) RDW 13.7 11.5 - 15.0 % 08/20/2024 6:20 AM EDT [facility] ([facility]) Platelets 336 150 - 400 10*3/uL 08/20/2024 6:20 AM EDT [facility] ([facility]) Blood Blood sample taken from central line / Unknown Existing Catheter / Unknown 08/20/2024 5:17 AM EDT 08/20/2024 5:58 AM EDT us Mauricio Garcia MD LAB BLOOD ORDERABLES Final Resu lt [facility] ([facility]) [address] [place] [address] * (ABNORMAL) Basic metabolic panel (08/20/2024 5:17 AM EDT) Sodium 142 136 - 145 mmol/L 08/20/2024 6:27 AM [facility] ([facility]) Potassium 3.7 3.5 - 5.1 mmol/L 08/20/2024 6:27 AM [facility] ([facility]) Chloride 109(H) 98 - 107 mmol/L 08/20/2024 6:27 AM [facility] ([facility]) CO2 26 21 - 31 mmol/L 08/20/2024 6:27 AM [facility] ([facility]) BUN 4(L) 7 - 25 mg/dL 08/20/2024 6:27 AM [facility] ([facility]) Creatinine 0.54(L) 0.60 - 1.20 mg/dL 08/20/2024 6:27 AM [facility] ([facility]) Glucose 81 70 - 100 mg/dL 08/20/2024 6:27 AM [facility] ([facility]) Calcium 8.4(L) 8.6 - 10.3 mg/dL 08/20/2024 6:27 AM [facility] ([facility]) Anion Gap 11 7 - 20 mmol/L 08/20/2024 6:27 AM [facility] ([facility]) eGFR 123.1 >60.0 mL/min/1. 73m*2 08/20/2024 6:27 AM [facility] ([facility]) Comment:The [facility] s estimated glomerular filtration rate (eGFR) will no longer include consideration of race in its calculation. The [employer] s eGFR Task Force developed new recommendations for the estimation of the glomerular filtration rate in the [place] They recommend immediate implementation of the new equation refit without the race variable in all laboratories because the calculation does not include race. In addition to not including race in the calculation and reporting, it included diversity in its development, and has acceptable performance characteristics and potential consequences that do not disproportionately affect any one group of individuals. BUN/Creatinine Ratio 7.4 07/0 07/2024 6:27 AM [facility] ([facility]) Blood Blood sample taken from central line / Unknown Existing Catheter / Unknown 08/20/2024 5:17 AM EDT 08/20/2024 5:57 AM EDT us Mauricio Garcia MD LAB BLOOD ORDERABLES Final Resu lt [facility] ([facility]) [address], [place] [id number] * (ABNORMAL) POCT glucose meter (08/19/2024 8:09 PM EDT) Glucose POC 135(H) 70 - 105 mg/dL 08/19/2024 8:20 PM EDT [facility] ([facility]) Comment:[email or web address] Blood Capillary blood specimen / Unknown 08/19/2024 8:09 PM EDT 08/19/2024 8:20 PM EDT Narrative [facility] ([facility]) - 08/19/2024 8:20 PM EDT Waived Testing in the ED is performed under the ED CLIA certificate #[id number]. us Mauricio Garcia MD LAB BLOOD ORDERABLES Final Resu lt Performing Organization Address [facility] Co de Phone Number [facility] ([facility]) [address] [place] [address] * CT abdomen pelvis w IV contrast (08/19/2024 4:57 PM EDT) Anatomical Region Laterality Modality Body, Pelvis, Abdomen Computed T omography 08/20/2024 8:19 AM EDT Impressions 08/20/2024 8:38 AM EDT [address]. No CT evidence of intra-abdominal abscess. No acute abdominopelvic abnormality. 2. Moderate colonic stool burden which may represent constipation. Recommend clinical correlation. 3. Distended bladder. Consider catheterization if warranted. 4. Splenomegaly, nonspecific. 5. Mild bilateral subsegmental atelectasis noting few scattered groundglass opacities which may represent infectious/inflammatory process. Recommend attention on follow-up. 6. Right lower lobe 1.0 cm nodule. Recommend follow-up chest CT in 3 months to ensure resolution. Electronically signed: Anabelle Mason. Narrative 08/20/2024 8:38 AM EDT STUDY: ENHANCED CT OF THE ABDOMEN AND PELVIS CLINICAL INFORMATION: Age/Gender: 34 years / Female History: Concern for abscess. Patient with bacteremia. PROCEDURE: Enhanced CT examination of the abdomen and pelvis was performed after administration of intravenous contrast. Enteric contrast was not administered. All CT scans at this facility use dose modulation, iterative reconstruction, and/or weight based dosing when appropriate to reduce radiation dose to as low as reasonably achievable INTRAVENOUS CONTRAST: 100 mL of 350 COMPARISON: Limited comparison with outside report of CT of the abdomen and pelvis dated 04/11/2024. FINDINGS: LOWER THORAX: Bilateral subsegmental atelectasis, best appreciated on coronal images. Right lower lobe 1.0 cm nodule (4:10-11). Few scattered groundglass opacities, for example in the lingula (4:7). Visualized heart is normal in size. LIVER: Normal in size and configuration. No suspicious mass. Benign hepatic cysts. Subcentimeter hepatic hypodensities, too small to characterize, statistically cystic and benign. BILE DUCTS: Mild central intrahepatic biliary ductal dilatation. No extrahepatic bile duct dilation. GALLBLADDER: Cholecystectomy PANCREAS: Unremarkable. No main pancreatic duct dilation. SPLEEN: Splenomegaly measuring 15.1 cm AP (4:38) ADRENAL GLANDS: No adrenal nodules. KIDNEYS/URETERS: No hydroureteronephrosis. No suspicious renal mass. BLADDER: Distended. REPRODUCTIVE ORGANS: Hysterectomy. No adnexal mass. BOWEL: No disproportionate dilation of the small or large bowel. The appendix is surgically absent. Postsurgical changes status post Isabel-en-Y gastric bypass surgical changes status post partial small bowel resection (4:100). Left lower quadrant ostomy. Moderate colonic stool burden. PERITONEUM/RETROPERITONEUM: No fluid collection, ascites, or pneumoperitoneum. LYMPH NODES: No abdominal or pelvic lymphadenopathy. VESSELS: No abdominal aortic aneurysm. Accessory right renal artery. ABDOMINAL/PELVIC WALL: Postsurgical changes of the ventral wall. BONES: No suspicious osseous lesions. Procedure Note Anabelle Mason MD - 08/20/2024 STUDY: ENHANCED CT OF THE ABDOMEN AND PELVIS CLINICAL INFORMATION: Age/Gender: 34 years / Female History: Concern for abscess. Patient with bacteremia. PROCEDURE: Enhanced CT examination of the abdomen and pelvis was performedafter administration of intravenous contrast. Enteric contrast was notadministered. All CT scans at this facility use dose modulation, iterativereconstruction, and/or weight based dosing when appropriate to reduce radiation dose to aslow as reasonably achievable INTRAVENOUS CONTRAST: 100 mL of 350 COMPARISON: Limited comparison with outside report of CT of the abdomenand pelvis dated 04/11/2024. FINDINGS: LOWER THORAX: Bilateral subsegmental atelectasis, best appreciated oncoronal images. Right lower lobe 1.0 cm nodule (4:10-11). Few scatteredgroundglass opacities, for example in the lingula (4:7). Visualized heart is normal insize. LIVER: Normal in size and configuration. No suspicious mass. Benignhepatic cysts. Subcentimeter hepatic hypodensities, too small to characterize, statistically cystic and benign. BILE DUCTS: Mild central intrahepatic biliary ductal dilatation. Noextrahepatic bile duct dilation. GALLBLADDER: Cholecystectomy PANCREAS: Unremarkable. No main pancreatic duct dilation. SPLEEN: Splenomegaly measuring 15.1 cm AP (4:38) ADRENAL GLANDS: No adrenal nodules. KIDNEYS/URETERS: No hydroureteronephrosis. No suspicious renal mass. BLADDER: Distended. REPRODUCTIVE ORGANS: Hysterectomy. No adnexal mass. BOWEL: No disproportionate dilation of the small or large bowel. Theappendix is surgically absent. Postsurgical changes status post Isabel-en-Y gastricbypass surgical changes status post partial small bowel resection (4:100). Leftlower quadrant ostomy. Moderate colonic stool burden. PERITONEUM/RETROPERITONEUM: No fluid collection, ascites, orpneumoperitoneum. LYMPH NODES: No abdominal or pelvic lymphadenopathy. VESSELS: No abdominal aortic aneurysm. Accessory right renal artery. ABDOMINAL/PELVIC WALL: Postsurgical changes of the ventral wall. BONES: No suspicious osseous lesions. IMPRESSION: 1.No CT evidence of intra-abdominal abscess. No acute abdominopelvic abnormality. 2.Moderate colonic stool burden which may represent constipation.Recommend clinical correlation. 3.Distended bladder. Consider catheterization if warranted. 4.Splenomegaly, nonspecific. 5.Mild bilateral subsegmental atelectasis noting few scatteredgroundglass opacities which may represent infectious/inflammatory process. Recommend attention on follow-up. 6.Right lower lobe 1.0 cm nodule. Recommend follow-up chest CT in 3months to ensure resolution. Electronically signed: Anabelle Mason. Mauricio Garcia MD IM CT PROCEDURES Final Result * (ABNORMAL) POCT glucose meter (08/19/2024 4:54 PM EDT) Glucose POC 146(H) 70 - 105 mg/dL 08/19/2024 5:05 PM EDT [facility] ([facility]) Comment:[email or web address] Blood Capillary blood specimen / Unknown 08/19/2024 4:54 PM EDT 08/19/2024 5:05 PM EDT [facility] ([facility]) - 08/19/2024 5:05 PM EDT Waived Testing in the ED is performed under the ED CLIA certificate #[id number]. us Mauricio Garcia MD LAB BLOOD ORDERABLES Final Resu lt Performing Organization Address [facility]/ZIP Co de Phone Number [facility] ([facility]) [address] [place] [address] * POCT glucose meter (08/19/2024 11:18 AM EDT) Glucose POC 93 70 - 105 mg/dL 08/19/2024 11:29 AM EDT [facility] ([facility]) Comment:[email or web address] Blood Capillary blood specimen / Unknown 08/19/2024 11:18 AM EDT 08/19/2024 11:29 AM EDT [facility] ([facility]) - 08/19/2024 11:29 AM EDT Waived Testing in the ED is performed under the ED CLIA certificate #[id number]. us Mauricio Garcia MD LAB BLOOD ORDERABLES Final Resu lt Performing Organization Address City/[facility]/ZIP Co de Phone Number [facility] ([facility]) [address] [place] [address] * POCT glucose meter (08/19/2024 7:01 AM EDT) Glucose POC 93 70 - 105 mg/dL 08/19/2024 7:12 AM EDT [facility] ([facility]) Comment:[email or web address] Blood Capillary blood specimen / Unknown 08/19/2024 7:01 AM EDT 08/19/2024 7:12 AM EDT Narrative [facility] ([facility]) - 08/19/2024 7:12 AM EDT Waived Testing in the ED is performed under the ED CLIA certificate #[id number]. us Mauricio Garcia MD LAB BLOOD ORDERABLES Final Resu lt [facility] ([facility]) [address] [place] [address] * (ABNORMAL) CBC (08/19/2024 5:32 AM EDT) Auto WBC 4.69 4.00 - 10.60 10*3/uL 08/19/2024 6:26 AM EDT [facility] ([facility]) RBC 3.12(L) 3.80 - 5.00 10*6/uL 08/19/2024 6:26 AM EDT [facility] ([facility]) Hemoglobin 9.4(L) 12.0 - 15.0 g/dL 08/19/2024 6:26 AM EDT [facility] ([facility]) Hematocrit 29.3(L) 36.0 - 45.0 % 08/19/2024 6:26 AM EDT [facility] ([facility]) MCV 93.9 82.0 - 98.0 fL 08/19/2024 6:26 AM EDT [facility] ([facility]) MCH 30.1 27.0 - 33.0 pg 08/19/2024 6:26 AM EDT [facility] ([facility]) MCHC 32.1 32.0 - 35.0 g/dL 08/19/2024 6:26 AM EDT [facility] ([facility]) RDW 13.5 11.5 - 15.0 % 08/19/2024 6:26 AM EDT [facility] ([facility]) Platelets 285 150 - 400 10*3/uL 08/19/2024 6:26 AM EDT [facility] ([facility]) Blood Blood sample taken from central line / Unknown Existing Catheter / Unknown 08/19/2024 5:32 AM EDT 08/19/2024 5:54 AM EDT us Mauricio Garcia MD LAB BLOOD ORDERABLES Final Resu lt [facility] ([facility]) [address] [place] [address] * (ABNORMAL) Basic metabolic panel (08/19/2024 4:15 AM EDT) Sodium 141 136 - 145 mmol/L 08/19/2024 5:02 AM EDT [facility] ([facility]) Potassium 3.9 3.5 - 5.1 mmol/L 08/19/2024 5:02 AM EDT [facility] ([facility]) Chloride 110(H) 98 - 107 mmol/L 08/19/2024 5:02 AM EDT [facility] ([facility]) CO2 26 21 - 31 mmol/L 08/19/2024 5:02 AM EDT [facility] ([facility]) BUN 6(L) 7 - 25 mg/dL 08/19/2024 5:02 AM EDT [facility] ([facility]) Creatinine 0.56(L) 0.60 - 1.20 mg/dL 08/19/2024 5:02 AM EDT [facility] ([facility]) Glucose 90 70 - 100 mg/dL 08/19/2024 5:02 AM EDT [facility] ([facility]) Calcium 8.2(L) 8.6 - 10.3 mg/dL 08/19/2024 5:02 AM EDT [facility] ([facility]) Anion Gap 9 7 - 20 mmol/L 08/19/2024 5:02 AM EDT [facility] ([facility]) eGFR 122.0 >60.0 mL/min/1. 73m*2 08/19/2024 5:02 AM EDT [facility] ([facility]) Comment:The [facility] s estimated glomerular filtration rate (eGFR) will no longer include consideration of race in its calculation. The [employer] s eGFR Task Force developed new recommendations for the estimation of the glomerular filtration rate in the [place] They recommend immediate implementation of the new equation refit without the race variable in all laboratories because the calculation does not include race. In addition to not including race in the calculation and reporting, it included diversity in its development, and has acceptable performance characteristics and potential consequences that do not disproportionately affect any one group of individuals. BUN/Creatinine Ratio 10.7 0706/2024 5:02 AM EDT [facility] ([facility]) Blood Blood sample taken from central line / Unknown Existing Catheter / Unknown 08/19/2024 4:15 AM EDT 08/19/2024 4:31 AM EDT us Mauricio Garcia MD LAB BLOOD ORDERABLES Final Resu lt Performing Organization Address City/[facility]/ZIP Co de Phone Number [facility] ([facility]) [address], [place] [id number] * (ABNORMAL) POCT glucose meter (08/18/2024 8:29 PM EDT) [facility] Glucose POC 119(H) 70 - 105 mg/dL 08/18/2024 8:39 PM EDT [facility] ([facility]) Comment:[email or web address] Blood Capillary blood specimen / Unknown 08/18/2024 8:29 PM EDT 08/18/2024 8:39 PM EDT Narrative [facility]) - 08/18/2024 8:39 PM EDT Waived Testing in the ED is performed under the ED CLIA certificate #[id number]. us Mauricio Garcia MD LAB BLOOD ORDERABLES Final Resu lt Performing Organization Address City/[facility]/ZIP Co de Phone Number [facility]) [address], [place] [id number] * XR chest 1 view (08/18/2024 8:04 PM EDT) Anatomical Region Laterality Modality Chest Computed Radiogr aphy 08/18/2024 8:43 PM EDT Impressions 08/18/2024 8:44 PM EDT Right IJ central line lower SVC. No pneumothorax. Minimal basilar atelectasis. Electronically signed: Brad Willingham. Narrative 08/18/2024 8:44 PM EDT XR CHEST 1 VIEW 08/18/2024 7:38 PM CLINICAL INDICATIONS: Line placement COMPARISON: None FINDINGS: Right IJ central line tip lower SVC. No pneumothorax. Cardiac silhouette and pulmonary vessels are within normal limits. Renal bandlike atelectasis at the lung bases. No significant pleural effusions. Procedure Note Brad Willingham MD - 08/18/2024 XR CHEST 1 VIEW 08/18/2024 7:38 PM CLINICAL INDICATIONS: Line placement COMPARISON: None FINDINGS: Right IJ central line tip lower SVC. No pneumothorax. Cardiac silhouette and pulmonary vessels are within normal limits. Renalbandlike atelectasis at the lung bases. No significant pleural effusions. IMPRESSION: Right IJ central line lower SVC. No pneumothorax. Minimal basilar atelectasis. Electronically signed: Brad Willingham. Mauricio Garcia MD IMG XR PROCEDURES Final Result * (ABNORMAL) POCT glucose meter (08/18/2024 5:48 PM EDT) [facility] Glucose POC 220(H) 70 - 105 mg/dL 08/18/2024 5:59 PM EDT [facility] ([facility]) Comment:[email or web address] Blood Capillary blood specimen / Unknown 08/18/2024 5:48 PM EDT 08/18/2024 5:59 PM EDT Narrative [facility] ([facility]) - 08/18/2024 5:59 PM EDT Waived Testing in the ED is performed under the ED CLIA certificate #[id number]. Mauricio Garcia MD LAB BLOOD ORDERABLES Final Resu lt [facility] ([facility]) [address] [place] [address] * POCT glucose meter (08/18/2024 11:05 AM EDT) Glucose POC 90 70 - 105 mg/dL 08/18/2024 11:16 AM EDT [facility] ([facility]) Comment:[email or web address] Blood Capillary blood specimen / Unknown 08/18/2024 11:05 AM EDT 08/18/2024 11:16 AM EDT [facility] ([facility]) - 08/18/2024 11:16 AM EDT Waived Testing in the ED is performed under the ED CLIA certificate #[id number]. us Mauricio Garcia MD LAB BLOOD ORDERABLES Final Resu lt Performing Organization Address City/[facility]/ZIP Co de Phone Number [facility]) [address], [place] [id number] * (ABNORMAL) POCT glucose meter (08/18/2024 7:28 AM EDT) [facility] Signature Glucose POC 113(H) 70 - 105 mg/dL 08/18/2024 7:39 AM EDT [facility] ([facility]) Comment:[email or web address] Blood Capillary blood specimen / Unknown 08/18/2024 7:28 AM EDT 08/18/2024 7:39 AM EDT [facility] ([facility]) - 08/18/2024 7:39 AM EDT Waived Testing in the ED is performed under the ED CLIA certificate #[id number]. us Mauricio Garcia MD LAB BLOOD ORDERABLES Final Resu lt [facility]) [address] [place] [address] * (ABNORMAL) CBC (08/18/2024 5:54 AM EDT) Auto WBC 6.70 4.00 - 10.60 10*3/uL 08/18/2024 7:58 AM EDT [facility] ([facility]) RBC 4.40 3.80 - 5.00 10*6/uL 08/18/2024 7:58 AM EDT [facility] ([facility]) Hemoglobin 13.4 12.0 - 15.0 g/dL 08/18/2024 7:58 AM EDT [facility] ([facility]) Hematocrit 42.1 36.0 - 45.0 % 08/18/2024 7:58 AM EDT [facility] ([facility]) MCV 95.7 82.0 - 98.0 fL 08/18/2024 7:58 AM EDT [facility] ([facility]) MCH 30.5 27.0 - 33.0 pg 08/18/2024 7:58 AM EDT [facility] ([facility]) MCHC 31.8(L) 32.0 - 35.0 g/dL 08/18/2024 7:58 AM EDT [facility] ([facility]) RDW 13.6 11.5 - 15.0 % 08/18/2024 7:58 AM EDT [facility] ([facility]) Platelets 441(H) 150 - 400 10*3/uL 08/18/2024 7:58 AM EDT [facility] ([facility]) Blood Venous blood specimen / Unknown Existing Catheter / Unknown 08/18/2024 5:54 AM EDT 08/18/2024 6:31 AM EDT us Mauricio Garcia MD LAB BLOOD ORDERABLES Final Resu lt [facility]) [address] [place] [address] * (ABNORMAL) Basic metabolic panel (08/18/2024 5:54 AM EDT) Sodium 137 136 - 145 mmol/L 08/18/2024 7:17 AM EDT [facility] ([facility]) Potassium 5.1 3.5 - 5.1 mmol/L 08/18/2024 7:17 AM EDT [facility] ([facility]) Chloride 110(H) 98 - 107 mmol/L 08/18/2024 7:17 AM EDT [facility] ([facility]) CO2 19(L) 21 - 31 mmol/L 08/18/2024 7:17 AM EDT [facility] ([facility]) BUN 4(L) 7 - 25 mg/dL 08/18/2024 7:17 AM EDT [facility] ([facility]) Creatinine 0.52(L) 0.60 - 1.20 mg/dL 08/18/2024 7:17 AM EDT [facility] ([facility]) Glucose 101(H) 70 - 100 mg/dL 08/18/2024 7:17 AM EDT [facility] ([facility]) Calcium 8.5(L) 8.6 - 10.3 mg/dL 08/18/2024 7:17 AM EDT [facility] ([facility]) Anion Gap 13 7 - 20 mmol/L 08/18/2024 7:17 AM EDT [facility] ([facility]) eGFR 124.2 >60.0 mL/min/1. 73m*2 08/18/2024 7:17 AM EDT [facility] ([facility]) Comment:The [facility] s estimated glomerular filtration rate (eGFR) will no longer include consideration of race in its calculation. The [employer] s eGFR Task Force developed new recommendations for the estimation of the glomerular filtration rate in the [place] They recommend immediate implementation of the new equation refit without the race variable in all laboratories because the calculation does not include race. In addition to not including race in the calculation and reporting, it included diversity in its development, and has acceptable performance characteristics and potential consequences that do not disproportionately affect any one group of individuals. BUN/Creatinine Ratio 7.7 07/0 05/2024 7:17 AM EDT [facility] ([facility]) Blood Venous blood specimen / Unknown Existing Catheter / Unknown 08/18/2024 5:54 AM EDT 08/18/2024 6:29 AM EDT us Mauricio Garcia MD LAB BLOOD ORDERABLES Final Resu lt [facility] ([facility]) [address] [place] [address] * POCT glucose meter (08/17/2024 8:11 PM EDT) Glucose POC 105 70 - 105 mg/dL 08/17/2024 8:22 PM EDT [facility] ([facility]) Comment:[email or web address] Blood Capillary blood specimen / Unknown 08/17/2024 8:11 PM EDT 08/17/2024 8:22 PM EDT [facility] ([facility]) - 08/17/2024 8:22 PM EDT Waived Testing in the ED is performed under the ED CLIA certificate #[id number]. us Mauricio Garcia MD LAB BLOOD ORDERABLES Final Resu lt Performing Organization Address [facility]/ZIP Co de Phone Number [facility]) [address] [place] [address] * POCT glucose meter (08/17/2024 4:11 PM EDT) Glucose POC 87 70 - 105 mg/dL 08/17/2024 4:21 PM EDT [facility] ([facility]) Comment:[email or web address] Blood Capillary blood specimen / Unknown 08/17/2024 4:11 PM EDT 08/17/2024 4:21 PM EDT [facility] ([facility]) - 08/17/2024 4:21 PM EDT Waived Testing in the ED is performed under the ED CLIA certificate #[id number]. us Mauricio Garcia MD LAB BLOOD ORDERABLES Final Resu lt Performing Organization Address City/[facility]/ZIP Co de Phone Number [facility] ([facility]) [address] [place] [address] * (ABNORMAL) POCT glucose meter (08/17/2024 11:22 AM EDT) Glucose POC 115(H) 70 - 105 mg/dL 08/17/2024 11:32 AM EDT [facility] ([facility]) Comment:[email or web address] Blood Capillary blood specimen / Unknown 08/17/2024 11:22 AM EDT 08/17/2024 11:32 AM EDT Narrative [facility] ([facility]) - 08/17/2024 11:32 AM EDT Waived Testing in the ED is performed under the ED CLIA certificate #[id number]. us Mauricio Garcia MD LAB BLOOD ORDERABLES Final Resu lt [facility] ([facility]) [address] [place] [address] * Urinalysis (08/17/2024 6:26 AM EDT) Color, Urine Yellow Colorless, Yellow, Light-Yellow 08/17/2024 6:45 AM EDT [facility] ([facility]) Clarity, Urine Clear Clear 08/17/2024 6:45 AM EDT [facility] ([facility]) pH, Urine 6.0 5.0 - 8.0 pH 08/17/2024 6:45 AM EDT [facility] ([facility]) Leukocytes, Urine Negative Negative 08/17/2024 6:45 AM EDT [facility] ([facility]) Nitrite, Urine Negative Negative 08/17/2024 6:45 AM EDT [facility] ([facility]) Protein, Urine Negative Negative mg/dL 08/17/2024 6:45 AM EDT [facility] ([facility]) Glucose, Urine Normal Normal mg/dL 08/18/19 25 6:45 AM EDT [facility] ([facility]) Bilirubin, Urine Negative Negative 08/17/2024 6:45 AM EDT [facility] ([facility]) Specific [place], Urine 1.019 1.010 - 1.030 08/17/2024 6:45 AM EDT [facility] ([facility]) Ketones, Urine Negative Negative mg/dL 08/17/2024 6:45 AM EDT [facility] ([facility]) Blood, Urine Negative Negative 08/17/2024 6:45 AM EDT [facility] ([facility]) Urobilinogen, Urine Normal Normal mg/dL 08/17/2024 6:45 AM EDT [facility] ([facility]) Urine Urine specimen obtained by clean catch procedure / Unknown Non-blood Collection / Unknown 08/17/2024 6:26 AM EDT 08/17/2024 6:32 AM EDT Narrative [facility] ([facility]) - 08/17/2024 6:45 AM EDT Microscopics not performed on urines with negative chemical reactions unless requested on original order. Jace Corley PA-C LAB URINE ORDERABLES Final Res ult [facility] ([facility]) [address] [place] [address] * (ABNORMAL) CBC (08/17/2024 5:29 AM EDT) Auto WBC 5.00 4.00 - 10.60 10*3/uL 08/17/2024 6:12 AM EDT [facility] ([facility]) RBC 2.93(L) 3.80 - 5.00 10*6/uL 08/17/2024 6:12 AM EDT [facility] ([facility]) Hemoglobin 8.9(L) 12.0 - 15.0 g/dL 08/17/2024 6:12 AM EDT [facility] ([facility]) Hematocrit 27.7(L) 36.0 - 45.0 % 08/17/2024 6:12 AM EDT [facility] ([facility]) MCV 94.5 82.0 - 98.0 fL 08/17/2024 6:12 AM EDT [facility] ([facility]) MCH 30.4 27.0 - 33.0 pg 08/17/2024 6:12 AM EDT [facility] ([facility]) MCHC 32.1 32.0 - 35.0 g/dL 08/17/2024 6:12 AM EDT [facility] ([facility]) RDW 14.2 11.5 - 15.0 % 08/17/2024 6:12 AM EDT [facility] ([facility]) Platelets 255 150 - 400 10*3/uL 08/17/2024 6:12 AM EDT [facility] ([facility]) Blood Venous blood specimen / Unknown Existing Catheter / Unknown 08/17/2024 5:29 AM EDT 08/17/2024 5:50 AM EDT us Jace Corley PA-C LAB BLOOD ORDERABLES Final Res ult [facility] ([facility]) [address] [place] [address] * (ABNORMAL) Basic metabolic panel (08/17/2024 5:29 AM EDT) Sodium 140 136 - 145 mmol/L 08/17/2024 6:19 AM EDT [facility] ([facility]) Potassium 3.6 3.5 - 5.1 mmol/L 08/17/2024 6:19 AM EDT [facility] ([facility]) Chloride 112(H) 98 - 107 mmol/L 08/17/2024 6:19 AM EDT [facility] ([facility]) CO2 22 21 - 31 mmol/L 08/17/2024 6:19 AM EDT [facility] ([facility]) BUN 6(L) 7 - 25 mg/dL 08/17/2024 6:19 AM EDT [facility] ([facility]) Creatinine 0.47(L) 0.60 - 1.20 mg/dL 08/17/2024 6:19 AM EDT [facility] ([facility]) Glucose 80 70 - 100 mg/dL 08/17/2024 6:19 AM EDT [facility] ([facility]) Calcium 7.4(L) 8.6 - 10.3 mg/dL 08/17/2024 6:19 AM EDT [facility] ([facility]) Anion Gap 10 7 - 20 mmol/L 08/17/2024 6:19 AM EDT [facility] ([facility]) eGFR 127.2 >60.0 mL/min/1. 73m*2 08/17/2024 6:19 AM EDT [facility] ([facility]) Comment:The [facility] s estimated glomerular filtration rate (eGFR) will no longer include consideration of race in its calculation. The [employer] s eGFR Task Force developed new recommendations for the estimation of the glomerular filtration rate in the [place] They recommend immediate implementation of the new equation refit without the race variable in all laboratories because the calculation does not include race. In addition to not including race in the calculation and reporting, it included diversity in its development, and has acceptable performance characteristics and potential consequences that do not disproportionately affect any one group of individuals. BUN/Creatinine Ratio 12.8 07/0 04/2024 6:19 AM EDT [facility] ([facility]) Blood Venous blood specimen / Unknown Existing Catheter / Unknown 08/17/2024 5:29 AM EDT 08/17/2024 5:50 AM EDT Jace Corley PA-C LAB BLOOD ORDERABLES Final Res ult Performing Organization Address City/[facility]/ZIP Co de Phone Number [facility]) [address], [place] [id number] * POCT glucose meter (08/16/2024 10:35 PM EDT) Glucose POC 93 70 - 105 mg/dL 08/16/2024 10:46 PM EDT [facility] ([facility]) Comment:[email or web address] Blood Capillary blood specimen / Unknown 08/16/2024 10:35 PM EDT 08/16/2024 10:46 PM EDT Narrative [facility] ([facility]) - 08/16/2024 10:46 PM EDT Waived Testing in the ED is performed under the ED CLIA certificate #[id number]. Sandeep Casey MD LAB BLOOD ORDERABLES Final Resul t Performing Organization Address City/[facility]/ZIP Co de Phone Number [facility]) [address] [place] [address] * (ABNORMAL) CBC auto differential (08/16/2024 9:37 PM EDT) Auto WBC 4.37 4.00 - 10.60 10*3/uL 08/16/2024 10:08 PM EDT [facility] ([facility]) RBC 2.95(L) 3.80 - 5.00 10*6/uL 08/16/2024 10:08 PM [facility] ([facility]) Hemoglobin 9.0(L) 12.0 - 15.0 g/dL 08/16/2024 10:08 PM [facility] ([facility]) Hematocrit 27.8(L) 36.0 - 45.0 % 08/16/2024 10:08 PM [facility] ([facility]) MCV 94.2 82.0 - 98.0 fL 08/16/2024 10:08 PM [facility] ([facility]) MCH 30.5 27.0 - 33.0 pg 08/16/2024 10:08 PM [facility] ([facility]) MCHC 32.4 32.0 - 35.0 g/dL 08/16/2024 10:08 PM [facility] ([facility]) RDW 14.2 11.5 - 15.0 % 08/16/2024 10:08 PM [facility] ([facility]) Neutrophils % 61.1 40.0 - 72.0 % 08/16/2024 10:08 PM [facility] ([facility]) Lymphocytes % 28.8 20.0 - 45.0 % 08/16/2024 10:08 PM [facility] ([facility]) Monocytes % 8.0 5.0 - 12.0 % 08/16/2024 10:08 PM [facility] ([facility]) Eosinophils % 1.4 0.0 - 6.0 % 08/16/2024 10:08 PM [facility] ([facility]) Basophils % 0.2 0.0 - 1.0 % 08/16/2024 10:08 PM [facility] ([facility]) Neutrophils Absolute 2.67 1.60 - 7.60 10*3/uL 08/16/2024 10:08 PM [facility] ([facility]) Lymphocytes Absolute 1.26 1.20 - 4.00 10*3/uL 08/16/2024 10:08 PM [facility] ([facility]) Monocytes Absolute 0.35 0.10 - 1.00 10*3/uL 08/16/2024 10:08 PM EDT [facility] ([facility]) Eosinophils Absolute 0.06 0.00 - 0.50 10*3/uL 08/16/2024 10:08 PM EDT [facility] ([facility]) Basophils Absolute 0.01 0.00 - 0.20 10*3/uL 08/16/2024 10:08 PM EDT [facility] ([facility]) Platelets 227 150 - 400 10*3/uL 08/16/2024 10:08 PM EDT [facility] ([facility]) nRBC % 0.0 0 % 08/16/2024 10:08 PM EDT [facility] ([facility]) Immature Granulocytes % 0.5 0.0 - 1.0 % 08/16/2024 10:08 PM EDT [facility] ([facility]) Immature Granulocytes Absolute 0.02 0.00 - 0.20 10*3/uL 08/16/2024 10:08 PM EDT [facility] ([facility]) Blood Venous blood specimen / Unknown Existing Catheter / Unknown 08/16/2024 9:37 PM EDT 08/16/2024 10:00 PM EDT Jace Corley PA-C LAB BLOOD ORDERABLES Final Res ult [facility]) [address] [place] [id number] * (ABNORMAL) Lactic acid, plasma (08/16/2024 9:37 PM EDT) Lactate 0.4(L) 0.5 - 2.2 mmol/L 08/16/2024 10:28 PM EDT [facility] ([facility]) Blood Venous blood specimen / Unknown Existing Catheter / Unknown 08/16/2024 9:37 PM EDT 08/16/2024 9:59 PM EDT Jace Jory PA-C LAB BLOOD ORDERABLES Final Res ult [facility]) [address] [place] [id number] * Blood culture, peripheral #2 (08/16/2024 9:37 PM EDT) Blood Culture No growth at 5 days SANDHYA 08/21/2024 10:01 PM EDT [facility] ([facility]) Blood Venous blood specimen / Unknown Venipuncture / Unknown 08/16/2024 9:37 PM EDT 08/16/2024 9:59 PM EDT Jace Corley PA-C LAB MICROBIOLOGY - GENERAL ORD ERABLES Final Result [facility]) [address] [place] [id number] * Blood culture, peripheral #1 (08/16/2024 9:37 PM EDT) Blood Culture No growth at 5 days SANDHYA 08/21/2024 10:01 PM EDT [facility] ([facility]) Blood Venous blood specimen / Unknown Venipuncture / Unknown 08/16/2024 9:37 PM EDT 08/16/2024 9:59 PM EDT Jace Corley PA-C LAB MICROBIOLOGY - GENERAL ORD ERABLES Final Result [facility]) [address] [place] [id number] * (ABNORMAL) Magnesium (08/16/2024 9:37 PM EDT) Magnesium 1.8(L) 1.9 - 2.7 mg/dL 08/16/2024 10:24 PM EDT [facility] ([facility]) Blood Venous blood specimen / Unknown Existing Catheter / Unknown 08/16/2024 9:37 PM EDT 08/16/2024 10:00 PM EDT Jace Jory PA-C LAB BLOOD ORDERABLES Final Res ult [facility] ([facility]) [address] [place] [address] * (ABNORMAL) Hepatic function panel (08/16/2024 9:37 PM EDT) Total Bilirubin 0.4 0.3 - 1.0 mg/dL 08/16/2024 10:24 PM EDT [facility] ([facility]) Bilirubin, Direct 0.1 0 - 0.2 mg/dL 08/16/2024 10:24 PM EDT [facility] ([facility]) Alkaline Phosphatase 73 34 - 104 U/L 08/16/2024 10:24 PM EDT [facility]) AST 21 13 - 39 U/L 08/16/2024 10:24 PM EDT [facility]) ALT (SGPT) 10 7 - 52 U/L 08/16/2024 10:24 PM EDT [facility]) Total Protein 5.4(L) 6.0 - 8.3 g/dL 08/16/2024 10:24 PM EDT [facility]) Albumin 2.9(L) 3.5 - 5.7 g/dL 08/16/2024 10:24 PM EDT [facility] ([facility]) Blood Venous blood specimen / Unknown Existing Catheter / Unknown 08/16/2024 9:37 PM EDT 08/16/2024 10:00 PM EDT Jace Corley PA-C LAB BLOOD ORDERABLES Final Res ult [facility]) [address] [place] [id number] * (ABNORMAL) Basic metabolic panel (08/16/2024 9:37 PM EDT) Sodium 139 136 - 145 mmol/L 08/16/2024 10:24 PM EDT [facility]) Potassium 3.6 3.5 - 5.1 mmol/L 08/16/2024 10:24 PM EDT [facility] ([facility]) Chloride 112(H) 98 - 107 mmol/L 08/16/2024 10:24 PM EDT [facility] ([facility]) CO2 21 21 - 31 mmol/L 08/16/2024 10:24 PM EDT [facility] ([facility]) BUN 6(L) 7 - 25 mg/dL 08/16/2024 10:24 PM EDT [facility] ([facility]) Creatinine 0.49(L) 0.60 - 1.20 mg/dL 08/16/2024 10:24 PM EDT [facility] ([facility]) Glucose 89 70 - 100 mg/dL 08/16/2024 10:24 PM T [facility] ([facility]) Calcium 7.5(L) 8.6 - 10.3 mg/dL 08/16/2024 10:24 PM T [facility] ([facility]) Anion Gap 10 7 - 20 mmol/L 08/16/2024 10:24 PM T [facility] ([facility]) eGFR 126.0 >60.0 mL/min/1. 73m*2 08/16/2024 10:24 PM T [facility] ([facility]) Comment:The [facility] s estimated glomerular filtration rate (eGFR) will no longer include consideration of race in its calculation. The [employer] s eGFR Task Force developed new recommendations for the estimation of the glomerular filtration rate in the [place] They recommend immediate implementation of the new equation refit without the race variable in all laboratories because the calculation does not include race. In addition to not including race in the calculation and reporting, it included diversity in its development, and has acceptable performance characteristics and potential consequences that do not disproportionately affect any one group of individuals. BUN/Creatinine Ratio 12.2 07/0 03/2024 10:24 PM T [facility] ([facility]) Blood Venous blood specimen / Unknown Existing Catheter / Unknown 08/16/2024 9:37 PM EDT 08/16/2024 10:00 PM EDT Jace Corley PA-C LAB BLOOD ORDERABLES Final Res ult [facility] ([facility]) [address] [place] [address] documented in this encounter Visit Diagnoses Diagnosis Bacteremia- Primary Bacteremia Hypothyroidism Unspecified hypothyroidism Morbid obesity (CMS/HCC) Morbid obesity GERD (gastroesophageal reflux disease) Esophageal reflux Sepsis due to Klebsiella (CMS/HCC) Sepsis due to Enterococcus (CMS/HCC) Gastroparesis Chronic pain syndrome MALT (mucosa associated lymphoid tissue) Marginal zone lymphoma, unspecified site, extranodal and solid organ sites History of adrenal insufficiency Acquired hypothyroidism Unspecified hypothyroidism documented in this encounter Admitting Diagnoses Diagnosis Bacteremia documented in this encounter Administered Medications Inactive Administered Medications - up to 3 most recent administrations Medication Order MAR Action Action Date Dose Rate Site acetaminophen (Tylenol) tablet 650 mg 650 mg, oral, Every 6 hours PRN, mild pain (1-3 pain score), (1-3), Starting on Wed08/16/24 at 2109, For 99 days Given 08/20/2024 6:33 AM EDT 650 mg Given 08/17/2024 3:00 PM EDT 650 mg albuterol 90 mcg/actuation inhaler 2 puff 2 puff, inhalation, Every 6 hours PRN, wheezing, shortness of breath, Starting on Wed08/17/24 at 1720, For 99 days busPIRone (Buspar) tablet 10 mg 10 mg, oral, 3 times daily, First dose on Wed08/17/24 at 1000, For 99 days Given 08/20/2024 10:07 AM EDT 10 mg Given 08/19/2024 9:11 PM EDT 10 mg Given 08/19/2024 4:55 PM EDT 10 mg cefepime (Maxipime) 1 g in sodium chloride 0.9 % 50 mL IVPB 1 g, intravenous, Administer over 4 Hours, Every 8 hours, First dose on Wed08/17/24 at 0200, For 3 days, Starting 8 hours after loading dose. Mini-Bag Plus bag, Suspected Indication (Select all that apply): Bacteremia New Bag 08/17/2024 2:22 AM EDT 1 g cefepime (Maxipime) 2 g in sodium chloride 0.9 % 50 mL IVPB 2 g, intravenous, Administer over 4 Hours, Every 8 hours, First dose (after last modification) on Heena 08/17/24 at 1000, For 8 doses, Starting 8 hours after loading dose. Mini-Bag Plus bag, Suspected Indication (Select all that apply): Bacteremia New Bag 08/17/2024 10:48 AM EDT 2 g cefTRIAXone (Rocephin) IVPB 2 g in NS 50 mL (Mini-Bag Plus) 2 g, intravenous, at 100 mL/hr, Administer over 30 Minutes, Every 24 hours, First dose on Heena 08/17/24 at 1630, For 14 days, Mini-Bag Plus bag, Suspected Indication (Select all that apply): Bacteremia New Bag 08/19/2024 4:56 PM EDT 2 g 100 mL/hr New Bag 08/18/2024 5:33 PM EDT 2 g 100 mL/hr New Bag 08/17/2024 4:46 PM EDT 2 g 100 mL/hr dexAMETHasone (Decadron) tablet 3 mg 3 mg, oral, Daily, First dose on Heena 08/17/24 at 1715, For 99 days Given 08/20/2024 10:07 AM EDT 3 mg Given 08/19/2024 11:05 AM EDT 3 mg Given 08/18/2024 10:52 AM EDT 3 mg diphenhydrAMINE (BENADryl) capsule 25 mg 25 mg, oral, 3 times daily PRN, nausea, Starting on Wed08/19/24 at 1059, For 99 days Given 08/19/2024 4:55 PM EDT 25 mg diphenhydrAMINE (BENADryl) injection 25 mg 25 mg, intravenous, Once, On Wed08/18/24 at 1030, For 1 dose Given 08/18/2024 11:11 AM EDT 25 mg diphenhydrAMINE (BENADryl) injection 25 mg 25 mg, intravenous, Every 8 hours PRN, itching, Starting on Wed08/18/24 at 1455, For 99 days Given 08/19/2024 7:33 AM EDT 25 mg Given 08/18/2024 5:33 PM EDT 25 mg escitalopram (Lexapro) tablet 20 mg 20 mg, oral, Daily, First dose on Heena 08/17/24 at 1000, For 99 days Given 08/20/2024 10:07 AM EDT 20 mg Given 08/19/2024 11:06 AM EDT 20 mg Given 08/18/2024 10:53 AM EDT 20 mg fentaNYL (Duragesic) 25 mcg/hr 1 patch 1 patch, transdermal, Administer over 72 Hours, Every 72 hours, First dose on Wed08/19/24 at 1000, For 99 days, Do not cut patch. Rotate site with each application to intact non-irritated upper arm, chest, back, or flank. Press firmly in place with palm of hand for 30 seconds, ensuring contact especially at the edges. Do not expose to heat sources. If patch begins to pull away, may apply first aid tape to edges, or overlay with transparent adhesive film if necessary. When remove patch, fold adhesive side of patch to itself before disposing per policy. Wash hands immediately after handling patch. Medication Applied 08/19/2024 11:06 AM EDT 1 patch Left Arm heparin (porcine) injection 5,000 Units 5,000 Units, subcutaneous, Every 12 hours scheduled, First dose on Wed08/16/24 at 2200, For 99 days, Indications: deep vein thrombosis preventionIndications: deep vein thrombosis prevention Given 08/20/2024 10:07 AM EDT 5,000 Units Right Lower Abdomen Given 08/19/2024 9:10 PM EDT 5,000 Units R ight Upper Arm (Back) Given 08/19/2024 11:08 AM EDT 5,000 Units Right Upper Abdomen HYDROcodone-acetaminophen ([place]) 5-325 mg per tablet 1 tablet 1 tablet, oral, Every 6 hours PRN, moderate-severe pain (4-10 pain score), pain, Starting on Wed08/17/24 at 0232, For 99 days Given 08/20/2024 10:07 AM EDT 1 tablet Given 08/20/2024 3:38 AM EDT 1 tablet Given 08/19/2024 9:12 PM EDT 1 tablet hydrOXYzine pamoate (Vistaril) capsule 25 mg 25 mg, oral, 2 times daily PRN, itching, Starting on Wed08/17/24 at 1705, For 99 days Given 08/19/2024 9:12 PM EDT 25 mg Given 08/18/2024 9:46 PM EDT 25 mg Given 08/17/2024 10:02 PM EDT 25 mg insulin lispro (HumaLOG) injection 0-4 Units 0-4 Units, subcutaneous, Nightly, First dose on Wed08/16/24 at 2200, For 99 days, BG less than 110 instructions: Hold Insulin. If BG below 70, implement hypoglycemia orders., BG 110-150: 0, BG 151-200: 0, BG 201-250: 1, BG 251-300: 2, BG 301-350: 3, BG 351-400: 4, BG greater than 400 instructions: Call Physician insulin lispro (HumaLOG) injection 0-5 Units 0-5 Units, subcutaneous, 3 times daily with meals, First dose on Wed08/17/24 at 0800, For 99 days, BG less than 110 instructions: Hold Insulin. If BG below 70, implement hypoglycemia orders., BG 110-150: 0, BG 151-200: 1, BG 201-250: 2, BG 251-300: 3, BG 301-350: 4, BG 351-400: 5, BG greater than 400 instructions: Call Physician Given 08/18/2024 6:18 PM EDT 3 Units Left Lower Abdomen iohexol (OMNIPaque) 350 mg iodine/mL injection 100 mL 100 mL, intravenous, Once in imaging, Starting on Wed08/19/24 at 1634, For 1 day Given 08/19/2024 4:34 PM EDT 100 mL lactated Ringer's infusion 100 mL/hr, intravenous, Continuous, Starting on 08/19/24 at 1115, For 1 day, Indication: dehydration New Bag 08/20/2024 5:10 AM EDT 100 mL/hr 100 mL/hr New Bag 08/19/2024 7:50 PM EDT 100 mL/hr 100 mL/hr New Bag 08/19/2024 11:23 AM EDT 100 mL/hr 100 mL/hr lactated Ringer's infusion 100 mL/hr, intravenous, Continuous, Starting on Wed08/20/24 at 1145, For 1 day, Indication: dehydration New Bag 08/20/2024 12:16 PM EDT 100 mL/hr 100 mL /hr levothyroxine (Synthroid, Levoxyl) tablet 75 mcg 75 mcg, oral, Daily before breakfast, First dose on Wed08/17/24 at 0730, For 99 days Given 08/20/2024 5:11 AM EDT 75 mcg Given 08/19/2024 5:25 AM EDT 75 mcg Given 08/18/2024 5:34 AM EDT 75 mcg linaCLOtide (Linzess) capsule 290 mcg 290 mcg, oral, Daily before breakfast, First dose on Wed08/18/24 at 0730, Do not break or crush capsule. If difficulty swallowing, may sprinkle capsule contents in 30 mL water or 5 mL applesauce if swallowed without chewing. Use immediately after mixing. Given 08/20/2024 5:07 AM EDT 290 m cg Given 08/19/2024 5:25 AM EDT 290 mcg Given 08/18/2024 5:34 AM EDT 290 mcg liothyronine (Cytomel) tablet 5 mcg 5 mcg, oral, Daily, First dose on Wed08/17/24 at 1715, For 99 days Given 08/20/2024 10:06 AM EDT 5 mcg Given 08/19/2024 11:06 AM EDT 5 mcg Given 08/18/2024 10:52 AM EDT 5 mcg melatonin tablet 5 mg 5 mg, oral, Nightly PRN, sleep, Starting on Wed08/16/24 at 2109, For 99 days Given 08/19/2024 9:12 PM EDT 5 mg Given 08/18/2024 9:46 PM EDT 5 mg Given 08/17/2024 10:02 PM EDT 5 mg methocarbamol (Robaxin) tablet 750 mg 750 mg, oral, 4 times daily, First dose on Wed08/17/24 at 1800, For 99 days Given 08/20/2024 2:05 PM EDT 750 mg Given 08/20/2024 10:07 AM EDT 750 mg Given 08/19/2024 9:11 PM EDT 750 mg metoclopramide (Reglan) tablet 10 mg 10 mg, oral, Daily PRN, nausea and vomiting, Starting on Wed08/17/24 at 1705, For 99 days Given 08/19/2024 7:32 AM EDT 10 mg Given 08/18/2024 3:30 PM EDT 10 mg Given 08/18/2024 8:06 AM EDT 10 mg metoclopramide (Reglan) tablet 10 mg 10 mg, oral, 3 times daily PRN, nausea, vomiting, if not relieved by zofran, Starting on 08/19/24 at 1058, 3 times daily as needed before meals for nausea Given 08/19/2024 2:11 PM EDT 10 mg mirtazapine (Remeron) tablet 45 mg 45 mg, oral, Nightly, First dose on Heena 08/17/24 at 2200, For 99 days Given 08/19/2024 9:10 PM EDT 45 mg Given 08/18/2024 9:45 PM EDT 45 mg Given 08/17/2024 10:02 PM EDT 45 mg morphine injection 2 mg 2 mg, intravenous, Once, On Wed08/16/24 at 2215, For 1 dose Given 08/16/2024 10:36 PM EDT 2 mg morphine injection 2 mg 2 mg, intravenous, Once, On 08/19/24 at 1815, For 1 dose Given 08/19/2024 6:23 PM EDT 2 mg morphine injection 2 mg 2 mg, intravenous, Once, On Wed08/20/24 at 1200, For 1 dose Given 08/20/2024 12:16 PM EDT 2 mg ondansetron HCl (PF) (Zofran) injection 4 mg 4 mg, intravenous, Every 6 hours PRN, nausea, vomiting, Starting on Wed08/16/24 at 2109, For 99 days, Give IV if patient is unable to take orally. Administer as an IV push over 2 to 5 minutes. Given 08/19/2024 3:48 AM EDT 4 mg Given 08/18/2024 9:45 PM EDT 4 mg Given 08/18/2024 3:30 PM EDT 4 mg ondansetron ODT (Zofran-ODT) disintegrating tablet 4 mg 4 mg, oral, Every 8 hours PRN, nausea, vomiting, Starting on Wed08/16/24 at 2109, For 99 days Given 08/20/2024 10:07 AM EDT 4 mg Given 08/19/2024 2:12 PM EDT 4 mg Given 08/18/2024 8:14 AM EDT 4 mg pantoprazole (ProtoNix) EC tablet 40 mg 40 mg, oral, Daily at 7am, First dose on Wed08/17/24 at 0245, Do not crush, chew, or split., Indication: Stress Ulcer Prophylaxis Given 08/20/2024 5:06 AM EDT 40 mg Given 08/19/2024 5:25 AM EDT 40 mg Given 08/18/2024 5:34 AM EDT 40 mg polyethylene glycol (Glycolax) packet 17 g 17 g, oral, Daily, First dose on Wed08/19/24 at 1000, For 99 days Given 08/20/2024 10:06 AM EDT 17 g Given 08/19/2024 11:06 AM EDT 17 g prochlorperazine (Compazine) injection 10 mg 10 mg, intravenous, Every 6 hours PRN, nausea, vomiting, Starting on Wed08/18/24 at 1019, For 99 days, For IVP: give each 5mg or less over 1 minute. Given 08/19/2024 7:33 AM EDT 10 mg Given 08/18/2024 5:33 PM EDT 10 mg Given 08/18/2024 10:52 AM EDT 10 mg prochlorperazine (Compazine) tablet 10 mg 10 mg, oral, 3 times daily PRN, nausea, vomiting, if zofran or reglan did not help, Starting on Wed08/19/24 at 1100, For 99 days Given 08/19/2024 4:56 PM EDT 10 mg sennosides-docusate sodium (Ant-Colace) 8.6-50 mg per tablet 2 tablet 2 tablet, oral, 2 times daily, First dose on Wed08/19/24 at 2200, For 99 days Given 08/20/2024 10:07 AM EDT 2 tablet s Given 08/19/2024 9:15 PM EDT 2 tablets topiramate (Topamax) tablet 100 mg 100 mg, oral, 2 times daily, First dose on Wed08/17/24 at 2200, For 99 days, Crushing/splitting of tablets is not recommended due to bitter taste. Given 08/20/2024 10:07 AM EDT 100 mg Given 08/19/2024 9:10 PM EDT 100 mg Given 08/19/2024 11:06 AM EDT 100 mg traMADol (Ultram) tablet 50 mg 50 mg, oral, Every 6 hours, First dose on Wed08/17/24 at 1800, For 99 days Given 08/20/2024 12:16 PM EDT 50 mg Given 08/20/2024 5:06 AM EDT 50 mg Given 08/19/2024 11:13 PM EDT 50 mg traZODone (Desyrel) tablet 100 mg 100 mg, oral, Nightly, First dose on Heena 08/17/24 at 0245, For 99 days Given 08/19/2024 9:11 PM EDT 100 mg Given 08/18/2024 9:45 PM EDT 100 mg Given 08/17/2024 10:02 PM EDT 100 mg vancomycin 1.25 gram/250 mL piggyback 1.25 g 1.25 g, intravenous, at 200 mL/hr, Administer over 75 Minutes, Every 8 hours, First dose on Heena 08/17/24 at 0200, First dose STAT, if not already given., Suspected Indication (Select all that apply): Bacteremia New Bag 08/17/2024 9:49 AM EDT 1.25 g 200 mL/hr New Bag 08/17/2024 2:21 AM EDT 1.25 g 200 mL/hr documented in this encounter Active and Recently Administered Medications Times are shown in EDT. Scheduled Medication Order 08/18/2024 08/19/2024 08/20/2024 busPIRone (Buspar) tablet 10 mg 10 mg, oral, 3 times daily, First dose on Heena 08/17/24 at 1000, For 99 days 1053 (Given - Provider: Haseeb Colunga RN)1733 (Given - Provider: Haseeb Colunga RN)2146 (Given - Provider: Denisse Jaeger RN) 1106 (Given - Provider: Haseeb Colunga RN)1655 (Given - Provider: Haseeb Colunga, DEE)2111 (Given - Provider: Jose Abdullahi, RN) 1007 (Given - Provider: Anna Peres RN)1600 (Canceled Entry - Provider: Automatic Discharge Provider - Comment: Automatically canceled at discontinue of medication order) cefTRIAXone (Rocephin) IVPB 2 g in NS 50 mL (Mini-Bag Plus) 2 g, intravenous, at 100 mL/hr, Administer over 30 Minutes, Every 24 hours, First dose on Heena 08/17/24 at 1630, For 14 days, Mini-Bag Plus bag, Suspected Indication (Select all that apply): Bacteremia 1733 (New Bag - Provider: Haseeb Colunga RN)1803 (Stopped - Provider: Haseeb Colunga RN) 1656 (New Bag - Provider: Haseeb Colunga RN)1726 (Stopped - Provider: Haseeb Colunga RN) 1630 (Canceled Entry - Provider: Automatic Discharge Provider - Comment: Automatically canceled at discontinue of medication order) dexAMETHasone (Decadron) tablet 3 mg 3 mg, oral, Daily, First dose on Wed08/17/24 at 1715, For 99 days 1052 (Given - Provider: Haseeb Colunga RN) 1105 (Given - Provider: Haseeb Colunga RN) 1007 (Given - Provider: Anna Peres, DEE) diphenhydrAMINE (BENADryl) injection 25 mg (COMPLETED) 25 mg, intravenous, Once, On Wed08/18/24 at 1030, For 1 dose 1111 (Given - Provider: Haseeb Colunga RN) escitalopram (Lexapro) tablet 20 mg 20 mg, oral, Daily, First dose on Wed08/17/24 at 1000, For 99 days 1053 (Given - Provider: Haseeb Colunga RN) 1106 (Given - Provider: Haseeb Colunga RN) 1007 (Given - Provider: Anna Peres, DEE) fentaNYL (Duragesic) 25 mcg/hr 1 patch 1 patch, transdermal, Administer over 72 Hours, Every 72 hours, First dose on Wed08/19/24 at 1000, For 99 days, Do not cut patch. Rotate site with each application to intact non-irritated upper arm, chest, back, or flank. Press firmly in place with palm of hand for 30 seconds, ensuring contact especially at the edges. Do not expose to heat sources. If patch begins to pull away, may apply first aid tape to edges, or overlay with transparent adhesive film if necessary. When remove patch, fold adhesive side of patch to itself before disposing per policy. Wash hands immediately after handling patch. 1106 (Medication Applied - Provider: Haseeb Colunga RN) 1555 (Due: Medication Removed - Provider: Automatic Discharge Provider - Comment: Time automatically adjusted from order being discontinued) heparin (porcine) injection 5,000 Units 5,000 Units, subcutaneous, Every 12 hours scheduled, First dose on Wed08/16/24 at 2200, For 99 days, Indications: deep vein thrombosis prevention 1052 (Given - Provider: Haseeb Colunga RN)2145 (Given - Provider: Denisse Jaeger RN) 1108 (Given - Provider: Haseeb Colunga RN)2110 (Given - Provider: Jose Abdullahi RN) 1007 (Given - Provider: Anna Peres RN) insulin lispro (HumaLOG) injection 0-4 Units(Linked Group 1) 0-4 Units, subcutaneous, Nightly, First dose on Wed08/16/24 at 2200, For 99 days, BG less than 110 instructions: Hold Insulin. If BG below 70, implement hypoglycemia orders., BG 110-150: 0, BG 151-200: 0, BG 201-250: 1, BG 251-300: 2, BG 301-350: 3, BG 351-400: 4, BG greater than 400 instructions: Call Physician 2199 (Not Given - Provider: Denisse Jaeger RN - Reason: Order parameters not met) 2199 (Not Given - Provider: Jose Abdullahi RN - Reason: Order parameters not met) insulin lispro (HumaLOG) injection 0-5 Units(Linked Group 1) 0-5 Units, subcutaneous, 3 times daily with meals, First dose on Wed08/17/24 at 0800, For 99 days, BG less than 110 instructions: Hold Insulin. If BG below 70, implement hypoglycemia orders., BG 110-150: 0, BG 151-200: 1, BG 201-250: 2, BG 251-300: 3, BG 301-350: 4, BG 351-400: 5, BG greater than 400 instructions: Call Physician 0800 (Not Given - Provider: Haseeb Colunga RN - Reason: Order parameters not met)1200 (Not Given - Provider: Haseeb Colunga RN - Reason: Order parameters not met)1818 (Given - Provider: Haseeb Colunga RN) 0800 (Not Given - Provider: Haseeb Colunga RN - Reason: Order parameters not met)1200 (Not Given - Provider: Haseeb Colunga RN - Reason: Order parameters not met)1700 (Not Given - Provider: Haseeb Colunga RN - Reason: Order parameters not met) 0800 (Not Given - Provider: Anna Peres RN - Reason: Order parameters not met)1200 (Not Given - Provider: Anna Peres RN - Reason: Order parameters not met)1700 (Canceled Entry - Provider: Automatic Discharge Provider - Comment: Automatically canceled at discontinue of medication order) iohexol (OMNIPaque) 350 mg iodine/mL injection 100 mL 100 mL, intravenous, Once in imaging, Starting on 08/19/24 at 1634, For 1 day 1634 (Given - Provider: STEFAN Terrazas) levothyroxine (Synthroid, Levoxyl) tablet 75 mcg 75 mcg, oral, Daily before breakfast, First dose on Heena 08/17/24 at 0730, For 99 days 0534 (Given - Provider: Denisse Jaeger RN) 0525 (Given - Provider: Denisse Jaeger RN) 0511 (Given - Provider: Jose Abdullahi, DEE) linaCLOtide (Linzess) capsule 290 mcg 290 mcg, oral, Daily before breakfast, First dose on Wed08/18/24 at 0730, Do not break or crush capsule. If difficulty swallowing, may sprinkle capsule contents in 30 mL water or 5 mL applesauce if swallowed without chewing. Use immediately after mixing. 0534 (Given - Provider: Denisse Jaeger RN) 0525 (Given - Provider: Denisse Jaeger RN) 0507 (Given - Provider: Jose Abdullahi, DEE) liothyronine (Cytomel) tablet 5 mcg 5 mcg, oral, Daily, First dose on Heena 08/17/24 at 1715, For 99 days 1052 (Given - Provider: Haseeb Colunga RN) 1106 (Given - Provider: Haseeb Colunga RN) 1006 (Given - Provider: Anna Peres RN) methocarbamol (Robaxin) tablet 750 mg 750 mg, oral, 4 times daily, First dose on Heena 08/17/24 at 1800, For 99 days 1052 (Given - Provider: Haseeb Colunga RN)1406 (Given - Provider: Haseeb Colunga RN)1732 (Given - Provider: Haseeb Colunga RN)2146 (Given - Provider: Denisse Jaeger RN) 1105 (Given - Provider: Haseeb Colunga RN)1411 (Given - Provider: Haseeb Colunga RN)1717 (Given - Provider: Haseeb Colunga RN)2110 (Given - Provider: Jose Abdullahi RN) 1007 (Given - Provider: Anna Peres RN)1405 (Given - Provider: Anna Peres RN) mirtazapine (Remeron) tablet 45 mg 45 mg, oral, Nightly, First dose on Heena 08/17/24 at 2200, For 99 days 2144 (Given - Provider: Denisse Jaeger RN) 2109 (Given - Provider: Jose Abdullahi RN) morphine injection 2 mg (COMPLETED) 2 mg, intravenous, Once, On 08/19/24 at 1815, For 1 dose 1823 (Given - Provider: Haseeb Colunga RN) morphine injection 2 mg (COMPLETED) 2 mg, intravenous, Once, On 08/20/24 at 1200, For 1 dose 1216 (Given - Provid er: Anna Peres RN) pantoprazole (ProtoNix) EC tablet 40 mg 40 mg, oral, Daily at 7am, First dose on Heena 08/17/24 at 0245, Do not crush, chew, or split., Indication: Stress Ulcer Prophylaxis 0534 (Given - Provider: Denisse Jaeger RN) 0525 (Given - Provider: Denisse Jaeger RN)0700 (Canceled Entry - Provider: Denisse Jaeger RN) 0506 (Given - Provider: Jose Abdullahi RN) polyethylene glycol (Glycolax) packet 17 g 17 g, oral, Daily, First dose on 08/19/24 at 1000, For 99 days 1106 (Given - Provider: Haseeb Colunga RN) 1006 (Given - Provider: Anna Peres RN) sennosides-docusate sodium (Ant-Colace) 8.6-50 mg per tablet 2 tablet 2 tablet, oral, 2 times daily, First dose on 08/19/24 at 2200, For 99 days 2114 (Given - Provider: Jose Abdullahi RN) 1007 (Given - Provider: Anna Peres RN) topiramate (Topamax) tablet 100 mg 100 mg, oral, 2 times daily, First dose on Heena 08/17/24 at 2200, For 99 days, Crushing/splitting of tablets is not recommended due to bitter taste. 1053 (Given - Provider: Haseeb Colunga RN)2146 (Given - Provider: Denisse Jaeger RN) 1106 (Given - Provider: Haseeb Colunga RN)2110 (Given - Provider: Jose Abdullahi RN) 1007 (Given - Provider: Anna Peres RN) traMADol (Ultram) tablet 50 mg 50 mg, oral, Every 6 hours, First dose on Heena 08/17/24 at 1800, For 99 days 0011 (Given - Provider: Denisse Jaeger RN)0534 (Given - Provider: Denisse Jaeger RN)1200 (Given - Provider: Haseeb Colunga RN)1732 (Given - Provider: Haseeb Colunga RN) 0014 (Given - Provider: Denisse Jaeger RN)0524 (Given - Provider: Denisse Jaeger RN)1105 (Given - Provider: Haseeb Colunga RN)1708 (Given - Provider: Haseeb Colunga RN)2313 (Given - Provider: Jose Abdullahi RN) 0506 (Given - Provider: Jose Abdullahi RN)1216 (Given - Provider: Anna Peres RN) traZODone (Desyrel) tablet 100 mg 100 mg, oral, Nightly, First dose on Heena 08/17/24 at 0245, For 99 days 2144 (Given - Provider: Denisse Jaeger RN) 2110 (Given - Provider: Jose Abdullahi RN) Continuous Medication Order 08/18/2024 08/19/2024 08/20/2024 lactated Ringer's infusion 100 mL/hr, intravenous, Continuous, Starting on 08/19/24 at 1115, For 1 day, Indication: dehydration 1123 (New Bag - Provider: Haseeb Colunga RN)1950 (New Bag - Provider: Denisse Jaeger RN) 0510 (New Bag - Provider: Jose Abdullahi RN)1215 (Stopped - Provider: Anna Peres RN) lactated Ringer's infusion 100 mL/hr, intravenous, Continuous, Starting on 08/20/24 at 1145, For 1 day, Indication: dehydration 1216 (New Bag - Provider: Anna Peres RN)1431 (Stopped - Provider: Anna Peres RN - Comment: Patient discharging) PRN Medication Order 08/18/2024 08/19/2024 08/20/2024 acetaminophen (Tylenol) tablet 650 mg 650 mg, oral, Every 6 hours PRN, mild pain (1-3 pain score), (1-3), Starting on Wed08/16/24 at 2109, For 99 days 0633 (Given - Provider: Denisse Jaeger RN) albuterol 90 mcg/actuation inhaler 2 puff 2 puff, inhalation, Every 6 hours PRN, wheezing, shortness of breath, Starting on Heena 08/17/24 at 1720, For 99 days diphenhydrAMINE (BENADryl) capsule 25 mg 25 mg, oral, 3 times daily PRN, nausea, Starting on Wed08/19/24 at 1059, For 99 days 1655 (Given - Provider: Haseeb Colunga RN) diphenhydrAMINE (BENADryl) injection 25 mg (CANCELED) 25 mg, intravenous, Every 8 hours PRN, itching, Starting on Wed08/18/24 at 1455, For 99 days 1733 (Given - Provider: Haseeb Colunga RN) 0733 (Given - Provider: Haseeb Colunga RN) HYDROcodone-acetaminophe n ([place]) 5-325 mg per tablet 1 tablet 1 tablet, oral, Every 6 hours PRN, moderate-severe pain (4-10 pain score), pain, Starting on Wed08/17/24 at 0232, For 99 days 0806 (Given - Provider: Haseeb Colunga RN)1419 (Given - Provider: Haseeb Colunga RN)2145 (Given - Provider: Denisse Jaeger RN) 0348 (Given - Provider: Denisse Jaeger RN)1411 (Given - Provider: Haseeb Colunga RN)2112 (Given - Provider: Jose Abdullahi RN) 0338 (Given - Provider: Jose Abdullahi RN)1007 (Given - Provider: Anna Peres RN) hydrOXYzine pamoate (Vistaril) capsule 25 mg 25 mg, oral, 2 times daily PRN, itching, Starting on Heena 08/17/24 at 1705, For 99 days 2145 (Given - Provider: Denisse Jaeger RN) 2111 (Given - Provider: Jose Abdullahi RN) melatonin tablet 5 mg 5 mg, oral, Nightly PRN, sleep, Starting on Wed08/16/24 at 2109, For 99 days 2145 (Given - Provider: Denisse Jaeger RN) 2111 (Given - Provider: Jose Abdullahi RN) metoclopramide (Reglan) tablet 10 mg (CANCELED) 10 mg, oral, Daily PRN, nausea and vomiting, Starting on Heena 08/17/24 at 1705, For 99 days 08 (Given - Provider: Haseeb Colunga RN)1530 (Given - Provider: Haseeb Colunga RN) 0732 (Given - Provider: Haseeb Colunga RN) metoclopramide (Reglan) tablet 10 mg 10 mg, oral, 3 times daily PRN, nausea, vomiting, if not relieved by zofran, Starting on 08/19/24 at 1058, 3 times daily as needed before meals for nausea 1411 (Given - Provider: Haseeb Colunga RN) ondansetron HCl (PF) (Zofran) injection 4 mg(Linked Group 2) 4 mg, intravenous, Every 6 hours PRN, nausea, vomiting, Starting on Wed08/16/24 at 2109, For 99 days, Give IV if patient is unable to take orally. Administer as an IV push over 2 to 5 minutes. 0806 (Given - Provider: Haseeb Colunga RN)0814 (See Alternative - Provider: Haseeb Colunga RN)1530 (Given - Provider: Haseeb Colunga RN)214 (Given - Provider: Denisse Jaeger RN) 0348 (Given - Provider: Denisse Jaeger RN)1412 (See Alternative - Provider: Haseeb Colunga RN) 1007 (See Alternative - Provider: Anna Peres RN) ondansetron ODT (Zofran-ODT) disintegrating tablet 4 mg(Linked Group 2) 4 mg, oral, Every 8 hours PRN, nausea, vomiting, Starting on Wed08/16/24 at 2109, For 99 days 0806 (See Alternative - Provider: Haseeb Colunga RN)0814 (Given - Provider: Haseeb Colunga RN)1530 (See Alternative - Provider: Haseeb Colunga RN)2145 (See Alternative - Provider: Denisse Jaeger, DEE) 0348 (See Alternative - Provider: Denisse Jaeger, DEE)1412 (Given - Provider: Haseeb Colunga RN) 1007 (Given - Provider: Anna Peres RN) prochlorperazine (Compazine) injection 10 mg (CANCELED) 10 mg, intravenous, Every 6 hours PRN, nausea, vomiting, Starting on Wed08/18/24 at 1019, For 99 days, For IVP: give each 5mg or less over 1 minute. 1052 (Given - Provider: Haseeb Colunga RN)1733 (Given - Provider: Haseeb Colunga RN) 0733 (Given - Provider: Haseeb Colunga RN) prochlorperazine (Compazine) tablet 10 mg 10 mg, oral, 3 times daily PRN, nausea, vomiting, if zofran or reglan did not help, Starting on Wed08/19/24 at 1100, For 99 days 1656 (Given - Provider: Haseeb Colunga RN) Linked Groups Order Group 1: insulin lispro (HumaLOG) injection 0-5 UnitsJump to med 0-5 Units, subcutaneous, 3 times daily with meals, First dose on Wed08/17/24 at 0800, For 99 days, BG less than 110 instructions: Hold Insulin. If BG below 70, implement hypoglycemia orders., BG 110-150: 0, BG 151-200: 1, BG 201-250: 2, BG 251-300: 3, BG 301-350: 4, BG 351-400: 5, BG greater than 400 instructions: Call Physician And insulin lispro (HumaLOG) injection 0-4 UnitsJump to med 0-4 Units, subcutaneous, Nightly, First dose on Wed08/16/24 at 2200, For 99 days, BG less than 110 instructions: Hold Insulin. If BG below 70, implement hypoglycemia orders., BG 110-150: 0, BG 151-200: 0, BG 201-250: 1, BG 251-300: 2, BG 301-350: 3, BG 351-400: 4, BG greater than 400 instructions: Call Physician Group 2: ondansetron ODT (Zofran-ODT) disintegrating tablet 4 mgJump to med 4 mg, oral, Every 8 hours PRN, nausea, vomiting, Starting on Wed08/16/24 at 2109, For 99 days Or ondansetron HCl (PF) (Zofran) injection 4 mgJump to med 4 mg, intravenous, Every 6 hours PRN, nausea, vomiting, Starting on Wed08/16/24 at 2109, For 99 days, Give IV if patient is unable to take orally. Administer as an IV push over 2 to 5 minutes. documented in this encounter Care Teams Loan Underwriter Relationship Specialty Start Date End Date Thomas Alas MD [address] [place] [id number] PCP - General Family Medicine 08/17/24 documented as of this encounter
[2024-08-28] VITALS (10 sets, daily range): BP systolic 123–140; BP diastolic 76–91; PULSE 85–133; TEMP 36.5–38.8; O2SAT 95–98; BMI 29.1; BMI 29.4
--- OUTSIDE RECORDS SUMMARY | 2024-08-28 12:42 | XMS_ITS | Encounter Summary ---
Author Organization [facility] Address [address] [place] [address] Care Team Providers Care Certified Pathology Assistant Name Role Phone Thomas Alas MD Primary Care Provider [phone] Encounter Details Date Type Department Care Team (Late st Contact Info) Description 08/20/2024 Orders Only [facility] Vascular and Endovascular Surgery [address] [place] [id number] Mikayla Jennings PA-C [address] [place] [address] Wound cellulitis (Primary Dx) Social History Tobacco Use Types Packs/Day Years Used Date Smoking Tobacco: Never Smokeless Tobacco: Never [facility] Utilities Answer Date Recorded In the past 12 months has e electric, gas, oil, or water company [...] any time in the past 12 m [facility], were you homeless or living in a fci (including now)? No 08/16/2024 Hunger Vital Sign [...] PM EDT documented as of this encounter Plan of Treatment Not on file documented as of this encounter Visit Diagnoses Diagnosis Wound cellulitis- Primary documented in this encounter Care Teams Certified Pathology Assistant Relationship Specialty Start Date End Date Thomas Alas MD [address] [place], [place] [address] [place] [address] PCP - General Family Medicine 08/17/24 documented as of this encounter
--- OUTSIDE RECORDS SUMMARY | 2024-08-28 12:42 | XMS_ITS | Encounter Summary ---
Author Organization [facility] Address [address] [place] [address] Care Team Providers Care Overweaver Name Role Phone Anna Mendez ZONING ASSISTANT Unavailable Unallocated, Noms Provider Primary Care Provi pako Tj Najera Unavailable [phone] Thomas Alas MD Primary Care Provider [phone] Encounter Details Date Type Department Care Team (Late st Contact Info) Description 11/20/2022 Abstract [facility] [address] [place] [address] Tj Najera, PA [address] [place] [address] Social History Tobacco Use Types Packs/Day Years [...] on filedocumented in this encounter Care Teams Overweaver Relationship Specialty Start Date End Date Unallocated, Noms Provider, [address] [place] [address] PCP - General 07/23/22 12/13/23 Tj Najera PA [address] [place] [address] PCP - Medical [facility] 07/16/22 04/24/23 Thomas Alas MD [address] [place] [address] PCP - General Family Medicine 12/14/23 Anna Mendez NP [address] [place] [address] Referring Physician Family Medicine 07/23/22 documented as of this encounter
--- OUTSIDE RECORDS SUMMARY | 2024-08-28 12:42 | XMS_ITS | Encounter Summary ---
Author Organization [facility] Address [address] [place] [address] Care Team Providers Care Sample Washer Name Role Phone Anna Mendez SPANISH LANGUAGE LECTURER Unavailable Unallocated, Noms Provider Primary Care Provi pako Thomas Alas MD Primary Care Provider [phone] Encounter Details Date Type Department Care Team (Late st Contact Info) Description 10/29/2023 Abstract [facility] [address] [place] [address] Vero Medeiros LPN [address] [place] [address] Social History Tobacco Use Types [...] on filedocumented in this encounter Care Teams Sample Washer Relationship Specialty Start Date End Date Unallocated, [place] [address] PCP - General 07/23/22 12/13/23 Thomas Alas MD [address] [facility] [place] [address] PCP - General Family Medicine 12/14/23 Anna Mednez NP [address] [place] [address] Referring Physician Family Medicine 07/23/22 documented as of this encounter
--- OUTSIDE RECORDS SUMMARY | 2024-08-28 12:42 | XMS_ITS | Clinical Summary ---
Author Organization [facility] Address [address] [place] [address] Care Team Providers Care Airport Traffic Controller Name Role Phone Thomas Alas MD Primary Care Provider [phone] Allergies Active Allergy Reactions Criticality Noted Date Comments Adhesive Rash Low 08/16/2024 Codeine Nausea And Vomiting 08/16/2024 Nsaids (Non-Steroidal Anti-Inflammatory Drug) GI intolerance 08/16/2024 Medications liothyronine (Cytomel) 5 mcg tablet Take 5 mcg by mouth in the morning. Active topiramate (Topamax) 100 mg tablet Take 100 mg by mouth two times daily. Active linaCLOtide (Linzess) 290 mcg capsule Take 290 mcg by mouth before breakfast. Do not crush or chew. Active metoclopramide (Reglan) 10 mg tablet Take 10 mg by mouth if needed each day (nausea and vomiting). Active ALBUTEROL INHL Inhale 90 mcg every 6 (six) hours if needed (SOB or wheezing). Active escitalopram (Lexapro) 20 mg tablet Take 20 mg by mouth in the morning. Active levothyroxine (Synthroid, Levoxyl) 75 mcg tablet Take 75 mcg by mouth before breakfast. Active mirtazapine (Remeron) 30 mg tablet Take 45 mg by mouth at bedtime. Active acetaminophen (Tylenol) 325 mg tablet Take 650 mg by mouth every 4 (four) hours if needed for mild pain (1-3 pain score). Active methocarbamol (Robaxin) 500 mg tablet Take 750 mg by mouth four times daily. Active omeprazole (PriLOSEC) [address] capsule Take 40 mg by mouth before breakfast and before evening meal. Do not crush or chew. Active prucalopride 2 mg tablet Take 2 mg by mouth in the morning. Active traZODone (Desyrel) 100 mg tablet Take 100 mg by mouth at bedtime. Active dexAMETHasone (Decadron) 2 mg tablet Take 3 mg by mouth in the morning. Active ergocalciferol (Vitamin D-2) 1.25 MG (35718 Units) capsule Take 50,000 Units by mouth 1 (one) time per week. Active amoxicillin-pot clavulanate (Augmentin) 875-125 mg tabletIndicatio ns:Bacteremia Take 1 tablet by mouth two times daily for 11 days. 22 tablet 08/21/19 25 025 Active hydrOXYzine HCL (Atarax) 25 mg tablet Take 25 mg by mouth if needed in the morning and at bedtime for itching. 025 Discontinued busPIRone (Buspar) 10 mg tablet Take 10 mg by mouth three times daily. 025 Discontinued fentaNYL (Duragesic) 25 mcg/hr Place 1 patch on the skin every 3rd (third) day. 025 Discontinued HYDROcodone-hernandez taminophen (Houston) 5-325 mg tablet Take 1 tablet by mouth every 6 (six) hours if needed for moderate-sharon re pain (4-10 pain score) (pain). 025 Discontinued amoxicillin-pot clavulanate (Augmentin) 875-125 mg tabletIndicatio ns:Bacteremia Take 1 tablet by mouth two times daily for 10 days. 20 tablet 08/21/19 25 025 Discontinued Active Problems Problem Noted Date Diagnosed Date Sepsis due to Klebsiella 08/18/2024 Assessment & Plan (08/19/2024 1:03 PM EDT): - source is likely the cellulitis around the J-tube status post J-tube removal. - CT scan from [facility] showing no abscess. - Infectious disease recommendations appreciated, continue with ceftriaxone. - Repeat blood cultures on 08/16: NGTD - central line in place, does not look like infected, continue monitoring, central line care. Assessment & Plan (08/18/2024 12:20 PM EDT): - source is likely the cellulitis around the J-tube status post J-tube removal. - CT scan from [facility] showing no abscess. - Infectious disease recommendations appreciated, continue with ceftriaxone. - Repeat blood cultures on 08/16: NGTD - central line in place, does not look like infected, continue monitoring, central line care. Sepsis due to Enterococcus 08/18/2024 Assessment & Plan (08/19/2024 1:03 PM EDT): - source is likely the cellulitis around the J-tube status post J-tube removal. - CT scan from [facility] showing no abscess. - Infectious disease recommendations appreciated, continue with ceftriaxone. - Repeat blood cultures on 08/16: NGTD - central line in place, does not look like infected, continue monitoring, central line care. Assessment & Plan (08/18/2024 12:20 PM EDT): - source is likely the cellulitis around the J-tube status post J-tube removal. - CT scan from [facility] showing no abscess. - Infectious disease recommendations appreciated, continue with ceftriaxone. - Repeat blood cultures on 08/16: NGTD - central line in place, does not look like infected, continue monitoring, central line care. Gastroparesis 08/18/2024 Assessment & Plan (08/19/2024 1:03 PM EDT): - status post central line placement for TPN. Clinical dietitian consulted, patient can resume TPN. - status post J-tube placement which the patient regularly use, status post removal of the J-tube on this admission. - As needed antiemetics Assessment & Plan (08/18/2024 12:20 PM EDT): - status post central line placement for TPN. Clinical dietitian consulted, patient can resume TPN. - status post J-tube placement which the patient regularly use, status post removal of the J-tube on this admission. - As needed antiemetics Chronic pain syndrome 08/18/2024 Assessment & Plan (08/19/2024 1:03 PM EDT): - continue with home meds including fentanyl patch and scheduled tramadol. Continue with as needed Houston. Assessment & Plan (08/18/2024 12:20 PM EDT): - continue with home meds including fentanyl patch and scheduled tramadol. Continue with as needed [place]. 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 Assessment & Plan (08/18/2024 12:20 PM EDT): - status postresection. History of adrenal insufficiency 08/18/2024 Assessment & Plan (08/19/2024 1:03 PM EDT): - continue with dexamethasone Assessment & Plan (08/18/2024 12:20 PM EDT): - continue with dexamethasone Acquired hypothyroidism 08/18/2024 Assessment & Plan (08/19/2024 1:03 PM EDT): - continue with levothyroxine. Assessment & Plan (08/18/2024 12:20 PM EDT): - continue with levothyroxine. Hypothyroidism 08/17/2024 Assessment & Plan (08/19/2024 1:03 PM EDT): -Levothyroxine 75 mcg p.o. daily - Monitor TSH and LFTs as well as other thyroid function testing Assessment & Plan (08/18/2024 12:20 PM EDT): -Levothyroxine 75 mcg p.o. daily - Monitor TSH and LFTs as well as other thyroid function testing Assessment & Plan (08/17/2024 1:27 AM EDT): -Levothyroxine 75 mcg p.o. 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 Assessment & Plan (08/17/2024 1:27 AM EDT): -Weight loss by virtue of diet and exercise GERD (gastroesophageal reflux disease) Assessment & Plan (08/19/2024 1:03 PM EDT): -Pantoprazole 40 mg p.o. daily Assessment & Plan (08/18/2024 12:20 PM EDT): -Pantoprazole 40 mg p.o. daily Assessment & Plan (08/17/2024 1:27 AM EDT): -Pantoprazole 40 mg p.o. daily DVT prophylaxis is VTE protocols per [facility] GI prophy Protonix Monitor labs) Obtain blood cultures Comments IV Vanco and cefepime Consult infectious diseases Early ambulation I discussed the plan of care with the patient and she is in agreement. Bacteremia 08/16/2024 Assessment & Plan (08/17/2024 1:27 AM EDT): -Unclear blood cultures - Commence patient on Vanco/cefepime - Monitor patient blood cultures - Also evaluate lab tests and correct abnormalities - Consult infectious disease - Obtain 2D echocardiogram Encounters Date Type Department Care Team Description 08/20/2024 Orders Only [facility] Vascular and Endovascular Surgery [address] [place] [id number] Mikayla Jennings PA-C Wound cellulitis (Primary Dx) 08/20/2024 Orders Only [facility] Vascular and Endovascular Surgery [address] [place] [address] Mikayla Jennings PA-C Wound cellulitis (Primary Dx) 08/16/2024 8:48 PM EDT - 08/20/2024 3:55 PM EDT Hospital Encounter [facility] 5AB[facility] Surgery Stepdown [address] [place] [address] Sandeep Casey MD Mansur, Sarmed, MD Okoro, Bonaventure, MD Bacteremia (Primary Dx) Discharge Disposition: Home or Self Care () 08/16/2024 Travel from Last 3 Months Social History Tobacco Use Types Packs/Day Years Used Date Smoking Tobacco: Never Smokeless Tobacco: Never Tobacco Cessation:Counseling Given: Not Answered [facility] Utilities Answer Date Recorded In the [...] file 08/16/2024 Housing Stability Vital Sign Answer Eguenio e Recorded In the last 12 months, was t here a time when you were not able to pay the mortgage or rent on time? No 08/16/2024 In the past 12 months, how m any times have you moved where you were living? 0 08/16/2024 At any time in the past 12 m [facility], were you homeless or living in a senior care (including now)? No 08/16/2024 Hunger Vital Sign [...] Heterosexual or Straight 04/2024 3:45 PM EDT Last Filed Vital Signs Vital Sign Reading [...] Mass Index 30.78 08/16/2024 9:35 PM EDT Plan of Treatment Health Maintenance Due Date Last Done Comments Depression Screening 2001 Varicella Vaccines (1 of 2 - 13+ 2-dose series) 2002 Hepatitis B Vaccines (1 of 3 - 19+ 3-dose series) 2008 Pneumococcal Vaccine: Pediatrics (0 to 5 Years) and At-Risk Patients (6 to 64 Years) (1 of 2 - PCV) 2008 Zoster Vaccines (1 of 2) 2008 HPV/Cotest 2019 Cervical Cancer Screening 05/22/2023 Pap Smear 05/22/2023 05/21/2020 COVID-19 Vaccine ( season) 2023 02/18/2021, 06/23/2020 Influenza Vaccine (#1) 2024 3, 11/16/2021, 01/01/2021, Additional history exists Adult Tetanus 09/21/2026 09/21/2016 HIB Vaccines Aged Out No longer eligi [...] on patient's age to complete this topic Procedures Procedure Name Priority Date/Time Associated Diagnosis [...] AUTO DIFFERENTIAL STAT 08/16/2024 9:37 PM EDT LACTIC ACID, PLASMA STAT 08/16/2024 9 :37 PM EDT CBC AND DIFFERENTIAL STAT 08/16/2024 9:37 PM EDT MAGNESIUM STAT 08/16/2024 9:37 PM EDT HEPATIC FUNCTION PANEL STAT 08/16/2024 9:37 PM EDT BASIC METABOLIC PANEL STAT 08/16/2024 9:37 PM EDT BLOOD CULTURE STAT 08/16/2024 9:37 PM EDT BLOOD CULTURE STAT 08/16/2024 9:37 PM EDT from Last 3 Months Results * (ABNORMAL) POCT glucose meter (08/20/2024 11:10 AM EDT) Only the most recent of14 resultswithin the time period is included. [facility] Glucose POC 122(H) 70 - 105 mg/dL 08/20/2024 11:30 AM EDT [facility] ([facility]) Comment:[email or web address] Blood Capillary blood specimen / Unknown 08/20/2024 11:10 AM EDT 08/20/2024 11:30 AM EDT Narrative [facility] ([facility]) - 08/20/2024 11:30 AM EDT Waived Testing in the ED is performed under the ED CLIA certificate #[id number]. us Mauricio Garcia MD LAB BLOOD ORDERABLES Final Resu lt [facility] ([facility]) [address] [place], [place] [id number] * (ABNORMAL) CBC (08/20/2024 5:17 AM EDT) Only the most recent of4 resultswithin the time period is included. [facility] Auto WBC 5.02 4.00 - 10.60 10*3/uL 08/20/2024 6:20 AM EDT [facility] ([facility]) RBC 3.02(L) 3.80 - 5.00 10*6/uL 08/20/2024 6:20 AM EDT [facility] ([facility]) Hemoglobin 9.1(L) 12.0 - 15.0 g/dL 08/20/2024 6:20 AM EDT [facility] ([facility]) Hematocrit 29.1(L) 36.0 - 45.0 % 08/20/2024 6:20 AM EDT [facility] ([facility]) MCV 96.4 82.0 - 98.0 fL 08/20/2024 6:20 AM EDT [facility] ([facility]) MCH 30.1 27.0 - 33.0 pg 08/20/2024 6:20 AM EDT [facility] ([facility]) MCHC 31.3(L) 32.0 - 35.0 g/dL 08/20/2024 6:20 AM EDT [facility] ([facility]) RDW 13.7 11.5 - 15.0 % 08/20/2024 6:20 AM EDT [facility] ([facility]) Platelets 336 150 - 400 10*3/uL 08/20/2024 6:20 AM EDT [facility] ([facility]) Blood Blood sample taken from central line / Unknown Existing Catheter / Unknown 08/20/2024 5:17 AM EDT 08/20/2024 5:58 AM EDT us Mauricio Garcia MD LAB BLOOD ORDERABLES Final Resu lt [facility] ([facility]) [address] [place] [id number] * (ABNORMAL) Basic metabolic panel (08/20/2024 5:17 AM EDT) Only the most recent of5 resultswithin the time period is included. Sodium 142 136 - 145 mmol/L 08/20/2024 6:27 AM EDT [facility] ([facility]) Potassium 3.7 3.5 - 5.1 mmol/L 08/20/2024 6:27 AM EDT [facility] ([facility]) Chloride 109(H) 98 - 107 mmol/L 08/20/2024 6:27 AM EDT [facility] ([facility]) CO2 26 21 - 31 mmol/L 08/20/2024 6:27 AM EDT [facility] ([facility]) BUN 4(L) 7 - 25 mg/dL 08/20/2024 6:27 AM EDT [facility] ([facility]) Creatinine 0.54(L) 0.60 - 1.20 mg/dL 08/20/2024 6:27 AM EDT [facility] ([facility]) Glucose 81 70 - 100 mg/dL 08/20/2024 6:27 AM EDT [facility] ([facility]) Calcium 8.4(L) 8.6 - 10.3 mg/dL 08/20/2024 6:27 AM EDT [facility] ([facility]) Anion Gap 11 7 - 20 mmol/L 08/20/2024 6:27 AM EDT [facility] ([facility]) eGFR 123.1 >60.0 mL/min/1. 73m*2 08/20/2024 6:27 AM EDT [facility] ([facility]) Comment:[facility] s estimated glomerular filtration rate (eGFR) will [...] one group of individuals. BUN/Creatinine Ratio 7.4 07/2024 6:27 AM EDT [facility] ([facility]) Blood Blood sample taken from central line / Unknown Existing Catheter / Unknown 08/20/2024 5:17 AM EDT 08/20/2024 5:57 AM EDT us Mauricio Garcia MD LAB BLOOD ORDERABLES Final Resu lt [facility] ([facility]) [address] [place] [address] * CT abdomen pelvis w IV contrast [...] Electronically signed: Anabelle Mason. Mauricio Garcia MD IMG CT PROCEDURES Final Result * XR chest 1 view (08/18/2024 8:04 [...] MD IMG XR PROCEDURES Final Result * Urinalysis (08/17/2024 6:26 AM EDT) Color, Urine Yellow Colorless, Yellow, Light-Yellow 08/17/2024 6:45 AM EDT [facility] ([facility]) Clarity, Urine Clear Clear 08/17/2024 6:45 AM EDT [facility] ([facility]) pH, Urine 6.0 5.0 - 8.0 pH 08/17/2024 6:45 AM EDT [facility] ([facility]) Leukocytes, Urine Negative Negative 08/17/2024 6:45 AM EDT [facility] ([facility]) Nitrite, Urine Negative Negative 08/17/2024 6:45 AM EDT [facility] ([facility]) Protein, Urine Negative Negative mg/dL 08/17/2024 6:45 AM EDT [facility] ([facility]) Glucose, Urine Normal Normal mg/dL 08/18/19 6:45 AM EDT [facility] ([facility]) Bilirubin, Urine Negative Negative 08/17/2024 6:45 AM EDT [facility] ([facility]) Specific [place], Urine 1.019 1.010 - 1.030 08/17/2024 6:45 AM EDT [facility] ([facility]) Ketones, Urine Negative Negative mg/dL 08/17/2024 6:45 AM EDT [facility] ([facility]) Blood, Urine Negative Negative 08/17/2024 6:45 AM EDT [facility] ([facility]) Urobilinogen, Urine Normal Normal mg/dL 08/17/2024 6:45 AM EDT [facility] ([facility]) Urine Urine specimen obtained by clean catch procedure / Unknown Non-blood Collection / Unknown 08/17/2024 6:26 AM EDT 08/17/2024 6:32 AM EDT Narrative [facility] ([facility]) - 08/17/2024 6:45 AM EDT Microscopics not performed on urines with negative chemical reactions unless requested on original order. Jace Corley PA-C LAB URINE ORDERABLES Final Res ult [facility] ([facility]) [address] [place] [address] * (ABNORMAL) CBC auto differential (08/16/2024 9:37 PM EDT) Auto WBC 4.37 4.00 - 10.60 10*3/uL 08/16/2024 10:08 PM EDT [facility] ([facility]) RBC 2.95(L) 3.80 - 5.00 10*6/uL 08/16/2024 10:08 PM EDT [facility] ([facility]) Hemoglobin 9.0(L) 12.0 - 15.0 g/dL 08/16/2024 10:08 PM T [facility] ([facility]) Hematocrit 27.8(L) 36.0 - 45.0 % 08/16/2024 10:08 PM EDT [facility] ([facility]) MCV 94.2 82.0 - 98.0 fL 08/16/2024 10:08 PM [facility] ([facility]) MCH 30.5 27.0 - 33.0 pg 08/16/2024 10:08 PM [facility] ([facility]) MCHC 32.4 32.0 - 35.0 g/dL 08/16/2024 10:08 PM [facility] ([facility]) RDW 14.2 11.5 - 15.0 % 08/16/2024 10:08 PM [facility] ([facility]) Neutrophils % 61.1 40.0 - 72.0 % 08/16/2024 10:08 PM T [facility] ([facility]) Lymphocytes % 28.8 20.0 - 45.0 % 08/16/2024 10:08 PM T [facility] ([facility]) Monocytes % 8.0 5.0 - 12.0 % 08/16/2024 10:08 PM EDT [facility] ([facility]) Eosinophils % 1.4 0.0 - 6.0 % 08/16/2024 10:08 PM EDT [facility] ([facility]) Basophils % 0.2 0.0 - 1.0 % 08/16/2024 10:08 PM EDT [facility] ([facility]) Neutrophils Absolute 2.67 1.60 - 7.60 10*3/uL 08/16/2024 10:08 PM EDT [facility] ([facility]) Lymphocytes Absolute 1.26 1.20 - 4.00 10*3/uL 08/16/2024 10:08 PM EDT [facility] ([facility]) Monocytes Absolute 0.35 0.10 - 1.00 10*3/uL 08/16/2024 10:08 PM EDT [facility] ([facility]) Eosinophils Absolute 0.06 0.00 - 0.50 10*3/uL 08/16/2024 10:08 PM EDT [facility] ([facility]) Basophils Absolute 0.01 0.00 - 0.20 10*3/uL 08/16/2024 10:08 PM EDT [facility] ([facility]) Platelets 227 150 - 400 10*3/uL 08/16/2024 10:08 PM EDT [facility] ([facility]) nRBC % 0.0 0 % 08/16/2024 10:08 PM EDT [facility] ([facility]) Immature Granulocytes % 0.5 0.0 - 1.0 % 08/16/2024 10:08 PM EDT [facility] ([facility]) Immature Granulocytes Absolute 0.02 0.00 - 0.20 10*3/uL 08/16/2024 10:08 PM EDT [facility] ([facility]) Blood Venous blood specimen / Unknown Existing Catheter / Unknown 08/16/2024 9:37 PM EDT 08/16/2024 10:00 PM EDT Jace Corley PA-C LAB BLOOD ORDERABLES Final Res ult [facility] ([facility]) [address] [place] [address] * Blood culture, peripheral #2 (08/16/2024 9:37 PM EDT) Only the most recent of2 resultswithin the time period is included. Blood Culture No growth at 5 days SANDHYA 08/21/2024 10:01 PM EDT [facility] ([facility]) Blood Venous blood specimen / Unknown Venipuncture / Unknown 08/16/2024 9:37 PM EDT 08/16/2024 9:59 PM EDT Jace Corley PA-C LAB MICROBIOLOGY - GENERAL ORD ERABLES Final Result [facility] ([facility]) [address] [place] [address] * (ABNORMAL) Magnesium (08/16/2024 9:37 PM EDT) Magnesium 1.8(L) 1.9 - 2.7 mg/dL 08/16/2024 10:24 PM EDT [facility] ([facility]) Blood Venous blood specimen / Unknown Existing Catheter / Unknown 08/16/2024 9:37 PM EDT 08/16/2024 10:00 PM EDT Jace Corley PA-C LAB BLOOD ORDERABLES Final Res ult Performing Organization Address City/[facility]/ZIP Co de Phone Number [facility] ([facility]) [address] [place] [address] * (ABNORMAL) Lactic acid, plasma (08/16/2024 9:37 PM EDT) Lactate 0.4(L) 0.5 - 2.2 mmol/L 08/16/2024 10:28 PM EDT [facility]) Blood Venous blood specimen / Unknown Existing Catheter / Unknown 08/16/2024 9:37 PM EDT 08/16/2024 9:59 PM EDT Jace Corley PA-C LAB BLOOD ORDERABLES Final Res ult [facility] ([facility]) [address] [place] [address] * (ABNORMAL) Hepatic function panel (08/16/2024 9:37 PM EDT) Total Bilirubin 0.4 0.3 - 1.0 mg/dL 08/16/2024 10:24 PM EDT [facility] ([facility]) Bilirubin, Direct 0.1 0 - 0.2 mg/dL 08/16/2024 10:24 PM EDT [facility] ([facility]) Alkaline Phosphatase 73 34 - 104 U/L 08/16/2024 10:24 PM EDT [facility] ([facility]) AST 21 13 - 39 U/L 08/16/2024 10:24 PM EDT [facility] ([facility]) ALT (SGPT) 10 7 - 52 U/L 08/16/2024 10:24 PM EDT [facility] ([facility]) Total Protein 5.4(L) 6.0 - 8.3 g/dL 08/16/2024 10:24 PM EDT [facility] ([facility]) Albumin 2.9(L) 3.5 - 5.7 g/dL 08/16/2024 10:24 PM EDT [facility] ([facility]) Blood Venous blood specimen / Unknown Existing Catheter / Unknown 08/16/2024 9:37 PM EDT 08/16/2024 10:00 PM EDT Jace Corley PA-C LAB BLOOD ORDERABLES Final Res ult [facility] ([facility]) [address] [place] [address] from Last 3 Months Insurance [employer] Advance Directives * Full Code (Latest Code Status on File) Date Activated Date Inactivated Comments 08/16/2024 9:21 PM 08/20/2024 5:55 PM Care Teams Airport Traffic Controller Relationship Specialty Start Date End Date Thomas Alas MD [address] [facility] [facility] [place] [address] PCP - General Family Medicine 08/17/24
--- OUTSIDE RECORDS SUMMARY | 2024-08-28 12:42 | XMS_ITS | Encounter Summary ---
Author Organization [facility] Address [address] [place] [address] Care Team Providers Care Weight Recorder Name Role Phone Anna Mendez GENERAL HANDLING SUPERVISOR Unavailable Unallocated, Noms Provider Primary Care Provi pako Tj Najera Unavailable [phone] Thomas Alas MD Primary Care Provider [phone] Encounter Details Date Type Department Care Team (Late st Contact Info) Description 10/30/2022 Abstract [facility] [address] [place] [address] Tj Najera, PA [address] [facility] [place] [address] Social History Tobacco Use Types [...] on filedocumented in this encounter Care Teams Weight Recorder Relationship Specialty Start Date End Date Unallocated, Noms Provider, [address] [place] [address] PCP - General 07/23/22 12/13/23 Tj Najera PA [address] [place] [address] PCP - Medical [facility] 07/16/22 04/24/23 Thomas Alas MD [address] [place] [address] PCP - General Family Medicine 12/14/23 Anna Mendez NP [address] [place] [address] Referring Physician Family Medicine 07/23/22 documented as of this encounter
--- OUTSIDE RECORDS SUMMARY | 2024-08-28 12:42 | XMS_ITS | Encounter Summary ---
Author Organization [facility] Address [address] [place] [address] Care Team Providers Care Community Engagement Coordinator Name Role Phone VanessaAnna hendricks HAND ICER Unavailable Unallocated, Noms Provider Primary Care Provi pako Tj Najera Unavailable [phone] Thomas Alas MD Primary Care Provider [phone] Encounter Details Date Type Department Care Team (Late st Contact Info) Description 10/02/2022 Abstract [facility] [address] [facility] [place] [address] Raegan Frye PA [address] [place], [facility] Social History Tobacco Use Types Packs/Day Years [...] on filedocumented in this encounter Care Teams Community Engagement Coordinator Relationship Specialty Start Date End Date Unallocated, Noms Provider, [place] [address] PCP - General 07/23/22 12/13/23 Tj Najera PA [address] [place] [address] PCP - Medical [facility] 07/16/22 04/24/23 Thomas Alas MD [address] [place] [address] PCP - General Family Medicine 12/14/23 Anna Mendez NP [address] [place] [address] Referring Physician Family Medicine 07/23/22 documented as of this encounter
--- OUTSIDE RECORDS SUMMARY | 2024-08-28 12:42 | XMS_ITS | Encounter Summary ---
Author Organization [facility] Address [address] [place] [address] Care Team Providers Care Labor Custodian Name Role Phone Anna Mendez ORTHOPEDIC RN Unavailable Unallocated, Noms Provider Primary Care Provi pako Tj Najera Unavailable [phone] Thomas Alas MD Primary Care Provider [phone] Encounter Details Date Type Department Care Team (Late st Contact Info) Description 09/07/2022 Abstract [facility] [address] [place] [address] Tj Najera, PA [address] [facility] [place] [address] Social History Tobacco Use Types [...] on filedocumented in this encounter Care Teams Labor Custodian Relationship Specialty Start Date End Date Unallocated, Noms Provider, [address] [place] [address] PCP - General 07/23/22 12/13/23 Tj Najera PA [address] [place] [address] PCP - Medical [facility] 07/16/22 04/24/23 Thomas Alas MD [address] [place] [address] PCP - General Family Medicine 12/14/23 Anna Mendez NP [address] [place] [address] Referring Physician Family Medicine 07/23/22 documented as of this encounter
--- OUTSIDE RECORDS SUMMARY | 2024-08-28 12:42 | XMS_ITS | Encounter Summary ---
Author Organization [facility] Address [address] [place] [address] Care Team Providers Care Medical Communication Specialist Name Role Phone Unavailable Primary Care Provider Unavailabl e Encounter Details Date Type Department Care Team (Latest Contact Info) Description 08/16/2024 Travel Social History Tobacco Use Types Packs/Day Years Used Date Smoking Tobacco: Never Smokeless Tobacco: Never [facility] Utilities Answer Date Recorded In the [...] any time in the past [address] [facility], were you homeless or living in [...] PM EDT documented as of this encounter Functional Status * Suicidal Ideation Question Answer Date of Assessment Author 1. Wish to be (Lifetime) No 08/16/2024 9:45 PM EDT Bailey Ingram, RN 2. Non-Specific Active Suici martha Thoughts (Lifetime) No 08/16/2024 9:45 PM EDT Bailey Ingram RN documented as of this encounter Plan of Treatment Not on file documented as of this encounter Visit Diagnoses Not on filedocumented in this encounter
--- OUTSIDE RECORDS SUMMARY | 2024-08-28 12:42 | XMS_ITS | Clinical Summary ---
Author Organization [facility] Address [address] [place] [address] Care Team Providers Care Marketing Regional Consultant Name Role Phone Anna Mendez WELLNESS INSTRUCTOR Unavailable Thomas Alas MD Primary Care Provider [phone] Allergies Active Allergy Reactions Criticality Noted Date [...] 06/09/19 23 Active Lancets (OneTouch Delica Plus [id number]) misc USE TO TEST BLOOD SUGAR TWICE [...] Hypertensive disorder 09/13/2017 39 weeks gestation of ([facility]) 2016 Polycystic ovaries 10/02/2013 Asthma without status [...] Due Date Last Done Comments Influenza Vaccine (#1) 2024 3, 11/16/2021, 01/01/2021, Additional history exists Cervical Cancer [...] Health Maintenance Insurance [employer] Care Teams Marketing Regional Consultant Relationship Specialty Start Date End Date Thomas Alas MD [address] [place] [address] PCP - General Family Medicine 12/14/23 Anna Mendez NP [address] [place] [address] Referring Physician Family Medicine 07/23/22
--- OUTSIDE RECORDS SUMMARY | 2024-08-28 12:42 | XMS_ITS | Encounter Summary ---
Author Organization [facility] Address [address] [place] [address] Care Team Providers Care Cloth Shrinking Supervisor Name Role Phone Anna Mendez SPAR FINISHER Unavailable Unallocated, Noms Provider Primary Care Provi pako Tj Najera Unavailable [phone] Thomas Alas MD Primary Care Provider [phone] Encounter Details Date Type Department Care Team (Late st Contact Info) Description 10/05/2022 Abstract [facility] [address] [place] [address] Tj Najera, PA [address] [facility] [place] [address] Social History Tobacco Use Types [...] on filedocumented in this encounter Care Teams Cloth Shrinking Supervisor Relationship Specialty Start Date End Date Unallocated, Noms Provider, [address] [address] PCP - General 07/23/22 12/13/23 Tj Najera PA [address] [place] [address] PCP - Medical [facility] 07/16/22 04/24/23 Thomas Alas MD [address] [place] [address] PCP - General Family Medicine 12/14/23 Anna Mendez NP [address] [place] [address] Referring Physician Family Medicine 07/23/22 documented as of this encounter
--- OUTSIDE RECORDS SUMMARY | 2024-08-28 12:43 | XMS_ITS | Encounter Summary ---
Author Organization [facility] Address [address] [place] [address] Care Team Providers Care Floral Specialist Name Role Phone Thomas Alas MD Primary Care Provider [phone] Reason for Referral * Consultation (Routine) - Pending Review Specialty Diagnoses / Procedures Referred By Jazmine hooks Referred To Contact Wound Care Diagnoses Wound cellulitis Mikayla Jennings PA-C [address] [place] [address] Phone: tel: fax: Referral ID Status Reason Start Date Expiration Date Visits Requested Visits Authorized [id number] Pending Review Specialty Services Required 08/20/2024 08/20/2025 1 1 Encounter Details Date Type Department Care Team (Late st Contact Info) Description 08/20/2024 Orders Only [facility] Vascular and Endovascular Surgery [address] [place] [phone] Mikayla Jennings PA-C [address] [place] [phone] Wound cellulitis (Primary Dx) Social History Tobacco Use Types Packs/Day Years Used Date Smoking Tobacco: Never Smokeless Tobacco: Never [facility] Utilities Answer Date Recorded In the [...] any time in the past 12 m [facility], were you homeless or [...] as of this encounter Plan of Treatment Scheduled Referrals Name Type Priority Associated Diagnoses Order Schedule Ambulatory referral to Wound Clinic Outpatient Referral Routine Wound cellulitis Expected: 08/20/2024 (Approximate), Expires: 02/20/2025 documented as of this encounter Visit Diagnoses Diagnosis Wound cellulitis- Primary documented in this encounter Care Teams Floral Specialist Relationship Specialty Start Date End Date Thomas Alas MD [address] [facility] [place] [phone] PCP - General Family Medicine 08/17/24 documented as of this encounter
--- OUTSIDE RECORDS SUMMARY | 2024-08-28 12:43 | XMS_ITS | Encounter Summary ---
Author Organization [facility] [employer] [facility] Address [address] [place] [address] Care Team Providers Care Senior Boiler Operator Name Role Phone Thomas Alas MD Primary Care Provider [phone] Reason for Visit * Reason Onset Date Comments Appointment 04/18/2024 Encounter Details Date Type Department Care Team (Late st Contact Info) Description 04/18/2024 Telephone Central Scheduling [address] [place] [phone] Joanne Shi Appointment Social History Tobacco [...] until 2025. The patient also follows with [facility]. I would recommend maintaining follow up as scheduled and in the meanwhile look for any clinic cancellations for which she could be added, thank you. * Telephone Encounter - Jaonne Yuridia - 04/18/2024 4:33 PM EST GHN TRIAGE (NON-SYMPTOM) MESSAGE Provider: Bina Subject of call: Appointment Reason for call: Dr. Curran told patient to eturn in about 6 months (around 06/28/2024). First available appt is 05/2025. Please advise Preferred call back time: Anytime [phone] Will warm connect patient to nursing line [...] on filedocumented in this encounter Care Teams Senior Boiler Operator Relationship Specialty Start Date End Date Thomas Alas MD PCP - General 12/30/23 documented as of this encounter
--- OUTSIDE RECORDS SUMMARY | 2024-08-28 12:43 | XMS_ITS | Clinical Summary ---
Author Organization [facility] Address [address] [place] [address] Phone Care Team Providers Care Saloon Keeper Name Role Phone Generic Provider, No Assigned [...] from your doctor or pharmacy? Never 06/30/2023 [facility] Utilities Answer Date Recorded In the past 12 months has [facility] [employer] gas, oil, or water [employer] threatened to shut off services in your [...] How often do you attend chur or hindu services? More than 4 times per year 06/30/2023 Do you belong to any clubs o r organizations such as uatsdin groups, unions, fraternal or athletic groups, or [...] Recorded Patient Health Questionnaire-2 Score 2 06/30/2023 [facility]ational Stress Questionnaire Answer [...] place to sleep or slept in a correction (including now)? No 06/30/2023 Comments Unknown Sex [...] Description 08/29/2024 10:15 AM EDT Office Visit [facility] Physician Fabio [address] [place] [address] [place] [address] [place] [address] Health Maintenance Due Date Last Done Comments [...] 07/02/2023, 07/02/2023, Additional history exists Influenza Vaccine (#1) 2024 , 11/16/2021, 01/01/2021, Additional history exists DTaP/Tdap/Td Vaccines [...] this topic Medical Devices Implanted Type Area Clinical Lab Specialist Device Identifier Shelf Expiration Date Model / Serial / Lot Membrane, [employer]rafilm, 5 X 6 In - [id number] Implanted:Qty : 1 on 03/05/2023 by Sherry Holley MD at [facility] Implant N/A: Abdomen [facility] [id number] 10/02/2023 [id number] / / [id number] Procedures Procedure Name Priority Date/Time Associated Diagnosis Comments POCT GLUCOSE Routine 07/03/2023 7:17 AM EDT RENAL FUNCTION PANEL Routine 07/02/2023 6:47 AM EDT from Last 3 Months or Most Recently Relevant to Health Maintenance Results * (ABNORMAL) POCT GLUCOSE (07/03/2023 7:17 AM EDT) POCT Glucose 121(H) 74 - 99 mg/dL 07/03/2023 7:24 AM EDT [facility] Blood Capillary blood specimen / Unknown 07/03/2023 7:17 AM EDT 07/03/2023 7:24 AM EDT Kina Ann MD LAB POINT OF CARE TE ST DOCKED DEVICE UNSOLICITED RESULTS Final Result [facility] [address] [place] [id number] * (ABNORMAL) Renal Function Panel (07/02/2023 6:47 AM EDT) Glucose 101(H) 65 - 99 mg/dL 07/02/2023 7:53 AM EDT [facility] Sodium 137 133 - 145 mmol/L 07/02/2023 7:53 AM EDT [facility] Potassium 3.9 3.4 - 5.1 mmol/L 07/02/2023 7:53 AM EDT [facility] Chloride 103 97 - 107 mmol/L 07/02/2023 7:53 AM EDT [facility] Bicarbonate 23(L) 24 - 31 mmol/L 07/02/2023 7:53 AM EDT [facility] Urea Nitrogen 13 8 - 25 mg/dL 07/02/2023 7:53 AM EDT [facility] Creatinine 0.70 0.40 - 1.60 mg/dL 07/02/2023 7:53 AM EDT [facility] eGFR >90 >60 mL/min/1.7 3m*2 07/02/2023 7:53 AM EDT [facility] Comment: Calculations of estimated GFR are performed using the 2020 CKD-EPI Study Refit equation without the race variable for the IDMS-Traceable creatinine methods. https://jasn.asnjournals.org/content/early//ASN.4855390106 Calcium 8.6 8.5 - 10.4 mg/dL 07/02/2023 7:53 AM EDT [facility] Phosphorus 4.0 2.5 - 4.5 mg/dL 07/02/2023 7:53 AM T [facility] Albumin 4.0 3.5 - 5.0 g/dL 07/02/2023 7:53 AM EDT [facility] Anion Gap 11 <=19 mmol/L 07/02/2023 7:53 AM T [facility] Blood Venous blood specimen / Unknown 07/02/2023 6:47 AM EDT 07/02/2023 6:58 AM EDT Loreto Doty MD LAB BLOOD ORDERABLES F inal Result [facility] [address] [place] [address] from Last 3 Months or Most Recently Relevant to Health Maintenance Insurance [facility] MEDICAID Member Subscriber Plan / Payer (Ef fective 2024-Present) Name:Abbey Garcia Relation to Subscriber:Self Name:Abbey Garcia Payer ID:[id number] (NAIC) Type:Not on file Address: [place] [id number] MEDICAID Advance Directives For more information, please contact: [phone] (Available ) * Full Code (Latest Code Status on File) Date Activated Date Inactivated Comments 03/05/2023 2:37 PM Question Answer Comments Plan of Care: Code Status Discussion Completed Decision Maker: Patient Care Teams Saloon Keeper Relationship Specialty Start Date End Date Generic Provider, No Assigned P[place], [place] [address] PCP - General Supervisor Loading 06/29/23
--- OUTSIDE RECORDS SUMMARY | 2024-08-28 12:43 | XMS_ITS | Clinical Summary ---
Author Organization [facility] Address [address] [place] [address] Care Team Providers Care Patch Sander Name Role Phone Thomas Alas MD Primary Care Provider [phone] Allergies Active Allergy Reactions Criticality Noted Date [...] age to complete this topic Insurance MMO [facility] [employer] Care Teams Patch Sander Relationship Specialty Start Date End Date Thomas Alas MD PCP - General 12/30/23
--- NOTE | 2024-08-28 13:44 | ECG_ITS ---
[facility] Test Date: 2024-08-28 Pat Name: JUAN KONG Department: Room: - Gender: Female Fixed Income Director: : 1990 Requested By: [id number] Order Number: [id number] Reading MD: WILDER DEE Measurements Intervals [place] Rate: 131 P: 99 SC: 124 QRS: 97 QRSD: 78 T: 68 QT: 310 QTc: 387 Interpretive Statements [address] [place] abnormality, possible lateral ischemia 7102 Moderate right axis deviation 9150 abnormal ECG Compared to ECG 08/15/2024 13:03:22 Possible ischemia now present Right-axis deviation now present Sinus rhythm no longer present Electronically Signed On 08-30-2024 13:24:45 EDT by WILDER DEE
--- NOTE | 2024-08-28 13:54 | ED_ITS ---
HPI HPI - General Adult General Chief complaint: Nausea/Vomiting/Diarrhea Stated complaint: SHAKING, NASUEA, BACK PAIN, VOMITING Time Seen by Provider: 08/28/24 13:40 Source: patient Mode of arrival: Wheelchair History of Present Illness HPI narrative: The patient is a 34-year-old female who presents to the emergency department today for evaluation concerns for chills and bodyaches. Patient with complex medical history of MALS, remote history of gastric bypass, subclavian catheter to receive supplemental TPN and recent removal of J-tube on 08/18 due to concerns for bacteremia. Patient states she was admitted initially to this facility on 08/16 for positive blood cultures and was subsequently transferred to [facility] on 08/17 for higher level of care. She mention she had her J-tube removed on 08/18 and had been seen by infectious disease there and subsequently discharged on 08/20 on Augmentin. She mention she has been compliant with antibiotic therapy. She reports for the past 3 to 4 days she again is experiencing chills with some increase in nausea without vomiting. She does endorse some stable and chronic right side abdominal discomfort. Denies any chest pain, shortness of breath, dizziness or syncope. No urinary symptoms. Related Data Home Medications ?Medication ?Instructions ?Recorded ?Confirmed hydroxyzine HCl 25 mg tablet 25 mg PO BID PRN anxiety 09/17/22 08/28/24 topiramate 100 mg tablet 100 mg PO BID 09/17/2208/28 metoclopramide HCl 10 mg tablet 10 mg PO AC PRN nausea and vomiting 06/14/23 08/28/24 escitalopram oxalate 20 mg tablet 20 mg PO DAILY 06/1408/28/24 levothyroxine 75 mcg tablet 75 mcg PO DAILY 06/15/23 0 08/28/24 acetaminophen 325 mg tablet (Pain 650 mg PO Q4H PRN pa in 06/24/23 08/28/24 Relief (acetaminophen)) blood sugar diagnostic (OneTouch 03/29/24 08/16/24 Ultra Test strips) blood-glucose meter (OneTouch 03/29/24 08/16/24 Ultra2 Meter) blood-glucose sensor (FreeStyle 03/29/24 08/16/24 Hunter 3 Plus Sensor device) fentanyl 25 mcg/hr transdermal 1 patch transdermal Q72 H 03/29/24 08/28/24 patch hydrocodone 5 mg-acetaminophen 325 1 tab PO Q4H PRN pa in 03/29/24 08/28/24 mg tablet lancets 30 gauge (OneTouch Delica 03/29/24 08/16/24 Plus Lancet) methocarbamol 500 mg tablet 750 mg PO Q6H 03/29/24 omeprazole 40 mg capsule,delayed 40 mg PO BID 03/29/24 08/28/24 release pen needle, diabetic 32 gauge x 03/29/24 08/16/24 (BD Stefania 2nd Gen Pen Needle) prucalopride 2 mg tablet 2 mg PO DAILY 03/29/2408/28 trazodone 100 mg tablet 100 mg PO .qhs 03/29/2408/15 ergocalciferol (vitamin D2) 1,250 1,250 mcg PO .Q7 09/0808/28/24 mcg (50,000 unit) capsule hydrocortisone 10 mg tablet 10 mg PO DAILY 08/16/24 mirtazapine 45 mg tablet 45 mg PO BEDTIME 08/16/24 ondansetron 4 mg disintegrating 8 mg PO Q4H PRN nausea and vomiting 08/16/24 08/28/24 tablet prochlorperazine maleate 10 mg 10 mg PO TID PRN nausea and 08/16/24 08/28/24 tablet (Compazine) vomiting Previous Rx's ?Medication ?Instructions ?Recorded tramadol 50 mg tablet 50 mg PO Q6H PRN pain #28 ta bs 06/16/23 Allergies Allergy/AdvReac Type Severity Reaction Status Date / Time adhesive Allergy Rash Verified 08/28/24 12:39 NSAIDS (Non-Steroidal Allergy intolerance Verified 08/28/24 12:39 Anti-Inflamma codeine AdvReac Vomiting Verified 08/28/24 12:39 Opioid HPI Opioid Management Most Recent Opioid Data: Last Pain Scale 7 Today, 14:39 Last MAR Pain Assessment Today, 14:39 Last ORT Total Score 0 08/16/24, 04:50 Last ORT Risk Category Low Risk 08/16/24, 04:50 Ur Phencyclidine Scrn, (NEGATIVE) Negative Today, 14:10 Review of Systems ROS Status of ROS 10 or more systems reviewed and unremark able except as noted in history and below [facility] Medical History (Updated 08/28/24 @ 17:12 by Jemma Romeo NP) Hypoglycemia ?E16.2 - Hypoglycemia, unspecified (ICD-10) Gastroenteritis ?K52.9 - Noninfective gastroenteritis and colitis, unspecified (ICD-10) Feeding by G-tube ?Z93.1 - Gastrostomy status (ICD-10) Abdominal pain ?R10.9 - Unspecified abdominal pain (ICD-10) Small bowel intussusception ?K56.1 - Intussusception (ICD-10) Nausea and vomiting ?R11.2 - Nausea with vomiting, unspecified (ICD-10) Flank pain ?R10.9 - Unspecified abdominal pain (ICD-10) Abdominal pain ?R10.9 - Unspecified abdominal pain (ICD-10) Acute abdomen ?R10.0 - Acute abdomen (ICD-10) Intractable nausea and vomiting ?R11.2 - Nausea with vomiting, unspecified (ICD-10) Intractable abdominal pain ?R10.9 - Unspecified abdominal pain (ICD-10) Depression ?F32.A - Depression, unspecified (ICD-10) Asthma ?J45.909 - Unspecified asthma, uncomplicated (ICD-10) Dyspareunia Pelvic pain ?R10.2 - Pelvic and perineal pain (ICD-10) Ovarian cyst ?N83.209 - Unspecified ovarian cyst, unspecified side (ICD-10) PONV (postoperative nausea and vomiting) ?R11.2 - Nausea with vomiting, unspecified (ICD-10) ?Z98.890 - Other specified postprocedural states (ICD-10) PCOS (polycystic ovarian syndrome) ?E28.2 - Polycystic ovarian syndrome (ICD-10) Hypothyroidism (acquired) ?E03.9 - Hypothyroidism, unspecified (ICD-10) Anxiety ?F41.9 - Anxiety disorder, unspecified (ICD-10) GERD (gastroesophageal reflux disease) ?K21.9 - Gastro-esophageal reflux disease without esophagitis (ICD-10) Sleep apnea ?G47.30 - Sleep apnea, unspecified (ICD-10) Anemia ?D64.9 - Anemia, unspecified (ICD-10) Fibromyalgia ?M79.7 - Fibromyalgia (ICD-10) Syncope (07/07/13) ?R55 - Syncope and collapse (ICD-10) Shingles ?B02.9 - Zoster without complications (ICD-10) Headache ?R51.9 - Headache, unspecified (ICD-10) Migraine ?G43.909 - Migraine, unspecified, not intractable, without status migrainosus (ICD-10) Mechanical ileus (01/31/20) ?K56.609 - Unspecified intestinal obstruction, unspecified as to partial versus complete obstruction (ICD-10) COVID-19 (~02/2020) ?U07.1 - COVID-19 (ICD-10) Kidney stones ?N20.0 - Calculus of kidney (ICD-10) Surgical History S/P percutaneous endoscopic gastrostomy (PEG) tube placement ?Z93.1 - Gastrostomy status (ICD-10) 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 - Celiac artery compression syndrome (ICD-10) H/O shoulder surgery (2022) ?Z98.890 - Other specified postprocedural states (ICD-10) History of hip surgery ?Z98.890 - Other specified postprocedural states (ICD-10) S/P right knee arthroscopy ?Z98.890 - Other specified postprocedural states (ICD-10) S/P left knee arthroscopy ?Z98.890 - Other specified postprocedural states (ICD-10) Hx of tonsillectomy ?Z90.89 - Acquired absence of other organs (ICD-10) History of thoracic surgery (~2021) ?Z98.890 - Other specified postprocedural states (ICD-10) History of esophagogastroduodenoscopy (EGD) (10/04/13) ?Z98.890 - Other specified postprocedural states (ICD-10) History of cholecystectomy (10/06/13) ?Z90.49 - Acquired absence of other specified parts of digestive tract (ICD- 10) Delivery by section (~2016) Delivery by section (01/17/18) H/O colonoscopy (~2018) ?Z98.890 - Other specified postprocedural states (ICD-10) S/P right knee arthroscopy (07/21/18) ?Z98.890 - Other specified postprocedural states (ICD-10) Delivery by section (06/19/19) History of appendectomy (09/25/19) ?Z90.49 - Acquired absence of other specified parts of digestive tract (ICD- 10) H/O laparoscopy (11/10/19) ?Z98.890 - Other specified postprocedural states (ICD-10) History of liver biopsy (~04/2020) ?Z98.890 - Other specified postprocedural states (ICD-10) H/O laparoscopy (07/18/20) ?Z98.890 - Other specified postprocedural states (ICD-10) H/O arthroscopy of right knee (08/07/20) ?Z98.890 - Other specified postprocedural states (ICD-10) S/P laparoscopic sleeve gastrectomy (09/03/20) ?Z98.84 - Bariatric surgery status (ICD-10) H/O: hysterectomy (11/12/20) ?Z90.710 - Acquired absence of both cervix and uterus (ICD-10) History of hernia repair (03/20/21) ?Z98.890 - Other specified postprocedural states (ICD-10) ?Z87.19 - Personal history of other diseases of the digestive system (ICD-10) Family History Other Family history of cancer Family history of diabetes mellitus Family history of hypertension Family history of myocardial infarction PONV (postoperative nausea and vomiting) Social History (Updated 08/16/24 @ 04:44 by Shelley Wong) Within the past year, how often did you have a drink containing alcohol: never Score interpretation: A score less than 3 is consistent with normal alcohol consumption. Smoking status: Never smoker Non-prescribed substance use: denies use Previous occupational history: disabled Known occupational exposures/hazards details: disabled Highest level of school completed/degree received: Master's degree Are you now , , , , never or living with a partner: In a typical week, how many times do you talk on the telephone with family, friends, or neighbors: 3 or more times per week How often do you get together with friends or relatives: twice per week How often do you attend rastafarian or gnosticist services: 4 or more times per year Do you belong to any clubs or organizations such as rastafarian groups unions, fraternal or athletic groups, or school groups: no Total score: 3 Score interpretation: A score of greater than or equal to 2 indicates the lowest level of social isolation. Little interest or pleasure in doing things: not at all Feeling down, depressed, or hopeless: not at all Feel stressed/tense/nervous/anxious/difficulty sleeping: to some extent Do you think of yourself as: straight/heterosexual Gender Identity: female Exam Narrative Exam Narrative: Constituational: Awake/ alert, no apparent distress, well hydrated HENMT: normocephalic, external ears normal, moist oral mucous membranes and oropharynx normal Eyes: EOMI and conjunctivae normal Neck: ROM intact Chest: + Intact R subclavian catheter without surrounding edema or erythema, no drainage, otherwise inspection of chest normal Respiratory: Normal respiratory effort, clear to auscultation bilaterally Cardio: regular rate and regular rhythm GI: soft to palpation and non-tender Back: nontender MSK: ROM intact, +NVI Skin: no rashes or petechiae Neuro: no focal deficits Psych: mental status grossly normal Constitutional Vital Signs, click to edit/add: Last Vital Signs Temp 99.8 F 08/28/24 15:50 Pulse 120 H 08/28/24 12:39 Resp 08/28/24 12:39 BP 133/83 08/28/24 12:39 Pulse Ox 96 08/28/24 12:39 O2 Del Method Room Air 08/28/24 12:39 Course Vital Signs Vital signs: Vital Signs Temperature 97.7 F 08/28/24 12:39 Pulse Rate 120 H 08/28/24 12:39 Respiratory Rate 18 08/28/24 12:39 Blood Pressure 133/83 08/28/24 12:39 Pulse Oximetry 96 08/28/24 12:39 Oxygen Delivery Method Room Air 08/28/24 12:39 Temperature 99.8 F 08/28/24 15:50 Pulse Rate 120 H 08/28/24 12:39 Respiratory Rate 18 08/28/24 12:39 Blood Pressure 133/83 08/28/24 12:39 Pulse Oximetry 96 08/28/24 12:39 Oxygen Delivery Method Room Air 08/28/24 12:39 Medical Decision Making MDM Narrative Medical decision making narrative: Patient is a mildly low fatigued-appearing 34-year-old female who presented to the emergency department today for evaluation of concerns for generally not feeling well with chills and bodyaches, abdominal pain, nausea/vomiting. Patient with significant history of MALS requiring supplemental TPN through right subclavian central line. Examination without any acute abdominal findings on exam. She otherwise appears. She does not appear to be exhibiting any ischemic symptoms. She has noted to be febrile with temperature 102 and heart rate in the 120s in the setting of febrile illness. No respiratory distress and she is not hypoxic or hypotensive otherwise. Patient received supportive measures of IV fluids, Zofran, Tylenol, and subsequently Compazine due to ongoing nausea. On serial reevaluation she continues to remain tachycardic with heart rate in the 120s and mildly elevated temperature of 99.8F. She continues to endorse some abdominal discomfort with mostly nausea without vomiting. Lactic 1.3. Blood cultures are pending. Historically patient had been transferred to [facility] after an admission earlier this month where her J-tube was subsequently removed and it appears by the patient's history that the J-tube may have been the source for her bacteremia and infection. Again historically she has been taking Augmentin since discharge on 08/20. Labs below showed no significant leukocytosis, anemia, thrombocytopenia. Electrolytes including renal and hepatic function stable, exception to noted hypokalemia with serum K of 3.1. Patient did receive 40 meq oral replacement. Normal lipase. UA is negative for UTI. Urine drug screen additionally is negative with exception to noted opiates. Chest x-ray without critical findings and CT of abdomen pelvis additionally stable per prior read however as noted for findings suggestive of colitis. Clinical impression abdominal pain with intractable nausea and vomiting. In the setting of febrile illness and remaining tachycardic despite supportive measures as above there is elevated suspicion for possible ongoing infectious etiology despite taking Augmentin and with signs of colitis on the CT scan. Did discuss patient's condition, this, image results, treatments provided by the emergency department with Dr. Montelongo (Hospitalist) [id number] -> patient is excepted for admission. Discussed the above findings and recommendations with the patient. She did she is agreeable with the plan to be mated for further care of the above. Medical Records Medical records reviewed: Yes I reviewed the patient's medical records Lab Data Lab results reviewed: Yes I reviewed the patient's lab results Labs: Lab Results 08/28/24 08/28/24 Range/Units 14:05 14:10 WBC 5.2 (4.0-11.0) 10^3/uL RBC 4.25 (4.20-5.40) 10^6/uL Hgb 12.7 (12.0-16.0) g/dL Hct 38.8 (36.0-48.0) % MCV 91.3 (81.0-99.0) fL MCH 29.9 (26.7-34.0) pg MCHC 32.7 (29.9-35.2) g/dL RDW 13.6 (11.0-15.0) % Plt Count 278 (150-450) 10^3/uL MPV 10.0 (9.5-13.5) fL Seg Neuts % (Manual) 86.0 H (43.0-75.0) Lymphocytes % (Manual) 10.0 L (20.5-60.0) % Monocytes % (Manual) 2.0 (1.7-12.0) % Eosinophils % (Manual) 0.0 L (0.9-7.0) % Basophils % (Manual) 2.0 (0.2-2.0) % Neutrophils # (Manual) 4.47 (1.4-6.5) 10^3/uL Lymphocytes # (Manual) 0.52 L (1.20-3.80) 10^3/uL Monocytes # (Manual) 0.10 L (0.30-0.80) 10^3/uL Eosinophils # (Manual) 0.00 (0.00-0.70) 10^3/uL Basophils # (Manual) 0.10 (0.00-0.10) 10^3/uL Sodium 140 (136-145) mmol/L Potassium 3.1 L (3.5-5.1) mmol/L Chloride 106 (98-107) mmol/L Carbon Dioxide 17.6 L (21.0-32.0) mmol/L Anion Gap 19.5 BUN 9.0 (7.0-18.0) mg/dL Creatinine 0.63 (0.55-1.02) mg/dL Est GFR ( Amer) >60 (>=60 mL/min/1.73m^2) Est GFR (Non-Af Amer) >60 (>=60 mL/min/1.73m^2) BUN/Creatinine Ratio 14.3 Glucose 85 (74-106) mg/dL Lactate 1.4 (0.4-2.0) mmol/L Calcium 8.4 L (8.5-10.1) mg/dL Total Bilirubin 0.5 (0.2-1.0) mg/dL AST 23 (15-37) U/L ALT 13 L (14-59) U/L Alkaline Phosphatase 130 H (46-116) U/L Total Protein 6.2 L (6.4-8.2) g/dL Albumin 2.8 L (3.4-5.0) g/dL Globulin 3.4 g/dL Albumin/Globulin Ratio 0.8 Lipase 40.0 (16.0-77.0) U/L Urine Color Lt. yellow (YELLOW) Urine Clarity Clear (CLEAR) Urine pH 6.0 (5.0-9.0) Ur Specific Kimball 1.015 (1.005-1.025) Urine Protein Negative (NEG/TRACE) mg/dL Urine Glucose (UA) Negative (NEGATIVE) mg/dL Urine Ketones Negative (NEGATIVE) mg/dL Urine Occult Blood Negative (NEGATIVE) Urine Nitrite Negative (NEGATIVE) Urine Bilirubin Negative (NEGATIVE) Urine Urobilinogen 0.2 (0.2-1.0) EU/dL Ur Leukocyte Esterase Negative (NEGATIVE) Urine Opiates Screen Positive A (NEGATIVE) Ur Buprenorphine Scrn Negative (NEGATIVE) Ur Oxycodone Screen Negative (NEGATIVE) Urine Methadone Screen Negative (NEGATIVE) Ur Barbiturates Screen Negative (NEGATIVE) U Tricyclic Antidepress Negative (NEGATIVE) Ur Phencyclidine Scrn Negative (NEGATIVE) Ur Amphetamines Screen Negative (NEGATIVE) U Methamphetamines Scrn Negative (NEGATIVE) U Benzodiazepines Scrn Negative (NEGATIVE) Urine Cocaine Screen Negative (NEGATIVE) U Cannabinoids Screen Negative (NEGATIVE) Imaging Data Chest x-ray: Attestation: I have reviewed the pertinent imaging results. Radiologist's impression: ITS Impressions Abdomen/Pelvis CT 08/28/24 16:04 IMPRESSION: No bowel obstruction or obstructive uropathy. There is mild bladder wall thickening and adjacent fat stranding suspicious for cystitis. There is wall thickening along the ascending colon which is nonspecific possibly relating to colitis. Impression dictated by: Roddy Hutchinson M.D. 08/28/2024 4:46 PM Dictation Location: [facility] Electronically authenticated by: [id number] Y Date: 08/28/2024 16:46 Chest X-Ray 08/28/24 16:09 IMPRESSION: No acute cardiopulmonary pathology. Impression dictated by: Roddy Hutchinson M.D. 08/28/2024 4:40 PM Dictation Location: [facility] Electronically authenticated by: [id number] Y Date: 08/28/2024 16:40 CT scan - abdomen: Attestation: I have reviewed the pertinent imaging results. Radiologist's impression: ITS Impressions Abdomen/Pelvis CT 08/28/24 16:04 IMPRESSION: No bowel obstruction or obstructive uropathy. There is mild bladder wall thickening and adjacent fat stranding suspicious for cystitis. There is wall thickening along the ascending colon which is nonspecific possibly relating to colitis. Impression dictated by: Roddy Hutchinson M.D. 08/28/2024 4:46 PM Dictation Location: [employer] Electronically authenticated by: [id number] Y Date: 08/28/2024 16:46 Chest X-Ray 08/28/24 16:09 IMPRESSION: No acute cardiopulmonary pathology. Impression dictated by: Roddy Hutchinson M.D. 08/28/2024 4:40 PM Dictation Location: [facility] Electronically authenticated by: [id number] Y Date: 08/28/2024 16:40 ECG Data Attestation: I personally reviewed and interpreted this ECG as follows: (Sinus tach with HR 131, no acute changes) Discharge Plan Discharge Patient Disposition: Still a Patient
[2024-08-28 14:36] LABS: Hematocrit 38.8 % (36.0-48.0); Hemoglobin 12.7 g/dL (12.0-16.0); Mean Corpuscular HGB Conc 32.7 g/dL (29.9-35.2); Mean Corpuscular Hemoglobin 29.9 pg (26.7-34.0); Mean Corpuscular Volume 91.3 fL (81.0-99.0); Platelet Count 278 10^3/uL (150-450); Red Blood Count 4.25 10^6/uL (4.20-5.40); White Blood Count 5.2 10^3/uL (4.0-11.0)
[2024-08-28] MEDS: ACETAMINOPHEN 500 MG TABLET 1000 MG PO (14:39)
[2024-08-28 14:44] LABS: Glucose Urine UA NEGATIVE (NEGATIVE)
[2024-08-28 14:55] LABS: Lactate/Lactic Acid 1.4 mmol/L (0.4-2.0)
[2024-08-28 15:02] LABS: Alanine Aminotransferase 13 U/L (14-59); Albumin Globulin Ratio 0.8; Albumin Level 2.8 g/dL (3.4-5.0); Alkaline Phosphatase 130 U/L (46-116); Anion Gap 19.5; Aspartate Amino Transferase 23 U/L (15-37); Blood Urea Nitrogen 9.0 mg/dL (7.0-18.0); Calcium 8.4 mg/dL (8.5-10.1); Carbon Dioxide 17.6 mmol/L (21.0-32.0); Chloride 106 mmol/L (98-107); Estimated GFR (African America >60 (>=60 mL/min/1.73m^2); Estimated GFR (Non-African Ame >60 (>=60 mL/min/1.73m^2); Globulin 3.4 g/dL; Glucose 85 mg/dL (74-106); Lipase 40.0 U/L (16.0-77.0); Potassium 3.1 mmol/L (3.5-5.1); Sodium 140 mmol/L (136-145); Total Protein 6.2 g/dL (6.4-8.2)
[2024-08-28 15:07] LABS: Basophils Abs Manual 0.10 10^3/uL (0.00-0.10); Basophils Percent Manual 2.0 % (0.2-2.0); Eosinophils Absolute Manual 0.00 10^3/uL (0.00-0.70); Eosinophils Percent Manual 0.0 % (0.9-7.0); Lymphocytes Absolute Manual 0.52 10^3/uL (1.20-3.80); Lymphocytes Percent Manual 10.0 % (20.5-60.0); Monocytes Absolute Manual 0.10 10^3/uL (0.30-0.80); Monocytes Percent Manual 2.0 % (1.7-12.0); Segmented Neut Absolute Manual 4.47 10^3/uL (1.4-6.5); Segmented Neutrophils % Manual 86.0 (43.0-75.0)
[2024-08-28 15:09] LABS: Cannabinoid Screen Urine NEGATIVE (NEGATIVE); Methamphetamines Screen Urine NEGATIVE (NEGATIVE); Tricyclic Antidepressant Urine NEGATIVE (NEGATIVE)
[2024-08-28] MEDS: PROCHLORPERAZINE 10 MG/2 ML VIAL IV (15:42)
[2024-08-28] MEDS: POTASSIUM CHLORIDE 10 MEQ ER TABLET 40 MEQ PO (15:42)
--- NOTE | 2024-08-28 16:04 | CT_ITS ---
The [address] [address] Patient Name: JUAN KONG MRN: [id number] date: 1990 Sex: F Assigned Patient Location: ER Current Patient Location: ER Accession/Order Number: [id number] Exam Date: 08/28/2024 16:40 Report Date: 08/28/2024 16:46 At the request of: DOMENICA GARDNER NP Procedure: CT abdomen pelvis w con CT abdomen pelvis w con 08/28/2024 4:05 PM SIGNS AND SYMPTOMS: ^abdomen pain, fever \S.br\ TECHNIQUE: Multidetector ct axial images of the abdomen and pelvis were obtained with IV contrast. Multiplanar reformats were performed and reviewed to further define anatomy and possible pathology. CT was performed with one or more of the following dose reduction techniques: Automated exposure control, adjustment of the mA and/or kV according to patient size, or use of iterative reconstruction technique. COMPARISON: 08/16/2024 FINDINGS: Lower Chest: There is a small pericardial effusion. ABDOMEN: Liver: Multiple hepatic cysts are redemonstrated similar to the prior study. Bile Ducts: Normal caliber. Gallbladder: Previously removed. Pancreas: Within normal limits. Spleen: There is splenomegaly with the spleen measuring 14.0 cm in AP dimension. Adrenals: Within normal limits. Kidneys: There is a simple cyst in the right renal cortex requiring no further follow-up. Pelvis: Reproductive Organs: No pelvic masses. Ureters: Within normal limits. Bladder: There is mild bladder wall thickening and adjacent fat stranding suspicious for cystitis. Bowel: There is evidence of previous appendectomy. There is wall thickening along the ascending colon which is nonspecific possibly relating to colitis. 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 Mesenteric Lymph Nodes: No enlarged mesenteric lymph nodes. Peritoneum: No ascites or free air, no fluid collection. Vessels: Atherosclerotic changes are noted in the abdominal aorta and its branches. Retroperitoneum: Within normal limits. Abdominal Wall: There is evidence of previous midline laparotomy. Bones: Within normal limits. CT/CT abdomen pelvis w con IMPRESSION: No bowel obstruction or obstructive uropathy. There is mild bladder wall thickening and adjacent fat stranding suspicious for cystitis. There is wall thickening along the ascending colon which is nonspecific possibly relating to colitis. Impression dictated by: Roddy Hutchinson M.D. 08/28/2024 4:46 PM Dictation Location: [place] [address] Electronically authenticated by: [id number] Y Date: 08/28/2024 16:46
--- NOTE | 2024-08-28 16:09 | XR_ITS ---
[place] [id number] Patient Name: JUAN KONG MRN: [id number] date: 1990 Sex: F Assigned Patient Location: ER Current Patient Location: ER Accession/Order Number: [id number] Exam Date: 08/28/2024 16:39 Report Date: 08/28/2024 16:40 At the request of: DOMENICA GARDNER NP Procedure: XR chest 2V XR chest 2V 08/28/2024 4:09 PM SIGNS AND SYMPTOMS: Fever, nausea, vomiting, back pain, flank pain, chills PROTOCOL: Frontal and lateral radiographs of the chest COMPARISON: 08/15/2024 FINDINGS: The trachea is midline. There is a similar right IJ line with the tip in the superior vena cava. The heart and mediastinal structures are within normal limits. The lung parenchyma is clear. The bony thorax is intact. XR/XR chest 2V IMPRESSION: No acute cardiopulmonary pathology. Impression dictated by: Roddy Hutchinson M.D. 08/28/2024 4:40 PM Dictation Location: [place] [address] Electronically authenticated by: [id number] Y Date: 08/28/2024 16:40
[2024-08-28] MEDS: 0.9 % SODIUM CHLORIDE 1,000 ML 1000 ML IV (17:44)
[2024-08-28] MEDS: METOCLOPRAMIDE HCL 10 MG/2 ML VIAL IVP (17:44)
[2024-08-28] MEDS: ENOXAPARIN SODIUM 40 MG/0.4 ML SYRINGE SUBQ (20:47)
[2024-08-28] MEDS: TRAMADOL HCL 50 MG TABLET PO (20:47)
[2024-08-28] MEDS: TOPIRAMATE 100 MG TABLET PO (20:47)
[2024-08-28] MEDS: VANCOMYCIN HCL 1,750 MG in 0.9 % SODIUM CHLORIDE 500 ML 250 MG IV (21:08)
[2024-08-28] MEDS: MIRTAZAPINE 15 MG TABLET 45 MG PO (21:09)
[2024-08-28] MEDS: TRAZODONE HCL 50 MG TABLET 100 MG PO (21:09)
[2024-08-28 23:10] LABS: A. calcoaceticus-baumannii Cpx NOT DETECTED (NOT DETECTE); Bacteroides fragilis NOT DETECTED (NOT DETECTE); Candida auris NOT DETECTED (NOT DETECTE); Candida glabrata NOT DETECTED (NOT DETECTE); Enterococcus faecalis NOT DETECTED (NOT DETECTE); Enterococcus faecium NOT DETECTED (NOT DETECTE); Klebsiella aerogenes NOT DETECTED (NOT DETECTE); Proteus spp. NOT DETECTED (NOT DETECTE); Salmonella spp. NOT DETECTED (NOT DETECTE); Serratia marcescens NOT DETECTED (NOT DETECTE); Staphylococcus epidermidis NOT DETECTED (NOT DETECTE); Staphylococcus lugdunensis NOT DETECTED (NOT DETECTE); Staphylococcus spp. NOT DETECTED (NOT DETECTE); Stenotrophomonas maltophilia NOT DETECTED (NOT DETECTE); Streptococcus pyogenes NOT DETECTED (NOT DETECTE); Streptococcus spp. NOT DETECTED (NOT DETECTE)
[2024-08-29 00:39] LABS: CTX-M NOT DETECTED (NOT DETECTE); IMP NOT DETECTED (NOT DETECTE); KPC NOT DETECTED (NOT DETECTE); NDM NOT DETECTED (NOT DETECTE); OXA-48-like NOT DETECTED (NOT DETECTE); Source BLOOD; VIM NOT DETECTED (NOT DETECTE); mcr-1 NOT DETECTED (NOT DETECTE)
[2024-08-29 00:43] LABS: Enterobacterales DETECTED (NOT DETECTE); Klebsiella pneumoniae group DETECTED (NOT DETECTE)
[2024-08-29] MEDS: MORPHINE SULFATE 2 MG/ML SYRINGE IV ×4 (01:04→21:34)
[2024-08-29 03:52] VITALS: BP 120/87; PULSE 83; TEMP 36.2; O2SAT 98
[2024-08-29] MEDS: LEVOTHYROXINE SODIUM 75 MCG TABLET PO (05:36)
[2024-08-29] MEDS: PROCHLORPERAZINE 10 MG/2 ML VIAL 5 MG IV ×2 (05:36→14:34)
[2024-08-29] MEDS: TRAMADOL HCL 50 MG TABLET PO ×2 (05:44→14:34)
[2024-08-29 05:53] LABS: Hematocrit 32.5 % (36.0-48.0); Hemoglobin 10.9 g/dL (12.0-16.0); Immature Granulocytes Abs Auto 0.02 10^3/uL (0.00-0.03); Immature Granulocytes Pct Auto 0.3 % (0.0-0.5); Lymphocytes Absolute Auto 1.5 10^3/uL (1.2-3.8); Mean Corpuscular HGB Conc 33.5 g/dL (29.9-35.2); Mean Corpuscular Hemoglobin 30.7 pg (26.7-34.0); Mean Corpuscular Volume 91.5 fL (81.0-99.0); Platelet Count 227 10^3/uL (150-450); Red Blood Count 3.55 10^6/uL (4.20-5.40); White Blood Count 5.8 10^3/uL (4.0-11.0)
[2024-08-29 06:09] LABS: Alanine Aminotransferase 12 U/L (14-59); Albumin Globulin Ratio 0.7; Albumin Level 2.3 g/dL (3.4-5.0); Alkaline Phosphatase 82 U/L (46-116); Anion Gap 13.4; Aspartate Amino Transferase 17 U/L (15-37); Blood Urea Nitrogen 6.0 mg/dL (7.0-18.0); Calcium 7.9 mg/dL (8.5-10.1); Carbon Dioxide 23.2 mmol/L (21.0-32.0); Chloride 111 mmol/L (98-107); Estimated GFR (African America >60 (>=60 mL/min/1.73m^2); Estimated GFR (Non-African Ame >60 (>=60 mL/min/1.73m^2); Globulin 3.1 g/dL; Glucose 85 mg/dL (74-106); Magnesium 1.7 mg/dL (1.8-2.4); Potassium 3.6 mmol/L (3.5-5.1); Sodium 144 mmol/L (136-145); Total Protein 5.4 g/dL (6.4-8.2)
--- NOTE | 2024-08-29 08:00 | ECG_ITS ---
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
[2024-08-29] MEDS: ESCITALOPRAM 10 MG TABLET 20 MG PO (08:11)
[2024-08-29] MEDS: FENTANYL 25 MCG/HR PATCH.TD72 TD (08:11)
[2024-08-29] MEDS: HYDROCORTISONE 20 MG TABLET 10 MG PO (08:11)
[2024-08-29] MEDS: TOPIRAMATE 100 MG TABLET PO ×2 (08:11→20:42)
[2024-08-29 08:16] VITALS: BP 123/85; PULSE 96; TEMP 36.9; O2SAT 97
--- NOTE | 2024-08-29 09:00 | CM.NOTE ---
Rounds made with Dr. Montelongo, discussed with pt reason for admission and plan of care. Dr. Montelongo discussed with pt possibility of needing higher level of care, pt wishes [facility] to go back to [facility].
[2024-08-29] MEDS: VANCOMYCIN HCL 1,250 MG in 0.9 % SODIUM CHLORIDE 250 ML 166.667 MG IV (10:12)
--- NOTE | 2024-08-29 11:02 | PM.HP ---
HPI H&P: HPI History of Present Illness Chief complaint: Abdominal Pain Untractable nausea and vomiting Narrative: Mrs. 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 Patient was at [facility] last week and there was found to have bacteremia requiring transfer to [place] for J-tube removal. Patient reported that she had the J-tube removed pus came out. Medical team in [place] felt that her bacteremia is likely was coming from the infected J-tube insertion site. She was discharged on Augmentin orally. Patient started to develop fever and chills. She came back to [facility] emergency room. I had decided to admit her and initiate empiric antibiotic. Blood culture came back positive for Klebsiella which is the same bacteria that she had when she was admitted to about 15 days ago. Patient denies any abdominal pain. The J-tube surgical site is healing. She has Hodges catheter in the right upper quadrant of the chest. No erythema or drainage from the ER. Opioid HPI Opioid Management Most Recent Pain and Opioid Data: Last Pain Scale 8 Today, 10:12 Last Pain Assessment 08/28/24, 19:23 Last MAR Pain Assessment 08/28/24, 14:39 Last ORT Total Score 0 08/28/24, 18:16 Last ORT Risk Category Low Risk 08/28/24, 18:16 Ur Phencyclidine Scrn, (NEGATIVE) Negative 08/28/24, 14:10 Review of Systems ROS Narrative No abdominal pain, chest pain, diarrhea, vomiting. No headaches, loss of conscious or seizure. Status of ROS 10 or more systems reviewed and unremarkable except as noted in history and below [facility] Medical History (Updated 08/29/24 @ 11:05 by Kal Montelongo MD) Hypoglycemia ?E16.2 - Hypoglycemia, unspecified (ICD-10) Gastroenteritis ?K52.9 - Noninfective gastroenteritis and colitis, unspecified (ICD-10) Feeding by G-tube ?Z93.1 - Gastrostomy status (ICD-10) Abdominal pain ?R10.9 - Unspecified abdominal pain (ICD-10) Small bowel intussusception ?K56.1 - Intussusception (ICD-10) Nausea and vomiting ?R11.2 - Nausea with vomiting, unspecified (ICD-10) Flank pain ?R10.9 - Unspecified abdominal pain (ICD-10) Abdominal pain ?R10.9 - Unspecified abdominal pain (ICD-10) Acute abdomen ?R10.0 - Acute abdomen (ICD-10) Intractable nausea and vomiting ?R11.2 - Nausea with vomiting, unspecified (ICD-10) Intractable abdominal pain ?R10.9 - Unspecified abdominal pain (ICD-10) Depression ?F32.A - Depression, unspecified (ICD-10) Asthma ?J45.909 - Unspecified asthma, uncomplicated (ICD-10) Dyspareunia Pelvic pain ?R10.2 - Pelvic and perineal pain (ICD-10) Ovarian cyst ?N83.209 - Unspecified ovarian cyst, unspecified side (ICD-10) PONV (postoperative nausea and vomiting) ?R11.2 - Nausea with vomiting, unspecified (ICD-10) ?Z98.890 - Other specified postprocedural states (ICD-10) PCOS (polycystic ovarian syndrome) ?E28.2 - Polycystic ovarian syndrome (ICD-10) Hypothyroidism (acquired) ?E03.9 - Hypothyroidism, unspecified (ICD-10) Anxiety ?F41.9 - Anxiety disorder, unspecified (ICD-10) GERD (gastroesophageal reflux disease) ?K21.9 - Gastro-esophageal reflux disease without esophagitis (ICD-10) Sleep apnea ?G47.30 - Sleep apnea, unspecified (ICD-10) Anemia ?D64.9 - Anemia, unspecified (ICD-10) Fibromyalgia ?M79.7 - Fibromyalgia (ICD-10) Syncope (07/07/13) ?R55 - Syncope and collapse (ICD-10) Shingles ?B02.9 - Zoster without complications (ICD-10) Headache ?R51.9 - Headache, unspecified (ICD-10) Migraine ?G43.909 - Migraine, unspecified, not intractable, without status migrainosus (ICD-10) Mechanical ileus (01/31/20) ?K56.609 - Unspecified intestinal obstruction, unspecified as to partial versus complete obstruction (ICD-10) COVID-19 (~02/2020) ?U07.1 - COVID-19 (ICD-10) Kidney stones ?N20.0 - Calculus of kidney (ICD-10) Surgical History S/P percutaneous endoscopic gastrostomy (PEG) tube placement ?Z93.1 - Gastrostomy status (ICD-10) 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 - Celiac artery compression syndrome (ICD-10) H/O shoulder surgery (2022) ?Z98.890 - Other specified postprocedural states (ICD-10) History of hip surgery ?Z98.890 - Other specified postprocedural states (ICD-10) S/P right knee arthroscopy ?Z98.890 - Other specified postprocedural states (ICD-10) S/P left knee arthroscopy ?Z98.890 - Other specified postprocedural states (ICD-10) Hx of tonsillectomy ?Z90.89 - Acquired absence of other organs (ICD-10) History of thoracic surgery (~2021) ?Z98.890 - Other specified postprocedural states (ICD-10) History of esophagogastroduodenoscopy (EGD) (10/04/13) ?Z98.890 - Other specified postprocedural states (ICD-10) History of cholecystectomy (10/06/13) ?Z90.49 - Acquired absence of other specified parts of digestive tract (ICD-10) Delivery by section (~2016) Delivery by section (01/17/18) H/O colonoscopy (~2018) ?Z98.890 - Other specified postprocedural states (ICD-10) S/P right knee arthroscopy (07/21/18) ?Z98.890 - Other specified postprocedural states (ICD-10) Delivery by section (06/19/19) History of appendectomy (09/25/19) ?Z90.49 - Acquired absence of other specified parts of digestive tract (ICD-10) H/O laparoscopy (11/10/19) ?Z98.890 - Other specified postprocedural states (ICD-10) History of liver biopsy (~04/2020) ?Z98.890 - Other specified postprocedural states (ICD-10) H/O laparoscopy (07/18/20) ?Z98.890 - Other specified postprocedural states (ICD-10) H/O arthroscopy of right knee (08/07/20) ?Z98.890 - Other specified postprocedural states (ICD-10) S/P laparoscopic sleeve gastrectomy (09/03/20) ?Z98.84 - Bariatric surgery status (ICD-10) H/O: hysterectomy (11/12/20) ?Z90.710 - Acquired absence of both cervix and uterus (ICD-10) History of hernia repair (03/20/21) ?Z98.890 - Other specified postprocedural states (ICD-10) ?Z87.19 - Personal history of other diseases of the digestive system (ICD-10) Family History Other Family history of cancer Family history of diabetes mellitus Family history of hypertension Family history of myocardial infarction PONV (postoperative nausea and vomiting) Social History (Updated 08/16/24 @ 04:44 by Shelley Wong) Within the past year, how often did you have a drink containing alcohol: never Score interpretation: A score less than 3 is consistent with normal alcohol consumption. Smoking status: Never smoker Non-prescribed substance use: denies use Previous occupational history: disabled Known occupational exposures/hazards details: disabled Highest level of school completed/degree received: Master's degree Are you now , , , , never or living with a partner: In a typical week, how many times do you talk on the telephone with family, friends, or neighbors: 3 or more times per week How often do you get together with friends or relatives: twice per week How often do you attend temple or scientology services: 4 or more times per year Do you belong to any clubs or organizations such as temple groups unions, fraternal or athletic groups, or school groups: no Total score: 3 Score interpretation: A score of greater than or equal to 2 indicates the lowest level of social isolation. Little interest or pleasure in doing things: not at all Feeling down, depressed, or hopeless: not at all Feel stressed/tense/nervous/anxious/difficulty sleeping: to some extent Do you think of yourself as: straight/heterosexual Gender Identity: female Meds Home Medications and Allergies Home Medications ?Medication ?Instructions ?Recorded ?Confirmed ?Type hydroxyzine HCl 25 mg tablet 25 mg PO BID PRN anxiety 09/17/22 08/28/24 History topiramate 100 mg tablet 100 mg PO BID 09/17/22 08/28/24 History metoclopramide HCl 10 mg tablet 10 mg PO AC PRN nausea and vomiting 06/14/23 08/28/24 History escitalopram oxalate 20 mg tablet 20 mg PO DAILY 06/15/23 08/28/24 History levothyroxine 75 mcg tablet 75 mcg PO DAILY 06/15/23 08/28/24 History tramadol 50 mg tablet 50 mg PO Q6H PRN pain #28 tabs 06/16/23 08/28/24 Rx acetaminophen 325 mg tablet (Pain 650 mg PO Q4H PRN pain 06/24/23 08/28/24 History Relief (acetaminophen)) blood sugar diagnostic ([facility] 03/29/24 08/16/24 History Ultra Test strips) blood-glucose meter ([facility] 03/29/24 08/16/24 History Ultra2 Meter) blood-glucose sensor ([employer] 03/29/24 08/16/24 History Hunter 3 Plus Sensor device) fentanyl 25 mcg/hr transdermal 1 patch transdermal Q72H 03/29/24 08/28/24 History patch hydrocodone 5 mg-acetaminophen 325 1 tab PO Q4H PRN pain 03/29/24 08/28/24 History mg tablet lancets [facility] 03/29/24 08/16/24 History Plus Lancet) methocarbamol 500 mg tablet 750 mg PO Q6H 03/29/24 08/28/24 History omeprazole 40 mg capsule,delayed 40 mg PO BID 03/29/24 08/28/24 History release pen needle, diabetic 32 gauge x 03/29/24 08/16/24 History 5/32 (BD Stefania 2nd Gen Pen Needle) prucalopride 2 mg tablet 2 mg PO DAILY 03/29/24 08/28/24 History trazodone 100 mg tablet 100 mg PO .qhs 03/29/24 08/28/24 History ergocalciferol (vitamin D2) 1,250 1,250 mcg PO .Q7 06/21/24 08/28/24 History mcg (50,000 unit) capsule hydrocortisone 10 mg tablet 10 mg PO DAILY 08/16/24 08/28/24 History mirtazapine 45 mg tablet 45 mg PO BEDTIME 08/16/24 08/28/24 History ondansetron 4 mg disintegrating 8 mg PO Q4H PRN nausea and vomiting 08/16/24 08/28/24 History tablet prochlorperazine maleate 10 mg 10 mg PO TID PRN nausea and 08/16/24 08/28/24 History tablet (Compazine) vomiting Allergies Allergy/AdvReac Type Severity Reaction Status Date / Time adhesive Allergy Rash Verified 08/28/24 12:39 NSAIDS (Non-Steroidal Allergy intolerance Verified 08/28/24 12:39 Anti-Inflamma codeine AdvReac Vomiting Verified 08/28/24 12:39 Exam Narrative Exam Narrative: [pt is awake and alert. oriented to place, time and person HEENT: [place] conjunctiva and NL buccal mucosa Neck: Supple, no tenderness Endocrine: No Thyromegaly. Vascular: No JVD or carotid bruit. Lymphatic: No cervical lymphadenopathy. Chest: CTA no DTP. Patient had a catheter in the right upper corner of the chest. Minimal discomfort there, no swelling, no erythema, no drainage. Heart RRR, no extra sound or murmur. Abd: Soft, no tenderness, no rebound and no rigidity. Increase abd girth therefore clinically I could not exclude the possibility of intra abd mass or organomegaly. Surgical previous J-tube site is healing. No pus or drainage. LE: No cyanosis or clubbing, no varices or edema. Neuro: A A O. Nl speech, comprehension and attention. Nl and symetrical motor and tone examination through out. []] Constitutional Vital Signs, click to edit/add: Last Vital Signs Temp 98.4 F 08/29/24 08:16 Pulse 96 H 08/29/24 08:16 Resp 16 08/29/24 08:16 BP 123/85 08/29/24 08:16 Pulse Ox 97 08/29/24 08:16 O2 Del Method Room Air 08/29/24 08:16 Results Labs Labs: Short CBC 08/28/24 08/29/24 Range/Units 14:10 05:43 WBC 5.2 5.8 (4.0-11.0) 10^3/uL Hgb 12.7 10.9 L (12.0-16.0) g/dL Hct 38.8 32.5 L (36.0-48.0) % Plt Count 278 227 (150-450) 10^3/uL [facility] 08/28/24 08/29/24 14:10 05:43 Sodium 140 144 Potassium 3.1 L 3.6 Chloride 106 111 H Carbon Dioxide 17.6 L 23.2 BUN 9.0 6.0 L Creatinine 0.63 0.52 L Glucose 85 85 Calcium 8.4 L 7.9 L Liver Function 08/28/24 08/29/24 Range/Units 14:10 05:43 Total Bilirubin 0.5 0.4 (0.2-1.0) mg/dL AST 23 17 (15-37) U/L ALT 13 L 12 L (14-59) U/L Alkaline Phosphatase 130 H 82 (46-116) U/L Albumin 2.8 L 2.3 L (3.4-5.0) g/dL Urine 08/28/24 Range/Units 14:05 Urine Color Lt. yellow (YELLOW) Urine Clarity Clear (CLEAR) Urine pH 6.0 (5.0-9.0) Ur Specific [place] 1.015 (1.005-1.025) Urine Protein Negative (NEG/TRACE) mg/dL Urine Glucose (UA) Negative (NEGATIVE) mg/dL Assessment and Plan Assessment and Plan (1) Bacteremia: (2) Mild dehydration: (3) Sepsis: Plan Sepsis and bacteremia present on admission. Blood cultures positive for Klebsiella which is the same organism that the patient had in her blood 2 weeks ago here at [facility]. Patient was transferred to [place]. The suspicion was the J-tube insertion infected site was the source of bacteremia. J-tube was removed. Patient reported that copious amount of pus or drainage came out from the site. Patient was discharged home on Augmentin and return back to [facility] where she was found to have persistent bacteremia I had accepted to admit patient back and started on ceftriaxone 1 g twice a day Repeat blood culture in 48 hours Check CRP. Obtain records from [facility]. Less likely infection site is the catheter she has in the right upper quadrant of the chest Colitis seen on CT. No diarrhea no abdominal pain Hypokalemia and hypomagnesia Potassium and magnesium supplementation. DVT prophy Lovenox subcu Anemia, no evidence of acute blood loss. Patient will likely require to have anemia workup to be done in the outpatient setting to be handled by PCP in collaboration with other needed outpatient providers. This may include but not limited to EGD, colonoscopy, referral to see hematology and other needed age-appropriate cancer screening. Hypothyroidism Continue Synthroid Chronic medical conditions not listed above, incidental findings seen on labs and imaging. These would need to be addressed. Could be addressed when time and condition are appropriate. Could be addressed in the outpatient setting by PCP collaboration with other needed outpatient providers.
[2024-08-29] MEDS: MAGNESIUM SULFATE/D5W 1 GM/100 ML PREMIX IV (11:51)
[2024-08-29] MEDS: POTASSIUM CHLORIDE 10 MEQ ER TABLET 20 MEQ PO (11:51)
[2024-08-29] MEDS: MAGNESIUM OXIDE 400 MG TABLET PO (11:51)
[2024-08-29] MEDS: DIPHENHYDRAMINE HCL 25 MG CAPSULE PO (14:34)
[2024-08-29 16:06] VITALS: BP 98/63; PULSE 80; TEMP 36.7; O2SAT 96
[2024-08-29 19:23] VITALS: BP 116/82; PULSE 76; TEMP 36.6; O2SAT 97
[2024-08-29] MEDS: ENOXAPARIN SODIUM 40 MG/0.4 ML SYRINGE SUBQ (20:42)
[2024-08-29] MEDS: MIRTAZAPINE 15 MG TABLET 45 MG PO (21:34)
[2024-08-29] MEDS: TRAZODONE HCL 50 MG TABLET 100 MG PO (21:34)
[2024-08-30] VITALS (7 sets, daily range): BP systolic 104–130; BP diastolic 70–85; PULSE 69–84; TEMP 36.6–36.8; O2SAT 93–97
[2024-08-30] MEDS: PROCHLORPERAZINE 10 MG/2 ML VIAL 5 MG IV ×3 (03:11→18:23)
[2024-08-30] MEDS: MORPHINE SULFATE 2 MG/ML SYRINGE IV ×5 (03:11→21:16)
[2024-08-30] MEDS: LEVOTHYROXINE SODIUM 75 MCG TABLET PO (05:42)
[2024-08-30] MEDS: MAGNESIUM OXIDE 400 MG TABLET PO (08:58)
[2024-08-30] MEDS: ESCITALOPRAM 10 MG TABLET 20 MG PO (08:59)
[2024-08-30] MEDS: TOPIRAMATE 100 MG TABLET PO ×2 (08:59→20:05)
[2024-08-30] MEDS: HYDROCORTISONE 20 MG TABLET 10 MG PO (08:59)
--- NOTE | 2024-08-30 09:49 | CM.NOTE ---
Plan of care reviewed with Dr. Montelongo. Continue with current treatment plan.
--- NOTE | 2024-08-30 09:54 | P.PN_ITS ---
Progress Note: Subjective Subjective Interval history: Patient is feeling fairly well. No chest or abdominal pain. Brown material oozing from the previous G-tube site. Exam Narrative Exam Narrative: [pt is awake and alert. oriented to place, time and person HEENT: [place] conjunctiva and NL buccal mucosa Neck: Supple, no tenderness Endocrine: No Thyromegaly. Vascular: No JVD or carotid bruit. Lymphatic: No cervical lymphadenopathy. Chest: CTA no DTP. Patient had a catheter in the right upper corner of the chest. No tenderness, no swelling, no erythema, no drainage. Heart RRR, no extra sound or murmur. Abd: Soft, no tenderness, no rebound and no rigidity. Increase abd girth therefore clinically I could not exclude the possibility of intra abd mass or organomegaly. Surgical previous J-tube site is healing. No pus or drainage. Minimal brownish material is oozing from the wound site. No tenderness LE: No cyanosis or clubbing, no varices or edema. Neuro: A A O. Nl speech, comprehension and attention. Nl and symetrical motor and tone examination through out. []] Constitutional Vital Signs, click to edit/add: Last Vital Signs Temp 98.2 F 08/30/24 08:01 Pulse 84 08/30/24 08:01 Resp 18 08/30/24 08:01 BP 119/82 08/30/24 08:01 Pulse Ox 97 08/30/24 08:01 O2 Del Method Room Air 08/30/24 08:01 Progress Note: A&P Assessment and Plan (1) Bacteremia: (2) Mild dehydration: (3) Sepsis: Plan Sepsis and bacteremia present on admission. Bacteremia present on admission Blood cultures positive for Klebsiella which is the same organism that the patient had in her blood 2 weeks ago here at [place]. Patient was transferred to [place]. The suspicion was the J-tube insertion infected site was the source of bacteremia. J-tube was removed. Patient reported that copious amount of pus or drainage came out from the site. Patient was discharged home on Augmentin and return back to [place] where she was found to have persistent bacteremia I had accepted to admit patient back and started on ceftriaxone 1 g twice a day Repeat blood culture in 48 hours Check CRP. Obtain records from [facility]. Less likely infection site is the catheter she has in the right upper quadrant of the chest Colitis seen on CT. No diarrhea no abdominal pain Hypokalemia and hypomagnesia Potassium and magnesium supplementation. DVT prophy Lovenox subcu Anemia, no evidence of acute blood loss. Patient will likely require to have anemia workup to be done in the outpatient setting to be handled by PCP in collaboration with other needed outpatient providers. This may include but not limited to EGD, colonoscopy, referral to see hematology and other needed age-appropriate cancer screening. Hypothyroidism Continue Synthroid Chronic medical conditions not listed above, incidental findings seen on labs and imaging. These would need to be addressed. Could be addressed when time and condition are appropriate. Could be addressed in the outpatient setting by PCP collaboration with other needed outpatient providers.
--- NOTE | 2024-08-30 18:33 | DIETREC ---
Recommend 237 mL Ensure Original BID for added nutrients. Pt requests w/breakfast and dinner.
[2024-08-30] MEDS: ENOXAPARIN SODIUM 40 MG/0.4 ML SYRINGE SUBQ (20:05)
[2024-08-30] MEDS: MIRTAZAPINE 15 MG TABLET 45 MG PO (21:16)
[2024-08-30] MEDS: TRAZODONE HCL 50 MG TABLET 100 MG PO (21:16)
[2024-08-31] VITALS (7 sets, daily range): BP systolic 110–126; BP diastolic 46–84; PULSE 61–82; TEMP 36.4–36.6; O2SAT 95–99
[2024-08-31] MEDS: MORPHINE SULFATE 2 MG/ML SYRINGE IV ×3 (04:02→18:32)
[2024-08-31] MEDS: LEVOTHYROXINE SODIUM 75 MCG TABLET PO (05:46)
[2024-08-31 05:51] LABS: Hematocrit 31.2 % (36.0-48.0); Hemoglobin 10.1 g/dL (12.0-16.0); Mean Corpuscular HGB Conc 32.4 g/dL (29.9-35.2); Mean Corpuscular Hemoglobin 29.9 pg (26.7-34.0); Mean Corpuscular Volume 92.3 fL (81.0-99.0); Platelet Count 210 10^3/uL (150-450); Red Blood Count 3.38 10^6/uL (4.20-5.40); White Blood Count 3.3 10^3/uL (4.0-11.0)
[2024-08-31 06:11] LABS: Anion Gap 13.7; Blood Urea Nitrogen 3.0 mg/dL (7.0-18.0); Calcium 8.2 mg/dL (8.5-10.1); Carbon Dioxide 22.8 mmol/L (21.0-32.0); Chloride 115 mmol/L (98-107); Estimated GFR (African America >60 (>=60 mL/min/1.73m^2); Estimated GFR (Non-African Ame >60 (>=60 mL/min/1.73m^2); Glucose 89 mg/dL (74-106); Magnesium 1.9 mg/dL (1.8-2.4); Potassium 3.5 mmol/L (3.5-5.1); Sodium 148 mmol/L (136-145)
[2024-08-31] MEDS: HYDROCORTISONE 20 MG TABLET 10 MG PO (08:16)
[2024-08-31] MEDS: ESCITALOPRAM 10 MG TABLET 20 MG PO (08:16)
[2024-08-31] MEDS: TRAMADOL HCL 50 MG TABLET PO ×3 (08:16→21:45)
[2024-08-31] MEDS: PROCHLORPERAZINE 10 MG/2 ML VIAL 5 MG IV ×3 (08:16→21:44)
[2024-08-31] MEDS: TOPIRAMATE 100 MG TABLET PO ×2 (08:17→21:31)
[2024-08-31] MEDS: MAGNESIUM OXIDE 400 MG TABLET PO (08:17)
--- NOTE | 2024-08-31 11:54 | P.PN_ITS ---
Progress Note: Subjective Subjective Interval history: Patient is feeling fairly well. No chest or abdominal pain. Brown material oozing from the previous G-tube site. Exam Narrative Exam Narrative: [pt is awake and alert. oriented to place, time and person HEENT: [place] conjunctiva and NL buccal mucosa Neck: Supple, no tenderness Endocrine: No Thyromegaly. Vascular: No JVD or carotid bruit. Lymphatic: No cervical lymphadenopathy. Chest: CTA no DTP. Patient had a catheter in the right upper corner of the chest. No tenderness, no swelling, no erythema, no drainage. Heart RRR, no extra sound or murmur. Abd: Soft, no tenderness, no rebound and no rigidity. Increase abd girth therefore clinically I could not exclude the possibility of intra abd mass or organomegaly. Surgical previous J-tube site is healing. No pus or drainage. Minimal brownish material is oozing from the wound site. No tenderness. Less drainage compared to yesterday. LE: No cyanosis or clubbing, no varices or edema. Neuro: A A O. Nl speech, comprehension and attention. Nl and symetrical motor and tone examination through out. []] Constitutional Vital Signs, click to edit/add: Last Vital Signs Temp 97.7 F 08/31/24 11:51 Pulse 82 08/31/24 11:51 Resp 16 08/31/24 11:51 BP 115/77 08/31/24 11:51 Pulse Ox 99 08/31/24 11:51 O2 Del Method Room Air 08/31/24 11:51 Progress Note: Objective Labs Labs: Short CBC 08/31/24 Range/Units 05:10 WBC 3.3 L (4.0-11.0) 10^3/uL Hgb 10.1 L (12.0-16.0) g/dL Hct 31.2 L (36.0-48.0) % Plt Count 210 (150-450) 10^3/uL BMP 08/31/24 05:10 Sodium 148 H Potassium 3.5 Chloride 115 H Carbon Dioxide 22.8 BUN 3.0 L Creatinine 0.51 L Glucose 89 Calcium 8.2 L Progress Note: A&P Assessment and Plan (1) Bacteremia: (2) Mild dehydration: (3) Sepsis: Plan Sepsis and bacteremia present on admission. Bacteremia present on admission Blood cultures positive for Klebsiella which is the same organism that the patient had in her blood 2 weeks ago here at [place]. Patient was transferred to [place]. The suspicion was the J-tube insertion infected site was the source of bacteremia. J-tube was removed. Patient repo rted that copious amount of pus or drainage came out from the site. Patient was discharged home on Augmentin and return back to [place] where she was found to have persistent bacteremia I had accepted to admit patient back and started on ceftriaxone 1 g twice a day Repeat blood culture completed on 08/30. Result is pending. Check CRP. Obtain records from [facility]. Obtained and reviewed Less likely infection site is the catheter she has in the right upper quadrant of the chest Colitis seen on CT. No diarrhea no abdominal pain Hypokalemia and hypomagnesia Potassium and magnesium supplementation. DVT prophy Lovenox subcu Anemia, no evidence of acute blood loss. Patient will likely require to have anemia workup to be done in the outpatient setting to be handled by PCP in collaboration with other needed outpatient providers. This may include but not limited to EGD, colonoscopy, referral to see hematology and other needed age-appropriate cancer screening. Hypothyroidism Continue Synthroid Chronic medical conditions not listed above, incidental findings seen on labs and imaging. These would need to be addressed. Could be addressed when time and condition are appropriate. Could be addressed in the outpatient setting by PCP collaboration with other needed outpatient providers.
--- NOTE | 2024-08-31 11:55 | CM.NOTE ---
Rounds made with Dr. Montelongo, plan of care discussed with pt. Awaiting culture results, continue IV antibiotics. Pt verbalizes overall feeling better. No discharge today.
[2024-08-31] MEDS: CLOTRIMAZOLE TOPICAL ×2 (13:55→21:31)
[2024-08-31] MEDS: BETAMETHASONE DIP TOPICAL ×2 (13:55→21:31)
[2024-08-31] MEDS: ENOXAPARIN SODIUM 40 MG/0.4 ML SYRINGE SUBQ (21:31)
[2024-08-31] MEDS: TRAZODONE HCL 50 MG TABLET 100 MG PO (21:34)
[2024-08-31] MEDS: MIRTAZAPINE 15 MG TABLET 45 MG PO (21:34)
[2024-08-31] MEDS: METHOCARBAMOL 500 MG TABLET PO (21:45)
[2024-09-01] MEDS: MORPHINE SULFATE 2 MG/ML SYRINGE IV ×5 (00:17→18:30)
[2024-09-01] MEDS: TRAMADOL HCL 50 MG TABLET PO ×2 (03:22→21:43)
[2024-09-01 03:51] VITALS: BP 120/83; PULSE 73; TEMP 36.5; O2SAT 92
[2024-09-01] MEDS: LEVOTHYROXINE SODIUM 75 MCG TABLET PO (05:59)
[2024-09-01 07:52] VITALS: BP 110/75; PULSE 67; TEMP 36.3; O2SAT 96
[2024-09-01] MEDS: ESCITALOPRAM 10 MG TABLET 20 MG PO (08:24)
[2024-09-01] MEDS: HYDROCORTISONE 20 MG TABLET 10 MG PO (08:24)
[2024-09-01] MEDS: MAGNESIUM OXIDE 400 MG TABLET PO (08:24)
[2024-09-01] MEDS: TOPIRAMATE 100 MG TABLET PO ×2 (08:24→21:39)
[2024-09-01] MEDS: FENTANYL 25 MCG/HR PATCH.TD72 TD (08:24)
[2024-09-01] MEDS: BETAMETHASONE DIP TOPICAL ×2 (08:28→21:40)
[2024-09-01] MEDS: CLOTRIMAZOLE TOPICAL ×2 (08:28→21:40)
--- NOTE | 2024-09-01 09:15 | CM.NOTE ---
Rounds made with Dr. Montelongo, awaiting culture results. Pt continues having drainage from old J-tub site but has decreased. No discharge today.
--- NOTE | 2024-09-01 09:54 | CA_ITS ---
Patient Name: JUAN KONG MR#: [id number] : 1990 Exam Date: 09/01/2024 Ordering Doctor: MARITZA WILSON ECHOCARDIOGRAM REPORT PROCEDURE: CA ECHO DOPPLER COMPLETE INDICATIONS: bacteremia r/o endocarditis COMPARISON: None. DESCRIPTION: COMPLETE ECHOCARDIOGRAM Real-time transthoracic echocardiography with 2D, M-mode, spectral and color flow Doppler performed. QUALITY: Technical quality was good. LEFT VENTRICLE: Normal chamber size. Normal left ventricular wall thickness. LV EF: Normal left ventricle systolic function without wall motion abnormalities, ejection fraction around 55 to 60% DIASTOLIC: Normal diastolic function. ATRIAL SEPTUM: Appears intact LEFT ATRIUM: Normal chamber size. RIGHT ATRIUM: Normal chamber size. RIGHT VENTRICLE: Normal chamber size. Normal right ventricular systolic function. TRICUSPID VALVE:Normal mobility and thickness. No vegetations are present. No stenosis with trivial regurgitation. No evidence of pulmonary hypertension.RVSP 24mmHg. No vegetations noted on tricuspid valve MITRAL VALVE: Normal mobility and thickness. No vegetations are present. No evidence of mitral valve stenosis. There is no mitral annular calcification. Trivial mitral regurgitation. AORTIC VALVE: Normal trileaflet appearance. No visible sclerosis. Normal leaflet mobility. No vegetations are present. No evidence of aortic valve stenosis. Trivial aortic regurgitation. AORTIC ROOT: Normal diameter and appearance. PULMONIC VALVE:Normal thickness and mobility. No stenosis. No regurgitation. No vegetations are present. PERICARDIUM: Trivial pericardial effusion. IVC: Collapes with inspirations. Normal size. PLEURA: CONCLUSION: Normal left ventricular size, wall thickness, and systolic function without wall motion abnormalities, ejection fraction 60% Normal left ventricle diastolic function Normal right ventricular size and systolic function Normal right-sided pressures No significant valvular abnormalities No obvious vegetations on any of the cardiac valves Trivial pericardial effusion Adult Echocardiography Procedure Report Left Ventricle LVEDD (3.7 - 5.6 cm): 4.62 cm LVESD (2.2 - 4.0 cm): 2.99 cm LVIVS thickness (0.6 - 1.2 cm): 0.80 cm LVPW thickness (0.5 - 1.0 cm): 0.96 cm e': 0.14 m/s E - e': 5.28 LVOT Max Gradient: 6.21 mm[Hg] LVOT Area (cm2): 1.25 m/s Peak Velocity (LVOT): 1.25 m/s Mean Velocity (LVOT): 0.84 m/s LVOT Diameter 2.15 cm Left Ventricular Ejection Fraction: Left Atrium LA Volume Index (2D A2C): 30.24 ml/m2 Left Atrium Systolic Dimension: 4.00 cm Mitral Valve MV E to A Ratio: 1.48, 1.34 MV Max Gradient: MV Mean Gradient: Mitral Valve A-Wave Peak Velocity: 0.54 m/s Mitral Valve E-Wave Peak Velocity: 0.76 m/s Cardiovascular Orifice Area: Right Ventricle RV Internal Diastolic Dimension: 3.88 cm Aorta AO Root Diam: 2.81 cm Ascending Ao Diam: 2.77 cm Aortic Valve AoV Area (Peak Manan): 3.68 cm2, 3.63 cm2 AoV Area (VTI): 3.35 cm2, 3.28 cm2 Deceleration Baldwin: Pressure Half-Time: Peak Velocity(Antegrade Flow): 1.25 m/s, 1.21 m/s Peak Gradient(Antegrade Flow): 6.21 mm[Hg], 5.86 mm[Hg] Mean Velocity(Antegrade Flow): 0.87 m/s, 0.84 m/s Mean Gradient(Antegrade Flow): 3.48 mm[Hg], 3.24 mm[Hg] Velocity Time Integral: 25.63 cm, 24.64 cm Tricuspid Valve Peak Velocity (Regurgitant Flow): 2.30 m/s, 2.07 m/s Peak Velocity: Pulmonic Valve Mean Gradient: 2.00 mm[Hg], 2.11 mm[Hg] Mean Velocity: 0.66 m/s, 0.68 m/s Peak Velocity: 0.95 m/s Peak Gradient: 3.51 mm[Hg], 3.73 mm[Hg] Right Atrium Right Atrium Systolic Pressure: 40.60 ml, 40.60 ml Dictated by: Emily Moya MD on 09/03/2024 at 18:20 Approved by: Emily Moya MD on 09/03/2024 at 18:25
--- NOTE | 2024-09-01 09:54 | PM.PN ---
Progress Note: Subjective Subjective Interval history: Patient is feeling fairly well. No chest or abdominal pain. Brown material oozing from the previous G-tube site. Less volume of secretion oozing from the previous G-tube site Exam Narrative Exam Narrative: [pt is awake and alert. oriented to place, time and person HEENT: [place] conjunctiva and NL buccal mucosa Neck: Supple, no tenderness Endocrine: No Thyromegaly. Vascular: No JVD or carotid bruit. Lymphatic: No cervical lymphadenopathy. Chest: CTA no DTP. Patient had a catheter in the right upper corner of the chest. No tenderness, no swelling, no erythema, no drainage. Heart RRR, no extra sound or murmur. Abd: Soft, no tenderness, no rebound and no rigidity. Increase abd girth therefore clinically I could not exclude the possibility of intra abd mass or organomegaly. Surgical previous J-tube site is healing. No pus or drainage. Minimal brownish material is oozing from the wound site. No tenderness. Less drainage compared to yesterday. Erythema with satellite lesions around the site consistent with fungal Inspection: LE: No cyanosis or clubbing, no varices or edema. Neuro: A A O. Nl speech, comprehension and attention. Nl and symetrical motor and tone examination through out. []] Constitutional Vital Signs, click to edit/add: Last Vital Signs Temp 97.4 F L 09/01/24 07:52 Pulse 67 09/01/24 07:52 Resp 16 09/01/24 07:52 BP 110/75 09/01/24 07:52 Pulse Ox 96 09/01/24 07:52 O2 Del Method Room Air 09/01/24 07:52 Progress Note: A&P Assessment and Plan (1) Bacteremia: (2) Mild dehydration: (3) Sepsis: Plan Sepsis and bacteremia present on admission. Bacteremia present on admission Blood cultures positive for Klebsiella which is the same organism that the patient had in her blood 2 weeks ago here at [place]. Patient was transferred to [place]. The suspicion was the J-tube insertion infected site was the source of bacteremia. J-tube was removed. Patient reported that copious amount of pus or drainage came out from the site. Patient was discharged home on Augmentin and return back to [place] where she was found to have persistent bacteremia I had accepted to admit patient back and started on ceftriaxone 1 g twice a day Repeat blood culture completed on 08/30. Result is pending. Check CRP. Although the likelihood that patient has Klebsiella endocarditis is is less likely. I requested echo to rule out any major vegetation Obtain records from [facility]. Obtained and reviewed Less likely infection site is the catheter she has in the right upper quadrant of the chest Candidiasis around the surgical site Lotrisone twice a day. Colitis seen on CT. No diarrhea no abdominal pain Hypokalemia and hypomagnesia Potassium and magnesium supplementation. DVT prophy Lovenox subcu Anemia, no evidence of acute blood loss. Patient will likely require to have anemia workup to be done in the outpatient setting to be handled by PCP in collaboration with other needed outpatient providers. This may include but not limited to EGD, colonoscopy, referral to see hematology and other needed age-appropriate cancer screening. Hypothyroidism Continue Synthroid Chronic medical conditions not listed above, incidental findings seen on labs and imaging. These would need to be addressed. Could be addressed when time and condition are appropriate. Could be addressed in the outpatient setting by PCP collaboration with other needed outpatient providers.
[2024-09-01] MEDS: PROCHLORPERAZINE 10 MG/2 ML VIAL 5 MG IV ×2 (10:33→18:30)
[2024-09-01 15:17] VITALS: BP 111/79; PULSE 66; TEMP 36.4; O2SAT 97
[2024-09-01 20:00] VITALS: BP 120/64; PULSE 75; TEMP 36.8; O2SAT 96
[2024-09-01] MEDS: MIRTAZAPINE 15 MG TABLET 45 MG PO (21:39)
[2024-09-01] MEDS: ENOXAPARIN SODIUM 40 MG/0.4 ML SYRINGE SUBQ (21:39)
[2024-09-01] MEDS: TRAZODONE HCL 50 MG TABLET 100 MG PO (21:39)
[2024-09-02] VITALS: BP 136/85; PULSE 91; TEMP 36.5; O2SAT 98
[2024-09-02] MEDS: PROCHLORPERAZINE 10 MG/2 ML VIAL 5 MG IV (00:51)
[2024-09-02] MEDS: MORPHINE SULFATE 2 MG/ML SYRINGE IV (00:51)
[2024-09-02 03:52] VITALS: BP 100/62; PULSE 56; TEMP 36.6; O2SAT 95
[2024-09-02 04:16] VITALS: O2SAT 95
[2024-09-02] MEDS: TRAMADOL HCL 50 MG TABLET PO (05:46)
[2024-09-02] MEDS: LEVOTHYROXINE SODIUM 75 MCG TABLET PO (05:47)
[2024-09-02 07:37] VITALS: BP 130/82; PULSE 65; TEMP 36.7; O2SAT 96
[2024-09-02] MEDS: ESCITALOPRAM 10 MG TABLET 20 MG PO (08:49)
[2024-09-02] MEDS: HYDROCORTISONE 20 MG TABLET 10 MG PO (08:49)
[2024-09-02] MEDS: MAGNESIUM OXIDE 400 MG TABLET PO (08:49)
[2024-09-02] MEDS: ACETAMINOPHEN 325 MG TABLET 650 MG PO (08:50)
[2024-09-02] MEDS: BETAMETHASONE DIP TOPICAL (08:50)
[2024-09-02] MEDS: CLOTRIMAZOLE TOPICAL (08:50)
[2024-09-02] MEDS: TOPIRAMATE 100 MG TABLET PO (08:50)
--- NOTE | 2024-09-02 09:19 | P.DS_ITS ---
DS: Providers Provider Date of admission: 08/28/24 18:04 Primary care physician: Thomas Alas MD Consults: 08/29/24 Consult to Dietitian Routine Reason for consultation: check calorie intake DS: Diagnosis Discharge Diagnosis (1) Bacteremia: (2) Mild dehydration: (3) Sepsis: Plan As listed above and others that are not listed DS: Summary Hospital Course Hospital Course: Mrs Garcia is a 34-year-old female who came in with fever and chills and was found to have the following: Sepsis and bacteremia present on admission. Bacteremia present on admission Blood cultures positive for Klebsiella which is the same organism that the patient had in her blood 2 weeks ago here at [place]. 2 weeks ago, patient was transferred to [place]. The suspicion was the J-tube insertion infected site was the source of bacteremia. J-tube was removed. Patient reported that copious amount of pus or drainage came out from the site. Patient was discharged home on Augmentin and return back to [place] where she was found to have persistent bacteremia I had accepted to admit patient back and started on ceftriaxone 1 g twice a day Repeat blood culture completed on 08/30. Result is pending. Check CRP. Although the likelihood that patient has Klebsiella endocarditis is is less likely. I requested echo to rule out any major vegetation. Echocardiogram is pending Obtain records from [facility]. Obtained and reviewed Less likely infection site is the catheter she has in the right upper quadrant of the chest Repeat blood culture is negative at 36 hours. Patient is afebrile. Inflammatory markers are improving Patient will be discharged home on 2 weeks course of Ceftin Candidiasis around the surgical site Lotrisone twice a day. Colitis seen on CT. No diarrhea no abdominal pain Hypokalemia and hypomagnesia Potassium and magnesium supplementation. DVT prophy Lovenox subcu Anemia, no evidence of acute blood loss. Patient will likely require to have anemia workup to be done in the outpatient setting to be handled by PCP in collaboration with other needed outpatient providers. This may include but not limited to EGD, colonoscopy, referral to see hematology and other needed age-appropriate cancer screening. Hypothyroidism Continue Synthroid Polypharmacy I recommend the patient to discuss this with her primary care doctor. I strongly recommend simplification of her regimen to reduce risk of adverse e ffect or drug?drug interaction Chronic medical conditions not listed above, incidental findings seen on labs and imaging. These would need to be addressed. Could be addressed when time and condition are appropriate. Could be addressed in the outpatient setting by PCP collaboration with other needed outpatient providers. Patient will be given the following instructions: I may not have addressed or treated all of your medical illnesses or the abnormal blood work or imaging studies during this hospitalization. Please ask your primary care provider to obtain [facility] records entirely to follow up on all of the abnormal physical, laboratory, and imaging findings that I have not addressed. Please return back to the emergency room or seek medical attention if your symptoms worsen or return. Please return back to the emergency room if you develop fever and chills. Please return back to the emergency room if you develop worsening drainage from the G-tube site. If you continue to eat well and adequately I would recommend removal of catheter in the right upper quadrant of your chest to be handled by [facility] team. Please report back to the emergency room if you develop pain, swelling and tenderness around the catheter in the right upper quadrant of your chest. You are taking a lot of medications that could potentially cause you to have side effect or could potentially interact with each other and cause you harm. Please discuss this with your primary care doctor and ask primary care doctor to simplify your medication regimen to reduce your risk Discharging you from [facility] does not mean that your medical care ends here and now. You may still need additional monitoring, work up, investigation, and treatment plan to be handled from this point on by out patient providers including your primary care provider and specialists. For any medication question, please contact your retail pharmacist or your primary care provider. Thank you. Patient has multiple complex medical issues as listed above and others that are not listed. All appear to be stable. I do not have any clear or strong clinical justification to extend inpatient hospitalization. Patient however will require close and frequent monitoring as well as additional work-up, investigation and therapeutic intervention that could take place from this point on post discharge. That is to prevent relapse, decompensation, rehospitalization and other medical implications. I instructed patient to ask her primary care doctor to obtain [facility] record entirely to address abnormalities seen on labs and imaging that I have and have not addressed during this hospitalization, follow-up on pending blood work, imaging and pathology is if available and to follow-up on needed medical care in the outpatient setting. Time Spent with Patient Time attestation: Total time spent providing and/or coordinating discharge services: Time spent: greater than 30 minutes Exam Narrative Exam Narrative: [pt is awake and alert. oriented to place, time and person HEENT: [place] conjunctiva and NL buccal mucosa Neck: Supple, no tenderness Endocrine: No Thyromegaly. Vascular: No JVD or carotid bruit. Lymphatic: No cervical lymphadenopathy. Chest: CTA no DTP. Patient had a catheter in the right upper corner of the chest. No tenderness, no swelling, no erythema, no drainage. Heart RRR, no extra sound or murmur. Abd: Soft, no tenderness, no rebound and no rigidity. Increase abd girth therefore clinically I could not exclude the possibility of intra abd mass or organomegaly. Surgical previous J-tube site is healing. No pus or drainage. Minimal brownish material is oozing from the wound site. No tenderness. Less drainage compared to yesterday. Erythema with satellite lesions around the site consistent with fungal Inspection: LE: No cyanosis or clubbing, no varices or edema. Neuro: A A O. Nl speech, comprehension and attention. Nl and symetrical motor and tone examination through out. []] Constitutional Vital Signs, click to edit/add: Last Vital Signs Temp 98.0 F 09/02/24 07:37 Pulse 65 09/02/24 07:37 Resp 16 09/02/24 07:37 BP 130/82 09/02/24 07:37 Pulse Ox 96 09/02/24 07:37 O2 Del Method Room Air 09/02/24 07:37 DS: Data Data Completed and Pending Labs on day of discharge: Preliminary micro results at discharge 08/28/24 14:10 Anaerobe Identification - Preliminary Blood - Port 08/30/24 10:15 Blood Culture Result 2 - Preliminary Blood NO GROWTH AT 36-48 HOURS. FINAL TO FOLLOW. 08/30/24 10:12 Blood Culture Result 1 - Preliminary Blood NO GROWTH AT 36-48 HOURS. FINAL TO FOLLOW. 08/28/24 14:24 Blood Culture Result 2 - Preliminary Blood NO GROWTH AT 36-48 HOURS. FINAL TO FOLLOW. 08/28/24 14:10 Blood Culture Result 1 - Preliminary Blood Discharge Plan Discharge Disposition: Home, Self-Care Discharge Medications: New cefdinir 300 mg capsule 300 mg PO Q12H 14 Days Qty: 28 0RF Lactobacillus acidoph-L. bifid 1 billion cell wafer 1 tab PO BID Qty: 40 0RF Rx Instructions: administer (preferably) with milk Continued fentanyl 25 mcg/hr patch 72 hour 1 patch transdermal Q72H hydrocodone-acetaminophen 5-325 mg tablet 1 tab PO Q4H PRN (Reason: pain) omeprazole 40 mg capsule,delayed release(DR/EC) 40 mg PO BID prucalopride 2 mg tablet 2 mg PO DAILY trazodone 100 mg tablet 100 mg PO .qhs mirtazapine 45 mg tablet 45 mg PO BEDTIME hydrocortisone 10 mg tablet 10 mg PO DAILY ondansetron 4 mg tablet,disintegrating 8 mg PO Q4H PRN (Reason: nausea and vomiting) hydroxyzine HCl 25 mg tablet 25 mg PO BID PRN (Reason: anxiety) topiramate 100 mg tablet 100 mg PO BID metoclopramide HCl 10 mg tablet 10 mg PO AC PRN (Reason: nausea and vomiting) levothyroxine 75 mcg tablet 75 mcg PO DAILY escitalopram oxalate 20 mg tablet 20 mg PO DAILY tramadol 50 mg tablet 50 mg PO Q6H PRN (Reason: pain) Qty: 28 0RF acetaminophen [Pain Relief (acetaminophen)] 325 mg tablet 650 mg PO Q4H PRN (Reason: pain) ergocalciferol (vitamin D2) 1,250 mcg (50,000 unit) capsule 1,250 mcg PO .Q7 Changed methocarbamol 500 mg tablet 500 mg PO BID PRN (Reason: Muscle spasm) Qty: 0 0RF Discontinued prochlorperazine maleate [Compazine] 10 mg tablet 10 mg PO TID PRN (Reason: nausea and vomiting) No Action (DME) blood-glucose meter [OneTouch Ultra2 Meter] Misc MISCELLANEOUS (DME) OneTouch Ultra Test Strip MISCELLANEOUS (DME) FreeStyle Hunter 3 Plus Sensor Device MISCELLANEOUS (DME) lancets [OneTouch Delica Plus Lancet] 30 gauge misc MISCELLANEOUS (DME) pen needle, diabetic [BD Stefania 2nd Gen Pen Needle] 32 gauge x needle MISCELLANEOUS Print Language: Azeri Activity Restrictions/Additional Instructions: I may not have addressed or treated all of your medical illnesses or the abnormal blood work or imaging studies during this hospitalization. Please ask your primary care provider to obtain [facility] records entirely to follow up on all of the abnormal physical, laboratory, and imaging findings that I have not addressed. Please return back to the emergency room or seek medical attention if your symptoms worsen or return. Please return back to the emergency room if you develop fever and chills. Please return back to the emergency room if you develop worsening drainage from the G-tube site. If you continue to eat well and adequately I would recommend removal of catheter in the right upper quadrant of your chest to be handled by [facility] team. Please report back to the emergency room if you develop pain, swelling and tenderness around the catheter in the right upper quadrant of your chest. You are taking a lot of medications that could potentially cause you to have side effect or could potentially interact with each other and cause you harm. Please discuss this with your primary care doctor and ask primary care doctor to simplify your medication regimen to reduce your risk Discharging you from [facility] does not mean that your medical care ends here and now. You may still need additional monitoring, work up, investigation, and treatment plan to be handled from this point on by out patient providers including your primary care provider and specialists. For any medication question, please contact your retail pharmacist or your primary care provider. Thank you. Forms: Portal Instructions
--- NOTE | 2024-09-04 08:35 | PC.NURSE ---
Follow up appt. with Dr. Alas on 09/11 @ 9:15
--- NOTE | 2024-09-04 13:58 | CM.DCFOLLOWU ---
Person spoke with: Abbey How are you feeling? Much better How is your pain? No pain Did you understand your discharge instructions? Yes Do you have any questions about your discharge instructions? No Were you given any prescriptions at discharge? yes Were you able to get your prescriptions filled? Yes Do you understand how to take your medications as ordered? Yes Do you have any questions about your follow up appointment and do you plan to keep your follow up appointment? F/U appointment made for patient today and information provided to patient Is there anything else that you would like to discuss? No Questions/Comments/Concerns/Other:
== END 2024-09-02 10:35 | disposition home or self-care (01) | DRG 252 ==
LOC: ER 17:12 → MS 18:33
PROVIDERS: Nurse Practitioner; Admitting Provider Internal Medicine; Emergency Provider Emergency Medicine; PCP Family Medicine; Visit Provider Internal Medicine
DX: K94.22 Gastrostomy infection (principal); A41.59 Other Gram-negative sepsis; E86.0 Dehydration; K52.9 Noninfective gastroenteritis and colitis, unspecified; E87.6 Hypokalemia; E83.42 Hypomagnesemia; D64.9 Anemia, unspecified; E03.9 Hypothyroidism, unspecified; Z79.890 Hormone replacement therapy; Z98.84 Bariatric surgery status; J45.909 Unspecified asthma, uncomplicated; F41.9 Anxiety disorder, unspecified; K21.9 Gastro-esophageal reflux disease without esophagitis; G47.30 Sleep apnea, unspecified; M79.7 Fibromyalgia; Z86.16 Personal history of COVID-19; Z87.442 Personal history of urinary calculi; Z90.49 Acquired absence of other specified parts of digestive tract; Z90.710 Acquired absence of both cervix and uterus; B37.89 Other sites of candidiasis; Z79.899 Other long term (current) 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; F32.A Depression, unspecified; Y84.8 Other medical procedures as the cause of abnormal reaction of the patient, or of later complication, without mention of misadventure at the time of the procedure
CPT/HCPCS: 36415; 36591; 36592; 71046; 74177; 80048; 80053; 80307; 81003; 82948; 83605; 83690; 83735; 84100; 84703; 85007; 85025; 85027; 87040; 87077; 87150; 87186; 93005; 93306; 96374; 96375; 99285; J0696; J0780; J1650; J2270; J2405; J2765; J3370; J3475; J8499; Q9967

== ENCOUNTER 2024-09-15 16:28 | Emergency (ER) | payer MEDICAID, SELFPAY ==
--- OUTSIDE RECORDS SUMMARY | 2024-08-15 05:30 | XMS_ITS ---
Author Organization [facility] Address [address] [place] [address] Care Team Providers Care Insole Coverer Name Role Phone Ashley Bryson Primary Care Provider [phone] REASON FOR VISIT FILLING Encounters Encounter Location Date Provider Diagnosis [address] [place] [address] 08/15/2024 Ashley Bryson Plan Of Treatment Next Appt Details Provider Name:Christina Dominguez, 11/03/2024 02:15:00 PM, [address], [place], [address], Progress Notes * JUAN KONG MDOB:1990 (34 yo F)Acc No.[id number]:08/15/2024 Patient: JUAN OSBORNE Provider: Carito Bryson DDS :1990 A ge:34 Y S ex:Female Date:08/15/2024 Address:[address] [place] [phone] Subjective: * Chief Complaints: * 1 . FILLING. * Medical History: Objective: * Vitals: Assessment: Plan: * Treatment: * Images: * Electronic signature of Panfilo Bryson DDS on 09/15/2024 at 04:40 PM EDT Sign off status: Pending * Provider: Carito Bryson DDS Date: 08/15/2024 Generated for Hailey jordan/Ari/eTransmitting on: 0 09/15/2024 04:40 PM EDT
--- OUTSIDE RECORDS SUMMARY | 2024-09-11 05:15 | XMS_ITS ---
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 Name Role Phone Brandyn Alas Primary Care Provider Allergies Allergen (clinical drug ingredient) Drug/Non Drug Allergy documented on EMR Reaction Allergy Type Onset Date Status codeine Codeine vomiting Drug Allergy Active Non-steroidal anti-inflammatory agent (FN) NSAIDs Gastric bypass Drug Allergy Active REASON FOR VISIT TCM d/c 09/02 sepsis, Currently on Cefdinir, Increase in Nausea Medications Medication SIG (Take, Route, Frequency, Duration) Notes Start Date End Date Status Topamax 100 MG 1 tablet Orally BID for 30 days 06/23/2023 Active traMADol HCl 50 MG 1 tablet as needed Orally qid for 30 days As needed PRN 09/04/2024 Active traZODone HCl 100 MG 1 tablet Orally bedtime 11/18/2023 Active Nextance 2 w/Device USE TO MONITOR BLOOD GLUCOSE LEVELS DAILY for 30 Active Prucalopride Succinate 2 MG 1 tablet Orally Once a day for 30 days Active Remeron 30 MG 1.5 tablet at bedtime Orally Once a day 06/23/2023 Active Test Strips - Test sugar Once daily for 90 days Dx: E11.9 03/22/2024 Active Ondansetron 4 MG 1-2 tablet on the tongue and allow to dissolve Orally q4h for 30 days As needed 09/29/2023 Active Methocarbamol 500 MG TAKE 1.5 TABLETS BY MOUTH EVERY 6 HRS FOR 30 DAYS for 30 Active Metoclopramide HCl 10 MG 1 tablet before meals Orally achs for 30 days 08/07/2024 Active Levothyroxine Sodium 75 MCG 1 tablet in the morning on an empty stomach Orally Once a day for 30 days 06/23/2023 Active Lexapro 20 MG 1 tablet Orally Once a day 06/23/2023 Active Liothyronine Sodium 5 MCG 1 tablet on an empty stomach Orally Once a day for 30 days 06/23/2023 Active FreeStyle Hunter 3 Sensor Use to monitor glucose multiple times daily DX Diabetes with hypoglycemia episodes- change once every 10 days for 30 days 10/14/2023 Active HYDROcodone-Acetaminoph en 5-325 MG 1 - 2 tablet as needed - max 6/day Orally every 6 hrs for 14 days K56.600 K56.600 09/04/2024 Active Hydrocortisone 10 MG 1 tablet with food or milk Orally once a day PRN- Injection Active hydrOXYzine HCl 50 MG 1 tablet Orally On ce a day at bedtime for 30 days Active Lancets 30G - Use 1 lancet E11.9 once daily for 90 03/22/2024 Active fentaNYL 25 MCG/HR 1 patch to skin Transdermal Q3d for 30 days 08/15/2024 Active Ferrous Sulfate 325 (65 Fe) MG 1 tablet Orally weekly for 30 days 07/19/2023 Active FreeStyle Hunter 3 [place] Use to monitor glucose levels multiple times daily DX Diabetes with hypoglycemic episodes for 365 days 10/14/2023 Active Dxbqnhlgmj-BSIB-Aydwiup e 50-325-40 MG TAKE 1 TABLET BY MOUTH EVERY 4 HOURS NEEDED FOR HEADACHE for 4 PRN 04/21/2024 Active Compazine 10 MG 1 tablet as needed Orally Three times a day 12/22/2023 Active Social History Tobacco Use: Social History Observation Description Date Details (start date - stop date) Never Smoker NA - NA Tobacco Control (Standard) Question Answer Notes Tobacco use: Nonsmoker Problems Problem Type SNOMED Code ICD Code Onset Dates Problem Status W/U Status Risk Notes Problem Sepsis (06448699) Sepsis (A41.9) Active confirmed Vital Signs Blood pressure systolic 130 mm Hg 09/12/19 25 Blood pressure diastolic 84 mm Hg 025 Height 66 in 09/11/2024 Weight 176 lbs 09/11/2024 BMI 28.4 kg/m2 09/11/2024 Encounters Encounter Location Date Provider Diagnosis [facility] [address] [place] [address] 09/11/2024 Brandyn Alas Sepsis A41.9 Assessments Encounter Date Diagnosis (ICD Code) Assessment Notes Treatment Notes Treatment Clinical Notes Section Notes 09/11/2024 Sepsis (ICD-10 - A41.9) Plan Of Treatment Pending Test Test Name Order Date Blood Culture 1 09/11/2024 Blood Culture 2 09/11/2024 Progress Notes * Abbey KONG MDOB:1990 (34 yo F)Acc No.[id number]:09/11/2024 Progress Note Patient: Abbey OSBORNE Provider: Du Alas ([facility])MD :1990 A ge:34 Y S ex:Female Date:09/11/2024 Address:[address] [place], [place] [id number] Check In:09:25 AM ESTCheck O ut:10:01 AM EST Subjective: * Chief Complaints: * T CM d/c 09/02 sepsisCurrently on CefdinirIncrease in Nausea * HPI: G eneral: no fever - no chils - doing wel with het cefdinir - except for nausea has zofran at home withteh compizinre. * ROS: E ENT: hearing changes d enies. v isual changes d enies.?non-healing mouth sores d enies. s wollen glands or neck lumps d enies. h oarseness d enies. s ore throat d enies. d ifficulty swallowing d enies. n ose bleeds d enies. n santhosh congestion d enies. e ar ache d enies. e ar discharge?denies. r inging in ears d enies. l ight sensitivity d enies. e ye pain d enies. b lurring d enies. e ye irritation d enies. d ouble vision d enies.?vision loss d enies. G eneral/Constitutional: Sweats: D enies. F atigue d enies. S leep problems d enies. A norexia d enies. M alaise d enies. W eight loss d enies.?Fatigue or Weakness d enies. F ever or Chills d enies. C ardiovascular: Shortness of Breath w/lying flat d enies. L ightheadedness/dizziness d enies. C hest tightness/ heavy pressure d enies. S welling of legs, ankles, or feet d enies. W aking up with shortness of breath d enies. C hest pain denies. P alpitations d enies. W eight gain d enies. R espiratory: Chronic or frequent cough d enies. C oughing up blood?denies. D ifficulty breathing d enies. P roductive cough d enies. S noring?denies. S hortness of breath that awakens from sleep (PND) d enies. C hest pain d enies. S putum production d enies. W heezing d enies. M usculoskeletal: Joint pain d enies. J oint Fluid d enies. B ack pain d enies. K nee pain d enies. N mike pain d enies. J oint Stiffness d enies. M uscle cramps d enies. W eakness of muscles d enies. A rthritis d enies. M uscle aches d enies. P ain in shoulder(s) d enies. S wollen joints d enies. * Active Problem List J45.909 Asthma Modified On:06/23/2023 Status:confirmed K21.9 GERD (gastroesophage al reflux disease) Modified On:06/23/2023U Status:confirmed E03.9 Hypothyroidism Modified On:06/23/2023U Status:confirmed F41.9 Anxiety Modified On:06/23/2023U Status:confirmed G43.909 Migraine Modified On:06/23/2023U Status:confirmed K58.9 IBS (irritable bowel syndrome) Modified On:06/23/2023U Status:confirmed E16.2 Hypoglycemia Modified On:06/23/2023U Status:confirmed E43 Severe protein-calor ie malnutrition Modified On:06/30/2023U Status:confirmed Z93.1 PEG (percutaneous en doscopic gastrostomy) status Modified On:06/30/2023 Status:confirmed E03.9 Acquired hypothyroid ism Modified On:06/30/2023U Status:confirmed F41.1 EDWAR (generalized anx iety disorder) Modified On:06/30/2023U Status:confirmed Z93.[address] Modified On:07/21/2023 Status:confirmed H10.10 Allergic conjunctivi tis Modified On:08/23/2023 Status:confirmed R60.0 Facial edema Modified On:08/23/2023 Status:confirmed D70.9 Neutropenia Modified On:09/27/2023 Status:confirmed E44.0 Moderate malnutritio n Modified On:09/27/2023 Status:confirmed K56.600 Partial intestinal o bstruction, unspecified as to cause Modified On:09/29/2023U Status:confirmed Z93.4 Jejunostomy tube pre sent Modified On:11/24/2023 Status:confirmed 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 Modified On:01/03/2024U Status:confirmed E34.9 Low testosterone lev el in female Modified On:01/25/2024U Status:confirmed Z93.1 Feeding by G-tube Modified On:04/17/2024U Status:confirmed F41.9 Anxiety disorder Modified On:04/17/2024U Status:confirmed M54.16 Lumbar radiculopathy Modified On:04/17/2024U Status:confirmed K31.84 Gastroparesis Modified On:04/17/2024U Status:confirmed D72.829 Elevated white blood cell count Modified On:08/10/2024U Status:confirmed A41.9 Sepsis Modified On:09/11/2024U Status:confirmed * Medical History: * Surgical History: G astric bypass ESAREAN DELIVERYx3 APPENDECTOMY CHOLECYSTECTOMY MALS Surgery 02/2023J Tube removal 2024 * Hospitalization/Major Diagno stic Procedure: s ee above- [facility], [facility]- malnutrition, DM 06/2023FR- Hypoglycemia 1124Hypoglycemia/ Bowel Obstruction 02/07Sepsis 08/2024 * Family History: F ather: alive, thyroid disease, diagnosed with Unspecified essential hypertension. M other: alive, diagnosed with Unspecified essential hypertension, Diabetes mellitus without mention of complication, type II or unspecified type, not stated as uncontrolled. B rother(s): alive, thyroid disease, diagnosed with Unspecified essential hypertension. S ister(s): alive. S on(s): alive, Autisim. D germaniaer(s): alive, Autisim, attention deficit hyperactivity disorder. 2 brother(s) - healthy. 1 son(s) , 2 daughter(s) . . * Social History: T obacco Use: T obacco Control (Standard) T obacco use: N onsmoker * Medications: T lsiqlXkxdimnxso-LRYC-Jednmyck 50-325-40 MG Tablet TAKE 1 TABLET BY MOUTH EVERY 4 HOURS NEEDED FOR HEADACHE , Notes to Pharmacist: PRNCompazine 10 MG Tablet 1 tablet as needed Orally Three times a day fentaNYL 25 MCG/HR Patch 72 Hour 1 patch to skin Transdermal Q3d Ferrous Sulfate 325 (65 Fe) MG Tablet 1 tablet Orally weekly FreeStyle Hunter 3 [place] Use to monitor glucose levels multiple times daily DX Diabetes with hypoglycemic episodes FreeStyle Hunter 3 Sensor Use to monitor glucose multiple times daily DX Diabetes with hypoglycemia episodes- change once every 10 days HYDROcodone-Acetaminophen 5-325 MG Tablet 1 - 2 tablet as needed - max 6/day Orally every 6 hrs K56.600, Notes to Pharmacist: K56.600Hydrocortisone 10 MG Tablet 1 tablet with food or milk Orally once a day , Notes to Pharmacist: PRN- InjectionhydrOXYzine HCl 50 MG Tablet 1 tablet Orally Once a day at bedtime Lancets 30G - Miscellaneous Use 1 lancet E11.9 once daily Levothyroxine Sodium 75 MCG Tablet 1 tablet in the morning on an empty stomach Orally Once a day Lexapro(Escitalopram Oxalate) 20 MG Tablet 1 tablet Orally Once a day Liothyronine Sodium 5 MCG Tablet 1 tablet on an empty stomach Orally Once a day Methocarbamol 500 MG Tablet TAKE 1.5 TABLETS BY MOUTH EVERY 6 HRS FOR 30 DAYS Metoclopramide HCl 10 MG Tablet 1 tablet before meals Orally achs Ondansetron 4 MG Tablet Disintegrating 1-2 tablet on the tongue and allow to dissolve Orally q4h As neededOneTouch Ultra 2(Blood Glucose Monitoring Suppl) w/Device Kit USE TO MONITOR BLOOD GLUCOSE LEVELS DAILY Prucalopride Succinate 2 MG Tablet 1 tablet Orally Once a day Remeron(Mirtazapine) 30 MG Tablet 1.5 tablet at bedtime Orally Once a day Test Strips - - Test sugar Once daily Dx: E11.9Topamax(Topiramate) 100 MG Tablet 1 tablet Orally BID traMADol HCl 50 MG Tablet 1 tablet as needed Orally qid As needed, Notes to Pharmacist: PRNtraZODone HCl 100 MG Tablet 1 tablet Orally bedtime Taking Allieebnsc-MBYF-Jnlslony 50-325-40 MG Tablet TAKE 1 TABLET BY MOUTH EVERY 4 HOURS NEEDED FOR HEADACHE , Notes to Pharmacist: PRNTaking Compazine 10 MG Tablet 1 tablet as needed Orally Three times a day Taking fentaNYL 25 MCG/HR Patch 72 Hour 1 patch to skin Transdermal Q3d Taking Ferrous Sulfate 325 (65 Fe) MG Tablet 1 tablet Orally weekly Taking FreeStyle Hunter 3 [place] Use to monitor glucose levels multiple times daily DX Diabetes with hypoglycemic episodes Taking FreeStyle Hunter 3 Sensor Use to monitor glucose multiple times daily DX Diabetes with hypoglycemia episodes- change once every 10 days Taking HYDROcodone-Acetaminophen 5-325 MG Tablet 1 - 2 tablet as needed - max 6/day Orally every 6 hrs K56.600, Notes to Pharmacist: K56.600Taking Hydrocortisone 10 MG Tablet 1 tablet with food or milk Orally once a day , Notes to Pharmacist: PRN- InjectionTaking hydrOXYzine HCl 50 MG Tablet 1 tablet Orally Once a day at bedtime Taking Lancets 30G - Miscellaneous Use 1 lancet E11.9 once daily Taking Levothyroxine Sodium 75 MCG Tablet 1 tablet in the morning on an empty stomach Orally Once a day Taking Lexapro(Escitalopram Oxalate) 20 MG Tablet 1 tablet Orally Once a day Taking Liothyronine Sodium 5 MCG Tablet 1 tablet on an empty stomach Orally Once a day Taking Methocarbamol 500 MG Tablet TAKE 1.5 TABLETS BY MOUTH EVERY 6 HRS FOR 30 DAYS Taking Metoclopramide HCl 10 MG Tablet 1 tablet before meals Orally achs Taking Ondansetron 4 MG Tablet Disintegrating 1-2 tablet on the tongue and allow to dissolve Orally q4h As neededTaking OneTouch Ultra 2(Blood Glucose Monitoring Suppl) w/Device Kit USE TO MONITOR BLOOD GLUCOSE LEVELS DAILY Taking Prucalopride Succinate 2 MG Tablet 1 tablet Orally Once a day Taking Remeron(Mirtazapine) 30 MG Tablet 1.5 tablet at bedtime Orally Once a day Taking Test Strips - - Test sugar Once daily Dx: E11.9Taking Topamax(Topiramate) 100 MG Tablet 1 tablet Orally BID Taking traMADol HCl 50 MG Tablet 1 tablet as needed Orally qid As needed, Notes to Pharmacist: PRNTaking traZODone HCl 100 MG Tablet 1 tablet Orally bedtime DiscontinuedAmoxicillin-Pot Clavulanate 875-125 MG Tablet TAKE 1 TABLET BY MOUTH TWICE DAILY FOR 11 DAYS Oral Amoxicillin-Pot Clavulanate 875-125 MG Tablet 1 tablet Orally every 12 hrs Medication List reviewed and reconciled with the patientDiscontinued Amoxicillin-Pot Clavulanate 875-125 MG Tablet TAKE 1 TABLET BY MOUTH TWICE DAILY FOR 11 DAYS Oral Discontinued Amoxicillin-Pot Clavulanate 875-125 MG Tablet 1 tablet Orally every 12 hrs Medication List reviewed and reconciled with the patient * Allergies: C odeine: vomiting - AllergyNSAIDs: Gastric bypass - Contraindicationno[Allergies Verified] Objective: * Vitals: W t:176lbs, Ht: 66 in, BP:130/84mm Hg, BMI:28.4Index, Ht-cm: 167.64 cm, Wt-k.83 kg. * Examination: P hysical Exam: GENERAL: w ell developed, well nourished, in no acute distress. HEAD: n ormocephalic/atraumatic. EYES: p upils equal, round and reactive to light, conjunctivae and sclerae normal. EARS: n o deformity or lesion of external ear, canals and TM appear normal bilaterally, TM's intact, not inflamed with normal light reflex, hearing grossly normal to conversational speech. NOSE: n o deformity, discharge, inflammation, or lesions.? MOUTH: m ucous membranes moist, normal oropharynx and posterior pharynx without lesions or exudates, tongue normal, dentition normal. NECK: n mike supple, no masses or palpable cervical nodes, trachea midline, thyroid without nodules, masses, tenderness, or enlargement. CHEST: n o chest wall deformity, no chest wall tenderness.? LUNGS: n ormal respiratory effort and clear to auscultation, no wheezes, rales, or rhonchi, good air exchange. CARDIO: r egular rate and rhythm, normal S1 and S2, nor murmur, rub, or gallop. PULSES: n ormal capillary refill. ABDOMEN: s oft, non-distended, non-tender, no masses. MUSCULOSKELETAL: n o deformity or scoliosis noted, normal range of motion, joints normal, no erythema, edema, effusion, or ecchymosis. EXTREMITY: n o clubbing, cyanosis, edema, or deformity with normal ROM in both upper and lower bilateral extremities. NEUROLOGIC: g rossly normal. SKIN: n o rashes, ulcerations, or suspicious lesions. LYMPH NODES: n o cervical adenopathy, nodes normal. MENTAL STATUS: a lert and oriented x3, normal mood and affect. Assessment: * Assessment: 1. S epsis - A41.9 (Primary) Plan: * Treatment: ?LAB: Blood Culture 2* From arm * Procedure Codes: * Preventive Medicine: Screenings/Counseling: B IN ACTION PLAN Above Normal BMI Follow-up D ietary management education, guidance, and counseling * * Sign off status: Completed Visit Status: C HK (Check Out) true * Provider: Du Alas ([facility])MD Date: 0 09/11/2024 Generated for Printi ng/Faxing/eTransmitting on: 0 09/15/2024 04:36 PM EDT History and Physical Notes * HPI (History of Present Illness) Category Sub-Category Detail Notes Category Not es General no fever - no chils - doing wel with het cefdinir - except for nausea has zofran at home withteh compizinre Examination Category Sub-Category Detail Notes Category Not es Physical Exam GENERAL: well developed, well nourished, in no acute distress HEAD: normocephalic/atraum atic EYES: pupils equal, round and reactive to light, conjunctivae and sclerae normal EARS: no deformity or lesi on of external ear, canals and TM appear normal bilaterally, TM's intact, not inflamed with normal light reflex, hearing grossly normal to conversational speech NOSE: no deformity, discha rge, inflammation, or lesions MOUTH: mucous membranes barbara st, normal oropharynx and posterior pharynx without lesions or exudates, tongue normal, dentition normal NECK: neck supple, no mass es or palpable cervical nodes, trachea midline, thyroid without nodules, masses, tenderness, or enlargement CHEST: no chest wall deform ity, no chest wall tenderness LUNGS: normal respiratory e ffort and clear to auscultation, no wheezes, rales, or rhonchi, good air exchange CARDIO: regular rate and rhy thm, normal S1 and S2, nor murmur, rub, or gallop PULSES: normal capillary ref ill ABDOMEN: soft, non-distended, non-tender, no masses RECTAL: MUSCULOSKELETAL: no deformity or scol iosis noted, normal range of motion, joints normal, no erythema, edema, effusion, or ecchymosis EXTREMITY: no clubbing, cyanosi s, edema, or deformity with normal ROM in both upper and lower bilateral extremities NEUROLOGIC: grossly normal SKIN: no rashes, ulceratio ns, or suspicious lesions LYMPH NODES: no cervical adenopat hy, nodes normal MENTAL STATUS: alert and oriented x 3, normal mood and affect
--- OUTSIDE RECORDS SUMMARY | 2024-09-11 12:30 | XMS_ITS | Encounter Summary ---
Author Organization [facility] Address [address] [place] [address] Care Team Providers Care Check Clerk Name Role Phone Antelmo Davey MD Unavailable [phone] Deacon Valladares MD Unavailable Shanna June CNP Unavailable [phone] Tj Najera Unavailable [phone] Thomas Alas MD Primary Care Provider [phone] Georgina Barkley MD Unavailable [phone] Source Comments In the event this information is protected by the Federal Confidentiality of Alcohol and Drug AbusePatient Records regulations: The Federal rules restrict any use of the information to criminally investigate or prosecute any alcohol or drug abuse patient.[facility] Encounter Details Date Type Department Care Team (Latest Contact Info) Description 09/11/2024 12:30 PM EDT Infusion Center Hematology/Oncology [address] [place] [address] [place] [address] On total parenteral nutrition (TPN); At risk for fluid and electrolyte imbalance; Anemia, unspecified type Social History Tobacco Use Types Packs/Day Years Used Date Smoking Tobacco: Never Smokeless Tobacco: Never Alcohol Use Standard Drinks/Week Comments Not Currently 0 (1 standard drink = 0.6 oz pur e alcohol) [facility] Utilities Answer Date Recorded In the past 12 months has e electric, gas, oil, or water company threatened to shut off services in your home? No 04/12/2024 Social Connection and Isolat ion Panel [NHANES] Answer Date Recorded In a typical week, how many times do you talk on the phone with family, friends, or neighbors? More than three times a week 10/28/2022 How often do you get togethe r with friends or relatives? Once a week 10/28/2022 How often do you attend chur ch or restoration services? 1 to 4 times per year 10/28/2022 Do you belong to any clubs o r organizations such as adventist groups, unions, fraternal or athletic groups, or school groups? Yes 10/28/2022 How often do you attend meet ings of the clubs or organizations you belong to? More than 4 times per year 10/28/2022 Are you , , di vorced, , never , or living with a partner? 10/28/2022 AUDIT-C Answer Date Recorded Q1: How often do you have a drink containing alcohol? Never 10/28/2022 Q2: How many drinks containi ng alcohol do you have on a typical day when you are drinking? Patient does not drink Q3: How often do you have si x or more drinks on one occasion? Never 10/28/2022 Overall Financial Resource Strain (CARDIA) Answe r Date Recorded How hard is it for you to pa y for the very basics like food, housing, medical care, and heating? Hard 12/06/2022 PHQ-2 Answer Date Recorded PHQ-2 score 2 08/21/2024 [facility] Milo of Occupat ional Health - Occupational Stress Questionnaire Answer Date Recorded Do you feel stress - tense, restless, nervous, or anxious, or unable to sleep at night because your mind is troubled all the time - these days? To some extent 10/28/2022 Exercise Vital Sign Answer Date Recorde d On average, how many days pe r week do you engage in moderate to strenuous exercise (like a brisk walk)? 4 days 10/28/2022 On average, how many minutes do you engage in exercise at this level? 30 min 10/28/2022 Hunger Vital Sign Answer Date Recorded Within the past 12 months, y ou worried that your food would run out before you got the money to buy more. Never true 04/12/19 25 Within the past 12 months, t he food you bought just didn't last and you didn't have money to get more. Never true 04/12/2024 PRAPARE - Transportation Answer Date Re corded In the past 12 months, has l ack of transportation kept you from medical appointments or from getting medications? No 03/19 In the past 12 months, has l ack of transportation kept you from meetings, work, or from getting things needed for daily living? No 04/12/2024 Housing Stability Vital Sign Answer Eugenio e Recorded In the last 12 months, was t here a time when you were not able to pay the mortgage or rent on time? No 08/08/2023 In the last 12 months, how many places have you lived? 1 08/08/2023 In the last 12 months, was t here a time when you did not have a steady place to sleep or slept in a jail (including now)? No 08/08/2023 Housing Stability Vital Sign Answer Eugenio e Recorded In the last 12 months, was t here a time when you were not able to pay the mortgage or rent on time? No 04/12/2024 Number of Times Moved in the Last Year Not on fi le 04/12/2024 At any time in the past [address] [facility], were you homeless or living in a jail (including now)? No 04/12/2024 Area Deprivation Index Answer Date Nayan rded National Score (1-100), lower number is lower ri sk 64 06/17/2022 State Score (1-10), lower number is lower risk 4 06/17/2022 Data from: https://www.neighborhoodatlas.medicine.[facility].edu/. Last address used for calculation [address] 06/17/2022 Education Answer Date Recorded What is the highest level of school you have completed or the highest degree you have received? 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 Answer Date of Assessment Author No 04/13/2024 2:05 PM Sandra Cordoba RN * Are you blind or do you have serious difficulty seeing, even when wearing glasses? Answer Date of Assessment Author No 04/13/2024 2:05 PM Sandra Cordoba RN * Do you have serious difficulty walking or climbing stairs? Answer Date of Assessment Author No 04/13/2024 2:05 PM Sandra Cordoba RN * Do you have difficulty dressing or bathing? Answer Date of Assessment Author No 04/13/2024 2:05 PM Sandra Cordoba RN * Because of a physical, mental, or emotional condition, do you have difficulty doing errands alone such as visiting a doctor's office or shopping? Answer Date of Assessment Author No 04/13/2024 2:05 PM Sandra Cordoba RN documented as of this encounter Mental Status * Because of a physical, mental, or emotional condition, do you have serious difficulty concentrating, remembering, or making decisions? Answer Entry Date Author No 04/13/2024 2:05 PM Sandra Cordoba RN documented in this encounter Plan of Treatment Upcoming Encounters Date Type Department Care Team (Latest Contact Info) Description 09/18/2024 12:30 PM EDT Infusion Center Hematology/Oncology [address] [place] [address] [place] [address] Hodges dressing and cap change;Labs as needed per patient 09/22/2024 12:30 PM EDT Office Visit Gastroenterology [address] [id number] General House Worker, Hpn [address] [place] [address] HPN / PAGE [id number] 09/22/2024 1:00 PM EDT Office Visit Gastroenterology [address] [phone] Georgina Barkley MD [facility] [address] [place], [place] [id number] HPN / PAGE [id number] 09/25/2024 9:00 AM EDT Infusion Center Hematology/Oncology [address] [place] [address] [place] [address] Hodges dressing and cap change;Labs as needed per patient 09/29/2024 10:15 AM EDT Appointment [facility] Endoscopy - ENDO [address] [place] [address] [place] [address] [place] [address] EGD 10/02/2024 9:00 AM EDT Infusion Center Hematology/Oncology [address] [place] [address] [place] [address] Hodges dressing and cap change;Labs as needed per patient 10/09/2024 9:00 AM EDT Infusion Center Hematology/Oncology [address] [place] [address] [place] [address] Hodges dressing and cap change;Labs as needed per patient documented as of this encounter Goals Goal Patient Goal Type Associated Problems Recent Progress Patient-Stated? Author Blood Pressure < 140/90 Blood Pressure 112/76( 025 8:48 AM EDT) No Hannah Devlin MD documented as of this encounter Procedures Procedure Name Priority Date/Time Associated Diagnosis Comments MAGNESIUM BLD Routine 09/11/2024 12:44 PM EDT On total parenteral nutrition (TPN) At risk for fluid and electrolyte imbalance PHOSPHORUS INORGANIC Routine 09/11/2024 12:44 PM EDT On total parenteral nutrition (TPN) At risk for fluid and electrolyte imbalance COMPREHENSIVE METABOLIC PANEL Routine 09/11/2024 12:44 PM EDT On total parenteral nutrition (TPN) At risk for fluid and electrolyte imbalance COMPLETE BLOOD COUNT Routine 09/11/2024 12:44 PM EDT On total parenteral nutrition (TPN) Anemia, unspecified type documented in this encounter Results * PHOSPHORUS INORGANIC (09/11/2024 12:44 PM EDT) Phosphorus 4.2 2.7 - 4.8 mg/dL 09/11/2024 1:15 PM EDT [facility] Blood BLOOD SPECIMEN / Unknown Central Line / Unknown 09/11/2024 12:44 PM EDT 09/11/2024 12:45 PM EDT Georgina Barkley MD LABORATORY Final Result [facility] [address] [place] [address] * (ABNORMAL) MAGNESIUM (09/11/2024 12:44 PM EDT) Pathologist [facility] Magnesium 1.6(L) 1.7 - 2.3 mg/dL 09/11/2024 1:15 PM EDT [facility] Blood BLOOD SPECIMEN / Unknown Central Line / Unknown 09/11/2024 12:44 PM EDT 09/11/2024 12:45 PM EDT Georgina Barkley MD LABORATORY Final Result Performing Organization Address City/[facility]/ZIP Co de Phone Number [facility] [address] [place] [address] * COMPLETE BLOOD COUNT (09/11/2024 12:44 PM EDT) Pathologist [facility] WBC 8.76 3.70 - 11.00 k/uL 09/11/2024 12:47 PM EDT [facility] RBC 4.16 3.90 - 5.20 m/uL 09/11/2024 12:47 PM EDT [facility] Hemoglobin 12.5 11.5 - 15.5 g/dL 09/11/2024 12:47 PM EDT [facility] Hematocrit 37.0 36.0 - 46.0 % 09/11/2024 12:47 PM EDT [facility] MCV 88.9 80.0 - 100.0 fL 09/11/2024 12:47 PM EDT [facility] MCH 30.0 26.0 - 34.0 pg 09/11/2024 12:47 PM EDT [facility] MCHC 33.8 30.5 - 36.0 g/dL 09/11/2024 12:47 PM EDT [facility] RDW-CV 14.1 11.5 - 15.0 % 09/11/2024 12:47 PM EDT [facility] Platelet Count 361 150 - 400 k/uL 09/11/2024 12:47 PM EDT [facility] MPV 10.2 9.0 - 12.7 fL 09/11/2024 12:47 PM EDT [facility] Absolute nRBC <0.01 <0.01 k/uL 09/11/2024 12:47 PM EDT [facility] Blood BLOOD SPECIMEN / Unknown Central Line / Unknown 09/11/2024 12:44 PM EDT 09/11/2024 12:45 PM EDT us Georgina Barkley MD LABORATORY Final Result [facility] [address] [place] [address] * (ABNORMAL) COMPREHENSIVE METABOLIC PANEL (09/11/2024 12:44 PM EDT) Protein, Total 5.9(L) 6.3 - 8.0 g/dL 09/11/2024 1:16 PM EDT [facility] Albumin 3.5(L) 3.9 - 4.9 g/dL 09/11/2024 1:16 PM EDT [facility] Calcium, Total 8.3(L) 8.5 - 10.2 mg/dL 09/11/2024 1:16 PM EDT [facility] Bilirubin, Total 0.2 0.2 - 1.3 mg/dL 09/11/2024 1:16 PM EDT [facility] Alkaline Phosphatase 106 34 - 123 U/L 09/11/2024 1:16 PM EDT [facility] AST 17 13 - 35 U/L 09/11/2024 1:16 PM EDT [facility] ALT 9 7 - 38 U/L 09/11/2024 1:16 PM EDT [facility] Glucose 150(H) 74 - 99 mg/dL 09/11/2024 1:16 PM T [facility] Comment: The [place] Diabetes Association (ADA) provides guidance for cutoff [...] Standards of Medical Care in Diabetes 2016, [place] [employer]. Diabetes Care. 2016.39(Suppl 1). BUN 7 7 - 21 mg/dL 09/11/2024 1:16 PM T [facility] Creatinine 0.63 0.58 - 0.96 mg/dL 09/11/2024 1:16 PM EDT [facility] Sodium 135(L) 136 - 144 mmol/L 09/11/2024 1:16 PM EDT [facility] Potassium 3.2(L) 3.7 - 5.1 mmol/L 09/11/2024 1:16 PM T [facility] Chloride 104 98 - 107 mmol/L 09/11/2024 1:16 PM EDT [facility] CO2 21(L) 22 - 30 mmol/L 09/11/2024 1:16 PM EDT [facility] Anion Gap 10 8 - 15 mmol/L 09/11/2024 1:16 PM EDT [facility] Estimated Glomerular Filtration Rate 119 >=60 mL/min/1. 73m 09/11/2024 1:16 PM EDT [facility] Comment:Estimated Glomerular Filtration Rate (eGFR) is calculated using the 2020 CKD-EPI creatinine equation. This equation utilizes serum creatinine, sex, and age as parameters. The creatinine assay has traceable calibration to isotope dilution- mass spectrometry. Refer to KDIGO guidelines for clinical interpretation. In patients with unstable renal function, e.g. those with acute kidney injury, the eGFR may not accurately reflect actual GFR. Blood BLOOD SPECIMEN / Unknown Central Line / Unknown 09/11/2024 12:44 PM EDT 09/11/2024 12:45 PM EDT Georgina Barkley MD LABORATORY Final Result [facility] [address] [place] [address] documented in this encounter Visit Diagnoses Diagnosis On total parenteral nutrition (TPN) Other specified conditions influencing health status At risk for fluid and electrolyte imbalance Anemia, unspecified type documented in this encounter Care Teams Check Clerk Relationship Specialty Start Date End Date Thomas Alas MD [address] [place] [address] PCP - General Family Medicine 07/30/23 Antelmo Davey MD [address] [place] [address] 09/25/19 [place] [address] [place] [address] Consulting General Surgery 09/25/19 Shanna June CNP [address] [place] [address] Referring Family Medicine 10/19/19 Tj Najera PA [address] [facility] [place] [address] Referring Family Medicine 05/13/22 Georgina Barkley MD [address] [place] [address] Home Parenteral Nutrition Provider Gastroenterology 10/14/23 documented as of this encounter
--- OUTSIDE RECORDS SUMMARY | 2024-09-14 06:46 | XMS_ITS ---
Author Organization [facility] [place] Address [address] [place] [address] Care Team Providers Care Vending Machine Assembler Name Role Phone Brandyn Alas Primary Care Provider [phone] REASON FOR VISIT yeast infection Medications Medication SIG (Take, Route, Fr equency, Duration) Notes Start Date End Date Status Diflucan 100 MG 1 tablet Orally daily for 10 days 09/14/2024 Active Encounters Encounter Location Date Provider Diagnosis [facility] [address] [place] [address] 09/14/2024 Brandyn Alas Plan Of Treatment Medication Medication Name Sig Start Date Stop Date Notes Diflucan 100 MG 1 tablet Orally daily for 10 days 09/15/19 25 Progress Notes * Abbey KONG MDOB:1990 (34 yo F)Acc No.[id number]:09/14/2024 Patient: Jarrod AlejandroAbbey Salomon :1990 A ge:34 Y S ex:Female Address:[address] [place] [address] , [place], [address] * Refills Start Diflucan Tablet, 100 MG, Orally, 10 Tablet, 1 tablet, daily, 10 days, Refills=1 * true * Date: Generated for Printi ng/Faxing/eTransmitting on: 0 09/15/2024 04:35 PM EDT
[2024-09-15] VITALS (10 sets, daily range): BP systolic 128–136; BP diastolic 86–88; PULSE 83–103; TEMP 36.8; O2SAT 99–100; BMI 28.7
--- OUTSIDE RECORDS SUMMARY | 2024-09-15 06:25 | XMS_ITS ---
Author Organization [facility] [place] Address [address] [place] [address] Care Team Providers Care Armature Bander Name Role Phone Brandyn Alas Primary Care Provider REASON FOR VISIT refill Medications Medication SIG (Take, Route, Frequency, Duration) Notes Start Date End Date Status HYDROcodone-Acetaminophen 5-325 MG 1 - 2 tablet as needed - max 6/day Orally every 6 hrs for 14 days K56.600 K56.600 09/15/2024 Active Encounters Encounter Location Date Provider Diagnosis [address] [address] 09/15/2024 Brandyn Alas GERD (gastroesophag eal reflux disease) K21.9 Assessments Encounter Date Diagnosis (ICD Code) Assessment Notes Treatment Notes Treatment Clinical Notes Section Notes 09/15/2024 GERD (gastroesophage al reflux disease) (ICD-10 - K21.9) Plan Of Treatment Medication Medication Name Sig Start Date Stop Date Notes HYDROcodone-Acetaminophen 5-325 MG 1 - 2 tablet as needed - max 6/day Orally every 6 hrs for 14 days 09/15/2024 K56.600 Progress Notes * Abbey KONG MDOB:1990 (34 yo F)Acc No.[id number]:09/15/2024 Patient: Jarrod AlejandroAbbey Salomon :1990 A ge:34 Y S ex:Female Address:[address] [place] [address] , [place], [address] * Refills Refill HYDROcodone-Acetaminophen Tablet, 5-325 MG, Orally, 84, 1 - 2 tablet as needed - max 6/day, every 6 hrs, 14 days, Refills=0 * true * Date: Generated for Hailey jordan/Ari/Kateitting on: 0 09/15/2024 04:39 PM EDT
--- OUTSIDE RECORDS SUMMARY | 2024-09-15 16:35 | XMS_ITS | Encounter Summary ---
Author Organization [facility] Address [address] [place] [address] Care Team Providers Care Plastic Top Assembler Name Role Phone Antelmo Davey MD Unavailable [phone] Deacon Valladares MD Unavailable [phone] Shanna June CNP Unavailable [phone] Shanna June CNP Primary Care Provider [phone] Rachel Foley MD Primary Care Provider [phone] Tj Najera Unavailable [phone] Anna Mendez APRN.[facility] Primary Care Provider Thomas Alas MD Primary Care Provider +[phone] Georgina Barkley MD Unavailable [phone] Source Comments In the event this information is protected by the Federal Confidentiality of Alcohol and Drug AbusePatient Records regulations: The Federal rules restrict any use of the information to criminally investigate or prosecute any alcohol or drug abuse patient.[facility] Encounter Details Date Type Department Care Team (Late st Contact Info) Description 10/21/2021 Patient Msg Orth and Rhe[facility] [place] [address] [place] [address] Provider, [facility] Appointment Reschedule Needed ~ 9.7.22 Social History Tobacco Use Types Packs/Day Years Used Date Smoking Tobacco: Never Smokeless Tobacco: Never Alcohol Use Standard Drinks/Week Comments Not Currently 0 (1 standard drink = 0.6 oz pur e alcohol) Overall Financial Resource Strain (CARDIA) Answe r Date Recorded How hard is it for you to pa y for the very basics like food, housing, medical care, and heating? Not hard at all 10/15/2019 PHQ-2 Answer Date Recorded PHQ-2 score 2 09/09/2021 Hunger Vital Sign Answer Date Recorded Within the past 12 months, y ou worried that your food would run out before you got the money to buy more. Never true 10/15/19 20 Within the past 12 months, t he food you bought just didn't last and you didn't have money to get more. Never true 10/15/2019 PRAPARE - Transportation Answer Date Re corded In the past 12 months, has l ack of transportation kept you from medical appointments or from getting medications? No 09/17 In the past 12 months, has l ack of transportation kept you from meetings, work, or from getting things needed for daily living? No 10/15/2019 Area Deprivation Index Answer Date Nayan rded National Score (1-100), lower number is lower ri sk 58 07/04/2021 State Score (1-10), lower number is lower risk N ot on file 07/04/2021 Data from: https://www.neighborhoodatlas.medicine.[facility].edu/. Last address used for calculation [id number] 07/04/2021 Education Answer Date Recorded What is the highest level of school you have completed or the highest degree you have received? 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 Unable to assess 10/14/2021 10:05 AM EDT documented as of this encounter Functional Status * Are you deaf or do you have serious difficulty hearing? Answer Date of Assessment Author No 12/25/2020 6:09 PM Ofelia Connor RN * Are you blind or do you have serious difficulty seeing, even when wearing glasses? Answer Date of Assessment Author No 12/25/2020 6:09 PM Ofelia Connor RN * Do you have serious difficulty walking or climbing stairs? Answer Date of Assessment Author No 12/25/2020 6:09 PM Ofelia Connor RN * Do you have difficulty dressing or bathing? Answer Date of Assessment Author No 12/25/2020 6:09 PM Ofelia Connor RN * Because of a physical, mental, or emotional condition, do you have difficulty doing errands alone such as visiting a doctor's office or shopping? Answer Date of Assessment Author No 12/25/2020 6:09 PM Ofelia Connor RN documented as of this encounter Mental Status * Because of a physical, mental, or emotional condition, do you have serious difficulty concentrating, remembering, or making decisions? Answer Entry Date Author No 12/25/2020 6:09 PM Ofelia Connor RN documented in this encounter Plan of Treatment Upcoming Encounters Date Type Department Care Team (Latest Contact Info) Description 09/18/2024 12:30 PM EDT [facility] Center Hematology/Oncology [address] [place] [address] [place] [address] Carroll dressing and cap change;Labs as needed per patient 09/22/2024 12:30 PM EDT Office Visit Gastroenterology [address] [id number] Data Review Specialist, Grupo [address] [place] [address] HPSnachez / PAGE [id number] 09/22/2024 1:00 PM EDT Office Visit Gastroenterology [address] [phone] Georgina Barkley MD [address] [id number] HPN / PAGE [id number] 09/25/2024 9:00 AM EDT Infusion Center Hematology/Oncology [address] [place] [address] [place] [address] Hodges dressing and cap change;Labs as needed per patient 09/29/2024 10:15 AM EDT Appointment [facility] Endoscopy - ENDO [address] [place] [address] [place] [address] [place] [address] EGD 10/02/2024 9:00 AM EDT Infusion Center Hematology/Oncology [address] [place] [address] [place] [address] Hodges dressing and cap change;Labs as needed per patient 10/09/2024 9:00 AM EDT Infusion Center Hematology/Oncology [address] [place] [address] [place] [address] Hodges dressing and cap change;Labs as needed per patient documented as of this encounter Visit Diagnoses Not on filedocumented in this encounter Additional Health Concerns Infection Onset Date Last Indicated Resolved Time COVID-19 Rule-Out 01/29/2022 01/29/2022 01/29/2022 6:59 PM EST COVID-19 Rule-Out 06/06/2023 06/06/2023 06/06/2023 6:19 PM EDT documented as of this encounter Care Teams Plastic Top Assembler Relationship Specialty Start Date End Date Shanna June CNP [address] [place] [address] PCP - General Family Medicine 01/31/20 01/18/22 Rachel Foley MD [address] [facility] [address] PCP - General Family Medicine 01/19/22 06/15/22 Anna Mendez APRN.CITY ALDERMAN [address] [facility] [address] [place] [address] PCP - General 06/16/22 07/29/23 Thomas Alas MD [address] [facility] [place] [address] PCP - General Family Medicine 07/30/23 Antelmo Davey MD [address] [facility] [place] [address] 09/25/19 [place] [address] [place] [address] Consulting General Surgery 09/25/19 Shanna June CNP [address] [place] [address] Referring Family Medicine 10/19/19 Tj Najera PA [address] [address] Referring Family Medicine 05/13/22 Georgina Barkley MD [address] [place] [address] Home Parenteral Nutrition Provider Gastroenterology 10/14/23 documented as of this encounter
--- OUTSIDE RECORDS SUMMARY | 2024-09-15 16:35 | XMS_ITS | Encounter Summary ---
Author Organization [facility] Address [address] [place] [address] Care Team Providers Care Clearing Tub Worker Name Role Phone Antelmo Davey MD Unavailable [phone] Deacon Valladares MD Unavailable Shanna June CNP Unavailable +[phone] Shanna June CNP Primary Care Provider [phone] Rachel [place] MD Primary Care Provider [phone] Tj Najera Unavailable [phone] Anna Mendez APRN.[facility] Primary Care Provider Thomas Alas MD Primary Care Provider +-4 Georgina Barkley MD Unavailable [phone] Source Comments In the event this information is protected by the Federal Confidentiality of Alcohol and Drug AbusePatient Records regulations: The Federal rules restrict any use of the information to criminally investigate or prosecute any alcohol or drug abuse patient.[facility] Encounter Details Date Type Department Care Team (Late st Contact Info) Description 08/28/2021 Patient Msg General Surgery [address] [id number] Provider, Ccf Nutrition Summary Social History Tobacco Use Types Packs/Day Years [...] PHQ-2 Answer Date Recorded PHQ-2 score 2 07/03/2021 Hunger Vital Sign Answer Date Recorded Within [...] N ot on file 07/04/2021 Data from: https://www.neighborhoodatlas.medicine.[facility].edu/. Last address used for calculation [address] 07/04/2021 Education Answer Date Recorded What is the highest level of school you have completed or the highest degree you have received? Master's degree (e.g., MA, MS, Birgit, MEd, AGRICULTURAL CROP FARM MANAGER, IVANIA) 10/15/2019 Comments No Sex and Gender [...] was confirmed or suspected to have Coronavirus/COVID-19? No / Unsure 07/31/2021 4:24 PM EDT documented as of this encounter [...] Contact Info) Description 09/18/2024 12:30 PM EDT [facility] Hematology/Oncology [address] [place] [address] [place] [address] Hodges dressing and cap change;Labs as needed per patient 09/22/2024 12:30 PM EDT Office Visit Gastroenterology [address] [id number] Cad Designer Drafter, Grupo [address] [place], [place] [id number] HPN / PAGE [id number] 09/22/2024 1:00 PM EDT Office Visit Gastroenterology [address] [id number] Georgina Barkley MD [facility] [address] [address] HPN / PAGE [id number] 09/25/2024 9:00 AM EDT Infusion Center Hematology/Oncology [address] [place] [address] [place] [address] Hodges dressing and cap change;Labs as needed per patient 09/29/2024 10:15 AM EDT Appointment Endoscopy - ENDO [address] [place] [address] [place] [address] [id number] EGD 10/02/2024 9:00 AM EDT Infusion Center Hematology/Oncology [address] [place] [address] [place] [address] Hodges dressing and cap change;Labs as needed per patient 10/09/2024 9:00 AM EDT Infusion Center Hematology/Oncology [address] [place] [address] [place] [address] Hodges dressing and cap change;Labs as needed per patient documented as of this encounter Visit Diagnoses Not on filedocumented in this encounter Additional Health Concerns Infection Onset Date Last Indicated Resolved Time COVID-19 Rule-Out 01/29/2022 01/29/2022 01/29/2022 6:59 PM EST COVID-19 Rule-Out 06/06/2023 06/06/2023 06/06/2023 6:19 PM EDT documented as of this encounter Care Teams Clearing Tub Worker Relationship Specialty Start Date End Date Shanna June CNP [address] [place] [address] PCP - General Family Medicine 01/31/20 01/18/22 Rachel [place] MD [address] [facility] [place] [address] PCP - General Family Medicine 01/19/22 06/15/22 Anna Mendez APRN.DAIRY FROZEN MANAGER [address] [address] PCP - General 06/16/22 07/29/23 Thomas Alas MD [address] [facility] [place] [address] PCP - General Family Medicine 07/30/23 Antelmo Davey MD [address] [facility] [place] [address] 09/25/19 [place] [address] [place] [address] Consulting General Surgery 09/25/19 Shanna June CNP [address] [place] [address] Referring Family Medicine 10/19/19 Tj Najera PA [address] [place] [address] Referring Family Medicine 05/13/22 Georgina Barkley MD [address] [place] [address] Home Parenteral Nutrition Provider Gastroenterology 10/14/23 documented as of this encounter
--- OUTSIDE RECORDS SUMMARY | 2024-09-15 16:35 | XMS_ITS | Encounter Summary ---
Author Organization [facility] Address [address] [place] [address] Care Team Providers Care Wall Insulation Sprayer Name Role Phone Antelmo Davey MD Unavailable Deacon Valladares MD Unavailable Shanna June CNP Unavailable [phone] Shanna June CNP Primary Care Provider [phone] Rachel [place] MD Primary Care Provider [phone] Tj Najera Unavailable [phone] Anna Mendez APRN.[facility] Primary Care Provider Thomas Alas MD Primary Care Provider +-4 Georgina Barkley MD Unavailable [phone] Source Comments In the event this information is protected by the Federal Confidentiality of Alcohol and Drug AbusePatient Records regulations: The Federal rules restrict any use of the information to criminally investigate or prosecute any alcohol or drug abuse patient.[facility] Encounter Details Date Type Department Care Team (Late st Contact Info) Description 11/30/2021 Patient Msg Gastroenterology [address] [address] Chichi Miller MD [address] [place] [address] Appointment Cancellation Request Social History Tobacco Use Types Packs/Day Years [...] N ot on file 07/04/2021 Data from: https://www.neighborhoodatlas.medicine.[facility].edu/. Last address used for calculation [address] 07/04/2021 Education Answer Date Recorded What is the highest level of school you have completed or the highest degree you have received? Master's degree (e.g., MA, MS, Birgit, MEd, RAILWAY SWITCH OPERATOR, IVANIA) 10/15/2019 Comments No Sex and Gender [...] Contact Info) Description 09/18/2024 12:30 PM EDT [facility] Hematology/Oncology [address] [place] [address] [place] [address] Carroll dressing and cap change;Labs as needed per patient 09/22/2024 12:30 PM EDT Office Visit Gastroenterology [address] [phone] Tail Board Worker, Grupo [address] [place] [address] HPSanchez / PAGE [id number] 09/22/2024 1:00 PM EDT Office Visit Gastroenterology [address] [phone] Georgina Bark[place] MD [facility] [address] [id number] HPN / PAGE [id number] 09/25/2024 9:00 AM EDT Infusion Center Hematology/Oncology [address] [place] [address] [place] [address] Hodges dressing and cap change;Labs as needed per patient 09/29/2024 10:15 AM EDT Appointment [facility] Endoscopy - ENDO [address] [place] [address] [place] [address] [address] [id number] EGD 10/02/2024 9:00 AM EDT Infusion Center Hematology/Oncology [address] [place] [address] [place] [address] Hodges dressing and cap change;Labs as needed per patient 10/09/2024 9:00 AM EDT Infusion Center Hematology/Oncology [address] [place] [address] [place] [address] Hodges dressing and cap change;Labs as needed per patient documented as of this encounter Visit Diagnoses Not on filedocumented in this encounter Additional Health Concerns Infection Onset Date Last Indicated Resolved Time COVID-19 Rule-Out 01/29/2022 01/29/2022 01/29/2022 6:59 PM EST COVID-19 Rule-Out 06/06/2023 06/06/2023 06/06/2023 6:19 PM EDT documented as of this encounter Care Teams Wall Insulation Sprayer Relationship Specialty Start Date End Date Shanna June CNP [address] [place] [address] PCP - General Family Medicine 01/31/20 01/18/22 Rachel [place] MD [address] [place] [facility] [place] [address] PCP - General Family Medicine 01/19/22 06/15/22 Anna Mendez APRN.BLOOD AND PLASMA LABORATORY ASSISTANT [address] [facility] [address] [place] [address] PCP - General 06/16/22 07/29/23 Thomas Alas MD [address] [place] [address] PCP - General Family Medicine 07/30/23 Antelmo Davey MD [address] [place] [address] 09/25/19 [place] [address] [place] [address] Consulting General Surgery 09/25/19 Shanna June, BETH [address] [place] [address] Referring Family Medicine 10/19/19 jT Najera PA [address] [address] Referring Family Medicine 05/13/22 Georgina Barkley MD [address] [place] [address] Home Parenteral Nutrition Provider Gastroenterology 10/14/23 documented as of this encounter
--- OUTSIDE RECORDS SUMMARY | 2024-09-15 16:35 | XMS_ITS | Encounter Summary ---
Author Organization [facility] Address [address] [place] [address] Care Team Providers Care Fence Making Machine Operator Name Role Phone Antelmo Davey MD Unavailable Deacon Valladares MD Unavailable [phone] Shanna June CNP Unavailable [phone] Shanna June CNP Primary Care Provider [phone] Rachel [place] MD Primary Care Provider [phone] Tj Najera Unavailable [phone] Anna Mendez APRN.[facility] Primary Care Provider Thomas Alas MD Primary Care Provider +-4 Georgina Barkley MD Unavailable [phone] Source Comments In the event this information is protected by the Federal Confidentiality of Alcohol and Drug AbusePatient Records regulations: The Federal rules restrict any use of the information to criminally investigate or prosecute any alcohol or drug abuse patient.[facility] Encounter Details Date Type Department Care Team (Late st Contact Info) Description 11/17/2021 Get Medical Advice General Surgery 9300 [place] [address] Sabina Jacobo, PROPERTY ADJUSTER.FURNITURE UPHOLSTERER 9500 [place], [place] [phone] Weight Social History Tobacco Use Types Packs/Day Years [...] N ot on file 07/04/2021 Data from: https://www.neighborhoodatlas.medicine.[facility].edu/. Last address used for calculation [address] 07/04/2021 Education Answer Date Recorded What is the highest level of school you have completed or the highest degree you have received? Master's degree (e.g., MA, MS, Birgit, MEd, MIMEOGRAPHER, IVANIA) 10/15/2019 Comments No Sex and Gender [...] 09/18/2024 12:30 PM EDT Infusion Center Hematology/Oncology [address] [place] [address] [place] [address] Hodges dressing and cap change;Labs as needed per patient 09/22/2024 12:30 PM EDT Office Visit Gastroenterology [address] [phone] Marine Architect, Grupo [address] [place] [address] GRUPO / PAGE [id number] 09/22/2024 1:00 PM EDT Office Visit Gastroenterology [address] [phone] Georgina [place] MD [facility] [address] [id number] HPN / PAGE [id number] 09/25/2024 9:00 AM EDT Infusion Center Hematology/Oncology [address] [place] [address] [place] [address] Hodges dressing and cap change;Labs as needed per patient 09/29/2024 10:15 AM EDT Appointment [facility] Endoscopy - ENDO [address] [place] [address] [place] [address] [place] [address] EGD 10/02/2024 9:00 AM EDT Infusion Center Hematology/Oncology [address] [place] [address] [place] [address] Hodges dressing and cap change;Labs as needed per patient 10/09/2024 9:00 AM EDT Infusion Center Hematology/Oncology [address] [place] [address] [place] [address] Hdoges dressing and cap change;Labs as needed per patient documented as of this encounter Visit Diagnoses Not on filedocumented in this encounter Additional Health Concerns Infection Onset Date Last Indicated Resolved Time COVID-19 Rule-Out 01/29/2022 01/29/2022 01/29/2022 6:59 PM EST COVID-19 Rule-Out 06/06/2023 06/06/2023 06/06/2023 6:19 PM EDT documented as of this encounter Care Teams Fence Making Machine Operator Relationship Specialty Start Date End Date Shanna June CNP [address] [place] [place] [address] PCP - General Family Medicine 01/31/20 01/18/22 Rachel [place] MD [address] [facility] [place] [address] PCP - General Family Medicine 01/19/22 06/15/22 Anna Mendez APRN.FURNITURE UPHOLSTERER [address] [address] PCP - General 06/16/22 07/29/23 Thomas Alas MD [address] [place] [address] PCP - General Family Medicine 07/30/23 Antelmo [place] MD [address] [place] [address] 09/25/19 [place] [address] [place] [address] Consulting General Surgery 09/25/19 Shanna June CNP [address] [place] [address] Referring Family Medicine 10/19/19 Tj Najera PA [address] [address] Referring Family Medicine 05/13/22 Georgina Bark[place] MD [address] [place] [address] Home Parenteral Nutrition Provider Gastroenterology 10/14/23 documented as of this encounter
--- OUTSIDE RECORDS SUMMARY | 2024-09-15 16:35 | XMS_ITS | Encounter Summary ---
Author Organization [facility] Address [address] [place] [address] Care Team Providers Care Account Supervisor Name Role Phone Antelmo Davey MD Unavailable Deacon Valladares MD Unavailable [phone] Shanna June CNP Unavailable [phone] Shanna June CNP Primary Care Provider [phone] Rachel [place] MD Primary Care Provider [phone] Tj Najera Unavailable [phone] Anna Mendez APRN.[facility] Primary Care Provider Thomas Alas MD Primary Care Provider +-4 Georgina Barkley MD Unavailable [phone] Source Comments In the event this information is protected by the Federal Confidentiality of Alcohol and Drug AbusePatient Records regulations: The Federal rules restrict any use of the information to criminally investigate or prosecute any alcohol or drug abuse patient.[facility] Encounter Details Date Type Department Care Team (Late st Contact Info) Description 09/05/2021 Patient Msg Orthopaedics [address] [address] Josue Tompkins, LISAC [address] [place] [address] Appointment Cancellation Request Social History Tobacco Use [...] N ot on file 07/04/2021 Data from: https://www.neighborhoodatlas.medicine.[facility].edu/. Last address used for calculation [address] 07/04/2021 Education Answer Date Recorded What is the highest level of school you have completed or the highest degree you have received? Master's degree (e.g., MA, MS, Birgit, MEd, SETTER AUTOMATIC SPINNING LATHE, IVANIA) 10/15/2019 Comments No Sex and Gender [...] suspected to have Coronavirus/COVID-19? No / Unsure 09/01/2021 4:19 PM EDT documented as of this encounter [...] 12:30 PM EDT Infusion Center Hematology/Oncology [address] [place] [address] [place] [address] Carroll dressing and cap change;Labs as needed per patient 09/22/2024 12:30 PM EDT Office Visit Gastroenterology [address] [address] Leakage Tester, Hpn [address] [place] [address] HPN / PAGE [id number] 09/22/2024 1:00 PM EDT Office Visit Gastroenterology [address] [phone] Georgina Bark[place] MD [facility] [address] [id number] HPN / PAGE [phone] 09/25/2024 9:00 AM EDT Infusion Center Hematology/Oncology [address] [place] [address] [place] [address] Hodges dressing and cap change;Labs as needed per patient 09/29/2024 10:15 AM EDT Appointment [facility] Endoscopy - ENDO [address] [place] [address] [place] [address] [address] [id number] EGD 10/02/2024 9:00 AM EDT Infusion Center Hematology/Oncology [address] [place] [address] [place] [address] Hodges dressing and cap change;Labs as needed per patient 10/09/2024 9:00 AM EDT Infusion Center Hematology/Oncology [address] [place] [address] [place] [address] Hodges dressing and cap change;Labs as needed per patient documented as of this encounter Visit Diagnoses Not on filedocumented in this encounter Additional Health Concerns Infection Onset Date Last Indicated Resolved Time COVID-19 Rule-Out 01/29/2022 01/29/2022 01/29/2022 6:59 PM EST COVID-19 Rule-Out 06/06/2023 06/06/2023 06/06/2023 6:19 PM EDT documented as of this encounter Care Teams Account Supervisor Relationship Specialty Start Date End Date Shanna June CNP [address] [place] [address] PCP - General Family Medicine 01/31/20 01/18/22 Rachel [place] MD [address] [place] [address] PCP - General Family Medicine 01/19/22 06/15/22 Anna Mendez APRN.MOUTHPIECE MAKER [address] [address] PCP - General 06/16/22 07/29/23 Thomas Alas MD [address] [place] [address] PCP - General Family Medicine 07/30/23 Antelmo Davey MD 521 [place] [address] 09/25/19 [place] [address] [place] [address] Consulting General Surgery 09/25/19 Shanna June CNP [address] [place] [address] Referring Family Medicine 10/19/19 Tj Najera PA [address] [address] Referring Family Medicine 05/13/22 Georgina Barkley MD [address] [place] [address] Home Parenteral Nutrition Provider Gastroenterology 10/14/23 documented as of this encounter
--- OUTSIDE RECORDS SUMMARY | 2024-09-15 16:36 | XMS_ITS | Encounter Summary ---
Author Organization [facility] Address [address] [place] [address] Care Team Providers Care Executive Secretary Social Welfare Name Role Phone Antelmo Davey MD Unavailable Deacon Valladares MD Unavailable [phone] Shanna June CNP Unavailable [phone] Shanna June CNP Primary Care Provider [phone] Rachel [place] MD Primary Care Provider [phone] Tj Najera Unavailable [phone] Anna Mendez APRN.[facility] Primary Care Provider Thomas Alas MD Primary Care Provider +-4 Georgina Barkley MD Unavailable [phone] Source Comments In the event this information is protected by the Federal Confidentiality of Alcohol and Drug AbusePatient Records regulations: The Federal rules restrict any use of the information to criminally investigate or prosecute any alcohol or drug abuse patient.[facility] Encounter Details Date Type Department Care Team (Late st Contact Info) Description 07/14/2021 Patient Msg General Surgery [address] [phone] Provider, Ccf Appointment Request Social History Tobacco Use Types Packs/Day [...] N ot on file 07/04/2021 Data from: https://www.neighborhoodatlas.medicine.[facility].edu/. Last address used for calculation [address] 07/04/2021 Education Answer Date Recorded What is the highest level of school you have completed or the highest degree you have received? Master's degree (e.g., MA, MS, Birgit, MEd, EXECUTIVE PASTRY CHEF, IVANIA) 10/15/2019 Comments No Sex and Gender [...] suspected to have Coronavirus/COVID-19? No / Unsure 07/09/2021 11:46 AM EDT documented as of this encounter [...] Contact Info) Description 09/18/2024 12:30 PM EDT [facility] Hematology/Oncology [address] [place] [address] [place] [address] Hodges dressing and cap change;Labs as needed per patient 09/22/2024 12:30 PM EDT Office Visit Gastroenterology [address] [phone] Irb Compliance Coordinator, Grupo [address] [place], [place] [phone] HPN / PAGE [id number] 09/22/2024 1:00 PM EDT Office Visit Gastroenterology [address] [phone] Georgina [place] MD [facility] [address] [address] HPN / PAGE [id number] 09/25/2024 9:00 AM EDT Infusion Center Hematology/Oncology [address] [place] [address] [place] [address] Hodges dressing and cap change;Labs as needed per patient 09/29/2024 10:15 AM EDT Appointment [facility] Endoscopy - ENDO [address] [place] [address] [place] [address] [address] [id number] EGD 10/02/2024 9:00 AM EDT Infusion Center Hematology/Oncology [address] [place] [address] [place] [address] Hodges dressing and cap change;Labs as needed per patient 10/09/2024 9:00 AM EDT Infusion Center Hematology/Oncology [address] [place] [address] [place] [address] Hodges dressing and cap change;Labs as needed per patient documented as of this encounter Visit Diagnoses Not on filedocumented in this encounter Additional Health Concerns Infection Onset Date Last Indicated Resolved Time COVID-19 Rule-Out 01/29/2022 01/29/2022 01/29/2022 6:59 PM EST COVID-19 Rule-Out 06/06/2023 06/06/2023 06/06/2023 6:19 PM EDT documented as of this encounter Care Teams Executive Secretary Social Welfare Relationship Specialty Start Date End Date Shanna June CNP [address] [place] [address] PCP - General Family Medicine 01/31/20 01/18/22 Rachel [place] MD [address] [facility] [place] [address] PCP - General Family Medicine 01/19/22 06/15/22 Anna Mendez APRN.INSULATING MACHINE OPERATOR [address] [address] PCP - General 06/16/22 07/29/23 Thomas Alas MD [address] [facility] [place] [address] PCP - General Family Medicine 07/30/23 Antelmo Davey MD [address] [facility] [place] [address] 09/25/19 [place] [address] [place] [address] Consulting General Surgery 09/25/19 Shanna June CNP [address] [place] [address] Referring Family Medicine 10/19/19 Tj Najera PA [address] [place] [address] Referring Family Medicine 05/13/22 Georgina Bark[place] MD [address] [place] [address] Home Parenteral Nutrition Provider Gastroenterology 10/14/23 documented as of this encounter
--- OUTSIDE RECORDS SUMMARY | 2024-09-15 16:36 | XMS_ITS | Encounter Summary ---
Author Organization [facility] Address [address] [place] [address] Care Team Providers Care Clarifier Operator Name Role Phone Antelmo Davey MD Unavailable Deacon Valladares MD Unavailable [phone] Shanna June CNP Unavailable [phone] Shanna June CNP Primary Care Provider [phone] Rachel Foley MD Primary Care Provider [phone] Tj Najera Unavailable [phone] Anna Mendez APRN.[facility] Primary Care Provider Thomas Alas MD Primary Care Provider +-4 Georgina Barkley MD Unavailable [phone] Source Comments In the event this information is protected by the Federal Confidentiality of Alcohol and Drug AbusePatient Records regulations: The Federal rules restrict any use of the information to criminally investigate or prosecute any alcohol or drug abuse patient.[facility] Encounter Details Date Type Department Care Team (Late st Contact Info) Description 12/18/2021 Patient Msg [facility] [address] [place] [address] Provider, Ccf Instructional video regarding your upcoming EGD Huerta/Huerta Insert Please review upon receipt Thank you Social History Tobacco Use Types Packs/Day Years [...] ot on file 07/04/2021 Data from: https://www.neighborhoodatlas.medicine.[facility].edu/. Last address used for calculation [id number] [place] [address] [address] 07/04/2021 Education Answer Date Recorded What is the highest level of school you have completed or the highest degree you have received? Master's degree (e.g., MA, MS, Birgit, MEd, DEPENDENCY PROGRAM DIRECTOR, IVANIA) 10/15/2019 Comments No Sex and Gender [...] 09/18/2024 12:30 PM EDT Infusion Center Hematology/Oncology [address] [place] [address] [place] [address] Hodges dressing and cap change;Labs as needed per patient 09/22/2024 12:30 PM EDT Office Visit Gastroenterology [address] [id number] It Trainer, Hpn [address] [place] [address] HPN / PAGE [id number] 09/22/2024 1:00 PM EDT Office Visit Gastroenterology [address] [id number] Georgina Barkley MD [facility] [address] [place], [place] [phone] HPN / PAGE [id number] 09/25/2024 9:00 AM EDT Infusion Center Hematology/Oncology [address] [place] [address] [place] [address] Hodges dressing and cap change;Labs as needed per patient 09/29/2024 10:15 AM EDT Appointment [facility] Endoscopy - ENDO [address] [place] [address] [place] [address] [place] [address] EGD 10/02/2024 9:00 AM EDT Infusion Center Hematology/Oncology [address] [place] [address] [place] [address] Hodges dressing and cap change;Labs as needed per patient 10/09/2024 9:00 AM EDT Infusion Center Hematology/Oncology [address] [place] [address] [place] [address] Hodges dressing and cap change;Labs as needed per patient documented as of this encounter Visit Diagnoses Not on filedocumented in this encounter Additional Health Concerns Infection Onset Date Last Indicated Resolved Time COVID-19 Rule-Out 01/29/2022 01/29/2022 01/29/2022 6:59 PM EST COVID-19 Rule-Out 06/06/2023 06/06/2023 06/06/2023 6:19 PM EDT documented as of this encounter Care Teams Clarifier Operator Relationship Specialty Start Date End Date Shanna June CNP [address] [place] [address] PCP - General Family Medicine 01/31/20 01/18/22 Rachel Foley [place] [address] [place] [address] PCP - General Family Medicine 01/19/22 06/15/22 Anna Mendez APRN.TORPEDO WORKER [address] [place] [address] PCP - General 06/16/22 07/29/23 Thomas Alas MD [address] [facility] [place] [address] PCP - General Family Medicine 07/30/23 Antelmo Davey MD [address] [facility] [place] [address] 09/25/19 [place] [address] [place] [address] Consulting General Surgery 09/25/19 Shanna June CNP [address] [place] [address] Referring Family Medicine 10/19/19 Tj Najera PA [address] [address] Referring Family Medicine 05/13/22 Georgina Barkley MD [address] [place] [address] Home Parenteral Nutrition Provider Gastroenterology 10/14/23 documented as of this encounter
--- OUTSIDE RECORDS SUMMARY | 2024-09-15 16:36 | XMS_ITS | Encounter Summary ---
Author Organization [facility] Address [address] [place] [address] Care Team Providers Care Aquaculture Worker Name Role Phone Antelmo Davey MD Unavailable Deacon Valladares MD Unavailable Shanna June CNP Unavailable [phone] Shanna June CNP Primary Care Provider [phone] Rachel Foley MD Primary Care Provider [phone] Tj Najera Unavailable [phone] Anna Mendez APRN.[facility] Primary Care Provider Thomas Alas MD Primary Care Provider +-4 Georgina Barkley MD Unavailable [phone] Source Comments In the event this information is protected by the Federal Confidentiality of Alcohol and Drug AbusePatient Records regulations: The Federal rules restrict any use of the information to criminally investigate or prosecute any alcohol or drug abuse patient.[facility] Encounter Details Date Type Department Care Team (Late st Contact Info) Description 12/18/2021 Patient Msg [facility] [address] [place] [address] Provider, Ccf Important Instructions reminder regarding your upcoming EGD Huerta/Huerta Insert Please follow Directions carefully in order to avoid your procedure being cancelled or rescheduled. Thank you Social History Tobacco Use Types [...] N ot on file 07/04/2021 Data from: https://www.neighborhoodatlas.medicine.[facility].edu/. Last address used for calculation [address] 07/04/2021 Education Answer Date Recorded What is the highest level of school you have completed or the highest degree you have received? Master's degree (e.g., MA, MS, Birgit, MEd, MECHANIC FIELD SERVICE, IVANIA) 10/15/2019 Comments No Sex and Gender [...] 09/18/2024 12:30 PM EDT Infusion Center Hematology/Oncology [address] [place] [address] [place] [address] Hodges dressing and cap change;Labs as needed per patient 09/22/2024 12:30 PM EDT Office Visit Gastroenterology [address] [phone] Requirements Manager, Hpn [address] [place] [address] HPN / PAGE [id number] 09/22/2024 1:00 PM EDT Office Visit Gastroenterology [address] [phone] Georgina Barkley MD [facility] [address] [phone] HPN / PAGE [id number] 09/25/2024 9:00 AM EDT Infusion Center Hematology/Oncology [address] [place] [address] [place] [address] Hodges dressing and cap change;Labs as needed per patient 09/29/2024 10:15 AM EDT Appointment [facility] Endoscopy - ENDO [address] [place] [address] [place] [address] [place] [address] EGD 10/02/2024 9:00 AM EDT Infusion Center Hematology/Oncology [address] [place] [address] [place] [address] Hodges dressing and cap change;Labs as needed per patient 10/09/2024 9:00 AM EDT Infusion Center Hematology/Oncology [address] [place] [address] [place] [address] Hodges dressing and cap change;Labs as needed per patient documented as of this encounter Visit Diagnoses Not on filedocumented in this encounter Additional Health Concerns Infection Onset Date Last Indicated Resolved Time COVID-19 Rule-Out 01/29/2022 01/29/2022 01/29/2022 6:59 PM EST COVID-19 Rule-Out 06/06/2023 06/06/2023 06/06/2023 6:19 PM EDT documented as of this encounter Care Teams Aquaculture Worker Relationship Specialty Start Date End Date Shanna June CNP [address] [place] [address] PCP - General Family Medicine 01/31/20 01/18/22 Rachel Foley MD [address] [facility] [place] [address] PCP - General Family Medicine 01/19/22 06/15/22 Anna Mendez APRN.FLOOR ATTENDANT [address] [address] [place] [address] PCP - General 06/16/22 07/29/23 Thomas Alas MD [address] [facility] [place] [address] PCP - General Family Medicine 07/30/23 Antelmo Davey MD [address] [facility] [place] [address] 09/25/19 [place] [address] [place] [address] Consulting General Surgery 09/25/19 Shanna June CNP [address] [place] [address] Referring Family Medicine 10/19/19 Tj Najera PA [address] [address] Referring Family Medicine 05/13/22 Georgina Barkley MD [address] [place] [address] Home Parenteral Nutrition Provider Gastroenterology 10/14/23 documented as of this encounter
--- OUTSIDE RECORDS SUMMARY | 2024-09-15 16:36 | XMS_ITS | Encounter Summary ---
Author Organization [facility] Address [address] [place] [address] Care Team Providers Care Mailer Apprentice Name Role Phone Antelmo Davey MD Unavailable [phone] Deacon Valladares MD Unavailable Shanna June CNP Unavailable [phone] Tj Najera Unavailable [phone] Thomas Alas MD Primary Care Provider [phone] Georgina Barkley MD Unavailable [phone] Source Comments In the event this information is protected by the Federal Confidentiality of Alcohol and Drug AbusePatient Records regulations: The Federal rules restrict any use of the information to criminally investigate or prosecute any alcohol or drug abuse patient.[facility] Encounter Details Date Type Department Care Team (Late st Contact Info) Description 10/09/2023 Patient Msg [facility] [address] [place] [address] Aryan Ramos MD [address] [place] [address] [place] [address] Appointment Request Social History Tobacco Use Types Packs/Day Years Used Date Smoking Tobacco: Never Smokeless Tobacco: Never Alcohol Use Standard Drinks/Week Comments Not Currently 0 (1 standard drink = 0.6 oz pur e alcohol) [facility] Utilities Answer Date Recorded In the past 12 months has th e electric, gas, oil, or water company threatened to shut off services in your home? No 10/11/2023 Social Connection and Isolat ion Panel [NHANES] Answer Date Recorded In a typical week, how many times do you talk on the phone with family, friends, or neighbors? More than three times a week 10/28/2022 How often do you get togethe r with friends or relatives? Once a week 10/28/2022 How often do you attend chur or gnosticism services? 1 to 4 times per year 10/28/2022 Do you belong to any clubs o r organizations such as quaker groups, unions, fraternal or athletic groups, or [...] PHQ-2 Answer Date Recorded PHQ-2 score 2 09/27/2023 [facility] [place] of Occupat ional Health - Occupational Stress [...] the money to buy more. Never true 10/11/19 24 Within the past 12 months, t he food you bought just didn't last and you didn't have money to get more. Never true 10/11/2023 PRAPARE - Transportation Answer Date Re corded In the past 12 months, has l ack of transportation kept you from medical appointments or from getting medications? No 09/16 In the past 12 months, has l ack of transportation kept you from meetings, work, or from getting things needed for daily living? No 10/11/2023 Housing Stability Vital Sign Answer Eugenio e [...] place to sleep or slept in a fpc (including now)? No 08/08/2023 Housing Stability Vital Sign Answer Eugenio e Recorded In the last 12 months, was t here a time when you were not able to pay the mortgage or rent on time? No 10/11/2023 Number of Times Moved in the Last Year Not on fi le 10/11/2023 At any time in the past 12 m [facility], were you homeless or living in a fpc (including now)? No 10/11/2023 Area Deprivation Index Answer Date Nayan rded National Score (1-100), lower number is lower ri sk 64 06/17/2022 State Score (1-10), lower number is lower risk 4 06/17/2022 Data from: https://www.neighborhoodatlas.medicine.[facility].edu/. Last address used for calculation [address] [place] [address] [address] 06/17/2022 Education Answer Date Recorded What is the highest level of school you have completed or the highest degree you have received? Master's degree (e.g., MA, MS, Birgit, MEd, CYLINDER PRESS FEEDER, IVANIA) 10/15/2019 Comments No Sex and Gender [...] hearing? Answer Date of Assessment Author No 08/08/2023 1:03 PM EDT Jania Whitt RN * Are you blind or do you have serious difficulty seeing, even when wearing glasses? Answer Date of Assessment Author No 08/08/2023 1:03 PM EDT Jania Whitt RN * Do you have serious difficulty walking or climbing stairs? Answer Date of Assessment Author No 08/08/2023 1:03 PM JUNT Jania Whitt RN * Do you have difficulty dressing or bathing? Answer Date of Assessment Author No 08/08/2023 1:03 PM EDT Jania Whitt RN * Because of a physical, mental, or emotional condition, do you have difficulty doing errands alone such as visiting a doctor's office or shopping? Answer Date of Assessment Author No 08/08/2023 1:03 PM Jania Agustin RN documented as of this encounter Mental Status * Because of a physical, mental, or emotional condition, do you have serious difficulty concentrating, remembering, or making decisions? Answer Entry Date Author No 08/08/2023 1:03 PM EDT Jania Whitt RN documented in this encounter Plan of Treatment Upcoming Encounters Date Type Department Care Team (Latest Contact Info) Description 09/18/2024 12:30 PM EDT Infusion Center Hematology/Oncology [address] [place] [address] [place] [address] Carroll dressing and cap change;Labs as needed per patient 09/22/2024 12:30 PM EDT Office Visit Gastroenterology [address] [address] Gas Engine Performance Engineer, Rodneyn [address] [place] [address] HPN / PAGE [id number] 09/22/2024 1:00 PM EDT Office Visit Gastroenterology [address] [phone] Georgina Barkley MD [facility] [address] [phone] HPN / PAGE [id number] 09/25/2024 9:00 AM EDT Infusion Center Hematology/Oncology [address] [place] [address] [place] [address] Hodegs dressing and cap change;Labs as needed per patient 09/29/2024 10:15 AM EDT Appointment [facility] Endoscopy - ENDO [address] [phone] [place] [address] [id number] EGD 10/02/2024 9:00 AM EDT Infusion Center Hematology/Oncology [address] [place] [address] [place] [address] Hodges dressing and cap change;Labs as needed per patient 10/09/2024 9:00 AM EDT Infusion Center Hematology/Oncology [address] [place] [address] [place] [address] Hodges dressing and cap change;Labs as needed per patient documented as of this encounter Visit Diagnoses Not on filedocumented in this encounter Care Teams Mailer Apprentice Relationship Specialty Start Date End Date Thomas Alas MD [address] [place] [address] PCP - General Family Medicine 07/30/23 Antelmo Davey MD [address] [place] [address] 09/25/19 [place] [address] [place] [address] Consulting General Surgery 09/25/19 Shanna June CNP [address] [place] [address] Referring Family Medicine 10/19/19 Tj Najera PA [address] [address] Referring Family Medicine 05/13/22 Georgina Barkley MD [address] [place] [address] Home Parenteral Nutrition Provider Gastroenterology 10/14/23 documented as of this encounter
--- OUTSIDE RECORDS SUMMARY | 2024-09-15 16:36 | XMS_ITS | Encounter Summary ---
Author Organization [facility] Address [address] [place] [address] Care Team Providers Care Railroad Track Inspector Name Role Phone Antelmo Davey MD Unavailable Deacon Valladares MD Unavailable Shanna June CNP Unavailable [phone] Shanna June CNP Primary Care Provider [phone] Rachel Floey MD Primary Care Provider [phone] Tj Najera Unavailable [phone] Anna Mendez APRN.[facility] Primary Care Provider Thomas Alas MD Primary Care Provider +-4 Georgina Barkley MD Unavailable [phone] Source Comments In the event this information is protected by the Federal Confidentiality of Alcohol and Drug AbusePatient Records regulations: The Federal rules restrict any use of the information to criminally investigate or prosecute any alcohol or drug abuse patient.[facility] Encounter Details Date Type Department Care Team (Late st Contact Info) Description 12/18/2021 Patient Msg [facility] [address] [place] [address] Provider, Ccf Important Instructions reminder regarding your [...] on file 07/04/2021 Data from: https://www.neighborhoodatlas.medicine.[facility].edu/. Last address used for calculation [address] 07/04/2021 Education Answer Date Recorded What is the highest level of school you have completed or the highest degree you have received? Master's degree (e.g., MA, MS, Birgit, MEd, ASBESTOS SIDING INSTALLER, IVANIA) 10/15/2019 Comments No Sex and Gender [...] 09/18/2024 12:30 PM EDT Infusion Center Hematology/Oncology [address] [place] [address] [place] [address] Hodges dressing and cap change;Labs as needed per patient 09/22/2024 12:30 PM EDT Office Visit Gastroenterology [address] [phone] Purchasing Supervisor, Hpn [address] [place] [address] HPN / PAGE [phone] 09/22/2024 1:00 PM EDT Office Visit Gastroenterology [address] [phone] Georgina Barkley MD [facility] [address] [phone] HPN / PAGE [phone] 09/25/2024 9:00 AM EDT Infusion Center Hematology/Oncology [address] [place] [address] [place] [address] Hodges dressing and cap change;Labs as needed per patient 09/29/2024 10:15 AM EDT Appointment [facility] Endoscopy - ENDO [address] [place] [address] [place] [address] [place] [address] EGD 10/02/2024 9:00 AM EDT Infusion Center Hematology/Oncology [address] [place] [address] [place] [address] Hodges dressing and cap change;Labs as needed per patient 10/09/2024 9:00 AM EDT Infusion Center Hematology/Oncology [address] [place] [address] [place] [address] Hodges dressing and cap change;Labs as needed per patient documented as of this encounter Visit Diagnoses Not on filedocumented in this encounter Additional Health Concerns Infection Onset Date Last Indicated Resolved Time COVID-19 Rule-Out 01/29/2022 01/29/2022 01/29/2022 6:59 PM EST COVID-19 Rule-Out 06/06/2023 06/06/2023 06/06/2023 6:19 PM EDT documented as of this encounter Care Teams Railroad Track Inspector Relationship Specialty Start Date End Date Shanna June CNP [address] [place] [address] PCP - General Family Medicine 01/31/20 01/18/22 Rachel Foley MD [address] [facility] [place] [address] PCP - General Family Medicine 01/19/22 06/15/22 Anna Mendez APRN.SENIOR DATA MODELER [address] [address] [place] [address] PCP - General 06/16/22 07/29/23 Thomas Alas MD [address] [facility] [place] [address] PCP - General Family Medicine 07/30/23 Antelmo Davey MD [address] [facility] [place] [address] 09/25/19 [place] [address] [place] [address] Consulting General Surgery 09/25/19 Shanna June CNP [address] [place] [address] Referring Family Medicine 10/19/19 Tj Najera PA [address] [address] Referring Family Medicine 05/13/22 Georgina Barkley MD [address] [place] [address] Home Parenteral Nutrition Provider Gastroenterology 10/14/23 documented as of this encounter
--- OUTSIDE RECORDS SUMMARY | 2024-09-15 16:36 | XMS_ITS | Encounter Summary ---
Author Organization [facility] Address [address] [place] [address] Care Team Providers Care Supervisor Electronics Assembly Name Role Phone Antelmo Davey MD Unavailable Deacon Valladares MD Unavailable [phone] Shanna June CNP Unavailable [phone] Shanna June CNP Primary Care Provider [phone] Rachel Foley MD Primary Care Provider [phone] Tj Najera Unavailable [phone] Anna Mendez APRN.[facility] Primary Care Provider Thomas Alas MD Primary Care Provider +-[phone] eGorgina Barkley MD Unavailable [phone] Source Comments In the event this information is protected by the Federal Confidentiality of Alcohol and Drug AbusePatient Records regulations: The Federal rules restrict any use of the information to criminally investigate or prosecute any alcohol or drug abuse patient.[facility] Encounter Details Date Type Department Care Team (Late st Contact Info) Description 07/14/2021 Patient Msg Gastroenterology [address] [address] Kasie Avalos MD [address] [place] [address] Appointment Request Social History Tobacco Use Types [...] N ot on file 07/04/2021 Data from: https://www.neighborhoodatlas.medicine.[facility].edu/. Last address used for calculation [address] 07/04/2021 Education Answer Date Recorded What is the highest level of school you have completed or the highest degree you have received? Master's degree (e.g., MA, MS, Birgit, MEd, SAP SPECIALIST, IVANIA) 10/15/2019 Comments No Sex and Gender [...] 09/18/2024 12:30 PM EDT Infusion Center Hematology/Oncology [address] [place] [address] [place] [address] Carroll dressing and cap change;Labs as needed per patient 09/22/2024 12:30 PM EDT Office Visit Gastroenterology [address] [address] Informal Waiter/Waitress, Hpn [address] [place] [address] HPN / PAGE [id number] 09/22/2024 1:00 PM EDT Office Visit Gastroenterology [address] [id number] Georgina Barkley MD [facility] [address] [place] [address] [id number] HPN / PAGE [id number] 09/25/2024 9:00 AM EDT Infusion Center Hematology/Oncology [address] [place] [address] [place] [address] Hodges dressing and cap change;Labs as needed per patient 09/29/2024 10:15 AM EDT Appointment [facility] Endoscopy - ENDO [address] [place] [address] [place] [address] [place] [address] EGD 10/02/2024 9:00 AM EDT Infusion Center Hematology/Oncology [address] [place] [address] [place] [address] Hodges dressing and cap change;Labs as needed per patient 10/09/2024 9:00 AM EDT Infusion Center Hematology/Oncology [address] [place] [address] [place] [address] Hodges dressing and cap change;Labs as needed per patient documented as of this encounter Visit Diagnoses Not on filedocumented in this encounter Additional Health Concerns Infection Onset Date Last Indicated Resolved Time COVID-19 Rule-Out 01/29/2022 01/29/2022 01/29/2022 6:59 PM EST COVID-19 Rule-Out 06/06/2023 06/06/2023 06/06/2023 6:19 PM EDT documented as of this encounter Care Teams Supervisor Electronics Assembly Relationship Specialty Start Date End Date Shanna June CNP [address] [place] [address] PCP - General Family Medicine 01/31/20 01/18/22 Rachel Foley MD [address] [place] [address] PCP - General Family Medicine 01/19/22 06/15/22 Anna Mendez APRN.INSTALLATION AND SERVICE TECHNICIAN [address] [place] [address] PCP - General 06/16/22 07/29/23 Thomas Alas MD [address] [place] [address] PCP - General Family Medicine 07/30/23 Antelmo Davey MD [address] [place] [address] 09/25/19 [place] [address] [place] [address] Consulting General Surgery 09/25/19 Shanna June, BETH [address] [place] [address] Referring Family Medicine 10/19/19 Tj Najera PA [address] [address] Referring Family Medicine 05/13/22 Georgina Barkley MD [address] [place] [address] Home Parenteral Nutrition Provider Gastroenterology 10/14/23 documented as of this encounter
--- OUTSIDE RECORDS SUMMARY | 2024-09-15 16:36 | XMS_ITS | Encounter Summary ---
Author Organization [facility] tem Address [id number] [address] [place] [address] Care Team Providers Care Postal Delivery Officer Name Role Phone No Pcp, No Pcp Primary Care Provider Unavailabl e Encounter Details Date Type Department Care Team (Late st Contact Info) Description 09/28/2017 Orders Only [facility] [address] [place] [id number] Holger Alcala MD [address] [facility] [address] [place] [address] Social History Tobacco Use Types Packs/Day Years [...] on filedocumented in this encounter Care Teams Postal Delivery Officer Relationship Specialty Start Date End Date No Pcp, [place] [address] PCP - General Family Medicine 09/22/17 documented as of this encounter
--- OUTSIDE RECORDS SUMMARY | 2024-09-15 16:36 | XMS_ITS | Encounter Summary ---
Author Organization [facility] Address [address] [place] [address] Care Team Providers Care Abalone Fisherman Name Role Phone Antelmo Davey MD Unavailable [phone] Deacon Valladares MD Unavailable Shanna June CNP Unavailable [phone] Shanna June CNP Primary Care Provider [phone] Rachel Foley MD Primary Care Provider [phone] Tj Najera Unavailable [phone] Anna Mendez APRN.[facility] Primary Care Provider Thomas Alas MD Primary Care Provider +-4 Georgina Barkley MD Unavailable [phone] Source Comments In the event this information is protected by the Federal Confidentiality of Alcohol and Drug AbusePatient Records regulations: The Federal rules restrict any use of the information to criminally investigate or prosecute any alcohol or drug abuse patient.[facility] Encounter Details Date Type Department Care Team (Late st Contact Info) Description 06/13/2021 Patient Msg Orth and Rheum [place] [address] [place] [address] Provider, Ccf appt Social History Tobacco Use Types Packs/Day Years [...] PHQ-2 Answer Date Recorded PHQ-2 score 2 05/04/2021 Hunger Vital Sign Answer Date Recorded Within [...] (1-100), lower number is lower ri sk Not on file 01/21/2020 State Score (1-10), lower number is lower risk N ot on file 01/21/2020 Data from: https://www.neighborhoodatlas.medicine.[facility].edu/. Last address used for calculation Not on file 01/21/2020 Education Answer Date Recorded What is the highest level of school you have completed or the highest degree you have received? Master's degree (e.g., MA, MS, Birgit, MEd, FIBER OPTIC CENTRAL OFFICE INSTALLER, IVANIA) 10/15/2019 Comments No Sex and [...] suspected to have Coronavirus/COVID-19? No / Unsure 06/10/2021 10:16 AM EDT documented as of this encounter [...] Info) Description 09/18/2024 12:30 PM EDT [facility] Hematology/Oncology [address] [place] [address] [place] [address] Hodges dressing and cap change;Labs as needed per patient 09/22/2024 12:30 PM EDT Office Visit Gastroenterology [address] [id number] Acquisition Advisor, Grupo [address] [place] [address] HPSanchez / PAGE [id number] 09/22/2024 1:00 PM EDT Office Visit Gastroenterology [address] [id number] Georgina Barkley MD [facility] [address] [place], [place] [phone] HPN / PAGE [id number] 09/25/2024 9:00 AM EDT Infusion Center Hematology/Oncology [address] [place] [address] [place] [address] Hodges dressing and cap change;Labs as needed per patient 09/29/2024 10:15 AM EDT Appointment [facility] Endoscopy - ENDO [address] [place] [address] [place] [address] [place] [address] EGD 10/02/2024 9:00 AM EDT Infusion Center Hematology/Oncology [address] [place] [address] [place] [address] Hodges dressing and cap change;Labs as needed per patient 10/09/2024 9:00 AM EDT Infusion Center Hematology/Oncology [address] [place] [address] [place] [address] Hodges dressing and cap change;Labs as needed per patient documented as of this encounter Visit Diagnoses Not on filedocumented in this encounter Additional Health Concerns Infection Onset Date Last Indicated Resolved Time COVID-19 Rule-Out 01/29/2022 01/29/2022 01/29/2022 6:59 PM EST COVID-19 Rule-Out 06/06/2023 06/06/2023 06/06/2023 6:19 PM EDT documented as of this encounter Care Teams Abalone Fisherman Relationship Specialty Start Date End Date Shanna June CNP [address] [place] [address] PCP - General Family Medicine 01/31/20 01/18/22 Rachel Foley MD [address] [facility] [place] [address] PCP - General Family Medicine 01/19/22 06/15/22 Anna Mendez, WATCH CRYSTAL MOLDER.SHOEMAKING FINISHER [address] [address] PCP - General 06/16/22 07/29/23 Thomas Alas MD [address] [place] [address] PCP - General Family Medicine 07/30/23 Antelmo Davey MD [address] [facility] [place] [address] 09/25/19 [place] [address] [place] [address] Consulting General Surgery 09/25/19 Shanna June, BETH [address] [place] [address] Referring Family Medicine 10/19/19 Tj Najera PA [address] [address] Referring Family Medicine 05/13/22 Georgina Barkley MD [address] [place] [address] Home Parenteral Nutrition Provider Gastroenterology 10/14/23 documented as of this encounter
--- OUTSIDE RECORDS SUMMARY | 2024-09-15 16:36 | XMS_ITS | Encounter Summary ---
Author Organization [facility] Address [address] [place] [address] Care Team Providers Care Track And Field Coach Name Role Phone Antelmo Davey MD Unavailable Deacon Valladares MD Unavailable Shanna June CNP Unavailable [phone] Tj Najera Unavailable [phone] Thomas Alas MD Primary Care Provider [phone] Georgina Barkley MD Unavailable [phone] Source Comments In the event this information is protected by the Federal Confidentiality of Alcohol and Drug AbusePatient Records regulations: The Federal rules restrict any use of the information to criminally investigate or prosecute any alcohol or drug abuse patient.[facility] Encounter Details Date Type Department Care Team (Late st Contact Info) Description 09/24/2023 Patient Msg Neurology [address] [place] [address] Pablo Pradhan, PSYD [address] [place] [address] Appointment Request Social History Tobacco Use Types Packs/Day Years Used Date Smoking Tobacco: Never Smokeless Tobacco: Never Alcohol Use Standard Drinks/Week Comments Not Currently 0 (1 standard drink = 0.6 oz pur e alcohol) [facility] Utilities Answer Date Recorded In the past 12 months has th e electric, gas, oil, or water company threatened to shut off services in your home? No 08/08/2023 Social Connection and Isolat ion Panel [NHANES] Answer Date Recorded In a typical week, how many times do you talk on the phone with family, friends, or neighbors? More than three times a week 10/28/2022 How often do you get togethe r with friends or relatives? Once a week 10/28/2022 How often do you attend chur ch or restorationism services? 1 to 4 times per year 10/28/2022 Do you belong to any clubs o r organizations such as bahai groups, unions, fraternal [...] Answer Date Recorded PHQ-2 score 2 09/27/2023 [facility] of Occupat ional Health - Occupational Stress [...] the money to buy more. Never true 08/08/19 24 Within the past 12 months, t he food you bought just didn't last and you didn't have money to get more. Never true 08/08/2023 PRAPARE - Transportation Answer Date Re corded In the past 12 months, has l ack of transportation kept you from medical appointments or from getting medications? No 07/17 In the past 12 months, has l ack of transportation kept you from meetings, work, or from getting things needed for daily living? No 08/08/2023 Housing Stability Vital Sign Answer [...] place to sleep or slept in a long-term (including now)? No 08/08/2023 Area Deprivation Index Answer Date Nayan rded National Score (1-100), lower number is lower ri sk 64 06/17/2022 State Score (1-10), lower number is lower risk 4 06/17/2022 Data from: https://www.neighborhoodatlas.medicine.[facility].edu/. Last address used for calculation [address] [place] [address] [address] 06/17/2022 Education Answer Date Recorded What is the highest level of school you have completed or the highest degree you have received? Master's degree (e.g., MA, MS, Birgit, MEd, CASER IN, IVANIA) 10/15/2019 Comments No Sex and Gender [...] 1:03 PM EDT Jania Whitt RN documented as of this encounter Mental [...] 09/18/2024 12:30 PM EDT Infusion Center Hematology/Oncology [address] [place] [address] [place] [address] Hodges dressing and cap change;Labs as needed per patient 09/22/2024 12:30 PM EDT Office Visit Gastroenterology [address] [phone] Optics Manufacturing Technician, Hpn [address] [place] [address] HPN / PAGE [id number] 09/22/2024 1:00 PM EDT Office Visit Gastroenterology [address] [address] Georgina Barkley MD [facility] [address] [address] HPN / PAGE [id number] 09/25/2024 9:00 AM EDT Infusion Center Hematology/Oncology [address] [place] [address] [place] [address] Hodges dressing and cap change;Labs as needed per patient 09/29/2024 10:15 AM EDT Appointment [facility] Endoscopy - ENDO [address] [place] [address] [place] [address] [place] [address] EGD 10/02/2024 9:00 AM EDT Infusion Center Hematology/Oncology [address] [place] [address] [place] [address] Hodges dressing and cap change;Labs as needed per patient 10/09/2024 9:00 AM EDT Infusion Center Hematology/Oncology [address] [place] [address] [place] [address] Hodges dressing and cap change;Labs as needed per patient documented as of this encounter Visit Diagnoses Not on filedocumented in this encounter Care Teams Track And Field Coach Relationship Specialty Start Date End Date Thomas Alas MD [address] [place] [address] PCP - General Family Medicine 07/30/23 Antelmo Davey MD [address] [place] [address] 09/25/19 [place] [address] [place] [address] Consulting General Surgery 09/25/19 Shanna June, BETH [address] [place] [address] Referring Family Medicine 10/19/19 Tj Najera PA [address] [address] [place] [address] Referring Family Medicine 05/13/22 Georgina Barkley MD [address] [place] [address] Home Parenteral Nutrition Provider Gastroenterology 10/14/23 documented as of this encounter
--- OUTSIDE RECORDS SUMMARY | 2024-09-15 16:36 | XMS_ITS | Encounter Summary ---
Author Organization [facility] Address [address] [place] [address] Care Team Providers Care Avian Keeper Name Role Phone Antelmo Davey MD Unavailable Deacon Valladares MD Unavailable [phone] Shanna June CNP Unavailable [phone] Shanna June CNP Primary Care Provider [phone] Rachel Foley MD Primary Care Provider [phone] Tj Najera Unavailable [phone] Anna Mendez APRN.[facility] Primary Care Provider Thomas Alas MD Primary Care Provider +-[phone] Georgina Barkley MD Unavailable [phone] Source Comments In the event this information is protected by the Federal Confidentiality of Alcohol and Drug AbusePatient Records regulations: The Federal rules restrict any use of the information to criminally investigate or prosecute any alcohol or drug abuse patient.[facility] Encounter Details Date Type Department Care Team (Late st Contact Info) Description 04/04/2021 Get Medical Advice BMI [facility] [place] [address] [facility] [place] [address] [place] [address] [place], [place] [id number] Medical Social History Tobacco Use Types Packs/Day Years [...] PHQ-2 Answer Date Recorded PHQ-2 score 2 03/22/2021 Hunger Vital Sign Answer Date Recorded Within [...] N ot on file 01/21/2020 Data from: https://www.neighborhoodatlas.medicine.[facility].edu/. Last address used for calculation Not on file 01/21/2020 Education Answer Date Recorded What is the highest level of school you have completed or the highest degree you have received? 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 No / Unsure 03/20/2021 5:58 AM EST documented as of this encounter Functional Status [...] 09/18/2024 12:30 PM EDT Infusion Center Hematology/Oncology [address] [place] [address] [place] [address] Hodges dressing and cap change;Labs as needed per patient 09/22/2024 12:30 PM EDT Office Visit Gastroenterology [address] [address] Blister Packaging Machine Operator, Grupo [address] [place] [address] GRUPO / PAGE [id number] 09/22/2024 1:00 PM EDT Office Visit Gastroenterology [address] [phone] Georgina Barkley MD [facility] [address] [place] [address] [id number] HPN / PAGE [id number] 09/25/2024 9:00 AM EDT Infusion Center Hematology/Oncology [address] [place] [address] [place] [address] Hodges dressing and cap change;Labs as needed per patient 09/29/2024 10:15 AM EDT Appointment [facility] Endoscopy - ENDO [address] [place] [address] [place] [address] [place], [place] [id number] EGD 10/02/2024 9:00 AM EDT Infusion Center Hematology/Oncology [address] [place] [address] [place] [address] Hodges dressing and cap change;Labs as needed per patient 10/09/2024 9:00 AM EDT Infusion Center Hematology/Oncology [address] [place] [address] [place] [address] Hodges dressing and cap change;Labs as needed per patient documented as of this encounter Visit Diagnoses Not on filedocumented in this encounter Additional Health Concerns Infection Onset Date Last Indicated Resolved Time COVID-19 Rule-Out 01/29/2022 01/29/2022 01/29/2022 6:59 PM EST COVID-19 Rule-Out 06/06/2023 06/06/2023 06/06/2023 6:19 PM EDT documented as of this encounter Care Teams Avian Keeper Relationship Specialty Start Date End Date Shanna June CNP [address] [place] [address] PCP - General Family Medicine 01/31/20 01/18/22 Rachel Foley MD [address] [place] [address] PCP - General Family Medicine 01/19/22 06/15/22 Anna Mendez APRN.AMERICAN SIGN LANGUAGE TEACHER [address] [facility] [place] [address] PCP - General 06/16/22 07/29/23 Thomas Alas MD [address] [place] [address] PCP - General Family Medicine 07/30/23 Antelmo Davey MD [address] [place] [address] 09/25/19 [place] [address] [place] [address] Consulting General Surgery 09/25/19 Shanna June, BETH [address] [place] [address] Referring Family Medicine 10/19/19 Tj Najera PA [address] [place] [address] Referring Family Medicine 05/13/22 Georgina Barkley MD [address] [place] [address] Home Parenteral Nutrition Provider Gastroenterology 10/14/23 documented as of this encounter
--- OUTSIDE RECORDS SUMMARY | 2024-09-15 16:36 | XMS_ITS | Encounter Summary ---
Author Organization [facility] Address [address] [place] [address] Care Team Providers Care Auto Damage Adjuster Name Role Phone Antelmo Davey MD Unavailable [phone] Deacon Valladares MD Unavailable Shanna June CNP Unavailable [phone] Shanna June CNP Primary Care Provider [phone] Rachel Foley MD Primary Care Provider [phone] Tj Najera Unavailable [phone] Anna Mendez APRN.[facility] Primary Care Provider Thomas Alas MD Primary Care Provider +[phone] Georgina Barkley MD Unavailable [phone] Source Comments In the event this information is protected by the Federal Confidentiality of Alcohol and Drug AbusePatient Records regulations: The Federal rules restrict any use of the information to criminally investigate or prosecute any alcohol or drug abuse patient.[facility] Encounter Details Date Type Department Care Team (Late st Contact Info) Description 04/09/2021 Patient Msg Family Medicine [id number] [facility] [place] [address] Provider, Ccf Appointment Cancellation Social History Tobacco Use Types Packs/Day Years [...] N ot on file 01/21/2020 Data from: https://www.neighborhoodatlas.medicine.[facility].edu/. Last address used for calculation Not on file 01/21/2020 Education Answer Date Recorded What is the highest level of school you have completed or the highest degree you have received? Master's degree (e.g., MA, MS, Birgit, MEd, SENIOR UNIX ADMINISTRATOR, IVANIA) 10/15/2019 Comments No Sex and Gender [...] of Assessment Author No 12/25/2020 6:09 PM Ofeila Connor RN * Because of a physical, [...] Contact Info) Description 09/18/2024 12:30 PM EDT [facility] Center Hematology/Oncology [address] [place] [address] [place] [address] Hodges dressing and cap change;Labs as needed per patient 09/22/2024 12:30 PM EDT Office Visit Gastroenterology [address] [address] Accounts Receivable Collector, Grupo [address] [place] [address] HPN / PAGE [id number] 09/22/2024 1:00 PM EDT Office Visit Gastroenterology [address] [address] Georgina Barkley MD [facility] [address] [place] [address] HPN / PAGE [id number] 09/25/2024 9:00 AM EDT Infusion Center Hematology/Oncology [address] [place] [address] [place] [address] Hodges dressing and cap change;Labs as needed per patient 09/29/2024 10:15 AM EDT Appointment [facility] Endoscopy - ENDO [address] [place] [address] [place] [address] [place] [address] EGD 10/02/2024 9:00 AM EDT Infusion Center Hematology/Oncology [address] [place] [address] [place] [address] Hodges dressing and cap change;Labs as needed per patient 10/09/2024 9:00 AM EDT Infusion Center Hematology/Oncology [address] [place] [address] [place] [address] Hodges dressing and cap change;Labs as needed per patient documented as of this encounter Visit Diagnoses Not on filedocumented in this encounter Additional Health Concerns Infection Onset Date Last Indicated Resolved Time COVID-19 Rule-Out 01/29/2022 01/29/2022 01/29/2022 6:59 PM EST COVID-19 Rule-Out 06/06/2023 06/06/2023 06/06/2023 6:19 PM EDT documented as of this encounter Care Teams Auto Damage Adjuster Relationship Specialty Start Date End Date Shanna June CNP [address] [place] [address] PCP - General Family Medicine 01/31/20 01/18/22 Rachel Foley MD [address] [place] [address] PCP - General Family Medicine 01/19/22 06/15/22 Anna Mendez, COMMERCIAL CONSTRUCTION ESTIMATOR.[facility] [address] [address] PCP - General 06/16/22 07/29/23 Thomas Alas MD [address] [place] [address] PCP - General Family Medicine 07/30/23 Antelmo Davey MD [address] [facility] [place] [address] 09/25/19 [place] [address] [place] [address] Consulting General Surgery 09/25/19 Shanna June, BETH [address] [place] [address] Referring Family Medicine 10/19/19 Tj Najera PA [address] [address] Referring Family Medicine 05/13/22 Georgina Barkley MD [address] [place] [address] Home Parenteral Nutrition Provider Gastroenterology 10/14/23 documented as of this encounter
--- OUTSIDE RECORDS SUMMARY | 2024-09-15 16:36 | XMS_ITS | Encounter Summary ---
Author Organization [facility] Address [address] [place] [address] Care Team Providers Care Parole Supervisor Name Role Phone Antelmo Davey MD Unavailable Deacon Valladares MD Unavailable Shanna June CNP Unavailable [phone] Tj Najera Unavailable [phone] Thomas Alas MD Primary Care Provider [phone] Georgina Barkley MD Unavailable [phone] Source Comments In the event this information is protected by the Federal Confidentiality of Alcohol and Drug AbusePatient Records regulations: The Federal rules restrict any use of the information to criminally investigate or prosecute any alcohol or drug abuse patient.[facility] Encounter Details Date Type Department Care Team (Late st Contact Info) Description 09/14/2024 Results Follow-Up Endocrinology [address] [place] [address] [place] [address] [place] [address] Social History Tobacco Use Types Packs/Day Years Used Date Smoking Tobacco: Never Smokeless Tobacco: Never Alcohol Use Standard Drinks/Week Comments Not Currently 0 (1 standard drink = 0.6 oz pur e alcohol) [facility] Utilities Answer Date Recorded In the past [...] often do you attend chur ch or muslim services? 1 to 4 times per year 10/28/2022 Do you belong to any clubs o r organizations such as sabianist groups, unions, fraternal or athletic groups, or [...] Answer Date Recorded PHQ-2 score 2 08/21/2024 [facility] [place] of Occupat ional Health - Occupational Stress [...] place to sleep or slept in a mcfp (including now)? No 08/08/2023 Housing Stability Vital Sign Answer Eugenio e Recorded In the last 12 months, was t here a time when you were not able to pay the mortgage or rent on time? No 04/12/2024 Number of Times Moved in the Last Year Not on fi le 04/12/2024 At any time in the past 12 m [facility], were you homeless or living in a mcfp (including now)? No 04/12/2024 Area Deprivation Index Answer Date Nayan rded National Score (1-100), lower number is lower ri sk 64 06/17/2022 State Score (1-10), lower number is lower risk 4 06/17/2022 Data from: https://www.neighborhoodatlas.medicine.[facility].edu/. Last address used for calculation [address] [address] [facility] [facility] [address] 06/17/2022 Education Answer Date Recorded What is the highest level of school you have completed or the highest degree you have received? Master's degree (e.g., MA, MS, Birgit, MEd, GERMAN PROFESSOR, IVANIA) 10/15/2019 Comments No Sex and Gender [...] 09/18/2024 12:30 PM EDT Infusion Center Hematology/Oncology [address] [place] [address] [place] [address] Hodges dressing and cap change;Labs as needed per patient 09/22/2024 12:30 PM EDT Office Visit Gastroenterology [address] [place] [id number] Wood Veneer Taper, Hpn [address] [place] [address] HPN / PAGE [id number] 09/22/2024 1:00 PM EDT Office Visit Gastroenterology [address] [place] [id number] Georgina Barkley MD [facility] [address] [place] [address] HPN / PAGE [id number] 09/25/2024 9:00 AM EDT Infusion Center Hematology/Oncology [address] [place] [address] [place] [address] Hodges dressing and cap change;Labs as needed per patient 09/29/2024 10:15 AM EDT Appointment [facility] Endoscopy - ENDO [address] [place] [address] [place] [address] [place] [address] EGD 10/02/2024 9:00 AM EDT Infusion Center Hematology/Oncology [address] [place] [address] [place] [address] Hodges dressing and cap change;Labs as needed per patient 10/09/2024 9:00 AM EDT Infusion Center Hematology/Oncology [address] [place] [address] [place] [address] Hodges dressing and cap change;Labs as needed per patient documented as of this encounter Goals Goal Patient Goal Type Associated Problems Recent Progress Patient-Stated? Author Blood Pressure < 140/90 Blood Pressure 112/76( 025 8:48 AM EDT) No Hannah Devlin MD documented as of this encounter Visit Diagnoses Not on filedocumented in this encounter Care Teams Parole Supervisor Relationship Specialty Start Date End Date Thomas Alas MD [address] [place] [address] PCP - General Family Medicine 07/30/23 Antelmo Davey MD [address] [place] [address] 09/25/19 [place] [address] [place] [address] Consulting General Surgery 09/25/19 Shanna June CNP [address] [place] [address] Referring Family Medicine 10/19/19 Tj Najera PA [address] [address] Referring Family Medicine 05/13/22 Georgina Barkley MD [address] [place] [address] Home Parenteral Nutrition Provider Gastroenterology 10/14/23 documented as of this encounter
--- OUTSIDE RECORDS SUMMARY | 2024-09-15 16:36 | XMS_ITS | Encounter Summary ---
Author Organization [facility] Address [address] [place] [address] Care Team Providers Care Core Machine Operator Name Role Phone Anetlmo Davey MD Unavailable Deacon Valladares MD Unavailable [phone] Shanna June CNP Unavailable [phone] Tj Najera Unavailable [phone] Thomas Alas MD Primary Care Provider [phone] Georgina Barkley MD Unavailable [phone] Source Comments In the event this information is protected by the Federal Confidentiality of Alcohol and Drug AbusePatient Records regulations: The Federal rules restrict any use of the information to criminally investigate or prosecute any alcohol or drug abuse patient.[facility] Reason for Visit * Reason Onset Date Comments Refill Request 09/14/2024 Encounter Details Date Type Department Care Team (Late st Contact Info) Description 09/14/2024 Refill Gastroenterology [address] [id number] Kasie Avalos MD 9500 [place] [address] Refill Request Social History Tobacco Use Types Packs/Day Years Used Date Smoking Tobacco: Never Smokeless Tobacco: Never Alcohol Use Standard Drinks/Week Comments Not Currently 0 (1 standard drink = 0.6 oz pur e alcohol) [facility] Utilities Answer Date Recorded In the [...] often do you attend chur ch or buddhism services? 1 to 4 times per year 10/28/2022 Do you belong to any clubs o r organizations such as hindu groups, unions, fraternal or athletic groups, or [...] Answer Date Recorded PHQ-2 score 2 08/21/2024 [facility] [place] of Occupat ional Health - Occupational Stress [...] place to sleep or slept in a nursing home (including now)? No 08/08/2023 Housing Stability Vital Sign Answer Eugenio e Recorded In the last 12 months, was t here a time when you were not able to pay the mortgage or rent on time? No 04/12/2024 Number of Times Moved in the Last Year Not on fi le 04/12/2024 At any time in the past 12 m [facility], were you homeless or living in a nursing home (including now)? No 04/12/2024 Area Deprivation Index Answer Date Nayan rded National Score (1-100), lower number is lower ri sk 64 06/17/2022 State Score (1-10), lower number is lower risk 4 06/17/2022 Data from: https://www.neighborhoodatlas.medicine.[facility].edu/. Last address used for calculation [id number] [place] [address] [address] 06/17/2022 Education Answer Date Recorded What is the highest level of school you have completed or the highest degree you have received? Master's degree (e.g., MA, MS, Birgit, MEd, HEALTHCARE MARKET CONSULTANT, IVANIA) 10/15/2019 Comments No Sex and Gender [...] Sandra Cordoba RN documented in this encounter Miscellaneous Notes * Telephone Encounter - Grecia Velasquez - 09/14/2024 1:05 PM EDT Last visit 03/01/24; EGD 03/10/24 Grecia Velasquez documented in this encounter Plan of Treatment Upcoming Encounters Date Type Department Care Team (Latest Contact Info) Description 09/18/2024 12:30 PM EDT [facility] Center Hematology/Oncology [address] [place] [address] [place] [address] Hodges dressing and cap change;Labs as needed per patient 09/22/2024 12:30 PM EDT Office Visit Gastroenterology [address] [address] Pipe Buffer, Hpn [address] [place] [address] HPN / PAGE [id number] 09/22/2024 1:00 PM EDT Office Visit Gastroenterology [address] [address] Georgina Barkley MD [facility] [address] [place] [address] HPN / PAGE [id number] 09/25/2024 9:00 AM EDT Infusion Center Hematology/Oncology [address] [place] [address] [place] [address] Hodges dressing and cap change;Labs as needed per patient 09/29/2024 10:15 AM EDT Appointment [facility] Endoscopy - ENDO [address] [place] [address] [place] [address] [place] [address] EGD 10/02/2024 9:00 AM EDT Infusion Center Hematology/Oncology [address] [place] [address] [place] [address] Hodges dressing and cap change;Labs as needed per patient 10/09/2024 9:00 AM EDT Infusion Center Hematology/Oncology [address] [place] [address] [place] [address] Hodges dressing and cap change;Labs as needed per patient documented as of this encounter Goals Goal Patient Goal Type Associated Problems Recent Progress Patient-Stated? Author Blood Pressure < 140/90 Blood Pressure 112/76( 025 8:48 AM EDT) No Hannah Devlin MD documented as of this encounter Visit Diagnoses Not on filedocumented in this encounter Care Teams Core Machine Operator Relationship Specialty Start Date End Date Thomas Alas MD [address] [facility] [place] [address] PCP - General Family Medicine 07/30/23 Antelmo Davey MD [address] [facility] [place] [address] 09/25/19 [place] [address] [place] [address] Consulting General Surgery 09/25/19 Shanna June CNP [address] [place] [address] Referring Family Medicine 10/19/19 Tj Najera PA [address] [address] Referring Family Medicine 05/13/22 Georgina Barkley MD [address] [place] [address] Home Parenteral Nutrition Provider Gastroenterology 10/14/23 documented as of this encounter
--- OUTSIDE RECORDS SUMMARY | 2024-09-15 16:36 | XMS_ITS | Clinical Summary ---
Author Organization [employer] Address [facility] [id number] [address] [place] [address] Care Team Providers Care Emu Farm Worker Name Role Phone No Pcp, No Pcp [...] Noted Date Diagnosed Date Hypothyroidism affecting in [facility] 09/22/2017 Family History Medical History Relation [...] on file Insurance [employer] Care Teams Emu Farm Worker Relationship Specialty Start Date End Date No Pcp, [place] [id number] PCP - General Family Medicine 09/22/17
--- OUTSIDE RECORDS SUMMARY | 2024-09-15 16:36 | XMS_ITS | Encounter Summary ---
Author Organization [facility] Address [address] [place] [address] Care Team Providers Care Assistant Professor Of Biology Name Role Phone Antelmo Davey MD Unavailable [phone] Deacon Valladares MD Unavailable Shanna June CNP Unavailable [phone] Shanna June CNP Primary Care Provider [phone] Rachel Foley MD Primary Care Provider [phone] Tj Najera Unavailable [phone] Anna Mendez APRN.[facility] Primary Care Provider Thomas Alas MD Primary Care Provider +[phone] Georgina Barkley MD Unavailable [phone] Source Comments In the event this information is protected by the Federal Confidentiality of Alcohol and Drug AbusePatient Records regulations: The Federal rules restrict any use of the information to criminally investigate or prosecute any alcohol or drug abuse patient.[facility] Encounter Details Date Type Department Care Team (Late st Contact Info) Description 04/02/2021 Patient Msg Family Medicine [address] [facility] [place] [address] Provider, Ccf Appointment Cancellation Social History Tobacco [...] N ot on file 01/21/2020 Data from: https://www.neighborhoodatlas.medicine.[facility].edu/. Last address used for calculation Not on file 01/21/2020 Education Answer Date Recorded What is the highest level of school you have completed or the highest degree you have received? Master's degree (e.g., MA, MS, Birgit, MEd, SPEECH COMMUNICATION INSTRUCTOR, IVANIA) 10/15/2019 Comments No Sex and Gender [...] Contact Info) Description 09/18/2024 12:30 PM EDT [facility] Center Hematology/Oncology [address] [place] [address] [place] [address] Hodges dressing and cap change;Labs as needed per patient 09/22/2024 12:30 PM EDT Office Visit Gastroenterology [address] [address] Correction Officer, Grupo [address] [place] [address] HPN / PAGE [id number] 09/22/2024 1:00 PM EDT Office Visit Gastroenterology [address] [address] Georgina Barkley MD [facility] [address] [place] [address] HPN / PAGE [phone] 09/25/2024 9:00 AM EDT Infusion Center Hematology/Oncology [address] [place] [address] [place] [address] Hodges dressing and cap change;Labs as needed per patient 09/29/2024 10:15 AM EDT Appointment Endoscopy - ENDO [address] [place] [address] [place] [address] [place] [address] EGD 10/02/2024 9:00 AM EDT Infusion Center Hematology/Oncology [address] [place] [address] [place] [address] Hodges dressing and cap change;Labs as needed per patient 10/09/2024 9:00 AM EDT Infusion Center Hematology/Oncology [address] [place] [address] [place] [address] Hodges dressing and cap change;Labs as needed per patient documented as of this encounter Visit Diagnoses Not on filedocumented in this encounter Additional Health Concerns Infection Onset Date Last Indicated Resolved Time COVID-19 Rule-Out 01/29/2022 01/29/2022 01/29/2022 6:59 PM EST COVID-19 Rule-Out 06/06/2023 06/06/2023 06/06/2023 6:19 PM EDT documented as of this encounter Care Teams Assistant Professor Of Biology Relationship Specialty Start Date End Date Shanna June CNP [address] [place] [address] PCP - General Family Medicine 01/31/20 01/18/22 Rachel Foley MD [address] [place] [address] PCP - General Family Medicine 01/19/22 06/15/22 Anna Mendez, RADIO MESSAGE ROUTER.[facility] [address] [address] PCP - General 06/16/22 07/29/23 Thomas Alas MD [address] [facility] [place] [address] PCP - General Family Medicine 07/30/23 Antelmo Davey MD [address] [facility] [address] 09/25/19 [place] [address] [place] [address] Consulting General Surgery 09/25/19 Shanna June, BETH [address] [place] [address] Referring Family Medicine 10/19/19 Tj Najera PA [address] [address] Referring Family Medicine 05/13/22 Georgina Barkley MD [address] [place] [address] Home Parenteral Nutrition Provider Gastroenterology 10/14/23 documented as of this encounter
--- OUTSIDE RECORDS SUMMARY | 2024-09-15 16:36 | XMS_ITS | Encounter Summary ---
Author Organization [facility] Address [address] [place] [address] Care Team Providers Care Plating And Point Assembly Supervisor Name Role Phone Antelmo Davey MD Unavailable [phone] Deacon Valladares MD Unavailable Shanna June CNP Unavailable [phone] Tj Najera Unavailable [phone] Thomas Alas MD Primary Care Provider [phone] Georgina Barkley MD Unavailable [phone] Source Comments In the event this information is protected by the Federal Confidentiality of Alcohol and Drug AbusePatient Records regulations: The Federal rules restrict any use of the information to criminally investigate or prosecute any alcohol or drug abuse patient.[facility] Encounter Details Date Type Department Care Team (Late st Contact Info) Description 09/15/2024 Telephone Gastroenterology [address] [address] Nutrition Assistant, Hpn [address]00 [place] [address] Social History Tobacco Use Types Packs/Day Years Used Date Smoking Tobacco: Never Smokeless Tobacco: Never Alcohol Use Standard Drinks/Week Comments Not Currently 0 (1 standard drink = 0.6 oz pur e alcohol) [facility] Utilities Answer Date Recorded In the [...] often do you attend chur ch or episcopalian services? 1 to 4 times per year 10/28/2022 Do you belong to any clubs o r organizations such as mandaeism groups, unions, fraternal or athletic groups, or [...] Answer Date Recorded PHQ-2 score 2 08/21/2024 [facility] Occupat ional Health - Occupational Stress [...] place to sleep or slept in a fci (including now)? No 08/08/2023 Housing Stability Vital Sign Answer Eugenio e Recorded In the last 12 months, was t here a time when you were not able to pay the mortgage or rent on time? No 04/12/2024 Number of Times Moved in the Last Year Not on fi le 04/12/2024 At any time in the past 12 m [facility], were you homeless or living in a fci (including now)? No 04/12/2024 Area Deprivation Index Answer Date Nayan rded National Score (1-100), lower number is lower ri sk 64 06/17/2022 State Score (1-10), lower number is lower risk 4 06/17/2022 Data from: https://www.neighborhoodatlas.medicine.[facility].edu/. Last address used for calculation [address] 06/17/2022 Education Answer Date Recorded What is the highest level of school you have completed or the highest degree you have received? Master's degree (e.g., MA, MS, Birgit, MEd, WATER RESOURCES PROGRAM DIRECTOR, IVANIA) 10/15/2019 Comments No Sex [...] encounter Miscellaneous Notes * Telephone Encounter - Joanne Mcclain RD - 09/15/2024 4:26 PM EDT Home Nutrition Support Service Labs from Monday 09/11 just received today. Labs reveal low Na, low K+, and low Mg++. Call to patient who reports she has not infused PN since being in the hospital. She states her PCP told her not toinfuse the first week she was home to ensure she was not having any more chills/fevers, as PCP was concerned her line was source of recent infection/positive blood cx. Note it was suspected that patient's line was the source of her positive blood cx but she received IV abx in hospital and was discharged on oral, so we ordered repeat blood cx for next week to monitor since HNS was not made aware of admission to request more thorough workup before patient was discharged. Explained to patient thatsince we are managing PN, we need to be involved in decisions relating to PN such as holding, etc. Patient apologized for not thinking to call us and let us know of her PCP's recommendations. Asked patient if she has been admitted again since the last discharge we were aware of on 09/02 and she saidno. Explained it has been more than a week and asked about this since she says PCP told her to holdPN for a week, but she reports she still has not resumed infusions. She said she is just now getting around to resuming PN and plans to infuse for the first time since hospitalization this weekend.Patient reports severe fatigue, nausea, and heart palpitations. I explained these can all be symptoms of hypokalemia and recommended she go to ED today, as it has now been weeks since patient infused PN, she is symptomatic of low lytes, and labs are already 4 days old so could be worsened by now. Patient expressed understanding of my recommendation to go to ED. No PN orders sent at this time. Pharmacy updated that we recommended patient go to ED. They did not need to mix until 09/18. Will monitorfor outcome of ED visit. Reccs: - Await outcome of ED visit Joanne Mcclain RD, LD, CNSC documented in this encounter Plan of Treatment Upcoming Encounters Date Type Department Care Team (Latest Contact Info) Description 09/18/2024 12:30 PM EDT Infusion Center Hematology/Oncology [address] [place] [address] [place] [address] Hodges dressing and cap change;Labs as needed per patient 09/22/2024 12:30 PM EDT Office Visit Gastroenterology [address] [address] Nutrition Assistant, Grupo [address] [place] [address] HPN / PAGE [id number] 09/22/2024 1:00 PM EDT Office Visit Gastroenterology [address] [address] Georgina Barkley MD [facility] [address] [place] [address] HPN / PAGE [id number] 09/25/2024 9:00 AM EDT Infusion Center Hematology/Oncology [address] [place] [address] [place] [address] Hodges dressing and cap change;Labs as needed per patient 09/29/2024 10:15 AM EDT Appointment [facility] Endoscopy - ENDO [address] [place] [address] [place] [address] [place] [address] EGD 10/02/2024 9:00 AM EDT Infusion Center Hematology/Oncology [address] [place] [address] [place] [address] Hodges dressing and cap change;Labs as needed per patient 10/09/2024 9:00 AM EDT Infusion Center Hematology/Oncology [address] [place] [address] [place] [address] Hodges dressing and cap change;Labs as needed per patient documented as of this encounter Goals Goal Patient Goal Type Associated Problems Recent Progress Patient-Stated? Author Blood Pressure < 140/90 Blood Pressure 112/76( 025 8:48 AM EDT) No Hannah Devlin MD documented as of this encounter Visit Diagnoses Not on filedocumented in this encounter Care Teams Plating And Point Assembly Supervisor Relationship Specialty Start Date End Date Thomas Alas MD [address] [place] [address] PCP - General Family Medicine 07/30/23 Antelmo Davey MD [address] [place] [address] 09/25/19 [place] [address] [place] [address] Consulting General Surgery 09/25/19 Shanna June CNP [address] [place] [address] Referring Family Medicine 10/19/19 Tj Najera PA [address] [address] Referring Family Medicine 05/13/22 Georgina Barkley MD [address] [place] [address] Home Parenteral Nutrition Provider Gastroenterology 10/14/23 documented as of this encounter
--- OUTSIDE RECORDS SUMMARY | 2024-09-15 16:36 | XMS_ITS | Encounter Summary ---
Author Organization [facility] Address [address] [place] [address] Care Team Providers Care Switcher Name Role Phone Antelmo Davey MD Unavailable [phone] Deacon Valladares MD Unavailable [phone] Shanna June CNP Unavailable [phone] Shanna June CNP Primary Care Provider [phone] Rachel Foley MD Primary Care Provider [phone] Tj Najera Unavailable [phone] Anna Mendez APRN.[facility] Primary Care Provider Thomas Alas MD Primary Care Provider +[phone] Georgina Barkley MD Unavailable [phone] Source Comments In the event this information is protected by the Federal Confidentiality of Alcohol and Drug AbusePatient Records regulations: The Federal rules restrict any use of the information to criminally investigate or prosecute any alcohol or drug abuse patient.[facility] Encounter Details Date Type Department Care Team (Late st Contact Info) Description 04/04/2021 Get Medical Advice BMI [facility] REJ [address] [place] [address] [place] [address] [place], [place] [id number] Apr 04 Social History Tobacco Use Types Packs/Day Years [...] N ot on file 01/21/2020 Data from: https://www.neighborhoodatlas.medicine.[facility].edu/. Last address used for calculation Not on file 01/21/2020 Education Answer Date Recorded What is the highest level of school you have completed or the highest degree you have received? Master's degree (e.g., MA, MS, Birgit, MEd, IT SECURITY MANAGER, IVANIA) 10/15/2019 Comments No Sex and [...] 09/18/2024 12:30 PM EDT Infusion Center Hematology/Oncology [address] [place] [address] [place] [address] Carroll dressing and cap change;Labs as needed per patient 09/22/2024 12:30 PM EDT Office Visit Gastroenterology [address] [address] Kiln Charger, [address]upo [address] [place] [address] HPN / PAGE [id number] 09/22/2024 1:00 PM EDT Office Visit Gastroenterology [address] [place] [phone] Georgina Barkley MD [facility] [address] [place] [id number] HPN / PAGE [id number] 09/25/2024 9:00 AM EDT Infusion Center Hematology/Oncology [address] [place] [address] [place] [address] Hodges dressing and cap change;Labs as needed per patient 09/29/2024 10:15 AM EDT Appointment [facility] Endoscopy - ENDO [address] [place] [address] [place] [address] [place], [place] [id number] EGD 10/02/2024 9:00 AM EDT Infusion Center Hematology/Oncology [address] [place] [address] [place] [address] Hodges dressing and cap change;Labs as needed per patient 10/09/2024 9:00 AM EDT Infusion Center Hematology/Oncology [address] [place] [address] [place] [address] Hodges dressing and cap change;Labs as needed per patient documented as of this encounter Visit Diagnoses Not on filedocumented in this encounter Additional Health Concerns Infection Onset Date Last Indicated Resolved Time COVID-19 Rule-Out 01/29/2022 01/29/2022 01/29/2022 6:59 PM EST COVID-19 Rule-Out 06/06/2023 06/06/2023 06/06/2023 6:19 PM EDT documented as of this encounter Care Teams Switcher Relationship Specialty Start Date End Date Shanna June CNP [address] [place] [address] PCP - General Family Medicine 01/31/20 01/18/22 Rachel Foley MD [address] [place] [address] PCP - General Family Medicine 01/19/22 06/15/22 Anna Mendez APRN.GOLF BALL MOLDER [address] [address] [place] [address] PCP - General 06/16/22 07/29/23 Thomas Alas MD [address] [place] [address] PCP - General Family Medicine 07/30/23 Antelmo Davey MD [address] [place] [address] 09/25/19 [place] [address] [place] [address] Consulting General Surgery 09/25/19 Shanna June, BETH [address] [place] [address] Referring Family Medicine 10/19/19 Tj Najera PA [address] [place] [address] Referring Family Medicine 05/13/22 Georgina Barkley MD [address] [place] [address] Home Parenteral Nutrition Provider Gastroenterology 10/14/23 documented as of this encounter
--- OUTSIDE RECORDS SUMMARY | 2024-09-15 16:36 | XMS_ITS | Encounter Summary ---
Author Organization [facility] Address [address] [place] [address] Care Team Providers Care Mammal Control Agent Name Role Phone Antelmo Davey MD Unavailable Deacon Valladares MD Unavailable Shanna June CNP Unavailable [phone] Shanna June CNP Primary Care Provider [phone] Rachel Foley MD Primary Care Provider [phone] Tj Najera Unavailable [phone] Anna Mendez APRN.[facility] Primary Care Provider Thomas Alas MD Primary Care Provider +-4 Georgina Barkley MD Unavailable [phone] Source Comments In the event this information is protected by the Federal Confidentiality of Alcohol and Drug AbusePatient Records regulations: The Federal rules restrict any use of the information to criminally investigate or prosecute any alcohol or drug abuse patient.[facility] Encounter Details Date Type Department Care Team (Late st Contact Info) Description 07/14/2021 Patient Msg General Surgery [address] [place] [address] [place] [address] [place] [phone] Appointment Request Social History Tobacco Use Types [...] N ot on file 07/04/2021 Data from: https://www.neighborhoodatlas.medicine.[facility].edu/. Last address used for calculation [address] 07/04/2021 Education Answer Date Recorded What is the highest level of school you have completed or the highest degree you have received? 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 Not on file Not on file COVID-19 Exposure Response Date Recorded In the last 10 days, have kathy u been in contact with someone who [...] 09/18/2024 12:30 PM EDT Infusion Center Hematology/Oncology [address] [place] [address] [place] [address] Carroll dressing and cap change;Labs as needed per patient 09/22/2024 12:30 PM EDT Office Visit Gastroenterology [address] [address] Electrician Crane Maintenance, [address] [place] [address] HPN / PAGE [id number] 09/22/2024 1:00 PM EDT Office Visit Gastroenterology [address] [place] [phone] Georgina Barkley MD [facility] [address] [place] [phone] HPN / PAGE [id number] 09/25/2024 9:00 AM EDT Infusion Center Hematology/Oncology [address] [place] [address] [place] [address] Ohdges dressing and cap change;Labs as needed per patient 09/29/2024 10:15 AM EDT Appointment [facility] Endoscopy - ENDO [address] [place] [address] [place] [address] [place] [address] EGD 10/02/2024 9:00 AM EDT Infusion Center Hematology/Oncology [address] [place] [address] [place] [address] Hodges dressing and cap change;Labs as needed per patient 10/09/2024 9:00 AM EDT Infusion Center Hematology/Oncology [address] [place] [address] [place] [address] Hodges dressing and cap change;Labs as needed per patient documented as of this encounter Visit Diagnoses Not on filedocumented in this encounter Additional Health Concerns Infection Onset Date Last Indicated Resolved Time COVID-19 Rule-Out 01/29/2022 01/29/2022 01/29/2022 6:59 PM EST COVID-19 Rule-Out 06/06/2023 06/06/2023 06/06/2023 6:19 PM EDT documented as of this encounter Care Teams Mammal Control Agent Relationship Specialty Start Date End Date Shanna June CNP [address] [place] [address] PCP - General Family Medicine 01/31/20 01/18/22 Rachel Foley MD [address] [place] [address] PCP - General Family Medicine 01/19/22 06/15/22 Anna Mendez APRN.PHLEBOTOMY SERVICES REPRESENTATIVE [address] [address] PCP - General 06/16/22 07/29/23 Thomas Alas MD [address] [place] [address] PCP - General Family Medicine 07/30/23 Antelmo Davye MD [address] [facility] [address] 09/25/19 [place] [address] [place] [address] Consulting General Surgery 09/25/19 Shanna June, BETH [address] [place] [address] Referring Family Medicine 10/19/19 Tj Najera PA [address] [address] Referring Family Medicine 05/13/22 Georgina Barkley MD [address] [place] [address] Home Parenteral Nutrition Provider Gastroenterology 10/14/23 documented as of this encounter
--- OUTSIDE RECORDS SUMMARY | 2024-09-15 16:36 | XMS_ITS | Encounter Summary ---
Author Organization [facility] Address [address] [place] [address] Care Team Providers Care Tanbark Laborer Name Role Phone Antelmo Davey MD Unavailable Deacon Valladares MD Unavailable Shanna June CNP Unavailable [phone] Shanna June CNP Primary Care Provider [phone] Rachel Foley MD Primary Care Provider [phone] Tj Najera Unavailable [phone] Anna Mendez APRN.[facility] Primary Care Provider Thomas Alas MD Primary Care Provider +-4 Georgina Barkley MD Unavailable [phone] Source Comments In the event this information is protected by the Federal Confidentiality of Alcohol and Drug AbusePatient Records regulations: The Federal rules restrict any use of the information to criminally investigate or prosecute any alcohol or drug abuse patient.[facility] Encounter Details Date Type Department Care Team (Late st Contact Info) Description 06/24/2021 Patient Msg Pre Anesthesia [address] [place] [phone] Ana Cristina Begum PA-C [address] [place], [place] [phone] Pre Op Instructions Social History Tobacco Use Types Packs/Day Years [...] N ot on file 01/21/2020 Data from: https://www.neighborhoodatlas.medicine.[facility].edu/. Last address used for calculation Not on file 01/21/2020 Education Answer Date Recorded What is the highest level of school you have completed or the highest degree you have received? Master's degree (e.g., MA, MS, Birgit, MEd, AIR TABLE OPERATOR, IVANIA) 10/15/2019 Comments No Sex and [...] suspected to have Coronavirus/COVID-19? No / Unsure 06/23/2021 4:16 PM EDT documented as of this encounter [...] 09/18/2024 12:30 PM EDT Infusion Center Hematology/Oncology [address] [place] [address] [place] [address] Carroll dressing and cap change;Labs as needed per patient 09/22/2024 12:30 PM EDT Office Visit Gastroenterology [address] [address] Respiratory Therapy Technician, [address] [place] [address] HPN / PAGE [id number] 09/22/2024 1:00 PM EDT Office Visit Gastroenterology [address] [place] [phone] Georgina Barkley MD [facility] [address] [place] [id number] HPN / PAGE [id number] 09/25/2024 9:00 AM EDT Infusion Center Hematology/Oncology [address] [place] [address] [place] [address] Hodges dressing and cap change;Labs as needed per patient 09/29/2024 10:15 AM EDT Appointment [facility] Endoscopy - ENDO [address] [place] [address] [place] [address] [place] [address] EGD 10/02/2024 9:00 AM EDT Infusion Center Hematology/Oncology [address] [place] [address] [place] [address] Hodges dressing and cap change;Labs as needed per patient 10/09/2024 9:00 AM EDT Infusion Center Hematology/Oncology [address] [place] [address] [place] [address] Hodges dressing and cap change;Labs as needed per patient documented as of this encounter Visit Diagnoses Not on filedocumented in this encounter Additional Health Concerns Infection Onset Date Last Indicated Resolved Time COVID-19 Rule-Out 01/29/2022 01/29/2022 01/29/2022 6:59 PM EST COVID-19 Rule-Out 06/06/2023 06/06/2023 06/06/2023 6:19 PM EDT documented as of this encounter Care Teams Tanbark Laborer Relationship Specialty Start Date End Date Shanna June CNP [address] [place] [address] PCP - General Family Medicine 01/31/20 01/18/22 Rachel Foley MD [address] [place] [address] PCP - General Family Medicine 01/19/22 06/15/22 Anna Mendez APRN.LEISURE TRAVEL AGENT [address] [address] PCP - General 06/16/22 07/29/23 Thomas Alas MD [address] [place] [address] PCP - General Family Medicine 07/30/23 Antelmo Davey MD [address] [facility] [place] [address] 09/25/19 [place] [address] [place] [address] Consulting General Surgery 09/25/19 Shanna June, BETH [address] [place] [address] Referring Family Medicine 10/19/19 Tj Najera PA [address] [address] Referring Family Medicine 05/13/22 Georgina Barkley MD [address] [place] [address] Home Parenteral Nutrition Provider Gastroenterology 10/14/23 documented as of this encounter
--- OUTSIDE RECORDS SUMMARY | 2024-09-15 16:36 | XMS_ITS | Encounter Summary ---
Author Organization [facility] Address [address] [place] [address] Care Team Providers Care Social Security Benefits Interviewer Name Role Phone Antelmo Davey MD Unavailable Deacon Valladares MD Unavailable [phone] Shanna June CNP Unavailable +[phone] Shanna June CNP Primary Care Provider [phone] Rachel Foley MD Primary Care Provider [phone] Tj Najera Unavailable [phone] Anna Mendez APRN.[facility] Primary Care Provider Thomas Alas MD Primary Care Provider +-4 Georgina Barkley MD Unavailable [phone] Source Comments In the event this information is protected by the Federal Confidentiality of Alcohol and Drug AbusePatient Records regulations: The Federal rules restrict any use of the information to criminally investigate or prosecute any alcohol or drug abuse patient.[facility] Encounter Details Date Type Department Care Team (Late st Contact Info) Description 12/01/2021 Get Medical Advice General Surgery [address] [place] [address] Sabina Jacobo, TRANSVERSE ABDOMINAL MUSCLE SURGEON.PSYCHOLOGICAL STRESS EVALUATOR [address] [id number] Weight Social History Tobacco Use Types Packs/Day [...] N ot on file 07/04/2021 Data from: https://www.neighborhoodatlas.medicine.[facility].edu/. Last address used for calculation [address] 46 07/04/2021 Education Answer Date Recorded What is the highest level of school you have completed or the highest degree you have received? Master's degree (e.g., MA, MS, Birgit, MEd, INSPECTOR PURCHASED PARTS, IVANIA) 10/15/2019 Comments No Sex and Gender [...] 09/18/2024 12:30 PM EDT Infusion Center Hematology/Oncology [address] [place] [address] [place] [address] Hodges dressing and cap change;Labs as needed per patient 09/22/2024 12:30 PM EDT Office Visit Gastroenterology [address] [id number] Bellhop Captain, Grupo [address] [place] [address] GRUPO / PAGE [phone] 09/22/2024 1:00 PM EDT Office Visit Gastroenterology [address] [id number] Georgina Barkley MD [facility] [address] [id number] HPN / PAGE [id number] 09/25/2024 9:00 AM EDT Infusion Center Hematology/Oncology [address] [place] [address] [place] [address] Hodges dressing and cap change;Labs as needed per patient 09/29/2024 10:15 AM EDT Appointment [facility] Endoscopy - ENDO [address] [place] [address] [place] [address] [place] [address] EGD 10/02/2024 9:00 AM EDT Infusion Center Hematology/Oncology [address] [place] [address] [place] [address] Hodges dressing and cap change;Labs as needed per patient 10/09/2024 9:00 AM EDT Infusion Center Hematology/Oncology [address] [place] [address] [place] [address] Hodges dressing and cap change;Labs as needed per patient documented as of this encounter Visit Diagnoses Not on filedocumented in this encounter Additional Health Concerns Infection Onset Date Last Indicated Resolved Time COVID-19 Rule-Out 01/29/2022 01/29/2022 01/29/2022 6:59 PM EST COVID-19 Rule-Out 06/06/2023 06/06/2023 06/06/2023 6:19 PM EDT documented as of this encounter Care Teams Social Security Benefits Interviewer Relationship Specialty Start Date End Date Shanna June CNP [address] [place] [address] PCP - General Family Medicine 01/31/20 01/18/22 Rachel Foley MD [address] [facility] [place] [address] PCP - General Family Medicine 01/19/22 06/15/22 Anna Mendez APRN.PSYCHOLOGICAL STRESS EVALUATOR [address] [address] PCP - General 06/16/22 07/29/23 Thomas Alas MD [address] [place] [address] PCP - General Family Medicine 07/30/23 Antelmo Davey MD [address] [place] [address] 09/25/19 [place] [address] [place] [address] Consulting General Surgery 09/25/19 Shanna June CNP [address] [place] [address] Referring Family Medicine 10/19/19 Tj Najera PA [address] [address] Referring Family Medicine 05/13/22 Georgina Barkley MD [address] [place] [address] Home Parenteral Nutrition Provider Gastroenterology 10/14/23 documented as of this encounter
--- OUTSIDE RECORDS SUMMARY | 2024-09-15 16:36 | XMS_ITS | Encounter Summary ---
Author Organization [facility] Address [address] [place] [address] Care Team Providers Care Peer Specialist Name Role Phone Antelmo Davey MD Unavailable Deacon Valladares MD Unavailable [phone] Shanna June CNP Unavailable +[phone] Shanna June CNP Primary Care Provider [phone] Rachel Foley MD Primary Care Provider [phone] Tj Najera Unavailable [phone] Anna Mendez APRN.[facility] Primary Care Provider Thomas Alas MD Primary Care Provider +-4 Georgina Barkley MD Unavailable [phone] Source Comments In the event this information is protected by the Federal Confidentiality of Alcohol and Drug AbusePatient Records regulations: The Federal rules restrict any use of the information to criminally investigate or prosecute any alcohol or drug abuse patient.[facility] Encounter Details Date Type Department Care Team (Late st Contact Info) Description 04/09/2021 Abstract BMI [facility] REJ [address] [place] [address] Rashida Cote MD [address] [place] [address] Social History Tobacco Use Types Packs/Day Years [...] N ot on file 01/21/2020 Data from: https://www.neighborhoodatlas.medicine.[facility].edu/. Last address used for calculation Not on file 01/21/2020 Education Answer Date Recorded What is the highest level of school you have completed or the highest degree you have received? Master's degree (e.g., MA, MS, Birgit, MEd, PROCESS TANK TENDER, IVANIA) 10/15/2019 Comments No Sex and Gender [...] 12:30 PM EDT Infusion Center Hematology/Oncology [address] [place] [address] [place] [address] Hodges dressing and cap change;Labs as needed per patient 09/22/2024 12:30 PM EDT Office Visit Gastroenterology [address] [address] Equipment Service Technician, Grupo [address] [place] [address] HPN / PAGE [id number] 09/22/2024 1:00 PM EDT Office Visit Gastroenterology [address] [id number] Georgina Barkley MD [facility] [address] [id number] HPN / PAGE [id number] 09/25/2024 9:00 AM EDT Infusion Center Hematology/Oncology [address] [place] [address] [place] [address] Hodges dressing and cap change;Labs as needed per patient 09/29/2024 10:15 AM EDT Appointment [facility] Endoscopy - ENDO [address] [place] [address] [place] [address] [place], [place] [id number] EGD 10/02/2024 9:00 AM EDT Infusion Center Hematology/Oncology [address] [place] [address] [place] [address] Hodges dressing and cap change;Labs as needed per patient 10/09/2024 9:00 AM EDT Infusion Center Hematology/Oncology [address] [place] [address] [place] [address] Hodges dressing and cap change;Labs as needed per patient documented as of this encounter Visit Diagnoses Not on filedocumented in this encounter Additional Health Concerns Infection Onset Date Last Indicated Resolved Time COVID-19 Rule-Out 01/29/2022 01/29/2022 01/29/2022 6:59 PM EST COVID-19 Rule-Out 06/06/2023 06/06/2023 06/06/2023 6:19 PM EDT documented as of this encounter Care Teams Peer Specialist Relationship Specialty Start Date End Date Shanna June CNP [address] [place] [address] PCP - General Family Medicine 01/31/20 01/18/22 Rachel Foley MD [address] [facility] [place] [address] PCP - General Family Medicine 01/19/22 06/15/22 Anna Mendez APRN.CAMPAIGN ASSOCIATE [address] [facility] [address] [place] [address] PCP - General 06/16/22 07/29/23 Thomas Alas MD [address] [place] [address] PCP - General Family Medicine 07/30/23 Antelmo Davey MD [address] [place] [address] 09/25/19 [place] [address] [place] [address] Consulting General Surgery 09/25/19 Shanna June, BETH [address] [place] [address] Referring Family Medicine 10/19/19 Tj Najera PA [address] [address] Referring Family Medicine 05/13/22 Georgina Barkley MD [address] [place] [address] Home Parenteral Nutrition Provider Gastroenterology 10/14/23 documented as of this encounter
--- OUTSIDE RECORDS SUMMARY | 2024-09-15 16:36 | XMS_ITS | Patient Health Record ---
Author Organization [facility] es Address [address] [place] [address] Care Team Providers Care Associate Director Finance Name Role Phone Ashley Bryson Primary Care Provider Reason For Referral No Information Encounters Encounter Location Date Provider Diagnosis [address] [place] [address] 04/25/2024 Ashley Bryson Encounter for dental examination [...] Of Treatment Next Appt Details Provider Name:Christina Angelica, 11/03/2024 02:15:00 PM, [address] [place], [address], Insurance Providers Payer Name Payer Address Payer Phone Subscriber Number Group Number Insured Name Patient Relationship to Insured Coverage Start Date Coverage End Date Dental [employer] DQ [address] [address] [place] [address] [id number] JUAN KONG Self - patient is the insured 5 Dental Wrap [facility] Humana [address] [place] [address] [id number] JUAN KONG Self - patient is the insured 5
--- OUTSIDE RECORDS SUMMARY | 2024-09-15 16:36 | XMS_ITS | Encounter Summary ---
Author Organization [facility] Address [address] [place] [address] Care Team Providers Care Denial Resolution Specialist Name Role Phone Antelmo Davey MD Unavailable Deacon Valladares MD Unavailable Shanna June CNP Unavailable [phone] Shanna June CNP Primary Care Provider [phone] Rachel Foley MD Primary Care Provider [phone] Tj Najera Unavailable [phone] Anna Mendez APRN.[facility] Primary Care Provider Thomas Alas MD Primary Care Provider +-4 Georgina Barkley MD Unavailable [phone] Source Comments In the event this information is protected by the Federal Confidentiality of Alcohol and Drug AbusePatient Records regulations: The Federal rules restrict any use of the information to criminally investigate or prosecute any alcohol or drug abuse patient.[facility] Encounter Details Date Type Department Care Team (Late st Contact Info) Description 12/15/2021 Get Medical Advice General Surgery [address] [place] [address] Sabina Jacobo, RETORT SETTER.LATRINE CLEANER [address] [id number] Appointment Social History Tobacco Use Types Packs/Day [...] N ot on file 07/04/2021 Data from: https://www.neighborhoodatlas.medicine.[facility].edu/. Last address used for calculation [address] 46 07/04/2021 Education Answer Date Recorded What is the highest level of school you have completed or the highest degree you have received? Master's degree (e.g., MA, MS, Birgit, MEd, DIRECTOR DIGITAL, IVANIA) 10/15/2019 Comments No Sex and Gender [...] 09/18/2024 12:30 PM EDT Infusion Center Hematology/Oncology [address] [place] [address] [place] [address] Hodges dressing and cap change;Labs as needed per patient 09/22/2024 12:30 PM EDT Office Visit Gastroenterology [address] [phone] Bond Broker, Grupo [address] [place] [address] GRUPO / PAGE [id number] 09/22/2024 1:00 PM EDT Office Visit Gastroenterology [address] [phone] Georgina Barkley MD [facility] [address] [id number] HPN / PAGE [id number] 09/25/2024 9:00 AM EDT Infusion Center Hematology/Oncology [address] [place] [address] [place] [address] Hodges dressing and cap change;Labs as needed per patient 09/29/2024 10:15 AM EDT Appointment [facility] Endoscopy - ENDO [address] [place] [address] [place] [address] [place] [address] EGD 10/02/2024 9:00 AM EDT Infusion Center Hematology/Oncology [address] [place] [address] [place] [address] Hodges dressing and cap change;Labs as needed per patient 10/09/2024 9:00 AM EDT Infusion Center Hematology/Oncology [address] [place] [address] [place] [address] Hodges dressing and cap change;Labs as needed per patient documented as of this encounter Visit Diagnoses Not on filedocumented in this encounter Additional Health Concerns Infection Onset Date Last Indicated Resolved Time COVID-19 Rule-Out 01/29/2022 01/29/2022 01/29/2022 6:59 PM EST COVID-19 Rule-Out 06/06/2023 06/06/2023 06/06/2023 6:19 PM EDT documented as of this encounter Care Teams Denial Resolution Specialist Relationship Specialty Start Date End Date Shanna June CNP [address] [place] [address] PCP - General Family Medicine 01/31/20 01/18/22 Rachel Foley MD [address] [facility] [place] [address] PCP - General Family Medicine 01/19/22 06/15/22 Anna Mendez APRN.LATRINE CLEANER [address] [address] PCP - General 06/16/22 07/29/23 Thomas Alas MD [address] [place] [address] PCP - General Family Medicine 07/30/23 Antelmo Davey MD [address] [place] [address] 09/25/19 [place] [address] [place] [address] Consulting General Surgery 09/25/19 Shanna June CNP [address] [place] [address] Referring Family Medicine 10/19/19 Tj Najera PA [address] [address] Referring Family Medicine 05/13/22 Georgina Barkley MD [address] [place] [address] Home Parenteral Nutrition Provider Gastroenterology 10/14/23 documented as of this encounter
--- OUTSIDE RECORDS SUMMARY | 2024-09-15 16:36 | XMS_ITS | Encounter Summary ---
Author Organization [facility] Address [address] [place], [place] [address] Care Team Providers Care Fixed Route Operator Name Role Phone TiffanieMarcos DO Primary Care Provider [phone] Antelmo Davey MD Unavailable [phone] Deacon Valladares MD Unavailable [phone] Shanna June CNP Unavailable +[phone] Shanna June ORTHOTICS PROSTHETICS ASSISTANT Primary Care Provider [phone] Rachel Foley MD Primary Care Provider [phone] Tj Najera Unavailable [phone] Anna Mendez APRN.ORTHOTICS PROSTHETICS ASSISTANT Primary Care Provider Thomas Alas MD Primary Care Provider + Georgina Barkley MD Unavailable [phone] Source Comments In the event this information is protected by the Federal Confidentiality of Alcohol and Drug AbusePatient Records regulations: The Federal rules restrict any use of the information to criminally investigate or prosecute any alcohol or drug abuse patient.[facility] Encounter Details Date Type Department Care Team (Late st Contact Info) Description 09/25/2019 Patient Msg General Surgery [address] [place], [place] [id number] Provider, Ccf EGD instructions Social History Tobacco Use Types Packs/Day Years Used Date Smoking Tobacco: Never Assessed Comments Unknown Sex and Gender Information Value Date Recorded Sex Assigned at Not on file Legal Sex Female 10:06 AM EST Gender Identity Not on file Sexual Orientation Not on file COVID-19 Exposure Response Date Recorded In the last month, have you been in contact with someone who was confirmed or suspected to have Coronavirus / COVID-19? No / Unsure 09/28/2019 9:01 AM EDT documented as of this encounter Plan of Treatment Upcoming Encounters Date Type Department Care Team (Latest Contact Info) Description 09/18/2024 12:30 PM EDT Infusion Center Hematology/Oncology [address] [place] [address] [place] [address] Hodges dressing and cap change;Labs as needed per patient 09/22/2024 12:30 PM EDT Office Visit Gastroenterology [address] [phone] Contract Writer, Hpn [address] [place] [address] HPN / PAGE [id number] 09/22/2024 1:00 PM EDT Office Visit Gastroenterology [address] [address] Georgina Barkley MD [address] [address] HPN / PAGE [id number] 09/25/2024 9:00 AM EDT Infusion Center Hematology/Oncology [address] [place] [address] [place] [address] Hodges dressing and cap change;Labs as needed per patient 09/29/2024 10:15 AM EDT Appointment [facility] Endoscopy - ENDO [address] [place] [address] [place] [address] [place] [address] EGD 10/02/2024 9:00 AM EDT Infusion Center Hematology/Oncology [address] [place] [address] [place] [address] Hodges dressing and cap change;Labs as needed per patient 10/09/2024 9:00 AM EDT Infusion Center Hematology/Oncology [address] [place] [address] [place] [address] Hodges dressing and cap change;Labs as needed per patient documented as of this encounter Visit Diagnoses Not on filedocumented in this encounter Additional Health Concerns Infection Onset Date Last Indicated Resolved Time COVID-19 Rule-Out 01/31/2020 01/31/2020 02/01/2020 6:54 AM EST COVID-19 Rule-Out 02/06/2020 02/06/2020 02/06/2020 11:53 PM EST COVID-19 Rule-Out 04/04/2020 04/04/2020 04/05/2020 5:49 AM EST COVID-19 Rule-Out 12/21/2020 12/21/2020 12/21/2020 11:01 PM EDT COVID-19 Rule-Out 12/21/2020 12/21/2020 12/25/2020 9:09 PM EST COVID-19 Rule-Out 01/29/2022 01/29/2022 01/29/2022 6:59 PM EST COVID-19 Rule-Out 06/06/2023 06/06/2023 06/06/2023 6:19 PM EDT documented as of this encounter Care Teams Fixed Route Operator Relationship Specialty Start Date End Date Marcos Moreno DO [address] [place] [address] [place] [address] PCP - General Pool Player 09/25/19 01/30/20 Shanna June, BETH [address] [place] [address] PCP - General Family Medicine 01/31/20 01/18/22 Rachel Foley MD [address] [facility] [place] [address] PCP - General Family Medicine 01/19/22 06/15/22 Anna Mendez APRN.ORTHOTICS PROSTHETICS ASSISTANT [address] [address] PCP - General 06/16/22 07/29/23 Thomas Alas MD [address] [facility] [place] [address] PCP - General Family Medicine 07/30/23 Antelmo Davey MD [address] [facility] [place] [address] 09/25/19 [place] [address] [place] [address] Consulting General Surgery 09/25/19 Shanna June, BETH [address] [place] [address] Referring Family Medicine 10/19/19 Tj Najera PA [address] [address] Referring Family Medicine 05/13/22 Georgina Barkley MD [address] [place] [address] Home Parenteral Nutrition Provider Gastroenterology 10/14/23 documented as of this encounter
--- OUTSIDE RECORDS SUMMARY | 2024-09-15 16:36 | XMS_ITS | Encounter Summary ---
Author Organization [facility] tem Address [id number] [address] [place] [address] Care Team Providers Care Beef Cattle Grazier Name Role Phone No Pcp, No Pcp Primary Care Provider Unavailabl e Reason for Visit * Reason Comments Med Refill Encounter Details Date Type Department Care Team (Late st Contact Info) Description 09/17/2019 Refill Maternal- Medicine at [facility] [address] [place] [phone] Marc Martines MD [address] [facility], [address] [place] [address] Gestational diabetes mellitus (GDM) controlled on oral [...] documented as of this encounter Care Teams Beef Cattle Grazier Relationship Specialty Start Date End Date No Pcp, [place] [address] PCP - General Family Medicine 09/22/17 documented as of this encounter
--- OUTSIDE RECORDS SUMMARY | 2024-09-15 16:36 | XMS_ITS | Encounter Summary ---
Author Organization [facility] Address [address] [place] [address] Care Team Providers Care Anatomy And Physiology Instructor Name Role Phone Antelmo Davey MD Unavailable [phone] Deacon Valladares MD Unavailable [phone] Shanna June CNP Unavailable +[phone] Shanna June CNP Primary Care Provider [phone] Rachel Foley MD Primary Care Provider [phone] Tj Najera Unavailable [phone] Anna Mnedez APRN.[facility] Primary Care Provider Thomas Alas MD Primary Care Provider +-4 Georgina Barkley MD Unavailable [phone] Source Comments In the event this information is protected by the Federal Confidentiality of Alcohol and Drug AbusePatient Records regulations: The Federal rules restrict any use of the information to criminally investigate or prosecute any alcohol or drug abuse patient.[facility] Encounter Details Date Type Department Care Team (Latest Contact Info) Description 06/18/2021 Patient Msg [facility] [address] [place] [address] Provider, Ccf Dr. Yousif pre-op instructions Social History Tobacco Use Types Packs/Day [...] N ot on file 01/21/2020 Data from: https://www.neighborhoodatlas.medicine.[facility].edu/. Last address used for calculation Not on file 01/21/2020 Education Answer Date Recorded What is the highest level of school you have completed or the highest degree you have received? Master's degree (e.g., MA, MS, Birgit, MEd, BARREL LATHE OPERATOR OUTSIDE, IVANIA) 10/15/2019 Comments No Sex and Gender [...] suspected to have Coronavirus/COVID-19? No / Unsure 06/18/2021 10:23 AM EDT documented as of this encounter [...] Contact Info) Description 09/18/2024 12:30 PM EDT [facility] Hematology/Oncology [address] [place] [address] [place] [address] Hodges dressing and cap change;Labs as needed per patient 09/22/2024 12:30 PM EDT Office Visit Gastroenterology [address] [id number] Stack Clerk, Grupo [address] [place], [place] [id number] HPSanchez / PAGE [id number] 09/22/2024 1:00 PM EDT Office Visit Gastroenterology [address] [id number] Georgina Barkley MD [address] [id number] HPN / PAGE [id number] 09/25/2024 9:00 AM EDT Infusion Center Hematology/Oncology [address] [place] [address] [place] [address] Hodges dressing and cap change;Labs as needed per patient 09/29/2024 10:15 AM EDT Appointment [facility] Endoscopy - ENDO [address] [place] [address] [place] [address] [place] [address] EGD 10/02/2024 9:00 AM EDT Infusion Center Hematology/Oncology [address] [place] [address] [place] [address] Hodges dressing and cap change;Labs as needed per patient 10/09/2024 9:00 AM EDT Infusion Center Hematology/Oncology [address] [place] [address] [place] [address] Hodges dressing and cap change;Labs as needed per patient documented as of this encounter Visit Diagnoses Not on filedocumented in this encounter Additional Health Concerns Infection Onset Date Last Indicated Resolved Time COVID-19 Rule-Out 01/29/2022 01/29/2022 01/29/2022 6:59 PM EST COVID-19 Rule-Out 06/06/2023 06/06/2023 06/06/2023 6:19 PM EDT documented as of this encounter Care Teams Anatomy And Physiology Instructor Relationship Specialty Start Date End Date Shanna June CNP [address] [place] [address] PCP - General Family Medicine 01/31/20 01/18/22 Rachel Foley MD [address] [facility] [address] PCP - General Family Medicine 01/19/22 06/15/22 Anna Mendez APRN.ENVELOPE FOLDING MACHINE ADJUSTER [address] [facility] [address] [place] [address] PCP - General 06/16/22 07/29/23 Thomas Alas MD [address] [place] [address] PCP - General Family Medicine 07/30/23 Antelmo Davey MD [address] [facility] [place] [address] 09/25/19 [place] [address] [place] [address] Consulting General Surgery 09/25/19 Shanna June CNP [address] [place] [address] Referring Family Medicine 10/19/19 Tj Najera PA [address] [facility] [place] [address] Referring Family Medicine 05/13/22 Georgina Barkley MD [address] [place] [address] Home Parenteral Nutrition Provider Gastroenterology 10/14/23 documented as of this encounter
--- OUTSIDE RECORDS SUMMARY | 2024-09-15 16:36 | XMS_ITS | Encounter Summary ---
Author Organization [facility] Address [address] [place] [address] Care Team Providers Care Adult School Counselor Name Role Phone Antelmo Davey MD Unavailable [phone] Deacon Valladares MD Unavailable Shanna June CNP Unavailable [phone] Tj Najera Unavailable [phone] Thmoas Alas MD Primary Care Provider [phone] Georgina Barkley MD Unavailable [phone] Source Comments In the event this information is protected by the Federal Confidentiality of Alcohol and Drug AbusePatient Records regulations: The Federal rules restrict any use of the information to criminally investigate or prosecute any alcohol or drug abuse patient.[facility] Encounter Details Date Type Department Care Team (Late st Contact Info) Description 09/14/2024 Orders Only Endocrinology [address] [place] [address] [place] [address] [place] [address] ACI (adrenal cortical insufficiency) (HCC) (Primary Dx) Social History Tobacco Use Types Packs/Day Years Used Date Smoking Tobacco: Never Smokeless Tobacco: Never Alcohol Use Standard Drinks/Week Comments Not Currently 0 (1 standard drink = 0.6 oz pur e alcohol) [facility] Utilities Answer Date Recorded In the [...] often do you attend chur ch or yazdanism services? 1 to 4 times per year 10/28/2022 Do you belong to any clubs o r organizations such as yarsanism groups, unions, fraternal or athletic groups, or [...] Answer Date Recorded PHQ-2 score 2 08/21/2024 [facility] [place] of Occupat ional Health - Occupational Stress [...] place to sleep or slept in a long term (including now)? No 08/08/2023 Housing Stability Vital [...] were you homeless or living in a long term (including now)? No 04/12/2024 Area Deprivation Index Answer Date Nayan rded National Score (1-100), lower number is lower ri sk 64 06/17/2022 State Score (1-10), lower number is lower risk 4 06/17/2022 Data from: https://www.neighborhoodatlas.medicine.[facility].edu/. Last address used for calculation [id number] [place] [address] [address] 06/17/2022 Education Answer Date Recorded What is the highest level of school you have completed or the highest degree you have received? Master's degree (e.g., MA, MS, Birgit, MEd, GROUNDS CARETAKER, IVANIA) 10/15/2019 Comments No Sex and Gender [...] 09/18/2024 12:30 PM EDT Infusion Center Hematology/Oncology [address] [place] [address] [place] [address] Hodges dressing and cap change;Labs as needed per patient 09/22/2024 12:30 PM EDT Office Visit Gastroenterology [address] [address] Station Mechanic, [employer]upo [address] [place] [address] GRUPO / PAGE [id number] 09/22/2024 1:00 PM EDT Office Visit Gastroenterology [address] [id number] Georgina Barkley MD [facility] [address] [id number] HPN / PAGE [phone] 09/25/2024 9:00 AM EDT Infusion Center Hematology/Oncology [address] [place] [address] [place] [address] Hodges dressing and cap change;Labs as needed per patient 09/29/2024 10:15 AM EDT Appointment [facility] Endoscopy - ENDO [address] [place] [address] [place] [address] [place] [address] EGD 10/02/2024 9:00 AM EDT Infusion Center Hematology/Oncology [address] [place] [address] [place] [address] Hodges dressing and cap change;Labs as needed per patient 10/09/2024 9:00 AM EDT Infusion Center Hematology/Oncology [address] [place] [address] [place] [address] Hodges dressing and cap change;Labs as needed per patient Scheduled Orders Name Type Priority Associated Diagnoses Orde r Schedule ACTH BLD Lab Routine ACI (adrenal cortical insufficiency) (HCC) Expected: 09/28/2024, Expires: 12/14/2024 CORTISOL, SERUM Lab Routine ACI (adrenal cortical insufficiency) (HCC) Expected: 09/28/2024, Expires: 12/14/2024 documented as of this encounter Goals Goal Patient Goal Type Associated Problems Recent Progress Patient-Stated? Author Blood Pressure < 140/90 Blood Pressure 112/76( 025 8:48 AM EDT) Hannah Steel MD documented as of this encounter Visit Diagnoses Diagnosis ACI (adrenal cortical insufficiency) (HCC)- Primary Glucocorticoid deficiency documented in this encounter Care Teams Adult School Counselor Relationship Specialty Start Date End Date Thomas Alas MD [address] [place] [address] PCP - General Family Medicine 07/30/23 Antelmo Davey MD [address] [place] [address] 09/25/19 [place] [address] [place] [address] Consulting General Surgery 09/25/19 Shanna June CNP [address] [place] [address] Referring Family Medicine 10/19/19 Tj Najera PA [address] [address] Referring Family Medicine 05/13/22 Georgina Barkley MD [address] [place] [address] Home Parenteral Nutrition Provider Gastroenterology 10/14/23 documented as of this encounter
--- OUTSIDE RECORDS SUMMARY | 2024-09-15 16:37 | XMS_ITS | Encounter Summary ---
Author Organization [facility] Address [address] [place] [address] Care Team Providers Care Acute Care Occupational Therapist Name Role Phone Antelmo Davey MD Unavailable [phone] Deacon Valladares MD Unavailable [phone] Shanna June CNP Unavailable [phone] Tj Najera Unavailable [phone] Thomas Alas MD Primary Care Provider [phone] Georgina Barkley MD Unavailable [phone] Source Comments In the event this information is protected by the Federal Confidentiality of Alcohol and Drug AbusePatient Records regulations: The Federal rules restrict any use of the information to criminally investigate or prosecute any alcohol or drug abuse patient.[facility] Encounter Details Date Type Department Care Team (Late st Contact Info) Description 08/17/2023 Patient Msg [facility] [address] [place] [address] Provider, Ccf Important Instructions reminder regarding your upcoming EGD Huerta/Huerta Insert Please follow Directions carefully in order to avoid your procedure being cancelled or rescheduled. Thank you. Social History Tobacco Use Types Packs/Day Years Used Date Smoking Tobacco: Never Smokeless Tobacco: Never Alcohol Use Standard Drinks/Week Comments Not Currently 0 (1 standard drink = 0.6 oz pur e alcohol) [facility] Utilities Answer Date Recorded In [...] often do you attend chur ch or shinto services? 1 to 4 times per year [...] PHQ-2 Answer Date Recorded PHQ-2 score 2 07/09/2023 [facility] [place] of Occupat ional Health - Occupational Stress [...] place to sleep or slept in a half-way (including now)? No 08/08/2023 Area Deprivation Index Answer Date Nayan rded National Score (1-100), lower number is lower ri sk 64 06/17/2022 State Score (1-10), lower number is lower risk 4 06/17/2022 Data from: https://www.neighborhoodatlas.medicine.[facility].edu/. Last address used for calculation [id number] [place] [address] [address] 06/17/2022 Education Answer Date Recorded What is the highest level of school you have completed or the highest degree you have received? Master's degree (e.g., MA, MS, Birgit, MEd, TILLER WORKER, IVANIA) 10/15/2019 Comments No Sex and [...] 09/18/2024 12:30 PM EDT Infusion Center Hematology/Oncology [address] [place] [address] [place] [address] Hodges dressing and cap change;Labs as needed per patient 09/22/2024 12:30 PM EDT Office Visit Gastroenterology [address] [id number] Substation Mechanic, Hpn [address] [place] [id number] HPN / PAGE [id number] 09/22/2024 1:00 PM EDT Office Visit Gastroenterology [address] [id number] Georgina Barkley MD [facility] [place] [address] [place], [place] [phone] HPN / PAGE [phone] 09/25/2024 9:00 AM EDT Infusion Center Hematology/Oncology [address] [place] [address] [place] [address] Hodges dressing and cap change;Labs as needed per patient 09/29/2024 10:15 AM EDT Appointment [facility] Endoscopy - ENDO [address] [place] [address] [place] [address] [place] [address] EGD 10/02/2024 9:00 AM EDT Infusion Center Hematology/Oncology [address] [facility] [place] [address] Hodges dressing and cap change;Labs as needed per patient 10/09/2024 9:00 AM EDT Infusion Center Hematology/Oncology [address] [facility] [place] [address] Hodges dressing and cap change;Labs as needed per patient documented as of this encounter Visit Diagnoses Not on filedocumented in this encounter Care Teams Acute Care Occupational Therapist Relationship Specialty Start Date End Date Thomas Alas MD [address] [place] [address] PCP - General Family Medicine 07/30/23 Antelmo Davey MD [address] [place] [address] 09/25/19 [place] [address] [place] [address] Consulting General Surgery 09/25/19 Shanna June, BETH [address] [place] [address] Referring Family Medicine 10/19/19 Tj Najera PA [address] [address] [place] [address] Referring Family Medicine 05/13/22 Georgina Barkley MD [address] [place] [address] Home Parenteral Nutrition Provider Gastroenterology 10/14/23 documented as of this encounter
--- OUTSIDE RECORDS SUMMARY | 2024-09-15 16:37 | XMS_ITS | Encounter Summary ---
Author Organization [facility] Address [address] [place] [address] Care Team Providers Care Yard Clerk Name Role Phone Antelmo Davey MD Unavailable Deacon Valladares MD Unavailable [phone] Shanna June CNP Unavailable [phone] Tj Najera Unavailable [phone] Thomas Alas MD Primary Care Provider [phone] Georgina Barkley MD Unavailable [phone] Source Comments In the event this information is protected by the Federal Confidentiality of Alcohol and Drug AbusePatient Records regulations: The Federal rules restrict any use of the information to criminally investigate or prosecute any alcohol or drug abuse patient.[facility] Encounter Details Date Type Department Care Team (Late st Contact Info) Description 10/30/2023 Patient Msg Gastroenterology [address] [address] Josue Snider DO [address] [place] [address] Regarding your upcoming endoscopy Social History Tobacco Use Types Packs/Day Years Used Date Smoking Tobacco: Never Smokeless Tobacco: Never Alcohol Use Standard Drinks/Week Comments Not Currently 0 (1 standard drink = 0.6 oz pur e alcohol) [facility] Utilities Answer Date Recorded In the [...] often do you attend chur ch or holiness services? 1 to 4 times per year 10/28/2022 Do you belong to any clubs o r organizations such as taoist groups, unions, fraternal or athletic groups, or [...] Answer Date Recorded PHQ-2 score 2 09/27/2023 [facility] [place] of Occupat ional Health - Occupational Stress [...] place to sleep or slept in a [place] health care facility (including now)? No 08/08/2023 Housing Stability Vital [...] were you homeless or living in a [place] health care facility (including now)? No 10/11/2023 Area Deprivation Index Answer Date Nayan rded National Score (1-100), lower number is lower ri sk 64 06/17/2022 State Score (1-10), lower number is lower risk 4 06/17/2022 Data from: https://www.neighborhoodatlas.medicine.[facility].edu/. Last address used for calculation [address] [place] [address] [address] 06/17/2022 Education Answer Date Recorded What is the highest level of school you have completed or the highest degree you have received? Master's degree (e.g., MA, MS, Birgit, MEd, PRESS TENDER STAR SIGNAL, IVANIA) 10/15/2019 Comments No Sex and Gender [...] hearing? Answer Date of Assessment Author No 10/12/2023 12:17 PM EDT Loretta Ceron RN * Are you blind or do you have serious difficulty seeing, even when wearing glasses? Answer Date of Assessment Author No 10/12/2023 12:17 PM EDT Loretta Ceron RN * Do you have serious difficulty walking or climbing stairs? Answer Date of Assessment Author No 10/12/2023 12:17 PM EDT Loretta Ceron RN * Do you have difficulty dressing or bathing? Answer Date of Assessment Author No 10/12/2023 12:17 PM EDT Loretta Ceron RN * Because of a physical, mental, or emotional condition, do you have difficulty doing errands alone such as visiting a doctor's office or shopping? Answer Date of Assessment Author No 10/12/2023 12:17 PM EDT Loretta Ceron RN documented as of this encounter Mental Status * Because of a physical, mental, or emotional condition, do you have serious difficulty concentrating, remembering, or making decisions? 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 History, Rodneyn [address] [place] [address] HPN / PAGE [phone] 09/22/2024 1:00 PM EDT Office Visit Gastroenterology [address] [address] [id number] Georgina Barkley MD [facility] [address] [id number] HPN / PAGE [phone] 09/25/2024 9:00 AM EDT Infusion Center Hematology/Oncology [address] [place] [address] [place] [address] Hodges dressing and cap change;Labs as needed per patient 09/29/2024 10:15 AM EDT Appointment [facility] Endoscopy - ENDO [address] [phone] [place] [address] [place] [address] EGD 10/02/2024 9:00 AM EDT Infusion Center Hematology/Oncology [address] [place] [address] [place] [address] Hodges dressing and cap change;Labs as needed per patient 10/09/2024 9:00 AM EDT Infusion Center Hematology/Oncology [address] [place] [address] [place] [address] Hodges dressing and cap change;Labs as needed per patient documented as of this encounter Visit Diagnoses Not on filedocumented in this encounter Care Teams Yard Clerk Relationship Specialty Start Date End Date Thomas Alas MD [address] [place] [address] PCP - General Family Medicine 07/30/23 Antelmo Davey MD [address] [place] [address] 09/25/19 [place] [address] [place] [address] Consulting General Surgery 09/25/19 Shanna June, BETH [address] [place] [address] Referring Family Medicine 10/19/19 Tj Najera PA [address] [facility] [address] Referring Family Medicine 05/13/22 Georgina Barkley MD [address] [place] [address] Home Parenteral Nutrition Provider Gastroenterology 10/14/23 documented as of this encounter
--- OUTSIDE RECORDS SUMMARY | 2024-09-15 16:37 | XMS_ITS | Encounter Summary ---
Author Organization [facility] Address [address] [place] [address] Care Team Providers Care Field Support Technician Name Role Phone Antelmo Davey MD Unavailable [phone] Deacon Valladares MD Unavailable Shanna June CNP Unavailable [phone] Tj Najera Unavailable [phone] Thomas Alas MD Primary Care Provider [phone] Georgina Barkley MD Unavailable [phone] Source Comments In the event this information is protected by the Federal Confidentiality of Alcohol and Drug AbusePatient Records regulations: The Federal rules restrict any use of the information to criminally investigate or prosecute any alcohol or drug abuse patient.[facility] Encounter Details Date Type Department Care Team (Late st Contact Info) Description 10/17/2023 Get Medical Advice Gastroenterology [address] [address] Georgina Barkley MD [facility] [address] [address] Symptoms Social History Tobacco Use Types Packs/Day Years Used Date Smoking Tobacco: Never Smokeless Tobacco: Never Alcohol Use Standard Drinks/Week Comments Not Currently 0 (1 standard drink = 0.6 oz pur e alcohol) [facility] Utilities Answer Date Recorded In the [...] often do you attend chur ch or jain services? 1 to 4 times per year 10/28/2022 Do you belong to any clubs o r organizations such as episcopal groups, unions, fraternal or athletic groups, or [...] Answer Date Recorded PHQ-2 score 2 09/27/2023 [facility] [place] of Occupat ional Health - Occupational Stress [...] place to sleep or slept in a halfway (including now)? No 08/08/2023 Housing Stability Vital Sign Answer Eugenio e Recorded In the last 12 months, was t here a time when you were not able to pay the mortgage or rent on time? No 10/11/2023 Number of Times Moved in the Last Year Not on fi le 10/11/2023 At any time in the past 12 m [facility], were you homeless or living in a halfway (including now)? No 10/11/2023 Area Deprivation Index Answer Date Nayan rded National Score (1-100), lower number is lower ri sk 64 06/17/2022 State Score (1-10), lower number is lower risk 4 06/17/2022 Data from: https://www.neighborhoodatlas.medicine.[facility].edu/. Last address used for calculation [address] [place] [address] [address] 06/17/2022 Education Answer Date Recorded What is the highest level of school you have completed or the highest degree you have received? Master's degree (e.g., MA, MS, Birgit, MEd, SUPPLY AND DISTRIBUTION MANAGER, IVANIA) 10/15/2019 Comments No Sex and [...] of Assessment Author No 10/12/2023 12:17 PM Loretta Mccain RN documented as of this encounter Mental Status * Because of a physical, mental, or emotional condition, do you have serious difficulty concentrating, remembering, or making decisions? Answer Entry Date Author No 10/12/2023 12:17 PM Loretta Mccain RN documented in this encounter Miscellaneous Notes * Telephone Encounter - Joanne Mcclain RD - 10/19/2023 10:25 AM EDT [facility]'s line placement on Saturday 10/14. [facility] already aware of line placement on Saturday 10/14 and updated catheter in database and faxed PN orders to [facility] for takeover. Awaiting this week's labs. Reccs: - Noted. Await this week's labs Joanne Mcclain RD, LD, CNSC documented in this encounter Plan of Treatment Upcoming Encounters Date Type Department Care Team (Latest Contact Info) Description 09/18/2024 12:30 PM EDT Infusion Center Hematology/Oncology [address] [place] [address] [place] [address] Hodges dressing and cap change;Labs as needed per patient 09/22/2024 12:30 PM EDT Office Visit Gastroenterology [address] [address] Home Health Outreach Coordinator, Hpn [address] [place] [address] HPN / PAGE [phone] 09/22/2024 1:00 PM EDT Office Visit Gastroenterology [address] [address] Georgina Barkley MD [facility] [address] [place] [address] HPN / PAGE [phone] 09/25/2024 9:00 AM EDT Infusion Center Hematology/Oncology [address] [place] [address] [place] [address] Hodges dressing and cap change;Labs as needed per patient 09/29/2024 10:15 AM EDT Appointment [facility] Endoscopy - ENDO [id number] [place] [address] Deacon Valladares MD [address] [place] [address] [id number] EGD 10/02/2024 9:00 AM EDT Infusion Center Hematology/Oncology [address] [place] [address] [place] [address] Hodges dressing and cap change;Labs as needed per patient 10/09/2024 9:00 AM EDT Infusion Center Hematology/Oncology [address] [place] [address] [place] [address] Hodges dressing and cap change;Labs as needed per patient documented as of this encounter Visit Diagnoses Not on filedocumented in this encounter Care Teams Field Support Technician Relationship Specialty Start Date End Date Thomas Alas MD [address] [facility] [place] [address] PCP - General Family Medicine 07/30/23 Antelmo Davey MD [address] [facility] [place] [address] 09/25/19 [place] [address] [place] [address] Consulting General Surgery 09/25/19 Shanna June CNP [address] [place] [address] Referring Family Medicine 10/19/19 Tj Najera PA [address] [place] [address] Referring Family Medicine 05/13/22 Georgina Barkley MD [address] [place] [address] Home Parenteral Nutrition Provider Gastroenterology 10/14/23 documented as of this encounter
--- OUTSIDE RECORDS SUMMARY | 2024-09-15 16:37 | XMS_ITS | Encounter Summary ---
Author Organization [facility] Address [address] [place] [address] Care Team Providers Care Preparation Operator Name Role Phone Antelmo Davey MD Unavailable Deacon Valladares MD Unavailable Shanna June CNP Unavailable [phone] Tj Najera Unavailable [phone] Thomas Alas MD Primary Care Provider [phone] Georgina Barkley MD Unavailable [phone] Source Comments In the event this information is protected by the Federal Confidentiality of Alcohol and Drug AbusePatient Records regulations: The Federal rules restrict any use of the information to criminally investigate or prosecute any alcohol or drug abuse patient.[facility] Encounter Details Date Type Department Care Team (Late st Contact Info) Description 09/08/2023 Patient Msg Gastroenterology [address] [address] Kasie Avalos MD 9500 [place] [address] Appointment Request Social History Tobacco Use Types Packs/Day Years Used Date Smoking Tobacco: Never Smokeless Tobacco: Never Alcohol Use Standard Drinks/Week Comments Not Currently 0 (1 standard drink = 0.6 oz pur e alcohol) [facility] Utilities Answer Date Recorded In [...] often do you attend chur ch or mormon services? 1 to 4 times per year 10/28/2022 Do you belong to any clubs o r organizations such as nondenominational groups, unions, fraternal or athletic groups, or [...] Answer Date Recorded PHQ-2 score 2 07/09/2023 [facility] [place] of Occupat ional Health - Occupational Stress [...] in a fci (including now)? No 08/08/2023 Area Deprivation Index Answer Date Nayan rded National Score (1-100), lower number is lower ri sk 64 06/17/2022 State Score (1-10), lower number is lower risk 4 06/17/2022 Data from: https://www.neighborhoodatlas.medicine.[facility].edu/. Last address used for calculation [address] 06/17/2022 Education Answer Date Recorded What is the highest level of school you have completed or the highest degree you have received? Master's degree (e.g., MA, MS, Birgit, MEd, ADULT DAYCARE COORDINATOR, IVANIA) 10/15/2019 Comments No Sex and [...] Info) Description 09/18/2024 12:30 PM EDT [facility] Center Hematology/Oncology [address] [place] [address] [place] [address] Hodges dressing and cap change;Labs as needed per patient 09/22/2024 12:30 PM EDT Office Visit Gastroenterology [address] [place] [address] [id number] Personnel Associate, Hpn [address] [place] [address] HPN / PAGE [id number] 09/22/2024 1:00 PM EDT Office Visit Gastroenterology [address] [id number] Georgina Barkley MD [facility] [address] [place], [place] [id number] HPN / PAGE [id number] 09/25/2024 9:00 AM EDT Infusion Center Hematology/Oncology [address] [facility] [place] [address] Hodges dressing and cap change;Labs as needed per patient 09/29/2024 10:15 AM EDT Appointment [facility] Endoscopy - ENDO [address] [place] [address] [place] [address] [place] [address] EGD 10/02/2024 9:00 AM EDT Infusion Center Hematology/Oncology [address] [facility] [place] [address] Hodges dressing and cap change;Labs as needed per patient 10/09/2024 9:00 AM EDT Infusion Center Hematology/Oncology [address] [facility] [facility] [place] [address] Hodges dressing and cap change;Labs as needed per patient documented as of this encounter Visit Diagnoses Not on filedocumented in this encounter Care Teams Preparation Operator Relationship Specialty Start Date End Date Thomas Alas MD [address] [place] [address] PCP - General Family Medicine 07/30/23 Antelmo Davey MD [address] [place] [address] 09/25/19 [place] [address] [place] [address] Consulting General Surgery 09/25/19 Shanna June, BETH [address] [place] [address] Referring Family Medicine 10/19/19 Tj Najera PA [address] [place] [address] Referring Family Medicine 05/13/22 Georgina Barkley MD [address] [place] [address] Home Parenteral Nutrition Provider Gastroenterology 10/14/23 documented as of this encounter
--- OUTSIDE RECORDS SUMMARY | 2024-09-15 16:37 | XMS_ITS | Encounter Summary ---
Author Organization [facility] Address [address] [place] [address] Care Team Providers Care Hoistman Name Role Phone Antelmo Davey MD Unavailable Deacon Valladares MD Unavailable [phone] Shanna June CNP Unavailable [phone] Tj Najera Unavailable [phone] Thomas Alas MD Primary Care Provider [phone] Georgina Barkley MD Unavailable [phone] Source Comments In the event this information is protected by the Federal Confidentiality of Alcohol and Drug AbusePatient Records regulations: The Federal rules restrict any use of the information to criminally investigate or prosecute any alcohol or drug abuse patient.[facility] Encounter Details Date Type Department Care Team (Late st Contact Info) Description 10/09/2023 Get Medical Advice [facility]IN [facility] [address] [place] [address] Aryan Ramos MD [address] [place] [address] [place] [address] Worsening symptoms Social History Tobacco Use Types Packs/Day Years [...] How often do you attend chur or mandaeism services? 1 to 4 times per year 10/28/2022 Do you belong to any clubs o r organizations such as judaism groups, unions, fraternal or athletic groups, or [...] Answer Date Recorded PHQ-2 score 2 09/27/2023 [facility] [place] of Occupat ional Health - Occupational Stress [...] place to sleep or slept in a residential (including now)? No 08/08/2023 Housing Stability Vital Sign Answer Eugenio e Recorded In the last 12 months, was t here a time when you were not able to pay the mortgage or rent on time? No 10/11/2023 Number of Times Moved in the Last Year Not on fi le 10/11/2023 At any time in the past 12 m [facility], were you homeless or living in a residential (including now)? No 10/11/2023 Area Deprivation Index Answer Date Nayan rded National Score (1-100), lower number is lower ri sk 64 06/17/2022 State Score (1-10), lower number is lower risk 4 06/17/2022 Data from: https://www.neighborhoodatlas.medicine.[facility].edu/. Last address used for calculation [address] [place] [address] [address] 06/17/2022 Education Answer Date Recorded What is the highest level of school you have completed or the highest degree you have received? Master's degree (e.g., MA, MS, Birgit, MEd, PRESSURE SEALER AND TESTER, IVANIA) 10/15/2019 Comments No Sex and Gender [...] Assessment Author No 08/08/2023 1:03 PM EDT Zaria Whitt RN * Are you blind or [...] 09/18/2024 12:30 PM EDT Infusion Center Hematology/Oncology [address] [place] [address] [place] [address] Carroll dressing and cap change;Labs as needed per patient 09/22/2024 12:30 PM EDT Office Visit Gastroenterology [address] [address] Dinkey Engineer, Rodneyn [address] [place] [address] HPN / PAGE [id number] 09/22/2024 1:00 PM EDT Office Visit Gastroenterology [address] [id number] Georgina Barkley MD [facility] [address] [place] [address] [id number] HPN / PAGE [id number] 09/25/2024 9:00 AM EDT Infusion Center Hematology/Oncology [address] [place] [address] [place] [address] Hodges dressing and cap change;Labs as needed per patient 09/29/2024 10:15 AM EDT Appointment [facility] Endoscopy - ENDO [address] [place] [address] [phone] [place] [address] [address] [address] [id number] EGD 10/02/2024 9:00 AM EDT Infusion Center Hematology/Oncology [address] [place] [address] [place] [address] Hodges dressing and cap change;Labs as needed per patient 10/09/2024 9:00 AM EDT Infusion Center Hematology/Oncology [address] [place] [address] [place] [address] Hodges dressing and cap change;Labs as needed per patient documented as of this encounter Visit Diagnoses Not on filedocumented in this encounter Care Teams Hoistman Relationship Specialty Start Date End Date Thomas Alas MD [address] [place] [address] PCP - General Family Medicine 07/30/23 Antelmo Davey MD [address] [place] [address] 09/25/19 [place] [address] [place] [address] Consulting General Surgery 09/25/19 Shanna June CNP [address] [place] [address] Referring Family Medicine 10/19/19 Tj Najera PA [address] [address] Referring Family Medicine 05/13/22 Georgina Barkley MD [address] [place] [address] Home Parenteral Nutrition Provider Gastroenterology 10/14/23 documented as of this encounter
--- OUTSIDE RECORDS SUMMARY | 2024-09-15 16:37 | XMS_ITS | Encounter Summary ---
Author Organization [facility] Address [address] [place] [address] Care Team Providers Care Cp Bleacher Operator Name Role Phone Antelmo Davey MD Unavailable Deacon Valladares MD Unavailable Shanna June CNP Unavailable [phone] Tj Najera Unavailable [phone] Thomas Alas MD Primary Care Provider [phone] Georgina Barkley MD Unavailable [phone] Source Comments In the event this information is protected by the Federal Confidentiality of Alcohol and Drug AbusePatient Records regulations: The Federal rules restrict any use of the information to criminally investigate or prosecute any alcohol or drug abuse patient.[facility] Encounter Details Date Type Department Care Team (Late st Contact Info) Description 08/22/2023 Patient Msg Dermatology [address] [place] [address] Samara Evans MD [address] [place] [address] Appointment Request Social History Tobacco Use Types Packs/Day Years Used Date Smoking Tobacco: Never Smokeless Tobacco: Never Alcohol Use Standard Drinks/Week Comments Not Currently 0 (1 standard drink = 0.6 oz pur e alcohol) [facility] Utilities Answer Date Recorded In the [...] often do you attend chur ch or congregation services? 1 to 4 times per year 10/28/2022 Do you belong to any clubs o r organizations such as faith groups, unions, fraternal or athletic groups, or [...] Answer Date Recorded PHQ-2 score 2 07/09/2023 [facility] [place] of Occupat ional Health - Occupational Stress [...] place to sleep or slept in a penitentiary (including now)? No 08/08/2023 Area Deprivation Index Answer Date Nayan rded National Score (1-100), lower number is lower ri sk 64 06/17/2022 State Score (1-10), lower number is lower risk 4 06/17/2022 Data from: https://www.neighborhoodatlas.medicine.[facility].edu/. Last address used for calculation [id number] [place] [address] [address] 06/17/2022 Education Answer Date Recorded What is the highest level of school you have completed or the highest degree you have received? Master's degree (e.g., MA, MS, Birgit, MEd, LANGUAGE INTERPRETER, IVANIA) 10/15/2019 Comments No Sex and Gender [...] Contact Info) Description 09/18/2024 12:30 PM EDT [facility] Center Hematology/Oncology [address] [place] [address] [place] [address] Hodges dressing and cap change;Labs as needed per patient 09/22/2024 12:30 PM EDT Office Visit Gastroenterology 2048 [place] [address] Auger Machine Offbearer, Hpn [address] [place] [address] HPN / PAGE [id number] 09/22/2024 1:00 PM EDT Office Visit Gastroenterology [address] [place] [address] [phone] Georgina Barkley MD [facility] [address] [place], [place] [phone] HPN / PAGE [phone] 09/25/2024 9:00 AM EDT Infusion Center Hematology/Oncology [address] [facility] [place] [address] Hodges dressing and cap change;Labs as needed per patient 09/29/2024 10:15 AM EDT Appointment [facility] Endoscopy - ENDO [address] [place] [address] [place] [address] [place] [address] EGD 10/02/2024 9:00 AM EDT Infusion Center Hematology/Oncology [address] [place] [address] Hodges dressing and cap change;Labs as needed per patient 10/09/2024 9:00 AM EDT Infusion Center Hematology/Oncology [address] [place] [address] Hodges dressing and cap change;Labs as needed per patient documented as of this encounter Visit Diagnoses Not on filedocumented in this encounter Care Teams Cp Bleacher Operator Relationship Specialty Start Date End Date Thomas Alas MD [address] [place] [address] PCP - General Family Medicine 07/30/23 Antelmo Davey MD [address] [place] [address] 09/25/[address] [place] [address] [facility] [place] [address] Consulting General Surgery 09/25/19 Shanna June, BETH [address] [place] [address] Referring Family Medicine 10/19/19 Tj Najera PA 112 [facility] [address] [place] [address] Referring Family Medicine 05/13/22 Georgina Barkley MD [address] [place] [address] Home Parenteral Nutrition Provider Gastroenterology 10/14/23 documented as of this encounter
--- OUTSIDE RECORDS SUMMARY | 2024-09-15 16:37 | XMS_ITS | Encounter Summary ---
Author Organization [facility] Address [address] [place] [address] Care Team Providers Care Motion Picture Projectionist Name Role Phone Antelmo Davey MD Unavailable Deacon Valladares MD Unavailable Shanna June CNP Unavailable [phone] Tj Najera Unavailable [phone] Thomas Alas MD Primary Care Provider [phone] Georgina Barkley MD Unavailable [phone] Source Comments In the event this information is protected by the Federal Confidentiality of Alcohol and Drug AbusePatient Records regulations: The Federal rules restrict any use of the information to criminally investigate or prosecute any alcohol or drug abuse patient.[facility] Encounter Details Date Type Department Care Team (Late st Contact Info) Description 08/20/2023 Get Medical Advice General Surgery [address] [place], [place] [phone] [place] [address] [place], [place] [phone] J site Social History Tobacco Use Types Packs/Day Years Used Date Smoking Tobacco: Never Smokeless Tobacco: Never Alcohol Use Standard Drinks/Week Comments Not Currently 0 (1 standard drink = 0.6 oz pur e alcohol) [facility] Utilities Answer Date Recorded In the past [...] often do you attend chur ch or quaker services? 1 to 4 times per year [...] Answer Date Recorded PHQ-2 score 2 07/09/2023 [facility] [place] of Occupat ional Health - Occupational Stress [...] in a halfway (including now)? No 08/08/2023 Area Deprivation Index Answer Date Nayan rded National Score (1-100), lower number is lower ri sk 64 06/17/2022 State Score (1-10), lower number is lower risk 4 06/17/2022 Data from: https://www.neighborhoodatlas.medicine.[facility].edu/. Last address used for calculation [id number] [place] [address] [address] 06/17/2022 Education Answer Date Recorded What is the highest level of school you have completed or the highest degree you have received? Master's degree (e.g., MA, MS, Birgit, MEd, SEAFOOD SPECIALIST, IVANIA) 10/15/2019 Comments No Sex and [...] Info) Description 09/18/2024 12:30 PM EDT [facility] Center Hematology/Oncology [address] [place] [address] [place] [address] Hodges dressing and cap change;Labs as needed per patient 09/22/2024 12:30 PM EDT Office Visit Gastroenterology [address] [id number] Manager Clinical Research, Hpn [address] [place] [address] HPN / PAGE [id number] 09/22/2024 1:00 PM EDT Office Visit Gastroenterology [address] [id number] Georgina Barkley MD [facility] [address] [place], [place] [phone] HPN / PAGE [id number] 09/25/2024 9:00 AM EDT Infusion Center Hematology/Oncology [address] [facility] [place] [address] Hodges dressing and cap change;Labs as needed per patient 09/29/2024 10:15 AM EDT Appointment [facility] Endoscopy - ENDO [address] [place] [address] [place] [address] [place] [address] EGD 10/02/2024 9:00 AM EDT Infusion Center Hematology/Oncology [address] [facility] [place] [address] Hodges dressing and cap change;Labs as needed per patient 10/09/2024 9:00 AM EDT Infusion Center Hematology/Oncology [address] [facility] [place] [address] Hodges dressing and cap change;Labs as needed per patient documented as of this encounter Visit Diagnoses Not on filedocumented in this encounter Care Teams Motion Picture Projectionist Relationship Specialty Start Date End Date Thomas Alas MD [address] [place] [address] PCP - General Family Medicine 07/30/23 Antelmo Davey MD [address] [place] [address] 09/25/19 [place] [address] [place] [address] Consulting General Surgery 09/25/19 Shanna June, BETH [address] [place] [address] Referring Family Medicine 10/19/19 Tj Najera PA [address] [place] [address] Referring Family Medicine 05/13/22 Georgina Barkley MD [address] [place] [address] Home Parenteral Nutrition Provider Gastroenterology 10/14/23 documented as of this encounter
--- OUTSIDE RECORDS SUMMARY | 2024-09-15 16:37 | XMS_ITS | Encounter Summary ---
Author Organization [facility] Address [address] [place] [address] Care Team Providers Care Fireworks Assembly Supervisor Name Role Phone Antelmo Davey MD Unavailable Deacon Valladares MD Unavailable [phone] Shanna uJne CNP Unavailable [phone] Tj Najera Unavailable [phone] Thomas Alas MD Primary Care Provider [phone] Georgina Barkley MD Unavailable [phone] Source Comments In the event this information is protected by the Federal Confidentiality of Alcohol and Drug AbusePatient Records regulations: The Federal rules restrict any use of the information to criminally investigate or prosecute any alcohol or drug abuse patient.[facility] Encounter Details Date Type Department Care Team (Late st Contact Info) Description 10/20/2023 Get Medical Advice General Surgery [address] [place], [place] [phone] [place] [address] [place] [address] Appointment Social History Tobacco Use Types Packs/Day Years Used Date Smoking Tobacco: Never Smokeless Tobacco: Never Alcohol Use Standard Drinks/Week Comments Not Currently 0 (1 standard drink = 0.6 oz pur e alcohol) [facility] Utilities Answer Date Recorded In [...] often do you attend chur ch or sikhism services? 1 to 4 times per year 10/28/2022 Do you belong to any clubs o r organizations such as gnosticism groups, unions, fraternal or athletic groups, or [...] Answer Date Recorded PHQ-2 score 2 09/27/2023 [facility] [place] of Occupat ional Health - Occupational Stress [...] place to sleep or slept in a detention (including now)? No 08/08/2023 Housing Stability Vital Sign Answer Eugenio e Recorded In the last 12 months, was t here a time when you were not able to pay the mortgage or rent on time? No 10/11/2023 Number of Times Moved in the Last Year Not on fi le 10/11/2023 At any time in the past [address] [facility], were you homeless or living in a detention (including now)? No 10/11/2023 Area Deprivation Index Answer Date Nayan rded National Score (1-100), lower number is lower ri sk 64 06/17/2022 State Score (1-10), lower number is lower risk 4 06/17/2022 Data from: https://www.neighborhoodatlas.medicine.[facility].edu/. Last address used for calculation [address] [place] [address] [address] 06/17/2022 Education Answer Date Recorded What is the highest level of school you have completed or the highest degree you have received? Master's degree (e.g., MA, MS, Birgit, MEd, SKIDWAY MAN, IVANIA) 10/15/2019 Comments No Sex and Gender [...] 12:30 PM EDT Infusion Center Hematology/Oncology [address] [place] [address] [place] [address] Carroll dressing and cap change;Labs as needed per patient 09/22/2024 12:30 PM EDT Office Visit Gastroenterology [address] [address] Tower Operator, Rodneyn [address] [place] [address] HPN / PAGE [id number] 09/22/2024 1:00 PM EDT Office Visit Gastroenterology [address] [place] [phone] Georgina Barkley MD [facility] [address] [place] [address] [id number] HPN / PAGE [id number] 09/25/2024 9:00 AM EDT Infusion Center Hematology/Oncology [address] [place] [address] [place] [address] Hodges dressing and cap change;Labs as needed per patient 09/29/2024 10:15 AM EDT Appointment [facility] Endoscopy - ENDO [address] [place] [address] [place] [address] [place] [address] EGD 10/02/2024 9:00 AM EDT Infusion Center Hematology/Oncology [address] [place] [address] [place] [address] Hodges dressing and cap change;Labs as needed per patient 10/09/2024 9:00 AM EDT Infusion Center Hematology/Oncology [address] [place] [address] [place] [address] Hodges dressing and cap change;Labs as needed per patient documented as of this encounter Visit Diagnoses Not on filedocumented in this encounter Care Teams Fireworks Assembly Supervisor Relationship Specialty Start Date End Date Thomas Alas MD [address] [place] [address] PCP - General Family Medicine 07/30/23 Antelmo Davey MD [address] [place] [address] 09/25/19 [place] [address] [place] [address] Consulting General Surgery 09/25/19 Shanna June, BETH [address] [place] [address] Referring Family Medicine 10/19/19 Tj Najera PA 112 [facility] [place] [address] Referring Family Medicine 05/13/22 Georgina Barkley MD [address] [place] [address] Home Parenteral Nutrition Provider Gastroenterology 10/14/23 documented as of this encounter
--- OUTSIDE RECORDS SUMMARY | 2024-09-15 16:37 | XMS_ITS | Encounter Summary ---
Author Organization [facility] Address [address] [place] [address] Care Team Providers Care Rn Teacher Name Role Phone Antelmo Davey MD Unavailable [phone] Deacon Valladares MD Unavailable Shanna June CNP Unavailable [phone] Tj Najera Unavailable [phone] Thomas Alas MD Primary Care Provider [phone] Georgina Barkley MD Unavailable [phone] Source Comments In the event this information is protected by the Federal Confidentiality of Alcohol and Drug AbusePatient Records regulations: The Federal rules restrict any use of the information to criminally investigate or prosecute any alcohol or drug abuse patient.[facility] Encounter Details Date Type Department Care Team (Late st Contact Info) Description 10/20/2023 Patient Msg General Surgery [address] [place] [address] Provider, Ccf 1 PM Virtual Appointment Social History Tobacco Use Types Packs/Day Years Used Date Smoking Tobacco: Never Smokeless Tobacco: Never Alcohol Use Standard Drinks/Week Comments Not Currently 0 (1 standard drink = 0.6 oz pur e alcohol) [facility] Utilities Answer Date Recorded In the past [...] often do you attend chur ch or taoist services? 1 to 4 times per year 10/28/2022 Do you belong to any clubs o r organizations such as worship groups, unions, fraternal or athletic groups, or [...] Answer Date Recorded PHQ-2 score 2 09/27/2023 [facility] of Occupat ional Health - Occupational Stress [...] time in the past [address] [facility], were you homeless or living in a halfway (including now)? No 10/11/2023 Area Deprivation Index Answer Date Nayan rded National Score (1-100), lower number is lower ri sk 64 06/17/2022 State Score (1-10), lower number is lower risk 4 06/17/2022 Data from: https://www.neighborhoodatlas.medicine.[facility].edu/. Last address used for calculation [address] 06/17/2022 Education Answer Date Recorded What is the highest level of school you have completed or the highest degree you have received? Master's degree (e.g., MA, MS, Birgit, MEd, SENIOR COMMISSARY AGENT, IVANIA) 10/15/2019 Comments No Sex and Gender [...] 12:30 PM EDT Infusion Center Hematology/Oncology [address] [place] [address] [place] [address] Hodges dressing and cap change;Labs as needed per patient 09/22/2024 12:30 PM EDT Office Visit Gastroenterology [address] [phone] Kiss Machine Operator, Grupo [address] [place] [address] HPN / PAGE [phone] 09/22/2024 1:00 PM EDT Office Visit Gastroenterology [address] [phone] Georgina Barkley MD [address] [address] HPN / PAGE [id number] 09/25/2024 9:00 AM EDT Infusion Center Hematology/Oncology [address] [place] [address] [place] [address] Hodges dressing and cap change;Labs as needed per patient 09/29/2024 10:15 AM EDT Appointment [facility] Endoscopy - ENDO [address] [place] [address] [place] [address] [place] [address] EGD 10/02/2024 9:00 AM EDT Infusion Center Hematology/Oncology [address] [place] [address] [place] [address] Hodges dressing and cap change;Labs as needed per patient 10/09/2024 9:00 AM EDT Infusion Center Hematology/Oncology [address] [place] [address] [place] [address] Hodges dressing and cap change;Labs as needed per patient documented as of this encounter Visit Diagnoses Not on filedocumented in this encounter Care Teams Rn Teacher Relationship Specialty Start Date End Date Thomas Alas MD [address] [place] [address] PCP - General Family Medicine 07/30/23 Antelmo Davey MD [address] [place] [address] 09/25/[address] [place] [address] [place] [address] Consulting General Surgery 09/25/19 Shanna June CNP [address] [place] [address] Referring Family Medicine 10/19/19 Tj Najera PA [address] [address] Referring Family Medicine 05/13/22 Georgina Barkley MD [address] [place] [address] Home Parenteral Nutrition Provider Gastroenterology 10/14/23 documented as of this encounter
--- OUTSIDE RECORDS SUMMARY | 2024-09-15 16:37 | XMS_ITS | Encounter Summary ---
Author Organization [facility] Address [address] [place] [address] Care Team Providers Care Victim Witness Administrator Name Role Phone Antelmo Davey MD Unavailable Deacon Valladares MD Unavailable Shanna June CNP Unavailable [phone] Tj Najera Unavailable [phone] Thomas Alas MD Primary Care Provider [phone] Georgina Barkley MD Unavailable [phone] Source Comments In the event this information is protected by the Federal Confidentiality of Alcohol and Drug AbusePatient Records regulations: The Federal rules restrict any use of the information to criminally investigate or prosecute any alcohol or drug abuse patient.[facility] Encounter Details Date Type Department Care Team (Late st Contact Info) Description 10/14/2023 [place] [address] Provider, Ccf Important information about your scheduled Allergy and Immunology appointment Social History Tobacco Use Types Packs/Day Years Used Date Smoking Tobacco: Never Smokeless Tobacco: Never Alcohol Use Standard Drinks/Week Comments Not Currently 0 (1 standard drink = 0.6 oz pur e alcohol) [facility] Utilities Answer Date Recorded In the [...] any clubs o r organizations such as anabaptist groups, unions, fraternal or athletic groups, or [...] Answer Date Recorded PHQ-2 score 2 09/27/2023 [facility] of Occupat ional Health - Occupational Stress [...] any time in the past 12 m [facility], were you homeless or living in a jail (including now)? No 10/11/2023 Area Deprivation Index Answer Date Nayan rded National Score (1-100), lower number is lower ri sk 64 06/17/2022 State Score (1-10), lower number is lower risk 4 06/17/2022 Data from: https://www.neighborhoodatlas.medicine.[facility].edu/. Last address used for calculation [id number] [place] [address] [address] 06/17/2022 Education Answer Date Recorded What is the highest level of school you have completed or the highest degree you have received? Master's degree (e.g., MA, MS, Birgit, MEd, CANDY FORMING MACHINE OPERATOR, IVANIA) 10/15/2019 Comments No Sex and [...] Contact Info) Description 09/18/2024 12:30 PM EDT [facility] Center Hematology/Oncology [address] [place] [address] [place] [address] Carroll dressing and cap change;Labs as needed per patient 09/22/2024 12:30 PM EDT Office Visit Gastroenterology [address] [phone] Solar Consultant, Grupo [address] [place] [address] HPN / PAGE [phone] 09/22/2024 1:00 PM EDT Office Visit Gastroenterology [address] [phone] Georgina Barkley MD [facility] [address] [id number] HPN / PAGE [id number] 09/25/2024 9:00 AM EDT Infusion Center Hematology/Oncology [address] [place] [address] [place] [address] Hodges dressing and cap change;Labs as needed per patient 09/29/2024 10:15 AM EDT Appointment [facility] Endoscopy - ENDO [address] [place] [address] [place] [address] [place] [address] EGD 10/02/2024 9:00 AM EDT Infusion Center Hematology/Oncology [address] [place] [address] [place] [address] Hodges dressing and cap change;Labs as needed per patient 10/09/2024 9:00 AM EDT Infusion Center Hematology/Oncology [address] [place] [address] [place] [address] Hodges dressing and cap change;Labs as needed per patient documented as of this encounter Visit Diagnoses Not on filedocumented in this encounter Care Teams Victim Witness Administrator Relationship Specialty Start Date End Date Thomas Alas MD [address] [place] [address] PCP - General Family Medicine 07/30/23 Antelmo Davey MD [address] [place] [address] 09/25/19 [place] [address] [place] [address] Consulting General Surgery 09/25/19 Shanna June CNP [address] [place] [address] Referring Family Medicine 10/19/19 Tj Najera PA [address] [address] Referring Family Medicine 05/13/22 Georgina Barkley MD [address] [place], [place] [phone] Home Parenteral Nutrition Provider Gastroenterology 10/14/23 documented as of this encounter
--- OUTSIDE RECORDS SUMMARY | 2024-09-15 16:37 | XMS_ITS | Encounter Summary ---
Author Organization [facility] Address [address] [place] [address] Care Team Providers Care Latcher Name Role Phone Antelmo Davey MD Unavailable Deacon Valladares MD Unavailable Shanna June CNP Unavailable [phone] Tj Najera Unavailable [phone] Thomas Alas MD Primary Care Provider [phone] Georgina Barkley MD Unavailable [phone] Source Comments In the event this information is protected by the Federal Confidentiality of Alcohol and Drug AbusePatient Records regulations: The Federal rules restrict any use of the information to criminally investigate or prosecute any alcohol or drug abuse patient.[facility] Encounter Details Date Type Department Care Team (Late st Contact Info) Description 10/26/2023 Get Medical Advice General Surgery [address] [place], [place] [id number] [place] [address] [place] [address] Release Social History Tobacco Use Types Packs/Day Years Used Date Smoking Tobacco: Never Smokeless Tobacco: Never Alcohol Use Standard Drinks/Week Comments Not Currently 0 (1 standard drink = 0.6 oz pur e alcohol) [facility] Utilities Answer Date Recorded In [...] often do you attend chur ch or roman catholic services? 1 to 4 times per year 10/28/2022 Do you belong to any clubs o r organizations such as gnosticist groups, unions, fraternal or athletic groups, or [...] Answer Date Recorded PHQ-2 score 2 09/27/2023 [facility] of Occupat ional Health - [...] place to sleep or slept in a alf (including now)? No 08/08/2023 Housing Stability Vital Sign Answer Eugenio e Recorded In the last 12 months, was t here a time when you were not able to pay the mortgage or rent on time? No 10/11/2023 Number of Times Moved in the Last Year Not on fi le 10/11/2023 At any time in the past 12 m [facility], were you homeless or living in a alf (including now)? No 10/11/2023 Area Deprivation Index Answer Date Nayan rded National Score (1-100), lower number is lower ri sk 64 06/17/2022 State Score (1-10), lower number is lower risk 4 06/17/2022 Data from: https://www.neighborhoodatlas.medicine.[facility].edu/. Last address used for calculation [address] [place] [address] RD [address] 06/17/2022 Education Answer Date Recorded What is the highest level of school you have completed or the highest degree you have received? Master's degree (e.g., MA, MS, Birgit, MEd, PING PONG TABLE ASSEMBLER, IVANIA) 10/15/2019 Comments No Sex and Gender [...] of Assessment Author No 10/12/2023 12:17 PM JUNT Loretta Ceron RN documented as of this encounter Mental Status * Because of a physical, mental, or emotional condition, do you have serious difficulty concentrating, remembering, or making decisions? Answer Entry Date Author No 10/12/2023 12:17 PM EDT Loretta Ceron RN documented in this encounter Miscellaneous Notes * Telephone Encounter - Wali Neff - 10/26/2023 1:46 PM EDT Images from the original note were not included. Deacon Valladares MD Browne, Christopher A; Breanna Boyer APRN.[employer]ION[employer] Yes Previous Messages ----- Message ----- From: Wali Neff Sent: 10/26/2023 9:31 AM EDT To: Breanna Boyer APRN.[employer]; Deacon Valladares MD Subject: Upcoming ortho procedure Abbey Little messaged me asking for a release to have knee surgery in November or December. Is she ok to proceed as long as she doesn't have NSAIDs? Thanks Vaughn documented in this encounter Plan of Treatment Upcoming Encounters Date Type Department Care Team (Latest Contact Info) Description 09/18/2024 12:30 PM EDT Infusion Center Hematology/Oncology [address] [place] [address] [place] [address] Hodges dressing and cap change;Labs as needed per patient 09/22/2024 12:30 PM EDT Office Visit Gastroenterology [address] [phone] Manager Fitness, Hpladi [address] [id number] HPN / PAGE [phone] 09/22/2024 1:00 PM EDT Office Visit Gastroenterology [address] [phone] Georgina Barkley MD [address] [id number] HPN / PAGE [id number] 09/25/2024 9:00 AM EDT Infusion Center Hematology/Oncology [address] [place] [address] [place] [address] Hodges dressing and cap change;Labs as needed per patient 09/29/2024 10:15 AM EDT Appointment [facility] Endoscopy - ENDO [address] [place] [address] [place] [address] [place] [address] EGD 10/02/2024 9:00 AM EDT Infusion Center Hematology/Oncology [address] [place], [place] [address] [address] Hodges dressing and cap change;Labs as needed per patient 10/09/2024 9:00 AM EDT Infusion Center Hematology/Oncology [address] [place], [place] [address] [place] [address] Hodges dressing and cap change;Labs as needed per patient documented as of this encounter Visit Diagnoses Not on filedocumented in this encounter Care Teams Latcher Relationship Specialty Start Date End Date Thomas Alas MD [address] [place] [address] PCP - General Family Medicine 07/30/23 Antelmo Davey MD [address] [place] [address] 09/25/19 [place] [address] [place] [address] Consulting General Surgery 09/25/19 Shanna June CNP [address] [place] [address] Referring Family Medicine 10/19/19 Tj Najera PA [address] [address] Referring Family Medicine 05/13/22 Georgina Barkley MD [address] [place] [address] Home Parenteral Nutrition Provider Gastroenterology 10/14/23 documented as of this encounter
--- OUTSIDE RECORDS SUMMARY | 2024-09-15 16:37 | XMS_ITS | Encounter Summary ---
Author Organization [facility] Address [address] [place] [address] Care Team Providers Care Machine I Cutter Name Role Phone Antelmo Davey MD Unavailable Deacon Valladares MD Unavailable [phone] Shanna June CNP Unavailable [phone] Tj Najera Unavailable [phone] Thomas Alas MD Primary Care Provider [phone] Georgina Barkley MD Unavailable [phone] Source Comments In the event this information is protected by the Federal Confidentiality of Alcohol and Drug AbusePatient Records regulations: The Federal rules restrict any use of the information to criminally investigate or prosecute any alcohol or drug abuse patient.[facility] Encounter Details Date Type Department Care Team (Late st Contact Info) Description 08/26/2023 Patient Msg Allergy [address] [place] [address] Provider, Ccf Appointment Social History Tobacco Use Types Packs/Day Years Used Date Smoking Tobacco: Never Smokeless Tobacco: Never Alcohol Use Standard Drinks/Week Comments Not Currently 0 (1 standard drink = 0.6 oz pur e alcohol) [facility] Utilities Answer Date Recorded In the past [...] often do you attend chur ch or zoroastrianism services? 1 to 4 times per year 10/28/2022 Do you belong to any clubs o r organizations such as advent groups, unions, fraternal or athletic groups, or [...] Answer Date Recorded PHQ-2 score 2 07/09/2023 [facility] of Occupat ional Health - Occupational [...] place to sleep or slept in a mcc (including now)? No 08/08/2023 Area Deprivation Index Answer Date Nayan rded National Score (1-100), lower number is lower ri sk 64 06/17/2022 State Score (1-10), lower number is lower risk 4 06/17/2022 Data from: https://www.neighborhoodatlas.medicine.[facility].edu/. Last address used for calculation [address] [place] [address] [address] 06/17/2022 Education Answer Date Recorded What is the highest level of school you have completed or the highest degree you have received? Master's degree (e.g., MA, MS, Birgit, MEd, HEEL CUTTER, IVANIA) 10/15/2019 Comments No Sex and Gender [...] No 08/08/2023 1:03 PM Jania Agustin RN * Are you blind or do [...] 12:30 PM EDT Infusion Center Hematology/Oncology [address] [place] [address] [place] [address] Carroll dressing and cap change;Labs as needed per patient 09/22/2024 12:30 PM EDT Office Visit Gastroenterology [address] [phone] Cereal Maker, Hpn [address] [place] [address] HPN / PAGE [phone] 09/22/2024 1:00 PM EDT Office Visit Gastroenterology [address] [phone] Georgina Barkley MD [facility] [address] [place] [address] HPN / PAGE [id number] 09/25/2024 9:00 AM EDT Infusion Center Hematology/Oncology [address] [place] [address] [place] [address] Hodges dressing and cap change;Labs as needed per patient 09/29/2024 10:15 AM EDT Appointment [facility] Endoscopy - ENDO [address] [phone] [place] [address] [place] [address] EGD 10/02/2024 9:00 AM EDT Infusion Center Hematology/Oncology [address] [place] [address] [place] [address] Hodges dressing and cap change;Labs as needed per patient 10/09/2024 9:00 AM EDT Infusion Center Hematology/Oncology [address] [place] [address] [place] [address] Hodges dressing and cap change;Labs as needed per patient documented as of this encounter Visit Diagnoses Not on filedocumented in this encounter Care Teams Machine I Cutter Relationship Specialty Start Date End Date Thomas Alas MD [address] [place] [address] PCP - General Family Medicine 07/30/23 Antelmo Davey MD [address] [place] [address] 09/25/19 [place] [address] [address] [place] [address] Consulting General Surgery 09/25/19 Shanna June, BETH [address] [place] [address] Referring Family Medicine 10/19/19 Tj Najera PA 112 [facility] [address] [place] [address] Referring Family Medicine 05/13/22 Georgina Barkley MD [address] [place] [address] Home Parenteral Nutrition Provider Gastroenterology 10/14/23 documented as of this encounter
--- OUTSIDE RECORDS SUMMARY | 2024-09-15 16:37 | XMS_ITS | Encounter Summary ---
Author Organization [facility] Address [address] [place] [address] Care Team Providers Care Substance Abuse Services Director Name Role Phone Antelmo Davey MD Unavailable Deacon Valladares MD Unavailable [phone] Shanna June CNP Unavailable [phone] Tj Najera Unavailable [phone] Thomas Alas MD Primary Care Provider [phone] Georgina Barkley MD Unavailable [phone] Source Comments In the event this information is protected by the Federal Confidentiality of Alcohol and Drug AbusePatient Records regulations: The Federal rules restrict any use of the information to criminally investigate or prosecute any alcohol or drug abuse patient.[facility] Encounter Details Date Type Department Care Team (Late st Contact Info) Description 09/02/2023 Patient Msg Gastroenterology [address] [address] Kasie Avalos MD [address]00 [place] [address] pH study Social History Tobacco Use Types Packs/Day Years Used Date Smoking Tobacco: Never Smokeless Tobacco: Never Alcohol Use Standard Drinks/Week Comments Not Currently 0 (1 standard drink = 0.6 oz pur e alcohol) [facility] Utilities Answer Date [...] Answer Date Recorded PHQ-2 score 2 07/09/2023 [facility] [place] of Occupat ional Health - Occupational Stress [...] a nursing home (including now)? No 08/08/2023 Area Deprivation Index Answer Date Nayan rded National Score (1-100), lower number is lower ri sk 64 06/17/2022 State Score (1-10), lower number is lower risk 4 06/17/2022 Data from: https://www.neighborhoodatlas.medicine.[facility].edu/. Last address used for calculation [address] 06/17/2022 Education Answer Date Recorded What is the highest level of school you have completed or the highest degree you have received? Master's degree (e.g., MA, MS, Birgit, MEd, DIRECTOR OF EXHIBITS, IVANIA) 10/15/2019 Comments No Sex and Gender [...] Contact Info) Description 09/18/2024 12:30 PM EDT [facility] Center Hematology/Oncology [address] [place] [address] [place] [address] Hodges dressing and cap change;Labs as needed per patient 09/22/2024 12:30 PM EDT Office Visit Gastroenterology [address] [phone] Ice Cream Vendor, Hpn [address] [place] [address] HPN / PAGE [phone] 09/22/2024 1:00 PM EDT Office Visit Gastroenterology [address] [phone] Georgina Barkley MD [facility] [address] [place], [place] [id number] HPN / PAGE [phone] 09/25/2024 9:00 AM EDT Infusion Center Hematology/Oncology [address] [address] [place] [address] Hodges dressing and cap change;Labs as needed per patient 09/29/2024 10:15 AM EDT Appointment [facility] Endoscopy - ENDO [address] [place] [address] [place] [address] [place] [address] EGD 10/02/2024 9:00 AM EDT Infusion Center Hematology/Oncology [address] [facility] [place] [address] Hodges dressing and cap change;Labs as needed per patient 10/09/2024 9:00 AM EDT Infusion Center Hematology/Oncology [address] [facility] [facility] [place] [address] Hodges dressing and cap change;Labs as needed per patient documented as of this encounter Visit Diagnoses Not on filedocumented in this encounter Care Teams Substance Abuse Services Director Relationship Specialty Start Date End Date Thomas Alas MD [address] [place] [address] PCP - General Family Medicine 07/30/23 Antelmo Davey MD [address] [place] [address] 09/25/19 [place] [address] [place] [address] Consulting General Surgery 09/25/19 Shanna June, BETH [address] [place] [address] Referring Family Medicine 10/19/19 jT Najera PA [address] [place] [address] Referring Family Medicine 05/13/22 Georgina Barkley MD [address] [place] [address] Home Parenteral Nutrition Provider Gastroenterology 10/14/23 documented as of this encounter
--- OUTSIDE RECORDS SUMMARY | 2024-09-15 16:37 | XMS_ITS | Encounter Summary ---
Author Organization [facility] Address [address] [place] [address] Care Team Providers Care Manager Fiber Name Role Phone Antelmo Davey MD Unavailable Deacon Valladares MD Unavailable [phone] Shanna June CNP Unavailable [phone] Tj Najera Unavailable [phone] Thomas Alas MD Primary Care Provider [phone] Georgina Barkley MD Unavailable [phone] Source Comments In the event this information is protected by the Federal Confidentiality of Alcohol and Drug AbusePatient Records regulations: The Federal rules restrict any use of the information to criminally investigate or prosecute any alcohol or drug abuse patient.[facility] Encounter Details Date Type Department Care Team (Late st Contact Info) Description 10/13/2023 Patient Msg Angio [address] [place] [address] Provider, Ccf Pre precedure instructions Social History Tobacco Use Types Packs/Day Years Used Date Smoking Tobacco: Never Smokeless Tobacco: Never Alcohol Use Standard Drinks/Week Comments Not Currently 0 (1 standard drink = 0.6 oz pur e alcohol) [facility] Utilities Answer Date Recorded In [...] often do you attend chur ch or latter-day services? 1 to 4 times per year 10/28/2022 Do you belong to any clubs o r organizations such as amish groups, unions, fraternal or athletic groups, or [...] Answer Date Recorded PHQ-2 score 2 09/27/2023 [employer] of Occupat ional Health - Occupational Stress [...] in a penitentiary (including now)? No 08/08/2023 Housing Stability Vital Sign Answer Eugenio e Recorded In the last 12 months, was t here a time when you were not able to pay the mortgage or rent on time? No 10/11/2023 Number of Times Moved in the Last Year Not on fi le 10/11/2023 At any time in the past 12 m [facility], were you homeless or living in a penitentiary (including now)? No 10/11/2023 Area Deprivation Index Answer Date Nayan rded National Score (1-100), lower number is lower ri sk 64 06/17/2022 State Score (1-10), lower number is lower risk 4 06/17/2022 Data from: https://www.neighborhoodatlas.medicine.[facility].edu/. Last address used for calculation [id number] [place] [address] RD 46 06/17/2022 Education Answer Date Recorded What is the highest level of school you have completed or the highest degree you have received? Master's degree (e.g., MA, MS, Birgit, MEd, TRUCK BENCH MECHANIC, IVANIA) 10/15/2019 Comments No Sex and Gender [...] 09/18/2024 12:30 PM EDT Infusion Center Hematology/Oncology [address] [place] [address] [place] [address] Carroll dressing and cap change;Labs as needed per patient 09/22/2024 12:30 PM EDT Office Visit Gastroenterology [address] [id number] Management Assistant, Grupo [address] [place] [address] HPSanchez / PAGE [id number] 09/22/2024 1:00 PM EDT Office Visit Gastroenterology [address] [id number] Georgina Barkley MD [facility] [address] [place], [place] [id number] HPN / PAGE [id number] 09/25/2024 9:00 AM EDT Infusion Center Hematology/Oncology [address] [place] [address] [place] [address] Hodges dressing and cap change;Labs as needed per patient 09/29/2024 10:15 AM EDT Appointment [facility] Endoscopy - ENDO [address] [place] [address] [place] [address] [place] [address] EGD 10/02/2024 9:00 AM EDT Infusion Center Hematology/Oncology [address] [place] [address] [place] [address] Hodges dressing and cap change;Labs as needed per patient 10/09/2024 9:00 AM EDT Infusion Center Hematology/Oncology [address] [place] [address] [place] [address] Hodges dressing and cap change;Labs as needed per patient documented as of this encounter Visit Diagnoses Not on filedocumented in this encounter Care Teams Manager Fiber Relationship Specialty Start Date End Date Thomas Alas MD [address] [place] [address] PCP - General Family Medicine 07/30/23 Antelmo Davey MD [address] [place] [address] 09/25/19 [place] [address] [place] [address] Consulting General Surgery 09/25/19 Shanna June CNP [address] [facility] [place] [address] Referring Family Medicine 10/19/19 Tj Najera PA [address] [address] Referring Family Medicine 05/13/22 Georgina Barkley MD [address] [place] [address] Home Parenteral Nutrition Provider Gastroenterology 10/14/23 documented as of this encounter
--- OUTSIDE RECORDS SUMMARY | 2024-09-15 16:37 | XMS_ITS | Encounter Summary ---
Author Organization [facility] Address [address] [place] [address] Care Team Providers Care Fire Prevention Chief Name Role Phone Antelmo Davey MD Unavailable Deacon Valladares MD Unavailable Shanna June CNP Unavailable [phone] Tj Najera Unavailable [phone] Thomas Alas MD Primary Care Provider [phone] Georgina Barkley MD Unavailable [phone] Source Comments In the event this information is protected by the Federal Confidentiality of Alcohol and Drug AbusePatient Records regulations: The Federal rules restrict any use of the information to criminally investigate or prosecute any alcohol or drug abuse patient.[facility] Encounter Details Date Type Department Care Team (Late st Contact Info) Description 09/14/2023 Patient Msg Allergy [address] [place] [address] Provider, Ccf Appointments Social History Tobacco Use Types Packs/Day Years Used Date Smoking Tobacco: Never Smokeless Tobacco: Never Alcohol Use Standard Drinks/Week Comments Not Currently 0 (1 standard drink = 0.6 oz pur e alcohol) [facility] Utilities Answer Date Recorded In the [...] often do you attend chur ch or scientologist services? 1 to 4 times per year [...] Answer Date Recorded PHQ-2 score 2 07/09/2023 [facility] of Occupat ional Health - Occupational Stress [...] is lower risk 4 06/17/2022 Data from: https://www.neighborhoodatlas.medicine.[facility].edu/. Last address used for calculation [address] [place] [address] [address] 06/17/2022 Education Answer Date Recorded What is the highest level of school you have completed or the highest degree you have received? Master's degree (e.g., MA, MS, Birgit, MEd, IMMIGRATION SERVICES OFFICER, IVANIA) 10/15/2019 Comments No Sex and Gender [...] 09/18/2024 12:30 PM EDT Infusion Center Hematology/Oncology [address] [place] [address] [place] [address] Carroll dressing and cap change;Labs as needed per patient 09/22/2024 12:30 PM EDT Office Visit Gastroenterology [address] [phone] Health Information Clerk, Hpn [address] [place] [address] HPN / PAGE [id number] 09/22/2024 1:00 PM EDT Office Visit Gastroenterology [address] [phone] Georgina Barkley MD [facility] [address] [place] [address] HPN / PAGE [phone] 09/25/2024 9:00 AM EDT Infusion Center Hematology/Oncology [address] [place] [address] [place] [address] Hodges dressing and cap change;Labs as needed per patient 09/29/2024 10:15 AM EDT Appointment [facility] Endoscopy - ENDO [address] [place] [id number] [place] [address] [place] [address] EGD 10/02/2024 9:00 AM EDT Infusion Center Hematology/Oncology [address] [place] [address] [place] [address] Hodges dressing and cap change;Labs as needed per patient 10/09/2024 9:00 AM EDT Infusion Center Hematology/Oncology [address] [place] [address] [place] [address] Hodges dressing and cap change;Labs as needed per patient documented as of this encounter Visit Diagnoses Not on filedocumented in this encounter Care Teams Fire Prevention Chief Relationship Specialty Start Date End Date Thomas Alas MD [address] [place] [address] PCP - General Family Medicine 07/30/23 Antelmo Davey MD [address] [place] [address] 09/25/19 [place] [address] [facility] [address] [address] Consulting General Surgery 09/25/19 Shanna June, BETH [address] [place] [address] Referring Family Medicine 10/19/19 Tj Najera PA 112 [facility] [address] [place] [address] Referring Family Medicine 05/13/22 Georgina Barkley MD [address] [place] [address] Home Parenteral Nutrition Provider Gastroenterology 10/14/23 documented as of this encounter
--- OUTSIDE RECORDS SUMMARY | 2024-09-15 16:37 | XMS_ITS | Encounter Summary ---
Author Organization [facility] Address [address] [place] [address] Care Team Providers Care Shearing Shed Worker Name Role Phone Antelmo Davey MD Unavailable [phone] Deacon Valladares MD Unavailable Shanna June CNP Unavailable [phone] Tj Najera Unavailable [phone] Thomas Alas MD Primary Care Provider [phone] Georgina Barkley MD Unavailable [phone] Source Comments In the event this information is protected by the Federal Confidentiality of Alcohol and Drug AbusePatient Records regulations: The Federal rules restrict any use of the information to criminally investigate or prosecute any alcohol or drug abuse patient.[facility] Encounter Details Date Type Department Care Team (Late st Contact Info) Description 10/25/2023 Patient Msg Gastroenterology [address] [address] Provider, Ccf Pre-Procedure Instructions for 11/01/23 EGD Social History Tobacco Use Types Packs/Day Years Used Date Smoking Tobacco: Never Smokeless Tobacco: Never Alcohol Use Standard Drinks/Week Comments Not Currently 0 (1 standard drink = 0.6 oz pur e alcohol) [facility] Utilities Answer Date Recorded In the past [...] often do you attend chur ch or scientology services? 1 to 4 times per year 10/28/2022 Do you belong to any clubs o r organizations such as baptism groups, unions, fraternal or athletic groups, or [...] Answer Date Recorded PHQ-2 score 2 09/27/2023 [facility] of Occupat ional Health - Occupational Stress [...] in a care home (including now)? No 08/08/2023 Housing Stability Vital Sign Answer Eugenio e Recorded In the last 12 months, was t here a time when you were not able to pay the mortgage or rent on time? No 10/11/2023 Number of Times Moved in the Last Year Not on fi le 10/11/2023 At any time in the past [address] [facility], were you homeless or living in a care home (including now)? No 10/11/2023 Area Deprivation Index Answer Date Nayan rded National Score (1-100), lower number is lower ri sk 64 06/17/2022 State Score (1-10), lower number is lower risk 4 06/17/2022 Data from: https://www.neighborhoodatlas.medicine.[facility].edu/. Last address used for calculation [address] 06/17/2022 Education Answer Date Recorded What is the highest level of school you have completed or the highest degree you have received? Master's degree (e.g., MA, MS, Birgit, MEd, RN CARDIAC REHAB, IVANIA) 10/15/2019 Comments No Sex and Gender [...] 09/18/2024 12:30 PM EDT Infusion Center Hematology/Oncology [address] [place] [address] [place] [address] Carroll dressing and cap change;Labs as needed per patient 09/22/2024 12:30 PM EDT Office Visit Gastroenterology [address] [phone] Woodyard Crane Operator, Grupo [address] [place] [address] HPSanchez / PAGE [id number] 09/22/2024 1:00 PM EDT Office Visit Gastroenterology [address] [id number] Georgina Barkley MD [address] [phone] HPN / PAGE [phone] 09/25/2024 9:00 AM EDT Infusion Center Hematology/Oncology [address] [place] [address] [place] [address] Hodges dressing and cap change;Labs as needed per patient 09/29/2024 10:15 AM EDT Appointment [facility] Endoscopy - ENDO [address] [place] [address] [place] [address] [place] [address] EGD 10/02/2024 9:00 AM EDT Infusion Center Hematology/Oncology [address] [place] [address] [place] [address] Hodges dressing and cap change;Labs as needed per patient 10/09/2024 9:00 AM EDT Infusion Center Hematology/Oncology [address] [place] [address] [place] [address] Hodges dressing and cap change;Labs as needed per patient documented as of this encounter Visit Diagnoses Not on filedocumented in this encounter Care Teams Shearing Shed Worker Relationship Specialty Start Date End Date Thomas Alas MD [address] [place] [address] PCP - General Family Medicine 07/30/23 Antelmo Davey MD [address] [place] [address] 09/25/[address] [place] [address] [facility] [facility] [place] [place] [address] Consulting General Surgery 09/25/19 Shanna June, BETH [address] [place] [address] Referring Family Medicine 10/19/19 Tj Najera PA 112 [facility] 150 [place] [address] Referring Family Medicine 05/13/22 Georgina Barkley MD [address] [place] [address] Home Parenteral Nutrition Provider Gastroenterology 10/14/23 documented as of this encounter
--- OUTSIDE RECORDS SUMMARY | 2024-09-15 16:37 | XMS_ITS | Encounter Summary ---
Author Organization [facility] Address [facility] [place] [address] Care Team Providers Care Corrections Caseworker Name Role Phone Antelmo Davey MD Unavailable Deacon Valladares MD Unavailable Shanna June [employer]DLE SCHOOL FRENCH TEACHER Unavailable [phone] Tj Najera Unavailable Thomas Alas MD Primary Care Provider [phone] Georgina Barkley MD Unavailable [phone] Source Comments In the event this information is protected by the Federal Confidentiality of Alcohol and Drug AbusePatient Records regulations: The Federal rules restrict any use of the information to criminally investigate or prosecute any alcohol or drug abuse patient.[facility] Encounter Details Date Type Department Care Team (Late st Contact Info) Description 10/20/2023 Get Medical Advice General Surgery [address] [place], [place] 5138511 Breanna Boyer APRN.M[employer] SCHOOL FRENCH TEACHER [address] [place] [address] Video error Social History Tobacco Use Types Packs/Day Years Used Date Smoking Tobacco: Never Smokeless Tobacco: Never Alcohol Use Standard Drinks/Week Comments Not Currently 0 (1 standard drink = 0.6 oz pur e alcohol) [facility] Utilities Answer Date Recorded In the [...] any clubs o r organizations such as christianity groups, unions, fraternal or athletic groups, or [...] Answer Date Recorded PHQ-2 score 2 09/27/2023 [facility] of Occupat ional Health - Occupational Stress [...] place to sleep or slept in a senior care (including now)? No 08/08/2023 Housing Stability Vital Sign Answer Eugenio e Recorded In the last 12 months, was t here a time when you were not able to pay the mortgage or rent on time? No 10/11/2023 Number of Times Moved in the Last Year Not on fi le 10/11/2023 At any time in the past 12 m [facility], were you homeless or living in a senior care (including now)? No 10/11/2023 Area Deprivation Index Answer Date Nayan rded National Score (1-100), lower number is lower ri sk 64 06/17/2022 State Score (1-10), lower number is lower risk 4 06/17/2022 Data from: https://www.neighborhoodatlas.medicine.[facility].edu/. Last address used for calculation [address] [place] [address] RD 46 06/17/2022 Education Answer Date Recorded What is the highest level of school you have completed or the highest degree you have received? Master's degree (e.g., MA, MS, Birgit, MEd, MASTER COOK, IVANIA) 10/15/2019 Comments No Sex and Gender [...] 09/18/2024 12:30 PM EDT Infusion Center Hematology/Oncology [address] [place] [address] [place] [address] Carroll dressing and cap change;Labs as needed per patient 09/22/2024 12:30 PM EDT Office Visit Gastroenterology [address] [address] Foreign Banknote Teller Trader, Rodneyn [address] [place] [address] HPN / PAGE [id number] 09/22/2024 1:00 PM EDT Office Visit Gastroenterology [address] [phone] Georgina Barkley MD [facility] [address] [id number] HPN / PAGE [phone] 09/25/2024 9:00 AM EDT Infusion Center Hematology/Oncology [address] [place] [address] [place] [address] Hodges dressing and cap change;Labs as needed per patient 09/29/2024 10:15 AM EDT Appointment [facility] Endoscopy - ENDO [address] [phone] [place] [address] [place] [address] EGD 10/02/2024 9:00 AM EDT Infusion Center Hematology/Oncology [address] [place] [address] [place] [address] Hodges dressing and cap change;Labs as needed per patient 10/09/2024 9:00 AM EDT Infusion Center Hematology/Oncology [address] [place] [address] [place] [address] Hodges dressing and cap change;Labs as needed per patient documented as of this encounter Visit Diagnoses Not on filedocumented in this encounter Care Teams Corrections Caseworker Relationship Specialty Start Date End Date Thomas Alas MD [address] [place] [address] PCP - General Family Medicine 07/30/23 Antelmo Davey MD [address] [place] [address] 09/25/19 [place] [address] [place] [address] Consulting General Surgery 09/25/19 Shanna June CNP [address] [place] [address] Referring Family Medicine 10/19/19 Tj Najera PA 112 [facility] 150 [place] [address] Referring Family Medicine 05/13/22 Georgina Barkley MD [address] [place] [address] Home Parenteral Nutrition Provider Gastroenterology 10/14/23 documented as of this encounter
--- OUTSIDE RECORDS SUMMARY | 2024-09-15 16:37 | XMS_ITS | Encounter Summary ---
Author Organization [facility] Address [address] [place] [address] Care Team Providers Care Insurance Sales Specialist Name Role Phone Antelmo Davey MD Unavailable [phone] Deacon Valladares MD Unavailable [phone] Shanna June CNP Unavailable [phone] Tj Najera Unavailable [phone] Thomas Alas MD Primary Care Provider [phone] Georgina Barkley MD Unavailable [phone] Source Comments In the event this information is protected by the Federal Confidentiality of Alcohol and Drug AbusePatient Records regulations: The Federal rules restrict any use of the information to criminally investigate or prosecute any alcohol or drug abuse patient.[facility] Encounter Details Date Type Department Care Team (Late st Contact Info) Description 09/21/2023 Get Medical Advice Gastroenterology [address] [address] Kasie Avalos MD [address]00 [place] [address] Symptoms Social History Tobacco Use Types Packs/Day Years Used Date Smoking Tobacco: Never Smokeless Tobacco: Never Alcohol Use Standard Drinks/Week Comments Not Currently 0 (1 standard drink = 0.6 oz pur e alcohol) [facility] Utilities Answer Date Recorded In the [...] often do you attend chur ch or synagogue services? 1 to 4 times per year [...] Answer Date Recorded PHQ-2 score 2 07/09/2023 [facility] of Occupat ional Health - Occupational Stress [...] is lower risk 4 06/17/2022 Data from: https://www.neighborhoodatlas.[facility].edu/. Last address used for calculation [address] 06/17/2022 Education Answer Date Recorded What is the highest level of school you have completed or the highest degree you have received? Master's degree (e.g., MA, MS, Birgit, MEd, MANAGER OF RADIOLOGY, IVANIA) 10/15/2019 Comments No Sex and Gender [...] 09/18/2024 12:30 PM EDT Infusion Center Hematology/Oncology [address] [place] [address] [place] [address] Hodges dressing and cap change;Labs as needed per patient 09/22/2024 12:30 PM EDT Office Visit Gastroenterology [address] [id number] Adult High School Instructor, Hpn [address] [place] [address] HPN / PAGE [phone] 09/22/2024 1:00 PM EDT Office Visit Gastroenterology [address] [phone] Georgina Barkley MD [facility] [address] [place], [place] 6266306 HPN / PAGE [phone] 09/25/2024 9:00 AM EDT Infusion Center Hematology/Oncology [address] [facility] [place] [address] Hodges dressing and cap change;Labs as needed per patient 09/29/2024 10:15 AM EDT Appointment [facility] Endoscopy - ENDO [address] [place] [address] [place] [address] [place] [address] EGD 10/02/2024 9:00 AM EDT Infusion Center Hematology/Oncology [address] [facility] [place] [address] Hodges dressing and cap change;Labs as needed per patient 10/09/2024 9:00 AM EDT Infusion Center Hematology/Oncology [address] [facility] [place] [address] Hodges dressing and cap change;Labs as needed per patient documented as of this encounter Visit Diagnoses Not on filedocumented in this encounter Care Teams Insurance Sales Specialist Relationship Specialty Start Date End Date Thomas Alas MD [address] [place] [address] PCP - General Family Medicine 07/30/23 Antelmo Davey MD [address] [place] [address] 09/25/19 [place] [address] [place] [address] Consulting General Surgery 09/25/19 Shanna June, BETH [address] [place] [place] [address] Referring Family Medicine 10/19/19 Tj Najera PA [address] [place] [address] Referring Family Medicine 05/13/22 Georgina Barkley MD [address] [place] [address] Home Parenteral Nutrition Provider Gastroenterology 10/14/23 documented as of this encounter
--- OUTSIDE RECORDS SUMMARY | 2024-09-15 16:37 | XMS_ITS | Encounter Summary ---
Author Organization Address [address] [place] [address] Care Team Providers Care Student Counselor Name Role Phone Antelmo Davey MD Unavailable [phone] Deacon Valladares MD Unavailable [phone] Shanna June CNP Unavailable [phone] Tj Najera Unavailable [phone] Thomas Alas MD Primary Care Provider [phone] Georgina Barkley MD Unavailable [phone] Source Comments In the event this information is protected by the Federal Confidentiality of Alcohol and Drug AbusePatient Records regulations: The Federal rules restrict any use of the information to criminally investigate or prosecute any alcohol or drug abuse patient. Encounter Details Date Type Department Care Team (Late st Contact Info) Description 11/01/2023 Get Medical Advice Gastroenterology [address] [address] Georgina Barkley MD [facility] [address] [address] OBGYN Social History Tobacco Use Types Packs/Day Years [...] often do you attend chur ch or baptism services? 1 to 4 times per year 10/28/2022 Do you belong to any clubs o r organizations such as temple groups, unions, fraternal [...] Answer Date Recorded PHQ-2 score 2 09/27/2023 [facility] [place] of Occupat ional Health - Occupational Stress [...] any time in the past 12 m [facility], were you homeless or living in a alf (including now)? No 10/11/2023 Area Deprivation Index Answer Date Nayan rded National Score (1-100), lower number is lower ri sk 64 06/17/2022 State Score (1-10), lower number is lower risk 4 06/17/2022 Data from: https://www.neighborhoodatlas.medicine.[facility].edu/. Last address used for calculation [address] [place] [address] RD 46 06/17/2022 Education Answer Date Recorded What is the highest level of school you have completed or the highest degree you have received? Master's degree (e.g., MA, MS, Birgit, MEd, SHOW HOST/HOSTESS, IVANIA) 10/15/2019 Comments No Sex and Gender [...] 09/18/2024 12:30 PM EDT Infusion Center Hematology/Oncology [address] [place] [address] [place] [address] Carroll dressing and cap change;Labs as needed per patient 09/22/2024 12:30 PM EDT Office Visit Gastroenterology [address] [address] Manager Of Development, Hpn [address] [place] [address] HPN / PAGE [id number] 09/22/2024 1:00 PM EDT Office Visit Gastroenterology [address] [place] [id number] Georgina Barkley MD [facility] [address] [place] [id number] HPN / PAGE [id number] 09/25/2024 9:00 AM EDT Infusion Center Hematology/Oncology [address] [place] [address] [place] [address] Hodges dressing and cap change;Labs as needed per patient 09/29/2024 10:15 AM EDT Appointment [facility] Endoscopy - ENDO [address] [place] [id number] [place] [address] [place] [address] EGD 10/02/2024 9:00 AM EDT Infusion Center Hematology/Oncology [address] [place] [address] [place] [address] Hodges dressing and cap change;Labs as needed per patient 10/09/2024 9:00 AM EDT Infusion Center Hematology/Oncology [address] [place] [address] [place] [address] Hodges dressing and cap change;Labs as needed per patient documented as of this encounter Visit Diagnoses Not on filedocumented in this encounter Care Teams Student Counselor Relationship Specialty Start Date End Date Thomas Alas MD [address] [place] [address] PCP - General Family Medicine 07/30/23 Antelmo Davey MD [address] [place] [address] 09/25/19 [place] [address] [place] [address] Consulting General Surgery 09/25/19 Shanna June CNP [address] [place] [address] Referring Family Medicine 10/19/19 Tj Najera PA [address] [address] Referring Family Medicine 05/13/22 Georgina Barkley MD [address] [place] [address] Home Parenteral Nutrition Provider Gastroenterology 10/14/23 documented as of this encounter
--- OUTSIDE RECORDS SUMMARY | 2024-09-15 16:37 | XMS_ITS | Encounter Summary ---
Author Organization [facility] Address [address] [place] [address] Care Team Providers Care Topstitcher Zigzag Name Role Phone Antelmo Davey MD Unavailable Deacon Valladares MD Unavailable Shanna June CNP Unavailable [phone] Tj Najera Unavailable [phone] Thomas Alas MD Primary Care Provider [phone] Georgina Barkley MD Unavailable [phone] Source Comments In the event this information is protected by the Federal Confidentiality of Alcohol and Drug AbusePatient Records regulations: The Federal rules restrict any use of the information to criminally investigate or prosecute any alcohol or drug abuse patient.[facility] Encounter Details Date Type Department Care Team (Late st Contact Info) Description 08/24/2023 Get Medical Advice Dermatology [address] [place] [address] Samara Evans MD [address] [place] [address] Swelling and Rash Social History Tobacco Use Types Packs/Day Years Used Date Smoking Tobacco: Never Smokeless Tobacco: Never Alcohol Use Standard Drinks/Week Comments Not Currently 0 (1 standard drink = 0.6 oz pur e alcohol) [facility] Utilities Answer Date Recorded In the [...] do you attend chur or worship services? 1 to 4 times per year [...] Answer Date Recorded PHQ-2 score 2 07/09/2023 [facility] [place] of Occupat ional Health - Occupational Stress [...] risk 4 06/17/2022 Data from: https://www.neighborhoodatlas.medicine.[facility].edu/. Last address used for calculation [id number] [place] [address] RD 46 06/17/2022 Education Answer Date Recorded What is the highest level of school you have completed or the highest degree you have received? Master's degree (e.g., MA, MS, Birgit, MEd, HEEL LAYER, IVANIA) 10/15/2019 Comments No Sex and Gender [...] Contact Info) Description 09/18/2024 12:30 PM EDT [facility] Center Hematology/Oncology [address] [place] [address] [place] [address] Hodges dressing and cap change;Labs as needed per patient 09/22/2024 12:30 PM EDT Office Visit Gastroenterology [address] [place] [id number] Measurement Coordinator, Hpn [address] [place] [address] HPN / PAGE [phone] 09/22/2024 1:00 PM EDT Office Visit Gastroenterology [address] [address] Georgina Barkley MD [facility] [address] [place], [place] [phone] HPN / PAGE [phone] 09/25/2024 9:00 AM EDT Infusion Center Hematology/Oncology [address] [place] [address] Hodges dressing and cap change;Labs as needed per patient 09/29/2024 10:15 AM EDT Appointment [facility] Endoscopy - ENDO [address] [place] [address] [place] [address] [place] [address] EGD 10/02/2024 9:00 AM EDT Infusion Center Hematology/Oncology [address] [place] [address] Hodges dressing and cap change;Labs as needed per patient 10/09/2024 9:00 AM EDT Infusion Center Hematology/Oncology [address] [place] [address] Hodges dressing and cap change;Labs as needed per patient documented as of this encounter Visit Diagnoses Diagnosis Facial swelling- Primary Swelling, mass, or lump in head and neck documented in this encounter Care Teams Topstitcher Zigzag Relationship Specialty Start Date End Date Thomas Alas MD [address] [place] [address] PCP - General Family Medicine 07/30/23 Antelmo Davey MD [address] [place] [address] 09/25/19 [place] [address] [place] [address] Consulting General Surgery 09/25/19 Shanna June CNP [address] [place] [address] Referring Family Medicine 10/19/19 Tj Najera PA [address] [facility] [address] [place] [address] Referring Family Medicine 05/13/22 Georgina Barkley MD [address] [place] [address] Home Parenteral Nutrition Provider Gastroenterology 10/14/23 documented as of this encounter
--- OUTSIDE RECORDS SUMMARY | 2024-09-15 16:37 | XMS_ITS | Encounter Summary ---
Author Organization [facility] Address [address] [place] [address] Care Team Providers Care Nursery Nurse Name Role Phone Anna Mendez [employer] FACTORY WORKER Unavailable Unallocated, Noms Provider Primary Care Provi pako Thomas Alas MD Primary Care Provider [phone] Encounter Details Date Type Department Care Team (Late st Contact Info) Description 10/29/2023 Abstract [facility] OBGYN [address] [place] [address] Vero Medeiros LPN [address] [id number] Social History Tobacco Use Types Packs/Day Years [...] on filedocumented in this encounter Care Teams Nursery Nurse Relationship Specialty Start Date End Date Unallocated, [place] [address] PCP - General 07/23/22 12/13/23 Thomas Alas MD [address] [place] [address] PCP - General Family Medicine 12/14/23 Anna Mendez NP [address] [place] [address] Referring Physician Family Medicine 07/23/22 documented as of this encounter
--- OUTSIDE RECORDS SUMMARY | 2024-09-15 16:37 | XMS_ITS | Clinical Summary ---
Author Organization [facility] Address [address] [place] [address] Care Team Providers Care Dandy Operator Name Role Phone Anna Mendez ASSEMBLER TRIM Unavailable Thomas Alas MD Primary Care Provider [phone] Allergies Active Allergy Reactions Criticality Noted Date [...] 06/09/19 23 Active Lancets (OneTouch Delica Plus Ekflgl25D) misc USE TO TEST BLOOD SUGAR TWICE [...] Hypertensive disorder 09/13/2017 39 weeks gestation of ([facility]) 2016 Polycystic ovaries 10/02/2013 Asthma without status [...] Cedrick Kraus Maternal Grandmother Erica Kraus Mother Ejssica Artino Alive Paternal Grandfather Elan Artino Paternal [...] Health Maintenance Insurance [employer] Care Teams Dandy Operator Relationship Specialty Start Date End Date Thomas Alas MD [address] [place] [address] PCP - General Family Medicine 12/14/23 Anna Mendez NP [address] [place] [address] Referring Physician Family Medicine 07/23/22
--- OUTSIDE RECORDS SUMMARY | 2024-09-15 16:37 | XMS_ITS | Encounter Summary ---
Author Organization [facility] Address [address] [place] [address] Care Team Providers Care Nutrition Program Instructor Name Role Phone Antelmo Davey MD Unavailable Deacon Valladares MD Unavailable Shanna June CNP Unavailable [phone] Tj Najera Unavailable [phone] Thomas Alas MD Primary Care Provider [phone] Georgina Barkley MD Unavailable [phone] Source Comments In the event this information is protected by the Federal Confidentiality of Alcohol and Drug AbusePatient Records regulations: The Federal rules restrict any use of the information to criminally investigate or prosecute any alcohol or drug abuse patient.[facility] Encounter Details Date Type Department Care Team (Late st Contact Info) Description 09/16/2023 Get Medical Advice General Surgery [address] [place], [place] [phone] [place] [address] [place], [place] [phone] Symptoms Social History Tobacco Use Types Packs/Day Years Used Date Smoking Tobacco: Never Smokeless Tobacco: Never Alcohol Use Standard Drinks/Week Comments Not Currently 0 (1 standard drink = 0.6 oz pur e alcohol) [facility] Utilities Answer Date Recorded In the [...] often do you attend chur ch or baptist services? 1 to 4 times per year [...] score 2 07/09/2023 [facility] [place] of Occupat ional Health - Occupational Stress [...] is lower risk 4 06/17/2022 Data from: https://www.neighborhoodatlas.medicine.[facility].edu/. Last address used for calculation [address] 46 06/17/2022 Education Answer Date Recorded What is the highest level of school you have completed or the highest degree you have received? Master's degree (e.g., MA, MS, Birgit, MEd, PRODUCT APPLICATIONS ENGINEER, IVANIA) 10/15/2019 Comments No Sex and Gender [...] Jania Whitt RN documented in this encounter Miscellaneous Notes * Telephone Encounter - Wali Neff - 09/16/2023 3:00 PM EDT Phoned patient to discuss moving surgery date up to 10/06. Patient is agreeable. Patient also requested pre-op appointment moved up to 09/19. Schedulers notified. Wali Neff LIME KILN OPERATOR Reed Polisher for Dr. Valladares documented in this encounter Plan of Treatment Upcoming Encounters Date Type Department Care Team (Latest Contact Info) Description 09/18/2024 12:30 PM EDT [facility] Center Hematology/Oncology [address] [place] [address] [place] [address] Hodges dressing and cap change;Labs as needed per patient 09/22/2024 12:30 PM EDT Office Visit Gastroenterology [address] [address] Assembler And Tester Electronics, Hpn [address] [place] [address] HPN / PAGE [phone] 09/22/2024 1:00 PM EDT Office Visit Gastroenterology [address] [address] Georgina Barkley MD [facility] [address] [address] HPN / PAGE [phone] 09/25/2024 9:00 AM EDT Infusion Center Hematology/Oncology [address] [place] [address] [place] [address] Hodges dressing and cap change;Labs as needed per patient 09/29/2024 10:15 AM EDT Appointment [facility] Endoscopy - ENDO [id number] [place] [address] [place] [id number] [place], [place] [id number] EGD 10/02/2024 9:00 AM EDT Infusion Center Hematology/Oncology [address] [place] [address] [place] [address] Hodges dressing and cap change;Labs as needed per patient 10/09/2024 9:00 AM EDT Infusion Center Hematology/Oncology [address] [place] [address] [place] [address] Hodges dressing and cap change;Labs as needed per patient documented as of this encounter Visit Diagnoses Not on filedocumented in this encounter Care Teams Nutrition Program Instructor Relationship Specialty Start Date End Date Thomas Alas MD [address] [place] [address] PCP - General Family Medicine 07/30/23 Antelmo Davey MD [address] [place] [address] 09/25/19 [place] [address] [place] [address] Consulting General Surgery 09/25/19 Shanna June, BETH [address] [place] [address] Referring Family Medicine 10/19/19 Tj Najera PA [address] [address] Referring Family Medicine 05/13/22 Georgina Barkley MD [address] [place] [address] Home Parenteral Nutrition Provider Gastroenterology 10/14/23 documented as of this encounter
--- OUTSIDE RECORDS SUMMARY | 2024-09-15 16:38 | XMS_ITS | Encounter Summary ---
Author Organization [facility] Address [address] [place], [place] [address] Care Team Providers Care Sheet Mill Supervisor Name Role Phone TiffanieMarcos DO Primary Care Provider [phone] Antelmo Davey MD Unavailable [phone] Deacon Valladares MD Unavailable [phone] Shanna June CNP Unavailable [phone] Shanna June HOT TOP LINER Primary Care Provider [phone] Rachel Foley MD Primary Care Provider [phone] Tj Najera Unavailable [phone] Anna Mendez APRN.HOT TOP LINER Primary Care Provider Thmoas Alas MD Primary Care Provider + Georgina Barkley MD Unavailable [phone] Source Comments In the event this information is protected by the Federal Confidentiality of Alcohol and Drug AbusePatient Records regulations: The Federal rules restrict any use of the information to criminally investigate or prosecute any alcohol or drug abuse patient.[facility] Encounter Details Date Type Department Care Team (Late st Contact Info) Description 11/28/2019 Get Medical Advice General Surgery 9300 [place], [place] [phone] Maricruz Thorne, COMPUTER MECHANIC.REBRANDER [address] [place], [place] [phone] RE: Test Result Question Social History Tobacco Use Types Packs/Day Years [...] all 10/15/2019 PHQ-2 Answer Date Recorded PHQ-2 Score 2 10/23/2019 Hunger Vital Sign Answer Date Recorded Within [...] things needed for daily living? No 10/15/2019 Education Answer Date Recorded What is the highest level of school you have completed or the highest degree you have received? Master's degree (e.g., MA, MS, Birgit, MEd, TIMBER ROBBER, IVANIA) 10/15/2019 Comments Unknown Sex and Gender Information Value [...] or suspected to have Coronavirus / COVID-19? Unable to assess 11/15/2019 12:52 PM EDT documented as of this encounter Functional Status * Are you deaf or do you have serious difficulty hearing? Answer Date of Assessment Author No 10/17/2019 11:21 AM Kelly Rees RN * Are you blind or do you have serious difficulty seeing, even when wearing glasses? Answer Date of Assessment Author No 10/17/2019 11:21 AM Kelly Rees RN * Do you have serious difficulty walking or climbing stairs? Answer Date of Assessment Author No 10/17/2019 11:21 AM Kelly Rees RN * Do you have difficulty dressing or bathing? Answer Date of Assessment Author No 10/17/2019 11:21 AM Kelly Rees RN * Because of a physical, mental, or emotional condition, do you have difficulty doing errands alone such as visiting a doctor's office or shopping? Answer Date of Assessment Author No 10/17/2019 11:21 AM Kelly Rees RN documented as of this encounter Mental Status * Because of a physical, mental, or emotional condition, do you have serious difficulty concentrating, remembering, or making decisions? Answer Entry Date Author No 10/17/2019 11:21 AM Kelly Rees RN documented in this encounter Plan of Treatment Upcoming Encounters Date Type Department Care Team (Latest Contact Info) Description 09/18/2024 12:30 PM EDT [facility] Center Hematology/Oncology [address] [place] [address] [place] [address] Hodges dressing and cap change;Labs as needed per patient 09/22/2024 12:30 PM EDT Office Visit Gastroenterology 2048 [place] [address] Adjunct Faculty Mathematics Department, Hpn [address] [place] [address] HPN / PAGE [phone] 09/22/2024 1:00 PM EDT Office Visit Gastroenterology [address] [place] [id number] Georgina Barkley MD [facility] [address] [place] [address] HPN / PAGE [phone] 09/25/2024 9:00 AM EDT Infusion Center Hematology/Oncology [address] [place] [address] [place] [address] Hodges dressing and cap change;Labs as needed per patient 09/29/2024 10:15 AM EDT Appointment [facility] Endoscopy - ENDO [address] [place] [address] [place] [address] [place] [address] EGD 10/02/2024 9:00 AM EDT Infusion Center Hematology/Oncology [address] [place] [address] [place] [address] Hodges dressing and cap change;Labs as needed per patient 10/09/2024 9:00 AM EDT Infusion Center Hematology/Oncology [address] [place] [address] [place] [address] Hodges dressing and cap change;Labs as needed [...] documented as of this encounter Care Teams Sheet Mill Supervisor Relationship Specialty Start Date End Date Marcos Moreno DO [address] [place], [place] [address] [address] PCP - General Pairer Substandard 09/25/19 01/30/20 Shanna June CNP [address] [place] [address] PCP - General Family Medicine 01/31/20 01/18/22 Rachel Foley MD [address] [place] [address] PCP - General Family Medicine 01/19/22 06/15/22 Anna Mendez APRN.HOT TOP LINER [address] [address] PCP - General 06/16/22 07/29/23 Thomas Alas MD [address] [place] [address] PCP - General Family Medicine 07/30/23 Antelmo Davey MD [address] [place] [address] 09/25/19 [place] [address] [place] [address] Consulting General Surgery 09/25/19 Shanna June CNP [address] [place] [address] Referring Family Medicine 10/19/19 Tj Najera PA [address] [address] Referring Family Medicine 05/13/22 Georgina Barkley MD [address] [place] [phone] Home Parenteral Nutrition Provider Gastroenterology 10/14/23 documented as of this encounter
--- OUTSIDE RECORDS SUMMARY | 2024-09-15 16:38 | XMS_ITS | Encounter Summary ---
Author Organization [facility] Address [address] [place] [address] Care Team Providers Care Cone Runner Name Role Phone Antelmo Davey MD Unavailable [phone] Deacon Valladares MD Unavailable [phone] Shanna June ELEMENTARY SCHOOL SCIENCE TEACHER Unavailable [phone] Rachel Foley MD Primary Care Provider [phone] Tj Najera Unavailable [phone] Anna Mendez APRN.[facility] Primary Care Provider Thomas Alas MD Primary Care Provider + Georgina Barkley MD Unavailable [phone] Source Comments In the event this information is protected by the Federal Confidentiality of Alcohol and Drug AbusePatient Records regulations: The Federal rules restrict any use of the information to criminally investigate or prosecute any alcohol or drug abuse patient.[facility] Encounter Details Date Type Department Care Team (Late st Contact Info) Description 06/11/2022 Get Medical Advice BMI [facility] REJ [address] [place] [address] [place] [address] [place], [place] [id number] Left Kidney pain and pouch pain Social History Tobacco Use Types Packs/Day Years [...] PHQ-2 Answer Date Recorded PHQ-2 score 2 03/24/2022 Hunger Vital Sign Answer Date Recorded Within [...] lower number is lower ri sk 58 03/02/2022 State Score (1-10), lower number is lower risk N ot on file 03/02/2022 Data from: https://www.neighborhoodatlas.medicine.[facility].edu/. Last address used for calculation [address] 03/02/2022 Education Answer Date Recorded What is the highest level of school you have completed or the highest degree you have received? Master's degree (e.g., MA, MS, Birgit, MEd, BIOFUELS MANAGER, IVANIA) 10/15/2019 Comments No Sex and [...] of Assessment Author No 12/25/2020 6:09 PM Oeflia Connor RN * Are you blind or [...] 09/18/2024 12:30 PM EDT Infusion Center Hematology/Oncology [address] [place] [address] [place] [address] Hodges dressing and cap change;Labs as needed per patient 09/22/2024 12:30 PM EDT Office Visit Gastroenterology [address] [id number] Network Associate, Hpn [address] [place] [address] HPN / PAGE [id number] 09/22/2024 1:00 PM EDT Office Visit Gastroenterology [address] [phone] Georgina Barkley MD [facility] [address] [place], [place] [id number] HPN / PAGE [id number] 09/25/2024 9:00 AM EDT Infusion Center Hematology/Oncology [address] [place] [address] [place] [address] Hodges dressing and cap change;Labs as needed per patient 09/29/2024 10:15 AM EDT Appointment [facility] Endoscopy - ENDO [address] [place] [address] [place] [address] [place] [address] EGD 10/02/2024 9:00 AM EDT Infusion Center Hematology/Oncology [address] [place] [address] [place] [address] Hodges dressing and cap change;Labs as needed per patient 10/09/2024 9:00 AM EDT Infusion Center Hematology/Oncology [address] [place] [address] [place] [address] Hodges dressing and cap change;Labs as needed per patient documented as of this encounter Visit Diagnoses Not on filedocumented in this encounter Additional Health Concerns Infection Onset Date Last Indicated Resolved Time COVID-19 Rule-Out 06/06/2023 06/06/2023 06/06/2023 6:19 PM EDT documented as of this encounter Care Teams Cone Runner Relationship Specialty Start Date End Date Rachel Foley MD [address] [place] [address] PCP - General Family Medicine 01/19/22 06/15/22 Anna Mendez APRN.ELEMENTARY SCHOOL SCIENCE TEACHER [address] [facility] [address] [place] [address] PCP - General 06/16/22 07/29/23 Thomas Alas MD [address] [place] [address] PCP - General Family Medicine 07/30/23 Antelmo Davey MD [address] [facility] [place] [address] 09/25/19 [place] [address] [place] [address] Consulting General Surgery 09/25/19 Shanna June CNP [address] [place] [place] [address] Referring Family Medicine 10/19/19 Tj Najera PA [address] [address] Referring Family Medicine 05/13/22 Georgina Barkley MD [address] [place] [address] Home Parenteral Nutrition Provider Gastroenterology 10/14/23 documented as of this encounter
--- OUTSIDE RECORDS SUMMARY | 2024-09-15 16:38 | XMS_ITS | Encounter Summary ---
Author Organization [facility] Address [address] [place] [address] Care Team Providers Care Binder Fixer Name Role Phone Antelmo Davey MD Unavailable [phone] Deacon Valladares MD Unavailable [phone] Shanna June HEAD OF IT Unavailable [phone] Rachel Foley MD Primary Care Provider [phone] Tj Najera Unavailable [phone] Anna Mendez APRN.[facility] Primary Care Provider Thomas Alas MD Primary Care Provider + Georgina Barkley MD Unavailable [phone] Source Comments In the event this information is protected by the Federal Confidentiality of Alcohol and Drug AbusePatient Records regulations: The Federal rules restrict any use of the information to criminally investigate or prosecute any alcohol or drug abuse patient.[facility] Encounter Details Date Type Department Care Team (Late st Contact Info) Description 03/22/2022 Patient Msg General Surgery [address] [facility] [address] [phone] Breanna Boyer APRN.HEAD OF IT [address] [place] [address] Appointment Request Social History Tobacco Use Types [...] https://www.neighborhoodatlas.medicine.[facility].edu/. Last address used for calculation [address] [address] 03/02/2022 Education Answer Date Recorded What is the highest level of school you have completed or the highest degree you have received? Master's degree (e.g., MA, MS, Birgit, MEd, TUBE MOUNTER, IVANIA) 10/15/2019 Comments No Sex and Gender [...] Info) Description 09/18/2024 12:30 PM EDT [facility] Center Hematology/Oncology [address] [place] [address] [place] [address] Hodges dressing and cap change;Labs as needed per patient 09/22/2024 12:30 PM EDT Office Visit Gastroenterology [address]48 [place] [address] Gasket Supervisor, Hpn [address] [place] [address] HPN / PAGE [phone] 09/22/2024 1:00 PM EDT Office Visit Gastroenterology [address] [phone] Georgina Barkley MD [facility] [address] [place] [address] HPN / PAGE [phone] 09/25/2024 9:00 AM EDT Infusion Center Hematology/Oncology [address] [facility] [place] [address] Hodges dressing and cap change;Labs as needed per patient 09/29/2024 10:15 AM EDT Appointment [facility] Endoscopy - ENDO [address] [place] [address] [place] [address] [place] [address] EGD 10/02/2024 9:00 AM EDT Infusion Center Hematology/Oncology [address] [facility] [place] [address] Hodges dressing and cap change;Labs as needed per patient 10/09/2024 9:00 AM EDT Infusion Center Hematology/Oncology [address] [place] [address] [place] [address] Hodges dressing and cap change;Labs as needed per patient documented as of this encounter Visit Diagnoses Not on filedocumented in this encounter Additional Health Concerns Infection Onset Date Last Indicated Resolved Time COVID-19 Rule-Out 06/06/2023 06/06/2023 06/06/2023 6:19 PM EDT documented as of this encounter Care Teams Binder Fixer Relationship Specialty Start Date End Date Rachel Foley MD [address] [place] [address] PCP - General Family Medicine 01/19/22 06/15/22 Anna Mendez, TECHNICIAN PREVENTATIVE MEDICINE.HEAD OF IT [address] [address] PCP - General 06/16/22 07/29/23 Thomas Alas MD [address] [place] [address] PCP - General Family Medicine 07/30/23 Antelmo Davey MD [address] [facility] [place] [address] 09/25/19 [place] [address] [place] [address] Consulting General Surgery 09/25/19 Shanna June CNP [address] [place] [address] Referring Family Medicine 10/19/19 Tj Najera PA [address] [address] Referring Family Medicine 05/13/22 Georgina Barkley MD [address] [place] [address] Home Parenteral Nutrition Provider Gastroenterology 10/14/23 documented as of this encounter
--- OUTSIDE RECORDS SUMMARY | 2024-09-15 16:38 | XMS_ITS | Encounter Summary ---
Author Organization [facility] Address [address] [place] [address] Care Team Providers Care Charge Out Clerk Name Role Phone Antelmo Davey MD Unavailable [phone] Deacon Valladares MD Unavailable Shanna June CNP Unavailable [phone] Tj Najera Unavailable [phone] Thomas Alas MD Primary Care Provider [phone] Georgina Barkley MD Unavailable [phone] Source Comments In the event this information is protected by the Federal Confidentiality of Alcohol and Drug AbusePatient Records regulations: The Federal rules restrict any use of the information to criminally investigate or prosecute any alcohol or drug abuse patient.[facility] Encounter Details Date Type Department Care Team (Late st Contact Info) Description 03/28/2024 Patient Msg Neurology [address] [place] [address] Provider, Ccf Appointment Needed Social History Tobacco Use Types Packs/Day Years Used Date Smoking Tobacco: Never Smokeless Tobacco: Never Alcohol Use Standard Drinks/Week Comments Not Currently 0 (1 standard drink = 0.6 oz pur e alcohol) [facility] Utilities Answer Date Recorded In the past 12 months has e electric, gas, oil, or water company threatened to shut off services in your home? No 12/02/2023 Social Connection and Isolat ion Panel [NHANES] Answer Date Recorded In a typical week, how many times do you talk on the phone with family, friends, or neighbors? More than three times a week 10/28/2022 How often do you get togethe r with friends or relatives? Once a week 10/28/2022 How often do you attend chur ch or restorationist services? 1 to 4 times per year 10/28/2022 Do you belong to any clubs o r organizations such as jehovah's witness groups, unions, fraternal or athletic groups, or [...] 12/06/2022 PHQ-2 Answer Date Recorded PHQ-2 score 3 01/14/2024 [facility] [place] [facility] Occupat ional [facility] - Occupational Stress [...] the money to buy more. Never true 12/02/19 24 Within the past 12 months, t he food you bought just didn't last and you didn't have money to get more. Never true 12/02/2023 PRAPARE - Transportation Answer Date Re corded In the past 12 months, has l ack of transportation kept you from medical appointments or from getting medications? No 11/15 In the past 12 months, has l ack of transportation kept you from meetings, work, or from getting things needed for daily living? No 12/02/2023 Housing Stability Vital Sign Answer Eugenio e [...] in a half-way (including now)? No 08/08/2023 Housing Stability Vital Sign Answer Eugenio e Recorded In the last 12 months, was t here a time when you were not able to pay the mortgage or rent on time? No 12/02/2023 Number of Times Moved in the Last Year Not on fi le 12/02/2023 At any time in the past 12 m [facility], were you homeless or living in a half-way (including now)? No 12/02/2023 Area Deprivation Index Answer Date Nayan rded National Score (1-100), lower number is lower ri sk 64 06/17/2022 State Score (1-10), lower number is lower risk 4 06/17/2022 Data from: https://www.neighborhoodatlas.medicine.[facility].edu/. Last address used for calculation [id number] [place] [address] RD [address] 06/17/2022 Education Answer Date Recorded What is the highest level of school you have completed or the highest degree you have received? Master's degree (e.g., MA, MS, Birgit, MEd, HAND SAMPLE MAKER, IVANIA) 10/15/2019 Comments No Sex and Gender [...] hearing? Answer Date of Assessment Author No 12/03/2023 1:48 PM EDT Georgina Burgos RN * Are you blind or do you have serious difficulty seeing, even when wearing glasses? Answer Date of Assessment Author No 12/03/2023 1:48 PM EDT Georgina Burgos RN * Do you have serious difficulty walking or climbing stairs? Answer Date of Assessment Author No 12/03/2023 1:48 PM EDT Georgina Burgos RN * Do you have difficulty dressing or bathing? Answer Date of Assessment Author No 12/03/2023 1:48 PM EDT Georgina Burgos RN * Because of a physical, mental, or emotional condition, do you have difficulty doing errands alone such as visiting a doctor's office or shopping? Answer Date of Assessment Author No 12/03/2023 1:48 PM EDT Georgina Burgos RN documented as of this encounter Mental Status * Because of a physical, mental, or emotional condition, do you have serious difficulty concentrating, remembering, or making decisions? Answer Entry Date Author No 12/03/2023 1:48 PM EDT Georgina Burgos RN documented in this encounter Plan of Treatment Upcoming Encounters Date Type Department Care Team (Latest Contact Info) Description 09/18/2024 12:30 PM EDT Infusion Center Hematology/Oncology [address] [place] [address] [place] [address] Carroll dressing and cap change;Labs as needed per patient 09/22/2024 12:30 PM EDT Office Visit Gastroenterology [address] [phone] Grupo Hwang [address] [place] [address] GRUPO / PAGE [id number] 09/22/2024 1:00 PM EDT Office Visit Gastroenterology [address] [phone] Georgina Barkley MD [address] [id number] HPN / PAGE [id number] 09/25/2024 9:00 AM EDT Infusion Center Hematology/Oncology [address] [place] [address] [place] [address] Hodges dressing and cap change;Labs as needed per patient 09/29/2024 10:15 AM EDT Appointment [facility] Endoscopy - ENDO [address] [place] [address] [place] [address] [place] [address] EGD 10/02/2024 9:00 AM EDT Infusion Center Hematology/Oncology [address] [place] [address] [place] [address] Hodges dressing and cap change;Labs as needed per patient 10/09/2024 9:00 AM EDT Infusion Center Hematology/Oncology [address] [place] [address] [place] [address] Hodges dressing and cap change;Labs as needed per patient documented as of this encounter Goals Goal Patient Goal Type Associated Problems Recent Progress Patient-Stated? Author Blood Pressure < 140/90 Blood Pressure 112/76( 025 8:48 AM EDT) No Hannah Devlin MD documented as of this encounter Visit Diagnoses Not on filedocumented in this encounter Care Teams Charge Out Clerk Relationship Specialty Start Date End Date Thomas Alas MD [address] [place] [address] PCP - General Family Medicine 07/30/23 Antelmo Davey MD [address] [place] [address] 09/25/19 [place] [address] [place] [address] Consulting General Surgery 09/25/19 Shanna June CNP [address] [place] [address] Referring Family Medicine 10/19/19 Tj Najera PA [address] [address] Referring Family Medicine 05/13/22 Georgina Barkley MD [address] [place] [address] Home Parenteral Nutrition Provider Gastroenterology 10/14/23 documented as of this encounter
--- OUTSIDE RECORDS SUMMARY | 2024-09-15 16:38 | XMS_ITS | Encounter Summary ---
Author Organization [facility] Address [address] [place] [address] Care Team Providers Care Workforce Management Manager Name Role Phone Antelmo Davey MD Unavailable [phone] Deacon Valladares MD Unavailable Shanna June CNP Unavailable [phone] Shanna June CNP Primary Care Provider [phone] Rachel Foley MD Primary Care Provider [phone] Tj Najera Unavailable [phone] Anna Mendez APRN.[facility] Primary Care Provider Thomas Alas MD Primary Care Provider [phone] Georgina Barkley MD Unavailable [phone] Source Comments In the event this information is protected by the Federal Confidentiality of Alcohol and Drug AbusePatient Records regulations: The Federal rules restrict any use of the information to criminally investigate or prosecute any alcohol or drug abuse patient.[facility] Encounter Details Date Type Department Care Team (Late st Contact Info) Description 01/13/2022 Patient Msg [facility] [address] [place] [address] Justine Shabazz PA-C [address] [place], [place] [phone] Appointment Cancellation Request Social History Tobacco Use [...] PHQ-2 Answer Date Recorded PHQ-2 score 2 12/24/2021 Hunger Vital Sign Answer Date Recorded Within [...] N ot on file 07/04/2021 Data from: https://www.neighborhoodatlas.medicine.[facility].edu/. Last address used for calculation [address] 07/04/2021 Education Answer Date Recorded What is the highest level of school you have completed or the highest degree you have received? Master's degree (e.g., MA, MS, Birgit, MEd, RAIL CAR MAINTENANCE MECHANIC, IVANIA) 10/15/2019 Comments No Sex and [...] suspected to have Coronavirus/COVID-19? Unable to assess 01/01/2022 1:01 PM EST documented as of this encounter Functional [...] 09/18/2024 12:30 PM EDT Infusion Center Hematology/Oncology [address] [place] [address] [place] [address] Carroll dressing and cap change;Labs as needed per patient 09/22/2024 12:30 PM EDT Office Visit Gastroenterology [address] [address] Raisin Washer, Grupo [address] [place] [address] HPN / PAGE [id number] 09/22/2024 1:00 PM EDT Office Visit Gastroenterology [address] [phone] Georgina Barkley MD [facility] [address] [phone] HPN / PAGE [phone] 09/25/2024 9:00 AM EDT Infusion Center Hematology/Oncology [address] [place] [address] [place] [address] Hodges dressing and cap change;Labs as needed per patient 09/29/2024 10:15 AM EDT Appointment [facility] Endoscopy - ENDO [address] [place] [address] [place] [address] [place] [address] EGD 10/02/2024 9:00 AM EDT Infusion Center Hematology/Oncology [address] [place] [address] [place] [address] Hodges dressing and cap change;Labs as needed per patient 10/09/2024 9:00 AM EDT Infusion Center Hematology/Oncology [address] [place] [address] [place] [address] Hodges dressing and cap change;Labs as needed per patient documented as of this encounter Visit Diagnoses Not on filedocumented in this encounter Additional Health Concerns Infection Onset Date Last Indicated Resolved Time COVID-19 Rule-Out 01/29/2022 01/29/2022 01/29/2022 6:59 PM EST COVID-19 Rule-Out 06/06/2023 06/06/2023 06/06/2023 6:19 PM EDT documented as of this encounter Care Teams Workforce Management Manager Relationship Specialty Start Date End Date Shanna June CNP [address] [place] [address] PCP - General Family Medicine 01/31/20 01/18/22 Rachel Foley MD [address] [place] [address] PCP - General Family Medicine 01/19/22 06/15/22 Anna Mendez APRN.OPERATOR PREFINISH [address] [address] PCP - General 06/16/22 07/29/23 Thomas Alas MD [address] [place] [address] PCP - General Family Medicine 07/30/23 Antelmo Davey MD [address] [place] [address] 09/25/19 [place] [address] [place] [address] Consulting General Surgery 09/25/19 Shanna June, BETH [address] [place] [address] Referring Family Medicine 10/19/19 Tj Najera PA [address] [address] Referring Family Medicine 05/13/22 Georgina Barkley MD [address] [place] [address] Home Parenteral Nutrition Provider Gastroenterology 10/14/23 documented as of this encounter
--- OUTSIDE RECORDS SUMMARY | 2024-09-15 16:38 | XMS_ITS | Encounter Summary ---
Author Organization [facility] Address [address] [place], [place] [address] Care Team Providers Care Post Closer Name Role Phone TiffanieMarcos DO Primary Care Provider [phone] Antelmo Davey MD Unavailable [phone] Deacon Valladares MD Unavailable [phone] Shanna June CNP Unavailable [phone] Shanna June ENTRY REP Primary Care Provider [phone] Rachel Foley MD Primary Care Provider [phone] Tj Najera Unavailable [phone] Anna Mendez APRN.ENTRY REP Primary Care Provider Thomas Alas MD Primary Care Provider + Georgina Barkley MD Unavailable [phone] Source Comments In the event this information is protected by the Federal Confidentiality of Alcohol and Drug AbusePatient Records regulations: The Federal rules restrict any use of the information to criminally investigate or prosecute any alcohol or drug abuse patient.[facility] Encounter Details Date Type Department Care Team (Late st Contact Info) Description 01/17/2020 Patient Msg General Surgery [address] [phone] Provider, Ccf Pre/Post Operative Instructions Social History Tobacco Use Types Packs/Day [...] 10/15/2019 PHQ-2 Answer Date Recorded PHQ-2 score 0 12/25/2019 Hunger Vital Sign Answer Date Recorded Within [...] N ot on file 01/21/2020 Data from: https://www.neighborhoodatlas.medicine.[facility].edu/. Last address used for calculation Not on file 01/21/2020 Education Answer Date Recorded What is the highest level of school you have completed or the highest degree you have received? Master's degree (e.g., MA, MS, Birgit, MEd, VOTING MACHINE MECHANIC, IVANIA) 10/15/2019 Comments Unknown Sex and Gender [...] 12:30 PM EDT Infusion Center Hematology/Oncology [address] [place] [address] [place] [address] Hodges dressing and cap change;Labs as needed per patient 09/22/2024 12:30 PM EDT Office Visit Gastroenterology [address] [phone] Upholstery Sewer, Hpn [address] [place] [address] [phone] HPN / PAGE [phone] 09/22/2024 1:00 PM EDT Office Visit Gastroenterology [address] [phone] Georgina Barkley MD [facility] [address] [place] [address] HPN / PAGE [phone] 09/25/2024 9:00 AM EDT Infusion Center Hematology/Oncology [address] [place] [address] [place] [address] Hodges dressing and cap change;Labs as needed per patient 09/29/2024 10:15 AM EDT Appointment [facility] Endoscopy - ENDO [address] [place] [address] [place] [address] [place], [place] [address] EGD 10/02/2024 9:00 AM EDT Infusion Center Hematology/Oncology [address] [place] [address] [place] [address] Hodges dressing and cap change;Labs as needed per patient 10/09/2024 9:00 AM EDT Infusion Center Hematology/Oncology [address] [place] [address] [place] [address] Hodges dressing and cap change;Labs as needed [...] documented as of this encounter Care Teams Post Closer Relationship Specialty Start Date End Date Marcos Moreno DO [address] [place], [place] [address] [address] PCP - General Clinical Research Scientist 09/25/19 01/30/20 Shanna June CNP [address] [place] [address] PCP - General Family Medicine 01/31/20 01/18/22 Rachel Foley MD [address] [place] [address] PCP - General Family Medicine 01/19/22 06/15/22 Anna Mendez APRN.ENTRY REP [address] [address] PCP - General 06/16/22 07/29/23 Thomas Alas MD [address] [place] [address] PCP - General Family Medicine 07/30/23 Antelmo Davey MD [address] [place] [address] 09/25/19 [place] [address] [place] [address] Consulting General Surgery 09/25/19 Shanna June CNP [address] [place] [address] Referring Family Medicine 10/19/19 Tj Najera PA [address] [address] Referring Family Medicine 05/13/22 Georgina Barkley MD [address] [place] [address] Home Parenteral Nutrition Provider Gastroenterology 10/14/23 documented as of this encounter
--- OUTSIDE RECORDS SUMMARY | 2024-09-15 16:38 | XMS_ITS | Encounter Summary ---
Author Organization [facility] Address [address] [place] [address] Care Team Providers Care Volleyball Commentator Name Role Phone Antelmo Davey MD Unavailable [phone] Deacon Valladares MD Unavailable [phone] Shanna June BLEACH SUPERVISOR Unavailable [phone] Rachel Foley MD Primary Care Provider [phone] Tj Najera Unavailable [phone] Anna Mendez APRN.[facility] Primary Care Provider Thomas Alas MD Primary Care Provider + Georgina Barkley MD Unavailable [phone] Source Comments In the event this information is protected by the Federal Confidentiality of Alcohol and Drug AbusePatient Records regulations: The Federal rules restrict any use of the information to criminally investigate or prosecute any alcohol or drug abuse patient.[facility] Encounter Details Date Type Department Care Team (Late st Contact Info) Description 03/05/2022 Patient Msg Family Medicine [address] [place] [address] Provider, Ccf Appointment Request Social History Tobacco [...] N ot on file 03/02/2022 Data from: https://www.neighborhoodatlas.medicine.[facility].edu/. Last address used for calculation [id number] [place] [address] [address] 03/02/2022 Education Answer Date Recorded What is the highest level of school you have completed or the highest degree you have received? Master's degree (e.g., MA, MS, Birgit, MEd, PAPER BALER, IVANIA) 10/15/2019 Comments No Sex and Gender Information Value Date Recorded Sex Assigned at Not on file Legal Sex Female 10:06 AM DARNELL Gender Identity Not on file Sexual Orientation [...] Assessment Author No 12/25/2020 6:09 PM Ofelia oCnnor RN * Because of a physical, mental, [...] 12:30 PM EDT Infusion Center Hematology/Oncology [address] [place] [address] [place] [address] Hodges dressing and cap change;Labs as needed per patient 09/22/2024 12:30 PM EDT Office Visit Gastroenterology [address] [id number] Birth Certificate Clerk, Hpn [address] [place] [id number] HPN / PAGE [id number] 09/22/2024 1:00 PM EDT Office Visit Gastroenterology [address] [phone] Georgina Barkley MD [facility] [address] [place], [place] [id number] HPN / PAGE [id number] 09/25/2024 9:00 AM EDT Infusion Center Hematology/Oncology [address] [place] [address] [place] [address] Hodges dressing and cap change;Labs as needed per patient 09/29/2024 10:15 AM EDT Appointment [facility] Endoscopy - ENDO [address] [place] [address] [place] [address] [place] [address] EGD 10/02/2024 9:00 AM EDT Infusion Center Hematology/Oncology [address] [place] [address] [place] [address] Hodges dressing and cap change;Labs as needed per patient 10/09/2024 9:00 AM EDT Infusion Center Hematology/Oncology [address] [place] [address] [place] [address] Hodges dressing and cap change;Labs as needed per patient documented as of this encounter Visit Diagnoses Not on filedocumented in this encounter Additional Health Concerns Infection Onset Date Last Indicated Resolved Time COVID-19 Rule-Out 06/06/2023 06/06/2023 06/06/2023 6:19 PM EDT documented as of this encounter Care Teams Volleyball Commentator Relationship Specialty Start Date End Date Rachel Foley MD [address] [place] [address] PCP - General Family Medicine 01/19/22 06/15/22 Anna Mendez APRN.BLEACH SUPERVISOR [address] [address] PCP - General 06/16/22 07/29/23 Thomas Alas MD [address] [place] [address] PCP - General Family Medicine 07/30/23 Antelmo Davey MD [address] [place] [address] 09/25/19 [place] [address] [place] [address] Consulting General Surgery 09/25/19 Shanna June CNP [address] [facility] [place] [address] Referring Family Medicine 10/19/19 Tj Najera PA [address] [address] Referring Family Medicine 05/13/22 Georgina Barkley MD [address] [place] [address] Home Parenteral Nutrition Provider Gastroenterology 10/14/23 documented as of this encounter
--- OUTSIDE RECORDS SUMMARY | 2024-09-15 16:38 | XMS_ITS | Encounter Summary ---
Author Organization [facility] Address [address] [place], [place] [id number] Care Team Providers Care Behavioral Therapist Name Role Phone TiffanieMarcos DO Primary Care Provider + [phone] Antelmo Davey MD Unavailable [phone] Deacon Valladares MD Unavailable [phone] Shanna June CNP Unavailable +[phone] Shanna June FIRE CAPTAIN MARINE Primary Care Provider [phone] Rachel Foley MD Primary Care Provider [phone] Tj Najera Unavailable [phone] Anna Mendez APRN.FIRE CAPTAIN MARINE Primary Care Provider Thomas Alas MD Primary Care Provider + Georgina Barkley MD Unavailable [phone] Source Comments In the event this information is protected by the Federal Confidentiality of Alcohol and Drug AbusePatient Records regulations: The Federal rules restrict any use of the information to criminally investigate or prosecute any alcohol or drug abuse patient.[facility] Encounter Details Date Type Department Care Team (Late st Contact Info) Description 11/09/2019 Patient Msg Endocrinology [address] [place], [place] [phone] [place] [address] [place] [address] Results Social History Tobacco Use Types Packs/Day Years [...] Master's degree (e.g., MA, MS, Birgit, MEd, MEDICAL SECRETARY, IVANIA) 10/15/2019 Comments Unknown Sex and Gender [...] have Coronavirus / COVID-19? No / Unsure 11/08/2019 7:37 AM EDT documented as of this encounter [...] 12:30 PM EDT Infusion Center Hematology/Oncology [address] [place] [address] [place] [address] Hodges dressing and cap change;Labs as needed per patient 09/22/2024 12:30 PM EDT Office Visit Gastroenterology [address] [place] [address] Pre Press Manager, Hpn [address] [place] [id number] HPN / PAGE [id number] 09/22/2024 1:00 PM EDT Office Visit Gastroenterology [address] [place] [address] Georgina Barkley MD [facility] [address] [place] [address] HPN / PAGE [id number] 09/25/2024 9:00 AM EDT Infusion Center Hematology/Oncology [address] [place] [address] [place] [address] Hodges dressing and cap change;Labs as needed per patient 09/29/2024 10:15 AM EDT Appointment [facility] Endoscopy - ENDO [address] [place] [address] [place] [address] [place] [address] EGD 10/02/2024 9:00 AM EDT Infusion Center Hematology/Oncology [address] [place] [address] [place] [address] Hodges dressing and cap change;Labs as needed per patient 10/09/2024 9:00 AM EDT Infusion Center Hematology/Oncology [address] [place] [address] [place] [address] Hodges dressing and cap change;Labs as needed [...] documented as of this encounter Care Teams Behavioral Therapist Relationship Specialty Start Date End Date Marcos Moreno DO [address] [place], [place] [address] [address] PCP - General Spring Internship 09/25/19 01/30/20 Shanna June CNP [address] [place] [address] PCP - General Family Medicine 01/31/20 01/18/22 Rachel Foley MD [address] [place] [address] PCP - General Family Medicine 01/19/22 06/15/22 Anna Mendez APRN.FIRE CAPTAIN MARINE [address] [address] PCP - General 06/16/22 07/29/23 Thomas Alas MD [address] [place] [address] PCP - General Family Medicine 07/30/23 Antelmo Davey MD [address] [place] [address] 09/25/19 [place] [address] [place] [address] Consulting General Surgery 09/25/19 Shanna June CNP [address] [place] [address] Referring Family Medicine 10/19/19 Tj Najera PA [address] [place] [address] Referring Family Medicine 05/13/22 Georgina Barkley MD [address] [place] [address] Home Parenteral Nutrition Provider Gastroenterology 10/14/23 documented as of this encounter
--- OUTSIDE RECORDS SUMMARY | 2024-09-15 16:38 | XMS_ITS | Encounter Summary ---
Author Organization [facility] Address [address] [place], [place] [address] Care Team Providers Care Motor Vehicle Technician Name Role Phone TiffanieMarcos DO Primary Care Provider + [phone] Antelmo Davey MD Unavailable [phone] Deacon Valladares MD Unavailable [phone] Shanna June CNP Unavailable +[phone] CLEANER Primary Care Provider [phone] Rachel Foley MD Primary Care Provider [phone] Tj Najera Unavailable [phone]STRE[address] CLEANER Primary Care Provider Thomas Alas MD Primary Care Provider + Georgina Barkley MD Unavailable [phone] Source Comments In the event this information is protected by the Federal Confidentiality of Alcohol and Drug AbusePatient Records regulations: The Federal rules restrict any use of the information to criminally investigate or prosecute any alcohol or drug abuse patient.[facility] Encounter Details Date Type Department Care Team (Late st Contact Info) Description 12/04/2019 Patient Msg BMI [facility] REJ [address] [place], [place] [phone] Provider, Ccrenae RE: Nutrition Goals Social History Tobacco Use Types Packs/Day Years [...] 10/15/2019 PHQ-2 Answer Date Recorded PHQ-2 Score 0 12/04/2019 Hunger Vital Sign Answer Date Recorded Within [...] Master's degree (e.g., MA, MS, Birgit, MEd, COAL CAGER, IVANIA) 10/15/2019 Comments Unknown Sex and Gender [...] 09/18/2024 12:30 PM EDT Infusion Center Hematology/Oncology [address] [place] [address] Hodges dressing and cap change;Labs as needed per patient 09/22/2024 12:30 PM EDT Office Visit Gastroenterology [address] [phone] Arts Manager, Hpn [address] [place] [id number] HPN / PAGE [id number] 09/22/2024 1:00 PM EDT Office Visit Gastroenterology [address] [phone] Georgina Barkley MD [facility] [address] [place] [address] HPN / PAGE [id number] 09/25/2024 9:00 AM EDT Infusion Center Hematology/Oncology [address] [place] [address] Hodges dressing and cap change;Labs as needed per patient 09/29/2024 10:15 AM EDT Appointment [facility] Endoscopy - ENDO [address] [place] [address] [place] [address] [place] [address] EGD 10/02/2024 9:00 AM EDT Infusion Center Hematology/Oncology [address] [place] [address] [place] [address] Hodges dressing and cap change;Labs as needed per patient 10/09/2024 9:00 AM EDT Infusion Center Hematology/Oncology [address] [place] [address] [place] [address] Hodges dressing and cap change;Labs as needed [...] documented as of this encounter Care Teams Motor Vehicle Technician Relationship Specialty Start Date End Date Marcos Moreno DO [address] [place] [address] [place] [address] PCP - General Process Equipment Operator 09/25/19 01/30/20 Shanna June CNP [address] [place] [address] PCP - General Family Medicine 01/31/20 01/18/22 Rachel Foley MD [address] [place] [address] PCP - General Family Medicine 01/19/22 06/15/[address]STREET CLEANER [address] [address] PCP - General 06/16/22 07/29/23 Thomas Alas MD [address] [place] [address] PCP - General Family Medicine 07/30/23 Antelmo Davey MD [address] [place] [address] 09/25/19 [place] [address] [place] [address] Consulting General Surgery 09/25/19 Shanna June CNP [address] [place] [address] Referring Family Medicine 10/19/19 Tj Najera PA [address] [place] [address] Referring Family Medicine 05/13/22 Georgina Barkley MD [address] [place] [address] Home Parenteral Nutrition Provider Gastroenterology 10/14/23 documented as of this encounter
--- OUTSIDE RECORDS SUMMARY | 2024-09-15 16:38 | XMS_ITS | Encounter Summary ---
Author Organization [facility] Address [address] [place] [address] Care Team Providers Care Security Architect Name Role Phone Antelmo Davey MD Unavailable Deacon Valladares MD Unavailable [phone] Shanna June [facility] Unavailable [phone] Tj Najera Unavailable [phone] Anna Mendez APRN.[facility] Primary Care Provider Thomas Alas MD Primary Care Provider [phone] Georgina Barkley MD Unavailable [phone] Source Comments In the event this information is protected by the Federal Confidentiality of Alcohol and Drug AbusePatient Records regulations: The Federal rules restrict any use of the information to criminally investigate or prosecute any alcohol or drug abuse patient.[facility] Encounter Details Date Type Department Care Team (Late st Contact Info) Description 08/27/2022 Get Medical Advice Nutrition Therapy [address] [place] [address] Provider, Ccf Nutrition Social History Tobacco Use Types Packs/Day Years [...] care, and heating? Not hard at all 06/20/2022 PHQ-2 Answer Date Recorded PHQ-2 score 2 03/24/2022 Hunger Vital Sign Answer Date Recorded Within the past 12 months, y ou worried that your food would run out before you got the money to buy more. Never true 06/21/19 23 Within the past 12 months, t he food you bought just didn't last and you didn't have money to get more. Never true 06/20/2022 PRAPARE - Transportation Answer Date Re corded In the past 12 months, has l ack of transportation kept you from medical appointments or from getting medications? No 07/2022 In the past 12 months, has l ack of transportation kept you from meetings, work, or from getting things needed for daily living? No 06/20/2022 Housing Stability Vital Sign Answer Eugenio e Recorded In the last 12 months, was t here a time when you were not able to pay the mortgage or rent on time? No 06/20/2022 Number of Places Lived in the Last Year Not on f ile 06/20/2022 In the last 12 months, was t here a time when you did not have a steady place to sleep or slept in a nursing home (including now)? No 06/20/2022 Area Deprivation Index Answer Date Nayan rded National Score (1-100), lower number is lower ri sk 64 06/17/2022 State Score (1-10), lower number is lower risk 4 06/17/2022 Data from: https://www.neighborhoodatlas.medicine.[facility].edu/. Last address used for calculation [address] [address] 06/17/2022 Education Answer Date Recorded What is the highest level of school you have completed or the highest degree you have received? Master's degree (e.g., MA, MS, Birgit, MEd, CORPORATE COMMUNICATIONS ASSOCIATE, IVANIA) 10/15/2019 Comments No Sex and Gender [...] Contact Info) Description 09/18/2024 12:30 PM EDT [facility] Center Hematology/Oncology [address] [place] [address] [place] [address] [place] dressing and cap change;Labs as needed per patient 09/22/2024 12:30 PM EDT Office Visit Gastroenterology [address] [phone] Manager Night, Grupo [address] [place] [address] GRUPO / PAGE [id number] 09/22/2024 1:00 PM EDT Office Visit Gastroenterology [address] [phone] Georgina Barkley MD [place] [id number] HPN / PAGE [id number] 09/25/2024 9:00 AM EDT Infusion Center Hematology/Oncology [address] [place] [address] [place] [address] Hodges dressing and cap change;Labs as needed per patient 09/29/2024 10:15 AM EDT Appointment [facility] Endoscopy - ENDO [address] [place] [address] [place] [address] [place] [address] EGD 10/02/2024 9:00 AM EDT Infusion Center Hematology/Oncology [address] [place] [address] [place] [address] Hodges dressing and cap change;Labs as needed per patient 10/09/2024 9:00 AM EDT Infusion Center Hematology/Oncology [address] [place] [address] [place] [address] Hodges dressing and cap change;Labs as needed per patient documented as of this encounter Visit Diagnoses Not on filedocumented in this encounter Additional Health Concerns Infection Onset Date Last Indicated Resolved Time COVID-19 Rule-Out 06/06/2023 06/06/2023 06/06/2023 6:19 PM EDT documented as of this encounter Care Teams Security Architect Relationship Specialty Start Date End Date Anna Mendez, BUSINESS OPERATIONS DIRECTOR.NAVIGATION TEACHER [address] [address] PCP - General 06/16/22 07/29/23 Thomas Alas MD [address] [place] [address] PCP - General Family Medicine 07/30/23 Antelmo Davey MD [address] [place] [address] 09/25/19 [place] [address] [place] [address] Consulting General Surgery 09/25/19 Shanna June CNP [address] [place] [address] Referring Family Medicine 10/19/19 Tj Najera PA [address] [address] Referring Family Medicine 05/13/22 Georgina Barkley MD [address] [place] [address] Home Parenteral Nutrition Provider Gastroenterology 10/14/23 documented as of this encounter
--- OUTSIDE RECORDS SUMMARY | 2024-09-15 16:38 | XMS_ITS | Encounter Summary ---
Author Organization [facility] Address [address] [place] [address] Care Team Providers Care Set Key Driver Name Role Phone Antelmo Davey MD Unavailable [phone] Deacon Valladares MD Unavailable [phone] Shanna June SERVICES MANAGER Unavailable + [phone] Rachel Foley MD Primary Care Provider [phone] Tj Najera Unavailable [phone] Anna Mendez APRN.[facility] Primary Care Provider Thomas Alas MD Primary Care Provider + Georgina Barkley MD Unavailable [phone] Source Comments In the event this information is protected by the Federal Confidentiality of Alcohol and Drug AbusePatient Records regulations: The Federal rules restrict any use of the information to criminally investigate or prosecute any alcohol or drug abuse patient.[facility] Encounter Details Date Type Department Care Team (Late st Contact Info) Description 01/20/2022 Patient [facility] [address] [place] [address] Justine Shabazz PA-C [address] [place] [address] Appointment Cancellation Request Social History Tobacco Use [...] N ot on file 07/04/2021 Data from: https://www.neighborhoodatlas.medicine.[facility].edu/. Last address used for calculation [address] 07/04/2021 Education Answer Date Recorded What is the highest level of school you have completed or the highest degree you have received? Master's degree (e.g., MA, MS, Birgit, MEd, RADIATION / CHEMISTRY TECHNICIAN, IVANIA) 10/15/2019 Comments No Sex and Gender [...] suspected to have Coronavirus/COVID-19? No / Unsure 01/19/2022 4:12 PM EST documented as of this encounter [...] 09/18/2024 12:30 PM EDT Infusion Center Hematology/Oncology [address] [place] [address] [place] [address] Hodges dressing and cap change;Labs as needed per patient 09/22/2024 12:30 PM EDT Office Visit Gastroenterology [address] [phone] Heater Room Helper, Hpn [address] [place] [address] HPN / PAGE [id number] 09/22/2024 1:00 PM EDT Office Visit Gastroenterology [address] [phone] Georgina Barkley MD [facility] [address] [place], [place] [phone] HPN / PAGE [id number] 09/25/2024 9:00 AM EDT Infusion Center Hematology/Oncology [address] [place] [address] [place] [address] Hodges dressing and cap change;Labs as needed per patient 09/29/2024 10:15 AM EDT Appointment [facility] Endoscopy - ENDO [address] [place] [address] [place] [address] [place] [address] EGD 10/02/2024 9:00 AM EDT Infusion Center Hematology/Oncology [address] [place] [address] [place] [address] Hodges dressing and cap change;Labs as needed per patient 10/09/2024 9:00 AM EDT Infusion Center Hematology/Oncology [address] [place] [address] [place] [address] Hodges dressing and cap change;Labs as needed per patient documented as of this encounter Visit Diagnoses Not on filedocumented in this encounter Additional Health Concerns Infection Onset Date Last Indicated Resolved Time COVID-19 Rule-Out 01/29/2022 01/29/2022 01/29/2022 6:59 PM EST COVID-19 Rule-Out 06/06/2023 06/06/2023 06/06/2023 6:19 PM EDT documented as of this encounter Care Teams Set Key Driver Relationship Specialty Start Date End Date Rachel Foley MD [address] [place] [address] PCP - General Family Medicine 01/19/22 06/15/22 Anna Mendez APRN.SERVICES MANAGER [address] [address] PCP - General 06/16/22 07/29/23 Thomas Alas MD [address] [facility] [place] [address] PCP - General Family Medicine 07/30/23 Antelmo Davey MD [address] [facility] [place] [address] 09/25/19 [place] [address] [place] [address] Consulting General Surgery 09/25/19 Shanna June CNP [address] [place] [address] Referring Family Medicine 10/19/19 Tj Najera PA [address] [address] Referring Family Medicine 05/13/22 Georgina Barkley MD [address] [place] [address] Home Parenteral Nutrition Provider Gastroenterology 10/14/23 documented as of this encounter
--- OUTSIDE RECORDS SUMMARY | 2024-09-15 16:38 | XMS_ITS | Encounter Summary ---
Author Organization [facility] Address [address] [place] [address] Care Team Providers Care Cabin Supervisor Name Role Phone Antelmo Davey MD Unavailable Deacon Valladares MD Unavailable Shanna June VISUAL BASIC .NET DEVELOPER Unavailable [phone] Tj Najera Unavailable [phone] Anna Mendez APRN.VISUAL BASIC .NET DEVELOPER Primary Care Provider Thomas Alas MD Primary Care Provider [phone] Georgina Barkley MD Unavailable [phone] Source Comments In the event this information is protected by the Federal Confidentiality of Alcohol and Drug AbusePatient Records regulations: The Federal rules restrict any use of the information to criminally investigate or prosecute any alcohol or drug abuse patient.[facility] Encounter Details Date Type Department Care Team (Late st Contact Info) Description 10/29/[address] [facility] Surgery [address] [place] [address] Anna Mendez APRN.VISUAL BASIC .NET DEVELOPER [address] [place] [address] Social History Tobacco Use Types Packs/Day Years Used Date Smoking Tobacco: Never Smokeless Tobacco: Never Alcohol Use Standard Drinks/Week Comments Not Currently 0 (1 standard drink = 0.6 oz pur e alcohol) Social Connection and Isolat ion Panel [NHANES] Answer Date Recorded In a typical week, how many times do you talk on the phone with family, friends, or neighbors? More than three times a week 10/28/2022 How often do you get togethe r with friends or relatives? Once a week 10/28/2022 How often do you attend chur or orthodoxy services? 1 to 4 times per year 10/28/2022 Do you belong to any clubs o r organizations such as episcopalian groups, unions, fraternal or athletic groups, or [...] like food, housing, medical care, and heating? Somewhat hard 10/28/2022 PHQ-2 Answer Date Recorded PHQ-2 score 2 10/04/2022 [facility] - Occupational Stress [...] the money to buy more. Never true 10/29/19 23 Within the past 12 months, t he food you bought just didn't last and you didn't have money to get more. Never true 10/28/2022 PRAPARE - Transportation Answer Date Re corded In the past 12 months, has l ack of transportation kept you from medical appointments or from getting medications? No 10/16 In the past 12 months, has l ack of transportation kept you from meetings, work, or from getting things needed for daily living? No 10/28/2022 Housing Stability Vital Sign Answer Eugenio e Recorded In the last 12 months, was t here a time when you were not able to pay the mortgage or rent on time? Yes 10/28/2022 In the last 12 months, how many places have you lived? 1 10/28/2022 In the last 12 months, was t here a time when you did not have a steady place to sleep or slept in a custodial (including now)? No 10/28/2022 Area Deprivation Index Answer Date Nayan rded National Score (1-100), lower number is lower ri sk 64 06/17/2022 State Score (1-10), lower number is lower risk 4 06/17/2022 Data from: https://www.neighborhoodatlas.medicine.[facility].edu/. Last address used for calculation [id number] [place] [address] [address] 06/17/2022 Education Answer Date Recorded What is the highest level of school you have completed or the highest degree you have received? Master's degree (e.g., MA, MS, Birgit, MEd, SYSTEMS CONSULTANT, IVANIA) 10/15/2019 Comments No Sex and [...] hearing? Answer Date of Assessment Author No 10/28/2022 1:07 PM EDT Tasha Crocker RN * Are you blind or do you have serious difficulty seeing, even when wearing glasses? Answer Date of Assessment Author No 10/28/2022 1:07 PM EDT Tasha Crocker RN * Do you have serious difficulty walking or climbing stairs? Answer Date of Assessment Author No 10/28/2022 1:07 PM EDT Tasha Crocker RN * Do you have difficulty dressing or bathing? Answer Date of Assessment Author No 10/28/2022 1:07 PM EDT Tasha Crocker RN * Because of a physical, mental, or emotional condition, do you have difficulty doing errands alone such as visiting a doctor's office or shopping? Answer Date of Assessment Author No 10/28/2022 1:07 PM EDT Tasha Crocker RN documented as of this encounter Mental Status * Because of a physical, mental, or emotional condition, do you have serious difficulty concentrating, remembering, or making decisions? Answer Entry Date Author No 10/28/2022 1:07 PM EDT Tasha Crocker RN documented in this encounter Plan of Treatment Upcoming Encounters Date Type Department Care Team (Latest Contact Info) Description 09/18/2024 12:30 PM EDT Infusion Center Hematology/Oncology [facility] [address] Hodges dressing and cap change;Labs as needed per patient 09/22/2024 12:30 PM EDT Office Visit Gastroenterology [address] [phone] Supervisor Ticket Sales, Hpn [address] [place] [address] HPN / PAGE [phone] 09/22/2024 1:00 PM EDT Office Visit Gastroenterology [address] [address] Georgina Barkley MD [facility] [address] [place] [address] HPN / PAGE [phone] 09/25/2024 9:00 AM EDT Infusion Center Hematology/Oncology [address] [place] [address] [place] [address] Hodges dressing and cap change;Labs as needed per patient 09/29/2024 10:15 AM EDT Appointment [facility] Endoscopy - ENDO [address] [place] [address] [place] [address] [place] [address] EGD 10/02/2024 9:00 AM EDT Infusion Center Hematology/Oncology [address] [place] [address] [place] [address] Hodges dressing and cap change;Labs as needed per patient 10/09/2024 9:00 AM EDT Infusion Center Hematology/Oncology [address] [place] [address] [place] [address] Hodges dressing and cap change;Labs as needed per patient documented as of this encounter Visit Diagnoses Not on filedocumented in this encounter Additional Health Concerns Infection Onset Date Last Indicated Resolved Time COVID-19 Rule-Out 06/06/2023 06/06/2023 06/06/2023 6:19 PM EDT documented as of this encounter Care Teams Cabin Supervisor Relationship Specialty Start Date End Date Anna Mendez APRN.VISUAL BASIC .NET DEVELOPER [address] [address] PCP - General 06/16/22 07/29/23 Thomas Alas MD [address] [place] [address] PCP - General Family Medicine 07/30/23 Antelmo Davey MD [address] [place] [address] 09/25/19 [place] [address] [place] [address] Consulting General Surgery 09/25/19 Shanna June CNP [address] [place] [address] Referring Family Medicine 10/19/19 Tj Najera PA 112 [facility] [address] [place] [address] Referring Family Medicine 05/13/22 Georgina Barkley MD [address] [place] [address] Home Parenteral Nutrition Provider Gastroenterology 10/14/23 documented as of this encounter
--- OUTSIDE RECORDS SUMMARY | 2024-09-15 16:38 | XMS_ITS | Encounter Summary ---
Author Organization [facility] Address [address] [place] [address] Care Team Providers Care Community Nutrition Educator Name Role Phone Antelmo Davey MD Unavailable Deacon Valladares MD Unavailable [phone] Shanna June CNP Unavailable [phone] Shanna June CNP Primary Care Provider [phone] Rachel Foley MD Primary Care Provider [phone] Tj Najera Unavailable [phone] Anna Mendez APRN.[facility] Primary Care Provider Thomas Alas MD Primary Care Provider +-4 Georgina Barkley MD Unavailable [phone] Source Comments In the event this information is protected by the Federal Confidentiality of Alcohol and Drug AbusePatient Records regulations: The Federal rules restrict any use of the information to criminally investigate or prosecute any alcohol or drug abuse patient.[facility] Encounter Details Date Type Department Care Team (Late st Contact Info) Description 04/01/2020 Get Medical Advice Nutrition Therapy [address] [address] Provider, Ccf Visit Follow Up Question Social History Tobacco Use Types Packs/Day [...] PHQ-2 Answer Date Recorded PHQ-2 score 2 03/20/2020 Hunger Vital Sign Answer Date Recorded Within [...] N ot on file 01/21/2020 Data from: https://www.neighborhoodatlas.medicine.[facility].edu/. Last address used for calculation Not on file 01/21/2020 Education Answer Date Recorded What is the highest level of school you have completed or the highest degree you have received? Master's degree (e.g., MA, MS, Birgit, MEd, REFRIGERATION REPAIR SUPERVISOR, IVANIA) 10/15/2019 Comments No Sex and Gender [...] have Coronavirus / COVID-19? No / Unsure 04/04/2020 9:49 AM EST documented as of this encounter Functional Status * Are you deaf or do you have serious difficulty hearing? Answer Date of Assessment Author No 02/08/2020 2:47 PM Ericka Troy RN * Are you blind or do you have serious difficulty seeing, even when wearing glasses? Answer Date of Assessment Author No 02/08/2020 2:47 PM Ericka Troy RN * Do you have serious difficulty walking or climbing stairs? Answer Date of Assessment Author No 02/08/2020 2:47 PM Ericka Troy RN * Do you have difficulty dressing or bathing? Answer Date of Assessment Author No 02/08/2020 2:47 PM Ericka Troy RN * Because of a physical, mental, or emotional condition, do you have difficulty doing errands alone such as visiting a doctor's office or shopping? Answer Date of Assessment Author No 02/08/2020 2:47 PM rEicka Troy RN documented as of this encounter Mental Status * Because of a physical, mental, or emotional condition, do you have serious difficulty concentrating, remembering, or making decisions? Answer Entry Date Author No 02/08/2020 2:47 PM Ericka Troy RN documented in this encounter Plan of Treatment Upcoming Encounters Date Type Department Care Team (Latest Contact Info) Description 09/18/2024 12:30 PM EDT [facility] Hematology/Oncology [address] [place] [address] [place] [address] Hodges dressing and cap change;Labs as needed per patient 09/22/2024 12:30 PM EDT Office Visit Gastroenterology [address] [phone] Screen Printing Machine Operator Helper, Grupo [address] [place], [place] [id number] HPN / PAGE [phone] 09/22/2024 1:00 PM EDT Office Visit Gastroenterology [address] [phone] Georgina Barkley MD [address] [address] HPN / PAGE [phone] 09/25/2024 9:00 AM EDT Infusion Center Hematology/Oncology [address] [place] [address] [place] [address] Hodges dressing and cap change;Labs as needed per patient 09/29/2024 10:15 AM EDT Appointment [facility] Endoscopy - ENDO [address] [place] [address] [place] [address] [place] [address] EGD 10/02/2024 9:00 AM EDT Infusion Center Hematology/Oncology [address] [place] [address] [place] [address] Hodges dressing and cap change;Labs as needed per patient 10/09/2024 9:00 AM EDT Infusion Center Hematology/Oncology [address] [place] [address] [place] [address] Hodges dressing and cap change;Labs as needed per patient documented as of this encounter Visit Diagnoses Not on filedocumented in this encounter Additional Health Concerns Infection Onset Date Last Indicated Resolved Time COVID-19 Rule-Out 04/04/2020 04/04/2020 04/05/2020 5:49 AM EST COVID-19 Rule-Out 12/21/2020 12/21/2020 12/21/2020 11:01 PM EDT COVID-19 Rule-Out 12/21/2020 12/21/2020 12/25/2020 9:09 PM EST COVID-19 Rule-Out 01/29/2022 01/29/2022 01/29/2022 6:59 PM EST COVID-19 Rule-Out 06/06/2023 06/06/2023 06/06/2023 6:19 PM EDT documented as of this encounter Care Teams Community Nutrition Educator Relationship Specialty Start Date End Date Shanna June CNP [address] [place] [address] PCP - General Family Medicine 01/31/20 01/18/22 Rachel Foley MD [address] [place] [address] PCP - General Family Medicine 01/19/22 06/15/22 Anna Mendez APRN.UNIT MANAGER RN [address] [address] PCP - General 06/16/22 07/29/23 Thomas Alas MD [address] [place] [address] PCP - General Family Medicine 07/30/23 Antelmo Davey MD [address] [place] [address] 09/25/19 [place] [address] [place] [address] Consulting General Surgery 09/25/19 Shanna June, BETH [address] [place] [address] Referring Family Medicine 10/19/19 Tj Najera PA [address] [address] Referring Family Medicine 05/13/22 Georgina Barkley MD [address] [place] [address] Home Parenteral Nutrition Provider Gastroenterology 10/14/23 documented as of this encounter
--- OUTSIDE RECORDS SUMMARY | 2024-09-15 16:38 | XMS_ITS | Encounter Summary ---
Author Organization [facility] Address [address] [place] [address] Care Team Providers Care Chief Executive Name Role Phone Antelmo Daevy MD Unavailable [phone] Deacon Valladares MD Unavailable [phone] Shanna June SUPERVISOR RECORDS CHANGE Unavailable [phone] Rachel Foley MD Primary Care Provider [phone] Tj Najera Unavailable [phone] Anna Mendez APRN.[facility] Primary Care Provider Thomas Alas MD Primary Care Provider +4 Georgina Barkley MD Unavailable [phone] Source Comments In the event this information is protected by the Federal Confidentiality of Alcohol and Drug AbusePatient Records regulations: The Federal rules restrict any use of the information to criminally investigate or prosecute any alcohol or drug abuse patient.[facility] Encounter Details Date Type Department Care Team (Late st Contact Info) Description 02/12/2022 Patient Msg Orth and Rheum [place] [address] [place] [address] Provider, Ccf 02/13 Appointment Location Change Social History Tobacco Use Types Packs/Day Years [...] N ot on file 07/04/2021 Data from: https://www.neighborhoodatlas.medicine.[facility].edu/. Last address used for calculation [id number] [place] [address] [address] 07/04/2021 Education Answer Date Recorded What is the highest level of school you have completed or the highest degree you have received? Master's degree (e.g., MA, MS, Birgit, MEd, CABLE DRILLER, IVANIA) 10/15/2019 Comments No Sex and Gender [...] Info) Description 09/18/2024 12:30 PM EDT [facility] Center Hematology/Oncology [address] [place] [address] [place] [address] Hodges dressing and cap change;Labs as needed per patient 09/22/2024 12:30 PM EDT Office Visit Gastroenterology [address] [phone] Corporate Quality Manager, Hpn [address] [place] [address] HPN / PAGE [phone] 09/22/2024 1:00 PM EDT Office Visit Gastroenterology [address] [phone] Georgina Barkley MD [facility] [address] [place], [place] [phone] HPN / PAGE [phone] 09/25/2024 9:00 AM EDT Infusion Center Hematology/Oncology [address] [place] [address] [place] [address] Hodges dressing and cap change;Labs as needed per patient 09/29/2024 10:15 AM EDT Appointment [facility] Endoscopy - ENDO [address] [place] [address] [place] [address] [place] [address] EGD 10/02/2024 9:00 AM EDT Infusion Center Hematology/Oncology [address] [place] [address] [place] [address] Hodges dressing and cap change;Labs as needed per patient 10/09/2024 9:00 AM EDT Infusion Center Hematology/Oncology [address] [place] [address] [place] [address] Hodges dressing and cap change;Labs as needed per patient documented as of this encounter Visit Diagnoses Not on filedocumented in this encounter Additional Health Concerns Infection Onset Date Last Indicated Resolved Time COVID-19 Rule-Out 06/06/2023 06/06/2023 06/06/2023 6:19 PM EDT documented as of this encounter Care Teams Chief Executive Relationship Specialty Start Date End Date Rachel Foley MD [address] [place] [address] PCP - General Family Medicine 01/19/22 06/15/22 Anna Mendez APRN.SUPERVISOR RECORDS CHANGE [address] [address] PCP - General 06/16/22 07/29/23 Thomas Alas MD [address] [place] [address] PCP - General Family Medicine 07/30/23 Antelmo Davey MD [address] [facility] [place] [address] 09/25/19 [place] [address] [place] [address] Consulting General Surgery 09/25/19 Shanna June CNP [address] [place] [address] Referring Family Medicine 10/19/19 Tj Najera PA [address] [address] Referring Family Medicine 05/13/22 Georgina Barkley MD [address] [place] [address] Home Parenteral Nutrition Provider Gastroenterology 10/14/23 documented as of this encounter
--- OUTSIDE RECORDS SUMMARY | 2024-09-15 16:38 | XMS_ITS | Encounter Summary ---
Author Organization [facility] Address [address] [place] [address] Care Team Providers Care Primer Inspector Name Role Phone Antelmo Davey MD Unavailable Deacon Valladares MD Unavailable Shanna June CNP Unavailable [phone] Shanna June AUTOPSY PATHOLOGIST Primary Care Provider [phone] Rachel Foley MD Primary Care Provider [phone] Tj Najera Unavailable [phone] Anna Mendez APRN.[facility] Primary Care Provider Thomas Alas MD Primary Care Provider +-4 Georgina Barkley MD Unavailable [phone] Source Comments In the event this information is protected by the Federal Confidentiality of Alcohol and Drug AbusePatient Records regulations: The Federal rules restrict any use of the information to criminally investigate or prosecute any alcohol or drug abuse patient.[facility] Encounter Details Date Type Department Care Team (Late st Contact Info) Description 03/25/2020 Patient Msg General Surgery [address] [phone] Provider, Ccf Medical workup Social History Tobacco Use Types Packs/Day Years [...] N ot on file 01/21/2020 Data from: https://www.neighborhoodatlas.medicine.[facility].edu/. Last address used for calculation Not on file 01/21/2020 Education Answer Date Recorded What is the highest level of school you have completed or the highest degree you have received? Master's degree (e.g., MA, MS, Birgit, MEd, OUTSOLE CEMENTER, IVANIA) 10/15/2019 Comments No Sex and Gender [...] have Coronavirus / COVID-19? Unable to assess 03/26/2020 4:48 PM EST documented as of this encounter [...] 02/08/2020 2:47 PM Ericka Troy RN documented as of this encounter [...] PM EDT [facility] Center Hematology/Oncology [address] [place] [address] [place] [address] Hodges dressing and cap change;Labs as needed per patient 09/22/2024 12:30 PM EDT Office Visit Gastroenterology [address] [address] Fisheries Biologist, Grupo [address] [place], [place] [id number] HPN / PAGE [id number] 09/22/2024 1:00 PM EDT Office Visit Gastroenterology [address] [address] Georgina Barkley MD [facility] [address] [address] HPN / PAGE [id number] 09/25/2024 9:00 AM EDT Infusion Center Hematology/Oncology [address] [place] [address] [place] [address] Hodges dressing and cap change;Labs as needed per patient 09/29/2024 10:15 AM EDT Appointment [facility] Endoscopy - ENDO [address] [place] [address] [place] [address] [place] [address] EGD 10/02/2024 9:00 AM EDT Infusion Center Hematology/Oncology [address] [place] [address] [place], [place] [phone] Hodges dressing and cap change;Labs as needed per patient 10/09/2024 9:00 AM EDT Infusion Center Hematology/Oncology [address] [place] [address] [place] [address] Hodges dressing and cap change;Labs as needed [...] documented as of this encounter Care Teams Primer Inspector Relationship Specialty Start Date End Date Shanna June CNP [address] [place] [address] PCP - General Family Medicine 01/31/20 01/18/22 Rachel Foley MD [address] [place] [address] PCP - General Family Medicine 01/19/22 06/15/22 Anna Mendez APRN.AUTOPSY PATHOLOGIST [address] [address] PCP - General 06/16/22 07/29/23 Thomas Alas MD [address] [place] [address] PCP - General Family Medicine 07/30/23 Antelmo Davey MD [address] [place] [address] 09/25/19 [place] [address] [place] [address] Consulting General Surgery 09/25/19 Shanna June, BETH [address] [place] [address] Referring Family Medicine 10/19/19 Tj Najera PA [address] [facility] [address] [place] [address] Referring Family Medicine 05/13/22 Georgina Barkley MD [address] [place] [address] Home Parenteral Nutrition Provider Gastroenterology 10/14/23 documented as of this encounter
--- OUTSIDE RECORDS SUMMARY | 2024-09-15 16:38 | XMS_ITS | Encounter Summary ---
Author Organization [facility] Address [address] [place] [address] Care Team Providers Care Adapted Physical Education Specialist Name Role Phone Antelmo Davey MD Unavailable Deacon Valladares MD Unavailable Shanna June [facility] Unavailable [phone] Tj Najera Unavailable [phone] Anna Mendez APRN.[facility] Primary Care Provider Thomas Alas MD Primary Care Provider [phone] Georgina Barkley MD Unavailable [phone] Source Comments In the event this information is protected by the Federal Confidentiality of Alcohol and Drug AbusePatient Records regulations: The Federal rules restrict any use of the information to criminally investigate or prosecute any alcohol or drug abuse patient.[facility] Encounter Details Date Type Department Care Team (Late st Contact Info) Description 09/28/2022 Patient Msg BMI [facility] REJ [address] [place], [place] [id number] Provider, Ccf Nutritioin Summary Social History Tobacco Use Types Packs/Day [...] PHQ-2 Answer Date Recorded PHQ-2 score 2 09/21/2022 Hunger Vital Sign Answer Date Recorded Within [...] place to sleep or slept in a chcf (including now)? No 06/20/2022 Area Deprivation Index Answer Date Nayan rded National Score (1-100), lower number is lower ri sk 64 06/17/2022 State Score (1-10), lower number is lower risk 4 06/17/2022 Data from: https://www.neighborhoodatlas.medicine.[facility].edu/. Last address used for calculation [address] 06/17/2022 Education Answer Date Recorded What is the highest level of school you have completed or the highest degree you have received? Master's degree (e.g., MA, MS, Birgit, MEd, STENOGRAPHIC COURT REPORTER, IVANIA) 10/15/2019 Comments No Sex and Gender [...] 12:30 PM EDT Infusion Center Hematology/Oncology [address] [place] [address] [place] [address] Hodges dressing and cap change;Labs as needed per patient 09/22/2024 12:30 PM EDT Office Visit Gastroenterology [address] [address] Grupo Hwang [address] [place] [address] GRUPO / PAGE [id number] 09/22/2024 1:00 PM EDT Office Visit Gastroenterology [address] [place] [id number] Georgina Barkley MD [address] [address] HPN / PAGE [phone] 09/25/2024 9:00 AM EDT Infusion Center Hematology/Oncology [address] [place] [address] [place] [address] Hodges dressing and cap change;Labs as needed per patient 09/29/2024 10:15 AM EDT Appointment [facility] Endoscopy - ENDO [address] [place] [address] [place] [address] [place] [address] EGD 10/02/2024 9:00 AM EDT Infusion Center Hematology/Oncology [address] [place] [address] [place] [address] Hodges dressing and cap change;Labs as needed per patient 10/09/2024 9:00 AM EDT Infusion Center Hematology/Oncology [address] [place] [address] [place] [address] Hodges dressing and cap change;Labs as needed per patient documented as of this encounter Visit Diagnoses Not on filedocumented in this encounter Additional Health Concerns Infection Onset Date Last Indicated Resolved Time COVID-19 Rule-Out 06/06/2023 06/06/2023 06/06/2023 6:19 PM EDT documented as of this encounter Care Teams Adapted Physical Education Specialist Relationship Specialty Start Date End Date Anna Mendez, SLIM.IT APPLICATION SUPPORT ANALYST [address] [address] PCP - General 06/16/22 07/29/23 Thomas Alas MD [address] [place] [address] PCP - General Family Medicine 07/30/23 Antelmo Davey MD [address] [place] [address] 09/25/19 [place] [address] [place] [address] Consulting General Surgery 09/25/19 Shanna June CNP [address] [place] [address] Referring Family Medicine 10/19/19 Tj Najera PA [address] [address] Referring Family Medicine 05/13/22 Georgina Barkley MD [address] [place] [address] Home Parenteral Nutrition Provider Gastroenterology 10/14/23 documented as of this encounter
--- OUTSIDE RECORDS SUMMARY | 2024-09-15 16:38 | XMS_ITS | Encounter Summary ---
Author Organization [facility] Address [address] [place], [place] [id number] Care Team Providers Care Coating Machine Feeder Name Role Phone Antelmo Davey MD Unavailable [phone] Deacon Valladares MD Unavailable [phone] Shanna June BANK VAULT CUSTODIAN Unavailable [phone] Rachel Foley MD Primary Care Provider [phone] Tj Najera Unavailable [phone] Anna Mendez APRN.[facility] Primary Care Provider Thomas Alas MD Primary Care Provider + Georgina Barkley MD Unavailable [phone] Source Comments In the event this information is protected by the Federal Confidentiality of Alcohol and Drug AbusePatient Records regulations: The Federal rules restrict any use of the information to criminally investigate or prosecute any alcohol or drug abuse patient.[facility] Encounter Details Date Type Department Care Team (Late st Contact Info) Description 06/13/2022 Patient Msg Gastroenterology [address] [place] [id number] Kasie Avalos MD [address] [place], [place] [phone] Appointment Request Social History Tobacco Use Types [...] is lower risk 4 06/17/2022 Data from: https://www.neighborhoodatlas.medicine.[facility].edu/. Last address used for calculation [address] 06/17/2022 Education Answer Date Recorded What is the highest level of school you have completed or the highest degree you have received? Master's degree (e.g., MA, MS, Birgit, MEd, AERODYNAMICIST, IVANIA) 10/15/2019 Comments No Sex and Gender [...] 09/18/2024 12:30 PM EDT Infusion Center Hematology/Oncology [address] [place] [address] [place] [address] Hodges dressing and cap change;Labs as needed per patient 09/22/2024 12:30 PM EDT Office Visit Gastroenterology [address] [place] [id number] Custodial Officer, Hpn [address] [place] [address] HPN / PAGE [phone] 09/22/2024 1:00 PM EDT Office Visit Gastroenterology [address] [place] [phone] Georgina Barkley MD [facility] [address] [place], [place] [id number] HPN / PAGE [id number] 09/25/2024 9:00 AM EDT Infusion Center Hematology/Oncology [address] [place] [address] [place] [address] Hodges dressing and cap change;Labs as needed per patient 09/29/2024 10:15 AM EDT Appointment [facility] Endoscopy - ENDO [address] [place] [address] [place] [address] [place] [address] EGD 10/02/2024 9:00 AM EDT Infusion Center Hematology/Oncology [address] [place] [address] [place] [address] Hodgse dressing and cap change;Labs as needed per patient 10/09/2024 9:00 AM EDT Infusion Center Hematology/Oncology [address] [place] [address] [place] [address] Hodges dressing and cap change;Labs as needed per patient documented as of this encounter Visit Diagnoses Not on filedocumented in this encounter Additional Health Concerns Infection Onset Date Last Indicated Resolved Time COVID-19 Rule-Out 06/06/2023 06/06/2023 06/06/2023 6:19 PM EDT documented as of this encounter Care Teams Coating Machine Feeder Relationship Specialty Start Date End Date Rachel Foley MD [address] [place] [address] PCP - General Family Medicine 01/19/22 06/15/22 Anna Mendez, SLIM.BANK VAULT CUSTODIAN [address] [facility] [address] [place] [address] PCP - General 06/16/22 07/29/23 Thomas Alas MD 1265 [place] [address] PCP - General Family Medicine 07/30/23 Antelmo Davey MD [address] [place] [address] 09/25/19 [place] [address] [place] [address] Consulting General Surgery 09/25/19 Shanna June CNP [address] [place] [address] Referring Family Medicine 10/19/19 Tj Najera PA [address] [address] Referring Family Medicine 05/13/22 Georgina Barkley MD [address] [place] [address] Home Parenteral Nutrition Provider Gastroenterology 10/14/23 documented as of this encounter
--- OUTSIDE RECORDS SUMMARY | 2024-09-15 16:38 | XMS_ITS | Encounter Summary ---
Author Organization [facility] Address [address] [place] [address] Care Team Providers Care Contact Lens Inspector Name Role Phone Antlemo Davey MD Unavailable [phone] Deacon Valladares MD Unavailable [phone] Shanna June MINIATURE MODEL MAKER Unavailable + [phone] Rachel Foley MD Primary Care Provider [phone] Tj Najera Unavailable [phone] Anna Mendez APRN.[facility] Primary Care Provider Thomas Alas MD Primary Care Provider + Georgina Barkley MD Unavailable [phone] Source Comments In the event this information is protected by the Federal Confidentiality of Alcohol and Drug AbusePatient Records regulations: The Federal rules restrict any use of the information to criminally investigate or prosecute any alcohol or drug abuse patient.[facility] Encounter Details Date Type Department Care Team (Late st Contact Info) Description 06/13/2022 Patient Msg General Surgery [address] [facility] [address] [place] [phone] Breanna Boyer APRN.MINIATURE MODEL MAKER [address] [place] [address] Appointment Request Social History Tobacco Use Types [...] is lower risk 4 06/17/2022 Data from: https://www.neighborhoodatlas.med[facility].edu/. Last address used for calculation [address] 46 06/17/2022 Education Answer Date Recorded What is the highest level of school you have completed or the highest degree you have received? Master's degree (e.g., MA, MS, Birgit, MEd, COLLAR STITCHER, IVANIA) 10/15/2019 Comments No Sex and Gender [...] EDT [facility] Center Hematology/Oncology [address] [place] [address] [place] [address] Hodges dressing and cap change;Labs as needed per patient 09/22/2024 12:30 PM EDT Office Visit Gastroenterology 2048 [place] [address] Construction Assistant, Hpn [address] [place] [address] HPN / PAGE [phone] 09/22/2024 1:00 PM EDT Office Visit Gastroenterology [address] [place] [phone] Georgina Barkley MD [facility] [address] [place] [address] HPN / PAGE [id number] 09/25/2024 9:00 AM EDT Infusion Center Hematology/Oncology [address] [place] [address] [place] [address] Hodges dressing and cap change;Labs as needed per patient 09/29/2024 10:15 AM EDT Appointment [facility] Endoscopy - ENDO [address] [place] [address] [place] [address] [place] [address] EGD 10/02/2024 9:00 AM EDT Infusion Center Hematology/Oncology [address] [place] [address] [place] [address] Hodges dressing and cap change;Labs as needed per patient 10/09/2024 9:00 AM EDT Infusion Center Hematology/Oncology [address] [place] [address] [place] [address] Hodges dressing and cap change;Labs as needed per patient documented as of this encounter Visit Diagnoses Not on filedocumented in this encounter Additional Health Concerns Infection Onset Date Last Indicated Resolved Time COVID-19 Rule-Out 06/06/2023 06/06/2023 06/06/2023 6:19 PM EDT documented as of this encounter Care Teams Contact Lens Inspector Relationship Specialty Start Date End Date Rachel Foley MD [address] [place] [address] PCP - General Family Medicine 01/19/22 06/15/22 Anna Mendez, LPN CARE MANAGER.MINIATURE MODEL MAKER [address] [facility] 150 [place] [address] PCP - General 06/16/22 07/29/23 Thomas Alas MD [address] [place] [address] PCP - General Family Medicine 07/30/23 Antelmo Davey MD [address] [facility] [place] [address] 09/25/19 [place] [address] [place] [address] Consulting General Surgery 09/25/19 Shanna June CNP [address] [place] [address] Referring Family Medicine 10/19/19 Tj Najera PA [address] [address] Referring Family Medicine 05/13/22 Georgina Barkley MD [address] [place] [address] Home Parenteral Nutrition Provider Gastroenterology 10/14/23 documented as of this encounter
--- OUTSIDE RECORDS SUMMARY | 2024-09-15 16:38 | XMS_ITS | Encounter Summary ---
Author Organization [facility] Address [address] [place], [place] [address] Care Team Providers Care Marine Propulsion Technician Name Role Phone Antelmo Davey MD Unavailable [phone] Deacon Valladares MD Unavailable [phone] Shanna June FRUIT FARMER Unavailable [phone] Rachel Foley MD Primary Care Provider [phone] Tj Najera Unavailable [phone] Anna Mendez APRN.[facility] Primary Care Provider Thomas Alas MD Primary Care Provider + Georgina Barkley MD Unavailable Source Comments In the event this information is protected by the Federal Confidentiality of Alcohol and Drug AbusePatient Records regulations: The Federal rules restrict any use of the information to criminally investigate or prosecute any alcohol or drug abuse patient.[facility] Encounter Details Date Type Department Care Team (Late st Contact Info) Description 02/04/2022 Patient Msg Nutrition Therapy [address] [place] [address] Provider, [facility] Nutrition Summary Social History Tobacco Use Types [...] N ot on file 07/04/2021 Data from: https://www.neighborhoodatlas.medicine.[facility].edu/. Last address used for calculation [id number] [place] [address] RD 46 07/04/2021 Education Answer Date Recorded What is the highest level of school you have completed or the highest degree you have received? Master's degree (e.g., MA, MS, Birgit, MEd, MENTAL HEALTH AIDES TEACHER, IVANIA) 10/15/2019 Comments No Sex and Gender [...] Description 09/18/2024 12:30 PM EDT [facility] Center Hematology/Oncology [address] [place] [address] [place] [address] Hodges dressing and cap change;Labs as needed per patient 09/22/2024 12:30 PM EDT Office Visit Gastroenterology [address] [place] [id number] Index Editor, Hpn [address] [place] [address] HPN / PAGE [id number] 09/22/2024 1:00 PM EDT Office Visit Gastroenterology [address] [place] 1024106 Georgina Barkley MD [facility] [address] [place], [place] [address] HPN / PAGE [id number] 09/25/2024 9:00 AM EDT Infusion Center Hematology/Oncology [address] [place] [address] [place] [address] Hodges dressing and cap change;Labs as needed per patient 09/29/2024 10:15 AM EDT Appointment [facility] Endoscopy - ENDO [address] [place] [address] [place] [address] [place] [address] EGD 10/02/2024 9:00 AM EDT Infusion Center Hematology/Oncology [address] [place] [address] [place] [address] Hodges dressing and cap change;Labs as needed per patient 10/09/2024 9:00 AM EDT Infusion Center Hematology/Oncology [address] [place] [address] [place] [address] Hodges dressing and cap change;Labs as needed per patient documented as of this encounter Visit Diagnoses Not on filedocumented in this encounter Additional Health Concerns Infection Onset Date Last Indicated Resolved Time COVID-19 Rule-Out 06/06/2023 06/06/2023 06/06/2023 6:19 PM EDT documented as of this encounter Care Teams Marine Propulsion Technician Relationship Specialty Start Date End Date Rachel Foley MD [address] [place] [address] PCP - General Family Medicine 01/19/22 06/15/22 Anna Mendez APRN.FRUIT FARMER [address] [address] PCP - General 06/16/22 07/29/23 Thomas Alas MD [address] [place] [address] PCP - General Family Medicine 07/30/23 Antelmo Davey MD [address] [facility] [place] [address] 09/25/19 [place] [address] [place] [address] Consulting General Surgery 09/25/19 Shanna June CNP [address] [place] [address] Referring Family Medicine 10/19/19 Tj Najera PA [address] [address] Referring Family Medicine 05/13/22 Georgina Barkley MD [address] [place] [address] Home Parenteral Nutrition Provider Gastroenterology 10/14/23 documented as of this encounter
--- OUTSIDE RECORDS SUMMARY | 2024-09-15 16:38 | XMS_ITS | Encounter Summary ---
Author Organization [facility] Address [address] [place] [address] Care Team Providers Care Nurses' Aide Name Role Phone Antelmo Davey MD Unavailable [phone] Deacon Valladares MD Unavailable [phone] Shanna June FACING BASTER JUMPBASTING Unavailable [phone] Rachel Foley MD Primary Care Provider [phone] Tj Najera Unavailable [phone] Anna Mendez APRN.[facility] Primary Care Provider Thomas Alas MD Primary Care Provider + Georgina Barkley MD Unavailable [phone] Source Comments In the event this information is protected by the Federal Confidentiality of Alcohol and Drug AbusePatient Records regulations: The Federal rules restrict any use of the information to criminally investigate or prosecute any alcohol or drug abuse patient.[facility] Encounter Details Date Type Department Care Team (Late st Contact Info) Description 03/09/2022 Patient Msg Family Medicine [address] [place] [address] Provider, Ccf Follow up appointment - please call to schedule Social History Tobacco Use Types Packs/Day Years [...] N ot on file 03/02/2022 Data from: https://www.neighborhoodatlas.medicine.[facility].edu/. Last address used for calculation [address] [place] [address] RD 46 03/02/2022 Education Answer Date Recorded What is the highest level of school you have completed or the highest degree you have received? Master's degree (e.g., MA, MS, Birgit, MEd, SECOND CHEF, IVANIA) 10/15/2019 Comments No Sex and [...] 12:30 PM EDT Infusion Center Hematology/Oncology [address] [place] [address] [place] [address] Hodges dressing and cap change;Labs as needed per patient 09/22/2024 12:30 PM EDT Office Visit Gastroenterology 2048 [place] [address] Dramatic Director, Hpn [address] [place] [id number] HPN / PAGE [phone] 09/22/2024 1:00 PM EDT Office Visit Gastroenterology 2048 [place] [address] Georgina Barkley MD [facility] [address] [place], [place] [address] HPN / PAGE [phone] 09/25/2024 9:00 AM EDT Infusion Center Hematology/Oncology [address] [place] [address] [place] [address] Hodges dressing and cap change;Labs as needed per patient 09/29/2024 10:15 AM EDT Appointment [facility] Endoscopy - ENDO [address] [place] [address] [place] [address] [place] [address] EGD 10/02/2024 9:00 AM EDT Infusion Center Hematology/Oncology [address] [place] [address] [place] [address] Hodges dressing and cap change;Labs as needed per patient 10/09/2024 9:00 AM EDT Infusion Center Hematology/Oncology [address] [place] [address] [place] [address] Hodges dressing and cap change;Labs as needed per patient documented as of this encounter Visit Diagnoses Not on filedocumented in this encounter Additional Health Concerns Infection Onset Date Last Indicated Resolved Time COVID-19 Rule-Out 06/06/2023 06/06/2023 06/06/2023 6:19 PM EDT documented as of this encounter Care Teams Nurses' Aide Relationship Specialty Start Date End Date Rachel Foley MD [address] [place] [address] PCP - General Family Medicine 01/19/22 06/15/22 Anna Mendez, TREE FRUIT AND NUT FARMING SUPERVISOR.FACING BASTER JUMPBASTING [address] [address] PCP - General 06/16/22 07/29/23 Thomas Alas MD 1265 [place] [address] PCP - General Family Medicine 07/30/23 Antelmo Davey MD [address] [place] [address] 09/25/19 [place] [address] [place] [address] Consulting General Surgery 09/25/19 Shanna June CNP [address] [place] [address] Referring Family Medicine 10/19/19 Tj Najera PA [address] [address] Referring Family Medicine 05/13/22 Georgina Barkley MD [address] [place] [address] Home Parenteral Nutrition Provider Gastroenterology 10/14/23 documented as of this encounter
--- OUTSIDE RECORDS SUMMARY | 2024-09-15 16:38 | XMS_ITS | Encounter Summary ---
Author Organization [facility] Address [address] [place] [address] Care Team Providers Care Driver'S License Reviewing Officer Name Role Phone Antelmo Davey MD Unavailable Deacon Valladares MD Unavailable Shanna June CNP Unavailable [phone] Shanna June CNP Primary Care Provider [phone] Rachel Foley MD Primary Care Provider [phone] Tj Najera Unavailable [phone] Anna Mendez APRN.[facility] Primary Care Provider Thomas Alas MD Primary Care Provider +[phone] Georgina Barkley MD Unavailable [phone] Source Comments In the event this information is protected by the Federal Confidentiality of Alcohol and Drug AbusePatient Records regulations: The Federal rules restrict any use of the information to criminally investigate or prosecute any alcohol or drug abuse patient.[facility] Encounter Details Date Type Department Care Team (Late st Contact Info) Description 03/26/2020 Get Medical Advice General Surgery [address] [place] [address] [place] [address] [place] [address] RE: Visit Follow Up Question Social History Tobacco [...] N ot on file 01/21/2020 Data from: https://www.neighborhoodatlas.medicine.[facility].edu/. Last address used for calculation Not on file 01/21/2020 Education Answer Date Recorded What is the highest level of school you have completed or the highest degree you have received? Master's degree (e.g., MA, MS, Birgit, MEd, SCIENCE INTERN, IVANIA) 10/15/2019 Comments No Sex and Gender [...] 09/18/2024 12:30 PM EDT Infusion Center Hematology/Oncology [address] [place] [address] [place] [address] Carroll dressing and cap change;Labs as needed per patient 09/22/2024 12:30 PM EDT Office Visit Gastroenterology [address] [address] School Superintendent, Hpn [address] [place] [address] HPN / PAGE [phone] 09/22/2024 1:00 PM EDT Office Visit Gastroenterology [address] [place] [phone] Georgina Barkley MD [facility] [address] [place] [id number] HPN / PAGE [phone] 09/25/2024 9:00 AM EDT Infusion Center Hematology/Oncology [address] [place] [address] [place] [address] Hodges dressing and cap change;Labs as needed per patient 09/29/2024 10:15 AM EDT Appointment [facility] Endoscopy - ENDO [address] [place] [phone] [place] [address] [place] [phone] EGD 10/02/2024 9:00 AM EDT Infusion Center Hematology/Oncology [address] [place] [address] [place] [address] Hodges dressing and cap change;Labs as needed per patient 10/09/2024 9:00 AM EDT Infusion Center Hematology/Oncology [address] [place] [address] [place] [address] Hodges dressing and cap change;Labs as needed [...] documented as of this encounter Care Teams Driver'S License Reviewing Officer Relationship Specialty Start Date End Date Shanna June CNP [address] [place] [address] PCP - General Family Medicine 01/31/20 01/18/22 Rachel Foley MD [address] [place] [address] PCP - General Family Medicine 01/19/22 06/15/22 Anna Mendez, LIFEGUARD.MACROECONOMICS PROFESSOR [address] [place] [address] PCP - General 06/16/22 07/29/23 Thomas Alas MD [address] [place] [address] PCP - General Family Medicine 07/30/23 Antelmo Davey MD [address] [place] [address] 09/25/19 [place] [address] [place] [address] Consulting General Surgery 09/25/19 Shanna June, BETH [address] [place] [address] Referring Family Medicine 10/19/19 Tj Najera PA [address] [place] [address] [place] [address] Referring Family Medicine 05/13/22 Georgina Barkley MD [address] [place] [address] Home Parenteral Nutrition Provider Gastroenterology 10/14/23 documented as of this encounter
--- OUTSIDE RECORDS SUMMARY | 2024-09-15 16:38 | XMS_ITS | Encounter Summary ---
Author Organization [facility] [place] [facility] Address [address] [place] [address] Care Team Providers Care Custom Car Builder Name Role Phone Antelmo Davey MD Unavailable [phone] Deacon Valladares MD Unavailable Shanna June CNP Unavailable +[phone] Shanna June CNP Primary Care Provider [phone] Rachel Foley MD Primary Care Provider [phone] Tj Najera Unavailable [phone] Anna Mendez APRN.[facility] Primary Care Provider Thomas Alas MD Primary Care Provider +-[phone] Georgina Barkley MD Unavailable [phone] Source Comments In the event this information is protected by the Federal Confidentiality of Alcohol and Drug AbusePatient Records regulations: The Federal rules restrict any use of the information to criminally investigate or prosecute any alcohol or drug abuse patient.[facility] [place] [facility] Encounter Details Date Type Department Care Team (Late st Contact Info) Description 01/07/2022 Patient Msg [facility] [address] [place] [address] Justine Shabazz PA-C [address] [place], [place] [id number] Request an Appointment Social History Tobacco Use Types Packs/Day [...] on file 07/04/2021 Data from: https://www.neighborhoodatlas.medicine.[facility].edu/. Last address used for calculation [address] 07/04/2021 Education Answer Date Recorded What is the highest level of school you have completed or the highest degree you have received? Master's degree (e.g., MA, MS, Birgit, MEd, FIELD HOCKEY COACH, IVANIA) 10/15/2019 Comments No Sex and Gender [...] 09/18/2024 12:30 PM EDT Infusion Center Hematology/Oncology [address] [place] [address] [place] [address] Carroll dressing and cap change;Labs as needed per patient 09/22/2024 12:30 PM EDT Office Visit Gastroenterology [address] [address] Rfid Manager, Grupo [address] [place] [address] HPN / PAGE [id number] 09/22/2024 1:00 PM EDT Office Visit Gastroenterology [address] [place] [id number] Georgina Barkley MD [facility] [address] [place] [id number] HPN / PAGE [phone] 09/25/2024 9:00 AM EDT Infusion Center Hematology/Oncology [address] [place] [address] [place] [address] Hodges dressing and cap change;Labs as needed per patient 09/29/2024 10:15 AM EDT Appointment [facility] Endoscopy - ENDO [address] [place] [address] [place] [address] [place] [address] EGD 10/02/2024 9:00 AM EDT Infusion Center Hematology/Oncology [address] [place] [address] [place] [address] Hodges dressing and cap change;Labs as needed per patient 10/09/2024 9:00 AM EDT Infusion Center Hematology/Oncology [address] [place] [address] [place] [address] Hodges dressing and cap change;Labs as needed per patient documented as of this encounter Visit Diagnoses Not on filedocumented in this encounter Additional Health Concerns Infection Onset Date Last Indicated Resolved Time COVID-19 Rule-Out 01/29/2022 01/29/2022 01/29/2022 6:59 PM EST COVID-19 Rule-Out 06/06/2023 06/06/2023 06/06/2023 6:19 PM EDT documented as of this encounter Care Teams Custom Car Builder Relationship Specialty Start Date End Date Shanna June CNP [address] [place] [address] PCP - General Family Medicine 01/31/20 01/18/22 Rachel Foley MD [address] [place] [address] PCP - General Family Medicine 01/19/22 06/15/22 Anna Mendez APRN.EMBROIDERY FINISHER [address] [address] PCP - General 06/16/22 07/29/23 Thomas Alas MD [address] [place] [address] PCP - General Family Medicine 07/30/23 Antelmo Davey MD [address] [facility] [place] [address] 09/25/19 [place] [address] [place] [address] Consulting General Surgery 09/25/19 Shanna June, BETH [address] [place] [address] Referring Family Medicine 10/19/19 Tj Najera PA [address] [address] Referring Family Medicine 05/13/22 Georgina Barkley MD [address] [place] [address] Home Parenteral Nutrition Provider Gastroenterology 10/14/23 documented as of this encounter
--- OUTSIDE RECORDS SUMMARY | 2024-09-15 16:38 | XMS_ITS | Encounter Summary ---
Author Organization [facility] Address [address] [place] [address] Care Team Providers Care Concession Cashier Name Role Phone Antelmo Davey MD Unavailable Deacon Valladares MD Unavailable [phone] Shanna June [facility] Unavailable [phone] Tj Najera Unavailable [phone] Anna Mendez APRN.[facility] Primary Care Provider Thomas Alas MD Primary Care Provider [phone] Georgina Barkley MD Unavailable [phone] Source Comments In the event this information is protected by the Federal Confidentiality of Alcohol and Drug AbusePatient Records regulations: The Federal rules restrict any use of the information to criminally investigate or prosecute any alcohol or drug abuse patient.[facility] Encounter Details Date Type Department Care Team (Late st Contact Info) Description 10/18/2022 Get Medical Advice Gastroenterology [address] [place] [id number] Kasie Avalos MD [address] [place] [address] Worsening Symptoms Social History Tobacco Use Types Packs/Day [...] Answer Date Recorded PHQ-2 score 2 10/04/2022 Hunger Vital Sign Answer Date Recorded Within [...] place to sleep or slept in a skilled nursing (including now)? No 06/20/2022 Area Deprivation Index Answer Date Nayan rded National Score (1-100), lower number is lower ri sk 64 06/17/2022 State Score (1-10), lower number is lower risk 4 06/17/2022 Data from: https://www.neighborhoodatlas.medicine.[facility].edu/. Last address used for calculation [address] 06/17/2022 Education Answer Date Recorded What is the highest level of school you have completed or the highest degree you have received? Master's degree (e.g., MA, MS, Birgit, MEd, MARBLE FINISHER, IVANIA) 10/15/2019 Comments No Sex and Gender [...] 12:30 PM EDT Infusion Center Hematology/Oncology [address] [place] [address] [place] [address] Hodges dressing and cap change;Labs as needed per patient 09/22/2024 12:30 PM EDT Office Visit Gastroenterology [address] [address] Building Official, Hpn [address] [place] [address] HPN / PAGE [id number] 09/22/2024 1:00 PM EDT Office Visit Gastroenterology [address] [place] [id number] Georgina Barkley MD [facility] [address] [place] [phone] HPN / PAGE [id number] 09/25/2024 9:00 AM EDT Infusion Center Hematology/Oncology [address] [place] [address] [place] [address] Hodges dressing and cap change;Labs as needed per patient 09/29/2024 10:15 AM EDT Appointment [facility] Endoscopy - ENDO [address] [place] [phone] [place] [address] [place] [id number] EGD 10/02/2024 9:00 AM EDT Infusion Center Hematology/Oncology [address] [place] [address] [place] [address] Hodges dressing and cap change;Labs as needed per patient 10/09/2024 9:00 AM EDT Infusion Center Hematology/Oncology [address] [place] [address] [place] [address] Hodges dressing and cap change;Labs as needed per patient documented as of this encounter Visit Diagnoses Not on filedocumented in this encounter Additional Health Concerns Infection Onset Date Last Indicated Resolved Time COVID-19 Rule-Out 06/06/2023 06/06/2023 06/06/2023 6:19 PM EDT documented as of this encounter Care Teams Concession Cashier Relationship Specialty Start Date End Date Anna Mendez APRN.CONSULTING SERVICES PROJECT MANAGER [address] [facility] [address] [place] [address] PCP - General 06/16/22 07/29/23 Thomas Alas MD [address] [facility] [place] [address] PCP - General Family Medicine 07/30/23 Antelmo Davey MD [address] [facility] [place] [address] 09/25/19 [place] [address] [place] [address] Consulting General Surgery 09/25/19 Shanna June CNP [address] [place] [address] Referring Family Medicine 10/19/19 Tj Najera PA [address] [address] Referring Family Medicine 05/13/22 Georgina Barkley MD [address] [place] [address] Home Parenteral Nutrition Provider Gastroenterology 10/14/23 documented as of this encounter
--- OUTSIDE RECORDS SUMMARY | 2024-09-15 16:38 | XMS_ITS | Encounter Summary ---
Author Organization [facility] Address [address] [place], [place] [id number] Care Team Providers Care Lacing Operator Name Role Phone TiffanieMarcos DO Primary Care Provider [phone] Antelmo Davey MD Unavailable [phone] Deacon Valladares MD Unavailable [phone] Shanna June CNP Unavailable +[phone] Shanna June HAIR SPINNER Primary Care Provider [phone] Rachel Foley MD Primary Care Provider [phone] Tj Najera Unavailable [phone] Anna Mendez APRN.HAIR SPINNER Primary Care Provider Thomas Alas MD Primary Care Provider + Geogrina Barkley MD Unavailable [phone] Source Comments In the event this information is protected by the Federal Confidentiality of Alcohol and Drug AbusePatient Records regulations: The Federal rules restrict any use of the information to criminally investigate or prosecute any alcohol or drug abuse patient.[facility] Encounter Details Date Type Department Care Team (Late st Contact Info) Description 01/17/2020 Get Medical Advice [facility] [address] [place], [place] [id number] Provider, Ccf RE: Upcoming Appointment Question Social History Tobacco Use Types Packs/Day [...] N ot on file 01/21/2020 Data from: https://www.neighborhoodatlas.medicine.[facility].edu/. Last address used for calculation Not on file 01/21/2020 Education Answer Date Recorded What is the highest level of school you have completed or the highest degree you have received? Master's degree (e.g., MA, MS, Birgit, MEd, ELECTRONICS ENGINEERING TECHNOLOGIST, IVANIA) 10/15/2019 Comments Unknown Sex and Gender [...] 09/18/2024 12:30 PM EDT Infusion Center Hematology/Oncology [address] [place] [address] [place] [address] Hodges dressing and cap change;Labs as needed per patient 09/22/2024 12:30 PM EDT Office Visit Gastroenterology 2048 [place] [address] Clean Rice Grader And Reel Tender, Hpn [address] [place] [address] HPN / PAGE [id number] 09/22/2024 1:00 PM EDT Office Visit Gastroenterology [address] [place] [phone] Georgina Barkley MD [facility] [address] [place] [address] HPN / PAGE [id number] 09/25/2024 9:00 AM EDT Infusion Center Hematology/Oncology [address] [place] [address] [place] [address] Hodges dressing and cap change;Labs as needed per patient 09/29/2024 10:15 AM EDT Appointment [facility] Endoscopy - ENDO [address] [place] [address] [place] [address] [place] [address] EGD 10/02/2024 9:00 AM EDT Infusion Center Hematology/Oncology [address] [place] [address] [place] [address] Hodges dressing and cap change;Labs as needed per patient 10/09/2024 9:00 AM EDT Infusion Center Hematology/Oncology [address] [place] [address] [place] [address] Hodges dressing and cap change;Labs as needed [...] documented as of this encounter Care Teams Lacing Operator Relationship Specialty Start Date End Date Marcos Moreno DO [address] [place], [place] [address]D[address]y [place] [address] PCP - General Dry Cleaning Teacher 09/25/19 01/30/20 Shanna June CNP [address] [place] [place] [address] PCP - General Family Medicine 01/31/20 01/18/22 Rachel Foley MD [address] [place] [address] PCP - General Family Medicine 01/19/22 06/15/22 Anna Mendez APRN.HAIR SPINNER [address] [address] PCP - General 06/16/22 07/29/23 Thomas Alas MD [address] [place] [address] PCP - General Family Medicine 07/30/23 Antelmo Davey MD 521 [place] [address] 09/25/19 [place] [address] [place] [address] Consulting General Surgery 09/25/19 Shanna June CNP [address] [place] [place] [address] Referring Family Medicine 10/19/19 Tj Najera PA [address] [address] Referring Family Medicine 05/13/22 Georgina Barkley MD [address] [place] [phone] Home Parenteral Nutrition Provider Gastroenterology 10/14/23 documented as of this encounter
--- OUTSIDE RECORDS SUMMARY | 2024-09-15 16:38 | XMS_ITS | Encounter Summary ---
Author Organization [facility] Address [address] [place] [address] Care Team Providers Care Clay Miner Name Role Phone Antelmo Davey MD Unavailable Deacon Valladares MD Unavailable [phone] Shanna June CNP Unavailable [phone] Shanna June CNP Primary Care Provider [phone] Rachel Foley MD Primary Care Provider [phone] Tj Najera Unavailable [phone] Anna Mendez APRN.[facility] Primary Care Provider Thomas Alas MD Primary Care Provider +-[phone] Georgina Barkley MD Unavailable [phone] Source Comments In the event this information is protected by the Federal Confidentiality of Alcohol and Drug AbusePatient Records regulations: The Federal rules restrict any use of the information to criminally investigate or prosecute any alcohol or drug abuse patient.[facility] Encounter Details Date Type Department Care Team (Late st Contact Info) Description 03/25/2020 Get Medical Advice Gastroenterology [address] [address] Kasie Avalos MD [address] [place] [address] RE: Visit Follow Up Question Social History [...] N ot on file 01/21/2020 Data from: https://www.neighborhoodatlas.medicine.[facility].edu/. Last address used for calculation Not on file 01/21/2020 Education Answer Date Recorded What is the highest level of school you have completed or the highest degree you have received? Master's degree (e.g., MA, MS, Birgit, MEd, SOLDERING MACHINE OPERATOR AUTOMATIC, IVANIA) 10/15/2019 Comments No Sex and Gender [...] 12:30 PM EDT Infusion Center Hematology/Oncology [address] [place] [address] [place] [address] Carroll dressing and cap change;Labs as needed per patient 09/22/2024 12:30 PM EDT Office Visit Gastroenterology [address] [address] Television Repairman, Hpn [address] [place] [address] HPN / PAGE [id number] 09/22/2024 1:00 PM EDT Office Visit Gastroenterology [address] [place] [phone] Georgina Barkley MD [facility] [address] [place] [id number] HPN / PAGE [id number] 09/25/2024 9:00 AM EDT Infusion Center Hematology/Oncology [address] [place] [address] [place] [address] Hodges dressing and cap change;Labs as needed per patient 09/29/2024 10:15 AM EDT Appointment [facility] Endoscopy - ENDO [address] [place] [phone] [place] [address] [place] [id number] EGD 10/02/2024 9:00 AM EDT Infusion Center Hematology/Oncology [address] [place] [address] [place] [address] Hodges dressing and cap change;Labs as needed per patient 10/09/2024 9:00 AM EDT Infusion Center Hematology/Oncology [address] [place] [address] [place] [address] Hodges dressing and cap change;Labs as needed [...] documented as of this encounter Care Teams Clay Miner Relationship Specialty Start Date End Date Shanna June CNP [address] [place] [address] PCP - General Family Medicine 01/31/20 01/18/22 Rachel Foley MD [address] [place] [address] PCP - General Family Medicine 01/19/22 06/15/22 Anna Mendez, TEXTBOOK ASSOCIATE.SLOT TAG INSERTER [address] [address] PCP - General 06/16/22 07/29/23 Thomas Alas MD [address] [place] [address] PCP - General Family Medicine 07/30/23 Antelmo Davey MD [address] [place] [address] 09/25/19 [place] [address] [place] [address] Consulting General Surgery 09/25/19 Shanna June CNP [address] [place] [address] Referring Family Medicine 10/19/19 Tj Najera PA [address] [place] [address] [place] [address] Referring Family Medicine 05/13/22 Georgina Barkley MD [address] [place] [address] Home Parenteral Nutrition Provider Gastroenterology 10/14/23 documented as of this encounter
--- OUTSIDE RECORDS SUMMARY | 2024-09-15 16:38 | XMS_ITS | Encounter Summary ---
Author Organization [facility] Address [address] [place] [address] Care Team Providers Care Yarn Conditioner Name Role Phone Antelmo Davey MD Unavailable [phone] Deacon Valladares MD Unavailable [phone] Shanna June CNP Unavailable [phone] Shanna June CNP Primary Care Provider [phone] Rachel Foley MD Primary Care Provider [phone] Tj Najera Unavailable [phone] Anna Mendez APRN.[facility] Primary Care Provider Thomas Alas MD Primary Care Provider +-4 Georgina Barkley MD Unavailable [phone] Source Comments In the event this information is protected by the Federal Confidentiality of Alcohol and Drug AbusePatient Records regulations: The Federal rules restrict any use of the information to criminally investigate or prosecute any alcohol or drug abuse patient.[facility] Encounter Details Date Type Department Care Team (Late st Contact Info) Description 01/13/2022 Patient [facility]sg [facility] [address] [place] [address] Justine Shabazz PA-C [address] [place], [place] [phone] Appointment Cancellation Request Social History Tobacco Use [...] [facility].edu/. Last address used for calculation [address] 07/04/2021 Education Answer Date Recorded What is the highest level of school you have completed or the highest degree you have received? Master's degree (e.g., MA, MS, Birgit, MEd, BAKESHOP CLEANER, IVANIA) 10/15/2019 Comments No Sex and Gender [...] 09/18/2024 12:30 PM EDT Infusion Center Hematology/Oncology [address] [place] [address] [place] [address] Carroll dressing and cap change;Labs as needed per patient 09/22/2024 12:30 PM EDT Office Visit Gastroenterology [address] [address] Inspector Canned Food Reconditioning, Grupo [address] [place] [address] HPN / PAGE [id number] 09/22/2024 1:00 PM EDT Office Visit Gastroenterology [address] [place] [phone] Georgina Barkley MD [facility] [address] [place] [id number] HPN / PAGE [phone] 09/25/2024 9:00 AM EDT Infusion Center Hematology/Oncology [address] [place] [address] [place] [address] Hodges dressing and cap change;Labs as needed per patient 09/29/2024 10:15 AM EDT Appointment [facility] Endoscopy - ENDO [address] [place] [address] [place] [address] [place] [address] EGD 10/02/2024 9:00 AM EDT Infusion Center Hematology/Oncology [address] [place] [address] [place] [address] Hodges dressing and cap change;Labs as needed per patient 10/09/2024 9:00 AM EDT Infusion Center Hematology/Oncology [address] [place] [address] [place] [address] Hodges dressing and cap change;Labs as needed per patient documented as of this encounter Visit Diagnoses Not on filedocumented in this encounter Additional Health Concerns Infection Onset Date Last Indicated Resolved Time COVID-19 Rule-Out 01/29/2022 01/29/2022 01/29/2022 6:59 PM EST COVID-19 Rule-Out 06/06/2023 06/06/2023 06/06/2023 6:19 PM EDT documented as of this encounter Care Teams Yarn Conditioner Relationship Specialty Start Date End Date Shanna June CNP [address] [place] [address] PCP - General Family Medicine 01/31/20 01/18/22 Rachel Foley MD [address] [place] [address] PCP - General Family Medicine 01/19/22 06/15/22 Anna Mendez APRN.CLAM SHUCKER [address] [address] PCP - General 06/16/22 07/29/23 Thomas Alas MD [address] [place] [address] PCP - General Family Medicine 07/30/23 Antelmo Davey MD [address] [place] [address] 09/25/19 [place] [address] [place] [address] Consulting General Surgery 09/25/19 Shanna June, BETH [address] [place] [address] Referring Family Medicine 10/19/19 Tj Najera PA [address] [address] Referring Family Medicine 05/13/22 Georgina Barkley MD [address] [place] [address] Home Parenteral Nutrition Provider Gastroenterology 10/14/23 documented as of this encounter
--- OUTSIDE RECORDS SUMMARY | 2024-09-15 16:39 | XMS_ITS | Encounter Summary ---
Author Organization [facility] Address [address] [place] [address] Care Team Providers Care Supervisor Estimator And Drafter Name Role Phone Antelmo Davey MD Unavailable [phone] Deacon Valladares MD Unavailable Shanna June CNP Unavailable [phone] Tj Najera Unavailable [phone] Thomas Alas MD Primary Care Provider [phone] Georgina Barkley MD Unavailable [phone] Source Comments In the event this information is protected by the Federal Confidentiality of Alcohol and Drug AbusePatient Records regulations: The Federal rules restrict any use of the information to criminally investigate or prosecute any alcohol or drug abuse patient.[facility] Encounter Details Date Type Department Care Team (Late st Contact Info) Description 11/08/2023 Patient Msg [facility] [address] [place], [place] [id number] [place] [address] [place] [address] Appointment Request Social History Tobacco Use Types Packs/Day Years Used Date Smoking Tobacco: Never Smokeless Tobacco: Never Alcohol Use Standard Drinks/Week Comments Not Currently 0 (1 standard drink = 0.6 oz pur e alcohol) [facility] Utilities Answer Date Recorded In the [...] any clubs o r organizations such as orthodoxy groups, unions, fraternal or athletic groups, or [...] Answer Date Recorded PHQ-2 score 2 09/27/2023 [facility] [place] of Occupat ional Health - Occupational Stress [...] any time in the past 12 m [facility], were you homeless or living in a long term (including now)? No 10/11/2023 Area Deprivation Index Answer Date Nayan rded National Score (1-100), lower number is lower ri sk 64 06/17/2022 State Score (1-10), lower number is lower risk 4 06/17/2022 Data from: https://www.neighborhoodatlas.medicine.[facility].edu/. Last address used for calculation [address] [place] [address] [address] 06/17/2022 Education Answer Date Recorded What is the highest level of school you have completed or the highest degree you have received? Master's degree (e.g., MA, MS, Birgit, MEd, SUPERVISOR FINAL, IVANIA) 10/15/2019 Comments No Sex and Gender [...] 12:30 PM EDT Infusion Center Hematology/Oncology [address] [place] [address] [place] [address] [place] dressing and cap change;Labs as needed per patient 09/22/2024 12:30 PM EDT Office Visit Gastroenterology [address] [address] Transportation Inspector, Rodneyn [address] [place] [address] HPN / PAGE [id number] 09/22/2024 1:00 PM EDT Office Visit Gastroenterology [address] [place] [id number] Georgina Barkley MD [facility] [address] [place] [phone] HPN / PAGE [id number] 09/25/2024 9:00 AM EDT Infusion Center Hematology/Oncology [address] [place] [address] [place] [address] Hodges dressing and cap change;Labs as needed per patient 09/29/2024 10:15 AM EDT Appointment [facility] Endoscopy - ENDO [address] [place] [id number] [place] [address] [place] [address] EGD 10/02/2024 9:00 AM EDT Infusion Center Hematology/Oncology [address] [place] [address] [place] [address] Hodges dressing and cap change;Labs as needed per patient 10/09/2024 9:00 AM EDT Infusion Center Hematology/Oncology [address] [place] [address] [place] [address] Hodges dressing and cap change;Labs as needed per patient documented as of this encounter Visit Diagnoses Not on filedocumented in this encounter Care Teams Supervisor Estimator And Drafter Relationship Specialty Start Date End Date Thomas Alas MD [address] [place] [address] PCP - General Family Medicine 07/30/23 Antelmo Davey MD [address] [place] [address] 09/25/19 [place] [address] [place] [address] Consulting General Surgery 09/25/19 Shanna June CNP [address] [place] [address] Referring Family Medicine 10/19/19 Tj Najera PA 112 [facility] 150 [place] [address] Referring Family Medicine 05/13/22 Georgina Barkley MD [address] [place] [address] Home Parenteral Nutrition Provider Gastroenterology 10/14/23 documented as of this encounter
--- OUTSIDE RECORDS SUMMARY | 2024-09-15 16:39 | XMS_ITS | Encounter Summary ---
Author Organization [facility] Address [address] [place], [place] [id number] Care Team Providers Care Ordering Box Operator Name Role Phone TiffanieMarcos DO Primary Care Provider + [phone] Antelmo Davey MD Unavailable [phone] Deacon Valladares MD Unavailable [phone] Shanna June CNP Unavailable +[phone] Shanna June CAFE MANAGER Primary Care Provider [phone] Rachel Foley MD Primary Care Provider [phone] Tj Najera Unavailable [phone] Anna Mendez APRN.CAFE MANAGER Primary Care Provider Thomas Alas MD Primary Care Provider + Georgina Barkley MD Unavailable [phone] Source Comments In the event this information is protected by the Federal Confidentiality of Alcohol and Drug AbusePatient Records regulations: The Federal rules restrict any use of the information to criminally investigate or prosecute any alcohol or drug abuse patient.[facility] Encounter Details Date Type Department Care Team (Late st Contact Info) Description 10/04/2019 Radiology [facility] [address] [place] [address] Migue Burnett MD, [address] [place] [address] Social History Tobacco Use Types Packs/Day Years Used Date Smoking Tobacco: Never Smokeless Tobacco: Never Alcohol Use Standard Drinks/Week Comments Not Currently 0 (1 standard drink = 0.6 oz pur e alcohol) Comments Unknown Sex and Gender Information Value [...] have Coronavirus / COVID-19? No / Unsure 10/06/2019 1:00 PM EDT documented as of this encounter Progress Notes * David Marsh (Tech), Tech - 10/04/2019 9:19 AM EDT RADIOLOGY SERVICE PROGRESS NOTE SERVICE DATE: 10/04/2019 SERVICE TIME: 9:19 AM PATIENT IDENTITY VERIFICATION COMPLETED USING TWO [...] CREATININE: Creatinine Date Value Ref Range Status 09/29/2019 0.71 0.58 - 0.96 mg/dL Final eGFR-All Other Races Date Value Ref Range Status 09/29/2019 >60 . Final Comment: eGFR (Estimated GFR) Units of measure: mL/min/1.73 meters squared eGFR is derived from the reexpressed MDRD Study equation using the following parameters: serum creatinine, age, gender and race. The creatinine assay has been calibrated to be traceable to IDMS. An eGFR <60 mL/min/1.73m2 for >3 months is consistent with chronic kidney disease. Refer to KDOQI guidelines for clinical interpretation. In patients with unstable renal function, e.g. those with acute kidney injury, the eGFR may not accurately reflect actual GFR. eGFR- Date Value Ref Range Status 09/29/2019 >60 Final P.O.C.T. RESULTS: N/A October 04, [address] PERFORMED: No IV SITE: Ambulatory: Not applicable POST EXAM PIV STATUS: Not applicable PROCEDURE TYPE: NM GET: 1.0 mCi Tc99m SULFUR COLLOID was administered orally via 4 ounces of Egg Beaters,1.5 pieces of toast, with 8 ounces of water orally ADMINISTRATION TIME: 9:03 PATIENT DISCHARGED TO: Ambulatory patient, left [place] department area. A Diagnostic radioactive procedure has taken place, with no further precautions necessary other than routine body substance precautions. More information regarding radiation safety can be found usingthis link: [email or web address]%[email or web address] SIGNATURE: Tessa Young PATIENT NAME: Abbey Garcia DATE: October 04, 2019 TIME: 9:19 AM PAGER/CONTACT #: documented in this encounter Plan of Treatment Upcoming Encounters Date Type Department Care Team (Latest Contact Info) Description 09/18/2024 12:30 PM EDT [facility] Center Hematology/Oncology [address] [place] [address] [place] [address] [place] dressing and cap change;Labs as needed per patient 09/22/2024 12:30 PM EDT Office Visit Gastroenterology [address] [address] Economics Consultant, Hpn [address] [place] [address] HPN / PAGE [id number] 09/22/2024 1:00 PM EDT Office Visit Gastroenterology [address] [facility] [address] [address] HPN / PAGE [phone] 09/25/2024 9:00 AM EDT Infusion Center Hematology/Oncology [address] [place] [address] [place] [address] Hodges dressing and cap change;Labs as needed per patient 09/29/2024 10:15 AM EDT Appointment [facility] Endoscopy - ENDO [address] [place] [address] [place] [address] [place] [address] EGD 10/02/2024 9:00 AM EDT Infusion Center Hematology/Oncology [address] [place] [address] [place] [address] Hodges dressing and cap change;Labs as needed per patient 10/09/2024 9:00 AM EDT Infusion Center Hematology/Oncology [address] [place] [address] [place] [address] Hodges dressing and cap change;Labs as needed [...] documented as of this encounter Care Teams Ordering Box Operator Relationship Specialty Start Date End Date Marcos Moreno DO [address] [place] [address] [place] [address] PCP - General Drywall Stripper Helper 09/25/19 01/30/20 Shanna June CNP [address] [place] [address] PCP - General Family Medicine 01/31/20 01/18/22 Rachel Foley MD [address] [place] [address] PCP - General Family Medicine 01/19/22 06/15/22 Anna Mendez, NAIL STICKER.CAFE MANAGER [address] [place] [address] PCP - General 06/16/22 07/29/23 Thomas Alas MD [address] [place] [address] PCP - General Family Medicine 07/30/23 Antelmo Davey MD [address] [place] [address] 09/25/19 [place] [address] [place] [address] Consulting General Surgery 09/25/19 Shanna June CNP [address] [place] [address] Referring Family Medicine 10/19/19 Tj Najera PA [address] [address] Referring Family Medicine 05/13/22 Georgina Barkley MD [address] [place] [address] Home Parenteral Nutrition Provider Gastroenterology 10/14/23 documented as of this encounter
--- OUTSIDE RECORDS SUMMARY | 2024-09-15 16:39 | XMS_ITS | Encounter Summary ---
Author Organization [facility] Address [address] [place], [place] [id number] Care Team Providers Care Promotions Intern Name Role Phone TiffanieMarcos DO Primary Care Provider + [phone] Antelmo Davey MD Unavailable [phone] Deacon Valladares MD Unavailable [phone] Shanna June CNP Unavailable +[phone] Shanna June SUPERVISOR SANDING Primary Care Provider [phone] Rachel Foley MD Primary Care Provider [phone] Tj Najera Unavailable [phone] Anna Mendez APRN.SUPERVISOR SANDING Primary Care Provider Thomas Alas MD Primary Care Provider + Georgina Barkley MD Unavailable [phone] Source Comments In the event this information is protected by the Federal Confidentiality of Alcohol and Drug AbusePatient Records regulations: The Federal rules restrict any use of the information to criminally investigate or prosecute any alcohol or drug abuse patient.[facility] Encounter Details Date Type Department Care Team (Late st Contact Info) Description 09/30/2019 Get Medical Advice General Surgery [address] [place] [id number] Maricruz Thorne, WED[place]ING DECORATOR.VINYL FLOORING INSTALLER [address] [place] [address] RE: Upcoming Appointment Question Social History Tobacco [...] have Coronavirus / COVID-19? No / Unsure 10/02/2019 8:45 AM EDT documented as of this encounter Plan of Treatment Upcoming Encounters Date Type Department Care Team (Latest Contact Info) Description 09/18/2024 12:30 PM EDT Infusion Center Hematology/Oncology [address] [place] [address] [place] [address] Hodges dressing and cap change;Labs as needed per patient 09/22/2024 12:30 PM EDT Office Visit Gastroenterology 2048 [place] [address] Cloud Infrastructure Architect, Hpn [address] [place] [id number] HPN / PAGE [phone] 09/22/2024 1:00 PM EDT Office Visit Gastroenterology [address] [place] [id number] Georgina Barkley MD [facility] [address] [place], [place] [address] HPN / PAGE [phone] 09/25/2024 9:00 AM EDT Infusion Center Hematology/Oncology [address] [place] [address] [place] [address] Hodges dressing and cap change;Labs as needed per patient 09/29/2024 10:15 AM EDT Appointment [facility] Endoscopy - ENDO [address] [place] [address] [place] [address] [place] [address] EGD 10/02/2024 9:00 AM EDT Infusion Center Hematology/Oncology [address] [place] [address] [place] [address] Hodges dressing and cap change;Labs as needed per patient 10/09/2024 9:00 AM EDT Infusion Center Hematology/Oncology [address] [place] [address] [place] [address] Hodges dressing and cap change;Labs as needed [...] documented as of this encounter Care Teams Promotions Intern Relationship Specialty Start Date End Date Marcos Moreno DO [address] [place], [place] [address] [place] [place] [address] PCP - General Silverware Assembler 09/25/19 01/30/20 Shanna June CNP [address] [place] [address] PCP - General Family Medicine 01/31/20 01/18/22 Rachel Foley MD [address] [place] [address] PCP - General Family Medicine 01/19/22 06/15/22 Anna Mendez APRN.SUPERVISOR SANDING [address] [address] PCP - General 06/16/22 07/29/23 Thomas Alas MD [address] [place] [address] PCP - General Family Medicine 07/30/23 Antelmo Davey MD [address] [place] [address] 09/25/19 [place] [address] [place] [address] Consulting General Surgery 09/25/19 Shanna June, BETH [address] [place] [address] Referring Family Medicine 10/19/19 Tj Najera PA [address] [address] [place] [address] Referring Family Medicine 05/13/22 Georgina Barkley MD [address] [place] [address] Home Parenteral Nutrition Provider Gastroenterology 10/14/23 documented as of this encounter
--- OUTSIDE RECORDS SUMMARY | 2024-09-15 16:39 | XMS_ITS | Encounter Summary ---
Author Organization [facility] Address [address] [place] [address] Care Team Providers Care Power Shovel Mechanic Name Role Phone Antelmo Davey MD Unavailable Deacon Valladares MD Unavailable Shanna June CNP Unavailable [phone] Tj Najera Unavailable [phone] Thomas Alas MD Primary Care Provider [phone] Georgina Barkley MD Unavailable [phone] Source Comments In the event this information is protected by the Federal Confidentiality of Alcohol and Drug AbusePatient Records regulations: The Federal rules restrict any use of the information to criminally investigate or prosecute any alcohol or drug abuse patient.[facility] Encounter Details Date Type Department Care Team (Late st Contact Info) Description 11/08/2023 Patient Msg Neurology [address] [place] [address] Pablo Pradhan, PSYD [address] [place] [address] Appointment Request Social History Tobacco Use Types Packs/Day Years Used Date Smoking Tobacco: Never Smokeless Tobacco: Never Alcohol Use Standard Drinks/Week Comments Not Currently 0 (1 standard drink = 0.6 oz pur e alcohol) [facility] Utilities Answer Date Recorded In the past [...] often do you attend chur ch or sabianist services? 1 to 4 times per year 10/28/2022 Do you belong to any clubs o r organizations such as taoism groups, unions, fraternal or athletic groups, or [...] Answer Date Recorded PHQ-2 score 2 09/27/2023 [facility] [place] of Occupat ional Health - Occupational Stress [...] any time in the past [address] [facility], were you homeless or living in a residential (including now)? No 10/11/2023 Area Deprivation Index Answer Date Nayan rded National Score (1-100), lower number is lower ri sk 64 06/17/2022 State Score (1-10), lower number is lower risk 4 06/17/2022 Data from: https://www.neighborhoodatlas.medicine.[facility].edu/. Last address used for calculation [address] [place] [address] [address] 06/17/2022 Education Answer Date Recorded What is the highest level of school you have completed or the highest degree you have received? Master's degree (e.g., MA, MS, Birgit, MEd, LEAN CONSULTANT, IVANIA) 10/15/2019 Comments No Sex and [...] 12:30 PM EDT Infusion Center Hematology/Oncology [address] [place] [address] [place] [address] Hodges dressing and cap change;Labs as needed per patient 09/22/2024 12:30 PM EDT Office Visit Gastroenterology [address] [place] [phone] Commercial Lines Account Manager, Hpn [address] [place] [address] HPN / PAGE [phone] 09/22/2024 1:00 PM EDT Office Visit Gastroenterology [address] [place] [phone] Georgina Barkley MD [facility] [address] [place] [address] HPN / PAGE [phone] 09/25/2024 9:00 AM EDT Infusion Center Hematology/Oncology [address] [place] [address] [place] [address] Hodges dressing and cap change;Labs as needed per patient 09/29/2024 10:15 AM EDT Appointment [facility] Endoscopy - ENDO [address] [place] [address] [place] [address] [place] [address] EGD 10/02/2024 9:00 AM EDT Infusion Center Hematology/Oncology [address] [place] [address] [place] [address] Hodges dressing and cap change;Labs as needed per patient 10/09/2024 9:00 AM EDT Infusion Center Hematology/Oncology [address] [place] [address] [place] [address] Hodges dressing and cap change;Labs as needed per patient documented as of this encounter Visit Diagnoses Not on filedocumented in this encounter Care Teams Power Shovel Mechanic Relationship Specialty Start Date End Date Thomas Alas MD [address] [place] [address] PCP - General Family Medicine 07/30/23 Antelmo Davey MD [address] [place] [address] 09/25/19 [place] [address] [place] [address] Consulting General Surgery 09/25/19 Shanna June, CUSTOMER SUPPORT TECHNICIAN [address] [place] [address] Referring Family Medicine 10/19/19 Tj Najera PA [address] [place] [address] Referring Family Medicine 05/13/22 Georgina Barkley MD [address] [place] [address] Home Parenteral Nutrition Provider Gastroenterology 10/14/23 documented as of this encounter
--- OUTSIDE RECORDS SUMMARY | 2024-09-15 16:39 | XMS_ITS | Encounter Summary ---
Author Organization [facility] Address [address] [place], [place] [address] Care Team Providers Care Rip/Mould Operator Name Role Phone TiffanieMarcos DO Primary Care Provider + [phone] Antelmo Davey MD Unavailable [phone] Deacon Valladares MD Unavailable [phone] Shanna June CNP Unavailable +[phone] Shanna June WINDOW SHADE CLOTH SEWER Primary Care Provider [phone] Rachel Foley MD Primary Care Provider [phone] Tj Najera Unavailable [phone] Anna Mendez APRN.WINDOW SHADE CLOTH SEWER Primary Care Provider Thomas Alas MD Primary Care Provider + Georgina Barkley MD Unavailable [phone] Source Comments In the event this information is protected by the Federal Confidentiality of Alcohol and Drug AbusePatient Records regulations: The Federal rules restrict any use of the information to criminally investigate or prosecute any alcohol or drug abuse patient.[facility] Encounter Details Date Type Department Care Team (Late st Contact Info) Description 09/27/2019 Get Medical Advice General Surgery [address] [place] [phone] Maricruz Thorne, CLIENT EXPERIENCE MANAGER.VALVE GRINDER [address] [place] [address] RE: Upcoming Appointment Question Social History Tobacco [...] have Coronavirus / COVID-19? No / Unsure 09/29/2019 2:08 PM EDT documented as of this encounter Plan of Treatment Upcoming Encounters Date Type Department Care Team (Latest Contact Info) Description 09/18/2024 12:30 PM EDT Infusion Center Hematology/Oncology [address] [place] [address] [place] [address] Hodges dressing and cap change;Labs as needed per patient 09/22/2024 12:30 PM EDT Office Visit Gastroenterology 2048 [place] [address] Radio Engineering Teacher, Hpn [address] [place] [phone] HPN / PAGE [phone] 09/22/2024 1:00 PM EDT Office Visit Gastroenterology [address] [place] [phone] Georgina Barkley MD [facility] [address] [place], [place] [phone] HPN / PAGE [phone] 09/25/2024 9:00 AM EDT Infusion Center Hematology/Oncology [address] [place] [address] [place] [address] Hodges dressing and cap change;Labs as needed per patient 09/29/2024 10:15 AM EDT Appointment [facility] Endoscopy - ENDO [address] [place] [address] [place] [address] [place] [address] EGD 10/02/2024 9:00 AM EDT Infusion Center Hematology/Oncology [address] [place] [address] [place] [address] Hodges dressing and cap change;Labs as needed per patient 10/09/2024 9:00 AM EDT Infusion Center Hematology/Oncology [address] [place] [address] [place] [address] Hodges dressing and cap change;Labs as needed [...] documented as of this encounter Care Teams Rip/Mould Operator Relationship Specialty Start Date End Date Marcos Moreno DO [address] [place], [place] [address] [place] [address] PCP - General Town Administrator 09/25/19 01/30/20 Shanna June CNP [address] [place] [address] PCP - General Family Medicine 01/31/20 01/18/22 Rachel Foley MD [address] [place] [address] PCP - General Family Medicine 01/19/22 06/15/22 Anna Mendez APRN.WINDOW SHADE CLOTH SEWER [address] [address] PCP - General 06/16/22 07/29/23 Thomas Alas MD [address] [place] [address] PCP - General Family Medicine 07/30/23 Antelmo Davey MD [address] [place] [address] 09/25/19 [place] [address] [place] [address] Consulting General Surgery 09/25/19 Shanna June, BETH [address] [place] [address] Referring Family Medicine 10/19/19 Tj Najera PA [address] [address] [place] [address] Referring Family Medicine 05/13/22 Georgina Barkley MD [address] [place] [address] Home Parenteral Nutrition Provider Gastroenterology 10/14/23 documented as of this encounter
--- OUTSIDE RECORDS SUMMARY | 2024-09-15 16:39 | XMS_ITS | Encounter Summary ---
Author Organization [facility] Address [address] [place] [address] Care Team Providers Care Mobile Paint Specialist Name Role Phone Antelmo Davey MD Unavailable [phone] Deacon Valladares MD Unavailable [phone] Shanna June CNP Unavailable [phone] Tj Najera Unavailable [phone] Thomas Alas MD Primary Care Provider [phone] Georgina Barkley MD Unavailable [phone] Source Comments In the event this information is protected by the Federal Confidentiality of Alcohol and Drug AbusePatient Records regulations: The Federal rules restrict any use of the information to criminally investigate or prosecute any alcohol or drug abuse patient.[facility] Encounter Details Date Type Department Care Team (Late st Contact Info) Description 03/15/2024 Patient Msg General Surgery [address] [place] [address] Provider, Ccf appointment Social History Tobacco Use Types Packs/Day Years Used Date Smoking Tobacco: Never Smokeless Tobacco: Never Alcohol Use Standard Drinks/Week Comments Not Currently 0 (1 standard drink = 0.6 oz pur e alcohol) [facility] Utilities Answer Date Recorded In the past [...] often do you attend chur ch or church services? 1 to 4 times per year [...] Answer Date Recorded PHQ-2 score 3 01/14/2024 [facility] of Occupat ional Health - [...] place to sleep or slept in a prison (including now)? No 08/08/2023 Housing Stability Vital Sign Answer Eugenio e Recorded In the last 12 months, was t here a time when you were not able to pay the mortgage or rent on time? No 12/02/2023 Number of Times Moved in the Last Year Not on fi le 12/02/2023 At any time in the past 12 m [facility], were you homeless or living in a prison (including now)? No 12/02/2023 Area Deprivation Index Answer Date Nayan rded National Score (1-100), lower number is lower ri sk 64 06/17/2022 State Score (1-10), lower number is lower risk 4 06/17/2022 Data from: https://www.neighborhoodatlas.medicine.[facility].edu/. Last address used for calculation [id number] [place] [address] [address] 06/17/2022 Education Answer Date Recorded What is the highest level of school you have completed or the highest degree you have received? Master's degree (e.g., MA, MS, Birgit, MEd, MARKET RESEARCH ASSISTANT, IVANIA) 10/15/2019 Comments No Sex and Gender [...] 09/18/2024 12:30 PM EDT Infusion Center Hematology/Oncology [address] [place] [address] [place] [address] Hodges dressing and cap change;Labs as needed per patient 09/22/2024 12:30 PM EDT Office Visit Gastroenterology [address] [phone] Grupo Hwang [address] [place] [address] GRUPO / PAGE [id number] 09/22/2024 1:00 PM EDT Office Visit Gastroenterology [address] [id number] Georgina Barkley MD [place] [id number] HPN / PAGE [id number] 09/25/2024 9:00 AM EDT Infusion Center Hematology/Oncology [address] [place] [address] [place] [address] Hodges dressing and cap change;Labs as needed per patient 09/29/2024 10:15 AM EDT Appointment [facility] Endoscopy - ENDO [address] [place] [address] [place] [address] [place] [address] EGD 10/02/2024 9:00 AM EDT Infusion Center Hematology/Oncology [address] [place] [address] [place] [address] Hodges dressing and cap change;Labs as needed per patient 10/09/2024 9:00 AM EDT Infusion Center Hematology/Oncology [address] [place] [address] [place] [address] Hodges dressing and cap change;Labs as needed per patient documented as of this encounter Goals Goal Patient Goal Type Associated Problems Recent Progress Patient-Stated? Author Blood Pressure < 140/90 Blood Pressure 112/76( 025 8:48 AM EDT) No Hannah Devlin MD documented as of this encounter Visit Diagnoses Not on filedocumented in this encounter Care Teams Mobile Paint Specialist Relationship Specialty Start Date End Date Thomas Alas MD [address] [place] [address] PCP - General Family Medicine 07/30/23 Antelmo Davey MD [address] [place] [address] 09/25/19 [place] [address] [place] [address] Consulting General Surgery 09/25/19 Shanna June CNP [address] [place] [address] Referring Family Medicine 10/19/19 Tj Najera PA [address] [address] Referring Family Medicine 05/13/22 Georgina Barkley MD [address] [place] [address] Home Parenteral Nutrition Provider Gastroenterology 10/14/23 documented as of this encounter
--- OUTSIDE RECORDS SUMMARY | 2024-09-15 16:39 | XMS_ITS | Encounter Summary ---
Author Organization [facility] Address [address] [place] [address] Care Team Providers Care Evaporator Helper Name Role Phone Antelmo Davey MD Unavailable Deacon Valladares MD Unavailable Shanna June CNP Unavailable [phone] Tj Najera Unavailable [phone] Thomas Alas MD Primary Care Provider [phone] Georgina Barkley MD Unavailable [phone] Source Comments In the event this information is protected by the Federal Confidentiality of Alcohol and Drug AbusePatient Records regulations: The Federal rules restrict any use of the information to criminally investigate or prosecute any alcohol or drug abuse patient.[facility] Encounter Details Date Type Department Care Team (Late st Contact Info) Description 11/30/2023 Patient Msg Gastroenterology [address] [address] Kasie Avalos MD [address]00 [place] [address] Follow up Social History Tobacco Use Types Packs/Day Years Used Date Smoking Tobacco: Never Smokeless Tobacco: Never Alcohol Use Standard Drinks/Week Comments Not Currently 0 (1 standard drink = 0.6 oz pur e alcohol) [facility] Utilities Answer Date Recorded In the [...] often do you attend chur ch or protestant services? 1 to 4 times per year 10/28/2022 Do you belong to any clubs o r organizations such as shinto groups, unions, fraternal or athletic groups, or [...] PHQ-2 Answer Date Recorded PHQ-2 score 2 11/29/2023 [facility] of Occupat ional Health - Occupational Stress [...] place to sleep or slept in a assisted (including now)? No 08/08/2023 Housing Stability Vital Sign Answer Eugenio e Recorded In the last 12 months, was t here a time when you were not able to pay the mortgage or rent on time? No 12/02/2023 Number of Times Moved in the Last Year Not on fi le 12/02/2023 At any time in the past 12 m [facility], were you homeless or living in a assisted (including now)? No 12/02/2023 Area Deprivation Index Answer Date Nayan rded National Score (1-100), lower number is lower ri sk 64 06/17/2022 State Score (1-10), lower number is lower risk 4 06/17/2022 Data from: https://www.neighborhoodatlas.medicine.[facility].edu/. Last address used for calculation [id number] [place] [address] [address] 06/17/2022 Education Answer Date Recorded What is the highest level of school you have completed or the highest degree you have received? Master's degree (e.g., MA, MS, Birgit, MEd, CLAY PIGEON LOADER, IVANIA) 10/15/2019 Comments No Sex and Gender [...] 09/18/2024 12:30 PM EDT Infusion Center Hematology/Oncology [address] [place] [address] [place] [address] Carroll dressing and cap change;Labs as needed per patient 09/22/2024 12:30 PM EDT Office Visit Gastroenterology [address] [address] Cvt Rn, Rodneyn [address] [place] [address] HPN / PAGE [id number] 09/22/2024 1:00 PM EDT Office Visit Gastroenterology [address] [id number] Georgina Barkley MD [facility] [address] [id number] HPN / PAGE [id number] 09/25/2024 9:00 AM EDT Infusion Center Hematology/Oncology [address] [place] [address] [place] [address] Hodges dressing and cap change;Labs as needed per patient 09/29/2024 10:15 AM EDT Appointment [facility] Endoscopy - ENDO [address] [place] [address] [place] [address] [place] [address] EGD 10/02/2024 9:00 AM EDT Infusion Center Hematology/Oncology [address] [place] [address] [place] [address] Hodges dressing and cap change;Labs as needed per patient 10/09/2024 9:00 AM EDT Infusion Center Hematology/Oncology [address] [place] [address] [place] [address] Hodges dressing and cap change;Labs as needed per patient documented as of this encounter Visit Diagnoses Not on filedocumented in this encounter Care Teams Evaporator Helper Relationship Specialty Start Date End Date Thmoas Alas MD [address] [place] [address] PCP - General Family Medicine 07/30/23 Atnelmo Davey MD [address] [place] [address] 09/25/19 [place] [address] [place] [address] Consulting General Surgery 09/25/19 Shanna June, BETH [address] [place] [address] Referring Family Medicine 10/19/19 Tj Najera PA [address] [facility] [place] [address] Referring Family Medicine 05/13/22 Georgina Barkley MD [address] [place] [address] Home Parenteral Nutrition Provider Gastroenterology 10/14/23 documented as of this encounter
--- OUTSIDE RECORDS SUMMARY | 2024-09-15 16:39 | XMS_ITS | Encounter Summary ---
Author Organization [facility] Address [address] [place] [address] Care Team Providers Care Monitor Car Operator Name Role Phone Antelmo Davey MD Unavailable Deacon Valladares MD Unavailable [phone] Shanna June CNP Unavailable [phone] Tj Najera Unavailable [phone] Thomas Alas MD Primary Care Provider [phone] Georgina Barkley MD Unavailable [phone] Source Comments In the event this information is protected by the Federal Confidentiality of Alcohol and Drug AbusePatient Records regulations: The Federal rules restrict any use of the information to criminally investigate or prosecute any alcohol or drug abuse patient.[facility] Encounter Details Date Type Department Care Team (Late st Contact Info) Description 03/13/2024 Patient Msg Gastroenterology [address] [address] Kasie Avalos MD 9500 [place] [address] test results Social History Tobacco Use Types Packs/Day Years Used Date Smoking Tobacco: Never Smokeless Tobacco: Never Alcohol Use Standard Drinks/Week Comments Not Currently 0 (1 standard drink = 0.6 oz pur e alcohol) [facility] Utilities Answer Date Recorded In the past [...] often do you attend chur ch or latter day services? 1 to 4 times per year 10/28/2022 Do you belong to any clubs o r organizations such as zoroastrian groups, unions, fraternal or athletic groups, or [...] Answer Date Recorded PHQ-2 score 3 01/14/2024 [facility] of Occupat ional Health - Occupational Stress [...] time in the past [address] [facility], were you homeless or living in a [place] health care facility (including now)? No 12/02/2023 Area Deprivation Index Answer Date Nayan rded National Score (1-100), lower number is lower ri sk 64 06/17/2022 State Score (1-10), lower number is lower risk 4 06/17/2022 Data from: https://www.neighborhoodatlas.medicine.[facility].edu/. Last address used for calculation [id number] [place] [address] RD [address] 06/17/2022 Education Answer Date Recorded What is the highest level of school you have completed or the highest degree you have received? Master's degree (e.g., MA, MS, Birgit, MEd, COUNTER MAKER, IVANIA) 10/15/2019 Comments No Sex and [...] Author No 12/03/2023 1:48 PM EDT Georgina Burgso RN * Are you blind or do [...] 09/18/2024 12:30 PM EDT Infusion Center Hematology/Oncology [address] [place] [address] [place] [address] Hodges dressing and cap change;Labs as needed per patient 09/22/2024 12:30 PM EDT Office Visit Gastroenterology [address] [address] Medical Office Worker, Hpn [address] [place] [address] HPN / PAGE [id number] 09/22/2024 1:00 PM EDT Office Visit Gastroenterology [address] [address] Georgina Barkley MD [facility] [address] [address] HPN / PAGE [id number] 09/25/2024 9:00 AM EDT Infusion Center Hematology/Oncology [address] [place] [address] [place] [address] Hodges dressing and cap change;Labs as needed per patient 09/29/2024 10:15 AM EDT Appointment [facility] Endoscopy - ENDO [address] [id number] [place] [address] [address] [id number] EGD 10/02/2024 9:00 AM EDT Infusion Center Hematology/Oncology [address] [place] [address] [place] [address] Hodges dressing and cap change;Labs as needed per patient 10/09/2024 9:00 AM EDT Infusion Center Hematology/Oncology [address] [place] [address] [place] [address] Hodges dressing and cap change;Labs as needed per patient documented as of this encounter Goals Goal Patient Goal Type Associated Problems Recent Progress Patient-Stated? Author Blood Pressure < 140/90 Blood Pressure 112/76( 025 8:48 AM EDT) No Hannah Devlin MD documented as of this encounter Visit Diagnoses Not on filedocumented in this encounter Care Teams Monitor Car Operator Relationship Specialty Start Date End Date Thomas Alas MD [address] [place] [address] PCP - General Family Medicine 07/30/23 Antelmo Davey MD [address] [place] [address] 09/25/19 [place] [address] [place] [address] Consulting General Surgery 09/25/19 Shanna June CNP [address] [place] [address] Referring Family Medicine 10/19/19 Tj Najera PA [address] [address] Referring Family Medicine 05/13/22 Georgina Barkley MD [address] [place] [address] Home Parenteral Nutrition Provider Gastroenterology 10/14/23 documented as of this encounter
--- OUTSIDE RECORDS SUMMARY | 2024-09-15 16:39 | XMS_ITS | Encounter Summary ---
Author Organization [facility] Address [address] [place] [address] Care Team Providers Care Rubber Flap Tuber Machine Operator Name Role Phone Antelmo Davey MD Unavailable [phone] Deacon Valladares MD Unavailable [phone] Shanna June CNP Unavailable [phone] Tj Najera Unavailable [phone] Thomas Alas MD Primary Care Provider [phone] Georgina Barkley MD Unavailable [phone] Source Comments In the event this information is protected by the Federal Confidentiality of Alcohol and Drug AbusePatient Records regulations: The Federal rules restrict any use of the information to criminally investigate or prosecute any alcohol or drug abuse patient.[facility] Encounter Details Date Type Department Care Team (Late st Contact Info) Description 02/29/2024 Patient Msg Neurology [address] [place] [address] Pablo Pradhan, PSYD [address] [place] [address] Appointment Request Social History Tobacco Use Types Packs/Day Years Used Date Smoking Tobacco: Never Smokeless Tobacco: Never Alcohol Use Standard Drinks/Week Comments Not Currently 0 (1 standard drink = 0.6 oz pur e alcohol) [facility] Utilities Answer Date Recorded In [...] often do you attend chur ch or advent services? 1 to 4 times per year 10/28/2022 Do you belong to any clubs o r organizations such as latter-day groups, unions, fraternal or athletic groups, or [...] Answer Date Recorded PHQ-2 score 3 01/14/2024 [facility] of Occupat ional Health - Occupational Stress [...] in a group home (including now)? No 08/08/2023 Housing Stability Vital Sign Answer Eugenio e Recorded In the last 12 months, was t here a time when you were not able to pay the mortgage or rent on time? No 12/02/2023 Number of Times Moved in the Last Year Not on fi le 12/02/2023 At any time in the past 12 m [facility], were you homeless or living in a group home (including now)? No 12/02/2023 Area Deprivation Index Answer Date Nayan rded National Score (1-100), lower number is lower ri sk 64 06/17/2022 State Score (1-10), lower number is lower risk 4 06/17/2022 Data from: https://www.neighborhoodatlas.medicine.[facility].edu/. Last address used for calculation [id number] 06/17/2022 Education Answer Date Recorded What is the highest level of school you have completed or the highest degree you have received? Master's degree (e.g., MA, MS, Birgit, MEd, INDEPENDENT TRADER, IVANIA) 10/15/2019 Comments No Sex and Gender [...] 09/18/2024 12:30 PM EDT Infusion Center Hematology/Oncology [address] [place] [address] [place] [address] Hodges dressing and cap change;Labs as needed per patient 09/22/2024 12:30 PM EDT Office Visit Gastroenterology [address] [address] Copy Preparer, Grupo [address] [place] [address] GRUPO / PAGE [id number] 09/22/2024 1:00 PM EDT Office Visit Gastroenterology [address] [id number] Georgina Barkley MD [facility] [address] [id number] HPN / PAGE [id number] 09/25/2024 9:00 AM EDT Infusion Center Hematology/Oncology [address] [place] [address] [place] [address] Hodges dressing and cap change;Labs as needed per patient 09/29/2024 10:15 AM EDT Appointment [facility] Endoscopy - ENDO [address] [place] [address] [place] [address] [place] [address] EGD 10/02/2024 9:00 AM EDT Infusion Center Hematology/Oncology [address] [place] [address] [place] [address] Hodges dressing and cap change;Labs as needed per patient 10/09/2024 9:00 AM EDT Infusion Center Hematology/Oncology [address] [place] [address] [place] [address] Ohdges dressing and cap change;Labs as needed per patient documented as of this encounter Goals Goal Patient Goal Type Associated Problems Recent Progress Patient-Stated? Author Blood Pressure < 140/90 Blood Pressure 112/76( 025 8:48 AM EDT) No Hannah Devlin MD documented as of this encounter Visit Diagnoses Not on filedocumented in this encounter Care Teams Rubber Flap Tuber Machine Operator Relationship Specialty Start Date End Date Thomas Alas MD [address] [place] [address] PCP - General Family Medicine 07/30/23 Antelmo Davey MD [address] [place] [address] 09/25/19 [place] [address] [place] [address] Consulting General Surgery 09/25/19 Shanna June, BETH [address] [place] [address] Referring Family Medicine 10/19/19 Tj Najera PA [address] [address] Referring Family Medicine 05/13/22 Georgina Barkley MD [address] [place] [address] Home Parenteral Nutrition Provider Gastroenterology 10/14/23 documented as of this encounter
--- OUTSIDE RECORDS SUMMARY | 2024-09-15 16:39 | XMS_ITS | Encounter Summary ---
Author Organization [facility] Address [address] [place] [address] Care Team Providers Care Manufacturing Test Engineer Name Role Phone Antelmo Davey MD Unavailable Deacon Valladares MD Unavailable Shanna June CNP Unavailable [phone] Tj Najera Unavailable [phone] Thomas Alas MD Primary Care Provider [phone] Georgina Barkley MD Unavailable [phone] Source Comments In the event this information is protected by the Federal Confidentiality of Alcohol and Drug AbusePatient Records regulations: The Federal rules restrict any use of the information to criminally investigate or prosecute any alcohol or drug abuse patient.[facility] Encounter Details Date Type Department Care Team (Late st Contact Info) Description 11/09/2023 Patient Msg Colorectal Surgery [address] [place] [address] Provider, Ccf Your appointment with Andie Mejias CNP on 12/21/23 has been cancelled and will need rescheduled Social History Tobacco Use Types Packs/Day Years Used Date Smoking Tobacco: Never Smokeless Tobacco: Never Alcohol Use Standard Drinks/Week Comments Not Currently 0 (1 standard drink = 0.6 oz pur e alcohol) [facility] Utilities Answer Date Recorded [...] any clubs o r organizations such as spiritism groups, unions, fraternal or athletic groups, or [...] Answer Date Recorded PHQ-2 score 2 09/27/2023 [facility] [place] of Occupat ional Health - Occupational Stress [...] place to sleep or slept in a retirement (including now)? No 08/08/2023 Housing Stability Vital Sign Answer Eugenio e Recorded In the last 12 months, was t here a time when you were not able to pay the mortgage or rent on time? No 10/11/2023 Number of Times Moved in the Last Year Not on fi le 10/11/2023 At any time in the past 12 m [facility], were you homeless or living in a retirement (including now)? No 10/11/2023 Area Deprivation Index Answer Date Nayan rded National Score (1-100), lower number is lower ri sk 64 06/17/2022 State Score (1-10), lower number is lower risk 4 06/17/2022 Data from: https://www.neighborhoodatlas.medicine.[facility].edu/. Last address used for calculation [id number] 06/17/2022 Education Answer Date Recorded What is the highest level of school you have completed or the highest degree you have received? Master's degree (e.g., MA, MS, Birgit, MEd, PLANIMETER OPERATOR, IVANIA) 10/15/2019 Comments No Sex and [...] Author No 10/12/2023 12:17 PM EDT Loretta eCron RN documented in this encounter Plan of Treatment Upcoming Encounters Date Type Department Care Team (Latest Contact Info) Description 09/18/2024 12:30 PM EDT Infusion Center Hematology/Oncology [address] [place] [address] [place] [address] Hodges dressing and cap change;Labs as needed per patient 09/22/2024 12:30 PM EDT Office Visit Gastroenterology [address] [phone] Artificial Breast Fabricator, Hpn [address] [place] [address] HPN / PAGE [id number] 09/22/2024 1:00 PM EDT Office Visit Gastroenterology [address] [phone] Georgina Barkley MD [facility] [address] [phone] HPN / PAGE [id number] 09/25/2024 9:00 AM EDT Infusion Center Hematology/Oncology [address] [place] [address] [place] [address] Hodges dressing and cap change;Labs as needed per patient 09/29/2024 10:15 AM EDT Appointment [facility] Endoscopy - ENDO [address] [place] [address] [place] [address] [place] [address] EGD 10/02/2024 9:00 AM EDT Infusion Center Hematology/Oncology [address] [place] [address] [place] [address] Hodges dressing and cap change;Labs as needed per patient 10/09/2024 9:00 AM EDT Infusion Center Hematology/Oncology [address] [place] [address] [place] [address] Hodges dressing and cap change;Labs as needed per patient documented as of this encounter Visit Diagnoses Not on filedocumented in this encounter Care Teams Manufacturing Test Engineer Relationship Specialty Start Date End Date Thomas Alas MD [address] [place] [address] PCP - General Family Medicine 07/30/23 Antelmo Davey MD [address] [place] [address] 09/25/19 [place] [address] [place] [address] Consulting General Surgery 09/25/19 Shanna June CNP [address] [place] [address] Referring Family Medicine 10/19/19 Tj Najera PA [address] [place] [address] Referring Family Medicine 05/13/22 Georgina Barkley MD [address] [place] [address] Home Parenteral Nutrition Provider Gastroenterology 10/14/23 documented as of this encounter
--- OUTSIDE RECORDS SUMMARY | 2024-09-15 16:39 | XMS_ITS | Encounter Summary ---
Author Organization [facility] Address [address] [place] [address] Care Team Providers Care Retail Warehouse Associate Name Role Phone Antelmo Davey MD Unavailable [phone] Deacon Valladares MD Unavailable Shanna June CNP Unavailable [phone] Tj Najera Unavailable [phone] Thomas Alas MD Primary Care Provider [phone] Georgina Barkley MD Unavailable [phone] Source Comments In the event this information is protected by the Federal Confidentiality of Alcohol and Drug AbusePatient Records regulations: The Federal rules restrict any use of the information to criminally investigate or prosecute any alcohol or drug abuse patient.[facility] Encounter Details Date Type Department Care Team (Late st Contact Info) Description 11/08/2023 Get Medical Advice General Surgery [address] [place], [place] [id number] [place] [address] [place], [place] [phone] Reschedule Appointment Social History Tobacco Use Types Packs/Day Years Used Date Smoking Tobacco: Never Smokeless Tobacco: Never Alcohol Use Standard Drinks/Week Comments Not Currently 0 (1 standard drink = 0.6 oz pur e alcohol) [facility] Utilities Answer Date Recorded In [...] Answer Date Recorded PHQ-2 score 2 09/27/2023 [facility] [place] [facility] Occupat ional Health - Occupational Stress [...] to sleep or slept in a senior living (including now)? No 08/08/2023 Housing Stability Vital Sign Answer Eugenio e Recorded In the last 12 months, was t here a time when you were not able to pay the mortgage or rent on time? No 10/11/2023 Number of Times Moved in the Last Year Not on fi le 10/11/2023 At any time in the past 12 m [facility], were you homeless or living in a senior living (including now)? No 10/11/2023 Area Deprivation Index Answer Date Nayan rded National Score (1-100), lower number is lower ri sk 64 06/17/2022 State Score (1-10), lower number is lower risk 4 06/17/2022 Data from: https://www.neighborhoodatlas.medicine.[facility].edu/. Last address used for calculation [address] [place] [address] RD [address] 06/17/2022 Education Answer Date Recorded What is the highest level of school you have completed or the highest degree you have received? Master's degree (e.g., MA, MS, Birgit, MEd, RN TELE, IVANIA) 10/15/2019 Comments No Sex and Gender [...] 12:30 PM EDT Infusion Center Hematology/Oncology [address] [place] [address] [place] [address] Carroll dressing and cap change;Labs as needed per patient 09/22/2024 12:30 PM EDT Office Visit Gastroenterology [address] [address] Safety Consultant, Rodneyn [address] [place] [address] HPN / PAGE [id number] 09/22/2024 1:00 PM EDT Office Visit Gastroenterology [address] [place] [id number] Georgina Barkley MD [facility] [address] [place] [address] [id number] HPN / PAGE [id number] 09/25/2024 9:00 AM EDT Infusion Center Hematology/Oncology [address] [place] [address] [place] [address] Hodges dressing and cap change;Labs as needed per patient 09/29/2024 10:15 AM EDT Appointment [facility] Endoscopy - ENDO [address] [place] [phone] [place] [address] [place] [address] EGD 10/02/2024 9:00 AM EDT Infusion Center Hematology/Oncology [address] [place] [address] [place] [address] Hodges dressing and cap change;Labs as needed per patient 10/09/2024 9:00 AM EDT Infusion Center Hematology/Oncology [address] [place] [address] [place] [address] Hodges dressing and cap change;Labs as needed per patient documented as of this encounter Visit Diagnoses Not on filedocumented in this encounter Care Teams Retail Warehouse Associate Relationship Specialty Start Date End Date Thomas Alas MD [address] [place] [address] PCP - General Family Medicine 07/30/23 Antelmo Davey MD [address] [place] [address] 09/25/19 [place] [address] [place] [address] Consulting General Surgery 09/25/19 Shanna June CNP [address] [place] [address] Referring Family Medicine 10/19/19 Tj Najera PA 112 [facility] 150 [place] [address] Referring Family Medicine 05/13/22 Georgina Barkley MD [address] [place] [address] Home Parenteral Nutrition Provider Gastroenterology 10/14/23 documented as of this encounter
--- OUTSIDE RECORDS SUMMARY | 2024-09-15 16:39 | XMS_ITS | Encounter Summary ---
Author Organization [facility] Address [address] [place] [address] Care Team Providers Care Data Lead Name Role Phone Antelmo Davey MD Unavailable Deacon Valladares MD Unavailable [phone] Shanna June [facility] Unavailable [phone] Tj Najera Unavailable [phone] Anna Mendez APRN.[facility] Primary Care Provider Thomas Alas MD Primary Care Provider [phone] Georgina Barkley MD Unavailable [phone] Source Comments In the event this information is protected by the Federal Confidentiality of Alcohol and Drug AbusePatient Records regulations: The Federal rules restrict any use of the information to criminally investigate or prosecute any alcohol or drug abuse patient.[facility] Encounter Details Date Type Department Care Team (Late st Contact Info) Description 06/16/2022 Get Medical Advice [facility] [address] [place] [id number] Aliyah [place] PA-C [address] [place] [address]. [place] [address] Kidney Pain Social History Tobacco Use Types Packs/Day Years [...] slept in a assisted (including now)? No 06/20/2022 Area Deprivation Index Answer Date Nayan rded National Score (1-100), lower number is lower ri sk 64 06/17/2022 State Score (1-10), lower number is lower risk 4 06/17/2022 Data from: https://www.neighborhoodatlas.medicine.[facility].edu/. Last address used for calculation [address] [address] 06/17/2022 Education Answer Date Recorded What is the highest level of school you have completed or the highest degree you have received? Master's degree (e.g., MA, MS, Birgit, MEd, COUNTRY DIRECTOR, IVANIA) 10/15/2019 Comments No Sex and [...] 12:30 PM EDT Infusion Center Hematology/Oncology [address] [place] [address] [place] [address] Hodges dressing and cap change;Labs as needed per patient 09/22/2024 12:30 PM EDT Office Visit Gastroenterology [address] [address] Military Cook, Hpn [address] [place] [address] HPN / PAGE [id number] 09/22/2024 1:00 PM EDT Office Visit Gastroenterology [address] [place] [phone] Georgina Barkley MD [facility] [address] [address] HPN / PAGE [id number] 09/25/2024 9:00 AM EDT Infusion Center Hematology/Oncology [address] [place] [address] [place] [address] Hodges dressing and cap change;Labs as needed per patient 09/29/2024 10:15 AM EDT Appointment [facility] Endoscopy - ENDO [address] [place] [address] [place] [address] [place], [place] [phone] EGD 10/02/2024 9:00 AM EDT Infusion Center Hematology/Oncology [address] [place] [address] [place] [address] Hodges dressing and cap change;Labs as needed per patient 10/09/2024 9:00 AM EDT Infusion Center Hematology/Oncology [address] [place] [address] [place] [address] Hodges dressing and cap change;Labs as needed per patient documented as of this encounter Visit Diagnoses Not on filedocumented in this encounter Additional Health Concerns Infection Onset Date Last Indicated Resolved Time COVID-19 Rule-Out 06/06/2023 06/06/2023 06/06/2023 6:19 PM EDT documented as of this encounter Care Teams Data Lead Relationship Specialty Start Date End Date Anna Mendez, CCO.RUG MEASURER 112 [facility] 150 [place] [address] PCP - General 06/16/22 07/29/23 Thomas Alas MD [address] [facility] [place] [address] PCP - General Family Medicine 07/30/23 Antelmo Davey MD [address] [place] [address] 09/25/19 [place] [address] [place] [address] Consulting General Surgery 09/25/19 Shanna June CNP [address] [place] [address] Referring Family Medicine 10/19/19 Tj Najera PA [address] [address] Referring Family Medicine 05/13/22 Georgina Barkley MD [address] [place] [address] Home Parenteral Nutrition Provider Gastroenterology 10/14/23 documented as of this encounter
--- OUTSIDE RECORDS SUMMARY | 2024-09-15 16:39 | XMS_ITS | Encounter Summary ---
Author Organization [facility] Address [address] [place] [address] Care Team Providers Care Terrazzo Mechanic Name Role Phone Antelmo Davey MD Unavailable [phone] Deacon Valladares MD Unavailable Shanna June [facility] Unavailable [phone] Tj Najera Unavailable [phone] nAna Mendez APRN.[facility] Primary Care Provider Thomas Alas MD Primary Care Provider [phone] Georgina Barkley MD Unavailable [phone] Source Comments In the event this information is protected by the Federal Confidentiality of Alcohol and Drug AbusePatient Records regulations: The Federal rules restrict any use of the information to criminally investigate or prosecute any alcohol or drug abuse patient.[facility] Encounter Details Date Type Department Care Team (Late st Contact Info) Description 06/17/2022 Get Medical Advice Gastroenterology [address] [place] [phone] Kasie Avalos MD [address] [place] [address] Appointment and Symptoms Social History Tobacco Use Types Packs/Day [...] in a senior care (including now)? No 06/20/2022 Area Deprivation Index Answer Date Nayan rded National Score (1-100), lower number is lower ri sk 64 06/17/2022 State Score (1-10), lower number is lower risk 4 06/17/2022 Data from: https://www.neighborhoodatlas.medicine.[facility].edu/. Last address used for calculation [address] 06/17/2022 Education Answer Date Recorded What is the highest level of school you have completed or the highest degree you have received? Master's degree (e.g., PADMA, MS, Birgit, MEd, HYDRO PNEUMATIC TESTER, IVANIA) 10/15/2019 Comments No Sex and [...] 12:30 PM EDT Infusion Center Hematology/Oncology [address] [place] [address] [place] [address] Hodges dressing and cap change;Labs as needed per patient 09/22/2024 12:30 PM EDT Office Visit Gastroenterology [address] [address] Guest Services Officer, Hpn [address] [place] [address] HPN / PAGE [id number] 09/22/2024 1:00 PM EDT Office Visit Gastroenterology [address] [place] [phone] Georgina Barkley MD [facility] [address] [address] HPN / PAGE [id number] 09/25/2024 9:00 AM EDT Infusion Center Hematology/Oncology [address] [place] [address] [place] [address] Hodges dressing and cap change;Labs as needed per patient 09/29/2024 10:15 AM EDT Appointment [facility] Endoscopy - ENDO [address] [place] [address] [place] [address] [address] [id number] EGD 10/02/2024 9:00 AM EDT Infusion Center Hematology/Oncology [address] [place] [address] [place] [address] Hodges dressing and cap change;Labs as needed per patient 10/09/2024 9:00 AM EDT Infusion Center Hematology/Oncology [address] [place] [address] [place] [address] Hodges dressing and cap change;Labs as needed per patient documented as of this encounter Visit Diagnoses Not on filedocumented in this encounter Additional Health Concerns Infection Onset Date Last Indicated Resolved Time COVID-19 Rule-Out 06/06/2023 06/06/2023 06/06/2023 6:19 PM EDT documented as of this encounter Care Teams Terrazzo Mechanic Relationship Specialty Start Date End Date Anna Mendez APRN.MOSQUITO SPRAYER 112 [facility] 150 [place] [address] PCP - General 06/16/22 07/29/23 Thomas Alas MD [address] [facility] [place] [address] PCP - General Family Medicine 07/30/23 Antelmo Davey MD [address] [place] [address] 09/25/19 [place] [address] [place] [address] Consulting General Surgery 09/25/19 Shanna June CNP [address] [place] [address] Referring Family Medicine 10/19/19 Tj Najera PA [address] [address] Referring Family Medicine 05/13/22 Georgina Barkley MD [address] [place] [address] Home Parenteral Nutrition Provider Gastroenterology 10/14/23 documented as of this encounter
--- OUTSIDE RECORDS SUMMARY | 2024-09-15 16:39 | XMS_ITS | Encounter Summary ---
Author Organization [facility] Address [address] [place] [address] Care Team Providers Care Apprentice Electrician Name Role Phone Antelmo Davey MD Unavailable Deacon Valladares MD Unavailable [phone] Shanna June CNP Unavailable [phone] Tj Najera Unavailable [phone] Thomas Alas MD Primary Care Provider [phone] Georgina Barkley MD Unavailable [phone] Source Comments In the event this information is protected by the Federal Confidentiality of Alcohol and Drug AbusePatient Records regulations: The Federal rules restrict any use of the information to criminally investigate or prosecute any alcohol or drug abuse patient.[facility] Encounter Details Date Type Department Care Team (Late st Contact Info) Description 11/16/2023 Patient Msg Neurology 9500 [place] [address] Provider, Ccf appointment update Social History Tobacco Use Types Packs/Day Years Used Date Smoking Tobacco: Never Smokeless Tobacco: Never Alcohol Use Standard Drinks/Week Comments Not Currently 0 (1 standard drink = 0.6 oz pur e alcohol) [facility] Utilities Answer Date Recorded In [...] often do you attend chur ch or jewish services? 1 to 4 times per year 10/28/2022 Do you belong to any clubs o r organizations such as hoahaoism groups, unions, fraternal or athletic groups, or [...] PHQ-2 Answer Date Recorded PHQ-2 score 2 11/15/2023 [facility] of Occupat ional Health - [...] any time in the past 12 m [facility], were you homeless or living in a assisted (including now)? No 10/11/2023 Area Deprivation Index Answer Date Nayan rded National Score (1-100), lower number is lower ri sk 64 06/17/2022 State Score (1-10), lower number is lower risk 4 06/17/2022 Data from: https://www.neighborhoodatlas.medicine.[facility].edu/. Last address used for calculation [id number] [place] [address] [address] 06/17/2022 Education Answer Date Recorded What is the highest level of school you have completed or the highest degree you have received? Master's degree (e.g., MA, MS, Birgit, MEd, FLOUR WORKER, IVANIA) 10/15/2019 Comments No Sex and [...] [facility] Center Hematology/Oncology [address] [place] [address] [place] [address] Hodges dressing and cap change;Labs as needed per patient 09/22/2024 12:30 PM EDT Office Visit Gastroenterology [address] [address] Buckle And Button Maker, Grupo [address] [place] [address] HPN / PAGE [id number] 09/22/2024 1:00 PM EDT Office Visit Gastroenterology [address] [address] Georgina Barkley MD [facility] [address] [place], [place] [address] HPN / PAGE [id number] 09/25/2024 9:00 AM EDT Infusion Center Hematology/Oncology [address] [place] [address] [place] [address] Hodges dressing and cap change;Labs as needed per patient 09/29/2024 10:15 AM EDT Appointment [facility] Endoscopy - ENDO [address] [place] [address] [place] [address] [place] [address] EGD 10/02/2024 9:00 AM EDT Infusion Center Hematology/Oncology [address] [place] [address] [place] [address] Hodges dressing and cap change;Labs as needed per patient 10/09/2024 9:00 AM EDT Infusion Center Hematology/Oncology [address] [place] [address] [place] [address] Hodges dressing and cap change;Labs as needed per patient documented as of this encounter Visit Diagnoses Not on filedocumented in this encounter Care Teams Apprentice Electrician Relationship Specialty Start Date End Date Thomas Alas MD [address] [place] [address] PCP - General Family Medicine 07/30/23 Antelmo Davey MD [address] [place] [address] 09/25/19 [place] [address] [place] [address] Consulting General Surgery 09/25/19 Shanna June CNP [address] [place] [address] Referring Family Medicine 10/19/19 Tj Najera PA [address] [address] Referring Family Medicine 05/13/22 Georgina Barkley MD [address] [place] [address] Home Parenteral Nutrition Provider Gastroenterology 10/14/23 documented as of this encounter
--- OUTSIDE RECORDS SUMMARY | 2024-09-15 16:39 | XMS_ITS | Encounter Summary ---
Author Organization [facility] Address [address] [place] [address] Care Team Providers Care Director Of Teenage Activities Name Role Phone Antelmo Davey MD Unavailable [phone] Deacon Valladares MD Unavailable [phone] Shanna June VISUAL BASIC DEVELOPER Unavailable [phone] Rachel Foley MD Primary Care Provider [phone] Tj Najera Unavailable [phone] Anna Mendez APRN.[facility] Primary Care Provider Thomas Alas MD Primary Care Provider [phone] Georgina Barkley MD Unavailable [phone] Source Comments In the event this information is protected by the Federal Confidentiality of Alcohol and Drug AbusePatient Records regulations: The Federal rules restrict any use of the information to criminally investigate or prosecute any alcohol or drug abuse patient.[facility] Encounter Details Date Type Department Care Team (Late st Contact Info) Description 06/15/2022 Patient Msg Orth and Rheum [place] [address] [place] [address] Provider, Ccf Phone Visit Scheduled Social History Tobacco Use Types Packs/Day Years [...] is lower risk 4 06/17/2022 Data from: https://www.neighborhoodatlas.medicine.[facility].edu/. Last address used for calculation [id number] [place] [address] RD [address] 06/17/2022 Education Answer Date Recorded What is the highest level of school you have completed or the highest degree you have received? Master's degree (e.g., MA, MS, Birgit, MEd, DAILY SALES AUDIT CLERK, IVANIA) 10/15/2019 Comments No Sex and Gender [...] Assessment Author No 12/25/2020 6:09 PM Ofelia Connor, RN * Are you blind or do [...] 09/18/2024 12:30 PM EDT Infusion Center Hematology/Oncology [address] [place] [address] [place] [address] Hodges dressing and cap change;Labs as needed per patient 09/22/2024 12:30 PM EDT Office Visit Gastroenterology [address] [place] [id number] Felt Hooker, Hpn [address] [place] [address] HPN / PAGE [id number] 09/22/2024 1:00 PM EDT Office Visit Gastroenterology [address] [place] [id number] Georgina Barkley MD [facility] [address] [place], [place] [address] HPN / PAGE [id number] 09/25/2024 9:00 AM EDT Infusion Center Hematology/Oncology [address] [place] [address] [place] [address] Hodges dressing and cap change;Labs as needed per patient 09/29/2024 10:15 AM EDT Appointment [facility] Endoscopy - ENDO [address] [place] [address] [place] [address] [place] [address] EGD 10/02/2024 9:00 AM EDT Infusion Center Hematology/Oncology [address] [place] [address] [place] [address] Hodges dressing and cap change;Labs as needed per patient 10/09/2024 9:00 AM EDT Infusion Center Hematology/Oncology [address] [place] [address] [place] [address] Hodges dressing and cap change;Labs as needed per patient documented as of this encounter Visit Diagnoses Not on filedocumented in this encounter Additional Health Concerns Infection Onset Date Last Indicated Resolved Time COVID-19 Rule-Out 06/06/2023 06/06/2023 06/06/2023 6:19 PM EDT documented as of this encounter Care Teams Director Of Teenage Activities Relationship Specialty Start Date End Date Rachel Foley MD [address] [place] [address] PCP - General Family Medicine 01/19/22 06/15/22 Anna Mendez APRN.VISUAL BASIC DEVELOPER [address] [address] PCP - General 06/16/22 07/29/23 Thomas Alas MD [address] [place] [address] PCP - General Family Medicine 07/30/23 Antelmo Davey MD [address] [place] [address] 09/25/19 [place] [address] [place] [address] Consulting General Surgery 09/25/19 Shanna June CNP [address] [place] [address] Referring Family Medicine 10/19/19 Tj Najera PA [address] [address] Referring Family Medicine 05/13/22 Georgina Barkley MD [address] [place] [address] Home Parenteral Nutrition Provider Gastroenterology 10/14/23 documented as of this encounter
--- OUTSIDE RECORDS SUMMARY | 2024-09-15 16:39 | XMS_ITS | Encounter Summary ---
Author Organization [facility] Address [address] [place] [address] Care Team Providers Care New Vehicle Sales Consultant Name Role Phone Antelmo Davey MD Unavailable Deacon Valladares MD Unavailable Shanna June CNP Unavailable [phone] Tj Najera Unavailable [phone] Thomas Alas MD Primary Care Provider [phone] Georgina Barkley MD Unavailable [phone] Source Comments In the event this information is protected by the Federal Confidentiality of Alcohol and Drug AbusePatient Records regulations: The Federal rules restrict any use of the information to criminally investigate or prosecute any alcohol or drug abuse patient.[facility] Encounter Details Date Type Department Care Team (Late st Contact Info) Description 12/01/2023 Patient Msg Gastroenterology [address] [address] Kasie Avalos MD 9500 [place] [address] Appointment Request Social History Tobacco Use Types Packs/Day Years Used Date Smoking Tobacco: Never Smokeless Tobacco: Never Alcohol Use Standard Drinks/Week Comments Not Currently 0 (1 standard drink = 0.6 oz pur e alcohol) [facility] Utilities Answer Date Recorded In the [...] any clubs o r organizations such as jainism groups, unions, fraternal or athletic groups, or [...] Answer Date Recorded PHQ-2 score 2 11/29/2023 [facility] [place] of Occupat ional Health - Occupational Stress [...] place to sleep or slept in a snf (including now)? No 08/08/2023 Housing Stability Vital Sign Answer Eugenio e Recorded In the last 12 months, was t here a time when you were not able to pay the mortgage or rent on time? No 12/02/2023 Number of Times Moved in the Last Year Not on fi le 12/02/2023 At any time in the past 12 m [facility], were you homeless or living in a snf (including now)? No 12/02/2023 Area Deprivation Index Answer Date Nayan rded National Score (1-100), lower number is lower ri sk 64 06/17/2022 State Score (1-10), lower number is lower risk 4 06/17/2022 Data from: https://www.neighborhoodatlas.medicine.[facility].edu/. Last address used for calculation [id number] [place] [address] [address] 46 06/17/2022 Education Answer Date Recorded What is the highest level of school you have completed or the highest degree you have received? Master's degree (e.g., MA, MS, Birgit, MEd, FLY WORKER, IVANIA) 10/15/2019 Comments No Sex and [...] 09/18/2024 12:30 PM EDT Infusion Center Hematology/Oncology [address] [place] [address] [place] [address] Carroll dressing and cap change;Labs as needed per patient 09/22/2024 12:30 PM EDT Office Visit Gastroenterology [address] [address] Supply Chain Logistics Manager, Rodneyn [address] [place] [address] HPN / PAGE [id number] 09/22/2024 1:00 PM EDT Office Visit Gastroenterology [address] [place] [id number] Georgina Barkley MD [facility] [address] [place] [address] [id number] HPN / PAGE [id number] 09/25/2024 9:00 AM EDT Infusion Center Hematology/Oncology [address] [place] [address] [place] [address] Hodges dressing and cap change;Labs as needed per patient 09/29/2024 10:15 AM EDT Appointment [facility] Endoscopy - ENDO [address] [place] [address] [place] [address] [place] [address] EGD 10/02/2024 9:00 AM EDT Infusion Center Hematology/Oncology [address] [place] [address] [place] [address] Hodges dressing and cap change;Labs as needed per patient 10/09/2024 9:00 AM EDT Infusion Center Hematology/Oncology [address] [place] [address] [place] [address] Hodges dressing and cap change;Labs as needed per patient documented as of this encounter Visit Diagnoses Not on filedocumented in this encounter Care Teams New Vehicle Sales Consultant Relationship Specialty Start Date End Date Thomas Alas MD [address] [place] [address] PCP - General Family Medicine 07/30/23 Antelmo Davey MD [address] [place] [address] 09/25/19 [place] [address] [place] [address] Consulting General Surgery 09/25/19 Shanna June, BETH [address] [place] [address] Referring Family Medicine 10/19/19 Tj Najera PA [address] [facility] [place] [address] Referring Family Medicine 05/13/22 Georgina Barkley MD [address] [place] [address] Home Parenteral Nutrition Provider Gastroenterology 10/14/23 documented as of this encounter
--- OUTSIDE RECORDS SUMMARY | 2024-09-15 16:39 | XMS_ITS | Encounter Summary ---
Author Organization [facility] Address [address] [place] [address] Care Team Providers Care Basin Operator Name Role Phone Antelmo Davey MD Unavailable Deacon Valladares MD Unavailable Shanna June CNP Unavailable [phone] Tj Najera Unavailable [phone] Thomas Alas MD Primary Care Provider [phone] Georgina Barkley MD Unavailable [phone] Source Comments In the event this information is protected by the Federal Confidentiality of Alcohol and Drug AbusePatient Records regulations: The Federal rules restrict any use of the information to criminally investigate or prosecute any alcohol or drug abuse patient.[facility] Encounter Details Date Type Department Care Team (Late st Contact Info) Description 11/05/2023 Patient Msg Pain Management [address] [place] [address] Boogie Murguia MD [address] [place] [address] Appointment Request Social History Tobacco Use Types Packs/Day Years Used Date Smoking Tobacco: Never Smokeless Tobacco: Never Alcohol Use Standard Drinks/Week Comments Not Currently 0 (1 standard drink = 0.6 oz pur e alcohol) [facility] Utilities Answer Date Recorded In the [...] often do you attend chur ch or judaism services? 1 to 4 times per year [...] Answer Date Recorded PHQ-2 score 2 09/27/2023 [facility] [place] of Occupat ional Health - Occupational Stress [...] in a mcc (including now)? No 08/08/2023 Housing Stability Vital Sign Answer Eugenio e Recorded In the last 12 months, was t here a time when you were not able to pay the mortgage or rent on time? No 10/11/2023 Number of Times Moved in the Last Year Not on fi le 10/11/2023 At any time in the past 12 m [facility], were you homeless or living in a mcc (including now)? No 10/11/2023 Area Deprivation Index Answer Date Nayan rded National Score (1-100), lower number is lower ri sk 64 06/17/2022 State Score (1-10), lower number is lower risk 4 06/17/2022 Data from: https://www.neighborhoodatlas.medicine.[facility].edu/. Last address used for calculation [address] [place] [address] RD [address] 06/17/2022 Education Answer Date Recorded What is the highest level of school you have completed or the highest degree you have received? Master's degree (e.g., MA, MS, Birgit, MEd, BUSINESS PLANNING DIRECTOR, IVANIA) 10/15/2019 Comments No Sex and [...] 12:30 PM EDT Infusion Center Hematology/Oncology [address] [place] [address] [place] [address] Carroll dressing and cap change;Labs as needed per patient 09/22/2024 12:30 PM EDT Office Visit Gastroenterology [address] [address] Furs Salesperson, Hpn [address] [place] [address] HPN / PAGE [id number] 09/22/2024 1:00 PM EDT Office Visit Gastroenterology [address] [place] [id number] Georgina Barkley MD [facility] [address] [place] [address] [id number] HPN / PAGE [id number] 09/25/2024 9:00 AM EDT Infusion Center Hematology/Oncology [address] [place] [address] [place] [address] Hodges dressing and cap change;Labs as needed per patient 09/29/2024 10:15 AM EDT Appointment [facility] Endoscopy - ENDO [address] [place] [phone] [place] [address] [place] [address] EGD 10/02/2024 9:00 AM EDT Infusion Center Hematology/Oncology [address] [place] [address] [place] [address] Hodges dressing and cap change;Labs as needed per patient 10/09/2024 9:00 AM EDT Infusion Center Hematology/Oncology [address] [place] [address] [place] [address] Hodges dressing and cap change;Labs as needed per patient documented as of this encounter Visit Diagnoses Not on filedocumented in this encounter Care Teams Basin Operator Relationship Specialty Start Date End Date Thomas Alas MD [address] [place] [address] PCP - General Family Medicine 07/30/23 Antelmo Davey MD [address] [place] [address] 09/25/19 [place] [address] [place] [address] Consulting General Surgery 09/25/19 Shanna June CNP [address] [place] [address] Referring Family Medicine 10/19/19 Tj Najera PA [address] [address] Referring Family Medicine 05/13/22 Georgina aBrkley MD [address] [place] [address] Home Parenteral Nutrition Provider Gastroenterology 10/14/23 documented as of this encounter
--- OUTSIDE RECORDS SUMMARY | 2024-09-15 16:39 | XMS_ITS | Encounter Summary ---
Author Organization [facility] Address [address] [place] [address] Care Team Providers Care Telecommunications Network Planner Name Role Phone Antelmo Davey MD Unavailable [phone] Deacon Valladares MD Unavailable Shanna June CNP Unavailable [phone] Tj Najera Unavailable [phone] Thomas Alas MD Primary Care Provider [phone] Georgina Barkley MD Unavailable [phone] Source Comments In the event this information is protected by the Federal Confidentiality of Alcohol and Drug AbusePatient Records regulations: The Federal rules restrict any use of the information to criminally investigate or prosecute any alcohol or drug abuse patient.[facility] Encounter Details Date Type Department Care Team (Latest Contact Info) Description 12/07/2023 Get Medical Advice Gastroenterology [address] [address] Georgina Barkley MD [facility] [address] [address] Hospitalization Symptoms Social History Tobacco Use Types Packs/Day Years Used Date Smoking Tobacco: Never Smokeless Tobacco: Never Alcohol Use Standard Drinks/Week Comments Not Currently 0 (1 standard drink = 0.6 oz pur e alcohol) [facility] Utilities Answer Date Recorded In [...] often do you attend chur ch or confucianist services? 1 to 4 times per year 10/28/2022 Do you belong to any clubs o r organizations such as catholic groups, unions, fraternal or athletic groups, or [...] Answer Date Recorded PHQ-2 score 2 11/29/2023 [facility] [place] of Occupat ional Health - Occupational Stress [...] living in a alf (including now)? No 12/02/2023 Area Deprivation Index Answer Date Nayan rded National Score (1-100), lower number is lower ri sk 64 06/17/2022 State Score (1-10), lower number is lower risk 4 06/17/2022 Data from: https://www.neighborhoodatlas.medicine.[facility].edu/. Last address used for calculation [id number] [place] [address] RD [address] 06/17/2022 Education Answer Date Recorded What is the highest level of school you have completed or the highest degree you have received? Master's degree (e.g., MA, MS, Birgit, MEd, FLAT BED OPERATOR, IVANIA) 10/15/2019 Comments No Sex and [...] Georgina Burgos RN documented in this encounter Miscellaneous Notes * Telephone Encounter - Nilay Crabtree - 12/09/2023 11:01 AM EDT Pt called following up on previous message since she has heard no return information. [phone] documented in this encounter Plan of Treatment Upcoming Encounters Date Type Department Care Team (Latest Contact Info) Description 09/18/2024 12:30 PM EDT Infusion Center Hematology/Oncology [address] [place] [address] [place] [address] Hodges dressing and cap change;Labs as needed per patient 09/22/2024 12:30 PM EDT Office Visit Gastroenterology [address] [address] Life Skills Instructor, Hpn [address] [place] [address] HPN / PAGE [id number] 09/22/2024 1:00 PM EDT Office Visit Gastroenterology [address] [address] Georgina Barkley MD [facility] [address] [place] [address] HPN / PAGE [id number] 09/25/2024 9:00 AM EDT Infusion Center Hematology/Oncology [address] [place] [address] [place] [address] Hodges dressing and cap change;Labs as needed per patient 09/29/2024 10:15 AM EDT Appointment [facility] Endoscopy - ENDO [address] [place] [address] [place] [address] [place] [address] EGD 10/02/2024 9:00 AM EDT Infusion Center Hematology/Oncology [address] [place] [address] [place] [address] Hodges dressing and cap change;Labs as needed per patient 10/09/2024 9:00 AM EDT Infusion Center Hematology/Oncology [address] [place] [address] [place] [address] Hodges dressing and cap change;Labs as needed per patient documented as of this encounter Goals Goal Patient Goal Type Associated Problems Recent Progress Patient-Stated? Author Blood Pressure < 140/90 Blood Pressure 112/76( 025 8:48 AM EDT) No Hannah Devlin MD documented as of this encounter Visit Diagnoses Not on filedocumented in this encounter Care Teams Telecommunications Network Planner Relationship Specialty Start Date End Date Thomas Alas MD [address] [facility] [place] [address] PCP - General Family Medicine 07/30/23 Antelmo Davey MD [address] [facility] [place] [address] 09/25/19 [place] [address] [place] [address] Consulting General Surgery 09/25/19 Shanna June CNP [address] [place] [address] Referring Family Medicine 10/19/19 Tj Najera PA [address] [place] [address] Referring Family Medicine 05/13/22 Georgina Barkley MD [address] [place] [address] Home Parenteral Nutrition Provider Gastroenterology 10/14/23 documented as of this encounter
--- OUTSIDE RECORDS SUMMARY | 2024-09-15 16:39 | XMS_ITS | Encounter Summary ---
Author Organization [facility] Address [address] [place] [address] Care Team Providers Care Marketing Rep Name Role Phone Antelmo Davey MD Unavailable Deacon Valladares MD Unavailable Shanna June CNP Unavailable [phone] Tj Najera Unavailable [phone] Thomas Alas MD Primary Care Provider [phone] Georgina Barkley MD Unavailable [phone] Source Comments In the event this information is protected by the Federal Confidentiality of Alcohol and Drug AbusePatient Records regulations: The Federal rules restrict any use of the information to criminally investigate or prosecute any alcohol or drug abuse patient.[facility] Encounter Details Date Type Department Care Team (Late st Contact Info) Description 12/06/2023 Patient Msg General Surgery [address] [place] [address] [place] [address] Provider, [facility] apt 12/09 Social History Tobacco Use Types Packs/Day Years Used Date Smoking Tobacco: Never Smokeless Tobacco: Never Alcohol Use Standard Drinks/Week Comments Not Currently 0 (1 standard drink = 0.6 oz pur e alcohol) [facility] Utilities Answer Date Recorded In the past [...] any clubs o r organizations such as caodaism groups, unions, fraternal or athletic groups, or [...] Answer Date Recorded PHQ-2 score 2 11/29/2023 [facility] of Occupat ional Health - [...] in the past 12 m [facility], were you homeless or living in a penitentiary (including now)? No 12/02/2023 Area Deprivation Index Answer Date Nayan rded National Score (1-100), lower number is lower ri sk 64 06/17/2022 State Score (1-10), lower number is lower risk 4 06/17/2022 Data from: https://www.neighborhoodatlas.medicine.[facility].edu/. Last address used for calculation [id number] [address] [facility] [address] 06/17/2022 Education Answer Date Recorded What is the highest level of school you have completed or the highest degree you have received? Master's degree (e.g., MA, MS, Birgit, MEd, HR SYSTEMS ANALYST, IVANIA) 10/15/2019 Comments No Sex and Gender [...] 09/18/2024 12:30 PM EDT Infusion Center Hematology/Oncology [address] [place] [address] [place] [address] Carroll dressing and cap change;Labs as needed per patient 09/22/2024 12:30 PM EDT Office Visit Gastroenterology [address] [address] Planning Management It Specialist, Grupo [address] [place] [address] HPN / PAGE [id number] 09/22/2024 1:00 PM EDT Office Visit Gastroenterology [address] [place] [phone] Georgina Barkley MD [facility] [address] [place], [place] [address] HPN / PAGE [id number] 09/25/2024 9:00 AM EDT Infusion Center Hematology/Oncology [address] [place] [address] [place] [address] Hodges dressing and cap change;Labs as needed per patient 09/29/2024 10:15 AM EDT Appointment [facility] Endoscopy - ENDO [address] [place] [address] [place] [address] [place] [address] EGD 10/02/2024 9:00 AM EDT Infusion Center Hematology/Oncology [address] [place] [address] [place] [address] Hodges dressing and cap change;Labs as needed per patient 10/09/2024 9:00 AM EDT Infusion Center Hematology/Oncology [address] [place] [address] [place] [address] Hodges dressing and cap change;Labs as needed per patient documented as of this encounter Goals Goal Patient Goal Type Associated Problems Recent Progress Patient-Stated? Author Blood Pressure < 140/90 Blood Pressure 112/76( 025 8:48 AM EDT) No Hannah Devlin MD documented as of this encounter Visit Diagnoses Not on filedocumented in this encounter Care Teams Marketing Rep Relationship Specialty Start Date End Date Thomas Alas MD [address] [place] [address] PCP - General Family Medicine 07/30/23 Antelmo Davey MD [address] [place] [address] 09/25/19 [place] [address] [place] [address] Consulting General Surgery 09/25/19 Shanna June CNP [address] [place] [address] Referring Family Medicine 10/19/19 Tj Najera PA [address] [address] Referring Family Medicine 05/13/22 Georgina Barkley MD [address] [place] [address] Home Parenteral Nutrition Provider Gastroenterology 10/14/23 documented as of this encounter
--- OUTSIDE RECORDS SUMMARY | 2024-09-15 16:39 | XMS_ITS | Encounter Summary ---
Author Organization [facility] Address [address] [place], [place] [address] Care Team Providers Care Manager Revenue Name Role Phone TiffanieMarcos DO Primary Care Provider [phone] Antelmo Davey MD Unavailable [phone] Deacon Valladares MD Unavailable [phone] Shanna June CNP Unavailable [phone] Shanna June SUBSTANCE ADDICTION COORDINATOR Primary Care Provider [phone] Rachel Foley MD Primary Care Provider [phone] Tj Najera Unavailable [phone] Anna Mendez APRN.SUBSTANCE ADDICTION COORDINATOR Primary Care Provider Thomas Alas MD Primary Care Provider + Georgina Barkley MD Unavailable [phone] Source Comments In the event this information is protected by the Federal Confidentiality of Alcohol and Drug AbusePatient Records regulations: The Federal rules restrict any use of the information to criminally investigate or prosecute any alcohol or drug abuse patient.[facility] Encounter Details Date Type Department Care Team (Late st Contact Info) Description 10/09/2019 Get Medical Advice General Surgery [address] [phone] Maricruz Thorne, MAINTENANCE INSTRUCTOR.CULTURAL CENTRE MANAGER [address] [place] [address] RE: Visit Follow Up Question Social History [...] have Coronavirus / COVID-19? No / Unsure 10/12/2019 9:35 AM EDT documented as of this encounter Plan of Treatment Upcoming Encounters Date Type Department Care Team (Latest Contact Info) Description 09/18/2024 12:30 PM EDT Infusion Center Hematology/Oncology [address] [place] [address] [place] [address] Carroll dressing and cap change;Labs as needed per patient 09/22/2024 12:30 PM EDT Office Visit Gastroenterology [address] [place] [address] [phone] Green Chain Off Bearer, Hpn [address] [place] [address] HPN / PAGE [phone] 09/22/2024 1:00 PM EDT Office Visit Gastroenterology [address] [place] [phone] Georgina Barkley MD [facility] [address] [place], [place] [phone] HPN / PAGE [id number] 09/25/2024 9:00 AM EDT Infusion Center Hematology/Oncology [address] [place] [address] [place] [address] Hodges dressing and cap change;Labs as needed per patient 09/29/2024 10:15 AM EDT Appointment [facility] Endoscopy - ENDO [address] [place] [address] [place] [address] [place] [address] EGD 10/02/2024 9:00 AM EDT Infusion Center Hematology/Oncology [address] [place] [address] [place] [address] Hodges dressing and cap change;Labs as needed per patient 10/09/2024 9:00 AM EDT Infusion Center Hematology/Oncology [address] [place] [address] [place] [address] Hodges dressing and cap change;Labs as needed [...] documented as of this encounter Care Teams Manager Revenue Relationship Specialty Start Date End Date Marcos Moreno DO [address] [place] [address] [place] [address] PCP - General Commodity Specialist 09/25/19 01/30/20 Shanna June CNP [address] [place] [address] PCP - General Family Medicine 01/31/20 01/18/22 Rachel Foley MD [address] [place] [address] PCP - General Family Medicine 01/19/22 06/15/22 Anna Mendez APRN.SUBSTANCE ADDICTION COORDINATOR [address] [address] PCP - General 06/16/22 07/29/23 Thomas Alas MD [address] [place] [address] PCP - General Family Medicine 07/30/23 Antelmo Davey MD [address] [place] [address] 09/25/19 [place] [address] [place] [address] Consulting General Surgery 09/25/19 Shanna June CNP [address] [place] [address] Referring Family Medicine 10/19/19 Tj Najera PA [address] [address] [place] [address] Referring Family Medicine 05/13/22 Georgina Barkley MD [address] [place] [address] Home Parenteral Nutrition Provider Gastroenterology 10/14/23 documented as of this encounter
--- OUTSIDE RECORDS SUMMARY | 2024-09-15 16:39 | XMS_ITS | Encounter Summary ---
Author Organization [facility] Address [address] [place] [address] Care Team Providers Care Soda Dispenser Name Role Phone Antelmo Davey MD Unavailable Deacon Valladares MD Unavailable Shanna June [facility] Unavailable [phone] Tj Najera Unavailable [phone] Anna Mendez APRN.[facility] Primary Care Provider Thomas Alas MD Primary Care Provider [phone] Georgina Barkley MD Unavailable [phone] Source Comments In the event this information is protected by the Federal Confidentiality of Alcohol and Drug AbusePatient Records regulations: The Federal rules restrict any use of the information to criminally investigate or prosecute any alcohol or drug abuse patient.[facility] Encounter Details Date Type Department Care Team (Late st Contact Info) Description 07/21/2022 Abstract Gastroenterology [address] [place] [address] Linda Hale RN Social History Tobacco Use Types Packs/Day Years [...] is lower risk 4 06/17/2022 Data from: https://www.neighborhoodatlas.medicine.[facility].edu/. Last address used for calculation [address] 06/17/2022 Education Answer Date Recorded What is the highest level of school you have completed or the highest degree you have received? Master's degree (e.g., MA, MS, Birgit, MEd, PRINTER FLOOR COVERING ASSISTANT, IVANIA) 10/15/2019 Comments No Sex and [...] EDT [facility] Center Hematology/Oncology [address] [place] [address] [place] [address] Carroll dressing and cap change;Labs as needed per patient 09/22/2024 12:30 PM EDT Office Visit Gastroenterology [address] [id number] Security Shift Supervisor, Grupo [address] [place] [address] HPN / PAGE [id number] 09/22/2024 1:00 PM EDT Office Visit Gastroenterology [address] [id number] Paski, Georgina, MD [place] [id number] HPN / PAGE [id number] 09/25/2024 9:00 AM EDT Infusion Center Hematology/Oncology [address] [place] [address] [place] [address] Hodges dressing and cap change;Labs as needed per patient 09/29/2024 10:15 AM EDT Appointment [facility] Endoscopy - ENDO [address] [id number] [place] [address] [place] [address] EGD 10/02/2024 9:00 AM EDT Infusion Center Hematology/Oncology [address] [place] [address] [place] [address] Hodges dressing and cap change;Labs as needed per patient 10/09/2024 9:00 AM EDT Infusion Center Hematology/Oncology [address] [place] [address] [place] [address] Hodges dressing and cap change;Labs as needed per patient documented as of this encounter Visit Diagnoses Not on filedocumented in this encounter Additional Health Concerns Infection Onset Date Last Indicated Resolved Time COVID-19 Rule-Out 06/06/2023 06/06/2023 06/06/2023 6:19 PM EDT documented as of this encounter Care Teams Soda Dispenser Relationship Specialty Start Date End Date Anna Mendez, TUBE MILL OPERATOR.SPIRAL MACHINE OPERATOR [address] [address] PCP - General 06/16/22 07/29/23 Thomas Alas MD [address] [place] [address] PCP - General Family Medicine 07/30/23 Antelmo Davey MD [address] [place] [address] 09/25/19 [place] [address] [place] [address] Consulting General Surgery 09/25/19 Shanna June CNP [address] [place] [address] Referring Family Medicine 10/19/19 Tj Najera PA [address] [address] Referring Family Medicine 05/13/22 Georgina Barkley MD [address] [place] [address] Home Parenteral Nutrition Provider Gastroenterology 10/14/23 documented as of this encounter
--- OUTSIDE RECORDS SUMMARY | 2024-09-15 16:39 | XMS_ITS | Encounter Summary ---
Author Organization [facility] Address [address] [place] [address] Care Team Providers Care Airplane Pilot Chief Name Role Phone Antelmo Davey MD Unavailable Deacon Valladares MD Unavailable [phone] Shanna June CNP Unavailable [phone] Tj Najera Unavailable [phone] Thomas Alas MD Primary Care Provider [phone] Georgina Barkley MD Unavailable [phone] Source Comments In the event this information is protected by the Federal Confidentiality of Alcohol and Drug AbusePatient Records regulations: The Federal rules restrict any use of the information to criminally investigate or prosecute any alcohol or drug abuse patient.[facility] Encounter Details Date Type Department Care Team (Late st Contact Info) Description 12/12/2023 Get Medical Advice Gastroenterology [address] [address] Kasie Avalos MD [address] [place] [address] Symptoms Social History Tobacco Use Types Packs/Day Years Used Date Smoking Tobacco: Never Smokeless Tobacco: Never Alcohol Use Standard Drinks/Week Comments Not Currently 0 (1 standard drink = 0.6 oz pur e alcohol) [facility] Utilities Answer Date Recorded In [...] often do you attend chur ch or anglican services? 1 to 4 times per year 10/28/2022 Do you belong to any clubs o r organizations such as presybeterian groups, unions, fraternal or athletic groups, or [...] Answer Date Recorded PHQ-2 score 2 11/29/2023 [facility] [place] of Occupat ional Health - Occupational Stress [...] place to sleep or slept in a usp (including now)? No 08/08/2023 Housing Stability Vital Sign Answer Eugenio e Recorded In the last 12 months, was t here a time when you were not able to pay the mortgage or rent on time? No 12/02/2023 Number of Times Moved in the Last Year Not on fi le 12/02/2023 At any time in the past 12 m [facility], were you homeless or living in a usp (including now)? No 12/02/2023 Area Deprivation Index Answer Date Nayan rded National Score (1-100), lower number is lower ri sk 64 06/17/2022 State Score (1-10), lower number is lower risk 4 06/17/2022 Data from: https://www.neighborhoodatlas.medicine.[facility].edu/. Last address used for calculation [id number] [place] [address] [address] 06/17/2022 Education Answer Date Recorded What is the highest level of school you have completed or the highest degree you have received? Master's degree (e.g., MA, MS, Birgit, MEd, ASSEMBLER INSTALLER GENERAL, IVANIA) 10/15/2019 Comments No Sex and Gender [...] 09/18/2024 12:30 PM EDT Infusion Center Hematology/Oncology [address] [place] [address] [place] [address] Hodges dressing and cap change;Labs as needed per patient 09/22/2024 12:30 PM EDT Office Visit Gastroenterology [address] [address] Quality Reviewer, Hpn [address] [place] [address] HPN / PAGE [id number] 09/22/2024 1:00 PM EDT Office Visit Gastroenterology [address] [id number] Georgina Barkley MD [facility] [address] [address] HPN / PAGE [id number] 09/25/2024 9:00 AM EDT Infusion Center Hematology/Oncology [address] [place] [address] [place] [address] Hodges dressing and cap change;Labs as needed per patient 09/29/2024 10:15 AM EDT Appointment [facility] Endoscopy - ENDO [address] [place] [address] [id number] [place] [address] [address] [id number] EGD 10/02/2024 9:00 AM EDT Infusion Center Hematology/Oncology [address] [place] [address] [place] [address] Hodges dressing and cap change;Labs as needed per patient 10/09/2024 9:00 AM EDT Infusion Center Hematology/Oncology [address] [place] [address] [place] [address] Hodges dressing and cap change;Labs as needed per patient documented as of this encounter Goals Goal Patient Goal Type Associated Problems Recent Progress Patient-Stated? Author Blood Pressure < 140/90 Blood Pressure 112/76( 025 8:48 AM EDT) No Hannah Devlin MD documented as of this encounter Visit Diagnoses Not on filedocumented in this encounter Care Teams Airplane Pilot Chief Relationship Specialty Start Date End Date Thomas Alas MD [address] [place] [address] PCP - General Family Medicine 07/30/23 Antelmo Davey MD [address] [place] [address] 09/25/19 [place] [address] [place] [address] Consulting General Surgery 09/25/19 Shanna June CNP [address] [place] [address] Referring Family Medicine 10/19/19 Tj Najera PA [address] [address] Referring Family Medicine 05/13/22 Georgina Barkley MD [address] [place] [address] Home Parenteral Nutrition Provider Gastroenterology 10/14/23 documented as of this encounter
--- OUTSIDE RECORDS SUMMARY | 2024-09-15 16:39 | XMS_ITS | Encounter Summary ---
Author Organization [facility] Address [address] [place] [address] Care Team Providers Care Histological Illustrator Name Role Phone Antelmo Davey MD Unavailable [phone] Deacon Valaldares MD Unavailable Shanna June CNP Unavailable [phone] Tj Najera Unavailable [phone] Thomas Alas MD Primary Care Provider [phone] Georgina Barkley MD Unavailable [phone] Source Comments In the event this information is protected by the Federal Confidentiality of Alcohol and Drug AbusePatient Records regulations: The Federal rules restrict any use of the information to criminally investigate or prosecute any alcohol or drug abuse patient.[facility] Encounter Details Date Type Department Care Team (Late st Contact Info) Description 12/23/2023 Patient Msg Pain Management [address] [place], [place] [id number] Aryan Ramos MD [address] [place], [place] [id number] Appointment Request Social History Tobacco Use Types Packs/Day Years Used Date Smoking Tobacco: Never Smokeless Tobacco: Never Alcohol Use Standard Drinks/Week Comments Not Currently 0 (1 standard drink = 0.6 oz pur e alcohol) [facility] Utilities Answer Date Recorded In [...] often do you attend chur ch or adventist services? 1 to 4 times per year [...] Answer Date Recorded PHQ-2 score 2 11/29/2023 [facility] [place] of Occupat ional Health - Occupational Stress [...] any time in the past 12 m [facility], were you homeless or living in a group home (including now)? No 12/02/2023 Area Deprivation Index Answer Date Nayan rded National Score (1-100), lower number is lower ri sk 64 06/17/2022 State Score (1-10), lower number is lower risk 4 06/17/2022 Data from: https://www.neighborhoodatlas.medicine.[facility].edu/. Last address used for calculation [id number] [place] [address] [address] 06/17/2022 Education Answer Date Recorded What is the highest level of school you have completed or the highest degree you have received? Master's degree (e.g., MA, MS, Birgit, MEd, CHANNEL TURNER, IVANIA) 10/15/2019 Comments No Sex and Gender [...] 12:30 PM EDT Infusion Center Hematology/Oncology [address] [place] [address] [place] [address] Hodges dressing and cap change;Labs as needed per patient 09/22/2024 12:30 PM EDT Office Visit Gastroenterology [address] [address] Duralumin Mechanic, Hpn [address] [place] [address] HPN / PAGE [id number] 09/22/2024 1:00 PM EDT Office Visit Gastroenterology [address] [address] Georgina Barkley MD [facility] [address] [id number] HPN / PAGE [id number] 09/25/2024 9:00 AM EDT Infusion Center Hematology/Oncology [address] [place] [address] [place] [address] Hodges dressing and cap change;Labs as needed per patient 09/29/2024 10:15 AM EDT Appointment [facility] Endoscopy - ENDO [address] [id number] [place] [address] [address] [id number] EGD 10/02/2024 9:00 AM EDT Infusion Center Hematology/Oncology [address] [place] [address] [place] [address] Hodges dressing and cap change;Labs as needed per patient 10/09/2024 9:00 AM EDT Infusion Center Hematology/Oncology [address] [place] [address] [place] [address] Hodges dressing and cap change;Labs as needed per patient documented as of this encounter Goals Goal Patient Goal Type Associated Problems Recent Progress Patient-Stated? Author Blood Pressure < 140/90 Blood Pressure 112/76( 025 8:48 AM EDT) No Hannah Devlin MD documented as of this encounter Visit Diagnoses Not on filedocumented in this encounter Care Teams Histological Illustrator Relationship Specialty Start Date End Date Thomas Alas MD [address] [place] [address] PCP - General Family Medicine 07/30/23 Antelmo Davey MD [address] [facility] [place] [address] 09/25/19 [place] [address] [place] [address] Consulting General Surgery 09/25/19 Shanna June CNP [address] [place] [address] Referring Family Medicine 10/19/19 Tj Najera PA [address] [address] Referring Family Medicine 05/13/22 Georgina Barkley MD [address] [place] [address] Home Parenteral Nutrition Provider Gastroenterology 10/14/23 documented as of this encounter
--- OUTSIDE RECORDS SUMMARY | 2024-09-15 16:39 | XMS_ITS | Encounter Summary ---
Author Organization [facility] Address [address] [place] [address] Care Team Providers Care New Accounts Banking Representative Name Role Phone Antelmo Davey MD Unavailable [phone] Deacon Valladares MD Unavailable Shanna June CNP Unavailable [phone] Tj Najera Unavailable [phone] Thomas Alas MD Primary Care Provider [phone] Georgina Barkley MD Unavailable [phone] Source Comments In the event this information is protected by the Federal Confidentiality of Alcohol and Drug AbusePatient Records regulations: The Federal rules restrict any use of the information to criminally investigate or prosecute any alcohol or drug abuse patient.[facility] Encounter Details Date Type Department Care Team (Late st Contact Info) Description 11/15/2023 Get Medical Advice General Surgery [address] [place], [place] [phone] [place] [address] [address] [place], [place] [phone] J Tube Social History Tobacco Use Types Packs/Day Years [...] often do you attend chur ch or buddhist services? 1 to 4 times per year 10/28/2022 Do you belong to any clubs o r organizations such as sikh groups, unions, fraternal or athletic groups, or [...] Answer Date Recorded PHQ-2 score 2 11/15/2023 [facility] [place] of Occupat ional Health - Occupational Stress [...] any time in the past 12 m [facility], were you homeless or living in a detention (including now)? No 10/11/2023 Area Deprivation Index Answer Date Nayan rded National Score (1-100), lower number is lower ri sk 64 06/17/2022 State Score (1-10), lower number is lower risk 4 06/17/2022 Data from: https://www.neighborhoodatlas.medicine.[facility].edu/. Last address used for calculation [address] [place] [address] [address] 06/17/2022 Education Answer Date Recorded What is the highest level of school you have completed or the highest degree you have received? Master's degree (e.g., MA, MS, Birgit, MEd, SINGLE PASS SOIL STABILIZER OPERATOR, IVANIA) 10/15/2019 Comments No Sex and [...] Assessment Author No 10/12/2023 12:17 PM EDT Lorteta Ceron RN * Are you blind or [...] 12:30 PM EDT Infusion Center Hematology/Oncology [address] [place] [address] [place] [address] Carroll dressing and cap change;Labs as needed per patient 09/22/2024 12:30 PM EDT Office Visit Gastroenterology [address] [address] Diesel Mechanic Farm, Rodneyn [address] [place] [address] HPN / PAGE [id number] 09/22/2024 1:00 PM EDT Office Visit Gastroenterology [address] [id number] Georgina Barkley MD [facility] [address] [id number] HPN / PAGE [id number] 09/25/2024 9:00 AM EDT Infusion Center Hematology/Oncology [address] [place] [address] [place] [address] Hodges dressing and cap change;Labs as needed per patient 09/29/2024 10:15 AM EDT Appointment [facility] Endoscopy - ENDO [address] [phone] [place] [address] [place] [address] EGD 10/02/2024 9:00 AM EDT Infusion Center Hematology/Oncology [address] [place] [address] [place] [address] Hodges dressing and cap change;Labs as needed per patient 10/09/2024 9:00 AM EDT Infusion Center Hematology/Oncology [address] [place] [address] [place] [address] Hodges dressing and cap change;Labs as needed per patient documented as of this encounter Visit Diagnoses Not on filedocumented in this encounter Care Teams New Accounts Banking Representative Relationship Specialty Start Date End Date Thomas Alas MD [address] [place] [address] PCP - General Family Medicine 07/30/23 Antelmo Davey MD [address] [place] [address] 09/25/19 [place] [address] [place] [address] Consulting General Surgery 09/25/19 Shanna June, BETH [address] [place] [address] Referring Family Medicine 10/19/19 Tj Najera PA [address] [facility] [place] [address] Referring Family Medicine 05/13/22 Georgina Barkley MD [address] [place] [address] Home Parenteral Nutrition Provider Gastroenterology 10/14/23 documented as of this encounter
--- OUTSIDE RECORDS SUMMARY | 2024-09-15 16:39 | XMS_ITS | Encounter Summary ---
Author Organization [facility] Address [address] [place] [address] Care Team Providers Care Supervisory Geographer Name Role Phone Antelmo Davey MD Unavailable [phone] Deacon Valladares MD Unavailable Shanna June CNP Unavailable [phone] Tj Najera Unavailable [phone] Thomas Alas MD Primary Care Provider [phone] Georgina Barkley MD Unavailable [phone] Source Comments In the event this information is protected by the Federal Confidentiality of Alcohol and Drug AbusePatient Records regulations: The Federal rules restrict any use of the information to criminally investigate or prosecute any alcohol or drug abuse patient.[facility] Encounter Details Date Type Department Care Team (Late st Contact Info) Description 11/29/2023 Get Medical Advice Gastroenterology [address] [address] Georgina Barkley MD [facility] [address] [address] Symptoms Social History Tobacco Use Types Packs/Day Years Used Date Smoking Tobacco: Never Smokeless Tobacco: Never Alcohol Use Standard Drinks/Week Comments Not Currently 0 (1 standard drink = 0.6 oz pur e alcohol) [facility] Utilities Answer Date Recorded In [...] often do you attend chur ch or adventism services? 1 to 4 times per year [...] Answer Date Recorded PHQ-2 score 2 11/29/2023 [facility] of Occupat ional Health - Occupational Stress [...] in a skilled nursing (including now)? No 08/08/2023 Housing Stability Vital Sign Answer Eugenio e Recorded In the last 12 months, was t here a time when you were not able to pay the mortgage or rent on time? No 12/02/2023 Number of Times Moved in the Last Year Not on fi le 12/02/2023 At any time in the past 12 m [facility], were you homeless or living in a skilled nursing (including now)? No 12/02/2023 Area Deprivation Index Answer Date Nayan rded National Score (1-100), lower number is lower ri sk 64 06/17/2022 State Score (1-10), lower number is lower risk 4 06/17/2022 Data from: https://www.neighborhoodatlas.medicine.[facility].edu/. Last address used for calculation [id number] [place] [address] RD [address] 06/17/2022 Education Answer Date Recorded What is the highest level of school you have completed or the highest degree you have received? Master's degree (e.g., MA, MS, Birgit, MEd, [employer], IVANIA) 10/15/2019 Comments No Sex and Gender [...] 12:30 PM EDT Infusion Center Hematology/Oncology [address] [place] [address] [place] [address] Carroll dressing and cap change;Labs as needed per patient 09/22/2024 12:30 PM EDT Office Visit Gastroenterology [address] [address] Transfer Driver, Rodneyn [address] [place] [address] HPN / PAGE [id number] 09/22/2024 1:00 PM EDT Office Visit Gastroenterology [address] [phone] Georgina Barkley MD [facility] [address] [id number] HPN / PAGE [id number] 09/25/2024 9:00 AM EDT Infusion Center Hematology/Oncology [address] [place] [address] [place] [address] Hodges dressing and cap change;Labs as needed per patient 09/29/2024 10:15 AM EDT Appointment [facility] Endoscopy - ENDO [address] [place] [address] [place] [address] [place] [address] EGD 10/02/2024 9:00 AM EDT Infusion Center Hematology/Oncology [address] [place] [address] [place] [address] Hodges dressing and cap change;Labs as needed per patient 10/09/2024 9:00 AM EDT Infusion Center Hematology/Oncology [address] [place] [address] [place] [address] Hodges dressing and cap change;Labs as needed per patient documented as of this encounter Visit Diagnoses Not on filedocumented in this encounter Care Teams Supervisory Geographer Relationship Specialty Start Date End Date Thomas Alas MD [address] [place] [address] PCP - General Family Medicine 07/30/23 Antelmo Davey MD [address] [place] [address] 09/25/19 [place] [address] [place] [address] Consulting General Surgery 09/25/19 Shanna June, BETH [address] [place] [address] Referring Family Medicine 10/19/19 Tj Najera PA [address] [facility] [place] [address] Referring Family Medicine 05/13/22 Georgina Barkley MD [address] [place] [address] Home Parenteral Nutrition Provider Gastroenterology 10/14/23 documented as of this encounter
--- OUTSIDE RECORDS SUMMARY | 2024-09-15 16:40 | XMS_ITS | Encounter Summary ---
Author Organization [facility] Address [address] [place] [address] Care Team Providers Care Photo Tech Name Role Phone Antelmo Davey MD Unavailable Deacon Valladares MD Unavailable Shanna June CNP Unavailable [phone] Tj Najera Unavailable [phone] Thomas Alas MD Primary Care Provider [phone] Georgina Barkley MD Unavailable [phone] Source Comments In the event this information is protected by the Federal Confidentiality of Alcohol and Drug AbusePatient Records regulations: The Federal rules restrict any use of the information to criminally investigate or prosecute any alcohol or drug abuse patient.[facility] Encounter Details Date Type Department Care Team (Late st Contact Info) Description 01/06/2024 Get Medical Advice Gastroenterology [address] [address] Kasie Avalos MD 9500 [place] [address] Levels and symptoms Social History Tobacco Use Types Packs/Day Years Used Date Smoking Tobacco: Never Smokeless Tobacco: Never Alcohol Use Standard Drinks/Week Comments Not Currently 0 (1 standard drink = 0.6 oz pur e alcohol) [facility] Utilities Answer Date Recorded In the [...] often do you attend chur ch or anabaptist services? 1 to 4 times per year 10/28/2022 Do you belong to any clubs o r organizations such as mandaen groups, unions, fraternal or athletic groups, or [...] Answer Date Recorded PHQ-2 score 2 11/29/2023 [facility] [place] of Occupat ional Health - Occupational Stress [...] living in a fpc (including now)? No 12/02/2023 Area Deprivation Index Answer Date Nayan rded National Score (1-100), lower number is lower ri sk 64 06/17/2022 State Score (1-10), lower number is lower risk 4 06/17/2022 Data from: https://www.neighborhoodatlas.medicine.[facility].edu/. Last address used for calculation [id number] [place] [address] [address] 06/17/2022 Education Answer Date Recorded What is the highest level of school you have completed or the highest degree you have received? Master's degree (e.g., MA, MS, Birgit, MEd, DIVERSIFIED CROPS FARMER, IVANIA) 10/15/2019 Comments No Sex and Gender [...] 09/18/2024 12:30 PM EDT Infusion Center Hematology/Oncology [address] [place] [address] [place] [address] Hodges dressing and cap change;Labs as needed per patient 09/22/2024 12:30 PM EDT Office Visit Gastroenterology [address] [address] Planning Engineer, Hpn [address] [place] [address] HPN / PAGE [id number] 09/22/2024 1:00 PM EDT Office Visit Gastroenterology [address] [place] [id number] Georgina Barkley MD [facility] [address] [address] HPN / PAGE [id number] 09/25/2024 9:00 AM EDT Infusion Center Hematology/Oncology [address] [place] [address] [place] [address] Hodges dressing and cap change;Labs as needed per patient 09/29/2024 10:15 AM EDT Appointment [facility] Endoscopy - ENDO [address] [place] [id number] [place] [address] [place] [id number] EGD 10/02/2024 9:00 AM EDT Infusion Center Hematology/Oncology [address] [place] [address] [place] [address] Hodges dressing and cap change;Labs as needed per patient 10/09/2024 9:00 AM EDT Infusion Center Hematology/Oncology [address] [place] [address] [place] [address] Hodges dressing and cap change;Labs as needed per patient documented as of this encounter Goals Goal Patient Goal Type Associated Problems Recent Progress Patient-Stated? Author Blood Pressure < 140/90 Blood Pressure 112/76( 025 8:48 AM EDT) No Hannah Devlin MD documented as of this encounter Visit Diagnoses Not on filedocumented in this encounter Care Teams Photo Tech Relationship Specialty Start Date End Date Thomas Alas MD [address] [place] [address] PCP - General Family Medicine 07/30/23 Antelmo Davey MD [address] [place] [address] 09/25/19 [place] [address] [place] [address] Consulting General Surgery 09/25/19 Shanna June CNP [address] [place] [address] Referring Family Medicine 10/19/19 Tj Najera PA [address] [address] Referring Family Medicine 05/13/22 Georgina Barkley MD [address] [place] [address] Home Parenteral Nutrition Provider Gastroenterology 10/14/23 documented as of this encounter
--- OUTSIDE RECORDS SUMMARY | 2024-09-15 16:40 | XMS_ITS | Encounter Summary ---
Author Organization [facility] Address [address] [place] [address] Care Team Providers Care Senior Electronics Engineer Name Role Phone Antelmo Davey MD Unavailable Deacon Valladares MD Unavailable Shanna June CNP Unavailable [phone] Shanna June CNP Primary Care Provider [phone] Rachel Foley MD Primary Care Provider [phone] Tj Najera Unavailable [phone] Anna Mendez APRN.[facility] Primary Care Provider Thomas Alas MD Primary Care Provider [phone] Georgina Barkley MD Unavailable [phone] Source Comments In the event this information is protected by the Federal Confidentiality of Alcohol and Drug AbusePatient Records regulations: The Federal rules restrict any use of the information to criminally investigate or prosecute any alcohol or drug abuse patient.[facility] Encounter Details Date Type Department Care Team (Late st Contact Info) Description 04/30/2020 Patient Msg Gastroenterology [address] [address] Kasie Avalos MD [address] [place] [address] Gastric emptying study Social History Tobacco Use Types Packs/Day [...] 10/15/2019 PHQ-2 Answer Date Recorded PHQ-2 score 1 04/15/2020 Hunger Vital Sign Answer Date Recorded Within [...] N ot on file 01/21/2020 Data from: https://www.neighborhoodatlas.medicine.[facility].edu/. Last address used for calculation Not on file 01/21/2020 Education Answer Date Recorded What is the highest level of school you have completed or the highest degree you have received? Master's degree (e.g., MA, MS, Birgit, MEd, ATTENDANT COIN OPERATED LAUNDRY, IVANIA) 10/15/2019 Comments No Sex and Gender [...] have Coronavirus / COVID-19? No / Unsure 04/29/2020 9:50 AM EDT documented as of this encounter [...] 12:30 PM EDT Infusion Center Hematology/Oncology [address] [place] [address] [place] [address] Carroll dressing and cap change;Labs as needed per patient 09/22/2024 12:30 PM EDT Office Visit Gastroenterology [address] [address] Loom Operator, Hpn [address] [place] [address] HPN / PAGE [id number] 09/22/2024 1:00 PM EDT Office Visit Gastroenterology [address] [place] [id number] Georgina Barkley MD [facility] [address] [place] [id number] HPN / PAGE [phone] 09/25/2024 9:00 AM EDT Infusion Center Hematology/Oncology [address] [place] [address] [place] [address] Hodges dressing and cap change;Labs as needed per patient 09/29/2024 10:15 AM EDT Appointment [facility] Endoscopy - ENDO [address] [place] [address] [place] [address] [place] [address] EGD 10/02/2024 9:00 AM EDT Infusion Center Hematology/Oncology [address] [place] [address] [place] [address] Hodges dressing and cap change;Labs as needed per patient 10/09/2024 9:00 AM EDT Infusion Center Hematology/Oncology [address] [place] [address] [place] [address] Hodges dressing and cap change;Labs as needed per patient documented as of this encounter Visit Diagnoses Not on filedocumented in this encounter Additional Health Concerns Infection Onset Date Last Indicated Resolved Time COVID-19 Rule-Out 12/21/2020 12/21/2020 12/21/2020 11:01 PM EDT COVID-19 Rule-Out 12/21/2020 12/21/2020 12/25/2020 9:09 PM EST COVID-19 Rule-Out 01/29/2022 01/29/2022 01/29/2022 6:59 PM EST COVID-19 Rule-Out 06/06/2023 06/06/2023 06/06/2023 6:19 PM EDT documented as of this encounter Care Teams Senior Electronics Engineer Relationship Specialty Start Date End Date Shanna June CNP [address] [place] [address] PCP - General Family Medicine 01/31/20 01/18/22 Rachel Foley MD [address] [place] [address] PCP - General Family Medicine 01/19/22 06/15/22 Anna Mendez, PROPOSAL REVIEW ANALYST.CARGO SERVICES COORDINATOR [address] [address] PCP - General 06/16/22 07/29/23 Thomas Alas MD [address] [place] [address] PCP - General Family Medicine 07/30/23 Antelmo Davey MD [address] [place] [address] 09/25/19 [place] [address] [place] [address] Consulting General Surgery 09/25/19 Shanna June, BETH [address] [place] [address] Referring Family Medicine 10/19/19 Tj Najera PA [address] [place] [address] Referring Family Medicine 05/13/22 Georgina Barkley MD [address] [place] [address] Home Parenteral Nutrition Provider Gastroenterology 10/14/23 documented as of this encounter
--- OUTSIDE RECORDS SUMMARY | 2024-09-15 16:40 | XMS_ITS | Encounter Summary ---
Author Organization [facility] [employer] Address [address] [place] [address] Care Team Providers Care Biofuels Processing Technician Name Role Phone Thomas Alas MD Primary Care Provider [phone] Reason for Visit * Reason Onset Date Comments Appointment 04/18/2024 Encounter Details Date Type Department Care Team (Late st Contact Info) Description 04/18/2024 Telephone Central Scheduling [address] [place] [phone] Joanne Shi Appointment Social History Tobacco [...] until 2025. The patient also follows with [facility] GI. I would recommend maintaining follow [...] Please advise Preferred call back time: Anytime [phone] Will warm connect patient to nursing line [...] on filedocumented in this encounter Care Teams Biofuels Processing Technician Relationship Specialty Start Date End Date Thomas Alas MD PCP - General 12/30/23 documented as of this encounter
--- OUTSIDE RECORDS SUMMARY | 2024-09-15 16:40 | XMS_ITS | Encounter Summary ---
Author Organization [facility] Address [address] [place] [address] Care Team Providers Care Banquet Line Cook Name Role Phone Antelmo Davey MD Unavailable Deacon Valladares MD Unavailable [phone] Shanna June [facility] Unavailable [phone] Tj Najera Unavailable [phone] Anna Mendez APRN.[facility] Primary Care Provider Thomas Alas MD Primary Care Provider [phone] Georgina Barkley MD Unavailable [phone] Source Comments In the event this information is protected by the Federal Confidentiality of Alcohol and Drug AbusePatient Records regulations: The Federal rules restrict any use of the information to criminally investigate or prosecute any alcohol or drug abuse patient.[facility] Encounter Details Date Type Department Care Team (Late st Contact Info) Description 12/21/2022 Get Medical Advice BMI [facility] [place] [address] [facility] [place] [place], [place] [id number] [place] [address] [place] [address] Picc Line Social History Tobacco Use Types Packs/Day Years [...] any clubs o r organizations such as protestant groups, unions, fraternal or athletic groups, or [...] PHQ-2 Answer Date Recorded PHQ-2 score 2 11/12/2022 [facility] [place] of Occupat ional Health - Occupational Stress [...] you got the money to buy more. Sometimes true Within the past 12 months, t he food you bought just didn't last and you didn't have money to get more. Sometimes true PRAPARE - Transportation Answer Date Re corded In the past 12 months, has l ack of transportation kept you from medical appointments or from getting medications? No 11/16 In the past 12 months, has l ack of transportation kept you from meetings, work, or from getting things needed for daily living? No 12/06/2022 Housing Stability Vital Sign Answer Eugenio e Recorded In the last 12 months, was t here a time when you were not able to pay the mortgage or rent on time? Yes 12/06/2022 In the last 12 months, how many places have you lived? 1 12/06/2022 In the last 12 months, was t here a time when you did not have a steady place to sleep or slept in a skilled nursing (including now)? No 12/06/2022 Area Deprivation Index Answer Date Nayan rded National Score (1-100), lower number is lower ri sk 64 06/17/2022 State Score (1-10), lower number is lower risk 4 06/17/2022 Data from: https://www.neighborhoodatlas.medicine.[facility].edu/. Last address used for calculation [id number] [place] [address] [address] 06/17/2022 Education Answer Date Recorded What is the highest level of school you have completed or the highest degree you have received? Master's degree (e.g., MA, MS, Birgit, MEd, SENIOR AUDIT MANAGER, IVANIA) 10/15/2019 Comments No Sex and [...] hearing? Answer Date of Assessment Author No 12/09/2022 3:49 PM EDT Sharron Abdalla RN * Are you blind or do you have serious difficulty seeing, even when wearing glasses? Answer Date of Assessment Author No 12/09/2022 3:49 PM EDT Sharron Abdalla RN * Do you have serious difficulty walking or climbing stairs? Answer Date of Assessment Author No 12/09/2022 3:49 PM EDT Sharron Abdalla RN * Do you have difficulty dressing or bathing? Answer Date of Assessment Author No 12/09/2022 3:49 PM EDT Sharron Abdalla RN * Because of a physical, mental, or emotional condition, do you have difficulty doing errands alone such as visiting a doctor's office or shopping? Answer Date of Assessment Author No 12/09/2022 3:49 PM EDT Sharron Abdalla RN documented as of this encounter Mental Status * Because of a physical, mental, or emotional condition, do you have serious difficulty concentrating, remembering, or making decisions? Answer Entry Date Author No 12/09/2022 3:49 PM EDT Sharron Abdalla RN documented in this encounter Plan of Treatment Upcoming Encounters Date Type Department Care Team (Latest Contact Info) Description 09/18/2024 12:30 PM EDT Infusion Center Hematology/Oncology [address] [place] [address] [place] [address] Hodges dressing and cap change;Labs as needed per patient 09/22/2024 12:30 PM EDT Office Visit Gastroenterology 2048 [place] [address] Manager Cancer, Hpn [address] [place] [id number] HPN / PAGE [id number] 09/22/2024 1:00 PM EDT Office Visit Gastroenterology 2048 [place] [address] Georgina Barkley MD [facility] 2048 [place] [address] HPN / PAGE [id number] 09/25/2024 9:00 AM EDT Infusion Center Hematology/Oncology [address] [place] [address] [place] [address] Hodges dressing and cap change;Labs as needed per patient 09/29/2024 10:15 AM EDT Appointment [facility] Endoscopy - ENDO [address] [place] [address] [place] [address] [place] [address] EGD 10/02/2024 9:00 AM EDT Infusion Center Hematology/Oncology [address] [place] [address] [place] [address] Hodges dressing and cap change;Labs as needed per patient 10/09/2024 9:00 AM EDT Infusion Center Hematology/Oncology [address] [place] [address] [place] [address] Hodges dressing and cap change;Labs as needed per patient documented as of this encounter Visit Diagnoses Not on filedocumented in this encounter Additional Health Concerns Infection Onset Date Last Indicated Resolved Time COVID-19 Rule-Out 06/06/2023 06/06/2023 06/06/2023 6:19 PM EDT documented as of this encounter Care Teams Banquet Line Cook Relationship Specialty Start Date End Date Anna Mendez APRN.CLAIMS DIRECTOR [address] [address] PCP - General 06/16/22 07/29/23 Thomas Alas MD [address] [place] [address] PCP - General Family Medicine 07/30/23 Antelmo Davey MD [address] [place] [address] 09/25/19 [place] [address] [facility] [place] [address] Consulting General Surgery 09/25/19 Shanna June CNP [address] [place] [address] Referring Family Medicine 10/19/19 Tj Najera PA [address] [facility] [address] [place] [address] Referring Family Medicine 05/13/22 Georgina Barkley MD [address] [place] [address] Home Parenteral Nutrition Provider Gastroenterology 10/14/23 documented as of this encounter
--- OUTSIDE RECORDS SUMMARY | 2024-09-15 16:40 | XMS_ITS | Encounter Summary ---
Author Organization [facility] Address [address] [place] [address] Care Team Providers Care Tray Line Supervisor Name Role Phone Antelmo Davey MD Unavailable [phone] Deacon Valladares MD Unavailable Shanna June CNP Unavailable [phone] Tj Najera Unavailable [phone] Thomas Alas MD Primary Care Provider [phone] Georgina Barkley MD Unavailable [phone] Source Comments In the event this information is protected by the Federal Confidentiality of Alcohol and Drug AbusePatient Records regulations: The Federal rules restrict any use of the information to criminally investigate or prosecute any alcohol or drug abuse patient.[facility] Encounter Details Date Type Department Care Team (Late st Contact Info) Description 12/22/2023 Patient Msg Gastroenterology [address] [address] Georgina Barkley MD [facility] [address] [address] Appointment Request Social History Tobacco Use Types Packs/Day Years Used Date Smoking Tobacco: Never Smokeless Tobacco: Never Alcohol Use Standard Drinks/Week Comments Not Currently 0 (1 standard drink = 0.6 oz pur e alcohol) [facility] Utilities Answer Date Recorded In the past [...] Answer Date Recorded PHQ-2 score 2 11/29/2023 [facility] [place] of Occupat ional Health - Occupational Stress [...] any time in the past 12 m [facility], were you homeless or living in a halfway (including now)? No 12/02/2023 Area Deprivation Index Answer Date Nayan rded National Score (1-100), lower number is lower ri sk 64 06/17/2022 State Score (1-10), lower number is lower risk 4 06/17/2022 Data from: https://www.neighborhoodatlas.medicine.[facility].edu/. Last address used for calculation [id number] [place] [address] [address] 06/17/2022 Education Answer Date Recorded What is the highest level of school you have completed or the highest degree you have received? Master's degree (e.g., MA, MS, Birgit, MEd, SHEETER OPERATOR, IVANIA) 10/15/2019 Comments No Sex and [...] 12:30 PM EDT Infusion Center Hematology/Oncology [address] [place] [address] [place] [address] Hodges dressing and cap change;Labs as needed per patient 09/22/2024 12:30 PM EDT Office Visit Gastroenterology [address] [address] Orthodontic Band Maker, Hpn [address] [place] [address] HPN / PAGE [id number] 09/22/2024 1:00 PM EDT Office Visit Gastroenterology [address] [place] [id number] Georgina Barkley MD [facility] [address] [address] HPN / PAGE [id number] 09/25/2024 9:00 AM EDT Infusion Center Hematology/Oncology [address] [place] [address] [place] [address] Hodges dressing and cap change;Labs as needed per patient 09/29/2024 10:15 AM EDT Appointment [facility] Endoscopy - ENDO [address] [place] [id number] [place] [address] [place] [id number] EGD 10/02/2024 9:00 AM EDT Infusion Center Hematology/Oncology [address] [place] [address] [place] [address] Hodges dressing and cap change;Labs as needed per patient 10/09/2024 9:00 AM EDT Infusion Center Hematology/Oncology [address] [place] [address] [place] [address] Hodges dressing and cap change;Labs as needed per patient documented as of this encounter Goals Goal Patient Goal Type Associated Problems Recent Progress Patient-Stated? Author Blood Pressure < 140/90 Blood Pressure 112/76( 025 8:48 AM EDT) No Hannah Devlin MD documented as of this encounter Visit Diagnoses Not on filedocumented in this encounter Care Teams Tray Line Supervisor Relationship Specialty Start Date End Date Thomas Alas MD [address] [place] [address] PCP - General Family Medicine 07/30/23 Antelmo Davey MD [address] [place] [address] 09/25/19 [place] [address] [place] [address] Consulting General Surgery 09/25/19 Shanna June CNP [address] [place] [address] Referring Family Medicine 10/19/19 Tj Najera PA [address] [address] Referring Family Medicine 05/13/22 Georgina Barkley MD [address] [place] [address] Home Parenteral Nutrition Provider Gastroenterology 10/14/23 documented as of this encounter
--- OUTSIDE RECORDS SUMMARY | 2024-09-15 16:40 | XMS_ITS | Encounter Summary ---
Author Organization [facility] Address [address] [place] [address] Care Team Providers Care Knot Tying Operator Name Role Phone Antelmo Davey MD Unavailable [phone] Deacon Valladares MD Unavailable Shanna June CNP Unavailable [phone] Tj Najera Unavailable [phone] Thomas Alas MD Primary Care Provider [phone] Georgina Barkley MD Unavailable [phone] Source Comments In the event this information is protected by the Federal Confidentiality of Alcohol and Drug AbusePatient Records regulations: The Federal rules restrict any use of the information to criminally investigate or prosecute any alcohol or drug abuse patient.[facility] Encounter Details Date Type Department Care Team (Late st Contact Info) Description 01/20/2024 Get Medical Advice Gastroenterology [address] [address] Georgina Barkley MD [facility] [address] [address] Symptoms Social History Tobacco Use Types Packs/Day Years Used Date Smoking Tobacco: Never Smokeless Tobacco: Never Alcohol Use Standard Drinks/Week Comments Not Currently 0 (1 standard drink = 0.6 oz pur e alcohol) [facility] Utilities Answer Date Recorded In [...] any clubs o r organizations such as congregational groups, unions, fraternal or athletic groups, or [...] Answer Date Recorded PHQ-2 score 3 01/14/2024 [facility] [place] [facility] Occupat ional Health - Occupational Stress [...] [facility].[email or web address]/. Last address used for calculation [id number] [place] [address] [address] 06/17/2022 Education Answer Date Recorded What is the highest level of school you have completed or the highest degree you have received? Master's degree (e.g., MA, MS, Birgit, MEd, TRAFFIC SIGN ERECTION SUPERVISOR, IVANIA) 10/15/2019 Comments No Sex and [...] Entry Date Author No 12/03/2023 1:48 PM EDGeorgina Weeks RN documented in this encounter Miscellaneous Notes * Telephone Encounter - Yash Mares, RD - 01/20/2024 11:40 AM EST Call to patient. Patient reports lower right sided abdominal pain (rated a 7 on scale of 1-10 ), typically her abdominal pain is on the left side and is not as bad. Reports she was vomiting all nightlong. Patient reports it has been 2 days without any stool output and it has been 2 days since she ran tube feeds. Her tube appears to be blocked (cannot run TF, but water bolus flushes appear to infuse okay). Also reports painful and tender around the site. Patient denies fevers or issues with hercentral line/ PN. She is infusing an additional liter of PRN fluids at this time. Recs: - Patient to report to local ED. Discussed if they feel unable to handle her care [facility] (she is currently unable to drive to main campus herself). - Patient to update team if she is discharged from ED without transfer Yash Mares RD documented in this encounter Plan of Treatment Upcoming Encounters Date Type Department Care Team (Latest Contact Info) Description 09/18/2024 12:30 PM EDT Infusion Center Hematology/Oncology [address] [place] [address] [place] [address] Hodges dressing and cap change;Labs as needed per patient 09/22/2024 12:30 PM EDT Office Visit Gastroenterology [address] [place] [id number] Bricklayer Paving Brick, Hpn [address] [place] [address] HPN / PAGE [id number] 09/22/2024 1:00 PM EDT Office Visit Gastroenterology [address] [place] [id number] Georgina Barkley MD [facility] [address] [place] [address] HPN / PAGE [id number] 09/25/2024 9:00 AM EDT Infusion Center Hematology/Oncology [address] [place] [address] [place] [address] Hodges dressing and cap change;Labs as needed per patient 09/29/2024 10:15 AM EDT Appointment [facility] Endoscopy - ENDO [address] [place], [place] [id number] [place] [address] [place] [address] EGD 10/02/2024 9:00 AM EDT Infusion Center Hematology/Oncology [address] [place] [address] [place] [address] Hodges dressing and cap change;Labs as needed per patient 10/09/2024 9:00 AM EDT [facility] Hematology/Oncology [address] [facility] [place] [address] Hodges dressing and cap change;Labs as needed per patient documented as of this encounter Goals Goal Patient Goal Type Associated Problems Recent Progress Patient-Stated? Author Blood Pressure < 140/90 Blood Pressure 112/76( 025 8:48 AM EDT) No Hannah Devlin MD documented as of this encounter Visit Diagnoses Diagnosis Diarrhea due to malabsorption [K90.9, R19.7]- Primary Personal history of other diseases of digestive system documented in this encounter Care Teams Knot Tying Operator Relationship Specialty Start Date End Date Thomas Alas MD [address] [place] [address] PCP - General Family Medicine 07/30/23 Antelmo Davey MD [address] [place] [address] 09/25/19 [place] [address] [place] [address] Consulting General Surgery 09/25/19 Shanna June CNP [address] [place] [address] Referring Family Medicine 10/19/19 Tj Najera PA [address] [place] [address] Referring Family Medicine 05/13/22 Georgina Barkley MD [address] [place] [address] Home Parenteral Nutrition Provider Gastroenterology 10/14/23 documented as of this encounter
--- OUTSIDE RECORDS SUMMARY | 2024-09-15 16:40 | XMS_ITS | Encounter Summary ---
Author Organization [facility] Address [address] [place] [address] Care Team Providers Care Software Engineer Advisor Name Role Phone Antelmo Davey MD Unavailable [phone] Deacon Valladares MD Unavailable [phone] Shanna June CNP Unavailable [phone] Shanna June CNP Primary Care Provider [phone] Rachel Foley MD Primary Care Provider [phone] Tj Najera Unavailable [phone] Anna Mendez APRN.[facility] Primary Care Provider Thomas Alas MD Primary Care Provider +-4 Georgina Barkley MD Unavailable [phone] Source Comments In the event this information is protected by the Federal Confidentiality of Alcohol and Drug AbusePatient Records regulations: The Federal rules restrict any use of the information to criminally investigate or prosecute any alcohol or drug abuse patient.[facility] Encounter Details Date Type Department Care Team (Late st Contact Info) Description 04/22/2020 Get Medical Advice Gastroenterology [address] [address] Kasie Avalos MD [address] [place] [address] RE: Visit Follow Up Question Social History [...] N ot on file 01/21/2020 Data from: https://www.neighborhoodatlas.medicine.[facility].edu/. Last address used for calculation Not on file 01/21/2020 Education Answer Date Recorded What is the highest level of school you have completed or the highest degree you have received? Master's degree (e.g., MA, MS, Birgit, MEd, DRUM STENCILER, IVANIA) 10/15/2019 Comments No Sex and Gender [...] have Coronavirus / COVID-19? No / Unsure 04/25/2020 3:09 PM EST documented as of this encounter [...] 09/18/2024 12:30 PM EDT Infusion Center Hematology/Oncology [address] [place] [address] [place] [address] Carroll dressing and cap change;Labs as needed per patient 09/22/2024 12:30 PM EDT Office Visit Gastroenterology [address] [address] Audiology Assistant, Hpn [address] [place] [address] HPN / PAGE [id number] 09/22/2024 1:00 PM EDT Office Visit Gastroenterology [address] [place] [phone] Georgina Barkley MD [facility] [address] [place] [id number] HPN / PAGE [id number] 09/25/2024 9:00 AM EDT Infusion Center Hematology/Oncology [address] [place] [address] [place] [address] Hodges dressing and cap change;Labs as needed per patient 09/29/2024 10:15 AM EDT Appointment [facility] Endoscopy - ENDO [address] [place] [address] [place] [address] [place] [address] EGD 10/02/2024 9:00 AM EDT Infusion Center Hematology/Oncology [address] [place] [address] [place] [address] Hodges dressing and cap change;Labs as needed per patient 10/09/2024 9:00 AM EDT Infusion Center Hematology/Oncology [address] [place] [address] [place] [address] Hodges dressing and cap change;Labs as needed [...] documented as of this encounter Care Teams Software Engineer Advisor Relationship Specialty Start Date End Date Shanna June CNP [address] [place] [address] PCP - General Family Medicine 01/31/20 01/18/22 Rachel Foley MD [address] [place] [address] PCP - General Family Medicine 01/19/22 06/15/22 Anna Mendez APRN.GRANITE BLOCK PAVER [address] [address] PCP - General 06/16/22 07/29/23 Thomas Alas MD [address] [place] [address] PCP - General Family Medicine 07/30/23 Antelmo Davey MD 521 [place] [address] 09/25/19 [place] [address] [place] [address] Consulting General Surgery 09/25/19 Shanna June, BETH [address] [place] [address] Referring Family Medicine 10/19/19 Tj Najera PA [address] [address] Referring Family Medicine 05/13/22 Georgina Barkley MD [address] [place] [address] Home Parenteral Nutrition Provider Gastroenterology 10/14/23 documented as of this encounter
--- OUTSIDE RECORDS SUMMARY | 2024-09-15 16:40 | XMS_ITS | Encounter Summary ---
Author Organization [facility] Address [address] [place] [address] Care Team Providers Care Sweatband Perforator Name Role Phone Antelmo Davey MD Unavailable Deacon Valladares MD Unavailable [phone] Shanna June CNP Unavailable [phone] Shanna June CNP Primary Care Provider [phone] Rachel Foley MD Primary Care Provider [phone] Tj Najera Unavailable [phone] Anna Mendez APRN.[facility] Primary Care Provider Thomas Alas MD Primary Care Provider +-4 Georgina Barkley MD Unavailable [phone] Source Comments In the event this information is protected by the Federal Confidentiality of Alcohol and Drug AbusePatient Records regulations: The Federal rules restrict any use of the information to criminally investigate or prosecute any alcohol or drug abuse patient.[facility] Encounter Details Date Type Department Care Team (Late st Contact Info) Description 06/03/2020 Get Medical Advice General Surgery [address] [place] [address] [place] [address] [place] [id number] RE: Upcoming Appointment Question Social History Tobacco [...] N ot on file 01/21/2020 Data from: https://www.neighborhoodatlas.medicine.[facility].edu/. Last address used for calculation Not on file 01/21/2020 Education Answer Date Recorded What is the highest level of school you have completed or the highest degree you have received? Master's degree (e.g., MA, MS, Birgit, MEd, RADIAL DRILL OPERATOR FOR PLASTIC, IVANIA) 10/15/2019 Comments No Sex and Gender [...] have Coronavirus / COVID-19? Unable to assess 06/03/2020 1:21 PM EDT documented as of this encounter [...] 09/18/2024 12:30 PM EDT Infusion Center Hematology/Oncology [address] [place] [address] [place] [address] Carroll dressing and cap change;Labs as needed per patient 09/22/2024 12:30 PM EDT Office Visit Gastroenterology [address] [address] Merit System Director, Hpn [address] [place] [address] HPN / PAGE [id number] 09/22/2024 1:00 PM EDT Office Visit Gastroenterology [address] [place] [phone] Georgina Barkley MD [facility] [address] [place] [id number] HPN / PAGE [id number] 09/25/2024 9:00 AM EDT Infusion Center Hematology/Oncology [address] [place] [address] [place] [address] Hodges dressing and cap change;Labs as needed per patient 09/29/2024 10:15 AM EDT Appointment [facility] Endoscopy - ENDO [address] [place] [address] [place] [address] [place] [address] EGD 10/02/2024 9:00 AM EDT Infusion Center Hematology/Oncology [address] [place] [address] [place] [address] Hodges dressing and cap change;Labs as needed per patient 10/09/2024 9:00 AM EDT Infusion Center Hematology/Oncology [address] [place] [address] [place] [address] Hodges dressing and cap change;Labs as needed [...] documented as of this encounter Care Teams Sweatband Perforator Relationship Specialty Start Date End Date Shanna June CNP [address] [place] [address] PCP - General Family Medicine 01/31/20 01/18/22 Rachel Foley MD 521 [place] [address] PCP - General Family Medicine 01/19/22 06/15/22 Anna Mendez APRN.TOOLS PROGRAMMER [address] [address] PCP - General 06/16/22 07/29/23 Thomas Alas MD [address] [place] [address] PCP - General Family Medicine 07/30/23 Antelmo Davey MD [address] [place] [address] 09/25/19 [place] [address] [place] [address] Consulting General Surgery 09/25/19 Shanna June, BETH [address] [place] [address] Referring Family Medicine 10/19/19 Tj Najera PA [address] [address] Referring Family Medicine 05/13/22 Georgina Barkley MD [address] [place] [address] Home Parenteral Nutrition Provider Gastroenterology 10/14/23 documented as of this encounter
--- OUTSIDE RECORDS SUMMARY | 2024-09-15 16:40 | XMS_ITS | Encounter Summary ---
Author Organization [facility] Address [address] [place] [address] Care Team Providers Care Wax Ball Molder Name Role Phone Antelmo Davey MD Unavailable Deacon Valladares MD Unavailable Shanna June CNP Unavailable [phone] Shanna June CNP Primary Care Provider [phone] Rachel Foley MD Primary Care Provider [phone] Tj Najera Unavailable [phone] Anna Mendez APRN.[facility] Primary Care Provider Thomas Alas MD Primary Care Provider +-4 Georgina Barkley MD Unavailable [phone] Source Comments In the event this information is protected by the Federal Confidentiality of Alcohol and Drug AbusePatient Records regulations: The Federal rules restrict any use of the information to criminally investigate or prosecute any alcohol or drug abuse patient.[facility] Encounter Details Date Type Department Care Team (Late st Contact Info) Description 05/06/2020 Get Medical Advice General Surgery [address] [place] [address] [place] [address] [place] [address] RE: Visit Follow Up Question Social History [...] on file 01/21/2020 Data from: https://www.neighborhoodatlas.medicine.[facility].edu/. Last address used for calculation Not on file 01/21/2020 Education Answer Date Recorded What is the highest level of school you have completed or the highest degree you have received? Master's degree (e.g., MA, MS, Birgit, MEd, HOTEL OPERATION MANAGER, IVANIA) 10/15/2019 Comments No Sex and [...] have Coronavirus / COVID-19? Unable to assess 05/07/2020 4:45 PM EDT documented as of this encounter Functional Status * Are you deaf or do you have serious difficulty hearing? Answer Date of Assessment Author No 02/08/2020 2:47 PM Ericka Troy RN * Are you blind or do you have serious difficulty seeing, even when wearing glasses? Answer Date of Assessment Author No 02/08/2020 2:47 PM Ercika Troy RN * Do you have serious [...] 09/18/2024 12:30 PM EDT Infusion Center Hematology/Oncology [address] [place] [address] [place] [address] Carroll dressing and cap change;Labs as needed per patient 09/22/2024 12:30 PM EDT Office Visit Gastroenterology [address] [address] Strength And Conditioning Coach, Hpn [address] [place] [address] HPN / PAGE [phone] 09/22/2024 1:00 PM EDT Office Visit Gastroenterology [address] [place] [phone] Georgina Barkley MD [facility] [address] [place] [id number] HPN / PAGE [id number] 09/25/2024 9:00 AM EDT Infusion Center Hematology/Oncology [address] [place] [address] [place] [address] Hodges dressing and cap change;Labs as needed per patient 09/29/2024 10:15 AM EDT Appointment [facility] Endoscopy - ENDO [address] [place] [address] [place] [address] [place] [address] EGD 10/02/2024 9:00 AM EDT Infusion Center Hematology/Oncology [address] [place] [address] [place] [address] Hodges dressing and cap change;Labs as needed per patient 10/09/2024 9:00 AM EDT Infusion Center Hematology/Oncology [address] [place] [address] [place] [address] Hodges dressing and cap change;Labs as needed [...] documented as of this encounter Care Teams Wax Ball Molder Relationship Specialty Start Date End Date Shanna Jnue CNP [address] [place] [address] PCP - General Family Medicine 01/31/20 01/18/22 Rachel Foley MD [address] [place] [address] PCP - General Family Medicine 01/19/22 06/15/22 Anna Mendez APRN.FLOOR COVERER [address] [address] PCP - General 06/16/22 07/29/23 Thomas Alas MD [address] [place] [address] PCP - General Family Medicine 07/30/23 Antelmo Davey MD 521 [place] [address] 09/25/19 [place] [address] [place] [address] Consulting General Surgery 09/25/19 Shanna June, BETH [address] [place] [address] Referring Family Medicine 10/19/19 Tj Najera PA [address] [address] Referring Family Medicine 05/13/22 Georgina Barkley MD [address] [place] [address] Home Parenteral Nutrition Provider Gastroenterology 10/14/23 documented as of this encounter
--- OUTSIDE RECORDS SUMMARY | 2024-09-15 16:40 | XMS_ITS | Encounter Summary ---
Author Organization [facility] Address [address] [place] [address] Care Team Providers Care Projection Printer Name Role Phone Antelmo Davey MD Unavailable Deacon Valladares MD Unavailable Shanna June CNP Unavailable [phone] Shanna June CNP Primary Care Provider [phone] Rachel Foley MD Primary Care Provider [phone] Tj Najera Unavailable [phone] Anna Mendez APRN.[facility] Primary Care Provider Thomas Alas MD Primary Care Provider +-4 Georgina Barkley MD Unavailable [phone] Source Comments In the event this information is protected by the Federal Confidentiality of Alcohol and Drug AbusePatient Records regulations: The Federal rules restrict any use of the information to criminally investigate or prosecute any alcohol or drug abuse patient.[facility] Encounter Details Date Type Department Care Team (Late st Contact Info) Description 05/09/2020 Get Medical Advice Gastroenterology [address] [address] Kasie Avalos MD [address] [place] [address] RE: Visit Follow Up Question Social History [...] on file 01/21/2020 Data from: https://www.neighborhoodatlas.medicine.[facility].edu/. Last address used for calculation Not on file 01/21/2020 Education Answer Date Recorded What is the highest level of school you have completed or the highest degree you have received? Master's degree (e.g., MA, MS, Birgit, MEd, VIDEO PRODUCER, IVANIA) 10/15/2019 Comments No Sex and Gender [...] 09/18/2024 12:30 PM EDT Infusion Center Hematology/Oncology [address] [place] [address] [place] [address] Carroll dressing and cap change;Labs as needed per patient 09/22/2024 12:30 PM EDT Office Visit Gastroenterology [address] [address] Utilities And Maintenance Supervisor, Hpn [address] [place] [address] HPN / PAGE [id number] 09/22/2024 1:00 PM EDT Office Visit Gastroenterology [address] [place] [id number] Georgina Barkley MD [facility] [address] [place] [address] [id number] HPN / PAGE [id number] 09/25/2024 9:00 AM EDT Infusion Center Hematology/Oncology [address] [place] [address] [place] [address] Hodges dressing and cap change;Labs as needed per patient 09/29/2024 10:15 AM EDT Appointment [facility] Endoscopy - ENDO [address] [place] [address] [place] [address] [place] [address] EGD 10/02/2024 9:00 AM EDT Infusion Center Hematology/Oncology [address] [place] [address] [place] [address] Hodges dressing and cap change;Labs as needed per patient 10/09/2024 9:00 AM EDT Infusion Center Hematology/Oncology [address] [place] [address] [place] [address] Hodges dressing and cap change;Labs as needed [...] documented as of this encounter Care Teams Projection Printer Relationship Specialty Start Date End Date Shanna June CNP [address] [place] [address] PCP - General Family Medicine 01/31/20 01/18/22 Rachel Foley MD 521 [place] [address] PCP - General Family Medicine 01/19/22 06/15/22 Anna Mendez APRN.NUTRITION CLUB AMBASSADOR [address] [address] PCP - General 06/16/22 07/29/23 Thomas Alas MD [address] [place] [address] PCP - General Family Medicine 07/30/23 Antelmo Davey MD 521 [place] [address] 09/25/19 [place] [address] [place] [address] Consulting General Surgery 09/25/19 Shanna June, BETH [address] [place] [address] Referring Family Medicine 10/19/19 Tj Najera PA [address] [address] Referring Family Medicine 05/13/22 Georgina Barkley MD [address] [place] [address] Home Parenteral Nutrition Provider Gastroenterology 10/14/23 documented as of this encounter
--- OUTSIDE RECORDS SUMMARY | 2024-09-15 16:40 | XMS_ITS | Encounter Summary ---
Author Organization [facility] Address [address] [place] [address] Care Team Providers Care Community Service Officer Name Role Phone Antelmo Davey MD Unavailable Deacon Valladares MD Unavailable [phone] Shanna June [facility] Unavailable [phone] Tj Najera Unavailable [phone] Anna Mendez APRN.[facility] Primary Care Provider Thomas Alas MD Primary Care Provider [phone] Georgina Barkley MD Unavailable [phone] Source Comments In the event this information is protected by the Federal Confidentiality of Alcohol and Drug AbusePatient Records regulations: The Federal rules restrict any use of the information to criminally investigate or prosecute any alcohol or drug abuse patient.[facility] Encounter Details Date Type Department Care Team (Late st Contact Info) Description 12/28/2022 Get Medical Advice BMI [facility] REJ [address] [place], [place] [id number] [place] [address] [place] [address] Return to work Social History Tobacco Use Types Packs/Day Years [...] How often do you attend chur or anabaptism services? 1 to 4 times per year [...] Answer Date Recorded PHQ-2 score 2 11/12/2022 [facility] [place] of Occupat ional Health - Occupational Stress [...] slept in a halfway (including now)? No 12/06/2022 Area Deprivation Index Answer Date Nayan rded National Score (1-100), lower number is lower ri sk 64 06/17/2022 State Score (1-10), lower number is lower risk 4 06/17/2022 Data from: https://www.neighborhoodatlas.medicine.[facility].edu/. Last address used for calculation [id number] [place] [address] RD 46 06/17/2022 Education Answer Date Recorded What is the highest level of school you have completed or the highest degree you have received? Master's degree (e.g., MA, MS, Birgit, MEd, SECURITY ASSESSOR, IVANIA) 10/15/2019 Comments No Sex and Gender [...] 12:30 PM EDT Infusion Center Hematology/Oncology [address] [place] [address] [place] [address] Hodges dressing and cap change;Labs as needed per patient 09/22/2024 12:30 PM EDT Office Visit Gastroenterology 2048 [place] [address] Machine Ii Engraver, Hpn [address] [place] [phone] HPN / PAGE [id number] 09/22/2024 1:00 PM EDT Office Visit Gastroenterology [address] [place] [address] Georgina Barkley MD [facility] 2048 [place] [address] HPN / PAGE [id number] 09/25/2024 9:00 AM EDT Infusion Center Hematology/Oncology [address] [place] [address] [place] [address] Hodges dressing and cap change;Labs as needed per patient 09/29/2024 10:15 AM EDT Appointment [facility] Endoscopy - ENDO [address] [place] [address] [place] [address] [place] [address] EGD 10/02/2024 9:00 AM EDT Infusion Center Hematology/Oncology [address] [place] [address] [place] [address] Hodges dressing and cap change;Labs as needed per patient 10/09/2024 9:00 AM EDT Infusion Center Hematology/Oncology [address] [place] [address] [place] [address] Hodges dressing and cap change;Labs as needed per patient documented as of this encounter Visit Diagnoses Not on filedocumented in this encounter Additional Health Concerns Infection Onset Date Last Indicated Resolved Time COVID-19 Rule-Out 06/06/2023 06/06/2023 06/06/2023 6:19 PM EDT documented as of this encounter Care Teams Community Service Officer Relationship Specialty Start Date End Date Anna Mendez APRN.COMPUTER TECHNICAL SPECIALIST [address] [address] PCP - General 06/16/22 07/29/23 Thomas Alas MD [address] [place] [address] PCP - General Family Medicine 07/30/23 Antelmo Davey MD [address] [place] [address] 09/25/19 [place] [address] [facility] [place] [address] Consulting General Surgery 09/25/19 Shanna June CNP [address] [place] [address] Referring Family Medicine 10/19/19 Tj Najera PA [address] [facility] 150 [place] [address] Referring Family Medicine 05/13/22 Georgina Barkley MD [address] [place] [address] Home Parenteral Nutrition Provider Gastroenterology 10/14/23 documented as of this encounter
--- OUTSIDE RECORDS SUMMARY | 2024-09-15 16:40 | XMS_ITS | Encounter Summary ---
Author Organization [facility] Address [address] [place] [address] Care Team Providers Care Blind Eyeletter Name Role Phone Antelmo Davey MD Unavailable Deacon Valladares MD Unavailable Shanna June [facility] Unavailable [phone] Tj Najera Unavailable [phone] Anna Mendez APRN.[facility] Primary Care Provider Thomas Alas MD Primary Care Provider [phone] Georgina Barkley MD Unavailable [phone] Source Comments In the event this information is protected by the Federal Confidentiality of Alcohol and Drug AbusePatient Records regulations: The Federal rules restrict any use of the information to criminally investigate or prosecute any alcohol or drug abuse patient.[facility] Encounter Details Date Type Department Care Team (Late st Contact Info) Description 12/21/2022 Patient Msg General Surgery [address] [place], [place] [address] [place] [address] [place] [address] Appointment Request Social History Tobacco Use Types [...] How often do you attend chur or denominational services? 1 to 4 times per year 10/28/2022 Do you belong to any clubs o r organizations such as buddhist groups, unions, fraternal or athletic groups, or [...] Answer Date Recorded PHQ-2 score 2 11/12/2022 [facility] [place] of Occupat ional Health - Occupational Stress [...] slept in a assisted (including now)? No 12/06/2022 Area Deprivation Index Answer Date Nayan rded National Score (1-100), lower number is lower ri sk 64 06/17/2022 State Score (1-10), lower number is lower risk 4 06/17/2022 Data from: https://www.neighborhoodatlas.medicine.[facility].edu/. Last address used for calculation [address] [place] [address] RD 46 06/17/2022 Education Answer Date Recorded What is the highest level of school you have completed or the highest degree you have received? Master's degree (e.g., MA, MS, Birgit, MEd, RESPIRATORY THERAPY INSTRUCTOR, IVANIA) 10/15/2019 Comments No Sex and [...] 12:30 PM EDT Infusion Center Hematology/Oncology [address] [place] [address] [place] [address] Hodges dressing and cap change;Labs as needed per patient 09/22/2024 12:30 PM EDT Office Visit Gastroenterology 2048 [place] [address] Director Of Flight Operations, Hpn [address] [place] [phone] HPN / PAGE [id number] 09/22/2024 1:00 PM EDT Office Visit Gastroenterology [address] [place] [address] Georgina Barkley MD [facility] 2048 [place] [address] HPN / PAGE [id number] 09/25/2024 9:00 AM EDT Infusion Center Hematology/Oncology [address] [place] [address] [place] [address] Hodges dressing and cap change;Labs as needed per patient 09/29/2024 10:15 AM EDT Appointment [facility] Endoscopy - ENDO [address] [place] [address] [place] [address] [place] [address] EGD 10/02/2024 9:00 AM EDT Infusion Center Hematology/Oncology [address] [place] [address] [place] [address] Hodges dressing and cap change;Labs as needed per patient 10/09/2024 9:00 AM EDT Infusion Center Hematology/Oncology [address] [place] [address] [place] [address] Hodges dressing and cap change;Labs as needed per patient documented as of this encounter Visit Diagnoses Not on filedocumented in this encounter Additional Health Concerns Infection Onset Date Last Indicated Resolved Time COVID-19 Rule-Out 06/06/2023 06/06/2023 06/06/2023 6:19 PM EDT documented as of this encounter Care Teams Blind Eyeletter Relationship Specialty Start Date End Date Anna Mendez APRN.INSTRUCTOR KNITTING [address] [address] PCP - General 06/16/22 07/29/23 Thomas Alas MD [address] [place] [address] PCP - General Family Medicine 07/30/23 Antelmo Davey MD [address] [place] [address] 09/25/19 [place] [address] [place] [address] Consulting General Surgery 09/25/19 Shanna June CNP [address] [place] [address] Referring Family Medicine 10/19/19 Tj Najera PA [address] [facility] [facility] 150 [place] [address] Referring Family Medicine 05/13/22 Georgina Barkley MD [address] [place] [address] Home Parenteral Nutrition Provider Gastroenterology 10/14/23 documented as of this encounter
--- OUTSIDE RECORDS SUMMARY | 2024-09-15 16:40 | XMS_ITS | Encounter Summary ---
Author Organization [facility] Address [address] [place] [address] Care Team Providers Care Metal Grader Name Role Phone Antelmo Davey MD Unavailable Deacon Valladares MD Unavailable Shanna June [facility] Unavailable [phone] Tj Najera Unavailable [phone] Anna Mednez APRN.[facility] Primary Care Provider Thomas Alas MD Primary Care Provider [phone] Georgina Barkley MD Unavailable [phone] Source Comments In the event this information is protected by the Federal Confidentiality of Alcohol and Drug AbusePatient Records regulations: The Federal rules restrict any use of the information to criminally investigate or prosecute any alcohol or drug abuse patient.[facility] Encounter Details Date Type Department Care Team (Late st Contact Info) Description 12/22/2022 Get Medical Advice BMI [facility] REJ [address] [facility] [place], [place] [id number] [place] [address] [place] [address] G-Tube placement Social History Tobacco Use Types Packs/Day Years [...] How often do you attend chur or latter-day services? 1 to 4 times [...] Answer Date Recorded PHQ-2 score 2 11/12/2022 [facility] [place] of Occupat ional Health - Occupational Stress [...] slept in a custodial (including now)? No 12/06/2022 Area Deprivation Index Answer Date Nayan rded National Score (1-100), lower number is lower ri sk 64 06/17/2022 State Score (1-10), lower number is lower risk 4 06/17/2022 Data from: https://www.neighborhoodatlas.medicine.[facility].edu/. Last address used for calculation [address] [place] [address] RD 46 06/17/2022 Education Answer Date Recorded What is the highest level of school you have completed or the highest degree you have received? Master's degree (e.g., MA, MS, Birgit, MEd, NET SOFTWARE ARCHITECT, IVANIA) 10/15/2019 Comments No Sex and Gender [...] 09/18/2024 12:30 PM EDT Infusion Center Hematology/Oncology [address] [place] [address] [place] [address] Hodges dressing and cap change;Labs as needed per patient 09/22/2024 12:30 PM EDT Office Visit Gastroenterology 20[address] [place] [address] Communications Designer, Hpn [address] [place] [id number] HPN / PAGE [phone] 09/22/2024 1:00 PM EDT Office Visit Gastroenterology 20[address] [place] [address] Georgina Barkley MD [facility] 2048 [place] [address] HPN / PAGE [id number] 09/25/2024 9:00 AM EDT Infusion Center Hematology/Oncology [address] [place] [address] [place] [address] Hodges dressing and cap change;Labs as needed per patient 09/29/2024 10:15 AM EDT Appointment [facility] Endoscopy - ENDO [address] [place] [address] [place] [address] [place] [address] EGD 10/02/2024 9:00 AM EDT Infusion Center Hematology/Oncology [address] [place] [address] [place] [address] Hodges dressing and cap change;Labs as needed per patient 10/09/2024 9:00 AM EDT Infusion Center Hematology/Oncology [address] [place] [address] [place] [address] Hodges dressing and cap change;Labs as needed per patient documented as of this encounter Visit Diagnoses Not on filedocumented in this encounter Additional Health Concerns Infection Onset Date Last Indicated Resolved Time COVID-19 Rule-Out 06/06/2023 06/06/2023 06/06/2023 6:19 PM EDT documented as of this encounter Care Teams Metal Grader Relationship Specialty Start Date End Date Anna Mendez APRN.[facility] [address] [address] PCP - General 06/16/22 07/29/23 Thomas Alas MD [address] [place] [address] PCP - General Family Medicine 07/30/23 Antelmo Davey MD [address] [place] [address] 09/25/19 [place] [address] [facility] [place] [address] Consulting General Surgery 09/25/19 Shanna June CNP [address] [place] [address] Referring Family Medicine 10/19/19 Tj Najera PA [address] [facility] 150 [place] [address] Referring Family Medicine 05/13/22 Georgina Barkley MD [address] [place] [address] Home Parenteral Nutrition Provider Gastroenterology 10/14/23 documented as of this encounter
--- OUTSIDE RECORDS SUMMARY | 2024-09-15 16:40 | XMS_ITS | Encounter Summary ---
Author Organization [facility] Address [address] [place] [address] Care Team Providers Care Strategic Marketing Manager Name Role Phone Antelmo Davey MD Unavailable [phone] Deacon Valladares MD Unavailable Shanna June CNP Unavailable [phone] Shanna June CNP Primary Care Provider [phone] Rachel Foley MD Primary Care Provider [phone] Tj Najera Unavailable [phone] Anna Mendez APRN.[facility] Primary Care Provider Thomas Alas MD Primary Care Provider +[phone] Georgina Barkley MD Unavailable [phone] Source Comments In the event this information is protected by the Federal Confidentiality of Alcohol and Drug AbusePatient Records regulations: The Federal rules restrict any use of the information to criminally investigate or prosecute any alcohol or drug abuse patient.[facility] Encounter Details Date Type Department Care Team (Late st Contact Info) Description 04/25/2020 Get Medical Advice Gastroenterology [address] [address] Kasie Avalos MD [address] [place] [address] RE: Upcoming Appointment Question Social History Tobacco [...] N ot on file 01/21/2020 Data from: https://www.neighborhoodatlas.medicine.[facility].edu/. Last address used for calculation Not on file 01/21/2020 Education Answer Date Recorded What is the highest level of school you have completed or the highest degree you have received? Master's degree (e.g., MA, MS, Birgit, MEd, GASOLINE SERVICE ATTENDANT, IVANIA) 10/15/2019 Comments No Sex and Gender [...] 12:30 PM EDT Infusion Center Hematology/Oncology [address] [place] [address] [place] [address] Carroll dressing and cap change;Labs as needed per patient 09/22/2024 12:30 PM EDT Office Visit Gastroenterology [address] [address] Patient Placement Coordinator, Hpn [address] [place] [address] HPN / PAGE [id number] 09/22/2024 1:00 PM EDT Office Visit Gastroenterology [address] [place] [id number] Georgina Barkley MD [facility] [address] [place] [phone] HPN / PAGE [id number] 09/25/2024 9:00 AM EDT Infusion Center Hematology/Oncology [address] [place] [address] [place] [address] Hodges dressing and cap change;Labs as needed per patient 09/29/2024 10:15 AM EDT Appointment [facility] Endoscopy - ENDO [address] [place] [address] [place] [address] [place] [address] EGD 10/02/2024 9:00 AM EDT Infusion Center Hematology/Oncology [address] [place] [address] [place] [address] Hodges dressing and cap change;Labs as needed per patient 10/09/2024 9:00 AM EDT Infusion Center Hematology/Oncology [address] [place] [address] [place] [address] Hodges dressing and cap change;Labs as needed [...] documented as of this encounter Care Teams Strategic Marketing Manager Relationship Specialty Start Date End Date Shanna June CNP [address] [place] [address] PCP - General Family Medicine 01/31/20 01/18/22 Rachel Foley MD 521 [place] [address] PCP - General Family Medicine 01/19/22 06/15/22 Anna Mendez APRN.DAYCARE MANAGER [address] [address] PCP - General 06/16/22 07/29/23 Thomas Alas MD [address] [place] [address] PCP - General Family Medicine 07/30/23 Antelmo Davey MD [address] [place] [address] 09/25/19 [place] [address] [place] [address] Consulting General Surgery 09/25/19 Shanna June, BETH [address] [place] [address] Referring Family Medicine 10/19/19 Tj Najera PA [address] [address] Referring Family Medicine 05/13/22 Georgina Barkley MD [address] [place] [address] Home Parenteral Nutrition Provider Gastroenterology 10/14/23 documented as of this encounter
--- OUTSIDE RECORDS SUMMARY | 2024-09-15 16:40 | XMS_ITS | Encounter Summary ---
Author Organization [facility] Address [address] [place] [address] Care Team Providers Care Bods Developer Name Role Phone Antelmo Davey MD Unavailable [phone] Deacon Valladares MD Unavailable [phone] Shanna June CNP Unavailable [phone] Shanna June CNP Primary Care Provider [phone] Rachel Foley MD Primary Care Provider [phone] Tj Najera Unavailable [phone] Anna Mendez APRN.[facility] Primary Care Provider Thomas Alas MD Primary Care Provider +-4 Georgina Barkley MD Unavailable [phone] Source Comments In the event this information is protected by the Federal Confidentiality of Alcohol and Drug AbusePatient Records regulations: The Federal rules restrict any use of the information to criminally investigate or prosecute any alcohol or drug abuse patient.[facility] Encounter Details Date Type Department Care Team (Late st Contact Info) Description 05/06/2020 Get Medical Advice General Surgery [address] [place] [address] [place] [address] [place] [address] RE: Visit Follow Up Question Social History [...] N ot on file 01/21/2020 Data from: https://www.neighborhoodatlas.medicine.[facility].edu/. Last address used for calculation Not on file 01/21/2020 Education Answer Date Recorded What is the highest level of school you have completed or the highest degree you have received? Master's degree (e.g., MA, MS, Birgit, MEd, RADIOLOGY CLERK, IVANIA) 10/15/2019 Comments No Sex and [...] 09/18/2024 12:30 PM EDT Infusion Center Hematology/Oncology [address] [place] [address] [place] [address] Carroll dressing and cap change;Labs as needed per patient 09/22/2024 12:30 PM EDT Office Visit Gastroenterology [address] [address] Network Security Administrator, Hpn [address] [place] [address] HPN / PAGE [phone] 09/22/2024 1:00 PM EDT Office Visit Gastroenterology [address] [place] [id number] Georgina Barkley MD [facility] [address] [place] [phone] HPN / PAGE [phone] 09/25/2024 9:00 AM EDT Infusion Center Hematology/Oncology [address] [place] [address] [place] [address] Hodges dressing and cap change;Labs as needed per patient 09/29/2024 10:15 AM EDT Appointment [facility] Endoscopy - ENDO [address] [place] [address] [place] [address] [place] [address] EGD 10/02/2024 9:00 AM EDT Infusion Center Hematology/Oncology [address] [place] [address] [place] [address] Hodges dressing and cap change;Labs as needed per patient 10/09/2024 9:00 AM EDT Infusion Center Hematology/Oncology [address] [place] [address] [place] [address] Hodges dressing and cap change;Labs as needed [...] documented as of this encounter Care Teams Bods Developer Relationship Specialty Start Date End Date Shanna June CNP [address] [place] [address] PCP - General Family Medicine 01/31/20 01/18/22 Rachel Foley MD [address] [place] [address] PCP - General Family Medicine 01/19/22 06/15/22 Anna Mendez APRN.FIBER OPTIC TECHNICIAN [address] [address] PCP - General 06/16/22 07/29/23 Thomas Alas MD [address] [place] [address] PCP - General Family Medicine 07/30/23 Antelmo Davey MD 521 [place] [address] 09/25/19 [place] [address] [place] [address] Consulting General Surgery 09/25/19 Shanna June, BETH [address] [place] [address] Referring Family Medicine 10/19/19 Tj Najera PA [address] [address] Referring Family Medicine 05/13/22 Georgina Barkley MD [address] [place] [address] Home Parenteral Nutrition Provider Gastroenterology 10/14/23 documented as of this encounter
--- OUTSIDE RECORDS SUMMARY | 2024-09-15 16:40 | XMS_ITS | Encounter Summary ---
Author Organization [facility] Address [address] [place] [address] Care Team Providers Care Manager Renewable Energy Name Role Phone Antelmo Davey MD Unavailable [phone] Deacon Valladares MD Unavailable [phone] Shanna June CNP Unavailable [phone] Shanna June CNP Primary Care Provider [phone] Rachel Foley MD Primary Care Provider [phone] Tj Najera Unavailable [phone] Anna Mendez APRN.[facility] Primary Care Provider Thomas Alas MD Primary Care Provider +-[phone] Georgina Barkley MD Unavailable [phone] Source Comments In the event this information is protected by the Federal Confidentiality of Alcohol and Drug AbusePatient Records regulations: The Federal rules restrict any use of the information to criminally investigate or prosecute any alcohol or drug abuse patient.[facility] Encounter Details Date Type Department Care Team (Late st Contact Info) Description 04/16/2020 Get Medical Advice Gastroenterology [address] [address] Kasie Avalos MD [address] [place] [address] RE: Visit Follow Up Question Social History [...] Master's degree (e.g., MA, MS, Birgit, MEd, CAR CARDER, IVANIA) 10/15/2019 Comments No Sex and Gender [...] have Coronavirus / COVID-19? No / Unsure 04/19/2020 4:32 PM EST documented as of this encounter [...] 12:30 PM EDT Infusion Center Hematology/Oncology [address] [place] [address] [place] [address] Carroll dressing and cap change;Labs as needed per patient 09/22/2024 12:30 PM EDT Office Visit Gastroenterology [address] [address] Piano Bench Assembler, Hpn [address] [place] [address] HPN / PAGE [id number] 09/22/2024 1:00 PM EDT Office Visit Gastroenterology [address] [place] [id number] Georgina Barkley MD [facility] [address] [place] [id number] HPN / PAGE [id number] 09/25/2024 9:00 AM EDT Infusion Center Hematology/Oncology [address] [place] [address] [place] [address] Hodges dressing and cap change;Labs as needed per patient 09/29/2024 10:15 AM EDT Appointment [facility] Endoscopy - ENDO [address] [place] [address] [place] [address] [place] [address] EGD 10/02/2024 9:00 AM EDT Infusion Center Hematology/Oncology [address] [place] [address] [place] [address] Hodges dressing and cap change;Labs as needed per patient 10/09/2024 9:00 AM EDT Infusion Center Hematology/Oncology [address] [place] [address] [place] [address] Hodges dressing and cap change;Labs as needed [...] as of this encounter Care Teams Manager Renewable Energy Relationship Specialty Start Date End Date Shanna June CNP [address] [place] [address] PCP - General Family Medicine 01/31/20 01/18/22 Rachel Foley MD 521 [place] [address] PCP - General Family Medicine 01/19/22 06/15/22 Anna Mendez APRN.WEB APPLICATION DEVELOPER [address] [address] PCP - General 06/16/22 07/29/23 Thomas Alas MD [address] [place] [address] PCP - General Family Medicine 07/30/23 Antelmo Davey MD 521 [place] [address] 09/25/19 [place] [address] [place] [address] Consulting General Surgery 09/25/19 Shanna June, BETH [address] [place] [address] Referring Family Medicine 10/19/19 Tj Najera PA [address] [address] Referring Family Medicine 05/13/22 Georgina Barkley MD [address] [place] [address] Home Parenteral Nutrition Provider Gastroenterology 10/14/23 documented as of this encounter
--- OUTSIDE RECORDS SUMMARY | 2024-09-15 16:40 | XMS_ITS | Encounter Summary ---
Author Organization [facility] Address [address] [place] [address] Care Team Providers Care Product Marketing Director Name Role Phone Antelmo Davey MD Unavailable Deacon Valladares MD Unavailable Shanna June CNP Unavailable [phone] Shanna June CNP Primary Care Provider [phone] Rachel Foley MD Primary Care Provider [phone] Tj Najera Unavailable [phone] Anna Mendez APRN.[facility] Primary Care Provider Thomas Alas MD Primary Care Provider +-[phone] Georgina Barkley MD Unavailable [phone] Source Comments In the event this information is protected by the Federal Confidentiality of Alcohol and Drug AbusePatient Records regulations: The Federal rules restrict any use of the information to criminally investigate or prosecute any alcohol or drug abuse patient.[facility] Encounter Details Date Type Department Care Team (Late st Contact Info) Description 04/16/2020 Get Medical Advice General Surgery [address] [place] [address] [place] [address] [address] [place] [phone] RE: Upcoming Appointment Question Social History Tobacco [...] on file 01/21/2020 Data from: https://www.neighborhoodatlas.medicine.[facility].edu/. Last address used for calculation Not on file 01/21/2020 Education Answer Date Recorded What is the highest level of school you have completed or the highest degree you have received? Master's degree (e.g., MA, MS, Birgit, MEd, TUMBLER MACHINE OPERATOR HELPER, IVANIA) 10/15/2019 Comments No Sex and Gender [...] 12:30 PM EDT Infusion Center Hematology/Oncology [address] [place] [address] [place] [address] Carroll dressing and cap change;Labs as needed per patient 09/22/2024 12:30 PM EDT Office Visit Gastroenterology [address] [address] Aircraft Hydraulic Equipment Mechanic, Hpn [address] [place] [address] HPN / PAGE [id number] 09/22/2024 1:00 PM EDT Office Visit Gastroenterology [address] [place] [id number] Georgina Barkley MD [facility] [address] [place] [id number] HPN / PAGE [id number] 09/25/2024 9:00 AM EDT Infusion Center Hematology/Oncology [address] [place] [address] [place] [address] Hodges dressing and cap change;Labs as needed per patient 09/29/2024 10:15 AM EDT Appointment [facility] Endoscopy - ENDO [address] [place] [address] [place] [address] [place] [address] EGD 10/02/2024 9:00 AM EDT Infusion Center Hematology/Oncology [address] [place] [address] [place] [address] Hodges dressing and cap change;Labs as needed per patient 10/09/2024 9:00 AM EDT Infusion Center Hematology/Oncology [address] [place] [address] [place] [address] Hodges dressing and cap change;Labs as needed [...] documented as of this encounter Care Teams Product Marketing Director Relationship Specialty Start Date End Date Shanna June CNP [address] [place] [address] PCP - General Family Medicine 01/31/20 01/18/22 Rachel Foley MD 521 [place] [address] PCP - General Family Medicine 01/19/22 06/15/22 Anna Mendez APRN.THIRD RAIL INSTALLER [address] [address] PCP - General 06/16/22 07/29/23 Thomas Alas MD [address] [place] [address] PCP - General Family Medicine 07/30/23 Antelmo Davey MD 521 [place] [address] 09/25/19 [place] [address] [place] [address] Consulting General Surgery 09/25/19 Shanna June, BETH [address] [place] [address] Referring Family Medicine 10/19/19 Tj Njaera PA [address] [address] Referring Family Medicine 05/13/22 Georgina Barkley MD [address] [place] [address] Home Parenteral Nutrition Provider Gastroenterology 10/14/23 documented as of this encounter
--- OUTSIDE RECORDS SUMMARY | 2024-09-15 16:40 | XMS_ITS | Clinical Summary ---
Author Organization [facility] Address [address] [place] [address] Care Team Providers Care Recruitment Consultant Name Role Phone Thomas Alas MD Primary Care Provider [phone] Allergies Active Allergy Reactions Criticality Noted Date [...] age to complete this topic Insurance MMO [facility] [email or web address] Care Teams Recruitment Consultant Relationship Specialty Start Date End Date Thomas Alas MD PCP - General 12/30/23
--- OUTSIDE RECORDS SUMMARY | 2024-09-15 16:40 | XMS_ITS | Encounter Summary ---
Author Organization [facility] Address [address] [place] [address] Care Team Providers Care Postal Supervisor Name Role Phone Antelmo Davey MD Unavailable [phone] Deacon Valladares MD Unavailable [phone] Shanna June [facility] Unavailable [phone] Tj Najera Unavailable [phone] Anna Mendez APRN.[facility] Primary Care Provider Thomas Alas MD Primary Care Provider [phone] Georgina Barkley MD Unavailable [phone] Source Comments In the event this information is protected by the Federal Confidentiality of Alcohol and Drug AbusePatient Records regulations: The Federal rules restrict any use of the information to criminally investigate or prosecute any alcohol or drug abuse patient.[facility] Encounter Details Date Type Department Care Team (Late st Contact Info) Description 12/24/2022 Get Medical Advice BMI [facility] RE[facility] [id number] [facility] [place], [place] [id number] [place] [address] [place] [address] Medication Social History Tobacco Use Types Packs/Day Years [...] How often do you attend chur or restorationism services? 1 to 4 times per year 10/28/2022 Do you belong to any clubs o r organizations such as jain groups, unions, fraternal or athletic groups, or [...] Answer Date Recorded PHQ-2 score 2 11/12/2022 [facility] [place] of Occupat ional Health - Occupational Stress [...] in a senior care (including now)? No 12/06/2022 Area Deprivation Index Answer Date Nayan rded National Score (1-100), lower number is lower ri sk 64 06/17/2022 State Score (1-10), lower number is lower risk 4 06/17/2022 Data from: https://www.neighborhoodatlas.medicine.[facility].edu/. Last address used for calculation [address] [place] [address] RD 46 06/17/2022 Education Answer Date Recorded What is the highest level of school you have completed or the highest degree you have received? Master's degree (e.g., MA, MS, Birgit, MEd, TECHNOLOGY RECRUITER, IVANIA) 10/15/2019 Comments No Sex and Gender [...] 12:30 PM EDT Infusion Center Hematology/Oncology [address] [place] [address] [place] [address] Hodges dressing and cap change;Labs as needed per patient 09/22/2024 12:30 PM EDT Office Visit Gastroenterology 2048 [place] [address] Top Closer, Hpn [address] [place] [id number] HPN / PAGE [id number] 09/22/2024 1:00 PM EDT Office Visit Gastroenterology 2048 [place] [address] Georgina Barkley MD [facility] 2048 [place] [address] HPN / PAGE [id number] 09/25/2024 9:00 AM EDT Infusion Center Hematology/Oncology [address] [place] [address] [place] [address] Hodges dressing and cap change;Labs as needed per patient 09/29/2024 10:15 AM EDT Appointment [facility] Endoscopy - ENDO [address] [place] [address] [place] [address] [place] [address] EGD 10/02/2024 9:00 AM EDT Infusion Center Hematology/Oncology [address] [place] [address] [place] [address] Hodges dressing and cap change;Labs as needed per patient 10/09/2024 9:00 AM EDT Infusion Center Hematology/Oncology [address] [place] [address] [place] [address] Hodges dressing and cap change;Labs as needed per patient documented as of this encounter Visit Diagnoses Not on filedocumented in this encounter Additional Health Concerns Infection Onset Date Last Indicated Resolved Time COVID-19 Rule-Out 06/06/2023 06/06/2023 06/06/2023 6:19 PM EDT documented as of this encounter Care Teams Postal Supervisor Relationship Specialty Start Date End Date Anna Mendez APRN.DUST COLLECTOR OPERATOR [address] [address] PCP - General 06/16/22 07/29/23 Thomas Alas MD [address] [place] [address] PCP - General Family Medicine 07/30/23 Antelmo Davey MD [address] [place] [address] 09/25/19 [place] [address] [place] [address] Consulting General Surgery 09/25/19 Shanna June CNP [address] [place] [address] Referring Family Medicine 10/19/19 Tj Najera PA [address] [facility] 150 [place] [address] Referring Family Medicine 05/13/22 Georgina Barkley MD [address] [place] [address] Home Parenteral Nutrition Provider Gastroenterology 10/14/23 documented as of this encounter
--- OUTSIDE RECORDS SUMMARY | 2024-09-15 16:40 | XMS_ITS | Encounter Summary ---
Author Organization [facility] Address [address] [place] [address] Care Team Providers Care Manager Meat Name Role Phone Antelmo Davey MD Unavailable Deacon Valladares MD Unavailable [phone] Shanna June CNP Unavailable [phone] Shanna June CNP Primary Care Provider [phone] Rachel Foley MD Primary Care Provider [phone] Tj Najera Unavailable [phone] Anna Mendez APRN.[facility] Primary Care Provider Thomas Alas MD Primary Care Provider +[phone] Georgina Barkley MD Unavailable [phone] Source Comments In the event this information is protected by the Federal Confidentiality of Alcohol and Drug AbusePatient Records regulations: The Federal rules restrict any use of the information to criminally investigate or prosecute any alcohol or drug abuse patient.[facility] Encounter Details Date Type Department Care Team (Late st Contact Info) Description 04/17/2020 Get Medical Advice General Surgery [address] [place] [address] [place] [address] [address] [place] [phone] Upcoming Appointment Question Social History Tobacco Use [...] N ot on file 01/21/2020 Data from: https://www.neighborhoodatlas.medicine.[facility].edu/. Last address used for calculation Not on file 01/21/2020 Education Answer Date Recorded What is the highest level of school you have completed or the highest degree you have received? Master's degree (e.g., MA, MS, Birgit, MEd, LOAN BROKER, IVANIA) 10/15/2019 Comments No Sex and Gender [...] 12:30 PM EDT Infusion Center Hematology/Oncology [address] [place] [address] [place] [address] Carroll dressing and cap change;Labs as needed per patient 09/22/2024 12:30 PM EDT Office Visit Gastroenterology [address] [address] Real Estate Rep, Hpn [address] [place] [address] HPN / PAGE [id number] 09/22/2024 1:00 PM EDT Office Visit Gastroenterology 20[address] [place] [id number] Georgina Barkley MD [facility] [address] [place] [id number] HPN / PAGE [id number] 09/25/2024 9:00 AM EDT Infusion Center Hematology/Oncology [address] [place] [address] [place] [address] Hodges dressing and cap change;Labs as needed per patient 09/29/2024 10:15 AM EDT Appointment [facility] Endoscopy - ENDO [address] [place] [address] [place] [address] [place] [address] EGD 10/02/2024 9:00 AM EDT Infusion Center Hematology/Oncology [address] [place] [address] [place] [address] Hodges dressing and cap change;Labs as needed per patient 10/09/2024 9:00 AM EDT Infusion Center Hematology/Oncology [address] [place] [address] [place] [address] Hodges dressing and cap change;Labs as needed [...] as of this encounter Care Teams Manager Meat Relationship Specialty Start Date End Date Shanna June CNP [address] [place] [address] PCP - General Family Medicine 01/31/20 01/18/22 Rachel Foley MD 521 [place] [address] PCP - General Family Medicine 01/19/22 06/15/22 Anna Mendez APRN.SOCIAL SCIENCE PROFESSOR [address] [address] PCP - General 06/16/22 07/29/23 Thomas Alas MD [address] [place] [address] PCP - General Family Medicine 07/30/23 Antelmo Davey MD 521 [place] [address] 09/25/19 [place] [address] [place] [address] Consulting General Surgery 09/25/19 Shanna June, BETH [address] [place] [address] Referring Family Medicine 10/19/19 Tj Najera PA [address] [address] Referring Family Medicine 05/13/22 Georgina Barkley MD [address] [place] [address] Home Parenteral Nutrition Provider Gastroenterology 10/14/23 documented as of this encounter
--- OUTSIDE RECORDS SUMMARY | 2024-09-15 16:40 | XMS_ITS | Encounter Summary ---
Author Organization [facility] Address [address] [place] [address] Care Team Providers Care Mold Injector Name Role Phone Antelmo Davey MD Unavailable Deacon Valladares MD Unavailable Shanna June CNP Unavailable [phone] Tj Najera Unavailable [phone] Thomas Alas MD Primary Care Provider [phone] Georgina Barkley MD Unavailable [phone] Source Comments In the event this information is protected by the Federal Confidentiality of Alcohol and Drug AbusePatient Records regulations: The Federal rules restrict any use of the information to criminally investigate or prosecute any alcohol or drug abuse patient.[facility] Encounter Details Date Type Department Care Team (Late st Contact Info) Description 02/24/2024 Get Medical Advice Gastroenterology [address] [address] Kasie Avalos MD 9500 [place] [address] Symptoms Social History Tobacco Use Types Packs/Day Years Used Date Smoking Tobacco: Never Smokeless Tobacco: Never Alcohol Use Standard Drinks/Week Comments Not Currently 0 (1 standard drink = 0.6 oz pur e alcohol) [facility] Utilities Answer Date Recorded In the [...] Answer Date Recorded PHQ-2 score 3 01/14/2024 [facility] [place] of Occupat ional Health - Occupational Stress [...] in the past 12 m [facility], were you homeless or living in a group home (including now)? No 12/02/2023 Area Deprivation Index Answer Date Nayan rded National Score (1-100), lower number is lower ri sk 64 06/17/2022 State Score (1-10), lower number is lower risk 4 06/17/2022 Data from: https://www.neighborhoodatlas.medicine.[facility].edu/. Last address used for calculation [id number] [place] [address] [address] 06/17/2022 Education Answer Date Recorded What is the highest level of school you have completed or the highest degree you have received? Master's degree (e.g., MA, MS, Birgit, MEd, CIAIO LUMITE INJECTOR, IVANIA) 10/15/2019 Comments No Sex and Gender [...] 12:30 PM EDT Infusion Center Hematology/Oncology [address] [place] [address] [place] [address] Hodges dressing and cap change;Labs as needed per patient 09/22/2024 12:30 PM EDT Office Visit Gastroenterology [address] [address] Geological Science Teacher, Hpn [address] [place] [address] HPN / PAGE [id number] 09/22/2024 1:00 PM EDT Office Visit Gastroenterology 20[address] [place] [phone] Georgina Barkley MD [facility] [address] [address] HPN / PAGE [id number] 09/25/2024 9:00 AM EDT Infusion Center Hematology/Oncology [address] [place] [address] [place] [address] Hodges dressing and cap change;Labs as needed per patient 09/29/2024 10:15 AM EDT Appointment [facility] Endoscopy - ENDO [address] [place] [id number] [place] [address] [place] [id number] EGD 10/02/2024 9:00 AM EDT Infusion Center Hematology/Oncology [address] [place] [address] [place] [address] Hodges dressing and cap change;Labs as needed per patient 10/09/2024 9:00 AM EDT Infusion Center Hematology/Oncology [address] [place] [address] [place] [address] Hodges dressing and cap change;Labs as needed per patient documented as of this encounter Goals Goal Patient Goal Type Associated Problems Recent Progress Patient-Stated? Author Blood Pressure < 140/90 Blood Pressure 112/76( 025 8:48 AM EDT) No Hannah Devlin MD documented as of this encounter Visit Diagnoses Not on filedocumented in this encounter Care Teams Mold Injector Relationship Specialty Start Date End Date Thomas Alas MD [address] [place] [address] PCP - General Family Medicine 07/30/23 Antelmo Davey MD [address] [place] [address] 09/25/19 [place] [address] [place] [address] Consulting General Surgery 09/25/19 Shanna June CNP [address] [place] [address] Referring Family Medicine 10/19/19 Tj Najera PA [address] [address] Referring Family Medicine 05/13/22 Georgina Barkley MD [address] [place] [address] Home Parenteral Nutrition Provider Gastroenterology 10/14/23 documented as of this encounter
--- OUTSIDE RECORDS SUMMARY | 2024-09-15 16:40 | XMS_ITS | Encounter Summary ---
Author Organization [facility] Address [address] [place] [address] Care Team Providers Care Ancillary Services Manager Therapy Name Role Phone Antelmo Davey MD Unavailable [phone] Deacon Valladares MD Unavailable Shanna June CNP Unavailable +[phone] Shanna June CNP Primary Care Provider [phone] Rachel Foley MD Primary Care Provider [phone] Tj Najera Unavailable [phone] Anna Mendez APRN.[facility] Primary Care Provider Thomas Alas MD Primary Care Provider +-4 Georgina Barkley MD Unavailable [phone] Source Comments In the event this information is protected by the Federal Confidentiality of Alcohol and Drug AbusePatient Records regulations: The Federal rules restrict any use of the information to criminally investigate or prosecute any alcohol or drug abuse patient.[facility] Encounter Details Date Type Department Care Team (Late st Contact Info) Description 04/25/2020 Patient Msg Colorectal Surgery [address] [address] Provider, Ccf RE: Appointment Request Social History Tobacco Use Types [...] on file 01/21/2020 Data from: https://www.neighborhoodatlas.medicine.[facility].edu/. Last address used for calculation Not on file 01/21/2020 Education Answer Date Recorded What is the highest level of school you have completed or the highest degree you have received? Master's degree (e.g., MA, MS, Birgit, MEd, LOCAL TANKER TRUCK DRIVER, IVANIA) 10/15/2019 Comments No Sex and Gender [...] [facility] Center Hematology/Oncology [address] [place] [address] [place] [address] Hodges dressing and cap change;Labs as needed per patient 09/22/2024 12:30 PM EDT Office Visit Gastroenterology [address] [place] [phone] Visual Merchandiser, Grupo [address] [place], [place] [address] HPN / PAGE [id number] 09/22/2024 1:00 PM EDT Office Visit Gastroenterology [address] [phone] Georgina Barkley MD [address] [address] HPN / PAGE [id number] 09/25/2024 9:00 AM EDT Infusion Center Hematology/Oncology [address] [place] [address] [place] [address] Hodges dressing and cap change;Labs as needed per patient 09/29/2024 10:15 AM EDT Appointment [facility] Endoscopy - ENDO [address] [place] [address] [place] [address] [place] [address] EGD 10/02/2024 9:00 AM EDT Infusion Center Hematology/Oncology [address] [place] [address] [place] [address] Hodges dressing and cap change;Labs as needed per patient 10/09/2024 9:00 AM EDT Infusion Center Hematology/Oncology [address] [place] [address] [place] [address] Hodges dressing and cap change;Labs as needed [...] documented as of this encounter Care Teams Ancillary Services Manager Therapy Relationship Specialty Start Date End Date Shanna June CNP [address] [place] [address] PCP - General Family Medicine 01/31/20 01/18/22 Rachel Foley MD [address] [place] [address] PCP - General Family Medicine 01/19/22 06/15/22 Anna Mendez APRN.BOILERMAKER FITTER [address] [address] PCP - General 06/16/22 07/29/23 Thomas Alas MD [address] [place] [address] PCP - General Family Medicine 07/30/23 Antelmo Davey MD [address] [place] [address] 09/25/19 [place] [address] [place] [address] Consulting General Surgery 09/25/19 Shanna June, BETH [address] [place] [address] Referring Family Medicine 10/19/19 Tj Najera PA [address] [address] Referring Family Medicine 05/13/22 Georgina Barkley MD [address] [place] [address] Home Parenteral Nutrition Provider Gastroenterology 10/14/23 documented as of this encounter
--- OUTSIDE RECORDS SUMMARY | 2024-09-15 16:40 | XMS_ITS | Encounter Summary ---
Author Organization [facility] Address [address] [place] [address] Care Team Providers Care Machine Slat Basket Maker Name Role Phone Antelmo Davey MD Unavailable Deacon Valladares MD Unavailable [phone] Shanna June CNP Unavailable [phone] Shanna June CNP Primary Care Provider [phone] Rachel Foley MD Primary Care Provider [phone] Tj Najera Unavailable [phone] Anna Mendez APRN.[facility] Primary Care Provider Thomas Alas MD Primary Care Provider +-4 Georgina Barkley MD Unavailable [phone] Source Comments In the event this information is protected by the Federal Confidentiality of Alcohol and Drug AbusePatient Records regulations: The Federal rules restrict any use of the information to criminally investigate or prosecute any alcohol or drug abuse patient.[facility] Encounter Details Date Type Department Care Team (Late st Contact Info) Description 04/17/2020 Get Medical Advice General Surgery [address] [place] [address] [place] [address] [address] [place] [phone] Upcoming Appointment Question Social History Tobacco Use [...] N ot on file 01/21/2020 Data from: https://www.neighborhoodatlas.medicine.[facility].edu/. Last address used for calculation Not on file 01/21/2020 Education Answer Date Recorded What is the highest level of school you have completed or the highest degree you have received? Master's degree (e.g., MA, MS, Birgit, MEd, WAITER/WAITRESS CLUB, IVANIA) 10/15/2019 Comments No Sex and Gender [...] 12:30 PM EDT Infusion Center Hematology/Oncology [address] [place] [address] [place] [address] Carroll dressing and cap change;Labs as needed per patient 09/22/2024 12:30 PM EDT Office Visit Gastroenterology [address] [address] Nurse Practitioner, Hpn [address] [place] [address] HPN / PAGE [id number] 09/22/2024 1:00 PM EDT Office Visit Gastroenterology [address] [place] [address] [phone] Georgina Barkley MD [facility] [address] [id number] HPN / PAGE [id number] 09/25/2024 9:00 AM EDT Infusion Center Hematology/Oncology [address] [place] [address] [place] [address] Hodges dressing and cap change;Labs as needed per patient 09/29/2024 10:15 AM EDT Appointment [facility] Endoscopy - ENDO [address] [place] [address] [place] [address] [place] [address] EGD 10/02/2024 9:00 AM EDT Infusion Center Hematology/Oncology [address] [place] [address] [place] [address] Hodges dressing and cap change;Labs as needed per patient 10/09/2024 9:00 AM EDT Infusion Center Hematology/Oncology [address] [place] [address] [place] [address] Hodges dressing and cap change;Labs as needed [...] documented as of this encounter Care Teams Machine Slat Basket Maker Relationship Specialty Start Date End Date Shanna June CNP [address] [place] [address] PCP - General Family Medicine 01/31/20 01/18/22 Rachel Foley MD [address] [place] [address] PCP - General Family Medicine 01/19/22 06/15/22 Anna Mendez APRN.CORRUGATED FASTENER DRIVER [address] [address] PCP - General 06/16/22 07/29/23 Thomas Alas MD [address] [place] [address] PCP - General Family Medicine 07/30/23 Antelmo Davey MD [address] [place] [address] 09/25/19 [place] [address] [place] [address] Consulting General Surgery 09/25/19 Shanna June, BETH [address] [place] [address] Referring Family Medicine 10/19/19 Tj Najera PA [address] [address] Referring Family Medicine 05/13/22 Georgina Barkley MD [address] [place] [address] Home Parenteral Nutrition Provider Gastroenterology 10/14/23 documented as of this encounter
--- OUTSIDE RECORDS SUMMARY | 2024-09-15 16:40 | XMS_ITS | Encounter Summary ---
Author Organization [facility] Address [address] [place] [address] Care Team Providers Care Sewer Separation Designer Name Role Phone Antelmo Davey MD Unavailable Deacon Valladares MD Unavailable Shanna June CNP Unavailable [phone] Shanna June CNP Primary Care Provider [phone] Rachel Foley MD Primary Care Provider [phone] Tj Najera Unavailable [phone] Anna Mendez APRN.[facility] Primary Care Provider Thomas Alas MD Primary Care Provider +-4 Georgina Barkley MD Unavailable [phone] Source Comments In the event this information is protected by the Federal Confidentiality of Alcohol and Drug AbusePatient Records regulations: The Federal rules restrict any use of the information to criminally investigate or prosecute any alcohol or drug abuse patient.[facility] Encounter Details Date Type Department Care Team (Late st Contact Info) Description 04/17/2020 Get Medical Advice General Surgery [address] [place] [address] [place] [address] [place] [phone] RE: Upcoming Appointment Question Social History Tobacco [...] N ot on file 01/21/2020 Data from: https://www.neighborhoodatlas.medicine.[facility].edu/. Last address used for calculation Not on file 01/21/2020 Education Answer Date Recorded What is the highest level of school you have completed or the highest degree you have received? Master's degree (e.g., MA, MS, Birgit, MEd, EXCEPTIONAL NEEDS TEACHER, IVANIA) 10/15/2019 Comments No Sex and [...] 12:30 PM EDT Infusion Center Hematology/Oncology [address] [place] [address] [place] [address] Carroll dressing and cap change;Labs as needed per patient 09/22/2024 12:30 PM EDT Office Visit Gastroenterology [address] [address] Health Professor, Hpn [address] [place] [address] HPN / PAGE [id number] 09/22/2024 1:00 PM EDT Office Visit Gastroenterology [address] [place] [address] [phone] Georgina Barkley MD [facility] [address] [place] [address] [phone] HPN / PAGE [id number] 09/25/2024 9:00 AM EDT Infusion Center Hematology/Oncology [address] [place] [address] [place] [address] Hodges dressing and cap change;Labs as needed per patient 09/29/2024 10:15 AM EDT Appointment [facility] Endoscopy - ENDO [address] [place] [address] [place] [address] [place] [address] EGD 10/02/2024 9:00 AM EDT Infusion Center Hematology/Oncology [address] [place] [address] [place] [address] Hodges dressing and cap change;Labs as needed per patient 10/09/2024 9:00 AM EDT Infusion Center Hematology/Oncology [address] [place] [address] [place] [address] Hodges dressing and cap change;Labs as needed [...] documented as of this encounter Care Teams Sewer Separation Designer Relationship Specialty Start Date End Date Shanna June CNP [address] [place] [address] PCP - General Family Medicine 01/31/20 01/18/22 Rachel Foley MD [address] [place] [address] PCP - General Family Medicine 01/19/22 06/15/22 Anna Mendez APRN.SECURITY RESEARCHER [address] [address] PCP - General 06/16/22 07/29/23 Thomas Alas MD [address] [place] [address] PCP - General Family Medicine 07/30/23 Antelmo Davey MD [address] [place] [address] 09/25/19 [place] [address] [place] [address] Consulting General Surgery 09/25/19 Shanna June, BETH [address] [place] [address] Referring Family Medicine 10/19/19 Tj Najera PA [address] [address] Referring Family Medicine 05/13/22 Georgina Barkley MD [address] [place] [address] Home Parenteral Nutrition Provider Gastroenterology 10/14/23 documented as of this encounter
--- OUTSIDE RECORDS SUMMARY | 2024-09-15 16:40 | XMS_ITS | Encounter Summary ---
Author Organization [facility] Address [address] [place] [address] Care Team Providers Care Dust Handler Name Role Phone Antelmo Davey MD Unavailable [phone] Deacon Valladares MD Unavailable [phone] Shanna June CNP Unavailable [phone] Tj Najera Unavailable [phone] Thomas Alas MD Primary Care Provider +-4 Georgina Barkley MD Unavailable [phone] Source Comments In the event this information is protected by the Federal Confidentiality of Alcohol and Drug AbusePatient Records regulations: The Federal rules restrict any use of the information to criminally investigate or prosecute any alcohol or drug abuse patient.[facility] Encounter Details Date Type Department Care Team (Late st Contact Info) Description 01/17/2024 Get Medical Advice Gastroenterology [address] [address] Georgina Barkley MD [facility] [address] [address] J tube Social History Tobacco Use Types Packs/Day Years Used Date Smoking Tobacco: Never Smokeless Tobacco: Never Alcohol Use Standard Drinks/Week Comments Not Currently 0 (1 standard drink = 0.6 oz pur e alcohol) [facility] Utilities Answer Date [...] often do you attend chur ch or catholic services? 1 to 4 times per [...] Answer Date Recorded PHQ-2 score 3 01/14/2024 [facility] [place] Occupat ional Health - Occupational Stress [...] any time in the past 12 m [facility], were you homeless or living in a penitentiary (including now)? No 12/02/2023 Area Deprivation Index Answer Date Nayan rded National Score (1-100), lower number is lower ri sk 64 06/17/2022 State Score (1-10), lower number is lower risk 4 06/17/2022 Data from: https://www.neighborhoodatlas.medicine.[facility].edu/. Last address used for calculation [id number] [place] [address] [address] 06/17/2022 Education Answer Date Recorded What is the highest level of school you have completed or the highest degree you have received? Master's degree (e.g., MA, MS, Birgit, MEd, BREASTFEEDING PEER COUNSELOR, VIANIA) 10/15/2019 Comments No Sex and Gender Information [...] 09/18/2024 12:30 PM EDT Infusion Center Hematology/Oncology [address] [place] [address] [place] [address] Hodges dressing and cap change;Labs as needed per patient 09/22/2024 12:30 PM EDT Office Visit Gastroenterology [address] [address] Pilot Plant Supervisor, Hpn [address] [place] [address] HPN / PAGE [id number] 09/22/2024 1:00 PM EDT Office Visit Gastroenterology [address] [place] [phone] Georgina Barkley MD [facility] [address] [address] HPN / PAGE [id number] 09/25/2024 9:00 AM EDT Infusion Center Hematology/Oncology [address] [place] [address] [place] [address] Hodges dressing and cap change;Labs as needed per patient 09/29/2024 10:15 AM EDT Appointment [facility] Endoscopy - ENDO [address] [place] [phone] [place] [address] [place] [id number] EGD 10/02/2024 9:00 AM EDT Infusion Center Hematology/Oncology [address] [place] [address] [place] [address] Hodges dressing and cap change;Labs as needed per patient 10/09/2024 9:00 AM EDT Infusion Center Hematology/Oncology [address] [place] [address] [place] [address] Hodges dressing and cap change;Labs as needed per patient documented as of this encounter Goals Goal Patient Goal Type Associated Problems Recent Progress Patient-Stated? Author Blood Pressure < 140/90 Blood Pressure 112/76( 025 8:48 AM EDT) No Hannah Devlin MD documented as of this encounter Visit Diagnoses Not on filedocumented in this encounter Care Teams Dust Handler Relationship Specialty Start Date End Date Thomas Alas MD [address] [place] [address] PCP - General Family Medicine 07/30/23 Antelmo Davey MD [address] [place] [address] 09/25/19 [place] [address] [place] [address] Consulting General Surgery 09/25/19 Shanna June CNP [address] [place] [address] Referring Family Medicine 10/19/19 Tj Najera PA [address] [address] Referring Family Medicine 05/13/22 Georgina Barkley MD [address] [place] [address] Home Parenteral Nutrition Provider Gastroenterology 10/14/23 documented as of this encounter
--- OUTSIDE RECORDS SUMMARY | 2024-09-15 16:41 | XMS_ITS | Encounter Summary ---
Author Organization [facility] Address [address] [place] [address] Care Team Providers Care Envelope Cutter Name Role Phone Antelmo Davey MD Unavailable Deacon Valladares MD Unavailable Shanna June CNP Unavailable [phone] Shanna June CNP Primary Care Provider [phone] Rachel Foley MD Primary Care Provider [phone] Tj Najera Unavailable [phone] Anna Mendez APRN.[facility] Primary Care Provider Thomas Alas MD Primary Care Provider +-4 Georgina Barkley MD Unavailable [phone] Source Comments In the event this information is protected by the Federal Confidentiality of Alcohol and Drug AbusePatient Records regulations: The Federal rules restrict any use of the information to criminally investigate or prosecute any alcohol or drug abuse patient.[facility] Encounter Details Date Type Department Care Team (Late st Contact Info) Description 04/13/2020 Patient Msg Gastroenterology [address] [address] Kasie Avalos MD [address] [place] [address] RE: Upcoming appointmnet Social History Tobacco Use Types Packs/Day Years [...] N ot on file 01/21/2020 Data from: https://www.neighborhoodatlas.medicine.[facility].edu/. Last address used for calculation Not on file 01/21/2020 Education Answer Date Recorded What is the highest level of school you have completed or the highest degree you have received? Master's degree (e.g., MA, MS, Birgit, MEd, METAL SPRAYER, IVANIA) 10/15/2019 Comments No Sex and Gender [...] have Coronavirus / COVID-19? No / Unsure 04/16/2020 6:24 AM EST documented as of this encounter [...] 09/18/2024 12:30 PM EDT Infusion Center Hematology/Oncology [address] [place] [address] [place] [address] Carroll dressing and cap change;Labs as needed per patient 09/22/2024 12:30 PM EDT Office Visit Gastroenterology [address] [address] Regulatory Affairs Intern, Hpn [address] [place] [address] HPN / PAGE [id number] 09/22/2024 1:00 PM EDT Office Visit Gastroenterology [address] [place] [phone] Georgina Barkley MD [facility] [address] [place] [id number] HPN / PAGE [id number] 09/25/2024 9:00 AM EDT Infusion Center Hematology/Oncology [address] [place] [address] [place] [address] Hodges dressing and cap change;Labs as needed per patient 09/29/2024 10:15 AM EDT Appointment [facility] Endoscopy - ENDO [address] [place] [address] [place] [address] [place] [address] EGD 10/02/2024 9:00 AM EDT Infusion Center Hematology/Oncology [address] [place] [address] [place] [address] Hodges dressing and cap change;Labs as needed per patient 10/09/2024 9:00 AM EDT Infusion Center Hematology/Oncology [address] [place] [address] [place] [address] Hodges dressing and cap change;Labs as needed [...] documented as of this encounter Care Teams Envelope Cutter Relationship Specialty Start Date End Date Shanna June CNP [address] [place] [address] PCP - General Family Medicine 01/31/20 01/18/22 Rachel Foley MD [address] [place] [address] PCP - General Family Medicine 01/19/22 06/15/22 Anna Mendez APRN.PIPE AND TEST SUPERVISOR [address] [address] PCP - General 06/16/22 07/29/23 Thomas Alas MD [address] [place] [address] PCP - General Family Medicine 07/30/23 Antelmo Davey MD [address] [place] [address] 09/25/19 [place] [address] [place] [address] Consulting General Surgery 09/25/19 Shanna June, BETH [address] [place] [address] Referring Family Medicine 10/19/19 Tj Najera PA [address] [address] Referring Family Medicine 05/13/22 Georgina Barkley MD [address] [place] [address] Home Parenteral Nutrition Provider Gastroenterology 10/14/23 documented as of this encounter
--- OUTSIDE RECORDS SUMMARY | 2024-09-15 16:41 | XMS_ITS | Encounter Summary ---
Author Organization [facility] Address [address] [place] [address] Care Team Providers Care Bumper Machine Operator Name Role Phone Antelmo Davey MD Unavailable Deacon Valladares MD Unavailable [phone] Shanna June [facility] Unavailable [phone] Tj Najera Unavailable [phone] Anna Mendez APRN.[facility] Primary Care Provider Thomas Alas MD Primary Care Provider [phone] Georgina Barkley MD Unavailable [phone] Source Comments In the event this information is protected by the Federal Confidentiality of Alcohol and Drug AbusePatient Records regulations: The Federal rules restrict any use of the information to criminally investigate or prosecute any alcohol or drug abuse patient.[facility] Encounter Details Date Type Department Care Team (Late st Contact Info) Description 12/07/2022 Get Medical Advice General Surgery [address] [place], [place] [id number] Tj Garcia MD [address] [place] [address] Follow-up Appointment Social History Tobacco Use Types Packs/Day [...] How often do you attend chur or presybeterian services? 1 to 4 times per year 10/28/2022 Do you belong to any clubs o r organizations such as yazidism groups, unions, fraternal [...] Answer Date Recorded PHQ-2 score 2 11/12/2022 [facility] [place] of Occupat ional Health - Occupational Stress [...] slept in a fpc (including now)? No 12/06/2022 Area Deprivation Index Answer Date Nayan rded National Score (1-100), lower number is lower ri sk 64 06/17/2022 State Score (1-10), lower number is lower risk 4 06/17/2022 Data from: https://www.neighborhoodatlas.medicine.[facility].edu/. Last address used for calculation [address] [place] [address] [address] 06/17/2022 Education Answer Date Recorded What is the highest level of school you have completed or the highest degree you have received? Master's degree (e.g., MA, MS, Birgit, MEd, WOOD DOWEL MACHINE OPERATOR, IVANIA) 10/15/2019 Comments No Sex [...] hearing? Answer Date of Assessment Author No 11/23/2022 12:19 PM EDT Loretta Ceron RN * Are you blind or do you have serious difficulty seeing, even when wearing glasses? Answer Date of Assessment Author No 11/23/2022 12:19 PM EDT Loretta Ceron RN * Do you have serious difficulty walking or climbing stairs? Answer Date of Assessment Author No 11/23/2022 12:19 PM EDT Loretta Ceron RN * Do you have difficulty dressing or bathing? Answer Date of Assessment Author No 11/23/2022 12:19 PM EDT Loretta Ceron RN * Because of a physical, mental, or emotional condition, do you have difficulty doing errands alone such as visiting a doctor's office or shopping? Answer Date of Assessment Author No 11/23/2022 12:19 PM EDT Loretta Ceron RN documented as of this encounter Mental Status * Because of a physical, mental, or emotional condition, do you have serious difficulty concentrating, remembering, or making decisions? Answer Entry Date Author No 11/23/2022 12:19 PM EDT Loretta Ceron RN documented in this encounter Plan of Treatment Upcoming Encounters Date Type Department Care Team (Latest Contact Info) Description 09/18/2024 12:30 PM EDT Infusion Center Hematology/Oncology [address] [place] [address] [place] [address] Hodges dressing and cap change;Labs as needed per patient 09/22/2024 12:30 PM EDT Office Visit Gastroenterology [address] [id number] Hub Lead, Hpn [address] [place] [id number] HPN / PAGE [id number] 09/22/2024 1:00 PM EDT Office Visit Gastroenterology [address] [id number] Georgina Barkley MD [facility] [address] [id number] HPN / PAGE [id number] 09/25/2024 9:00 AM EDT Infusion Center Hematology/Oncology [address] [place] [address] [place] [address] Hodges dressing and cap change;Labs as needed per patient 09/29/2024 10:15 AM EDT Appointment [facility] Endoscopy - ENDO [address] [place] [address] [place] [address] [place] [address] EGD 10/02/2024 9:00 AM EDT Infusion Center Hematology/Oncology [address] [place] [address] [place] [address] Hodges dressing and cap change;Labs as needed per patient 10/09/2024 9:00 AM EDT Infusion Center Hematology/Oncology [address] [place] [address] [place] [address] Hodges dressing and cap change;Labs as needed per patient documented as of this encounter Visit Diagnoses Not on filedocumented in this encounter Additional Health Concerns Infection Onset Date Last Indicated Resolved Time COVID-19 Rule-Out 06/06/2023 06/06/2023 06/06/2023 6:19 PM EDT documented as of this encounter Care Teams Bumper Machine Operator Relationship Specialty Start Date End Date Anna Mendez APRN.[employer] [address] [address] PCP - General 06/16/22 07/29/23 Thomas Alas MD [address] [place] [address] PCP - General Family Medicine 07/30/23 Antelmo Davey MD [address] [place] [address] 09/25/19 [place] [address] [facility] [place] [address] Consulting General Surgery 09/25/19 Shanna June, BETH [address] [place] [address] Referring Family Medicine 10/19/19 Tj Najera PA [address] [facility] [place] [address] Referring Family Medicine 05/13/22 Georgina Barkley MD [address] [place] [address] Home Parenteral Nutrition Provider Gastroenterology 10/14/23 documented as of this encounter
--- OUTSIDE RECORDS SUMMARY | 2024-09-15 16:41 | XMS_ITS | Encounter Summary ---
Author Organization [facility] Address [address] [place] [address] Care Team Providers Care Cloth Bleaching Range Back Tender Name Role Phone Antelmo Davey MD Unavailable [phone] Deacon Valladares MD Unavailable [phone] Shanna June CNP Unavailable [phone] Tj Najera Unavailable [phone] Thomas Alas MD Primary Care Provider [phone] Georgina Barkley MD Unavailable [phone] Source Comments In the event this information is protected by the Federal Confidentiality of Alcohol and Drug AbusePatient Records regulations: The Federal rules restrict any use of the information to criminally investigate or prosecute any alcohol or drug abuse patient.[facility] Encounter Details Date Type Department Care Team (Late st Contact Info) Description 08/15/2024 Get Medical Advice Gastroenterology [address] [address] Georgina Barkley MD [facility] [address] [address] TPN and Port Social History Tobacco Use Types Packs/Day Years Used Date Smoking Tobacco: Never Smokeless Tobacco: Never Alcohol Use Standard Drinks/Week Comments Not Currently 0 (1 standard drink = 0.6 oz pur e alcohol) [facility] Utilities Answer Date Recorded In [...] often do you attend chur ch or yarsanism services? 1 to 4 times per year [...] PHQ-2 Answer Date Recorded PHQ-2 score 2 06/19/2024 [facility] [place] of Occupat ional Health - Occupational [...] time in the past 12 m [facility], were you homeless or living in a alf (including now)? No 04/12/2024 Area Deprivation Index Answer Date Nayan rded National Score (1-100), lower number is lower ri sk 64 06/17/2022 State Score (1-10), lower number is lower risk 4 06/17/2022 Data from: https://www.neighborhoodatlas.medicine.[facility].edu/. Last address used for calculation [address] [place] [address] [address] 46 06/17/2022 Education Answer Date Recorded What is the highest level of school you have completed or the highest degree you have received? Master's degree (e.g., MA, MS, Birgit, MEd, CHUCKING MACHINE OPERATOR, IVANIA) 10/15/2019 Comments No Sex [...] 09/18/2024 12:30 PM EDT Infusion Center Hematology/Oncology [address] [place] [address] [place] [address] Carroll dressing and cap change;Labs as needed per patient 09/22/2024 12:30 PM EDT Office Visit Gastroenterology [address] [address] Base Filler, Hpn [address] [place] [address] HPN / PAGE [id number] 09/22/2024 1:00 PM EDT Office Visit Gastroenterology [address] [id number] Georgina Barkley MD [facility] [address] [id number] HPN / PAGE [id number] 09/25/2024 9:00 AM EDT Infusion Center Hematology/Oncology [address] [place] [address] [place] [address] Hodges dressing and cap change;Labs as needed per patient 09/29/2024 10:15 AM EDT Appointment [facility] Endoscopy - ENDO [address] [place] [address] [place] [address] [place] [address] EGD 10/02/2024 9:00 AM EDT Infusion Center Hematology/Oncology [address] [place] [address] [place] [address] Hodges dressing and cap change;Labs as needed per patient 10/09/2024 9:00 AM EDT Infusion Center Hematology/Oncology [address] [place] [address] [place] [address] Hodges dressing and cap change;Labs as needed per patient documented as of this encounter Goals Goal Patient Goal Type Associated Problems Recent Progress Patient-Stated? Author Blood Pressure < 140/90 Blood Pressure 112/76( 025 8:48 AM EDT) No Hannah Devlin MD documented as of this encounter Visit Diagnoses Not on filedocumented in this encounter Care Teams Cloth Bleaching Range Back Tender Relationship Specialty Start Date End Date Thomas Alas MD [address] [place] [address] PCP - General Family Medicine 07/30/23 Antelmo Davey MD [address] [place] [address] 09/25/19 [place] [address] [place] [address] Consulting General Surgery 09/25/19 Shanna June CNP [address] [place] [address] Referring Family Medicine 10/19/19 Tj Najera PA [address] [address] Referring Family Medicine 05/13/22 Georgina Barkley MD [address] [place] [address] Home Parenteral Nutrition Provider Gastroenterology 10/14/23 documented as of this encounter
--- OUTSIDE RECORDS SUMMARY | 2024-09-15 16:41 | XMS_ITS | Encounter Summary ---
Author Organization [facility] Address [address] [place] [address] Care Team Providers Care Tomahawk Weapon System Operator Name Role Phone Antelmo Davey MD Unavailable Deacon Valladares MD Unavailable Shanna June CNP Unavailable [phone] Tj Najera Unavailable [phone] Thomas Alas MD Primary Care Provider [phone] Georgina Barkley MD Unavailable [phone] Source Comments In the event this information is protected by the Federal Confidentiality of Alcohol and Drug AbusePatient Records regulations: The Federal rules restrict any use of the information to criminally investigate or prosecute any alcohol or drug abuse patient.[facility] Encounter Details Date Type Department Care Team (Late st Contact Info) Description 07/31/2024 Results Follow-Up Endocrinology [address] [place] [address] [place] [address] [place] [address] Social History Tobacco Use Types Packs/Day Years Used Date Smoking Tobacco: Never Smokeless Tobacco: Never Alcohol Use Standard Drinks/Week Comments Not Currently 0 (1 standard drink = 0.6 oz pur e alcohol) [facility] Utilities Answer Date Recorded In the [...] often do you attend chur ch or gnosticist services? 1 to 4 times per year 10/28/2022 Do you belong to any clubs o r organizations such as rastafari groups, unions, fraternal or athletic groups, or [...] Answer Date Recorded PHQ-2 score 2 06/19/2024 [facility] [place] of Occupat ional Health - Occupational Stress [...] any time in the past 12 m [facility], were you homeless or living in a residential (including now)? No 04/12/2024 Area Deprivation Index Answer Date Anyan rded National Score (1-100), lower number is lower ri sk 64 06/17/2022 State Score (1-10), lower number is lower risk 4 06/17/2022 Data from: https://www.neighborhoodatlas.medicine.[facility].edu/. Last address used for calculation [address] [facility] [address] 06/17/2022 Education Answer Date Recorded What is the highest level of school you have completed or the highest degree you have received? Master's degree (e.g., MA, MS, Birgit, MEd, RESOURCE TECHNICIAN, IVANIA) 10/15/2019 Comments No Sex and [...] 12:30 PM EDT Infusion Center Hematology/Oncology [address] [place] [address] [place] [address] Hodges dressing and cap change;Labs as needed per patient 09/22/2024 12:30 PM EDT Office Visit Gastroenterology [address] [phone] Test Engineering Manager, Hpn [address] [place] [address] HPN / PAGE [id number] 09/22/2024 1:00 PM EDT Office Visit Gastroenterology [address] [phone] Georgina Barkley MD [facility] [address] [place] [address] HPN / PAGE [id number] 09/25/2024 9:00 AM EDT Infusion Center Hematology/Oncology [address] [place] [address] [place] [address] Hodges dressing and cap change;Labs as needed per patient 09/29/2024 10:15 AM EDT Appointment [facility] Endoscopy - ENDO [address] [place] [address] [place] [address] [place] [address] EGD 10/02/2024 9:00 AM EDT Infusion Center Hematology/Oncology [address] [place] [address] [place] [address] Hodges dressing and cap change;Labs as needed per patient 10/09/2024 9:00 AM EDT Infusion Center Hematology/Oncology [address] [place] [address] [place] [address] Hodges dressing and cap change;Labs as needed per patient documented as of this encounter Goals Goal Patient Goal Type Associated Problems Recent Progress Patient-Stated? Author Blood Pressure < 140/90 Blood Pressure 112/76( 025 8:48 AM EDT) No Hannah Devlin MD documented as of this encounter Visit Diagnoses Not on filedocumented in this encounter Care Teams Tomahawk Weapon System Operator Relationship Specialty Start Date End Date Thomas Alas MD [address] [place] [address] PCP - General Family Medicine 07/30/23 Antelmo Davey MD [address] [place] [address] 09/25/19 [place] [address] [place] [address] Consulting General Surgery 09/25/19 Shanna June CNP [address] [place] [address] Referring Family Medicine 10/19/19 Tj Najera PA [address] [address] Referring Family Medicine 05/13/22 Georgina Barkley MD [address] [place] [address] Home Parenteral Nutrition Provider Gastroenterology 10/14/23 documented as of this encounter
--- OUTSIDE RECORDS SUMMARY | 2024-09-15 16:41 | XMS_ITS | Encounter Summary ---
Author Organization [facility] Address [address] [place] [address] Care Team Providers Care Psychiatric Therapist Name Role Phone Antelmo Davey MD Unavailable [phone] Deacon Valladares MD Unavailable [phone] Shanna June CNP Unavailable [phone] Shanna June CNP Primary Care Provider [phone] Rachel Foley MD Primary Care Provider [phone] Tj Najera Unavailable [phone] Anna Mendez APRN.[facility] Primary Care Provider Thomsa Alas MD Primary Care Provider [phone] Georgina Barkley MD Unavailable [phone] Source Comments In the event this information is protected by the Federal Confidentiality of Alcohol and Drug AbusePatient Records regulations: The Federal rules restrict any use of the information to criminally investigate or prosecute any alcohol or drug abuse patient.[facility] Encounter Details Date Type Department Care Team (Late st Contact Info) Description 08/04/2020 Get Medical Advice [facility] REJ [address] [place] [address] [place] [address] [place], [place] [id number] RE: Upcoming Appointment Question Social History Tobacco [...] on file 01/21/2020 Data from: https://www.neighborhoodatlas.medicine.[facility].edu/. Last address used for calculation Not on file 01/21/2020 Education Answer Date Recorded What is the highest level of school you have completed or the highest degree you have received? Master's degree (e.g., MA, MS, Birgit, MEd, ELEMENTARY TUTOR, IVANIA) 10/15/2019 Comments No Sex and Gender [...] Info) Description 09/18/2024 12:30 PM EDT [facility] Hematology/Oncology [address] [place] [address] [place] [address] Hodges dressing and cap change;Labs as needed per patient 09/22/2024 12:30 PM EDT Office Visit Gastroenterology [address] [address] Ethylbenzene Converter Helper, Grupo [address] [place] [address] HPSanchez / PAGE [id number] 09/22/2024 1:00 PM EDT Office Visit Gastroenterology [address] [address] Georgina Barkley MD [facility] [address] [place], [place] [phone] HPN / PAGE [id number] 09/25/2024 9:00 AM EDT Infusion Center Hematology/Oncology [address] [place] [address] [place] [address] Hodges dressing and cap change;Labs as needed per patient 09/29/2024 10:15 AM EDT Appointment [facility] Endoscopy - ENDO [address] [place] [address] [place] [address] [place] [address] EGD 10/02/2024 9:00 AM EDT Infusion Center Hematology/Oncology [address] [place] [address] [place] [address] Hodges dressing and cap change;Labs as needed per patient 10/09/2024 9:00 AM EDT Infusion Center Hematology/Oncology [address] [place] [address] [place] [address] Hodges dressing and cap change;Labs as needed [...] documented as of this encounter Care Teams Psychiatric Therapist Relationship Specialty Start Date End Date Shanna June CNP [address] [place] [address] PCP - General Family Medicine 01/31/20 01/18/22 Rachel Foley MD [address] [facility] [address] PCP - General Family Medicine 01/19/22 06/15/22 Anna Mendez APRN.MACHINE STEAK TENDERIZER [address] [address] PCP - General 06/16/22 07/29/23 Thomas Alas MD [address] [place] [address] PCP - General Family Medicine 07/30/23 Antelmo Davey MD [address] [place] [address] 09/25/19 [place] [address] [place] [address] Consulting General Surgery 09/25/19 Shanna June, BETH [address] [place] [address] Referring Family Medicine 10/19/19 Tj Najera PA [address] [address] Referring Family Medicine 05/13/22 Georgina Barkley MD [address] [place] [address] Home Parenteral Nutrition Provider Gastroenterology 10/14/23 documented as of this encounter
--- OUTSIDE RECORDS SUMMARY | 2024-09-15 16:41 | XMS_ITS | Encounter Summary ---
Author Organization [facility] Address [address] [place] [address] Care Team Providers Care Offshore Wind Turbine Technician Name Role Phone Antelmo Davey MD Unavailable [phone] Deacon Valladares MD Unavailable Shanna June [facility] Unavailable [phone] Tj Najera Unavailable [phone] Anna Mendez APRN.[facility] Primary Care Provider Thomas Alas MD Primary Care Provider [phone] Georgina Barkley MD Unavailable [phone] Source Comments In the event this information is protected by the Federal Confidentiality of Alcohol and Drug AbusePatient Records regulations: The Federal rules restrict any use of the information to criminally investigate or prosecute any alcohol or drug abuse patient.[facility] Encounter Details Date Type Department Care Team (Late st Contact Info) Description 11/06/2022 Patient [facility] [address] [place] [address] Shamika Gutierres MD [address] [place] [address] Appointment Cancellation Request Social History Tobacco Use [...] How often do you attend chur or rastafarian services? 1 to 4 times per year 10/28/2022 Do you belong to any clubs o r organizations such as yazidi groups, unions, fraternal or athletic groups, or [...] PHQ-2 Answer Date Recorded PHQ-2 score 2 11/09/2022 [facility] [place] of Occupat ional Health - Occupational Stress [...] slept in a snf (including now)? No 10/28/2022 Area Deprivation Index Answer Date Nayan rded National Score (1-100), lower number is lower ri sk 64 06/17/2022 State Score (1-10), lower number is lower risk 4 06/17/2022 Data from: https://www.neighborhoodatlas.medicine.[facility].edu/. Last address used for calculation [address] [place] [address] [address] 06/17/2022 Education Answer Date Recorded What is the highest level of school you have completed or the highest degree you have received? Master's degree (e.g., MA, MS, Birgit, MEd, UNCRATER, IVANIA) 10/15/2019 Comments No Sex and Gender [...] 12:30 PM EDT Infusion Center Hematology/Oncology [address] [place] [address] [place] [address] Hodges dressing and cap change;Labs as needed per patient 09/22/2024 12:30 PM EDT Office Visit Gastroenterology 2048 [place] [address] Teacher Vocal, Hpn [address] [place] [id number] HPN / PAGE [id number] 09/22/2024 1:00 PM EDT Office Visit Gastroenterology [address] [phone] Georgina Barkley MD [facility] [address] [place] [address] HPN / PAGE [id number] 09/25/2024 9:00 AM EDT Infusion Center Hematology/Oncology [address] [place] [address] [place] [address] Hodges dressing and cap change;Labs as needed per patient 09/29/2024 10:15 AM EDT Appointment [facility] Endoscopy - ENDO [address] [place] [address] [place] [address] [place] [address] EGD 10/02/2024 9:00 AM EDT Infusion Center Hematology/Oncology [address] [place] [address] [place] [address] Hodges dressing and cap change;Labs as needed per patient 10/09/2024 9:00 AM EDT Infusion Center Hematology/Oncology [address] [place] [address] [place] [address] Hodges dressing and cap change;Labs as needed per patient documented as of this encounter Visit Diagnoses Not on filedocumented in this encounter Additional Health Concerns Infection Onset Date Last Indicated Resolved Time COVID-19 Rule-Out 06/06/2023 06/06/2023 06/06/2023 6:19 PM EDT documented as of this encounter Care Teams Offshore Wind Turbine Technician Relationship Specialty Start Date End Date Anna Mendez APRN.OFFICE ADMINISTRATIVE ASSISTANT [address] [address] PCP - General 06/16/22 07/29/23 Thomas Alas MD [address] [place] [address] PCP - General Family Medicine 07/30/23 Antelmo Davey MD [address] [place] [address] 09/25/19 [place] [address] [place] [address] Consulting General Surgery 09/25/19 Shanna June CNP [address] [place] [address] Referring Family Medicine 10/19/19 Tj Najera PA [address] [address] Referring Family Medicine 05/13/22 Georgina Barkley MD [address] [place] [address] Home Parenteral Nutrition Provider Gastroenterology 10/14/23 documented as of this encounter
--- OUTSIDE RECORDS SUMMARY | 2024-09-15 16:41 | XMS_ITS | Encounter Summary ---
Author Organization [facility] Address [address] [place] [address] Care Team Providers Care Irish Moss Gatherer Name Role Phone Antelmo Davey MD Unavailable [phone] Deacon Valladares MD Unavailable [phone] Shanna June CNP Unavailable [phone] Shanna June CNP Primary Care Provider [phone] Rachel Foley MD Primary Care Provider [phone] Tj Najera Unavailable [phone] Anna Mendez APRN.[facility] Primary Care Provider Thomas Alas MD Primary Care Provider +-4 Georgina Barkley MD Unavailable [phone] Source Comments In the event this information is protected by the Federal Confidentiality of Alcohol and Drug AbusePatient Records regulations: The Federal rules restrict any use of the information to criminally investigate or prosecute any alcohol or drug abuse patient.[facility] Encounter Details Date Type Department Care Team (Late st Contact Info) Description 08/07/2020 Get Medical Advice BMI [facility] RE[place] [address] [facility] [place] [address] [place] [address] [place], [place] [id number] Upcoming Appointment Question Social History Tobacco Use [...] N ot on file 01/21/2020 Data from: https://www.neighborhoodatlas.medicine.[facility].edu/. Last address used for calculation Not on file 01/21/2020 Education Answer Date Recorded What is the highest level of school you have completed or the highest degree you have received? Master's degree (e.g., MA, MS, Birgit, MEd, SUPERVISOR SAMPLE PREPARATION, IVANIA) 10/15/2019 Comments No Sex and Gender [...] 12:30 PM EDT [facility] Hematology/Oncology [address] [place] [address] [place] [address] Carroll dressing and cap change;Labs as needed per patient 09/22/2024 12:30 PM EDT Office Visit Gastroenterology [address] [id number] Lime Kiln Tender, Grupo [address] [place] [address] HPSanchez / PAGE [id number] 09/22/2024 1:00 PM EDT Office Visit Gastroenterology [address] [phone] Georgina Barkley MD [facility] [address] [place], [place] [phone] HPN / PAGE [id number] 09/25/2024 9:00 AM EDT Infusion Center Hematology/Oncology [address] [place] [address] [place] [address] Hodges dressing and cap change;Labs as needed per patient 09/29/2024 10:15 AM EDT Appointment [facility] Endoscopy - ENDO [address] [place] [address] [place] [address] [place] [address] EGD 10/02/2024 9:00 AM EDT Infusion Center Hematology/Oncology [address] [place] [address] [place] [address] Hodges dressing and cap change;Labs as needed per patient 10/09/2024 9:00 AM EDT Infusion Center Hematology/Oncology [address] [place] [address] [place] [address] Hodges dressing and cap change;Labs as needed [...] documented as of this encounter Care Teams Irish Moss Gatherer Relationship Specialty Start Date End Date Shanna June CNP [address] [place] [address] PCP - General Family Medicine 01/31/20 01/18/22 Rachel Foley MD [address] [facility] [place] [address] PCP - General Family Medicine 01/19/22 06/15/22 Anna Mendez APRN.DISTRICT ATTORNEY [address] [address] PCP - General 06/16/22 07/29/23 Thomas Alas MD [address] [place] [address] PCP - General Family Medicine 07/30/23 Antelmo Davey MD [address] [place] [address] 09/25/19 [place] [address] [place] [address] Consulting General Surgery 09/25/19 Shanna June CNP [address] [place] [address] Referring Family Medicine 10/19/19 Tj Najera PA [address] [address] Referring Family Medicine 05/13/22 Georgina Barkley MD [address] [place] [address] Home Parenteral Nutrition Provider Gastroenterology 10/14/23 documented as of this encounter
--- OUTSIDE RECORDS SUMMARY | 2024-09-15 16:41 | XMS_ITS | Encounter Summary ---
Author Organization [facility] Address [address] [place] [address] Care Team Providers Care Full Service Supervisor Name Role Phone Antelmo Davey MD Unavailable Deacon Valladares MD Unavailable [phone] Shanna June CNP Unavailable [phone] Tj Najera Unavailable [phone] Thomas Alas MD Primary Care Provider [phone] Georgina Barkley MD Unavailable [phone] Source Comments In the event this information is protected by the Federal Confidentiality of Alcohol and Drug AbusePatient Records regulations: The Federal rules restrict any use of the information to criminally investigate or prosecute any alcohol or drug abuse patient.[facility] Encounter Details Date Type Department Care Team (Late st Contact Info) Description 03/30/2024 Patient Msg Neurology [address] [place] [address] Pablo Pradhan, PSYD [address] [place] [address] Appointment Request Social History Tobacco Use Types Packs/Day Years Used Date Smoking Tobacco: Never Smokeless Tobacco: Never Alcohol Use Standard Drinks/Week Comments Not Currently 0 (1 standard drink = 0.6 oz pur e alcohol) [facility] Utilities Answer Date Recorded In the [...] Answer Date Recorded PHQ-2 score 3 01/14/2024 [facility] of Occupat ional Health - Occupational Stress [...] any time in the past 12 m [facility], were you homeless or living in a fpc (including now)? No 12/02/2023 Area Deprivation Index Answer Date Nayan rded National Score (1-100), lower number is lower ri sk 64 06/17/2022 State Score (1-10), lower number is lower risk 4 06/17/2022 Data from: https://www.neighborhoodatlas.medicine.[facility].edu/. Last address used for calculation [address] 06/17/2022 Education Answer Date Recorded What is the highest level of school you have completed or the highest degree you have received? Master's degree (e.g., MA, MS, Birgit, MEd, SUPERVISOR LABORATORY, IVANIA) 10/15/2019 Comments No Sex and Gender [...] 09/18/2024 12:30 PM EDT [facility]fusion Center Hematology/Oncology [address] [place] [address] [place] [address] Hodges dressing and cap change;Labs as needed per patient 09/22/2024 12:30 PM EDT Office Visit Gastroenterology [address] [address] Dirt Bike Mechanic, Grupo [address] [place] [address] GRUPO / PAGE [phone] 09/22/2024 1:00 PM EDT Office Visit Gastroenterology [address] [phone] Georgina Barkley MD [facility] [address] 1080606 HPN / PAGE [id number] 09/25/2024 9:00 AM EDT Infusion Center Hematology/Oncology [address] [place] [address] [place] [address] Hodges dressing and cap change;Labs as needed per patient 09/29/2024 10:15 AM EDT Appointment [facility] Endoscopy - ENDO [address] [place] [address] [place] [address] [place] [address] EGD 10/02/2024 9:00 AM EDT Infusion Center Hematology/Oncology [address] [place] [address] [place] [address] Hodges dressing and cap change;Labs as needed per patient 10/09/2024 9:00 AM EDT Infusion Center Hematology/Oncology [address] [place] [address] [place] [address] Hodges dressing and cap change;Labs as needed per patient documented as of this encounter Goals Goal Patient Goal Type Associated Problems Recent Progress Patient-Stated? Author Blood Pressure < 140/90 Blood Pressure 112/76( 025 8:48 AM EDT) No Hannah Devlin MD documented as of this encounter Visit Diagnoses Not on filedocumented in this encounter Care Teams Full Service Supervisor Relationship Specialty Start Date End Date Thomas Alas MD [address] [place] [address] PCP - General Family Medicine 07/30/23 Antelmo Davey MD [address] [place] [address] 09/25/19 [place] [address] [place] [address] Consulting General Surgery 09/25/19 Shanna June, BETH [address] [place] [address] Referring Family Medicine 10/19/19 Tj Najera PA [address] [address] Referring Family Medicine 05/13/22 Georgina Barkley MD [address] [place] [address] Home Parenteral Nutrition Provider Gastroenterology 10/14/23 documented as of this encounter
--- OUTSIDE RECORDS SUMMARY | 2024-09-15 16:41 | XMS_ITS | Encounter Summary ---
Author Organization [facility] Address [address] [place] [address] Care Team Providers Care Rn Urology Name Role Phone Antelmo Davey MD Unavailable Deacon Valladares MD Unavailable [phone] Shanna June CNP Unavailable [phone] Shanna June CNP Primary Care Provider [phone] Rachel Foley MD Primary Care Provider [phone] Tj Najera Unavailable [phone] Anna Mendez APRN.[facility] Primary Care Provider Thomas Alas MD Primary Care Provider +[phone] Georgina Barkley MD Unavailable [phone] Source Comments In the event this information is protected by the Federal Confidentiality of Alcohol and Drug AbusePatient Records regulations: The Federal rules restrict any use of the information to criminally investigate or prosecute any alcohol or drug abuse patient.[facility] Encounter Details Date Type Department Care Team (Late st Contact Info) Description 12/20/2020 Get Medical Advice BMI [facility] REJ [address] [place] [address] [place] [address] [place], [place] [address] RE: Upcoming Appointment Question Social History Tobacco [...] PHQ-2 Answer Date Recorded PHQ-2 score 0 11/27/2020 Hunger Vital Sign Answer Date Recorded Within [...] on file 01/21/2020 Data from: https://www.neighborhoodatlas.medicine.[facility].edu/. Last address used for calculation Not on file 01/21/2020 Education Answer Date Recorded What is the highest level of school you have completed or the highest degree you have received? Master's degree (e.g., MA, MS, Birgit, MEd, GRANITE CHIP TERRAZZO FINISHER, IVANIA) 10/15/2019 Comments No Sex and [...] have Coronavirus / COVID-19? No / Unsure 12/21/2020 11:27 PM EDT documented as of this encounter [...] 12:30 PM EDT [facility]fusion Center Hematology/Oncology [address] [place] [address] [place] [address] Carroll dressing and cap change;Labs as needed per patient 09/22/2024 12:30 PM EDT Office Visit Gastroenterology [address] [address] Ground Crewman Mission Support, Hpn [address] [place] [address] HPN / PAGE [phone] 09/22/2024 1:00 PM EDT Office Visit Gastroenterology [address] [phone] Georgina Barkley MD [facility] [address] [id number] HPN / PAGE [id number] 09/25/2024 9:00 AM EDT Infusion Center Hematology/Oncology [address] [place] [address] [place] [address] Hodges dressing and cap change;Labs as needed per patient 09/29/2024 10:15 AM EDT Appointment [facility] Endoscopy - ENDO [address] [place] [address] [place] [address] [address] [phone] EGD 10/02/2024 9:00 AM EDT Infusion Center Hematology/Oncology [address] [place] [address] [place] [address] Hodges dressing and cap change;Labs as needed per patient 10/09/2024 9:00 AM EDT Infusion Center Hematology/Oncology [address] [place] [address] [place] [address] Hodges dressing and cap change;Labs as needed [...] documented as of this encounter Care Teams Rn Urology Relationship Specialty Start Date End Date Shanna June CNP [address] [place] [address] PCP - General Family Medicine 01/31/20 01/18/22 Rachel Foley MD [address] [place] [address] PCP - General Family Medicine 01/19/22 06/15/22 Anna Mendez APRN.PUBLIC ADMINISTRATION TEACHER [address] [address] PCP - General 06/16/22 07/29/23 Thomas Alas MD [address] [place] [address] PCP - General Family Medicine 07/30/23 Antelmo Davey MD [address] [place] [address] 09/25/19 [place] [address] [place] [address] Consulting General Surgery 09/25/19 Shanna June, BETH [address] [place] [address] Referring Family Medicine 10/19/19 Tj Najera PA [address] [address] Referring Family Medicine 05/13/22 Georgina Barkley MD [address] [place] [address] Home Parenteral Nutrition Provider Gastroenterology 10/14/23 documented as of this encounter
--- OUTSIDE RECORDS SUMMARY | 2024-09-15 16:41 | XMS_ITS | Encounter Summary ---
Author Organization [facility] Address [address] [place] [address] Care Team Providers Care Electrical Engineering Technologist Name Role Phone Antelmo Davey MD Unavailable Deacon Valladares MD Unavailable Shanna June CNP Unavailable [phone] Shanna June CNP Primary Care Provider [phone] Rachel Foley MD Primary Care Provider [phone] Tj Najera Unavailable [phone] Anna Mendez APRN.[facility] Primary Care Provider Thomas Alas MD Primary Care Provider +-[phone] Georgina Barkley MD Unavailable [phone] Source Comments In the event this information is protected by the Federal Confidentiality of Alcohol and Drug AbusePatient Records regulations: The Federal rules restrict any use of the information to criminally investigate or prosecute any alcohol or drug abuse patient.[facility] Encounter Details Date Type Department Care Team (Late st Contact Info) Description 04/02/2020 Get Medical Advice Gastroenterology [address] [address] Kasie Avalos MD [address] [place] [address] RE: Visit Follow Up Question Social History [...] N ot on file 01/21/2020 Data from: https://www.neighborhoodatlas.medicine.[facility].edu/. Last address used for calculation Not on file 01/21/2020 Education Answer Date Recorded What is the highest level of school you have completed or the highest degree you have received? Master's degree (e.g., MA, MS, Birgit, MEd, AIR TRAFFIC SUPERVISOR, IVANIA) 10/15/2019 Comments No Sex and [...] 12:30 PM EDT Infusion Center Hematology/Oncology [address] [place] [address] [place] [address] Carroll dressing and cap change;Labs as needed per patient 09/22/2024 12:30 PM EDT Office Visit Gastroenterology [address] [address] Rayon Coner, Hpn [address] [place] [address] HPN / PAGE [phone] 09/22/2024 1:00 PM EDT Office Visit Gastroenterology [address] [phone] Georgina Barkley MD [facility] [address] [phone] HPN / PAGE [phone] 09/25/2024 9:00 AM EDT Infusion Center Hematology/Oncology [address] [place] [address] [place] [address] Hodges dressing and cap change;Labs as needed per patient 09/29/2024 10:15 AM EDT Appointment [facility] Endoscopy - ENDO [address] [phone] [place] [address] [address] [id number] EGD 10/02/2024 9:00 AM EDT Infusion Center Hematology/Oncology [address] [place] [address] [place] [address] Hodges dressing and cap change;Labs as needed per patient 10/09/2024 9:00 AM EDT Infusion Center Hematology/Oncology [address] [place] [address] [place] [address] Hodges dressing and cap change;Labs as needed [...] documented as of this encounter Care Teams Electrical Engineering Technologist Relationship Specialty Start Date End Date Shanna June CNP [address] [place] [address] PCP - General Family Medicine 01/31/20 01/18/22 Rachel Foley MD [address] [place] [address] PCP - General Family Medicine 01/19/22 06/15/22 Anna Mendez, PACKAGER.DUST COLLECTOR TREATER [address] [place] [address] PCP - General 06/16/22 07/29/23 Thomas Alas MD [address] [place] [address] PCP - General Family Medicine 07/30/23 Antelmo Davey MD [address] [place] [address] 09/25/19 [place] [address] [place] [address] Consulting General Surgery 09/25/19 Shanna June, BETH [address] [place] [address] Referring Family Medicine 10/19/19 Tj Najera PA 112 [facility] [place] [address] Referring Family Medicine 05/13/22 Georgina Barkley MD [address] [place] [address] Home Parenteral Nutrition Provider Gastroenterology 10/14/23 documented as of this encounter
--- OUTSIDE RECORDS SUMMARY | 2024-09-15 16:41 | XMS_ITS | Encounter Summary ---
Author Organization [facility] Address [address] [place] [address] Care Team Providers Care Groundhand Name Role Phone Antelmo Davey MD Unavailable [phone] Deacon Valladares MD Unavailable Shanna June CNP Unavailable [phone] Tj Najera Unavailable [phone] Thomas Alas MD Primary Care Provider [phone] Georgina Barkley MD Unavailable [phone] Source Comments In the event this information is protected by the Federal Confidentiality of Alcohol and Drug AbusePatient Records regulations: The Federal rules restrict any use of the information to criminally investigate or prosecute any alcohol or drug abuse patient.[facility] Encounter Details Date Type Department Care Team (Late st Contact Info) Description 06/05/2024 Get Medical Advice Gastroenterology [address] [address] Georgina Barkley MD [facility] [address] [address] Removal of J tube Social History Tobacco Use Types Packs/Day Years Used Date Smoking Tobacco: Never Smokeless Tobacco: Never Alcohol Use Standard Drinks/Week Comments Not Currently 0 (1 standard drink = 0.6 oz pur e alcohol) [facility] Utilities Answer Date Recorded In the past [...] PHQ-2 Answer Date Recorded PHQ-2 score 2 04/27/2024 [facility] of Occupat ional Health - Occupational Stress [...] slept in a correction (including now)? No 08/08/2023 Housing Stability Vital Sign Answer Eugenio e Recorded In the last 12 months, was t here a time when you were not able to pay the mortgage or rent on time? No 04/12/2024 Number of Times Moved in the Last Year Not on fi le 04/12/2024 At any time in the past 12 m [facility], were you homeless or living in a correction (including now)? No 04/12/2024 Area Deprivation Index Answer Date Nayan rded National Score (1-100), lower number is lower ri sk 64 06/17/2022 State Score (1-10), lower number is lower risk 4 06/17/2022 Data from: https://www.neighborhoodatlas.medicine.[facility].edu/. Last address used for calculation [address] [place] [address] RD [address] 06/17/2022 Education Answer Date Recorded What is the highest level of school you have completed or the highest degree you have received? Master's degree (e.g., MA, MS, Birgit, MEd, RN OSTOMY, IVANIA) 10/15/2019 Comments No Sex and Gender [...] 12:30 PM EDT Infusion Center Hematology/Oncology [address] [place] [address] [place] [address] Carroll dressing and cap change;Labs as needed per patient 09/22/2024 12:30 PM EDT Office Visit Gastroenterology [address] [address] Manager Provider Relations, Hpn [address] [place] [address] HPN / PAGE [phone] 09/22/2024 1:00 PM EDT Office Visit Gastroenterology [address] [phone] Georgina Barkley MD [facility] [address] [id number] HPN / PAGE [phone] 09/25/2024 9:00 AM EDT Infusion Center Hematology/Oncology [address] [place] [address] [place] [address] Hodges dressing and cap change;Labs as needed per patient 09/29/2024 10:15 AM EDT Appointment [facility] Endoscopy - ENDO [address] [place] [address] [place] [address] [place] [address] EGD 10/02/2024 9:00 AM EDT Infusion Center Hematology/Oncology [address] [place] [address] [place] [address] Hodges dressing and cap change;Labs as needed per patient 10/09/2024 9:00 AM EDT Infusion Center Hematology/Oncology [address] [place] [address] [place] [address] Hodges dressing and cap change;Labs as needed per patient documented as of this encounter Goals Goal Patient Goal Type Associated Problems Recent Progress Patient-Stated? Author Blood Pressure < 140/90 Blood Pressure 112/76( 025 8:48 AM EDT) No Hannah Devlin MD documented as of this encounter Visit Diagnoses Not on filedocumented in this encounter Care Teams Groundhand Relationship Specialty Start Date End Date Thomas Alas MD [address] [place] [address] PCP - General Family Medicine 07/30/23 Antelmo Davey MD [address] [place] [address] 09/25/19 [place] [address] [place] [address] Consulting General Surgery 09/25/19 Shanna June CNP [address] [place] [address] Referring Family Medicine 10/19/19 Tj Najera PA [address] [address] Referring Family Medicine 05/13/22 Georgina Barkley MD [address] [place] [address] Home Parenteral Nutrition Provider Gastroenterology 10/14/23 documented as of this encounter
--- OUTSIDE RECORDS SUMMARY | 2024-09-15 16:41 | XMS_ITS | Encounter Summary ---
Author Organization [facility] Address [address] [place] [address] Care Team Providers Care Microbiology Manager Name Role Phone Antelmo Davey MD Unavailable [phone] Deacon Valladares MD Unavailable Shanna June CNP Unavailable +[phone] Shanna June CNP Primary Care Provider [phone] Rachel Foley MD Primary Care Provider [phone] Tj Najera Unavailable [phone] Anna Mendez APRN.[facility] Primary Care Provider Thomas Alas MD Primary Care Provider +-4 Georgina Barkley MD Unavailable [phone] Source Comments In the event this information is protected by the Federal Confidentiality of Alcohol and Drug AbusePatient Records regulations: The Federal rules restrict any use of the information to criminally investigate or prosecute any alcohol or drug abuse patient.[facility] Encounter Details Date Type Department Care Team (Late st Contact Info) Description 04/10/2020 Patient Msg Triage [address] [place] [address] Ernestine Wiseman, EYEGLASS MAKER [address] [place] [address] RE:Consent to treat - please review and respond Social History Tobacco Use Types Packs/Day Years [...] on file 01/21/2020 Data from: https://www.neighborhoodatlas.medicine.[facility].edu/. Last address used for calculation Not on file 01/21/2020 Education Answer Date Recorded What is the highest level of school you have completed or the highest degree you have received? Master's degree (e.g., MA, MS, Birgit, MEd, CHAIR FRAME BUILDER, IVANIA) 10/15/2019 Comments No Sex and Gender [...] have Coronavirus / COVID-19? No / Unsure 04/12/2020 12:38 PM EST documented as of this encounter [...] 12:30 PM EDT Infusion Center Hematology/Oncology [address] [place] [address] [place] [address] Carroll dressing and cap change;Labs as needed per patient 09/22/2024 12:30 PM EDT Office Visit Gastroenterology [address] [address] Stock Checker, Hpn [address] [place] [address] HPN / PAGE [id number] 09/22/2024 1:00 PM EDT Office Visit Gastroenterology [address] [place] [id number] Georgina Barkley MD [facility] [address] [place] [id number] HPN / PAGE [id number] 09/25/2024 9:00 AM EDT Infusion Center Hematology/Oncology [address] [place] [address] [place] [address] Hodges dressing and cap change;Labs as needed per patient 09/29/2024 10:15 AM EDT Appointment [facility] Endoscopy - ENDO [address] [place] [address] [place] [address] [place] [address] EGD 10/02/2024 9:00 AM EDT Infusion Center Hematology/Oncology [address] [place] [address] [place] [address] Hodges dressing and cap change;Labs as needed per patient 10/09/2024 9:00 AM EDT Infusion Center Hematology/Oncology [address] [place] [address] [place] [address] Hodges dressing and cap change;Labs as needed [...] documented as of this encounter Care Teams Microbiology Manager Relationship Specialty Start Date End Date Shanna June CNP [address] [place] [address] PCP - General Family Medicine 01/31/20 01/18/22 Rachel Foley MD [address] [place] [address] PCP - General Family Medicine 01/19/22 06/15/22 Anna Mendez APRN.OIL DISPENSER [address] [address] PCP - General 06/16/22 07/29/23 Thomas Alas MD [address] [place] [address] PCP - General Family Medicine 07/30/23 Antelmo Davey MD [address] [place] [address] 09/25/19 [place] [address] [place] [address] Consulting General Surgery 09/25/19 Shanna June, BETH [address] [place] [address] Referring Family Medicine 10/19/19 Tj Najera PA [address] [address] Referring Family Medicine 05/13/22 Georgina Barkley MD [address] [place] [address] Home Parenteral Nutrition Provider Gastroenterology 10/14/23 documented as of this encounter
--- OUTSIDE RECORDS SUMMARY | 2024-09-15 16:41 | XMS_ITS | Encounter Summary ---
Author Organization [facility] Address [address] [place] [address] Care Team Providers Care Cotton Grader Name Role Phone Antelmo Davey MD Unavailable Deacon Valladares MD Unavailable [phone] Shanna June CNP Unavailable +[phone] Shanna June CNP Primary Care Provider [phone] Rachel Foley MD Primary Care Provider [phone] Tj Najera Unavailable [phone] Anna Mendez APRN.[facility] Primary Care Provider Thomas Alas MD Primary Care Provider +-4 Georgina Barkley MD Unavailable [phone] Source Comments In the event this information is protected by the Federal Confidentiality of Alcohol and Drug AbusePatient Records regulations: The Federal rules restrict any use of the information to criminally investigate or prosecute any alcohol or drug abuse patient.[facility] Encounter Details Date Type Department Care Team (Late st Contact Info) Description 12/20/2020 Get Medical Advice BMI [facility] REJ [address] [place] [address] [place] [address] [place], [place] [id number] RE: Upcoming Appointment Question Social History Tobacco [...] N ot on file 01/21/2020 Data from: https://www.neighborhoodatlas.medicine.[facility].edu/. Last address used for calculation Not on file 01/21/2020 Education Answer Date Recorded What is the highest level of school you have completed or the highest degree you have received? Master's degree (e.g., MA, MS, Birgit, MEd, HORSE TRAINER, IVANIA) 10/15/2019 Comments No Sex and Gender [...] 12:30 PM EDT Infusion Center Hematology/Oncology [address] [place] [address] [place] [address] Carroll dressing and cap change;Labs as needed per patient 09/22/2024 12:30 PM EDT Office Visit Gastroenterology [address] [address] Child Care Worker, Hpn [address] [place] [address] HPN / PAGE [id number] 09/22/2024 1:00 PM EDT Office Visit Gastroenterology [address] [place] [id number] Georgina Barkley MD [facility] [address] [place] [id number] HPN / PAGE [id number] 09/25/2024 9:00 AM EDT Infusion Center Hematology/Oncology [address] [place] [address] [place] [address] Hodges dressing and cap change;Labs as needed per patient 09/29/2024 10:15 AM EDT Appointment [facility] Endoscopy - ENDO [address] [place] [address] [place] [address] [id number] EGD 10/02/2024 9:00 AM EDT Infusion Center Hematology/Oncology [address] [place] [address] [place] [address] Hodges dressing and cap change;Labs as needed per patient 10/09/2024 9:00 AM EDT Infusion Center Hematology/Oncology [address] [place] [address] [place] [address] Hodges dressing and cap change;Labs as needed [...] documented as of this encounter Care Teams Cotton Grader Relationship Specialty Start Date End Date Shanna June CNP [address] [place] [address] PCP - General Family Medicine 01/31/20 01/18/22 Rachel Foley MD [address] [place] [address] PCP - General Family Medicine 01/19/22 06/15/22 Anna Mendez APRN.TOY ELECTRIC TRAIN REPAIRER [address] [address] PCP - General 06/16/22 07/29/23 Thomas Alas MD [address]65 [place] [address] PCP - General Family Medicine 07/30/23 Antelmo Davey MD [address] [place] [address] 09/25/19 [place] [address] [place] [address] Consulting General Surgery 09/25/19 Shanna June, BETH [address] [place] [address] Referring Family Medicine 10/19/19 Tj Najera PA [address] [address] Referring Family Medicine 05/13/22 Georgina Barkley MD [address] [place] [address] Home Parenteral Nutrition Provider Gastroenterology 10/14/23 documented as of this encounter
--- OUTSIDE RECORDS SUMMARY | 2024-09-15 16:41 | XMS_ITS | Encounter Summary ---
Author Organization [facility] Address [facility] [place] [address] Care Team Providers Care X [employer] Electronics Wiring Technician Name Role Phone Antelmo Davey MD Unavailable Deacon Valladares MD Unavailable Shanna June CNP Unavailable [phone] Tj Najera Unavailable [phone] Thomas Alas MD Primary Care Provider [phone] Georgina Barkley MD Unavailable [phone] Source Comments In the event this information is protected by the Federal Confidentiality of Alcohol and Drug AbusePatient Records regulations: The Federal rules restrict any use of the information to criminally investigate or prosecute any alcohol or drug abuse patient.[facility] Encounter Details Date Type Department Care Team (Late st Contact Info) Description 08/16/2024 Patient Mig [facility] Endoscopy - ENDO [address] [place] [address] Provider, Ccf EGD instructions Social History Tobacco Use Types Packs/Day Years Used Date Smoking Tobacco: Never Smokeless Tobacco: Never Alcohol Use Standard Drinks/Week Comments Not Currently 0 (1 standard drink = 0.6 oz pur e alcohol) [facility] Utilities Answer Date Recorded In the [...] any clubs o r organizations such as muslim groups, unions, fraternal or athletic groups, or [...] Answer Date Recorded PHQ-2 score 2 06/19/2024 [facility] [...] slept in a chcf (including now)? No 08/08/2023 Housing Stability Vital Sign Answer Eugenio e Recorded In the last 12 months, was t here a time when you were not able to pay the mortgage or rent on time? No 04/12/2024 Number of Times Moved in the Last Year Not on fi le 04/12/2024 At any time in the past 12 m [facility], were you homeless or living in a chcf (including now)? No 04/12/2024 Area Deprivation Index Answer Date Nayan rded National Score (1-100), lower number is lower ri sk 64 06/17/2022 State Score (1-10), lower number is lower risk 4 06/17/2022 Data from: https://www.neighborhoodatlas.medicine.[facility].edu/. Last address used for calculation [address] 06/17/2022 Education Answer Date Recorded What is the highest level of school you have completed or the highest degree you have received? Master's degree (e.g., MA, MS, Birgit, MEd, TILE LAYER, IVANIA) 10/15/2019 Comments No Sex and [...] Contact Info) Description 09/18/2024 12:[address] [facility] Hematology/Oncology [address] [place] [address] [place] [address] Hodges dressing and cap change;Labs as needed per patient 09/22/2024 12:30 PM EDT Office Visit Gastroenterology [address] [place] [id number] Process Mold Technician, Grupo [address] [place], [place] [id number] HPN / PAGE [id number] 09/22/2024 1:00 PM EDT Office Visit Gastroenterology [address] [place] [phone] Georgina Barkley MD [address] [address] HPN / PAGE [id number] 09/25/2024 9:00 AM EDT Infusion Center Hematology/Oncology [address] [place] [address] [place] [address] Hodges dressing and cap change;Labs as needed per patient 09/29/2024 10:15 AM EDT Appointment [facility] Endoscopy - ENDO [address] [place] [id number] [place] [address] [address] [id number] EGD 10/02/2024 9:00 AM EDT Infusion Center Hematology/Oncology [address] [place] [address] [place] [address] Hodges dressing and cap change;Labs as needed per patient 10/09/2024 9:00 AM EDT Infusion Center Hematology/Oncology [address] [place] [address] [place] [address] Hodges dressing and cap change;Labs as needed per patient documented as of this encounter Goals Goal Patient Goal Type Associated Problems Recent Progress Patient-Stated? Author Blood Pressure < 140/90 Blood Pressure 112/76( 025 8:48 AM EDT) No Hannah Devlin MD documented as of this encounter Visit Diagnoses Not on filedocumented in this encounter Care Teams X Ray Electronics Wiring Technician Relationship Specialty Start Date End Date Thomas Alas MD [address] [place] [address] PCP - General Family Medicine 07/30/23 Antelmo Davey MD [address] [place] [address] 09/25/19 [place] [address] [address] [phone] Consulting General Surgery 09/25/19 Shanna June CNP [address] [place] [address] Referring Family Medicine 10/19/19 Tj Najera PA [address] [address] Referring Family Medicine 05/13/22 Georgina Barkley MD [address] [place] [address] Home Parenteral Nutrition Provider Gastroenterology 10/14/23 documented as of this encounter
--- OUTSIDE RECORDS SUMMARY | 2024-09-15 16:41 | XMS_ITS | Encounter Summary ---
Author Organization [facility] Address [address] [place] [address] Care Team Providers Care Laborer Laboratory Name Role Phone Antelmo Davey MD Unavailable Deacon Valladares MD Unavailable [phone] Shanna June CNP Unavailable [phone] Shanna June CNP Primary Care Provider [phone] Rachel Foley MD Primary Care Provider [phone] Tj Najera Unavailable [phone] Anna Mendez APRN.[facility] Primary Care Provider Thomas Alas MD Primary Care Provider +-4 Georgina Barkley MD Unavailable [phone] Source Comments In the event this information is protected by the Federal Confidentiality of Alcohol and Drug AbusePatient Records regulations: The Federal rules restrict any use of the information to criminally investigate or prosecute any alcohol or drug abuse patient.[facility] Encounter Details Date Type Department Care Team (Late st Contact Info) Description 08/07/2020 Get Medical Advice BMI [facility] REJ [address] [place] [address] [place] [address] [place], [place] [phone] Upcoming Appointment Question Social History Tobacco Use [...] N ot on file 01/21/2020 Data from: https://www.neighborhoodatlas.medicine.[facility].edu/. Last address used for calculation Not on file 01/21/2020 Education Answer Date Recorded What is the highest level of school you have completed or the highest degree you have received? Master's degree (e.g., MA, MS, Birgit, MEd, PROJECT ARCHIVIST, IVANIA) 10/15/2019 Comments No Sex and Gender [...] EDT [facility] Hematology/Oncology [address] [place] [address] [place] [address] Carroll dressing and cap change;Labs as needed per patient 09/22/2024 12:30 PM EDT Office Visit Gastroenterology [address] [place] [id number] Mine Manager, Grupo [address] [place] [address] HPSanchez / PAGE [id number] 09/22/2024 1:00 PM EDT Office Visit Gastroenterology [address] [place] [phone] Georgina Barkley MD [facility] [address] [place], [place] [address] HPN / PAGE [id number] 09/25/2024 9:00 AM EDT Infusion Center Hematology/Oncology [address] [place] [address] [place] [address] Hodges dressing and cap change;Labs as needed per patient 09/29/2024 10:15 AM EDT Appointment [facility] Endoscopy - ENDO [address] [place] [address] [place] [address] [place] [address] EGD 10/02/2024 9:00 AM EDT Infusion Center Hematology/Oncology [address] [place] [address] [place] [address] Hodges dressing and cap change;Labs as needed per patient 10/09/2024 9:00 AM EDT Infusion Center Hematology/Oncology [address] [place] [address] [place] [address] Hodges dressing and cap change;Labs as needed [...] documented as of this encounter Care Teams Laborer Laboratory Relationship Specialty Start Date End Date Shanna Jnue CNP [address] [place] [address] PCP - General Family Medicine 01/31/20 01/18/22 Rachel Foley MD [address] [facility] [place] [address] PCP - General Family Medicine 01/19/22 06/15/22 Anna Mendez APRN.FROZEN MEAT CUTTER [address] [address] PCP - General 06/16/22 07/29/23 Thomas Alas MD [address] [place] [address] PCP - General Family Medicine 07/30/23 Antelmo Davey MD [address] [place] [address] 09/25/19 [place] [address] [place] [address] Consulting General Surgery 09/25/19 Shanna June CNP [address] [place] [address] Referring Family Medicine 10/19/19 Tj Najera PA [address] [address] Referring Family Medicine 05/13/22 Georgina Barkley MD [address] [place] [address] Home Parenteral Nutrition Provider Gastroenterology 10/14/23 documented as of this encounter
--- OUTSIDE RECORDS SUMMARY | 2024-09-15 16:41 | XMS_ITS | Encounter Summary ---
Author Organization [facility] Address [address] [place] [address] Care Team Providers Care Industrial Cafeteria Manager Name Role Phone Antelmo Davey MD Unavailable Deacon Valladares MD Unavailable [phone] Shanna June CNP Unavailable [phone] Shanna June CNP Primary Care Provider [phone] Rachel Foley MD Primary Care Provider [phone] Tj Najera Unavailable [phone] Anna Mendez APRN.[facility] Primary Care Provider Thomas Alas MD Primary Care Provider +-4 Georgina Barkley MD Unavailable [phone] Source Comments In the event this information is protected by the Federal Confidentiality of Alcohol and Drug AbusePatient Records regulations: The Federal rules restrict any use of the information to criminally investigate or prosecute any alcohol or drug abuse patient.[facility] Encounter Details Date Type Department Care Team (Late st Contact Info) Description 12/19/2020 Get Medical Advice BMI [facility] REJ [address] [facility] [place] [address] [place] [address] [place], [place] [phone] Upcoming Appointment Question Social History Tobacco Use [...] on file 01/21/2020 Data from: https://www.neighborhoodatlas.medicine.[facility].edu/. Last address used for calculation Not on file 01/21/2020 Education Answer Date Recorded What is the highest level of school you have completed or the highest degree you have received? Master's degree (e.g., MA, MS, Birgit, MEd, MOTORMAN/WOMAN, IVANIA) 10/15/2019 Comments No Sex and Gender [...] 12:30 PM EDT Infusion Center Hematology/Oncology [address] [place] [address] [place] [address] Carroll dressing and cap change;Labs as needed per patient 09/22/2024 12:30 PM EDT Office Visit Gastroenterology [address] [address] Furs Salesperson, Hpn [address] [place] [address] HPN / PAGE [id number] 09/22/2024 1:00 PM EDT Office Visit Gastroenterology [address] [place] [phone] Georgina Barkley MD [facility] [address] [place] [address] [id number] HPN / PAGE [id number] 09/25/2024 9:00 AM EDT Infusion Center Hematology/Oncology [address] [place] [address] [place] [address] Hodges dressing and cap change;Labs as needed per patient 09/29/2024 10:15 AM EDT Appointment [facility] Endoscopy - ENDO [address] [place] [address] [place] [address] [place] [address] EGD 10/02/2024 9:00 AM EDT Infusion Center Hematology/Oncology [address] [place] [address] [place] [address] Hodges dressing and cap change;Labs as needed per patient 10/09/2024 9:00 AM EDT Infusion Center Hematology/Oncology [address] [place] [address] [place] [address] Hodges dressing and cap change;Labs as needed [...] documented as of this encounter Care Teams Industrial Cafeteria Manager Relationship Specialty Start Date End Date Shanna June CNP [address] [place] [address] PCP - General Family Medicine 01/31/20 01/18/22 Rachel Foley MD 521 [place] [address] PCP - General Family Medicine 01/19/22 06/15/22 Anna Mendez APRN.SCHOOL MANAGER [address] [address] PCP - General 06/16/22 07/29/23 Thomas Alas MD [address] [place] [address] PCP - General Family Medicine 07/30/23 Antelmo Davey MD 521 [place] [address] 09/25/19 [place] [address] [place] [address] Consulting General Surgery 09/25/19 Shanna June, BETH [address] [place] [address] Referring Family Medicine 10/19/19 Tj Najera PA [address] [address] Referring Family Medicine 05/13/22 Georgina Barkley MD [address] [place] [address] Home Parenteral Nutrition Provider Gastroenterology 10/14/23 documented as of this encounter
--- OUTSIDE RECORDS SUMMARY | 2024-09-15 16:41 | XMS_ITS | Encounter Summary ---
Author Organization [facility] Address [address] [place] [address] Care Team Providers Care Insecticide Mixer Name Role Phone Antelmo Davey MD Unavailable Deacon Valladares MD Unavailable Shanna June [facility] Unavailable [phone] Tj Najera Unavailable [phone] Anna Mendez APRN.[facility] Primary Care Provider Thomas Alas MD Primary Care Provider [phone] Georgina Barkley MD Unavailable [phone] Source Comments In the event this information is protected by the Federal Confidentiality of Alcohol and Drug AbusePatient Records regulations: The Federal rules restrict any use of the information to criminally investigate or prosecute any alcohol or drug abuse patient.[facility] Encounter Details Date Type Department Care Team (Late st Contact Info) Description 11/12/2022 Patient Msg Nutrition Therapy [address] [id number] Provider, Ccf Request an Appointment Social History Tobacco Use [...] How often do you attend chur or pentecostalism services? 1 to 4 times per year [...] Answer Date Recorded PHQ-2 score 2 11/12/2022 [facility] - Occupational Stress Questionnaire Answer Date [...] slept in a fpc (including now)? No 10/28/2022 Area Deprivation Index Answer Date Nayan rded National Score (1-100), lower number is lower ri sk 64 06/17/2022 State Score (1-10), lower number is lower risk 4 06/17/2022 Data from: https://www.neighborhoodatlas.medicine.[facility].edu/. Last address used for calculation [id number] 46 06/17/2022 Education Answer Date Recorded What is the highest level of school you have completed or the highest degree you have received? Master's degree (e.g., MA, MS, Birgit, MEd, FARM EQUIPMENT SERVICE TECHNICIAN, IVANIA) 10/15/2019 Comments No Sex and [...] hearing? Answer Date of Assessment Author No 11/08/2022 12:46 PM EDT Loretta Ceron, RN * Are you blind or do you have serious difficulty seeing, even when wearing glasses? Answer Date of Assessment Author No 11/08/2022 12:46 PM EDT Loretta Ceron RN * Do you have serious difficulty walking or climbing stairs? Answer Date of Assessment Author No 11/08/2022 12:46 PM EDT Loretta Ceron RN * Do you have difficulty dressing or bathing? Answer Date of Assessment Author No 11/08/2022 12:46 PM EDT Loretta Ceron RN * Because of a physical, mental, or emotional condition, do you have difficulty doing errands alone such as visiting a doctor's office or shopping? Answer Date of Assessment Author No 11/08/2022 12:46 PM EDT Loretta Ceron RN documented as of this encounter Mental Status * Because of a physical, mental, or emotional condition, do you have serious difficulty concentrating, remembering, or making decisions? Answer Entry Date Author No 11/08/2022 12:46 PM EDT Loretta Ceron RN documented in this encounter Plan of Treatment Upcoming Encounters Date Type Department Care Team (Latest Contact Info) Description 09/18/2024 12:30 PM EDT Infusion Center Hematology/Oncology [address] [place] [address] [place] [address] Hodges dressing and cap change;Labs as needed per patient 09/22/2024 12:30 PM EDT Office Visit Gastroenterology [address] [id number] It Coordinator, Hpn [address] [id number] HPN / PAGE [id number] 09/22/2024 1:00 PM EDT Office Visit Gastroenterology [address] [id number] Georgina Barkley MD [facility] [address] [place] [address] HPN / PAGE [id number] 09/25/2024 9:00 AM EDT Infusion Center Hematology/Oncology [address] [place] [address] [place] [address] Hodges dressing and cap change;Labs as needed per patient 09/29/2024 10:15 AM EDT Appointment [facility] Endoscopy - ENDO [address] [place] [address] [place] [address] [place] [address] EGD 10/02/2024 9:00 AM EDT Infusion Center Hematology/Oncology [address] [place] [address] [place] [address] Hodges dressing and cap change;Labs as needed per patient 10/09/2024 9:00 AM EDT Infusion Center Hematology/Oncology [address] [place] [address] [place] [address] Hodges dressing and cap change;Labs as needed per patient documented as of this encounter Visit Diagnoses Not on filedocumented in this encounter Additional Health Concerns Infection Onset Date Last Indicated Resolved Time COVID-19 Rule-Out 06/06/2023 06/06/2023 06/06/2023 6:19 PM EDT documented as of this encounter Care Teams Insecticide Mixer Relationship Specialty Start Date End Date Anna Mendez APRN.HELP DESK AGENT [address] [place] [address] PCP - General 06/16/22 07/29/23 Thomas Alas MD [address] [place] [address] PCP - General Family Medicine 07/30/23 Antelmo Davey MD [address] [place] [address] 09/25/19 [place] [address] [place] [address] Consulting General Surgery 09/25/19 Shanna June CNP [address] [place] [address] Referring Family Medicine 10/19/19 Tj Najera PA [address] [address] Referring Family Medicine 05/13/22 Georgina Barkley MD [address] [place] [address] Home Parenteral Nutrition Provider Gastroenterology 10/14/23 documented as of this encounter
--- OUTSIDE RECORDS SUMMARY | 2024-09-15 16:41 | XMS_ITS | Encounter Summary ---
Author Organization [facility] Address [address] [place] [address] Care Team Providers Care Forensic Psychiatrist Name Role Phone Antelmo Davey MD Unavailable Deacon Valladares MD Unavailable [phone] Shanna June CNP Unavailable [phone] Tj Najera Unavailable [phone] Thomas Alas MD Primary Care Provider [phone] Georgina Barkley MD Unavailable [phone] Source Comments In the event this information is protected by the Federal Confidentiality of Alcohol and Drug AbusePatient Records regulations: The Federal rules restrict any use of the information to criminally investigate or prosecute any alcohol or drug abuse patient.[facility] Encounter Details Date Type Department Care Team (Late st Contact Info) Description 08/18/2024 Patient Msg Hematology/Oncology [address] [facility] [address] Provider, Ccf Appointment Cancellation Request Social History Tobacco Use Types Packs/Day Years Used Date Smoking Tobacco: Never Smokeless Tobacco: Never Alcohol Use Standard Drinks/Week Comments Not Currently 0 (1 standard drink = 0.6 oz pur e alcohol) [facility] Utilities Answer Date Recorded In [...] any clubs o r organizations such as yarsani groups, unions, fraternal or athletic groups, or [...] Answer Date Recorded PHQ-2 score 2 08/21/2024 [facility] of Occupat ional Health - [...] any time in the past 12 m [facility], were you homeless or living in a jail (including now)? No 04/12/2024 Area Deprivation Index Answer Date Nayan rded National Score (1-100), lower number is lower ri sk 64 06/17/2022 State Score (1-10), lower number is lower risk 4 06/17/2022 Data from: https://www.neighborhoodatlas.medicine.[facility].edu/. Last address used for calculation [address] 06/17/2022 Education Answer Date Recorded What is the highest level of school you have completed or the highest degree you have received? Master's degree (e.g., MA, MS, Birgit, MEd, SUPERVISOR LIVESTOCK YARD, IVANIA) 10/15/2019 Comments No Sex and Gender [...] Assessment Author No 04/13/2024 2:05 PM Sandra Corodba RN * Do you have serious difficulty [...] Contact Info) Description 09/18/2024 12:30 PM EDT [facility] Hematology/Oncology [address] [place] [address] [place] [address] Hodges dressing and cap change;Labs as needed per patient 09/22/2024 12:30 PM EDT Office Visit Gastroenterology [address] [phone] Rn Spine, Grupo [address] [place], [place] [phone] HPN / PAGE [phone] 09/22/2024 1:00 PM EDT Office Visit Gastroenterology [address] [phone] Georgina Barkely MD [address] [address] HPN / PAGE [phone] 09/25/2024 9:00 AM EDT Infusion Center Hematology/Oncology [address] [place] [address] [place] [address] Hodges dressing and cap change;Labs as needed per patient 09/29/2024 10:15 AM EDT Appointment [facility] Endoscopy - ENDO [address] [phone] [place] [address] [phone] EGD 10/02/2024 9:00 AM EDT Infusion Center Hematology/Oncology [address] [place] [address] [place] [address] Hodges dressing and cap change;Labs as needed per patient 10/09/2024 9:00 AM EDT Infusion Center Hematology/Oncology [address] [place] [address] [place] [address] Hodges dressing and cap change;Labs as needed per patient documented as of this encounter Goals Goal Patient Goal Type Associated Problems Recent Progress Patient-Stated? Author Blood Pressure < 140/90 Blood Pressure 112/76( 025 8:48 AM EDT) No Hannah Devlin MD documented as of this encounter Visit Diagnoses Not on filedocumented in this encounter Care Teams Forensic Psychiatrist Relationship Specialty Start Date End Date Thomas Alas MD [address] [place] [address] PCP - General Family Medicine 07/30/23 Antelmo Davey MD [address] [place] [address] 09/25/19 [place] [address] [phone] Consulting General Surgery 09/25/19 Shanna June CNP [address] [place] [address] Referring Family Medicine 10/19/19 Tj Najera PA [address] [address] Referring Family Medicine 05/13/22 Georgina Barkley MD [address] [place] [address] Home Parenteral Nutrition Provider Gastroenterology 10/14/23 documented as of this encounter
--- OUTSIDE RECORDS SUMMARY | 2024-09-15 16:41 | XMS_ITS | Encounter Summary ---
Author Organization [facility] Address [address] [place] [address] Care Team Providers Care Office Inspector Name Role Phone Antelmo Davey MD Unavailable Deacon Valladares MD Unavailable [phone] Shanna June [facility] Unavailable [phone] Tj Najera Unavailable [phone] Anna Mendez APRN.[facility] Primary Care Provider Thomas Alas MD Primary Care Provider [phone] Georgina Barkley MD Unavailable [phone] Source Comments In the event this information is protected by the Federal Confidentiality of Alcohol and Drug AbusePatient Records regulations: The Federal rules restrict any use of the information to criminally investigate or prosecute any alcohol or drug abuse patient.[facility] Encounter Details Date Type Department Care Team (Late st Contact Info) Description 12/11/2022 Patient Msg Gastroenterology [address] [phone] Kasie Avalos MD [address] [place] [address] Appointment Request Social History Tobacco Use Types [...] How often do you attend chur or roman catholic services? 1 to 4 times per year 10/28/2022 Do you belong to any clubs o r organizations such as scientology groups, unions, fraternal or athletic groups, or [...] Answer Date Recorded PHQ-2 score 2 11/12/2022 [facility] [place] of Occupat ional Health - Occupational Stress [...] is lower risk 4 06/17/2022 Data from: https://www.neighborhoodatlas.medicine.[facility].edu/. Last address used for calculation [address] [place] [address] RD [address] 06/17/2022 Education Answer Date Recorded What is the highest level of school you have completed or the highest degree you have received? Master's degree (e.g., MA, MS, Birgit, MEd, ARCHITECTURAL DRAFTER, IVANIA) 10/15/2019 Comments No Sex and Gender [...] Assessment Author No 12/09/2022 3:49 PM EDT Maulik Abdalla RN * Do you have difficulty dressing or bathing? Answer Date of Assessment Author No 12/09/2022 3:49 PM EDT Sharron Abadlla RN * Because of a physical, mental, [...] 12:30 PM EDT Infusion Center Hematology/Oncology [address] [place] [address] [place] [address] Hodges dressing and cap change;Labs as needed per patient 09/22/2024 12:30 PM EDT Office Visit Gastroenterology [address] [place] [address] Nurse Epidemiologist, Hpn [address] [place] [phone] HPN / PAGE [id number] 09/22/2024 1:00 PM EDT Office Visit Gastroenterology [address] [phone] Georgina Barkley MD [facility] [address] [place], [place] [phone] HPN / PAGE [id number] 09/25/2024 9:00 AM EDT Infusion Center Hematology/Oncology [address] [place] [address] [place] [address] Hodges dressing and cap change;Labs as needed per patient 09/29/2024 10:15 AM EDT Appointment [facility] Endoscopy - ENDO [address] [place] [address] [place] [address] [place] [address] EGD 10/02/2024 9:00 AM EDT Infusion Center Hematology/Oncology [address] [place] [address] [place] [address] Hodges dressing and cap change;Labs as needed per patient 10/09/2024 9:00 AM EDT Infusion Center Hematology/Oncology [address] [place] [address] [place] [address] Hodges dressing and cap change;Labs as needed per patient documented as of this encounter Visit Diagnoses Not on filedocumented in this encounter Additional Health Concerns Infection Onset Date Last Indicated Resolved Time COVID-19 Rule-Out 06/06/2023 06/06/2023 06/06/2023 6:19 PM EDT documented as of this encounter Care Teams Office Inspector Relationship Specialty Start Date End Date Anna Mendez, CARBON BRUSHER ASSEMBLER.TRAFFIC SIGN ERECTION SUPERVISOR [address] [address] PCP - General 06/16/22 07/29/23 Thomas Alas MD [address] [place] [address] PCP - General Family Medicine 07/30/23 Antelmo Davey MD [address] [place] [address] 09/25/19 [place] [address] [place] [address] Consulting General Surgery 09/25/19 Shanna June CNP [address] [place] [address] Referring Family Medicine 10/19/19 Tj Najera PA 112 [facility] [address] [place] [address] Referring Family Medicine 05/13/22 Georgina Barkley MD [address] [place] [address] Home Parenteral Nutrition Provider Gastroenterology 10/14/23 documented as of this encounter
--- OUTSIDE RECORDS SUMMARY | 2024-09-15 16:41 | XMS_ITS | Encounter Summary ---
Author Organization [facility] Address [address] [place] [address] Care Team Providers Care Patient Carrier Name Role Phone Antelmo Davey MD Unavailable [phone] Deacon Valladares MD Unavailable Shanna June CNP Unavailable [phone] Shanna June CNP Primary Care Provider [phone] Rachel Foley MD Primary Care Provider [phone] Tj Najera Unavailable [phone] Anna Mendez APRN.[facility] Primary Care Provider Thomas Alas MD Primary Care Provider +[phone] Georgina Barkley MD Unavailable [phone] Source Comments In the event this information is protected by the Federal Confidentiality of Alcohol and Drug AbusePatient Records regulations: The Federal rules restrict any use of the information to criminally investigate or prosecute any alcohol or drug abuse patient.[facility] Encounter Details Date Type Department Care Team (Late st Contact Info) Description 05/10/2020 Get Medical Advice Gastroenterology [address] [address] Kasie Avalos MD [address] [place] [address] RE: Visit Follow Up Question Social History [...] on file 01/21/2020 Data from: https://www.neighborhoodatlas.medicine.[facility].edu/. Last address used for calculation Not on file 01/21/2020 Education Answer Date Recorded What is the highest level of school you have completed or the highest degree you have received? Master's degree (e.g., MA, MS, Birgit, MEd, POLITICAL AIDE, IVANIA) 10/15/2019 Comments No Sex and Gender [...] 12:30 PM EDT Infusion Center Hematology/Oncology [address] [place] [address] [place] [address] Carroll dressing and cap change;Labs as needed per patient 09/22/2024 12:30 PM EDT Office Visit Gastroenterology [address] [address] Ophthalmic Asst, Hpn [address] [place] [address] HPN / PAGE [id number] 09/22/2024 1:00 PM EDT Office Visit Gastroenterology [address] [phone] Georgina Barkley MD [facility] [address] [id number] HPN / PAGE [id number] 09/25/2024 9:00 AM EDT Infusion Center Hematology/Oncology [address] [place] [address] [place] [address] Hodges dressing and cap change;Labs as needed per patient 09/29/2024 10:15 AM EDT Appointment [facility] Endoscopy - ENDO [address] [place] [address] [place] [address] [place] [address] EGD 10/02/2024 9:00 AM EDT Infusion Center Hematology/Oncology [address] [place] [address] [place] [address] Hodges dressing and cap change;Labs as needed per patient 10/09/2024 9:00 AM EDT Infusion Center Hematology/Oncology [address] [place] [address] [place] [address] Hodges dressing and cap change;Labs as needed [...] documented as of this encounter Care Teams Patient Carrier Relationship Specialty Start Date End Date Shanna June CNP [address] [place] [address] PCP - General Family Medicine 01/31/20 01/18/22 Rachel Foley MD [address] [place] [address] PCP - General Family Medicine 01/19/22 06/15/22 Anna Mendez APRN.COTTON WASHER [address] [address] PCP - General 06/16/22 07/29/23 Thomas Alas MD [address] [place] [address] PCP - General Family Medicine 07/30/23 Antelmo Davey MD [address] [place] [address] 09/25/19 [place] [address] [place] [address] Consulting General Surgery 09/25/19 Shanna June, BETH [address] [place] [address] Referring Family Medicine 10/19/19 Tj Najera PA [address] [address] Referring Family Medicine 05/13/22 Georgina Barkley MD [address] [place] [address] Home Parenteral Nutrition Provider Gastroenterology 10/14/23 documented as of this encounter
--- OUTSIDE RECORDS SUMMARY | 2024-09-15 16:41 | XMS_ITS | Encounter Summary ---
Author Organization [facility] Address [address] [place] [address] Care Team Providers Care Upward Bound Director Name Role Phone Antelmo Davey MD Unavailable [phone] Deacon Valladares MD Unavailable [phone] Shanna June CNP Unavailable [phone] Shanna June CNP Primary Care Provider [phone] Rachel Foley MD Primary Care Provider [phone] Tj Najera Unavailable [phone] Anna Mendez APRN.[facility] Primary Care Provider Thomas Alas MD Primary Care Provider +-[phone] Georgina Barkley MD Unavailable [phone] Source Comments In the event this information is protected by the Federal Confidentiality of Alcohol and Drug AbusePatient Records regulations: The Federal rules restrict any use of the information to criminally investigate or prosecute any alcohol or drug abuse patient.[facility] Encounter Details Date Type Department Care Team (Late st Contact Info) Description 04/10/2020 Get Medical Advice General Surgery [address] [place] [address] [place] [address] [place] [phone] RE: Test Result Question Social History Tobacco [...] N ot on file 01/21/2020 Data from: https://www.neighborhoodatlas.medicine.[facility].edu/. Last address used for calculation Not on file 01/21/2020 Education Answer Date Recorded What is the highest level of school you have completed or the highest degree you have received? Master's degree (e.g., MA, MS, Birgit, MEd, BOAT OUTFITTER, IVANIA) 10/15/2019 Comments No Sex and Gender [...] 09/18/2024 12:30 PM EDT Infusion Center Hematology/Oncology [address] [place] [address] [place] [address] Carroll dressing and cap change;Labs as needed per patient 09/22/2024 12:30 PM EDT Office Visit Gastroenterology [address] [address] Air Hammer Stripper, Hpn [address] [place] [address] HPN / PAGE [id number] 09/22/2024 1:00 PM EDT Office Visit Gastroenterology [address] [phone] Georgina Barkley MD [facility] [address] [id number] HPN / PAGE [phone] 09/25/2024 9:00 AM EDT Infusion Center Hematology/Oncology [address] [place] [address] [place] [address] Hodges dressing and cap change;Labs as needed per patient 09/29/2024 10:15 AM EDT Appointment [facility] Endoscopy - ENDO [address] [place] [address] [place] [address] [place] [address] EGD 10/02/2024 9:00 AM EDT Infusion Center Hematology/Oncology [address] [place] [address] [place] [address] Hodges dressing and cap change;Labs as needed per patient 10/09/2024 9:00 AM EDT Infusion Center Hematology/Oncology [address] [place] [address] [place] [address] Hodges dressing and cap change;Labs as needed [...] documented as of this encounter Care Teams Upward Bound Director Relationship Specialty Start Date End Date Shanna June CNP [address] [place] [address] PCP - General Family Medicine 01/31/20 01/18/22 Rachel Foley MD [address] [place] [address] PCP - General Family Medicine 01/19/22 06/15/22 Anna Mendez APRN.CMM PROGRAMMER [address] [address] PCP - General 06/16/22 07/29/23 Thomas Alas MD [address] [place] [address] PCP - General Family Medicine 07/30/23 Antelmo Davey MD 521 [place] [address] 09/25/19 [place] [address] [place] [address] Consulting General Surgery 09/25/19 Shanna June, BETH [address] [place] [address] Referring Family Medicine 10/19/19 Tj Najera PA [address] [address] Referring Family Medicine 05/13/22 Georgina Barkley MD [address] [place] [address] Home Parenteral Nutrition Provider Gastroenterology 10/14/23 documented as of this encounter
--- OUTSIDE RECORDS SUMMARY | 2024-09-15 16:41 | XMS_ITS | Encounter Summary ---
Author Organization [facility] Address [address] [place] [address] Care Team Providers Care Coremaker Floor Name Role Phone Antelmo Davey MD Unavailable [phone] Deacon Valladares MD Unavailable Shanna June CNP Unavailable [phone] Tj Najera Unavailable [phone] Thomas Alas MD Primary Care Provider [phone] Georgina Barkley MD Unavailable [phone] Source Comments In the event this information is protected by the Federal Confidentiality of Alcohol and Drug AbusePatient Records regulations: The Federal rules restrict any use of the information to criminally investigate or prosecute any alcohol or drug abuse patient.[facility] Encounter Details Date Type Department Care Team (Late st Contact Info) Description 08/14/2024 Get Medical Advice Gastroenterology [address] [address] Georgina Barkley MD [facility] [address] [address] Fluids and TPN issues with [place] Social History Tobacco Use Types Packs/Day Years Used Date Smoking Tobacco: Never Smokeless Tobacco: Never Alcohol Use Standard Drinks/Week Comments Not Currently 0 (1 standard drink = 0.6 oz pur e alcohol) [facility] Utilities Answer Date Recorded In the [...] How often do you attend chur or synagogue services? 1 to 4 times per year 10/28/2022 Do you belong to any clubs o r organizations such as mosque groups, unions, fraternal or athletic groups, or [...] Answer Date Recorded PHQ-2 score 2 06/19/2024 [facility] of Occupat ional Health - Occupational Stress [...] any time in the past 12 m [facility], were you homeless or living in a jail (including now)? No 04/12/2024 Area Deprivation Index Answer Date Nayan rded National Score (1-100), lower number is lower ri sk 64 06/17/2022 State Score (1-10), lower number is lower risk 4 06/17/2022 Data from: https://www.neighborhoodatlas.medicine.[facility].edu/. Last address used for calculation [address] [place] [address] RD 46 06/17/2022 Education Answer Date Recorded What is the highest level of school you have completed or the highest degree you have received? Master's degree (e.g., MA, MS, Birgit, MEd, BRUSHING MACHINE OPERATOR, IVANIA) 10/15/2019 Comments No Sex [...] encounter Miscellaneous Notes * Telephone Encounter - Jen Emery RN - 08/15/2024 7:59 AM EDT Patient has been identified by name and date of : Yes Pt states that she had multiple episodes of chills with infusions yesterday. Pt states that her temperature was 99.0 degrees F when she took it. Pt instructed to go to the nearest ED for eval. Pt states that she will go to [place], as that is the closet [facility] facility to her. Jen Emery RN documented in this encounter Plan of Treatment Upcoming Encounters Date Type Department Care Team (Latest Contact Info) Description 09/18/2024 12:30 PM EDT Infusion Center Hematology/Oncology [address] [place] [address] [place] [address] Hodges dressing and cap change;Labs as needed per patient 09/22/2024 12:30 PM EDT Office Visit Gastroenterology [address] [address] Security Assistant, Hpn [address] [place] [address] HPN / PAGE [id number] 09/22/2024 1:00 PM EDT Office Visit Gastroenterology [address] [address] Georgina Barkley MD [facility] [address] [place] [address] HPN / PAGE [id number] 09/25/2024 9:00 AM EDT Infusion Center Hematology/Oncology [address] [place] [address] [place] [address] Hodges dressing and cap change;Labs as needed per patient 09/29/2024 10:15 AM EDT Appointment [facility] Endoscopy - ENDO [id number] [place] [address] [place] [address] [place] [address] EGD 10/02/2024 9:00 AM EDT Infusion Center Hematology/Oncology [address] [place] [address] [place] [address] Hodges dressing and cap change;Labs as needed per patient 10/09/2024 9:00 AM EDT Infusion Center Hematology/Oncology [address] [place] [address] [place] [address] Hodges dressing and cap change;Labs as needed per patient documented as of this encounter Goals Goal Patient Goal Type Associated Problems Recent Progress Patient-Stated? Author Blood Pressure < 140/90 Blood Pressure 112/76( 025 8:48 AM EDT) No Hannah Devlin MD documented as of this encounter Visit Diagnoses Not on filedocumented in this encounter Care Teams Coremaker Floor Relationship Specialty Start Date End Date Thomas Alas MD [address] [facility] [place] [address] PCP - General Family Medicine 07/30/23 Antelmo Davey MD [address] [place] [address] 09/25/19 [place] [address] [place] [address] Consulting General Surgery 09/25/19 Shanna June CNP [address] [place] [address] Referring Family Medicine 10/19/19 Tj Najera PA [address] [address] Referring Family Medicine 05/13/22 Georgina Barkley MD [address] [place] [address] Home Parenteral Nutrition Provider Gastroenterology 10/14/23 documented as of this encounter
--- OUTSIDE RECORDS SUMMARY | 2024-09-15 16:41 | XMS_ITS | Encounter Summary ---
Author Organization [facility] Address [address] [place] [address] Care Team Providers Care Phlebotomy Specialist Name Role Phone Antelmo Davey MD Unavailable [phone] Deacon Valladares MD Unavailable Shanna June CNP Unavailable [phone] Shanna June CNP Primary Care Provider [phone] Rachel Foley MD Primary Care Provider [phone] Tj Najera Unavailable [phone] Anna Mendez APRN.[facility] Primary Care Provider Thomas Alas MD Primary Care Provider +-[phone] Georgina Barkley MD Unavailable [phone] Source Comments In the event this information is protected by the Federal Confidentiality of Alcohol and Drug AbusePatient Records regulations: The Federal rules restrict any use of the information to criminally investigate or prosecute any alcohol or drug abuse patient.[facility] Encounter Details Date Type Department Care Team (Late st Contact Info) Description 06/14/2020 Patient Msg General Surgery [address] [phone] Provider, [facility] RE: Yout Follow Up Appointment Social History Tobacco Use Types Packs/Day [...] on file 01/21/2020 Data from: https://www.neighborhoodatlas.medicine.[facility].edu/. Last address used for calculation Not on file 01/21/2020 Education Answer Date Recorded What is the highest level of school you have completed or the highest degree you have received? Master's degree (e.g., MA, MS, Birgit, MEd, SUPERVISOR CIGARETTE MAKING DEPARTMENT, IVANIA) 10/15/2019 Comments No Sex and Gender [...] Contact Info) Description 09/18/2024 12:30 PM EDT [facility] Hematology/Oncology [address] [place] [address] [place] [address] Carroll dressing and cap change;Labs as needed per patient 09/22/2024 12:30 PM EDT Office Visit Gastroenterology [address] [id number] Telecommunications Line Installer, Grupo [address] [place] [address] HPN / PAGE [phone] 09/22/2024 1:00 PM EDT Office Visit Gastroenterology [address] [phone] Georgina Barkley MD [address] [address] HPN / PAGE [id number] 09/25/2024 9:00 AM EDT Infusion Center Hematology/Oncology [address] [place] [address] [place] [address] Hodges dressing and cap change;Labs as needed per patient 09/29/2024 10:15 AM EDT Appointment [facility] Endoscopy - ENDO [address] [place] [address] [place] [address] [place] [address] EGD 10/02/2024 9:00 AM EDT Infusion Center Hematology/Oncology [address] [place] [address] [place] [address] Hodges dressing and cap change;Labs as needed per patient 10/09/2024 9:00 AM EDT Infusion Center Hematology/Oncology [address] [place] [address] [place] [address] Hodges dressing and cap change;Labs as needed [...] documented as of this encounter Care Teams Phlebotomy Specialist Relationship Specialty Start Date End Date Shanna June CNP [address] [place] [address] PCP - General Family Medicine 01/31/20 01/18/22 Rachel Foley MD [address] [place] [address] PCP - General Family Medicine 01/19/22 06/15/22 Anna Mendez APRN.FOREIGN BROADCAST SPECIALIST [address] [place] [address] PCP - General 06/16/22 07/29/23 Thomas Alas MD [address] [place] [address] PCP - General Family Medicine 07/30/23 Antelmo Davey MD [address] [place] [address] 09/25/19 [place] [address] [place] [address] Consulting General Surgery 09/25/19 Shanna June CNP [address] [place] [address] Referring Family Medicine 10/19/19 Tj Najera PA [address] [place] [address] Referring Family Medicine 05/13/22 Georgina Barkley MD [address] [place] [address] Home Parenteral Nutrition Provider Gastroenterology 10/14/23 documented as of this encounter
--- OUTSIDE RECORDS SUMMARY | 2024-09-15 16:41 | XMS_ITS | Encounter Summary ---
Author Organization [facility] Address [address] [place] [address] Care Team Providers Care Rotary Derrick Operator Name Role Phone Antelmo Davey MD Unavailable [phone] Deacon Valladares MD Unavailable Shanna June CNP Unavailable [phone] Tj Najera Unavailable [phone] Thomas Alas MD Primary Care Provider [phone] Georgina Barkley MD Unavailable [phone] Source Comments In the event this information is protected by the Federal Confidentiality of Alcohol and Drug AbusePatient Records regulations: The Federal rules restrict any use of the information to criminally investigate or prosecute any alcohol or drug abuse patient.[facility] Encounter Details Date Type Department Care Team (Late st Contact Info) Description 04/12/2024 Patient Msg Hematology/Oncology [address] [facility] [place] [address] Provider, [facility] Appointment Cancellation Request Social History Tobacco Use Types Packs/Day Years Used Date Smoking Tobacco: Never Smokeless Tobacco: Never Alcohol Use Standard Drinks/Week Comments Not Currently 0 (1 standard drink = 0.6 oz pur e alcohol) [facility] Utilities Answer Date Recorded In [...] often do you attend chur ch or jehovah's witness services? 1 to 4 times per year [...] Answer Date Recorded PHQ-2 score 3 01/14/2024 [facility] of Occupat ional Health - Occupational Stress [...] any time in the past 12 m [facility], were you homeless or living in a long term (including now)? No 04/12/2024 Area Deprivation Index Answer Date Nayan rded National Score (1-100), lower number is lower ri sk 64 06/17/2022 State Score (1-10), lower number is lower risk 4 06/17/2022 Data from: https://www.neighborhoodatlas.medicine.[facility].edu/. Last address used for calculation [id number] [facility] [address] 06/17/2022 Education Answer Date Recorded What is the highest level of school you have completed or the highest degree you have received? Master's degree (e.g., MA, MS, Birgit, MEd, ARTERIAL EMBALMER, IVANIA) 10/15/2019 Comments No Sex and Gender [...] 12:30 PM EDT Infusion Center Hematology/Oncology [address] [place] [address] [place] [address] Carroll dressing and cap change;Labs as needed per patient 09/22/2024 12:30 PM EDT Office Visit Gastroenterology [address] [address] Boiler Tender, Grupo [address] [place] [address] HPN / PAGE [id number] 09/22/2024 1:00 PM EDT Office Visit Gastroenterology [address] [phone] Georgina Barkley MD [facility] [address] [place], [place] [address] HPN / PAGE [phone] 09/25/2024 9:00 AM EDT Infusion Center Hematology/Oncology [address] [place] [address] [place] [address] Hodges dressing and cap change;Labs as needed per patient 09/29/2024 10:15 AM EDT Appointment [facility] Endoscopy - ENDO [address] [place] [address] [place] [address] [place] [address] EGD 10/02/2024 9:00 AM EDT Infusion Center Hematology/Oncology [address] [place] [address] [place] [address] Hodges dressing and cap change;Labs as needed per patient 10/09/2024 9:00 AM EDT Infusion Center Hematology/Oncology [address] [place] [address] [place] [address] Hodges dressing and cap change;Labs as needed per patient documented as of this encounter Goals Goal Patient Goal Type Associated Problems Recent Progress Patient-Stated? Author Blood Pressure < 140/90 Blood Pressure 112/76( 025 8:48 AM EDT) No Hannah Devlin MD documented as of this encounter Visit Diagnoses Not on filedocumented in this encounter Care Teams Rotary Derrick Operator Relationship Specialty Start Date End Date Thomas Alas MD [address] [place] [address] PCP - General Family Medicine 07/30/23 Antelmo Davey MD [address] [place] [address] 09/25/19 [place] [address] [place] [address] Consulting General Surgery 09/25/19 Shanna June CNP [address] [place] [address] Referring Family Medicine 10/19/19 Tj Najera PA [address] [address] Referring Family Medicine 05/13/22 Georgina Barkley MD [address] [place] [address] Home Parenteral Nutrition Provider Gastroenterology 10/14/23 documented as of this encounter
--- OUTSIDE RECORDS SUMMARY | 2024-09-15 16:42 | XMS_ITS | Encounter Summary ---
Author Organization [facility] Address [address] [place] [address] Care Team Providers Care Seal Delivery Vehicle Team Technician Name Role Phone Antelmo Davey MD Unavailable Deacon Valladares MD Unavailable [phone] Shanna June CNP Unavailable [phone] Shanna June CNP Primary Care Provider [phone] Rachel Foley MD Primary Care Provider [phone] Tj Najera Unavailable [phone] Anna Mendez APRN.[facility] Primary Care Provider Thomas Alas MD Primary Care Provider +-4 Georgina Barkley MD Unavailable [phone] Source Comments In the event this information is protected by the Federal Confidentiality of Alcohol and Drug AbusePatient Records regulations: The Federal rules restrict any use of the information to criminally investigate or prosecute any alcohol or drug abuse patient.[facility] Encounter Details Date Type Department Care Team (Late st Contact Info) Description 01/14/2021 Get Medical Advice BMI [facility] REJ [address] [facility] [address] [place] [address] [place], [place] [phone] POC Social History Tobacco Use Types Packs/Day Years [...] N ot on file 01/21/2020 Data from: https://www.neighborhoodatlas.medicine.[facility].edu/. Last address used for calculation Not on file 01/21/2020 Education Answer Date Recorded What is the highest level of school you have completed or the highest degree you have received? Master's degree (e.g., MA, MS, Birgit, MEd, PLATFORM INSPECTOR, IVANIA) 10/15/2019 Comments No Sex and [...] have Coronavirus / COVID-19? No / Unsure 01/07/2021 7:27 AM EST documented as of this encounter [...] 12:30 PM EDT Infusion Center Hematology/Oncology [address] [place] [address] [place] [address] Hodges dressing and cap change;Labs as needed per patient 09/22/2024 12:30 PM EDT Office Visit Gastroenterology [address] [address] Air Pollution Inspector, Grupo [address] [place] [address] GRUPO / PAGE [phone] 09/22/2024 1:00 PM EDT Office Visit Gastroenterology [address] [phone] Georgina Barkley MD [facility] [address] [phone] HPN / PAGE [id number] 09/25/2024 9:00 AM EDT Infusion Center Hematology/Oncology [address] [place] [address] [place] [address] Hodges dressing and cap change;Labs as needed per patient 09/29/2024 10:15 AM EDT Appointment [facility] Endoscopy - ENDO [address] [place] [address] [place] [address] [place], [place] [phone] EGD 10/02/2024 9:00 AM EDT Infusion Center Hematology/Oncology [address] [place] [address] [place] [address] Hodges dressing and cap change;Labs as needed per patient 10/09/2024 9:00 AM EDT Infusion Center Hematology/Oncology [address] [place] [address] [place] [address] Hodges dressing and cap change;Labs as needed per patient documented as of this encounter Visit Diagnoses Not on filedocumented in this encounter Additional Health Concerns Infection Onset Date Last Indicated Resolved Time COVID-19 Rule-Out 01/29/2022 01/29/2022 01/29/2022 6:59 PM EST COVID-19 Rule-Out 06/06/2023 06/06/2023 06/06/2023 6:19 PM EDT documented as of this encounter Care Teams Seal Delivery Vehicle Team Technician Relationship Specialty Start Date End Date Shanna June CNP [address] [place] [address] PCP - General Family Medicine 01/31/20 01/18/22 Rachel Foley MD [address] [place] [address] PCP - General Family Medicine 01/19/22 06/15/22 Anna Mendez APRN.PRODUCTION CONTROL EXPERT [address] [facility] [place] [address] PCP - General 06/16/22 07/29/23 Thomas Alas MD [address] [place] [address] PCP - General Family Medicine 07/30/23 Antelmo Davey MD [address] [place] [address] 09/25/19 [place] [address] [place] [address] Consulting General Surgery 09/25/19 Shanna June, BETH [address] [place] [address] Referring Family Medicine 10/19/19 Tj Najera PA [address] [place] [address] Referring Family Medicine 05/13/22 Georgina Barkley MD [address] [place] [address] Home Parenteral Nutrition Provider Gastroenterology 10/14/23 documented as of this encounter
--- OUTSIDE RECORDS SUMMARY | 2024-09-15 16:42 | XMS_ITS | Encounter Summary ---
Author Organization [facility] Address [address] [place] [address] Care Team Providers Care Acetylene Gas Compressor Name Role Phone Anna Mendez FARMWORKER DIVERSIFIED CROPS Unavailable Unallocated, Noms Provider Primary Care Provi pako Tj Najera PA Unavailable [phone] Thomas Alas MD Primary Care Provider [phone] Encounter Details Date Type Department Care Team (Late st Contact Info) Description 09/07/2022 Abstract [facility] [address] [place] [address] Tj Najera, PA [address] [facility] [place] [address] Social History Tobacco Use Types Packs/Day [...] on filedocumented in this encounter Care Teams Acetylene Gas Compressor Relationship Specialty Start Date End Date Unallocated, Noms ProviderMD [address] [address] PCP - General 07/23/22 12/13/23 Tj Najera PA [address] [place] [address] PCP - Medical [facility] 07/16/22 04/24/23 Thomas Alas MD [address] [place] [address] PCP - General Family Medicine 12/14/23 Anna Mendez NP [address] [place] [address] Referring Physician Family Medicine 07/23/22 documented as of this encounter
--- OUTSIDE RECORDS SUMMARY | 2024-09-15 16:42 | XMS_ITS | Encounter Summary ---
Author Organization [facility] Address [address] [place] [address] Care Team Providers Care Forestry Aid Name Role Phone Antelmo Davey MD Unavailable Deacon Valladares MD Unavailable [phone] Shnana June CNP Unavailable [phone] Shanna June CNP Primary Care Provider [phone] Rachel Foley MD Primary Care Provider [phone] Tj Najera Unavailable [phone] Anna Mendez APRN.[facility] Primary Care Provider Thomas Alas MD Primary Care Provider +-4 Georgina Barkley MD Unavailable [phone] Source Comments In the event this information is protected by the Federal Confidentiality of Alcohol and Drug AbusePatient Records regulations: The Federal rules restrict any use of the information to criminally investigate or prosecute any alcohol or drug abuse patient.[facility] Encounter Details Date Type Department Care Team (Late st Contact Info) Description 01/10/2021 Patient Msg Gastroenterology [address] [address] Kasie Avalos MD [address] [place] [address] Appointment Request Social History Tobacco Use Types [...] N ot on file 01/21/2020 Data from: https://www.neighborhoodatlas.medicine.[facility].edu/. Last address used for calculation Not on file 01/21/2020 Education Answer Date Recorded What is the highest level of school you have completed or the highest degree you have received? Master's degree (e.g., MA, MS, Birgit, MEd, CANVAS BASTER JUMPBASTING, IVANIA) 10/15/2019 Comments No Sex and Gender [...] 09/18/2024 12:30 PM EDT Infusion Center Hematology/Oncology [address] [place] [address] [place] [address] Hodges dressing and cap change;Labs as needed per patient 09/22/2024 12:30 PM EDT Office Visit Gastroenterology [address] [place] [phone] Towel Sorter, Grupo [address] [place] [address] GRUPO / PAGE [phone] 09/22/2024 1:00 PM EDT Office Visit Gastroenterology [address] [phone] Georgina Barkley MD [facility] [address] [phone] HPN / PAGE [id number] 09/25/2024 9:00 AM EDT Infusion Center Hematology/Oncology [address] [place] [address] [place] [address] Hodges dressing and cap change;Labs as needed per patient 09/29/2024 10:15 AM EDT Appointment [facility] Endoscopy - ENDO [address] [place] [address] [place] [address] [place], [place] [phone] EGD 10/02/2024 9:00 AM EDT Infusion Center Hematology/Oncology [address] [place] [address] [place] [address] Hodges dressing and cap change;Labs as needed per patient 10/09/2024 9:00 AM EDT Infusion Center Hematology/Oncology [address] [place] [address] [place] [address] Hodges dressing and cap change;Labs as needed per patient documented as of this encounter Visit Diagnoses Not on filedocumented in this encounter Additional Health Concerns Infection Onset Date Last Indicated Resolved Time COVID-19 Rule-Out 01/29/2022 01/29/2022 01/29/2022 6:59 PM EST COVID-19 Rule-Out 06/06/2023 06/06/2023 06/06/2023 6:19 PM EDT documented as of this encounter Care Teams Forestry Aid Relationship Specialty Start Date End Date Shanna June CNP [address] [place] [address] PCP - General Family Medicine 01/31/20 01/18/22 Rachel Foley MD [address] [facility] [place] [address] PCP - General Family Medicine 01/19/22 06/15/22 Anna Mendez APRN.RESEARCH AND DEVELOPMENT SPECIALIST [address] [facility] [address] [place] [address] PCP - General 06/16/22 07/29/23 Thomas Alas MD [address] [place] [address] PCP - General Family Medicine 07/30/23 Antelmo Davey MD [address] [place] [address] 09/25/19 [place] [address] [place] [address] Consulting General Surgery 09/25/19 Shanna June, BETH [address] [place] [address] Referring Family Medicine 10/19/19 Tj Najera PA [address] [address] Referring Family Medicine 05/13/22 Georgina Barkley MD [address] [place] [address] Home Parenteral Nutrition Provider Gastroenterology 10/14/23 documented as of this encounter
--- OUTSIDE RECORDS SUMMARY | 2024-09-15 16:42 | XMS_ITS | Encounter Summary ---
Author Organization [facility] Address [address] [place] [address] Care Team Providers Care Ton Cylinder Inspector Name Role Phone Antelmo Davey MD Unavailable Deacon Valladares MD Unavailable [phone] hSanna June CNP Unavailable +[phone] Shanna June CNP Primary Care Provider [phone] Rachel Foley MD Primary Care Provider [phone] Tj Najera Unavailable [phone] Anna Mendez APRN.[facility] Primary Care Provider Thomas Alas MD Primary Care Provider +-4 Georgina Barkley MD Unavailable [phone] Source Comments In the event this information is protected by the Federal Confidentiality of Alcohol and Drug AbusePatient Records regulations: The Federal rules restrict any use of the information to criminally investigate or prosecute any alcohol or drug abuse patient.[facility] Encounter Details Date Type Department Care Team (Late st Contact Info) Description 03/17/2021 Get Medical Advice BMI [facility] REJ [address] [place] [address] [place] [address] [place], [place] [id number] Surgery Social History Tobacco Use Types Packs/Day Years [...] PHQ-2 Answer Date Recorded PHQ-2 score 2 02/27/2021 Hunger Vital Sign Answer Date Recorded Within [...] ot on file 01/21/2020 Data from: https://www.neighborhoodatlas.medicine.[facility].edu/. Last address used for calculation Not on file 01/21/2020 Education Answer Date Recorded What is the highest level of school you have completed or the highest degree you have received? Master's degree (e.g., MA, MS, Birgit, MEd, SOCIAL WORKER DELINQUENCY PREVENTION, IVANIA) 10/15/2019 Comments No Sex and Gender [...] 09/18/2024 12:30 PM EDT Infusion Center Hematology/Oncology [address] [place] [address] [place] [address] Carroll dressing and cap change;Labs as needed per patient 09/22/2024 12:30 PM EDT Office Visit Gastroenterology [address] [address] Hospitality Recruiter, Rodneyn [address] [place] [address] HPN / PAGE [id number] 09/22/2024 1:00 PM EDT Office Visit Gastroenterology [address] [address] [id number] Georgina Barkley MD [facility] [address] [address] [id number] HPN / PAGE [id number] 09/25/2024 9:00 AM EDT Infusion Center Hematology/Oncology [address] [place] [address] [place] [address] Hodges dressing and cap change;Labs as needed per patient 09/29/2024 10:15 AM EDT Appointment [facility] Endoscopy - ENDO [address] [place] [address] [place] [address] [place] [address] EGD 10/02/2024 9:00 AM EDT Infusion Center Hematology/Oncology [address] [place] [address] [place] [address] Hodges dressing and cap change;Labs as needed per patient 10/09/2024 9:00 AM EDT Infusion Center Hematology/Oncology [address] [place] [address] [place] [address] Hodges dressing and cap change;Labs as needed per patient documented as of this encounter Visit Diagnoses Not on filedocumented in this encounter Additional Health Concerns Infection Onset Date Last Indicated Resolved Time COVID-19 Rule-Out 01/29/2022 01/29/2022 01/29/2022 6:59 PM EST COVID-19 Rule-Out 06/06/2023 06/06/2023 06/06/2023 6:19 PM EDT documented as of this encounter Care Teams Ton Cylinder Inspector Relationship Specialty Start Date End Date Shanna June CNP [address] [place] [address] PCP - General Family Medicine 01/31/20 01/18/22 Rachel Foley MD [address] [place] [address] PCP - General Family Medicine 01/19/22 06/15/22 Anna Mendez APRN.CAB WORKER [address] [address] [place] [address] PCP - General 06/16/22 07/29/23 Thomas Alas MD [address] [place] [place] [address] PCP - General Family Medicine 07/30/23 Antelmo Davey MD [address] [place] [address] 09/25/19 [place] [address] [place] [address] Consulting General Surgery 09/25/19 Shanna June, BETH [address] [place] [address] Referring Family Medicine 10/19/19 Tj Najera PA [address] [place] [address] Referring Family Medicine 05/13/22 Georgina Barkley MD [address] [place] [address] Home Parenteral Nutrition Provider Gastroenterology 10/14/23 documented as of this encounter
--- OUTSIDE RECORDS SUMMARY | 2024-09-15 16:42 | XMS_ITS | Encounter Summary ---
Author Organization [facility] Address [address] [place] [address] Care Team Providers Care Co Director Name Role Phone Antelmo Davey MD Unavailable Deacon Valladares MD Unavailable [phone] Shanna June CNP Unavailable +[phone] Shanna June CNP Primary Care Provider [phone] Rachel Foley MD Primary Care Provider [phone] Tj Najera Unavailable [phone] Anna Mendez APRN.[facility] Primary Care Provider Thomas Alas MD Primary Care Provider +-4 Georgina Barkley MD Unavailable [phone] Source Comments In the event this information is protected by the Federal Confidentiality of Alcohol and Drug AbusePatient Records regulations: The Federal rules restrict any use of the information to criminally investigate or prosecute any alcohol or drug abuse patient.[facility] Encounter Details Date Type Department Care Team (Late st Contact Info) Description 01/16/2021 Get Medical Advice BMI [facility] REJ [address] [address] [place] [address] [place] [address] [place], [place] [id number] POC Social History Tobacco Use Types Packs/Day [...] Data from: https://www.neighborhoodatlas.medicine.[facility].edu/. Last address used for calculation Not on file 01/21/2020 Education Answer Date Recorded What is the highest level of school you have completed or the highest degree you have received? Master's degree (e.g., MA, MS, Birgit, MEd, HAM STRIPPER, IVANIA) 10/15/2019 Comments No Sex and Gender [...] 09/18/2024 12:30 PM EDT Infusion Center Hematology/Oncology [address] [place] [address] [place] [address] Hodges dressing and cap change;Labs as needed per patient 09/22/2024 12:30 PM EDT Office Visit Gastroenterology [address] [address] Sql Server Bi Developer, Grupo [address] [place] [address] GRUPO / PAGE [id number] 09/22/2024 1:00 PM EDT Office Visit Gastroenterology [address] [phone] Georgina Barkley MD [facility] [address] [phone] HPN / PAGE [id number] 09/25/2024 9:00 AM EDT Infusion Center Hematology/Oncology [address] [place] [address] [place] [address] Hodges dressing and cap change;Labs as needed per patient 09/29/2024 10:15 AM EDT Appointment [facility] Endoscopy - ENDO [address] [place] [address] [place] [address] [place], [place] [phone] EGD 10/02/2024 9:00 AM EDT Infusion Center Hematology/Oncology [address] [place] [address] [place] [address] Hodges dressing and cap change;Labs as needed per patient 10/09/2024 9:00 AM EDT Infusion Center Hematology/Oncology [address] [place] [address] [place] [address] Hodges dressing and cap change;Labs as needed per patient documented as of this encounter Visit Diagnoses Not on filedocumented in this encounter Additional Health Concerns Infection Onset Date Last Indicated Resolved Time COVID-19 Rule-Out 01/29/2022 01/29/2022 01/29/2022 6:59 PM EST COVID-19 Rule-Out 06/06/2023 06/06/2023 06/06/2023 6:19 PM EDT documented as of this encounter Care Teams Co Director Relationship Specialty Start Date End Date Shanna June CNP [address] [place] [address] PCP - General Family Medicine 01/31/20 01/18/22 Rachel Foley MD [address] [place] [address] PCP - General Family Medicine 01/19/22 06/15/22 Anna Mendez APRN.PC SUPPORT SPECIALIST [address] [facility] [place] [address] PCP - General 06/16/22 07/29/23 Thomas Alas MD [address] [place] [address] PCP - General Family Medicine 07/30/23 Antelmo Davey MD [address] [place] [address] 09/25/19 [place] [address] [place] [address] Consulting General Surgery 09/25/19 Shanna June, BETH [address] [place] [address] Referring Family Medicine 10/19/19 Tj Najera PA [address] [place] [address] Referring Family Medicine 05/13/22 Georgina Barkley MD [address] [place] [address] Home Parenteral Nutrition Provider Gastroenterology 10/14/23 documented as of this encounter
--- OUTSIDE RECORDS SUMMARY | 2024-09-15 16:42 | XMS_ITS | Encounter Summary ---
Author Organization [facility] Address [address] [place] [address] Care Team Providers Care Radiology Tech Name Role Phone Antelmo Davey MD Unavailable Deacon Valladares MD Unavailable [phone] Shanna June CNP Unavailable [phone] Shanna June CNP Primary Care Provider [phone] Rachel Foley MD Primary Care Provider [phone] Tj Najera Unavailable [phone] Anna Mendez APRN.[facility] Primary Care Provider Thomas Alas MD Primary Care Provider +-4 Georgina Barkley MD Unavailable [phone] Source Comments In the event this information is protected by the Federal Confidentiality of Alcohol and Drug AbusePatient Records regulations: The Federal rules restrict any use of the information to criminally investigate or prosecute any alcohol or drug abuse patient.[facility] Encounter Details Date Type Department Care Team (Late st Contact Info) Description 12/28/2020 Get Medical Advice Gastroenterology [address] [address] Kasie Avalos MD [address] [place] [address] Plan of Care Social History Tobacco Use Types Packs/Day Years [...] Master's degree (e.g., MA, MS, Birgit, MEd, STUNNER AND SHACKLER, IVANIA) 10/15/2019 Comments No Sex and Gender [...] have Coronavirus / COVID-19? No / Unsure 12/31/2020 12:29 PM EST documented as of this encounter [...] 12:30 PM EDT Infusion Center Hematology/Oncology [address] [place] [address] [place] [address] Hodges dressing and cap change;Labs as needed per patient 09/22/2024 12:30 PM EDT Office Visit Gastroenterology [address] [address] Food And Drug Research Scientist, Grupo [address] [place] [address] GRUPO / PAGE [id number] 09/22/2024 1:00 PM EDT Office Visit Gastroenterology [address] [id number] Georgina Barkley MD [facility] [address] [id number] HPN / PAGE [id number] 09/25/2024 9:00 AM EDT Infusion Center Hematology/Oncology [address] [place] [address] [place] [address] Hodges dressing and cap change;Labs as needed per patient 09/29/2024 10:15 AM EDT Appointment [facility] Endoscopy - ENDO [address] [place] [address] [place] [address] [place], [place] [phone] EGD 10/02/2024 9:00 AM EDT Infusion Center Hematology/Oncology [address] [place] [address] [place] [address] Hodges dressing and cap change;Labs as needed per patient 10/09/2024 9:00 AM EDT Infusion Center Hematology/Oncology [address] [place] [address] [place] [address] Hodges dressing and cap change;Labs as needed per patient documented as of this encounter Visit Diagnoses Not on filedocumented in this encounter Additional Health Concerns Infection Onset Date Last Indicated Resolved Time COVID-19 Rule-Out 01/29/2022 01/29/2022 01/29/2022 6:59 PM EST COVID-19 Rule-Out 06/06/2023 06/06/2023 06/06/2023 6:19 PM EDT documented as of this encounter Care Teams Radiology Tech Relationship Specialty Start Date End Date Shanna June CNP [address] [place] [address] PCP - General Family Medicine 01/31/20 01/18/22 Rachel Foley MD [address] [facility] [place] [address] PCP - General Family Medicine 01/19/22 06/15/22 Anna Mendez APRN.ASP NET MVC DEVELOPER [address] [place] [address] PCP - General 06/16/22 07/29/23 Thomas Alas MD [address] [place] [address] PCP - General Family Medicine 07/30/23 Antelmo Davey MD [address] [place] [address] 09/25/19 [place] [address] [place] [address] Consulting General Surgery 09/25/19 Shanna June, BETH [address] [place] [address] Referring Family Medicine 10/19/19 Tj Najera PA [address] [address] Referring Family Medicine 05/13/22 Georgina Barkley MD [address] [place] [address] Home Parenteral Nutrition Provider Gastroenterology 10/14/23 documented as of this encounter
--- OUTSIDE RECORDS SUMMARY | 2024-09-15 16:42 | XMS_ITS | Encounter Summary ---
Author Organization [facility] Address [address] [place] [address] Care Team Providers Care Reports Analysis Manager Name Role Phone Antelmo Davey MD Unavailable Deacon Valladares MD Unavailable [phone] Shanna June CNP Unavailable [phone] Shanna June CNP Primary Care Provider [phone] Rachel Foley MD Primary Care Provider [phone] Tj Najera Unavailable [phone] Anna Mendez APRN.[facility] Primary Care Provider Thomas Alas MD Primary Care Provider +-4 Georgina Barkley MD Unavailable [phone] Source Comments In the event this information is protected by the Federal Confidentiality of Alcohol and Drug AbusePatient Records regulations: The Federal rules restrict any use of the information to criminally investigate or prosecute any alcohol or drug abuse patient.[facility] Encounter Details Date Type Department Care Team (Late st Contact Info) Description 12/03/2020 Patient Msg [facility] [address] [place] [address] Provider, Ccf Time Sensitive Instructions regarding your upcoming Manometry Esophageal w/pH Please follow Instructions carefully Thank you Social History Tobacco Use Types [...] ot on file 01/21/2020 Data from: https://www.neighborhoodatlas.medicine.[facility].edu/. Last address used for calculation Not on file 01/21/2020 Education Answer Date Recorded What is the highest level of school you have completed or the highest degree you have received? Master's degree (e.g., MA, MS, Birgit, MEd, PLUMBING AND HEATING CONTRACTOR, IVANIA) 10/15/2019 Comments No Sex and Gender [...] have Coronavirus / COVID-19? No / Unsure 12/02/2020 9:15 AM EDT documented as of this encounter [...] 09/18/2024 12:30 PM EDT Infusion Center Hematology/Oncology [address] [place] [address] [place] [address] Carroll dressing and cap change;Labs as needed per patient 09/22/2024 12:30 PM EDT Office Visit Gastroenterology [address] [address] Crystal Flat Grinder, Grupo [address] [place] [address] HPN / PAGE [id number] 09/22/2024 1:00 PM EDT Office Visit Gastroenterology [address] [phone] Georgina Barkley MD [facility] [address] [place] [address] HPN / PAGE [phone] 09/25/2024 9:00 AM EDT Infusion Center Hematology/Oncology [address] [place] [address] [place] [address] Hodges dressing and cap change;Labs as needed per patient 09/29/2024 10:15 AM EDT Appointment [facility] Endoscopy - ENDO [address] [place] [address] [place] [address] [place] [address] EGD 10/02/2024 9:00 AM EDT Infusion Center Hematology/Oncology [address] [place] [address] [place] [address] Hodges dressing and cap change;Labs as needed per patient 10/09/2024 9:00 AM EDT Infusion Center Hematology/Oncology [address] [place] [address] [place] [address] Hodges dressing and cap change;Labs as needed [...] documented as of this encounter Care Teams Reports Analysis Manager Relationship Specialty Start Date End Date Shanna June CNP [address] [place] [address] PCP - General Family Medicine 01/31/20 01/18/22 Rachel Foley MD [address] [place] [address] PCP - General Family Medicine 01/19/22 06/15/22 Anna Mendez APRN.TRANSFORMATION CONSULTANT [address] [facility] [address] [place] [address] PCP - General 06/16/22 07/29/23 Thomas Alas MD [address] [place] [address] PCP - General Family Medicine 07/30/23 Antelmo Davey MD [address] [place] [address] 09/25/19 [place] [address] [place] [address] Consulting General Surgery 09/25/19 Shanna June, BETH [address] [place] [address] Referring Family Medicine 10/19/19 Tj Najera PA [address] [facility] [address] [place] [address] Referring Family Medicine 05/13/22 Georgina Barkley MD [address] [place] [address] Home Parenteral Nutrition Provider Gastroenterology 10/14/23 documented as of this encounter
--- OUTSIDE RECORDS SUMMARY | 2024-09-15 16:42 | XMS_ITS | Encounter Summary ---
Author Organization [facility] Address [address] [place] [address] Care Team Providers Care Telephone Operators Supervisor Name Role Phone Antelmo Davey MD Unavailable Deacon Valladares MD Unavailable Shanna June CNP Unavailable [phone] Shanna June CNP Primary Care Provider [phone] Rachel Foley MD Primary Care Provider [phone] Tj Najera Unavailable [phone] Anna Mendez APRN.[facility] Primary Care Provider Thomas Alas MD Primary Care Provider +-4 Georgina Barkley MD Unavailable [phone] Source Comments In the event this information is protected by the Federal Confidentiality of Alcohol and Drug AbusePatient Records regulations: The Federal rules restrict any use of the information to criminally investigate or prosecute any alcohol or drug abuse patient.[facility] Encounter Details Date Type Department Care Team (Late st Contact Info) Description 12/30/2020 Patient Msg BMI [facility] REJ [address] [place], [place] [id number] Provider, Ccf Keep upcoming appts- call for cancellations to be seen sooner Social History Tobacco Use Types Packs/Day Years [...] on file 01/21/2020 Data from: https://www.neighborhoodatlas.medicine.[facility].edu/. Last address used for calculation Not on file 01/21/2020 Education Answer Date Recorded What is the highest level of school you have completed or the highest degree you have received? Master's degree (e.g., MA, MS, Birgit, MEd, SENIOR TRAINING SPECIALIST, IVANIA) 10/15/2019 Comments No Sex and [...] 09/18/2024 12:30 PM EDT Infusion Center Hematology/Oncology [address] [place] [address] [place] [address] Carroll dressing and cap change;Labs as needed per patient 09/22/2024 12:30 PM EDT Office Visit Gastroenterology [address] [phone] Ethical Hacker, Grupo [address] [place] [address] GRUPO / PAGE [phone] 09/22/2024 1:00 PM EDT Office Visit Gastroenterology [address] [phone] Georgina Barkley MD [address] [address] HPN / PAGE [id number] 09/25/2024 9:00 AM EDT Infusion Center Hematology/Oncology [address] [place] [address] [place] [address] Hodges dressing and cap change;Labs as needed per patient 09/29/2024 10:15 AM EDT Appointment [facility] Endoscopy - ENDO [address] [place] [address] [place] [address] [place] [address] EGD 10/02/2024 9:00 AM EDT Infusion Center Hematology/Oncology [address] [place] [address] [place] [address] Hodges dressing and cap change;Labs as needed per patient 10/09/2024 9:00 AM EDT Infusion Center Hematology/Oncology [address] [place] [address] [place] [address] Hodges dressing and cap change;Labs as needed per patient documented as of this encounter Visit Diagnoses Not on filedocumented in this encounter Additional Health Concerns Infection Onset Date Last Indicated Resolved Time COVID-19 Rule-Out 01/29/2022 01/29/2022 01/29/2022 6:59 PM EST COVID-19 Rule-Out 06/06/2023 06/06/2023 06/06/2023 6:19 PM EDT documented as of this encounter Care Teams Telephone Operators Supervisor Relationship Specialty Start Date End Date Shanna June CNP [address] [place] [address] PCP - General Family Medicine 01/31/20 01/18/22 Rachel Foley MD [address] [place] [address] PCP - General Family Medicine 01/19/22 06/15/22 Anna Mendez APRN.MEDIA SALES CONSULTANT [address] [facility] [address] [place] [address] PCP - General 06/16/22 07/29/23 Thomas Alas MD [address] [place] [address] PCP - General Family Medicine 07/30/23 Antelmo Davey MD [address] [place] [address] 09/25/19 [place] [address] [place] [address] Consulting General Surgery 09/25/19 Shanna June, BETH [address] [place] [address] Referring Family Medicine 10/19/19 Tj Najera PA [address] [address] Referring Family Medicine 05/13/22 Georgina Barkley MD [address] [place] [address] Home Parenteral Nutrition Provider Gastroenterology 10/14/23 documented as of this encounter
--- OUTSIDE RECORDS SUMMARY | 2024-09-15 16:42 | XMS_ITS | Encounter Summary ---
Author Organization [facility] Address [address] [place] [address] Care Team Providers Care Multifold Operator Name Role Phone Anna Mendez SKIN CARE SPECIALIST Unavailable Unallocated, Noms Provider Primary Care Provi pako Tj Najera Unavailable [phone] Thomas Alas MD Primary Care Provider [phone] Encounter Details Date Type Department Care Team (Late st Contact Info) Description 10/05/2022 Abstract [facility] [address] [place] [address] Tj Najera, PA [address] [facility] [place] [address] Social History Tobacco Use Types [...] on filedocumented in this encounter Care Teams Multifold Operator Relationship Specialty Start Date End Date Unallocated, Noms ProviderMD [address] [address] PCP - General 07/23/22 12/13/23 Tj Najera PA [address] [place] [address] PCP - Medical [facility] 07/16/22 04/24/23 Thomas Alas MD [address] [place] [address] PCP - General Family Medicine 12/14/23 Anna Mendez NP [address] [place] [address] Referring Physician Family Medicine 07/23/22 documented as of this encounter
--- OUTSIDE RECORDS SUMMARY | 2024-09-15 16:42 | XMS_ITS | Encounter Summary ---
Author Organization [facility] Address [address] [place] [address] Care Team Providers Care Oil Well Services Superintendent Name Role Phone Antelmo Davey MD Unavailable [phone] Deacon Valladares MD Unavailable [phone] Shanna June CNP Unavailable +[phone] Shanna June CNP Primary Care Provider [phone] Rachel Foley MD Primary Care Provider +- [phone] Tj Najera Unavailable [phone] Anna Mendez APRN.[facility] Primary Care Provider Thomas Alas MD Primary Care Provider +-4 Georgina Barkley MD Unavailable [phone] Source Comments In the event this information is protected by the Federal Confidentiality of Alcohol and Drug AbusePatient Records regulations: The Federal rules restrict any use of the information to criminally investigate or prosecute any alcohol or drug abuse patient.[facility] Encounter Details Date Type Department Care Team (Latest Contact Info) Description 03/05/2021 Get Medical Advice BMI [facility] REJ [address] [place] [address] [place] [address] [place], [place] [id number] Surgery Documentation for Work Social History Tobacco Use Types Packs/Day Years [...] [email or web address]/. Last address used for calculation Not on file 01/21/2020 Education Answer Date Recorded What is the highest level of school you have completed or the highest degree you have received? Master's degree (e.g., MA, MS, Birgit, MEd, STRAIGHT TOOTH GEAR GENERATOR OPERATOR, IVANIA) 10/15/2019 Comments No Sex and [...] have Coronavirus / COVID-19? No / Unsure 02/10/2021 12:32 PM EST documented as of this encounter [...] 09/18/2024 12:30 PM EDT Infusion Center Hematology/Oncology [address] [place] [address] [place] [address] Carroll dressing and cap change;Labs as needed per patient 09/22/2024 12:30 PM EDT Office Visit Gastroenterology [address] [address] Metallurgical Inspector, Grupo [address] [place] [address] HPN / PAGE [id number] 09/22/2024 1:00 PM EDT Office Visit Gastroenterology [address] [place] [phone] Georgina Barkley MD [facility] [address] [place] [address] [id number] HPN / PAGE [id number] 09/25/2024 9:00 AM EDT Infusion Center Hematology/Oncology [address] [place] [address] [place] [address] Hodges dressing and cap change;Labs as needed per patient 09/29/2024 10:15 AM EDT Appointment [facility] Endoscopy - ENDO [address] [place] [address] [place] [address] [place], [place] [phone] EGD 10/02/2024 9:00 AM EDT Infusion Center Hematology/Oncology [address] [place] [address] [place] [address] Hodges dressing and cap change;Labs as needed per patient 10/09/2024 9:00 AM EDT Infusion Center Hematology/Oncology [address] [place] [address] [place] [address] Hodges dressing and cap change;Labs as needed per patient documented as of this encounter Visit Diagnoses Not on filedocumented in this encounter Additional Health Concerns Infection Onset Date Last Indicated Resolved Time COVID-19 Rule-Out 01/29/2022 01/29/2022 01/29/2022 6:59 PM EST COVID-19 Rule-Out 06/06/2023 06/06/2023 06/06/2023 6:19 PM EDT documented as of this encounter Care Teams Oil Well Services Superintendent Relationship Specialty Start Date End Date Shanna June CNP [address] [place] [address] PCP - General Family Medicine 01/31/20 01/18/22 Rachel Foley MD [address] [place] [address] PCP - General Family Medicine 01/19/22 06/15/22 Anna Mendez APRN.TONGSMAN [address] [address] [place] [address] PCP - General 06/16/22 07/29/23 Thomas Alas MD [address] [place] [address] PCP - General Family Medicine 07/30/23 Antelmo Davey MD [address] [place] [address] 09/25/19 [place] [address] [place] [address] Consulting General Surgery 09/25/19 Shanna June, BETH [address] [place] [address] Referring Family Medicine 10/19/19 Tj Najera PA [address] [place] [address] Referring Family Medicine 05/13/22 Georgina Barkley MD [address] [place] [address] Home Parenteral Nutrition Provider Gastroenterology 10/14/23 documented as of this encounter
--- OUTSIDE RECORDS SUMMARY | 2024-09-15 16:42 | XMS_ITS | Encounter Summary ---
Author Organization [facility] Address [address] [place] [address] Care Team Providers Care Photographic Aide Name Role Phone Antelmo Davey MD Unavailable Deacon Valladares MD Unavailable [phone] Shanna June CNP Unavailable +[phone] Shanna June CNP Primary Care Provider [phone] Rachel Foley MD Primary Care Provider [phone] Tj Najera Unavailable [phone] Anna Mendez APRN.[facility] Primary Care Provider Thomas Alas MD Primary Care Provider +-4 Georgina Barkley MD Unavailable [phone] Source Comments In the event this information is protected by the Federal Confidentiality of Alcohol and Drug AbusePatient Records regulations: The Federal rules restrict any use of the information to criminally investigate or prosecute any alcohol or drug abuse patient.[facility] Encounter Details Date Type Department Care Team (Late st Contact Info) Description 12/25/2020 Get Medical Advice Nutrition Therapy [address] [address] Provider, Ccf Nutrition Question Social History Tobacco Use Types Packs/Day [...] N ot on file 01/21/2020 Data from: https://www.neighborhoodatlas.medicine.[facility].edu/. Last address used for calculation Not on file 01/21/2020 Education Answer Date Recorded What is the highest level of school you have completed or the highest degree you have received? Master's degree (e.g., MA, MS, Birgit, MEd, COMMUNICATION STUDIES PROFESSOR, IVANIA) 10/15/2019 Comments No Sex and [...] have Coronavirus / COVID-19? No / Unsure 12/27/2020 12:43 PM EST documented as of this encounter [...] [facility] Center Hematology/Oncology [address] [place] [address] [place] [address] Hodges dressing and cap change;Labs as needed per patient 09/22/2024 12:30 PM EDT Office Visit Gastroenterology [address] [address] Rice Farmer, Grupo [address] [place] [address] HPN / PAGE [id number] 09/22/2024 1:00 PM EDT Office Visit Gastroenterology [address] [address] Georgina Barkley MD [facility] [address] [place], [place] [id number] HPN / PAGE [id number] 09/25/2024 9:00 AM EDT Infusion Center Hematology/Oncology [address] [place] [address] [place] [address] Hodges dressing and cap change;Labs as needed per patient 09/29/2024 10:15 AM EDT Appointment [facility] Endoscopy - ENDO [address] [place] [address] [place] [address] [place] [address] EGD 10/02/2024 9:00 AM EDT Infusion Center Hematology/Oncology [address] [place] [address] [place] [address] Hodegs dressing and cap change;Labs as needed per patient 10/09/2024 9:00 AM EDT Infusion Center Hematology/Oncology [address] [place] [address] [place] [address] Hodges dressing and cap change;Labs as needed per patient documented as of this encounter Visit Diagnoses Not on filedocumented in this encounter Additional Health Concerns Infection Onset Date Last Indicated Resolved Time COVID-19 Rule-Out 12/21/2020 12/21/2020 12/25/2020 9:09 PM EST COVID-19 Rule-Out 01/29/2022 01/29/2022 01/29/2022 6:59 PM EST COVID-19 Rule-Out 06/06/2023 06/06/2023 06/06/2023 6:19 PM EDT documented as of this encounter Care Teams Photographic Aide Relationship Specialty Start Date End Date Shanna June CNP [address] [place] [address] PCP - General Family Medicine 01/31/20 01/18/22 Rachel Foley MD [address] [place] [address] PCP - General Family Medicine 01/19/22 06/15/22 Anna Mendez APRN.MEDICAL CLAIMS SPECIALIST [address] [facility] [address] [place] [address] PCP - General 06/16/22 07/29/23 Thomas Alas MD [address] [place] [address] PCP - General Family Medicine 07/30/23 Antelmo Davey MD [address] [place] [address] 09/25/19 [place] [address] [place] [address] Consulting General Surgery 09/25/19 Shanna June CNP [address] [place] [address] Referring Family Medicine 10/19/19 Tj Najera PA [address] [address] Referring Family Medicine 05/13/22 Georgina Barkley MD [address] [place] [address] Home Parenteral Nutrition Provider Gastroenterology 10/14/23 documented as of this encounter
--- OUTSIDE RECORDS SUMMARY | 2024-09-15 16:42 | XMS_ITS | Encounter Summary ---
Author Organization [facility] Address [address] [place] [address] Care Team Providers Care Risk Advisor Name Role Phone Antelmo Davey MD Unavailable Deacon Valladares MD Unavailable [phone] Shanna June CNP Unavailable +[phone] Shanna June CNP Primary Care Provider [phone] Rachel Foley MD Primary Care Provider [phone] Tj Najera Unavailable [phone] Anna Mendez APRN.[facility] Primary Care Provider Thomas Alas MD Primary Care Provider +-4 Georgina Barkley MD Unavailable [phone] Source Comments In the event this information is protected by the Federal Confidentiality of Alcohol and Drug AbusePatient Records regulations: The Federal rules restrict any use of the information to criminally investigate or prosecute any alcohol or drug abuse patient.[facility] Encounter Details Date Type Department Care Team (Late st Contact Info) Description 12/19/2020 Get Medical Advice BMI [facility] REJ [address] [place] [address] [place] [address] [place], [place] [phone] RE: Upcoming Appointment Question Social History Tobacco [...] ot on file 01/21/2020 Data from: https://www.neighborhoodatlas.medicine.[facility].edu/. Last address used for calculation Not on file 01/21/2020 Education Answer Date Recorded What is the highest level of school you have completed or the highest degree you have received? Master's degree (e.g., MA, MS, Birgit, MEd, AGENCY RECRUITER, IVANIA) 10/15/2019 Comments No Sex and [...] 12:30 PM EDT Infusion Center Hematology/Oncology [address] [place] [address] [place] [address] Carroll dressing and cap change;Labs as needed per patient 09/22/2024 12:30 PM EDT Office Visit Gastroenterology [address] [address] White Washer, Hpn [address] [place] [address] HPN / PAGE [id number] 09/22/2024 1:00 PM EDT Office Visit Gastroenterology [address] [phone] Georgina Barkley MD [facility] [address] [place] [id number] HPN / PAGE [id number] 09/25/2024 9:00 AM EDT Infusion Center Hematology/Oncology [address] [place] [address] [place] [address] Hodges dressing and cap change;Labs as needed per patient 09/29/2024 10:15 AM EDT Appointment [facility] Endoscopy - ENDO [address] [place] [address] [place] [address] [address] [id number] EGD 10/02/2024 9:00 AM EDT Infusion Center Hematology/Oncology [address] [place] [address] [place] [address] Hodges dressing and cap change;Labs as needed per patient 10/09/2024 9:00 AM EDT Infusion Center Hematology/Oncology [address] [place] [address] [place] [address] Hodges dressing and cap change;Labs as needed [...] documented as of this encounter Care Teams Risk Advisor Relationship Specialty Start Date End Date Shanna June CNP [address] [place] [address] PCP - General Family Medicine 01/31/20 01/18/22 Rachel Foley MD 521 [place] [address] PCP - General Family Medicine 01/19/22 06/15/22 Anna Mendez APRN.RN PAIN MANAGEMENT [address] [address] PCP - General 06/16/22 07/29/23 Thomas Alas MD 1265 [place] [address] PCP - General Family Medicine 07/30/23 Antelmo Davey MD 521 [place] [address] 09/25/19 [place] [address] [place] [address] Consulting General Surgery 09/25/19 Shanna June, BETH [address] [place] [address] Referring Family Medicine 10/19/19 Tj Najera PA [address] [address] Referring Family Medicine 05/13/22 Georgina Barkley MD [address] [place] [address] Home Parenteral Nutrition Provider Gastroenterology 10/14/23 documented as of this encounter
--- OUTSIDE RECORDS SUMMARY | 2024-09-15 16:42 | XMS_ITS | Encounter Summary ---
Author Organization [facility] Address [address] [place] [address] Care Team Providers Care Geodetic Computator Name Role Phone Antelmo Davey MD Unavailable Deacon Valladares MD Unavailable [phone] Shanna uJne CNP Unavailable +[phone] Shanna June CNP Primary Care Provider [phone] Rachel Foley MD Primary Care Provider [phone] Tj Najera Unavailable [phone] Anna Mendez APRN.[facility] Primary Care Provider Thomas Alas MD Primary Care Provider +-4 Georgina Barkley MD Unavailable [phone] Source Comments In the event this information is protected by the Federal Confidentiality of Alcohol and Drug AbusePatient Records regulations: The Federal rules restrict any use of the information to criminally investigate or prosecute any alcohol or drug abuse patient.[facility] Encounter Details Date Type Department Care Team (Late st Contact Info) Description 01/01/2021 Get Medical Advice BMI [facility] REJ [address] [place] [address] [place] [address] [place], [place] [id number] Moving appointment up Social History Tobacco Use Types Packs/Day [...] N ot on file 01/21/2020 Data from: https://www.neighborhoodatlas.medicine.[facility].edu/. Last address used for calculation Not on file 01/21/2020 Education Answer Date Recorded What is the highest level of school you have completed or the highest degree you have received? Master's degree (e.g., MA, MS, Birgit, MEd, RIP AND GROOVE MACHINE OPERATOR, IVANIA) 10/15/2019 Comments No Sex [...] 12:30 PM EDT Infusion Center Hematology/Oncology [address] [place] [address] [place] [address] Carroll dressing and cap change;Labs as needed per patient 09/22/2024 12:30 PM EDT Office Visit Gastroenterology [address] [address] Gang Punch Operator, Grupo [address] [place] [address] HPN / PAGE [id number] 09/22/2024 1:00 PM EDT Office Visit Gastroenterology [address] [place] [address] Georgina Barkley MD [facility] [address] [place] [id number] HPN / PAGE [id number] 09/25/2024 9:00 AM EDT Infusion Center Hematology/Oncology [address] [place] [address] [place] [address] Hodges dressing and cap change;Labs as needed per patient 09/29/2024 10:15 AM EDT Appointment [facility] Endoscopy - ENDO [address] [place] [address] [place] [address] [place], [place] [phone] EGD 10/02/2024 9:00 AM EDT Infusion Center Hematology/Oncology [address] [place] [address] [place] [address] Hodges dressing and cap change;Labs as needed per patient 10/09/2024 9:00 AM EDT Infusion Center Hematology/Oncology [address] [place] [address] [place] [address] Hodges dressing and cap change;Labs as needed per patient documented as of this encounter Visit Diagnoses Not on filedocumented in this encounter Additional Health Concerns Infection Onset Date Last Indicated Resolved Time COVID-19 Rule-Out 01/29/2022 01/29/2022 01/29/2022 6:59 PM EST COVID-19 Rule-Out 06/06/2023 06/06/2023 06/06/2023 6:19 PM EDT documented as of this encounter Care Teams Geodetic Computator Relationship Specialty Start Date End Date Shanna June CNP [address] [place] [address] PCP - General Family Medicine 01/31/20 01/18/22 Rachel Foley MD [address] [place] [address] PCP - General Family Medicine 01/19/22 06/15/22 Anna Mendez APRN.UTILITY PLANT OPERATIVE [address] [address] [place] [address] PCP - General 06/16/22 07/29/23 Thomas Alas MD [address] [place] [address] PCP - General Family Medicine 07/30/23 Antelmo Davey MD [address] [place] [address] 09/25/19 [place] [address] [place] [address] Consulting General Surgery 09/25/19 Shanna June, BETH [address] [place] [address] Referring Family Medicine 10/19/19 Tj Najera PA [address] [place] [address] Referring Family Medicine 05/13/22 Georgina Barkley MD [address] [place] [address] Home Parenteral Nutrition Provider Gastroenterology 10/14/23 documented as of this encounter
--- OUTSIDE RECORDS SUMMARY | 2024-09-15 16:42 | XMS_ITS | Encounter Summary ---
Author Organization [facility] Address [address] [place] [address] Care Team Providers Care Sander Machine Name Role Phone Antelmo Davey MD Unavailable Deacon Valladares MD Unavailable [phone] Shanna June CNP Unavailable [phone] Shanna June CNP Primary Care Provider [phone] Rachel Foley MD Primary Care Provider [phone] Tj Najera Unavailable [phone] Anna Mendez APRN.[facility] Primary Care Provider Thomas Alas MD Primary Care Provider +-4 Georgina Barkley MD Unavailable [phone] Source Comments In the event this information is protected by the Federal Confidentiality of Alcohol and Drug AbusePatient Records regulations: The Federal rules restrict any use of the information to criminally investigate or prosecute any alcohol or drug abuse patient.[facility] Encounter Details Date Type Department Care Team (Late st Contact Info) Description 12/26/2020 Patient Msg [facility] [address] [place], [place] [id number] Provider, Ccf Plan of Care Social History Tobacco Use [...] ot on file 01/21/2020 Data from: https://www.neighborhoodatlas.medicine.[facility].edu/. Last address used for calculation Not on file 01/21/2020 Education Answer Date Recorded What is the highest level of school you have completed or the highest degree you have received? Master's degree (e.g., MA, MS, Birgit, MEd, APPRENTICE/LINEMAN, IVANIA) 10/15/2019 Comments No Sex and Gender [...] Contact Info) Description 09/18/2024 12:30 PM EDT [facility] Center Hematology/Oncology [address] [place] [address] [place] [address] Carroll dressing and cap change;Labs as needed per patient 09/22/2024 12:30 PM EDT Office Visit Gastroenterology [address] [address] [address] Assistant, Grupo [address] [place] [address] HPN / PAGE [id number] 09/22/2024 1:00 PM EDT Office Visit Gastroenterology [address] [address] Georgina Barkley MD [facility] [address] [id number] HPN / PAGE [id number] 09/25/2024 9:00 AM EDT Infusion Center Hematology/Oncology [address] [place] [address] [place] [address] Hodges dressing and cap change;Labs as needed per patient 09/29/2024 10:15 AM EDT Appointment [facility] Endoscopy - ENDO [address] [place] [address] [place] [address] [address] [id number] EGD 10/02/2024 9:00 AM EDT Infusion Center Hematology/Oncology [address] [place] [address] [place] [address] Hodges dressing and cap change;Labs as needed per patient 10/09/2024 9:00 AM EDT Infusion Center Hematology/Oncology [address] [place] [address] [place] [address] Hodges dressing and cap change;Labs as needed per patient documented as of this encounter Visit Diagnoses Not on filedocumented in this encounter Additional Health Concerns Infection Onset Date Last Indicated Resolved Time COVID-19 Rule-Out 01/29/2022 01/29/2022 01/29/2022 6:59 PM EST COVID-19 Rule-Out 06/06/2023 06/06/2023 06/06/2023 6:19 PM EDT documented as of this encounter Care Teams Sander Machine Relationship Specialty Start Date End Date Shanna June CNP [address] [place] [address] PCP - General Family Medicine 01/31/20 01/18/22 Rachel Foley MD [address] [place] [facility] [place] [address] PCP - General Family Medicine 01/19/22 06/15/22 Anna Mendez APRN.COCOA ROASTER [address] [address] PCP - General 06/16/22 07/29/23 Thomas Alas MD [address] [facility] [place] [address] PCP - General Family Medicine 07/30/23 Antelmo Davey MD [address] [facility] [place] [address] 09/25/19 [place] [address] [place] [address] Consulting General Surgery 09/25/19 Shanna June CNP [address] [place] [address] Referring Family Medicine 10/19/19 Tj Najera PA [address] [address] Referring Family Medicine 05/13/22 Georgina Barkley MD [address] [place] [address] Home Parenteral Nutrition Provider Gastroenterology 10/14/23 documented as of this encounter
--- OUTSIDE RECORDS SUMMARY | 2024-09-15 16:42 | XMS_ITS | Encounter Summary ---
Author Organization [facility] Address [address] [place] [address] Care Team Providers Care Film Writer Name Role Phone VanessaAnna hendricks YARD PIPE GRADER Unavailable Unallocated, Noms Provider Primary Care Provi pako Tj Najera Unavailable [phone] Thomas Alas MD Primary Care Provider [phone] Encounter Details Date Type Department Care Team (Late st Contact Info) Description 11/20/2022 Abstract [facility] [address] [place] [address] Tj Najera, PA [address] [facility] [place] [address] Social History Tobacco Use Types [...] on filedocumented in this encounter Care Teams Film Writer Relationship Specialty Start Date End Date Unallocated, Noms ProviderMD [address] [place] [address] PCP - General 07/23/22 12/13/23 Tj Najera PA [address] [place] [address] PCP - Medical [facility] 07/16/22 04/24/23 Thomas Alas MD [address] [place] [address] PCP - General Family Medicine 12/14/23 Anna Mendez NP [address] [place] [address] Referring Physician Family Medicine 07/23/22 documented as of this encounter
--- OUTSIDE RECORDS SUMMARY | 2024-09-15 16:42 | XMS_ITS | Encounter Summary ---
Author Organization [facility] Address [address] [place] [address] Care Team Providers Care Sales Development Specialist Name Role Phone Antelmo Davey MD Unavailable Deacon Valladares MD Unavailable Shanna June CNP Unavailable [phone] Shanna June CNP Primary Care Provider [phone] Rachel Foley MD Primary Care Provider [phone] Tj Najera Unavailable [phone] Anna Mendez APRN.[facility] Primary Care Provider Thomas Alas MD Primary Care Provider +-4 Georgina Barkley MD Unavailable [phone] Source Comments In the event this information is protected by the Federal Confidentiality of Alcohol and Drug AbusePatient Records regulations: The Federal rules restrict any use of the information to criminally investigate or prosecute any alcohol or drug abuse patient.[facility] Encounter Details Date Type Department Care Team (Late st Contact Info) Description 02/03/2021 Get Medical Advice BMI [facility] REJ [address] [facility] [address] [place] [address] [place], [place] [id number] Ultrasound Social History Tobacco Use Types Packs/Day Years [...] N ot on file 01/21/2020 Data from: https://www.neighborhoodatlas.medicine.[facility].edu/. Last address used for calculation Not on file 01/21/2020 Education Answer Date Recorded What is the highest level of school you have completed or the highest degree you have received? Master's degree (e.g., MA, MS, Birgit, MEd, BAND CUTTER, IVANIA) 10/15/2019 Comments No Sex and [...] have Coronavirus / COVID-19? No / Unsure 02/01/2021 8:37 AM EST documented as of this encounter [...] 09/18/2024 12:30 PM EDT Infusion Center Hematology/Oncology [address] [address] [place] [address] Hodges dressing and cap change;Labs as needed per patient 09/22/2024 12:30 PM EDT Office Visit Gastroenterology [address] [address] Tie Mill Operator, Grupo [address] [place] [address] GRUPO / PAGE [id number] 09/22/2024 1:00 PM EDT Office Visit Gastroenterology [address] [id number] Georgina Barkley MD [facility] [address] [id number] HPN / PAGE [id number] 09/25/2024 9:00 AM EDT Infusion Center Hematology/Oncology [address] [address] [place] [address] Hodges dressing and cap change;Labs as needed per patient 09/29/2024 10:15 AM EDT Appointment [facility] Endoscopy - ENDO [address] [place] [address] [place] [address] [place], [place] [id number] EGD 10/02/2024 9:00 AM EDT Infusion Center Hematology/Oncology [address] [address] [place] [address] Hodges dressing and cap change;Labs as needed per patient 10/09/2024 9:00 AM EDT Infusion Center Hematology/Oncology [address] [address] [place] [address] Hodges dressing and cap change;Labs as needed per patient documented as of this encounter Visit Diagnoses Not on filedocumented in this encounter Additional Health Concerns Infection Onset Date Last Indicated Resolved Time COVID-19 Rule-Out 01/29/2022 01/29/2022 01/29/2022 6:59 PM EST COVID-19 Rule-Out 06/06/2023 06/06/2023 06/06/2023 6:19 PM EDT documented as of this encounter Care Teams Sales Development Specialist Relationship Specialty Start Date End Date Shanna June CNP [address] [place] [address] PCP - General Family Medicine 01/31/20 01/18/22 Rachel Foley MD [address] [place] [address] PCP - General Family Medicine 01/19/22 06/15/22 Anna Mendez APRN.LEAD DIE MOLDER [address] [facility] [place] [address] PCP - General 06/16/22 07/29/23 Thomas Alas MD [address] [place] [address] PCP - General Family Medicine 07/30/23 Antelmo Davey MD [address] [place] [address] 09/25/19 [place] [address] [place] [address] Consulting General Surgery 09/25/19 Shanna June, BETH [address] [place] [address] Referring Family Medicine 10/19/19 Tj Najera PA [address] [place] [address] Referring Family Medicine 05/13/22 Georgina Barkley MD [address] [place] [address] Home Parenteral Nutrition Provider Gastroenterology 10/14/23 documented as of this encounter
--- OUTSIDE RECORDS SUMMARY | 2024-09-15 16:42 | XMS_ITS | Encounter Summary ---
Author Organization [facility] Address [address] [place] [address] Care Team Providers Care Batch Dumper Name Role Phone Antelmo Davey MD Unavailable [phone] Deacon Valladares MD Unavailable Shanna June CNP Unavailable +[phone] Shanna June CNP Primary Care Provider [phone] Rachel Foley MD Primary Care Provider [phone] Tj Najera Unavailable [phone] Anna Mendez APRN.[facility] Primary Care Provider Thomas Alas MD Primary Care Provider +-4 Georgina Barkley MD Unavailable [phone] Source Comments In the event this information is protected by the Federal Confidentiality of Alcohol and Drug AbusePatient Records regulations: The Federal rules restrict any use of the information to criminally investigate or prosecute any alcohol or drug abuse patient.[facility] Encounter Details Date Type Department Care Team (Late st Contact Info) Description 01/28/2021 Get Medical Advice Gastroenterology [address] [address] Kasie Avalos MD [address] [place] [address] POC Social History Tobacco Use Types Packs/Day [...] N ot on file 01/21/2020 Data from: https://www.neighborhoodatlas.medicine.[facility].edu/. Last address used for calculation Not on file 01/21/2020 Education Answer Date Recorded What is the highest level of school you have completed or the highest degree you have received? Master's degree (e.g., MA, MS, Birgit, MEd, PRICE CHECKER, IVANIA) 10/15/2019 Comments No Sex and Gender [...] have Coronavirus / COVID-19? No / Unsure 01/29/2021 3:00 PM EST documented as of this encounter [...] 12:30 PM EDT Infusion Center Hematology/Oncology [address] [place] [address] [place] [address] Hodges dressing and cap change;Labs as needed per patient 09/22/2024 12:30 PM EDT Office Visit Gastroenterology [address] [address] Voice Writing Reporter, Grupo [address] [place] [address] HPN / PAGE [id number] 09/22/2024 1:00 PM EDT Office Visit Gastroenterology [address] [phone] Georgina Barkley MD [facility] [address] [id number] HPN / PAGE [id number] 09/25/2024 9:00 AM EDT Infusion Center Hematology/Oncology [address] [place] [address] [place] [address] Hodges dressing and cap change;Labs as needed per patient 09/29/2024 10:15 AM EDT Appointment [facility] Endoscopy - ENDO [address] [place] [address] [place] [address] [place], [place] [phone] EGD 10/02/2024 9:00 AM EDT Infusion Center Hematology/Oncology [address] [place] [address] [place] [address] Hodges dressing and cap change;Labs as needed per patient 10/09/2024 9:00 AM EDT Infusion Center Hematology/Oncology [address] [place] [address] [place] [address] Hodges dressing and cap change;Labs as needed per patient documented as of this encounter Visit Diagnoses Not on filedocumented in this encounter Additional Health Concerns Infection Onset Date Last Indicated Resolved Time COVID-19 Rule-Out 01/29/2022 01/29/2022 01/29/2022 6:59 PM EST COVID-19 Rule-Out 06/06/2023 06/06/2023 06/06/2023 6:19 PM EDT documented as of this encounter Care Teams Batch Dumper Relationship Specialty Start Date End Date Shanna June CNP [address] [place] [address] PCP - General Family Medicine 01/31/20 01/18/22 Rachel Foley MD [address] [place] [address] PCP - General Family Medicine 01/19/22 06/15/22 Anna Mendez APRN.TECHNOLOGY TRAINER [address] [facility] 150 [place] [address] PCP - General 06/16/22 07/29/23 Thomas Alas MD [address] [place] [address] PCP - General Family Medicine 07/30/23 Antelmo Davey MD [address] [place] [address] 09/25/19 [place] [address] [place] [address] Consulting General Surgery 09/25/19 Shanna June, BETH [address] [place] [address] Referring Family Medicine 10/19/19 Tj Najera PA [address] [address] Referring Family Medicine 05/13/22 Georgina Barkley MD [address] [place] [address] Home Parenteral Nutrition Provider Gastroenterology 10/14/23 documented as of this encounter
--- OUTSIDE RECORDS SUMMARY | 2024-09-15 16:42 | XMS_ITS | Encounter Summary ---
Author Organization [facility] Address [address] [place] [address] Care Team Providers Care Certified Breastfeeding Educator Name Role Phone Antelmo Davey MD Unavailable [phone] Deacon Valladares MD Unavailable Shanna June CNP Unavailable +[phone] Shanna June CNP Primary Care Provider [phone] Rachel Foley MD Primary Care Provider [phone] Tj Najera Unavailable [phone] Anna Mendez APRN.[facility] Primary Care Provider Thomas Alas MD Primary Care Provider +-4 Georgina Barkley MD Unavailable [phone] Source Comments In the event this information is protected by the Federal Confidentiality of Alcohol and Drug AbusePatient Records regulations: The Federal rules restrict any use of the information to criminally investigate or prosecute any alcohol or drug abuse patient.[facility] Encounter Details Date Type Department Care Team (Late st Contact Info) Description 12/20/2020 Patient Msg [facility] [address] [place] [address] Provider, Ccf Time Sensitive Instructions Reminder regarding your upcoming Manometry Esophageal w/pH Please follow Directions carefully Thank you Social History Tobacco Use [...] on file 01/21/2020 Data from: https://www.neighborhoodatlas.medicine.[facility].edu/. Last address used for calculation Not on file 01/21/2020 Education Answer Date Recorded What is the highest level of school you have completed or the highest degree you have received? Master's degree (e.g., MA, MS, Birgit, MEd, MECHANICAL MAINTENANCE FOREMAN, IVANIA) 10/15/2019 Comments No Sex and Gender [...] Contact Info) Description 09/18/2024 12:30 PM EDT [facility] Hematology/Oncology [address] [place] [address] [place] [address] Hodges dressing and cap change;Labs as needed per patient 09/22/2024 12:30 PM EDT Office Visit Gastroenterology [address] [address] Electron Beam Operator, Grupo [address] [place] [address] HPN / PAGE [id number] 09/22/2024 1:00 PM EDT Office Visit Gastroenterology [address] [phone] Georgina Barkley MD [facility] [place] [facility] [address] [place] [address] HPN / PAGE [id number] 09/25/2024 9:00 AM EDT Infusion Center Hematology/Oncology [address] [place] [address] [place] [address] Hodges dressing and cap change;Labs as needed per patient 09/29/2024 10:15 AM EDT Appointment [facility] Endoscopy - ENDO [address] [place] [address] [place] [address] [place] [address] EGD 10/02/2024 9:00 AM EDT Infusion Center Hematology/Oncology [address] [place] [address] [place] [address] Hodges dressing and cap change;Labs as needed per patient 10/09/2024 9:00 AM EDT Infusion Center Hematology/Oncology [address] [place] [address] [place] [address] Hodges dressing and cap change;Labs as needed [...] documented as of this encounter Care Teams Certified Breastfeeding Educator Relationship Specialty Start Date End Date Shanna June CNP [address] [place] [address] PCP - General Family Medicine 01/31/20 01/18/22 Rachel Foley MD [address] [place] [address] PCP - General Family Medicine 01/19/22 06/15/22 Anna Mendez APRN.FILTERING MACHINE TENDER [address] [facility] 150 [place] [address] PCP - General 06/16/22 07/29/23 Thomas Alas MD [address] [place] [address] PCP - General Family Medicine 07/30/23 Antelmo Davey MD [address] [place] [address] 09/25/19 [place] [address] [place] [address] Consulting General Surgery 09/25/19 Shanna June, BETH [address] [place] [address] Referring Family Medicine 10/19/19 Tj Najera PA [address] [facility] 150 [place] [address] Referring Family Medicine 05/13/22 Georgina Barkley MD [address] [place] [address] Home Parenteral Nutrition Provider Gastroenterology 10/14/23 documented as of this encounter
--- OUTSIDE RECORDS SUMMARY | 2024-09-15 16:42 | XMS_ITS | Encounter Summary ---
Author Organization [facility] Address [address] [place] [address] Care Team Providers Care Product Tester Name Role Phone VanessaAnna hendricks ASSISTANT PROFESSOR OF HISTORY Unavailable Unallocated, Noms Provider Primary Care Provi pako Tj Najera Unavailable [phone] Thomas Alas MD Primary Care Provider [phone] Encounter Details Date Type Department Care Team (Late st Contact Info) Description 10/02/2022 Abstract AMAN Edmondson OBRIDDHI [address] [facility] [address] Raegan Frye PA [address] [facility] [address] [place], [place] [id number] Social History Tobacco Use Types Packs/Day Years [...] on filedocumented in this encounter Care Teams Product Tester Relationship Specialty Start Date End Date Unallocated, [place] [address] PCP - General 07/23/22 12/13/23 Tj Najera PA [address] [place] [address] PCP - Medical [facility] 07/16/22 04/24/23 Thomas Alas MD [address] [place] [address] PCP - General Family Medicine 12/14/23 Anna Mendez NP [address] [place] [address] Referring Physician Family Medicine 07/23/22 documented as of this encounter
--- OUTSIDE RECORDS SUMMARY | 2024-09-15 16:42 | XMS_ITS | Encounter Summary ---
Author Organization [facility] Address [address] [place] [address] Care Team Providers Care Library Paraprofessional Name Role Phone Antelmo Davey MD Unavailable [phone] Deacon Valladares MD Unavailable Shanna June CNP Unavailable [phone] Shanna June CNP Primary Care Provider [phone] Rachel Foley MD Primary Care Provider [phone] Tj Najera Unavailable [phone] Anna Mendez APRN.[facility] Primary Care Provider Thomas Alas MD Primary Care Provider +-4 Georgina Barkley MD Unavailable [phone] Source Comments In the event this information is protected by the Federal Confidentiality of Alcohol and Drug AbusePatient Records regulations: The Federal rules restrict any use of the information to criminally investigate or prosecute any alcohol or drug abuse patient.[facility] Encounter Details Date Type Department Care Team (Late st Contact Info) Description 03/14/2021 Get Medical Advice General Surgery 9[address] [place] [address] Breanna Boyer APRN.MARKETING OPERATIONS CONSULTANT [address] [place], [place] [phone] Labs Social History Tobacco Use Types Packs/Day Years [...] on file 01/21/2020 Data from: https://www.neighborhoodatlas.medicine.[facility].edu/. Last address used for calculation Not on file 01/21/2020 Education Answer Date Recorded What is the highest level of school you have completed or the highest degree you have received? Master's degree (e.g., MA, MS, Birgit, MEd, COMMERCIAL LOAN UNDERWRITER, IVANIA) 10/15/2019 Comments No Sex and Gender [...] have Coronavirus / COVID-19? No / Unsure 03/13/2021 10:00 AM EST documented as of this encounter [...] 12:30 PM EDT Infusion Center Hematology/Oncology [address] [place] [address] [place] [address] Hodges dressing and cap change;Labs as needed per patient 09/22/2024 12:30 PM EDT Office Visit Gastroenterology [address] [phone] Barn Hand, Grupo [address] [place] [address] GRUPO / PAGE [id number] 09/22/2024 1:00 PM EDT Office Visit Gastroenterology [address] [phone] Georgina Barkley MD [facility] [address] [place] [address] [id number] HPN / PAGE [id number] 09/25/2024 9:00 AM EDT Infusion Center Hematology/Oncology [address] [place] [address] [place] [address] Hodges dressing and cap change;Labs as needed per patient 09/29/2024 10:15 AM EDT Appointment [facility] Endoscopy - ENDO [address] [place] [address] [place] [address] [place], [place] [phone] EGD 10/02/2024 9:00 AM EDT Infusion Center Hematology/Oncology [address] [place] [address] [place] [address] Hodges dressing and cap change;Labs as needed per patient 10/09/2024 9:00 AM EDT Infusion Center Hematology/Oncology [address] [place] [address] [place] [address] Hodges dressing and cap change;Labs as needed per patient documented as of this encounter Visit Diagnoses Not on filedocumented in this encounter Additional Health Concerns Infection Onset Date Last Indicated Resolved Time COVID-19 Rule-Out 01/29/2022 01/29/2022 01/29/2022 6:59 PM EST COVID-19 Rule-Out 06/06/2023 06/06/2023 06/06/2023 6:19 PM EDT documented as of this encounter Care Teams Library Paraprofessional Relationship Specialty Start Date End Date Shanna June CNP [address] [place] [address] PCP - General Family Medicine 01/31/20 01/18/22 Rachel Foley MD [address] [facility] [address] PCP - General Family Medicine 01/19/22 06/15/22 Anna Mendez APRN.MARKETING OPERATIONS CONSULTANT [address] [facility] 150 [place] [address] PCP - General 06/16/22 07/29/23 Thomas Alas MD [address] [place] [address] PCP - General Family Medicine 07/30/23 Antelmo Davey MD [address] [place] [address] 09/25/19 [place] [address] [place] [address] Consulting General Surgery 09/25/19 Shanna June, BETH [address] [place] [address] Referring Family Medicine 10/19/19 Tj Najera PA [address] [address] Referring Family Medicine 05/13/22 Georgina Barkley MD [address] [place] [address] Home Parenteral Nutrition Provider Gastroenterology 10/14/23 documented as of this encounter
--- OUTSIDE RECORDS SUMMARY | 2024-09-15 16:42 | XMS_ITS | Encounter Summary ---
Author Organization [facility] Address [address] [place] [address] Care Team Providers Care Manager Strategic Partnerships Name Role Phone Antelmo Davey MD Unavailable Deacon Valladares MD Unavailable [phone] Shanna June CNP Unavailable [phone] Shanna June CNP Primary Care Provider [phone] Rachel Foley MD Primary Care Provider [phone] Tj Najera Unavailable [phone] Anna Mendez APRN.[facility] Primary Care Provider Thomas Alas MD Primary Care Provider +-4 Georgina Barkley MD Unavailable [phone] Source Comments In the event this information is protected by the Federal Confidentiality of Alcohol and Drug AbusePatient Records regulations: The Federal rules restrict any use of the information to criminally investigate or prosecute any alcohol or drug abuse patient.[facility] Encounter Details Date Type Department Care Team (Late st Contact Info) Description 12/25/2020 Get Medical Advice BMI [facility] REJ [address] [facility] [place] [address] [place] [address] [address] [place], [place] [id number] Health Update Social History Tobacco Use Types Packs/Day Years [...] ot on file 01/21/2020 Data from: https://www.neighborhoodatlas.medicine.[facility].edu/. Last address used for calculation Not on file 01/21/2020 Education Answer Date Recorded What is the highest level of school you have completed or the highest degree you have received? Master's degree (e.g., MA, MS, Birgit, MEd, MANAGER IN HOME, IVANIA) 10/15/2019 Comments No Sex and Gender [...] 12:30 PM EDT Infusion Center Hematology/Oncology [address] [place] [address] [place] [address] Hodges dressing and cap change;Labs as needed per patient 09/22/2024 12:30 PM EDT Office Visit Gastroenterology [address] [address] Solidworks Designer, Grupo [address] [place] [address] HPN / PAGE [id number] 09/22/2024 1:00 PM EDT Office Visit Gastroenterology [address] [phone] Georgina Barkley MD [facility] [address] [id number] HPN / PAGE [id number] 09/25/2024 9:00 AM EDT Infusion Center Hematology/Oncology [address] [place] [address] [place] [address] Hodegs dressing and cap change;Labs as needed per patient 09/29/2024 10:15 AM EDT Appointment [facility] Endoscopy - ENDO [address] [place] [address] [place] [address] [place] [address] EGD 10/02/2024 9:00 AM EDT Infusion Center Hematology/Oncology [address] [place] [address] [place] [address] Hodges dressing and cap change;Labs as needed per patient 10/09/2024 9:00 AM EDT Infusion Center Hematology/Oncology [address] [place] [address] [place] [address] Hodges dressing and cap change;Labs as needed [...] as of this encounter Care Teams Manager Strategic Partnerships Relationship Specialty Start Date End Date Shanna June CNP [address] [place] [address] PCP - General Family Medicine 01/31/20 01/18/22 Rachel Foley MD [address] [place] [address] PCP - General Family Medicine 01/19/22 06/15/22 Anna Mendez APRN.DISPATCHER STREET DEPARTMENT [address] [address] PCP - General 06/16/22 07/29/23 Thomas Alas MD [address] [place] [address] PCP - General Family Medicine 07/30/23 Antelmo Davey MD [address] [place] [address] 09/25/19 [place] [address] [place] [address] Consulting General Surgery 09/25/19 Shanna June, BETH [address] [place] [address] Referring Family Medicine 10/19/19 Tj Najera PA [address] [place] [address] Referring Family Medicine 05/13/22 Georgina Barkley MD [address] [place] [address] Home Parenteral Nutrition Provider Gastroenterology 10/14/23 documented as of this encounter
--- OUTSIDE RECORDS SUMMARY | 2024-09-15 16:42 | XMS_ITS | Encounter Summary ---
Author Organization [facility] Address [address] [place] [address] Care Team Providers Care Mold Closer Helper Name Role Phone Antelmo Davey MD Unavailable Deacon Valladares MD Unavailable Shanna June CNP Unavailable +[phone] Shanna June CNP Primary Care Provider [phone] Rachel Foley MD Primary Care Provider [phone] Tj Najera Unavailable [phone] Anna Mendez APRN.[facility] Primary Care Provider Thomas Alas MD Primary Care Provider +-4 Georgina Barkley MD Unavailable [phone] Source Comments In the event this information is protected by the Federal Confidentiality of Alcohol and Drug AbusePatient Records regulations: The Federal rules restrict any use of the information to criminally investigate or prosecute any alcohol or drug abuse patient.[facility] Encounter Details Date Type Department Care Team (Late st Contact Info) Description 02/27/2021 Get Medical Advice BMI [facility] REJ [id number] [facility] [address] [place] [place] [address] [place] [address] [place], [place] [id number] Symptoms question Social History Tobacco Use Types Packs/Day Years [...] N ot on file 01/21/2020 Data from: https://www.neighborhoodatlas.medicine.[facility].edu/. Last address used for calculation Not on file 01/21/2020 Education Answer Date Recorded What is the highest level of school you have completed or the highest degree you have received? Master's degree (e.g., MA, MS, Birgit, MEd, BUS AND TROLLEY INSPECTING DISPATCHER, IVANIA) 10/15/2019 Comments No Sex and Gender [...] 12:30 PM EDT Infusion Center Hematology/Oncology [address] [place] [address] [place] [address] Hodges dressing and cap change;Labs as needed per patient 09/22/2024 12:30 PM EDT Office Visit Gastroenterology [address] [address] Customs And Border Protection Officer, Grupo [address] [place] [address] HPN / PAGE [id number] 09/22/2024 1:00 PM EDT Office Visit Gastroenterology [address] [place] [address] [id number] Georgina Barkley MD [facility] [address] [place] [address] [id number] HPN / PAGE [id number] 09/25/2024 9:00 AM EDT Infusion Center Hematology/Oncology [address] [place] [address] [place] [address] Hodges dressing and cap change;Labs as needed per patient 09/29/2024 10:15 AM EDT Appointment [facility] Endoscopy - ENDO [address] [place] [address] [place] [address] [place], [place] [id number] EGD 10/02/2024 9:00 AM EDT Infusion Center Hematology/Oncology [address] [place] [address] [place] [address] Hodges dressing and cap change;Labs as needed per patient 10/09/2024 9:00 AM EDT Infusion Center Hematology/Oncology [address] [place] [address] [place] [address] Hodges dressing and cap change;Labs as needed per patient documented as of this encounter Visit Diagnoses Not on filedocumented in this encounter Additional Health Concerns Infection Onset Date Last Indicated Resolved Time COVID-19 Rule-Out 01/29/2022 01/29/2022 01/29/2022 6:59 PM EST COVID-19 Rule-Out 06/06/2023 06/06/2023 06/06/2023 6:19 PM EDT documented as of this encounter Care Teams Mold Closer Helper Relationship Specialty Start Date End Date Shanna June CNP [address] [place] [address] PCP - General Family Medicine 01/31/20 01/18/22 Rachel Foley MD [address] [place] [address] PCP - General Family Medicine 01/19/22 06/15/22 Anna Mendez APRN.DISASTER RESPONSE DIRECTOR [address] [facility] [place] [address] PCP - General 06/16/22 07/29/23 Thomas Alas MD [address] [place] [address] PCP - General Family Medicine 07/30/23 Antelmo Davey MD [address] [place] [address] 09/25/19 [place] [address] [place] [address] Consulting General Surgery 09/25/19 Shanna June, BETH [address] [place] [address] Referring Family Medicine 10/19/19 Tj Najera PA [address] [place] [address] Referring Family Medicine 05/13/22 Georgina Barkley MD [address] [place] [address] Home Parenteral Nutrition Provider Gastroenterology 10/14/23 documented as of this encounter
--- OUTSIDE RECORDS SUMMARY | 2024-09-15 16:42 | XMS_ITS | Encounter Summary ---
Author Organization [facility] Address [address] [place] [address] Care Team Providers Care Heel Lift Gouger Name Role Phone Antelmo Davey MD Unavailable [phone] Deacon Valladares MD Unavailable Shanna June CNP Unavailable [phone] Shanna June CNP Primary Care Provider [phone] Rachel Foley MD Primary Care Provider [phone] Tj Najera Unavailable [phone] Anna Mendez APRN.[facility] Primary Care Provider Thomas Alas MD Primary Care Provider +-4 Georgina Barkley MD Unavailable [phone] Source Comments In the event this information is protected by the Federal Confidentiality of Alcohol and Drug AbusePatient Records regulations: The Federal rules restrict any use of the information to criminally investigate or prosecute any alcohol or drug abuse patient.[facility] Encounter Details Date Type Department Care Team (Late st Contact Info) Description 02/03/2021 Get Medical Advice BMI [facility] REJ [address] [facility] [place] [place] [address] [place] [address] [place], [place] [phone] Hernia Repair Question Social History Tobacco Use Types Packs/Day [...] file 01/21/2020 Data from: https://www.neighborhoodatlas.medicine.[facility].edu/. Last address used for calculation Not on file 01/21/2020 Education Answer Date Recorded What is the highest level of school you have completed or the highest degree you have received? Master's degree (e.g., MA, MS, Birgit, MEd, CERTIFIED ADAPTIVE PHYSICAL EDUCATOR, IVANIA) 10/15/2019 Comments No Sex and Gender [...] 12:30 PM EDT Infusion Center Hematology/Oncology [address] [place] [address] [place] [address] Carroll dressing and cap change;Labs as needed per patient 09/22/2024 12:30 PM EDT Office Visit Gastroenterology [address] [address] Manager Of School, Grupo [address] [place] [address] HPN / PAGE [id number] 09/22/2024 1:00 PM EDT Office Visit Gastroenterology [address] [id number] Georgina Barkley MD [facility] [address] [place] [address] [id number] HPN / PAGE [id number] 09/25/2024 9:00 AM EDT Infusion Center Hematology/Oncology [address] [place] [address] [place] [address] Hodges dressing and cap change;Labs as needed per patient 09/29/2024 10:15 AM EDT Appointment [facility] Endoscopy - ENDO [address] [place] [address] [place] [address] [place], [place] [id number] EGD 10/02/2024 9:00 AM EDT Infusion Center Hematology/Oncology [address] [place] [address] [place] [address] Hodges dressing and cap change;Labs as needed per patient 10/09/2024 9:00 AM EDT Infusion Center Hematology/Oncology [address] [place] [address] [place] [address] Hodges dressing and cap change;Labs as needed per patient documented as of this encounter Visit Diagnoses Not on filedocumented in this encounter Additional Health Concerns Infection Onset Date Last Indicated Resolved Time COVID-19 Rule-Out 01/29/2022 01/29/2022 01/29/2022 6:59 PM EST COVID-19 Rule-Out 06/06/2023 06/06/2023 06/06/2023 6:19 PM EDT documented as of this encounter Care Teams Heel Lift Gouger Relationship Specialty Start Date End Date Shanna June CNP [address] [place] [address] PCP - General Family Medicine 01/31/20 01/18/22 Rachel Foley MD [address] [place] [address] PCP - General Family Medicine 01/19/22 06/15/22 Anna Mendez APRN.FURNITURE ASSEMBLER [address] [address] [place] [address] PCP - General 06/16/22 07/29/23 Thomas Alas MD [address] [place] [address] PCP - General Family Medicine 07/30/23 Antelmo Davey MD [address] [place] [address] 09/25/19 [place] [address] [place] [address] Consulting General Surgery 09/25/19 Shanna June, BETH [address] [place] [address] Referring Family Medicine 10/19/19 Tj Najera PA [address] [place] [address] Referring Family Medicine 05/13/22 Georgina Barkley MD [address] [place] [address] Home Parenteral Nutrition Provider Gastroenterology 10/14/23 documented as of this encounter
--- OUTSIDE RECORDS SUMMARY | 2024-09-15 16:42 | XMS_ITS | Encounter Summary ---
Author Organization [facility] Address [address] [place] [address] Care Team Providers Care Campaign Director Name Role Phone Antelmo Davey MD Unavailable [phone] Deacon Valladares MD Unavailable [phone] Shanna June CNP Unavailable [phone] Shanna June CNP Primary Care Provider [phone] Rachel Foley MD Primary Care Provider [phone] Tj Najera Unavailable [phone] Anna Mendez APRN.[facility] Primary Care Provider Thomas Alas MD Primary Care Provider +-4 Georgina Barkley MD Unavailable [phone] Source Comments In the event this information is protected by the Federal Confidentiality of Alcohol and Drug AbusePatient Records regulations: The Federal rules restrict any use of the information to criminally investigate or prosecute any alcohol or drug abuse patient.[facility] Encounter Details Date Type Department Care Team (Late st Contact Info) Description 12/20/2020 Get Medical Advice BMI [facility] REJ [address] [address] [place] [address] [place], [place] [phone] Upcoming Appointment Question Social History Tobacco Use [...] on file 01/21/2020 Data from: https://www.neighborhoodatlas.medicine.[facility].edu/. Last address used for calculation Not on file 01/21/2020 Education Answer Date Recorded What is the highest level of school you have completed or the highest degree you have received? Master's degree (e.g., MA, MS, Birgit, MEd, PAPER AND PULP MILL OPERATOR, IVANIA) 10/15/2019 Comments No Sex and [...] 12:30 PM EDT Infusion Center Hematology/Oncology [address] [place] [address] [place] [address] Carroll dressing and cap change;Labs as needed per patient 09/22/2024 12:30 PM EDT Office Visit Gastroenterology [address] [address] Back Stayer, Hpn [address] [place] [address] HPN / PAGE [id number] 09/22/2024 1:00 PM EDT Office Visit Gastroenterology [address] [id number] Georgina Barkley MD [facility] [address] [id number] HPN / PAGE [id number] 09/25/2024 9:00 AM EDT Infusion Center Hematology/Oncology [address] [place] [address] [place] [address] Hodges dressing and cap change;Labs as needed per patient 09/29/2024 10:15 AM EDT Appointment [facility] Endoscopy - ENDO [address] [place] [address] [place] [address] [place] [address] EGD 10/02/2024 9:00 AM EDT Infusion Center Hematology/Oncology [address] [place] [address] [place] [address] Hodges dressing and cap change;Labs as needed per patient 10/09/2024 9:00 AM EDT Infusion Center Hematology/Oncology [address] [place] [address] [place] [address] Hodges dressing and cap change;Labs as needed [...] documented as of this encounter Care Teams Campaign Director Relationship Specialty Start Date End Date Shanna uJne CNP [address] [place] [address] PCP - General Family Medicine 01/31/20 01/18/22 Rachel Foley MD [address] [place] [address] PCP - General Family Medicine 01/19/22 06/15/22 Anna Mendez APRN.PHOTOGRAMMETRIST [address] [address] PCP - General 06/16/22 07/29/23 Thomas Alas MD [address] [place] [address] PCP - General Family Medicine 07/30/23 Antelmo Davey MD [address] [place] [address] 09/25/19 [place] [address] [place] [address] Consulting General Surgery 09/25/19 Sahnna June, BETH [address] [place] [address] Referring Family Medicine 10/19/19 Tj Najera PA [address] [address] Referring Family Medicine 05/13/22 Georgina Barkley MD [address] [place] [address] Home Parenteral Nutrition Provider Gastroenterology 10/14/23 documented as of this encounter
--- OUTSIDE RECORDS SUMMARY | 2024-09-15 16:42 | XMS_ITS | Encounter Summary ---
Author Organization [facility] Address [address] [place] [address] Care Team Providers Care Sole Rounding Machine Operator Name Role Phone Antelmo Davey MD Unavailable [phone] Deacon Valladares MD Unavailable Shanna June CNP Unavailable +[phone] Shanna June CNP Primary Care Provider [phone] Rachel Foley MD Primary Care Provider [phone] Tj Najera Unavailable [phone] Anna Mendez APRN.[facility] Primary Care Provider Thomas Alas MD Primary Care Provider +-4 Georgina Barkley MD Unavailable [phone] Source Comments In the event this information is protected by the Federal Confidentiality of Alcohol and Drug AbusePatient Records regulations: The Federal rules restrict any use of the information to criminally investigate or prosecute any alcohol or drug abuse patient.[facility] Encounter Details Date Type Department Care Team (Late st Contact Info) Description 01/27/2021 Get Medical Advice Gastroenterology [address] [address] Kasie Avalos MD [address] [place] [address] Activity and hernia issue Social History Tobacco Use Types Packs/Day Years [...] Master's degree (e.g., MA, MS, Birgit, MEd, ORDER DESK CLERK, IVANIA) 10/15/2019 Comments No Sex and [...] 09/18/2024 12:30 PM EDT Infusion Center Hematology/Oncology [address] [place] [address] [place] [address] Hodges dressing and cap change;Labs as needed per patient 09/22/2024 12:30 PM EDT Office Visit Gastroenterology [address] [address] Medical Assistant Float, Grupo [address] [place] [address] GRUPO / PAGE [id number] 09/22/2024 1:00 PM EDT Office Visit Gastroenterology [address] [place] [address] [id number] Georgina Barkley MD [facility] [address] [place] [address] [id number] HPN / PAGE [id number] 09/25/2024 9:00 AM EDT Infusion Center Hematology/Oncology [address] [place] [address] [place] [address] Hodges dressing and cap change;Labs as needed per patient 09/29/2024 10:15 AM EDT Appointment [facility] Endoscopy - ENDO [address] [place] [address] [place] [address] [place], [place] [id number] EGD 10/02/2024 9:00 AM EDT Infusion Center Hematology/Oncology [address] [place] [address] [place] [address] Hodges dressing and cap change;Labs as needed per patient 10/09/2024 9:00 AM EDT Infusion Center Hematology/Oncology [address] [place] [address] [place] [address] Hodges dressing and cap change;Labs as needed per patient documented as of this encounter Visit Diagnoses Not on filedocumented in this encounter Additional Health Concerns Infection Onset Date Last Indicated Resolved Time COVID-19 Rule-Out 01/29/2022 01/29/2022 01/29/2022 6:59 PM EST COVID-19 Rule-Out 06/06/2023 06/06/2023 06/06/2023 6:19 PM EDT documented as of this encounter Care Teams Sole Rounding Machine Operator Relationship Specialty Start Date End Date Shanna June CNP [address] [place] [address] PCP - General Family Medicine 01/31/20 01/18/22 Rachel Foley MD [address] [place] [address] PCP - General Family Medicine 01/19/22 06/15/22 Anna Mendez APRN.BUSINESS DEVELOPMENT EXECUTIVE [address] [facility] [place] [address] PCP - General 06/16/22 07/29/23 Thomas Alas MD [address] [place] [address] PCP - General Family Medicine 07/30/23 Antelmo Davey MD [address] [place] [address] 09/25/19 [place] [address] [place] [address] Consulting General Surgery 09/25/19 Shanna June, BETH [address] [place] [address] Referring Family Medicine 10/19/19 Tj Najera PA [address] [place] [address] Referring Family Medicine 05/13/22 Georgina Barkley MD [address] [place] [address] Home Parenteral Nutrition Provider Gastroenterology 10/14/23 documented as of this encounter
--- OUTSIDE RECORDS SUMMARY | 2024-09-15 16:42 | XMS_ITS | Encounter Summary ---
Author Organization [facility] Address [address] [place] [address] Care Team Providers Care Lapel Padder Blindstitch Name Role Phone Anna Mendez DYE HOUSE WORKER Unavailable Unallocated, Noms Provider Primary Care Provi pako Tj Najera Unavailable [phone] Thomas Alas MD Primary Care Provider [phone] Encounter Details Date Type Department Care Team (Late st Contact Info) Description 10/30/2022 Abstract [facility] [address] [place] [address] Tj Najera, PA [address] [place] [address] Social History Tobacco Use Types [...] on filedocumented in this encounter Care Teams Lapel Padder Blindstitch Relationship Specialty Start Date End Date Unallocated, Noms ProviderMD [address] [address] PCP - General 07/23/22 12/13/23 Tj Najera PA [address] [place] [address] PCP - Medical [facility] 07/16/22 04/24/23 Thomas Alas MD [address] [place] [address] PCP - General Family Medicine 12/14/23 Anna Mendez NP [address] [place] [address] Referring Physician Family Medicine 07/23/22 documented as of this encounter
--- OUTSIDE RECORDS SUMMARY | 2024-09-15 16:43 | XMS_ITS | Clinical Summary ---
Author Organization [facility] Address [address] [place] [address] Care Team Providers Care Chief Operator Reformer Name Role Phone Antelmo Davey MD Unavailable [phone] Deacon Valladares MD Unavailable Shanna June CNP Unavailable Tj Najera Unavailable [phone] Thomas Alas MD Primary Care Provider [phone] Marissa Barkley MD Unavailable [phone] Allergies Active Allergy Reactions Criticality Noted Date Comments Adhesive Tape-Silicones Intolerance Medium 02/07/2020 Sensitive to certain adhesive tapes. Redness and itchy. Codeine GI Upset Medium 10/04/2019 Nsaids (Non-Steroidal Anti-Inflammatory Drug) Contraindication-Medica l Surgical 01/29/2022 S/p RYGB Medications * This document contains information received from the source organization and may not represent a complete record from that organization. liothyronine (CYTOMEL) 5 mcg tablet Take 5 mcg by mouth once daily. 020 Active topiramate (TOPAMAX) 100 mg tablet Take 100 mg by mouth two times a day. Active fluticasone-salm eterol (ADVAIR DISKUS) 100-50 mcg/dose inhaler Inhale 1 Puff as instructed every 12 hours. 022 Active docusate sodium (COLACE) 100 mg capsule Take 1 capsule by mouth two times a day as needed for constipation. Active levothyroxine (SYNTHROID) 75 mcg tabletIndication s:Hypothyroidism , unspecified type Take 1 tablet by mouth once daily. 90 tablet Active prochlorperazine (COMPAZINE) 10 mg tablet Take 1 tablet by mouth every 6 hours as needed for nausea/vomiting. 15 tablet Active methocarbamol (ROBAXIN) 750 mg tablet Take 750 mg by mouth three times a day. Active acetaminophen 325 mg-caffeine 40 mg-butalbital 50 mg (FIORICET) per tablet Take 1 tablet by mouth every 4 hours as needed for headache. Active albuterol HFA (PROVENTIL HFA, VENTOLIN HFA) 90 mcg/actuation inhaler Inhale 2 Puffs as instructed every 4 hours as needed for wheezing/shortnes s of breath. 1 Each Active ondansetron orally disintegrating (ZOFRAN ODT) 8 mg disintegrating tablet Take 1 tablet by mouth every 8 hours as needed for nausea/vomiting. 20 tablet Active Miscellaneous Medical Supply kit 1 Each every 2 weeks. tagWALLET MiniOne Button ENFit feeding extension set: 12 inch right angle - Ref # [id number] 12 inch straight angle - Ref # [id number] 1 Kit 11 Active flash glucose scanning reader (FREESTYLE VÍCTOR 2 READER)Indicatio ns:Steroid-induc ed hyperglycemia Check sugar four times a day 1 Each Active flash glucose sensor (FREESTYLE VÍCTOR 2 SENSOR) kitIndications:S teroid-induced hyperglycemia Check sugar four times a day 6 Each 3 Active polyethylene glycol 3350 17 gram packet Take 1 Packet by mouth once daily. Dissolve dose in 4 - 8 ounces of liquid and take as directed. Active nut.tx.impaired digest fxn (PEPTAMEN 1.5) 0.068 gram- 1.5 kcal/mL 45 mL/hr by FEEDING TUBE route once daily. Start at 10 ml/hr and adv as tolerated. Eventual goal 45 ml/hr x 22 hrs (hold 1 hr before and after giving synthroid) to provide 1000mL/day or 4 tetrapacks per day 53680 mL 5 024 Active omeprazole (PRILOSEC) 40 mg capsule Take 1 capsule by mouth two times a day. 180 capsule 1 025 Active HYDROcodone-acet aminophen (NORCO) 5-325 mg per tablet Take 1 tablet by mouth every 4 hours as needed for pain. 0 Active fentaNYL (DURAGESIC) 25 mcg/hr Apply 1 Patch as directed every 72 hours. Do not cut patch. 0 Active Syringe with Needle, Disp, (BD LUER-LENY SYRINGE) 3 mL 25 x 1 1/2 use to draw up as needed (with solucortef for adrenal crisis). 100 Each 04/13/19 25 3:18 PM EST 025 Active SOLU-CORTEF, PF, ACT-O-VIAL 100 mg/2 mL solr Inject 2 mL intramuscularly as needed for adrenal crisis. 6 mL 1 04/13/19 25 3:18 PM EST 025 Active Needle, Disp, 25 G (BD PRECISIONGLIDE) 25 gauge x 1 ndle use to administer solu-cortef in event of adrenal crisis 100 Each 04/13/19 25 3:18 PM EST 025 Active ergocalciferol 50,000 unit capsule (VITAMIN D2, DRISDOL)Indicati ons:Vitamin D deficiency Take 1 capsule by mouth one time a week. 12 capsule 1 025 Active escitalopram oxalate (LEXAPRO) 20 mg tabletIndication s:Generalized anxiety disorder,Major depressive disorder, recurrent episode, moderate (HCC) Take 1 tablet by mouth once daily. 30 tablet 5 Active mirtazapine (REMERON) 45 mg tabletIndication s:Generalized anxiety disorder,Major depressive disorder, recurrent episode, moderate (HCC),Drug-induc ed insomnia (HCC) Take 1 tablet by mouth daily at bedtime. 30 tablet 5 025 2024 Active traZODone (DESYREL) 100 mg tabletIndication s:Generalized anxiety disorder,Major depressive disorder, recurrent episode, moderate (HCC),Drug-induc ed insomnia (HCC) Take 1 tablet by mouth daily at bedtime. 30 tablet 5 025 2024 Active hydrocortisone (CORTEF) 10 mg tabletIndication s:ACI (adrenal cortical insufficiency) ([facility]) Take 1 tablet by mouth once daily. Double dose during illness for 3 days 90 tablet 1 025 Active hydrOXYzine HCl (ATARAX) 25 mg tabletIndication s:Generalized anxiety disorder Take 2 tablets by mouth two times a day as needed for anxiety (insomnia). For Anxiety 180 tablet 1 025 Active prucalopride 2 mg tablet (MOTEGRITY) Take 1 tablet by mouth once daily. 30 tablet 2 025 2024 Active predniSONE (DELTASONE) 5 mg tablet Take 3 tablets by mouth every afternoon. 024 2024 Discontinued( Course of therapy completed) hydrOXYzine HCl (ATARAX) 25 mg tabletIndication s:Generalized anxiety disorder Take 1 tablet by mouth two times a day as needed. For Anxiety 180 tablet 1 025 2024 Discontinued( Adjust Sig - Block E-Cancel) dexAMETHasone (DECADRON) 6 mg tablet Take 6 mg by mouth daily with breakfast. 2024 Discontinued( Course of therapy completed) prucalopride 2 mg tablet (MOTEGRITY) Take 1 tablet by mouth once daily. 30 tablet 2 025 2024 Discontinued Active Problems Problem Noted Date Diagnosed Date Poor response to enteral nutrition 09/11/2024 Hypoglycemia 04/11/2024 Starvation ketoacidosis 04/11/2024 Chronic pain 04/11/2024 Chronic, continuous use of opioids 04/11/2024 History of laparoscopic cholecystectomy 04/11/19 Hx of abdominal surgery 04/11/2024 Intestinal occlusion 01/22/2024 Screening for diabetes mellitus (DM) 01/22/2024 History of small bowel obstruction 01/21/2024 Impaired intestinal absorption 11/03/2023 Ileus 10/10/2023 Current use of steroid medication 10/06/2023 Assessment & Plan (10/06/2023 4:11 PM EDT): Assessment: Daily prednisone for Hives, Follows with PCP Community acquired pneumonia of left lower lobe of lung 08/07/2023 LUQ pain 08/07/2023 Idiopathic hypotension 08/06/2023 Assessment & Plan (10/06/2023 4:01 PM EDT): Assessment: Stable with midodrine (PROAMATINE) , follows with PCP. Chronic abdominal pain 08/05/2023 Assessment & Plan (10/06/2023 4:10 PM EDT): Assessment: Managed with Ketamine nasal spray Pt. will not take on DOS Aspiration pneumonia of left lower lobe due to v omit 08/04/2023 Syncope and collapse 08/04/2023 Jejunostomy tube present 06/07/2023 Assessment & Plan (10/06/2023 4:07 PM EDT): Assessment: Noted, gives self boluses of water throughout day. PEG (percutaneous endoscopic gastrostomy) status 06/07/2023 Decreased oral intake 05/25/2023 Median arcuate ligament syndrome 02/18/2023 Celiac artery compression syndrome 12/29/2022 Feeding difficulties 12/08/2022 On total parenteral nutrition (TPN) 12/07/2022 Assessment & Plan (10/06/2023 4:05 PM EDT): Assessment: At night. Aware to Hold after MN Therapeutic drug monitoring 12/07/2022 Anxiety and depression 12/07/2022 Assessment & Plan (10/06/2023 4:08 PM EDT): Assessment: Pt. reports mood is stable with medication Dehydration 11/26/2022 Pain, abdominal 11/17/2022 Dysfunction of sphincter of Oddi 11/06/2022 Bilious vomiting with nausea 10/28/2022 Bariatric surgery status 10/26/2022 Assessment & Plan (10/06/2023 4:06 PM EDT): Assessment: Has had 100 lb weight loss efforts supported Nausea and vomiting 10/25/2022 Assessment & Plan (10/25/2022 3:22 PM EDT): See above Acquired hypothyroidism 10/25/2022 Assessment & Plan (10/06/2023 4:07 PM EDT): Assessment: Stable with medications, follows with Endocrinology . Assessment & Plan (10/25/2022 3:22 PM EDT): Assessment: Stable issue On Synthroid PLAN: Continue current management TSH in am Peptic ulcer disease 10/25/2022 Assessment & Plan (10/25/2022 3:25 PM EDT): See above History of Isabel-en-Y gastric bypass 06/24/2022 Renal stone 06/24/2022 Gastric reflux 01/29/2022 PONV (postoperative nausea and vomiting) 022 Assessment & Plan (10/06/2023 4:03 PM EDT): Assessment: severe, Hx of aspiration pneumonia from current status Reports scopolamine patch works Anesthesia Considerations NPO p MN Iron deficiency anemia 11/01/2021 Ventral hernia without obstruction or gangrene 0 03/13/2021 Assessment & Plan (03/13/2021 10:33 AM EST): Assessment: will have surgery History of sleeve gastrectomy 09/05/2020 Assessment & Plan (06/24/2021 12:26 PM EDT): Assessment: 08/2020, down 50 lbs Asthma 08/21/2020 Assessment & Plan (10/06/2023 4:03 PM EDT): Assessment: Stable with inhalers, follows with PCP. Assessment & Plan (10/25/2022 3:24 PM EDT): Assessment: Stable issue Not in exacerbation PLAN: Continue current management Assessment & Plan (06/24/2021 12:26 PM EDT): Assessment: Advair BID and Albuterol daily Assessment & Plan (03/13/2021 10:32 AM EST): Assessment: has not needed Inhalers for about a year,monitored per PCP Assessment & Plan (08/21/2020 1:13 PM EDT): Assessment: has inhaler for prn use, trigger is cold weather Abnormal finding on imaging of liver 04/07/2020 Malnutrition of mild degree 04/06/2020 Intractable upper abdominal pain 04/05/2020 EDWAR (generalized anxiety disorder) 01/03/2020 Moderate recurrent major depression 01/03/2020 Situational stress 01/03/2020 Panic disorder without agoraphobia 11/21/2019 Trauma and stressor-related disorder 11/21/2019 Duodenogastric reflux of bile 11/16/2019 Malaise and fatigue 10/06/2019 Chronic bilateral low back pain without sciatica 10/06/2019 Vertigo 10/06/2019 Nausea 09/25/2019 Heartburn 09/25/2019 Class 1 obesity without seri ous comorbidity with body mass index (BMI) of 33.0 to 33.9 in adult 09/25/2019 Assessment & Plan (03/13/2021 10:32 AM EST): Assessment: BMI 31.8 Assessment & Plan (08/21/2020 1:08 PM EDT): Assessment: BMI 38.74 Hypertension 09/25/2019 Assessment & Plan (10/06/2023 4:00 PM EDT): Assessment: Assessment & Plan (03/13/2021 10:35 AM EST): Assessment: not on meds,monitored per PCP BP 141/70 pulse 62 Assessment & Plan (08/21/2020 1:09 PM EDT): Assessment: was on medication with 133/84 today Gastric ulcer 02/15/2013 Assessment & Plan (03/13/2021 10:32 AM EST): Assessment: had in 2013,moniotred per PCP GERD (gastroesophageal reflux disease) Assessment & Plan (10/06/2023 4:04 PM EDT): Assessment: Managed with med, with OK control Assessment & Plan (10/25/2022 3:23 PM EDT): See above Assessment & Plan (03/13/2021 10:32 AM EST): Assessment: takes meds,stable Assessment & Plan (08/21/2020 1:09 PM EDT): Assessment: no current medication Hypothyroid Assessment & Plan (06/24/2021 12:27 PM EDT): Assessment: taking levothyroxine and cytomel Assessment & Plan (03/13/2021 10:33 AM EST): Assessment: take s ed,monitored per PCP Assessment & Plan (08/21/2020 1:09 PM EDT): Assessment: controlled with medication RICHAR (obstructive sleep apnea) Overview (10/06/2019): wears mask every night Assessment & Plan (10/06/2023 4:03 PM EDT): Assessment: Does not use CPAP Assessment & Plan (06/24/2021 12:25 PM EDT): Assessment: uses CPAP nightly Assessment & Plan (03/13/2021 10:33 AM EST): Assessment: uses CPAP at night Assessment & Plan (08/21/2020 1:10 PM EDT): Assessment: compliant with CPAP PCOS (polycystic ovarian syndrome) Assessment & Plan (10/25/2022 3:23 PM EDT): Assessment: Stable issue PLAN: Continue current management Assessment & Plan (03/13/2021 10:33 AM EST): Assessment: monitored per PCP Assessment & Plan (08/21/2020 1:10 PM EDT): Assessment: managed with metformin Anemia Overview (10/06/2019): Takes Pro FE daily. Assessment & Plan (10/06/2023 4:07 PM EDT): Assessment: iron supplement labs stable,acceptable for surgery Assessment & Plan (06/24/2021 12:27 PM EDT): Assessment: iron infusions ~1 month ago Assessment & Plan (03/13/2021 10:31 AM EST): Assessment: monitored per PCP Assessment & Plan (08/21/2020 1:11 PM EDT): Assessment: chronic, on iron, most recent Hgb 11.9 Resolved Problems Problem Noted Date Diagnosed Date Resolved Date Intractable pain 12/02/2023 12/03/2023 Intractable abdominal pain 12/01/2023 1 SBO (small bowel obstruction) 07/17/2023 07/20/2023 H/O gastric bypass 06/07/2023 Intractable nausea and vomiting 12/06/2022 08/08/2023 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 RUQ pain 11/05/2022 08/04/2023 Abdominal pain 10/25/2022 08/08/2023 Assessment & Plan (10/25/2022 3:23 PM EDT): Assessment: Worsening symptoms of abdominal pain, N/V, inability to tolerate PO Unclear etiology, rule out PUD/gastritis CT showed no acute pathology Lipase normal PLAN: Symptomatic relief for pain and nausea as ordered Acid suppression NPO after midnight IVF Consult GI, consider EGD Nutrition consult Rash and nonspecific skin eruption 07/22/2022 08/04/2023 History of sleep apnea 06/24/202208/03 History of PCOS 06/24/2022 08/04/2023 Constipation 06/21/2022 12/03/2023 Bipolar disorder 06/21/2022 08/07/2023 Intractable nausea and vomiting 06/20/2022 06/23/2022 Acute abdominal pain 12/21/2020 023 Obesity 09/03/2020 11/29/2020 Abdominal pain 02/01/2020 04/08/2020 Right upper quadrant abdominal pain 01/31/2020 08/04/2023 Moderate episode of recurren t major depressive disorder 11/21/2019 01/03/2020 Back pain 10/15/2019 08/07/2023 Obesity, Class II, BMI 35-39.9 10/13/2019 11/29/2020 Assessment & Plan (08/21/2020 1:12 PM EDT): Assessment: BMI 38.74 Regurgitation of food 09/25/20192023 Preoperative examination 09/25/2019 Encounters * This document contains information received from the source organization and may not represent a complete record from that organization. Date Type Department Care Team Description 09/15/2024 Telephone Gastroenterology [address] [id number] Senior Data Modeler, Hpn 09/14/2024 Orders Only Endocrinology [address] [place] [address] Jie Nichole MD ACI (adrenal cortical insufficiency) (HCC) (Primary Dx) 09/14/2024 Results Follow-Up Endocrinology [address] [place], [place] [id number] Jie Nichole MD 09/14/2024 Refill Gastroenterology [address] [address] Kasie Avalos MD Refill Request 09/11/2024 12:30 PM EDT Infusion Center Hematology/Oncolog y [address] [facility] [place] [address] On total parenteral nutrition (TPN); At risk for fluid and electrolyte imbalance; Anemia, unspecified type 09/11/2024 Patient Update Gastroenterology [address] [id number] Senior Data Modeler, Hpn 09/04/2024 Get Medical Advice Gastroenterology [address] [phone] Marissa Barkley MD TPN Reduction 09/01/2024 Patient Msg HOSP MAIN H060 [address] [place] [address] Provider, Ccf Sign up to manage your digestive symptoms in between visits, covered by insurance 08/28/2024 10:45 AM EDT Infusion Center Hematology/Oncolog y [address] [place] [address] [place] [address] On total parenteral nutrition (TPN); At risk for fluid and electrolyte imbalance; Anemia, unspecified type; ACI (adrenal cortical insufficiency) (HCC) 08/22/2024 2:45 PM EDT Infusion Center Hematology/Oncolog y [address] [place] [address] [place] [address] On total parenteral nutrition (TPN); At risk for fluid and electrolyte imbalance; Anemia, unspecified type 08/22/2024 Telephone Gastroenterology [address] [place] [address] Senior Data Modeler, Hpn Results 08/21/2024 Travel 08/21/2024 Get Medical Advice Gastroenterology [address] [phone] Marissa Barkley MD Infection 08/18/2024 Patient [facility] [address] [place] [address] [place] [address] Provider, Ccf Appointment Cancellation Request 08/16/2024 Patient [facility] Endoscopy - ENDO [address] [place] [address] Provider, Ccf EGD instructions 08/16/2024 GI Preprocedure Call [facility] Endoscopy - ENDO [address] [place] [address] Deacon Valladares MD 08/16/2024 Get Medical Advice Gastroenterology [address] [address] Marissa Barkley MD TPN and Port 08/15/2024 11:24 AM EDT - 08/15/2024 11:25 AM EDT Emergency [facility] Emergency Department [address] [place] [address] Possible infection tpa line Discharge Disposition: AMA/Discontinuation of Care-Use additional discharge code 08/15/2024 Get Medical Advice Gastroenterology [address] [phone] Marissa Barkley MD TPN and Port 08/14/2024 Get Medical Advice Gastroenterology [address] [phone] Marissa Barkley MD Fluids and TPN issues with Port 08/11/2024 Results Follow-Up Endocrinology [address] [place] [address] Jei Nichole MD 08/09/2024 10:00 AM EDT Infusion Center Hematology/Oncolog y [address] [facility] [place] [address] On total parenteral nutrition (TPN); At risk for fluid and electrolyte imbalance; Anemia, unspecified type; Current chronic use of systemic steroids; Vitamin D deficiency 08/08/2024 [facility] [address] [place] [address] Deacon Valladares MD 08/06/2024 Get Medical Advice General Surgery [address] [place] [address] Deacon Valladares MD Possible Stricture 08/02/2024 Orders Only Gastroenterology [address] [phone] Marissa Barkley MD Vitamin D deficiency (Primary Dx) 08/02/2024 Refill Gastroenterology [address] [address] Kasie Avalos MD Refill Request 07/31/2024 Results Follow-Up Endocrinology [address] [place] [address] Jie Nichole MD 07/31/2024 Get Medical Advice Endocrinology [address] [place] [address] Jie Nichole MD [facility] 07/31/2024 Refill Gastroenterology [address] [place] [address] Kasie Avalos MD Opened In Error 07/28/2024 11:15 AM EDT Infusion Center Hematology/Oncolog y [address] [facility] [place] [address] On total parenteral nutrition (TPN); At risk for fluid and electrolyte imbalance; Anemia, unspecified type 07/21/2024 8:30 AM EDT Infusion Center Hematology/Oncolog y [address] [place] [address] [place] [address] Hypothyroidism, unspecified type; Hypoglycemia; Current chronic use of systemic steroids 07/21/2024 Get Medical Advice Gastroenterology [address] [address] Marissa Barkley MD J tube infection 07/21/2024 Orders Only Endocrinology [address] [place] [address] Jie Nichole MD Hypothyroidism, unspecified type (Primary Dx); Hypoglycemia; Current chronic use of systemic steroids 07/21/2024 Orders Only Endocrinology [address] [place] [address] Jie Nichole MD 07/21/2024 Telephone Endocrinology [address] [place] [address] Jie Nichole MD 07/21/2024 Travel 07/20/2024 Get Medical Advice Endocrinology [address] [place] [address] Jie Nichole MD Cortisol 07/14/2024 11:15 AM EDT Infusion Center Hematology/Oncolog y [address] [place] [address] [place] [address] On total parenteral nutrition (TPN); At risk for fluid and electrolyte imbalance; Anemia, unspecified type 07/06/2024 9:30 AM EDT Infusion Center Hematology/Oncolog y [address] [place] [address] [place] [address] On total parenteral nutrition (TPN); At risk for fluid and electrolyte imbalance; Anemia, unspecified type 07/03/2024 Get Medical Advice Gastroenterology [address] [address] Marissa Barkley MD TPN reduction 06/30/2024 11:15 AM EDT Infusion Center Hematology/Oncolog y [address] [place] [address] [place] [address] On total parenteral nutrition (TPN) (Primary Dx) 06/27/2024 9:45 AM EDT Infusion Center Hematology/Oncolog y [address] [place] [address] [place] [address] On total parenteral nutrition (TPN); At risk for fluid and electrolyte imbalance; Anemia, unspecified type 06/21/2024 10:30 AM [facility] Gastroenterology [address] [address] Marissa Barkley MD Senior Data Modeler, n On total parenteral nutrition (TPN) (Primary Dx); Therapeutic drug monitoring; Central venous catheter in place; On tube feeding diet; Feeding intolerance; Adrenal insufficiency (HCC); Hypoglycemia; Small bowel obstruction due to adhesions (HCC); Constipation, unspecified constipation type 06/21/2024 Abstract Gastroenterology [address] [address] Senior Data Modeler, Hpn 06/19/2024 Travel 06/16/2024 11:15 AM ED Infusion Center Hematology/Oncolog y [address] [place] [address] [place] [address] On total parenteral nutrition (TPN); At risk for fluid and electrolyte imbalance; Anemia, unspecified type 06/16/2024 Travel from Last 3 Months Immunizations Immunization Administration Dates Next Due COVID-19 vaccine (LYNNE) 06/23/2020 influenza (IIV3) vaccine, tr ivalent (AFLURIA, FLULAVAL, FLUVIRIN, FLUZONE) 01/01/2021,11/28/2018 influenza (IIV4) vaccine, ag e 6 mo - 64 yr, quadrivalent, PF (AFLURIA, FLUARIX, FLULAVAL, FLUZONE) 11/12/2022,12/25/2020 tetanus diphtheria pertussis (Tdap) vaccine, age 7+ yr (ADACEL, BOOSTRIX) 09/21/2016 Family History Medical History Relation Comments Hypertension Brother 1 Obesity Brother 1 Hypertension Brother 2 Obesity Brother 2 Hypertension Father Diabetes Mother Hypertension Mother Obesity Mother Relation Status Comments Brother 1 Alive Brother 2 Alive Father Alive Mother Alive Social History Tobacco Use Types Packs/Day Years Used Date Smoking Tobacco: Never Smokeless Tobacco: Never Tobacco Cessation:Counseling Given: Not Answered Alcohol Use Standard Drinks/Week Comments Not Currently 0 (1 standard drink = 0.6 oz pur e alcohol) [facility] Utilities Answer Date Recorded In [...] How often do you attend chur or adventism services? 1 to 4 times per year 10/28/2022 Do you belong to any clubs o r organizations such as yazdanism groups, unions, fraternal [...] Answer Date Recorded PHQ-2 score 2 08/21/2024 [facility] of Occupat ional Health - Occupational Stress [...] slept in a custodial (including now)? No 08/08/2023 Housing Stability Vital Sign Answer Eugenio e Recorded In the last 12 months, was t here a time when you were not able to pay the mortgage or rent on time? No 04/12/2024 Number of Times Moved in the Last Year Not on fi le 04/12/2024 At any time in the past 12 m [facility], were you homeless or living in a custodial (including now)? No 04/12/2024 Area Deprivation Index Answer Date Nayan rded National Score (1-100), lower number is lower ri sk 64 06/17/2022 State Score (1-10), lower number is lower risk 4 06/17/2022 Data from: https://www.neighborhoodatlas.medicine.[employer].edu/. Last address used for calculation [id number] [place] [address] [address] 06/17/2022 Education Answer Date Recorded What is the highest level of school you have completed or the highest degree you have received? 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 Not on file Not on file Last Filed Vital Signs Vital Sign Reading Time Taken Comments Blood Pressure 112/76 05/09/2024 8:48 AM EDT Pulse 81 04/13/2024 11:24 AM EST Temperature 36.7 C (98.1 F) 04/13/2024 11:24 AM EST Respiratory Rate 18 04/13/2024 11:24 AM EST Oxygen Saturation 98% 04/13/2024 11:24 AM EST Inhaled Oxygen Concentration - - Weight 82.1 kg (181 lb) 06/21/2024 10:46 AM EDT Height 167.6 cm (5' 6 ) 06/21/2024 10:46 AM EDT Body Mass Index 29.21 06/21/2024 10:46 AM EDT Plan of Treatment Upcoming Encounters Date Type Department Care Team (Latest Contact Info) Description 09/18/2024 12:30 PM EDT Infusion Center Hematology/Oncology [address] [place] [address] [place] [address] [place] dressing and cap change;Labs as needed per patient 09/22/2024 12:30 PM EDT Office Visit Gastroenterology [address] [id number] Senior Data Modeler, Hpn [address] [place] [address] HPN / PAGE [id number] 09/22/2024 1:00 PM EDT Office Visit Gastroenterology [address] [address] Marissa Barkley MD [facility] [address] [place] [id number] HPN / PAGE [id number] 09/25/2024 9:00 AM EDT Infusion Center Hematology/Oncology [address] [place] [address] [place] [address] Hodges dressing and cap change;Labs as needed per patient 09/29/2024 10:15 AM EDT Appointment [facility] Endoscopy - ENDO [address] [place] [address] [place] [address] [place] [address] EGD 10/02/2024 9:00 AM EDT Infusion Center Hematology/Oncology [address] [place] [address] [place] [address] Hodges dressing and cap change;Labs as needed per patient 10/09/2024 9:00 AM EDT Infusion Center Hematology/Oncology [address] [place] [address] [place] [address] Hodges dressing and cap change;Labs as needed per patient Health Maintenance Due Date Last Done Comments Annual PCP Team Chronic Dise ase Visit 2007 HIV Screening 2007 Hepatitis C Screening 2007 Hepatitis B Vaccine (1 of 3 - 19+ 3-dose series) 2008 Cervical Cancer Screening 2010 Influenza Vaccine (#1) 2024 3, 11/16/2021, 01/01/2021, Additional history exists DTaP,Tdap,Td Vaccine (2 - Td or Tdap) 09/21/2026 09/21/2016 Goals Goal Patient Goal Type Associated Problems Recent Progress Patient-Stated? Author Blood Pressure < 140/90 Blood Pressure 112/76( 025 8:48 AM EDT) Hannah Steel MD Medical Devices Implanted Type Area Safety Belt Installer Device Identifier Shelf Expiration Date Model / Serial / Lot Fibertak Hip Self Bunching Kl [place] 1.8mm [id number] Implanted:Qty: 1 on 07/10/2021 at [facility] [place] Right: Bone - Hip [employer] 04/14/2026 AR-3636H / / [id number] Fibertak Hip Self Bunching Kl [place] 1.8mm [id number] Implanted:Qty: 1 on 07/10/2021 at [facility] [place] Right: Bone - Hip [employer] 04/14/2026 AR-3636H / / [id number] Fibertak Hip Self Bunching Kl [place] 1.8mm [id number]-[id number] Implanted:Qty: 1 on 07/10/2021 at [facility] [place] Right: Bone - Hip [employer] 04/14/2026 AR-3636H / / [id number] Fibertak Hip Self Bunching Kl [place] 1.8mm [id number]-[id number] Implanted:Qty: 1 on 07/10/2021 at [facility] [place] Right: Bone - Hip [employer] 04/14/2026 AR-3636H / / [id number] Catheter Hodges Surecuff 9.6fr 3.2mm 1.6mm 2 Branch 90cm Central Venous 1 - [id number] Implanted:Qty: 1 on 10/15/2023 at [facility] Catheter ANTONIO CLARISSE 07/12/2026 [id number] / / [id number] Implant Implant Arm Description:Nexplanon control L arm Procedures Procedure Name Priority Date/Time Associated Diagnosis Comments PHOSPHORUS INORGANIC Routine 09/11/2024 12:44 PM EDT On total parenteral nutrition (TPN) At risk for fluid and electrolyte imbalance MAGNESIUM BLD Routine 09/11/2024 12:44 PM EDT On total parenteral nutrition (TPN) At risk for fluid and electrolyte imbalance COMPLETE BLOOD COUNT Routine 09/11/2024 12:44 PM EDT On total parenteral nutrition (TPN) Anemia, unspecified type COMPREHENSIVE METABOLIC PANEL Routine 09/11/2024 12:44 PM EDT On total parenteral nutrition (TPN) At risk for fluid and electrolyte imbalance TPN FORMULA FLOW PRESCRIPTION Routine 09/04/2024 11:37 AM EDT CORTISOL BLD Routine 08/28/2024 11:00 AM EDT ACI (adrenal cortical insufficiency) (HCC) ACTH BLD Routine 08/28/2024 11:00 AM EDT ACI (adrenal cortical insufficiency) (HCC) PHOSPHORUS INORGANIC Routine 08/28/2024 11:00 AM EDT On total parenteral nutrition (TPN) At risk for fluid and electrolyte imbalance MAGNESIUM BLD Routine 08/28/2024 11:00 AM EDT On total parenteral nutrition (TPN) At risk for fluid and electrolyte imbalance COMPLETE BLOOD COUNT Routine 08/28/2024 11:00 AM EDT On total parenteral nutrition (TPN) Anemia, unspecified type COMPREHENSIVE METABOLIC PANEL Routine 08/28/2024 11:00 AM EDT On total parenteral nutrition (TPN) At risk for fluid and electrolyte imbalance TPN FORMULA FLOW PRESCRIPTION Routine 08/23/2024 2:43 PM EDT PHOSPHORUS INORGANIC Routine 08/22/2024 2:56 PM EDT On total parenteral nutrition (TPN) At risk for fluid and electrolyte imbalance MAGNESIUM BLD Routine 08/22/2024 2:56 PM EDT On total parenteral nutrition (TPN) At risk for fluid and electrolyte imbalance COMPLETE BLOOD COUNT Routine 08/22/2024 2:56 PM EDT On total parenteral nutrition (TPN) Anemia, unspecified type COMPREHENSIVE METABOLIC PANEL Routine 08/22/2024 2:56 PM EDT On total parenteral nutrition (TPN) At risk for fluid and electrolyte imbalance TPN FORMULA FLOW PRESCRIPTION Routine 08/21/2024 1:13 PM EDT PT ED DIGESTIVE DISEASE 08/11/2024 VITAMIN D 25 HYDROXY Routine 08/09/2024 10:16 AM EDT Vitamin D deficiency CORTISOL BLD Routine 08/09/2024 10:16 AM EDT Current chronic use of systemic steroids ACTH BLD Routine 08/09/2024 10:16 AM EDT Current chronic use of systemic steroids PHOSPHORUS INORGANIC Routine 08/09/2024 10:16 AM EDT On total parenteral nutrition (TPN) At risk for fluid and electrolyte imbalance MAGNESIUM BLD Routine 08/09/2024 10:16 AM EDT On total parenteral nutrition (TPN) At risk for fluid and electrolyte imbalance COMPLETE BLOOD COUNT Routine 08/09/2024 10:16 AM EDT On total parenteral nutrition (TPN) Anemia, unspecified type COMPREHENSIVE METABOLIC PANEL Routine 08/09/2024 10:16 AM EDT On total parenteral nutrition (TPN) At risk for fluid and electrolyte imbalance TPN FORMULA FLOW PRESCRIPTION Routine 08/02/2024 1:46 PM EDT PHOSPHORUS INORGANIC Routine 07/28/2024 11:38 AM EDT On total parenteral nutrition (TPN) At risk for fluid and electrolyte imbalance MAGNESIUM BLD Routine 07/28/2024 11:38 AM EDT On total parenteral nutrition (TPN) At risk for fluid and electrolyte imbalance COMPLETE BLOOD COUNT Routine 07/28/2024 11:38 AM EDT On total parenteral nutrition (TPN) Anemia, unspecified type COMPREHENSIVE METABOLIC PANEL Routine 07/28/2024 11:38 AM EDT On total parenteral nutrition (TPN) At risk for fluid and electrolyte imbalance CORTISOL BLD Routine 07/21/2024 8:41 AM EDT Hypothyroidism, unspecified type Hypoglycemia Current chronic use of systemic steroids ACTH BLD Routine 07/21/2024 8:41 AM EDT Hypothyroidism, unspecified type Hypoglycemia Current chronic use of systemic steroids PT ED PATIENT INFORMATION 07/16/2024 TPN FORMULA FLOW PRESCRIPTION Routine 07/14/2024 2:28 PM EDT PHOSPHORUS INORGANIC Routine 07/14/2024 11:29 AM EDT On total parenteral nutrition (TPN) At risk for fluid and electrolyte imbalance MAGNESIUM BLD Routine 07/14/2024 11:29 AM EDT On total parenteral nutrition (TPN) At risk for fluid and electrolyte imbalance COMPLETE BLOOD COUNT Routine 07/14/2024 11:29 AM EDT On total parenteral nutrition (TPN) Anemia, unspecified type COMPREHENSIVE METABOLIC PANEL Routine 07/14/2024 11:29 AM EDT On total parenteral nutrition (TPN) At risk for fluid and electrolyte imbalance PHOSPHORUS INORGANIC Routine 07/06/2024 9:42 AM EDT On total parenteral nutrition (TPN) At risk for fluid and electrolyte imbalance MAGNESIUM BLD Routine 07/06/2024 9:42 AM EDT On total parenteral nutrition (TPN) At risk for fluid and electrolyte imbalance COMPLETE BLOOD COUNT Routine 07/06/2024 9:42 AM EDT On total parenteral nutrition (TPN) Anemia, unspecified type COMPREHENSIVE METABOLIC PANEL Routine 07/06/2024 9:42 AM EDT On total parenteral nutrition (TPN) At risk for fluid and electrolyte imbalance TPN FORMULA FLOW PRESCRIPTION Routine 07/04/2024 2:25 PM EDT PHOSPHORUS INORGANIC Routine 06/27/2024 9:39 AM EDT On total parenteral nutrition (TPN) At risk for fluid and electrolyte imbalance MAGNESIUM BLD Routine 06/27/2024 9:39 AM EDT On total parenteral nutrition (TPN) At risk for fluid and electrolyte imbalance COMPLETE BLOOD COUNT Routine 06/27/2024 9:39 AM EDT On total parenteral nutrition (TPN) Anemia, unspecified type COMPREHENSIVE METABOLIC PANEL Routine 06/27/2024 9:39 AM EDT On total parenteral nutrition (TPN) At risk for fluid and electrolyte imbalance TPN FORMULA FLOW PRESCRIPTION Routine 06/21/2024 11:49 AM EDT PHOSPHORUS INORGANIC Routine 06/16/2024 11:41 AM EDT On total parenteral nutrition (TPN) At risk for fluid and electrolyte imbalance MAGNESIUM BLD Routine 06/16/2024 11:41 AM EDT On total parenteral nutrition (TPN) At risk for fluid and electrolyte imbalance COMPLETE BLOOD COUNT Routine 06/16/2024 11:41 AM EDT On total parenteral nutrition (TPN) Anemia, unspecified type COMPREHENSIVE METABOLIC PANEL Routine 06/16/2024 11:41 AM EDT On total parenteral nutrition (TPN) At risk for fluid and electrolyte imbalance from Last 3 Months Results * (ABNORMAL) MAGNESIUM (09/11/2024 12:44 PM EDT) Only the most recent of9 resultswithin the time period is included. Magnesium 1.6(L) 1.7 - 2.3 mg/dL 09/11/2024 1:15 PM EDT [facility] Blood BLOOD SPECIMEN / Unknown Central Line / Unknown 09/11/2024 12:44 PM EDT 09/11/2024 12:45 PM EDT us Marissa Barkley MD LABORATORY Final Result [facility] [address] [place] [address] * PHOSPHORUS INORGANIC (09/11/2024 12:44 PM EDT) Only the most recent of9 resultswithin the time period is included. Phosphorus 4.2 2.7 - 4.8 mg/dL 09/11/2024 1:15 PM EDT [facility] Blood BLOOD SPECIMEN / Unknown Central Line / Unknown 09/11/2024 12:44 PM EDT 09/11/2024 12:45 PM EDT us Marissa Barkley MD LABORATORY Final Result [facility] [address] [place] [address] * (ABNORMAL) COMPREHENSIVE METABOLIC PANEL (09/11/2024 12:44 PM EDT) Only the most recent of9 resultswithin the time period is included. Pathologist [facility] Protein, Total 5.9(L) 6.3 - 8.0 g/dL 09/11/2024 1:16 PM EDT [facility] Albumin 3.5(L) 3.9 - 4.9 g/dL 09/11/2024 1:16 PM EDT [facility] Calcium, Total 8.3(L) 8.5 - 10.2 mg/dL 09/11/2024 1:16 PM EDT [facility] Bilirubin, Total 0.2 0.2 - 1.3 mg/dL 09/11/2024 1:16 PM EDT [facility] Alkaline Phosphatase 106 34 - 123 U/L 09/11/2024 1:16 PM EDT [facility] AST 17 13 - 35 U/L 09/11/2024 1:16 PM EDT [facility] ALT 9 7 - 38 U/L 09/11/2024 1:16 PM EDT [facility] Glucose 150(H) 74 - 99 mg/dL 09/11/2024 1:16 PM EDT [facility] Comment: The [place] Diabetes Association (ADA) provides guidance for cutoff [...] Standards of Medical Care in Diabetes 2016, [place] [employer]. Diabetes Care. 2016.39(Suppl 1). BUN 7 7 - 21 mg/dL 09/11/2024 1:16 PM EDT [facility] Creatinine 0.63 0.58 - 0.96 mg/dL 09/11/2024 1:16 PM EDT [facility] Sodium 135(L) 136 - 144 mmol/L 09/11/2024 1:16 PM EDT [facility] Potassium 3.2(L) 3.7 - 5.1 mmol/L 09/11/2024 1:16 PM EDT [facility] Chloride 104 98 - 107 mmol/L 09/11/2024 1:16 PM EDT [facility] CO2 21(L) 22 - 30 mmol/L 09/11/2024 1:16 PM EDT [facility] Anion Gap 10 8 - 15 mmol/L 09/11/2024 1:16 PM EDT [facility] Estimated Glomerular Filtration Rate 119 >=60 mL/min/1. 73m 09/11/2024 1:16 PM EDT [facility] Comment:Estimated Glomerular Filtration Rate (eGFR) is [...] PM EDT 09/11/2024 12:45 PM EDT us Marissa Barkley MD LABORATORY Final Result [facility] [address] [place] [address] * COMPLETE BLOOD COUNT (09/11/2024 12:44 PM EDT) Only the most recent of9 resultswithin the time period is included. WBC 8.76 3.70 - 11.00 k/uL 09/11/2024 12:47 PM EDT [facility] RBC 4.16 3.90 - 5.20 m/uL 09/11/2024 12:47 PM EDT [facility] Hemoglobin 12.5 11.5 - 15.5 g/dL 09/11/2024 12:47 PM EDT [facility] Hematocrit 37.0 36.0 - 46.0 % 09/11/2024 12:47 PM EDT [facility] MCV 88.9 80.0 - 100.0 fL 09/11/2024 12:47 PM EDT [facility] MCH 30.0 26.0 - 34.0 pg 09/11/2024 12:47 PM EDT [facility] MCHC 33.8 30.5 - 36.0 g/dL 09/11/2024 12:47 PM EDT [facility] RDW-CV 14.1 11.5 - 15.0 % 09/11/2024 12:47 PM EDT [facility] Platelet Count 361 150 - 400 k/uL 09/11/2024 12:47 PM EDT [facility] MPV 10.2 9.0 - 12.7 fL 09/11/2024 12:47 PM EDT [facility] Absolute nRBC <0.01 <0.01 k/uL 09/11/2024 12:47 PM EDT [facility] Blood BLOOD SPECIMEN / Unknown Central Line / Unknown 09/11/2024 12:44 PM EDT 09/11/2024 12:45 PM EDT us Marissa Barkley MD LABORATORY Final Result [facility] [address] [place] [address] * TPN FORMULA FLOW PRESCRIPTION (09/04/2024 11:37 AM EDT) Only the most recent of7 resultswithin the time period is included. 09/04/2024 11:3 7 AM EDT Narrative OTHER LAB - 09/04/2024 11:37 AM EDT PN/EN Formula Flow [facility] #: [id number] Patient Name: JUAN GARCIA Patient Date of : 1990 Physician: MARISSA BARKLEY MD Clinician: Lisette Perez Date of Prescription: 09/04/2024 Amino Acids Solution: 15% amino acids 15% Amino Acids (g): 90 Amino Acid %: 3.9 Amino Acids (KCal/Day): 154 (DOWN) Amino Acids (g/L): 39.1 Dextrose (g): 200 Dextrose (KCal/Day): 291 (DOWN) Dextrose (g/L): 87 Fat Emulsion Solution: Intralipid 2 Fat Percentage (%): 20 Fat Emul. Concentrate (ml): 250 Fat Emulsion (KCal/Day): 214 Fat Emulsion (g/L): 22 2 in 1 days/wk: 0 (DOWN) 3 in 1 days/wk: 3 Total KCal w/Fat/Day: 659 (DOWN) KCal/k (DOWN) Grams Protein/k.1 Water for Injection (ml): 1053 (DOWN) HPN Volume (ml): 2300 Calcium Gluconate (mEq): 10 Magnesium Sulfate (mEq): 24 Potassium Phosphate (mEq): 0 Sodium Phosphate (mEq): 65 Glyco Phosphate (mEq): 0 Potassium Chloride (mEq): 0 Potassium Acetate (mEq): 85 Sodium Chloride (mEq): 0 Sodium Acetate (mEq): 50 Multiple Vitamin Solution: MVI Adult Multiple Vitamins (ml): 10 Vitamin K (Days): 0 Vitamin K (mg): 0 Mult Trace Elemts Solution: Tralement Mult. Trace Elemts (ml): 1 Chromium (mcg): 0 Copper (mg): 0.2 Manganese (mcg): 0 Selenium (mcg): 0 Zinc (mg): 0 Heparin (units): 0 Insulin Regular Human (units): 0 H2 Antagonist: H2 (mg): 0 Octreotide (mcg): 0 PN Infus Days (per wk): 3: Mon, Wed, Wed (DOWN) PN Infus Hrs (per day): 16 Taper Up (hrs): 0 Taper Down (hrs): 3 PN Refill: 12 PN Start Date: 09/04/2024 (*) PN End Date: 12/03/2024 (*) IVF Solution: 0.45NS IVF Volume (ml): 2000 IVF Infus Days/wk: 2 Other Desc. 1: 0.45% Sodium Chloride Other Qty./Day 1: 1000 Other Unit 1: mL Other Days/wk 1: prn for dehydration Ethanol Lock: Yes Homecare Pharmacy Date: 10/14/2023 Name: [facility] Comments: TPN Physician Orders: CMP: due date: 09/04/24 None] PO4: due date: 09/04/24 None] Mg: due date: 09/04/24 None] CBC: due date: 09/04/24 None] Manganese (Whole Blood): due date: 09/18/24 None] CRP: due date: 09/18/24 None] Zinc: due date: 09/18/24 None] Copper: due date: 09/18/24 None] Selenium: due date: 09/18/24 None] Vitamin D 25: due date: 11/13/24 None] Physician Comments: Patient D/C'd from [facility] on 09/02. Resume ethanol lock and HPN; reduce to 3 days/week.Pharmacy: please send lab requisition to patient to alert her when labs are due. HNS - add all lab orders in [employer]. (UP), (DOWN), and (*) indicate change from last formula flow Created By: Lisette Perez Creation Date: 09/04/2024 11:35AM Reported Date: 09/04/2024 11:37AM Ccf Provider ALLOGEN Final Result OTHER LAB * CORTISOL, SERUM (08/28/2024 11:00 AM EDT) Only the most recent of3 resultswithin the time period is included. Cortisol 7.0 4.8 - 19.5 ug/dL 08/28/2024 6:29 PM EDT [facility] Comment: Provided reference range is from 6-10 AM sample collection time. Cortisol Reference Range: 6-10 AM = 4.8-19.5 ug/dL, 4-8 PM = 2.5-11.9 ug/dL Blood BLOOD SPECIMEN / Unknown Central Line / Unknown 08/28/2024 11:00 AM EDT 08/28/2024 11:01 AM EDT Jie Kim MD LABORATORY Final Result Performing Organization Address [facility] Co de Phone Number [facility] [place] [address], * (ABNORMAL) ACTH BLD (08/28/2024 11:00 AM EDT) Only the most recent of3 resultswithin the time period is included. ACTH 5.6(L) 7.2 - 63.3 pg/mL 08/28/2024 4:50 PM EDT [facility] Comment:ACTH Reference Range : 7-10 am: 7.2 - 63.3 pg/mL Blood BLOOD SPECIMEN / Unknown Central Line / Unknown 08/28/2024 11:00 AM EDT 08/28/2024 11:01 AM EDT us Jie Kim MD LABORATORY Final Result [facility] [address] [place] [address], [place] * PT ED DIGESTIVE DISEASE (08/11/2024) 08/11/2024 Narrative CLARIBEL - 09/11/2024 Provider SHEY torres patient JUAN GARCIA has not started their Claribel program, time has . Claribel program: UPPER GI ENDOSCOPY (EGD) us Deacon Valladares MD CL[facility]IBEL Final Result Performing Organization Address [facility] Co de Phone Number [facility] * (ABNORMAL) VITAMIN D 25 HYDROXY (08/09/2024 10:16 AM EDT) [facility] Vitamin D 25 Hydroxy 25.8(L) 31.0 - 80.0 ng/mL 08/09/2024 6:52 PM EDT [facility] Comment: Classification of 25 [place] Vitamin D status: Deficiency/Insufficiency: < or = 30 ng/ml. Sufficiency/Optimal Levels: 31-80 ng/mL Toxicity: > 100 ng/mL. Test performed by chemiluminescent immunoassay. Blood BLOOD SPECIMEN / Unknown Central Line / Unknown 08/09/2024 10:16 AM EDT 08/09/2024 10:18 AM EDT Narrative [facility] - 08/09/2024 6:52 PM EDT The reference range interval was based on an analysis of samples from healthy adults and may not pertain to children from 0-18 years old. Marissa Barkley MD LABORATORY Final Result Performing Organization Address [facility]/ZIP Co de Phone Number [facility] [address] [place] [address], [place] * PT ED PATIENT INFORMATION (07/16/2024) 07/16/2024 Narrative CLARIBEL - 08/31/2024 Provider SANTA torres patient JUAN GARCIA has not started their Claribel program, time has . 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 anation Advance Directive(s) 03/13/2021 9:49 AM * Full Code (Latest Code Status on File) Date Activated Date Inactivated Comments 04/11/2024 11:09 AM 04/13/2024 5:42 PM Question Answer Comments Full Code Order Discussed With: Patient * Full Code Date Activated Date Inactivated Comments 12/02/2023 1:45 AM 12/03/2023 5:36 PM Question Answer Comments Full Code Order Discussed With: Patient * Full Code Date Activated Date Inactivated Comments 10/10/2023 5:58 PM 10/12/2023 3:51 PM Question Answer Comments Full Code Order Discussed With: Patient * Full Code Date Activated Date Inactivated Comments 08/07/2023 3:20 PM 08/08/2023 5:15 PM Question Answer Comments Full Code Order Discussed With: Patient * Full Code Date Activated Date Inactivated Comments 08/04/2023 3:12 PM 08/06/2023 6:24 PM Question Answer Comments Full Code Order Discussed With: Patient Care Teams Chief Operator Reformer Relationship Specialty Start Date End Date Thomas Alas MD [address] [place] [address] PCP - General Family Medicine 07/30/23 Antelmo Davey MD [address] [place] [address] 09/25/19 [place] [address] [place] [address] Consulting General Surgery 09/25/19 Shanna June CNP [address] [place] [address] Referring Family Medicine 10/19/19 Tj Najera PA [address] [address] Referring Family Medicine 05/13/22 Marissa Barkley MD [address] [place] [address] Home Parenteral Nutrition Provider Gastroenterology 10/14/23
--- NOTE | 2024-09-15 16:44 | ECG_ITS ---
[facility] Test Date: 2024-09-15 Pat Name: JUAN KONG Department: Room: - Gender: Female Elementary Esl Teacher: : 1990 Requested By: BRITT CALIX Order Number: [id number] Reading MD: JAMES HODGES M.D. Measurements Intervals [place] Rate: 97 P: 90 RI: 136 QRS: 92 QRSD: 82 T: 18 QT: 356 QTc: 411 Interpretive Statements 1100 Sinus rhythm 4068 Nonspecific Twave abnormality 7102 Moderate right axis deviation Abnormal ECG Compared to ECG 08/29/2024 05:28:41 Right-axis deviation now present Electronically Signed On 09-15-2024 18:32:41 EDT by JAMES HODGES M.D.
--- NOTE | 2024-09-15 16:44 | XR_ITS ---
[address] [id number] Patient Name: JUAN KONG MRN: [id number] date: 1990 Sex: F Assigned Patient Location: ER Current Patient Location: ER Accession/Order Number: [id number] Exam Date: 09/15/2024 17:03 Report Date: 09/15/2024 17:04 At the request of: LESLIE TERRAZAS MD Procedure: XR chest 1V PA CHEST: CLINICAL HISTORY: Chills COMPARISON: 08/28/2024 The heart is normal in size. The lungs are clear. The pulmonary vasculature is normal. Mediastinum and hilar regions are unremarkable. No pleural effusions are seen. Visualized bones are intact. Catheter identified tip projects distal SVC. XR/XR chest 1V IMPRESSION: Negative acute pleural-parenchymal disease. Impression dictated by: Tio Lundberg M.D. 09/15/2024 5:04 PM Dictation Location: [address] [place] [address] Electronically authenticated by: [id number] Y Date: 09/15/2024 17:04
--- OUTSIDE RECORDS SUMMARY | 2024-09-15 16:44 | XMS_ITS | Encounter Summary ---
Author Organization [facility] Address [address] [place] [address] Care Team Providers Care Sports Equipment Repairer Name Role Phone Antelmo Davey MD Unavailable Deacon Valladares MD Unavailable [phone] Shanna June [facility] Unavailable [phone] Tj Najera Unavailable [phone] Anna Mendez APRN.[facility] Primary Care Provider Thomas Alas MD Primary Care Provider [phone] Georgina Barkley MD Unavailable [phone] Source Comments In the event this information is protected by the Federal Confidentiality of Alcohol and Drug AbusePatient Records regulations: The Federal rules restrict any use of the information to criminally investigate or prosecute any alcohol or drug abuse patient.[facility] Encounter Details Date Type Department Care Team (Late st Contact Info) Description 07/14/2023 Patient Msg [facility] [address] [place] [address] Provider, Ccf Important Instructions reminder regarding your upcoming EGD Huerta/Huerta Insert Please follow Directions carefully in order to avoid your procedure being cancelled or rescheduled. Thank you. Social History Tobacco Use Types Packs/Day Years Used Date Smoking Tobacco: Never Smokeless Tobacco: Never Alcohol Use Standard Drinks/Week Comments Not Currently 0 (1 standard drink = 0.6 oz pur e alcohol) [facility] Utilities Answer Date Recorded In the past 12 months has th e electric, gas, oil, or water company threatened to shut off services in your home? No 06/07/2023 Social Connection and Isolat ion Panel [NHANES] [...] Answer Date Recorded PHQ-2 score 2 07/09/2023 [facility] [place] of Occupat ional Health - Occupational Stress [...] the money to buy more. Never true 06/07/19 24 Within the past 12 months, t he food you bought just didn't last and you didn't have money to get more. Never true 06/07/2023 PRAPARE - Transportation Answer Date Re corded In the past 12 months, has l ack of transportation kept you from medical appointments or from getting medications? No 05/17 In the past 12 months, has l ack of transportation kept you from meetings, work, or from getting things needed for daily living? No 06/07/2023 Housing Stability Vital Sign Answer Eugenio e Recorded In the last 12 months, was t here a time when you were not able to pay the mortgage or rent on time? No 06/07/2023 In the last 12 months, how many places have you lived? 1 06/07/2023 In the last 12 months, was t here a time when you did not have a steady place to sleep or slept in a usp (including now)? No 06/07/2023 Area Deprivation Index Answer Date Nayan rded National Score (1-100), lower number is lower ri sk 64 06/17/2022 State Score (1-10), lower number is lower risk 4 06/17/2022 Data from: https://www.neighborhoodatlas.medicine.[facility].edu/. Last address used for calculation [address] 06/17/2022 Education Answer Date Recorded What is the highest level of school you have completed or the highest degree you have received? Master's degree (e.g., MA, MS, Birgit, MEd, JOURNEYMAN MILLWRIGHT, IVANIA) 10/15/2019 Comments No Sex and Gender [...] hearing? Answer Date of Assessment Author No 06/09/2023 11:01 AM Nupur Huber RN * Are you blind or do you have serious difficulty seeing, even when wearing glasses? Answer Date of Assessment Author No 06/09/2023 11:01 AM Nupur Huber RN * Do you have serious difficulty walking or climbing stairs? Answer Date of Assessment Author No 06/09/2023 11:02 AM Nupur Huber RN * Do you have difficulty dressing or bathing? Answer Date of Assessment Author No 06/09/2023 11:02 AM Nupur Huber RN * Because of a physical, mental, or emotional condition, do you have difficulty doing errands alone such as visiting a doctor's office or shopping? Answer Date of Assessment Author No 06/09/2023 11:02 AM Nupur Huber RN documented as of this encounter Mental Status * Because of a physical, mental, or emotional condition, do you have serious difficulty concentrating, remembering, or making decisions? Answer Entry Date Author No 06/09/2023 11:02 AM Nupur Huber RN documented in this encounter Plan of Treatment Upcoming Encounters Date Type Department Care Team (Latest Contact Info) Description 09/18/2024 12:30 PM EDT Infusion Center Hematology/Oncology [address] [place] [address] [place] [address] Hodges dressing and cap change;Labs as needed per patient 09/22/2024 12:30 PM EDT Office Visit Gastroenterology [address] [id number] Title One Kindergarten Teacher, Hpn [address] [place] [id number] HPN / PAGE [id number] 09/22/2024 1:00 PM EDT Office Visit Gastroenterology [address] [phone] Georgina Barkley MD [facility] [address] [place], [place] [id number] HPN / PAGE [id number] 09/25/2024 9:00 AM EDT Infusion Center Hematology/Oncology [address] [place] [address] [place] [address] Hodges dressing and cap change;Labs as needed per patient 09/29/2024 10:15 AM EDT Appointment [facility] Endoscopy - ENDO [address] [place] [address] [place] [address] [place] [address] EGD 10/02/2024 9:00 AM EDT Infusion Center Hematology/Oncology [address] [place] [address] [place] [address] Hodges dressing and cap change;Labs as needed per patient 10/09/2024 9:00 AM EDT Infusion Center Hematology/Oncology [address] [place] [address] [place] [address] Hodges dressing and cap change;Labs as needed per patient documented as of this encounter Visit Diagnoses Not on filedocumented in this encounter Care Teams Sports Equipment Repairer Relationship Specialty Start Date End Date Anna Mendez, WIRE STRETCHER.BUSINESS OFFICE MANAGER [address] [address] PCP - General 06/16/22 07/29/23 Thomas Alas MD [address] [place] [address] PCP - General Family Medicine 07/30/23 Antelmo Davey MD [address] [place] [address] 09/25/19 [place] [address] [place] [address] Consulting General Surgery 09/25/19 Shanna June CNP [address] [place] [address] Referring Family Medicine 10/19/19 Tj Najera PA [address] [place] [address] Referring Family Medicine 05/13/22 Georgina Barkley MD [address] [place] [address] Home Parenteral Nutrition Provider Gastroenterology 10/14/23 documented as of this encounter
--- OUTSIDE RECORDS SUMMARY | 2024-09-15 16:44 | XMS_ITS | Encounter Summary ---
Author Organization [facility] Address [address] [place] [address] Care Team Providers Care Circus Roustabout Name Role Phone Antelmo Davey MD Unavailable [phone] Deacon Valladares MD Unavailable Shanna June [facility] Unavailable [phone] Tj Najera Unavailable [phone] Anna Mendez APRN.[facility] Primary Care Provider Thomas Alas MD Primary Care Provider [phone] Georgina Barkley MD Unavailable [phone] Source Comments In the event this information is protected by the Federal Confidentiality of Alcohol and Drug AbusePatient Records regulations: The Federal rules restrict any use of the information to criminally investigate or prosecute any alcohol or drug abuse patient.[facility] Encounter Details Date Type Department Care Team (Late st Contact Info) Description 05/21/2023 Patient Msg Pain Management [address] [place] [address] Aryna Ramos MD [address] [place] [address] Appointment Request Social History Tobacco Use Types Packs/Day Years Used Date Smoking Tobacco: Never Smokeless Tobacco: Never Alcohol Use Standard Drinks/Week Comments Not Currently 0 (1 standard drink = 0.6 oz pur e alcohol) [facility] Utilities Answer Date Recorded In the past 12 months has th e electric, gas, oil, or water company threatened to shut off services in your home? No 05/21/2023 Social Connection and Isolat ion Panel [NHANES] Answer Date Recorded In a typical week, how many times do you talk on the phone with family, friends, or neighbors? More than three times a week 10/28/2022 How often do you get togethe r with friends or relatives? Once a week 10/28/2022 How often do you attend chur ch or sabianism services? 1 to 4 times per year 10/28/2022 Do you belong to any clubs o r organizations such as pentecostalism groups, unions, fraternal or athletic groups, or [...] Answer Date Recorded PHQ-2 score 2 11/12/2022 [facility] of Occupat ional Health - [...] the money to buy more. Never true 05/21/19 24 Within the past 12 months, t he food you bought just didn't last and you didn't have money to get more. Never true 05/21/2023 PRAPARE - Transportation Answer Date Re corded In the past 12 months, has l ack of transportation kept you from medical appointments or from getting medications? No 06/2023 In the past 12 months, has l ack of transportation kept you from meetings, work, or from getting things needed for daily living? No 05/21/2023 Housing Stability Vital Sign Answer Eugenio e Recorded In the last 12 months, was t here a time when you were not able to pay the mortgage or rent on time? No 05/21/2023 In the last 12 months, how many places have you lived? 1 05/21/2023 In the last 12 months, was t here a time when you did not have a steady place to sleep or slept in a snf (including now)? No 05/21/2023 Area Deprivation Index Answer Date Nayan rded National Score (1-100), lower number is lower ri sk 64 06/17/2022 State Score (1-10), lower number is lower risk 4 06/17/2022 Data from: https://www.neighborhoodatlas.medicine.[facility].edu/. Last address used for calculation [id number] 06/17/2022 Education Answer Date Recorded What is the highest level of school you have completed or the highest degree you have received? Master's degree (e.g., MA, MS, Birgit, MEd, PREVENTION COORDINATOR, IVANIA) 10/15/2019 Comments No Sex and [...] of Assessment Author No 12/09/2022 3:49 PM EDSharron Umaña RN * Are you blind or do [...] Author No 12/09/2022 3:49 PM EDT Sharron Abdlala RN documented in this encounter Plan of Treatment Upcoming Encounters Date Type Department Care Team (Latest Contact Info) Description 09/18/2024 12:30 PM EDT Infusion Center Hematology/Oncology [address] [place] [address] [place] [address] Hodges dressing and cap change;Labs as needed per patient 09/22/2024 12:30 PM EDT Office Visit Gastroenterology [address] [phone] School Aide, Hpn [address] [place] [address] HPN / PAGE [phone] 09/22/2024 1:00 PM EDT Office Visit Gastroenterology [address] [phone] Georgina Barkley MD [facility] [address] [place], [place] [id number] HPN / PAGE [id number] 09/25/2024 9:00 AM EDT Infusion Center Hematology/Oncology [address] [place] [address] Hodges dressing and cap change;Labs as needed per patient 09/29/2024 10:15 AM EDT Appointment [facility] Endoscopy - ENDO [address] [place] [address] [place] [address] [place] [address] EGD 10/02/2024 9:00 AM EDT Infusion Center Hematology/Oncology [address] [facility] [address] [place] [address] Hodges dressing and cap change;Labs as needed per patient 10/09/2024 9:00 AM EDT Infusion Center Hematology/Oncology [address] [place] [address] [place] [address] Hodges dressing and cap change;Labs as needed per patient documented as of this encounter Visit Diagnoses Not on filedocumented in this encounter Additional Health Concerns Infection Onset Date Last Indicated Resolved Time COVID-19 Rule-Out 06/06/2023 06/06/2023 06/06/2023 6:19 PM EDT documented as of this encounter Care Teams Circus Roustabout Relationship Specialty Start Date End Date Anna Mendez APRN.NETWORK COMMUNICATIONS ENGINEER [address] [facility] [address] [place] [address] PCP - General 06/16/22 07/29/23 Thomas Alas MD [address] [place] [address] PCP - General Family Medicine 07/30/23 Antelmo Davey MD [address] [place] [address] 09/25/19 [place] [address] [place] [address] Consulting General Surgery 09/25/19 Shanna June CNP [address] [place] [address] Referring Family Medicine 10/19/19 Tj Najera PA [address] [address] Referring Family Medicine 05/13/22 Georgina Barkley MD [address] [place] [address] Home Parenteral Nutrition Provider Gastroenterology 10/14/23 documented as of this encounter
--- OUTSIDE RECORDS SUMMARY | 2024-09-15 16:44 | XMS_ITS | Encounter Summary ---
Author Organization [facility] Address [address] [place] [address] Care Team Providers Care Market Development Specialist Name Role Phone Antelmo Davey MD Unavailable Deacon Valladares MD Unavailable [phone] Shanna June CNP Unavailable [phone] Shanna June CNP Primary Care Provider [phone] Rachel Foley MD Primary Care Provider [phone] Tj Najera Unavailable [phone] Anna Mendez APRN.[facility] Primary Care Provider Thomas Alas MD Primary Care Provider [phone] Georgina Barkley MD Unavailable [phone] Source Comments In the event this information is protected by the Federal Confidentiality of Alcohol and Drug AbusePatient Records regulations: The Federal rules restrict any use of the information to criminally investigate or prosecute any alcohol or drug abuse patient.[facility] Encounter Details Date Type Department Care Team (Late st Contact Info) Description 11/22/2020 Get Medical Advice BMI [facility] REJ [address] [place] [address] [place] [address] [place], [place] [phone] RE: Upcoming Appointment Question Social History Tobacco [...] PHQ-2 Answer Date Recorded PHQ-2 score 0 10/01/2020 Hunger Vital Sign Answer Date Recorded Within [...] N ot on file 01/21/2020 Data from: https://www.neighborhoodatlas.medicine.[facility].edu/. Last address used for calculation Not on file 01/21/2020 Education Answer Date Recorded What is the highest level of school you have completed or the highest degree you have received? Master's degree (e.g., MA, MS, Birgit, MEd, SCUTCHER TENDER, IVANIA) 10/15/2019 Comments No Sex and [...] Info) Description 09/18/2024 12:30 PM EDT [facility] Hematology/Oncology [address] [place] [address] [place] [address] Hodges dressing and cap change;Labs as needed per patient 09/22/2024 12:30 PM EDT Office Visit Gastroenterology [address] [address] Food And Beverage Operations Manager, Grupo [address] [place] [address] HPSanchez / PAGE [phone] 09/22/2024 1:00 PM EDT Office Visit Gastroenterology [address] [address] Georgina Barkley MD [facility] [address] [place], [place] [phone] HPN / PAGE [phone] 09/25/2024 9:00 AM EDT Infusion Center Hematology/Oncology [address] [place] [address] [place] [address] Hodges dressing and cap change;Labs as needed per patient 09/29/2024 10:15 AM EDT Appointment [facility] Endoscopy - ENDO [address] [place] [address] [place] [address] [place] [address] EGD 10/02/2024 9:00 AM EDT Infusion Center Hematology/Oncology [address] [place] [address] [place] [address] Hodges dressing and cap change;Labs as needed per patient 10/09/2024 9:00 AM EDT Infusion Center Hematology/Oncology [address] [place] [address] [place] [address] Hodges dressing and cap change;Labs as needed [...] documented as of this encounter Care Teams Market Development Specialist Relationship Specialty Start Date End Date Shanna June CNP [address] [place] [place] [address] PCP - General Family Medicine 01/31/20 01/18/22 Rachel Foley MD [address] [facility] [place] [address] PCP - General Family Medicine 01/19/22 06/15/22 Anna Mendez APRN.ENVIRONMENTAL COMPLIANCE INSPECTOR [address] [address] PCP - General 06/16/22 07/29/23 Thomas Alas MD [address] [place] [address] PCP - General Family Medicine 07/30/23 Antelmo Davey MD [address] [place] [address] 09/25/19 [place] [address] [place] [address] Consulting General Surgery 09/25/19 Shanna June, BETH [address] [place] [address] Referring Family Medicine 10/19/19 Tj Najera PA [address] [address] Referring Family Medicine 05/13/22 Georgina Barkley MD [address] [place] [address] Home Parenteral Nutrition Provider Gastroenterology 10/14/23 documented as of this encounter
--- OUTSIDE RECORDS SUMMARY | 2024-09-15 16:44 | XMS_ITS | Encounter Summary ---
Author Organization [facility] Address [address] [place] [address] Care Team Providers Care Rail Layer Name Role Phone Antelmo Davey MD Unavailable Deacon Valladares MD Unavailable Shanna June [facility] Unavailable [phone] Tj Najera Unavailable [phone] Anna Mendez APRN.[facility] Primary Care Provider Thomas Alas MD Primary Care Provider [phone] Georgina Barkley MD Unavailable [phone] Source Comments In the event this information is protected by the Federal Confidentiality of Alcohol and Drug AbusePatient Records regulations: The Federal rules restrict any use of the information to criminally investigate or prosecute any alcohol or drug abuse patient.[facility] Encounter Details Date Type Department Care Team (Late st Contact Info) Description 04/07/2023 Get Medical Advice Gastroenterology [address] [phone] Kasie Avalos MD [address] [place] [address] Symptoms Social History Tobacco Use Types Packs/Day [...] How often do you attend chur or yazidi services? 1 to 4 times per year [...] Answer Date Recorded PHQ-2 score 2 11/12/2022 [facility] of Occupat ional Health - Occupational Stress [...] is lower risk 4 06/17/2022 Data from: https://www.neighborhoodatlas.medicine.[facility].edu/. Last address used for calculation [address] [place] [address] RD [address] 06/17/2022 Education Answer Date Recorded What is the highest level of school you have completed or the highest degree you have received? Master's degree (e.g., MA, MS, Birgit, MEd, ADDICTIONS COUNSELOR ASSISTANT, IVANIA) 10/15/2019 Comments No Sex and [...] Sharron Abdalla RN documented in this encounter Miscellaneous Notes * Telephone Encounter - Grecia Arcos - 04/08/2023 8:41 AM EST There are no available appts before her scheduled appt 05/25 Grecia Wallace documented in this encounter Plan of Treatment Upcoming Encounters Date Type Department Care Team (Latest Contact Info) Description 09/18/2024 12:30 PM EDT Infusion Center Hematology/Oncology [address] [place] [address] [place] [address] Hodges dressing and cap change;Labs as needed per patient 09/22/2024 12:30 PM EDT Office Visit Gastroenterology [address] [address] Outside Medical Sales Representative, Rodneyn [address] [place] [address] HPN / PAGE [phone] 09/22/2024 1:00 PM EDT Office Visit Gastroenterology [address] [phone] Georgina Barkley MD [facility] [address] [phone] HPN / PAGE [phone] 09/25/2024 9:00 AM EDT Infusion Center Hematology/Oncology [address] [place] [address] [place] [address] Hodges dressing and cap change;Labs as needed per patient 09/29/2024 10:15 AM EDT Appointment [facility] Endoscopy - ENDO [address] [place] [address] [place] [address] [place], [place] [phone] EGD 10/02/2024 9:00 AM EDT Infusion Center Hematology/Oncology [address] [place] [address] [place] [address] Hodges dressing and cap change;Labs as needed per patient 10/09/2024 9:00 AM EDT Infusion Center Hematology/Oncology [address] [place] [address] [place] [address] Hodges dressing and cap change;Labs as needed per patient documented as of this encounter Visit Diagnoses Not on filedocumented in this encounter Additional Health Concerns Infection Onset Date Last Indicated Resolved Time COVID-19 Rule-Out 06/06/2023 06/06/2023 06/06/2023 6:19 PM EDT documented as of this encounter Care Teams Rail Layer Relationship Specialty Start Date End Date Anna Mendez, JAVA J2EE APPLICATION DEVELOPER.EMPLOYEE BENEFITS COORDINATOR [address] [facility] [address] [place] [address] PCP - General 06/16/22 07/29/23 Thomas Alas MD [address] [place] [address] PCP - General Family Medicine 07/30/23 Antelmo Davey MD [address] [place] [address] 09/25/19 [place] [address] [place] [address] Consulting General Surgery 09/25/19 Shanna June CNP [address] [place] [address] Referring Family Medicine 10/19/19 Tj Najera PA [address] [address] Referring Family Medicine 05/13/22 Georgina Barkley MD [address] [place] [address] Home Parenteral Nutrition Provider Gastroenterology 10/14/23 documented as of this encounter
--- OUTSIDE RECORDS SUMMARY | 2024-09-15 16:44 | XMS_ITS | Encounter Summary ---
Author Organization [facility] Address [address] [place] [address] Care Team Providers Care Upholsterer Limousine And Hearse Name Role Phone Antelmo Davey MD Unavailable [phone] Deacon Valladares MD Unavailable [phone] Shanna June CNP Unavailable [phone] Shanna June PRISON KEEPER Primary Care Provider [phone] Rachel Foley MD Primary Care Provider [phone] Tj Najera Unavailable [phone] Anna Mendez APRN.[facility] Primary Care Provider Thomas Alas MD Primary Care Provider +-[phone] Georgina Barkley MD Unavailable [phone] Source Comments In the event this information is protected by the Federal Confidentiality of Alcohol and Drug AbusePatient Records regulations: The Federal rules restrict any use of the information to criminally investigate or prosecute any alcohol or drug abuse patient.[facility] Encounter Details Date Type Department Care Team (Late st Contact Info) Description 03/21/2021 Patient Msg General Surgery [address] [phone] Breanna Boyer APRN.PRISON KEEPER [address] [phone] Appointment Request Social History Tobacco Use Types [...] N ot on file 01/21/2020 Data from: https://www.neighborhoodatlas.medicine.[facility].edu/. Last address used for calculation Not on file 01/21/2020 Education Answer Date Recorded What is the highest level of school you have completed or the highest degree you have received? Master's degree (e.g., MA, MS, Birgit, MEd, GENERAL MAINTENANCE MECHANIC, IVANIA) 10/15/2019 Comments No Sex [...] 09/18/2024 12:30 PM EDT Infusion Center Hematology/Oncology [address] [place] [address] [place] [address] Hodges dressing and cap change;Labs as needed per patient 09/22/2024 12:30 PM EDT Office Visit Gastroenterology [address] [address] Communications Coordinator, Grupo [address] [place] [address] GRUPO / PAGE [id number] 09/22/2024 1:00 PM EDT Office Visit Gastroenterology [address] [phone] Georgina Barkley MD [facility] [address] [id number] HPN / PAGE [id number] 09/25/2024 9:00 AM EDT Infusion Center Hematology/Oncology [address] [place] [address] [place] [address] Hodges dressing and cap change;Labs as needed per patient 09/29/2024 10:15 AM EDT Appointment [facility] Endoscopy - ENDO [address] [place] [address] [place] [address] [place], [place] [phone] EGD 10/02/2024 9:00 AM EDT Infusion Center Hematology/Oncology [address] [place] [address] [place] [address] Hodges dressing and cap change;Labs as needed per patient 10/09/2024 9:00 AM EDT Infusion Center Hematology/Oncology [address] [place] [address] [place] [address] Hodges dressing and cap change;Labs as needed per patient documented as of this encounter Visit Diagnoses Not on filedocumented in this encounter Additional Health Concerns Infection Onset Date Last Indicated Resolved Time COVID-19 Rule-Out 01/29/2022 01/29/2022 01/29/2022 6:59 PM EST COVID-19 Rule-Out 06/06/2023 06/06/2023 06/06/2023 6:19 PM EDT documented as of this encounter Care Teams Upholsterer Limousine And Hearse Relationship Specialty Start Date End Date Shanna June CNP [address] [place] [address] PCP - General Family Medicine 01/31/20 01/18/22 Rachel Foley MD [address] [place] [facility] [place] [address] PCP - General Family Medicine 01/19/22 06/15/22 Anna Mendez APRN.PRISON KEEPER [address] [place] [address] PCP - General 06/16/22 07/29/23 Thomas Alas MD [address] [place] [address] PCP - General Family Medicine 07/30/23 Antelmo Davey MD [address] [place] [address] 09/25/19 [place] [address] [place] [address] Consulting General Surgery 09/25/19 Shanna June, BETH [address] [place] [address] Referring Family Medicine 10/19/19 Tj Najera PA [address] [address] Referring Family Medicine 05/13/22 Georgina Barkley MD [address] [place] [address] Home Parenteral Nutrition Provider Gastroenterology 10/14/23 documented as of this encounter
--- OUTSIDE RECORDS SUMMARY | 2024-09-15 16:44 | XMS_ITS | Encounter Summary ---
Author Organization [facility] Address [address] [place] [address] Care Team Providers Care Finishing Range Operator Name Role Phone Antelmo Davey MD Unavailable Deacon Valladares MD Unavailable [phone] Shanna June [facility] Unavailable [phone] Tj Najera Unavailable [phone] Anna Mendez APRN.[facility] Primary Care Provider Thomas Alas MD Primary Care Provider [phone] Georgina Barkley MD Unavailable [phone] Source Comments In the event this information is protected by the Federal Confidentiality of Alcohol and Drug AbusePatient Records regulations: The Federal rules restrict any use of the information to criminally investigate or prosecute any alcohol or drug abuse patient.[facility] Encounter Details Date Type Department Care Team (Late st Contact Info) Description 05/31/2023 Get Medical Advice General Surgery [address] [place], [place] [phone] [place] [address] [place] [address] Return to work Social History Tobacco Use Types Packs/Day Years Used Date Smoking Tobacco: Never Smokeless Tobacco: Never Alcohol Use Standard Drinks/Week Comments Not Currently 0 (1 standard drink = 0.6 oz pur e alcohol) [facility] Utilities Answer Date Recorded In the past 12 months has e electric, gas, oil, or water company threatened to shut off services in your home? No 05/26/2023 Social Connection and Isolat ion Panel [NHANES] Answer Date Recorded In a typical week, how many times do you talk on the phone with family, friends, or neighbors? More than three times a week 10/28/2022 How often do you get togethe r with friends or relatives? Once a week 10/28/2022 How often do you attend chur ch or rastafarian services? 1 to 4 times [...] PHQ-2 Answer Date Recorded PHQ-2 score 2 05/30/2023 [facility] - Occupational [...] the money to buy more. Never true 05/26/19 24 Within the past 12 months, t he food you bought just didn't last and you didn't have money to get more. Never true 05/26/2023 PRAPARE - Transportation Answer Date Re corded In the past 12 months, has l ack of transportation kept you from medical appointments or from getting medications? No 05/16 In the past 12 months, has l ack of transportation kept you from meetings, work, or from getting things needed for daily living? No 05/26/2023 Housing Stability Vital Sign Answer Eugenio e Recorded In the last 12 months, was t here a time when you were not able to pay the mortgage or rent on time? No 05/26/2023 In the last 12 months, how many places have you lived? 1 05/26/2023 In the last 12 months, was t here a time when you did not have a steady place to sleep or slept in a intermediate (including now)? No 05/26/2023 Area Deprivation Index Answer Date Nayan rded National Score (1-100), lower number is lower ri sk 64 06/17/2022 State Score (1-10), lower number is lower risk 4 06/17/2022 Data from: https://www.neighborhoodatlas.medicine.[facility].edu/. Last address used for calculation [address] 06/17/2022 Education Answer Date Recorded What is the highest level of school you have completed or the highest degree you have received? Master's degree (e.g., MA, MS, Birgit, MEd, DIRECTOR OF EMPLOYER SERVICES, IVANIA) 10/15/2019 Comments No Sex and Gender [...] hearing? Answer Date of Assessment Author No 05/28/2023 10:57 AM Mercedes Dwyer RN * Are you blind or do you have serious difficulty seeing, even when wearing glasses? Answer Date of Assessment Author No 05/28/2023 10:57 AM Mercedes Dwyer RN * Do you have serious difficulty walking or climbing stairs? Answer Date of Assessment Author No 05/28/2023 10:57 AM Mercedes Dwyer RN * Do you have difficulty dressing or bathing? Answer Date of Assessment Author No 05/28/2023 10:57 AM Mercedes Dwyer RN * Because of a physical, mental, or emotional condition, do you have difficulty doing errands alone such as visiting a doctor's office or shopping? Answer Date of Assessment Author No 05/28/2023 10:57 AM Mercedes Dwyer RN documented as of this encounter Mental Status * Because of a physical, mental, or emotional condition, do you have serious difficulty concentrating, remembering, or making decisions? Answer Entry Date Author No 05/28/2023 10:58 AM Mercedes Dwyer RN documented in this encounter Plan of Treatment Upcoming Encounters Date Type Department Care Team (Latest Contact Info) Description 09/18/2024 12:30 PM EDT Infusion Center Hematology/Oncology [address] [place] [address] [place] [address] Carroll dressing and cap change;Labs as needed per patient 09/22/2024 12:30 PM EDT Office Visit Gastroenterology [address] [phone] Fbi Field Agent, Grupo [address] [place] [address] HPSanchez / PAGE [id number] 09/22/2024 1:00 PM EDT Office Visit Gastroenterology [address] [address] Georgina Barkley MD [facility] [address] [phone] HPN / PAGE [id number] 09/25/2024 9:00 AM EDT Infusion Center Hematology/Oncology [address] [place] [address] [place] [address] Hodges dressing and cap change;Labs as needed per patient 09/29/2024 10:15 AM EDT Appointment [facility] Endoscopy - ENDO [address] [place] [address] [place] [address] [place] [address] EGD 10/02/2024 9:00 AM EDT Infusion Center Hematology/Oncology [address] [place] [address] [place] [address] Hodges dressing and cap change;Labs as needed per patient 10/09/2024 9:00 AM EDT Infusion Center Hematology/Oncology [address] [place] [address] [place] [address] Hodges dressing and cap change;Labs as needed per patient documented as of this encounter Visit Diagnoses Not on filedocumented in this encounter Additional Health Concerns Infection Onset Date Last Indicated Resolved Time COVID-19 Rule-Out 06/06/2023 06/06/2023 06/06/2023 6:19 PM EDT documented as of this encounter Care Teams Finishing Range Operator Relationship Specialty Start Date End Date Anna Mendez APRN.HOISTING ENGINEER PILE DRIVING [address] [address] PCP - General 06/16/22 07/29/23 Thomas Alas MD [address] [place] [address] PCP - General Family Medicine 07/30/23 Antelmo Davey MD [address] [place] [address] 09/25/19 [place] [address] [place] [address] Consulting General Surgery 09/25/19 Shanna June CNP [address] [place] [address] Referring Family Medicine 10/19/19 Tj Najera PA [address] [address] Referring Family Medicine 05/13/22 Georgina Barkley MD [address] [place] [address] Home Parenteral Nutrition Provider Gastroenterology 10/14/23 documented as of this encounter
--- OUTSIDE RECORDS SUMMARY | 2024-09-15 16:44 | XMS_ITS | Encounter Summary ---
Author Organization [facility] Address [address] [place] [address] Care Team Providers Care Machine Castings Plasterer Name Role Phone Antelmo Davey MD Unavailable Deacno Valladares MD Unavailable [phone] Shanna June [facility] Unavailable [phone] Tj Najera Unavailable [phone] Anna Mendez APRN.[facility] Primary Care Provider Thomas Alas MD Primary Care Provider [phone] Georgina Barkley MD Unavailable [phone] Source Comments In the event this information is protected by the Federal Confidentiality of Alcohol and Drug AbusePatient Records regulations: The Federal rules restrict any use of the information to criminally investigate or prosecute any alcohol or drug abuse patient.[facility] Encounter Details Date Type Department Care Team (Late st Contact Info) Description 04/26/2023 Abstract Gastroenterology [address] [phone] Linda Hale RN Social History Tobacco Use [...] How often do you attend chur or sabianism services? 1 to 4 times [...] Answer Date Recorded PHQ-2 score 2 11/12/2022 [facility] of Occupat ional Health - Occupational Stress [...] slept in a mcc (including now)? No 12/06/2022 Area Deprivation Index Answer Date Nayan rded National Score (1-100), lower number is lower ri sk 64 06/17/2022 State Score (1-10), lower number is lower risk 4 06/17/2022 Data from: https://www.neighborhoodatlas.medicine.[facility].edu/. Last address used for calculation [id number] [place] [address] [address] 06/17/2022 Education Answer Date Recorded What is the highest level of school you have completed or the highest degree you have received? Master's degree (e.g., MA, MS, Birgit, MEd, PHLEBOTOMY SUPPORT TECH, IVANIA) 10/15/2019 Comments No Sex and Gender [...] of Assessment Author No 12/09/2022 3:49 PM Sharron Helms, RN * Are you blind or do [...] 12:30 PM EDT Infusion Center Hematology/Oncology [address] [place] [address] [place] [address] Hodges dressing and cap change;Labs as needed per patient 09/22/2024 12:30 PM EDT Office Visit Gastroenterology [address] [phone] Marketing Secretary, Hpn [address] [id number] HPN / PAGE [id number] 09/22/2024 1:00 PM EDT Office Visit Gastroenterology [address] [phone] Georgina Barkley MD [facility] [address] [place] [address] HPN / PAGE [id number] 09/25/2024 9:00 AM EDT Infusion Center Hematology/Oncology [address] [place] [address] [place] [address] Hodges dressing and cap change;Labs as needed per patient 09/29/2024 10:15 AM EDT Appointment [facility] Endoscopy - ENDO [address] [place] [address] [place] [address] [place] [address] EGD 10/02/2024 9:00 AM EDT Infusion Center Hematology/Oncology [address] [place] [address] [place] [address] Hodges dressing and cap change;Labs as needed per patient 10/09/2024 9:00 AM EDT Infusion Center Hematology/Oncology [address] [place] [address] [place] [address] Hodges dressing and cap change;Labs as needed per patient documented as of this encounter Visit Diagnoses Not on filedocumented in this encounter Additional Health Concerns Infection Onset Date Last Indicated Resolved Time COVID-19 Rule-Out 06/06/2023 06/06/2023 06/06/2023 6:19 PM EDT documented as of this encounter Care Teams Machine Castings Plasterer Relationship Specialty Start Date End Date Anna Mendez, PARTICLEBOARD FACTORY WORKER.LITHOGRAPH PRINTER [address] [place] [address] PCP - General 06/16/22 07/29/23 Thomas Alas MD [address] [place] [address] PCP - General Family Medicine 07/30/23 Antelmo Davey MD [address] [place] [address] 09/25/19 [place] [address] [place] [address] Consulting General Surgery 09/25/19 Shanna June CNP [address] [place] [address] Referring Family Medicine 10/19/19 Tj Najera PA [address] [address] Referring Family Medicine 05/13/22 Georgina Barkley MD [address] [place] [address] Home Parenteral Nutrition Provider Gastroenterology 10/14/23 documented as of this encounter
--- OUTSIDE RECORDS SUMMARY | 2024-09-15 16:44 | XMS_ITS | Encounter Summary ---
Author Organization [facility] Address [address] [place] [address] Care Team Providers Care Riprap Man Name Role Phone Antelmo Davey MD Unavailable Deacon Valladares MD Unavailable [phone] Shanna June [facility] Unavailable [phone] Tj Najera Unavailable [phone] Anna Mendez APRN.[facility] Primary Care Provider Thomas Alas MD Primary Care Provider [phone] Georgina Barkley MD Unavailable [phone] Source Comments In the event this information is protected by the Federal Confidentiality of Alcohol and Drug AbusePatient Records regulations: The Federal rules restrict any use of the information to criminally investigate or prosecute any alcohol or drug abuse patient.[facility] Encounter Details Date Type Department Care Team (Late st Contact Info) Description 05/28/2023 Get Medical Advice General Surgery [address] [place], [place] [phone] [place] [address] [place] [address] Nutrin 2.0 Social History Tobacco Use Types Packs/Day Years Used Date Smoking Tobacco: Never Smokeless Tobacco: Never Alcohol Use Standard Drinks/Week Comments Not Currently 0 (1 standard drink = 0.6 oz pur e alcohol) [facility] Utilities Answer Date Recorded In the [...] often do you attend chur ch or hinduism services? 1 to 4 times per year [...] Answer Date Recorded PHQ-2 score 2 05/30/2023 [facility] Occupat ional Health - Occupational [...] slept in a alf (including now)? No 05/26/2023 Area Deprivation Index Answer Date Nayan rded National Score (1-100), lower number is lower ri sk 64 06/17/2022 State Score (1-10), lower number is lower risk 4 06/17/2022 Data from: https://www.neighborhoodatlas.medicine.[facility].edu/. Last address used for calculation [address] 06/17/2022 Education Answer Date Recorded What is the highest level of school you have completed or the highest degree you have received? Master's degree (e.g., MA, MS, Birgit, MEd, STUDENT DEVELOPMENT SPECIALIST, IVANIA) 10/15/2019 Comments No Sex and [...] Description 09/18/2024 12:30 PM EDT [facility] Center Hematology/Oncology [address] [place] [address] [place] [address] Hodges dressing and cap change;Labs as needed per patient 09/22/2024 12:30 PM EDT Office Visit Gastroenterology [address] [address] Frozen Foods Manager, Grupo [address] [place] [address] HPSanchez / PAGE [id number] 09/22/2024 1:00 PM EDT Office Visit Gastroenterology [address] [address] Georgina Barkley MD [facility] [address] [place], [place] [address] HPN / PAGE [id number] 09/25/2024 9:00 AM EDT Infusion Center Hematology/Oncology [address] [place] [address] [place] [address] Hodges dressing and cap change;Labs as needed per patient 09/29/2024 10:15 AM EDT Appointment [facility] Endoscopy - ENDO [address] [place] [address] [place] [address] [place] [address] EGD 10/02/2024 9:00 AM EDT Infusion Center Hematology/Oncology [address] [place] [address] [place] [address] Hodges dressing and cap change;Labs as needed per patient 10/09/2024 9:00 AM EDT Infusion Center Hematology/Oncology [address] [place] [address] [place] [address] Hodges dressing and cap change;Labs as needed per patient documented as of this encounter Visit Diagnoses Not on filedocumented in this encounter Additional Health Concerns Infection Onset Date Last Indicated Resolved Time COVID-19 Rule-Out 06/06/2023 06/06/2023 06/06/2023 6:19 PM EDT documented as of this encounter Care Teams Riprap Man Relationship Specialty Start Date End Date Anna Mendez APRN.CONTRACT ASSISTANT [address] [address] PCP - General 06/16/22 07/29/23 Thomas Alas MD [address] [place] [address] PCP - General Family Medicine 07/30/23 Antelmo Davey MD [address] [place] [address] 09/25/19 [place] [address] [place] [address] Consulting General Surgery 09/25/19 Shanna June CNP [address] [facility] [place] [address] Referring Family Medicine 10/19/19 Tj Najera PA [address] [facility] [address] [place] [address] Referring Family Medicine 05/13/22 Georgina Barkley MD [address] [place] [address] Home Parenteral Nutrition Provider Gastroenterology 10/14/23 documented as of this encounter
--- OUTSIDE RECORDS SUMMARY | 2024-09-15 16:44 | XMS_ITS | Encounter Summary ---
Author Organization [facility] Address [address] [place] [address] Care Team Providers Care Spray Technician Name Role Phone Antelmo Davey MD Unavailable [phone] Deacon Valladares MD Unavailable [phone] Shanna June CNP Unavailable [phone] Shanna June CNP Primary Care Provider [phone] Rachel Foley MD Primary Care Provider [phone] Tj Najera Unavailable [phone] Anna Mendez APRN.[facility] Primary Care Provider Thomas Alas MD Primary Care Provider +-[phone] Georgina Barkley MD Unavailable [phone] Source Comments In the event this information is protected by the Federal Confidentiality of Alcohol and Drug AbusePatient Records regulations: The Federal rules restrict any use of the information to criminally investigate or prosecute any alcohol or drug abuse patient.[facility] Encounter Details Date Type Department Care Team (Late st Contact Info) Description 11/20/2020 Get Medical Advice BMI [facility] REJ [address] [place] [address] [place] [address] [place], [place] [phone] RE: Upcoming Appointment Question Social History Tobacco [...] N ot on file 01/21/2020 Data from: https://www.neighborhoodatlas.medicine.[facility].edu/. Last address used for calculation Not on file 01/21/2020 Education Answer Date Recorded What is the highest level of school you have completed or the highest degree you have received? Master's degree (e.g., MA, MS, Birgit, MEd, TECHNICAL PROJECT COORDINATOR, IVANIA) 10/15/2019 Comments No Sex and [...] Description 09/18/2024 12:30 PM EDT [facility] Center Hematology/Oncology [address] [place] [address] [place] [address] Hodges dressing and cap change;Labs as needed per patient 09/22/2024 12:30 PM EDT Office Visit Gastroenterology [address] [address] Insights Strategist, Grupo [address] [place] [address] HPSanchez / PAGE [phone] 09/22/2024 1:00 PM EDT Office Visit Gastroenterology [address] [address] Georgina Barkley MD [facility] [address] [place], [place] [address] HPN / PAGE [id number] 09/25/2024 9:00 AM EDT Infusion Center Hematology/Oncology [address] [place] [address] [place] [address] Hodges dressing and cap change;Labs as needed per patient 09/29/2024 10:15 AM EDT Appointment [facility] Endoscopy - ENDO [address] [place] [address] [place] [address] [place] [address] EGD 10/02/2024 9:00 AM EDT Infusion Center Hematology/Oncology [address] [place] [address] [place] [address] Hodges dressing and cap change;Labs as needed per patient 10/09/2024 9:00 AM EDT Infusion Center Hematology/Oncology [address] [place] [address] [place] [address] Hodges dressing and cap change;Labs as needed [...] documented as of this encounter Care Teams Spray Technician Relationship Specialty Start Date End Date Shanna June CNP [address] [place] [address] PCP - General Family Medicine 01/31/20 01/18/22 Rachel Foley MD [address] [facility] [place] [address] PCP - General Family Medicine 01/19/22 06/15/22 Anna Mendez APRN.SHIRT SEWER [address] [address] PCP - General 06/16/22 07/29/23 Thomas Alas MD [address] [place] [address] PCP - General Family Medicine 07/30/23 Antelmo Davey MD [address] [place] [address] 09/25/19 [place] [address] [place] [address] Consulting General Surgery 09/25/19 Shanna June, BETH [address] [place] [address] Referring Family Medicine 10/19/19 Tj Najera PA [address] [address] Referring Family Medicine 05/13/22 Georgina Barkley MD [address] [place] [address] Home Parenteral Nutrition Provider Gastroenterology 10/14/23 documented as of this encounter
--- OUTSIDE RECORDS SUMMARY | 2024-09-15 16:44 | XMS_ITS | Encounter Summary ---
Author Organization [facility] Address [address] [place] [address] Care Team Providers Care Receiving Teller Name Role Phone Antelmo Davey MD Unavailable [phone] Deacon Valladares MD Unavailable [phone] Shanna June [facility] Unavailable [phone] Tj Najera Unavailable [phone] Anna Mendez APRN.[facility] Primary Care Provider Thomas Alas MD Primary Care Provider [phone] Georgina Barkley MD Unavailable [phone] Source Comments In the event this information is protected by the Federal Confidentiality of Alcohol and Drug AbusePatient Records regulations: The Federal rules restrict any use of the information to criminally investigate or prosecute any alcohol or drug abuse patient.[facility] Encounter Details Date Type Department Care Team (Late st Contact Info) Description 07/20/2023 Get Medical Advice General Surgery [address] [place], [place] [phone] [place] [address] [place] [address] Intestinal Transplant Program Social History Tobacco Use Types Packs/Day Years Used Date Smoking Tobacco: Never Smokeless Tobacco: Never Alcohol Use Standard Drinks/Week Comments Not Currently 0 (1 standard drink = 0.6 oz pur e alcohol) [facility] Utilities Answer Date Recorded In the past 12 months has e electric, gas, oil, or water company threatened to shut off services in your home? No 07/19/2023 Social Connection and Isolat ion Panel [NHANES] Answer Date Recorded In a typical week, how many times do you talk on the phone with family, friends, or neighbors? More than three times a week 10/28/2022 How often do you get togethe r with friends or relatives? Once a week 10/28/2022 How often do you attend chur ch or taoism services? 1 to 4 times per year 10/28/2022 Do you belong to any clubs o r organizations such as roman catholic groups, unions, fraternal or athletic groups, [...] Answer Date Recorded PHQ-2 score 2 07/09/2023 [facility] - [...] the money to buy more. Never true 07/19/19 24 Within the past 12 months, t he food you bought just didn't last and you didn't have money to get more. Never true 07/19/2023 PRAPARE - Transportation Answer Date Re corded In the past 12 months, has l ack of transportation kept you from medical appointments or from getting medications? No 04/2023 In the past 12 months, has l ack of transportation kept you from meetings, work, or from getting things needed for daily living? No 07/19/2023 Housing Stability Vital Sign Answer Eugenio e Recorded In the last 12 months, was t here a time when you were not able to pay the mortgage or rent on time? No 07/19/2023 In the last 12 months, how many places have you lived? 1 07/19/2023 In the last 12 months, was t here a time when you did not have a steady place to sleep or slept in a prison (including now)? No 07/19/2023 Area Deprivation Index Answer Date Nayan rded National Score (1-100), lower number is lower ri sk 64 06/17/2022 State Score (1-10), lower number is lower risk 4 06/17/2022 Data from: https://www.neighborhoodatlas.medicine.[facility].edu/. Last address used for calculation [address] 06/17/2022 Education Answer Date Recorded What is the highest level of school you have completed or the highest degree you have received? Master's degree (e.g., MA, MS, Birgit, MEd, MOLD TOOLING TECHNICIAN, IVANIA) 10/15/2019 Comments No Sex and [...] hearing? Answer Date of Assessment Author No 07/20/2023 12:39 PM EDT Channing Mcdonald RN * Are you blind or do you have serious difficulty seeing, even when wearing glasses? Answer Date of Assessment Author No 07/20/2023 12:39 PM EDT Channing Mcdonald RN * Do you have serious difficulty walking or climbing stairs? Answer Date of Assessment Author No 07/20/2023 12:39 PM EDT Channing Mcdonald RN * Do you have difficulty dressing or bathing? Answer Date of Assessment Author No 07/20/2023 12:39 PM EDT Channing Mcdonald RN * Because of a physical, mental, or emotional condition, do you have difficulty doing errands alone such as visiting a doctor's office or shopping? Answer Date of Assessment Author No 07/20/2023 12:39 PM EDT Channing Mcdonald RN documented as of this encounter Mental Status * Because of a physical, mental, or emotional condition, do you have serious difficulty concentrating, remembering, or making decisions? Answer Entry Date Author No 07/20/2023 12:39 PM JUNT Channing Mcdonald RN documented in this encounter Plan of Treatment Upcoming Encounters Date Type Department Care Team (Latest Contact Info) Description 09/18/2024 12:30 PM EDT [facility] Center Hematology/Oncology [address] [place] [address] [place] [address] Hodges dressing and cap change;Labs as needed per patient 09/22/2024 12:30 PM EDT Office Visit Gastroenterology [address] [id number] Spinning Operator, Hpn [address] [place] [address] HPN / PAGE [id number] 09/22/2024 1:00 PM EDT Office Visit Gastroenterology [address] [id number] Georgina Barkley MD [facility] [address] [id number] HPN / PAGE [id number] 09/25/2024 9:00 AM EDT Infusion Center Hematology/Oncology [address] [place] [address] [place] [address] Hodges dressing and cap change;Labs as needed per patient 09/29/2024 10:15 AM EDT Appointment [facility] Endoscopy - ENDO [address] [place] [address] [place] [address] [place] [address] EGD 10/02/2024 9:00 AM EDT Infusion Center Hematology/Oncology [address] [place] [address] [place] [address] Hodges dressing and cap change;Labs as needed per patient 10/09/2024 9:00 AM EDT Infusion Center Hematology/Oncology [address] [place] [address] [place] [address] Hodges dressing and cap change;Labs as needed per patient documented as of this encounter Visit Diagnoses Not on filedocumented in this encounter Care Teams Receiving Teller Relationship Specialty Start Date End Date Anna Mendez APRN.MED DIR [address] [address] PCP - General 06/16/22 07/29/23 Thomas Alas MD [address] [place] [address] PCP - General Family Medicine 07/30/23 Antelmo Davey MD [address] [place] [address] 09/25/19 [place] [address] [place] [address] Consulting General Surgery 09/25/19 Shanna June CNP [address] [place] [address] Referring Family Medicine 10/19/19 Tj Najera PA [address] [facility] [address] [place] [address] Referring Family Medicine 05/13/22 Georgina Barkley MD [address] [place] [address] Home Parenteral Nutrition Provider Gastroenterology 10/14/23 documented as of this encounter
--- OUTSIDE RECORDS SUMMARY | 2024-09-15 16:44 | XMS_ITS | Encounter Summary ---
Author Organization [facility] Address [address] [place] [address] Care Team Providers Care Welding Manager Name Role Phone Antelmo Davey MD Unavailable [phone] Deacon Valladares MD Unavailable Shanna June [facility] Unavailable [phone] Tj Najera Unavailable [phone] Anna Mendez APRN.[facility] Primary Care Provider Thomas Alas MD Primary Care Provider [phone] Georgina Barkley MD Unavailable [phone] Source Comments In the event this information is protected by the Federal Confidentiality of Alcohol and Drug AbusePatient Records regulations: The Federal rules restrict any use of the information to criminally investigate or prosecute any alcohol or drug abuse patient.[facility] Encounter Details Date Type Department Care Team (Late st Contact Info) Description 07/06/2023 Get Medical Advice PAIN [place] [address] [place], [place] [id number] Aryan Ramos MD [address] [place] [address] [place] [address] Medication Social History Tobacco Use Types Packs/Day Years Used Date Smoking Tobacco: Never Smokeless Tobacco: Never Alcohol Use Standard Drinks/Week Comments Not Currently 0 (1 standard drink = 0.6 oz pur e alcohol) [facility] Utilities Answer Date Recorded In [...] any clubs o r organizations such as oriental orthodox groups, unions, fraternal or athletic groups, or [...] slept in a intermediate (including now)? No 06/07/2023 Area Deprivation Index Answer Date Nayan rded National Score (1-100), lower number is lower ri sk 64 06/17/2022 State Score (1-10), lower number is lower risk 4 06/17/2022 Data from: https://www.neighborhoodatlas.medicine.[facility].edu/. Last address used for calculation [address] 06/17/2022 Education Answer Date Recorded What is the highest level of school you have completed or the highest degree you have received? Master's degree (e.g., MA, MS, Birgit, MEd, SENIOR APPLICATION SOFTWARE ENGINEER, IVANIA) 10/15/2019 Comments No Sex and [...] of Assessment Author No 06/09/2023 11:02 AM EDNupur Clark RN * Do you have difficulty dressing [...] Info) Description 09/18/2024 12:30 PM EDT [facility] Hematology/Oncology [address] [place] [address] [place] [address] Hodges dressing and cap change;Labs as needed per patient 09/22/2024 12:30 PM EDT Office Visit Gastroenterology [address] [place] [address] Auto Machinist, Hpn [address] [place] [address] HPN / PAGE [id number] 09/22/2024 1:00 PM EDT Office Visit Gastroenterology [address] [phone] Georgina Barkley MD [facility] [address] [place], [place] [phone] HPN / PAGE [phone] 09/25/2024 9:00 AM EDT Infusion Center Hematology/Oncology [address] [place] [address] Hodges dressing and cap change;Labs as needed per patient 09/29/2024 10:15 AM EDT Appointment [facility] Endoscopy - ENDO [address] [place] [address] [place] [address] [place] [address] EGD 10/02/2024 9:00 AM EDT Infusion Center Hematology/Oncology [address] [place] [address] Hodges dressing and cap change;Labs as needed per patient 10/09/2024 9:00 AM EDT Infusion Center Hematology/Oncology [address] [place] [address] [place] [address] Hodges dressing and cap change;Labs as needed per patient documented as of this encounter Visit Diagnoses Not on filedocumented in this encounter Care Teams Welding Manager Relationship Specialty Start Date End Date Anna Mendez APRN.PARKING PATROLLER [address] [address] PCP - General 06/16/22 07/29/23 Thomas Alas MD [address] [place] [address] PCP - General Family Medicine 07/30/23 Antelmo Davey MD [address] [place] [address] 09/25/19 [place] [address] [place] [address] Consulting General Surgery 09/25/19 Shanna June, BETH [address] [place] [address] Referring Family Medicine 10/19/19 Tj Najera PA [address] [place] [address] Referring Family Medicine 05/13/22 Georgina Barkley MD [address] [place] [address] Home Parenteral Nutrition Provider Gastroenterology 10/14/23 documented as of this encounter
--- OUTSIDE RECORDS SUMMARY | 2024-09-15 16:44 | XMS_ITS | Encounter Summary ---
Author Organization [facility] Address [address] [place] [address] Care Team Providers Care Private Eye Name Role Phone Antelmo Davey MD Unavailable Deacon Valladares MD Unavailable Shanna June [facility] Unavailable [phone] Tj Najera Unavailable [phone] Anna Mendez APRN.[facility] Primary Care Provider Thomas Alas MD Primary Care Provider [phone] Georgina Barkley MD Unavailable [phone] Source Comments In the event this information is protected by the Federal Confidentiality of Alcohol and Drug AbusePatient Records regulations: The Federal rules restrict any use of the information to criminally investigate or prosecute any alcohol or drug abuse patient.[facility] Encounter Details Date Type Department Care Team (Late st Contact Info) Description 06/16/2023 Get Medical Advice General Surgery [address] [place], [place] [phone] [place] [address] [place] [address] Disability Social History Tobacco Use Types Packs/Day Years Used Date Smoking Tobacco: Never Smokeless Tobacco: Never Alcohol Use Standard Drinks/Week Comments Not Currently 0 (1 standard drink = 0.6 oz pur e alcohol) [facility] Utilities Answer Date Recorded In the [...] any clubs o r organizations such as mormonism groups, unions, fraternal or athletic groups, or [...] PHQ-2 Answer Date Recorded PHQ-2 score 2 06/09/2023 [facility] [...] in a skilled nursing (including now)? No 06/07/2023 Area Deprivation Index Answer Date Nayan rded National Score (1-100), lower number is lower ri sk 64 06/17/2022 State Score (1-10), lower number is lower risk 4 06/17/2022 Data from: https://www.neighborhoodatlas.medicine.[facility].edu/. Last address used for calculation [address] 06/17/2022 Education Answer Date Recorded What is the highest level of school you have completed or the highest degree you have received? Master's degree (e.g., MA, MS, Birgit, MEd, BUILDING INSULATION SUPERVISOR, IVANIA) 10/15/2019 Comments No Sex and [...] of Assessment Author No 06/09/2023 11:01 AM EDNupur Clark RN * Are you blind or do you have serious difficulty seeing, even when wearing glasses? Answer Date of Assessment Author No 06/09/2023 11:01 AM Nupur Huber RN * Do you have serious difficulty walking or climbing stairs? Answer Date of Assessment Author No 06/09/2023 11:02 AM EDT Nupur Mccall RN * Do you have difficulty dressing [...] 09/18/2024 12:30 PM EDT Infusion Center Hematology/Oncology [address] [place] [address] [place] [address] Hodges dressing and cap change;Labs as needed per patient 09/22/2024 12:30 PM EDT Office Visit Gastroenterology [address] [phone] Congregational Care Pastor, Hpn [address] [place] [address] HPN / PAGE [phone] 09/22/2024 1:00 PM EDT Office Visit Gastroenterology [address] [phone] Georgina Barkley MD [facility] [address] [phone] HPN / PAGE [id number] 09/25/2024 9:00 AM EDT Infusion Center Hematology/Oncology [address] [facility] [place] [address] Hodges dressing and cap change;Labs as needed per patient 09/29/2024 10:15 AM EDT Appointment [facility] Endoscopy - ENDO [address] [place] [address] [place] [address] [place] [address] EGD 10/02/2024 9:00 AM EDT Infusion Center Hematology/Oncology [address] [facility] [place] [address] Hodges dressing and cap change;Labs as needed per patient 10/09/2024 9:00 AM EDT Infusion Center Hematology/Oncology [address] [facility] [place] [address] Hodges dressing and cap change;Labs as needed per patient documented as of this encounter Visit Diagnoses Not on filedocumented in this encounter Care Teams Private Eye Relationship Specialty Start Date End Date Anna Mendez GRADUATE INTERN.BAND AID MACHINE OPERATOR [address] [address] PCP - General 06/16/22 07/29/23 Thomas Alas MD [address] [place] [address] PCP - General Family Medicine 07/30/23 Antelmo Davey MD [address] [place] [address] 09/25/19 [place] [address] [place] [address] Consulting General Surgery 09/25/19 Shanna June CNP [address] [place] [address] Referring Family Medicine 10/19/19 Tj Najera PA [address] [place] [address] Referring Family Medicine 05/13/22 Georgina Barkley MD [address] [place] [address] Home Parenteral Nutrition Provider Gastroenterology 10/14/23 documented as of this encounter
--- OUTSIDE RECORDS SUMMARY | 2024-09-15 16:44 | XMS_ITS | Encounter Summary ---
Author Organization [facility] Address [address] [place] [address] Care Team Providers Care Wait Staff Name Role Phone Antelmo Davey MD Unavailable [phone] Deacon Valladares MD Unavailable [phone] Shanna June [facility] Unavailable [phone] Tj Najera Unavailable [phone] Anna Mendez APRN.[facility] Primary Care Provider Thomas Alas MD Primary Care Provider [phone] Georgina Barkley MD Unavailable [phone] Source Comments In the event this information is protected by the Federal Confidentiality of Alcohol and Drug AbusePatient Records regulations: The Federal rules restrict any use of the information to criminally investigate or prosecute any alcohol or drug abuse patient.[facility] Encounter Details Date Type Department Care Team (Late st Contact Info) Description 05/17/2023 Get Medical Advice General Surgery [address] [place], [place] [phone] [place] [address] [place] [address] Abbey Garcia imaging records from [employer] Social History Tobacco Use Types Packs/Day Years Used Date Smoking Tobacco: Never Smokeless Tobacco: Never Alcohol Use Standard Drinks/Week Comments Not Currently 0 (1 standard drink = 0.6 oz pur e alcohol) [facility] Utilities Answer Date Recorded In the [...] often do you attend chur ch or samaritan services? 1 to 4 times per year 10/28/2022 Do you belong to any clubs o r organizations such as cheondoism groups, unions, fraternal or athletic groups, or [...] Answer Date Recorded PHQ-2 score 2 11/12/2022 [facility] - [...] slept in a correction (including now)? No 05/21/2023 Area Deprivation Index Answer Date Nayan rded National Score (1-100), lower number is lower ri sk 64 06/17/2022 State Score (1-10), lower number is lower risk 4 06/17/2022 Data from: https://www.neighborhoodatlas.medicine.[facility].edu/. Last address used for calculation [address] 06/17/2022 Education Answer Date Recorded What is the highest level of school you have completed or the highest degree you have received? Master's degree (e.g., MA, MS, Birgit, MEd, NURSING CLINICAL DIRECTOR, IVANIA) 10/15/2019 Comments No Sex and [...] Assessment Author No 12/09/2022 3:49 PM Sharron Helms RN * Are you blind or do you have serious difficulty seeing, even when wearing glasses? Answer Date of Assessment Author No 12/09/2022 3:49 PM Sharron Helms RN * Do you have serious difficulty walking or climbing stairs? Answer Date of Assessment Author No 12/09/2022 3:49 PM Sharron Helms RN * Do you have difficulty dressing [...] Entry Date Author No 12/09/2022 3:49 PM Sharron Helms RN documented in this encounter Plan of Treatment Upcoming Encounters Date Type Department Care Team (Latest Contact Info) Description 09/18/2024 12:30 PM EDT [facility] Center Hematology/Oncology [address] [place] [address] [place] [address] Hodges dressing and cap change;Labs as needed per patient 09/22/2024 12:30 PM EDT Office Visit Gastroenterology [address] [phone] Propellant Charge Zone Assembler, Grupo [address] [place] [address] HPaSnchez / PAGE [id number] 09/22/2024 1:00 PM EDT Office Visit Gastroenterology [address] [phone] Georgina [facility]ley MD [facility] [address] [phone] HPN / PAGE [id number] 09/25/2024 9:00 AM EDT Infusion Center Hematology/Oncology [address] [place] [address] [place] [address] Hodges dressing and cap change;Labs as needed per patient 09/29/2024 10:15 AM EDT Appointment [facility] Endoscopy - ENDO [address] [place] [address] [place] [address] [place] [address] EGD 10/02/2024 9:00 AM EDT Infusion Center Hematology/Oncology [address] [place] [address] [place] [address] Hodges dressing and cap change;Labs as needed per patient 10/09/2024 9:00 AM EDT Infusion Center Hematology/Oncology [address] [place] [address] [place] [address] Hodges dressing and cap change;Labs as needed per patient documented as of this encounter Visit Diagnoses Not on filedocumented in this encounter Additional Health Concerns Infection Onset Date Last Indicated Resolved Time COVID-19 Rule-Out 06/06/2023 06/06/2023 06/06/2023 6:19 PM EDT documented as of this encounter Care Teams Wait Staff Relationship Specialty Start Date End Date Anna Mendez APRN.STOVE REFINISHER [address] [address] PCP - General 06/16/22 07/29/23 Thomas Alas MD [address] [place] [address] PCP - General Family Medicine 07/30/23 Antelmo Davey MD [address] [place] [address] 09/25/19 [place] [address] [place] [address] Consulting General Surgery 09/25/19 Shanna June CNP [address] [place] [address] Referring Family Medicine 10/19/19 Tj Najera PA [address] [address] Referring Family Medicine 05/13/22 Georgina Barkley MD [address] [place] [address] Home Parenteral Nutrition Provider Gastroenterology 10/14/23 documented as of this encounter
--- OUTSIDE RECORDS SUMMARY | 2024-09-15 16:44 | XMS_ITS | Encounter Summary ---
Author Organization [facility] Address [address] [place] [address] Care Team Providers Care Marketing Pr Intern Name Role Phone Antelmo Davey MD Unavailable Deacon Valladares MD Unavailable Shanna June [facility] Unavailable [phone] Tj Najera Unavailable [phone] Anna Mendez APRN.[facility] Primary Care Provider Thomas Alas MD Primary Care Provider [phone] Georgina Barkley MD Unavailable [phone] Source Comments In the event this information is protected by the Federal Confidentiality of Alcohol and Drug AbusePatient Records regulations: The Federal rules restrict any use of the information to criminally investigate or prosecute any alcohol or drug abuse patient.[facility] Encounter Details Date Type Department Care Team (Late st Contact Info) Description 05/07/2023 GI Preprocedure Call Ambulatory Surgery [address] [place], [place] [id number] Vladimir Benedict Jr., MD [address] [place] [address], [place] [address] Social History Tobacco Use Types Packs/Day Years [...] How often do you attend chur or church services? 1 to 4 times [...] Date Recorded PHQ-2 score 2 11/12/2022 [facility] [place] of Occupat ional Health - Occupational Stress [...] risk 4 06/17/2022 Data from: https://www.neighborhoodatlas.medicine.[facility].edu/. Last address used for calculation [address] [place] [address] [address] 06/17/2022 Education Answer Date Recorded What is the highest level of school you have completed or the highest degree you have received? Master's degree (e.g., MA, MS, Birgit, MEd, PHYSICIAN REPRESENTATIVE, IVANIA) 10/15/2019 Comments No Sex and Gender [...] 09/18/2024 12:30 PM EDT Infusion Center Hematology/Oncology [address] [place] [address] [place] [address] Hodges dressing and cap change;Labs as needed per patient 09/22/2024 12:30 PM EDT Office Visit Gastroenterology [address] [place] [address] Digital Librarian, Hpn [address] [place] [id number] HPN / PAGE [id number] 09/22/2024 1:00 PM EDT Office Visit Gastroenterology [address] [place] [address] Georgina Barkley MD [facility] [address] [place] [address] HPN / PAGE [id number] 09/25/2024 9:00 AM EDT Infusion Center Hematology/Oncology [address] [place] [address] [place] [address] Hodges dressing and cap change;Labs as needed per patient 09/29/2024 10:15 AM EDT Appointment [facility] Endoscopy - ENDO [address] [place] [address] [place] [address] [place] [address] EGD 10/02/2024 9:00 AM EDT Infusion Center Hematology/Oncology [address] [place] [address] [place] [address] Hodges dressing and cap change;Labs as needed per patient 10/09/2024 9:00 AM EDT Infusion Center Hematology/Oncology [address] [place] [address] [place] [address] Hodges dressing and cap change;Labs as needed per patient documented as of this encounter Visit Diagnoses Not on filedocumented in this encounter Additional Health Concerns Infection Onset Date Last Indicated Resolved Time COVID-19 Rule-Out 06/06/2023 06/06/2023 06/06/2023 6:19 PM EDT documented as of this encounter Care Teams Marketing Pr Intern Relationship Specialty Start Date End Date Anna Mendez APRN.[employer] [address] [address] PCP - General 06/16/22 07/29/23 Thomas Alas MD [address] [place] [address] PCP - General Family Medicine 07/30/23 Antelmo Davey MD [address] [place] [address] 09/25/19 [place] [address] [place] [address] Consulting General Surgery 09/25/19 Shanna June CNP [address] [place] [address] Referring Family Medicine 10/19/19 Tj Najera PA [address] [facility] [address] [place] [address] Referring Family Medicine 05/13/22 Georgina Barkley MD [address] [place] [address] Home Parenteral Nutrition Provider Gastroenterology 10/14/23 documented as of this encounter
--- OUTSIDE RECORDS SUMMARY | 2024-09-15 16:44 | XMS_ITS | Encounter Summary ---
Author Organization [facility] Address [address] [place] [address] Care Team Providers Care Merchandising Lead Name Role Phone Antelmo Davey MD Unavailable Deacon Valladares MD Unavailable [phone] Shanna June CNP Unavailable [phone] Shanna June CNP Primary Care Provider [phone] Rachel Foley MD Primary Care Provider [phone] Tj Najera Unavailable [phone] Anna Mendez APRN.[facility] Primary Care Provider Thomas Alas MD Primary Care Provider [phone] Georgina Barkley MD Unavailable [phone] Source Comments In the event this information is protected by the Federal Confidentiality of Alcohol and Drug AbusePatient Records regulations: The Federal rules restrict any use of the information to criminally investigate or prosecute any alcohol or drug abuse patient.[facility] Encounter Details Date Type Department Care Team (Late st Contact Info) Description 11/20/2020 Get Medical Advice BMI [facility] REJ [address] [facility] [place] [address] [place] [address] [place], [place] [id number] RE: Upcoming Appointment Question Social History Tobacco [...] on file 01/21/2020 Data from: https://www.neighborhoodatlas.medicine.[facility].edu/. Last address used for calculation Not on file 01/21/2020 Education Answer Date Recorded What is the highest level of school you have completed or the highest degree you have received? Master's degree (e.g., MA, MS, Birgit, MEd, FLIGHT TECHNICIAN, IVANIA) 10/15/2019 Comments No Sex and [...] Contact Info) Description 09/18/2024 12:30 PM EDT [facility] Hematology/Oncology [address] [place] [address] [place] [address] Hodges dressing and cap change;Labs as needed per patient 09/22/2024 12:30 PM EDT Office Visit Gastroenterology [address] [address] Geological Manager, [employer] [address] [place] [address] HPSanchez / PAGE [id number] 09/22/2024 1:00 PM EDT Office Visit Gastroenterology [address] [address] Georgina Barkley MD [facility] [address] [place], [place] [phone] HPN / PAGE [id number] 09/25/2024 9:00 AM EDT Infusion Center Hematology/Oncology [address] [place] [address] [place] [address] Hodges dressing and cap change;Labs as needed per patient 09/29/2024 10:15 AM EDT Appointment [facility] Endoscopy - ENDO [address] [place] [address] [place] [address] [place] [address] EGD 10/02/2024 9:00 AM EDT Infusion Center Hematology/Oncology [address] [place] [address] [place] [address] Hodges dressing and cap change;Labs as needed per patient 10/09/2024 9:00 AM EDT Infusion Center Hematology/Oncology [address] [place] [address] [place] [address] Hodges dressing and cap change;Labs as needed [...] documented as of this encounter Care Teams Merchandising Lead Relationship Specialty Start Date End Date Shanna June CNP [address] [place] [address] PCP - General Family Medicine 01/31/20 01/18/22 Rachel Foley MD [address] [facility] [place] [address] PCP - General Family Medicine 01/19/22 06/15/22 Anna Mendez APRN.GINNER [address] [address] PCP - General 06/16/22 07/29/23 Thomas Alas MD [address] [place] [address] PCP - General Family Medicine 07/30/23 Antelmo Davey MD [address] [place] [address] 09/25/19 [place] [address] [place] [address] Consulting General Surgery 09/25/19 Shanna June, BETH [address] [place] [address] Referring Family Medicine 10/19/19 Tj Najera PA [address] [address] Referring Family Medicine 05/13/22 Georgina Barkley MD [address] [place] [address] Home Parenteral Nutrition Provider Gastroenterology 10/14/23 documented as of this encounter
--- OUTSIDE RECORDS SUMMARY | 2024-09-15 16:44 | XMS_ITS | Patient Health Record ---
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0 g/dL Hematocrit 38.8 36.0-48.0 % Mean Corpuscular Volume 91.3 81.0-99.0 fL Mean Corpuscular Hemoglobin 29.9 26.7-34.0 pg Mean Corpuscular HGB Conc 32.7 29.9-35.2 g/dL Red Cell Distribution Width 13.6 11.0-15.0 % Platelet Count 278 150-450 10 3/uL Mean Platelet Volume 10.0 9.5-13.5 fL Performing Lab: see note ML - [facility] LB PROF 14(COMP METB) Reviewed date:08/28/2024 06:06:36 PM Interpretation: Performing Lab: Notes/Report: [facility] , Sodium 140 136-145 mmol/L Potassium 3.1 3.5-5.1 mmol/L Chloride 106 98-107 mmol/L Carbon Dioxide 17.6 21.0-32.0 mmol/L Anion Gap 19.5 Glucose 85 74-106 mg/dL Blood Urea Nitrogen 9.0 7.0-18.0 mg/dL Creatinine 0.63 0.55-1.02 mg/dL Estimated GFR ( [place] >60 >=60 mL/min/1.73m 2 Estimated GFR (Non- Caroline >60 >=60 mL/min/1.73m 2 BUN Creatinine Ratio 14.3 Calcium 8.4 8.5-10.1 mg/dL Bilirubin Total 0.5 0.2-1.0 mg/dL Aspartate Amino Transferase 23 15-37 U/L Alanine Aminotransferase 13 14-59 U/L Alkaline Phosphatase 130 46-116 U/L Total Protein 6.2 6.4-8.2 g/dL Albumin Level 2.8 3.4-5.0 g/dL Globulin 3.4 Albumin Globulin Ratio 0.8 Performing Lab: see note ML - [facility] LB Blood Culture 2 Reviewed date:09/04/2024 02:45:30 PM Interpretation: Performing Lab: Notes/Report: LEFT WRIST [facility] , Blood Culture 2 See Below For Report Blood Culture 2 NG5D NO GROWTH AT 5 DAYS.^NO GROWTH AT 5 DAYS. Performing Lab: see note - [facility] LB AMYLASE Reviewed date:09/26/2023 10:10:02 AM Interpretation: Performing Lab: Notes/Report: [facility] , Amylase 39 25-115 U/L Performing Lab: see note - [facility] LB CBC AUTO DIFF Reviewed date:09/26/2023 10:10:02 AM Interpretation: Performing Lab: Notes/Report: [facility] , White Blood Count 4.9 4.0-11.0 [...] 3/uL Performing Lab: see note ML - [facility] LIPASE Reviewed date:09/26/2023 10:10:02 AM Interpretation: Performing Lab: Notes/Report: [facility] , Lipase 35.0 16.0-77.0 U/L Performing Lab: see note ML - [facility] LB LIVER PROFILE Reviewed date:09/26/2023 10:10:02 AM Interpretation: Performing Lab: Notes/Report: [facility] , Bilirubin Total 0.4 0.2-1.0 mg/dL Bilirubin Direct 0.1 0.0-0.2 mg/dL Aspartate Amino Transferase 31 15-37 U/L Alanine Aminotransferase 33 14-59 U/L Alkaline Phosphatase 58 46-116 U/L Total Protein 6.5 6.4-8.2 g/dL Albumin Level 3.6 3.4-5.0 g/dL Globulin 2.9 Albumin Globulin Ratio 1.2 Performing Lab: see note ML - [facility] LB PROF CHEM 8 (BAS METB) Reviewed date:09/26/2023 10:10:02 AM Interpretation: Performing Lab: Notes/Report: [facility] , Sodium 139 136-145 mmol/L Potassium 3.1 3.5-5.1 mmol/L Chloride 103 98-107 mmol/L Carbon Dioxide 28.2 21.0-32.0 mmol/L Anion Gap 10.9 Glucose 85 74-106 mg/dL Blood Urea Nitrogen 7.0 7.0-18.0 mg/dL Creatinine 0.80 0.55-1.02 mg/dL Estimated GFR ( [place] >60 >=60 Estimated GFR (Non- Caroline >60 >=60 BUN Creatinine Ratio 8.8 Calcium 8.6 8.5-10.1 mg/dL Performing Lab: see note ML - [facility] LB UA (CLEAN or CATCH) 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 Reviewed date:09/26/2023 10:10:02 AM Interpretation: Performing Lab: Notes/Report: [facility] , Color Urine LT. YELLOW YELLOW Clarity Urine SL CLOUDY CLEAR Specific Winn Urine 1.010 1.005-1.025 pH Urine 7.0 5.0-9.0 Protein Urine NEGATIVE NEG/TRACE mg/dL Glucose Urine UA NEGATIVE NEGATIVE mg/dL Bilirubin Urine NEGATIVE NEGATIVE Ketones Urine NEGATIVE NEGATIVE mg/dL Blood Urine NEGATIVE NEGATIVE Nitrite Urine NEGATIVE NEGATIVE Urobilinogen Urine 0.2 0.2-1.0 EU/dL Leukocyte Esterase Urine NEGATIVE NEGATIVE Urine Microscopic Indicated NO Performing Lab: see note ML - [facility] LB ECG 12 lead Reviewed date:09/27/2023 08:56:29 AM Interpretation: Performing Lab: Notes/Report: Source Facility: [facility]-[address] [place] [address] [place] [address] Electrocardiograph Report Signed Patient: JUAN GARCIA MR#: [id number] : 1990 Acct:[id number] Age/Sex: 33 / F ADM Date: 09/23/23 Loc: ER Attending Dr: Ordering Physician: Leslie Terrazas M.D. 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 Signed By: 09/25/23721 DD/ 35 TD/TT: Screen Handler: [place] [address] Electrocardiograph Report Signed Patient: JUAN GARCIA MR#: [id number] : 1990 Acct:[id number] Age/Sex: 33 / F ADM Date: 09/23/23 Loc: ER Attending Dr: Ordering Physician: Leslie Terrazas M.D. 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 Signed By: 09/25/23721 DD/ 35 TD/TT: Screen Handler: ASIF CERVANTES Reviewed date:09/27/2023 08:56:29 AM Interpretation: Performing Lab: Notes/Report: [facility] , White Blood Count 8.5 4.0-11.0 [...] Performing Lab: see note ML - [facility] LB MAGNESIUM Reviewed date:09/27/2023 08:56:29 AM Interpretation: Performing Lab: Notes/Report: [facility] , Magnesium 1.8 1.8-2.4 mg/dL Performing Lab: see note ML - [facility] LB PHOSPHORUS Reviewed date:09/27/2023 08:56:29 AM Interpretation: Performing Lab: Notes/Report: [facility] , Phosphorus 2.4 2.6-4.7 mg/dL Performing Lab: see note ML - [facility] LB PROF 14(COMP METB) Reviewed date:09/27/2023 08:56:29 AM Interpretation: Performing Lab: Notes/Report: [facility] , Sodium 139 136-145 mmol/L Potassium [...] Performing Lab: see note ML - [facility] LB TRIGLYCERIDE Reviewed date:09/27/2023 08:56:29 AM Interpretation: Performing Lab: Notes/Report: [facility] , Triglycerides 47 <=150 mg/dL Performing Lab: see note - [facility] LB CBC AUTO DIFF Reviewed date:10/24/2023 08:22:27 PM Interpretation: Performing Lab: Notes/Report: [facility] , White Blood Count 5.9 4.0-11.0 [...] Performing Lab: see note ML - [facility] LB CBC AUTO DIFF Reviewed date:10/28/2023 09:28:45 PM Interpretation: Performing Lab: Notes/Report: [facility] , White Blood Count 5.1 4.0-11.0 [...] 3/uL Performing Lab: see note ML - [facility] LB CRP Reviewed date:10/28/2023 09:28:45 PM Interpretation: Performing Lab: Notes/Report: [facility] , C Reactive Protein <0.50 <=0.50 mg/dL Performing Lab: see note ML - [facility] LB FERRITIN Reviewed date:10/28/2023 09:28:45 PM Interpretation: Performing Lab: Notes/Report: [facility] , Ferritin 6.0 8.0-252.0 ng/mL Performing Lab: see note ML - [facility] LB IRON AND TIBC Reviewed date:10/28/2023 09:28:45 PM Interpretation: Performing Lab: Notes/Report: [facility] , Iron 48.0 50.0-170.0 ug/dL Total Iron Binding Capacity 364.0 250.0-450.0 ug/dL Percent Iron Saturation 13.2 Performing Lab: see note ML - [facility] LB MAGNESIUM Reviewed date:10/28/2023 09:28:45 PM Interpretation: Performing Lab: Notes/Report: [facility] , Magnesium 2.1 1.8-2.4 mg/dL Performing Lab: see note ML - [facility] LB PHOSPHORUS Reviewed date:10/28/2023 09:28:45 PM Interpretation: Performing Lab: Notes/Report: [facility] , Phosphorus 2.5 2.6-4.7 mg/dL Performing Lab: see note ML - [facility] LB PROF 14(COMP METB) Reviewed date:10/28/2023 09:28:45 PM Interpretation: Performing Lab: Notes/Report: [facility] , Sodium 136 136-145 mmol/L Potassium 4.2 [...] Globulin Ratio 1.2 Performing Lab: see note [facility] LB VITAMIN D 25 [place] Reviewed date:10/28/2023 09:28:45 PM Interpretation: Performing Lab: Notes/Report: [facility] , Vitamin D 38.2 <20 ng/mL Vit D deficient 20-<30 ng/mL Vit D insufficient 30-100 ng/mL Vit D sufficient >100 ng/mL Potential Toxicity Performing Lab: see note [facility] LB Transferrin Reviewed date:10/31/2023 10:33:37 AM Interpretation: Performing Lab: Notes/Report: [facility] , Transferrin 317 192-364 mg/dL Performed at: [address] [id number] Design Transferrer: Daron Almanza PhD, Phone: [phone] Performing Lab: see note [facility] LB Methylmalonic Acid, Serum Reviewed date:11/01/2023 08:50:20 PM Interpretation: Performing Lab: Notes/Report: [facility] , Methylmalonic Acid, Serum 142 0-378 nmol/L This test was developed and its performance characteristics determined by [facility]. It has not been cleared or approved by the Food and Drug Administration. Performed at: [address] [id number] Design Transferrer: Suhas Ring MD, Phone: [phone] Performing Lab: see note [facility] Vitamin B12 Reviewed date:11/01/2023 08:50:20 PM Interpretation: Performing Lab: Notes/Report: [facility] , Vitamin B12 670 305-1034 pg/mL Performed at: - [facility] [address] [id number] Design Transferrer: Daron Almanza PhD, Phone: [phone] Performing Lab: see note LC - [facility] LB AMYLASE Reviewed date:11/05/2023 12:57:51 PM Interpretation: Performing Lab: Notes/Report: [facility] , Amylase 46 25-115 U/L Performing Lab: see note ML - [facility] LB BNP Reviewed date:11/05/2023 12:57:51 PM Interpretation: Performing Lab: Notes/Report: [facility] , NT Pro B Type Natriuretic Pept 36.0 <=450.0 pg/mL Performing Lab: see note ML - [facility] LB LIPASE Reviewed date:11/05/2023 12:57:52 PM Interpretation: Performing Lab: Notes/Report: [facility] , Lipase 46.0 16.0-77.0 U/L Performing Lab: see note ML - [facility] LB PROF 14(COMP METB) Reviewed date:11/05/2023 12:57:52 PM Interpretation: Performing Lab: Notes/Report: [facility] , Sodium 137 136-145 mmol/L Potassium [...] Performing Lab: see note ML - [facility] LB Troponin I High Sensitivity Reviewed date:11/05/2023 12:57:52 PM Interpretation: Performing Lab: Notes/Report: [facility] , Troponin I High Sensitivity 4.0 4.0-51.3 pg/mL CUT-OFF POINTS HAVE BEEN ESTABLISHED BASED ON THE FOURTH UNIVERSAL DEFINITION OF MYOCARDIAL INFARCTION. THE UPPER REFERENCE LIMIT (URL) OF TROPONIN, DEFINED THE 99TH PERCENTILE OF cTnI DISTRIBUTION IN A REFERENCE POPULATION, HAS BEEN CONFIRMED THE DECISION THRESHOLD FOR [place] DIAGNOSIS. 99TH PERCENTILE = 51.4 PG/ML NOTE: HIGH-SENSITIVITY TROPONIN ASSAY IS NOT INTENDED TO BE USED IN ISOLATION BUT SHOULD BE INTERPRETED IN CONJUNCTION WITH OTHER DIAGNOSTIC AND CLINICAL INFORMATION. Performing Lab: see note ML - [facility] LB AMYLASE Reviewed date:11/07/2023 09:01:52 PM Interpretation: Performing Lab: Notes/Report: [facility] , Amylase 36 25-115 U/L Performing Lab: see note - [facility] CBC AUTO DIFF Reviewed date:11/07/2023 09:01:52 PM Interpretation: Performing Lab: Notes/Report: [facility] , White Blood Count 3.9 4.0-11.0 [...] 3/uL Performing Lab: see note ML - [facility] LB LIPASE Reviewed date:11/07/2023 09:01:52 PM Interpretation: Performing Lab: Notes/Report: [facility] , Lipase 28.0 16.0-77.0 U/L Performing Lab: see note ML - [facility] LB LIVER PROFILE Reviewed date:11/07/2023 09:01:52 PM Interpretation: Performing Lab: Notes/Report: [facility] , Bilirubin Total 0.4 0.2-1.0 mg/dL Bilirubin Direct 0.1 0.0-0.2 mg/dL Aspartate Amino Transferase 27 15-37 U/L Alanine Aminotransferase 23 14-59 U/L Alkaline Phosphatase 64 46-116 U/L Total Protein 6.4 6.4-8.2 g/dL Albumin Level 3.6 3.4-5.0 g/dL Globulin 2.8 Albumin Globulin Ratio 1.3 Performing Lab: see note ML - [facility] LB PROF CHEM 8 (BAS METB) Reviewed date:11/07/2023 09:01:52 PM Interpretation: Performing Lab: Notes/Report: [facility] , Sodium 134 136-145 mmol/L Potassium 3.5 3.5-5.1 mmol/L Chloride 101 98-107 mmol/L Carbon Dioxide 28.9 21.0-32.0 mmol/L Anion Gap 7.6 Glucose 97 74-106 mg/dL Blood Urea Nitrogen 9.0 7.0-18.0 mg/dL Creatinine 0.81 0.55-1.02 mg/dL Estimated GFR ( [place] >60 >=60 Estimated GFR (Non- [place] >60 >=60 BUN Creatinine Ratio 11.1 Calcium 8.2 8.5-10.1 mg/dL Performing Lab: see note ML - [facility] LB Anaerobic Culture Reviewed date:11/11/2023 03:26:07 PM Interpretation: Performing Lab: Notes/Report: [facility] , Anaerobic Culture See Below For Report Anaerobic Culture Anaerobic Culture No anaerobic growth in 72 hours. Anaerobic Culture Performing Lab: see note LC - [facility] LB UA (CLEAN or CATCH) 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 Reviewed date:11/20/2023 08:26:20 PM Interpretation: Performing Lab: Notes/Report: [facility] , Color Urine YELLOW YELLOW Clarity Urine CLEAR CLEAR Specific [place] Urine 1.015 1.005-1.025 pH Urine 7.0 5.0-9.0 Protein Urine NEGATIVE NEG/TRACE mg/dL Glucose Urine UA NEGATIVE NEGATIVE mg/dL Bilirubin Urine NEGATIVE NEGATIVE Ketones Urine NEGATIVE NEGATIVE mg/dL Blood Urine NEGATIVE NEGATIVE Nitrite Urine NEGATIVE NEGATIVE Urobilinogen Urine 0.2 0.2-1.0 EU/dL Leukocyte Esterase Urine NEGATIVE NEGATIVE Urine Microscopic Indicated NO Performing Lab: see note ML - [facility] LB CBC AUTO DIFF Reviewed date:11/25/2023 07:16:42 PM Interpretation: Performing Lab: Notes/Report: [facility] , White Blood Count 5.5 4.0-11.0 [...] Performing Lab: see note ML - [facility] LB FREE T3 Reviewed date:11/25/2023 07:16:42 PM Interpretation: Performing Lab: Notes/Report: [facility] , Free T3 2.07 2.18-3.98 pg/mL Performing Lab: see note ML - [facility] LB MAGNESIUM Reviewed date:11/25/2023 07:16:42 PM Interpretation: Performing Lab: Notes/Report: [facility] , Magnesium 1.9 1.8-2.4 mg/dL Performing Lab: see note - [facility] LB PHOSPHORUS Reviewed date:11/25/2023 07:16:42 PM Interpretation: Performing Lab: Notes/Report: [facility] , Phosphorus 2.4 2.6-4.7 mg/dL Performing Lab: see note - [facility] LB PROF 14(COMP METB) Reviewed date:11/25/2023 07:16:42 PM Interpretation: Performing Lab: Notes/Report: [facility] , Sodium 139 136-145 mmol/L Potassium 3.9 [...] Ratio 1.1 Performing Lab: see note - [facility] LB T4 Reviewed date:11/25/2023 07:16:42 PM Interpretation: Performing Lab: Notes/Report: [facility] , T4 Thyroxine 7.60 4.80-13.90 ug/dL Performing Lab: see note - [facility] LB TSH Reviewed date:11/25/2023 07:16:42 PM Interpretation: Performing Lab: Notes/Report: [facility] , Thyroid Stimulating Hormone 1.315 0.358-3.740 uIU/mL Performing Lab: see note - [facility] LB CBC AUTO DIFF Reviewed date:12/22/2023 09:03:29 PM Interpretation: Performing Lab: Notes/Report: [facility] , White Blood Count 4.9 4.0-11.0 10 [...] 10 3/uL Performing Lab: see note - [facility] LB GLYCOHEMOGLOBIN A1C Reviewed date:12/22/2023 09:03:29 PM Interpretation: Performing Lab: Notes/Report: [facility] , Glycohemoglobin A1C 4.8 4.5-6.2 % ADA RECOMMENDED LIMIT 4.0 - 6.0 ADA THERAPEUTIC TARGET < 7.0 ACTION SUGGESTED > 7.0 Estimated Average Glucose 91 Performing Lab: see note [facility] MAGNESIUM Reviewed date:12/22/2023 09:03:29 PM Interpretation: Performing Lab: Notes/Report: [facility] , Magnesium 2.0 1.8-2.4 mg/dL Performing Lab: see note - [facility] LB PHOSPHORUS Reviewed date:12/22/2023 09:03:29 PM Interpretation: Performing Lab: Notes/Report: [facility] , Phosphorus 2.0 2.6-4.7 mg/dL Performing Lab: see note [facility] PROF 14(COMP METB) Reviewed date:12/22/2023 09:03:29 PM Interpretation: Performing Lab: Notes/Report: [facility] , Sodium 142 136-145 mmol/L Potassium [...] Performing Lab: see note ML - [facility] LB MAGNESIUM Reviewed date:01/06/2024 01:36:15 PM Interpretation: Performing Lab: Notes/Report: [facility] , Magnesium 1.7 1.8-2.4 mg/dL Performing Lab: see note ML - [facility] LB PHOSPHORUS Reviewed date:01/06/2024 01:36:15 PM Interpretation: Performing Lab: Notes/Report: [facility] , Phosphorus 3.3 2.6-4.7 mg/dL Performing Lab: see note ML - [facility] LB PROF 14(COMP METB) Reviewed date:01/06/2024 01:36:15 PM Interpretation: Performing Lab: Notes/Report: [facility] , Sodium 140 136-145 mmol/L Potassium 3.6 [...] 1.2 Performing Lab: see note ML - [facility] LB FERRITIN Reviewed date:01/31/2024 02:12:13 PM Interpretation: Performing Lab: Notes/Report: [facility] , Ferritin 98.0 8.0-252.0 ng/mL Performing Lab: see note - [facility] LB IRON AND TIBC Reviewed date:01/31/2024 02:12:13 PM Interpretation: Performing Lab: Notes/Report: [facility] , Iron 101.0 50.0-170.0 ug/dL Total Iron Binding Capacity 257.0 250.0-450.0 ug/dL Percent Iron Saturation 39.3 Performing Lab: see note - [facility] LB Transferrin Reviewed date:02/01/2024 12:16:29 PM Interpretation: Performing Lab: Notes/Report: [facility] , Transferrin 210 192-364 mg/dL Performed at: [facility] [address] [id number] Design Transferrer: Daron Almanza PhD, Phone: [phone] Performing Lab: see note - [facility] LB MAGNESIUM Reviewed date:03/29/2024 09:46:23 PM Interpretation: Performing Lab: Notes/Report: [facility] , Magnesium 1.8 1.8-2.4 mg/dL Performing Lab: see note - [facility] LB PROF 14(COMP METB) Reviewed date:03/29/2024 09:46:23 PM Interpretation: Performing Lab: Notes/Report: [facility] , Sodium 143 136-145 mmol/L Potassium [...] Performing Lab: see note ML - [facility] LB TSH Reviewed date:03/29/2024 09:46:23 PM Interpretation: Performing Lab: Notes/Report: [facility] , Thyroid Stimulating Hormone 0.622 0.358-3.740 uIU/mL Performing Lab: see note ML - [facility] LB CBC AUTO DIFF Reviewed date:03/30/2024 07:56:16 PM Interpretation: Performing Lab: Notes/Report: [facility] , White Blood Count 4.6 4.0-11.0 [...] 3/uL Performing Lab: see note ML - [facility] LB MAGNESIUM Reviewed date:03/30/2024 07:56:16 PM Interpretation: Performing Lab: Notes/Report: [facility] , Magnesium 1.7 1.8-2.4 mg/dL Performing Lab: see note ML - [facility] LB PROF CHEM 8 (BAS METB) Reviewed date:03/30/2024 07:56:16 PM Interpretation: Performing Lab: Notes/Report: [facility] , Sodium 140 136-145 mmol/L Potassium [...] mg/dL Performing Lab: see note ML - [facility] LB AMYLASE Reviewed date:06/21/2024 12:59:38 PM Interpretation: Performing Lab: Notes/Report: [facility] , Amylase 51 25-115 U/L Performing Lab: see note ML - [facility] LB CBC AUTO DIFF Reviewed date:06/21/2024 12:59:38 PM Interpretation: Performing Lab: Notes/Report: [facility] , White Blood Count 5.6 4.0-11.0 [...] 3/uL Performing Lab: see note ML - [facility] LIPASE Reviewed date:06/21/2024 12:59:38 PM Interpretation: Performing Lab: Notes/Report: [facility] , Lipase 78.0 16.0-77.0 U/L Performing Lab: see note - [facility] PROF CHEM 8 (BAS METB) Reviewed date:06/21/2024 12:59:38 PM Interpretation: Performing Lab: Notes/Report: [facility] , Sodium 137 136-145 mmol/L Potassium [...] Performing Lab: see note ML - [facility] LB HCG Qualitative* Reviewed date:06/21/2024 12:59:38 PM Interpretation: Performing Lab: Notes/Report: [facility] , HCG Qualitative NEGATIVE NEGATIVE Performing Lab: see note ML - [facility] LB ECG 12 lead Reviewed date:06/21/2024 08:02:33 PM Interpretation: Performing Lab: Notes/Report: Source Facility: [facility]-[address] [place] [address] [place] [address] Electrocardiograph Report Signed Patient: JUAN GARCIA MR#: [id number] : 1990 Acct:[id number] Age/Sex: 34 / F ADM Date: 06/21/24 Loc: ER Attending Dr: Ordering Physician: Leslie Terrazas M.D. 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 Measurements Intervals [place] Rate: 80 P: 54 PA: 140 QRS: 47 QRSD: 80 T: 46 QT: 384 QTc: 420 Interpretive Statements 1100 Sinus rhythm 9110 normal ECG Compared to ECG 09/23/2023 18:36:37 No significant changes Electronically Signed On 06-21-2024 18:14:03 EDT by JAMES HODGES M.D. Dictated By: JAMES HODGES Signed By: 06/21/24 1814 DD/ 1124 TD/TT: Screen Handler: [place] [address] Electrocardiograph Report Signed Patient: JUAN GARCIA MR#: [id number] : 1990 Acct:[id number] Age/Sex: 34 / F ADM Date: 06/21/24 Loc: ER Attending Dr: Ordering Physician: Leslie Terrazas M.D. 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 Measurements Intervals [place] Rate: 80 P: 54 PA: 140 QRS: 47 QRSD: 80 T: 46 QT: 384 QTc: 420 Interpretive Statements 1100 Sinus rhythm 9110 normal ECG Compared to ECG 09/23/2023 18:36:37 No significant changes Electronically Gemini d On 06-21-2024 18:14:03 EDT by JAMES HODGES M.D. Dictated By: JAMES HODGES Signed By: 06/21/24 1814 DD/ 1124 TD/TT: Screen Handler: CBC AUTO DIFF Reviewed date:07/22/2024 05:16:36 PM Interpretation: Performing Lab: Notes/Report: [facility] , White Blood Count 6.4 4.0-11.0 [...] 3/uL Performing Lab: see note ML - [facility] LB PROF CHEM 8 (BAS METB) Reviewed date:07/22/2024 05:16:36 PM Interpretation: Performing Lab: Notes/Report: [facility] , Sodium 144 136-145 mmol/L Potassium [...] mg/dL Performing Lab: see note ML - [facility] LB CBC AUTO DIFF Reviewed date:08/02/2024 05:29:08 PM Interpretation: Performing Lab: Notes/Report: [facility] , White Blood Count 9.1 4.0-11.0 [...] Performing Lab: see note ML - [facility] LB LACTATE or LACTIC ACID Reviewed date:08/02/2024 05:29:08 PM Interpretation: Performing Lab: Notes/Report: [facility] , Lactate/Lactic Acid 2.2 0.4-2.0 mmol/L RESULT S CALLED TO DR. DAMON Performing Lab: see note ML - [facility] LB LIPASE Reviewed date:08/02/2024 05:29:08 PM Interpretation: Performing Lab: Notes/Report: [facility] , Lipase 66.0 16.0-77.0 U/L Performing Lab: see note ML - [facility] LB PROF 14(COMP METB) Reviewed date:08/02/2024 05:29:08 PM Interpretation: Performing Lab: Notes/Report: [facility] , Sodium 141 136-145 mmol/L Potassium [...] 1.2 Performing Lab: see note ML - [facility] LB Troponin I High Sensitivity Reviewed date:08/02/2024 05:29:08 PM Interpretation: Performing Lab: Notes/Report: [facility] , Troponin I High Sensitivity <4.0 4.0-51.3 pg/mL CUT-OFF POINTS HAVE BEEN ESTABLISHED BASED ON THE FOURTH UNIVERSAL DEFINITION OF MYOCARDIAL INFARCTION. THE UPPER REFERENCE LIMIT (URL) OF TROPONIN, DEFINED THE 99TH PERCENTILE OF cTnI DISTRIBUTION IN A REFERENCE POPULATION, HAS BEEN CONFIRMED THE DECISION THRESHOLD FOR [place] DIAGNOSIS. 99TH PERCENTILE = 51.4 PG/ML NOTE: HIGH-SENSITIVITY TROPONIN ASSAY IS NOT INTENDED TO BE USED IN ISOLATION BUT SHOULD BE INTERPRETED IN CONJUNCTION WITH OTHER DIAGNOSTIC AND CLINICAL INFORMATION. Performing Lab: see note ML - [facility] LB HCG Qualitative Urine Reviewed date:08/02/2024 05:29:08 PM Interpretation: Performing Lab: Notes/Report: [facility] , HCG Qualitative Urine* NEGATIVE NEGATIVE Performing Lab: see note - [facility] LB UA Micro, reflex to culture Reviewed date:08/02/2024 05:29:08 PM Interpretation: Performing Lab: Notes/Report: [facility] , Color Urine LT. YELLOW YELLOW Clarity Urine CLEAR CLEAR Specific Winn Urine <=1.005 1.005-1.025 pH Urine 6.5 5.0-9.0 [...] Performing Lab: see note ML - [facility] LB XR acute abdomen series Reviewed date:08/02/2024 05:29:08 PM Interpretation: Performing Lab: Notes/Report: Source Facility: [facility]-[address] [place] [address] [place] [address] XRay Report Signed Patient: JUAN GARCIA MR#: [id number] : 1990 Acct:[id number] Age/Sex: 34 / F ADM Date: 08/02/24 Loc: ER Attending Dr: Ordering Physician: Massimo Damon Date of Service: 08/02/24 Procedure(s): XR acute abdomen series Accession Number(s): [id number] cc: Britt Alas M.D.; Massimo Damon [place] [address] Patient Name: JUAN GARCIA MRN: [id number] date: 1990 Sex: F Assigned Patient Location: ER Current Patient Location: ER Accession/Order Number: [id number] Exam Date: 08/02/2024 09:12 Report Date: 08/02/2024 09:19 At the request of: MASSIMO ADMON MD Procedure: XR acute abdomen series ACUTE [...] Hutchinson M.D. 08/02/2024 9:19 AM Dictation Location: [place] [address] Electronically authenticated by: [id number] Y Date: 08/02/2024 09:19 Dictated By: Maricruz Hutchinson M.D. Signed By: 08/02/24921 DD/ 8 TD/TT: Screen Handler: [place] [address] XRay Report Signed Patient: JUAN GARCIA MR#: [id number] : 1990 Acct:[id number] Age/Sex: 34 / F ADM Date: 08/02/24 Loc: ER Attending Dr: Ordering Physician: Massimo Damon Date of Service: 08/02/24 Procedure(s): XR acu te abdomen series Accession Number(s): [id number] cc: Britt Alas M.D. ; Massimo Damon [address] [address] Patient Name: JUAN GARCIA MRN: [id number] date: 1990 Sex: F Assigned Patient Location: ER Current Patient Loca tion: ER Accession/Order Numb er: [id number] Exam Date: 08/02/2024 09:12 Report Date: 08/02/2024 [...] Hutchinson M.D. 08/02/2024 9:19 AM Dictation Location: [place] [address] Electronically authenticated by: [id number] Y Date: 08/02/2024 09:19 Dictated By: Maricruz Hutchinson M.D. Signed By: 08/02/24921 DD/ 8 TD/TT: Screen Handler: LIPASE Reviewed date:08/02/2024 05:29:08 PM Interpretation: Performing Lab: Notes/Report: [facility] , Lipase 67.0 16.0-77.0 U/L Performing Lab: see note ML - [facility] LB LACTATE or LACTIC ACID Reviewed date:08/02/2024 05:29:08 PM Interpretation: Performing Lab: Notes/Report: Y [facility] , Lactate/Lactic Acid 1.9 0.4-2.0 mmol/L Performing Lab: see note ML - [facility] LB BLOOD CULTURE ID PANEL Reviewed date:08/16/2024 07:06:02 PM Interpretation: Performing Lab: Notes/Report: [facility] , CTX-M NOT DETECTED NOT DETECTE IMP [...] Enterobacterales DETECTED NOT DETECTE [facility]ULTS [facility] @BY Andie Yepez at 2118 Enterobacter cloacae complex NOT DETECTED NOT DETECTE Escherichia coli NOT DETECTED NOT DETECTE Klebsiella aerogenes NOT DETECTED NOT DETECTE Klebsiella oxytoca NOT DETECTED NOT DETECTE Klebsiella pneumoniae group DETECTED NOT DETECTE RESULTS [facility] @BY Andie Yepez at 2119 Proteus [...] DETECTE Performing Lab: see note ML - [facility] LB CBC AUTO DIFF Reviewed date:08/15/2024 06:53:10 PM Interpretation: Performing Lab: Notes/Report: [facility] , White Blood Count 12.8 4.0-11.0 10 [...] 3/uL Performing Lab: see note ML - [facility] LB LACTATE or LACTIC ACID Reviewed date:08/15/2024 06:53:10 PM Interpretation: Performing Lab: Notes/Report: [facility] , Lactate/Lactic Acid 0.6 0.4-2.0 mmol/L Performing Lab: see note ML - [facility] LB LIPASE Reviewed date:08/15/2024 06:53:11 PM Interpretation: Performing Lab: Notes/Report: [facility] , Lipase 60.0 16.0-77.0 U/L Performing Lab: see note - [facility] LB PROF 14(COMP METB) Reviewed date:08/15/2024 06:53:11 PM Interpretation: Performing Lab: Notes/Report: [facility] , Sodium 137 136-145 mmol/L Potassium [...] Performing Lab: see note ML - [facility] LB UA (CLEAN or CATCH) 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 Reviewed date:08/15/2024 06:53:11 PM Interpretation: Performing Lab: Notes/Report: [facility] , Color Urine LT. YELLOW YELLOW Clarity Urine CLEAR CLEAR Specific Winn Urine 1.010 1.005-1.025 pH Urine 6.0 5.0-9.0 Protein Urine NEGATIVE NEG/TRACE mg/dL Glucose Urine UA NEGATIVE NEGATIVE mg/dL Bilirubin Urine NEGATIVE NEGATIVE Ketones Urine 15 NEGATIVE mg/dL Blood Urine NEGATIVE NEGATIVE Nitrite Urine NEGATIVE NEGATIVE Urobilinogen Urine 0.2 0.2-1.0 EU/dL Leukocyte Esterase Urine NEGATIVE NEGATIVE Urine Microscopic Indicated NO Performing Lab: see note ML - [facility] LB Aerobe ID + Suscept Reviewed date:08/21/2024 08:08:02 PM Interpretation: Performing Lab: Notes/Report: [facility] , Aerobe ID + Suscept See Below For Report Aerobe ID + Suscept WILL FOLLOW O:GNR Isolated O:KLEBPN Isolated Organism: 1.2 Antibiotic Interpretation SANDHYA Status Aerobe ID + Suscept Aerobe ID + Suscept WILL FOLLOW O:GNR Isolated O:KLEBPN Isolated Organism: 1.2 Antibiotic Interpretation SANDHYA Status Aerobe ID + Suscept Specimen has been received and testing has been initiated. Aerobe ID + Suscept WILL FOLLOW O:GNR Isolated O:KLEBPN Isolated Organism: 1.2 Antibiotic Interpretation SANDHYA Status Aerobe ID + Suscept Organism: Gram negat magalis jeffery : Aerobe ID + Suscept WILL FOLLOW O:GNR Isolated O:KLEBPN Isolated Organism: 1.2 Antibiotic Interpretation SANDHYA Status Aerobe ID + Suscept *ABNORMAL* Aerobe ID + Suscept WILL FOLLOW O:GNR Isolated O:KLEBPN Isolated Organism: 1.2 Antibiotic Interpretation SANDHYA Status Aerobe ID + Suscept Received anaerobic b ottle only. Aerobe ID + Suscept WILL FOLLOW O:GNR Isolated O:KLEBPN Isolated Organism: 1.2 Antibiotic Interpretation SANDHYA Status Aerobe ID + Suscept Identification and sensitivities to follow. Aerobe ID + Suscept WILL FOLLOW O:GNR Isolated O:KLEBPN Isolated Organism: 1.2 Antibiotic Interpretation SANDHYA Status Aerobe ID + Suscept Gram negative jeffery Aerobe ID + Suscept WILL FOLLOW O:GNR Isolated O:KLEBPN Isolated Organism: 1.2 Antibiotic Interpretation SANDHYA Status Aerobe ID + Suscept Organism: Klebsiella pneumoniae. : Aerobe ID + Suscept WILL FOLLOW O:GNR Isolated O:KLEBPN Isolated Organism: 1.2 Antibiotic Interpretation SANDHYA Status Aerobe ID + Suscept *ABNORMAL* Aerobe ID + Suscept WILL FOLLOW O:GNR Isolated O:KLEBPN Isolated Organism: 1.2 Antibiotic Interpretation SANDHYA Status Aerobe ID + Suscept Received anaerobic b ottle only. Aerobe ID + Suscept WILL FOLLOW O:GNR Isolated O:KLEBPN Isolated Organism: 1.2 Antibiotic Interpretation SANDHYA Status Aerobe ID + Suscept Klebsiella pneumoniae. Aerobe ID + Suscept WILL FOLLOW O:GNR Isolated O:KLEBPN Isolated Organism: 1.2 Antibiotic Interpretation SANDHYA Status Aerobe ID + Suscept See Below For Report Aerobe ID + Suscept WILL FOLLOW O:GNR Isolated O:KLEBPN Isolated Organism: 1.2 Antibiotic Interpretation SANDHYA Status Aerobe ID + Suscept See Below For Report Aerobe ID + Suscept WILL FOLLOW O:GNR Isolated O:KLEBPN Isolated Organism: 1.2 Antibiotic Interpretation SANDHYA Status Aerobe ID + Suscept See Below For Report Aerobe ID + Suscept WILL FOLLOW O:GNR Isolated O:KLEBPN Isolated Organism: 1.2 Antibiotic Interpretation SANDHYA Status Aerobe ID + Suscept AMOXICILLIN/CLAVULAN IC ACID S F Aerobe ID + Suscept WILL FOLLOW O:GNR Isolated O:KLEBPN Isolated Organism: 1.2 Antibiotic Interpretation SANDHYA Status Aerobe ID + Suscept Ampicillin R F Aerobe ID + Suscept WILL FOLLOW O:GNR Isolated O:KLEBPN Isolated Organism: 1.2 Antibiotic Interpretation SANDHYA Status Aerobe ID + Suscept Cefazolin S F Aerobe ID + Suscept WILL FOLLOW O:GNR Isolated O:KLEBPN Isolated Organism: 1.2 Antibiotic Interpretation SANDHYA Status Aerobe ID + Suscept Cefepime S F Aerobe ID + Suscept WILL FOLLOW O:GNR Isolated O:KLEBPN Isolated Organism: 1.2 Antibiotic Interpretation SANDHYA Status Aerobe ID + Suscept Cefoxitin S F Aerobe ID + Suscept WILL FOLLOW O:GNR Isolated O:KLEBPN Isolated Organism: 1.2 Antibiotic Interpretation SANDHYA Status Aerobe ID + Suscept Cefpodoxime S F Aerobe ID + Suscept WILL FOLLOW O:GNR Isolated O:KLEBPN Isolated Organism: 1.2 Antibiotic Interpretation SANDHYA Status Aerobe ID + Suscept Ceftriaxone S F Aerobe ID + Suscept WILL FOLLOW O:GNR Isolated O:KLEBPN Isolated Organism: 1.2 Antibiotic Interpretation SANDHYA Status Aerobe ID + Suscept Ciprofloxacin S F Aerobe ID + Suscept WILL FOLLOW O:GNR Isolated O:KLEBPN Isolated Organism: 1.2 Antibiotic Interpretation SANDHYA Status Aerobe ID + Suscept Ertapenem S F Aerobe ID + Suscept WILL FOLLOW O:GNR Isolated O:KLEBPN Isolated Organism: 1.2 Antibiotic Interpretation SANDHYA Status Aerobe ID + Suscept Gentamicin S F Aerobe ID + Suscept WILL FOLLOW O:GNR Isolated O:KLEBPN Isolated Organism: 1.2 Antibiotic Interpretation SANDHYA Status Aerobe ID + Suscept Levofloxacin S F Aerobe ID + Suscept WILL FOLLOW O:GNR Isolated O:KLEBPN Isolated Organism: 1.2 Antibiotic Interpretation SANDHYA Status Aerobe ID + Suscept Meropenem S F Aerobe ID + Suscept WILL FOLLOW O:GNR Isolated O:KLEBPN Isolated Organism: 1.2 Antibiotic Interpretation SANDHYA Status Aerobe ID + Suscept Tetracycline S F Aerobe ID + Suscept WILL FOLLOW O:GNR Isolated O:KLEBPN Isolated Organism: 1.2 Antibiotic Interpretation SANDHYA Status Aerobe ID + Suscept Tobramycin S F Aerobe ID + Suscept WILL FOLLOW O:GNR Isolated O:KLEBPN Isolated Organism: 1.2 Antibiotic Interpretation SANDHYA Status Aerobe ID + Suscept Trimethoprim/Sulfame thoxa zole S F Aerobe ID + Suscept WILL FOLLOW O:GNR Isolated O:KLEBPN Isolated Organism: 1.2 Antibiotic Interpretation SANDHYA Status Aerobe ID + Suscept Piperacillin/Tazobac mcmanus S F Aerobe ID + Suscept WILL FOLLOW O:GNR Isolated O:KLEBPN Isolated Organism: 1.2 Antibiotic Interpretation SANDHYA Status Performing Lab: see note - [facility] LB 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 Anaerobe Identification Only Reviewed date:08/21/2024 08:08:02 PM Interpretation: Performing Lab: Notes/Report: [facility] , Anaerobe Identification Only See Below For Report Anaerobe Identification Only Anaerobe Identification Only Specimen has been received and testing has been initiated. Anaerobe Identification Only Anaerobe Identification Only Anaerobe Identification Only Anaerobe Identification Only No anaerobes recovered. Anaerobe Identification Only Anaerobe Identification Only [facility]formed at[facility] Anaerobe Identification Only Anaerobe Identification Only [address] [place] [phone] Anaerobe Identification Only Anaerobe Identification Only Design Transferrer: Daron Almanza PhD, Phone: [phone] Anaerobe Identification Only Performing Lab: see note - [facility] LB 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 ECG 12 lead Reviewed date:08/16/2024 07:06:02 PM Interpretation: Performing Lab: Notes/Report: Source Facility: [place] [address] Electrocardiograph Report Signed Patient: JUAN GARCIA MR#: [id number] : 1990 Acct:[id number] Age/Sex: 34 / F ADM Date: 08/15/24 Loc: ER Attending Dr: Ordering Physician: Domenica Romeo Date of Service: 08/15/24 Procedure(s): ECG 12 lead Accession Number(s): [id number] cc: [facility] Test Date: 2024-08-15 Pat Name: JUAN GARCIA Department: Room: - 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 Measurements Intervals [place] Rate: 82 P: 45 PA: 142 QRS: 75 QRSD: 84 T: 44 QT: 402 QTc: 440 Interpretive Statements 1100 Sinus rhythm 9110 normal ECG Compared to ECG 06/21/2024 11:24:35 No significant changes Electronically Signed On 08-16-2024 6:37:55 EDT by JAMES HODGES M.D. 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 Measurements Intervals [place] Rate: 82 P: 45 PA: 142 QRS: 75 QRSD: 84 T: 44 QT: 402 QTc: 440 Interpretive Statements 1100 Sinus rhythm 9110 normal ECG Compared to ECG 06/21/2024 11:24:35 No significant changes Electronically Gemini d On 08-16-2024 6:37:55 EDT by JAMES HODGES M.D. Dictated By: JAMES HODGES Signed By: 08/16/24 0637 DD/ 1303 TD/TT: Screen Handler: ARABELLA chest 2V Reviewed date:08/15/2024 06:53:11 PM Interpretation: Performing Lab: Notes/Report: Source Facility: [place] [address] [place] [address] XRay Report Signed Patient: JUAN GARCIA MR#: [id number] : 1990 Acct:[id number] Age/Sex: 34 / F ADM Date: 08/15/24 Loc: ER Attending Dr: Ordering Physician: Domenica Romeo Date of Service: 08/15/24 Procedure(s): XR chest 2V Accession Number(s): [id number] cc: Britt Johnson M.D. The [address] [address] Patient Name: JUAN GARCIA MRN: [id number] date: 1990 Sex: F Assigned Patient Location: ER Current Patient Location: ER Accession/Order Number: [id number] Exam Date: 08/15/2024 14:21 Report Date: 08/15/2024 14:22 At the request of: DOMENICA ROMEO SALES ANALYST Procedure: XR chest 2V Chest 2 views CLINICAL HISTORY: cough, septic work up COMPARISON: Chest 08/15/2023 FINDINGS: New right-sided catheter tip within the SVC. Heart is normal in size. Left midlung atelectasis no consolidation pneumothorax pleural effusion or free air. XR/XR chest 2V IMPRESSION: LEFT MIDLUNG ATELECTASIS. NO CONSOLIDATION TO SUGGEST PNEUMONIA. Impression dictated by: Cornel Medel Jr., D.O. 08/15/2024 2:22 PM Dictation Location: [place] [address] Electronically authenticated by: [id number] Y Date: 08/15/2024 14:22 Dictated By: Cornel Medel M.D. Signed By: 08/15/24 1424 DD/ 142 TD/TT: Screen Handler: [place] [address] XRay Report Signed Patient: JUAN GARCIA MR#: [id number] : 1990 Acct:[id number] Age/Sex: 34 / F ADM Date: 08/15/24 Loc: ER Attending Dr: Ordering Physician: Domenica Romeo Date of Service: 08/15/24 Procedure(s): XR chest 2V Accession Number(s): [id number] cc: Britt Johnson M.D. [address] [address] Patient Name: JUAN GARCIA MRN: [facility]:[id number] date: 1990 Sex: F Assigned Patient Location: ER Current Patient Loca tion: ER Accession/Order Numb er: [id number] Exam Date: 08/15/2024 14:21 Report Date: 08/15/2024 14:22 At the request of: DOMENICA ROMEO NP Procedure: XR chest 2V Chest 2 views CLINICAL HISTORY: co ugh, septic work up COMPARISON: Chest 08/15/2023 FINDINGS: New right-sided cath eter tip within the SVC. Heart is normal in size. Left midlung atelectasis no consolidation pneumothorax pleural effusion or free air. X R/XR chest 2V IMPRESSION: LEFT MIDLUNG ATELECT ASIS. NO CONSOLIDATION TO SUGGEST PNEUMONIA. Impression dictated by: Cornel Medel Jr., D.O. 08/15/2024 2:22 PM Dictation Location: [place] [address] Electronically authenticated by: [id number] Y Date: 08/15/2024 14:22 Dictated By: Cornel Medel M.D. Signed By: 08/15/24 1424 DD/ 1422 TD/TT: Screen Handler: Aerobe ID + Suscept Reviewed date:08/19/2024 07:52:14 PM Interpretation: Performing Lab: Notes/Report: [facility] , Aerobe ID + Suscept See Below For Report Aerobe ID + Suscept O:GNR Isolated O:KLEBPN Isolated Organism: 1.2 Antibiotic Interpretation SANDHYA Status Aerobe ID + Suscept Specimen has been received and testing has been initiated. Aerobe ID + Suscept O:GNR Isolated O:KLEBPN Isolated Organism: 1.2 Antibiotic Interpretation SANDHYA Status Aerobe ID + Suscept Organism: Gram negat magalis jeffery : Aerobe ID + Suscept O:GNR Isolated O:KLEBPN Isolated Organism: 1.2 Antibiotic Interpretation SANDHYA Status Aerobe ID + Suscept *ABNORMAL* Aerobe ID + Suscept O:GNR Isolated O:KLEBPN Isolated Organism: 1.2 Antibiotic Interpretation SANDHYA Status Aerobe ID + Suscept Received aerobic bot tle only. Aerobe ID + Suscept O:GNR Isolated O:KLEBPN Isolated Organism: 1.2 Antibiotic Interpretation SANDHYA Status Aerobe ID + Suscept Identification and sensitivities to follow. Aerobe ID + Suscept O:GNR Isolated O:KLEBPN Isolated Organism: 1.2 Antibiotic Interpretation SANDHYA Status Aerobe ID + Suscept Gram negative jeffery Aerobe ID + Suscept O:GNR Isolated O:KLEBPN Isolated Organism: 1.2 Antibiotic Interpretation SANDHYA Status Aerobe ID + Suscept Organism: Klebsiella pneumoniae. : Aerobe ID + Suscept O:GNR Isolated O:KLEBPN Isolated Organism: 1.2 Antibiotic Interpretation SANDHYA Status Aerobe ID + Suscept *ABNORMAL* Aerobe ID + Suscept O:GNR Isolated O:KLEBPN Isolated Organism: 1.2 Antibiotic Interpretation SANDHYA Status Aerobe ID + Suscept Received aerobic bot tle only. Aerobe ID + Suscept O:GNR Isolated O:KLEBPN Isolated Organism: 1.2 Antibiotic Interpretation SANDHYA Status Aerobe ID + Suscept Klebsiella pneumoniae. Aerobe ID + Suscept O:GNR Isolated O:KLEBPN Isolated Organism: 1.2 Antibiotic Interpretation SANDHYA Status Aerobe ID + Suscept See Below For Report Aerobe ID + Suscept O:GNR Isolated O:KLEBPN Isolated Organism: 1.2 Antibiotic Interpretation SANDHYA Status Aerobe ID + Suscept See Below For Report Aerobe ID + Suscept O:GNR Isolated O:KLEBPN Isolated Organism: 1.2 Antibiotic Interpretation SANDHYA Status Aerobe ID + Suscept Performed at: [facility] Aerobe ID + Suscept O:GNR Isolated O:KLEBPN Isolated Organism: 1.2 Antibiotic Interpretation SANDHYA Status Aerobe ID + Suscept [id number] [place], [place] [id number] Aerobe ID + Suscept O:GNR Isolated O:KLEBPN Isolated Organism: 1.2 Antibiotic Interpretation SANDHYA Status Aerobe ID + Suscept Design Transferrer: Thierno Almanza PhD, Phone: [phone] Aerobe ID + Suscept O:GNR Isolated O:KLEBPN Isolated Organism: 1.2 Antibiotic Interpretation SANDHYA Status Aerobe ID + Suscept See Below For Report Aerobe ID + Suscept O:GNR Isolated O:KLEBPN Isolated Organism: 1.2 Antibiotic Interpretation SANDHYA Status Aerobe ID + Suscept AMOXICILLIN/CLAVULAN IC ACID S F Aerobe ID + Suscept O:GNR Isolated O:KLEBPN Isolated Organism: 1.2 Antibiotic Interpretation SANDHYA Status Aerobe ID + Suscept Ampicillin R F Aerobe ID + Suscept O:GNR Isolated O:KLEBPN Isolated Organism: 1.2 Antibiotic Interpretation SANDHYA Status Aerobe ID + Suscept Cefazolin S F Aerobe ID + Suscept O:GNR Isolated O:KLEBPN Isolated Organism: 1.2 Antibiotic Interpretation SANDHYA Status Aerobe ID + Suscept Cefepime S F Aerobe ID + Suscept O:GNR Isolated O:KLEBPN Isolated Organism: 1.2 Antibiotic Interpretation SANDHYA Status Aerobe ID + Suscept Cefoxitin S F Aerobe ID + Suscept O:GNR Isolated O:KLEBPN Isolated Organism: 1.2 Antibiotic Interpretation SANDHYA Status Aerobe ID + Suscept Cefpodoxime S F Aerobe ID + Suscept O:GNR Isolated O:KLEBPN Isolated Organism: 1.2 Antibiotic Interpretation SANDHYA Status Aerobe ID + Suscept Ceftriaxone S F Aerobe ID + Suscept O:GNR Isolated O:KLEBPN Isolated Organism: 1.2 Antibiotic Interpretation SANDHYA Status Aerobe ID + Suscept Ciprofloxacin S F Aerobe ID + Suscept O:GNR Isolated O:KLEBPN Isolated Organism: 1.2 Antibiotic Interpretation SANDHYA Status Aerobe ID + Suscept Ertapenem S F Aerobe ID + Suscept O:GNR Isolated O:KLEBPN Isolated Organism: 1.2 Antibiotic Interpretation SANDHYA Status Aerobe ID + Suscept Gentamicin S F Aerobe ID + Suscept O:GNR Isolated O:KLEBPN Isolated Organism: 1.2 Antibiotic Interpretation SANDHYA Status Aerobe ID + Suscept Levofloxacin S F Aerobe ID + Suscept O:GNR Isolated O:KLEBPN Isolated Organism: 1.2 Antibiotic Interpretation SANDHYA Status Aerobe ID + Suscept Meropenem S F Aerobe ID + Suscept O:GNR Isolated O:KLEBPN Isolated Organism: 1.2 Antibiotic Interpretation SANDHYA Status Aerobe ID + Suscept Tetracycline S F Aerobe ID + Suscept O:GNR Isolated O:KLEBPN Isolated Organism: 1.2 Antibiotic Interpretation SANDHYA Status Aerobe ID + Suscept Tobramycin S F Aerobe ID + Suscept O:GNR Isolated O:KLEBPN Isolated Organism: 1.2 Antibiotic Interpretation SANDHYA Status Aerobe ID + Suscept Trimethoprim/Sulfame thoxa zole S F Aerobe ID + Suscept O:GNR Isolated O:KLEBPN Isolated Organism: 1.2 Antibiotic Interpretation SANDHYA Status Aerobe ID + Suscept Piperacillin/Tazobac mcmanus S F Aerobe ID + Suscept O:GNR Isolated O:KLEBPN Isolated Organism: 1.2 Antibiotic Interpretation SANDHYA Status Performing Lab: see note LC - [facility] LB 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 Aerobe ID + Suscept Reviewed date:08/19/2024 07:52:14 PM Interpretation: Performing Lab: Notes/Report: [facility] , Aerobe ID + Suscept See Below For Report Aerobe ID + Suscept O:GNR Isolated O:KLEBPN Isolated Organism: 1.2 Antibiotic Interpretation SANDHYA Status Aerobe ID + Suscept Specimen has been received and testing has been initiated. Aerobe ID + Suscept O:GNR Isolated O:KLEBPN Isolated Organism: 1.2 Antibiotic Interpretation SANDHYA Status Aerobe ID + Suscept Organism: Gram negat magalis jeffery : Aerobe ID + Suscept O:GNR Isolated O:KLEBPN Isolated Organism: 1.2 Antibiotic Interpretation SANDHYA Status Aerobe ID + Suscept *ABNORMAL* Aerobe ID + Suscept O:GNR Isolated O:KLEBPN Isolated Organism: 1.2 Antibiotic Interpretation SANDHYA Status Aerobe ID + Suscept Received pediatric b ottle only. Aerobe ID + Suscept O:GNR Isolated O:KLEBPN Isolated Organism: 1.2 Antibiotic Interpretation SANDHYA Status Aerobe ID + Suscept Identification and sensitivities to follow. Aerobe ID + Suscept O:GNR Isolated O:KLEBPN Isolated Organism: 1.2 Antibiotic Interpretation SANDHYA Status Aerobe ID + Suscept Gram negative jeffery Aerobe ID + Suscept O:GNR Isolated O:KLEBPN Isolated Organism: 1.2 Antibiotic Interpretation SANDHYA Status Aerobe ID + Suscept Organism: Klebsiella pneumoniae. : Aerobe ID + Suscept O:GNR Isolated O:KLEBPN Isolated Organism: 1.2 Antibiotic Interpretation SANDHYA Status Aerobe ID + Suscept *ABNORMAL* Aerobe ID + Suscept O:GNR Isolated O:KLEBPN Isolated Organism: 1.2 Antibiotic Interpretation SANDHYA Status Aerobe ID + Suscept Received pediatric b ottle only. Aerobe ID + Suscept O:GNR Isolated O:KLEBPN Isolated Organism: 1.2 Antibiotic Interpretation SANDHYA Status Aerobe ID + Suscept Klebsiella pneumoniae. Aerobe ID + Suscept O:GNR Isolated O:KLEBPN Isolated Organism: 1.2 Antibiotic Interpretation SANDHYA Status Aerobe ID + Suscept See Below For Report Aerobe ID + Suscept O:GNR Isolated O:KLEBPN Isolated Organism: 1.2 Antibiotic Interpretation SANDHYA Status Aerobe ID + Suscept See Below For Report Aerobe ID + Suscept O:GNR Isolated O:KLEBPN Isolated Organism: 1.2 Antibiotic Interpretation SANDHYA Status Aerobe ID + Suscept [facility] + Suscept O:GNR Isolated O:KLEBPN Isolated Organism: 1.2 Antibiotic Interpretation SANDHYA Status Aerobe ID + Suscept [id number], [place] [id number] Aerobe ID + Suscept O:GNR Isolated O:KLEBPN Isolated Organism: 1.2 Antibiotic Interpretation SANDHYA Status Aerobe ID + Suscept Design Transferrer: Thierno Almanza PhD, Phone: [phone] Aerobe ID + Suscept O:GNR Isolated O:KLEBPN Isolated Organism: 1.2 Antibiotic Interpretation SANDHYA Status Aerobe ID + Suscept See Below For Report Aerobe ID + Suscept O:GNR Isolated O:KLEBPN Isolated Organism: 1.2 Antibiotic Interpretation SANDHYA Status Aerobe ID + Suscept AMOXICILLIN/CLAVULAN IC ACID S F Aerobe ID + Suscept O:GNR Isolated O:KLEBPN Isolated Organism: 1.2 Antibiotic Interpretation SANDHYA Status Aerobe ID + Suscept Ampicillin R F Aerobe ID + Suscept O:GNR Isolated O:KLEBPN Isolated Organism: 1.2 Antibiotic Interpretation SANDHYA Status Aerobe ID + Suscept Cefazolin S F Aerobe ID + Suscept O:GNR Isolated O:KLEBPN Isolated Organism: 1.2 Antibiotic Interpretation SANDHYA Status Aerobe ID + Suscept Cefepime S F Aerobe ID + Suscept O:GNR Isolated O:KLEBPN Isolated Organism: 1.2 Antibiotic Interpretation SANDHYA Status Aerobe ID + Suscept Cefoxitin S F Aerobe ID + Suscept O:GNR Isolated O:KLEBPN Isolated Organism: 1.2 Antibiotic Interpretation SANDHYA Status Aerobe ID + Suscept Cefpodoxime S F Aerobe ID + Suscept O:GNR Isolated O:KLEBPN Isolated Organism: 1.2 Antibiotic Interpretation SANDHYA Status Aerobe ID + Suscept Ceftriaxone S F Aerobe ID + Suscept O:GNR Isolated O:KLEBPN Isolated Organism: 1.2 Antibiotic Interpretation SANDHYA Status Aerobe ID + Suscept Ciprofloxacin S F Aerobe ID + Suscept O:GNR Isolated O:KLEBPN Isolated Organism: 1.2 Antibiotic Interpretation SANDHYA Status Aerobe ID + Suscept Ertapenem S F Aerobe ID + Suscept O:GNR Isolated O:KLEBPN Isolated Organism: 1.2 Antibiotic Interpretation SANDHYA Status Aerobe ID + Suscept Gentamicin S F Aerobe ID + Suscept O:GNR Isolated O:KLEBPN Isolated Organism: 1.2 Antibiotic Interpretation SANDHYA Status Aerobe ID + Suscept Levofloxacin S F Aerobe ID + Suscept O:GNR Isolated O:KLEBPN Isolated Organism: 1.2 Antibiotic Interpretation SANDHYA Status Aerobe ID + Suscept Meropenem S F Aerobe ID + Suscept O:GNR Isolated O:KLEBPN Isolated Organism: 1.2 Antibiotic Interpretation SANDHYA Status Aerobe ID + Suscept Tetracycline S F Aerobe ID + Suscept O:GNR Isolated O:KLEBPN Isolated Organism: 1.2 Antibiotic Interpretation SANDHYA Status Aerobe ID + Suscept Tobramycin S F Aerobe ID + Suscept O:GNR Isolated O:KLEBPN Isolated Organism: 1.2 Antibiotic Interpretation SANDHYA Status Aerobe ID + Suscept Trimethoprim/Sulfame thoxa zole S F Aerobe ID + Suscept O:GNR Isolated O:KLEBPN Isolated Organism: 1.2 Antibiotic Interpretation SANDHYA Status Aerobe ID + Suscept Piperacillin/Tazobac mcmanus S F Aerobe ID + Suscept O:GNR Isolated O:KLEBPN Isolated Organism: 1.2 Antibiotic Interpretation SANDHYA Status Performing Lab: see note LC - [facility] LB 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 CBC AUTO DIFF Reviewed date:08/16/2024 07:06:02 PM Interpretation: Performing Lab: Notes/Report: [facility] , White Blood Count 9.1 4.0-11.0 [...] 3/uL Performing Lab: see note ML - [facility] LB LACTATE or LACTIC ACID Reviewed date:08/16/2024 07:06:02 PM Interpretation: Performing Lab: Notes/Report: [facility] , Lactate/Lactic Acid 0.6 0.4-2.0 mmol/L Performing Lab: see note ML - [facility] LB PROF 14(COMP METB) Reviewed date:08/16/2024 07:06:02 PM Interpretation: Performing Lab: Notes/Report: [facility] , Sodium 138 136-145 mmol/L Potassium 3.3 3.5-5.1 mmol/L Chloride 104 98-107 mmol/L Carbon Dioxide 22.5 21.0-32.0 mmol/L Anion Gap 14.8 Glucose 104 74-106 mg/dL Blood Urea Nitrogen 13.0 7.0-18.0 mg/dL Creatinine 0.47 0.55-1.02 mg/dL Estimated GFR ( [place] >60 [...] Performing Lab: see note ML - [facility] LB Aerobe ID + Suscept Reviewed date:08/21/2024 08:08:02 PM Interpretation: Performing Lab: Notes/Report: [facility] , Aerobe ID + Suscept See Below For Report Aerobe ID + Suscept WILL FOLLOW O:GNR Isolated O:KLEBPN Isolated Organism: 1.2 Antibiotic Interpretation SANDHYA Status Aerobe ID + Suscept Aerobe ID + Suscept WILL FOLLOW O:GNR Isolated O:KLEBPN Isolated Organism: 1.2 Antibiotic Interpretation SANDHYA Status Aerobe ID + Suscept Specimen has been received and testing has been initiated. Aerobe ID + Suscept WILL FOLLOW O:GNR Isolated O:KLEBPN Isolated Organism: 1.2 Antibiotic Interpretation SANDHYA Status Aerobe ID + Suscept Organism: Gram negat magalis jeffery : Aerobe ID + Suscept WILL FOLLOW O:GNR Isolated O:KLEBPN Isolated Organism: 1.2 Antibiotic Interpretation SANDHYA Status Aerobe ID + Suscept *ABNORMAL* Aerobe ID + Suscept WILL FOLLOW O:GNR Isolated O:KLEBPN Isolated Organism: 1.2 Antibiotic Interpretation SANDHYA Status Aerobe ID + Suscept Received anaerobic b ottle only. Aerobe ID + Suscept WILL FOLLOW O:GNR Isolated O:KLEBPN Isolated Organism: 1.2 Antibiotic Interpretation SANDHYA Status Aerobe ID + Suscept Identification and sensitivities to follow. Aerobe ID + Suscept WILL FOLLOW O:GNR Isolated O:KLEBPN Isolated Organism: 1.2 Antibiotic Interpretation SANDHYA Status Aerobe ID + Suscept Gram negative jeffery Aerobe ID + Suscept WILL FOLLOW O:GNR Isolated O:KLEBPN Isolated Organism: 1.2 Antibiotic Interpretation SANDHYA Status Aerobe ID + Suscept Organism: Klebsiella pneumoniae. : Aerobe ID + Suscept WILL FOLLOW O:GNR Isolated O:KLEBPN Isolated Organism: 1.2 Antibiotic Interpretation SANDHYA Status Aerobe ID + Suscept *ABNORMAL* Aerobe ID + Suscept WILL FOLLOW O:GNR Isolated O:KLEBPN Isolated Organism: 1.2 Antibiotic Interpretation SANDHYA Status Aerobe ID + Suscept Received anaerobic b ottle only. Aerobe ID + Suscept WILL FOLLOW O:GNR Isolated O:KLEBPN Isolated Organism: 1.2 Antibiotic Interpretation SANDHYA Status Aerobe ID + Suscept Klebsiella pneumoniae. Aerobe ID + Suscept WILL FOLLOW O:GNR Isolated O:KLEBPN Isolated Organism: 1.2 Antibiotic Interpretation SANDHYA Status Aerobe ID + Suscept See Below For Report Aerobe ID + Suscept WILL FOLLOW O:GNR Isolated O:KLEBPN Isolated Organism: 1.2 Antibiotic Interpretation SANDHYA Status Aerobe ID + Suscept See Below For Report Aerobe ID + Suscept WILL FOLLOW O:GNR Isolated O:KLEBPN Isolated Organism: 1.2 Antibiotic Interpretation SANDHYA Status Aerobe ID + Suscept See Below For Report Aerobe ID + Suscept WILL FOLLOW O:GNR Isolated O:KLEBPN Isolated Organism: 1.2 Antibiotic Interpretation SANDHYA Status Aerobe ID + Suscept AMOXICILLIN/CLAVULAN IC ACID S F Aerobe ID + Suscept WILL FOLLOW O:GNR Isolated O:KLEBPN Isolated Organism: 1.2 Antibiotic Interpretation SANDHYA Status Aerobe ID + Suscept Ampicillin R F Aerobe ID + Suscept WILL FOLLOW O:GNR Isolated O:KLEBPN Isolated Organism: 1.2 Antibiotic Interpretation SANDHYA Status Aerobe ID + Suscept Cefazolin S F Aerobe ID + Suscept WILL FOLLOW O:GNR Isolated O:KLEBPN Isolated Organism: 1.2 Antibiotic Interpretation SANDHYA Status Aerobe ID + Suscept Cefepime S F Aerobe ID + Suscept WILL FOLLOW O:GNR Isolated O:KLEBPN Isolated Organism: 1.2 Antibiotic Interpretation SANDHYA Status Aerobe ID + Suscept Cefoxitin S F Aerobe ID + Suscept WILL FOLLOW O:GNR Isolated O:KLEBPN Isolated Organism: 1.2 Antibiotic Interpretation SANDHYA Status Aerobe ID + Suscept Cefpodoxime S F Aerobe ID + Suscept WILL FOLLOW O:GNR Isolated O:KLEBPN Isolated Organism: 1.2 Antibiotic Interpretation SANDHYA Status Aerobe ID + Suscept Ceftriaxone S F Aerobe ID + Suscept WILL FOLLOW O:GNR Isolated O:KLEBPN Isolated Organism: 1.2 Antibiotic Interpretation SANDHYA Status Aerobe ID + Suscept Ciprofloxacin S F Aerobe ID + Suscept WILL FOLLOW O:GNR Isolated O:KLEBPN Isolated Organism: 1.2 Antibiotic Interpretation SANDHYA Status Aerobe ID + Suscept Ertapenem S F Aerobe ID + Suscept WILL FOLLOW O:GNR Isolated O:KLEBPN Isolated Organism: 1.2 Antibiotic Interpretation SANDHYA Status Aerobe ID + Suscept Gentamicin S F Aerobe ID + Suscept WILL FOLLOW O:GNR Isolated O:KLEBPN Isolated Organism: 1.2 Antibiotic Interpretation SANDHYA Status Aerobe ID + Suscept Levofloxacin S F Aerobe ID + Suscept WILL FOLLOW O:GNR Isolated O:KLEBPN Isolated Organism: 1.2 Antibiotic Interpretation SANDHYA Status Aerobe ID + Suscept Meropenem S F Aerobe ID + Suscept WILL FOLLOW O:GNR Isolated O:KLEBPN Isolated Organism: 1.2 Antibiotic Interpretation SANDHYA Status Aerobe ID + Suscept Tetracycline S F Aerobe ID + Suscept WILL FOLLOW O:GNR Isolated O:KLEBPN Isolated Organism: 1.2 Antibiotic Interpretation SANHDYA Status Aerobe ID + Suscept Tobramycin S F Aerobe ID + Suscept WILL FOLLOW O:GNR Isolated O:KLEBPN Isolated Organism: 1.2 Antibiotic Interpretation SANDHYA Status Aerobe ID + Suscept Trimethoprim/Sulfame thoxa zole S F Aerobe ID + Suscept WILL FOLLOW O:GNR Isolated O:KLEBPN Isolated Organism: 1.2 Antibiotic Interpretation SANDHYA Status Aerobe ID + Suscept Piperacillin/Tazobac mcmanus S F Aerobe ID + Suscept WILL FOLLOW O:GNR Isolated O:KLEBPN Isolated Organism: 1.2 Antibiotic Interpretation SANDHYA Status Performing Lab: see note LC - [facility] LB 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 Aerobe ID + Suscept WILL FOLLOW O:GNR Isolated O:KLEBPN Isolated Organism: 1.2 Antibiotic Interpretation SANDHYA Status Aerobe ID + Suscept Organism: Gram negat magalis jeffery : Aerobe ID + Suscept WILL FOLLOW O:GNR Isolated O:KLEBPN Isolated Organism: 1.2 Antibiotic Interpretation SANDHYA Status Aerobe ID + Suscept *ABNORMAL* Aerobe ID + Suscept WILL FOLLOW O:GNR Isolated O:KLEBPN Isolated Organism: 1.2 Antibiotic Interpretation SANDHYA Status Aerobe ID + Suscept Received anaerobic b ottle only. Aerobe ID + Suscept WILL FOLLOW O:GNR Isolated O:KLEBPN Isolated Organism: 1.2 Antibiotic Interpretation SANDHYA Status Aerobe ID + Suscept Identification and sensitivities to follow. Aerobe ID + Suscept WILL FOLLOW O:GNR Isolated O:KLEBPN Isolated Organism: 1.2 Antibiotic Interpretation SANDHYA Status Aerobe ID + Suscept Gram negative jeffery Aerobe ID + Suscept WILL FOLLOW O:GNR Isolated O:KLEBPN Isolated Organism: 1.2 Antibiotic Interpretation SANDHYA Status Aerobe ID + Suscept Organism: Klebsiella pneumoniae. : Aerobe ID + Suscept WILL FOLLOW O:GNR Isolated O:KLEBPN Isolated Organism: 1.2 Antibiotic Interpretation SANDHYA Status Aerobe ID + Suscept *ABNORMAL* Aerobe ID + Suscept WILL FOLLOW O:GNR Isolated O:KLEBPN Isolated Organism: 1.2 Antibiotic Interpretation SANDHYA Status Aerobe ID + Suscept Received anaerobic b ottle only. Aerobe ID + Suscept WILL FOLLOW O:GNR Isolated O:KLEBPN Isolated Organism: 1.2 Antibiotic Interpretation SANDHYA Status Aerobe ID + Suscept Klebsiella pneumoniae. Aerobe ID + Suscept WILL FOLLOW O:GNR Isolated O:KLEBPN Isolated Organism: 1.2 Antibiotic Interpretation SANDHYA Status Aerobe ID + Suscept See Below For Report Aerobe ID + Suscept WILL FOLLOW O:GNR Isolated O:KLEBPN Isolated Organism: 1.2 Antibiotic Interpretation SANDHYA Status Aerobe ID + Suscept See Below For Report Aerobe ID + Suscept WILL FOLLOW O:GNR Isolated O:KLEBPN Isolated Organism: 1.2 Antibiotic Interpretation SANDHYA Status Aerobe ID + Suscept See Below For Report Aerobe ID + Suscept WILL FOLLOW O:GNR Isolated O:KLEBPN Isolated Organism: 1.2 Antibiotic Interpretation SANDHYA Status Aerobe ID + Suscept AMOXICILLIN/CLAVULAN IC ACID S F Aerobe ID + Suscept WILL FOLLOW O:GNR Isolated O:KLEBPN Isolated Organism: 1.2 Antibiotic Interpretation SANDHYA Status Aerobe ID + Suscept Ampicillin R F Aerobe ID + Suscept WILL FOLLOW O:GNR Isolated O:KLEBPN Isolated Organism: 1.2 Antibiotic Interpretation SANDHYA Status Aerobe ID + Suscept Cefazolin S F Aerobe ID + Suscept WILL FOLLOW O:GNR Isolated O:KLEBPN Isolated Organism: 1.2 Antibiotic Interpretation SANDHYA Status Aerobe ID + Suscept Cefepime S F Aerobe ID + Suscept WILL FOLLOW O:GNR Isolated O:KLEBPN Isolated Organism: 1.2 Antibiotic Interpretation SANDHYA Status Aerobe ID + Suscept Cefoxitin S F Aerobe ID + Suscept WILL FOLLOW O:GNR Isolated O:KLEBPN Isolated Organism: 1.2 Antibiotic Interpretation SANDHYA Status Aerobe ID + Suscept Cefpodoxime S F Aerobe ID + Suscept WILL FOLLOW O:GNR Isolated O:KLEBPN Isolated Organism: 1.2 Antibiotic Interpretation SANDHYA Status Aerobe ID + Suscept Ceftriaxone S F Aerobe ID + Suscept WILL FOLLOW O:GNR Isolated O:KLEBPN Isolated Organism: 1.2 Antibiotic Interpretation SANDHYA Status Aerobe ID + Suscept Ciprofloxacin S F Aerobe ID + Suscept WILL FOLLOW O:GNR Isolated O:KLEBPN Isolated Organism: 1.2 Antibiotic Interpretation SANDHYA Status Aerobe ID + Suscept Ertapenem S F Aerobe ID + Suscept WILL FOLLOW O:GNR Isolated O:KLEBPN Isolated Organism: 1.2 Antibiotic Interpretation SANDHYA Status Aerobe ID + Suscept Gentamicin S F Aerobe ID + Suscept WILL FOLLOW O:GNR Isolated O:KLEBPN Isolated Organism: 1.2 Antibiotic Interpretation SANDHYA Status Aerobe ID + Suscept Levofloxacin S F Aerobe ID + Suscept WILL FOLLOW O:GNR Isolated O:KLEBPN Isolated Organism: 1.2 Antibiotic Interpretation SANDHYA Status Aerobe ID + Suscept Meropenem S F Aerobe ID + Suscept WILL FOLLOW O:GNR Isolated O:KLEBPN Isolated Organism: 1.2 Antibiotic Interpretation SANDHYA Status Aerobe ID + Suscept Tetracycline S F Aerobe ID + Suscept WILL FOLLOW O:GNR Isolated O:KLEBPN Isolated Organism: 1.2 Antibiotic Interpretation SANDHYA Status Aerobe ID + Suscept Tobramycin S F Aerobe ID + Suscept WILL FOLLOW O:GNR Isolated O:KLEBPN Isolated Organism: 1.2 Antibiotic Interpretation SANDHYA Status Aerobe ID + Suscept Trimethoprim/Sulfame thoxa zole S F Aerobe ID + Suscept WILL FOLLOW O:GNR Isolated O:KLEBPN Isolated Organism: 1.2 Antibiotic Interpretation SANDHYA Status Aerobe ID + Suscept Piperacillin/Tazobac mcmanus S F Aerobe ID + Suscept WILL FOLLOW O:GNR Isolated O:KLEBPN Isolated Organism: 1.2 Antibiotic Interpretation SANDHYA Status Performing Lab: see note LC - [facility] LB 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 LIVER PROFILE Reviewed date:06/21/2024 12:59:38 PM Interpretation: Performing Lab: Notes/Report: [facility] , Bilirubin Total 0.6 0.2-1.0 mg/dL Bilirubin Direct 0.2 0.0-0.2 mg/dL Aspartate Amino Transferase 22 15-37 U/L Alanine Aminotransferase 27 14-59 U/L Alkaline Phosphatase 62 46-116 U/L Total Protein 6.7 6.4-8.2 g/dL Albumin Level 3.4 3.4-5.0 g/dL Globulin 3.3 Albumin Globulin Ratio 1.0 Performing Lab: see note ML - [facility] LB CBC AUTO DIFF Reviewed date:03/29/2024 09:46:23 PM Interpretation: Performing Lab: Notes/Report: [facility] , White Blood Count 8.6 4.0-11.0 [...] 10 3/uL Performing Lab: see note - [facility] LB PROF 14(COMP METB) Reviewed date:02/16/2024 03:19:17 PM Interpretation: Performing Lab: Notes/Report: [facility] HE[facility] NURSE [facility] , Sodium 142 136-145 mmol/L Potassium 3.8 [...] 1.2 Performing Lab: see note ML - [facility] LB PHOSPHORUS Reviewed date:02/16/2024 03:19:17 PM Interpretation: Performing Lab: Notes/Report: [facility] HE[facility] NURSE [facility] , Phosphorus 3.3 2.6-4.7 mg/dL Performing Lab: see note - [facility] LB MAGNESIUM Reviewed date:02/16/2024 03:19:17 PM Interpretation: Performing Lab: Notes/Report: [facility] HEALTH NURSE [facility] , Magnesium 1.8 1.8-2.4 mg/dL Performing Lab: see note - [facility] LB CBC AUTO DIFF Reviewed date:02/16/2024 03:19:17 PM Interpretation: Performing Lab: Notes/Report: [facility] , White Blood Count 7.7 4.0-11.0 [...] 10 3/uL Performing Lab: see note - [facility] LB PROF 14(COMP METB) Reviewed date:01/31/2024 02:12:13 PM Interpretation: Performing Lab: Notes/Report: [facility] , Sodium 141 136-145 mmol/L Potassium [...] 1.1 Performing Lab: see note ML - [facility] LB PHOSPHORUS Reviewed date:01/31/2024 02:12:13 PM Interpretation: Performing Lab: Notes/Report: [facility] , Phosphorus 3.7 2.6-4.7 mg/dL Performing Lab: see note ML - [facility] LB MAGNESIUM Reviewed date:01/31/2024 02:12:13 PM Interpretation: Performing Lab: Notes/Report: [facility] , Magnesium 1.6 1.8-2.4 mg/dL Performing Lab: see note ML - [facility] LB CBC AUTO DIFF Reviewed date:01/31/2024 02:12:13 PM Interpretation: Performing Lab: Notes/Report: [facility] , White Blood Count 5.3 4.0-11.0 [...] Performing Lab: see note ML - [facility] LB PROF 14(COMP METB) Reviewed date:01/20/2024 03:46:41 PM Interpretation: Performing Lab: Notes/Report: [facility] , Sodium 143 136-145 mmol/L Potassium [...] 1.3 Performing Lab: see note ML - [facility] LB PHOSPHORUS Reviewed date:01/20/2024 03:46:41 PM Interpretation: Performing Lab: Notes/Report: [place] [employer] , Phosphorus 3.5 2.6-4.7 mg/dL Performing Lab: see note ML - [facility] LB MAGNESIUM Reviewed date:01/20/2024 03:46:41 PM Interpretation: Performing Lab: Notes/Report: [place] [employer] , Magnesium 1.7 1.8-2.4 mg/dL Performing Lab: see note ML - [facility] LB CBC AUTO DIFF Reviewed date:01/20/2024 03:46:41 PM Interpretation: Performing Lab: Notes/Report: [facility] , White Blood Count 5.7 4.0-11.0 [...] Performing Lab: see note ML - [facility] LB XR abdomen 1V Reviewed date:01/17/2024 01:32:20 PM Interpretation: Performing Lab: Notes/Report: Source Facility: [place] [address] XRay Report Signed Patient: JUAN GARCIA MR#: [id number] : 1990 Acct:[id number] Age/Sex: 33 / F ADM Date: 01/17/24 Loc: ER Attending Dr: Ordering Physician: Leslie Terrazas M.D. Date of Service: 01/17/24 Procedure(s): XR abdomen 1V Accession Number(s): [id number] cc: Britt Alas M.D.; Leslie Terrazas M.D. [place] [address] Patient Name: JUAN GARCIA MRN: [id number] date: 1990 Sex: F Assigned Patient Location: ER Current Patient Location: ER Accession/Order Number: [id number] Exam Date: 01/17/2024 12:55 Report Date: 01/17/2024 [...] M.D. Signed By: 01/17/241328 DD/ 25 TD/TT: Screen Handler: [place] [address] XRay Report Signed Patient: JUAN GARCIA MR#: [id number] : 1990 Acct:[id number] Age/Sex: 33 / F ADM Date: 01/17/24 Loc: ER Attending Dr: Ordering Physician: Leslie Terrazas M.D. Date of Service: 01/17/24 Procedure(s): XR abd omen 1V Accession Number(s): [id number] cc: Britt Alas M.D. ; Leslie Terrazas M.D. The [place] [address] Patient Name: JUAN GARCIA MRN: [id number] date: 1990 Sex: F Assigned Patient Location: ER Current Patient Loca tion: ER Accession/Order Numb er: [id number] Exam Date: 12:55 Report Date: 01/17/2024 13:26 [...] M.D. Signed By: 01/17/241328 DD/ 25 TD/TT: Screen Handler: XR acute abdomen series Reviewed date:01/12/2024 05:28:40 PM Interpretation: Performing Lab: Notes/Report: Source Facility: [place] [address] [address] XRay Report Signed Patient: JUAN GARCIA MR#: [id number] : 1990 Acct:[id number] Age/Sex: 33 / F ADM Date: 01/10/24 Loc: LAB Attending Dr: Britt Alas M.D. Ordering Physician: Britt Alas M.D. Date of Service: 01/10/24 Procedure(s): XR acute abdomen series Accession Number(s): [id number] cc: Britt Alas M.D. [place] [address] Patient Name: JUAN GARCIA MRN: [facility]:[id number] date: 1990 Sex: F Assigned Patient Location: LAB Current Patient Location: Accession/Order Number: [id number] Exam Date: 01/10/2024 10:06 Report Date: 01/12/2024 [...] Baca M.D. Signed By: 01/12/24 1448 DD/ 144 TD/TT: Screen Handler: The [address] [address] XRay Report Signed Patient: JUAN GARCIA MR#: [id number] : 1990 Acct:[id number] Age/Sex: 33 / F ADM Date: 01/10/24 Loc: LAB Attending Dr: Ezra Alas M.D. Ordering Physician: Britt Alas M.D. Date of Service: 01/10/24 Procedure(s): XR acu te abdomen series Accession Number(s): [id number] cc: Britt Alas M.D. [place] [address] Patient Name: JUAN GARCIA MRN: [id number] date: 1990 Sex: F Assigned Patient Location: LAB Current Patient Location: Accession/Order Numb er: [id number] Exam Date: 10:06 Report Date: 01/12/2024 14:45 [...] Baca M.D. Signed By: 01/12/24 1448 DD/ 1445 TD/TT: Screen Handler: Testosterone Reviewed date:01/11/2024 02:35:19 PM Interpretation: Performing Lab: Notes/Report: [facility] , Testosterone <3 8-60 ng/dL Performed at: - [facility] [address] [id number] Design Transferrer: Daron Almanza PhD, Phone: [phone] Performing Lab: see note - [facility] LB CBC AUTO DIFF Reviewed date:01/06/2024 01:36:15 PM Interpretation: Performing Lab: Notes/Report: [facility] , White Blood Count 5.6 4.0-11.0 [...] 3/uL Performing Lab: see note ML - [facility] LB LAB TESTING Reviewed date:12/31/2023 06:29:26 AM Interpretation: Performing Lab: Notes/Report: [id number] Fatty Acid Profile, Essential [facility] , Miscellaneous Test COMMENT . Test Ordered: [id number] Fatty Acid Profile, Essential Interp, Fatty Acids Profile SP Normal Y8 Reference Range: . Normal fatty acid profile. Results reviewed and interpreted by Doris Odonnell, PhD, [facility] INTERPRETIVE INFORMATION: Fatty Acids Profile, Essential Ser/Plas This test does not screen for disorders of peroxisomal biogenesis/function. This test was developed and its performance characteristics determined by [employer]. It has not been cleared or approved [...] Acid, C18:2w6 3001 nmol/mL Y8 Reference Range: 9211-9775 a-Linolenic Acid, C18:3w3 71 nmol/mL Y8 Reference Range: 20-200 f-l-Hribynhku C20:3w6 198 nmol/mL Y8 Reference Range: 45-340 g-Linolenic Acid, C18:3w6 104 nmol/mL Y8 Reference Range: 10-120 [place] Acid, C20:3w9 27 nmol/mL Y8 Reference Range: 1-35 Myristic Acid, C14:0 123 nmol/mL Y8 Reference Range: 20-520 Nervonic Acid, C24:1w9 116 nmol/mL Y8 Reference Range: 35-145 Oleic Acid, C18:1w9 2918 nmol/mL Y8 Reference Range: 740-3900 Palmitic Acid, C16:0 3079 nmol/mL Y8 Reference Range: 2076-5139 Palmitoleic Acid, C16:1w7 218 nmol/mL Y8 Reference [...] Range: . Authorized individuals can access the Cloupia Enhanced Report using the following link: [email or web address] . Y8 Reference Range: . Performed at: [employer] [address] [id number] Design Transferrer: Kirt Murphy [facility], Phone: [phone] Performed at: [address] [id number] Design Transferrer: Daron Almanza PhD, Phone: [phone] Performing Lab: see note [facility] Testosterone,Free and Total Reviewed date:12/23/2023 07:44:34 PM Interpretation: Performing Lab: Notes/Report: [facility] DROP [facility] , Testosterone <3 8-60 ng/dL Free Testosterone(Direct) <0.2 0.0-4.2 pg/mL Performed at: [address] [id number] Design Transferrer: Daron Almanza PhD, Phone: [phone] Performed at: [facility] [address] [id number] Design Transferrer: Suhas Ring MD, Phone: [phone] Performing Lab: see note [facility] LB Estradiol Reviewed date:11/26/2023 12:56:46 PM Interpretation: Performing Lab: Notes/Report: [facility] , Estradiol 170.0 . pg/mL Adult Female Range Follicular phase 12.5 - 166.0 Ovulation phase 85.8 - 498.0 Luteal phase 43.8 - 211.0 Postmenopausal <6.0 - 54.7 1st trimester 215.0 - >4300.0 Kamran ECLIA methodology Performing Lab: see note - [facility] LB FSH Reviewed date:11/26/2023 12:56:46 PM Interpretation: Performing Lab: Notes/Report: [facility] , FSH 3.4 . mIU/mL Adult Female Range Follicular phase 3.5 - 12.5 Ovulation phase 4.7 - 21.5 Luteal phase 1.7 - 7.7 Postmenopausal 25.8 - 134.8 Performing Lab: see note - [facility] LB Progesterone Reviewed date:11/26/2023 12:56:46 PM Interpretation: Performing Lab: Notes/Report: [facility] , Progesterone <0.1 . ng/mL Follicular phase 0.1 - 0.9 Luteal phase 1.8 - 23.9 Ovulation phase 0.1 - 12.0 First trimester 11.0 - 44.3 Second trimester 25.4 - 83.3 Third trimester 58.7 - 214.0 Postmenopausal 0.0 - 0.1 Performed at: [address] [id number] Design Transferrer: Daron Almanza PhD, Phone: [phone] Performing Lab: see note - [facility] LB Testosterone Reviewed date:11/26/2023 12:56:46 PM Interpretation: Performing Lab: Notes/Report: [facility] , Testosterone <3 8-60 ng/dL Performing Lab: see note - [facility] LB PROLACTIN Reviewed date:11/26/2023 12:56:46 PM Interpretation: Performing Lab: Notes/Report: [facility] , Prolactin 8.4 4.8-33.4 ng/mL Performing Lab: see note - [facility] LB [...] Tobramycin S F Aerobic Culture [facility] Organism: Gram negative jeffery : O:GNR Isolated O:PSAV Isolated Organism: 2.2 Antibiotic Interpretation SANDHYA Status Amikacin Amikacin S F Cefepime Cefepime S F Ceftazidime Ceftazidime S F Gentamicin Gentamicin S F Imipenem Imipenem I F Levofloxacin Levofloxacin R F Meropenem Meropenem S F Piperacillin Piperacillin S F Ticarcillin Ticarcillin S F Tobramycin Tobramycin S F Aerobic Culture [address], [place] [id number] Aerobic Culture Organism: Gram negative jeffery : O:GNR Isolated O:PSAV Isolated Organism: 2.2 Antibiotic Interpretation SANDHYA Status Amikacin Amikacin S F Cefepime Cefepime S F Ceftazidime Ceftazidime S F Gentamicin Gentamicin S F Imipenem Imipenem I F Levofloxacin Levofloxacin R F Meropenem Meropenem S F Piperacillin Piperacillin S F Ticarcillin Ticarcillin S F Tobramycin Tobramycin S F Aerobic Culture Design Transferrer: Thierno Almanza PhD, Phone: [phone] Aerobic Culture Organism: Gram negative jeffery : [...] LC - [facility] LB 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 Anaerobic Culture Reviewed date:11/25/2023 07:16:42 PM Interpretation: Performing Lab: Notes/Report: [facility] , Anaerobic Culture See Below For Report Anaerobic Culture Anaerobic Culture No anaerobic growth in 72 hours. Anaerobic Culture Performing Lab: see note - [facility] LB Aerobic Culture Reviewed date:11/24/2023 08:11:28 PM [...] Interpretation SANDHYA Status Aerobic Culture Performed at: [facility] Aerobic Culture Organism: Gram negative jeffery : O:GNR Isolated O:PSAV Isolated Organism: 1.2 Antibiotic Interpretation SANDHYA Status Aerobic Culture [address], [place] [id number] Aerobic Culture Organism: Gram negative jeffery : O:GNR Isolated O:PSAV Isolated Organism: 1.2 Antibiotic Interpretation SANDHYA Status Aerobic Culture Design Transferrer: Thierno Almanza PhD, Phone: [phone] Aerobic Culture Organism: Gram negative jeffery : [...] LC - [facility] LB 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 PROF 14(COMP METB) Reviewed date:11/20/2023 08:26:20 PM Interpretation: Performing Lab: Notes/Report: [facility] , Sodium 138 136-145 mmol/L Potassium [...] Performing Lab: see note ML - [facility] LB CBC AUTO DIFF Reviewed date:11/20/2023 08:26:20 PM Interpretation: Performing Lab: Notes/Report: [facility] , White Blood Count 3.7 4.0-11.0 10 [...] 3/uL Performing Lab: see note ML - [facility] LB TRIGLYCERIDE Reviewed date:11/11/2023 03:26:07 PM Interpretation: Performing Lab: Notes/Report: [facility] , Triglycerides 83 <=150 mg/dL Performing Lab: see note - [facility] LB PROF 14(COMP METB) Reviewed date:11/11/2023 03:26:07 PM Interpretation: Performing Lab: Notes/Report: [facility] , Sodium 137 136-145 mmol/L Potassium 4.3 [...] 1.2 Performing Lab: see note ML - [facility] LB PHOSPHORUS Reviewed date:11/11/2023 03:26:07 PM Interpretation: Performing Lab: Notes/Report: [facility] , Phosphorus 2.3 2.6-4.7 mg/dL Performing Lab: see note ML - [facility] LB MAGNESIUM Reviewed date:11/11/2023 03:26:07 PM Interpretation: Performing Lab: Notes/Report: [facility] DR[facility] OFF [facility] , Magnesium 2.1 1.8-2.4 mg/dL Performing Lab: see note ML - [facility] LB CBC AUTO DIFF Reviewed date:11/11/2023 03:26:07 PM Interpretation: Performing Lab: Notes/Report: [facility] , White Blood Count 3.5 4.0-11.0 [...] 3/uL Performing Lab: see note ML - [facility] LB Aerobic Culture Reviewed date:11/11/2023 03:26:07 PM [...] Clindamycin S F Aerobic Culture Performed at: [facility] Aerobic Culture Organism: Staphylococcus aureus : O:GNR [...] Clindamycin Clindamycin S F Aerobic Culture [address], [place] [id number] Aerobic Culture Organism: Staphylococcus aureus : O:GNR [...] F Clindamycin Clindamycin S F Aerobic Culture Design Transferrer: Thierno Almanza PhD, Phone: [phone] Aerobic Culture Organism: Staphylococcus aureus : O:GNR [...] Staphylococcus aureus : O:GNR Isolated O:PSAV Isolated O:[facility] Isolated Organism: 2.2 Antibiotic Interpretation SANDHYA Status [...] LC - [facility] LB 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 CBC AUTO DIFF Reviewed date:11/05/2023 12:57:51 PM Interpretation: Performing Lab: Notes/Report: [facility] , White Blood Count 6.6 4.0-11.0 [...] Performing Lab: see note ML - [facility] LB LAB TESTING Reviewed date:11/10/2023 08:23:17 PM Interpretation: Performing Lab: Notes/Report: [id number] Manganese, Whole Blood [facility] , Miscellaneous Test COMMENT . Test Ordered: [id number] Manganese, Blood Manganese, Blood Comment: ug/L [facility] Reference Range: 8.0-18.7 Manganese, Blood Result: 11 [...] developed and its performance characteristics determined by [facility] Labs. This test has not been cleared or approved by the U.S. Food and Drug Administration. This test was developed and its performance characteristics determined by [facility]. It has not been cleared or approved by the Food and Drug Administration. Performed at: [facility] - [address] [id number] Design Transferrer: Will Hatch PhD, Phone: [phone] Performed at: [place] [id number] Design Transferrer: Daron Almanza PhD, Phone: [phone] Performing Lab: see note [facility] LAB TESTING Reviewed date:11/08/2023 02:17:18 PM Interpretation: Performing Lab: Notes/Report: [id number] Vitamin E (a and ? Tocopherol) [facility] , Miscellaneous Test COMMENT . Test Ordered: [id number] Vitamin E Vitamin E(Alpha Tocopherol) 9.1 mg/L Reference Range: 5.9-19.4 This test was developed and its performance characteristics determined by [facility]. It has not been cleared or approved by the Food and Drug Administration. Vitamin E(Gamma Tocopherol) 0.7 mg/L Reference Range: 0.7-4.9 This test was developed and its performance characteristics determined by [facility]. It has not been cleared or approved by the Food and Drug Administration. Reference intervals for alpha and gamma-tocopherol determined from National Health and Nutrition Examination Survey, 8023-3945. Individuals with alpha-tocopherol levels less than 5.0 mg/L are considered vitamin E deficient. Performed at: [address] [id number] Design Transferrer: Suhas Ring MD, Phone: [phone] Performed at: [place] [id number] [place], [place] [id number] Design Transferrer: Daron Almanza PhD, Phone: [phone] Performing Lab: see note [facility] LAB TESTING Reviewed date:11/05/2023 08:17:18 AM Interpretation: Performing Lab: Notes/Report: [id number] Fatty Acid Profile, Essential [facility] , Miscellaneous Test COMMENT . Test Ordered: [id number] Fatty Acid Profile, Essential Interp, Fatty Acids Profile SP Normal Y8 Reference Range: . Normal fatty acid profile. Results reviewed and interpreted by Cash Jurado, PhD INTERPRETIVE INFORMATION: Fatty Acids Profile, Essential Ser/Plas This test does not screen for disorders of peroxisomal biogenesis/function. This test was developed and its performance characteristics determined by [facility]. It has not been cleared or approved [...] Acid, C18:2w6 2675 nmol/mL Y8 Reference Range: 1724-6407 a-Linolenic Acid, C18:3w3 67 nmol/mL Y8 Reference Range: 20-200 z-k-Ieasfeoyk C20:3w6 144 nmol/mL Y8 Reference Range: 45-340 g-Linolenic Acid, C18:3w6 37 nmol/mL Y8 Reference Range: 10-120 [place] Acid, C20:3w9 9 nmol/mL Y8 Reference Range: 1-35 Myristic Acid, C14:0 135 nmol/mL Y8 Reference Range: 20-520 Nervonic Acid, C24:1w9 143 nmol/mL Y8 Reference Range: 35-145 Oleic Acid, C18:1w9 1881 nmol/mL Y8 Reference Range: 740-3900 Palmitic Acid, C16:0 2563 nmol/mL Y8 Reference Range: 6892-6451 Palmitoleic Acid, C16:1w7 143 nmol/mL Y8 Reference [...] Range: . Authorized individuals can access the Fineline Enhanced Report using the following link: [email or web address] . Y8 Reference Range: . Performed at: [facility] [employer] [address] [place] [id number] Design Transferrer: Kirt Murphy [facility], Phone: [phone] Performed at: [address] [id number] Design Transferrer: Daron Almanza PhD, Phone: [phone] Performing Lab: see note [facility] LB LAB TESTING Reviewed date:11/03/2023 06:27:21 PM Interpretation: Performing Lab: Notes/Report: [id number] Chromium, Plasma [facility] , Miscellaneous Test COMMENT . Test Ordered: [id number] Chromium, Plasma Chromium, Plasma 1.0 ug/L [facility] Reference Range: 0.1-2.1 This test was developed and its performance characteristics determined by [facility]. It has not been cleared or approved by the Food and Drug Administration. Detection Limit = 0.1 Performed at: [facility] [address], [place], [place] [id number] Design Transferrer: Olga Michael MD, Phone: [phone] Performed at: [address] [id number] Design Transferrer: Daron Almanza PhD, Phone: [phone] Performing Lab: see note [facility] LB Vitamin A, Serum Reviewed date:11/11/2023 06:52:40 PM Interpretation: Performing Lab: Notes/Report: [facility] , Vitamin A, Serum 50.1 18.9-57.3 ug/dL Reference intervals for vitamin A determined from [facility]. Individuals with vitamin A less than 20 ug/dL are considered vitamin A deficient and those with serum concentrations less than 10 ug/dL are considered severely deficient. This test was developed and its performance characteristics determined by [facility]. It has not been cleared or approved by the Food and Drug Administration. Performed at: [address] [id number] Design Transferrer: Suhas Ring MD, Phone: [phone] Performing Lab: see note [facility] Vitamin B6, Plasma Reviewed date:11/03/2023 05:35:59 PM Interpretation: Performing Lab: Notes/Report: [facility] , Vitamin B6, Plasma 12.2 3.4-65.2 ug/L This test was developed and its performance characteristics determined by [facility]. It has not been cleared or approved by the Food and Drug Administration. Deficiency: <3.4 Marginal: 3.4 - 5.1 Adequate: >5.1 Performed at: [address] [id number] Design Transferrer: Suhas Ring MD, Phone: [phone] Performing Lab: see note [facility] ZINC SERUM OR PLASMA Reviewed date:11/11/2023 06:52:40 PM Interpretation: Performing Lab: Notes/Report: [facility] , Zinc Level 58 44-115 ug/dL This test was developed and its performance characteristics determined by [facility]. It has not been cleared or approved by the Food and Drug Administration. Detection Limit = 5 Performed at: [address] [id number] Design Transferrer: Suhas Ring MD, Phone: [phone] Performing Lab: see note [facility] LB LAB TESTING Reviewed date:11/01/2023 08:50:20 PM Interpretation: Performing Lab: Notes/Report: [id number] Selenium, Serum or Plasma [facility] , Miscellaneous Test COMMENT . Test Ordered: [id number] Selenium, Serum/Plasma Selenium, Serum/Plasma 111 ug/L Reference Range: 93-198 This test was developed and its performance characteristics determined by [facility]. It has not been cleared or approved by the Food and Drug Administration. Performed at: - [facility] [id number] Design Transferrer: Suhas Ring MD, Phone: [phone] Performed at: [facility] [address] [id number] Design Transferrer: Daron Almanza PhD, Phone: [phone] Performing Lab: see note - [facility] LB COPPER, SERUM or PLASMA Reviewed date:11/11/2023 06:52:40 PM Interpretation: Performing Lab: Notes/Report: [facility] , Copper Level 94 80-158 ug/dL This test was developed and its performance characteristics determined by [facility]. It has not been cleared or approved by the Food and Drug Administration. Detection Limit = 5 Performing Lab: see note - [facility] LB TRIGLYCERIDE Reviewed date:10/24/2023 08:22:27 PM Interpretation: Performing Lab: Notes/Report: [facility] , Triglycerides 123 <=150 mg/dL Performing Lab: see note ML - [facility] LB PROF 14(COMP METB) Reviewed date:10/24/2023 08:22:27 PM Interpretation: Performing Lab: Notes/Report: [facility] , Sodium 140 136-145 mmol/L Potassium [...] Performing Lab: see note ML - [facility] LB PHOSPHORUS Reviewed date:10/24/2023 08:22:27 PM Interpretation: Performing Lab: Notes/Report: [facility] , Phosphorus 2.4 2.6-4.7 mg/dL Performing Lab: see note [facility] LB MAGNESIUM Reviewed date:10/24/2023 08:22:27 PM Interpretation: Performing Lab: Notes/Report: [facility] , Magnesium 1.5 1.8-2.4 mg/dL Performing Lab: see note - [facility] TRIGLYCERIDE Reviewed date:10/10/2023 09:42:37 PM Interpretation: Performing Lab: Notes/Report: NURSE DROP OFF FROM [facility] , Triglycerides 132 <=150 mg/dL Performing Lab: see note [facility] PROF 14(COMP METB) Reviewed date:10/10/2023 09:42:37 PM Interpretation: Performing Lab: Notes/Report: NURSE DROP OFF FROM [facility] , Sodium 136 136-145 mmol/L Potassium [...] Ratio 1.2 Performing Lab: see note - [facility] LB PHOSPHORUS Reviewed date:10/10/2023 09:42:37 PM Interpretation: Performing Lab: Notes/Report: NURSE DROP OFF FROM [facility] , Phosphorus 2.4 2.6-4.7 mg/dL Performing Lab: see note ML - [facility] LB MAGNESIUM Reviewed date:10/10/2023 09:42:37 PM Interpretation: Performing Lab: Notes/Report: NURSE DROP OFF FROM [facility] , Magnesium 1.8 1.8-2.4 mg/dL Performing Lab: see note [facility] CBC AUTO DIFF Reviewed date:10/10/2023 09:42:37 PM Interpretation: Performing Lab: Notes/Report: NURSE DROP OFF FROM [facility] , White Blood Count 4.9 4.0-11.0 [...] 0.00-0.03 10 3/uL Performing Lab: see note [facility] LB CT abdomen pelvis w con Reviewed date:11/07/2023 09:01:52 PM Interpretation: Performing Lab: Notes/Report: Source Facility: [place] [address] CT Scan Report Signed Patient: JUAN GARCIA MR#: [id number] : 1990 Acct:[id number] Age/Sex: 33 / F ADM Date: 11/07/23 Loc: ER Attending Dr: Ordering Physician: Leslie Terrazas M.D. Date of Service: 11/07/23 Procedure(s): CT abdomen pelvis w con Accession Number(s): [id number] cc: Britt Alas M.D. The [place] [address] Patient Name: JUAN GARCIA MRN: [id number] date: 1990 Sex: F Assigned Patient Location: ED.MAIN Current Patient Location: ER Accession/Order Number: [id number] Exam Date: 11/07/2023 11:52 Report Date: 11/07/2023 [...] SOFY GREER Date: 11/07/2023 13:01 Dictated By: oSfy Greer M.D. Signed By: 11/07/23 1304 DD/ 1301 TD/TT: Screen Handler: [place] [address] CT Scan Report Signed Patient: JUAN GARCIA MR#: [id number] : 1990 Acct:[id number] Age/Sex: 33 / F ADM Date: 11/07/23 Loc: ER Attending Dr: Ordering Physician: Leslie Terrazas M.D. Date of Service: 11/07/23 Procedure(s): CT abd omen pelvis w con Accession Number(s): [id number] cc: Britt Alas M.D. [place] [id number] Patient Name: JUAN GARCIA MRN: [id number] date: 1990 Sex: F Assigned Patient Location: ED.MAIN Current Patient Loca tion: ER Accession/Order Numb er: [id number] Exam Date: 11/07/2023 11:52 Report Date: 11/07/2023 [...] Signed By: 11/07/23 1304 DD/ 1301 TD/TT: Screen Handler: CBC AUTO DIFF Reviewed date:08/10/2024 07:02:35 PM Interpretation: Performing Lab: Notes/Report: [facility] , White Blood Count 9.3 4.0-11.0 [...] 3/uL Performing Lab: see note ML - [facility] Aerobe ID + Suscept Reviewed date:08/19/2024 07:52:14 PM Interpretation: Performing Lab: Notes/Report: [facility] , Aerobe ID + Suscept See Below For Report Aerobe ID + Suscept O:GNR Isolated O:KLEBPN Isolated Organism: 1.2 Antibiotic Interpretation SANDHYA Status Aerobe ID + Suscept Specimen has been received and testing has been initiated. Aerobe ID + Suscept O:GNR Isolated O:KLEBPN Isolated Organism: 1.2 Antibiotic Interpretation SANDHYA Status Aerobe ID + Suscept Organism: Gram negat magalis jeffery : Aerobe ID + Suscept O:GNR Isolated O:KLEBPN Isolated Organism: 1.2 Antibiotic Interpretation SANDHYA Status Aerobe ID + Suscept *ABNORMAL* Aerobe ID + Suscept O:GNR Isolated O:KLEBPN Isolated Organism: 1.2 Antibiotic Interpretation SANDHYA Status Aerobe ID + Suscept Received aerobic bot tle only. Aerobe ID + Suscept O:GNR Isolated O:KLEBPN Isolated Organism: 1.2 Antibiotic Interpretation SANDHYA Status Aerobe ID + Suscept Identification and sensitivities to follow. Aerobe ID + Suscept O:GNR Isolated O:KLEBPN Isolated Organism: 1.2 Antibiotic Interpretation SANDHYA Status Aerobe ID + Suscept Gram negative jeffery Aerobe ID + Suscept O:GNR Isolated O:KLEBPN Isolated Organism: 1.2 Antibiotic Interpretation SANDHYA Status Aerobe ID + Suscept Organism: Klebsiella pneumoniae. : Aerobe ID + Suscept O:GNR Isolated O:KLEBPN Isolated Organism: 1.2 Antibiotic Interpretation SANDHYA Status Aerobe ID + Suscept *ABNORMAL* Aerobe ID + Suscept O:GNR Isolated O:KLEBPN Isolated Organism: 1.2 Antibiotic Interpretation SANDHYA Status Aerobe ID + Suscept Received aerobic bot tle only. Aerobe ID + Suscept O:GNR Isolated O:KLEBPN Isolated Organism: 1.2 Antibiotic Interpretation SANDHYA Status Aerobe ID + Suscept Klebsiella pneumoniae. Aerobe ID + Suscept O:GNR Isolated O:KLEBPN Isolated Organism: 1.2 Antibiotic Interpretation SANDHYA Status Aerobe ID + Suscept See Below For Report Aerobe ID + Suscept O:GNR Isolated O:KLEBPN Isolated Organism: 1.2 Antibiotic Interpretation SANDHYA Status Aerobe ID + Suscept See Below For Report Aerobe ID + Suscept O:GNR Isolated O:KLEBPN Isolated Organism: 1.2 Antibiotic Interpretation SANDHYA Status Aerobe ID + Suscept Performed at: [facility] Aerobe ID + Suscept O:GNR Isolated O:KLEBPN Isolated Organism: 1.2 Antibiotic Interpretation SANDHYA Status Aerobe ID + Suscept [address], [place] [id number] Aerobe ID + Suscept O:GNR Isolated O:KLEBPN Isolated Organism: 1.2 Antibiotic Interpretation SANDHYA Status Aerobe ID + Suscept Design Transferrer: Thierno Almanza PhD, Phone: [phone] Aerobe ID + Suscept O:GNR Isolated O:KLEBPN Isolated Organism: 1.2 Antibiotic Interpretation SANDHYA Status Aerobe ID + Suscept See Below For Report Aerobe ID + Suscept O:GNR Isolated O:KLEBPN Isolated Organism: 1.2 Antibiotic Interpretation SANDHYA Status Aerobe ID + Suscept AMOXICILLIN/CLAVULAN IC ACID S F Aerobe ID + Suscept O:GNR Isolated O:KLEBPN Isolated Organism: 1.2 Antibiotic Interpretation SANDHYA Status Aerobe ID + Suscept Ampicillin R F Aerobe ID + Suscept O:GNR Isolated O:KLEBPN Isolated Organism: 1.2 Antibiotic Interpretation SANDHYA Status Aerobe ID + Suscept Cefazolin S F Aerobe ID + Suscept O:GNR Isolated O:KLEBPN Isolated Organism: 1.2 Antibiotic Interpretation SANDHYA Status Aerobe ID + Suscept Cefepime S F Aerobe ID + Suscept O:GNR Isolated O:KLEBPN Isolated Organism: 1.2 Antibiotic Interpretation SANDHYA Status Aerobe ID + Suscept Cefoxitin S F Aerobe ID + Suscept O:GNR Isolated O:KLEBPN Isolated Organism: 1.2 Antibiotic Interpretation SANDHYA Status Aerobe ID + Suscept Cefpodoxime S F Aerobe ID + Suscept O:GNR Isolated O:KLEBPN Isolated Organism: 1.2 Antibiotic Interpretation SANDHYA Status Aerobe ID + Suscept Ceftriaxone S F Aerobe ID + Suscept O:GNR Isolated O:KLEBPN Isolated Organism: 1.2 Antibiotic Interpretation SANDHYA Status Aerobe ID + Suscept Ciprofloxacin S F Aerobe ID + Suscept O:GNR Isolated O:KLEBPN Isolated Organism: 1.2 Antibiotic Interpretation SANDHYA Status Aerobe ID + Suscept Ertapenem S F Aerobe ID + Suscept O:GNR Isolated O:KLEBPN Isolated Organism: 1.2 Antibiotic Interpretation SANDHYA Status Aerobe ID + Suscept Gentamicin S F Aerobe ID + Suscept O:GNR Isolated O:KLEBPN Isolated Organism: 1.2 Antibiotic Interpretation SANDHYA Status Aerobe ID + Suscept Levofloxacin S F Aerobe ID + Suscept O:GNR Isolated O:KLEBPN Isolated Organism: 1.2 Antibiotic Interpretation SANDHYA Status Aerobe ID + Suscept Meropenem S F Aerobe ID + Suscept O:GNR Isolated O:KLEBPN Isolated Organism: 1.2 Antibiotic Interpretation SANDHYA Status Aerobe ID + Suscept Tetracycline S F Aerobe ID + Suscept O:GNR Isolated O:KLEBPN Isolated Organism: 1.2 Antibiotic Interpretation SANDHYA Status Aerobe ID + Suscept Tobramycin S F Aerobe ID + Suscept O:GNR Isolated O:KLEBPN Isolated Organism: 1.2 Antibiotic Interpretation SANDHYA Status Aerobe ID + Suscept Trimethoprim/Sulfame thoxa zole S F Aerobe ID + Suscept O:GNR Isolated O:KLEBPN Isolated Organism: 1.2 Antibiotic Interpretation SANDHYA Status Aerobe ID + Suscept Piperacillin/Tazobac mcmanus S F Aerobe ID + Suscept O:GNR Isolated O:KLEBPN Isolated Organism: 1.2 Antibiotic Interpretation SANDHYA Status Performing Lab: see note LC - [facility] LB 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 Aerobe ID + Suscept Reviewed date:08/19/2024 07:52:14 PM Interpretation: Performing Lab: Notes/Report: [facility] , Aerobe ID + Suscept See Below For Report Aerobe ID + Suscept O:GNR Isolated O:KLEBPN Isolated Organism: 1.2 Antibiotic Interpretation SANDHYA Status Aerobe ID + Suscept Specimen has been received and testing has been initiated. Aerobe ID + Suscept O:GNR Isolated O:KLEBPN Isolated Organism: 1.2 Antibiotic Interpretation SANDHYA Status Aerobe ID + Suscept Organism: Gram negat magalis jeffery : Aerobe ID + Suscept O:GNR Isolated O:KLEBPN Isolated Organism: 1.2 Antibiotic Interpretation SANDHYA Status Aerobe ID + Suscept *ABNORMAL* Aerobe ID + Suscept O:GNR Isolated O:KLEBPN Isolated Organism: 1.2 Antibiotic Interpretation SANDHYA Status Aerobe ID + Suscept Received aerobic bot tle only. Aerobe ID + Suscept O:GNR Isolated O:KLEBPN Isolated Organism: 1.2 Antibiotic Interpretation SANDHYA Status Aerobe ID + Suscept Identification and sensitivities to follow. Aerobe ID + Suscept O:GNR Isolated O:KLEBPN Isolated Organism: 1.2 Antibiotic Interpretation SANDHYA Status Aerobe ID + Suscept Gram negative jeffery Aerobe ID + Suscept O:GNR Isolated O:KLEBPN Isolated Organism: 1.2 Antibiotic Interpretation SANDHYA Status Aerobe ID + Suscept Organism: Klebsiella pneumoniae. : Aerobe ID + Suscept O:GNR Isolated O:KLEBPN Isolated Organism: 1.2 Antibiotic Interpretation SANDHYA Status Aerobe ID + Suscept *ABNORMAL* Aerobe ID + Suscept O:GNR Isolated O:KLEBPN Isolated Organism: 1.2 Antibiotic Interpretation SANDHYA Status Aerobe ID + Suscept Received aerobic bot tle only. Aerobe ID + Suscept O:GNR Isolated O:KLEBPN Isolated Organism: 1.2 Antibiotic Interpretation SANDHYA Status Aerobe ID + Suscept Klebsiella pneumoniae. Aerobe ID + Suscept O:GNR Isolated O:KLEBPN Isolated Organism: 1.2 Antibiotic Interpretation SANDHYA Status Aerobe ID + Suscept See Below For Report Aerobe ID + Suscept O:GNR Isolated O:KLEBPN Isolated Organism: 1.2 Antibiotic Interpretation SANDHYA Status Aerobe ID + Suscept See Below For Report Aerobe ID + Suscept O:GNR Isolated O:KLEBPN Isolated Organism: 1.2 Antibiotic Interpretation SANDHYA Status Aerobe ID + Suscept [facility] + Suscept O:GNR Isolated O:KLEBPN Isolated Organism: 1.2 Antibiotic Interpretation SANDHYA Status Aerobe ID + Suscept [address], [place] [id number] Aerobe ID + Suscept O:GNR Isolated O:KLEBPN Isolated Organism: 1.2 Antibiotic Interpretation SANDHYA Status Aerobe ID + Suscept Design Transferrer: Thierno Almanza PhD, Phone: [phone] Aerobe ID + Suscept O:GNR Isolated O:KLEBPN Isolated Organism: 1.2 Antibiotic Interpretation SANDHYA Status Aerobe ID + Suscept See Below For Report Aerobe ID + Suscept O:GNR Isolated O:KLEBPN Isolated Organism: 1.2 Antibiotic Interpretation SANDHYA Status Aerobe ID + Suscept AMOXICILLIN/CLAVULAN IC ACID I F Aerobe ID + Suscept O:GNR Isolated O:KLEBPN Isolated Organism: 1.2 Antibiotic Interpretation SANDHYA Status Aerobe ID + Suscept Ampicillin R F Aerobe ID + Suscept O:GNR Isolated O:KLEBPN Isolated Organism: 1.2 Antibiotic Interpretation SANDHYA Status Aerobe ID + Suscept Cefazolin S F Aerobe ID + Suscept O:GNR Isolated O:KLEBPN Isolated Organism: 1.2 Antibiotic Interpretation SANDHYA Status Aerobe ID + Suscept Cefepime S F Aerobe ID + Suscept O:GNR Isolated O:KLEBPN Isolated Organism: 1.2 Antibiotic Interpretation SANDHYA Status Aerobe ID + Suscept Cefoxitin S F Aerobe ID + Suscept O:GNR Isolated O:KLEBPN Isolated Organism: 1.2 Antibiotic Interpretation SANDHYA Status Aerobe ID + Suscept Cefpodoxime S F Aerobe ID + Suscept O:GNR Isolated O:KLEBPN Isolated Organism: 1.2 Antibiotic Interpretation SANDHYA Status Aerobe ID + Suscept Ceftriaxone S F Aerobe ID + Suscept O:GNR Isolated O:KLEBPN Isolated Organism: 1.2 Antibiotic Interpretation SANDHYA Status Aerobe ID + Suscept Ciprofloxacin S F Aerobe ID + Suscept O:GNR Isolated O:KLEBPN Isolated Organism: 1.2 Antibiotic Interpretation SANDHYA Status Aerobe ID + Suscept Ertapenem S F Aerobe ID + Suscept O:GNR Isolated O:KLEBPN Isolated Organism: 1.2 Antibiotic Interpretation SANDHYA Status Aerobe ID + Suscept Gentamicin S F Aerobe ID + Suscept O:GNR Isolated O:KLEBPN Isolated Organism: 1.2 Antibiotic Interpretation SANDHYA Status Aerobe ID + Suscept Levofloxacin S F Aerobe ID + Suscept O:GNR Isolated O:KLEBPN Isolated Organism: 1.2 Antibiotic Interpretation SANDHYA Status Aerobe ID + Suscept Meropenem S F Aerobe ID + Suscept O:GNR Isolated O:KLEBPN Isolated Organism: 1.2 Antibiotic Interpretation SANDHYA Status Aerobe ID + Suscept Tetracycline S F Aerobe ID + Suscept O:GNR Isolated O:KLEBPN Isolated Organism: 1.2 Antibiotic Interpretation SANDHYA Status Aerobe ID + Suscept Tobramycin S F Aerobe ID + Suscept O:GNR Isolated O:KLEBPN Isolated Organism: 1.2 Antibiotic Interpretation SANDHYA Status Aerobe ID + Suscept Trimethoprim/Sulfame thoxa zole S F Aerobe ID + Suscept O:GNR Isolated O:KLEBPN Isolated Organism: 1.2 Antibiotic Interpretation SANDHYA Status Aerobe ID + Suscept Piperacillin/Tazobac mcmanus S F Aerobe ID + Suscept O:GNR Isolated O:KLEBPN Isolated Organism: 1.2 Antibiotic Interpretation SANDHYA Status Performing Lab: see note LC - [facility] LB 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 BLOOD CULTURE ID PANEL Reviewed date:08/29/2024 05:13:56 PM Interpretation: Performing Lab: Notes/Report: [facility] , CTX-M NOT DETECTED NOT DETECTE IMP NOT DETECTED NOT DETECTE KPC NOT DETECTED NOT DETECTE mcr-1 NOT DETECTED NOT DETECTE mecA/C NOT APPLICABLE NOT DETECTE mecA/C and MREJ (MRSA) NOT APPLICABLE NOT DETECTE NDM NOT DETECTED NOT DETECTE OXA-48-like NOT DETECTED NOT DETECTE Ama/B NOT APPLICABLE NOT DETECTE VIM NOT DETECTED NOT DETECTE Source BLOOD Enterococcus faecalis NOT DETECTED NOT DETECTE Enterococcus [...] Enterobacterales DETECTED NOT DETECTE RESULTS CALLED TO KANWAL ARITA RN @BY Andie Yepez at 0040 Enterobacter cloacae complex NOT DETECTED NOT DETECTE Escherichia coli NOT DETECTED NOT DETECTE Klebsiella aerogenes NOT DETECTED NOT DETECTE Klebsiella oxytoca NOT DETECTED NOT DETECTE Klebsiella pneumoniae group DETECTED NOT DETECTE RESULTS CALLED TO KANWAL ARITA RN @BY Andie Yepez at 0040 Proteus spp. NOT DETECTED NOT DETECTE Salmonella [...] DETECTE Performing Lab: see note ML - [facility] LB DRUG SCREEN RAPID (URINE) Reviewed date:08/28/2024 06:06:36 PM Interpretation: Performing Lab: Notes/Report: [facility] , Cannabinoid Screen Urine NEGATIVE NEGATIVE Phencyclidine Screen Urine NEGATIVE NEGATIVE Cocaine Screen Urine NEGATIVE NEGATIVE Methamphetamines Screen Urine NEGATIVE NEGATIVE Opiate Screen Urine POSITIVE NEGATIVE Amphetamine Screen Urine NEGATIVE NEGATIVE Benzodiazepines Screen Urine NEGATIVE NEGATIVE Tricyclic Antidepressant Urine NEGATIVE NEGATIVE Methadone Screen Urine NEGATIVE NEGATIVE Barbiturates Screen Urine NEGATIVE NEGATIVE Oxycodone Screen Urine NEGATIVE NEGATIVE Buprenorphine Screen Urine NEGATIVE NEGATIVE DRUG CLASS TEST SYSTEM CUT-OFF CONCENTRATIONS ARE FOLLOWS: AMP (Amphetamine): 500 ng/mL BAR (Barbiturates): 200 ng/mL BZO (Benzodiazepines): 150 ng/mL BUP (Buprenorphine): 10 ng/mL NAIF (Cocaine): 150 ng/mL mAMP (Methamphetamine): 500 ng/mL MTD (Methadone): 200 ng/mL OPI (Opiates): 100 ng/mL OXY (Oxycodone): 100 ng/mL PCP (Phencyclidine): 25 ng/mL THC (Cannabinoids): 50 ng/mL TCA (Trycyclic Antidepressants): 300 ng/mL Performing Lab: see note ML - [facility] LB LACTATE or LACTIC ACID Reviewed date:08/28/2024 06:06:36 PM Interpretation: Performing Lab: Notes/Report: [facility] , Lactate/Lactic Acid 1.4 0.4-2.0 mmol/L Performing Lab: see note ML - [facility] LB LIPASE Reviewed date:08/28/2024 06:06:36 PM Interpretation: Performing Lab: Notes/Report: [facility] , Lipase 40.0 16.0-77.0 U/L Performing Lab: see note ML - [facility] LB UA (CLEAN or CATCH) 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 Reviewed date:08/28/2024 06:06:36 PM Interpretation: Performing Lab: Notes/Report: [facility] , Color Urine LT. YELLOW YELLOW Clarity Urine CLEAR CLEAR Specific Winn Urine 1.015 1.005-1.025 pH Urine 6.0 5.0-9.0 Protein Urine NEGATIVE NEG/TRACE mg/dL Glucose Urine UA NEGATIVE NEGATIVE mg/dL Bilirubin Urine NEGATIVE NEGATIVE Ketones Urine NEGATIVE NEGATIVE mg/dL Blood Urine NEGATIVE NEGATIVE Nitrite Urine NEGATIVE NEGATIVE Urobilinogen Urine 0.2 0.2-1.0 EU/dL Leukocyte Esterase Urine NEGATIVE NEGATIVE Urine Microscopic Indicated NO Performing Lab: see note ML - [facility] LB Manual Differential Reviewed date:08/28/2024 06:06:36 PM Interpretation: Performing Lab: Notes/Report: [facility] , Segmented Neutrophils % Manual 86.0 43.0-75.0 Lymphocytes Percent Manual 10.0 20.5-60.0 % Monocytes Percent Manual 2.0 1.7-12.0 % Eosinophils Percent Manual 0.0 0.9-7.0 % Basophils Percent Manual 2.0 0.2-2.0 % Segmented Neut Absolute Manual 4.47 1.4-6.5 10 3/uL Lymphocytes Absolute Manual 0.52 1.20-3.80 10 3/uL Monocytes Absolute Manual 0.10 0.30-0.80 10 3/uL Eosinophils Absolute Manual 0.00 0.00-0.70 10 3/uL Basophils Abs Manual 0.10 0.00-0.10 1 0 3/uL Performing Lab: see note ML - [facility] LB Aerobe ID + Suscept Reviewed date:09/02/2024 02:54:42 PM Interpretation: Performing Lab: Notes/Report: [facility] , Aerobe ID + Suscept See Below For Report Aerobe ID + Suscept Organism: Gram negative jeffery : O:GNR Isolated O:KLEBPN Isolated Organism: 1.2 Antibiotic Interpretation SANDHYA Status Aerobe ID + Suscept *ABNORMAL* Aerobe ID + Suscept Organism: Gram negative jeffery : O:GNR Isolated O:KLEBPN Isolated Organism: 1.2 Antibiotic Interpretation SANDHYA Status Aerobe ID + Suscept Recovered from aerob ic bottle only. Aerobe ID + Suscept Organism: Gram negative jeffery : O:GNR Isolated O:KLEBPN Isolated Organism: 1.2 Antibiotic Interpretation SANDHYA Status Aerobe ID + Suscept Gram negative jeffery Aerobe ID + Suscept Organism: Gram negative jeffery : O:GNR Isolated O:KLEBPN Isolated Organism: 1.2 Antibiotic Interpretation SANDHYA Status Aerobe ID + Suscept Organism: Klebsiella pneumoniae. : Aerobe ID + Suscept Organism: Gram negative jeffery : O:GNR Isolated O:KLEBPN Isolated Organism: 1.2 Antibiotic Interpretation SANDHYA Status Aerobe ID + Suscept *ABNORMAL* Aerobe ID + Suscept Organism: Gram negative jeffery : O:GNR Isolated O:KLEBPN Isolated Organism: 1.2 Antibiotic Interpretation SANDHYA Status Aerobe ID + Suscept Recovered from aerob ic bottle only. Aerobe ID + Suscept Organism: Gram negative jeffery : O:GNR Isolated O:KLEBPN Isolated Organism: 1.2 Antibiotic Interpretation SANDHYA Status Aerobe ID + Suscept Klebsiella pneumoniae. Aerobe ID + Suscept Organism: Gram negative jeffery : O:GNR Isolated O:KLEBPN Isolated Organism: 1.2 Antibiotic Interpretation SANDHYA Status Aerobe ID + Suscept See Below For Report Aerobe ID + Suscept Organism: Gram negative jeffery : O:GNR Isolated O:KLEBPN Isolated Organism: 1.2 Antibiotic Interpretation SANDHYA Status Aerobe ID + Suscept See Below For Report Aerobe ID + Suscept Organism: Gram negative jeffery : O:GNR Isolated O:KLEBPN Isolated Organism: 1.2 Antibiotic Interpretation SANDHYA Status Aerobe ID + Suscept Performed at: [facility] Aerobe ID + Suscept Organism: Gram negative jeffery : O:GNR Isolated O:KLEBPN Isolated Organism: 1.2 Antibiotic Interpretation SANDHYA Status Aerobe ID + Suscept [address], [place] [id number] Aerobe ID + Suscept Organism: Gram negative jeffery : O:GNR Isolated O:KLEBPN Isolated Organism: 1.2 Antibiotic Interpretation SANDHYA Status Aerobe ID + Suscept Design Transferrer: Thierno Almanza PhD, Phone: [phone] Aerobe ID + Suscept Organism: Gram negative jeffery : O:GNR Isolated O:KLEBPN Isolated Organism: 1.2 Antibiotic Interpretation SANDHYA Status Aerobe ID + Suscept See Below For Report Aerobe ID + Suscept Organism: Gram negative jeffery : O:GNR Isolated O:KLEBPN Isolated Organism: 1.2 Antibiotic Interpretation SANDHYA Status Aerobe ID + Suscept AMOXICILLIN/CLAVULAN IC ACID S F Aerobe ID + Suscept Organism: Gram negative jeffery : O:GNR Isolated O:KLEBPN Isolated Organism: 1.2 Antibiotic Interpretation SANDHYA Status Aerobe ID + Suscept Ampicillin R F Aerobe ID + Suscept Organism: Gram negative jeffery : O:GNR Isolated O:KLEBPN Isolated Organism: 1.2 Antibiotic Interpretation SANDHYA Status Aerobe ID + Suscept Cefazolin S F Aerobe ID + Suscept Organism: Gram negative jeffery : O:GNR Isolated O:KLEBPN Isolated Organism: 1.2 Antibiotic Interpretation SANDHYA Status Aerobe ID + Suscept Cefepime S F Aerobe ID + Suscept Organism: Gram negative jeffery : O:GNR Isolated O:KLEBPN Isolated Organism: 1.2 Antibiotic Interpretation SANDHYA Status Aerobe ID + Suscept Cefoxitin S F Aerobe ID + Suscept Organism: Gram negative jeffery : O:GNR Isolated O:KLEBPN Isolated Organism: 1.2 Antibiotic Interpretation SANDHYA Status Aerobe ID + Suscept Cefpodoxime S F Aerobe ID + Suscept Organism: Gram negative jeffery : O:GNR Isolated O:KLEBPN Isolated Organism: 1.2 Antibiotic Interpretation SANDHYA Status Aerobe ID + Suscept Ceftriaxone S F Aerobe ID + Suscept Organism: Gram negative jeffery : O:GNR Isolated O:KLEBPN Isolated Organism: 1.2 Antibiotic Interpretation SANDHYA Status Aerobe ID + Suscept Ciprofloxacin S F Aerobe ID + Suscept Organism: Gram negative jeffery : O:GNR Isolated O:KLEBPN Isolated Organism: 1.2 Antibiotic Interpretation SANDHYA Status Aerobe ID + Suscept Ertapenem S F Aerobe ID + Suscept Organism: Gram negative jeffery : O:GNR Isolated O:KLEBPN Isolated Organism: 1.2 Antibiotic Interpretation SANDHYA Status Aerobe ID + Suscept Gentamicin S F Aerobe ID + Suscept Organism: Gram negative jeffery : O:GNR Isolated O:KLEBPN Isolated Organism: 1.2 Antibiotic Interpretation SANDHYA Status Aerobe ID + Suscept Levofloxacin S F Aerobe ID + Suscept Organism: Gram negative jeffery : O:GNR Isolated O:KLEBPN Isolated Organism: 1.2 Antibiotic Interpretation SANDHYA Status Aerobe ID + Suscept Meropenem S F Aerobe ID + Suscept Organism: Gram negative jeffery : O:GNR Isolated O:KLEBPN Isolated Organism: 1.2 Antibiotic Interpretation SANDHYA Status Aerobe ID + Suscept Tetracycline S F Aerobe ID + Suscept Organism: Gram negative jeffery : O:GNR Isolated O:KLEBPN Isolated Organism: 1.2 Antibiotic Interpretation SANDHYA Status Aerobe ID + Suscept Tobramycin S F Aerobe ID + Suscept Organism: Gram negative jeffery : O:GNR Isolated O:KLEBPN Isolated Organism: 1.2 Antibiotic Interpretation SANDHYA Status Aerobe ID + Suscept Trimethoprim/Sulfame thoxa zole S F Aerobe ID + Suscept Organism: Gram negative jeffery : O:GNR Isolated O:KLEBPN Isolated Organism: 1.2 Antibiotic Interpretation SANDHYA Status Aerobe ID + Suscept Piperacillin/Tazobac mcmanus S F Aerobe ID + Suscept Organism: Gram negative jeffery : O:GNR Isolated O:KLEBPN Isolated Organism: 1.2 Antibiotic Interpretation SANDHYA Status Performing Lab: 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 Anaerobe Identification Only Reviewed date:09/04/2024 07:21:01 PM Interpretation: Performing Lab: Notes/Report: [facility] , Anaerobe Identification Only See Below For Report Anaerobe Identification Only WILL FOLLOW Anaerobe Identification Only Anaerobe Identification Only WILL FOLLOW Anaerobe Identification Only Specimen has been received and testing has been initiated. Anaerobe Identification Only WILL FOLLOW Anaerobe Identification Only Anaerobe Identification Only WILL FOLLOW Anaerobe Identification Only No anaerobes recovered. Anaerobe Identification Only WILL FOLLOW Anaerobe Identification Only Performed at: [facility] Anaerobe Identification Only WILL FOLLOW Anaerobe Identification Only [address] [place] [phone] Anaerobe Identification Only WILL FOLLOW Anaerobe Identification Only Design Transferrer: Daron Almanza PhD, Phone: [phone] Anaerobe Identification Only WILL FOLLOW Performing Lab: see note LC - [facility] LB 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 ECG 12 lead Reviewed date:08/30/2024 05:17:51 PM Interpretation: Performing Lab: Notes/Report: Source Facility: [place] [address] Electrocardiograph Report Signed Patient: JUAN GARCIA MR#: [id number] : 1990 Acct:[id number] Age/Sex: 34 / F ADM Date: 08/28/24 Loc: [place] 218-[address]: Kal Wilson M.D. 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 Signed By: 08/30/24 1325 DD/ 1420 TD/TT: Screen Handler: [place] [address] Electrocardiograph Report Signed Patient: JUAN GARCIA MR#: [id number] : 1990 Acct:[id number] Age/Sex: 34 / F ADM Date: 08/28/24 Loc: MS 218-[address]: Kal Wilson M.D. 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 Signed By: 08/30/24 1325 DD/ 1420 TD/TT: Screen Handler: XR chest 2V Reviewed date:08/28/2024 06:06:36 PM Interpretation: Performing Lab: Notes/Report: Source Facility: [place] [address] XRay Report Signed Patient: JUAN GARCIA MR#: [id number] : 1990 Acct:[id number] Age/Sex: 34 / F ADM Date: 08/28/24 Loc: ER Attending Dr: Ordering Physician: Domenica Romeo Date of Service: 08/28/24 Procedure(s): XR chest 2V Accession Number(s): [id number] cc: Domenica Romeo; Britt Alas M.D. The [address] [address] Patient Name: JUAN GARCIA MRN: [id number] date: 1990 Sex: F Assigned Patient Location: ER Current Patient Location: ER Accession/Order Number: [id number] Exam Date: 08/28/2024 16:39 Report Date: 08/28/2024 16:40 At the request of: DOMENICA ROMEO SALES ANALYST Procedure: XR chest 2V XR chest 2V 08/28/2024 4:09 PM SIGNS AND SYMPTOMS: Fever, nausea, vomiting, back pain, flank pain, chills PROTOCOL: Frontal and lateral radiographs of the chest COMPARISON: 08/15/2024 FINDINGS: The trachea is midline. There is a similar right IJ line with the tip in the superior vena cava. The heart and mediastinal structures are within normal limits. The lung parenchyma is clear. The bony thorax is intact. XR/XR chest 2V IMPRESSION: No acute cardiopulmonary pathology. Impression dictated by: Roddy Hutchinson M.D. 08/28/2024 4:40 PM Dictation Location: [place] [address] Electronically authenticated by: [id number] Y Date: 08/28/2024 16:40 Dictated By: Roddy Hutchinson M.D. Signed By: 08/28/24 1642 DD/ 1640 TD/TT: Screen Handler: The [address] [address] XRay Report Signed Patient: JUAN GARCIA MR#: [id number] : 1990 Acct:[id number] Age/Sex: 34 / F ADM Date: 08/28/24 Loc: ER Attending Dr: Ordering Physician: Domenica Romeo Date of Service: 08/28/24 Procedure(s): XR chest 2V Accession Number(s): [id number] cc: Domenica Romeo; Britt Alas M.D. The [address] [id number] Patient Name: JUAN GARCIA MRN: [id number] date: 1990 Sex: F Assigned Patient Location: ER Current Patient Loca tion: ER Accession/Order Numb er: [id number] Exam Date: 08/28/2024 16:39 Report Date: 08/28/2024 16:40 At the request of: DOMENICA ROMEO NP Procedure: XR chest 2V XR chest 2V 4:09 PM SIGNS AND SYMPTOMS: Fever, nausea, vomiting, back pain, flank pain, chills PROTOCOL: Frontal an d lateral radiographs of the chest COMPARISON: 08/15/2024 FINDINGS: The trachea is midli ne. There is a similar right IJ line with the tip in the superior vena cava. The heart and mediastinal structures are within normal limits. The lung parenchyma is clear. The bony thorax is intact. X R/XR chest 2V IMPRESSION: No acute cardiopulmo nary pathology. Impression dictated by: Roddy Hutchinson M.D. 08/28/2024 4:40 PM Dictation Location: [place] [address] Electronically authenticated by: [id number] Y Date: 08/28/2024 16:40 Dictated By: Roddy Hutchinson M.D. Signed By: 08/28/24 1642 DD/ 1640 TD/TT: Screen Handler: CT abdomen pelvis w con Reviewed date:08/28/2024 06:06:36 PM Interpretation: Performing Lab: Notes/Report: Source Facility: [place] [address] CT Scan Report Signed Patient: JUAN GARCIA MR#: [id number] : 1990 Acct:[id number] Age/Sex: 34 / F ADM Date: 08/28/24 Loc: ER Attending Dr: Ordering Physician: Domenica Romeo Date of Service: 08/28/24 Procedure(s): CT abdomen pelvis w con Accession Number(s): [id number] cc: Britt Alas M.D. [place] [address] Patient Name: JUAN GARCIA MRN: [facility]:[id number] date: 1990 Sex: F Assigned Patient Location: ER Current Patient Location: ER Accession/Order Number: [id number] Exam Date: 08/28/2024 16:40 Report Date: 08/28/2024 16:46 At the request of: DOMENICA ROMEO NP Procedure: CT abdomen pelvis w con CT abdomen pelvis w con 08/28/2024 4:05 PM SIGNS AND SYMPTOMS: abdomen pain, fever S.br TECHNIQUE: Multidetector ct axial images of the abdomen and pelvis were obtained with IV contrast. Multiplanar reformats were performed and reviewed to further define anatomy and possible pathology. CT was performed with one or more of the following dose reduction techniques: Automated exposure control, adjustment of the mA and/or kV according to patient size, or use of iterative reconstruction technique. COMPARISON: 08/16/2024 FINDINGS: Lower Chest: There is a small pericardial effusion. ABDOMEN: Liver: Multiple hepatic cysts are redemonstrated similar to the prior study. Bile Ducts: Normal caliber. Gallbladder: Previously removed. Pancreas: Within normal limits. Spleen: There is splenomegaly with the spleen measuring 14.0 cm in AP dimension. Adrenals: Within normal limits. Kidneys: There is a simple cyst in the right renal cortex requiring no further follow-up. Pelvis: Reproductive Organs: No pelvic masses. Ureters: Within normal limits. Bladder: There is mild bladder wall thickening and adjacent fat stranding suspicious for cystitis. Bowel: There is evidence of previous appendectomy. There is wall thickening along the ascending colon which is nonspecific possibly relating to colitis. 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 Mesenteric Lymph Nodes: No enlarged mesenteric lymph nodes. Peritoneum: No ascites or free air, no fluid collection. Vessels: Atherosclerotic changes are noted in the abdominal aorta and its branches. Retroperitoneum: Within normal limits. Abdominal Wall: There is evidence of previous midline laparotomy. Bones: Within normal limits. CT/CT abdomen pelvis w con IMPRESSION: No bowel obstruction or obstructive uropathy. There is mild bladder wall thickening and adjacent fat stranding suspicious for cystitis. There is wall thickening along the ascending colon which is nonspecific possibly relating to colitis. Impression dictated by: Roddy Hutchinson M.D. 08/28/2024 4:46 PM Dictation Location: [place] [address] Electronically authenticated by: [id number] Y Date: 08/28/2024 16:46 Dictated By: Roddy Hutchinson M.D. Signed By: 08/28/241648 DD/ 45 TD/TT: Screen Handler: The [address] [address] [address] Scan Report Signed Patient: JUAN GARCIA MR#: [id number] : 1990 Acct:[id number] Age/Sex: 34 / F ADM Date: 08/28/24 Loc: ER Attending Dr: Ordering Physician: Domenica Romeo Date of Service: 08/28/24 Procedure(s): CT abd omen pelvis w con Accession Number(s): [id number] cc: Britt Alas M.D. [address] [address] Patient Name: JUAN GARCIA MRN: H:[id number] date: 1990 Sex: F Assigned Patient Location: ER Current Patient Loca tion: ER Accession/Order Numb er: [id number] Exam Date: 08/28/2024 16:40 Report Date: 08/28/2024 16:46 At the request of: DOMENICA ROMEO SALES ANALYST Procedure: CT abdome n pelvis w con CT abdomen pelvis w con 08/28/2024 4:05 PM SIGNS AND SYMPTOMS: abdomen pain, fever See Below For Report TECHNIQUE: Multidete ctor ct axial images of the abdomen and pelvis were obtained with IV contrast. Multiplanar reformats were performed and reviewed to further define an atomy and possible pathology. CT was performed with one or more of the follo wing dose reduction techniques: Automated exposure control, adjustment of the mA and/or kV according to patient size, or use of iterative reconstruc tion technique. COMPARISON: 08/16/2024 FINDINGS: Lower Chest: There i s a small pericardial effusion. ABDOMEN: Liver: Multiple hepa tic cysts are redemonstrated similar to the prior study. Bile Ducts: Normal caliber. Gallbladder: Previou sly removed. Pancreas: Within nor mal limits. Spleen: There is splenomegaly with the spleen measuring 14.0 cm in AP dimension. Adrenals: Within nor mal limits. Kidneys: There is a simple cyst in the right renal cortex requiring no further follow-up. Pelvis: Reproductive Organs: No pelvic masses. Ureters: Within norm al limits. Bladder: There is mi ld bladder wall thickening and adjacent fat stranding suspicious for cystitis. Bowel: There is evid ence of previous appendectomy. There is wall thickening along the ascending colon which is nonspecific possibly relating to colitis. Postoperative change s are noted consistent with prior gastric bypass. Mesenteric Lymph Nod es: No enlarged mesenteric lymph nodes. Peritoneum: No ascit es or free air, no fluid collection. Vessels: Atheroscler otic changes are noted in the abdominal aorta and its branches. Retroperitoneum: Wit hin normal limits. Abdominal Wall: Ther e is evidence of previous midline laparotomy. Bones: Within normal limits. C T/CT abdomen pelvis w con IMPRESSION: No bowel obstruction or obstructive uropathy. There is mild bladde r wall thickening and adjacent fat stranding suspicious for cystitis. There is wall thicke jose along the ascending colon which is nonspecific possibly relating to colitis. Impression dictated by: Roddy Hutchinson M.D. 08/28/2024 4:46 PM Dictation Location: [place] [address] Electronically authenticated by: [id number] Y Date: 08/28/2024 16:46 Dictated By: Roddy Hutchinson M.D. Signed By: 08/28/24 1649 DD/ 1646 TD/TT: Screen Handler: Aerobe ID + Suscept Reviewed date:09/04/2024 07:21:01 PM Interpretation: Performing Lab: Notes/Report: [facility] , Aerobe ID + Suscept See Below For Report Aerobe ID + Suscept Organism: Gram negative jeffery : O:GNR Isolated O:KLEBPN Isolated Organism: 1.2 Antibiotic Interpretation SANDHYA Status Aerobe ID + Suscept *ABNORMAL* Aerobe ID + Suscept Organism: Gram negative jeffery : O:GNR Isolated O:KLEBPN Isolated Organism: 1.2 Antibiotic Interpretation SANDHYA Status Aerobe ID + Suscept Recovered from anaer obic bottle only. Aerobe ID + Suscept Organism: Gram negative jeffery : O:GNR Isolated O:KLEBPN Isolated Organism: 1.2 Antibiotic Interpretation SANDHYA Status Aerobe ID + Suscept Gram negative jeffery Aerobe ID + Suscept Organism: Gram negative jeffery : O:GNR Isolated O:KLEBPN Isolated Organism: 1.2 Antibiotic Interpretation SANDHYA Status Aerobe ID + Suscept Organism: Klebsiella pneumoniae. : Aerobe ID + Suscept Organism: Gram negative jeffery : O:GNR Isolated O:KLEBPN Isolated Organism: 1.2 Antibiotic Interpretation SANDHYA Status Aerobe ID + Suscept *ABNORMAL* Aerobe ID + Suscept Organism: Gram negative jeffery : O:GNR Isolated O:KLEBPN Isolated Organism: 1.2 Antibiotic Interpretation SANDHYA Status Aerobe ID + Suscept Recovered from anaer obic bottle only. Aerobe ID + Suscept Organism: Gram negative jeffery : O:GNR Isolated O:KLEBPN Isolated Organism: 1.2 Antibiotic Interpretation SANDHYA Status Aerobe ID + Suscept Klebsiella pneumoniae. Aerobe ID + Suscept Organism: Gram negative jeffery : O:GNR Isolated O:KLEBPN Isolated Organism: 1.2 Antibiotic Interpretation SANDHYA Status Aerobe ID + Suscept See Below For Report Aerobe ID + Suscept Organism: Gram negative jeffery : O:GNR Isolated O:KLEBPN Isolated Organism: 1.2 Antibiotic Interpretation SANDHYA Status Aerobe ID + Suscept See Below For Report Aerobe ID + Suscept Organism: Gram negative jeffery : O:GNR Isolated O:KLEBPN Isolated Organism: 1.2 Antibiotic Interpretation SANDHYA Status Aerobe ID + Suscept See Below For Report Aerobe ID + Suscept Organism: Gram negative jeffery : O:GNR Isolated O:KLEBPN Isolated Organism: 1.2 Antibiotic Interpretation SANDHYA Status Aerobe ID + Suscept AMOXICILLIN/CLAVULAN IC ACID S F Aerobe ID + Suscept Organism: Gram negative jeffery : O:GNR Isolated O:KLEBPN Isolated Organism: 1.2 Antibiotic Interpretation SANDHYA Status Aerobe ID + Suscept Ampicillin R F Aerobe ID + Suscept Organism: Gram negative jeffery : O:GNR Isolated O:KLEBPN Isolated Organism: 1.2 Antibiotic Interpretation SANDHYA Status Aerobe ID + Suscept Cefazolin S F Aerobe ID + Suscept Organism: Gram negative jeffery : O:GNR Isolated O:KLEBPN Isolated Organism: 1.2 Antibiotic Interpretation SANDHYA Status Aerobe ID + Suscept Cefepime S F Aerobe ID + Suscept Organism: Gram negative jeffery : O:GNR Isolated O:KLEBPN Isolated Organism: 1.2 Antibiotic Interpretation SANDHYA Status Aerobe ID + Suscept Cefoxitin S F Aerobe ID + Suscept Organism: Gram negative jeffery : O:GNR Isolated O:KLEBPN Isolated Organism: 1.2 Antibiotic Interpretation SANDHYA Status Aerobe ID + Suscept Cefpodoxime S F Aerobe ID + Suscept Organism: Gram negative jeffery : O:GNR Isolated O:KLEBPN Isolated Organism: 1.2 Antibiotic Interpretation SANDHYA Status Aerobe ID + Suscept Ceftriaxone S F Aerobe ID + Suscept Organism: Gram negative jeffery : O:GNR Isolated O:KLEBPN Isolated Organism: 1.2 Antibiotic Interpretation SANDHYA Status Aerobe ID + Suscept Ciprofloxacin S F Aerobe ID + Suscept Organism: Gram negative jeffery : O:GNR Isolated O:KLEBPN Isolated Organism: 1.2 Antibiotic Interpretation SANDHYA Status Aerobe ID + Suscept Ertapenem S F Aerobe ID + Suscept Organism: Gram negative jeffery : O:GNR Isolated O:KLEBPN Isolated Organism: 1.2 Antibiotic Interpretation SANDHYA Status Aerobe ID + Suscept Gentamicin S F Aerobe ID + Suscept Organism: Gram negative jeffery : O:GNR Isolated O:KLEBPN Isolated Organism: 1.2 Antibiotic Interpretation SANDHYA Status Aerobe ID + Suscept Levofloxacin S F Aerobe ID + Suscept Organism: Gram negative jeffery : O:GNR Isolated O:KLEBPN Isolated Organism: 1.2 Antibiotic Interpretation SANDHYA Status Aerobe ID + Suscept Meropenem S F Aerobe ID + Suscept Organism: Gram negative jeffery : O:GNR Isolated O:KLEBPN Isolated Organism: 1.2 Antibiotic Interpretation SANDHYA Status Aerobe ID + Suscept Tetracycline S F Aerobe ID + Suscept Organism: Gram negative jeffery : O:GNR Isolated O:KLEBPN Isolated Organism: 1.2 Antibiotic Interpretation SANDHYA Status Aerobe ID + Suscept Tobramycin S F Aerobe ID + Suscept Organism: Gram negative jeffery : O:GNR Isolated O:KLEBPN Isolated Organism: 1.2 Antibiotic Interpretation SANDHYA Status Aerobe ID + Suscept Trimethoprim/Sulfame thoxa zole S F Aerobe ID + Suscept Organism: Gram negative jeffery : O:GNR Isolated O:KLEBPN Isolated Organism: 1.2 Antibiotic Interpretation SANDHYA Status Aerobe ID + Suscept Piperacillin/Tazobac mcmanus S F Aerobe ID + Suscept Organism: Gram negative jeffery : O:GNR Isolated O:KLEBPN Isolated Organism: 1.2 Antibiotic Interpretation SANDHYA Status Performing Lab: see note LC - [facility] LB 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 CBC AUTO DIFF Reviewed date:08/29/2024 05:13:55 PM Interpretation: Performing Lab: Notes/Report: [facility] , White Blood Count 5.8 4.0-11.0 10 3/uL Red Blood Count 3.55 4.20-5.40 10 6/uL Hemoglobin 10.9 12.0-16.0 g/dL Hematocrit 32.5 36.0-48.0 % Mean Corpuscular Volume 91.5 81.0-99.0 fL Mean Corpuscular Hemoglobin 30.7 26.7-34.0 pg Mean Corpuscular HGB Conc 33.5 29.9-35.2 g/dL Red Cell Distribution Width 13.9 11.0-15.0 % Platelet Count 227 150-450 10 3/uL Mean Platelet Volume 10.2 9.5-13.5 fL Neutrophils Percent Auto 60.6 43.0-75.0 % Lymphocytes Percent Auto 26.5 20.5-60.0 % Monocytes Percent Auto 10.2 1.7-12.0 % Eosinophils Percent Auto 1.2 0.9-7.0 % Basophils Percent Auto 1.2 0.2-2.0 % Immature Granulocytes Pct Auto 0.3 0.0-0.5 % Neutrophils Absolute Auto 3.5 1.4-6.5 10 3/uL Lymphocytes Absolute Auto 1.5 1.2-3.8 10 3/uL Monocytes Absolute Auto 0.6 0.3-0.8 10 3/uL Eosinophils Absolute Auto 0.1 0.0-0.7 10 3/uL Basophils Absolute Auto 0.1 0.0-0.1 10 3/uL Immature Granulocytes Abs Auto 0.02 0.00-0.03 10 3/uL Performing Lab: see note ML - [facility] LB MAGNESIUM Reviewed date:08/29/2024 05:13:55 PM Interpretation: Performing Lab: Notes/Report: [facility] , Magnesium 1.7 1.8-2.4 mg/dL Performing Lab: see note ML - [facility] LB PHOSPHORUS Reviewed date:08/29/2024 05:13:55 PM Interpretation: Performing Lab: Notes/Report: [facility] , Phosphorus 2.8 2.6-4.7 mg/dL Performing Lab: see note - [facility] PROF 14(COMP METB) Reviewed date:08/29/2024 05:13:56 PM Interpretation: Performing Lab: Notes/Report: [facility] , Sodium 144 136-145 mmol/L Potassium 3.6 3.5-5.1 mmol/L Chloride 111 98-107 mmol/L Carbon Dioxide 23.2 21.0-32.0 mmol/L Anion Gap 13.4 Glucose 85 74-106 mg/dL Blood Urea Nitrogen 6.0 7.0-18.0 mg/dL Creatinine 0.52 0.55-1.02 mg/dL Estimated GFR ( [place] >60 >=60 mL/min/1.73m 2 Estimated GFR (Non- Caroline >60 >=60 mL/min/1.73m 2 BUN Creatinine Ratio 11.5 Calcium 7.9 8.5-10.1 mg/dL Bilirubin Total 0.4 0.2-1.0 mg/dL Aspartate Amino Transferase 17 15-37 U/L Alanine Aminotransferase 12 14-59 U/L Alkaline Phosphatase 82 46-116 U/L Total Protein 5.4 6.4-8.2 g/dL Albumin Level 2.3 3.4-5.0 g/dL Globulin 3.1 Albumin Globulin Ratio 0.7 Performing Lab: see note ML - The [facility] ECG 12 lead Reviewed date:08/30/2024 05:17:51 PM Interpretation: Performing Lab: Notes/Report: Source Facility: [facility]-[address] [place] [address] [place] [address] Electrocardiograph Report Signed Patient: JUAN GARCIA MR#: [id number] : 1990 Acct:[id number] Age/Sex: 34 / F ADM Date: 08/28/24 Loc: [place] 218-[address]: Kal Wilson M.D. Ordering Physician: Kal Wilson M.D. 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 Signed By: 08/30/24 1330 DD/ 0528 TD/TT: Screen Handler: [place] [address] Electrocardiograph Report Signed Patient: JUAN GARCIA MR#: [id number] : 1990 Acct:[id number] Age/Sex: 34 / F ADM Date: 08/28/24 Loc: [place] 218-[address]: Kal Wilson M.D. Ordering Physician: Kal Wilson M.D. 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 Signed By: 08/30/24 1330 DD/ 0528 TD/TT: Screen Handler: Blood Culture 1 Reviewed date:09/04/2024 07:21:01 PM Interpretation: Performing Lab: Notes/Report: LEFT UPPER ARM [facility] , Blood Culture 1 See Below For Report Blood Culture 1 NG5D NO GROWTH AT 5 DAYS.^NO GROWTH AT 5 DAYS. Performing Lab: see note - [facility] LB Blood Culture 2 Reviewed date:09/04/2024 07:21:01 PM Interpretation: Performing Lab: Notes/Report: [place] LINE [facility] , Blood Culture 2 See Below For Report Blood Culture 2 NG5D NO GROWTH AT 5 DAYS.^NO GROWTH AT 5 DAYS. Performing Lab: see note - [facility] LB MAGNESIUM Reviewed date:08/31/2024 05:12:17 PM Interpretation: Performing Lab: Notes/Report: [facility] , Magnesium 1.9 1.8-2.4 mg/dL Performing Lab: see note [facility] LB PROF CHEM 8 (BAS METB) Reviewed date:08/31/2024 05:12:17 PM Interpretation: Performing Lab: Notes/Report: [facility] , Sodium 148 136-145 mmol/L Potassium 3.5 3.5-5.1 mmol/L Chloride 115 98-107 mmol/L Carbon Dioxide 22.8 21.0-32.0 mmol/L Anion Gap 13.7 Glucose 89 74-106 mg/dL Blood Urea Nitrogen 3.0 7.0-18.0 mg/dL Creatinine 0.51 0.55-1.02 mg/dL Estimated GFR ( [place] >60 >=60 mL/min/1.73m 2 Estimated GFR (Non- Caroline >60 >=60 mL/min/1.73m 2 BUN Creatinine Ratio 5.9 Calcium 8.2 8.5-10.1 mg/dL Performing Lab: see note - [facility] LB CBC no Diff (Hemogram) Reviewed date:08/31/2024 05:12:17 PM Interpretation: Performing Lab: Notes/Report: [facility] , White Blood Count 3.3 4.0-11.0 10 3/uL Red Blood Count 3.38 4.20-5.40 10 6/uL Hemoglobin 10.1 12.0-16.0 g/dL Hematocrit 31.2 36.0-48.0 % Mean Corpuscular Volume 92.3 81.0-99.0 fL Mean Corpuscular Hemoglobin 29.9 26.7-34.0 pg Mean Corpuscular HGB Conc 32.4 29.9-35.2 g/dL Red Cell Distribution Width 13.7 11.0-15.0 % Platelet Count 210 150-450 10 3/uL Mean Platelet Volume 10.8 9.5-13.5 fL Performing Lab: see note - [facility] HCG Qualitative* Reviewed date:08/31/2024 05:12:17 PM Interpretation: Performing Lab: Notes/Report: [facility] Qualitative NEGATIVE NEGATIVE Performing Lab: see note - [facility] CA echo doppler complete Reviewed date:09/04/2024 02:45:30 PM Interpretation: Performing Lab: Notes/Report: Source Facility: [place] [address] Cardiology Report Signed Patient: JUAN GARCIA MR#: [id number] : 1990 Acct:[id number] Age/Sex: 34 / F ADM Date: 08/28/24 Loc: [place] 218-[address]: Kal Wilson M.D. Ordering Physician: Kal Wilson M.D. Date of Service: 09/01/24 Procedure(s): CA echo doppler complete Accession Number(s): [id number] cc: Britt Alas M.D.; Kal Wilson M.D. Patient Name: JUAN GARCIA MR#: [id number] : 1990 Exam Date: 09/01/2024 Ordering Doctor: KAL WILSON ECHOCARDIOGRAM REPORT PROCEDURE: CA ECHO DOPPLER COMPLETE INDICATIONS: bacteremia r/o endocarditis COMPARISON: None. DESCRIPTION: COMPLETE ECHOCARDIOGRAM Real-time transthoracic echocardiography with 2D, M-mode, spectral and color flow Doppler performed. QUALITY: Technical quality was good. LEFT VENTRICLE: Normal chamber size. Normal left ventricular wall thickness. LV EF: Normal left ventricle systolic function without wall motion abnormalities, ejection fraction around 55 to 60% DIASTOLIC: Normal diastolic function. ATRIAL SEPTUM: Appears intact LEFT ATRIUM: Normal chamber size. RIGHT ATRIUM: Normal chamber size. RIGHT VENTRICLE: Normal chamber size. Normal right ventricular systolic function. TRICUSPID VALVE:Normal mobility and thickness. No vegetations are present. No stenosis with trivial regurgitation. No evidence of pulmonary hypertension.RVSP 24mmHg. No vegetations noted on tricuspid valve MITRAL VALVE: Normal mobility and thickness. No vegetations are present. No evidence of mitral valve stenosis. There is no mitral annular calcification. Trivial mitral regurgitation. AORTIC VALVE: Normal trileaflet appearance. No visible sclerosis. Normal leaflet mobility. No vegetations are present. No evidence of aortic valve stenosis. Trivial aortic regurgitation. AORTIC ROOT: Normal diameter and appearance. PULMONIC VALVE:Normal thickness and mobility. No stenosis. No regurgitation. No vegetations are present. PERICARDIUM: Trivial pericardial effusion. IVC: Collapes with inspirations. Normal size. PLEURA: CONCLUSION: Normal left ventricular size, wall thickness, and systolic function without wall motion abnormalities, ejection fraction 60% Normal left ventricle diastolic function Normal right ventricular size and systolic function Normal right-sided pressures No significant valvular abnormalities No obvious vegetations on any of the cardiac valves Trivial pericardial effusion Adult Echocardiography Procedure Report Left Ventricle LVEDD (3.7 - 5.6 cm): 4.62 cm LVESD (2.2 - 4.0 cm): 2.99 cm LVIVS thickness (0.6 - 1.2 cm): 0.80 cm LVPW thickness (0.5 - 1.0 cm): 0.96 cm e': 0.14 m/s E - e': 5.28 LVOT Max Gradient: 6.21 mm[Hg] LVOT Area (cm2): 1.25 m/s Peak Velocity (LVOT): 1.25 m/s Mean Velocity (LVOT): 0.84 m/s LVOT Diameter 2.15 cm Left Ventricular Ejection Fraction: Left Atrium LA Volume Index (2D A2C): 30.24 ml/m2 Left Atrium Systolic Dimension: 4.00 cm Mitral Valve MV E to A Ratio: 1.48, 1.34 MV Max Gradient: MV Mean Gradient: Mitral Valve A-Wave Peak Velocity: 0.54 m/s Mitral Valve E-Wave Peak Velocity: 0.76 m/s Cardiovascular Orifice Area: Right Ventricle RV Internal Diastolic Dimension: 3.88 cm Aorta AO Root Diam: 2.81 cm Ascending Ao Diam: 2.77 cm Aortic Valve AoV Area (Peak Manan): 3.68 cm2, 3.63 cm2 AoV Area (VTI): 3.35 cm2, 3.28 cm2 Deceleration Rush: Pressure Half-Time: Peak Velocity(Antegrade Flow): 1.25 m/s, 1.21 m/s Peak Gradient(Antegrade Flow): 6.21 mm[Hg], 5.86 mm[Hg] Mean Velocity(Antegrade Flow): 0.87 m/s, 0.84 m/s Mean Gradient(Antegrade Flow): 3.48 mm[Hg], 3.24 mm[Hg] Velocity Time Integral: 25.63 cm, 24.64 cm Tricuspid Valve Peak Velocity (Regurgitant Flow): 2.30 m/s, 2.07 m/s Peak Velocity: Pulmonic Valve Mean Gradient: 2.00 mm[Hg], 2.11 mm[Hg] Mean Velocity: 0.66 m/s, 0.68 m/s Peak Velocity: 0.95 m/s Peak Gradient: 3.51 mm[Hg], 3.73 mm[Hg] Right Atrium Right Atrium Systolic Pressure: 40.60 ml, 40.60 ml Dictated by: Emily Moya MD on 09/03/2024 at 18:20 Approved by: Emily Moya MD on 09/03/2024 at 18:25 Dictated By: Emily Moya M.D. Signed By: 09/03/241826 DD/ 24 TD/TT: Screen Handler: [place] [address] Cardiology Report Signed Patient: JUAN GARCIA MR#: [id number] : 1990 Acct:[id number] Age/Sex: 34 / F ADM Date: 08/28/24 Loc: [place] 218-[address]: Kal Wilson M.D. Ordering Physician: Kal Wilson M.D. Date of Service: 09/01/24 Procedure(s): CA ech o doppler complete Accession Number(s): [id number] cc: Britt Alas M.D. ; Kal Wilson M.D. Patient Name: JUAN GARCIA MR#: [id number] : 1990 Exam Date: 09/01/2024 Ordering Doctor: SHAJI WILSON ECHOCARDIOGRAM REPORT PROCEDURE: CA ECHO DOPPLER COMPLETE INDICATIONS: bactere april r/o endocarditis COMPARISON: None. DESCRIPTION: COMPLET E ECHOCARDIOGRAM Real-time transthoracic echocardiography wit h 2D, M-mode, spectral and color flow Doppler performed. QUALITY: Technical quality was good. LEFT VENTRICLE: Norm al chamber size. Normal left ventricular wall thickness. LV EF: Normal left ventricle systolic function without wall motion abnormalities, eject ion fraction around 55 to 60% DIASTOLIC: Normal diastolic function. ATRIAL SEPTUM: Appea rs intact LEFT ATRIUM: Normal chamber size. RIGHT ATRIUM: Normal chamber size. RIGHT VENTRICLE: Nor mal chamber size. Normal right ventricular systolic function. TRICUSPID VALVE:Norm al mobility and thickness. No vegetations are present. No stenosis with trivia l regurgitation. No evidence of pulmonary hypertension.RVSP 24 mmHg. No vegetations noted on tricuspid valve MITRAL VALVE: Normal mobility and thickness. No vegetations are present. No evidence of andrey l valve stenosis. There is no mitral annular calcification. Trivi al mitral regurgitation. AORTIC VALVE: Normal trileaflet appearance. No visible sclerosis. Normal leaflet mobility. No vegetations are present. No evidence of aortic valve stenosis. Trivial ao rtic regurgitation. AORTIC ROOT: Normal diameter and appearance. PULMONIC VALVE:Nancy l thickness and mobility. No stenosis. No regurgitation. No vegetations are present. PERICARDIUM: Trivial pericardial effusion. IVC: Collapes with inspirations. Normal size. PLEURA: CONCLUSION: Normal left ventricu lar size, wall thickness, and systolic function without wall motion abnormalities, ejection fraction 60% Normal left ventricl e diastolic function Normal right ventric ular size and systolic function Normal right-sided pressures No significant valvu lar abnormalities No obvious vegetatio ns on any of the cardiac valves Trivial pericardial effusion Adult Echocardiograp hy Procedure Report Left Ventricle LVEDD (3.7 - 5.6 cm) : 4.62 cm LVESD (2.2 - 4.0 cm) : 2.99 cm LVIVS thickness (0.6 - 1.2 cm): 0.80 cm LVPW thickness (0.5 - 1.0 cm): 0.96 cm e': 0.14 m/s E - e': 5.28 LVOT Max Gradient: 6 .21 mm[Hg] LVOT Area (cm2): 1.25 m/s Peak Velocity (LVOT) : 1.25 m/s Mean Velocity (LVOT) : 0.84 m/s LVOT Diameter 2.15 cm Left Ventricular Eje ction Fraction: Left Atrium LA Volume Index (2D A2C): 30.24 ml/m2 Left Atrium Systolic Dimension: 4.00 cm Mitral Valve MV E to A Ratio: 1.4 8, 1.34 MV Max Gradient: MV Mean Gradient: Mitral Valve A-Wave Peak Velocity: 0.54 m/s Mitral Valve E-Wave Peak Velocity: 0.76 m/s Cardiovascular Orifi ce Area: Right Ventricle RV Internal Diastoli c Dimension: 3.88 cm Aorta AO Root Diam: 2.81 cm Ascending Ao Diam: 2 .77 cm Aortic Valve AoV Area (Peak Manan): 3.68 cm2, 3.63 cm2 AoV Area (VTI): 3.35 cm2, 3.28 cm2 Deceleration Rush: Pressure Half-Time: Peak Velocity(Antegr rolly Flow): 1.25 m/s, 1.21 m/s Peak Gradient(Antegr rolly Flow): 6.21 mm[Hg], 5.86 mm[Hg] Mean Velocity(Antegr rolly Flow): 0.87 m/s, 0.84 m/s Mean Gradient(Antegr rolly Flow): 3.48 mm[Hg], 3.24 mm[Hg] Velocity Time Integr al: 25.63 cm, 24.64 cm Tricuspid Valve Peak Velocity (Regurgitant Flow): 2.30 m/s, 2.07 m/s Peak Velocity: Pulmonic Valve Mean Gradient: 2.00 mm[Hg], 2.11 mm[Hg] Mean Velocity: 0.66 m/s, 0.68 m/s Peak Velocity: 0.95 m/s Peak Gradient: 3.51 mm[Hg], 3.73 mm[Hg] Right Atrium Right Atrium Systoli c Pressure: 40.60 ml, 40.60 ml Dictated by: Emily Moya MD on 09/03/2024 at 18:20 Approved by: Emily Moya MD on 09/03/2024 at 18:25 Dictated By: Emily Moya M.D. Signed By: 09/03/241826 DD/ 24 TD/TT: Screen Handler: Reason For Referral Diagnosis 1 Hypoglycemia (E16.2) Referral Organization [facility] Referring Provider First Name Brandyn Referring Provider Last Name Evette Referring Provider Speciality [facility] Referred Provider Que Draper Referred Provider Specialty Endocrinolog y Referral Priority Routine Medications Medication SIG (Take, Route, Frequency, Duration) Notes Start Date End Date Status FreeStyle Hunter 3 Sensor Use to monitor glucose multiple times daily DX Diabetes with hypoglycemia episodes- change once every 10 days for 30 days 10/14/2023 Active [employer] ServicesTouch Ultra 2 w/Device USE TO MONITOR BLOOD GLUCOSE LEVELS DAILY for 30 Active Prucalopride Succinate 2 MG 1 tablet Orally Once a day for 30 days Active Hydrocortisone 10 MG 1 tablet with food or milk Orally once a day PRN- Injection Active Remeron 30 MG 1.5 tablet at bedtime Orally Once a day 06/23/2023 Active hydrOXYzine HCl 50 MG 1 tablet Orally On ce a day at bedtime for 30 days Active Test Strips - Test sugar Once daily for 90 days Dx: E11.9 03/22/2024 Active Ondansetron 4 MG 1-2 tablet on the tongue and allow to dissolve Orally q4h for 30 days As needed 09/29/2023 Active Diflucan 100 MG 1 tablet Orally daily for 10 days 09/14/2024 Active HYDROcodone-Acetaminoph en 5-325 MG 1 - 2 tablet as needed - max 6/day Orally every 6 hrs for 14 days K56.600 K56.600 09/15/2024 Active fentaNYL 25 MCG/HR 1 patch to skin Transdermal Q3d for 30 days 08/15/2024 Active Methocarbamol 500 MG TAKE 1.5 TABLETS BY MOUTH EVERY 6 HRS FOR 30 DAYS for 30 Active Ferrous Sulfate 325 (65 Fe) MG 1 tablet Orally weekly for 30 days 07/19/2023 Active Metoclopramide HCl 10 MG 1 tablet before meals Orally achs for 30 days 08/07/2024 Active FreeStyle Hunter 3 [place] Use to monitor glucose levels multiple times daily DX Diabetes with hypoglycemic episodes for 365 days 10/14/2023 Active Lancets 30G - Use 1 lancet E11.9 once daily for 90 03/22/2024 Active Topamax 100 MG 1 tablet Orally BID for 30 days 06/23/2023 Active Levothyroxine Sodium 75 MCG 1 tablet in the morning on an empty stomach Orally Once a day for 30 days 06/23/2023 Active traMADol HCl 50 MG 1 tablet as needed Orally qid for 30 days As needed PRN 09/04/2024 Active Togsnpjiad-MDBE-Afdtzhn e 50-325-40 MG TAKE 1 TABLET BY MOUTH EVERY 4 HOURS NEEDED FOR HEADACHE for 4 PRN 04/21/2024 Active Lexapro 20 MG 1 tablet Orally Once a day 06/23/2023 Active traZODone HCl 100 MG 1 tablet Orally bedtime 11/18/2023 Active Compazine 10 MG 1 tablet as needed Orally Three times a day 12/22/2023 Active Liothyronine Sodium 5 MCG 1 tablet [...] Status W/U Status Risk Notes Problem Gastroparesis (787864918) Gastroparesis (K31.84) Active confirmed Problem Postgastric surgery syndrome (52415180) 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) Active confirmed Problem Asthma (893110789) Asthma (J45.909) Active conf irmed Problem Gastroesophageal reflux disease (678015934) GERD (gastroesophageal reflux disease) (K21.9) Active confirmed Problem Hypothyroidism (28190204) Hypothyroidism (E03.9) Active confirmed Problem Anxiety (30040597) Anxiety (F41.9) Active confi rmed Problem Migraine (79479134) Migraine (G43.909) Active confirmed Problem Irritable bowel syndrome (40659546) IBS (irritable bowel syndrome) (K58.9) Active confirmed Problem Generalized anxiety disorder (36847331) EDWAR (generalized anxiety disorder) (F41.1) Active confirmed Problem Lumbar radiculopathy (108566514) Lumbar radiculopathy (M54.16) Active confirmed Problem Allergic conjunctivitis (328434507) Allergic conjunctivitis (H10.10) Active confirmed Problem Acquired hypothyroidism (983478275) Acquired hypothyroidism (E03.9) Active confirmed Problem Hypoglycemia (434883520) Hypoglycemia (E16.2) Active confirmed Problem Anxiety disorder (421858414) Anxiety disorder (F41.9) Active confirmed Problem Neutropenia (397606298) Neutropenia (D70.9) Active confirmed Problem Sepsis (62619318) Sepsis (A41.9) Active confirm ed Problem Leukocytosis (404934397) Elevated white blood cell count (D72.829) Active confirmed Problem Edema (343498854) Facial edema (R60.0) Active confirmed Problem Gastrostomy present (920073261) PEG (percutaneous endoscopic gastrostomy) status (Z93.1) Active confirmed Problem Severe protein calorie malnutrition (227136840) Severe protein-calorie malnutrition (E43) Active confirmed Problem Disorder of endocrine system (361262905) 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.9) Active confirmed Problem Malnutrition of moderate degree ([place]axter: 60% to less than 75% of standard weight) (75644613) Moderate malnutrition (E44.0) Active confirmed Problem Gastrostomy present (652944081) Feeding by G-tube (Z93.1) Active confirmed Problem Gastrostomy present (893369094) Gastrostomy in place (Z93.1) Active confirmed Problem Jejunostomy tube, device (physical object) (570844226) Jejunostomy tube present (Z93.4) Active confirmed Problem [id number] Partial intestinal obstruction, unspecified as to cause (K56.600) Active confirmed Vital Signs Blood pressure diastolic 84 mm Hg 09/11/2024 Height 66 in 09/11/2024 Blood pressure systolic 130 mm Hg 09/11/2024 Weight 176 lbs 09/11/2024 BMI 28.4 kg/m2 09/11/2024 Encounters Encounter Location Date Provider Diagnosis [id number] [place] [address] 01/10/2024 Brandyn Hoy GERD (gastroesophage al reflux disease) K21.9 ; Hypothyroidism E03.9 ; Anxiety F41.9 and IBS (irritable bowel syndrome) K58.9 [facility] [address] [place] [address] 03/21/2024 Brandyn Hoy GERD (gastroesophage al reflux disease) K21.9 and Hypoglycemia E16.2 [facility] [address] [place] [address] 11/18/2023 Brandyn Hoy Asthma J45.909 ; KEZIA D (gastroesophageal reflux disease) K21.9 ; IBS (irritable bowel syndrome) K58.9 and Hypoglycemia E16.2 [facility] [address] [place] [address] 01/03/2024 Brandyn Hoy GERD (gastroesophage al reflux disease) K21.9 ; Severe protein-calorie malnutrition E43 ; Hypothyroidism E03.9 and Partial intestinal obstruction, unspecified as to cause K56.600 [facility] [address] [place] [address] 04/10/2024 Brandyn Hoy Hypoglycemia E16.[address] [address] 04/19/2024 Brandyn Hoy Hypoglycemia E16.[address] [address] 08/07/2024 Brandyn Hoy GERD (gastroesophage al reflux disease) K21.9 ; Severe protein-calorie malnutrition E43 ; PEG (percutaneous endoscopic gastrostomy) status Z93.1 and Acquired hypothyroidism E03.9 [facility] [address] [place] [address] 08/22/2024 Brandyn Hoy Gram negative sepsis A41.[address] [address] 09/11/2024 Brandyn Hoy Sepsis A41.9 [facility] [address] [place] [address] 09/29/2023 Brandyn Hoy [facility] [address] [place] [address] 09/29/2023 Brandyn Hoy [facility] [address] [place] [address] 10/13/2023 Brandyn Hoy IBS (irritable bowel syndrome) K58.9 and Partial intestinal obstruction, unspecified as to cause K56.600 [facility] [address] [place] [address] 10/14/2023 Brandyn Rosenthaly [facility] [address] [place] [address] 10/19/2023 Brandyn Hoy Partial intestinal obstruction, unspecified as to cause K56.600 [facility] [address] [facility] [place] [address] 10/19/2023 Brandyn katarina [facility] [address] [facility] [place] [address] 10/19/2023 Brandyn Alas [facility] [address] [facility] [place] [address] 10/19/2023 Brandyn Alas [facility] [address] [facility] [place] [address] 10/27/2023 Brandyn Alas [facility] [address] [facility] [place] [address] 10/28/2023 Brandyn katarina [facility] [address] [facility] [place] [address] 11/02/2023 Brandyn Alas [facility] [address] [facility] [place] [address] 11/03/2023 Brandyn Alas [facility] [address] [place] [address] 11/04/2023 Brandyn Hoy Intractable abdomina l pain R10.9 and Asthma J45.909 [facility] [address] [place] [address] 11/04/2023 Brandyn Hoy Partial intestinal obstruction, unspecified as to cause K56.600 [facility] [address] [place] [address] 11/04/2023 Brandyn Alas [facility] [address] [facility] [place] [address] 11/05/2023 Brandyn Rosenthaly [facility] [address] [facility] [place] [address] 11/08/2023 Brandyn Hoy [facility] [address] [facility] [place] [address] 11/09/2023 Brandyn Rosenthaly Partial intestinal obstruction, unspecified as to cause K56.600 [facility] [address] [facility] [place] [address] 11/09/2023 Brandyn Rosenthaly [facility] [address] [facility] [place] [address] 11/22/2023 Brandyn Rosenthaly Allergic conjunctivi tis H10.10 [facility] [address] [facility] [place] [address] 11/23/2023 Brandyn Alas Jejunostomy tube pre sent Z93.4 [facility] [address] [facility] [place] [address] 11/26/2023 Brandyn Alas Low testosterone lev el in female R79.89 [facility] [address] [facility] [place] [address] 11/29/2023 Brandyn Rosenthaly [facility] [address] [facility] [place] [address] 11/30/2023 Brandyn Alas [facility] [address] [facility] [place] [address] 11/30/2023 Brandyn Rosenthaly Intractable abdomina l pain R10.9 and Abdominal pain R10.9 [facility] [address] [facility] [place] [address] 12/06/2023 Brandyn Rosenthaly [facility] [address] [facility] [place] [address] 12/06/2023 Brandyn Rosenthaly [facility] [address] [facility] [place] [address] 12/20/2023 Brandyn Rosenthaly [facility] [address] [facility] [place] [address] 12/22/2023 Brandyn Rosenthaly [facility] [address] [place] [address] 12/23/2023 Brandyn Alas Testosterone deficie ncy E29.1 [facility] [address] [place] [address] 12/27/2023 Brandyn Galoy [facility] [address] [facility] [place] [address] 12/30/2023 Brandyn Rosenthaly [facility] [address] [facility] [place] [place] [address] 12/31/2023 Brandyn Rosenthaly [facility] [address] [place] [address] 01/03/2024 Brandyn Rosenthaly [facility] [address] [facility] [place] [place] [address] 01/03/2024 Brandyn Alas Partial intestinal obstruction, unspecified as to cause K56.600 [facility] [address] [place] [address] 01/05/2024 Brandyn Rosenthaly [facility] [address] [place] [address] 01/10/2024 Brandyn Alas GERD (gastroesophage al reflux disease) K21.9 [facility] [address] [facility] [place] [address] 01/11/2024 Brandyn Alas [facility] [address] [facility] [place] [place] [address] 01/18/2024 Brandyn Rosenthaly [facility] [address] [place] [address] 01/18/2024 Brandyn Alas Anxiety F41.9 [facility] [address] [place] [address] 01/19/2024 Brandyn Rosenthaly [facility] [address] [facility] [place] [place] [address] 01/26/2024 Brandyn Rosenthaly [facility] [address] [place] [address] 01/26/2024 Brandyn Hoy GERD (gastroesophage al reflux disease) K21.9 [facility] [address] [facility] [address] 01/31/2024 Brandyn Hoy [facility] [address] [facility] [address] 01/31/2024 Brandyn Hoy [facility] [address] [place] [address] 02/02/2024 Brandyn Hoy [facility] [address] [facility] [place] [address] 02/04/2024 Brandyn y [facility] [address] [facility] [address] 02/04/2024 Brandyn Hoy Partial intestinal obstruction, unspecified as to cause K56.600 [facility] [address] [facility] [place] [address] 02/07/2024 Brandyn Hoy GERD (gastroesophage al reflux disease) K21.9 [facility] [address] [facility] [address] 02/07/2024 Brandyn Hoy [facility] [address] [facility] [place] [address] 02/11/2024 Brandyn Hoy [facility] [address] [facility] [place] [address] 02/14/2024 Brandyn Hoy [facility] [address] [facility] [place] [address] 02/21/2024 Brandyn Hoy GERD (gastroesophage al reflux disease) K21.9 [facility] [address] [facility] [address] 03/03/2024 Brandyn Hoy GERD (gastroesophage al reflux disease) K21.9 [facility] [address] [place] [address] 03/03/2024 Brandyn Hoy [facility] [address] [place] [address] 03/06/2024 Brandyn Hoy Partial intestinal obstruction, unspecified as to cause K56.600 [facility] [address] [facility] [place] [address] 03/06/2024 Brandyn Hoy [facility] [address] [facility] [address] 03/13/2024 Brandyn Hoy [facility] [address] [facility] [address] 03/13/2024 Brandyn Hoy GERD (gastroesophage al reflux disease) K21.9 [facility] [address] [facility] [address] 03/21/2024 Brandyn Hoy [facility] [address] [facility] [address] 03/22/2024 Brandyn Hoy [facility] [address] [facility] [place] [address] 03/24/2024 Brandyn Hoy GERD (gastroesophage al reflux disease) K21.9 [facility] [address] [facility] [place] [address] 03/27/2024 Brandyn Hoy GERD (gastroesophage al reflux disease) K21.9 [facility] [address] [facility] [address] 03/29/2024 Brandyn Hoy [facility] [address] [facility] [place] [address] 2024 Brandyn Hoy Partial intestinal obstruction, unspecified as to cause K56.600 [facility] [address] [facility] [address] 04/04/2024 Brandyn Hoy Partial intestinal obstruction, unspecified as to cause K56.600 [facility] [address] [facility] [place] [address] 04/04/2024 Brandyn Hoy Partial intestinal obstruction, unspecified as to cause K56.600 [facility] [address] [facility] [address] 04/06/2024 Brandyn Hoy Partial intestinal obstruction, unspecified as to cause K56.600 [facility] [address] [facility] [place] [address] 04/07/2024 Brandyn Hoy GERD (gastroesophage al reflux disease) K21.9 [facility] [address] [facility] [address] 04/10/2024 Brandyn Hoy [facility] [address] [facility] [place] [address] 04/13/2024 Brandyn Hoy [facility] [address] [facility] [address] 04/18/2024 Brandyn Hoy [facility] [address] [facility] [address] 04/18/2024 Brandyn Hoy Hypoglycemia E16.2 [facility] [address] [facility] [address] 04/21/2024 Brandyn Hoy GERD (gastroesophage al reflux disease) K21.9 [facility] [address] [facility] [place] [address] 04/21/2024 Brandyn Hoy [facility] [address] [facility] [place] [address] 04/27/2024 Brandyn Hoy Partial intestinal obstruction, unspecified as to cause K56.600 [facility] [address] [facility] [place] [address] 04/28/2024 Brandyn Hoy [facility] [address] [facility] [place] [address] 05/02/2024 Brandyn Hoy [facility] [address] [facility] [place] [address] 05/04/2024 Brandyn Hoy GERD (gastroesophage al reflux disease) K21.9 [facility] [address] [facility] [place] [address] 05/10/2024 Brandyn Hoy [facility] [address] [place] [address] 05/17/2024 Brandyn Hoy GERD (gastroesophage al reflux disease) K21.9 [facility] [address] [place] [address] 05/22/2024 Brandyn Hoy [facility] [address] [facility] [address] 05/26/2024 Brandyn Hoy Partial intestinal obstruction, unspecified as to cause K56.600 [facility] [address] [place] [address] 05/30/2024 Brandyn Hoy GERD (gastroesophage al reflux disease) K21.9 [facility] [address] [place] [address] 06/05/2024 Brandyn Hoy [facility] [address] [place] [address] 06/12/2024 Brandyn Hoy GERD (gastroesophage al reflux disease) K21.9 [facility] [address] [place] [address] 06/23/2024 Brandyn Hoy Partial intestinal obstruction, unspecified as to cause K56.600 and GERD (gastroesophageal reflux disease) K21.9 [facility] [address] [place] [address] 07/03/2024 Brandyn Hoy [facility] [address] [place] [address] 07/06/2024 Brandyn Hoy [facility] [address] [place] [address] 07/07/2024 Brandyn Hoy GERD (gastroesophage al reflux disease) K21.9 [facility] [address] [place] [address] 07/21/2024 Brandyn Hoy Partial intestinal obstruction, unspecified as to cause K56.600 and GERD (gastroesophageal reflux disease) K21.9 [facility] [address] [place] [address] 07/21/2024 Brandyn Hoy [facility] [address] [facility] [place] [address] 07/31/2024 Brandyn Hoy [facility] [address] [facility] [place] [address] 08/04/2024 Brandyn Hoy GERD (gastroesophage al reflux disease) K21.9 [facility] [address] [place] [address] 08/09/2024 Brandyn Hoy Elevated white blood cell count D72.829 [facility] [address] [facility] [place] [address] 08/10/2024 Brandyn Hoy [facility] [address] [facility] [place] [address] 08/15/2024 Brandyn Hoy Partial intestinal obstruction, unspecified as to cause K56.600 [facility] [address] [facility] [place] [address] 08/15/2024 Brandyn Hoy [facility] [address] [facility] [address] 08/15/2024 Brandyn Hoy [facility] [address] [place] [address] 08/17/2024 Brandyn Hoy GERD (gastroesophage al reflux disease) K21.9 [facility] [address] [facility] [place] [id number] 08/21/2024 Brandyn Hoy [facility] [address] [place] [address] 08/31/2024 Brandyn Hoy GERD (gastroesophage al reflux disease) K21.9 [facility] [address] [place] [address] 09/04/2024 Brandyn Hoy GERD (gastroesophage al reflux disease) K21.9 [facility] [address] [place] [address] 09/04/2024 Brandyn Hoy [facility] [address] [place] [address] 09/04/2024 Brandyn Hoy [facility] [address] [place] [address] 09/06/2024 Brandyn katarina [facility] [address] [place] [address] 09/14/2024 Brandyn Alas [facility] [address] [place] [address] 09/15/2024 Brandyn Alas GERD (gastroesophage al reflux disease) K21.9 Assessments Encounter Date Diagnosis (ICD Code) Assessment Notes Treatment Notes Treatment Clinical Notes Section Notes 08/22/2024 Gram negative sepsis (ICD-10 - A41.50) 09/11/2024 Sepsis (ICD-10 - A41.9) 10/13/2023 IBS (irritable bowel syndrome) (ICD-10 - [...] unspecified as to cause (ICD-10 - K56.600) 11/18/2023 Asthma (ICD-10 - J45.909) 11/18/2023 GERD [...] 08/07/2024 Severe protein-calorie malnutrition (ICD-10 - E43) 08/04/2024 GERD (gastroesophageal reflux disease) (ICD-10 - K21.9) 08/09/2024 Elevated white blood cell count (ICD-10 - D72.829) 08/15/2024 Partial intestinal obstruction, unspecified as to cause (ICD-10 - K56.600) 08/17/2024 GERD (gastroesophageal reflux disease) (ICD-10 - K21.9) 08/31/2024 GERD (gastroesophageal reflux disease) (ICD-10 - K21.9) 09/04/2024 GERD (gastroesophageal reflux disease) (ICD-10 - K21.9) 09/15/2024 GERD (gastroesophageal reflux disease) (ICD-10 - K21.9) 07/07/2024 GERD (gastroesophageal reflux disease) (ICD-10 - [...] V 11/04/2023 XR KUB 1 VIEW 11/23/2023 Blood Culture 1 09/11/2024 Blood Culture 1 08/22/2024 Blood Culture 2 09/11/2024 Sjogren's Ab, Anti-SS-A/-SS-B 08/03/2023 US abdomen complete 09/05/2023 US abdomen complete 09/06/2023 Insurance Providers Payer Name Payer Address Payer Phone Subscriber Number Group Number Insured Name Patient Relationship to Insured Coverage Start Date Coverage End Date [employer] [place] [employer] [address] [address] [place] [address] [id number] Jose Oldfield Self - patient is the insured Medications Administered Medication Instructions Date of Administration Dosage Notes Ceftriaxone 1 gram 08/23/2023 1 g 1 gram Dexamethasone, 4mg/mL 08/23/2023 12 mg 12 Medical (General) History Medical History History ICD Code IBS (irritable bowel syndrome) K58.9 Anxiety F41.9 Asthma J45.909 GERD (gastroesophageal reflux disease) K 21.9 Migraine G43.909 Hypothyroidism E03.9 Surgical History Surgery Date(Month/Year) DELIVERYx3 Gastric bypass 01/2022 J Tube removal 2024 MALS Surgery 02/2023 CHOLECYSTECTOMY APPENDECTOMY Hospitalization History Reason Date(Month/Year) S[place]20[place] [facility]08 [facility]- malnutrition, DM 06/2023 see above- [facility], [facility] Hypoglycemia/ Bowel Obstruction 02/07
--- OUTSIDE RECORDS SUMMARY | 2024-09-15 16:44 | XMS_ITS | Encounter Summary ---
Author Organization [facility] Address [address] [place] [address] Care Team Providers Care Blood Typer Name Role Phone Antelmo Davey MD Unavailable Deacon Valladares MD Unavailable Shanna June CNP Unavailable [phone] Shanna June CERTIFIED ACTIVITIES DIRECTOR Primary Care Provider [phone] Rachel Foley MD Primary Care Provider [phone] Tj Najera Unavailable [phone] Anna Mendez APRN.[facility] Primary Care Provider Thomas Alas MD Primary Care Provider [phone] Georgina Barkley MD Unavailable [phone] Source Comments In the event this information is protected by the Federal Confidentiality of Alcohol and Drug AbusePatient Records regulations: The Federal rules restrict any use of the information to criminally investigate or prosecute any alcohol or drug abuse patient.[facility] Encounter Details Date Type Department Care Team (Late st Contact Info) Description 03/21/2021 Patient Msg General Surgery [address] [phone] Provider, Ccf Appointment Request Social History Tobacco [...] N ot on file 01/21/2020 Data from: https://www.neighborhoodatlas.medicine.[facility].edu/. Last address used for calculation Not on file 01/21/2020 Education Answer Date Recorded What is the highest level of school you have completed or the highest degree you have received? 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 [address] [place], [place] [id number] HPN / PAGE [phone] 09/25/2024 9:00 AM EDT Infusion Center Hematology/Oncology [address] [place] [address] [place] [address] Hodges dressing and cap change;Labs as needed per patient 09/29/2024 10:15 AM EDT Appointment [facility] Endoscopy - ENDO [address] [place] [address] [place] [address] [place] [address] EGD 10/02/2024 9:00 AM EDT Infusion Center Hematology/Oncology [address] [place] [address] [place] [address] Hodges dressing and cap change;Labs as needed per patient 10/09/2024 9:00 AM EDT Infusion Center Hematology/Oncology [address] [place] [address] [place] [address] Hodgse dressing and cap change;Labs as needed per patient documented as of this encounter Visit Diagnoses Not on filedocumented in this encounter Additional Health Concerns Infection Onset Date Last Indicated Resolved Time COVID-19 Rule-Out 01/29/2022 01/29/2022 01/29/2022 6:59 PM EST COVID-19 Rule-Out 06/06/2023 06/06/2023 06/06/2023 6:19 PM EDT documented as of this encounter Care Teams Blood Typer Relationship Specialty Start Date End Date Shanna June CNP [address] [place] [address] PCP - General Family Medicine 01/31/20 01/18/22 Rachel Foley MD [address] [facility] [place] [address] PCP - General Family Medicine 01/19/22 06/15/22 Anna Mendez, PICKLE PUMPER.CERTIFIED ACTIVITIES DIRECTOR [address] [address] PCP - General 06/16/22 07/29/23 Thomas Alas MD [address] [facility] [place] [address] PCP - General Family Medicine 07/30/23 Antelmo Davey MD [address] [facility] [place] [address] 09/25/19 [place] [address] [place] [address] Consulting General Surgery 09/25/19 Shanna June, BETH [address] [place] [address] Referring Family Medicine 10/19/19 Tj Najera PA [address] [address] Referring Family Medicine 05/13/22 Georgina Barkley MD [address] [place] [address] Home Parenteral Nutrition Provider Gastroenterology 10/14/23 documented as of this encounter
--- OUTSIDE RECORDS SUMMARY | 2024-09-15 16:44 | XMS_ITS | Encounter Summary ---
Author Organization [facility] Address [address] [place] [address] Care Team Providers Care Dental Insurance Biller Name Role Phone Antelmo Davey MD Unavailable Deacon Valladares MD Unavailable [phone] Shanna June [facility] Unavailable [phone] Tj Najera Unavailable [phone] Anna Mendez APRN.[facility] Primary Care Provider Thomas Alas MD Primary Care Provider [phone] Georgina Barkley MD Unavailable [phone] Source Comments In the event this information is protected by the Federal Confidentiality of Alcohol and Drug AbusePatient Records regulations: The Federal rules restrict any use of the information to criminally investigate or prosecute any alcohol or drug abuse patient.[facility] Encounter Details Date Type Department Care Team (Late st Contact Info) Description 04/29/2023 Patient Msg Ambulatory Surgery [address] [place] [address] Provider, Ccf Upper endoscopy instructions Social History Tobacco Use Types Packs/Day [...] How often do you attend chur or christianity services? 1 to 4 times per year 10/28/2022 Do you belong to any clubs o r organizations such as christian groups, unions, fraternal or athletic groups, or [...] Answer Date Recorded PHQ-2 score 2 11/12/2022 [facility] of Occupat ional Health - Occupational Stress [...] in a group home (including now)? No 12/06/2022 Area Deprivation Index Answer Date Nayan rded National Score (1-100), lower number is lower ri sk 64 06/17/2022 State Score (1-10), lower number is lower risk 4 06/17/2022 Data from: https://www.neighborhoodatlas.medicine.[facility].edu/. Last address used for calculation [address] 06/17/2022 Education Answer Date Recorded What is the highest level of school you have completed or the highest degree you have received? Master's degree (e.g., MA, MS, Birgit, MEd, REAL ESTATE FINANCIAL ANALYST, IVANIA) 10/15/2019 Comments No Sex and [...] 12:30 PM EDT Infusion Center Hematology/Oncology [address] [place] [address] [place] [address] Hodges dressing and cap change;Labs as needed per patient 09/22/2024 12:30 PM EDT Office Visit Gastroenterology [address] [phone] Reservations Specialist, Hpn [address] [phone] HPN / PAGE [phone] 09/22/2024 1:00 PM EDT Office Visit Gastroenterology [address] [phone] Georgina Barkley MD [facility] [address] [place], [place] [phone] HPN / PAGE [phone] 09/25/2024 9:00 AM EDT Infusion Center Hematology/Oncology [address] [place] [address] [place] [address] Hodges dressing and cap change;Labs as needed per patient 09/29/2024 10:15 AM EDT Appointment [facility] Endoscopy - ENDO [address] [place] [address] [place] [address] [place] [phone] EGD 10/02/2024 9:00 AM EDT Infusion Center Hematology/Oncology [address] [place] [address] [place] [address] Hodges dressing and cap change;Labs as needed per patient 10/09/2024 9:00 AM EDT Infusion Center Hematology/Oncology [address] [place] [address] [place] [address] Hodges dressing and cap change;Labs as needed per patient documented as of this encounter Visit Diagnoses Not on filedocumented in this encounter Additional Health Concerns Infection Onset Date Last Indicated Resolved Time COVID-19 Rule-Out 06/06/2023 06/06/2023 06/06/2023 6:19 PM EDT documented as of this encounter Care Teams Dental Insurance Biller Relationship Specialty Start Date End Date Anna Mendez APRN.ELECTRIC BRAIN WAVE EQUIPMENT MECHANIC [address] [address] PCP - General 06/16/22 07/29/23 Thomas Alas MD [address] [place] [address] PCP - General Family Medicine 07/30/23 Antelmo Davey MD [address] [place] [address] 09/25/19 [place] [address] [facility] [place] [address] Consulting General Surgery 09/25/19 Shanna June CNP [address] [place] [address] Referring Family Medicine 10/19/19 Tj Najera PA [address] [address] Referring Family Medicine 05/13/22 Georgina Barkley MD [address] [place] [address] Home Parenteral Nutrition Provider Gastroenterology 10/14/23 documented as of this encounter
--- OUTSIDE RECORDS SUMMARY | 2024-09-15 16:44 | XMS_ITS | Encounter Summary ---
Author Organization [facility] Address [address] [place] [address] Care Team Providers Care Clay Plant Treater Name Role Phone Antelmo Davey MD Unavailable Deacon Valladares MD Unavailable Shanna June ORCHID TRANSPLANTER Unavailable [phone] Tj Najera Unavailable [phone] nAna Mendez TELE RN.ORCHID TRANSPLANTER Primary Care Provider Thomas Alas MD Primary Care Provider [phone] Georgina Barkley MD Unavailable [phone] Source Comments In the event this information is protected by the Federal Confidentiality of Alcohol and Drug AbusePatient Records regulations: The Federal rules restrict any use of the information to criminally investigate or prosecute any alcohol or drug abuse patient.[facility] Encounter Details Date Type Department Care Team (Late st Contact Info) Description 06/15/2023 Get Medical Advice General Surgery [address] [place], [place] [phone] Breanna Boyer APRN.ORCHID TRANSPLANTER [address] [place] [address] Symptoms Social History Tobacco Use Types Packs/Day Years Used Date Smoking Tobacco: Never Smokeless Tobacco: Never Alcohol Use Standard Drinks/Week Comments Not Currently 0 (1 standard drink = 0.6 oz pur e alcohol) [facility] Utilities Answer Date Recorded In the [...] often do you attend chur ch or worship services? 1 to 4 times per year 10/28/2022 Do you belong to any clubs o r organizations such as voodoo groups, unions, fraternal or athletic groups, or [...] Answer Date Recorded PHQ-2 score 2 06/09/2023 [facility] of Occupat ional Health - [...] is lower risk 4 06/17/2022 Data from: https://www.neighborhoodatlas.medicine.[facility].edu/. Last address used for calculation [address] 06/17/2022 Education Answer Date Recorded What is the highest level of school you have completed or the highest degree you have received? Master's degree (e.g., MA, MS, Birgit, MEd, PHYSICIAN LIAISON, IVANIA) 10/15/2019 Comments No Sex and Gender [...] Contact Info) Description 09/18/2024 12:30 PM EDT [facility] Hematology/Oncology [address] [place] [address] [place] [address] Hodges dressing and cap change;Labs as needed per patient 09/22/2024 12:30 PM EDT Office Visit Gastroenterology [address] [phone] Cemetery Warden, Hpn [address] [place] [address] HPN / PAGE [phone] 09/22/2024 1:00 PM EDT Office Visit Gastroenterology [address] [phone] Georgina Barkley MD [facility] [address] [place], [place] [phone] HPN / PAGE [phone] 09/25/2024 9:00 AM EDT Infusion Center Hematology/Oncology [address] [place] [address] [place] [address] Hodges dressing and cap change;Labs as needed per patient 09/29/2024 10:15 AM EDT Appointment [facility] Endoscopy - ENDO [address] [place] [address] [place] [address] [place] [address] EGD 10/02/2024 9:00 AM EDT Infusion Center Hematology/Oncology [address] [place] [address] Hodges dressing and cap change;Labs as needed per patient 10/09/2024 9:00 AM EDT Infusion Center Hematology/Oncology [address] [place] [address] Hodges dressing and cap change;Labs as needed per patient documented as of this encounter Visit Diagnoses Not on filedocumented in this encounter Care Teams Clay Plant Treater Relationship Specialty Start Date End Date Anna Mendez APRN.ORCHID TRANSPLANTER [address] [address] PCP - General 06/16/22 07/29/23 Thomas Alas MD [address] [place] [address] PCP - General Family Medicine 07/30/23 Antelmo Davey MD [address] [place] [address] 09/25/19 [place] [address] [place] [address] Consulting General Surgery 09/25/19 Shanna June CNP [address] [place] [address] Referring Family Medicine 10/19/19 Tj Najera PA [address] [place] [address] Referring Family Medicine 05/13/22 Georgina Barkley MD [address] [place] [address] Home Parenteral Nutrition Provider Gastroenterology 10/14/23 documented as of this encounter
--- OUTSIDE RECORDS SUMMARY | 2024-09-15 16:44 | XMS_ITS | Encounter Summary ---
Author Organization [facility] Address [address] [place] [address] Care Team Providers Care Lithoduplicator Operator Name Role Phone Antelmo Davey MD Unavailable Deacon Valladares MD Unavailable Shanna June [facility] Unavailable [phone] Tj Najera Unavailable [phone] Anna Mendez APRN.[facility] Primary Care Provider Thomas Alas MD Primary Care Provider [phone] Georgina Barkley MD Unavailable [phone] Source Comments In the event this information is protected by the Federal Confidentiality of Alcohol and Drug AbusePatient Records regulations: The Federal rules restrict any use of the information to criminally investigate or prosecute any alcohol or drug abuse patient.[facility] Encounter Details Date Type Department Care Team (Latest Contact Info) Description 05/12/2023 Get Medical Advice General Surgery [address] [place] [address] [place] [address] [place] [address] Authorization of Medical Release of Records Social History Tobacco Use Types Packs/Day Years [...] How often do you attend chur or taoist services? 1 to 4 times [...] Answer Date Recorded PHQ-2 score 2 11/12/2022 [facility] of Occupat ional Health - Occupational Stress [...] place to sleep or slept in a fdc (including now)? No 12/06/2022 Area Deprivation Index Answer Date Nayan rded National Score (1-100), lower number is lower ri sk 64 06/17/2022 State Score (1-10), lower number is lower risk 4 06/17/2022 Data from: https://www.neighborhoodatlas.medicine.[facility].edu/. Last address used for calculation [id number] [place] [address] [address] 06/17/2022 Education Answer Date Recorded What is the highest level of school you have completed or the highest degree you have received? Master's degree (e.g., MA, MS, Birgit, MEd, MANAGER MOTOR, IVANIA) 10/15/2019 Comments No Sex and Gender [...] 12:30 PM EDT Infusion Center Hematology/Oncology [address] [place] [address] [place] [address] Hodges dressing and cap change;Labs as needed per patient 09/22/2024 12:30 PM EDT Office Visit Gastroenterology [address] [place] [address] Account Director, Hpn [address] [phone] HPN / PAGE [phone] 09/22/2024 1:00 PM EDT Office Visit Gastroenterology [address] [place] [address] Georgina Barkley MD [facility] [address] [place] [address] HPN / PAGE [phone] 09/25/2024 9:00 AM EDT Infusion Center Hematology/Oncology [address] [place] [address] [place] [address] Hodges dressing and cap change;Labs as needed per patient 09/29/2024 10:15 AM EDT Appointment [facility] Endoscopy - ENDO [address] [place] [address] [place] [address] [place] [address] EGD 10/02/2024 9:00 AM EDT Infusion Center Hematology/Oncology [address] [place] [address] [place] [address] Hodges dressing and cap change;Labs as needed per patient 10/09/2024 9:00 AM EDT Infusion Center Hematology/Oncology [address] [place] [address] [place] [address] Hodges dressing and cap change;Labs as needed per patient documented as of this encounter Visit Diagnoses Not on filedocumented in this encounter Additional Health Concerns Infection Onset Date Last Indicated Resolved Time COVID-19 Rule-Out 06/06/2023 06/06/2023 06/06/2023 6:19 PM EDT documented as of this encounter Care Teams Lithoduplicator Operator Relationship Specialty Start Date End Date Anna Mendez APRN.DIRECT MARKETING ANALYST [address] [address] PCP - General 06/16/22 07/29/23 Thomas Alas MD [address] [place] [address] PCP - General Family Medicine 07/30/23 Antelmo Davey MD [address] [place] [address] 09/25/19 [place] [address] [place] [address] Consulting General Surgery 09/25/19 Shanna June CNP [address] [place] [address] Referring Family Medicine 10/19/19 Tj Najera PA [address] [facility] [address] [place] [address] Referring Family Medicine 05/13/22 Georgina Barkley MD [address] [place] [address] Home Parenteral Nutrition Provider Gastroenterology 10/14/23 documented as of this encounter
--- OUTSIDE RECORDS SUMMARY | 2024-09-15 16:44 | XMS_ITS | Encounter Summary ---
Author Organization [facility] Address [address] [place] [address] Care Team Providers Care Ammonia Distiller Name Role Phone Antelmo Davey MD Unavailable Deacon Valladares MD Unavailable [phone] Shanna June [facility] Unavailable [phone] Tj Najera Unavailable [phone] Anna Mendez APRN.[facility] Primary Care Provider Thomas Alas MD Primary Care Provider [phone] Georgina Barkley MD Unavailable [phone] Source Comments In the event this information is protected by the Federal Confidentiality of Alcohol and Drug AbusePatient Records regulations: The Federal rules restrict any use of the information to criminally investigate or prosecute any alcohol or drug abuse patient.[facility] Encounter Details Date Type Department Care Team (Late st Contact Info) Description 07/05/2023 Get Medical Advice Gastroenterology [address] [id number] Kasie vAalos MD [address] [place] [id number] Possible Prolapse Social History Tobacco Use Types Packs/Day Years Used Date Smoking Tobacco: Never Smokeless Tobacco: Never Alcohol Use Standard Drinks/Week Comments Not Currently 0 (1 standard drink = 0.6 oz pur e alcohol) [facility] Utilities Answer Date Recorded In the [...] often do you attend chur ch or mosque services? 1 to 4 times per year [...] Answer Date Recorded PHQ-2 score 2 07/09/2023 [facility] - Occupational [...] slept in a assisted (including now)? No 06/07/2023 Area Deprivation Index Answer Date Nayan rded National Score (1-100), lower number is lower ri sk 64 06/17/2022 State Score (1-10), lower number is lower risk 4 06/17/2022 Data from: https://www.neighborhoodatlas.medicine.[facility].edu/. Last address used for calculation [address] 06/17/2022 Education Answer Date Recorded What is the highest level of school you have completed or the highest degree you have received? Master's degree (e.g., MA, MS, Birgit, MEd, MAINTENANCE ENGINEER, IVANIA) 10/15/2019 Comments No Sex and [...] 12:30 PM EDT Infusion Center Hematology/Oncology [address] [place] [address] [place] [address] Hodges dressing and cap change;Labs as needed per patient 09/22/2024 12:30 PM EDT Office Visit Gastroenterology [address] [phone] Grinder Set Up Operator, Hpn [address] [place] [address] HPN / PAGE [id number] 09/22/2024 1:00 PM EDT Office Visit Gastroenterology [address] [phone] Georgina Barkley MD [facility] [address] [phone] HPN / PAGE [id number] 09/25/2024 9:00 AM EDT Infusion Center Hematology/Oncology [address] [place] [address] Hodges dressing and cap change;Labs as needed per patient 09/29/2024 10:15 AM EDT Appointment [facility] Endoscopy - ENDO [address] [place] [address] [place] [address] [place] [address] EGD 10/02/2024 9:00 AM EDT Infusion Center Hematology/Oncology [address] [facility] [place] [address] Hodges dressing and cap change;Labs as needed per patient 10/09/2024 9:00 AM EDT Infusion Center Hematology/Oncology [address] [place] [address] Hodges dressing and cap change;Labs as needed per patient documented as of this encounter Visit Diagnoses Not on filedocumented in this encounter Care Teams Ammonia Distiller Relationship Specialty Start Date End Date Anna Mendez INTEGRATED CIRCUITS INSPECTOR.ENGINEERING SUPERVISOR [address] [address] PCP - General 06/16/22 07/29/23 Thomas Alas MD [address] [place] [address] PCP - General Family Medicine 07/30/23 Antelmo Davey MD [address] [place] [address] 09/25/19 [place] [address] [place] [address] Consulting General Surgery 09/25/19 Shanna June CNP [address] [place] [address] Referring Family Medicine 10/19/19 Tj Najera PA [address] [place] [address] Referring Family Medicine 05/13/22 Georgina Barkley MD [address] [place] [address] Home Parenteral Nutrition Provider Gastroenterology 10/14/23 documented as of this encounter
--- OUTSIDE RECORDS SUMMARY | 2024-09-15 16:45 | XMS_ITS | Clinical Summary ---
Author Organization [facility] Address [address] [place] [address] Care Team Providers Care Nursery Rn Name Role Phone Thomas Alas MD Primary Care Provider [phone] Allergies Active Allergy Reactions Criticality Noted Date [...] morning. Active ergocalciferol (Vitamin D-2) 1.25 MG (32333 Units) capsule Take 50,000 Units by mouth 1 (one) time per week. Active hydrOXYzine HCL (Atarax) 25 mg tablet Take 25 mg by mouth if needed in the morning and at bedtime for itching. 025 Discontinued busPIRone (Buspar) 10 mg tablet Take 10 mg by mouth three times daily. 025 Discontinued fentaNYL (Duragesic) 25 mcg/hr Place 1 patch on the skin every 3rd (third) day. 025 Discontinued HYDROcodone-hernandez taminophen ([place]) 5-325 mg tablet Take 1 tablet by mouth every 6 (six) hours if needed for moderate-sharon re pain (4-10 pain score) (pain). 025 Discontinued amoxicillin-pot clavulanate (Augmentin) 875-125 mg tabletIndicatio ns:Bacteremia Take 1 tablet by mouth two times daily for 10 days. 20 tablet 08/21/19 25 025 Discontinued amoxicillin-pot clavulanate (Augmentin) 875-125 mg tabletIndicatio ns:Bacteremia Take 1 tablet by mouth two times daily for 11 days. 22 tablet 08/21/19 25 025 Active Problems Problem Noted Date Diagnosed Date Sepsis due to Klebsiella 08/18/2024 Assessment & Plan (08/19/2024 1:03 PM EDT): - source is likely the cellulitis around the J-tube status post J-tube removal. - CT scan from [facility] showing no abscess. - Infectious disease recommendations appreciated, continue with ceftriaxone. - Repeat blood cultures on 08/16: NGTD - central line in place, does not look like infected, continue monitoring, central line care. Assessment & Plan (08/18/2024 12:20 PM EDT): - source is likely the cellulitis around the J-tube status post J-tube removal. - CT scan from [facility] showing no abscess. - Infectious disease recommendations appreciated, continue with ceftriaxone. - Repeat blood cultures on 08/16: NGTD - central line in place, does not look like infected, continue monitoring, central line care. Sepsis due to Enterococcus 08/18/2024 Assessment & Plan (08/19/2024 1:03 PM EDT): - source is likely the cellulitis around the J-tube status post J-tube removal. - CT scan from [facility] showing no abscess. - Infectious disease recommendations appreciated, continue with ceftriaxone. - Repeat blood cultures on 08/16: NGTD - central line in place, does not look like infected, continue monitoring, central line care. Assessment & Plan (08/18/2024 12:20 PM EDT): - source is likely the cellulitis around the J-tube status post J-tube removal. - CT scan from [facility] showing no abscess. - Infectious disease recommendations [...] and scheduled tramadol. Continue with as needed [place]. Assessment & Plan (08/18/2024 12:20 PM EDT): - continue with home meds including fentanyl patch and scheduled tramadol. Continue with as needed [place]. MALT (mucosa associated lymphoid tissue) Assessment & Plan (08/19/2024 1:03 PM EDT): [...] daily DVT prophylaxis is VTE protocols per [facility] GI prophy Protonix Monitor labs) Obtain blood [...] Department Care Team Description 08/20/2024 Orders Only [facility] End[facility] Surgery [address] [place] [id number] Mikayla Jennings PA-C Wound cellulitis (Primary Dx) 08/20/2024 Orders Only [facility] [address] [place] [phone] Mikayla Jennings PA-C Wound cellulitis (Primary Dx) 08/16/2024 8:48 PM EDT - 08/20/2024 3:55 PM EDT Hospital Encounter [facility] 5ABCD Surgery Stepdown [address] [place] [address] Sandeep Casey MD Mansur, Sarmed, MD Okoro, Bonaventure, MD Bacteremia (Primary Dx) Discharge Disposition: Home or Self Care () 08/16/2024 Travel from Last 3 Months Social History Tobacco Use Types Packs/Day Years Used Date Smoking Tobacco: Never Smokeless Tobacco: Never Tobacco Cessation:Counseling Given: Not Answered [facility] Utilities Answer Date Recorded In the past [...] any time in the past 12 m [facility], were you homeless or living in a mcc (including now)? No 08/16/2024 Hunger Vital Sign [...] of14 resultswithin the time period is included. [facility] Glucose POC 122(H) 70 - 105 mg/dL 08/20/2024 11:30 AM EDT [facility] ([facility]) Comment:[email or web address] Blood Capillary blood specimen / Unknown 08/20/2024 11:10 AM EDT 08/20/2024 11:30 AM EDT Narrative [facility] ([facility]) - 08/20/2024 11:30 AM EDT Waived Testing in the ED is performed under the ED CLIA certificate #[id number]. us Mauricio Garcia MD LAB BLOOD ORDERABLES Final Resu lt [facility] ([facility]) [address] [id number] * (ABNORMAL) CBC (08/20/2024 5:17 AM EDT) Only the most recent of4 resultswithin the time period is included. Pathologist [facility] Auto WBC 5.02 4.00 - 10.60 10*3/uL 08/20/2024 6:20 AM EDT [facility] ([facility]) RBC 3.02(L) 3.80 - 5.00 10*6/uL 08/20/2024 6:20 AM EDT [facility] ([facility]) Hemoglobin 9.1(L) 12.0 - 15.0 g/dL 08/20/2024 6:20 AM EDT [facility] ([facility]) Hematocrit 29.1(L) 36.0 - 45.0 % 08/20/2024 6:20 AM EDT [facility] ([facility]) MCV 96.4 82.0 - 98.0 fL 08/20/2024 6:20 AM EDT [facility] ([facility]) MCH 30.1 27.0 - 33.0 pg 08/20/2024 6:20 AM EDT [facility] ([facility]) MCHC 31.3(L) 32.0 - 35.0 g/dL 08/20/2024 6:20 AM EDT [facility] ([facility]) RDW 13.7 11.5 - 15.0 % 08/20/2024 6:20 AM EDT [facility] ([facility]) Platelets 336 150 - 400 10*3/uL 08/20/2024 6:20 AM EDT [facility] ([facility]) Blood Blood sample taken from central line / Unknown Existing Catheter / Unknown 08/20/2024 5:17 AM EDT 08/20/2024 5:58 AM EDT us Mauricio Garcia MD LAB BLOOD ORDERABLES Final Resu lt [facility] ([facility]) [address] [place], [place] [id number] * (ABNORMAL) Basic metabolic panel (08/20/2024 5:17 AM EDT) Only the most recent of5 resultswithin the time period is included. Sodium 142 136 - 145 mmol/L 08/20/2024 6:27 AM EDT [facility] ([facility]) Potassium 3.7 3.5 - 5.1 mmol/L 08/20/2024 6:27 AM EDT [facility] ([facility]) Chloride 109(H) 98 - 107 mmol/L 08/20/2024 6:27 AM EDT [facility] ([facility]) CO2 26 21 - 31 mmol/L 08/20/2024 6:27 AM EDT [facility] ([facility]) BUN 4(L) 7 - 25 mg/dL 08/20/2024 6:27 AM EDT [facility] ([facility]) Creatinine 0.54(L) 0.60 - 1.20 mg/dL 08/20/2024 6:27 AM EDT [facility] ([facility]) Glucose 81 70 - 100 mg/dL 08/20/2024 6:27 AM EDT [facility] ([facility]) Calcium 8.4(L) 8.6 - 10.3 mg/dL 08/20/2024 6:27 AM EDT [facility] ([facility]) Anion Gap 11 7 - 20 mmol/L 08/20/2024 6:27 AM EDT [facility] ([facility]) eGFR 123.1 >60.0 mL/min/1. 73m*2 08/20/2024 6:27 AM EDT [facility] ([facility]) Comment:[facility] s estimated glomerular filtration rate (eGFR) will [...] BUN/Creatinine Ratio 7.4 07/2024 6:27 AM EDT [facility] ([facility]) Blood Blood sample taken from central line / Unknown Existing Catheter / Unknown 08/20/2024 5:17 AM EDT 08/20/2024 5:57 AM EDT us Mauricio Garcia MD LAB BLOOD ORDERABLES Final Resu lt [facility] ([facility]) [address] [place] [address] * CT abdomen pelvis w [...] Electronically signed: Anabelle Mason. Mauricio Garcia MD [facility] CT PROCEDURES Final Result * XR chest [...] Colorless, Yellow, Light-Yellow 08/17/2024 6:45 AM EDT [facility] ([facility]) Clarity, Urine Clear Clear 08/17/2024 6:45 AM EDT [facility] ([facility]) pH, Urine 6.0 5.0 - 8.0 pH 08/17/2024 6:45 AM EDT [facility] ([facility]) Leukocytes, Urine Negative Negative 08/17/2024 6:45 AM EDT [facility] ([facility]) Nitrite, Urine Negative Negative 08/17/2024 6:45 AM EDT [facility] ([facility]) Protein, Urine Negative Negative mg/dL 08/17/2024 6:45 AM EDT [facility] ([facility]) Glucose, Urine Normal Normal mg/dL 08/18/19 25 6:45 AM EDT [facility] ([facility]) Bilirubin, Urine Negative Negative 08/17/2024 6:45 AM EDT [facility] ([facility]) Specific [place], Urine 1.019 1.010 - 1.030 08/17/2024 6:45 AM EDT [facility] ([facility]) Ketones, Urine Negative Negative mg/dL 08/17/2024 6:45 AM EDT [facility] ([facility]) Blood, Urine Negative Negative 08/17/2024 6:45 AM EDT [facility] ([facility]) Urobilinogen, Urine Normal Normal mg/dL 08/17/2024 6:45 AM EDT [facility] ([facility]) Urine Urine specimen obtained by clean catch procedure / Unknown Non-blood Collection / Unknown 08/17/2024 6:26 AM EDT 08/17/2024 6:32 AM EDT Narrative [facility] ([facility]) - 08/17/2024 6:45 AM EDT Microscopics not performed on urines with negative chemical reactions unless requested on original order. us Jace Corley PA-C LAB URINE ORDERABLES Final Res ult [facility] ([facility]) [address] [place] [address] * (ABNORMAL) CBC auto differential (08/16/2024 9:37 PM EDT) Auto WBC 4.37 4.00 - 10.60 10*3/uL 08/16/2024 10:08 PM EDT [facility] ([facility]) RBC 2.95(L) 3.80 - 5.00 10*6/uL 08/16/2024 10:08 PM EDT [facility] ([facility]) Hemoglobin 9.0(L) 12.0 - 15.0 g/dL 08/16/2024 10:08 PM EDT [facility] ([facility]) Hematocrit 27.8(L) 36.0 - 45.0 % 08/16/2024 10:08 PM EDT [facility] ([facility]) MCV 94.2 82.0 - 98.0 fL 08/16/2024 10:08 PM EDT [facility] ([facility]) MCH 30.5 27.0 - 33.0 pg 08/16/2024 10:08 PM EDT [facility] ([facility]) MCHC 32.4 32.0 - 35.0 g/dL 08/16/2024 10:08 PM EDT [facility] ([facility]) RDW 14.2 11.5 - 15.0 % 08/16/2024 10:08 PM EDT [facility] ([facility]) Neutrophils % 61.1 40.0 - 72.0 % 08/16/2024 10:08 PM EDT [facility] ([facility]) Lymphocytes % 28.8 20.0 - 45.0 % 08/16/2024 10:08 PM EDT [facility] ([facility]) Monocytes % 8.0 5.0 - 12.0 % 08/16/2024 10:08 PM EDT [facility] ([facility]) Eosinophils % 1.4 0.0 - 6.0 % 08/16/2024 10:08 PM EDT [facility] ([facility]) Basophils % 0.2 0.0 - 1.0 % 08/16/2024 10:08 PM EDT [facility] ([facility]) Neutrophils Absolute 2.67 1.60 - 7.60 10*3/uL 08/16/2024 10:08 PM EDT [facility] ([facility]) Lymphocytes Absolute 1.26 1.20 - 4.00 10*3/uL 08/16/2024 10:08 PM EDT [facility] ([facility]) Monocytes Absolute 0.35 0.10 - 1.00 10*3/uL 08/16/2024 10:08 PM EDT [facility] ([facility]) Eosinophils Absolute 0.06 0.00 - 0.50 10*3/uL 08/16/2024 10:08 PM EDT [facility] ([facility]) Basophils Absolute 0.01 0.00 - 0.20 10*3/uL 08/16/2024 10:08 PM EDT [facility] ([facility]) Platelets 227 150 - 400 10*3/uL 08/16/2024 10:08 PM EDT [facility] ([facility]) nRBC % 0.0 0 % 08/16/2024 10:08 PM EDT [facility] ([facility]) Immature Granulocytes % 0.5 0.0 - 1.0 % 08/16/2024 10:08 PM EDT [facility] ([facility]) Immature Granulocytes Absolute 0.02 0.00 - 0.20 10*3/uL 08/16/2024 10:08 PM EDT [facility] ([facility]) Blood Venous blood specimen / Unknown Existing Catheter / Unknown 08/16/2024 9:37 PM EDT 08/16/2024 10:00 PM EDT us Jace Corley PA-C LAB BLOOD ORDERABLES Final Res ult [facility] ([facility]) [address] [place] [address] * Blood culture, peripheral #2 (08/16/2024 9:37 PM EDT) Only the most recent of2 resultswithin the time period is included. Blood Culture No growth at 5 days SANDHYA 08/21/2024 10:01 PM EDT [facility] ([facility]) Blood Venous blood specimen / Unknown Venipuncture / Unknown 08/16/2024 9:37 PM EDT 08/16/2024 9:59 PM EDT Jace INMAN-Elroy LAB MICROBIOLOGY - GENERAL ORD ERABLES Final Result Performing Organization Address City/[facility]/ZIP Co de Phone Number [facility] ([facility]) [address] [place] [address] * (ABNORMAL) Magnesium (08/16/2024 9:37 PM EDT) Magnesium 1.8(L) 1.9 - 2.7 mg/dL 08/16/2024 10:24 PM EDT [facility] ([facility]) Blood Venous blood specimen / Unknown Existing Catheter / Unknown 08/16/2024 9:37 PM EDT 08/16/2024 10:00 PM EDT Jace INMAN-C LAB BLOOD ORDERABLES Final Res ult Performing Organization Address City/[facility]/ZIP Co de Phone Number [facility] ([facility]) [address] [facility] [place] [address] * (ABNORMAL) Lactic acid, plasma (08/16/2024 9:37 PM EDT) Lactate 0.4(L) 0.5 - 2.2 mmol/L 08/16/2024 10:28 PM EDT [facility] ([facility]) Blood Venous blood specimen / Unknown Existing Catheter / Unknown 08/16/2024 9:37 PM EDT 08/16/2024 9:59 PM EDT Jace INMAN-C LAB BLOOD ORDERABLES Final Res ult [facility] ([facility]) [address] [place] [address] * (ABNORMAL) Hepatic function panel (08/16/2024 9:37 PM EDT) Total Bilirubin 0.4 0.3 - 1.0 mg/dL 08/16/2024 10:24 PM EDT [facility] ([facility]) Bilirubin, Direct 0.1 0 - 0.2 mg/dL 08/16/2024 10:24 PM EDT [facility] ([facility]) Alkaline Phosphatase 73 34 - 104 U/L 08/16/2024 10:24 PM EDT [facility] ([facility]) AST 21 13 - 39 U/L 08/16/2024 10:24 PM EDT [facility] ([facility]) ALT (SGPT) 10 7 - 52 U/L 08/16/2024 10:24 PM EDT [facility] ([facility]) Total Protein 5.4(L) 6.0 - 8.3 g/dL 08/16/2024 10:24 PM EDT [facility] ([facility]) Albumin 2.9(L) 3.5 - 5.7 g/dL 08/16/2024 10:24 PM EDT [facility] ([facility]) Blood Venous blood specimen / Unknown Existing Catheter / Unknown 08/16/2024 9:37 PM EDT 08/16/2024 10:00 PM EDT Jace Corley PA-C LAB BLOOD ORDERABLES Final Res ult [facility] ([facility]) [address] [place] [address] from Last 3 Months Insurance [employer] Advance Directives * Full Code (Latest Code Status on File) Date Activated Date Inactivated Comments 08/16/2024 9:21 PM 08/20/2024 5:55 PM Care Teams Nursery Rn Relationship Specialty Start Date End Date Thomas Alas MD [address] [place] [address] PCP - General Family Medicine 08/17/24
--- OUTSIDE RECORDS SUMMARY | 2024-09-15 16:45 | XMS_ITS | Encounter Summary ---
Author Organization [facility] Address [address] [place] [address] Care Team Providers Care Site Safety Coordinator Name Role Phone Antelmo Davey MD Unavailable [phone] Deacon Valladares MD Unavailable Shanna June CNP Unavailable [phone] Shanna June CNP Primary Care Provider [phone] Rachel Foley MD Primary Care Provider [phone] Tj Najera Unavailable [phone] Anna Mendez APRN.[facility] Primary Care Provider Thomas Alas MD Primary Care Provider +-4 Georgina Barkley MD Unavailable [phone] Source Comments In the event this information is protected by the Federal Confidentiality of Alcohol and Drug AbusePatient Records regulations: The Federal rules restrict any use of the information to criminally investigate or prosecute any alcohol or drug abuse patient.[facility] Encounter Details Date Type Department Care Team (Late st Contact Info) Description 11/28/2020 Get Medical Advice BMI [facility] REJ [address] [place] [address] [place] [address] [place], [place] [id number] RE: Upcoming Appointment Question Social History Tobacco [...] N ot on file 01/21/2020 Data from: https://www.neighborhoodatlas.medicine.[facility].edu/. Last address used for calculation Not on file 01/21/2020 Education Answer Date Recorded What is the highest level of school you have completed or the highest degree you have received? Master's degree (e.g., MA, MS, Birgit, MEd, TRAFFIC CHECKER, IVANIA) 10/15/2019 Comments No Sex and [...] Contact Info) Description 09/18/2024 12:30 PM EDT [facility] Hematology/Oncology [address] [place] [address] [place] [address] Hodges dressing and cap change;Labs as needed per patient 09/22/2024 12:30 PM EDT Office Visit Gastroenterology [address] [address] Sleeping Room Cleaner, Grupo [address] [place] [address] HPSanchez / PAGE [id number] 09/22/2024 1:00 PM EDT Office Visit Gastroenterology [address] [address] Georgina Barkley MD [facility] [address] [place], [place] [address] HPN / PAGE [phone] 09/25/2024 9:00 AM EDT Infusion Center Hematology/Oncology [address] [place] [address] [place] [address] Hodges dressing and cap change;Labs as needed per patient 09/29/2024 10:15 AM EDT Appointment [facility] Endoscopy - ENDO [address] [place] [address] [place] [address] [place] [address] EGD 10/02/2024 9:00 AM EDT Infusion Center Hematology/Oncology [address] [place] [address] [place] [address] Hodges dressing and cap change;Labs as needed per patient 10/09/2024 9:00 AM EDT Infusion Center Hematology/Oncology [address] [place] [address] [place] [address] Hodges dressing and cap change;Labs as needed [...] documented as of this encounter Care Teams Site Safety Coordinator Relationship Specialty Start Date End Date Shanna June CNP [address] [place] [address] PCP - General Family Medicine 01/31/20 01/18/22 Rachel Foley MD [address] [facility] [place] [address] PCP - General Family Medicine 01/19/22 06/15/22 Anna Mendez APRN.SALES CONTRACT ADMINISTRATOR [address] [address] PCP - General 06/16/22 07/29/23 Thomas Alas MD [address] [place] [address] PCP - General Family Medicine 07/30/23 Antelmo Davey MD [address] [place] [address] 09/25/19 [place] [address] [place] [address] Consulting General Surgery 09/25/19 Shanna June, BETH [address] [place] [address] Referring Family Medicine 10/19/19 jT Najera PA [address] [address] Referring Family Medicine 05/13/22 Georgina Barkley MD [address] [place] [address] Home Parenteral Nutrition Provider Gastroenterology 10/14/23 documented as of this encounter
--- OUTSIDE RECORDS SUMMARY | 2024-09-15 16:45 | XMS_ITS | Encounter Summary ---
Author Organization [facility] Address [address] [place] [address] Care Team Providers Care Quality Assurance Practice Manager Name Role Phone Antelmo Davey MD Unavailable [phone] Deacon Valladares MD Unavailable [phone] Shanna June [facility] Unavailable [phone] Tj Najera Unavailable [phone] Anna Mendez APRN.[facility] Primary Care Provider Thomas Alas MD Primary Care Provider [phone] Georgina Barkley MD Unavailable [phone] Source Comments In the event this information is protected by the Federal Confidentiality of Alcohol and Drug AbusePatient Records regulations: The Federal rules restrict any use of the information to criminally investigate or prosecute any alcohol or drug abuse patient.[facility] Encounter Details Date Type Department Care Team (Late st Contact Info) Description 02/10/2023 Get Medical Advice Pain Management [address] [place] [address] Aryan Ramos MD [address] [place] [address] Celiac Plexus Block Social History Tobacco Use Types Packs/Day Years [...] often do you attend chur ch or druze services? 1 to 4 times per year 10/28/2022 Do you belong to any clubs o r organizations such as buddhism groups, unions, fraternal or athletic groups, or [...] Answer Date Recorded PHQ-2 score 2 11/12/2022 [facility] [place] of Occupat ional Health - Occupational Stress [...] is lower risk 4 06/17/2022 Data from: https://www.neighborhoodatlas.medicine.[facility].edu/. Last address used for calculation [address] [place] [address] RD 46 06/17/2022 Education Answer Date Recorded What is the highest level of school you have completed or the highest degree you have received? Master's degree (e.g., MA, MS, Birgit, MEd, DIRECTOR OF OFFICIATING, IVANIA) 10/15/2019 Comments No Sex and Gender [...] 12:30 PM EDT Infusion Center Hematology/Oncology [address] [place] [address] [place] [address] Carroll dressing and cap change;Labs as needed per patient 09/22/2024 12:30 PM EDT Office Visit Gastroenterology [address] [place] [id number] [place], Hpn [address] [place] [id number] HPN / PAGE [phone] 09/22/2024 1:00 PM EDT Office Visit Gastroenterology [address] [place] [id number] Georgina Barkley MD [facility] [address] [place], [place] [address] HPN / PAGE [id number] 09/25/2024 9:00 AM EDT Infusion Center Hematology/Oncology [address] [place] [address] [place] [address] Hodges dressing and cap change;Labs as needed per patient 09/29/2024 10:15 AM EDT Appointment [facility] Endoscopy - ENDO [address] [place] [address] [place] [address] [place] [address] EGD 10/02/2024 9:00 AM EDT Infusion Center Hematology/Oncology [address] [place] [address] [place] [address] Hodges dressing and cap change;Labs as needed per patient 10/09/2024 9:00 AM EDT Infusion Center Hematology/Oncology [address] [place] [address] [place] [address] Hodges dressing and cap change;Labs as needed per patient documented as of this encounter Visit Diagnoses Not on filedocumented in this encounter Additional Health Concerns Infection Onset Date Last Indicated Resolved Time COVID-19 Rule-Out 06/06/2023 06/06/2023 06/06/2023 6:19 PM EDT documented as of this encounter Care Teams Quality Assurance Practice Manager Relationship Specialty Start Date End Date Anna Mendez MEDICAL OFFICE SUPERVISOR.MAIL CLERK [address] [address] PCP - General 06/16/22 07/29/23 Thomas Alas MD [address] [place] [address] PCP - General Family Medicine 07/30/23 Antelmo Davey MD [address] [place] [address] 09/25/19 [place] [address] [address] [place] [address] Consulting General Surgery 09/25/19 Shanna June CNP [address] [place] [address] Referring Family Medicine 10/19/19 Tj Najera PA [address] [facility] [address] [place] [address] Referring Family Medicine 05/13/22 Georgina Barkley MD [address] [place] [address] Home Parenteral Nutrition Provider Gastroenterology 10/14/23 documented as of this encounter
--- OUTSIDE RECORDS SUMMARY | 2024-09-15 16:45 | XMS_ITS | Encounter Summary ---
Author Organization [facility] Address [address] [place] [address] Care Team Providers Care Production Tool Engineer Name Role Phone Antelmo Davey MD Unavailable [phone] Deacon Valladares MD Unavailable [phone] Shanna June CNP Unavailable [phone] Shanna June CNP Primary Care Provider [phone] Rachel Foley MD Primary Care Provider [phone] Tj Najera Unavailable [phone] Anna Mendez APRN.[facility] Primary Care Provider Thomas Alas MD Primary Care Provider +-4 Georgina Barkley MD Unavailable [phone] Source Comments In the event this information is protected by the Federal Confidentiality of Alcohol and Drug AbusePatient Records regulations: The Federal rules restrict any use of the information to criminally investigate or prosecute any alcohol or drug abuse patient.[facility] Encounter Details Date Type Department Care Team (Late st Contact Info) Description 11/21/2020 Get Medical Advice BMI [facility] REJ [address] [facility] [place] [address] [place] [address] [place], [place] [phone] Upcoming Appointment Question Social History Tobacco Use [...] Master's degree (e.g., MA, MS, Birgit, MEd, MELT DOWN FURNACE OPERATOR, IVANIA) 10/15/2019 Comments No Sex and [...] Contact Info) Description 09/18/2024 12:30 PM EDT [facility] Center Hematology/Oncology [address] [place] [address] [place] [address] Carroll dressing and cap change;Labs as needed per patient 09/22/2024 12:30 PM EDT Office Visit Gastroenterology [address] [place] 1996206 Terra [place]ta Roofer, Grupo [address] [place] [address] HPSanchez / PAGE [phone] 09/22/2024 1:00 PM EDT Office Visit Gastroenterology [address] [place] 1996206 Georgina Barkley MD [facility] [address] [place], [place] [phone] HPN / PAGE [phone] 09/25/2024 9:00 AM EDT Infusion Center Hematology/Oncology [address] [place] [address] [place] [address] Hodges dressing and cap change;Labs as needed per patient 09/29/2024 10:15 AM EDT Appointment [facility] Endoscopy - ENDO [address] [place] [address] [place] [address] [place] [address] EGD 10/02/2024 9:00 AM EDT Infusion Center Hematology/Oncology [address] [place] [address] [place] [address] Hodges dressing and cap change;Labs as needed per patient 10/09/2024 9:00 AM EDT Infusion Center Hematology/Oncology [address] [place] [address] [place] [address] Hodges dressing and cap change;Labs as needed [...] documented as of this encounter Care Teams Production Tool Engineer Relationship Specialty Start Date End Date Shanna June CNP [address] [place] [address] PCP - General Family Medicine 01/31/20 01/18/22 Rachel Foley MD [address] [facility] [place] [address] PCP - General Family Medicine 01/19/22 06/15/22 Anna Mendez APRN.MACHINE BENDER [address] [address] PCP - General 06/16/22 07/29/23 Thomas Alas MD [address] [place] [address] PCP - General Family Medicine 07/30/23 Antelmo Davey MD [address] [place] [address] 09/25/19 [place] [address] [place] [address] Consulting General Surgery 09/25/19 Shanna June CNP [address] [place] [address] Referring Family Medicine 10/19/19 Tj Najera PA [address] [address] Referring Family Medicine 05/13/22 Georgina Barkley MD [address] [place] [address] Home Parenteral Nutrition Provider Gastroenterology 10/14/23 documented as of this encounter
--- OUTSIDE RECORDS SUMMARY | 2024-09-15 16:45 | XMS_ITS | Encounter Summary ---
Author Organization [facility] Address [address] [place] [address] Care Team Providers Care Material Handling Crew Supervisor Name Role Phone Antelmo Davey MD Unavailable [phone] Deacon Valladares MD Unavailable Shanna June [facility] Unavailable [phone] Tj Najera Unavailable [phone] Anna Mendez APRN.[facility] Primary Care Provider Thomas Alas MD Primary Care Provider [phone] Georgina Barkley MD Unavailable [phone] Source Comments In the event this information is protected by the Federal Confidentiality of Alcohol and Drug AbusePatient Records regulations: The Federal rules restrict any use of the information to criminally investigate or prosecute any alcohol or drug abuse patient.[facility] Encounter Details Date Type Department Care Team (Late st Contact Info) Description 03/21/2023 Patient Msg General Surgery [address] [place], [place] [phone] [place] [address] [place] [address] Appointment Request Social History Tobacco Use Types [...] How often do you attend chur or rastafari services? 1 to 4 times per year [...] Answer Date Recorded PHQ-2 score 2 11/12/2022 [facility] [place] of Occupat ional Health - Occupational Stress [...] slept in a long-term (including now)? No 12/06/2022 Area Deprivation Index Answer Date Nayan rded National Score (1-100), lower number is lower ri sk 64 06/17/2022 State Score (1-10), lower number is lower risk 4 06/17/2022 Data from: https://www.neighborhoodatlas.medicine.[facility].edu/. Last address used for calculation [address] [place] [address] RD 46 06/17/2022 Education Answer Date Recorded What is the highest level of school you have completed or the highest degree you have received? Master's degree (e.g., MA, MS, Birgit, MEd, ENVIRONMENTAL HEALTH SPECIALIST, IVANIA) 10/15/2019 Comments No Sex and [...] 09/18/2024 12:30 PM EDT Infusion Center Hematology/Oncology [address] [place] [address] [place] [address] Hodges dressing and cap change;Labs as needed per patient 09/22/2024 12:30 PM EDT Office Visit Gastroenterology 2048 [place] [address] Mechanical Maintenance Engineer, Hpn [address] [place] [id number] HPN / PAGE [phone] 09/22/2024 1:00 PM EDT Office Visit Gastroenterology [address] [place] [address] Georgina Barkley MD [facility] 20[address] [place] [address] HPN / PAGE [id number] 09/25/2024 9:00 AM EDT Infusion Center Hematology/Oncology [address] [place] [address] [place] [address] Hodges dressing and cap change;Labs as needed per patient 09/29/2024 10:15 AM EDT Appointment [facility] Endoscopy - ENDO [address] [place] [address] [place] [address] [place] [address] EGD 10/02/2024 9:00 AM EDT Infusion Center Hematology/Oncology [address] [place] [address] [place] [address] Hodges dressing and cap change;Labs as needed per patient 10/09/2024 9:00 AM EDT Infusion Center Hematology/Oncology [address] [place] [address] [place] [address] Hodges dressing and cap change;Labs as needed per patient documented as of this encounter Visit Diagnoses Not on filedocumented in this encounter Additional Health Concerns Infection Onset Date Last Indicated Resolved Time COVID-19 Rule-Out 06/06/2023 06/06/2023 06/06/2023 6:19 PM EDT documented as of this encounter Care Teams Material Handling Crew Supervisor Relationship Specialty Start Date End Date Anna Mendez APRN.MAINSPRING BARREL ASSEMBLY CLEANER [address] [address] PCP - General 06/16/22 07/29/23 Thomas Alas MD [address]65 [place] [address] PCP - General Family Medicine 07/30/23 Antelmo Davey MD [address] [place] [address] 09/25/19 [place] [address] [place] [address] Consulting General Surgery 09/25/19 Shanna June CNP [address] [place] [address] Referring Family Medicine 10/19/19 Tj Najera PA [address] [facility] 150 [place] [address] Referring Family Medicine 05/13/22 Georgina Barkley MD [address] [place] [address] Home Parenteral Nutrition Provider Gastroenterology 10/14/23 documented as of this encounter
--- OUTSIDE RECORDS SUMMARY | 2024-09-15 16:45 | XMS_ITS | Encounter Summary ---
Author Organization [facility] Address [address] [place] [address] Care Team Providers Care Field Kiln Burner Name Role Phone Antelmo Davey MD Unavailable Deacon Valladares MD Unavailable Shanna June CNP Unavailable [phone] Shanna June CNP Primary Care Provider [phone] Rachel Foley MD Primary Care Provider [phone] Tj Najera Unavailable [phone] Anna Mendez APRN.[facility] Primary Care Provider Thomas Alas MD Primary Care Provider +-[phone] Georgina Barkley MD Unavailable [phone] Source Comments In the event this information is protected by the Federal Confidentiality of Alcohol and Drug AbusePatient Records regulations: The Federal rules restrict any use of the information to criminally investigate or prosecute any alcohol or drug abuse patient.[facility] Encounter Details Date Type Department Care Team (Late st Contact Info) Description 10/04/2020 Patient Msg General Surgery [address] [place] [phone] Provider, [facility] Your Follow Up Appointment Social History Tobacco Use [...] ot on file 01/21/2020 Data from: https://www.neighborhoodatlas.medicine.[facility].edu/. Last address used for calculation Not on file 01/21/2020 Education Answer Date Recorded What is the highest level of school you have completed or the highest degree you have received? Master's degree (e.g., MA, MS, Birgit, MEd, MAIL INSERTER, IVANIA) 10/15/2019 Comments No Sex and Gender [...] have Coronavirus / COVID-19? No / Unsure 10/03/2020 2:19 PM EDT documented as of this encounter Functional Status * Are you deaf or do you have serious difficulty hearing? Answer Date of Assessment Author No 02/08/2020 2:47 PM Ericka Troy RN * Are you blind or do you have serious difficulty seeing, even when wearing glasses? Answer Date of Assessment Author No 02/08/2020 2:47 PM Ericka Tory RN * Do you have serious difficulty [...] [facility] Center Hematology/Oncology [address] [place] [address] [place] [address] Hodges dressing and cap change;Labs as needed per patient 09/22/2024 12:30 PM EDT Office Visit Gastroenterology [address] [place] [id number] Department Specialist, Grupo [address] [place], [place] [id number] HPN / PAGE [phone] 09/22/2024 1:00 PM EDT Office Visit Gastroenterology [address] [place] [id number] Georgina Barkley MD [address] [address] HPN / PAGE [phone] 09/25/2024 9:00 AM EDT Infusion Center Hematology/Oncology [address] [place] [address] [place] [address] Hodges dressing and cap change;Labs as needed per patient 09/29/2024 10:15 AM EDT Appointment [facility] Endoscopy - ENDO [address] [place] [address] [place] [address] [place] [address] EGD 10/02/2024 9:00 AM EDT Infusion Center Hematology/Oncology [address] [place] [address] [place] [address] Hodges dressing and cap change;Labs as needed per patient 10/09/2024 9:00 AM EDT Infusion Center Hematology/Oncology [address] [place] [address] [place] [address] Hodges dressing and cap change;Labs as needed [...] documented as of this encounter Care Teams Field Kiln Burner Relationship Specialty Start Date End Date Shanna June CNP [address] [place] [address] PCP - General Family Medicine 01/31/20 01/18/22 Rachel Foley MD [address] [place] [address] PCP - General Family Medicine 01/19/22 06/15/22 Anna Mendez APRN.LABORER CAR BARN [address] [address] PCP - General 06/16/22 07/29/23 Thomas Alas MD [address] [place] [address] PCP - General Family Medicine 07/30/23 Antelmo Davey MD [address] [place] [address] 09/25/19 [place] [address] [place] [address] Consulting General Surgery 09/25/19 Shanna June, BETH [address] [place] [address] Referring Family Medicine 10/19/19 Tj Najera PA [address] [address] Referring Family Medicine 05/13/22 Georgina Barkley MD [address] [place] [address] Home Parenteral Nutrition Provider Gastroenterology 10/14/23 documented as of this encounter
--- OUTSIDE RECORDS SUMMARY | 2024-09-15 16:45 | XMS_ITS | Encounter Summary ---
Author Organization [facility] Address [address] [place] [address] Care Team Providers Care Board Member Name Role Phone Antelmo Davey MD Unavailable [phone] Deacon Valladares MD Unavailable [phone] Shanna June CNP Unavailable [phone] Tj Najera Unavailable [phone] Thomas Alas MD Primary Care Provider [phone] Georgina Barkley MD Unavailable [phone] Source Comments In the event this information is protected by the Federal Confidentiality of Alcohol and Drug AbusePatient Records regulations: The Federal rules restrict any use of the information to criminally investigate or prosecute any alcohol or drug abuse patient.[facility] Encounter Details Date Type Department Care Team (Late st Contact Info) Description 09/04/2024 Get Medical Advice Gastroenterology [address] [address] Georgina Barkley MD [facility] [address] [address] TPN Reduction Social History Tobacco Use Types Packs/Day Years Used Date Smoking Tobacco: Never Smokeless Tobacco: Never Alcohol Use Standard Drinks/Week Comments Not Currently 0 (1 standard drink = 0.6 oz pur e alcohol) [facility] Utilities Answer Date Recorded In [...] often do you attend chur ch or pentecostalism services? 1 to 4 times [...] Answer Date Recorded PHQ-2 score 2 08/21/2024 [facility] [place] of Occupat ional Health - Occupational Stress [...] any time in the past 12 m [facility], were you homeless or living in a chcf (including now)? No 04/12/2024 Area Deprivation Index Answer Date Nayan rded National Score (1-100), lower number is lower ri sk 64 06/17/2022 State Score (1-10), lower number is lower risk 4 06/17/2022 Data from: https://www.neighborhoodatlas.medicine.[facility].edu/. Last address used for calculation [address] [place] [address] [address] 06/17/2022 Education Answer Date Recorded What is the highest level of school you have completed or the highest degree you have received? Master's degree (e.g., MA, MS, Birgit, MEd, BILLER, IVANIA) 10/15/2019 Comments No Sex and Gender [...] Assessment Author No 04/13/2024 2:05 PM Sandra Crodoba RN documented as of this encounter Mental Status * Because of a physical, mental, or emotional condition, do you have serious difficulty concentrating, remembering, or making decisions? Answer Entry Date Author No 04/13/2024 2:05 PM Sandra Cordoba RN documented in this encounter Miscellaneous Notes * Telephone Encounter - Lisette Perez RD - 09/08/2024 4:24 PM EDT Home Nutrition Support Service Reviewed recent hospital admission with Dr. Barkley during huddle yesterday who would like to repeat blood cx once pt is off of oral abx. Recs: blood cx order added for 09/[address], CNSC * Telephone Encounter - Lisette Perez RD - 09/04/2024 12:19 PM EDT Home Nutrition Support Service Hospital info received. Pt was admitted for fever and chills; 08/28 blood cx from [facility] were positive for Klebsiella pneumoniae; 08/28 and 08/30 peripheral cx are no growth. Pt received IV abx during admission but was switched to oral cefdinir BID x 14 days on D/C. Recs: reduce PN to 3 days/week per patient request -Will see if Dr. Barkley wants us to order repeat blood cx from [facility] Lisette Perez RD, CNSC * Telephone Encounter - Lisette Perez RD - 09/04/2024 11:12 AM EDT Home Nutrition Support Service [facility] was not aware of hospital admission. Call to patient who states she was admitted from 08/28-09/02 for CRBSI. [facility] is still in place; ptwas sent home on oral abx and reports that if she gets another CRBSI, that they will likely remove her line (but would need to transfer her to [facility]). Patient infused 1 bag of PN over the weekend and did not have any fevers. She is requesting to reduce PN from 5 days/week to 3 days/week because she is able to eat more (J-tube was removed last admission). Patient is eating 2 meals/day (small portions), but states she feels it is enough to sustain herself. She is limiting fatty foods at this time because she doesn't tolerate them. Call to [facility] who was unaware of hospital admission and delivered PN last week. Call to [facility] (P: [phone]) and spoke to Maricruz, medical records, who will send hospital info to us. Recs: plan to reduce PN to 3 days/week per patient request -Await hospital info from [facility] Lisette Perez RD, CNSC documented in this encounter Plan of Treatment Upcoming Encounters Date Type Department Care Team (Latest Contact Info) Description 09/18/2024 12:30 PM EDT Infusion Center Hematology/Oncology [address] [place] [address] [place] [address] [facility] dressing and cap change;Labs as needed per patient 09/22/2024 12:30 PM EDT Office Visit Gastroenterology [address] [address] Director Of Quality Improvement, Hpn [address] [place] [address] HPN / PAGE [id number] 09/22/2024 1:00 PM EDT Office Visit Gastroenterology [address] [address] Georgina Barkley MD [facility] [address] [place] [address] HPN / PAGE [id number] 09/25/2024 9:00 AM EDT Infusion Center Hematology/Oncology [address] [place] [address] [place] [address] [facility] dressing and cap change;Labs as needed per patient 09/29/2024 10:15 AM EDT Appointment [facility] Endoscopy - ENDO [address] [place] [address] [place] [address] [place] [address] EGD 10/02/2024 9:00 AM EDT Infusion Center Hematology/Oncology [address] [place] [address] [place] [address] [facility] dressing and cap change;Labs as needed per patient 10/09/2024 9:00 AM EDT Infusion Center Hematology/Oncology [address] [place] [address] [place] [address] [facility] dressing and cap change;Labs as needed per patient documented as of this encounter Goals Goal Patient Goal Type Associated Problems Recent Progress Patient-Stated? Author Blood Pressure < 140/90 Blood Pressure 112/76( 025 8:48 AM EDT) Hannah Steel MD documented as of this encounter Visit Diagnoses Diagnosis On total parenteral nutrition (TPN)- Primary Other specified conditions influencing health status documented in this encounter Care Teams Board Member Relationship Specialty Start Date End Date Thomas Alas MD [address] [facility] [place] [address] PCP - General Family Medicine 07/30/23 Antelmo Davey MD [address] [facility] [place] [address] 09/25/19 [place] [address] [place] [address] Consulting General Surgery 09/25/19 Shanna June CNP [address] [place] [address] Referring Family Medicine 10/19/19 Tj Najera PA [address] [facility] [address] [place] [address] Referring Family Medicine 05/13/22 Georgina Barkley MD [address] [place] [address] Home Parenteral Nutrition Provider Gastroenterology 10/14/23 documented as of this encounter
--- OUTSIDE RECORDS SUMMARY | 2024-09-15 16:45 | XMS_ITS | Clinical Summary ---
Author Organization [facility] Address [address], [address] [place] [address] Care Team Providers Care Take Down Sorter Name Role Phone Anna Mendez APRN - ZEYAD Primary Care Provider [phone] Allergies Active Allergy Reactions Criticality Noted Date [...] - season) 2023 02/18/2021, 06/23/2020 Flu vaccine (#1) [...] Garcia Ex-Spouse Primary Decision Maker Care Teams Take Down Sorter Relationship Specialty Start Date End Date Anna Mendez APRN - ZEYAD [address] [place] [address] PCP - General 11/28/22
--- OUTSIDE RECORDS SUMMARY | 2024-09-15 16:45 | XMS_ITS | Encounter Summary ---
Author Organization [facility] Address [address] [place] [address] Care Team Providers Care Office Worker Name Role Phone Antelmo Davey MD Unavailable Deacon Valladares MD Unavailable Shanna June CNP Unavailable [phone] Tj Najera Unavailable [phone] Thomas Alas MD Primary Care Provider [phone] Georgina Barkley MD Unavailable [phone] Source Comments In the event this information is protected by the Federal Confidentiality of Alcohol and Drug AbusePatient Records regulations: The Federal rules restrict any use of the information to criminally investigate or prosecute any alcohol or drug abuse patient.[facility] Encounter Details Date Type Department Care Team (Late st Contact Info) Description 09/11/2024 Patient Update Gastroenterology [address] [address] Ocular Care Technologist, Hpn [address] [place] [address] Social History Tobacco Use Types Packs/Day Years Used Date Smoking Tobacco: Never Smokeless Tobacco: Never Alcohol Use Standard Drinks/Week Comments Not Currently 0 (1 standard drink = 0.6 oz pur e alcohol) [facility] Utilities Answer Date Recorded In the [...] Answer Date Recorded PHQ-2 score 2 08/21/2024 [facility] [place] of Occupat ional Health - Occupational Stress [...] in the past 12 m [facility], were you homeless or living in a senior care (including now)? No 04/12/2024 Area Deprivation Index Answer Date Nayan rded National Score (1-100), lower number is lower ri sk 64 06/17/2022 State Score (1-10), lower number is lower risk 4 06/17/2022 Data from: https://www.neighborhoodatlas.medicine.[facility].edu/. Last address used for calculation [address] 06/17/2022 Education Answer Date Recorded What is the highest level of school you have completed or the highest degree you have received? Master's degree (e.g., MA, MS, Birgit, MEd, CARTOGRAPHIC AIDE, IVANIA) 10/15/2019 Comments No Sex and [...] 09/18/2024 12:30 PM EDT Infusion Center Hematology/Oncology [address] [place] [address] [place] [address] [facility] dressing and cap change;Labs as needed per patient 09/22/2024 12:30 PM EDT Office Visit Gastroenterology [address] [place] [id number] Ocular Care Technologist, Hpn [address] [place] [address] HPN / PAGE [phone] 09/22/2024 1:00 PM EDT Office Visit Gastroenterology [address] [place] [phone] Georgina Barkley MD [facility] [address] [place], [place] [phone] HPN / PAGE [id number] 09/25/2024 9:00 AM EDT Infusion Center Hematology/Oncology [address] [place] [address] [place] [address] [facility] dressing and cap change;Labs as needed per patient 09/29/2024 10:15 AM EDT Appointment [facility] Endoscopy - ENDO [address] [place] [id number] [place] [address] [place] [address] EGD 10/02/2024 9:00 AM EDT Infusion Center Hematology/Oncology [address] [place] [address] [place] [address] [facility] dressing and cap change;Labs as needed per patient 10/09/2024 9:00 AM EDT Infusion Center Hematology/Oncology [address] [place] [address] [place] [address] [facility] dressing and cap change;Labs as needed per patient documented as of this encounter Goals Goal Patient Goal Type Associated Problems Recent Progress Patient-Stated? Author Blood Pressure < 140/90 Blood Pressure 112/76( 025 8:48 AM EDT) No Hannah Devlin MD documented as of this encounter Visit Diagnoses Diagnosis Poor response to enteral nutrition- Primary documented in this encounter Care Teams Office Worker Relationship Specialty Start Date End Date Thomas Alas MD [address] [place] [address] PCP - General Family Medicine 07/30/23 Antelmo Davey MD [address] [place] [address] 09/25/19 [place] [address] [place] [address] Consulting General Surgery 09/25/19 Shanna June CNP [address] [place] [address] Referring Family Medicine 10/19/19 Tj Najera PA [address] [address] Referring Family Medicine 05/13/22 Georgina Barkley MD [address] [place] [address] Home Parenteral Nutrition Provider Gastroenterology 10/14/23 documented as of this encounter
--- OUTSIDE RECORDS SUMMARY | 2024-09-15 16:45 | XMS_ITS | Clinical Summary ---
Author Organization [facility] Address [address] [place] [address] Phone Care Team Providers Care Photoresist Printer Name Role Phone Generic Provider, No Assigned [...] from your doctor or pharmacy? Never 06/30/2023 [facility] Utilities Answer Date Recorded In the past 12 months has [facility] [employer] gas, oil, or water [employer] threatened to shut off services in your [...] or ex-partner? No 06/30/2023 Social Connection and Isolation Panel Answer Date Recorded In a typical week, how many times do you talk on the phone with family, friends, or neighbors? Twice a week 06/30/2023 How often do you get togethe r with friends or relatives? Twice a week 06/30/2023 How often do you attend chur or buddhist services? More than 4 times per year 06/30/2023 Do you belong to any clubs o r organizations such as alevism groups, unions, fraternal or athletic groups, or [...] Recorded Patient Health Questionnaire-2 Score 2 06/30/2023 [facility] of Occupat ional Health - [...] slept in a detention (including now)? No 06/30/2023 Comments Unknown Sex [...] Care Team (Late st Contact Info) Description 10/24/2024 3:15 PM EDT Office Visit [facility] Physician Fabio [address] [place] [id number] [place] [address] [place], [place] [phone] Health Maintenance Due Date Last Done Comments Echocardiogram 1989 HIV Screening 1989 Lipid Panel 1989 MMR Vaccines (1 of 1 - Standard series) 1990 Hepatitis C Screening 2007 Hepatitis B Vaccines (1 of 3 - 19+ 3-dose series) 2008 Pneumococcal Vaccine: Pediatrics and At-Risk Adult Patients (1 of 2 - PCV) 2008 Cervical Cancer Screening 2010 HPV/Cotest 2010 Pap Smear 2010 HPV Vaccines (1 - 3-dose standard series) 2016 Yearly Adult Physical 12/18/2021 12/17/2020 COVID-19 Vaccine [...] this topic Medical Devices Implanted Type Area Vice President Planning Device Identifier Shelf Expiration Date Model / Serial / Lot Membrane, Seprafilm, 5 X 6 In - [id number] Implanted:Qty : 1 on 03/05/2023 by Sherry Holley MD at [facility] Implant N/A: Abdomen [facility] [id number] 10/02/2023 [id number] / / [id number] Procedures Procedure Name Priority Date/Time Associated Diagnosis Comments POCT GLUCOSE Routine 07/03/2023 7:17 AM EDT RENAL FUNCTION PANEL Routine 07/02/2023 6:47 AM EDT from Last 3 Months or Most Recently Relevant to Health Maintenance Results * (ABNORMAL) POCT GLUCOSE (07/03/2023 7:17 AM EDT) [facility] POCT Glucose 121(H) 74 - 99 mg/dL 07/03/2023 7:24 AM EDT [facility] Blood Capillary blood specimen / Unknown 07/03/2023 7:17 AM EDT 07/03/2023 7:24 AM EDT us Kina Ann MD LAB POINT OF CARE TE ST DOCKED DEVICE UNSOLICITED RESULTS Final Result [facility] [address] [place], [place] [id number] * (ABNORMAL) Renal Function Panel (07/02/2023 6:47 AM EDT) [facility] Signature Glucose 101(H) 65 - 99 mg/dL 07/02/2023 7:53 AM EDT [facility] Sodium 137 133 - 145 mmol/L 07/02/2023 7:53 AM EDT [facility] Potassium 3.9 3.4 - 5.1 mmol/L 07/02/2023 7:53 AM EDT [facility] Chloride 103 97 - 107 mmol/L 07/02/2023 7:53 AM EDT [facility] Bicarbonate 23(L) 24 - 31 mmol/L 07/02/2023 7:53 AM EDT [facility] Urea Nitrogen 13 8 - 25 mg/dL 07/02/2023 7:53 AM EDT [facility] Creatinine 0.70 0.40 - 1.60 mg/dL 07/02/2023 7:53 AM EDT [facility] eGFR >90 >60 mL/min/1.7 3m*2 07/02/2023 7:53 AM EDT [facility] Comment: Calculations of estimated GFR are performed using the 2020 CKD-EPI Study Refit equation without the race variable for the IDMS-Traceable creatinine methods. https://jasn.asnjournals.org/content/early//ASN.8769283864 Calcium 8.6 8.5 - 10.4 mg/dL 07/02/2023 7:53 AM EDT [facility] Phosphorus 4.0 2.5 - 4.5 mg/dL 07/02/2023 7:53 AM EDT [facility] Albumin 4.0 3.5 - 5.0 g/dL 07/02/2023 7:53 AM EDT [facility] Anion Gap 11 <=19 mmol/L 07/02/2023 7:53 AM EDT [facility] Blood Venous blood specimen / Unknown 07/02/2023 6:47 AM EDT 07/02/2023 6:58 AM EDT Loreto Doty MD LAB BLOOD ORDERABLES F inal Result [facility] [address] [place] [address] from Last 3 Months or Most Recently Relevant to Health Maintenance Insurance [facility] MEDICAID Advance Directives For more information, please contact: [phone] (Available ) * Full Code (Latest Code Status on File) Date Activated Date Inactivated Comments 03/05/2023 2:37 PM Question Answer Comments Plan of Care: Code Status Discussion Completed Decision Maker: Patient Care Teams Photoresist Printer Relationship Specialty Start Date End Date Generic Provider, No Assigned [place], [place] [address] PCP - General Sprue Knocker 06/29/23
--- OUTSIDE RECORDS SUMMARY | 2024-09-15 16:45 | XMS_ITS | Encounter Summary ---
Author Organization [facility] Address [address] [place] [address] Care Team Providers Care Chicken Dresser Name Role Phone Antelmo Davey MD Unavailable Deacon Valladares MD Unavailable Shanna June CNP Unavailable [phone] Tj Najera Unavailable [phone] Thomas Alas MD Primary Care Provider [phone] Georgina Barkley MD Unavailable [phone] Source Comments In the event this information is protected by the Federal Confidentiality of Alcohol and Drug AbusePatient Records regulations: The Federal rules restrict any use of the information to criminally investigate or prosecute any alcohol or drug abuse patient.[facility] Encounter Details Date Type Department Care Team (Late st Contact Info) Description 09/01/2024 Patient Msg HOSP MAIN H060 [address] [place], [place] [phone] Provider, Ccf Sign up to manage your digestive symptoms in between visits, covered by insurance Social History Tobacco Use Types Packs/Day Years Used Date Smoking Tobacco: Never Smokeless Tobacco: Never Alcohol Use Standard Drinks/Week Comments Not Currently 0 (1 standard drink = 0.6 oz pur e alcohol) [facility] Utilities Answer Date Recorded In the [...] Answer Date Recorded PHQ-2 score 2 08/21/2024 [facility] [place] of Occupat ional Health - Occupational Stress [...] time in the past 12 m [facility], were you homeless or living in a mcc (including now)? No 04/12/2024 Area Deprivation Index Answer Date Nayan rded National Score (1-100), lower number is lower ri sk 64 06/17/2022 State Score (1-10), lower number is lower risk 4 06/17/2022 Data from: https://www.neighborhoodatlas.medicine.[facility].edu/. Last address used for calculation [address] 06/17/2022 Education Answer Date Recorded What is the highest level of school you have completed or the highest degree you have received? Master's degree (e.g., MA, MS, Birgit, MEd, MANAGER SALES TRAINING, IVANIA) 10/15/2019 Comments No Sex and Gender [...] 12:30 PM EDT Infusion Center Hematology/Oncology [address] [place] [address] [place] [address] [facility] dressing and cap change;Labs as needed per patient 09/22/2024 12:30 PM EDT Office Visit Gastroenterology [address] [place] [id number] [employer] [address] [place] [address] GRUPO / PAGE [id number] 09/22/2024 1:00 PM EDT Office Visit Gastroenterology [address] [place] [phone] Georgina Barkley MD [facility] [address] [place], [place] [id number] HPN / PAGE [id number] 09/25/2024 9:00 AM EDT Infusion Center Hematology/Oncology [address] [place] [address] [place] [address] Hodges dressing and cap change;Labs as needed per patient 09/29/2024 10:15 AM EDT Appointment [facility] Endoscopy - ENDO [address] [place] [address] [place] [address] [place] [address] EGD 10/02/2024 9:00 AM EDT Infusion Center Hematology/Oncology [address] [place] [address] [place] [address] Hodges dressing and cap change;Labs as needed per patient 10/09/2024 9:00 AM EDT Infusion Center Hematology/Oncology [address] [place] [address] [place] [address] [facility] dressing and cap change;Labs as needed per patient documented as of this encounter Goals Goal Patient Goal Type Associated Problems Recent Progress Patient-Stated? Author Blood Pressure < 140/90 Blood Pressure 112/76( 025 8:48 AM EDT) No Hannah Devlin MD documented as of this encounter Visit Diagnoses Not on filedocumented in this encounter Care Teams Chicken Dresser Relationship Specialty Start Date End Date Thomas Alas MD [address] [place] [address] PCP - General Family Medicine 07/30/23 Antelmo Davey MD [address] [place] [address] 09/25/19 [place] [address] [place] [address] Consulting General Surgery 09/25/19 Shanna June CNP [address] [place] [address] Referring Family Medicine 10/19/19 Tj Najera PA [address] [address] Referring Family Medicine 05/13/22 Georgina Barkley MD [address] [place] [address] Home Parenteral Nutrition Provider Gastroenterology 10/14/23 documented as of this encounter
--- NOTE | 2024-09-15 16:47 | ED.GENADUL1 ---
HPI HPI - General Adult General Chief complaint: Nausea/Vomiting/Diarrhea Stated complaint: NAUSEA, PALPITATIONS, ABDOMINAL PAIN Time Seen by Provider: 09/15/24 16:35 Source: patient Mode of arrival: walk-in Limitations: no limitations History of Present Illness HPI narrative: 34-year-old female presents to the emergency department for a chief complaint of chills and nausea. She has had this for 3 days and she is worried she is septic. She has not had a fever or cough. No dysuria. She had the feeding tube removed about a month ago. She states there is still some redness around it. No complaints of vomiting or diarrhea. Related Data Home Medications ?Medication ?Instructions ?Recorded ?Confirmed hydroxyzine HCl 25 mg tablet 25 mg PO BID PRN anxiety 09/17/22 08/28/24 topiramate 100 mg tablet 100 mg PO BID 09/17/22 08/28/24 metoclopramide HCl 10 mg tablet 10 mg PO AC PRN nausea and vomiting 06/14/23 08/28/24 escitalopram oxalate 20 mg tablet 20 mg PO DAILY 06/15/23 08/28/24 levothyroxine 75 mcg tablet 75 mcg PO DAILY 06/15/23 08/28/24 acetaminophen 325 mg tablet (Pain 650 mg PO Q4H PRN pain 06/24/23 08/28/24 Relief (acetaminophen)) blood sugar diagnostic ([facility] 03/29/24 08/16/24 Ultra Test strips) [facility] 03[facility]29[facility] 08/16/24 Ultra2 Meter) blood-glucose sensor (FreeStyle 03/29/24 08/16/24 Hunter 3 Plus Sensor device) fentanyl 25 mcg/hr transdermal 1 patch transdermal Q72H 03/29/24 08/28/24 patch hydrocodone 5 mg-acetaminophen 325 1 tab PO Q4H PRN pain 03/29/24 08/28/24 mg tablet lancets 30 gauge (OneTouch Delica 03/29/24 08/16/24 Plus Lancet) omeprazole 40 mg capsule,delayed 40 mg PO BID 03/29/24 08/28/24 release pen needle, diabetic 32 gauge x 03/29/24 08/16/24 5/32 (BD Stefania 2nd Gen Pen Needle) prucalopride 2 mg tablet 2 mg PO DAILY 03/29/24 08/28/24 trazodone 100 mg tablet 100 mg PO .qhs 03/29/24 08/28/24 ergocalciferol (vitamin D2) 1,250 1,250 mcg PO .Q7 06/21/24 08/28/24 mcg (50,000 unit) capsule hydrocortisone 10 mg tablet 10 mg PO DAILY 08/16/24 08/28/24 mirtazapine 45 mg tablet 45 mg PO BEDTIME 08/16/24 08/28/24 ondansetron 4 mg disintegrating 8 mg PO Q4H PRN nausea and vomiting 08/16/24 08/28/24 tablet Previous Rx's ?Medication ?Instructions ?Recorded tramadol 50 mg tablet 50 mg PO Q6H PRN pain #28 tabs 06/16/23 Lactobacillus 1 tab PO BID #40 wafers 09/02/24 acidophilus-Lactbacill.bifidus 1 billion cell oral wafer cefdinir 300 mg capsule 300 mg PO Q12H 14 days #28 caps 09/02/24 methocarbamol 500 mg tablet 500 mg PO BID PRN Muscle spasm #0 09/02/24 tabs Allergies Allergy/AdvReac Type Severity Reaction Status Date / Time adhesive Allergy Rash Verified 09/15/24 16:33 NSAIDS (Non-Steroidal Allergy intolerance Verified 09/15/24 16:33 Anti-Inflamma codeine AdvReac Vomiting Verified 09/15/24 16:33 Opioid HPI Opioid Management Most Recent Opioid Data: Last Pain Scale 7 Today, 16:33 Last ORT Total Score 0 08/28/24, 18:16 Last ORT Risk Category Low Risk 08/28/24, 18:16 Ur Phencyclidine Scrn, (NEGATIVE) Negative 08/28/24, 14:10 Review of Systems ROS Narrative A ten point review of systems is negative except as noted above. [facility] Medical History (Updated 09/15/24 @ 17:43 by Reji Damon MD) Hypoglycemia ?E16.2 - Hypoglycemia, unspecified (ICD-10) Gastroenteritis ?K52.9 - Noninfective gastroenteritis and colitis, unspecified (ICD-10) Feeding by G-tube ?Z93.1 - Gastrostomy status (ICD-10) Abdominal pain ?R10.9 - Unspecified abdominal pain (ICD-10) Small bowel intussusception ?K56.1 - Intussusception (ICD-10) Nausea and vomiting ?R11.2 - Nausea with vomiting, unspecified (ICD-10) Flank pain ?R10.9 - Unspecified abdominal pain (ICD-10) Abdominal pain ?R10.9 - Unspecified abdominal pain (ICD-10) Acute abdomen ?R10.0 - Acute abdomen (ICD-10) Intractable nausea and vomiting ?R11.2 - Nausea with vomiting, unspecified (ICD-10) Intractable abdominal pain ?R10.9 - Unspecified abdominal pain (ICD-10) Depression ?F32.A - Depression, unspecified (ICD-10) Asthma ?J45.909 - Unspecified asthma, uncomplicated (ICD-10) Dyspareunia Pelvic pain ?R10.2 - Pelvic and perineal pain (ICD-10) Ovarian cyst ?N83.209 - Unspecified ovarian cyst, unspecified side (ICD-10) PONV (postoperative nausea and vomiting) ?R11.2 - Nausea with vomiting, unspecified (ICD-10) ?Z98.890 - Other specified postprocedural states (ICD-10) PCOS (polycystic ovarian syndrome) ?E28.2 - Polycystic ovarian syndrome (ICD-10) Hypothyroidism (acquired) ?E03.9 - Hypothyroidism, unspecified (ICD-10) Anxiety ?F41.9 - Anxiety disorder, unspecified (ICD-10) GERD (gastroesophageal reflux disease) ?K21.9 - Gastro-esophageal reflux disease without esophagitis (ICD-10) Sleep apnea ?G47.30 - Sleep apnea, unspecified (ICD-10) Anemia ?D64.9 - Anemia, unspecified (ICD-10) Fibromyalgia ?M79.7 - Fibromyalgia (ICD-10) Syncope (07/07/13) ?R55 - Syncope and collapse (ICD-10) Shingles ?B02.9 - Zoster without complications (ICD-10) Headache ?R51.9 - Headache, unspecified (ICD-10) Migraine ?G43.909 - Migraine, unspecified, not intractable, without status migrainosus (ICD-10) Mechanical ileus (01/31/20) ?K56.609 - Unspecified intestinal obstruction, unspecified as to partial versus complete obstruction (ICD-10) COVID-19 (~02/2020) ?U07.1 - COVID-19 (ICD-10) Kidney stones ?N20.0 - Calculus of kidney (ICD-10) Surgical History S/P percutaneous endoscopic gastrostomy (PEG) tube placement ?Z93.1 - Gastrostomy status (ICD-10) 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 - Celiac artery compression syndrome (ICD-10) H/O shoulder surgery (2022) ?Z98.890 - Other specified postprocedural states (ICD-10) History of hip surgery ?Z98.890 - Other specified postprocedural states (ICD-10) S/P right knee arthroscopy ?Z98.890 - Other specified postprocedural states (ICD-10) S/P left knee arthroscopy ?Z98.890 - Other specified postprocedural states (ICD-10) Hx of tonsillectomy ?Z90.89 - Acquired absence of other organs (ICD-10) History of thoracic surgery (~2021) ?Z98.890 - Other specified postprocedural states (ICD-10) History of esophagogastroduodenoscopy (EGD) (10/04/13) ?Z98.890 - Other specified postprocedural states (ICD-10) History of cholecystectomy (10/06/13) ?Z90.49 - Acquired absence of other specified parts of digestive tract (ICD-10) Delivery by section (~2016) Delivery by section (01/17/18) H/O colonoscopy (~2018) ?Z98.890 - Other specified postprocedural states (ICD-10) S/P right knee arthroscopy (07/21/18) ?Z98.890 - Other specified postprocedural states (ICD-10) Delivery by section (06/19/19) History of appendectomy (09/25/19) ?Z90.49 - Acquired absence of other specified parts of digestive tract (ICD-10) H/O laparoscopy (11/10/19) ?Z98.890 - Other specified postprocedural states (ICD-10) History of liver biopsy (~04/2020) ?Z98.890 - Other specified postprocedural states (ICD-10) H/O laparoscopy (07/18/20) ?Z98.890 - Other specified postprocedural states (ICD-10) H/O arthroscopy of right knee (08/07/20) ?Z98.890 - Other specified postprocedural states (ICD-10) S/P laparoscopic sleeve gastrectomy (09/03/20) ?Z98.84 - Bariatric surgery status (ICD-10) H/O: hysterectomy (11/12/20) ?Z90.710 - Acquired absence of both cervix and uterus (ICD-10) History of hernia repair (03/20/21) ?Z98.890 - Other specified postprocedural states (ICD-10) ?Z87.19 - Personal history of other diseases of the digestive system (ICD-10) Family History Other Family history of cancer Family history of diabetes mellitus Family history of hypertension Family history of myocardial infarction PONV (postoperative nausea and vomiting) Social History (Updated 08/16/24 @ 04:44 by Shelley Wong) Within the past year, how often did you have a drink containing alcohol: never Score interpretation: A score less than 3 is consistent with normal alcohol consumption. Smoking status: Never smoker Non-prescribed substance use: denies use Previous occupational history: disabled Known occupational exposures/hazards details: disabled Highest level of school completed/degree received: Master's degree Are you now , , , , never or living with a partner: In a typical week, how many times do you talk on the telephone with family, friends, or neighbors: 3 or more times per week How often do you get together with friends or relatives: twice per week How often do you attend faith or scientologist services: 4 or more times per year Do you belong to any clubs or organizations such as faith groups unions, fraternal or athletic groups, or school groups: no Total score: 3 Score interpretation: A score of greater than or equal to 2 indicates the lowest level of social isolation. Little interest or pleasure in doing things: not at all Feeling down, depressed, or hopeless: not at all Feel stressed/tense/nervous/anxious/difficulty sleeping: to some extent Do you think of yourself as: straight/heterosexual Gender Identity: female Exam Narrative Exam Narrative: Nurses note and vital signs reviewed and patient is not hypoxic. General: The patient appears in no apparent distress. Patient is resting on cart. Skin: Warm, dry, no pallor noted. There is no rash noted. Head: Normocephalic, atraumatic Eye: Normal conjunctiva, no drainage Ears, Nose, Mouth, and Throat: oral mucosa is moist. Nares patent. Cardiovascular: Regular Rate and Rhythm, not tachycardic Respiratory: Patient is in no distress, no accessory muscle use, lungs are clear to auscultation, no wheezing, rales or rhonchi Back: non-tender GI: Soft and nondistended. Former feeding tube site in the left upper abdomen has some minimal erythema. No expressible pus. The rest of her abdomen has minimal tenderness. Musculoskeletal: The patient has no evidence of calf tenderness, no pitting edema, symmetrical pulses noted bilaterally Neurological: A&O, normal speech Psychiatric: Cooperative Constitutional Vital Signs, click to edit/add: Last Vital Signs Temp 98.2 F 09/15/24 16:33 Pulse 102 H 09/15/24 16:33 Resp 18 09/15/24 16:33 BP 136/88 09/15/24 16:33 Pulse Ox 100 09/15/24 16:33 O2 Del Method Room Air 09/15/24 16:33 Course Vital Signs Vital signs: Vital Signs Temperature 98.2 F 09/15/24 16:33 Pulse Rate 102 H 09/15/24 16:33 Respiratory Rate 18 09/15/24 16:33 Blood Pressure 136/88 09/15/24 16:33 Pulse Oximetry 100 09/15/24 16:33 Oxygen Delivery Method Room Air 09/15/24 16:33 Temperature 98.2 F 09/15/24 16:33 Pulse Rate 102 H 09/15/24 16:33 Respiratory Rate 18 09/15/24 16:33 Blood Pressure 136/88 09/15/24 16:33 Pulse Oximetry 100 09/15/24 16:33 Oxygen Delivery Method Room Air 09/15/24 16:33 Medical Decision Making MDM Narrative Medical decision making narrative: Her workup is negative. There is no evidence of infection. WBC and lactic acid are normal and there is no evidence of UTI. Chest x-ray is negative. She is reassured and discharged home. Treatment diagnosis and follow-up were discussed with the patient. Differential Diagnosis Differential Diagnosis: Sepsis, dehydration, UTI Lab Data Lab results reviewed: Yes I reviewed the patient's lab results Labs: Lab Results 09/15/24 09/15/24 Range/Units 16:40 16:50 WBC 4.6 (4.0-11.0) 10^3/uL RBC 3.80 L (4.20-5.40) 10^6/uL Hgb 11.3 L (12.0-16.0) g/dL Hct 33.8 L (36.0-48.0) % MCV 88.9 (81.0-99.0) fL MCH 29.7 (26.7-34.0) pg MCHC 33.4 (29.9-35.2) g/dL RDW 14.0 (11.0-15.0) % Plt Count 388 (150-450) 10^3/uL MPV 10.3 (9.5-13.5) fL Neut % (Auto) 43.9 (43.0-75.0) % Lymph % (Auto) 43.6 (20.5-60.0) % [place] % (Auto) 9.0 (1.7-12.0) % Eos % (Auto) 2.6 (0.9-7.0) % Baso % (Auto) 0.7 (0.2-2.0) % Neut # (Auto) 2.0 (1.4-6.5) 10^3/uL Lymph # (Auto) 2.0 (1.2-3.8) 10^3/uL Fallon # (Auto) 0.4 (0.3-0.8) 10^3/uL Eos # (Auto) 0.1 (0.0-0.7) 10^3/uL Baso # (Auto) 0.0 (0.0-0.1) 10^3/uL Abs Immat Gran (auto) 0.01 (0.00-0.03) 10^3/uL Imm/Tot Granulo (auto) 0.2 (0.0-0.5) % Sodium 142 (136-145) mmol/L Potassium 3.6 (3.5-5.1) mmol/L Chloride 107 (98-107) mmol/L Carbon Dioxide 24.5 (21.0-32.0) mmol/L Anion Gap 14.1 BUN 6.0 L (7.0-18.0) mg/dL Creatinine 0.66 (0.55-1.02) mg/dL Est GFR ( Amer) >60 (>=60 mL/min/1.73m^2) Est GFR (Non-Af Amer) >60 (>=60 mL/min/1.73m^2) BUN/Creatinine Ratio 9.1 Glucose 90 (74-106) mg/dL Lactate 0.6 (0.4-2.0) mmol/L Calcium 8.4 L (8.5-10.1) mg/dL Magnesium 1.7 L (1.8-2.4) mg/dL Urine Color Yellow (YELLOW) Urine Clarity Clear (CLEAR) Urine pH 6.0 (5.0-9.0) Ur Specific [place] 1.020 (1.005-1.025) Urine Protein Negative (NEG/TRACE) mg/dL Urine Glucose (UA) Negative (NEGATIVE) mg/dL Urine Ketones Trace A (NEGATIVE) mg/dL Urine Occult Blood Negative (NEGATIVE) Urine Nitrite Negative (NEGATIVE) Urine Bilirubin Negative (NEGATIVE) Urine Urobilinogen 0.2 (0.2-1.0) EU/dL Ur Leukocyte Esterase Negative (NEGATIVE) Urine RBC 0-2 (0-2) #/HPF Urine WBC None seen (NONE SEEN) #/HPF Ur Squamous Epith Cells Many A (NONE/RARE) #/LPF Urine Crystals None seen (None Seen) #/HPF Urine Bacteria Trace A (NONE SEEN) #/HPF Urine Casts None seen (NONE SEEN) #/LPF Urine Mucus None seen (NONE SEEN) Ur Culture Indicated? No Imaging Data Chest x-ray: Radiologist's impression: ITS Impressions Chest X-Ray 09/15/24 16:44 IMPRESSION: Negative acute pleural-parenchymal disease. Impression dictated by: Tio Lundberg M.D. 09/15/2024 5:04 PM Dictation Location: [place] [address] Electronically authenticated by: [id number] Y Date: 09/15/2024 17:04 ECG Data Attestation: I personally reviewed and interpreted this ECG as follows: (EKG on my interpretation shows sinus rhythm with rate of 97 and no acute change) Discharge Plan Discharge Chief Complaint: Nausea/Vomiting/Diarrhea Clinical Impression: Nausea Patient Disposition: Home, Self-Care Time of Disposition Decision: 17:43 Condition: Good Mode of Transportation: Private Vehicle Prescriptions / Home Meds: No Action (DME) blood-glucose meter [OneTouch Ultra2 Meter] Misc MISCELLANEOUS (DME) OneTouch Ultra Test Strip MISCELLANEOUS fentanyl 25 mcg/hr patch 72 hour 1 patch transdermal Q72H (DME) FreeStyle Hunter 3 Plus Sensor Device MISCELLANEOUS hydrocodone-acetaminophen 5-325 mg tablet 1 tab PO Q4H PRN (Reason: pain) (DME) lancets [OneTouch Delica Plus Lancet] 30 gauge mis MISCELLANEOUS omeprazole 40 mg capsule,delayed release(DR/EC) 40 mg PO BID (DME) pen needle, diabetic [BD Stefania 2nd Gen Pen Needle] 32 gauge x 5/32 needle MISCELLANEOUS prucalopride 2 mg tablet 2 mg PO DAILY trazodone 100 mg tablet 100 mg PO .qhs mirtazapine 45 mg tablet 45 mg PO BEDTIME hydrocortisone 10 mg tablet 10 mg PO DAILY ondansetron 4 mg tablet,disintegrating 8 mg PO Q4H PRN (Reason: nausea and vomiting) methocarbamol 500 mg tablet 500 mg PO BID PRN (Reason: Muscle spasm) Qty: 0 0RF cefdinir 300 mg capsule 300 mg PO Q12H 14 Days Qty: 28 0RF Lactobacillus acidoph-L. bifid 1 billion cell wafer 1 tab PO BID Qty: 40 0RF Rx Instructions: administer (preferably) with milk hydroxyzine HCl 25 mg tablet 25 mg PO BID PRN (Reason: anxiety) topiramate 100 mg tablet 100 mg PO BID metoclopramide HCl 10 mg tablet 10 mg PO AC PRN (Reason: nausea and vomiting) levothyroxine 75 mcg tablet 75 mcg PO DAILY escitalopram oxalate 20 mg tablet 20 mg PO DAILY tramadol 50 mg tablet 50 mg PO Q6H PRN (Reason: pain) Qty: 28 0RF acetaminophen [Pain Relief (acetaminophen)] 325 mg tablet 650 mg PO Q4H PRN (Reason: pain) ergocalciferol (vitamin D2) 1,250 mcg (50,000 unit) capsule 1,250 mcg PO .Q7 Print Language: Taiwanese Instructions: Acute Nausea and Vomiting (ED) Referrals: Thomas Alas MD [Primary Care Provider, Family Practice] - 1 week
[2024-09-15] MEDS: 0.9 % SODIUM CHLORIDE 1,000 ML 1000 ML IV (16:50)
[2024-09-15 17:04] LABS: Glucose Urine UA NEGATIVE (NEGATIVE)
[2024-09-15] MEDS: DIPHENHYDRAMINE HCL 50 MG/ML VIAL 25 MG IVP (17:05)
[2024-09-15] MEDS: PROCHLORPERAZINE 10 MG/2 ML VIAL IV (17:05)
[2024-09-15 17:06] LABS: Hematocrit 33.8 % (36.0-48.0); Hemoglobin 11.3 g/dL (12.0-16.0); Immature Granulocytes Abs Auto 0.01 10^3/uL (0.00-0.03); Immature Granulocytes Pct Auto 0.2 % (0.0-0.5); Lymphocytes Absolute Auto 2.0 10^3/uL (1.2-3.8); Mean Corpuscular HGB Conc 33.4 g/dL (29.9-35.2); Mean Corpuscular Hemoglobin 29.7 pg (26.7-34.0); Mean Corpuscular Volume 88.9 fL (81.0-99.0); Platelet Count 388 10^3/uL (150-450); Red Blood Count 3.80 10^6/uL (4.20-5.40); White Blood Count 4.6 10^3/uL (4.0-11.0)
[2024-09-15 17:14] LABS: Magnesium 1.7 mg/dL (1.8-2.4)
[2024-09-15 17:14] LABS: Cast Seen? NONE SEEN #/LPF (NONE SEEN); Crystals Seen? None Seen #/HPF (None Seen); Urine Culture Indicated NO
[2024-09-15 17:15] LABS: Anion Gap 14.1; Blood Urea Nitrogen 6.0 mg/dL (7.0-18.0); Calcium 8.4 mg/dL (8.5-10.1); Carbon Dioxide 24.5 mmol/L (21.0-32.0); Chloride 107 mmol/L (98-107); Estimated GFR (African America >60 (>=60 mL/min/1.73m^2); Estimated GFR (Non-African Ame >60 (>=60 mL/min/1.73m^2); Glucose 90 mg/dL (74-106); Potassium 3.6 mmol/L (3.5-5.1); Sodium 142 mmol/L (136-145)
[2024-09-15 17:32] LABS: Lactate/Lactic Acid 0.6 mmol/L (0.4-2.0)
== END 2024-09-15 18:07 | disposition home or self-care (01) ==
PROVIDERS: Emergency Provider Emergency Medicine; PCP Family Medicine
DX: R11.0 Nausea (principal); Z90.49 Acquired absence of other specified parts of digestive tract; Z98.84 Bariatric surgery status; Z90.710 Acquired absence of both cervix and uterus
CPT/HCPCS: 36415; 71045; 80048; 81001; 83605; 83735; 85025; 93005; 96374; 96375; 99285; J0780; J1200

== ENCOUNTER 2024-09-18 09:51 | Outpatient (OUT) | payer MEDICAID, SELFPAY ==
--- OUTSIDE RECORDS SUMMARY | 2024-09-18 09:54 | XMS_ITS | Encounter Summary ---
Author Organization [facility] Address [address] [place] [address] Care Team Providers Care Boom Pump Operator Name Role Phone VanessaAnna hendricks GENERAL OPERATIONS MANAGER Unavailable Unallocated, Noms Provider Primary Care Provi pako Tj Najera Unavailable [phone] Thomas Alas MD Primary Care Provider [phone] Encounter Details Date Type Department Care Team (Late st Contact Info) Description 11/20/2022 Abstract [facility] [address] [place] [address] Tj Najera, [place] [address] [facility] [place] [address] Social History Tobacco Use Types [...] on filedocumented in this encounter Care Teams Boom Pump Operator Relationship Specialty Start Date End Date Unallocated, Noms ProviderMD [address] [place] [address] PCP - General 07/23/22 12/13/23 Tj Najera PA [address] [place] [address] PCP - Medical [facility] 07/16/22 04/24/23 Thomas Alas MD [address] [place] [address] PCP - General Family Medicine 12/14/23 Anna Mendez NP [address] [place] [address] Referring Physician Family Medicine 07/23/22 documented as of this encounter
--- OUTSIDE RECORDS SUMMARY | 2024-09-18 09:54 | XMS_ITS | Clinical Summary ---
Author Organization [facility] Address [address] [facility] [address], [address] [place] [address] Care Team Providers Care Service Worker Helper Name Role Phone Anna Mendez APRN - ZEYAD Primary Care Provider [phone] Allergies Active Allergy Reactions Criticality Noted Date [...] Garcia Ex-Spouse Primary Decision Maker Care Teams Service Worker Helper Relationship Specialty Start Date End Date Anna Mendez APRN - ZEYAD [address] [place] [address] PCP - General 11/28/22
--- OUTSIDE RECORDS SUMMARY | 2024-09-18 09:54 | XMS_ITS | Encounter Summary ---
Author Organization [facility] tem Address [id number] [address] [place] [address] Care Team Providers Care Link Trainer Maintenance Worker Name Role Phone No Pcp, No Pcp Primary Care Provider Unavailabl e Reason for Visit * Reason Comments Med Refill Encounter Details Date Type Department Care Team (Late st Contact Info) Description 09/17/2019 Refill Maternal- Medicine at [facility] [address] [place] [id number] Marc Martines MD [address] [facility], [address] [place] [address] Gestational diabetes mellitus (GDM) controlled on oral [...] documented as of this encounter Care Teams Link Trainer Maintenance Worker Relationship Specialty Start Date End Date No Pcp, [place] [address] PCP - General Family Medicine 09/22/17 documented as of this encounter
--- OUTSIDE RECORDS SUMMARY | 2024-09-18 09:54 | XMS_ITS | Clinical Summary ---
Author Organization [facility] tem Address [id number] [address] [place] [address] Care Team Providers Care Comfort Station Supervisor Name Role Phone No Pcp, No Pcp [...] Noted Date Diagnosed Date Hypothyroidism affecting in [facility] 09/22/2017 Family History Medical History Relation [...] on file Insurance [employer] Care Teams Comfort Station Supervisor Relationship Specialty Start Date End Date No Pcp, [place] [address] PCP - General Family Medicine 09/22/17
--- OUTSIDE RECORDS SUMMARY | 2024-09-18 09:54 | XMS_ITS | Encounter Summary ---
Author Organization [facility] Address [address] [place] [address] Care Team Providers Care Dean Of Men Name Role Phone Anna Mendez PRECINCT POLICE LIEUTENANT Unavailable Unallocated, Noms Provider Primary Care Provi pako Tj Najera Unavailable [phone] Thomas Alas MD Primary Care Provider [phone] Encounter Details Date Type Department Care Team (Late st Contact Info) Description 10/05/2022 Abstract [facility] [address] [place] [address] Tj Najera, PA [address] [facility] [place] [address] Social History Tobacco Use Types [...] on filedocumented in this encounter Care Teams Dean Of Men Relationship Specialty Start Date End Date Unallocated, Noms Provider, [address] [address] PCP - General 07/23/22 12/13/23 Tj Najera PA [address] [place] [address] PCP - Medical [facility] 07/16/22 04/24/23 Thomas Alas MD [address] [place] [address] PCP - General Family Medicine 12/14/23 Anna Mendez NP [address] [place] [address] Referring Physician Family Medicine 07/23/22 documented as of this encounter
--- OUTSIDE RECORDS SUMMARY | 2024-09-18 09:54 | XMS_ITS | Encounter Summary ---
Author Organization [facility] Address [address] [place] [address] Care Team Providers Care Rehanger Name Role Phone Anna Mendez SMOKEHOUSE WORKER Unavailable Unallocated, Noms Provider Primary Care Provi pako Tj Najera Unavailable [phone] Thomas Alas MD Primary Care Provider [phone] Encounter Details Date Type Department Care Team (Late st Contact Info) Description 10/30/2022 Abstract [facility] [address] [place] [address] Tj Najera, PA [address] [facility] [place] [address] Social History Tobacco Use Types [...] on filedocumented in this encounter Care Teams Rehanger Relationship Specialty Start Date End Date Unallocated, Noms Provider, [address] [place] [address] PCP - General 07/23/22 12/13/23 Tj Najera PA [address] [place] [address] PCP - Medical [facility] 07/16/22 04/24/23 Thomas Alas MD [address] [place] [address] PCP - General Family Medicine 12/14/23 Anna Mendez NP [address] [place] [address] Referring Physician Family Medicine 07/23/22 documented as of this encounter
--- OUTSIDE RECORDS SUMMARY | 2024-09-18 09:54 | XMS_ITS | Encounter Summary ---
Author Organization [facility] tem Address [id number] [address] [place] [address] Care Team Providers Care Tank Builder Helper Name Role Phone No Pcp, No Pcp Primary Care Provider Unavailabl e Encounter Details Date Type Department Care Team (Late st Contact Info) Description 09/28/2017 Orders Only Maternal- Medicine at [facility] [address] [place] [id number] Holger Alcala MD [address] [facility] [address] [place] [address] Social History Tobacco Use Types Packs/Day Years [...] on filedocumented in this encounter Care Teams Tank Builder Helper Relationship Specialty Start Date End Date No Pcp, [place] [address] PCP - General Family Medicine 09/22/17 documented as of this encounter
--- OUTSIDE RECORDS SUMMARY | 2024-09-18 09:54 | XMS_ITS | Encounter Summary ---
Author Organization [facility] Address [address] [place] [address] Care Team Providers Care Registered Respiratory Technician Name Role Phone Anna Mendez CAPSULE FILLER Unavailable Unallocated, Noms Provider Primary Care Provi pako Thomas Alas MD Primary Care Provider [phone] Encounter Details Date Type Department Care Team (Late st Contact Info) Description 10/29/2023 Abstract [facility] [address] [place] [address] Vero Medeiros LPN [address] [place] [id number] Social History Tobacco Use Types Packs/Day Years [...] on filedocumented in this encounter Care Teams Registered Respiratory Technician Relationship Specialty Start Date End Date Unallocated, [place] [address] PCP - General 07/23/22 12/13/23 Thomas Alas MD [address] [place] [address] PCP - General Family Medicine 12/14/23 Anna Mendez NP [address] [place] [address] Referring Physician Family Medicine 07/23/22 documented as of this encounter
--- OUTSIDE RECORDS SUMMARY | 2024-09-18 09:54 | XMS_ITS | Clinical Summary ---
Author Organization [facility] Healthcare Address [address] [place] [address] Care Team Providers Care Permanent Waver Name Role Phone Anna Mendez ELASTIC TAPE INSERTER Unavailable Thomas Alas MD Primary Care Provider [phone] Allergies Active Allergy Reactions Criticality Noted Date [...] 06/09/19 23 Active Lancets (OneTouch Delica Plus Urfnza87L) misc USE TO TEST BLOOD SUGAR TWICE [...] Hypertensive disorder 09/13/2017 39 weeks gestation of ([facility]) 2016 Polycystic ovaries 10/02/2013 Asthma without status [...] Health Maintenance Insurance [employer] Care Teams Permanent Waver Relationship Specialty Start Date End Date Thomas Alas MD [address] [place] [address] PCP - General Family Medicine 12/14/23 Anna Mendez NP [address] [place] [address] Referring Physician Family Medicine 07/23/22
--- OUTSIDE RECORDS SUMMARY | 2024-09-18 09:54 | XMS_ITS | Encounter Summary ---
Author Organization [facility] Address [address] [place] [address] Care Team Providers Care Personal Lines Insurance Agent Name Role Phone Anna Mendez WINE MANAGER Unavailable Unallocated, Noms Provider Primary Care Provi pako Tj Najera PA Unavailable [phone] Thomas Alas MD Primary Care Provider [phone] Encounter Details Date Type Department Care Team (Late st Contact Info) Description 09/07/2022 Abstract [facility] [address] [place] [address] Tj Najera, PA [address] [facility] [place] [address] Social History Tobacco Use Types [...] on filedocumented in this encounter Care Teams Personal Lines Insurance Agent Relationship Specialty Start Date End Date Unallocated, Noms Provider, [address] [place] [address] PCP - General 07/23/22 12/13/23 Tj Najera PA [address] [place] [address] PCP - Medical [facility] 07/16/22 04/24/23 Thomas Alas MD [address] [place] [address] PCP - General Family Medicine 12/14/23 Anna Mendez NP [address] [place] [address] Referring Physician Family Medicine 07/23/22 documented as of this encounter
--- OUTSIDE RECORDS SUMMARY | 2024-09-18 09:54 | XMS_ITS | Clinical Summary ---
Author Organization [facility] Address [address] [place] [address] Care Team Providers Care Rating Examiner Name Role Phone Thomas Alas MD Primary Care Provider [phone] Allergies Active Allergy Reactions Criticality Noted Date [...] morning. Active ergocalciferol (Vitamin D-2) 1.25 MG (63897 Units) capsule Take 50,000 Units by mouth [...] post J-tube removal. - CT scan from [facility] showing no abscess. - Infectious disease recommendations appreciated, continue with ceftriaxone. - Repeat blood cultures on 08/16: NGTD - central line in place, does not look like infected, continue monitoring, central line care. Assessment & Plan (08/18/2024 12:20 PM EDT): - source is likely the cellulitis around the J-tube status post J-tube removal. - CT scan from [facility] showing no abscess. - Infectious [...] post J-tube removal. - CT scan from [facility] showing no abscess. - Infectious disease recommendations appreciated, continue with ceftriaxone. - Repeat blood cultures on 08/16: NGTD - central line in place, does not look like infected, continue monitoring, central line care. Assessment & Plan (08/18/2024 12:20 PM EDT): - source is likely the cellulitis around the J-tube status post J-tube removal. - CT scan from [facility] showing no abscess. - Infectious [...] and scheduled tramadol. Continue with as needed Iliamna. Assessment & Plan (08/18/2024 12:20 PM EDT): - continue with home meds including fentanyl patch and scheduled tramadol. Continue with as needed Iliamna. MALT (mucosa associated lymphoid tissue) 025 Assessment [...] daily DVT prophylaxis is VTE protocols per [facility] prophy Protonix Monitor labs) Obtain blood [...] Department Care Team Description 08/20/2024 Orders Only [facility] [address] [place] [address] Mikayla Jennings PA-C Wound cellulitis (Primary Dx) 08/20/2024 Orders Only [facility] [address] [place] [address] Mikayla Jennings PA-C Wound cellulitis (Primary Dx) 08/16/2024 8:48 PM EDT - 08/20/2024 3:55 PM EDT Hospital Encounter [facility] 5AB[facility] Surgery Stepdown [address] [place] [address] Sandeep Casey MD Mansur, Sarmed, MD Okoro, Bonaventure, MD Bacteremia (Primary Dx) Discharge Disposition: Home or Self Care () 08/16/2024 Travel from Last 3 Months Social History Tobacco Use Types Packs/Day Years Used Date Smoking Tobacco: Never Smokeless Tobacco: Never Tobacco Cessation:Counseling Given: Not Answered [facility] Utilities Answer Date Recorded In the past [...] any time in the past 12 [facility], were you homeless or living in a snf (including now)? No 08/16/2024 Hunger Vital Sign [...] of14 resultswithin the time period is included. [facility] Glucose POC 122(H) 70 - 105 mg/dL 08/20/2024 11:30 AM EDT [facility] ([facility]) Comment:[email or web address] Blood Capillary blood specimen / Unknown 08/20/2024 11:10 AM EDT 08/20/2024 11:30 AM EDT Narrative [facility] ([facility]) - 08/20/2024 11:30 AM EDT Waived Testing in the ED is performed under the ED CLIA certificate #[id number]. us Mauricio Garcia MD LAB BLOOD ORDERABLES Final Resu lt [facility] ([facility]) [address] [place] [address] * (ABNORMAL) CBC (08/20/2024 5:17 AM EDT) Only the most recent of4 resultswithin the time period is included. [facility] Auto WBC 5.02 4.00 - 10.60 10*3/uL 08/20/2024 6:20 AM EDT [facility] ([facility]) RBC 3.02(L) 3.80 - 5.00 10*6/uL 08/20/2024 6:20 AM EDT [facility] ([facility]) Hemoglobin 9.1(L) 12.0 - 15.0 g/dL 08/20/2024 6:20 AM EDT [facility] ([facility]) Hematocrit 29.1(L) 36.0 - 45.0 % 08/20/2024 6:20 AM EDT [facility] ([facility]) MCV 96.4 82.0 - 98.0 fL 08/20/2024 6:20 AM EDT [facility] ([facility]) MCH 30.1 27.0 - 33.0 pg 08/20/2024 6:20 AM EDT [facility] ([facility]) MCHC 31.3(L) 32.0 - 35.0 g/dL 08/20/2024 6:20 AM EDT [facility] ([facility]) RDW 13.7 11.5 - 15.0 % 08/20/2024 6:20 AM EDT [facility] ([facility]) Platelets 336 150 - 400 10*3/uL 08/20/2024 6:20 AM EDT [facility] ([facility]) Blood Blood sample taken from central line / Unknown Existing Catheter / Unknown 08/20/2024 5:17 AM EDT 08/20/2024 5:58 AM EDT us Mauricio Garcia MD LAB BLOOD ORDERABLES Final Resu lt [facility] ([facility]) [address] [place] [address] * (ABNORMAL) Basic metabolic panel (08/20/2024 5:17 AM EDT) Only the most recent of5 resultswithin the time period is included. Sodium 142 136 - 145 mmol/L 08/20/2024 6:27 AM EDT [facility] ([facility]) Potassium 3.7 3.5 - 5.1 mmol/L 08/20/2024 6:27 AM EDT [facility] ([facility]) Chloride 109(H) 98 - 107 mmol/L 08/20/2024 6:27 AM EDT [facility] ([facility]) CO2 26 21 - 31 mmol/L 08/20/2024 6:27 AM EDT [facility] ([facility]) BUN 4(L) 7 - 25 mg/dL 08/20/2024 6:27 AM EDT [facility] ([facility]) Creatinine 0.54(L) 0.60 - 1.20 mg/dL 08/20/2024 6:27 AM EDT [facility] ([facility]) Glucose 81 70 - 100 mg/dL 08/20/2024 6:27 AM EDT [facility] ([facility]) Calcium 8.4(L) 8.6 - 10.3 mg/dL 08/20/2024 6:27 AM EDT [facility] ([facility]) Anion Gap 11 7 - 20 mmol/L 08/20/2024 6:27 AM EDT [facility] ([facility]) eGFR 123.1 >60.0 mL/min/1. 73m*2 08/20/2024 6:27 AM EDT [facility] JAZMINE) Comment:[facility] s estimated glomerular filtration rate (eGFR) [...] BUN/Creatinine Ratio 7.4 07/2024 6:27 AM EDT [facility] ([facility]) Blood Blood sample taken from central line / Unknown Existing Catheter / Unknown 08/20/2024 5:17 AM EDT 08/20/2024 5:57 AM EDT us Mauricio Garcia MD LAB BLOOD ORDERABLES Final Resu lt [facility]) [address] [place] [address] * CT abdomen pelvis w IV contrast [...] to ensure resolution. Electronically signed: Anabelle Mason. us Mauricio Garcia MD [facility] CT PROCEDURES Final Result * XR chest [...] Electronically signed: Brad Willingham. Mauricio Garcia MD [facility] XR PROCEDURES Final Result * Urinalysis (08/17/2024 6:26 AM EDT) Color, Urine Yellow Colorless, Yellow, Light-Yellow 08/17/2024 6:45 AM EDT [facility] ([facility]) Clarity, Urine Clear Clear 08/17/2024 6:45 AM EDT [facility] ([facility]) pH, Urine 6.0 5.0 - 8.0 pH 08/17/2024 6:45 AM EDT [facility] ([facility]) Leukocytes, Urine Negative Negative 08/17/2024 6:45 AM EDT [facility] ([facility]) Nitrite, Urine Negative Negative 08/17/2024 6:45 AM EDT [facility] ([facility]) Protein, Urine Negative Negative mg/dL 08/17/2024 6:45 AM EDT [facility] ([facility]) Glucose, Urine Normal Normal mg/dL 08/18/19 6:45 AM EDT [facility] ([facility]) Bilirubin, Urine Negative Negative 08/17/2024 6:45 AM EDT [facility] ([facility]) Specific [place], Urine 1.019 1.010 - 1.030 08/17/2024 6:45 AM EDT [facility] ([facility]) Ketones, Urine Negative Negative mg/dL 08/17/2024 6:45 AM EDT [facility] ([facility]) Blood, Urine Negative Negative 08/17/2024 6:45 AM EDT [facility] ([facility]) Urobilinogen, Urine Normal Normal mg/dL 08/17/2024 6:45 AM EDT [facility] ([facility]) Urine Urine specimen obtained by clean catch procedure / Unknown Non-blood Collection / Unknown 08/17/2024 6:26 AM EDT 08/17/2024 6:32 AM EDT Narrative [facility] ([facility]) - 08/17/2024 6:45 AM EDT Microscopics not performed on urines with negative chemical reactions unless requested on original order. Jace Corley PA-C LAB URINE ORDERABLES Final Res ult [facility]) [address] [place] [id number] * (ABNORMAL) CBC auto differential (08/16/2024 9:37 PM EDT) Auto WBC 4.37 4.00 - 10.60 10*3/uL 08/16/2024 10:08 PM EDT [facility] ([facility]) RBC 2.95(L) 3.80 - 5.00 10*6/uL 08/16/2024 10:08 PM EDT [facility] ([facility]) Hemoglobin 9.0(L) 12.0 - 15.0 g/dL 08/16/2024 10:08 PM [facility] ([facility]) Hematocrit 27.8(L) 36.0 - 45.0 % 08/16/2024 10:08 PM T [facility] ([facility]) MCV 94.2 82.0 - 98.0 fL 08/16/2024 10:08 PM [facility] ([facility]) MCH 30.5 27.0 - 33.0 pg 08/16/2024 10:08 PM [facility] ([facility]) MCHC 32.4 32.0 - 35.0 g/dL 08/16/2024 10:08 PM [facility] ([facility]) RDW 14.2 11.5 - 15.0 % 08/16/2024 10:08 PM [facility] ([facility]) Neutrophils % 61.1 40.0 - 72.0 % 08/16/2024 10:08 PM [facility] ([facility]) Lymphocytes % 28.8 20.0 - 45.0 % 08/16/2024 10:08 PM [facility] ([facility]) Monocytes % 8.0 5.0 - 12.0 % 08/16/2024 10:08 PM [facility] ([facility]) Eosinophils % 1.4 0.0 - 6.0 % 08/16/2024 10:08 PM [facility] ([facility]) Basophils % 0.2 0.0 - 1.0 % 08/16/2024 10:08 PM [facility] ([facility]) Neutrophils Absolute 2.67 1.60 - 7.60 10*3/uL 08/16/2024 10:08 PM [facility] ([facility]) Lymphocytes Absolute 1.26 1.20 - 4.00 10*3/uL 08/16/2024 10:08 PM [facility] ([facility]) Monocytes Absolute 0.35 0.10 - 1.00 10*3/uL 08/16/2024 10:08 PM [facility] ([facility]) Eosinophils Absolute 0.06 0.00 - 0.50 10*3/uL 08/16/2024 10:08 PM [facility] ([facility]) Basophils Absolute 0.01 0.00 - 0.20 10*3/uL 08/16/2024 10:08 PM EDT [facility] ([facility]) Platelets 227 150 - 400 10*3/uL 08/16/2024 10:08 PM EDT [facility] ([facility]) nRBC % 0.0 0 % 08/16/2024 10:08 PM EDT [facility] ([facility]) Immature Granulocytes % 0.5 0.0 - 1.0 % 08/16/2024 10:08 PM EDT [facility] ([facility]) Immature Granulocytes Absolute 0.02 0.00 - 0.20 10*3/uL 08/16/2024 10:08 PM EDT [facility] ([facility]) Blood Venous blood specimen / Unknown Existing Catheter / Unknown 08/16/2024 9:37 PM EDT 08/16/2024 10:00 PM EDT Jace INAMN-Elroy LAB BLOOD ORDERABLES Final Res ult [facility]) [address] [place], [place] [id number] * Blood culture, peripheral #2 (08/16/2024 9:37 PM EDT) Only the most recent of2 resultswithin the time period is included. Blood Culture No growth at 5 days SANDHYA 08/21/2024 10:01 PM EDT [facility]) Blood Venous blood specimen / Unknown Venipuncture / Unknown 08/16/2024 9:37 PM EDT 08/16/2024 9:59 PM EDT Jace INMAN-C LAB MICROBIOLOGY - GENERAL ORD ERABLES Final Result [facility]) [address] [place] [address] * (ABNORMAL) Magnesium (08/16/2024 9:37 PM EDT) Magnesium 1.8(L) 1.9 - 2.7 mg/dL 08/16/2024 10:24 PM EDT [facility] ([facility]) Blood Venous blood specimen / Unknown Existing Catheter / Unknown 08/16/2024 9:37 PM EDT 08/16/2024 10:00 PM EDT Jace INMAN-C LAB BLOOD ORDERABLES Final Res ult [facility] ([facility]) [address] [place] [address] * (ABNORMAL) Lactic acid, plasma (08/16/2024 9:37 PM EDT) Lactate 0.4(L) 0.5 - 2.2 mmol/L 08/16/2024 10:28 PM EDT [facility] ([facility]) Blood Venous blood specimen / Unknown Existing Catheter / Unknown 08/16/2024 9:37 PM EDT 08/16/2024 9:59 PM EDT Jace INMAN-C LAB BLOOD ORDERABLES Final Res ult [facility] ([facility]) [address] [place] [address] * (ABNORMAL) Hepatic function panel (08/16/2024 9:37 PM EDT) Total Bilirubin 0.4 0.3 - 1.0 mg/dL 08/16/2024 10:24 PM EDT [facility] ([facility]) Bilirubin, Direct 0.1 0 - 0.2 mg/dL 08/16/2024 10:24 PM EDT [facility] ([facility]) Alkaline Phosphatase 73 34 - 104 U/L 08/16/2024 10:24 PM EDT [facility] ([facility]) AST 21 13 - 39 U/L 08/16/2024 10:24 PM EDT [facility] ([facility]) ALT (SGPT) 10 7 - 52 U/L 08/16/2024 10:24 PM EDT [facility] ([facility]) Total Protein 5.4(L) 6.0 - 8.3 g/dL 08/16/2024 10:24 PM EDT [facility] ([facility]) Albumin 2.9(L) 3.5 - 5.7 g/dL 08/16/2024 10:24 PM EDT [facility] ([facility]) Blood Venous blood specimen / Unknown Existing Catheter / Unknown 08/16/2024 9:37 PM EDT 08/16/2024 10:00 PM EDT us Jace Corley PA-C LAB BLOOD ORDERABLES Final Res ult [facility] ([facility]) [address] [facility] [place] [address] from Last 3 Months Insurance [facility] [employer] [facility] Advance Directives * Full Code (Latest Code Status on File) Date Activated Date Inactivated Comments 08/16/2024 9:21 PM 08/20/2024 5:55 PM Care Teams Rating Examiner Relationship Specialty Start Date End Date Thomas Alas MD [address] [facility] [address] [address] PCP - General Family Medicine 08/17/24
--- OUTSIDE RECORDS SUMMARY | 2024-09-18 09:55 | XMS_ITS | Clinical Summary ---
Author Organization [facility] Address [address] [place] [address] Care Team Providers Care Cloth Mercerizer Operator Name Role Phone Thomas Alas MD Primary Care Provider [phone] Allergies Active Allergy Reactions Criticality Noted Date [...] age to complete this topic Insurance MMO [facility] [employer] Care Teams Cloth Mercerizer Operator Relationship Specialty Start Date End Date Thomas Alas MD PCP - General 12/30/23
--- OUTSIDE RECORDS SUMMARY | 2024-09-18 09:55 | XMS_ITS | Encounter Summary ---
Author Organization [facility] [employer] enter Address [address] [place] [address] Care Team Providers Care Belt Operator Name Role Phone Thomas Alas MD Primary Care Provider [phone] Reason for Visit * Reason Onset Date Comments Appointment 04/18/2024 Encounter Details Date Type Department Care Team (Late st Contact Info) Description 04/18/2024 Telephone Central Scheduling [address] [place] [phone] Joanne Shi Appointment Social History Tobacco [...] until 2025. The patient also follows with [facility]. I would recommend maintaining follow up as scheduled and in the meanwhile look for any clinic cancellations for which she could be added, thank you. * Telephone Encounter - Joanne Cooperamaisabelle - 04/18/2024 4:33 PM EST GHN TRIAGE (NON-SYMPTOM) MESSAGE Provider: Bina Subject of call: Appointment Reason for call: Dr. Curran told patient to eturn in about 6 months (around 06/28/2024). First available appt is 05/2025. Please advise Preferred call back time: Anytime [phone] Will warm connect patient to nursing line [...] on filedocumented in this encounter Care Teams Belt Operator Relationship Specialty Start Date End Date Thomas Alas MD PCP - General 12/30/23 documented as of this encounter
--- OUTSIDE RECORDS SUMMARY | 2024-09-18 09:55 | XMS_ITS | Clinical Summary ---
Author Organization [facility] Address [address] [place] [address] Phone Care Team Providers Care Steam Shovel Operating Engineer Name Role Phone Generic Provider, No Assigned [...] from your doctor or pharmacy? Never 06/30/2023 [facility] Utilities Answer Date Recorded In the past 12 months has [facility] [employer] gas, oil, or water [employer] threatened to shut off services in your [...] How often do you attend chur or protestant services? More than 4 times per year [...] Recorded Patient Health Questionnaire-2 Score 2 06/30/2023 [facility] - Occupational [...] Description 10/24/2024 3:15 PM EDT Office Visit [facility] Physician Fabio [address] [place] [id number] [place] [address] [place], [place] [address] Health Maintenance Due Date Last Done Comments [...] this topic Medical Devices Implanted Type Area Body Cleaner Device Identifier Shelf Expiration Date Model / Serial / Lot Membrane, Seprafilm, 5 X 6 In - [id number] Implanted:Qty : 1 on 03/05/2023 by Sherry Holley MD at [facility] Implant N/A: Abdomen [facility] [id number] 10/02/2023 [id number] / / [id number] Procedures Procedure Name Priority Date/Time Associated Diagnosis Comments POCT GLUCOSE Routine 07/03/2023 7:17 AM EDT RENAL FUNCTION PANEL Routine 07/02/2023 6:47 AM EDT from Last 3 Months or Most Recently Relevant to Health Maintenance Results * (ABNORMAL) POCT GLUCOSE (07/03/2023 7:17 AM EDT) [facility] POCT Glucose 121(H) 74 - 99 mg/dL 07/03/2023 7:24 AM EDT [facility] Blood Capillary blood specimen / Unknown 07/03/2023 7:17 AM EDT 07/03/2023 7:24 AM EDT us Kina Ann MD LAB POINT OF CARE TE ST DOCKED DEVICE UNSOLICITED RESULTS Final Result [facility] [address] [place], [place] [id number] * (ABNORMAL) Renal Function Panel (07/02/2023 6:47 AM EDT) [facility] Signature Glucose 101(H) 65 - 99 mg/dL 07/02/2023 7:53 AM EDT [facility] Sodium 137 133 - 145 mmol/L 07/02/2023 7:53 AM EDT [facility] Potassium 3.9 3.4 - 5.1 mmol/L 07/02/2023 7:53 AM EDT [facility] Chloride 103 97 - 107 mmol/L 07/02/2023 7:53 AM EDT [facility] Bicarbonate 23(L) 24 - 31 mmol/L 07/02/2023 7:53 AM EDT [facility] Urea Nitrogen 13 8 - 25 mg/dL 07/02/2023 7:53 AM EDT [facility] Creatinine 0.70 0.40 - 1.60 mg/dL 07/02/2023 7:53 AM EDT [facility] eGFR >90 >60 mL/min/1.7 3m*2 07/02/2023 7:53 AM EDT [facility] Comment: Calculations of estimated GFR are performed using the 2020 CKD-EPI Study Refit equation without the race variable for the IDMS-Traceable creatinine methods. https://jasn.asnjournals.org/content/early//ASN.9449517201 Calcium 8.6 8.5 - 10.4 mg/dL 07/02/2023 7:53 AM EDT [facility] Phosphorus 4.0 2.5 - 4.5 mg/dL 07/02/2023 7:53 AM EDT [facility] Albumin 4.0 3.5 - 5.0 g/dL 07/02/2023 7:53 AM EDT [facility] Anion Gap 11 <=19 mmol/L 07/02/2023 7:53 AM EDT [facility] Blood Venous blood specimen / Unknown 07/02/2023 6:47 AM EDT 07/02/2023 6:58 AM EDT Loreto Doty MD LAB BLOOD ORDERABLES F inal Result [facility] [id number] [place] [address] from Last 3 Months or Most Recently Relevant to Health Maintenance Insurance [facility]LY [facility] MEDICAID Advance Directives For more information, please contact: [phone] (Available ) * Full Code (Latest Code Status on File) Date Activated Date Inactivated Comments 03/05/2023 2:37 PM Question Answer Comments Plan of Care: Code Status Discussion Completed Decision Maker: Patient Care Teams Steam Shovel Operating Engineer Relationship Specialty Start Date End Date Generic Provider, No Assigned P[place], [place] [address] PCP - General [employer] Rater 06/29/23
--- NOTE | 2024-09-18 10:35 | PC.NURSE ---
1005 Called to lab to draw from rt chest chappell catheter, unble to obtain blood return or flush catheter without meeting resistance. had patient take deep breath arms above head, lean forward without success. patient states she gets TPN and fluids every night. relates to flushing this morning without any issues. instructed to contact [facility] who manages her chappell to see about getting cathflo ordered. verbalizes understanding
== END 2024-09-18 09:52 | disposition home or self-care (01) ==
LOC: LAB 09:52
PROVIDERS: PCP Family Medicine; Visit Provider Family Medicine
DX: A41.9 Sepsis, unspecified organism (principal)
CPT/HCPCS: 36415; 87040

== ENCOUNTER 2024-09-19 20:25 | Emergency (ER) | payer MEDICAID, SELFPAY ==
[2024-09-19 20:37] VITALS: BP 139/88; PULSE 75; TEMP 36.7; O2SAT 100; BMI 28.4
[2024-09-19 23:47] VITALS: BP 156/97; PULSE 73; TEMP 36.6; O2SAT 100
--- NOTE | 2024-09-19 23:50 | PC.NURSE ---
has a hodges with dressing and is capped off to her right chest wall. she states i have had 3 sepsis encounters in the past 3 mos and my family doctor thinks there may be a hole in the Hodges somewhere an we have stopped using it. it may be the source of the infections.
--- NOTE | 2024-09-20 00:31 | ED.GENADUL1 ---
HPI HPI - General Adult General Chief complaint: Recheck/Abnormal Lab/Rx Stated complaint: SEPSIS Time Seen by Provider: 09/20/24 00:00 Source: patient Mode of arrival: walk-in Limitations: no limitations History of Present Illness HPI narrative: patient has right Hodges catheter in place for past year for TPN. Had J tube feeding tube removed about 2 months ago. Describes recurrent episodes of sepsis without clear etiology. Had blood cultures at [facility] yesterday. Was called today that the culture was positive and advised to go to the ER. complains of nausea. No fever states she has limited ability for po intake due to intestinal failure patient was seen by GI fellow at [facility] with plan for exchange of her Hodges 09/22/24. This was reason the blood cultures were ordered. Related Data Home Medications ?Medication ?Instructions ?Recorded ?Confirmed hydroxyzine HCl 25 mg tablet 25 mg PO BID PRN anxiety 09/17/22 08/28/24 topiramate 100 mg tablet 100 mg PO BID 09/17/22 08/28/24 metoclopramide HCl 10 mg tablet 10 mg PO AC PRN nausea and vomiting 06/14/23 08/28/24 escitalopram oxalate 20 mg tablet 20 mg PO DAILY 06/15/23 08/28/24 levothyroxine 75 mcg tablet 75 mcg PO DAILY 06/15/23 08/28/24 acetaminophen 325 mg tablet (Pain 650 mg PO Q4H PRN pain 06/24/23 08/28/24 Relief (acetaminophen)) [facility] 03/29/24 08/16/24 Ultra Test strips) blood-glucose meter (OneTouch 03/29/24 08/16/24 Ultra2 Meter) blood-glucose sensor (FreeStyle 03/29/24 08/16/24 Hunter 3 Plus Sensor device) fentanyl 25 mcg/hr transdermal 1 patch transdermal Q72H 03/29/24 08/28/24 patch hydrocodone 5 mg-acetaminophen 325 1 tab PO Q4H PRN pain 03/29/24 08/28/24 mg tablet lancets 30 gauge (OneTouch Delica 03/29/24 08/16/24 Plus Lancet) omeprazole 40 mg capsule,delayed 40 mg PO BID 03/29/24 08/28/24 release pen needle, diabetic 32 gauge x 02/12/25 07/02/25 5/32 (BD Stefania 2nd Gen Pen Needle) prucalopride 2 mg tablet 2 mg PO DAILY 03/29/24 08/28/24 trazodone 100 mg tablet 100 mg PO .qhs 03/29/24 08/28/24 ergocalciferol (vitamin D2) 1,250 1,250 mcg PO .Q7 06/21/24 08/28/24 mcg (50,000 unit) capsule hydrocortisone 10 mg tablet 10 mg PO DAILY 08/16/24 08/28/24 mirtazapine 45 mg tablet 45 mg PO BEDTIME 08/16/24 08/28/24 ondansetron 4 mg disintegrating 8 mg PO Q4H PRN nausea and vomiting 08/16/24 08/28/24 tablet Previous Rx's ?Medication ?Instructions ?Recorded tramadol 50 mg tablet 50 mg PO Q6H PRN pain #28 tabs 06/16/23 Lactobacillus 1 tab PO BID #40 wafers 09/02/24 acidophilus-Lactbacill.bifidus 1 billion cell oral wafer cefdinir 300 mg capsule 300 mg PO Q12H 14 days #28 caps 09/02/24 methocarbamol 500 mg tablet 500 mg PO BID PRN Muscle spasm #0 09/02/24 tabs Allergies Allergy/AdvReac Type Severity Reaction Status Date / Time adhesive Allergy Rash Verified 09/19/24 20:37 NSAIDS (Non-Steroidal Allergy intolerance Verified 09/19/24 20:37 Anti-Inflamma codeine AdvReac Vomiting Verified 09/19/24 20:37 Opioid HPI Opioid Management Most Recent Opioid Data: Last Pain Scale 7 09/15/24, 16:33 Last ED Pain Assessment 09/19/24, 23:48 Last ORT Total Score 0 08/28/24, 18:16 Last ORT Risk Category Low Risk 08/28/24, 18:16 Ur Phencyclidine Scrn, (NEGATIVE) Negative 08/28/24, 14:10 Review of Systems ROS Status of ROS 10 or more systems reviewed and unremarkable except as noted in history and below [facility] Medical History (Updated 09/20/24 @ 05:24 by Gideon Espinoza MD) Hypoglycemia ?E16.2 - Hypoglycemia, unspecified (ICD-10) Gastroenteritis ?K52.9 - Noninfective gastroenteritis and colitis, unspecified (ICD-10) Feeding by G-tube ?Z93.1 - Gastrostomy status (ICD-10) Abdominal pain ?R10.9 - Unspecified abdominal pain (ICD-10) Small bowel intussusception ?K56.1 - Intussusception (ICD-10) Nausea and vomiting ?R11.2 - Nausea with vomiting, unspecified (ICD-10) Flank pain ?R10.9 - Unspecified abdominal pain (ICD-10) Abdominal pain ?R10.9 - Unspecified abdominal pain (ICD-10) Acute abdomen ?R10.0 - Acute abdomen (ICD-10) Intractable nausea and vomiting ?R11.2 - Nausea with vomiting, unspecified (ICD-10) Intractable abdominal pain ?R10.9 - Unspecified abdominal pain (ICD-10) Depression ?F32.A - Depression, unspecified (ICD-10) Asthma ?J45.909 - Unspecified asthma, uncomplicated (ICD-10) Dyspareunia Pelvic pain ?R10.2 - Pelvic and perineal pain (ICD-10) Ovarian cyst ?N83.209 - Unspecified ovarian cyst, unspecified side (ICD-10) PONV (postoperative nausea and vomiting) ?R11.2 - Nausea with vomiting, unspecified (ICD-10) ?Z98.890 - Other specified postprocedural states (ICD-10) PCOS (polycystic ovarian syndrome) ?E28.2 - Polycystic ovarian syndrome (ICD-10) Hypothyroidism (acquired) ?E03.9 - Hypothyroidism, unspecified (ICD-10) Anxiety ?F41.9 - Anxiety disorder, unspecified (ICD-10) GERD (gastroesophageal reflux disease) ?K21.9 - Gastro-esophageal reflux disease without esophagitis (ICD-10) Sleep apnea ?G47.30 - Sleep apnea, unspecified (ICD-10) Anemia ?D64.9 - Anemia, unspecified (ICD-10) Fibromyalgia ?M79.7 - Fibromyalgia (ICD-10) Syncope (07/07/13) ?R55 - Syncope and collapse (ICD-10) Shingles ?B02.9 - Zoster without complications (ICD-10) Headache ?R51.9 - Headache, unspecified (ICD-10) Migraine ?G43.909 - Migraine, unspecified, not intractable, without status migrainosus (ICD-10) Mechanical ileus (01/31/20) ?K56.609 - Unspecified intestinal obstruction, unspecified as to partial versus complete obstruction (ICD-10) COVID-19 (~02/2020) ?U07.1 - COVID-19 (ICD-10) Kidney stones ?N20.0 - Calculus of kidney (ICD-10) Surgical History S/P percutaneous endoscopic gastrostomy (PEG) tube placement ?Z93.1 - Gastrostomy status (ICD-10) 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 - Celiac artery compression syndrome (ICD-10) H/O shoulder surgery (2022) ?Z98.890 - Other specified postprocedural states (ICD-10) History of hip surgery ?Z98.890 - Other specified postprocedural states (ICD-10) S/P right knee arthroscopy ?Z98.890 - Other specified postprocedural states (ICD-10) S/P left knee arthroscopy ?Z98.890 - Other specified postprocedural states (ICD-10) Hx of tonsillectomy ?Z90.89 - Acquired absence of other organs (ICD-10) History of thoracic surgery (~2021) ?Z98.890 - Other specified postprocedural states (ICD-10) History of esophagogastroduodenoscopy (EGD) (10/04/13) ?Z98.890 - Other specified postprocedural states (ICD-10) History of cholecystectomy (10/06/13) ?Z90.49 - Acquired absence of other specified parts of digestive tract (ICD-10) Delivery by section (~2016) Delivery by section (01/17/18) H/O colonoscopy (~2018) ?Z98.890 - Other specified postprocedural states (ICD-10) S/P right knee arthroscopy (07/21/18) ?Z98.890 - Other specified postprocedural states (ICD-10) Delivery by section (06/19/19) History of appendectomy (09/25/19) ?Z90.49 - Acquired absence of other specified parts of digestive tract (ICD-10) H/O laparoscopy (11/10/19) ?Z98.890 - Other specified postprocedural states (ICD-10) History of liver biopsy (~04/2020) ?Z98.890 - Other specified postprocedural states (ICD-10) H/O laparoscopy (07/18/20) ?Z98.890 - Other specified postprocedural states (ICD-10) H/O arthroscopy of right knee (08/07/20) ?Z98.890 - Other specified postprocedural states (ICD-10) S/P laparoscopic sleeve gastrectomy (09/03/20) ?Z98.84 - Bariatric surgery status (ICD-10) H/O: hysterectomy (11/12/20) ?Z90.710 - Acquired absence of both cervix and uterus (ICD-10) History of hernia repair (03/20/21) ?Z98.890 - Other specified postprocedural states (ICD-10) ?Z87.19 - Personal history of other diseases of the digestive system (ICD-10) Family History Other Family history of cancer Family history of diabetes mellitus Family history of hypertension Family history of myocardial infarction PONV (postoperative nausea and vomiting) Social History (Updated 08/16/24 @ 04:44 by Shelley Wnog) Within the past year, how often did you have a drink containing alcohol: never Score interpretation: A score less than 3 is consistent with normal alcohol consumption. Smoking status: Never smoker Non-prescribed substance use: denies use Previous occupational history: disabled Known occupational exposures/hazards details: disabled Highest level of school completed/degree received: Master's degree Are you now , , , , never or living with a partner: In a typical week, how many times do you talk on the telephone with family, friends, or neighbors: 3 or more times per week How often do you get together with friends or relatives: twice per week How often do you attend scientologist or jewish services: 4 or more times per year Do you belong to any clubs or organizations such as scientologist groups unions, fraternal or athletic groups, or school groups: no Total score: 3 Score interpretation: A score of greater than or equal to 2 indicates the lowest level of social isolation. Little interest or pleasure in doing things: not at all Feeling down, depressed, or hopeless: not at all Feel stressed/tense/nervous/anxious/difficulty sleeping: to some extent Do you think of yourself as: straight/heterosexual Gender Identity: female Exam Constitutional Vital Signs, click to edit/add: Last Vital Signs Temp 97.9 F 09/19/24 23:47 Pulse 73 09/19/24 23:47 Resp 15 09/19/24 23:47 BP 156/97 H 09/19/24 23:47 Pulse Ox 100 09/19/24 23:47 Common normals: no apparent distress, average body habitus, oriented x3, no limitations, healthy appearing, alert and well nourished HENUT Common normals: normocephalic and head/scalp atraumatic Eye Common normals: EOMs intact bilaterally and conjunctivae normal Chest Other: Hodges catheter site looks good. No erythema or tenderness Cardio Common normals: regular rate, regular rhythm, S1 normal heart sound and S2 normal heart sound GI Common normals: Normal to inspection, nondistended, normoactive bowel sounds present and soft to palpation Other: former J tube site looks good Extremity Common normals: normal to inspection and full ROM Neuro Common normals: oriented x3, CN's II-XII intact bilaterally, moves all extremities and no focal motor deficits Psych Appearance: grossly normal Course Vital Signs Vital signs: Vital Signs Temperature 98.0 F 09/19/24 20:37 Pulse Rate 75 09/19/24 20:37 Respiratory Rate 19 09/19/24 20:37 Blood Pressure 139/88 09/19/24 20:37 Pulse Oximetry 100 09/19/24 20:37 Temperature 97.9 F 09/19/24 23:47 Pulse Rate 73 09/19/24 23:47 Respiratory Rate 15 09/19/24 23:47 Blood Pressure 156/97 H 09/19/24 23:47 Pulse Oximetry 100 09/19/24 23:47 Medical Decision Making MDM Narrative Medical decision making narrative: patient presents to ER due to positive blood cultures that were drawn 2 days ago at [facility]. She has a Hodges catheter in place that is scheduled to be removed and replaced with a new catheter. She has no symptoms clinically to support diagnosis of sepsis. Discussed with GI fellow at [facility] who states blood cultures were positive for gram + cocci in chains and clusters. Labs obained in the ER are all normal including WBC 5.2 and normal lactic acid. normal cxray. Normal vitals and afebrile. GI states they will follow up with her in the AM. Will add CRP inflamatory marker CRP and UA are all normal. No findings to suggest acute process at this time. Patient informed of the follow up plan with GI Lab Data Labs: Lab Results 09/20/24 09/20/24 Range/Units 00:14 04:30 WBC 5.2 (4.0-11.0) 10^3/uL RBC 4.09 L (4.20-5.40) 10^6/uL Hgb 12.1 (12.0-16.0) g/dL Hct 37.4 (36.0-48.0) % MCV 91.4 (81.0-99.0) fL MCH 29.6 (26.7-34.0) pg MCHC 32.4 (29.9-35.2) g/dL RDW 14.0 (11.0-15.0) % Plt Count 385 (150-450) 10^3/uL MPV 10.3 (9.5-13.5) fL Neut % (Auto) 55.3 (43.0-75.0) % Lymph % (Auto) 34.8 (20.5-60.0) % [place] % (Auto) 6.4 (1.7-12.0) % Eos % (Auto) 2.5 (0.9-7.0) % Baso % (Auto) 0.8 (0.2-2.0) % Neut # (Auto) 2.9 (1.4-6.5) 10^3/uL Lymph # (Auto) 1.8 (1.2-3.8) 10^3/uL [place] # (Auto) 0.3 (0.3-0.8) 10^3/uL Eos # (Auto) 0.1 (0.0-0.7) 10^3/uL Baso # (Auto) 0.0 (0.0-0.1) 10^3/uL Abs Immat Gran (auto) 0.01 (0.00-0.03) 10^3/uL Imm/Tot Granulo (auto) 0.2 (0.0-0.5) % Sodium 145 (136-145) mmol/L Potassium 3.7 (3.5-5.1) mmol/L Chloride 110 H (98-107) mmol/L Carbon Dioxide 25.9 (21.0-32.0) mmol/L Anion Gap 12.8 BUN 7.0 (7.0-18.0) mg/dL Creatinine 0.63 (0.55-1.02) mg/dL Est GFR ( Amer) >60 (>=60 mL/min/1.73m^2) Est GFR (Non-Af Amer) >60 (>=60 mL/min/1.73m^2) BUN/Creatinine Ratio 11.1 Glucose 83 (74-106) mg/dL Lactate 0.9 (0.4-2.0) mmol/L Calcium 8.9 (8.5-10.1) mg/dL C-Reactive Protein <0.50 (<=0.50) mg/dL Urine Color Lt. yellow (YELLOW) Urine Clarity Clear (CLEAR) Urine pH 6.5 (5.0-9.0) Ur Specific [place] 1.010 (1.005-1.025) Urine Protein Negative (NEG/TRACE) mg/dL Urine Glucose (UA) Negative (NEGATIVE) mg/dL Urine Ketones Negative (NEGATIVE) mg/dL Urine Occult Blood Negative (NEGATIVE) Urine Nitrite Negative (NEGATIVE) Urine Bilirubin Negative (NEGATIVE) Urine Urobilinogen 0.2 (0.2-1.0) EU/dL Ur Leukocyte Esterase Negative (NEGATIVE) Urine RBC None seen (0-2) #/HPF Urine WBC None seen (NONE SEEN) #/HPF Ur Squamous Epith Cells Rare (NONE/RARE) #/LPF Urine Crystals None seen (None Seen) #/HPF Urine Bacteria None seen (NONE SEEN) #/HPF Urine Casts None seen (NONE SEEN) #/LPF Urine Mucus None seen (NONE SEEN) Ur Culture Indicated? No Discharge Plan Discharge Chief Complaint: Recheck/Abnormal Lab/Rx Clinical Impression: Abnormal laboratory test, Abdominal pain Patient Disposition: Home, Self-Care Prescriptions / Home Meds: No Action (DME) blood-glucose meter [OneTouch Ultra2 Meter] Misc MISCELLANEOUS (DME) OneTouch Ultra Test Strip MISCELLANEOUS fentanyl 25 mcg/hr patch 72 hour 1 patch transdermal Q72H (DME) FreeStyle Hunter 3 Plus Sensor Device MISCELLANEOUS hydrocodone-acetaminophen 5-325 mg tablet 1 tab PO Q4H PRN (Reason: pain) (DME) lancets [OneTouch Delica Plus Lancet] 30 gauge misc MISCELLANEOUS omeprazole 40 mg capsule,delayed release(DR/EC) 40 mg PO BID (DME) pen needle, diabetic [BD Stefania 2nd Gen Pen Needle] 32 gauge x 5/32 needle MISCELLANEOUS prucalopride 2 mg tablet 2 mg PO DAILY trazodone 100 mg tablet 100 mg PO .qhs mirtazapine 45 mg tablet 45 mg PO BEDTIME hydrocortisone 10 mg tablet 10 mg PO DAILY ondansetron 4 mg tablet,disintegrating 8 mg PO Q4H PRN (Reason: nausea and vomiting) methocarbamol 500 mg tablet 500 mg PO BID PRN (Reason: Muscle spasm) Qty: 0 0RF cefdinir 300 mg capsule 300 mg PO Q12H 14 Days Qty: 28 0RF Lactobacillus acidoph-L. bifid 1 billion cell wafer 1 tab PO BID Qty: 40 0RF Rx Instructions: administer (preferably) with milk hydroxyzine HCl 25 mg tablet 25 mg PO BID PRN (Reason: anxiety) topiramate 100 mg tablet 100 mg PO BID metoclopramide HCl 10 mg tablet 10 mg PO AC PRN (Reason: nausea and vomiting) levothyroxine 75 mcg tablet 75 mcg PO DAILY escitalopram oxalate 20 mg tablet 20 mg PO DAILY tramadol 50 mg tablet 50 mg PO Q6H PRN (Reason: pain) Qty: 28 0RF acetaminophen [Pain Relief (acetaminophen)] 325 mg tablet 650 mg PO Q4H PRN (Reason: pain) ergocalciferol (vitamin D2) 1,250 mcg (50,000 unit) capsule 1,250 mcg PO .Q7 Print Language: Vietnamese Instructions: Abdominal Pain (ED) Additional Instructions: follow up with [facility] today. Return if fever Referrals: Thomas Alas MD [Primary Care Provider, Family Practice] - 1 week
[2024-09-20 00:47] LABS: Hematocrit 37.4 % (36.0-48.0); Hemoglobin 12.1 g/dL (12.0-16.0); Immature Granulocytes Abs Auto 0.01 10^3/uL (0.00-0.03); Immature Granulocytes Pct Auto 0.2 % (0.0-0.5); Lymphocytes Absolute Auto 1.8 10^3/uL (1.2-3.8); Mean Corpuscular HGB Conc 32.4 g/dL (29.9-35.2); Mean Corpuscular Hemoglobin 29.6 pg (26.7-34.0); Mean Corpuscular Volume 91.4 fL (81.0-99.0); Platelet Count 385 10^3/uL (150-450); Red Blood Count 4.09 10^6/uL (4.20-5.40); White Blood Count 5.2 10^3/uL (4.0-11.0)
[2024-09-20] MEDS: 0.9 % SODIUM CHLORIDE 1,000 ML 999 ML IV (00:58)
[2024-09-20] MEDS: PROCHLORPERAZINE 10 MG/2 ML VIAL IV (00:58)
[2024-09-20] MEDS: DIPHENHYDRAMINE HCL 50 MG/ML VIAL 25 MG IVP (00:58)
[2024-09-20 01:01] LABS: Lactate/Lactic Acid 0.9 mmol/L (0.4-2.0)
[2024-09-20 01:04] LABS: Anion Gap 12.8; Blood Urea Nitrogen 7.0 mg/dL (7.0-18.0); Calcium 8.9 mg/dL (8.5-10.1); Carbon Dioxide 25.9 mmol/L (21.0-32.0); Chloride 110 mmol/L (98-107); Estimated GFR (African America >60 (>=60 mL/min/1.73m^2); Estimated GFR (Non-African Ame >60 (>=60 mL/min/1.73m^2); Glucose 83 mg/dL (74-106); Potassium 3.7 mmol/L (3.5-5.1); Sodium 145 mmol/L (136-145)
[2024-09-20 04:38] LABS: Glucose Urine UA NEGATIVE (NEGATIVE)
[2024-09-20 04:44] LABS: Cast Seen? NONE SEEN #/LPF (NONE SEEN); Crystals Seen? None Seen #/HPF (None Seen); Urine Culture Indicated NO
== END 2024-09-20 05:39 | disposition home or self-care (01) ==
PROVIDERS: Emergency Provider Internal Medicine; PCP Family Medicine
DX: R10.9 Unspecified abdominal pain (principal); R79.89 Other specified abnormal findings of blood chemistry; Z90.49 Acquired absence of other specified parts of digestive tract; Z98.84 Bariatric surgery status; Z90.710 Acquired absence of both cervix and uterus
CPT/HCPCS: 36415; 71045; 80048; 81001; 83605; 85025; 86140; 96374; 96375; 99285; J0780; J1200

== ENCOUNTER 2024-10-15 10:25 | Outpatient (RCR) | payer MEDICAID, SELFPAY ==
[2024-10-04 09:43] VITALS: BP 142/92; PULSE 79; TEMP 36.2; O2SAT 99
[2024-10-04] MEDS: DIPHENHYDRAMINE HCL 50 MG/ML VIAL IV (10:16)
[2024-10-04] MEDS: PROCHLORPERAZINE 10 MG/2 ML VIAL IV (10:16)
[2024-10-05 09:48] VITALS: BP 117/84; PULSE 72; TEMP 36.3; O2SAT 96
[2024-10-05] MEDS: DIPHENHYDRAMINE HCL 50 MG/ML VIAL IV (10:34)
[2024-10-05] MEDS: PROCHLORPERAZINE 10 MG/2 ML VIAL IV (10:34)
[2024-10-05] MEDS: 0.9 % SODIUM CHLORIDE 1,000 ML 1000 ML IV (10:35)
--- NOTE | 2024-10-05 11:16 | PC.NURSE ---
1116: Pt. requests to order lunch tray. Menu provided, lunch ordered.
[2024-10-05] MEDS: 0.9 % SODIUM CHLORIDE 1,000 ML 999 ML IV (11:30)
--- NOTE | 2024-10-05 12:05 | PC.NURSE ---
Up to bathroom to void. IVF cont. to infuse. Ate 100% of grilled ham and cheese and vegetable soup without c/o n/v.
[2024-10-06 12:45] VITALS: BP 129/92; PULSE 118; TEMP 36.5; O2SAT 96
[2024-10-06] MEDS: PROCHLORPERAZINE 10 MG/2 ML VIAL IV (12:51)
[2024-10-06] MEDS: DIPHENHYDRAMINE HCL 50 MG/ML VIAL IV (12:51)
[2024-10-09 11:50] VITALS: BP 116/77; PULSE 87; TEMP 36.4; O2SAT 96
[2024-10-09] MEDS: DIPHENHYDRAMINE HCL 50 MG/ML VIAL IVP (11:55)
[2024-10-09] MEDS: PROCHLORPERAZINE 10 MG/2 ML VIAL IV (11:55)
[2024-10-10 08:54] VITALS: BP 120/85; PULSE 97; TEMP 36.8; O2SAT 100
[2024-10-10] MEDS: DIPHENHYDRAMINE HCL 50 MG/ML VIAL IVP (09:01)
[2024-10-10] MEDS: PROCHLORPERAZINE 10 MG/2 ML VIAL IV (09:01)
[2024-10-11 08:45] VITALS: BP 132/89; PULSE 88; TEMP 36.3; O2SAT 98
[2024-10-11] MEDS: DIPHENHYDRAMINE HCL 50 MG/ML VIAL IVP (09:04)
[2024-10-11] MEDS: PROCHLORPERAZINE 10 MG/2 ML VIAL IV (09:05)
--- NOTE | 2024-10-11 09:05 | PC.NURSE ---
0904: Medicated with Benadryl and Compazine IVp as directed. Waiting on orders for IVF from Dr. Alas.
[2024-10-11 09:29] VITALS: BP 125/87; PULSE 71; TEMP 36.6; O2SAT 98
[2024-10-11] MEDS: 0.9 % SODIUM CHLORIDE 1,000 ML 1000 ML IV (09:29)
--- NOTE | 2024-10-11 09:34 | PC.NURSE ---
Normal saline infusion initiated at this time.
[2024-10-11] MEDS: 0.9 % SODIUM CHLORIDE 1,000 ML 999 ML IV (10:41)
[2024-10-12 10:50] VITALS: BP 125/87; PULSE 103; TEMP 36.5; O2SAT 98
[2024-10-12] MEDS: DIPHENHYDRAMINE HCL 50 MG/ML VIAL IV (11:00)
[2024-10-12] MEDS: PROCHLORPERAZINE 10 MG/2 ML VIAL IV (11:01)
[2024-10-13 08:55] VITALS: BP 127/84; PULSE 75; TEMP 36.4; O2SAT 98
[2024-10-13] MEDS: DIPHENHYDRAMINE HCL 50 MG/ML VIAL IV (09:05)
[2024-10-13] MEDS: PROCHLORPERAZINE 10 MG/2 ML VIAL IV (09:06)
[2024-10-15 10:30] VITALS: BP 109/66; PULSE 87; TEMP 36.4; O2SAT 97
[2024-10-15] MEDS: PROCHLORPERAZINE 10 MG/2 ML VIAL IV (10:37)
[2024-10-15] MEDS: DIPHENHYDRAMINE HCL 50 MG/ML VIAL IV (10:38)
== END 2024-10-15 23:59 | disposition home or self-care (01) ==
LOC: INF 10:25
PROVIDERS: PCP Family Medicine; Visit Provider Family Medicine
DX: R11.2 Nausea with vomiting, unspecified (principal); E86.0 Dehydration; R50.9 Fever, unspecified
CPT/HCPCS: 36415; 36591; 87040; 96374; 96375; J0780; J1200

== ENCOUNTER 2024-10-24 09:29 | Emergency (ER) | payer MEDICAID, SELFPAY ==
[2024-10-24] VITALS (13 sets, daily range): BP systolic 125–131; BP diastolic 77–82; PULSE 65–91; TEMP 36.7; O2SAT 100; BMI 29.1
--- NOTE | 2024-10-24 09:51 | ED.GENADUL1 ---
HPI HPI - General Adult General Chief complaint: Abdominal Pain Stated complaint: NAUSEA/VOMITING Time Seen by Provider: 10/24/24 09:37 Source: patient Mode of arrival: walk-in Limitations: no limitations History of Present Illness HPI narrative: 34-year-old female presented to the emergency department for chief complaint of nausea and vomiting and abdominal pain. It is not clear to me when this started but she has chronic issues with the symptoms. She was at the infusion center today and received Compazine and Benadryl and yesterday received IV fluids. She has a Hodges catheter and had her feeding tube removed a few months ago. She tells me she had sepsis 3 times in the month of August. Related Data Home Medications ?Medication ?Instructions ?Recorded ?Confirmed hydroxyzine HCl 25 mg tablet 25 mg PO BID PRN anxiety 09/17/22 08/28/24 topiramate 100 mg tablet 100 mg PO BID 09/17/22 08/28/24 metoclopramide HCl 10 mg tablet 10 mg PO AC PRN nausea and vomiting 06/14/23 08/28/24 escitalopram oxalate 20 mg tablet 20 mg PO DAILY 06/15/23 08/28/24 levothyroxine 75 mcg tablet 75 mcg PO DAILY 06/15/23 08/28/24 acetaminophen 325 mg tablet (Pain 650 mg PO Q4H PRN pain 06/24/23 08/28/24 Relief (acetaminophen)) blood sugar diagnostic ([facility] 03/29/24 08/16/24 Ultra Test strips) blood-glucose meter ([facility] 03/29/24 08/16/24 Ultra2 Meter) blood-glucose sensor (FreeStyle 03/29/24 08/16/24 Hunter 3 Plus Sensor device) fentanyl 25 mcg/hr transdermal 1 patch transdermal Q72H 03/29/24 08/28/24 patch hydrocodone 5 mg-acetaminophen 325 1 tab PO Q4H PRN pain 03/29/24 08/28/24 mg tablet lancets 30 gauge (OneTouch Delica 03/29/24 08/16/24 Plus Lancet) omeprazole 40 mg capsule,delayed 40 mg PO BID 03/29/24 08/28/24 release pen needle, diabetic 32 gauge x 03/29/24 08/16/24 (BD Stefania 2nd Gen Pen Needle) prucalopride 2 mg tablet 2 mg PO DAILY 03/29/24 08/28/24 trazodone 100 mg tablet 100 mg PO .qhs 03/29/24 08/28/24 ergocalciferol (vitamin D2) 1,250 1,250 mcg PO .Q7 06/21/24 08/28/24 mcg (50,000 unit) capsule hydrocortisone 10 mg tablet 10 mg PO DAILY 08/16/24 08/28/24 mirtazapine 45 mg tablet 45 mg PO BEDTIME 08/16/24 08/28/24 ondansetron 4 mg disintegrating 8 mg PO Q4H PRN nausea and vomiting 08/16/24 08/28/24 tablet Previous Rx's ?Medication ?Instructions ?Recorded tramadol 50 mg tablet 50 mg PO Q6H PRN pain #28 tabs 06/16/23 Lactobacillus 1 tab PO BID #40 wafers 09/02/24 acidophilus-Lactbacill.bifidus 1 billion cell oral wafer cefdinir 300 mg capsule 300 mg PO Q12H 14 days #28 caps 09/02/24 methocarbamol 500 mg tablet 500 mg PO BID PRN Muscle spasm #0 09/02/24 tabs Allergies Allergy/AdvReac Type Severity Reaction Status Date / Time adhesive Allergy Rash Verified 10/24/24 09:37 NSAIDS (Non-Steroidal Allergy intolerance Verified 10/24/24 09:37 Anti-Inflamma codeine AdvReac Vomiting Verified 10/24/24 09:37 Opioid HPI Opioid Management Most Recent Opioid Data: Last Pain Scale 8 Today, 09:37 Last ORT Total Score 0 08/28/24, 18:16 Last ORT Risk Category Low Risk 08/28/24, 18:16 Ur Phencyclidine Scrn, (NEGATIVE) Negative 08/28/24, 14:10 Review of Systems ROS Narrative A ten point review of systems is negative except as noted above. [facility] Medical History (Updated 10/24/24 @ 11:27 by Reji Damon MD) Hypoglycemia ?E16.2 - Hypoglycemia, unspecified (ICD-10) Gastroenteritis ?K52.9 - Noninfective gastroenteritis and colitis, unspecified (ICD-10) Feeding by G-tube ?Z93.1 - Gastrostomy status (ICD-10) Abdominal pain ?R10.9 - Unspecified abdominal pain (ICD-10) Small bowel intussusception ?K56.1 - Intussusception (ICD-10) Nausea and vomiting ?R11.2 - Nausea with vomiting, unspecified (ICD-10) Flank pain ?R10.9 - Unspecified abdominal pain (ICD-10) Abdominal pain ?R10.9 - Unspecified abdominal pain (ICD-10) Acute abdomen ?R10.0 - Acute abdomen (ICD-10) Intractable nausea and vomiting ?R11.2 - Nausea with vomiting, unspecified (ICD-10) Intractable abdominal pain ?R10.9 - Unspecified abdominal pain (ICD-10) Depression ?F32.A - Depression, unspecified (ICD-10) Asthma ?J45.909 - Unspecified asthma, uncomplicated (ICD-10) Dyspareunia Pelvic pain ?R10.2 - Pelvic and perineal pain (ICD-10) Ovarian cyst ?N83.209 - Unspecified ovarian cyst, unspecified side (ICD-10) PONV (postoperative nausea and vomiting) ?R11.2 - Nausea with vomiting, unspecified (ICD-10) ?Z98.890 - Other specified postprocedural states (ICD-10) PCOS (polycystic ovarian syndrome) ?E28.2 - Polycystic ovarian syndrome (ICD-10) Hypothyroidism (acquired) ?E03.9 - Hypothyroidism, unspecified (ICD-10) Anxiety ?F41.9 - Anxiety disorder, unspecified (ICD-10) GERD (gastroesophageal reflux disease) ?K21.9 - Gastro-esophageal reflux disease without esophagitis (ICD-10) Sleep apnea ?G47.30 - Sleep apnea, unspecified (ICD-10) Anemia ?D64.9 - Anemia, unspecified (ICD-10) Fibromyalgia ?M79.7 - Fibromyalgia (ICD-10) Syncope (07/07/13) ?R55 - Syncope and collapse (ICD-10) Shingles ?B02.9 - Zoster without complications (ICD-10) Headache ?R51.9 - Headache, unspecified (ICD-10) Migraine ?G43.909 - Migraine, unspecified, not intractable, without status migrainosus (ICD-10) Mechanical ileus (01/31/20) ?K56.609 - Unspecified intestinal obstruction, unspecified as to partial versus complete obstruction (ICD-10) COVID-19 (~02/2020) ?U07.1 - COVID-19 (ICD-10) Kidney stones ?N20.0 - Calculus of kidney (ICD-10) Surgical History S/P percutaneous endoscopic gastrostomy (PEG) tube placement ?Z93.1 - Gastrostomy status (ICD-10) 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 - Celiac artery compression syndrome (ICD-10) H/O shoulder surgery (2022) ?Z98.890 - Other specified postprocedural states (ICD-10) History of hip surgery ?Z98.890 - Other specified postprocedural states (ICD-10) S/P right knee arthroscopy ?Z98.890 - Other specified postprocedural states (ICD-10) S/P left knee arthroscopy ?Z98.890 - Other specified postprocedural states (ICD-10) Hx of tonsillectomy ?Z90.89 - Acquired absence of other organs (ICD-10) History of thoracic surgery (~2021) ?Z98.890 - Other specified postprocedural states (ICD-10) History of esophagogastroduodenoscopy (EGD) (10/04/13) ?Z98.890 - Other specified postprocedural states (ICD-10) History of cholecystectomy (10/06/13) ?Z90.49 - Acquired absence of other specified parts of digestive tract (ICD-10) Delivery by section (~2016) Delivery by section (01/17/18) H/O colonoscopy (~2018) ?Z98.890 - Other specified postprocedural states (ICD-10) S/P right knee arthroscopy (07/21/18) ?Z98.890 - Other specified postprocedural states (ICD-10) Delivery by section (06/19/19) History of appendectomy (09/25/19) ?Z90.49 - Acquired absence of other specified parts of digestive tract (ICD-10) H/O laparoscopy (11/10/19) ?Z98.890 - Other specified postprocedural states (ICD-10) History of liver biopsy (~04/2020) ?Z98.890 - Other specified postprocedural states (ICD-10) H/O laparoscopy (07/18/20) ?Z98.890 - Other specified postprocedural states (ICD-10) H/O arthroscopy of right knee (08/07/20) ?Z98.890 - Other specified postprocedural states (ICD-10) S/P laparoscopic sleeve gastrectomy (09/03/20) ?Z98.84 - Bariatric surgery status (ICD-10) H/O: hysterectomy (11/12/20) ?Z90.710 - Acquired absence of both cervix and uterus (ICD-10) History of hernia repair (03/20/21) ?Z98.890 - Other specified postprocedural states (ICD-10) ?Z87.19 - Personal history of other diseases of the digestive system (ICD-10) Family History Other Family history of cancer Family history of diabetes mellitus Family history of hypertension Family history of myocardial infarction PONV (postoperative nausea and vomiting) Social History (Updated 08/16/24 @ 04:44 by Shelley Wong) Within the past year, how often did you have a drink containing alcohol: never Score interpretation: A score less than 3 is consistent with normal alcohol consumption. Smoking status: Never smoker Non-prescribed substance use: denies use Previous occupational history: disabled Known occupational exposures/hazards details: disabled Highest level of school completed/degree received: Master's degree Are you now , , , , never or living with a partner: In a typical week, how many times do you talk on the telephone with family, friends, or neighbors: 3 or more times per week How often do you get together with friends or relatives: twice per week How often do you attend restorationism or pentecostalism services: 4 or more times per year Do you belong to any clubs or organizations such as restorationism groups unions, fraternal or athletic groups, or school groups: no Total score: 3 Score interpretation: A score of greater than or equal to 2 indicates the lowest level of social isolation. Little interest or pleasure in doing things: not at all Feeling down, depressed, or hopeless: not at all Feel stressed/tense/nervous/anxious/difficulty sleeping: to some extent Do you think of yourself as: straight/heterosexual Gender Identity: female Exam Narrative Exam Narrative: Nurses note and vital signs reviewed and patient is not hypoxic. General: The patient appears in no apparent distress. Patient is resting on cart. Skin: Warm, dry, no pallor noted. There is no rash noted. Head: Normocephalic, atraumatic Eye: Normal conjunctiva, no drainage Ears, Nose, Mouth, and Throat: oral mucosa is moist. Nares patent. Cardiovascular: Regular Rate and Rhythm Respiratory: Patient is in no distress, no accessory muscle use, lungs are clear to auscultation, no wheezing, rales or rhonchi Back: non-tender GI: Normal bowel sounds, no apparent tenderness on palpation. Her feeding tube site is healing well, no drainage or erythema. Musculoskeletal: The patient has no evidence of calf tenderness, no pitting edema, symmetrical pulses noted bilaterally Neurological: A&O, normal speech Psychiatric: Cooperative Constitutional Vital Signs, click to edit/add: Last Vital Signs Temp 98.0 F 10/24/24 09:37 Pulse 75 10/24/24 10:30 Resp 16 10/24/24 10:30 BP 131/82 10/24/24 09:37 Pulse Ox 100 10/24/24 10:30 O2 Del Method Room Air 10/24/24 09:37 Course Vital Signs Vital signs: Vital Signs Temperature 98.0 F 10/24/24 09:37 Pulse Rate 90 10/24/24 09:37 Respiratory Rate 18 10/24/24 09:37 Blood Pressure 131/82 10/24/24 09:37 Pulse Oximetry 100 10/24/24 09:37 Oxygen Delivery Method Room Air 10/24/24 09:37 Temperature 98.0 F 10/24/24 09:37 Pulse Rate 75 10/24/24 10:30 Respiratory Rate 16 10/24/24 10:30 Blood Pressure 131/82 10/24/24 09:37 Pulse Oximetry 100 10/24/24 10:30 Oxygen Delivery Method Room Air 10/24/24 09:37 Medical Decision Making MDM Narrative Medical decision making narrative: Her workup is negative. She was given IV fluids and Zofran and 1 mg of Dilaudid and she is being discharged home. She will follow-up with her specialist in [place]. Treatment diagnosis and follow-up were discussed with the patient. Differential Diagnosis Differential Diagnosis: Chronic abdominal pain, nausea and vomiting, dehydration Lab Data Lab results reviewed: Yes I reviewed the patient's lab results Labs: Lab Results 10/24/24 10/24/24 Range/Units 09:45 10:44 WBC 3.6 L (4.0-11.0) 10^3/uL RBC 3.75 L (4.20-5.40) 10^6/uL Hgb 11.4 L (12.0-16.0) g/dL Hct 33.4 L (36.0-48.0) % MCV 89.1 (81.0-99.0) fL MCH 30.4 (26.7-34.0) pg MCHC 34.1 (29.9-35.2) g/dL RDW 13.7 (11.0-15.0) % Plt Count 236 (150-450) 10^3/uL MPV 10.7 (9.5-13.5) fL Neut % (Auto) 54.6 (43.0-75.0) % Lymph % (Auto) 36.4 (20.5-60.0) % [place] % (Auto) 7.3 (1.7-12.0) % Eos % (Auto) 1.1 (0.9-7.0) % Baso % (Auto) 0.6 (0.2-2.0) % Neut # (Auto) 2.0 (1.4-6.5) 10^3/uL Lymph # (Auto) 1.3 (1.2-3.8) 10^3/uL [place] # (Auto) 0.3 (0.3-0.8) 10^3/uL Eos # (Auto) 0.0 (0.0-0.7) 10^3/uL Baso # (Auto) 0.0 (0.0-0.1) 10^3/uL Abs Immat Gran (auto) 0.00 (0.00-0.03) 10^3/uL Imm/Tot Granulo (auto) 0.0 (0.0-0.5) % Sodium 141 (136-145) mmol/L Potassium 3.7 (3.5-5.1) mmol/L Chloride 110 H (98-107) mmol/L Carbon Dioxide 19.3 L (21.0-32.0) mmol/L Anion Gap 15.4 BUN 4.0 L (7.0-18.0) mg/dL Creatinine 0.63 (0.55-1.02) mg/dL Est GFR ( Amer) >60 (>=60 mL/min/1.73m^2) Est GFR (Non-Af Amer) >60 (>=60 mL/min/1.73m^2) BUN/Creatinine Ratio 6.3 Glucose 86 (74-106) mg/dL Calcium 8.3 L (8.5-10.1) mg/dL C-Reactive Protein <0.50 (<=0.50) mg/dL Urine Color Lt. yellow (YELLOW) Urine Clarity Clear (CLEAR) Urine pH 6.0 (5.0-9.0) Ur Specific [place] <=1.005 A (1.005-1.025) Urine Protein Negative (NEG/TRACE) mg/dL Urine Glucose (UA) Negative (NEGATIVE) mg/dL Urine Ketones Negative (NEGATIVE) mg/dL Urine Occult Blood Negative (NEGATIVE) Urine Nitrite Negative (NEGATIVE) Urine Bilirubin Negative (NEGATIVE) Urine Urobilinogen 0.2 (0.2-1.0) EU/dL Ur Leukocyte Esterase Negative (NEGATIVE) Urine RBC 0-2 (0-2) #/HPF Urine WBC 0-2 A (NONE SEEN) #/HPF Ur Squamous Epith Cells Few A (NONE/RARE) #/LPF Urine Crystals None seen (None Seen) #/HPF Urine Bacteria Trace A (NONE SEEN) #/HPF Urine Casts None seen (NONE SEEN) #/LPF Urine Mucus None seen (NONE SEEN) Ur Culture Indicated? No ECG Data Attestation: I personally reviewed and interpreted this ECG as follows: (EKG on my interpretation shows sinus rhythm with a rate of 87 and no acute change) Discharge Plan Discharge Chief Complaint: Abdominal Pain Clinical Impression: Nausea and vomiting Patient Disposition: Home, Self-Care Time of Disposition Decision: 11:27 Condition: Good Mode of Transportation: Private Vehicle Prescriptions / Home Meds: No Action (DME) blood-glucose meter [OneTouch Ultra2 Meter] Misc MISCELLANEOUS (DME) OneTouch Ultra Test Strip MISCELLANEOUS fentanyl 25 mcg/hr patch 72 hour 1 patch transdermal Q72H (DME) FreeStyle Hunter 3 Plus Sensor Device MISCELLANEOUS hydrocodone-acetaminophen 5-325 mg tablet 1 tab PO Q4H PRN (Reason: pain) (DME) lancets [OneTouch Delica Plus Lancet] 30 gauge misc MISCELLANEOUS omeprazole 40 mg capsule,delayed release(DR/EC) 40 mg PO BID (DME) pen needle, diabetic [BD Stefania 2nd Gen Pen Needle] 32 gauge x 5/32 needle MISCELLANEOUS prucalopride 2 mg tablet 2 mg PO DAILY trazodone 100 mg tablet 100 mg PO .qhs mirtazapine 45 mg tablet 45 mg PO BEDTIME hydrocortisone 10 mg tablet 10 mg PO DAILY ondansetron 4 mg tablet,disintegrating 8 mg PO Q4H PRN (Reason: nausea and vomiting) methocarbamol 500 mg tablet 500 mg PO BID PRN (Reason: Muscle spasm) Qty: 0 0RF cefdinir 300 mg capsule 300 mg PO Q12H 14 Days Qty: 28 0RF Lactobacillus acidoph-L. bifid 1 billion cell wafer 1 tab PO BID Qty: 40 0RF Rx Instructions: administer (preferably) with milk hydroxyzine HCl 25 mg tablet 25 mg PO BID PRN (Reason: anxiety) topiramate 100 mg tablet 100 mg PO BID metoclopramide HCl 10 mg tablet 10 mg PO AC PRN (Reason: nausea and vomiting) levothyroxine 75 mcg tablet 75 mcg PO DAILY escitalopram oxalate 20 mg tablet 20 mg PO DAILY tramadol 50 mg tablet 50 mg PO Q6H PRN (Reason: pain) Qty: 28 0RF acetaminophen [Pain Relief (acetaminophen)] 325 mg tablet 650 mg PO Q4H PRN (Reason: pain) ergocalciferol (vitamin D2) 1,250 mcg (50,000 unit) capsule 1,250 mcg PO .Q7 Print Language: Tongan Instructions: Acute Nausea and Vomiting (ED) Referrals: Thomas Alas MD [Primary Care Provider, Family Practice] - 1 week
[2024-10-24 09:56] LABS: Hematocrit 33.4 % (36.0-48.0); Hemoglobin 11.4 g/dL (12.0-16.0); Immature Granulocytes Abs Auto 0.00 10^3/uL (0.00-0.03); Immature Granulocytes Pct Auto 0.0 % (0.0-0.5); Lymphocytes Absolute Auto 1.3 10^3/uL (1.2-3.8); Mean Corpuscular HGB Conc 34.1 g/dL (29.9-35.2); Mean Corpuscular Hemoglobin 30.4 pg (26.7-34.0); Mean Corpuscular Volume 89.1 fL (81.0-99.0); Platelet Count 236 10^3/uL (150-450); Red Blood Count 3.75 10^6/uL (4.20-5.40); White Blood Count 3.6 10^3/uL (4.0-11.0)
[2024-10-24] MEDS: 0.9 % SODIUM CHLORIDE 1,000 ML 1000 ML IV (09:59)
[2024-10-24 10:33] LABS: Anion Gap 15.4; Blood Urea Nitrogen 4.0 mg/dL (7.0-18.0); Calcium 8.3 mg/dL (8.5-10.1); Carbon Dioxide 19.3 mmol/L (21.0-32.0); Chloride 110 mmol/L (98-107); Estimated GFR (African America >60 (>=60 mL/min/1.73m^2); Estimated GFR (Non-African Ame >60 (>=60 mL/min/1.73m^2); Glucose 86 mg/dL (74-106); Potassium 3.7 mmol/L (3.5-5.1); Sodium 141 mmol/L (136-145)
[2024-10-24] MEDS: HYDROMORPHONE HCL 1 MG/ML CARTRIDGE IV (10:41)
[2024-10-24 10:56] LABS: Glucose Urine UA NEGATIVE (NEGATIVE)
[2024-10-24 11:06] LABS: Crystals Seen? None Seen #/HPF (None Seen)
[2024-10-24 11:07] LABS: Cast Seen? NONE SEEN #/LPF (NONE SEEN); Urine Culture Indicated NO
--- NOTE | 2024-10-24 11:38 | ECG_ITS ---
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
== END 2024-10-24 11:38 | disposition home or self-care (01) ==
PROVIDERS: Emergency Provider Emergency Medicine; PCP Family Medicine
DX: R11.2 Nausea with vomiting, unspecified (principal); R10.9 Unspecified abdominal pain; E86.0 Dehydration; A41.9 Sepsis, unspecified organism
CPT/HCPCS: 36415; 36591; 80048; 81001; 85025; 86140; 93005; 96361; 96374; 96375; 99284; J0780; J1171; J1200; J2405

== ENCOUNTER 2024-10-27 09:04 | Emergency (ER) | payer MEDICAID, SELFPAY ==
--- OUTSIDE RECORDS SUMMARY | 2024-10-27 09:09 | XMS_ITS | Encounter Summary ---
Author Organization [facility] [employer] [facility] tem Address [id number] [address] [place] [address] Care Team Providers Care Hot Metal Car Operator Name Role Phone No Pcp, No Pcp Primary Care Provider Unavailabl e Encounter Details Date Type Department Care Team (Late st Contact Info) Description 09/28/2017 Orders Only Maternal- Medicine at [facility] [address] [place] [id number] Holger Alcala MD [address] [facility] [address] [place] [address] Social History Tobacco Use Types Packs/Day Years [...] filedocumented in this encounter Care Teams Hot Metal Car Operator Relationship Specialty Start Date End Date No Pcp, [place] [address] PCP - General Family Medicine 09/22/17 documented as of this encounter
--- OUTSIDE RECORDS SUMMARY | 2024-10-27 09:09 | XMS_ITS | Clinical Summary ---
Author Organization [employer] tem Address [id number] [address] [place] [address] Care Team Providers Care Skimmer Scoop Operator Name Role Phone No Pcp, No [...] Noted Date Diagnosed Date Hypothyroidism affecting in [facility] 09/22/2017 Family History Medical History Relation [...] on file Insurance [employer] Care Teams Skimmer Scoop Operator Relationship Specialty Start Date End Date No Pcp, [place] [address] PCP - General Family Medicine 09/22/17
--- OUTSIDE RECORDS SUMMARY | 2024-10-27 09:09 | XMS_ITS | Encounter Summary ---
Author Organization [facility] Address [address] [place] [address] Care Team Providers Care Stock Digger Name Role Phone Anna Mendez DIESEL TRACTOR OPERATOR Unavailable Unallocated, Noms Provider Primary Care Provi pako Tj Najera Unavailable [phone] Thomas Alas MD Primary Care Provider [phone] Encounter Details Date Type Department Care Team (Late st Contact Info) Description 10/05/2022 Abstract [facility] [address] [place] [address] Tj Najera, PA [address] [facility] [place] [address] Social History Tobacco Use Types [...] on filedocumented in this encounter Care Teams Stock Digger Relationship Specialty Start Date End Date Unallocated, Noms Provider, [address] [place] [address] PCP - General 07/23/22 12/13/23 Tj Najera PA [address] [place] [address] PCP - Medical [facility] 07/16/22 04/24/23 Thomas Alas MD [address] [place] [address] PCP - General Family Medicine 12/14/23 Anna Mendez NP [address] [place] [address] Referring Physician Family Medicine 07/23/22 documented as of this encounter
--- OUTSIDE RECORDS SUMMARY | 2024-10-27 09:09 | XMS_ITS | Encounter Summary ---
Author Organization [facility] Address [address] [place] [address] Care Team Providers Care Comfort Station Attendant Name Role Phone Anna Mendez AMERICAN BOARD CERTIFIED ORTHOTIST Unavailable Unallocated, Noms Provider Primary Care Provi pako Tj Najera PA Unavailable [phone] Thomas Alas MD Primary Care Provider [phone] Encounter Details Date Type Department Care Team (Late st Contact Info) Description 09/07/2022 Abstract [facility] [address] [place] [address] Tj Najera, PA [address] [facility] [place] [address] Social History Tobacco Use Types [...] on filedocumented in this encounter Care Teams Comfort Station Attendant Relationship Specialty Start Date End Date Unallocated, Noms Provider, [address] [address] PCP - General 07/23/22 12/13/23 Tj Najera PA [address] [place] [address] PCP - Medical [facility] 07/16/22 04/24/23 Thomas Alas MD [address] [place] [address] PCP - General Family Medicine 12/14/23 Anna Mendez NP [address] [place] [address] Referring Physician Family Medicine 07/23/22 documented as of this encounter
--- OUTSIDE RECORDS SUMMARY | 2024-10-27 09:09 | XMS_ITS | Encounter Summary ---
Author Organization [facility] Address [address] [place] [address] Care Team Providers Care Steward Racetrack Name Role Phone VanessaAnna hendricks STAGE ELECTRICIAN HELPER Unavailable Unallocated, Noms Provider Primary Care Provi pako Tj Najera Unavailable [phone] Thomas Alas MD Primary Care Provider [phone] Encounter Details Date Type Department Care Team (Late st Contact Info) Description 11/20/2022 Abstract [facility] [address] [place] [address] Tj Najera, PA [address] [facility] [place] [address] Social History Tobacco Use Types [...] on filedocumented in this encounter Care Teams Steward Racetrack Relationship Specialty Start Date End Date Unallocated, Noms Provider, [address] [place] [address] PCP - General 07/23/22 12/13/23 Tj Najera PA [address] [place] [address] PCP - Medical [facility] 07/16/22 04/24/23 Thomas Alas MD [address] [place] [address] PCP - General Family Medicine 12/14/23 Anna Mendez NP [address] [place] [address] Referring Physician Family Medicine 07/23/22 documented as of this encounter
--- OUTSIDE RECORDS SUMMARY | 2024-10-27 09:09 | XMS_ITS | Encounter Summary ---
Author Organization [facility] Address [address] [place] [address] Care Team Providers Care Change Of Address Clerk Name Role Phone VanessaAnna hendricks POISER Unavailable Unallocated, Noms Provider Primary Care Provi pako Tj Najera Unavailable [phone] Thomas Alas MD Primary Care Provider [phone] Encounter Details Date Type Department Care Team (Late st Contact Info) Description 10/02/2022 Abstract [facility] [address] [place] [address] Raegan Frye PA [address] [place], [place] [id number] Social History Tobacco Use Types Packs/Day Years [...] on filedocumented in this encounter Care Teams Change Of Address Clerk Relationship Specialty Start Date End Date Unallocated, [place] [address] PCP - General 07/23/22 12/13/23 Tj Najera PA [address] [place] [address] PCP - Medical [facility] 07/16/22 04/24/23 Thomas Alas MD [address] [place] [address] PCP - General Family Medicine 12/14/23 Anna Mendez NP [address] [place] [address] Referring Physician Family Medicine 07/23/22 documented as of this encounter
--- OUTSIDE RECORDS SUMMARY | 2024-10-27 09:09 | XMS_ITS | Encounter Summary ---
Author Organization [facility] tem Address [id number] [address] [place] [address] Care Team Providers Care Wellhead Pumper Name Role Phone No Pcp, No Pcp Primary Care Provider Unavailabl e Reason for Visit * Reason Comments Med Refill Encounter Details Date Type Department Care Team (Late st Contact Info) Description 09/17/2019 Refill Maternal- Medicine at [facility] [address] [place] [address] Marc Martines MD [address] [facility], [address] [place] [address] Gestational diabetes mellitus (GDM) controlled on oral [...] documented as of this encounter Care Teams Wellhead Pumper Relationship Specialty Start Date End Date No Pcp, [place] [address] PCP - General Family Medicine 09/22/17 documented as of this encounter
--- OUTSIDE RECORDS SUMMARY | 2024-10-27 09:09 | XMS_ITS | Encounter Summary ---
Author Organization [facility] Address [address] [place] [address] Care Team Providers Care Lot Attendant Name Role Phone Anna Mendez 3D ARTIST Unavailable Unallocated, Noms Provider Primary Care Provi pako Tj Najera Unavailable [phone] Thomas Alas MD Primary Care Provider [phone] Encounter Details Date Type Department Care Team (Late st Contact Info) Description 10/30/2022 Abstract [facility] [address] [place] [address] Tj Najera, PA [address] [place] [address] Social History Tobacco Use Types [...] on filedocumented in this encounter Care Teams Lot Attendant Relationship Specialty Start Date End Date Unallocated, Noms Provider, [address] [place] [address] PCP - General 07/23/22 12/13/23 Tj Najera PA [address] [place] [address] PCP - Medical [facility] 07/16/22 04/24/23 Thomas Alas MD [address] [place] [address] PCP - General Family Medicine 12/14/23 Anna Mendez NP [address] [place] [address] Referring Physician Family Medicine 07/23/22 documented as of this encounter
--- OUTSIDE RECORDS SUMMARY | 2024-10-27 09:10 | XMS_ITS | Clinical Summary ---
Author Organization [facility] Address [address] [place] [address] Care Team Providers Care Promotions Producer Name Role Phone Thomas Alas MD Primary Care Provider [phone] Allergies Active Allergy Reactions Criticality Noted Date [...] morning. Active ergocalciferol (Vitamin D-2) 1.25 MG (45835 Units) capsule Take 50,000 Units by mouth 1 (one) time per week. Active Active Problems Problem Noted Date Diagnosed Date Sepsis due to Klebsiella 08/18/2024 Assessment & Plan (08/19/2024 1:03 PM EDT): - source is likely the cellulitis around the J-tube status post J-tube removal. - CT scan from [facility] showing no abscess. - Infectious disease recommendations appreciated, continue with ceftriaxone. - Repeat blood cultures on 08/16: NGTD - central line in place, does not look like infected, continue monitoring, central line care. Assessment & Plan (08/18/2024 12:20 PM EDT): - source is likely the cellulitis around the J-tube status post J-tube removal. - CT scan from [facility] showing no abscess. - Infectious [...] post J-tube removal. - CT scan from [facility] showing no abscess. - Infectious disease recommendations appreciated, continue with ceftriaxone. - Repeat blood cultures on 08/16: NGTD - central line in place, does not look like infected, continue monitoring, central line care. Assessment & Plan (08/18/2024 12:20 PM EDT): - source is likely the cellulitis around the J-tube status post J-tube removal. - CT scan from [facility] showing no abscess. - Infectious [...] and scheduled tramadol. Continue with as needed [place]. Assessment & Plan (08/18/2024 12:20 PM EDT): - continue with home meds including fentanyl patch and scheduled tramadol. Continue with as needed [place]. MALT (mucosa associated lymphoid tissue) 025 Assessment [...] daily DVT prophylaxis is VTE protocols per [facility] GI prophy Protonix Monitor labs) Obtain [...] Department Care Team Description 08/20/2024 Orders Only [facility] Vascular and Endovascular Surgery [address] [place] [address] Mikayla Jennings PA-C Wound cellulitis (Primary Dx) 08/20/2024 Orders Only [facility] Vascular and Endovascular Surgery [address] [place] [address] Mikayla Jennings PA-C Wound cellulitis (Primary Dx) 08/16/2024 8:48 PM EDT - 08/20/2024 3:55 PM EDT Hospital Encounter [facility] 5AB[facility] Surgery Stepdown [address] [place] [address] Sandeep Casey MD Mansur, Sarmed, MD Okoro, Bonaventure, MD Bacteremia (Primary Dx) Discharge Disposition: Home or Self Care () 08/16/2024 Travel from Last 3 Months Social History Tobacco Use Types Packs/Day Years Used Date Smoking Tobacco: Never Smokeless Tobacco: Never Tobacco Cessation:Counseling Given: Not Answered [facility] Utilities Answer Date Recorded In the past 12 months has e [employer], gas, oil, or water [employer] threatened to shut off services in your [...] in the past 12 m [facility], were you homeless or living in a custodial (including now)? No 08/16/2024 Hunger Vital Sign [...] Smear 05/22/2023 05/21/2020 COVID-19 Vaccine ( season) 2024 02/18/2021, 06/23/2020 Influenza Vaccine (#1) 2024 3, [...] of14 resultswithin the time period is included. Glucose POC 122(H) 70 - 105 mg/dL 08/20/2024 11:30 AM EDT [facility] NydiaCORKYMECHELLE) Comment:[email or web address] Blood Capillary blood specimen / Unknown 08/20/2024 11:10 AM EDT 08/20/2024 11:30 AM EDT Narrative [facility] NydiaCORKYMECHELLE) - 08/20/2024 11:30 AM EDT Waived Testing in the ED is performed under the ED CLIA certificate #[id number]. us Mauricio Garcia MD LAB BLOOD ORDERABLES Final Resu lt [facility] ([facility]) [address] [place] [address] * (ABNORMAL) CBC (08/20/2024 5:17 AM EDT) Only the most recent of4 resultswithin the time period is included. Auto WBC 5.02 4.00 - 10.60 10*3/uL 08/20/2024 6:20 AM EDT [facility] ([facility]) RBC 3.02(L) 3.80 - 5.00 10*6/uL 08/20/2024 6:20 AM EDT [facility] ([facility]) Hemoglobin 9.1(L) 12.0 - 15.0 g/dL 08/20/2024 6:20 AM EDT [facility] ([facility]) Hematocrit 29.1(L) 36.0 - 45.0 % 08/20/2024 6:20 AM EDT [facility] ([facility]) MCV 96.4 82.0 - 98.0 fL 08/20/2024 6:20 AM EDT [facility] ([facility]) MCH 30.1 27.0 - 33.0 pg 08/20/2024 6:20 AM EDT [facility] ([facility]) MCHC 31.3(L) 32.0 - 35.0 g/dL 08/20/2024 6:20 AM EDT [facility] ([facility]) RDW 13.7 11.5 - 15.0 % 08/20/2024 6:20 AM EDT [facility] ([facility]) Platelets 336 150 - 400 10*3/uL 08/20/2024 6:20 AM EDT [facility] ([facility]) Blood Blood sample taken from central line / Unknown Existing Catheter / Unknown 08/20/2024 5:17 AM EDT 08/20/2024 5:58 AM EDT us Mauricio Garcia MD LAB BLOOD ORDERABLES Final Resu lt [facility] ([facility]) [address] [place] [address] * (ABNORMAL) Basic metabolic panel (08/20/2024 5:17 AM EDT) Only the most recent of5 resultswithin the time period is included. Sodium 142 136 - 145 mmol/L 08/20/2024 6:27 AM EDT [facility] ([facility]) Potassium 3.7 3.5 - 5.1 mmol/L 08/20/2024 6:27 AM EDT [facility] ([facility]) Chloride 109(H) 98 - 107 mmol/L 08/20/2024 6:27 AM EDT [facility] ([facility]) CO2 26 21 - 31 mmol/L 08/20/2024 6:27 AM EDT [facility] ([facility]) BUN 4(L) 7 - 25 mg/dL 08/20/2024 6:27 AM EDT [facility] ([facility]) Creatinine 0.54(L) 0.60 - 1.20 mg/dL 08/20/2024 6:27 AM EDT [facility] ([facility]) Glucose 81 70 - 100 mg/dL 08/20/2024 6:27 AM EDT [facility] ([facility]) Calcium 8.4(L) 8.6 - 10.3 mg/dL 08/20/2024 6:27 AM EDT [facility] ([facility]) Anion Gap 11 7 - 20 mmol/L 08/20/2024 6:27 AM EDT [facility] ([facility]) eGFR 123.1 >60.0 mL/min/1. 73m*2 08/20/2024 6:27 AM EDT [facility] ([facility]) Comment:The [facility] s estimated glomerular filtration rate (eGFR) [...] BUN/Creatinine Ratio 7.4 07/2024 6:27 AM EDT [facility] ([facility]) Blood Blood sample taken from central line / Unknown Existing Catheter / Unknown 08/20/2024 5:17 AM EDT 08/20/2024 5:57 AM EDT us Mauricio Garcia MD LAB BLOOD ORDERABLES Final Resu lt [facility] JAZMINE) [address] [place] [address] * CT abdomen pelvis w IV contrast (08/19/2024 4:57 PM EDT) Anatomical Region Laterality Modality Body, Pelvis, Abdomen Computed T omography 08/20/2024 8:19 AM EDT Addenda Addendum by Anabelle Mason MD on 09/28/2024 10:43 PM EDT Addendum: Recommendations per Fleischner criteria as described below: Pulmonary nodule follow-up recommendation: Solid nodule > 8 mm: - Recommend follow-up CT at 3 months, PET/CT or tissue sampling (biopsy), if indicated within the patient s clinical context. * Recommendations do not apply to patients younger than 35 years, immunocompromised patients, or patients with known or suspected malignancy. Based on Fleischner Society Guidelines, Radiology 2017. Electronically signed: Anabelle Mason. Impressions 08/20/2024 8:38 AM EDT 1. No [...] Electronically signed: Anabelle Mason. Mauricio Garcia MD [facility] PROCEDURES Edited Result - Final * XR chest 1 view (08/18/2024 8:04 [...] Electronically signed: Brad Willingham. Mauricio Garcia MD [facility] [place]R PROCEDURES Final Result * Urinalysis (08/17/2024 6:26 AM EDT) Color, Urine Yellow Colorless, Yellow, Light-Yellow 08/17/2024 6:45 AM EDT [facility] ([facility]) Clarity, Urine Clear Clear 08/17/2024 6:45 AM EDT [facility] ([facility]) pH, Urine 6.0 5.0 - 8.0 pH 08/17/2024 6:45 AM EDT [facility] ([facility]) Leukocytes, Urine Negative Negative 08/17/2024 6:45 AM EDT [facility] ([facility]) Nitrite, Urine Negative Negative 08/17/2024 6:45 AM EDT [facility] ([facility]) Protein, Urine Negative Negative mg/dL 08/17/2024 6:45 AM EDT [facility] ([facility]) Glucose, Urine Normal Normal mg/dL 08/18/19 6:45 AM EDT [facility] ([facility]) Bilirubin, Urine Negative Negative 08/17/2024 6:45 AM EDT [facility] ([facility]) Specific [place], Urine 1.019 1.010 - 1.030 08/17/2024 6:45 AM EDT [facility] ([facility]) Ketones, Urine Negative Negative mg/dL 08/17/2024 6:45 AM EDT [facility] ([facility]) Blood, Urine Negative Negative 08/17/2024 6:45 AM EDT [facility] ([facility]) Urobilinogen, Urine Normal Normal mg/dL 08/17/2024 6:45 AM EDT [facility] ([facility]) Urine Urine specimen obtained by clean catch procedure / Unknown Non-blood Collection / Unknown 08/17/2024 6:26 AM EDT 08/17/2024 6:32 AM EDT Narrative [facility] ([facility]) - 08/17/2024 6:45 AM EDT Microscopics not performed on urines with negative chemical reactions unless requested on original order. us Jace Corley PA-C LAB URINE ORDERABLES Final Res ult [facility] ([facility]) [address] [place] [address] * (ABNORMAL) CBC auto differential (08/16/2024 9:37 PM EDT) Auto WBC 4.37 4.00 - 10.60 10*3/uL 08/16/2024 10:08 PM EDT [facility] ([facility]) RBC 2.95(L) 3.80 - 5.00 10*6/uL 08/16/2024 10:08 PM EDT [facility] ([facility]) Hemoglobin 9.0(L) 12.0 - 15.0 g/dL 08/16/2024 10:08 PM [facility] ([facility]) Hematocrit 27.8(L) 36.0 - 45.0 % 08/16/2024 10:08 PM [facility] ([facility]) MCV 94.2 82.0 - 98.0 fL 08/16/2024 10:08 PM [facility] ([facility]) MCH 30.5 27.0 - 33.0 pg 08/16/2024 10:08 PM [facility] ([facility]) MCHC 32.4 32.0 - 35.0 g/dL 08/16/2024 10:08 PM [facility] ([facility]) RDW 14.2 11.5 - 15.0 % 08/16/2024 10:08 PM [facility] ([facility]) Neutrophils % 61.1 40.0 - 72.0 % 08/16/2024 10:08 PM [facility] ([facility]) Lymphocytes % 28.8 20.0 - 45.0 % 08/16/2024 10:08 PM [facility] ([facility]) Monocytes % 8.0 5.0 - 12.0 % 08/16/2024 10:08 PM [facility] ([facility]) Eosinophils % 1.4 0.0 - 6.0 % 08/16/2024 10:08 PM [facility] ([facility]) Basophils % 0.2 0.0 - 1.0 % 08/16/2024 10:08 PM [facility] ([facility]) Neutrophils Absolute 2.67 1.60 - 7.60 10*3/uL 08/16/2024 10:08 PM [facility] ([facility]) Lymphocytes Absolute 1.26 1.20 - 4.00 10*3/uL 08/16/2024 10:08 PM [facility] ([facility]) Monocytes Absolute 0.35 0.10 - 1.00 10*3/uL 08/16/2024 10:08 PM [facility] ([facility]) Eosinophils Absolute 0.06 0.00 - 0.50 10*3/uL 08/16/2024 10:08 PM EDT [facility] ([facility]) Basophils Absolute 0.01 0.00 - 0.20 10*3/uL 08/16/2024 10:08 PM EDT [facility] ([facility]) Platelets 227 150 - 400 10*3/uL 08/16/2024 10:08 PM EDT [facility] ([facility]) nRBC % 0.0 0 % 08/16/2024 10:08 PM EDT [facility] ([facility]) Immature Granulocytes % 0.5 0.0 - 1.0 % 08/16/2024 10:08 PM EDT [facility] ([facility]) Immature Granulocytes Absolute 0.02 0.00 - 0.20 10*3/uL 08/16/2024 10:08 PM EDT [facility] ([facility]) Blood Venous blood specimen / Unknown Existing Catheter / Unknown 08/16/2024 9:37 PM EDT 08/16/2024 10:00 PM EDT Jace INAMN-C LAB BLOOD ORDERABLES Final Res ult [facility]) [address] [place], [place] [id number] * Blood culture, peripheral #2 (08/16/2024 9:37 PM EDT) Only the most recent of2 resultswithin the time period is included. Blood Culture No growth at 5 days SANDHYA 08/21/2024 10:01 PM EDT [facility] ([facility]) Blood Venous blood specimen / Unknown Venipuncture / Unknown 08/16/2024 9:37 PM EDT 08/16/2024 9:59 PM EDT Jace INMAN-C LAB MICROBIOLOGY - GENERAL ORD ERABLES Final Result Performing Organization Address City/[facility]/ZIP Co de Phone Number [facility]) [address] [place], [place] [id number] * (ABNORMAL) Magnesium (08/16/2024 9:37 PM EDT) Magnesium 1.8(L) 1.9 - 2.7 mg/dL 08/16/2024 10:24 PM EDT [facility] ([facility]) Blood Venous blood specimen / Unknown Existing Catheter / Unknown 08/16/2024 9:37 PM EDT 08/16/2024 10:00 PM EDT Jace INMAN-C LAB BLOOD ORDERABLES Final Res ult [facility] ([facility]) [address] [place] [address] * (ABNORMAL) Lactic acid, plasma (08/16/2024 9:37 PM EDT) Lactate 0.4(L) 0.5 - 2.2 mmol/L 08/16/2024 10:28 PM EDT [facility] ([facility]) Blood Venous blood specimen / Unknown Existing Catheter / Unknown 08/16/2024 9:37 PM EDT 08/16/2024 9:59 PM EDT Jace INMAN-C LAB BLOOD ORDERABLES Final Res ult [facility]) [address] [place] [address] * (ABNORMAL) Hepatic function panel (08/16/2024 9:37 PM EDT) Total Bilirubin 0.4 0.3 - 1.0 mg/dL 08/16/2024 10:24 PM EDT [facility]) Bilirubin, Direct 0.1 0 - 0.2 mg/dL 08/16/2024 10:24 PM EDT [facility] ([facility]) Alkaline Phosphatase 73 34 - 104 U/L 08/16/2024 10:24 PM EDT [facility] ([facility]) AST 21 13 - 39 U/L 08/16/2024 10:24 PM EDT [facility] ([facility]) ALT (SGPT) 10 7 - 52 U/L 08/16/2024 10:24 PM EDT [facility]) Total Protein 5.4(L) 6.0 - 8.3 g/dL 08/16/2024 10:24 PM EDT [facility] ([facility]) Albumin 2.9(L) 3.5 - 5.7 g/dL 08/16/2024 10:24 PM EDT [facility]) Blood Venous blood specimen / Unknown Existing Catheter / Unknown 08/16/2024 9:37 PM EDT 08/16/2024 10:00 PM EDT us Jace Corley PA-C LAB BLOOD ORDERABLES Final Res ult [facility] ([facility]) [address] [place] [address] from Last 3 Months Insurance [facility] [employer] Advance Directives * Full Code (Latest Code Status on File) Date Activated Date Inactivated Comments 08/16/2024 9:21 PM 08/20/2024 5:55 PM Care Teams Promotions Producer Relationship Specialty Start Date End Date Thomas Alas MD [address] [address] PCP - General Family Medicine 08/17/24
--- OUTSIDE RECORDS SUMMARY | 2024-10-27 09:10 | XMS_ITS | Clinical Summary ---
Author Organization [facility] Address [address] [place] [address] Care Team Providers Care Sawmilling Operator Name Role Phone Anna Mendez CODE CLERK Unavailable Thomas Alas MD Primary Care Provider [phone] Allergies Active Allergy Reactions Criticality Noted Date [...] 06/09/19 23 Active Lancets (OneTouch Delica Plus [id number]) misc USE TO TEST BLOOD SUGAR TWICE [...] Hypertensive disorder 09/13/2017 39 weeks gestation of ([facility] 2016 Polycystic ovaries 10/02/2013 Asthma [...] Health Maintenance Insurance [employer] Care Teams Sawmilling Operator Relationship Specialty Start Date End Date Thomas Alas MD [address] [place] [address] PCP - General Family Medicine 12/14/23 Anna Mendez NP [address] [place] [address] Referring Physician Family Medicine 07/23/22
--- OUTSIDE RECORDS SUMMARY | 2024-10-27 09:10 | XMS_ITS | Clinical Summary ---
Author Organization [facility] Address [address] [place] [address] Phone Care Team Providers Care Net Web Developer Name Role Phone Generic Provider, No Assigned [...] polyethylene glycol (Glycolax, Miralax) 17 gram/dose powder Mix 17 g of powder and drink 2 times a day. 3 Active topiramate [...] for nausea. 30 tablet 1 4 Active fentaNYL (Duragesic) 25 mcg/hr patch Place 1 patch on the skin every 3rd day. 37 mcg Active Active Problems Problem Noted Date Diagnosed Date Epigastric pain 06/30/2023 Acute renal failure superimposed on chronic kidn ey disease 06/29/2023 Hypokalemia 06/29/2023 Heart failure 06/29/2023 Abdominal pain 03/16/2023 Nausea and vomiting 03/05/2023 RICHAR (obstructive sleep apnea) 03/05/2023 Asthma 03/05/2023 Anxiety 03/05/2023 Osteoarthritis 03/05/2023 Depression 03/05/2023 Median arcuate ligament syndrome 02/18/2023 Encounters Date Type Department Care Team Description 10/10/2024 11:00 AM EDT - 10/10/2024 11:59 PM EDT Hospital Encounter [facility] [address] [place] [address] Discharge Disposition: Home 10/09/2024 10:15 AM EDT Telemedicine [facility] [address] [place] [address] Jerad Magaña MD Median arcuate ligament syndrome (Primary Dx) Discharge Disposition: Home 10/06/2024 9:00 AM EDT Ancillary Procedure [facility] [address] [place] [address] Median arcuate ligament syndrome 09/18/2024 Orders Only [facility] [address] [place] [address] Crystal Monique RN Median arcuate ligament syndrome (Primary Dx) from Last 3 Months Family History Medical History Relation Name Comments Asthma Brother Adán Artino COPD Maternal Grandfather Cedrick Kraus Cancer Maternal Grandfather Cedrick Efra Heart disease Maternal Grandfather Cedrick Kraus Kidney disease Maternal Grandfather Cedrick Efra Hypertension Maternal Grandmother Grandpa Diabetes Mother Jessica Artino Hypertension Mother Jessica Artino Anesthesia problems Paternal Grandfather Elan Kyle o Anesthesia related problems Paternal Grandfather Harmeet do Artino Arthritis Paternal Grandfather Elan Artino Hypertension Paternal Grandfather Elan Artino COPD Paternal Grandmother Grandmother Diabetes Paternal Grandmother Grandmother Relation Name Status Comments Brother Adán Artino Maternal Grandfather Cedrick Efra Maternal Grandmother Grandpa Mother Jessica Artino Paternal [...] from your doctor or pharmacy? Never 06/30/2023 [facility] Utilities Answer [...] 06/30/2023 How often do you attend chur ch or shinto services? More than 4 times per year 06/30/2023 Do you belong to any clubs o r organizations such as zoroastrianism groups, unions, fraternal or athletic groups, or school groups? No 06/30/2023 How often do you attend meet ings of the clubs or organizations you belong to? Never 06/30/2023 Are you , , di vorced, , never , or living with a partner? 06/30/2023 Overall Financial Resource Strain (CARDIA) Answe r Date Recorded How hard is it for you to pa y for the very basics like food, housing, medical care, and heating? Not hard at all 06/30/2023 PHQ-2 Answer Date Recorded Patient Health Questionnaire-2 Score 0 10/09/2024 [facility] [place] [facility] - Occupational Stress [...] in a nursing home (including now)? No 06/30/2023 AUDIT-C Answer Date Recorded Q1: How often do you have a drink containing alcohol? Never 10/09/2024 Q2: How many drinks containi ng alcohol do you have on a typical day when you are drinking? Patient does not drink Q3: How often do you have si x or more drinks on one occasion? Never 10/09/2024 Comments Unknown Sex and Gender Information Value [...] Care Team (Late st Contact Info) Description 12/05/2024 8:00 AM EDT Ancillary Procedure [facility] [address] [place] [address] Health Maintenance Due Date Last Done Comments Echocardiogram 1989 HIV Screening 1989 Lipid Panel 1989 Yearly Adult Physical 1989 MMR Vaccines (1 of 1 - Standard series) 1990 Hepatitis C Screening 2007 Hepatitis A Vaccines (1 of 2 - Risk 2-dose series) 2008 Hepatitis B Vaccines (1 of 3 - 19+ 3-dose series) 2008 Pneumococcal Vaccine: Pediatrics and At-Risk Adult Patients (1 of 2 - PCV) 2008 Zoster Vaccines (1 of 2) 2008 HPV/Cotest 2010 HPV Vaccines (1 - Risk 3-dose Standard series) 2016 COVID-19 Vaccine (2 - Woo risk series) 07/21/2020 06/23/2020 Cervical Cancer Screening 05/22/2023 Pap Smear 05/22/2023 05/21/2020 TSH Level 10/27/2023 10/26/2022 Creatinine Level 07/01/2024 07/02/2023, , 06/30/2023, Additional history exists Potassium Level 07/01/2024 07/02/2023, 0507/2023, 06/30/2023, Additional history exists Influenza Vaccine (#1) 2024 3, 11/16/2021, 01/01/2021, Additional history exists Diabetes Screening 08/20/2025 08/20/2024, 0 08/19/2024, 08/18/2024, Additional history exists DTaP/Tdap/Td Vaccines (2 - Td or Tdap) 09/21/2026 09/21/2016 HIB Vaccines Aged Out No [...] this topic Medical Devices Implanted Type Area Director Prospect Device Identifier Shelf Expiration Date Model / Serial / Lot Membrane, Seprafilm, 5 X 6 In - [id number] Implanted:Qty : 1 on 03/05/2023 by Jerad Magaña MD at [facility] Implant N/A: Abdomen [facility] [id number] 10/02/2023 [id number] / / [id number] Procedures Procedure Name Priority Date/Time Associated Diagnosis Comments CT TRANSFER OF OUTSIDE FILMS Routine 10/10/2024 11:03 AM EDT VASC US MESENTERIC ARTERY DUPLEX COMPLETE Routine 10/06/2024 9:40 AM EDT Median arcuate ligament syndrome POCT GLUCOSE Routine 07/03/2023 7:17 AM EDT RENAL FUNCTION PANEL Routine 07/02/2023 6:47 AM EDT from Last 3 Months or Most Recently Relevant to Health Maintenance Results * CT transfer of outside films (10/10/2024 11:03 AM EDT) Narrative IMAGING - 10/10/2024 11:04 AM EDT Outside images for comparison or treatment purposes, not interpreted by Radiologists. Jerad Magaña MD IMG CT PROCEDURES Final Result IMAGING * Vascular US mesenteric artery duplex complete (10/06/2024 9:40 AM EDT) Anatomical Region Laterality Modality Abdomen Echocardiography 10/06/2024 9:13 AM EDT Narrative 10/06/2024 1:59 PM EDT [place] [id number] Vascular Lab Report [facility] US MESENTERIC ARTERY DUPLEX COMPLETE Patient Name: JUAN Oneil Physician: [id number] Ann Rivera MD Study Date: 10/06/2024 Ordering Provider: [id number] JERAD MAGAÑA MRN/PID: [id number] Fellow: Technologist: Leia Degroot RVT Date of /Age: 2 1990 Technologist 2: years Gender: F Admission Status: Outpatient Location [facility] Performed: 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 The patient was NPO for this study. Unable to visualize the celiac, hepatic, and splenic arteries due to extensive bowel gas; attempted in multiple positions. Technically difficult exam due to bowel gas. Imaging & Doppler Findings: AORTA PSV Mid 87.3 cm/s Aorta PSV 87 cm/s SMA Origin PSV 100 cm/s SMA Prox PSV 169 cm/s SMA Mid PSV 131 cm/s SMA Dist PSV 61 cm/s KEELY Prox PSV 118 cm/s [id number] Ann Rivera MD Final Procedure Note Ann Rivera MD, MS - 10/06/[address] [address] Vascular Lab Report [facility]AS US MESENTERIC ARTERY DUPLEX COMPLETE Patient Name: JUAN KONG Reading Physician: [id number] Viera MD Study Date: 10/06/2024 Ordering Provider: [id number] JERAD MPARK MRN/PID: [id number] Fellow: Technologist: Leia Taylor Date of /Age: 1 1990 Technologist 2: years Gender: F Admission Status: Outpatient Location [facility] Performed: 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 The patient was NPO for this study. Unable tovisualize the celiac, hepatic, and splenic arteries due to extensive bowelgas; attempted in multiple positions. Technically difficult exam due tobowel gas. Imaging & Doppler Findings: AORTA PSV Mid 87.3 cm/s Aorta PSV 87 cm/s SMA Origin PSV 100 cm/s SMA Prox PSV 169 cm/s SMA Mid PSV 131 cm/s SMA Dist PSV 61 cm/s KEELY Prox PSV 118 cm/s [id number] Ann Rivera MD Final us Jerad Magaña MD CV VASCULAR PROCEDURES Final Re sult * (ABNORMAL) POCT GLUCOSE (07/03/2023 7:17 AM EDT) POCT Glucose 121(H) 74 - 99 mg/dL 07/03/2023 7:24 AM EDT [facility] Blood Capillary blood specimen / Unknown 07/03/2023 7:17 AM EDT 07/03/2023 7:24 AM EDT us Kina Ann MD LAB POINT OF CARE TE ST DOCKED DEVICE UNSOLICITED RESULTS Final Result [facility] [address] [id number] * (ABNORMAL) Renal Function Panel (07/02/2023 6:47 AM EDT) [facility] Signature Glucose 101(H) 65 - 99 mg/dL 07/02/2023 7:53 AM T [facility] Sodium 137 133 - 145 mmol/L 07/02/2023 7:53 AM [facility] Potassium 3.9 3.4 - 5.1 mmol/L 07/02/2023 7:53 AM [facility] Chloride 103 97 - 107 mmol/L 07/02/2023 7:53 AM [facility] Bicarbonate 23(L) 24 - 31 mmol/L 07/02/2023 7:53 AM [facility] Urea Nitrogen 13 8 - 25 mg/dL 07/02/2023 7:53 AM [facility] Creatinine 0.70 0.40 - 1.60 mg/dL 07/02/2023 7:53 AM [facility] eGFR >90 >60 mL/min/1.7 3m*2 07/02/2023 7:53 AM [facility] Comment: Calculations of estimated GFR are performed using the 2020 CKD-EPI Study Refit equation without the race variable for the IDMS-Traceable creatinine methods. https://jasn.asnjournals.org/content///ASN.7907876807 Calcium 8.6 8.5 - 10.4 mg/dL 07/02/2023 7:53 AM [facility] Phosphorus 4.0 2.5 - 4.5 mg/dL 07/02/2023 7:53 AM [facility] Albumin 4.0 3.5 - 5.0 g/dL 07/02/2023 7:53 AM [facility] Anion Gap 11 <=19 mmol/L 07/02/2023 7:53 AM [facility] Blood Venous blood specimen / Unknown 07/02/2023 6:47 AM EDT 07/02/2023 6:58 AM EDT Loreto Doty MD LAB BLOOD ORDERABLES F inal Result [facility] [address] [place] [address] from Last 3 Months or Most Recently Relevant to Health Maintenance [place] [facility] [place] [facility] MEDICAID Advance Directives For more information, please contact: [phone] (Available ) * Full Code (Latest Code Status on File) Date Activated Date Inactivated Comments 03/05/2023 2:37 PM Question Answer Comments Plan of Care: Code Status Discussion Completed Decision Maker: Patient Care Teams Net Web Developer Relationship Specialty Start Date End Date Generic Provider, No Assigned P[place], [place] [address] PCP - General Security Engineer 06/29/23
--- OUTSIDE RECORDS SUMMARY | 2024-10-27 09:10 | XMS_ITS | Clinical Summary ---
Author Organization [facility] Address [address] [place] [address] Care Team Providers Care Client Director Name Role Phone Thomas Alas MD Primary Care Provider [phone] Allergies Active Allergy Reactions Criticality Noted Date [...] series) 2008 CERVICAL CANCER SCREENING DISCUSSION 2010 HPV VACCINE (1 - 3-dose SCDM series) 2016 COVID-19 VACCINE ( season) 2024 02/18/2021, 06/23/2020 INFLUENZA VACCINE (#1) 2024 3, 11/16/2021, 01/01/2021, Additional history exists TETANUS 09/21/2026 09/21/2016 TDAP (ADULT) Completed 09/21/2016 PNEUMOCOCCAL VACCINE SERIES Aged Out No longer eligible based on patient's age to complete this topic Insurance [employer] [facility] Care Teams Client Director Relationship Specialty Start Date End Date Thomas Alas MD PCP - General 12/30/23
--- OUTSIDE RECORDS SUMMARY | 2024-10-27 09:10 | XMS_ITS | Clinical Summary ---
Author Organization [facility] Address [address], [address] [place] [address] Care Team Providers Care Charity Fundraiser Name Role Phone Anna Mendez APRN - ZEYAD Primary Care Provider [phone] Allergies Active Allergy Reactions Criticality Noted Date [...] of 3 - 19+ 3-dose series) 2008 Flu vaccine (#1) 09/15/2024 11/12/2022, 03/2021, 01/01/2021, Additional history exists COVID-19 Vaccine ( - 2024- season) 2024 02/18/2021, 06/23/2020 DTaP/Tdap/Td vaccine (2 - Td or Tdap) 09/21/2026 09/21/2016 HPV vaccine (No Doses Required) Completed Hepatitis A vaccine Aged Out No longe [...] Relationship Healthcare Agent Relationshi p Communication Jessica Coronarichard Parent Secondary Decision Maker Roddy Garcia Ex-Spouse Primary Decision Maker Care Teams Charity Fundraiser Relationship Specialty Start Date End Date Anna Mendez APRN - SPORTS EDITOR [address] [place] [address] PCP - General 11/28/22
--- OUTSIDE RECORDS SUMMARY | 2024-10-27 09:10 | XMS_ITS | Encounter Summary ---
Author Organization [facility] Address [address] [place] [address] Care Team Providers Care Claims Clerk Name Role Phone Anna Mendez METAL WEATHER STRIPPER Unavailable Unallocated, Noms Provider Primary Care Provi pako Thomas Alas MD Primary Care Provider [phone] Encounter Details Date Type Department Care Team (Late st Contact Info) Description 10/29/2023 Abstract [facility] [address] [place] [id number] Vero Medeiros LPN [address] [id number] Social History Tobacco Use Types Packs/Day Years [...] on filedocumented in this encounter Care Teams Claims Clerk Relationship Specialty Start Date End Date Unallocated, [place] [address] PCP - General 07/23/22 12/13/23 Thomas Alas MD [address] [place] [address] PCP - General Family Medicine 12/14/23 Anna Mendez NP [address] [place] [address] Referring Physician Family Medicine 07/23/22 documented as of this encounter
--- OUTSIDE RECORDS SUMMARY | 2024-10-27 09:10 | XMS_ITS | Encounter Summary ---
Author Organization [facility] [employer] Address [address] [place] [address] Care Team Providers Care Kiss Mixer Name Role Phone Thomas Alas MD Primary Care Provider [phone] Reason for Visit * Reason Onset Date Comments Appointment 04/18/2024 Encounter Details Date Type Department Care Team (Late st Contact Info) Description 04/18/2024 Telephone Central Scheduling [address] [place] [address] Joanne Shi Appointment Social History Tobacco [...] until 2025. The patient also follows with [facility]. I would recommend maintaining [...] Please advise Preferred call back time: Anytime [phone] Will warm connect patient to nursing line [...] on filedocumented in this encounter Care Teams Kiss Mixer Relationship Specialty Start Date End Date Thomas Alas MD PCP - General 12/30/23 documented as of this encounter
[2024-10-27 09:12] VITALS: BP 160/101; PULSE 91; TEMP 37.2; O2SAT 100; BMI 29.1
[2024-10-27 09:25] VITALS: O2SAT 100
[2024-10-27 09:30] LABS: Hematocrit 34.5 % (36.0-48.0); Hemoglobin 11.6 g/dL (12.0-16.0); Immature Granulocytes Abs Auto 0.00 10^3/uL (0.00-0.03); Immature Granulocytes Pct Auto 0.0 % (0.0-0.5); Lymphocytes Absolute Auto 1.5 10^3/uL (1.2-3.8); Mean Corpuscular HGB Conc 33.6 g/dL (29.9-35.2); Mean Corpuscular Hemoglobin 29.5 pg (26.7-34.0); Mean Corpuscular Volume 87.8 fL (81.0-99.0); Platelet Count 272 10^3/uL (150-450); Red Blood Count 3.93 10^6/uL (4.20-5.40); White Blood Count 3.4 10^3/uL (4.0-11.0)
[2024-10-27 09:41] LABS: Alanine Aminotransferase 21 U/L (14-59); Albumin Globulin Ratio 1.2; Albumin Level 3.5 g/dL (3.4-5.0); Alkaline Phosphatase 70 U/L (46-116); Anion Gap 13.9; Aspartate Amino Transferase 26 U/L (15-37); Blood Urea Nitrogen 5.0 mg/dL (7.0-18.0); Calcium 8.1 mg/dL (8.5-10.1); Carbon Dioxide 23.7 mmol/L (21.0-32.0); Chloride 109 mmol/L (98-107); Estimated GFR (African America >60 (>=60 mL/min/1.73m^2); Estimated GFR (Non-African Ame >60 (>=60 mL/min/1.73m^2); Globulin 3.0 g/dL; Glucose 85 mg/dL (74-106); Lipase 76.0 U/L (16.0-77.0); Magnesium 1.7 mg/dL (1.8-2.4); Potassium 3.6 mmol/L (3.5-5.1); Sodium 143 mmol/L (136-145); Total Protein 6.5 g/dL (6.4-8.2)
[2024-10-27] MEDS: 0.9 % SODIUM CHLORIDE 1,000 ML 1000 ML IV (09:43)
[2024-10-27] MEDS: FAMOTIDINE/PF 20 MG/2 ML VIAL IV (09:44)
[2024-10-27] MEDS: HYDROMORPHONE HCL 0.5 MG/0.5 ML SYRINGE IV (09:47)
[2024-10-27] MEDS: lidocaine HCL 15 ML, MAG HYDROX/ALUMINUM HYD/SIMETH 30 ML, HYOSCYAMINE SULFATE 0.25 MG PO (10:23)
[2024-10-27 10:25] VITALS: BP 158/87; PULSE 84; O2SAT 100
--- NOTE | 2024-10-27 12:56 | ED.NAVMDI1 ---
HPI - Nausea/Vomiting/Diarrhea General Chief complaint: Nausea/Vomiting/Diarrhea Stated complaint: ABDOMINAL PAIN, NAUSEA, VOMITING Time Seen by Provider: 10/27/24 09:09 Source: patient Mode of arrival: walk-in Limitations: no limitations History of Present Illness HPI Narrative: The patient is very well-known to us presents to us with nausea vomiting and abdominal pain mostly epigastric. To have a history of gastroparesis she had Hodges placed for fluids and she usually gets to infusion center medication. Including IV fluid and Compazine The patient just came from the infusion center after she still have symptoms of nausea vomiting for the last 5 days she also was complaining of pain Patient have chronic pain use at home as well the patient is planned to have PEG tube placed in November by [facility] where she go there for GI management Related Data Home Medications ?Medication ?Instructions ?Recorded ?Confirmed hydroxyzine HCl 25 mg tablet 25 mg PO BID PRN anxiety 09/17/22 08/28/24 topiramate 100 mg tablet 100 mg PO BID 09/17/22 08/28/24 metoclopramide HCl 10 mg tablet 10 mg PO AC PRN nausea and vomiting 06/14/23 08/28/24 Held on 10/27/24. Instructions: Resume on 11/06/24. escitalopram oxalate 20 mg tablet 20 mg PO DAILY 06/15/23 08/28/24 levothyroxine 75 mcg tablet 75 mcg PO DAILY 06/15/23 08/28/24 acetaminophen 325 mg tablet (Pain 650 mg PO Q4H PRN pain 06/24/23 08/28/24 Relief (acetaminophen)) [facility] 03/29/24 08/16/24 Ultra Test strips) blood-glucose meter (OneTouch 03/29/24 08/16/24 Ultra2 Meter) blood-glucose sensor (FreeStyle 03/29/24 08/16/24 Hunter 3 Plus Sensor device) fentanyl 25 mcg/hr transdermal 1 patch transdermal Q72H 03/29/24 08/28/24 patch hydrocodone 5 mg-acetaminophen 325 1 tab PO Q4H PRN pain 03/29/24 08/28/24 mg tablet lancets 30 gauge (OneTouch Delica 03/29/24 08/16/24 Plus Lancet) omeprazole 40 mg capsule,delayed 40 mg PO BID 03/29/24 08/28/24 release pen needle, diabetic 32 gauge x 03/29/24 08/16/24 5/32 (BD Stefania 2nd Gen Pen Needle) prucalopride 2 mg tablet 2 mg PO DAILY 03/29/24 08/28/24 trazodone 100 mg tablet 100 mg PO .qhs 03/29/24 08/28/24 ergocalciferol (vitamin D2) 1,250 1,250 mcg PO .Q7 06/21/24 08/28/24 mcg (50,000 unit) capsule hydrocortisone 10 mg tablet 10 mg PO DAILY 08/16/24 08/28/24 mirtazapine 45 mg tablet 45 mg PO BEDTIME 08/16/24 08/28/24 ondansetron 4 mg disintegrating 8 mg PO Q4H PRN nausea and vomiting 08/16/24 08/28/24 tablet Previous Rx's ?Medication ?Instructions ?Recorded tramadol 50 mg tablet 50 mg PO Q6H PRN pain #28 tabs 06/16/23 Lactobacillus 1 tab PO BID #40 wafers 09/02/24 acidophilus-Lactbacill.bifidus 1 billion cell oral wafer cefdinir 300 mg capsule 300 mg PO Q12H 14 days #28 caps 09/02/24 methocarbamol 500 mg tablet 500 mg PO BID PRN Muscle spasm #0 09/02/24 tabs promethazine 25 mg rectal 25 mg [place] Q6H PRN nausea and 10/27/24 suppository vomiting #12 ea promethazine 25 mg tablet 25 mg PO TID PRN nausea and 10/27/24 vomiting #10 tabs Allergies Allergy/AdvReac Type Severity Reaction Status Date / Time adhesive Allergy Rash Verified 10/24/24 09:37 NSAIDS (Non-Steroidal Allergy intolerance Verified 10/24/24 09:37 Anti-Inflamma codeine AdvReac Vomiting Verified 10/24/24 09:37 Review of Systems ROS Status of ROS 10 or more systems reviewed and unremarkable except as noted in history and below [facility] Medical History (Updated 10/27/24 @ 10:17 by Barbara Benítez MD) Hypoglycemia ?E16.2 - Hypoglycemia, unspecified (ICD-10) Gastroenteritis ?K52.9 - Noninfective gastroenteritis and colitis, unspecified (ICD-10) Feeding by G-tube ?Z93.1 - Gastrostomy status (ICD-10) Abdominal pain ?R10.9 - Unspecified abdominal pain (ICD-10) Small bowel intussusception ?K56.1 - Intussusception (ICD-10) Nausea and vomiting ?R11.2 - Nausea with vomiting, unspecified (ICD-10) Flank pain ?R10.9 - Unspecified abdominal pain (ICD-10) Abdominal pain ?R10.9 - Unspecified abdominal pain (ICD-10) Acute abdomen ?R10.0 - Acute abdomen (ICD-10) Intractable nausea and vomiting ?R11.2 - Nausea with vomiting, unspecified (ICD-10) Intractable abdominal pain ?R10.9 - Unspecified abdominal pain (ICD-10) Depression ?F32.A - Depression, unspecified (ICD-10) Asthma ?J45.909 - Unspecified asthma, uncomplicated (ICD-10) Dyspareunia Pelvic pain ?R10.2 - Pelvic and perineal pain (ICD-10) Ovarian cyst ?N83.209 - Unspecified ovarian cyst, unspecified side (ICD-10) PONV (postoperative nausea and vomiting) ?R11.2 - Nausea with vomiting, unspecified (ICD-10) ?Z98.890 - Other specified postprocedural states (ICD-10) PCOS (polycystic ovarian syndrome) ?E28.2 - Polycystic ovarian syndrome (ICD-10) Hypothyroidism (acquired) ?E03.9 - Hypothyroidism, unspecified (ICD-10) Anxiety ?F41.9 - Anxiety disorder, unspecified (ICD-10) GERD (gastroesophageal reflux disease) ?K21.9 - Gastro-esophageal reflux disease without esophagitis (ICD-10) Sleep apnea ?G47.30 - Sleep apnea, unspecified (ICD-10) Anemia ?D64.9 - Anemia, unspecified (ICD-10) Fibromyalgia ?M79.7 - Fibromyalgia (ICD-10) Syncope (07/07/13) ?R55 - Syncope and collapse (ICD-10) Shingles ?B02.9 - Zoster without complications (ICD-10) Headache ?R51.9 - Headache, unspecified (ICD-10) Migraine ?G43.909 - Migraine, unspecified, not intractable, without status migrainosus (ICD-10) Mechanical ileus (01/31/20) ?K56.609 - Unspecified intestinal obstruction, unspecified as to partial versus complete obstruction (ICD-10) COVID-19 (~02/2020) ?U07.1 - COVID-19 (ICD-10) Kidney stones ?N20.0 - Calculus of kidney (ICD-10) Surgical History S/P percutaneous endoscopic gastrostomy (PEG) tube placement ?Z93.1 - Gastrostomy status (ICD-10) 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 - Celiac artery compression syndrome (ICD-10) H/O shoulder surgery (2022) ?Z98.890 - Other specified postprocedural states (ICD-10) History of hip surgery ?Z98.890 - Other specified postprocedural states (ICD-10) S/P right knee arthroscopy ?Z98.890 - Other specified postprocedural states (ICD-10) S/P left knee arthroscopy ?Z98.890 - Other specified postprocedural states (ICD-10) Hx of tonsillectomy ?Z90.89 - Acquired absence of other organs (ICD-10) History of thoracic surgery (~2021) ?Z98.890 - Other specified postprocedural states (ICD-10) History of esophagogastroduodenoscopy (EGD) (10/04/13) ?Z98.890 - Other specified postprocedural states (ICD-10) History of cholecystectomy (10/06/13) ?Z90.49 - Acquired absence of other specified parts of digestive tract (ICD-10) Delivery by section (~2016) Delivery by section (01/17/18) H/O colonoscopy (~2018) ?Z98.890 - Other specified postprocedural states (ICD-10) S/P right knee arthroscopy (07/21/18) ?Z98.890 - Other specified postprocedural states (ICD-10) Delivery by section (06/19/19) History of appendectomy (09/25/19) ?Z90.49 - Acquired absence of other specified parts of digestive tract (ICD-10) H/O laparoscopy (11/10/19) ?Z98.890 - Other specified postprocedural states (ICD-10) History of liver biopsy (~04/2020) ?Z98.890 - Other specified postprocedural states (ICD-10) H/O laparoscopy (07/18/20) ?Z98.890 - Other specified postprocedural states (ICD-10) H/O arthroscopy of right knee (08/07/20) ?Z98.890 - Other specified postprocedural states (ICD-10) S/P laparoscopic sleeve gastrectomy (09/03/20) ?Z98.84 - Bariatric surgery status (ICD-10) H/O: hysterectomy (11/12/20) ?Z90.710 - Acquired absence of both cervix and uterus (ICD-10) History of hernia repair (03/20/21) ?Z98.890 - Other specified postprocedural states (ICD-10) ?Z87.19 - Personal history of other diseases of the digestive system (ICD-10) Family History Other Family history of cancer Family history of diabetes mellitus Family history of hypertension Family history of myocardial infarction PONV (postoperative nausea and vomiting) Social History (Updated 08/16/24 @ 04:44 by Shelley Wong) Within the past year, how often did you have a drink containing alcohol: never Score interpretation: A score less than 3 is consistent with normal alcohol consumption. Smoking status: Never smoker Non-prescribed substance use: denies use Previous occupational history: disabled Known occupational exposures/hazards details: disabled Highest level of school completed/degree received: Master's degree Are you now , , , , never or living with a partner: In a typical week, how many times do you talk on the telephone with family, friends, or neighbors: 3 or more times per week How often do you get together with friends or relatives: twice per week How often do you attend hoahaoism or latter-day services: 4 or more times per year Do you belong to any clubs or organizations such as hoahaoism groups unions, fraternal or athletic groups, or school groups: no Total score: 3 Score interpretation: A score of greater than or equal to 2 indicates the lowest level of social isolation. Little interest or pleasure in doing things: not at all Feeling down, depressed, or hopeless: not at all Feel stressed/tense/nervous/anxious/difficulty sleeping: to some extent Do you think of yourself as: straight/heterosexual Gender Identity: female Exam Narrative Exam Narrative: Nurses notes and vital signs reviewed and patient is not hypoxic. General: Well-appearing and in no apparent distress. Skin: Warm, dry, no pallor noted. No rash. Head: Normocephalic, atraumatic. Neck: Supple, non-tender. Cardiovascular: Regular Rate and Rhythm without murmur, gallop or rub. Respiratory: No accessory muscle use or respiratory distress. Lungs are clear to auscultation, no wheezing, rales or rhonchi Chest Wall: Right sided chest wall Hodges in place Back: No midline thoracic or lumbar vertebral tenderness. No CVA tenderness Musculoskeletal: normal ROM, no calf or popliteal tenderness, no lower extremity edema/swelling GI: Abdomen is soft, non-distended. Epigastric discomfort No masses appreciated. No tenderness to palpation. No rebound, guarding, or rigidity noted. Neurological: A&O x4. No cranial nerve dysfunction observed. No truncal ataxia. Moves all extremities. Sensation intact. Psychiatric: Cooperative and interactive. Normal mood and affect. Constitutional Vital Signs, click to edit/add: Last Vital Signs Temp 98.9 F 10/27/24 09:12 Pulse 84 10/27/24 10:25 Resp 18 10/27/24 10:25 BP 158/87 H 10/27/24 10:25 Pulse Ox 100 10/27/24 10:25 O2 Del Method Room Air 10/27/24 10:25 Course Vital Signs Vital signs: Vital Signs Temperature 98.9 F 10/27/24 09:12 Pulse Rate 91 H 10/27/24 09:12 Respiratory Rate 18 10/27/24 09:12 Blood Pressure 160/101 H 10/27/24 09:12 Pulse Oximetry 100 10/27/24 09:12 Oxygen Delivery Method Room Air 10/27/24 09:12 Temperature 98.9 F 10/27/24 09:12 Pulse Rate 84 10/27/24 10:25 Respiratory Rate 18 10/27/24 10:25 Blood Pressure 158/87 H 10/27/24 10:25 Pulse Oximetry 100 10/27/24 10:25 Oxygen Delivery Method Room Air 10/27/24 10:25 MDM - Nausea/Vomiting/Diarrhea MDM Narrative Medical decision making narrative: The patient CBC and chemistry showed no acute significant pathology except for some mild hypomagnesemia which is a chronic finding and the patient workup instructed about increasing her magnesium intake The patient was provided with IV fluid as well as Dilaudid and 1 dose of Zofran after which she was feeling better she also was provided with GI cocktail Patient discharged home on Phenergan suppository and Phenergan pills and she was instructed to make sure that when taking Phenergan she will make sure that whether it is a suppository or pills she will take it every 8 hours as needed The patient to come back to the ER in case of any new symptom but right now she is feeling much better Lab Data Labs: Lab Results 10/27/24 Range/Units 09:15 WBC 3.4 L (4.0-11.0) 10^3/uL RBC 3.93 L (4.20-5.40) 10^6/uL Hgb 11.6 L (12.0-16.0) g/dL Hct 34.5 L (36.0-48.0) % MCV 87.8 (81.0-99.0) fL MCH 29.5 (26.7-34.0) pg MCHC 33.6 (29.9-35.2) g/dL RDW 13.4 (11.0-15.0) % Plt Count 272 (150-450) 10^3/uL MPV 10.3 (9.5-13.5) fL Neut % (Auto) 47.0 (43.0-75.0) % Lymph % (Auto) 43.8 (20.5-60.0) % [place] % (Auto) 7.7 (1.7-12.0) % Eos % (Auto) 1.2 (0.9-7.0) % Baso % (Auto) 0.3 (0.2-2.0) % Neut # (Auto) 1.6 (1.4-6.5) 10^3/uL Lymph # (Auto) 1.5 (1.2-3.8) 10^3/uL [place] # (Auto) 0.3 (0.3-0.8) 10^3/uL Eos # (Auto) 0.0 (0.0-0.7) 10^3/uL Baso # (Auto) 0.0 (0.0-0.1) 10^3/uL Abs Immat Gran (auto) 0.00 (0.00-0.03) 10^3/uL Imm/Tot Granulo (auto) 0.0 (0.0-0.5) % Sodium 143 (136-145) mmol/L Potassium 3.6 (3.5-5.1) mmol/L Chloride 109 H (98-107) mmol/L Carbon Dioxide 23.7 (21.0-32.0) mmol/L Anion Gap 13.9 BUN 5.0 L (7.0-18.0) mg/dL Creatinine 0.66 (0.55-1.02) mg/dL Est GFR ( Amer) >60 (>=60 mL/min/1.73m^2) Est GFR (Non-Af Amer) >60 (>=60 mL/min/1.73m^2) BUN/Creatinine Ratio 7.6 Glucose 85 (74-106) mg/dL Calcium 8.1 L (8.5-10.1) mg/dL Magnesium 1.7 L (1.8-2.4) mg/dL Total Bilirubin 0.4 (0.2-1.0) mg/dL AST 26 (15-37) U/L ALT 21 (14-59) U/L Alkaline Phosphatase 70 (46-116) U/L Total Protein 6.5 (6.4-8.2) g/dL Albumin 3.5 (3.4-5.0) g/dL Globulin 3.0 g/dL Albumin/Globulin Ratio 1.2 Lipase 76.0 (16.0-77.0) U/L Serum HCG, Qual Negative (NEGATIVE) Discharge Plan Discharge Chief Complaint: Nausea/Vomiting/Diarrhea Clinical Impression: Gastroparesis, Hypomagnesemia Patient Disposition: Home, Self-Care Time of Disposition Decision: 10:14 Condition: Good Prescriptions / Home Meds: New promethazine 25 mg tablet 25 mg PO TID PRN (Reason: nausea and vomiting) Qty: 10 0RF promethazine 25 mg suppository 25 mg AZ Q6H PRN (Reason: nausea and vomiting) Qty: 12 0RF Held metoclopramide HCl 10 mg tablet 10 mg PO AC PRN (Reason: nausea and vomiting) Hold Instructions: Resume on 11/06/24. No Action (DME) blood-glucose meter [OneTouch Ultra2 Meter] Misc MISCELLANEOUS (DME) OneTouch Ultra Test Strip MISCELLANEOUS fentanyl 25 mcg/hr patch 72 hour 1 patch transdermal Q72H (DME) FreeStyle Hunter 3 Plus Sensor Device MISCELLANEOUS hydrocodone-acetaminophen 5-325 mg tablet 1 tab PO Q4H PRN (Reason: pain) (DME) lancets [OneTouch Delica Plus Lancet] 30 gauge mis MISCELLANEOUS omeprazole 40 mg capsule,delayed release(DR/EC) 40 mg PO BID (DME) pen needle, diabetic [BD Stefania 2nd Gen Pen Needle] 32 gauge x 5/32 needle MISCELLANEOUS prucalopride 2 mg tablet 2 mg PO DAILY trazodone 100 mg tablet 100 mg PO .qhs mirtazapine 45 mg tablet 45 mg PO BEDTIME hydrocortisone 10 mg tablet 10 mg PO DAILY ondansetron 4 mg tablet,disintegrating 8 mg PO Q4H PRN (Reason: nausea and vomiting) methocarbamol 500 mg tablet 500 mg PO BID PRN (Reason: Muscle spasm) Qty: 0 0RF cefdinir 300 mg capsule 300 mg PO Q12H 14 Days Qty: 28 0RF Lactobacillus acidoph-L. bifid 1 billion cell wafer 1 tab PO BID Qty: 40 0RF Rx Instructions: administer (preferably) with milk hydroxyzine HCl 25 mg tablet 25 mg PO BID PRN (Reason: anxiety) topiramate 100 mg tablet 100 mg PO BID levothyroxine 75 mcg tablet 75 mcg PO DAILY escitalopram oxalate 20 mg tablet 20 mg PO DAILY tramadol 50 mg tablet 50 mg PO Q6H PRN (Reason: pain) Qty: 28 0RF acetaminophen [Pain Relief (acetaminophen)] 325 mg tablet 650 mg PO Q4H PRN (Reason: pain) ergocalciferol (vitamin D2) 1,250 mcg (50,000 unit) capsule 1,250 mcg PO .Q7 Print Language: Welsh Instructions: Hypomagnesemia (ED), Gastroparesis (ED) Referrals: Thomas Alas MD [Primary Care Provider, Family Practice] - 1 week Discharge Date/Time: 10/27/24 10:26
== END 2024-10-27 10:26 | disposition home or self-care (01) ==
PROVIDERS: Emergency Provider Emergency Medicine; PCP Family Medicine
DX: K31.84 Gastroparesis (principal); E83.42 Hypomagnesemia; E86.0 Dehydration
CPT/HCPCS: 36415; 80053; 83690; 83735; 84703; 85025; 96361; 96374; 96375; 99284; J0780; J1171; J1200; J2405; J3490

== ENCOUNTER 2024-10-30 10:09 | Emergency (ER) | payer MEDICAID, SELFPAY ==
[2024-10-30] VITALS (53 sets, daily range): BP systolic 75–159; BP diastolic 52–101; PULSE 71–110; TEMP 36.6; O2SAT 84–100; BMI 29.1
--- NOTE | 2024-10-30 10:12 | XR_ITS ---
The [address] [address] Patient Name: JUAN KONG MRN: [id number] date: 1990 Sex: F Assigned Patient Location: ED.MAIN Current Patient Location: ED.MAIN Accession/Order Number: [id number] Exam Date: 10/30/2024 10:20 Report Date: 10/30/2024 10:45 At the request of: WALKER WILLOUGHBY MD Procedure: XR chest 1V PORTABLE AP ERECT CHEST 1006 hours CLINICAL HISTORY: Chest pain after receiving medications at the infusion center COMPARISON: None There is shallow inspiration. The heart is within normal limits. There is interval increase in perihilar markings that may be mild congestion. No developing consolidation is noted. There is no effusion or pneumothorax. The osseous structures are intact. XR/XR chest 1V IMPRESSION: SUSPECTED PERIHILAR CONGESTION. NO OTHER ACUTE FINDINGS Impression dictated by: Maricruz Hutchinson M.D. 10/30/2024 10:45 AM Dictation Location[facility] Electronically authenticated by: [id number] Y Date: 10/30/2024 10:45
--- NOTE | 2024-10-30 10:12 | ECG_ITS ---
The [facility] Test Date: 2024-10-30 Pat Name: JUAN KONG Department: Room: - Gender: Female [employer]: : 1990 Requested By: [id number] Order Number: [id number] Reading MD: WILDER DEE Measurements Intervals [place] Rate: 99 P: 67 [place]: 136 QRS: 62 QRSD: 82 T: 63 QT: 366 QTc: 422 Interpretive Statements 1100 Sinus rhythm Poor R wave progresison cannot rule out septal infarct Abnormal ECG Compared to ECG 10/24/2024 09:43:05 Short [place] interval no longer present Septal infarct age indeterminate now present Electronically Signed On 10-30-2024 16:53:59 EDT by WILDER DEE
--- NOTE | 2024-10-30 10:21 | ED.CHESTPAI1 ---
HPI - Chest Pain General Chief Complaint: Chest Pain Stated Complaint: CHEST PAIN Time Seen by Provider: 10/30/24 10:12 History of Present Illness HPI narrative: The patient is a 34-year-old female who is very well-known to us coming to the ER after she was in the infusion center, patient have a history of gastroparesis and she take daily infusion of Compazine and Benadryl and the patient today during the Compazine infusion the patient started complaining left-sided chest pain pressure-like Radiating to the back associated with nausea and difficulty breathing Related Data Home Medications ?Medication ?Instructions ?Recorded ?Confirmed hydroxyzine HCl 25 mg tablet 25 mg PO BID PRN anxiety 09/17/22 08/28/24 topiramate 100 mg tablet 100 mg PO BID 09/17/22 08/28/24 metoclopramide HCl 10 mg tablet 10 mg PO AC PRN nausea and vomiting 06/14/23 08/28/24 Held on 10/27/24. Instructions: Resume on 11/06/24. escitalopram oxalate 20 mg tablet 20 mg PO DAILY 06/15/23 08/28/24 levothyroxine 75 mcg tablet 75 mcg PO DAILY 06/15/23 08/28/24 acetaminophen 325 mg tablet (Pain 650 mg PO Q4H PRN pain 06/24/23 08/28/24 Relief (acetaminophen)) blood sugar diagnostic ([facility] 03/29/24 08/16/24 Ultra Test strips) blood-glucose meter ([facility] 03/29/24 08/16/24 Ultra2 Meter) blood-glucose sensor ([facility] 03/29/24 08/16/24 Hunter 3 Plus Sensor device) fentanyl 25 mcg/hr transdermal 1 patch transdermal Q72H 03/29/24 08/28/24 patch hydrocodone 5 mg-acetaminophen 325 1 tab PO Q4H PRN pain 03/29/24 08/28/24 mg tablet lancets 30 gauge (OneTouch Delica 03/29/24 08/16/24 Plus Lancet) omeprazole 40 mg capsule,delayed 40 mg PO BID 03/29/24 08/28/24 release pen needle, diabetic 32 gauge x 03/29/24 08/16/24 5/32 (BD Stefania 2nd Gen Pen Needle) prucalopride 2 mg tablet 2 mg PO DAILY 03/29/24 08/28/24 trazodone 100 mg tablet 100 mg PO .qhs 03/29/24 08/28/24 ergocalciferol (vitamin D2) 1,250 1,250 mcg PO .Q7 06/21/24 08/28/24 mcg (50,000 unit) capsule hydrocortisone 10 mg tablet 10 mg PO DAILY 08/16/24 08/28/24 mirtazapine 45 mg tablet 45 mg PO BEDTIME 08/16/24 08/28/24 ondansetron 4 mg disintegrating 8 mg PO Q4H PRN nausea and vomiting 08/16/24 08/28/24 tablet Previous Rx's ?Medication ?Instructions ?Recorded tramadol 50 mg tablet 50 mg PO Q6H PRN pain #28 tabs 06/16/23 Lactobacillus 1 tab PO BID #40 wafers 09/02/24 acidophilus-Lactbacill.bifidus 1 billion cell oral wafer cefdinir 300 mg capsule 300 mg PO Q12H 14 days #28 caps 09/02/24 methocarbamol 500 mg tablet 500 mg PO BID PRN Muscle spasm #0 09/02/24 tabs promethazine 25 mg rectal 25 mg CO Q6H PRN nausea and 10/27/24 suppository vomiting #12 ea promethazine 25 mg tablet 25 mg PO TID PRN nausea and 10/27/24 vomiting #10 tabs Allergies Allergy/AdvReac Type Severity Reaction Status Date / Time adhesive Allergy Rash Verified 10/30/24 10:18 NSAIDS (Non-Steroidal Allergy intolerance Verified 10/30/24 10:18 Anti-Inflamma codeine AdvReac Vomiting Verified 10/30/24 10:18 Review of Systems ROS Status of ROS 10 or more systems reviewed and unremarkable except as noted in history and below [facility] Medical History (Updated 10/30/24 @ 15:15 by Barbara Benítez MD) Hypoglycemia ?E16.2 - Hypoglycemia, unspecified (ICD-10) Gastroenteritis ?K52.9 - Noninfective gastroenteritis and colitis, unspecified (ICD-10) Feeding by G-tube ?Z93.1 - Gastrostomy status (ICD-10) Abdominal pain ?R10.9 - Unspecified abdominal pain (ICD-10) Small bowel intussusception ?K56.1 - Intussusception (ICD-10) Nausea and vomiting ?R11.2 - Nausea with vomiting, unspecified (ICD-10) Flank pain ?R10.9 - Unspecified abdominal pain (ICD-10) Abdominal pain ?R10.9 - Unspecified abdominal pain (ICD-10) Acute abdomen ?R10.0 - Acute abdomen (ICD-10) Intractable nausea and vomiting ?R11.2 - Nausea with vomiting, unspecified (ICD-10) Intractable abdominal pain ?R10.9 - Unspecified abdominal pain (ICD-10) Depression ?F32.A - Depression, unspecified (ICD-10) Asthma ?J45.909 - Unspecified asthma, uncomplicated (ICD-10) Dyspareunia Pelvic pain ?R10.2 - Pelvic and perineal pain (ICD-10) Ovarian cyst ?N83.209 - Unspecified ovarian cyst, unspecified side (ICD-10) PONV (postoperative nausea and vomiting) ?R11.2 - Nausea with vomiting, unspecified (ICD-10) ?Z98.890 - Other specified postprocedural states (ICD-10) PCOS (polycystic ovarian syndrome) ?E28.2 - Polycystic ovarian syndrome (ICD-10) Hypothyroidism (acquired) ?E03.9 - Hypothyroidism, unspecified (ICD-10) Anxiety ?F41.9 - Anxiety disorder, unspecified (ICD-10) GERD (gastroesophageal reflux disease) ?K21.9 - Gastro-esophageal reflux disease without esophagitis (ICD-10) Sleep apnea ?G47.30 - Sleep apnea, unspecified (ICD-10) Anemia ?D64.9 - Anemia, unspecified (ICD-10) Fibromyalgia ?M79.7 - Fibromyalgia (ICD-10) Syncope (07/07/13) ?R55 - Syncope and collapse (ICD-10) Shingles ?B02.9 - Zoster without complications (ICD-10) Headache ?R51.9 - Headache, unspecified (ICD-10) Migraine ?G43.909 - Migraine, unspecified, not intractable, without status migrainosus (ICD-10) Mechanical ileus (01/31/20) ?K56.609 - Unspecified intestinal obstruction, unspecified as to partial versus complete obstruction (ICD-10) COVID-19 (~02/2020) ?U07.1 - COVID-19 (ICD-10) Kidney stones ?N20.0 - Calculus of kidney (ICD-10) Surgical History S/P percutaneous endoscopic gastrostomy (PEG) tube placement ?Z93.1 - Gastrostomy status (ICD-10) 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 - Celiac artery compression syndrome (ICD-10) H/O shoulder surgery (2022) ?Z98.890 - Other specified postprocedural states (ICD-10) History of hip surgery ?Z98.890 - Other specified postprocedural states (ICD-10) S/P right knee arthroscopy ?Z98.890 - Other specified postprocedural states (ICD-10) S/P left knee arthroscopy ?Z98.890 - Other specified postprocedural states (ICD-10) Hx of tonsillectomy ?Z90.89 - Acquired absence of other organs (ICD-10) History of thoracic surgery (~2021) ?Z98.890 - Other specified postprocedural states (ICD-10) History of esophagogastroduodenoscopy (EGD) (10/04/13) ?Z98.890 - Other specified postprocedural states (ICD-10) History of cholecystectomy (10/06/13) ?Z90.49 - Acquired absence of other specified parts of digestive tract (ICD-10) Delivery by section (~2016) Delivery by section (01/17/18) H/O colonoscopy (~2018) ?Z98.890 - Other specified postprocedural states (ICD-10) S/P right knee arthroscopy (07/21/18) ?Z98.890 - Other specified postprocedural states (ICD-10) Delivery by section (06/19/19) History of appendectomy (09/25/19) ?Z90.49 - Acquired absence of other specified parts of digestive tract (ICD-10) H/O laparoscopy (11/10/19) ?Z98.890 - Other specified postprocedural states (ICD-10) History of liver biopsy (~04/2020) ?Z98.890 - Other specified postprocedural states (ICD-10) H/O laparoscopy (07/18/20) ?Z98.890 - Other specified postprocedural states (ICD-10) H/O arthroscopy of right knee (08/07/20) ?Z98.890 - Other specified postprocedural states (ICD-10) S/P laparoscopic sleeve gastrectomy (09/03/20) ?Z98.84 - Bariatric surgery status (ICD-10) H/O: hysterectomy (11/12/20) ?Z90.710 - Acquired absence of both cervix and uterus (ICD-10) History of hernia repair (03/20/21) ?Z98.890 - Other specified postprocedural states (ICD-10) ?Z87.19 - Personal history of other diseases of the digestive system (ICD-10) Family History Other Family history of cancer Family history of diabetes mellitus Family history of hypertension Family history of myocardial infarction PONV (postoperative nausea and vomiting) Social History (Updated 08/16/24 @ 04:44 by Shelley Wong) Within the past year, how often did you have a drink containing alcohol: never Score interpretation: A score less than 3 is consistent with normal alcohol consumption. Smoking status: Never smoker Non-prescribed substance use: denies use Previous occupational history: disabled Known occupational exposures/hazards details: disabled Highest level of school completed/degree received: Master's degree Are you now , , , , never or living with a partner: In a typical week, how many times do you talk on the telephone with family, friends, or neighbors: 3 or more times per week How often do you get together with friends or relatives: twice per week How often do you attend yarsanism or episcopalian services: 4 or more times per year Do you belong to any clubs or organizations such as yarsanism groups unions, fraternal or athletic groups, or school groups: no Total score: 3 Score interpretation: A score of greater than or equal to 2 indicates the lowest level of social isolation. Little interest or pleasure in doing things: not at all Feeling down, depressed, or hopeless: not at all Feel stressed/tense/nervous/anxious/difficulty sleeping: to some extent Do you think of yourself as: straight/heterosexual Gender Identity: female Exam Narrative Exam Narrative: Nurses notes and vital signs reviewed and patient is not hypoxic. General: Well-appearing and in no apparent distress. Skin: Warm, dry, no pallor noted. No rash. Head: Normocephalic, atraumatic. Neck: Supple, non-tender. Cardiovascular: Regular Rate and Rhythm without murmur, gallop or rub. Respiratory: No accessory muscle use or respiratory distress. Lungs are clear to auscultation, no wheezing, rales or rhonchi Chest Wall: no tenderness and the patient have a Hodges in the right upper chest no signs of infection at the insertion site Back: No midline thoracic or lumbar vertebral tenderness. No CVA tenderness Musculoskeletal: normal ROM, no calf or popliteal tenderness, no lower extremity edema/swelling GI: Abdomen is soft, non-distended. Normal bowel sounds. No masses appreciated. No tenderness to palpation. No rebound, guarding, or rigidity noted. Neurological: A&O x4. No cranial nerve dysfunction observed. Constitutional Vital Signs, click to edit/add: Last Vital Signs Temp 97.8 F 10/30/24 10:18 Pulse 87 10/30/24 14:21 Resp 16 10/30/24 14:21 BP 105/65 10/30/24 14:21 Pulse Ox 100 10/30/24 14:21 O2 Del Method Room Air 10/30/24 10:40 Course Vital Signs Vital signs: Vital Signs Pulse Oximetry 84 L 10/30/24 10:14 Temperature 97.8 F 10/30/24 10:18 Pulse Rate 87 10/30/24 14:21 Respiratory Rate 16 10/30/24 14:21 Blood Pressure 105/65 10/30/24 14:21 Pulse Oximetry 100 10/30/24 14:21 Oxygen Delivery Method Room Air 10/30/24 10:40 MDM - Chest Pain MDM Narrative Medical decision making narrative: The patient EKG showing sinus rhythm with a heart rate of [address] elevation or depression CBC and chemistry showed no acute pathology but the patient troponin was repeated after the first 1 was negative at 40 the second 1 was 390 the patient still continues to have pain although it is better She initially was treated with Dilaudid as well as Zofran and then she was treated again with morphine and Zofran The patient also received IV fluid here because her blood pressure was in the lower normal which the patient saying that it is always her baseline The patient blood pressure right now is 99/68 Patient case was discussed with recommended that the patient be started on heparin The patient was accepted by in [facility] [place] Patient also was started on aspirin 324 mg Patient pain responded to morphine initially but again at 3:22 PM she mentioned that the pain came back and I did give her another dose of morphine 4 mg IV No difficulty breathing and the pain is pressure-like Pulse ox is 98% on room air Lab Data Labs: Lab Results 10/30/24 10/30/24 10/30/24 Range/Units 10:47 10:59 12:32 WBC 4.5 (4.0-11.0) 10^3/uL RBC 3.88 L (4.20-5.40) 10^6/uL Hgb 11.7 L (12.0-16.0) g/dL Hct 34.7 L (36.0-48.0) % MCV 89.4 (81.0-99.0) fL MCH 30.2 (26.7-34.0) pg MCHC 33.7 (29.9-35.2) g/dL RDW 13.2 (11.0-15.0) % Plt Count 279 (150-450) 10^3/uL MPV 10.2 (9.5-13.5) fL Neut % (Auto) 49.5 (43.0-75.0) % Lymph % (Auto) 41.0 (20.5-60.0) % [place] % (Auto) 7.7 (1.7-12.0) % Eos % (Auto) 0.9 (0.9-7.0) % Baso % (Auto) 0.9 (0.2-2.0) % Neut # (Auto) 2.3 (1.4-6.5) 10^3/uL Lymph # (Auto) 1.9 (1.2-3.8) 10^3/uL [place] # (Auto) 0.4 (0.3-0.8) 10^3/uL Eos # (Auto) 0.0 (0.0-0.7) 10^3/uL Baso # (Auto) 0.0 (0.0-0.1) 10^3/uL Abs Immat Gran (auto) 0.00 (0.00-0.03) 10^3/uL Imm/Tot Granulo (auto) 0.0 (0.0-0.5) % PT 11.4 (9.0-11.6) sec INR 1.08 APTT 28.6 (22.3-36.2) sec Sodium 142 (136-145) mmol/L Potassium 3.8 (3.5-5.1) mmol/L Chloride 108 H (98-107) mmol/L Carbon Dioxide 24.8 (21.0-32.0) mmol/L Anion Gap 13.0 BUN 4.0 L (7.0-18.0) mg/dL Creatinine 0.65 (0.55-1.02) mg/dL Est GFR ( Amer) >60 (>=60 mL/min/1.73m^2) Est GFR (Non-Af Amer) >60 (>=60 mL/min/1.73m^2) BUN/Creatinine Ratio 6.2 Glucose 78 (74-106) mg/dL Calcium 8.1 L (8.5-10.1) mg/dL Total Bilirubin 0.3 (0.2-1.0) mg/dL AST 28 (15-37) U/L ALT 14 (14-59) U/L Alkaline Phosphatase 62 (46-116) U/L Troponin I High Sens 42.8 390.6 H* (4.0-51.3) pg/mL Total Protein 6.3 L (6.4-8.2) g/dL Albumin 3.3 L (3.4-5.0) g/dL Globulin 3.0 g/dL Albumin/Globulin Ratio 1.1 Serum HCG, Qual Negative (NEGATIVE) POC Glucose 69 L (74-106) mg/dL 10/30/24 Range/Units 14:43 WBC (4.0-11.0) 10^3/uL RBC (4.20-5.40) 10^6/uL Hgb (12.0-16.0) g/dL Hct (36.0-48.0) % MCV (81.0-99.0) fL MCH (26.7-34.0) pg MCHC (29.9-35.2) g/dL RDW (11.0-15.0) % Plt Count (150-450) 10^3/uL MPV (9.5-13.5) fL Neut % (Auto) (43.0-75.0) % Lymph % (Auto) (20.5-60.0) % [place]rie % (Auto) (1.7-12.0) % Eos % (Auto) (0.9-7.0) % Baso % (Auto) (0.2-2.0) % Neut # (Auto) (1.4-6.5) 10^3/uL Lymph # (Auto) (1.2-3.8) 10^3/uL [place]rie # (Auto) (0.3-0.8) 10^3/uL Eos # (Auto) (0.0-0.7) 10^3/uL Baso # (Auto) (0.0-0.1) 10^3/uL Abs Immat Gran (auto) (0.00-0.03) 10^3/uL Imm/Tot Granulo (auto) (0.0-0.5) % PT (9.0-11.6) sec INR APTT (22.3-36.2) sec Sodium (136-145) mmol/L Potassium (3.5-5.1) mmol/L Chloride (98-107) mmol/L Carbon Dioxide (21.0-32.0) mmol/L Anion Gap BUN (7.0-18.0) mg/dL Creatinine (0.55-1.02) mg/dL Est GFR ( Amer) (>=60 mL/min/1.73m^2) Est GFR (Non-Af Amer) (>=60 mL/min/1.73m^2) BUN/Creatinine Ratio Glucose (74-106) mg/dL Calcium (8.5-10.1) mg/dL Total Bilirubin (0.2-1.0) mg/dL AST (15-37) U/L ALT (14-59) U/L Alkaline Phosphatase (46-116) U/L Troponin I High Sens 701.3 H* (4.0-51.3) pg/mL Total Protein (6.4-8.2) g/dL Albumin (3.4-5.0) g/dL Globulin g/dL Albumin/Globulin Ratio Serum HCG, Qual (NEGATIVE) POC Glucose (74-106) mg/dL Discharge Plan Discharge Chief Complaint: Chest Pain Clinical Impression: Non-ST elevation AR (NSTEMI) Patient Disposition: [facility] Time of Disposition Decision: 15:15 Discharge location: [facility] [place] Dr Zaldivar
[2024-10-30] MEDS: HYDROMORPHONE HCL 0.5 MG/0.5 ML SYRINGE IV (10:48)
[2024-10-30] MEDS: FAMOTIDINE/PF 20 MG/2 ML VIAL IV ×2 (10:48→11:43)
[2024-10-30 10:57] LABS: Hematocrit 34.7 % (36.0-48.0); Hemoglobin 11.7 g/dL (12.0-16.0); Immature Granulocytes Abs Auto 0.00 10^3/uL (0.00-0.03); Immature Granulocytes Pct Auto 0.0 % (0.0-0.5); Lymphocytes Absolute Auto 1.9 10^3/uL (1.2-3.8); Mean Corpuscular HGB Conc 33.7 g/dL (29.9-35.2); Mean Corpuscular Hemoglobin 30.2 pg (26.7-34.0); Mean Corpuscular Volume 89.4 fL (81.0-99.0); Platelet Count 279 10^3/uL (150-450); Red Blood Count 3.88 10^6/uL (4.20-5.40); White Blood Count 4.5 10^3/uL (4.0-11.0)
[2024-10-30 11:17] LABS: Alanine Aminotransferase 14 U/L (14-59); Albumin Globulin Ratio 1.1; Albumin Level 3.3 g/dL (3.4-5.0); Alkaline Phosphatase 62 U/L (46-116); Anion Gap 13.0; Aspartate Amino Transferase 28 U/L (15-37); Blood Urea Nitrogen 4.0 mg/dL (7.0-18.0); Calcium 8.1 mg/dL (8.5-10.1); Carbon Dioxide 24.8 mmol/L (21.0-32.0); Chloride 108 mmol/L (98-107); Estimated GFR (African America >60 (>=60 mL/min/1.73m^2); Estimated GFR (Non-African Ame >60 (>=60 mL/min/1.73m^2); Globulin 3.0 g/dL; Glucose 78 mg/dL (74-106); Potassium 3.8 mmol/L (3.5-5.1); Sodium 142 mmol/L (136-145); Total Protein 6.3 g/dL (6.4-8.2)
[2024-10-30] MEDS: KETOROLAC TROMETHAMINE 30 MG/ML VIAL 15 MG IVP (11:43)
[2024-10-30] MEDS: 0.9 % SODIUM CHLORIDE 1,000 ML 500 ML IV (12:49)
--- NOTE | 2024-10-30 12:55 | ECG_ITS ---
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
[2024-10-30] MEDS: MORPHINE SULFATE 4 MG/ML VIAL IV ×2 (13:03→15:32)
[2024-10-30 13:36] LABS: INR 1.08; Partial Thromboplastin Time 28.6 sec (22.3-36.2); Prothrombin Time 11.4 sec (9.0-11.6)
[2024-10-30] MEDS: HEPARIN SODIUM (PORCINE) 5,000 UNIT/ML VIAL 4000 UNIT IV (14:07)
[2024-10-30] MEDS: HEPARIN SODIUM,PORCINE/D5W 25,000 UNIT/500 ML IV.SOLN 16 UNIT IV (14:10)
[2024-10-30] MEDS: ASPIRIN 81 MG TAB.CHEW 324 MG PO (14:58)
--- NOTE | 2024-10-30 15:28 | ECG_ITS ---
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
--- NOTE | 2024-10-30 17:09 | PC.NURSE ---
Patient report given to Angeline at [facility] at this time.
== END 2024-10-30 17:10 | disposition short-term general hospital (02) ==
PROVIDERS: Emergency Provider Emergency Medicine; PCP Family Medicine
DX: I21.4 Non-ST elevation (NSTEMI) myocardial infarction (principal); K31.84 Gastroparesis; Z79.899 Other long term (current) 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; E86.0 Dehydration
CPT/HCPCS: 36415; 36591; 71045; 80053; 84484; 84703; 85025; 85610; 85730; 93005; 96361; 96374; 96375; 96376; 99285; J0780; J1171; J1200; J1644; J1885; J2270; J2405; J3490

== ENCOUNTER 2024-11-14 09:30 | Outpatient (RCR) | payer MEDICAID, SELFPAY ==
[2024-10-17 10:53] VITALS: BP 129/84; PULSE 68; TEMP 36.6; O2SAT 99
[2024-10-17] MEDS: PROCHLORPERAZINE 10 MG/2 ML VIAL IV (11:06)
[2024-10-17] MEDS: DIPHENHYDRAMINE HCL 50 MG/ML VIAL IV (11:06)
[2024-10-18 08:50] VITALS: BP 121/89; PULSE 88; TEMP 36.2; O2SAT 97
[2024-10-18] MEDS: DIPHENHYDRAMINE HCL 50 MG/ML VIAL IV (09:02)
[2024-10-18] MEDS: PROCHLORPERAZINE 10 MG/2 ML VIAL IV (09:02)
[2024-10-18] MEDS: 0.9 % SODIUM CHLORIDE 1,000 ML 1000 ML IV ×2 (09:02→10:02)
[2024-10-19 08:49] VITALS: BP 126/91; PULSE 89; TEMP 36.2; O2SAT 97
[2024-10-19] MEDS: PROCHLORPERAZINE 10 MG/2 ML VIAL IV (09:43)
[2024-10-19] MEDS: DIPHENHYDRAMINE HCL 50 MG/ML VIAL IV (09:43)
[2024-10-20 08:55] VITALS: BP 123/60; PULSE 99; TEMP 36.6; O2SAT 98
[2024-10-20] MEDS: DIPHENHYDRAMINE HCL 50 MG/ML VIAL IV (08:58)
[2024-10-20] MEDS: PROCHLORPERAZINE 10 MG/2 ML VIAL IV (08:58)
[2024-10-22] MEDS: DIPHENHYDRAMINE HCL 50 MG/ML VIAL IV (10:33)
[2024-10-22] MEDS: PROCHLORPERAZINE 10 MG/2 ML VIAL IV (10:33)
[2024-10-22 10:38] VITALS: BP 131/86; PULSE 77; TEMP 36.5; O2SAT 99
[2024-10-23 09:48] VITALS: BP 129/85; PULSE 75; TEMP 35.8; O2SAT 98
[2024-10-23] MEDS: DIPHENHYDRAMINE HCL 50 MG/ML VIAL IV (09:56)
[2024-10-23] MEDS: 0.9 % SODIUM CHLORIDE 1,000 ML 1000 ML IV (09:56)
[2024-10-23] MEDS: PROCHLORPERAZINE 10 MG/2 ML VIAL IV (09:56)
[2024-10-23] MEDS: 0.9 % SODIUM CHLORIDE 1,000 ML 999 ML IV (11:05)
--- NOTE | 2024-10-23 11:05 | PC.NURSE ---
Pt. completes first liter of NS. Requests to order lunch. Menu provided.
[2024-10-24] MEDS: PROCHLORPERAZINE 10 MG/2 ML VIAL IV (08:55)
[2024-10-24] MEDS: DIPHENHYDRAMINE HCL 50 MG/ML VIAL IV (08:55)
[2024-10-24 09:02] VITALS: BP 117/79; PULSE 82; TEMP 36.1; O2SAT 98
[2024-10-25 08:45] VITALS: BP 115/77; PULSE 63; TEMP 36; O2SAT 99
[2024-10-25] MEDS: DIPHENHYDRAMINE HCL 50 MG/ML VIAL IV (08:52)
[2024-10-25] MEDS: PROCHLORPERAZINE 10 MG/2 ML VIAL IV (08:52)
[2024-10-26 10:00] VITALS: BP 153/77; PULSE 81; TEMP 36.7; O2SAT 99
[2024-10-26] MEDS: DIPHENHYDRAMINE HCL 50 MG/ML VIAL IV (10:12)
[2024-10-26] MEDS: PROCHLORPERAZINE 10 MG/2 ML VIAL IV (10:12)
[2024-10-26] MEDS: 0.9 % SODIUM CHLORIDE 1,000 ML 1000 ML IV (10:12)
[2024-10-26] MEDS: 0.9 % SODIUM CHLORIDE 1,000 ML 999 ML IV (11:14)
--- NOTE | 2024-10-26 11:29 | PC.NURSE ---
1100: Pt. orders grilled ham and cheese and veg. soup. Denies c/o.
[2024-10-27 08:47] VITALS: BP 122/83; PULSE 73; TEMP 36; O2SAT 99
[2024-10-27] MEDS: DIPHENHYDRAMINE HCL 50 MG/ML VIAL IV (08:54)
[2024-10-27] MEDS: PROCHLORPERAZINE 10 MG/2 ML VIAL IV (08:54)
[2024-10-29 10:49] VITALS: BP 126/89; PULSE 86; TEMP 37.3
[2024-10-29] MEDS: 0.9 % SODIUM CHLORIDE 1,000 ML 1000 ML IV ×2 (11:03→12:00)
[2024-10-29] MEDS: PROCHLORPERAZINE 10 MG/2 ML VIAL IV (11:04)
[2024-10-29] MEDS: DIPHENHYDRAMINE HCL 50 MG/ML VIAL IV (11:05)
[2024-10-30 09:45] VITALS: BP 123/81; PULSE 77; TEMP 36.6; O2SAT 98
[2024-10-30] MEDS: DIPHENHYDRAMINE HCL 50 MG/ML VIAL IV (09:59)
[2024-10-30] MEDS: 0.9 % SODIUM CHLORIDE 2,000 ML 1000 ML IV (09:59)
[2024-10-30] MEDS: PROCHLORPERAZINE 10 MG/2 ML VIAL IV (09:59)
--- NOTE | 2024-10-30 10:25 | PC.NURSE ---
0945: Pt to [facility] amb for daily anti-emetics and IVF. Seated in recliner. States not feeling good at all over the weekend and extremely nauseated today. Hodges cath in place and without s&s of infection or infiltration. Flushes easily with good blood return. VSS. 0959: IV NS initiated at this time and pt. medicated with Benadryl and Compazine as ordered. Pt. relays having sudden chest pain and nausea. BP 149/101, HR 86, qhd578% IVF wide open. O2 applied 2L n/c. This RN phones ER. Transported pt. to ER via w/c. Report given to ER MD and nurses. Pt. care relinquished.
[2024-11-08 08:56] VITALS: BP 120/79; PULSE 75; TEMP 36.4; O2SAT 96
[2024-11-08] MEDS: PROCHLORPERAZINE 10 MG/2 ML VIAL IV (09:07)
[2024-11-08] MEDS: DIPHENHYDRAMINE HCL 50 MG/ML VIAL IV (09:16)
--- NOTE | 2024-11-08 09:33 | PC.NURSE ---
0900 Dr. Alas notified regarding patient returning for benadryl, compazine and fluids PRN, he verbally approved resuming regimen
[2024-11-14 09:35] VITALS: BP 106/71; PULSE 75; TEMP 36.3; O2SAT 98
[2024-11-14] MEDS: DIPHENHYDRAMINE HCL 50 MG/ML VIAL IV (09:46)
[2024-11-14] MEDS: PROCHLORPERAZINE 10 MG/2 ML VIAL IV (09:46)
[2024-11-14] MEDS: 0.9 % SODIUM CHLORIDE 1,000 ML 1000 ML IV (10:03)
== END 2024-11-14 23:59 | disposition home or self-care (01) ==
LOC: INF 09:30
PROVIDERS: PCP Family Medicine; Visit Provider Family Medicine
DX: E86.0 Dehydration (principal); A41.9 Sepsis, unspecified organism
CPT/HCPCS: 36415; 36591; 87040; 96361; 96374; 96375; J0780; J1200

== ENCOUNTER 2024-11-14 15:54 | Emergency (ER) | payer MEDICAID, SELFPAY ==
--- OUTSIDE RECORDS SUMMARY | 2024-08-15 05:30 | XMS_ITS ---
Author Organization [facility] Address [address] [place] [address] Care Team Providers Care Track Subway Repair Supervisor Name Role Phone Ashley Bryson Primary Care Provider REASON FOR VISIT FILLING Encounters Encounter Location Date Provider Diagnosis [address] [place] [address] 08/15/2024 Ashley Bryson Plan Of Treatment No Information Progress Notes * JUAN KONG MDOB:1990 (34 yo F)Acc No.[id number]:08/15/2024 Patient: Jarrod AlejandroJUAN Salomon Sandra Provider: Carito Bryson DDS :1990 A ge:34 Y S ex:Female Date:08/15/2024 Address:[address] [place], [place] [phone] Subjective: * Chief Complaints: * 1 . FILLING. * Medical History: Objective: * Vitals: Assessment: Plan: * Treatment: * Images: * Electronic signature of Panfilo Bryson DDS on 11/14/2024 at 08:51 AM EDT Sign off status: Pending * Provider: Carito Bryson DDS Date: 08/15/2024 Generated for Hailey jordan/Ari/Chance on: 11/14/2024 08:51 AM EDT
--- OUTSIDE RECORDS SUMMARY | 2024-10-30 18:28 | XMS_ITS | Encounter Summary ---
Author Organization [facility] Address [address] [place] [address] Care Team Providers Care Outreach Worker Name Role Phone Thomas Alas MD Primary Care Provider [phone] Reason for Referral * (Routine) - Pending Review Specialty Diagnoses / Procedures Referred By Contac t Referred To Contact Procedures ECG 12 lead Mauricio Garcia MD [address] [place] [phone] Phone: tel: fax: Referral ID Status Reason Start Date Expiration Date V isits Requested Visits Authorized [id number] Pending Review 11/07/2024 11/07/2025 1 1 * (Emergency) - Pending Review Specialty Diagnoses / Procedures Referred By Contac t Referred To Contact Procedures ECG 12 lead Tomasa Disla MD [address] [place] [id number] Phone: tel: fax: Referral ID Status Reason Start Date Expiration Date V isits Requested Visits Authorized [id number] Pending Review 11/04/2024 11/04/2025 1 1 * (Emergency) - Pending Review Specialty Diagnoses / Procedures Referred By Contac t Referred To Contact Procedures ECG 12 lead Ky Ritter MD [address] [place] [phone] Phone: tel: fax: Referral ID Status Reason Start Date Expiration Date V isits Requested Visits Authorized [id number] Pending Review 11/02/2024 11/02/2025 1 1 * (Routine) - Pending Review Specialty Diagnoses / Procedures Referred By Contac t Referred To Contact Procedures ECG 12 lead Ky Ritter MD [address] [place] [address] Phone: tel: fax: Referral ID Status Reason Start Date Expiration Date V isits Requested Visits Authorized [id number] Pending Review 11/01/2024 11/01/2025 1 1 * (Routine) - Pending Review Specialty Diagnoses / Procedures Referred By Contac t Referred To Contact Procedures ECG 12 lead Ky Ritter MD [address] [place] [address] Phone: tel: fax: Referral ID Status Reason Start Date Expiration Date V isits Requested Visits Authorized [id number] Pending Review 10/31/2024 10/31/2025 1 1 * (Routine) - Pending Review Specialty Diagnoses / Procedures Referred By Contac t Referred To Contact Procedures ECG 12 lead Katie Altamirano MD [address] [facility] [address] [place] [address] Phone: tel: fax: Referral ID Status Reason Start Date Expiration Date V isits Requested Visits Authorized [id number] Pending Review 10/31/2024 10/31/2025 1 1 * (Emergency) - Pending Review Specialty Diagnoses / Procedures Referred By Contac t Referred To Contact Procedures ECG 12 lead Debbie Luna CNP [address] [place] [address] Phone: tel: fax: Referral ID Status Reason Start Date Expiration Date V isits Requested Visits Authorized [id number] Pending Review 10/30/2024 10/30/2025 1 1 Reason for Visit * Auth/Cert (Routine) Specialty Diagnoses / Procedures Referred By Contac t Referred To Contact Diagnoses Chest pain NSTEMI Procedures NO CODED SERVICE Sandeep Casey MD [address] [place] [address] Phone: tel: fax: [facility] [address] [place] [address] Phone: tel: fax: Referral ID Status Reason Start Date Expiration Date Visits Re quested Visits Authorized [id number] 1 1 Encounter Details Date Type Department Care Team (Late st Contact Info) Description 10/30/2024 6:28 PM EDT - 11/07/2024 5:10 PM EDT Hospital Encounter [facility] [address] [facility] [place] [phone] Sandeep Casey MD [address] [place] [phone] Ky Ritter MD [address] [place] [address] Jose Angel Fox MD [address] [place] [address] Mauricio Garcia MD [address] [place] [phone] Tino Gilmore MD [address] [facility] [address] [facility] [place] [phone] Hematoma (Primary Dx); Chest pain; NSTEMI (non-ST elevated myocardial infarction) (CMS/HCC); Spontaneous dissection of coronary artery; Gastroparesis; Gastroesophageal reflux disease without esophagitis [place] [facility] [place] Social History Tobacco Use Types Packs/Day Years Used Date Smoking Tobacco: Never Smokeless Tobacco: Never [facility] Utilities Answer Date Recorded In the past 12 months has th e electric, gas, oil, or water company threatened to shut off services in your home? No 10/30/2024 Humiliation, Afraid, Rape, and Kick questionnair e Answer Date Recorded Within the last year, have y ou been afraid of your partner or ex-partner? No 10/30/2024 Emotionally Abused Not on file 10/30/2024 Physically Abused Not on file 10/30/2024 Sexually Abused Not on file 10/30/2024 Overall Financial Resource Strain (CARDIA) Answe r Date Recorded How hard is it for you to pa y for the very basics like food, housing, medical care, and heating? Not hard at all 10/30/2024 Transportation Answer Date Recorded In the past 12 months, has l ack of transportation kept you from medical appointments or from getting medications? No 10/30/2024 Lack of Transportation (Non-Medical) Not on file 10/30/2024 Housing Stability Vital Sign Answer Eugenio e Recorded In the last 12 months, was t here a time when you were not able to pay the mortgage or rent on time? No 10/30/2024 In the past 12 months, how m any times have you moved where you were living? 0 10/30/2024 At any time in the past 12 m [facility], were you homeless or living in a [place] [facility] facility (including now)? No 10/30/2024 Hunger Vital Sign Answer Date Recorded Within the past 12 months, y ou worried that your food would run out before you got the money to buy more. Never true 10/31/19 25 Ran Out of Food in the Last Year Not on file 10/30/2024 Comments Unknown Sex and Gender Information Value Date Recorded Sex Assigned at Female 08/17/2024 3:45 PM EDT Legal Sex Female 12:07 AM EDT Gender Identity Female 08/17/2024 3:45 PM EDT Sexual Orientation Heterosexual or Straight 04/2024 3:45 PM EDT documented as of this encounter Last Filed Vital Signs Vital Sign Reading Time Taken Comments Blood Pressure 121/61 11/07/2024 4:09 PM EDT Pulse 79 11/07/2024 4:09 PM EDT Temperature 36.4 C (97.5 F) 11/07/2024 4:09 PM EDT Respiratory Rate 12 11/07/2024 4:09 PM EDT Oxygen Saturation 100% 11/07/2024 4:09 PM EDT Inhaled Oxygen Concentration - - Weight 83.2 kg (183 lb 6.4 oz) 11/07/2024 5:09 A M EDT Height 167.6 cm (5' 5.98 ) 10/31/2024 3:20 AM ED T Body Mass Index 29.62 10/31/2024 3:20 AM EDT documented in this encounter Functional Status * Qureshi Fall Risk Question Answer Date of Assessment Author History of Falling, Immediat e or Within 3 Months 0 11/07/2024 7:21 AM EDT Patricia Butt RN Secondary Diagnosis 15 11/07/2024 7:21 AM ED T Patricia Butt RN Ambulatory Aid 0 11/07/2024 7:21 AM EDT Car rPatricia RN Intravenous Therapy/Heparin Lock 20 11/08/19 7:21 AM EDT Patricia Butt RN Gait/Transferring 10 11/07/2024 7:21 AM EDT Patricia Butt RN Mental Status 0 11/07/2024 7:21 AM EDT Patricia Butt RN Qureshi Fall Risk Score 45 11/07/2024 7:21 AM EDT Patricia Butt RN * Cyrus Scale Question Answer Date of Assessment Author Cyrus No Risk Interventions Continue to assess patient according to level of care 11/06/2024 8:08 PM EDT Christine Baker RN Braden Mild Interventions Off loaded ank les and feet;3 or less layers under the patient (i.e sheets, brief, taps, etc);Evaluate nutritional status 11/06/2024 8:08 PM EDT Christine Baker RN Sensory Perceptions 4 11/07/2024 7 :21 AM EDT Patricia Butt RN Moisture 4 11/07/2024 7:21 AM EDT Patricia Butt RN Activity 3 11/07/2024 7:21 AM EDT Patricia Butt RN Mobility 4 11/07/2024 7:21 AM EDT Patricia Butt RN Nutrition 3 11/07/2024 7:21 AM EDT Patricia Butt RN Friction and Shear 3 11/07/2024 7 :21 AM EDT Patricia Butt RN Cyrus Scale Score 21 11/07/2024 7: 21 AM EDT Patricia Butt RN * Patient's Stated Pain Goal Answer Date of Assessment Author No pain 11/07/2024 2:49 PM EDT Fatuma Butt RN * [place] Fall Risk Interventions Question Answer Date of Assessment Author [place] Fall Risk Interventions Complete 11/06/2024 8:08 PM EDT Yunior Baker RN * Patient Requests Lesser Strength Medication Answer Date of Assessment Author Patient Request for Lesser Medication 11/01/2024 8:04 PM EDT Fern Pierce RN * Pain Assessment Timer Question Answer Date of Assessment Author Restart Pain Assessment Timer Yes 11/07/2024 3:27 PM EDT aPtricia Butt RN * Sepsis Model Scores Question Answer Date of Assessment Author Early Detection of Sepsis Score 0.11 5:00 PM EDT Delano Guzman * Pain Assessment Question Answer Date of Assessment Author Pain Location Groin 11/06/2024 8:08 PM EDT Christine Baker RN Pain Orientation Right 11/06/2024 3:18 PM EDT Mateusz Keller, SUNITA Pain Interventions Emotional support;Environmental changes 11/07/2024 7:21 AM EDT Patricia Butt RN Pain Radiating Towards righ 11:14 PM EDT Fern Snider RN Pain Descriptors Aching;Discomfort 11/05/2024 5: 39 PM EDT Joanna French RN Pain Onset Ongoing 11/05/2024 5:39 PM EDT Joanna French RN Pain Frequency Constant/continuous 11/05/2024 5 :39 PM EDT Joanna French RN Response to Interventions Slight improvement 3:27 PM EDT Patricia Butt RN Effect of Pain on Daily Activities decreased mobility 11/03/2024 12:00 PM EDT Sabina Bray RN Pain Type Chronic pain 11/07/2024 7:21 AM EDT Patircia Butt RN Clinical Progression Gradually improving 025 7:21 AM EDT Patricia Butt RN Pain Score 5 - Moderate pain 11/07/2024 3:2 7 PM EDT Patricia Butt RN Patient Behaviors None 11/07/2024 7:2 1 AM EDT Patricia Butt RN Pain Assessment 0-10 11/07/2024 7:21 AM EDT Patricia Butt RN * Audit Alcohol Screening Question Answer Date of Assessment Author How often do you have a drin k containing alcohol? 0 10/30/2024 7:53 PM EDT Maribel Merchant R N How many standard drinks con taining alcohol do you have on a typical day? No 10/30/2024 7:53 PM EDT Maribel Merchant R N How often do you have six or more drinks on one occasion? 0 10/30/2024 7:53 PM EDT Jalil Merchant RN Audit-C Score 0 10/30/2024 7:53 PM EDT Maribel Merchant RN * MEWS SCORE Question Answer Date of Assessment Author MEWS SCORE 0 11/06/2024 1:01 PM EDT Delano Chambers * Question Answer Date of Assessment Author BP 121/61 11/07/2024 4:09 PM EDT Patricia Butt RN Pulse 79 11/07/2024 4:09 PM EDT Patricia Butt RN Heart Rate Source Monitor 11/07/2024 4:09 PM EDT Patricia Butt RN Patient Position Sitting 11/07/2024 4:09 PM EDT Patricia Beckham RN * Deterioration Index Score Question Answer Date of Assessment Author Deterioration Index Score 24.72 11/07/2024 5:02 PM EDT Delano Guzman * Head, Ears, Eyes, Nose, and Throat (HEENT) Question Answer Date of Assessment Author Head, Ears, Eyes, Nose, and Throat (WDL) X 11/07/2024 7:21 AM EDT Patrciia Butt R N R Eye Mildly impaired vision;Corrective lenses 11/07/2024 7:21 AM EDT Patricia Butt RN L Eye Mildly impaired vision;Corrective lenses 11/07/2024 7:21 AM EDT Patricia Butt RN R Ear Intact 11/07/2024 7:21 AM EDT Patricia Butt RN L Ear Intact 11/07/2024 7:21 AM EDT Patricia Butt RN Nose Intact 11/07/2024 7:21 AM EDT Patricia Butt RN Throat Intact 11/07/2024 7:21 AM EDT Patricia Butt RN Tongue Geddes;Moist 11/07/2024 7:21 AM EDT Patricia Butt RN Mucous Membrane(s) Moist;Geddes;Intact 11/07/2024 7:21 A M Patricia Malone RN Teeth Intact 11/07/2024 7:21 AM EDT Patricia Butt RN Head and Face Symmetrical 11/07/2024 7:21 AM EDT Patricia Butt RN Neck Symmetrical 11/07/2024 7:21 AM EDT Patricia Butt RN Lips Dry;Moist;[place]ed[place] 11/07/2024 7:21 AM EDT Car rPatricia RN * Question Answer Date of Assessment Author MAP (mmHg) 73 11/07/2024 4:09 PM Patricia Malone RN * Short Portable Mental Status Question Answer Date of Assessment Author What are the date, month, year? 0 7:21 AM Patricia Malone RN What is the day of the week? 0 11/07/2024 7 :21 AM EDT Patricia Butt RN What is the name of this place? 0 7:21 AM EDT Patricia Butt RN What is your phone number? 0 11/07/2024 7:2 1 AM EDPatricia Miranda RN How old are you? 0 11/07/2024 7:21 AM EDT Patricia Beckham RN When were you born? 0 11/07/2024 7:21 AM ED T Patricia Butt RN Who is the current president? 0 11/07/2024 7:21 AM EDT Patricia Butt RN Who was the president before him? 1 11/07/2024 7:21 AM EDT Patricia Butt RN What was your mother's sam bledsoe name? 0 11/06/2024 8:08 PM EDT Yunior Baker RN Can you count backward from 20 by 3s? 0 11/06/2024 8:08 PM EDT Yunior Baker RN Short Portable Mental Score 0 11/06/2024 8: 08 PM EDT Christine Baker RN * Fall Risk Level Question Answer Date of Assessment Author Mobility zone Moderate (Yellow Zone) 11/07/2024 7:21 AM EDT Patricia Butt RN Qureshi fall risk zone Moderate (Yellow Zone) 11/07/2024 7:21 AM EDT Patricia Butt RN Mental status questionaire zone Low (Green Zone) 11/07/2024 7:21 AM EDT Patricia Butt RN * General Assessment Question Answer Date of Assessment Author Hearing Intact 11/06/2024 3:18 PM EDT Mateusz Power PT Hand Dominance Right 11/06/2024 3:18 PM EDT Mateusz Vasquez, PT * Skin Assessment Sign off Question Answer Date of Assessment Author Dual Sign-off - Admission/Transfer Ashleigh PRICE 11/06/2024 1:30 PM EDT Patricia Butt RN Dual Sign-off - Shift Fang PRICE 11/06/2024 8:00 AM EDT Fang Oreilly RN Any new wounds identified on admission/transfer? No 11/06/2024 1:30 PM EDT Patricia Butt RN Provider notified of new wound No 11/06/2024 1:30 PM EDT Patricia Butt RN * Question Answer Date of Assessment Author Warm [place] Applied 11/02/2024 10:14 PM EDT Fern Henley RN * 6 Clicks (Mobility) Question Answer Date of Assessment Author Help from another person cli mbing 3-5 steps with a railing 3 11/06/2024 3:18 PM EDT Mateusz Keller, P T Help from another person tur jose from your back to your side while in a flat bed without using bedrails 4 11/06/2024 3:18 PM EDT Mateusz Power, PT Help from another person mov ing from lying on your back to sitting on the side of a flat bed without using bedrails 4 11/06/2024 3:18 PM EDT Mateusz Keller, PT Help from another person mov ing to and from a bed to a chair (including a wheelchair) 4 11/06/2024 3:18 PM EDT Mateusz Keller, PT Help from another person sta nding up from a chair using your arms (e.g. wheelchair or bedside chair) 4 11/06/2024 3:18 PM EDT Mateusz Keller, PT Help from another person to walk in hospital room 3 11/06/2024 3:18 PM EDT Mateusz Keller, PT Mobility 6 Clicks T-Score 22 11/06/2024 3:18 PM EDT Mateusz Keller, PT * Question Answer Date of Assessment Author SpO2 100 11/07/2024 4:09 PM EDT Patricia Butt RN * Question Answer Date of Assessment Author Ectopy Frequency Rare 11/04/2024 4:00 PM EDT Igor Espinosa RN * Question Answer Date of Assessment Author Pulse rate from Plethysmogram (bpm) 80 11/07 4:09 PM EDT Patricia Butt RN * Question Answer Date of Assessment Author Level of Consciousness Alert 7:21 AM EDT Patricia Butt RN Orientation Level Oriented X4 11/07/2024 7:2 1 AM EDT Patricia Butt RN Cognition Follows commands 11/07/2024 7:21 AM EDT Patricia Butt RN Speech Clear 11/07/2024 7:21 AM EDT Patricia Butt RN L Pupil Reaction Brisk 11/07/2024 7:21 AM EDT Patricia Butt RN L Pupil Size (mm) 4 11/07/2024 7:2 1 AM EDT Patricia Butt RN R Pupil Reaction Brisk 11/07/2024 7:21 AM EDT Patricia Butt RN R Pupil Size (mm) 4 11/07/2024 7:2 1 AM EDT Patricia Butt RN LUE Motor Response Responds to commands 11/07/19 12:00 PM EDT Fang Oreilly RN LUE Sensation Full sensation 11/06/2024 12:00 PM EDT Fang Oreilly RN LLE Motor Response Responds to commands 11/07/19 12:00 PM JUNT Fang Oreilly RN LLE Sensation Full sensation 11/06/2024 12:00 PM EDT Fang Oreilly RN RUE Motor Response Responds to commands 11/07/19 12:00 PM JUNT Fang Oreilly RN RUE Sensation Full sensation 11/06/2024 12:00 PM EDT Fang Oreilly RN RLE Motor Response Responds to commands 11/07/19 12:00 PM JUNT Fang Oreilly RN RLE Sensation Pain 11/06/2024 12:00 PM EDT Fang Oreilly RN L Corneal Reflex Intact 11/05/2024 4:00 PM EDT Joanna French, DEE Cough Reflex Present 11/05/2024 4:00 PM EDT Joanna French, DEE Gag Reflex Present 11/05/2024 4:00 PM EDT Joanna French, DEE R Corneal Reflex Intact 11/05/2024 4:00 PM EDT Joanna French RN Swallow Able to swallow gina ds and liquids without difficulty 11/07/2024 7:21 AM EDT Patricia Butt RN R Hand Grasp Strong 11/07/2024 7:21 AM EDT Patricia Butt RN L Hand Grasp Strong 11/07/2024 7:21 AM EDT Patricia Butt RN R Foot Dorsiflexion Moderate 11/07/2024 7 :21 AM EDT Patricia Butt RN L Foot Dorsiflexion Moderate 11/07/2024 7 :21 AM EDT Patricia Butt RN R Foot Plantar Flexion Moderate 7:21 AM EDT Patricia Butt RN L Foot Plantar Flexion Moderate 7:21 AM EDT Patricia Butt RN R Pupil Shape Round 11/07/2024 7:21 AM EDT Patricia Butt RN L Pupil Shape Round 11/07/2024 7:21 AM EDT Patricia Butt RN Neuro Symptoms None 11/07/2024 7:21 AM EDT Patricia Butt RN Relieved by Rest 11/04/2024 4:00 PM EDT Igor Colón RN RUE Motor Strength Normal power 11/06/2024 12 :00 PM Fang Martinez RN LUE Motor Strength Normal power 11/06/2024 12 :00 PM JUNT Fang Oreilly RN RLE Motor Strength Normal power 11/06/2024 12 :00 PM JUNT Fang Oreilly RN LLE Motor Strength Normal power 11/06/2024 12 :00 PM JUNT Fang Oreilly RN Pupil Assessment Yes 11/07/2024 7:21 AM EDT Patricia Butt RN Hand Grasp/Motor Function/Sensation Assessment Grasp;Dorsiflexion;Lacey ntar flexion 11/07/2024 7:21 AM EDT Patricia Butt RN Facial Symmetry Symmetrical 11/07/2024 7:21 AM EDT Patricia Butt RN * Question Answer Date of Assessment Author Bilateral Breath Sounds Clear;Diminished 11/07/2024 7: 21 AM JUNT Patricia Butt RN R Lower Posterior (R Basilar) Diminished 11/06/2024 12:00 PM JUNT Fang Oreilly RN L Lower Posterior (L Basilar) Diminished 11/06/2024 12:00 PM JUNT Fang Oreilly RN Respiratory Pattern Normal 11/07/2024 7:21 AM ED T Patricia Butt RN Chest Assessment Chest expansion symmetrical 11/07/2024 7:21 AM EDT Patricia Butt RN Cough None 11/07/2024 7:21 AM JUNT Patricia Butt RN Respiratory Effort Unlabored 11/07/2024 7:21 AM EDT Patricia Butt RN Respiratory Depth/Rhythm Shallow 11/07/2024 7:21 AM EDT Patricia Butt RN Lobe Specific Breath Sounds Posterior left lower lobe;Posterior right lower lobe 11/06/2024 12:00 PM JUNT Fang Oreilly RN * Question Answer Date of Assessment Author Ectopy Premature ventricula r contractions 11/06/2024 12:00 PM Fang Martinez RN Cardiac Regularity Regular 11/07/2024 7:21 AM Patricia Malone RN Quality Assurance Analyst Status On 11/07/2024 7:21 AM JUNT Patricia Butt RN Telemetry Box Number [id number] 11/07/2024 7:21 AM E DT Patricia Butt RN Jugular Venous Distention (JVD) No 11/07/2024 7:21 AM EDT Patricia Butt RN Cardiac Symptoms None 11/07/2024 7:21 AM EDT Patricia Beckham RN Heart Sounds S1, S2 11/07/2024 7:21 AM EDT Patricia Butt RN * Gastrointestinal Question Answer Date of Assessment [place] [id number] 11/06/2024 8:00 AM EDT Fang Oreilly RN Passing Flatus Yes 11/07/2024 7:21 AM EDT Patricia Butt RN Abdominal Tenderness Guarding;Soft 11/07/2024 7:21 AM EDT Patricia Butt RN Bowel Sounds (All Quadrants) Hypoactive 11/07/2024 7:21 AM EDT Patricia Butt RN Gastrointestinal (WDL) X 7:21 AM EDT Patricia Butt RN Abdomen Inspection Soft;Rounded;Nondist e nded 11/07/2024 7:21 AM EDT Patricia Butt RN Gastrointestinal Symptoms Nausea 2024 7:21 AM EDT Patricia Butt RN Nausea Precipitating Factors Medication 11/07/2024 7:21 AM EDT Patricia Butt RN Constipation Precipitating Factors Disease related 11/07/2024 7:21 AM EDT Patricia Butt RN Bowel Incontinence No 11/06/2024 8: 00 AM EDT Fang Oreilly RN Bowel Sounds All quadrants 11/07/2024 7:21 AM EDT Patricia Butt RN * Peripheral Vascular Question Answer Date of Assessment Author Peripheral Vascular (WDL) WDL 11/07/2024 7:21 AM EDT Patricia Butt RN Capillary Refill Less than/equal to 2 seconds (All extremities) 11/07/2024 7:21 AM EDT Patricia Butt RN Pulses Right radial;Left radial;Left posterior tibial;Right posterior tibial;Right pedal;Left pedal 11/07/2024 7:21 AM EDT Patricia Butt RN Cyanosis None 11/07/2024 7:21 AM EDT Patricia Butt RN Edema Right lower extremity;Left lower extremity 11/06/2024 12:00 PM EDT Fang Oreilly RN Peripheral Vascular Additional Assessments Right upper extremity;Right lower extremity;Left upper extremity;Left lower extremity 11/07/2024 7:21 AM EDT Patricia Butt RN * RUE Neurovascular Assessment Question Answer Date of Assessment Author RUE Capillary Refill Less than/equal to 2 seconds 11/07/2024 7:21 AM EDT Patricia Butt RN RUE Color Appropriate for ethnicity 11/07/2024 7:21 AM EDT Patricia Butt RN RUE Temperature/Moisture Warm;Dry 11/07/2024 7:21 AM EDT Patricia Butt RN Right Radial Pulse +2 11/07/2024 7:21 AM EDT Patricia Butt RN * LUE Neurovascular Assessment Question Answer Date of Assessment Author LUE Edema Non-pitting 11/05/2024 4:00 PM EDT Joanna Ennis RN LULesia Capillary Refill Less than/equal to 2 seconds 11/07/2024 7:21 AM EDT Patricia Butt RN LUE Color Appropriate for ethnicity 11/07/2024 7:21 AM EDT Patricia Butt RN LULesia Temperature/Moisture Warm;Dry 11/07/2024 7:21 AM EDT Patricia Butt RN Left Radial Pulse +2 11/07/2024 7:21 AM EDT Patricia Butt RN * RLLesia Neurovascular Assessment Question Answer Date of Assessment Author RLE Edema Non-pitting 11/06/2024 12:00 PM EDT Fang Oreilly RN RLE Capillary Refill Less than/equal to 2 seconds 11/07/2024 12:00 PM EDT Patricia Butt RN RLE Color Appropriate for ethnicity 11/07/2024 7:21 AM EDT Patricia Butt RN RLLesia Temperature/Moisture Warm;Dry 11/07/2024 7:21 AM EDT Patricia Butt RN Right Femoral Pulse +1 11/06/2024 8:00 PM ED T Christine Baker RN Right Posterior Tibial Pulse +1 11/07/2024 7:21 AM EDT Patricia Butt RN Right Pedal Pulse +2 11/07/2024 7:21 AM EDT Patricia Butt RN RLE Varicose Veins Present No 11/07/2024 7:21 AM EDT Patricia Butt RN RLE DVT Prophylaxis Sequential compressi on device 11/07/2024 7:21 AM EDT Patricia Butt RN * LLE Neurovascular Assessment Question Answer Date of Assessment Author LLE Edema Non-pitting 11/06/2024 12:00 PM EDT Fang Oreilly RN LLE Capillary Refill Less than/equal to 2 seconds 11/07/2024 7:21 AM EDT Patricia Butt RN LLE Color Appropriate for ethnicity 11/07/2024 7:21 AM EDT Patricia Butt RN LLE Temperature/Moisture Warm;Dry 11/07/2024 7:21 AM EDT Patricia Butt RN Left Posterior Tibial Pulse +1 11/07/2024 7:21 AM EDT Patricia Butt RN Left Pedal Pulse +2 11/07/2024 7:21 AM EDT C Patricia tom RN LLLesia Varicose Veins Present No 11/07/2024 7:21 AM EDT Patricia Butt RN LLLesia DVT Prophylaxis Sequential compressi on device 11/07/2024 7:21 AM EDT Patricia Butt RN * Musculoskeletal Question Answer Date of Assessment Author RUE Full movement 11/07/2024 7:21 AM EDT Patricia Butt RN RLE Limited movement 11/07/2024 7:21 AM EDT Patricia Beckham RN LUE Full movement 11/07/2024 7:21 AM EDT Patricia Butt RN LLE Full movement 11/07/2024 7:21 AM EDT Patricia Butt RN Musculoskeletal (WDL) X 11/07/2024 7:21 AM EDT Patricia Butt RN * Psychosocial Question Answer Date of Assessment Author Patient Behaviors/Mood Calm 11/07/2024 7:21 AM EDT Patricia Butt RN Needs Expressed Physical 11/07/2024 7:21 AM EDT Ca Patricia cutler RN Psychosocial (WDL) WDL 11/07/2024 7:21 AM EDT Patricia Butt RN Ability to Express Feelings Able to express 11/07/2024 7:21 AM EDT Patricia Butt RN Ability to Express Needs Able to express 11/07/2024 7: 21 AM EDT Patricia Butt RN Ability to Express Thoughts Able to express 11/07/2024 7:21 AM EDT Patricia Butt RN Ability to Understand Others Understands 11/07/2024 7 :21 AM EDT Patricia Butt RN * Qureshi Fall Risk Question Answer Date of Assessment Author History of Falling, Immediat e or Within 3 Months 0 11/07/2024 7:21 AM EDT Patricia Butt RN Secondary Diagnosis 15 11/07/2024 7:21 AM ED T Patricia Butt RN Ambulatory Aid 0 11/07/2024 7:21 AM EDT Car rPatricia RN Intravenous Therapy/Heparin Lock 20 11/08/19 7:21 AM EDT Patricia Butt RN Gait/Transferring 10 11/07/2024 7:21 AM EDT Patricia Butt RN Mental Status 0 11/07/2024 7:21 AM EDT Patricia Butt RN Qureshi Fall Risk Score 45 11/07/2024 7:21 AM EDT Patricia Butt RN * Cyrus Scale Question Answer Date of Assessment Author Cyrus No Risk Interventions Continue to assess patient according to level of care 11/06/2024 8:08 PM EDT Christine Baker RN Braden Mild Interventions Off loaded ank les and feet;3 or less layers under the patient (i.e sheets, brief, taps, etc);Evaluate nutritional status 11/06/2024 8:08 PM EDT Christine Baker RN Sensory Perceptions 4 11/07/2024 7 :21 AM EDT Patricia Butt RN Moisture 4 11/07/2024 7:21 AM EDT Patricia Butt RN Activity 3 11/07/2024 7:21 AM EDT Patricia Butt RN Mobility 4 11/07/2024 7:21 AM EDT Patricia Butt RN Nutrition 3 11/07/2024 7:21 AM EDT Patricia Butt RN Friction and Shear 3 11/07/2024 7: 21 AM EDT Patricia Butt RN Cyrus Scale Score 21 11/07/2024 7: 21 AM EDT Patricia Butt RN * Respiratory Question Answer Date of Assessment Author Respiratory (WDL) WDL 11/02/2024 11:28 PM EDT Fern Snider RN * Charting Type Question Answer Date of Assessment Author Charting Type Shift assessment 11/07/2024 7:21 AM EDT Patricia Butt RN * RLE Assessment Question Answer Date of Assessment Author RLE Assessment WFL 11/06/2024 3:18 PM EDT Mateusz Vasquez, PT * LLE Assessment Question Answer Date of Assessment Author LLE Assessment WFL 11/06/2024 3:18 PM EDT Mateusz Vasquez, PT * Cognition Question Answer Date of Assessment Author Overall Cognitive Status WFL 11/06/2024 3:18 PM EDT Mateusz Keller, PT Arousal/Alertness Appropriate response s to stimuli 11/06/2024 3:18 PM EDT Mateusz Keller, PT Following Commands Follows all commands and directions without difficulty 11/06/2024 3:18 PM EDT Mateusz Keller, PT Safety Judgment Good awareness of safety precautions 11/06/2024 3:18 PM EDT Mateusz Keller, PT * Sensation Question Answer Date of Assessment Author Light Touch Partial deficits in the RLE 11/06/2024 3: 18 PM EDT Mateusz Keller, PT * Vision - Basic Assessment Question Answer Date of Assessment Author Current Vision No visual deficits 11/06/2024 3:18 PM E DT Mateusz Keller, PT * Patient's Stated Pain Goal Answer Date of Assessment Author No pain 11/07/2024 2:49 PM EDT Fatuma Butt RN * Cultural Requests During Hospitalization Answer Date of Assessment Author na 11/04/2024 5:00 AM EDT Juan José Leslie RN * Spiritual Requests During Hospitalization Answer Date of Assessment Author judaism 11/04/2024 5:00 AM EDT Juan José Leslie RN * Repositioned Answer Date of Assessment Author Up in chair;Pillow support;Semi Mathew's 025 4:00 PM EDT Patricia Butt RN * Genitourinary Question Answer Date of Assessment Author Female Genitalia Intact 11/07/2024 7:21 AM EDT Patricia Beckham RN Genitourinary (WDL) X 11/07/2024 7:21 AM ED T Patricia Butt RN Genitourinary Symptoms Inability to urinate 11/07/2024 7:21 AM EDT Patricia Butt RN Suprapubic Tenderness No 11/07/2024 7:21 AM EDT Patricia Butt RN * Patient Monitoring Question Answer Date of Assessment Author Frequency of Checks Twice per hour, standard 7:21 AM EDT Particia Butt RN * Prior Function Question Answer Date of Assessment Author Prior Functional Mobility Independent without device 11/06/2024 3:18 PM EDT Mateusz Keller, PT Level of [place] Independent with A DLs and functional transfers;Independent with homemaking with ambulation 11/06/2024 3:18 PM EDT Mateusz Keller, PT ADL Assistance Independent 11/06/2024 3:18 PM EDT Mateusz Keller, PT Homemaking Assistance Independent 11/06/2024 3:18 PM EDT Mateusz Keller, PT * Activity Tolerance Question Answer Date of Assessment Author Endurance Stage III 11/06/2024 3:18 PM EDT Mateusz Power, PT * RUE Assessment Question Answer Date of Assessment Author RUE Assessment [facility] 11/06/2024 3:18 PM EDT Mateusz Vasquez, PT * LUE Assessment Question Answer Date of Assessment Author LUE Assessment [facility] 11/06/2024 3:18 PM EDT Mateusz Vasquez, PT * Precautions Question Answer Date of Assessment Author Medical Precautions telemetry;costello 11/06/2024 3:18 PM EDT Mateusz Keller, PT * Plan Question Answer Date of Assessment Author PT Plan No skilled PT 11/06/2024 3:18 PM EDT Mateusz Keller, PT Equipment Recommended none 11/06/2024 3:18 PM EDT Mateusz Keller, PT No Skilled PT No acute PT goals identified 11/06/2024 3:18 PM EDT Mateusz Keller, PT PT Frequency One time visit 11/06/2024 3:18 PM EDT Mateusz Keller, PT PT - Discharge Recommendations Placed Yes 11/06/2024 3:18 PM EDT Mateusz Keller, PT PT Discharge Recommendations Patient is able to return to prior living environment 11/06/2024 3:18 PM EDT Mateusz Keller, PT * Safe Environment Question Answer Date of Assessment Author Chair Alarms Off 11/07/2024 7:21 AM EDT Patricia Butt RN Arm Bands On ID;Allergies;Blood bank 11/07/2024 7:21 AM EDT Patricia Butt RN Side Rails/Bed Safety 2/4 11/07/2024 7:21 AM EDT Patricia Butt RN Bed Alarms Off 11/07/2024 7:21 AM EDT Patricia Butt RN The Patient's Environment is Safe Yes 11/07/2024 7:21 AM EDT Patricia Butt RN * Mobility Question Answer Date of Assessment Author Resting chair 11/07/2024 4:00 PM EDT Patricia Butt RN Activity Performed Chair 11/07/2024 4: 00 PM EDT Patricia Butt RN Distance Ambulated (ft) 3 11/07/19 8:08 PM EDT Christine Baker RN Ambulation Response Tolerated well 11/07/2024 7 :21 AM EDT Patricia Butt RN Level of Assistance Standby assist, set- up cues, supervision of patient - no hands on 11/07/2024 7:21 AM Patricia Malone RN Head of Bed Elevated Self regulated 11/07/2024 4:00 PM JUNT Patricia Butt RN Heels/Feet Footrest of chair elevated 11/07/2024 7:21 AM EDT Patricia Butt RN Range of Motion Active;All extremities 7:21 AM Patricia Malone RN Anti-Embolism Devices Bilateral;Sequenti al compression devices, below knee 11/07/2024 7:21 AM Patricia Malone RN Anti-Embolism Intervention Off 11/07/2024 7:21 AM JUNT Patricia Butt RN Patient's mobility zone Zone 5 11/08/19 7:21 AM JUNT Patricia Butt RN Positioning Frequency Able to turn self 11/08/19 4:00 PM EDT Patricia Butt RN * Hygiene Question Answer Date of Assessment Author Linen change Total linen change 11/06/2024 8:00 AM JUNT Fang Oreilly RN Skin Care Foam skin cleanser 11/07/2024 7:21 AM Patricia Malone RN Hygiene Costello care 11/07/2024 8:00 AM EDT Patricia Butt RN Oral Care Per self 11/07/2024 7:21 AM Patricia Malone RN Level of Assistance Minimal assist 11/07/2024 7:21 AM EDT Patricia Butt RN Is Patient Total Care? No 11/07/2024 7:21 AM Patricia Malone RN Incontinence Protective Devices Absorbent pad 11/07/2024 7:21 AM Patricia Malone RN CHG (Chlorhexidine Gluconate) Hygiene Wipes 11/07/2024 8:00 AM EDT Patricia Butt RN * Precautions Question Answer Date of Assessment Author Precautions Bleeding;Fall 11/07/2024 7:21 AM EDPatricia Miranda RN * Family/Significant Other Communication Question Answer Date of Assessment Author Family Communication Comments family 11/05/2024 3:10 PM Joanna Motta RN Family/Significant Other Update Visiting 3:10 PM Joanna Motta RN * Comfort and Environment Interventions Question Answer Date of Assessment Author Special Mattress Low air loss and alternating pressure relief 11/05/2024 8:00 AM Joanna Motta RN Comfort Repositioned 11/07/2024 7:21 AM Patricia Malone RN Additional Comfort/Environmental Interventions Special mattress;Extremity elevated;TAPS 11/05/2024 8:00 AM Joanna Motta RN * Safety Equipment at Bedside Question Answer Date of Assessment Author Safety Equipment at Bedside None 11/07/2024 7: 21 AM Patricia Malone RN * ADL Screening Question Answer Date of Assessment Author Do you snore or wake up gasp ing for air? No 10/30/2024 7:51 PM Maribel Cheng R N Can you bring in your CPAP/BiPAP from home? N/A 10/30/2024 7:51 PM Maribel Cheng RN Patient's Vision Adequate to Safely Complete Daily Activities Yes 10/30/2024 7:51 PM Maribel Cheng R N Patient's Judgment Adequate to Safely Complete Daily Activities Yes 10/30/2024 7:51 PM Maribel Cheng R N Patient's Memory Adequate to Safely Complete Daily Activities Yes 10/30/2024 7:51 PM Maribel Cheng R N Patient Able to Express Needs/Desires Yes 10/30/2024 7:51 PM Maribel Cheng R N Dressing Independent 10/30/2024 7:51 PM Maribel Cheng RN Grooming Independent 10/30/2024 7:51 PM Maribel Cheng RN Feeding Independent 10/30/2024 7:51 PM Maribel Cheng RN Bathing Independent 10/30/2024 7:51 PM Maribel Cheng RN Toileting Independent 10/30/2024 7:51 PM Maribel Cheng RN In/Out Bed Independent 10/30/2024 7:51 PM Maribel Cheng RN Walks in Home Independent 10/30/2024 7:51 PM Maribel Cheng RN Weakness of Legs None 10/30/2024 7:51 PM JUNT Maribel Harley RN Weakness of Arms/Hands None 10/30/2024 7:51 PM Maribel Cheng RN Hearing - Right Ear Functional 10/30/2024 7:51 PM ED T Maribel Merchant RN Hearing - Left Ear Functional 10/30/2024 7:51 PM Maribel Cheng RN * Consults Question Answer Date of Assessment Author Spiritual Care Consult Needed No 10/30/2024 7:53 PM Maribel Cheng RN Social Services Consult Needed Yes (Comment) 10/30/2024 7:53 PM Maribel Cheng R N Palliative Care Consult Needed No 10/30/2024 7:53 PM Maribel Cheng R N * Therapy Consults Question Answer Date of Assessment Author PT Evaluation Needed 2 10/30/2024 7:51 PM E Maribel Song RN OT Evaluation Needed 2 10/30/2024 7:51 PM E Maribel Song RN MEDICAL RECORD CODER Evaluation Needed 2 10/30/2024 7:51 PM Maribel Cheng RN * Assistive Devices Question Answer Date of Assessment Author Assistive Devices Eyeglasses 10/30/2024 7:51 PM Maribel Cheng RN * Provider Notification Question Answer Date of Assessment Author Provider Role Attending physician 11/07/2024 6 :40 AM EDChristine Hernandez, RN Communication Comments writter reached o ut to cardiology to see if they would like pt verapamil to be given since pt diastolic has been been running in the 40s overnight last bp was 114/49 provider asked what was bp when pt last recived medication informed them it was 117/51, provider said to give it. 11/07/2024 6:40 AM EDT Christine Baker, DEE Provider Name Jose Juan Ignacio 11/07/2024 6:40 AM EDT Christine Baker RN Method of Communication Call 11/08/19 6:40 AM EDT Christine Baker RN Reason for Communication Medication concern 10/17 6:40 AM EDT Christine Baker RN Response No new orders 11/07/2024 6:40 AM EDT Christine Baker RN Notification Time [id number] 11/07/2024 6:4 0 AM EDT Christine Baker RN * [place] Fall Risk Interventions Question Answer Date of Assessment Author [place] Fall Risk Interventions Complete 11/06/2024 8:08 PM EDT Yunior Baker RN * Patient Requests Lesser Strength Medication Answer Date of Assessment Author Patient Request for Lesser Medication 11/01/2024 8:04 PM EDT Fern Pierce, DEE * Question Answer Date of Assessment Author ETCO2 0 11/02/2024 10:10 PM EDT Inte rface, Device In * PT Assessment Question Answer Date of Assessment Author PT Assessment Patient is a 34 y/o female presenting with mildly impaired activity tolerance, otherwise independent for all basic mobility without further skilled acute PT needs. PT to sign off at this time. 11/06/2024 3:18 PM EDT Mateusz Keller PT Prognosis Good 11/06/2024 3:18 PM EDT Mateusz Power PT Impairments Decreased mobility 11/06/2024 3:18 PM EDT Mateusz Keller PT Medical Staff Made Aware Yes 11/06/2024 3:18 PM EDT Mateusz Keller PT Evaluation/Treatment Tolerance Patient tolerated treatment well 11/06/2024 3:18 PM EDT Mateusz Keller PT * Static Standing Balance Question Answer Date of Assessment Author Static Standing-Balance Support No upper extremity supported 11/06/2024 3:18 PM EDT Mateusz Keller, PT Static Standing-Level of Assistance Independent 11/06/2024 3:18 PM EDT Mateusz Keller PT * Dynamic Standing Balance Question Answer Date of Assessment Author Dynamic Standing Balance-Level of Assistance Distant supervision 11/06/2024 3:18 PM EDT Mateusz Keller PT Dynamic Standing-Balance Support No upper extremity supported 11/06/2024 3:18 PM EDT Mateusz Keller PT * Dynamic Sitting Balance Question Answer Date of Assessment Author Dynamic Sitting Balance-Level of Assistance Independent 11/06/2024 3:18 PM EDT Mateusz Keller PT Dynamic Sitting-Balance Support Right upper extremity supported;Left upper extremity supported;Feet supported 11/06/2024 3:18 PM EDT Mateusz Keller PT Dynamic Sitting-Balance Forward lean;Lateral lean 11/06/2024 3:18 PM EDT Mateusz Keller PT * Ambulation Question Answer Date of Assessment Author Ambulation Yes 11/06/2024 3:18 PM EDT Mateusz Power PT * Coordination Question Answer Date of Assessment Author Movements are Fluid and Coordinated Yes 11/06 3:18 PM EDT Mateusz Keller, PT * Postural Control Question Answer Date of Assessment Author Postural Control WFL 11/06/2024 3:18 PM EDT Mateusz Grace PT * General Question Answer Date of Assessment Author Subjective RN approved PT sessi on and OOB activity this date. In bed upon arrival, agreeable to session. Upon completion, patient left in the chair with call light within reach, RN aware 11/06/2024 3:18 PM EDT Mateusz Keller PT PT Diagnosis Impaired activity tolerance. 11/06/2024 3 :18 PM EDT Mateusz Keller, PT Patient Summary Patient is a 34 y/o female presenting from O[facility] 10/30/24 with chest pain and elevated troponin. Underwent heart cath x2 this admission with complications including R groin hematoma now s/p hematoma evacuation and repair of pseudoaneurysm on 11/02/24. 11/06/2024 3:18 PM EDT Mateusz Keller, PT * Bed Mobility Question Answer Date of Assessment Author Bed Mobility Yes 11/06/2024 3:18 PM EDT Mateusz Power, PT * Bed Mobility 1 Question Answer Date of Assessment Author Bed Mobility Comments 1 HOB elevated ~45 degrees 11/06/2024 3:18 PM EDT Mateusz Keller, PT Bed Mobility From 1 Supine 11/06/2024 3:18 PM ED T Mateusz Keller, PT Bed Mobility Type 1 To 11/06/2024 3:18 PM ED T Mateusz Keller, PT Bed Mobility to 1 Short sit 11/06/2024 3:18 PM EDT Mateusz Keller, PT Level of Assistance 1 Independent 11/06/2024 3:18 PM EDT Mateusz Keller, PT * Transfers Question Answer Date of Assessment Author Transfer Yes 11/06/2024 3:18 PM EDT Mateusz Power, PT * Transfer 1 Question Answer Date of Assessment Author Transfer Device 1 none 11/06/2024 3:18 PM EDT Mateusz Keller, PT Trials/Comments 1 BUE on EOB and arm rests of the chair for support without cues from bid writer. 11/06/2024 3:18 PM EDT Mateusz Keller, PT Technique 1 Sit to stand;Stand t o sit 11/06/2024 3:18 PM EDT Mateusz Keller, PT Transfer Level of Assistance 1 Independent 11/06/2024 3:18 PM EDT Mateusz Keller, PT * Static Sitting Balance Question Answer Date of Assessment Author Static Sitting-Balance Support Feet supported 11/06/2024 3:18 PM EDT Mateusz Keller, PT Static Sitting-Level of Assistance Independent 11/06/2024 3:18 PM EDT Mateusz Keller, PT * Ambulation 1 Question Answer Date of Assessment Author Surface 1 Level tile 11/06/2024 3:18 PM EDT Mateusz Keller, PT Device 1 No device 11/06/2024 3:18 PM EDT Mateusz Keller, PT Assistance 1 Distant supervision 11/06/2024 3 :18 PM EDT Mateusz Keller, PT Quality of Gait 1 Mild increased postu ral sway during changes of direction without LOB or significant instability. Otherwise no specific gait abnormalities 11/06/2024 3:18 PM EDT Mateusz Keller, PT Comments/Distance (ft) 1 35 ft - politely declined further ambulation into the hallway preferring to stay within her room. 11/06/2024 3:18 PM EDT Mateusz Keller, PT * Home Living Question Answer Date of Assessment Author Entrance Stairs-Rails None 11/06/2024 3:18 PM EDT Mateusz Keller, PT Entrance Stairs-Number of Steps 2 11/06/2024 3:18 PM EDT Mateusz Keller, PT Home Access Stairs to enter without rails 11/06/2024 3:18 PM EDT Mateusz Keller PT Type of Home House 11/06/2024 3:18 PM EDT Mateusz Power PT Home Layout Two level 11/06/2024 3:18 PM EDT Mateusz Power, PT Bathroom Shower/Tub Tub/shower unit 11/06/2024 3:18 PM EDT Mateusz Keller PT Bathroom Toilet Standard 11/06/2024 3:18 PM EDT Mateusz Ervin PT Bathroom Equipment None 11/06/2024 3:18 PM EDT Mateusz Keller PT Home Adaptive Equipment None 11/06/2024 3:18 P M EDT Mateusz Keller PT Lives With Other (Comment) 11/06/2024 3:18 PM EDT Mateusz Ervin PT * PT Last Visit Question Answer Date [place] [id number] 11/06/2024 3:18 PM EDT Mateusz Vasquez, PT * Suicidal Ideation Question Answer Date of Assessment Author 1. Wish to be (Lifetime) No 10/30/2024 7:54 PM EDT Maribel Merchant RN 2. Non-Specific Active Suici martha Thoughts (Lifetime) No 10/30/2024 7:54 PM EDT Maribel Merchant, R N * Kris Coma Scale Question Answer Date of Assessment Author Best Eye Response Spontaneous 11/07/2024 7:21 AM EDT Patricia Butt RN Best Verbal Response Oriented 11/07/2024 7:21 AM E Patricia Tabor RN Best Motor Response Follows commands 11/07/2024 7:21 A M EDT Patricia Butt RN [place] Coma Scale Score 15 11/07/2024 7:21 AM EDT Patricia Butt RN * Is this patient currently opioid tolerant (receiving at least 60 mg morphine equivalent per day (MME/day) for past 7 days or longer)? Answer Date of Assessment Author Opioid Tolerant 10/31/2024 11:08 AM EDT Ky Ritter MD * Pain Assessment Question Answer Date of Assessment Author Pain Location Groin 11/06/2024 8:08 PM EDT Christine Baker RN Pain Orientation Right 11/06/2024 3:18 PM EDT Mateusz Keller PT Pain Interventions Emotional support;Environmental changes 11/07/2024 7:21 AM EDT Patricia Butt RN Pain Radiating Towards righ 11:14 PM EDT Fern Snider RN Pain Descriptors Aching;Discomfort 11/05/2024 5: 39 PM EDT Joanna French RN Pain Onset Ongoing 11/05/2024 5:39 PM EDT Joanna French RN Pain Frequency Constant/continuous 11/05/2024 5 :39 PM EDT Joanna French RN Response to Interventions Slight improvement 3:27 PM EDT Patricia Butt RN Effect of Pain on Daily Activities decreased mobility 11/03/2024 12:00 PM EDT Sabina Bray RN Pain Type Chronic pain 11/07/2024 7:21 AM EDT Patricia Butt RN Clinical Progression Gradually improving 025 7:21 AM EDT Patricia Butt RN Pain Score 5 - Moderate pain 11/07/2024 3:2 7 PM EDT Patricia Butt RN Patient Behaviors None 11/07/2024 7:2 1 AM EDT Patricia Butt RN Pain Assessment 0-10 11/07/2024 7:21 AM EDT Patricia Butt RN * Nutrition Question Answer Date of Assessment Author Diet Type Heart healthy;Tube feeding 11/07/2024 7:2 1 AM EDT Patricia Butt RN Feeding Able to feed self 11/07/2024 7:21 AM EDT Patricia Butt RN Appetite Fair 11/07/2024 7:21 AM EDT Patricia Butt RN * Respiratory Interventions Question Answer Date of Assessment Author Respiratory Interventions Performed Cough and deep breathe 11/06/2024 12:00 PM EDT Fang Oreilly RN * Cough and Deep Breathe Question Answer Date of Assessment Author Cough and Deep Breathe Yes 11/05/2024 8:00 AM EDT Joanna French RN * Integumentary Question Answer Date of Assessment Author Skin Color Appropriate for race 11/07/2024 7:21 AM Patricia Reynaga RN Skin Condition/Temp Warm;Dry 11/07/2024 7:21 AM ED Patricia Miranda RN Skin Integrity Other (Comment) 11/07/2024 7:21 AM EDPatricia Miranda RN Skin Turgor Non-tenting 11/07/2024 7:21 AM EDPatricia Miranda RN Integumentary Additional Assessments Tattoos 11/07/2024 7:21 AM Patricia Malone RN Integumentary (WDL) X 11/07/2024 7:21 AM ED Patricia Miranda RN Does patient have tattoos? Yes 11/07/2024 7:2 1 AM Patricia Malone RN * GI Interventions Question Answer Date of Assessment Author GI Interventions Performed Encouraged adequate fiber intake;Encouraged adequate fluid intake 11/07/2024 7:21 AM EDPatricia Miranda RN * Question Answer Date of Assessment Author Which is your dominant hand? Right 11/07/2024 7 :21 AM Patricia Malone RN * Question Answer Date of Assessment Author Urinary Frequency Adequate 11/07/2024 4:06 PM Patricia Malone RN Urine Color Yellow/straw 11/07/2024 4:06 PM Patricia Malone RN Urine Appearance Clear 11/07/2024 4:06 PM Patricia Vallejo RN Urine Odor No odor 11/07/2024 4:06 PM Patricia Mlaone RN Urinary Incontinence No 11/07/2024 4:06 PM Patricia Reynaga RN * Audit Alcohol Screening Question Answer Date of Assessment Author How often do you have a drin k containing alcohol? 0 10/30/2024 7:53 PM EDMaribel Quintero R N How many standard drinks con taining alcohol do you have on a typical day? No 10/30/2024 7:53 PM Maribel Cheng R N How often do you have six or more drinks on one occasion? 0 10/30/2024 7:53 PM EDT Jalil Merchant RN Audit-C Score 0 10/30/2024 7:53 PM EDT Maribel Merchant RN * Question Answer Date of Assessment Author Patient Goal for Treatment Pain control 11/07/2024 7 :21 AM EDT Patricia Butt RN * Drug Screening Question Answer Date of Assessment Author Have you used any substances (canabis, cocaine, heroin, hallucinogens, inhalants, etc.) in the past 12 months? No 10/30/2024 7:53 PM EDT Maribel Merchant R N Have you used any prescripti on drugs other than prescribed in the past 12 months? No 10/30/2024 7:53 PM EDT Maribel Merchant R N * Question Answer Date of Assessment Author BP 121/61 11/07/2024 4:09 PM EDT Patricia Butt RN Temp 97.5 11/07/2024 4:09 PM EDT Patricia Butt RN Temp src Temporal 11/07/2024 4:09 PM EDT Patricia Butt RN Pulse 79 11/07/2024 4:09 PM EDT Patricia Butt RN Resp 12 11/07/2024 4:09 PM EDT Patricia Butt RN Heart Rate Source Monitor 11/07/2024 4:09 PM EDT Patricia Butt RN BP Location Right arm 11/07/2024 4:09 PM JUNT Patricia Butt RN BP Method Automatic 11/07/2024 4:09 PM EDT Patricia Butt RN Cardiac Rhythm NSR 11/07/2024 4:09 PM EDT Car rPatricia RN Patient Position Sitting 11/07/2024 4:09 PM EDT C Patricia tom RN * Environment of Care Checklist Question Answer Date of Assessment Author Personal belongings secured? Yes 11/06/2024 8 :08 PM EDT Christine Baker RN Patient dressed in hospital-provided attire only? Yes 11/06/2024 8:08 PM EDT Christine Funez RN Patient care equipment (cord s, cables, call bells, lines, and drains) shortened, removed, or accounted for? Yes 11/06/2024 8:08 PM JUNT Yunior Baker RN Room secured by RN per shift? Yes 11/06/2024 8:08 PM EDT Chirstine Baker RN * Care Plan - Safety Goals Question Answer Date of Assessment Author Free from fall injury Assess patient frequently for physical needs 11/07/2024 7:21 AM EDT Patricia Butt RN * Modified Jesi Question Answer Date of Assessment Author Activity 2 11/02/2024 11:28 PM EDT Fern Henley RN Respiration 2 11/02/2024 11:28 PM EDT Fern Henley RN Circulation 2 11/02/2024 11:28 PM EDT Fern Henley RN Consciousness 2 11/02/2024 11:28 PM EDT Fern Hammonds RN Oxygen Saturation 2 11/02/2024 11:28 PM EDT Fern Snider RN Modified Jesi Score 10 11/02/2024 11:28 P M EDT Fern Snider RN * Modified Malnutrition Screening Tool (MST) Question Answer Date of Assessment Author Have you recently lost weigh t without trying? 0 10/30/2024 7:54 PM EDT Maribel Merchant R N Have you been eating poorly because of a decreased appetite? 0 10/30/2024 7:54 PM EDT Asad Merchant RN On home tube feeding or TPN? 0 10/30/2024 7 :54 PM EDT Maribel Merchant RN Does patient have a stage 2- 4 pressure ulcer? 0 10/30/2024 7:54 PM EDT Maribel Merchant R N * Weight Loss Score Answer Date of Assessment Author 0 10/30/2024 7:54 PM EDT Mireya Merchant RN * Malnutrition Score Answer Date of Assessment Author 0 10/30/2024 7:54 PM EDT Mireya Merchant RN documented as of this encounter Mental Status * Kris Coma Scale Question Answer Entry Date Author Best Eye Response Spontaneous 11/07/2024 7:21 AM EDT Patricia Butt RN Best Verbal Response Oriented 11/07/2024 7:21 AM E Patricia Tabor RN Best Motor Response Follows commands 11/07/2024 7:21 A M EDT Patricia Butt RN [place] Coma Scale Score 15 11/07/2024 7:21 AM EDT Patricia Butt RN * Question Answer Entry Date Author [place] Agitation Sedation Scale (RASS) 0 11/07/2024 7:21 AM EDT Patricia Butt RN * Modified Jesi Question Answer Entry Date Author Activity 2 11/02/2024 11:28 PM EDT Fern Henley RN Respiration 2 11/02/2024 11:28 PM EDT Fern Henley RN Circulation 2 11/02/2024 11:28 PM EDT Fern Henley RN Consciousness 2 11/02/2024 11:28 PM EDT Fern Hammonds RN Oxygen Saturation 2 11/02/2024 11:28 PM EDT Fern Snider RN Modified Jesi Score 10 11/02/2024 11:28 P M EDT Fern Snider RN documented in this encounter Discharge Summaries * Mauricio Garcia MD - 11/07/2024 2:47 PM EDT Images from the original note were not included. Hospital Medicine Discharge Summary Date of Admission: 10/30/2024 Date of Discharge: 11/07/2024 Reason for Admission: Chest pain, elevated troponin. History of Present Illness: The patient is a 34-year-old female with a past medical history of hypertension, hyperlipidemia, asthma, RICHAR, hypothyroidism, GERD, IBS, type 2 diabetes mellitus, morbid obesity s/p sleeve gastrectomy, median arcuate ligament syndrome (s/p celiac plexus block and MALS release), gastroparesis (previously J-tube dependent, now on daily infusions/TPN), and extensive chronic adhesions with recurrent bowel obstructions. She presented as a direct admission from [facility] on 10/30/2024 with severe, sharp, left-sided chest pain radiating to the left arm, associated with dizziness, shortness of breath, nausea, and vomiting following her daily infusion therapy. At [place], troponin was 390 and chest X-ray showed mild fluid overload. She was started on heparin infusion and transferred for higher level of care. On arrival to [facility], troponin was 337, hemoglobin 9.7, BNP 77, magnesium 1.7. ECG showed NSR with PVCs. Hospital Course: Cardiology: Serial troponins peaked at 390 and trended down to 61. ECGs showed NSR with PVCs; no acute ST-T wave changes at discharge. Cardiac catheterization on 11/01 and 11/02 revealed type III SCAD. Complicated by right groin pseudoaneurysm post-catheterization ? evaluated and surgically repaired by vascular surgery on 11/02. GONSALO drain removed 11/05. Continued intermittent chest pain, partially reproducible on palpation; improved with verapamil andtramadol. Placed on dual antiplatelet therapy (aspirin, clopidogrel), high-intensity statin (rosuvastatin), fenofibrate, and beta-reece (metoprolol, adjusted during stay). Vascular Surgery: Repaired right groin pseudoaneurysm (11/02). Recommended neurovascular checks, ice packs, Tylenol for pain, and to avoid narcotics. Signed off once stable; hemoglobin stable at ~9 g/dL. Urology: Evaluated for urinary retention. Costello catheter placed on 11/04. Plan for outpatient follow-up. Other: Daily labs monitored. No acute end-organ damage noted. Home health services arranged for assistance with Costello care and monitoring. 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) NSTEMI, resolving (troponins downtrending) Right groin pseudoaneurysm s/p repair (11/02/2024) Hypertension Hyperlipidemia Asthma RICHAR Hypothyroidism GERD IBS Type 2 diabetes mellitus Morbid obesity s/p sleeve gastrectomy Gastroparesis on TPN/daily infusions Urinary retention, s/p Costello catheter placement Chronic abdominal adhesions and recurrent obstruction Follow-up / Referrals: Cardiology: [facility], scheduled 11/14/2024 Urology: For Costello management and voiding dysfunction Primary Care Physician: Within 1 week Home Health: For Costello care and monitoring Condition on Discharge: Stable. Hemodynamically stable, chest pain improved, troponin downtrending, groin site clean and dry, Costello catheter in place. Discharge Instructions: Continue all cardiac medications as prescribed. Monitor for recurrent chest pain, shortness of breath, dizziness, or groin site swelling/bleeding; return to ED if symptoms occur. Costello catheter care as instructed; follow up with urology for removal and further evaluation. Attend scheduled cardiology follow-up on 11/14/2024. Dear MD Evette, Juan is advised to follow up with you within 1-2 weeks. Items to follow up in ambulatory setting: None Follow-up with: Cardiology Scheduled appointments: Future Appointments Date Time Provider Department Center 11/14/2024 3:25 PM Christina Rodriguez CNP [facility] 11/20/2024 2:30 PM Delphine Du NP [facility] 11/27/2024 2:15 PM Santa Wall CNP [facility] URO Second Fl 12/04/2024 10:00 AM Katie Altamirano MD [facility] Your medication list START taking these medications Instructions Last Dose Given Next Dose Due aspirin 81 mg chewable tablet Start taking on: November 03, 2024 Chew 1 tablet (81 mg) with breakfast for 120 doses. atorvastatin 80 mg tablet Commonly known as: Lipitor Take 1 tablet (80 mg) by mouth at bedtime for 120 doses. clopidogrel 75 mg tablet Commonly known as: Plavix Start taking on: November 03, 2024 Take 1 tablet (75 mg) by mouth in the morning for 120 doses. metoprolol succinate XL 25 mg 24 hr tablet Commonly known as: Toprol-XL Start taking on: November 03, 2024 Take 0.5 tablets (12.5 mg) by mouth in the morning for 120 doses. Do not crush or chew. CHANGE how you take these medications Instructions Last Dose Given Next Dose Due metoclopramide 10 mg tablet Commonly known as: Reglan What changed: when to take this Take 1 tablet (10 mg) by mouth if needed in the morning and at bedtime (nausea and vomiting). CONTINUE taking these medications Instructions Last Dose Given Next Dose Due acetaminophen 325 mg tablet Commonly known as: Tylenol ALBUTEROL INHL ergocalciferol 1.25 MG (50334 Units) capsule Commonly known as: Vitamin D-2 escitalopram 20 mg tablet Commonly known as: Lexapro fentaNYL 25 mcg/hr Commonly known as: Duragesic fentaNYL 12 mcg/hr Commonly known as: Duragesic HYDROcodone-acetaminophen 5-325 mg tablet Commonly known as: Marcellus hydrocortisone 10 mg tablet Commonly known as: Cortef hydrOXYzine HCL 25 mg tablet Commonly known as: Atarax levothyroxine 75 mcg tablet Commonly known as: Synthroid, Levoxyl liothyronine 5 mcg tablet Commonly known as: Cytomel metFORMIN (OSM) 500 mg 24 hr tablet Commonly known as: Fortamet methocarbamol 500 mg tablet Commonly known as: Robaxin mirtazapine 30 mg tablet Commonly known as: Remeron omeprazole [address] capsule Commonly known as: PriLOSEC prucalopride 2 mg tablet sucralfate 1 gram tablet Commonly known as: Carafate topiramate 100 mg tablet Commonly known as: Topamax traMADol 50 mg tablet Commonly known as: Ultram traZODone 100 mg tablet Commonly known as: Desyrel STOP taking these medications dexAMETHasone 2 mg tablet Commonly known as: Decadron linaCLOtide 290 mcg capsule Commonly known as: Linzess prochlorperazine 10 mg tablet Commonly known as: Compazine Where to Get Your Medications These medications were sent to [facility] [place] [address] [address] [place] [address] [place] [address], [facility] [address] aspirin 81 mg chewable tablet atorvastatin 80 mg tablet clopidogrel 75 mg tablet metoclopramide 10 mg tablet metoprolol succinate XL 25 mg 24 hr tablet [place] is allergic to codeine, nsaids (non-steroidal anti-inflammatory drug), and adhesive. [place] [facility] [place] Discharge Condition: Stable Code Status: Full Code Diagnostic Results Hematology: Results from last 7 days Lab Units 11/07/24 0627 11/06/24 0550 11/03/24 0446 11/03/24 0007 WBC AUTO 10*3/uL 4.21 3.50* < > 7.71 HEMOGLOBIN g/dL 9.0* 8.8* < > 9.7* HEMATOCRIT % 26.9* 26.6* < > 29.0* MCV fL 89.4 89.0 < > 89.0 PLATELETS AUTO 10*3/uL 206 185 < > 216 INR -- -- -- 1.17* < > = values in this interval not displayed. Chemistry: Results from last 7 days Lab Units 11/07/24 0450 11/06/24 0550 11/05/24 0348 SODIUM mmol/L 139 139 139 POTASSIUM mmol/L 3.9 3.9 3.6 CHLORIDE mmol/L 105 105 107 CO2 mmol/L 28 27 28 BUN mg/dL 14 12 11 CREATININE mg/dL 0.52* 0.61 0.48* GLUCOSE mg/dL 87 85 120* MAGNESIUM mg/dL 2.1 1.9 1.9 CALCIUM mg/dL 8.3* 8.4* 8.0* PHOSPHORUS mg/dL 4.7 4.7 4.0 No lab exists for component: AFIO2 , APHT , APCOT , APOT , ATCO2 , CK , ALB , IBILI Test Results Pending At Discharge: Pending Labs Order Current Status CBC Collected (11/06/24 0748) Diet at the time of discharge: regular diet and cardiac diet Nutrition Screen Activity: Patient currently has no discharge activity orders Objective Blood pressure (!) 117/49, pulse 82, temperature 36.3 ??C (97.4 ??F), temperature source Temporal, resp. rate 12, height 1.676 m (5' 5.98 ), weight 83.2 kg (183 lb 6.4 oz), SpO2 97%. Cardiology: Normal rate, regular rhythm. Lungs: Clear to auscultation, no wheezes, rales or rhonchi, symmetric air entry. Abdomen: Soft, non tender, non distended. Total time for discharge - review of data, exam, discussion with providers and care-team, med-rec and orders, arranging follow up, counseling of patient and/or family and documentation was 43 minutes. Signed Mauricio Garcia MD [facility] 11/07/2024 2:48 PM CC: MD Evette documented in this encounter Discharge Instructions * Discharge Instr - AVS First Page* Karley Leslie RN - 11/02/2024 7:21 AM EDT -Please notify physician or advanced practice provider with any questions or concerns regarding your medical condition(s). -If you need immediate medical attention, please dial 9-1-1 or go to your closest emergency department. * Discharge Instr - Activity* Nathalie Oliveira LPN - 11/02/2024 8:38 AM EDT Activity as tolerated Fall risk precautions Follow post cardiac cath instructions * Discharge Instr - Diet* May Emery RN - 11/02/2024 7:22 AM EDT Regular Diet Heart Healthy/HTN, CABG,Stroke, (2 grams of sodium per day, low fat, low cholesterol);PO diet regular as tolerated. Intakes variable. [place], small meals. ONS. Dietary nutrition supplements BID (breakfast & dinner); Boost Glucose Control; Chocolate; 8 oz;Oral Dietary nutrition supplements Lunch; Gelatein; Lignite; 4 oz; Oral [id number] only Adult Cyclic 3-in-1 TPN: 2,300 mL, intravenous, at 79.8-158.5 mL/hr, Administer over 16 Hours, Cyclic TPN, 158.5 ml/hr x 13 hr, 79.8 ml/hr x last 3 hr Use a 1.2 micron filter. 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 Check blood sugars 4 times daily (Before meals & Before bedtime) * Appointments* May Emery RN - 11/02/2024 8:42 AM EDT Plan of Treatment - Upcoming Encounters Upcoming Encounters Date Type Department Care Team (Latest Contact Info) Description 11/06/2024 10:30 AM EDT Infusion Center Hematology/Oncology [address] [place] [address] [place] [address] [facility] dressing and cap change;Labs as needed per patient 11/10/2024 2:15 PM EDT Appointment [facility] Endoscopy - ENDO [address] [place] [address] [place] [address] [place] [address] EGD and tube exchange failure to thrive nausea and vomiting 11/13/2024 10:45 AM EDT Infusion Center Hematology/Oncology [address] [place] [address] [place] [address] [facility] dressing and cap change;Labs as needed per patient 11/20/2024 9:15 AM EDT Infusion Center Hematology/Oncology [facility] [place] [address] [facility] dressing and cap change;Labs as needed per patient 11/27/2024 9:00 AM EDT Infusion Center Hematology/Oncology [facility] [place] [address] [facility] dressing and cap change;Labs as needed per patient 11/30/2024 8:30 AM EDT [facility] [address] [place] [id number] Georgina Barkley MD [facility]3] [address] [address] HPN / VIRTUAL 12/04/2024 9:15 AM EDT [facility] H[facility]ology[facility]Oncology [address] [place] [address] [place] [address] [facility] dressing and cap change;Labs as needed per patient Scheduled Appointments -Please follow up with the providers listed above.?? -If you are unable to keep your appointments, please call to reschedule as soon as possible.?? -Failure to cancel/reschedule your appointments, may result in dismissal from your medical providers practice(s).? * Discharge Instr - Other Orders* May Emery RN - 11/02/2024 8:39 AM EDT CVC Single Lumen Tunneled Right Subclavian: keep clean and dry. Monitor for bleeding and signs/symptoms of infection (increased redness, swelling, pain, and warmth around the wound, increased drainage) If any of these symptoms occur please contact your PCP care as soon as possible. 11/01/[address] Agustin: INSTRUCTIONS FOR SELF CARE AFTER CARDIAC TESTING WITH GROIN ACCESS CARE FOR YOUR INCISION: ?? You may shower 24 hours after the procedure. Remove the bandage from the hospital before showering. ?? Gently clean site using soap and water while standing in the shower. Dry thoroughly. ?? Cleaning the site with soap and water is sufficient. Do not apply antibiotic ointments, powders or lotions. ?? Cover the site after 24 hours with a square adhesive Band-Aid that seals and covers the area well. ?? Keep the site clean and dry to prevent infection. If the bandage becomes wet, remove that one and put on a new one. ?? Do not sit in a bathtub, pool, or hot tub for seven days or until wound has healed. ?? Inspect the site daily. ACTIVITY: Unless otherwise instructed you may: ?? Resume normal activity in two days, including driving, letting pain be your guide. ?? Limit lifting over 10 pounds for one week or until wound heals. NORMAL OBSERVATIONS: ?? Soreness or tenderness that may last one week. ?? Mild oozing from incision site. ?? A certain amount of bruising is normal and could last up to two weeks. ?? Formation of a small lump (dime to quarter size) which may last up to six weeks. FOLLOW UP: Call your physician immediately if you experience any of the following: ?? Significant bleeding that does not stop after 10 minutes of applying firm pressure directly on incision. ?? Increased swelling of groin or leg. ?? Lump at groin site increases in size. ?? Unusual pain at groin or down that leg. ?? Signs of infection: redness, warmth to touch, drainage (other than a little blood on the bandage), poorly healing incision, fever, or chills. 10/31/[address] Gilmore Follow Post cath instructions: (radial) No lifting greater than 5 pounds for 72 hours after procedure You may resume your normal activities gradually over the next week, or as instructed Keep arm elevated on pillow overnight with brachial and radial cath sites. Keep puncture site dry for 24 hours; may shower 24 hours after procedure Remove band aid dressing from site the morning after the procedure Do not sit in bath water, Jacuzzi or pool/pond/gamez for one week Notify physician if you develop: IF BLEEDING APPLY FIRM PRESSURE TO THE SITE If bleeding heavily report to the emergency room Severe pain to cath site Hard, painful, swelling larger than a quarter at puncture site Numbness and or tingling Fever greater than 101 degrees Redness, warmth, drainage at puncture site s/p hematoma evaluation and repair of pseudoaneurysm on 11/02. GONSALO drain removed 11/05 11/03 Urethral Catheter placed. 11/07: Costello removed, monitor for urinary retention. * Attachments The following attachments cannot be sent through Care Everywhere. * Indwelling Urinary Catheter Care Adult Aesj-ob-Gkvo (Belarusian) documented in this encounter Medications at Time of Discharge acetaminophen (Tylenol) 325 mg tablet Take 650 mg by mouth every 4 (four) hours if needed for mild pain (1-3 pain score). ALBUTEROL INHL Inhale 90 mcg every 6 (six) hours if needed (SOB or wheezing). aspirin 81 mg chewable tabletIndication s:Spontaneous dissection of coronary artery Chew 1 tablet (81 mg) with breakfast for 120 doses. 30 tablet 3 11/03/2024 6 clopidogrel (Plavix) 75 mg tabletIndication s:Spontaneous dissection of coronary artery Take 1 tablet (75 mg) by mouth in the morning for 120 doses. 30 tablet 3 11/03/2024 6 escitalopram (Lexapro) 20 mg tablet Take 20 mg by mouth in the morning. fentaNYL (Duragesic) 25 mcg/hr Place 1 patch on the skin every 3rd (third) day. hydrocortisone (Cortef) 10 mg tablet Take 10 mg by mouth in the morning. hydrOXYzine HCL (Atarax) 25 mg tablet Take 50 mg by mouth if needed at bedtime. levothyroxine (Synthroid, Levoxyl) 75 mcg tablet Take 75 mcg by mouth before breakfast. liothyronine (Cytomel) 5 mcg tablet Take 5 mcg by mouth in the morning. metFORMIN, OSM, (Fortamet) 500 mg 24 hr tablet Take 500 mg by mouth with breakfast and with evening meal. Do not crush, chew, or split. methocarbamol (Robaxin) 500 mg tablet Take 750 mg by mouth four times daily. metoclopramide (Reglan) 10 mg tabletIndication s:Gastroparesis Take 1 tablet (10 mg) by mouth if needed in the morning and at bedtime (nausea and vomiting). 60 tablet 11/02/2024 5 metoprolol succinate XL (Toprol-XL) 25 mg 24 hr tabletIndication s:Hematoma Take 1 tablet (25 mg) by mouth in the morning for 92 doses. Do not crush or chew. Do not start before November 08, 2024. 30 tablet 3 11/08/2024 5 mirtazapine (Remeron) 30 mg tablet Take 45 mg by mouth at bedtime. omeprazole (PriLOSEC) [address] capsule Take 40 mg by mouth before breakfast and before evening meal. Do not crush or chew. prucalopride 2 mg tablet Take 2 mg by mouth in the morning. rosuvastatin (Crestor) 40 mg tabletIndication s:Hematoma Take 1 tablet (40 mg) by mouth at bedtime for 99 doses. 30 tablet 3 11/07/2024 5 sucralfate (Carafate) 1 gram tablet Take 1 g by mouth before breakfast, before lunch, before evening meal, and at bedtime. topiramate (Topamax) 100 mg tablet Take 100 mg by mouth two times daily. traMADol (Ultram) 50 mg tablet Take 50 mg by mouth every 6 (six) hours if needed. traZODone (Desyrel) 100 mg tablet Take 100 mg by mouth at bedtime. verapamil (Calan) 40 mg tabletIndication s:Hematoma Take 1 tablet (40 mg) by mouth every 8 (eight) hours for 287 doses. 90 tablet 3 11/07/2024 5 ergocalciferol (Vitamin D-2) 1.25 MG (79754 Units) capsule Take 50,000 Units by mouth 1 (one) time per week. 5 fentaNYL (Duragesic) 12 mcg/hr Place 1 patch on the skin every 3rd (third) day. Takes 12 mcg and 25 mcg together every 3 days 5 HYDROcodone-acet aminophen (Marcellus) 5-325 mg tablet Take 2 tablets by mouth every 4 (four) hours if needed for moderate-severe pain (4-10 pain score). 5 documented as of this encounter Progress Notes * Deepika Diallo - 11/07/2024 2:20 PM EDT discharge planning: to Home with [address] [facility] Patient came to this admission from their private residence in the community; they are reported to be managing their own TPN needs at home, with supplies being provided through [facility]. 1345 - Patient is discharging with a [place], which is new this admission; Patient agreeable to [facility], no preference of provider, agreeable to mass referral - [facility] referral sent; awaiting replies [address] only accepting [facility] provider; added them to AVS 1512 AVS sent to [address], via [employer] system 1613 Patient had costello removed, still appropriate to have [facility] nursing; updated AVS sent to [address], [employer] system * Christina Rodriguez CNP - 11/07/2024 12:56 PM EDT Images from the original note were not included. Cardiology Progress Note Subjective Subjective: 11/07/2024 Patient seen and examined at bedside this AM. No acute events overnight. She notes continued episodes of intermittent chest pain. Occurs when she is exerting herself, either walking in the room or going from the bed to the chair. Pain is left sided/ radiates to her left arm. 11/06/2024 Patient seen and examined at bedside, no acute events overnight, vital signs are stable. Chest painhas been persistently 3 or 4 out of 10, with 1 episode of 8 out of 10 yesterday morning. Patient received tramadol 50 mg and verapamil 40 mg at that time. Patient states that helped alleviate her pain. 11/05/2024 Pt seen and examined at bedside. No acute events overnight. Her chest pain feels better today with addition of verapamil. She notes some periodic c/o chest pain such as getting up to the chair. She notes ongoing right groin discomfort. Denies dyspnea, dizziness/LH, palpitation. 11/04/2024 Patient was seen and examined at bedside, no acute events overnight, vital signs are stable. She was having urinary retention yesterday, and a Costello was placed at bedside by urology. Follow-up in OP setting to workup dysfunctional voiding. Chest pain completely resolved during encounter, and patient complained of slight tenderness in the right groin region. 11/03/2024 Patient was seen and examined at bedside, overnight had pseudoaneurysmal complication in the right groin after catheterization s/p pseudoaneurysm repair by vascular surgery. Patient is doing well today, with pain downtrending from 6 to 0 out of 10. 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 11/02/2024 Patient was seen and examined at bedside, no acute events overnight, vital signs are stable. Patient was cathed yesterday and found to have type III SCAD, and later this afternoon had 7 out of 10 sharp shooting chest pain in which she was cathed, repeat coronary angiogram was done. 11/01/2024 Underwent coronary angiogram yesterday but only left coronary artery was engaged. Repeat cath todayto assess the RCA. Patient reports intermittent chest pain and lightheadedness upon standing up. Denies shortness of breath. She is getting TPN at bedside. History: Juan Kong is a 34 y.o. female w/ PMHx of HTN, HLD, asthma, RICHAR, hypothyroidism, GERD, IBS, fibromyalgia, T2DM, median arcuate ligament syndrome s/p celiac plexus block and MALS release, morbid obesity s/p sleeve gastrectomy, extensive chronic adhesions and recurrent obstructions, and gastroparesis s/p multiple infusions and J-tube C/B infection and removal who came as a direct admission from [facility] due to chest pain. Patient states that the pain started after her qD infusions for gastroparesis and characterizes as sharp and radiating to her left arm, 10 out of 10. She states that the CP was associated with dizziness, shortness of breath, nausea, and vomiting. At this time, she states that she has been receivingLR infusions w/ Benadryl and Compazine daily for the past month, and at the beginning of when she was receiving it yesterday she started feeling severe chest pain. HST trending from 337 to 129 down to 61, and BNP 77. ECG shows NSR with HR 83, and some PVCs. Repeat ECG ordered, and patient has never had a cath. Previous echocardiogram showed normal results and was completed due to concern for endocarditis due to sepsis, however patient does not remember the exact results. Patient symptoms have improved and are now a 5 out of 10, with sporadic sharp pains but general dull pain. Patient's pain is reproducible with palpitation in the left axilla, and left chest region. Objective Current Medications[1] Objective: Patient Vitals for the past 24 hrs: BP Temp Temp src Pulse Resp SpO2 Weight 11/07/24 1201 123/63 -- -- -- -- -- -- 11/07/24 0721 (!) 114/45 36.3 ??C (97.4 ??F) Temporal 82 12 97 % -- 11/07/24 0700 111/53 -- -- 87 12 99 % -- 11/07/24 0659 (!) 105/44 -- -- 88 14 99 % -- 11/07/24 0657 (!) 105/44 -- -- -- -- -- -- 11/07/24 0606 (!) 124/49 -- -- 78 (!) 8 100 % -- 11/07/24 0509 -- -- -- -- -- -- 83.2 kg (183 lb 6.4 oz) 11/07/24 0450 (!) 114/49 36.4 ??C (97.5 ??F) Temporal 93 10 100 % -- 11/07/24 0400 (!) 114/45 -- -- 78 14 100 % -- 11/07/24 0115 121/63 -- -- 74 -- 97 % -- 11/07/24 0000 (!) 109/47 36.9 ??C (98.5 ??F) Temporal 79 13 96 % -- 11/06/247 117/51 -- -- -- -- -- -- 11/06/242007 124/57 36.6 ??C (97.9 ??F) Temporal 84 13 100 % -- 11/06/24 1619 94/70 36.1 ??C (97 ??F) Temporal 79 13 97 % -- 11/06/24 1330 107/55 36 ??C (96.8 ??F) Temporal 94 17 96 % -- Physical Examination: Physical Exam Constitutional: General: She is not in acute distress. Appearance: Normal appearance. She is normal weight. She is not ill-appearing. HENT: Head: Normocephalic and atraumatic. Nose: No congestion or rhinorrhea. Mouth/Throat: Mouth: Mucous membranes are moist. Eyes: General: No scleral icterus. Extraocular Movements: Extraocular movements intact. Conjunctiva/sclera: Conjunctivae normal. Pupils: Pupils are equal, round, and reactive to light. Cardiovascular: Rate and Rhythm: Normal rate and regular rhythm. Pulses: Normal pulses. Heart sounds: Normal heart sounds. No murmur heard. Comments: Right groin s/p pseudoaneurysm repair - tenderness with palpation, ecchymosis noted Pulmonary: Effort: Pulmonary effort is normal. No respiratory distress. Breath sounds: Normal breath sounds. No wheezing. Abdominal: General: Abdomen is flat. Bowel sounds are normal. There is no distension. Palpations: Abdomen is soft. Tenderness: There is no abdominal tenderness. There is no guarding. Musculoskeletal: General: No swelling. Right lower leg: No edema. Left lower leg: No edema. Skin: General: Skin is warm. Coloration: Skin is not jaundiced or pale. Neurological: General: No focal deficit present. Mental Status: She is alert and oriented to person, place, and time. Mental status is at baseline. Cranial Nerves: No cranial nerve deficit. Motor: No weakness. Psychiatric: Mood and Affect: Mood normal. Behavior: Behavior normal. Thought Content: Thought content normal. Judgment: Judgment normal. Relevant Lab Results Encounter Date: 10/30/24 ECG 12 lead Result Value Ventricular Rate 91 Atrial Rate 91 MA Interval 134 QRS DURATION 88 QT Interval 386 QTC CALCULATION(BAZETT) 474 P [place] 63 R-Ravencliff 35 T Wave [place] 46 Impression Sinus rhythm with Premature supraventricular complexes Otherwise normal ECG When compared with ECG of 04-NOV-2024 13:40, Premature supraventricular complexes are now Present No results found for: CKTOTAL , CKMB , CKMBINDEX , TROPONINI Limited Echo (TTE) w/wo Limited Doppler, Color Flow, Imaging Agent, Strain, 3D, Bubble Study Result Date: 10/31/2024 1 1 [facility] Heart Station [address] [place] [address] [phone] (fax) Echocardiogram-[facility] Name: JUAN KONG Study Date: 10/31/2024 11:16 AM B/P: 106 mmHg/67 mmHg HR: 70 bpm Date of : 1990 [facility] Age: 34 year(s) Patient Room: [facility] Weight: 181 lb. Gender: Female Patient Status: InPt BSA: 1.92 m2 Indication: Chest Pain, gartroparesis, limited echo to assess CP Examination: Limited Echo, Color flow imaging, Lumason Contrast Image Quality: Fair Patient Consent: Procedure explained to patient Exam Details Contrast: I.V. dose of Lumason Conclusions Left Ventricle: Global left vent ricular systolic function is at lower limits of normal. The calculated Biplane EF is 53 %. EF rangeis estimated at 50 % -55 %. Left ventricular wall thickness is normal. Regional wall motion abnormalities (see diagram). Right Ventricle: The right ventricle is normal in size. Normal right ventricular systolic function. Unable to assess right sided pressures due to lack of measurable tricuspid regurgitation. Left Atrium: The left atrium is normal in size. Pericardium: There is a minimal pericardial effusion. Overall Conclusions: Due to suboptimal imaging Lumason contrast was administered for opacification and better delineation of endocardial borders. Measurements Left Ventricle Label Value Normal Value LVDd, 2D 4.71 cm (3.9cm - 5.3cm) LVDs, 2D 2.96 cm (2.1cm - 4cm) IVSd, 2D 0.7 cm (0.6cm - 1.1cm) LVPWd, 2D 0.83 cm (0.6cm - 0.9cm) LVEF, BP 53 % (55% - 65%) LV Mass, 2D ASE 115.82 g LV Mass Index, 2D ASE 60.3 g/m?? (44g/m?? - 88.4g/m??) RWT, MM 0.35 (0 - 0.42) LVSVI, 2D 35.9 ml/m2 Aorta Label Value Normal Value AoRoot, 2D 2.5 cm (1.4cm - 3.8cm) Valvular Assessment LVOT 0.7 - 1.1 m/sec Aortic Valve 1.0 - 1.7 m/sec Mitral Valve 0.6 - 1.3 m/sec Tricuspid Valve 0.3 - 0.7 m/sec Pulmonic Valve 0.6 - 0.9 m/sec Regurgitation No No No No Findings Left Ventricle: Global left ventricular systolic function is at lower limits of normal. The calculated Biplane EF is 53 %. EF range is estimatedat 50 % -55 %. Left ventricular wall thickness is normal. Regional wall motion abnormalities (see diagram). The basal inferolateral, mid anterior, mid anteroseptal, mid inferoseptal, mid inferolateral and apical lateral left ventricular wall segments are hypokinetic. All remaining scored left ventricular wall segments are with no wall motion abnormalities. Right Ventricle: The right ventricle is normal in size. Normal right ventricular systolic function. Unable to assess right sided pressures due to lack of measurable tricuspid regurgitation. Left Atrium: The left atrium is normal in size. Right Atrium: The right atrium is normal in size. Mitral Valve: The mitral valve is normal in mobilityand thickness. No mitral regurgitation. Aortic Valve: The aortic valve is normal. No aortic valve regurgitation. Tricuspid Valve: Normal tricuspid valve. No tricuspid regurgitation. Pulmonic Valve: Normal pulmonary valve. No pulmonary regurgitation. Aorta: The aortic root exhibits normal size. Great Vessels: IVC: The IVC is not visualized. Pericardium: There is a minimal pericardial effusion. Procedure Staff Reading Group: [facility] Finisher [employer]board [employer] Plasterboard: DAVID Kearney, RDCS Ordering Physician: [place] RITTER Wall Motion Scores -1 - hyperkinesia, 0 - not evaluated, 1 - normal, 2 - hypokinesia, 3 - akinesia, 4 - dyskinesia No nuclear medicine results found for the past 12 months Relevant Imaging Results ECG 12 lead Sinus rhythm with Premature supraventricular complexes Otherwise normal ECG When compared with ECG of 04-NOV-2024 13:40, Premature supraventricular complexes are now Present 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, type III SCAD EKG shows NSR with HR 83 and some PVCs HST trend: [id number] downtrending Cath on 11/01/2024: Coronary angiogram and IVUS demonstrate focal SCAD (Type 3 SCAD) in the mid LAD.Since there is good coronary artery blood flow and the SCAD is non-flow limiting, medical therapy is recommended Myocardial bridging of mid LAD Right Groin Hematoma, right groin pseudoaneurysm s/p repair 11/02 SCAD type III in mid LAD T2DM Morbid obesity s/p sleeve gastrectomy IBS HTN HLD RICHAR GERD Hypothyroidism Asthma H/O median arcuate ligament syndrome s/p celiac plexus block and MALS release H/O extensive chronic adhesions and recurrent obstructions Gastroparesis s/p daily infusions and J-tube C/B infection and removal Fibromyalgia PLAN Continue aspirin and Plavix Closely monitor Hgb Transfuse for hemoglobin < 8 Given intermittent CP with exertion, will increase Toprol to 25mg daily. HSTroponin today was unremarkable at 10. Will review with interventional cardiology if any further regimens can be implemented as her BP is on the low side. Continue verapamil 40mg TID. Follow-up appt made for pt to see us in our [facility] on 11/14/24. Rest of care per primary team Cardiology will continue following along [facility] ADDENDUM: Pt reported her chest pain sx's were improved this afternoon. Pt okay to discharge from a cardiac standpoint. Follow-up as scheduled next week. Of note, discussed with Dr. Gilmore, can consider addition of Ranexa for recurrent chest pain if unable to increase Toprol or verapamil due to low BP. [facility] [1] Current Facility-Administered Medications: acetaminophen (Tylenol) tablet 650 mg, 650 mg, oral, q8h PRN, HENNY Sanon-C, 650 mg at 11/05/24 1633 Adult Cyclic 3-in-1 TPN, 2,300 mL, intravenous, Cyclic TPN, Kaye Craig RD, Last Rate: 79.8 mL/hrat 11/07/24 1030, Rate Change at 11/07/24 1030 albuterol 90 mcg/actuation inhaler 2 puff, 2 puff, inhalation, q6h PRN, Debbie Luna BEEF SPECIALIST aspirin EC tablet 81 mg, 81 mg, oral, Daily, Sid McQuillin, PA-C, 81 mg at 11/07/24 0900 clopidogrel (Plavix) tablet 75 mg, 75 mg, oral, Daily, Sid McQuillin, PA-C, 75 mg at 11/07/24 0900 glucose chewable tablet 24 g, 24 g, oral, q15 min PRN OR dextrose 50 % in water (D50W) syringe 25 g, 25 g, intravenous, q15 min PRN, Debbie Luna BEEF SPECIALIST, 25 g at 10/31/24 1228 diphenhydrAMINE (BENADryl) injection 50 mg, 50 mg, intravenous, q6h PRN, Josefina Mcgarry MD, 50 mg at 11/07/24 1201 enoxaparin (Lovenox) syringe 30 mg, 30 mg, subcutaneous, BID, Sid Cruz PA-C, 30 mg at 11/07/24 0855 escitalopram (Lexapro) tablet 20 mg, 20 mg, oral, Daily, Rosa Willoughby PA-C, 20 mg at 11/07/24 0900 fentaNYL (Duragesic) 12 mcg/hr 1 patch, 1 patch, transdermal, q72h, 1 patch at 11/05/24 1739 AND fentaNYL (Duragesic) 25 mcg/hr 1 patch, 1 patch, transdermal, q72h, Timothy Dee MD, 1 patch at 11/05/24 1739 HYDROcodone-acetaminophen (Marcellus) 5-325 mg per tablet 1 tablet, 1 tablet, oral, q4h PRN, 1 tablet at 11/03/24 1011 OR HYDROcodone-acetaminophen (Marcellus) 5- 325 mg per tablet 2 tablet, 2 tablet, oral, q4h PRN, Ky Ritter MD, 2 tablet at 11/07/24 0909 hydrocortisone (Cortef) tablet 10 mg, 10 mg, oral, Daily, Debbie Luna CNP, 10 mg at 11/07/24 0855 hydrOXYzine pamoate (Vistaril) capsule 50 mg, 50 mg, oral, Nightly PRN, Debbie Luna CNP insulin lispro (HumaLOG) injection 0-5 Units, 0-5 Units, subcutaneous, TID with meals AND insulin lispro (HumaLOG) injection 0-4 Units, 0-4 Units, subcutaneous, Nightly, Rosa Willoughby PA-C levothyroxine (Synthroid, Levoxyl) tablet 75 mcg, 75 mcg, oral, Daily before breakfast, Rosa Willoughby PA-C, 75 mcg at 11/07/24 0608 lidocaine (Lidoderm) 5 % patch 1 patch, 1 patch, topical (top), q24h, Eduarda Bravo PA-C, 1 patch at11/07/24 0909 liothyronine (Cytomel) tablet 5 mcg, 5 mcg, oral, Daily, Rosa Willoughby PA-C, 5 mcg at 11/07/24 0900 melatonin tablet 5 mg, 5 mg, oral, Nightly PRN, Debbie Luna CNP methocarbamol (Robaxin) tablet 750 mg, 750 mg, oral, 4x daily, Rosa Willoughby PA-C, 750 mg at 11/07/24 0856 metoclopramide (Reglan) tablet 10 mg, 10 mg, oral, Daily PRN, Debbie Luna CNP, 10 mg at 11/06/24 0933 [START ON 11/08/2024] metoprolol succinate XL (Toprol-XL) 24 hr tablet 25 mg, 25 mg, oral, Daily, Christina Rodriguez CNP mirtazapine (Remeron) tablet 45 mg, 45 mg, oral, Nightly, Rosa Willoughby PA-C, 45 mg at 11/06/24 210 naloxone (Narcan) injection 0.1 mg, 0.1 mg, intravenous, PRN, Timothy Dee MD ondansetron HCl (PF) (Zofran) injection 4 mg, 4 mg, intravenous, q8h PRN, Timothy Dee MD pantoprazole (ProtoNix) EC tablet 40 mg, 40 mg, oral, BID AC, Rosa Willoughby PA-C, 40 mg at 11/07/24 0608 polyethylene glycol (Glycolax) packet 17 g, 17 g, oral, Daily, LISA Flaherty, 17 g at 11/07/24 0855 potassium chloride CR (Klor-Con M20) ER tablet 20 mEq, 20 mEq, oral, q1h PRN, Rosa Willoughby PA-C,20 mEq at 11/05/24 1134 potassium chloride CR (Klor-Con M20) ER tablet 20 mEq, 20 mEq, oral, q1h PRN, Rosa Willoughby PA-C prochlorperazine (Compazine) injection 10 mg, 10 mg, intravenous, Once, Janet Soto MD rosuvastatin (Crestor) tablet 40 mg, 40 mg, oral, Nightly, Mauricio Garcia MD sennosides-docusate sodium (Kadie-Colace) 8.6-50 mg per tablet 1 tablet, 1 tablet, oral, Nightly PRN, Rsoa Willoughby PA-C, 1 tablet at 11/06/24 0933 [CANCELED] Insert peripheral IV, , , Once AND [CANCELED] Saline lock IV, , , Once AND sodium chloride flush 10 mL, 10 mL, intravenous, q8h PRN, Debbie Luna, BEEF SPECIALIST sucralfate (Carafate) tablet 1 g, 1 g, oral, Before meals & nightly, Rosa Willoughby PA-C, 1 g at 11/07/24 0856 topiramate (Topamax) tablet 100 mg, 100 mg, oral, BID, Rosa Willoughby PA-C, 100 mg at 11/07/24 0900 traZODone (Desyrel) tablet 100 mg, 100 mg, oral, Nightly, Rosa Willoughby PA-C, 100 mg at 11/06/24 2106 trimethobenzamide (Tigan) injection 200 mg, 200 mg, intramuscular, q6h PRN, Debbie Luna, BEEF SPECIALIST, 200 mg at 11/03/24 0018 verapamil (Calan) tablet 40 mg, 40 mg, oral, q8h TANIA, Marie Alejandro MD, 40 mg at 11/07/24 0657 * Michael Dunn MD - 11/07/2024 6:36 AM EDT [facility] Vascular Surgery DAILY PROGRESS NOTE Subjective Patient seen and examined while sitting at chair. No acute events overnight as per RN. Endorses continued pain to her right groin, fairly controlled on medication, otherwise reports feeling well. Denies fever, chest pain or shortness of breath. Stable Hgb 9.0 this AM from 8.8 Objective Vitals: Vitals: 11/07/24 0450 BP: (!) 114/49 Pulse: 93 Resp: 10 Temp: 36.4 ??C (97.5 ??F) SpO2: 100% I/O last 3 completed shifts: In: 1720.7 (20.3 mL/kg) [P.O.:1600; IV Piggyback:1] Out: 4080 (48.1 mL/kg) [Urine:4080 (1.3 mL/kg/hr)] Weight: 84.8 kg I/O this shift: In: 1301.2 Out: 1240 [Urine:1240] Physical Exam Vitals reviewed. Cardiovascular: Rate and Rhythm: Normal rate and regular rhythm. Comments: 2+ DP 1+ PT Pulmonary: Effort: Pulmonary effort is normal. No respiratory distress. Abdominal: General: There is no distension. Tenderness: There is no abdominal tenderness. Musculoskeletal: Right lower leg: No edema. Left lower leg: No edema. Skin: General: Skin is warm. Capillary Refill: Capillary refill takes less than 2 seconds. Comments: Right groin with ecchymosis, soft and compressible.No appreciable hematoma or pulsatile mass Incision clean and dry with sterile-strip in place Neurological: General: No focal deficit present. Mental Status: She is alert and oriented to person, place, and time. Labs: Results from last 7 days Lab Units 11/06/24 0550 11/05/24 0901 11/05/24 0348 11/05/24 0054 11/04/24201211/04/24 1338 11/04/24 0505 11/03/24 1834 11/03/24 1323 11/03/24 0446 WBC AUTO 10*3/uL 3.50* -- 3.54* -- -- -- 3.79* -- 7.60 6.23 HEMOGLOBIN g/dL 8.8* 9.4* 8.6* 8.5* 9.0* < > 8.0* < > 9.0* 9.5* HEMATOCRIT % 26.6* 27.5* 25.5* 24.9* 26.7* < > 23.7* < > 26.7* 28.7* PLATELETS AUTO 10*3/uL 185 -- 177 -- -- -- 185 -- 253 248 < > = values in this interval not displayed. Results from last 7 days Lab Units 11/07/24 0450 11/06/24 0550 11/05/24 0348 11/04/24201611/04/24 1338 SODIUM mmol/L 139 139 139 137 135* POTASSIUM mmol/L 3.9 3.9 3.6 4.0 4.2 CO2 mmol/L 28 27 28 27 24 BUN mg/dL 14 12 11 14 13 CREATININE mg/dL 0.52* 0.61 0.48* 0.48* 0.61 Results from last 7 days Lab Units 11/03/24 0007 INR 1.17* Medications: aspirin, 81 mg, oral, Daily atorvastatin, 80 mg, oral, Nightly clopidogrel, 75 mg, oral, Daily enoxaparin, 30 mg, subcutaneous, BID escitalopram, 20 mg, oral, Daily fentaNYL, 1 patch, transdermal, q72h And fentaNYL, 1 patch, transdermal, q72h hydrocortisone, 10 mg, oral, Daily insulin lispro, 0-5 Units, subcutaneous, TID with meals And insulin lispro, 0-4 Units, subcutaneous, Nightly levothyroxine, 75 mcg, oral, Daily before breakfast lidocaine, 1 patch, topical (top), q24h liothyronine, 5 mcg, oral, Daily methocarbamol, 750 mg, oral, 4x daily metoprolol succinate XL, 12.5 mg, oral, Daily mirtazapine, 45 mg, oral, Nightly pantoprazole, 40 mg, oral, BID AC polyethylene glycol, 17 g, oral, Daily prochlorperazine, 10 mg, intravenous, Once sucralfate, 1 g, oral, Before meals & nightly topiramate, 100 mg, oral, BID traZODone, 100 mg, oral, Nightly verapamil, 40 mg, oral, q8h TANIA Adult Cyclic 3-in-1 TPN, 2,300 mL, Last Rate: 159 mL/hr at 11/07/24 0606 Imaging: Cardiac catheterization PROCEDURE PHYSICIAN: Mitchell Agustin MD Clinical Presentation: 34 y.o. Female with history of hypertension, hyperlipidemia, asthma, RICHAR, hypothyroidism, GERD, IBS, DM2, median arcuate ligament syndrome s/p celiac plexus block and then MALS release, morbid obesity s/p sleeve gastrectomy, extensive chronic adhesions and recurrent obstructions, gastroparesis s/p J-tube and removal d/t infection, failure to thrive and now on TPN presents a direct admission from [facility] with chief complaint of chest pain. She is diagnosed with NSTEMI. She had coronary angiogram yesterday but it could not be completed due to radial artery vasospasm. She is now presenting for a repeat coronary angiogram with femoral access. Final Impression: 1) Coronary angiogram and IVUS demonstrate focal SCAD (Type 3 SCAD) in the mid LAD. Since there is good coronary artery blood flow and the SCAD is non-flow limiting, medical therapy is recommended Plan: 1) optimal med therapy for SCAD 2) Aspirin and plavix DAPT; can finish Plavix in 1 to 3 months and continue lifelong aspirin 81 mg daily 3) Lifelong beta-reece is recommended for prevention of recurrent SCAD Procedures Performed: coronary angiogram, IVUS LAD, conscious sedation 49 min, ultrasound guidance for vascular access Procedure Description: The patient was brought to the cardiac catheterization lab in a fasting state. Informed written consent was obtained. she was prepped and draped in usual sterile fashion over the bilateral groins. Time-out was performed. she was given Versed and fentanyl for sedation. 1% lidocaine was infiltrated over the right femoral artery. A 5-Iranian Terumo sheath was placed in right femoral artery. Limited femoral angiogram showed adequate placement in the right common femoral artery. Coronary angiogram was performed with a JL4 to engage the left main and a JR4 to engage the RCA. Coronary angiogram was performed in multiple orthogonal views. At this time, it was apparent that the mid LAD had intermediate stenosis. I decided to proceed with PCI. Heparin anticoagulation was used for this procedure. ACT was maintained at >250 seconds. A 5 Iranian Cordis XB 3.0 guide was engaged to the left main. I decided to proceed with IVUS. I then advanced a Runthrough wire to the distal left anterior descending. Next, I advanced a Clinithink IVUS catheter. IVUS imaging was performed and automated pullback was performed. Based on IVUS, we identified focal SCAD (type 3) with intramural hematoma. All catheters and wires were removed. The right femoral sheath will be removed once ACT is within range and manual pressure will be applied to obtain hemostasis. Specimens Removed: None Complications: None Coronary Angiogram: Left main: large trifurcating left main which is patent LAD: the LAD is a large vessel the mid segment of the LAD has a focal 40 to 50% stenosis. This area was further interrogated with IVUS. IVUS imaging showed evidence SCAD with intramural hematoma in a focal segment. Ramus: Patent LCX: normal; large and dominant left circumflex coronary artery RCA: small, nondominant vessel with diffuse tapering throughout the mid segment with very small caliber Cardiac catheterization PROCEDURE PHYSICIAN: Wali Collins MD Clinical Presentation: 34 y.o. 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 The MLA by IVUS was 2.9 mm2 2) Non-significant iFR of 0.92 and 0.93 Recommendations: 1) Continued medical management of non-flow limiting coronary dissection with addition of calcium antagonist for possible coronary spasm at the site of dissection Procedures Performed: coronary angiography, intravascular ultrasound LAD, iFR determination Omni guidewire, conscious sedation (see attached sheet for details), ultrasound guidance for vascular access Procedure Description: Due to recurrent chest pain and increase in troponin values the patient was brought to the cardiac catheterization lab . Informed written consent was obtained. she was prepped and draped in usual sterile fashion. Time-out was performed. she was given Versed and fentanyl for sedation. 1% lidocaine was infiltrated over the right femoral artery. A 6-Iranian sheath was placed in right femoral artery. Coronary angiography was performed with a JL4 and then repeated after IC nitroglycerin 50 mcg x 2. At this time, it was apparent that the LAD had a moderate stenosis and IVUS and iFR were performed. Heparin anticoagulation was used for this procedure. ACT was maintained at >250 seconds. A 6 Iranian xb3 was engaged to the Lmain. I then advanced a 0.014 guidewire to the distal left anterior descending. IVUS imaging was performed with a Refinity catheter after additional IC nitroglycerin and IV nitroglycerin Next, an Omni wire was placed and an iFR performed x2 after normalizing pressures. After completion of the procedure all catheters and wires were removed. The right femoral sheath was removed and manual pressure was applied to obtain hemostasis. Specimens Removed: None Complications: None Coronary Angiogram: Left main: Normal LAD: In the mid vessel there is an area of myocardial bridging followed by a discrete angiographic stenosis. The entire segment increased in diameter with IV nitroglycerin. On the delayed image there is persistence of contrast along the lateral wall of the LAD in a linear fashion consistent with but not diagnostic for a dissection flap LCX: Normal RCA: not imaged. Was imaged one and two days prior Intravascular ultrasound: In the mid vessel there is an atherosclerotic plaque with a MLA of 2.9 mm2 Distal to this the vessel is 3 mm in diameter. At the site of plaque there is a discrete dissection. Before the plaque there is myocardial bridging with some dissection of the intima evident Vasc Us Lower Extremity Pseudoaneurysm Duplex Right Narrative: Procedure: The groin area was evaluated with ultrasound. This involved evaluation of theadjacent vessels using real-time ultrasound, color and spectral Doppler. Evaluation for the length and width of the neck supplying the pseudoaneurysm when pseudoaneurysm is present. Impression: Right: No evidence of pseudoaneurysm. Multiphasic Doppler signals and no significant spectral Doppler or color flow disturbances noted in Common femoral 94/10 cm/sec, Deep femoral 60/9 cm/sec, Proximal superficial femoral 131/15cm/sec artery. Common femoral and proximal femoral vein compressed and presented with phasic spectral Doppler signals. Assessment/Plan Juan Kong is a 34 y.o. White female with expanding R groin hematoma s/p cardiac catheterization procedure. She is s/p hematoma evaluation and repair of pseudoaneurysm on 11/02. GONSALO drain removed 11/05. No acute issues. Continue to monitor H/H Remains stable 9.0 this AM Continue Q4H neurovascular heck On DAPT and DVT ppx Apply ice pack to the groin site for 15 min every 4 hours Recommend tylenol along with ice pack for pain control of the groin. Please avoid narcotics Rest of care per primary Vascular Surgery will sign off as the Hospitalist Team is assuming primary care. Please reach out for any questions or concerns. We will continue to follow peripherally Michael Dunn MD General Surgery PGY-1 For non-urgent questions, Epic Chat may be used 0600 - 1800, M-F. For urgent concerns, please call [phone], or ask the refinery operator vapor recovery unit to connect you to the on-publicity person. For after-hours concerns, please page [phone], or ask the refinery operator vapor recovery unit to connect you to the on-publicity person. Cosigned by Dominic Chappell DO at 11/07/2024 6:38 PM EDT Associated attestation - Dominic Chappell DO - 11/07/2024 6:38 PM EDT By using the attestations below, the signing clinician agrees that I have read and verify that thedocumentation has been personally reviewed by me and ensure that the documentation accurately reflects the encounter. GC: I personally saw this patient on the day of the encounter, performed the paula portion(s) of the service and participated in the management and confirm the resident's documentation. Please note there may be an additional personal documentation from me. Additional Comments: * Mateusz Keller, PT - 11/06/2024 3:29 PM EDT Physical Therapy Physical Therapy Evaluation Patient Name: Juan Kong : 1990 Today's Date: 11/06/2024 Start Time: 1503 Stop Time: 1515 Time Calculation (min): 12 min PT Evaluation Time Entry PT Evaluation (Low) Time Entry: 12 General Subjective: RN approved PT session and OOB activity this date. In bed upon arrival, agreeable to session. Upon completion, patient left in the chair with call light within reach, RN aware Patient Summary: Patient is a 34 y/o female presenting from [facility] 10/30/24 with chest pain and elevated troponin. Underwent heart cath x2 this admission with complications including R groin hematoma nows/p hematoma evacuation and repair of pseudoaneurysm on 11/02/24. PT Diagnosis: Impaired activity tolerance. Patient reports that side from a sore R groin, she is moving fine and hasn't required any assistance for bed mobility or ambulating around the room. No skilled PT needs, PT will sign off. Problem List[1] Medical History[2] Surgical History[3] Precautions Precautions Medical Precautions: telemetry, costello Pain Pain Assessment Pain Assessment: 0-10 Pain Score: 7 Pain Type: Acute pain Pain Location: Groin Pain Orientation: Right Cognition Cognition Overall Cognitive Status: Within Functional Limits Arousal/Alertness: Appropriate responses to stimuli Orientation Level: Oriented X4 Following Commands: Follows all commands and directions without difficulty Safety Judgment: Good awareness of safety precautions General Assessment General Assessment Hearing: Intact Hand Dominance: Right Home Living Home Living Type of Home: House Lives With: Other (Comment) (Lives with 3 minor children) Home Adaptive Equipment: None Home Layout: Two level (Bedroom 2nd level, bathroom on main level) Home Access: Stairs to enter without rails Entrance Stairs-Rails: None Entrance Stairs-Number of Steps: 2 Bathroom Shower/Tub: Tub/shower unit Bathroom Toilet: Standard Bathroom Equipment: None Prior Level of Function Prior Function Level of [place]: Independent with ADLs and functional transfers, Independent with homemaking with ambulation Prior Functional Mobility: Independent without device ADL Assistance: Independent Homemaking Assistance: Independent Vision Basic Assessment Vision - Basic Assessment Current Vision: No visual deficits Vision - Complex General Assessments Activity Tolerance Endurance: Stage III Sensation Light Touch: Partial deficits in the RLE (Reports mild tingling/numbness down through mid thigh from groin) Coordination Movements are Fluid and Coordinated: Yes Postural Control Postural Control: Within Functional Limits Static Sitting Balance Static Sitting-Balance Support: Feet supported Static Sitting-Level of Assistance: Independent Dynamic Sitting Balance Dynamic Sitting-Balance Support: Right upper extremity supported, Left upper extremity supported, Feet supported Dynamic Sitting-Balance: Forward lean, Lateral lean Dynamic Sitting Balance-Level of Assistance: Independent Static Standing Balance Static Standing-Balance Support: No upper extremity supported Static Standing-Level of Assistance: Independent Dynamic Standing Balance Dynamic Standing-Balance Support: No upper extremity supported Dynamic Standing Balance-Level of Assistance: Distant supervision Functional Assessments Bed Mobility Bed Mobility: Yes Bed Mobility 1 Bed Mobility From 1: Supine Bed Mobility Type 1: To Bed Mobility to 1: Short sit Level of Assistance 1: Independent Bed Mobility Comments 1: HOB elevated ~45 degrees Transfers Transfer: Yes Transfer 1 Technique 1: Sit to stand, Stand to sit (From EOB as well as from bedside chair) Transfer Device 1: none Transfer Level of Assistance 1: Independent Trials/Comments 1: BUE on EOB and arm rests of the chair for support without cues from bid writer. Ambulation Ambulation: Yes Ambulation 1 Surface 1: Level tile Device 1: No device Assistance 1: Distant supervision Quality of Gait 1: Mild increased postural sway during changes of direction without LOB or significant instability. Otherwise no specific gait abnormalities Comments/Distance (ft) 1: 35 ft - politely declined further ambulation into the hallway preferring to stay within her room. Extremity Assessments RUE Assessment RUE Assessment: Within Functional Limits LUE Assessment LUE Assessment: Within Functional Limits RLE Assessment RLE Assessment: Within Functional Limits LLE Assessment LLE Assessment: Within Functional Limits Outcome Assessments 6 Clicks (Mobility) Help from another person turning from your back to your side while in a flat bed without using bedrails: None Help from another person moving from lying on your back to sitting on the side of a flat bed without using bedrails: None Help from another person moving to and from a bed to a chair (including a wheelchair): None Help from another person standing up from a chair using your arms (e.g. wheelchair or bedside chair): None Help from another person to walk in hospital room: A little Help from another person climbing 3-5 steps with a railing: A little Mobility 6 Clicks T-Score: 22 Assessment/Plan PT Assessment Impairments: Decreased mobility PT Assessment: Patient is a 34 y/o female presenting with mildly impaired activity tolerance, otherwise independent for all basic mobility without further skilled acute PT needs. PT to sign off at this time. Prognosis: Good Evaluation/Treatment Tolerance: Patient tolerated treatment well Medical Staff Made Aware: Yes Plan PT Plan: No skilled PT No Skilled PT: No acute PT goals identified PT Frequency: One time visit PT Discharge Recommendations: Patient is able to return to prior living environment Equipment Recommended: none PT - Discharge Recommendations Placed: Yes PT Goals Multi-Disciplinary Problems (from Physical Therapy) Active Problems Not on file Resolved Problems Problem: PT Misc Start Date: 11/06/24, Resolve Date: 11/06/24 Goal Start Date Expected End Date End Date Patient to complete PT evaluation for appropriate education and discharge planning (RESOLVED) 11/06/24 11/06/24 11/06/24 [1] Patient Active Problem List Diagnosis Bacteremia Hypothyroidism Morbid obesity (CMS/HCC) GERD (gastroesophageal reflux disease) Sepsis due to Klebsiella (CMS/HCC) Sepsis due to Enterococcus (CMS/HCC) Gastroparesis Chronic pain syndrome MALT (mucosa associated lymphoid tissue) History of adrenal insufficiency Acquired hypothyroidism Chest pain Type 2 diabetes mellitus without complication, without long-term current use of insulin (CMS/HCC) Primary hypertension Other hyperlipidemia Asthma IBS (irritable bowel syndrome) Median arcuate ligament syndrome S/P laparoscopic sleeve gastrectomy Protein calorie malnutrition Prolonged Q-T interval on ECG NSTEMI (non-ST elevated myocardial infarction) (CMS/HCC) Spontaneous dissection of coronary artery Hematoma [2] No past medical history on file. [3] No past surgical history on file. * Kaye Craig, RD - 11/06/2024 1:39 PM EDT Adult Nutrition Assessment: Name: Juan Kong Date: 1990 Date of Visit: 11/06/24 Admission Dx: Chest pain [R07.9] Hematoma [T14.8XXA] Reason for assessment: follow up Information obtained from: patient, medical record, physician, and [facility] PMH: HTN, HLD, asthma, RICHAR, hypothyroidism, GERD, IBS, PCOS, median arcuate ligament syndrome s/p celiac plexus block (2022), s/p MALS release (02/2023), morbid obesity, s/p sleeve gastrectomy, RYGP, chronic adhesions & SBO, gastroparesis, FTT, s/p JT (removed 08/17/24), chronic PN support, Hodges replaced 09/25/24 Current Medications: aspirin, 81 mg, oral, Daily atorvastatin, 80 mg, oral, Nightly clopidogrel, 75 mg, oral, Daily enoxaparin, 30 mg, subcutaneous, BID escitalopram, 20 mg, oral, Daily fentaNYL, 1 patch, transdermal, q72h And fentaNYL, 1 patch, transdermal, q72h hydrocortisone, 10 mg, oral, Daily insulin lispro, 0-5 Units, subcutaneous, TID with meals And insulin lispro, 0-4 Units, subcutaneous, Nightly levothyroxine, 75 mcg, oral, Daily before breakfast lidocaine, 1 patch, topical (top), q24h liothyronine, 5 mcg, oral, Daily methocarbamol, 750 mg, oral, 4x daily metoprolol succinate XL, 12.5 mg, oral, Daily mirtazapine, 45 mg, oral, Nightly pantoprazole, 40 mg, oral, BID AC prochlorperazine, 10 mg, intravenous, Once sucralfate, 1 g, oral, Before meals & nightly topiramate, 100 mg, oral, BID traZODone, 100 mg, oral, Nightly verapamil, 40 mg, oral, q8h TANIA Adult Cyclic 3-in-1 TPN, 2,300 mL Labs: 0 Lab Value Date/Time POCGLU 108 (H) 11/06/2024 1219 BUN 12 11/06/2024 0550 CREATININE 0.61 11/06/2024 0550 NA 139 11/06/2024 0550 K 3.9 11/06/2024 0550 PHOS 4.7 11/06/2024 0550 MG 1.9 11/06/2024 0550 HGBA1C 4.5 10/31/2024 0627 HGB 8.8 (L) 11/06/2024 0550 WBC 3.50 (L) 11/06/2024 0550 CHOL 116 (L) 10/31/2024 0627 HDL 43 10/31/2024 0627 Cl 105 CO2 27 Alk Phos 45, AST/ALT 02/09, Tbili 0.2 (10/30/24) TG 84 (10/31/24) Manganese 5.2, Copper 107, Zinc 55 (10/09/24) Vit D 25.8 (08/15/24) Allergies: Allergies[1] Nutrition Problems: Swallowing Assessment: pt denies swallowing difficulty Mouth: pt denies chewing difficulty Abdominal Assessment: Last BM 11/02/24, kadie colace prn given 0933 h/o IBS, 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 No routine or PRN bowel medications ordered at this time. Narcotic use dilaudid, norco, fentanyl prn given at allowed intervals today Nausea benadryl, tigan, reglan prn given at allowed intervals today EGD (09/29/24) no endoscopic esophageal abnormality, esophagus dilated, Isabel en Y gastrojejunostomy with gastrojejunal anastamosis characterized by healthy mucosa Vascular US mesenteric artery duplex (10/06/24) SMA no stenosis & KEELY widely patent I/O: Urine output: 1.7 ml/khg/hr Net fluid: -4.1 L Cognition: AO Feeding Skills: independent Skin Integrity: R upper leg, groin Other Factors: Chief complaint: CP, troponin 337 upon admission, s/p cardiac cath, type II SCAD Psuedoaneurysmal complication, s/p repair by vascular surgery Edema BLE nonpitting Nutrition Data/Clinical Indicators of Nutrition Status: Height: 167.6 cm (5' 5.98 ) Weight: 84.8 kg (186 lb 15.2 oz) BMI (Calculated): 30.19 Dosing wt: 85.28 kg per home infusion orders Wt Readings from Last 10 Encounters: 11/03/24 84.8 kg (186 lb 15.2 oz) 08/20/24 86.5 kg (190 lb 11.2 oz) IBW: 59.3 kg UBW: 170-180# Weight change: current wt within range of UBW Nutrition Assessment: HPN 3 days per week (MWF) via Hodges. Managed by [facility]. Supplemental IVF. PO diet regular as tolerated. Intakes variable. [place], small meals. ONS. Dextrose 200 g AA 90 g IVFE 20% 50 g Volume 2300 ml Na acetate 85 meq K acetate 85 meq Na Phos 30 mmol Mg sulfate 24 meq Ca gluconate 10 meq MVI & MTE Cu 0.2 mg Zn 3 mg Administered over 16 hr, no taper up, 3 hr taper down 11/06/24: Tolerating diet. Receiving snacks & ONS. No nutrition related questions or concerns. TPN tonight Dietary Orders (From admission, onward) Start Ordered 11/04/24 0855 Special Kitchen Request Once Comments: Please send oatmeal with brown sugar, a bagel with cream cheese, and coffee with cream and sugar. Thank you! 11/04/24 0854 11/03/24 1335 Special Kitchen Request Once Comments: Please send Old Fashioned Hot [place] entree, with a side of green beans; a side salad with mozzarella cheese, croutons, and Ranch dressing, and a Sprite. Thank you! 11/03/24 1337 11/03/24 0847 Special Kitchen Request Once Comments: Please send oatmeal with brown sugar, Rice Krispies with milk, and coffee with cream and sugar. Thank you! 11/03/24 0852 11/02/24 2236 Regular Diet Heart Healthy/HTN, CABG,Stroke, (2gNA, low fat, low cholesterol) Diet effective now Question Answer Comment Room Service? Yes Fat restriction: Heart Healthy/HTN, CABG,Stroke, (2gNA, low fat, low cholesterol) 11/02/24223411/01/24 1519 Dietary nutrition supplements Lunch; Gelatein; Lignite; 4 oz; Oral Until discontinued Comments: When diet advances Question Answer Comment Deliver with Lunch Select supplement: Gelatein Flavor Lignite Strength: 4 oz Route Oral 11/01/24 15111/01/24 1518 Dietary nutrition supplements BID (breakfast & dinner); Boost Glucose Control; Chocolate; 8 oz; Oral Until discontinued Comments: When diet advances Question Answer Comment Deliver with BID breakfast & dinner Select supplement: Boost Glucose Control Flavor: Chocolate Strength: 8 oz Route Oral 11/01/24 1519 Nutrition Risk: High Nutrition Needs: Needs based on: ideal body weight (59.3 kg) Calorie needs: 2673-4448 kcals/day based on 25-30 kcal/kg Protein needs: 59-71 g/day based on 1-1.2 g/kg Fluid needs: 1779 ml/day based on 30 ml/kg+ Nutrition Diagnosis: Inadequate oral intake related to altered GI function as evidenced by gastroparesis, failed EN ongoing Malnutrition Assessment: Per Registered Dietitian assessment and evaluation, patient does not currently meet criteria OR there is not enough information to support the diagnosis of malnutrition per the clinical criteria set by the Academy of Nutrition and Dietetics (AND) and the [place] Society of Enteral and Parenteral Nutrition (ASPEN). Treatment Plan: HPN schedule (MWF) Minor adjustments made based on current labs with plan to titrate to home order. Na Phos 30->20 mmol Continue current diet, snacks & ONS Goals: Advance TF to goal rate Weight maintenance Maintain visceral protein Nutrition-related labs (magnesium, phosphorus, BMP) wnl To reach the Clinical Dietitian, please utilize [employer] chat Wednesday-Wednesday from 8AM-4PM or call extension [phone]. For weekends (Wednesday-Wednesday) and hols, the Clinical Dietitian can be reached via pager [phone]) from 9AM-3PM. The Clinical Nutrition Department is unable to respond to [employer] chat messages on Sundays and s. [1] Allergies Allergen Reactions Codeine Nausea And Vomiting Nsaids (Non-Steroidal Anti-Inflammatory Drug) GI intolerance Adhesive Rash * Eduarda Bravo PA-C - 11/06/2024 9:03 AM EDT Images from the original note were not included. [facility] Surgical Intensive Care Unit Progress Note Chief Complaint: Critical Care Management Primary Service: Vascular Surgery Subjective: Patient seen in SICU this AM. States pain is controlled with current regimen, localizes to right groin access site. Endorses some residual CP, states this is improving. States she has not had a BM janki couple of days, although she typically is irregular at baseline. Denies SOB, abd pain, n/v, numbness/tingling in extremities. No acute events overnight per nursing. Interval History: 11/05: Patient was examined at bedside. Had several episodes of anginal pain last night, EKG not concerning for ST changes. Vasospastic angina per cardiology, she was started on verapamil. Received 1 unit of PRBC overnight. Improvement in symptoms overnight and this morning. 11/04: Patient was examined at bedside, no acute events overnight. 135ml out through GONSALO drain in thelast 24 hours. Restarted DAPT per vascular. 11/03: Hgb remain stable post op. Groin site remains soft and compressible, no evidence of expandinghematoma. GONSALO drain with minimal serosanguinous output. Hold DAPT per vascular until tomorrow 11/02: Patient went for second femoral cardiac cath due to ongoing chest pain. Developed R groin hematoma post cath. OR with vascular for hematoma evac and R pseudoaneurysm repair. Now with GONSALO drain in place at R groin site. Objective Vitals: BP: (77-139)/(44-97) 113/72 (11/03 599) Girls Systolic BP Percentile: -- Girls Diastolic BP Percentile: -- Boys Systolic BP Percentile: -- Boys Diastolic BP Percentile: -- Temp: [35.9 ??C (96.7 ??F)-36.6 ??C (97.8 ??F)] 36.6 ??C (97.8 ??F) (11/03) Temp Source: Oral (11/03) Heart Rate: [66-120] 87 (11/03 599) Resp: [7-27] 16 (11/03 599) SpO2: [94 %-100 %] 98 % (11/03 599) Height: -- Weight: [84.8 kg (186 lb 15.2 oz)] 84.8 kg (186 lb 15.2 oz) (11/03) Kris Coma Scale Score: 15 I/O last 3 completed shifts: In: 7216.8 (85.1 mL/kg) [P.O.:1060; I.V.:3136.4 (37 mL/kg); Blood:700; IV Piggyback:505.5] Out: 6980 (82.3 mL/kg) [Urine:6800 (2.2 mL/kg/hr); Drains:150; Blood:30] Weight: 84.8 kg Physical Exam Constitutional: General: She is not in acute distress. Eyes: Extraocular Movements: Extraocular movements intact. Pupils: Pupils are equal, round, and reactive to light. Cardiovascular: Rate and Rhythm: Normal rate and regular rhythm. Pulses: Normal pulses. Heart sounds: Normal heart sounds. Pulmonary: Effort: Pulmonary effort is normal. No respiratory distress. Breath sounds: Normal breath sounds. Abdominal: General: Abdomen is flat. There is no distension. Palpations: Abdomen is soft. Tenderness: There is no abdominal tenderness. Musculoskeletal: Right lower leg: No edema. Left lower leg: No edema. Skin: General: Skin is warm and dry. Capillary Refill: Capillary refill takes less than 2 seconds. Comments: Right femoral access site with dressing in place, CDI. No evidence of bleeding, hematoma,drainage. Neurological: General: No focal deficit present. Mental Status: She is alert. Labs: Recent Results Recent Results (from the past 12 hours) POCT glucose meter Collection Time: 11/02/24 8:30 PM Result Value Ref Range Glucose POC 160 (H) 70 - 105 mg/dL POCT glucose meter Collection Time: 11/02/24 10:48 PM Result Value Ref Range Glucose POC 151 (H) 70 - 105 mg/dL Protime-INR Collection Time: 11/03/24 12:07 AM Result Value Ref Range Protime 14.9 (H) 12.3 - 14.8 Seconds INR 1.17 (H) 0.90 - 1.10 Fibrinogen Collection Time: 11/03/24 12:07 AM Result Value Ref Range Fibrinogen 328 150 - 425 mg/dL Basic metabolic panel Collection Time: 11/03/24 12:07 AM Result Value Ref Range Sodium 135 (L) 136 - 145 mmol/L Potassium 4.9 3.5 - 5.1 mmol/L Chloride 110 (H) 98 - 107 mmol/L CO2 20 (L) 21 - 31 mmol/L BUN 8 7 - 25 mg/dL Creatinine 0.53 (L) 0.60 - 1.20 mg/dL Glucose 168 (H) 70 - 100 mg/dL Calcium 7.6 (L) 8.6 - 10.3 mg/dL Anion Gap 10 7 - 20 mmol/L eGFR 123.6 >60.0 mL/min/1.73m*2 BUN/Creatinine Ratio 15.1 Magnesium Collection Time: 11/03/24 12:07 AM Result Value Ref Range Magnesium 1.5 (L) 1.9 - 2.7 mg/dL Phosphorus Collection Time: 11/03/24 12:07 AM Result Value Ref Range Phosphorus 2.7 2.5 - 5.0 mg/dL CBC Collection Time: 11/03/24 12:07 AM Result Value Ref Range Auto WBC 7.71 4.00 - 10.60 10*3/uL RBC 3.26 (L) 3.80 - 5.00 10*6/uL Hemoglobin 9.7 (L) 12.0 - 15.0 g/dL Hematocrit 29.0 (L) 36.0 - 45.0 % MCV 89.0 82.0 - 98.0 fL MCH 29.8 27.0 - 33.0 pg MCHC 33.4 32.0 - 35.0 g/dL RDW 13.3 11.5 - 15.0 % Platelets 216 150 - 400 10*3/uL FIBTEM C Collection Time: 11/03/24 1:58 AM Result Value Ref Range FIBTEM C AMPLITUDE 5 MIN 12 5 - 16 mm FIBTEM C AMPLITUDE 10 MIN 13 6 - 17 mm FIBTEM C AMPLITUDE 20 MIN 14 6 - 18 mm FIBTEM C MAXIMUM CLOT FIRMNESS 15 6 - 19 mm EXTEM C Collection Time: 11/03/24 1:58 AM Result Value Ref Range EXTEM C CLOTTING TIME 51 51 - 73 s EXTEM C AMPLITUDE 5 MIN 52 33 - 52 mm EXTEM C AMPLITUDE 10 MIN 61 45 - 62 mm EXTEM C AMPLITUDE 20 MIN 67 54 - 69 mm EXTEM C MAXIMUM CLOT FIRMNESS 68 57 - 72 mm EXTEM C LYSIS INDEX 60 MIN 96 94 - 100 % EXTEM C MAXIMUM LYSIS 10 (H) 0 - 6 % HEPTEM C Collection Time: 11/03/24 1:58 AM Result Value Ref Range HEPTEM C CLOTTING TIME 168 141 - 215 s HEPTEM C AMPLITUDE 5 MIN 46 33 - 51 mm HEPTEM C AMPLITUDE 10 MIN 56 44 - 61 mm HEPTEM C AMPLITUDE 20 MIN 62 52 - 67 mm HEPTEM C MAXIMUM CLOT FIRMNESS 63 54 - 69 mm INTEM C Collection Time: 11/03/24 1:58 AM Result Value Ref Range INTEM C CLOTTING TIME 169 139 - 205 s INTEM C AMPLITUDE 5 MIN 48 36 - 54 mm INTEM C AMPLITUDE 10 MIN 57 46 - 63 mm INTEM C AMPLITUDE 20 MIN 63 53 - 68 mm INTEM C MAXIMUM CLOT FIRMNESS 63 55 - 70 mm INTEM C LYSIS INDEX 60 MIN 95 93 - 100 % INTEM C MAXIMUM LYSIS 12 (H) 0 - 7 % Basic metabolic panel Collection Time: 11/03/24 4:46 AM Result Value Ref Range Sodium 136 136 - 145 mmol/L Potassium 4.4 3.5 - 5.1 mmol/L Chloride 108 (H) 98 - 107 mmol/L CO2 22 21 - 31 mmol/L BUN 6 (L) 7 - 25 mg/dL Creatinine 0.52 (L) 0.60 - 1.20 mg/dL Glucose 170 (H) 70 - 100 mg/dL Calcium 7.9 (L) 8.6 - 10.3 mg/dL Anion Gap 10 7 - 20 mmol/L eGFR 124.2 >60.0 mL/min/1.73m*2 BUN/Creatinine Ratio 11.5 Magnesium Collection Time: 11/03/24 4:46 AM Result Value Ref Range Magnesium 2.2 1.9 - 2.7 mg/dL Phosphorus Collection Time: 11/03/24 4:46 AM Result Value Ref Range Phosphorus 3.7 2.5 - 5.0 mg/dL Calcium, ionized Collection Time: 11/03/24 4:46 AM Result Value Ref Range Calcium, Ion 1.16 1.15 - 1.33 mmol/L CBC Collection Time: 11/03/24 4:46 AM Result Value Ref Range Auto WBC 6.23 4.00 - 10.60 10*3/uL RBC 3.23 (L) 3.80 - 5.00 10*6/uL Hemoglobin 9.5 (L) 12.0 - 15.0 g/dL Hematocrit 28.7 (L) 36.0 - 45.0 % MCV 88.9 82.0 - 98.0 fL MCH 29.4 27.0 - 33.0 pg MCHC 33.1 32.0 - 35.0 g/dL RDW 13.6 11.5 - 15.0 % Platelets 248 150 - 400 10*3/uL POCT glucose meter Collection Time: 11/03/24 7:46 AM Result Value Ref Range Glucose POC 135 (H) 70 - 105 mg/dL Radiologic studies: No X-ray results found for the past [address] results found for the past 24 hours No MRI results found for the past 24 hours EKG: Encounter Date: 10/30/24 ECG 12 lead Result Value Ventricular Rate 74 Atrial Rate 74 MA Interval 138 QRS DURATION 84 QT Interval 454 QTC CALCULATION(BAZETT) 503 P [place] 54 R-[place] 41 T Wave [place] 77 Impression Normal sinus rhythm T abnormalities consider high lateral ischemia Mild ST elevation in V2 and V3 , consider acute septal injury Abnormal ECG Confirmed by Griffin Diaz ([id number]) on 11/02/2024 10:58:13 PM Assessment TThe patient is a 34 y.o. 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 Resume home PRN Marcellus 5-325 Q4H, PRN 650 mg Q8H -On home Topamax 100 mg twice daily CV: Had repeated episodes of angina yesterday, EKG not concerning for ST changes, started on verapamil 40mg BID per cardiology for vasospastic angina. 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 Then just aspirinindefinitely thereafter -may have to consider interventional therapy for the SCAD with either [place] angioplasty and/or stent placement should patient continue to have refractory angina, EKG changes, significant changes in troponin level -Monitor for refractory angina, significant EKG changes, or further increases in her troponin level -Continue home metoprolol and Lipitor -DAPT restarted -Vascular surgery consulted for right groin hematoma post cardiac catheterization on 11/02, Recommendations: - Patient taken to the OR on 11/02 for right groin hematoma evacuation pseudoaneurysm repair -Activity as tolerated Respiratory: -Incentive spirometry every 1 hour while awake FEN/GI: Gastroparesis, protein calorie malnutrition -Diet: Heart healthy diet, TPN supplementation Wednesday/Wednesday/Wednesday -Patient requires TPN supplementation given history of gastroparesis and protein calorie malnutrition via right subclavian tunneled CVC -Nutrition consulted for resuming TPN -GI: Protonix -Bowel regimen: As needed Kadie-Colace : Urinary retention -Patient reports chronic urinary retention at home requiring prior costello catheter placement -Appreciate urology assistance, costello placed for retention -Strict Is and Os MSK: Right Groin Hematoma -Activity: Up as tolerated with assistance, fall precautions -Offloading while in bed -Management of right groin hematoma per vascular surgery as above Heme/ID: -Daily labs -Abx: Not indicated Endo: Type 2 DM -Monitor blood glucose ACHS -ISS Lines: -PIV -Costello Prophylaxis: -GI: Protonix -Bowel regimen: Kadie-Colace as needed -DVT: SCDs, Lovenox 30 mg BID Other: -CODE STATUS: Full Code -Restart home meds once reconciled Cosigned by Tomasa Disla MD at 11/08/2024 11:23 AM EDT * Lisa Pena DO - 11/06/2024 8:17 AM EDT Images from the original note were not included. Cardiology Progress Note Subjective Subjective: 11/06/2024 Patient seen and examined at bedside, no acute events overnight, vital signs are stable. Chest painhas been persistently 3 or 4 out of 10, with 1 episode of 8 out of 10 yesterday morning. Patient received tramadol 50 mg and verapamil 40 mg at that time. Patient states that helped alleviate her pain. 11/05/2024 Pt seen and examined at bedside. No acute events overnight. Her chest pain feels better today with addition of verapamil. She notes some periodic c/o chest pain such as getting up to the chair. She notes ongoing right groin discomfort. Denies dyspnea, dizziness/LH, palpitation. 11/04/2024 Patient was seen and examined at bedside, no acute events overnight, vital signs are stable. She was having urinary retention yesterday, and a Costello was placed at bedside by urology. Follow-up in OP setting to workup dysfunctional voiding. Chest pain completely resolved during encounter, and patient complained of slight tenderness in the right groin region. 11/03/2024 Patient was seen and examined at bedside, overnight had pseudoaneurysmal complication in the right groin after catheterization s/p pseudoaneurysm repair by vascular surgery. Patient is doing well today, with pain downtrending from 6 to 0 out of 10. 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 11/02/2024 Patient was seen and examined at bedside, no acute events overnight, vital signs are stable. Patient was cathed yesterday and found to have type III SCAD, and later this afternoon had 7 out of 10 sharp shooting chest pain in which she was cathed, repeat coronary angiogram was done. 11/01/2024 Underwent coronary angiogram yesterday but only left coronary artery was engaged. Repeat cath todayto assess the RCA. Patient reports intermittent chest pain and lightheadedness upon standing up. Denies shortness of breath. She is getting TPN at bedside. History: Juan Kong is a 34 y.o. female w/ PMHx of HTN, HLD, asthma, RICHAR, hypothyroidism, GERD, IBS, fibromyalgia, T2DM, median arcuate ligament syndrome s/p celiac plexus block and MALS release, morbid obesity s/p sleeve gastrectomy, extensive chronic adhesions and recurrent obstructions, and gastroparesis s/p multiple infusions and J-tube C/B infection and removal who came as a direct admission from [facility] due to chest pain. Patient states that the pain started after her qD infusions for gastroparesis and characterizes as sharp and radiating to her left arm, 10 out of 10. She states that the CP was associated with dizziness, shortness of breath, nausea, and vomiting. At this time, she states that she has been receivingLR infusions w/ Benadryl and Compazine daily for the past month, and at the beginning of when she was receiving it yesterday she started feeling severe chest pain. HST trending from 337 to 129 down to 61, and BNP 77. ECG shows NSR with HR 83, and some PVCs. Repeat ECG ordered, and patient has never had a cath. Previous echocardiogram showed normal results and was completed due to concern for endocarditis due to sepsis, however patient does not remember the exact results. Patient symptoms have improved and are now a 5 out of 10, with sporadic sharp pains but general dull pain. Patient's pain is reproducible with palpitation in the left axilla, and left chest region. Objective Current Medications[1] Objective: Patient Vitals for the past 24 hrs: BP Temp Temp src Pulse Resp SpO2 11/06/24 0700 104/64 -- -- 80 12 99 % 11/06/24 0600 115/56 -- -- 71 11 100 % 11/06/24 0500 130/75 -- -- 91 16 96 % 11/06/24 0400 102/53 35.9 ??C (96.6 ??F) Temporal 70 10 97 % 11/06/24 0300 (!) 108/46 -- -- 63 11 98 % 11/06/24 0200 108/50 -- -- 72 15 99 % 11/06/24 0100 110/52 -- -- 69 12 94 % 11/06/24 0000 99/61 35.5 ??C (95.9 ??F) Temporal 64 (!) 9 95 % 11/05/24 2300 109/62 -- -- 69 10 99 % 11/05/24 2245 107/56 -- -- 68 10 100 % 11/05/24 2230 100/80 -- -- 81 19 99 % 11/05/24 2215 104/59 -- -- 63 13 100 % 11/05/24 2206 91/56 -- -- 85 11 98 % 11/05/24 2200 (!) 99/47 -- -- 64 (!) 7 97 % 11/05/242099 (!) 101/47 -- -- 66 (!) 8 97 % 11/05/242013 105/58 -- -- 78 18 99 % 11/05/24 2000 (!) 96/43 36.5 ??C (97.7 ??F) Oral 66 10 98 % 11/05/24 1900 (!) 102/49 -- -- 73 10 97 % 11/05/24 1800 102/52 -- -- 76 14 96 % 11/05/24 1700 118/65 -- -- 93 18 100 % 11/05/24 1600 112/58 36.6 ??C (97.9 ??F) Oral 79 14 100 % 11/05/24 1500 106/53 -- -- 79 15 99 % 11/05/24 1400 104/52 -- -- 72 13 100 % 11/05/24 1300 116/57 -- -- 78 12 98 % 11/05/24 1200 (!) 107/47 36.7 ??C (98.1 ??F) Oral 82 15 100 % 11/05/24 1100 109/70 -- -- 88 18 100 % 11/05/24 1000 104/50 -- -- 79 17 100 % 11/05/24 0900 113/67 -- -- 80 12 100 % Physical Examination: Physical Exam Constitutional: General: She is not in acute distress. Appearance: Normal appearance. She is normal weight. She is not ill-appearing. HENT: Head: Normocephalic and atraumatic. Nose: No congestion or rhinorrhea. Mouth/Throat: Mouth: Mucous membranes are moist. Eyes: General: No scleral icterus. Extraocular Movements: Extraocular movements intact. Conjunctiva/sclera: Conjunctivae normal. Pupils: Pupils are equal, round, and reactive to light. Cardiovascular: Rate and Rhythm: Normal rate and regular rhythm. Pulses: Normal pulses. Heart sounds: Normal heart sounds. No murmur heard. Comments: Right groin s/p pseudoaneurysm repair - tenderness with palpation, ecchymosis noted Pulmonary: Effort: Pulmonary effort is normal. No respiratory distress. Breath sounds: Normal breath sounds. No wheezing. Abdominal: General: Abdomen is flat. Bowel sounds are normal. There is no distension. Palpations: Abdomen is soft. Tenderness: There is no abdominal tenderness. There is no guarding. Musculoskeletal: General: No swelling. Right lower leg: No edema. Left lower leg: No edema. Skin: General: Skin is warm. Coloration: Skin is not jaundiced or pale. Neurological: General: No focal deficit present. Mental Status: She is alert and oriented to person, place, and time. Mental status is at baseline. Cranial Nerves: No cranial nerve deficit. Motor: No weakness. Psychiatric: Mood and Affect: Mood normal. Behavior: Behavior normal. Thought Content: Thought content normal. Judgment: Judgment normal. Relevant Lab Results Encounter Date: 10/30/24 ECG 12 lead Result Value Ventricular Rate 100 Atrial Rate 100 MA Interval 132 QRS DURATION 94 QT Interval 382 QTC CALCULATION(BAZETT) 492 P [place] 60 R-[place] 34 T Wave [place] 58 Impression Normal sinus rhythm Statement not found (1146) Abnormal ECG When compared with ECG of 02-NOV-2024 13:02, No significant change was found Confirmed by Erlin Geller ([id number]) on 11/05/2024 12:04:52 AM No results found for: CKTOTAL , CKMB , CKMBINDEX , TROPONINI Limited Echo (TTE) w/wo Limited Doppler, Color Flow, Imaging Agent, Strain, 3D, Bubble Study Result Date: 10/31/2024 1 1 [facility] Heart Station [address] [place] [address] [phone] (fax) Echocardiogram-[facility] Name: JUAN KONG Study Date: 10/31/2024 11:16 AM B/P: 106 mmHg/67 mmHg HR: 70 bpm Date of : 1990 [facility] Age: 34 year(s) Patient Room: 318 Weight: 181 lb. Gender: Female Patient Status: InPt BSA: 1.92 m2 Indication: Chest Pain, gartroparesis, limited echo to assess CP Examination: Limited Echo, Color flow imaging, Lumason Contrast Image Quality: Fair Patient Consent: Procedure explained to patient Exam Details Contrast: I.V. dose of Lumason Conclusions Left Ventricle: Global left vent ricular systolic function is at lower limits of normal. The calculated Biplane EF is 53 %. EF rangeis estimated at 50 % -55 %. Left ventricular wall thickness is normal. Regional wall motion abnormalities (see diagram). Right Ventricle: The right ventricle is normal in size. Normal right ventricular systolic function. Unable to assess right sided pressures due to lack of measurable tricuspid regurgitation. Left Atrium: The left atrium is normal in size. Pericardium: There is a minimal pericardial effusion. Overall Conclusions: Due to suboptimal imaging Lumason contrast was administered for opacification and better delineation of endocardial borders. Measurements Left Ventricle Label Value Normal Value LVDd, 2D 4.71 cm (3.9cm - 5.3cm) LVDs, 2D 2.96 cm (2.1cm - 4cm) IVSd, 2D 0.7 cm (0.6cm - 1.1cm) LVPWd, 2D 0.83 cm (0.6cm - 0.9cm) LVEF, BP 53 % (55% - 65%) LV Mass, 2D ASE 115.82 g LV Mass Index, 2D ASE 60.3 g/m?? (44g/m?? - 88.4g/m??) RWT, MM 0.35 (0 - 0.42) LVSVI, 2D 35.9 ml/m2 Aorta Label Value Normal Value AoRoot, 2D 2.5 cm (1.4cm - 3.8cm) Valvular Assessment LVOT 0.7 - 1.1 m/sec Aortic Valve 1.0 - 1.7 m/sec Mitral Valve 0.6 - 1.3 m/sec Tricuspid Valve 0.3 - 0.7 m/sec Pulmonic Valve 0.6 - 0.9 m/sec Regurgitation No No No No Findings Left Ventricle: Global left ventricular systolic function is at lower limits of normal. The calculated Biplane EF is 53 %. EF range is estimatedat 50 % -55 %. Left ventricular wall thickness is normal. Regional wall motion abnormalities (see diagram). The basal inferolateral, mid anterior, mid anteroseptal, mid inferoseptal, mid inferolateral and apical lateral left ventricular wall segments are hypokinetic. All remaining scored left ventricular wall segments are with no wall motion abnormalities. Right Ventricle: The right ventricle is normal in size. Normal right ventricular systolic function. Unable to assess right sided pressures due to lack of measurable tricuspid regurgitation. Left Atrium: The left atrium is normal in size. Right Atrium: The right atrium is normal in size. Mitral Valve: The mitral valve is normal in mobilityand thickness. No mitral regurgitation. Aortic Valve: The aortic valve is normal. No aortic valve regurgitation. Tricuspid Valve: Normal tricuspid valve. No tricuspid regurgitation. Pulmonic Valve: Normal pulmonary valve. No pulmonary regurgitation. Aorta: The aortic root exhibits normal size. Great Vessels: IVC: The IVC is not visualized. Pericardium: There is a minimal pericardial effusion. Procedure Staff Reading Group: [facility] Finisher [employer]board [employer] Plasterboard: DAVID Kearney, RDCS Ordering Physician: KY RITTER Wall Motion Scores -1 - hyperkinesia, 0 - not evaluated, 1 - normal, 2 - hypokinesia, 3 - akinesia, 4 - dyskinesia No nuclear medicine results found for the past 12 months Relevant Imaging Results CTA Abdomen Pelvis W IV Contrast Narrative: CTA ABDOMEN PELVIS W IV CONTRAST 11/04/2024 12:33 PM CLINICAL INDICATIONS: Recent hematoma. Hemoglobin is decreasing. Follow-up from recent hematoma repair. PROTOCOL: Routine CONTRAST: Omnipaque TECHNIQUE: Multidetector CT angiography axial slices of the abdomen and pelvis were obtained with IV contrast. Multiplanar reformats, MIP, and volume rendered 3-D images were generated on a separate workstation and reviewed to further define anatomy and possible pathology. All CT scans at this facility use dose modulation, iterative reconstruction, and/or weight based dosing when appropriate to reduce radiation dose to as low as reasonably achievable. COMPARISON: 08/19/2024 FINDINGS: The abdominal aorta has a normal size. The common iliac arteries normal in size. The common external and internal iliac arteries have a normal size. The right common femoral artery is patent. Visualized portion of the superficial and profunda branches are patent. There is a small bubble of air anteriorly in the right groin. A drain is noted in the soft tissues laterally. There is some higher attenuation of fluid, presumably blood abutting the drain. Please correlate with drain output. There is nonspecific soft tissue strandiness anteriorly, laterally and stenting posteriorly. The study was tailored for the arteries. Therefore no comment regarding the venous structures will be made. Liver is heterogenous but unchanged. Prior cholecystectomy. No definite change is noted involving the spleen, pancreas or adrenal glands given technical considerations. There is no hydronephrosis or renal laceration. Fecal loading suggests constipation. Not spell obstruction. Costello type catheter is noted in the urinary bladder. No free air. No free fluid. The celiac, SMA and KEELY are patent Impression: Soft tissue drain is noted in the anterior soft tissues of the right thigh. There is higher attenuation material abutting the drain and extending laterally. Presumably this represents blood products. Please correlate with drain output. Consider surveillance imaging follow-up with ultrasound. Additional findings are detailed above Electronically signed: Raegan Quinn. ECG 12 lead Normal sinus rhythm Statement not found (1146) Abnormal ECG When compared with ECG of 02-NOV-2024 13:02, No significant change was found Confirmed by Erlin Geller ([id number]) on 11/05/2024 12:04:52 AM 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, type III SCAD EKG shows NSR with HR 83 and some PVCs HST trend: 337-129-61 downtrending Cath on 11/01/2024: Coronary angiogram and IVUS demonstrate focal SCAD (Type 3 SCAD) in the mid LAD.Since there is good coronary artery blood flow and the SCAD is non-flow limiting, medical therapy is recommended Myocardial bridging of mid LAD Right Groin Hematoma, right groin pseudoaneurysm s/p repair 11/02 SCAD type III in mid LAD T2DM Morbid obesity s/p sleeve gastrectomy IBS HTN HLD RICHAR GERD Hypothyroidism Asthma H/O median arcuate ligament syndrome s/p celiac plexus block and MALS release H/O extensive chronic adhesions and recurrent obstructions Gastroparesis s/p daily infusions and J-tube C/B infection and removal Fibromyalgia PLAN Continue aspirin and Plavix Closely monitor Hgb Transfuse for hemoglobin < 8 Continue Toprol 12.5 mg We added verapamil yesterday due to c/o chest pain. CP is improving, not as often or intense. Continue current dose for 72 hours before considering uptitration Due to patient's pain, will likely need to uptitrate verapamil tomorrow at approximately 2:30 PM given the 72-hour window of improvement No objections for transfer to step-down from cardiac standpoint Rest of care per primary team Cardiology will continue following along Lisa Pena DO Internal Medicine Resident, PGY-2 [facility] 8:20 AM 11/06/24 [1] Current Facility-Administered Medications: acetaminophen (Tylenol) tablet 650 mg, 650 mg, oral, q8h PRN, Sid McQuillin, PA-C, 650 mg at 11/05/24 1633 albuterol 90 mcg/actuation inhaler 2 puff, 2 puff, inhalation, q6h PRN, Debbie Luna BEEF SPECIALIST aspirin EC tablet 81 mg, 81 mg, oral, Daily, Sid Cruz PA-C, 81 mg at 11/05/24 1021 atorvastatin (Lipitor) tablet 80 mg, 80 mg, oral, Nightly, Rosa Willoughby PA-C, 80 mg at 11/05/24 2336 clopidogrel (Plavix) tablet 75 mg, 75 mg, oral, Daily, Sid Cruz PA-C, 75 mg at 11/05/24 1021 glucose chewable tablet 24 g, 24 g, oral, q15 min PRN OR dextrose 50 % in water (D50W) syringe 25 g, 25 g, intravenous, q15 min PRN, Debbie Luna CNP, 25 g at 10/31/24 1228 diphenhydrAMINE (BENADryl) injection 12.5 mg, 12.5 mg, intravenous, q6h PRN, Ky Ritter MD, 12.5 mg at 11/06/24 0550 enoxaparin (Lovenox) syringe 30 mg, 30 mg, subcutaneous, BID, HENNY Sanon-Elroy, 30 mg at 11/05/24 2336 escitalopram (Lexapro) tablet 20 mg, 20 mg, oral, Daily, Rosa Willoughby PA-C, 20 mg at 11/05/24 1021 fentaNYL (Duragesic) 12 mcg/hr 1 patch, 1 patch, transdermal, q72h, 1 patch at 11/05/24 1739 AND fentaNYL (Duragesic) 25 mcg/hr 1 patch, 1 patch, transdermal, q72h, Timothy Dee MD, 1 patch at 11/05/24 1739 fentaNYL (Sublimaze) injection 25 mcg, 25 mcg, intravenous, q2h PRN, Timothy Dee MD, 25mcg at 11/06/24 0700 HYDROcodone-acetaminophen (Marcellus) 5-325 mg per tablet 1 tablet, 1 tablet, oral, q4h PRN, 1 tablet at 11/03/24 1011 OR HYDROcodone-acetaminophen (Marcellus) 5- 325 mg per tablet 2 tablet, 2 tablet, oral, q4h PRN, Ky Ritter MD, 2 tablet at 11/06/24 0553 hydrocortisone (Cortef) tablet 10 mg, 10 mg, oral, Daily, Debbie Luna CNP, 10 mg at 11/05/24 1022 HYDROmorphone (Dilaudid) injection 0.2 mg, 0.2 mg, intravenous, q3h PRN, Sid Cruz PA-C, 0.2 mg at 11/05/24 0638 hydrOXYzine pamoate (Vistaril) capsule 50 mg, 50 mg, oral, Nightly PRN, Debbie Luna CNP insulin lispro (HumaLOG) injection 0-5 Units, 0-5 Units, subcutaneous, TID with meals AND insulin lispro (HumaLOG) injection 0-4 Units, 0-4 Units, subcutaneous, Nightly, Rosa Willoughby PA-C levothyroxine (Synthroid, Levoxyl) tablet 75 mcg, 75 mcg, oral, Daily before breakfast, Rosa Willoughby PA-C, 75 mcg at 11/06/24 0554 liothyronine (Cytomel) tablet 5 mcg, 5 mcg, oral, Daily, Rosa Willoughby PA-C, 5 mcg at 11/05/24 1022 melatonin tablet 5 mg, 5 mg, oral, Nightly PRN, Debbie Luna CNP methocarbamol (Robaxin) tablet 750 mg, 750 mg, oral, 4x daily, Rosa Willoughby PA-C, 750 mg at 11/05/24 2335 metoclopramide (Reglan) tablet 10 mg, 10 mg, oral, Daily PRN, Debbie Luna CNP, 10 mg at 11/05/24 1833 metoprolol succinate XL (Toprol-XL) 24 hr split tablet 12.5 mg, 12.5 mg, oral, Daily, Rosa Willoughby PA-C, 12.5 mg at 11/05/24 1022 mirtazapine (Remeron) tablet 45 mg, 45 mg, oral, Nightly, Rosa Willoughby PA-C, 45 mg at 11/05/24 2336 naloxone (Narcan) injection 0.1 mg, 0.1 mg, intravenous, PRN, Timothy Dee MD ondansetron HCl (PF) (Zofran) injection 4 mg, 4 mg, intravenous, q8h PRN, Timothy Dee MD pantoprazole (ProtoNix) EC tablet 40 mg, 40 mg, oral, BID AC, Rosa Willoughby PA-C, 40 mg at 11/06/24 0601 potassium chloride CR (Klor-Con M20) ER tablet 20 mEq, 20 mEq, oral, q1h PRN, Rosa Willoughby PA-C,20 mEq at 11/05/24 1134 potassium chloride CR (Klor-Con M20) ER tablet 20 mEq, 20 mEq, oral, q1h PRN, Rosa Willoughby PA-C prochlorperazine (Compazine) injection 10 mg, 10 mg, intravenous, Once, Janet Soto MD prochlorperazine (Compazine) injection 5 mg, 5 mg, intravenous, Once PRN, Robin Luz MD sennosides-docusate sodium (Kadie-Colace) 8.6-50 mg per tablet 1 tablet, 1 tablet, oral, Nightly PRN, Rosa Willoughby PA-C, 1 tablet at 11/03/242201 [CANCELED] Insert peripheral IV, , , Once AND [CANCELED] Saline lock IV, , , Once AND sodium chloride flush 10 mL, 10 mL, intravenous, q8h PRN, Debbie Luna CNP sucralfate (Carafate) tablet 1 g, 1 g, oral, Before meals & nightly, Rosa Willoughby PA-C, 1 g at 11/05/242105 topiramate (Topamax) tablet 100 mg, 100 mg, oral, BID, Rosa Willoughby PA-C, 100 mg at 11/05/24 233 traZODone (Desyrel) tablet 100 mg, 100 mg, oral, Nightly, Rosa Willoughby PA-C, 100 mg at 11/05/24 233 trimethobenzamide (Tigan) injection 200 mg, 200 mg, intramuscular, q6h PRN, Debbie Luna, BEEF SPECIALIST, 200 mg at 11/03/24 0018 verapamil (Calan) tablet 40 mg, 40 mg, oral, q8h TANIA, Marie Alejandro MD, 40 mg at 11/06/24 0554 Cosigned by Sebastian Peña MD at 11/06/2024 6:36 PM EDT Associated attestation - Sebastian Peña MD - 11/06/2024 6:36 PM EDT By using the attestations below, the signing clinician agrees that I have read and verify that thedocumentation has been personally reviewed by me and ensure that the documentation accurately reflects the encounter. GC: I personally saw this patient on the day of the encounter, performed the paula portion(s) of the service and participated in the management and confirm the resident's documentation. Please note there may be an additional personal documentation from me. My additional comments are as follows: Patient seen and examined at bedside, agree with the excellent note below. We will continue aspirinand Plavix and will also closely monitor hemoglobin. We have also added verapamil because of chest pain which could be reflective of a combination of spasm/sudden coronary artery dissection. We would follow the response to verapamil and Toprol-XL combination Sebastian Peña MD, ScM, MSc Cardiac Student Outreach Coordinator Email: [email or web address] * Anna Etienne MD - 11/06/2024 7:38 AM EDT Images from the original note were not included. [facility] Vascular Surgery DAILY PROGRESS NOTE Subjective Patient seen and examined. No acute events overnight. Remains HDS and afebrile. Reports some pain in her groin that is stable. She did get up from the chair yesterday and reports some dizziness when up. Otherwise no acute complaints. Hb 8.8 from 9.4 from 8.6. Objective Vitals: Vitals: 11/06/24 0700 BP: 104/64 Pulse: 80 Resp: 12 Temp: SpO2: 99% I/O last 3 completed shifts: In: 1079.7 (12.7 mL/kg) [P.O.:960] Out: 5350 (63.1 mL/kg) [Urine:5330 (1.7 mL/kg/hr); Drains:20] Weight: 84.8 kg No intake/output data recorded. Physical Exam Vitals reviewed. Cardiovascular: Rate and Rhythm: Normal rate and regular rhythm. Comments: 2+ DP 1+ PT Pulmonary: Effort: Pulmonary effort is normal. No respiratory distress. Abdominal: General: There is no distension. Tenderness: There is no abdominal tenderness. Musculoskeletal: Right lower leg: No edema. Left lower leg: No edema. Skin: General: Skin is warm. Capillary Refill: Capillary refill takes less than 2 seconds. Comments: Right groin with ecchymosis, soft Steri-Strips remain intact Neurological: General: No focal deficit present. Mental Status: She is alert and oriented to person, place, and time. Labs: Results from last 7 days Lab Units 11/06/24 0550 11/05/24 0901 11/05/24 0348 11/05/24 0054 11/04/24 2013 11/04/24 1338 11/04/24 0505 11/03/24 1834 11/03/24 1323 11/03/24 0446 WBC AUTO 10*3/uL 3.50* -- 3.54* -- -- -- 3.79* -- 7.60 6.23 HEMOGLOBIN g/dL 8.8* 9.4* 8.6* 8.5* 9.0* < > 8.0* < > 9.0* 9.5* HEMATOCRIT % 26.6* 27.5* 25.5* 24.9* 26.7* < > 23.7* < > 26.7* 28.7* PLATELETS AUTO 10*3/uL 185 -- 177 -- -- -- 185 -- 253 248 < > = values in this interval not displayed. Results from last 7 days Lab Units 11/06/24 0550 11/05/24 0348 11/04/24 2017 11/04/24 1338 11/04/24 0505 SODIUM mmol/L 139 139 137 135* 140 POTASSIUM mmol/L 3.9 3.6 4.0 4.2 3.6 CO2 mmol/L 27 28 27 24 28 BUN mg/dL 12 11 14 13 9 CREATININE mg/dL 0.61 0.48* 0.48* 0.61 0.45* Results from last 7 days Lab Units 11/03/24 0007 10/30/24 1911 INR 1.17* 1.15* Medications: aspirin, 81 mg, oral, Daily atorvastatin, 80 mg, oral, Nightly clopidogrel, 75 mg, oral, Daily enoxaparin, 30 mg, subcutaneous, BID escitalopram, 20 mg, oral, Daily fentaNYL, 1 patch, transdermal, q72h And fentaNYL, 1 patch, transdermal, q72h hydrocortisone, 10 mg, oral, Daily insulin lispro, 0-5 Units, subcutaneous, TID with meals And insulin lispro, 0-4 Units, subcutaneous, Nightly levothyroxine, 75 mcg, oral, Daily before breakfast liothyronine, 5 mcg, oral, Daily methocarbamol, 750 mg, oral, 4x daily metoprolol succinate XL, 12.5 mg, oral, Daily mirtazapine, 45 mg, oral, Nightly pantoprazole, 40 mg, oral, BID AC prochlorperazine, 10 mg, intravenous, Once sucralfate, 1 g, oral, Before meals & nightly topiramate, 100 mg, oral, BID traZODone, 100 mg, oral, Nightly verapamil, 40 mg, oral, q8h TANIA Imaging: CTA Abdomen Pelvis W IV Contrast Narrative: CTA ABDOMEN PELVIS W IV CONTRAST 11/04/2024 12:33 PM CLINICAL INDICATIONS: Recent hematoma. Hemoglobin is decreasing. Follow-up from recent hematoma repair. PROTOCOL: Routine CONTRAST: Omnipaque TECHNIQUE: Multidetector CT angiography axial slices of the abdomen and pelvis were obtained with IV contrast. Multiplanar reformats, MIP, and volume rendered 3-D images were generated on a separate workstation and reviewed to further define anatomy and possible pathology. All CT scans at this facility use dose modulation, iterative reconstruction, and/or weight based dosing when appropriate to reduce radiation dose to as low as reasonably achievable. COMPARISON: 08/19/2024 FINDINGS: The abdominal aorta has a normal size. The common iliac arteries normal in size. The common external and internal iliac arteries have a normal size. The right common femoral artery is patent. Visualized portion of the superficial and profunda branches are patent. There is a small bubble of air anteriorly in the right groin. A drain is noted in the soft tissues laterally. There is some higher attenuation of fluid, presumably blood abutting the drain. Please correlate with drain output. There is nonspecific soft tissue strandiness anteriorly, laterally and stenting posteriorly. The study was tailored for the arteries. Therefore no comment regarding the venous structures will be made. Liver is heterogenous but unchanged. Prior cholecystectomy. No definite change is noted involving the spleen, pancreas or adrenal glands given technical considerations. There is no hydronephrosis or renal laceration. Fecal loading suggests constipation. Not spell obstruction. Costello type catheter is noted in the urinary bladder. No free air. No free fluid. The celiac, SMA and KEELY are patent Impression: Soft tissue drain is noted in the anterior soft tissues of the right thigh. There is higher attenuation material abutting the drain and extending laterally. Presumably this represents blood products. Please correlate with drain output. Consider surveillance imaging follow-up with ultrasound. Additional findings are detailed above Electronically signed: Raegan Quinn. ECG 12 lead Normal sinus rhythm Statement not found (1146) Abnormal ECG When compared with ECG of 02-NOV-2024 13:02, No significant change was found Confirmed by Erlin Geller (80) on 11/05/2024 12:04:52 AM Assessment/Plan Juan Kong is a 34 y.o. White female with expanding R groin hematoma s/p cardiac catheterization procedure. She is s/p hematoma evaluation and repair of pseudoaneurysm on 11/02. GONSALO drain removed 11/05. No acute issues. OK for transfer out of ICU from our standpoint Continue to monitor H/H Remains stable Continue Q4H neurovascular heck On DAPT and DVT ppx Apply sandbag and ice pack to the groin site while patient remains in a supine position Rest of care per primary Will continue to follow Anna Etienne MD General Surgery PGY-4 For non-urgent questions, [employer] Chat may be used 0600 - 1800, M-F. For urgent concerns, please call [phone], or ask the refinery operator vapor recovery unit to connect you to the on-publicity person. For after-hours concerns, please page [phone], or ask the refinery operator vapor recovery unit to connect you to the on-publicity person. Cosigned by Dominic Chappell DO at 11/06/2024 1:53 PM EDT * Mikayla Jennings PA-C - 11/05/2024 2:14 PM EDT Images from the original note were not included. [facility] Vascular Surgery DAILY PROGRESS NOTE Subjective Patient seen and evaluated at bedside. VSS. Continues to endorse right groin pain. Some improvementin chest pain with addition of verapamil last night. Hemoglobin stable at 9.4 today. GONSALO drain removed at bedside. Denies shortness of breath, fever, chills, abdominal pain Objective Vitals: Vitals: 11/05/24 1400 BP: 104/52 Pulse: 72 Resp: 13 Temp: SpO2: 100% I/O last 3 completed shifts: In: 3441.2 (40.6 mL/kg) [P.O.:500; Blood:422.9; IV Piggyback:200] Out: 5930 (69.9 mL/kg) [Urine:5830 (1.9 mL/kg/hr); Drains:100] Weight: 84.8 kg I/O this shift: In: 1079.7 [P.O.:960] Out: 1850 [Urine:1850] Physical Exam Vitals reviewed. Cardiovascular: Rate and Rhythm: Normal rate and regular rhythm. Comments: 2+ DP 1+ PT Pulmonary: Effort: Pulmonary effort is normal. No respiratory distress. Abdominal: General: There is no distension. Tenderness: There is no abdominal tenderness. Musculoskeletal: Right lower leg: No edema. Left lower leg: No edema. Skin: General: Skin is warm. Capillary Refill: Capillary refill takes less than 2 seconds. Comments: Right groin with increased ecchymosis, nonconcerning Right groin is soft and without pulsatile mass Steri-Strips remain intact Neurological: General: No focal deficit present. Mental Status: She is alert and oriented to person, place, and time. Labs: Results from last 7 days Lab Units 11/05/24 0901 11/05/24 0348 11/05/24 0054 11/04/24201211/04/24 1338 11/04/24 0505 11/03/24 1834 11/03/24 1323 11/03/24 0446 11/03/24 0007 WBC AUTO 10*3/uL -- 3.54* -- -- -- 3.79* -- 7.60 6.23 7.71 HEMOGLOBIN g/dL 9.4* 8.6* 8.5* 9.0* 7.9* 8.0* < > 9.0* 9.5* 9.7* HEMATOCRIT % 27.5* 25.5* 24.9* 26.7* 23.9* 23.7* < > 26.7* 28.7* 29.0* PLATELETS AUTO 10*3/uL -- 177 -- -- -- 185 -- 253 248 216 < > = values in this interval not displayed. Results from last 7 days Lab Units 11/05/24 03411/04/24201611/04/24 1338 11/04/24 0505 11/03/24 0446 SODIUM mmol/L 139 137 135* 140 136 POTASSIUM mmol/L 3.6 4.0 4.2 3.6 4.4 CO2 mmol/L 28 27 24 28 22 BUN mg/dL 11 14 13 9 6* CREATININE mg/dL 0.48* 0.48* 0.61 0.45* 0.52* Results from last 7 days Lab Units 11/03/24 0007 10/30/24 1911 INR 1.17* 1.15* Medications: aspirin, 81 mg, oral, Daily atorvastatin, 80 mg, oral, Nightly clopidogrel, 75 mg, oral, Daily enoxaparin, 30 mg, subcutaneous, BID escitalopram, 20 mg, oral, Daily fentaNYL, 1 patch, transdermal, q72h hydrocortisone, 10 mg, oral, Daily insulin lispro, 0-5 Units, subcutaneous, TID with meals And insulin lispro, 0-4 Units, subcutaneous, Nightly levothyroxine, 75 mcg, oral, Daily before breakfast liothyronine, 5 mcg, oral, Daily methocarbamol, 750 mg, oral, 4x daily metoprolol succinate XL, 12.5 mg, oral, Daily mirtazapine, 45 mg, oral, Nightly pantoprazole, 40 mg, oral, BID AC prochlorperazine, 10 mg, intravenous, Once sucralfate, 1 g, oral, Before meals & nightly topiramate, 100 mg, oral, BID traZODone, 100 mg, oral, Nightly verapamil, 40 mg, oral, q8h TANIA Adult Cyclic 3-in-1 TPN, 2,300 mL, Last Rate: 79.8 mL/hr at 11/05/24 1300 Imaging: CTA Abdomen Pelvis W IV Contrast Narrative: CTA ABDOMEN PELVIS W IV CONTRAST 11/04/2024 12:33 PM CLINICAL INDICATIONS: Recent hematoma. Hemoglobin is decreasing. Follow-up from recent hematoma repair. PROTOCOL: Routine CONTRAST: Omnipaque TECHNIQUE: Multidetector CT angiography axial slices of the abdomen and pelvis were obtained with IV contrast. Multiplanar reformats, MIP, and volume rendered 3-D images were generated on a separate workstation and reviewed to further define anatomy and possible pathology. All CT scans at this facility use dose modulation, iterative reconstruction, and/or weight based dosing when appropriate to reduce radiation dose to as low as reasonably achievable. COMPARISON: 08/19/2024 FINDINGS: The abdominal aorta has a normal size. The common iliac arteries normal in size. The common external and internal iliac arteries have a normal size. The right common femoral artery is patent. Visualized portion of the superficial and profunda branches are patent. There is a small bubble of air anteriorly in the right groin. A drain is noted in the soft tissues laterally. There is some higher attenuation of fluid, presumably blood abutting the drain. Please correlate with drain output. There is nonspecific soft tissue strandiness anteriorly, laterally and stenting posteriorly. The study was tailored for the arteries. Therefore no comment regarding the venous structures will be made. Liver is heterogenous but unchanged. Prior cholecystectomy. No definite change is noted involving the spleen, pancreas or adrenal glands given technical considerations. There is no hydronephrosis or renal laceration. Fecal loading suggests constipation. Not spell obstruction. Costello type catheter is noted in the urinary bladder. No free air. No free fluid. The celiac, SMA and KEELY are patent Impression: Soft tissue drain is noted in the anterior soft tissues of the right thigh. There is higher attenuation material abutting the drain and extending laterally. Presumably this represents blood products. Please correlate with drain output. Consider surveillance imaging follow-up with ultrasound. Additional findings are detailed above Electronically signed: Raegan Quinn. ECG 12 lead Normal sinus rhythm Statement not found (1146) Abnormal ECG When compared with ECG of 02-NOV-2024 13:02, No significant change was found Confirmed by Erlin Geller ([id number]) on 11/05/2024 12:04:52 AM Assessment/Plan Juan Kong is a 34 y.o. White female with expanding R groin hematoma s/p cardiac catheterization procedure. She is s/p hematoma evaluation and repair of pseudoaneurysm. Patient is stable s/p right groin pseudoaneurysm repair and hematoma evacuation We will move patient to stepdown status GONSALO drain removed today at bedside Continue to monitor H/H Stable at 9.4 today, has been uptrending Continue Q4H neurovascular heck Ok to restart DAPT per cardiology Ok to start DVT prophylaxis Apply sandbag and ice pack to the groin site while patient remains in a supine position Rest of care per primary Will continue to follow Mikayla Jennnigs PA-C Vasular Surgery and Wound Care x [phone] For non-urgent questions, [employer] Chat may be used 0600 - 1800, M-F. For urgent concerns, please call [phone], or ask the refinery operator vapor recovery unit to connect you to the on-publicity person. For after-hours concerns, please page [phone], or ask the refinery operator vapor recovery unit to connect you to the on-publicity person. * Christina Rodriguez CNP - 11/05/2024 11:00 AM EDT Images from the original note were not included. Cardiology Progress Note Subjective Subjective: 11/05/2024 Pt seen and examined at bedside. No acute events overnight. Her chest pain feels better today with addition of verapamil. She notes some periodic c/o chest pain such as getting up to the chair. She notes ongoing right groin discomfort. Denies dyspnea, dizziness/LH, palpitation. 11/04/2024 Patient was seen and examined at bedside, no acute events overnight, vital signs are stable. She was having urinary retention yesterday, and a Costello was placed at bedside by urology. Follow-up in OP setting to workup dysfunctional voiding. Chest pain completely resolved during encounter, and patient complained of slight tenderness in the right groin region. 11/03/2024 Patient was seen and examined at bedside, overnight had pseudoaneurysmal complication in the right groin after catheterization s/p pseudoaneurysm repair by vascular surgery. Patient is doing well today, with pain downtrending from 6 to 0 out of 10. 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 11/02/2024 Patient was seen and examined at bedside, no acute events overnight, vital signs are stable. Patient was cathed yesterday and found to have type III SCAD, and later this afternoon had 7 out of 10 sharp shooting chest pain in which she was cathed, repeat coronary angiogram was done. 11/01/2024 Underwent coronary angiogram yesterday but only left coronary artery was engaged. Repeat cath todayto assess the RCA. Patient reports intermittent chest pain and lightheadedness upon standing up. Denies shortness of breath. She is getting TPN at bedside. History: Juan Kong is a 34 y.o. female w/ PMHx of HTN, HLD, asthma, RICHAR, hypothyroidism, GERD, IBS, fibromyalgia, T2DM, median arcuate ligament syndrome s/p celiac plexus block and MALS release, morbid obesity s/p sleeve gastrectomy, extensive chronic adhesions and recurrent obstructions, and gastroparesis s/p multiple infusions and J-tube C/B infection and removal who came as a direct admission from [facility] due to chest pain. Patient states that the pain started after her qD infusions for gastroparesis and characterizes as sharp and radiating to her left arm, 10 out of 10. She states that the CP was associated with dizziness, shortness of breath, nausea, and vomiting. At this time, she states that she has been receivingLR infusions w/ Benadryl and Compazine daily for the past month, and at the beginning of when she was receiving it yesterday she started feeling severe chest pain. HST trending from 337 to 129 down to 61, and BNP 77. ECG shows NSR with HR 83, and some PVCs. Repeat ECG ordered, and patient has never had a cath. Previous echocardiogram showed normal results and was completed due to concern for endocarditis due to sepsis, however patient does not remember the exact results. Patient symptoms have improved and are now a 5 out of 10, with sporadic sharp pains but general dull pain. Patient's pain is reproducible with palpitation in the left axilla, and left chest region. Objective Current Medications[1] Objective: Patient Vitals for the past 24 hrs: BP Temp Temp src Pulse Resp SpO2 11/05/24 1500 106/53 -- -- 79 15 99 % 11/05/24 1400 104/52 -- -- 72 13 100 % 11/05/24 1300 116/57 -- -- 78 12 98 % 11/05/24 1200 (!) 107/47 36.7 ??C (98.1 ??F) Oral 82 15 100 % 11/05/24 1100 109/70 -- -- 88 18 100 % 11/05/24 1000 104/50 -- -- 79 17 100 % 11/05/24 0900 113/67 -- -- 80 12 100 % 11/05/24 0800 106/54 36.8 ??C (98.2 ??F) Oral 73 10 100 % 11/05/24 0731 99/65 -- -- 79 12 100 % 11/05/24 0700 (!) 93/43 -- -- 62 10 99 % 11/05/24 0630 105/60 -- -- 75 13 100 % 11/05/24 0600 91/57 -- -- 60 (!) 0 100 % 11/05/24 0512 94/53 -- -- 66 -- 99 % 11/05/24 0500 (!) 96/42 -- -- 69 12 100 % 11/05/24 0400 115/63 36.6 ??C (97.8 ??F) Axillary 73 13 100 % 11/05/24 0300 96/57 -- -- 62 (!) 0 100 % 11/05/24 0200 (!) 96/47 -- -- 62 (!) 6 98 % 11/05/24 0100 91/51 -- -- 60 (!) 0 98 % 11/05/24 0000 (!) 97/46 35.5 ??C (95.9 ??F) Temporal 62 13 98 % 11/04/24 2300 101/51 -- -- 70 11 98 % 11/04/24 2200 95/57 -- -- 62 (!) 9 98 % 11/04/24 2100 99/55 -- -- 67 11 97 % 11/04/24 2000 111/61 36.5 ??C (97.7 ??F) Axillary 76 13 98 % 11/04/24 1900 106/54 -- -- 72 13 99 % 11/04/24 1800 109/55 -- -- 84 15 98 % 11/04/24 1731 117/56 -- -- 92 18 98 % 11/04/24 1700 112/71 -- -- 83 15 100 % 11/04/24 1645 -- 36.6 ??C (97.8 ??F) Oral -- -- -- 11/04/24 1600 (!) 105/49 36.7 ??C (98 ??F) Oral 78 17 97 % Physical Examination: Physical Exam Constitutional: General: She is not in acute distress. Appearance: Normal appearance. She is normal weight. She is not ill-appearing. HENT: Head: Normocephalic and atraumatic. Nose: No congestion or rhinorrhea. Mouth/Throat: Mouth: Mucous membranes are moist. Eyes: General: No scleral icterus. Extraocular Movements: Extraocular movements intact. Conjunctiva/sclera: Conjunctivae normal. Pupils: Pupils are equal, round, and reactive to light. Cardiovascular: Rate and Rhythm: Normal rate and regular rhythm. Pulses: Normal pulses. Heart sounds: Normal heart sounds. No murmur heard. Comments: Right groin s/p pseudoaneurysm repair - tenderness with palpation, ecchymosis noted Pulmonary: Effort: Pulmonary effort is normal. No respiratory distress. Breath sounds: Normal breath sounds. No wheezing. Abdominal: General: Abdomen is flat. Bowel sounds are normal. There is no distension. Palpations: Abdomen is soft. Tenderness: There is no abdominal tenderness. There is no guarding. Musculoskeletal: General: No swelling. Right lower leg: No edema. Left lower leg: No edema. Skin: General: Skin is warm. Coloration: Skin is not jaundiced or pale. Neurological: General: No focal deficit present. Mental Status: She is alert and oriented to person, place, and time. Mental status is at baseline. Cranial Nerves: No cranial nerve deficit. Motor: No weakness. Psychiatric: Mood and Affect: Mood normal. Behavior: Behavior normal. Thought Content: Thought content normal. Judgment: Judgment normal. Relevant Lab Results Encounter Date: 10/30/24 ECG 12 lead Result Value Ventricular Rate 100 Atrial Rate 100 MA Interval 132 QRS DURATION 94 QT Interval 382 QTC CALCULATION(BAZETT) 492 P [place] 60 R-[place] 34 T Wave [place] 58 Impression Normal sinus rhythm Statement not found (1146) Abnormal ECG When compared with ECG of 02-NOV-2024 13:02, No significant change was found Confirmed by Erlin Geller ([id number]) on 11/05/2024 12:04:52 AM No results found for: CKTOTAL , CKMB , CKMBINDEX , TROPONINI Limited Echo (TTE) w/wo Limited Doppler, Color Flow, Imaging Agent, Strain, 3D, Bubble Study Result Date: 10/31/2024 1 1 [facility] Heart Station [address] [id number] [phone] (fax) Echocardiogram-[facility] Name: JUAN KONG Study Date: 10/31/2024 11:16 AM B/P: 106 mmHg/67 mmHg HR: 70 bpm Date of : 1990 [facility] Age: 34 year(s) Patient Room: 3187 Weight: 181 lb. Gender: Female Patient Status: InPt BSA: 1.92 m2 Indication: Chest Pain, gartroparesis, limited echo to assess CP Examination: Limited Echo, Color flow imaging, Lumason Contrast Image Quality: Fair Patient Consent: Procedure explained to patient Exam Details Contrast: I.V. dose of Lumason Conclusions Left Ventricle: Global left vent ricular systolic function is at lower limits of normal. The calculated Biplane EF is 53 %. EF rangeis estimated at 50 % -55 %. Left ventricular wall thickness is normal. Regional wall motion abnormalities (see diagram). Right Ventricle: The right ventricle is normal in size. Normal right ventricular systolic function. Unable to assess right sided pressures due to lack of measurable tricuspid regurgitation. Left Atrium: The left atrium is normal in size. Pericardium: There is a minimal pericardial effusion. Overall Conclusions: Due to suboptimal imaging Lumason contrast was administered for opacification and better delineation of endocardial borders. Measurements Left Ventricle Label Value Normal Value LVDd, 2D 4.71 cm (3.9cm - 5.3cm) LVDs, 2D 2.96 cm (2.1cm - 4cm) IVSd, 2D 0.7 cm (0.6cm - 1.1cm) LVPWd, 2D 0.83 cm (0.6cm - 0.9cm) LVEF, BP 53 % (55% - 65%) LV Mass, 2D ASE 115.82 g LV Mass Index, 2D ASE 60.3 g/m?? (44g/m?? - 88.4g/m??) RWT, MM 0.35 (0 - 0.42) LVSVI, 2D 35.9 ml/m2 Aorta Label Value Normal Value AoRoot, 2D 2.5 cm (1.4cm - 3.8cm) Valvular Assessment LVOT 0.7 - 1.1 m/sec Aortic Valve 1.0 - 1.7 m/sec Mitral Valve 0.6 - 1.3 m/sec Tricuspid Valve 0.3 - 0.7 m/sec Pulmonic Valve 0.6 - 0.9 m/sec Regurgitation No No No No Findings Left Ventricle: Global left ventricular systolic function is at lower limits of normal. The calculated Biplane EF is 53 %. EF range is estimatedat 50 % -55 %. Left ventricular wall thickness is normal. Regional wall motion abnormalities (see diagram). The basal inferolateral, mid anterior, mid anteroseptal, mid inferoseptal, mid inferolateral and apical lateral left ventricular wall segments are hypokinetic. All remaining scored left ventricular wall segments are with no wall motion abnormalities. Right Ventricle: The right ventricle is normal in size. Normal right ventricular systolic function. Unable to assess right sided pressures due to lack of measurable tricuspid regurgitation. Left Atrium: The left atrium is normal in size. Right Atrium: The right atrium is normal in size. Mitral Valve: The mitral valve is normal in mobilityand thickness. No mitral regurgitation. Aortic Valve: The aortic valve is normal. No aortic valve regurgitation. Tricuspid Valve: Normal tricuspid valve. No tricuspid regurgitation. Pulmonic Valve: Normal pulmonary valve. No pulmonary regurgitation. Aorta: The aortic root exhibits normal size. Great Vessels: IVC: The IVC is not visualized. Pericardium: There is a minimal pericardial effusion. Procedure Staff Reading Group: [facility] Finisher Wallboard [employer] Plasterboard: DAVID Keraney, RDCS Ordering Physician: KY RITTER Wall Motion Scores -1 - hyperkinesia, 0 - not evaluated, 1 - normal, 2 - hypokinesia, 3 - akinesia, 4 - dyskinesia No nuclear medicine results found for the past 12 months Relevant Imaging Results CTA Abdomen Pelvis W IV Contrast Narrative: CTA ABDOMEN PELVIS W IV CONTRAST 11/04/2024 12:33 PM CLINICAL INDICATIONS: Recent hematoma. Hemoglobin is decreasing. Follow-up from recent hematoma repair. PROTOCOL: Routine CONTRAST: Omnipaque TECHNIQUE: Multidetector CT angiography axial slices of the abdomen and pelvis were obtained with IV contrast. Multiplanar reformats, MIP, and volume rendered 3-D images were generated on a separate workstation and reviewed to further define anatomy and possible pathology. All CT scans at this facility use dose modulation, iterative reconstruction, and/or weight based dosing when appropriate to reduce radiation dose to as low as reasonably achievable. COMPARISON: 08/19/2024 FINDINGS: The abdominal aorta has a normal size. The common iliac arteries normal in size. The common external and internal iliac arteries have a normal size. The right common femoral artery is patent. Visualized portion of the superficial and profunda branches are patent. There is a small bubble of air anteriorly in the right groin. A drain is noted in the soft tissues laterally. There is some higher attenuation of fluid, presumably blood abutting the drain. Please correlate with drain output. There is nonspecific soft tissue strandiness anteriorly, laterally and stenting posteriorly. The study was tailored for the arteries. Therefore no comment regarding the venous structures will be made. Liver is heterogenous but unchanged. Prior cholecystectomy. No definite change is noted involving the spleen, pancreas or adrenal glands given technical considerations. There is no hydronephrosis or renal laceration. Fecal loading suggests constipation. Not spell obstruction. Costello type catheter is noted in the urinary bladder. No free air. No free fluid. The celiac, SMA and KEELY are patent Impression: Soft tissue drain is noted in the anterior soft tissues of the right thigh. There is higher attenuation material abutting the drain and extending laterally. Presumably this represents blood products. Please correlate with drain output. Consider surveillance imaging follow-up with ultrasound. Additional findings are detailed above Electronically signed: Raegan Quinn. ECG 12 lead Normal sinus rhythm Statement not found (1146) Abnormal ECG When compared with ECG of 02-NOV-2024 13:02, No significant change was found Confirmed by Erlin Geller ([id number]) on 11/05/2024 12:04:52 AM 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, type III SCAD EKG shows NSR with HR 83 and some PVCs HST trend: 337-129-61 downtrending Cath on 11/01/2024: Coronary angiogram and IVUS demonstrate focal SCAD (Type 3 SCAD) in the mid LAD.Since there is good coronary artery blood flow and the SCAD is non-flow limiting, medical therapy is recommended Myocardial bridging of mid LAD Right Groin Hematoma, right groin pseudoaneurysm s/p repair 11/02 SCAD type III in mid LAD T2DM Morbid obesity s/p sleeve gastrectomy IBS HTN HLD RICHAR GERD Hypothyroidism Asthma H/O median arcuate ligament syndrome s/p celiac plexus block and MALS release H/O extensive chronic adhesions and recurrent obstructions Gastroparesis s/p daily infusions and J-tube C/B infection and removal Fibromyalgia PLAN Continue aspirin and Plavix Closely monitor Hgb Transfuse for hemoglobin < 8 Continue Toprol 12.5 mg We added verapamil yesterday due to c/o chest pain. CP is improving, not as often or intense. Continue current dose for 72 hours before considering uptitration. No objections for transfer to step-down from cardiac standpoint. Rest of care per primary team Cardiology will continue following along Discussed plan with pt, primary RN, eligibility clerk Dr. Alejandro and personal banking officer Dr. Altamirano. Christina Rodriguez, DIRECTOR OF GRADUATE MEDICAL EDUCATION-BEEF SPECIALIST [facility] [1] Current Facility-Administered Medications: acetaminophen (Tylenol) tablet 650 mg, 650 mg, oral, q8h PRN, HENNY Sanon-C Adult Cyclic 3-in-1 TPN, 2,300 mL, intravenous, Cyclic TPN, Tomasa Franks MD, Stopped at 11/05/24 1440 albuterol 90 mcg/actuation inhaler 2 puff, 2 puff, inhalation, q6h PRN, Debbie Luna CNP aspirin EC tablet 81 mg, 81 mg, oral, Daily, Sid Cruz PA-C, 81 mg at 11/05/24 1021 atorvastatin (Lipitor) tablet 80 mg, 80 mg, oral, Nightly, Rosa Willoughby PA-C, 80 mg at 11/04/24 2244 clopidogrel (Plavix) tablet 75 mg, 75 mg, oral, Daily, Sid Cruz PA-C, 75 mg at 11/05/24 1021 glucose chewable tablet 24 g, 24 g, oral, q15 min PRN OR dextrose 50 % in water (D50W) syringe 25 g, 25 g, intravenous, q15 min PRN, Debbie Luna CNP, 25 g at 10/31/24 1228 diphenhydrAMINE (BENADryl) injection 12.5 mg, 12.5 mg, intravenous, q6h PRN, Ky Ritter MD, 12.5 mg at 11/05/24 1030 enoxaparin (Lovenox) syringe 30 mg, 30 mg, subcutaneous, BID, Sid Cruz PA-C, 30 mg at 11/05/24 1021 escitalopram (Lexapro) tablet 20 mg, 20 mg, oral, Daily, Rosa Willoughby PA-C, 20 mg at 11/05/24 1021 fentaNYL (Duragesic) 25 mcg/hr 1 patch, 1 patch, transdermal, q72h, Rosa Willoughby PA-C, 1 patch at 11/03/24 1128 fentaNYL (Sublimaze) injection 25 mcg, 25 mcg, intravenous, q2h PRN, Timothy Dee MD, 25mcg at 11/05/24 1446 HYDROcodone-acetaminophen (Marcellus) 5-325 mg per tablet 1 tablet, 1 tablet, oral, q4h PRN, 1 tablet at 11/03/24 1011 OR HYDROcodone-acetaminophen (Marcellus) 5- 325 mg per tablet 2 tablet, 2 tablet, oral, q4h PRN, Ky Ritter MD, 2 tablet at 11/05/24 1138 hydrocortisone (Cortef) tablet 10 mg, 10 mg, oral, Daily, Debbie Luna BEEF SPECIALIST, 10 mg at 11/05/24 1022 HYDROmorphone (Dilaudid) injection 0.2 mg, 0.2 mg, intravenous, q3h PRN, Sid Cruz PA-C, 0.2 mg at 11/05/24 0638 hydrOXYzine pamoate (Vistaril) capsule 50 mg, 50 mg, oral, Nightly PRN, Debbie Luna, BEEF SPECIALIST insulin lispro (HumaLOG) injection 0-5 Units, 0-5 Units, subcutaneous, TID with meals AND insulin lispro (HumaLOG) injection 0-4 Units, 0-4 Units, subcutaneous, Nightly, Rosa Willoughby PA-C levothyroxine (Synthroid, Levoxyl) tablet 75 mcg, 75 mcg, oral, Daily before breakfast, Rosa Willoughby PA-C, 75 mcg at 11/05/24 0630 liothyronine (Cytomel) tablet 5 mcg, 5 mcg, oral, Daily, Rosa Willoughby PA-C, 5 mcg at 11/05/24 1022 magnesium oxide (Mag-Ox) tablet 400 mg, 400 mg, oral, q8h PRN, Rosa Willoughby PA-C, 400 mg at 11/05/24 1400 magnesium sulfate in D5W IVPB 1 g, 1 g, intravenous, q1h PRN, Rosa Willoughby PA-C magnesium sulfate in D5W IVPB 1 g, 1 g, intravenous, q1h PRN, Rosa Willoughby PA-C magnesium sulfate in D5W IVPB 1 g, 1 g, intravenous, q1h PRN, Rosa Willoughby PA-C magnesium sulfate in D5W IVPB 1 g, 1 g, intravenous, q1h PRN, Rosa Willoughby PA-C melatonin tablet 5 mg, 5 mg, oral, Nightly PRN, Debbie Luna, BEEF SPECIALIST methocarbamol (Robaxin) tablet 750 mg, 750 mg, oral, 4x daily, Rosa Willoughby PA-C, 750 mg at 11/05/24 1356 metoclopramide (Reglan) tablet 10 mg, 10 mg, oral, Daily PRN, Debbie Luna, BEEF SPECIALIST, 10 mg at 11/04/24 1302 metoprolol succinate XL (Toprol-XL) 24 hr split tablet 12.5 mg, 12.5 mg, oral, Daily, Rosa Willoughby PA-C, 12.5 mg at 11/05/24 1022 mirtazapine (Remeron) tablet 45 mg, 45 mg, oral, Nightly, Rosa Willoughby PA-C, 45 mg at 11/04/24 2244 ondansetron HCl (PF) (Zofran) injection 4 mg, 4 mg, intravenous, q8h PRN, Timothy Dee MD pantoprazole (ProtoNix) EC tablet 40 mg, 40 mg, oral, BID AC, Rosa Willoughby PA-C, 40 mg at 11/05/24 0641 potassium chloride CR (Klor-Con M20) ER tablet 20 mEq, 20 mEq, oral, q1h PRN, Rosa Willoughby PA-C potassium chloride CR (Klor-Con M20) ER tablet 20 mEq, 20 mEq, oral, q1h PRN, Rosa Willoughby PA-C,20 mEq at 11/05/24 1134 potassium chloride CR (Klor-Con M20) ER tablet 20 mEq, 20 mEq, oral, q1h PRN, Rosa Willoughby PA-C potassium chloride IVPB 10 mEq, 10 mEq, intravenous, q1h PRN AND potassium chloride CR (Klor-Con M20) ER tablet 40 mEq, 40 mEq, oral, q2h PRN, Rosa Willoughby PA-C potassium chloride IVPB 10 mEq, 10 mEq, intravenous, q1h PRN, Rosa Willoughby PA-C potassium chloride IVPB 10 mEq, 10 mEq, intravenous, q1h PRN, Rosa Willoughby PA-C potassium chloride IVPB 10 mEq, 10 mEq, intravenous, q1h PRN, Rosa Willoughby PA-C potassium chloride IVPB 10 mEq, 10 mEq, intravenous, q1h PRN, Rosa Willoughby PA-C prochlorperazine (Compazine) injection 10 mg, 10 mg, intravenous, Once, Janet Soto MD prochlorperazine (Compazine) injection 5 mg, 5 mg, intravenous, Once PRN, Robin Luz MD sennosides-docusate sodium (Kadie-Colace) 8.6-50 mg per tablet 1 tablet, 1 tablet, oral, Nightly PRN, Rosa Willoughby PA-C, 1 tablet at 11/03/242201 sod phos di, mono-K phos mono (K Phos Neutral) tablet 2 tablet, 500 mg, oral, q4h PRN, Rosa Willoughby PA-C sod phos di, mono-K phos mono (K Phos Neutral) tablet 4 tablet, 1,000 mg, oral, q4h PRN, Rosa Willoughby PA-C [CANCELED] Insert peripheral IV, , , Once AND [CANCELED] Saline lock IV, , , Once AND sodium chloride flush 10 mL, 10 mL, intravenous, q8h PRN, Debbie Luna CNP sucralfate (Carafate) tablet 1 g, 1 g, oral, Before meals & nightly, Rosa Willoughby PA-C, 1 g at 11/05/24 1026 topiramate (Topamax) tablet 100 mg, 100 mg, oral, BID, Rosa Willoughby PA-C, 100 mg at 11/05/24 1023 traMADol (Ultram) tablet 50 mg, 50 mg, oral, q6h PRN, Debbie Luna CNP, 50 mg at 11/05/24 1356 traZODone (Desyrel) tablet 100 mg, 100 mg, oral, Nightly, Rosa Willoughby PA-C, 100 mg at 11/04/24 2244 trimethobenzamide (Tigan) injection 200 mg, 200 mg, intramuscular, q6h PRN, Debbie Luna CNP, 200 mg at 11/03/24 0018 verapamil (Calan) tablet 40 mg, 40 mg, oral, q8h TANIA, Marie Alejandro MD, 40 mg at 11/05/24 1355 * Mikayla Jennings PA-C - 11/04/2024 11:54 AM EDT Images from the original note were not included. [facility] Vascular Surgery DAILY PROGRESS NOTE Subjective Patient seen and evaluated at bedside. Did not receive blood overnight. She endorses increased right groin pain today. Hemoglobin has been downtrending, was 8.0 this AM. Denies chest pain, shortness of breath, fever, chills, abdominal pain Objective Vitals: Vitals: 11/04/24 1100 BP: 110/62 Pulse: 84 Resp: 10 Temp: SpO2: 98% I/O last 3 completed shifts: In: 5148.4 (60.7 mL/kg) [P.O.:1100; I.V.:1600 (18.9 mL/kg); Blood:700; IV Piggyback:505.5] Out: 4245 (50.1 mL/kg) [Urine:3940 (1.3 mL/kg/hr); Drains:285; Blood:20] Weight: 84.8 kg I/O this shift: In: 1016.2 [IV Piggyback:200] Out: 970 [Urine:970] Physical Exam Vitals reviewed. Cardiovascular: Rate and Rhythm: Normal rate and regular rhythm. Comments: 2+ DP 1+ PT Pulmonary: Effort: Pulmonary effort is normal. No respiratory distress. Abdominal: General: There is no distension. Tenderness: There is no abdominal tenderness. Musculoskeletal: Right lower leg: No edema. Left lower leg: No edema. Skin: General: Skin is warm. Capillary Refill: Capillary refill takes less than 2 seconds. Comments: Right groin with increased pain to palpation. Firm, palpable area of ecchymosis. No pulsatile mass appreciated GONSALO drain in place with minimal output Neurological: General: No focal deficit present. Mental Status: She is alert and oriented to person, place, and time. Labs: Results from last 7 days Lab Units 11/04/24 0505 11/04/24 0009 11/03/24 1834 11/03/24 1323 11/03/24 0446 11/03/24 0007 11/02/242001 WBC AUTO 10*3/uL 3.79* -- -- 7.60 6.23 7.71 9.01 HEMOGLOBIN g/dL 8.0* 8.0* 8.3* 9.0* 9.5* 9.7* 9.4* HEMATOCRIT % 23.7* 23.5* 24.9* 26.7* 28.7* 29.0* 28.9* PLATELETS AUTO 10*3/uL 185 -- -- 253 248 216 358 Results from last 7 days Lab Units 11/04/24 0505 11/03/24 0446 11/03/24 0007 11/01/24 1010 10/31/24 0627 SODIUM mmol/L 140 136 135* 137 140 POTASSIUM mmol/L 3.6 4.4 4.9 4.6 4.0 CO2 mmol/L 28 20* 27 26 BUN mg/dL 9 6* 8 9 5* CREATININE mg/dL 0.45* 0.52* 0.53* 0.53* 0.60 Results from last 7 days Lab Units 11/03/24 0007 10/30/24 1911 INR 1.17* 1.15* Medications: aspirin, 81 mg, oral, Daily atorvastatin, 80 mg, oral, Nightly clopidogrel, 75 mg, oral, Daily enoxaparin, 30 mg, subcutaneous, BID escitalopram, 20 mg, oral, Daily fentaNYL, 1 patch, transdermal, q72h hydrocortisone, 10 mg, oral, Daily insulin lispro, 0-5 Units, subcutaneous, TID with meals And insulin lispro, 0-4 Units, subcutaneous, Nightly levothyroxine, 75 mcg, oral, Daily before breakfast liothyronine, 5 mcg, oral, Daily methocarbamol, 750 mg, oral, 4x daily metoprolol succinate XL, 12.5 mg, oral, Daily mirtazapine, 45 mg, oral, Nightly pantoprazole, 40 mg, oral, BID AC prochlorperazine, 10 mg, intravenous, Once sucralfate, 1 g, oral, Before meals & nightly topiramate, 100 mg, oral, BID traZODone, 100 mg, oral, Nightly Adult Cyclic 3-in-1 TPN, 2,300 mL, Last Rate: 79.8 mL/hr at 11/04/24 1112 Imaging: ECG 12 lead Normal sinus rhythm T abnormalities consider high lateral ischemia Mild ST elevation in V2 and V3 , consider acute septal injury Abnormal ECG Confirmed by Griffin Diaz ([id number]) on 11/02/2024 10:58:13 PM Cardiac catheterization PROCEDURE PHYSICIAN: Wali Collins MD Clinical Presentation: 34 y.o. 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 The MLA by IVUS was 2.9 mm2 2) Non-significant iFR of 0.92 and 0.93 Recommendations: 1) Continued medical management of non-flow limiting coronary dissection with addition of calcium antagonist for possible coronary spasm at the site of dissection Procedures Performed: coronary angiography, intravascular ultrasound LAD, iFR determination Omni guidewire, conscious sedation (see attached sheet for details), ultrasound guidance for vascular access Procedure Description: Due to recurrent chest pain and increase in troponin values the patient was brought to the cardiac catheterization lab . Informed written consent was obtained. she was prepped and draped in usual sterile fashion. Time-out was performed. she was given Versed and fentanyl for sedation. 1% lidocaine was infiltrated over the right femoral artery. A 6-Iranian sheath was placed in right femoral artery. Coronary angiography was performed with a JL4 and then repeated after IC nitroglycerin 50 mcg x 2. At this time, it was apparent that the LAD had a moderate stenosis and IVUS and iFR were performed. Heparin anticoagulation was used for this procedure. ACT was maintained at >250 seconds. A 6 Iranian xb3 was engaged to the [place]. I then advanced a 0.014 guidewire to the distal left anterior descending. IVUS imaging was performed with a Refinity catheter after additional IC nitroglycerin and IV nitroglycerin Next, an Omni wire was placed and an iFR performed x2 after normalizing pressures. After completion of the procedure all catheters and wires were removed. The right femoral sheath was removed and manual pressure was applied to obtain hemostasis. Specimens Removed: None Complications: None Coronary Angiogram: Left main: Normal LAD: In the mid vessel there is an area of myocardial bridging followed by a discrete angiographic stenosis. The entire segment increased in diameter with IV nitroglycerin. On the delayed image there is persistence of contrast along the lateral wall of the LAD in a linear fashion consistent with but not diagnostic for a dissection flap LCX: Normal RCA: not imaged. Was imaged one and two days prior Intravascular ultrasound: In the mid vessel there is an atherosclerotic plaque with a MLA of 2.9 mm2 Distal to this the vessel is 3 mm in diameter. At the site of plaque there is a discrete dissection. Before the plaque there is myocardial bridging with some dissection of the intima evident Cardiac catheterization PROCEDURE PHYSICIAN: Tino Gilmore MD . Indications: Juan Kong is a 34 y.o. female who is admitted with chest pain and elevated troponin as well as EKG changes. She was diagnosed NSTEMI and referred for cardiac catheterization. Assistants: Cardiovascular Fellow Dr Janet Soto. Procedure Performed: Coronary angiogram. Left heart catheterization. Administration of intraarterial nitroglycerin to treat radial artery spasm. Access into the left radial artery under ultrasound guidance. Methods: Procedure was explained to the patient with risks and benefits; she signed informed consent. 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 The left wrist area was prepped and draped in usual fashion. Micropuncture technique was used for access in the radial artery. A 5-Iranian x 11 cm sheath was placed. Verapamil was given through the sheath, and heparin was administered intravenously. A 5 Iranian JR4 diagnostic catheter was advanced and this was used to perform left heart catheterization with measurement of pressures. Pullback across aortic valve was performed with measurement of pressures. The catheter was used to attempt engagement of the right coronary artery however this was not possible. At this point the patient started developing radial artery spasm. This was treated by administration of intra-arterial nitroglycerin. The catheter was then downsized to a 4 Iranian JR4 diagnostic catheter however this also was not able to engage the right coronary artery. Catheter was exchanged to a JR4 diagnostic catheter which could not engage the left coronary artery. Catheter was exchanged to a 4 Iranian JL 3.5 diagnostic catheter which eventually was able to engage the left coronary artery. Angiography was performed in multiple views. Catheter was exchanged over the wire to a 4 Iranian 3DRC catheter. Multiple attempts were made to engage the right coronary artery however these failed. Nonselective aortic root angiography was performed however there was no evidence of opacification of the origin of the right coronary artery. At this point the patient developed additional spasm in the radial artery with significant pain which prevented further manipulation of the catheter. At this point the catheter was retracted. Intra-arterial nitroglycerin was administered through the radial sheath. The procedure was concluded. Hemostasis was achieved by TR band in the radial artery. she tolerated the procedure well and was transferred back to the hospital room. Hemodynamic Data: LV: 159/9, 19 AO: 159/92 (121) Coronary angiography: This is a left-dominant circulation. Left Main: This arises from the left coronary cusp. It bifurcates into left anterior descending and circumflex vessels. This is angiographically normal. Left anterior descending: Mild disease is noted in the mid segment of the LAD. The rest of the LAD is free of disease. Circumflex: This is a dominant vessel. This is angiographically normal. Right coronary artery: There was inability to engage the right coronary artery and the origin of the artery was not apparent on nonselective aortic root injections. 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 Impression/Findings: Mild disease in the LAD. 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 Mildly to moderately elevated left filling pressures. No aortic stenosis. Plan: Aspirin 81 mg daily. Statin therapy. The patient will be scheduled for cardiac catheterization to be performed from the femoral access given limitations of radial access due to spasm. Further recommendations per inpatient Cardiology service. Tino Gilmore MD Assessment/Plan Juan Kong is a 34 y.o. White female with expanding R groin hematoma s/p cardiac catheterization procedure. She is s/p hematoma evaluation and repair of pseudoaneurysm. Unable to complete pseudoaneurysm US due to groin dressing. Will plan to order CTA given decrease in hemoglobin and increased right groin pain Continue with GONSALO drain Continue to monitor H/H Continue Q4H neurovascular heck Ok to restart DAPT in coordination with cardiology Ok to start DVT prophylaxis Apply sandbag and ice pack to the groin site while patient remains in a supine position Rest of care per primary Will continue to follow Mikayla Jennings PA-C Vasular Surgery and Wound Care x [phone] For non-urgent questions, [employer] Chat may be used 0600 - 1800, M-F. For urgent concerns, please call [phone], or ask the refinery operator vapor recovery unit to connect you to the on-publicity person. For after-hours concerns, please page [phone], or ask the refinery operator vapor recovery unit to connect you to the on-publicity person. * Marie Alejandro MD - 11/04/2024 8:53 AM EDT Images from the original note were not included. Cardiology Progress Note Subjective Subjective: 11/04/2024 Patient was seen and examined at bedside, no acute events overnight, vital signs are stable. She was having urinary retention yesterday, and a Costello was placed at bedside by urology. Follow-up in OP setting to workup dysfunctional voiding. Chest pain completely resolved during encounter, and patient complained of slight tenderness in the right groin region. 11/03/2024 Patient was seen and examined at bedside, overnight had pseudoaneurysmal complication in the right groin after catheterization s/p pseudoaneurysm repair by vascular surgery. Patient is doing well today, with pain downtrending from 6 to 0 out of 10. 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 11/02/2024 Patient was seen and examined at bedside, no acute events overnight, vital signs are stable. Patient was cathed yesterday and found to have type III SCAD, and later this afternoon had 7 out of 10 sharp shooting chest pain in which she was cathed, repeat coronary angiogram was done. 11/01/2024 Underwent coronary angiogram yesterday but only left coronary artery was engaged. Repeat cath todayto assess the RCA. Patient reports intermittent chest pain and lightheadedness upon standing up. Denies shortness of breath. She is getting TPN at bedside. History: Juan Kong is a 34 y.o. female w/ PMHx of HTN, HLD, asthma, RICHAR, hypothyroidism, GERD, IBS, fibromyalgia, T2DM, median arcuate ligament syndrome s/p celiac plexus block and MALS release, morbid obesity s/p sleeve gastrectomy, extensive chronic adhesions and recurrent obstructions, and gastroparesis s/p multiple infusions and J-tube C/B infection and removal who came as a direct admission from [facility] due to chest pain. Patient states that the pain started after her qD infusions for gastroparesis and characterizes as sharp and radiating to her left arm, 10 out of 10. She states that the CP was associated with dizziness, shortness of breath, nausea, and vomiting. At this time, she states that she has been receivingLR infusions w/ Benadryl and Compazine daily for the past month, and at the beginning of when she was receiving it yesterday she started feeling severe chest pain. HST trending from 337 to 129 down to 61, and BNP 77. ECG shows NSR with HR 83, and some PVCs. Repeat ECG ordered, and patient has never had a cath. Previous echocardiogram showed normal results and was completed due to concern for endocarditis due to sepsis, however patient does not remember the exact results. Patient symptoms have improved and are now a 5 out of 10, with sporadic sharp pains but general dull pain. Patient's pain is reproducible with palpitation in the left axilla, and left chest region. Objective Current Medications[1] Objective: Patient Vitals for the past 24 hrs: BP Temp Temp src Pulse Resp SpO2 11/04/24 0600 101/51 -- -- 70 (!) 8 95 % 11/04/24 0500 110/55 -- -- 77 (!) 8 95 % 11/04/24 0400 104/55 36.6 ??C (97.8 ??F) Oral 73 12 97 % 11/04/24 0300 114/58 -- -- 85 16 97 % 11/04/24 0200 (!) 103/48 -- -- 77 (!) 8 95 % 11/04/24 0100 100/59 -- -- 79 (!) 6 96 % 11/04/24 0000 94/53 36.5 ??C (97.7 ??F) Oral 79 13 94 % 11/03/24 2300 (!) 93/45 -- -- 77 (!) 9 94 % 11/03/24 2200 101/58 -- -- 72 15 96 % 11/03/24 2100 98/51 -- -- 76 15 96 % 11/03/24 2000 99/50 36.6 ??C (97.8 ??F) Oral 82 14 96 % 11/03/24 1900 110/71 -- -- 96 (!) 9 95 % 11/03/24 1800 115/63 -- -- 87 16 96 % 11/03/24 1700 111/73 -- -- 92 11 94 % 11/03/24 1630 120/68 36.5 ??C (97.7 ??F) Oral 100 19 95 % 11/03/24 1500 116/60 -- -- 95 14 96 % 11/03/24 1400 125/66 -- -- 101 11 95 % 11/03/24 1300 116/70 -- -- 95 16 95 % 11/03/24 1200 109/70 36.5 ??C (97.7 ??F) Oral 90 13 94 % 11/03/24 1100 116/69 -- -- 102 16 94 % 11/03/24 1000 120/71 -- -- 77 10 96 % 11/03/24 0900 116/69 -- -- 81 10 95 % Physical Examination: Physical Exam Constitutional: General: She is not in acute distress. Appearance: Normal appearance. She is normal weight. She is not ill-appearing. HENT: Head: Normocephalic and atraumatic. Nose: No congestion or rhinorrhea. Mouth/Throat: Mouth: Mucous membranes are moist. Eyes: General: No scleral icterus. Extraocular Movements: Extraocular movements intact. Conjunctiva/sclera: Conjunctivae normal. Pupils: Pupils are equal, round, and reactive to light. Cardiovascular: Rate and Rhythm: Normal rate and regular rhythm. Pulses: Normal pulses. Heart sounds: Normal heart sounds. No murmur heard. Pulmonary: Effort: Pulmonary effort is normal. No respiratory distress. Breath sounds: Normal breath sounds. No wheezing. Abdominal: General: Abdomen is flat. Bowel sounds are normal. There is no distension. Palpations: Abdomen is soft. Tenderness: There is no abdominal tenderness. There is no guarding. Musculoskeletal: General: Tenderness (Right groin s/p pseudoaneurysm repair) present. No swelling. Right lower leg: No edema. Left lower leg: No edema. Skin: General: Skin is warm. Coloration: Skin is not jaundiced or pale. Neurological: General: No focal deficit present. Mental Status: She is alert and oriented to person, place, and time. Mental status is at baseline. Cranial Nerves: No cranial nerve deficit. Motor: No weakness. Psychiatric: Mood and Affect: Mood normal. Behavior: Behavior normal. Thought Content: Thought content normal. Judgment: Judgment normal. Relevant Lab Results Encounter Date: 10/30/24 ECG 12 lead Result Value Ventricular Rate 74 Atrial Rate 74 MA Interval 138 QRS DURATION 84 QT Interval 454 QTC CALCULATION(BAZETT) 503 P [place] 54 R-[place] 41 T Wave [place] 77 Impression Normal sinus rhythm T abnormalities consider high lateral ischemia Mild ST elevation in V2 and V3 , consider acute septal injury Abnormal ECG Confirmed by Griffin Diaz ([id number]) on 11/02/2024 10:58:13 PM No results found for: CKTOTAL , CKMB , CKMBINDEX , TROPONINI Limited Echo (TTE) w/wo Limited Doppler, Color Flow, Imaging Agent, Strain, 3D, Bubble Study Result Date: 10/31/2024 1 1 [facility] Heart Station [address] [place], [place] [id number] (fax) Echocardiogram-[facility] Name: JUAN KONG Study Date: 10/31/2024 11:16 AM B/P: 106 mmHg/67 mmHg HR: 70 bpm Date of : 1990 [facility] Age: 34 year(s) Patient Room: 3187 Weight: 181 lb. Gender: Female Patient Status: InPt BSA: 1.92 m2 Indication: Chest Pain, gartroparesis, limited echo to assess CP Examination: Limited Echo, Color flow imaging, Lumason Contrast Image Quality: Fair Patient Consent: Procedure explained to patient Exam Details Contrast: I.V. dose of Lumason Conclusions Left Ventricle: Global left vent ricular systolic function is at lower limits of normal. The calculated Biplane EF is 53 %. EF rangeis estimated at 50 % -55 %. Left ventricular wall thickness is normal. Regional wall motion abnormalities (see diagram). Right Ventricle: The right ventricle is normal in size. Normal right ventricular systolic function. Unable to assess right sided pressures due to lack of measurable tricuspid regurgitation. Left Atrium: The left atrium is normal in size. Pericardium: There is a minimal pericardial effusion. Overall Conclusions: Due to suboptimal imaging Lumason contrast was administered for opacification and better delineation of endocardial borders. Measurements Left Ventricle Label Value Normal Value LVDd, 2D 4.71 cm (3.9cm - 5.3cm) LVDs, 2D 2.96 cm (2.1cm - 4cm) IVSd, 2D 0.7 cm (0.6cm - 1.1cm) LVPWd, 2D 0.83 cm (0.6cm - 0.9cm) LVEF, BP 53 % (55% - 65%) LV Mass, 2D ASE 115.82 g LV Mass Index, 2D ASE 60.3 g/m?? (44g/m?? - 88.4g/m??) RWT, MM 0.35 (0 - 0.42) LVSVI, 2D 35.9 ml/m2 Aorta Label Value Normal Value AoRoot, 2D 2.5 cm (1.4cm - 3.8cm) Valvular Assessment LVOT 0.7 - 1.1 m/sec Aortic Valve 1.0 - 1.7 m/sec Mitral Valve 0.6 - 1.3 m/sec Tricuspid Valve 0.3 - 0.7 m/sec Pulmonic Valve 0.6 - 0.9 m/sec Regurgitation No No No No Findings Left Ventricle: Global left ventricular systolic function is at lower limits of normal. The calculated Biplane EF is 53 %. EF range is estimatedat 50 % -55 %. Left ventricular wall thickness is normal. Regional wall motion abnormalities (see diagram). The basal inferolateral, mid anterior, mid anteroseptal, mid inferoseptal, mid inferolateral and apical lateral left ventricular wall segments are hypokinetic. All remaining scored left ventricular wall segments are with no wall motion abnormalities. Right Ventricle: The right ventricle is normal in size. Normal right ventricular systolic function. Unable to assess right sided pressures due to lack of measurable tricuspid regurgitation. Left Atrium: The left atrium is normal in size. Right Atrium: The right atrium is normal in size. Mitral Valve: The mitral valve is normal in mobilityand thickness. No mitral regurgitation. Aortic Valve: The aortic valve is normal. No aortic valve regurgitation. Tricuspid Valve: Normal tricuspid valve. No tricuspid regurgitation. Pulmonic Valve: Normal pulmonary valve. No pulmonary regurgitation. Aorta: The aortic root exhibits normal size. Great Vessels: IVC: The IVC is not visualized. Pericardium: There is a minimal pericardial effusion. Procedure Staff Reading Group: [facility] Finisher [employer]asterboard: Raegan Cardona BS, RDCS Ordering Physician: [place] RITTER Wall Motion Scores -1 - hyperkinesia, 0 - not evaluated, 1 - normal, 2 - hypokinesia, 3 - akinesia, 4 - dyskinesia No nuclear medicine results found for the past 12 months Relevant Imaging Results ECG 12 lead Normal sinus rhythm T abnormalities consider high lateral ischemia Mild ST elevation in V2 and V3 , consider acute septal injury Abnormal ECG Confirmed by Griffin Diaz ([id number]) on 11/02/2024 10:58:13 PM Cardiac catheterization PROCEDURE PHYSICIAN: Wali Collins MD Clinical Presentation: 34 y.o. 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 The MLA by IVUS was 2.9 mm2 2) Non-significant iFR of 0.92 and 0.93 Recommendations: 1) Continued medical management of non-flow limiting coronary dissection with addition of calcium antagonist for possible coronary spasm at the site of dissection Procedures Performed: coronary angiography, intravascular ultrasound LAD, iFR determination Omni guidewire, conscious sedation (see attached sheet for details), ultrasound guidance for vascular access Procedure Description: Due to recurrent chest pain and increase in troponin values the patient was brought to the cardiac catheterization lab . Informed written consent was obtained. she was prepped and draped in usual sterile fashion. Time-out was performed. she was given Versed and fentanyl for sedation. 1% lidocaine was infiltrated over the right femoral artery. A 6-Iranian sheath was placed in right femoral artery. Coronary angiography was performed with a JL4 and then repeated after IC nitroglycerin 50 mcg x 2. At this time, it was apparent that the LAD had a moderate stenosis and IVUS and iFR were performed. Heparin anticoagulation was used for this procedure. ACT was maintained at >250 seconds. A 6 Iranian xb3 was engaged to the Lmain. I then advanced a 0.014 guidewire to the distal left anterior descending. IVUS imaging was performed with a Refinity catheter after additional IC nitroglycerin and IV nitroglycerin Next, an Omni wire was placed and an iFR performed x2 after normalizing pressures. After completion of the procedure all catheters and wires were removed. The right femoral sheath was removed and manual pressure was applied to obtain hemostasis. Specimens Removed: None Complications: None Coronary Angiogram: Left main: Normal LAD: In the mid vessel there is an area of myocardial bridging followed by a discrete angiographic stenosis. The entire segment increased in diameter with IV nitroglycerin. On the delayed image there is persistence of contrast along the lateral wall of the LAD in a linear fashion consistent with but not diagnostic for a dissection flap LCX: Normal RCA: not imaged. Was imaged one and two days prior Intravascular ultrasound: In the mid vessel there is an atherosclerotic plaque with a MLA of 2.9 mm2 Distal to this the vessel is 3 mm in diameter. At the site of plaque there is a discrete dissection. Before the plaque there is myocardial bridging with some dissection of the intima evident Cardiac catheterization PROCEDURE PHYSICIAN: Tino Gilmore MD . Indications: Juan Kong is a 34 y.o. female who is admitted with chest pain and elevated troponin as well as EKG changes. She was diagnosed NSTEMI and referred for cardiac catheterization. Assistants: Cardiovascular Fellow Dr Janet Soto. Procedure Performed: Coronary angiogram. Left heart catheterization. Administration of intraarterial nitroglycerin to treat radial artery spasm. Access into the left radial artery under ultrasound guidance. Methods: Procedure was explained to the patient with risks and benefits; she signed informed consent. 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 The left wrist area was prepped and draped in usual fashion. Micropuncture technique was used for access in the radial artery. A 5-Iranian x 11 cm sheath was placed. Verapamil was given through the sheath, and heparin was administered intravenously. A 5 Iranian JR4 diagnostic catheter was advanced and this was used to perform left heart catheterization with measurement of pressures. Pullback across aortic valve was performed with measurement of pressures. The catheter was used to attempt engagement of the right coronary artery however this was not possible. At this point the patient started developing radial artery spasm. This was treated by administration of intra-arterial nitroglycerin. The catheter was then downsized to a 4 Iranian JR4 diagnostic catheter however this also was not able to engage the right coronary artery. Catheter was exchanged to a JR4 diagnostic catheter which could not engage the left coronary artery. Catheter was exchanged to a 4 Iranian JL 3.5 diagnostic catheter which eventually was able to engage the left coronary artery. Angiography was performed in multiple views. Catheter was exchanged over the wire to a 4 Iranian 3DRC catheter. Multiple attempts were made to engage the right coronary artery however these failed. Nonselective aortic root angiography was performed however there was no evidence of opacification of the origin of the right coronary artery. At this point the patient developed additional spasm in the radial artery with significant pain which prevented further manipulation of the catheter. At this point the catheter was retracted. Intra-arterial nitroglycerin was administered through the radial sheath. The procedure was concluded. Hemostasis was achieved by TR band in the radial artery. she tolerated the procedure well and was transferred back to the hospital room. Hemodynamic Data: LV: 159/9, 19 AO: 159/92 (121) Coronary angiography: This is a left-dominant circulation. Left Main: This arises from the left coronary cusp. It bifurcates into left anterior descending and circumflex vessels. This is angiographically normal. Left anterior descending: Mild disease is noted in the mid segment of the LAD. The rest of the LAD is free of disease. Circumflex: This is a dominant vessel. This is angiographically normal. Right coronary artery: There was inability to engage the right coronary artery and the origin of the artery was not apparent on nonselective aortic root injections. 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 Impression/Findings: Mild disease in the LAD. 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 Mildly to moderately elevated left filling pressures. No aortic stenosis. Plan: Aspirin 81 mg daily. Statin therapy. The patient will be scheduled for cardiac catheterization to be performed from the femoral access given limitations of radial access due to spasm. Further recommendations per inpatient Cardiology service. 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, type III SCAD EKG shows NSR with HR 83 and some PVCs HST trend: [id number] downtrending Cath on 11/01/2024: Coronary angiogram and IVUS demonstrate focal SCAD (Type 3 SCAD) in the mid LAD.Since there is good coronary artery blood flow and the SCAD is non-flow limiting, medical therapy is recommended Myocardial bridging of mid LAD Right Groin Hematoma, right groin pseudoaneurysm s/p repair 11/02 SCAD type III in mid LAD T2DM Morbid obesity s/p sleeve gastrectomy IBS HTN HLD RICHAR GERD Hypothyroidism Asthma H/O median arcuate ligament syndrome s/p celiac plexus block and MALS release H/O extensive chronic adhesions and recurrent obstructions Gastroparesis s/p daily infusions and J-tube C/B infection and removal Fibromyalgia PLAN Okay to restart aspirin and Plavix Closely monitor Hgb Transfuse for hemoglobin < 8 Continue Toprol 12.5 mg May require addition of negative inotrope such as verapamil for myocardial bridging if chest pain recurs Monitor tonight and patient will likely stay for appropriate evaluation until Wednesday Rest of care per primary team Cardiology will continue following along This note was, at least in part, completed using a voice animal husbandry manager system. Every effort was made to ensure accuracy. However, inadvertent computerized animal husbandry manager errors may be present. Lisa Pena DO Internal Medicine Resident, PGY-2 [facility] 8:53 AM 11/04/24 Addendum Pt was reported to have chest pain and diaphoresis. EKG unremarkable, in fact st elevations are no longer present. Will add verapamil and recommended blood transfusions given hemoglobin < 8 Marie Alejandro MD PGY-6 Fire Crew Specialist [facility] Pager # [phone] [1] Current Facility-Administered Medications: acetaminophen (Tylenol) tablet 650 mg, 650 mg, oral, q8h PRN, Sid Cruz PA-C Adult Cyclic 3-in-1 TPN, 2,300 mL, intravenous, Cyclic TPN, Kaye Craig, RD, Last Rate: 159 mL/hr at 11/04/24 0552, Rate Verify at 11/04/24 0552 albuterol 90 mcg/actuation inhaler 2 puff, 2 puff, inhalation, q6h PRN, Debbie Luna CNP aspirin EC tablet 81 mg, 81 mg, oral, Daily, Sid Cruz PA-C, 81 mg at 11/03/24 1319 atorvastatin (Lipitor) tablet 80 mg, 80 mg, oral, Nightly, Rosa Willoughby PA-C, 80 mg at 11/03/24 2202 calcium gluc in NaCl, iso-osm 1 gram/100 mL solution 1 g, 1 g, intravenous, q1h, Timothy Dee MD clopidogrel (Plavix) tablet 75 mg, 75 mg, oral, Daily, Sid Cruz PA-C, 75 mg at 11/03/24 1319 glucose chewable tablet 24 g, 24 g, oral, q15 min PRN OR dextrose 50 % in water (D50W) syringe 25 g, 25 g, intravenous, q15 min PRN, Debbie Luna CNP, 25 g at 10/31/24 1228 diphenhydrAMINE (BENADryl) injection 12.5 mg, 12.5 mg, intravenous, q6h PRN, Ky Ritter MD, 12.5 mg at 11/04/24 0336 enoxaparin (Lovenox) syringe 30 mg, 30 mg, subcutaneous, BID, Sid Cruz PA-C, 30 mg at 11/03/24 2202 escitalopram (Lexapro) tablet 20 mg, 20 mg, oral, Daily, Rosa Willoughby PA-C, 20 mg at 11/03/24 1012 fentaNYL (Duragesic) 25 mcg/hr 1 patch, 1 patch, transdermal, q72h, Rosa Willoughby PA-C, 1 patch at 11/03/24 1128 HYDROcodone-acetaminophen (Marcellus) 5-325 mg per tablet 1 tablet, 1 tablet, oral, q4h PRN, 1 tablet at 11/03/24 1011 OR HYDROcodone-acetaminophen (Marcellus) 5- 325 mg per tablet 2 tablet, 2 tablet, oral, q4h PRN, Ky Ritter MD, 2 tablet at 11/04/24 0336 hydrocortisone (Cortef) tablet 10 mg, 10 mg, oral, Daily, Debbie Luna CNP, 10 mg at 11/03/24 1014 HYDROmorphone (Dilaudid) injection 0.2 mg, 0.2 mg, intravenous, q3h PRN, Sid Cruz PA-C, 0.2 mg at 11/04/24 0512 hydrOXYzine pamoate (Vistaril) capsule 50 mg, 50 mg, oral, Nightly PRN, Debbie Luna CNP insulin lispro (HumaLOG) injection 0-5 Units, 0-5 Units, subcutaneous, TID with meals AND insulin lispro (HumaLOG) injection 0-4 Units, 0-4 Units, subcutaneous, Nightly, Rosa Willoughby PA-C levothyroxine (Synthroid, Levoxyl) tablet 75 mcg, 75 mcg, oral, Daily before breakfast, Rosa Willoughby PA-C, 75 mcg at 11/04/24 0511 liothyronine (Cytomel) tablet 5 mcg, 5 mcg, oral, Daily, Rosa Willoughby PA-C, 5 mcg at 11/03/24 1012 magnesium oxide (Mag-Ox) tablet 400 mg, 400 mg, oral, q8h PRN, Rosa Willoughby PA-C magnesium sulfate in D5W IVPB 1 g, 1 g, intravenous, q1h PRN, Rosa Willoughby PA-C magnesium sulfate in D5W IVPB 1 g, 1 g, intravenous, q1h PRN, Rosa Willoughby PA-C magnesium sulfate in D5W IVPB 1 g, 1 g, intravenous, q1h PRN, Rosa Willoughby PA-C magnesium sulfate in D5W IVPB 1 g, 1 g, intravenous, q1h PRN, Rosa Willoughby PA-C melatonin tablet 5 mg, 5 mg, oral, Nightly PRN, Debbie Luna CNP methocarbamol (Robaxin) tablet 750 mg, 750 mg, oral, 4x daily, Rosa Willoughby PA-C, 750 mg at 11/03/24 2202 metoclopramide (Reglan) tablet 10 mg, 10 mg, oral, Daily PRN, Debbie Luna CNP, 10 mg at 11/03/24 0840 metoprolol succinate XL (Toprol-XL) 24 hr split tablet 12.5 mg, 12.5 mg, oral, Daily, Rosa Willoughby PA-C, 12.5 mg at 11/03/24 1014 mirtazapine (Remeron) tablet 45 mg, 45 mg, oral, Nightly, Rosa Willoughby PA-C, 45 mg at 11/03/24 2211 pantoprazole (ProtoNix) EC tablet 40 mg, 40 mg, oral, BID AC, Rosa Willoughby PA-C, 40 mg at 11/04/24 0511 potassium chloride CR (Klor-Con M20) ER tablet 20 mEq, 20 mEq, oral, q1h PRN, Rosa Willoughby PA-C potassium chloride CR (Klor-Con M20) ER tablet 20 mEq, 20 mEq, oral, q1h PRN, Rosa Willoughby PA-C potassium chloride CR (Klor-Con M20) ER tablet 20 mEq, 20 mEq, oral, q1h PRN, Rosa Willoughby PA-C potassium chloride IVPB 10 mEq, 10 mEq, intravenous, q1h PRN AND potassium chloride CR (Klor-Con M20) ER tablet 40 mEq, 40 mEq, oral, q2h PRN, Rosa Willoughby PA-C potassium chloride IVPB 10 mEq, 10 mEq, intravenous, q1h PRN, HENNY Hendrickson-Elroy potassium chloride IVPB 10 mEq, 10 mEq, intravenous, q1h PRN, HENNY Hendrickson-Elroy potassium chloride IVPB 10 mEq, 10 mEq, intravenous, q1h PRN, HENNY Hendrickson-Elroy potassium chloride IVPB 10 mEq, 10 mEq, intravenous, q1h PRN, Rosa Willoughby PA-C prochlorperazine (Compazine) injection 10 mg, 10 mg, intravenous, Once, Janet Soto MD prochlorperazine (Compazine) injection 5 mg, 5 mg, intravenous, Once PRN, Robin Luz MD sennosides-docusate sodium (Kadie-Colace) 8.6-50 mg per tablet 1 tablet, 1 tablet, oral, Nightly PRN, Rosa Willoughby PA-C, 1 tablet at 11/03/24 2202 sod phos di, mono-K phos mono (K Phos Neutral) tablet 2 tablet, 500 mg, oral, q4h PRN, Rosa Willoughby PA-C sod phos di, mono-K phos mono (K Phos Neutral) tablet 4 tablet, 1,000 mg, oral, q4h PRN, Rosa Willoughby PA-C [CANCELED] Insert peripheral IV, , , Once AND [CANCELED] Saline lock IV, , , Once AND sodium chloride flush 10 mL, 10 mL, intravenous, q8h PRN, Debbie Luna CNP sucralfate (Carafate) tablet 1 g, 1 g, oral, Before meals & nightly, Rosa Willoughby PA-C, 1 g at 11/04/24 0512 topiramate (Topamax) tablet 100 mg, 100 mg, oral, BID, LISA HendricksonC, 100 mg at 11/03/24 2211 traMADol (Ultram) tablet 50 mg, 50 mg, oral, q6h PRN, Debbie Pirkl, BEEF SPECIALIST, 50 mg at 11/03/24 1633 traZODone (Desyrel) tablet 100 mg, 100 mg, oral, Nightly, Rosa Willoughby PA-C, 100 mg at 11/03/24 2202 trimethobenzamide (Tigan) injection 200 mg, 200 mg, intramuscular, q6h PRN, Debbie Pirkl, BEEF SPECIALIST, 200 mg at 11/03/24 0018 Cosigned by Salty Hyatt MD at 11/05/2024 5:02 PM EDT Associated attestation - Salty Hyatt MD - 11/05/2024 5:02 PM EDT Agree with the assessment and plan as documented by the eligibility clerk * Michael Dunn MD - 11/03/2024 6:19 PM EDT Images from the original note were not included. [facility] Vascular Surgery DAILY PROGRESS NOTE Subjective Patient was seen and evaluated at the bedside in SICU. Resting comfortably. She is POD 2 s/p hematoma evaluation and repair of pseudoaneurysm. Received 2 units of PRBCs post-procedure. Reports feeling well today. Denies fever, chest pain, or shortness of breath. Also denies any motor or sensory disturbances in the RLE Objective Vitals: Vitals: 11/03/24 1500 BP: 116/60 Pulse: 95 Resp: 14 Temp: SpO2: 96% I/O last 3 completed shifts: In: 7216.8 (85.1 mL/kg) [P.O.:1060; I.V.:3136.4 (37 mL/kg); Blood:700; IV Piggyback:505.5] Out: 6980 (82.3 mL/kg) [Urine:6800 (2.2 mL/kg/hr); Drains:150; Blood:30] Weight: 84.8 kg I/O this shift: In: - Out: 45 [Drains:45] Physical Exam Vitals reviewed. Cardiovascular: Rate and Rhythm: Normal rate and regular rhythm. Comments: 2+ DP 1+ PT Pulmonary: Effort: Pulmonary effort is normal. No respiratory distress. Abdominal: General: There is no distension. Tenderness: There is no abdominal tenderness. Musculoskeletal: Right lower leg: No edema. Left lower leg: No edema. Comments: Right groin site soft. With clean dressing. No sign of expanding hematoma. No signs of erythema, drainage or any other sign of infection.GONSALO drain with 150 ml Skin: General: Skin is warm. Capillary Refill: Capillary refill takes less than 2 seconds. Neurological: General: No focal deficit present. Mental Status: She is alert and oriented to person, place, and time. Labs: Results from last 7 days Lab Units 11/03/24 1323 11/03/24 0446 11/03/24 0007 11/02/24 2002 11/02/24 0615 WBC AUTO 10*3/uL 7.60 6.23 7.71 9.01 4.49 HEMOGLOBIN g/dL 9.0* 9.5* 9.7* 9.4* 10.8* HEMATOCRIT % 26.7* 28.7* 29.0* 28.9* 33.3* PLATELETS AUTO 10*3/uL 253 248 216 358 292 Results from last 7 days Lab Units 11/03/24 0446 11/03/24 0007 11/01/24 1010 10/31/24 0627 10/30/24 191 SODIUM mmol/L 136 135* 137 140 139 POTASSIUM mmol/L 4.4 4.9 4.6 4.0 3.7 CO2 mmol/L 22 20* 27 26 23 BUN mg/dL 6* 8 9 5* 5* CREATININE mg/dL 0.52* 0.53* 0.53* 0.60 0.64 Results from last 7 days Lab Units 11/03/24 0007 10/30/24 191 INR 1.17* 1.15* Medications: aspirin, 81 mg, oral, Daily atorvastatin, 80 mg, oral, Nightly clopidogrel, 75 mg, oral, Daily enoxaparin, 30 mg, subcutaneous, BID escitalopram, 20 mg, oral, Daily fentaNYL, 1 patch, transdermal, q72h hydrocortisone, 10 mg, oral, Daily insulin lispro, 0-5 Units, subcutaneous, TID with meals And insulin lispro, 0-4 Units, subcutaneous, Nightly levothyroxine, 75 mcg, oral, Daily before breakfast liothyronine, 5 mcg, oral, Daily methocarbamol, 750 mg, oral, 4x daily metoprolol succinate XL, 12.5 mg, oral, Daily mirtazapine, 45 mg, oral, Nightly pantoprazole, 40 mg, oral, BID AC prochlorperazine, 10 mg, intravenous, Once sucralfate, 1 g, oral, Before meals & nightly topiramate, 100 mg, oral, BID traZODone, 100 mg, oral, Nightly Adult Cyclic 3-in-1 TPN, 2,300 mL Imaging: ECG 12 lead Normal sinus rhythm T abnormalities consider high lateral ischemia Mild ST elevation in V2 and V3 , consider acute septal injury Abnormal ECG Confirmed by Griffin Diaz ([id number]) on 11/02/2024 10:58:13 PM Cardiac catheterization PROCEDURE PHYSICIAN: Wali Collins MD Clinical Presentation: 34 y.o. 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 The MLA by IVUS was 2.9 mm2 2) Non-significant iFR of 0.92 and 0.93 Recommendations: 1) Continued medical management of non-flow limiting coronary dissection with addition of calcium antagonist for possible coronary spasm at the site of dissection Procedures Performed: coronary angiography, intravascular ultrasound LAD, iFR determination Omni guidewire, conscious sedation (see attached sheet for details), ultrasound guidance for vascular access Procedure Description: Due to recurrent chest pain and increase in troponin values the patient was brought to the cardiac catheterization lab . Informed written consent was obtained. she was prepped and draped in usual sterile fashion. Time-out was performed. she was given Versed and fentanyl for sedation. 1% lidocaine was infiltrated over the right femoral artery. A 6-Iranian sheath was placed in right femoral artery. Coronary angiography was performed with a JL4 and then repeated after IC nitroglycerin 50 mcg x 2. At this time, it was apparent that the LAD had a moderate stenosis and IVUS and iFR were performed. Heparin anticoagulation was used for this procedure. ACT was maintained at >250 seconds. A 6 Iranian xb3 was engaged to the Lmain. I then advanced a 0.014 guidewire to the distal left anterior descending. IVUS imaging was performed with a Refinity catheter after additional IC nitroglycerin and IV nitroglycerin Next, an Omni wire was placed and an iFR performed x2 after normalizing pressures. After completion of the procedure all catheters and wires were removed. The right femoral sheath was removed and manual pressure was applied to obtain hemostasis. Specimens Removed: None Complications: None Coronary Angiogram: Left main: Normal LAD: In the mid vessel there is an area of myocardial bridging followed by a discrete angiographic stenosis. The entire segment increased in diameter with IV nitroglycerin. On the delayed image there is persistence of contrast along the lateral wall of the LAD in a linear fashion consistent with but not diagnostic for a dissection flap LCX: Normal RCA: not imaged. Was imaged one and two days prior Intravascular ultrasound: In the mid vessel there is an atherosclerotic plaque with a MLA of 2.9 mm2 Distal to this the vessel is 3 mm in diameter. At the site of plaque there is a discrete dissection. Before the plaque there is myocardial bridging with some dissection of the intima evident Cardiac catheterization PROCEDURE PHYSICIAN: Tino Gilmore MD . Indications: Juan Kong is a 34 y.o. female who is admitted with chest pain and elevated troponin as well as EKG changes. She was diagnosed NSTEMI and referred for cardiac catheterization. Assistants: Cardiovascular Fellow Dr Janet Soto. Procedure Performed: Coronary angiogram. Left heart catheterization. Administration of intraarterial nitroglycerin to treat radial artery spasm. Access into the left radial artery under ultrasound guidance. Methods: Procedure was explained to the patient with risks and benefits; she signed informed consent. 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 The left wrist area was prepped and draped in usual fashion. Micropuncture technique was used for access in the radial artery. A 5-Iranian x 11 cm sheath was placed. Verapamil was given through the sheath, and heparin was administered intravenously. A 5 Iranian JR4 diagnostic catheter was advanced and this was used to perform left heart catheterization with measurement of pressures. Pullback across aortic valve was performed with measurement of pressures. The catheter was used to attempt engagement of the right coronary artery however this was not possible. At this point the patient started developing radial artery spasm. This was treated by administration of intra-arterial nitroglycerin. The catheter was then downsized to a 4 Iranian JR4 diagnostic catheter however this also was not able to engage the right coronary artery. Catheter was exchanged to a JR4 diagnostic catheter which could not engage the left coronary artery. Catheter was exchanged to a 4 Iranian JL 3.5 diagnostic catheter which eventually was able to engage the left coronary artery. Angiography was performed in multiple views. Catheter was exchanged over the wire to a 4 Iranian 3DRC catheter. Multiple attempts were made to engage the right coronary artery however these failed. Nonselective aortic root angiography was performed however there was no evidence of opacification of the origin of the right coronary artery. At this point the patient developed additional spasm in the radial artery with significant pain which prevented further manipulation of the catheter. At this point the catheter was retracted. Intra-arterial nitroglycerin was administered through the radial sheath. The procedure was concluded. Hemostasis was achieved by TR band in the radial artery. she tolerated the procedure well and was transferred back to the hospital room. Hemodynamic Data: LV: 159/9, 19 AO: 159/92 (121) Coronary angiography: This is a left-dominant circulation. Left Main: This arises from the left coronary cusp. It bifurcates into left anterior descending and circumflex vessels. This is angiographically normal. Left anterior descending: Mild disease is noted in the mid segment of the LAD. The rest of the LAD is free of disease. Circumflex: This is a dominant vessel. This is angiographically normal. Right coronary artery: There was inability to engage the right coronary artery and the origin of the artery was not apparent on nonselective aortic root injections. 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 Impression/Findings: Mild disease in the LAD. 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 Mildly to moderately elevated left filling pressures. No aortic stenosis. Plan: Aspirin 81 mg daily. Statin therapy. The patient will be scheduled for cardiac catheterization to be performed from the femoral access given limitations of radial access due to spasm. Further recommendations per inpatient Cardiology service. Tino Gilmore MD Assessment/Plan [place] M Jose is a 34 y.o. White female with expanding R groin hematoma s/p cardiac catheterization procedure. She is s/p hematoma evaluation and repair of pseudoaneurysm. Continue with GONSALO drain Continue to monitor H/H Continue Q4H neurovascular heck Ok to restart DAPT in coordination with cardiology Ok to start DVT prophylaxis Apply sandbag and ice pack to the groin site while patient remains in a supine position Rest of care per primary Will continue to follow Michael Dunn MD General Surgery, PGY-1 Vascular Surgery Service For non-urgent questions, [employer] Chat may be used [phone] - [phone], M-F. For urgent concerns, please call [phone], or ask the refinery operator vapor recovery unit to connect you to the on-publicity person. For after-hours concerns, please page [phone], or ask the refinery operator vapor recovery unit to connect you to the on-publicity person. Cosigned by Dominic Chappell DO at 11/06/2024 1:58 PM EDT * Lisa Pena DO - 11/03/2024 11:16 AM EDT Images from the original note were not included. Cardiology Progress Note Subjective Subjective: 11/03/2024 Patient was seen and examined at bedside, overnight had pseudoaneurysmal complication in the right groin after catheterization s/p pseudoaneurysm repair by vascular surgery. Patient is doing well today, with pain downtrending from 6 to 0 out of 10. 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 11/02/2024 Patient was seen and examined at bedside, no acute events overnight, vital signs are stable. Patient was cathed yesterday and found to have type III SCAD, and later this afternoon had 7 out of 10 sharp shooting chest pain in which she was cathed, repeat coronary angiogram was done. 11/01/2024 Underwent coronary angiogram yesterday but only left coronary artery was engaged. Repeat cath todayto assess the RCA. Patient reports intermittent chest pain and lightheadedness upon standing up. Denies shortness of breath. She is getting TPN at bedside. History: Juan Kong is a 34 y.o. female w/ PMHx of HTN, HLD, asthma, RICHAR, hypothyroidism, GERD, IBS, fibromyalgia, T2DM, median arcuate ligament syndrome s/p celiac plexus block and MALS release, morbid obesity s/p sleeve gastrectomy, extensive chronic adhesions and recurrent obstructions, and gastroparesis s/p multiple infusions and J-tube C/B infection and removal who came as a direct admission from [facility] due to chest pain. Patient states that the pain started after her qD infusions for gastroparesis and characterizes as sharp and radiating to her left arm, 10 out of 10. She states that the CP was associated with dizziness, shortness of breath, nausea, and vomiting. At this time, she states that she has been receivingLR infusions w/ Benadryl and Compazine daily for the past month, and at the beginning of when she was receiving it yesterday she started feeling severe chest pain. HST trending from 337 to 129 down to 61, and BNP 77. ECG shows NSR with HR 83, and some PVCs. Repeat ECG ordered, and patient has never had a cath. Previous echocardiogram showed normal results and was completed due to concern for endocarditis due to sepsis, however patient does not remember the exact results. Patient symptoms have improved and are now a 5 out of 10, with sporadic sharp pains but general dull pain. Patient's pain is reproducible with palpitation in the left axilla, and left chest region. Objective Current Medications[1] Objective: Patient Vitals for the past 24 hrs: BP Temp Temp src Pulse Resp SpO2 Weight 11/03/24 1000 120/71 -- -- 77 10 96 % -- 11/03/24 0900 116/69 -- -- 81 10 95 % -- 11/03/24 0800 123/79 36.4 ??C (97.6 ??F) Oral 88 16 97 % -- 11/03/24 0600 113/72 -- -- 87 16 98 % -- 11/03/24 0500 128/78 -- -- 90 13 96 % -- 11/03/24 0400 124/84 -- -- 88 11 94 % -- 11/03/24 0300 120/73 -- -- 86 -- 96 % -- 11/03/24 0200 113/82 -- -- 87 10 96 % -- 11/03/24 0100 117/73 -- -- 75 10 97 % -- 11/03/24 0038 118/70 -- -- 78 10 95 % -- 11/03/24 0000 125/72 36.6 ??C (97.8 ??F) Oral 82 14 100 % 84.8 kg (186 lb 15.2 oz) 11/02/24 2355 124/77 -- -- 85 -- 99 % -- 11/02/242 -- -- -- 89 17 -- -- 11/02/24 2328 118/61 -- -- 81 11 -- -- 11/02/24 2314 126/69 -- -- 87 13 -- -- 11/02/24 2258 125/69 -- -- 80 15 -- -- 11/02/24 2245 125/61 -- -- 80 15 -- -- 11/02/24 2229 128/57 -- -- 88 15 -- -- 11/02/24 2214 136/66 36.2 ??C (97.2 ??F) Temporal 90 15 -- -- 11/02/242027 118/77 36.5 ??C (97.7 ??F) Temporal 105 21 100 % -- 11/02/242019 77/56 -- -- (!) 117 26 100 % -- 11/02/242014 89/74 -- -- (!) 120 18 100 % -- 11/02/241999 (!) 110/94 -- -- (!) 118 13 99 % -- 11/02/24 1945 103/59 -- -- 102 14 100 % -- 11/02/24 1930 93/57 -- -- 96 16 98 % -- 11/02/24 192 (!) 122/95 -- -- 94 20 98 % -- 11/02/24 1924 114/59 -- -- 94 20 -- -- 09/18/25 1921 120/79 -- -- 101 21 -- -- 11/02/241919 116/87 -- -- 100 19 99 % -- 11/02/241914 102/79 -- -- 89 15 -- -- 11/02/241911 107/68 -- -- 99 15 100 % -- 11/02/241908 106/68 -- -- 97 14 -- -- 11/02/241905 112/80 -- -- 90 21 -- -- 11/02/241902 114/75 -- -- 94 22 100 % -- 11/02/240 116/77 -- -- 95 (!) 27 100 % -- 11/02/241858 109/81 -- -- 100 15 100 % -- 11/02/241847 99/78 -- -- 85 19 100 % -- 11/02/241844 100/74 -- -- 87 23 -- -- 11/02/241841 104/63 -- -- 88 (!) 9 100 % -- 11/02/24 1840 92/59 -- -- 83 15 100 % -- 11/02/24 1830 103/56 -- -- 90 14 100 % -- 11/02/24 1815 101/66 -- -- 81 14 100 % -- 11/02/24 1801 100/56 -- -- 82 12 100 % -- 11/02/24 175 109/69 -- -- 68 12 100 % -- 11/02/241750 108/68 -- -- 72 13 98 % -- 11/02/24 1748 105/67 -- -- 68 15 -- -- 11/02/24 1745 106/70 -- -- 66 13 -- -- 11/02/242 115/87 -- -- 71 13 -- -- 11/02/24 1739 108/81 -- -- 75 16 -- -- 11/02/24 1736 109/75 -- -- 70 14 -- -- 11/02/24 1733 104/80 -- -- 69 12 -- -- 11/02/24 1730 111/53 -- -- 85 14 -- -- 11/02/24 1727 113/74 -- -- 79 11 100 % -- 11/02/24 1724 108/74 -- -- 69 (!) 7 100 % -- 11/02/24 1721 120/84 -- -- 67 14 100 % -- 11/02/24 1718 124/85 -- -- 69 12 -- -- 11/02/24 1715 124/77 -- -- 68 13 -- -- 11/02/24 1712 114/78 -- -- 70 (!) 9 -- -- 11/02/24 1709 121/78 -- -- 71 10 -- -- 11/02/24 1706 98/74 -- -- 68 11 -- -- 11/02/24 1703 (!) 95/48 -- -- 69 18 -- -- 11/02/24 1700 (!) 129/97 -- -- 70 16 -- -- 11/02/24 1657 123/85 -- -- 69 19 -- -- 11/02/24 1645 139/90 -- -- 72 13 99 % -- 11/02/24 1630 130/88 -- -- 72 13 100 % -- 11/02/24 1615 122/90 -- -- 72 13 97 % -- 11/02/24 1600 130/69 -- -- 80 16 100 % -- 11/02/24 1545 115/80 -- -- 71 12 99 % -- 11/02/24 1530 118/82 -- -- 78 13 100 % -- 11/02/24 1522 125/79 -- -- 80 14 97 % -- 11/02/24 1454 -- -- -- -- -- 97 % -- 11/02/24 1453 110/70 -- -- 75 19 97 % -- 11/02/24 1335 -- -- -- -- -- 98 % -- 11/02/24 1334 130/79 -- -- 76 16 96 % -- 11/02/24 1145 98/64 35.9 ??C (96.7 ??F) Temporal 85 13 99 % -- Physical Examination: Physical Exam Constitutional: General: She is not in acute distress. Appearance: Normal appearance. She is normal weight. She is not ill-appearing. HENT: Head: Normocephalic and atraumatic. Nose: No congestion or rhinorrhea. Mouth/Throat: Mouth: Mucous membranes are moist. Eyes: General: No scleral icterus. Extraocular Movements: Extraocular movements intact. Conjunctiva/sclera: Conjunctivae normal. Pupils: Pupils are equal, round, and reactive to light. Cardiovascular: Rate and Rhythm: Normal rate and regular rhythm. Pulses: Normal pulses. Heart sounds: Normal heart sounds. No murmur heard. Pulmonary: Effort: Pulmonary effort is normal. No respiratory distress. Breath sounds: Normal breath sounds. No wheezing. Abdominal: General: Abdomen is flat. Bowel sounds are normal. There is no distension. Palpations: Abdomen is soft. Tenderness: There is no abdominal tenderness. There is no guarding. Musculoskeletal: General: No swelling. Right lower leg: No edema. Left lower leg: No edema. Skin: General: Skin is warm. Coloration: Skin is not jaundiced or pale. Neurological: General: No focal deficit present. Mental Status: She is alert and oriented to person, place, and time. Mental status is at baseline. Cranial Nerves: No cranial nerve deficit. Motor: No weakness. Psychiatric: Mood and Affect: Mood normal. Behavior: Behavior normal. Thought Content: Thought content normal. Judgment: Judgment normal. Relevant Lab Results Encounter Date: 10/30/24 ECG 12 lead Result Value Ventricular Rate 74 Atrial Rate 74 MA Interval 138 QRS DURATION 84 QT Interval 454 QTC CALCULATION(BAZETT) 503 P [place] 54 R-[place] 41 T Wave [place] 77 Impression Normal sinus rhythm T abnormalities consider high lateral ischemia Mild ST elevation in V2 and V3 , consider acute septal injury Abnormal ECG Confirmed by Griffin Diaz ([id number]) on 11/02/2024 10:58:13 PM No results found for: CKTOTAL , CKMB , CKMBINDEX , TROPONINI Limited Echo (TTE) w/wo Limited Doppler, Color Flow, Imaging Agent, Strain, 3D, Bubble Study Result Date: 10/31/2024 1 1 [facility] Heart Station [address] [place] [address] [phone] (fax) Echocardiogram-[facility] Name: JUAN KONG Study Date: 10/31/2024 11:16 AM B/P: 106 mmHg/67 mmHg HR: 70 bpm Date of : 1990 [facility] Age: 34 year(s) Patient Room: 3187 Weight: 181 lb. Gender: Female Patient Status: InPt BSA: 1.92 m2 Indication: Chest Pain, gartroparesis, limited echo to assess CP Examination: Limited Echo, Color flow imaging, Lumason Contrast Image Quality: Fair Patient Consent: Procedure explained to patient Exam Details Contrast: I.V. dose of Lumason Conclusions Left Ventricle: Global left vent ricular systolic function is at lower limits of normal. The calculated Biplane EF is 53 %. EF rangeis estimated at 50 % -55 %. Left ventricular wall thickness is normal. Regional wall motion abnormalities (see diagram). Right Ventricle: The right ventricle is normal in size. Normal right ventricular systolic function. Unable to assess right sided pressures due to lack of measurable tricuspid regurgitation. Left Atrium: The left atrium is normal in size. Pericardium: There is a minimal pericardial effusion. Overall Conclusions: Due to suboptimal imaging Lumason contrast was administered for opacification and better delineation of endocardial borders. Measurements Left Ventricle Label Value Normal Value LVDd, 2D 4.71 cm (3.9cm - 5.3cm) LVDs, 2D 2.96 cm (2.1cm - 4cm) IVSd, 2D 0.7 cm (0.6cm - 1.1cm) LVPWd, 2D 0.83 cm (0.6cm - 0.9cm) LVEF, BP 53 % (55% - 65%) LV Mass, 2D ASE 115.82 g LV Mass Index, 2D ASE 60.3 g/m?? (44g/m?? - 88.4g/m??) RWT, MM 0.35 (0 - 0.42) LVSVI, 2D 35.9 ml/m2 Aorta Label Value Normal Value AoRoot, 2D 2.5 cm (1.4cm - 3.8cm) Valvular Assessment LVOT 0.7 - 1.1 m/sec Aortic Valve 1.0 - 1.7 m/sec Mitral Valve 0.6 - 1.3 m/sec Tricuspid Valve 0.3 - 0.7 m/sec Pulmonic Valve 0.6 - 0.9 m/sec Regurgitation No No No No Findings Left Ventricle: Global left ventricular systolic function is at lower limits of normal. The calculated Biplane EF is 53 %. EF range is estimatedat 50 % -55 %. Left ventricular wall thickness is normal. Regional wall motion abnormalities (see diagram). The basal inferolateral, mid anterior, mid anteroseptal, mid inferoseptal, mid inferolateral and apical lateral left ventricular wall segments are hypokinetic. All remaining scored left ventricular wall segments are with no wall motion abnormalities. Right Ventricle: The right ventricle is normal in size. Normal right ventricular systolic function. Unable to assess right sided pressures due to lack of measurable tricuspid regurgitation. Left Atrium: The left atrium is normal in size. Right Atrium: The right atrium is normal in size. Mitral Valve: The mitral valve is normal in mobilityand thickness. No mitral regurgitation. Aortic Valve: The aortic valve is normal. No aortic valve regurgitation. Tricuspid Valve: Normal tricuspid valve. No tricuspid regurgitation. Pulmonic Valve: Normal pulmonary valve. No pulmonary regurgitation. Aorta: The aortic root exhibits normal size. Great Vessels: IVC: The IVC is not visualized. Pericardium: There is a minimal pericardial effusion. Procedure Staff Reading Group: [facility] Finisher Wallboard And Plasterboard: DAVID Kearney, RDCS Ordering Physician: [place] RITTER Wall Motion Scores -1 - hyperkinesia, 0 - not evaluated, 1 - normal, 2 - hypokinesia, 3 - akinesia, 4 - dyskinesia No nuclear medicine results found for the past 12 months Relevant Imaging Results ECG 12 lead Normal sinus rhythm T abnormalities consider high lateral ischemia Mild ST elevation in V2 and V3 , consider acute septal injury Abnormal ECG Confirmed by Griffin Diaz ([id number]) on 11/02/2024 10:58:13 PM Cardiac catheterization PROCEDURE PHYSICIAN: Wali Collins MD Clinical Presentation: 34 y.o. 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 The MLA by IVUS was 2.9 mm2 2) Non-significant iFR of 0.92 and 0.93 Recommendations: 1) Continued medical management of non-flow limiting coronary dissection with addition of calcium antagonist for possible coronary spasm at the site of dissection Procedures Performed: coronary angiography, intravascular ultrasound LAD, iFR determination Omni guidewire, conscious sedation (see attached sheet for details), ultrasound guidance for vascular access Procedure Description: Due to recurrent chest pain and increase in troponin values the patient was brought to the cardiac catheterization lab . Informed written consent was obtained. she was prepped and draped in usual sterile fashion. Time-out was performed. she was given Versed and fentanyl for sedation. 1% lidocaine was infiltrated over the right femoral artery. A 6-Iranian sheath was placed in right femoral artery. Coronary angiography was performed with a JL4 and then repeated after IC nitroglycerin 50 mcg x 2. At this time, it was apparent that the LAD had a moderate stenosis and IVUS and iFR were performed. Heparin anticoagulation was used for this procedure. ACT was maintained at >250 seconds. A 6 Iranian xb3 was engaged to the [place]. I then advanced a 0.014 guidewire to the distal left anterior descending. IVUS imaging was performed with a Refinity catheter after additional IC nitroglycerin and IV nitroglycerin Next, an Omni wire was placed and an iFR performed x2 after normalizing pressures. After completion of the procedure all catheters and wires were removed. The right femoral sheath was removed and manual pressure was applied to obtain hemostasis. Specimens Removed: None Complications: None Coronary Angiogram: Left main: Normal LAD: In the mid vessel there is an area of myocardial bridging followed by a discrete angiographic stenosis. The entire segment increased in diameter with IV nitroglycerin. On the delayed image there is persistence of contrast along the lateral wall of the LAD in a linear fashion consistent with but not diagnostic for a dissection flap LCX: Normal RCA: not imaged. Was imaged one and two days prior Intravascular ultrasound: In the mid vessel there is an atherosclerotic plaque with a MLA of 2.9 mm2 Distal to this the vessel is 3 mm in diameter. At the site of plaque there is a discrete dissection. Before the plaque there is myocardial bridging with some dissection of the intima evident Cardiac catheterization PROCEDURE PHYSICIAN: Tino Gilmore MD . Indications: Juan Kong is a 34 y.o. female who is admitted with chest pain and elevated troponin as well as EKG changes. She was diagnosed NSTEMI and referred for cardiac catheterization. Assistants: Cardiovascular Fellow Dr Janet Soto. Procedure Performed: Coronary angiogram. Left heart catheterization. Administration of intraarterial nitroglycerin to treat radial artery spasm. Access into the left radial artery under ultrasound guidance. Methods: Procedure was explained to the patient with risks and benefits; she signed informed consent. 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 The left wrist area was prepped and draped in usual fashion. Micropuncture technique was used for access in the radial artery. A 5-Iranian x 11 cm sheath was placed. Verapamil was given through the sheath, and heparin was administered intravenously. A 5 Iranian JR4 diagnostic catheter was advanced and this was used to perform left heart catheterization with measurement of pressures. Pullback across aortic valve was performed with measurement of pressures. The catheter was used to attempt engagement of the right coronary artery however this was not possible. At this point the patient started developing radial artery spasm. This was treated by administration of intra-arterial nitroglycerin. The catheter was then downsized to a 4 Iranian JR4 diagnostic catheter however this also was not able to engage the right coronary artery. Catheter was exchanged to a JR4 diagnostic catheter which could not engage the left coronary artery. Catheter was exchanged to a 4 Iranian JL 3.5 diagnostic catheter which eventually was able to engage the left coronary artery. Angiography was performed in multiple views. Catheter was exchanged over the wire to a 4 Iranian 3DRC catheter. Multiple attempts were made to engage the right coronary artery however these failed. Nonselective aortic root angiography was performed however there was no evidence of opacification of the origin of the right coronary artery. At this point the patient developed additional spasm in the radial artery with significant pain which prevented further manipulation of the catheter. At this point the catheter was retracted. Intra-arterial nitroglycerin was administered through the radial sheath. The procedure was concluded. Hemostasis was achieved by TR band in the radial artery. she tolerated the procedure well and was transferred back to the hospital room. Hemodynamic Data: LV: 159/9, 19 AO: 159/92 (121) Coronary angiography: This is a left-dominant circulation. Left Main: This arises from the left coronary cusp. It bifurcates into left anterior descending and circumflex vessels. This is angiographically normal. Left anterior descending: Mild disease is noted in the mid segment of the LAD. The rest of the LAD is free of disease. Circumflex: This is a dominant vessel. This is angiographically normal. Right coronary artery: There was inability to engage the right coronary artery and the origin of the artery was not apparent on nonselective aortic root injections. 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 Impression/Findings: Mild disease in the LAD. 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 Mildly to moderately elevated left filling pressures. No aortic stenosis. Plan: Aspirin 81 mg daily. Statin therapy. The patient will be scheduled for cardiac catheterization to be performed from the femoral access given limitations of radial access due to spasm. Further recommendations per inpatient Cardiology service. 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 SCAD type III in mid LAD T2DM Morbid obesity s/p sleeve gastrectomy IBS HTN HLD RICHAR GERD Hypothyroidism Asthma H/O median arcuate ligament syndrome s/p celiac plexus block and MALS release H/O extensive chronic adhesions and recurrent obstructions Gastroparesis s/p daily infusions and J-tube C/B infection and removal Fibromyalgia PLAN Okay to restart aspirin and Plavix Closely monitor Hgb Continue Toprol 12.5 mg Monitor tonight and patient will likely stay for appropriate evaluation until Wednesday Rest of care per primary team Cardiology will continue following along This note was, at least in part, completed using a voice animal husbandry manager system. Every effort was made to ensure accuracy. However, inadvertent computerized animal husbandry manager errors may be present. Lisa Pena DO Internal Medicine Resident, PGY-2 [facility] 11:18 AM 11/03/24 [1] Current Facility-Administered Medications: acetaminophen (Tylenol) tablet 650 mg, 650 mg, oral, q8h PRN, HENNY Sanon-C Adult Cyclic 3-in-1 TPN, 2,200 mL, intravenous, Cyclic TPN, Kaye [place], RD albuterol 90 mcg/actuation inhaler 2 puff, 2 puff, inhalation, q6h PRN, Debbie Luna CNP atorvastatin (Lipitor) tablet 80 mg, 80 mg, oral, Nightly, Rosa Willoughby PA-C glucose chewable tablet 24 g, 24 g, oral, q15 min PRN OR dextrose 50 % in water (D50W) syringe 25 g, 25 g, intravenous, q15 min PRN, Debbie Luna CNP, 25 g at 10/31/24 1228 diphenhydrAMINE (BENADryl) injection 12.5 mg, 12.5 mg, intravenous, q6h PRN, Ky Ritter MD, 12.5 mg at 11/02/24 0557 enoxaparin (Lovenox) syringe 30 mg, 30 mg, subcutaneous, BID, Sid Cruz PA-C, 30 mg at 11/03/24 1012 escitalopram (Lexapro) tablet 20 mg, 20 mg, oral, Daily, Rosa Willoughby PA-C, 20 mg at 11/03/24 1012 fentaNYL (Duragesic) 25 mcg/hr 1 patch, 1 patch, transdermal, q72h, Rosa Willoughby PA-C HYDROcodone-acetaminophen (Marcellus) 5-325 mg per tablet 1 tablet, 1 tablet, oral, q4h PRN, 1 tablet at 11/03/24 1011 OR HYDROcodone-acetaminophen (Marcellus) 5- 325 mg per tablet 2 tablet, 2 tablet, oral, q4h PRN, Ky Ritter MD, 2 tablet at 11/03/24 0608 hydrocortisone (Cortef) tablet 10 mg, 10 mg, oral, Daily, Debbie Luna CNP, 10 mg at 11/03/24 1014 hydrOXYzine pamoate (Vistaril) capsule 50 mg, 50 mg, oral, Nightly PRN, Debbie Luna CNP insulin lispro (HumaLOG) injection 0-5 Units, 0-5 Units, subcutaneous, TID with meals AND insulin lispro (HumaLOG) injection 0-4 Units, 0-4 Units, subcutaneous, Nightly, Rosa Willoughby PA-C levothyroxine (Synthroid, Levoxyl) tablet 75 mcg, 75 mcg, oral, Daily before breakfast, Rosa Willoughby PA-C, 75 mcg at 11/03/24 0607 liothyronine (Cytomel) tablet 5 mcg, 5 mcg, oral, Daily, Rosa Willoughby PA-C, 5 mcg at 11/03/24 1012 magnesium oxide (Mag-Ox) tablet 400 mg, 400 mg, oral, q8h PRN, Rosa Willoughby PA-C magnesium sulfate in D5W IVPB 1 g, 1 g, intravenous, q1h PRN, Rosa Willoughby PA-C magnesium sulfate in D5W IVPB 1 g, 1 g, intravenous, q1h PRN, Rosa Willoughby PA-C magnesium sulfate in D5W IVPB 1 g, 1 g, intravenous, q1h PRN, Rosa Willoughby PA-C magnesium sulfate in D5W IVPB 1 g, 1 g, intravenous, q1h PRN, Rosa Willoughby PA-C melatonin tablet 5 mg, 5 mg, oral, Nightly PRN, Debbie Luna CNP methocarbamol (Robaxin) tablet 750 mg, 750 mg, oral, 4x daily, Rosa Willoughby PA-C, 750 mg at 11/03/24 1013 metoclopramide (Reglan) tablet 10 mg, 10 mg, oral, Daily PRN, Debbie Luna CNP, 10 mg at 11/03/24 0840 metoprolol succinate XL (Toprol-XL) 24 hr split tablet 12.5 mg, 12.5 mg, oral, Daily, Rosa Willoughby PA-C, 12.5 mg at 11/03/24 1014 mirtazapine (Remeron) tablet 45 mg, 45 mg, oral, Nightly, Rosa Willoughby PA-C pantoprazole (ProtoNix) EC tablet 40 mg, 40 mg, oral, BID AC, Rosa Willoughby PA-C, 40 mg at 11/03/24 0607 potassium chloride CR (Klor-Con M20) ER tablet 20 mEq, 20 mEq, oral, q1h PRN, Rosa Willoughby PA-C potassium chloride CR (Klor-Con M20) ER tablet 20 mEq, 20 mEq, oral, q1h PRN, Rosa Willoughby PA-C potassium chloride CR (Klor-Con M20) ER tablet 20 mEq, 20 mEq, oral, q1h PRN, HENNY Hendrickson-Elroy potassium chloride IVPB 10 mEq, 10 mEq, intravenous, q1h PRN AND potassium chloride CR (Klor-Con M20) ER tablet 40 mEq, 40 mEq, oral, q2h PRN, Rosa Willoughby PA-C potassium chloride IVPB 10 mEq, 10 mEq, intravenous, q1h PRN, HENNY Hendrickson-[place]roy potassium chloride IVPB 10 mEq, 10 mEq, intravenous, q1h PRN, HENNY Hendrickson-[place]roy potassium chloride IVPB 10 mEq, 10 mEq, intravenous, q1h PRN, HENNY Hendrickson-[place]roy potassium chloride IVPB 10 mEq, 10 mEq, intravenous, q1h PRN, HENNY Hendrickson-[place]roy prochlorperazine (Compazine) injection 10 mg, 10 mg, intravenous, Once, Janet Soto MD prochlorperazine (Compazine) injection 5 mg, 5 mg, intravenous, Once PRN, Robin Luz MD sennosides-docusate sodium (Kadie-Colace) 8.6-50 mg per tablet 1 tablet, 1 tablet, oral, Nightly PRN, Rosa Willoughby PA-C sod phos di, mono-K phos mono (K Phos Neutral) tablet 2 tablet, 500 mg, oral, q4h PRN, Rosa Willoughby PA-C sod phos di, mono-K phos mono (K Phos Neutral) tablet 4 tablet, 1,000 mg, oral, q4h PRN, Rosa Willoughby PA-C [CANCELED] Insert peripheral IV, , , Once AND [CANCELED] Saline lock IV, , , Once AND sodium chloride flush 10 mL, 10 mL, intravenous, q8h PRN, Debbie Luna CNP sucralfate (Carafate) tablet 1 g, 1 g, oral, Before meals & nightly, Rosa Willoughby PA-C, 1 g at 11/03/24 1013 topiramate (Topamax) tablet 100 mg, 100 mg, oral, BID, Rosa Willoughby PA-C, 100 mg at 11/03/24 1013 traMADol (Ultram) tablet 50 mg, 50 mg, oral, q6h PRN, Debbie Pirkl, BEEF SPECIALIST, 50 mg at 11/03/24 0838 traZODone (Desyrel) tablet 100 mg, 100 mg, oral, Nightly, Rosa Willoughby PA-C trimethobenzamide (Tigan) injection 200 mg, 200 mg, intramuscular, q6h PRN, Debbie Pirkl, BEEF SPECIALIST, 200 mg at 11/03/24 0018 Cosigned by Katie Altamirano MD at 11/03/2024 11:42 AM EDT Associated attestation - Katie Altamirano MD - 11/03/2024 11:42 AM EDT By using the attestations below, the signing clinician agrees that I have read and verify that thedocumentation has been personally reviewed by me and ensure that the documentation accurately reflects the encounter. GC: I personally saw this patient on the day of the encounter, performed the paula portion(s) of the service and participated in the management and confirm the resident's documentation. Please note there may be an additional personal documentation from me. Additional Comments: Events of yesterday evening noted; unfortunately the patient developed a significant postproceduralhematoma and inability to control bleeding with manual pressure. Greatly appreciate vascular surgery's intervention and management. Continues to have chest pain albeit less severe. We will optimize medical therapy for presumed superimposed coronary vasospasm on top of underlying focal spontaneous coronary artery dissection and myocardial bridge. Should the patient experience significantly worsening chest pain, EKG changes, or hemodynamic instability, she may require a repeat invasive angiogram and coronary intervention Katie Altamirano MD, MPH, FACC, [facility], [facility] Interventional Cardiology Pager Email: [email or web address] * Sid Cruz PA-C - 11/03/2024 8:12 AM EDT Images from the original note were not included. [facility] Surgical Intensive Care Unit Progress Note Chief Complaint: Critical Care Management Primary Service: Vascular Surgery HPI: 34 y.o. year old female with past medical history of hypertension, hyperlipidemia, asthma, RICHAR, hypothyroidism, GERD, IBS, DM2, median arcuate ligament syndrome s/p celiac plexus block and then MALS release, morbid obesity s/p sleeve gastrectomy, extensive chronic adhesions and recurrent obstructions, gastroparesis s/p J-tube and removal d/t infection, failure to thrive who presented as a transfer from [place]. She had an NSTEMI and underwent a cardiac cath on 10/31, 11/01, and 11/02 After the cardiac cath, the patient has been having increased pain and expanding right groin hematoma. She was taken to the OR tonight by the vascular team and underwent a right groin hematoma evacuation. Patient received two units of PRBCs in the OR. Upon arrival in the SICU, the patient is alert and oriented. She states that she is having some pain in the right groin site and sleepy but no other concerns. She is able to answer all questions. Interval History: 11/03: Hgb remain stable post op. Groin site remains soft and compressible, no evidence of expandinghematoma. GONSALO drain with minimal serosanguinous output. Hold DAPT per vascular until tomorrow 11/02: Patient went for second femoral cardiac cath due to ongoing chest pain. Developed R groin hematoma post cath. OR with vascular for hematoma evac and R pseudoaneurysm repair. Now with GONSALO drain in place at R groin site. Objective Vitals: BP: (77-139)/(44-97) 113/72 (11/03 0600) Girls Systolic BP Percentile: -- Girls Diastolic BP Percentile: -- Boys Systolic BP Percentile: -- Boys Diastolic BP Percentile: -- Temp: [35.9 ??C (96.7 ??F)-36.6 ??C (97.8 ??F)] 36.6 ??C (97.8 ??F) (11/03 0000) Temp Source: Oral (11/03) Heart Rate: [66-120] 87 (11/03 599) Resp: [7-27] 16 (11/03 599) SpO2: [94 %-100 %] 98 % (11/03 599) Height: -- Weight: [84.8 kg (186 lb 15.2 oz)] 84.8 kg (186 lb 15.2 oz) (11/03) Kris Coma Scale Score: 15 I/O last 3 completed shifts: In: 7216.8 (85.1 mL/kg) [P.O.:1060; I.V.:3136.4 (37 mL/kg); Blood:700; IV Piggyback:505.5] Out: 6980 (82.3 mL/kg) [Urine:6800 (2.2 mL/kg/hr); Drains:150; Blood:30] Weight: 84.8 kg Physical Exam Constitutional: Appearance: Normal appearance. HENT: Head: Normocephalic and atraumatic. Mouth/Throat: Mouth: Mucous membranes are moist. Pharynx: Oropharynx is clear. Eyes: Extraocular Movements: Extraocular movements intact. Pupils: Pupils are equal, round, and reactive to light. Cardiovascular: Rate and Rhythm: Normal rate and regular rhythm. Pulses: Normal pulses. Heart sounds: Normal heart sounds. No murmur heard. Pulmonary: Effort: Pulmonary effort is normal. No respiratory distress. Breath sounds: Normal breath sounds. No wheezing. Abdominal: General: Abdomen is flat. There is no distension. Palpations: Abdomen is soft. Tenderness: There is no abdominal tenderness. There is no guarding. Musculoskeletal: General: Normal range of motion. Cervical back: Normal range of motion. Comments: Right groin site remains soft/ compressible, no evidence of expanding hematoma. Dressing in clean, dry, intact. Mildly TTP. GONSALO drain to right groin site with serosanguinous fluid, Pulse, motor, and sensation intact in RLE. Pulse, motor, and sensation intact LLE and BUE. Skin: General: Skin is warm and dry. Capillary Refill: Capillary refill takes less than 2 seconds. Neurological: General: No focal deficit present. Mental Status: She is alert and oriented to person, place, and time. Sensory: No sensory deficit. Psychiatric: Mood and Affect: Mood normal. Behavior: Behavior normal. Labs: Recent Results (from the past 12 hours) POCT glucose meter Collection Time: 11/02/24 8:30 PM Result Value Ref Range Glucose POC 160 (H) 70 - 105 mg/dL POCT glucose meter Collection Time: 11/02/24 10:48 PM Result Value Ref Range Glucose POC 151 (H) 70 - 105 mg/dL Protime-INR Collection Time: 11/03/24 12:07 AM Result Value Ref Range Protime 14.9 (H) 12.3 - 14.8 Seconds INR 1.17 (H) 0.90 - 1.10 Fibrinogen Collection Time: 11/03/24 12:07 AM Result Value Ref Range Fibrinogen 328 150 - 425 mg/dL Basic metabolic panel Collection Time: 11/03/24 12:07 AM Result Value Ref Range Sodium 135 (L) 136 - 145 mmol/L Potassium 4.9 3.5 - 5.1 mmol/L Chloride 110 (H) 98 - 107 mmol/L CO2 20 (L) 21 - 31 mmol/L BUN 8 7 - 25 mg/dL Creatinine 0.53 (L) 0.60 - 1.20 mg/dL Glucose 168 (H) 70 - 100 mg/dL Calcium 7.6 (L) 8.6 - 10.3 mg/dL Anion Gap 10 7 - 20 mmol/L eGFR 123.6 >60.0 mL/min/1.73m*2 BUN/Creatinine Ratio 15.1 Magnesium Collection Time: 11/03/24 12:07 AM Result Value Ref Range Magnesium 1.5 (L) 1.9 - 2.7 mg/dL Phosphorus Collection Time: 11/03/24 12:07 AM Result Value Ref Range Phosphorus 2.7 2.5 - 5.0 mg/dL CBC Collection Time: 11/03/24 12:07 AM Result Value Ref Range Auto WBC 7.71 4.00 - 10.60 10*3/uL RBC 3.26 (L) 3.80 - 5.00 10*6/uL Hemoglobin 9.7 (L) 12.0 - 15.0 g/dL Hematocrit 29.0 (L) 36.0 - 45.0 % MCV 89.0 82.0 - 98.0 fL MCH 29.8 27.0 - 33.0 pg MCHC 33.4 32.0 - 35.0 g/dL RDW 13.3 11.5 - 15.0 % Platelets 216 150 - 400 10*3/uL FIBTEM C Collection Time: 11/03/24 1:58 AM Result Value Ref Range FIBTEM C AMPLITUDE 5 MIN 12 5 - 16 mm FIBTEM C AMPLITUDE 10 MIN 13 6 - 17 mm FIBTEM C AMPLITUDE 20 MIN 14 6 - 18 mm FIBTEM C MAXIMUM CLOT FIRMNESS 15 6 - 19 mm EXTEM C Collection Time: 11/03/24 1:58 AM Result Value Ref Range EXTEM C CLOTTING TIME 51 51 - 73 s EXTEM C AMPLITUDE 5 MIN 52 33 - 52 mm EXTEM C AMPLITUDE 10 MIN 61 45 - 62 mm EXTEM C AMPLITUDE 20 MIN 67 54 - 69 mm EXTEM C MAXIMUM CLOT FIRMNESS 68 57 - 72 mm EXTEM C LYSIS INDEX 60 MIN 96 94 - 100 % EXTEM C MAXIMUM LYSIS 10 (H) 0 - 6 % HEPTEM C Collection Time: 11/03/24 1:58 AM Result Value Ref Range HEPTEM C CLOTTING TIME 168 141 - 215 s HEPTEM C AMPLITUDE 5 MIN 46 33 - 51 mm HEPTEM C AMPLITUDE 10 MIN 56 44 - 61 mm HEPTEM C AMPLITUDE 20 MIN 62 52 - 67 mm HEPTEM C MAXIMUM CLOT FIRMNESS 63 54 - 69 mm INTEM C Collection Time: 11/03/24 1:58 AM Result Value Ref Range INTEM C CLOTTING TIME 169 139 - 205 s INTEM C AMPLITUDE 5 MIN 48 36 - 54 mm INTEM C AMPLITUDE 10 MIN 57 46 - 63 mm INTEM C AMPLITUDE 20 MIN 63 53 - 68 mm INTEM C MAXIMUM CLOT FIRMNESS 63 55 - 70 mm INTEM C LYSIS INDEX 60 MIN 95 93 - 100 % INTEM C MAXIMUM LYSIS 12 (H) 0 - 7 % Basic metabolic panel Collection Time: 11/03/24 4:46 AM Result Value Ref Range Sodium 136 136 - 145 mmol/L Potassium 4.4 3.5 - 5.1 mmol/L Chloride 108 (H) 98 - 107 mmol/L CO2 22 21 - 31 mmol/L BUN 6 (L) 7 - 25 mg/dL Creatinine 0.52 (L) 0.60 - 1.20 mg/dL Glucose 170 (H) 70 - 100 mg/dL Calcium 7.9 (L) 8.6 - 10.3 mg/dL Anion Gap 10 7 - 20 mmol/L eGFR 124.2 >60.0 mL/min/1.73m*2 BUN/Creatinine Ratio 11.5 Magnesium Collection Time: 11/03/24 4:46 AM Result Value Ref Range Magnesium 2.2 1.9 - 2.7 mg/dL Phosphorus Collection Time: 11/03/24 4:46 AM Result Value Ref Range Phosphorus 3.7 2.5 - 5.0 mg/dL Calcium, ionized Collection Time: 11/03/24 4:46 AM Result Value Ref Range Calcium, Ion 1.16 1.15 - 1.33 mmol/L CBC Collection Time: 11/03/24 4:46 AM Result Value Ref Range Auto WBC 6.23 4.00 - 10.60 10*3/uL RBC 3.23 (L) 3.80 - 5.00 10*6/uL Hemoglobin 9.5 (L) 12.0 - 15.0 g/dL Hematocrit 28.7 (L) 36.0 - 45.0 % MCV 88.9 82.0 - 98.0 fL MCH 29.4 27.0 - 33.0 pg MCHC 33.1 32.0 - 35.0 g/dL RDW 13.6 11.5 - 15.0 % Platelets 248 150 - 400 10*3/uL POCT glucose meter Collection Time: 11/03/24 7:46 AM Result Value Ref Range Glucose POC 135 (H) 70 - 105 mg/dL Radiologic studies: No X-ray results found for the past [address] results found for the past 24 hours No MRI results found for the past 24 hours EKG: Encounter Date: 10/30/24 ECG 12 lead Result Value Ventricular Rate 74 Atrial Rate 74 MA Interval 138 QRS DURATION 84 QT Interval 454 QTC CALCULATION(BAZETT) 503 P [place] 54 R-[place] 41 T Wave [place] 77 Impression Normal sinus rhythm T abnormalities consider high lateral ischemia Mild ST elevation in V2 and V3 , consider acute septal injury Abnormal ECG Confirmed by Griffin Diaz ([id number]) on 11/02/2024 10:58:13 PM Assessment TThe patient is a 34 y.o. 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 Then just aspirinindefinitely thereafter -may have to consider interventional therapy for the SCAD with either [place] Ball[place] angioplasty and/or stent placement should patient continue to have refractory angina, EKG changes, significant changes in troponin level -Monitor for refractory angina, significant EKG changes, or further increases in her troponin level -Continue home metoprolol and Lipitor - Ok to resume DAPT 11/03 per vascular surgery - Monitor H/H closely - Vascular surgery consulted for right groin hematoma post cardiac catheterization on 11/02, Recommendations: - Patient taken to the OR on 11/02 for right groin hematoma evacuation pseudoaneurysm repair -Activity, patient may sit up 11/03, will ambulate tomorrow -Q4H neurovascular checks - Monitor H/H closely - Apply sand bag and Ice to right groin site - Ok for DVT ppx 11/03 Respiratory: No acute issues -Incentive spirometry every 1 hour while awake FEN/GI: Gastroparesis, protein calorie malnutrition -Daily labs reviewed 11/03/24, Electrolytes replaced 11/03/24: None -Continue patient on SICU electrolyte replacement protocol -Diet: Heart healthy diet, TPN supplementation Wednesday/Wednesday/Wednesday -Patient requires TPN supplementation given history of gastroparesis and protein calorie malnutrition via right subclavian tunneled CVC -Nutrition consulted for resuming TPN -GI: Protonix -Bowel regimen: As needed Kadie-Colace : Urinary retention - Patient required straight cath overnight 11/02 with 1800 ml out - Patient reports chronic urinary retention at home requiring prior costello catheter placement - Consult urology to place costello catheter today and for difficult straight catheterization - Strict Is and Os Intake/Output Summary (Last 24 hours) at 11/03/2024 0904 Last data filed at 11/03/2024 0800 Gross per 24 hour Intake 3765.93 ml Output 3400 ml Net 365.93 ml MSK: Right Groin Hematoma -Activity: Up as tolerated with assistance, fall precautions -Offloading while in bed -Management of right groin hematoma per vascular surgery as above Heme/ID: -Check daily labs -Patient received 2 unit PRBC in OR -hemoglobin stable postoperatively at 9.5 11/03 -Abx: Not indicated Endo: Type 2 DM -Monitor blood glucose AC/HS -ISS Lines: -PIV - Right groin GONSALO drain -Tunnel R subclavian CVC Prophylaxis: -GI: Protonix -Bowel regimen: Kadie-Colace as needed -DVT: SCDs, Ok for chemical DVT ppx per vascular, start Lovenox 30 mg BID Other: -CODE STATUS: Full Code -Restart home meds once reconciled Dispo: - Remain in SICU today per vascular - Likely transfer out tomorrow Critical Care statement: The patient is critically ill and requires high complexity decision making for assessment and support including but not limited to: frequent evaluation and titration of therapies; extensive interpretation of multiple databases; application of advanced monitoring technologies and assessment and treatment of complex metabolic derangement. There was a high probability of clinically significant/life threatening deterioration in this patient's condition which required my urgent intervention. Total critical care time was 35 minutes. This excludes any time for separately reportable procedures. Cosigned by Tomasa Disla MD at 11/10/2024 11:06 AM EDT * Ky Ritter MD - 11/02/2024 1:27 PM EDT Images from the original note were not included. [facility] Medicine Daily Progress Note - 11/02/2024 1:27 PM; Room: [address] [place] [address] Admission: 10/30/2024 6:28 PM; Length of stay: 3 days THE HOSPITALIST TEAM PREFERS TO USE [employer] CHAT FOR NON-URGENT COMMUNICATION 7AM- 7PM. IF I DO NOT RESPOND WITHIN 20 MINUTES OR URGENT MATTERS, PLEASE CALL THROUGH THE INFECTION CONTROL SPECIALIST. FROM 7PM-7AM, PLEASE PAGE [phone](COVR). Code Status: Full Code Barriers to Discharge: chest pain Expected Discharge Date: 11/03 Discharge Destination: home Overview Patient is seen for evaluation and management of chest pain. Subjective patient seen and examined.This morning the patient was stating that she was having some abdominal tenderness around the site of old PEG. she was also having some nausea as well. Initially she was cleared for discharge however in early afternoon she began having recurrent chest pain radiating to armfor which cardiology evaluated and elected to bring the patient for repeat catheterization. Physical Exam Visit Vitals BP 98/64 (BP Location: Right arm, Patient Position: Lying) Pulse 85 Temp 35.9 ??C (96.7 ??F) (Temporal) Resp 13 Intake/Output Summary (Last 24 hours) at 11/02/2024 1327 Last data filed at 11/02/2024 0949 Gross per 24 hour Intake 4370.84 ml Output 3620 ml Net 750.84 ml Estimated body mass index is 30.21 kg/m?? as calculated from the following: Height as of this encounter: 1.676 m (5' 5.98 ). Weight as of this encounter: 84.9 kg (187 lb 1.6 oz). Constitutional: NAD, AOx3 Eyes: EOMI, normal conjunctiva Mouth: Moist, no lesions CV: RRR, normal S1-S2, no murmurs Resp: CTA, no crackles or wheezing Abd: Soft, Mild tenderness around site of old PEG without erythema or drainage Extremities: No swelling, 2+ distal pulses Neuro: AOx3, no focal deficits Psych: Appropriate mood and affect Assessment and Plan Assessment & Plan NSTEMI (non-ST elevated myocardial infarction) (CMS/HCC) Spontaneous dissection of coronary artery -Trop 390 at OSH, now downward trending -Continue heparin gtt -TTE showing mildly reduced EF 50-55% with WMA -Cardiology consulted; cardiac catheterization from radial approach yesterday showing mild LAD disease however due to radial artery spasms catheterization was incomplete - repeat catheterization from femoral access 11/01 showing type III spontaneous coronary artery dissection for which she was placed on dual antiplatelet therapy, statin, beta-reece - due to recurrence of chest pain today patient brought urgently 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 to 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[employer] Prolonged Q-T interval on ECG -QT mildly prolonged; read as 492 ms however calculation revealing 429 -Okay with reglan Type 2 diabetes mellitus without complication, without long-term current use of insulin ([facility]) - Patient currently taking metformin at home -Continue ISS ACHS Protein calorie malnutrition -Patient currently requiring TPN -Port to her right chest -Clinical dietitian consult Gastroparesis - atient initially with a J-tube in place, however, the JG became infected and had to be taken out -Patient reports plan for reinsertion in the near future Median arcuate ligament syndrome - S/p celiac plexus block and then MALS release GERD (gastroesophageal reflux disease) -Continue PPI Acquired hypothyroidism - Continue levothyroxine Asthma - Continue albuterol inhaler as needed IBS (irritable bowel syndrome) - Stable S/P laparoscopic sleeve gastrectomy - Stable Nutrition Screen: Malnutrition Attestation: No dietitian assessment is available at this time. VTE Prophylaxis: IV heparin Scheduled Meds aspirin, 81 mg, oral, Daily with breakfast atorvastatin, 80 mg, oral, Nightly clopidogrel, 75 mg, oral, Daily escitalopram, 20 mg, oral, Daily fentaNYL, 1 patch, transdermal, q72h heparin (porcine), 5,000 Units, subcutaneous, q8h TANIA hydrocortisone, 10 mg, oral, Daily insulin lispro, 0-5 Units, subcutaneous, TID with meals And insulin lispro, 0-4 Units, subcutaneous, Nightly levothyroxine, 75 mcg, oral, Daily before breakfast liothyronine, 5 mcg, oral, Daily methocarbamol, 750 mg, oral, 4x daily metoprolol succinate XL, 12.5 mg, oral, Daily mirtazapine, 45 mg, oral, Nightly pantoprazole, 40 mg, oral, BID AC sucralfate, 1 g, oral, Before meals & nightly topiramate, 100 mg, oral, BID traZODone, 100 mg, oral, Nightly Adult Cyclic 3-in-1 TPN, 2,300 mL, Last Rate: Stopped (11/02/24 1113) Pertinent Investigations Hematology: Results from last 7 days Lab Units 11/02/24 0615 11/01/24 1010 10/31/24 0610/30/241910 WBC AUTO 10*3/uL 4.49 4.80 < > 4.32 HEMOGLOBIN g/dL 10.8* 11.3* < > 9.7* HEMATOCRIT % 33.3* 34.6* < > 29.6* MCV fL 90.2 89.4 < > 89.7 PLATELETS AUTO 10*3/uL 292 300 < > 272 INR -- -- -- 1.15* < > = values in this interval not displayed. Chemistry: Results from last 7 days Lab Units 11/01/24 1010 10/31/2462610/30/241910 SODIUM mmol/L 137 140 139 POTASSIUM mmol/L 4.6 4.0 3.7 CHLORIDE mmol/L 106 110* 110* CO2 mmol/L 27 26 23 BUN mg/dL 9 5* 5* CREATININE mg/dL 0.53* 0.60 0.64 GLUCOSE mg/dL 98 83 101* MAGNESIUM mg/dL -- 1.8* 1.7* CALCIUM mg/dL 8.6 7.7* 7.8* PHOSPHORUS mg/dL -- -- 4.4 Results from last 7 days Lab Units 10/30/24 191 AST U/L 19 ALT U/L 7 ALK PHOS U/L 45 BILIRUBIN TOTAL mg/dL 0.2* Results from last 7 days Lab Units 11/02/24 1107 11/02/24 0731 11/01/24 2042 11/01/24 1804 11/01/24 1130 11/01/24 0743 POCT GLUCOSE mg/dL 115* 150* 106* 102 109* 162* Historical Values: (Includes values prior to this admission) Lab Results Component Value Date TSH 3.46 10/30/2024 HDL 43 10/31/2024 LDL 73 10/31/2024 No results found for: [id number] , IRON , TIBC , C3 , C4 , MISAEL , CANCA , ASO , PSA , CEA , CA125 , CA199 , AFP , CA153 Imaging ECG 12 lead Normal sinus rhythm Prolonged QT Abnormal ECG When compared with ECG of 02-NOV-2024 13:02, (unconfirmed) Premature ventricular complexes are no longer Present Cardiac catheterization PROCEDURE PHYSICIAN: Tino Gilmore MD . Indications: Juan Kong is a 34 y.o. female who is admitted with chest pain and elevated troponin as well as EKG changes. She was diagnosed NSTEMI and referred for cardiac catheterization. Assistants: Cardiovascular Fellow Dr Janet Soto. Procedure Performed: Coronary angiogram. Left heart catheterization. Administration of intraarterial nitroglycerin to treat radial artery spasm. Access into the left radial artery under ultrasound guidance. Methods: Procedure was explained to the patient with risks and benefits; she signed informed consent. 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 The left wrist area was prepped and draped in usual fashion. Micropuncture technique was used for access in the radial artery. A 5-Iranian x 11 cm sheath was placed. Verapamil was given through the sheath, and heparin was administered intravenously. A 5 Iranian JR4 diagnostic catheter was advanced and this was used to perform left heart catheterization with measurement of pressures. Pullback across aortic valve was performed with measurement of pressures. The catheter was used to attempt engagement of the right coronary artery however this was not possible. At this point the patient started developing radial artery spasm. This was treated by administration of intra-arterial nitroglycerin. The catheter was then downsized to a 4 Iranian JR4 diagnostic catheter however this also was not able to engage the right coronary artery. Catheter was exchanged to a JR4 diagnostic catheter which could not engage the left coronary artery. Catheter was exchanged to a 4 Iranian JL 3.5 diagnostic catheter which eventually was able to engage the left coronary artery. Angiography was performed in multiple views. Catheter was exchanged over the wire to a 4 Iranian 3DRC catheter. Multiple attempts were made to engage the right coronary artery however these failed. Nonselective aortic root angiography was performed however there was no evidence of opacification of the origin of the right coronary artery. At this point the patient developed additional spasm in the radial artery with significant pain which prevented further manipulation of the catheter. At this point the catheter was retracted. Intra-arterial nitroglycerin was administered through the radial sheath. The procedure was concluded. Hemostasis was achieved by TR band in the radial artery. she tolerated the procedure well and was transferred back to the hospital room. Hemodynamic Data: LV: 159/9, 19 AO: 159/92 (121) Coronary angiography: This is a left-dominant circulation. Left Main: This arises from the left coronary cusp. It bifurcates into left anterior descending and circumflex vessels. This is angiographically normal. Left anterior descending: Mild disease is noted in the mid segment of the LAD. The rest of the LAD is free of disease. Circumflex: This is a dominant vessel. This is angiographically normal. Right coronary artery: There was inability to engage the right coronary artery and the origin of the artery was not apparent on nonselective aortic root injections. 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 Impression/Findings: Mild disease in the LAD. 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 Mildly to moderately elevated left filling pressures. No aortic stenosis. Plan: Aspirin 81 mg daily. Statin therapy. The patient will be scheduled for cardiac catheterization to be performed from the femoral access given limitations of radial access due to spasm. Further recommendations per inpatient Cardiology service. Tino Gilmore MD Discharge Planning Expected Discharge Disposition: Home or Self Care () Signed Ky Ritter MD [facility] 11/02/2024 1:27 PM * LIA Shetty - 11/02/2024 9:55 AM EDT Discharge Planning Patient is medically ready for discharge. MIRYAM received information from [facility] patient was being served through their [place] branch. MIRYAM sent referral to them through [facility]. * Lisa Pena DO - 11/02/2024 9:08 AM EDT Cardiology Progress Note Subjective Subjective: 11/02/2024 Patient was seen and examined at bedside, no acute events overnight, vital signs are stable. Patient was cathed yesterday and found to have type III SCAD, and later this afternoon had 7 out of 10 sharp shooting chest pain in which she was cathed, repeat coronary angiogram was done. 11/01/2024 Underwent coronary angiogram yesterday but only left coronary artery was engaged. Repeat cath todayto assess the RCA. Patient reports intermittent chest pain and lightheadedness upon standing up. Denies shortness of breath. She is getting TPN at bedside. History: Juan Kong is a 34 y.o. female w/ PMHx of HTN, HLD, asthma, RICHAR, hypothyroidism, GERD, IBS, fibromyalgia, T2DM, median arcuate ligament syndrome s/p celiac plexus block and MALS release, morbid obesity s/p sleeve gastrectomy, extensive chronic adhesions and recurrent obstructions, and gastroparesis s/p multiple infusions and J-tube C/B infection and removal who came as a direct admission from [facility] due to chest pain. Patient states that the pain started after her qD infusions for gastroparesis and characterizes as sharp and radiating to her left arm, 10 out of 10. She states that the CP was associated with dizziness, shortness of breath, nausea, and vomiting. At this time, she states that she has been receivingLR infusions w/ Benadryl and Compazine daily for the past month, and at the beginning of when she was receiving it yesterday she started feeling severe chest pain. HST trending from 337 to 129 down to 61, and BNP 77. ECG shows NSR with HR 83, and some PVCs. Repeat ECG ordered, and patient has never had a cath. Previous echocardiogram showed normal results and was completed due to concern for endocarditis due to sepsis, however patient does not remember the exact results. Patient symptoms have improved and are now a 5 out of 10, with sporadic sharp pains but general dull pain. Patient's pain is reproducible with palpitation in the left axilla, and left chest region. Objective Current Medications[1] Objective: Patient Vitals for the past 24 hrs: BP Temp Temp src Pulse Resp SpO2 Weight 11/02/24 0856 (!) 117/44 -- -- 92 -- -- -- 11/02/24 0739 106/63 35.9 ??C (96.7 ??F) Temporal 67 10 97 % -- 11/02/24 0400 105/66 -- -- 82 11 97 % -- 11/02/24 0200 105/80 -- -- 78 11 97 % -- 11/02/24 0115 -- -- -- -- -- -- 84.9 kg (187 lb 1.6 oz) 11/02/24 0100 103/56 -- -- 85 20 97 % -- 11/02/24 0000 109/62 -- -- 90 10 95 % -- 11/01/24 2300 111/62 -- -- 89 12 97 % -- 11/01/24 2200 102/79 -- -- 90 16 98 % -- 11/01/24 2100 119/73 -- -- 94 21 99 % -- 11/01/24 2031 105/63 -- -- 73 15 95 % -- 11/01/241999 (!) 130/92 -- -- 107 23 98 % -- 11/01/24 1930 127/79 -- -- 84 20 99 % -- 11/01/24 1900 111/61 -- -- 77 -- 98 % -- 11/01/24 1830 115/54 -- -- 91 -- 98 % -- 11/01/24 1800 (!) 128/95 -- -- 83 -- 100 % -- 11/01/24 1745 123/67 -- -- 74 -- -- -- 11/01/24 1730 124/67 -- -- 73 -- 100 % -- 11/01/24 1715 132/72 -- -- 80 -- 100 % -- 11/01/24 1711 133/74 -- -- 77 -- 100 % -- 11/01/24 1700 123/90 36.1 ??C (97 ??F) Temporal 72 14 100 % -- 11/01/24 1657 131/75 -- -- 73 -- 100 % -- 11/01/24 1654 126/74 -- -- 71 -- 100 % -- 11/01/24 1651 119/71 -- -- 77 -- 100 % -- 11/01/24 1648 120/77 -- -- 87 -- 100 % -- 11/01/24 1645 119/75 -- -- 80 -- 100 % -- 11/01/24 1630 112/70 -- -- 71 -- 97 % -- 11/01/24 1615 114/68 -- -- 70 -- 98 % -- 11/01/24 1600 114/73 -- -- 81 -- 100 % -- 11/01/24 1545 113/67 -- -- 72 -- 98 % -- 11/01/24 1530 117/71 -- -- 77 -- 97 % -- 11/01/24 1515 (!) 127/95 -- -- 71 -- 98 % -- 11/01/24 1500 131/65 -- -- 77 -- 100 % -- 11/01/24 1445 116/71 -- -- 84 -- 100 % -- 11/01/24 1430 116/61 -- -- 82 -- -- -- 11/01/24 1415 (!) 120/98 -- -- 76 11 100 % -- 11/01/24 1400 121/77 -- -- 75 16 100 % -- 11/01/24 1345 125/75 -- -- 75 16 100 % -- 11/01/24 1331 120/72 -- -- 74 16 100 % -- 11/01/24 1223 -- -- -- -- -- 98 % -- 11/01/24 1222 113/58 -- -- 78 16 98 % -- 11/01/24 1127 111/71 36.4 ??C (97.6 ??F) Temporal 82 16 97 % -- Physical Examination: Physical Exam Constitutional: General: She is not in acute distress. Appearance: Normal appearance. She is normal weight. She is not ill-appearing. HENT: Head: Normocephalic and atraumatic. Nose: No congestion or rhinorrhea. Mouth/Throat: Mouth: Mucous membranes are moist. Eyes: General: No scleral icterus. Extraocular Movements: Extraocular movements intact. Conjunctiva/sclera: Conjunctivae normal. Pupils: Pupils are equal, round, and reactive to light. Cardiovascular: Rate and Rhythm: Normal rate and regular rhythm. Pulses: Normal pulses. Heart sounds: Normal heart sounds. No murmur heard. Pulmonary: Effort: Pulmonary effort is normal. No respiratory distress. Breath sounds: Normal breath sounds. No wheezing. Abdominal: General: Abdomen is flat. Bowel sounds are normal. There is no distension. Palpations: Abdomen is soft. Tenderness: There is no abdominal tenderness. There is no guarding. Musculoskeletal: General: No swelling. Right lower leg: No edema. Left lower leg: No edema. Skin: General: Skin is warm. Coloration: Skin is not jaundiced or pale. Neurological: General: No focal deficit present. Mental Status: She is alert and oriented to person, place, and time. Mental status is at baseline. Cranial Nerves: No cranial nerve deficit. Motor: No weakness. Psychiatric: Mood and Affect: Mood normal. Behavior: Behavior normal. Thought Content: Thought content normal. Judgment: Judgment normal. Relevant Lab Results Encounter Date: 10/30/24 ECG 12 lead Result Value Ventricular Rate 76 Atrial Rate 76 MA Interval 132 QRS DURATION 84 QT Interval 444 QTC CALCULATION(BAZETT) 499 P [place] 72 R-[place] 50 T Wave [place] 89 Impression Normal sinus rhythm T cahnges, consider anterior and high lateral ischemia Prolonged QT Abnormal ECG Confirmed by Griffin Daiz ([id number]) on 11/01/2024 11:37:39 PM No results found for: CKTOTAL , CKMB , CKMBINDEX , TROPONINI Limited Echo (TTE) w/wo Limited Doppler, Color Flow, Imaging Agent, Strain, 3D, Bubble Study Result Date: 10/31/2024 1 1 [facility] Heart Station [address] [id number] [phone] (fax) Echocardiogram-[facility] Name: JUAN KONG Study Date: 10/31/2024 11:16 AM B/P: 106 mmHg/67 mmHg HR: 70 bpm Date of : 1990 [facility] Age: 34 year(s) Patient Room: 3187 Weight: 181 lb. Gender: Female Patient Status: InPt BSA: 1.92 m2 Indication: Chest Pain, gartroparesis, limited echo to assess CP Examination: Limited Echo, Color flow imaging, Lumason Contrast Image Quality: Fair Patient Consent: Procedure explained to patient Exam Details Contrast: I.V. dose of Lumason Conclusions Left Ventricle: Global left vent ricular systolic function is at lower limits of normal. The calculated Biplane EF is 53 %. EF rangeis estimated at 50 % -55 %. Left ventricular wall thickness is normal. Regional wall motion abnormalities (see diagram). Right Ventricle: The right ventricle is normal in size. Normal right ventricular systolic function. Unable to assess right sided pressures due to lack of measurable tricuspid regurgitation. Left Atrium: The left atrium is normal in size. Pericardium: There is a minimal pericardial effusion. Overall Conclusions: Due to suboptimal imaging Lumason contrast was administered for opacification and better delineation of endocardial borders. Measurements Left Ventricle Label Value Normal Value LVDd, 2D 4.71 cm (3.9cm - 5.3cm) LVDs, 2D 2.96 cm (2.1cm - 4cm) IVSd, 2D 0.7 cm (0.6cm - 1.1cm) LVPWd, 2D 0.83 cm (0.6cm - 0.9cm) LVEF, BP 53 % (55% - 65%) LV Mass, 2D ASE 115.82 g LV Mass Index, 2D ASE 60.3 g/m?? (44g/m?? - 88.4g/m??) RWT, MM 0.35 (0 - 0.42) LVSVI, 2D 35.9 ml/m2 Aorta Label Value Normal Value AoRoot, 2D 2.5 cm (1.4cm - 3.8cm) Valvular Assessment LVOT 0.7 - 1.1 m/sec Aortic Valve 1.0 - 1.7 m/sec Mitral Valve 0.6 - 1.3 m/sec Tricuspid Valve 0.3 - 0.7 m/sec Pulmonic Valve 0.6 - 0.9 m/sec Regurgitation No No No No Findings Left Ventricle: Global left ventricular systolic function is at lower limits of normal. The calculated Biplane EF is 53 %. EF range is estimatedat 50 % -55 %. Left ventricular wall thickness is normal. Regional wall motion abnormalities (see diagram). The basal inferolateral, mid anterior, mid anteroseptal, mid inferoseptal, mid inferolateral and apical lateral left ventricular wall segments are hypokinetic. All remaining scored left ventricular wall segments are with no wall motion abnormalities. Right Ventricle: The right ventricle is normal in size. Normal right ventricular systolic function. Unable to assess right sided pressures due to lack of measurable tricuspid regurgitation. Left Atrium: The left atrium is normal in size. Right Atrium: The right atrium is normal in size. Mitral Valve: The mitral valve is normal in mobilityand thickness. No mitral regurgitation. Aortic Valve: The aortic valve is normal. No aortic valve regurgitation. Tricuspid Valve: Normal tricuspid valve. No tricuspid regurgitation. Pulmonic Valve: Normal pulmonary valve. No pulmonary regurgitation. Aorta: The aortic root exhibits normal size. Great Vessels: IVC: The IVC is not visualized. Pericardium: There is a minimal pericardial effusion. Procedure Staff Reading Group: [facility] Finisher Wallboard And Plasterboard: DAVID Kearney, RDCS Ordering Physician: KY RITTER Wall Motion Scores -1 - hyperkinesia, 0 - not evaluated, 1 - normal, 2 - hypokinesia, 3 - akinesia, 4 - dyskinesia No nuclear medicine results found for the past 12 months Relevant Imaging Results Cardiac catheterization PROCEDURE PHYSICIAN: Tino Gilmore MD . Indications: Juan Kong is a 34 y.o. female who is admitted with chest pain and elevated troponin as well as EKG changes. She was diagnosed NSTEMI and referred for cardiac catheterization. Assistants: Cardiovascular Fellow Dr Janet Soto. Procedure Performed: Coronary angiogram. Left heart catheterization. Administration of intraarterial nitroglycerin to treat radial artery spasm. Access into the left radial artery under ultrasound guidance. Methods: Procedure was explained to the patient with risks and benefits; she signed informed consent. 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 The left wrist area was prepped and draped in usual fashion. Micropuncture technique was used for access in the radial artery. A 5-Iranian x 11 cm sheath was placed. Verapamil was given through the sheath, and heparin was administered intravenously. A 5 Iranian JR4 diagnostic catheter was advanced and this was used to perform left heart catheterization with measurement of pressures. Pullback across aortic valve was performed with measurement of pressures. The catheter was used to attempt engagement of the right coronary artery however this was not possible. At this point the patient started developing radial artery spasm. This was treated by administration of intra-arterial nitroglycerin. The catheter was then downsized to a 4 Iranian JR4 diagnostic catheter however this also was not able to engage the right coronary artery. Catheter was exchanged to a JR4 diagnostic catheter which could not engage the left coronary artery. Catheter was exchanged to a 4 Iranian JL 3.5 diagnostic catheter which eventually was able to engage the left coronary artery. Angiography was performed in multiple views. Catheter was exchanged over the wire to a 4 Iranian 3DRC catheter. Multiple attempts were made to engage the right coronary artery however these failed. Nonselective aortic root angiography was performed however there was no evidence of opacification of the origin of the right coronary artery. At this point the patient developed additional spasm in the radial artery with significant pain which prevented further manipulation of the catheter. At this point the catheter was retracted. Intra-arterial nitroglycerin was administered through the radial sheath. The procedure was concluded. Hemostasis was achieved by TR band in the radial artery. she tolerated the procedure well and was transferred back to the hospital room. Hemodynamic Data: LV: 159/9, 19 AO: 159/92 (121) Coronary angiography: This is a left-dominant circulation. Left Main: This arises from the left coronary cusp. It bifurcates into left anterior descending and circumflex vessels. This is angiographically normal. Left anterior descending: Mild disease is noted in the mid segment of the LAD. The rest of the LAD is free of disease. Circumflex: This is a dominant vessel. This is angiographically normal. Right coronary artery: There was inability to engage the right coronary artery and the origin of the artery was not apparent on nonselective aortic root injections. 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 Impression/Findings: Mild disease in the LAD. 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 Mildly to moderately elevated left filling pressures. No aortic stenosis. Plan: Aspirin 81 mg daily. Statin therapy. The patient will be scheduled for cardiac catheterization to be performed from the femoral access given limitations of radial access due to spasm. Further recommendations per inpatient Cardiology service. 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, type III scad EKG shows NSR with HR 83 and some PVCs HST trend: 337-129-61 downtrending Cath on 11/01/2024: Coronary angiogram and IVUS demonstrate focal SCAD (Type 3 SCAD) in the mid LAD.Since there is good coronary artery blood flow and the SCAD is non-flow limiting, medical therapy is recommended SCAD type III in mid LAD T2DM Morbid obesity s/p sleeve gastrectomy IBS HTN HLD RICHAR GERD Hypothyroidism Asthma H/O median arcuate ligament syndrome s/p celiac plexus block and MALS release H/O extensive chronic adhesions and recurrent obstructions Gastroparesis s/p daily infusions and J-tube C/B infection and removal Fibromyalgia PLAN Coronary angiogram today showed focal scad type III in the mid LAD. Continue medical therapy with aspirin and Plavix for 1 to 3 months followed by lifelong aspirin therapy Monitor tonight and patient can hopefully discharge tomorrow if stable Rest of care per primary team Cardiology will continue following along This note was, at least in part, completed using a voice animal husbandry manager system. Every effort was made to ensure accuracy. However, inadvertent computerized animal husbandry manager errors may be present. Lisa Pena DO Internal Medicine Resident, PGY-2 [facility] 9:08 AM 11/02/24 [1] Current Facility-Administered Medications: acetaminophen (Tylenol) tablet 650 mg, 650 mg, oral, q6h PRN, Debbie Luna, BETH Adult Cyclic 3-in-1 TPN, 2,300 mL, intravenous, Cyclic TPN, Kaye Craig, RD, Last Rate: 79.8 mL/hrat 11/02/24 0802, Rate Change at 11/02/24 0802 albuterol 90 mcg/actuation inhaler 2 puff, 2 puff, inhalation, q6h PRN, Debbie Luna BEEF SPECIALIST aspirin chewable tablet 81 mg, 81 mg, oral, Daily with breakfast, Maria D Bailey MD, 81 mg at 11/02/24 0856 atorvastatin (Lipitor) tablet 80 mg, 80 mg, oral, Nightly, Maria D Bailey MD, 80 mg at 11/01/24 2151 clopidogrel (Plavix) tablet 75 mg, 75 mg, oral, Daily, Ky Ritter MD, 75 mg at 11/02/24 0856 glucose chewable tablet 24 g, 24 g, oral, q15 min PRN OR dextrose 50 % in water (D50W) syringe 25 g, 25 g, intravenous, q15 min PRN, Debbie Luna CNP, 25 g at 10/31/24 1228 diphenhydrAMINE (BENADryl) injection 12.5 mg, 12.5 mg, intravenous, q6h PRN, Ky Ritter MD, 12.5 mg at 11/02/24 0557 escitalopram (Lexapro) tablet 20 mg, 20 mg, oral, Daily, Debbiejossie Luna, BEEF SPECIALIST, 20 mg at 11/02/24 08 fentaNYL (Duragesic) 25 mcg/hr 1 patch, 1 patch, transdermal, q72h, Ky Ritter MD, 1 patch at10/31/24 1236 heparin (porcine) injection 5,000 Units, 5,000 Units, subcutaneous, q8h TANIA, Janet Soto MD, 5,000 Units at 11/02/24 0556 HYDROcodone-acetaminophen (Marcellus) 5-325 mg per tablet 1 tablet, 1 tablet, oral, q4h PRN, Debbie Luna, BEEF SPECIALIST, 1 tablet at 11/02/24 0556 hydrocortisone (Cortef) tablet 10 mg, 10 mg, oral, Daily, Debbiejossie Luna, BEEF SPECIALIST, 10 mg at 11/02/24 0856 hydrOXYzine pamoate (Vistaril) capsule 50 mg, 50 mg, oral, Nightly PRN, Debbie Luna BEEF SPECIALIST insulin lispro (HumaLOG) injection 0-5 Units, 0-5 Units, subcutaneous, TID with meals AND insulin lispro (HumaLOG) injection 0-4 Units, 0-4 Units, subcutaneous, Nightly, Debbie Luna, BEEF SPECIALIST levothyroxine (Synthroid, Levoxyl) tablet 75 mcg, 75 mcg, oral, Daily before breakfast, Debbie Pirkl, BEEF SPECIALIST, 75 mcg at 11/02/24 0556 liothyronine (Cytomel) tablet 5 mcg, 5 mcg, oral, Daily, Debbiejossie Luna, BEEF SPECIALIST, 5 mcg at 11/02/24 08 melatonin tablet 5 mg, 5 mg, oral, Nightly PRN, Debbie Luna, BEEF SPECIALIST methocarbamol (Robaxin) tablet 750 mg, 750 mg, oral, 4x daily, Debbiejossie Luna, BEEF SPECIALIST, 750 mg at 11/02/24 08 metoclopramide (Reglan) tablet 10 mg, 10 mg, oral, Daily PRN, Debbie Pirkl, BEEF SPECIALIST metoprolol succinate XL (Toprol-XL) 24 hr split tablet 12.5 mg, 12.5 mg, oral, Daily, Ky Ritter MD, 12.5 mg at 11/02/24 0856 mirtazapine (Remeron) tablet 45 mg, 45 mg, oral, Nightly, Debbie Pirkl, BEEF SPECIALIST, 45 mg at 11/01/24 2223 pantoprazole (ProtoNix) EC tablet 40 mg, 40 mg, oral, BID AC, Debbie Pirkl, BEEF SPECIALIST, 40 mg at 11/02/24 0556 sodium chloride 0.9 % infusion, 100 mL/hr, intravenous, Continuous, Janet Soto MD, Stopped at 11/02/24 0841 Insert peripheral IV, , , Once AND Saline lock IV, , , Once AND sodium chloride flush 10 mL, 10 mL, intravenous, q8h PRN, Debbie Pirkl, BEEF SPECIALIST sucralfate (Carafate) tablet 1 g, 1 g, oral, Before meals & nightly, Debbie Pirkl, BEEF SPECIALIST, 1 g at 11/02/24 0556 topiramate (Topamax) tablet 100 mg, 100 mg, oral, BID, Debbie Pirkl, BEEF SPECIALIST, 100 mg at 11/02/24 0856 traMADol (Ultram) tablet 50 mg, 50 mg, oral, q6h PRN, Debbie Pirkl, BEEF SPECIALIST, 50 mg at 11/02/24 0859 traZODone (Desyrel) tablet 100 mg, 100 mg, oral, Nightly, Debbie Pirkl, BEEF SPECIALIST, 100 mg at 11/01/24 215 trimethobenzamide (Tigan) injection 200 mg, 200 mg, intramuscular, q6h PRN, Debbie Pirkl, BEEF SPECIALIST, 200 mg at 11/01/24 2019 Cosigned by Katie Altamirano MD at 11/02/2024 4:55 PM EDT Associated attestation - Katie Altamirano MD - 11/02/2024 4:55 PM EDT By using the attestations below, the signing clinician agrees that I have read and verify that thedocumentation has been personally reviewed by me and ensure that the documentation accurately reflects the encounter. GC: I personally saw this patient on the day of the encounter, performed the paula portion(s) of the service and participated in the management and confirm the resident's documentation. Please note there may be an additional personal documentation from me. Additional Comments: Challenging situation; patient found to have type III focal spontaneous coronary artery dissection of mid to distal LAD by coronary angiography and intravascular ultrasound. In addition, it appears that she has a segment of myocardial bridging and systolic compression just before the focal SCAD. Patient had recurrent chest pain today with no significant EKG changes. Relook angiography showed similar findings with perhaps worsening of the dissection flap by IVUS. Instantaneous wave free ratio was nonsignificant. No ideal solution; given her young age, HARRIETT-3 flow by coronary angiography, and no new EKG changes, we will continue with a conservative approach. A beta- reece has been added, if tolerated, may consider addition of a calcium channel reece. Should the patient experience refractory angina, significant EKG changes, or further increases in her troponin level, may have to consider interventional therapy for the SCAD with either Cutting Balloon angioplasty and/or stent placement. Katie Altamirano MD, MPH, FACC, [facility], [facility] Interventional Cardiology Pager Email: [email or web address] * LIA Shetty - 11/01/2024 10:45 AM EDT MIRYAM consult for Home TPN supplies upon discharge Patient will be discharged with continued need for home TPN services. Before admission service provided by [facility]. SW sent referral to them through [facility] to confirm ability to continue services. * Ky Ritter MD - 11/01/2024 7:33 AM EDT Images from the original note were not included. / Hospital Medicine Daily Progress Note - 11/01/2024 7:33 AM; Room: [facility]7/3187-01 Admission: 10/30/2024 6:28 PM; Length of stay: 2 days THE HOSPITALIST TEAM PREFERS TO USE [employer] CHAT FOR NON-URGENT COMMUNICATION 7AM- 7PM. IF I DO NOT RESPOND WITHIN 20 MINUTES OR URGENT MATTERS, PLEASE CALL THROUGH THE INFECTION CONTROL SPECIALIST. FROM 7PM-7AM, PLEASE PAGE [phone](COVR). Code Status: Full Code Barriers to Discharge: Repeat cardiac catheterization Expected Discharge Date: 11/02 Discharge Destination: home Overview Patient is seen for evaluation and management of chest pain. Subjective patient seen and examined. patient states that her chest pain has improved however continues to experience dyspnea with exertion. No other acute complaints today but does have ongoing nausea from gastroparesis. Cardiac catheterization yesterday from radial approach showing mild disease in LAD however patient was having spasms so there was inability to engage RCA. Pending repeat cardiac catheterization from femoral access today Physical Exam Visit Vitals BP (!) 94/42 Pulse 69 Temp 36.5 ??C (97.7 ??F) (Temporal) Resp 12 Intake/Output Summary (Last 24 hours) at 11/01/2024 0733 Last data filed at 11/01/2024 0540 Gross per 24 hour Intake 3682.5 ml Output 3020 ml Net 662.5 ml Estimated body mass index is 28.81 kg/m?? as calculated from the following: Height as of this encounter: 1.676 m (5' 5.98 ). Weight as of this encounter: 80.9 kg (178 lb 6.4 oz). Constitutional: NAD, AOx3 Eyes: EOMI, normal conjunctiva Mouth: Moist, no lesions CV: RRR, normal S1-S2, no murmurs Resp: CTA, no crackles or wheezing Abd: Soft, non-tender Extremities: No swelling, 2+ distal pulses Neuro: AOx3, no focal deficits Psych: Appropriate mood and affect overall unchanged today Assessment and Plan Assessment & Plan NSTEMI (non-ST elevated myocardial infarction) (CMS/HCC) -Trop 390 at OSH, now downward trending -Continue heparin gtt -TTE showing mildly reduced EF 50-55% with WMA -Cardiology consulted; cardiac catheterization from radial approach yesterday showing mild LAD disease however due to radial artery spasms catheterization was incomplete - planning for repeat catheterization today from femoral access Prolonged Q-T interval on ECG -QT mildly prolonged; read as 492 ms however calculation revealing 429 -Okay with reglan -Obtain repeat EKG today Type 2 diabetes mellitus without complication, without long-term current use of insulin ([facility]) - Patient currently taking metformin at home -Continue ISS ACHS Protein calorie malnutrition -Patient currently requiring TPN -Port to her right chest -Clinical dietitian consult Gastroparesis - atient initially with a J-tube in place, however, the JG became infected and had to be taken out -Patient reports plan for reinsertion in the near future Median arcuate ligament syndrome - S/p celiac plexus block and then MALS release GERD (gastroesophageal reflux disease) -Continue PPI Acquired hypothyroidism - Continue levothyroxine Asthma - Continue albuterol inhaler as needed IBS (irritable bowel syndrome) - Stable S/P laparoscopic sleeve gastrectomy - Stable Nutrition Screen: Malnutrition Attestation: No dietitian assessment is available at this time. VTE Prophylaxis: IV heparin Scheduled Meds aspirin, 81 mg, oral, Daily with breakfast atorvastatin, 80 mg, oral, Nightly escitalopram, 20 mg, oral, Daily fentaNYL, 1 patch, transdermal, q72h hydrocortisone, 10 mg, oral, Daily insulin lispro, 0-5 Units, subcutaneous, TID with meals And insulin lispro, 0-4 Units, subcutaneous, Nightly levothyroxine, 75 mcg, oral, Daily before breakfast liothyronine, 5 mcg, oral, Daily methocarbamol, 750 mg, oral, 4x daily mirtazapine, 45 mg, oral, Nightly pantoprazole, 40 mg, oral, BID AC sucralfate, 1 g, oral, Before meals & nightly topiramate, 100 mg, oral, BID traZODone, 100 mg, oral, Nightly Adult Cyclic 3-in-1 TPN, 2,300 mL, Last Rate: 158.5 mL/hr at 11/01/24405 heparin, 0-28 Units/kg/hr, Last Rate: 15 Units/kg/hr (11/01/24 040) Pertinent Investigations Hematology: Results from last 7 days Lab Units 10/31/24 0627 10/30/24 1911 WBC AUTO 10*3/uL 3.65* 4.32 HEMOGLOBIN g/dL 9.4* 9.7* HEMATOCRIT % 29.2* 29.6* MCV fL 91.0 89.7 PLATELETS AUTO 10*3/uL 235 272 INR -- 1.15* Chemistry: Results from last 7 days Lab Units 10/31/24 0610/30/241910 SODIUM mmol/L 140 139 POTASSIUM mmol/L 4.0 3.7 CHLORIDE mmol/L 110* 110* CO2 mmol/L 26 23 BUN mg/dL 5* 5* CREATININE mg/dL 0.60 0.64 GLUCOSE mg/dL 83 101* MAGNESIUM mg/dL 1.8* 1.7* CALCIUM mg/dL 7.7* 7.8* PHOSPHORUS mg/dL -- 4.4 Results from last 7 days Lab Units 10/30/24 191 AST U/L 19 ALT U/L 7 ALK PHOS U/L 45 BILIRUBIN TOTAL mg/dL 0.2* Results from last 7 days Lab Units 11/01/24 0602 10/31/24201910/31/24 1155 10/31/24 0722 10/30/24 211 POCT GLUCOSE mg/dL 114* 90 82 87 97 Historical Values: (Includes values prior to this admission) Lab Results Component Value Date TSH 3.46 10/30/2024 HDL 43 10/31/2024 LDL 73 10/31/2024 No results found for: [id number] , IRON , TIBC , C3 , C4 , MISAEL , CANCA , ASO , PSA , CEA , CA125 , CA199 , AFP , CA153 Imaging ECG 12 lead Normal sinus rhythm Mild sST elevation with T changes in V1-V4 consider acute anterior injury Abnormal ECG When compared with ECG of 31-OCT-2024 08:15, No significant change was found Confirmed by Griffin Diaz ([id number]) on 10/31/2024 10:36:38 PM ECG 12 lead Normal sinus rhythm Mild ST elevation with T changes in V1 to Vr, consider acute anterior injury Prolonged QT Abnormal ECG Confirmed by Griffin Diaz ([id number]) on 10/31/2024 10:34:26 PM ECG 12 lead Sinus rhythm with sinus arrhythmia with occasional Premature ventricular complexes otherwise normal EKG No previous ECGs available Confirmed by Griffin Diaz ([id number]) on 10/31/2024 9:14:03 PM Cardiac catheterization PROCEDURE PHYSICIAN: Tino Gilmore MD . Indications: Juan Kong is a 34 y.o. female who is admitted with chest pain and elevated troponin as well as EKG changes. She was diagnosed NSTEMI and referred for cardiac catheterization. Assistants: Cardiovascular Fellow Dr Janet Soto. Procedure Performed: Coronary angiogram. Left heart catheterization. Administration of intraarterial nitroglycerin to treat radial artery spasm. Access into the left radial artery under ultrasound guidance. Methods: Procedure was explained to the patient with risks and benefits; she signed informed consent. 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 The left wrist area was prepped and draped in usual fashion. Micropuncture technique was used for access in the radial artery. A 5-Iranian x 11 cm sheath was placed. Verapamil was given through the sheath, and heparin was administered intravenously. A 5 Iranian JR4 diagnostic catheter was advanced and this was used to perform left heart catheterization with measurement of pressures. Pullback across aortic valve was performed with measurement of pressures. The catheter was used to attempt engagement of the right coronary artery however this was not possible. At this point the patient started developing radial artery spasm. This was treated by administration of intra-arterial nitroglycerin. The catheter was then downsized to a 4 Iranian JR4 diagnostic catheter however this also was not able to engage the right coronary artery. Catheter was exchanged to a JR4 diagnostic catheter which could not engage the left coronary artery. Catheter was exchanged to a 4 Iranian JL 3.5 diagnostic catheter which eventually was able to engage the left coronary artery. Angiography was performed in multiple views. Catheter was exchanged over the wire to a 4 Iranian 3DRC catheter. Multiple attempts were made to engage the right coronary artery however these failed. Nonselective aortic root angiography was performed however there was no evidence of opacification of the origin of the right coronary artery. At this point the patient developed additional spasm in the radial artery with significant pain which prevented further manipulation of the catheter. At this point the catheter was retracted. Intra-arterial nitroglycerin was administered through the radial sheath. The procedure was concluded. Hemostasis was achieved by TR band in the radial artery. she tolerated the procedure well and was transferred back to the hospital room. Hemodynamic Data: LV: 159/9, 19 AO: 159/92 (121) Coronary angiography: This is a left-dominant circulation. Left Main: This arises from the left coronary cusp. It bifurcates into left anterior descending and circumflex vessels. This is angiographically normal. Left anterior descending: Mild disease is noted in the mid segment of the LAD. The rest of the LAD is free of disease. Circumflex: This is a dominant vessel. This is angiographically normal. Right coronary artery: There was inability to engage the right coronary artery and the origin of the artery was not apparent on nonselective aortic root injections. 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 Impression/Findings: Mild disease in the LAD. 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 Mildly to moderately elevated left filling pressures. No aortic stenosis. Plan: Aspirin 81 mg daily. Statin therapy. The patient will be scheduled for cardiac catheterization to be performed from the femoral access given limitations of radial access due to spasm. Further recommendations per inpatient Cardiology service. Tino Gilmore MD Limited Echo (TTE) w/wo Limited Doppler, Color Flow, Imaging Agent, Strain, 3D, Bubble Study 1 1 [facility] Heart Station [address] [place] [address] [phone] (fax) Echocardiogram-[facility] Name: JUAN KONG Study Date: 10/31/2024 11:16 AM B/P: 106 mmHg/67 mmHg HR: 70 bpm Date of : 1990 Location: [facility] Height: 66 in. Age: 34 year(s) Patient Room: 3187 Weight: 181 lb. Gender: Female Patient Status: InPt BSA: 1.92 m2 Indication: Chest Pain, gartroparesis, limited echo to assess CP Examination: Limited Echo, Color flow imaging, Lumason Contrast Image Quality: Fair Patient Consent: Procedure explained to patient Exam Details Contrast: I.V. dose of Lumason Conclusions Left Ventricle: Global left ventricular systolic function is at lower limits of normal. The calculated Biplane EF is 53 %. EF range is estimated at 50 % -55 %. Left ventricular wall thickness is normal. Regional wall motion abnormalities (see diagram). Right Ventricle: The right ventricle is normal in size. Normal right ventricular systolic function. Unable to assess right sided pressures due to lack of measurable tricuspid regurgitation. Left Atrium: The left atrium is normal in size. Pericardium: There is a minimal pericardial effusion. Overall Conclusions: Due to suboptimal imaging Lumason contrast was administered for opacification and better delineation of endocardial borders. Measurements Left Ventricle Label Value Normal Value LVDd, 2D 4.71 cm (3.9cm - 5.3cm) LVDs, 2D 2.96 cm (2.1cm - 4cm) IVSd, 2D 0.7 cm (0.6cm - 1.1cm) LVPWd, 2D 0.83 cm (0.6cm - 0.9cm) LVEF, BP 53 % (55% - 65%) LV Mass, 2D ASE 115.82 g LV Mass Index, 2D ASE 60.3 g/m?? (44g/m?? - 88.4g/m??) RWT, MM 0.35 (0 - 0.42) LVSVI, 2D 35.9 ml/m2 Aorta Label Value Normal Value AoRoot, 2D 2.5 cm (1.4cm - 3.8cm) Valvular Assessment LVOT 0.7 - 1.1 m/sec Aortic Valve 1.0 - 1.7 m/sec Mitral Valve 0.6 - 1.3 m/sec Tricuspid Valve 0.3 - 0.7 m/sec Pulmonic Valve 0.6 - 0.9 m/sec Regurgitation No No No No Findings Left Ventricle: Global left ventricular systolic function is at lower limits of normal. The calculated Biplane EF is 53 %. EF range is estimated at 50 % -55 %. Left ventricular wall thickness is normal. Regional wall motion abnormalities (see diagram). The basal inferolateral, mid anterior, mid anteroseptal, mid inferoseptal, mid inferolateral and apical lateral left ventricular wall segments are hypokinetic. All remaining scored left ventricular wall segments are with no wall motion abnormalities. Right Ventricle: The right ventricle is normal in size. Normal right ventricular systolic function. Unable to assess right sided pressures due to lack of measurable tricuspid regurgitation. Left Atrium: The left atrium is normal in size. Right Atrium: The right atrium is normal in size. Mitral Valve: The mitral valve is normal in mobility and thickness. No mitral regurgitation. Aortic Valve: The aortic valve is normal. No aortic valve regurgitation. Tricuspid Valve: Normal tricuspid valve. No tricuspid regurgitation. Pulmonic Valve: Normal pulmonary valve. No pulmonary regurgitation. Aorta: The aortic root exhibits normal size. Great Vessels: IVC: The IVC is not visualized. Pericardium: There is a minimal pericardial effusion. Procedure Staff Reading Group: [facility] Finisher [employer] Plasterboard: DAVID Kearney, RDCS Ordering Physician: KY RITTER Wall Motion Scores -1 - hyperkinesia, 0 - not evaluated, 1 - normal, 2 - hypokinesia, 3 - akinesia, 4 - dyskinesia Discharge Planning Expected Discharge Disposition: Home or Self Care (01) Signed Ky Ritter MD Hospital Medicine 11/01/2024 7:33 AM * Kaye Craig, DADA - 10/31/2024 2:19 PM EDT Adult Nutrition Assessment: Name: Juan Kong Date: 1990 Date of Visit: 10/31/24 Admission Dx: Chest pain [R07.9] Reason for assessment: MD referral TPN Information obtained from: patient, medical record, physician, and [facility] care PMH: HTN, HLD, asthma, RICHAR, hypothyroidism, GERD, IBS, PCOS, median arcuate ligament syndrome s/p celiac plexus block (2022), s/p MALS release (02/2023), morbid obesity, s/p sleeve gastrectomy, RYGP, chronic adhesions & SBO, gastroparesis, FTT, s/p JT (removed 08/17/24), chronic PN support, [facility] replaced 09/25/24 Current Medications: [START ON 11/01/2024] aspirin, 81 mg, oral, Daily with breakfast atorvastatin, 80 mg, oral, Nightly escitalopram, 20 mg, oral, Daily fentaNYL, 1 patch, transdermal, q72h hydrocortisone, 10 mg, oral, Daily insulin lispro, 0-5 Units, subcutaneous, TID with meals And insulin lispro, 0-4 Units, subcutaneous, Nightly levothyroxine, 75 mcg, oral, Daily before breakfast liothyronine, 5 mcg, oral, Daily methocarbamol, 750 mg, oral, 4x daily mirtazapine, 45 mg, oral, Nightly pantoprazole, 40 mg, oral, BID AC sucralfate, 1 g, oral, Before meals & nightly topiramate, 100 mg, oral, BID traZODone, 100 mg, oral, Nightly Adult Cyclic 3-in-1 TPN, 2,300 mL heparin, 0-28 Units/kg/hr, Last Rate: 15 Units/kg/hr (10/31/24 1043) sodium chloride, 100 mL/hr, Last Rate: 100 mL/hr (10/31/24 1043) Labs: 0 Lab Value Date/Time POCGLU 82 10/31/2024 1155 BUN 5 (L) 10/31/2024626 CREATININE 0.60 10/31/2024626 NA 140 10/31/2024626 K 4.0 10/31/2024626 PHOS 4.4 10/30/2024 1911 MG 1.8 (L) 10/31/2024626 HGBA1C 4.5 10/31/2024626 HGB 9.4 (L) 10/31/2024626 WBC 3.65 (L) 10/31/2024626 CHOL 116 (L) 10/31/2024626 HDL 43 10/31/2024626 Mar CGM read 67 vs finger stick 82 @ 1155 -> D50 25 g given @ 1228 2/ NPO -> Mar read 126 ~15 minutes later. 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 No routine or PRN bowel medications ordered at this time. H/o narcotic use. This admission, morphine given at 2009 & norco 5-325 mg given 2225 last night& 0533 this morning, fentanyl patch applied at 1236 Nausea IV benadryl given at 1226 (around the time of hypoglycemic event where pt was reportedly symptomatic) Tigan given 0533 subq EGD (09/29/24) no endoscopic esophageal abnormality, esophagus dilated, Isabel en Y gastrojejunostomy with gastrojejunal anastamosis characterized by healthy mucosa Vascular US mesenteric artery duplex (10/06/24) SMA no stenosis & KEELY widely patent I/O: Urine output: no recorded occurrences Net fluid: +1.4 L Cognition: AO Feeding Skills: independent Skin Integrity: intact Other Factors: Chief complaint: CP, troponin 337 upon admission. NPO for cardiac cath Nutrition Data/Clinical Indicators of Nutrition Status: Height: 167.6 cm (5' 5.98 ) Weight: 82.1 kg (181 lb) BMI (Calculated): 29.23 Dosing wt: 85.28 kg per home infusion orders Wt Readings from Last 10 Encounters: 10/31/24 82.1 kg (181 lb) 08/20/24 86.5 kg (190 lb 11.2 oz) IBW: 59.3 kg UBW: 170-180# Weight change: current wt within range of UBW Nutrition Assessment: HPN 3 days per week (MWF) via [facility]. Managed by [facility]. Supplemental IVF. PO diet regular as tolerated. Intakes variable. [place], small meals. ONS. Dextrose 200 g AA 90 g IVFE 20% 50 g Volume 2300 ml Na acetate 85 meq K acetate 85 meq Na Phos 30 mmol Mg sulfate 24 meq Ca gluconate 10 meq MVI & MTE Cu 0.2 mg Zn 3 mg Administered over 16 hr, no taper up, 3 hr taper down Dietary Orders (From admission, onward) Start Ordered 10/31/24 0001 Diet NPO Diet effective midnight Comments: Sips with medications Question: Reason for NPO: Answer: Operation/Procedure 10/30/241913 Nutrition Risk: High Nutrition Needs: Needs based on: ideal body weight (59.3 kg) Calorie needs: 6564-6524 kcals/day based on 25-30 kcal/kg Protein needs: 59-71 g/day based on 1-1.2 g/kg Fluid needs: 1779 ml/day based on 30 ml/kg+ Nutrition Diagnosis: Inadequate oral intake related to altered GI function as evidenced by gastroparesis, failed EN Malnutrition Assessment: Per Registered Dietitian assessment and evaluation, patient does not currently meet criteria OR there is not enough information to support the diagnosis of malnutrition per the clinical criteria set by the Academy of Nutrition and Dietetics (AND) and the [place] Society of Enteral and Parenteral Nutrition (ASPEN). Treatment Plan: TPN ordered tonight since pt missed Wednesday & is NPO for procedure Resume home schedule tomorrow (MWF) Minor adjustments made based on current labs with plan to titrate to home order. Na Phos 30->20 mmol K acetate 85->60 meq When diet advanced pt agreeable to snacks between meals & ONS Goals: Advance TF to goal rate Weight maintenance Maintain visceral protein Nutrition-related labs (magnesium, phosphorus, BMP) wnl To reach the Clinical Dietitian, please utilize [employer] chat Wednesday-Wednesday from 8AM-4PM or call extension [phone]. For weekends (Wednesday-Wednesday) and hols, the Clinical Dietitian can be reached via pager [phone]) from 9AM-3PM. The Clinical Nutrition Department is unable to respond to [employer] chat messages on Sundays and . [1] Allergies Allergen Reactions Codeine Nausea And Vomiting Nsaids (Non-Steroidal Anti-Inflammatory Drug) GI intolerance Adhesive Rash * Jami Bridges RN - 10/31/2024 12:28 PM EDT Product Specialist called to room as patient states her free style mar is reading her blood sugar as 67 and she is feeling symptomatic. Finger stick blood sugar several minutes before was reading 82. Due to patient feeling symptomatic dextrose IV was given as patient is NPO for procedure. 15 minutes later patient states her mar is reading 126 and she is feeling much better. * Ky Ritter MD - 10/31/2024 7:18 AM EDT Images from the original note were not included. / Hospital Medicine Daily Progress Note - 10/31/2024 7:18 AM; Room: 3187/3187-01 Admission: 10/30/2024 6:28 PM; Length of stay: 1 days THE HOSPITALIST TEAM PREFERS TO USE [address] [employer] FOR NON-URGENT COMMUNICATION 7AM- 7PM. IF I DO NOT RESPOND WITHIN 20 MINUTES OR URGENT MATTERS, PLEASE CALL THROUGH THE INFECTION CONTROL SPECIALIST. FROM 7PM-7AM, PLEASE PAGE [phone](COVR). Code Status: Full Code Barriers to Discharge: Cardiac catheterization Expected Discharge Date: 11/01 Discharge Destination: home Overview Patient is seen for evaluation and management of chest pain. Subjective patient seen and examined. Patient states that her dull pain has resolved however continues to havesharp left-sided chest pain that is radiating down the left arm. Currently hemodynamically stable. Does have complaints of nausea and periodic shortness of breath. Due for TTE and possible cardiac catheterization Physical Exam Visit Vitals BP 103/66 Pulse 72 Temp 36.1 ??C (97 ??F) (Temporal) Resp 10 Intake/Output Summary (Last 24 hours) at 10/31/2024 0718 Last data filed at 10/31/2024 0325 Gross per 24 hour Intake 601.95 ml Output -- Net 601.95 ml Estimated body mass index is 29.23 kg/m?? as calculated from the following: Height as of this encounter: 1.676 m (5' 5.98 ). Weight as of this encounter: 82.1 kg (181 lb). Constitutional: NAD, AOx3 Eyes: EOMI, normal conjunctiva Mouth: Moist, no lesions CV: RRR, normal S1-S2, no murmurs Resp: CTA, no crackles or wheezing Abd: Soft, non-tender Extremities: No swelling, 2+ distal pulses MSK: reproducible chest pain a left-sided anterior chest wall near ribs 3-4 Neuro: AOx3, no focal deficits Psych: Appropriate mood and affect Assessment and Plan Assessment & Plan NSTEMI (non-ST elevated myocardial infarction) (CMS/HCC) -Trop 390 at OSH, now downward trending -Continue heparin gtt -Cardiology consulted -Pending TTE, cath Prolonged Q-T interval on ECG -QT mildly prolonged -Continue Tigan for now and avoid other QT prolonging agents Type 2 diabetes mellitus without complication, without long-term current use of insulin (CMS/HCC) - Patient currently taking metformin at home -Continue ISS ACHS Protein calorie malnutrition -Patient currently requiring TPN -Port to her right chest -Clinical dietitian consult Gastroparesis - atient initially with a J-tube in place, however, the JG became infected and had to be taken out -Patient reports plan for reinsertion in the near future Median arcuate ligament syndrome - S/p celiac plexus block and then MALS release GERD (gastroesophageal reflux disease) -Continue PPI Acquired hypothyroidism - Continue levothyroxine Asthma - Continue albuterol inhaler as needed IBS (irritable bowel syndrome) - Stable S/P laparoscopic sleeve gastrectomy - Stable Nutrition Screen: Malnutrition Attestation: No dietitian assessment is available at this time. VTE Prophylaxis: IV heparin Scheduled Meds escitalopram, 20 mg, oral, Daily hydrocortisone, 10 mg, oral, Daily insulin lispro, 0-5 Units, subcutaneous, TID with meals And insulin lispro, 0-4 Units, subcutaneous, Nightly levothyroxine, 75 mcg, oral, Daily before breakfast liothyronine, 5 mcg, oral, Daily magnesium oxide, 400 mg, oral, q8h methocarbamol, 750 mg, oral, 4x daily mirtazapine, 45 mg, oral, Nightly pantoprazole, 40 mg, oral, BID AC sucralfate, 1 g, oral, Before meals & nightly topiramate, 100 mg, oral, BID traZODone, 100 mg, oral, Nightly heparin, 0-28 Units/kg/hr, Last Rate: 15 Units/kg/hr (10/31/24324) sodium chloride, 100 mL/hr, Last Rate: 100 mL/hr (10/31/24324) Pertinent Investigations Hematology: Results from last 7 days Lab Units 10/30/241910 WBC AUTO 10*3/uL 4.32 HEMOGLOBIN g/dL 9.7* HEMATOCRIT % 29.6* MCV fL 89.7 PLATELETS AUTO 10*3/uL 272 INR 1.15* Chemistry: Results from last 7 days Lab Units 10/30/241910 SODIUM mmol/L 139 POTASSIUM mmol/L 3.7 CHLORIDE mmol/L 110* CO2 mmol/L 23 BUN mg/dL 5* CREATININE mg/dL 0.64 GLUCOSE mg/dL 101* MAGNESIUM mg/dL 1.7* CALCIUM mg/dL 7.8* PHOSPHORUS mg/dL 4.4 Results from last 7 days Lab Units 10/30/241910 AST U/L 19 ALT U/L 7 ALK PHOS U/L 45 BILIRUBIN TOTAL mg/dL 0.2* Results from last 7 days Lab Units 10/30/242111 POCT GLUCOSE mg/dL 97 Historical Values: (Includes values prior to this admission) Lab Results Component Value Date TSH 3.46 10/30/2024 No results found for: [id number] , IRON , TIBC , C3 , C4 , MISAEL , CANCA , ASO , PSA , CEA , CA125 , CA199 , AFP , CA153 Imaging ECG 12 lead Sinus rhythm with sinus arrhythmia with occasional Premature ventricular complexes Prolonged QT Abnormal ECG No previous ECGs available Discharge Planning Expected Discharge Disposition: Home or Self Care () Signed Ky Ritter MD [facility] 10/31/2024 7:18 AM documented in this encounter H&P Notes * Janet Soto MD - 11/02/2024 1:30 PM EDT H&P reviewed. The patient was examined and there are no changes to the H&P. Procedure reviewed with patient, risks including stroke, ID, discussed. Ms Kong is agreeable to coronary angiogram today. Cosigned by Wali Collins MD at 11/02/2024 3:13 PM EDT Source Note - Maria D Bailey MD - 11/01/2024 4:26 PM EDT Images from the original note were not included. Cardiology Progress Note Reason for Consult: CP Subjective Underwent coronary angiogram yesterday but only left coronary artery was engaged. Repeat cath todayto assess the RCA. Patient reports intermittent chest pain and lightheadedness upon standing up. Denies shortness of breath. She is getting TPN at bedside. HPI: Juan Kong is a 34 y.o. female w/ PMHx of HTN, HLD, asthma, RICHAR, hypothyroidism, GERD, IBS, fibromyalgia, T2DM, median arcuate ligament syndrome s/p celiac plexus block and MALS release, morbid obesity s/p sleeve gastrectomy, extensive chronic adhesions and recurrent obstructions, and gastroparesis s/p multiple infusions and J-tube C/B infection and removal who came as a direct admission from [facility] due to chest pain. Patient states that the pain started after her qD infusions for gastroparesis and characterizes as sharp and radiating to her left arm, 10 out of 10. She states that the CP was associated with dizziness, shortness of breath, nausea, and vomiting. At this time, she states that she has been receivingLR infusions w/ Benadryl and Compazine daily for the past month, and at the beginning of when she was receiving it yesterday she started feeling severe chest pain. HST trending from 337 to 129 down to 61, and BNP 77. ECG shows NSR with HR 83, and some PVCs. Repeat ECG ordered, and patient has never had a cath. Previous echocardiogram showed normal results and was completed due to concern for endocarditis due to sepsis, however patient does not remember the exact results. Patient symptoms have improved and are now a 5 out of 10, with sporadic sharp pains but general dull pain. Patient's pain is reproducible with palpitation in the left axilla, and left chest region. Cardiology ROS: Review of Systems Constitutional: Negative for activity change, appetite change, chills, diaphoresis and fever. HENT: Negative for congestion, hearing loss, sinus pressure and sore throat. Eyes: Negative for photophobia and pain. Respiratory: Negative for apnea, cough, choking, shortness of breath and wheezing. Cardiovascular: Positive for chest pain. Negative for palpitations and leg swelling. Gastrointestinal: Negative for abdominal distention, abdominal pain, constipation, diarrhea, nauseaand vomiting. Genitourinary: Negative for difficulty urinating and dysuria. Musculoskeletal: Negative for arthralgias, gait problem and myalgias. Neurological: Negative for dizziness, tremors, weakness and headaches. Psychiatric/Behavioral: Negative for agitation and confusion. The patient is not nervous/anxious. Past Medical History She has no past medical history on file. Surgical History She has no past surgical history on file. Social History She reports that she has never smoked. She has never used smokeless tobacco. No history on file foralcohol use and drug use. Family History Family History[1] Allergies Codeine, Nsaids (non-steroidal anti-inflammatory drug), and Adhesive Medications Current Outpatient Medications Medication Instructions acetaminophen (TYLENOL) 650 mg, oral, Every 4 hours PRN ALBUTEROL INHL 90 mcg, inhalation, Every 6 hours PRN dexAMETHasone (DECADRON) 3 mg, oral, Daily ergocalciferol (VITAMIN D-2) 50,000 Units, oral, Weekly escitalopram (LEXAPRO) 20 mg, oral, Daily fentaNYL (Duragesic) 12 mcg/hr 1 patch, transdermal, Every 72 hours, Takes 12 mcg and 25 mcg together every 3 days fentaNYL (Duragesic) 25 mcg/hr 1 patch, transdermal, Every 72 hours HYDROcodone-acetaminophen (Marcellus) 5-325 mg tablet 2 tablets, oral, Every 4 hours PRN hydrocortisone (CORTEF) 10 mg, oral, Daily hydrOXYzine HCL (ATARAX) 50 mg, oral, Nightly PRN levothyroxine (SYNTHROID, LEVOXYL) 75 mcg, oral, Daily before breakfast linaCLOtide (LINZESS) 290 mcg, oral, Daily before breakfast, Do not crush or chew. liothyronine (CYTOMEL) 5 mcg, oral, Daily metFORMIN (OSM) (FORTAMET) 500 mg, oral, 2 times daily with meals, Do not crush, chew, or split. methocarbamol (ROBAXIN) 750 mg, oral, 4 times daily metoclopramide (REGLAN) 10 mg, oral, Daily PRN mirtazapine (REMERON) 45 mg, oral, Nightly omeprazole (PRILOSEC) 40 mg, oral, 2 times daily before meals, Do not crush or chew. prochlorperazine (COMPAZINE) 10 mg, oral, Every 6 hours PRN prucalopride 2 mg, oral, Daily sucralfate (CARAFATE) 1 g, oral, 4 times daily before meals and nightly topiramate (TOPAMAX) 100 mg, oral, 2 times daily traMADol (ULTRAM) 50 mg, oral, Every 6 hours PRN traZODone (DESYREL) 100 mg, oral, Nightly Prescriptions Prior to Admission[2] Last Recorded Vitals Patient Vitals for the past 24 hrs: BP Temp Temp src Pulse Resp SpO2 Weight 11/01/24 1615 114/68 -- -- 70 -- 98 % -- 11/01/24 1600 114/73 -- -- 81 -- 100 % -- 11/01/24 1545 113/67 -- -- 72 -- 98 % -- 11/01/24 1530 117/71 -- -- 77 -- 97 % -- 11/01/24 1515 (!) 127/95 -- -- 71 -- 98 % -- 11/01/24 1500 131/65 -- -- 77 -- 100 % -- 11/01/24 1445 116/71 -- -- 84 -- -- -- 11/01/24 1430 116/61 -- -- 82 -- -- -- 11/01/24 1415 (!) 120/98 -- -- 76 11 100 % -- 11/01/24 1400 121/77 -- -- 75 16 100 % -- 11/01/24 1345 125/75 -- -- 75 16 100 % -- 11/01/24 1331 120/72 -- -- 74 16 100 % -- 11/01/24 1223 -- -- -- -- -- 98 % -- 11/01/24 1222 113/58 -- -- 78 16 98 % -- 11/01/24 1127 111/71 36.4 ??C (97.6 ??F) Temporal 82 16 97 % -- 11/01/24 0756 111/73 36.1 ??C (97 ??F) Temporal 86 14 100 % -- 11/01/24 0500 -- -- -- -- -- -- 80.9 kg (178 lb 6.4 oz) 11/01/24 0400 (!) 94/42 -- -- 69 12 97 % -- 11/01/24 0300 (!) 102/47 -- -- 67 (!) 6 98 % -- 11/01/24 0200 103/54 -- -- 87 (!) 9 98 % -- 11/01/24 0100 104/56 -- -- 78 11 97 % -- 11/01/24 0000 (!) 96/49 -- -- 82 10 98 % -- 10/31/24 2300 120/65 -- -- 103 18 99 % -- 10/31/24 2200 93/56 -- -- 74 11 97 % -- 10/31/24 2130 115/54 -- -- 94 15 98 % -- 10/31/242099 109/66 -- -- 102 10 98 % -- 10/31/242044 121/80 -- -- 100 19 98 % -- 10/31/242038 106/83 -- -- 106 21 99 % -- 10/31/242014 (!) 126/93 -- -- 88 20 100 % -- 10/31/241999 112/84 -- -- 88 21 96 % -- 10/31/241954 110/61 -- -- 70 12 98 % -- 10/31/241934 118/84 -- -- 78 16 100 % -- 10/31/241840 -- -- -- -- -- 97 % -- 10/31/241840 123/63 -- -- 66 16 98 % -- Physical Examination: Physical Exam Constitutional: General: She is not in acute distress. Appearance: Normal appearance. She is normal weight. She is not ill-appearing. HENT: Head: Normocephalic and atraumatic. Nose: No congestion or rhinorrhea. Mouth/Throat: Mouth: Mucous membranes are moist. Eyes: General: No scleral icterus. Extraocular Movements: Extraocular movements intact. Conjunctiva/sclera: Conjunctivae normal. Pupils: Pupils are equal, round, and reactive to light. Cardiovascular: Rate and Rhythm: Normal rate and regular rhythm. Pulses: Normal pulses. Heart sounds: Normal heart sounds. No murmur heard. Pulmonary: Effort: Pulmonary effort is normal. No respiratory distress. Breath sounds: Normal breath sounds. No wheezing. Abdominal: General: Abdomen is flat. Bowel sounds are normal. There is no distension. Palpations: Abdomen is soft. Tenderness: There is no abdominal tenderness. There is no guarding. Musculoskeletal: General: No swelling. Right lower leg: No edema. Left lower leg: No edema. Skin: General: Skin is warm. Coloration: Skin is not jaundiced or pale. Neurological: General: No focal deficit present. Mental Status: She is alert and oriented to person, place, and time. Mental status is at baseline. Cranial Nerves: No cranial nerve deficit. Motor: No weakness. Psychiatric: Mood and Affect: Mood normal. Behavior: Behavior normal. Thought Content: Thought content normal. Judgment: Judgment normal. Relevant Lab Results Encounter Date: 10/30/24 ECG 12 lead Result Value Ventricular Rate 76 Atrial Rate 76 MA Interval 132 QRS DURATION 84 QT Interval 444 QTC CALCULATION(BAZETT) 499 P [place] 72 R-[place] 50 T Wave [place] 89 Impression Normal sinus rhythm Prolonged QT Abnormal ECG When compared with ECG of 31-OCT-2024 08:43, No significant change was found No results found for: CKTOTAL , CKMB , CKMBINDEX , TROPONINI Limited Echo (TTE) w/wo Limited Doppler, Color Flow, Imaging Agent, Strain, 3D, Bubble Study Result Date: 10/31/2024 1 1 [facility] Heart Station [id number] [place], [place] [phone] (fax) Echocardiogram-[facility] Name: JUAN KONG Study Date: 10/31/2024 11:16 AM B/P: 106 mmHg/67 mmHg HR: 70 bpm Date of : 1990 [facility] Age: 34 year(s) Patient Room: [facility] Weight: 181 lb. Gender: Female Patient Status: InPt BSA: 1.92 m2 Indication: Chest Pain, gartroparesis, limited echo to assess CP Examination: Limited Echo, Color flow imaging, Lumason Contrast Image Quality: Fair Patient Consent: Procedure explained to patient Exam Details Contrast: I.V. dose of Lumason Conclusions Left Ventricle: Global left vent ricular systolic function is at lower limits of normal. The calculated Biplane EF is 53 %. EF rangeis estimated at 50 % -55 %. Left ventricular wall thickness is normal. Regional wall motion abnormalities (see diagram). Right Ventricle: The right ventricle is normal in size. Normal right ventricular systolic function. Unable to assess right sided pressures due to lack of measurable tricuspid regurgitation. Left Atrium: The left atrium is normal in size. Pericardium: There is a minimal pericardial effusion. Overall Conclusions: Due to suboptimal imaging Lumason contrast was administered for opacification and better delineation of endocardial borders. Measurements Left Ventricle Label Value Normal Value LVDd, 2D 4.71 cm (3.9cm - 5.3cm) LVDs, 2D 2.96 cm (2.1cm - 4cm) IVSd, 2D 0.7 cm (0.6cm - 1.1cm) LVPWd, 2D 0.83 cm (0.6cm - 0.9cm) LVEF, BP 53 % (55% - 65%) LV Mass, 2D ASE 115.82 g LV Mass Index, 2D ASE 60.3 g/m?? (44g/m?? - 88.4g/m??) RWT, MM 0.35 (0 - 0.42) LVSVI, 2D 35.9 ml/m2 Aorta Label Value Normal Value AoRoot, 2D 2.5 cm (1.4cm - 3.8cm) Valvular Assessment LVOT 0.7 - 1.1 m/sec Aortic Valve 1.0 - 1.7 m/sec Mitral Valve 0.6 - 1.3 m/sec Tricuspid Valve 0.3 - 0.7 m/sec Pulmonic Valve 0.6 - 0.9 m/sec Regurgitation No No No No Findings Left Ventricle: Global left ventricular systolic function is at lower limits of normal. The calculated Biplane EF is 53 %. EF range is estimatedat 50 % -55 %. Left ventricular wall thickness is normal. Regional wall motion abnormalities (see diagram). The basal inferolateral, mid anterior, mid anteroseptal, mid inferoseptal, mid inferolateral and apical lateral left ventricular wall segments are hypokinetic. All remaining scored left ventricular wall segments are with no wall motion abnormalities. Right Ventricle: The right ventricle is normal in size. Normal right ventricular systolic function. Unable to assess right sided pressures due to lack of measurable tricuspid regurgitation. Left Atrium: The left atrium is normal in size. Right Atrium: The right atrium is normal in size. Mitral Valve: The mitral valve is normal in mobilityand thickness. No mitral regurgitation. Aortic Valve: The aortic valve is normal. No aortic valve regurgitation. Tricuspid Valve: Normal tricuspid valve. No tricuspid regurgitation. Pulmonic Valve: Normal pulmonary valve. No pulmonary regurgitation. Aorta: The aortic root exhibits normal size. Great Vessels: IVC: The IVC is not visualized. Pericardium: There is a minimal pericardial effusion. Procedure Staff Reading Group: [facility] Finisher Wallboard [employer] Plasterboard: Raegan Cardona BS, RDCS Ordering Physician: [place] RITTER Wall Motion Scores -1 - hyperkinesia, 0 - not evaluated, 1 - normal, 2 - hypokinesia, 3 - akinesia, 4 - dyskinesia No nuclear medicine results found for the past 12 months Relevant Imaging Results Cardiac catheterization PROCEDURE PHYSICIAN: Mitchell Agustin MD Clinical Presentation: 34 y.o. Female with history of hypertension, hyperlipidemia, asthma, RICHAR, hypothyroidism, GERD, IBS, DM2, median arcuate ligament syndrome s/p celiac plexus block and then MALS release, morbid obesity s/p sleeve gastrectomy, extensive chronic adhesions and recurrent obstructions, gastroparesis s/p J-tube and removal d/t infection, failure to thrive and now on TPN presents a direct admission from [facility] with chief complaint of chest pain. She is diagnosed with NSTEMI. She had coronary angiogram yesterday but it could not be completed due to radial artery vasospasm. She is now presenting for a repeat coronary angiogram with femoral access. Final Impression: 1) Coronary angiogram and IVUS demonstrate focal SCAD (Type 3 SCAD) in the mid LAD. Since there is good coronary artery blood flow and the SCAD is non-flow limiting, medical therapy is recommended Plan: 1) optimal med therapy for SCAD 2) Aspirin and plavix DAPT; can finish Plavix in 1 to 3 months and continue lifelong aspirin 81 mg daily 3) Lifelong beta-reece is recommended for prevention of recurrent SCAD Procedures Performed: coronary angiogram, IVUS LAD, conscious sedation 49 min, ultrasound guidance for vascular access Procedure Description: The patient was brought to the cardiac catheterization lab in a fasting state. Informed written consent was obtained. she was prepped and draped in usual sterile fashion over the bilateral groins. Time-out was performed. she was given Versed and fentanyl for sedation. 1% lidocaine was infiltrated over the right femoral artery. A 5-Iranian Terumo sheath was placed in right femoral artery. Limited femoral angiogram showed adequate placement in the right common femoral artery. Coronary angiogram was performed with a JL4 to engage the left main and a JR4 to engage the RCA. Coronary angiogram was performed in multiple orthogonal views. At this time, it was apparent that the mid LAD had intermediate stenosis. I decided to proceed with PCI. Heparin anticoagulation was used for this procedure. ACT was maintained at >250 seconds. A 5 Iranian Cordis XB 3.0 guide was engaged to the left main. I decided to proceed with IVUS. I then advanced a Runthrough wire to the distal left anterior descending. Next, I advanced a Clinithink IVUS catheter. IVUS imaging was performed and automated pullback was performed. Based on IVUS, we identified focal SCAD (type 3) with intramural hematoma. All catheters and wires were removed. The right femoral sheath will be removed once ACT is within range and manual pressure will be applied to obtain hemostasis. Specimens Removed: None Complications: None Coronary Angiogram: Left main: large trifurcating left main which is patent LAD: the LAD is a large vessel the mid segment of the LAD has a focal 40 to 50% stenosis. This area was further interrogated with IVUS. IVUS imaging showed evidence SCAD with intramural hematoma in a focal segment. Ramus: Patent LCX: normal; large and dominant left circumflex coronary artery RCA: small, nondominant vessel with diffuse tapering throughout the mid segment with very small caliber ECG 12 lead Normal sinus rhythm Prolonged QT Abnormal ECG When compared with ECG of 31-OCT-2024 08:43, No significant change was found Echocardiogram-[facility] Name: JUAN KONG Study Date: 10/31/2024 11:16 AM B/P: 106 mmHg/67 mmHg HR: 70 bpm Date of : 1990 Location: [facility] Height: 66 in. Age: 34 year(s) Patient Room : 3187 Weight: 181 lb. Gender: Female Patient Status: InPt BSA: 1.92 m2 Indication: Chest Pain, gartroparesis, limited echo to assess CP Examination: Limited Echo, Color flow imaging, Lumason Contrast Image Quality: Fair Patient Consent: Procedure explained to patient s p @ c3 Exam Details Contrast: I.V. dose of Lumason Conclusions Left Ventricle: Global left ventricular systolic function is at lower limits of normal. The calculated Biplane EF is 53 %. EF range is estimated at 50 % -55 %. Left ventricular wall thickness is normal. Regional wall motion abnormalities (see diagram). Right Ventricle: The right ventricle is normal in size. Normal right ventricular systolic function. Unable to assess right sided pressures due to lack of measurable tricuspid regurgitation. Left Atrium: The left atrium is normal in size. Pericardium: There is a minimal pericardial effusion. Overall Conclusions: Due to suboptimal imaging Lumason contrast was administered for opacification and better delineation of endocardial borders. 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, type III scad EKG shows NSR with HR 83 and some PVCs HST trend: [id number] downtrending Cath on 11/01/2024: Coronary angiogram and IVUS demonstrate focal SCAD (Type 3 SCAD) in the mid LAD.Since there is good coronary artery blood flow and the SCAD is non-flow limiting, medical therapy is recommended T2DM Morbid obesity s/p sleeve gastrectomy IBS HTN HLD RICHAR GERD Hypothyroidism Asthma H/O median arcuate ligament syndrome s/p celiac plexus block and MALS release H/O extensive chronic adhesions and recurrent obstructions Gastroparesis s/p daily infusions and J-tube C/B infection and removal Fibromyalgia PLAN Coronary angiogram today showed focal scad type III in the mid LAD. Continue medical therapy with aspirin and Plavix for 1 to 3 months followed by lifelong aspirin therapy Monitor tonight and patient can discharge tomorrow if stable Rest of care per primary team Cardiology will continue following along This note was, at least in part, completed using a voice animal husbandry manager system. Every effort was made to ensure accuracy. However, inadvertent computerized animal husbandry manager errors may be present. Lisa Pena DO Internal Medicine Resident, PGY-2 [facility] 4:26 PM 11/01/24 Maria D Bailey MD PGY-5 Fire Crew Specialist [facility] Pager: [phone] [1] No family history on file. [2] Medications Prior to Admission Medication Sig Dispense Refill Last Dose/Taking acetaminophen (Tylenol) 325 mg tablet Take 650 mg by mouth every 4 (four) hours if needed for mild pain (1-3 pain score). ALBUTEROL INHL Inhale 90 mcg every 6 (six) hours if needed (SOB or wheezing). dexAMETHasone (Decadron) 2 mg tablet Take 3 mg by mouth in the morning. ergocalciferol (Vitamin D-2) 1.25 MG (50875 Units) capsule Take 50,000 Units by mouth 1 (one) time per week. escitalopram (Lexapro) 20 mg tablet Take 20 mg by mouth in the morning. fentaNYL (Duragesic) 12 mcg/hr Place 1 patch on the skin every 3rd (third) day. Takes 12 mcg and 25mcg together every 3 days fentaNYL (Duragesic) 25 mcg/hr Place 1 patch on the skin every 3rd (third) day. HYDROcodone-acetaminophen (Marcellus) 5-325 mg tablet Take 2 tablets by mouth every 4 (four) hours if needed for moderate-severe pain (4-10 pain score). hydrocortisone (Cortef) 10 mg tablet Take 10 mg by mouth in the morning. hydrOXYzine HCL (Atarax) 25 mg tablet Take 50 mg by mouth if needed at bedtime. levothyroxine (Synthroid, Levoxyl) 75 mcg tablet Take 75 mcg by mouth before breakfast. linaCLOtide (Linzess) 290 mcg capsule Take 290 mcg by mouth before breakfast. Do not crush or chew. liothyronine (Cytomel) 5 mcg tablet Take 5 mcg by mouth in the morning. metFORMIN, OSM, (Fortamet) 500 mg 24 hr tablet Take 500 mg by mouth with breakfast and with eveningmeal. Do not crush, chew, or split. methocarbamol (Robaxin) 500 mg tablet Take 750 [...] evening meal. Do not crush or chew. prochlorperazine (Compazine) 10 mg tablet Take 10 mg by mouth every 6 (six) hours if needed for nausea or vomiting. prucalopride 2 mg tablet Take 2 mg by mouth in the morning. sucralfate (Carafate) 1 gram tablet Take 1 g by mouth before breakfast, before lunch, before evening meal, and at bedtime. topiramate (Topamax) 100 mg tablet Take 100 mg by mouth two times daily. traMADol (Ultram) 50 mg tablet Take 50 mg by mouth every 6 (six) hours if needed. traZODone (Desyrel) 100 mg tablet Take 100 mg by mouth at bedtime. Cosigned by Katie Altamirano MD at 11/01/2024 4:32 PM EDT * Janet Soto MD - 11/01/2024 12:09 PM EDT H&P reviewed. The patient was examined and there are no changes to the H&P. Procedure reviewed with patient, risks including stroke, ID, , bleeding and infection complications discussed.Ms. Kong agreeable to proceed with coronary angiography via femoral access today. Cosigned by Mitchell Agustin MD at 11/01/2024 12:42 PM EDT Source Note - Lisa Pena DO - 10/31/2024 7:49 AM EDT Images from the original note were not included. Cardiology Consult Note Reason for Consult: CP HPI: Juan Kong is a 34 y.o. female w/ PMHx of HTN, HLD, asthma, RICHAR, hypothyroidism, GERD, IBS, fibromyalgia, T2DM, median arcuate ligament syndrome s/p celiac plexus block and MALS release, morbid obesity s/p sleeve gastrectomy, extensive chronic adhesions and recurrent obstructions, and gastroparesis s/p multiple infusions and J-tube C/B infection and removal who came as a direct admission from [facility] due to chest pain. Patient states that the pain started after her qD infusions for gastroparesis and characterizes as sharp and radiating to her left arm, 10 out of 10. She states that the CP was associated with dizziness, shortness of breath, nausea, and vomiting. At this time, she states that she has been receivingLR infusions w/ Benadryl and Compazine daily for the past month, and at the beginning of when she was receiving it yesterday she started feeling severe chest pain. HST trending from 337 to 129 down to 61, and BNP 77. ECG shows NSR with HR 83, and some PVCs. Repeat ECG ordered, and patient has never had a cath. Previous echocardiogram showed normal results and was completed due to concern for endocarditis due to sepsis, however patient does not remember the exact results. Patient symptoms have improved and are now a 5 out of 10, with sporadic sharp pains but general dull pain. Patient's pain is reproducible with palpitation in the left axilla, and left chest region. Cardiology ROS: Review of Systems Constitutional: Negative for activity change, appetite change, chills, diaphoresis and fever. HENT: Negative for congestion, hearing loss, sinus pressure and sore throat. Eyes: Negative for photophobia and pain. Respiratory: Negative for apnea, cough, choking, shortness of breath and wheezing. Cardiovascular: Positive for chest pain. Negative for palpitations and leg swelling. Gastrointestinal: Negative for abdominal distention, abdominal pain, constipation, diarrhea, nauseaand vomiting. Genitourinary: Negative for difficulty urinating and dysuria. Musculoskeletal: Negative for arthralgias, gait problem and myalgias. Neurological: Negative for dizziness, tremors, weakness and headaches. Psychiatric/Behavioral: Negative for agitation and confusion. The patient is not nervous/anxious. Past Medical History She has no past medical history on file. Surgical History She has no past surgical history on file. Social History She reports that she has never smoked. She has never used smokeless tobacco. No history on file foralcohol use and drug use. Family History Family History[1] Allergies Codeine, Nsaids (non-steroidal anti-inflammatory drug), and Adhesive Medications Current Outpatient Medications Medication Instructions acetaminophen (TYLENOL) 650 mg, oral, Every 4 hours PRN ALBUTEROL INHL 90 mcg, inhalation, Every 6 hours PRN dexAMETHasone (DECADRON) 3 mg, oral, Daily ergocalciferol (VITAMIN D-2) 50,000 Units, oral, Weekly escitalopram (LEXAPRO) 20 mg, oral, Daily fentaNYL (Duragesic) 12 mcg/hr 1 patch, transdermal, Every 72 hours, Takes 12 mcg and 25 mcg together every 3 days fentaNYL (Duragesic) 25 mcg/hr 1 patch, transdermal, Every 72 hours HYDROcodone-acetaminophen (Marcellus) 5-325 mg tablet 2 tablets, oral, Every 4 hours PRN hydrocortisone (CORTEF) 10 mg, oral, Daily hydrOXYzine HCL (ATARAX) 50 mg, oral, Nightly PRN levothyroxine (SYNTHROID, LEVOXYL) 75 mcg, oral, Daily before breakfast linaCLOtide (LINZESS) 290 mcg, oral, Daily before breakfast, Do not crush or chew. liothyronine (CYTOMEL) 5 mcg, oral, Daily metFORMIN (OSM) (FORTAMET) 500 mg, oral, 2 times daily with meals, Do not crush, chew, or split. methocarbamol (ROBAXIN) 750 mg, oral, 4 times daily metoclopramide (REGLAN) 10 mg, oral, Daily PRN mirtazapine (REMERON) 45 mg, oral, Nightly omeprazole (PRILOSEC) 40 mg, oral, 2 times daily before meals, Do not crush or chew. prochlorperazine (COMPAZINE) 10 mg, oral, Every 6 hours PRN prucalopride 2 mg, oral, Daily sucralfate (CARAFATE) 1 g, oral, 4 times daily before meals and nightly topiramate (TOPAMAX) 100 mg, oral, 2 times daily traMADol (ULTRAM) 50 mg, oral, Every 6 hours PRN traZODone (DESYREL) 100 mg, oral, Nightly Prescriptions Prior to Admission[2] Last Recorded Vitals Patient Vitals for the past 24 hrs: BP Temp Temp src Pulse Resp SpO2 Height Weight 10/31/24 0400 103/66 -- -- 72 10 97 % -- -- 10/31/24 0320 -- -- -- -- -- -- 1.676 m (5' 5.98 ) 82.1 kg (181 lb) 10/31/24 0000 101/67 -- -- 71 (!) 7 95 % -- -- 10/30/24 2200 102/58 -- -- 65 10 96 % -- -- 10/30/241999 99/50 36.1 ??C (97 ??F) Temporal 86 16 97 % -- -- 10/30/24 1855 -- -- -- -- -- -- -- 82.1 kg (181 lb) 10/30/24 1833 -- -- -- 68 14 98 % -- -- 10/30/24 1832 (!) 117/44 36.1 ??C (97 ??F) Temporal 72 19 98 % -- -- Physical Examination: Physical Exam Constitutional: General: She is not in acute distress. Appearance: Normal appearance. She is normal weight. She is not ill-appearing. HENT: Head: Normocephalic and atraumatic. Nose: No congestion or rhinorrhea. Mouth/Throat: Mouth: Mucous membranes are moist. Eyes: General: No scleral icterus. Extraocular Movements: Extraocular movements intact. Conjunctiva/sclera: Conjunctivae normal. Pupils: Pupils are equal, round, and reactive to light. Cardiovascular: Rate and Rhythm: Normal rate and regular rhythm. Pulses: Normal pulses. Heart sounds: Normal heart sounds. No murmur heard. Pulmonary: Effort: Pulmonary effort is normal. No respiratory distress. Breath sounds: Normal breath sounds. No wheezing. Abdominal: General: Abdomen is flat. Bowel sounds are normal. There is no distension. Palpations: Abdomen is soft. Tenderness: There is no abdominal tenderness. There is no guarding. Musculoskeletal: General: No swelling. Right lower leg: No edema. Left lower leg: No edema. Skin: General: Skin is warm. Coloration: Skin is not jaundiced or pale. Neurological: General: No focal deficit present. Mental Status: She is alert and oriented to person, place, and time. Mental status is at baseline. Cranial Nerves: No cranial nerve deficit. Motor: No weakness. Psychiatric: Mood and Affect: Mood normal. Behavior: Behavior normal. Thought Content: Thought content normal. Judgment: Judgment normal. Relevant Lab Results Encounter Date: 10/30/24 ECG 12 lead Result Value Ventricular Rate 83 Atrial Rate 83 MA Interval 144 QRS DURATION 88 QT Interval 422 QTC CALCULATION(BAZETT) 495 P [place] 62 R-[place] 19 T Wave [place] 56 Impression Sinus rhythm with sinus arrhythmia with occasional Premature ventricular complexes Prolonged QT Abnormal ECG No previous ECGs available No results found for: CKTOTAL , CKMB , CKMBINDEX , TROPONINI No echocardiogram results found for the past 12 months No nuclear medicine results found for the past 12 months Relevant Imaging Results ECG 12 lead Sinus rhythm with sinus arrhythmia with occasional Premature ventricular complexes Prolonged QT Abnormal ECG No previous ECGs available Echocardiogram-[facility] Name: JUAN KONG Study Date: 10/31/2024 11:16 AM B/P: 106 mmHg/67 mmHg HR: 70 bpm Date of : 1990 Location: [facility] Height: 66 in. Age: 34 year(s) Patient Room : 3187 Weight: 181 lb. Gender: Female Patient Status: InPt BSA: 1.92 m2 Indication: Chest Pain, gartroparesis, limited echo to assess CP Examination: Limited Echo, Color flow imaging, Lumason Contrast Image Quality: Fair Patient Consent: Procedure explained to patient s p @ c3 Exam Details Contrast: I.V. dose of Lumason Conclusions Left Ventricle: Global left ventricular systolic function is at lower limits of normal. The calculated Biplane EF is 53 %. EF range is estimated at 50 % -55 %. Left ventricular wall thickness is normal. Regional wall motion abnormalities (see diagram). Right Ventricle: The right ventricle is normal in size. Normal right ventricular systolic function. Unable to assess right sided pressures due to lack of measurable tricuspid regurgitation. Left Atrium: The left atrium is normal in size. Pericardium: There is a minimal pericardial effusion. Overall Conclusions: Due to suboptimal imaging Lumason contrast was administered for opacification and better delineation of endocardial borders. ASSESSMENT NSTEMI EKG shows NSR with HR 83 and some PVCs HST trend: 337-129-61 downtrending CP improving from 10 to 6 with intermittent sharp pains T2DM Morbid obesity s/p sleeve gastrectomy IBS HTN HLD RICHAR GERD Hypothyroidism Asthma H/O median arcuate ligament syndrome s/p celiac plexus block and MALS release H/O extensive chronic adhesions and recurrent obstructions Gastroparesis s/p daily infusions and J-tube C/B infection and removal Fibromyalgia PLAN Cardiac catheterization today; coronary angiography indicated given CP, elevated HsTrop with a riseand fall, and subtle anteroseptal T wave changes and wall motion abnormalities on echocardiogram Replete electrolytes with K above 4.0, and Mg above 2.0 Rest of care per primary team Cardiology will continue following along This note was, at least in part, completed using a voice animal husbandry manager system. Every effort was made to ensure accuracy. However, inadvertent computerized animal husbandry manager errors may be present. Lisa Pena DO Internal Medicine Resident, PGY-2 [facility] 7:50 AM 10/31/24 [1] No family history on file. [2] Medications Prior to Admission Medication Sig Dispense Refill Last Dose/Taking acetaminophen (Tylenol) 325 mg tablet Take 650 mg by mouth every 4 (four) hours if needed for mild pain (1-3 pain score). ALBUTEROL INHL Inhale 90 mcg every 6 (six) hours if needed (SOB or wheezing). dexAMETHasone (Decadron) 2 mg tablet Take 3 mg by mouth in the morning. ergocalciferol (Vitamin D-2) 1.25 MG (78785 Units) capsule Take 50,000 Units by mouth 1 (one) time per week. escitalopram (Lexapro) 20 mg tablet Take 20 mg by mouth in the morning. fentaNYL (Duragesic) 12 mcg/hr Place 1 patch on the skin every 3rd (third) day. Takes 12 mcg and 25mcg together every 3 days fentaNYL (Duragesic) 25 mcg/hr Place 1 patch on the skin every 3rd (third) day. HYDROcodone-acetaminophen (Marcellus) 5-325 mg tablet Take 2 tablets by mouth every 4 (four) hours if needed for moderate-severe pain (4-10 pain score). hydrocortisone (Cortef) 10 mg tablet Take 10 mg by mouth in the morning. hydrOXYzine HCL (Atarax) 25 mg tablet Take 50 mg by mouth if needed at bedtime. levothyroxine (Synthroid, Levoxyl) 75 mcg tablet Take 75 mcg by mouth before breakfast. linaCLOtide (Linzess) 290 mcg capsule Take 290 mcg by mouth before breakfast. Do not crush or chew. liothyronine (Cytomel) 5 mcg tablet Take 5 mcg by mouth in the morning. metFORMIN, OSM, (Fortamet) 500 mg 24 hr tablet Take 500 mg by mouth with breakfast and with eveningmeal. Do not crush, chew, or split. methocarbamol (Robaxin) 500 mg tablet Take 750 [...] evening meal. Do not crush or chew. prochlorperazine (Compazine) 10 mg tablet Take 10 mg by mouth every 6 (six) hours if needed for nausea or vomiting. prucalopride 2 mg tablet Take 2 mg by mouth in the morning. sucralfate (Carafate) 1 gram tablet Take 1 g by mouth before breakfast, before lunch, before evening meal, and at bedtime. topiramate (Topamax) 100 mg tablet Take 100 mg by mouth two times daily. traMADol (Ultram) 50 mg tablet Take 50 mg by mouth every 6 (six) hours if needed. traZODone (Desyrel) 100 mg tablet Take 100 mg by mouth at bedtime. Cosigned by Katie Altamirano MD at 10/31/2024 1:34 PM EDT * Janet Soto MD - 10/31/2024 4:21 PM EDT H&P reviewed. The patient was examined and there are no changes to the H&P. Procedure reviewed with patient, risks of stroke, ID, discussed. Ms Kong is agreeable to proceed with coronaryangiogram. Cosigned by Tino Gilmore MD at 10/31/2024 6:36 PM EDT Source Note - Lisa Pena DO - 10/31/2024 7:49 AM EDT Images from the original note were not included. Cardiology Consult Note Reason for Consult: CP HPI: Juan Kong is a 34 y.o. female w/ PMHx of HTN, HLD, asthma, RICHAR, hypothyroidism, GERD, IBS, fibromyalgia, T2DM, median arcuate ligament syndrome s/p celiac plexus block and MALS release, morbid obesity s/p sleeve gastrectomy, extensive chronic adhesions and recurrent obstructions, and gastroparesis s/p multiple infusions and J-tube C/B infection and removal who came as a direct admission from [facility] due to chest pain. Patient states that the pain started after her qD infusions for gastroparesis and characterizes as sharp and radiating to her left arm, 10 out of 10. She states that the CP was associated with dizziness, shortness of breath, nausea, and vomiting. At this time, she states that she has been receivingLR infusions w/ Benadryl and Compazine daily for the past month, and at the beginning of when she was receiving it yesterday she started feeling severe chest pain. HST trending from 337 to 129 down to 61, and BNP 77. ECG shows NSR with HR 83, and some PVCs. Repeat ECG ordered, and patient has never had a cath. Previous echocardiogram showed normal results and was completed due to concern for endocarditis due to sepsis, however patient does not remember the exact results. Patient symptoms have improved and are now a 5 out of 10, with sporadic sharp pains but general dull pain. Patient's pain is reproducible with palpitation in the left axilla, and left chest region. Cardiology ROS: Review of Systems Constitutional: Negative for activity change, appetite change, chills, diaphoresis and fever. HENT: Negative for congestion, hearing loss, sinus pressure and sore throat. Eyes: Negative for photophobia and pain. Respiratory: Negative for apnea, cough, choking, shortness of breath and wheezing. Cardiovascular: Positive for chest pain. Negative for palpitations and leg swelling. Gastrointestinal: Negative for abdominal distention, abdominal pain, constipation, diarrhea, nauseaand vomiting. Genitourinary: Negative for difficulty urinating and dysuria. Musculoskeletal: Negative for arthralgias, gait problem and myalgias. Neurological: Negative for dizziness, tremors, weakness and headaches. Psychiatric/Behavioral: Negative for agitation and confusion. The patient is not nervous/anxious. Past Medical History She has no past medical history on file. Surgical History She has no past surgical history on file. Social History She reports that she has never smoked. She has never used smokeless tobacco. No history on file foralcohol use and drug use. Family History Family History[1] Allergies Codeine, Nsaids (non-steroidal anti-inflammatory drug), and Adhesive Medications Current Outpatient Medications Medication Instructions acetaminophen (TYLENOL) 650 mg, oral, Every 4 hours PRN ALBUTEROL INHL 90 mcg, inhalation, Every 6 hours PRN dexAMETHasone (DECADRON) 3 mg, oral, Daily ergocalciferol (VITAMIN D-2) 50,000 Units, oral, Weekly escitalopram (LEXAPRO) 20 mg, oral, Daily fentaNYL (Duragesic) 12 mcg/hr 1 patch, transdermal, Every 72 hours, Takes 12 mcg and 25 mcg together every 3 days fentaNYL (Duragesic) 25 mcg/hr 1 patch, transdermal, Every 72 hours HYDROcodone-acetaminophen (Marcellus) 5-325 mg tablet 2 tablets, oral, Every 4 hours PRN hydrocortisone (CORTEF) 10 mg, oral, Daily hydrOXYzine HCL (ATARAX) 50 mg, oral, Nightly PRN levothyroxine (SYNTHROID, LEVOXYL) 75 mcg, oral, Daily before breakfast linaCLOtide (LINZESS) 290 mcg, oral, Daily before breakfast, Do not crush or chew. liothyronine (CYTOMEL) 5 mcg, oral, Daily metFORMIN (OSM) (FORTAMET) 500 mg, oral, 2 times daily with meals, Do not crush, chew, or split. methocarbamol (ROBAXIN) 750 mg, oral, 4 times daily metoclopramide (REGLAN) 10 mg, oral, Daily PRN mirtazapine (REMERON) 45 mg, oral, Nightly omeprazole (PRILOSEC) 40 mg, oral, 2 times daily before meals, Do not crush or chew. prochlorperazine (COMPAZINE) 10 mg, oral, Every 6 hours PRN prucalopride 2 mg, oral, Daily sucralfate (CARAFATE) 1 g, oral, 4 times daily before meals and nightly topiramate (TOPAMAX) 100 mg, oral, 2 times daily traMADol (ULTRAM) 50 mg, oral, Every 6 hours PRN traZODone (DESYREL) 100 mg, oral, Nightly Prescriptions Prior to Admission[2] Last Recorded Vitals Patient Vitals for the past 24 hrs: BP Temp Temp src Pulse Resp SpO2 Height Weight 10/31/24 0400 103/66 -- -- 72 10 97 % -- -- 10/31/24 0320 -- -- -- -- -- -- 1.676 m (5' 5.98 ) 82.1 kg (181 lb) 10/31/24 0000 101/67 -- -- 71 (!) 7 95 % -- -- 10/30/24 2200 102/58 -- -- 65 10 96 % -- -- 10/30/241999 99/50 36.1 ??C (97 ??F) Temporal 86 16 97 % -- -- 10/30/24 1855 -- -- -- -- -- -- -- 82.1 kg (181 lb) 10/30/241832 -- -- -- 68 14 98 % -- -- 10/30/241831 (!) 117/44 36.1 ??C (97 ??F) Temporal 72 19 98 % -- -- Physical Examination: Physical Exam Constitutional: General: She is not in acute distress. Appearance: Normal appearance. She is normal weight. She is not ill-appearing. HENT: Head: Normocephalic and atraumatic. Nose: No congestion or rhinorrhea. Mouth/Throat: Mouth: Mucous membranes are moist. Eyes: General: No scleral icterus. Extraocular Movements: Extraocular movements intact. Conjunctiva/sclera: Conjunctivae normal. Pupils: Pupils are equal, round, and reactive to light. Cardiovascular: Rate and Rhythm: Normal rate and regular rhythm. Pulses: Normal pulses. Heart sounds: Normal heart sounds. No murmur heard. Pulmonary: Effort: Pulmonary effort is normal. No respiratory distress. Breath sounds: Normal breath sounds. No wheezing. Abdominal: General: Abdomen is flat. Bowel sounds are normal. There is no distension. Palpations: Abdomen is soft. Tenderness: There is no abdominal tenderness. There is no guarding. Musculoskeletal: General: No swelling. Right lower leg: No edema. Left lower leg: No edema. Skin: General: Skin is warm. Coloration: Skin is not jaundiced or pale. Neurological: General: No focal deficit present. Mental Status: She is alert and oriented to person, place, and time. Mental status is at baseline. Cranial Nerves: No cranial nerve deficit. Motor: No weakness. Psychiatric: Mood and Affect: Mood normal. Behavior: Behavior normal. Thought Content: Thought content normal. Judgment: Judgment normal. Relevant Lab Results Encounter Date: 10/30/24 ECG 12 lead Result Value Ventricular Rate 83 Atrial Rate 83 MA Interval 144 QRS DURATION 88 QT Interval 422 QTC CALCULATION(BAZETT) 495 P [place] 62 R-[place] 19 T Wave [place] 56 Impression Sinus rhythm with sinus arrhythmia with occasional Premature ventricular complexes Prolonged QT Abnormal ECG No previous ECGs available No results found for: CKTOTAL , CKMB , CKMBINDEX , TROPONINI No echocardiogram results found for the past 12 months No nuclear medicine results found for the past 12 months Relevant Imaging Results ECG 12 lead Sinus rhythm with sinus arrhythmia with occasional Premature ventricular complexes Prolonged QT Abnormal ECG No previous ECGs available Echocardiogram-[facility] Name: JUAN KONG Study Date: 10/31/2024 11:16 AM B/P: 106 mmHg/67 mmHg HR: 70 bpm Date of : 1990 Location: [facility] Height: 66 in. Age: 34 year(s) Patient Room : 3187 Weight: 181 lb. Gender: Female Patient Status: InPt BSA: 1.92 m2 Indication: Chest Pain, gartroparesis, limited echo to assess CP Examination: Limited Echo, Color flow imaging, Lumason Contrast Image Quality: Fair Patient Consent: Procedure explained to patient s p @ c3 Exam Details Contrast: I.V. dose of Lumason Conclusions Left Ventricle: Global left ventricular systolic function is at lower limits of normal. The calculated Biplane EF is 53 %. EF range is estimated at 50 % -55 %. Left ventricular wall thickness is normal. Regional wall motion abnormalities (see diagram). Right Ventricle: The right ventricle is normal in size. Normal right ventricular systolic function. Unable to assess right sided pressures due to lack of measurable tricuspid regurgitation. Left Atrium: The left atrium is normal in size. Pericardium: There is a minimal pericardial effusion. Overall Conclusions: Due to suboptimal imaging Lumason contrast was administered for opacification and better delineation of endocardial borders. ASSESSMENT NSTEMI EKG shows NSR with HR 83 and some PVCs HST trend: 337-129-61 downtrending CP improving from 10 to 6 with intermittent sharp pains T2DM Morbid obesity s/p sleeve gastrectomy IBS HTN HLD RICHAR GERD Hypothyroidism Asthma H/O median arcuate ligament syndrome s/p celiac plexus block and MALS release H/O extensive chronic adhesions and recurrent obstructions Gastroparesis s/p daily infusions and J-tube C/B infection and removal Fibromyalgia PLAN Cardiac catheterization today; coronary angiography indicated given CP, elevated HsTrop with a riseand fall, and subtle anteroseptal T wave changes and wall motion abnormalities on echocardiogram Replete electrolytes with K above 4.0, and Mg above 2.0 Rest of care per primary team Cardiology will continue following along This note was, at least in part, completed using a voice animal husbandry manager system. Every effort was made to ensure accuracy. However, inadvertent computerized animal husbandry manager errors may be present. Lisa Pena DO Internal Medicine Resident, PGY-2 [facility] 7:50 AM 10/31/24 [1] No family history on file. [2] Medications Prior to Admission Medication Sig Dispense Refill Last Dose/Taking acetaminophen (Tylenol) 325 mg tablet Take 650 mg by mouth every 4 (four) hours if needed for mild pain (1-3 pain score). ALBUTEROL INHL Inhale 90 mcg every 6 (six) hours if needed (SOB or wheezing). dexAMETHasone (Decadron) 2 mg tablet Take 3 mg by mouth in the morning. ergocalciferol (Vitamin D-2) 1.25 MG (43258 Units) capsule Take 50,000 Units by mouth 1 (one) time per week. escitalopram (Lexapro) 20 mg tablet Take 20 mg by mouth in the morning. fentaNYL (Duragesic) 12 mcg/hr Place 1 patch on the skin every 3rd (third) day. Takes 12 mcg and 25mcg together every 3 days fentaNYL (Duragesic) 25 mcg/hr Place 1 patch on the skin every 3rd (third) day. HYDROcodone-acetaminophen (Marcellus) 5-325 mg tablet Take 2 tablets by mouth every 4 (four) hours if needed for moderate-severe pain (4-10 pain score). hydrocortisone (Cortef) 10 mg tablet Take 10 mg by mouth in the morning. hydrOXYzine HCL (Atarax) 25 mg tablet Take 50 mg by mouth if needed at bedtime. levothyroxine (Synthroid, Levoxyl) 75 mcg tablet Take 75 mcg by mouth before breakfast. linaCLOtide (Linzess) 290 mcg capsule Take 290 mcg by mouth before breakfast. Do not crush or chew. liothyronine (Cytomel) 5 mcg tablet Take 5 mcg by mouth in the morning. metFORMIN, OSM, (Fortamet) 500 mg 24 hr tablet Take 500 mg by mouth with breakfast and with eveningmeal. Do not crush, chew, or split. methocarbamol (Robaxin) 500 mg tablet Take 750 [...] evening meal. Do not crush or chew. prochlorperazine (Compazine) 10 mg tablet Take 10 mg by mouth every 6 (six) hours if needed for nausea or vomiting. prucalopride 2 mg tablet Take 2 mg by mouth in the morning. sucralfate (Carafate) 1 gram tablet Take 1 g by mouth before breakfast, before lunch, before evening meal, and at bedtime. topiramate (Topamax) 100 mg tablet Take 100 mg by mouth two times daily. traMADol (Ultram) 50 mg tablet Take 50 mg by mouth every 6 (six) hours if needed. traZODone (Desyrel) 100 mg tablet Take 100 mg by mouth at bedtime. Cosigned by Katie Altamirano MD at 10/31/2024 1:34 PM EDT * Debbie Luna CNP - 10/30/2024 7:14 PM EDT Images from the original note were not included. Hospital Medicine History and Physical 10/30/2024 8:57 PM THE HOSPITALIST TEAM PREFERS TO USE [employer] FOR NON-URGENT COMMUNICATION 7AM- 7PM. IF I DO NOT RESPOND WITHIN 20 MINUTES OR URGENT MATTERS, PLEASE CALL THROUGH THE INFECTION CONTROL SPECIALIST. FROM 7PM-7AM, PLEASE PAGE [phone](COVR). Chief Complaint Direct admission from [place] with CP History of Present Illness Juan Kong is an 34 y.o. female who came from home with past medical history of hypertension, hyperlipidemia, asthma, RICHAR, hypothyroidism, GERD, IBS, DM2, median arcuate ligament syndrome s/p celiac plexus block and then MALS release, morbid obesity s/p sleeve gastrectomy, extensive chronic adhesions and recurrent obstructions, gastroparesis s/p J-tube and removal d/t infection, failure to thrive and now on TPN presents a direct admission from [facility] with chief complaint of chest pain. Patient reports that she receives daily infusions due to her gastroparesis and protein calorie malnutrition. She states she usually receives a combination of medications including Benadryl and Compazine and that after her infusion today she began to have sharp, left-sided chest pain with radiation into her arm. She states associated dizziness, shortness of breath, nausea, vomiting. She statesthe pain is a 7 out of 10. At [facility], x-ray was completed showing mild fluid overload. Troponin was found to be elevated at 390. Cardiology team was contacted and they recommended transfer for higher level of care. She was also started on a heparin infusion at that time. Upon arrival to [facility], repeat labs were completed showing troponin 337, hemoglobin 9.7, BNP 77, INR 1.15, magnesium 1.7. Review of System and Physical Exam Temp: [36.1 ??C (97 ??F)] 36.1 ??C (97 ??F) Heart Rate: [68-86] 86 Resp: [14-19] 16 BP: (99-117)/(44-50) 99/50 Physical Exam Vitals reviewed. Constitutional: Appearance: She is normal weight. HENT: Head: Normocephalic. Nose: Nose normal. Mouth/Throat: Pharynx: Oropharynx is clear. Eyes: Conjunctiva/sclera: Conjunctivae normal. Cardiovascular: Rate and Rhythm: Normal rate. Pulses: Normal pulses. Heart sounds: Normal heart sounds. Pulmonary: Effort: Pulmonary effort is normal. Breath sounds: Normal breath sounds. Abdominal: General: Abdomen is flat. Bowel sounds are normal. Palpations: Abdomen is soft. Musculoskeletal: General: Normal range of motion. Skin: General: Skin is warm and dry. Capillary Refill: Capillary refill takes less than 2 seconds. Neurological: General: No focal deficit present. Mental Status: She is alert and oriented to person, place, and time. Mental status is at baseline. Psychiatric: Mood and Affect: Mood normal. Review of Systems Constitutional: Positive for fatigue. Negative for chills and diaphoresis. HENT: Negative for congestion and dental problem. Respiratory: Positive for shortness of breath. Negative for cough, choking and wheezing. Cardiovascular: Positive for chest pain. Negative for palpitations. Gastrointestinal: Positive for nausea and vomiting. Negative for constipation and diarrhea. Musculoskeletal: Negative for arthralgias and back pain. Skin: Negative for color change and pallor. Neurological: Positive for dizziness and light-headedness. Negative for seizures, facial asymmetry,numbness and headaches. Psychiatric/Behavioral: Negative for agitation, behavioral problems, confusion and decreased concentration. Assessment and Plan Assessment & Plan Chest pain - Troponin 390 at outside hospital, repeat of 337 -Continue IV heparin infusion -N.p.o. midnight for possible intervention -EKG shows sinus rhythm with occasional PVCs and a prolonged QT -Optimize electrolytes -Cardiology consultation Prolonged Q-T interval on ECG - QT prolonged on EKG, will hold all QT prolonging agents -Recommend repeat EKG in a.m. Type 2 diabetes mellitus without complication, without long-term current use of insulin ([facility]) - Patient currently taking metformin at home, will begin ISS, ACHS Protein calorie malnutrition - Patient currently requiring TPN -Port to her right chest -Clinical dietitian consult- Gastroparesis - Patient initially with a J-tube in place, however, the JG became infected and had to be taken out -Patient reports plan for reinsertion in the near future Median arcuate ligament syndrome - S/p celiac plexus block and then MALS release GERD (gastroesophageal reflux disease) -Continue PPI Acquired hypothyroidism - Continue levothyroxine Asthma - Continue albuterol inhaler as needed IBS (irritable bowel syndrome) - Stable, last BM yesterday S/P laparoscopic sleeve gastrectomy - Stable VTE Prophylaxis: IV heparin ----- Focus of this inpatient stay will [...] this hospital stay by a member of [facility] Medicine. Past Medical History Medical History[1] Past [...] of Health Financial Resource Strain: Low Risk (10/30/2024) Overall Financial Resource Strain (CARDIA) Difficulty of Paying Living Expenses: Not hard at all Food Insecurity: No Food Insecurity (10/30/2024) Hunger Vital Sign Worried About Running Out of Food in the Last Year: Never true Ran Out of Food in the Last Year: Not on file Transportation Needs: No Transportation Needs (10/30/2024) Transportation Lack of Transportation (Medical): No Lack of Transportation (Non-Medical): Not on file Physical Activity: Insufficiently Active (06/30/2023) Received from [facility] Exercise Vital Sign Days of Exercise per Week: 3 days Minutes of Exercise per Session: 10 min Stress: Stress Concern Present (06/30/2023) Received from [facility] [place] [facility] - Occupational Stress Questionnaire Feeling of Stress : Rather much Social Connections: Moderately Integrated (06/30/2023) Received from [facility] Social Connection and Isolation Panel [NHANES] Frequency of Communication with Friends and Family: Twice a week Frequency of Social Gatherings with Friends and Family: Twice a week Attends Denominational Services: More than 4 times per year Active Member of Clubs or Organizations: No Attends Club or Organization Meetings: Never Marital Status: Intimate Partner Violence: Unknown (10/30/2024) Humiliation, Afraid, Rape, and Kick questionnaire Fear of Current or Ex-Partner: No Emotionally Abused: Not on file Physically Abused: Not on file Sexually Abused: Not on file Housing Stability: Low Risk (10/30/2024) Housing Stability Vital Sign Unable to Pay for Housing in the Last Year: No Number of Times Moved in the Last Year: 0 Homeless in the Last Year: No Family History family history is not on file. Allergies is allergic to codeine, nsaids (non-steroidal anti-inflammatory drug), and adhesive. Prior to Admission Medications Prescriptions Prior to Admission[3] Labs Labs Reviewed COMPREHENSIVE METABOLIC PANEL - Abnormal Result Value Sodium 139 Potassium 3.7 Chloride 110 (*) CO2 23 Anion Gap 10 BUN 5 (*) Creatinine 0.64 BUN/Creatinine Ratio 7.8 Glucose 101 (*) Calcium 7.8 (*) AST 19 ALT (SGPT) 7 Alkaline Phosphatase 45 Total Protein 5.0 (*) Albumin 3.2 (*) Total Bilirubin 0.2 (*) eGFR 118.1 MAGNESIUM - Abnormal Magnesium 1.7 (*) HIGH SENSITIVITY TROPONIN I - Abnormal High Sensitivity Troponin I 337 (*) PROTIME-INR - Abnormal Protime 14.8 INR 1.15 (*) CBC WITH AUTO DIFFERENTIAL - Abnormal Auto WBC 4.32 RBC 3.30 (*) Hemoglobin 9.7 (*) Hematocrit 29.6 (*) MCV 89.7 MCH 29.4 MCHC 32.8 RDW 13.4 Neutrophils % 44.2 Lymphocytes % 44.9 Monocytes % 7.9 Eosinophils % 2.1 Basophils % 0.9 Neutrophils Absolute 1.91 Lymphocytes Absolute 1.94 Monocytes Absolute 0.34 Eosinophils Absolute 0.09 Basophils Absolute 0.04 Platelets 272 nRBC % 0.0 Immature Granulocytes % 0.0 Immature Granulocytes Absolute 0.00 APTT - Abnormal aPTT 42.0 (*) ANTI-XA (HEPARIN LEVEL) - Abnormal Anti-Xa (Heparin) <0.10 (*) PHOSPHORUS - Normal Phosphorus 4.4 B-TYPE NATRIURETIC PEPTIDE - Normal BNP 77 TSH3 REFLEX TO FT4 - Normal TSH 3.46 CBC AND DIFFERENTIAL Narrative: The following orders were created for panel order CBC and differential. Procedure Abnormality Status --------- ------ CBC auto differential[[id number]] Abnormal Final result Please view results for these tests on the individual orders. HIGH SENSITIVITY TROPONIN I ANTI-XA (HEPARIN LEVEL) POCT GLUCOSE METER Imaging ECG 12 lead Sinus rhythm with sinus arrhythmia with occasional Premature ventricular complexes Prolonged QT Abnormal ECG No previous ECGs available [facility] 10/30/2024 8:57 PM [1] No past medical history on file. [2] No past surgical history on file. [3] Medications Prior to Admission Medication Sig Dispense Refill Last Dose/Taking acetaminophen (Tylenol) 325 mg tablet Take 650 mg by mouth every 4 (four) hours if needed for mild pain (1-3 pain score). ALBUTEROL INHL Inhale 90 mcg every 6 (six) hours if needed (SOB or wheezing). dexAMETHasone (Decadron) 2 mg tablet Take 3 mg by mouth in the morning. ergocalciferol (Vitamin D-2) 1.25 MG (68669 Units) capsule Take 50,000 Units by mouth 1 (one) time per week. escitalopram (Lexapro) 20 mg tablet Take 20 mg by mouth in the morning. fentaNYL (Duragesic) 12 mcg/hr Place 1 patch on the skin every 3rd (third) day. Takes 12 mcg and 25mcg together every 3 days fentaNYL (Duragesic) 25 mcg/hr Place 1 patch on the skin every 3rd (third) day. HYDROcodone-acetaminophen (Marcellus) 5-325 mg tablet Take 2 tablets by mouth every 4 (four) hours if needed for moderate-severe pain (4-10 pain score). hydrocortisone (Cortef) 10 mg tablet Take 10 mg by mouth in the morning. hydrOXYzine HCL (Atarax) 25 mg tablet Take 50 mg by mouth if needed at bedtime. levothyroxine (Synthroid, Levoxyl) 75 mcg tablet Take 75 mcg by mouth before breakfast. linaCLOtide (Linzess) 290 mcg capsule Take 290 mcg by mouth before breakfast. Do not crush or chew. liothyronine (Cytomel) 5 mcg tablet Take 5 mcg by mouth in the morning. metFORMIN, OSM, (Fortamet) 500 mg 24 hr tablet Take 500 mg by mouth with breakfast and with eveningmeal. Do not crush, chew, or split. methocarbamol (Robaxin) 500 mg tablet Take 750 [...] evening meal. Do not crush or chew. prochlorperazine (Compazine) 10 mg tablet Take 10 mg by mouth every 6 (six) hours if needed for nausea or vomiting. prucalopride 2 mg tablet Take 2 mg by mouth in the morning. sucralfate (Carafate) 1 gram tablet Take 1 g by mouth before breakfast, before lunch, before evening meal, and at bedtime. topiramate (Topamax) 100 mg tablet Take 100 mg by mouth two times daily. traMADol (Ultram) 50 mg tablet Take 50 mg by mouth every 6 (six) hours if needed. traZODone (Desyrel) 100 mg tablet Take 100 mg by mouth at bedtime. Cosigned by Urbano Santos MD at 11/09/2024 6:56 AM EDT documented in this encounter Consult Notes * Lan Rose MD - 11/03/2024 2:49 PM EDTAssociated Order(s): IP CONSULT TO UROLOGY Images from the original note were not included. [facility] Department of Urology CONSULTATION Reason for Consult: Urinary retention History of Present Illness: Juan Kong is a 34 y.o. female with urinary retention. Patient has extensive past medical historyincluding hyperlipidemia hypertension asthma RICHAR hypothyroidism GERD DM2 IBS median arcuate ligament syndrome status post celiac block and MALS release obesity status post sleeve gastrectomy and significant weight loss adhesions complicated by recurrent bowel obstructions and resultant gastroparesis requiring J-tube which was subsequently removed due to infection and failure to thrive. Patient was a transfer from [facility] due to an NSTEMI. Underwent cardiac catheterizations 10/31 11/01 and 11/02. She did have a postoperative expanding right groin hematoma and was taken emergently overnight 11/02 into 11/03 for exploration where several luminal defects with active arterial bleeding were encountered. Artery was clamped and these defects were repaired primarily. Please refer to vascular note for further details. Patient experienced postoperative retention. Was successfully straight cathed X1 with total urine volume approximately 1 L. Did was bladder scan today with volumes greater than 600 mL and postvoid. Urology consulted for retention. Patient states that since her MALS release,she has had issues with retention. Was previously seen in [facility] for this[facility]-good specialist for questionable prolapse - Pelvic exam at that time (late 2023) was without tricompartmental support was noted patient was given the option for Myrbetriq and Gemtesa.. However it is not clear whether patient actually began taking either of thesemedications. Does not appear that any urodynamic evaluation has been completed Review of Systems: No F/C/N/V/hematuria/dysuria Medical History[1] Surgical History[2] Allergies[3] Current Medications[4] [...] of Health Financial Resource Strain: Low Risk (10/30/2024) Overall Financial Resource Strain (CARDIA) Difficulty of Paying Living Expenses: Not hard at all Food Insecurity: No Food Insecurity (10/30/2024) Hunger Vital Sign Worried About Running Out of Food in the Last Year: Never true Ran Out of Food in the Last Year: Not on file Transportation Needs: No Transportation Needs (10/30/2024) Transportation Lack of Transportation (Medical): No Lack of Transportation (Non-Medical): Not on file Physical Activity: Insufficiently Active (06/30/2023) Received from [facility] Exercise Vital Sign Days of Exercise per Week: 3 days Minutes of Exercise per Session: 10 min Stress: Stress Concern Present (06/30/2023) Received from [facility] [place] [employer] - Occupational Stress Questionnaire Feeling of Stress : Rather much Social Connections: Moderately Integrated (06/30/2023) Received from [facility] Social Connection and Isolation Panel [NHANES] Frequency of Communication with Friends and Family: Twice a week Frequency of Social Gatherings with Friends and Family: Twice a week Attends Denominational Services: More than 4 times per year Active Member of Clubs or Organizations: No Attends Club or Organization Meetings: Never Marital Status: Intimate Partner Violence: Unknown (10/30/2024) Humiliation, Afraid, Rape, and Kick questionnaire Fear of Current or Ex-Partner: No Emotionally Abused: Not on file Physically Abused: Not on file Sexually Abused: Not on file Housing Stability: Low Risk (10/30/2024) Housing Stability Vital Sign Unable to Pay for Housing in the Last Year: No Number of Times Moved in the Last Year: 0 Homeless in the Last Year: No Family History[5] Physical Exam Constitutional: General: She is not in acute distress. HENT: Head: Normocephalic and atraumatic. Nose: No congestion. Eyes: General: Right eye: No discharge. Left eye: No discharge. Cardiovascular: Rate and Rhythm: Normal rate. Pulmonary: Effort: No respiratory distress. Abdominal: Tenderness: There is no abdominal tenderness. Neurological: General: No focal deficit present. Vital Signs: Blood pressure 125/66, pulse 101, temperature 36.5 ??C (97.7 ??F), temperature source Oral, resp. rate 11, height 1.676 m (5' 5.98 ), weight 84.8 kg (186 lb 15.2 oz), SpO2 95%. Admission Weight: Weight: 82.1 kg (181 lb) Labs: Lab Results Component Value Date WBC 7.60 11/03/2024 HGB 9.0 (L) 11/03/2024 HCT 26.7 (L) 11/03/2024 MCV 88.7 11/03/2024 PLT 253 11/03/2024 Lab Results Component Value Date CALCIUM 7.9 (L) 11/03/2024 NA 136 11/03/2024 K 4.4 11/03/2024 CO2 22 11/03/2024 CL 108 (H) 11/03/2024 BUN 6 (L) 11/03/2024 CREATININE 0.52 (L) 11/03/2024 No results found for: AMYLASE No results found for: LIPASE Lab Results Component Value Date ALT 7 10/30/2024 AST 19 10/30/2024 ALKPHOS 45 10/30/2024 Lab Results Component Value Date INR 1.17 (H) 11/03/2024 INR 1.15 (H) 10/30/2024 Imaging: ECG 12 lead Normal sinus rhythm T abnormalities consider high lateral ischemia Mild ST elevation in V2 and V3 , consider acute septal injury Abnormal ECG Confirmed by Griffin Diaz ([id number]) on 11/02/2024 10:58:13 PM Cardiac catheterization PROCEDURE PHYSICIAN: Wali Collins MD Clinical Presentation: 34 y.o. 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 The MLA by IVUS was 2.9 mm2 2) Non-significant iFR of 0.92 and 0.93 Recommendations: 1) Continued medical management of non-flow limiting coronary dissection with addition of calcium antagonist for possible coronary spasm at the site of dissection Procedures Performed: coronary angiography, intravascular ultrasound LAD, iFR determination Omni guidewire, conscious sedation (see attached sheet for details), ultrasound guidance for vascular access Procedure Description: Due to recurrent chest pain and increase in troponin values the patient was brought to the cardiac catheterization lab . Informed written consent was obtained. she was prepped and draped in usual sterile fashion. Time-out was performed. she was given Versed and fentanyl for sedation. 1% lidocaine was infiltrated over the right femoral artery. A 6-Iranian sheath was placed in right femoral artery. Coronary angiography was performed with a JL4 and then repeated after IC nitroglycerin 50 mcg x 2. At this time, it was apparent that the LAD had a moderate stenosis and IVUS and iFR were performed. Heparin anticoagulation was used for this procedure. ACT was maintained at >250 seconds. A 6 Iranian xb3 was engaged to the Lmain. I then advanced a 0.014 guidewire to the distal left anterior descending. IVUS imaging was performed with a Refinity catheter after additional IC nitroglycerin and IV nitroglycerin Next, an Omni wire was placed and an iFR performed x2 after normalizing pressures. After completion of the procedure all catheters and wires were removed. The right femoral sheath was removed and manual pressure was applied to obtain hemostasis. Specimens Removed: None Complications: None Coronary Angiogram: Left main: Normal LAD: In the mid vessel there is an area of myocardial bridging followed by a discrete angiographic stenosis. The entire segment increased in diameter with IV nitroglycerin. On the delayed image there is persistence of contrast along the lateral wall of the LAD in a linear fashion consistent with but not diagnostic for a dissection flap LCX: Normal RCA: not imaged. Was imaged one and two days prior Intravascular ultrasound: In the mid vessel there is an atherosclerotic plaque with a MLA of 2.9 mm2 Distal to this the vessel is 3 mm in diameter. At the site of plaque there is a discrete dissection. Before the plaque there is myocardial bridging with some dissection of the intima evident Cardiac catheterization PROCEDURE PHYSICIAN: Tino Gilmore MD . Indications: Juan Kong is a 34 y.o. female who is admitted with chest pain and elevated troponin as well as EKG changes. She was diagnosed NSTEMI and referred for cardiac catheterization. Assistants: Cardiovascular Fellow Dr Janet Soto. Procedure Performed: Coronary angiogram. Left heart catheterization. Administration of intraarterial nitroglycerin to treat radial artery spasm. Access into the left radial artery under ultrasound guidance. Methods: Procedure was explained to the patient with risks and benefits; she signed informed consent. 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 The left wrist area was prepped and draped in usual fashion. Micropuncture technique was used for access in the radial artery. A 5-Iranian x 11 cm sheath was placed. Verapamil was given through the sheath, and heparin was administered intravenously. A 5 Iranian JR4 diagnostic catheter was advanced and this was used to perform left heart catheterization with measurement of pressures. Pullback across aortic valve was performed with measurement of pressures. The catheter was used to attempt engagement of the right coronary artery however this was not possible. At this point the patient started developing radial artery spasm. This was treated by administration of intra-arterial nitroglycerin. The catheter was then downsized to a 4 Iranian JR4 diagnostic catheter however this also was not able to engage the right coronary artery. Catheter was exchanged to a JR4 diagnostic catheter which could not engage the left coronary artery. Catheter was exchanged to a 4 Iranian JL 3.5 diagnostic catheter which eventually was able to engage the left coronary artery. Angiography was performed in multiple views. Catheter was exchanged over the wire to a 4 Iranian 3DRC catheter. Multiple attempts were made to engage the right coronary artery however these failed. Nonselective aortic root angiography was performed however there was no evidence of opacification of the origin of the right coronary artery. At this point the patient developed additional spasm in the radial artery with significant pain which prevented further manipulation of the catheter. At this point the catheter was retracted. Intra-arterial nitroglycerin was administered through the radial sheath. The procedure was concluded. Hemostasis was achieved by TR band in the radial artery. she tolerated the procedure well and was transferred back to the hospital room. Hemodynamic Data: LV: 159/9, 19 AO: 159/92 (121) Coronary angiography: This is a left-dominant circulation. Left Main: This arises from the left coronary cusp. It bifurcates into left anterior descending and circumflex vessels. This is angiographically normal. Left anterior descending: Mild disease is noted in the mid segment of the LAD. The rest of the LAD is free of disease. Circumflex: This is a dominant vessel. This is angiographically normal. Right coronary artery: There was inability to engage the right coronary artery and the origin of the artery was not apparent on nonselective aortic root injections. 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 Impression/Findings: Mild disease in the LAD. 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 Mildly to moderately elevated left filling pressures. No aortic stenosis. Plan: Aspirin 81 mg daily. Statin therapy. The patient will be scheduled for cardiac catheterization to be performed from the femoral access given limitations of radial access due to spasm. Further recommendations per inpatient Cardiology service. Tino Gilmore MD Assessment: Juan Kong is a 34 y.o.female with retention Active Problem List Retention Possible OAB Plan: Costello catheter 14Fr placed at bedside with return of clear light yellow urine Maintain Costello catheter Recommend bowel regimen titrated to 1-2 soft bowel movements per day Avoid narcotics/anticholinergics Patient will require followup for further evaluation of urinary symptoms and workup for dysfunctional voiding Recommend maintaining costello catheter at least 1 week prior to void trial Lan Rose MD Urology Resident 2:49 PM 11/03/24 [1] No past medical history on file. [2] No past surgical history on file. [3] Allergies Allergen Reactions Codeine Nausea And Vomiting Nsaids (Non-Steroidal Anti-Inflammatory Drug) GI intolerance Adhesive Rash [4] Current Facility-Administered Medications: acetaminophen (Tylenol) tablet 650 mg, 650 mg, oral, q8h PRN, Sid McReynaillin, PA-C Adult Cyclic 3-in-1 TPN, 2,300 mL, intravenous, Cyclic TPN, [place], RD albuterol 90 mcg/actuation inhaler 2 puff, 2 puff, inhalation, q6h PRN, Debbie Luna CNP aspirin EC tablet 81 mg, 81 mg, oral, Daily, Sid Cruz, PA-C, 81 mg at 11/03/24 1319 atorvastatin (Lipitor) tablet 80 mg, 80 mg, oral, Nightly, Rosa E Case, PA-C clopidogrel (Plavix) tablet 75 mg, 75 mg, oral, Daily, Sid Cruz PA-C, 75 mg at 11/03/24 1319 glucose chewable tablet 24 g, 24 g, oral, q15 min PRN OR dextrose 50 % in water (D50W) syringe 25 g, 25 g, intravenous, q15 min PRN, Debbie Luna CNP, 25 g at 10/31/24 1228 diphenhydrAMINE (BENADryl) injection 12.5 mg, 12.5 mg, intravenous, q6h PRN, Ky Ritter MD, 12.5 mg at 11/02/24 0557 enoxaparin (Lovenox) syringe 30 mg, 30 mg, subcutaneous, BID, Sid Cruz PA-C, 30 mg at 11/03/24 1012 escitalopram (Lexapro) tablet 20 mg, 20 mg, oral, Daily, Rosa Willoughby PA-C, 20 mg at 11/03/24 1012 fentaNYL (Duragesic) 25 mcg/hr 1 patch, 1 patch, transdermal, q72h, Rosa Willoughby PA-C, 1 patch at 11/03/24 1128 HYDROcodone-acetaminophen (Marcellus) 5-325 mg per tablet 1 tablet, 1 tablet, oral, q4h PRN, 1 tablet at 11/03/24 1011 OR HYDROcodone-acetaminophen (Marcellus) 5- 325 mg per tablet 2 tablet, 2 tablet, oral, q4h PRN, Ky Ritter MD, 2 tablet at 11/03/24 1319 hydrocortisone (Cortef) tablet 10 mg, 10 mg, oral, Daily, Debbie Luna CNP, 10 mg at 11/03/24 1014 HYDROmorphone (Dilaudid) injection 0.2 mg, 0.2 mg, intravenous, q3h PRN, Sid Cruz PA-C hydrOXYzine pamoate (Vistaril) capsule 50 mg, 50 mg, oral, Nightly PRN, Debbie Luna CNP insulin lispro (HumaLOG) injection 0-5 Units, 0-5 Units, subcutaneous, TID with meals AND insulin lispro (HumaLOG) injection 0-4 Units, 0-4 Units, subcutaneous, Nightly, Rosa Willoughby PA-C levothyroxine (Synthroid, Levoxyl) tablet 75 mcg, 75 mcg, oral, Daily before breakfast, Rosa Willoughby PA-C, 75 mcg at 11/03/24 0607 liothyronine (Cytomel) tablet 5 mcg, 5 mcg, oral, Daily, Rosa Willoughby PA-C, 5 mcg at 11/03/24 1012 magnesium oxide (Mag-Ox) tablet 400 mg, 400 mg, oral, q8h PRN, Rosa Willoughby PA-C magnesium sulfate in D5W IVPB 1 g, 1 g, intravenous, q1h PRN, Rosa Willoughby PA-C magnesium sulfate in D5W IVPB 1 g, 1 g, intravenous, q1h PRN, Rosa Willoughby PA-C magnesium sulfate in D5W IVPB 1 g, 1 g, intravenous, q1h PRN, Rosa Willoughby PA-C magnesium sulfate in D5W IVPB 1 g, 1 g, intravenous, q1h PRN, Rosa Willoughby PA-C melatonin tablet 5 mg, 5 mg, oral, Nightly PRN, Debbie Luna, BEEF SPECIALIST methocarbamol (Robaxin) tablet 750 mg, 750 mg, oral, 4x daily, Rosa Willoughby PA-C, 750 mg at 11/03/24 1319 metoclopramide (Reglan) tablet 10 mg, 10 mg, oral, Daily PRN, Debbie Luna CNP, 10 mg at 11/03/24 0840 metoprolol succinate XL (Toprol-XL) 24 hr split tablet 12.5 mg, 12.5 mg, oral, Daily, Rosa Willoughby PA-C, 12.5 mg at 11/03/24 1014 mirtazapine (Remeron) tablet 45 mg, 45 mg, oral, Nightly, Rosa Willoughby PA-C pantoprazole (ProtoNix) EC tablet 40 mg, 40 mg, oral, BID AC, Rosa Willoughby PA-C, 40 mg at 11/03/24 0607 potassium chloride CR (Klor-Con M20) ER tablet 20 mEq, 20 mEq, oral, q1h PRN, Rosa Willoughby PA-C potassium chloride CR (Klor-Con M20) ER tablet 20 mEq, 20 mEq, oral, q1h PRN, HENNY Hendrickson-Elroy potassium chloride CR (Klor-Con M20) ER tablet 20 mEq, 20 mEq, oral, q1h PRN, Rosa Willoughby PA-C potassium chloride IVPB 10 mEq, 10 mEq, intravenous, q1h PRN AND potassium chloride CR (Klor-Con M20) ER tablet 40 mEq, 40 mEq, oral, q2h PRN, Rosa Willoughby PA-C potassium chloride IVPB 10 mEq, 10 mEq, intravenous, q1h PRN, HENNY Hendrickson-[place] potassium chloride IVPB 10 mEq, 10 mEq, intravenous, q1h PRN, HENNY Hendrickson-[place] potassium chloride IVPB 10 mEq, 10 mEq, intravenous, q1h PRN, HENNY Hendrickson-[place] potassium chloride IVPB 10 mEq, 10 mEq, intravenous, q1h PRN, Rosa Willoughby PA-C prochlorperazine (Compazine) injection 10 mg, 10 mg, intravenous, Once, Janet Soto MD prochlorperazine (Compazine) injection 5 mg, 5 mg, intravenous, Once PRN, Robin Luz MD sennosides-docusate sodium (Kadie-Colace) 8.6-50 mg per tablet 1 tablet, 1 tablet, oral, Nightly PRN, Rosa Willoughby PA-C sod phos di, mono-K phos mono (K Phos Neutral) tablet 2 tablet, 500 mg, oral, q4h PRN, Rosa Willoughby PA-C sod phos di, mono-K phos mono (K Phos Neutral) tablet 4 tablet, 1,000 mg, oral, q4h PRN, Rosa Willoughby PA-C [CANCELED] Insert peripheral IV, , , Once AND [CANCELED] Saline lock IV, , , Once AND sodium chloride flush 10 mL, 10 mL, intravenous, q8h PRN, Debbie Luna CNP sucralfate (Carafate) tablet 1 g, 1 g, oral, Before meals & nightly, Rosa Willoughby PA-C, 1 g at 11/03/24 1013 topiramate (Topamax) tablet 100 mg, 100 mg, oral, BID, Rosa Willoughby PA-C, 100 mg at 11/03/24 1013 traMADol (Ultram) tablet 50 mg, 50 mg, oral, q6h PRN, Debbie Pirkl, BEEF SPECIALIST, 50 mg at 11/03/24 0838 traZODone (Desyrel) tablet 100 mg, 100 mg, oral, Nightly, Rosa Willoughby PA-C trimethobenzamide (Tigan) injection 200 mg, 200 mg, intramuscular, q6h PRN, Debbie Pirkl, BEEF SPECIALIST, 200 mg at 11/03/24 0018 [5] No family history on file. Cosigned by Nic Aviles MD at 11/10/2024 3:02 PM EDT * Miles Ramos MD - 11/02/2024 7:54 PM EDTAssociated Order(s): IP CONSULT TO VASCULAR SURGERY Images from the original note were not included. [facility] Vascular/Endovascular Surgery [employer] Technician Complaint R groin hematoma History and Present Illness Juan Kong is a 34 y.o. White female s/p coronary angiography with R femoral access now with R groin hematoma. Pt is in pain and pale. Significant R groin hematoma present. Palpable R DP pulse withPT signals. ACT was 178 before pulling sheath. Past Medical History Medical History[1] Past Surgical History Surgical History[2] Allergies Allergies[3] Current Medications aspirin, 81 mg, oral, Daily with breakfast atorvastatin, 80 mg, oral, Nightly clopidogrel, 75 mg, oral, Daily escitalopram, 20 mg, oral, Daily [START ON 11/03/2024] fentaNYL, 1 patch, transdermal, q72h fentaNYL, 1 patch, transdermal, q72h heparin (porcine), 5,000 Units, subcutaneous, q8h TANIA hydrocortisone, 10 mg, oral, Daily insulin lispro, 0-5 Units, subcutaneous, TID with meals And insulin lispro, 0-4 Units, subcutaneous, Nightly levothyroxine, 75 mcg, oral, Daily before breakfast liothyronine, 5 mcg, oral, Daily methocarbamol, 750 mg, oral, 4x daily metoprolol succinate XL, 12.5 mg, oral, Daily mirtazapine, 45 mg, oral, Nightly ondansetron HCl (PF), 4 mg, intravenous, Once pantoprazole, 40 mg, oral, BID AC prochlorperazine, 10 mg, intravenous, Once sucralfate, 1 g, oral, Before meals & nightly topiramate, 100 mg, oral, BID traZODone, 100 mg, oral, Nightly Home Medications Prescriptions Prior to Admission[4] Social History Social History Socioeconomic History Marital [...] of Health Financial Resource Strain: Low Risk (10/30/2024) Overall Financial Resource Strain (CARDIA) Difficulty of Paying Living Expenses: Not hard at all Food Insecurity: No Food Insecurity (10/30/2024) Hunger Vital Sign Worried About Running Out of Food in the Last Year: Never true Ran Out of Food in the Last Year: Not on file Transportation Needs: No Transportation Needs (10/30/2024) Transportation Lack of Transportation (Medical): No Lack of Transportation (Non-Medical): Not on file Physical Activity: Insufficiently Active (06/30/2023) Received from [facility] Exercise Vital Sign Days of Exercise per Week: 3 days Minutes of Exercise per Session: 10 min Stress: Stress Concern Present (06/30/2023) Received from [facility] [place] [employer] [employer] - Occupational Stress Questionnaire Feeling of Stress : Rather much Social Connections: Moderately Integrated (06/30/2023) Received from [facility] Social Connection and Isolation Panel [NHANES] Frequency of Communication with Friends and Family: Twice a week Frequency of Social Gatherings with Friends and Family: Twice a week Attends Denominational Services: More than 4 times per year Active Member of Clubs or Organizations: No Attends Club or Organization Meetings: Never Marital Status: Intimate Partner Violence: Unknown (10/30/2024) Humiliation, Afraid, Rape, and Kick questionnaire Fear of Current or Ex-Partner: No Emotionally Abused: Not on file Physically Abused: Not on file Sexually Abused: Not on file Housing Stability: Low Risk (10/30/2024) Housing Stability Vital Sign Unable to Pay for Housing in the Last Year: No Number of Times Moved in the Last Year: 0 Homeless in the Last Year: No Primary Care Physician Thomas Alas MD Family Histroy Family History[5] Review Of Systems All 14 points were reviewed and were negative except for what mentioned in the history of presenting illness. Objective Vital signs: Vitals: 11/02/24 19211/02/24192611/02/24192911/02/241944 BP: 114/59 (!) 122/95 93/57 103/59 BP Location: Patient Position: Pulse: 94 94 96 102 Resp: 20 20 16 14 Temp: TempSrc: SpO2: 98% 98% 100% Weight: Height: Temperature Range Last 24 Hours : Temp: 35.9 ??C (96.7 ??F) Temp Av.9 ??C (96.7 ??F) Min: 35.9??C (96.7 ??F) Max: 35.9 ??C (96.7 ??F) Admit Weight: 82.1 kg (181 lb) Body mass index is 30.21 kg/m??. Last Weights: Wt Readings from Last 3 Encounters: 11/02/24 84.9 kg (187 lb 1.6 oz) 08/20/24 86.5 kg (190 lb 11.2 oz) I/O's: Intake/Output Summary (Last 24 hours) at 11/02/20241953 Last data filed at 11/02/2024 1800 Gross per 24 hour Intake 4411.31 ml Output 5010 ml Net -598.69 ml Physical Exam General: Alert, NAD HEENT: NCAT, PERRL, EOMI, MMM Neck: supple CV: Regular rate and rhythm, NMGR Lungs: Nonlabored, no accessory muscle use, saturating well on room air Abd: Soft, nontender, nondistended Skin: Warm, dry, capillary refill < 2 sec Neuro / MSK: No gross neurologic deficits noted - BUE: Adequate ROM - BLE: Adequate ROM Vascular Exam Vascular: RLE Pulses: Femoral: N/A 2/2 hematoma DP: 2+ PT: Edema: none Labs/Imaging Results from last 7 days Lab Units 11/02/24 0615 11/01/24 1010 10/31/24 0610/30/241910 WBC AUTO 10*3/uL 4.49 4.80 3.65* 4.32 HEMOGLOBIN g/dL 10.8* 11.3* 9.4* 9.7* HEMATOCRIT % 33.3* 34.6* 29.2* 29.6* PLATELETS AUTO 10*3/uL 292 300 235 272 NEUTROS PCT % -- -- -- 44.2 MONO PCT % -- -- -- 7.9 EOS PCT % -- -- -- 2.1 Results from last 7 days Lab Units 11/01/24 1010 10/31/24 0610/30/241910 POTASSIUM mmol/L 4.6 4.0 3.7 CO2 mmol/L 27 26 23 BUN mg/dL 9 5* 5* CREATININE mg/dL 0.53* 0.60 0.64 Results from last 7 days Lab Units 10/30/241910 INR 1.15* CBC: Lab Results Component Value Date WBC 4.49 11/02/2024 RBC 3.69 (L) 11/02/2024 HGB 10.8 (L) 11/02/2024 HCT 33.3 (L) 11/02/2024 MCV 90.2 11/02/2024 RDW 13.4 11/02/2024 PLT 292 11/02/2024 Imaging Cardiac catheterization PROCEDURE PHYSICIAN: Wali Collins MD Clinical Presentation: 34 y.o. 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 The MLA by IVUS was 2.9 mm2 2) Non-significant iFR of 0.92 and 0.93 Recommendations: 1) Continued medical management of non-flow limiting coronary dissection with addition of calcium antagonist for possible coronary spasm at the site of dissection Procedures Performed: coronary angiography, intravascular ultrasound LAD, iFR determination Omni guidewire, conscious sedation (see attached sheet for details), ultrasound guidance for vascular access Procedure Description: Due to recurrent chest pain and increase in troponin values the patient was brought to the cardiac catheterization lab . Informed written consent was obtained. she was prepped and draped in usual sterile fashion. Time-out was performed. she was given Versed and fentanyl for sedation. 1% lidocaine was infiltrated over the right femoral artery. A 6-Iranian sheath was placed in right femoral artery. Coronary angiography was performed with a JL4 and then repeated after IC nitroglycerin 50 mcg x 2. At this time, it was apparent that the LAD had a moderate stenosis and IVUS and iFR were performed. Heparin anticoagulation was used for this procedure. ACT was maintained at >250 seconds. A 6 Iranian xb3 was engaged to the Lmain. I then advanced a 0.014 guidewire to the distal left anterior descending. IVUS imaging was performed with a Refinity catheter after additional IC nitroglycerin and IV nitroglycerin Next, an Omni wire was placed and an iFR performed x2 after normalizing pressures. After completion of the procedure all catheters and wires were removed. The right femoral sheath was removed and manual pressure was applied to obtain hemostasis. Specimens Removed: None Complications: None Coronary Angiogram: Left main: Normal LAD: In the mid vessel there is an area of myocardial bridging followed by a discrete angiographic stenosis. The entire segment increased in diameter with IV nitroglycerin. On the delayed image there is persistence of contrast along the lateral wall of the LAD in a linear fashion consistent with but not diagnostic for a dissection flap LCX: Normal RCA: not imaged. Was imaged one and two days prior Intravascular ultrasound: In the mid vessel there is an atherosclerotic plaque with a MLA of 2.9 mm2 Distal to this the vessel is 3 mm in diameter. At the site of plaque there is a discrete dissection. Before the plaque there is myocardial bridging with some dissection of the intima evident ECG 12 lead Normal sinus rhythm Prolonged QT Abnormal ECG When compared with ECG of 02-NOV-2024 13:02, (unconfirmed) Premature ventricular complexes are no longer Present Cardiac catheterization PROCEDURE PHYSICIAN: Tino Gilmore MD . Indications: Juan Kong is a 34 y.o. female who is admitted with chest pain and elevated troponin as well as EKG changes. She was diagnosed NSTEMI and referred for cardiac catheterization. Assistants: Cardiovascular Fellow Dr Janet Soto. Procedure Performed: Coronary angiogram. Left heart catheterization. Administration of intraarterial nitroglycerin to treat radial artery spasm. Access into the left radial artery under ultrasound guidance. Methods: Procedure was explained to the patient with risks and benefits; she signed informed consent. 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 The left wrist area was prepped and draped in usual fashion. Micropuncture technique was used for access in the radial artery. A 5-Iranian x 11 cm sheath was placed. Verapamil was given through the sheath, and heparin was administered intravenously. A 5 Iranian JR4 diagnostic catheter was advanced and this was used to perform left heart catheterization with measurement of pressures. Pullback across aortic valve was performed with measurement of pressures. The catheter was used to attempt engagement of the right coronary artery however this was not possible. At this point the patient started developing radial artery spasm. This was treated by administration of intra-arterial nitroglycerin. The catheter was then downsized to a 4 Iranian JR4 diagnostic catheter however this also was not able to engage the right coronary artery. Catheter was exchanged to a JR4 diagnostic catheter which could not engage the left coronary artery. Catheter was exchanged to a 4 Iranian JL 3.5 diagnostic catheter which eventually was able to engage the left coronary artery. Angiography was performed in multiple views. Catheter was exchanged over the wire to a 4 Iranian 3DRC catheter. Multiple attempts were made to engage the right coronary artery however these failed. Nonselective aortic root angiography was performed however there was no evidence of opacification of the origin of the right coronary artery. At this point the patient developed additional spasm in the radial artery with significant pain which prevented further manipulation of the catheter. At this point the catheter was retracted. Intra-arterial nitroglycerin was administered through the radial sheath. The procedure was concluded. Hemostasis was achieved by TR band in the radial artery. she tolerated the procedure well and was transferred back to the hospital room. Hemodynamic Data: LV: 159/9, 19 AO: 159/92 (121) Coronary angiography: This is a left-dominant circulation. Left Main: This arises from the left coronary cusp. It bifurcates into left anterior descending and circumflex vessels. This is angiographically normal. Left anterior descending: Mild disease is noted in the mid segment of the LAD. The rest of the LAD is free of disease. Circumflex: This is a dominant vessel. This is angiographically normal. Right coronary artery: There was inability to engage the right coronary artery and the origin of the artery was not apparent on nonselective aortic root injections. 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 Impression/Findings: Mild disease in the LAD. 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 Mildly to moderately elevated left filling pressures. No aortic stenosis. Plan: Aspirin 81 mg daily. Statin therapy. The patient will be scheduled for cardiac catheterization to be performed from the femoral access given limitations of radial access due to spasm. Further recommendations per inpatient Cardiology service. Tino Gilmore MD Assessment/Plan Juan Kong is a 34 y.o. White female with expanding R groin hematoma s/p cardiac catheterization procedure OR for class 1 R groin hematoma evacuation Further plans pending per OR findings Miles Ramos MD General Surgery PGY-5 [1] No past medical history on file. [2] No past surgical history on file. [3] Allergies Allergen Reactions Codeine Nausea And Vomiting Nsaids (Non-Steroidal Anti-Inflammatory Drug) GI intolerance Adhesive Rash [4] Medications Prior to Admission Medication Sig Dispense Refill Last Dose/Taking acetaminophen (Tylenol) 325 mg tablet Take 650 mg by mouth every 4 (four) hours if needed for mild pain (1-3 pain score). ALBUTEROL INHL Inhale 90 mcg every 6 (six) hours if needed (SOB or wheezing). dexAMETHasone (Decadron) 2 mg tablet Take 3 mg by mouth in the morning. ergocalciferol (Vitamin D-2) 1.25 MG (55116 Units) capsule Take 50,000 Units by mouth 1 (one) time per week. escitalopram (Lexapro) 20 mg tablet Take 20 mg by mouth in the morning. fentaNYL (Duragesic) 12 mcg/hr Place 1 patch on the skin every 3rd (third) day. Takes 12 mcg and 25mcg together every 3 days fentaNYL (Duragesic) 25 mcg/hr Place 1 patch on the skin every 3rd (third) day. HYDROcodone-acetaminophen (Marcellus) 5-325 mg tablet Take 2 tablets by mouth every 4 (four) hours if needed for moderate-severe pain (4-10 pain score). hydrocortisone (Cortef) 10 mg tablet Take 10 mg by mouth in the morning. hydrOXYzine HCL (Atarax) 25 mg tablet Take 50 mg by mouth if needed at bedtime. levothyroxine (Synthroid, Levoxyl) 75 mcg tablet Take 75 mcg by mouth before breakfast. linaCLOtide (Linzess) 290 mcg capsule Take 290 mcg by mouth before breakfast. Do not crush or chew. liothyronine (Cytomel) 5 mcg tablet Take 5 mcg by mouth in the morning. metFORMIN, OSM, (Fortamet) 500 mg 24 hr tablet Take 500 mg by mouth with breakfast and with eveningmeal. Do not crush, chew, or split. methocarbamol (Robaxin) 500 mg tablet Take 750 mg by mouth four times daily. mirtazapine (Remeron) 30 mg tablet Take 45 mg by mouth at bedtime. omeprazole (PriLOSEC) [address] capsule Take 40 mg by mouth before breakfast and before evening meal. Do not crush or chew. prochlorperazine (Compazine) 10 mg tablet Take 10 mg by mouth every 6 (six) hours if needed for nausea or vomiting. prucalopride 2 mg tablet Take 2 mg by mouth in the morning. sucralfate (Carafate) 1 gram tablet Take 1 g by mouth before breakfast, before lunch, before evening meal, and at bedtime. topiramate (Topamax) 100 mg tablet Take 100 mg by mouth two times daily. traMADol (Ultram) 50 mg tablet Take 50 mg by mouth every 6 (six) hours if needed. traZODone (Desyrel) 100 mg tablet Take 100 mg by mouth at bedtime. [DISCONTINUED] metoclopramide (Reglan) 10 mg tablet Take 10 mg by mouth if needed each day (nausea and vomiting). [5] No family history on file. Cosigned by Jose Angel Fox MD at 11/02/2024 8:42 PM EDT Associated attestation - Jose Angel Fox MD - 11/02/2024 8:42 PM EDT Patient examined and chart reviewed. Discussed with attending Dr. Orr. Patient has a large right groin hematoma status post cardiac catheterization. Currently the area is tense with an extensiveamount of blood being present. Will plan emergent OR evacuation and repair of pseudoaneurysm. * Maria D Bailey MD - 11/01/2024 4:26 PM EDT Images from the original note were not included. Cardiology Progress Note Reason for Consult: CP Subjective Underwent coronary angiogram yesterday but only left coronary artery was engaged. Repeat cath todayto assess the RCA. Patient reports intermittent chest pain and lightheadedness upon standing up. Denies shortness of breath. She is getting TPN at bedside. HPI: Juan Kong is a 34 y.o. female w/ PMHx of HTN, HLD, asthma, RICHAR, hypothyroidism, GERD, IBS, fibromyalgia, T2DM, median arcuate ligament syndrome s/p celiac plexus block and MALS release, morbid obesity s/p sleeve gastrectomy, extensive chronic adhesions and recurrent obstructions, and gastroparesis s/p multiple infusions and J-tube C/B infection and removal who came as a direct admission from [facility] due to chest pain. Patient states that the pain started after her qD infusions for gastroparesis and characterizes as sharp and radiating to her left arm, 10 out of 10. She states that the CP was associated with dizziness, shortness of breath, nausea, and vomiting. At this time, she states that she has been receivingLR infusions w/ Benadryl and Compazine daily for the past month, and at the beginning of when she was receiving it yesterday she started feeling severe chest pain. HST trending from 337 to 129 down to 61, and BNP 77. ECG shows NSR with HR 83, and some PVCs. Repeat ECG ordered, and patient has never had a cath. Previous echocardiogram showed normal results and was completed due to concern for endocarditis due to sepsis, however patient does not remember the exact results. Patient symptoms have improved and are now a 5 out of 10, with sporadic sharp pains but general dull pain. Patient's pain is reproducible with palpitation in the left axilla, and left chest region. Cardiology ROS: Review of Systems Constitutional: Negative for activity change, appetite change, chills, diaphoresis and fever. HENT: Negative for congestion, hearing loss, sinus pressure and sore throat. Eyes: Negative for photophobia and pain. Respiratory: Negative for apnea, cough, choking, shortness of breath and wheezing. Cardiovascular: Positive for chest pain. Negative for palpitations and leg swelling. Gastrointestinal: Negative for abdominal distention, abdominal pain, constipation, diarrhea, nauseaand vomiting. Genitourinary: Negative for difficulty urinating and dysuria. Musculoskeletal: Negative for arthralgias, gait problem and myalgias. Neurological: Negative for dizziness, tremors, weakness and headaches. Psychiatric/Behavioral: Negative for agitation and confusion. The patient is not nervous/anxious. Past Medical History She has no past medical history on file. Surgical History She has no past surgical history on file. Social History She reports that she has never smoked. She has never used smokeless tobacco. No history on file foralcohol use and drug use. Family History Family History[1] Allergies Codeine, Nsaids (non-steroidal anti-inflammatory drug), and Adhesive Medications Current Outpatient Medications Medication Instructions acetaminophen (TYLENOL) 650 mg, oral, Every 4 hours PRN ALBUTEROL INHL 90 mcg, inhalation, Every 6 hours PRN dexAMETHasone (DECADRON) 3 mg, oral, Daily ergocalciferol (VITAMIN D-2) 50,000 Units, oral, Weekly escitalopram (LEXAPRO) 20 mg, oral, Daily fentaNYL (Duragesic) 12 mcg/hr 1 patch, transdermal, Every 72 hours, Takes 12 mcg and 25 mcg together every 3 days fentaNYL (Duragesic) 25 mcg/hr 1 patch, transdermal, Every 72 hours HYDROcodone-acetaminophen (Marcellus) 5-325 mg tablet 2 tablets, oral, Every 4 hours PRN hydrocortisone (CORTEF) 10 mg, oral, Daily hydrOXYzine HCL (ATARAX) 50 mg, oral, Nightly PRN levothyroxine (SYNTHROID, LEVOXYL) 75 mcg, oral, Daily before breakfast linaCLOtide (LINZESS) 290 mcg, oral, Daily before breakfast, Do not crush or chew. liothyronine (CYTOMEL) 5 mcg, oral, Daily metFORMIN (OSM) (FORTAMET) 500 mg, oral, 2 times daily with meals, Do not crush, chew, or split. methocarbamol (ROBAXIN) 750 mg, oral, 4 times daily metoclopramide (REGLAN) 10 mg, oral, Daily PRN mirtazapine (REMERON) 45 mg, oral, Nightly omeprazole (PRILOSEC) 40 mg, oral, 2 times daily before meals, Do not crush or chew. prochlorperazine (COMPAZINE) 10 mg, oral, Every 6 hours PRN prucalopride 2 mg, oral, Daily sucralfate (CARAFATE) 1 g, oral, 4 times daily before meals and nightly topiramate (TOPAMAX) 100 mg, oral, 2 times daily traMADol (ULTRAM) 50 mg, oral, Every 6 hours PRN traZODone (DESYREL) 100 mg, oral, Nightly Prescriptions Prior to Admission[2] Last Recorded Vitals Patient Vitals for the past 24 hrs: BP Temp Temp src Pulse Resp SpO2 Weight 11/01/24 1615 114/68 -- -- 70 -- 98 % -- 11/01/24 1600 114/73 -- -- 81 -- 100 % -- 11/01/24 1545 113/67 -- -- 72 -- 98 % -- 11/01/24 1530 117/71 -- -- 77 -- 97 % -- 11/01/24 1515 (!) 127/95 -- -- 71 -- 98 % -- 11/01/24 1500 131/65 -- -- 77 -- 100 % -- 11/01/24 1445 116/71 -- -- 84 -- -- -- 11/01/24 1430 116/61 -- -- 82 -- -- -- 11/01/24 1415 (!) 120/98 -- -- 76 11 100 % -- 11/01/24 1400 121/77 -- -- 75 16 100 % -- 11/01/24 1345 125/75 -- -- 75 16 100 % -- 11/01/24 1331 120/72 -- -- 74 16 100 % -- 11/01/24 1223 -- -- -- -- -- 98 % -- 11/01/24 1222 113/58 -- -- 78 16 98 % -- 11/01/24 1127 111/71 36.4 ??C (97.6 ??F) Temporal 82 16 97 % -- 11/01/24 0756 111/73 36.1 ??C (97 ??F) Temporal 86 14 100 % -- 11/01/24 0500 -- -- -- -- -- -- 80.9 kg (178 lb 6.4 oz) 11/01/24 0400 (!) 94/42 -- -- 69 12 97 % -- 11/01/24 0300 (!) 102/47 -- -- 67 (!) 6 98 % -- 11/01/24 0200 103/54 -- -- 87 (!) 9 98 % -- 11/01/24 0100 104/56 -- -- 78 11 97 % -- 11/01/24 0000 (!) 96/49 -- -- 82 10 98 % -- 10/31/24 2300 120/65 -- -- 103 18 99 % -- 10/31/24 2200 93/56 -- -- 74 11 97 % -- 10/31/24 2130 115/54 -- -- 94 15 98 % -- 10/31/24 2100 109/66 -- -- 102 10 98 % -- 10/31/245 121/80 -- -- 100 19 98 % -- 10/31/242038 106/83 -- -- 106 21 99 % -- 10/31/242014 (!) 126/93 -- -- 88 20 100 % -- 10/31/241999 112/84 -- -- 88 21 96 % -- 10/31/241954 110/61 -- -- 70 12 98 % -- 10/31/24 193 118/84 -- -- 78 16 100 % -- 10/31/241840 -- -- -- -- -- 97 % -- 10/31/241840 123/63 -- -- 66 16 98 % -- Physical Examination: Physical Exam Constitutional: General: She is not in acute distress. Appearance: Normal appearance. She is normal weight. She is not ill-appearing. HENT: Head: Normocephalic and atraumatic. Nose: No congestion or rhinorrhea. Mouth/Throat: Mouth: Mucous membranes are moist. Eyes: General: No scleral icterus. Extraocular Movements: Extraocular movements intact. Conjunctiva/sclera: Conjunctivae normal. Pupils: Pupils are equal, round, and reactive to light. Cardiovascular: Rate and Rhythm: Normal rate and regular rhythm. Pulses: Normal pulses. Heart sounds: Normal heart sounds. No murmur heard. Pulmonary: Effort: Pulmonary effort is normal. No respiratory distress. Breath sounds: Normal breath sounds. No wheezing. Abdominal: General: Abdomen is flat. Bowel sounds are normal. There is no distension. Palpations: Abdomen is soft. Tenderness: There is no abdominal tenderness. There is no guarding. Musculoskeletal: General: No swelling. Right lower leg: No edema. Left lower leg: No edema. Skin: General: Skin is warm. Coloration: Skin is not jaundiced or pale. Neurological: General: No focal deficit present. Mental Status: She is alert and oriented to person, place, and time. Mental status is at baseline. Cranial Nerves: No cranial nerve deficit. Motor: No weakness. Psychiatric: Mood and Affect: Mood normal. Behavior: Behavior normal. Thought Content: Thought content normal. Judgment: Judgment normal. Relevant Lab Results Encounter Date: 10/30/24 ECG 12 lead Result Value Ventricular Rate 76 Atrial Rate 76 MA Interval 132 QRS DURATION 84 QT Interval 444 QTC CALCULATION(BAZETT) 499 P [place] 72 R-[place] 50 T Wave [place] 89 Impression Normal sinus rhythm Prolonged QT Abnormal ECG When compared with ECG of 31-OCT-2024 08:43, No significant change was found No results found for: CKTOTAL , CKMB , CKMBINDEX , TROPONINI Limited Echo (TTE) w/wo Limited Doppler, Color Flow, Imaging Agent, Strain, 3D, Bubble Study Result Date: 10/31/2024 1 1 [facility] Heart Station [address] [place] [address] [phone] (fax) Echocardiogram-[facility] Name: JUAN KONG Study Date: 10/31/2024 11:16 AM B/P: 106 mmHg/67 mmHg HR: 70 bpm Date of : 1990 [facility] Age: 34 year(s) Patient Room: 3187 Weight: 181 lb. Gender: Female Patient Status: InPt BSA: 1.92 m2 Indication: Chest Pain, gartroparesis, limited echo to assess CP Examination: Limited Echo, Color flow imaging, Lumason Contrast Image Quality: Fair Patient Consent: Procedure explained to patient Exam Details Contrast: I.V. dose of Lumason Conclusions Left Ventricle: Global left vent ricular systolic function is at lower limits of normal. The calculated Biplane EF is 53 %. EF rangeis estimated at 50 % -55 %. Left ventricular wall thickness is normal. Regional wall motion abnormalities (see diagram). Right Ventricle: The right ventricle is normal in size. Normal right ventricular systolic function. Unable to assess right sided pressures due to lack of measurable tricuspid regurgitation. Left Atrium: The left atrium is normal in size. Pericardium: There is a minimal pericardial effusion. Overall Conclusions: Due to suboptimal imaging Lumason contrast was administered for opacification and better delineation of endocardial borders. Measurements Left Ventricle Label Value Normal Value LVDd, 2D 4.71 cm (3.9cm - 5.3cm) LVDs, 2D 2.96 cm (2.1cm - 4cm) IVSd, 2D 0.7 cm (0.6cm - 1.1cm) LVPWd, 2D 0.83 cm (0.6cm - 0.9cm) LVEF, BP 53 % (55% - 65%) LV Mass, 2D ASE 115.82 g LV Mass Index, 2D ASE 60.3 g/m?? (44g/m?? - 88.4g/m??) RWT, MM 0.35 (0 - 0.42) LVSVI, 2D 35.9 ml/m2 Aorta Label Value Normal Value AoRoot, 2D 2.5 cm (1.4cm - 3.8cm) Valvular Assessment LVOT 0.7 - 1.1 m/sec Aortic Valve 1.0 - 1.7 m/sec Mitral Valve 0.6 - 1.3 m/sec Tricuspid Valve 0.3 - 0.7 m/sec Pulmonic Valve 0.6 - 0.9 m/sec Regurgitation No No No No Findings Left Ventricle: Global left ventricular systolic function is at lower limits of normal. The calculated Biplane EF is 53 %. EF range is estimatedat 50 % -55 %. Left ventricular wall thickness is normal. Regional wall motion abnormalities (see diagram). The basal inferolateral, mid anterior, mid anteroseptal, mid inferoseptal, mid inferolateral and apical lateral left ventricular wall segments are hypokinetic. All remaining scored left ventricular wall segments are with no wall motion abnormalities. Right Ventricle: The right ventricle is normal in size. Normal right ventricular systolic function. Unable to assess right sided pressures due to lack of measurable tricuspid regurgitation. Left Atrium: The left atrium is normal in size. Right Atrium: The right atrium is normal in size. Mitral Valve: The mitral valve is normal in mobilityand thickness. No mitral regurgitation. Aortic Valve: The aortic valve is normal. No aortic valve regurgitation. Tricuspid Valve: Normal tricuspid valve. No tricuspid regurgitation. Pulmonic Valve: Normal pulmonary valve. No pulmonary regurgitation. Aorta: The aortic root exhibits normal size. Great Vessels: IVC: The IVC is not visualized. Pericardium: There is a minimal pericardial effusion. Procedure Staff Reading Group: [facility] Finisher [employer]aster[employer]: DAVID Kearney, RDCS Ordering Physician: [place] RITTER Wall Motion Scores -1 - hyperkinesia, 0 - not evaluated, 1 - normal, 2 - hypokinesia, 3 - akinesia, 4 - dyskinesia No nuclear medicine results found for the past 12 months Relevant Imaging Results Cardiac catheterization PROCEDURE PHYSICIAN: Mitchell Agustin MD Clinical Presentation: 34 y.o. Female with history of hypertension, hyperlipidemia, asthma, RICHAR, hypothyroidism, GERD, IBS, DM2, median arcuate ligament syndrome s/p celiac plexus block and then MALS release, morbid obesity s/p sleeve gastrectomy, extensive chronic adhesions and recurrent obstructions, gastroparesis s/p J-tube and removal d/t infection, failure to thrive and now on TPN presents a direct admission from [facility] with chief complaint of chest pain. She is diagnosed with NSTEMI. She had coronary angiogram yesterday but it could not be completed due to radial artery vasospasm. She is now presenting for a repeat coronary angiogram with femoral access. Final Impression: 1) Coronary angiogram and IVUS demonstrate focal SCAD (Type 3 SCAD) in the mid LAD. Since there is good coronary artery blood flow and the SCAD is non-flow limiting, medical therapy is recommended Plan: 1) optimal med therapy for SCAD 2) Aspirin and plavix DAPT; can finish Plavix in 1 to 3 months and continue lifelong aspirin 81 mg daily 3) Lifelong beta-reece is recommended for prevention of recurrent SCAD Procedures Performed: coronary angiogram, IVUS LAD, conscious sedation 49 min, ultrasound guidance for vascular access Procedure Description: The patient was brought to the cardiac catheterization lab in a fasting state. Informed written consent was obtained. she was prepped and draped in usual sterile fashion over the bilateral groins. Time-out was performed. she was given Versed and fentanyl for sedation. 1% lidocaine was infiltrated over the right femoral artery. A 5-Iranian Terumo sheath was placed in right femoral artery. Limited femoral angiogram showed adequate placement in the right common femoral artery. Coronary angiogram was performed with a JL4 to engage the left main and a JR4 to engage the RCA. Coronary angiogram was performed in multiple orthogonal views. At this time, it was apparent that the mid LAD had intermediate stenosis. I decided to proceed with PCI. Heparin anticoagulation was used for this procedure. ACT was maintained at >250 seconds. A 5 Iranian Cordis XB 3.0 guide was engaged to the left main. I decided to proceed with IVUS. I then advanced a Runthrough wire to the distal left anterior descending. Next, I advanced a Clinithink IVUS catheter. IVUS imaging was performed and automated pullback was performed. Based on IVUS, we identified focal SCAD (type 3) with intramural hematoma. All catheters and wires were removed. The right femoral sheath will be removed once ACT is within range and manual pressure will be applied to obtain hemostasis. Specimens Removed: None Complications: None Coronary Angiogram: Left main: large trifurcating left main which is patent LAD: the LAD is a large vessel the mid segment of the LAD has a focal 40 to 50% stenosis. This area was further interrogated with IVUS. IVUS imaging showed evidence SCAD with intramural hematoma in a focal segment. Ramus: Patent LCX: normal; large and dominant left circumflex coronary artery RCA: small, nondominant vessel with diffuse tapering throughout the mid segment with very small caliber ECG 12 lead Normal sinus rhythm Prolonged QT Abnormal ECG When compared with ECG of 31-OCT-2024 08:43, No significant change was found Echocardiogram-[facility] Name: JUAN KONG Study Date: 10/31/2024 11:16 AM B/P: 106 mmHg/67 mmHg HR: 70 bpm Date of : 1990 Location: [facility] Height: 66 in. Age: 34 year(s) Patient Room : 3187 Weight: 181 lb. Gender: Female Patient Status: InPt BSA: 1.92 m2 Indication: Chest Pain, gartroparesis, limited echo to assess CP Examination: Limited Echo, Color flow imaging, Lumason Contrast Image Quality: Fair Patient Consent: Procedure explained to patient s p @ c3 Exam Details Contrast: I.V. dose of Lumason Conclusions Left Ventricle: Global left ventricular systolic function is at lower limits of normal. The calculated Biplane EF is 53 %. EF range is estimated at 50 % -55 %. Left ventricular wall thickness is normal. Regional wall motion abnormalities (see diagram). Right Ventricle: The right ventricle is normal in size. Normal right ventricular systolic function. Unable to assess right sided pressures due to lack of measurable tricuspid regurgitation. Left Atrium: The left atrium is normal in size. Pericardium: There is a minimal pericardial effusion. Overall Conclusions: Due to suboptimal imaging Lumason contrast was administered for opacification and better delineation of endocardial borders. 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, type III scad EKG shows NSR with HR 83 and some PVCs HST trend: 337-129-61 downtrending Cath on 11/01/2024: Coronary angiogram and IVUS demonstrate focal SCAD (Type 3 SCAD) in the mid LAD.Since there is good coronary artery blood flow and the SCAD is non-flow limiting, medical therapy is recommended T2DM Morbid obesity s/p sleeve gastrectomy IBS HTN HLD RICHAR GERD Hypothyroidism Asthma H/O median arcuate ligament syndrome s/p celiac plexus block and MALS release H/O extensive chronic adhesions and recurrent obstructions Gastroparesis s/p daily infusions and J-tube C/B infection and removal Fibromyalgia PLAN Coronary angiogram today showed focal scad type III in the mid LAD. Continue medical therapy with aspirin and Plavix for 1 to 3 months followed by lifelong aspirin therapy Monitor tonight and patient can discharge tomorrow if stable Rest of care per primary team Cardiology will continue following along This note was, at least in part, completed using a voice animal husbandry manager system. Every effort was made to ensure accuracy. However, inadvertent computerized animal husbandry manager errors may be present. Lisa Pena DO Internal Medicine Resident, PGY-2 [facility] 4:26 PM 11/01/24 Maria D Bailey MD PGY-5 Fire Crew Specialist [facility] Pager: [phone] [1] No family history on file. [2] Medications Prior to Admission Medication Sig Dispense Refill Last Dose/Taking acetaminophen (Tylenol) 325 mg tablet Take 650 mg by mouth every 4 (four) hours if needed for mild pain (1-3 pain score). ALBUTEROL INHL Inhale 90 mcg every 6 (six) hours if needed (SOB or wheezing). dexAMETHasone (Decadron) 2 mg tablet Take 3 mg by mouth in the morning. ergocalciferol (Vitamin D-2) 1.25 MG (06034 Units) capsule Take 50,000 Units by mouth 1 (one) time per week. escitalopram (Lexapro) 20 mg tablet Take 20 mg by mouth in the morning. fentaNYL (Duragesic) 12 mcg/hr Place 1 patch on the skin every 3rd (third) day. Takes 12 mcg and 25mcg together every 3 days fentaNYL (Duragesic) 25 mcg/hr Place 1 patch on the skin every 3rd (third) day. HYDROcodone-acetaminophen (Marcellus) 5-325 mg tablet Take 2 tablets by mouth every 4 (four) hours if needed for moderate-severe pain (4-10 pain score). hydrocortisone (Cortef) 10 mg tablet Take 10 mg by mouth in the morning. hydrOXYzine HCL (Atarax) 25 mg tablet Take 50 mg by mouth if needed at bedtime. levothyroxine (Synthroid, Levoxyl) 75 mcg tablet Take 75 mcg by mouth before breakfast. linaCLOtide (Linzess) 290 mcg capsule Take 290 mcg by mouth before breakfast. Do not crush or chew. liothyronine (Cytomel) 5 mcg tablet Take 5 mcg by mouth in the morning. metFORMIN, OSM, (Fortamet) 500 mg 24 hr tablet Take 500 mg by mouth with breakfast and with eveningmeal. Do not crush, chew, or split. methocarbamol (Robaxin) 500 mg tablet Take 750 [...] evening meal. Do not crush or chew. prochlorperazine (Compazine) 10 mg tablet Take 10 mg by mouth every 6 (six) hours if needed for nausea or vomiting. prucalopride 2 mg tablet Take 2 mg by mouth in the morning. sucralfate (Carafate) 1 gram tablet Take 1 g by mouth before breakfast, before lunch, before evening meal, and at bedtime. topiramate (Topamax) 100 mg tablet Take 100 mg by mouth two times daily. traMADol (Ultram) 50 mg tablet Take 50 mg by mouth every 6 (six) hours if needed. traZODone (Desyrel) 100 mg tablet Take 100 mg by mouth at bedtime. Cosigned by Katie Altamirano MD at 11/01/2024 4:32 PM EDT Associated attestation - Katie Altamirano MD - 11/01/2024 4:32 PM EDT By using the attestations below, the signing clinician agrees that I have read and verify that thedocumentation has been personally reviewed by me and ensure that the documentation accurately reflects the encounter. GC: I personally saw this patient on the day of the encounter, performed the paula portion(s) of the service and participated in the management and confirm the resident's documentation. Please note there may be an additional personal documentation from me. Additional Comments: Katie Altamirano MD, MPH, FACC, [facility] [place], [facility] Interventional Cardiology Pager Email: [email or web address] * Lisa Pena DO - 10/31/2024 7:49 AM EDTAssociated Order(s): IP CONSULT TO CARDIOLOGY Images from the original note were not included. Cardiology Consult Note Reason for Consult: CP HPI: Juan Kong is a 34 y.o. female w/ PMHx of HTN, HLD, asthma, RICHAR, hypothyroidism, GERD, IBS, fibromyalgia, T2DM, median arcuate ligament syndrome s/p celiac plexus block and MALS release, morbid obesity s/p sleeve gastrectomy, extensive chronic adhesions and recurrent obstructions, and gastroparesis s/p multiple infusions and J-tube C/B infection and removal who came as a direct admission from [facility] due to chest pain. Patient states that the pain started after her qD infusions for gastroparesis and characterizes as sharp and radiating to her left arm, 10 out of 10. She states that the CP was associated with dizziness, shortness of breath, nausea, and vomiting. At this time, she states that she has been receivingLR infusions w/ Benadryl and Compazine daily for the past month, and at the beginning of when she was receiving it yesterday she started feeling severe chest pain. HST trending from 337 to 129 down to 61, and BNP 77. ECG shows NSR with HR 83, and some PVCs. Repeat ECG ordered, and patient has never had a cath. Previous echocardiogram showed normal results and was completed due to concern for endocarditis due to sepsis, however patient does not remember the exact results. Patient symptoms have improved and are now a 5 out of 10, with sporadic sharp pains but general dull pain. Patient's pain is reproducible with palpitation in the left axilla, and left chest region. Cardiology ROS: Review of Systems Constitutional: Negative for activity change, appetite change, chills, diaphoresis and fever. HENT: Negative for congestion, hearing loss, sinus pressure and sore throat. Eyes: Negative for photophobia and pain. Respiratory: Negative for apnea, cough, choking, shortness of breath and wheezing. Cardiovascular: Positive for chest pain. Negative for palpitations and leg swelling. Gastrointestinal: Negative for abdominal distention, abdominal pain, constipation, diarrhea, nauseaand vomiting. Genitourinary: Negative for difficulty urinating and dysuria. Musculoskeletal: Negative for arthralgias, gait problem and myalgias. Neurological: Negative for dizziness, tremors, weakness and headaches. Psychiatric/Behavioral: Negative for agitation and confusion. The patient is not nervous/anxious. Past Medical History She has no past medical history on file. Surgical History She has no past surgical history on file. Social History She reports that she has never smoked. She has never used smokeless tobacco. No history on file foralcohol use and drug use. Family History Family History[1] Allergies Codeine, Nsaids (non-steroidal anti-inflammatory drug), and Adhesive Medications Current Outpatient Medications Medication Instructions acetaminophen (TYLENOL) 650 mg, oral, Every 4 hours PRN ALBUTEROL INHL 90 mcg, inhalation, Every 6 hours PRN dexAMETHasone (DECADRON) 3 mg, oral, Daily ergocalciferol (VITAMIN D-2) 50,000 Units, oral, Weekly escitalopram (LEXAPRO) 20 mg, oral, Daily fentaNYL (Duragesic) 12 mcg/hr 1 patch, transdermal, Every 72 hours, Takes 12 mcg and 25 mcg together every 3 days fentaNYL (Duragesic) 25 mcg/hr 1 patch, transdermal, Every 72 hours HYDROcodone-acetaminophen (Marcellus) 5-325 mg tablet 2 tablets, oral, Every 4 hours PRN hydrocortisone (CORTEF) 10 mg, oral, Daily hydrOXYzine HCL (ATARAX) 50 mg, oral, Nightly PRN levothyroxine (SYNTHROID, LEVOXYL) 75 mcg, oral, Daily before breakfast linaCLOtide (LINZESS) 290 mcg, oral, Daily before breakfast, Do not crush or chew. liothyronine (CYTOMEL) 5 mcg, oral, Daily metFORMIN (OSM) (FORTAMET) 500 mg, oral, 2 times daily with meals, Do not crush, chew, or split. methocarbamol (ROBAXIN) 750 mg, oral, 4 times daily metoclopramide (REGLAN) 10 mg, oral, Daily PRN mirtazapine (REMERON) 45 mg, oral, Nightly omeprazole (PRILOSEC) 40 mg, oral, 2 times daily before meals, Do not crush or chew. prochlorperazine (COMPAZINE) 10 mg, oral, Every 6 hours PRN prucalopride 2 mg, oral, Daily sucralfate (CARAFATE) 1 g, oral, 4 times daily before meals and nightly topiramate (TOPAMAX) 100 mg, oral, 2 times daily traMADol (ULTRAM) 50 mg, oral, Every 6 hours PRN traZODone (DESYREL) 100 mg, oral, Nightly Prescriptions Prior to Admission[2] Last Recorded Vitals Patient Vitals for the past 24 hrs: BP Temp Temp src Pulse Resp SpO2 Height Weight 10/31/24 0400 103/66 -- -- 72 10 97 % -- -- 10/31/24 0320 -- -- -- -- -- -- 1.676 m (5' 5.98 ) 82.1 kg (181 lb) 10/31/24 0000 101/67 -- -- 71 (!) 7 95 % -- -- 10/30/24 2200 102/58 -- -- 65 10 96 % -- -- 10/30/24 2000 99/50 36.1 ??C (97 ??F) Temporal 86 16 97 % -- -- 10/30/24 1855 -- -- -- -- -- -- -- 82.1 kg (181 lb) 10/30/24 1833 -- -- -- 68 14 98 % -- -- 10/30/24 1832 (!) 117/44 36.1 ??C (97 ??F) Temporal 72 19 98 % -- -- Physical Examination: Physical Exam Constitutional: General: She is not in acute distress. Appearance: Normal appearance. She is normal weight. She is not ill-appearing. HENT: Head: Normocephalic and atraumatic. Nose: No congestion or rhinorrhea. Mouth/Throat: Mouth: Mucous membranes are moist. Eyes: General: No scleral icterus. Extraocular Movements: Extraocular movements intact. Conjunctiva/sclera: Conjunctivae normal. Pupils: Pupils are equal, round, and reactive to light. Cardiovascular: Rate and Rhythm: Normal rate and regular rhythm. Pulses: Normal pulses. Heart sounds: Normal heart sounds. No murmur heard. Pulmonary: Effort: Pulmonary effort is normal. No respiratory distress. Breath sounds: Normal breath sounds. No wheezing. Abdominal: General: Abdomen is flat. Bowel sounds are normal. There is no distension. Palpations: Abdomen is soft. Tenderness: There is no abdominal tenderness. There is no guarding. Musculoskeletal: General: No swelling. Right lower leg: No edema. Left lower leg: No edema. Skin: General: Skin is warm. Coloration: Skin is not jaundiced or pale. Neurological: General: No focal deficit present. Mental Status: She is alert and oriented to person, place, and time. Mental status is at baseline. Cranial Nerves: No cranial nerve deficit. Motor: No weakness. Psychiatric: Mood and Affect: Mood normal. Behavior: Behavior normal. Thought Content: Thought content normal. Judgment: Judgment normal. Relevant Lab Results Encounter Date: 10/30/24 ECG 12 lead Result Value Ventricular Rate 83 Atrial Rate 83 MA Interval 144 QRS DURATION 88 QT Interval 422 QTC CALCULATION(BAZETT) 495 P [place] 62 R-[place] 19 T Wave [place] 56 Impression Sinus rhythm with sinus arrhythmia with occasional Premature ventricular complexes Prolonged QT Abnormal ECG No previous ECGs available No results found for: CKTOTAL , CKMB , CKMBINDEX , TROPONINI No echocardiogram results found for the past 12 months No nuclear medicine results found for the past 12 months Relevant Imaging Results ECG 12 lead Sinus rhythm with sinus arrhythmia with occasional Premature ventricular complexes Prolonged QT Abnormal ECG No previous ECGs available Echocardiogram-[facility] Name: JUAN KONG Study Date: 10/31/2024 11:16 AM B/P: 106 mmHg/67 mmHg HR: 70 bpm Date of : 1990 Location: [facility] Height: 66 in. Age: 34 year(s) Patient Room : 3187 Weight: 181 lb. Gender: Female Patient Status: InPt BSA: 1.92 m2 Indication: Chest Pain, gartroparesis, limited echo to assess CP Examination: Limited Echo, Color flow imaging, Lumason Contrast Image Quality: Fair Patient Consent: Procedure explained to patient s p @ c3 Exam Details Contrast: I.V. dose of Lumason Conclusions Left Ventricle: Global left ventricular systolic function is at lower limits of normal. The calculated Biplane EF is 53 %. EF range is estimated at 50 % -55 %. Left ventricular wall thickness is normal. Regional wall motion abnormalities (see diagram). Right Ventricle: The right ventricle is normal in size. Normal right ventricular systolic function. Unable to assess right sided pressures due to lack of measurable tricuspid regurgitation. Left Atrium: The left atrium is normal in size. Pericardium: There is a minimal pericardial effusion. Overall Conclusions: Due to suboptimal imaging Lumason contrast was administered for opacification and better delineation of endocardial borders. ASSESSMENT NSTEMI EKG shows NSR with HR 83 and some PVCs HST trend: 337-129-61 downtrending CP improving from 10 to 6 with intermittent sharp pains T2DM Morbid obesity s/p sleeve gastrectomy IBS HTN HLD RICHAR GERD Hypothyroidism Asthma H/O median arcuate ligament syndrome s/p celiac plexus block and MALS release H/O extensive chronic adhesions and recurrent obstructions Gastroparesis s/p daily infusions and J-tube C/B infection and removal Fibromyalgia PLAN Cardiac catheterization today; coronary angiography indicated given CP, elevated HsTrop with a riseand fall, and subtle anteroseptal T wave changes and wall motion abnormalities on echocardiogram Replete electrolytes with K above 4.0, and Mg above 2.0 Rest of care per primary team Cardiology will continue following along This note was, at least in part, completed using a voice animal husbandry manager system. Every effort was made to ensure accuracy. However, inadvertent computerized animal husbandry manager errors may be present. Lisa Pena DO Internal Medicine Resident, PGY-2 [facility] 7:50 AM 10/31/24 [1] No family history on file. [2] Medications Prior to Admission Medication Sig Dispense Refill Last Dose/Taking acetaminophen (Tylenol) 325 mg tablet Take 650 mg by mouth every 4 (four) hours if needed for mild pain (1-3 pain score). ALBUTEROL INHL Inhale 90 mcg every 6 (six) hours if needed (SOB or wheezing). dexAMETHasone (Decadron) 2 mg tablet Take 3 mg by mouth in the morning. ergocalciferol (Vitamin D-2) 1.25 MG (00298 Units) capsule Take 50,000 Units by mouth 1 (one) time per week. escitalopram (Lexapro) 20 mg tablet Take 20 mg by mouth in the morning. fentaNYL (Duragesic) 12 mcg/hr Place 1 patch on the skin every 3rd (third) day. Takes 12 mcg and 25mcg together every 3 days fentaNYL (Duragesic) 25 mcg/hr Place 1 patch on the skin every 3rd (third) day. HYDROcodone-acetaminophen (Marcellus) 5-325 mg tablet Take 2 tablets by mouth every 4 (four) hours if needed for moderate-severe pain (4-10 pain score). hydrocortisone (Cortef) 10 mg tablet Take 10 mg by mouth in the morning. hydrOXYzine HCL (Atarax) 25 mg tablet Take 50 mg by mouth if needed at bedtime. levothyroxine (Synthroid, Levoxyl) 75 mcg tablet Take 75 mcg by mouth before breakfast. linaCLOtide (Linzess) 290 mcg capsule Take 290 mcg by mouth before breakfast. Do not crush or chew. liothyronine (Cytomel) 5 mcg tablet Take 5 mcg by mouth in the morning. metFORMIN, OSM, (Fortamet) 500 mg 24 hr tablet Take 500 mg by mouth with breakfast and with eveningmeal. Do not crush, chew, or split. methocarbamol (Robaxin) 500 mg tablet Take 750 [...] evening meal. Do not crush or chew. prochlorperazine (Compazine) 10 mg tablet Take 10 mg by mouth every 6 (six) hours if needed for nausea or vomiting. prucalopride 2 mg tablet Take 2 mg by mouth in the morning. sucralfate (Carafate) 1 gram tablet Take 1 g by mouth before breakfast, before lunch, before evening meal, and at bedtime. topiramate (Topamax) 100 mg tablet Take 100 mg by mouth two times daily. traMADol (Ultram) 50 mg tablet Take 50 mg by mouth every 6 (six) hours if needed. traZODone (Desyrel) 100 mg tablet Take 100 mg by mouth at bedtime. Cosigned by Katie Altamirano MD at 10/31/2024 1:34 PM EDT Associated attestation - Katie Altamirano MD - 10/31/2024 1:34 PM EDT By using the attestations below, the signing clinician agrees that I have read and verify that thedocumentation has been personally reviewed by me and ensure that the documentation accurately reflects the encounter. GC: I personally saw this patient on the day of the encounter, performed the paula portion(s) of the service and participated in the management and confirm the resident's documentation. Please note there may be an additional personal documentation from me. Additional Comments: Despite her young age, she has multiple risk factors for atherosclerotic coronary artery disease. In addition, her troponin showed rise and fall. Her EKG shows subtle anteroseptal T wave changes. Her echocardiogram shows an ejection fraction that is low normal with wall motion abnormalities. As such, her presentation would be considered a Type I ID/NSTEMI. This may or may not have been related to coronary vasospasm caused by the IV Compazine. Continue IV heparin drip. Invasive coronary angiography is indicated; will adjust pharmacological therapy depending on results. Treatment cardiac morbidities as clinically appropriate Katie Altamirano MD, MPH, [facility], [facility], [facility] Interventional Cardiology Pager Email: [email or web address] documented in this encounter Nursing Notes * Patricia Butt RN - 11/07/2024 5:05 PM EDT AVS Reviewed with patient. Patient verbalized understanding, IV removed. Patient offered wheelchairand declined. Patient ambulated by self without incident at 1705. * Deepika Matos RN - 11/07/2024 4:54 PM EDT Patient Name: Juan Kong : 1990 Primary Care Physician: Thomas Alas MD Admission Date: 10/30/2024 RAPID RESPONSE TEAM ICU TRANSFER FOLLOW-UP NOTE SUBJECTIVE / OBJECTIVE: Follow-up for previous transfer out of the ICU notification for 11/06 at 1325. ASSESSMENT / INTERVENTIONS: Recent Vital Signs: Vitals: 11/07/24 0721 11/07/24 1201 11/07/24 1335 11/07/24 1609 BP: (!) 114/45 123/63 (!) 117/49 121/61 BP Location: Right arm Right arm Patient Position: Sitting Sitting Pulse: 82 79 Resp: 12 12 Temp: 36.3 ??C (97.4 ??F) 36.4 ??C (97.5 ??F) TempSrc: Temporal Temporal SpO2: 97% 100% Weight: Height: Latest Labs: Lab Results Component Value Date WBC 4.21 11/07/2024 WBC 3.50 (L) 11/06/2024 HGB 9.0 (L) 11/07/2024 HGB 8.8 (L) 11/06/2024 HCT 26.9 (L) 11/07/2024 HCT 26.6 (L) 11/06/2024 MCV 89.4 11/07/2024 MCV 89.0 11/06/2024 PLT 206 11/07/2024 PLT 185 11/06/2024 NEUTROABS 1.49 (L) 11/06/2024 NEUTROABS 1.91 10/30/2024 Lab Results Component Value Date GLUCOSE 87 11/07/2024 GLUCOSE 85 11/06/2024 CALCIUM 8.3 (L) 11/07/2024 CALCIUM 8.4 (L) 11/06/2024 NA 139 11/07/2024 NA 139 11/06/2024 K 3.9 11/07/2024 K 3.9 11/06/2024 CO2 28 11/07/2024 CO2 27 11/06/2024 CL 105 11/07/2024 CL 105 11/06/2024 BUN 14 11/07/2024 BUN 12 11/06/2024 CREATININE 0.52 (L) 11/07/2024 CREATININE 0.61 11/06/2024 EGFR 124.2 11/07/2024 EGFR 119.5 11/06/2024 BCR 26.9 11/07/2024 BCR 19.7 11/06/2024 Lab Results Component Value Date MG 2.1 11/07/2024 MG 1.9 11/06/2024 Lab Results Component Value Date PHOS 4.7 11/07/2024 PHOS 4.7 11/06/2024 Lab Results Component Value Date ALT 7 10/30/2024 ALT 10 08/16/2024 AST 19 10/30/2024 AST 21 08/16/2024 ALKPHOS 45 10/30/2024 ALKPHOS 73 08/16/2024 BILITOT 0.2 (L) 10/30/2024 BILITOT 0.4 08/16/2024 Lab Results Component Value Date INR 1.17 (H) 11/03/2024 INR 1.15 (H) 10/30/2024 Follow-up: Patient is medically cleared for discharge. If emergent concerns arise call rapid response. Deepika Matos RN Rapid Response Team Nurse [phone] 11/07/2024 4:54 PM * Suleiman Borges RN - 11/07/2024 12:52 AM EDT Patient Name: Juan Kong : 1990 Primary Care Physician: Thomas Alas MD Admission Date: 10/30/2024 RAPID RESPONSE TEAM ICU TRANSFER FOLLOW-UP NOTE SUBJECTIVE / OBJECTIVE: Follow-up for previous transfer out of the ICU notification for 11/06 at 1325. ASSESSMENT / INTERVENTIONS: Recent Vital Signs: Vitals: 11/06/24 1619 11/06/24 2008 11/06/24 2147 11/07/24 0000 BP: 94/70 124/57 117/51 (!) 109/47 BP Location: Left arm Right arm Patient Position: Sitting Lying Pulse: 79 84 79 Resp: 13 13 13 Temp: 36.1 ??C (97 ??F) 36.6 ??C (97.9 ??F) TempSrc: Temporal Temporal SpO2: 97% 100% 96% Weight: Height: Latest Labs: Lab Results Component Value Date WBC 3.50 (L) 11/06/2024 WBC 3.54 (L) 11/05/2024 HGB 8.8 (L) 11/06/2024 HGB 9.4 (L) 11/05/2024 HCT 26.6 (L) 11/06/2024 HCT 27.5 (L) 11/05/2024 MCV 89.0 11/06/2024 MCV 87.6 11/05/2024 PLT 185 11/06/2024 PLT 177 11/05/2024 NEUTROABS 1.49 (L) 11/06/2024 NEUTROABS 1.91 10/30/2024 Lab Results Component Value Date GLUCOSE 85 11/06/2024 GLUCOSE 120 (H) 11/05/2024 CALCIUM 8.4 (L) 11/06/2024 CALCIUM 8.0 (L) 11/05/2024 NA 139 11/06/2024 NA 139 11/05/2024 K 3.9 11/06/2024 K 3.6 11/05/2024 CO2 27 11/06/2024 CO2 28 11/05/2024 CL 105 11/06/2024 CL 107 11/05/2024 BUN 12 11/06/2024 BUN 11 11/05/2024 CREATININE 0.61 11/06/2024 CREATININE 0.48 (L) 11/05/2024 EGFR 119.5 11/06/2024 EGFR 126.6 11/05/2024 BCR 19.7 11/06/2024 BCR 22.9 11/05/2024 Lab Results Component Value Date MG 1.9 11/06/2024 MG 1.9 11/05/2024 Lab Results Component Value Date PHOS 4.7 11/06/2024 PHOS 4.0 11/05/2024 Lab Results Component Value Date ALT 7 10/30/2024 ALT 10 08/16/2024 AST 19 10/30/2024 AST 21 08/16/2024 ALKPHOS 45 10/30/2024 ALKPHOS 73 08/16/2024 BILITOT 0.2 (L) 10/30/2024 BILITOT 0.4 08/16/2024 Lab Results Component Value Date INR 1.17 (H) 11/03/2024 INR 1.15 (H) 10/30/2024 Follow-up: Patient seen resting in bed. Primary RN consulted for follow up. The patient's labs and vitals are stable at this time. The primary RN voiced no concerns at this time. The bid writer urged theprimary RN to call the rapid team if any concerns arise overnight. Suleiman Borges RN Rapid Response Team Nurse [phone] 11/07/2024 12:52 AM * Fern Snider RN - 11/02/2024 11:55 PM EDT Patient asked me to call Roddy and give him and update given information regarding her stay in the recovery room and Her transfer to the SICU * Fern Snider RN - 11/02/2024 11:15 PM EDT Report called to Misha Hand off report given and recovery course discussed Such as pulse on the right leg Pain level , nausea and comfort. * Fern Snider RN - 11/02/2024 10:14 PM EDT Received patient and report from the OR patient placed on monitor . Patient arrived from the OR on a bed * Nathalie Hurd RN - 11/02/2024 8:34 PM EDT Bedside report given to DEE High from [facility] belle Sidhu RN. laborer aquatic life RN presented site to bedside RN. Bedside RN visualized site and palpated site to ensure there was no hematoma or bruising, and femoral site appears flat. Both bedside RN and asphalt plant laborer RN mutually agreed that the site presents normal. laborer aquatic life RN and bedside RN either palpated or used a doppler to assess pulses on the patient. * Alyce Ortega RN - 11/02/2024 8:30 PM EDT Pt brought to PRE-OP/pacu from asphalt plant laborer. Dr Whitlock holding pressure on right groin site. Pt on monitor. Report obtained. * Nathalie Hurd RN - 11/02/2024 8:13 PM EDT Report given to Thao FRUIT OR NUT FARMWORKER, RN from [facility] Any medications or safety alerts were reviewed. Any pending diagnostics and notifications were alsoreviewed, as well as any safety concerns or issues, abnormal labs, abnormal imagining, and abnormalassessment findings. Questions were answered. Patient being transferred to pre op for vascular surgery to evacuate groin hematoma. Patients was notified of her care plan per her request. * Nathalie Hurd RN - 11/02/2024 6:[address] Collins was called again re: hematoma that is not stable and very firm to touch. Pressure has been held over site for [address] Collins [address] Gilmore will be in to see and evaluatepatient. Pt c/o groin pain and leg pain and also back pain. Vital signs stable at this time at HR 86 and BP 100/74. Pulses palpable in right foot and unchanged. * Olga Loja RN - 11/01/2024 5:14 PM EDT Bedside report given to DEE Gomez from [facility]. laborer aquatic life RN presented site to bedside RN. Bedside RN visualized site and palpated site to ensure there was no hematoma or bruising, and femoral site appears flat. Both bedside RN and asphalt plant laborer RN mutually agreed that the site presents normal. laborer aquatic life RN and bedside RN either palpated or used a doppler to assess pulses on the patient. * Olga Loja RN - 11/01/2024 4:59 PM EDT Report given to DEE Gomez from [facility] Any medications or safety alerts were reviewed. Any pending diagnostics and notifications were alsoreviewed, as well as any safety concerns or issues, abnormal labs, abnormal imagining, and abnormalassessment findings. Questions were answered. documented in this encounter Miscellaneous Notes * Treatment Plan - Urbano Santos MD - 11/07/2024 5:10 PM EDT Assessment and plan reviewed and agreed * Care Plan - May Emery RN - 11/07/2024 1:32 PM EDT Product Specialist talked with patient about discharge planning, Product Specialist did [facility] to [facility] for [facility] due to patient discharging with [facility]. Patient stated she [facility] but her insurance is no longer accepting by them. Patient was agreeable to a mass referral to be set out to see who is accepting and who takes her insurance. Product Specialist notified SW. * Care Plan - Patricia Butt RN - 11/07/2024 11:05 AM EDT The patient is Moderately Stable - Low risk of patient condition declining or worsening The patient's goals for the shift include Pain control The clinical goals for the shift include pain control VS Over the shift, the patient did not make progress toward the following goals. Problem: Pain - Adult Goal: Verbalizes/displays adequate comfort level or baseline comfort level Outcome: Adequate for Discharge Flowsheets (Taken 11/07/2024720) Verbalizes/displays adequate comfort level or baseline comfort level: Encourage patient to monitor pain and request assistance Problem: Safety - Adult Goal: Free from fall injury Outcome: Adequate for Discharge Flowsheets (Taken 11/07/2024720) Free from fall injury: Assess patient frequently for physical needs Problem: Discharge Planning Goal: Discharge to home or other facility with appropriate resources Outcome: Adequate for Discharge Flowsheets (Taken 11/07/2024720) Discharge to home or other facility with appropriate resources: Identify barriers to discharge withpatient and caregiver Problem: Chronic Conditions and Co-morbidities Goal: Patient's chronic conditions and co-morbidity symptoms are monitored and maintained or improved Outcome: Adequate for Discharge Flowsheets (Taken 11/07/2024720) Care Plan - Patient's Chronic Conditions and Co-Morbidity Symptoms are Monitored and Maintained or Improved: Monitor and assess patient's chronic conditions and comorbid symptoms for stability, deterioration, or improvement Problem: Skin/Tissue Integrity - Adult Goal: Skin integrity remains intact Outcome: Adequate for Discharge Flowsheets (Taken 11/07/2024720) Skin integrity remains intact: Monitor for areas of redness and/or skin breakdown Goal: Oral mucous membranes remain intact Outcome: Adequate for Discharge Flowsheets (Taken 11/07/2024720) Oral mucous membranes remain intact: Assess oral mucosa and hygiene practices Goal: Incisions, wounds, or drain sites healing without S/S of infection Outcome: Adequate for Discharge Flowsheets (Taken 11/07/2024720) Incisions, wounds, or drain sites healing without sign and symptoms of infection: ADMISSION and DAILY: Assess and document risk factors for pressure ulcer development Problem: Knowledge Deficit Goal: Patient/family/caregiver demonstrates understanding of disease process, treatment plan, medications, and discharge instructions Outcome: Adequate for Discharge Problem: Potential for Compromised Skin Integrity Goal: Skin Integrity is Maintained or Improved Outcome: Adequate for Discharge Goal: Nutritional status is improving Outcome: Adequate for Discharge Problem: Neurosensory - Adult Goal: Achieves stable or improved neurological status Outcome: Adequate for Discharge Flowsheets (Taken 11/07/2024720) Achieves stable or improved neurological status: Assess for and report changes in neurological status Goal: Absence of seizures Outcome: Adequate for Discharge Flowsheets (Taken 11/07/2024720) Absence of seizures: Monitor for seizure activity. If seizure occurs, document type and location ofmovements and any associated apnea Goal: Remains free of injury related to seizures activity Outcome: Adequate for Discharge Flowsheets (Taken 11/07/2024720) Remains free of injury related to seizure activity: Maintain airway, patient safety and administer oxygen as ordered Goal: Achieves maximal functionality and self care Outcome: Adequate for Discharge Flowsheets (Taken 11/07/2024720) Achieves maximal functionality and self care: Monitor swallowing and airway patency with patient fatigue and changes in neurological status Problem: Respiratory - Adult Goal: Achieves optimal ventilation and oxygenation Outcome: Adequate for Discharge Flowsheets (Taken 11/07/2024720) Achieves optimal ventilation and oxygenation: Assess for changes in respiratory status Problem: Cardiovascular - Adult Goal: Maintains optimal cardiac output and hemodynamic stability Outcome: Adequate for Discharge Flowsheets (Taken 11/07/2024720) Maintains optimal cardiac output and hemodynamic stability: Monitor blood pressure and heart rate Goal: Absence of cardiac dysrhythmias or at baseline Outcome: Adequate for Discharge Flowsheets (Taken 11/07/2024720) Absence of cardiac dysrhythmias or at baseline: Monitor cardiac rate and rhythm Problem: Musculoskeletal - Adult Goal: Return mobility to safest level of function Outcome: Adequate for Discharge Flowsheets (Taken 11/07/2024720) Return mobility to safest level of function: Assess patient stability and activity tolerance for standing, transferring and ambulating with or without assistive devices Goal: Maintain proper alignment of affected body part Outcome: Adequate for Discharge Flowsheets (Taken 11/07/2024720) Maintain proper alignment of affected body part: Support and protect limb and body alignment per provider's orders Goal: Return ADL status to a safe level of function Outcome: Adequate for Discharge Flowsheets (Taken 11/07/2024720) Return ADL status to a safe level of function: Administer medication as ordered Problem: Gastrointestinal - Adult Goal: Minimal or absence of nausea and vomiting Outcome: Adequate for Discharge Flowsheets (Taken 11/07/2024720) Minimal or absence of nausea and vomiting: Administer IV fluids as ordered to ensure adequate hydration Goal: Maintains or returns to baseline bowel function Outcome: Adequate for Discharge Flowsheets (Taken 11/07/2024720) Maintains or returns to baseline bowel function: Assess bowel function Goal: Maintains adequate nutritional intake Outcome: Adequate for Discharge Flowsheets (Taken 11/07/2024720) Maintains adequate nutritional intake: Monitor percentage of each meal consumed Goal: Establish and maintain optimal ostomy function Outcome: Adequate for Discharge Flowsheets (Taken 11/07/2024720) Establish and maintain optimal ostomy function: Monitor output from ostomies Problem: Genitourinary - Adult Goal: Absence of urinary retention Outcome: Adequate for Discharge Flowsheets (Taken 11/07/2024720) Absence of urinary retention: Assess patient???s ability to void and empty bladder Goal: Urinary catheter remains patent Outcome: Adequate for Discharge Flowsheets (Taken 11/07/2024720) Urinary catheter remains patent: Assess patency of urinary catheter Problem: Infection - Adult Goal: Absence of infection at discharge Outcome: Adequate for Discharge Flowsheets (Taken 11/07/2024720) Absence of infection at discharge: Assess and monitor for signs and symptoms of infection Goal: Absence of infection during hospitalization Outcome: Adequate for Discharge Goal: Absence of fever/infection during anticipated neutropenic period Outcome: Adequate for Discharge Flowsheets (Taken 11/07/2024720) Absence of fever/infection during anticipated neutropenic period: Monitor white blood cell count Problem: Metabolic/Fluid and Electrolytes - Adult Goal: Electrolytes maintained within normal limits Outcome: Adequate for Discharge Flowsheets (Taken 11/07/2024720) Electrolytes maintained within normal limits: Monitor labs and assess patient for signs and symptoms of electrolyte imbalances Goal: Hemodynamic stability and optimal renal function maintained Outcome: Adequate for Discharge Flowsheets (Taken 11/07/2024720) Hemodynamic stability and optimal renal function maintained: Monitor labs and assess for signs and symptoms of volume excess or deficit Goal: Glucose maintained within prescribed range Outcome: Adequate for Discharge Flowsheets (Taken 11/07/2024720) Glucose maintained within prescribed range: Monitor blood glucose as ordered Problem: Hematologic - Adult Goal: Maintains hematologic stability Outcome: Adequate for Discharge Flowsheets (Taken 11/07/2024720) Maintains hematologic stability: Assess for signs and symptoms of bleeding or hemorrhage * Care Plan - Christine Baker RN - 11/06/2024 11:34 PM EDT The patient is Moderately Stable - Low risk of patient condition declining or worsening The patient's goals for the shift include comfort The clinical goals for the shift include pain control VS Over the shift, the patient did make progress toward the following goals. * Care Plan - Patricia Butt RN - 11/06/2024 3:37 PM EDT The patient is Moderately Stable - Low risk of patient condition declining or worsening The patient's goals for the shift include Pain control The clinical goals for the shift include Hemodynamically stable, VSS, comfort, pain control Over the shift, the patient did not make progress toward the following goals. 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 The patient also experiences intermittent chest pain, which intensifies with movement, particularly when getting up, which may affect her mobility and readiness for discharge. Additionally, a urinary retention episode required the placement of a [facility] catheter, and follow-up workup for dysfunctional voiding will be necessary. Hemoglobin/hematocrit levels are stable at 9.4 and trending upwards, but continued monitoringis essential. The patient also requires regular neurovascular checks every 4 hours due to the recent surgical intervention. Recommendations to address these barriers include ongoing monitoring of the surgical site and drainage is required. Pain management should continue with tramadol and verapamil, as these medications have helped reduce the chest pain. Regular neurovascular checks every 4 hours should be maintained, and DVT prophylaxis should be initiated. A ice pack should be applied to the groin site while the patient remains supine to manage discomfort. Collaboration with the primary care team will be importantto address her complex medical needs, including gastroparesis and other comorbid conditions. Problem: Pain - Adult Goal: Verbalizes/displays adequate comfort level or baseline comfort level Outcome: Not Progressing Flowsheets (Taken 11/06/2024 1330) Verbalizes/displays adequate comfort level or baseline comfort level: Encourage patient to monitor pain and request assistance Problem: Skin/Tissue Integrity - Adult Goal: Skin integrity remains intact Outcome: Not Progressing Flowsheets (Taken 11/06/2024 1330) Skin integrity remains intact: Monitor for areas of redness and/or skin breakdown Problem: Gastrointestinal - Adult Goal: Minimal or absence of nausea and vomiting Outcome: Not Progressing Flowsheets (Taken 11/06/2024 1330) Minimal or absence of nausea and vomiting: Administer IV fluids as ordered to ensure adequate hydration Problem: Genitourinary - Adult Goal: Absence of urinary retention Outcome: Not Progressing Flowsheets (Taken 11/06/2024 1330) Absence of urinary retention: Assess patient???s ability to void and empty bladder Problem: Metabolic/Fluid and Electrolytes - Adult Goal: Electrolytes maintained within normal limits Outcome: Not Progressing Flowsheets (Taken 11/06/2024 1330) Electrolytes maintained within normal limits: Monitor labs and assess patient for signs and symptoms of electrolyte imbalances * Care Plan - Shelley Otto RN - 11/06/2024 10:24 AM EDT Daily Case Management Update Multidisciplinary rounds have been completed. Barriers to Discharge: 11/06- hgb stable, patient is doing well, hematoma improved, [facility] out, on RA, pt ot ordered for dizziness when up yesterday. [facility] Anticipate discharge home. cb Diet: Dietary Orders (From admission, onward) Start Ordered 11/04/24 0855 Special Kitchen Request Once Comments: Please send oatmeal with brown sugar, a bagel with cream cheese, and coffee with cream and sugar. Thank you! 11/04/24 0854 11/03/24 1335 Special Kitchen Request Once Comments: Please send Old Fashioned Hot [place] entree, with a side of green beans; a side salad with mozzarella cheese, croutons, and Ranch dressing, and a Sprite. Thank you! 11/03/24 1337 11/03/24 0847 Special Kitchen Request Once Comments: Please send oatmeal with brown sugar, Rice Krispies with milk, and coffee with cream and sugar. Thank you! 11/03/24 0852 11/02/24 2236 Regular Diet Heart Healthy/HTN, CABG,Stroke, (2gNA, low fat, low cholesterol) Diet effective now Question Answer Comment Room Service? Yes Fat restriction: Heart Healthy/HTN, CABG,Stroke, (2gNA, low fat, low cholesterol) 11/02/24 2235 11/01/24 1519 Dietary nutrition supplements Lunch; Gelatein; Lignite; 4 oz; Oral Until discontinued Comments: When diet advances Question Answer Comment Deliver with Lunch Select supplement: Gelatein Flavor Lignite Strength: 4 oz Route Oral 11/01/24 1519 11/01/24 1518 Dietary nutrition supplements BID (breakfast & dinner); Boost Glucose Control; Chocolate; 8 oz; Oral Until discontinued Comments: When diet advances Question Answer Comment Deliver with BID breakfast & dinner Select supplement: Boost Glucose Control Flavor: Chocolate Strength: 8 oz Route Oral 11/01/24 1519 Physician Expected Discharge Date: 11/02/2024 Discharge Delays: PT Six Click Score: 12 OT Six Click Score: PT Recommendations: OT Recommendations: New Consults: Consult Orders (From admission, onward) Start Ordered 11/06/24 0844 Inpatient consult to Hospitalist Once Specialty: Internal Medicine Provider: (Not yet assigned) Question Answer Comment Consulting Group Medicine (ADMIT/FLOAT) Reason for Consult? Resume primary Level of Consultation Bird Sitter assumes full responsibility 11/06/24 0844 Therapy Orders (From admission, onward) Start Ordered 11/06/24 0829 PT eval and treat Until therapy completed Question: Reason for PT? Answer: eval and treat 11/06/24 0828 11/06/24 0829 OT eval and treat Until therapy completed Question: Reason for OT? Answer: eval and treat 11/06/24827 * Care Plan - Radha Godoy RN - 11/05/2024 8:57 PM EDT The patient's goals for the shift include Pain Control and Rest The clinical goals for the shift include Stable VS, Hemodynamics, Free of Chest Pain Problem: Pain - Adult Goal: Verbalizes/displays adequate comfort level or baseline comfort level Outcome: Progressing Flowsheets (Taken 11/05/20242041) Verbalizes/displays adequate comfort level or baseline comfort level: Encourage patient to monitor pain and request assistance Assess pain using appropriate pain scale Administer analgesics based on type and severity of pain and evaluate response Implement non-pharmacological measures as appropriate and evaluate response Consider cultural and social influences on pain and pain management Notify Licensed Independent Practitioner if interventions unsuccessful or patient reports new pain Problem: Safety - Adult Goal: Free from fall injury Outcome: Progressing Flowsheets (Taken 11/05/20242041) Free from fall injury: Assess patient frequently for physical needs Identify cognitive and physical deficits and behaviors that affect risk of falls [place] fall precautions as indicated by assessment Educate patient/family on patient safety, including physical limitations Instruct patient to call for assistance with activity based on assessment Modify environment to reduce risk of injury Consider OT/PT consult to assist with strengthening/mobility Problem: Discharge Planning Goal: Discharge to home or other facility with appropriate resources Outcome: Progressing Flowsheets (Taken 11/05/20242041) Discharge to home or other facility with appropriate resources: Identify barriers to discharge with patient and caregiver Arrange for needed discharge resources and transportation as appropriate Identify discharge learning needs (meds, wound care, etc) Refer to discharge planning if patient needs post-hospital services based on physician order or complex needs related to functional status, cognitive ability or social support system Problem: Chronic Conditions and Co-morbidities Goal: Patient's chronic conditions and co-morbidity symptoms are monitored and maintained or improved Outcome: Progressing Flowsheets (Taken 11/05/20242041) Care Plan - Patient's Chronic Conditions and Co-Morbidity Symptoms are Monitored and Maintained or Improved: Monitor and assess patient's chronic conditions and comorbid symptoms for stability, deterioration,or improvement Collaborate with multidisciplinary team to address chronic and comorbid conditions and prevent exacerbation or deterioration Update acute care plan with appropriate goals if chronic or comorbid symptoms are exacerbated and prevent overall improvement and discharge Problem: Skin/Tissue Integrity - Adult Goal: Skin integrity remains intact Outcome: Progressing Flowsheets (Taken 11/05/20242041) Skin integrity remains intact: Monitor for areas of redness and/or skin breakdown Assess vascular access sites hourly Change oxygen saturation probe site as needed Goal: Oral mucous membranes remain intact Outcome: Progressing Flowsheets (Taken 11/05/20242041) Oral mucous membranes remain intact: Assess oral mucosa and hygiene practices Implement preventative oral hygiene regimen Implement oral medicated treatments as ordered Goal: Incisions, wounds, or drain sites healing without S/S of infection Outcome: Progressing Flowsheets (Taken 11/05/20242041) Incisions, wounds, or drain sites healing without sign and symptoms of infection: ADMISSION and DAILY: Assess and document risk factors for pressure ulcer development TWICE DAILY: Assess and document skin integrity TWICE DAILY: Assess and document dressing/incision, wound bed, drain sites and surrounding tissue Problem: Neurosensory - Adult Goal: Achieves stable or improved neurological status Outcome: Progressing Flowsheets (Taken 11/05/20242041) Achieves stable or improved neurological status: Assess for and report changes in neurological status Problem: Respiratory - Adult Goal: Achieves optimal ventilation and oxygenation Outcome: Progressing Flowsheets (Taken 11/05/20242041) Achieves optimal ventilation and oxygenation: Assess for changes in respiratory status Assess for changes in mentation and behavior Position to facilitate oxygenation and minimize respiratory effort Oxygen supplementation based on oxygen saturation or arterial blood gases Encourage broncho-pulmonary hygiene including cough, deep breathe, incentive spirometry Assess the need for suctioning and aspirate as needed Assess and instruct to report shortness of breath or any respiratory difficulty Respiratory therapy support as indicated Problem: Cardiovascular - Adult Goal: Maintains optimal cardiac output and hemodynamic stability Outcome: Progressing Flowsheets (Taken 11/05/20242041) Maintains optimal cardiac output and hemodynamic stability: Monitor blood pressure and heart rate Monitor urine output and notify Licensed Independent Practitioner for values outside of normal range Assess for signs of decreased cardiac output Goal: Absence of cardiac dysrhythmias or at baseline Outcome: Progressing Flowsheets (Taken 11/05/20242041) Absence of cardiac dysrhythmias or at baseline: Monitor cardiac rate and rhythm Assess for signs of decreased cardiac output Problem: Musculoskeletal - Adult Goal: Return mobility to safest level of function Outcome: Progressing Flowsheets (Taken 11/05/20242041) Return mobility to safest level of function: Assess patient stability and activity tolerance for standing, transferring and ambulating with or without assistive devices Assist with transfers and ambulation using safe patient handling equipment as needed Ensure adequate protection for wounds/incisions during mobilization Obtain physical therapy/occupational therapy consults as needed Instruct patient/family in ordered activity level Problem: Gastrointestinal - Adult Goal: Minimal or absence of nausea and vomiting Outcome: Progressing Flowsheets (Taken 11/05/20242041) Minimal or absence of nausea and vomiting: Administer IV fluids as ordered to ensure adequate hydration Administer ordered antiemetic medications as needed Provide nonpharmacologic comfort measures as appropriate Nutrition consult to assist patient with adequate nutrition and appropriate food choices Goal: Maintains or returns to baseline bowel function Outcome: Progressing Flowsheets (Taken 11/05/20242041) Maintains or returns to baseline bowel function: Assess bowel function Encourage oral fluids to ensure adequate hydration Administer IV fluids as ordered to ensure adequate hydration Administer ordered medications as needed Encourage mobilization and activity Nutrition consult to assist patient with appropriate food choices Goal: Maintains adequate nutritional intake Outcome: Progressing Flowsheets (Taken 11/05/20242041) Maintains adequate nutritional intake: Monitor percentage of each meal consumed Identify factors contributing to decreased intake, treat as appropriate Monitor intake and output, weight and lab values Obtain nutritional consult as needed Problem: Genitourinary - Adult Goal: Absence of urinary retention Outcome: Progressing Flowsheets (Taken 11/05/20242041) Absence of urinary retention: Assess patient???s ability to void and empty bladder Monitor intake/output and perform bladder scan as needed Place urinary catheter per Licensed Independent Practitioner order if needed Discuss catheterization for intermission coordinator situations as appropriate Goal: Urinary catheter remains patent Outcome: Progressing Flowsheets (Taken 11/05/20242041) Urinary catheter remains patent: Assess patency of urinary catheter Problem: Infection - Adult Goal: Absence of infection during hospitalization Outcome: Progressing Flowsheets (Taken 11/05/20242041) Absence of infection during hospitalization: Assess and monitor for signs and symptoms of infection Monitor lab/diagnostic results Monitor all insertion sites i.e., indwelling lines, tubes and drains Grawn appropriate cooling/warming therapies per order Administer medications as ordered Instruct and encourage patient and family to use good hand hygiene technique Identify and instruct in appropriate isolation precautions for identified infection/condition Problem: Metabolic/Fluid and Electrolytes - Adult Goal: Electrolytes maintained within normal limits Outcome: Progressing Flowsheets (Taken 11/05/20242041) Electrolytes maintained within normal limits: Monitor labs and assess patient for signs and symptoms of electrolyte imbalances Administer electrolyte replacement as ordered Monitor response to electrolyte replacements, including repeat lab results as appropriate Goal: Hemodynamic stability and optimal renal function maintained Outcome: Progressing Flowsheets (Taken 11/05/20242041) Hemodynamic stability and optimal renal function maintained: Monitor labs and assess for signs and symptoms of volume excess or deficit Monitor intake, output and patient weight Monitor urine specific gravity, serum osmolarity and serum sodium as indicated or ordered Encourage oral intake as appropriate Instruct patient on fluid and nutrition restrictions as appropriate Monitor response to interventions for patient's volume status, including labs, urine output, blood pressure (other measures as available) Goal: Glucose maintained within prescribed range Outcome: Progressing Flowsheets (Taken 11/05/20242041) Glucose maintained within prescribed range: Monitor blood glucose as ordered Assess for signs and symptoms of hyperglycemia and hypoglycemia Administer ordered medications to maintain glucose within target range Assess barriers to adequate nutritional intake and initiate nutrition consult as needed Problem: Hematologic - Adult Goal: Maintains hematologic stability Outcome: Progressing Flowsheets (Taken 11/05/20242041) Maintains hematologic stability: Assess for signs and symptoms of bleeding or hemorrhage Monitor labs for bleeding or clotting disorders Administer blood products/factors as ordered Problem: Knowledge Deficit Goal: Patient/family/caregiver demonstrates understanding of disease process, treatment plan, medications, and discharge instructions Outcome: Progressing Problem: Potential for Compromised Skin Integrity Goal: Skin Integrity is Maintained or Improved Outcome: Progressing Goal: Nutritional status is improving Outcome: Progressing * Care Plan - Joanna French RN - 11/05/2024 9:36 AM EDT Problem: Pain - Adult Goal: Verbalizes/displays adequate comfort level or baseline comfort level Outcome: Progressing Flowsheets (Taken 11/05/2024799) Verbalizes/displays adequate comfort level or baseline comfort level: Encourage patient to monitor pain and request assistance Assess pain using appropriate pain scale Administer analgesics based on type and severity of pain and evaluate response Implement non-pharmacological measures as appropriate and evaluate response Consider cultural and social influences on pain and pain management Notify Licensed Independent Practitioner if interventions unsuccessful or patient reports new pain Problem: Safety - Adult Goal: Free from fall injury Outcome: Progressing Flowsheets (Taken 11/05/2024799) Free from fall injury: Assess patient frequently for physical needs Identify cognitive and physical deficits and behaviors that affect risk of falls Grawn fall precautions as indicated by assessment Educate patient/family on patient safety, including physical limitations Instruct patient to call for assistance with activity based on assessment Modify environment to reduce risk of injury Consider OT/PT consult to assist with strengthening/mobility Problem: Discharge Planning Goal: Discharge to home or other facility with appropriate resources Outcome: Progressing Flowsheets (Taken 11/05/2024799) Discharge to home or other facility with appropriate resources: Identify barriers to discharge with patient and caregiver Arrange for needed discharge resources and transportation as appropriate Identify discharge learning needs (meds, wound care, etc) Arrange for interpreters to assist at discharge as needed Refer to discharge planning if patient needs post-hospital services based on physician order or complex needs related to functional status, cognitive ability or social support system Problem: Chronic Conditions and Co-morbidities Goal: Patient's chronic conditions and co-morbidity symptoms are monitored and maintained or improved Outcome: Progressing Flowsheets (Taken 11/05/2024799) Care Plan - Patient's Chronic Conditions and Co-Morbidity Symptoms are Monitored and Maintained or Improved: Monitor and assess patient's chronic conditions and comorbid symptoms for stability, deterioration,or improvement Collaborate with multidisciplinary team to address chronic and comorbid conditions and prevent exacerbation or deterioration Update acute care plan with appropriate goals if chronic or comorbid symptoms are exacerbated and prevent overall improvement and discharge Problem: Skin/Tissue Integrity - Adult Goal: Skin integrity remains intact Outcome: Progressing Flowsheets (Taken 11/05/2024799) Skin integrity remains intact: Monitor for areas of redness and/or skin breakdown Assess vascular access sites hourly Change oxygen saturation probe site as needed If on nasal continuous positive airway pressure, respiratory therapy assesses nares and determine need for appliance change or resting period as needed Goal: Oral mucous membranes remain intact Outcome: Progressing Flowsheets (Taken 11/05/2024799) Oral mucous membranes remain intact: Assess oral mucosa and hygiene practices Implement preventative oral hygiene regimen Implement oral medicated treatments as ordered Goal: Incisions, wounds, or drain sites healing without S/S of infection Outcome: Progressing Flowsheets (Taken 11/05/2024799) Incisions, wounds, or drain sites healing without sign and symptoms of infection: ADMISSION and DAILY: Assess and document risk factors for pressure ulcer development TWICE DAILY: Assess and document skin integrity TWICE DAILY: Assess and document dressing/incision, wound bed, drain sites and surrounding tissue Implement wound care per orders Initiate isolation precautions as appropriate Initiate pressure ulcer prevention bundle as indicated Problem: Neurosensory - Adult Goal: Achieves stable or improved neurological status Outcome: Progressing Flowsheets (Taken 11/05/2024799) Achieves stable or improved neurological status: Assess for and report changes in neurological status Goal: Absence of seizures Outcome: Progressing Flowsheets (Taken 11/05/2024799) Absence of seizures: Monitor for seizure activity. If seizure occurs, document type and location ofmovements and any associated apnea Goal: Remains free of injury related to seizures activity Outcome: Progressing Flowsheets (Taken 11/05/2024799) Remains free of injury related to seizure activity: Maintain airway, patient safety and administer oxygen as ordered Monitor patient for seizure activity, document and report duration and description of seizure to Licensed Independent Practitioner Goal: Achieves maximal functionality and self care Outcome: Progressing Flowsheets (Taken 11/05/2024799) Achieves maximal functionality and self care: Monitor swallowing and airway patency with patient fatigue and changes in neurological status Problem: Respiratory - Adult Goal: Achieves optimal ventilation and oxygenation Outcome: Progressing Flowsheets (Taken 11/05/2024799) Achieves optimal ventilation and oxygenation: Assess for changes in respiratory status Assess for changes in mentation and behavior Position to facilitate oxygenation and minimize respiratory effort Oxygen supplementation based on oxygen saturation or arterial blood gases Initiate smoking cessation protocol as indicated Encourage broncho-pulmonary hygiene including cough, deep breathe, incentive spirometry Assess the need for suctioning and aspirate as needed Assess and instruct to report shortness of breath or any respiratory difficulty Respiratory therapy support as indicated Problem: Cardiovascular - Adult Goal: Maintains optimal cardiac output and hemodynamic stability Outcome: Progressing Flowsheets (Taken 11/05/2024799) Maintains optimal cardiac output and hemodynamic stability: Monitor blood pressure and heart rate Monitor urine output and notify Licensed Independent Practitioner for values outside of normal range Assess for signs of decreased cardiac output Administer fluid and/or volume expanders as ordered Administer vasoactive medications as ordered Goal: Absence of cardiac dysrhythmias or at baseline Outcome: Progressing Flowsheets (Taken 11/05/2024799) Absence of cardiac dysrhythmias or at baseline: Monitor cardiac rate and rhythm Assess for signs of decreased cardiac output Administer antiarrhythmia medication and electrolyte replacement as ordered Problem: Musculoskeletal - Adult Goal: Return mobility to safest level of function Outcome: Progressing Flowsheets (Taken 11/05/2024799) Return mobility to safest level of function: Assess patient stability and activity tolerance for standing, transferring and ambulating with or without assistive devices Assist with transfers and ambulation using safe patient handling equipment as needed Ensure adequate protection for wounds/incisions during mobilization Obtain physical therapy/occupational therapy consults as needed Apply continuous passive motion per provider or physical therapy orders to increase flexion toward goal Instruct patient/family in ordered activity level Goal: Maintain proper alignment of affected body part Outcome: Progressing Flowsheets (Taken 11/05/2024799) Maintain proper alignment of affected body part: Support and protect limb and body alignment per provider's orders Instruct and reinforce with patient and family use of appropriate assistive device and precautions (e.g. spinal or hip dislocation precautions) Goal: Return ADL status to a safe level of function Outcome: Progressing Flowsheets (Taken 11/05/2024799) Return ADL status to a safe level of function: Administer medication as ordered Assess activities of daily living deficits and provide assistive devices as needed Assist and instruct patient to increase activity and self care as tolerated Obtain physical therapy/occupational therapy consults as needed Problem: Gastrointestinal - Adult Goal: Minimal or absence of nausea and vomiting Outcome: Progressing Flowsheets (Taken 11/05/2024799) Minimal or absence of nausea and vomiting: Administer IV fluids as ordered to ensure adequate hydration Maintain NPO status until nausea and vomiting are resolved Nasogastric tube to low intermittent suction as ordered Administer ordered antiemetic medications as needed Provide nonpharmacologic comfort measures as appropriate Advance diet as tolerated, if ordered Nutrition consult to assist patient with adequate nutrition and appropriate food choices Goal: Maintains or returns to baseline bowel function Outcome: Progressing Flowsheets (Taken 11/05/2024799) Maintains or returns to baseline bowel function: Assess bowel function Encourage oral fluids to ensure adequate hydration Administer IV fluids as ordered to ensure adequate hydration Administer ordered medications as needed Encourage mobilization and activity Nutrition consult to assist patient with appropriate food choices Goal: Maintains adequate nutritional intake Outcome: Progressing Flowsheets (Taken 11/05/2024799) Maintains adequate nutritional intake: Monitor percentage of each meal consumed Identify factors contributing to decreased intake, treat as appropriate Assist with meals as needed Monitor intake and output, weight and lab values Obtain nutritional consult as needed Goal: Establish and maintain optimal ostomy function Outcome: Progressing Flowsheets (Taken 11/05/2024799) Establish and maintain optimal ostomy function: Monitor output from ostomies Administer IV fluids and TPN as ordered Introduce and advance enteral feedings as ordered Nutrition consult Problem: Genitourinary - Adult Goal: Absence of urinary retention Outcome: Progressing Flowsheets (Taken 11/05/2024799) Absence of urinary retention: Assess patient???s ability to void and empty bladder Monitor intake/output and perform bladder scan as needed Place urinary catheter per Licensed Independent Practitioner order if needed Discuss with Licensed Independent Practitioner medications to alleviate retention as needed Discuss catheterization for intermission coordinator situations as appropriate Goal: Urinary catheter remains patent Outcome: Progressing Flowsheets (Taken 11/05/2024799) Urinary catheter remains patent: Assess patency of urinary catheter Irrigate catheter per Licensed Independent Practitioner order if indicated and notify Licensed Independent Practitioner if unable to irrigate Assess need for a larger catheter size or a 3-way catheter for continuous bladder irrigation Problem: Infection - Adult Goal: Absence of infection at discharge Outcome: Progressing Flowsheets (Taken 11/05/2024799) Absence of infection at discharge: Assess and monitor for signs and symptoms of infection Monitor lab/diagnostic results Monitor all insertion sites i.e., indwelling lines, tubes and drains Monitor endotracheal (as able) and nasal secretions for changes in amount and color Grawn appropriate cooling/warming therapies per order Administer medications as ordered Instruct and encourage patient and family to use good hand hygiene technique Identify and instruct in appropriate isolation precautions for identified infection/condition Goal: Absence of infection during hospitalization Outcome: Progressing Goal: Absence of fever/infection during anticipated neutropenic period Outcome: Progressing Flowsheets (Taken 11/05/2024799) Absence of fever/infection during anticipated neutropenic period: Monitor white blood cell count Administer growth factors as ordered Implement neutropenic guidelines Problem: Metabolic/Fluid and Electrolytes - Adult Goal: Electrolytes maintained within normal limits Outcome: Progressing Flowsheets (Taken 11/05/2024799) Electrolytes maintained within normal limits: Monitor labs and assess patient for signs and symptoms of electrolyte imbalances Administer electrolyte replacement as ordered Monitor response to electrolyte replacements, including repeat lab results as appropriate Fluid restriction as ordered Instruct patient on fluid and nutrition restrictions as appropriate Goal: Hemodynamic stability and optimal renal function maintained Outcome: Progressing Flowsheets (Taken 11/05/2024799) Hemodynamic stability and optimal renal function maintained: Monitor labs and assess for signs and symptoms of volume excess or deficit Monitor intake, output and patient weight Monitor urine specific gravity, serum osmolarity and serum sodium as indicated or ordered Monitor response to interventions for patient's volume status, including labs, urine output, blood pressure (other measures as available) Encourage oral intake as appropriate Instruct patient on fluid and nutrition restrictions as appropriate Goal: Glucose maintained within prescribed range Outcome: Progressing Flowsheets (Taken 11/05/2024799) Glucose maintained within prescribed range: Monitor blood glucose as ordered Assess for signs and symptoms of hyperglycemia and hypoglycemia Administer ordered medications to maintain glucose within target range Assess barriers to adequate nutritional intake and initiate nutrition consult as needed Instruct patient on self management of diabetes and initiate consult as needed Problem: Hematologic - Adult Goal: Maintains hematologic stability Outcome: Progressing Flowsheets (Taken 11/05/2024799) Maintains hematologic stability: Assess for signs and symptoms of bleeding or hemorrhage Monitor labs for bleeding or clotting disorders Administer blood products/factors as ordered Problem: Knowledge Deficit Goal: Patient/family/caregiver demonstrates understanding of disease process, treatment plan, medications, and discharge instructions Outcome: Progressing Problem: Potential for Compromised Skin Integrity Goal: Skin Integrity is Maintained or Improved Outcome: Progressing Goal: Nutritional status is improving Outcome: Progressing The patient is Moderately Stable - Low risk of patient condition declining or worsening The patient's goals for the shift include pain control, comfort The clinical goals for the shift include vss, pain control, rest, incr mobilization * Care Plan - Juan José Leslie RN - 11/04/2024 5:48 AM EDT Problem: Pain - Adult Goal: Verbalizes/displays adequate comfort level or baseline comfort level Outcome: Progressing Problem: Safety - Adult Goal: Free from fall injury Outcome: Progressing Problem: Discharge Planning Goal: Discharge to home or other facility with appropriate resources Outcome: Progressing Problem: Chronic Conditions and Co-morbidities Goal: Patient's chronic conditions and co-morbidity symptoms are monitored and maintained or improved Outcome: Progressing Problem: Skin/Tissue Integrity - Adult Goal: Skin integrity remains intact Outcome: Progressing Goal: Oral mucous membranes remain intact Outcome: Progressing Goal: Incisions, wounds, or drain sites healing without S/S of infection Outcome: Progressing Problem: Knowledge Deficit Goal: Patient/family/caregiver demonstrates understanding of disease process, treatment plan, medications, and discharge instructions Outcome: Progressing Problem: Potential for Compromised Skin Integrity Goal: Skin Integrity is Maintained or Improved Outcome: Progressing Goal: Nutritional status is improving Outcome: Progressing Problem: Neurosensory - Adult Goal: Achieves stable or improved neurological status Outcome: Progressing Goal: Absence of seizures Outcome: Progressing Goal: Remains free of injury related to seizures activity Outcome: Progressing Goal: Achieves maximal functionality and self care Outcome: Progressing Problem: Respiratory - Adult Goal: Achieves optimal ventilation and oxygenation Outcome: Progressing Problem: Cardiovascular - Adult Goal: Maintains optimal cardiac output and hemodynamic stability Outcome: Progressing Goal: Absence of cardiac dysrhythmias or at baseline Outcome: Progressing Problem: Musculoskeletal - Adult Goal: Return mobility to safest level of function Outcome: Progressing Goal: Maintain proper alignment of affected body part Outcome: Progressing Goal: Return ADL status to a safe level of function Outcome: Progressing Problem: Gastrointestinal - Adult Goal: Minimal or absence of nausea and vomiting Outcome: Progressing Goal: Maintains or returns to baseline bowel function Outcome: Progressing Goal: Maintains adequate nutritional intake Outcome: Progressing Goal: Establish and maintain optimal ostomy function Outcome: Progressing Problem: Genitourinary - Adult Goal: Absence of urinary retention Outcome: Progressing Goal: Urinary catheter remains patent Outcome: Progressing Problem: Infection - Adult Goal: Absence of infection at discharge Outcome: Progressing Goal: Absence of infection during hospitalization Outcome: Progressing Goal: Absence of fever/infection during anticipated neutropenic period Outcome: Progressing Problem: Metabolic/Fluid and Electrolytes - Adult Goal: Electrolytes maintained within normal limits Outcome: Progressing Goal: Hemodynamic stability and optimal renal function maintained Outcome: Progressing Goal: Glucose maintained within prescribed range Outcome: Progressing Problem: Hematologic - Adult Goal: Maintains hematologic stability Outcome: Progressing * Care Plan - Orlando Mendoza RN - 11/03/2024 6:20 AM EDT Problem: Pain - Adult Goal: Verbalizes/displays adequate comfort level or baseline comfort level Outcome: Progressing Problem: Safety - Adult Goal: Free from fall injury Outcome: Progressing Problem: Discharge Planning Goal: Discharge to home or other facility with appropriate resources Outcome: Progressing Problem: Chronic Conditions and Co-morbidities Goal: Patient's chronic conditions and co-morbidity symptoms are monitored and maintained or improved Outcome: Progressing Flowsheets (Taken 11/03/2024) Care Plan - Patient's Chronic Conditions and Co-Morbidity Symptoms are Monitored and Maintained or Improved: Monitor and assess patient's chronic conditions and comorbid symptoms for stability, deterioration,or improvement Collaborate with multidisciplinary team to address chronic and comorbid conditions and prevent exacerbation or deterioration Update acute care plan with appropriate goals if chronic or comorbid symptoms are exacerbated and prevent overall improvement and discharge Problem: Skin/Tissue Integrity - Adult Goal: Skin integrity remains intact Outcome: Progressing Flowsheets (Taken 11/03/2024) Skin integrity remains intact: Monitor for areas of redness and/or skin breakdown Assess vascular access sites hourly Change oxygen saturation probe site as needed If on nasal continuous positive airway pressure, respiratory therapy assesses nares and determine need for appliance change or resting period as needed Goal: Oral mucous membranes remain intact Outcome: Progressing Flowsheets (Taken 11/03/2024) Oral mucous membranes remain intact: Assess oral mucosa and hygiene practices Implement preventative oral hygiene regimen Implement oral medicated treatments as ordered Goal: Incisions, wounds, or drain sites healing without S/S of infection Outcome: Progressing Flowsheets (Taken 11/03/2024) Incisions, wounds, or drain sites healing without sign and symptoms of infection: ADMISSION and DAILY: Assess and document risk factors for pressure ulcer development TWICE DAILY: Assess and document skin integrity TWICE DAILY: Assess and document dressing/incision, wound bed, drain sites and surrounding tissue Problem: Knowledge Deficit Goal: Patient/family/caregiver demonstrates understanding of disease process, treatment plan, medications, and discharge instructions Outcome: Progressing Problem: Potential for Compromised Skin Integrity Goal: Skin Integrity is Maintained or Improved Outcome: Progressing Goal: Nutritional status is improving Outcome: Progressing Problem: Neurosensory - Adult Goal: Achieves stable or improved neurological status Outcome: Progressing Flowsheets (Taken 11/03/2024) Achieves stable or improved neurological status: Assess for and report changes in neurological status Initiate measures to prevent increased intracranial pressure Maintain blood pressure and fluid volume within ordered parameters to optimize cerebral perfusion and minimize risk of hemorrhage Monitor temperature, glucose, and sodium. Initiate appropriate interventions as ordered Goal: Absence of seizures Outcome: Progressing Flowsheets (Taken 11/03/2024) Absence of seizures: Monitor for seizure activity. If seizure occurs, document type and location of movements and any associated apnea If seizure occurs, turn head to side and suction secretions as needed Support airway/breathing, administer oxygen as needed Administer anticonvulsants as ordered Goal: Remains free of injury related to seizures activity Outcome: Progressing Flowsheets (Taken 11/03/2024) Remains free of injury related to seizure activity: Monitor patient for seizure activity, document and report duration and description of seizure to Licensed Independent Practitioner Maintain airway, patient safety and administer oxygen as ordered If seizure occurs, turn patient to side and suction secretions as needed Reorient patient post seizure Goal: Achieves maximal functionality and self care Outcome: Progressing Flowsheets (Taken 11/03/2024) Achieves maximal functionality and self care: Monitor swallowing and airway patency with patient fatigue and changes in neurological status Encourage and assist patient to increase activity and self care with guidance from physical therapy/occupational therapy Encourage visually impaired, hearing impaired and aphasic patients to use assistive/communication devices Problem: Respiratory - Adult Goal: Achieves optimal ventilation and oxygenation Outcome: Progressing Flowsheets (Taken 11/03/2024) Achieves optimal ventilation and oxygenation: Assess for changes in respiratory status Position to facilitate oxygenation and minimize respiratory effort Assess for changes in mentation and behavior Oxygen supplementation based on oxygen saturation or arterial blood gases Initiate smoking cessation protocol as indicated Encourage broncho-pulmonary hygiene including cough, deep breathe, incentive spirometry Assess the need for suctioning and aspirate as needed Assess and instruct to report shortness of breath or any respiratory difficulty Respiratory therapy support as indicated Problem: Cardiovascular - Adult Goal: Maintains optimal cardiac output and hemodynamic stability Outcome: Progressing Flowsheets (Taken 11/03/2024) Maintains optimal cardiac output and hemodynamic stability: Monitor blood pressure and heart rate Monitor urine output and notify Licensed Independent Practitioner for values outside of normal range Assess for signs of decreased cardiac output Administer fluid and/or volume expanders as ordered Goal: Absence of cardiac dysrhythmias or at baseline Outcome: Progressing Flowsheets (Taken 11/03/2024) Absence of cardiac dysrhythmias or at baseline: Monitor cardiac rate and rhythm Assess for signs of decreased cardiac output Administer antiarrhythmia medication and electrolyte replacement as ordered Problem: Musculoskeletal - Adult Goal: Return mobility to safest level of function Outcome: Progressing Flowsheets (Taken 11/03/2024) Return mobility to safest level of function: Assess patient stability and activity tolerance for standing, transferring and ambulating with or without assistive devices Assist with transfers and ambulation using safe patient handling equipment as needed Ensure adequate protection for wounds/incisions during mobilization Apply continuous passive motion per provider or physical therapy orders to increase flexion toward goal Instruct patient/family in ordered activity level Goal: Maintain proper alignment of affected body part Outcome: Progressing Flowsheets (Taken 11/03/2024) Maintain proper alignment of affected body part: Support and protect limb and body alignment per provider's orders Instruct and reinforce with patient and family use of appropriate assistive device and precautions (e.g. spinal or hip dislocation precautions) Goal: Return ADL status to a safe level of function Outcome: Progressing Flowsheets (Taken 11/03/2024) Return ADL status to a safe level of function: Administer medication as ordered Assess activities of daily living deficits and provide assistive devices as needed Assist and instruct patient to increase activity and self care as tolerated Problem: Gastrointestinal - Adult Goal: Minimal or absence of nausea and vomiting Outcome: Progressing Flowsheets (Taken 11/03/2024) Minimal or absence of nausea and vomiting: Administer IV fluids as ordered to ensure adequate hydration Administer ordered antiemetic medications as needed Provide nonpharmacologic comfort measures as appropriate Advance diet as tolerated, if ordered Nutrition consult to assist patient with adequate nutrition and appropriate food choices Goal: Maintains or returns to baseline bowel function Outcome: Progressing Flowsheets (Taken 11/03/2024) Maintains or returns to baseline bowel function: Assess bowel function Encourage oral fluids to ensure adequate hydration Administer IV fluids as ordered to ensure adequate hydration Administer ordered medications as needed Encourage mobilization and activity Nutrition consult to assist patient with appropriate food choices Goal: Maintains adequate nutritional intake Outcome: Progressing Flowsheets (Taken 11/03/2024) Maintains adequate nutritional intake: Monitor percentage of each meal consumed Identify factors contributing to decreased intake, treat as appropriate Assist with meals as needed Monitor intake and output, weight and lab values Obtain nutritional consult as needed Goal: Establish and maintain optimal ostomy function Outcome: Progressing Flowsheets (Taken 11/03/2024) Establish and maintain optimal ostomy function: Monitor output from ostomies Administer IV fluids and TPN as ordered Introduce and advance enteral feedings as ordered Nutrition consult Problem: Genitourinary - Adult Goal: Absence of urinary retention Outcome: Progressing Flowsheets (Taken 11/03/2024) Absence of urinary retention: Assess patient???s ability to void and empty bladder Monitor intake/output and perform bladder scan as needed Goal: Urinary catheter remains patent Outcome: Progressing Problem: Infection - Adult Goal: Absence of infection at discharge Outcome: Progressing Flowsheets (Taken 11/03/2024) Absence of infection at discharge: Assess and monitor for signs and symptoms of infection Monitor lab/diagnostic results Monitor all insertion sites i.e., indwelling lines, tubes and drains [place]wn appropriate cooling/warming therapies per order Instruct and encourage patient and family to use good hand hygiene technique Administer medications as ordered Identify and instruct in appropriate isolation precautions for identified infection/condition Goal: Absence of infection during hospitalization Outcome: Progressing Goal: Absence of fever/infection during anticipated neutropenic period Outcome: Progressing Flowsheets (Taken 11/03/2024) Absence of fever/infection during anticipated neutropenic period: Administer growth factors as ordered Monitor white blood cell count Implement neutropenic guidelines Problem: Metabolic/Fluid and Electrolytes - Adult Goal: Electrolytes maintained within normal limits Outcome: Progressing Flowsheets (Taken 11/03/2024) Electrolytes maintained within normal limits: Monitor labs and assess patient for signs and symptoms of electrolyte imbalances Administer electrolyte replacement as ordered Monitor response to electrolyte replacements, including repeat lab results as appropriate Fluid restriction as ordered Instruct patient on fluid and nutrition restrictions as appropriate Goal: Hemodynamic stability and optimal renal function maintained Outcome: Progressing Flowsheets (Taken 11/03/2024) Hemodynamic stability and optimal renal function maintained: Monitor labs and assess for signs and symptoms of volume excess or deficit Monitor intake, output and patient weight Monitor urine specific gravity, serum osmolarity and serum sodium as indicated or ordered Monitor response to interventions for patient's volume status, including labs, urine output, blood pressure (other measures as available) Encourage oral intake as appropriate Instruct patient on fluid and nutrition restrictions as appropriate Goal: Glucose maintained within prescribed range Outcome: Progressing Flowsheets (Taken 11/03/2024) Glucose maintained within prescribed range: Monitor blood glucose as ordered Assess for signs and symptoms of hyperglycemia and hypoglycemia Administer ordered medications to maintain glucose within target range Assess barriers to adequate nutritional intake and initiate nutrition consult as needed Instruct patient on self management of diabetes and initiate consult as needed Problem: Hematologic - Adult Goal: Maintains hematologic stability Outcome: Progressing Flowsheets (Taken 11/03/2024 0000) Maintains hematologic stability: Assess for signs and symptoms of bleeding or hemorrhage Monitor labs for bleeding or clotting disorders Administer blood products/factors as ordered The patient is Moderately Stable - Low risk of patient condition declining or worsening The patient's goals for the shift include pain control and rest The clinical goals for the shift include stable hemodynamics and no bleeding * Significant Event - Janet Soto MD - 11/02/2024 8:48 PM EDT Patient was in recovery after cath around 5 pm ACT was checked and was 176. Femoral sheath pulled with steady pressure held for 30 minutes. During this time a small hematoma was noted and manual pressure held by asphalt plant laborer DEE Stubbs over the hematoma site as well. Dr Collins informed and advised to continue holding pressure. At around 7 pm the hematoma was noted to be expanding. Dr Gilmore, the [employer] division manager interventionalist was at bedside, evaluated the patient and held manual compression. Dr Gilmore contacted vascular surgery who presented at bedside and agreed to proceed with surgical evacuation of the hematoma. Blood transfusion, type and screen, labs were ordered and IV fluids and pain medic ation administered. We continued to hold manual pressure throughout this time. By 8 pm her vital signs became borderline unstable and she was emergently taken to the OR with asphalt plant laborer team, and surgery at bedside. Patients family (mom and ) were updated on the situation. Patient will be admitted to SICU post-operatively. Janet Soto MD Fire Crew Specialist, PGY-4 [facility] 11/02/24 8:56 PM Cosigned by Tino Gilmore MD at 11/02/2024 9:42 PM EDT Associated attestation - Tino Gilmore MD - 11/02/2024 9:42 PM EDT By using the attestations below, I agree that I have read and verify that the documentation has been personally reviewed by me and ensure that the documentation accurately reflects the encounter. GC: I personally saw this patient on the day of the encounter, performed the paula portions of the service and participated in the management and treatment plan of the patient. I reviewed and confirm the documentation by the Cardiovascular Fellow Dr Janet Soto. Please note there may be an additional personal documentation from me. I was called by Dr. Wali Collins to assist with hemostasis of the right femoral access site after the cardiac catheterization. The sheath was pulled at adequate ACT level and manual compressionwas applied. However there has been inability to control the bleed and she developed a large hematoma. When I arrived to the 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structor I assessed the hematoma to be significant with extension of the hematoma to the surrounding tissues. The hematoma was tense. There was palpable pulses in the right foot. I assisted with control of the bleeding with manual compression. Because of the large and tensehematoma I contacted vascular surgery for potential surgical evacuation of the bleed. The patient was uncomfortable and I administered intravenous fentanyl to control her pain. we gave her intravenous fluids given tachycardia and borderline blood pressure. Tino Gilmore MD * Op Note - Miles Ramos MD - 11/02/2024 8:44 PM EDT EXPLORATION, HEMATOMA Right Groin (R), REPAIR, PSEUDOANEURYSM (R) Operative Note Date: 11/02/2024 Location: [facility] OR Name: Juan Kong, : 1990, Diagnosis * No Diagnosis Codes entered * * No Diagnosis Codes entered * Procedures * EXPLORATION, HEMATOMA Right Groin * REPAIR, PSEUDOANEURYSM Surgeons Primary: Jose Angel Fox MD Resident - Assisting: Miles Ramos MD Procedure Summary Anesthesia: General ASA: IV Estimated Blood Loss: 50mL Total IV Fluids: Please refer to anesthesia note Drains: Closed/Suction Drain Right;Anterior Groin 10 Fr. (Active) Dressing Status Clean;Dry 11/02/242135 Status To bulb suction 11/02/242135 Staff: Hair Worker: Elicia Small RN; Dimitri Hearn RN Scrub Person: Olga Ruiz, KITCHEN OPERATOR; Celeste Burroughs CST Indications: Juan Kong is an 34 y.o. female who is having surgery for Hematoma Right Groin. Patient underwent cardiac cath procedure with the cardiology team and has developed postoperative pseudoaneurysm with enlarging right groin hematoma. Risks and benefits explained to the patient regarding r ight groin hematoma evacuation. Oral and written written consent was obtained and ample time was given for questions. Procedure Details: The patient was seen in the preoperative [...] 1 hours of incision. Venous thrombosis prophylaxis have been ordered including bilateral sequential compression devices The patient was prepped and draped in usual sterile manner. Using a 10 blade, a diagnostic incisionwas created following the right inguinal crease over the 2 puncture site from the femoral artery sheaths from the cardiac cath procedures. The incision was carried down using Bovie electrocautery. Wecame across an extensive amount of coagulated blood, which were probably removed. Upon further dissection deep towards the femoral artery, we encountered multiple luminal defects with active arterialbleeding. The bleeding was controlled by clamping down the proximal and the distal aspect of the femoral artery using DeBakey forceps. Multiple 6-0 Prolene sutures were placed in a [id number] manner, across the femoral artery luminal defects to obtain hemostasis, taking careful attention not to backwall obstruct the femoral artery. Good hemostasis was witnessed and the incision was packed with thrombin Gelfoam. Next attention was towards the subcutaneous empty space formed by the previous hematoma. The empty space and the wound was thoroughly irrigated using normal saline. A 10 Iranian flat GONSALO drain was placed at the right lateral empty space and secured with 3-0 nylon suture. The thrombin Gelfoam was removed and good hemostasis was witnessed. The wound was closed in layers using 3-0 Vicryl in the deep spaces, and the skin was closed using 4-0 Monocryl in a subcuticular manner. [place] and Steri-Strips were applied. All counts were correct x 2 at the end of the procedure. Patient was awoken from anesthesia and transferred to PACU in good condition. Dr. Fox was scrubbed and present throughout the entirety of the procedure. Findings: Right groin hematoma secondary to artery defect from cardiac cath procedure. Hematoma evacuation and repair of femoral artery defect with Prolene sutures. Complications: None; patient tolerated the procedure well. Disposition: PACU - hemodynamically stable. Condition: stable Miles Ramos MD GS PGY-5 Cosigned by Jose Angel Fox MD at 11/05/2024 10:03 PM EDT * Care Plan - Patricia Butt RN - 11/02/2024 4:32 PM EDT The patient is Moderately Stable - Low risk of patient condition declining or worsening The patient's goals for the shift include DC The clinical goals for the shift include Hemodynamically stable, VSS, comfort, pain control Over the shift, the patient did not make progress toward the following goals. 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 The recurrence of chest pain and the prolonged QT interval on ECG further complicate dischargereadiness. The patient is also dependent on total parenteral nutrition (TPN) for protein-calorie malnutrition, and currently has a port in place for TPN administration. The history of gastroparesis and a recent infection of the jejunostomy tube complicates nutritional management, with plans for reinsertion of the tube in the near future. Additionally, the patient???s chronic conditions like diabetes, hypothyroidism, GERD, and asthma require ongoing medication adjustments and monitoring, which necessitate further evaluation before discharge. Recommendations to address these barriers include careful monitoring of the patient's cardiovascular status, including pain management, and ensuring the continuation of antiplatelet, statin, and beta-reece therapy as prescribed. Regular ECG monitoring is essential to assess for any changes in theQT interval. Nutrition support should continue with close coordination with the clinical dietitian,and attention to TPN management is critical. Ensure appropriate wound care for the port and continued monitoring for any signs of infection. Given the patient's history of gastroparesis, close attention to gastrointestinal symptoms and the plan for reinserted J-tube should be maintained. Lastly, pro vide patient education on the use of inhalers, diabetes management, and medication adherence. A multidisciplinary approach involving cardiology, nutrition, and respiratory therapy will be important for optimizing the patient???s discharge readiness. Problem: Pain - Adult Goal: Verbalizes/displays adequate comfort level or baseline comfort level 11/02/2024 1631 by Patricia Butt RN Outcome: Not Progressing 11/02/2024 1151 by Patricia Butt RN Outcome: Adequate for Discharge Problem: Cardiovascular - Adult Goal: Maintains optimal cardiac output and hemodynamic stability 11/02/2024 1631 by Patricia Butt RN Outcome: Not Progressing 11/02/2024 1151 by Patricia Butt RN Outcome: Adequate for Discharge Flowsheets (Taken 11/02/2024 0739) Maintains optimal cardiac output and hemodynamic stability: Monitor blood pressure and heart rate * Hospital Course - Josefina Marsib - 11/02/2024 1:32 PM EDT Juan is a 34 year old female who was transferred to [facility] from [place] on 10/30 for chest pain. PMH is significant for HTN, HLD, asthma, RICHAR, hypothyroidism, GERD, IBS, fibromyalgia, T2DM, median arcuate ligament syndrome s/p celiac plexus block and MALS release, morbid obesity s/p sleeve gastrectomy, extensive chronic adhesions and recurrent obstructions, and gastroparesis s/p multiple infusions and J-tube C/B infection and removal. She is on TPN. Patient states that after infusion of Benadryl and Compazine she began having sharp left-sided chest pain that radiated to left arm. She also had associated dizziness, shortness of breath, nausea, vomiting, which brought her to the hospital. At [place], chest xray showed mild fluid overload and troponin levels were at a high of 390. She was started on heparin infusion and repeat troponin was decreased at 337, continuing to downtrend. TTE was performed that showed mildly reduced ejection fraction 50 to 55% with wall motion abnormalities. Cardiology evaluated patient taken for a cath. Cardiology evaluated the patient and she underwentcardiac catheterization from radial approach that did show mild LAD disease however during this procedure she experienced radial artery spasms for which catheterization was aborted. She then underwent repeat catheterization from femoral access with IVUS that demonstrated focal spontaneous coronary a rtery disease type III and mid LAD with adequate coronary blood flow. for this it was recommended to have medical therapy with dual antiplatelet therapy including Plavix for 1 to 3 months and lifelong aspirin therapy. She had a total of 3 caths during this visit. Vascular was consulted shortly after because patient had an expanding hematoma s/p cardiac catherization procedure. She was taken for a hematoma evacuation on 11/02. Patient remained in SICU after, where she had urinary retention. Catheter was placed with a urology consult. Patient was transferred to the medicine floors on 11/06. She states that her chest pain is intermittent, at a 5/10. Repeat EKG and troponin were order. Cardiology recommends that patient continue Toprol 12.5 mg and Verapamil 40 mg with possibility of up titration. Patient also has leg pain due to recent evacuation procedure. She is on fentanyl patches, Marcellus, and will receive a one time dose of IVMorphine to control the pain. Patient is hemodynamically stable at this time. She is cleared for discharge from a medicine standpoint. Patient is to follow up with Cardiology and Urology in an outpatient setting. * Pre-Sedation Documentation - Janet Soto MD - 11/02/2024 1:31 PM EDT Patient: Juan Kong Procedure Information Date/Time: 11/02/24 384 Procedure: Coronary angiography (Bilateral) Location: [facility] ANIMAL CARE ASSISTANT 3 / [facility] (Cath) Providers: Wali Collins MD Clinical information reviewed: Allergies Meds Physical Exam Airway Mallampati: III TM distance: >3 FB Neck ROM: full Cardiovascular Rhythm: regular Rate: normal no weak pulses (-) peripheral edema, weak pulses Dental Pulmonary Breath sounds clear to auscultation Neurological Abdominal Anesthesia Plan ASA 3 (Moderate conscious sedation) Anesthetic plan and risks discussed with patient. Use of blood products discussed with patient who consented to blood products. Plan discussed with attending. Additional Equipment Requests Janet Soto MD Fire Crew Specialist, PGY-4 [facility] 11/02/24 1:31 PM Cosigned by Wali Collins MD at 11/02/2024 3:13 PM EDT * Assessment & Plan Note - Ky Ritter MD - 11/02/2024 1:29 PM EDT Associated Problem(s): NSTEMI (non-ST elevated myocardial infarction) ([facility]) -Trop 390 at OSH, now downward trending -Continue heparin gtt -TTE showing mildly reduced EF 50-55% with WMA -Cardiology consulted; cardiac catheterization from radial approach yesterday showing mild LAD disease however due to radial artery spasms catheterization was incomplete - repeat catheterization from femoral access 11/01 showing type III spontaneous coronary artery dissection for which she was placed on dual antiplatelet therapy, statin, beta-reece - due to recurrence of chest pain today patient brought urgently back to 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structor * Assessment & Plan Note - Ky Ritter MD - 11/02/2024 1:29 PM EDT Associated Problem(s): Spontaneous dissection of coronary artery -Trop 390 at OSH, now downward trending -Continue heparin gtt -TTE showing mildly reduced EF 50-55% with WMA -Cardiology consulted; cardiac catheterization from radial approach yesterday showing mild LAD disease however due to radial artery spasms catheterization was incomplete - repeat catheterization from femoral access 11/01 showing type III spontaneous coronary artery dissection for which she was placed on dual antiplatelet therapy, statin, beta-reece - due to recurrence of chest pain today patient brought urgently back to 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structor * Assessment & Plan Note - Ky Ritter MD - 11/02/2024 1:29 PM EDT Associated Problem(s): Prolonged Q-T interval on ECG -QT mildly prolonged; read as 492 ms however calculation revealing 429 -Okay with reglan * Assessment & Plan Note - Ky Ritter MD - 11/02/2024 1:29 PM EDT Associated Problem(s): Type 2 diabetes mellitus without complication, without long-term current useof insulin ([facility]) - Patient currently taking metformin at home -Continue ISS ACHS * Assessment & Plan Note - Ky Ritter MD - 11/02/2024 1:29 PM EDT Associated Problem(s): Protein calorie malnutrition -Patient currently requiring TPN -Port to her right chest -Clinical dietitian consult * Assessment & Plan Note - Ky Ritter MD - 11/02/2024 1:29 PM EDT Associated Problem(s): Gastroparesis - atient initially with a J-tube in place, however, the JG became infected and had to be taken out -Patient reports plan for reinsertion in the near future * Assessment & Plan Note - Ky Ritter MD - 11/02/2024 1:29 PM EDT Associated Problem(s): Median arcuate ligament syndrome - S/p celiac plexus block and then MALS release * Assessment & Plan Note - Ky Ritter MD - 11/02/2024 1:29 PM EDT Associated Problem(s): GERD (gastroesophageal reflux disease) -Continue PPI * Assessment & Plan Note - Ky Ritter MD - 11/02/2024 1:29 PM EDT Associated Problem(s): Acquired hypothyroidism - Continue levothyroxine * Assessment & Plan Note - Ky Ritter MD - 11/02/2024 1:29 PM EDT Associated Problem(s): Asthma - Continue albuterol inhaler as needed * Assessment & Plan Note - Ky Ritter MD - 11/02/2024 1:29 PM EDT Associated Problem(s): IBS (irritable bowel syndrome) - Stable * Assessment & Plan Note - Ky Ritter MD - 11/02/2024 1:29 PM EDT Associated Problem(s): S/P laparoscopic sleeve gastrectomy - Stable * Care Plan - Patricia Butt RN - 11/02/2024 11:51 AM EDT The patient is Moderately Stable - Low risk of patient condition declining or worsening The patient's goals for the shift include DC The clinical goals for the shift include Hemodynamically stable, VSS, comfort, pain control Over the shift, the patient did not make progress toward the following goals. Problem: Pain - Adult Goal: Verbalizes/displays adequate comfort level or baseline comfort level Outcome: Adequate for Discharge Problem: Safety - Adult Goal: Free from fall injury Outcome: Adequate for Discharge Flowsheets (Taken 11/02/2024738) Free from fall injury: Assess patient frequently for physical needs Problem: Discharge Planning Goal: Discharge to home or other facility with appropriate resources Outcome: Adequate for Discharge Flowsheets (Taken 11/02/2024738) Discharge to home or other facility with appropriate resources: Identify barriers to discharge withpatient and caregiver Problem: Chronic Conditions and Co-morbidities Goal: Patient's chronic conditions and co-morbidity symptoms are monitored and maintained or improved Outcome: Adequate for Discharge Flowsheets (Taken 11/02/2024738) Care Plan - Patient's Chronic Conditions and Co-Morbidity Symptoms are Monitored and Maintained or Improved: Monitor and assess patient's chronic conditions and comorbid symptoms for stability, deterioration, or improvement Problem: Skin/Tissue Integrity - Adult Goal: Skin integrity remains intact Outcome: Adequate for Discharge Flowsheets (Taken 11/02/2024738) Skin integrity remains intact: Monitor for areas of redness and/or skin breakdown Goal: Oral mucous membranes remain intact Outcome: Adequate for Discharge Flowsheets (Taken 11/02/2024738) Oral mucous membranes remain intact: Assess oral mucosa and hygiene practices Goal: Incisions, wounds, or drain sites healing without S/S of infection Outcome: Adequate for Discharge Flowsheets (Taken 11/02/2024738) Incisions, wounds, or drain sites healing without sign and symptoms of infection: ADMISSION and DAILY: Assess and document risk factors for pressure ulcer development Problem: Knowledge Deficit Goal: Patient/family/caregiver demonstrates understanding of disease process, treatment plan, medications, and discharge instructions Outcome: Adequate for Discharge Problem: Potential for Compromised Skin Integrity Goal: Skin Integrity is Maintained or Improved Outcome: Adequate for Discharge Goal: Nutritional status is improving Outcome: Adequate for Discharge Problem: Neurosensory - Adult Goal: Achieves stable or improved neurological status Outcome: Adequate for Discharge Flowsheets (Taken 11/02/2024738) Achieves stable or improved neurological status: Assess for and report changes in neurological status Goal: Absence of seizures Outcome: Adequate for Discharge Flowsheets (Taken 11/02/2024738) Absence of seizures: Monitor for seizure activity. If seizure occurs, document type and location ofmovements and any associated apnea Goal: Remains free of injury related to seizures activity Outcome: Adequate for Discharge Flowsheets (Taken 11/02/2024738) Remains free of injury related to seizure activity: Maintain airway, patient safety and administer oxygen as ordered Goal: Achieves maximal functionality and self care Outcome: Adequate for Discharge Flowsheets (Taken 11/02/2024738) Achieves maximal functionality and self care: Monitor swallowing and airway patency with patient fatigue and changes in neurological status Problem: Respiratory - Adult Goal: Achieves optimal ventilation and oxygenation Outcome: Adequate for Discharge Flowsheets (Taken 11/02/2024738) Achieves optimal ventilation and oxygenation: Assess for changes in respiratory status Problem: Cardiovascular - Adult Goal: Maintains optimal cardiac output and hemodynamic stability Outcome: Adequate for Discharge Flowsheets (Taken 11/02/2024738) Maintains optimal cardiac output and hemodynamic stability: Monitor blood pressure and heart rate Goal: Absence of cardiac dysrhythmias or at baseline Outcome: Adequate for Discharge Flowsheets (Taken 11/02/2024738) Absence of cardiac dysrhythmias or at baseline: Monitor cardiac rate and rhythm Problem: Musculoskeletal - Adult Goal: Return mobility to safest level of function Outcome: Adequate for Discharge Flowsheets (Taken 11/02/2024738) Return mobility to safest level of function: Assess patient stability and activity tolerance for standing, transferring and ambulating with or without assistive devices Goal: Maintain proper alignment of affected body part Outcome: Adequate for Discharge Flowsheets (Taken 11/02/2024738) Maintain proper alignment of affected body part: Support and protect limb and body alignment per provider's orders Goal: Return ADL status to a safe level of function Outcome: Adequate for Discharge Flowsheets (Taken 11/02/2024738) Return ADL status to a safe level of function: Administer medication as ordered Problem: Gastrointestinal - Adult Goal: Minimal or absence of nausea and vomiting Outcome: Adequate for Discharge Flowsheets (Taken 11/02/2024738) Minimal or absence of nausea and vomiting: Administer IV fluids as ordered to ensure adequate hydration Goal: Maintains or returns to baseline bowel function Outcome: Adequate for Discharge Flowsheets (Taken 11/02/2024738) Maintains or returns to baseline bowel function: Assess bowel function Goal: Maintains adequate nutritional intake Outcome: Adequate for Discharge Flowsheets (Taken 11/02/2024738) Maintains adequate nutritional intake: Monitor percentage of each meal consumed Goal: Establish and maintain optimal ostomy function Outcome: Adequate for Discharge Flowsheets (Taken 11/02/2024738) Establish and maintain optimal ostomy function: Monitor output from ostomies Problem: Genitourinary - Adult Goal: Absence of urinary retention Outcome: Adequate for Discharge Flowsheets (Taken 11/02/2024738) Absence of urinary retention: Assess patient???s ability to void and empty bladder Goal: Urinary catheter remains patent Outcome: Adequate for Discharge Flowsheets (Taken 11/02/2024738) Urinary catheter remains patent: Assess patency of urinary catheter Problem: Infection - Adult Goal: Absence of infection at discharge Outcome: Adequate for Discharge Flowsheets (Taken 11/02/2024738) Absence of infection at discharge: Assess and monitor for signs and symptoms of infection Goal: Absence of infection during hospitalization Outcome: Adequate for Discharge Goal: Absence of fever/infection during anticipated neutropenic period Outcome: Adequate for Discharge Flowsheets (Taken 11/02/2024738) Absence of fever/infection during anticipated neutropenic period: Monitor white blood cell count Problem: Metabolic/Fluid and Electrolytes - Adult Goal: Electrolytes maintained within normal limits Outcome: Adequate for Discharge Flowsheets (Taken 11/02/2024738) Electrolytes maintained within normal limits: Monitor labs and assess patient for signs and symptoms of electrolyte imbalances Goal: Hemodynamic stability and optimal renal function maintained Outcome: Adequate for Discharge Flowsheets (Taken 11/02/2024738) Hemodynamic stability and optimal renal function maintained: Monitor labs and assess for signs and symptoms of volume excess or deficit Goal: Glucose maintained within prescribed range Outcome: Adequate for Discharge Flowsheets (Taken 11/02/2024738) Glucose maintained within prescribed range: Monitor blood glucose as ordered Problem: Hematologic - Adult Goal: Maintains hematologic stability Outcome: Adequate for Discharge Flowsheets (Taken 11/02/2024738) Maintains hematologic stability: Assess for signs and symptoms of bleeding or hemorrhage * Significant Event - Karley Leslie RN - 11/02/2024 10:16 AM EDT 11/02/24 1012 Admission Assessment Questions Verify insurance with patient Yes Do you understand medical disease or what brought you into the hospital? Yes Who is your current PCP? Thomas Alas Can I schedule a follow up appointment for you at the time of discharge? Yes Does patient qualify for Complex Care Management Enrollment? No Do you understand why you are taking your current medications? Yes Are you taking your medications as prescribed? Yes Did patient provide teach back? No Pharmacy Bedside Delivery Status Interested Does the patient have a nurse outreach case manager assigned to them through their insurance? Yes Living Arrangement (Current/Prior to Hospitalization) Private residence (3 children in home) Does the patient have history of HHC or SNF? Yes (hx with hhc. No SNF hx) Assistive Device Not applicable Patient's goal for discharge To discharge home. Was patient reminded that goal for discharge is 11am? No Does the patient have transportation at discharge? Yes Type of Residence Private residence Is PT/OT appropriate? No Is PT/OT ordered? No Is SW consult appropriate? No Is SW consult ordered? No Do you understand the benefits of MyChart? Yes Were you able to send link and activate MyChart? MyChart already active * Care Plan - Fern Pierce RN - 11/02/2024 3:46 AM EDT The patient is Moderately Stable - Low risk of patient condition declining or worsening The patient's goals for the shift include comfort and rest The clinical goals for the shift include stable VS Heart cath done- showed sm dissection of coronary artery- to be medically managed. Cont on cyclic TPN 16 hours/day. Tolerating oral intake- nausea controlled with benadry and Tigan. Pain controlled with Marcellus and tramadol. * Care Plan - Patricia Butt RN - 11/01/2024 6:45 PM EDT The patient is Moderately Stable - Low risk of patient condition declining or worsening The patient's goals for the shift include Heart cath The clinical goals for the shift include Hemodynamically stable, VSS, comfort, pain control Over the shift, the patient did not make progress toward the following goals. Problem: Pain - Adult Goal: Verbalizes/displays adequate comfort level or baseline comfort level Outcome: Progressing Problem: Safety - Adult Goal: Free from fall injury Outcome: Progressing Flowsheets (Taken 11/01/2024755) Free from fall injury: Assess patient frequently for physical needs Problem: Discharge Planning Goal: Discharge to home or other facility with appropriate resources Outcome: Progressing Flowsheets (Taken 11/01/2024755) Discharge to home or other facility with appropriate resources: Identify barriers to discharge withpatient and caregiver Problem: Chronic Conditions and Co-morbidities Goal: Patient's chronic conditions and co-morbidity symptoms are monitored and maintained or improved Outcome: Progressing Flowsheets (Taken 11/01/2024755) Care Plan - Patient's Chronic Conditions and Co-Morbidity Symptoms are Monitored and Maintained or Improved: Monitor and assess patient's chronic conditions and comorbid symptoms for stability, deterioration, or improvement Problem: Skin/Tissue Integrity - Adult Goal: Skin integrity remains intact Outcome: Progressing Flowsheets (Taken 11/01/2024755) Skin integrity remains intact: Monitor for areas of redness and/or skin breakdown Goal: Oral mucous membranes remain intact Outcome: Progressing Flowsheets (Taken 11/01/2024755) Oral mucous membranes remain intact: Assess oral mucosa and hygiene practices Goal: Incisions, wounds, or drain sites healing without S/S of infection Outcome: Progressing Flowsheets (Taken 11/01/2024755) Incisions, wounds, or drain sites healing without sign and symptoms of infection: ADMISSION and DAILY: Assess and document risk factors for pressure ulcer development Problem: Knowledge Deficit Goal: Patient/family/caregiver demonstrates understanding of disease process, treatment plan, medications, and discharge instructions Outcome: Progressing Problem: Potential for Compromised Skin Integrity Goal: Skin Integrity is Maintained or Improved Outcome: Progressing Goal: Nutritional status is improving Outcome: Progressing Problem: Neurosensory - Adult Goal: Achieves stable or improved neurological status Outcome: Progressing Flowsheets (Taken 11/01/2024755) Achieves stable or improved neurological status: Assess for and report changes in neurological status Goal: Absence of seizures Outcome: Progressing Flowsheets (Taken 11/01/2024755) Absence of seizures: Monitor for seizure activity. If seizure occurs, document type and location ofmovements and any associated apnea Goal: Remains free of injury related to seizures activity Outcome: Progressing Flowsheets (Taken 11/01/2024755) Remains free of injury related to seizure activity: Maintain airway, patient safety and administer oxygen as ordered Goal: Achieves maximal functionality and self care Outcome: Progressing Flowsheets (Taken 11/01/2024755) Achieves maximal functionality and self care: Monitor swallowing and airway patency with patient fatigue and changes in neurological status Problem: Respiratory - Adult Goal: Achieves optimal ventilation and oxygenation Outcome: Progressing Flowsheets (Taken 11/01/2024755) Achieves optimal ventilation and oxygenation: Assess for changes in respiratory status Problem: Cardiovascular - Adult Goal: Maintains optimal cardiac output and hemodynamic stability Outcome: Progressing Flowsheets (Taken 11/01/2024755) Maintains optimal cardiac output and hemodynamic stability: Monitor blood pressure and heart rate Goal: Absence of cardiac dysrhythmias or at baseline Outcome: Progressing Flowsheets (Taken 11/01/2024755) Absence of cardiac dysrhythmias or at baseline: Monitor cardiac rate and rhythm Problem: Musculoskeletal - Adult Goal: Return mobility to safest level of function Outcome: Progressing Flowsheets (Taken 11/01/2024755) Return mobility to safest level of function: Assess patient stability and activity tolerance for standing, transferring and ambulating with or without assistive devices Goal: Maintain proper alignment of affected body part Outcome: Progressing Flowsheets (Taken 11/01/2024755) Maintain proper alignment of affected body part: Support and protect limb and body alignment per provider's orders Goal: Return ADL status to a safe level of function Outcome: Progressing Flowsheets (Taken 11/01/2024755) Return ADL status to a safe level of function: Administer medication as ordered Problem: Gastrointestinal - Adult Goal: Minimal or absence of nausea and vomiting Outcome: Progressing Flowsheets (Taken 11/01/2024755) Minimal or absence of nausea and vomiting: Administer IV fluids as ordered to ensure adequate hydration Goal: Maintains or returns to baseline bowel function Outcome: Progressing Flowsheets (Taken 11/01/2024755) Maintains or returns to baseline bowel function: Assess bowel function Goal: Maintains adequate nutritional intake Outcome: Progressing Flowsheets (Taken 11/01/2024755) Maintains adequate nutritional intake: Monitor percentage of each meal consumed Goal: Establish and maintain optimal ostomy function Outcome: Progressing Flowsheets (Taken 11/01/2024755) Establish and maintain optimal ostomy function: Monitor output from ostomies Problem: Genitourinary - Adult Goal: Absence of urinary retention Outcome: Progressing Flowsheets (Taken 11/01/2024755) Absence of urinary retention: Assess patient???s ability to void and empty bladder Goal: Urinary catheter remains patent Outcome: Progressing Flowsheets (Taken 11/01/2024755) Urinary catheter remains patent: Assess patency of urinary catheter Problem: Infection - Adult Goal: Absence of infection at discharge Outcome: Progressing Flowsheets (Taken 11/01/2024755) Absence of infection at discharge: Assess and monitor for signs and symptoms of infection Goal: Absence of infection during hospitalization Outcome: Progressing Goal: Absence of fever/infection during anticipated neutropenic period Outcome: Progressing Flowsheets (Taken 11/01/2024755) Absence of fever/infection during anticipated neutropenic period: Monitor white blood cell count Problem: Metabolic/Fluid and Electrolytes - Adult Goal: Electrolytes maintained within normal limits Outcome: Progressing Flowsheets (Taken 11/01/2024755) Electrolytes maintained within normal limits: Monitor labs and assess patient for signs and symptoms of electrolyte imbalances Goal: Hemodynamic stability and optimal renal function maintained Outcome: Progressing Flowsheets (Taken 11/01/2024755) Hemodynamic stability and optimal renal function maintained: Monitor labs and assess for signs and symptoms of volume excess or deficit Goal: Glucose maintained within prescribed range Outcome: Progressing Flowsheets (Taken 11/01/2024755) Glucose maintained within prescribed range: Monitor blood glucose as ordered Problem: Hematologic - Adult Goal: Maintains hematologic stability Outcome: Progressing Flowsheets (Taken 11/01/2024755) Maintains hematologic stability: Assess for signs and symptoms of bleeding or hemorrhage * Pre-Sedation Documentation - Janet Soto MD - 11/01/2024 12:11 PM EDT Patient: Juan Kong Procedure Information Date/Time: 11/01/24 1300 Procedure: Coronary angiography Location: [facility] 3 / [facility] (Cath) Providers: Mitchell Agustin MD Clinical information reviewed: Allergies Meds Physical Exam Airway Mallampati: III TM distance: >3 FB Neck ROM: limited Cardiovascular Rhythm: regular Rate: normal (-) peripheral edema, JVD Dental Pulmonary Breath sounds clear to auscultation Neurological Abdominal (+) obese Other findings: TPN catheter noted Anesthesia Plan ASA 3 (Moderate conscious sedation) Anesthetic plan and risks discussed with patient. Use of blood products discussed with patient who consented to blood products. Plan discussed with attending. 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 catheterization was incomplete - planning for repeat catheterization today from femoral access * Assessment & Plan Note - Ky Ritter MD - 11/01/2024 11:57 AM EDT Associated Problem(s): Prolonged Q-T interval on ECG -QT mildly prolonged; read as 492 ms however calculation revealing 429 -Okay with reglan -Obtain repeat EKG today * Assessment & Plan Note - Ky Ritter MD - 11/01/2024 7:33 AM EDT Associated Problem(s): Type 2 diabetes mellitus without complication, without long-term current useof insulin (CMS/HCC) - Patient currently taking metformin at home -Continue ISS ACHS * Assessment & Plan Note - Ky Ritter MD - 11/01/2024 7:33 AM EDT Associated Problem(s): Protein calorie malnutrition -Patient currently requiring TPN -Port to her right chest -Clinical dietitian consult * Assessment & Plan Note - Ky Ritter MD - 11/01/2024 7:33 AM EDT Associated Problem(s): Gastroparesis - atient initially with a J-tube in place, however, the JG became infected and had to be taken out -Patient reports plan for reinsertion in the near future * Assessment & Plan Note - Ky Ritter MD - 11/01/2024 7:33 AM EDT Associated Problem(s): Median arcuate ligament syndrome - S/p celiac plexus block and then MALS release * Assessment & Plan Note - Ky Ritter MD - 11/01/2024 7:33 AM EDT Associated Problem(s): GERD (gastroesophageal reflux disease) -Continue PPI * Assessment & Plan Note - yK Ritter MD - 11/01/2024 7:33 AM EDT Associated Problem(s): Acquired hypothyroidism - Continue levothyroxine * Assessment & Plan Note - Ky Ritter MD - 11/01/2024 7:33 AM EDT Associated Problem(s): Asthma - Continue albuterol inhaler as needed * Assessment & Plan Note - Ky Ritter MD - 11/01/2024 7:33 AM EDT Associated Problem(s): IBS (irritable bowel syndrome) - Stable * Assessment & Plan Note - Ky Ritter MD - 11/01/2024 7:33 AM EDT Associated Problem(s): S/P laparoscopic sleeve gastrectomy - Stable * Care Plan - Fern Pierce RN - 11/01/2024 4:08 AM EDT The patient is Moderately Stable - Low risk of patient condition declining or worsening The patient's goals for the shift include comfort and rest The clinical goals for the shift include stable VS Heart cath done but unable to see R side of heart-no occlusions on L. No pain med required po-has fentanl patch. TPN started. Tigan/benadryl given once with decrease in nausea. * Pre-Sedation Documentation - Janet Soto MD - 10/31/2024 4:21 PM EDT Patient: Juan Kong Procedure Information Date/Time: 10/31/24 1330 Procedure: Coronary angiography Location: [facility] 3 / [facility] (Cath) Providers: Tino Gilmore MD Clinical information reviewed: Allergies Meds Physical Exam Airway Mallampati: III TM distance: >3 FB Neck ROM: full Cardiovascular Rhythm: regular Rate: normal no weak pulses (-) murmur, peripheral edema, systolic click, weak pulses Dental Pulmonary Breath sounds clear to auscultation Neurological Abdominal Anesthesia Plan ASA 3 (Moderate sedation) Anesthetic plan and risks discussed with patient. Use of blood products discussed with patient who consented to blood products. Plan discussed with attending. Additional Equipment Requests Cosigned by Tino Gilmore MD at 10/31/2024 6:36 PM EDT * Assessment & Plan Note - Ky Ritter MD - 10/31/2024 11:15 AM EDT Associated Problem(s): Prolonged Q-T interval on ECG -QT mildly prolonged -Continue Tigan for now and avoid other QT prolonging agents * Assessment & Plan Note - Ky Ritter MD - 10/31/2024 11:15 AM EDT Associated Problem(s): Type 2 diabetes mellitus without complication, without long-term current useof insulin ([facility]) - Patient currently taking metformin at home -Continue ISS ACHS * Assessment & Plan Note - Ky Ritter MD - 10/31/2024 11:15 AM EDT Associated Problem(s): Protein calorie malnutrition -Patient currently requiring TPN -Port to her right chest -Clinical dietitian consult * Assessment & Plan Note - Ky Ritter MD - 10/31/2024 11:15 AM EDT Associated Problem(s): Gastroparesis - atient initially with a J-tube in place, however, the JG became infected and had to be taken out -Patient reports plan for reinsertion in the near future * Assessment & Plan Note - Ky Ritter MD - 10/31/2024 11:15 AM EDT Associated Problem(s): IBS (irritable bowel syndrome) - Stable * Assessment & Plan Note - Ky Ritter MD - 10/31/2024 11:15 AM EDT Associated Problem(s): NSTEMI (non-ST elevated myocardial infarction) ([facility]) -Trop 390 at OSH, now downward trending -Continue heparin gtt -Cardiology consulted -Pending TTE, cath * Care Plan - Jami Bridges RN - 10/31/2024 10:42 AM EDT The patient is Moderately Stable - Low risk of patient condition declining or worsening The patient's goals for the shift include comfort and rest The clinical goals for the shift include stable VS Over the shift, the patient did not make progress toward the following goals. Barriers to progression include. Recommendations to address these barriers include. * Assessment & Plan Note - Ky Ritter MD - 10/31/2024 7:18 AM EDT Associated Problem(s): Median arcuate ligament syndrome - S/p celiac plexus block and then MALS release * Assessment & Plan Note - Ky Ritter MD - 10/31/2024 7:18 AM EDT Associated Problem(s): GERD (gastroesophageal reflux disease) -Continue PPI * Assessment & Plan Note - Ky Ritter MD - 10/31/2024 7:18 AM EDT Associated Problem(s): Acquired hypothyroidism - Continue levothyroxine * Assessment & Plan Note - Ky Ritter MD - 10/31/2024 7:18 AM EDT Associated Problem(s): Asthma - Continue albuterol inhaler as needed * Assessment & Plan Note - Ky Ritter MD - 10/31/2024 7:18 AM EDT Associated Problem(s): S/P laparoscopic sleeve gastrectomy - Stable * Assessment & Plan Note - Debbie Luna CNP - 10/30/2024 9:00 PM EDTAssociated Problem(s): Chest pain - Troponin 390 at outside hospital, repeat of 337 -Continue IV heparin infusion -N.p.o. midnight for possible intervention -EKG shows sinus rhythm with occasional PVCs and a prolonged QT -Optimize electrolytes -Cardiology consultation * Assessment & Plan Note - Debbie Luna CNP - 10/30/2024 9:00 PM EDTAssociated Problem(s): GERD (gastroesophageal reflux disease) -Continue PPI * Assessment & Plan Note - Debbie Luna CNP - 10/30/2024 9:00 PM EDTAssociated Problem(s): Protein calorie malnutrition - Patient currently requiring TPN -Port to her right chest -Clinical dietitian consult- * Assessment & Plan Note - Debbie Luna CNP - 10/30/2024 9:00 PM EDTAssociated Problem(s): Gastroparesis - Patient initially with a J-tube in place, however, the JG became infected and had to be taken out -Patient reports plan for reinsertion in the near future * Assessment & Plan Note - Debbie Luna CNP - 10/30/2024 9:00 PM EDTAssociated Problem(s): Acquired hypothyroidism - Continue levothyroxine * Assessment & Plan Note - Debbie Luna CNP - 10/30/2024 9:00 PM EDTAssociated Problem(s): Type 2 diabetes mellitus without complication, without long-term current useof insulin ([facility]) - Patient currently taking metformin at home, will begin ISS, ACHS * Assessment & Plan Note - Debbie Luna CNP - 10/30/2024 9:00 PM EDTAssociated Problem(s): Asthma - Continue albuterol inhaler as needed * Assessment & Plan Note - Debbie Luna CNP - 10/30/2024 9:00 PM EDTAssociated Problem(s): IBS (irritable bowel syndrome) - Stable, last BM yesterday * Assessment & Plan Note - Debbie Luna CNP - 10/30/2024 9:00 PM EDTAssociated Problem(s): Median arcuate ligament syndrome - S/p celiac plexus block and then MALS release * Assessment & Plan Note - Debbie Luna CNP - 10/30/2024 9:00 PM EDTAssociated Problem(s): S/P laparoscopic sleeve gastrectomy - Stable * Assessment & Plan Note - Debbie Luna CNP - 10/30/2024 9:00 PM EDTAssociated Problem(s): Prolonged Q-T interval on ECG - QT prolonged on EKG, will hold all QT prolonging agents -Recommend repeat EKG in a.m. documented in this encounter Plan of Treatment Upcoming Encounters Date Type Department Care Team (Late st Contact Info) Description 11/20/2024 2:30 PM EDT Follow-Up [facility] Vascular and Endovascular Surgery [address] [place] [address] Delphine Du NP [address] [place] [address] 11/28/2024 11:00 AM EDT Follow-Up [facility] Cardiology [address] [place] [address] [place] [address] Wali Collins MD [address] [place] [address] 12/04/2024 10:00 AM EDT Office Visit [facility] Heart at [facility] [address] [place] [address] Katie Altamirano MD [address] [facility] [place] [address] documented as of this encounter Procedures Procedure Name Priority Date/Time Associated Diagnosis Comments POCT GLUCOSE METER UNSOLICITED RESULTS Routine 11/07/2024 4:00 PM EDT POCT GLUCOSE METER UNSOLICITED RESULTS Routine 11/07/2024 11:55 AM EDT ECG 12-LEAD Routine 11/07/2024 11:48 AM EDT POCT GLUCOSE METER UNSOLICITED RESULTS Routine 11/07/2024 7:43 AM EDT CBC STAT 11/07/2024 6:27 AM EDT HIGH SENSITIVITY TROPONIN I STAT Add-on 11/07/2024 4:50 AM EDT PHOSPHORUS Routine 11/07/2024 4:50 AM EDT MAGNESIUM Routine 11/07/2024 4:50 AM EDT CALCIUM, IONIZED Routine 11/07/2024 4:50 AM EDT BASIC METABOLIC PANEL Routine 11/07/2024 4:50 AM EDT POCT GLUCOSE METER UNSOLICITED RESULTS Routine 11/06/2024 10:59 PM EDT POCT GLUCOSE METER UNSOLICITED RESULTS Routine 11/06/2024 8:22 PM EDT POCT GLUCOSE METER UNSOLICITED RESULTS Routine 11/06/2024 5:05 PM EDT CALCIUM, IONIZED Pending Discharge 11/06/2024 12:24 PM EDT POCT GLUCOSE METER UNSOLICITED RESULTS Routine 11/06/2024 12:19 PM EDT VASC US LOWER EXTREMITY PSEUDOANEURYSM DUPLEX RIGHT Routine 11/06/2024 8:24 AM EDT POCT GLUCOSE METER UNSOLICITED RESULTS Routine 11/06/2024 7:52 AM EDT CBC WITH AUTO DIFFERENTIAL Pending Discharge 11/06/2024 5:50 AM EDT CBC AND DIFFERENTIAL Routine 11/06/2024 5:50 AM EDT PHOSPHORUS Pending Discharge 11/06/2024 5:50 AM EDT MAGNESIUM Pending Discharge 11/06/2024 5:50 AM EDT BASIC METABOLIC PANEL Pending Discharge 11/06/2024 5:50 AM EDT POCT GLUCOSE METER UNSOLICITED RESULTS Routine 11/05/2024 10:07 PM EDT POCT GLUCOSE METER UNSOLICITED RESULTS Routine 11/05/2024 4:37 PM EDT POCT GLUCOSE METER UNSOLICITED RESULTS Routine 11/05/2024 11:36 AM EDT HEMOGLOBIN AND HEMATOCRIT, BLOOD Pending Discharge 11/05/2024 9:01 AM EDT POCT GLUCOSE METER UNSOLICITED RESULTS Routine 11/05/2024 8:36 AM EDT CBC Pending Discharge 11/05/2024 3:48 AM EDT PHOSPHORUS Pending Discharge 11/05/2024 3:48 AM EDT MAGNESIUM Pending Discharge 11/05/2024 3:48 AM EDT BASIC METABOLIC PANEL Pending Discharge 11/05/2024 3:48 AM EDT CALCIUM, IONIZED Pending Discharge 11/05/2024 1:00 AM EDT HEMOGLOBIN AND HEMATOCRIT, BLOOD Pending Discharge 11/05/2024 12:54 AM EDT POCT GLUCOSE METER UNSOLICITED RESULTS Routine 11/04/2024 10:33 PM EDT BASIC METABOLIC PANEL STAT Add-on 11/04/2024 8:17 PM EDT HEMOGLOBIN AND HEMATOCRIT, BLOOD Pending Discharge 11/04/2024 8:13 PM EDT POCT GLUCOSE METER UNSOLICITED RESULTS Routine 11/04/2024 5:12 PM EDT TRANSFUSE RED BLOOD CELLS Routine 11/04/2024 2:34 PM EDT ECG 12-LEAD STAT 11/04/2024 1:59 PM EDT HIGH SENSITIVITY TROPONIN I STAT 11/04/2024 1:38 PM EDT HEMOGLOBIN AND HEMATOCRIT, BLOOD Pending Discharge 11/04/2024 1:38 PM EDT BASIC METABOLIC PANEL STAT 11/04/2024 1:38 PM EDT POCT GLUCOSE METER UNSOLICITED RESULTS Routine 11/04/2024 1:06 PM EDT CTA ABDOMEN PELVIS W IV CONTRAST Routine 11/04/2024 12:48 PM EDT POCT GLUCOSE METER UNSOLICITED RESULTS Routine 11/04/2024 9:20 AM EDT POCT GLUCOSE METER UNSOLICITED RESULTS Routine 11/04/2024 5:10 AM EDT CBC Pending Discharge 11/04/2024 5:05 AM EDT PHOSPHORUS Pending Discharge 11/04/2024 5:05 AM EDT MAGNESIUM Pending Discharge 11/04/2024 5:05 AM EDT CALCIUM, IONIZED Pending Discharge 11/04/2024 5:05 AM EDT BASIC METABOLIC PANEL Pending Discharge 11/04/2024 5:05 AM EDT POCT GLUCOSE METER UNSOLICITED RESULTS Routine 11/04/2024 12:12 AM EDT HEMOGLOBIN AND HEMATOCRIT, BLOOD Pending Discharge 11/04/2024 12:09 AM EDT POCT GLUCOSE METER UNSOLICITED RESULTS Routine 11/03/2024 9:52 PM EDT HEMOGLOBIN AND HEMATOCRIT, BLOOD Pending Discharge 11/03/2024 6:34 PM EDT POCT GLUCOSE METER UNSOLICITED RESULTS Routine 11/03/2024 5:35 PM EDT CBC Pending Discharge 11/03/2024 1:23 PM EDT POCT GLUCOSE METER UNSOLICITED RESULTS Routine 11/03/2024 11:35 AM EDT POCT GLUCOSE METER UNSOLICITED RESULTS Routine 11/03/2024 7:46 AM EDT CBC Pending Discharge 11/03/2024 4:46 AM EDT PHOSPHORUS Pending Discharge 11/03/2024 4:46 AM EDT MAGNESIUM Pending Discharge 11/03/2024 4:46 AM EDT CALCIUM, IONIZED Pending Discharge 11/03/2024 4:46 AM EDT BASIC METABOLIC PANEL Pending Discharge 11/03/2024 4:46 AM EDT HEPTEM C Routine 11/03/2024 1:58 AM EDT FIBTEM C Routine 11/03/2024 1:58 AM EDT EXTEM C Routine 11/03/2024 1:58 AM EDT INTEM C Routine 11/03/2024 1:58 AM EDT PROTIME-INR STAT 11/03/2024 12:07 AM EDT FIBRINOGEN STAT 11/03/2024 12:07 AM EDT CBC STAT 11/03/2024 12:07 AM EDT PHOSPHORUS STAT 11/03/2024 12:07 AM EDT MAGNESIUM STAT 11/03/2024 12:07 AM EDT BASIC METABOLIC PANEL STAT 11/03/2024 12:07 AM EDT POCT GLUCOSE METER UNSOLICITED RESULTS Routine 11/02/2024 10:48 PM EDT TRANSFUSE RED BLOOD CELLS Routine 11/02/2024 9:30 PM EDT TRANSFUSE RED BLOOD CELLS Routine 11/02/2024 9:10 PM EDT REPAIR, PSEUDOANEURYSM 11/02/2024 8:44 PM EDT Hematoma Right Groin EXPLORATION, HEMATOMA 11/02/2024 8:44 PM EDT Hematoma Right Groin POCT GLUCOSE METER UNSOLICITED RESULTS Routine 11/02/2024 8:30 PM EDT PREPARE RBC Routine 11/02/2024 8:05 PM EDT PREPARE RBC Routine 11/02/2024 8:05 PM EDT CBC Pending Discharge 11/02/2024 8:02 PM EDT TYPE AND SCREEN Pending Discharge 11/02/2024 8:02 PM EDT EXTRA TUBES Routine 11/02/2024 8:00 PM EDT RED TOP Routine 11/02/2024 8:00 PM EDT ACTIVATED CLOTTING TIME Routine 11/02/2024 4:43 PM EDT POCT ACTIVATED CLOTTING TIME Routine 11/02/2024 4:40 PM EDT POCT ACTIVATED CLOTTING TIME Routine 11/02/2024 4:19 PM EDT ACTIVATED CLOTTING TIME Routine 11/02/2024 4:13 PM EDT ACTIVATED CLOTTING TIME Routine 11/02/2024 2:56 PM EDT INSTANT WAVE FREE RATIO (IFR) Routine 11/02/2024 2:53 PM EDT Spontaneous dissection of coronary artery ULTRASOUND - CORONARY Routine 11/02/2024 2:53 PM EDT Spontaneous dissection of coronary artery CORONARY ANGIOGRAPHY Routine 11/02/2024 2:53 PM EDT Spontaneous dissection of coronary artery ACTIVATED CLOTTING TIME Routine 11/02/2024 2:24 PM EDT ECG 12-LEAD STAT 11/02/2024 1:18 PM EDT HIGH SENSITIVITY TROPONIN I STAT 11/02/2024 1:01 PM EDT POCT GLUCOSE METER UNSOLICITED RESULTS Routine 11/02/2024 11:07 AM EDT POCT GLUCOSE METER UNSOLICITED RESULTS Routine 11/02/2024 7:31 AM EDT EXTRA TUBES Routine 11/02/2024 6:15 AM EDT LIGHT GREEN TOP Routine 11/02/2024 6:15 AM EDT CBC Pending Discharge 11/02/2024 6:15 AM EDT POCT GLUCOSE METER UNSOLICITED RESULTS Routine 11/01/2024 8:42 PM EDT POCT GLUCOSE METER UNSOLICITED RESULTS Routine 11/01/2024 6:04 PM EDT ACTIVATED CLOTTING TIME Routine 11/01/2024 4:36 PM EDT POCT ACTIVATED CLOTTING TIME Routine 11/01/2024 4:33 PM EDT ULTRASOUND - CORONARY Routine 11/01/2024 1:30 PM EDT NSTEMI (non-ST elevated myocardial infarction) (CMS/HCC) CORONARY ANGIOGRAPHY Routine 11/01/2024 1:30 PM EDT NSTEMI (non-ST elevated myocardial infarction) (CMS/HCC) ACTIVATED CLOTTING TIME Routine 11/01/2024 1:27 PM EDT ACTIVATED CLOTTING TIME Routine 11/01/2024 1:14 PM EDT ECG 12-LEAD Routine 11/01/2024 12:09 PM EDT POCT GLUCOSE METER UNSOLICITED RESULTS Routine 11/01/2024 11:30 AM EDT CBC STAT 11/01/2024 10:10 AM EDT BASIC METABOLIC PANEL Pending Discharge 11/01/2024 10:10 AM EDT POCT GLUCOSE METER UNSOLICITED RESULTS Routine 11/01/2024 7:43 AM EDT HIGH SENSITIVITY TROPONIN I Timed 11/01/2024 6:42 AM EDT ANTI-FACTOR XA Pending Discharge 11/01/2024 6:04 AM EDT POCT GLUCOSE METER UNSOLICITED RESULTS Routine 11/01/2024 6:02 AM EDT TOXICOLOGY PANEL URINE Routine 11/01/2024 2:12 AM EDT POCT GLUCOSE METER UNSOLICITED RESULTS Routine 10/31/2024 8:20 PM EDT LEFT HEART CATH Routine 10/31/2024 7:34 PM EDT NSTEMI (non-ST elevated myocardial infarction) (CMS/HCC) CORONARY ANGIOGRAPHY Routine 10/31/2024 7:34 PM EDT NSTEMI (non-ST elevated myocardial infarction) (CMS/HCC) POCT GLUCOSE METER UNSOLICITED RESULTS Routine 10/31/2024 11:55 AM EDT LIMITED ECHO (TTE) W/ COLOR FLOW AND IMAGING AGENT Routine 10/31/2024 11:40 AM EDT ECG 12-LEAD Routine 10/31/2024 8:47 AM EDT ECG 12-LEAD Routine 10/31/2024 8:25 AM EDT POCT GLUCOSE METER UNSOLICITED RESULTS Routine 10/31/2024 7:22 AM EDT HIGH SENSITIVITY TROPONIN I Timed 10/31/2024 6:27 AM EDT ANTI-FACTOR XA Routine 10/31/2024 6:27 AM EDT CBC Routine 10/31/2024 6:27 AM EDT MAGNESIUM Add-On 10/31/2024 6:27 AM EDT HEMOGLOBIN A1C Add-On 10/31/2024 6:27 AM EDT LIPID PANEL Add-On 10/31/2024 6:27 AM EDT BASIC METABOLIC PANEL Routine 10/31/2024 6:27 AM EDT HIGH SENSITIVITY TROPONIN I Timed 10/31/2024 1:38 AM EDT ANTI-FACTOR XA Routine 10/31/2024 1:38 AM EDT POCT GLUCOSE METER UNSOLICITED RESULTS Routine 10/30/2024 9:12 PM EDT ECG 12-LEAD STAT 10/30/2024 8:00 PM EDT HIGH SENSITIVITY TROPONIN I STAT 10/30/2024 7:11 PM EDT TSH3 REFLEX TO FT4 STAT 10/30/2024 7: 11 PM EDT CBC WITH AUTO DIFFERENTIAL STAT 10/30/2024 7:11 PM EDT APTT STAT 10/30/2024 7:11 PM EDT PROTIME-INR STAT 10/30/2024 7:11 PM EDT ANTI-FACTOR XA STAT Add-on 10/30/2024 7:11 PM EDT CBC AND DIFFERENTIAL STAT 10/30/2024 7:11 PM EDT PHOSPHORUS STAT 10/30/2024 7:11 PM EDT B-TYPE NATRIURETIC PEPTIDE STAT 10/30/2024 7:11 PM EDT MAGNESIUM STAT 10/30/2024 7:11 PM EDT COMPREHENSIVE METABOLIC PANEL STAT 10/30/2024 7:11 PM EDT documented in this encounter Results * (ABNORMAL) POCT glucose meter (11/07/2024 4:00 PM EDT) Glucose POC 106(H) 70 - 105 mg/dL 11/07/2024 4:12 PM EDT [facility] ([facility]) Comment:[email or web address] Blood Capillary blood specimen / Unknown 11/07/2024 4:00 PM EDT 11/07/2024 4:12 PM EDT Narrative [facility] ([facility]) - 11/07/2024 4:12 PM EDT Waived Testing in the ED is performed under the ED CLIA certificate #[id number]. us Mauricio Garcia MD LAB BLOOD ORDERABLES Final Resu lt Performing Organization Address City/State/[facility] Co de Phone Number [facility] ([facility]) [address] [place] [address] * (ABNORMAL) POCT glucose meter (11/07/2024 11:55 AM EDT) Glucose POC 121(H) 70 - 105 mg/dL 11/07/2024 12:06 PM EDT [facility] ([facility]) Comment:[email or web address] Blood Capillary blood specimen / Unknown 11/07/2024 11:55 AM EDT 11/07/2024 12:06 PM EDT [facility] ([facility]) - 11/07/2024 12:06 PM EDT Waived Testing in the ED is performed under the ED CLIA certificate #[id number]. us Mauricio Garcia MD LAB BLOOD ORDERABLES Final Resu lt [facility] ([facility]) [address] [place] [address] * ECG 12 lead (11/07/2024 11:48 AM EDT) Ventricular Rate 91 BPM GE MUSE Atrial Rate 91 BPM GE MUSE MA Interval 134 ms GE MUSE QRS DURATION 88 ms GE MUSE QT Interval 386 ms GE MUSE QTC CALCULATION(BAZE TT) 474 ms GE MUSE P [place] 63 degrees GE MUSE R-[place] 35 degrees GE MUSE T Wave [place] 46 degrees GE MUSE 11/07/2024 11:3 3 AM EDT 11/07/2024 11:05 PM EDT Impressions GE [facility]USE - 11/07/2024 11:05 PM EDT Sinus rhythm with PVCs Otherwise normal ECG When compared with ECG of 04-NOV-2024 13:40, PVCs are now Present Confirmed by Griffin Diaz ([id number]) on 11/07/2024 11:05:14 PM Narrative Procedure Note Jonelle Harrison MD - 11/07/2024 IMPRESSION: Sinus rhythm with PVCs Otherwise normal ECG When compared with ECG of 04-NOV-2024 13:40, PVCs are now Present Confirmed by Griffin Diaz ([id number]) on 11/07/2024 11:05:14 PM Mauricio Garcia MD ECG ORDERABLES Final Result Performing Organization Address City/[facility]/ZIP Co de Phone Number [facility] * (ABNORMAL) POCT glucose meter (11/07/2024 7:43 AM EDT) Glucose POC 118(H) 70 - 105 mg/dL 11/07/2024 7:58 AM EDT [facility] ([facility]) Comment:[email or web address] Blood Capillary blood specimen / Unknown 11/07/2024 7:43 AM EDT 11/07/2024 7:58 AM EDT Narrative [facility] ([facility]) - 11/07/2024 7:58 AM EDT Waived Testing in the ED is performed under the ED CLIA certificate #[id number]. us Mauricio Garcia MD LAB BLOOD ORDERABLES Final Resu lt [facility] ([facility]) [address] [place] [address] * (ABNORMAL) CBC (11/07/2024 6:27 AM EDT) Auto WBC 4.21 4.00 - 10.60 10*3/uL 11/07/2024 7:01 AM EDT [facility] ([facility]) RBC 3.01(L) 3.80 - 5.00 10*6/uL 11/07/2024 7:01 AM EDT [facility] ([facility]) Hemoglobin 9.0(L) 12.0 - 15.0 g/dL 11/07/2024 7:01 AM EDT [facility] ([facility]) Hematocrit 26.9(L) 36.0 - 45.0 % 11/07/2024 7:01 AM EDT [facility] ([facility]) MCV 89.4 82.0 - 98.0 fL 11/07/2024 7:01 AM EDT [facility] ([facility]) MCH 29.9 27.0 - 33.0 pg 11/07/2024 7:01 AM EDT [facility] ([facility]) MCHC 33.5 32.0 - 35.0 g/dL 11/07/2024 7:01 AM EDT [facility] ([facility]) RDW 14.2 11.5 - 15.0 % 11/07/2024 7:01 AM EDT [facility] ([facility]) Platelets 206 150 - 400 10*3/uL 11/07/2024 7:01 AM EDT [facility] ([facility]) Blood Venous blood specimen / Unknown Existing Catheter / Unknown 11/07/2024 6:27 AM EDT 11/07/2024 6:45 AM EDT us Dominic Chappell DO LAB BLOOD ORDERABLES Final Re sult [facility] ([facility]) [address] [place] [address] * High Sensitivity Troponin I (11/07/2024 4:50 AM EDT) High Sensitivity Troponin I 10 <15 ng/L 11/07/2024 1:15 PM EDT [facility] ([facility]) Blood Venous blood specimen / Unknown Existing Catheter / Unknown 11/07/2024 4:50 AM EDT 11/07/2024 5:24 AM EDT us Mauricio Garcia MD LAB BLOOD ORDERABLES Final Resu lt [facility]) [address] [place] [address] * Calcium, ionized (11/07/2024 4:50 AM EDT) [facility] Calcium, Ion 1.16 1.15 - 1.33 mmol/L 11/07/2024 5:43 AM EDT [facility] RESPIRATORY THERAPY Blood Venous blood specimen / Unknown Existing Catheter / Unknown 11/07/2024 4:50 AM EDT 11/07/2024 5:38 AM EDT us Eduarda Bravo PA-C LAB BLOOD ORDERABLES Final Resu lt [facility] RESPIRATORY THERAPY [address] [place] [address], [place] * Phosphorus (11/07/2024 4:50 AM EDT) Phosphorus 4.7 2.5 - 5.0 mg/dL 11/07/2024 5:52 AM EDT [facility] ([facility]) Blood Venous blood specimen / Unknown Existing Catheter / Unknown 11/07/2024 4:50 AM EDT 11/07/2024 5:24 AM EDT us Rosa E Case PA-C LAB BLOOD ORDERABLES Final R esult Performing Organization Address City/[facility]/ZIP Co de Phone Number [facility] ([facility]) [address] [place] [address] * Magnesium (11/07/2024 4:50 AM EDT) Magnesium 2.1 1.9 - 2.7 mg/dL 11/07/2024 5:52 AM EDT [facility] ([facility]) Blood Venous blood specimen / Unknown Existing Catheter / Unknown 11/07/2024 4:50 AM EDT 11/07/2024 5:24 AM EDT Rosa INMAN-C LAB BLOOD ORDERABLES Final R esult Performing Organization Address City/[facility]/ZIP Co de Phone Number [facility] ([facility]) [address] [place], [place] [id number] * (ABNORMAL) Basic metabolic panel (11/07/2024 4:50 AM EDT) Sodium 139 136 - 145 mmol/L 11/07/2024 5:52 AM EDT [facility] ([facility]) Potassium 3.9 3.5 - 5.1 mmol/L 11/07/2024 5:52 AM EDT [facility] ([facility]) Chloride 105 98 - 107 mmol/L 11/07/2024 5:52 AM EDT [facility] ([facility]) CO2 28 21 - 31 mmol/L 11/07/2024 5:52 AM EDT [facility] ([facility]) BUN 14 7 - 25 mg/dL 11/07/2024 5:52 AM EDT [facility] ([facility]) Creatinine 0.52(L) 0.60 - 1.20 mg/dL 11/07/2024 5:52 AM EDT [facility] ([facility]) Glucose 87 70 - 100 mg/dL 11/07/2024 5:52 AM EDT [facility] ([facility]) Calcium 8.3(L) 8.6 - 10.3 mg/dL 11/07/2024 5:52 AM EDT [facility] ([facility]) Anion Gap 10 7 - 20 mmol/L 11/07/2024 5:52 AM EDT [facility] ([facility]) eGFR 124.2 >60.0 mL/min/1. 73m*2 11/07/2024 5:52 AM EDT [facility] ([facility]) Comment:[facility] s estimated glomerular filtration rate (eGFR) will [...] any one group of individuals. BUN/Creatinine Ratio 26.9 10/17 5:52 AM EDT [facility] ([facility]) Blood Venous blood specimen / Unknown Existing Catheter / Unknown 11/07/2024 4:50 AM EDT 11/07/2024 5:24 AM EDT us Rosa Willoughby PA-C LAB BLOOD ORDERABLES Final R esult [facility] ([facility]) [address] [place], [place] [id number] * (ABNORMAL) POCT glucose meter (11/06/2024 10:59 PM EDT) Glucose POC 134(H) 70 - 105 mg/dL 11/06/2024 11:10 PM EDT [facility] ([facility]) Comment: Blood Capillary blood specimen / Unknown 11/06/2024 10:59 PM EDT 11/06/2024 11:10 PM EDT Narrative [facility] ([facility]) - 11/06/2024 11:10 PM EDT Waived Testing in the ED is performed under the ED CLIA certificate #[id number]. us Jose Angel Fox MD LAB BLOOD ORDERABLES Final Resu lt [facility] ([facility]) [address] [place] [address] * (ABNORMAL) POCT glucose meter (11/06/2024 8:22 PM EDT) Glucose POC 125(H) 70 - 105 mg/dL 11/06/2024 8:33 PM EDT [facility] ([facility]) Comment: Blood Capillary blood specimen / Unknown 11/06/2024 8:22 PM EDT 11/06/2024 8:33 PM EDT Narrative [facility] ([facility]) - 11/06/2024 8:33 PM EDT Waived Testing in the ED is performed under the ED CLIA certificate #[id number]. us Jose Angel Fox MD LAB BLOOD ORDERABLES Final Resu lt Performing Organization Address [facility]/ZIP Co de Phone Number [facility] ([facility]) [address] [place] [address] * (ABNORMAL) POCT glucose meter (11/06/2024 5:05 PM EDT) Glucose POC 135(H) 70 - 105 mg/dL 11/06/2024 5:16 PM EDT [facility] ([facility]) Comment:[email or web address] Blood Capillary blood specimen / Unknown 11/06/2024 5:05 PM EDT 11/06/2024 5:16 PM EDT Narrative [facility] ([facility]) - 11/06/2024 5:16 PM EDT Waived Testing in the ED is performed under the ED CLIA certificate #[id number]. us Jose Angel Fox MD LAB BLOOD ORDERABLES Final Resu lt [facility] ([facility]) [address] [place] [address] * Calcium, ionized (11/06/2024 12:24 PM EDT) Calcium, Ion 1.15 1.15 - 1.33 mmol/L 11/06/2024 12:55 PM EDT [facility] Blood Venous blood specimen / Unknown Existing Catheter / Unknown 11/06/2024 12:24 PM EDT 11/06/2024 12:52 PM EDT us Eduarda Bravo PA-C LAB BLOOD ORDERABLES Final Resu lt [facility]ORY THERAPY [address] [place] [address], [place] * (ABNORMAL) POCT glucose meter (11/06/2024 12:19 PM EDT) Glucose POC 108(H) 70 - 105 mg/dL 11/06/2024 12:30 PM EDT [facility] ([facility]) Comment:[email or web address] Blood Capillary blood specimen / Unknown 11/06/2024 12:19 PM EDT 11/06/2024 12:30 PM EDT Narrative [facility] ([facility]) - 11/06/2024 12:30 PM EDT Waived Testing in the ED is performed under the ED CLIA certificate #[id number]. us Jose Anegl Fox MD LAB BLOOD ORDERABLES Final Resu lt Performing Organization Address [facility]/ZIP Co de Phone Number [facility] ([facility]) [address] [place] [address] * Vas Us Lower Extremity Pseudoaneurysm Duplex Right (11/06/2024 8:24 AM EDT) Anatomical Region Laterality Modality Lower Extremities Ultrasound 11/06/2024 8:20 AM EDT Impressions 11/10/2024 10:17 AM EDT Right: No evidence of pseudoaneurysm. Multiphasic Doppler signals and no significant spectral Doppler or color flow disturbances noted in Common femoral 94/10 cm/sec, Deep femoral 60/9 cm/sec, Proximal superficial femoral 131/15cm/sec artery. Common femoral and proximal femoral vein compressed and presented with phasic spectral Doppler signals. Right: No evidence of pseudoaneurysm. Multiphasic Doppler signals and no significant spectral Doppler or color flow disturbances noted in Common femoral 94/10 cm/sec, Deep femoral 60/9 cm/sec, Proximal superficial femoral 131/15cm/sec artery. Common femoral and proximal femoral vein compressed and presented with phasic spectral Doppler signals. Conclusions: No evidence of pseudoaneurysm right groin. Normal right arterial segments and vein Narrative 11/10/2024 10:17 AM EDT Procedure: The groin area was evaluated with ultrasound. This involved evaluation of the adjacent vessels using real-time ultrasound, color and spectral Doppler. Evaluation for the length and width of the neck supplying the pseudoaneurysm when pseudoaneurysm is present. Procedure: The groin area was evaluated with ultrasound. This involved evaluation of the adjacent vessels using real-time ultrasound, color and spectral Doppler. Evaluation for the length and width of the neck supplying the pseudoaneurysm when pseudoaneurysm is present. Procedure Note Fela Kingsley MD - 11/10/2024 Procedure: The groin area was evaluated with ultrasound. This involvedevaluation of the adjacent vessels using real-time ultrasound, color andspectral Doppler. Evaluation for the length and width of the necksupplying the pseudoaneurysm when pseudoaneurysm is present. Procedure: The groin area was evaluated with ultrasound. This involvedevaluation of the adjacent vessels using real-time ultrasound, color andspectral Doppler. Evaluation for the length and width of the necksupplying the pseudoaneurysm when pseudoaneurysm is present. IMPRESSION: Right: No evidence of pseudoaneurysm. Multiphasic Doppler signals and nosignificant spectral Doppler or color flow disturbances noted in Commonfemoral 94/10 cm/sec, Deep femoral 60/9 cm/sec, Proximal superficialfemoral 131/15cm/sec artery. Common femoral and proximal femoral veincompressed and presented with phasic spectral Doppler signals. Right: No evidence of pseudoaneurysm. Multiphasic Doppler signals and nosignificant spectral Doppler or color flow disturbances noted in Commonfemoral 94/10 cm/sec, Deep femoral 60/9 cm/sec, Proximal superficialfemoral 131/15cm/sec artery. Common femoral and proximal femoral veincompressed and presented with phasic spectral Doppler signals. Conclusions: No evidence of pseudoaneurysm right groin. Normal right arterial segments and vein us Mikayla Jennings PA-C IMG CV VASCULAR PROCEDURES Fi nal Result * POCT glucose meter (11/06/2024 7:52 AM EDT) [facility] Glucose POC 99 70 - 105 mg/dL 11/06/2024 8:03 AM EDT [facility] ([facility]) Comment:[email or web address] Blood Capillary blood specimen / Unknown 11/06/2024 7:52 AM EDT 11/06/2024 8:03 AM EDT Narrative [facility] ([facility]) - 11/06/2024 8:03 AM EDT Waived Testing in the ED is performed under the ED CLIA certificate #[id number]. us Jose Angel Fox MD LAB BLOOD ORDERABLES Final Resu lt [facility] ([facility]) [address] [place] [address] * (ABNORMAL) CBC auto differential (11/06/2024 5:50 AM EDT) [facility] Auto WBC 3.50(L) 4.00 - 10.60 10*3/uL 11/06/2024 6:05 AM EDT [facility] ([facility]) RBC 2.99(L) 3.80 - 5.00 10*6/uL 11/06/2024 6:05 AM EDT [facility] ([facility]) Hemoglobin 8.8(L) 12.0 - 15.0 g/dL 11/06/2024 6:05 AM EDT [facility] ([facility]) Hematocrit 26.6(L) 36.0 - 45.0 % 11/06/2024 6:05 AM EDT [facility] ([facility]) MCV 89.0 82.0 - 98.0 fL 11/06/2024 6:05 AM EDT [facility] ([facility]) MCH 29.4 27.0 - 33.0 pg 11/06/2024 6:05 AM [facility] ([facility]) MCHC 33.1 32.0 - 35.0 g/dL 11/06/2024 6:05 AM [facility] ([facility]) RDW 13.9 11.5 - 15.0 % 11/06/2024 6:05 AM [facility] ([facility]) Neutrophils % 42.5 40.0 - 72.0 % 11/06/2024 6:05 AM [facility] ([facility]) Lymphocytes % 40.0 20.0 - 45.0 % 11/06/2024 6:05 AM [facility] ([facility]) Monocytes % 10.0 5.0 - 12.0 % 11/06/2024 6:05 AM [facility] ([facility]) Eosinophils % 6.3(H) 0.0 - 6.0 % 11/06/2024 6:05 AM [facility] ([facility]) Basophils % 0.9 0.0 - 1.0 % 11/06/2024 6:05 AM [facility] ([facility]) Neutrophils Absolute 1.49(L) 1.60 - 7.60 10*3/uL 11/06/2024 6:05 AM [facility] ([facility]) Lymphocytes Absolute 1.40 1.20 - 4.00 10*3/uL 11/06/2024 6:05 AM [facility] ([facility]) Monocytes Absolute 0.35 0.10 - 1.00 10*3/uL 11/06/2024 6:05 AM [facility] ([facility]) Eosinophils Absolute 0.22 0.00 - 0.50 10*3/uL 11/06/2024 6:05 AM [facility] ([facility]) Basophils Absolute 0.03 0.00 - 0.20 10*3/uL 11/06/2024 6:05 AM [facility] ([facility]) Platelets 185 150 - 400 10*3/uL 11/06/2024 6:05 AM [facility] ([facility]) nRBC % 0.0 0 % 11/06/2024 6:05 AM EDT [facility] ([facility]) Immature Granulocytes % 0.3 0.0 - 1.0 % 11/06/2024 6:05 AM EDT [facility] ([facility]) Immature Granulocytes Absolute 0.01 0.00 - 0.20 10*3/uL 11/06/2024 6:05 AM EDT [facility]) Blood Venous blood specimen / Unknown Existing Catheter / Unknown 11/06/2024 5:50 AM EDT 11/06/2024 5:56 AM EDT us Jose Angel Fox MD LAB BLOOD ORDERABLES Final Resu lt [facility]) [address] [place] [id number] * Phosphorus (11/06/2024 5:50 AM EDT) Phosphorus 4.7 2.5 - 5.0 mg/dL 11/06/2024 6:52 AM EDT [facility]) Blood Venous blood specimen / Unknown Existing Catheter / Unknown 11/06/2024 5:50 AM EDT 11/06/2024 5:56 AM EDT us Rosa Willoughby PA-C LAB BLOOD ORDERABLES Final R esult [facility]) [address] [place] [address] * Magnesium (11/06/2024 5:50 AM EDT) Magnesium 1.9 1.9 - 2.7 mg/dL 11/06/2024 6:52 AM EDT [facility]) Blood Venous blood specimen / Unknown Existing Catheter / Unknown 11/06/2024 5:50 AM EDT 11/06/2024 5:56 AM EDT us Rosa Willoughby PA-C LAB BLOOD ORDERABLES Final R esult [facility] ([facility]) [address] [place] [address] * (ABNORMAL) Basic metabolic panel (11/06/2024 5:50 AM EDT) Sodium 139 136 - 145 mmol/L 11/06/2024 6:52 AM EDT [facility] ([facility]) Potassium 3.9 3.5 - 5.1 mmol/L 11/06/2024 6:52 AM EDT [facility] ([facility]) Chloride 105 98 - 107 mmol/L 11/06/2024 6:52 AM EDT [facility] ([facility]) CO2 27 21 - 31 mmol/L 11/06/2024 6:52 AM EDT [facility] ([facility]) BUN 12 7 - 25 mg/dL 11/06/2024 6:52 AM EDT [facility] ([facility]) Creatinine 0.61 0.60 - 1.20 mg/dL 11/06/2024 6:52 AM EDT [facility] ([facility]) Glucose 85 70 - 100 mg/dL 11/06/2024 6:52 AM EDT [facility] ([facility]) Calcium 8.4(L) 8.6 - 10.3 mg/dL 11/06/2024 6:52 AM EDT [facility] ([facility]) Anion Gap 11 7 - 20 mmol/L 11/06/2024 6:52 AM EDT [facility] ([facility]) eGFR 119.5 >60.0 mL/min/1. 73m*2 11/06/2024 6:52 AM EDT [facility] ([facility]) Comment:[facility] s estimated glomerular filtration rate (eGFR) will [...] any one group of individuals. BUN/Creatinine Ratio 19.7 10/17 6:52 AM EDT [facility] ([facility]) Blood Venous blood specimen / Unknown Existing Catheter / Unknown 11/06/2024 5:50 AM EDT 11/06/2024 5:56 AM EDT us Rosa Willoughby PA-C LAB BLOOD ORDERABLES Final R esult Performing Organization Address City/[facility]/ZIP Co de Phone Number [facility]) [address] [place] [address] * (ABNORMAL) POCT glucose meter (11/05/2024 10:07 PM EDT) Glucose POC 118(H) 70 - 105 mg/dL 11/05/2024 10:24 PM EDT [facility] ([facility]) Comment:[email or web address] Blood Capillary blood specimen / Unknown 11/05/2024 10:07 PM EDT 11/05/2024 10:24 PM EDT Narrative [facility]) - 11/05/2024 10:24 PM EDT Waived Testing in the ED is performed under the ED CLIA certificate #[id number]. us Jose Angel Fox MD LAB BLOOD ORDERABLES Final Resu lt Performing Organization Address [facility] Co de Phone Number [facility]) [address] [place] [address] * POCT glucose meter (11/05/2024 4:37 PM EDT) Glucose POC 96 70 - 105 mg/dL 11/05/2024 4:48 PM EDT [facility] ([facility]) Comment:[email or web address] Blood Capillary blood specimen / Unknown 11/05/2024 4:37 PM EDT 11/05/2024 4:48 PM EDT Narrative [facility] ([facility]) - 11/05/2024 4:48 PM EDT Waived Testing in the ED is performed under the ED CLIA certificate #[id number]. Jose Angel Fox MD LAB BLOOD ORDERABLES Final Resu lt [facility] ([facility]) [address] [place] [address] * (ABNORMAL) POCT glucose meter (11/05/2024 11:36 AM EDT) Glucose POC 123(H) 70 - 105 mg/dL 11/05/2024 11:47 AM EDT [facility] ([facility]) Comment:[email or web address] Blood Capillary blood specimen / Unknown 11/05/2024 11:36 AM EDT 11/05/2024 11:47 AM EDT Narrative [facility] ([facility]) - 11/05/2024 11:47 AM EDT Waived Testing in the ED is performed under the ED CLIA certificate #[id number]. Jose Angel Fox MD LAB BLOOD ORDERABLES Final Resu lt Performing Organization Address [facility] Co de Phone Number [facility] ([facility]) [address] [place] [address] * (ABNORMAL) Hemoglobin and hematocrit, blood (11/05/2024 9:01 AM EDT) Hemoglobin 9.4(L) 12.0 - 15.0 g/dL 11/05/2024 9:24 AM EDT [facility] ([facility]) Hematocrit 27.5(L) 36.0 - 45.0 % 11/05/2024 9:24 AM EDT [facility] ([facility]) Blood Venous blood specimen / Unknown Existing Catheter / Unknown 11/05/2024 9:01 AM EDT 11/05/2024 9:09 AM EDT Tomasa Disla MD LAB BLOOD ORDERABLES Fin al Result [facility]) [address] [place], [place] [id number] * (ABNORMAL) POCT glucose meter (11/05/2024 8:36 AM EDT) Glucose POC 120(H) 70 - 105 mg/dL 11/05/2024 8:46 AM EDT [facility] ([facility]) Comment:[email or web address] Blood Capillary blood specimen / Unknown 11/05/2024 8:36 AM EDT 11/05/2024 8:46 AM EDT Narrative [facility] ([facility]) - 11/05/2024 8:46 AM EDT Waived Testing in the ED is performed under the ED CLIA certificate #[id number]. us Jose Angel Fox MD LAB BLOOD ORDERABLES Final Resu lt [facility]) [address] [place], [place] [id number] * Phosphorus (11/05/2024 3:48 AM EDT) Phosphorus 4.0 2.5 - 5.0 mg/dL 11/05/2024 4:19 AM EDT [facility]) Blood Venous blood specimen / Unknown Existing Catheter / Unknown 11/05/2024 3:48 AM EDT 11/05/2024 3:56 AM EDT us Rosa Willoughby PA-C LAB BLOOD ORDERABLES Final R esult [facility]) [address] [place] [address] * Magnesium (11/05/2024 3:48 AM EDT) Magnesium 1.9 1.9 - 2.7 mg/dL 11/05/2024 4:19 AM EDT [facility]) Blood Venous blood specimen / Unknown Existing Catheter / Unknown 11/05/2024 3:48 AM EDT 11/05/2024 3:56 AM EDT us Rosa Willoughby PA-C LAB BLOOD ORDERABLES Final R esult [facility] ([facility]) [address] [place] [address] * (ABNORMAL) Basic metabolic panel (11/05/2024 3:48 AM EDT) Sodium 139 136 - 145 mmol/L 11/05/2024 4:19 AM EDT [facility] ([facility]) Potassium 3.6 3.5 - 5.1 mmol/L 11/05/2024 4:19 AM EDT [facility] ([facility]) Chloride 107 98 - 107 mmol/L 11/05/2024 4:19 AM EDT [facility] ([facility]) CO2 28 21 - 31 mmol/L 11/05/2024 4:19 AM EDT [facility] ([facility]) BUN 11 7 - 25 mg/dL 11/05/2024 4:19 AM EDT [facility] ([facility]) Creatinine 0.48(L) 0.60 - 1.20 mg/dL 11/05/2024 4:19 AM EDT [facility] ([facility]) Glucose 120(H) 70 - 100 mg/dL 11/05/2024 4:19 AM EDT [facility] ([facility]) Calcium 8.0(L) 8.6 - 10.3 mg/dL 11/05/2024 4:19 AM EDT [facility] ([facility]) Anion Gap 8 7 - 20 mmol/L 11/05/2024 4:19 AM EDT [facility] ([facility]) eGFR 126.6 >60.0 mL/min/1. 73m*2 11/05/2024 4:19 AM EDT [facility] ([facility]) Comment:[facility] s estimated glomerular filtration rate (eGFR) will [...] any one group of individuals. BUN/Creatinine Ratio 22.9 10/17 4:19 AM EDT [facility] ([facility]) Blood Venous blood specimen / Unknown Existing Catheter / Unknown 11/05/2024 3:48 AM EDT 11/05/2024 3:56 AM EDT us Rosa Willoughby PA-C LAB BLOOD ORDERABLES Final R esult [facility] ([facility]) [address] [place] [address] * (ABNORMAL) CBC (11/05/2024 3:48 AM EDT) Auto WBC 3.54(L) 4.00 - 10.60 10*3/uL 11/05/2024 4:23 AM EDT [facility] ([facility]) RBC 2.91(L) 3.80 - 5.00 10*6/uL 11/05/2024 4:23 AM EDT [facility] ([facility]) Hemoglobin 8.6(L) 12.0 - 15.0 g/dL 11/05/2024 4:23 AM EDT [facility] ([facility]) Hematocrit 25.5(L) 36.0 - 45.0 % 11/05/2024 4:23 AM EDT [facility] ([facility]) MCV 87.6 82.0 - 98.0 fL 11/05/2024 4:23 AM EDT [facility] ([facility]) MCH 29.6 27.0 - 33.0 pg 11/05/2024 4:23 AM EDT [facility] ([facility]) MCHC 33.7 32.0 - 35.0 g/dL 11/05/2024 4:23 AM EDT [facility] ([facility]) RDW 14.1 11.5 - 15.0 % 11/05/2024 4:23 AM EDT [facility] ([facility]) Platelets 177 150 - 400 10*3/uL 11/05/2024 4:23 AM EDT [facility] ([facility]) Blood Venous blood specimen / Unknown Existing Catheter / Unknown 11/05/2024 3:48 AM EDT 11/05/2024 3:56 AM EDT Rosa Willoughby PA-C LAB BLOOD ORDERABLES Final R esult [facility] ([facility]) [address] [place] [address] * Calcium, ionized (11/05/2024 1:00 AM EDT) Calcium, Ion 1.16 1.15 - 1.33 mmol/L 11/05/2024 4:02 AM EDT [facility] RESPIRATORY THERAPY Blood Venous blood specimen / Unknown 11/05/2024 1:00 AM EDT 11/05/2024 3:55 AM EDT us Rosa Willoughby PA-C LAB BLOOD ORDERABLES Final R esult [facility]PIRAT[facility] THERAPY [address] [place] [address], [place] * (ABNORMAL) Hemoglobin and hematocrit, blood (11/05/2024 12:54 AM EDT) Hemoglobin 8.5(L) 12.0 - 15.0 g/dL 11/05/2024 1:54 AM EDT [facility] ([facility]) Hematocrit 24.9(L) 36.0 - 45.0 % 11/05/2024 1:54 AM EDT [facility] ([facility]) Blood Venous blood specimen / Unknown Existing Catheter / Unknown 11/05/2024 12:54 AM EDT 11/05/2024 1:19 AM EDT us Tomasa Disla MD LAB BLOOD ORDERABLES Fin al Result [facility] ([facility]) [address] [place], [place] [id number] * POCT glucose meter (11/04/2024 10:33 PM EDT) Glucose POC 102 70 - 105 mg/dL 11/04/2024 10:44 PM EDT [facility] ([facility]) Comment:[email or web address] Blood Capillary blood specimen / Unknown 11/04/2024 10:33 PM EDT 11/04/2024 10:44 PM EDT Narrative [facility] ([facility]) - 11/04/2024 10:44 PM EDT Waived Testing in the ED is performed under the ED CLIA certificate #[id number]. us Jose Angel Fox MD LAB BLOOD ORDERABLES Final Resu lt Performing Organization Address [facility]/ZIP Co de Phone Number [facility] ([facility]) [address] [place] [id number] * (ABNORMAL) Basic metabolic panel (11/04/2024 8:17 PM EDT) Sodium 137 136 - 145 mmol/L 11/04/2024 8:42 PM EDT [facility] ([facility]) Potassium 4.0 3.5 - 5.1 mmol/L 11/04/2024 8:42 PM EDT [facility] ([facility]) Chloride 106 98 - 107 mmol/L 11/04/2024 8:42 PM EDT [facility] ([facility]) CO2 27 21 - 31 mmol/L 11/04/2024 8:42 PM EDT [facility] ([facility]) BUN 14 7 - 25 mg/dL 11/04/2024 8:42 PM EDT [facility]) Creatinine 0.48(L) 0.60 - 1.20 mg/dL 11/04/2024 8:42 PM EDT [facility] ([facility]) Glucose 82 70 - 100 mg/dL 11/04/2024 8:42 PM EDT [facility] ([facility]) Calcium 7.8(L) 8.6 - 10.3 mg/dL 11/04/2024 8:42 PM EDT [facility] ([facility]) Anion Gap 8 7 - 20 mmol/L 11/04/2024 8:42 PM EDT [facility] ([facility]) eGFR 126.6 >60.0 mL/min/1. 73m*2 11/04/2024 8:42 PM EDT [facility] ([facility]) Comment:[facility] estimated glomerular filtration rate (eGFR) will [...] any one group of individuals. BUN/Creatinine Ratio 29.2 10/17 8:42 PM EDT [facility] ([facility]) Blood Venous blood specimen / Unknown Existing Catheter / Unknown 11/04/2024 8:17 PM EDT 11/04/2024 8:17 PM EDT Audie Sylvester PA-C LAB BLOOD ORDERABLES F inal Result [facility] ([facility]) [address] [place] [address] * (ABNORMAL) Hemoglobin and hematocrit, blood (11/04/2024 8:13 PM EDT) Hemoglobin 9.0(L) 12.0 - 15.0 g/dL 11/04/2024 8:24 PM EDT [facility] ([facility]) Hematocrit 26.7(L) 36.0 - 45.0 % 11/04/2024 8:24 PM EDT [facility] ([facility]) Blood Venous blood specimen / Unknown Existing Catheter / Unknown 11/04/2024 8:13 PM EDT 11/04/2024 8:17 PM EDT Tomasa Disla MD LAB BLOOD ORDERABLES Fin al Result [facility] ([facility]) [address] [place] [address] * (ABNORMAL) POCT glucose meter (11/04/2024 5:12 PM EDT) Pathologist [facility] Glucose POC 147(H) 70 - 105 mg/dL 11/04/2024 5:23 PM EDT [facility] ([facility]) Comment:[email or web address] Blood Capillary blood specimen / Unknown 11/04/2024 5:12 PM EDT 11/04/2024 5:23 PM EDT Narrative [facility] ([facility]) - 11/04/2024 5:23 PM EDT Waived Testing in the ED is performed under the ED CLIA certificate #[id number]. Jose Angel Fox MD LAB BLOOD ORDERABLES Final Resu lt Performing Organization Address City/[facility]/ZIP Co de Phone Number [facility] ([facility]) [address] [place] [address] * Transfuse RBC (11/04/2024 4:57 PM EDT) us Tomasa Disla MD BLOOD TRANSFUSION ORDERA BLES Final Result * Transfuse RBC: 1 Units (11/04/2024 4:57 PM EDT) us Tomasa Disla MD BLOOD TRANSFUSION ORDERA BLES Final Result * ECG 12 lead (11/04/2024 1:59 PM EDT) Ventricular Rate 100 BPM GE MUSE Atrial Rate 100 BPM GE MUSE MA Interval 132 ms GE MUSE QRS DURATION 94 ms GE MUSE QT Interval 382 ms GE MUSE QTC CALCULATION(BAZE TT) 492 ms GE MUSE P [place] 60 degrees GE MUSE R-[place] 34 degrees GE MUSE T Wave [place] 58 degrees GE MUSE 11/04/2024 1:40 PM EDT 11/05/2024 12:04 AM EDT Impressions GE MUSE - 11/05/2024 12:04 AM EDT Normal sinus rhythm Statement not found (1146) Abnormal ECG When compared with ECG of 02-NOV-2024 13:02, No significant change was found Confirmed by Erlin Geller ([id number]) on 11/05/2024 12:04:52 AM Narrative Procedure Note Erlin Geller MD - 11/05/2024 IMPRESSION: Normal sinus rhythm Statement not found (1146) Abnormal ECG When compared with ECG of 02-NOV-2024 13:02, No significant change was found Confirmed by Erlin Geller ([id number]) on 11/05/2024 12:04:52 AM Tomasa Disla MD ECG ORDERABLES Final Re sult [facility] * (ABNORMAL) Hemoglobin and hematocrit, blood (11/04/2024 1:38 PM EDT) Hemoglobin 7.9(L) 12.0 - 15.0 g/dL 11/04/2024 1:49 PM EDT [facility] ([facility]) Hematocrit 23.9(L) 36.0 - 45.0 % 11/04/2024 1:49 PM EDT [facility] ([facility]) Blood Venous blood specimen / Unknown Existing Catheter / Unknown 11/04/2024 1:38 PM EDT 11/04/2024 1:43 PM EDT Tomasa Disla MD LAB BLOOD ORDERABLES Fin al Result [facility] ([facility]) [address] [place] [address] * (ABNORMAL) Basic metabolic panel (11/04/2024 1:38 PM EDT) Sodium 135(L) 136 - 145 mmol/L 11/04/2024 2:09 PM EDT [facility] ([facility]) Potassium 4.2 3.5 - 5.1 mmol/L 11/04/2024 2:09 PM EDT [facility] ([facility]) Chloride 106 98 - 107 mmol/L 11/04/2024 2:09 PM EDT [facility] ([facility]) CO2 24 21 - 31 mmol/L 11/04/2024 2:09 PM EDT [facility] ([facility]) BUN 13 7 - 25 mg/dL 11/04/2024 2:09 PM T [facility] ([facility]) Creatinine 0.61 0.60 - 1.20 mg/dL 11/04/2024 2:09 PM T [facility] ([facility]) Glucose 191(H) 70 - 100 mg/dL 11/04/2024 2:09 PM T [facility] ([facility]) Calcium 7.6(L) 8.6 - 10.3 mg/dL 11/04/2024 2:09 PM T [facility] ([facility]) Anion Gap 9 7 - 20 mmol/L 11/04/2024 2:09 PM T [facility] ([facility]) eGFR 119.5 >60.0 mL/min/1. 73m*2 11/04/2024 2:09 PM [facility] ([facility]) Comment:[facility] s estimated glomerular filtration rate (eGFR) will [...] any one group of individuals. BUN/Creatinine Ratio 21.3 10/17 2:09 PM T [facility] ([facility]) Blood Venous blood specimen / Unknown Existing Catheter / Unknown 11/04/2024 1:38 PM EDT 11/04/2024 1:43 PM EDT us Tomasa Disla MD LAB BLOOD ORDERABLES Fin al Result [facility] ([facility]) [address] [place] [address] * (ABNORMAL) High Sensitivity Troponin I (11/04/2024 1:38 PM EDT) Pathologist [facility] High Sensitivity Troponin I 36(H) <15 ng/L 11/04/2024 2:13 PM EDT [facility] ([facility]) Blood Venous blood specimen / Unknown Existing Catheter / Unknown 11/04/2024 1:38 PM EDT 11/04/2024 1:43 PM EDT us Tomasa Disla MD LAB BLOOD ORDERABLES Fin al Result Performing Organization Address [facility]/ZIP Co de Phone Number [facility] ([facility]) [address] [place] [address] * (ABNORMAL) POCT glucose meter (11/04/2024 1:06 PM EDT) [facility] Glucose POC 125(H) 70 - 105 mg/dL 11/04/2024 1:19 PM EDT [facility] ([facility]) Comment:kendy Blood Capillary blood specimen / Unknown 11/04/2024 1:06 PM EDT 11/04/2024 1:19 PM EDT Narrative [facility] ([facility]) - 11/04/2024 1:19 PM EDT Waived Testing in the ED is performed under the ED CLIA certificate #[id number]. us Jose Angel Fox MD LAB BLOOD ORDERABLES Final Resu lt [facility] ([facility]) [address] [place] [address] * CTA Abdomen Pelvis W IV Contrast (11/04/2024 12:48 PM EDT) Anatomical Region Laterality Modality Body, Pelvis, Abdomen Computed T omography 11/05/2024 8:05 AM EDT Impressions 11/05/2024 8:14 AM EDT Soft tissue drain is noted in the anterior soft tissues of the right thigh. There is higher attenuation material abutting the drain and extending laterally. Presumably this represents blood products. Please correlate with drain output. Consider surveillance imaging follow-up with ultrasound. Additional findings are detailed above Electronically signed: Raegan Quinn. Narrative 11/05/2024 8:14 AM EDT CTA ABDOMEN PELVIS W IV CONTRAST 11/04/2024 12:33 PM CLINICAL INDICATIONS: Recent hematoma. Hemoglobin is decreasing. Follow-up from recent hematoma repair. PROTOCOL: Routine CONTRAST: Omnipaque TECHNIQUE: Multidetector CT angiography axial slices of the abdomen and pelvis were obtained with IV contrast. Multiplanar reformats, MIP, and volume rendered 3-D images were generated on a separate workstation and reviewed to further define anatomy and possible pathology. All CT scans at this facility use dose modulation, iterative reconstruction, and/or weight based dosing when appropriate to reduce radiation dose to as low as reasonably achievable. COMPARISON: 08/19/2024 FINDINGS: The abdominal aorta has a normal size. The common iliac arteries normal in size. The common external and internal iliac arteries have a normal size. The right common femoral artery is patent. Visualized portion of the superficial and profunda branches are patent. There is a small bubble of air anteriorly in the right groin. A drain is noted in the soft tissues laterally. There is some higher attenuation of fluid, presumably blood abutting the drain. Please correlate with drain output. There is nonspecific soft tissue strandiness anteriorly, laterally and stenting posteriorly. The study was tailored for the arteries. Therefore no comment regarding the venous structures will be made. Liver is heterogenous but unchanged. Prior cholecystectomy. No definite change is noted involving the spleen, pancreas or adrenal glands given technical considerations. There is no hydronephrosis or renal laceration. Fecal loading suggests constipation. Not spell obstruction. Costello type catheter is noted in the urinary bladder. No free air. No free fluid. The celiac, SMA and KEELY are patent Procedure Note Raegan Quinn MD - 11/05/2024 CTA ABDOMEN PELVIS W IV CONTRAST 11/04/2024 12:33 PM CLINICAL INDICATIONS: Recent hematoma. Hemoglobin is decreasing. Follow-upfrom recent hematoma repair. PROTOCOL: Routine CONTRAST: Omnipaque TECHNIQUE: Multidetector CT angiography axial slices of the abdomen andpelvis were obtained with IV contrast. Multiplanar reformats, MIP, and volumerendered 3-D images were generated on a separate workstation and reviewed tofurther define anatomy and possible pathology. All CT scans at this facility use dose modulation, iterativereconstruction, and/or weight based dosing when appropriate to reduce radiation dose to aslow as reasonably achievable. COMPARISON: 08/19/2024 FINDINGS: The abdominal aorta has a normal size. The common iliac arteries normal insize. The common external and internal iliac arteries have a normal size. Theright common femoral artery is patent. Visualized portion of the superficialand profunda branches are patent. There is a small bubble of air anteriorly inthe right groin. A drain is noted in the soft tissues laterally. There issome higher attenuation of fluid, presumably blood abutting the drain. Please correlate with drain output. There is nonspecific soft tissuestrandiness anteriorly, laterally and stenting posteriorly. The study was tailored forthe arteries. Therefore no comment regarding the venous structures will bemade. Liver is heterogenous but unchanged. Prior cholecystectomy. No definitechange is noted involving the spleen, pancreas or adrenal glands giventechnical considerations. There is no hydronephrosis or renal laceration. Fecalloading suggests constipation. Not spell obstruction. Costello type catheter is notedin the urinary bladder. No free air. No free fluid. The celiac, SMA and IMAare patent IMPRESSION: Soft tissue drain is noted in the anterior soft tissues of the rightthigh. There is higher attenuation material abutting the drain and extendinglaterally. Presumably this represents blood products. Please correlate with drainoutput. Consider surveillance imaging follow-up with ultrasound. Additionalfindings are detailed above Electronically signed: Raegan Quinn. us Mikayla Jennings PA-C IMG CT PROCEDURES Final Resul t * (ABNORMAL) POCT glucose meter (11/04/2024 9:20 AM EDT) Glucose POC 124(H) 70 - 105 mg/dL 11/04/2024 9:31 AM EDT [facility] ([facility]) Comment:[email or web address] Blood Capillary blood specimen / Unknown 11/04/2024 9:20 AM EDT 11/04/2024 9:31 AM EDT Narrative [facility] ([facility]) - 11/04/2024 9:31 AM EDT Waived Testing in the ED is performed under the ED CLIA certificate #[id number]. us Jose Angel Fox MD LAB BLOOD ORDERABLES Final Resu lt Performing Organization Address City/[facility]/ZIP Co de Phone Number [facility]) [address] [place] [address] * (ABNORMAL) POCT glucose meter (11/04/2024 5:10 AM EDT) Glucose POC 146(H) 70 - 105 mg/dL 11/04/2024 5:21 AM EDT [facility]) Comment: Blood Capillary blood specimen / Unknown 11/04/2024 5:10 AM EDT 11/04/2024 5:21 AM EDT Narrative [facility]) - 11/04/2024 5:21 AM EDT Waived Testing in the ED is performed under the ED CLIA certificate #[id number]. us Ky Ritter MD LAB BLOOD ORDERABLES Final Re sult Performing Organization Address City/[facility]/ZIP Co de Phone Number [facility]) [address] [place] [address] * Phosphorus (11/04/2024 5:05 AM EDT) Phosphorus 3.3 2.5 - 5.0 mg/dL 11/04/2024 6:27 AM EDT [facility] ([facility]) Blood Venous blood specimen / Unknown Existing Catheter / Unknown 11/04/2024 5:05 AM EDT 11/04/2024 5:08 AM EDT us Rosa Willoughby PA-C LAB BLOOD ORDERABLES Final R esult [facility]) [address], [place] [id number] * Magnesium (11/04/2024 5:05 AM EDT) Magnesium 1.9 1.9 - 2.7 mg/dL 11/04/2024 6:27 AM EDT [facility] ([facility]) Blood Venous blood specimen / Unknown Existing Catheter / Unknown 11/04/2024 5:05 AM EDT 11/04/2024 5:08 AM EDT Rosa INMNA-Elroy LAB BLOOD ORDERABLES Final R esult Performing Organization Address City/[facility]/ZIP Co de Phone Number [facility]) [address] [place] [address] * (ABNORMAL) Basic metabolic panel (11/04/2024 5:05 AM EDT) Sodium 140 136 - 145 mmol/L 11/04/2024 6:27 AM EDT [facility] ([facility]) Potassium 3.6 3.5 - 5.1 mmol/L 11/04/2024 6:27 AM EDT [facility] ([facility]) Chloride 108(H) 98 - 107 mmol/L 11/04/2024 6:27 AM EDT [facility] ([facility]) CO2 28 21 - 31 mmol/L 11/04/2024 6:27 AM EDT [facility] ([facility]) BUN 9 7 - 25 mg/dL 11/04/2024 6:27 AM EDT [facility] ([facility]) Creatinine 0.45(L) 0.60 - 1.20 mg/dL 11/04/2024 6:27 AM EDT [facility] ([facility]) Glucose 128(H) 70 - 100 mg/dL 11/04/2024 6:27 AM EDT [facility] ([facility]) Calcium 7.6(L) 8.6 - 10.3 mg/dL 11/04/2024 6:27 AM EDT [facility] ([facility]) Anion Gap 8 7 - 20 mmol/L 11/04/2024 6:27 AM EDT [facility] ([facility]) eGFR 128.6 >60.0 mL/min/1. 73m*2 11/04/2024 6:27 AM EDT [facility] ([facility]) Comment:[facility] s estimated glomerular filtration rate (eGFR) will [...] any one group of individuals. BUN/Creatinine Ratio 20.0 10/17 6:27 AM EDT [facility] ([facility]) Blood Venous blood specimen / Unknown Existing Catheter / Unknown 11/04/2024 5:05 AM EDT 11/04/2024 5:08 AM EDT us Rosa Willoughby PA-C LAB BLOOD ORDERABLES Final R esult [facility]) [address] [place] [address] * (ABNORMAL) CBC (11/04/2024 5:05 AM EDT) Auto WBC 3.79(L) 4.00 - 10.60 10*3/uL 11/04/2024 5:17 AM EDT [facility] ([facility]) RBC 2.66(L) 3.80 - 5.00 10*6/uL 11/04/2024 5:17 AM EDT [facility] ([facility]) Hemoglobin 8.0(L) 12.0 - 15.0 g/dL 11/04/2024 5:17 AM EDT [facility] ([facility]) Hematocrit 23.7(L) 36.0 - 45.0 % 11/04/2024 5:17 AM EDT [facility] ([facility]) MCV 89.1 82.0 - 98.0 fL 11/04/2024 5:17 AM EDT [facility] ([facility]) MCH 30.1 27.0 - 33.0 pg 11/04/2024 5:17 AM EDT [facility] ([facility]) MCHC 33.8 32.0 - 35.0 g/dL 11/04/2024 5:17 AM EDT [facility] ([facility]) RDW 13.9 11.5 - 15.0 % 11/04/2024 5:17 AM EDT [facility] ([facility]) Platelets 185 150 - 400 10*3/uL 11/04/2024 5:17 AM EDT [facility] ([facility]) Blood Venous blood specimen / Unknown Existing Catheter / Unknown 11/04/2024 5:05 AM EDT 11/04/2024 5:08 AM EDT us Rosa GONZALEZC LAB BLOOD ORDERABLES Final R esult [facility] ([facility]) [address] [place] [address] * (ABNORMAL) Calcium, ionized (11/04/2024 5:05 AM EDT) Calcium, Ion 1.12(L) 1.15 - 1.33 mmol/L 11/04/2024 5:15 AM EDT [facility] RESPIRATORY THERAPY Blood Venous blood specimen / Unknown Existing Catheter / Unknown 11/04/2024 5:05 AM EDT 11/04/2024 5:12 AM EDT Rosa INMAN-C LAB BLOOD ORDERABLES Final R esult [facility] RESPIRATORY THERAPY [address] [place] [address], [place] * (ABNORMAL) POCT glucose meter (11/04/2024 12:12 AM EDT) Glucose POC 190(H) 70 - 105 mg/dL 11/04/2024 12:23 AM EDT [facility] ([facility]) Comment:[email or web address] Blood Capillary blood specimen / Unknown 11/04/2024 12:12 AM EDT 11/04/2024 12:23 AM EDT Narrative [facility] ([facility]) - 11/04/2024 12:23 AM EDT Waived Testing in the ED is performed under the ED CLIA certificate #[id number]. Ky Ritter MD LAB BLOOD ORDERABLES Final Re sult [facility]) [address] [place] [address] * (ABNORMAL) Hemoglobin and hematocrit, blood (11/04/2024 12:09 AM EDT) Hemoglobin 8.0(L) 12.0 - 15.0 g/dL 11/04/2024 12:56 AM EDT [facility] ([facility]) Hematocrit 23.5(L) 36.0 - 45.0 % 11/04/2024 12:56 AM EDT [facility] ([facility]) Blood Venous blood specimen / Unknown Existing Catheter / Unknown 11/04/2024 12:09 AM EDT 11/04/2024 12:13 AM EDT Sid INMAN-Elroy LAB BLOOD ORDERABLES Final Result [facility]) [address] [place] [address] * (ABNORMAL) POCT glucose meter (11/03/2024 9:52 PM EDT) Glucose POC 130(H) 70 - 105 mg/dL 11/03/2024 10:03 PM EDT [facility] ([facility]) Comment:[email or web address] Blood Capillary blood specimen / Unknown 11/03/2024 9:52 PM EDT 11/03/2024 10:03 PM EDT Narrative [facility]) - 11/03/2024 10:03 PM EDT Waived Testing in the ED is performed under the ED CLIA certificate #[id number]. Ky Ritter MD LAB BLOOD ORDERABLES Final Re sult [facility]) [address] [place] [address] * (ABNORMAL) Hemoglobin and hematocrit, blood (11/03/2024 6:34 PM EDT) Hemoglobin 8.3(L) 12.0 - 15.0 g/dL 11/03/2024 6:48 PM EDT [facility]) Hematocrit 24.9(L) 36.0 - 45.0 % 11/03/2024 6:48 PM EDT [facility] ([facility]) Blood Venous blood specimen / Unknown Existing Catheter / Unknown 11/03/2024 6:34 PM EDT 11/03/2024 6:40 PM EDT Sid INMAN-Elroy LAB BLOOD ORDERABLES Final Result Performing Organization Address [facility]/ZIP Co de Phone Number [facility]) [address] [place] [address] * POCT glucose meter (11/03/2024 5:35 PM EDT) Glucose POC 101 70 - 105 mg/dL 11/03/2024 5:45 PM EDT [facility]) Comment:[email or web address] Blood Capillary blood specimen / Unknown 11/03/2024 5:35 PM EDT 11/03/2024 5:45 PM EDT Narrative [facility]) - 11/03/2024 5:45 PM EDT Waived Testing in the ED is performed under the ED CLIA certificate #[id number]. us Ky Ritter MD LAB BLOOD ORDERABLES Final Re sult [facility] ([facility]) [address] [place] [address] * (ABNORMAL) CBC (11/03/2024 1:23 PM EDT) Auto WBC 7.60 4.00 - 10.60 10*3/uL 11/03/2024 1:54 PM EDT [facility] ([facility]) RBC 3.01(L) 3.80 - 5.00 10*6/uL 11/03/2024 1:54 PM EDT [facility] ([facility]) Hemoglobin 9.0(L) 12.0 - 15.0 g/dL 11/03/2024 1:54 PM EDT [facility] ([facility]) Hematocrit 26.7(L) 36.0 - 45.0 % 11/03/2024 1:54 PM EDT [facility] ([facility]) MCV 88.7 82.0 - 98.0 fL 11/03/2024 1:54 PM EDT [facility] ([facility]) MCH 29.9 27.0 - 33.0 pg 11/03/2024 1:54 PM EDT [facility] ([facility]) MCHC 33.7 32.0 - 35.0 g/dL 11/03/2024 1:54 PM EDT [facility] ([facility]) RDW 13.9 11.5 - 15.0 % 11/03/2024 1:54 PM EDT [facility] ([facility]) Platelets 253 150 - 400 10*3/uL 11/03/2024 1:54 PM EDT [facility] ([facility]) Blood Venous blood specimen / Unknown Existing Catheter / Unknown 11/03/2024 1:23 PM EDT 11/03/2024 1:34 PM EDT Mikayla Jennings PA-C LAB BLOOD ORDERABLES Final Re sult [facility] ([facility]) [address] [place] [address] * (ABNORMAL) POCT glucose meter (11/03/2024 11:35 AM EDT) Glucose POC 145(H) 70 - 105 mg/dL 11/03/2024 11:47 AM EDT [facility] ([facility]) Comment:[email or web address] Blood Capillary blood specimen / Unknown 11/03/2024 11:35 AM EDT 11/03/2024 11:47 AM EDT [facility] ([facility]) - 11/03/2024 11:47 AM EDT Waived Testing in the ED is performed under the ED CLIA certificate #[id number]. us Ky Ritter MD LAB BLOOD ORDERABLES Final Re sult Performing Organization Address [facility] Co de Phone Number [facility]) [address] [place] [address] * (ABNORMAL) POCT glucose meter (11/03/2024 7:46 AM EDT) Glucose POC 135(H) 70 - 105 mg/dL 11/03/2024 8:09 AM EDT [facility] ([facility]) Comment:[email or web address] Blood Capillary blood specimen / Unknown 11/03/2024 7:46 AM EDT 11/03/2024 8:09 AM EDT [facility] ([facility]) - 11/03/2024 8:09 AM EDT Waived Testing in the ED is performed under the ED CLIA certificate #[id number]. us Ky Ritter MD LAB BLOOD ORDERABLES Final Re sult Performing Organization Address City/[facility]/ZIP Co de Phone Number [facility] ([facility]) [address] [place] [address] * Phosphorus (11/03/2024 4:46 AM EDT) Phosphorus 3.7 2.5 - 5.0 mg/dL 11/03/2024 5:30 AM EDT [facility] ([facility]) Blood Venous blood specimen / Unknown Existing Catheter / Unknown 11/03/2024 4:46 AM EDT 11/03/2024 4:58 AM EDT Rosa Willoughby PA-C LAB BLOOD ORDERABLES Final R esult [facility]) [address] [place] [address] * Magnesium (11/03/2024 4:46 AM EDT) [facility] Magnesium 2.2 1.9 - 2.7 mg/dL 11/03/2024 5:30 AM EDT [facility] ([facility]) Blood Venous blood specimen / Unknown Existing Catheter / Unknown 11/03/2024 4:46 AM EDT 11/03/2024 4:58 AM EDT Rosa Willoughby PA-C LAB BLOOD ORDERABLES Final R esult [facility]) [address] [place] [address] * (ABNORMAL) Basic metabolic panel (11/03/2024 4:46 AM EDT) Pathologist [facility] Sodium 136 136 - 145 mmol/L 11/03/2024 5:30 AM EDT [facility] ([facility]) Potassium 4.4 3.5 - 5.1 mmol/L 11/03/2024 5:30 AM EDT [facility] ([facility]) Chloride 108(H) 98 - 107 mmol/L 11/03/2024 5:30 AM EDT [facility] ([facility]) CO2 22 21 - 31 mmol/L 11/03/2024 5:30 AM EDT [facility] ([facility]) BUN 6(L) 7 - 25 mg/dL 11/03/2024 5:30 AM EDT [facility] ([facility]) Creatinine 0.52(L) 0.60 - 1.20 mg/dL 11/03/2024 5:30 AM EDT [facility] ([facility]) Glucose 170(H) 70 - 100 mg/dL 11/03/2024 5:30 AM EDT [facility] ([facility]) Calcium 7.9(L) 8.6 - 10.3 mg/dL 11/03/2024 5:30 AM EDT [facility] ([facility]) Anion Gap 10 7 - 20 mmol/L 11/03/2024 5:30 AM EDT [facility] ([facility]) eGFR 124.2 >60.0 mL/min/1. 73m*2 11/03/2024 5:30 AM EDT [facility] ([facility]) Comment:[facility] s estimated glomerular filtration rate (eGFR) will [...] any one group of individuals. BUN/Creatinine Ratio 11.5 10/16 5:30 AM EDT [facility] ([facility]) Blood Venous blood specimen / Unknown Existing Catheter / Unknown 11/03/2024 4:46 AM EDT 11/03/2024 4:58 AM EDT us Rosa Willoughby PA-C LAB BLOOD ORDERABLES Final R esult [facility] ([facility]) [address], [place] [id number] * (ABNORMAL) CBC (11/03/2024 4:46 AM EDT) Auto WBC 6.23 4.00 - 10.60 10*3/uL 11/03/2024 5:09 AM EDT [facility] ([facility]) RBC 3.23(L) 3.80 - 5.00 10*6/uL 11/03/2024 5:09 AM EDT [facility] ([facility]) Hemoglobin 9.5(L) 12.0 - 15.0 g/dL 11/03/2024 5:09 AM EDT [facility] ([facility]) Hematocrit 28.7(L) 36.0 - 45.0 % 11/03/2024 5:09 AM EDT [facility] ([facility]) MCV 88.9 82.0 - 98.0 fL 11/03/2024 5:09 AM EDT [facility] ([facility]) MCH 29.4 27.0 - 33.0 pg 11/03/2024 5:09 AM EDT [facility] ([facility]) MCHC 33.1 32.0 - 35.0 g/dL 11/03/2024 5:09 AM EDT [facility] ([facility]) RDW 13.6 11.5 - 15.0 % 11/03/2024 5:09 AM EDT [facility] ([facility]) Platelets 248 150 - 400 10*3/uL 11/03/2024 5:09 AM EDT [facility] ([facility]) Blood Venous blood specimen / Unknown Existing Catheter / Unknown 11/03/2024 4:46 AM EDT 11/03/2024 4:58 AM EDT us Rosa Willoughby PA-C LAB BLOOD ORDERABLES Final R esult [facility] ([facility]) [address] [place] [address] * Calcium, ionized (11/03/2024 4:46 AM EDT) [facility] Calcium, Ion 1.16 1.15 - 1.33 mmol/L 11/03/2024 5:32 AM EDT [facility] RESPIRATORY THERAPY Blood Venous blood specimen / Unknown Existing Catheter / Unknown 11/03/2024 4:46 AM EDT 11/03/2024 5:20 AM EDT us Rosa Willoughby PA-C LAB BLOOD ORDERABLES Final R esult Performing Organization Address City/[facility] Co de Phone Number [facility] RESPIRATORY THERAPY [address] [place] [address], [place] * (ABNORMAL) INTEM C (11/03/2024 1:58 AM EDT) INTEM C CLOTTING TIME 169 139 - 205 s 11/03/2024 1:58 AM EDT [facility] RESPIRATORY THERAPY INTEM C AMPLITUDE 5 MIN 48 36 - 54 mm 11/03/2024 1:58 AM EDT [facility] RESPIRATORY THERAPY INTEM C AMPLITUDE 10 MIN 57 46 - 63 mm 11/03/2024 1:58 AM EDT [facility] RESPIRATORY THERAPY INTEM C AMPLITUDE 20 MIN 63 53 - 68 mm 11/03/2024 1:58 AM EDT [facility] RESPIRATORY THERAPY INTEM C MAXIMUM CLOT FIRMNESS 63 55 - 70 mm 11/03/2024 1:58 AM EDT [facility] RESPIRATORY THERAPY INTEM C LYSIS INDEX 60 MIN 95 93 - 100 % 11/03/2024 1:58 AM EDT [facility] RESPIRATORY THERAPY INTEM C MAXIMUM LYSIS 12(H) 0 - 7 % 11/03/2024 1:58 AM EDT [facility] RESPIRATORY THERAPY Comment:MA^Preliminary Resul t Blood 11/03/2024 1:58 AM EDT 11/03/2024 1:58 AM EDT us Ky Ritter MD LAB BLOOD ORDERABLES Final Re sult Performing Organization Address City/[facility]/ZIP Co de Phone Number [facility] RESPIRATORY THERAPY [address] [place] [address], [place] * HEPTEM C (11/03/2024 1:58 AM EDT) HEPTEM C CLOTTING TIME 168 141 - 215 s 11/03/2024 1:58 AM EDT [facility] RESPIRATORY THERAPY HEPTEM C AMPLITUDE 5 MIN 46 33 - 51 mm 11/03/2024 1:58 AM EDT [facility] RESPIRATORY THERAPY HEPTEM C AMPLITUDE 10 MIN 56 44 - 61 mm 11/03/2024 1:58 AM EDT [facility] RESPIRATORY THERAPY HEPTEM C AMPLITUDE 20 MIN 62 52 - 67 mm 11/03/2024 1:58 AM EDT [facility] RESPIRATORY THERAPY HEPTEM C MAXIMUM CLOT FIRMNESS 63 54 - 69 mm 11/03/2024 1:58 AM EDT [facility] RESPIRATORY THERAPY Blood 11/03/2024 1:58 AM EDT 11/03/2024 1:58 AM EDT us Ky Ritter MD LAB BLOOD ORDERABLES Final Re sult Performing Organization Address City/[facility]/ZIP Co de Phone Number [facility] RESPIRATORY THERAPY [address] [place] [address], [place] * (ABNORMAL) EXTEM C (11/03/2024 1:58 AM EDT) EXTEM C CLOTTING TIME 51 51 - 73 s 11/03/2024 1:58 AM EDT [facility] RESPIRATORY THERAPY EXTEM C AMPLITUDE 5 MIN 52 33 - 52 mm 11/03/2024 1:58 AM EDT [facility] RESPIRATORY THERAPY EXTEM C AMPLITUDE 10 MIN 61 45 - 62 mm 11/03/2024 1:58 AM EDT [facility] RESPIRATORY THERAPY EXTEM C AMPLITUDE 20 MIN 67 54 - 69 mm 11/03/2024 1:58 AM EDT [facility] RESPIRATORY THERAPY EXTEM C MAXIMUM CLOT FIRMNESS 68 57 - 72 mm 11/03/2024 1:58 AM EDT [facility] RESPIRATORY THERAPY EXTEM C LYSIS INDEX 60 MIN 96 94 - 100 % 11/03/2024 1:58 AM EDT [facility] RESPIRATORY THERAPY EXTEM C MAXIMUM LYSIS 10(H) 0 - 6 % 11/03/2024 1:58 AM EDT [facility] RESPIRATORY THERAPY Comment:MA^Preliminary Resul t Blood 11/03/2024 1:58 AM EDT 11/03/2024 1:58 AM EDT us Ky Ritter MD LAB BLOOD ORDERABLES Final Re sult Performing Organization Address City/[facility]/ZIP Co de Phone Number [facility] RESPIRATORY THERAPY [address] [place] [address], [place] * FIBTEM C (11/03/2024 1:58 AM EDT) FIBTEM C AMPLITUDE 5 MIN 12 5 - 16 mm 11/03/2024 1:58 AM EDT [facility] FIBTEM C AMPLITUDE 10 MIN 13 6 - 17 mm 11/03/2024 1:58 AM EDT [facility] FIBTEM C AMPLITUDE 20 MIN 14 6 - 18 mm 11/03/2024 1:58 AM EDT [facility] RESP[facility] FIBTEM C MAXIMUM CLOT FIRMNESS 15 6 - 19 mm 11/03/2024 1:58 AM EDT [facility] RESP[facility]ER[facility] Blood 11/03/2024 1:58 AM EDT 11/03/2024 1:58 AM EDT us Ky Ritter MD LAB BLOOD ORDERABLES Final Re sult [facility] [address] [place] [address], [place] * (ABNORMAL) CBC (11/03/2024 12:07 AM EDT) [facility] Auto WBC 7.71 4.00 - 10.60 10*3/uL 11/03/2024 12:41 AM EDT [facility] RBC 3.26(L) 3.80 - 5.00 10*6/uL 11/03/2024 12:41 AM EDT [facility]) Hemoglobin 9.7(L) 12.0 - 15.0 g/dL 11/03/2024 12:41 AM EDT [facility]) Hematocrit 29.0(L) 36.0 - 45.0 % 11/03/2024 12:41 AM EDT [facility]) MCV 89.0 82.0 - 98.0 fL 11/03/2024 12:41 AM EDT [facility]) MCH 29.8 27.0 - 33.0 pg 11/03/2024 12:41 AM EDT [facility] ([facility]) MCHC 33.4 32.0 - 35.0 g/dL 11/03/2024 12:41 AM EDT [facility] ([facility]) RDW 13.3 11.5 - 15.0 % 11/03/2024 12:41 AM EDT [facility] ([facility]) Platelets 216 150 - 400 10*3/uL 11/03/2024 12:41 AM EDT [facility] ([facility]) Blood Venous blood specimen / Unknown Existing Catheter / Unknown 11/03/2024 12:07 AM EDT 11/03/2024 12:33 AM EDT us Rosa Willoughby PA-C LAB BLOOD ORDERABLES Final R esult [facility]) [address] [place] [address] * Phosphorus (11/03/2024 12:07 AM EDT) Phosphorus 2.7 2.5 - 5.0 mg/dL 11/03/2024 12:57 AM EDT [facility]) Blood Venous blood specimen / Unknown Existing Catheter / Unknown 11/03/2024 12:07 AM EDT 11/03/2024 12:33 AM EDT us Rosa Willoughby PA-C LAB BLOOD ORDERABLES Final R esult [facility]) [address] [place] [address] * (ABNORMAL) Magnesium (11/03/2024 12:07 AM EDT) Magnesium 1.5(L) 1.9 - 2.7 mg/dL 11/03/2024 12:57 AM EDT [facility]) Blood Venous blood specimen / Unknown Existing Catheter / Unknown 11/03/2024 12:07 AM EDT 11/03/2024 12:33 AM EDT us Rosa Willoughby PA-C LAB BLOOD ORDERABLES Final R esult [facility] ([facility]) [address] [place], [place] [id number] * (ABNORMAL) Basic metabolic panel (11/03/2024 12:07 AM EDT) Sodium 135(L) 136 - 145 mmol/L 11/03/2024 12:57 AM EDT [facility] ([facility]) Potassium 4.9 3.5 - 5.1 mmol/L 11/03/2024 12:57 AM EDT [facility] ([facility]) Chloride 110(H) 98 - 107 mmol/L 11/03/2024 12:57 AM EDT [facility] ([facility]) CO2 20(L) 21 - 31 mmol/L 11/03/2024 12:57 AM EDT [facility] ([facility]) BUN 8 7 - 25 mg/dL 11/03/2024 12:57 AM EDT [facility] ([facility]) Creatinine 0.53(L) 0.60 - 1.20 mg/dL 11/03/2024 12:57 AM EDT [facility] ([facility]) Glucose 168(H) 70 - 100 mg/dL 11/03/2024 12:57 AM EDT [facility] ([facility]) Calcium 7.6(L) 8.6 - 10.3 mg/dL 11/03/2024 12:57 AM EDT [facility] ([facility]) Anion Gap 10 7 - 20 mmol/L 11/03/2024 12:57 AM EDT [facility] ([facility]) eGFR 123.6 >60.0 mL/min/1. 73m*2 11/03/2024 12:57 AM EDT [facility] ([facility]) Comment:[facility] s estimated glomerular filtration rate (eGFR) will [...] any one group of individuals. BUN/Creatinine Ratio 15.1 10/16 12:57 AM EDT [facility]) Blood Venous blood specimen / Unknown Existing Catheter / Unknown 11/03/2024 12:07 AM EDT 11/03/2024 12:33 AM EDT us Rosa Willoughby PA-C LAB BLOOD ORDERABLES Final R esult Performing Organization Address City/[facility]/ZIP Co de Phone Number [facility]) [address] [place] [id number] * Fibrinogen (11/03/2024 12:07 AM EDT) Fibrinogen 328 150 - 425 mg/dL 11/03/2024 12:53 AM EDT [facility]) Blood Venous blood specimen / Unknown Existing Catheter / Unknown 11/03/2024 12:07 AM EDT 11/03/2024 12:27 AM EDT us Jose Angel Fox MD LAB BLOOD ORDERABLES Final Resu lt Performing Organization Address City/[facility]/ZIP Co de Phone Number [facility]) [address] [place] [address] * (ABNORMAL) Protime-INR (11/03/2024 12:07 AM EDT) Protime 14.9(H) 12.3 - 14.8 Seconds 11/03/2024 12:53 AM EDT [facility]) INR 1.17(H) 0.90 - 1.10 11/03/2024 12:53 AM EDT [facility]) Comment: [facility] RECOMMENDED INR FOR WARFARIN THERAPY CONDITION INR PROPHYLAXIS OF VENOUS THROMBOSIS 2-3 (HIGH-RISK SURGERY) TREATMENT OF VENOUS THROMBOSIS 2-3 TREATMENT OF PULMONARY EMBOLISM 2-3 PREVENTION OF SYSTEMIC EMBOLISM: 2-3 ACUTE MYOCARDIAL INFARCTION TISSUE HEART VALVES VALVULAR HEART DISEASE ATRIAL FIBRILLATION RECURRENT SYSTEMIC EMBOLISM MECHANICAL HEART VALVE 2.5-3.5 FROM: ORAL ANTICOAGULANTS. MECHANISM OF ACTION, CLINICAL EFFECTIVENESS, AND OPTIMAL THERAPEUTIC RANGE. CHEST 1995;108:[id number]-246S. Blood Venous blood specimen / Unknown Existing Catheter / Unknown 11/03/2024 12:07 AM EDT 11/03/2024 12:27 AM EDT us Jose Angel Fox MD LAB BLOOD ORDERABLES Final Resu lt [facility]) [address] [place] [address] * (ABNORMAL) POCT glucose meter (11/02/2024 10:48 PM EDT) [facility] Glucose POC 151(H) 70 - 105 mg/dL 11/02/2024 10:59 PM EDT [facility] ([facility]) Comment:asavona Blood Capillary blood specimen / Unknown 11/02/2024 10:48 PM EDT 11/02/2024 10:59 PM EDT Narrative [facility]) - 11/02/2024 10:59 PM EDT Waived Testing in the ED is performed under the ED CLIA certificate #[id number]. us Ky Ritter MD LAB BLOOD ORDERABLES Final Re sult [facility]) [address] [place], [place] [id number] * Transfuse RBC (11/02/2024 9:35 PM EDT) us Tarik Mayers CAA BLOOD TRANSFUSION ORDERABLES Fi nal Result * Transfuse RBC (11/02/2024 9:32 PM EDT) us Tarik Talib CAA BLOOD TRANSFUSION ORDERABLES Fi nal Result * (ABNORMAL) POCT glucose meter (11/02/2024 8:30 PM EDT) Glucose POC 160(H) 70 - 105 mg/dL 11/02/2024 8:41 PM EDT [facility] ([facility]) Comment: Blood Capillary blood specimen / Unknown 11/02/2024 8:30 PM EDT 11/02/2024 8:41 PM EDT Narrative [facility]) - 11/02/2024 8:41 PM EDT Waived Testing in the ED is performed under the ED CLIA certificate #[id number]. us Ky Ritter MD LAB BLOOD ORDERABLES Final Re sult [facility] ([facility]) [address] [place] [address] * Prepare RBC: 1 Units (11/02/2024 8:05 PM EDT) PRODUCT CODE [id number] [facility] BL O[facility] Unit Number [id number] [facility] BLO[facility] Unit ABO O [facility] BLO[facility] Unit Rh POS [facility] BLOOD [facility] Crossmatch Interpretation COMP [facility] BLOOD [facility] Dispense Status TR [facility] BLOOD [facility] Blood Expiration Date [facility] BLOOD [facility] Product Blood Type 5100 [facility] BLOOD B[facility] Unit Volume 300 ML [facility] BLO OD BANK Other 11/02/2024 8:05 PM EDT us Tomasa Disla MD BLOOD BANK PRODUCT ORDER JIN Final Result [facility] BLOOD [facility] * Prepare RBC: 2 Units (11/02/2024 8:05 PM EDT) PRODUCT CODE [id number] [facility] Unit Number [id number] [facility] BLOOD [facility] Unit ABO O [facility] BLO[facility] Unit Rh POS [facility] BLOOD BANK Crossmatch Interpretation COMP [facility] BLOOD [facility] Dispense Status TR [facility] BLOOD [facility] Blood Expiration Date [facility] BLOOD [facility] Product Blood Type 5100 [facility] BLOOD [facility] Unit Volume 300 ML [facility] BLO OD BANK PRODUCT CODE [id number] [facility] Unit Number [id number] [facility] BLOOD BANK Unit ABO O [facility] BLOOD [facility] Unit Rh POS [facility] BLOOD B[facility] Crossmatch Interpretation COMP [facility] BLOOD [facility] Dispense Status TR [facility] BLOOD [facility] Blood Expiration Date [facility] BLOOD B[facility] Product Blood Type 5100 [facility] BLOOD B[facility] Other 11/02/2024 8:05 PM EDT Wali Collins MD BLOOD BANK PRODUCT ORDERAB LES Final Result [facility] BLOOD B[facility] * Type and screen (11/02/2024 8:02 PM EDT) ABO Grouping O 11/02/2024 8:42 PM EDT [facility] BLOOD BANK Rh Type POS 11/02/2024 8:42 PM EDT [facility] BLOOD B[facility] Ab Scrn NEG 11/02/2024 8:42 PM EDT [facility] BLOOD [facility] Blood Venous blood specimen / Unknown Existing Catheter / Unknown 11/02/2024 8:02 PM EDT 11/02/2024 8:02 PM EDT Wali Collins MD LAB BLOOD BANK TEST ORDERA BLES Final Result [facility] BLOOD BANK * (ABNORMAL) CBC (11/02/2024 8:02 PM EDT) Auto WBC 9.01 4.00 - 10.60 10*3/uL 11/02/2024 8:13 PM EDT [facility] ([facility]) RBC 3.18(L) 3.80 - 5.00 10*6/uL 11/02/2024 8:13 PM EDT [facility] ([facility]) Hemoglobin 9.4(L) 12.0 - 15.0 g/dL 11/02/2024 8:13 PM EDT [facility] ([facility]) Hematocrit 28.9(L) 36.0 - 45.0 % 11/02/2024 8:13 PM EDT [facility] ([facility]) MCV 90.9 82.0 - 98.0 fL 11/02/2024 8:13 PM EDT [facility] ([facility]) MCH 29.6 27.0 - 33.0 pg 11/02/2024 8:13 PM EDT [facility] ([facility]) MCHC 32.5 32.0 - 35.0 g/dL 11/02/2024 8:13 PM EDT [facility] ([facility]) RDW 13.2 11.5 - 15.0 % 11/02/2024 8:13 PM EDT [facility] ([facility]) Platelets 358 150 - 400 10*3/uL 11/02/2024 8:13 PM EDT [facility] ([facility]) Blood Venous blood specimen / Unknown Existing Catheter / Unknown 11/02/2024 8:02 PM EDT 11/02/2024 8:02 PM EDT us Wali Collins MD LAB BLOOD ORDERABLES Final Result [facility] ([facility]) [address] [place] [address] * Red Top (11/02/2024 8:00 PM EDT) Extra Tube Hold for add-ons. 11/02/2024 10:02 PM EDT [facility] ([facility]) Comment:Auto resulted. Blood Venous blood specimen / Unknown 11/02/2024 8:00 PM EDT 11/02/2024 8:19 PM EDT us Ky Ritter MD LAB BLOOD ORDERABLES Final Re sult [facility]) [address] [place] [address] * (ABNORMAL) Activated clotting time (11/02/2024 4:43 PM EDT) Activated Clotting Time 176(H) 82 - 152 s 11/02/2024 5:54 PM EDT [facility]) Blood Venous blood specimen / Unknown 11/02/2024 4:43 PM EDT 11/02/2024 5:54 PM EDT us Ky Ritter MD LAB POINT OF CARE TE ST DOCKED DEVICE UNSOLICITED RESULTS Final Result [facility]) [address] [place] [address] * (ABNORMAL) POCT activated clotting time manually resulted (11/02/2024 4:40 PM EDT) Activated Clotting Time POC 176(A) 82 - 152 sec Blood Venous blood specimen / Unknown 11/02/2024 4:40 PM EDT us Ky Ritter MD POINT OF CARE TEST ENTER/EDIT ORDERABLES Final Result * (ABNORMAL) POCT activated clotting time manually resulted (11/02/2024 4:19 PM EDT) Activated Clotting Time POC 186(A) 82 - 152 sec Blood Venous blood specimen / Unknown 11/02/2024 4:19 PM EDT us Ky Ritter MD POINT OF CARE TEST ENTER/EDIT ORDERABLES Final Result * (ABNORMAL) Activated clotting time (11/02/2024 4:13 PM EDT) Activated Clotting Time 186(H) 82 - 152 s 11/02/2024 5:54 PM EDT [facility] ([facility]) Blood Venous blood specimen / Unknown 11/02/2024 4:13 PM EDT 11/02/2024 5:54 PM EDT us Ky Ritter MD LAB POINT OF CARE TE ST DOCKED DEVICE UNSOLICITED RESULTS Final Result Performing Organization Address City/[facility]/ZIP Co de Phone Number [facility]) [address] [place] [address] * (ABNORMAL) Activated clotting time (11/02/2024 2:56 PM EDT) Activated Clotting Time 227(H) 82 - 152 s 11/02/2024 3:02 PM EDT [facility] ([facility]) Blood Venous blood specimen / Unknown 11/02/2024 2:56 PM EDT 11/02/2024 3:02 PM EDT Ky Ritter MD LAB POINT OF CARE TE ST DOCKED DEVICE UNSOLICITED RESULTS Final Result Performing Organization Address City/[facility] Co de Phone Number [facility]) [address] [place] [address] * CORONARY ANGIOGRAPHY, ULTRASOUND - CORONARY, INSTANT WAVE FREE RATIO (IFR) (11/02/2024 2:53 PM EDT) Anatomical Region Laterality Modality Other Narrative 11/02/2024 3:18 PM EDT PROCEDURE PHYSICIAN: Wali Collins MD Clinical Presentation: 34 y.o. 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 The MLA by IVUS was 2.9 mm2 2) Non-significant iFR of 0.92 and 0.93 Recommendations: 1) Continued medical management of non-flow limiting coronary dissection with addition of calcium antagonist for possible coronary spasm at the site of dissection Procedures Performed: coronary angiography, intravascular ultrasound LAD, iFR determination Omni guidewire, conscious sedation (see attached sheet for details), ultrasound guidance for vascular access Procedure Description: Due to recurrent chest pain and increase in troponin values the patient was brought to the cardiac catheterization lab . Informed written consent was obtained. she was prepped and draped in usual sterile fashion. Time-out was performed. she was given Versed and fentanyl for sedation. 1% lidocaine was infiltrated over the right femoral artery. A 6-Iranian sheath was placed in right femoral artery. Coronary angiography was performed with a JL4 and then repeated after IC nitroglycerin 50 mcg x 2. At this time, it was apparent that the LAD had a moderate stenosis and IVUS and iFR were performed. Heparin anticoagulation was used for this procedure. ACT was maintained at >250 seconds. A 6 Iranian xb3 was engaged to the [place]. I then advanced a 0.014 guidewire to the distal left anterior descending. IVUS imaging was performed with a Refinity catheter after additional IC nitroglycerin and IV nitroglycerin Next, an Omni wire was placed and an iFR performed x2 after normalizing pressures. After completion of the procedure all catheters and wires were removed. The right femoral sheath was removed and manual pressure was applied to obtain hemostasis. Specimens Removed: None Complications: None Coronary Angiogram: Left main: Normal LAD: In the mid vessel there is an area of myocardial bridging followed by a discrete angiographic stenosis. The entire segment increased in diameter with IV nitroglycerin. On the delayed image there is persistence of contrast along the lateral wall of the LAD in a linear fashion consistent with but not diagnostic for a dissection flap LCX: Normal RCA: not imaged. Was imaged one and two days prior Intravascular ultrasound: In the mid vessel there is an atherosclerotic plaque with a MLA of 2.9 mm2 Distal to this the vessel is 3 mm in diameter. At the site of plaque there is a discrete dissection. 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] Unstable angina us Ky Ritter MD CV CARDIAC CATH PROCEDURES Fi nal Result * (ABNORMAL) Activated clotting time (11/02/2024 2:24 PM EDT) Activated Clotting Time 339(H) 82 - 152 s 11/02/2024 2:28 PM EDT [facility]) Blood Venous blood specimen / Unknown 11/02/2024 2:24 PM EDT 11/02/2024 2:28 PM EDT Ky Ritter MD LAB POINT OF CARE TE ST DOCKED DEVICE UNSOLICITED RESULTS Final Result Performing Organization Address City/[facility]/ZIP Co de Phone Number [facility]) [address] [place] [address] * ECG 12 lead (11/02/2024 1:18 PM EDT) Ventricular Rate 74 BPM GE MUSE Atrial Rate 74 BPM GE MUSE MA Interval 138 ms GE MUSE QRS DURATION 84 ms GE MUSE QT Interval 454 ms GE MUSE QTC CALCULATION(BAZE TT) 503 ms GE MUSE P [place] 54 degrees GE MUSE R-[place] 41 degrees GE MUSE T Wave [place] 77 degrees GE MUSE 11/02/2024 1:02 PM EDT 11/02/2024 10:58 PM EDT Impressions GE MUSE - 11/02/2024 10:58 PM EDT Normal sinus rhythm T abnormalities consider high lateral ischemia Mild ST elevation in V2 and V3 , consider acute septal injury Abnormal ECG Confirmed by Griffin Diaz ([id number]) on 11/02/2024 10:58:13 PM Narrative Procedure Note Jonelle Harrison MD - 11/02/2024 IMPRESSION: Normal sinus rhythm T abnormalities consider high lateral ischemia Mild ST elevation in V2 and V3 , consider acute septal injury Abnormal ECG Confirmed by Griffin Diaz ([id number]) on 11/02/2024 10:58:13 PM us Ky Ritter MD ECG ORDERABLES Final Result GE [facility] * (ABNORMAL) High Sensitivity Troponin I (11/02/2024 1:01 PM EDT) High Sensitivity Troponin I 47(H) <15 ng/L 11/02/2024 1:57 PM EDT [facility] ([facility]) Blood Venous blood specimen / Unknown Existing Catheter / Unknown 11/02/2024 1:01 PM EDT 11/02/2024 1:19 PM EDT Ky Ritter MD LAB BLOOD ORDERABLES Final Re sult Performing Organization Address City/[facility]/ZIP Co de Phone Number [facility]) [address] [place] [address] * (ABNORMAL) POCT glucose meter (11/02/2024 11:07 AM EDT) Glucose POC 115(H) 70 - 105 mg/dL 11/02/2024 11:18 AM EDT [facility] ([facility]) Comment:[email or web address] Blood Capillary blood specimen / Unknown 11/02/2024 11:07 AM EDT 11/02/2024 11:18 AM EDT Narrative [facility]) - 11/02/2024 11:18 AM EDT Waived Testing in the ED is performed under the ED CLIA certificate #[id number]. us Ky Ritter MD LAB BLOOD ORDERABLES Final Re sult Performing Organization Address City/[facility]/ZIP Co de Phone Number [facility]) [address] [place] [address] * (ABNORMAL) POCT glucose meter (11/02/2024 7:31 AM EDT) Glucose POC 150(H) 70 - 105 mg/dL 11/02/2024 7:42 AM EDT [facility] ([facility]) Comment:[email or web address] Blood Capillary blood specimen / Unknown 11/02/2024 7:31 AM EDT 11/02/2024 7:42 AM EDT Narrative [facility] ([facility]) - 11/02/2024 7:42 AM EDT Waived Testing in the ED is performed under the ED CLIA certificate #[id number]. us Ky Ritter MD LAB BLOOD ORDERABLES Final Re sult Performing Organization Address City/[facility]/ZIP Co de Phone Number [facility] ([facility]) [address] [place] [address] * Light Green Top (11/02/2024 6:15 AM EDT) Extra Tube Hold for add-ons. 11/02/2024 8:01 AM EDT [facility] ([facility]) Comment:Auto resulted. Blood Venous blood specimen / Unknown Existing Catheter / Unknown 11/02/2024 6:15 AM EDT 11/02/2024 6:38 AM EDT Ky Ritter MD LAB BLOOD ORDERABLES Final Re sult Performing Organization Address [facility]/ZIP Co de Phone Number [facility] ([facility]) [address] [place] [address] * (ABNORMAL) CBC (11/02/2024 6:15 AM EDT) Auto WBC 4.49 4.00 - 10.60 10*3/uL 11/02/2024 7:18 AM EDT [facility] ([facility]) RBC 3.69(L) 3.80 - 5.00 10*6/uL 11/02/2024 7:18 AM EDT [facility] ([facility]) Hemoglobin 10.8(L) 12.0 - 15.0 g/dL 11/02/2024 7:18 AM EDT [facility] ([facility]) Hematocrit 33.3(L) 36.0 - 45.0 % 11/02/2024 7:18 AM EDT [facility] ([facility]) MCV 90.2 82.0 - 98.0 fL 11/02/2024 7:18 AM EDT [facility] ([facility]) MCH 29.3 27.0 - 33.0 pg 11/02/2024 7:18 AM EDT [facility] ([facility]) MCHC 32.4 32.0 - 35.0 g/dL 11/02/2024 7:18 AM EDT [facility] ([facility]) RDW 13.4 11.5 - 15.0 % 11/02/2024 7:18 AM EDT [facility] ([facility]) Platelets 292 150 - 400 10*3/uL 11/02/2024 7:18 AM EDT [facility] ([facility]) Blood Venous blood specimen / Unknown 11/02/2024 6:15 AM EDT 11/02/2024 6:37 AM EDT us Debbie Luna CNP LAB BLOOD ORDERABLES Final Resu lt Performing Organization Address City/[facility]/ZIP Co de Phone Number [facility]) [address] [place] [address] * (ABNORMAL) POCT glucose meter (11/01/2024 8:42 PM EDT) Glucose POC 106(H) 70 - 105 mg/dL 11/01/2024 8:54 PM EDT [facility]) Comment:[email or web address] Blood Capillary blood specimen / Unknown 11/01/2024 8:42 PM EDT 11/01/2024 8:54 PM EDT Narrative [facility]) - 11/01/2024 8:54 PM EDT Waived Testing in the ED is performed under the ED CLIA certificate #[id number]. us Ky Ritter MD LAB BLOOD ORDERABLES Final Re sult [facility]) [address] [place] [address] * POCT glucose meter (11/01/2024 6:04 PM EDT) Glucose POC 102 70 - 105 mg/dL 11/01/2024 6:20 PM EDT [facility] ([facility]) Comment:[email or web address] Blood Capillary blood specimen / Unknown 11/01/2024 6:04 PM EDT 11/01/2024 6:20 PM EDT Narrative [facility] ([facility]) - 11/01/2024 6:20 PM EDT Waived Testing in the ED is performed under the ED CLIA certificate #[id number]. us Ky Ritter MD LAB BLOOD ORDERABLES Final Re sult [facility]) [address] [place] [address] * (ABNORMAL) Activated clotting time (11/01/2024 4:36 PM EDT) Activated Clotting Time 160(H) 82 - 152 s 11/02/2024 12:11 PM EDT [facility] ([facility]) Blood Venous blood specimen / Unknown 11/01/2024 4:36 PM EDT 11/02/2024 12:11 PM EDT us Ky Ritter MD LAB POINT OF CARE TE ST DOCKED DEVICE UNSOLICITED RESULTS Final Result Performing Organization Address [facility]/ZIP Co de Phone Number [facility]) [address] [place] [address] * (ABNORMAL) POCT activated clotting time docked device (11/01/2024 4:33 PM EDT) Activated Clotting Time POC 160(A) 82 - 152 sec [facility] ([facility]) Blood 11/01/2024 4:33 PM EDT us Ky Ritter MD LAB POINT OF CARE TEST DOCKED DEVICE ORDERABLES Final Result Performing Organization Address City/[facility]/ZIP Co de Phone Number [facility]) [address] [place] [address] * CORONARY ANGIOGRAPHY, ULTRASOUND - CORONARY (11/01/2024 1:30 PM EDT) Anatomical Region Laterality Modality Other Narrative 11/01/2024 1:59 PM EDT PROCEDURE PHYSICIAN: Mitchell Agustin MD Clinical Presentation: 34 y.o. Female with history of hypertension, hyperlipidemia, asthma, RICHAR, hypothyroidism, GERD, IBS, DM2, median arcuate ligament syndrome s/p celiac plexus block and then MALS release, morbid obesity s/p sleeve gastrectomy, extensive chronic adhesions and recurrent obstructions, gastroparesis s/p J-tube and removal d/t infection, failure to thrive and now on TPN presents a direct admission from [facility] with chief complaint of chest pain. She is diagnosed with NSTEMI. She had coronary angiogram yesterday but it could not be completed due to radial artery vasospasm. She is now presenting for a repeat coronary angiogram with femoral access. Final Impression: 1) Coronary angiogram and IVUS demonstrate focal SCAD (Type 3 SCAD) in the mid LAD. Since there is good coronary artery blood flow and the SCAD is non-flow limiting, medical therapy is recommended Plan: 1) optimal med therapy for SCAD 2) Aspirin and plavix DAPT; can finish Plavix in 1 to 3 months and continue lifelong aspirin 81 mg daily 3) Lifelong beta-reece is recommended for prevention of recurrent SCAD Procedures Performed: coronary angiogram, IVUS LAD, conscious sedation 49 min, ultrasound guidance for vascular access Procedure Description: The patient was brought to the cardiac catheterization lab in a fasting state. Informed written consent was obtained. she was prepped and draped in usual sterile fashion over the bilateral groins. Time-out was performed. she was given Versed and fentanyl for sedation. 1% lidocaine was infiltrated over the right femoral artery. A 5-Iranian Terumo sheath was placed in right femoral artery. Limited femoral angiogram showed adequate placement in the right common femoral artery. Coronary angiogram was performed with a JL4 to engage the left main and a JR4 to engage the RCA. Coronary angiogram was performed in multiple orthogonal views. At this time, it was apparent that the mid LAD had intermediate stenosis. I decided to proceed with PCI. Heparin anticoagulation was used for this procedure. ACT was maintained at >250 seconds. A 5 Iranian Cordis XB 3.0 guide was engaged to the left main. I decided to proceed with IVUS. I then advanced a Runthrough wire to the distal left anterior descending. Next, I advanced a Clinithink IVUS catheter. IVUS imaging was performed and automated pullback was performed. Based on IVUS, we identified focal SCAD (type 3) with intramural hematoma. All catheters and wires were removed. The right femoral sheath will be removed once ACT is within range and manual pressure will be applied to obtain hemostasis. Specimens Removed: None Complications: None Coronary Angiogram: Left main: large trifurcating left main which is patent LAD: the LAD is a large vessel the mid segment of the LAD has a focal 40 to 50% stenosis. This area was further interrogated with IVUS. IVUS imaging showed evidence SCAD with intramural hematoma in a focal segment. Ramus: Patent LCX: normal; large and dominant left circumflex coronary artery RCA: small, nondominant vessel with diffuse tapering throughout the mid segment with very small caliber Study Details NSTEMI us Ky Ritter MD CV CARDIAC CATH PROCEDURES Fi nal Result * (ABNORMAL) Activated clotting time (11/01/2024 1:27 PM EDT) [facility] Activated Clotting Time 332(H) 82 - 152 s 11/01/2024 1:37 PM EDT [facility] [place] ([facility]) Blood Venous blood specimen / Unknown 11/01/2024 1:27 PM EDT 11/01/2024 1:36 PM EDT Ky Ritter MD LAB POINT OF CARE TE ST DOCKED DEVICE UNSOLICITED RESULTS Final Result [facility] ([facility]) [address] [place] [address] * (ABNORMAL) Activated clotting time (11/01/2024 1:14 PM EDT) Pathologist [facility] Activated Clotting Time 222(H) 82 - 152 s 11/01/2024 1:19 PM EDT [facility] ([facility]) Blood Venous blood specimen / Unknown 11/01/2024 1:14 PM EDT 11/01/2024 1:19 PM EDT us Ky Ritter MD LAB POINT OF CARE TE ST DOCKED DEVICE UNSOLICITED RESULTS Final Result [facility] ([facility]) [address] [place] [address] * ECG 12 lead (11/01/2024 12:09 PM EDT) Ventricular Rate 76 BPM GE MUSE Atrial Rate 76 BPM GE MUSE MA Interval 132 ms GE MUSE QRS DURATION 84 ms GE MUSE QT Interval 444 ms GE MUSE QTC CALCULATION(BAZE TT) 499 ms GE MUSE P [place] 72 degrees GE MUSE R-[place] 50 degrees GE MUSE T Wave [place] 89 degrees GE MUSE 11/01/2024 11:5 7 AM EDT 11/01/2024 11:37 PM EDT Impressions GE MUSE - 11/01/2024 11:37 PM EDT Normal sinus rhythm T ciro, consider anterior and high lateral ischemia Prolonged QT Abnormal ECG Confirmed by Griffin Diaz ([id number]) on 11/01/2024 11:37:39 PM Narrative Procedure Note Jonelle Harrison MD - 11/01/2024 IMPRESSION: Normal sinus rhythm T ciro, consider anterior and high lateral ischemia Prolonged QT Abnormal ECG Confirmed by Griffin Diaz ([id number]) on 11/01/2024 11:37:39 PM us Ky Ritter MD ECG ORDERABLES Final Result [facility] * (ABNORMAL) POCT glucose meter (11/01/2024 11:30 AM EDT) Glucose POC 109(H) 70 - 105 mg/dL 11/01/2024 12:44 PM EDT [facility] ([facility]) Comment:[email or web address] Blood Capillary blood specimen / Unknown 11/01/2024 11:30 AM EDT 11/01/2024 12:44 PM EDT Narrative [facility] ([facility]) - 11/01/2024 12:44 PM EDT Waived Testing in the ED is performed under the ED CLIA certificate #[id number]. us Ky Ritter MD LAB BLOOD ORDERABLES Final Re sult [facility] ([facility]) [address] [place] [address] * (ABNORMAL) Basic metabolic panel (11/01/2024 10:10 AM EDT) Sodium 137 136 - 145 mmol/L 11/01/2024 10:50 AM EDT [facility] ([facility]) Potassium 4.6 3.5 - 5.1 mmol/L 11/01/2024 10:50 AM EDT [facility] ([facility]) Chloride 106 98 - 107 mmol/L 11/01/2024 10:50 AM EDT [facility] ([facility]) CO2 27 21 - 31 mmol/L 11/01/2024 10:50 AM EDT [facility] ([facility]) BUN 9 7 - 25 mg/dL 11/01/2024 10:50 AM T [facility] ([facility]) Creatinine 0.53(L) 0.60 - 1.20 mg/dL 11/01/2024 10:50 AM EDT [facility] ([facility]) Glucose 98 70 - 100 mg/dL 11/01/2024 10:50 AM T [facility] ([facility]) Calcium 8.6 8.6 - 10.3 mg/dL 11/01/2024 10:50 AM T [facility] ([facility]) Anion Gap 9 7 - 20 mmol/L 11/01/2024 10:50 AM T [facility] ([facility]) eGFR 123.6 >60.0 mL/min/1. 73m*2 11/01/2024 10:50 AM EDT [facility] ([facility]) Comment:[facility] s estimated glomerular filtration rate (eGFR) will [...] any one group of individuals. BUN/Creatinine Ratio 17.0 10/16 10:50 AM EDT [facility] ([facility]) Blood Venous blood specimen / Unknown Existing Catheter / Unknown 11/01/2024 10:10 AM EDT 11/01/2024 10:25 AM EDT Ky Ritter MD LAB BLOOD ORDERABLES Final Re sult [facility]) [address] [place] [address] * (ABNORMAL) CBC (11/01/2024 10:10 AM EDT) Auto WBC 4.80 4.00 - 10.60 10*3/uL 11/01/2024 10:40 AM EDT [facility] ([facility]) RBC 3.87 3.80 - 5.00 10*6/uL 11/01/2024 10:40 AM EDT [facility] ([facility]) Hemoglobin 11.3(L) 12.0 - 15.0 g/dL 11/01/2024 10:40 AM EDT [facility] ([facility]) Hematocrit 34.6(L) 36.0 - 45.0 % 11/01/2024 10:40 AM EDT [facility] ([facility]) MCV 89.4 82.0 - 98.0 fL 11/01/2024 10:40 AM EDT [facility] ([facility]) MCH 29.2 27.0 - 33.0 pg 11/01/2024 10:40 AM EDT [facility] ([facility]) MCHC 32.7 32.0 - 35.0 g/dL 11/01/2024 10:40 AM EDT [facility] ([facility]) RDW 13.2 11.5 - 15.0 % 11/01/2024 10:40 AM EDT [facility] ([facility]) Platelets 300 150 - 400 10*3/uL 11/01/2024 10:40 AM EDT [facility] ([facility]) Blood Venous blood specimen / Unknown Existing Catheter / Unknown 11/01/2024 10:10 AM EDT 11/01/2024 10:25 AM EDT Ky Ritter MD LAB BLOOD ORDERABLES Final Re sult [facility]) [address], [place] [id number] * (ABNORMAL) POCT glucose meter (11/01/2024 7:43 AM EDT) Glucose POC 162(H) 70 - 105 mg/dL 11/01/2024 7:55 AM EDT [facility] ([facility]) Comment:[email or web address] Blood Capillary blood specimen / Unknown 11/01/2024 7:43 AM EDT 11/01/2024 7:55 AM EDT Narrative [facility] ([facility]) - 11/01/2024 7:55 AM EDT Waived Testing in the ED is performed under the ED CLIA certificate #[id number]. Ky Ritter MD LAB BLOOD ORDERABLES Final Re sult [facility] ([facility]) [address], [place] [id number] * (ABNORMAL) High Sensitivity Troponin I (11/01/2024 6:42 AM EDT) High Sensitivity Troponin I 19(H) <15 ng/L 11/01/2024 7:02 AM EDT [facility] ([facility]) Blood Venous blood specimen / Unknown Existing Catheter / Unknown 11/01/2024 6:42 AM EDT 11/01/2024 6:42 AM EDT us Debbie Luna BEEF SPECIALIST LAB BLOOD ORDERABLES Final Resu lt [facility] ([facility]) [address] [place] [address] * (ABNORMAL) Anti-Xa (Heparin Level) (11/01/2024 6:04 AM EDT) Anti-Xa (Heparin) 0.27(L) 0.3 - 0.7 IU/mL 11/01/2024 6:37 AM EDT [facility] ([facility]) Comment:Rivaroxaban and Apix aban will interfere with the anti Xa assay used to monitor UFH and LMWH. Blood Blood sample taken from central line / Unknown Existing Catheter / Unknown 11/01/2024 6:04 AM EDT 11/01/2024 6:15 AM EDT us Ky Ritter MD LAB BLOOD ORDERABLES Final Re sult Performing Organization Address [facility]/ZIP Co de Phone Number [facility]) [address] [place] [address] * (ABNORMAL) POCT glucose meter (11/01/2024 6:02 AM EDT) Glucose POC 114(H) 70 - 105 mg/dL 11/01/2024 6:13 AM EDT [facility] ([facility]) Comment:[email or web address] Blood Capillary blood specimen / Unknown 11/01/2024 6:02 AM EDT 11/01/2024 6:13 AM EDT Narrative [facility] ([facility]) - 11/01/2024 6:13 AM EDT Waived Testing in the ED is performed under the ED CLIA certificate #[id number]. Ky Ritter MD LAB BLOOD ORDERABLES Final Re sult [facility] ([facility]) [address], [place] [id number] * (ABNORMAL) Toxicology Screen, Urine (11/01/2024 2:12 AM EDT) Pathologist [facility] Barbiturates Negative Negative 11/01/2024 2:57 AM EDT [facility] ([facility]) Benzodiazepines Positive(A) Negative 11/02/19 2:57 AM EDT [facility] ([facility]) Propoxyphene Negative Negative 11/01/2024 2:57 AM EDT [facility] ([facility]) Methadone Negative Negative 11/01/2024 2:57 AM EDT [facility] ([facility]) Tricyclics Negative Negative 11/01/2024 2:57 AM EDT [facility] ([facility]) Phencyclidine Negative Negative 11/01/2024 2:57 AM EDT [facility] ([facility]) Opiates Positive(A) Negative 11/01/2024 2:57 AM EDT [facility] ([facility]) Cocaine Negative Negative 11/01/2024 2:57 AM EDT [facility] ([facility]) Amphetamines/Metha mphetamine Negative Negative 11/01/2024 2:57 AM EDT [facility] ([facility]) Cannabinoid Negative Negative 11/01/2024 2:57 AM EDT [facility] ([facility]) Urine Urine specimen obtained by clean catch procedure / Unknown Non-blood Collection / Unknown 11/01/2024 2:12 AM EDT 11/01/2024 2:18 AM EDT Narrative [facility] ([facility]) - 11/01/2024 2:57 AM EDT Unconfirmed screening results should only be used for medical purposes. us Ky Ritter MD LAB URINE ORDERABLES Final Re sult [facility] ([facility]) [address], [place] [id number] * POCT glucose meter (10/31/2024 8:20 PM EDT) [facility] Glucose POC 90 70 - 105 mg/dL 10/31/2024 8:33 PM EDT [facility] ([facility]) Comment:[email or web address] Blood Capillary blood specimen / Unknown 10/31/2024 8:20 PM EDT 10/31/2024 8:33 PM EDT Narrative [facility] ([facility]) - 10/31/2024 8:33 PM EDT Waived Testing in the ED is performed under the ED CLIA certificate #[id number]. us Ky Ritter MD LAB BLOOD ORDERABLES Final Re sult [facility] ([facility]) [address] [place] [address] * CORONARY ANGIOGRAPHY, LEFT HEART CATH (10/31/2024 7:34 PM EDT) Anatomical Region Laterality Modality Other Narrative 10/31/2024 7:51 PM EDT PROCEDURE PHYSICIAN: Tino Gilmore MD . Indications: Juan Kong is a 34 y.o. female who is admitted with chest pain and elevated troponin as well as EKG changes. She was diagnosed NSTEMI and referred for cardiac catheterization. Assistants: Cardiovascular Fellow Dr Janet Soto. Procedure Performed: Coronary angiogram. Left heart catheterization. Administration of intraarterial nitroglycerin to treat radial artery spasm. Access into the left radial artery under ultrasound guidance. Methods: Procedure was explained to the patient with risks and benefits; she signed informed consent. 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 The left wrist area was prepped and draped in usual fashion. Micropuncture technique was used for access in the radial artery. A 5-Iranian x 11 cm sheath was placed. Verapamil was given through the sheath, and heparin was administered intravenously. A 5 Iranian JR4 diagnostic catheter was advanced and this was used to perform left heart catheterization with measurement of pressures. Pullback across aortic valve was performed with measurement of pressures. The catheter was used to attempt engagement of the right coronary artery however this was not possible. At this point the patient started developing radial artery spasm. This was treated by administration of intra-arterial nitroglycerin. The catheter was then downsized to a 4 Iranian JR4 diagnostic catheter however this also was not able to engage the right coronary artery. Catheter was exchanged to a JR4 diagnostic catheter which could not engage the left coronary artery. Catheter was exchanged to a 4 Iranian JL 3.5 diagnostic catheter which eventually was able to engage the left coronary artery. Angiography was performed in multiple views. Catheter was exchanged over the wire to a 4 Iranian 3DRC catheter. Multiple attempts were made to engage the right coronary artery however these failed. Nonselective aortic root angiography was performed however there was no evidence of opacification of the origin of the right coronary artery. At this point the patient developed additional spasm in the radial artery with significant pain which prevented further manipulation of the catheter. At this point the catheter was retracted. Intra-arterial nitroglycerin was administered through the radial sheath. The procedure was concluded. Hemostasis was achieved by TR band in the radial artery. she tolerated the procedure well and was transferred back to the hospital room. Hemodynamic Data: LV: 159/9, 19 AO: 159/92 (121) Coronary angiography: This is a left-dominant circulation. Left Main: This arises from the left coronary cusp. It bifurcates into left anterior descending and circumflex vessels. This is angiographically normal. Left anterior descending: Mild disease is noted in the mid segment of the LAD. The rest of the LAD is free of disease. Circumflex: This is a dominant vessel. This is angiographically normal. Right coronary artery: There was inability to engage the right coronary artery and the origin of the artery was not apparent on nonselective aortic root injections. 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 Impression/Findings: Mild disease in the LAD. 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 Mildly to moderately elevated left filling pressures. No aortic stenosis. Plan: Aspirin 81 mg daily. Statin therapy. The patient will be scheduled for cardiac catheterization to be performed from the femoral access given limitations of radial access due to spasm. Further recommendations per inpatient Cardiology service. Tino Gilmore MD Study Details NSTEMI (non-ST elevated myocardial infarction) ([facility]) [I21.4] us Ky Ritter MD CV CARDIAC CATH PROCEDURES Fi nal Result * POCT glucose meter (10/31/2024 11:55 AM EDT) Glucose POC 82 70 - 105 mg/dL 10/31/2024 12:06 PM EDT [facility] ([facility]) Comment:[email or web address] Blood Capillary blood specimen / Unknown 10/31/2024 11:55 AM EDT 10/31/2024 12:06 PM EDT Narrative [facility] ([facility]) - 10/31/2024 12:06 PM EDT Waived Testing in the ED is performed under the ED CLIA certificate #[id number]. us Ky Ritter MD LAB BLOOD ORDERABLES Final Re sult [facility] ([facility]) [address] [place] [address] * LIMITED ECHO (TTE) W/ COLOR FLOW AND IMAGING AGENT (10/31/2024 11:40 AM EDT) Anatomical Region Laterality Modality Other 10/31/2024 11:1 6 AM EDT Narrative 10/31/2024 12:44 PM EDT 1 1 [facility] Heart Station [address] [place] [address] [phone] (fax) Echocardiogram-[facility] Name: JUAN KONG Study Date: 10/31/2024 11:16 AM B/P: 106 mmHg/67 mmHg HR: 70 bpm Date of : 1990 Location: [facility] Height: 66 in. Age: 34 year(s) Patient Room: 3187 Weight: 181 lb. Gender: Female Patient Status: InPt BSA: 1.92 m2 Indication: Chest Pain, gartroparesis, limited echo to assess CP Examination: Limited Echo, Color flow imaging, Lumason Contrast Image Quality: Fair Patient Consent: Procedure explained to patient Exam Details Contrast: I.V. dose of Lumason Conclusions Left Ventricle: Global left ventricular systolic function is at lower limits of normal. The calculated Biplane EF is 53 %. EF range is estimated at 50 % -55 %. Left ventricular wall thickness is normal. Regional wall motion abnormalities (see diagram). Right Ventricle: The right ventricle is normal in size. Normal right ventricular systolic function. Unable to assess right sided pressures due to lack of measurable tricuspid regurgitation. Left Atrium: The left atrium is normal in size. Pericardium: There is a minimal pericardial effusion. Overall Conclusions: Due to suboptimal imaging Lumason contrast was administered for opacification and better delineation of endocardial borders. Measurements Left Ventricle Label Value Normal Value LVDd, 2D 4.71 cm (3.9cm - 5.3cm) LVDs, 2D 2.96 cm (2.1cm - 4cm) IVSd, 2D 0.7 cm (0.6cm - 1.1cm) LVPWd, 2D 0.83 cm (0.6cm - 0.9cm) LVEF, BP 53 % (55% - 65%) LV Mass, 2D ASE 115.82 g LV Mass Index, 2D ASE 60.3 g/m?? (44g/m?? - 88.4g/m??) RWT, MM 0.35 (0 - 0.42) LVSVI, 2D 35.9 ml/m2 Aorta Label Value Normal Value AoRoot, 2D 2.5 cm (1.4cm - 3.8cm) Valvular Assessment LVOT 0.7 - 1.1 m/sec Aortic Valve 1.0 - 1.7 m/sec Mitral Valve 0.6 - 1.3 m/sec Tricuspid Valve 0.3 - 0.7 m/sec Pulmonic Valve 0.6 - 0.9 m/sec Regurgitation No No No No Findings Left Ventricle: Global left ventricular systolic function is at lower limits of normal. The calculated Biplane EF is 53 %. EF range is estimated at 50 % -55 %. Left ventricular wall thickness is normal. Regional wall motion abnormalities (see diagram). The basal inferolateral, mid anterior, mid anteroseptal, mid inferoseptal, mid inferolateral and apical lateral left ventricular wall segments are hypokinetic. All remaining scored left ventricular wall segments are with no wall motion abnormalities. Right Ventricle: The right ventricle is normal in size. Normal right ventricular systolic function. Unable to assess right sided pressures due to lack of measurable tricuspid regurgitation. Left Atrium: The left atrium is normal in size. Right Atrium: The right atrium is normal in size. Mitral Valve: The mitral valve is normal in mobility and thickness. No mitral regurgitation. Aortic Valve: The aortic valve is normal. No aortic valve regurgitation. Tricuspid Valve: Normal tricuspid valve. No tricuspid regurgitation. Pulmonic Valve: Normal pulmonary valve. No pulmonary regurgitation. Aorta: The aortic root exhibits normal size. Great Vessels: IVC: The IVC is not visualized. Pericardium: There is a minimal pericardial effusion. Procedure Staff Reading Group: [facility] Finisher [employer]: DAVID Kearney, RDCS Ordering Physician: KY RITTER Wall Motion Scores -1 - hyperkinesia, 0 - not evaluated, 1 - normal, 2 - hypokinesia, 3 - akinesia, 4 - dyskinesia Procedure Note Mitul Moya MD - 10/31/2024 1 1 [facility] Heart Station [address] [facility] [place] [address] [phone] (fax) Echocardiogram-[facility] Name: JUAN KONG Study Date: 10/31/2024 11:16 AM B/P: 106 mmHg/67 mmHg HR: 70 bpm Date of : 1990 Location: [facility] Height: 66 in. Age: 34 year(s) Patient Room: 3187 Weight: 181 lb. Gender: Female Patient Status: InPt BSA: 1.92 m2 Indication: Chest Pain, gartroparesis, limited echo to assess CP Examination: Limited Echo, Color flow imaging, Lumason Contrast Image Quality: Fair Patient Consent: Procedure explained to patient Exam Details Contrast: I.V. dose of Lumason Conclusions Left Ventricle: Global left ventricular systolic function is at lower limits of normal. The calculated Biplane EF is 53 %. EF range is estimated at 50 % -55 %. Left ventricular wall thickness is normal. Regional wall motion abnormalities (see diagram). Right Ventricle: The right ventricle is normal in size. Normal right ventricular systolic function. Unable to assess right sided pressures due to lack of measurable tricuspid regurgitation. Left Atrium: The left atrium is normal in size. Pericardium: There is a minimal pericardial effusion. Overall Conclusions: Due to suboptimal imaging Lumason contrast was administered for opacification and better delineation of endocardial borders. Measurements Left Ventricle Label Value Normal Value LVDd, 2D 4.71 cm (3.9cm - 5.3cm) LVDs, 2D 2.96 cm (2.1cm - 4cm) IVSd, 2D 0.7 cm (0.6cm - 1.1cm) LVPWd, 2D 0.83 cm (0.6cm - 0.9cm) LVEF, BP 53 % (55% - 65%) LV Mass, 2D ASE 115.82 g LV Mass Index, 2D ASE 60.3 g/m?? (44g/m?? - 88.4g/m??) RWT, MM 0.35 (0 - 0.42) LVSVI, 2D 35.9 ml/m2 Aorta Label Value Normal Value AoRoot, 2D 2.5 cm (1.4cm - 3.8cm) Valvular Assessment LVOT 0.7 - 1.1 m/sec Aortic Valve 1.0 - 1.7 m/sec Mitral Valve 0.6 - 1.3 m/sec Tricuspid Valve 0.3 - 0.7 m/sec Pulmonic Valve 0.6 - 0.9 m/sec Regurgitation No No No No Findings Left Ventricle: Global left ventricular systolic function is at lower limits of normal. The calculated Biplane EF is 53 %. EF range is estimated at 50 % -55 %. Left ventricular wall thickness is normal. Regional wall motion abnormalities (see diagram). The basal inferolateral, mid anterior, mid anteroseptal, mid inferoseptal, mid inferolateral and apical lateral left ventricular wall segments are hypokinetic. All remaining scored left ventricular wall segments are with no wall motion abnormalities. Right Ventricle: The right ventricle is normal in size. Normal right ventricular systolic function. Unable to assess right sided pressures due to lack of measurable tricuspid regurgitation. Left Atrium: The left atrium is normal in size. Right Atrium: The right atrium is normal in size. Mitral Valve: The mitral valve is normal in mobility and thickness. No mitral regurgitation. Aortic Valve: The aortic valve is normal. No aortic valve regurgitation. Tricuspid Valve: Normal tricuspid valve. No tricuspid regurgitation. Pulmonic Valve: Normal pulmonary valve. No pulmonary regurgitation. Aorta: The aortic root exhibits normal size. Great Vessels: IVC: The IVC is not visualized. Pericardium: There is a minimal pericardial effusion. Procedure Staff Reading Group: [facility] Fin[facility] [employer]aster[employer]: DAVID Kearney, RDCS Ordering Physician: KY RITTER Wall Motion Scores -1 - hyperkinesia, 0 - not evaluated, 1 - normal, 2 - hypokinesia, 3 - akinesia, 4 - dyskinesia Ky Ritter MD CV ECHO PROCEDURES Final Resu lt * ECG 12 lead (10/31/2024 8:47 AM EDT) Ventricular Rate 69 BPM GE MUSE Atrial Rate 69 BPM GE MUSE MA Interval 146 ms GE MUSE QRS DURATION 86 ms GE MUSE QT Interval 460 ms GE MUSE QTC CALCULATION(BAZE TT) 492 ms GE MUSE P [place] 56 degrees GE MUSE R-[place] 55 degrees GE MUSE T Wave [place] 71 degrees GE MUSE 10/31/2024 8:43 AM EDT 10/31/2024 10:36 PM EDT Impressions GE MUSE - 10/31/2024 10:36 PM EDT Normal sinus rhythm Mild sST elevation with T changes in V1-V4 consider acute anterior injury Abnormal ECG When compared with ECG of 31-OCT-2024 08:15, No significant change was found Confirmed by Griffin Diaz ([id number]) on 10/31/2024 10:36:38 PM Narrative Procedure Note Jonelle Harrison MD - 10/31/2024 IMPRESSION: Normal sinus rhythm Mild sST elevation with T changes in V1-V4 consider acute anteriorinjury Abnormal ECG When compared with ECG of 31-OCT-2024 08:15, No significant change was found Confirmed by Griffin Diaz ([id number]) on 10/31/2024 10:36:38 PM Ky Ritter MD ECG ORDERABLES Final Result GE [facility]USE * ECG 12 lead (10/31/2024 8:25 AM EDT) Ventricular Rate 70 BPM GE MUSE Atrial Rate 70 BPM GE MUSE MA Interval 148 ms GE MUSE QRS DURATION 86 ms GE MUSE QT Interval 460 ms GE MUSE QTC CALCULATION(BAZE TT) 496 ms GE MUSE P [place] 61 degrees GE MUSE R-[place] 59 degrees GE MUSE T Wave [place] 77 degrees GE MUSE 10/31/2024 8:15 AM EDT 10/31/2024 10:34 PM EDT Impressions GE MUSE - 10/31/2024 10:34 PM EDT Normal sinus rhythm Mild ST elevation with T changes in V1 to Vr, consider acute anterior injury Prolonged QT Abnormal ECG Confirmed by Griffin Diaz ([id number]) on 10/31/2024 10:34:26 PM Narrative Procedure Note Jonelle Harrison MD - 10/31/2024 IMPRESSION: Normal sinus rhythm Mild ST elevation with T changes in V1 to Vr, consider acute anteriorinjury Prolonged QT Abnormal ECG Confirmed by Griffin Diaz ([id number]) on 10/31/2024 10:34:26 PM us Katie Altamirano MD ECG ORDERABLES Final Result GE [facility]USE * POCT glucose meter (10/31/2024 7:22 AM EDT) [facility] Glucose POC 87 70 - 105 mg/dL 10/31/2024 7:33 AM EDT [facility] ([facility]) Comment:[email or web address] Blood Capillary blood specimen / Unknown 10/31/2024 7:22 AM EDT 10/31/2024 7:33 AM EDT Narrative [facility] ([facility]) - 10/31/2024 7:33 AM EDT Waived Testing in the ED is performed under the ED CLIA certificate #[id number]. us Ky Ritter MD LAB BLOOD ORDERABLES Final Re sult [facility] ([facility]) [address] [place] [address] * Hemoglobin A1c (10/31/2024 6:27 AM EDT) Pathologist [facility] Hemoglobin A1C 4.5 4.0 - 6.0 % 10/31/2024 1:13 PM EDT [facility] ([facility]) Estimated Average Glucose 82 mg/dL 10/31/2024 1:13 PM EDT [facility] ([facility]) Blood Blood sample taken from central line / Unknown Existing Catheter / Unknown 10/31/2024 6:27 AM EDT 10/31/2024 7:01 AM EDT us Ky Ritter MD LAB BLOOD ORDERABLES Final Re sult [facility] ([facility]) [address] [place] [address] * (ABNORMAL) Lipid panel (10/31/2024 6:27 AM EDT) [facility] Triglycerides 84 <150 mg/dL 10/31/2024 9:31 AM EDT [facility] ([facility]) Comment: TRIGLYCERIDE REFERENCE RANGE: 20 YEARS AND OLDER CARDIOVASCULAR RISK LESS THAN 150 mg/dL LOW RISK 150 TO 199 mg/dL BORDERLINE RISK 200 mg/dL AND GREATER HIGH RISK Cholesterol 116(L) 120 - 200 mg/dL 10/31/2024 9:31 AM EDT [facility] ([facility]) LDL Calculated 56 0 - 160 mg/dL 10/31/2024 9:31 AM EDT [facility] ([facility]) HDL 43 23 - 92 mg/dL 10/31/2024 9:31 AM EDT [facility] ([facility]) Non HDL Cholesterol 73 10/31/2024 9:31 AM EDT [facility] ([facility]) Total VLDL-C 17 0 - 40 mg/dL 10/31/2024 9:31 AM EDT [facility] ([facility]) Cholesterol/HDL Ratio 2.7 mg/dL 10/31/2024 9:31 AM EDT [facility] ([facility]) Blood Blood sample taken from central line / Unknown Existing Catheter / Unknown 10/31/2024 6:27 AM EDT 10/31/2024 7:11 AM EDT Ky Ritter MD LAB BLOOD ORDERABLES Final Re sult [facility]) [address] [place] [address] * (ABNORMAL) Magnesium (10/31/2024 6:27 AM EDT) Magnesium 1.8(L) 1.9 - 2.7 mg/dL 10/31/2024 8:29 AM EDT [facility] ([facility]) Blood Blood sample taken from central line / Unknown Existing Catheter / Unknown 10/31/2024 6:27 AM EDT 10/31/2024 7:11 AM EDT Ky Ritter MD LAB BLOOD ORDERABLES Final Re sult Performing Organization Address City/[facility]/ZIP Co de Phone Number [facility]) [address] [place] [phone] * Anti-Xa (Heparin Level) (10/31/2024 6:27 AM EDT) [facility] Anti-Xa (Heparin) 0.53 0.3 - 0.7 IU/mL 10/31/2024 7:27 AM EDT [facility] ([facility]) Comment:Rivaroxaban and Apix aban will interfere with the anti Xa assay used to monitor UFH and LMWH. Blood Blood sample taken from central line / Unknown Existing Catheter / Unknown 10/31/2024 6:27 AM EDT 10/31/2024 6:41 AM EDT Sandeep Casey MD LAB BLOOD ORDERABLES Final Resul t [facility]) [address] [place] [id number] * (ABNORMAL) CBC (10/31/2024 6:27 AM EDT) Auto WBC 3.65(L) 4.00 - 10.60 10*3/uL 10/31/2024 7:19 AM EDT [facility] ([facility]) RBC 3.21(L) 3.80 - 5.00 10*6/uL 10/31/2024 7:19 AM EDT [facility] ([facility]) Hemoglobin 9.4(L) 12.0 - 15.0 g/dL 10/31/2024 7:19 AM EDT [facility] ([facility]) Hematocrit 29.2(L) 36.0 - 45.0 % 10/31/2024 7:19 AM EDT [facility] ([facility]) MCV 91.0 82.0 - 98.0 fL 10/31/2024 7:19 AM EDT [facility] ([facility]) MCH 29.3 27.0 - 33.0 pg 10/31/2024 7:19 AM EDT [facility] ([facility]) MCHC 32.2 32.0 - 35.0 g/dL 10/31/2024 7:19 AM EDT [facility] ([facility]) RDW 13.3 11.5 - 15.0 % 10/31/2024 7:19 AM EDT [facility] ([facility]) Platelets 235 150 - 400 10*3/uL 10/31/2024 7:19 AM EDT [facility] ([facility]) Blood Blood sample taken from central line / Unknown Existing Catheter / Unknown 10/31/2024 6:27 AM EDT 10/31/2024 7:01 AM EDT us Debbie Luna [facility] LAB BLOOD ORDERABLES Final Resu lt [facility] ([facility]) [address] [place] [address] * (ABNORMAL) Basic metabolic panel (10/31/2024 6:27 AM EDT) Sodium 140 136 - 145 mmol/L 10/31/2024 7:52 AM EDT [facility] ([facility]) Potassium 4.0 3.5 - 5.1 mmol/L 10/31/2024 7:52 AM EDT [facility] ([facility]) Chloride 110(H) 98 - 107 mmol/L 10/31/2024 7:52 AM EDT [facility] ([facility]) CO2 26 21 - 31 mmol/L 10/31/2024 7:52 AM EDT [facility] ([facility]) BUN 5(L) 7 - 25 mg/dL 10/31/2024 7:52 AM EDT [facility] ([facility]) Creatinine 0.60 0.60 - 1.20 mg/dL 10/31/2024 7:52 AM EDT [facility] ([facility]) Glucose 83 70 - 100 mg/dL 10/31/2024 7:52 AM T [facility] ([facility]) Calcium 7.7(L) 8.6 - 10.3 mg/dL 10/31/2024 7:52 AM EDT [facility] ([facility]) Anion Gap 8 7 - 20 mmol/L 10/31/2024 7:52 AM T [facility] ([facility]) eGFR 120.0 >60.0 mL/min/1. 73m*2 10/31/2024 7:52 AM T [facility] ([facility]) Comment:[facility] s estimated glomerular filtration rate (eGFR) will [...] any one group of individuals. BUN/Creatinine Ratio 8.3 10/16 7:52 AM T [facility] ([facility]) Blood Blood sample taken from central line / Unknown Existing Catheter / Unknown 10/31/2024 6:27 AM EDT 10/31/2024 7:11 AM EDT us Debbie Luna CNP LAB BLOOD ORDERABLES Final Resu lt [facility]) [address] [place] [address] * (ABNORMAL) High Sensitivity Troponin I (10/31/2024 6:27 AM EDT) [facility] High Sensitivity Troponin I 61(HH) <15 ng/L 10/31/2024 7:58 AM EDT [facility] ([facility]) Blood Blood sample taken from central line / Unknown Existing Catheter / Unknown 10/31/2024 6:27 AM EDT 10/31/2024 7:11 AM EDT us Debbie Luna CNP LAB BLOOD ORDERABLES Final Resu lt [facility]) [address] [place] [address] * Anti-Xa (Heparin Level) (10/31/2024 1:38 AM EDT) [facility] Anti-Xa (Heparin) 0.47 0.3 - 0.7 IU/mL 10/31/2024 2:03 AM EDT [facility] ([facility]) Comment:Rivaroxaban and Apix aban will interfere with the anti Xa assay used to monitor UFH and LMWH. Blood Venous blood specimen / Unknown Existing Catheter / Unknown 10/31/2024 1:38 AM EDT 10/31/2024 1:42 AM EDT us Sandeep Casey MD LAB BLOOD ORDERABLES Final Resul t Performing Organization Address City/[facility]/ZIP Co de Phone Number [facility]) [address] [place], [place] [phone] * (ABNORMAL) High Sensitivity Troponin I (10/31/2024 1:38 AM EDT) [facility] High Sensitivity Troponin I 129(HH) <15 ng/L 10/31/2024 2:33 AM EDT [facility] ([facility]) Blood Blood sample taken from central line / Unknown Existing Catheter / Unknown 10/31/2024 1:38 AM EDT 10/31/2024 1:44 AM EDT us Debbie Luna BEEF SPECIALIST LAB BLOOD ORDERABLES Final Resu lt [facility] ([facility]) [address] [place] [address] * POCT glucose meter (10/30/2024 9:12 PM EDT) Pathologist [facility] Glucose POC 97 70 - 105 mg/dL 10/30/2024 9:23 PM EDT [facility] ([facility]) Comment:[email or web address] Blood Capillary blood specimen / Unknown 10/30/2024 9:12 PM EDT 10/30/2024 9:23 PM EDT Narrative [facility] ([facility]) - 10/30/2024 9:23 PM EDT Waived Testing in the ED is performed under the ED CLIA certificate #[id number]. us Sandeep Casey MD LAB BLOOD ORDERABLES Final Resul t Performing Organization Address City/[facility]/ZIP Co de Phone Number [facility] ([facility]) [address] [place] [address] * ECG 12 lead (10/30/2024 8:00 PM EDT) Ventricular Rate 83 BPM GE MUSE Atrial Rate 83 BPM GE MUSE MA Interval 144 ms GE MUSE QRS DURATION 88 ms GE MUSE QT Interval 410 ms GE MUSE QTC CALCULATION(BAZE TT) 482 ms GE MUSE P [place] 62 degrees GE MUSE R-[place] 19 degrees GE MUSE T Wave [place] 56 degrees GE MUSE 10/30/2024 7:48 PM EDT 10/31/2024 9:14 PM EDT Impressions GE MUSE - 10/31/2024 9:14 PM EDT Sinus rhythm with sinus arrhythmia with occasional Premature ventricular complexes otherwise normal EKG No previous ECGs available Confirmed by Griffin Diaz ([id number]) on 10/31/2024 9:14:03 PM Narrative Procedure Note Jonelle Harrison MD - 10/31/2024 IMPRESSION: Sinus rhythm with sinus arrhythmia with occasional Premature ventricular complexes otherwise normal EKG No previous ECGs available Confirmed by Griffin Diaz ([id number]) on 10/31/2024 9:14:03 PM Debbie Nadanu BEEF SPECIALIST ECG ORDERABLES Final Result Performing Organization Address City/[facility]/ZIP Co de Phone Number [facility] * (ABNORMAL) Anti-Xa (Heparin Level) (10/30/2024 7:11 PM EDT) Anti-Xa (Heparin) <0.10(LL) 0.3 - 0.7 IU/mL 10/30/2024 8:27 PM EDT [facility] ([facility]) Comment:Rivaroxaban and Apix aban will interfere with the anti Xa assay used to monitor UFH and LMWH. Blood Venous blood specimen / Unknown Existing Catheter / Unknown 10/30/2024 7:11 PM EDT 10/30/2024 7:18 PM EDT Sandeep Casey MD LAB BLOOD ORDERABLES Final Resul t Performing Organization Address [facility] de Phone Number [facility] ([facility]) [address] [place] [address] * (ABNORMAL) aPTT - baseline (10/30/2024 7:11 PM EDT) aPTT 42.0(H) 25.0 - 35.0 Seconds 10/30/2024 7:48 PM EDT [facility] ([facility]) Comment:Clinical significanc e of the APTT is questionable in the presence of heparin. Blood Venous blood specimen / Unknown Existing Catheter / Unknown 10/30/2024 7:11 PM EDT 10/30/2024 7:18 PM EDT [facility] LAB BLOOD ORDERABLES Final Resu lt Performing Organization Address City/[facility]/ZIP Co de Phone Number [facility] ([facility]) [address] [place], [place] [phone] * TSH3 Reflex to FT4 (10/30/2024 7:11 PM EDT) [facility] TSH 3.46 0.34 - 5.60 mIU/L 10/30/2024 8:01 PM EDT [facility] ([facility]) Blood Venous blood specimen / Unknown Existing Catheter / Unknown 10/30/2024 7:11 PM EDT 10/30/2024 7:18 PM EDT us Debbie Cheryl [facility] LAB BLOOD ORDERABLES Final Resu lt [facility] ([facility]) [address] [place], [place] [phone] * (ABNORMAL) CBC auto differential (10/30/2024 7:11 PM EDT) [facility] Auto WBC 4.32 4.00 - 10.60 10*3/uL 10/30/2024 7:51 PM EDT [facility] ([facility]) RBC 3.30(L) 3.80 - 5.00 10*6/uL 10/30/2024 7:51 PM EDT [facility] ([facility]) Hemoglobin 9.7(L) 12.0 - 15.0 g/dL 10/30/2024 7:51 PM EDT [facility] ([facility]) Hematocrit 29.6(L) 36.0 - 45.0 % 10/30/2024 7:51 PM EDT [facility] ([facility]) MCV 89.7 82.0 - 98.0 fL 10/30/2024 7:51 PM EDT [facility] ([facility]) MCH 29.4 27.0 - 33.0 pg 10/30/2024 7:51 PM EDT [facility] ([facility]) MCHC 32.8 32.0 - 35.0 g/dL 10/30/2024 7:51 PM EDT [facility] ([facility]) RDW 13.4 11.5 - 15.0 % 10/30/2024 7:51 PM EDT [facility] ([facility]) Neutrophils % 44.2 40.0 - 72.0 % 10/30/2024 7:51 PM EDT [facility] ([facility]) Lymphocytes % 44.9 20.0 - 45.0 % 10/30/2024 7:51 PM EDT [facility] ([facility]) Monocytes % 7.9 5.0 - 12.0 % 10/30/2024 7:51 PM EDT [facility] ([facility]) Eosinophils % 2.1 0.0 - 6.0 % 10/30/2024 7:51 PM EDT [facility] ([facility]) Basophils % 0.9 0.0 - 1.0 % 10/30/2024 7:51 PM EDT [facility] ([facility]) Neutrophils Absolute 1.91 1.60 - 7.60 10*3/uL 10/30/2024 7:51 PM EDT [facility] ([facility]) Lymphocytes Absolute 1.94 1.20 - 4.00 10*3/uL 10/30/2024 7:51 PM EDT [facility] ([facility]) Monocytes Absolute 0.34 0.10 - 1.00 10*3/uL 10/30/2024 7:51 PM EDT [facility] ([facility]) Eosinophils Absolute 0.09 0.00 - 0.50 10*3/uL 10/30/2024 7:51 PM EDT [facility] ([facility]) Basophils Absolute 0.04 0.00 - 0.20 10*3/uL 10/30/2024 7:51 PM EDT [facility] ([facility]) Platelets 272 150 - 400 10*3/uL 10/30/2024 7:51 PM EDT [facility] ([facility]) nRBC % 0.0 0 % 10/30/2024 7:51 PM EDT [facility] ([facility]) Immature Granulocytes % 0.0 0.0 - 1.0 % 10/30/2024 7:51 PM EDT [facility] ([facility]) Immature Granulocytes Absolute 0.00 0.00 - 0.20 10*3/uL 10/30/2024 7:51 PM EDT [facility] ([facility]) Blood Venous blood specimen / Unknown Existing Catheter / Unknown 10/30/2024 7:11 PM EDT 10/30/2024 7:18 PM EDT [facility] BLOOD ORDERABLES Final Resu lt Performing Organization Address City/[facility]/ZIP Co de Phone Number [facility]) [address] [place] [address] * B-type natriuretic peptide (10/30/2024 7:11 PM EDT) BNP 77 0 - 100 pg/mL 10/30/2024 7:49 PM EDT [facility] ([facility]) Blood Venous blood specimen / Unknown Existing Catheter / Unknown 10/30/2024 7:11 PM EDT 10/30/2024 7:18 PM EDT [facility] LAB BLOOD ORDERABLES Final Resu lt Performing Organization Address City/[facility] Co de Phone Number [facility] ([facility]) [address] [place] [address] * (ABNORMAL) Protime-INR (10/30/2024 7:11 PM EDT) Protime 14.8 12.3 - 14.8 Seconds 10/30/2024 7:47 PM EDT [facility]) INR 1.15(H) 0.90 - 1.10 10/30/2024 7:47 PM EDT [facility] ([facility]) Comment: [facility] RECOMMENDED INR FOR [facility]ER[facility] CONDITION INR PROPHYLAXIS OF VENOUS THROMBOSIS 2-3 (HIGH-RISK SURGERY) TREATMENT OF VENOUS THROMBOSIS 2-3 TREATMENT OF PULMONARY EMBOLISM 2-3 PREVENTION OF SYSTEMIC EMBOLISM: 2-3 ACUTE MYOCARDIAL INFARCTION TISSUE HEART VALVES VALVULAR HEART DISEASE ATRIAL FIBRILLATION RECURRENT SYSTEMIC EMBOLISM MECHANICAL HEART VALVE 2.5-3.5 FROM: ORAL ANTICOAGULANTS. MECHANISM OF ACTION, CLINICAL EFFECTIVENESS, AND OPTIMAL THERAPEUTIC RANGE. CHEST 1995;[id number]. Blood Venous blood specimen / Unknown Existing Catheter / Unknown 10/30/2024 7:11 PM EDT 10/30/2024 7:18 PM EDT [facility] LAB BLOOD ORDERABLES Final Resu lt Performing Organization Address City/[facility]/ZIP Co de Phone Number [facility] ([facility]) [address] [place], [place] [phone] * Phosphorus (10/30/2024 7:11 PM EDT) Pathologist [facility] Phosphorus 4.4 2.5 - 5.0 mg/dL 10/30/2024 7:46 PM EDT [facility]) Blood Venous blood specimen / Unknown Existing Catheter / Unknown 10/30/2024 7:11 PM EDT 10/30/2024 7:18 PM EDT [facility] BLOOD ORDERABLES Final Resu lt [facility]) [address] [place], [place] [phone] * (ABNORMAL) HIGH SENSITIVITY TROPONIN I (10/30/2024 7:11 PM EDT) High Sensitivity Troponin I 337(HH) <15 ng/L 10/30/2024 7:53 PM EDT [facility]) Blood Venous blood specimen / Unknown Existing Catheter / Unknown 10/30/2024 7:11 PM EDT 10/30/2024 7:18 PM EDT [facility] BLOOD ORDERABLES Final Resu lt [facility] ([facility]) [address] [place] [address] * (ABNORMAL) Magnesium (10/30/2024 7:11 PM EDT) Magnesium 1.7(L) 1.9 - 2.7 mg/dL 10/30/2024 7:46 PM EDT [facility]) Blood Venous blood specimen / Unknown Existing Catheter / Unknown 10/30/2024 7:11 PM EDT 10/30/2024 7:18 PM EDT [facility] BLOOD ORDERABLES Final Resu lt Performing Organization Address City/[facility]/ZIP Co de Phone Number [facility] ([facility]) [address] [place] [address] * (ABNORMAL) Comprehensive metabolic panel (10/30/2024 7:11 PM EDT) Sodium 139 136 - 145 mmol/L 10/30/2024 7:46 PM EDT [facility] ([facility]) Potassium 3.7 3.5 - 5.1 mmol/L 10/30/2024 7:46 PM EDT [facility] ([facility]) Chloride 110(H) 98 - 107 mmol/L 10/30/2024 7:46 PM EDT [facility] ([facility]) CO2 23 21 - 31 mmol/L 10/30/2024 7:46 PM EDT [facility] ([facility]) Anion Gap 10 7 - 20 mmol/L 10/30/2024 7:46 PM EDT [facility] ([facility]) BUN 5(L) 7 - 25 mg/dL 10/30/2024 7:46 PM EDT [facility] ([facility]) Creatinine 0.64 0.60 - 1.20 mg/dL 10/30/2024 7:46 PM EDT [facility] ([facility]) BUN/Creatinine Ratio 7.8 10/16 7:46 PM T [facility] ([facility]) Glucose 101(H) 70 - 100 mg/dL 10/30/2024 7:46 PM T [facility] ([facility]) Calcium 7.8(L) 8.6 - 10.3 mg/dL 10/30/2024 7:46 PM EDT [facility] ([facility]) AST 19 13 - 39 U/L 10/30/2024 7:46 PM T [facility]) ALT (SGPT) 7 7 - 52 U/L 10/30/2024 7:46 PM T [facility] ([facility]) Alkaline Phosphatase 45 34 - 104 U/L 10/30/2024 7:46 PM T [facility]) Total Protein 5.0(L) 6.0 - 8.3 g/dL 10/30/2024 7:46 PM T [facility] ([facility]) Albumin 3.2(L) 3.5 - 5.7 g/dL 10/30/2024 7:46 PM T [facility]) Total Bilirubin 0.2(L) 0.3 - 1.0 mg/dL 10/30/2024 7:46 PM T [facility] ([facility]) eGFR 118.1 >60.0 mL/min/1. 73m*2 10/30/2024 7:46 PM T [facility] ([facility]) Comment:[facility] s estimated glomerular filtration rate (eGFR) will [...] disproportionately affect any one group of individuals. Blood Venous blood specimen / Unknown Existing Catheter / Unknown 10/30/2024 7:11 PM EDT 10/30/2024 7:18 PM EDT us Debbie Luna BEEF SPECIALIST LAB BLOOD ORDERABLES Final Resu lt [facility]) [address] [place] [address] documented in this encounter Visit Diagnoses Diagnosis NSTEMI (non-ST elevated myocardial infarction) (CMS/HCC)- Primary Acute myocardial infarction, subendocardial infarction, episode of care unspecified Chest pain Unspecified chest pain NSTEMI (non-ST elevated myocardial infarction) (CMS/HCC) Acute myocardial infarction, subendocardial infarction, episode of care unspecified Spontaneous dissection of coronary artery Gastroparesis Hematoma Contusion of unspecified site Gastroesophageal reflux disease without esophagitis Esophageal reflux Acquired hypothyroidism Unspecified hypothyroidism Gastroparesis GERD (gastroesophageal reflux disease) Esophageal reflux Chest pain Unspecified chest pain Type 2 diabetes mellitus without complication, without long-term current use of insulin (CMS/HCC) Primary hypertension Unspecified essential hypertension Other hyperlipidemia Asthma Unspecified asthma IBS (irritable bowel syndrome) Irritable bowel syndrome 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 Protein calorie malnutrition Unspecified protein-calorie malnutrition Prolonged Q-T interval on ECG Nonspecific abnormal electrocardiogram (ECG) (EKG) Spontaneous dissection of coronary artery Hematoma Contusion of unspecified site NSTEMI (non-ST elevated myocardial infarction) (CMS/HCC) Acute myocardial infarction, subendocardial infarction, episode of care unspecified NSTEMI (non-ST elevated myocardial infarction) (CMS/HCC) Acute myocardial infarction, subendocardial infarction, episode of care unspecified Angina pectoris, unstable (CMS/HCC) Intermediate coronary syndrome Spontaneous dissection of coronary artery documented in this encounter Admitting Diagnoses Diagnosis Chest pain Unspecified chest pain NSTEMI (non-ST elevated myocardial infarction) (CMS/HCC) Acute myocardial infarction, subendocardial infarction, episode of care unspecified Spontaneous dissection of coronary artery Hematoma Contusion of unspecified site documented in this encounter Administered Medications Inactive Administered Medications - up to 3 most recent administrations Medication Order MAR Action Action Date Dose Rate Site acetaminophen (Tylenol) tablet 650 mg 650 mg, oral, Every 6 hours PRN, mild pain (1-3 pain score), (1-3), Starting on Wed10/30/24 at 1913, For 99 days Given 11/03/2024 8:40 AM EDT 650 mg acetaminophen (Tylenol) tablet 650 mg 650 mg, oral, Every 8 hours PRN, mild pain (1-3 pain score), (1-3), Starting on Wed11/03/24 at 0851 Given 11/05/2024 4:33 PM EDT 650 mg Adult Cyclic 3-in-1 TPN 2,300 mL, intravenous, at 79.8-158.5 mL/hr, Administer over 16 Hours, Cyclic TPN, Starting on Wed10/31/24 at 2200, For 24 hours, 158.5 ml/hr x 13 hr, 79.8 ml/hr x last 3 hr Use a 1.2 micron filter.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 Rate/Dose Change 11/01/2024 8:00 AM EDT 79.83 mL/hr Rate/Dose Verify 11/01/2024 4:06 AM EDT 158.5 m L/hr New Bag 10/31/2024 10:13 PM EDT 158.5 mL/hr Adult Cyclic 3-in-1 TPN 2,300 mL, intravenous, at 79.8-158.5 mL/hr, Administer over 16 Hours, Cyclic TPN, Starting on Wed11/01/24 at 2200, For 24 hours, 158.5 ml/hr x 13 hr, 79.8 ml/hr x last 3 hr Use a 1.2 micron filter.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 Rate/Dose Verify 11/02/2024 9:49 AM EDT 79.8 mL/hr Rate/Dose Change 11/02/2024 8:02 AM EDT 79.8 mL /hr Rate/Dose Verify 11/02/2024 3:43 AM EDT 159 mL/ hr Adult Cyclic 3-in-1 TPN 2,300 mL, intravenous, Administer over 16 Hours, Cyclic TPN, Starting on Wed11/03/24 at 2200, For 24 hours, NOTE: 158.5 ml/hr x 13 hr ---->79.8 ml/hr last 3 hrs Use a 1.2 micron filter.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 Rate/Dose Verify 11/04/2024 12:00 PM EDT 79.8 mL/hr Rate/Dose Change 11/04/2024 11:12 AM EDT 79.8 m L/hr Rate/Dose Verify 11/04/2024 11:00 AM EDT 159 mL /hr Adult Cyclic 3-in-1 TPN 2,300 mL, intravenous, Administer over 16 Hours, Cyclic TPN, Starting on 11/04/24 at 2200, For 24 hours, NOTE: 158.5 ml/hr x 13 hr ---->79.8 ml/hr last 3 hrs Use a 1.2 micron filter.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 Rate/Dose Verify 11/05/2024 1:00 PM EDT 79.8 mL/hr Rate/Dose Verify 11/05/2024 12:00 PM EDT 79.8 m L/hr Rate/Dose Change 11/05/2024 11:30 AM EDT 79.8 m L/hr Adult Cyclic 3-in-1 TPN 2,300 mL, intravenous, Administer over 16 Hours, Cyclic TPN, Starting on 11/06/24 at 2200, For 24 hours, NOTE: 158.5 ml/hr x 13 hr ---->79.8 ml/hr last 3 hrs Use a 1.2 micron filter.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 Given 11/07/2024 9:00 AM EDT 81 mg Given 11/06/2024 9:33 AM EDT 81 mg Given 11/05/2024 10:21 AM EDT 81 mg atorvastatin (Lipitor) tablet 80 mg 80 mg, oral, Nightly, First dose on Wed10/31/24 at 2200, For 99 days Given 11/01/2024 9:51 PM EDT 80 mg Given 10/31/2024 10:07 PM EDT 80 mg atorvastatin (Lipitor) tablet 80 mg 80 mg, oral, Nightly, First dose (after last modification) on Wed11/03/24 at 2200, For 96 doses Given 11/06/2024 9:06 PM EDT 80 mg Given 11/05/2024 11:36 PM EDT 80 mg Given 11/04/2024 10:44 PM EDT 80 mg calcium gluc in NaCl, iso-osm 1 gram/100 mL solution 1 g 1 g, intravenous, at 100 mL/hr, Administer over 1 Hours, Every 1 hour, First dose (after last modification) on Wed11/04/24 at 0745, For 2 doses New Bag 11/04/2024 10:37 AM EDT 1 g 100 mL/hr New Bag 11/04/2024 9:07 AM EDT 1 g 100 mL/hr clopidogrel (Plavix) tablet 75 mg 75 mg, oral, Daily, First dose on Wed11/01/24 at 1500, For 99 days Given 11/02/2024 8:56 AM EDT 75 mg Given 11/01/2024 5:55 PM EDT 75 mg clopidogrel (Plavix) tablet 75 mg 75 mg, oral, Daily, First dose (after last reorder) on Wed11/03/24 at 1300, For 99 days Given 11/07/2024 9:00 AM EDT 75 mg Given 11/06/2024 9:33 AM EDT 75 mg Given 11/05/2024 10:21 AM EDT 75 mg dextrose 50 % in water (D50W) syringe 25 g 25 g, intravenous, Every 15 min PRN, capillary blood glucose < 70 mg/dL and patient unable to take oral and has IV access, Starting on Wed10/30/24 at 2050, For 99 days, - Recheck blood glucose 5 minutes after dextrose administration. - Repeat treatment as ordered until blood glucose is greater than or equal to 80 mg/dL. - Provide a snack/meal within 1 hour after correction of hypoglycemia if not NPO. - If patient NPO or on enteral tube feeds, contact physician for potential additional interventions(s) (i.e. 5% or 10% dextrose IV fluids or tube feeding bolus) Given 10/31/2024 12:28 PM EDT 2 5 g diphenhydrAMINE (BENADryl) injection 12.5 mg 12.5 mg, intravenous, Every 6 hours PRN, nausea/vomiting, Starting on Wed10/31/24 at 1107, For 99 days Given 11/06/2024 5:04 PM EDT 12.5 mg Given 11/06/2024 10:58 AM EDT 12.5 mg Given 11/06/2024 5:50 AM EDT 12.5 mg diphenhydrAMINE (BENADryl) injection 12.5 mg 12.5 mg, intravenous, Once, On Heena 11/02/24 at 1045, For 1 dose Given 11/02/2024 11:45 AM EDT 12.5 mg diphenhydrAMINE (BENADryl) injection 50 mg 50 mg, intravenous, Every 6 hours PRN, nausea/vomiting, Starting on Wed11/06/24 at 2135, For 93 days Given 11/07/2024 12:01 PM EDT 50 mg Given 11/07/2024 6:13 AM EDT 50 mg Given 11/06/2024 11:13 PM EDT 50 mg enoxaparin (Lovenox) syringe 30 mg 30 mg, subcutaneous, 2 times daily, First dose on Wed11/03/24 at 1000, For 99 days Given 11/07/2024 8:55 AM EDT 30 mg Left Upper Arm (Back) Given 11/06/2024 9:06 PM EDT 30 mg Ri ght Lower Abdomen Given 11/06/2024 9:32 AM EDT 30 mg Le ft Lower Abdomen ergocalciferol (Vitamin D-2) capsule 50,000 Units 50,000 Units, oral, Weekly, First dose on Wed11/05/24 at 0715, For 1 day Given 11/05/2024 8:32 AM EDT 50,000 Uni ts escitalopram (Lexapro) tablet 20 mg 20 mg, oral, Daily, First dose on Wed10/31/24 at 1000, For 99 days Given 11/02/2024 8:56 AM EDT 20 mg Given 11/01/2024 9:59 AM EDT 20 mg Given 10/31/2024 9:43 AM EDT 20 mg escitalopram (Lexapro) tablet 20 mg 20 mg, oral, Daily, First dose (after last modification) on Wed11/03/24 at 1000, For 96 doses Given 11/07/2024 9:00 AM EDT 20 mg Given 11/06/2024 9:33 AM EDT 20 mg Given 11/05/2024 10:21 AM EDT 20 mg fentaNYL (Duragesic) 12 mcg/hr 1 patch 1 patch, transdermal, Administer over 72 Hours, Every 72 hours, First dose on Wed11/05/24 at 1715, For 99 days, Fentanyl patch order is a(n) initiation Do not cut patch. Rotate site with [...] per policy. Wash hands immediately after handling patch., Clinical Rationale: Other (Specify), Explanatory comment: home med for chronic pain Medication Applied 11/05/2024 5:39 PM EDT 1 patch Other fentaNYL (Duragesic) 25 mcg/hr 1 patch 1 patch, transdermal, Administer over 72 Hours, Every 72 hours, First dose on Wed10/31/24 at 1115, For 99 days, Do not cut patch. [...] hands immediately after handling patch. Medication Applied 10/31/2024 12:36 PM EDT 1 patch Right Arm fentaNYL (Duragesic) 25 mcg/hr 1 patch 1 patch, transdermal, Administer over 72 Hours, Every 72 hours, First dose (after last modification) on Wed11/03/24 at 1230, For 32 doses, Do not cut patch. Rotate site with [...] hands immediately after handling patch. Medication Applied 11/03/2024 11:28 AM EDT 1 patch Left Arm fentaNYL (Duragesic) 25 mcg/hr 1 patch 1 patch, transdermal, Administer over 72 Hours, Every 72 hours, First dose on Wed11/05/24 at 1715, For 99 days, Fentanyl patch order is a(n) initiation Do not cut patch. Rotate site with [...] per policy. Wash hands immediately after handling patch., Clinical Rationale: Other (Specify), Explanatory comment: home med for chronic pain Medication Applied 11/05/2024 5:39 PM EDT 1 patch Other fentaNYL (Sublimaze) injection 12.5 mcg 12.5 mcg, intravenous, Once, On Heena 11/02/24 at 1815, For 1 dose, Intraprocedure Given 11/02/2024 6:15 PM EDT 12.5 mcg fentaNYL (Sublimaze) injection 12.5 mcg 12.5 mcg, intravenous, Once, On Heena 11/02/24 at 1915, For 1 dose, Intraprocedure Given 11/02/2024 7:15 PM EDT 12.5 mcg fentaNYL (Sublimaze) injection 25 mcg 25 mcg, intravenous, Once, On Heena 11/02/24 at 1915, For 1 dose, Intraprocedure Given 11/02/2024 7:15 PM EDT 25 mcg fentaNYL (Sublimaze) injection 25 mcg 25 mcg, intravenous, Once, On Heena 11/02/24 at 1930, For 1 dose, Intraprocedure Given 11/02/2024 7:30 PM EDT 25 mcg fentaNYL (Sublimaze) injection 25 mcg 25 mcg, intravenous, Every 2 hour PRN, severe pain (8-10 pain score), chest pain, Starting on 11/04/24 at 1528, For 99 days Given 11/06/2024 7:13 PM EDT 25 mcg Given 11/06/2024 5:04 PM EDT 25 mcg Given 11/06/2024 2:44 PM EDT 25 mcg fentaNYL (Sublimaze) injection 50 mcg 50 mcg, intravenous, Every 2 hour PRN, severe pain (8-10 pain score), use only if oral route not available or oral medications ineffective., Starting on 11/06/24 at 2200, For 99 days Given 11/06/2024 10:05 PM EDT 50 mcg fentaNYL (Sublimaze) injection 50 mcg 50 mcg, intravenous, Every 4 hours PRN, severe pain (8-10 pain score), use only if oral route not available or oral medications ineffective., Starting on 11/06/24 at 2229 Given 11/07/2024 6:12 AM EDT 50 mcg Given 11/07/2024 2:59 AM EDT 50 mcg glucose chewable tablet 24 g 24 g, oral, Every 15 min PRN, capillary blood glucose < 70 mg/dL and patient alert and eating, Starting on 10/30/24 at 2050, For 99 days, - Recheck blood glucose 5 minutes after dextrose administration. - Repeat treatment as ordered until blood glucose is greater than or equal to 80 mg/dL. - Provide a snack/meal within 1 hour after correction of hypoglycemia if not NPO. - If patient NPO or on enteral tube feeds, contact physician for potential additional interventions(s) (i.e. 5% or 10% dextrose IV fluids or tube feeding bolus) heparin (porcine) injection 5,000 Units 5,000 Units, subcutaneous, Every 8 hours scheduled, First dose on 11/01/24 at 2200, For 99 days, Phase II/On Unit, Indications: deep vein thrombosis preventionIndications:deep vein thrombosis prevention Given 11/02/2024 5:56 AM EDT 5,000 Units Right Lower Abdomen Given 11/01/2024 9:52 PM EDT 5,000 Units L eft Lower Abdomen heparin infusion 100 units/mL in D5W 0-28 Units/kg/hr 82.1 kg (0-22.988 mL/hr, rounded to 0-23 mL/hr), intravenous, Continuous, Starting on Wed10/30/24 at 1900, For 99 days, Cardiac/Stroke protocol - Monitor antiXa level 6 hours after rate change, then every 6 hours until therapeutic twice. While therapeutic monitor every AM., Initial Heparin rate (units/kg/hr): 15, Anti-Xa < 0.20 Maintenance Dose Adjustment (units/kg/hr): 2, Anti-Xa < 0.20 Bolus Dose (units/kg): 0, Anti-Xa 0.2-0.29 Heparin Maintenance Dose Adjustment (units/kg/hr): 1, Anti-Xa 0.3-0.7 Maintenance Dose Adjustment (units/kg/hr): 0, Anti-Xa 0.71-0.8 Maintenance Dose Adjustment (units/kg/hr): -1, Anti-Xa 0.81-0.99 Maintenance Dose Adjustment (units/kg/hr): -2, Anti-Xa 1.00 or greater = Maintenance Dose Adjustment (units/kg/hr): -2, Anti-Xa 1.0 or greater = Bolus Dose (units/kg): 0, Anti-Xa 1.0 or greater = adjust current infusion: Hold infusion for 1 hour, then restart at 2 units/kg/hr below current dose., Indication: Cardiac/Stroke Rate/Dose Change 11/01/2024 10:00 AM EDT 16 Units/kg/hr 13.1 mL/hr Rate/Dose Verify 11/01/2024 4:06 AM EDT 15 Units/kg/hr 12. 3 mL/hr Restarted 10/31/2024 11:43 PM EDT 15 Units/kg/hr 12.3 mL/ hr HYDROcodone-acetaminophen (Marcellus) 5-325 mg per tablet 1 tablet 1 tablet, oral, Every 4 hours PRN, severe pain (8-10 pain score), Starting on Wed10/30/24 at 2000, For 99 days Given 11/02/2024 10:06 AM EDT 1 tablet Given 11/02/2024 5:56 AM EDT 1 tablet Given 11/01/2024 5:55 PM EDT 1 tablet HYDROcodone-acetaminophen (Marcellus) 5-325 mg per tablet 1 tablet 1 tablet, oral, Every 4 hours PRN, moderate pain (4-7 pain score), Starting on Wed11/02/24 at 1331, For 96 days Given 11/03/2024 10:11 AM EDT 1 table t HYDROcodone-acetaminophen (Marcellus) 5-325 mg per tablet 2 tablet 2 tablet, oral, Every 4 hours PRN, severe pain (8-10 pain score), Starting on Wed11/02/24 at 1331, For 96 days Given 11/07/2024 2:49 PM EDT 2 tablets Given 11/07/2024 9:09 AM EDT 2 tablets Given 11/06/2024 1:00 PM EDT 2 tablets hydrocortisone (Cortef) tablet 10 mg 10 mg, oral, Daily, First dose on Wed10/31/24 at 1000, For 99 days Given 11/07/2024 8:55 AM EDT 10 mg Given 11/06/2024 9:34 AM EDT 10 mg Given 11/05/2024 10:22 AM EDT 10 mg HYDROmorphone (Dilaudid) injection 0.2 mg 0.2 mg, intravenous, Every 3 hours PRN, use only if oral route not available or oral medications ineffective., moderate-severe pain (4-10 pain score), Starting on Wed11/03/24 at 1429, For 99 days Given 11/05/2024 6:38 AM EDT 0.2 mg Given 11/04/2024 7:58 PM EDT 0.2 mg Given 11/04/2024 2:26 PM EDT 0.2 mg HYDROmorphone (Dilaudid) injection 0.5 mg 0.5 mg, intravenous, Every 15 min PRN, severe pain (8-10 pain score), Second choice for severe pain (8-10), give this medication after 1st choice fentanyl, Starting on Wed11/02/24 at 2229, For 4 doses, Recovery (only) Given 11/02/2024 11:17 PM EDT 0.5 mg Given 11/02/2024 10:52 PM EDT 0.5 mg insulin lispro (HumaLOG) injection 0-4 Units 0-4 Units, subcutaneous, Nightly, First dose (after last modification) on Wed11/03/24 at 2200, For 95 doses, BG less than 110 instructions: Hold Insulin. If BG below 70, implement hypoglycemia orders., BG 110-150: 0, BG 151-200: 0, BG 201-250: 1, BG 251-300: 2, BG 301-350: 3, BG 351-400: 4, BG greater than 400 instructions: Call Physician insulin lispro (HumaLOG) injection 0-5 Units 0-5 Units, subcutaneous, 3 times daily with meals, First dose (after last modification) on Wed11/03/24 at 0800, For 288 doses, BG less than 110 instructions: Hold Insulin. If BG below 70, implement hypoglycemia orders., BG 110-150: 0, BG 151-200: 1, BG 201-250: 2, BG 251-300: 3, BG 301-350: 4, BG 351-400: 5, BG greater than 400 instructions: Call Physician iohexol (OMNIPaque) 350 mg iodine/mL injection 100 mL 100 mL, intravenous, Once in imaging, Starting on 11/04/24 at 1243, For 1 day Given 11/04/2024 12:43 PM E DT 100 mL levothyroxine (Synthroid, Levoxyl) tablet 75 mcg 75 mcg, oral, Daily before breakfast, First dose on Wed10/31/24 at 0600, For 99 days Given 11/02/2024 5:56 AM EDT 75 mcg Given 11/01/2024 5:41 AM EDT 75 mcg Given 10/31/2024 5:33 AM EDT 75 mcg levothyroxine (Synthroid, Levoxyl) tablet 75 mcg 75 mcg, oral, Daily before breakfast, First dose (after last modification) on Wed11/03/24 at 0600, For 96 doses Given 11/07/2024 6:08 AM EDT 75 mcg Given 11/06/2024 5:54 AM EDT 75 mcg Given 11/05/2024 6:30 AM EDT 75 mcg lidocaine (Lidoderm) 5 % patch 1 patch 1 patch, topical (top), Administer over 12 Hours, Every 24 hours, First dose on Wed11/06/24 at 1030, For 99 days, Apply to r thigh. Medication Applied 11/07/2024 9:09 AM EDT 1 patch Other Medication Applied 11/06/2024 10:58 AM EDT 1 patch Other liothyronine (Cytomel) tablet 5 mcg 5 mcg, oral, Daily, First dose on Wed10/31/24 at 1000, For 99 days Given 11/02/2024 8:57 AM EDT 5 mcg Given 11/01/2024 9:59 AM EDT 5 mcg Given 10/31/2024 11:01 AM EDT 5 mcg liothyronine (Cytomel) tablet 5 mcg 5 mcg, oral, Daily, First dose (after last modification) on Wed11/03/24 at 1000, For 96 doses Given 11/07/2024 9:00 AM EDT 5 mcg Given 11/06/2024 9:33 AM EDT 5 mcg Given 11/05/2024 10:22 AM EDT 5 mcg magnesium oxide (Mag-Ox) tablet 400 mg 400 mg, oral, Every 8 hours, First dose on Wed10/30/24 at 2100, For 3 doses Given 10/31/2024 12:26 PM EDT 400 mg Given 10/31/2024 5:32 AM EDT 400 mg Given 10/30/2024 10:16 PM EDT 400 mg magnesium oxide (Mag-Ox) tablet 400 mg 400 mg, oral, Every 8 hours PRN, Serum Magnesium 1.7-1.9 mg/dL, Starting on Wed11/03/24 at 0130, For 3 days, SICU Electrolyte Replacement Protocol These orders are intended for ICU use only. If this patient's level of care changes, this order is to be discontinued. 400 mg (1 tab) PO q8hr x 3 doses (1200 mg total replacement) If both serum magnesium and potassium levels are low, initiate magnesium repletion for 1 hour prior to starting potassium repletion. The most appropriate replacement option should be selected, preferring oral over IV replacement if possible. Given 11/05/2024 11:47 PM EDT 400 mg Given 11/05/2024 2:00 PM EDT 400 mg Given 11/05/2024 6:30 AM EDT 400 mg magnesium sulfate in water IVPB 2 g 2 g, intravenous, at 50 mL/hr, Administer over 1 Hours, Every 1 hour PRN, Serum Magnesium 1.5-1.6 mg/dL, Starting on Wed11/03/24 at 0159, For 2 doses, SICU Electrolyte Replacement Protocol These orders are intended for ICU use only. If this patient's level of care changes, this order is to be discontinued. 2 g/50 mL IV q1hr x 2 doses (4 g total replacement) If both serum magnesium and potassium levels are low, initiate magnesium repletion for 1 hour prior to starting potassium repletion. For central line administration only. New Bag 11/03/2024 3:16 AM EDT 2 g 50 mL/hr New Bag 11/03/2024 2:09 AM EDT 2 g 50 mL/hr melatonin tablet 5 mg 5 mg, oral, Nightly PRN, sleep, Starting on Wed10/30/24 at 1913, For 99 days methocarbamol (Robaxin) tablet 750 mg 750 mg, oral, 4 times daily, First dose on Wed10/30/24 at 2200, For 99 days Given 11/02/2024 8:56 AM EDT 750 mg Given 11/01/2024 9:51 PM EDT 750 mg Given 11/01/2024 5:55 PM EDT 750 mg methocarbamol (Robaxin) tablet 750 mg 750 mg, oral, 4 times daily, First dose (after last modification) on Wed11/03/24 at 1000, For 383 doses Given 11/07/2024 4:10 PM EDT 750 mg Given 11/07/2024 1:35 PM EDT 750 mg Given 11/07/2024 8:56 AM EDT 750 mg metoclopramide (Reglan) tablet 10 mg 10 mg, oral, Daily PRN, nausea and vomiting, Starting on Wed10/30/24 at 2000, For 99 days Given 11/06/2024 9:33 AM EDT 10 mg Given 11/05/2024 6:33 PM EDT 10 mg Given 11/04/2024 1:02 PM EDT 10 mg metoprolol succinate XL (Toprol-XL) 24 hr split tablet 12.5 mg 12.5 mg, oral, Daily, First dose on Wed11/01/24 at 1500, For 99 days Given 11/02/2024 8:56 AM EDT 12.5 mg Given 11/01/2024 5:54 PM EDT 12.5 mg metoprolol succinate XL (Toprol-XL) 24 hr split tablet 12.5 mg 12.5 mg, oral, Daily, First dose (after last modification) on Wed11/03/24 at 1000, For 97 doses Given 11/07/2024 8:55 AM EDT 12.5 mg Given 11/06/2024 9:33 AM EDT 12.5 mg Given 11/05/2024 10:22 AM EDT 12.5 mg metoprolol succinate XL (Toprol-XL) 24 hr split tablet 12.5 mg 12.5 mg, oral, Once, On Wed11/07/24 at 1145, For 1 dose Given 11/07/2024 12:01 PM EDT 12.5 mg metoprolol succinate XL (Toprol-XL) 24 hr tablet 25 mg 25 mg, oral, Daily, First dose (after last modification) on Wed11/08/24 at 1000, For 92 doses, Do not crush or chew. mirtazapine (Remeron) tablet 45 mg 45 mg, oral, Nightly, First dose on Wed10/30/24 at 2200, For 99 days Given 11/01/2024 10:23 PM EDT 45 mg Given 10/31/2024 10:07 PM EDT 45 mg Given 10/30/2024 10:16 PM EDT 45 mg mirtazapine (Remeron) tablet 45 mg 45 mg, oral, Nightly, First dose (after last modification) on Wed11/03/24 at 2200, For 95 doses Given 11/06/2024 9:06 PM EDT 45 mg Given 11/05/2024 11:36 PM EDT 45 mg Given 11/04/2024 10:44 PM EDT 45 mg morphine injection 1 mg 1 mg, intravenous, Once, On Wed10/30/24 at 1915, For 1 dose Given 10/30/2024 8:10 PM EDT 1 mg morphine injection 2 mg 2 mg, intravenous, Once as needed, severe pain (8-10 pain score), Starting on 11/04/24 at 1343, For 1 dose Given 11/04/2024 1:52 PM EDT 2 mg morphine injection 2 mg 2 mg, intravenous, Once, On Wed11/07/24 at 1215, For 1 dose Given 11/07/2024 12:07 PM EDT 2 mg naloxone (Narcan) injection 0.1 mg 0.1 mg, intravenous, As needed, respiratory depression, Starting on 11/05/24 at 1708, For 99 days, If respiratory rate is less than 8 breaths per minute or patient is difficult to arouse, administer naloxone slow IV push, stop all narcotics, and contact physician. Repeat as ordered every 2-3 minutes until patient's respiratory rate is greater than 12 breaths per minute. ondansetron HCl (PF) (Zofran) injection 4 mg 4 mg, intravenous, Once, On Heena 11/02/24 at 1730, For 1 dose, Intraprocedure, Administer as an IV push over 2 to 5 minutes. Given 11/02/2024 5:30 PM EDT 4 mg ondansetron HCl (PF) (Zofran) injection 4 mg 4 mg, intravenous, Every 8 hours PRN, nausea, vomiting, Starting on 11/04/24 at 1335, For 5 days, Administer as an IV push over 2 to 5 minutes. oxyCODONE (Roxicodone) immediate release tablet 5 mg 5 mg, oral, Once, On Heena 11/02/24 at 1045, For 1 dose Given 11/02/2024 10:55 AM EDT 5 mg pantoprazole (ProtoNix) EC tablet 40 mg 40 mg, oral, 2 times daily before meals, First dose on Wed10/31/24 at 0700, Do not crush, chew, or split., Indication: GERD Given 11/02/2024 5:56 AM EDT 40 mg Given 11/01/2024 5:55 PM EDT 40 mg Given 11/01/2024 5:41 AM EDT 40 mg pantoprazole (ProtoNix) EC tablet 40 mg 40 mg, oral, 2 times daily before meals, First dose (after last modification) on Wed11/03/24 at 0700, Do not crush, chew, or split., Indication: GERD Given 11/07/2024 5:00 PM EDT 40 mg Given 11/07/2024 6:08 AM EDT 40 mg Given 11/06/2024 5:04 PM EDT 40 mg polyethylene glycol (Glycolax) packet 17 g 17 g, oral, Daily, First dose on 11/06/24 at 1600, For 99 days Given 11/07/2024 8:55 AM EDT 17 g Given 11/06/2024 5:04 PM EDT 17 g potassium chloride CR (Klor-Con M20) ER tablet 20 mEq 20 mEq, oral, Every 1 hour PRN, Serum Potassium 3.6-3.7 mEq/L, Starting on Wed11/03/24 at 0131, For 99 days, SICU Electrolyte Replacement Protocol These orders are intended for ICU use only. If this patient's level of care changes, this order is to be discontinued. 20 mEq (1 tab) PO q1hr x 2 doses (40 mEq total replacement). Recheck serum potassium level 2 hours after replacement is complete. Contact provider after replacement if repeat level is less than 3 mEq/L. If both serum magnesium and potassium levels are low, initiate magnesium repletion for 1 hour prior to starting potassium repletion. The most appropriate replacement option should be selected, preferring oral over IV replacement if possible. Do not crush or chew. Given 11/05/2024 11:34 AM EDT 20 mEq Given 11/05/2024 7:31 AM EDT 20 mEq Given 11/05/2024 6:30 AM EDT 20 mEq potassium chloride CR (Klor-Con M20) ER tablet 20 mEq 20 mEq, oral, Every 1 hour PRN, Serum Potassium 3.0-3.5 mEq/L, Starting on Wed11/03/24 at 0131, For 99 days, SICU Electrolyte Replacement Protocol These orders are intended for ICU use only. If this patient's level of care changes, this order is to be discontinued. 20 mEq (1 tab) PO q1hr x 3 doses (60 mEq total replacement). Recheck serum potassium level 2 hours after replacement is complete. Contact provider after replacement if repeat level is less than 3 mEq/L. If both serum magnesium and potassium levels are low, initiate magnesium repletion for 1 hour prior to starting potassium repletion. The most appropriate replacement option should be selected, preferring oral over IV replacement if possible. Do not crush or chew. prochlorperazine (Compazine) injection 5 mg 5 mg, intravenous, Once as needed, nausea, vomiting, Starting on Heena 11/02/24 at 2220, For 1 dose, Recovery & On Unit, For IVP: give each 5mg or less over 1 minute. Given 11/02/2024 10:53 PM EDT 5 mg prochlorperazine (Compazine) injection 5 mg 5 mg, intravenous, Once as needed, nausea, vomiting, Starting on Wed11/02/24 at 2230, For 1 dose, Recovery & On Unit, For IVP: give each 5mg or less over 1 minute. Given 11/06/2024 2:44 PM EDT 5 mg rosuvastatin (Crestor) tablet 40 mg 40 mg, oral, Nightly, First dose on Wed11/07/24 at 2200, For 99 days sennosides-docusate sodium (Kadie-Colace) 8.6-50 mg per tablet 1 tablet 1 tablet, oral, Nightly PRN, constipation, Starting on Wed11/02/24 at 2356, For 99 days Given 11/06/2024 9:33 AM EDT 1 tablet Given 11/03/2024 10:02 PM EDT 1 tablet sodium chloride 0.9 % infusion 100 mL/hr, intravenous, Continuous, Starting on Wed10/30/24 at 2100, For 1 day, Indication: npo Rate/Dose Verify 10/31/2024 10:43 AM EDT 100 mL/hr 100 mL/hr New Bag 10/31/2024 9:43 AM EDT 100 mL/hr 100 mL/hr Rate/Dose Verify 10/31/2024 3:25 AM EDT 100 mL/hr 100 mL/ hr sodium chloride 0.9 % infusion 100 mL/hr, intravenous, Continuous, Starting on Wed10/31/24 at 2015, For 4 hours, Recovery & On Unit, Indication: post cath New Bag 10/31/2024 8:12 PM EDT 100 mL/hr 100 mL/hr sodium chloride 0.9 % infusion 100 mL/hr, intravenous, Continuous, Starting on Wed11/01/24 at 1715, For 5 days, Recovery & On Unit, Indication: post cath Rate/Dose Verify 11/02/2024 3:43 AM EDT 100 mL/hr 100 mL/hr New Bag 11/01/2024 9:50 PM EDT 100 mL/hr 100 mL/hr Rate/Dose Verify 11/01/2024 6:45 PM EDT 100 mL/hr 100 mL/ hr sodium chloride flush 10 mL 10 mL, intravenous, Every 8 hours PRN, line care, Starting on Wed10/30/24 at 1913, For 99 days sucralfate (Carafate) tablet 1 g 1 g, oral, 4 times daily before meals and nightly, First dose on Wed10/30/24 at 2200, For 99 days, Give on an empty stomach (1 hr before meals, at bedtime). Separate all other meds by at least 2 hours (exception: antacids may be given only 30 minutes apart). Given 11/02/2024 10:56 AM EDT 1 g Given 11/02/2024 5:56 AM EDT 1 g Given 11/01/2024 9:51 PM EDT 1 g sucralfate (Carafate) tablet 1 g 1 g, oral, 4 times daily before meals and nightly, First dose (after last modification) on Wed11/03/24 at 0700, For 383 doses, Give on an empty stomach (1 hr before meals, at bedtime). Separate all other meds by at least 2 hours (exception: antacids may be given only 30 minutes apart). Given 11/07/2024 4:10 PM EDT 1 g Given 11/07/2024 8:56 AM EDT 1 g Given 11/07/2024 6:08 AM EDT 1 g sulfur hexafluoride microsphr (Lumason) injection 24.28 mg 24.28 mg (2 mL), intravenous, Once in imaging, Starting on Wed10/31/24 at 1140, For 1 dose Given 10/31/2024 11:41 AM EDT 24.28 mg topiramate (Topamax) tablet 100 mg 100 mg, oral, 2 times daily, First dose on Wed10/30/24 at 2200, For 99 days, Crushing/splitting of tablets is not recommended due to bitter taste. Given 11/02/2024 8:56 AM EDT 100 mg Given 11/01/2024 9:51 PM EDT 100 mg Given 11/01/2024 9:59 AM EDT 100 mg topiramate (Topamax) tablet 100 mg 100 mg, oral, 2 times daily, First dose (after last modification) on Wed11/03/24 at 1000, For 191 doses, Crushing/splitting of tablets is not recommended due to bitter taste. Given 11/07/2024 9:00 AM EDT 100 mg Given 11/06/2024 9:06 PM EDT 100 mg Given 11/06/2024 9:34 AM EDT 100 mg traMADol (Ultram) tablet 50 mg 50 mg, oral, Every 6 hours PRN, moderate pain (4-7 pain score), Starting on Wed10/30/24 at 2000, For 99 days Given 11/05/2024 1:56 PM EDT 50 mg Given 11/04/2024 11:51 AM EDT 50 mg Given 11/03/2024 4:33 PM EDT 50 mg traZODone (Desyrel) tablet 100 mg 100 mg, oral, Nightly, First dose on Wed10/30/24 at 2200, For 99 days Given 11/01/2024 9:51 PM EDT 100 mg Given 10/31/2024 10:06 PM EDT 100 mg Given 10/30/2024 10:16 PM EDT 100 mg traZODone (Desyrel) tablet 100 mg 100 mg, oral, Nightly, First dose (after last modification) on Wed11/03/24 at 2200, For 95 doses Given 11/06/2024 9:06 PM EDT 100 mg Given 11/05/2024 11:35 PM EDT 100 mg Given 11/04/2024 10:44 PM EDT 100 mg trimethobenzamide (Tigan) injection 200 mg 200 mg, intramuscular, Every 6 hours PRN, nausea, vomiting, Starting on Wed10/30/24 at 2001, For 99 days, Trimethobenzamide is restricted when used inpatient. Which of the following criteria does the patient meet? QTc > 460 ms in females with multiple QTc prolonging medications or predisposition to QTc prolongation Given 11/03/2024 12:18 AM EDT 200 mg Left Anterior Thigh Given 11/01/2024 8:19 PM EDT 200 mg Ri ght Ventrogluteal Given 10/31/2024 8:12 PM EDT 200 mg Le ft Ventrogluteal verapamil (Calan) tablet 40 mg 40 mg, oral, Every 8 hours scheduled, First dose on Wed11/04/24 at 1400, For 99 days Given 11/07/2024 1:35 PM EDT 40 mg Given 11/07/2024 6:57 AM EDT 40 mg Given 11/06/2024 9:47 PM EDT 40 mg documented in this encounter Active and Recently Administered Medications Times are shown in EDT. Scheduled Medication Order 11/05/2024 11/06/2024 11/07/2024 aspirin EC tablet 81 mg 81 mg, oral, Daily, First dose on Wed11/03/24 at 1300, For 99 days, Do not crush, chew, or split. 1021 (Given - Provider: Joanna French RN) 0933 (Given - Provider: Fang Oreilly, RN) 0900 (Given - Provider: Patricia Butt, RN) atorvastatin (Lipitor) tablet 80 mg (CANCELED) 80 mg, oral, Nightly, First dose (after last modification) on Wed11/03/24 at 2200, For 96 doses 2336 (Given - Provider: Radha Godoy, RN - Comment: patient is on Carafate must seperate medications by two hours) 210 (Given - Provider: Christine Baker RN) clopidogrel (Plavix) tablet 75 mg 75 mg, oral, Daily, First dose (after last reorder) on Wed11/03/24 at 1300, For 99 days 1021 (Given - Provider: Joanna French RN) 0933 (Given - Provider: Fang Oreilly RN) 0900 (Given - Provider: Patricia Butt, DEE) enoxaparin (Lovenox) syringe 30 mg 30 mg, subcutaneous, 2 times daily, First dose on Wed11/03/24 at 1000, For 99 days 1021 (Given - Provider: Joanna French RN)233 (Given - Provider: Radha Godoy, DEE - Comment: patient is on Carafate must seperate medications by two hours) 0932 (Given - Provider: Fang Oreilly, DEE)210 (Given - Provider: Christine Baker RN) 0855 (Given - Provider: Patricia Butt RN) ergocalciferol (Vitamin D-2) capsule 50,000 Units (COMPLETED) 50,000 Units, oral, Weekly, First dose on Wed11/05/24 at 0715, For 1 day 0832 (Given - Provider: Joanna French, RN) escitalopram (Lexapro) tablet 20 mg 20 mg, oral, Daily, First dose (after last modification) on Wed11/03/24 at 1000, For 96 doses 1021 (Given - Provider: Joanna French RN) 0933 (Given - Provider: Fang Oreilly RN) 0900 (Given - Provider: Patricia Butt RN) fentaNYL (Duragesic) 12 mcg/hr 1 patch(Linked Group 1) 1 patch, transdermal, Administer over 72 Hours, Every 72 hours, First dose on 11/05/24 at 1715, For 99 days, Fentanyl patch order is a(n) initiation Do not cut patch. Rotate site with [...] per policy. Wash hands immediately after handling patch., Clinical Rationale: Other (Specify), Explanatory comment: home med for chronic pain 1738 (Medication Applied - Provider: Joanna French RN - Comment: right shoulder) 171 (Due: Medication Removed - Provider: Automatic Discharge Provider - Comment: Time automatically adjusted from order being discontinued) fentaNYL (Duragesic) 25 mcg/hr 1 patch(Linked Group 1) 1 patch, transdermal, Administer over 72 Hours, Every 72 hours, First dose on 11/05/24 at 1715, For 99 days, Fentanyl patch order is a(n) initiation Do not cut patch. Rotate site with [...] per policy. Wash hands immediately after handling patch., Clinical Rationale: Other (Specify), Explanatory comment: home med for chronic pain 1738 (Medication Applied - Provider: Joanna French RN - Comment: right shoulder) 1710 (Due: Medication Removed - Provider: Automatic Discharge Provider - Comment: Time automatically adjusted from order being discontinued) hydrocortisone (Cortef) tablet 10 mg 10 mg, oral, Daily, First dose on Wed10/31/24 at 1000, For 99 days 1022 (Given - Provider: Joanna French RN) 0934 (Given - Provider: Fang Oreilly, RN) 0855 (Given - Provider: Patricia Butt RN) insulin lispro (HumaLOG) injection 0-4 Units(Linked Group 2) 0-4 Units, subcutaneous, Nightly, First dose (after last modification) on Wed11/03/24 at 2200, For 95 doses, BG less than 110 instructions: Hold Insulin. If BG below 70, implement hypoglycemia orders., BG 110-150: 0, BG 151-200: 0, BG 201-250: 1, BG 251-300: 2, BG 301-350: 3, BG 351-400: 4, BG greater than 400 instructions: Call Physician 2199 (Not Given - Provider: Radha Godoy RN - Reason: Order parameters not met) 2199 (Not Given - Provider: Christine Baker RN - Reason: Order parameters not met) insulin lispro (HumaLOG) injection 0-5 Units(Linked Group 2) 0-5 Units, subcutaneous, 3 times daily with meals, First dose (after last modification) on Wed11/03/24 at 0800, For 288 doses, BG less than 110 instructions: Hold Insulin. If BG below 70, implement hypoglycemia orders., BG 110-150: 0, BG 151-200: 1, BG 201-250: 2, BG 251-300: 3, BG 301-350: 4, BG 351-400: 5, BG greater than 400 instructions: Call Physician 0800 (Not Given - Provider: Joanna French RN - Reason: Order parameters not met)1200 (Not Given - Provider: Joanna French RN - Reason: Order parameters not met)1700 (Not Given - Provider: Joanna French RN - Reason: Order parameters not met) 0800 (Not Given - Provider: Fang Oreilly RN - Reason: Order parameters not met)1200 (Not Given - Provider: Fang Oreilly RN - Reason: Order parameters not met)1700 (Not Given - Provider: Patricia Butt RN - Reason: Order parameters not met) 0800 (Not Given - Provider: Patricia Butt RN - Reason: Order parameters not met)1200 (Not Given - Provider: Patricia Butt RN - Reason: Order parameters not met)1700 (Not Given - Provider: Patricia Butt RN - Reason: Order parameters not met) levothyroxine (Synthroid, Levoxyl) tablet 75 mcg 75 mcg, oral, Daily before breakfast, First dose (after last modification) on Wed11/03/24 at 0600, For 96 doses 0630 (Given - Provider: Radha Godoy RN) 0554 (Given - Provider: Radha Godoy RN) 0608 (Given - Provider: Christine Baker RN) lidocaine (Lidoderm) 5 % patch 1 patch 1 patch, topical (top), Administer over 12 Hours, Every 24 hours, First dose on Wed11/06/24 at 1030, For 99 days, Apply to r thigh. 1058 (Medication Applied - Provider: Fang Oreilly RN - Comment: right Groin)2317 (Medication Removed - Provider: Christine Baker RN) 0909 (Medication Applied - Provider: Patricia Butt RN - Comment: Right upper thigh)1710 (Due: Medication Removed - Provider: Automatic Discharge Provider - Comment: Time automatically adjusted from order being discontinued) liothyronine (Cytomel) tablet 5 mcg 5 mcg, oral, Daily, First dose (after last modification) on Wed11/03/24 at 1000, For 96 doses 1022 (Given - Provider: Joanna French RN) 0933 (Given - Provider: Fang Oreilly RN) 0900 (Given - Provider: Patricia Butt RN) methocarbamol (Robaxin) tablet 750 mg 750 mg, oral, 4 times daily, First dose (after last modification) on Wed11/03/24 at 1000, For 383 doses 1021 (Given - Provider: Joanna French, DEE)1356 (Given - Provider: Joanna French RN)1833 (Given - Provider: Joanna French RN)2335 (Given - Provider: Radha Godoy RN - Comment: patient is on Carafate must seperate medications by two hours) 0933 (Given - Provider: Fang Oreilly RN)1302 (Given - Provider: Fang Oreilly RN)1704 (Given - Provider: Patricia Butt RN)2107 (Given - Provider: Christine Baker RN) 0856 (Given - Provider: Patricia Butt RN)1335 (Given - Provider: Patricia Butt RN)1610 (Given - Provider: Patricia Butt RN) metoprolol succinate XL (Toprol-XL) 24 hr split tablet 12.5 mg (CANCELED) 12.5 mg, oral, Daily, First dose (after last modification) on Wed11/03/24 at 1000, For 97 doses 1022 (Given - Provider: Joanna French RN) 0933 (Given - Provider: Fang Oreilly RN) 0855 (Given - Provider: Patricia Butt RN) metoprolol succinate XL (Toprol-XL) 24 hr split tablet 12.5 mg (COMPLETED) 12.5 mg, oral, Once, On Wed11/07/24 at 1145, For 1 dose 1201 (Given - Provider: Patricia Butt RN) metoprolol succinate XL (Toprol-XL) 24 hr tablet 25 mg 25 mg, oral, Daily, First dose (after last modification) on Wed11/08/24 at 1000, For 92 doses, Do not crush or chew. mirtazapine (Remeron) tablet 45 mg 45 mg, oral, Nightly, First dose (after last modification) on Wed11/03/24 at 2200, For 95 doses 2336 (Given - Provider: Radha Godoy RN - Comment: patient is on Carafate must seperate medications by two hours) 210 (Given - Provider: Christine Baker RN) morphine injection 2 mg (COMPLETED) 2 mg, intravenous, Once, On Wed11/07/24 at 1215, For 1 dose 1207 (Given - Provider: Patricia Butt RN) pantoprazole (ProtoNix) EC tablet 40 mg 40 mg, oral, 2 times daily before meals, First dose (after last modification) on Wed11/03/24 at 0700, Do not crush, chew, or split., Indication: GERD 0641 (Given - Provider: Radha Godoy RN)1634 (Given - Provider: Joanna French RN) 0601 (Given - Provider: Radha Godoy RN)1704 (Given - Provider: Patricia Butt RN) 0608 (Given - Provider: Christine Baker RN)1700 (Given - Provider: Patricia Butt, RN) polyethylene glycol (Glycolax) packet 17 g 17 g, oral, Daily, First dose on Wed11/06/24 at 1600, For 99 days 1704 (Given - Provider: Patricia Butt RN) 0855 (Given - Provider: Patricia Butt RN) prochlorperazine (Compazine) injection 10 mg 10 mg, intravenous, Once, On Heena 11/02/24 at 1800, For 1 dose, Give IV if patient is unable to take orally. Give IM if patient is unable to take orally and does not have IV access. rosuvastatin (Crestor) tablet 40 mg 40 mg, oral, Nightly, First dose on Wed11/07/24 at 2200, For 99 days sucralfate (Carafate) tablet 1 g 1 g, oral, 4 times daily before meals and nightly, First dose (after last modification) on Wed11/03/24 at 0700, For 383 doses, Give on an empty stomach (1 hr before meals, at bedtime). Separate all other meds by at least 2 hours (exception: antacids may be given only 30 minutes apart). 0055 (Given - Provider: Radha Godoy RN - Comment: Patient wanted to wait two hours after night time meds to take this dose)0832 (Given - Provider: Joanna French RN)1026 (Given - Provider: Joanna French, DEE)1639 (Given - Provider: Joanna French, RN)2106 (Given - Provider: Radha Godoy RN) 0934 (Given - Provider: Fang Oreilly, DEE)1100 (Not Given - Provider: Fang Oreilly RN - Reason: Patient/family refused - Comment: took 7 am dose late)1704 (Given - Provider: Patricia Butt RN)2107 (Given - Provider: Christine Baker RN) 0608 (Given - Provider: Christine Baker RN)0856 (Given - Provider: Patricia Butt, DEE)1610 (Given - Provider: Patricia Butt, RN) topiramate (Topamax) tablet 100 mg 100 mg, oral, 2 times daily, First dose (after last modification) on Wed11/03/24 at 1000, For 191 doses, Crushing/splitting of tablets is not recommended due to bitter taste. 1023 (Given - Provider: Joanna French, RN)2336 (Given - Provider: Radha Godoy RN - Comment: patient is on Carafate must seperate medications by two hours) 0934 (Given - Provider: Fang Oreilly, RN)2106 (Given - Provider: Christine Baker, RN) 0900 (Given - Provider: Patricia Butt RN) traZODone (Desyrel) tablet 100 mg 100 mg, oral, Nightly, First dose (after last modification) on Wed11/03/24 at 2200, For 95 doses 2335 (Given - Provider: Radha Godoy RN - Comment: patient is on Carafate must seperate medications by two hours) 2106 (Given - Provider: Christine Baker RN) verapamil (Calan) tablet 40 mg 40 mg, oral, Every 8 hours scheduled, First dose on 11/04/24 at 1400, For 99 days 0630 (Given - Provider: Radha Godoy RN)1355 (Given - Provider: Joanna French RN)2336 (Given - Provider: Radha Godoy RN - Comment: patient is on Carafate must seperate medications by two hours) 0554 (Given - Provider: Radha Godoy RN)1302 (Given - Provider: Fang Oreilly, DEE)2147 (Given - Provider: Christine Baker RN) 0657 (Given - Provider: Christine Baker RN)1335 (Given - Provider: Patricia Butt RN) Continuous Medication Order 11/05/2024 11/06/2024 11/07/2024 Adult Cyclic 3-in-1 TPN () 2,300 mL, intravenous, Administer over 16 Hours, Cyclic TPN, Starting on 11/04/24 at 2200, For 24 hours, NOTE: 158.5 ml/hr x 13 hr ---->79.8 ml/hr last 3 hrs Use a 1.2 micron filter.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 1130 (Rate/Dose Change - Provider: Joanna French RN)1200 (Rate/Dose Verify - Provider: Joanna French RN)1300 (Rate/Dose Verify - Provider: Joanna French RN)1440 (Stopped - Provider: Joanna French RN) Adult Cyclic 3-in-1 TPN 2,300 mL, intravenous, Administer over 16 Hours, Cyclic TPN, Starting on Wed11/06/24 at 2200, For 24 hours, NOTE: 158.5 ml/hr x 13 hr ---->79.8 ml/hr last 3 hrs Use a 1.2 micron filter.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 2155 (New Bag - Provider: Christine Baker RN) 0112 (Rate/Dose Verify - Provider: Christine Baker RN)0606 (Rate/Dose Verify - Provider: Christine Baker RN)1030 (Rate/Dose Change - Provider: Patricia Butt RN - Comment: Rate Change)1330 (Rate/Dose Verify - Provider: Patricia Butt RN)1355 (Stopped - Provider: Patricia Butt RN) PRN Medication Order 11/05/2024 11/06/2024 11/07/2024 acetaminophen (Tylenol) tablet 650 mg 650 mg, oral, Every 8 hours PRN, mild pain (1-3 pain score), (1-3), Starting on Wed11/03/24 at 0851 1633 (Given - Provider: Joanna French RN) albuterol 90 mcg/actuation inhaler 2 puff 2 puff, inhalation, Every 6 hours PRN, shortness of breath, wheezing, Starting on Wed10/30/24 at 1959 albuterol 90 mcg/actuation inhaler 2 puff 2 puff, inhalation, Every 6 hours PRN, wheezing, shortness of breath, Starting on Wed11/09/24 at 1316 dextrose 50 % in water (D50W) syringe 25 g(Linked Group 3) 25 g, intravenous, Every 15 min PRN, capillary blood glucose < 70 mg/dL and patient unable to take oral and has IV access, Starting on Wed10/30/24 at 2050, For 99 days, - Recheck blood glucose 5 minutes after dextrose administration. - Repeat treatment as ordered until blood glucose is greater than or equal to 80 mg/dL. - Provide a snack/meal within 1 hour after correction of hypoglycemia if not NPO. - If patient NPO or on enteral tube feeds, contact physician for potential additional interventions(s) (i.e. 5% or 10% dextrose IV fluids or tube feeding bolus) diphenhydrAMINE (BENADryl) injection 12.5 mg (CANCELED) 12.5 mg, intravenous, Every 6 hours PRN, nausea/vomiting, Starting on Tu10/31/24 at 1107, For 99 days 0400 (Given - Provider: Radha Godoy RN)1030 (Given - Provider: Joanna French RN)1634 (Given - Provider: Joanna French RN)2249 (Given - Provider: Radha Godoy RN) 0550 (Given - Provider: Radha Godoy RN)1058 (Given - Provider: Fang Oreilly, RN)1704 (Given - Provider: Patricia Butt, RN) diphenhydrAMINE (BENADryl) injection 50 mg 50 mg, intravenous, Every 6 hours PRN, nausea/vomiting, Starting on 11/06/24 at 2135, For 93 days 2313 (Given - Provider: Christine Baker RN) 0613 (Given - Provider: Christine Baker RN)1201 (Given - Provider: Patricia Butt RN) fentaNYL (Sublimaze) injection 25 mcg (CANCELED) 25 mcg, intravenous, Every 2 hour PRN, severe pain (8-10 pain score), chest pain, Starting on 11/04/24 at 1528, For 99 days 0753 (Given - Provider: Joanna French RN)1038 (Given - Provider: Joanna French RN)1225 (Given - Provider: Joanna French RN)1446 (Given - Provider: Joanna French RN)1633 (Given - Provider: Joanna French RN)1934 (Given - Provider: Radha Godoy RN)2224 (Given - Provider: Radha Godoy RN) 0700 (Given - Provider: Radha Godoy RN)0908 (Given - Provider: Fang Oreilly, DEE)1100 (Given - Provider: Fang Oreilly, DEE)1241 (Given - Provider: Fang Oreilly, RN)1444 (Given - Provider: Patricia Butt RN)1704 (Given - Provider: Patricia Butt RN)1913 (Given - Provider: Patricia Butt RN) fentaNYL (Sublimaze) injection 50 mcg (CANCELED) 50 mcg, intravenous, Every 2 hour PRN, severe pain (8-10 pain score), use only if oral route not available or oral medications ineffective., Starting on Wed11/06/24 at 2200, For 99 days 220 (Given - Provider: Christine Baker RN - Comment: bottle was thrown out when wasting) fentaNYL (Sublimaze) injection 50 mcg (CANCELED) 50 mcg, intravenous, Every 4 hours PRN, severe pain (8-10 pain score), use only if oral route not available or oral medications ineffective., Starting on Wed11/06/24 at 2229 0259 (Given - Provider: Christine Baker RN)0612 (Given - Provider: Christine Baker RN) glucose chewable tablet 24 g(Linked Group 3) 24 g, oral, Every 15 min PRN, capillary blood glucose < 70 mg/dL and patient alert and eating, Starting on Wed10/30/24 at 2050, For 99 days, - Recheck blood glucose 5 minutes after dextrose administration. - Repeat treatment as ordered until blood glucose is greater than or equal to 80 mg/dL. - Provide a snack/meal within 1 hour after correction of hypoglycemia if not NPO. - If patient NPO or on enteral tube feeds, contact physician for potential additional interventions(s) (i.e. 5% or 10% dextrose IV fluids or tube feeding bolus) HYDROcodone-acetaminophen (Marcellus) 5-325 mg per tablet 1 tablet(Linked Group 4) 1 tablet, oral, Every 4 hours PRN, moderate pain (4-7 pain score), Starting on [facility] 11/02/24 at 1331, For 96 days 0401 (See Alternative - Provider: Radha Godoy, DEE)1138 (See Alternative - Provider: Joanna French, RN)1604 (See Alternative - Provider: Joanna French, RN) 0553 (See Alternative - Provider: Radha Godoy RN)0932 (See Alternative - Provider: Fang Oreilly, DEE)1300 (See Alternative - Provider: Fang Oreilly, RN) 0909 (See Alternative - Provider: Patricia Butt RN)1449 (See Alternative - Provider: Patricia Butt RN) HYDROcodone-acetaminophen (Marcellus) 5-325 mg per tablet 2 tablet(Linked Group 4) 2 tablet, oral, Every 4 hours PRN, severe pain (8-10 pain score), Starting on Heena 11/02/24 at 1331, For 96 days 0401 (Given - Provider: Radha Godoy RN)1138 (Given - Provider: Joanna French, RN)1604 (Given - Provider: Joanna French, RN) 0553 (Given - Provider: Radha Godoy, DEE)0932 (Given - Provider: Fang Oreilly, DEE)1300 (Given - Provider: Fang Oreilly RN) 0909 (Given - Provider: Patricia Butt RN)1449 (Given - Provider: Patricia Butt RN) HYDROmorphone (Dilaudid) injection 0.2 mg (CANCELED) 0.2 mg, intravenous, Every 3 hours PRN, use only if oral route not available or oral medications ineffective., moderate-severe pain (4-10 pain score), Starting on Wed11/03/24 at 1429, For 99 days 0638 (Given - Provider: Radha Godoy RN) hydrOXYzine pamoate (Vistaril) capsule 50 mg 50 mg, oral, Nightly PRN, anxiety, Starting on Wed10/30/24 at 2000, For 99 days magnesium oxide (Mag-Ox) tablet 400 mg () 400 mg, oral, Every 8 hours PRN, Serum Magnesium 1.7-1.9 mg/dL, Starting on Wed11/03/24 at 0130, For 3 days, SICU Electrolyte Replacement Protocol These orders are intended for ICU use only. If this patient's level of care changes, this order is to be discontinued. 400 mg (1 tab) PO q8hr x 3 doses (1200 mg total replacement) If both serum magnesium and potassium levels are low, initiate magnesium repletion for 1 hour prior to starting potassium repletion. The most appropriate replacement option should be selected, preferring oral over IV replacement if possible. 0630 (Given - Provider: Radha Godoy RN)1400 (Given - Provider: Joanna French, DEE)2347 (Given - Provider: Radha Godoy, DEE) melatonin tablet 5 mg 5 mg, oral, Nightly PRN, sleep, Starting on Wed10/30/24 at 1913, For 99 days metoclopramide (Reglan) tablet 10 mg 10 mg, oral, Daily PRN, nausea and vomiting, Starting on 10/30/24 at 2000, For 99 days 1833 (Given - Provider: Joanna French, RN) 0933 (Given - Provider: Fang Oreilly, DEE) naloxone (Narcan) injection 0.1 mg 0.1 mg, intravenous, As needed, respiratory depression, Starting on Wed11/05/24 at 1708, For 99 days, If respiratory rate is less than 8 breaths per minute or patient is difficult to arouse, administer naloxone slow IV push, stop all narcotics, and contact physician. Repeat as ordered every 2-3 minutes until patient's respiratory rate is greater than 12 breaths per minute. ondansetron HCl (PF) (Zofran) injection 4 mg 4 mg, intravenous, Every 8 hours PRN, nausea, vomiting, Starting on Wed11/04/24 at 1335, For 5 days, Administer as an IV push over 2 to 5 minutes. potassium chloride CR (Klor-Con M20) ER tablet 20 mEq 20 mEq, oral, Every 1 hour PRN, Serum Potassium 3.6-3.7 mEq/L, Starting on Wed11/03/24 at 0131, For 99 days, SICU Electrolyte Replacement Protocol These orders are intended for ICU use only. If this patient's level of care changes, this order is to be discontinued. 20 mEq (1 tab) PO q1hr x 2 doses (40 mEq total replacement). Recheck serum potassium level 2 hours after replacement is complete. Contact provider after replacement if repeat level is less than 3 mEq/L. If both serum magnesium and potassium levels are low, initiate magnesium repletion for 1 hour prior to starting potassium repletion. The most appropriate replacement option should be selected, preferring oral over IV replacement if possible. Do not crush or chew. 0630 (Given - Provider: Radha Godoy RN)0731 (Given - Provider: Radha Godoy RN)1134 (Given - Provider: Joanna French, DEE) potassium chloride CR (Klor-Con M20) ER tablet 20 mEq 20 mEq, oral, Every 1 hour PRN, Serum Potassium 3.0-3.5 mEq/L, Starting on Wed11/03/24 at 0131, For 99 days, SICU Electrolyte Replacement Protocol These orders are intended for ICU use only. If this patient's level of care changes, this order is to be discontinued. 20 mEq (1 tab) PO q1hr x 3 doses (60 mEq total replacement). Recheck serum potassium level 2 hours after replacement is complete. Contact provider after replacement if repeat level is less than 3 mEq/L. If both serum magnesium and potassium levels are low, initiate magnesium repletion for 1 hour prior to starting potassium repletion. The most appropriate replacement option should be selected, preferring oral over IV replacement if possible. Do not crush or chew. 1134 (Not Given - Provider: Joanna French RN - Reason: Other - Comment: See administration at 1134) prochlorperazine (Compazine) injection 5 mg (COMPLETED) 5 mg, intravenous, Once as needed, nausea, vomiting, Starting on He[place] 11/02/24 at 2230, For 1 dose, Recovery & On Unit, For IVP: give each 5mg or less over 1 minute. 1444 (Given - Provider: Patricia Butt RN) sennosides-docusate sodium (Kadie-Colace) 8.6-50 mg per tablet 1 tablet 1 tablet, oral, Nightly PRN, constipation, Starting on [place] 11/02/24 at 2356, For 99 days 0933 (Given - Provider: Fang Oreilly RN) sodium chloride flush 10 mL(Linked Group 5) 10 mL, intravenous, Every 8 hours PRN, line care, Starting on 10/30/24 at 1913, For 99 days traMADol (Ultram) tablet 50 mg (CANCELED) 50 mg, oral, Every 6 hours PRN, moderate pain (4-7 pain score), Starting on Wed10/30/24 at 2000, For 99 days 1356 (Given - Provider: Joanna French, DEE) trimethobenzamide (Tigan) injection 200 mg 200 mg, intramuscular, Every 6 hours PRN, nausea, vomiting, Starting on Wed10/30/24 at 2001, For 99 days, Trimethobenzamide is restricted when used inpatient. Which of the following criteria does the patient meet? QTc > 460 ms in females with multiple QTc prolonging medications or predisposition to QTc prolongation Linked Groups Order Group 1: fentaNYL (Duragesic) 12 mcg/hr 1 patchJump to med 1 patch, transdermal, Administer over 72 Hours, Every 72 hours, First dose on 11/05/24 at 1715, For 99 days, Fentanyl patch order is a(n) initiation Do not cut patch. Rotate site with [...] per policy. Wash hands immediately after handling patch., Clinical Rationale: Other (Specify), Explanatory comment: home med for chronic pain And fentaNYL (Duragesic) 25 mcg/hr 1 patchJump to med 1 patch, transdermal, Administer over 72 Hours, Every 72 hours, First dose on 11/05/24 at 1715, For 99 days, Fentanyl patch order is a(n) initiation Do not cut patch. Rotate site with [...] per policy. Wash hands immediately after handling patch., Clinical Rationale: Other (Specify), Explanatory comment: home med for chronic pain Group 2: insulin lispro (HumaLOG) injection 0-5 UnitsJump to med 0-5 Units, subcutaneous, 3 times daily with meals, First dose (after last modification) on Wed11/03/24 at 0800, For 288 doses, BG less than 110 instructions: Hold Insulin. If BG below 70, implement hypoglycemia orders., BG 110-150: 0, BG 151-200: 1, BG 201-250: 2, BG 251-300: 3, BG 301-350: 4, BG 351-400: 5, BG greater than 400 instructions: Call Physician And insulin lispro (HumaLOG) injection 0-4 UnitsJump to med 0-4 Units, subcutaneous, Nightly, First dose (after last modification) on Wed11/03/24 at 2200, For 95 doses, BG less than 110 instructions: Hold Insulin. If BG below 70, implement hypoglycemia orders., BG 110-150: 0, BG 151-200: 0, BG 201-250: 1, BG 251-300: 2, BG 301-350: 3, BG 351-400: 4, BG greater than 400 instructions: Call Physician Group 3: glucose chewable tablet 24 gJump to med 24 g, oral, Every 15 min PRN, capillary blood glucose < 70 mg/dL and patient alert and eating, Starting on Wed10/30/24 at 2049, For 99 days, - Recheck blood glucose 5 minutes after dextrose administration. - Repeat treatment as ordered until blood glucose is greater than or equal to 80 mg/dL. - Provide a snack/meal within 1 hour after correction of hypoglycemia if not NPO. - If patient NPO or on enteral tube feeds, contact physician for potential additional interventions(s) (i.e. 5% or 10% dextrose IV fluids or tube feeding bolus) Or dextrose 50 % in water (D50W) syringe 25 gJump to med 25 g, intravenous, Every 15 min PRN, capillary blood glucose < 70 mg/dL and patient unable to take oral and has IV access, Starting on Wed10/30/24 at 2049, For 99 days, - Recheck blood glucose 5 minutes after dextrose administration. - Repeat treatment as ordered until blood glucose is greater than or equal to 80 mg/dL. - Provide a snack/meal within 1 hour after correction of hypoglycemia if not NPO. - If patient NPO or on enteral tube feeds, contact physician for potential additional interventions(s) (i.e. 5% or 10% dextrose IV fluids or tube feeding bolus) Group 4: HYDROcodone-acetaminophen (Marcellus) 5-325 mg per tablet 1 tabletJump to med 1 tablet, oral, Every 4 hours PRN, moderate pain (4-7 pain score), Starting on Wed11/02/24 at 1331, For 96 days Or HYDROcodone-acetaminophen (Marcellus) 5-325 mg per tablet 2 tabletJump to med 2 tablet, oral, Every 4 hours PRN, severe pain (8-10 pain score), Starting on Wed11/02/24 at 1331, For 96 days Group 5: Insert peripheral IV (CANCELED) Once, On Wed10/30/24 at 1914, For 1 occurrence And Saline lock IV (CANCELED) Once, On Wed10/30/24 at 1913, For 1 occurrence And sodium chloride flush 10 mLJump to med 10 mL, intravenous, Every 8 hours PRN, line care, Starting on Wed10/30/24 at 191, For 99 days documented in this encounter Care Teams Outreach Worker Relationship Specialty Start Date End Date Thomas Alas MD [address] [place], [place] [id number] PCP - General Family Medicine 08/17/24 documented as of this encounter
--- OUTSIDE RECORDS SUMMARY | 2024-10-31 05:45 | XMS_ITS ---
Author Organization The [facility] in [place] Address [address] [place] [address] Care Team Providers Care Ms Sql Dba Name Role Phone Brandyn Alas Primary Care Provider [phone] REASON FOR VISIT ER F/U Encounters Encounter Location Date Provider Diagnosis [facility] [address] [place] [address] 10/31/2024 Brandyn Alas Plan Of Treatment No Information Progress Notes * Abbey KONG MDOB:1990 (34 yo F)Acc No.[id number]:10/31/2024 UNLOCKED PROGRESS NOTE Progress Note Patient: Abbey OSBORNE Provider: Du Alas MD (TTC) :1990 A ge:34 Y S ex:Female Date:10/31/2024 Address:[address] [place], [place] [phone] Subjective: * Chief Complaints: * 1 . ER F/U. * Medical History: Objective: * Vitals: Assessment: Plan: * Treatment: * * Electronic signature of Brandyn Alas MD, [id number] on 11/14/2024 at 04:46 PM EDT Sign off status: Pending Visit Status: N /S N/C (No Show/No Charge) * Provider: Du Alas MD (TTC) Date: 0 10/31/2024 Generated for Hailey jordan/Ari/Chance on: 0 11/14/2024 04:46 PM EDT
--- OUTSIDE RECORDS SUMMARY | 2024-10-31 13:30 | XMS_ITS | Encounter Summary ---
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 Name Role Phone Thomas Alas MD Primary Care Provider [phone] Reason for Visit * Auth/Cert (Routine) Specialty Diagnoses / Procedures Referred By Contac t Referred To Contact Diagnoses Chest pain NSTEMI Procedures NO CODED SERVICE Sandeep Casey MD [address] [place] [address] Phone: tel: fax: [facility] [address] [place] [address] Phone: tel: fax: Referral ID Status Reason Start Date Expiration Date Visits Re quested Visits Authorized [id number] 1 1 Encounter Details Date Type Department Care Team (Late st Contact Info) Description 10/31/2024 1:30 PM EDT - 10/31/2024 2:30 PM EDT Surgery [facility] Vascular Lab [address] [place] [address] Tino Gilmore MD [address] [place] [address] Coronary angiography Social History Tobacco Use Types Packs/Day Years Used Date Smoking Tobacco: Never Smokeless Tobacco: Never C Utilities Answer Date Recorded In the past 12 months has [facility] electric, gas, oil, or water company threatened [...] any time in the past 12 m [facility], were you homeless or living in a fdc (including now)? No 10/30/2024 Hunger Vital Sign [...] Sign Reading Time Taken Comments Blood Pressure 112/81 10/31/2024 12:00 PM EDT Pulse 81 10/31/2024 12:00 PM EDT Temperature 36.5 C (97.7 F) 10/31/2024 12:00 PM EDT Respiratory Rate 14 10/31/2024 12:00 PM EDT Oxygen Saturation 100% 10/31/2024 12:00 PM EDT Inhaled Oxygen Concentration - - Weight 82.1 kg (181 lb) 10/31/2024 3:20 AM EDT Height 167.6 cm (5' 5.98 ) 10/31/2024 3:20 AM ED T Body Mass Index 29.62 10/31/2024 3:20 AM EDT documented in this encounter Functional Status * Qureshi Fall Risk Question Answer Date of Assessment Author History of Falling, Immediat e or Within 3 Months 0 10/31/2024 8:30 AM EDT Jami Bridges R N Secondary Diagnosis 15 10/31/2024 8:30 AM ED T Jami Bridges RN Ambulatory Aid 0 10/31/2024 8:30 AM EDT Jami Simmons RN Intravenous Therapy/Heparin Lock 20 11/01/19 8:30 AM EDT Jami Bridges RN Gait/Transferring 0 10/31/2024 8:30 AM EDT Jami Bridges RN Mental Status 0 10/31/2024 8:30 AM EDT Jami Currie RN Qureshi Fall Risk Score 35 10/31/2024 8:30 AM EDT Jami Bridges RN * Cyrus Scale Question Answer Date of Assessment Author Cyrus Milner Risk Interventions Continue to assess patient according to level of care 10/31/2024 8:30 AM EDT Jami Bridges RN Sensory Perceptions 4 10/31/2024 8:30 AM ED T Jami Bridges RN Moisture 4 10/31/2024 8:30 AM EDT Jami West RN Activity 3 10/31/2024 8:30 AM EDT Jami West RN Mobility 4 10/31/2024 8:30 AM EDT Jami West RN Nutrition 3 10/31/2024 8:30 AM EDT Jami West RN Friction and Shear 3 10/31/2024 8:30 AM EDT Jami Bridges RN Cyrus Scale Score 21 10/31/2024 8:30 AM EDT Jami Bridges RN * Patient's Stated Pain Goal Answer Date of Assessment Author Annia pain 10/31/2024 12:36 PM EDT Jami Bridges RN * Centerpoint Fall Risk Interventions Question Answer Date of Assessment Author Centerpoint Fall Risk Interventions Complete 025 8:30 AM EDT Jami Bridges RN * Pain Assessment Timer Question Answer Date of Assessment Author Restart Pain Assessment Timer Yes 10/31/2024 12:36 PM EDT Jami Bridges RN * Question Answer Date of Assessment Author BP 112/81 10/31/2024 12:00 PM EDT Jami Currie RN Pulse 81 10/31/2024 12:00 PM EDT Jami Currie RN Heart Rate Source Monitor 10/31/2024 12:00 PM EDT Jami Bridges RN Patient Position Lying 10/31/2024 12:00 PM EDT Jami Bridges RN * Sepsis Model Scores Question Answer Date of Assessment Author Early Detection of Sepsis Score 1.26 2:15 PM EDT Delano Guzman * Pain Assessment Question Answer Date of Assessment Author Pain Location Chest 10/30/2024 8:10 PM EDT Fern Terry RN Pain Orientation Left 10/30/2024 8:10 PM EDT Fern Quinn RN Pain Interventions Medication (See MAR) 10/30/2024 8:1 0 PM EDT Fern Pierce RN Pain Onset Ongoing 10/30/2024 8:10 PM EDT Fern Horn RN Response to Interventions improved 10/31/2024 6:33 AM EDT Fern Pierce RN Clinical Progression Not changed 10/31/2024 10:31 AM EDT Jami Bridges RN Pain Assessment No/denies pain 10/31/2024 10:31 AM EDT Jami Bridges RN * Pain Score Answer Date of Assessment Author 8 10/31/2024 12:36 PM EDT Jami Bridges RN * Audit Alcohol Screening Question Answer [...] Score 0 10/30/2024 7:53 PM EDT Maribel Merchant, DEE * Deterioration Index Score Question Answer Date of Assessment Author Deterioration Index Score 19.56 10/31/2024 2:15 PM EDT Chronicles, Batchq * Head, Ears, Eyes, Nose, and Throat (HEENT) Question Answer Date of Assessment Author Head, Ears, Eyes, Nose, and Throat (WDL) WDL 10/30/2024 8:10 PM EDT Fern Pierce R N * Question Answer Date of Assessment Author MAP (mmHg) 77 10/31/2024 4:00 AM EDT Fern Horn RN * Short Portable Mental Status Question Answer Date of Assessment Author What are the date, month, year? 0 8:10 PM EDT Fern Pierce RN What is the day of the week? 0 10/30/2024 8 :10 PM EDT Fern Pierce RN What is the name of this place? 0 8:10 PM EDT Fern Pierce RN What is your phone number? 0 10/30/2024 8:1 0 PM EDT Fern Pierce RN How old are you? 0 10/30/2024 8:10 PM EDT Fern Quinn RN When were you born? 0 10/30/2024 8:10 PM ED T Fern Pierce RN Who is the current president? 0 10/30/2024 8:10 PM EDT Fern Pierce RN Who was the president before him? 0 025 8:10 PM EDT Fern Pierce RN * Fall Risk Level Question Answer Date of Assessment Author Mobility zone Low (Green Zone) 10/31/2024 8:30 AM EDT Jami Bridges RN Qureshi fall risk zone Low (Green Zone) 10/31/2024 8:30 AM EDT Jami Bridges RN Mental status questionaire zone Low (Green Zone) 10/31/2024 8:30 AM EDT Jami Bridges R N * Skin Assessment Sign off Question Answer Date of Assessment Author Dual Sign-off - Admission/Transfer Stacie Cadet RN 10/30/2024 6:32 PM EDT Angeline Keyes RN Any new wounds identified on admission/transfer? No 10/30/2024 6:32 PM EDT Carito Keyes RN Provider notified of new wound No 10/30/2024 6:32 PM EDT Angeline Keyes RN * Question Answer Date of Assessment Author SpO2 100 10/31/2024 12:00 PM EDT Jami Currie RN * Question Answer Date of Assessment Author Pulse rate from Plethysmogram (bpm) 69 10/31 4:00 AM EDT Fern Pierce RN * Question Answer Date of Assessment Author Swallow Able to swallow gina ds and liquids without difficulty 10/30/2024 6:32 PM EDT Stacie Keyes RN * Question Answer Date of Assessment Author Cardiac Rhythm NSR 10/31/2024 8:30 AM EDT Jami Simmons RN Ectopy Premature ventricula r contractions 10/30/2024 8:10 PM EDT Fern Pierce RN Ectopy Frequency Rare 10/30/2024 8:10 PM EDT Fern Quinn RN Cardiac Regularity Regular 10/31/2024 8:30 AM EDT Jami Bridges RN Drawing Frame Tender Status On 10/30/2024 6:32 PM EDT Stacie Keyes RN Jugular Venous Distention (JVD) No 10/31/2024 8:30 AM EDT Jami Bridges RN Cardiac Symptoms Other (Comment) 10/30/2024 8:10 PM ED T Fern Pierce RN Heart Sounds S1, S2 10/31/2024 8:30 AM EDT Jami West RN * Gastrointestinal Question Answer Date of Assessment Author Last BM Date 1984[address] 10/31/2024 8:30 AM EDT Jami West RN Abdominal Tenderness Nontender 10/31/2024 8:30 AM E DT Jami Bridges RN Bowel Sounds (All Quadrants) Active 10/30/2024 8 :10 PM EDT Fern Pierce RN Gastrointestinal (WDL) X 10/31/2024 8:30 AM EDT Jami Bridges RN Abdomen Inspection Soft;Rounded 10/31/2024 8:30 AM EDT Jami Bridges RN Gastrointestinal Symptoms Nausea 10/31/2024 8:30 AM EDT Jami Bridges RN Bowel Sounds All quadrants 10/31/2024 8:30 AM EDT Jami Currie, DEE * Peripheral Vascular Question Answer Date of Assessment Author Peripheral Vascular ([facility]) [facility] 10/31/2024 8:30 AM EDT Jami Bridges RN * Musculoskeletal Question Answer Date of Assessment Author Musculoskeletal ([facility]) [facility] 10/31/2024 8:30 AM EDT Jami Bridges RN * Psychosocial Question Answer Date of Assessment Author Psychosocial ([facility]) [facility] 10/31/2024 8:30 AM EDT Jami Bridges RN * Qureshi Fall Risk Question Answer Date of Assessment Author History of Falling, Immediat e or Within 3 Months 0 10/31/2024 8:30 AM EDT Jami Bridges, R N Secondary Diagnosis 15 10/31/2024 8:30 AM ED T Jami Bridges RN Ambulatory Aid 0 10/31/2024 8:30 AM EDT Jami Simmons RN Intravenous Therapy/Heparin Lock 20 11/01/19 25 8:30 AM EDT Jami Bridges RN Gait/Transferring 0 10/31/2024 8:30 AM EDT Jami Bridges RN Mental Status 0 10/31/2024 8:30 AM EDT Jami Currie RN Qureshi Fall Risk Score 35 10/31/2024 8:30 AM EDT Jami Bridges RN * Cyrus Scale Question Answer Date of Assessment Author Cyrus No Risk Interventions Continue to assess patient according to level of care 10/31/2024 8:30 AM EDT Jami Bridges RN Sensory Perceptions 4 10/31/2024 8:30 AM ED T Jami Bridges RN Moisture 4 10/31/2024 8:30 AM EDT Jami West RN Activity 3 10/31/2024 8:30 AM EDT Jami West RN Mobility 4 10/31/2024 8:30 AM EDT Jami West RN Nutrition 3 10/31/2024 8:30 AM EDT Jami West RN Friction and Shear 3 10/31/2024 8:30 AM EDT Jami Bridges RN Cyrus Scale Score 21 10/31/2024 8:30 AM EDT Jami Bridges RN * Charting Type Question Answer Date of Assessment Author Charting Type Shift assessment 10/31/2024 8:30 AM EDT Jami Bridges RN * Patient's Stated Pain Goal Answer Date of Assessment Author No pain 10/31/2024 12:36 PM EDT Jami Bridges RN * Values/Beliefs Question Answer Date of Assessment Author Cultural Requests During Hospitalization none 10/30/2024 7:53 PM EDT Maribel Merchant R N Spiritual Requests During Hospitalization none 10/30/2024 7:53 PM EDT Maribel Merchant R N * Genitourinary Question Answer Date of Assessment Author Genitourinary (WDL) WDL 10/31/2024 8:30 AM ED T Jami Bridges RN * Patient Monitoring Question Answer Date of Assessment Author Frequency of Checks Twice per hour, standard 10/31/2024 8:30 AM EDT Jami Bridges RN * Safe Environment Question Answer Date of Assessment Author Arm Bands On ID;Allergies 10/31/2024 8:30 AM EDT Jami West RN Side Rails/Bed Safety 2/4 10/31/2024 8:30 AM EDT Jami Bridges RN Bed Alarms Off 10/31/2024 8:30 AM EDT Jami West RN The Patient's Environment is Safe Yes 10/31/2024 8:30 AM EDT Jami Bridges R N * Mobility Question Answer Date of Assessment Author Resting bed 10/31/2024 8:30 AM JUNT Jami Bridges RN Activity Performed Resting in bed 10/31/2024 8: 30 AM EDT Jami Bridges RN Repositioned Turns self 10/31/2024 8:30 AM EDT Jami Bridges RN Head of Bed Elevated Self regulated 10/31/2024 8:30 AM EDT Jami Bridges RN Heels/Feet Heels elevated off bed;Foot of bed elevated 10/31/2024 8:30 AM EDT Jami Bridges RN Range of Motion Active;All extremities 8:30 AM EDT Jami Bridges RN Anti-Embolism Devices Bilateral;Sequenti al compression devices, below knee 10/31/2024 8:30 AM EDT Jami Bridges RN Anti-Embolism Intervention Off 10/31/2024 8:30 AM EDT Jami Bridges RN Patient's mobility zone Zone 5 10/31/19 8:10 PM EDT Fern Pierce RN Positioning Frequency Able to turn self 11/01/19 8:30 AM EDT Jami Bridges RN * Hygiene Question Answer Date of Assessment Author Is Patient Total Care? No 10/30/2024 8:10 PM EDT Fern Pierce RN Incontinence Protective Devices Protective pad 10/30/2024 8:10 PM EDT Fern Pierce R N * Precautions Question Answer Date of Assessment Author Precautions Bleeding 10/31/2024 8:30 AM EDT Jami West RN * ADL Screening Question Answer Date of Assessment Author Do you snore or wake up gasp ing for air? No 10/30/2024 7:51 PM JUNT Maribel Merchant R N Can you bring in your CPAP/BiPAP from home? N/A 10/30/2024 7:51 PM JNUT Maribel Merchant RN Patient's Vision Adequate to Safely Complete Daily Activities Yes 10/30/2024 7:51 PM JUNT Maribel Merchant R N Patient's Judgment Adequate to Safely Complete Daily Activities Yes 10/30/2024 7:51 PM Maribel Cheng R N Patient's Memory Adequate to Safely Complete Daily Activities Yes 10/30/2024 7:51 PM Maribel Cheng R N Patient Able to Express Needs/Desires Yes 10/30/2024 7:51 PM Maribel Cheng R N Dressing Independent 10/30/2024 7:51 PM Maribel Cheng RN Grooming Independent 10/30/2024 7:51 PM JUNT Maribel Merchant RN Feeding Independent 10/30/2024 7:51 PM Maribel Cheng RN Bathing Independent 10/30/2024 7:51 PM Maribel Cheng RN Toileting Independent 10/30/2024 7:51 PM Maribel Cheng RN In/Out Bed Independent 10/30/2024 7:51 PM Maribel Cheng RN Walks in Home Independent 10/30/2024 7:51 PM Maribel Cheng RN Weakness of Legs None 10/30/2024 7:51 PM Maribel Carranza RN Weakness of Arms/Hands None 10/30/2024 7:51 PM Maribel Cheng RN Hearing - Right Ear Functional 10/30/2024 7:51 PM Maribel Arce RN Hearing - Left Ear Functional 10/30/2024 7:51 PM Maribel Cheng RN Which is your dominant hand? Right 10/30/2024 7 :51 PM Maribel Cheng RN * Consults Question [...] PT Evaluation Needed 2 10/30/2024 7:51 PM Maribel Andrews RN OT Evaluation Needed 2 10/30/2024 7:51 PM Maribel Andrews RN MICROFILMING DOCUMENT PREPARER Evaluation Needed 2 10/30/2024 7:51 PM Maribel Cheng RN * Assistive Devices Question Answer Date of Assessment Author Assistive Devices Eyeglasses 10/30/2024 7:51 PM Maribel Cheng RN * Provider Notification Question Answer Date of Assessment Author Provider Role Nurse Practitioner 10/30/2024 8:10 PM ED Fern Berrios, RN Provider Name Lesli Luna 10/30/2024 8:10 PM EDFern Schneider, RN Method of Communication [facility] 10/30/2024 8:10 P M EDT Fern Pierce RN Reason for Communication Critical lab value 10/30/2024 8:10 PM EDT Fern Pierce, DEE Response No new orders 10/30/2024 8:10 PM EDT Fern Terry RN Notification Time [id number] 10/30/2024 8:10 PM EDT Fern Pierce RN * Centerpoint Fall Risk Interventions Question Answer Date of Assessment Author Centerpoint Fall Risk Interventions Complete 025 8:30 AM EDT Jami Bridges RN * Suicidal Ideation Question Answer Date of Assessment Author 1. Wish to be (Lifetime) No 10/30/2024 7:54 PM EDT Maribel Merchant RN 2. Non-Specific Active Suici martha Thoughts (Lifetime) No 10/30/2024 7:54 PM EDT Maribel Merchant, R N * Question Answer Date of Assessment Author BP 112/81 10/31/2024 12:00 PM EDT Jami Currie RN Temp 97.7 10/31/2024 12:00 PM EDT Jami Currie RN Temp src Temporal 10/31/2024 12:00 PM EDT Jami Currie RN Pulse 81 10/31/2024 12:00 PM EDT Jami Currie RN Resp 14 10/31/2024 12:00 PM EDT Jami Currie RN Heart Rate Source Monitor 10/31/2024 12:00 PM EDT Jami Bridges RN BP Location Left arm 10/31/2024 12:00 PM EDT Jami Currie RN BP Method Automatic 10/31/2024 12:00 PM EDT Jami Currie RN Patient Position Lying 10/31/2024 12:00 PM EDT Jami Bridges RN * Is this patient currently opioid tolerant (receiving at least 60 mg morphine equivalent per day (MME/day) for past 7 days or longer)? Answer Date of Assessment Author Opioid Tolerant 10/31/2024 11:08 AM EDT Ky Ritter MD * Pain Assessment Question Answer Date of Assessment Author Pain Location Chest 10/30/2024 8:10 PM EDT Fern Terry RN Pain Orientation Left 10/30/2024 8:10 PM EDT Fern Quinn RN Pain Interventions Medication (See MAR) 10/30/2024 8:1 0 PM EDT Fern Pierce RN Pain Onset Ongoing 10/30/2024 8:10 PM EDT Fern Horn RN Response to Interventions improved 10/31/2024 6:33 AM EDT Fern Pierce RN Clinical Progression Not changed 10/31/2024 10:31 AM EDT Jami Bridges RN Pain Assessment No/denies pain 10/31/2024 10:31 AM EDT Jami Bridges RN * Nutrition Question Answer Date of Assessment Author Diet Type Regular 10/31/2024 8:30 AM JUNT Jami West RN Feeding Able to feed self 10/31/2024 8:30 AM EDT Jami Bridges RN Appetite Good 10/30/2024 8:10 PM EDT Fern Horn RN * Integumentary Question Answer Date of Assessment Author Skin Color Appropriate for race 10/31/2024 8:30 AM E Jami Pak RN Skin Condition/Temp Warm;Dry 10/31/2024 8:30 AM ED Jami Saenz RN Skin Integrity Other (Comment) 10/31/2024 8:30 AM EDT Jami Bridges RN Skin Turgor Non-tenting 10/31/2024 8:30 AM EDT Jami West RN Integumentary Additional Assessments Tattoos 10/30/2024 6:32 PM EDT Stacie Keyes RN Integumentary (WDL) X 10/31/2024 8:30 AM ED Jami Saenz RN Does patient have tattoos? Yes 10/30/2024 6:32 PM EDT Stacie Keyes RN * Pain Score Answer Date of Assessment Author 8 10/31/2024 12:36 PM EDT Jami Bridges RN * Audit Alcohol Screening Question Answer [...] on one occasion? 0 10/30/2024 7:53 PM Jalil Cheng RN Audit-C Score 0 10/30/2024 7:53 PM Maribel Cheng RN * Drug Screening Question Answer Date of Assessment Author Have you used any substances (canabis, cocaine, heroin, hallucinogens, inhalants, etc.) in the past 12 months? No 10/30/2024 7:53 PM Maribel Cheng R N Have you used any prescripti on drugs other than prescribed in the past 12 months? No 10/30/2024 7:53 PM Maribel Cheng R N * Modified Malnutrition Screening Tool (MST) Question Answer Date of Assessment Author Have you recently lost weigh t without trying? 0 10/30/2024 7:54 PM Maribel Cheng R N Have you been eating poorly because of a decreased appetite? 0 10/30/2024 7:54 PM Asad Cheng RN On home tube feeding or TPN? 0 10/30/2024 7 :54 PM Maribel Cheng RN Does patient have a stage 2- 4 pressure ulcer? 0 10/30/2024 7:54 PM Maribel Cheng RN * Weight Loss Score Answer Date of Assessment Author 0 10/30/2024 7:54 PM Mireya Cheng RN * Malnutrition Score Answer Date of Assessment Author 0 10/30/2024 7:54 PM Mireya Cheng RN documented as of this encounter Discharge [...] She presented as a direct admission from [facility] on 10/30/2024 with severe, sharp, left-sided chest pain radiating to the left arm, associated with dizziness, shortness of breath, nausea, and vomiting following her daily infusion therapy. At [facility], troponin was 390 and chest X-ray showed mild fluid overload. She was started on heparin infusion and transferred for higher level of care. On arrival to [facility], troponin was 337, hemoglobin 9.7, BNP 77, [...] and recurrent obstruction Follow-up / Referrals: Cardiology: [facility], scheduled 11/14/2024 Urology: For Costello management [...] evaluation. Attend scheduled cardiology follow-up on 11/14/2024. Kenisha Alas MD, Juan is advised to follow up with you within 1-2 weeks. Items to follow up in ambulatory setting: None Follow-up with: Cardiology Scheduled appointments: Future Appointments Date Time Provider Department Center 11/14/2024 3:25 PM Christina Rodriguez CNP [facility] 11/20/2024 2:30 PM Delphine Du NP [facility] [place] [facility] 11/27/2024 2:15 PM Santa Wall CNP [facility] [place] 12/04/2024 10:00 AM Katie Altamirano MD [facility] Your medication list START taking these medications [...] as: Tylenol ALBUTEROL INHL ergocalciferol 1.25 MG (58682 Units) capsule Commonly known as: Vitamin D-2 escitalopram 20 mg tablet Commonly known as: Lexapro fentaNYL 25 mcg/hr Commonly known as: Duragesic fentaNYL 12 mcg/hr Commonly known as: Duragesic HYDROcodone-acetaminophen 5-325 mg tablet Commonly known as: Finley hydrocortisone 10 mg tablet Commonly known as: [...] Medications These medications were sent to [facility] - [address] [place] [address] [address] [facility] [place] [address], [facility] [address] aspirin 81 mg chewable tablet atorvastatin 80 mg tablet clopidogrel 75 mg tablet metoclopramide 10 mg tablet metoprolol succinate XL 25 mg 24 hr tablet [place] is allergic to codeine, nsaids (non-steroidal anti-inflammatory drug), and adhesive. Disposition: Home-Health Care [facility] (06) Discharge Condition: Stable Code Status: Full [...] was 43 minutes. Signed Mauricio Garcia MD [facility] 11/07/2024 2:48 PM CC: MD Evette [...] cholesterol);PO diet regular as tolerated. Intakes variable. [place], small meals. ONS. Dietary nutrition supplements BID (breakfast & dinner); Boost Glucose Control; Chocolate; 8 oz;Oral Dietary nutrition supplements Lunch; Gelatein; [place]; 4 oz; Oral [id number] only Adult Cyclic 3-in-1 TPN: 2,300 mL, [...] Contact Info) Description 11/06/2024 10:30 AM EDT [facility] Center Hematology/Oncology [address] [place] [address] [place] [address] Hodges dressing and cap change;Labs as needed per patient 11/10/2024 2:15 PM EDT Appointment [facility] Endoscopy - ENDO [address] [place] [address] [place] [address] [address] [place] [id number] EGD and tube exchange failure to thrive nausea and vomiting 11/13/2024 10:45 AM EDT Infusion Center Hematology/Oncology [address] [place] [address] [place] [address] Hodges dressing and cap change;Labs as needed per patient 11/20/2024 9:15 AM EDT Infusion Center Hematology/Oncology [address] [place] [address] [place] [address] Hodges dressing and cap change;Labs as needed per patient 11/27/2024 9:00 AM EDT Infusion Center Hematology/Oncology [address] [place] [address] [place] [address] Hodges dressing and cap change;Labs as needed per patient 11/30/2024 8:30 AM EDT [facility] Gastroenterology [address] [place] [id number] Georgina Barkley MD [facility] [address] [place], [place] [id number] HPN / VIRTUAL 12/04/2024 9:15 AM EDT Infusion Center Hematology/Oncology [address] [place] [address] [place] [address] Hodges dressing and cap change;Labs as needed [...] Everywhere. * Indwelling Urinary Catheter Care Adult Hfav-la-Uyri (Urdu) documented in this encounter Medications at Time [...] 11/07/2024 5 ergocalciferol (Vitamin D-2) 1.25 MG (28216 Units) capsule Take 50,000 Units by mouth 1 (one) time per week. 5 fentaNYL (Duragesic) 12 mcg/hr Place 1 patch on the skin every 3rd (third) day. Takes 12 mcg and 25 mcg together every 3 days 5 HYDROcodone-acet aminophen (Finley) 5-325 mg tablet Take 2 tablets by mouth every 4 (four) hours if needed for moderate-severe pain (4-10 pain score). 5 documented as of this encounter Progress Notes * Deepika Diallo - 11/07/2024 2:20 PM EDT discharge planning: to Home with [address] [facility] Patient came to this admission from their private residence in the community; they are reported to be managing their own TPN needs at home, with supplies being provided through [facility]. 1345 - Patient is discharging with a Costello, which is new this admission; Patient agreeable to [facility], no preference of provider, agreeable to mass referral - [facility] referral sent; awaiting replies [address] only accepting [facility] provider; added them to AVS 1512 AVS sent to [address], via [employer] system 1613 Patient had costello removed, still appropriate to have [facility] nursing; updated AVS sent to [address], [employer] system * Christina Rodriguez, HYDRO EXCAVATION OPERATOR - 11/07/2024 12:56 PM EDT Images from [...] to 0 out of 10. Groin is drip box tender after surgery, and GONSALO drain with little [...] who came as a direct admission from [facility] due to chest pain. Patient states that [...] ??F) Temporal 79 13 96 % -- 11/06/24 2147 117/51 -- -- -- -- -- -- [...] Value Ventricular Rate [address] Interval 134 QRS DURATION 88 QT Interval 386 QTC CALCULATION(BAZETT) 474 P [place] 63 R-[place] 35 T Wave [place] 46 Impression Sinus rhythm with Premature supraventricular complexes Otherwise normal ECG When compared with ECG of 04-NOV-2024 13:40, Premature supraventricular complexes are now Present No results found for: CKTOTAL , CKMB , CKMBINDEX , TROPONINI Limited Echo (TTE) w/wo Limited Doppler, Color Flow, Imaging Agent, Strain, 3D, Bubble Study Result Date: 10/31/2024 1 1 [place] [facility] Heart Station [address] [place] [address] [phone] (fax) Echocardiogram-[facility] Name: JUAN KONG Study Date: 10/31/2024 11:16 AM B/P: 106 mmHg/67 mmHg HR: 70 bpm Date of : 1990 [facility] Age: 34 year(s) Patient Room: [...] minimal pericardial effusion. Procedure Staff Reading Group: [facility] Director Of Agriculture: Raegan Cardona BS, RDCS Ordering Physician: [place] [...] for pt to see us in our [facility] on 11/14/24. Rest of care per [...] McQuillin, PA-C, 650 mg at 11/05/24 1633 Adult Cyclic [...] 30 mg, 30 mg, subcutaneous, BID, Sid McQuillin, PA-C, 30 mg at 11/07/24 0855 escitalopram (Lexapro) tablet 20 mg, 20 mg, oral, Daily, Rosa Willoughby PA-C, 20 mg at 11/07/24 0900 fentaNYL (Duragesic) 12 mcg/hr 1 patch, 1 patch, transdermal, q72h, 1 patch at 11/05/24 1739 AND fentaNYL (Duragesic) 25 mcg/hr 1 patch, 1 patch, transdermal, q72h, Timothy Dee MD, 1 patch at 11/05/24 1739 HYDROcodone-acetaminophen (Finley) 5-325 mg per tablet 1 tablet, 1 tablet, oral, q4h PRN, 1 tablet at 11/03/24 1011 OR HYDROcodone-acetaminophen (Finley) 5- 325 mg per tablet 2 tablet, 2 tablet, oral, q4h PRN, Ky Ritter MD, 2 tablet at 11/07/24 0909 hydrocortisone (Cortef) tablet 10 mg, 10 mg, oral, Daily, Debbie Luna HYDRO EXCAVATION OPERATOR, 10 mg at 11/07/24 0855 hydrOXYzine pamoate (Vistaril) capsule 50 mg, 50 mg, oral, Nightly PRN, Debbie Luna, HYDRO EXCAVATION OPERATOR insulin lispro (HumaLOG) injection 0-5 Units, 0-5 [...] 5 mg, oral, Nightly PRN, Debbie Luna, HYDRO EXCAVATION OPERATOR methocarbamol (Robaxin) tablet 750 mg, 750 mg, [...] Rosa Willoughby PA-C, 45 mg at 11/06/24 2106 naloxone (Narcan) injection 0.1 mg, 0.1 mg, [...] Dunn MD - 11/07/2024 6:36 AM EDT [facility] Vascular Surgery DAILY PROGRESS NOTE Subjective [...] on TPN presents a direct admission from [facility] with chief complaint of chest pain. She [...] infiltrated over the right femoral artery. A 5-Afghan Terumo sheath was placed in right femoral [...] was maintained at >250 seconds. A 5 Afghan Cordis XB 3.0 guide was engaged to the left main. I decided to proceed with IVUS. I then advanced a Runthrough wire to the distal left anterior descending. Next, I advanced a Endomondo IVUS catheter. IVUS imaging was performed and [...] infiltrated over the right femoral artery. A 6-Afghan sheath was placed in right femoral artery. Coronary angiography was performed with a JL4 and then repeated after IC nitroglycerin 50 mcg x 2. At this time, it was apparent that the LAD had a moderate stenosis and IVUS and iFR were performed. Heparin anticoagulation was used for this procedure. ACT was maintained at >250 seconds. A 6 Afghan xb3 was engaged to the [place]. I [...] 1800, M-F. For urgent concerns, please call [phone], or ask the brine process operator to connect you to the on-crew caller. For after-hours concerns, please page [phone], or ask the brine process operator to connect you to the on-crew caller. Cosigned by Dominic Chappell DO at 11/07/2024 [...] Level of Function Prior Function Level of [place]: Independent with ADLs and functional transfers, Independent [...] the chair for support without cues from internal communications writer. Ambulation Ambulation: Yes Ambulation 1 Surface [...] Problem List Diagnosis Bacteremia Hypothyroidism Morbid obesity ([facility]) GERD (gastroesophageal reflux disease) Sepsis due to Klebsiella ([facility]) Sepsis due to Enterococcus ([facility]) Gastroparesis Chronic pain syndrome MALT (mucosa associated lymphoid tissue) History of adrenal insufficiency Acquired hypothyroidism Chest pain Type 2 diabetes mellitus without complication, without long-term current use of insulin ([facility]) Primary hypertension Other hyperlipidemia Asthma IBS (irritable [...] 105 CO2 27 Alk Phos 45, AST/ALT 19/7, Tbili 0.2 (10/30/24) TG 84 (10/31/24) Manganese 5.2, Copper 107, Zinc 55 (10/09/24) Vit D 25.8 (08/15/24) Allergies: Allergies[1] Nutrition Problems: Swallowing Assessment: pt denies swallowing difficulty Mouth: pt denies chewing difficulty Abdominal Assessment: Last BM 11/02/24, kadie colace prn given 0933 h/o IBS, 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 No routine or PRN bowel [...] PO diet regular as tolerated. Intakes variable. [place], small meals. ONS. Dextrose 200 g AA [...] Once Comments: Please send Old Fashioned Hot [place] Nancy entree, with a side of green beans; a side salad with mozzarella cheese, croutons, and Ranch dressing, and a Sprite. Thank you! 11/03/24 1337 11/03/24 0827 Special Kitchen Request Once Comments: Please send oatmeal with brown sugar, Rice Krispies with milk, and coffee with cream and sugar. Thank you! 11/03/24 0852 11/02/24 2236 Regular Diet Heart Healthy/HTN, CABG,Stroke, (2gNA, low fat, low cholesterol) Diet effective now Question Answer Comment Room Service? Yes Fat restriction: Heart Healthy/HTN, CABG,Stroke, (2gNA, low fat, low cholesterol) 11/02/24223411/01/24 1519 Dietary nutrition supplements Lunch; Gelatein; [place]; 4 oz; Oral Until discontinued Comments: When diet advances Question Answer Comment Deliver with Lunch Select supplement: Gelatein Flavor [place] Strength: 4 oz Route Oral 11/01/24 1519 [...] ideal body weight (59.3 kg) Calorie needs: 8806-4831 kcals/day based on 25-30 kcal/kg Protein needs: [...] of Nutrition and Dietetics (AND) and the [place] Society of Enteral and Parenteral Nutrition (ASPEN). Treatment Plan: HPN schedule (MWF) Minor adjustments made based on current labs with plan to titrate to home order. Na Phos 30->20 mmol Continue current diet, snacks & ONS Goals: Advance TF to goal rate Weight maintenance Maintain visceral protein Nutrition-related labs (magnesium, phosphorus, BMP) wnl To reach the Clinical Dietitian, please utilize Hypecal chat Wednesday-Wednesday from 8AM-4PM or call extension [phone]. For weekends (Wednesday-Wednesday) and holidays, the Clinical Dietitian can be reached via pager [phone]) from 9AM-3PM. The Clinical Nutrition Department is unable to respond to Hypecal chat messages on Sundays and s. [1] Allergies Allergen Reactions Codeine Nausea And Vomiting Nsaids (Non-Steroidal Anti-Inflammatory Drug) GI intolerance Adhesive Rash * Eduarda Bravo PA-C - 11/06/2024 9:03 AM EDT Images from the original note were not included. [facility] Surgical Intensive Care Unit Progress Note [...] Value Ventricular Rate [address] Interval 138 QRS DURATION 84 QT Interval 454 QTC CALCULATION(BAZETT) 503 P [place] 54 R-[place] 41 T Wave [place] 77 Impression Normal sinus rhythm T abnormalities consider high lateral ischemia Mild ST elevation in V2 and V3 , consider acute septal injury Abnormal ECG Confirmed by Griffin Diaz ([id number]) on 11/02/2024 10:58:13 PM Assessment TThe patient is a 34 y.o. female who presented with an NSTEMI, was taken to the biology laboratory assistant x2 and hasa an expanding right groin [...] (placed patch every 72hours). Resume home PRN Finley 5-325 Q4H, PRN 650 mg Q8H -On [...] to 0 out of 10. Groin is drip box tender after surgery, and GONSALO drain with little [...] who came as a direct admission from [facility] due to chest pain. Patient states that [...] -- -- 64 (!) 7 97 % 11/05/24 2100 (!) 101/47 -- -- 66 (!) 8 97 % 11/05/24 2014 105/58 -- -- 78 18 99 % [...] Value Ventricular Rate [address] Interval 132 QRS DURATION 94 QT Interval 382 QTC CALCULATION(BAZETT) 492 P [place] 60 R-[place] 34 T Wave [place] 58 Impression Normal sinus rhythm Statement not found (1146) Abnormal ECG When compared with ECG of 02-NOV-2024 13:02, No significant change was found Confirmed by Erlin Geller (80) on 11/05/2024 12:04:52 AM No results found for: CKTOTAL , CKMB , CKMBINDEX , TROPONINI Limited Echo (TTE) w/wo Limited Doppler, Color Flow, Imaging Agent, Strain, 3D, Bubble Study Result Date: 10/31/2024 1 1 [facility] Heart Station [address] [place] [address] [phone] (fax) Echocardiogram-[facility] Name: JUAN KONG Study Date: 10/31/2024 11:16 AM B/P: 106 mmHg/67 mmHg HR: 70 bpm Date of : 1990 [facility] Age: 34 year(s) Patient Room: [...] minimal pericardial effusion. Procedure Staff Reading Group: [facility] Director Of Agriculture: DAVID Kearney, RDCS Ordering Physician: [place] RITTER [...] Pena DO Internal Medicine Resident, PGY-2 [facility] 8:20 AM 11/06/24 [1] Current Facility-Administered Medications: acetaminophen (Tylenol) tablet 650 mg, 650 mg, oral, q8h PRN, Sid McQuillin, PA-C, 650 mg at 11/05/24 1633 albuterol 90 mcg/actuation inhaler 2 puff, 2 puff, inhalation, q6h PRN, Debbie Luna, HYDRO EXCAVATION OPERATOR aspirin EC tablet 81 mg, 81 mg, oral, Daily, Sid McQuillin, PA-C, 81 mg at 11/05/24 1021 atorvastatin (Lipitor) tablet 80 mg, 80 mg, oral, Nightly, Rosa Willoughby PA-C, 80 mg at 11/05/24 2336 clopidogrel (Plavix) tablet 75 mg, 75 mg, oral, Daily, Sid McQuillin, PA-C, 75 mg at 11/05/24 1021 glucose chewable tablet 24 g, 24 g, oral, q15 min PRN OR dextrose 50 % in water (D50W) syringe 25 g, 25 g, intravenous, q15 min PRN, Debbie Luna HYDRO EXCAVATION OPERATOR, 25 g at 10/31/24 1228 diphenhydrAMINE (BENADryl) injection 12.5 mg, 12.5 mg, intravenous, q6h PRN, Ky Ritter MD, 12.5 mg at 11/06/24 0550 enoxaparin (Lovenox) syringe 30 mg, 30 mg, subcutaneous, BID, Sid Cruz, PA-C, 30 mg at 11/05/24 2336 escitalopram (Lexapro) [...] Dee MD, 25mcg at 11/06/24 0700 HYDROcodone-acetaminophen (Finley) 5-325 mg per tablet 1 tablet, 1 tablet, oral, q4h PRN, 1 tablet at 11/03/24 1011 OR HYDROcodone-acetaminophen (Finley) 5- 325 mg per tablet 2 tablet, [...] 5 mg, oral, Nightly PRN, Debbie Luna, HYDRO EXCAVATION OPERATOR methocarbamol (Robaxin) tablet 750 mg, 750 mg, [...] 20 mEq, 20 mEq, oral, q1h PRN, oRsa Willoughby PA-C prochlorperazine (Compazine) injection 10 mg, [...] 10 mL, intravenous, q8h PRN, Debbie Pirkl, HYDRO EXCAVATION OPERATOR sucralfate (Carafate) tablet 1 g, 1 g, oral, Before meals & nightly, Rosa Willoughby PA-C, 1 g at 11/05/242105 topiramate (Topamax) tablet 100 mg, 100 mg, oral, BID, Rosa Willoughby PA-C, 100 mg at 11/05/24 233 traZODone (Desyrel) tablet 100 mg, 100 mg, oral, Nightly, Rosa Willoughby PA-C, 100 mg at 11/05/24 2335 trimethobenzamide (Tigan) injection 200 mg, 200 mg, intramuscular, q6h PRN, Debbie Luna, HYDRO EXCAVATION OPERATOR, 200 mg at 11/03/24 0018 verapamil (Calan) [...] combination Sebastian Peña MD, ScM, MSc Cardiac Biofuels Production Technician Email: [email or web address] * Anna Etienne MD - 11/06/2024 7:38 AM EDT Images from the original note were not included. [facility] Vascular Surgery DAILY PROGRESS NOTE Subjective [...] MD General Surgery PGY-4 For non-urgent questions, [place] [employer] Chat may be used 0600 - 1800, M-F. For urgent concerns, please call [phone], or ask the brine process operator to connect you to the on-crew caller. For after-hours concerns, please page [phone], or ask the brine process operator to connect you to the on-crew caller. Cosigned by Dominic Chappell DO at 11/06/2024 1:53 PM EDT * Mikayla Jennings PA-C - 11/05/2024 2:14 PM EDT Images from the original note were not included. [facility] Vascular Surgery DAILY PROGRESS NOTE Subjective [...] Results from last 7 days Lab Units 11/05/248 11/04/24201611/04/24 1338 11/04/24 0505 11/03/24 0446 SODIUM mmol/L [...] per primary Will continue to follow Mikayla Jennings, GABRIELLA Vasular Surgery and Wound Care x [phone] For non-urgent questions, Epic Chat may be used 0600 - 1800, M-F. For urgent concerns, please call [phone], or ask the brine process operator to connect you to the on-crew caller. For after-hours concerns, please page [phone], or ask the brine process operator to connect you to the on-crew caller. * Christina Rodriguez CNP - 11/05/2024 11:00 [...] to 0 out of 10. Groin is drip box tender after surgery, and GONSALO drain with little [...] who came as a direct admission from [facility] due to chest pain. Patient states that [...] Value Ventricular Rate [address] Interval 132 QRS DURATION 94 QT Interval 382 QTC CALCULATION(BAZETT) 492 P [place] 60 R-[place] 34 T Wave [place] 58 Impression Normal sinus rhythm Statement not found (1146) Abnormal ECG When compared with ECG of 02-NOV-2024 13:02, No significant change was found Confirmed by Erlin Geller (80) on 11/05/2024 12:04:52 AM No results found for: CKTOTAL , CKMB , CKMBINDEX , TROPONINI Limited Echo (TTE) w/wo Limited Doppler, Color Flow, Imaging Agent, Strain, 3D, Bubble Study Result Date: 10/31/2024 1 1 [facility] Heart Station [address] [place] [address] [phone] (fax) Echocardiogram-[facility] Name: JUAN KONG Study Date: 10/31/2024 11:16 AM B/P: 106 mmHg/67 mmHg HR: 70 bpm Date of : 1990 [facility] Age: 34 year(s) Patient Room: [...] minimal pericardial effusion. Procedure Staff Reading Group: [facility] Director Of Agriculture: DAVID Kearney, RDCS Ordering Physician: [place] RITTER [...] along Discussed plan with pt, primary RN, fibrous wallboard inspector Dr. Alejandro and senior oracle dba Dr. Altamirano. Christina Rodriguez, [facility] Cardiovascular Medicine [1] Current Facility-Administered Medications: acetaminophen [...] Daily, Sid McQuillin, PA-C, 81 mg at 11/05/24 1021 atorvastatin (Lipitor) tablet 80 mg, 80 mg, oral, Nightly, Rosa Willoughby, PA-C, 80 mg at 11/04/24 2244 clopidogrel (Plavix) tablet 75 mg, 75 mg, oral, Daily, Sid McQuillin, PA-C, 75 mg at 11/05/24 1021 glucose [...] 30 mg, 30 mg, subcutaneous, BID, Sid Cruz, PA-C, 30 mg at 11/05/24 1021 escitalopram (Lexapro) tablet 20 mg, 20 mg, oral, Daily, Rosa Willoughby PA-C, 20 mg at 11/05/24 1021 fentaNYL (Duragesic) 25 mcg/hr 1 patch, 1 patch, transdermal, q72h, Rosa Willoughby PA-C, 1 patch at 11/03/24 1128 fentaNYL (Sublimaze) injection 25 mcg, 25 mcg, intravenous, q2h PRN, Timothy Dee MD, 25mcg at 11/05/24 1446 HYDROcodone-acetaminophen (Finley) 5-325 mg per tablet 1 tablet, 1 tablet, oral, q4h PRN, 1 tablet at 11/03/24 1011 OR HYDROcodone-acetaminophen (Finley) 5- 325 mg per tablet 2 tablet, [...] 5 mg, oral, Nightly PRN, Debbie Luna, HYDRO EXCAVATION OPERATOR methocarbamol (Robaxin) tablet 750 mg, 750 mg, oral, 4x daily, Rosa Willoughby PA-C, 750 mg at 11/05/24 1356 metoclopramide (Reglan) tablet 10 mg, 10 mg, oral, Daily PRN, Debbie Luna CNP, 10 mg at 11/04/24 1302 metoprolol succinate [...] mEq, 10 mEq, intravenous, q1h PRN, HENNY Hendrickson-C potassium chloride IVPB 10 mEq, 10 mEq, intravenous, q1h PRN, HENNY Hendrickson-C potassium chloride IVPB 10 mEq, 10 mEq, [...] from the original note were not included. [facility] Vascular Surgery DAILY PROGRESS NOTE Subjective [...] infiltrated over the right femoral artery. A 6-Afghan sheath was placed in right femoral artery. Coronary angiography was performed with a JL4 and then repeated after IC nitroglycerin 50 mcg x 2. At this time, it was apparent that the LAD had a moderate stenosis and IVUS and iFR were performed. Heparin anticoagulation was used for this procedure. ACT was maintained at >250 seconds. A 6 Afghan xb3 was engaged to the [place]. I [...] informed consent. she was brought to the biology laboratory assistant in a fasting state. The left wrist area was prepped and draped in usual fashion. Micropuncture technique was used for access in the radial artery. A 5-Afghan x 11 cm sheath was placed. Verapamil was given through the sheath, and heparin was administered intravenously. A 5 Afghan JR4 diagnostic catheter was advanced and this [...] catheter was then downsized to a 4 Afghan JR4 diagnostic catheter however this also was not able to engage the right coronary artery. Catheter was exchanged to a JR4 diagnostic catheter which could not engage the left coronary artery. Catheter was exchanged to a 4 Afghan JL 3.5 diagnostic catheter which eventually was able to engage the left coronary artery. Angiography was performed in multiple views. Catheter was exchanged over the wire to a 4 Afghan 3DRC catheter. Multiple attempts were made to [...] Wound Care x 2513 For non-urgent questions, [place] [employer] Bear Chat may be used 0600 - 1800, M-F. For urgent concerns, please call [phone], or ask the brine process operator to connect you to the on-crew caller. For after-hours concerns, please page [phone], or ask the brine process operator to connect you to the on-crew caller. * Marie Alejandro MD - 11/04/2024 8:53 [...] to 0 out of 10. Groin is drip box tender after surgery, and GONSALO drain with little [...] who came as a direct admission from [facility] due to chest pain. Patient states that [...] Value Ventricular Rate [address] Interval 138 QRS DURATION 84 QT Interval 454 QTC CALCULATION(BAZETT) 503 P [place] 54 R-[place] 41 T Wave [place] 77 Impression Normal sinus rhythm T abnormalities [...] Bubble Study Result Date: 10/31/2024 1 1 [facility] Heart Station [address] [place] [address] [phone] (fax) Echocardiogram-[facility] Name: JUAN KONG Study Date: 10/31/2024 11:16 AM B/P: 106 mmHg/67 mmHg HR: 70 bpm Date of : 1990 [facility] Age: 34 year(s) Patient Room: [...] minimal pericardial effusion. Procedure Staff Reading Group: [facility] Director Of Agriculture: DAVID Kearney, RDCS Ordering Physician: [place] RITTER [...] infiltrated over the right femoral artery. A 6-Afghan sheath was placed in right femoral artery. Coronary angiography was performed with a JL4 and then repeated after IC nitroglycerin 50 mcg x 2. At this time, it was apparent that the LAD had a moderate stenosis and IVUS and iFR were performed. Heparin anticoagulation was used for this procedure. ACT was maintained at >250 seconds. A 6 Afghan xb3 was engaged to the [place]. I [...] informed consent. she was brought to the biology laboratory assistant in a fasting state. The left wrist area was prepped and draped in usual fashion. Micropuncture technique was used for access in the radial artery. A 5-Afghan x 11 cm sheath was placed. Verapamil was given through the sheath, and heparin was administered intravenously. A 5 Afghan JR4 diagnostic catheter was advanced and this [...] catheter was then downsized to a 4 Afghan JR4 diagnostic catheter however this also was not able to engage the right coronary artery. Catheter was exchanged to a JR4 diagnostic catheter which could not engage the left coronary artery. Catheter was exchanged to a 4 Afghan JL 3.5 diagnostic catheter which eventually was able to engage the left coronary artery. Angiography was performed in multiple views. Catheter was exchanged over the wire to a 4 Afghan 3DRC catheter. Multiple attempts were made to [...] least in part, completed using a voice crab fisher system. Every effort was made to ensure accuracy. However, inadvertent computerized crab fisher errors may be present. Lisa Pena DO Internal Medicine Resident, PGY-2 [facility] 8:53 AM 11/04/24 Addendum Pt was reported to have chest pain and diaphoresis. EKG unremarkable, in fact st elevations are no longer present. Will add verapamil and recommended blood transfusions given hemoglobin < 8 Marie Alejandro MD PGY-6 Table Games Supervisor [facility] Pager # [phone] [1] Current Facility-Administered Medications: acetaminophen (Tylenol) tablet 650 mg, 650 mg, oral, q8h PRN, Sid Cruz PA-C Adult Cyclic 3-in-1 TPN, 2,300 mL, intravenous, Cyclic TPN, Kaye Rossmoyne, RD, Last Rate: 159 mL/hr at 11/04/24 0552, Rate Verify at 11/04/24 0552 albuterol 90 mcg/actuation inhaler 2 puff, 2 puff, inhalation, q6h PRN, Debbie Luna HYDRO EXCAVATION OPERATOR aspirin EC tablet 81 mg, 81 mg, [...] PA-C, 1 patch at 11/03/24 1128 HYDROcodone-acetaminophen (Finley) 5-325 mg per tablet 1 tablet, 1 tablet, oral, q4h PRN, 1 tablet at 11/03/24 1011 OR HYDROcodone-acetaminophen (Finley) 5- 325 mg per tablet 2 tablet, [...] mEq, 10 mEq, intravenous, q1h PRN, HENNY Hendrickson-C potassium chloride IVPB 10 mEq, 10 mEq, [...] PRN, Rosa Willoughby PA-C, 1 tablet at 09/19/25 2202 sod phos di, mono-K phos mono [...] 10 mL, intravenous, q8h PRN, Debbie Pirkl, HYDRO EXCAVATION OPERATOR sucralfate (Carafate) tablet 1 g, 1 g, oral, Before meals & nightly, Rosa Willoughby PA-C, 1 g at 11/04/24 0512 topiramate (Topamax) tablet 100 mg, 100 mg, oral, BID, Rosa Willoughby PA-C, 100 mg at 11/03/24 2211 traMADol (Ultram) tablet 50 mg, 50 mg, oral, q6h PRN, Debbie Pirkl, HYDRO EXCAVATION OPERATOR, 50 mg at 11/03/24 1633 traZODone (Desyrel) tablet 100 mg, 100 mg, oral, Nightly, Rosa Willoughby PA-C, 100 mg at 11/03/24 2202 trimethobenzamide (Tigan) injection 200 mg, 200 mg, intramuscular, q6h PRN, Debbie Pirkl, HYDRO EXCAVATION OPERATOR, 200 mg at 11/03/24 0018 Cosigned by Salty Hyatt MD at 11/05/2024 5:02 PM EDT Associated attestation - Salty Hyatt MD - 11/05/2024 5:02 PM EDT Agree with the assessment and plan as documented by the fibrous wallboard inspector * Michael Dunn MD - 11/03/2024 6:19 PM EDT Images from the original note were not included. [facility] Vascular Surgery DAILY PROGRESS NOTE Subjective [...] last 7 days Lab Units 11/03/24 0007 10/30/241910 INR 1.17* 1.15* Medications: aspirin, 81 mg, [...] infiltrated over the right femoral artery. A 6-Afghan sheath was placed in right femoral artery. Coronary angiography was performed with a JL4 and then repeated after IC nitroglycerin 50 mcg x 2. At this time, it was apparent that the LAD had a moderate stenosis and IVUS and iFR were performed. Heparin anticoagulation was used for this procedure. ACT was maintained at >250 seconds. A 6 Afghan xb3 was engaged to the [place]. I [...] informed consent. she was brought to the biology laboratory assistant in a fasting state. The left wrist area was prepped and draped in usual fashion. Micropuncture technique was used for access in the radial artery. A 5-Afghan x 11 cm sheath was placed. Verapamil was given through the sheath, and heparin was administered intravenously. A 5 Afghan JR4 diagnostic catheter was advanced and this [...] catheter was then downsized to a 4 Afghan JR4 diagnostic catheter however this also was not able to engage the right coronary artery. Catheter was exchanged to a JR4 diagnostic catheter which could not engage the left coronary artery. Catheter was exchanged to a 4 Afghan JL 3.5 diagnostic catheter which eventually was able to engage the left coronary artery. Angiography was performed in multiple views. Catheter was exchanged over the wire to a 4 Afghan 3DRC catheter. Multiple attempts were made to [...] PGY-1 Vascular Surgery Service For non-urgent questions, [place] [employer] Bear Chat may be used 0600 - 1800, M-F. For urgent concerns, please call [phone], or ask the brine process operator to connect you to the on-crew caller. For after-hours concerns, please page [phone], or ask the brine process operator to connect you to the on-crew caller. Cosigned by Dominic Chappell DO at 11/06/2024 [...] to 0 out of 10. Groin is drip box tender after surgery, and GONSALO drain with little [...] who came as a direct admission from [facility] due to chest pain. Patient states that [...] -- -- 85 19 100 % -- 11/02/245 100/74 -- -- 87 23 -- -- 11/02/241841 104/63 -- -- 88 (!) 9 100 % -- 11/02/241839 92/59 -- -- 83 15 100 % -- 11/02/241829 103/56 -- -- 90 14 100 % -- 11/02/241814 101/66 -- -- 81 14 100 % -- 11/02/24 1801 100/56 -- -- 82 12 100 % -- 11/02/24 1754 109/69 -- -- 68 12 100 % -- 11/02/24 1751 108/68 -- -- 72 13 98 % -- 11/02/24 1748 105/67 -- -- 68 15 -- -- 11/02/24 1745 106/70 -- -- 66 13 -- -- 11/02/24 1742 115/87 -- -- 71 13 -- -- [...] Value Ventricular Rate [address] Interval 138 QRS DURATION 84 QT Interval 454 QTC CALCULATION(BAZETT) 503 P [place] 54 R-[place] 41 T Wave [place] 77 Impression Normal sinus rhythm T abnormalities [...] Bubble Study Result Date: 10/31/2024 1 1 [facility] Heart Station [address] [place] [address] [phone] (fax) Echocardiogram-[facility] Name: JUAN KONG Study Date: 10/31/2024 11:16 AM B/P: 106 mmHg/67 mmHg HR: 70 bpm Date of : 1990 [facility] Age: 34 year(s) Patient Room: [...] minimal pericardial effusion. Procedure Staff Reading Group: [facility] Director Of Agriculture: Raegan Cardona BS, RDCS Ordering Physician: KY [...] infiltrated over the right femoral artery. A 6-Afghan sheath was placed in right femoral artery. Coronary angiography was performed with a JL4 and then repeated after IC nitroglycerin 50 mcg x 2. At this time, it was apparent that the LAD had a moderate stenosis and IVUS and iFR were performed. Heparin anticoagulation was used for this procedure. ACT was maintained at >250 seconds. A 6 Afghan xb3 was engaged to the [place]. I [...] informed consent. she was brought to the biology laboratory assistant in a fasting state. The left wrist area was prepped and draped in usual fashion. Micropuncture technique was used for access in the radial artery. A 5-Afghan x 11 cm sheath was placed. Verapamil was given through the sheath, and heparin was administered intravenously. A 5 Afghan JR4 diagnostic catheter was advanced and this [...] catheter was then downsized to a 4 Afghan JR4 diagnostic catheter however this also was not able to engage the right coronary artery. Catheter was exchanged to a JR4 diagnostic catheter which could not engage the left coronary artery. Catheter was exchanged to a 4 Afghan JL 3.5 diagnostic catheter which eventually was able to engage the left coronary artery. Angiography was performed in multiple views. Catheter was exchanged over the wire to a 4 Afghan 3DRC catheter. Multiple attempts were made to [...] least in part, completed using a voice crab fisher system. Every effort was made to ensure accuracy. However, inadvertent computerized crab fisher errors may be present. Lisa Pena DO Internal Medicine Resident, PGY-2 [facility] 11:18 AM 11/03/24 [1] Current Facility-Administered Medications: acetaminophen (Tylenol) tablet 650 mg, 650 mg, oral, q8h PRN, HENNY Sanon-[place] Adult Cyclic 3-in-1 TPN, 2,200 mL, intravenous, Cyclic TPN, Kaye Craig, RD albuterol 90 mcg/actuation inhaler 2 puff, [...] patch, transdermal, q72h, Rosa Willoughby PA-C HYDROcodone-acetaminophen (Finley) 5-325 mg per tablet 1 tablet, 1 tablet, oral, q4h PRN, 1 tablet at 11/03/24 1011 OR HYDROcodone-acetaminophen (Finley) 5- 325 mg per tablet 2 tablet, [...] 10 mg, oral, Daily PRN, Debbie Pirkl, HYDRO EXCAVATION OPERATOR, 10 mg at 11/03/24 0840 metoprolol succinate [...] 10 mL, intravenous, q8h PRN, Debbie Pirkl, HYDRO EXCAVATION OPERATOR sucralfate (Carafate) tablet 1 g, 1 g, oral, Before meals & nightly, Rosa Willoughby PA-C, 1 g at 11/03/24 1013 topiramate (Topamax) tablet 100 mg, 100 mg, oral, BID, oRsa Willoughby PA-C, 100 mg at 11/03/24 1013 traMADol (Ultram) tablet 50 mg, 50 mg, oral, q6h PRN, Debbie Pirkl, HYDRO EXCAVATION OPERATOR, 50 mg at 11/03/24 0838 traZODone (Desyrel) tablet 100 mg, 100 mg, oral, Nightly, Rosa Willoughby PA-C trimethobenzamide (Tigan) injection 200 mg, 200 mg, intramuscular, q6h PRN, Debbie Pirkl, HYDRO EXCAVATION OPERATOR, 200 mg at 11/03/24 0018 Cosigned by [...] and coronary intervention Katie Altamirano MD, MPH, [facility], [facility], [facility] Interventional Cardiology Pager Email: [email or web address] * Sid Cruz PA-C - 11/03/2024 8:12 AM EDT Images from the original note were not included. [facility] Surgical Intensive Care Unit Progress Note [...] thrive who presented as a transfer from [facility]. She had an NSTEMI and underwent a [...] Value Ventricular Rate [address] Interval 138 QRS DURATION 84 QT Interval 454 QTC CALCULATION(BAZETT) 503 P [place] 54 R-[place] 41 T Wave [place] 77 Impression Normal sinus rhythm T abnormalities consider high lateral ischemia Mild ST elevation in V2 and V3 , consider acute septal injury Abnormal ECG Confirmed by Griffin Diaz ([id number]) on 11/02/2024 10:58:13 PM Assessment TThe patient is a 34 y.o. female who presented with an NSTEMI, was taken to the biology laboratory assistant x2 and hasa an expanding right groin [...] (placed patch every 72hours). Resume home PRN Finley 5-325 Q4H, PRN 650 mg Q8H -On [...] from the original note were not included. [facility] Daily Progress Note - 11/02/2024 1:27 PM; Room: [address] [place] [address] Admission: 10/30/2024 6:28 PM; Length of stay: 3 days THE HOSPITALIST TEAM PREFERS TO USE Hypecal CHAT FOR NON-URGENT COMMUNICATION 7AM- 7PM. IF I DO NOT RESPOND WITHIN 20 MINUTES OR URGENT MATTERS, PLEASE CALL THROUGH THE ARCADE TECHNICIAN. FROM 7PM-7AM, PLEASE PAGE [phone](COVR). Code Status: Full Code Barriers to Discharge: [...] pain today patient brought urgently back to Offal Worker Prolonged Q-T interval on ECG -QT mildly [...] Lab Units 11/01/24 1010 10/31/24 0627 10/30/24 1911 SODIUM mmol/L 137 140 139 POTASSIUM mmol/L [...] LDL 73 10/31/2024 No results found for: [id number] , IRON , TIBC , C3 , [...] informed consent. she was brought to the biology laboratory assistant in a fasting state. The left wrist area was prepped and draped in usual fashion. Micropuncture technique was used for access in the radial artery. A 5-Afghan x 11 cm sheath was placed. Verapamil was given through the sheath, and heparin was administered intravenously. A 5 Afghan JR4 diagnostic catheter was advanced and this [...] catheter was then downsized to a 4 Afghan JR4 diagnostic catheter however this also was not able to engage the right coronary artery. Catheter was exchanged to a JR4 diagnostic catheter which could not engage the left coronary artery. Catheter was exchanged to a 4 Afghan JL 3.5 diagnostic catheter which eventually was able to engage the left coronary artery. Angiography was performed in multiple views. Catheter was exchanged over the wire to a 4 Afghan 3DRC catheter. Multiple attempts were made to [...] Self Care () Signed Ky Ritter MD [facility] 11/02/2024 1:27 PM * Therese Rojas, BILLET HEADER - 11/02/2024 9:55 AM EDT Discharge Planning Patient is medically ready for discharge. SW received information from [facility] patient was being served through their [facility]. MIRYAM sent referral to them through [facility]. * Lisa Pena DO - 11/02/2024 [...] who came as a direct admission from [facility] due to chest pain. Patient states that [...] -- -- 73 15 95 % -- 11/01/24 2000 (!) 130/92 -- -- 107 23 98 [...] -- 71 -- 100 % -- 11/01/24 165 119/71 -- -- 77 -- 100 % [...] Value Ventricular Rate [address] Interval 132 QRS DURATION 84 QT Interval 444 QTC CALCULATION(BAZETT) 499 P [place] 72 R-[place] 50 T Wave [place] 89 Impression Normal sinus rhythm T cahnges, consider anterior and high lateral ischemia Prolonged QT Abnormal ECG Confirmed by Griffin Diaz (102) on 11/01/2024 11:37:39 PM No results found for: CKTOTAL , CKMB , CKMBINDEX , TROPONINI Limited Echo (TTE) w/wo Limited Doppler, Color Flow, Imaging Agent, Strain, 3D, Bubble Study Result Date: 10/31/2024 1 1 [facility] Heart Station [address] [place] [address] [phone] (fax) Echocardiogram-[facility] Name: JUAN KONG Study Date: 10/31/2024 11:16 AM B/P: 106 mmHg/67 mmHg HR: 70 bpm Date of : 1990 [facility]. Age: 34 year(s) Patient Room: [...] minimal pericardial effusion. Procedure Staff Reading Group: [facility] Director Of Agriculture: DAVID Kearney, RDCS Ordering Physician: [place] RITTER [...] informed consent. she was brought to the biology laboratory assistant in a fasting state. The left wrist area was prepped and draped in usual fashion. Micropuncture technique was used for access in the radial artery. A 5-Afghan x 11 cm sheath was placed. Verapamil was given through the sheath, and heparin was administered intravenously. A 5 Afghan JR4 diagnostic catheter was advanced and this [...] catheter was then downsized to a 4 Afghan JR4 diagnostic catheter however this also was not able to engage the right coronary artery. Catheter was exchanged to a JR4 diagnostic catheter which could not engage the left coronary artery. Catheter was exchanged to a 4 Afghan JL 3.5 diagnostic catheter which eventually was able to engage the left coronary artery. Angiography was performed in multiple views. Catheter was exchanged over the wire to a 4 Afghan 3DRC catheter. Multiple attempts were made to [...] least in part, completed using a voice crab fisher system. Every effort was made to ensure accuracy. However, inadvertent computerized crab fisher errors may be present. Lisa Pena DO Internal Medicine Resident, PGY-2 [facility] 9:08 AM 11/02/24 [1] Current Facility-Administered Medications: acetaminophen (Tylenol) tablet 650 mg, 650 mg, oral, q6h PRN, Debbie Luna CNP Adult Cyclic 3-in-1 TPN, 2,300 mL, intravenous, Cyclic TPN, Kaye FamRossmoyne, RD, Last Rate: 79.8 mL/hrat 11/02/24 0802, [...] tablet 20 mg, 20 mg, oral, Daily, Debbie Luna CNP, 20 mg at 11/02/24 0856 fentaNYL (Duragesic) 25 mcg/hr 1 patch, 1 patch, transdermal, q72h, Ky Ritter MD, 1 patch at10/31/24 1236 heparin (porcine) injection 5,000 Units, 5,000 Units, subcutaneous, q8h TANIA, Janet Soto MD, 5,000 Units at 11/02/24 0556 HYDROcodone-acetaminophen (Finley) 5-325 mg per tablet 1 tablet, 1 tablet, oral, q4h PRN, Debbie Luna CNP, 1 tablet at 11/02/24 0556 hydrocortisone (Cortef) tablet 10 mg, 10 mg, oral, Daily, Debbie Luna CNP, 10 mg at 11/02/24 0856 hydrOXYzine pamoate (Vistaril) capsule 50 mg, 50 mg, oral, Nightly PRN, Debbie Luna CNP insulin lispro (HumaLOG) injection 0-5 Units, 0-5 Units, subcutaneous, TID with meals AND insulin lispro (HumaLOG) injection 0-4 Units, 0-4 Units, subcutaneous, Nightly, Debbie Luna, HYDRO EXCAVATION OPERATOR levothyroxine (Synthroid, Levoxyl) tablet 75 mcg, 75 mcg, oral, Daily before breakfast, Debbie Pirkl, HYDRO EXCAVATION OPERATOR, 75 mcg at 11/02/24 0556 liothyronine (Cytomel) tablet 5 mcg, 5 mcg, oral, Daily, Debbiejossie Mahmoodkl, HYDRO EXCAVATION OPERATOR, 5 mcg at 11/02/24 0857 melatonin tablet 5 mg, 5 mg, oral, Nightly PRN, Debbie Mahmoodkl, HYDRO EXCAVATION OPERATOR methocarbamol (Robaxin) tablet 750 mg, 750 mg, oral, 4x daily, Debbie Luna, HYDRO EXCAVATION OPERATOR, 750 mg at 11/02/24 08 metoclopramide (Reglan) tablet 10 mg, 10 mg, oral, Daily PRN, Debbie Luna, HYDRO EXCAVATION OPERATOR metoprolol succinate XL (Toprol-XL) 24 hr split tablet 12.5 mg, 12.5 mg, oral, Daily, Ky Ritter MD, 12.5 mg at 11/02/24 0856 mirtazapine (Remeron) tablet 45 mg, 45 mg, oral, Nightly, Debbie Luna, HYDRO EXCAVATION OPERATOR, 45 mg at 11/01/24 2223 pantoprazole (ProtoNix) EC tablet 40 mg, 40 mg, oral, BID AC, Debbie Pirkl, HYDRO EXCAVATION OPERATOR, 40 mg at 11/02/24 0556 sodium chloride 0.9 % infusion, 100 mL/hr, intravenous, Continuous, Janet Soto MD, Stopped at 11/02/24 0841 Insert peripheral IV, , , Once AND Saline lock IV, , , Once AND sodium chloride flush 10 mL, 10 mL, intravenous, q8h PRN, Debbie Mahmoodkl, HYDRO EXCAVATION OPERATOR sucralfate (Carafate) tablet 1 g, 1 g, oral, Before meals & nightly, Debbie Pirkl, HYDRO EXCAVATION OPERATOR, 1 g at 11/02/24 0556 topiramate (Topamax) tablet 100 mg, 100 mg, oral, BID, Debbiejossie Mahmoodkl, HYDRO EXCAVATION OPERATOR, 100 mg at 11/02/24 0856 traMADol (Ultram) tablet 50 mg, 50 mg, oral, q6h PRN, Debbie Pirkl, HYDRO EXCAVATION OPERATOR, 50 mg at 11/02/24 0859 traZODone (Desyrel) tablet 100 mg, 100 mg, oral, Nightly, Debbie Pirkl, HYDRO EXCAVATION OPERATOR, 100 mg at 11/01/24 2151 trimethobenzamide (Tigan) injection 200 mg, 200 mg, intramuscular, q6h PRN, Debbie Pirkl, HYDRO EXCAVATION OPERATOR, 200 mg at 11/01/24 2019 Cosigned by [...] stent placement. Katie Altamirano MD, MPH, FACC, [facility], [facility] Interventional Cardiology Pager Email: [email or web address] * Therese Rojas, LIA - 11/01/2024 10:45 AM EDT SW consult for Home TPN supplies upon discharge Patient will be discharged with continued need for home TPN services. Before admission service provided by [facility]. SW sent referral to them through [facility] to confirm ability to continue services. * Ky Ritter MD - 11/01/2024 7:33 AM EDT Images from the original note were not included. / Hospital Medicine Daily Progress Note - 11/01/2024 7:33 AM; Room: [address] [place] [address] Admission: 10/30/2024 6:28 PM; Length of stay: 2 days THE HOSPITALIST TEAM PREFERS TO USE Hypecal CHAT FOR NON-URGENT COMMUNICATION 7AM- 7PM. IF I DO NOT RESPOND WITHIN 20 MINUTES OR URGENT MATTERS, PLEASE CALL THROUGH THE ARCADE TECHNICIAN. FROM 7PM-7AM, PLEASE PAGE [phone](COVR). Code Status: Full Code Barriers to Discharge: [...] & Plan NSTEMI (non-ST elevated myocardial infarction) ([facility]/HCC) -Trop 390 at OSH, now downward trending [...] complication, without long-term current use of insulin ([facility]) - Patient currently taking metformin at home [...] mL, Last Rate: 158.5 mL/hr at 11/01/24 040 heparin, 0-28 Units/kg/hr, Last Rate: 15 Units/kg/hr [...] LDL 73 10/31/2024 No results found for: [id number] , IRON , TIBC , C3 , [...] informed consent. she was brought to the biology laboratory assistant in a fasting state. The left wrist area was prepped and draped in usual fashion. Micropuncture technique was used for access in the radial artery. A 5-Afghan x 11 cm sheath was placed. Verapamil was given through the sheath, and heparin was administered intravenously. A 5 Afghan JR4 diagnostic catheter was advanced and this [...] catheter was then downsized to a 4 Afghan JR4 diagnostic catheter however this also was not able to engage the right coronary artery. Catheter was exchanged to a JR4 diagnostic catheter which could not engage the left coronary artery. Catheter was exchanged to a 4 Afghan JL 3.5 diagnostic catheter which eventually was able to engage the left coronary artery. Angiography was performed in multiple views. Catheter was exchanged over the wire to a 4 Afghan 3DRC catheter. Multiple attempts were made to [...] Agent, Strain, 3D, Bubble Study 1 1 [facility] Heart Station [address], [place] [phone] (fax) Echocardiogram-[facility] Name: JUAN KONG Study Date: 10/31/2024 11:16 AM B/P: 106 mmHg/67 mmHg HR: 70 bpm Date of : 1990 Location: [facility] Height: 66 in. Age: 34 year(s) Patient [...] minimal pericardial effusion. Procedure Staff Reading Group: [facility] Director Of Agriculture: DAVID Kearney, RDCS Ordering Physician: [place] RITTER Wall Motion Scores -1 - hyperkinesia, 0 - not evaluated, 1 - normal, 2 - hypokinesia, 3 - akinesia, 4 - dyskinesia Discharge Planning Expected Discharge Disposition: Home or Self Care () Signed Ky Ritter MD [facility] 11/01/2024 7:33 AM * Kaye Craig RD - 10/31/2024 2:19 PM EDT Adult [...] POCGLU 82 10/31/2024 1155 BUN 5 (L) 10/31/2024 06 CREATININE 0.60 10/31/2024 06 NA 140 10/31/2024 06 K 4.0 10/31/2024626 PHOS 4.4 10/30/2024 1911 MG 1.8 (L) 10/31/2024626 HGBA1C 4.5 10/31/2024626 HGB 9.4 (L) 10/31/2024626 WBC 3.65 (L) 10/31/2024626 CHOL 116 (L) 10/31/2024626 HDL 43 10/31/2024626 Mar CGM read 67 vs finger stick 82 @ 1155 -> D50 25 g given @ 1228 2/2 NPO -> Mar read 126 ~15 minutes later. 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 No routine or PRN bowel [...] PO diet regular as tolerated. Intakes variable. [place], small meals. ONS. Dextrose 200 g AA [...] ideal body weight (59.3 kg) Calorie needs: 8460-7722 kcals/day based on 25-30 kcal/kg Protein needs: [...] of Nutrition and Dietetics (AND) and the [place] Society of Enteral and Parenteral Nutrition (ASPEN). [...] To reach the Clinical Dietitian, please utilize Hypecal chat Wednesday-Wednesday from 8AM-4PM or call extension [phone]. For weekends (Wednesday-Wednesday) and holidays, the Clinical Dietitian can be reached via pager [phone]) from 9AM-3PM. The Clinical Nutrition Department is unable to respond to Hypecal chat messages on Sundays and hols. [1] Allergies Allergen Reactions Codeine Nausea And Vomiting Nsaids (Non-Steroidal Anti-Inflammatory Drug) GI intolerance Adhesive Rash * Jami Bridges RN - 10/31/2024 12:28 PM EDT Data Technical Lead called to room as patient states her [...] Progress Note - 10/31/2024 7:18 AM; Room: [address] [place] [address] Admission: 10/30/2024 6:28 PM; Length of stay: 1 days THE HOSPITALIST TEAM PREFERS TO USE Hypecal CHAT FOR NON-URGENT COMMUNICATION 7AM- 7PM. IF I DO NOT RESPOND WITHIN 20 MINUTES OR URGENT MATTERS, PLEASE CALL THROUGH THE ARCADE TECHNICIAN. FROM 7PM-7AM, PLEASE PAGE [phone](COVR). Code Status: Full Code Barriers to Discharge: [...] & Plan NSTEMI (non-ST elevated myocardial infarction) ([facility]/HCC) -Trop 390 at OSH, now downward trending -Continue heparin gtt -Cardiology consulted -Pending TTE, cath Prolonged Q-T interval on ECG -QT mildly prolonged -Continue Tigan for now and avoid other QT prolonging agents Type 2 diabetes mellitus without complication, without long-term current use of insulin ([facility]) - Patient currently taking metformin at home [...] heparin, 0-28 Units/kg/hr, Last Rate: 15 Units/kg/hr (10/31/245) sodium chloride, 100 mL/hr, Last Rate: 100 [...] TSH 3.46 10/30/2024 No results found for: [id number] , IRON , TIBC , C3 , C4 , MISAEL , CANCA , ASO , PSA , CEA , CA125 , CA199 , AFP , CA153 Imaging ECG 12 lead Sinus rhythm with sinus arrhythmia with occasional Premature ventricular complexes Prolonged QT Abnormal ECG No previous ECGs available Discharge Planning Expected Discharge Disposition: Home or Self Care () Signed Ky Ritter MD [facility] 10/31/2024 7:18 AM documented in this encounter H&P Notes * Janet Soto MD - 11/02/2024 1:30 PM EDT H&P reviewed. The patient was examined and there are no changes to the H&P. Procedure reviewed with patient, risks including stroke, AL, discussed. Ms Kong is agreeable to coronary [...] who came as a direct admission from [facility] due to chest pain. Patient states that [...] 1 patch, transdermal, Every 72 hours HYDROcodone-acetaminophen (Finley) 5-325 mg tablet 2 tablets, oral, Every [...] Value Ventricular Rate [address] Interval 132 QRS DURATION 84 QT Interval 444 QTC CALCULATION(BAZETT) 499 P [place] 72 R-[place] 50 T Wave [place] 89 Impression Normal sinus rhythm Prolonged QT Abnormal ECG When compared with ECG of 31-OCT-2024 08:43, No significant change was found No results found for: CKTOTAL , CKMB , CKMBINDEX , TROPONINI Limited Echo (TTE) w/wo Limited Doppler, Color Flow, Imaging Agent, Strain, 3D, Bubble Study Result Date: 10/31/2024 1 1 [facility] Heart Station [address] [place] [address] [phone] (fax) Echocardiogram-[facility] Name: JUAN KONG Study Date: 10/31/2024 11:16 AM B/P: 106 mmHg/67 mmHg HR: 70 bpm Date of : 1990 [facility] Age: 34 year(s) Patient Room: [...] minimal pericardial effusion. Procedure Staff Reading Group: [facility] Director Of Agriculture: DAVID Kearney, RDCS Ordering Physician: [place] RITTER [...] on TPN presents a direct admission from [facility] with chief complaint of chest pain. She [...] infiltrated over the right femoral artery. A 5-Afghan Terumo sheath was placed in right femoral [...] was maintained at >250 seconds. A 5 Afghan Cordis XB 3.0 guide was engaged to the left main. I decided to proceed with IVUS. I then advanced a Runthrough wire to the distal left anterior descending. Next, I advanced a Endomondo IVUS catheter. IVUS imaging was performed and [...] 31-OCT-2024 08:43, No significant change was found E[facility]ocardiogram-[facility] Name: JUAN KONG Study Date: 10/31/2024 11:16 AM B/P: 106 mmHg/67 mmHg HR: 70 bpm Date of : 1990 Location: [facility] Height: 66 in. Age: 34 year(s) Patient Room : [facility] Weight: 181 lb. Gender: Female Patient [...] least in part, completed using a voice crab fisher system. Every effort was made to ensure accuracy. However, inadvertent computerized crab fisher errors may be present. Lisa Pena DO Internal Medicine Resident, PGY-2 [facility] 4:26 PM 11/01/24 Maria D Bailey MD PGY-5 Table Games Supervisor [facility] Pager: [phone] [1] No family history on file. [2] [...] the morning. ergocalciferol (Vitamin D-2) 1.25 MG (86683 Units) capsule Take 50,000 Units by mouth 1 (one) time per week. escitalopram (Lexapro) 20 mg tablet Take 20 mg by mouth in the morning. fentaNYL (Duragesic) 12 mcg/hr Place 1 patch on the skin every 3rd (third) day. Takes 12 mcg and 25mcg together every 3 days fentaNYL (Duragesic) 25 mcg/hr Place 1 patch on the skin every 3rd (third) day. HYDROcodone-acetaminophen (Finley) 5-325 mg tablet Take 2 tablets by [...] Procedure reviewed with patient, risks including stroke, AL, , bleeding and infection complications discussed.Ms. Kong [...] who came as a direct admission from [facility] due to chest pain. Patient states that [...] 1 patch, transdermal, Every 72 hours HYDROcodone-acetaminophen (Finley) 5-325 mg tablet 2 tablets, oral, Every [...] Value Ventricular Rate [address] Interval 144 QRS DURATION 88 QT Interval 422 QTC CALCULATION(BAZETT) 495 P [place] 62 R-[place] 19 T Wave [place] 56 Impression Sinus rhythm with sinus arrhythmia [...] QT Abnormal ECG No previous ECGs available Echocardiogram-[facility] Name: JUAN KONG Study Date: 10/31/2024 11:16 AM B/P: 106 mmHg/67 mmHg HR: 70 bpm Date of : 1990 Location: [facility] Height: 66 in. Age: 34 year(s) Patient [...] least in part, completed using a voice crab fisher system. Every effort was made to ensure accuracy. However, inadvertent computerized crab fisher errors may be present. Lisa Pena DO Internal Medicine Resident, PGY-2 [facility] 7:50 AM 10/31/24 [1] No family [...] the morning. ergocalciferol (Vitamin D-2) 1.25 MG (98407 Units) capsule Take 50,000 Units by mouth 1 (one) time per week. escitalopram (Lexapro) 20 mg tablet Take 20 mg by mouth in the morning. fentaNYL (Duragesic) 12 mcg/hr Place 1 patch on the skin every 3rd (third) day. Takes 12 mcg and 25mcg together every 3 days fentaNYL (Duragesic) 25 mcg/hr Place 1 patch on the skin every 3rd (third) day. HYDROcodone-acetaminophen (Finley) 5-325 mg tablet Take 2 tablets by [...] Procedure reviewed with patient, risks of stroke, AL, discussed. Ms Kong is agreeable to proceed [...] who came as a direct admission from [facility] due to chest pain. Patient states that [...] 1 patch, transdermal, Every 72 hours HYDROcodone-acetaminophen (Finley) 5-325 mg tablet 2 tablets, oral, Every [...] Value Ventricular Rate [address] Interval 144 QRS DURATION 88 QT Interval 422 QTC CALCULATION(BAZETT) 495 P [place] 62 R-[place] 19 T Wave [place] 56 Impression Sinus rhythm with sinus arrhythmia [...] QT Abnormal ECG No previous ECGs available Echocardiogram-[facility] Name: JUAN KONG Study Date: 10/31/2024 11:16 AM B/P: 106 mmHg/67 mmHg HR: 70 bpm Date of : 1990 Location: [facility] Height: 66 in. Age: 34 year(s) Patient [...] least in part, completed using a voice crab fisher system. Every effort was made to ensure accuracy. However, inadvertent computerized crab fisher errors may be present. Lisa Pena DO Internal Medicine Resident, PGY-2 [facility] 7:50 AM 10/31/24 [1] No family [...] the morning. ergocalciferol (Vitamin D-2) 1.25 MG (42345 Units) capsule Take 50,000 Units by mouth 1 (one) time per week. escitalopram (Lexapro) 20 mg tablet Take 20 mg by mouth in the morning. fentaNYL (Duragesic) 12 mcg/hr Place 1 patch on the skin every 3rd (third) day. Takes 12 mcg and 25mcg together every 3 days fentaNYL (Duragesic) 25 mcg/hr Place 1 patch on the skin every 3rd (third) day. HYDROcodone-acetaminophen (Finley) 5-325 mg tablet Take 2 tablets by [...] PM THE HOSPITALIST TEAM PREFERS TO USE Hypecal CHAT FOR NON-URGENT COMMUNICATION 7AM- 7PM. IF I DO NOT RESPOND WITHIN 20 MINUTES OR URGENT MATTERS, PLEASE CALL THROUGH THE ARCADE TECHNICIAN. FROM 7PM-7AM, PLEASE PAGE [phone](COVR). Chief Complaint Direct admission from [place] with CP History of Present Illness Juan [...] on TPN presents a direct admission from [facility] with chief complaint of chest pain. Patient [...] is a 7 out of 10. At [facility], x-ray was completed showing mild fluid overload. Troponin was found to be elevated at 390. Cardiology team was contacted and they recommended transfer for higher level of care. She was also started on a heparin infusion at that time. Upon arrival to [facility], repeat labs were completed showing troponin [...] complication, without long-term current use of insulin ([facility]) - Patient currently taking metformin at home, [...] this hospital stay by a member of [facility] Medicine. Past Medical History Medical History[1] [...] Physical Activity: Insufficiently Active (06/30/2023) Received from [facility] Exercise Vital Sign Days of Exercise per Week: 3 days Minutes of Exercise per Session: 10 min Stress: Stress Concern Present (06/30/2023) Received from [facility] [place] of Occupational Health - Occupational Stress Questionnaire Feeling of Stress : Rather much Social Connections: Moderately Integrated (06/30/2023) Received from [facility] Social Connection and Isolation Panel [NHANES] Frequency of Communication with Friends and Family: Twice a week Frequency of Social Gatherings with Friends and Family: Twice a week Attends [facility]: More than 4 times per year [...] Procedure Abnormality Status --------- ------ CBC auto differential[[id number]] Abnormal Final result Please view results for these tests on the individual orders. HIGH SENSITIVITY TROPONIN I ANTI-XA (HEPARIN LEVEL) POCT GLUCOSE METER Imaging ECG 12 lead Sinus rhythm with sinus arrhythmia with occasional Premature ventricular complexes Prolonged QT Abnormal ECG No previous ECGs available Signed Debbie Luna [facility] Medicine 10/30/2024 8:57 PM [1] No past [...] the morning. ergocalciferol (Vitamin D-2) 1.25 MG (74189 Units) capsule Take 50,000 Units by mouth 1 (one) time per week. escitalopram (Lexapro) 20 mg tablet Take 20 mg by mouth in the morning. fentaNYL (Duragesic) 12 mcg/hr Place 1 patch on the skin every 3rd (third) day. Takes 12 mcg and 25mcg together every 3 days fentaNYL (Duragesic) 25 mcg/hr Place 1 patch on the skin every 3rd (third) day. HYDROcodone-acetaminophen (Finley) 5-325 mg tablet Take 2 tablets by [...] from the original note were not included. [facility] Department of Urology CONSULTATION Reason for [...] to thrive. Patient was a transfer from [facility] due to an NSTEMI. Underwent cardiac catheterizations [...] issues with retention. Was [facility]-good specialist for questionable [...] Physical Activity: Insufficiently Active (06/30/2023) Received from [facility] Exercise Vital Sign Days of Exercise per Week: 3 days Minutes of Exercise per Session: 10 min Stress: Stress Concern Present (06/30/2023) Received from [facility] [place] of Occupational Health - Occupational Stress Questionnaire Feeling of Stress : Rather much Social Connections: Moderately Integrated (06/30/2023) Received from [facility] Social Connection and Isolation Panel [NHANES] Frequency of Communication with Friends and Family: Twice a week Frequency of Social Gatherings with Friends and Family: Twice a week Attends [facility]: More than 4 times per year [...] infiltrated over the right femoral artery. A 6-Afghan sheath was placed in right femoral artery. Coronary angiography was performed with a JL4 and then repeated after IC nitroglycerin 50 mcg x 2. At this time, it was apparent that the LAD had a moderate stenosis and IVUS and iFR were performed. Heparin anticoagulation was used for this procedure. ACT was maintained at >250 seconds. A 6 Afghan xb3 was engaged to the [place]. I then advanced a 0.014 guidewire to the distal left anterior descending. IVUS imaging was performed with a Vengainity catheter after additional IC nitroglycerin and IV [...] informed consent. she was brought to the biology laboratory assistant in a fasting state. The left wrist area was prepped and draped in usual fashion. Micropuncture technique was used for access in the radial artery. A 5-Afghan x 11 cm sheath was placed. Verapamil was given through the sheath, and heparin was administered intravenously. A 5 Afghan JR4 diagnostic catheter was advanced and this [...] catheter was then downsized to a 4 Afghan JR4 diagnostic catheter however this also was not able to engage the right coronary artery. Catheter was exchanged to a JR4 diagnostic catheter which could not engage the left coronary artery. Catheter was exchanged to a 4 Afghan JL 3.5 diagnostic catheter which eventually was able to engage the left coronary artery. Angiography was performed in multiple views. Catheter was exchanged over the wire to a 4 Afghan 3DRC catheter. Multiple attempts were made to [...] 2,300 mL, intravenous, Cyclic TPN, Kaye Craig RD albuterol 90 mcg/actuation inhaler 2 puff, 2 puff, inhalation, q6h PRN, Debbie Luna CNP aspirin EC tablet 81 mg, 81 mg, oral, Daily, HENNY Sanon-C, 81 mg at 11/03/24 1319 atorvastatin (Lipitor) tablet 80 mg, 80 mg, oral, Nightly, Rosa Willoughby PA-C clopidogrel (Plavix) tablet 75 mg, 75 mg, oral, Daily, HENNY Sanon-[place], 75 mg at 11/03/24 1319 glucose chewable [...] mcg/hr 1 patch, 1 patch, transdermal, q72h, Roas Willoughby PA-C, 1 patch at 11/03/24 1128 HYDROcodone-acetaminophen (Finley) 5-325 mg per tablet 1 tablet, 1 tablet, oral, q4h PRN, 1 tablet at 11/03/24 1011 OR HYDROcodone-acetaminophen (Finley) 5- 325 mg per tablet 2 tablet, 2 tablet, oral, q4h PRN, Ky Ritter MD, 2 tablet at 11/03/24 1319 hydrocortisone (Cortef) tablet 10 mg, 10 mg, oral, Daily, Debbiejossie Luna, HYDRO EXCAVATION OPERATOR, 10 mg at 11/03/24 1014 HYDROmorphone (Dilaudid) injection 0.2 mg, 0.2 mg, intravenous, q3h PRN, Sid Cruz PA-C hydrOXYzine pamoate (Vistaril) capsule 50 mg, 50 mg, oral, Nightly PRN, Debbie Luna, HYDRO EXCAVATION OPERATOR insulin lispro (HumaLOG) injection 0-5 Units, 0-5 [...] mg, 5 mg, oral, Nightly PRN, Debbie Mahmoodkl, HYDRO EXCAVATION OPERATOR methocarbamol (Robaxin) tablet 750 mg, 750 mg, oral, 4x daily, Rosa Willoughby PA-C, 750 mg at 11/03/24 1319 metoclopramide (Reglan) tablet 10 mg, 10 mg, oral, Daily PRN, Debbie kl, HYDRO EXCAVATION OPERATOR, 10 mg at 11/03/24 0840 metoprolol succinate [...] 10 mL, intravenous, q8h PRN, Debbie Pirkl, HYDRO EXCAVATION OPERATOR sucralfate (Carafate) tablet 1 g, 1 g, oral, Before meals & nightly, Rosa Willoughby PA-C, 1 g at 11/03/24 1013 topiramate (Topamax) tablet 100 mg, 100 mg, oral, BID, Rosa Willoughby PA-C, 100 mg at 11/03/24 1013 traMADol (Ultram) tablet 50 mg, 50 mg, oral, q6h PRN, Debbie Pirkl, HYDRO EXCAVATION OPERATOR, 50 mg at 11/03/24 0838 traZODone (Desyrel) tablet 100 mg, 100 mg, oral, Nightly, Rosa Willoughby PA-C trimethobenzamide (Tigan) injection 200 mg, 200 mg, intramuscular, q6h PRN, Debbie Pirkl, HYDRO EXCAVATION OPERATOR, 200 mg at 11/03/24 0018 [5] No family history on file. Cosigned by Nic Aviles MD at 11/10/2024 3:02 PM EDT * Miles Ramos MD - 11/02/2024 7:54 PM EDTAssociated Order(s): IP CONSULT TO VASCULAR SURGERY Images from the original note were not included. [facility] Vascular/Endovascular Surgery Singeing Torch Operator Complaint R groin hematoma History and Present [...] Physical Activity: Insufficiently Active (06/30/2023) Received from [facility] Exercise Vital Sign Days of Exercise per Week: 3 days Minutes of Exercise per Session: 10 min Stress: Stress Concern Present (06/30/2023) Received from [facility] [place] of Occupational Health - Occupational Stress Questionnaire Feeling of Stress : Rather much Social Connections: Moderately Integrated (06/30/2023) Received from [facility] Social Connection and Isolation Panel [NHANES] Frequency of Communication with Friends and Family: Twice a week Frequency of Social Gatherings with Friends and Family: Twice a week Attends [facility]: More than 4 times per year [...] presenting illness. Objective Vital signs: Vitals: 11/02/24 1924 11/02/24 19211/02/24 19311/02/241944 BP: 114/59 (!) 122/95 93/57 103/59 BP Location: Patient Position: Pulse: 94 94 96 102 Resp: 16 14 Temp: TempSrc: SpO2: 98% 98% [...] Results from last 7 days Lab Units 11/02/2415 11/01/24 10110/31/2462610/30/241910 WBC AUTO 10*3/uL 4.49 4.80 3.65* 4.32 [...] infiltrated over the right femoral artery. A 6-Afghan sheath was placed in right femoral artery. Coronary angiography was performed with a JL4 and then repeated after IC nitroglycerin 50 mcg x 2. At this time, it was apparent that the LAD had a moderate stenosis and IVUS and iFR were performed. Heparin anticoagulation was used for this procedure. ACT was maintained at >250 seconds. A 6 Afghan xb3 was engaged to the [place]. I [...] informed consent. she was brought to the biology laboratory assistant in a fasting state. The left wrist area was prepped and draped in usual fashion. Micropuncture technique was used for access in the radial artery. A 5-Afghan x 11 cm sheath was placed. Verapamil was given through the sheath, and heparin was administered intravenously. A 5 Afghan JR4 diagnostic catheter was advanced and this [...] catheter was then downsized to a 4 Afghan JR4 diagnostic catheter however this also was not able to engage the right coronary artery. Catheter was exchanged to a JR4 diagnostic catheter which could not engage the left coronary artery. Catheter was exchanged to a 4 Afghan JL 3.5 diagnostic catheter which eventually was able to engage the left coronary artery. Angiography was performed in multiple views. Catheter was exchanged over the wire to a 4 Afghan 3DRC catheter. Multiple attempts were made to [...] evacuation Further plans pending per OR findings iMles Ramos MD General Surgery PGY-5 [1] No [...] the morning. ergocalciferol (Vitamin D-2) 1.25 MG (93766 Units) capsule Take 50,000 Units by mouth 1 (one) time per week. escitalopram (Lexapro) 20 mg tablet Take 20 mg by mouth in the morning. fentaNYL (Duragesic) 12 mcg/hr Place 1 patch on the skin every 3rd (third) day. Takes 12 mcg and 25mcg together every 3 days fentaNYL (Duragesic) 25 mcg/hr Place 1 patch on the skin every 3rd (third) day. HYDROcodone-acetaminophen (Finley) 5-325 mg tablet Take 2 tablets by [...] who came as a direct admission from [facility] due to chest pain. Patient states that [...] 1 patch, transdermal, Every 72 hours HYDROcodone-acetaminophen (Finley) 5-325 mg tablet 2 tablets, oral, Every [...] Value Ventricular Rate [address] Interval 132 QRS DURATION 84 QT Interval 444 QTC CALCULATION(BAZETT) 499 P [place] 72 R-[place] 50 T Wave [place] 89 Impression Normal sinus rhythm Prolonged QT Abnormal ECG When compared with ECG of 31-OCT-2024 08:43, No significant change was found No results found for: CKTOTAL , CKMB , CKMBINDEX , TROPONINI Limited Echo (TTE) w/wo Limited Doppler, Color Flow, Imaging Agent, Strain, 3D, Bubble Study Result Date: 10/31/2024 1 1 [facility] Heart Station [address] [place] [address] [phone] (fax) Echocardiogram-[facility] Name: JUAN KONG Study Date: 10/31/2024 11:16 AM B/P: 106 mmHg/67 mmHg HR: 70 bpm Date of : 1990 [facility]. Age: 34 year(s) Patient Room: [facility] Weight: 181 lb. Gender: Female Patient [...] minimal pericardial effusion. Procedure Staff Reading Group: [facility] Director Of Agriculture: DAVID Kearney, RDCS Ordering Physician: [place] RITTER [...] on TPN presents a direct admission from [facility] with chief complaint of chest pain. She [...] infiltrated over the right femoral artery. A 5-Afghan Terumo sheath was placed in right femoral [...] was maintained at >250 seconds. A 5 Afghan Cordis XB 3.0 guide was engaged to the left main. I decided to proceed with IVUS. I then advanced a Runthrough wire to the distal left anterior descending. Next, I advanced a Endomondo IVUS catheter. IVUS imaging was performed and [...] 31-OCT-2024 08:43, No significant change was found Echocardiogram-[facility] Name: JUAN KONG Study Date: 10/31/2024 11:16 AM B/P: 106 mmHg/67 mmHg HR: 70 bpm Date of : 1990 Location: [facility] Height: 66 in. Age: 34 year(s) Patient [...] least in part, completed using a voice crab fisher system. Every effort was made to ensure accuracy. However, inadvertent computerized crab fisher errors may be present. Lisa Pena DO Internal Medicine Resident, PGY-2 [facility] 4:26 PM 11/01/24 Maria D Bailey MD PGY-5 Table Games Supervisor [facility] Pager: [phone] [1] No family history on file. [2] [...] the morning. ergocalciferol (Vitamin D-2) 1.25 MG (36526 Units) capsule Take 50,000 Units by mouth 1 (one) time per week. escitalopram (Lexapro) 20 mg tablet Take 20 mg by mouth in the morning. fentaNYL (Duragesic) 12 mcg/hr Place 1 patch on the skin every 3rd (third) day. Takes 12 mcg and 25mcg together every 3 days fentaNYL (Duragesic) 25 mcg/hr Place 1 patch on the skin every 3rd (third) day. HYDROcodone-acetaminophen (Finley) 5-325 mg tablet Take 2 tablets by [...] me. Additional Comments: Katie Altamirano MD, MPH, [facility], [facility], [facility] Interventional Cardiology Pager Email: [email or web address] * Lisa Pena DO - [...] who came as a direct admission from [facility] due to chest pain. Patient states that [...] 1 patch, transdermal, Every 72 hours HYDROcodone-acetaminophen (Finley) 5-325 mg tablet 2 tablets, oral, Every [...] Value Ventricular Rate [address] Interval 144 QRS DURATION 88 QT Interval 422 QTC CALCULATION(BAZETT) 495 P [place] 62 R-[place] 19 T Wave [place] 56 Impression Sinus rhythm with sinus arrhythmia [...] QT Abnormal ECG No previous ECGs available E[facility]ocardiogram-[facility] Name: JUAN KONG Study Date: 10/31/2024 11:16 AM B/P: 106 mmHg/67 mmHg HR: 70 bpm Date of : 1990 Location: [facility] Height: 66 in. Age: 34 year(s) Patient [...] least in part, completed using a voice crab fisher system. Every effort was made to ensure accuracy. However, inadvertent computerized crab fisher errors may be present. Lisa Pena DO Internal Medicine Resident, PGY-2 [facility] 7:50 AM 10/31/24 [1] No family [...] the morning. ergocalciferol (Vitamin D-2) 1.25 MG (87492 Units) capsule Take 50,000 Units by mouth 1 (one) time per week. escitalopram (Lexapro) 20 mg tablet Take 20 mg by mouth in the morning. fentaNYL (Duragesic) 12 mcg/hr Place 1 patch on the skin every 3rd (third) day. Takes 12 mcg and 25mcg together every 3 days fentaNYL (Duragesic) 25 mcg/hr Place 1 patch on the skin every 3rd (third) day. HYDROcodone-acetaminophen (Finley) 5-325 mg tablet Take 2 tablets by [...] presentation would be considered a Type I AL/NSTEMI. This may or may not have been related to coronary vasospasm caused by the IV Compazine. Continue IV heparin drip. Invasive coronary angiography is indicated; will adjust pharmacological therapy depending on results. Treatment cardiac morbidities as clinically appropriate Katie Altamirano MD, MPH, [facility], [facility], [facility] Interventional Cardiology Pager Email: [email or web address] documented in this encounter Nursing [...] Deepika Matos RN Rapid Response Team Nurse [phone] 11/07/2024 4:54 PM * Suleiman Borges RN [...] voiced no concerns at this time. The internal communications writer urged theprimary RN to call the rapid team if any concerns arise overnight. Suleiman Broges RN Rapid Response Team Nurse [phone] 11/07/2024 12:52 AM * Fern Snider RN [...] Bedside report given to DEE High from [facility] and DEE Sidhu. starch factory laborer RN presented site to bedside RN. Bedside RN visualized site and palpated site to ensure there was no hematoma or bruising, and femoral site appears flat. Both bedside RN and biology laboratory assistant RN mutually agreed that the site presents normal. starch factory laborer RN and bedside RN either palpated or used a doppler to assess pulses on the patient. * Alyce Ortega RN - 11/02/2024 8:30 PM EDT Pt brought to PRE-OP/pacu from biology laboratory assistant. Dr Whitlock holding pressure on right groin site. Pt on monitor. Report obtained. * Nathalie Hurd RN - 11/02/2024 8:13 PM EDT Report given to [facility] WEB PRESS ROLL TENDER, RN from [facility] Any medications or [...] given to DEE Gomez from DEE Shirley. starch factory laborer RN presented site to bedside RN. Bedside RN visualized site and palpated site to ensure there was no hematoma or bruising, and femoral site appears flat. Both bedside RN and biology laboratory assistant RN mutually agreed that the site presents normal. starch factory laborer RN and bedside RN either palpated [...] Emery RN - 11/07/2024 1:32 PM EDT Data Technical Lead talked with patient about discharge planning, Data Technical Lead did offer HHC to patient for custodial due to patient discharging with [facility]. Patient stated she has had [facility] in the past but her insurance is no longer accepting by them. Patient was agreeable to a mass referral to be set out to see who is accepting and who takes her insurance. Data Technical Lead notified SW. * Care Plan - Patricia [...] dizziness when up yesterday. Move out to [place]. Anticipate discharge home. cb Diet: Dietary Orders (From admission, onward) Start Ordered 11/04/24 0855 Special Kitchen Request Once Comments: Please send oatmeal with brown sugar, a bagel with cream cheese, and coffee with cream and sugar. Thank you! 11/04/24 0854 11/03/24 1335 Special Kitchen Request Once Comments: Please send Old Fashioned Hot [place] Nancy entree, with a side of green beans; [...] Healthy/HTN, CABG,Stroke, (2gNA, low fat, low cholesterol) 09/18/223411/01/24 1519 Dietary nutrition supplements Lunch; Gelatein; [place]; 4 oz; Oral Until discontinued Comments: When diet advances Question Answer Comment Deliver with Lunch Select supplement: Gelatein Flavor [place] Strength: 4 oz Route Oral 11/01/24 1519 11/01/24 1518 Dietary nutrition supplements BID (breakfast & dinner); Boost Glucose Control; Chocolate; 8 oz; Oral Until discontinued Comments: When diet advances Question Answer Comment Deliver with BID breakfast & dinner Select supplement: Boost Glucose Control Flavor: Chocolate Strength: 8 oz Route Oral 11/01/24 151 Physician Expected Discharge Date: 11/02/2024 Discharge Delays: PT Six Click Score: 12 OT Six Click Score: PT Recommendations: OT Recommendations: New Consults: Consult Orders (From admission, onward) Start Ordered 11/06/24 08 Inpatient consult to Hospitalist Once Specialty: Internal Medicine Provider: (Not yet assigned) Question Answer Comment Consulting Group Medicine (ADMIT/FLOAT) Reason for Consult? Resume primary Level of Consultation Wood Lather assumes full responsibility 11/06/24843 Therapy Orders (From admission, onward) Start Ordered [...] and behaviors that affect risk of falls [place] fall precautions as indicated by assessment Educate [...] Practitioner order if needed Discuss catheterization for snf situations as appropriate Goal: Urinary catheter remains [...] sites i.e., indwelling lines, tubes and drains [place] appropriate cooling/warming therapies per order Administer medications [...] and behaviors that affect risk of falls [place] fall precautions as indicated by assessment Educate [...] alleviate retention as needed Discuss catheterization for snf situations as appropriate Goal: Urinary catheter remains [...] secretions for changes in amount and color [place] appropriate cooling/warming therapies per order Administer medications [...] maintained or improved Outcome: Progressing Flowsheets (Taken 11/03/2024 0000) Care Plan - Patient's Chronic Conditions and [...] integrity remains intact Outcome: Progressing Flowsheets (Taken 11/03/2024 0000) Skin integrity remains intact: Monitor for areas of redness and/or skin breakdown Assess vascular access sites hourly Change oxygen saturation probe site as needed If on nasal continuous positive airway pressure, respiratory therapy assesses nares and determine need for appliance change or resting period as needed Goal: Oral mucous membranes remain intact Outcome: Progressing Flowsheets (Taken 11/03/2024 0000) Oral mucous membranes remain intact: Assess oral [...] sites i.e., indwelling lines, tubes and drains [place] appropriate cooling/warming therapies per order Instruct and [...] renal function maintained Outcome: Progressing Flowsheets (Taken 11/03/2024 0000) Hemodynamic stability and optimal renal function maintained: [...] within prescribed range Outcome: Progressing Flowsheets (Taken 11/03/2024 0000) Glucose maintained within prescribed range: Monitor blood [...] was noted and manual pressure held by biology laboratory assistant DEE Stubbs over the hematoma site as well. Dr Collins informed and advised to continue holding pressure. At around 7 pm the hematoma was noted to be expanding. Dr Gilmore, the information technology consultant interventionalist was at bedside, evaluated the patient [...] was emergently taken to the OR with biology laboratory assistant team, and surgery at bedside. Patients family (mom and ) were updated on the situation. Patient will be admitted to SICU post-operatively. Janet Soto MD Table Games Supervisor, PGY-4 [facility] 11/02/24 8:56 PM Cosigned by Tino [...] large hematoma. When I arrived to the Offal Worker I assessed the hematoma to be significant [...] PSEUDOANEURYSM (R) Operative Note Date: 11/02/2024 Location: [facility] OR Name: Juan Kong, : 1990, Diagnosis [...] 11/02/242135 Status To bulb suction 11/02/242135 Staff: Plant Tender: Elicia Small RN; Dimitri Hearn RN Scrub Person: Olga Ruiz, BUILDING AND GROUNDS SUPERVISOR; Celeste Burroughs CST Indications: Juan Kong is [...] 6-0 Prolene sutures were placed in a gegzhj-[id number] manner, across the femoral artery luminal defects to obtain hemostasis, taking careful attention not to backwall obstruct the femoral artery. Good hemostasis was witnessed and the incision was packed with thrombin Gelfoam. Next attention was towards the subcutaneous empty space formed by the previous hematoma. The empty space and the wound was thoroughly irrigated using normal saline. A 10 Afghan flat GONSALO drain was placed at the [...] year old female who was transferred to [facility] from [facility] on 10/30 for chest pain. PMH is [...] which brought her to the hospital. At [facility], chest xray showed mild fluid overload and [...] evacuation procedure. She is on fentanyl patches, Finley, and will receive a one time dose of IVMorphine to control the pain. Patient is hemodynamically stable at this time. She is cleared for discharge from a medicine standpoint. Patient is to follow up with Cardiology and Urology in an outpatient setting. * Pre-Sedation Documentation - Janet Soto MD - 11/02/2024 1:31 PM EDT Patient: Juan Kong Procedure Information Date/Time: 11/02/24 1741 Procedure: Coronary angiography (Bilateral) Location: [facility] PRODUCTION FINISHER 3 / [facility] (Cath) Providers: Wali Collins [...] attending. Additional Equipment Requests Janet Soto MD Table Games Supervisor, PGY-4 [facility] 11/02/24 1:31 PM Cosigned by Wali Collins MD at 11/02/2024 3:13 PM EDT * Assessment & Plan Note - Ky Ritter MD - 11/02/2024 1:29 PM EDT Associated Problem(s): NSTEMI (non-ST elevated myocardial infarction) ([facility]) -Trop 390 at OSH, now downward trending [...] pain today patient brought urgently back to Offal Worker * Assessment & Plan Note - Ky [...] pain today patient brought urgently back to Offal Worker * Assessment & Plan Note - Ky Ritter MD - 11/02/2024 1:29 PM EDT Associated Problem(s): Prolonged Q-T interval on ECG -QT mildly prolonged; read as 492 ms however calculation revealing 429 -Okay with reglan * Assessment & Plan Note - Ky Ritter MD - 11/02/2024 1:29 PM EDT Associated Problem(s): Type 2 diabetes mellitus without complication, without long-term current useof insulin ([facility]) - Patient currently taking metformin at home [...] maintained Outcome: Adequate for Discharge Flowsheets (Taken 11/02/2024 0739) Hemodynamic stability and optimal renal function maintained: Monitor labs and assess for signs and symptoms of volume excess or deficit Goal: Glucose maintained within prescribed range Outcome: Adequate for Discharge Flowsheets (Taken 11/02/2024 0739) Glucose maintained within prescribed range: Monitor blood glucose as ordered Problem: Hematologic - Adult Goal: Maintains hematologic stability Outcome: Adequate for Discharge Flowsheets (Taken 11/02/2024 0739) Maintains hematologic stability: Assess for signs and [...] Status Interested Does the patient have a disease case manager rn assigned to them through their insurance? Yes [...] with benadry and Tigan. Pain controlled with Finley and tramadol. * Care Plan - Patricia [...] integrity remains intact Outcome: Progressing Flowsheets (Taken 11/01/2024 075) Skin integrity remains intact: Monitor for areas [...] Date/Time: 11/01/24 1300 Procedure: Coronary angiography Location: [facility] PRODUCTION FINISHER 3 / [facility] (Cath) Providers: Mitchell Agustin [...] attending. Additional Equipment Requests Janet Soto MD Table Games Supervisor, PGY-4 [facility] 11/01/24 12:12 PM Cosigned by Mitchell Agustin MD at 11/01/2024 12:42 PM EDT * Assessment & Plan Note - Ky Ritter MD - 11/01/2024 11:57 AM EDT Associated Problem(s): NSTEMI (non-ST elevated myocardial infarction) ([facility]) -Trop 390 at OSH, now downward trending [...] without complication, without long-term current useof insulin ([facility]) - Patient currently taking metformin at home [...] Date/Time: 10/31/24 1330 Procedure: Coronary angiography Location: [facility] PRODUCTION FINISHER 3 / [facility] (Cath) Providers: Tino Gilmore [...] without complication, without long-term current useof insulin ([facility]) - Patient currently taking metformin at home [...] Associated Problem(s): NSTEMI (non-ST elevated myocardial infarction) (CMS/HCC) -Trop [...] without complication, without long-term current useof insulin ([facility]) - Patient currently taking metformin at home, [...] Info) Description 11/20/2024 2:30 PM EDT Follow-Up [facility] Vascular and Endovascular Surgery [address] [place] [address] Delphine Du NP [address] [facility] [address] [place], [place] [id number] 11/28/2024 11:00 AM EDT Follow-Up [facility] Cardiology [address] [place] [address] Wali Collins MD [address] [facility] [place] [address] 12/04/2024 10:00 AM EDT Office Visit [facility] Heart [facility] [address] [place] [address] Katie Altamirano MD [address] [facility] [place] [address] documented as of this encounter [...] BLOOD CELLS Routine 11/02/2024 9:10 PM EDT POCT GLUCOSE METER UNSOLICITED RESULTS [...] POCT glucose meter (11/07/2024 4:00 PM EDT) [facility] Glucose POC 106(H) 70 - 105 mg/dL 11/07/2024 4:12 PM EDT [facility] ([facility]) Comment:[email or web address] Blood Capillary blood specimen / Unknown 11/07/2024 4:00 PM EDT 11/07/2024 4:12 PM EDT Narrative [facility] ([facility]) - 11/07/2024 4:12 PM EDT Waived Testing in the ED is performed under the ED CLIA certificate #[id number]. us Mauricio Garcia MD LAB BLOOD ORDERABLES Final Resu lt [facility] ([facility]) [address] [place] [address] * (ABNORMAL) POCT glucose meter (11/07/2024 11:55 AM EDT) Glucose POC 121(H) 70 - 105 mg/dL 11/07/2024 12:06 PM EDT [facility] ([facility]) Comment:[email or web address] Blood Capillary blood specimen / Unknown 11/07/2024 11:55 AM EDT 11/07/2024 12:06 PM EDT Narrative [facility] ([facility]) - 11/07/2024 12:06 PM EDT Waived Testing in the ED is performed under the ED CLIA certificate #[id number]. us Mauricio Garcia MD LAB BLOOD ORDERABLES Final Resu lt [facility] ([facility]) [address] [place] [address] * ECG 12 lead (11/07/2024 11:48 AM EDT) Ventricular Rate 91 BPM GE MUSE Atrial Rate [address] Interval 134 ms GE MUSE QRS DURATION 88 ms GE MUSE QT Interval 386 ms GE MUSE QTC CALCULATION(BAZE TT) 474 ms GE MUSE P [place] 63 degrees GE MUSE R-[place] 35 degrees GE MUSE T Wave [place] 46 degrees GE MUSE 11/07/2024 11:3 3 [...] Mauricio Garcia MD ECG ORDERABLES Final Result GE MUSE * (ABNORMAL) POCT glucose meter (11/07/2024 7:43 AM EDT) Glucose POC 118(H) 70 - 105 mg/dL 11/07/2024 7:58 AM EDT [facility] ([facility]) Comment:[email or web address] Blood Capillary blood specimen / Unknown 11/07/2024 7:43 AM EDT 11/07/2024 7:58 AM EDT Narrative [facility] ([facility]) - 11/07/2024 7:58 AM EDT Waived Testing in the ED is performed under the ED CLIA certificate #[id number]. us Mauricio Garcia MD LAB BLOOD ORDERABLES Final Resu lt Performing Organization Address City/[facility]/ZIP Co de Phone Number [facility] ([facility]) [address] [place] [address] * (ABNORMAL) CBC (11/07/2024 6:27 AM EDT) Auto WBC 4.21 4.00 - 10.60 10*3/uL 11/07/2024 7:01 AM EDT [facility] ([facility]) RBC 3.01(L) 3.80 - 5.00 10*6/uL 11/07/2024 7:01 AM EDT [facility] ([facility]) Hemoglobin 9.0(L) 12.0 - 15.0 g/dL 11/07/2024 7:01 AM EDT [facility] ([facility]) Hematocrit 26.9(L) 36.0 - 45.0 % 11/07/2024 7:01 AM EDT [facility] ([facility]) MCV 89.4 82.0 - 98.0 fL 11/07/2024 7:01 AM EDT [facility] ([facility]) MCH 29.9 27.0 - 33.0 pg 11/07/2024 7:01 AM EDT [facility] ([facility]) MCHC 33.5 32.0 - 35.0 g/dL 11/07/2024 7:01 AM EDT [facility] ([facility]) RDW 14.2 11.5 - 15.0 % 11/07/2024 7:01 AM EDT [facility] ([facility]) Platelets 206 150 - 400 10*3/uL 11/07/2024 7:01 AM EDT [facility] ([facility]) Blood Venous blood specimen / Unknown Existing Catheter / Unknown 11/07/2024 6:27 AM EDT 11/07/2024 6:45 AM EDT us Dominic Chappell DO LAB BLOOD ORDERABLES Final Re sult Performing Organization Address City/[facility]/ZIP Co de Phone Number [facility] ([facility]) [address] [place] [address] * High Sensitivity Troponin I (11/07/2024 4:50 AM EDT) High Sensitivity Troponin I 10 <15 ng/L 11/07/2024 1:15 PM EDT [facility] ([facility]) Blood Venous blood specimen / Unknown Existing Catheter / Unknown 11/07/2024 4:50 AM EDT 11/07/2024 5:24 AM EDT us Mauricio Garcia MD LAB BLOOD ORDERABLES Final Resu lt Performing Organization Address [facility]/ZIP Co de Phone Number [facility] [address] [place] [address] * Calcium, ionized (11/07/2024 4:50 AM EDT) Calcium, Ion 1.16 1.15 - 1.33 mmol/L 11/07/2024 5:43 AM EDT [facility] Blood Venous blood specimen / Unknown Existing Catheter / Unknown 11/07/2024 4:50 AM EDT 11/07/2024 5:38 AM EDT us Eduarda Bravo PA-C LAB BLOOD ORDERABLES Final Resu lt [facility]ER[facility] [address] [place] [address], [place] * Phosphorus (11/07/2024 4:50 AM EDT) Phosphorus 4.7 2.5 - 5.0 mg/dL 11/07/2024 5:52 AM EDT [facility] ([facility]) Blood Venous blood specimen / Unknown Existing Catheter / Unknown 11/07/2024 4:50 AM EDT 11/07/2024 5:24 AM EDT Rosa GONZALEZC LAB BLOOD ORDERABLES Final R esult [facility] ([facility]) [address] [place] [address] * Magnesium (11/07/2024 4:50 AM EDT) Magnesium 2.1 1.9 - 2.7 mg/dL 11/07/2024 5:52 AM EDT [facility] ([facility]) Blood Venous blood specimen / Unknown Existing Catheter / Unknown 11/07/2024 4:50 AM EDT 11/07/2024 5:24 AM EDT Rosa Willoughby PA-C LAB BLOOD ORDERABLES Final R esult [facility] ([facility]) [address] [place] [address] * (ABNORMAL) Basic metabolic panel (11/07/2024 4:50 AM EDT) Sodium 139 136 - 145 mmol/L 11/07/2024 5:52 AM EDT [facility] ([facility]) Potassium 3.9 3.5 - 5.1 mmol/L 11/07/2024 5:52 AM EDT [facility] ([facility]) Chloride 105 98 - 107 mmol/L 11/07/2024 5:52 AM EDT [facility] ([facility]) CO2 28 21 - 31 mmol/L 11/07/2024 5:52 AM EDT [facility] ([facility]) BUN 14 7 - 25 mg/dL 11/07/2024 5:52 AM EDT [facility] ([facility]) Creatinine 0.52(L) 0.60 - 1.20 mg/dL 11/07/2024 5:52 AM EDT [facility] ([facility]) Glucose 87 70 - 100 mg/dL 11/07/2024 5:52 AM EDT [facility] ([facility]) Calcium 8.3(L) 8.6 - 10.3 mg/dL 11/07/2024 5:52 AM EDT [facility] ([facility]) Anion Gap 10 7 - 20 mmol/L 11/07/2024 5:52 AM EDT [facility] ([facility]) eGFR 124.2 >60.0 mL/min/1. 73m*2 11/07/2024 5:52 AM EDT [facility] ([facility]) Comment:[facility] s estimated glomerular filtration rate (eGFR) [...] BUN/Creatinine Ratio 26.9 10/17 5:52 AM EDT [facility] ([facility]) Blood Venous blood specimen / Unknown Existing Catheter / Unknown 11/07/2024 4:50 AM EDT 11/07/2024 5:24 AM EDT us Rosa Willoughby PA-C LAB BLOOD ORDERABLES Final R esult [facility] ([facility]) [address] [place] [address] * (ABNORMAL) POCT glucose meter (11/06/2024 10:59 PM EDT) Glucose POC 134(H) 70 - 105 mg/dL 11/06/2024 11:10 PM EDT [facility] ([facility]) Comment:[email or web address] Blood Capillary blood specimen / Unknown 11/06/2024 10:59 PM EDT 11/06/2024 11:10 PM EDT [facility] ([facility]) - 11/06/2024 11:10 PM EDT Waived Testing in the ED is performed under the ED CLIA certificate #[id number]. us Jose Angel Fox MD LAB BLOOD ORDERABLES Final Resu lt Performing Organization Address [facility]/ZIP Co de Phone Number [facility]) [address] [place], [place] [id number] * (ABNORMAL) POCT glucose meter (11/06/2024 8:22 PM EDT) Glucose POC 125(H) 70 - 105 mg/dL 11/06/2024 8:33 PM EDT [facility] ([facility]) Comment:[email or web address] Blood Capillary blood specimen / Unknown 11/06/2024 8:22 PM EDT 11/06/2024 8:33 PM EDT [facility] ([facility]) - 11/06/2024 8:33 PM EDT Waived Testing in the ED is performed under the ED CLIA certificate #[id number]. us Jose Angel Fox MD LAB BLOOD ORDERABLES Final Resu lt Performing Organization Address City/[facility]/ZIP Co de Phone Number [facility] ([facility]) [address] [place], [place] [id number] * (ABNORMAL) POCT glucose meter (11/06/2024 5:05 PM EDT) Glucose POC 135(H) 70 - 105 mg/dL 11/06/2024 5:16 PM EDT [facility] ([facility]) Comment:[email or web address] Blood Capillary blood specimen / Unknown 11/06/2024 5:05 PM EDT 11/06/2024 5:16 PM EDT Narrative [facility] ([facility]) - 11/06/2024 5:16 PM EDT Waived Testing in the ED is performed under the ED CLIA certificate #[id number]. Jose Angel Fox MD LAB BLOOD ORDERABLES Final Resu lt Performing Organization Address City/[facility]/ZIP Co de Phone Number [facility] ([facility] [address] [place] [address] * Calcium, ionized (11/06/2024 12:24 PM EDT) Calcium, Ion 1.15 1.15 - 1.33 mmol/L 11/06/2024 12:55 PM EDT [facility] Blood Venous blood specimen / Unknown Existing Catheter / Unknown 11/06/2024 12:24 PM EDT 11/06/2024 12:52 PM EDT Eduarda Bravo PA-C LAB BLOOD ORDERABLES Final Resu lt Performing Organization Address [facility] Co de Phone Number [facility] [address] [place] [address], [place] * (ABNORMAL) POCT glucose meter (11/06/2024 12:19 PM EDT) Glucose POC 108(H) 70 - 105 mg/dL 11/06/2024 12:30 PM EDT [facility] ([facility]) Comment:[email or web address] Blood Capillary blood specimen / Unknown 11/06/2024 12:19 PM EDT 11/06/2024 12:30 PM EDT Narrative [facility] ([facility]) - 11/06/2024 12:30 PM EDT Waived Testing in the ED is performed under the ED CLIA certificate #[id number]. Jose Angel Fox MD LAB BLOOD ORDERABLES Final Resu lt Performing Organization Address City/[facility]/ZIP Co de Phone Number [facility] ([facility]) [address] [place] [address] * Vasc Us Lower Extremity Pseudoaneurysm Duplex [...] POCT glucose meter (11/06/2024 7:52 AM EDT) [facility] Glucose POC 99 70 - 105 mg/dL 11/06/2024 8:03 AM EDT [facility]) Comment:[email or web address] Blood Capillary blood specimen / Unknown 11/06/2024 7:52 AM EDT 11/06/2024 8:03 AM EDT Narrative [facility] ([facility]) - 11/06/2024 8:03 AM EDT Waived Testing in the ED is performed under the ED CLIA certificate #[id number]. us Jose Angel Fox MD LAB BLOOD ORDERABLES Final Resu lt [facility] ([facility]) [address] [place] [address] * (ABNORMAL) CBC auto differential (11/06/2024 5:50 AM EDT) [facility] Auto WBC 3.50(L) 4.00 - 10.60 10*3/uL 11/06/2024 6:05 AM [facility] ([facility]) RBC 2.99(L) 3.80 - 5.00 10*6/uL 11/06/2024 6:05 AM [facility] ([facility]) Hemoglobin 8.8(L) 12.0 - 15.0 g/dL 11/06/2024 6:05 AM [facility] ([facility]) Hematocrit 26.6(L) 36.0 - 45.0 % 11/06/2024 6:05 AM [facility] ([facility]) MCV 89.0 82.0 - 98.0 fL 11/06/2024 6:05 AM [facility] ([facility]) MCH 29.4 27.0 - 33.0 pg 11/06/2024 6:05 AM [facility] ([facility]) MCHC 33.1 32.0 - 35.0 g/dL 11/06/2024 6:05 AM [facility] ([facility]) RDW 13.9 11.5 - 15.0 % 11/06/2024 6:05 AM [facility] ([facility]) Neutrophils % 42.5 40.0 - 72.0 % 11/06/2024 6:05 AM [facility] ([facility]) Lymphocytes % 40.0 20.0 - 45.0 % 11/06/2024 6:05 AM [facility] ([facility]) Monocytes % 10.0 5.0 - 12.0 % 11/06/2024 6:05 AM [facility] ([facility]) Eosinophils % 6.3(H) 0.0 - 6.0 % 11/06/2024 6:05 AM [facility] ([facility]) Basophils % 0.9 0.0 - 1.0 % 11/06/2024 6:05 AM [facility] ([facility]) Neutrophils Absolute 1.49(L) 1.60 - 7.60 10*3/uL 11/06/2024 6:05 AM [facility] ([facility]) Lymphocytes Absolute 1.40 1.20 - 4.00 10*3/uL 11/06/2024 6:05 AM [facility] ([facility]) Monocytes Absolute 0.35 0.10 - 1.00 10*3/uL 11/06/2024 6:05 AM EDT [facility] ([facility]) Eosinophils Absolute 0.22 0.00 - 0.50 10*3/uL 11/06/2024 6:05 AM EDT [facility] ([facility]) Basophils Absolute 0.03 0.00 - 0.20 10*3/uL 11/06/2024 6:05 AM EDT [facility]) Platelets 185 150 - 400 10*3/uL 11/06/2024 6:05 AM EDT [facility] ([facility]) nRBC % 0.0 0 % 11/06/2024 6:05 AM EDT [facility]) Immature Granulocytes % 0.3 0.0 - 1.0 % 11/06/2024 6:05 AM EDT [facility] ([facility]) Immature Granulocytes Absolute 0.01 0.00 - 0.20 10*3/uL 11/06/2024 6:05 AM EDT [facility] ([facility]) Blood Venous blood specimen / Unknown Existing Catheter / Unknown 11/06/2024 5:50 AM EDT 11/06/2024 5:56 AM EDT us Jose Angel Fox MD LAB BLOOD ORDERABLES Final Resu lt [facility]) [address] [place] [id number] * Phosphorus (11/06/2024 5:50 AM EDT) Phosphorus 4.7 2.5 - 5.0 mg/dL 11/06/2024 6:52 AM EDT [facility]) Blood Venous blood specimen / Unknown Existing Catheter / Unknown 11/06/2024 5:50 AM EDT 11/06/2024 5:56 AM EDT us Rosa Willoughby PA-C LAB BLOOD ORDERABLES Final R esult [facility]) [address] [place] [address] * Magnesium (11/06/2024 5:50 AM EDT) Magnesium 1.9 1.9 - 2.7 mg/dL 11/06/2024 6:52 AM EDT [facility] ([facility]) Blood Venous blood specimen / Unknown Existing Catheter / Unknown 11/06/2024 5:50 AM EDT 11/06/2024 5:56 AM EDT us Rosa Willoughby PA-C LAB BLOOD ORDERABLES Final R esult [facility] ([facility]) [address] [place] [address] * (ABNORMAL) Basic metabolic panel (11/06/2024 5:50 AM EDT) Sodium 139 136 - 145 mmol/L 11/06/2024 6:52 AM EDT [facility] ([facility]) Potassium 3.9 3.5 - 5.1 mmol/L 11/06/2024 6:52 AM EDT [facility] ([facility]) Chloride 105 98 - 107 mmol/L 11/06/2024 6:52 AM EDT [facility] ([facility]) CO2 27 21 - 31 mmol/L 11/06/2024 6:52 AM EDT [facility] ([facility]) BUN 12 7 - 25 mg/dL 11/06/2024 6:52 AM EDT [facility] ([facility]) Creatinine 0.61 0.60 - 1.20 mg/dL 11/06/2024 6:52 AM EDT [facility] ([facility]) Glucose 85 70 - 100 mg/dL 11/06/2024 6:52 AM EDT [facility] ([facility]) Calcium 8.4(L) 8.6 - 10.3 mg/dL 11/06/2024 6:52 AM EDT [facility] ([facility]) Anion Gap 11 7 - 20 mmol/L 11/06/2024 6:52 AM EDT [facility] ([facility]) eGFR 119.5 >60.0 mL/min/1. 73m*2 11/06/2024 6:52 AM EDT [facility] ([facility]) Comment:[facility] s estimated glomerular filtration rate (eGFR) [...] BUN/Creatinine Ratio 19.7 10/17 6:52 AM EDT [facility] ([facility]) Blood Venous blood specimen / Unknown Existing Catheter / Unknown 11/06/2024 5:50 AM EDT 11/06/2024 5:56 AM EDT us Rosa Willoughby PA-C LAB BLOOD ORDERABLES Final R esult [facility]) [address] [place] [address] * (ABNORMAL) POCT glucose meter (11/05/2024 10:07 PM EDT) Glucose POC 118(H) 70 - 105 mg/dL 11/05/2024 10:24 PM EDT [facility] ([facility]) Comment:[email or web address] Blood Capillary blood specimen / Unknown 11/05/2024 10:07 PM EDT 11/05/2024 10:24 PM EDT Narrative [facility]) - 11/05/2024 10:24 PM EDT Waived Testing in the ED is performed under the ED CLIA certificate #[id number]. us Jose Angel Fox MD LAB BLOOD ORDERABLES Final Resu lt [facility]) [address] [place] [address] * POCT glucose meter (11/05/2024 4:37 PM EDT) Glucose POC 96 70 - 105 mg/dL 11/05/2024 4:48 PM EDT [facility] Comment:[email or web address] Blood Capillary blood specimen / Unknown 11/05/2024 4:37 PM EDT 11/05/2024 4:48 PM EDT Narrative [facility] - 11/05/2024 4:48 PM EDT Waived Testing in the ED is performed under the ED CLIA certificate #[id number]. us Jose Angel Fox MD LAB BLOOD ORDERABLES Final Resu lt Performing Organization Address [facility]/ZIP Co de Phone Number [facility]) [address] [place] [address] * (ABNORMAL) POCT glucose meter (11/05/2024 11:36 AM EDT) Glucose POC 123(H) 70 - 105 mg/dL 11/05/2024 11:47 AM EDT [facility] Comment:[email or web address] Blood Capillary blood specimen / Unknown 11/05/2024 11:36 AM EDT 11/05/2024 11:47 AM EDT [facility]) - 11/05/2024 11:47 AM EDT Waived Testing in the ED is performed under the ED CLIA certificate #[id number]. us Jose Angel Fox MD LAB BLOOD ORDERABLES Final Resu lt [facility]) [address] [place] [address] * (ABNORMAL) Hemoglobin and hematocrit, blood (11/05/2024 9:01 AM EDT) Hemoglobin 9.4(L) 12.0 - 15.0 g/dL 11/05/2024 9:24 AM EDT [facility] Hematocrit 27.5(L) 36.0 - 45.0 % 11/05/2024 9:24 AM EDT [facility] Blood Venous blood specimen / Unknown Existing Catheter / Unknown 11/05/2024 9:01 AM EDT 11/05/2024 9:09 AM EDT us Tomasa Disla MD LAB BLOOD ORDERABLES Fin al Result Performing Organization Address City/[facility]/ZIP Co de Phone Number [facility]) [address], [place] [id number] * (ABNORMAL) POCT glucose meter (11/05/2024 8:36 AM EDT) Glucose POC 120(H) 70 - 105 mg/dL 11/05/2024 8:46 AM EDT [facility]) Comment:[email or web address] Blood Capillary blood specimen / Unknown 11/05/2024 8:36 AM EDT 11/05/2024 8:46 AM EDT Narrative [facility]) - 11/05/2024 8:46 AM EDT Waived Testing in the ED is performed under the ED CLIA certificate #[id number]. us Jose Angel Fox MD LAB BLOOD ORDERABLES Final Resu lt Performing Organization Address City/[facility]/ZIP Co de Phone Number [facility]) [address] [place] [address] * Phosphorus (11/05/2024 3:48 AM EDT) Phosphorus 4.0 2.5 - 5.0 mg/dL 11/05/2024 4:19 AM EDT [facility]) Blood Venous blood specimen / Unknown Existing Catheter / Unknown 11/05/2024 3:48 AM EDT 11/05/2024 3:56 AM EDT us Rosa Willoughby PA-C LAB BLOOD ORDERABLES Final R esult [facility] ([facility]) [address] [place] [address] * Magnesium (11/05/2024 3:48 AM EDT) Magnesium 1.9 1.9 - 2.7 mg/dL 11/05/2024 4:19 AM EDT [facility]) Blood Venous blood specimen / Unknown Existing Catheter / Unknown 11/05/2024 3:48 AM EDT 11/05/2024 3:56 AM EDT us Rosa Willoughby PA-C LAB BLOOD ORDERABLES Final R esult Performing Organization Address City/[facility]/ZIP Co de Phone Number [facility] ([facility]) [address] [place] [address] * (ABNORMAL) Basic metabolic panel (11/05/2024 3:48 AM EDT) Sodium 139 136 - 145 mmol/L 11/05/2024 4:19 AM EDT [facility]) Potassium 3.6 3.5 - 5.1 mmol/L 11/05/2024 4:19 AM EDT [facility] ([facility]) Chloride 107 98 - 107 mmol/L 11/05/2024 4:19 AM EDT [facility] ([facility]) CO2 28 21 - 31 mmol/L 11/05/2024 4:19 AM EDT [facility] ([facility]) BUN 11 7 - 25 mg/dL 11/05/2024 4:19 AM EDT [facility] ([facility]) Creatinine 0.48(L) 0.60 - 1.20 mg/dL 11/05/2024 4:19 AM EDT [facility] ([facility]) Glucose 120(H) 70 - 100 mg/dL 11/05/2024 4:19 AM EDT [facility] ([facility]) Calcium 8.0(L) 8.6 - 10.3 mg/dL 11/05/2024 4:19 AM EDT [facility]) Anion Gap 8 7 - 20 mmol/L 11/05/2024 4:19 AM EDT [facility] ([facility]) eGFR 126.6 >60.0 mL/min/1. 73m*2 11/05/2024 4:19 AM EDT [facility]) Comment:[facility] s estimated glomerular filtration rate (eGFR) [...] BUN/Creatinine Ratio 22.9 10/17 4:19 AM EDT [facility]) Blood Venous blood specimen / Unknown Existing Catheter / Unknown 11/05/2024 3:48 AM EDT 11/05/2024 3:56 AM EDT us Rosa Willoughby PA-C LAB BLOOD ORDERABLES Final R esult [facility]) [address] [place] [address] * (ABNORMAL) CBC (11/05/2024 3:48 AM EDT) Auto WBC 3.54(L) 4.00 - 10.60 10*3/uL 11/05/2024 4:23 AM EDT [facility]) RBC 2.91(L) 3.80 - 5.00 10*6/uL 11/05/2024 4:23 AM EDT [facility]) Hemoglobin 8.6(L) 12.0 - 15.0 g/dL 11/05/2024 4:23 AM EDT [facility]) Hematocrit 25.5(L) 36.0 - 45.0 % 11/05/2024 4:23 AM EDT [facility]) MCV 87.6 82.0 - 98.0 fL 11/05/2024 4:23 AM EDT [facility]) MCH 29.6 27.0 - 33.0 pg 11/05/2024 4:23 AM EDT [facility]) MCHC 33.7 32.0 - 35.0 g/dL 11/05/2024 4:23 AM EDT [facility]) RDW 14.1 11.5 - 15.0 % 11/05/2024 4:23 AM EDT [facility]) Platelets 177 150 - 400 10*3/uL 11/05/2024 4:23 AM EDT [facility]) Blood Venous blood specimen / Unknown Existing Catheter / Unknown 11/05/2024 3:48 AM EDT 11/05/2024 3:56 AM EDT us Rosa Willoughby PA-C LAB BLOOD ORDERABLES Final R esult [facility] ([facility]) [address] [place] [address] * Calcium, ionized (11/05/2024 1:00 AM EDT) Calcium, Ion 1.16 1.15 - 1.33 mmol/L 11/05/2024 4:02 AM EDT [facility] Blood Venous blood specimen / Unknown 11/05/2024 1:00 AM EDT 11/05/2024 3:55 AM EDT us Rosa GONZALEZC LAB BLOOD ORDERABLES Final R esult [facility] [address] [place] [address], [place] * (ABNORMAL) Hemoglobin and hematocrit, blood (11/05/2024 12:54 AM EDT) Hemoglobin 8.5(L) 12.0 - 15.0 g/dL 11/05/2024 1:54 AM EDT [facility]) Hematocrit 24.9(L) 36.0 - 45.0 % 11/05/2024 1:54 AM EDT [facility]) Blood Venous blood specimen / Unknown Existing Catheter / Unknown 11/05/2024 12:54 AM EDT 11/05/2024 1:19 AM EDT Tomasa Disla MD LAB BLOOD ORDERABLES Fin al Result [facility]) [address] [place] [address] * POCT glucose meter (11/04/2024 10:33 PM EDT) Glucose POC 102 70 - 105 mg/dL 11/04/2024 10:44 PM EDT [facility]) Comment:[email or web address] Blood Capillary blood specimen / Unknown 11/04/2024 10:33 PM EDT 11/04/2024 10:44 PM EDT Narrative [facility]) - 11/04/2024 10:44 PM EDT Waived Testing in the ED is performed under the ED CLIA certificate #[id number]. us Jose Angel Fox MD LAB BLOOD ORDERABLES Final Resu lt [facility] ([facility]) [address] [place] [address] * (ABNORMAL) Basic metabolic panel (11/04/2024 8:17 PM EDT) Sodium 137 136 - 145 mmol/L 11/04/2024 8:42 PM EDT [facility]) Potassium 4.0 3.5 - 5.1 mmol/L 11/04/2024 8:42 PM EDT [facility]) Chloride 106 98 - 107 mmol/L 11/04/2024 8:42 PM EDT [facility]) CO2 27 21 - 31 mmol/L 11/04/2024 8:42 PM EDT [facility]) BUN 14 7 - 25 mg/dL 11/04/2024 8:42 PM EDT [facility]) Creatinine 0.48(L) 0.60 - 1.20 mg/dL 11/04/2024 8:42 PM EDT [facility]) Glucose 82 70 - 100 mg/dL 11/04/2024 8:42 PM EDT [facility]) Calcium 7.8(L) 8.6 - 10.3 mg/dL 11/04/2024 8:42 PM EDT [facility]) Anion Gap 8 7 - 20 mmol/L 11/04/2024 8:42 PM EDT [facility]) eGFR 126.6 >60.0 mL/min/1. 73m*2 11/04/2024 8:42 PM EDT [facility]) Comment:[facility] s estimated glomerular filtration rate (eGFR) [...] BUN/Creatinine Ratio 29.2 10/17 8:42 PM EDT [facility]) Blood Venous blood specimen / Unknown Existing Catheter / Unknown 11/04/2024 8:17 PM EDT 11/04/2024 8:17 PM EDT us Audie Sylvester PA-C LAB BLOOD ORDERABLES F inal Result [facility]) [address] [place] [address] * (ABNORMAL) Hemoglobin and hematocrit, blood (11/04/2024 8:13 PM EDT) Hemoglobin 9.0(L) 12.0 - 15.0 g/dL 11/04/2024 8:24 PM EDT [facility]) Hematocrit 26.7(L) 36.0 - 45.0 % 11/04/2024 8:24 PM EDT [facility]) Blood Venous blood specimen / Unknown Existing Catheter / Unknown 11/04/2024 8:13 PM EDT 11/04/2024 8:17 PM EDT us Tomasa Disla MD LAB BLOOD ORDERABLES Fin al Result Performing Organization Address City/[facility]/ZIP Co de Phone Number [facility]) [address] [place] [id number] * (ABNORMAL) POCT glucose meter (11/04/2024 5:12 PM EDT) Glucose POC 147(H) 70 - 105 mg/dL 11/04/2024 5:23 PM EDT [facility]) Comment:[email or web address] Blood Capillary blood specimen / Unknown 11/04/2024 5:12 PM EDT 11/04/2024 5:23 PM EDT Narrative [facility]) - 11/04/2024 5:23 PM EDT Waived Testing in the ED is performed under the ED CLIA certificate #[id number]. us Jose Angel Fox MD LAB BLOOD ORDERABLES Final Resu lt [facility]) [address] [place] [address] * Transfuse RBC (11/04/2024 4:57 PM EDT) us Tomasa Disla MD BLOOD TRANSFUSION ORDERA BLES Final Result * Transfuse RBC: 1 Units (11/04/2024 4:57 PM EDT) Tomasa Disla MD BLOOD TRANSFUSION ORDERA BLES Final Result * ECG 12 lead (11/04/2024 1:59 PM EDT) Ventricular Rate 100 BPM GE MUSE Atrial Rate [address] Interval 132 ms GE MUSE QRS DURATION 94 ms GE MUSE QT Interval 382 ms GE MUSE QTC CALCULATION(BAZE TT) 492 ms GE MUSE P [place] 60 degrees GE MUSE R-[place] 34 degrees GE MUSE T Wave [place] 58 degrees GE MUSE 11/04/2024 1:40 PM [...] - 15.0 g/dL 11/04/2024 1:49 PM EDT [facility]) Hematocrit 23.9(L) 36.0 - 45.0 % 11/04/2024 1:49 PM EDT [facility] ([facility]) Blood Venous blood specimen / Unknown Existing Catheter / Unknown 11/04/2024 1:38 PM EDT 11/04/2024 1:43 PM EDT us Tomasa Disla MD LAB BLOOD ORDERABLES Fin al Result [facility]) [address] [place] [address] * (ABNORMAL) Basic metabolic panel (11/04/2024 1:38 PM EDT) Sodium 135(L) 136 - 145 mmol/L 11/04/2024 2:09 PM EDT [facility]) Potassium 4.2 3.5 - 5.1 mmol/L 11/04/2024 2:09 PM EDT [facility]) Chloride 106 98 - 107 mmol/L 11/04/2024 2:09 PM EDT [facility] ([facility]) CO2 24 21 - 31 mmol/L 11/04/2024 2:09 PM EDT [facility]) BUN 13 7 - 25 mg/dL 11/04/2024 2:09 PM EDT [facility]) Creatinine 0.61 0.60 - 1.20 mg/dL 11/04/2024 2:09 PM EDT [facility]) Glucose 191(H) 70 - 100 mg/dL 11/04/2024 2:09 PM EDT [facility]) Calcium 7.6(L) 8.6 - 10.3 mg/dL 11/04/2024 2:09 PM EDT [facility]) Anion Gap 9 7 - 20 mmol/L 11/04/2024 2:09 PM EDT [facility] ([facility]) eGFR 119.5 >60.0 mL/min/1. 73m*2 11/04/2024 2:09 PM EDT [facility]) Comment:[facility] s estimated glomerular filtration rate (eGFR) [...] BUN/Creatinine Ratio 21.3 10/17 2:09 PM EDT [facility]) Blood Venous blood specimen / Unknown Existing Catheter / Unknown 11/04/2024 1:38 PM EDT 11/04/2024 1:43 PM EDT Tomasa Disla MD LAB BLOOD ORDERABLES Fin al Result [facility]) [address] [place], [place] [id number] * (ABNORMAL) High Sensitivity Troponin I (11/04/2024 1:38 PM EDT) [facility] High Sensitivity Troponin I 36(H) <15 ng/L 11/04/2024 2:13 PM EDT [facility]) Blood Venous blood specimen / Unknown Existing Catheter / Unknown 11/04/2024 1:38 PM EDT 11/04/2024 1:43 PM EDT Tomasa Disla MD LAB BLOOD ORDERABLES Fin al Result [facility]) [address] [place] [address] * (ABNORMAL) POCT glucose meter (11/04/2024 1:06 PM EDT) Pathologist [facility] Glucose POC 125(H) 70 - 105 mg/dL 11/04/2024 1:19 PM EDT [facility]) Comment:[email or web address] Blood Capillary blood specimen / Unknown 11/04/2024 1:06 PM EDT 11/04/2024 1:19 PM EDT Narrative [facility] ([facility]) - 11/04/2024 1:19 PM EDT Waived Testing in the ED is performed under the ED CLIA certificate #[id number]. us Jose Angel Fox MD LAB BLOOD ORDERABLES Final Resu lt [facility]) [address] [place] [address] * CTA Abdomen Pelvis W IV Contrast [...] above Electronically signed: Raegan Quinn. us Mikayla INMAN-Elroy IMG CT PROCEDURES Final Resul t * (ABNORMAL) POCT glucose meter (11/04/2024 9:20 AM EDT) Glucose POC 124(H) 70 - 105 mg/dL 11/04/2024 9:31 AM EDT [facility]) Comment:[email or web address] Blood Capillary blood specimen / Unknown 11/04/2024 9:20 AM EDT 11/04/2024 9:31 AM EDT Narrative [facility]) - 11/04/2024 9:31 AM EDT Waived Testing in the ED is performed under the ED CLIA certificate #[id number]. Jose Angel Fox MD LAB BLOOD ORDERABLES Final Resu lt [facility] ([facility]) [address] [place] [address] * (ABNORMAL) POCT glucose meter (11/04/2024 5:10 AM EDT) Glucose POC 146(H) 70 - 105 mg/dL 11/04/2024 5:21 AM EDT [facility]) Comment:[email or web address] Blood Capillary blood specimen / Unknown 11/04/2024 5:10 AM EDT 11/04/2024 5:21 AM EDT [facility] ([facility]) - 11/04/2024 5:21 AM EDT Waived Testing in the ED is performed under the ED CLIA certificate #[id number]. us Ky Ritter MD LAB BLOOD ORDERABLES Final Re sult [facility] ([facility]) [address] [place], [place] [id number] * Phosphorus (11/04/2024 5:05 AM EDT) Phosphorus 3.3 2.5 - 5.0 mg/dL 11/04/2024 6:27 AM EDT [facility]) Blood Venous blood specimen / Unknown Existing Catheter / Unknown 11/04/2024 5:05 AM EDT 11/04/2024 5:08 AM EDT us Rosa Willoughby PA-C LAB BLOOD ORDERABLES Final R esult Performing Organization Address City/[facility]/ZIP Co de Phone Number [facility]) [address] [place] [address] * Magnesium (11/04/2024 5:05 AM EDT) Magnesium 1.9 1.9 - 2.7 mg/dL 11/04/2024 6:27 AM EDT [facility]) Blood Venous blood specimen / Unknown Existing Catheter / Unknown 11/04/2024 5:05 AM EDT 11/04/2024 5:08 AM EDT us Rosa Willoughby PA-C LAB BLOOD ORDERABLES Final R esult [facility]) [address] [place] [address] * (ABNORMAL) Basic metabolic panel (11/04/2024 5:05 AM EDT) Sodium 140 136 - 145 mmol/L 11/04/2024 6:27 AM EDT [facility]) Potassium 3.6 3.5 - 5.1 mmol/L 11/04/2024 6:27 AM EDT [facility]) Chloride 108(H) 98 - 107 mmol/L 11/04/2024 6:27 AM EDT [facility]) CO2 28 21 - 31 mmol/L 11/04/2024 6:27 AM EDT [facility]) BUN 9 7 - 25 mg/dL 11/04/2024 6:27 AM EDT [facility]) Creatinine 0.45(L) 0.60 - 1.20 mg/dL 11/04/2024 6:27 AM EDT [facility]) Glucose 128(H) 70 - 100 mg/dL 11/04/2024 6:27 AM EDT [facility]) Calcium 7.6(L) 8.6 - 10.3 mg/dL 11/04/2024 6:27 AM EDT [facility]) Anion Gap 8 7 - 20 mmol/L 11/04/2024 6:27 AM EDT [facility]) eGFR 128.6 >60.0 mL/min/1. 73m*2 11/04/2024 6:27 AM EDT [facility]) Comment:[facility] s estimated glomerular filtration rate (eGFR) [...] BUN/Creatinine Ratio 20.0 10/17 6:27 AM EDT [facility]) Blood Venous blood specimen / Unknown Existing Catheter / Unknown 11/04/2024 5:05 AM EDT 11/04/2024 5:08 AM EDT us Rosa Willoughby PA-C LAB BLOOD ORDERABLES Final R esult [facility]) [address] [place] [address] * (ABNORMAL) CBC (11/04/2024 5:05 AM EDT) Auto WBC 3.79(L) 4.00 - 10.60 10*3/uL 11/04/2024 5:17 AM EDT [facility]) RBC 2.66(L) 3.80 - 5.00 10*6/uL 11/04/2024 5:17 AM EDT [facility]) Hemoglobin 8.0(L) 12.0 - 15.0 g/dL 11/04/2024 5:17 AM EDT [facility]) Hematocrit 23.7(L) 36.0 - 45.0 % 11/04/2024 5:17 AM EDT [facility]) MCV 89.1 82.0 - 98.0 fL 11/04/2024 5:17 AM EDT [facility]) MCH 30.1 27.0 - 33.0 pg 11/04/2024 5:17 AM EDT [facility]) MCHC 33.8 32.0 - 35.0 g/dL 11/04/2024 5:17 AM EDT [facility]) RDW 13.9 11.5 - 15.0 % 11/04/2024 5:17 AM EDT [facility]) Platelets 185 150 - 400 10*3/uL 11/04/2024 5:17 AM EDT [facility]) Blood Venous blood specimen / Unknown Existing Catheter / Unknown 11/04/2024 5:05 AM EDT 11/04/2024 5:08 AM EDT us Rosa Willoughby PA-C LAB BLOOD ORDERABLES Final R esult [facility]) [address] [place] [address] * (ABNORMAL) Calcium, ionized (11/04/2024 5:05 AM EDT) Calcium, Ion 1.12(L) 1.15 - 1.33 mmol/L 11/04/2024 5:15 AM EDT [facility] Blood Venous blood specimen / Unknown Existing Catheter / Unknown 11/04/2024 5:05 AM EDT 11/04/2024 5:12 AM EDT us Rosa Willoughby PA-C LAB BLOOD ORDERABLES Final R esult Performing Organization Address City/[facility]/ZIP Co de Phone Number [facility] [address] [place] [address], [place] * (ABNORMAL) POCT glucose meter (11/04/2024 12:12 AM EDT) Glucose POC 190(H) 70 - 105 mg/dL 11/04/2024 12:23 AM EDT [facility] ([facility]) Comment: Blood Capillary blood specimen / Unknown 11/04/2024 12:12 AM EDT 11/04/2024 12:23 AM EDT Narrative [facility] ([facility]) - 11/04/2024 12:23 AM EDT Waived Testing in the ED is performed under the ED CLIA certificate #[id number]. Ky Ritter MD LAB BLOOD ORDERABLES Final Re sult Performing Organization Address [facility] Co de Phone Number [facility] ([facility]) [address] [place] [address] * (ABNORMAL) Hemoglobin and hematocrit, blood (11/04/2024 12:09 AM EDT) Hemoglobin 8.0(L) 12.0 - 15.0 g/dL 11/04/2024 12:56 AM EDT [facility]) Hematocrit 23.5(L) 36.0 - 45.0 % 11/04/2024 12:56 AM EDT [facility]) Blood Venous blood specimen / Unknown Existing Catheter / Unknown 11/04/2024 12:09 AM EDT 11/04/2024 12:13 AM EDT Sid INMAN-Elroy LAB BLOOD ORDERABLES Final Result [facility]) [address] [place] [address] * (ABNORMAL) POCT glucose meter (11/03/2024 9:52 PM EDT) Glucose POC 130(H) 70 - 105 mg/dL 11/03/2024 10:03 PM EDT [facility]) Comment:[email or web address] Blood Capillary blood specimen / Unknown 11/03/2024 9:52 PM EDT 11/03/2024 10:03 PM EDT Narrative [facility]) - 11/03/2024 10:03 PM EDT Waived Testing in the ED is performed under the ED CLIA certificate #[id number]. Ky Ritter MD LAB BLOOD ORDERABLES Final Re sult Performing Organization Address City/[facility]/ZIP Co de Phone Number [facility]) [address] [place] [address] * (ABNORMAL) Hemoglobin and hematocrit, blood (11/03/2024 6:34 PM EDT) Hemoglobin 8.3(L) 12.0 - 15.0 g/dL 11/03/2024 6:48 PM EDT [facility]) Hematocrit 24.9(L) 36.0 - 45.0 % 11/03/2024 6:48 PM EDT [facility]) Blood Venous blood specimen / Unknown Existing Catheter / Unknown 11/03/2024 6:34 PM EDT 11/03/2024 6:40 PM EDT Sid INMAN-C LAB BLOOD ORDERABLES Final Result [facility]) [address] [place] [address] * POCT glucose meter (11/03/2024 5:35 PM EDT) [facility] Glucose POC 101 70 - 105 mg/dL 11/03/2024 5:45 PM EDT [facility] Comment:[email or web address] Blood Capillary blood specimen / Unknown 11/03/2024 5:35 PM EDT 11/03/2024 5:45 PM EDT Narrative [facility]) - 11/03/2024 5:45 PM EDT Waived Testing in the ED is performed under the ED CLIA certificate #[id number]. us Ky Ritter MD LAB BLOOD ORDERABLES Final Re sult [facility]) [address] [place] [address] * (ABNORMAL) CBC (11/03/2024 1:23 PM EDT) [facility] Auto WBC 7.60 4.00 - 10.60 10*3/uL 11/03/2024 1:54 PM EDT [facility]) RBC 3.01(L) 3.80 - 5.00 10*6/uL 11/03/2024 1:54 PM EDT [facility]) Hemoglobin 9.0(L) 12.0 - 15.0 g/dL 11/03/2024 1:54 PM EDT [facility]) Hematocrit 26.7(L) 36.0 - 45.0 % 11/03/2024 1:54 PM EDT [facility]) MCV 88.7 82.0 - 98.0 fL 11/03/2024 1:54 PM EDT [facility]) MCH 29.9 27.0 - 33.0 pg 11/03/2024 1:54 PM EDT [facility]) MCHC 33.7 32.0 - 35.0 g/dL 11/03/2024 1:54 PM EDT [facility]) RDW 13.9 11.5 - 15.0 % 11/03/2024 1:54 PM EDT [facility]) Platelets 253 150 - 400 10*3/uL 11/03/2024 1:54 PM EDT [facility]) Blood Venous blood specimen / Unknown Existing Catheter / Unknown 11/03/2024 1:23 PM EDT 11/03/2024 1:34 PM EDT us Mikayla Jennings PA-C LAB BLOOD ORDERABLES Final Re sult [facility]) [address], [place] [id number] * (ABNORMAL) POCT glucose meter (11/03/2024 11:35 AM EDT) Glucose POC 145(H) 70 - 105 mg/dL 11/03/2024 11:47 AM EDT [facility] Comment:[email or web address] Blood Capillary blood specimen / Unknown 11/03/2024 11:35 AM EDT 11/03/2024 11:47 AM EDT Narrative [facility]) - 11/03/2024 11:47 AM EDT Waived Testing in the ED is performed under the ED CLIA certificate #[id number]. us Ky Ritter MD LAB BLOOD ORDERABLES Final Re sult [facility] ([facility]) [address], [place] [id number] * (ABNORMAL) POCT glucose meter (11/03/2024 7:46 AM EDT) Glucose POC 135(H) 70 - 105 mg/dL 11/03/2024 8:09 AM EDT [facility]) Comment:[email or web address] Blood Capillary blood specimen / Unknown 11/03/2024 7:46 AM EDT 11/03/2024 8:09 AM EDT Narrative [facility]) - 11/03/2024 8:09 AM EDT Waived Testing in the ED is performed under the ED CLIA certificate #[id number]. us Ky Ritter MD LAB BLOOD ORDERABLES Final Re sult [facility]) [address] [place] [address] * Phosphorus (11/03/2024 4:46 AM EDT) Phosphorus 3.7 2.5 - 5.0 mg/dL 11/03/2024 5:30 AM EDT [facility]) Blood Venous blood specimen / Unknown Existing Catheter / Unknown 11/03/2024 4:46 AM EDT 11/03/2024 4:58 AM EDT us Rosa Willoughby PA-C LAB BLOOD ORDERABLES Final R esult Performing Organization Address City/[facility]/ZIP Co de Phone Number [facility]) [address] [place] [address] * Magnesium (11/03/2024 4:46 AM EDT) Magnesium 2.2 1.9 - 2.7 mg/dL 11/03/2024 5:30 AM EDT [facility]) Blood Venous blood specimen / Unknown Existing Catheter / Unknown 11/03/2024 4:46 AM EDT 11/03/2024 4:58 AM EDT Rosa GONZALEZC LAB BLOOD ORDERABLES Final R esult [facility]) [address], [place] [id number] * (ABNORMAL) Basic metabolic panel (11/03/2024 4:46 AM EDT) Sodium 136 136 - 145 mmol/L 11/03/2024 5:30 AM EDT [facility] Potassium 4.4 3.5 - 5.1 mmol/L 11/03/2024 5:30 AM EDT [facility] [facility] Chloride 108(H) 98 - 107 mmol/L 11/03/2024 5:30 AM EDT [facility] ([facility]) CO2 22 21 - 31 mmol/L 11/03/2024 5:30 AM EDT [facility] ([facility]) BUN 6(L) 7 - 25 mg/dL 11/03/2024 5:30 AM T [facility] ([facility]) Creatinine 0.52(L) 0.60 - 1.20 mg/dL 11/03/2024 5:30 AM [facility] ([facility]) Glucose 170(H) 70 - 100 mg/dL 11/03/2024 5:30 AM [facility] ([facility]) Calcium 7.9(L) 8.6 - 10.3 mg/dL 11/03/2024 5:30 AM [facility] ([facility]) Anion Gap 10 7 - 20 mmol/L 11/03/2024 5:30 AM [facility] ([facility]) eGFR 124.2 >60.0 mL/min/1. 73m*2 11/03/2024 5:30 AM [facility] ([facility]) Comment:[facility] s estimated glomerular filtration rate (eGFR) [...] individuals. BUN/Creatinine Ratio 11.5 10/16 5:30 AM [facility] ([facility]) Blood Venous blood specimen / Unknown Existing Catheter / Unknown 11/03/2024 4:46 AM EDT 11/03/2024 4:58 AM EDT us Rosa Willoughby PA-C LAB BLOOD ORDERABLES Final R esult [facility] ([facility]) [address] [place] [address] * (ABNORMAL) CBC (11/03/2024 4:46 AM EDT) Auto WBC 6.23 4.00 - 10.60 10*3/uL 11/03/2024 5:09 AM EDT [facility] ([facility]) RBC 3.23(L) 3.80 - 5.00 10*6/uL 11/03/2024 5:09 AM EDT [facility] ([facility]) Hemoglobin 9.5(L) 12.0 - 15.0 g/dL 11/03/2024 5:09 AM EDT [facility] ([facility]) Hematocrit 28.7(L) 36.0 - 45.0 % 11/03/2024 5:09 AM EDT [facility] ([facility]) MCV 88.9 82.0 - 98.0 fL 11/03/2024 5:09 AM EDT [facility] ([facility]) MCH 29.4 27.0 - 33.0 pg 11/03/2024 5:09 AM EDT [facility] ([facility]) MCHC 33.1 32.0 - 35.0 g/dL 11/03/2024 5:09 AM EDT [facility] ([facility]) RDW 13.6 11.5 - 15.0 % 11/03/2024 5:09 AM EDT [facility] ([facility]) Platelets 248 150 - 400 10*3/uL 11/03/2024 5:09 AM EDT [facility] ([facility]) Blood Venous blood specimen / Unknown Existing Catheter / Unknown 11/03/2024 4:46 AM EDT 11/03/2024 4:58 AM EDT us Rosa Willoughby PA-C LAB BLOOD ORDERABLES Final R esult [facility] [address] [place] [address] * Calcium, ionized (11/03/2024 4:46 AM EDT) Calcium, Ion 1.16 1.15 - 1.33 mmol/L 11/03/2024 5:32 AM EDT [facility] RESPIRATORY THERAPY Blood Venous blood specimen / Unknown Existing Catheter / Unknown 11/03/2024 4:46 AM EDT 11/03/2024 5:20 AM EDT Rosa Willoughby PA-C LAB BLOOD ORDERABLES Final R esult Performing Organization Address City/[facility]/ZIP Co de Phone Number [facility]PIRATORY [facility] [address] [place] [address], [place] * (ABNORMAL) INTEM C (11/03/2024 1:58 AM EDT) INTEM C CLOTTING TIME 169 139 - 205 s 11/03/2024 1:58 AM EDT [facility] RESPIRATORY THERAPY INTEM C AMPLITUDE 5 MIN 48 36 - 54 mm 11/03/2024 1:58 AM EDT [facility] RESPIRATORY THERAPY INTEM C AMPLITUDE 10 MIN 57 46 - 63 mm 11/03/2024 1:58 AM EDT [facility] RESPIRATORY THERAPY INTEM C AMPLITUDE 20 MIN 63 53 - 68 mm 11/03/2024 1:58 AM EDT [facility] RESPIRATORY THERAPY INTEM C MAXIMUM CLOT FIRMNESS 63 55 - 70 mm 11/03/2024 1:58 AM EDT [facility] RESPIRATORY THERAPY INTEM C LYSIS INDEX 60 MIN 95 93 - 100 % 11/03/2024 1:58 AM EDT [facility] RESPIRATORY THERAPY INTEM C MAXIMUM LYSIS 12(H) 0 - 7 % 11/03/2024 1:58 AM EDT [facility]PIRATORY THERAPY Comment:CT^Preliminary Resul t Blood 11/03/2024 1:58 AM EDT 11/03/2024 1:58 AM EDT us Ky Ritter MD LAB BLOOD ORDERABLES Final Re sult Performing Organization Address [facility]/ZIP Co de Phone Number [facility] RESPIRATORY THERAPY [address] [place] [address], [place] * HEPTEM C (11/03/2024 1:58 AM EDT) HEPTEM C CLOTTING TIME 168 141 - 215 s 11/03/2024 1:58 AM EDT [facility] RESPIRATORY THERAPY HEPTEM C AMPLITUDE 5 MIN 46 33 - 51 mm 11/03/2024 1:58 AM EDT [facility] RESPIRATORY THERAPY HEPTEM C AMPLITUDE 10 MIN 56 44 - 61 mm 11/03/2024 1:58 AM EDT [facility] RESPIRATORY THERAPY HEPTEM C AMPLITUDE 20 MIN 62 52 - 67 mm 11/03/2024 1:58 AM EDT [facility] RESPIRATORY THERAPY HEPTEM C MAXIMUM CLOT FIRMNESS 63 54 - 69 mm 11/03/2024 1:58 AM EDT [facility] RESPIRATORY THERAPY Blood 11/03/2024 1:58 AM EDT 11/03/2024 1:58 AM EDT Ky Ritter MD LAB BLOOD ORDERABLES Final Re sult Performing Organization Address [facility] Co de Phone Number [facility] RESPIRATORY THERAPY [address] [place] [address], [place] * (ABNORMAL) EXTEM C (11/03/2024 1:58 AM EDT) EXTEM C CLOTTING TIME 51 51 - 73 s 11/03/2024 1:58 AM EDT [facility] RESPIRATORY THERAPY EXTEM C AMPLITUDE 5 MIN 52 33 - 52 mm 11/03/2024 1:58 AM EDT [facility] RESPIRATORY THERAPY EXTEM C AMPLITUDE 10 MIN 61 45 - 62 mm 11/03/2024 1:58 AM EDT [facility] RESPIRATORY THERAPY EXTEM C AMPLITUDE 20 MIN 67 54 - 69 mm 11/03/2024 1:58 AM EDT [facility] RESPIRATORY THERAPY EXTEM C MAXIMUM CLOT FIRMNESS 68 57 - 72 mm 11/03/2024 1:58 AM EDT [facility] RESPIRATORY THERAPY EXTEM C LYSIS INDEX 60 MIN 96 94 - 100 % 11/03/2024 1:58 AM EDT [facility] RESPIRATORY THERAPY EXTEM C MAXIMUM LYSIS 10(H) 0 - 6 % 11/03/2024 1:58 AM EDT [facility] RESPIRATORY THERAPY Comment:CT^Preliminary Resul t Blood 11/03/2024 1:58 AM EDT 11/03/2024 1:58 AM EDT Ky Ritter MD LAB BLOOD ORDERABLES Final Re sult Performing Organization Address City/[facility]/ZIP Co de Phone Number [facility] RESPIRATORY THERAPY [address] [place] [address], [place] * FIBTEM C (11/03/2024 1:58 AM EDT) FIBTEM C AMPLITUDE 5 MIN 12 5 - 16 mm 11/03/2024 1:58 AM EDT [facility] RESPIRAT[facility] THERAPY FIBTEM C AMPLITUDE 10 MIN 13 6 - 17 mm 11/03/2024 1:58 AM EDT [facility] RESPIRATORY THERAPY FIBTEM C AMPLITUDE 20 MIN 14 6 - 18 mm 11/03/2024 1:58 AM EDT [facility] RESPIRATORY THERAPY FIBTEM C MAXIMUM CLOT FIRMNESS 15 6 - 19 mm 11/03/2024 1:58 AM EDT [facility] RESPIRATORY THERAPY Blood 11/03/2024 1:58 AM EDT 11/03/2024 1:58 AM EDT Ky Ritter MD LAB BLOOD ORDERABLES Final Re sult Performing Organization Address City/[facility]/ZIP Co de Phone Number [facility] RESPIRATORY THERAPY [address] [place] [address], [place] * (ABNORMAL) CBC (11/03/2024 12:07 AM EDT) Auto WBC 7.71 4.00 - 10.60 10*3/uL 11/03/2024 12:41 AM EDT [facility] ([facility]) RBC 3.26(L) 3.80 - 5.00 10*6/uL 11/03/2024 12:41 AM EDT [facility] ([facility]) Hemoglobin 9.7(L) 12.0 - 15.0 g/dL 11/03/2024 12:41 AM EDT [facility] ([facility]) Hematocrit 29.0(L) 36.0 - 45.0 % 11/03/2024 12:41 AM EDT [facility] ([facility]) MCV 89.0 82.0 - 98.0 fL 11/03/2024 12:41 AM EDT [facility] ([facility]) MCH 29.8 27.0 - 33.0 pg 11/03/2024 12:41 AM EDT [facility] ([facility]) MCHC 33.4 32.0 - 35.0 g/dL 11/03/2024 12:41 AM EDT [facility] ([facility]) RDW 13.3 11.5 - 15.0 % 11/03/2024 12:41 AM EDT [facility] ([facility]) Platelets 216 150 - 400 10*3/uL 11/03/2024 12:41 AM EDT [facility] ([facility]) Blood Venous blood specimen / Unknown Existing Catheter / Unknown 11/03/2024 12:07 AM EDT 11/03/2024 12:33 AM EDT us Rosa Willoughby PA-C LAB BLOOD ORDERABLES Final R esult [facility]) [address] [place] [address] * Phosphorus (11/03/2024 12:07 AM EDT) Phosphorus 2.7 2.5 - 5.0 mg/dL 11/03/2024 12:57 AM EDT [facility]) Blood Venous blood specimen / Unknown Existing Catheter / Unknown 11/03/2024 12:07 AM EDT 11/03/2024 12:33 AM EDT us Rosa Willoughby PA-C LAB BLOOD ORDERABLES Final R esult Performing Organization Address City/[facility]/ZIP Co de Phone Number [facility] ([facility]) [address] [place], [place] [id number] * (ABNORMAL) Magnesium (11/03/2024 12:07 AM EDT) Magnesium 1.5(L) 1.9 - 2.7 mg/dL 11/03/2024 12:57 AM EDT [facility] ([facility]) Blood Venous blood specimen / Unknown Existing Catheter / Unknown 11/03/2024 12:07 AM EDT 11/03/2024 12:33 AM EDT Rosa Willoughby PA-C LAB BLOOD ORDERABLES Final R esult Performing Organization Address City/[facility]/ZIP Co de Phone Number [facility] ([facility]) [address] [place] [address] * (ABNORMAL) Basic metabolic panel (11/03/2024 12:07 AM EDT) Sodium 135(L) 136 - 145 mmol/L 11/03/2024 12:57 AM EDT [facility] ([facility]) Potassium 4.9 3.5 - 5.1 mmol/L 11/03/2024 12:57 AM EDT [facility] ([facility]) Chloride 110(H) 98 - 107 mmol/L 11/03/2024 12:57 AM EDT [facility] ([facility]) CO2 20(L) 21 - 31 mmol/L 11/03/2024 12:57 AM EDT [facility] ([facility]) BUN 8 7 - 25 mg/dL 11/03/2024 12:57 AM EDT [facility] ([facility]) Creatinine 0.53(L) 0.60 - 1.20 mg/dL 11/03/2024 12:57 AM EDT [facility] ([facility]) Glucose 168(H) 70 - 100 mg/dL 11/03/2024 12:57 AM EDT [facility] ([facility]) Calcium 7.6(L) 8.6 - 10.3 mg/dL 11/03/2024 12:57 AM EDT [facility] ([facility]) Anion Gap 10 7 - 20 mmol/L 11/03/2024 12:57 AM EDT [facility] ([facility]) eGFR 123.6 >60.0 mL/min/1. 73m*2 11/03/2024 12:57 AM EDT [facility] ([facility]) Comment:[facility] s estimated glomerular filtration rate (eGFR) [...] BUN/Creatinine Ratio 15.1 10/16 12:57 AM EDT [facility] ([facility]) Blood Venous blood specimen / Unknown Existing Catheter / Unknown 11/03/2024 12:07 AM EDT 11/03/2024 12:33 AM EDT us Rosa Willoughby PA-C LAB BLOOD ORDERABLES Final R esult [facility]) [address] [place] [address] * Fibrinogen (11/03/2024 12:07 AM EDT) Fibrinogen 328 150 - 425 mg/dL 11/03/2024 12:53 AM EDT [facility]) Blood Venous blood specimen / Unknown Existing Catheter / Unknown 11/03/2024 12:07 AM EDT 11/03/2024 12:27 AM EDT us Jose Angel Fox MD LAB BLOOD ORDERABLES Final Resu lt [facility]) [address] [place] [address] * (ABNORMAL) Protime-INR (11/03/2024 12:07 AM EDT) [facility] Protime 14.9(H) 12.3 - 14.8 Seconds 11/03/2024 12:53 AM EDT [facility] ([facility]) INR 1.17(H) 0.90 - 1.10 11/03/2024 12:53 AM EDT [facility] ([facility]) Comment: ACC RECOMMENDED INR FOR WARFARIN THERAPY CONDITION INR [...] MD LAB BLOOD ORDERABLES Final Resu lt [facility] [address] [place] [address] * (ABNORMAL) POCT glucose meter (11/02/2024 10:48 PM EDT) [facility] Glucose POC 151(H) 70 - 105 mg/dL 11/02/2024 10:59 PM EDT [facility] ([facility]) Comment:[email or web address] Blood Capillary blood specimen / Unknown 11/02/2024 10:48 PM EDT 11/02/2024 10:59 PM EDT Narrative [facility] ([facility]) - 11/02/2024 10:59 PM EDT Waived Testing in the ED is performed under the ED CLIA certificate #[id number]. us Ky Ritter MD LAB BLOOD ORDERABLES Final Re sult Performing Organization Address City/[facility]/ZIP Co de Phone Number [facility] ([facility]) [address] [place] [address] * Transfuse RBC (11/02/2024 9:35 PM EDT) Tarik Mayers CAA BLOOD TRANSFUSION ORDERABLES Fi nal Result * Transfuse RBC (11/02/2024 9:32 PM EDT) Tarik Mayers CAA BLOOD TRANSFUSION ORDERABLES Fi nal Result * (ABNORMAL) POCT glucose meter (11/02/2024 8:30 PM EDT) [facility] Glucose POC 160(H) 70 - 105 mg/dL 11/02/2024 8:41 PM EDT [facility] ([facility]) Comment:[email or web address] Blood Capillary blood specimen / Unknown 11/02/2024 8:30 PM EDT 11/02/2024 8:41 PM EDT Narrative [facility] ([facility]) - 11/02/2024 8:41 PM EDT Waived Testing in the ED is performed under the ED CLIA certificate #[id number]. us Ky Ritter MD LAB BLOOD ORDERABLES Final Re sult Performing Organization Address City/[facility]/ZIP Co de Phone Number [facility] ([facility]) [address] [place] [address] * Prepare RBC: 1 Units (11/02/2024 8:05 PM EDT) PRODUCT CODE [id number] [facility] Unit Number [id number] [facility] Unit ABO O [facility] Unit Rh POS [facility] Crossmatch Interpretation COMP [facility] Dispense Status TR [facility] Blood Expiration Date [id number] [facility] Product Blood Type 5100 [facility] Unit Volume 300 ML [facility] BLO OD B[facility] Other 11/02/2024 8:05 PM EDT us Tomasa Disla MD BLOOD BANK PRODUCT ORDER JIN Final Result [facility] * Prepare RBC: 2 Units (11/02/2024 8:05 PM EDT) PRODUCT CODE [id number] [facility] Unit Number [id number] [facility] BLOOD [facility] Unit ABO O [facility] Unit Rh POS [facility] B[facility]OD [facility] Crossmatch Interpretation COMP [facility] Dispense Status TR [facility] Blood Expiration Date [facility] Product Blood Type 5100 [facility] Unit Volume 300 ML [facility] BLO OD BANK PRODUCT CODE [id number] [facility] Unit Number [id number] [facility] BLOOD [facility] Unit ABO O [facility] Unit Rh POS [facility] BLOOD [facility] Crossmatch Interpretation COMP [facility] Dispense Status TR [facility] Blood Expiration Date [id number] [facility] Product Blood Type 5100 [facility] B[facility] Other 11/02/2024 8:05 PM EDT us Wali Collins MD BLOOD BANK PRODUCT ORDERAB LES Final Result [facility] * Type and screen (11/02/2024 8:02 PM EDT) ABO Grouping O 11/02/2024 8:42 PM EDT [facility] Rh Type POS 11/02/2024 8:42 PM EDT [facility] Ab Scrn NEG 11/02/2024 8:42 PM EDT [facility] Blood Venous blood specimen / Unknown Existing Catheter / Unknown 11/02/2024 8:02 PM EDT 11/02/2024 8:02 PM EDT us Wali Collins MD LAB BLOOD BANK TEST ORDERA BLES Final Result [facility] BLOOD [facility] * (ABNORMAL) CBC (11/02/2024 8:02 PM EDT) Auto WBC 9.01 4.00 - 10.60 10*3/uL 11/02/2024 8:13 PM EDT [facility] ([facility]) RBC 3.18(L) 3.80 - 5.00 10*6/uL 11/02/2024 8:13 PM EDT [facility] ([facility]) Hemoglobin 9.4(L) 12.0 - 15.0 g/dL 11/02/2024 8:13 PM EDT [facility] ([facility]) Hematocrit 28.9(L) 36.0 - 45.0 % 11/02/2024 8:13 PM EDT [facility] ([facility]) MCV 90.9 82.0 - 98.0 fL 11/02/2024 8:13 PM EDT [facility] ([facility]) MCH 29.6 27.0 - 33.0 pg 11/02/2024 8:13 PM EDT [facility] ([facility]) MCHC 32.5 32.0 - 35.0 g/dL 11/02/2024 8:13 PM EDT [facility] ([facility]) RDW 13.2 11.5 - 15.0 % 11/02/2024 8:13 PM EDT [facility] ([facility]) Platelets 358 150 - 400 10*3/uL 11/02/2024 8:13 PM EDT [facility] ([facility]) Blood Venous blood specimen / Unknown Existing Catheter / Unknown 11/02/2024 8:02 PM EDT 11/02/2024 8:02 PM EDT Wali Collins MD LAB BLOOD ORDERABLES Final Result Performing Organization Address City/[facility]/ZIP Co de Phone Number [facility]) Milena FitzpatrickAlpenaBayhealth [facility] [place] [address] * Red Top (11/02/2024 8:00 PM EDT) Extra Tube Hold for add-ons. 11/02/2024 10:02 PM EDT [facility] ([facility]) Comment:Auto resulted. Blood Venous blood specimen / Unknown 11/02/2024 8:00 PM EDT 11/02/2024 8:19 PM EDT Ky Ritter MD LAB BLOOD ORDERABLES Final Re sult Performing Organization Address [facility]/ZIP Co de Phone Number [facility]) [place] [address] * (ABNORMAL) Activated clotting time (11/02/2024 4:43 PM EDT) Activated Clotting Time 176(H) 82 - 152 s 11/02/2024 5:54 PM EDT [facility] Blood Venous blood specimen / Unknown 11/02/2024 4:43 PM EDT 11/02/2024 5:54 PM EDT Ky Ritter MD LAB POINT OF CARE TE ST DOCKED DEVICE UNSOLICITED RESULTS Final Result Performing Organization Address City/[facility]/ZIP Co de Phone Number [facility]) [address] [place] [address] * (ABNORMAL) POCT activated clotting time manually [...] - 152 s 11/02/2024 5:54 PM EDT [facility] ([facility]) Blood Venous blood specimen / Unknown 11/02/2024 4:13 PM EDT 11/02/2024 5:54 PM EDT us Ky Ritter MD LAB POINT OF CARE TE ST DOCKED DEVICE UNSOLICITED RESULTS Final Result Performing Organization Address City/[facility]/ZIP Co de Phone Number [facility] ([facility]) [address] [place] [address] * (ABNORMAL) Activated clotting time (11/02/2024 2:56 PM EDT) Activated Clotting Time 227(H) 82 - 152 s 11/02/2024 3:02 PM EDT [facility] ([facility]) Blood Venous blood specimen / Unknown 11/02/2024 2:56 PM EDT 11/02/2024 3:02 PM EDT us Ky Ritter MD LAB POINT OF CARE TE ST DOCKED DEVICE UNSOLICITED RESULTS Final Result [facility] ([facility]) [address] [place], [place] [id number] * CORONARY ANGIOGRAPHY, ULTRASOUND - CORONARY, INSTANT [...] infiltrated over the right femoral artery. A 6-Afghan sheath was placed in right femoral artery. Coronary angiography was performed with a JL4 and then repeated after IC nitroglycerin 50 mcg x 2. At this time, it was apparent that the LAD had a moderate stenosis and IVUS and iFR were performed. Heparin anticoagulation was used for this procedure. ACT was maintained at >250 seconds. A 6 Afghan xb3 was engaged to the [place]. I [...] Activated clotting time (11/02/2024 2:24 PM EDT) [facility] Activated Clotting Time 339(H) 82 - 152 s 11/02/2024 2:28 PM EDT [facility] ([facility]) Blood Venous blood specimen / Unknown 11/02/2024 2:24 PM EDT 11/02/2024 2:28 PM EDT Ky Ritter MD LAB POINT OF CARE TE ST DOCKED DEVICE UNSOLICITED RESULTS Final Result [facility] ([facility]) [address] [place] [address] * ECG 12 lead (11/02/2024 1:18 PM EDT) [facility] Ventricular Rate 74 BPM GE MUSE Atrial Rate [address] Interval 138 ms GE MUSE QRS DURATION 84 ms GE MUSE QT Interval 454 ms GE MUSE QTC CALCULATION(BAZE TT) 503 ms GE MUSE P [place] 54 degrees GE MUSE R-[place] 41 degrees GE MUSE T Wave [place] 77 degrees GE MUSE 11/02/2024 1:02 PM [...] 47(H) <15 ng/L 11/02/2024 1:57 PM EDT [facility] ([facility]) Blood Venous blood specimen / Unknown Existing Catheter / Unknown 11/02/2024 1:01 PM EDT 11/02/2024 1:19 PM EDT us Ky Ritter MD LAB BLOOD ORDERABLES Final Re sult Performing Organization Address [facility] Co de Phone Number [facility]) [address] [place] [address] * (ABNORMAL) POCT glucose meter (11/02/2024 11:07 AM EDT) Glucose POC 115(H) 70 - 105 mg/dL 11/02/2024 11:18 AM EDT [facility] ([facility]) Comment:[email or web address] Blood Capillary blood specimen / Unknown 11/02/2024 11:07 AM EDT 11/02/2024 11:18 AM EDT Narrative [facility] ([facility]) - 11/02/2024 11:18 AM EDT Waived Testing in the ED is performed under the ED CLIA certificate #[id number]. us Ky Ritter MD LAB BLOOD ORDERABLES Final Re sult Performing Organization Address [facility]/ZIP Co de Phone Number [facility]) [address], [place] [id number] * (ABNORMAL) POCT glucose meter (11/02/2024 7:31 AM EDT) Pathologist [facility] Glucose POC 150(H) 70 - 105 mg/dL 11/02/2024 7:42 AM EDT [facility] Comment:[email or web address] Blood Capillary blood specimen / Unknown 11/02/2024 7:31 AM EDT 11/02/2024 7:42 AM EDT Narrative [facility]) - 11/02/2024 7:42 AM EDT Waived Testing in the ED is performed under the ED CLIA certificate #[id number]. us Ky Ritter MD LAB BLOOD ORDERABLES Final Re sult Performing Organization Address [facility]/ZIP Co de Phone Number [facility]) [address] [place] [address] * Light Green Top (11/02/2024 6:15 AM EDT) [facility] Extra Tube Hold for add-ons. 11/02/2024 8:01 AM EDT [facility] ([facility]) Comment:Auto resulted. Blood Venous blood specimen / Unknown Existing Catheter / Unknown 11/02/2024 6:15 AM EDT 11/02/2024 6:38 AM EDT us Ky Ritter MD LAB BLOOD ORDERABLES Final Re sult Performing Organization Address City/[facility]/ZIP Co de Phone Number [facility]) [address], [place] [id number] * (ABNORMAL) CBC (11/02/2024 6:15 AM EDT) Pathologist [facility] Auto WBC 4.49 4.00 - 10.60 10*3/uL 11/02/2024 7:18 AM EDT [facility] ([facility]) RBC 3.69(L) 3.80 - 5.00 10*6/uL 11/02/2024 7:18 AM EDT [facility] ([facility]) Hemoglobin 10.8(L) 12.0 - 15.0 g/dL 11/02/2024 7:18 AM EDT [facility] ([facility]) Hematocrit 33.3(L) 36.0 - 45.0 % 11/02/2024 7:18 AM EDT [facility] ([facility]) MCV 90.2 82.0 - 98.0 fL 11/02/2024 7:18 AM EDT [facility] ([facility]) MCH 29.3 27.0 - 33.0 pg 11/02/2024 7:18 AM EDT [facility]) MCHC 32.4 32.0 - 35.0 g/dL 11/02/2024 7:18 AM EDT [facility]) RDW 13.4 11.5 - 15.0 % 11/02/2024 7:18 AM EDT [facility]) Platelets 292 150 - 400 10*3/uL 11/02/2024 7:18 AM EDT [facility] Blood Venous blood specimen / Unknown 11/02/2024 6:15 AM EDT 11/02/2024 6:37 AM EDT us Debbie Luna [facility] LAB BLOOD ORDERABLES Final Resu lt [facility] ([facility]) [address] [place] [address] * (ABNORMAL) POCT glucose meter (11/01/2024 8:42 PM EDT) Glucose POC 106(H) 70 - 105 mg/dL 11/01/2024 8:54 PM EDT [facility] ([facility]) Comment: Blood Capillary blood specimen / Unknown 11/01/2024 8:42 PM EDT 11/01/2024 8:54 PM EDT Narrative [facility] - 11/01/2024 8:54 PM EDT Waived Testing in the ED is performed under the ED CLIA certificate #[id number]. us Ky Ritter MD LAB BLOOD ORDERABLES Final Re sult Performing Organization Address City/[facility]/ZIP Co de Phone Number [facility]) [address] [place] [address] * POCT glucose meter (11/01/2024 6:04 PM EDT) Glucose POC 102 70 - 105 mg/dL 11/01/2024 6:20 PM EDT [facility] Comment:[email or web address] Blood Capillary blood specimen / Unknown 11/01/2024 6:04 PM EDT 11/01/2024 6:20 PM EDT Narrative [facility]) - 11/01/2024 6:20 PM EDT Waived Testing in the ED is performed under the ED CLIA certificate #[id number]. us Ky Ritter MD LAB BLOOD ORDERABLES Final Re sult Performing Organization Address [facility] Co de Phone Number [facility]) [address] [place] [address] * (ABNORMAL) Activated clotting time (11/01/2024 4:36 PM EDT) Activated Clotting Time 160(H) 82 - 152 s 11/02/2024 12:11 PM EDT [facility] Blood Venous blood specimen / Unknown 11/01/2024 4:36 PM EDT 11/02/2024 12:11 PM EDT us Ky Ritter MD LAB POINT OF CARE TE ST DOCKED DEVICE UNSOLICITED RESULTS Final Result Performing Organization Address City/[facility]/ZIP Co de Phone Number [facility] [address] [place] [address] * (ABNORMAL) POCT activated clotting time docked device (11/01/2024 4:33 PM EDT) Activated Clotting Time POC 160(A) 82 - 152 sec [facility] Blood 11/01/2024 4:33 PM EDT us Ky Ritter MD LAB POINT OF CARE TEST DOCKED DEVICE ORDERABLES Final Result [facility] [address] [place] [address] * CORONARY ANGIOGRAPHY, ULTRASOUND - CORONARY (11/01/2024 [...] on TPN presents a direct admission from [facility] with chief complaint of chest pain. She [...] infiltrated over the right femoral artery. A 5-Afghan Terumo sheath was placed in right femoral [...] was maintained at >250 seconds. A 5 Afghan Cordis XB 3.0 guide was engaged to the left main. I decided to proceed with IVUS. I then advanced a Runthrough wire to the distal left anterior descending. Next, I advanced a Endomondo IVUS catheter. IVUS imaging was performed and [...] Activated clotting time (11/01/2024 1:27 PM EDT) Pathologist [facility] Activated Clotting Time 332(H) 82 - 152 s 11/01/2024 1:37 PM EDT [facility] Blood Venous blood specimen / Unknown 11/01/2024 1:27 PM EDT 11/01/2024 1:36 PM EDT Ky Ritter MD LAB POINT OF CARE TE ST DOCKED DEVICE UNSOLICITED RESULTS Final Result [facility] [address] [place] [address] * (ABNORMAL) Activated clotting time (11/01/2024 1:14 PM EDT) Activated Clotting Time 222(H) 82 - 152 s 11/01/2024 1:19 PM EDT [facility] ([facility]) Blood Venous blood specimen / Unknown 11/01/2024 1:14 PM EDT 11/01/2024 1:19 PM EDT Ky Ritter MD LAB POINT OF CARE TE ST DOCKED DEVICE UNSOLICITED RESULTS Final Result [facility] [address] [place] [address] * ECG 12 lead (11/01/2024 12:09 PM EDT) Ventricular Rate 76 BPM GE MUSE Atrial Rate [address] Interval 132 ms GE MUSE QRS DURATION 84 ms GE MUSE QT Interval 444 ms GE MUSE QTC CALCULATION(BAZE TT) 499 ms GE MUSE P [place] 72 degrees GE MUSE R-[place] 50 degrees GE MUSE T Wave [place] 89 degrees GE MUSE 11/01/2024 11:5 7 AM EDT 11/01/2024 11:37 PM EDT Impressions [facility] - 11/01/2024 11:37 PM EDT Normal sinus rhythm T ciro, consider anterior and high lateral ischemia Prolonged QT Abnormal ECG Confirmed by Griffin Diaz ([id number]) on 11/01/2024 11:37:39 PM Narrative Procedure Note Jonelle Harrison MD - 11/01/2024 IMPRESSION: Normal sinus rhythm T cahnges, consider anterior and high lateral ischemia Prolonged QT Abnormal ECG Confirmed by Griffin Diaz ([id number]) on 11/01/2024 11:37:39 PM us Ky Ritter MD ECG ORDERABLES Final Result [facility] * (ABNORMAL) POCT glucose meter (11/01/2024 11:30 AM EDT) Glucose POC 109(H) 70 - 105 mg/dL 11/01/2024 12:44 PM EDT [facility] Comment:[email or web address] Blood Capillary blood specimen / Unknown 11/01/2024 11:30 AM EDT 11/01/2024 12:44 PM EDT Narrative [facility]) - 11/01/2024 12:44 PM EDT Waived Testing in the ED is performed under the ED CLIA certificate #[id number]. us Ky Ritter MD LAB BLOOD ORDERABLES Final Re sult [facility]) [address] [place] [address] * (ABNORMAL) Basic metabolic panel (11/01/2024 10:10 AM EDT) Sodium 137 136 - 145 mmol/L 11/01/2024 10:50 AM EDT [facility]) Potassium 4.6 3.5 - 5.1 mmol/L 11/01/2024 10:50 AM EDT [facility]) Chloride 106 98 - 107 mmol/L 11/01/2024 10:50 AM EDT [facility]) CO2 27 21 - 31 mmol/L 11/01/2024 10:50 AM EDT [facility]) BUN 9 7 - 25 mg/dL 11/01/2024 10:50 AM EDT [facility]) Creatinine 0.53(L) 0.60 - 1.20 mg/dL 11/01/2024 10:50 AM EDT [facility]) Glucose 98 70 - 100 mg/dL 11/01/2024 10:50 AM EDT [facility]) Calcium 8.6 8.6 - 10.3 mg/dL 11/01/2024 10:50 AM EDT [facility] Anion Gap 9 7 - 20 mmol/L 11/01/2024 10:50 AM EDT [facility]) eGFR 123.6 >60.0 mL/min/1. 73m*2 11/01/2024 10:50 AM EDT [facility]) Comment:[facility] s estimated glomerular filtration rate (eGFR) [...] BUN/Creatinine Ratio 17.0 10/16 10:50 AM EDT [facility] Blood Venous blood specimen / Unknown Existing Catheter / Unknown 11/01/2024 10:10 AM EDT 11/01/2024 10:25 AM EDT us Ky Ritter MD LAB BLOOD ORDERABLES Final Re sult [facility]) [address] [place] [address] * (ABNORMAL) CBC (11/01/2024 10:10 AM EDT) Auto WBC 4.80 4.00 - 10.60 10*3/uL 11/01/2024 10:40 AM EDT [facility] RBC 3.87 3.80 - 5.00 10*6/uL 11/01/2024 10:40 AM EDT [facility]) Hemoglobin 11.3(L) 12.0 - 15.0 g/dL 11/01/2024 10:40 AM EDT [facility]) Hematocrit 34.6(L) 36.0 - 45.0 % 11/01/2024 10:40 AM EDT [facility]) MCV 89.4 82.0 - 98.0 fL 11/01/2024 10:40 AM EDT [facility]) MCH 29.2 27.0 - 33.0 pg 11/01/2024 10:40 AM EDT [facility]) MCHC 32.7 32.0 - 35.0 g/dL 11/01/2024 10:40 AM EDT [facility]) RDW 13.2 11.5 - 15.0 % 11/01/2024 10:40 AM EDT [facility]) Platelets 300 150 - 400 10*3/uL 11/01/2024 10:40 AM EDT [facility] Blood Venous blood specimen / Unknown Existing Catheter / Unknown 11/01/2024 10:10 AM EDT 11/01/2024 10:25 AM EDT Ky Ritter MD LAB BLOOD ORDERABLES Final Re sult [facility]) [address] [place] [address] * (ABNORMAL) POCT glucose meter (11/01/2024 7:43 AM EDT) [facility] Signature Glucose POC 162(H) 70 - 105 mg/dL 11/01/2024 7:55 AM EDT [facility] Comment:[email or web address] Blood Capillary blood specimen / Unknown 11/01/2024 7:43 AM EDT 11/01/2024 7:55 AM EDT Narrative [facility]) - 11/01/2024 7:55 AM EDT Waived Testing in the ED is performed under the ED CLIA certificate #[id number]. Ky Ritter MD LAB BLOOD ORDERABLES Final Re sult Performing Organization Address City/[facility]/ZIP Co de Phone Number [facility]) [address] [place] [address] * (ABNORMAL) High Sensitivity Troponin I (11/01/2024 6:42 AM EDT) [facility] High Sensitivity Troponin I 19(H) <15 ng/L 11/01/2024 7:02 AM EDT [facility] Blood Venous blood specimen / Unknown Existing Catheter / Unknown 11/01/2024 6:42 AM EDT 11/01/2024 6:42 AM EDT Debbie Cheryl CAMPOS LAB BLOOD ORDERABLES Final Resu lt Performing Organization Address [facility] Co de Phone Number [facility]) [address] [place] [phone] * (ABNORMAL) Anti-Xa (Heparin Level) (11/01/2024 6:04 AM EDT) [facility] Anti-Xa (Heparin) 0.27(L) 0.3 - 0.7 IU/mL 11/01/2024 6:37 AM EDT [facility]) Comment:Rivaroxaban and Apix aban will interfere with the anti Xa assay used to monitor UFH and LMWH. Blood Blood sample taken from central line / Unknown Existing Catheter / Unknown 11/01/2024 6:04 AM EDT 11/01/2024 6:15 AM EDT Ky Ritter MD LAB BLOOD ORDERABLES Final Re sult Performing Organization Address City/[facility]/ZIP Co de Phone Number [facility]) [address] [place] [address] * (ABNORMAL) POCT glucose meter (11/01/2024 6:02 AM EDT) [facility] Glucose POC 114(H) 70 - 105 mg/dL 11/01/2024 6:13 AM EDT [facility] Comment:[email or web address] Blood Capillary blood specimen / Unknown 11/01/2024 6:02 AM EDT 11/01/2024 6:13 AM EDT Narrative [facility]) - 11/01/2024 6:13 AM EDT Waived Testing in the ED is performed under the ED CLIA certificate #[id number]. us Ky Ritter MD LAB BLOOD ORDERABLES Final Re sult [facility]) [address] [place] [id number] * (ABNORMAL) Toxicology Screen, Urine (11/01/2024 2:12 AM EDT) Barbiturates Negative Negative 11/01/2024 2:57 AM EDT [facility] Benzodiazepines Positive(A) Negative 11/02/19 25 2:57 AM EDT [facility] Propoxyphene Negative Negative 11/01/2024 2:57 AM EDT [facility] Methadone Negative Negative 11/01/2024 2:57 AM EDT [facility] Tricyclics Negative Negative 11/01/2024 2:57 AM EDT [facility] Phencyclidine Negative Negative 11/01/2024 2:57 AM EDT [facility] Opiates Positive(A) Negative 11/01/2024 2:57 AM EDT [facility] Cocaine Negative Negative 11/01/2024 2:57 AM EDT [facility]) Amphetamines/Metha mphetamine Negative Negative 11/01/2024 2:57 AM EDT [facility] Cannabinoid Negative Negative 11/01/2024 2:57 AM EDT [facility] Urine Urine specimen obtained by clean catch procedure / Unknown Non-blood Collection / Unknown 11/01/2024 2:12 AM EDT 11/01/2024 2:18 AM EDT Narrative [facility]) - 11/01/2024 2:57 AM EDT Unconfirmed screening results should only be used for medical purposes. Ky Ritter MD LAB URINE ORDERABLES Final Re sult Performing Organization Address [facility] Co de Phone Number [facility]) [address] [place] [address] * POCT glucose meter (10/31/2024 8:20 PM EDT) [facility] Signature Glucose POC 90 70 - 105 mg/dL 10/31/2024 8:33 PM EDT [facility] Comment:[email or web address] Blood Capillary blood specimen / Unknown 10/31/2024 8:20 PM EDT 10/31/2024 8:33 PM EDT Narrative [facility] - 10/31/2024 8:33 PM EDT Waived Testing in the ED is performed under the ED CLIA certificate #[id number]. Ky Ritter MD LAB BLOOD ORDERABLES Final Re sult Performing Organization Address [facility] de Phone Number [facility] [address] [place] [id number] * CORONARY ANGIOGRAPHY, LEFT HEART CATH (10/31/2024 [...] informed consent. she was brought to the biology laboratory assistant in a fasting state. The left wrist area was prepped and draped in usual fashion. Micropuncture technique was used for access in the radial artery. A 5-Afghan x 11 cm sheath was placed. Verapamil was given through the sheath, and heparin was administered intravenously. A 5 Afghan JR4 diagnostic catheter was advanced and this [...] catheter was then downsized to a 4 Afghan JR4 diagnostic catheter however this also was not able to engage the right coronary artery. Catheter was exchanged to a JR4 diagnostic catheter which could not engage the left coronary artery. Catheter was exchanged to a 4 Afghan JL 3.5 diagnostic catheter which eventually was able to engage the left coronary artery. Angiography was performed in multiple views. Catheter was exchanged over the wire to a 4 Afghan 3DRC catheter. Multiple attempts were made to [...] Study Details NSTEMI (non-ST elevated myocardial infarction) ([facility]) [I21.4] us Ky Ritter MD CV CARDIAC CATH PROCEDURES Fi nal Result * POCT glucose meter (10/31/2024 11:55 AM EDT) [facility] Signature Glucose POC 82 70 - 105 mg/dL 10/31/2024 12:06 PM EDT [facility] Comment:[email or web address] Blood Capillary blood specimen / Unknown 10/31/2024 11:55 AM EDT 10/31/2024 12:06 PM EDT Narrative [facility] - 10/31/2024 12:06 PM EDT Waived Testing in the ED is performed under the ED CLIA certificate #[id number]. us Ky Ritter MD LAB BLOOD ORDERABLES Final Re sult [facility]) [address] [place] [address] * LIMITED ECHO (TTE) W/ COLOR FLOW AND IMAGING AGENT (10/31/2024 11:40 AM EDT) Anatomical Region Laterality Modality Other 10/31/2024 11:1 6 AM EDT Narrative 10/31/2024 12:44 PM EDT 1 1 [facility] Heart Station [address] [place] [address] [phone] (fax) Echocardiogram-[facility] Name: JUAN KONG Study Date: 10/31/2024 11:16 AM B/P: 106 mmHg/67 mmHg HR: 70 bpm Date of : 1990 Location: [facility] Height: 66 in. Age: 34 year(s) Patient [...] minimal pericardial effusion. Procedure Staff Reading Group: [facility] Director Of Agriculture: DAVID Kearney, RDCS Ordering Physician: KY RITTER Wall Motion Scores -1 - hyperkinesia, 0 - not evaluated, 1 - normal, 2 - hypokinesia, 3 - akinesia, 4 - dyskinesia Procedure Note Mitul Moya MD - 10/31/2024 1 1 [facility] [address] [place] [address] [phone] (fax) Echocardiogram-[facility] Name: JUAN KONG Study Date: 10/31/2024 11:16 AM B/P: 106 mmHg/67 mmHg HR: 70 bpm Date of : 1990 Location: [facility] Height: 66 in. Age: 34 year(s) Patient [...] minimal pericardial effusion. Procedure Staff Reading Group: [facility] Director Of Agriculture: DAVID Kearney, RDCS Ordering Physician: KY RITTER Wall Motion Scores -1 - hyperkinesia, 0 - not evaluated, 1 - normal, 2 - hypokinesia, 3 - akinesia, 4 - dyskinesia us Ky Ritter MD CV ECHO PROCEDURES Final Resu lt * ECG 12 lead (10/31/2024 8:47 AM EDT) [facility] Ventricular Rate 69 BPM GE MUSE Atrial Rate [address] Interval 146 ms GE MUSE QRS DURATION 86 ms GE MUSE QT Interval 460 ms GE MUSE QTC CALCULATION(BAZE TT) 492 ms GE MUSE P [place] 56 degrees GE MUSE R-[place] 55 degrees GE MUSE T Wave [place] 71 degrees GE MUSE 10/31/2024 8:43 AM [...] Griffin Diaz ([id number]) on 10/31/2024 10:36:38 PM us Ky Ritter MD ECG ORDERABLES Final Result GE MUSE * ECG 12 lead (10/31/2024 8:25 AM EDT) Ventricular Rate 70 BPM GE MUSE Atrial Rate [address] Interval 148 ms GE MUSE QRS DURATION 86 ms GE MUSE QT Interval 460 ms GE MUSE QTC CALCULATION(BAZE TT) 496 ms GE MUSE P [place] 61 degrees GE MUSE R-[place] 59 degrees GE MUSE T Wave [place] 77 degrees GE MUSE 10/31/2024 8:15 AM [...] POCT glucose meter (10/31/2024 7:22 AM EDT) Pathologist [facility] Glucose POC 87 70 - 105 mg/dL 10/31/2024 7:33 AM EDT [facility] Comment:[email or web address] Blood Capillary blood specimen / Unknown 10/31/2024 7:22 AM EDT 10/31/2024 7:33 AM EDT Narrative [facility] - 10/31/2024 7:33 AM EDT Waived Testing in the ED is performed under the ED CLIA certificate #[id number]. Ky Ritter MD LAB BLOOD ORDERABLES Final Re sult Performing Organization Address City/[facility]/ZIP Co de Phone Number [facility] [address] [place] [address] * Hemoglobin A1c (10/31/2024 6:27 AM EDT) Pathologist [facility] Hemoglobin A1C 4.5 4.0 - 6.0 % 10/31/2024 1:13 PM EDT [facility] Estimated Average Glucose 82 mg/dL 10/31/2024 1:13 PM EDT [facility] Blood Blood sample taken from central line / Unknown Existing Catheter / Unknown 10/31/2024 6:27 AM EDT 10/31/2024 7:01 AM EDT Ky Ritter MD LAB BLOOD ORDERABLES Final Re sult Performing Organization Address [facility]/ZIP Co de Phone Number [facility] [address] [place] [address] * (ABNORMAL) Lipid panel (10/31/2024 6:27 AM EDT) Pathologist [facility] Triglycerides 84 <150 mg/dL 10/31/2024 9:31 AM EDT [facility] Comment: TRIGLYCERIDE REFERENCE RANGE: 20 YEARS AND OLDER CARDIOVASCULAR RISK LESS THAN 150 mg/dL LOW RISK 150 TO 199 mg/dL BORDERLINE RISK 200 mg/dL AND GREATER HIGH RISK Cholesterol 116(L) 120 - 200 mg/dL 10/31/2024 9:31 AM EDT [facility] LDL Calculated 56 0 - 160 mg/dL 10/31/2024 9:31 AM EDT [facility] HDL 43 23 - 92 mg/dL 10/31/2024 9:31 AM EDT [facility] Non HDL Cholesterol 73 10/31/2024 9:31 AM EDT [facility] Total VLDL-C 17 0 - 40 mg/dL 10/31/2024 9:31 AM EDT [facility] Cholesterol/HDL Ratio 2.7 mg/dL 10/31/2024 9:31 AM EDT [facility] Blood Blood sample taken from central line / Unknown Existing Catheter / Unknown 10/31/2024 6:27 AM EDT 10/31/2024 7:11 AM EDT Ky Ritter MD LAB BLOOD ORDERABLES Final Re sult Performing Organization Address City/[facility]/ZIP Co de Phone Number [facility] [address] [place] [address] * (ABNORMAL) Magnesium (10/31/2024 6:27 AM EDT) Magnesium 1.8(L) 1.9 - 2.7 mg/dL 10/31/2024 8:29 AM EDT [facility] Blood Blood sample taken from central line / Unknown Existing Catheter / Unknown 10/31/2024 6:27 AM EDT 10/31/2024 7:11 AM EDT Ky Ritter MD LAB BLOOD ORDERABLES Final Re sult Performing Organization Address City/[facility]/ZIP Co de Phone Number [facility]) [address] [place] [address] * Anti-Xa (Heparin Level) (10/31/2024 6:27 AM EDT) Anti-Xa (Heparin) 0.53 0.3 - 0.7 IU/mL 10/31/2024 7:27 AM EDT [facility] Comment:Rivaroxaban and Apix aban will interfere with the anti Xa assay used to monitor UFH and LMWH. Blood Blood sample taken from central line / Unknown Existing Catheter / Unknown 10/31/2024 6:27 AM EDT 10/31/2024 6:41 AM EDT Sandeep Casey MD LAB BLOOD ORDERABLES Final Resul t [facility]) [address] [place] [address] * (ABNORMAL) CBC (10/31/2024 6:27 AM EDT) Auto WBC 3.65(L) 4.00 - 10.60 10*3/uL 10/31/2024 7:19 AM EDT [facility] RBC 3.21(L) 3.80 - 5.00 10*6/uL 10/31/2024 7:19 AM EDT [facility] Hemoglobin 9.4(L) 12.0 - 15.0 g/dL 10/31/2024 7:19 AM EDT [facility] Hematocrit 29.2(L) 36.0 - 45.0 % 10/31/2024 7:19 AM EDT [facility]) MCV 91.0 82.0 - 98.0 fL 10/31/2024 7:19 AM EDT [facility]) MCH 29.3 27.0 - 33.0 pg 10/31/2024 7:19 AM EDT [facility]) MCHC 32.2 32.0 - 35.0 g/dL 10/31/2024 7:19 AM EDT [facility]) RDW 13.3 11.5 - 15.0 % 10/31/2024 7:19 AM EDT [facility]) Platelets 235 150 - 400 10*3/uL 10/31/2024 7:19 AM EDT [facility] Blood Blood sample taken from central line / Unknown Existing Catheter / Unknown 10/31/2024 6:27 AM EDT 10/31/2024 7:01 AM EDT us Debbie Luna [facility] LAB BLOOD ORDERABLES Final Resu lt [facility] [address] [place] [address] * (ABNORMAL) Basic metabolic panel (10/31/2024 6:27 AM EDT) Sodium 140 136 - 145 mmol/L 10/31/2024 7:52 AM EDT [facility] Potassium 4.0 3.5 - 5.1 mmol/L 10/31/2024 7:52 AM EDT [facility]) Chloride 110(H) 98 - 107 mmol/L 10/31/2024 7:52 AM EDT [facility] CO2 26 21 - 31 mmol/L 10/31/2024 7:52 AM EDT [facility] BUN 5(L) 7 - 25 mg/dL 10/31/2024 7:52 AM EDT [facility] Creatinine 0.60 0.60 - 1.20 mg/dL 10/31/2024 7:52 AM EDT [facility] Glucose 83 70 - 100 mg/dL 10/31/2024 7:52 AM EDT [facility] Calcium 7.7(L) 8.6 - 10.3 mg/dL 10/31/2024 7:52 AM T [facility] Anion Gap 8 7 - 20 mmol/L 10/31/2024 7:52 AM EDT [facility]) eGFR 120.0 >60.0 mL/min/1. 73m*2 10/31/2024 7:52 AM T [facility] Comment:[facility] s estimated glomerular filtration rate (eGFR) [...] BUN/Creatinine Ratio 8.3 10/16 7:52 AM EDT [facility] Blood Blood sample taken from central line / Unknown Existing Catheter / Unknown 10/31/2024 6:27 AM EDT 10/31/2024 7:11 AM EDT [facility] ([facility] BLOOD ORDERABLES Final Resu lt [facility]) [address] [place] [address] * (ABNORMAL) High Sensitivity Troponin I (10/31/2024 6:27 AM EDT) Pathologist [facility] High Sensitivity Troponin I 61(HH) <15 ng/L 10/31/2024 7:58 AM EDT [facility] Blood Blood sample taken from central line / Unknown Existing Catheter / Unknown 10/31/2024 6:27 AM EDT 10/31/2024 7:11 AM EDT [facility] LAB BLOOD ORDERABLES Final Resu lt Performing Organization Address City/[facility]/ZIP Co de Phone Number [facility]) [address] [place] [address] * Anti-Xa (Heparin Level) (10/31/2024 1:38 AM EDT) Anti-Xa (Heparin) 0.47 0.3 - 0.7 IU/mL 10/31/2024 2:03 AM EDT [facility]) Comment:Rivaroxaban and Apix aban will interfere with the anti Xa assay used to monitor UFH and LMWH. Blood Venous blood specimen / Unknown Existing Catheter / Unknown 10/31/2024 1:38 AM EDT 10/31/2024 1:42 AM EDT Sandeep Casey MD LAB BLOOD ORDERABLES Final Resul t Performing Organization Address [facility]/ZIP Co de Phone Number [facility] [address] [address] * (ABNORMAL) High Sensitivity Troponin I (10/31/2024 1:38 AM EDT) [facility] High Sensitivity Troponin I 129(HH) <15 ng/L 10/31/2024 2:33 AM EDT [facility] ([facility]) Blood Blood sample taken from central line / Unknown Existing Catheter / Unknown 10/31/2024 1:38 AM EDT 10/31/2024 1:44 AM EDT Debbie Luna CNP LAB BLOOD ORDERABLES Final Resu lt Performing Organization Address [facility] Co de Phone Number [facility] [address] [address] * POCT glucose meter (10/30/2024 9:12 PM EDT) [facility] Glucose POC 97 70 - 105 mg/dL 10/30/2024 9:23 PM EDT [facility]) Comment:[email or web address] Blood Capillary blood specimen / Unknown 10/30/2024 9:12 PM EDT 10/30/2024 9:23 PM EDT Narrative [facility]) - 10/30/2024 9:23 PM EDT Waived Testing in the ED is performed under the ED CLIA certificate #[id number]. Sandeep Casey MD LAB BLOOD ORDERABLES Final Resul t Performing Organization Address [facility] Co de Phone Number [facility]) [address] [place] [phone] * ECG 12 lead (10/30/2024 8:00 PM EDT) [facility] Ventricular Rate 83 BPM GE MUSE Atrial Rate [address] Interval 144 ms GE MUSE QRS DURATION 88 ms GE MUSE QT Interval 410 ms GE MUSE QTC CALCULATION(BAZE TT) 482 ms GE MUSE P [place] 62 degrees GE MUSE R-[place] 19 degrees GE MUSE T Wave [place] 56 degrees GE MUSE 10/30/2024 7:48 PM [...] Debbie Luna CNP ECG ORDERABLES Final Result GE MUSE * (ABNORMAL) Anti-Xa (Heparin Level) (10/30/2024 7:11 PM EDT) Anti-Xa (Heparin) <0.10(LL) 0.3 - 0.7 IU/mL 10/30/2024 8:27 PM EDT [facility] ([facility]) Comment:Rivaroxaban and Apix aban will interfere with the anti Xa assay used to monitor UFH and LMWH. Blood Venous blood specimen / Unknown Existing Catheter / Unknown 10/30/2024 7:11 PM EDT 10/30/2024 7:18 PM EDT Sandeep Casey MD LAB BLOOD ORDERABLES Final Resul t [facility] ([facility]) [address] [place] [address] * (ABNORMAL) aPTT - baseline (10/30/2024 7:11 PM EDT) Pathologist [facility] aPTT 42.0(H) 25.0 - 35.0 Seconds 10/30/2024 7:48 PM EDT [facility] Comment:Clinical significanc e of the APTT is questionable in the presence of heparin. Blood Venous blood specimen / Unknown Existing Catheter / Unknown 10/30/2024 7:11 PM EDT 10/30/2024 7:[address] LAB BLOOD ORDERABLES Final Resu lt [facility]) [address] [place] [address], [place] [id number] * TSH3 Reflex to FT4 (10/30/2024 7:11 PM EDT) [facility] TSH 3.46 0.34 - 5.60 mIU/L 10/30/2024 8:01 PM EDT [facility]) Blood Venous blood specimen / Unknown Existing Catheter / Unknown 10/30/2024 7:11 PM EDT 10/30/2024 7:18 PM EDT [facility] LAB BLOOD ORDERABLES Final Resu lt Performing Organization Address City/[facility]/ZIP Co de Phone Number [facility]) [address] [place] [address] * (ABNORMAL) CBC auto differential (10/30/2024 7:11 PM EDT) Pathologist [facility] Auto WBC 4.32 4.00 - 10.60 10*3/uL 10/30/2024 7:51 PM EDT [facility]) RBC 3.30(L) 3.80 - 5.00 10*6/uL 10/30/2024 7:51 PM EDT [facility]) Hemoglobin 9.7(L) 12.0 - 15.0 g/dL 10/30/2024 7:51 PM EDT [facility]) Hematocrit 29.6(L) 36.0 - 45.0 % 10/30/2024 7:51 PM EDT [facility] ([facility]) MCV 89.7 82.0 - 98.0 fL 10/30/2024 7:51 PM EDT [facility] ([facility]) MCH 29.4 27.0 - 33.0 pg 10/30/2024 7:51 PM EDT [facility] ([facility]) MCHC 32.8 32.0 - 35.0 g/dL 10/30/2024 7:51 PM EDT [facility] ([facility]) RDW 13.4 11.5 - 15.0 % 10/30/2024 7:51 PM EDT [facility] ([facility]) Neutrophils % 44.2 40.0 - 72.0 % 10/30/2024 7:51 PM EDT [facility] ([facility]) Lymphocytes % 44.9 20.0 - 45.0 % 10/30/2024 7:51 PM EDT [facility] ([facility]) Monocytes % 7.9 5.0 - 12.0 % 10/30/2024 7:51 PM EDT [facility] ([facility]) Eosinophils % 2.1 0.0 - 6.0 % 10/30/2024 7:51 PM EDT [facility] ([facility]) Basophils % 0.9 0.0 - 1.0 % 10/30/2024 7:51 PM EDT [facility] ([facility]) Neutrophils Absolute 1.91 1.60 - 7.60 10*3/uL 10/30/2024 7:51 PM EDT [facility] ([facility]) Lymphocytes Absolute 1.94 1.20 - 4.00 10*3/uL 10/30/2024 7:51 PM EDT [facility] ([facility]) Monocytes Absolute 0.34 0.10 - 1.00 10*3/uL 10/30/2024 7:51 PM EDT [facility] ([facility]) Eosinophils Absolute 0.09 0.00 - 0.50 10*3/uL 10/30/2024 7:51 PM EDT [facility] ([facility]) Basophils Absolute 0.04 0.00 - 0.20 10*3/uL 10/30/2024 7:51 PM EDT [facility] ([facility]) Platelets 272 150 - 400 10*3/uL 10/30/2024 7:51 PM EDT [facility] ([facility]) nRBC % 0.0 0 % 10/30/2024 7:51 PM EDT [facility] ([facility]) Immature Granulocytes % 0.0 0.0 - 1.0 % 10/30/2024 7:51 PM EDT [facility] ([facility]) Immature Granulocytes Absolute 0.00 0.00 - 0.20 10*3/uL 10/30/2024 7:51 PM EDT [facility] ([facility]) Blood Venous blood specimen / Unknown Existing Catheter / Unknown 10/30/2024 7:11 PM EDT 10/30/2024 7:[address] [facility] BLOOD ORDERABLES Final Resu lt [facility]) [address] [place] [address] * B-type natriuretic peptide (10/30/2024 7:11 PM EDT) BNP 77 0 - 100 pg/mL 10/30/2024 7:49 PM EDT [facility]) Blood Venous blood specimen / Unknown Existing Catheter / Unknown 10/30/2024 7:11 PM EDT 10/30/2024 7:[address] [facility] LAB BLOOD ORDERABLES Final Resu lt [facility]) [address] [place] [address] * (ABNORMAL) Protime-INR (10/30/2024 7:11 PM EDT) Protime 14.8 12.3 - 14.8 Seconds 10/30/2024 7:47 PM EDT [facility] ([facility]) INR 1.15(H) 0.90 - 1.10 10/30/2024 7:47 PM EDT [facility]) Comment: ACC RECOMMENDED INR FOR WARFARIN THERAPY CONDITION INR [...] 7:11 PM EDT 10/30/2024 7:18 PM EDT [facility] LAB BLOOD ORDERABLES Final Resu lt [facility]) [address], [place] [id number] * Phosphorus (10/30/2024 7:11 PM EDT) Phosphorus 4.4 2.5 - 5.0 mg/dL 10/30/2024 7:46 PM EDT [facility] ([facility]) Blood Venous blood specimen / Unknown Existing Catheter / Unknown 10/30/2024 7:11 PM EDT 10/30/2024 7:18 PM EDT [facility] LAB BLOOD ORDERABLES Final Resu lt Performing Organization Address City/[facility]/ZIP Co de Phone Number [facility] ([facility]) [address], [place] [phone] * (ABNORMAL) HIGH SENSITIVITY TROPONIN I (10/30/2024 7:11 PM EDT) [facility] High Sensitivity Troponin I 337(HH) <15 ng/L 10/30/2024 7:53 PM EDT [facility] ([facility]) Blood Venous blood specimen / Unknown Existing Catheter / Unknown 10/30/2024 7:11 PM EDT 10/30/2024 7:[address] [facility] LAB BLOOD ORDERABLES Final Resu lt Performing Organization Address [facility]/ZIP Co de Phone Number [facility] ([facility]) [address], [place] [phone] * (ABNORMAL) Magnesium (10/30/2024 7:11 PM EDT) [facility] Magnesium 1.7(L) 1.9 - 2.7 mg/dL 10/30/2024 7:46 PM EDT [facility] ([facility]) Blood Venous blood specimen / Unknown Existing Catheter / Unknown 10/30/2024 7:11 PM EDT 10/30/2024 7:[address] [facility] LAB BLOOD ORDERABLES Final Resu lt Performing Organization Address City/[facility]/ZIP Co de Phone Number [facility] ([facility]) [address] [place] [address] * (ABNORMAL) Comprehensive metabolic panel (10/30/2024 7:11 PM EDT) [facility] Sodium 139 136 - 145 mmol/L 10/30/2024 7:46 PM EDT [facility] ([facility]) Potassium 3.7 3.5 - 5.1 mmol/L 10/30/2024 7:46 PM EDT [facility] ([facility]) Chloride 110(H) 98 - 107 mmol/L 10/30/2024 7:46 PM EDT [facility] ([facility]) CO2 23 21 - 31 mmol/L 10/30/2024 7:46 PM T [facility] ([facility]) Anion Gap 10 7 - 20 mmol/L 10/30/2024 7:46 PM T [facility] ([facility]) BUN 5(L) 7 - 25 mg/dL 10/30/2024 7:46 PM T [facility] ([facility]) Creatinine 0.64 0.60 - 1.20 mg/dL 10/30/2024 7:46 PM T [facility] ([facility]) BUN/Creatinine Ratio 7.8 10/16 7:46 PM T [facility] ([facility]) Glucose 101(H) 70 - 100 mg/dL 10/30/2024 7:46 PM T [facility] ([facility]) Calcium 7.8(L) 8.6 - 10.3 mg/dL 10/30/2024 7:46 PM T [facility] ([facility]) AST 19 13 - 39 U/L 10/30/2024 7:46 PM T [facility] ([facility]) ALT (SGPT) 7 7 - 52 U/L 10/30/2024 7:46 PM [facility] ([facility]) Alkaline Phosphatase 45 34 - 104 U/L 10/30/2024 7:46 PM [facility] ([facility]) Total Protein 5.0(L) 6.0 - 8.3 g/dL 10/30/2024 7:46 PM [facility] ([facility]) Albumin 3.2(L) 3.5 - 5.7 g/dL 10/30/2024 7:46 PM T [facility] ([facility]) Total Bilirubin 0.2(L) 0.3 - 1.0 mg/dL 10/30/2024 7:46 PM [facility] ([facility]) eGFR 118.1 >60.0 mL/min/1. 73m*2 10/30/2024 7:46 PM T [facility] ([facility]) Comment:[facility] s estimated glomerular filtration rate [...] PM EDT 10/30/2024 7:18 PM EDT Debbie Mahmoodcarlee [facility] LAB BLOOD ORDERABLES Final Resu lt [facility] ([facility]) [address] [place] [address] documented in this encounter Visit Diagnoses Diagnosis [...] on ECG Nonspecific abnormal electrocardiogram (ECG) (EKG) NSTEMI (non-ST elevated myocardial infarction) (CMS/HCC) Acute myocardial infarction, subendocardial infarction, episode of care unspecified NSTEMI (non-ST elevated myocardial infarction) (CMS/HCC) Acute myocardial infarction, subendocardial infarction, episode of care unspecified Angina pectoris, unstable (CMS/HCC) Intermediate coronary syndrome Spontaneous dissection of coronary artery documented in this encounter Admitting Diagnoses Diagnosis Chest pain Unspecified chest pain NSTEMI (non-ST elevated myocardial infarction) ([facility]) Acute myocardial infarction, subendocardial infarction, episode of [...] 6:06 AM EDT 159 mL/ hr aspirin EC tablet 81 mg 81 mg, oral, Daily, First dose on Wed11/03/24 at 1300, For 99 days, Do not crush, chew, or split. Given 11/07/2024 9:00 AM EDT 81 mg Given 11/06/2024 9:33 AM EDT 81 mg Given 11/05/2024 10:21 AM EDT 81 mg aspirin tablet As needed, Starting on Wed10/31/24 at 1838, Intraprocedure Given 10/31/2024 6:38 PM EDT 325 mg clopidogrel (Plavix) tablet 75 mg 75 [...] feeding bolus) Given 10/31/2024 12:28 PM EDT 25 g diphenhydrAMINE (BENADryl) injection 50 mg 50 mg, [...] EDT 30 mg Le ft Lower Abdomen escitalopram (Lexapro) tablet 20 mg 20 mg, [...] EDT 1 patch Other fentaNYL (Sublimaze) injection As needed, Starting on Wed10/31/24 at 1850, Intraprocedure Given 10/31/2024 7:05 PM EDT 50 mcg Given 10/31/2024 6:55 PM EDT 25 mcg Given 10/31/2024 6:50 PM EDT 25 mcg glucose chewable tablet 24 g 24 [...] or tube feeding bolus) heparin (porcine) injection As needed, Starting on Wed10/31/24 at 1901, Intraprocedure Given 10/31/2024 7:01 PM EDT 4,000 Units HYDROcodone-acetaminophen (Finley) 5-325 mg per tablet 1 tablet 1 tablet, oral, Every 4 hours PRN, moderate pain (4-7 pain score), Starting on Wed11/02/24 at 1331, For 96 days Given 11/03/2024 10:11 AM EDT 1 tablet HYDROcodone-acetaminophen (Finley) 5-325 mg per tablet 2 tablet 2 tablet, oral, Every 4 hours PRN, severe pain (8-10 pain score), Starting on Wed11/02/24 at 1331, For 96 days Given 11/07/2024 2:49 PM EDT 2 tablet s Given 11/07/2024 9:09 AM EDT 2 tablets Given 11/06/2024 1:00 PM EDT 2 tablets hydrocortisone (Cortef) tablet 10 mg 10 mg, oral, Daily, First dose on Wed10/31/24 at 1000, For 99 days Given 11/07/2024 8:55 AM EDT 10 mg Given 11/06/2024 9:34 AM EDT 10 mg Given 11/05/2024 10:22 AM EDT 10 mg insulin lispro (HumaLOG) injection 0-4 Units [...] BG greater than 400 instructions: Call Physician iodixanol (VISIPaque) 320 mg iodine/mL injection As needed, Starting on Wed10/31/24 at 1936, Intraprocedure Given 10/31/2024 7:36 PM EDT 70 mL levothyroxine (Synthroid, Levoxyl) tablet 75 mcg [...] Given 11/05/2024 10:22 AM EDT 5 mcg melatonin tablet 5 [...] 92 doses, Do not crush or chew. midazolam (Versed) injection As needed, Starting on Wed10/31/24 at 1850, Intraprocedure Given 10/31/2024 6:55 PM EDT 1 mg Given 10/31/2024 6:50 PM EDT 1 mg mirtazapine (Remeron) tablet 45 mg 45 mg, oral, Nightly, First dose (after last modification) on Wed11/03/24 at 2200, For 95 doses Given 11/06/2024 9:06 PM EDT 45 mg Given 11/05/2024 11:36 PM EDT 45 mg Given 11/04/2024 10:44 PM EDT 45 mg naloxone (Narcan) injection 0.1 mg 0.1 [...] is greater than 12 breaths per minute. nitroglycerin 100 mcg/mL 25ml CVL soln As needed, Starting on Wed10/31/24 at 1909, Intraprocedure Given 10/31/2024 7:34 PM EDT 200 mcg Given 10/31/2024 7:24 PM EDT 100 mcg Given 10/31/2024 7:09 PM EDT 100 mcg ondansetron HCl (PF) (Zofran) injection 4 mg 4 mg, intravenous, Every 8 hours PRN, nausea, vomiting, Starting on 11/04/24 at 1335, For 5 days, Administer as an IV push over 2 to 5 minutes. pantoprazole (ProtoNix) EC tablet 40 mg 40 [...] if possible. Do not crush or chew. rosuvastatin (Crestor) tablet 40 mg 40 mg, oral, Nightly, First dose on Wed11/07/24 at 2200, For 99 days sennosides-docusate sodium (Kadie-Colace) 8.6-50 mg per tablet 1 tablet 1 tablet, oral, Nightly PRN, constipation, Starting on Heena 11/02/24 at 2356, For 99 days Given 11/06/2024 9:33 AM EDT 1 tablet Given 11/03/2024 10:02 PM EDT 1 tablet sodium chloride 0.9 % infusion Continuous PRN, Starting on Wed10/31/24 at 1842, Intraprocedure New Bag 10/31/2024 6:42 PM EDT 100 mL/hr 100 mL/hr sodium chloride flush 10 mL 10 mL, [...] Given 11/07/2024 6:08 AM EDT 1 g topiramate (Topamax) tablet 100 mg 100 mg, oral, 2 times daily, First dose (after last modification) on Wed11/03/24 at 1000, For 191 doses, Crushing/splitting of tablets is not recommended due to bitter taste. Given 11/07/2024 9:00 AM EDT 100 mg Given 11/06/2024 9:06 PM EDT 100 mg Given 11/06/2024 9:34 AM EDT 100 mg traZODone (Desyrel) tablet 100 [...] Given 11/06/2024 9:47 PM EDT 40 mg verapamil (Isoptin) injection As needed, Starting on Wed10/31/24 at 1901, Intraprocedure Given 10/31/2024 7:01 PM EDT 2.5 mg documented in this encounter Active and [...] Oreilly, DEE) 0900 (Given - Provider: Patricia Butt RN) atorvastatin (Lipitor) tablet 80 mg (CANCELED) 80 mg, oral, Nightly, First dose (after last modification) on Wed11/03/24 at 2200, For 96 doses 2336 (Given - Provider: Radha Godoy RN - Comment: patient is on Carafate must seperate medications by two hours) 2106 (Given - Provider: Christine Baker RN) clopidogrel (Plavix) tablet 75 mg 75 mg, oral, Daily, First dose (after last reorder) on Wed11/03/24 at 1300, For 99 days 1021 (Given - Provider: Joanna French RN) 0933 (Given - Provider: Fang Oreilly RN) 0900 (Given - Provider: Patricia Butt RN) enoxaparin (Lovenox) syringe 30 mg 30 mg, subcutaneous, 2 times daily, First dose on Wed11/03/24 at 1000, For 99 days 1021 (Given - Provider: Joanna French RN)2336 (Given - Provider: Radha Godoy RN - Comment: patient is on Carafate must seperate medications by two hours) 0932 (Given - Provider: Fang Oreilly RN)2106 (Given - Provider: Christine Baker RN) 0855 (Given - Provider: Patricia Butt RN) ergocalciferol (Vitamin D-2) capsule 50,000 Units (COMPLETED) 50,000 Units, oral, Weekly, First dose on Wed11/05/24 at 0715, For 1 day 0832 (Given - Provider: Jaonna French RN) escitalopram (Lexapro) tablet 20 mg 20 [...] Explanatory comment: home med for chronic pain 173 (Medication Applied - Provider: Joanna French RN [...] French RN) 0934 (Given - Provider: Fang Oreilly RN) 0855 [...] 2106 (Given - Provider: Christine Baker RN) morphine [...] Godoy RN)1704 (Given - Provider: Patricia Butt, RN) 0608 (Given - Provider: Christine Baker, DEE)1700 (Given - Provider: Patricia Butt, RN) polyethylene glycol (Glycolax) packet 17 g 17 g, oral, Daily, First dose on Wed11/06/24 at 1600, For 99 days 1704 (Given - Provider: Patricia Butt, RN) 0855 (Given - Provider: Patricia Butt, RN) prochlorperazine (Compazine) injection 10 mg 10 mg, intravenous, Once, On Wed11/02/24 at 1800, For 1 dose, Give IV [...] Joanna French RN)1026 (Given - Provider: Joanna French RN)1639 (Given - Provider: Joanna French RN)2106 (Given - Provider: Radha Godoy RN) 0934 (Given - Provider: Fang Oreilly RN)1100 (Not Given - Provider: Fang Oreilly RN - Reason: Patient/family refused - Comment: took 7 am dose late)1704 (Given - Provider: Patricia Butt RN)2107 (Given - Provider: Christine Baker RN) 0608 (Given - Provider: Christine Baker RN)0856 (Given - Provider: Patricia Butt RN)1610 (Given [...] two hours) 0934 (Given - Provider: Fang Oreilly RN)2106 (Given - Provider: Christine Baker RN) 0900 (Given - Provider: Patricia Butt RN) traZODone (Desyrel) tablet 100 mg 100 mg, oral, Nightly, First dose (after last modification) on Wed11/03/24 at 2200, For 95 doses 2335 (Given - Provider: Radha Godoy RN - Comment: patient is on Carafate must seperate medications by two hours) 210 (Given - Provider: Christine Baker RN) verapamil (Calan) tablet 40 mg 40 mg, oral, Every 8 hours scheduled, First dose on Wed11/04/24 at 1400, For 99 days 0630 (Given - Provider: Radha Godoy RN)1355 (Given - Provider: Joanna French, RN)2336 (Given [...] Joanna French RN)2249 (Given - Provider: Radha Godoy, DEE) 0550 (Given - Provider: Radha Godoy, RN)1058 (Given - Provider: Fang Oreilly RN)1704 (Given - Provider: Patricia Butt, DEE) diphenhydrAMINE (BENADryl) injection 50 mg 50 mg, [...] Radha Godoy RN)2224 (Given - Provider: Radha Godoy, RN) 0700 (Given - Provider: Radha Godoy, RN)0908 (Given - Provider: Fang Oreilly RN)1100 (Given - Provider: Fang Oreilly RN)1241 (Given - Provider: Fang Oerilly, RN)1444 (Given - Provider: Patricia Butt RN)1704 (Given - Provider: Patricia Butt RN)1913 (Given - Provider: Patricia Butt RN) fentaNYL (Sublimaze) injection 50 mcg (CANCELED) 50 mcg, intravenous, Every 2 hour PRN, severe pain (8-10 pain score), use only if oral route not available or oral medications ineffective., Starting on 11/06/24 at 2200, For 99 days 2205 (Given - Provider: Christine Baker RN - Comment: bottle was thrown out when wasting) fentaNYL (Sublimaze) injection 50 mcg (CANCELED) 50 mcg, intravenous, Every 4 hours PRN, severe pain (8-10 pain score), use only if oral route not available or oral medications ineffective., Starting on 11/06/24 at 2229 0259 (Given - Provider: Christine [...] IV fluids or tube feeding bolus) HYDROcodone-acetaminophen (Finley) 5-325 mg per tablet 1 tablet(Linked Group [...] Oreilly RN)1300 (See Alternative - Provider: Fang Oreilly, DEE) 0909 (See Alternative - Provider: Patricia Butt RN)1449 (See Alternative - Provider: Patricia Butt RN) HYDROcodone-acetaminophen (Finley) 5-325 mg per tablet 2 tablet(Linked Group 4) 2 tablet, oral, Every 4 hours PRN, severe pain (8-10 pain score), Starting on Heena 11/02/24 at 1331, For 96 days 0401 (Given - Provider: Radha Godoy RN)1138 (Given - Provider: Joanna French, DEE)1604 (Given - Provider: Joanna French, DEE) 0553 (Given - Provider: Radha Godoy RN)0932 (Given - Provider: Fang Oreilly RN)1300 (Given - Provider: Fang Oreilly, DEE) 0909 (Given - Provider: Patricia Butt RN)1449 [...] possible. 0630 (Given - Provider: Radha Godoy, RN)1400 (Given - Provider: Joanna French, RN)2347 (Given - Provider: Radha Godoy, DEE) melatonin [...] 99 days 0933 (Given - Provider: Fang Oreilly, DEE) sodium chloride flush 10 mL(Linked Group 5) 10 mL, intravenous, Every 8 hours PRN, line care, Starting on 10/30/24 at 1913, For 99 days traMADol (Ultram) tablet 50 mg (CANCELED) 50 mg, oral, Every 6 hours PRN, moderate pain (4-7 pain score), Starting on Wed10/30/24 at 2001, For 99 days 1356 (Given - Provider: [...] or tube feeding bolus) Group 4: HYDROcodone-acetaminophen (Finley) 5-325 mg per tablet 1 tabletJump to med 1 tablet, oral, Every 4 hours PRN, moderate pain (4-7 pain score), Starting on [facility] 11/02/24 at 1331, For 96 days Or HYDROcodone-acetaminophen (Finley) 5-325 mg per tablet 2 tabletJump to med 2 tablet, oral, Every 4 hours PRN, severe pain (8-10 pain score), Starting on [facility] 11/02/24 at 1331, For 96 days Group 5: Insert peripheral IV (CANCELED) Once, On Wed10/30/24 at 1914, For 1 occurrence And Saline lock IV (CANCELED) Once, On Wed10/30/24 at 1914, For 1 occurrence And sodium chloride flush 10 mLJump to med 10 mL, intravenous, Every 8 hours PRN, line care, Starting on Wed10/30/24 at 1913, For 99 days documented in this encounter Care Teams Magnetic Tape Composer Operator Relationship Specialty Start Date End Date Thomas Alas MD [address] [place], [place] [id number] PCP - General Family Medicine 08/17/24 documented as of this encounter
--- OUTSIDE RECORDS SUMMARY | 2024-11-01 12:30 | XMS_ITS | Encounter Summary ---
Author Organization [facility] Address [address] [place] [address] Care Team Providers Care Barn Manager Name Role Phone Thomas Alas MD Primary Care Provider [phone] Reason for Visit * Auth/Cert (Routine) Specialty Diagnoses / Procedures Referred By Contac t Referred To Contact Diagnoses Chest pain NSTEMI Procedures NO CODED SERVICE Sandeep Casey MD [address] [place] [address] Phone: tel: fax: [facility] [address] [place] [address] Phone: tel: fax: Referral ID Status Reason Start Date Expiration Date Visits Re quested Visits Authorized [id number] 1 1 Encounter Details Date Type Department Care Team (Late st Contact Info) Description 11/01/2024 12:30 PM EDT - 11/01/2024 1:30 PM EDT Surgery [facility] V[facility] Lab [address] [place] [address] Mitchell Agustin MD [address] [facility] [address] [facility] [place] [address] Coronary angiography Social History Tobacco Use Types Packs/Day Years Used Date Smoking Tobacco: Never Smokeless Tobacco: Never [facility] Utilities Answer Date Recorded In the past 12 months has [employer], gas, oil, or water company threatened [...] time in the past 12 m [facility], were you homeless or living in [...] Sign Reading Time Taken Comments Blood Pressure 113/58 11/01/2024 12:22 PM EDT Pulse 78 11/01/2024 12:22 PM EDT Temperature 36.4 C (97.6 F) 11/01/2024 11:27 AM EDT Respiratory Rate 16 11/01/2024 12:22 PM EDT Oxygen Saturation 98% 11/01/2024 12:23 PM EDT Inhaled Oxygen Concentration - - Weight 80.9 kg (178 lb 6.4 oz) 11/01/2024 5:00 A M EDT Height 167.6 cm (5' 5.98 ) 10/31/2024 3:20 AM ED T Body Mass Index 29.62 10/31/2024 3:20 AM EDT documented in this encounter Functional Status * Question Answer Date of Assessment Author BP 113/58 11/01/2024 12:22 PM EDT Oleg Haque RN Pulse 78 11/01/2024 12:22 PM EDT Oleg Haque RN * Qureshi Fall Risk Question Answer Date of Assessment Author History of Falling, Immediat e or Within 3 Months 0 11/01/2024 7:56 AM EDT Patricia Butt RN Secondary Diagnosis 15 11/01/2024 7:56 AM ED T Patricia Butt RN Ambulatory Aid 0 11/01/2024 7:56 AM EDT Car rPatricia RN Intravenous Therapy/Heparin Lock 20 11/02/19 25 7:56 AM EDT Patricia Butt RN Gait/Transferring 0 11/01/2024 7:56 AM EDT Patricia Butt RN Mental Status 0 11/01/2024 7:56 AM EDT Patricia Butt RN Qureshi Fall Risk Score 35 11/01/2024 7:56 AM EDT Patricia Butt RN * Cyrus Scale Question Answer Date of Assessment Author Cyrus Milner Risk Interventions Continue to assess patient according to level of care 10/31/2024 8:30 AM EDT Jami Bridges RN Sensory Perceptions 4 11/01/2024 7:56 AM ED T Patricia Butt RN Moisture 4 11/01/2024 7:56 AM EDT Patricia Butt RN Activity 3 11/01/2024 7:56 AM EDT Patricia Butt RN Mobility 4 11/01/2024 7:56 AM EDT Patricia Butt RN Nutrition 3 11/01/2024 7:56 AM EDT Patricia Butt RN Friction and Shear 3 11/01/2024 7:56 AM EDT Patricia Butt RN Cyrus Scale Score 21 11/01/2024 7:56 AM EDT Patricia Butt RN * Patient's Stated Pain Goal Answer Date of Assessment Author No pain 11/01/2024 10:13 AM EDT Palmer Butt RN * Chilton Fall Risk Interventions Question Answer Date of Assessment Author Chilton Fall Risk Interventions Complete 025 7:56 AM EDT Patricia Butt RN * Pain Assessment Timer Question Answer Date of Assessment Author Restart Pain Assessment Timer Yes 11/01/2024 11:13 AM EDT Patricia Butt RN * Sepsis Model Scores Question Answer Date of Assessment Author Early Detection of Sepsis Score 0.62 1:15 PM EDT Delano Guzman * Pain Assessment Question Answer Date of Assessment Author Pain Location Chest 10/31/2024 8:00 PM EDT Fern Terry RN Pain Orientation Left 10/31/2024 8:00 PM EDT Fern Quinn RN Pain Interventions Emotional support;Environmental changes 11/01/2024 7:56 AM EDT Patricia Butt RN Pain Onset Ongoing 10/31/2024 8:00 PM EDT Fern Horn RN Response to Interventions improved 2024 11:13 AM EDT Patricia Butt RN Pain Type Chronic pain 11/01/2024 7:56 AM EDT Patricia Butt RN Clinical Progression Gradually improving 11/01/2024 7: 56 AM EDT Patricia Butt RN Pain Score 4 11/01/2024 11:13 AM EDT Patricia Butt RN Pain Assessment 0-10 11/01/2024 7:56 AM EDT Patricia Ambrose RN * Audit Alcohol Screening Question Answer [...] 7:53 PM EDT Maribel Merchant RN * Patient Behaviors Answer Date of Assessment Author Groaning;Rubbing area 11/01/2024 8:12 AM EDT Patricia Thorne RN * Question Answer Date of Assessment Author Heart Rate Source Monitor 11/01/2024 11:27 AM EDT Patricia Butt RN Patient Position Sitting 11/01/2024 11:27 AM EDT Patricia Butt RN * Deterioration Index Score Question Answer Date of Assessment Author Deterioration Index Score 23.63 11/01/2024 1:15 PM EDT Matthias Guzmanq * Question Answer Date of Assessment Author BP 113/58 11/01/2024 12:22 PM EDT Oleg Haque RN Pulse 78 11/01/2024 12:22 PM EDT Oleg Haque RN Resp 16 11/01/2024 12:22 PM EDT Oleg Haque RN * Head, Ears, Eyes, Nose, and Throat (HEENT) Question Answer Date of Assessment Author Head, Ears, Eyes, Nose, and Throat (WDL) X 11/01/2024 7:56 AM EDT Patricia Butt R N R Eye Mildly impaired vision;Corrective lenses 11/01/2024 7:56 AM EDT Patricia Butt RN L Eye Mildly impaired vision;Corrective lenses 11/01/2024 7:56 AM EDT Patricia Butt RN R Ear Intact 11/01/2024 7:56 AM EDT Patricia Butt RN L Ear Intact 11/01/2024 7:56 AM EDT Patricia Butt RN Nose Intact 11/01/2024 7:56 AM EDT Patricia Butt RN Throat Intact 11/01/2024 7:56 AM EDT Patricia Butt RN Tongue [place];Moist 11/01/2024 7:56 AM EDT Patricia Butt RN Mucous Membrane(s) Moist;[place];Intact 11/01/2024 7:56 A M EDT Patricia Butt RN Teeth Intact 11/01/2024 7:56 AM EDT Patricia Butt RN Head and Face Symmetrical 11/01/2024 7:56 AM EDT Patricia Butt RN Neck Symmetrical 11/01/2024 7:56 AM EDT Patricia Butt RN Lips Dry;Moist;[place] 11/01/2024 7:56 AM EDT Car rPatricia RN * Question Answer Date of Assessment Author MAP (mmHg) 81 11/01/2024 11:27 AM EDT Patricia Butt RN * Short Portable Mental Status Question Answer Date of Assessment Author What are the date, month, year? 0 7:56 AM EDT Patricia Butt RN What is the day of the week? 0 11/01/2024 7 :56 AM EDT Patricia Butt RN What is the name of this place? 0 7:56 AM EDT Patricia Butt RN What is your phone number? 0 11/01/2024 7:5 6 AM EDT Patricia Butt RN How old are you? 0 11/01/2024 7:56 AM EDT Patricia Beckham RN When were you born? 0 11/01/2024 7:56 AM ED T Patricia Butt RN Who is the current president? 0 11/01/2024 7:56 AM EDT Patricia Butt RN Who was the president before him? 1 025 7:56 AM EDT Patricia Butt RN * Fall Risk Level Question Answer Date of Assessment Author Mobility zone Low (Green Zone) 11/01/2024 7:56 AM EDT Patricia Butt RN Qureshi fall risk zone Low (Green Zone) 11/01/2024 7:56 AM EDT Patricia Butt RN Mental status questionaire zone Low (Green Zone) 11/01/2024 7:56 AM EDT Patricia Butt RN * Skin Assessment Sign off Question Answer Date of Assessment Author Dual Sign-off - Admission/Transfer Stacie Cadet RN 10/30/2024 6:32 PM EDT Angeline Keyes RN Any new wounds identified on admission/transfer? No 10/30/2024 6:32 PM EDT Carito Keyes RN Provider notified of new wound No 10/30/2024 6:32 PM EDT Angeline Keyes RN * Question Answer Date of Assessment Author SpO2 98 11/01/2024 12:23 PM EDT Oleg Haque RN * Question Answer Date of Assessment Author Ectopy Premature ventricula r contractions 11/01/2024 2:00 AM EDT Fern Pierce RN Ectopy Frequency Rare 11/01/2024 2:00 AM EDT Fern Quinn RN * Question Answer Date of Assessment Author Pulse rate from Plethysmogram (bpm) 86 11/01 11:27 AM EDT Patricia Butt RN * Question Answer Date of Assessment Author Level of Consciousness Alert 7:56 AM EDT Patricia Butt RN Orientation Level Oriented X4 11/01/2024 7:5 6 AM EDT Patricia Butt RN Cognition Follows commands 11/01/2024 7:56 AM EDT Patricia Butt RN Speech Clear 11/01/2024 7:56 AM EDT Patricia Butt RN L Pupil Reaction Brisk 11/01/2024 7:56 AM EDT Patricia Butt RN L Pupil Size (mm) 4 11/01/2024 7:5 6 AM EDT Patricia Butt RN R Pupil Reaction Brisk 11/01/2024 7:56 AM EDT Patricia Butt RN R Pupil Size (mm) 4 11/01/2024 7:5 6 AM EDT Patricia Butt RN Swallow Able to swallow gina ds and liquids without difficulty 11/01/2024 7:56 AM EDT Patricia Butt RN R Pupil Shape Round 11/01/2024 7:56 AM EDT Patricia Butt RN L Pupil Shape Round 11/01/2024 7:56 AM EDT Patricia Butt RN Neuro Symptoms None 11/01/2024 7:56 AM EDT Patricia Butt RN Pupil Assessment Yes 11/01/2024 7:56 AM EDT Patricia Butt RN Hand Grasp/Motor Function/Sensation Assessment Grasp;Dorsiflexion;Plan tar flexion 11/01/2024 7:56 AM EDT Patricia Butt RN Facial Symmetry Symmetrical 11/01/2024 7:56 AM EDT Patricia Butt RN * Question Answer Date of Assessment Author Bilateral Breath Sounds Clear;Diminished 11/01/2024 7: 56 AM EDT Patricia Butt RN Respiratory Pattern Normal 11/01/2024 7:56 AM ED T Patricia Butt RN Chest Assessment Chest expansion symmetrical 11/01/2024 7:56 AM EDT Patricia Butt RN Cough None 11/01/2024 7:56 AM EDT Patricia Butt RN Respiratory Effort Unlabored 11/01/2024 7:56 AM EDT Patricia Butt RN Respiratory Depth/Rhythm Shallow 11/01/2024 7:56 AM EDT Patricia Butt RN * Question Answer Date of Assessment Author Cardiac Regularity Regular 11/01/2024 7:56 AM EDT Patricia Butt RN Technology Engineer Status On 11/01/2024 7:56 AM EDT Patricia Butt RN Telemetry Box Number [id number] 11/01/2024 7:56 AM E DT Patricia Butt RN Jugular Venous Distention (JVD) No 11/01/2024 7:56 AM EDT Patricia Butt RN Cardiac Symptoms Other (Comment) 11/01/2024 7:56 AM ED T Patricia Butt RN Heart Sounds S1, S2 11/01/2024 7:56 AM EDT Patricia Butt RN * Gastrointestinal Question Answer Date of Assessment Author Last BM Date [id number] 10/31/2024 8:00 PM EDT Fern Pierce RN Passing Flatus Yes 11/01/2024 7:56 AM EDT Patricia Butt RN Abdominal Tenderness Guarding;Soft 11/01/2024 7:56 AM EDT Patricia Butt RN Bowel Sounds (All Quadrants) Hypoactive 11/01/2024 7:56 AM EDT Patricia Butt RN Gastrointestinal (WDL) X 7:56 AM EDT Patricia Butt RN Abdomen Inspection Soft;Rounded;Nondist e nded 11/01/2024 7:56 AM EDT Patricia Butt RN Gastrointestinal Symptoms Nausea 2024 7:56 AM EDT Patricia Butt RN Nausea Precipitating Factors Movement 11/01/2024 7:56 AM EDT Patricia Butt RN Constipation Precipitating Factors Disease related 11/01/2024 7:56 AM EDT Patricia Butt RN Bowel Sounds All quadrants 11/01/2024 7:56 AM EDT Patricia Butt RN * Peripheral Vascular Question Answer Date of Assessment Author Peripheral Vascular (WDL) WDL 11/01/2024 7:56 AM EDT Patricia Butt RN Capillary Refill Less than/equal to 2 seconds (All extremities) 11/01/2024 7:56 AM EDT Patricia Butt RN Pulses Right radial;Left radial;Left posterior tibial;Right posterior tibial;Right pedal;Left pedal 11/01/2024 7:56 AM EDT Patricia Butt RN Cyanosis None 11/01/2024 7:56 AM EDT Patricia Butt RN Peripheral Vascular Additional Assessments Right upper extremity;Right lower extremity;Left upper extremity;Left lower extremity 11/01/2024 7:56 AM EDT Patricia Butt RN * RUE Neurovascular Assessment Question Answer Date of Assessment Author RUE Capillary Refill Less than/equal to 2 seconds 11/01/2024 7:56 AM EDT Patricia Butt RN RUE Color Appropriate for ethnicity 11/01/2024 7:56 AM EDT Patricia Butt RN RUE Temperature/Moisture Warm;Dry 11/01/2024 7:56 AM EDT Patricia Butt RN Right Radial Pulse +2 11/01/2024 7:56 AM EDT Patricia Butt RN * LUE Neurovascular Assessment Question Answer Date of Assessment Author LUE Capillary Refill Less than/equal to 2 seconds 11/01/2024 7:56 AM EDT Patricia Butt RN LUE Color Appropriate for ethnicity 11/01/2024 7:56 AM EDT Patricia Butt RN LULesia Temperature/Moisture Warm;Dry 11/01/2024 7:56 AM EDT Patricia Butt RN Left Radial Pulse +2 11/01/2024 7:56 AM EDT Patricia Butt RN * RLE Neurovascular Assessment Question Answer Date of Assessment Author RLE Capillary Refill Less than/equal to 2 seconds 11/01/2024 7:56 AM Patricia Malone RN RLE Color Appropriate for ethnicity 11/01/2024 7:56 AM EDT Patricia Butt RN RLE Temperature/Moisture Warm;Dry 11/01/2024 7:56 AM EDT Patricia Butt RN Right Posterior Tibial Pulse +1 11/01/2024 7:56 AM JUNT Patricia Butt RN Right Pedal Pulse +2 11/01/2024 7:56 AM EDT Patricia Butt RN RLLesia Varicose Veins Present No 11/01/2024 7:56 AM JUNT Patricia Butt RN RLLesia DVT Prophylaxis Sequential compressi on device 11/01/2024 7:56 AM EDT Patricia Butt RN * LLE Neurovascular Assessment Question Answer Date of Assessment Author LLE Capillary Refill Less than/equal to 2 seconds 11/01/2024 7:56 AM EDT Patricia Butt RN LLE Color Appropriate for ethnicity 11/01/2024 7:56 AM EDT Patricia Butt RN LLE Temperature/Moisture Warm;Dry 11/01/2024 7:56 AM EDT Patricia Butt RN Left Posterior Tibial Pulse +1 11/01/2024 7:56 AM EDT Patricia Butt RN Left Pedal Pulse +2 11/01/2024 7:56 AM EDT C Patricia tom RN LLE Varicose Veins Present No 11/01/2024 7:56 AM EDT Patricia Butt RN LLLesia DVT Prophylaxis Sequential compressi on device 11/01/2024 7:56 AM EDT Patricia Butt RN * Musculoskeletal Question Answer Date of Assessment Author RUE Full movement 11/01/2024 7:56 AM EDT Patricia Butt RN RLE Full movement 11/01/2024 7:56 AM EDT Patricia Butt RN LUE Full movement 11/01/2024 7:56 AM EDT Patricia Butt RN LLE Full movement 11/01/2024 7:56 AM EDT Patricia Butt RN Musculoskeletal (WDL) WDL 11/01/2024 7:56 AM EDT Patricia Butt RN * Psychosocial Question Answer Date of Assessment Author Patient Behaviors/Mood Calm 11/01/2024 7:56 AM JUNT Patricia Butt RN Needs Expressed Physical 11/01/2024 7:56 AM EDT Patricia Ambrose RN Psychosocial (WDL) WDL 11/01/2024 7:56 AM EDT Patricia Butt RN Ability to Express Feelings Able to express 11/01/2024 7:56 AM EDT Patricia Butt RN Ability to Express Needs Able to express 11/01/2024 7: 56 AM EDT Patricia Butt RN Ability to Express Thoughts Able to express 11/01/2024 7:56 AM EDT Patricia Butt RN Ability to Understand Others Understands 11/01/2024 7 :56 AM EDT Patricia Butt RN * Qureshi Fall Risk Question Answer Date of Assessment Author History of Falling, Immediat e or Within 3 Months 0 11/01/2024 7:56 AM EDT Patricia Butt RN Secondary Diagnosis 15 11/01/2024 7:56 AM ED T Patricia Butt RN Ambulatory Aid 0 11/01/2024 7:56 AM EDT Car rPatricia RN Intravenous Therapy/Heparin Lock 20 11/02/19 7:56 AM EDT Patricia Butt RN Gait/Transferring 0 11/01/2024 7:56 AM EDT Patricia Butt RN Mental Status 0 11/01/2024 7:56 AM EDT Patricia Butt RN Qureshi Fall Risk Score 35 11/01/2024 7:56 AM EDT Patricia Butt RN * Cyrus Scale Question Answer Date of Assessment Author Cyrus Milner Risk Interventions Continue to assess patient according to level of care 10/31/2024 8:30 AM EDT Jami Bridges RN Sensory Perceptions 4 11/01/2024 7:56 AM ED T Patricia Butt RN Moisture 4 11/01/2024 7:56 AM EDT Patricia Butt RN Activity 3 11/01/2024 7:56 AM EDT Patricia Butt RN Mobility 4 11/01/2024 7:56 AM EDT Patricia Butt RN Nutrition 3 11/01/2024 7:56 AM EDT Patricia Butt RN Friction and Shear 3 11/01/2024 7:56 AM EDT Patricia Butt RN Cyrus Scale Score 21 11/01/2024 7:56 AM EDT Patricia Butt RN * Charting Type Question Answer Date of Assessment Author Charting Type Shift assessment 11/01/2024 7:56 AM EDT Patricia Butt RN * Patient's Stated Pain Goal Answer Date of Assessment Author No pain 11/01/2024 10:13 AM EDT Palmer Butt RN * Cultural Requests During Hospitalization Answer Date of Assessment Author None 11/01/2024 7:56 AM EDT Fatuma Butt RN * Spiritual Requests During Hospitalization Answer Date of Assessment Author Jain 11/01/2024 7:56 AM EDT Fatuma Butt RN * Genitourinary Question Answer Date of Assessment Author Female Genitalia Intact 11/01/2024 7:56 AM EDT Patricia Beckham RN Genitourinary (WDL) X 11/01/2024 7:56 AM ED T Patricia Butt RN Genitourinary Symptoms Excessive passage of urine 11/01/2024 7:56 AM EDT Patricia Butt RN Suprapubic Tenderness No 11/01/2024 7:56 AM EDPatricia Miranda RN * Patient Monitoring Question Answer Date of Assessment Author Frequency of Checks Twice per hour, standard 7:56 AM EDPatricia Miranda RN * Safe Environment Question Answer Date of Assessment Author Chair Alarms Off 11/01/2024 7:56 AM EDPatricia Miranda RN Arm Bands On ID;Allergies 11/01/2024 7:56 AM EDPatricia Miranda RN Side Rails/Bed Safety 2/4 11/01/2024 7:56 AM EDPatricia Miranda RN Bed Alarms Off 11/01/2024 7:56 AM EDPatricia Miranda RN The Patient's Environment is Safe Yes 025 7:56 AM Patricia Malone RN * Mobility Question Answer Date of Assessment Author Resting chair 11/01/2024 12:00 PM Patricia Malone RN Activity Performed Chair 11/01/2024 12 :00 PM Patricia Malone RN Repositioned Up in chair 11/01/2024 12:00 PM Patricia Malone RN Head of Bed Elevated Self regulated 11/01/2024 12:00 PM EDPatricia Miranda RN Heels/Feet Foot of bed elevated 11/01/2024 7:56 AM Patricia Reynaga RN Range of Motion All extremities;Active 11/01/2024 7:56 AM Patricia Malone RN Anti-Embolism Devices Bilateral;Sequenti al compression devices, below knee 11/01/2024 7:56 AM Patricia Malone RN Anti-Embolism Intervention Off 11/01/2024 7:56 AM Patricia Malone RN Patient's mobility zone Zone 5 11/01/2024 7:56 A M Patricia Malone RN Positioning Frequency Able to turn self 11/02/19 25 12:00 PM Patricia Malone RN * Hygiene Question Answer Date of Assessment Author Skin Care Incontinent cleanser 11/01/2024 7:56 AM E Patricia Tabor RN Hygiene Per self 11/01/2024 7:56 AM Patricia Malone RN Oral Care Per self 11/01/2024 7:56 AM Patricia Malone RN Level of Assistance Minimal assist 11/01/2024 7:56 AM Patricia Malone RN Is Patient Total Care? No 11/01/2024 7:56 AM Patricia Malone RN Incontinence Protective Devices None 11/01/2024 7:56 AM Patricia Malone RN CHG (Chlorhexidine Gluconate) Hygiene Wipes 11/01/2024 11:30 AM EDT Jinny Chapa, PCT * Precautions Question Answer Date of Assessment Author Precautions Bleeding 11/01/2024 7:56 AM Patricia Malone RN * Comfort and Environment Interventions Question Answer Date of Assessment Author Comfort Repositioned 11/01/2024 7:56 AM JUNT Patricia Butt RN * ADL Screening Question Answer Date [...] Weakness of Legs None 10/30/2024 7:51 PM EDT Maribel Harley RN Weakness of Arms/Hands None 10/30/2024 7:51 PM EDT Maribel Merchant RN Hearing - Right Ear Functional 10/30/2024 7:51 PM ED Maribel Quintero RN Hearing - Left Ear Functional 10/30/2024 7:51 PM EDT Maribel Merchant RN * Consults Question Answer Date of Assessment Author Spiritual Care Consult Needed No 10/30/2024 7:53 PM EDMaribel Quintero RN Social Services Consult Needed Yes (Comment) 10/30/2024 7:53 PM EDT Maribel Merchant R N Palliative Care Consult Needed No 10/30/2024 7:53 PM Maribel Cheng R N * Therapy Consults Question Answer Date of Assessment Author PT Evaluation Needed 2 10/30/2024 7:51 PM Maribel Andrews RN OT Evaluation Needed 2 10/30/2024 7:51 PM E Maribel Song RN [employer] Evaluation Needed 2 10/30/2024 7:51 PM EDT Maribel Merchant RN * Assistive Devices Question Answer Date of Assessment Author Assistive Devices Eyeglasses 10/30/2024 7:51 PM EDMaribel Quintero RN * Provider Notification Question Answer Date of Assessment Author Provider Role Nurse Practitioner 10/30/2024 8:10 PM ED T Fern Pierce, DEE Provider Name Lesli Luna 10/30/2024 8:10 PM EDT Fern Terry RN Method of Communication Epic Chat 10/30/2024 8:10 P M EDT Fern Pierce, RN Reason for Communication Critical lab value 10/30/2024 8:10 PM EDT Fern Pierce, RN Response No new orders 10/30/2024 8:10 PM EDT Fern Terry, DEE Notification Time [id number] 10/30/2024 8:10 PM EDT Fern Pierce, RN * Chilton Fall Risk Interventions Question Answer Date of Assessment Author Chilton Fall Risk Interventions Complete 025 7:56 AM EDT Patricia Butt RN * Suicidal Ideation Question Answer Date of Assessment Author 1. Wish to be (Lifetime) No 10/30/2024 7:54 PM EDT Maribel Mrechant RN 2. Non-Specific Active Suici martha Thoughts (Lifetime) No 10/30/2024 7:54 PM EDT Maribel Merchant R N * Kris Coma Scale Question Answer Date of Assessment Author Best Eye Response Spontaneous 11/01/2024 7:56 AM EDT Patricia Butt RN Best Verbal Response Oriented 11/01/2024 7:56 AM E DT Patricia Butt RN Best Motor Response Follows commands 11/01/2024 7:56 A M EDT Patricia Butt RN [place] Coma Scale Score 15 11/01/2024 7:56 AM EDT Patricia Butt RN * Is this patient currently opioid tolerant (receiving at least 60 mg morphine equivalent per day (MME/day) for past 7 days or longer)? Answer Date of Assessment Author Opioid Tolerant 10/31/2024 11:08 AM EDT Ky Ritter MD * Pain Assessment Question Answer Date of Assessment Author Pain Location Chest 10/31/2024 8:00 PM EDT Fern Terry RN Pain Orientation Left 10/31/2024 8:00 PM EDT Fern Quinn RN Pain Interventions Emotional support;Environmental changes 11/01/2024 7:56 AM EDT Patricia Butt RN Pain Onset Ongoing 10/31/2024 8:00 PM EDT Fern Horn RN Response to Interventions improved 2024 11:13 AM EDT Patricia Butt RN Pain Type Chronic pain 11/01/2024 7:56 AM EDT Patricia Butt RN Clinical Progression Gradually improving 11/01/2024 7: 56 AM EDT Patricia Butt RN Pain Score 4 11/01/2024 11:13 AM EDT Patricia Butt RN Pain Assessment 0-10 11/01/2024 7:56 AM EDT Patricia Ambrose RN * Nutrition Question Answer Date of Assessment Author Diet Type Regular 11/01/2024 7:56 AM EDT Patricia Butt RN Feeding Able to feed self 11/01/2024 7:56 AM EDT Patricia Butt RN Appetite Good 11/01/2024 7:56 AM EDT Patricia Butt RN * Integumentary Question Answer Date of Assessment Author Skin Color Appropriate for race 11/01/2024 7:56 AM E Patricia Tabor RN Skin Condition/Temp Warm;Dry 11/01/2024 7:56 AM ED T Patricia Butt RN Skin Integrity Other (Comment) 11/01/2024 7:56 AM EDT Patricia Butt RN Skin Turgor Non-tenting 11/01/2024 7:56 AM JUNT Patricia Butt RN Integumentary Additional Assessments Tattoos 11/01/2024 7:56 AM EDT Patricia Butt RN Integumentary (WDL) X 11/01/2024 7:56 AM ED T Patricia Butt RN Does patient have tattoos? Yes 11/01/2024 7:5 6 AM Patricia Malone RN * GI Interventions Question Answer Date of Assessment Author GI Interventions Performed Encouraged adequate fiber intake;Encouraged adequate fluid intake 11/01/2024 7:56 AM Patricia Malone RN * Question Answer Date of Assessment Author Which is your dominant hand? Right 11/01/2024 7 :56 AM JUNT Patricia Butt RN * Question Answer Date of Assessment Author Urinary Frequency Adequate 11/01/2024 11:00 AM Patricia Malone RN Urine Color Yellow/straw 11/01/2024 11:00 AM Patricia Malone RN Urine Appearance Clear 11/01/2024 11:00 AM Patricia Malone RN Urine Odor Unable to assess 11/01/2024 11:00 AM Patricia Malone RN Urinary Incontinence No 11/01/2024 11:00 AM Patricia Malone RN * Audit Alcohol Screening Question Answer [...] 10/30/2024 7:53 PM Maribel Cheng RN * Question Answer Date of Assessment Author Patient Goal for Treatment DC 11/01/2024 7:5 6 AM EDT Patricia Butt RN * Drug [...] PM EDT Maribel Merchant R N * Patient Behaviors Answer Date of Assessment Author Groaning;Rubbing area 11/01/2024 8:12 AM EDT Car rPatricia RN * Question Answer Date of Assessment Author Temp 97.6 11/01/2024 11:27 AM EDT Patricia Butt RN Temp src Temporal 11/01/2024 11:27 AM EDT Patricia Butt RN Heart Rate Source Monitor 11/01/2024 11:27 AM EDT Patricia Butt RN BP Location Right arm 11/01/2024 11:27 AM EDT Patricia Butt RN BP Method Automatic 11/01/2024 11:27 AM EDT Patricia Butt RN Cardiac Rhythm NSR 11/01/2024 11:27 AM EDT Ca Patricia cutler RN Patient Position Sitting 11/01/2024 11:27 AM EDT Patricia Butt RN * Care Plan - Safety Goals Question Answer Date of Assessment Author Free from fall injury Assess patient frequently for physical needs 11/01/2024 7:56 AM EDT Patricia Butt RN * Modified Jesi Question Answer Date of Assessment Author Activity 2 11/01/2024 12:23 PM EDT Oleg Haque RN Respiration 2 11/01/2024 12:23 PM EDT Oleg Haque RN Circulation 2 11/01/2024 12:23 PM EDT Oleg Haque RN Consciousness 2 11/01/2024 12:23 PM EDT Oleg Springer RN Oxygen Saturation 2 11/01/2024 12:23 PM EDT Oleg Haque RN Modified Jsei Score 10 11/01/2024 12:23 P M EDT Oleg Haque RN * Modified Malnutrition Screening Tool (MST) [...] as of this encounter Mental Status * Pond Agitation Sedation Scale Question Answer Entry Date Author Pond Agitation Sedation Scale (RASS) -2 11/01/2024 1:14 PM EDT Oleg Haque RN * Kris Coma Scale Question Answer Entry Date Author Best Eye Response Spontaneous 11/01/2024 7:56 AM EDT Patricia Butt RN Best Verbal Response Oriented 11/01/2024 7:56 AM E DT Patricia Butt RN Best Motor Response Follows commands 11/01/2024 7:56 A M EDT Patricia Butt RN Kris Coma Scale Score 15 11/01/2024 7:56 AM EDT Patricia Butt RN * Modified Jesi Question Answer Entry Date Author Activity 2 11/01/2024 12:23 PM EDT Oleg Haque RN Respiration 2 11/01/2024 12:23 PM EDT Oleg Haque RN Circulation 2 11/01/2024 12:23 PM EDT Oleg Haque RN Consciousness 2 11/01/2024 12:23 PM EDT Oleg Springer RN Oxygen Saturation 2 11/01/2024 12:23 PM EDT Oleg Haque RN Modified Jesi Score 10 11/01/2024 12:23 P M EDT Oleg Haque RN documented in this encounter Discharge Summaries [...] She presented as a direct admission from [facility] on 10/30/2024 with severe, sharp, left-sided chest pain radiating to the left arm, associated with dizziness, shortness of breath, nausea, and vomiting following her daily infusion therapy. At [place], troponin was 390 and chest X-ray showed mild fluid overload. She was started on heparin infusion and transferred for higher level of care. On arrival to [facility], troponin was 337, hemoglobin 9.7, BNP 77, [...] recurrent obstruction Follow-up / Referrals: Cardiology: Debo Mcdonough, scheduled 11/14/2024 Urology: For Costello management and [...] 11/14/2024 3:25 PM Christina Rodriguez CNP [facility] 11/20/2024 2:30 PM Delphine Du NP [facility] 11/27/2024 2:15 PM Santa Wall CNP [facility] URO Second Fl 12/04/2024 10:00 AM Katie Altamirano MD [facility] Your medication list START taking these [...] as: Tylenol ALBUTEROL INHL ergocalciferol 1.25 MG (61058 Units) capsule Commonly known as: Vitamin D-2 escitalopram 20 mg tablet Commonly known as: Lexapro fentaNYL 25 mcg/hr Commonly known as: Duragesic fentaNYL 12 mcg/hr Commonly known as: Duragesic HYDROcodone-acetaminophen 5-325 mg tablet Commonly known as: [place] hydrocortisone 10 mg tablet Commonly known as: [...] Medications These medications were sent to [facility] - [place], [place] - [address] [place] [address] [place] [address], [facility] [address] aspirin 81 mg chewable tablet atorvastatin 80 mg tablet clopidogrel 75 mg tablet metoclopramide 10 mg tablet metoprolol succinate XL 25 mg 24 hr tablet [place] is allergic to codeine, nsaids (non-steroidal anti-inflammatory drug), and adhesive. Disposition: [place]-Health Care [facility] [place] (06) Discharge Condition: Stable Code Status: Full [...] was 43 minutes. Signed Mauricio Garcia MD [facility] 11/07/2024 2:48 PM CC: MD Evette documented in this encounter Discharge Instructions * Discharge Instr - AVS First Page* Karley Leslie RN - 11/02/2024 7:21 AM EDT -Please notify physician or advanced practice provider with any questions or concerns regarding your medical condition(s). -If you need immediate medical attention, please dial [phone] or go to your closest emergency department. [...] cholesterol);PO diet regular as tolerated. Intakes variable. [place], small meals. ONS. Dietary nutrition supplements BID (breakfast & dinner); Boost Glucose Control; Chocolate; 8 oz;Oral Dietary nutrition supplements Lunch; Gelatein; Van Zandt; 4 oz; Oral [id number]-[id number]-PDGPCU only Adult Cyclic 3-in-1 TPN: 2,300 mL, [...] 11/06/2024 10:30 AM EDT Infusion Center Hematology/Oncology [address] [place] [address] [place] [address] Hodges dressing and cap change;Labs as needed per patient 11/10/2024 2:15 PM EDT Appointment [facility] Endoscopy - ENDO [address] [place] [address] [place] [address] [place] [address] EGD and tube exchange failure to thrive nausea and vomiting 11/13/2024 10:45 AM EDT Infusion Center Hematology/Oncology [address] [place] [address] [place] [address] Hodges dressing and cap change;Labs as needed per patient 11/20/2024 9:15 AM EDT Infusion Center Hematology/Oncology [address] [place] [address] [place] [address] Hodges dressing and cap change;Labs as needed per patient 11/27/2024 9:00 AM EDT Infusion Center Hematology/Oncology [address] [place] [address] [place] [address] Hodges dressing and cap change;Labs as needed per patient 11/30/2024 8:30 AM EDT [facility] Gastroenterology [address] [id number] Georgina Barkley MD [facility] [address] [id number] HPN / VIRTUAL 12/04/2024 9:15 AM EDT Infusion Center Hematology/Oncology [address] [place] [address] [place] [address] Hodges dressing and cap change;Labs as needed [...] Everywhere. * Indwelling Urinary Catheter Care Adult Oqvh-sb-Ctlv (Emirati) documented in this encounter Medications at Time [...] 11/07/2024 5 ergocalciferol (Vitamin D-2) 1.25 MG (64662 Units) capsule Take 50,000 Units by mouth 1 (one) time per week. 5 fentaNYL (Duragesic) 12 mcg/hr Place 1 patch on the skin every 3rd (third) day. Takes 12 mcg and 25 mcg together every 3 days 5 HYDROcodone-acet aminophen (Lewisville) 5-325 mg tablet Take 2 tablets by mouth every 4 (four) hours if needed for moderate-severe pain (4-10 pain score). 5 documented as of this encounter Progress Notes * Deepika Diallo - 11/07/2024 2:20 PM EDT discharge planning: to Home with [address] [facility] Patient came to this admission from their private residence in the community; they are reported to be managing their own TPN needs at home, with supplies being provided through [facility]. 1345 - Patient is discharging with a Costello, which is new this admission; Patient agreeable to [facility], no preference of provider, agreeable to mass referral - [facility] referral sent; awaiting replies [address] only accepting [facility] provider; added them to AVS 1512 AVS sent to [address], via CarePort system 1613 Patient had costello removed, still appropriate to have [facility] nursing; updated AVS sent to [address], viaMerchant View system * Christina Rodriguez, BIOPHYSICS TEACHER - 11/07/2024 12:56 PM EDT Images from [...] placed at bedside by urology. Follow-up in OPsetting to workup dysfunctional voiding. Chest pain completely resolved during encounter, and patient complained of slight tenderness in the right groin region. 11/03/2024 Patient was seen and examined at bedside, overnight had pseudoaneurysmal complication in the right groin after catheterization s/p pseudoaneurysm repair by vascular surgery. Patient is doing well today, with pain downtrending from 6 to 0 out of 10. Groin is beater tender after surgery, and GONSALO drain with [...] who came as a direct admission from [facility] due to chest pain. Patient states that [...] 117/51 -- -- -- -- -- -- 11/06/24 2008 124/57 36.6 ??C (97.9 ??F) Temporal 84 [...] Value Ventricular Rate 91 Atrial Rate 91 VT Interval 134 QRS DURATION 88 QT Interval 386 QTC CALCULATION(BAZETT) 474 P [place] 63 R-[place] 35 T Wave [place] 46 Impression Sinus rhythm with Premature supraventricular complexes Otherwise normal ECG When compared with ECG of 04-NOV-2024 13:40, Premature supraventricular complexes are now Present No results found for: CKTOTAL , CKMB , CKMBINDEX , TROPONINI Limited Echo (TTE) w/wo Limited Doppler, Color Flow, Imaging Agent, Strain, 3D, Bubble Study Result Date: 10/31/2024 1 1 [facility] Heart Station [address] [place] [address] [phone] (fax) Echocardiogram-[facility] Name: JUAN KONG Study Date: 10/31/2024 11:16 AM B/P: 106 mmHg/67 mmHg HR: 70 bpm Date of : 1990 [facility]. Age: 34 year(s) Patient Room: [...] Procedure Staff Reading Group: [facility] Human Resource Professional: DAVID Kearney, RDCS Ordering Physician: [place] RITTER [...] for pt to see us in our [facility] on 11/14/24. Rest of care per [...] MD, 1 patch at 11/05/24 1739 HYDROcodone-acetaminophen ([place]) 5-325 mg per tablet 1 tablet, 1 tablet, oral, q4h PRN, 1 tablet at 11/03/24 1011 OR HYDROcodone-acetaminophen ([place]) 5- 325 mg per tablet 2 tablet, [...] Dunn MD - 11/07/2024 6:36 AM EDT [facility] Vascular Surgery DAILY PROGRESS NOTE Subjective [...] Units 11/07/24 0450 11/06/24 0550 11/05/24 0348 11/04/24 2017 11/04/24 1338 SODIUM mmol/L 139 139 139 137 [...] on TPN presents a direct admission from [facility] with chief complaint of chest pain. She [...] infiltrated over the right femoral artery. A 5-Montenegrin Terumo sheath was placed in right femoral [...] was maintained at >250 seconds. A 5 Montenegrin Cordis XB 3.0 guide was engaged to the left main. I decided to proceed with IVUS. I then advanced a Runthrough wire to the distal left anterior descending. Next, I advanced a Closet Couture IVUS catheter. IVUS imaging was performed and [...] infiltrated over the right femoral artery. A 6-Montenegrin sheath was placed in right femoral artery. Coronary angiography was performed with a JL4 and then repeated after IC nitroglycerin 50 mcg x 2. At this time, it was apparent that the LAD had a moderate stenosis and IVUS and iFR were performed. Heparin anticoagulation was used for this procedure. ACT was maintained at >250 seconds. A 6 Montenegrin xb3 was engaged to the Lmain. I [...] MD General Surgery PGY-1 For non-urgent questions, PastBook Chat may be used 0600 - 1800, M-F. For urgent concerns, please call [phone], or ask the milking machine operator to connect you to the on-call out clerk. For after-hours concerns, please page [phone], or ask the milking machine operator to connect you to the on-call out clerk. Cosigned by Dominic Chappell DO at 11/07/2024 [...] Level of Function Prior Function Level of Morris: Independent with ADLs and functional transfers, Independent [...] the chair for support without cues from typewriter repairer. 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 No routine or PRN bowel [...] PO diet regular as tolerated. Intakes variable. Oxford, small meals. ONS. Dextrose 200 g AA [...] Once Comments: Please send Old Fashioned Hot [place] entree, with a side of green beans; [...] 11/02/24223411/01/24 1519 Dietary nutrition supplements Lunch; Gelatein; Van Zandt; 4 oz; Oral Until discontinued Comments: When diet advances Question Answer Comment Deliver with Lunch Select supplement: Gelatein Flavor Van Zandt Strength: 4 oz Route Oral 11/01/24 1519 [...] ideal body weight (59.3 kg) Calorie needs: 8527-7592 kcals/day based on 25-30 kcal/kg Protein needs: [...] of Nutrition and Dietetics (AND) and the [place] Society of Enteral and Parenteral Nutrition (ASPEN). Treatment Plan: HPN schedule (MWF) Minor adjustments made based on current labs with plan to titrate to home order. Na Phos 30->20 mmol Continue current diet, snacks & ONS Goals: Advance TF to goal rate Weight maintenance Maintain visceral protein Nutrition-related labs (magnesium, phosphorus, BMP) wnl To reach the Clinical Dietitian, please utilize SpoonRocket chat Wednesday-Wednesday from 8AM-4PM or call extension [phone]. For weekends (Wednesday-Wednesday) and hols, the Clinical Dietitian can be reached via pager [phone]) from 9AM-3PM. The Clinical Nutrition Department is unable to respond to SpoonRocket chat messages on Sundays and s. [1] Allergies Allergen Reactions Codeine Nausea And Vomiting Nsaids (Non-Steroidal Anti-Inflammatory Drug) GI intolerance Adhesive Rash * Eduarda Bravo PA-C - 11/06/2024 9:03 AM EDT Images from the original note were not included. [facility] Surgical Intensive Care Unit Progress Note [...] Value Ventricular Rate 74 Atrial Rate 74 VT Interval 138 QRS DURATION 84 QT Interval 454 QTC CALCULATION(BAZETT) 503 P [place] 54 R-[place] 41 T Wave [place] 77 Impression Normal sinus rhythm T abnormalities consider high lateral ischemia Mild ST elevation in V2 and V3 , consider acute septal injury Abnormal ECG Confirmed by Griffin Diaz (102) on 11/02/2024 10:58:13 PM Assessment TThe patient is a 34 y.o. female who presented with an NSTEMI, was taken to the laboratory monitor x2 and hasa an expanding right groin [...] (placed patch every 72hours). Resume home PRN Lewisville 5-325 Q4H, PRN 650 mg Q8H -On [...] to 0 out of 10. Groin is beater tender after surgery, and GONSALO drain with [...] who came as a direct admission from [facility] due to chest pain. Patient states that [...] Value Ventricular Rate 100 Atrial Rate 100 VT Interval 132 QRS DURATION 94 QT Interval 382 QTC CALCULATION(BAZETT) 492 P [place] 60 R-[place] 34 T Wave [place] 58 Impression Normal sinus rhythm Statement not [...] 1 1 [facility] Heart Station [address] [place] [address] [phone] (fax) Echocardiogram-[facility] Name: JUAN KONG Study Date: 10/31/2024 11:16 AM B/P: 106 mmHg/67 mmHg HR: 70 bpm Date of : 1990 [facility]. Age: 34 year(s) Patient Room: [...] Procedure Staff Reading Group: [facility] Human Resource Professional: DAVID Kearney, RDCS Ordering Physician: KY RITTER [...] Pena DO Internal Medicine Resident, PGY-2 [facility] 8:20 AM 11/06/24 [1] Current Facility-Administered Medications: acetaminophen (Tylenol) tablet 650 mg, 650 mg, oral, q8h PRN, HENNY Sanon-C, 650 mg at 11/05/24 1633 albuterol 90 mcg/actuation inhaler 2 puff, 2 puff, inhalation, q6h PRN, Debbie Luna BIOPHYSICS TEACHER aspirin EC tablet 81 mg, 81 mg, [...] syringe 30 mg, 30 mg, subcutaneous, BID, iSd Cruz PA-C, 30 mg at 11/05/24 2336 escitalopram [...] Dee MD, 25mcg at 11/06/24 0700 HYDROcodone-acetaminophen ([place]) 5-325 mg per tablet 1 tablet, 1 tablet, oral, q4h PRN, 1 tablet at 11/03/24 1011 OR HYDROcodone-acetaminophen ([place]) 5- 325 mg per tablet 2 tablet, [...] 5 mg, oral, Nightly PRN, Debbie Luna, BIOPHYSICS TEACHER methocarbamol (Robaxin) tablet 750 mg, 750 mg, [...] PRN, Rosa Willoughby PA-C, 1 tablet at 11/03/242 [CANCELED] Insert peripheral IV, , , Once AND [CANCELED] Saline lock IV, , , Once AND sodium chloride flush 10 mL, 10 mL, intravenous, q8h PRN, Debbie Luna, BIOPHYSICS TEACHER sucralfate (Carafate) tablet 1 g, 1 g, oral, Before meals & nightly, Rosa Willoughby PA-C, 1 g at 11/05/24 2106 topiramate (Topamax) tablet 100 mg, 100 mg, oral, BID, Rosa Willoughby PA-C, 100 mg at 11/05/24 2336 traZODone (Desyrel) tablet 100 mg, 100 mg, oral, Nightly, Rosa Willoughby PA-C, 100 mg at 11/05/24 2335 trimethobenzamide (Tigan) injection 200 mg, 200 mg, intramuscular, q6h PRN, Debbie Luna BIOPHYSICS TEACHER, 200 mg at 11/03/24 0018 verapamil (Calan) [...] combination Sebastian Peña MD, ScM, MSc Cardiac Hazardous Material Technician Email: [email or web address] * Anna Etienne MD - 11/06/2024 7:38 AM EDT Images from the original note were not included. [facility] Vascular Surgery DAILY PROGRESS NOTE Subjective [...] MD General Surgery PGY-4 For non-urgent questions, Epic Chat may be used 0600 - 1800, M-F. For urgent concerns, please call [phone], or ask the milking machine operator to connect you to the on-call out clerk. For after-hours concerns, please page [phone], or ask the milking machine operator to connect you to the on-call out clerk. Cosigned by Dominic Chappell DO at 11/06/2024 1:53 PM EDT * Mikayla Jennings PA-C - 11/05/2024 2:14 PM EDT Images from the original note were not included. [facility] Vascular Surgery DAILY PROGRESS NOTE Subjective [...] from last 7 days Lab Units 11/05/24 0348 11/04/24201611/04/24 1338 11/04/24 0505 11/03/24 0446 SODIUM [...] Wound Care x 2513 For non-urgent questions, PastBook Chat may be used 0600 - 1800, M-F. For urgent concerns, please call [phone], or ask the milking machine operator to connect you to the on-call out clerk. For after-hours concerns, please page [phone], or ask the milking machine operator to connect you to the on-call out clerk. * Christina Rodriguez CNP - 11/05/2024 11:00 [...] placed at bedside by urology. Follow-up in OPsetting to workup dysfunctional voiding. Chest pain completely resolved during encounter, and patient complained of slight tenderness in the right groin region. 11/03/2024 Patient was seen and examined at bedside, overnight had pseudoaneurysmal complication in the right groin after catheterization s/p pseudoaneurysm repair by vascular surgery. Patient is doing well today, with pain downtrending from 6 to 0 out of 10. Groin is beater tender after surgery, and GONSALO drain with [...] who came as a direct admission from [facility] due to chest pain. Patient states that [...] Value Ventricular Rate 100 Atrial Rate 100 VT Interval 132 QRS DURATION 94 QT Interval 382 QTC CALCULATION(BAZETT) 492 P [place] 60 R-[place] 34 T Wave [place] 58 Impression Normal sinus rhythm Statement not [...] 1 1 [facility] Heart Station [address] [place] [address] [phone] (fax) Echocardiogram-[facility] Name: JUAN KONG Study Date: 10/31/2024 11:16 AM B/P: 106 mmHg/67 mmHg HR: 70 bpm Date of : 1990 [facility]. Age: 34 year(s) Patient Room: [...] Procedure Staff Reading Group: [facility] Human Resource Professional: DAVID Kearney, RDCS Ordering Physician: KY RITTER [...] along Discussed plan with pt, primary RN, yard associate Dr. Alejandro and corporate trainer Dr. Altamirano. Christina Rodriguez APRN-BETH [facility] Cardiovascular Medicine [1] Current Facility-Administered Medications: [...] tablet 80 mg, 80 mg, oral, Nightly, HENNY Hendrickson-Elroy, 80 mg at 11/04/24 2244 clopidogrel (Plavix) [...] Dee MD, 25mcg at 11/05/24 1446 HYDROcodone-acetaminophen ([place]) 5-325 mg per tablet 1 tablet, 1 tablet, oral, q4h PRN, 1 tablet at 11/03/24 1011 OR HYDROcodone-acetaminophen ([place]) 5- 325 mg per tablet 2 tablet, [...] 5 mg, oral, Nightly PRN, Debbie Luna, [facility] methocarbamol (Robaxin) tablet 750 mg, 750 mg, oral, 4x daily, Rosa Willoughby PA-C, 750 mg at 11/05/24 1356 metoclopramide (Reglan) tablet 10 mg, 10 mg, oral, Daily PRN, Debbie Luna BIOPHYSICS TEACHER, 10 mg at 11/04/24 1302 metoprolol succinate [...] mEq, 20 mEq, oral, q1h PRN, HENNY Hendrickson-C potassium chloride IVPB [...] 4 tablet, 1,000 mg, oral, q4h PRN, HENNY Hendrickson-Elroy [CANCELED] Insert peripheral IV, , , Once [...] from the original note were not included. [facility] Vascular Surgery DAILY PROGRESS NOTE Subjective [...] 1834 11/03/24 1323 11/03/24 0446 11/03/24 0007 11/02/24 2002 WBC AUTO 10*3/uL 3.79* -- -- 7.60 [...] infiltrated over the right femoral artery. A 6-Montenegrin sheath was placed in right femoral artery. Coronary angiography was performed with a JL4 and then repeated after IC nitroglycerin 50 mcg x 2. At this time, it was apparent that the LAD had a moderate stenosis and IVUS and iFR were performed. Heparin anticoagulation was used for this procedure. ACT was maintained at >250 seconds. A 6 Montenegrin xb3 was engaged to the Lmain. I [...] informed consent. she was brought to the laboratory monitor in a fasting state. The left wrist area was prepped and draped in usual fashion. Micropuncture technique was used for access in the radial artery. A 5-Montenegrin x 11 cm sheath was placed. Verapamil was given through the sheath, and heparin was administered intravenously. A 5 Montenegrin JR4 diagnostic catheter was advanced and this [...] catheter was then downsized to a 4 Montenegrin JR4 diagnostic catheter however this also was not able to engage the right coronary artery. Catheter was exchanged to a JR4 diagnostic catheter which could not engage the left coronary artery. Catheter was exchanged to a 4 Montenegrin JL 3.5 diagnostic catheter which eventually was able to engage the left coronary artery. Angiography was performed in multiple views. Catheter was exchanged over the wire to a 4 Montenegrin 3DRC catheter. Multiple attempts were made to [...] PA-C Vasular Surgery and Wound Care x [phone] For non-urgent questions, PastBook Chat may be used 0600 - 1800, M-F. For urgent concerns, please call [phone], or ask the milking machine operator to connect you to the on-call out clerk. For after-hours concerns, please page [phone], or ask the milking machine operator to connect you to the on-call out clerk. * Marie Alejandro MD - 11/04/2024 8:53 [...] to 0 out of 10. Groin is beater tender after surgery, and GONSALO drain with [...] who came as a direct admission from [facility] due to chest pain. Patient states that [...] Value Ventricular Rate 74 Atrial Rate 74 VT Interval 138 QRS DURATION 84 QT Interval 454 QTC CALCULATION(BAZETT) 503 P [place] 54 R-[place] 41 T Wave [place] 77 Impression Normal sinus rhythm T abnormalities [...] 1 1 [facility] Heart Station [address] [place] [address] [phone] (fax) Echocardiogram-[facility] Name: JUAN KONG Study Date: 10/31/2024 11:16 AM B/P: 106 mmHg/67 mmHg HR: 70 bpm Date of : 1990 [facility]. Age: 34 year(s) Patient Room: [...] Procedure Staff Reading Group: [facility] Human Resource Professional: DAVID Kearney, RDCS Ordering Physician: KY RITTER [...] infiltrated over the right femoral artery. A 6-Montenegrin sheath was placed in right femoral artery. Coronary angiography was performed with a JL4 and then repeated after IC nitroglycerin 50 mcg x 2. At this time, it was apparent that the LAD had a moderate stenosis and IVUS and iFR were performed. Heparin anticoagulation was used for this procedure. ACT was maintained at >250 seconds. A 6 Montenegrin xb3 was engaged to the L[place]. I [...] informed consent. she was brought to the laboratory monitor in a fasting state. The left wrist area was prepped and draped in usual fashion. Micropuncture technique was used for access in the radial artery. A 5-Montenegrin x 11 cm sheath was placed. Verapamil was given through the sheath, and heparin was administered intravenously. A 5 Montenegrin JR4 diagnostic catheter was advanced and this [...] catheter was then downsized to a 4 Montenegrin JR4 diagnostic catheter however this also was not able to engage the right coronary artery. Catheter was exchanged to a JR4 diagnostic catheter which could not engage the left coronary artery. Catheter was exchanged to a 4 Montenegrin JL 3.5 diagnostic catheter which eventually was able to engage the left coronary artery. Angiography was performed in multiple views. Catheter was exchanged over the wire to a 4 Montenegrin 3DRC catheter. Multiple attempts were made to [...] least in part, completed using a voice copyholder system. Every effort was made to ensure accuracy. However, inadvertent computerized copyholder errors may be present. Lisa Pena DO Internal Medicine Resident, PGY-2 [facility] 8:53 AM 11/04/24 Addendum Pt was reported to have chest pain and diaphoresis. EKG unremarkable, in fact st elevations are no longer present. Will add verapamil and recommended blood transfusions given hemoglobin < 8 Marie Alejandro MD PGY-6 Hospitality Aide [facility] Pager # [phone] [1] Current Facility-Administered Medications: acetaminophen (Tylenol) tablet 650 mg, 650 mg, oral, q8h PRN, Sid Cruz PA-C Adult Cyclic 3-in-1 TPN, 2,300 mL, intravenous, Cyclic TPN, Kaye Craig RD, Last Rate: 159 mL/hr at 11/04/24 [...] PA-C, 1 patch at 11/03/24 1128 HYDROcodone-acetaminophen ([place]) 5-325 mg per tablet 1 tablet, 1 tablet, oral, q4h PRN, 1 tablet at 11/03/24 1011 OR HYDROcodone-acetaminophen ([place]) 5- 325 mg per tablet 2 tablet, 2 tablet, oral, q4h PRN, Ky Ritter MD, 2 tablet at 11/04/24 0336 hydrocortisone (Cortef) tablet 10 mg, 10 mg, oral, Daily, Debbiejossie Luna, BIOPHYSICS TEACHER, 10 mg at 11/03/24 1014 HYDROmorphone (Dilaudid) injection 0.2 mg, 0.2 mg, intravenous, q3h PRN, Sid Cruz PA-C, 0.2 mg at 11/04/24 0512 hydrOXYzine pamoate (Vistaril) capsule 50 mg, 50 mg, oral, Nightly PRN, Debbie Luna, BIOPHYSICS TEACHER insulin lispro (HumaLOG) injection 0-5 Units, 0-5 [...] 5 mg, oral, Nightly PRN, Debbie Luna, BIOPHYSICS TEACHER methocarbamol (Robaxin) tablet 750 mg, 750 mg, [...] injection 10 mg, 10 mg, intravenous, Once, Rabbarbara Browndiqi, MD prochlorperazine (Compazine) injection 5 mg, 5 mg, intravenous, Once PRN, Robin Luz MD sennosides-docusate sodium (Kadie-Colace) 8.6-50 mg per tablet 1 tablet, 1 tablet, oral, Nightly PRN, Rosa Willoughby PA-C, 1 tablet at 11/03/242 sod phos di, mono-K phos mono (K [...] PRN, Debbie Luna CNP, 50 mg at 11/03/24 1633 traZODone (Desyrel) tablet 100 mg, 100 mg, oral, Nightly, Rosa Willoughby PA-C, 100 mg at 11/03/24 2202 trimethobenzamide (Tigan) injection 200 mg, 200 mg, intramuscular, q6h PRN, Debbie Luna CNP, 200 mg at 11/03/24 0018 Cosigned by Salty Hyatt MD at 11/05/2024 5:02 PM EDT Associated attestation - Salty Hyatt MD - 11/05/2024 5:02 PM EDT Agree with the assessment and plan as documented by the yard associate * Michael Dunn MD - 11/03/2024 6:19 PM EDT Images from the original note were not included. [facility] Vascular Surgery DAILY PROGRESS NOTE Subjective [...] 11/02/2024 10:58:13 PM Cardiac catheterization PROCEDURE PHYSICIAN: Wail Collins MD Clinical Presentation: 34 y.o. Female [...] infiltrated over the right femoral artery. A 6-Montenegrin sheath was placed in right femoral artery. Coronary angiography was performed with a JL4 and then repeated after IC nitroglycerin 50 mcg x 2. At this time, it was apparent that the LAD had a moderate stenosis and IVUS and iFR were performed. Heparin anticoagulation was used for this procedure. ACT was maintained at >250 seconds. A 6 Montenegrin xb3 was engaged to the [place]. I [...] cardiac catheterization. Assistants: Cardiovascular Fellow Dr Janet Soot. Procedure Performed: Coronary angiogram. Left heart catheterization. Administration of intraarterial nitroglycerin to treat radial artery spasm. Access into the left radial artery under ultrasound guidance. Methods: Procedure was explained to the patient with risks and benefits; she signed informed consent. she was brought to the laboratory monitor in a fasting state. The left wrist area was prepped and draped in usual fashion. Micropuncture technique was used for access in the radial artery. A 5-Montenegrin x 11 cm sheath was placed. Verapamil was given through the sheath, and heparin was administered intravenously. A 5 Montenegrin JR4 diagnostic catheter was advanced and this [...] catheter was then downsized to a 4 Montenegrin JR4 diagnostic catheter however this also was not able to engage the right coronary artery. Catheter was exchanged to a JR4 diagnostic catheter which could not engage the left coronary artery. Catheter was exchanged to a 4 Montenegrin JL 3.5 diagnostic catheter which eventually was able to engage the left coronary artery. Angiography was performed in multiple views. Catheter was exchanged over the wire to a 4 Montenegrin 3DRC catheter. Multiple attempts were made to [...] PGY-1 Vascular Surgery Service For non-urgent questions, PastBook Chat may be used 0600 - 1800, M-F. For urgent concerns, please call [phone], or ask the milking machine operator to connect you to the on-call out clerk. For after-hours concerns, please page [phone], or ask the milking machine operator to connect you to the on-call out clerk. Cosigned by Dominic Chappell DO at 11/06/2024 [...] to 0 out of 10. Groin is beater tender after surgery, and GONSALO drain with [...] who came as a direct admission from [facility] due to chest pain. Patient states that [...] -- -- 85 -- 99 % -- 11/02/24 2352 -- -- -- 89 17 -- -- 11/02/24 2328 118/61 -- -- 81 11 -- -- 11/02/244 126/69 -- -- 87 13 -- -- 11/02/242257 125/69 -- -- 80 15 -- -- 11/02/242244 125/61 -- -- 80 15 -- -- 11/02/242228 128/57 -- -- 88 15 -- -- 11/02/244 136/66 36.2 ??C (97.2 ??F) Temporal 90 [...] -- -- 85 19 100 % -- 09/18/25 1845 100/74 -- -- 87 23 -- -- 11/02/24 1842 104/63 -- -- 88 (!) 9 100 % -- 11/02/24 1840 92/59 -- -- 83 15 100 % -- 11/02/24 1830 103/56 -- -- 90 14 100 % -- 11/02/24 1815 101/66 -- -- 81 14 100 % -- 11/02/24 1801 100/56 -- -- 82 12 100 % -- 11/02/24 175 109/69 -- -- 68 12 100 % -- 11/02/24 175 108/68 -- -- 72 13 98 % -- 11/02/24 1748 105/67 -- -- 68 15 -- -- 11/02/24 1745 106/70 -- -- 66 13 -- -- 11/02/24 174 115/87 -- -- 71 13 -- -- [...] Value Ventricular Rate 74 Atrial Rate 74 VT Interval 138 QRS DURATION 84 QT Interval 454 QTC CALCULATION(BAZETT) 503 P [place] 54 R-[place] 41 T Wave [place] 77 Impression Normal sinus rhythm T abnormalities [...] 1 [facility] Heart Station [address] [place] [address] [phone] (fax) Echocardiogram-[facility] Name: JUAN KONG Study Date: 10/31/2024 11:16 AM B/P: 106 mmHg/67 mmHg HR: 70 bpm Date of : 1990 [facility] Age: 34 year(s) Patient Room: [facility] Weight: 181 lb. Gender: Female Patient Status: [...] Procedure Staff Reading Group: [facility] Human Resource Professional: DAVID Kearney, RDCS Ordering Physician: KY RITTER [...] infiltrated over the right femoral artery. A 6-Montenegrin sheath was placed in right femoral artery. Coronary angiography was performed with a JL4 and then repeated after IC nitroglycerin 50 mcg x 2. At this time, it was apparent that the LAD had a moderate stenosis and IVUS and iFR were performed. Heparin anticoagulation was used for this procedure. ACT was maintained at >250 seconds. A 6 Montenegrin xb3 was engaged to the [place]. I [...] informed consent. she was brought to the laboratory monitor in a fasting state. The left wrist area was prepped and draped in usual fashion. Micropuncture technique was used for access in the radial artery. A 5-Montenegrin x 11 cm sheath was placed. Verapamil was given through the sheath, and heparin was administered intravenously. A 5 Montenegrin JR4 diagnostic catheter was advanced and this [...] catheter was then downsized to a 4 Montenegrin JR4 diagnostic catheter however this also was not able to engage the right coronary artery. Catheter was exchanged to a JR4 diagnostic catheter which could not engage the left coronary artery. Catheter was exchanged to a 4 Montenegrin JL 3.5 diagnostic catheter which eventually was able to engage the left coronary artery. Angiography was performed in multiple views. Catheter was exchanged over the wire to a 4 Montenegrin 3DRC catheter. Multiple attempts were made to [...] least in part, completed using a voice copyholder system. Every effort was made to ensure accuracy. However, inadvertent computerized copyholder errors may be present. Lisa Pena DO Internal Medicine Resident, PGY-2 [facility] 11:18 AM 11/03/24 [1] Current Facility-Administered Medications: [...] patch, transdermal, q72h, Rosa Willoughby PA-C HYDROcodone-acetaminophen ([place]) 5-325 mg per tablet 1 tablet, 1 tablet, oral, q4h PRN, 1 tablet at 11/03/24 1011 OR HYDROcodone-acetaminophen ([place]) 5- 325 mg per tablet 2 tablet, 2 tablet, oral, q4h PRN, Ky Ritter MD, 2 tablet at 11/03/24 0608 hydrocortisone (Cortef) tablet 10 mg, 10 mg, oral, Daily, Debbie Luna BIOPHYSICS TEACHER, 10 mg at 11/03/24 1014 hydrOXYzine pamoate (Vistaril) capsule 50 mg, 50 mg, oral, Nightly PRN, Debbie Luna, BIOPHYSICS TEACHER insulin lispro (HumaLOG) injection 0-5 Units, 0-5 [...] mg, 5 mg, oral, Nightly PRN, Debbie kl, BIOPHYSICS TEACHER methocarbamol (Robaxin) tablet 750 mg, 750 mg, oral, 4x daily, Rosa Willoughby PA-C, 750 mg at 11/03/24 1013 metoclopramide (Reglan) tablet 10 mg, 10 mg, oral, Daily PRN, Debbie Luna, BIOPHYSICS TEACHER, 10 mg at 11/03/24 0840 metoprolol succinate [...] 2 tablet, 500 mg, oral, q4h PRN, Roas Willoughby PA-C sod phos di, mono-K phos mono (K Phos Neutral) tablet 4 tablet, 1,000 mg, oral, q4h PRN, Rosa Willoughby PA-C [CANCELED] Insert peripheral IV, , , Once AND [CANCELED] Saline lock IV, , , Once AND sodium chloride flush 10 mL, 10 mL, intravenous, q8h PRN, Debbie Luna BIOPHYSICS TEACHER sucralfate (Carafate) tablet 1 g, 1 g, oral, Before meals & nightly, Rosa Willoughby PA-C, 1 g at 11/03/24 1013 topiramate (Topamax) tablet 100 mg, 100 mg, oral, BID, Rosa Willoughby PA-C, 100 mg at 11/03/24 1013 traMADol (Ultram) tablet 50 mg, 50 mg, oral, q6h PRN, Debbie Luna BIOPHYSICS TEACHER, 50 mg at 11/03/24 0838 traZODone (Desyrel) tablet 100 mg, 100 mg, oral, Nightly, Rosa Willoughby PA-C trimethobenzamide (Tigan) injection 200 mg, 200 mg, intramuscular, q6h PRN, Debbie Luna BIOPHYSICS TEACHER, 200 mg at 11/03/24 0018 Cosigned by [...] coronary intervention Katie Altamirano MD, MPH, FACC, [facility], [facility] Interventional Cardiology Pager Email: [email or web address] * Sid Cruz PA-C - 11/03/2024 8:12 AM EDT Images from the original note were not included. [facility] Surgical Intensive Care Unit Progress Note [...] thrive who presented as a transfer from [place]. She had an NSTEMI and underwent a [...] Value Ventricular Rate 74 Atrial Rate 74 VT Interval 138 QRS DURATION 84 QT Interval 454 QTC CALCULATION(BAZETT) 503 P [place] 54 R-[place] 41 T Wave [place] 77 Impression Normal sinus rhythm T abnormalities consider high lateral ischemia Mild ST elevation in V2 and V3 , consider acute septal injury Abnormal ECG Confirmed by Griffin Diaz (102) on 11/02/2024 10:58:13 PM Assessment TThe patient is a 34 y.o. female who presented with an NSTEMI, was taken to the laboratory monitor x2 and hasa an expanding right groin [...] (placed patch every 72hours). Resume home PRN [place] 5-325 Q4H, PRN 650 mg Q8H -On [...] original note were not included. Hospital Medicine Daily Progress Note - 11/02/2024 1:27 PM; Room: [address] [place] [address] Admission: 10/30/2024 6:28 PM; Length of stay: 3 days THE HOSPITALIST TEAM PREFERS TO USE Sp[employer] CHAT FOR NON-URGENT COMMUNICATION 7AM- 7PM. IF I DO NOT RESPOND WITHIN 20 MINUTES OR URGENT MATTERS, PLEASE CALL THROUGH THE RESIDENT IN DIAGNOSTIC RADIOLOGY. FROM 7PM-7AM, PLEASE PAGE [phone](COVR). 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 she was brought to the laboratory monitor in a fasting state. The left wrist area was prepped and draped in usual fashion. Micropuncture technique was used for access in the radial artery. A 5-Montenegrin x 11 cm sheath was placed. Verapamil was given through the sheath, and heparin was administered intravenously. A 5 Montenegrin JR4 diagnostic catheter was advanced and this [...] catheter was then downsized to a 4 Montenegrin JR4 diagnostic catheter however this also was not able to engage the right coronary artery. Catheter was exchanged to a JR4 diagnostic catheter which could not engage the left coronary artery. Catheter was exchanged to a 4 Montenegrin JL 3.5 diagnostic catheter which eventually was able to engage the left coronary artery. Angiography was performed in multiple views. Catheter was exchanged over the wire to a 4 Montenegrin 3DRC catheter. Multiple attempts were made to [...] Self Care () Signed Ky Ritter MD Hospital Medicine 11/02/2024 1:27 PM * SAHIL ShettyW - 11/02/2024 9:55 AM EDT Discharge Planning Patient is medically ready for discharge. MIRYAM received information from [facility] patient was being served through their [facility]. MIRYAM sent referral to them through [facility]. * Lisa Pena DO - 11/02/2024 9:08 [...] who came as a direct admission from [facility] due to chest pain. Patient states that [...] Value Ventricular Rate 76 Atrial Rate 76 VT Interval 132 QRS DURATION 84 QT Interval 444 QTC CALCULATION(BAZETT) 499 P [place] 72 R-[place] 50 T Wave [place] 89 Impression Normal sinus rhythm T cahnges, consider anterior and high lateral ischemia Prolonged QT Abnormal ECG Confirmed by Griffin Diaz (102) on 11/01/2024 11:37:39 PM No results found for: CKTOTAL , CKMB , CKMBINDEX , TROPONINI Limited Echo (TTE) w/wo Limited Doppler, Color Flow, Imaging Agent, Strain, 3D, Bubble Study Result Date: 10/31/2024 1 1 [facility] Heart Station [address] [place] [address] [phone] (fax) Echocardiogram-[facility] Name: JUAN KONG Study Date: 10/31/2024 11:16 AM B/P: 106 mmHg/67 mmHg HR: 70 bpm Date of : 1990 [facility]. Age: 34 year(s) Patient Room: [...] Procedure Staff Reading Group: [facility] Human Resource Professional: Raegan Cardona, BS, RDCS Ordering Physician: KY [...] informed consent. she was brought to the laboratory monitor in a fasting state. The left wrist area was prepped and draped in usual fashion. Micropuncture technique was used for access in the radial artery. A 5-Montenegrin x 11 cm sheath was placed. Verapamil was given through the sheath, and heparin was administered intravenously. A 5 Montenegrin JR4 diagnostic catheter was advanced and this [...] catheter was then downsized to a 4 Montenegrin JR4 diagnostic catheter however this also was not able to engage the right coronary artery. Catheter was exchanged to a JR4 diagnostic catheter which could not engage the left coronary artery. Catheter was exchanged to a 4 Montenegrin JL 3.5 diagnostic catheter which eventually was able to engage the left coronary artery. Angiography was performed in multiple views. Catheter was exchanged over the wire to a 4 Montenegrin 3DRC catheter. Multiple attempts were made to [...] least in part, completed using a voice copyholder system. Every effort was made to ensure accuracy. However, inadvertent computerized copyholder errors may be present. Lisa Pena DO Internal Medicine Resident, PGY-2 [facility] 9:08 AM 11/02/24 [1] Current Facility-Administered Medications: [...] MD, 5,000 Units at 11/02/24 0556 HYDROcodone-acetaminophen ([place]) 5-325 mg per tablet 1 tablet, 1 tablet, oral, q4h PRN, Debbie Luna CNP, 1 tablet at 11/02/24 0556 hydrocortisone (Cortef) tablet 10 mg, 10 mg, oral, Daily, Debbie Pirkl, BIOPHYSICS TEACHER, 10 mg at 11/02/24 0856 hydrOXYzine pamoate (Vistaril) capsule 50 mg, 50 mg, oral, Nightly PRN, Debbiejossie Luna, BIOPHYSICS TEACHER insulin lispro (HumaLOG) injection 0-5 Units, 0-5 Units, subcutaneous, TID with meals AND insulin lispro (HumaLOG) injection 0-4 Units, 0-4 Units, subcutaneous, Nightly, Debbie kl, BIOPHYSICS TEACHER levothyroxine (Synthroid, Levoxyl) tablet 75 mcg, 75 mcg, oral, Daily before breakfast, Debbie Pirkl, BIOPHYSICS TEACHER, 75 mcg at 11/02/24 0556 liothyronine (Cytomel) tablet 5 mcg, 5 mcg, oral, Daily, Debbie kl, BIOPHYSICS TEACHER, 5 mcg at 11/02/24 0857 melatonin tablet 5 mg, 5 mg, oral, Nightly PRN, Debbie Luna, BIOPHYSICS TEACHER methocarbamol (Robaxin) tablet 750 mg, 750 mg, oral, 4x daily, Debbie Pirkl, BIOPHYSICS TEACHER, 750 mg at 11/02/24 0856 metoclopramide (Reglan) tablet 10 mg, 10 mg, oral, Daily PRN, Debbie Luna, BIOPHYSICS TEACHER metoprolol succinate XL (Toprol-XL) 24 hr split tablet 12.5 mg, 12.5 mg, oral, Daily, Ky Ritter MD, 12.5 mg at 11/02/24 0856 mirtazapine (Remeron) tablet 45 mg, 45 mg, oral, Nightly, Debbiejossie Mahmoodkl, BIOPHYSICS TEACHER, 45 mg at 11/01/24 2223 pantoprazole (ProtoNix) EC tablet 40 mg, 40 mg, oral, BID AC, Debbie kl, BIOPHYSICS TEACHER, 40 mg at 11/02/24 0556 sodium chloride 0.9 % infusion, 100 mL/hr, intravenous, Continuous, Janet Soto MD, Stopped at 11/02/24 0841 Insert peripheral IV, , , Once AND Saline lock IV, , , Once AND sodium chloride flush 10 mL, 10 mL, intravenous, q8h PRN, Debbie Luna, BIOPHYSICS TEACHER sucralfate (Carafate) tablet 1 g, 1 g, oral, Before meals & nightly, Debbie Pirkl, BIOPHYSICS TEACHER, 1 g at 11/02/24 0556 topiramate (Topamax) tablet 100 mg, 100 mg, oral, BID, Debbie Pirkl, BIOPHYSICS TEACHER, 100 mg at 11/02/24 0856 traMADol (Ultram) tablet 50 mg, 50 mg, oral, q6h PRN, Debbie Pirkl, BIOPHYSICS TEACHER, 50 mg at 11/02/24 0859 traZODone (Desyrel) tablet 100 mg, 100 mg, oral, Nightly, Debbie Pirkl, BIOPHYSICS TEACHER, 100 mg at 11/01/24 215 trimethobenzamide (Tigan) injection 200 mg, 200 mg, intramuscular, q6h PRN, Debbie Pirkl, BIOPHYSICS TEACHER, 200 mg at 11/01/24 2019 Cosigned by [...] and/or stent placement. Katie Altamirano MD, MPH, [facility], [facility], [facility] Interventional Cardiology Pager Email: [email or web address] * LIA Shetty - 11/01/2024 10:45 AM EDT SW consult for Home TPN supplies upon discharge Patient will be discharged with continued need for home TPN services. Before admission service provided by [facility]. SW sent referral to them through [facility] to confirm ability to continue services. * Ky Ritter MD - 11/01/2024 7:33 AM EDT Images from the original note were not included. / Hospital Medicine Daily Progress Note - 11/01/2024 7:33 AM; Room: [address] [place] [address] Admission: 10/30/2024 6:28 PM; Length of stay: 2 days THE HOSPITALIST TEAM PREFERS TO USE [employer] CHAT FOR NON-URGENT COMMUNICATION 7AM- 7PM. IF I DO NOT RESPOND WITHIN 20 MINUTES OR URGENT MATTERS, PLEASE CALL THROUGH THE RESIDENT IN DIAGNOSTIC RADIOLOGY. FROM 7PM-7AM, PLEASE PAGE [phone](COVR). Code Status: Full Code Barriers to Discharge: [...] Intake/Output Summary (Last 24 hours) at 11/01/2024 0784 Last data filed at 11/01/2024 0540 Gross [...] & Plan NSTEMI (non-ST elevated myocardial infarction) ([facility]) -Trop 390 at OSH, now downward [...] complication, without long-term current use of insulin ([facility]) - Patient currently taking metformin at [...] LDL 73 10/31/2024 No results found for: [id number] , IRON , TIBC , C3 , [...] informed consent. she was brought to the laboratory monitor in a fasting state. The left wrist area was prepped and draped in usual fashion. Micropuncture technique was used for access in the radial artery. A 5-Montenegrin x 11 cm sheath was placed. Verapamil was given through the sheath, and heparin was administered intravenously. A 5 Montenegrin JR4 diagnostic catheter was advanced and this [...] catheter was then downsized to a 4 Montenegrin JR4 diagnostic catheter however this also was not able to engage the right coronary artery. Catheter was exchanged to a JR4 diagnostic catheter which could not engage the left coronary artery. Catheter was exchanged to a 4 Montenegrin JL 3.5 diagnostic catheter which eventually was able to engage the left coronary artery. Angiography was performed in multiple views. Catheter was exchanged over the wire to a 4 Montenegrin 3DRC catheter. Multiple attempts were made to [...] 1 1 [facility] Heart Station [address] [place] [address] [phone] (fax) Echocardiogram-[facility] Name: JUAN KONG Study Date: 10/31/2024 11:16 AM B/P: 106 mmHg/67 mmHg HR: 70 bpm Date of : 1990 Location: [facility] Height: 66 in. Age: 34 year(s) Patient [...] Procedure Staff Reading Group: [facility] Human Resource Professional: DAVID Kearney, RDCS Ordering Physician: KY RITTER Wall Motion Scores -1 - hyperkinesia, 0 - not evaluated, 1 - normal, 2 - hypokinesia, 3 - akinesia, 4 - dyskinesia Discharge Planning Expected Discharge Disposition: Home or Self Care (01) Signed Ky Ritter MD Hospital Medicine 11/01/2024 7:33 AM * Kaye Craig [...] -> D50 25 g given @ 1228 03/19 NPO -> Mar read 126 ~15 minutes later. 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 No routine or PRN bowel medications ordered at this time. H/o narcotic use. This admission, morphine given at 2010 & norco 5-325 mg given 2225 last [...] PO diet regular as tolerated. Intakes variable. [place], small meals. ONS. Dextrose 200 g AA [...] ideal body weight (59.3 kg) Calorie needs: 0886-1274 kcals/day based on 25-30 kcal/kg Protein needs: [...] of Nutrition and Dietetics (AND) and the [place] Society of Enteral and Parenteral Nutrition (ASPEN). [...] To reach the Clinical Dietitian, please utilize SpoonRocket chat Wednesday-Wednesday from 8AM-4PM or call extension [phone]. For weekends (Wednesday-Wednesday) and holidays, the Clinical Dietitian can be reached via pager [phone]) from 9AM-3PM. The Clinical Nutrition Department is unable to respond to [employer] chat messages on Sundays and s. [1] Allergies Allergen Reactions Codeine Nausea And Vomiting Nsaids (Non-Steroidal Anti-Inflammatory Drug) GI intolerance Adhesive Rash * Jami Bridges RN - 10/31/2024 12:28 PM EDT 3D Designer called to room as patient states her [...] Progress Note - 10/31/2024 7:18 AM; Room: [address] [place] [address] Admission: 10/30/2024 6:28 PM; Length of stay: 1 days THE HOSPITALIST TEAM PREFERS TO USE [employer] CHAT FOR NON-URGENT COMMUNICATION 7AM- 7PM. IF I DO NOT RESPOND WITHIN 20 MINUTES OR URGENT MATTERS, PLEASE CALL THROUGH THE RESIDENT IN DIAGNOSTIC RADIOLOGY. FROM 7PM-7AM, PLEASE PAGE [phone](COVR). Code Status: Full Code Barriers to Discharge: [...] & Plan NSTEMI (non-ST elevated myocardial infarction) ([facility]/HCC) -Trop 390 at OSH, now downward trending -Continue heparin gtt -Cardiology consulted -Pending TTE, cath Prolonged Q-T interval on ECG -QT mildly prolonged -Continue Tigan for now and avoid other QT prolonging agents Type 2 diabetes mellitus without complication, without long-term current use of insulin ([facility]) - Patient currently taking metformin at home [...] TSH 3.46 10/30/2024 No results found for: [id number] , IRON , TIBC , C3 , C4 , MISAEL , CANCA , ASO , PSA , CEA , CA125 , CA199 , AFP , CA153 Imaging ECG 12 lead Sinus rhythm with sinus arrhythmia with occasional Premature ventricular complexes Prolonged QT Abnormal ECG No previous ECGs available Discharge Planning Expected Discharge Disposition: Home or Self Care () Signed Ky Ritter MD [facility] Medicine 10/31/2024 7:18 AM documented in this encounter H&P Notes * Janet Soto MD - 11/02/2024 1:30 PM EDT H&P reviewed. The patient was examined and there are no changes to the H&P. Procedure reviewed with patient, risks including stroke, [place], discussed. Ms Kong is agreeable to coronary [...] who came as a direct admission from [facility] due to chest pain. Patient states that [...] 1 patch, transdermal, Every 72 hours HYDROcodone-acetaminophen ([place]) 5-325 mg tablet 2 tablets, oral, Every [...] -- -- 88 21 96 % -- 10/31/24 195 110/61 -- -- 70 12 98 % [...] Value Ventricular Rate 76 Atrial Rate 76 VT Interval 132 QRS DURATION 84 QT Interval 444 QTC CALCULATION(BAZETT) 499 P [place] 72 R-[place] 50 T Wave [place] 89 Impression Normal sinus rhythm Prolonged QT Abnormal ECG When compared with ECG of 31-OCT-2024 08:43, No significant change was found No results found for: CKTOTAL , CKMB , CKMBINDEX , TROPONINI Limited Echo (TTE) w/wo Limited Doppler, Color Flow, Imaging Agent, Strain, 3D, Bubble Study Result Date: 10/31/2024 1 1 [facility] Heart Station [address] [place] [address] [phone] (fax) Echocardiogram-[facility] Name: JUAN KONG Study Date: 10/31/2024 11:16 AM B/P: 106 mmHg/67 mmHg HR: 70 bpm Date of : 1990 [facility] Age: 34 year(s) Patient Room: [...] Procedure Staff Reading Group: [facility] Human Resource Professional: DAVID Kearney, RDCS Ordering Physician: KY RITTER [...] on TPN presents a direct admission from [facility] with chief complaint of chest pain. She [...] infiltrated over the right femoral artery. A 5-Montenegrin Terumo sheath was placed in right femoral [...] was maintained at >250 seconds. A 5 Montenegrin Cordis XB 3.0 guide was engaged to the left main. I decided to proceed with IVUS. I then advanced a Runthrough wire to the distal left anterior descending. Next, I advanced a Closet Couture IVUS catheter. IVUS imaging was performed and [...] 31-OCT-2024 08:43, No significant change was found Echocardiogram-[facility] Name: JUAN KONG Study Date: 10/31/2024 11:16 AM B/P: 106 mmHg/67 mmHg HR: 70 bpm Date of : 1990 Location: [facility] Height: 66 in. Age: 34 year(s) Patient [...] least in part, completed using a voice copyholder system. Every effort was made to ensure accuracy. However, inadvertent computerized copyholder errors may be present. Lisa Pena DO Internal Medicine Resident, PGY-2 [facility] 4:26 PM 11/01/24 Maria D Bailey MD PGY-5 Hospitality Aide [facility] Pager: [phone] [1] No family history on file. [2] [...] the morning. ergocalciferol (Vitamin D-2) 1.25 MG (74917 Units) capsule Take 50,000 Units by mouth 1 (one) time per week. escitalopram (Lexapro) 20 mg tablet Take 20 mg by mouth in the morning. fentaNYL (Duragesic) 12 mcg/hr Place 1 patch on the skin every 3rd (third) day. Takes 12 mcg and 25mcg together every 3 days fentaNYL (Duragesic) 25 mcg/hr Place 1 patch on the skin every 3rd (third) day. HYDROcodone-acetaminophen ([place]) 5-325 mg tablet Take 2 tablets by [...] Procedure reviewed with patient, risks including stroke, [place], , bleeding and infection complications discussed.Ms. Kong [...] who came as a direct admission from [facility] due to chest pain. Patient states that [...] 1 patch, transdermal, Every 72 hours HYDROcodone-acetaminophen ([place]) 5-325 mg tablet 2 tablets, oral, Every [...] Value Ventricular Rate 83 Atrial Rate 83 VT Interval 144 QRS DURATION 88 QT Interval 422 QTC CALCULATION(BAZETT) 495 P [place] 62 R-[place] 19 T Wave [place] 56 Impression Sinus rhythm with sinus arrhythmia [...] QT Abnormal ECG No previous ECGs available Echocardiogram-[facility] Name: JUAN KONG Study Date: 10/31/2024 11:16 AM B/P: 106 mmHg/67 mmHg HR: 70 bpm Date of : 1990 Location: [facility] Height: 66 in. Age: 34 year(s) Patient [...] least in part, completed using a voice copyholder system. Every effort was made to ensure accuracy. However, inadvertent computerized copyholder errors may be present. Lisa Pena DO Internal Medicine Resident, PGY-2 [facility] 7:50 AM 10/31/24 [1] No family history [...] the morning. ergocalciferol (Vitamin D-2) 1.25 MG (74199 Units) capsule Take 50,000 Units by mouth 1 (one) time per week. escitalopram (Lexapro) 20 mg tablet Take 20 mg by mouth in the morning. fentaNYL (Duragesic) 12 mcg/hr Place 1 patch on the skin every 3rd (third) day. Takes 12 mcg and 25mcg together every 3 days fentaNYL (Duragesic) 25 mcg/hr Place 1 patch on the skin every 3rd (third) day. HYDROcodone-acetaminophen ([place]) 5-325 mg tablet Take 2 tablets by [...] Procedure reviewed with patient, risks of stroke, [place], discussed. Ms Kong is agreeable to proceed [...] who came as a direct admission from [facility] due to chest pain. Patient states that [...] 1 patch, transdermal, Every 72 hours HYDROcodone-acetaminophen ([place]) 5-325 mg tablet 2 tablets, oral, Every [...] Value Ventricular Rate 83 Atrial Rate 83 VT Interval 144 QRS DURATION 88 QT Interval 422 QTC CALCULATION(BAZETT) 495 P [place] 62 R-[place] 19 T Wave [place] 56 Impression Sinus rhythm with sinus arrhythmia [...] QT Abnormal ECG No previous ECGs available E[facility]ocardiogram-[facility] Name: JUAN KONG Study Date: 10/31/2024 11:16 AM B/P: 106 mmHg/67 mmHg HR: 70 bpm Date of : 1990 Location: [facility] Height: 66 in. Age: 34 year(s) Patient [...] least in part, completed using a voice copyholder system. Every effort was made to ensure accuracy. However, inadvertent computerized copyholder errors may be present. Lisa Pena DO Internal Medicine Resident, PGY-2 [facility] 7:50 AM 10/31/24 [1] No family history [...] the morning. ergocalciferol (Vitamin D-2) 1.25 MG (55464 Units) capsule Take 50,000 Units by mouth 1 (one) time per week. escitalopram (Lexapro) 20 mg tablet Take 20 mg by mouth in the morning. fentaNYL (Duragesic) 12 mcg/hr Place 1 patch on the skin every 3rd (third) day. Takes 12 mcg and 25mcg together every 3 days fentaNYL (Duragesic) 25 mcg/hr Place 1 patch on the skin every 3rd (third) day. HYDROcodone-acetaminophen ([place]) 5-325 mg tablet Take 2 tablets by [...] by mouth at bedtime. Cosigned by Katie Altamirnao MD at 10/31/2024 1:34 PM EDT * Debbie Luna, BIOPHYSICS TEACHER - 10/30/2024 7:14 PM EDT Images from the original note were not included. Hospital Medicine History and Physical 10/30/2024 8:57 PM THE HOSPITALIST TEAM PREFERS TO USE [employer] FOR NON-URGENT COMMUNICATION 7AM- 7PM. IF I DO NOT RESPOND WITHIN 20 MINUTES OR URGENT MATTERS, PLEASE CALL THROUGH THE RESIDENT IN DIAGNOSTIC RADIOLOGY. FROM 7PM-7AM, PLEASE PAGE [phone](COVR). Chief Complaint Direct admission from [facility] with CP History of Present Illness Juan [...] on TPN presents a direct admission from [facility] with chief complaint of chest pain. Patient [...] is a 7 out of 10. At [facility], x-ray was completed showing mild fluid overload. Troponin was found to be elevated at 390. Cardiology team was contacted and they recommended transfer for higher level of care. She was also started on a heparin infusion at that time. Upon arrival to [facility], repeat labs were completed showing troponin 337, [...] complication, without long-term current use of insulin ([facility]) - Patient currently taking metformin at home, [...] this hospital stay by a member of [facility]. Past Medical History Medical History[1] [...] Physical Activity: Insufficiently Active (06/30/2023) Received from [facility] Exercise Vital Sign Days of Exercise per Week: 3 days Minutes of Exercise per Session: 10 min Stress: Stress Concern Present (06/30/2023) Received from [facility] - Occupational Stress Questionnaire Feeling of Stress : Rather much Social Connections: Moderately Integrated (06/30/2023) Received from [facility] Social Connection and Isolation Panel [NHANES] Frequency of Communication with Friends and Family: Twice a week Frequency of Social Gatherings with Friends and Family: Twice a week Attends Rastafarian Services: More than 4 times per year [...] Procedure Abnormality Status --------- ------ CBC auto differential[[id number]] Abnormal Final result Please view results for these tests on the individual orders. HIGH SENSITIVITY TROPONIN I ANTI-XA (HEPARIN LEVEL) POCT GLUCOSE METER Imaging ECG 12 lead Sinus rhythm with sinus arrhythmia with occasional Premature ventricular complexes Prolonged QT Abnormal ECG No previous ECGs available [facility]igned [facility] 10/30/2024 8:57 PM [1] [...] the morning. ergocalciferol (Vitamin D-2) 1.25 MG (12918 Units) capsule Take 50,000 Units by mouth 1 (one) time per week. escitalopram (Lexapro) 20 mg tablet Take 20 mg by mouth in the morning. fentaNYL (Duragesic) 12 mcg/hr Place 1 patch on the skin every 3rd (third) day. Takes 12 mcg and 25mcg together every 3 days fentaNYL (Duragesic) 25 mcg/hr Place 1 patch on the skin every 3rd (third) day. HYDROcodone-acetaminophen ([place]) 5-325 mg tablet Take 2 tablets by [...] from the original note were not included. [facility] Department of Urology CONSULTATION Reason for [...] to thrive. Patient was a transfer from [facility] due to an NSTEMI. Underwent cardiac catheterizations [...] issues with retention. Was [facility]-good specialist for questionable [...] Physical Activity: Insufficiently Active (06/30/2023) Received from [facility] Exercise Vital Sign Days of Exercise per Week: 3 days Minutes of Exercise per Session: 10 min Stress: Stress Concern Present (06/30/2023) Received from [facility] [place] [facility] - Occupational Stress Questionnaire Feeling of Stress : Rather much Social Connections: Moderately Integrated (06/30/2023) Received from [facility] Social Connection and Isolation Panel [NHANES] Frequency of Communication with Friends and Family: Twice a week Frequency of Social Gatherings with Friends and Family: Twice a week Attends Rastafarian Services: More than 4 times per year [...] infiltrated over the right femoral artery. A 6-Montenegrin sheath was placed in right femoral artery. Coronary angiography was performed with a JL4 and then repeated after IC nitroglycerin 50 mcg x 2. At this time, it was apparent that the LAD had a moderate stenosis and IVUS and iFR were performed. Heparin anticoagulation was used for this procedure. ACT was maintained at >250 seconds. A 6 Montenegrin xb3 was engaged to the [place]. I [...] informed consent. she was brought to the laboratory monitor in a fasting state. The left wrist area was prepped and draped in usual fashion. Micropuncture technique was used for access in the radial artery. A 5-Montenegrin x 11 cm sheath was placed. Verapamil was given through the sheath, and heparin was administered intravenously. A 5 Montenegrin JR4 diagnostic catheter was advanced and this [...] catheter was then downsized to a 4 Montenegrin JR4 diagnostic catheter however this also was not able to engage the right coronary artery. Catheter was exchanged to a JR4 diagnostic catheter which could not engage the left coronary artery. Catheter was exchanged to a 4 Montenegrin JL 3.5 diagnostic catheter which eventually was able to engage the left coronary artery. Angiography was performed in multiple views. Catheter was exchanged over the wire to a 4 Montenegrin 3DRC catheter. Multiple attempts were made to [...] 81 mg, 81 mg, oral, Daily, Sid McReynaillin, PA-C, 81 mg at 11/03/24 1319 atorvastatin (Lipitor) tablet 80 mg, 80 mg, oral, Nightly, Rosa Willoughby PA-C clopidogrel (Plavix) tablet 75 mg, 75 mg, oral, Daily, Sid Cruz, PA-C, 75 mg at 11/03/24 1319 glucose [...] PA-C, 1 patch at 11/03/24 1128 HYDROcodone-acetaminophen ([place]) 5-325 mg per tablet 1 tablet, 1 tablet, oral, q4h PRN, 1 tablet at 11/03/24 1011 OR HYDROcodone-acetaminophen ([place]) 5- 325 mg per tablet 2 tablet, 2 tablet, oral, q4h PRN, Ky Ritter MD, 2 tablet at 11/03/24 1319 hydrocortisone (Cortef) tablet 10 mg, 10 mg, oral, Daily, Debbie Luna CNP, 10 mg at 11/03/24 1014 HYDROmorphone (Dilaudid) injection 0.2 mg, 0.2 mg, intravenous, q3h PRN, Sid Cruz PA-C hydrOXYzine pamoate (Vistaril) capsule 50 mg, 50 mg, oral, Nightly PRN, Debbie Luna, BIOPHYSICS TEACHER insulin lispro (HumaLOG) injection 0-5 Units, 0-5 Units, subcutaneous, TID with meals AND insulin lispro (HumaLOG) injection 0-4 Units, 0-4 Units, subcutaneous, Nightly, Rosa Wilolughby PA-C levothyroxine (Synthroid, Levoxyl) tablet 75 mcg, [...] 5 mg, oral, Nightly PRN, Debbie Luna, BIOPHYSICS TEACHER methocarbamol (Robaxin) tablet 750 mg, 750 mg, [...] 10 mL, intravenous, q8h PRN, Debbie Pirkl, BIOPHYSICS TEACHER sucralfate (Carafate) tablet 1 g, 1 g, oral, Before meals & nightly, Rosa Willoughby PA-C, 1 g at 11/03/24 1013 topiramate (Topamax) tablet 100 mg, 100 mg, oral, BID, Rosa Willoughby PA-C, 100 mg at 11/03/24 1013 traMADol (Ultram) tablet 50 mg, 50 mg, oral, q6h PRN, Debbie Pirkl, BIOPHYSICS TEACHER, 50 mg at 11/03/24 0838 traZODone (Desyrel) tablet 100 mg, 100 mg, oral, Nightly, Rosa Willoughby PA-C trimethobenzamide (Tigan) injection 200 mg, 200 mg, intramuscular, q6h PRN, Debbie Pirkl, BIOPHYSICS TEACHER, 200 mg at 11/03/24 0018 [5] No family history on file. Cosigned by Nic Aviles MD at 11/10/2024 3:02 PM EDT * Miles Ramos MD - 11/02/2024 7:54 PM EDTAssociated Order(s): IP CONSULT TO VASCULAR SURGERY Images from the original note were not included. [facility] Vascular/Endovascular Surgery Residential Sales Manager Complaint R groin hematoma History and Present [...] Physical Activity: Insufficiently Active (06/30/2023) Received from [facility] Exercise Vital Sign Days of Exercise per Week: 3 days Minutes of Exercise per Session: 10 min Stress: Stress Concern Present (06/30/2023) Received from [facility] - Occupational Stress Questionnaire Feeling of Stress : Rather much Social Connections: Moderately Integrated (06/30/2023) Received from [facility] Social Connection and Isolation Panel [NHANES] Frequency of Communication with Friends and Family: Twice a week Frequency of Social Gatherings with Friends and Family: Twice a week Attends Rastafarian Services: More than 4 times per year [...] Objective Vital signs: Vitals: 11/02/24 1924 11/02/24 1927 11/02/24 1930 09/18/25 1945 BP: 114/59 (!) 122/95 93/57 103/59 BP Location: Patient Position: Pulse: 94 94 96 102 Resp: Temp: TempSrc: SpO2: 98% 98% 100% Weight: [...] 10/30/24 1911 WBC AUTO 10*3/uL 4.49 4.80 3.65* 4.32 HEMOGLOBIN g/dL 10.8* 11.3* 9.4* 9.7* HEMATOCRIT % 33.3* 34.6* 29.2* 29.6* PLATELETS AUTO 10*3/uL 292 300 235 272 NEUTROS PCT % -- -- -- 44.2 MONO PCT % -- -- -- 7.9 EOS PCT % -- -- -- 2.1 Results from last 7 days Lab Units 11/01/24 1010 10/31/24 0627 10/30/24 191 POTASSIUM mmol/L 4.6 4.0 3.7 CO2 mmol/L [...] infiltrated over the right femoral artery. A 6-Montenegrin sheath was placed in right femoral artery. Coronary angiography was performed with a JL4 and then repeated after IC nitroglycerin 50 mcg x 2. At this time, it was apparent that the LAD had a moderate stenosis and IVUS and iFR were performed. Heparin anticoagulation was used for this procedure. ACT was maintained at >250 seconds. A 6 Montenegrin xb3 was engaged to the [place]. I [...] informed consent. she was brought to the laboratory monitor in a fasting state. The left wrist area was prepped and draped in usual fashion. Micropuncture technique was used for access in the radial artery. A 5-Montenegrin x 11 cm sheath was placed. Verapamil was given through the sheath, and heparin was administered intravenously. A 5 Montenegrin JR4 diagnostic catheter was advanced and this [...] catheter was then downsized to a 4 Montenegrin JR4 diagnostic catheter however this also was not able to engage the right coronary artery. Catheter was exchanged to a JR4 diagnostic catheter which could not engage the left coronary artery. Catheter was exchanged to a 4 Montenegrin JL 3.5 diagnostic catheter which eventually was able to engage the left coronary artery. Angiography was performed in multiple views. Catheter was exchanged over the wire to a 4 Montenegrin 3DRC catheter. Multiple attempts were made to [...] the morning. ergocalciferol (Vitamin D-2) 1.25 MG (31257 Units) capsule Take 50,000 Units by mouth 1 (one) time per week. escitalopram (Lexapro) 20 mg tablet Take 20 mg by mouth in the morning. fentaNYL (Duragesic) 12 mcg/hr Place 1 patch on the skin every 3rd (third) day. Takes 12 mcg and 25mcg together every 3 days fentaNYL (Duragesic) 25 mcg/hr Place 1 patch on the skin every 3rd (third) day. HYDROcodone-acetaminophen ([place]) 5-325 mg tablet Take 2 tablets by [...] who came as a direct admission from [facility] due to chest pain. Patient states that [...] 1 patch, transdermal, Every 72 hours HYDROcodone-acetaminophen ([place]) 5-325 mg tablet 2 tablets, oral, Every [...] -- -- 74 11 97 % -- 10/31/242129 115/54 -- -- 94 15 98 % [...] Value Ventricular Rate 76 Atrial Rate 76 VT Interval 132 QRS DURATION 84 QT Interval 444 QTC CALCULATION(BAZETT) 499 P [place] 72 R-[place] 50 T Wave [place] 89 Impression Normal sinus rhythm Prolonged QT Abnormal ECG When compared with ECG of 31-OCT-2024 08:43, No significant change was found No results found for: CKTOTAL , CKMB , CKMBINDEX , TROPONINI Limited Echo (TTE) w/wo Limited Doppler, Color Flow, Imaging Agent, Strain, 3D, Bubble Study Result Date: 10/31/2024 1 1 [facility] Heart Station [address] [place] [address] [phone] (fax) Echocardiogram-[facility] Name: JUAN KONG Study Date: 10/31/2024 11:16 AM B/P: 106 mmHg/67 mmHg HR: 70 bpm Date of : 1990 [facility]. Age: 34 year(s) Patient Room: [...] Procedure Staff Reading Group: [facility] Human Resource Professional: DAVID Kearney, RDCS Ordering Physician: KY RITTER [...] on TPN presents a direct admission from [facility] with chief complaint of chest pain. She [...] infiltrated over the right femoral artery. A 5-Montenegrin Terumo sheath was placed in right femoral [...] was maintained at >250 seconds. A 5 Montenegrin Cordis XB 3.0 guide was engaged to the left main. I decided to proceed with IVUS. I then advanced a Runthrough wire to the distal left anterior descending. Next, I advanced a Closet Couture IVUS catheter. IVUS imaging was performed and [...] 31-OCT-2024 08:43, No significant change was found E[facility]ocardiogram-[facility] Name: JUAN KONG Study Date: 10/31/2024 11:16 AM B/P: 106 mmHg/67 mmHg HR: 70 bpm Date of : 1990 Location: [facility] Height: 66 in. Age: 34 year(s) Patient [...] least in part, completed using a voice copyholder system. Every effort was made to ensure accuracy. However, inadvertent computerized copyholder errors may be present. Lisa Pena DO Internal Medicine Resident, PGY-2 [facility] 4:26 PM 11/01/24 Maria D Bailey MD PGY-5 Hospitality Aide [facility] Pager: [phone] [1] No family history on file. [2] [...] the morning. ergocalciferol (Vitamin D-2) 1.25 MG (29376 Units) capsule Take 50,000 Units by mouth 1 (one) time per week. escitalopram (Lexapro) 20 mg tablet Take 20 mg by mouth in the morning. fentaNYL (Duragesic) 12 mcg/hr Place 1 patch on the skin every 3rd (third) day. Takes 12 mcg and 25mcg together every 3 days fentaNYL (Duragesic) 25 mcg/hr Place 1 patch on the skin every 3rd (third) day. HYDROcodone-acetaminophen ([place]) 5-325 mg tablet Take 2 tablets by [...] Additional Comments: Katie Altamirano MD, MPH, FACC, [facility], [facility] Interventional Cardiology Pager Email: [email or web address] * Lisa Pena DO - 10/31/2024 [...] who came as a direct admission from [facility] due to chest pain. Patient states that [...] 1 patch, transdermal, Every 72 hours HYDROcodone-acetaminophen ([place]) 5-325 mg tablet 2 tablets, oral, Every [...] Value Ventricular Rate 83 Atrial Rate 83 VT Interval 144 QRS DURATION 88 QT Interval 422 QTC CALCULATION(BAZETT) 495 P [place] 62 R-[place] 19 T Wave [place] 56 Impression Sinus rhythm with sinus arrhythmia [...] QT Abnormal ECG No previous ECGs available E[facility]ocardiogram-[facility] Name: JUAN KONG Study Date: 10/31/2024 11:16 AM B/P: 106 mmHg/67 mmHg HR: 70 bpm Date of : 1990 Location: [facility] Height: 66 in. Age: 34 year(s) Patient [...] least in part, completed using a voice copyholder system. Every effort was made to ensure accuracy. However, inadvertent computerized copyholder errors may be present. Lisa Pena DO Internal Medicine Resident, PGY-2 [facility] 7:50 AM 10/31/24 [1] No family history [...] the morning. ergocalciferol (Vitamin D-2) 1.25 MG (77115 Units) capsule Take 50,000 Units by mouth 1 (one) time per week. escitalopram (Lexapro) 20 mg tablet Take 20 mg by mouth in the morning. fentaNYL (Duragesic) 12 mcg/hr Place 1 patch on the skin every 3rd (third) day. Takes 12 mcg and 25mcg together every 3 days fentaNYL (Duragesic) 25 mcg/hr Place 1 patch on the skin every 3rd (third) day. HYDROcodone-acetaminophen ([place]) 5-325 mg tablet Take 2 tablets by [...] presentation would be considered a Type I [place]/NSTEMI. This may or may not have been related to coronary vasospasm caused by the IV Compazine. Continue IV heparin drip. Invasive coronary angiography is indicated; will adjust pharmacological therapy depending on results. Treatment cardiac morbidities as clinically appropriate Katie Altamirano MD, MPH, [facility], [facility], [facility] Interventional Cardiology Pager Email: [email or web address] documented in this encounter Nursing Notes [...] Deepika Matos RN Rapid Response Team Nurse [phone] 11/07/2024 4:54 PM * Suleiman Borges RN [...] voiced no concerns at this time. The typewriter repairer urged theprimary RN to call the rapid team if any concerns arise overnight. Suleiman Borges RN Rapid Response Team Nurse [phone] 11/07/2024 12:52 AM * Fern Snider RN [...] Bedside report given to DEE High from Evelyne and DEE Sidhu. paving and surfacing labourer RN presented site to bedside RN. Bedside RN visualized site and palpated site to ensure there was no hematoma or bruising, and femoral site appears flat. Both bedside RN and laboratory monitor RN mutually agreed that the site presents normal. paving and surfacing labourer RN and bedside RN either palpated or used a doppler to assess pulses on the patient. * Alyce Ortega RN - 11/02/2024 8:30 PM EDT Pt brought to PRE-OP/pacu from laboratory monitor. Dr Whitlock holding pressure on right groin site. Pt on monitor. Report obtained. * Nathalie Hurd RN - 11/02/2024 8:13 PM EDT Report given to Thao AUCTION BLOCK CLERK, RN from [facility] Any medications or [...] given to DEE Gomez from DEE Shirley. paving and surfacing labourer RN presented site to bedside RN. Bedside RN visualized site and palpated site to ensure there was no hematoma or bruising, and femoral site appears flat. Both bedside RN and laboratory monitor RN mutually agreed that the site presents normal. paving and surfacing labourer RN and bedside RN either palpated or [...] Emery RN - 11/07/2024 1:32 PM EDT 3D Designer talked with patient about discharge planning, 3D Designer did offer HHC to patient for [facility] due to patient discharging with [facility]. Patient stated she has had [facility] in the past but her insurance is no longer accepting by them. Patient was agreeable to a mass referral to be set out to see who is accepting and who takes her insurance. 3D Designer notified SW. * Care Plan - Patricia [...] stability Outcome: Adequate for Discharge Flowsheets (Taken 11/07/2024 0721) Maintains hematologic stability: Assess for signs and [...] dizziness when up yesterday. Move out to [place]. Anticipate discharge home. cb Diet: Dietary Orders (From admission, onward) Start Ordered 11/04/24 0855 Special Kitchen Request Once Comments: Please send oatmeal with brown sugar, a bagel with cream cheese, and coffee with cream and sugar. Thank you! 11/04/24 0854 11/03/24 1335 Special Kitchen Request Once Comments: Please send Old Fashioned Hot [place] entree, with a side of green beans; a side salad with mozzarella cheese, croutons, and Ranch dressing, and a Sprite. Thank you! 11/03/24 1333 11/03/24 0878 Special Kitchen Request Once Comments: Please send oatmeal with brown sugar, Rice Krispies with milk, and coffee with cream and sugar. Thank you! 11/03/24 0852 11/02/242235 Regular Diet Heart Healthy/HTN, CABG,Stroke, (2gNA, low fat, low cholesterol) Diet effective now Question Answer Comment Room Service? Yes Fat restriction: Heart Healthy/HTN, CABG,Stroke, (2gNA, low fat, low cholesterol) 11/02/24223411/01/24 151 Dietary nutrition supplements Lunch; Gelatein; Van Zandt; 4 oz; Oral Until discontinued Comments: When diet advances Question Answer Comment Deliver with Lunch Select supplement: Gelatein Flavor [place] Strength: 4 oz Route Oral 11/01/24 1519 [...] for Consult? Resume primary Level of Consultation Medical Review Specialist assumes full responsibility 11/06/24 0844 Therapy Orders (From admission, onward) Start Ordered 11/06/24 0829 PT eval and treat Until therapy completed Question: Reason for PT? Answer: eval and treat 11/06/24 0828 11/06/24 0829 OT eval and treat Until therapy completed Question: Reason for OT? Answer: eval and treat 11/06/24 0828 * Care Plan - Radha Godoy RN [...] and behaviors that affect risk of falls [place] fall precautions as indicated by assessment Educate [...] Practitioner order if needed Discuss catheterization for life coach situations as appropriate Goal: Urinary catheter remains [...] sites i.e., indwelling lines, tubes and drains [facility] appropriate cooling/warming therapies per order Administer medications [...] and behaviors that affect risk of falls [facility] fall precautions as indicated by assessment Educate [...] secretions for changes in amount and color [facility] appropriate cooling/warming therapies per order Administer medications [...] within prescribed range Outcome: Progressing Flowsheets (Taken 11/05/2024 0800) Glucose maintained within prescribed range: Monitor blood [...] Maintains hematologic stability Outcome: Progressing Flowsheets (Taken 11/05/2024 0800) Maintains hematologic stability: Assess for signs and [...] sites i.e., indwelling lines, tubes and drains [facility] appropriate cooling/warming therapies per order Instruct and [...] was noted and manual pressure held by laboratory monitor DEE Stubbs over the hematoma site as well. Dr [place] informed and advised to continue holding pressure. At around 7 pm the hematoma was noted to be expanding. Dr Gilmore, the admissions assistant interventionalist was at bedside, evaluated the patient [...] was emergently taken to the OR with laboratory monitor team, and surgery at bedside. Patients family (mom and ) were updated on the situation. Patient will be admitted to SICU post-operatively. Janet Soto MD Hospitality Aide, PGY-4 [facility] 11/02/24 8:56 PM Cosigned by Tino [...] large hematoma. When I arrived to the Healthcare Applications Analyst I assessed the hematoma to be significant [...] PSEUDOANEURYSM (R) Operative Note Date: 11/02/2024 Location: [facility] OR Name: Juan Kong, : 1990, Diagnosis [...] 11/02/242135 Status To bulb suction 11/02/242135 Staff: Self Sealing Fuel Tank Repairer: Elicia Small RN; Dimitri Hearn RN Scrub [...] 6-0 Prolene sutures were placed in a [id number] manner, across the femoral artery luminal defects to obtain hemostasis, taking careful attention not to backwall obstruct the femoral artery. Good hemostasis was witnessed and the incision was packed with thrombin Gelfoam. Next attention was towards the subcutaneous empty space formed by the previous hematoma. The empty space and the wound was thoroughly irrigated using normal saline. A 10 Montenegrin flat GONSALO drain was placed at the [...] comfort level or baseline comfort level 11/02/2024 163 by Patricia Butt RN Outcome: Not Progressing [...] heart rate * Hospital Course - Josefina Lord - 11/02/2024 1:32 PM EDT Juan is a 34 year old female who was transferred to [facility] from [place] on 10/30 for chest pain. PMH is significant for HTN, HLD, asthma, IRCHAR, hypothyroidism, GERD, IBS, fibromyalgia, T2DM, median arcuate [...] which brought her to the hospital. At [place], chest xray showed mild fluid overload and [...] evacuation procedure. She is on fentanyl patches, [place], and will receive a one time dose of IVMorphine to control the pain. Patient is hemodynamically stable at this time. She is cleared for discharge from a medicine standpoint. Patient is to follow up with Cardiology and Urology in an outpatient setting. * Pre-Sedation Documentation - Janet Soto MD - 11/02/2024 1:31 PM EDT Patient: Juan Kong Procedure Information Date/Time: 11/02/241740 Procedure: Coronary angiography (Bilateral) Location: [facility] OCCUPATIONAL THERAPY PROGRAM DIRECTOR 3 / [facility]ULAR [facility] (Cath) Providers: Wali Collins [...] attending. Additional Equipment Requests Janet Soto MD Hospitality Aide, PGY-4 [facility] 11/02/24 1:31 PM Cosigned by Wali [...] pain today patient brought urgently back to Healthcare Applications Analyst * Assessment & Plan Note - Ky [...] pain today patient brought urgently back to Healthcare Applications Analyst * Assessment & Plan Note - Ky Ritter MD - 11/02/2024 1:29 PM EDT Associated Problem(s): Prolonged Q-T interval on ECG -QT mildly prolonged; read as 492 ms however calculation revealing 429 -Okay with reglan * Assessment & Plan Note - Ky Ritter MD - 11/02/2024 1:29 PM EDT Associated Problem(s): Type 2 diabetes mellitus without complication, without long-term current useof insulin ([facility]) - Patient currently taking metformin at home [...] resources Outcome: Adequate for Discharge Flowsheets (Taken 11/02/2024 0739) Discharge to home or other facility with appropriate resources: Identify barriers to discharge withpatient and caregiver Problem: Chronic Conditions and Co-morbidities Goal: Patient's chronic conditions and co-morbidity symptoms are monitored and maintained or improved Outcome: Adequate for Discharge Flowsheets (Taken 11/02/2024 0739) Care Plan - Patient's Chronic Conditions and [...] Status Interested Does the patient have a patient case manager assigned to them through their [...] with benadry and Tigan. Pain controlled with [place] and tramadol. * Care Plan - Patricia [...] from fall injury Outcome: Progressing Flowsheets (Taken 11/01/2024 075) Free from fall injury: Assess patient frequently [...] maintained or improved Outcome: Progressing Flowsheets (Taken 11/01/2024 075) Care Plan - Patient's Chronic Conditions and [...] Date/Time: 11/01/24 1300 Procedure: Coronary angiography Location: [facility] OCCUPATIONAL THERAPY PROGRAM DIRECTOR 3 / [facility] (Cath) Providers: Mitchell Agustin [...] attending. Additional Equipment Requests Janet Soto MD Hospitality Aide, PGY-4 [facility] 11/01/24 12:12 PM Cosigned by Mitchell [...] without complication, without long-term current useof insulin ([facility]) - Patient currently taking metformin at home [...] Date/Time: 10/31/24 1330 Procedure: Coronary angiography Location: [facility] OCCUPATIONAL THERAPY PROGRAM DIRECTOR 3 / [facility] (Cath) Providers: Tino Gilmore [...] without complication, without long-term current useof insulin ([facility]) - Patient currently taking metformin at home [...] Associated Problem(s): NSTEMI (non-ST elevated myocardial infarction) ([facility]/HCC) -Trop 390 at OSH, now downward [...] without complication, without long-term current useof insulin ([facility]) - Patient currently taking metformin at home, [...] Info) Description 11/20/2024 2:30 PM EDT Follow-Up [facility] Vascular and Endovascular Surgery [address] [place] [phone] Delphine Du NP [address] [facility] [address] [place], [place] [id number] 11/28/2024 11:00 AM EDT Follow-Up [facility] Cardiology [address] [place] [phone] Wali Collins MD [address] [place] [address] 12/04/2024 10:00 AM EDT Office Visit [facility] Heart at [facility] [address] [place] [address] Katie Altamirano MD [address] [place] [phone] documented as of this encounter Procedures Procedure [...] POCT glucose meter (11/07/2024 4:00 PM EDT) [facility] Glucose POC 106(H) 70 - 105 mg/dL 11/07/2024 4:12 PM EDT [facility] ([facility]) Comment:[email or web address] Blood Capillary blood specimen / Unknown 11/07/2024 4:00 PM EDT 11/07/2024 4:12 PM EDT Narrative [facility] ([facility]) - 11/07/2024 4:12 PM EDT Waived Testing in the ED is performed under the ED CLIA certificate #[id number]. us Mauricio Garcia MD LAB BLOOD ORDERABLES Final Resu lt Performing Organization Address City/[facility]/ZIP Co de Phone Number [facility] ([facility]) [address] [place] [address] * (ABNORMAL) POCT glucose meter (11/07/2024 11:55 AM EDT) Pathologist [facility] Glucose POC 121(H) 70 - 105 mg/dL 11/07/2024 12:06 PM EDT [facility] ([facility]) Comment:[email or web address] Blood Capillary blood specimen / Unknown 11/07/2024 11:55 AM EDT 11/07/2024 12:06 PM EDT Narrative [facility] ([facility]) - 11/07/2024 12:06 PM EDT Waived Testing in the ED is performed under the ED CLIA certificate #[id number]. us Mauricio Garcia MD LAB BLOOD ORDERABLES Final Resu lt Performing Organization Address [facility] Co de Phone Number [facility] ([facility]) [address] [place] [address] * ECG 12 lead (11/07/2024 11:48 AM EDT) Ventricular Rate 91 BPM GE MUSE Atrial Rate 91 BPM GE MUSE VT Interval 134 ms GE MUSE QRS DURATION 88 ms GE MUSE QT Interval 386 ms GE MUSE QTC CALCULATION(BAZE TT) 474 ms GE MUSE P [place] 63 degrees GE MUSE R-[place] 35 degrees GE MUSE T Wave [place] 46 degrees GE MUSE 11/07/2024 11:3 3 [...] ECG ORDERABLES Final Result Performing Organization Address City/[facility]/ZIP Co de Phone Number GE MUSE * (ABNORMAL) POCT glucose meter (11/07/2024 7:43 AM EDT) [facility] Glucose POC 118(H) 70 - 105 mg/dL 11/07/2024 7:58 AM EDT [facility] ([facility]) Comment:[email or web address] Blood Capillary blood specimen / Unknown 11/07/2024 7:43 AM EDT 11/07/2024 7:58 AM EDT Narrative [facility] ([facility]) - 11/07/2024 7:58 AM EDT Waived Testing in the ED is performed under the ED CLIA certificate #[id number]. us Mauricio Garcia MD LAB BLOOD ORDERABLES Final Resu lt Performing Organization Address City/[facility]/ZIP Co de Phone Number [facility] ([facility]) [address] [place] [address] * (ABNORMAL) CBC (11/07/2024 6:27 AM EDT) [facility] Auto WBC 4.21 4.00 - 10.60 10*3/uL 11/07/2024 7:01 AM EDT [facility] ([facility]) RBC 3.01(L) 3.80 - 5.00 10*6/uL 11/07/2024 7:01 AM EDT [facility] ([facility]) Hemoglobin 9.0(L) 12.0 - 15.0 g/dL 11/07/2024 7:01 AM EDT [facility] ([facility]) Hematocrit 26.9(L) 36.0 - 45.0 % 11/07/2024 7:01 AM EDT [facility] ([facility]) MCV 89.4 82.0 - 98.0 fL 11/07/2024 7:01 AM EDT [facility] ([facility]) MCH 29.9 27.0 - 33.0 pg 11/07/2024 7:01 AM EDT [facility] ([facility]) MCHC 33.5 32.0 - 35.0 g/dL 11/07/2024 7:01 AM EDT [facility] ([facility]) RDW 14.2 11.5 - 15.0 % 11/07/2024 7:01 AM EDT [facility] ([facility]) Platelets 206 150 - 400 10*3/uL 11/07/2024 7:01 AM EDT [facility] ([facility]) Blood Venous blood specimen / Unknown Existing Catheter / Unknown 11/07/2024 6:27 AM EDT 11/07/2024 6:45 AM EDT us Dominic Chappell DO LAB BLOOD ORDERABLES Final Re sult Performing Organization Address City/[facility]/ZIP Co de Phone Number [facility]) [address] [place] [address] * High Sensitivity Troponin I (11/07/2024 4:50 AM EDT) [facility] High Sensitivity Troponin I 10 <15 ng/L 11/07/2024 1:15 PM EDT [facility] ([facility]) Blood Venous blood specimen / Unknown Existing Catheter / Unknown 11/07/2024 4:50 AM EDT 11/07/2024 5:24 AM EDT us Mauricio Garcia MD LAB BLOOD ORDERABLES Final Resu lt [facility]) [address] [place] [address] * Calcium, ionized (11/07/2024 4:50 AM EDT) Calcium, Ion 1.16 1.15 - 1.33 mmol/L 11/07/2024 5:43 AM EDT [facility] RESPIRATORY THERAPY Blood Venous blood specimen / Unknown Existing Catheter / Unknown 11/07/2024 4:50 AM EDT 11/07/2024 5:38 AM EDT Eduarda GONZALEZC LAB BLOOD ORDERABLES Final Resu lt [facility] RESPIRATORY THERAPY [address] [place] [address], [place] * Phosphorus (11/07/2024 4:50 AM EDT) Phosphorus 4.7 2.5 - 5.0 mg/dL 11/07/2024 5:52 AM EDT [facility] ([facility]) Blood Venous blood specimen / Unknown Existing Catheter / Unknown 11/07/2024 4:50 AM EDT 11/07/2024 5:24 AM EDT Rosa GONZALEZC LAB BLOOD ORDERABLES Final R esult Performing Organization Address City/[facility]/ZIP Co de Phone Number [facility] ([facility]) [address] [place] [address] * Magnesium (11/07/2024 4:50 AM EDT) Magnesium 2.1 1.9 - 2.7 mg/dL 11/07/2024 5:52 AM EDT [facility] ([facility]) Blood Venous blood specimen / Unknown Existing Catheter / Unknown 11/07/2024 4:50 AM EDT 11/07/2024 5:24 AM EDT Rosa INMAN-C LAB BLOOD ORDERABLES Final R esult [facility] ([facility]) [address] [place] [address] * (ABNORMAL) Basic metabolic panel (11/07/2024 4:50 AM EDT) Sodium 139 136 - 145 mmol/L 11/07/2024 5:52 AM T [facility] ([facility]) Potassium 3.9 3.5 - 5.1 mmol/L 11/07/2024 5:52 AM EDT [facility] ([facility]) Chloride 105 98 - 107 mmol/L 11/07/2024 5:52 AM T [facility] ([facility]) CO2 28 21 - 31 mmol/L 11/07/2024 5:52 AM T [facility] ([facility]) BUN 14 7 - 25 mg/dL 11/07/2024 5:52 AM T [facility] ([facility]) Creatinine 0.52(L) 0.60 - 1.20 mg/dL 11/07/2024 5:52 AM T [facility] ([facility]) Glucose 87 70 - 100 mg/dL 11/07/2024 5:52 AM [facility] ([facility]) Calcium 8.3(L) 8.6 - 10.3 mg/dL 11/07/2024 5:52 AM [facility] ([facility]) Anion Gap 10 7 - 20 mmol/L 11/07/2024 5:52 AM [facility] ([facility]) eGFR 124.2 >60.0 mL/min/1. 73m*2 11/07/2024 5:52 AM [facility] ([facility]) Comment:[facility] s estimated glomerular filtration rate (eGFR) [...] individuals. BUN/Creatinine Ratio 26.9 10/17 5:52 AM [facility] ([facility]) Blood Venous blood specimen / Unknown Existing Catheter / Unknown 11/07/2024 4:50 AM EDT 11/07/2024 5:24 AM EDT us Rosa Willoughby PA-C LAB BLOOD ORDERABLES Final R esult [facility]) [address] [place] [address] * (ABNORMAL) POCT glucose meter (11/06/2024 10:59 PM EDT) Glucose POC 134(H) 70 - 105 mg/dL 11/06/2024 11:10 PM EDT [facility] ([facility]) Comment:[email or web address] Blood Capillary blood specimen / Unknown 11/06/2024 10:59 PM EDT 11/06/2024 11:10 PM EDT Narrative [facility] ([facility]) - 11/06/2024 11:10 PM EDT Waived Testing in the ED is performed under the ED CLIA certificate #[id number]. us Jose Angel Fox MD LAB BLOOD ORDERABLES Final Resu lt Performing Organization Address [facility]/ZIP Co de Phone Number [facility]) [address] [place] [address] * (ABNORMAL) POCT glucose meter (11/06/2024 8:22 PM EDT) Glucose POC 125(H) 70 - 105 mg/dL 11/06/2024 8:33 PM EDT [facility] ([facility]) Comment:[email or web address] Blood Capillary blood specimen / Unknown 11/06/2024 8:22 PM EDT 11/06/2024 8:33 PM EDT Narrative [facility] ([facility]) - 11/06/2024 8:33 PM EDT Waived Testing in the ED is performed under the ED CLIA certificate #[id number]. us Jose Angel Fox MD LAB BLOOD ORDERABLES Final Resu lt Performing Organization Address City/[facility]/ZIP Co de Phone Number [facility]) [address] [place] [address] * (ABNORMAL) POCT glucose meter (11/06/2024 5:05 PM EDT) Glucose POC 135(H) 70 - 105 mg/dL 11/06/2024 5:16 PM EDT [facility] ([facility]) Comment:[email or web address] Blood Capillary blood specimen / Unknown 11/06/2024 5:05 PM EDT 11/06/2024 5:16 PM EDT Narrative [facility] ([facility]) - 11/06/2024 5:16 PM EDT Waived Testing in the ED is performed under the ED CLIA certificate #[id number]. us Jose Angel Fox MD LAB BLOOD ORDERABLES Final Resu lt [facility] ([facility]) [address] [place] [address] * Calcium, ionized (11/06/2024 12:24 PM EDT) Calcium, Ion 1.15 1.15 - 1.33 mmol/L 11/06/2024 12:55 PM EDT [facility] RESPIRATORY THERAPY Blood Venous blood specimen / Unknown Existing Catheter / Unknown 11/06/2024 12:24 PM EDT 11/06/2024 12:52 PM EDT us Eduarda Bravo PA-C LAB BLOOD ORDERABLES Final Resu lt [facility] RESPIRATORY THERAPY [address] [place] [address], [place] * (ABNORMAL) POCT glucose meter (11/06/2024 12:19 PM EDT) Glucose POC 108(H) 70 - 105 mg/dL 11/06/2024 12:30 PM EDT [facility] ([facility]) Comment:[email or web address] Blood Capillary blood specimen / Unknown 11/06/2024 12:19 PM EDT 11/06/2024 12:30 PM EDT Narrative [facility] ([facility]) - 11/06/2024 12:30 PM EDT Waived Testing in the ED is performed under the ED CLIA certificate #[id number]. Jose Angel Fox MD LAB BLOOD ORDERABLES Final Resu lt [facility] ([facility]) [address] [place] [address] * Vasc Us Lower Extremity Pseudoaneurysm Duplex [...] POCT glucose meter (11/06/2024 7:52 AM EDT) Glucose POC 99 70 - 105 mg/dL 11/06/2024 8:03 AM EDT [facility]) Comment:[email or web address] Blood Capillary blood specimen / Unknown 11/06/2024 7:52 AM EDT 11/06/2024 8:03 AM EDT Narrative [facility] ([facility]) - 11/06/2024 8:03 AM EDT Waived Testing in the ED is performed under the ED CLIA certificate #[id number]. us Jose Angel Fox MD LAB BLOOD ORDERABLES Final Resu lt [facility] ([facility]) [address] [place] [address] * (ABNORMAL) CBC auto differential (11/06/2024 5:50 AM EDT) Auto WBC 3.50(L) 4.00 - 10.60 10*3/uL 11/06/2024 6:05 AM EDT [facility] ([facility]) RBC 2.99(L) 3.80 - 5.00 10*6/uL 11/06/2024 6:05 AM EDT [facility] ([facility]) Hemoglobin 8.8(L) 12.0 - 15.0 g/dL 11/06/2024 6:05 AM EDT [facility] ([facility]) Hematocrit 26.6(L) 36.0 - 45.0 % 11/06/2024 6:05 AM EDT [facility] ([facility]) MCV 89.0 82.0 - 98.0 fL 11/06/2024 6:05 AM EDT [facility] ([facility]) MCH 29.4 27.0 - 33.0 pg 11/06/2024 6:05 AM EDT [facility] ([facility]) MCHC 33.1 32.0 - 35.0 g/dL 11/06/2024 6:05 AM EDT [facility] ([facility]) RDW 13.9 11.5 - 15.0 % 11/06/2024 6:05 AM EDT [facility] ([facility]) Neutrophils % 42.5 40.0 - 72.0 % 11/06/2024 6:05 AM EDT [facility] ([facility]) Lymphocytes % 40.0 20.0 - 45.0 % 11/06/2024 6:05 AM EDT [facility] ([facility]) Monocytes % 10.0 5.0 - 12.0 % 11/06/2024 6:05 AM EDT [facility] ([facility]) Eosinophils % 6.3(H) 0.0 - 6.0 % 11/06/2024 6:05 AM EDT [facility] ([facility]) Basophils % 0.9 0.0 - 1.0 % 11/06/2024 6:05 AM EDT [facility] ([facility]) Neutrophils Absolute 1.49(L) 1.60 - 7.60 10*3/uL 11/06/2024 6:05 AM EDT [facility] ([facility]) Lymphocytes Absolute 1.40 1.20 - 4.00 10*3/uL 11/06/2024 6:05 AM EDT [facility] ([facility]) Monocytes Absolute 0.35 0.10 - 1.00 10*3/uL 11/06/2024 6:05 AM EDT [facility] ([facility]) Eosinophils Absolute 0.22 0.00 - 0.50 10*3/uL 11/06/2024 6:05 AM EDT [facility] ([facility]) Basophils Absolute 0.03 0.00 - 0.20 10*3/uL 11/06/2024 6:05 AM EDT [facility] ([facility]) Platelets 185 150 - 400 10*3/uL 11/06/2024 6:05 AM EDT [facility] ([facility]) nRBC % 0.0 0 % 11/06/2024 6:05 AM EDT [facility] ([facility]) Immature Granulocytes % 0.3 0.0 - 1.0 % 11/06/2024 6:05 AM EDT [facility] ([facility]) Immature Granulocytes Absolute 0.01 0.00 - 0.20 10*3/uL 11/06/2024 6:05 AM EDT [facility] ([facility]) Blood Venous blood specimen / Unknown Existing Catheter / Unknown 11/06/2024 5:50 AM EDT 11/06/2024 5:56 AM EDT us Jose Angel Fox MD LAB BLOOD ORDERABLES Final Resu lt [facility]) [address] [place] [address] * Phosphorus (11/06/2024 5:50 AM EDT) Phosphorus 4.7 2.5 - 5.0 mg/dL 11/06/2024 6:52 AM EDT [facility]) Blood Venous blood specimen / Unknown Existing Catheter / Unknown 11/06/2024 5:50 AM EDT 11/06/2024 5:56 AM EDT Rosa INMAN-C LAB BLOOD ORDERABLES Final R esult Performing Organization Address City/[facility]/ZIP Co de Phone Number [facility]) [address] [place] [address] * Magnesium (11/06/2024 5:50 AM EDT) Magnesium 1.9 1.9 - 2.7 mg/dL 11/06/2024 6:52 AM EDT [facility] ([facility]) Blood Venous blood specimen / Unknown Existing Catheter / Unknown 11/06/2024 5:50 AM EDT 11/06/2024 5:56 AM EDT Rosa INMAN-C LAB BLOOD ORDERABLES Final R esult Performing Organization Address City/[facility]/ZIP Co de Phone Number [facility]) [address] [place] [address] * (ABNORMAL) Basic metabolic panel (11/06/2024 5:50 AM EDT) Sodium 139 136 - 145 mmol/L 11/06/2024 6:52 AM EDT [facility] ([facility]) Potassium 3.9 3.5 - 5.1 mmol/L 11/06/2024 6:52 AM EDT [facility] ([facility]) Chloride 105 98 - 107 mmol/L 11/06/2024 6:52 AM EDT [facility] ([facility]) CO2 27 21 - 31 mmol/L 11/06/2024 6:52 AM EDT [facility] ([facility]) BUN 12 7 - 25 mg/dL 11/06/2024 6:52 AM EDT [facility] ([facility]) Creatinine 0.61 0.60 - 1.20 mg/dL 11/06/2024 6:52 AM EDT [facility] ([facility]) Glucose 85 70 - 100 mg/dL 11/06/2024 6:52 AM EDT [facility] ([facility]) Calcium 8.4(L) 8.6 - 10.3 mg/dL 11/06/2024 6:52 AM EDT [facility] ([facility]) Anion Gap 11 7 - 20 mmol/L 11/06/2024 6:52 AM EDT [facility] ([facility]) eGFR 119.5 >60.0 mL/min/1. 73m*2 11/06/2024 6:52 AM EDT [facility] ([facility]) Comment:[facility] s estimated glomerular filtration rate (eGFR) [...] BUN/Creatinine Ratio 19.7 10/17 6:52 AM EDT [facility] ([facility]) Blood Venous blood specimen / Unknown Existing Catheter / Unknown 11/06/2024 5:50 AM EDT 11/06/2024 5:56 AM EDT us Rosa Willoughby PA-C LAB BLOOD ORDERABLES Final R esult [facility] ([facility]) [address], [place] [id number] * (ABNORMAL) POCT glucose meter (11/05/2024 10:07 PM EDT) Glucose POC 118(H) 70 - 105 mg/dL 11/05/2024 10:24 PM EDT [facility] ([facility]) Comment:[email or web address] Blood Capillary blood specimen / Unknown 11/05/2024 10:07 PM EDT 11/05/2024 10:24 PM EDT [facility] ([facility]) - 11/05/2024 10:24 PM EDT Waived Testing in the ED is performed under the ED CLIA certificate #[id number]. us Jose Angel Fox MD LAB BLOOD ORDERABLES Final Resu lt Performing Organization Address [facility] Co de Phone Number [facility]) [address] [place] [address] * POCT glucose meter (11/05/2024 4:37 PM EDT) Glucose POC 96 70 - 105 mg/dL 11/05/2024 4:48 PM EDT [facility] ([facility]) Comment:[email or web address] Blood Capillary blood specimen / Unknown 11/05/2024 4:37 PM EDT 11/05/2024 4:48 PM EDT [facility] ([facility]) - 11/05/2024 4:48 PM EDT Waived Testing in the ED is performed under the ED CLIA certificate #[id number]. Jose Angel Fox MD LAB BLOOD ORDERABLES Final Resu lt Performing Organization Address [facility] Co de Phone Number [facility] ([facility]) [address] [place] [id number] * (ABNORMAL) POCT glucose meter (11/05/2024 11:36 AM EDT) Glucose POC 123(H) 70 - 105 mg/dL 11/05/2024 11:47 AM EDT [facility] ([facility]) Comment:[email or web address] Blood Capillary blood specimen / Unknown 11/05/2024 11:36 AM EDT 11/05/2024 11:47 AM EDT [facility] ([facility]) - 11/05/2024 11:47 AM EDT Waived Testing in the ED is performed under the ED CLIA certificate #[id number]. us Jose Angel Fox MD LAB BLOOD ORDERABLES Final Resu lt Performing Organization Address [facility]/ZIP Co de Phone Number [facility] ([facility]) [address], [place] [id number] * (ABNORMAL) Hemoglobin and hematocrit, blood (11/05/2024 9:01 AM EDT) Hemoglobin 9.4(L) 12.0 - 15.0 g/dL 11/05/2024 9:24 AM EDT [facility] ([facility]) Hematocrit 27.5(L) 36.0 - 45.0 % 11/05/2024 9:24 AM EDT [facility] ([facility]) Blood Venous blood specimen / Unknown Existing Catheter / Unknown 11/05/2024 9:01 AM EDT 11/05/2024 9:09 AM EDT Tomasa Disla MD LAB BLOOD ORDERABLES Fin al Result Performing Organization Address [facility]/ZIP Co de Phone Number [facility] ([facility]) [address] [place] [address] * (ABNORMAL) POCT glucose meter (11/05/2024 8:36 AM EDT) Glucose POC 120(H) 70 - 105 mg/dL 11/05/2024 8:46 AM EDT [facility] ([facility]) Comment:[email or web address] Blood Capillary blood specimen / Unknown 11/05/2024 8:36 AM EDT 11/05/2024 8:46 AM EDT Narrative [facility] ([facility]) - 11/05/2024 8:46 AM EDT Waived Testing in the ED is performed under the ED CLIA certificate #[id number]. Jose Angel Fox MD LAB BLOOD ORDERABLES Final Resu lt Performing Organization Address City/[facility]/ZIP Co de Phone Number [facility] ([facility]) [address], [place] [id number] * Phosphorus (11/05/2024 3:48 AM EDT) Phosphorus 4.0 2.5 - 5.0 mg/dL 11/05/2024 4:19 AM EDT [facility] ([facility]) Blood Venous blood specimen / Unknown Existing Catheter / Unknown 11/05/2024 3:48 AM EDT 11/05/2024 3:56 AM EDT Rosa Willoughby PA-C LAB BLOOD ORDERABLES Final R esult [facility]) [address] [place] [address] * Magnesium (11/05/2024 3:48 AM EDT) Pathologist [facility] Magnesium 1.9 1.9 - 2.7 mg/dL 11/05/2024 4:19 AM EDT [facility] ([facility]) Blood Venous blood specimen / Unknown Existing Catheter / Unknown 11/05/2024 3:48 AM EDT 11/05/2024 3:56 AM EDT Rosa Willoughby PA-C LAB BLOOD ORDERABLES Final R esult [facility]) [address] [place] [address] * (ABNORMAL) Basic metabolic panel (11/05/2024 3:48 AM EDT) Sodium 139 136 - 145 mmol/L 11/05/2024 4:19 AM EDT [facility] ([facility]) Potassium 3.6 3.5 - 5.1 mmol/L 11/05/2024 4:19 AM EDT [facility] ([facility]) Chloride 107 98 - 107 mmol/L 11/05/2024 4:19 AM EDT [facility] ([facility]) CO2 28 21 - 31 mmol/L 11/05/2024 4:19 AM EDT [facility] ([facility]) BUN 11 7 - 25 mg/dL 11/05/2024 4:19 AM EDT [facility] ([facility]) Creatinine 0.48(L) 0.60 - 1.20 mg/dL 11/05/2024 4:19 AM EDT [facility] ([facility]) Glucose 120(H) 70 - 100 mg/dL 11/05/2024 4:19 AM EDT [facility] ([facility]) Calcium 8.0(L) 8.6 - 10.3 mg/dL 11/05/2024 4:19 AM EDT [facility] ([facility]) Anion Gap 8 7 - 20 mmol/L 11/05/2024 4:19 AM EDT [facility] ([facility]) eGFR 126.6 >60.0 mL/min/1. 73m*2 11/05/2024 4:19 AM EDT [facility] ([facility]) Comment:[facility] s estimated glomerular filtration rate (eGFR) [...] BUN/Creatinine Ratio 22.9 10/17 4:19 AM EDT [facility] ([facility]) Blood Venous blood specimen / Unknown Existing Catheter / Unknown 11/05/2024 3:48 AM EDT 11/05/2024 3:56 AM EDT us Rosa Willoughby PA-C LAB BLOOD ORDERABLES Final R esult [facility] ([facility]) [address] [place], [place] [id number] * (ABNORMAL) CBC (11/05/2024 3:48 AM EDT) Auto WBC 3.54(L) 4.00 - 10.60 10*3/uL 11/05/2024 4:23 AM EDT [facility] ([facility]) RBC 2.91(L) 3.80 - 5.00 10*6/uL 11/05/2024 4:23 AM EDT [facility] ([facility]) Hemoglobin 8.6(L) 12.0 - 15.0 g/dL 11/05/2024 4:23 AM EDT [facility] ([facility]) Hematocrit 25.5(L) 36.0 - 45.0 % 11/05/2024 4:23 AM EDT [facility] ([facility]) MCV 87.6 82.0 - 98.0 fL 11/05/2024 4:23 AM EDT [facility] ([facility]) MCH 29.6 27.0 - 33.0 pg 11/05/2024 4:23 AM EDT [facility] ([facility]) MCHC 33.7 32.0 - 35.0 g/dL 11/05/2024 4:23 AM EDT [facility] ([facility]) RDW 14.1 11.5 - 15.0 % 11/05/2024 4:23 AM EDT [facility] ([facility]) Platelets 177 150 - 400 10*3/uL 11/05/2024 4:23 AM EDT [facility] ([facility]) Blood Venous blood specimen / Unknown Existing Catheter / Unknown 11/05/2024 3:48 AM EDT 11/05/2024 3:56 AM EDT us Rosa Willoughby PA-C LAB BLOOD ORDERABLES Final R esult [facility] ([facility]) [address] [place] [address] * Calcium, ionized (11/05/2024 1:00 AM EDT) Calcium, Ion 1.16 1.15 - 1.33 mmol/L 11/05/2024 4:02 AM EDT [facility] Blood Venous blood specimen / Unknown 11/05/2024 1:00 AM EDT 11/05/2024 3:55 AM EDT us Rosa Willoughby PA-C LAB BLOOD ORDERABLES Final R esult Performing Organization Address City/[facility]/ZIP Co de Phone Number [facility] [address] [place] [address], [place] * (ABNORMAL) Hemoglobin and hematocrit, blood (11/05/2024 12:54 AM EDT) Hemoglobin 8.5(L) 12.0 - 15.0 g/dL 11/05/2024 1:54 AM EDT [facility] ([facility]) Hematocrit 24.9(L) 36.0 - 45.0 % 11/05/2024 1:54 AM EDT [facility] ([facility]) Blood Venous blood specimen / Unknown Existing Catheter / Unknown 11/05/2024 12:54 AM EDT 11/05/2024 1:19 AM EDT us Tomasa Disla MD LAB BLOOD ORDERABLES Fin al Result Performing Organization Address [facility] Co de Phone Number [facility] ([facility]) [address] [place] [address] * POCT glucose meter (11/04/2024 10:33 PM EDT) Glucose POC 102 70 - 105 mg/dL 11/04/2024 10:44 PM EDT [facility] ([facility]) Comment:[email or web address] Blood Capillary blood specimen / Unknown 11/04/2024 10:33 PM EDT 11/04/2024 10:44 PM EDT Narrative [facility] ([facility]) - 11/04/2024 10:44 PM EDT Waived Testing in the ED is performed under the ED CLIA certificate #[id number]. us Jose Angel Fox MD LAB BLOOD ORDERABLES Final Resu lt Performing Organization Address City/[facility]/ZIP Co de Phone Number [facility] ([facility]) [address] [place] [address] * (ABNORMAL) Basic metabolic panel (11/04/2024 8:17 PM EDT) Sodium 137 136 - 145 mmol/L 11/04/2024 8:42 PM T [facility] ([facility]) Potassium 4.0 3.5 - 5.1 mmol/L 11/04/2024 8:42 PM EDT [facility] ([facility]) Chloride 106 98 - 107 mmol/L 11/04/2024 8:42 PM T [facility] ([facility]) CO2 27 21 - 31 mmol/L 11/04/2024 8:42 PM T [facility] ([facility]) BUN 14 7 - 25 mg/dL 11/04/2024 8:42 PM T [facility] ([facility]) Creatinine 0.48(L) 0.60 - 1.20 mg/dL 11/04/2024 8:42 PM T [facility] ([facility]) Glucose 82 70 - 100 mg/dL 11/04/2024 8:42 PM T [facility] ([facility]) Calcium 7.8(L) 8.6 - 10.3 mg/dL 11/04/2024 8:42 PM T [facility] ([facility]) Anion Gap 8 7 - 20 mmol/L 11/04/2024 8:42 PM [facility] ([facility]) eGFR 126.6 >60.0 mL/min/1. 73m*2 11/04/2024 8:42 PM T [facility] ([facility]) Comment:[facility] s estimated glomerular filtration rate (eGFR) [...] individuals. BUN/Creatinine Ratio 29.2 10/17 8:42 PM T [facility] ([facility]) Blood Venous blood specimen / Unknown Existing Catheter / Unknown 11/04/2024 8:17 PM EDT 11/04/2024 8:17 PM EDT us Audie Sylvester PA-C LAB BLOOD ORDERABLES F inal Result Performing Organization Address City/[facility]/ZIP Co de Phone Number [facility]) [address] [place] [address] * (ABNORMAL) Hemoglobin and hematocrit, blood (11/04/2024 8:13 PM EDT) Hemoglobin 9.0(L) 12.0 - 15.0 g/dL 11/04/2024 8:24 PM EDT [facility] ([facility]) Hematocrit 26.7(L) 36.0 - 45.0 % 11/04/2024 8:24 PM EDT [facility] ([facility]) Blood Venous blood specimen / Unknown Existing Catheter / Unknown 11/04/2024 8:13 PM EDT 11/04/2024 8:17 PM EDT Tomasa Disla MD LAB BLOOD ORDERABLES Fin al Result Performing Organization Address City/[facility]/ZIP Co de Phone Number [facility] ([facility]) [address] [place] [address] * (ABNORMAL) POCT glucose meter (11/04/2024 5:12 PM EDT) Glucose POC 147(H) 70 - 105 mg/dL 11/04/2024 5:23 PM EDT [facility] ([facility]) Comment:[email or web address] Blood Capillary blood specimen / Unknown 11/04/2024 5:12 PM EDT 11/04/2024 5:23 PM EDT Narrative [facility] ([facility]) - 11/04/2024 5:23 PM EDT Waived Testing in the ED is performed under the ED CLIA certificate #[id number]. us Jose Angel Fox MD LAB BLOOD ORDERABLES Final Resu lt [facility]) [place] [address] * Transfuse RBC (11/04/2024 4:57 PM EDT) us Tomasa Disla MD BLOOD TRANSFUSION ORDERA BLES Final Result * Transfuse RBC: 1 Units (11/04/2024 4:57 PM EDT) us Tomasa Disla MD BLOOD TRANSFUSION ORDERA BLES Final Result * ECG 12 lead (11/04/2024 1:59 PM EDT) Pathologist [facility] Ventricular Rate 100 BPM GE MUSE Atrial Rate 100 BPM GE MUSE VT Interval 132 ms GE MUSE QRS DURATION 94 ms GE MUSE QT Interval 382 ms GE MUSE QTC CALCULATION(BAZE TT) 492 ms GE MUSE P [place] 60 degrees GE MUSE R-[place] 34 degrees GE MUSE T Wave [place] 58 degrees GE MUSE 11/04/2024 1:40 PM [...] - 15.0 g/dL 11/04/2024 1:49 PM EDT [facility] ([facility]) Hematocrit 23.9(L) 36.0 - 45.0 % 11/04/2024 1:49 PM EDT [facility] ([facility]) Blood Venous blood specimen / Unknown Existing Catheter / Unknown 11/04/2024 1:38 PM EDT 11/04/2024 1:43 PM EDT us Tomasa Disla MD LAB BLOOD ORDERABLES Fin al Result [facility] ([facility]) [address] [place] [id number] * (ABNORMAL) Basic metabolic panel (11/04/2024 1:38 PM EDT) Sodium 135(L) 136 - 145 mmol/L 11/04/2024 2:09 PM EDT [facility] ([facility]) Potassium 4.2 3.5 - 5.1 mmol/L 11/04/2024 2:09 PM EDT [facility] ([facility]) Chloride 106 98 - 107 mmol/L 11/04/2024 2:09 PM EDT [facility] ([facility]) CO2 24 21 - 31 mmol/L 11/04/2024 2:09 PM EDT [facility] ([facility]) BUN 13 7 - 25 mg/dL 11/04/2024 2:09 PM EDT [facility] ([facility]) Creatinine 0.61 0.60 - 1.20 mg/dL 11/04/2024 2:09 PM EDT [facility] ([facility]) Glucose 191(H) 70 - 100 mg/dL 11/04/2024 2:09 PM EDT [facility] ([facility]) Calcium 7.6(L) 8.6 - 10.3 mg/dL 11/04/2024 2:09 PM EDT [facility] ([facility]) Anion Gap 9 7 - 20 mmol/L 11/04/2024 2:09 PM EDT [facility] ([facility]) eGFR 119.5 >60.0 mL/min/1. 73m*2 11/04/2024 2:09 PM EDT [facility] ([facility]) Comment:[facility] s estimated glomerular filtration rate (eGFR) [...] BUN/Creatinine Ratio 21.3 10/17 2:09 PM EDT [facility] ([facility]) Blood Venous blood specimen / Unknown Existing Catheter / Unknown 11/04/2024 1:38 PM EDT 11/04/2024 1:43 PM EDT Tomasa Disla MD LAB BLOOD ORDERABLES Fin al Result [facility]) [address] [place], [place] [id number] * (ABNORMAL) High Sensitivity Troponin I (11/04/2024 1:38 PM EDT) High Sensitivity Troponin I 36(H) <15 ng/L 11/04/2024 2:13 PM EDT [facility]) Blood Venous blood specimen / Unknown Existing Catheter / Unknown 11/04/2024 1:38 PM EDT 11/04/2024 1:43 PM EDT Tomasa Disla MD LAB BLOOD ORDERABLES Fin al Result [facility]) [address] [place], [place] [id number] * (ABNORMAL) POCT glucose meter (11/04/2024 1:06 PM EDT) Glucose POC 125(H) 70 - 105 mg/dL 11/04/2024 1:19 PM EDT [facility] ([facility]) Comment:[email or web address] Blood Capillary blood specimen / Unknown 11/04/2024 1:06 PM EDT 11/04/2024 1:19 PM EDT Narrative [facility] ([facility]) - 11/04/2024 1:19 PM EDT Waived Testing in the ED is performed under the ED CLIA certificate #[id number]. us Jose Angel Fox MD LAB BLOOD ORDERABLES Final Resu lt [facility] ([facility]) [address] [place] [address] * CTA Abdomen Pelvis W IV Contrast [...] - 105 mg/dL 11/04/2024 9:31 AM EDT [facility] ([facility]) Comment:[email or web address] Blood Capillary blood specimen / Unknown 11/04/2024 9:20 AM EDT 11/04/2024 9:31 AM EDT Narrative [facility] ([facility]) - 11/04/2024 9:31 AM EDT Waived Testing in the ED is performed under the ED CLIA certificate #[id number]. Jose Angel Fox MD LAB BLOOD ORDERABLES Final Resu lt [facility] ([facility]) [address] [place] [address] * (ABNORMAL) POCT glucose meter (11/04/2024 5:10 AM EDT) Glucose POC 146(H) 70 - 105 mg/dL 11/04/2024 5:21 AM EDT [facility] ([facility]) Comment:[email or web address] Blood Capillary blood specimen / Unknown 11/04/2024 5:10 AM EDT 11/04/2024 5:21 AM EDT Narrative [facility]) - 11/04/2024 5:21 AM EDT Waived Testing in the ED is performed under the ED CLIA certificate #[id number]. us Ky Ritter MD LAB BLOOD ORDERABLES Final Re sult [facility]) [address] [place] [address] * Phosphorus (11/04/2024 5:05 AM EDT) Phosphorus 3.3 2.5 - 5.0 mg/dL 11/04/2024 6:27 AM EDT [facility]) Blood Venous blood specimen / Unknown Existing Catheter / Unknown 11/04/2024 5:05 AM EDT 11/04/2024 5:08 AM EDT us Rosa Willoughby PA-C LAB BLOOD ORDERABLES Final R esult Performing Organization Address City/[facility]/ZIP Co de Phone Number [facility]) [address] [place] [address] * Magnesium (11/04/2024 5:05 AM EDT) Magnesium 1.9 1.9 - 2.7 mg/dL 11/04/2024 6:27 AM EDT [facility]) Blood Venous blood specimen / Unknown Existing Catheter / Unknown 11/04/2024 5:05 AM EDT 11/04/2024 5:08 AM EDT Rosa GONZALEZC LAB BLOOD ORDERABLES Final R esult [facility]) [address] [place] [address] * (ABNORMAL) Basic metabolic panel (11/04/2024 5:05 AM EDT) Sodium 140 136 - 145 mmol/L 11/04/2024 6:27 AM [facility] ([facility]) Potassium 3.6 3.5 - 5.1 mmol/L 11/04/2024 6:27 AM [facility] ([facility]) Chloride 108(H) 98 - 107 mmol/L 11/04/2024 6:27 AM [facility] ([facility]) CO2 28 21 - 31 mmol/L 11/04/2024 6:27 AM [facility] ([facility]) BUN 9 7 - 25 mg/dL 11/04/2024 6:27 AM [facility] ([facility]) Creatinine 0.45(L) 0.60 - 1.20 mg/dL 11/04/2024 6:27 AM [facility] ([facility]) Glucose 128(H) 70 - 100 mg/dL 11/04/2024 6:27 AM [facility] ([facility]) Calcium 7.6(L) 8.6 - 10.3 mg/dL 11/04/2024 6:27 AM [facility] ([facility]) Anion Gap 8 7 - 20 mmol/L 11/04/2024 6:27 AM [facility] ([facility]) eGFR 128.6 >60.0 mL/min/1. 73m*2 11/04/2024 6:27 AM [facility] ([facility]) Comment:[facility] estimated glomerular filtration rate (eGFR) [...] individuals. BUN/Creatinine Ratio 20.0 10/17 6:27 AM [facility] ([facility]) Blood Venous blood specimen / Unknown Existing Catheter / Unknown 11/04/2024 5:05 AM EDT 11/04/2024 5:08 AM EDT us Rosa Willoughby PA-C LAB BLOOD ORDERABLES Final R esult [facility] ([facility]) [address] [place] [address] * (ABNORMAL) CBC (11/04/2024 5:05 AM EDT) Auto WBC 3.79(L) 4.00 - 10.60 10*3/uL 11/04/2024 5:17 AM EDT [facility] ([facility]) RBC 2.66(L) 3.80 - 5.00 10*6/uL 11/04/2024 5:17 AM EDT [facility] ([facility]) Hemoglobin 8.0(L) 12.0 - 15.0 g/dL 11/04/2024 5:17 AM EDT [facility] ([facility]) Hematocrit 23.7(L) 36.0 - 45.0 % 11/04/2024 5:17 AM EDT [facility] ([facility]) MCV 89.1 82.0 - 98.0 fL 11/04/2024 5:17 AM EDT [facility] ([facility]) MCH 30.1 27.0 - 33.0 pg 11/04/2024 5:17 AM EDT [facility] ([facility]) MCHC 33.8 32.0 - 35.0 g/dL 11/04/2024 5:17 AM EDT [facility] ([facility]) RDW 13.9 11.5 - 15.0 % 11/04/2024 5:17 AM EDT [facility] ([facility]) Platelets 185 150 - 400 10*3/uL 11/04/2024 5:17 AM EDT [facility] ([facility]) Blood Venous blood specimen / Unknown Existing Catheter / Unknown 11/04/2024 5:05 AM EDT 11/04/2024 5:08 AM EDT us Rosa Willoughby PA-C LAB BLOOD ORDERABLES Final R esult [facility] ([facility]) [address] [place] [address] * (ABNORMAL) Calcium, ionized (11/04/2024 5:05 AM EDT) Calcium, Ion 1.12(L) 1.15 - 1.33 mmol/L 11/04/2024 5:15 AM EDT [facility] RESPIRATORY THERAPY Blood Venous blood specimen / Unknown Existing Catheter / Unknown 11/04/2024 5:05 AM EDT 11/04/2024 5:12 AM EDT Rosa Willoughby PA-C LAB BLOOD ORDERABLES Final R esult Performing Organization Address [facility]/ZIP Co de Phone Number [facility] RESPIRATORY THERAPY [address] [place] [address], [place] * (ABNORMAL) POCT glucose meter (11/04/2024 12:12 AM EDT) Glucose POC 190(H) 70 - 105 mg/dL 11/04/2024 12:23 AM EDT [facility] ([facility]) Comment:[email or web address] Blood Capillary blood specimen / Unknown 11/04/2024 12:12 AM EDT 11/04/2024 12:23 AM EDT Narrative [facility] ([facility]) - 11/04/2024 12:23 AM EDT Waived Testing in the ED is performed under the ED CLIA certificate #[id number]. Ky Ritter MD LAB BLOOD ORDERABLES Final Re sult Performing Organization Address City/[facility]/ZIP Co de Phone Number [facility] ([facility]) [address] [place] [address] * (ABNORMAL) Hemoglobin and hematocrit, blood (11/04/2024 12:09 AM EDT) Hemoglobin 8.0(L) 12.0 - 15.0 g/dL 11/04/2024 12:56 AM EDT [facility] ([facility]) Hematocrit 23.5(L) 36.0 - 45.0 % 11/04/2024 12:56 AM EDT [facility] ([facility]) Blood Venous blood specimen / Unknown Existing Catheter / Unknown 11/04/2024 12:09 AM EDT 11/04/2024 12:13 AM EDT Sid Cruz PA-C LAB BLOOD ORDERABLES Final Result [facility] ([facility]) [address] [place] [address] * (ABNORMAL) POCT glucose meter (11/03/2024 9:52 PM EDT) Glucose POC 130(H) 70 - 105 mg/dL 11/03/2024 10:03 PM EDT [facility] ([facility]) Comment:[email or web address] Blood Capillary blood specimen / Unknown 11/03/2024 9:52 PM EDT 11/03/2024 10:03 PM EDT Narrative [facility] ([facility]) - 11/03/2024 10:03 PM EDT Waived Testing in the ED is performed under the ED CLIA certificate #[id number]. Ky Ritter MD LAB BLOOD ORDERABLES Final Re sult [facility] ([facility]) [address] [place], [place] [id number] * (ABNORMAL) Hemoglobin and hematocrit, blood (11/03/2024 6:34 PM EDT) Hemoglobin 8.3(L) 12.0 - 15.0 g/dL 11/03/2024 6:48 PM EDT [facility] ([facility]) Hematocrit 24.9(L) 36.0 - 45.0 % 11/03/2024 6:48 PM EDT [facility] ([facility]) Blood Venous blood specimen / Unknown Existing Catheter / Unknown 11/03/2024 6:34 PM EDT 11/03/2024 6:40 PM EDT Sid INMAN-Elroy LAB BLOOD ORDERABLES Final Result Performing Organization Address City/[facility]/ZIP Co de Phone Number [facility]) [address] [place] [address] * POCT glucose meter (11/03/2024 5:35 PM EDT) Glucose POC 101 70 - 105 mg/dL 11/03/2024 5:45 PM EDT [facility]) Comment:[email or web address] Blood Capillary blood specimen / Unknown 11/03/2024 5:35 PM EDT 11/03/2024 5:45 PM EDT Narrative [facility]) - 11/03/2024 5:45 PM EDT Waived Testing in the ED is performed under the ED CLIA certificate #[id number]. Ky Ritter MD LAB BLOOD ORDERABLES Final Re sult Performing Organization Address City/[facility]/ZIP Co de Phone Number [facility] ([facility]) [address] [place] [address] * (ABNORMAL) CBC (11/03/2024 1:23 PM EDT) Auto WBC 7.60 4.00 - 10.60 10*3/uL 11/03/2024 1:54 PM EDT [facility]) RBC 3.01(L) 3.80 - 5.00 10*6/uL 11/03/2024 1:54 PM EDT [facility] ([facility]) Hemoglobin 9.0(L) 12.0 - 15.0 g/dL 11/03/2024 1:54 PM EDT [facility] ([facility]) Hematocrit 26.7(L) 36.0 - 45.0 % 11/03/2024 1:54 PM EDT [facility] ([facility]) MCV 88.7 82.0 - 98.0 fL 11/03/2024 1:54 PM EDT [facility] ([facility]) MCH 29.9 27.0 - 33.0 pg 11/03/2024 1:54 PM EDT [facility] ([facility]) MCHC 33.7 32.0 - 35.0 g/dL 11/03/2024 1:54 PM EDT [facility] ([facility]) RDW 13.9 11.5 - 15.0 % 11/03/2024 1:54 PM EDT [facility] ([facility]) Platelets 253 150 - 400 10*3/uL 11/03/2024 1:54 PM EDT [facility] ([facility]) Blood Venous blood specimen / Unknown Existing Catheter / Unknown 11/03/2024 1:23 PM EDT 11/03/2024 1:34 PM EDT us Mikayla Jennings PA-C LAB BLOOD ORDERABLES Final Re sult [facility] ([facility]) [address] [place] [address] * (ABNORMAL) POCT glucose meter (11/03/2024 11:35 AM EDT) [facility] Glucose POC 145(H) 70 - 105 mg/dL 11/03/2024 11:47 AM EDT [facility] ([facility]) Comment:[email or web address] Blood Capillary blood specimen / Unknown 11/03/2024 11:35 AM EDT 11/03/2024 11:47 AM EDT Narrative [facility] ([facility]) - 11/03/2024 11:47 AM EDT Waived Testing in the ED is performed under the ED CLIA certificate #[id number]. us Ky Ritter MD LAB BLOOD ORDERABLES Final Re sult [facility]) [address] [place] [address] * (ABNORMAL) POCT glucose meter (11/03/2024 7:46 AM EDT) Glucose POC 135(H) 70 - 105 mg/dL 11/03/2024 8:09 AM EDT [facility] ([facility]) Comment:[email or web address] Blood Capillary blood specimen / Unknown 11/03/2024 7:46 AM EDT 11/03/2024 8:09 AM EDT Narrative [facility] ([facility]) - 11/03/2024 8:09 AM EDT Waived Testing in the ED is performed under the ED CLIA certificate #[id number]. us Ky Ritter MD LAB BLOOD ORDERABLES Final Re sult Performing Organization Address City/[facility]/ZIP Co de Phone Number [facility] ([facility]) [address] [place] [address] * Phosphorus (11/03/2024 4:46 AM EDT) Phosphorus 3.7 2.5 - 5.0 mg/dL 11/03/2024 5:30 AM EDT [facility] ([facility]) Blood Venous blood specimen / Unknown Existing Catheter / Unknown 11/03/2024 4:46 AM EDT 11/03/2024 4:58 AM EDT us Rosa Willoughby PA-C LAB BLOOD ORDERABLES Final R esult [facility]) [address] [place], [place] [id number] * Magnesium (11/03/2024 4:46 AM EDT) Magnesium 2.2 1.9 - 2.7 mg/dL 11/03/2024 5:30 AM EDT [facility] ([facility]) Blood Venous blood specimen / Unknown Existing Catheter / Unknown 11/03/2024 4:46 AM EDT 11/03/2024 4:58 AM EDT us Rosa Willoughby PA-C LAB BLOOD ORDERABLES Final R esult [facility] ([facility]) [address] [place], [place] [id number] * (ABNORMAL) Basic metabolic panel (11/03/2024 4:46 AM EDT) Sodium 136 136 - 145 mmol/L 11/03/2024 5:30 AM EDT [facility] ([facility]) Potassium 4.4 3.5 - 5.1 mmol/L 11/03/2024 5:30 AM EDT [facility] ([facility]) Chloride 108(H) 98 - 107 mmol/L 11/03/2024 5:30 AM EDT [facility] ([facility]) CO2 22 21 - 31 mmol/L 11/03/2024 5:30 AM EDT [facility] ([facility]) BUN 6(L) 7 - 25 mg/dL 11/03/2024 5:30 AM EDT [facility] ([facility]) Creatinine 0.52(L) 0.60 - 1.20 mg/dL 11/03/2024 5:30 AM EDT [facility] ([facility]) Glucose 170(H) 70 - 100 mg/dL 11/03/2024 5:30 AM EDT [facility] ([facility]) Calcium 7.9(L) 8.6 - 10.3 mg/dL 11/03/2024 5:30 AM EDT [facility] ([facility]) Anion Gap 10 7 - 20 mmol/L 11/03/2024 5:30 AM EDT [facility] ([facility]) eGFR 124.2 >60.0 mL/min/1. 73m*2 11/03/2024 5:30 AM EDT [facility] ([facility]) Comment:[facility] s estimated glomerular filtration rate (eGFR) [...] BUN/Creatinine Ratio 11.5 10/16 5:30 AM EDT [facility] ([facility]) Blood Venous blood specimen / Unknown Existing Catheter / Unknown 11/03/2024 4:46 AM EDT 11/03/2024 4:58 AM EDT us Rosa Willoughby PA-C LAB BLOOD ORDERABLES Final R esult [facility]) [address] [place] [address] * (ABNORMAL) CBC (11/03/2024 4:46 AM EDT) Auto WBC 6.23 4.00 - 10.60 10*3/uL 11/03/2024 5:09 AM EDT [facility] ([facility]) RBC 3.23(L) 3.80 - 5.00 10*6/uL 11/03/2024 5:09 AM EDT [facility] ([facility]) Hemoglobin 9.5(L) 12.0 - 15.0 g/dL 11/03/2024 5:09 AM EDT [facility] ([facility]) Hematocrit 28.7(L) 36.0 - 45.0 % 11/03/2024 5:09 AM EDT [facility] ([facility]) MCV 88.9 82.0 - 98.0 fL 11/03/2024 5:09 AM EDT [facility] ([facility]) MCH 29.4 27.0 - 33.0 pg 11/03/2024 5:09 AM EDT [facility] ([facility]) MCHC 33.1 32.0 - 35.0 g/dL 11/03/2024 5:09 AM EDT [facility] ([facility]) RDW 13.6 11.5 - 15.0 % 11/03/2024 5:09 AM EDT [facility] ([facility]) Platelets 248 150 - 400 10*3/uL 11/03/2024 5:09 AM EDT [facility] ([facility]) Blood Venous blood specimen / Unknown Existing Catheter / Unknown 11/03/2024 4:46 AM EDT 11/03/2024 4:58 AM EDT us Rosa INMAN-C LAB BLOOD ORDERABLES Final R esult [facility] ([facility]) [address] [place] [address] * Calcium, ionized (11/03/2024 4:46 AM EDT) Calcium, Ion 1.16 1.15 - 1.33 mmol/L 11/03/2024 5:32 AM EDT [facility] RESPIRAT[facility] THERAPY Blood Venous blood specimen / Unknown Existing Catheter / Unknown 11/03/2024 4:46 AM EDT 11/03/2024 5:20 AM EDT us Rosa GONZALEZC LAB BLOOD ORDERABLES Final R esult Performing Organization Address City/[facility] Co de Phone Number [facility] RESPIRATORY THERAPY [address] [place] [address], [place] * (ABNORMAL) INTEM C (11/03/2024 1:58 AM EDT) INTEM C CLOTTING TIME 169 139 - 205 s 11/03/2024 1:58 AM EDT [facility] RESPIRATORY THERAPY INTEM C AMPLITUDE 5 MIN 48 36 - 54 mm 11/03/2024 1:58 AM EDT [facility] RESPIRATORY THERAPY INTEM C AMPLITUDE 10 MIN 57 46 - 63 mm 11/03/2024 1:58 AM EDT [facility] RESPIRATORY THERAPY INTEM C AMPLITUDE 20 MIN 63 53 - 68 mm 11/03/2024 1:58 AM EDT [facility] RESPIRATORY THERAPY INTEM C MAXIMUM CLOT FIRMNESS 63 55 - 70 mm 11/03/2024 1:58 AM EDT [facility] RESPIRATORY THER[facility]Y INTEM C LYSIS INDEX 60 MIN 95 93 - 100 % 11/03/2024 1:58 AM EDT [facility] RESPIRATORY THERAPY INTEM C MAXIMUM LYSIS 12(H) 0 - 7 % 11/03/2024 1:58 AM EDT [facility]IR[facility]ER[facility] Comment:VT^Preliminary Resul t Blood 11/03/2024 1:58 AM EDT 11/03/2024 1:58 AM EDT us Ky Ritter MD LAB BLOOD ORDERABLES Final Re sult Performing Organization Address City/[facility]/ZIP Co de Phone Number [facility] RESPIRATORY THERAPY [address] [place] [address], [place] * HEPTEM C (11/03/2024 1:58 AM EDT) HEPTEM C CLOTTING TIME 168 141 - 215 s 11/03/2024 1:58 AM EDT [facility] RESPIRATORY THERAPY HEPTEM C AMPLITUDE 5 MIN 46 33 - 51 mm 11/03/2024 1:58 AM EDT [facility] RESPIRATORY THERAPY HEPTEM C AMPLITUDE 10 MIN 56 44 - 61 mm 11/03/2024 1:58 AM EDT [facility] RESPIRATORY THERAPY HEPTEM C AMPLITUDE 20 MIN 62 52 - 67 mm 11/03/2024 1:58 AM EDT [facility] RESPIRATORY THERAPY HEPTEM C MAXIMUM CLOT FIRMNESS 63 54 - 69 mm 11/03/2024 1:58 AM EDT [facility] RESPIRATORY [facility] Blood 11/03/2024 1:58 AM EDT 11/03/2024 1:58 AM EDT us Ky Ritter MD LAB BLOOD ORDERABLES Final Re sult Performing Organization Address City/[facility]/ZIP Co de Phone Number [facility] RESPIRATORY THERAPY [address] [place] [address], [place] * (ABNORMAL) EXTEM C (11/03/2024 1:58 AM EDT) EXTEM C CLOTTING TIME 51 51 - 73 s 11/03/2024 1:58 AM EDT [facility] RESPIRATORY THERAPY EXTEM C AMPLITUDE 5 MIN 52 33 - 52 mm 11/03/2024 1:58 AM EDT [facility] RESPIRATORY THERAPY EXTEM C AMPLITUDE 10 MIN 61 45 - 62 mm 11/03/2024 1:58 AM EDT [facility] RESPIRATORY THERAPY EXTEM C AMPLITUDE 20 MIN 67 54 - 69 mm 11/03/2024 1:58 AM EDT [facility] RESPIRATORY THERAPY EXTEM C MAXIMUM CLOT FIRMNESS 68 57 - 72 mm 11/03/2024 1:58 AM EDT [facility] RESPIRATORY THERAPY EXTEM C LYSIS INDEX 60 MIN 96 94 - 100 % 11/03/2024 1:58 AM EDT [facility] RESPIRATORY THERAPY EXTEM C MAXIMUM LYSIS 10(H) 0 - 6 % 11/03/2024 1:58 AM EDT [facility] RESPIRATORY THERAPY Comment:VT^Preliminary Resul t Blood 11/03/2024 1:58 AM EDT 11/03/2024 1:58 AM EDT us Ky Ritter MD LAB BLOOD ORDERABLES Final Re sult Performing Organization Address [facility] Co de Phone Number [facility] RESPIRATORY THERAPY [address] [place] [address], [place] * FIBTEM C (11/03/2024 1:58 AM EDT) FIBTEM C AMPLITUDE 5 MIN 12 5 - 16 mm 11/03/2024 1:58 AM EDT [facility] RESPIRATORY THERAPY FIBTEM C AMPLITUDE 10 MIN 13 6 - 17 mm 11/03/2024 1:58 AM EDT [facility] RESPIRATORY THERAPY FIBTEM C AMPLITUDE 20 MIN 14 6 - 18 mm 11/03/2024 1:58 AM EDT [facility] RESPIRATORY THERAPY FIBTEM C MAXIMUM CLOT FIRMNESS 15 6 - 19 mm 11/03/2024 1:58 AM EDT [facility] RESPIRATORY THERAPY Blood 11/03/2024 1:58 AM EDT 11/03/2024 1:58 AM EDT us Ky Ritter MD LAB BLOOD ORDERABLES Final Re sult Performing Organization Address [facility] Co de Phone Number [facility] RESPIRATORY THERAPY [address] [place] [address], [place] * (ABNORMAL) CBC (11/03/2024 12:07 AM EDT) Auto WBC 7.71 4.00 - 10.60 10*3/uL 11/03/2024 12:41 AM EDT [facility] ([facility]) RBC 3.26(L) 3.80 - 5.00 10*6/uL 11/03/2024 12:41 AM EDT [facility] ([facility]) Hemoglobin 9.7(L) 12.0 - 15.0 g/dL 11/03/2024 12:41 AM EDT [facility] ([facility]) Hematocrit 29.0(L) 36.0 - 45.0 % 11/03/2024 12:41 AM EDT [facility] ([facility]) MCV 89.0 82.0 - 98.0 fL 11/03/2024 12:41 AM EDT [facility] ([facility]) MCH 29.8 27.0 - 33.0 pg 11/03/2024 12:41 AM EDT [facility] ([facility]) MCHC 33.4 32.0 - 35.0 g/dL 11/03/2024 12:41 AM EDT [facility] ([facility]) RDW 13.3 11.5 - 15.0 % 11/03/2024 12:41 AM EDT [facility] ([facility]) Platelets 216 150 - 400 10*3/uL 11/03/2024 12:41 AM EDT [facility] ([facility]) Blood Venous blood specimen / Unknown Existing Catheter / Unknown 11/03/2024 12:07 AM EDT 11/03/2024 12:33 AM EDT us Rosa Willoughby PA-C LAB BLOOD ORDERABLES Final R esult [facility] ([facility]) [address] [place] [address] * Phosphorus (11/03/2024 12:07 AM EDT) Phosphorus 2.7 2.5 - 5.0 mg/dL 11/03/2024 12:57 AM EDT [facility] ([facility]) Blood Venous blood specimen / Unknown Existing Catheter / Unknown 11/03/2024 12:07 AM EDT 11/03/2024 12:33 AM EDT us Rosa Willoughby PA-C LAB BLOOD ORDERABLES Final R esult [facility] ([facility]) [address] [place] [address] * (ABNORMAL) Magnesium (11/03/2024 12:07 AM EDT) Magnesium 1.5(L) 1.9 - 2.7 mg/dL 11/03/2024 12:57 AM EDT [facility] ([facility]) Blood Venous blood specimen / Unknown Existing Catheter / Unknown 11/03/2024 12:07 AM EDT 11/03/2024 12:33 AM EDT us Rosa Willoughby PA-C LAB BLOOD ORDERABLES Final R esult [facility] ([facility]) [address] [place] [address] * (ABNORMAL) Basic metabolic panel (11/03/2024 12:07 AM EDT) Sodium 135(L) 136 - 145 mmol/L 11/03/2024 12:57 AM EDT [facility] ([facility]) Potassium 4.9 3.5 - 5.1 mmol/L 11/03/2024 12:57 AM EDT [facility] ([facility]) Chloride 110(H) 98 - 107 mmol/L 11/03/2024 12:57 AM EDT [facility] ([facility]) CO2 20(L) 21 - 31 mmol/L 11/03/2024 12:57 AM EDT [facility] ([facility]) BUN 8 7 - 25 mg/dL 11/03/2024 12:57 AM EDT [facility] ([facility]) Creatinine 0.53(L) 0.60 - 1.20 mg/dL 11/03/2024 12:57 AM EDT [facility] ([facility]) Glucose 168(H) 70 - 100 mg/dL 11/03/2024 12:57 AM EDT [facility] ([facility]) Calcium 7.6(L) 8.6 - 10.3 mg/dL 11/03/2024 12:57 AM EDT [facility] ([facility]) Anion Gap 10 7 - 20 mmol/L 11/03/2024 12:57 AM EDT [facility] ([facility]) eGFR 123.6 >60.0 mL/min/1. 73m*2 11/03/2024 12:57 AM EDT [facility] ([facility]) Comment:[facility] s estimated glomerular filtration rate (eGFR) [...] BUN/Creatinine Ratio 15.1 10/16 12:57 AM EDT [facility] ([facility]) Blood Venous blood specimen / Unknown Existing Catheter / Unknown 11/03/2024 12:07 AM EDT 11/03/2024 12:33 AM EDT us Rosa Willoughby PA-C LAB BLOOD ORDERABLES Final R esult [facility]) [address] [place] [address] * Fibrinogen (11/03/2024 12:07 AM EDT) Fibrinogen 328 150 - 425 mg/dL 11/03/2024 12:53 AM EDT [facility] ([facility]) Blood Venous blood specimen / Unknown Existing Catheter / Unknown 11/03/2024 12:07 AM EDT 11/03/2024 12:27 AM EDT Jose Angel Fox MD LAB BLOOD ORDERABLES Final Resu lt [facility]) [address] [place] [address] * (ABNORMAL) Protime-INR (11/03/2024 12:07 AM EDT) Protime 14.9(H) 12.3 - 14.8 Seconds 11/03/2024 12:53 AM EDT [facility]) INR 1.17(H) 0.90 - 1.10 11/03/2024 12:53 AM EDT [facility]) Comment: [facility] RECOMMENDED INR FOR WARFARIN THERAPY [...] Final Resu lt Performing Organization Address [facility]/ZIP Co de Phone Number [facility]) [address], [place] [id number] * (ABNORMAL) POCT glucose meter (11/02/2024 10:48 PM EDT) Glucose POC 151(H) 70 - 105 mg/dL 11/02/2024 10:59 PM EDT [facility] ([facility]) Comment:[email or web address] Blood Capillary blood specimen / Unknown 11/02/2024 10:48 PM EDT 11/02/2024 10:59 PM EDT Narrative [facility] ([facility]) - 11/02/2024 10:59 PM EDT Waived Testing in the ED is performed under the ED CLIA certificate #[id number]. us Ky Ritter MD LAB BLOOD ORDERABLES Final Re sult Performing Organization Address [facility]/ZIP Co de Phone Number [facility]) [address] [place] [address] * Transfuse RBC (11/02/2024 9:35 PM EDT) Tarik Mayers CAA BLOOD TRANSFUSION ORDERABLES Fi nal Result * Transfuse RBC (11/02/2024 9:32 PM EDT) Tarik Mayers CAA BLOOD TRANSFUSION ORDERABLES Fi nal Result * (ABNORMAL) POCT glucose meter (11/02/2024 8:30 PM EDT) Glucose POC 160(H) 70 - 105 mg/dL 11/02/2024 8:41 PM EDT [facility] ([facility]) Comment:[email or web address] Blood Capillary blood specimen / Unknown 11/02/2024 8:30 PM EDT 11/02/2024 8:41 PM EDT Narrative [facility] ([facility]) - 11/02/2024 8:41 PM EDT Waived Testing in the ED is performed under the ED CLIA certificate #[id number]. Ky Ritter MD LAB BLOOD ORDERABLES Final Re sult [facility] ([facility]) [place] [address] * Prepare RBC: 1 Units (11/02/2024 8:05 PM EDT) PRODUCT CODE [id number] [facility] Unit Number [id number] [facility] Unit ABO O [facility] Unit Rh POS [facility] Crossmatch Interpretation COMP [facility] Dispense Status TR [facility] Blood Expiration Date [facility] Product Blood Type 5100 [facility] Unit Volume 300 ML [facility] BLO OD B[facility] Other 11/02/2024 8:05 PM EDT Tomasa Disla MD BLOOD BANK PRODUCT ORDER JIN Final Result [facility] * Prepare RBC: 2 Units (11/02/2024 8:05 PM EDT) PRODUCT CODE [id number] [facility] Unit Number [id number] [facility] Unit ABO O [facility] Unit Rh POS [facility] Crossmatch Interpretation COMP [facility] Dispense Status TR [facility] Blood [facility]piration Date [facility] Product Blood Type 5100 [facility] Unit Volume 300 ML [facility] OD [facility] PRODUCT CODE [id number] [facility] Unit [facility] [id number] [facility] BLOOD [facility] Unit ABO O [facility] Unit Rh POS [facility] Crossmatch Interpretation COMP [facility] Dispense Status TR [facility] Blood [facility]piration Date [facility] Product Blood Type 5100 [facility] CLINIC BLOOD BANK Other 11/02/2024 8:05 PM EDT us Wali Collins MD BLOOD BANK PRODUCT ORDERAB LES Final Result [facility] BLOOD BANK * Type and screen (11/02/2024 8:02 PM EDT) ABO Grouping O 11/02/2024 8:42 PM EDT [facility] BLOOD BANK Rh Type POS 11/02/2024 8:42 PM EDT [facility] BLOOD BANK Ab Scrn NEG 11/02/2024 8:42 PM EDT [facility] BLOOD BANK Blood Venous blood specimen / Unknown Existing Catheter / Unknown 11/02/2024 8:02 PM EDT 11/02/2024 8:02 PM EDT Wali Collins MD LAB BLOOD BANK TEST ORDERA BLES Final Result [facility] BLOOD BANK * (ABNORMAL) CBC (11/02/2024 8:02 PM EDT) Pathologist [facility] Auto WBC 9.01 4.00 - 10.60 10*3/uL 11/02/2024 8:13 PM EDT [facility] ([facility]) RBC 3.18(L) 3.80 - 5.00 10*6/uL 11/02/2024 8:13 PM EDT [facility] ([facility]) Hemoglobin 9.4(L) 12.0 - 15.0 g/dL 11/02/2024 8:13 PM EDT [facility] ([facility]) Hematocrit 28.9(L) 36.0 - 45.0 % 11/02/2024 8:13 PM EDT [facility] ([facility]) MCV 90.9 82.0 - 98.0 fL 11/02/2024 8:13 PM EDT [facility] ([facility]) MCH 29.6 27.0 - 33.0 pg 11/02/2024 8:13 PM EDT [facility] ([facility]) MCHC 32.5 32.0 - 35.0 g/dL 11/02/2024 8:13 PM EDT [facility] ([facility]) RDW 13.2 11.5 - 15.0 % 11/02/2024 8:13 PM EDT [facility] ([facility]) Platelets 358 150 - 400 10*3/uL 11/02/2024 8:13 PM EDT [facility] ([facility]) Blood Venous blood specimen / Unknown Existing Catheter / Unknown 11/02/2024 8:02 PM EDT 11/02/2024 8:02 PM EDT us Wali Collins MD LAB BLOOD ORDERABLES Final Result [facility] ([facility]) [address] [place] [address] * Red Top (11/02/2024 8:00 PM EDT) Extra Tube Hold for add-ons. 11/02/2024 10:02 PM EDT [facility] ([facility]) Comment:Auto resulted. Blood Venous blood specimen / Unknown 11/02/2024 8:00 PM EDT 11/02/2024 8:19 PM EDT us Ky Ritter MD LAB BLOOD ORDERABLES Final Re sult Performing Organization Address [facility] Co de Phone Number [facility] ([facility]) [address] [place] [address] * (ABNORMAL) Activated clotting time (11/02/2024 4:43 PM EDT) Activated Clotting Time 176(H) 82 - 152 s 11/02/2024 5:54 PM EDT [facility] ([facility]) Blood Venous blood specimen / Unknown 11/02/2024 4:43 PM EDT 11/02/2024 5:54 PM EDT us Ky Ritter MD LAB POINT OF CARE TE ST DOCKED DEVICE UNSOLICITED RESULTS Final Result Performing Organization Address City/[facility]/ZIP Co de Phone Number [facility] ([facility]) [address] [place] [address] * (ABNORMAL) POCT activated clotting time manually [...] - 152 s 11/02/2024 5:54 PM EDT [facility] ([facility]) Blood Venous blood specimen / Unknown 11/02/2024 4:13 PM EDT 11/02/2024 5:54 PM EDT us Ky Ritter MD LAB POINT OF CARE TE ST DOCKED DEVICE UNSOLICITED RESULTS Final Result [facility] ([facility]) [address] [place] [address] * (ABNORMAL) Activated clotting time (11/02/2024 2:56 PM EDT) Activated Clotting Time 227(H) 82 - 152 s 11/02/2024 3:02 PM EDT [facility] ([facility]) Blood Venous blood specimen / Unknown 11/02/2024 2:56 PM EDT 11/02/2024 3:02 PM EDT us Ky Ritter MD LAB POINT OF CARE TE ST DOCKED DEVICE UNSOLICITED RESULTS Final Result [facility] ([facility]) [address] [place] [address] * CORONARY ANGIOGRAPHY, ULTRASOUND - CORONARY, INSTANT [...] infiltrated over the right femoral artery. A 6-Montenegrin sheath was placed in right femoral artery. Coronary angiography was performed with a JL4 and then repeated after IC nitroglycerin 50 mcg x 2. At this time, it was apparent that the LAD had a moderate stenosis and IVUS and iFR were performed. Heparin anticoagulation was used for this procedure. ACT was maintained at >250 seconds. A 6 Montenegrin xb3 was engaged to the [place]. I then advanced a 0.014 guidewire to the distal left anterior descending. IVUS imaging was performed with a WebActioninity catheter after additional IC nitroglycerin and IV [...] Activated clotting time (11/02/2024 2:24 PM EDT) [facility] Activated Clotting Time 339(H) 82 - 152 s 11/02/2024 2:28 PM EDT [facility] ([facility]) Blood Venous blood specimen / Unknown 11/02/2024 2:24 PM EDT 11/02/2024 2:28 PM EDT Ky Ritter MD LAB POINT OF CARE TE ST DOCKED DEVICE UNSOLICITED RESULTS Final Result [facility] ([facility]) [address] [place] [address] * ECG 12 lead (11/02/2024 1:18 PM EDT) Pathologist [facility] Ventricular Rate 74 BPM GE MUSE Atrial Rate 74 BPM GE MUSE VT Interval 138 ms GE MUSE QRS DURATION 84 ms GE MUSE QT Interval 454 ms GE MUSE QTC CALCULATION(BAZE TT) 503 ms GE MUSE P [place] 54 degrees GE MUSE R-[place] 41 degrees GE MUSE T Wave [place] 77 degrees GE MUSE 11/02/2024 1:02 PM [...] Griffin Diaz ([id number]) on 11/02/2024 10:58:13 PM Ky Ritter MD ECG ORDERABLES Final Result Performing Organization Address City/[facility]/ZIP Co de Phone Number GE MUSE * (ABNORMAL) High Sensitivity Troponin I (11/02/2024 1:01 PM EDT) [facility] High Sensitivity Troponin I 47(H) <15 ng/L 11/02/2024 1:57 PM EDT [facility] ([facility]) Blood Venous blood specimen / Unknown Existing Catheter / Unknown 11/02/2024 1:01 PM EDT 11/02/2024 1:19 PM EDT Ky Ritter MD LAB BLOOD ORDERABLES Final Re sult [facility] ([facility]) [address] [place] [address] * (ABNORMAL) POCT glucose meter (11/02/2024 11:07 AM EDT) [facility] Glucose POC 115(H) 70 - 105 mg/dL 11/02/2024 11:18 AM EDT [facility] ([facility]) Comment:[email or web address] Blood Capillary blood specimen / Unknown 11/02/2024 11:07 AM EDT 11/02/2024 11:18 AM EDT Narrative [facility] ([facility]) - 11/02/2024 11:18 AM EDT Waived Testing in the ED is performed under the ED CLIA certificate #[id number]. us Ky Ritter MD LAB BLOOD ORDERABLES Final Re sult Performing Organization Address [facility] de Phone Number [facility]) [address] [place] [address] * (ABNORMAL) POCT glucose meter (11/02/2024 7:31 AM EDT) Glucose POC 150(H) 70 - 105 mg/dL 11/02/2024 7:42 AM EDT [facility] ([facility]) Comment:[email or web address] Blood Capillary blood specimen / Unknown 11/02/2024 7:31 AM EDT 11/02/2024 7:42 AM EDT Narrative [facility] ([facility]) - 11/02/2024 7:42 AM EDT Waived Testing in the ED is performed under the ED CLIA certificate #[id number]. us Ky Ritter MD LAB BLOOD ORDERABLES Final Re sult Performing Organization Address [facility] Number [facility]) [address] [place] [address] * Light Green Top (11/02/2024 6:15 AM EDT) Extra Tube Hold for add-ons. 11/02/2024 8:01 AM EDT [facility] ([facility]) Comment:Auto resulted. Blood Venous blood specimen / Unknown Existing Catheter / Unknown 11/02/2024 6:15 AM EDT 11/02/2024 6:38 AM EDT us Ky Ritter MD LAB BLOOD ORDERABLES Final Re sult Performing Organization Address [facility]/State/ZIP Co de Phone Number [facility] ([facility]) [address], [place] [id number] * (ABNORMAL) CBC (11/02/2024 6:15 AM EDT) Auto WBC 4.49 4.00 - 10.60 10*3/uL 11/02/2024 7:18 AM EDT [facility] ([facility]) RBC 3.69(L) 3.80 - 5.00 10*6/uL 11/02/2024 7:18 AM EDT [facility] ([facility]) Hemoglobin 10.8(L) 12.0 - 15.0 g/dL 11/02/2024 7:18 AM EDT [facility] ([facility]) Hematocrit 33.3(L) 36.0 - 45.0 % 11/02/2024 7:18 AM EDT [facility] ([facility]) MCV 90.2 82.0 - 98.0 fL 11/02/2024 7:18 AM EDT [facility] ([facility]) MCH 29.3 27.0 - 33.0 pg 11/02/2024 7:18 AM EDT [facility] ([facility]) MCHC 32.4 32.0 - 35.0 g/dL 11/02/2024 7:18 AM EDT [facility] ([facility]) RDW 13.4 11.5 - 15.0 % 11/02/2024 7:18 AM EDT [facility] ([facility]) Platelets 292 150 - 400 10*3/uL 11/02/2024 7:18 AM EDT [facility] ([facility]) Blood Venous blood specimen / Unknown 11/02/2024 6:15 AM EDT 11/02/2024 6:37 AM EDT us Debbie Luna [facility] BLOOD ORDERABLES Final Resu lt [facility]) [address], [place] [id number] * (ABNORMAL) POCT glucose meter (11/01/2024 8:42 PM EDT) Glucose POC 106(H) 70 - 105 mg/dL 11/01/2024 8:54 PM EDT [facility] ([facility]) Comment:[email or web address] Blood Capillary blood specimen / Unknown 11/01/2024 8:42 PM EDT 11/01/2024 8:54 PM EDT [facility] ([facility]) - 11/01/2024 8:54 PM EDT Waived Testing in the ED is performed under the ED CLIA certificate #[id number]. Ky Ritter MD LAB BLOOD ORDERABLES Final Re sult Performing Organization Address City/[facility]/ZIP Co de Phone Number [facility]) [address] [place] [address] * POCT glucose meter (11/01/2024 6:04 PM EDT) Glucose POC 102 70 - 105 mg/dL 11/01/2024 6:20 PM EDT [facility] ([facility]) Comment:[email or web address] Blood Capillary blood specimen / Unknown 11/01/2024 6:04 PM EDT 11/01/2024 6:20 PM EDT [facility] ([facility]) - 11/01/2024 6:20 PM EDT Waived Testing in the ED is performed under the ED CLIA certificate #[id number]. Ky Ritter MD LAB BLOOD ORDERABLES Final Re sult Performing Organization Address City/[facility]/ZIP Co de Phone Number [facility] ([facility]) [address] [place] [address] * (ABNORMAL) Activated clotting time (11/01/2024 4:36 PM EDT) Activated Clotting Time 160(H) 82 - 152 s 11/02/2024 12:11 PM EDT [facility] ([facility]) Blood Venous blood specimen / Unknown 11/01/2024 4:36 PM EDT 11/02/2024 12:11 PM EDT us Ky Ritter MD LAB POINT OF CARE TE ST DOCKED DEVICE UNSOLICITED RESULTS Final Result [facility] ([facility]) [address] [place] [address] * (ABNORMAL) POCT activated clotting time docked device (11/01/2024 4:33 PM EDT) [facility] Signature Activated Clotting Time POC 160(A) 82 - 152 sec [facility] ([facility]) Blood 11/01/2024 4:33 PM EDT Ky Ritter MD LAB POINT OF CARE TEST DOCKED DEVICE ORDERABLES Final Result [facility] ([facility]) [address] [place] [address] * CORONARY ANGIOGRAPHY, ULTRASOUND - CORONARY (11/01/2024 [...] on TPN presents a direct admission from [facility] with chief complaint of chest pain. She [...] infiltrated over the right femoral artery. A 5-Montenegrin Terumo sheath was placed in right femoral [...] was maintained at >250 seconds. A 5 Montenegrin Cordis XB 3.0 guide was engaged to the left main. I decided to proceed with IVUS. I then advanced a Runthrough wire to the distal left anterior descending. Next, I advanced a Closet Couture IVUS catheter. IVUS imaging was performed and [...] Activated clotting time (11/01/2024 1:27 PM EDT) Activated Clotting Time 332(H) 82 - 152 s 11/01/2024 1:37 PM EDT [facility] ([facility]) Blood Venous blood specimen / Unknown 11/01/2024 1:27 PM EDT 11/01/2024 1:36 PM EDT us Ky Ritter MD LAB POINT OF CARE TE ST DOCKED DEVICE UNSOLICITED RESULTS Final Result Performing Organization Address City/[facility]/ZIP Co de Phone Number [facility]) [address] [place] [address] * (ABNORMAL) Activated clotting time (11/01/2024 1:14 PM EDT) Activated Clotting Time 222(H) 82 - 152 s 11/01/2024 1:19 PM EDT [facility]) Blood Venous blood specimen / Unknown 11/01/2024 1:14 PM EDT 11/01/2024 1:19 PM EDT Ky Ritter MD LAB POINT OF CARE TE ST DOCKED DEVICE UNSOLICITED RESULTS Final Result Performing Organization Address City/[facility]/ZIP Co de Phone Number [facility]) [address] [place] [address] * ECG 12 lead (11/01/2024 12:09 PM EDT) Ventricular Rate 76 BPM GE MUSE Atrial Rate 76 BPM GE MUSE VT Interval 132 ms GE MUSE QRS DURATION 84 ms GE MUSE QT Interval 444 ms GE MUSE QTC CALCULATION(BAZE TT) 499 ms GE MUSE P [place] 72 degrees GE MUSE R-[place] 50 degrees GE MUSE T Wave [place] 89 degrees GE MUSE 11/01/2024 11:5 7 AM EDT 11/01/2024 11:37 PM EDT Impressions GE MUSE - 11/01/2024 11:37 PM EDT Normal sinus rhythm T ciro, consider anterior and high lateral ischemia Prolonged QT Abnormal ECG Confirmed by Griffin Diaz ([id number]) on 11/01/2024 11:37:39 PM Narrative Procedure Note Jonelle Harrison MD - 11/01/2024 IMPRESSION: Normal sinus rhythm T jemmanges, consider anterior and high lateral ischemia Prolonged QT Abnormal ECG Confirmed by Griffin Diaz ([id number]) on 11/01/2024 11:37:39 PM Ky Ritter MD ECG ORDERABLES Final Result GE MUSE * (ABNORMAL) POCT glucose meter (11/01/2024 11:30 AM EDT) Pathologist [facility] Glucose POC 109(H) 70 - 105 mg/dL 11/01/2024 12:44 PM EDT [facility] ([facility]) Comment:[email or web address] Blood Capillary blood specimen / Unknown 11/01/2024 11:30 AM EDT 11/01/2024 12:44 PM EDT Narrative [facility] ([facility]) - 11/01/2024 12:44 PM EDT Waived Testing in the ED is performed under the ED CLIA certificate #[id number]. us Ky Ritter MD LAB BLOOD ORDERABLES Final Re sult Performing Organization Address City/[facility]/ZIP Co de Phone Number [facility] ([facility]) [address] [place] [address] * (ABNORMAL) Basic metabolic panel (11/01/2024 10:10 AM EDT) Sodium 137 136 - 145 mmol/L 11/01/2024 10:50 AM EDT [facility] ([facility]) Potassium 4.6 3.5 - 5.1 mmol/L 11/01/2024 10:50 AM EDT [facility] ([facility]) Chloride 106 98 - 107 mmol/L 11/01/2024 10:50 AM EDT [facility] ([facility]) CO2 27 21 - 31 mmol/L 11/01/2024 10:50 AM EDT [facility] ([facility]) BUN 9 7 - 25 mg/dL 11/01/2024 10:50 AM EDT [facility] ([facility]) Creatinine 0.53(L) 0.60 - 1.20 mg/dL 11/01/2024 10:50 AM EDT [facility] ([facility]) Glucose 98 70 - 100 mg/dL 11/01/2024 10:50 AM EDT [facility] ([facility]) Calcium 8.6 8.6 - 10.3 mg/dL 11/01/2024 10:50 AM EDT [facility] ([facility]) Anion Gap 9 7 - 20 mmol/L 11/01/2024 10:50 AM EDT [facility] ([facility]) eGFR 123.6 >60.0 mL/min/1. 73m*2 11/01/2024 10:50 AM EDT [facility] ([facility]) Comment:[facility] s estimated glomerular filtration rate (eGFR) [...] BUN/Creatinine Ratio 17.0 10/16 10:50 AM EDT [facility] ([facility]) Blood Venous blood specimen / Unknown Existing Catheter / Unknown 11/01/2024 10:10 AM EDT 11/01/2024 10:25 AM EDT us Ky Ritter MD LAB BLOOD ORDERABLES Final Re sult [facility] ([facility]) [address] [place] [address] * (ABNORMAL) CBC (11/01/2024 10:10 AM EDT) Auto WBC 4.80 4.00 - 10.60 10*3/uL 11/01/2024 10:40 AM EDT [facility] ([facility]) RBC 3.87 3.80 - 5.00 10*6/uL 11/01/2024 10:40 AM EDT [facility] ([facility]) Hemoglobin 11.3(L) 12.0 - 15.0 g/dL 11/01/2024 10:40 AM EDT [facility] ([facility]) Hematocrit 34.6(L) 36.0 - 45.0 % 11/01/2024 10:40 AM EDT [facility] ([facility]) MCV 89.4 82.0 - 98.0 fL 11/01/2024 10:40 AM EDT [facility] ([facility]) MCH 29.2 27.0 - 33.0 pg 11/01/2024 10:40 AM EDT [facility]) MCHC 32.7 32.0 - 35.0 g/dL 11/01/2024 10:40 AM EDT [facility] ([facility]) RDW 13.2 11.5 - 15.0 % 11/01/2024 10:40 AM EDT [facility] ([facility]) Platelets 300 150 - 400 10*3/uL 11/01/2024 10:40 AM EDT [facility] ([facility]) Blood Venous blood specimen / Unknown Existing Catheter / Unknown 11/01/2024 10:10 AM EDT 11/01/2024 10:25 AM EDT us Ky Ritter MD LAB BLOOD ORDERABLES Final Re sult [facility]) [address] [place] [address] * (ABNORMAL) POCT glucose meter (11/01/2024 7:43 AM EDT) Glucose POC 162(H) 70 - 105 mg/dL 11/01/2024 7:55 AM EDT [facility]) Comment:[email or web address] Blood Capillary blood specimen / Unknown 11/01/2024 7:43 AM EDT 11/01/2024 7:55 AM EDT Narrative [facility] ([facility]) - 11/01/2024 7:55 AM EDT Waived Testing in the ED is performed under the ED CLIA certificate #[id number]. Ky Ritter MD LAB BLOOD ORDERABLES Final Re sult Performing Organization Address City/[facility]/ZIP Co de Phone Number [facility]) [address] [place] [address] * (ABNORMAL) High Sensitivity Troponin I (11/01/2024 6:42 AM EDT) [facility] High Sensitivity Troponin I 19(H) <15 ng/L 11/01/2024 7:02 AM EDT [facility] ([facility]) Blood Venous blood specimen / Unknown Existing Catheter / Unknown 11/01/2024 6:42 AM EDT 11/01/2024 6:42 AM EDT Debbie Luna [employer] LAB BLOOD ORDERABLES Final Resu lt Performing Organization Address [facility] Co de Phone Number [facility]) [address] [place] [address] * (ABNORMAL) Anti-Xa (Heparin Level) (11/01/2024 6:04 AM EDT) Pathologist [facility] Anti-Xa (Heparin) 0.27(L) 0.3 - 0.7 IU/mL 11/01/2024 6:37 AM EDT [facility]) Comment:Rivaroxaban and Apix aban will interfere with the anti Xa assay used to monitor UFH and LMWH. Blood Blood sample taken from central line / Unknown Existing Catheter / Unknown 11/01/2024 6:04 AM EDT 11/01/2024 6:15 AM EDT Ky Ritter MD LAB BLOOD ORDERABLES Final Re sult Performing Organization Address [facility]/ZIP Co de Phone Number [facility] ([facility]) [address] [place] [address] * (ABNORMAL) POCT glucose meter (11/01/2024 6:02 AM EDT) Glucose POC 114(H) 70 - 105 mg/dL 11/01/2024 6:13 AM EDT [facility] ([facility]) Comment:[email or web address] Blood Capillary blood specimen / Unknown 11/01/2024 6:02 AM EDT 11/01/2024 6:13 AM EDT Narrative [facility] ([facility]) - 11/01/2024 6:13 AM EDT Waived Testing in the ED is performed under the ED CLIA certificate #[id number]. Ky Ritter MD LAB BLOOD ORDERABLES Final Re sult Performing Organization Address [facility] Co de Phone Number [facility] ([facility]) [address] [place] [address] * (ABNORMAL) Toxicology Screen, Urine (11/01/2024 2:12 AM EDT) Pathologist [facility] Barbiturates Negative Negative 11/01/2024 2:57 AM EDT [facility] ([facility]) Benzodiazepines Positive(A) Negative 11/02/19 2:57 AM EDT [facility] ([facility]) Propoxyphene Negative Negative 11/01/2024 2:57 AM EDT [facility] ([facility]) Methadone Negative Negative 11/01/2024 2:57 AM EDT [facility] ([facility]) Tricyclics Negative Negative 11/01/2024 2:57 AM EDT [facility] ([facility]) Phencyclidine Negative Negative 11/01/2024 2:57 AM EDT [facility] ([facility]) Opiates Positive(A) Negative 11/01/2024 2:57 AM EDT [facility] ([facility]) Cocaine Negative Negative 11/01/2024 2:57 AM EDT [facility] ([facility]) Amphetamines/Metha mphetamine Negative Negative 11/01/2024 2:57 AM EDT [facility] ([facility]) Cannabinoid Negative Negative 11/01/2024 2:57 AM EDT [facility] ([facility]) Urine Urine specimen obtained by clean catch procedure / Unknown Non-blood Collection / Unknown 11/01/2024 2:12 AM EDT 11/01/2024 2:18 AM EDT Narrative [facility] ([facility]) - 11/01/2024 2:57 AM EDT Unconfirmed screening results should only be used for medical purposes. Ky Ritter MD LAB URINE ORDERABLES Final Re sult Performing Organization Address City/[facility] Co de Phone Number [facility] ([facility]) [address] [place] [address] * POCT glucose meter (10/31/2024 8:20 PM EDT) [facility] Glucose POC 90 70 - 105 mg/dL 10/31/2024 8:33 PM EDT [facility] ([facility]) Comment:[email or web address] Blood Capillary blood specimen / Unknown 10/31/2024 8:20 PM EDT 10/31/2024 8:33 PM EDT Narrative [facility]) - 10/31/2024 8:33 PM EDT Waived Testing in the ED is performed under the ED CLIA certificate #[id number]. Ky Ritter MD LAB BLOOD ORDERABLES Final Re sult Performing Organization Address City/[facility] Co de Phone Number [facility]) [address] [place] [address] * CORONARY ANGIOGRAPHY, LEFT HEART CATH (10/31/2024 [...] informed consent. she was brought to the laboratory monitor in a fasting state. The left wrist area was prepped and draped in usual fashion. Micropuncture technique was used for access in the radial artery. A 5-Montenegrin x 11 cm sheath was placed. Verapamil was given through the sheath, and heparin was administered intravenously. A 5 Montenegrin JR4 diagnostic catheter was advanced and this [...] catheter was then downsized to a 4 Montenegrin JR4 diagnostic catheter however this also was not able to engage the right coronary artery. Catheter was exchanged to a JR4 diagnostic catheter which could not engage the left coronary artery. Catheter was exchanged to a 4 Montenegrin JL 3.5 diagnostic catheter which eventually was able to engage the left coronary artery. Angiography was performed in multiple views. Catheter was exchanged over the wire to a 4 Montenegrin 3DRC catheter. Multiple attempts were made to [...] Study Details NSTEMI (non-ST elevated myocardial infarction) (CMS/[facility]) [I21.4] us Ky Ritter MD CV CARDIAC CATH PROCEDURES Fi nal Result * POCT glucose meter (10/31/2024 11:55 AM EDT) [facility] Glucose POC 82 70 - 105 mg/dL 10/31/2024 12:06 PM EDT [facility] ([facility]) Comment:[email or web address] Blood Capillary blood specimen / Unknown 10/31/2024 11:55 AM EDT 10/31/2024 12:06 PM EDT Narrative [facility] ([facility]) - 10/31/2024 12:06 PM EDT Waived Testing in the ED is performed under the ED CLIA certificate #[id number]. us Ky Ritter MD LAB BLOOD ORDERABLES Final Re sult [facility] ([facility]) [address] [place] [address] * LIMITED ECHO (TTE) W/ COLOR FLOW AND IMAGING AGENT (10/31/2024 11:40 AM EDT) Anatomical Region Laterality Modality Other 10/31/2024 11:1 6 AM EDT Narrative 10/31/2024 12:44 PM EDT 1 1 [facility] Heart Station [address] [place] [address] [phone] (fax) Echocardiogram-[facility] Name: JUAN KONG Study Date: 10/31/2024 11:16 AM B/P: 106 mmHg/67 mmHg HR: 70 bpm Date of : 1990 Location: [facility] Height: 66 in. Age: 34 year(s) Patient Room: [facility] Weight: 181 lb. Gender: Female Patient Status: [...] Procedure Staff Reading Group: [facility] Human Resource Professional: DAVID Kearney, RDCS Ordering Physician: KY RITTER Wall Motion Scores -1 - hyperkinesia, 0 - not evaluated, 1 - normal, 2 - hypokinesia, 3 - akinesia, 4 - dyskinesia Procedure Note Mitul Moya MD - 10/31/2024 1 1 [facility] Heart Station [address] [place] [address] [phone] (fax) Echocardiogram-[facility] Name: JUAN KONG Study Date: 10/31/2024 11:16 AM B/P: 106 mmHg/67 mmHg HR: 70 bpm Date of : 1990 Location: [facility] Height: 66 in. Age: 34 year(s) Patient [...] Procedure Staff Reading Group: [facility] Human Resource Professional: DAVID Kearney, RDCS Ordering Physician: KY RITTER Wall Motion Scores -1 - hyperkinesia, 0 - not evaluated, 1 - normal, 2 - hypokinesia, 3 - akinesia, 4 - dyskinesia us Ky Ritter MD CV ECHO PROCEDURES Final Resu lt * ECG 12 lead (10/31/2024 8:47 AM EDT) Pathologist [facility] Ventricular Rate 69 BPM GE MUSE Atrial Rate 69 BPM GE MUSE VT Interval 146 ms GE MUSE QRS DURATION 86 ms GE MUSE QT Interval 460 ms GE MUSE QTC CALCULATION(BAZE TT) 492 ms GE MUSE P [place] 56 degrees GE MUSE R-[place] 55 degrees GE MUSE T Wave [place] 71 degrees GE MUSE 10/31/2024 8:43 AM [...] Ky Ritter MD ECG ORDERABLES Final Result Performing Organization Address [facility] Co de Phone Number GE MUSE * ECG 12 lead (10/31/2024 8:25 AM EDT) [facility] Ventricular Rate 70 BPM GE MUSE Atrial Rate 70 BPM GE MUSE VT Interval 148 ms GE MUSE QRS DURATION 86 ms GE MUSE QT Interval 460 ms GE MUSE QTC CALCULATION(BAZE TT) 496 ms GE MUSE P [place] 61 degrees GE MUSE R-[place] 59 degrees GE MUSE T Wave [place] 77 degrees GE MUSE 10/31/2024 8:15 AM [...] POCT glucose meter (10/31/2024 7:22 AM EDT) [facility] Glucose POC 87 70 - 105 mg/dL 10/31/2024 7:33 AM EDT [facility] ([facility]) Comment:[email or web address] Blood Capillary blood specimen / Unknown 10/31/2024 7:22 AM EDT 10/31/2024 7:33 AM EDT Narrative [facility] ([facility]) - 10/31/2024 7:33 AM EDT Waived Testing in the ED is performed under the ED CLIA certificate #[id number]. us Ky Ritter MD LAB BLOOD ORDERABLES Final Re sult [facility] ([facility]) [address] [place] [address] * Hemoglobin A1c (10/31/2024 6:27 AM EDT) [facility] Hemoglobin A1C 4.5 4.0 - 6.0 % 10/31/2024 1:13 PM EDT [facility] ([facility]) Estimated Average Glucose 82 mg/dL 10/31/2024 1:13 PM EDT [facility] ([facility]) Blood Blood sample taken from central line / Unknown Existing Catheter / Unknown 10/31/2024 6:27 AM EDT 10/31/2024 7:01 AM EDT Ky Ritter MD LAB BLOOD ORDERABLES Final Re sult [facility]) [address] [place] [address] * (ABNORMAL) Lipid panel (10/31/2024 6:27 AM EDT) [facility] Triglycerides 84 <150 mg/dL 10/31/2024 9:31 AM EDT [facility] ([facility]) Comment: TRIGLYCERIDE REFERENCE RANGE: 20 YEARS AND OLDER CARDIOVASCULAR RISK LESS THAN 150 mg/dL LOW RISK 150 TO 199 mg/dL BORDERLINE RISK 200 mg/dL AND GREATER HIGH RISK Cholesterol 116(L) 120 - 200 mg/dL 10/31/2024 9:31 AM EDT [facility] ([facility]) LDL Calculated 56 0 - 160 mg/dL 10/31/2024 9:31 AM EDT [facility] ([facility]) HDL 43 23 - 92 mg/dL 10/31/2024 9:31 AM EDT [facility] ([facility]) Non HDL Cholesterol 73 10/31/2024 9:31 AM EDT [facility] ([facility]) Total VLDL-C 17 0 - 40 mg/dL 10/31/2024 9:31 AM EDT [facility] ([facility]) Cholesterol/HDL Ratio 2.7 mg/dL 10/31/2024 9:31 AM EDT [facility] ([facility]) Blood Blood sample taken from central line / Unknown Existing Catheter / Unknown 10/31/2024 6:27 AM EDT 10/31/2024 7:11 AM EDT Ky Ritter MD LAB BLOOD ORDERABLES Final Re sult Performing Organization Address City/[facility]/ZIP Co de Phone Number [facility]) [address] [place] [address] * (ABNORMAL) Magnesium (10/31/2024 6:27 AM EDT) Magnesium 1.8(L) 1.9 - 2.7 mg/dL 10/31/2024 8:29 AM EDT [facility] ([facility]) Blood Blood sample taken from central line / Unknown Existing Catheter / Unknown 10/31/2024 6:27 AM EDT 10/31/2024 7:11 AM EDT us Ky Ritter MD LAB BLOOD ORDERABLES Final Re sult [facility]) [address] [place] [address] * Anti-Xa (Heparin Level) (10/31/2024 6:27 AM EDT) [facility] Anti-Xa (Heparin) 0.53 0.3 - 0.7 IU/mL 10/31/2024 7:27 AM EDT [facility] ([facility]) Comment:Rivaroxaban and Apix aban will interfere with the anti Xa assay used to monitor UFH and LMWH. Blood Blood sample taken from central line / Unknown Existing Catheter / Unknown 10/31/2024 6:27 AM EDT 10/31/2024 6:41 AM EDT us Sandeep Casey MD LAB BLOOD ORDERABLES Final Resul t [facility] ([facility]) [address] [place] [address] * (ABNORMAL) CBC (10/31/2024 6:27 AM EDT) [facility] Auto WBC 3.65(L) 4.00 - 10.60 10*3/uL 10/31/2024 7:19 AM EDT [facility] ([facility]) RBC 3.21(L) 3.80 - 5.00 10*6/uL 10/31/2024 7:19 AM EDT [facility] ([facility]) Hemoglobin 9.4(L) 12.0 - 15.0 g/dL 10/31/2024 7:19 AM EDT [facility] ([facility]) Hematocrit 29.2(L) 36.0 - 45.0 % 10/31/2024 7:19 AM EDT [facility] ([facility]) MCV 91.0 82.0 - 98.0 fL 10/31/2024 7:19 AM EDT [facility] ([facility]) MCH 29.3 27.0 - 33.0 pg 10/31/2024 7:19 AM EDT [facility] ([facility]) MCHC 32.2 32.0 - 35.0 g/dL 10/31/2024 7:19 AM EDT [facility] ([facility]) RDW 13.3 11.5 - 15.0 % 10/31/2024 7:19 AM EDT [facility] ([facility]) Platelets 235 150 - 400 10*3/uL 10/31/2024 7:19 AM EDT [facility] ([facility]) Blood Blood sample taken from central line / Unknown Existing Catheter / Unknown 10/31/2024 6:27 AM EDT 10/31/2024 7:01 AM EDT us Debbie Luna [employer] LAB BLOOD ORDERABLES Final Resu lt [facility] ([facility]) [address] [place] [address] * (ABNORMAL) Basic metabolic panel (10/31/2024 6:27 AM EDT) Sodium 140 136 - 145 mmol/L 10/31/2024 7:52 AM EDT [facility] ([facility]) Potassium 4.0 3.5 - 5.1 mmol/L 10/31/2024 7:52 AM EDT [facility] ([facility]) Chloride 110(H) 98 - 107 mmol/L 10/31/2024 7:52 AM EDT [facility] ([facility]) CO2 26 21 - 31 mmol/L 10/31/2024 7:52 AM EDT [facility] ([facility]) BUN 5(L) 7 - 25 mg/dL 10/31/2024 7:52 AM EDT [facility] ([facility]) Creatinine 0.60 0.60 - 1.20 mg/dL 10/31/2024 7:52 AM EDT [facility] ([facility]) Glucose 83 70 - 100 mg/dL 10/31/2024 7:52 AM EDT [facility] ([facility]) Calcium 7.7(L) 8.6 - 10.3 mg/dL 10/31/2024 7:52 AM EDT [facility] ([facility]) Anion Gap 8 7 - 20 mmol/L 10/31/2024 7:52 AM EDT [facility] ([facility]) eGFR 120.0 >60.0 mL/min/1. 73m*2 10/31/2024 7:52 AM EDT [facility] ([facility]) Comment:[facility] s estimated glomerular filtration rate (eGFR) [...] BUN/Creatinine Ratio 8.3 10/16 7:52 AM EDT [facility] ([facility]) Blood Blood sample taken from central line / Unknown Existing Catheter / Unknown 10/31/2024 6:27 AM EDT 10/31/2024 7:11 AM EDT [facility] LAB BLOOD ORDERABLES Final Resu lt Performing Organization Address City/[facility]/ZIP Co de Phone Number [facility] ([facility]) [address] [place] [address] * (ABNORMAL) High Sensitivity Troponin I (10/31/2024 6:27 AM EDT) [facility] High Sensitivity Troponin I 61(HH) <15 ng/L 10/31/2024 7:58 AM EDT [facility]) Blood Blood sample taken from central line / Unknown Existing Catheter / Unknown 10/31/2024 6:27 AM EDT 10/31/2024 7:11 AM EDT [facility] LAB BLOOD ORDERABLES Final Resu lt [facility]) [address] [place] [address] * Anti-Xa (Heparin Level) (10/31/2024 1:38 AM EDT) Pathologist [facility] Anti-Xa (Heparin) 0.47 0.3 - 0.7 IU/mL 10/31/2024 2:03 AM EDT [facility] ([facility]) Comment:Rivaroxaban and Apix aban will interfere with the anti Xa assay used to monitor UFH and LMWH. Blood Venous blood specimen / Unknown Existing Catheter / Unknown 10/31/2024 1:38 AM EDT 10/31/2024 1:42 AM EDT Sandeep Casey MD LAB BLOOD ORDERABLES Final Resul t [facility] ([facility]) [address] [place] [address] * (ABNORMAL) High Sensitivity Troponin I (10/31/2024 1:38 AM EDT) High Sensitivity Troponin I 129(HH) <15 ng/L 10/31/2024 2:33 AM EDT [facility] ([facility]) Blood Blood sample taken from central line / Unknown Existing Catheter / Unknown 10/31/2024 1:38 AM EDT 10/31/2024 1:44 AM EDT us Debbie Luna CNP LAB BLOOD ORDERABLES Final Resu lt Performing Organization Address City/[facility]/ZIP Co de Phone Number [facility]) [address] [place] [address] * POCT glucose meter (10/30/2024 9:12 PM EDT) Glucose POC 97 70 - 105 mg/dL 10/30/2024 9:23 PM EDT [facility] ([facility]) Comment:[email or web address] Blood Capillary blood specimen / Unknown 10/30/2024 9:12 PM EDT 10/30/2024 9:23 PM EDT Narrative [facility] ([facility]) - 10/30/2024 9:23 PM EDT Waived Testing in the ED is performed under the ED CLIA certificate #[id number]. Sandeep Casey MD LAB BLOOD ORDERABLES Final Resul t [facility] ([facility]) [address] [place] [address] * ECG 12 lead (10/30/2024 8:00 PM EDT) Ventricular Rate 83 BPM GE MUSE Atrial Rate 83 BPM GE MUSE VT Interval 144 ms GE MUSE QRS DURATION 88 ms GE MUSE QT Interval 410 ms GE MUSE QTC CALCULATION(BAZE TT) 482 ms GE MUSE P [place] 62 degrees GE MUSE R-[place] 19 degrees GE MUSE T Wave [place] 56 degrees GE MUSE 10/30/2024 7:48 PM [...] (102) on 10/31/2024 9:14:03 PM Debbie Luna [facility] ECG ORDERABLES Final Result Performing Organization Address City/[facility]/ZIP Co de Phone Number GE MUSE * (ABNORMAL) Anti-Xa (Heparin Level) (10/30/2024 7:11 PM EDT) Anti-Xa (Heparin) <0.10(LL) 0.3 - 0.7 IU/mL 10/30/2024 8:27 PM EDT [facility] ([facility]) Comment:Rivaroxaban and Apix aban will interfere with the anti Xa assay used to monitor UFH and LMWH. Blood Venous blood specimen / Unknown Existing Catheter / Unknown 10/30/2024 7:11 PM EDT 10/30/2024 7:18 PM EDT Sandeep Casey MD LAB BLOOD ORDERABLES Final Resul t Performing Organization Address City/[facility]/ZIP Co de Phone Number [facility]) [address] [place] [address] * (ABNORMAL) aPTT - baseline (10/30/2024 7:11 PM EDT) Pathologist [facility] aPTT 42.0(H) 25.0 - 35.0 Seconds 10/30/2024 7:48 PM EDT [facility] ([facility]) Comment:Clinical significanc e of the APTT is questionable in the presence of heparin. Blood Venous blood specimen / Unknown Existing Catheter / Unknown 10/30/2024 7:11 PM EDT 10/30/2024 7:18 PM EDT [facility] LAB BLOOD ORDERABLES Final Resu lt Performing Organization Address [facility] Co de Phone Number [facility]) [address] [place] [address] * TSH3 Reflex to FT4 (10/30/2024 7:11 PM EDT) [facility] TSH 3.46 0.34 - 5.60 mIU/L 10/30/2024 8:01 PM EDT [facility] ([facility]) Blood Venous blood specimen / Unknown Existing Catheter / Unknown 10/30/2024 7:11 PM EDT 10/30/2024 7:18 PM EDT [facility] LAB BLOOD ORDERABLES Final Resu lt Performing Organization Address City/[facility]/ZIP Co de Phone Number [facility]) [address], [place] [id number] * (ABNORMAL) CBC auto differential (10/30/2024 7:11 PM EDT) [facility] Auto WBC 4.32 4.00 - 10.60 10*3/uL 10/30/2024 7:51 PM EDT [facility] ([facility]) RBC 3.30(L) 3.80 - 5.00 10*6/uL 10/30/2024 7:51 PM EDT [facility] ([facility]) Hemoglobin 9.7(L) 12.0 - 15.0 g/dL 10/30/2024 7:51 PM EDT [facility] ([facility]) Hematocrit 29.6(L) 36.0 - 45.0 % 10/30/2024 7:51 PM EDT [facility] ([facility]) MCV 89.7 82.0 - 98.0 fL 10/30/2024 7:51 PM EDT [facility] ([facility]) MCH 29.4 27.0 - 33.0 pg 10/30/2024 7:51 PM EDT [facility] ([facility]) MCHC 32.8 32.0 - 35.0 g/dL 10/30/2024 7:51 PM EDT [facility] ([facility]) RDW 13.4 11.5 - 15.0 % 10/30/2024 7:51 PM EDT [facility] ([facility]) Neutrophils % 44.2 40.0 - 72.0 % 10/30/2024 7:51 PM EDT [facility] ([facility]) Lymphocytes % 44.9 20.0 - 45.0 % 10/30/2024 7:51 PM EDT [facility] ([facility]) Monocytes % 7.9 5.0 - 12.0 % 10/30/2024 7:51 PM EDT [facility] ([facility]) Eosinophils % 2.1 0.0 - 6.0 % 10/30/2024 7:51 PM EDT [facility] ([facility]) Basophils % 0.9 0.0 - 1.0 % 10/30/2024 7:51 PM EDT [facility] ([facility]) Neutrophils Absolute 1.91 1.60 - 7.60 10*3/uL 10/30/2024 7:51 PM EDT [facility] ([facility]) Lymphocytes Absolute 1.94 1.20 - 4.00 10*3/uL 10/30/2024 7:51 PM EDT [facility] ([facility]) Monocytes Absolute 0.34 0.10 - 1.00 10*3/uL 10/30/2024 7:51 PM EDT [facility] ([facility]) Eosinophils Absolute 0.09 0.00 - 0.50 10*3/uL 10/30/2024 7:51 PM EDT [facility] ([facility]) Basophils Absolute 0.04 0.00 - 0.20 10*3/uL 10/30/2024 7:51 PM EDT [facility] ([facility]) Platelets 272 150 - 400 10*3/uL 10/30/2024 7:51 PM EDT [facility] ([facility]) nRBC % 0.0 0 % 10/30/2024 7:51 PM EDT [facility] ([facility]) Immature Granulocytes % 0.0 0.0 - 1.0 % 10/30/2024 7:51 PM EDT [facility] ([facility]) Immature Granulocytes Absolute 0.00 0.00 - 0.20 10*3/uL 10/30/2024 7:51 PM EDT [facility] ([facility]) Blood Venous blood specimen / Unknown Existing Catheter / Unknown 10/30/2024 7:11 PM EDT 10/30/2024 7:18 PM EDT [employer] [facility] BLOOD ORDERABLES Final Resu lt [facility] ([facility]) [address] [place] [address] * B-type natriuretic peptide (10/30/2024 7:11 PM EDT) BNP 77 0 - 100 pg/mL 10/30/2024 7:49 PM EDT [facility] ([facility]) Blood Venous blood specimen / Unknown Existing Catheter / Unknown 10/30/2024 7:11 PM EDT 10/30/2024 7:18 PM EDT [employer] LAB BLOOD ORDERABLES Final Resu lt [facility] ([facility]) [address] [place] [address] * (ABNORMAL) Protime-INR (10/30/2024 7:11 PM EDT) Protime 14.8 12.3 - 14.8 Seconds 10/30/2024 7:47 PM EDT [facility] ([facility]) INR 1.15(H) 0.90 - 1.10 10/30/2024 7:47 PM EDT [facility] ([facility]) Comment: ACCCP RECOMMENDED INR FOR [...] 10/30/2024 7:18 PM EDT us Debbie Luna [facility] BLOOD ORDERABLES Final Resu lt [facility] ([facility]) [address] [place] [address] * Phosphorus (10/30/2024 7:11 PM EDT) Phosphorus 4.4 2.5 - 5.0 mg/dL 10/30/2024 7:46 PM EDT [facility] ([facility]) Blood Venous blood specimen / Unknown Existing Catheter / Unknown 10/30/2024 7:11 PM EDT 10/30/2024 7:18 PM EDT [facility] LAB BLOOD ORDERABLES Final Resu lt [facility] ([facility]) [address], [place] [id number] * (ABNORMAL) HIGH SENSITIVITY TROPONIN I (10/30/2024 7:11 PM EDT) High Sensitivity Troponin I 337(HH) <15 ng/L 10/30/2024 7:53 PM EDT [facility] ([facility]) Blood Venous blood specimen / Unknown Existing Catheter / Unknown 10/30/2024 7:11 PM EDT 10/30/2024 7:18 PM EDT [facility] LAB BLOOD ORDERABLES Final Resu lt Performing Organization Address City/[facility]/ZIP Co de Phone Number [facility]) [address] [place] [address] * (ABNORMAL) Magnesium (10/30/2024 7:11 PM EDT) Magnesium 1.7(L) 1.9 - 2.7 mg/dL 10/30/2024 7:46 PM EDT [facility] ([facility]) Blood Venous blood specimen / Unknown Existing Catheter / Unknown 10/30/2024 7:11 PM EDT 10/30/2024 7:18 PM EDT [facility] BLOOD ORDERABLES Final Resu lt [facility] ([facility]) [address], [place] [id number] * (ABNORMAL) Comprehensive metabolic panel (10/30/2024 7:11 PM EDT) Sodium 139 136 - 145 mmol/L 10/30/2024 7:46 PM EDT [facility] ([facility]) Potassium 3.7 3.5 - 5.1 mmol/L 10/30/2024 7:46 PM EDT [facility] ([facility]) Chloride 110(H) 98 - 107 mmol/L 10/30/2024 7:46 PM EDT [facility] ([facility]) CO2 23 21 - 31 mmol/L 10/30/2024 7:46 PM EDT [facility] ([facility]) Anion Gap 10 7 - 20 mmol/L 10/30/2024 7:46 PM T [facility] ([facility]) BUN 5(L) 7 - 25 mg/dL 10/30/2024 7:46 PM EDT [facility] ([facility]) Creatinine 0.64 0.60 - 1.20 mg/dL 10/30/2024 7:46 PM EDT [facility] ([facility]) BUN/Creatinine Ratio 7.8 10/16 7:46 PM T [facility] ([facility]) Glucose 101(H) 70 - 100 mg/dL 10/30/2024 7:46 PM T [facility] ([facility]) Calcium 7.8(L) 8.6 - 10.3 mg/dL 10/30/2024 7:46 PM T [facility] ([facility]) AST 19 13 - 39 U/L 10/30/2024 7:46 PM EDT [facility] ([facility]) ALT (SGPT) 7 7 - 52 U/L 10/30/2024 7:46 PM T [facility] ([facility]) Alkaline Phosphatase 45 34 - 104 U/L 10/30/2024 7:46 PM T [facility] ([facility]) Total Protein 5.0(L) 6.0 - 8.3 g/dL 10/30/2024 7:46 PM T [facility] ([facility]) Albumin 3.2(L) 3.5 - 5.7 g/dL 10/30/2024 7:46 PM T [facility] ([facility]) Total Bilirubin 0.2(L) 0.3 - 1.0 mg/dL 10/30/2024 7:46 PM EDT [facility] ([facility]) eGFR 118.1 >60.0 mL/min/1. 73m*2 10/30/2024 7:46 PM EDT [facility]) Comment:[facility] estimated glomerular filtration rate (eGFR) [...] EDT 10/30/2024 7:18 PM EDT us Debbie Mahmoodcarlee [facility] BLOOD ORDERABLES Final Resu lt [facility]) [address] [place] [address] documented in this encounter Visit [...] (ECG) (EKG) NSTEMI (non-ST elevated myocardial infarction) ([facility]) Acute myocardial infarction, subendocardial infarction, episode of care unspecified NSTEMI (non-ST elevated myocardial infarction) ([facility]) Acute myocardial infarction, subendocardial infarction, episode of care unspecified Angina pectoris, unstable ([facility]) Intermediate coronary syndrome Spontaneous dissection of coronary artery documented in this encounter Admitting Diagnoses Diagnosis Chest pain Unspecified chest pain NSTEMI (non-ST elevated myocardial infarction) ([facility]) Acute myocardial infarction, subendocardial infarction, episode of [...] Given 11/05/2024 10:21 AM EDT 81 mg clopidogrel (Plavix) tablet 75 mg 75 [...] fentaNYL (Sublimaze) injection As needed, Starting on Wed11/01/24 at 1241, Intraprocedure Given 11/01/2024 12:53 PM EDT 25 mcg Given 11/01/2024 12:41 PM EDT 25 mcg glucose chewable tablet [...] heparin (porcine) injection As needed, Starting on Wed11/01/24 at 1314, Intraprocedure Given 11/01/2024 1:19 PM EDT 2,000 Units Given 11/01/2024 1:14 PM EDT 5,000 Units heparin irrigation 2 units/mL in NS As needed, Starting on Wed11/01/24 at 1223, Intraprocedure Given 11/01/2024 12:23 PM EDT 2,000 mL HYDROcodone-acetaminophen ([place]) 5-325 mg per tablet 1 tablet 1 tablet, oral, Every 4 hours PRN, moderate pain (4-7 pain score), Starting on Wed11/02/24 at 1331, For 96 days Given 11/03/2024 10:11 AM EDT 1 table t HYDROcodone-acetaminophen ([place]) 5-325 mg per tablet 2 tablet 2 [...] mg iodine/mL injection As needed, Starting on Wed11/01/24 at 1330, Intraprocedure Given 11/01/2024 1:30 PM EDT 75 mL levothyroxine (Synthroid, Levoxyl) tablet 75 mcg [...] 11/06/2024 10:58 AM EDT 1 patch Other lidocaine (PF) (Xylocaine) 10 mg/mL (1 %) injection As needed, Starting on Wed11/01/24 at 1250, Intraprocedure Given 11/01/2024 12:50 PM EDT 10 mL liothyronine (Cytomel) tablet 5 mcg 5 mcg, [...] midazolam (Versed) injection As needed, Starting on Wed11/01/24 at 1241, Intraprocedure Given 11/01/2024 12:53 PM EDT 1 mg Given 11/01/2024 12:41 PM EDT 1 mg mirtazapine (Remeron) tablet [...] 0.9 % infusion Continuous PRN, Starting on Wed11/01/24 at 1223, Intraprocedure New Bag 11/01/2024 12:23 PM EDT 100 mL/hr 100 mL/hr sodium [...] 99 days 1021 (Given - Provider: Joanna French, RN) 0933 (Given - Provider: Fang Oreilly, RN) 0900 (Given - Provider: Patricia Butt, DEE) enoxaparin (Lovenox) syringe 30 mg 30 mg, subcutaneous, 2 times daily, First dose on Wed11/03/24 at 1000, For 99 days 1021 (Given - Provider: Joanna French, DEE)2336 (Given - Provider: Radha Godoy RN - Comment: patient is on Carafate must seperate medications by two hours) 0932 (Given - Provider: Fang Oreilly RN)2106 (Given - Provider: Christine Baker RN) 0855 (Given - Provider: Patricia Butt, [...] Christine Baker, RN)0856 (Given - Provider: Patricia Butt RN)1610 [...] 99 days 0630 (Given - Provider: Radha Godoy, RN)1355 (Given - Provider: Joanna French, RN)2336 [...] Joanna French RN)1300 (Rate/Dose Verify - Provider: Joanan French RN)1440 (Stopped - Provider: Joanna French [...] at 0851 1633 (Given - Provider: Joanna French, DEE) albuterol 90 mcg/actuation inhaler 2 puff 2 [...] Radha Godoy RN)1030 (Given - Provider: Joanna French, DEE)1634 (Given - Provider: Joanna French, DEE)2249 (Given - Provider: Radha Godoy, DEE) 0550 [...] Joanna French RN)1633 (Given - Provider: Joanna French, RN)1934 (Given - Provider: Radha Godoy RN)2224 (Given - Provider: Radha Godoy RN) 0700 (Given - Provider: Radha Godoy RN)0908 (Given - Provider: Fang Oreilly RN)1100 [...] IV fluids or tube feeding bolus) HYDROcodone-acetaminophen ([place]) 5-325 mg per tablet 1 tablet(Linked Group [...] Butt RN)1449 (See Alternative - Provider: Patricia Butt, RN) HYDROcodone-acetaminophen ([place]) 5-325 mg per tablet 2 tablet(Linked Group 4) 2 tablet, oral, Every 4 hours PRN, severe pain (8-10 pain score), Starting on [place] 11/02/24 at 1331, For 96 days 0401 (Given - Provider: Radha Godoy RN)1138 (Given - Provider: Joanna French RN)1604 (Given - Provider: Joanna French RN) 0553 (Given - Provider: Radha Godoy RN)0932 (Given - Provider: Fang Oreilly, DEE)1300 (Given - Provider: Fang Oreilly, DEE) 0909 (Given - Provider: Patricia Butt RN)1449 (Given - Provider: Patricia Butt RN) HYDROmorphone (Dilaudid) injection 0.2 mg (CANCELED) 0.2 mg, intravenous, Every 3 hours PRN, use only if oral route not available or oral medications ineffective., moderate-severe pain (4-10 pain score), Starting on Wed11/03/24 at 1429, For 99 days 0638 (Given - Provider: Radha Godoy, DEE) hydrOXYzine pamoate (Vistaril) capsule 50 mg 50 [...] Joanna French, DEE)2347 (Given - Provider: Radha Godoy RN) melatonin tablet 5 mg 5 mg, [...] or chew. 0630 (Given - Provider: Radha Godoy, DEE)0731 (Given - Provider: Radha Godoy, RN)1134 (Given - Provider: Joanna French RN) [...] on Wed10/30/24 at 1913, For 99 days traMADol (Ultram) [...] or tube feeding bolus) Group 4: HYDROcodone-acetaminophen ([place]) 5-325 mg per tablet 1 tabletJump to med 1 tablet, oral, Every 4 hours PRN, moderate pain (4-7 pain score), Starting on [facility] 11/02/24 at 1331, For 96 days Or HYDROcodone-acetaminophen ([place]) 5-325 mg per tablet 2 tabletJump to med 2 tablet, oral, Every 4 hours PRN, severe pain (8-10 pain score), Starting on [facility] 11/02/24 at 1331, For 96 days Group [...] days documented in this encounter Care Teams Barn Manager Relationship Specialty Start Date End Date Thomas Alas MD [id number] [place] [address] PCP - General Family Medicine 08/17/24 documented as of this encounter
--- OUTSIDE RECORDS SUMMARY | 2024-11-02 17:41 | XMS_ITS | Encounter Summary ---
Author Organization [facility] Address [address] [place] [address] Care Team Providers Care Set Up And Lay Out Inspector Name Role Phone Thomas Alas MD Primary Care Provider [phone] Reason for Visit * Auth/Cert (Routine) Specialty Diagnoses / Procedures Referred By Contac t Referred To Contact Diagnoses Chest pain NSTEMI Procedures NO CODED SERVICE Sandeep Casey MD [address] [place] [address] Phone: tel: fax: [facility] [address] [place] [address] Phone: tel: fax: Referral ID Status Reason Start Date Expiration Date Visits Re quested Visits Authorized [id number] 1 1 Encounter Details Date Type Department Care Team (Late st Contact Info) Description 11/02/2024 5:41 PM EDT - 11/02/2024 6:41 PM EDT Surgery [facility] [address] [place] [address] Wali Collins MD [address] [place] [address] Coronary angiography Social History Tobacco Use Types Packs/Day Years Used Date Smoking Tobacco: Never Smokeless Tobacco: Never [facility] Utilities Answer Date Recorded In the past 12 months has [employer] electric, gas, oil, or water company threatened [...] living in a alf (including now)? No 10/30/2024 Hunger Vital Sign [...] Sign Reading Time Taken Comments Blood Pressure 92/59 11/02/2024 6:40 PM EDT Pulse 83 11/02/2024 6:40 PM EDT Temperature 35.9 C (96.7 F) 11/02/2024 11:45 AM EDT Respiratory Rate 15 11/02/2024 6:40 PM EDT Oxygen Saturation 100% 11/02/2024 6:40 PM EDT Inhaled Oxygen Concentration - - Weight 84.9 kg (187 lb 1.6 oz) 11/02/2024 1:15 A M EDT Height 167.6 cm (5' 5.98 ) 10/31/2024 3:20 AM ED T Body Mass Index 29.62 10/31/2024 3:20 AM EDT documented in this encounter Functional Status * Question Answer Date of Assessment Author BP 92/59 11/02/2024 6:40 PM EDT Nathalie Hurd RN Pulse 83 11/02/2024 6:40 PM EDT Nathalie Hurd RN * Quershi Fall Risk Question Answer Date of Assessment Author History of Falling, Immediat e or Within 3 Months 0 11/02/2024 7:39 AM EDT Patricia Butt RN Secondary Diagnosis 15 11/02/2024 7:39 AM ED T Patricia Butt RN Ambulatory Aid 0 11/02/2024 7:39 AM EDT Car rPatricia RN Intravenous Therapy/Heparin Lock 20 11/03/19 7:39 AM EDT Patricia Butt RN Gait/Transferring 0 11/02/2024 7:39 AM EDT Patricia Butt RN Mental Status 0 11/02/2024 7:39 AM EDT Patricia Butt RN Qureshi Fall Risk Score 35 11/02/2024 7:39 AM EDT Patricia Butt RN * Cyrus Scale Question Answer Date of Assessment Author Cyrus No Risk Interventions Continue to assess patient according to level of care 10/31/2024 8:30 AM EDT Jami Bridges RN Sensory Perceptions 4 11/02/2024 7:39 AM ED T Patricia Butt RN Moisture 4 11/02/2024 7:39 AM EDT Patricia Butt RN Activity 3 11/02/2024 7:39 AM EDT Patricia Butt RN Mobility 4 11/02/2024 7:39 AM EDT Patricia Butt RN Nutrition 3 11/02/2024 7:39 AM EDT Patricia Butt RN Friction and Shear 3 11/02/2024 7:39 AM EDT Patricia Butt RN Cyrus Scale Score 21 11/02/2024 7:39 AM EDT Patricia Butt RN * Patient's Stated Pain Goal Answer Date of Assessment Author 3 11/02/2024 6:13 PM EDT Myesha Hurd RN * Streator Fall Risk Interventions Question Answer Date of Assessment Author Streator Fall Risk Interventions Complete 025 7:39 AM EDT Patricia Butt RN * Patient Requests Lesser Strength Medication Answer Date of Assessment Author Patient Request for Lesser Medication 11/01/2024 8:04 PM EDT Fern Pierce RN * Pain Assessment Timer Question Answer Date of Assessment Author Restart Pain Assessment Timer Yes 11/02/2024 6:13 PM EDT Nathalie Hurd RN * Sepsis Model Scores Question Answer Date of Assessment Author Early Detection of Sepsis Score 1.6 6:31 PM EDT Delano Guzman * Pain Assessment Question Answer Date of Assessment Author Pain Location Abdomen 11/01/2024 8:04 PM EDT Fern Pierce RN Pain Orientation Left 11/01/2024 8:04 PM EDT Fern Pierce RN Pain Interventions Emotional support;Environmental changes 11/02/2024 7:39 AM EDT Patricia Butt RN Pain Onset Ongoing 11/01/2024 8:04 PM EDT Fern Pierce RN Response to Interventions No improvement 2024 10:57 AM EDT Patricia Butt RN Pain Type Chronic pain 11/02/2024 7:39 AM EDT Patircia Butt RN Clinical Progression Gradually improving 025 7:39 AM EDT Patricia Butt RN Patient Behaviors None 11/02/2024 7:3 9 AM EDT Patricia Butt RN Pain Assessment No/denies pain 11/02/2024 4:45 PM EDT Nathalie Hurd RN * Pain Score Answer Date of Assessment Author 7 11/02/2024 6:13 PM EDT Myesha Hurd RN * Audit Alcohol Screening Question Answer [...] of Assessment Author Heart Rate Source Monitor 11/02/2024 11:45 AM EDT Patricia Butt RN Patient Position Lying 11/02/2024 11:45 AM EDT Patricia Butt RN * Deterioration Index Score Question Answer Date of Assessment Author Deterioration Index Score 35.29 11/02/2024 6:31 PM EDT Thomas, Batchq * Head, Ears, Eyes, Nose, and Throat (HEENT) Question Answer Date of Assessment Author Head, Ears, Eyes, Nose, and Throat (WDL) X 11/02/2024 7:39 AM EDT Patricia Butt R N R Eye Mildly impaired vision;Corrective lenses 11/02/2024 7:39 AM EDT Patricia Butt RN L Eye Mildly impaired vision;Corrective lenses 11/02/2024 7:39 AM EDT Patricia Butt RN R Ear Intact 11/02/2024 7:39 AM EDT Patricia Butt RN L Ear Intact 11/02/2024 7:39 AM EDT Patricia Butt RN Nose Intact 11/02/2024 7:39 AM EDT Patricia Butt RN Throat Intact 11/02/2024 7:39 AM EDT Patricia Butt RN Tongue [place];Moist 11/02/2024 7:39 AM EDT Patricia Butt RN Mucous Membrane(s) Moist;[place];Intact 11/02/2024 7:39 AM EDT Patricia Butt RN Teeth Intact 11/02/2024 7:39 AM EDT Patricia Butt RN Head and Face Symmetrical 11/02/2024 7:39 AM EDT Patricia Butt RN Neck Symmetrical 11/02/2024 7:39 AM EDT Patricia Butt RN Lips Dry;Moist;[place] 11/02/2024 7:39 AM EDT Patricia Thorne RN * Short Portable Mental Status Question Answer Date of Assessment Author What are the date, month, year? 0 7:39 AM EDT Patricia Butt RN What is the day of the week? 0 11/02/2024 7 :39 AM EDT Patricia Butt RN What is the name of this place? 0 7:39 AM EDT Patricia Butt RN What is your phone number? 0 11/02/2024 7:3 9 AM EDT Patricia Butt RN How old are you? 0 11/02/2024 7:39 AM EDT Patricia Beckham RN When were you born? 0 11/02/2024 7:39 AM ED T Patricia Butt RN Who is the current president? 0 11/02/2024 7:39 AM EDT Patricia Butt RN Who was the president before him? 1 025 7:39 AM EDT Patricia Butt RN * Fall Risk Level Question Answer Date of Assessment Author Mobility zone Low (Green Zone) 11/02/2024 7:39 AM EDT Patricia Butt RN Qureshi fall risk zone Low (Green Zone) 11/02/2024 7:39 AM EDT Patricia Butt RN Mental status questionaire zone Low (Green Zone) 11/02/2024 7:39 AM EDT Patricia Butt RN * Question Answer Date of Assessment Author Pulse rate from Plethysmogram (bpm) 85 11/02 6:40 PM EDT Nathalie Hurd RN * Skin Assessment Sign off Question Answer Date of Assessment Author Dual Sign-off - Admission/Transfer Stacie Cadet RN 10/30/2024 6:32 PM EDT Angeline Keyes RN Any new wounds identified on admission/transfer? No 10/30/2024 6:32 PM EDT Carito Keyes RN Provider notified of new wound No 10/30/2024 6:32 PM EDT Angeline Keyes RN * Vital Signs Question Answer Date of Assessment Author BP 92/59 11/02/2024 6:40 PM EDT Nathalie Hurd RN Pulse 83 11/02/2024 6:40 PM EDT Nathalie Hurd RN Resp 15 11/02/2024 6:40 PM EDT Nathalie Hurd RN SpO2 100 11/02/2024 6:40 PM EDT Nathalie Hurd RN MAP (mmHg) 69 11/02/2024 6:40 PM EDT Nathalie Hurd RN * Question Answer Date of Assessment Author Level of Consciousness Alert 7:39 AM EDT Patricia Butt RN Orientation Level Oriented X4 11/02/2024 7:3 9 AM EDT Patricia Butt RN Cognition Follows commands 11/02/2024 7:39 AM EDT Patricia Butt RN Speech Clear 11/02/2024 7:39 AM EDT Patricia Butt RN L Pupil Reaction Brisk 11/02/2024 7:39 AM EDT Patricia Butt RN L Pupil Size (mm) 4 11/02/2024 7:3 9 AM EDT Patricia Butt RN R Pupil Reaction Brisk 11/02/2024 7:39 AM EDT Patricia Butt RN R Pupil Size (mm) 4 11/02/2024 7:3 9 AM EDT Patricia Butt RN Swallow Able to swallow gina ds and liquids without difficulty 11/02/2024 7:39 AM EDPatricia Miranda RN R Hand Grasp Strong 11/02/2024 7:39 AM EDT Patricia Butt RN L Hand Grasp Strong 11/02/2024 7:39 AM EDT Patricia Butt RN R Foot Dorsiflexion Strong 11/02/2024 7 :39 AM EDT Patricia Butt RN L Foot Dorsiflexion Strong 11/02/2024 7 :39 AM EDT Patricia Butt RN R Foot Plantar Flexion Strong 7:39 AM EDPatricia Miranda RN L Foot Plantar Flexion Strong 7:39 AM EDT Patricia Butt RN R Pupil Shape Round 11/02/2024 7:39 AM EDT Patricia Butt RN L Pupil Shape Round 11/02/2024 7:39 AM EDT Patricia Butt RN Neuro Symptoms None 11/02/2024 7:39 AM EDT Patricia Butt RN Pupil Assessment Yes 11/02/2024 7:39 AM EDT Patricia Butt RN Hand Grasp/Motor Function/Sensation Assessment Grasp;Dorsiflexion;Plan tar flexion 11/02/2024 7:39 AM EDT Patricia Butt RN Facial Symmetry Symmetrical 11/02/2024 7:39 AM EDT Patricia Butt RN * Question Answer Date of Assessment Author Bilateral Breath Sounds Clear;Diminished 11/02/2024 7: 39 AM EDT Patricia Butt RN Respiratory Pattern Normal 11/02/2024 7:39 AM ED T Patricia Butt RN Chest Assessment Chest expansion symmetrical 11/02/2024 7:39 AM EDT Patricia Butt RN Cough None 11/02/2024 7:39 AM EDT Patricia Butt RN Respiratory Effort Unlabored 11/02/2024 7:39 AM EDT Patricia Butt RN Respiratory Depth/Rhythm Shallow 11/02/2024 7:39 AM EDT Patricia Butt RN * Question Answer Date of Assessment Author Ectopy Premature ventricula r contractions 11/01/2024 8:04 PM EDT Fern Pierce RN Ectopy Frequency Rare 11/01/2024 8:04 PM EDT C Fern cotto RN Cardiac Regularity Regular 11/02/2024 7:39 AM EDT Patricia Butt RN Chairman Emeritus Status On 11/02/2024 7:39 AM EDT Patricia Butt RN Telemetry Box Number [id number] 11/02/2024 7:39 AM E DT Patricia Butt RN Jugular Venous Distention (JVD) No 11/02/2024 7:39 AM EDT Patricia Butt RN Cardiac Symptoms Lightheaded;Other (Comment) 11/02/2024 7:39 AM EDT Patricia Butt RN Heart Sounds S1, S2 11/02/2024 7:39 AM EDT Patricia Butt RN * Gastrointestinal Question Answer Date of Assessment Author Last BM Date [id number] 10/31/2024 8:00 PM EDT Fern Pierce RN Passing Flatus Yes 11/02/2024 7:39 AM EDT Patricia Butt RN Abdominal Tenderness Guarding;Soft 11/02/2024 7:39 AM EDT Patricia Butt RN Bowel Sounds (All Quadrants) Hypoactive 11/02/2024 7:39 AM EDT Patricia Butt RN Gastrointestinal (WDL) X 7:39 AM EDT Patricia Butt RN Abdomen Inspection Soft;Rounded;Nondist e nded 11/02/2024 7:39 AM EDT Patricia Butt RN Gastrointestinal Symptoms Nausea 2024 7:39 AM EDT Patricia Butt RN Nausea Precipitating Factors Movement 11/02/2024 7:39 AM EDT Patricia Butt RN Constipation Precipitating Factors Disease related 11/02/2024 7:39 AM EDT Patricia Butt RN Bowel Sounds All quadrants 11/02/2024 7:39 AM EDT Patricia Butt RN * Peripheral Vascular Question Answer Date of Assessment Author Peripheral Vascular (WDL) WDL 11/02/2024 7:39 AM EDT Patricia Butt RN Capillary Refill Less than/equal to 2 seconds (All extremities) 11/02/2024 7:39 AM EDT Patricia Butt RN Pulses Right radial;Left radial;Left posterior tibial;Right posterior tibial;Right pedal;Left pedal 11/02/2024 7:39 AM EDT Patricia Butt RN Cyanosis None 11/02/2024 7:39 AM EDT Patricia Butt RN Peripheral Vascular Additional Assessments Right upper extremity;Right lower extremity;Left upper extremity;Left lower extremity 11/02/2024 7:39 AM EDT Patricia Butt RN * RUE Neurovascular Assessment Question Answer Date of Assessment Author RUE Capillary Refill Less than/equal to 2 seconds 11/02/2024 7:39 AM EDT Patricia Butt RN RUE Color Appropriate for ethnicity 11/02/2024 7:39 AM EDT Patricia Butt RN RUE Temperature/Moisture Warm;Dry 11/02/2024 7:39 AM EDT Patricia Butt RN Right Radial Pulse +2 11/02/2024 7:39 AM EDT Patricia Butt RN * LUE Neurovascular Assessment Question Answer Date of Assessment Author LUE Capillary Refill Less than/equal to 2 seconds 11/02/2024 7:39 AM EDT Patricia Butt RN LUE Color Appropriate for ethnicity 11/02/2024 7:39 AM EDT Patricia Butt RN LUE Temperature/Moisture Warm;Dry 11/02/2024 7:39 AM EDT Patricia Butt RN Left Radial Pulse +2 11/02/2024 7:39 AM EDT Patricia Butt RN * RLE Neurovascular Assessment Question Answer Date of Assessment Author RLE Capillary Refill Less than/equal to 2 seconds 11/02/2024 7:39 AM EDT Patricia Butt RN RLE Color Appropriate for ethnicity 11/02/2024 7:39 AM EDT Patricia Butt RN RLE Temperature/Moisture Warm;Dry 11/02/2024 7:39 AM EDT Patricia Butt RN Right Femoral Pulse +1 11/01/2024 4:30 PM ED T Fern Almazan RN Right Posterior Tibial Pulse +2 11/02/2024 6:30 PM EDT Nathalie Hurd RN Right Pedal Pulse +2 11/02/2024 6:30 PM EDT Nathalie Hurd RN RLLesia Varicose Veins Present No 11/02/2024 7:39 AM EDT Patricia Butt RN RLE DVT Prophylaxis Sequential compressi on device 11/02/2024 7:39 AM EDT Patricia Butt RN * LLE Neurovascular Assessment Question Answer Date of Assessment Author LLE Capillary Refill Less than/equal to 2 seconds 11/02/2024 7:39 AM EDT Patricia Butt RN LLE Color Appropriate for ethnicity 11/02/2024 7:39 AM EDT Patricia Butt RN LLE Temperature/Moisture Warm;Dry 11/02/2024 7:39 AM EDT Patricia Butt RN Left Posterior Tibial Pulse +1 11/02/2024 7:39 AM EDT Patricia Butt RN Left Pedal Pulse +2 11/02/2024 7:39 AM EDT Patricia Beckham RN LLLesia Varicose Veins Present No 11/02/2024 7:39 AM EDT Patricia Butt RN LLLesia DVT Prophylaxis Sequential compressi on device 11/02/2024 7:39 AM EDT Patricia Butt RN * Musculoskeletal Question Answer Date of Assessment Author RUE Full movement 11/02/2024 7:39 AM EDT Patricia Butt RN RLE Full movement 11/02/2024 7:39 AM EDT Patricia Butt RN LUE Full movement 11/02/2024 7:39 AM EDT Patricia Butt RN LLE Full movement 11/02/2024 7:39 AM EDT Patricia Butt RN Musculoskeletal (WDL) WDL 11/02/2024 7:39 AM EDT Patricia Butt RN * Psychosocial Question Answer Date of Assessment Author Patient Behaviors/Mood Calm 11/02/2024 7:39 AM EDT Patricia Butt RN Needs Expressed Physical 11/02/2024 7:39 AM EDT Ca Patricia cutler RN Psychosocial (WDL) WDL 11/02/2024 7:39 AM EDT Patricia Butt RN Ability to Express Feelings Able to express 11/02/2024 7:39 AM EDT Patricia Butt RN Ability to Express Needs Able to express 11/02/2024 7: 39 AM EDT Patricia Butt RN Ability to Express Thoughts Able to express 11/02/2024 7:39 AM EDT Patricia Butt RN Ability to Understand Others Understands 11/02/2024 7 :39 AM EDT Patricia Butt RN * Kiera Fall Risk Question Answer Date of Assessment Author History of Falling, Immediat e or Within 3 Months 0 11/02/2024 7:39 AM EDT Patricia Butt RN Secondary Diagnosis 15 11/02/2024 7:39 AM ED T Patricia Butt RN Ambulatory Aid 0 11/02/2024 7:39 AM EDT Car Patricia ahumada RN Intravenous Therapy/Heparin Lock 20 11/03/19 7:39 AM EDT Patricia Butt RN Gait/Transferring 0 11/02/2024 7:39 AM EDT Patricia Butt RN Mental Status 0 11/02/2024 7:39 AM EDT Patricia Butt RN Qureshi Fall Risk Score 35 11/02/2024 7:39 AM EDT Patricia Butt RN * Cyrus Scale Question Answer Date of Assessment Author Cyrus Milner Risk Interventions Continue to assess patient according to level of care 10/31/2024 8:30 AM EDT Jami Bridges RN Sensory Perceptions 4 11/02/2024 7:39 AM ED T Patricia Butt RN Moisture 4 11/02/2024 7:39 AM EDT Patricia Butt RN Activity 3 11/02/2024 7:39 AM EDT Patricia Butt RN Mobility 4 11/02/2024 7:39 AM EDT Patricia Butt RN Nutrition 3 11/02/2024 7:39 AM EDT Patricia Butt RN Friction and Shear 3 11/02/2024 7:39 AM EDT Patricia Butt RN Cyrus Scale Score 21 11/02/2024 7:39 AM EDT Patricia Butt RN * LLE Sensation Answer Date of Assessment Author No tingling;No pain;No numbness 11/01/2024 4:30 PM EDT Fern Almazan RN * RLE Motor Response Answer Date of Assessment Author Responds to commands 11/02/2024 7:39 AM EDT Patricia Butt RN * RLE Sensation Answer Date of Assessment Author Full sensation 11/02/2024 7:39 AM EDT Fatuma Butt RN * Charting Type Question Answer Date of Assessment Author Charting Type Shift assessment 11/02/2024 7:39 AM EDT Patricia Butt RN * Patient's Stated Pain Goal Answer Date of Assessment Author 3 11/02/2024 6:13 PM EDT Myesha Hurd RN * Cultural Requests During Hospitalization Answer Date of Assessment Author None 11/01/2024 7:56 AM EDT Fatuma Butt RN * Spiritual Requests During Hospitalization Answer Date of Assessment Author Pentecostal 11/01/2024 7:56 AM EDT Fatuma Butt RN * Genitourinary Question Answer Date of Assessment Author Urine Odor No odor 11/02/2024 7:39 AM EDT Patricia Butt RN Female Genitalia Intact 11/02/2024 7:39 AM EDT C Patricia tom RN Genitourinary (WDL) X 11/02/2024 7:39 AM ED T Patricia Butt RN Genitourinary Symptoms Excessive passage of urine 11/02/2024 7:39 AM EDT Patricia Butt RN Suprapubic Tenderness No 11/02/2024 7:39 AM EDT Patricia Butt RN * Patient Monitoring Question Answer Date of Assessment Author Frequency of Checks Twice per hour, standard 7:39 AM EDT Patricia Butt RN * Safe Environment Question Answer Date of Assessment Author Chair Alarms Off 11/02/2024 7:39 AM EDPatricia Miranda RN Arm Bands On ID;Allergies 11/02/2024 7:39 AM EDT Patricia Butt RN Side Rails/Bed Safety 2/4 11/02/2024 7:39 AM JUNT Patricia Butt RN Bed Alarms Off 11/02/2024 7:39 AM EDT Patricia Butt RN The Patient's Environment is Safe Yes 025 7:39 AM EDT Patricia Butt RN * Mobility Question Answer Date of Assessment Author Resting chair 11/02/2024 12:00 PM EDT Patricia Butt RN Activity Performed Patient off unit 11/02/2024 6:00 PM Patricia Malone RN Repositioned Other (Comment) 11/02/2024 6:00 PM EDT Patricia Ambrose RN Level of Assistance Independent 11/02/2024 7:39 AM ED T Patricia Butt RN Head of Bed Elevated Self regulated 11/02/2024 12:00 PM EDT Patricia Butt RN Heels/Feet Footrest of chair elevated 11/02/2024 7:39 AM Patricia Malone RN Range of Motion Active;All extremities 11/02/2024 7:39 AM Patricia Malone RN Anti-Embolism Devices Bilateral;Sequenti al compression devices, below knee 11/02/2024 7:39 AM Patricia Malone RN Anti-Embolism Intervention Off 11/02/2024 7:39 AM Patricia Malone RN Patient's mobility zone Zone 6 11/02/2024 7:39 A M Patricia Malone RN Positioning Frequency Able to turn self 11/03/19 25 12:00 PM Patricia Malone RN * Hygiene Question Answer Date of Assessment Author Skin Care Incontinent cleanser 11/02/2024 7:39 AM E Patricia Tabor RN Hygiene Per self 11/02/2024 7:39 AM Patricia Malone RN Oral Care Per self 11/02/2024 7:39 AM Patricia Malone RN Level of Assistance Minimal assist 11/02/2024 7:39 AM Patricia Malone RN Is Patient Total Care? No 11/02/2024 7:39 AM Patricia Malone RN Incontinence Protective Devices Absorbent pad 11/02/2024 7:39 AM Patricia Malone RN CHG (Chlorhexidine Gluconate) Hygiene Other (Comment) 11/02/2024 12:00 AM Patricia Malone RN * Precautions Question Answer Date of Assessment Author Precautions Bleeding 11/02/2024 7:39 AM Patricia Malone RN * Comfort and Environment Interventions Question Answer Date of Assessment Author Comfort Repositioned 11/02/2024 7:39 AM Patricia Malone RN * ADL Screening Question Answer Date of Assessment Author Do you snore or wake up gasp ing for air? No 10/30/2024 7:51 PM EDT Lowe, Maribel, R N Can you bring in your [...] 10/30/2024 7:51 PM E Maribel Song RN BANKRUPTCY MANAGER Evaluation Needed 2 10/30/2024 7:51 PM EDT Maribel Merchant RN * Assistive Devices Question Answer Date of Assessment Author Assistive Devices Eyeglasses 10/30/2024 7:51 PM EDT Maribel Merchant RN * Provider Notification Question Answer Date of Assessment Author Provider Role Nurse Practitioner 10/30/2024 8:10 PM ED T Fern Pierce RN Provider Name Lesli Luna 10/30/2024 8:10 PM EDT Fern Terry RN Method of Communication Epic Chat 10/30/2024 8:10 P M EDT Fern Pierce RN Reason for Communication Critical lab value 10/30/2024 8:10 PM EDT Fern Pierce RN Response No new orders 10/30/2024 8:10 PM EDT Fern Terry RN Notification Time [id number] 10/30/2024 8:10 PM EDT Fern Pierce RN * Streator Fall Risk Interventions Question Answer Date of Assessment Author Streator Fall Risk Interventions Complete 025 7:39 AM EDT Patricia Butt RN * Patient Requests Lesser Strength Medication Answer Date of Assessment Author Patient Request for Lesser Medication 11/01/2024 8:04 PM EDT Fern Pierce RN * Suicidal Ideation Question Answer Date of Assessment Author 1. Wish to be (Lifetime) No 10/30/2024 7:54 PM EDT Maribel Merchant RN 2. Non-Specific Active Suici martha Thoughts (Lifetime) No 10/30/2024 7:54 PM EDT Maribel Merchant, R N * Sigourney Coma Scale Question Answer Date of Assessment Author Best Eye Response Spontaneous 11/02/2024 7:39 AM EDT Patricia Butt RN Best Verbal Response Oriented 11/02/2024 7:39 AM E Patricia Tabor RN Best Motor Response Follows commands 11/02/2024 7:39 A M EDT Patricia Butt RN Kris Coma Scale Score 15 11/02/2024 7:39 AM EDT Patricia Butt RN * Is this patient currently opioid tolerant (receiving at least 60 mg morphine equivalent per day (MME/day) for past 7 days or longer)? Answer Date of Assessment Author Opioid Tolerant 10/31/2024 11:08 AM EDT Ky Ritter MD * Pain Assessment Question Answer Date of Assessment Author Pain Location Abdomen 11/01/2024 8:04 PM EDT Fern Pierce RN Pain Orientation Left 11/01/2024 8:04 PM EDT Fern Pierce RN Pain Interventions Emotional support;Environmental changes 11/02/2024 7:39 AM EDT Patricia Butt RN Pain Onset Ongoing 11/01/2024 8:04 PM EDT Fern Pierce RN Response to Interventions No improvement 2024 10:57 AM JUNT Patricia Butt RN Pain Type Chronic pain 11/02/2024 7:39 AM Patricia Malone RN Clinical Progression Gradually improving 025 7:39 AM Patricia Malone RN Patient Behaviors None 11/02/2024 7:3 9 AM JUNT Patricia Butt RN Pain Assessment No/denies pain 11/02/2024 4:45 PM EDT Nathalie Hurd RN * Nutrition Question Answer Date of Assessment Author Diet Type Heart healthy 11/02/2024 7:39 AM Patricia Malone RN Feeding Able to feed self 11/02/2024 7:39 AM Patricia Malone RN Appetite Good 11/02/2024 7:39 AM JUNT Patricia Butt RN * Integumentary Question Answer Date of Assessment Author Skin Color Appropriate for race 11/02/2024 7:39 AM E Patricia Tabor RN Skin Condition/Temp Warm;Dry 11/02/2024 7:39 AM Patricia Duncan RN Skin Integrity Other (Comment) 11/02/2024 7:39 AM Patricia Malone RN Skin Turgor Non-tenting 11/02/2024 7:39 AM Patricia Malone RN Integumentary Additional Assessments Tattoos 11/02/2024 7:39 AM Patricia Malone RN Integumentary (WDL) X 11/02/2024 7:39 AM Patricia Duncan RN Does patient have tattoos? Yes 11/02/2024 7:3 9 AM JUNT Patricia Butt RN * GI Interventions Question Answer Date of Assessment Author GI Interventions Performed Encouraged adequate fiber intake;Encouraged adequate fluid intake 11/02/2024 7:39 AM Patricia Malone RN * Question Answer Date of Assessment Author Which is your dominant hand? Right 11/02/2024 7 :39 AM JUNT Patricia Butt RN * Pain Score Answer Date of Assessment Author 7 11/02/2024 6:13 PM EDT Myesha Hurd RN * Question Answer Date of Assessment Author Urinary Frequency Adequate 11/02/2024 9:00 AM JUNT Patricia Butt RN Urine Color Yellow/straw 11/02/2024 9:00 AM Patricia Malone RN Urine Appearance Clear 11/02/2024 9:00 AM EDT Patricia Beckham RN Urinary Incontinence No 11/02/2024 9:00 AM E Patricia Tabor RN * Audit Alcohol Screening Question Answer [...] Assessment Author Patient Goal for Treatment DC 11/02/2024 7:3 9 AM Patricia Malone RN * Drug Screening Question Answer Date of Assessment Author Have you used any substances (canabis, cocaine, heroin, hallucinogens, inhalants, etc.) in the past 12 months? No 10/30/2024 7:53 PM Maribel Cheng R N Have you used any prescripti on drugs other than prescribed in the past 12 months? No 10/30/2024 7:53 PM Maribel Cheng R N * Question Answer Date of Assessment Author Temp 96.7 11/02/2024 11:45 AM Patricia Malone RN Temp src Temporal 11/02/2024 11:45 AM EDT Patricia Butt RN Heart Rate Source Monitor 11/02/2024 11:45 AM EDT Patricia Butt RN BP Location Right arm 11/02/2024 11:45 AM EDT Patricia Butt RN BP Method Automatic 11/02/2024 11:45 AM EDT Patricia Butt RN Cardiac Rhythm NSR 11/02/2024 11:45 AM EDT Patricia Ambrose RN Patient Position Lying 11/02/2024 11:45 AM EDT Patricia Butt RN * Care Plan - Safety Goals Question Answer Date of Assessment Author Free from fall injury Assess patient frequently for physical needs 11/02/2024 7:39 AM EDT Patricia Butt RN * Modified Jesi Question Answer Date of Assessment Author Activity 2 11/02/2024 3:32 PM EDT Nathalie Hurd RN Respiration 2 11/02/2024 3:32 PM EDT Nathalie Hurd RN Circulation 2 11/02/2024 3:32 PM EDT Nathalie Hurd RN Consciousness 2 11/02/2024 3:32 PM EDT Nathalie Lozano RN Oxygen Saturation 2 11/02/2024 3:32 PM EDT Nathalie Hurd RN Modified Jesi Score 10 11/02/2024 3:32 PM EDT Nathalie Hurd RN * Modified Malnutrition Screening Tool (MST) [...] 0 10/30/2024 7:54 PM EDT Maribel Merchant RN * Weight Loss Score Answer Date of Assessment Author 0 10/30/2024 7:54 PM EDT Mireya Merchant RN * Malnutrition Score Answer Date of Assessment Author 0 10/30/2024 7:54 PM EDT Mireya Merchant RN documented as of this encounter Mental Status * Pond Agitation Sedation Scale Question Answer Entry Date Author Pond Agitation Sedation Scale (RASS) 0 11/02/2024 2:54 PM EDT Jory Sierra R N * Sigourney Coma Scale Question Answer Entry Date Author Best Eye Response Spontaneous 11/02/2024 7:39 AM EDT Patricia Butt RN Best Verbal Response Oriented 11/02/2024 7:39 AM E DT Patricia Butt RN Best Motor Response Follows commands 11/02/2024 7:39 A M EDT Patricia Butt RN Kris Coma Scale Score 15 11/02/2024 7:39 AM EDT Patricia Butt RN * Modified Jesi Question Answer Entry Date Author Activity 2 11/02/2024 3:32 PM EDT Nathalie Hurd RN Respiration 2 11/02/2024 3:32 PM EDT Nathalie Hurd RN Circulation 2 11/02/2024 3:32 PM EDT Nathalie Hurd RN Consciousness 2 11/02/2024 3:32 PM EDT Nathalie Lozano RN Oxygen Saturation 2 11/02/2024 3:32 PM EDT Nathalie Hurd RN Modified Jesi Score 10 11/02/2024 3:32 PM EDT Nathalie Hurd RN documented in this encounter Discharge Summaries [...] She presented as a direct admission from [facility] on 10/30/2024 with severe, sharp, left-sided chest pain radiating to the left arm, associated with dizziness, shortness of breath, nausea, and vomiting following her daily infusion therapy. At [place], troponin was 390 and chest X-ray showed mild fluid overload. She was started on heparin infusion and transferred for higher level of care. On arrival to [facility], troponin was 337, hemoglobin 9.7, BNP [...] and recurrent obstruction Follow-up / Referrals: Cardiology: [facility], scheduled 11/14/2024 Urology: For Costello management [...] Center 11/14/2024 3:25 PM Christina Rodriguez CNP CARD [facility] 11/20/2024 2:30 PM Delphine Du NP [facility] [place] [facility] 11/27/2024 2:15 PM Santa Wall CNP [facility] URO Second Fl 12/04/2024 10:00 AM Katie Altamirano MD [facility] Your medication list START taking these [...] as: Tylenol ALBUTEROL INHL ergocalciferol 1.25 MG (89948 Units) capsule Commonly known as: Vitamin D-2 escitalopram 20 mg tablet Commonly known as: Lexapro fentaNYL 25 mcg/hr Commonly known as: Duragesic fentaNYL 12 mcg/hr Commonly known as: Duragesic HYDROcodone-acetaminophen 5-325 mg tablet Commonly known as: [place] hydrocortisone 10 mg tablet Commonly known as: [...] Medications These medications were sent to [facility] [address] [place] [address] [address] [facility] [place] [address], [facility] [address] aspirin 81 mg chewable tablet atorvastatin 80 mg tablet clopidogrel 75 mg tablet metoclopramide 10 mg tablet metoprolol succinate XL 25 mg 24 hr tablet Juan is allergic to codeine, nsaids (non-steroidal anti-inflammatory drug), and adhesive. Disposition: Home-Health Care [facility] () Discharge Condition: Stable Code [...] was 43 minutes. Signed Mauricio Garcia MD [facility] Medicine 11/07/2024 2:48 PM CC: [...] cholesterol);PO diet regular as tolerated. Intakes variable. [place], small meals. ONS. Dietary nutrition supplements BID (breakfast & dinner); Boost Glucose Control; Chocolate; 8 oz;Oral Dietary nutrition supplements Lunch; Gelatein; Spink; 4 oz; Oral [id number] only Adult Cyclic 3-in-1 TPN: 2,300 mL, [...] 11/06/2024 10:30 AM EDT Infusion Center Hematology/Oncology [address] [place] [address] [place] [address] Carroll dressing and cap change;Labs as needed per patient 11/10/2024 2:15 PM EDT Appointment [facility] Endoscopy - ENDO [address] [place] [address] [place] [address] [place] [address] EGD and tube exchange failure to thrive nausea and vomiting 11/13/2024 10:45 AM EDT Infusion Center Hematology/Oncology [address] [place], [place] [address] [place] [place] [address] Hodges dressing and cap change;Labs as needed per patient 11/20/2024 9:15 AM EDT Infusion Center Hematology/Oncology [address] [place] [address] Hodges dressing and cap change;Labs as needed per patient 11/27/2024 9:00 AM EDT Infusion Center Hematology/Oncology [address] [place] [address] [place] [address] Hodges dressing and cap change;Labs as needed per patient 11/30/2024 8:30 AM EDT [facility] Gastroenterology [address] [address] Georgina Barkley MD [facility] [address] [place] [address] HPN / JUSTIN 12/04/2024 9:15 AM EDT Infusion Center Hematology/Oncology [address] [place] [address] [place] [address] Hodges dressing and cap change;Labs as needed [...] Everywhere. * Indwelling Urinary Catheter Care Adult Hrxm-xq-Yujg (Romansh) documented in this encounter Medications at Time [...] Place 1 patch on the skin every (third) day. hydrocortisone (Cortef) 10 mg tablet [...] 11/07/2024 5 ergocalciferol (Vitamin D-2) 1.25 MG (06998 Units) capsule Take 50,000 Units by mouth 1 (one) time per week. 5 fentaNYL (Duragesic) 12 mcg/hr Place 1 patch on the skin every 3rd (third) day. Takes 12 mcg and 25 mcg together every 3 days 5 HYDROcodone-acet aminophen (Vincennes) 5-325 mg tablet Take 2 tablets by mouth every 4 (four) hours if needed for moderate-severe pain (4-10 pain score). 5 documented as of this encounter Progress Notes * Deepika Diallo - 11/07/2024 2:20 PM EDT discharge planning: to Home with [address] Care Patient came to this admission from their private residence in the community; they are reported to be managing their own TPN needs at home, with supplies being provided through [facility]. 1345 - Patient is discharging with a Costello, which is new this admission; Patient agreeable to [facility], no preference of provider, agreeable to mass referral - [facility] referral sent; awaiting replies [address] only accepting [facility] provider; added them to AVS 1512 AVS sent to [address], via urturn system 1613 Patient had costello removed, still appropriate to have [facility] nursing; updated AVS sent to [address], [employer] system * Christina Rodriguez CNP - 11/07/2024 [...] to 0 out of 10. Groin is separator tender after surgery, and GONSALO drain with [...] who came as a direct admission from [facility] due to chest pain. Patient [...] Value Ventricular Rate 91 Atrial Rate 91 MN Interval 134 QRS DURATION 88 QT Interval 386 QTC CALCULATION(BAZETT) 474 P [place] 63 R-[place] 35 T Wave [place] 46 Impression Sinus rhythm with Premature supraventricular complexes Otherwise normal ECG When compared with ECG of 04-NOV-2024 13:40, Premature supraventricular complexes are now Present No results found for: CKTOTAL , CKMB , CKMBINDEX , TROPONINI Limited Echo (TTE) w/wo Limited Doppler, Color Flow, Imaging Agent, Strain, 3D, Bubble Study Result Date: 10/31/2024 1 1 [place] [facility] Heart Station [address] [place] [address] [phone] (fax) Echocardiogram-[facility] Name: JUAN KONG Study Date: 10/31/2024 11:16 AM B/P: 106 mmHg/67 mmHg HR: 70 bpm Date of : 1990 [facility]. Age: 34 year(s) Patient [...] Procedure Staff Reading Group: [facility] Color Mixer: DAVID Kearney, RDCS Ordering Physician: KY RITTER [...] for pt to see us in our [facility] on 11/14/24. Rest of care per primary team Cardiology will continue following along [facility] Cardi[facility] Medicine ADDENDUM: Pt reported her chest pain sx's were improved this afternoon. Pt okay to discharge from a cardiac standpoint. Follow-up as scheduled next week. Of note, discussed with Dr. Gilmore, can consider addition of Ranexa for recurrent chest pain if unable to increase Toprol or verapamil due to low BP. Christina Rodriguez APRN-BETH [facility] Cardiovascular Medicine [1] [...] BID, Sid Cruz, PA-C, 30 mg at 11/07/24 0855 escitalopram (Lexapro) tablet 20 mg, 20 mg, oral, Daily, HENNY Hendrickson-Elroy, 20 mg at 11/07/24 0900 fentaNYL (Duragesic) 12 mcg/hr 1 patch, 1 patch, transdermal, q72h, 1 patch at 11/05/24 1739 AND fentaNYL (Duragesic) 25 mcg/hr 1 patch, 1 patch, transdermal, q72h, Timothy Dee MD, 1 patch at 11/05/24 1739 HYDROcodone-acetaminophen (Vincennes) 5-325 mg per tablet 1 tablet, 1 tablet, oral, q4h PRN, 1 tablet at 11/03/24 1011 OR HYDROcodone-acetaminophen (Vincennes) 5- 325 mg per tablet 2 tablet, [...] Nightly, Rosa Willoughby PA-C, 45 mg at 11/06/242105 naloxone (Narcan) injection 0.1 mg, 0.1 mg, intravenous, PRN, Tiomthy Dee MD ondansetron HCl (PF) (Zofran) injection [...] Dunn MD - 11/07/2024 6:36 AM EDT [facility] Vascular Surgery DAILY PROGRESS NOTE Subjective [...] on TPN presents a direct admission from [facility] with chief complaint of chest [...] infiltrated over the right femoral artery. A 5-[place] Terumo sheath was placed in right femoral [...] was maintained at >250 seconds. A 5 [place] Cordis XB 3.0 guide was engaged to the left main. I decided to proceed with IVUS. I then advanced a Runthrough wire to the distal left anterior descending. Next, I advanced a [employer] IVUS catheter. IVUS imaging was performed and [...] infiltrated over the right femoral artery. A 6-[place] sheath was placed in right femoral artery. Coronary angiography was performed with a JL4 and then repeated after IC nitroglycerin 50 mcg x 2. At this time, it was apparent that the LAD had a moderate stenosis and IVUS and iFR were performed. Heparin anticoagulation was used for this procedure. ACT was maintained at >250 seconds. A 6 [place] xb3 was engaged to the Lmain. I then advanced a 0.014 guidewire to the distal left anterior descending. IVUS imaging was performed with a Intrakrinity catheter after additional IC nitroglycerin and IV [...] concerns. We will continue to follow peripherally Michale Dunn MD General Surgery PGY-1 For non-urgent questions, Epic Chat may be used 0600 - 1800, M-F. For urgent concerns, please call [phone], or ask the pulper operator to connect you to the on-crew caller. For after-hours concerns, please page [phone], or ask the pulper operator to connect you to the on-crew [...] documentation from me. Additional Comments: * Mateusz Acevedoelvira, PT - 11/06/2024 3:29 PM EDT Physical [...] Level of Function Prior Function Level of [place]: Independent with ADLs and functional transfers, Independent [...] the chair for support without cues from fiction and nonfiction prose writer. 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 No routine or PRN bowel [...] PO diet regular as tolerated. Intakes variable. Madison, small meals. ONS. Dextrose 200 g AA [...] Once Comments: Please send Old Fashioned Hot Chauncey [place] entree, with a side of green beans; [...] 11/02/24223411/01/24 1519 Dietary nutrition supplements Lunch; Gelatein; Spink; 4 oz; Oral Until discontinued Comments: When diet advances Question Answer Comment Deliver with Lunch Select supplement: Gelatein Flavor Spink Strength: 4 oz Route Oral 11/01/24 1519 [...] ideal body weight (59.3 kg) Calorie needs: 1865-8098 kcals/day based on 25-30 kcal/kg Protein needs: [...] of Nutrition and Dietetics (AND) and the [place] Society of Enteral and Parenteral Nutrition (ASPEN). Treatment Plan: HPN schedule (MWF) Minor adjustments made based on current labs with plan to titrate to home order. Na Phos 30->20 mmol Continue current diet, snacks & ONS Goals: Advance TF to goal rate Weight maintenance Maintain visceral protein Nutrition-related labs (magnesium, phosphorus, BMP) wnl To reach the Clinical Dietitian, please utilize [employer] chat Wednesday-Wednesday from 8AM-4PM or call extension [phone]. For weekends (Wednesday-Wednesday) and hols, the Clinical Dietitian can be reached via pager ([phone]) from 9AM-3PM. The Clinical Nutrition Department is unable to respond to [employer] chat messages on Sundays and s. [1] Allergies Allergen Reactions Codeine Nausea And Vomiting Nsaids (Non-Steroidal Anti-Inflammatory Drug) GI intolerance Adhesive Rash * Eduarda Bravo PA-C - 11/06/2024 9:03 AM EDT Images from the original note were not included. [facility] Surgical Intensive Care Unit Progress Note [...] 84.8 kg (186 lb 15.2 oz) (11/03) Sigourney Coma Scale Score: 15 I/O last 3 [...] Value Ventricular Rate 74 Atrial Rate 74 MN Interval 138 QRS DURATION 84 QT Interval 454 QTC CALCULATION(BAZETT) 503 P [place] 54 R-[place] 41 T Wave [place] 77 Impression Normal sinus rhythm T abnormalities consider high lateral ischemia Mild ST elevation in V2 and V3 , consider acute septal injury Abnormal ECG Confirmed by Griffin Diaz (102) on 11/02/2024 10:58:13 PM Assessment TThe patient is a 34 y.o. female who presented with an NSTEMI, was taken to the [facility] x2 and hasa an expanding right groin [...] (placed patch every 72hours). Resume home PRN Vincennes 5-325 Q4H, PRN 650 mg Q8H -On [...] to 0 out of 10. Groin is separator tender after surgery, and GONSALO drain with [...] who came as a direct admission from [facility] due to chest pain. Patient [...] Value Ventricular Rate 100 Atrial Rate 100 MN Interval 132 QRS DURATION 94 QT Interval 382 QTC CALCULATION(BAZETT) 492 P [place] 60 R-[place] 34 T Wave [place] 58 Impression Normal sinus rhythm Statement not [...] 1 1 [place] [facility] Heart Station [address] [place] [address] [phone] (fax) Echocardiogram-[facility] Name: JUAN KONG Study Date: 10/31/2024 11:16 AM B/P: 106 mmHg/67 mmHg HR: 70 bpm Date of : 1990 [facility]. Age: 34 year(s) Patient [...] Procedure Staff Reading Group: [place] [facility] Color Mixer: DAVID Kearney, RDCS Ordering Physician: KY RITTER [...] Pena DO Internal Medicine Resident, PGY-2 [facility] 8:20 AM 11/06/24 [1] Current Facility-Administered Medications: acetaminophen (Tylenol) tablet 650 mg, 650 mg, oral, q8h PRN, Sid Haskinsillin, PA-C, 650 mg at 11/05/24 1633 albuterol 90 mcg/actuation inhaler 2 puff, 2 puff, inhalation, q6h PRN, Debbie Luna ANIMAL CONTROL LICENSING WORKER aspirin EC tablet 81 mg, 81 mg, oral, Daily, Sid Cruz PA-C, 81 mg at 11/05/24 1021 atorvastatin (Lipitor) tablet 80 mg, 80 mg, oral, Nightly, HENNY Hendrickson-C, 80 mg at 11/05/24 2336 clopidogrel (Plavix) [...] Sid Cruz PA-C, 30 mg at 11/05/24 2336 [...] Dee MD, 25mcg at 11/06/24 0700 HYDROcodone-acetaminophen (Vincennes) 5-325 mg per tablet 1 tablet, 1 tablet, oral, q4h PRN, 1 tablet at 11/03/24 1011 OR HYDROcodone-acetaminophen (Vincennes) 5- 325 mg per tablet 2 tablet, 2 tablet, oral, q4h PRN, Ky Ritter MD, 2 tablet at 11/06/24 0553 hydrocortisone (Cortef) tablet 10 mg, 10 mg, oral, Daily, Debbie Luna, ANIMAL CONTROL LICENSING WORKER, 10 mg at 11/05/24 1022 HYDROmorphone (Dilaudid) injection 0.2 mg, 0.2 mg, intravenous, q3h PRN, Sid Cruz PA-C, 0.2 mg at 11/05/24 0638 hydrOXYzine pamoate (Vistaril) capsule 50 mg, 50 mg, oral, Nightly PRN, Debbie Luna, ANIMAL CONTROL LICENSING WORKER insulin lispro (HumaLOG) injection 0-5 Units, 0-5 [...] 5 mg, oral, Nightly PRN, Debbie Luna, ANIMAL CONTROL LICENSING WORKER methocarbamol (Robaxin) tablet 750 mg, 750 mg, [...] BID, Rosa Willoughby PA-C, 100 mg at 11/05/242335 traZODone (Desyrel) tablet 100 mg, 100 mg, oral, Nightly, Rosacarito Willoughby PA-C, 100 mg at 11/05/24 233 trimethobenzamide (Tigan) injection 200 mg, 200 mg, intramuscular, q6h PRN, Debbie Cheryl, ANIMAL CONTROL LICENSING WORKER, 200 mg at 11/03/24 0018 verapamil (Calan) [...] combination Sebastian Peña MD, ScM, MSc Cardiac Webmethods Consultant Email: [email or web address] * Anna Etienne MD - 11/06/2024 7:38 AM EDT Images from the original note were not included. [facility] Vascular Surgery DAILY PROGRESS NOTE Subjective [...] per primary Will continue to follow Anna Eteinne MD General Surgery PGY-4 For non-urgent questions, Epic Chat may be used 0600 - 1800, M-F. For urgent concerns, please call [phone], or ask the pulper operator to connect you to the on-crew caller. For after-hours concerns, please page [phone], or ask the pulper operator to connect you to the on-crew caller. Cosigned by Dominic Chappell DO at 11/06/2024 1:53 PM EDT * Mikayla Jennings PA-C - 11/05/2024 2:14 PM EDT Images from the original note were not included. [facility] Vascular Surgery DAILY PROGRESS NOTE Subjective [...] days Lab Units 11/05/24 0901 11/05/24 0348 11/05/244 11/04/24201211/04/24 1338 11/04/24 0505 11/03/24 1834 11/03/24 [...] Results from last 7 days Lab Units 11/05/2434711/04/24201611/04/24 1338 11/04/24 0505 11/03/24 0446 SODIUM mmol/L [...] care per primary Will continue to follow Mkiayla Jennings PA-C Vasular Surgery and Wound Care x [phone] For non-urgent questions, [employer] Chat may be used 0600 - 1800, M-F. For urgent concerns, please call [phone], or ask the pulper operator to connect you to the on-crew caller. For after-hours concerns, please page [phone], or ask the pulper operator to connect you to the on-crew caller. * Christina Rodriguez ANIMAL CONTROL LICENSING WORKER - 11/05/2024 11:00 AM EDT Images from [...] to 0 out of 10. Groin is separator tender after surgery, and GONSALO drain with [...] who came as a direct admission from [facility] due to chest pain. Patient [...] Value Ventricular Rate 100 Atrial Rate 100 MN Interval 132 QRS DURATION 94 QT Interval 382 QTC CALCULATION(BAZETT) 492 P [place] 60 R-[place] 34 T Wave [place] 58 Impression Normal sinus rhythm Statement not [...] 1 1 [place] [facility] Heart Station [address] [place] [address] [phone] (fax) Echocardiogram-[facility] Name: JUAN KONG Study Date: 10/31/2024 11:16 AM B/P: 106 mmHg/67 mmHg HR: 70 bpm Date of : 1990 [facility]. Age: 34 year(s) Patient [...] Procedure Staff Reading Group: [facility] Color Mixer: DAVID Kearney, RDCS Ordering Physician: KY RITTER [...] along Discussed plan with pt, primary RN, production shift supervisor Dr. Alejandro and data management manager Dr. Altamirano. Christina Rodriguez APRN-BETH [facility] Cardiovascular Medicine [1] Current Facility-Administered Medications: acetaminophen (Tylenol) tablet 650 mg, 650 mg, oral, q8h PRN, Sid Cruz, PA-C Adult Cyclic 3-in-1 TPN, 2,300 mL, intravenous, Cyclic TPN, Toamsa Franks MD, Stopped at 11/05/24 1440 albuterol 90 mcg/actuation inhaler 2 puff, 2 puff, inhalation, q6h PRN, Debbie Luna CNP aspirin EC tablet 81 mg, 81 mg, oral, Daily, Sid Cruz, PA-C, 81 mg at 11/05/24 1021 atorvastatin [...] Dee MD, 25mcg at 11/05/24 1446 HYDROcodone-acetaminophen (Vincennes) 5-325 mg per tablet 1 tablet, 1 tablet, oral, q4h PRN, 1 tablet at 11/03/24 1011 OR HYDROcodone-acetaminophen (Vinc[place]) 5- 325 mg per tablet 2 tablet, [...] 50 mg, oral, Nightly PRN, Debbie Luna, ANIMAL CONTROL LICENSING WORKER insulin lispro (HumaLOG) injection 0-5 Units, 0-5 [...] 5 mg, oral, Nightly PRN, Debbie Mahmoodkl, ANIMAL CONTROL LICENSING WORKER methocarbamol (Robaxin) tablet 750 mg, 750 mg, [...] 10 mL, intravenous, q8h PRN, Debbie Pirkl, ANIMAL CONTROL LICENSING WORKER sucralfate (Carafate) tablet 1 g, 1 g, oral, Before meals & nightly, Rosa Willoughby PA-C, 1 g at 11/05/24 1026 topiramate (Topamax) tablet 100 mg, 100 mg, oral, BID, Rosa Willoughby PA-C, 100 mg at 11/05/24 1023 traMADol (Ultram) tablet 50 mg, 50 mg, oral, q6h PRN, Debbiejossie Luna, ANIMAL CONTROL LICENSING WORKER, 50 mg at 11/05/24 1356 traZODone (Desyrel) [...] from the original note were not included. [facility] Vascular Surgery DAILY PROGRESS NOTE Subjective [...] infiltrated over the right femoral artery. A 6-[place] sheath was placed in right femoral artery. Coronary angiography was performed with a JL4 and then repeated after IC nitroglycerin 50 mcg x 2. At this time, it was apparent that the LAD had a moderate stenosis and IVUS and iFR were performed. Heparin anticoagulation was used for this procedure. ACT was maintained at >250 seconds. A 6 [place] xb3 was engaged to the [place]. I [...] informed consent. she was brought to the lab[facility] in a fasting state. The left wrist area was prepped and draped in usual fashion. Micropuncture technique was used for access in the radial artery. A 5-[place] x 11 cm sheath was placed. Verapamil was given through the sheath, and heparin was administered intravenously. A 5 [place] JR4 diagnostic catheter was advanced and this [...] catheter was then downsized to a 4 [place] JR4 diagnostic catheter however this also was not able to engage the right coronary artery. Catheter was exchanged to a JR4 diagnostic catheter which could not engage the left coronary artery. Catheter was exchanged to a 4 [place] JL 3.5 diagnostic catheter which eventually was able to engage the left coronary artery. Angiography was performed in multiple views. Catheter was exchanged over the wire to a 4 [place] 3DRC catheter. Multiple attempts were made to [...] PA-C Vasular Surgery and Wound Care x [phone] For non-urgent questions, [email or web address] Chat may be used 0600 - 1800, M-F. For urgent concerns, please call [phone], or ask the pulper operator to connect you to the on-crew caller. For after-hours concerns, please page [phone], or ask the pulper operator to connect you to the on-crew [...] to 0 out of 10. Groin is separator tender after surgery, and GONSALO drain with [...] who came as a direct admission from [facility] due to chest pain. Patient [...] Value Ventricular Rate 74 Atrial Rate 74 MN Interval 138 QRS DURATION 84 QT Interval 454 QTC CALCULATION(BAZETT) 503 P [place] 54 R-[place] 41 T Wave [place] 77 Impression Normal sinus rhythm T abnormalities [...] 1 1 [place] [facility] Heart Station [address] [place] [address] [phone] (fax) Echocardiogram-[facility] Name: JUAN KOGN Study Date: 10/31/2024 11:16 AM B/P: 106 mmHg/67 mmHg HR: 70 bpm Date of : 1990 [facility]. Age: 34 year(s) Patient [...] Procedure Staff Reading Group: [place] [facility] Color Mixer: DAVID Kearney, RDCS Ordering Physician: KY RITTER [...] infiltrated over the right femoral artery. A 6-[place] sheath was placed in right femoral artery. Coronary angiography was performed with a JL4 and then repeated after IC nitroglycerin 50 mcg x 2. At this time, it was apparent that the LAD had a moderate stenosis and IVUS and iFR were performed. Heparin anticoagulation was used for this procedure. ACT was maintained at >250 seconds. A 6 [place] xb3 was engaged to the [place]. I [...] informed consent. she was brought to the laborer [facility] in a fasting state. The left wrist area was prepped and draped in usual fashion. Micropuncture technique was used for access in the radial artery. A 5-[place] x 11 cm sheath was placed. Verapamil was given through the sheath, and heparin was administered intravenously. A 5 [place] JR4 diagnostic catheter was advanced and this [...] catheter was then downsized to a 4 [place] JR4 diagnostic catheter however this also was not able to engage the right coronary artery. Catheter was exchanged to a JR4 diagnostic catheter which could not engage the left coronary artery. Catheter was exchanged to a 4 [place] JL 3.5 diagnostic catheter which eventually was able to engage the left coronary artery. Angiography was performed in multiple views. Catheter was exchanged over the wire to a 4 [place] 3DRC catheter. Multiple attempts were made to [...] least in part, completed using a voice impregnator and drier system. Every effort was made to ensure accuracy. However, inadvertent computerized impregnator and drier errors may be present. Lisa Pena DO Internal Medicine Resident, PGY-2 [facility] 8:53 AM 11/04/24 Addendum Pt was reported to have chest pain and diaphoresis. EKG unremarkable, in fact st elevations are no longer present. Will add verapamil and recommended blood transfusions given hemoglobin < 8 Marie Alejandro MD PGY-6 Roll Tester [facility] Pager # [phone] [1] Current Facility-Administered Medications: acetaminophen (Tylenol) tablet 650 mg, 650 mg, oral, q8h PRN, Sid Cruz, PA-C Adult Cyclic 3-in-1 TPN, 2,300 mL, intravenous, Cyclic TPN, Kaye FamFort Cobb, RD, Last Rate: 159 mL/hr at 11/04/24 [...] PA-C, 1 patch at 11/03/24 1128 HYDROcodone-acetaminophen ([place]) 5-325 mg per tablet 1 tablet, 1 tablet, oral, q4h PRN, 1 tablet at 11/03/24 1011 OR HYDROcodone-acetaminophen ([place]) 5- 325 mg per tablet 2 tablet, [...] 50 mg, oral, Nightly PRN, Debbie Luna, ANIMAL CONTROL LICENSING WORKER insulin lispro (HumaLOG) injection 0-5 Units, 0-5 [...] 5 mg, oral, Nightly PRN, Debbie Luna, ANIMAL CONTROL LICENSING WORKER methocarbamol (Robaxin) tablet 750 mg, 750 mg, [...] mg, 40 mg, oral, BID AC, Rosa Willoughby, PA-C, 40 mg at 11/04/24 0511 potassium chloride CR (Klor-Con M20) ER tablet 20 mEq, 20 mEq, oral, q1h PRN, Rosa Willoughby, PA-C potassium chloride CR (Klor-Con M20) ER tablet 20 mEq, 20 mEq, oral, q1h PRN, Rosa Willoughby, PA-C potassium chloride CR (Klor-Con M20) ER tablet 20 mEq, 20 mEq, oral, q1h PRN, Rosa Willoughby, PA-C potassium chloride IVPB 10 mEq, 10 mEq, intravenous, q1h PRN AND potassium chloride CR (Klor-Con M20) ER tablet 40 mEq, 40 mEq, oral, q2h PRN, Rosa Willoughby, PA-C potassium chloride IVPB 10 mEq, 10 mEq, intravenous, q1h PRN, Rosa Willoughby, PA-C potassium chloride IVPB 10 mEq, 10 mEq, intravenous, q1h PRN, Rosa Willoughby, PA-C potassium chloride IVPB 10 mEq, 10 mEq, intravenous, q1h PRN, Rosa Willoughby, PA-C potassium chloride IVPB 10 mEq, 10 mEq, intravenous, q1h PRN, Rosa Willoughby PA-C prochlorperazine (Compazine) injection 10 mg, 10 mg, intravenous, Once, Janet Soto MD prochlorperazine (Compazine) injection 5 mg, 5 mg, intravenous, Once PRN, Robin Luz MD sennosides-docusate sodium (Kadie-Colace) 8.6-50 mg per tablet 1 tablet, 1 tablet, oral, Nightly PRN, HENNY Hendrickson-Elroy, 1 tablet at 11/03/24 2202 sod phos di, mono-K phos mono (K Phos Neutral) tablet 2 tablet, 500 mg, oral, q4h PRN, Rosa Willoughby PA-C sod phos di, mono-K phos mono (K Phos Neutral) tablet 4 tablet, 1,000 mg, oral, q4h PRN, HENNY Hendrickson-C [CANCELED] Insert peripheral IV, , , Once AND [CANCELED] Saline lock IV, , , Once AND sodium chloride flush 10 mL, 10 mL, intravenous, q8h PRN, Debbie Luna, ANIMAL CONTROL LICENSING WORKER sucralfate (Carafate) tablet 1 g, 1 g, oral, Before meals & nightly, Rosa Willoughby PA-C, 1 g at 11/04/24 0512 topiramate (Topamax) tablet 100 mg, 100 mg, oral, BID, Rosa Willoughby PA-C, 100 mg at 11/03/24 2211 traMADol (Ultram) tablet 50 mg, 50 mg, oral, q6h PRN, Debbie Luna ANIMAL CONTROL LICENSING WORKER, 50 mg at 11/03/24 1633 traZODone (Desyrel) tablet 100 mg, 100 mg, oral, Nightly, Rosa Willoughby PA-C, 100 mg at 11/03/24 2202 trimethobenzamide (Tigan) injection 200 mg, 200 mg, intramuscular, q6h PRN, Debbie Luna, ANIMAL CONTROL LICENSING WORKER, 200 mg at 11/03/24 0018 Cosigned by Salty Hyatt MD at 11/05/2024 5:02 PM EDT Associated attestation - Salty Hyatt MD - 11/05/2024 5:02 PM EDT Agree with the assessment and plan as documented by the production shift supervisor * Michael Dunn MD - 11/03/2024 6:19 PM EDT Images from the original note were not included. [facility] Vascular Surgery DAILY PROGRESS NOTE Subjective [...] infiltrated over the right femoral artery. A 6-[place] sheath was placed in right femoral artery. Coronary angiography was performed with a JL4 and then repeated after IC nitroglycerin 50 mcg x 2. At this time, it was apparent that the LAD had a moderate stenosis and IVUS and iFR were performed. Heparin anticoagulation was used for this procedure. ACT was maintained at >250 seconds. A 6 [place] xb3 was engaged to the [place]. I [...] informed consent. she was brought to the laborer [place] in a fasting state. The left wrist area was prepped and draped in usual fashion. Micropuncture technique was used for access in the radial artery. A 5-[place] x 11 cm sheath was placed. Verapamil was given through the sheath, and heparin was administered intravenously. A 5 [place] JR4 diagnostic catheter was advanced and this [...] catheter was then downsized to a 4 [place] JR4 diagnostic catheter however this also was not able to engage the right coronary artery. Catheter was exchanged to a JR4 diagnostic catheter which could not engage the left coronary artery. Catheter was exchanged to a 4 [place] JL 3.5 diagnostic catheter which eventually was able to engage the left coronary artery. Angiography was performed in multiple views. Catheter was exchanged over the wire to a 4 [place] 3DRC catheter. Multiple attempts were made to [...] PGY-1 Vascular Surgery Service For non-urgent questions, [email or web address] Chat may be used 0600 - 1800, M-F. For urgent concerns, please call [phone], or ask the pulper operator to connect you to the on-crew caller. For after-hours concerns, please page [phone], or ask the pulper operator to connect you to the on-crew [...] to 0 out of 10. Groin is separator tender after surgery, and GONSALO drain with [...] who came as a direct admission from [facility] due to chest pain. Patient [...] -- -- 94 22 100 % -- 11/02/24 190 116/77 -- -- 95 (!) 27 100 % -- 11/02/24 185 109/81 -- -- 100 15 100 % -- 11/02/241847 99/78 -- -- 85 19 100 % -- 11/02/241844 100/74 -- -- 87 23 -- -- 11/02/241841 104/63 -- -- 88 (!) 9 100 % -- 11/02/241839 92/59 -- -- 83 15 100 % -- 11/02/24 183 103/56 -- -- 90 14 100 % -- 11/02/24 1815 101/66 -- -- 81 14 100 % -- 11/02/24 180 100/56 -- -- 82 12 100 % -- 11/02/24 175 109/69 -- -- 68 12 100 % -- 11/02/241750 108/68 -- -- 72 13 98 % -- 11/02/248 105/67 -- -- 68 15 -- -- 09/18/25 1745 106/70 -- -- 66 13 -- [...] 69 (!) 7 100 % -- 11/02/24 172 120/84 -- -- 67 14 100 % [...] -- -- -- -- 97 % -- 09/18/25 1453 110/70 -- -- 75 19 97 [...] Value Ventricular Rate 74 Atrial Rate 74 MN Interval 138 QRS DURATION 84 QT Interval 454 QTC CALCULATION(BAZETT) 503 P [place] 54 R-[place] 41 T Wave [place] 77 Impression Normal sinus rhythm T abnormalities [...] 1 1 [place] [facility] Heart Station [address] [place] [address] [phone] (fax) Echocardiogram-[facility] Name: JUAN KONG Study Date: 10/31/2024 11:16 AM B/P: 106 mmHg/67 mmHg HR: 70 bpm Date of : 1990 [facility] Age: 34 year(s) Patient Room: [facility] Weight: 181 lb. Gender: Female Patient [...] Procedure Staff Reading Group: [place] [facility] Color Mixer: Raegan Cardona BS, RDCS Ordering Physician: [place] [...] infiltrated over the right femoral artery. A 6-[place] sheath was placed in right femoral artery. Coronary angiography was performed with a JL4 and then repeated after IC nitroglycerin 50 mcg x 2. At this time, it was apparent that the LAD had a moderate stenosis and IVUS and iFR were performed. Heparin anticoagulation was used for this procedure. ACT was maintained at >250 seconds. A 6 [place] xb3 was engaged to the [place]. I [...] informed consent. she was brought to the laborer [employer] farm in a fasting state. The left wrist area was prepped and draped in usual fashion. Micropuncture technique was used for access in the radial artery. A 5-[place] x 11 cm sheath was placed. Verapamil was given through the sheath, and heparin was administered intravenously. A 5 [place] JR4 diagnostic catheter was advanced and this [...] catheter was then downsized to a 4 [place] JR4 diagnostic catheter however this also was not able to engage the right coronary artery. Catheter was exchanged to a JR4 diagnostic catheter which could not engage the left coronary artery. Catheter was exchanged to a 4 [place] JL 3.5 diagnostic catheter which eventually was able to engage the left coronary artery. Angiography was performed in multiple views. Catheter was exchanged over the wire to a 4 [place] 3DRC catheter. Multiple attempts were made to [...] least in part, completed using a voice impregnator and drier system. Every effort was made to ensure accuracy. However, inadvertent computerized impregnator and drier errors may be present. Lisa Pena DO Internal Medicine Resident, PGY-2 [facility] 11:18 AM 11/03/24 [1] Current Facility-Administered Medications: [...] patch, transdermal, q72h, Rosa Willoughby PA-C HYDROcodone-acetaminophen ([place]) 5-325 mg per tablet 1 tablet, 1 tablet, oral, q4h PRN, 1 tablet at 11/03/24 1011 OR HYDROcodone-acetaminophen ([place]) 5- 325 mg per tablet 2 tablet, [...] 10 mL, intravenous, q8h PRN, Debbie Luna, ANIMAL CONTROL LICENSING WORKER sucralfate (Carafate) tablet 1 g, 1 g, oral, Before meals & nightly, Rosa Willoughby PA-C, 1 g at 11/03/24 1013 topiramate (Topamax) tablet 100 mg, 100 mg, oral, BID, Rosa Willoughby PA-C, 100 mg at 11/03/24 1013 traMADol (Ultram) tablet 50 mg, 50 mg, oral, q6h PRN, Debbie Luna, ANIMAL CONTROL LICENSING WORKER, 50 mg at 11/03/24 0838 traZODone (Desyrel) tablet 100 mg, 100 mg, oral, Nightly, Rosa Willoughby PA-C trimethobenzamide (Tigan) injection 200 mg, 200 mg, intramuscular, q6h PRN, Debbie Luna ANIMAL CONTROL LICENSING WORKER, 200 mg at 11/03/24 0018 Cosigned by [...] and coronary intervention Katie Altamirano MD, MPH, [facility], [facility] Interventional Cardiology Pager Email: [email or web address] * Sid Cruz PA-C - 11/03/2024 8:12 AM EDT Images from the original note were not included. [facility] Surgical Intensive Care Unit Progress Note [...] thrive who presented as a transfer from [place]. She had an NSTEMI and underwent a [...] 84.8 kg (186 lb 15.2 oz) (11/03) [place]our[place] Coma Scale Score: 15 I/O last 3 [...] Value Ventricular Rate 74 Atrial Rate 74 MN Interval 138 QRS DURATION 84 QT Interval 454 QTC CALCULATION(BAZETT) 503 P [place] 54 R-[place] 41 T Wave [place] 77 Impression Normal sinus rhythm T abnormalities consider high lateral ischemia Mild ST elevation in V2 and V3 , consider acute septal injury Abnormal ECG Confirmed by Griffin Diaz (102) on 11/02/2024 10:58:13 PM Assessment TThe patient is a 34 y.o. female who presented with an NSTEMI, was taken to the laborer [employer] [place] x2 and hasa an expanding right groin [...] (placed patch every 72hours). Resume home PRN Vincennes 5-325 Q4H, PRN 650 mg Q8H -On [...] from the original note were not included. [facility] Medicine Daily Progress Note - 11/02/2024 1:27 PM; Room: [address] [place] [address] Admission: 10/30/2024 6:28 PM; Length of stay: 3 days THE HOSPITALIST TEAM PREFERS TO USE [employer] CHAT FOR NON-URGENT COMMUNICATION 7AM- 7PM. IF I DO NOT RESPOND WITHIN 20 MINUTES OR URGENT MATTERS, PLEASE CALL THROUGH THE CLERGY MEMBER. FROM 7PM-7AM, PLEASE PAGE [phone](COVR). 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 she was brought to the laborer [place] farm in a fasting state. The left wrist area was prepped and draped in usual fashion. Micropuncture technique was used for access in the radial artery. A 5-[place] x 11 cm sheath was placed. Verapamil was given through the sheath, and heparin was administered intravenously. A 5 [place] JR4 diagnostic catheter was advanced and this [...] catheter was then downsized to a 4 [place] JR4 diagnostic catheter however this also was not able to engage the right coronary artery. Catheter was exchanged to a JR4 diagnostic catheter which could not engage the left coronary artery. Catheter was exchanged to a 4 [place] JL 3.5 diagnostic catheter which eventually was able to engage the left coronary artery. Angiography was performed in multiple views. Catheter was exchanged over the wire to a 4 [place] 3DRC catheter. Multiple attempts were made to [...] Disposition: Home or Self Care () Signed yK Ritter MD [facility] Medicine 11/02/2024 1:27 PM * Therese Christiansen Head, [facility] - 11/02/2024 9:55 AM EDT Discharge Planning Patient is medically ready for discharge. SW received information from [facility] patient was being served through their [place] branch. SW sent referral to them through [facility]. * Jaydoncatalina DO Jean - 11/02/2024 9:08 AM EDT Cardiology Progress [...] who came as a direct admission from [facility] due to chest pain. Patient [...] -- 80 -- 100 % -- 11/01/24 171 133/74 -- -- 77 -- 100 % [...] Value Ventricular Rate 76 Atrial Rate 76 MN Interval 132 QRS DURATION 84 QT Interval 444 QTC CALCULATION(BAZETT) 499 P [place] 72 R-[place] 50 T Wave [place] 89 Impression Normal sinus rhythm T cahnges, consider anterior and high lateral ischemia Prolonged QT Abnormal ECG Confirmed by Griffin Diaz (102) on 11/01/2024 11:37:39 PM No results found for: CKTOTAL , CKMB , CKMBINDEX , TROPONINI Limited Echo (TTE) w/wo Limited Doppler, Color Flow, Imaging Agent, Strain, 3D, Bubble Study Result Date: 10/31/2024 1 1 [place] [facility] Heart Station [address] [place] [address] [phone] (fax) Echocardiogram-[facility] Name: JUAN KONG Study Date: 10/31/2024 11:16 AM B/P: 106 mmHg/67 mmHg HR: 70 bpm Date of : 1990 [facility] Age: 34 year(s) Patient [...] Procedure Staff Reading Group: [place] [facility] Color Mixer: DAVID Kearney, RDCS Ordering Physician: [place] RITTER [...] informed consent. she was brought to the laborer [place] farm in a fasting state. The left wrist area was prepped and draped in usual fashion. Micropuncture technique was used for access in the radial artery. A 5-[place] x 11 cm sheath was placed. Verapamil was given through the sheath, and heparin was administered intravenously. A 5 [place] JR4 diagnostic catheter was advanced and this [...] catheter was then downsized to a 4 [place] JR4 diagnostic catheter however this also was not able to engage the right coronary artery. Catheter was exchanged to a JR4 diagnostic catheter which could not engage the left coronary artery. Catheter was exchanged to a 4 [place] JL 3.5 diagnostic catheter which eventually was able to engage the left coronary artery. Angiography was performed in multiple views. Catheter was exchanged over the wire to a 4 [place] 3DRC catheter. Multiple attempts were made to [...] least in part, completed using a voice impregnator and drier system. Every effort was made to ensure accuracy. However, inadvertent computerized impregnator and drier errors may be present. Lisa Pena DO Internal Medicine Resident, PGY-2 [facility] 9:08 AM 11/02/24 [1] Current Facility-Administered Medications: acetaminophen (Tylenol) tablet 650 mg, 650 mg, oral, q6h PRN, Debbie Luna CNP Adult Cyclic 3-in-1 TPN, 2,300 mL, intravenous, Cyclic TPN, Kaye FamFort Cobb, RD, Last Rate: 79.8 mL/hrat 11/02/24 0802, [...] MD, 5,000 Units at 11/02/24 0556 HYDROcodone-acetaminophen ([place]) 5-325 mg per tablet 1 tablet, 1 [...] Units, 0-4 Units, subcutaneous, Nightly, Debbie Luna, BETH levothyroxine (Synthroid, Levoxyl) tablet 75 mcg, 75 mcg, oral, Daily before breakfast, Debbie Luna ANIMAL CONTROL LICENSING WORKER, 75 mcg at 11/02/24 0556 liothyronine (Cytomel) tablet 5 mcg, 5 mcg, oral, Daily, Debbie Pirkl, ANIMAL CONTROL LICENSING WORKER, 5 mcg at 11/02/24 0857 melatonin tablet 5 mg, 5 mg, oral, Nightly PRN, Debbie Pirkl, ANIMAL CONTROL LICENSING WORKER methocarbamol (Robaxin) tablet 750 mg, 750 mg, oral, 4x daily, Debbie Pirkl, ANIMAL CONTROL LICENSING WORKER, 750 mg at 11/02/24 0856 metoclopramide (Reglan) tablet 10 mg, 10 mg, oral, Daily PRN, Debbiejossie Mahmoodkl, ANIMAL CONTROL LICENSING WORKER metoprolol succinate XL (Toprol-XL) 24 hr split tablet 12.5 mg, 12.5 mg, oral, Daily, Ky Ritter MD, 12.5 mg at 11/02/24 0856 mirtazapine (Remeron) tablet 45 mg, 45 mg, oral, Nightly, Debbie Pirkl, ANIMAL CONTROL LICENSING WORKER, 45 mg at 11/01/24 2223 pantoprazole (ProtoNix) EC tablet 40 mg, 40 mg, oral, BID AC, Debbie Pirkl, ANIMAL CONTROL LICENSING WORKER, 40 mg at 11/02/24 0556 sodium chloride 0.9 % infusion, 100 mL/hr, intravenous, Continuous, Janet Soto MD, Stopped at 11/02/24 0841 Insert peripheral IV, , , Once AND Saline lock IV, , , Once AND sodium chloride flush 10 mL, 10 mL, intravenous, q8h PRN, Debbie Pirkl, ANIMAL CONTROL LICENSING WORKER sucralfate (Carafate) tablet 1 g, 1 g, oral, Before meals & nightly, Debbie Pirkl, ANIMAL CONTROL LICENSING WORKER, 1 g at 11/02/24 0556 topiramate (Topamax) tablet 100 mg, 100 mg, oral, BID, Debbie Pirkl, ANIMAL CONTROL LICENSING WORKER, 100 mg at 11/02/24 0856 traMADol (Ultram) tablet 50 mg, 50 mg, oral, q6h PRN, Debbie Pirkl, ANIMAL CONTROL LICENSING WORKER, 50 mg at 11/02/24 0859 traZODone (Desyrel) tablet 100 mg, 100 mg, oral, Nightly, Debbie Pirkl, ANIMAL CONTROL LICENSING WORKER, 100 mg at 11/01/242150 trimethobenzamide (Tigan) injection 200 mg, 200 mg, intramuscular, q6h PRN, Debbie Pirkl, ANIMAL CONTROL LICENSING WORKER, 200 mg at 11/01/242018 Cosigned by Katie Altamirano MD at 11/02/2024 [...] stent placement. Katie Altamirano MD, MPH, FACC, [facility], [facility] Interventional Cardiology Pager Email: [email or web address] * Therese Christiansen Head, PRECISION LENS GRINDER - 11/01/2024 10:45 AM EDT MIRYAM consult for Home TPN supplies upon discharge Patient will be discharged with continued need for home TPN services. Before admission service provided by [facility]. [facility]. * Ky Ritter MD - 11/01/2024 7:33 AM EDT Images from the original note were not included. / Hospital Medicine Daily Progress Note - 11/01/2024 7:33 AM; Room: [address] [place] [address] Admission: 10/30/2024 6:28 PM; Length of stay: 2 days THE HOSPITALIST TEAM PREFERS TO USE [employer] FOR NON-URGENT COMMUNICATION 7AM- 7PM. IF I DO NOT RESPOND WITHIN 20 MINUTES OR URGENT MATTERS, PLEASE CALL THROUGH THE CLERGY MEMBER. FROM 7PM-7AM, PLEASE PAGE [phone](COVR). Code Status: Full Code Barriers to Discharge: [...] & Plan NSTEMI (non-ST elevated myocardial infarction) ([facility]) -Trop 390 at OSH, now downward trending [...] complication, without long-term current use of insulin ([facility]) - Patient currently taking metformin at home [...] LDL 73 10/31/2024 No results found for: VNRESHFF66 , IRON , TIBC , C3 , [...] informed consent. she was brought to the laborer [place] farm in a fasting state. The left wrist area was prepped and draped in usual fashion. Micropuncture technique was used for access in the radial artery. A 5-[place] x 11 cm sheath was placed. Verapamil was given through the sheath, and heparin was administered intravenously. A 5 [place] JR4 diagnostic catheter was advanced and this [...] catheter was then downsized to a 4 [place] JR4 diagnostic catheter however this also was not able to engage the right coronary artery. Catheter was exchanged to a JR4 diagnostic catheter which could not engage the left coronary artery. Catheter was exchanged to a 4 [place] JL 3.5 diagnostic catheter which eventually was able to engage the left coronary artery. Angiography was performed in multiple views. Catheter was exchanged over the wire to a 4 [place] 3DRC catheter. Multiple attempts were made to [...] 1 1 [place] [facility] Heart Station [address] [place] [address] [phone] (fax) Echocardiogram-[facility] Name: JUAN KONG Study Date: 10/31/2024 11:16 AM B/P: 106 mmHg/67 mmHg HR: 70 bpm Date of : 1990 Location: [facility] Height: 66 in. Age: 34 year(s) [...] Procedure Staff Reading Group: [place] [facility] Color Mixer: DAVID Kearney, RDCS Ordering Physician: [place] RITTER Wall Motion Scores -1 - hyperkinesia, 0 - not evaluated, 1 - normal, 2 - hypokinesia, 3 - akinesia, 4 - dyskinesia Discharge Planning Expected Discharge Disposition: Home or Self Care (01) Signed Ky Ritter MD [facility] Medicine 11/01/2024 7:33 AM * Kaye Craig [...] POCGLU 82 10/31/2024 115 BUN 5 (L) 10/31/2024 06 CREATININE 0.60 10/31/2024 06 NA 140 10/31/2024 06 K 4.0 10/31/2024626 PHOS 4.4 10/30/2024 1911 MG 1.8 (L) 10/31/2024626 HGBA1C 4.5 10/31/2024 06 HGB 9.4 (L) 10/31/2024626 WBC 3.65 (L) 10/31/2024626 CHOL 116 (L) 10/31/2024626 HDL 43 10/31/2024 06 Mar CGM read 67 vs finger stick 82 @ 1155 -> D50 25 g given @ 1228 2/ NPO -> Mar read 126 ~15 minutes later. 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 No routine or PRN bowel [...] PO diet regular as tolerated. Intakes variable. [place], small meals. ONS. Dextrose 200 g AA [...] ideal body weight (59.3 kg) Calorie needs: 9564-8297 kcals/day based on 25-30 kcal/kg Protein needs: [...] of Nutrition and Dietetics (AND) and the [place] Society of Enteral and Parenteral Nutrition (ASPEN). [...] To reach the Clinical Dietitian, please utilize [employer] chat Wednesday-Wednesday from 8AM-4PM or call extension [phone]. For weekends (Wednesday-Wednesday) and hols, the Clinical Dietitian can be reached via pager [phone]) from 9AM-3PM. The Clinical Nutrition Department is unable to respond to [employer] chat messages on Sundays and s. [1] Allergies Allergen Reactions Codeine Nausea And Vomiting Nsaids (Non-Steroidal Anti-Inflammatory Drug) GI intolerance Adhesive Rash * Jami Bridges RN - 10/31/2024 12:28 PM EDT [facility] [employer] called to room as patient states her [...] Progress Note - 10/31/2024 7:18 AM; Room: [facility]318[facility] Admission: 10/30/2024 6:28 PM; Length of stay: 1 days THE HOSPITALIST TEAM PREFERS TO USE [employer] FOR NON-URGENT COMMUNICATION 7AM- 7PM. IF I DO NOT RESPOND WITHIN 20 MINUTES OR URGENT MATTERS, PLEASE CALL THROUGH THE CLERGY MEMBER. FROM 7PM-7AM, PLEASE PAGE [phone](COVR). Code Status: Full Code Barriers to Discharge: [...] from last 7 days Lab Units 10/30/24 2112 POCT GLUCOSE mg/dL 97 Historical Values: (Includes values prior to this admission) Lab Results Component Value Date TSH 3.46 10/30/2024 No results found for: NDVCQBBA07 , IRON , TIBC , C3 , C4 , MISAEL , CANCA , ASO , PSA , CEA , CA125 , CA199 , AFP , CA153 Imaging ECG 12 lead Sinus rhythm with sinus arrhythmia with occasional Premature ventricular complexes Prolonged QT Abnormal ECG No previous ECGs available Discharge Planning Expected Discharge Disposition: Home or Self Care () Signed Ky Ritter MD [facility] Medicine 10/31/2024 7:18 AM documented in this encounter H&P Notes * Janet Soto MD - 11/02/2024 1:30 PM EDT H&P reviewed. The patient was examined and there are no changes to the H&P. Procedure reviewed with patient, risks including stroke, HI, discussed. Ms Kong is agreeable to coronary [...] who came as a direct admission from [facility] due to chest pain. Patient [...] 1 patch, transdermal, Every 72 hours HYDROcodone-acetaminophen ([place]) 5-325 mg tablet 2 tablets, oral, Every [...] -- -- 78 16 100 % -- 10/31/24 184 -- -- -- -- -- 97 % [...] Value Ventricular Rate 76 Atrial Rate 76 MN Interval 132 QRS DURATION 84 QT Interval 444 QTC CALCULATION(BAZETT) 499 P [place] 72 R-[place] 50 T Wave [place] 89 Impression Normal sinus rhythm Prolonged QT Abnormal ECG When compared with ECG of 31-OCT-2024 08:43, No significant change was found No results found for: CKTOTAL , CKMB , CKMBINDEX , TROPONINI Limited Echo (TTE) w/wo Limited Doppler, Color Flow, Imaging Agent, Strain, 3D, Bubble Study Result Date: 10/31/2024 1 1 [facility] Heart Station [address] [place] [address] [phone] (fax) Echocardiogram-[facility] Name: JUAN KONG Study Date: 10/31/2024 11:16 AM B/P: 106 mmHg/67 mmHg HR: 70 bpm Date of : 1990 [facility] Age: 34 year(s) Patient [...] Procedure Staff Reading Group: [facility] Color Mixer: DAVID Kearney, RDCS Ordering Physician: KY RITTER [...] on TPN presents a direct admission from [facility] with chief complaint of chest [...] infiltrated over the right femoral artery. A 5-[place] Terumo sheath was placed in right femoral [...] was maintained at >250 seconds. A 5 [place] Cordis XB 3.0 guide was engaged to the left main. I decided to proceed with IVUS. I then advanced a Runthrough wire to the distal left anterior descending. Next, I advanced a [employer] IVUS catheter. IVUS imaging was performed and [...] 31-OCT-2024 08:43, No significant change was found Echocardiogram-[facility] Name: JUAN KONG Study Date: 10/31/2024 11:16 AM B/P: 106 mmHg/67 mmHg HR: 70 bpm Date of : 1990 Location: [facility] Height: 66 in. Age: 34 year(s) [...] least in part, completed using a voice impregnator and drier system. Every effort was made to ensure accuracy. However, inadvertent computerized impregnator and drier errors may be present. Lisa Pena DO Internal Medicine Resident, PGY-2 [facility] 4:26 PM 11/01/24 Maria D Bailey MD PGY-5 Roll Tester [facility] Pager: [phone] [1] No family history on file. [2] [...] the morning. ergocalciferol (Vitamin D-2) 1.25 MG (72471 Units) capsule Take 50,000 Units by mouth 1 (one) time per week. escitalopram (Lexapro) 20 mg tablet Take 20 mg by mouth in the morning. fentaNYL (Duragesic) 12 mcg/hr Place 1 patch on the skin every 3rd (third) day. Takes 12 mcg and 25mcg together every 3 days fentaNYL (Duragesic) 25 mcg/hr Place 1 patch on the skin every 3rd (third) day. HYDROcodone-acetaminophen ([place]) 5-325 mg tablet Take 2 tablets by [...] Procedure reviewed with patient, risks including stroke, HI, , bleeding and infection complications discussed.Ms. Kong [...] who came as a direct admission from [facility] due to chest pain. Patient [...] 1 patch, transdermal, Every 72 hours HYDROcodone-acetaminophen ([place]) 5-325 mg tablet 2 tablets, oral, Every [...] Value Ventricular Rate 83 Atrial Rate 83 MN Interval 144 QRS DURATION 88 QT Interval 422 QTC CALCULATION(BAZETT) 495 P [place] 62 R-[place] 19 T Wave [place] 56 Impression Sinus rhythm with sinus arrhythmia [...] QT Abnormal ECG No previous ECGs available Echocardiogram-[facility] Name: JUAN KONG Study Date: 10/31/2024 11:16 AM B/P: 106 mmHg/67 mmHg HR: 70 bpm Date of : 1990 Location: [facility] Height: 66 in. Age: 34 year(s) Patient Room : 318 Weight: 181 lb. Gender: Female Patient [...] least in part, completed using a voice impregnator and drier system. Every effort was made to ensure accuracy. However, inadvertent computerized impregnator and drier errors may be present. Lisa Pena DO Internal Medicine Resident, PGY-2 [facility] 7:50 AM 10/31/24 [1] No family history [...] the morning. ergocalciferol (Vitamin D-2) 1.25 MG (70429 Units) capsule Take 50,000 Units by mouth 1 (one) time per week. escitalopram (Lexapro) 20 mg tablet Take 20 mg by mouth in the morning. fentaNYL (Duragesic) 12 mcg/hr Place 1 patch on the skin every 3rd (third) day. Takes 12 mcg and 25mcg together every 3 days fentaNYL (Duragesic) 25 mcg/hr Place 1 patch on the skin every 3rd (third) day. HYDROcodone-acetaminophen ([place]) 5-325 mg tablet Take 2 tablets by [...] Procedure reviewed with patient, risks of stroke, HI, discussed. Ms Kong is agreeable to proceed [...] who came as a direct admission from [facility] due to chest pain. Patient [...] 1 patch, transdermal, Every 72 hours HYDROcodone-acetaminophen ([place]) 5-325 mg tablet 2 tablets, oral, Every [...] Value Ventricular Rate 83 Atrial Rate 83 MN Interval 144 QRS DURATION 88 QT Interval 422 QTC CALCULATION(BAZETT) 495 P [place] 62 R-[place] 19 T Wave [place] 56 Impression Sinus rhythm with sinus arrhythmia [...] QT Abnormal ECG No previous ECGs available [facility]ocardiogram[facility] Name: JUAN KONG Study Date: 10/31/2024 11:16 AM B/P: 106 mmHg/67 mmHg HR: 70 bpm Date of : 1990 Location: [facility] Height: 66 in. Age: 34 year(s) [...] least in part, completed using a voice impregnator and drier system. Every effort was made to ensure accuracy. However, inadvertent computerized impregnator and drier errors may be present. Lisa Pena DO Internal Medicine Resident, PGY-2 [facility] 7:50 AM 10/31/24 [1] No family history [...] the morning. ergocalciferol (Vitamin D-2) 1.25 MG (83555 Units) capsule Take 50,000 Units by mouth 1 (one) time per week. escitalopram (Lexapro) 20 mg tablet Take 20 mg by mouth in the morning. fentaNYL (Duragesic) 12 mcg/hr Place 1 patch on the skin every 3rd (third) day. Takes 12 mcg and 25mcg together every 3 days fentaNYL (Duragesic) 25 mcg/hr Place 1 patch on the skin every 3rd (third) day. HYDROcodone-acetaminophen ([place]) 5-325 mg tablet Take 2 tablets by [...] PM THE HOSPITALIST TEAM PREFERS TO USE [employer] FOR NON-URGENT COMMUNICATION 7AM- 7PM. IF I DO NOT RESPOND WITHIN 20 MINUTES OR URGENT MATTERS, PLEASE CALL THROUGH THE CLERGY MEMBER. FROM 7PM-7AM, PLEASE PAGE [phone](COVR). Chief Complaint Direct admission from [facility] with CP History of Present Illness Juan [...] on TPN presents a direct admission from [facility] with chief complaint of chest [...] is a 7 out of 10. At [facility], x-ray was completed showing mild fluid overload. Troponin was found to be elevated at 390. Cardiology team was contacted and they recommended transfer for higher level of care. She was also started on a heparin infusion at that time. Upon arrival to [facility], repeat labs were completed showing troponin 337, [...] complication, without long-term current use of insulin ([facility]) - Patient currently taking metformin at home, [...] Physical Activity: Insufficiently Active (06/30/2023) Received from [facility] Exercise Vital Sign Days of Exercise per Week: 3 days Minutes of Exercise per Session: 10 min Stress: Stress Concern Present (06/30/2023) Received from [facility] [employer] - Occupational Stress Questionnaire Feeling of Stress : Rather much Social Connections: Moderately Integrated (06/30/2023) Received from [facility] Social Connection and Isolation Panel [NHANES] Frequency of Communication with Friends and Family: Twice a week Frequency of Social Gatherings with Friends and Family: Twice a week Attends Yarsani Services: More than 4 times per year [...] Procedure Abnormality Status --------- ------ CBC auto differential[[id number]] Abnormal Final result Please view results for these tests on the individual orders. HIGH SENSITIVITY TROPONIN I ANTI-XA (HEPARIN LEVEL) POCT GLUCOSE METER Imaging ECG 12 lead Sinus rhythm with sinus arrhythmia with occasional Premature ventricular complexes Prolonged QT Abnormal ECG No previous ECGs available [facility]igned [facility] 10/30/2024 8:57 PM [1] No past [...] the morning. ergocalciferol (Vitamin D-2) 1.25 MG (43550 Units) capsule Take 50,000 Units by mouth 1 (one) time per week. escitalopram (Lexapro) 20 mg tablet Take 20 mg by mouth in the morning. fentaNYL (Duragesic) 12 mcg/hr Place 1 patch on the skin every 3rd (third) day. Takes 12 mcg and 25mcg together every 3 days fentaNYL (Duragesic) 25 mcg/hr Place 1 patch on the skin every 3rd (third) day. HYDROcodone-acetaminophen ([place]) 5-325 mg tablet Take 2 tablets by [...] from the original note were not included. [facility] Department of Urology CONSULTATION Reason for [...] to thrive. Patient was a transfer from [facility] due to an NSTEMI. Underwent [...] issues with retention. Was previously seen in [facility]-good specialist for [...] Physical Activity: Insufficiently Active (06/30/2023) Received from [facility] Exercise Vital Sign Days of Exercise per Week: 3 days Minutes of Exercise per Session: 10 min Stress: Stress Concern Present (06/30/2023) Received from [facility] [employer] - Occupational Stress Questionnaire Feeling of Stress : Rather much Social Connections: Moderately Integrated (06/30/2023) Received from [facility] Social Connection and Isolation Panel [NHANES] Frequency of Communication with Friends and Family: Twice a week Frequency of Social Gatherings with Friends and Family: Twice a week Attends Yarsani Services: More than 4 times per year [...] infiltrated over the right femoral artery. A 6-[place] sheath was placed in right femoral artery. Coronary angiography was performed with a JL4 and then repeated after IC nitroglycerin 50 mcg x 2. At this time, it was apparent that the LAD had a moderate stenosis and IVUS and iFR were performed. Heparin anticoagulation was used for this procedure. ACT was maintained at >250 seconds. A 6 [place] xb3 was engaged to the [place]. I [...] intima evident Cardiac catheterization PROCEDURE PHYSICIAN: Tino Gilmoer MD . Indications: Juan Kong is a [...] informed consent. she was brought to the lab[facility] in a fasting state. The left wrist area was prepped and draped in usual fashion. Micropuncture technique was used for access in the radial artery. A 5-[place] x 11 cm sheath was placed. Verapamil was given through the sheath, and heparin was administered intravenously. A 5 [place] JR4 diagnostic catheter was advanced and this [...] catheter was then downsized to a 4 [place] JR4 diagnostic catheter however this also was not able to engage the right coronary artery. Catheter was exchanged to a JR4 diagnostic catheter which could not engage the left coronary artery. Catheter was exchanged to a 4 [place] JL 3.5 diagnostic catheter which eventually was able to engage the left coronary artery. Angiography was performed in multiple views. Catheter was exchanged over the wire to a 4 [place] 3DRC catheter. Multiple attempts were made to [...] mg, 650 mg, oral, q8h PRN, Sid Cruz, PA-C Adult Cyclic 3-in-1 TPN, 2,300 mL, intravenous, Cyclic TPN, Kaye [place], RD albuterol 90 mcg/actuation inhaler 2 puff, [...] PA-C, 1 patch at 11/03/24 1128 HYDROcodone-acetaminophen ([place]) 5-325 mg per tablet 1 tablet, 1 tablet, oral, q4h PRN, 1 tablet at 11/03/24 1011 OR HYDROcodone-acetaminophen ([place]) 5- 325 mg per tablet 2 tablet, [...] 40 mg, 40 mg, oral, BID AC, HENNY Hendrickson-Elroy, 40 mg at 11/03/24 0607 potassium chloride [...] 10 mEq, intravenous, q1h PRN, HENNY Hendrickson-C prochlorperazine (Compazine) injection 10 mg, 10 mg, intravenous, Once, Janet Soto MD prochlorperazine (Compazine) injection 5 mg, 5 mg, intravenous, Once PRN, Robin Luz MD sennosides-docusate sodium (Kadie-Colace) 8.6-50 mg per tablet 1 tablet, 1 tablet, oral, Nightly PRN, Rosa Wilolughby PA-C sod phos di, mono-K phos mono [...] 10 mL, intravenous, q8h PRN, Debbie Pirkl, ANIMAL CONTROL LICENSING WORKER sucralfate (Carafate) tablet 1 g, 1 g, oral, Before meals & nightly, Rosa Willoughby PA-C, 1 g at 11/03/24 1013 topiramate (Topamax) tablet 100 mg, 100 mg, oral, BID, Rosa Willoughby PA-C, 100 mg at 11/03/24 1013 traMADol (Ultram) tablet 50 mg, 50 mg, oral, q6h PRN, Debbie Pirkl, ANIMAL CONTROL LICENSING WORKER, 50 mg at 11/03/24 0838 traZODone (Desyrel) tablet 100 mg, 100 mg, oral, Nightly, Rosa Willoughby PA-C trimethobenzamide (Tigan) injection 200 mg, 200 mg, intramuscular, q6h PRN, Debbie Pirkl, ANIMAL CONTROL LICENSING WORKER, 200 mg at 11/03/24 0018 [5] No family history on file. Cosigned by Nic Aviles MD at 11/10/2024 3:02 PM EDT * Miles Ramos MD - 11/02/2024 7:54 PM EDTAssociated Order(s): IP CONSULT TO VASCULAR SURGERY Images from the original note were not included. [facility] Vascular/Endovascular Surgery Property Management Specialist Complaint R groin hematoma History and Present [...] Physical Activity: Insufficiently Active (06/30/2023) Received from [facility] Exercise Vital Sign Days of Exercise per Week: 3 days Minutes of Exercise per Session: 10 min Stress: Stress Concern Present (06/30/2023) Received from [facility] [employer] [place] [employer] - Occupational Stress Questionnaire Feeling of Stress : Rather much Social Connections: Moderately Integrated (06/30/2023) Received from [facility] Social Connection and Isolation Panel [NHANES] Frequency of Communication with Friends and Family: Twice a week Frequency of Social Gatherings with Friends and Family: Twice a week Attends Yarsani Services: More than 4 times per year [...] presenting illness. Objective Vital signs: Vitals: 11/02/24 19211/02/24 19211/02/24 19311/02/241944 BP: 114/59 (!) 122/95 93/57 [...] infiltrated over the right femoral artery. A 6-[place] sheath was placed in right femoral artery. Coronary angiography was performed with a JL4 and then repeated after IC nitroglycerin 50 mcg x 2. At this time, it was apparent that the LAD had a moderate stenosis and IVUS and iFR were performed. Heparin anticoagulation was used for this procedure. ACT was maintained at >250 seconds. A 6 [place] xb3 was engaged to the [place]. I [...] informed consent. she was brought to the [facility] in a fasting state. The left wrist area was prepped and draped in usual fashion. Micropuncture technique was used for access in the radial artery. A 5-[place] x 11 cm sheath was placed. Verapamil was given through the sheath, and heparin was administered intravenously. A 5 [place] JR4 diagnostic catheter was advanced and this [...] catheter was then downsized to a 4 [place] JR4 diagnostic catheter however this also was not able to engage the right coronary artery. Catheter was exchanged to a JR4 diagnostic catheter which could not engage the left coronary artery. Catheter was exchanged to a 4 [place] JL 3.5 diagnostic catheter which eventually was able to engage the left coronary artery. Angiography was performed in multiple views. Catheter was exchanged over the wire to a 4 [place] 3DRC catheter. Multiple attempts were made to [...] the morning. ergocalciferol (Vitamin D-2) 1.25 MG (82335 Units) capsule Take 50,000 Units by mouth 1 (one) time per week. escitalopram (Lexapro) 20 mg tablet Take 20 mg by mouth in the morning. fentaNYL (Duragesic) 12 mcg/hr Place 1 patch on the skin every 3rd (third) day. Takes 12 mcg and 25mcg together every 3 days fentaNYL (Duragesic) 25 mcg/hr Place 1 patch on the skin every 3rd (third) day. HYDROcodone-acetaminophen ([place]) 5-325 mg tablet Take 2 tablets by [...] who came as a direct admission from [facility] due to chest pain. Patient [...] 1 patch, transdermal, Every 72 hours HYDROcodone-acetaminophen ([place]) 5-325 mg tablet 2 tablets, oral, Every [...] -- 88 21 96 % -- 10/31/24 1955 110/61 -- -- 70 12 98 % [...] Value Ventricular Rate 76 Atrial Rate 76 MN Interval 132 QRS DURATION 84 QT Interval 444 QTC CALCULATION(BAZETT) 499 P [place] 72 R-[place] 50 T Wave [place] 89 Impression Normal sinus rhythm Prolonged QT Abnormal ECG When compared with ECG of 31-OCT-2024 08:43, No significant change was found No results found for: CKTOTAL , CKMB , CKMBINDEX , TROPONINI Limited Echo (TTE) w/wo Limited Doppler, Color Flow, Imaging Agent, Strain, 3D, Bubble Study Result Date: 10/31/2024 1 1 [facility] Heart Station [address] [place] [address] [phone] (fax) Echocardiogram-[facility] Name: JUAN KONG Study Date: 10/31/2024 11:16 AM B/P: 106 mmHg/67 mmHg HR: 70 bpm Date of : 1990 [facility] Age: 34 year(s) Patient [...] Procedure Staff Reading Group: [facility] Color Mixer: DAVID Kearney, RDCS Ordering Physician: KY RITTER [...] on TPN presents a direct admission from [facility] with chief complaint of chest [...] infiltrated over the right femoral artery. A 5-[place] Terumo sheath was placed in right femoral [...] was maintained at >250 seconds. A 5 [place] Cordis XB 3.0 guide was engaged to the left main. I decided to proceed with IVUS. I then advanced a Runthrough wire to the distal left anterior descending. Next, I advanced a [employer] IVUS catheter. IVUS imaging was performed and [...] 31-OCT-2024 08:43, No significant change was found E[facility]ocardiogram[facility] Name: JUAN KONG Study Date: 10/31/2024 11:16 AM B/P: 106 mmHg/67 mmHg HR: 70 bpm Date of : 1990 Location: [facility] Height: 66 in. Age: 34 year(s) [...] least in part, completed using a voice impregnator and drier system. Every effort was made to ensure accuracy. However, inadvertent computerized impregnator and drier errors may be present. Lisa Pena DO Internal Medicine Resident, PGY-2 [facility] 4:26 PM 11/01/24 Maria D Bailey MD PGY-5 Roll Tester [facility] Pager: [phone] [1] No family history on file. [2] [...] the morning. ergocalciferol (Vitamin D-2) 1.25 MG (13614 Units) capsule Take 50,000 Units by mouth 1 (one) time per week. escitalopram (Lexapro) 20 mg tablet Take 20 mg by mouth in the morning. fentaNYL (Duragesic) 12 mcg/hr Place 1 patch on the skin every 3rd (third) day. Takes 12 mcg and 25mcg together every 3 days fentaNYL (Duragesic) 25 mcg/hr Place 1 patch on the skin every 3rd (third) day. HYDROcodone-acetaminophen ([place]) 5-325 mg tablet Take 2 tablets by [...] me. Additional Comments: Katie Altamirano MD, MPH, [facility], [facility] Interventional Cardiology Pager Email: [email or web address] * Lisa Pena, - 10/31/2024 7:49 AM EDTAssociated Order(s): IP [...] who came as a direct admission from [facility] due to chest pain. Patient [...] 1 patch, transdermal, Every 72 hours HYDROcodone-acetaminophen ([place]) 5-325 mg tablet 2 tablets, oral, Every [...] Value Ventricular Rate 83 Atrial Rate 83 MN Interval 144 QRS DURATION 88 QT Interval 422 QTC CALCULATION(BAZETT) 495 P [place] 62 R-[place] 19 T Wave [place] 56 Impression Sinus rhythm with sinus arrhythmia [...] QT Abnormal ECG No previous ECGs available E[facility]ocardiogram[facility] Name: JUAN KONG Study Date: 10/31/2024 11:16 AM B/P: 106 mmHg/67 mmHg HR: 70 bpm Date of : 1990 Location: [facility] Height: 66 in. Age: 34 year(s) [...] least in part, completed using a voice impregnator and drier system. Every effort was made to ensure accuracy. However, inadvertent computerized impregnator and drier errors may be present. Lisa Pena DO Internal Medicine Resident, PGY-2 [facility] 7:50 AM 10/31/24 [1] No family history [...] the morning. ergocalciferol (Vitamin D-2) 1.25 MG (43355 Units) capsule Take 50,000 Units by mouth 1 (one) time per week. escitalopram (Lexapro) 20 mg tablet Take 20 mg by mouth in the morning. fentaNYL (Duragesic) 12 mcg/hr Place 1 patch on the skin every 3rd (third) day. Takes 12 mcg and 25mcg together every 3 days fentaNYL (Duragesic) 25 mcg/hr Place 1 patch on the skin every 3rd (third) day. HYDROcodone-acetaminophen ([place]) 5-325 mg tablet Take 2 tablets by [...] presentation would be considered a Type I HI/NSTEMI. This may or may not have been related to coronary vasospasm caused by the IV Compazine. Continue IV heparin drip. Invasive coronary angiography is indicated; will adjust pharmacological therapy depending on results. Treatment cardiac morbidities as clinically appropriate Katie Altamirano MD, MPH, [facility], [facility] Interventional Cardiology Pager Email: [email or web address] documented in this encounter Nursing Notes [...] Deepika Matos RN Rapid Response Team Nurse [phone] 11/07/2024 4:54 PM * Suleiman Borges RN [...] Pulse: [phone] Resp: 13 13 Temp: 36.1 ??C (97 ??F) [...] voiced no concerns at this time. The fiction and nonfiction prose writer urged theprimary RN to call the rapid team if any concerns arise overnight. Suleiman Borges RN Rapid Response Team Nurse [phone] 11/07/2024 12:52 AM * Fern Snider RN [...] given to DEE High from Gely RN. label fuser tender RN presented site to bedside RN. Bedside RN visualized site and palpated site to ensure there was no hematoma or bruising, and femoral site appears flat. Both bedside RN and laborer [employer] RN mutually agreed that the site presents normal. label fuser tender RN and bedside RN either palpated or used a doppler to assess pulses on the patient. * Alyce Ortega RN - 11/02/2024 8:30 PM EDT Pt brought to PRE-OP/pacu from [facility] [employer]. Dr Whitlock holding pressure on right groin site. Pt on monitor. Report obtained. * Nathalie Hurd RN - 11/02/2024 8:13 PM EDT Report given to Thao MACHINE OPERATOR HOP WORKER, RN from [facility] Any medications or [...] given to DEE Gomez from DEE [place]. label fuser tender RN presented site to bedside RN. Bedside RN visualized site and palpated site to ensure there was no hematoma or bruising, and femoral site appears flat. Both bedside RN and [employer] [employer] RN mutually agreed that the site presents normal. label fuser tender RN and bedside RN either palpated or [...] Emery RN - 11/07/2024 1:32 PM EDT [facility] talked with patient about discharge planning, [facility] did offer [facility]HC to patient for long-term due to patient discharging with [facility]. Patient stated she has had [facility] in the past but her insurance is no longer accepting by them. Patient was agreeable to a mass referral to be set out to see who is accepting and who takes her insurance. [facility] notified SW. * Care Plan - Patricia [...] level Outcome: Adequate for Discharge Flowsheets (Taken 11/07/2024 0721) Verbalizes/displays adequate comfort level or baseline comfort [...] dizziness when up yesterday. Move out to [place]. Anticipate discharge home. cb Diet: Dietary Orders (From admission, onward) Start Ordered 11/04/24 0855 Special Kitchen Request Once Comments: Please send oatmeal with brown sugar, a bagel with cream cheese, and coffee with cream and sugar. Thank you! 11/04/24 0854 11/03/24 1335 Special Kitchen Request Once Comments: Please send Old Fashioned Hot Chauncey [place] entree, with a side of green beans; [...] CABG,Stroke, (2gNA, low fat, low cholesterol) 11/02/24 22311/01/24 1519 Dietary nutrition supplements Lunch; Gelatein; Spink; 4 oz; Oral Until discontinued Comments: When diet advances Question Answer Comment Deliver with Lunch Select supplement: Gelatein Flavor Spink Strength: 4 oz Route Oral 11/01/24 15111/01/24 [...] for Consult? Resume primary Level of Consultation Spout Liner Helper assumes full responsibility 11/06/24 0844 Therapy Orders (From admission, onward) Start Ordered 11/06/24 0829 PT eval and treat Until therapy completed Question: Reason for PT? Answer: eval and treat 11/06/24 0828 11/06/24 08 OT eval and treat Until therapy completed [...] and behaviors that affect risk of falls [place] fall precautions as indicated by assessment Educate [...] Practitioner order if needed Discuss catheterization for alf situations as appropriate Goal: Urinary catheter remains [...] sites i.e., indwelling lines, tubes and drains [place] appropriate cooling/warming therapies per order Administer medications [...] and behaviors that affect risk of falls [place] fall precautions as indicated by assessment Educate [...] alleviate retention as needed Discuss catheterization for alf situations as appropriate Goal: Urinary catheter remains [...] secretions for changes in amount and color [place] appropriate cooling/warming therapies per order Administer medications [...] sites i.e., indwelling lines, tubes and drains [place] appropriate cooling/warming therapies per order Instruct and [...] was noted and manual pressure held by [employer] [employer] DEE Stubbs over the hematoma site as well. Dr Collins informed and advised to continue holding pressure. At around 7 pm the hematoma was noted to be expanding. Dr Gilmore, the ammunition components inspector interventionalist was at bedside, evaluated the patient [...] was emergently taken to the OR with [employer] [employer] team, and surgery at bedside. Patients family (mom and ) were updated on the situation. Patient will be admitted to SICU post-operatively. Janet Soto MD Roll Tester, PGY-4 [facility] 11/02/24 8:56 PM Cosigned by Tino [...] large hematoma. When I arrived to the Senior Technical Support Engineer I assessed the hematoma to be significant [...] PSEUDOANEURYSM (R) Operative Note Date: 11/02/2024 Location: [facility] OR Name: Juan Kong, : 1990, [...] 11/02/242135 Status To bulb suction 11/02/242135 Staff: Road Builder: Elicia Small RN; Dimitri Hearn RN Scrub Person: Olga Ruiz, KADIE; Celeste Burroughs CST Indications: Juan Kong is [...] 6-0 Prolene sutures were placed in a olnpto-[id number] manner, across the femoral artery luminal defects to obtain hemostasis, taking careful attention not to backwall obstruct the femoral artery. Good hemostasis was witnessed and the incision was packed with thrombin Gelfoam. Next attention was towards the subcutaneous empty space formed by the previous hematoma. The empty space and the wound was thoroughly irrigated using normal saline. A 10 [place] flat GONSALO drain was placed at the [...] year old female who was transferred to [facility] from [place] on 10/30 for chest pain. PMH is [...] which brought her to the hospital. At [place], chest xray showed mild fluid overload and [...] evacuation procedure. She is on fentanyl patches, [place], and will receive a one time dose [...] Date/Time: 11/02/241740 Procedure: Coronary angiography (Bilateral) Location: [facility] / [facility] (Cath) Providers: Wali Collins MD [...] attending. Additional Equipment Requests Janet Soto MD Roll Tester, PGY-4 [facility] 11/02/24 1:31 PM Cosigned by Wali Collins MD at 11/02/2024 3:13 PM EDT * Assessment & Plan Note - Ky Ritter MD - 11/02/2024 1:29 PM EDT Associated Problem(s): NSTEMI (non-ST elevated myocardial infarction) ([facility]) -Trop 390 at OSH, now downward trending [...] pain today patient brought urgently back to Senior Technical Support Engineer * Assessment & Plan Note - Ky [...] pain today patient brought urgently back to Senior Technical Support Engineer * Assessment & Plan Note - Ky Ritter MD - 11/02/2024 1:29 PM EDT Associated Problem(s): Prolonged Q-T interval on ECG -QT mildly prolonged; read as 492 ms however calculation revealing 429 -Okay with reglan * Assessment & Plan Note - Ky Ritter MD - 11/02/2024 1:29 PM EDT Associated Problem(s): Type 2 diabetes mellitus without complication, without long-term current useof insulin ([facility]) - Patient currently taking metformin at home -Continue ISS ACHS * Assessment & Plan Note - Ky Ritter MD - 11/02/2024 1:29 PM EDT Associated Problem(s): Protein calorie malnutrition -Patient currently requiring TPN -Port to her right chest -Clinical dietitian consult * Assessment & Plan Note - Ky Rittre MD - 11/02/2024 1:29 PM EDT Associated [...] Status Interested Does the patient have a director of casework department assigned to them through their insurance? Yes [...] with benadry and Tigan. Pain controlled with [place] and tramadol. * Care Plan - Patricia [...] Date/Time: 11/01/24 1300 Procedure: Coronary angiography Location: [facility] / [facility] (Cath) Providers: Mitchell Agustin MD [...] attending. Additional Equipment Requests Janet Soto MD Roll Tester, PGY-4 [facility] 11/01/24 12:12 PM Cosigned by Mitchell Agustin MD at 11/01/2024 12:42 PM EDT * Assessment & Plan Note - Ky Ritter MD - 11/01/2024 11:57 AM EDT Associated Problem(s): NSTEMI (non-ST elevated myocardial infarction) ([facility]) -Trop 390 at OSH, now downward trending [...] without complication, without long-term current useof insulin ([facility]) - Patient currently taking metformin at home [...] Date/Time: 10/31/24 1330 Procedure: Coronary angiography Location: [facility] / [facility] (Cath) Providers: Tino Gilmore MD [...] without complication, without long-term current useof insulin ([facility]) - Patient currently taking metformin at home [...] Associated Problem(s): NSTEMI (non-ST elevated myocardial infarction) ([facility]) -Trop 390 at OSH, now downward trending [...] without complication, without long-term current useof insulin ([facility]) - Patient currently taking metformin at home, [...] Info) Description 11/20/2024 2:30 PM EDT Follow-Up [facility] Vascular and Endovascular Surgery [address] [place] [id number] Delphine Du NP [address] [place] [address] [place] [address] 11/28/2024 11:00 AM EDT Follow-Up [facility] Cardiology [address] [place] [place] [address] Wali Collins MD [address] [place] [phone] 12/04/2024 10:00 AM EDT Office Visit [facility] at [facility] [address] [place] [address] Katie Altamirano MD [address] [place] [address] documented as of this encounter [...] UNSOLICITED RESULTS Routine 11/06/2024 12:19 PM EDT [facility] LOWER EXTREMITY PSEUDOANEURYSM DUPLEX RIGHT Routine 11/06/2024 [...] - 105 mg/dL 11/07/2024 4:12 PM EDT [facility] ([facility]) Comment:[email or web address] Blood Capillary blood specimen / Unknown 11/07/2024 4:00 PM EDT 11/07/2024 4:12 PM EDT [facility] ([facility]) - 11/07/2024 4:12 PM EDT Waived Testing in the ED is performed under the ED CLIA certificate #[id number]. us Mauricio Garcia MD LAB BLOOD ORDERABLES Final Resu lt [facility] ([facility]) [address] [place] [address] * (ABNORMAL) POCT glucose meter (11/07/2024 11:55 AM EDT) Glucose POC 121(H) 70 - 105 mg/dL 11/07/2024 12:06 PM EDT [facility] ([facility]) Comment:[email or web address] Blood Capillary blood specimen / Unknown 11/07/2024 11:55 AM EDT 11/07/2024 12:06 PM EDT [facility] ([facility]) - 11/07/2024 12:06 PM EDT Waived Testing in the ED is performed under the ED CLIA certificate #[id number]. us Mauricio Garcia MD LAB BLOOD ORDERABLES Final Resu lt [facility] ([facility]) [address] [place] [address] * ECG 12 lead (11/07/2024 11:48 AM EDT) Ventricular Rate 91 BPM GE MUSE Atrial Rate 91 BPM GE MUSE MN Interval 134 ms GE MUSE QRS DURATION 88 ms GE MUSE QT Interval 386 ms GE MUSE QTC CALCULATION(BAZE TT) 474 ms GE MUSE P [place] 63 degrees GE MUSE R-[place] 35 degrees GE MUSE T Wave [place] 46 degrees GE MUSE 11/07/2024 11:3 3 [...] - 105 mg/dL 11/07/2024 7:58 AM EDT [facility] ([facility]) Comment:[email or web address] Blood Capillary blood specimen / Unknown 11/07/2024 7:43 AM EDT 11/07/2024 7:58 AM EDT Narrative [facility] ([facility]) - 11/07/2024 7:58 AM EDT Waived Testing in the ED is performed under the ED CLIA certificate #[id number]. us Mauricio Garcia MD LAB BLOOD ORDERABLES Final Resu lt [facility] ([facility]) [address] [place], [place] [id number] * (ABNORMAL) CBC (11/07/2024 6:27 AM EDT) Auto WBC 4.21 4.00 - 10.60 10*3/uL 11/07/2024 7:01 AM EDT [facility] ([facility]) RBC 3.01(L) 3.80 - 5.00 10*6/uL 11/07/2024 7:01 AM EDT [facility] ([facility]) Hemoglobin 9.0(L) 12.0 - 15.0 g/dL 11/07/2024 7:01 AM EDT [facility] ([facility]) Hematocrit 26.9(L) 36.0 - 45.0 % 11/07/2024 7:01 AM EDT [facility] ([facility]) MCV 89.4 82.0 - 98.0 fL 11/07/2024 7:01 AM EDT [facility] ([facility]) MCH 29.9 27.0 - 33.0 pg 11/07/2024 7:01 AM EDT [facility] ([facility]) MCHC 33.5 32.0 - 35.0 g/dL 11/07/2024 7:01 AM EDT [facility] ([facility]) RDW 14.2 11.5 - 15.0 % 11/07/2024 7:01 AM EDT [facility] ([facility]) Platelets 206 150 - 400 10*3/uL 11/07/2024 7:01 AM EDT [facility] ([facility]) Blood Venous blood specimen / Unknown Existing Catheter / Unknown 11/07/2024 6:27 AM EDT 11/07/2024 6:45 AM EDT us Dominic Chappell DO LAB BLOOD ORDERABLES Final Re sult [facility] ([facility]) [address] [place] [address] * High Sensitivity Troponin I (11/07/2024 4:50 AM EDT) High Sensitivity Troponin I 10 <15 ng/L 11/07/2024 1:15 PM EDT [facility] ([facility]) Blood Venous blood specimen / Unknown Existing Catheter / Unknown 11/07/2024 4:50 AM EDT 11/07/2024 5:24 AM EDT us Mauricio Garcia MD LAB BLOOD ORDERABLES Final Resu lt Performing Organization Address City/[facility]/ZIP Co de Phone Number [facility] ([facility]) [address] [place] [address] * Calcium, ionized (11/07/2024 4:50 AM EDT) Calcium, Ion 1.16 1.15 - 1.33 mmol/L 11/07/2024 5:43 AM EDT [facility] Blood Venous blood specimen / Unknown Existing Catheter / Unknown 11/07/2024 4:50 AM EDT 11/07/2024 5:38 AM EDT us Eduarda Bravo PA-C LAB BLOOD ORDERABLES Final Resu lt Performing Organization Address City/[facility]/ZIP Co de Phone Number [facility]ERAP[facility] [address] [place] [address], [place] * Phosphorus (11/07/2024 4:50 AM EDT) Phosphorus 4.7 2.5 - 5.0 mg/dL 11/07/2024 5:52 AM EDT [facility] ([facility]) Blood Venous blood specimen / Unknown Existing Catheter / Unknown 11/07/2024 4:50 AM EDT 11/07/2024 5:24 AM EDT us Rosa INMAN-C LAB BLOOD ORDERABLES Final R esult [facility] ([facility]) [address] [place] [address] * Magnesium (11/07/2024 4:50 AM EDT) Magnesium 2.1 1.9 - 2.7 mg/dL 11/07/2024 5:52 AM EDT [facility] ([facility]) Blood Venous blood specimen / Unknown Existing Catheter / Unknown 11/07/2024 4:50 AM EDT 11/07/2024 5:24 AM EDT Rosa INMAN-C LAB BLOOD ORDERABLES Final R esult Performing Organization Address City/[facility]/ZIP Co de Phone Number [facility] ([facility]) [address] [place] [address] * (ABNORMAL) Basic metabolic panel (11/07/2024 4:50 AM EDT) Sodium 139 136 - 145 mmol/L 11/07/2024 5:52 AM EDT [facility] ([facility]) Potassium 3.9 3.5 - 5.1 mmol/L 11/07/2024 5:52 AM EDT [facility] ([facility]) Chloride 105 98 - 107 mmol/L 11/07/2024 5:52 AM EDT [facility] ([facility]) CO2 28 21 - 31 mmol/L 11/07/2024 5:52 AM EDT [facility] ([facility]) BUN 14 7 - 25 mg/dL 11/07/2024 5:52 AM EDT [facility] ([facility]) Creatinine 0.52(L) 0.60 - 1.20 mg/dL 11/07/2024 5:52 AM EDT [facility] ([facility]) Glucose 87 70 - 100 mg/dL 11/07/2024 5:52 AM EDT [facility] ([facility]) Calcium 8.3(L) 8.6 - 10.3 mg/dL 11/07/2024 5:52 AM EDT [facility] ([facility]) Anion Gap 10 7 - 20 mmol/L 11/07/2024 5:52 AM EDT [facility] ([facility]) eGFR 124.2 >60.0 mL/min/1. 73m*2 11/07/2024 5:52 AM EDT [facility] ([facility]) Comment:[facility] s estimated glomerular filtration rate (eGFR) [...] BUN/Creatinine Ratio 26.9 10/17 5:52 AM EDT [facility] ([facility]) Blood Venous blood specimen / Unknown Existing Catheter / Unknown 11/07/2024 4:50 AM EDT 11/07/2024 5:24 AM EDT us Rosa Willoughby PA-C LAB BLOOD ORDERABLES Final R esult [facility] ([facility]) [address] [place] [address] * (ABNORMAL) POCT glucose meter (11/06/2024 10:59 PM EDT) Glucose POC 134(H) 70 - 105 mg/dL 11/06/2024 11:10 PM EDT [facility] ([facility]) Comment:[email or web address] Blood Capillary blood specimen / Unknown 11/06/2024 10:59 PM EDT 11/06/2024 11:10 PM EDT [facility] ([facility]) - 11/06/2024 11:10 PM EDT Waived Testing in the ED is performed under the ED CLIA certificate #[id number]. us Jose Angel Fox MD LAB BLOOD ORDERABLES Final Resu lt Performing Organization Address [facility]/ZIP Co de Phone Number [facility] ([facility]) [address] [place] [address] * (ABNORMAL) POCT glucose meter (11/06/2024 8:22 PM EDT) Glucose POC 125(H) 70 - 105 mg/dL 11/06/2024 8:33 PM EDT [facility] ([facility]) Comment:[email or web address] Blood Capillary blood specimen / Unknown 11/06/2024 8:22 PM EDT 11/06/2024 8:33 PM EDT [facility] ([facility]) - 11/06/2024 8:33 PM EDT Waived Testing in the ED is performed under the ED CLIA certificate #[id number]. us Jose Angel Fox MD LAB BLOOD ORDERABLES Final Resu lt Performing Organization Address [facility] Co de Phone Number [facility] ([facility]) [address] [place] [address] * (ABNORMAL) POCT glucose meter (11/06/2024 5:05 PM EDT) Glucose POC 135(H) 70 - 105 mg/dL 11/06/2024 5:16 PM EDT [facility] ([facility]) Comment:[email or web address] Blood Capillary blood specimen / Unknown 11/06/2024 5:05 PM EDT 11/06/2024 5:16 PM EDT [facility] ([facility]) - 11/06/2024 5:16 PM EDT Waived Testing in the ED is performed under the ED CLIA certificate #[id number]. us Jose Angel Fox MD LAB BLOOD ORDERABLES Final Resu lt Performing Organization Address City/[facility]/ZIP Co de Phone Number [facility] ([facility]) [address] [place] [address] * Calcium, ionized (11/06/2024 12:24 PM EDT) Calcium, Ion 1.15 1.15 - 1.33 mmol/L 11/06/2024 12:55 PM EDT [facility] Blood Venous blood specimen / Unknown Existing Catheter / Unknown 11/06/2024 12:24 PM EDT 11/06/2024 12:52 PM EDT us Eduarda Bravo PA-C LAB BLOOD ORDERABLES Final Resu lt Performing Organization Address [facility] Co de Phone Number [facility]ERAP[facility] [address] [place] [address], [place] * (ABNORMAL) POCT glucose meter (11/06/2024 12:19 PM EDT) Glucose POC 108(H) 70 - 105 mg/dL 11/06/2024 12:30 PM EDT [facility] ([facility]) Comment:[email or web address] Blood Capillary blood specimen / Unknown 11/06/2024 12:19 PM EDT 11/06/2024 12:30 PM EDT Narrative [facility] ([facility]) - 11/06/2024 12:30 PM EDT Waived Testing in the ED is performed under the ED CLIA certificate #[id number]. us Jose Angel Fox MD LAB BLOOD ORDERABLES Final Resu lt Performing Organization Address City/[facility]/ZIP Co de Phone Number [facility] ([facility]) [address] [place] [address] * Vasc Us Lower Extremity Pseudoaneurysm Duplex [...] POCT glucose meter (11/06/2024 7:52 AM EDT) [facility] Glucose POC 99 70 - 105 mg/dL 11/06/2024 8:03 AM EDT [facility] ([facility]) Comment:[email or web address] Blood Capillary blood specimen / Unknown 11/06/2024 7:52 AM EDT 11/06/2024 8:03 AM EDT Narrative [facility] ([facility]) - 11/06/2024 8:03 AM EDT Waived Testing in the ED is performed under the ED CLIA certificate #[id number]. us Jose Angel Fox MD LAB BLOOD ORDERABLES Final Resu lt [facility] ([facility]) [address] [place] [address] * (ABNORMAL) CBC auto differential (11/06/2024 5:50 AM EDT) [facility] Auto WBC 3.50(L) 4.00 - 10.60 10*3/uL 11/06/2024 6:05 AM EDT [facility] ([facility]) RBC 2.99(L) 3.80 - 5.00 10*6/uL 11/06/2024 6:05 AM EDT [facility] ([facility]) Hemoglobin 8.8(L) 12.0 - 15.0 g/dL 11/06/2024 6:05 AM EDT [facility] ([facility]) Hematocrit 26.6(L) 36.0 - 45.0 % 11/06/2024 6:05 AM T [facility] ([facility]) MCV 89.0 82.0 - 98.0 fL 11/06/2024 6:05 AM [facility] ([facility]) MCH 29.4 27.0 - 33.0 pg 11/06/2024 6:05 AM [facility] ([facility]) MCHC 33.1 32.0 - 35.0 g/dL 11/06/2024 6:05 AM [facility] ([facility]) RDW 13.9 11.5 - 15.0 % 11/06/2024 6:05 AM [facility] ([facility]) Neutrophils % 42.5 40.0 - 72.0 % 11/06/2024 6:05 AM [facility] ([facility]) Lymphocytes % 40.0 20.0 - 45.0 % 11/06/2024 6:05 AM [facility] ([facility]) Monocytes % 10.0 5.0 - 12.0 % 11/06/2024 6:05 AM [facility] ([facility]) Eosinophils % 6.3(H) 0.0 - 6.0 % 11/06/2024 6:05 AM [facility] ([facility]) Basophils % 0.9 0.0 - 1.0 % 11/06/2024 6:05 AM [facility] ([facility]) Neutrophils Absolute 1.49(L) 1.60 - 7.60 10*3/uL 11/06/2024 6:05 AM [facility] ([facility]) Lymphocytes Absolute 1.40 1.20 - 4.00 10*3/uL 11/06/2024 6:05 AM [facility] ([facility]) Monocytes Absolute 0.35 0.10 - 1.00 10*3/uL 11/06/2024 6:05 AM [facility] ([facility]) Eosinophils Absolute 0.22 0.00 - 0.50 10*3/uL 11/06/2024 6:05 AM [facility] ([facility]) Basophils Absolute 0.03 0.00 - 0.20 10*3/uL 11/06/2024 6:05 AM EDT [facility] ([facility]) Platelets 185 150 - 400 10*3/uL 11/06/2024 6:05 AM EDT [facility] ([facility]) nRBC % 0.0 0 % 11/06/2024 6:05 AM EDT [facility] ([facility]) Immature Granulocytes % 0.3 0.0 - 1.0 % 11/06/2024 6:05 AM EDT [facility] ([facility]) Immature Granulocytes Absolute 0.01 0.00 - 0.20 10*3/uL 11/06/2024 6:05 AM EDT [facility] ([facility]) Blood Venous blood specimen / Unknown Existing Catheter / Unknown 11/06/2024 5:50 AM EDT 11/06/2024 5:56 AM EDT us Jose Angel Fox MD LAB BLOOD ORDERABLES Final Resu lt [facility]) [address] [place] [address] * Phosphorus (11/06/2024 5:50 AM EDT) Phosphorus 4.7 2.5 - 5.0 mg/dL 11/06/2024 6:[address] [facility]) Blood Venous blood specimen / Unknown Existing Catheter / Unknown 11/06/2024 5:50 AM EDT 11/06/2024 5:56 AM EDT us Rosa Willoughby PA-C LAB BLOOD ORDERABLES Final R esult [facility]) [address] [place] [address] * Magnesium (11/06/2024 5:50 AM EDT) Magnesium 1.9 1.9 - 2.7 mg/dL 11/06/2024 6:[address] [facility]) Blood Venous blood specimen / Unknown Existing Catheter / Unknown 11/06/2024 5:50 AM EDT 11/06/2024 5:56 AM EDT us Rosa Willoughby PA-C LAB BLOOD ORDERABLES Final R esult [facility] ([facility]) [address] [place] [address] * (ABNORMAL) Basic metabolic panel (11/06/2024 5:50 AM EDT) Sodium 139 136 - 145 mmol/L 11/06/2024 6:52 AM EDT [facility] ([facility]) Potassium 3.9 3.5 - 5.1 mmol/L 11/06/2024 6:52 AM EDT [facility] ([facility]) Chloride 105 98 - 107 mmol/L 11/06/2024 6:52 AM EDT [facility] ([facility]) CO2 27 21 - 31 mmol/L 11/06/2024 6:52 AM EDT [facility] ([facility]) BUN 12 7 - 25 mg/dL 11/06/2024 6:52 AM EDT [facility] ([facility]) Creatinine 0.61 0.60 - 1.20 mg/dL 11/06/2024 6:52 AM EDT [facility] ([facility]) Glucose 85 70 - 100 mg/dL 11/06/2024 6:52 AM EDT [facility] ([facility]) Calcium 8.4(L) 8.6 - 10.3 mg/dL 11/06/2024 6:52 AM EDT [facility] ([facility]) Anion Gap 11 7 - 20 mmol/L 11/06/2024 6:52 AM EDT [facility] ([facility]) eGFR 119.5 >60.0 mL/min/1. 73m*2 11/06/2024 6:52 AM EDT [facility] ([facility]) Comment:[facility] s estimated glomerular filtration rate (eGFR) [...] BUN/Creatinine Ratio 19.7 10/17 6:52 AM EDT [facility] ([facility]) Blood Venous blood specimen / Unknown Existing Catheter / Unknown 11/06/2024 5:50 AM EDT 11/06/2024 5:56 AM EDT us Rosa Willoughby PA-C LAB BLOOD ORDERABLES Final R esult Performing Organization Address City/[facility]/ZIP Co de Phone Number [facility]) [address] [place], [place] [id number] * (ABNORMAL) POCT glucose meter (11/05/2024 10:07 PM EDT) Glucose POC 118(H) 70 - 105 mg/dL 11/05/2024 10:24 PM EDT [facility] ([facility]) Comment:[email or web address] Blood Capillary blood specimen / Unknown 11/05/2024 10:07 PM EDT 11/05/2024 10:24 PM EDT Narrative [facility]) - 11/05/2024 10:24 PM EDT Waived Testing in the ED is performed under the ED CLIA certificate #[id number]. us Jose Angel Fox MD LAB BLOOD ORDERABLES Final Resu lt Performing Organization Address City/[facility]/ZIP Co de Phone Number [facility]) [address] [place] [address] * POCT glucose meter (11/05/2024 4:37 PM EDT) Glucose POC 96 70 - 105 mg/dL 11/05/2024 4:48 PM EDT [facility] ([facility]) Comment:[email or web address] Blood Capillary blood specimen / Unknown 11/05/2024 4:37 PM EDT 11/05/2024 4:48 PM EDT Narrative [facility] ([facility]) - 11/05/2024 4:48 PM EDT Waived Testing in the ED is performed under the ED CLIA certificate #[id number]. Jose Angel Fox MD LAB BLOOD ORDERABLES Final Resu lt Performing Organization Address City/[facility]/ZIP Co de Phone Number [facility] ([facility]) [address] [place] [address] * (ABNORMAL) POCT glucose meter (11/05/2024 11:36 AM EDT) Glucose POC 123(H) 70 - 105 mg/dL 11/05/2024 11:47 AM EDT [facility] ([facility]) Comment:[email or web address] Blood Capillary blood specimen / Unknown 11/05/2024 11:36 AM EDT 11/05/2024 11:47 AM EDT Narrative [facility] ([facility]) - 11/05/2024 11:47 AM EDT Waived Testing in the ED is performed under the ED CLIA certificate #[id number]. us Jose Angel Fox MD LAB BLOOD ORDERABLES Final Resu lt Performing Organization Address [facility] Co de Phone Number [facility] ([facility]) [address] [place] [address] * (ABNORMAL) Hemoglobin and hematocrit, blood (11/05/2024 9:01 AM EDT) Hemoglobin 9.4(L) 12.0 - 15.0 g/dL 11/05/2024 9:24 AM EDT [facility] ([facility]) Hematocrit 27.5(L) 36.0 - 45.0 % 11/05/2024 9:24 AM EDT [facility] ([facility]) Blood Venous blood specimen / Unknown Existing Catheter / Unknown 11/05/2024 9:01 AM EDT 11/05/2024 9:09 AM EDT us Tomasa Disla MD LAB BLOOD ORDERABLES Fin al Result [facility]) [address] [place] [address] * (ABNORMAL) POCT glucose meter (11/05/2024 8:36 AM EDT) Glucose POC 120(H) 70 - 105 mg/dL 11/05/2024 8:46 AM EDT [facility] ([facility]) Comment:[email or web address] Blood Capillary blood specimen / Unknown 11/05/2024 8:36 AM EDT 11/05/2024 8:46 AM EDT Narrative [facility]) - 11/05/2024 8:46 AM EDT Waived Testing in the ED is performed under the ED CLIA certificate #[id number]. us Jose Angel Fox MD LAB BLOOD ORDERABLES Final Resu lt Performing Organization Address City/[facility]/ZIP Co de Phone Number [facility]) [address] [place] [address] * Phosphorus (11/05/2024 3:48 AM EDT) Phosphorus 4.0 2.5 - 5.0 mg/dL 11/05/2024 4:19 AM EDT [facility] ([facility]) Blood Venous blood specimen / Unknown Existing Catheter / Unknown 11/05/2024 3:48 AM EDT 11/05/2024 3:56 AM EDT us Rosa Willoughby PA-C LAB BLOOD ORDERABLES Final R esult [facility]) [address] [place], [place] [id number] * Magnesium (11/05/2024 3:48 AM EDT) Magnesium 1.9 1.9 - 2.7 mg/dL 11/05/2024 4:19 AM EDT [facility] ([facility]) Blood Venous blood specimen / Unknown Existing Catheter / Unknown 11/05/2024 3:48 AM EDT 11/05/2024 3:56 AM EDT us Rosa Willoughby PA-C LAB BLOOD ORDERABLES Final R esult [facility] ([facility]) [address] [place] [address] * (ABNORMAL) Basic metabolic panel (11/05/2024 3:48 AM EDT) Sodium 139 136 - 145 mmol/L 11/05/2024 4:19 AM EDT [facility] ([facility]) Potassium 3.6 3.5 - 5.1 mmol/L 11/05/2024 4:19 AM EDT [facility] ([facility]) Chloride 107 98 - 107 mmol/L 11/05/2024 4:19 AM EDT [facility] ([facility]) CO2 28 21 - 31 mmol/L 11/05/2024 4:19 AM EDT [facility] ([facility]) BUN 11 7 - 25 mg/dL 11/05/2024 4:19 AM EDT [facility] ([facility]) Creatinine 0.48(L) 0.60 - 1.20 mg/dL 11/05/2024 4:19 AM EDT [facility] ([facility]) Glucose 120(H) 70 - 100 mg/dL 11/05/2024 4:19 AM EDT [facility] ([facility]) Calcium 8.0(L) 8.6 - 10.3 mg/dL 11/05/2024 4:19 AM EDT [facility] ([facility]) Anion Gap 8 7 - 20 mmol/L 11/05/2024 4:19 AM EDT [facility] ([facility]) eGFR 126.6 >60.0 mL/min/1. 73m*2 11/05/2024 4:19 AM EDT [facility] ([facility]) Comment:[facility] s estimated glomerular filtration rate (eGFR) [...] BUN/Creatinine Ratio 22.9 10/17 4:19 AM EDT [facility] ([facility]) Blood Venous blood specimen / Unknown Existing Catheter / Unknown 11/05/2024 3:48 AM EDT 11/05/2024 3:56 AM EDT us Rosa Willoughby PA-C LAB BLOOD ORDERABLES Final R esult [facility] ([facility]) [address] [place] [address] * (ABNORMAL) CBC (11/05/2024 3:48 AM EDT) Auto WBC 3.54(L) 4.00 - 10.60 10*3/uL 11/05/2024 4:23 AM EDT [facility] ([facility]) RBC 2.91(L) 3.80 - 5.00 10*6/uL 11/05/2024 4:23 AM EDT [facility] ([facility]) Hemoglobin 8.6(L) 12.0 - 15.0 g/dL 11/05/2024 4:23 AM EDT [facility] ([facility]) Hematocrit 25.5(L) 36.0 - 45.0 % 11/05/2024 4:23 AM EDT [facility] ([facility]) MCV 87.6 82.0 - 98.0 fL 11/05/2024 4:23 AM EDT [facility] ([facility]) MCH 29.6 27.0 - 33.0 pg 11/05/2024 4:23 AM EDT [facility] ([facility]) MCHC 33.7 32.0 - 35.0 g/dL 11/05/2024 4:23 AM EDT [facility] ([facility]) RDW 14.1 11.5 - 15.0 % 11/05/2024 4:23 AM EDT [facility] ([facility]) Platelets 177 150 - 400 10*3/uL 11/05/2024 4:23 AM EDT [facility] ([facility]) Blood Venous blood specimen / Unknown Existing Catheter / Unknown 11/05/2024 3:48 AM EDT 11/05/2024 3:56 AM EDT Rosa Willoughby PA-C LAB BLOOD ORDERABLES Final R esult [facility] ([facility]) [address] [place] [address] * Calcium, ionized (11/05/2024 1:00 AM EDT) Calcium, Ion 1.16 1.15 - 1.33 mmol/L 11/05/2024 4:02 AM EDT [facility] Blood Venous blood specimen / Unknown 11/05/2024 1:00 AM EDT 11/05/2024 3:55 AM EDT Rosa Willoughby PA-C LAB BLOOD ORDERABLES Final R esult [facility] [address] [place] [address], [place] * (ABNORMAL) Hemoglobin and hematocrit, blood (11/05/2024 12:54 AM EDT) Hemoglobin 8.5(L) 12.0 - 15.0 g/dL 11/05/2024 1:54 AM EDT [facility] ([facility]) Hematocrit 24.9(L) 36.0 - 45.0 % 11/05/2024 1:54 AM EDT [facility] ([facility]) Blood Venous blood specimen / Unknown Existing Catheter / Unknown 11/05/2024 12:54 AM EDT 11/05/2024 1:19 AM EDT us Tomasa Disla MD LAB BLOOD ORDERABLES Fin al Result Performing Organization Address [facility]/ZIP Co de Phone Number [facility]) [address] [place] [address] * POCT glucose meter (11/04/2024 10:33 PM EDT) Glucose POC 102 70 - 105 mg/dL 11/04/2024 10:44 PM EDT [facility] ([facility]) Comment:[email or web address] Blood Capillary blood specimen / Unknown 11/04/2024 10:33 PM EDT 11/04/2024 10:44 PM EDT Narrative [facility] ([facility]) - 11/04/2024 10:44 PM EDT Waived Testing in the ED is performed under the ED CLIA certificate #[id number]. us Jose Angel Fox MD LAB BLOOD ORDERABLES Final Resu lt Performing Organization Address [facility]/ZIP Co de Phone Number [facility] ([facility]) [address] [place] [id number] * (ABNORMAL) Basic metabolic panel (11/04/2024 8:17 PM EDT) Sodium 137 136 - 145 mmol/L 11/04/2024 8:42 PM EDT [facility] ([facility]) Potassium 4.0 3.5 - 5.1 mmol/L 11/04/2024 8:42 PM EDT [facility] ([facility]) Chloride 106 98 - 107 mmol/L 11/04/2024 8:42 PM EDT [facility] ([facility]) CO2 27 21 - 31 mmol/L 11/04/2024 8:42 PM EDT [facility] ([facility]) BUN 14 7 - 25 mg/dL 11/04/2024 8:42 PM EDT [facility] ([facility]) Creatinine 0.48(L) 0.60 - 1.20 mg/dL 11/04/2024 8:42 PM EDT [facility] ([facility]) Glucose 82 70 - 100 mg/dL 11/04/2024 8:42 PM EDT [facility] ([facility]) Calcium 7.8(L) 8.6 - 10.3 mg/dL 11/04/2024 8:42 PM EDT [facility] ([facility]) Anion Gap 8 7 - 20 mmol/L 11/04/2024 8:42 PM EDT [facility] ([facility]) eGFR 126.6 >60.0 mL/min/1. 73m*2 11/04/2024 8:42 PM EDT [facility] ([facility]) Comment:[facility] s estimated glomerular filtration rate (eGFR) [...] BUN/Creatinine Ratio 29.2 10/17 8:42 PM EDT [facility] ([facility]) Blood Venous blood specimen / Unknown Existing Catheter / Unknown 11/04/2024 8:17 PM EDT 11/04/2024 8:17 PM EDT us Audie Sylvester PA-C LAB BLOOD ORDERABLES F inal Result [facility] ([facility]) [address] [place] [address] * (ABNORMAL) Hemoglobin and hematocrit, blood (11/04/2024 8:13 PM EDT) Hemoglobin 9.0(L) 12.0 - 15.0 g/dL 11/04/2024 8:24 PM EDT [facility] ([facility]) Hematocrit 26.7(L) 36.0 - 45.0 % 11/04/2024 8:24 PM EDT [facility] ([facility]) Blood Venous blood specimen / Unknown Existing Catheter / Unknown 11/04/2024 8:13 PM EDT 11/04/2024 8:17 PM EDT us Tomasa Disla MD LAB BLOOD ORDERABLES Fin al Result Performing Organization Address City/[facility]/ZIP Co de Phone Number [facility]) [address] [place] [address] * (ABNORMAL) POCT glucose meter (11/04/2024 5:12 PM EDT) Pathologist [facility] Glucose POC 147(H) 70 - 105 mg/dL 11/04/2024 5:[address] [facility]) Comment:[email or web address] Blood Capillary blood specimen / Unknown 11/04/2024 5:12 PM EDT 11/04/2024 5:23 PM EDT Narrative [facility]) - 11/04/2024 5:23 PM EDT Waived Testing in the ED is performed under the ED CLIA certificate #[id number]. us Jose Angel Fox MD LAB BLOOD ORDERABLES Final Resu lt Performing Organization Address [facility]/ZIP Co de Phone Number [facility]) [address] [place] [address] * Transfuse RBC (11/04/2024 4:57 PM EDT) Result Thelma Disla MD BLOOD TRANSFUSION ORDERA BLES Final Result * Transfuse RBC: 1 Units (11/04/2024 4:57 PM EDT) Result Thelma Disla MD BLOOD TRANSFUSION ORDERA BLES Final Result * ECG 12 lead (11/04/2024 1:59 PM EDT) Ventricular Rate 100 BPM GE MUSE Atrial Rate 100 BPM GE MUSE MN Interval 132 ms GE MUSE QRS DURATION 94 ms GE MUSE QT Interval 382 ms GE MUSE QTC CALCULATION(BAZE TT) 492 ms GE MUSE P [place] 60 degrees GE MUSE R-[place] 34 degrees GE MUSE T Wave [place] 58 degrees GE MUSE 11/04/2024 1:40 PM [...] and hematocrit, blood (11/04/2024 1:38 PM EDT) Pathologist [facility] Hemoglobin 7.9(L) 12.0 - 15.0 g/dL 11/04/2024 1:49 PM EDT [facility] ([facility]) Hematocrit 23.9(L) 36.0 - 45.0 % 11/04/2024 1:49 PM EDT [facility] ([employer]) Blood Venous blood specimen / Unknown Existing Catheter / Unknown 11/04/2024 1:38 PM EDT 11/04/2024 1:43 PM EDT Tomasa Disla MD LAB BLOOD ORDERABLES Fin al Result [facility] ([employer]) [address] [place] [address] * (ABNORMAL) Basic metabolic panel (11/04/2024 1:38 PM EDT) Sodium 135(L) 136 - 145 mmol/L 11/04/2024 2:09 PM EDT [facility] ([facility]) Potassium 4.2 3.5 - 5.1 mmol/L 11/04/2024 2:09 PM EDT [facility] ([facility]) Chloride 106 98 - 107 mmol/L 11/04/2024 2:09 PM EDT [facility] ([facility]) CO2 24 21 - 31 mmol/L 11/04/2024 2:09 PM T [facility] ([facility]) BUN 13 7 - 25 mg/dL 11/04/2024 2:09 PM EDT [facility] ([facility]) Creatinine 0.61 0.60 - 1.20 mg/dL 11/04/2024 2:09 PM T [facility] ([facility]) Glucose 191(H) 70 - 100 mg/dL 11/04/2024 2:09 PM T [facility] ([facility]) Calcium 7.6(L) 8.6 - 10.3 mg/dL 11/04/2024 2:09 PM T [facility] ([facility]) Anion Gap 9 7 - 20 mmol/L 11/04/2024 2:09 PM T [facility] ([facility]) eGFR 119.5 >60.0 mL/min/1. 73m*2 11/04/2024 2:09 PM T [facility] ([facility]) Comment:[facility] s estimated glomerular filtration rate (eGFR) [...] BUN/Creatinine Ratio 21.3 10/17 2:09 PM EDT [facility] ([facility]) Blood Venous blood specimen / Unknown Existing Catheter / Unknown 11/04/2024 1:38 PM EDT 11/04/2024 1:43 PM EDT Tomasa Disla MD LAB BLOOD ORDERABLES Fin al Result [facility]) [address] [place] [address] * (ABNORMAL) High Sensitivity Troponin I (11/04/2024 1:38 PM EDT) High Sensitivity Troponin I 36(H) <15 ng/L 11/04/2024 2:[address] [facility]) Blood Venous blood specimen / Unknown Existing Catheter / Unknown 11/04/2024 1:38 PM EDT 11/04/2024 1:43 PM EDT Tomasa Disla MD LAB BLOOD ORDERABLES Fin al Result Performing Organization Address City/[facility]/ZIP Co de Phone Number [facility] [address] [place] [address] * (ABNORMAL) POCT glucose meter (11/04/2024 1:06 PM EDT) Glucose POC 125(H) 70 - 105 mg/dL 11/04/2024 1:19 PM EDT [facility]) Comment:[email or web address] Blood Capillary blood specimen / Unknown 11/04/2024 1:06 PM EDT 11/04/2024 1:19 PM EDT Narrative [facility]) - 11/04/2024 1:19 PM EDT Waived Testing in the ED is performed under the ED CLIA certificate #[id number]. us Jose Angel Fox MD LAB BLOOD ORDERABLES Final Resu lt [facility]) [address] [place] [address] * CTA Abdomen Pelvis W IV Contrast [...] - 105 mg/dL 11/04/2024 9:31 AM EDT [facility] ([facility]) Comment:[email or web address] Blood Capillary blood specimen / Unknown 11/04/2024 9:20 AM EDT 11/04/2024 9:31 AM EDT [facility] ([facility]) - 11/04/2024 9:31 AM EDT Waived Testing in the ED is performed under the ED CLIA certificate #[id number]. us Jose Angel Fox MD LAB BLOOD ORDERABLES Final Resu lt Performing Organization Address [facility]/ZIP Co de Phone Number [facility] [address], [place] [id number] * (ABNORMAL) POCT glucose meter (11/04/2024 5:10 AM EDT) Glucose POC 146(H) 70 - 105 mg/dL 11/04/2024 5:21 AM EDT [facility] ([facility]) Comment:[email or web address] Blood Capillary blood specimen / Unknown 11/04/2024 5:10 AM EDT 11/04/2024 5:21 AM EDT [facility]) - 11/04/2024 5:21 AM EDT Waived Testing in the ED is performed under the ED CLIA certificate #[id number]. us Ky Ritter MD LAB BLOOD ORDERABLES Final Re sult Performing Organization Address [facility]/ZIP Co de Phone Number [facility] [address], [place] [phone] * Phosphorus (11/04/2024 5:05 AM EDT) Phosphorus 3.3 2.5 - 5.0 mg/dL 11/04/2024 6:27 AM EDT [facility] ([facility]) Blood Venous blood specimen / Unknown Existing Catheter / Unknown 11/04/2024 5:05 AM EDT 11/04/2024 5:08 AM EDT Rosa INMAN-C LAB BLOOD ORDERABLES Final R esult [facility]) [address] [place] [address] * Magnesium (11/04/2024 5:05 AM EDT) Magnesium 1.9 1.9 - 2.7 mg/dL 11/04/2024 6:27 AM EDT [facility] ([facility]) Blood Venous blood specimen / Unknown Existing Catheter / Unknown 11/04/2024 5:05 AM EDT 11/04/2024 5:08 AM EDT Rosa INMAN-C LAB BLOOD ORDERABLES Final R esult [facility]) [address] [place] [address] * (ABNORMAL) Basic metabolic panel (11/04/2024 5:05 AM EDT) Sodium 140 136 - 145 mmol/L 11/04/2024 6:27 AM EDT [facility] ([facility]) Potassium 3.6 3.5 - 5.1 mmol/L 11/04/2024 6:27 AM EDT [facility] ([facility]) Chloride 108(H) 98 - 107 mmol/L 11/04/2024 6:27 AM EDT [facility] ([facility]) CO2 28 21 - 31 mmol/L 11/04/2024 6:27 AM EDT [facility] ([facility]) BUN 9 7 - 25 mg/dL 11/04/2024 6:27 AM EDT [facility] ([facility]) Creatinine 0.45(L) 0.60 - 1.20 mg/dL 11/04/2024 6:27 AM EDT [facility] ([facility]) Glucose 128(H) 70 - 100 mg/dL 11/04/2024 6:27 AM EDT [facility] ([facility]) Calcium 7.6(L) 8.6 - 10.3 mg/dL 11/04/2024 6:27 AM EDT [facility] ([facility]) Anion Gap 8 7 - 20 mmol/L 11/04/2024 6:27 AM EDT [facility] ([facility]) eGFR 128.6 >60.0 mL/min/1. 73m*2 11/04/2024 6:27 AM EDT [facility] ([facility]) Comment:[facility] s estimated glomerular filtration rate (eGFR) [...] BUN/Creatinine Ratio 20.0 10/17 6:27 AM EDT [facility] ([facility]) Blood Venous blood specimen / Unknown Existing Catheter / Unknown 11/04/2024 5:05 AM EDT 11/04/2024 5:08 AM EDT us Rosa Willoughby PA-C LAB BLOOD ORDERABLES Final R esult [facility] ([facility]) [address] [place] [address] * (ABNORMAL) CBC (11/04/2024 5:05 AM EDT) Auto WBC 3.79(L) 4.00 - 10.60 10*3/uL 11/04/2024 5:17 AM EDT [facility] ([facility]) RBC 2.66(L) 3.80 - 5.00 10*6/uL 11/04/2024 5:17 AM EDT [facility] ([facility]) Hemoglobin 8.0(L) 12.0 - 15.0 g/dL 11/04/2024 5:17 AM EDT [facility] ([facility]) Hematocrit 23.7(L) 36.0 - 45.0 % 11/04/2024 5:17 AM EDT [facility] ([facility]) MCV 89.1 82.0 - 98.0 fL 11/04/2024 5:17 AM EDT [facility] ([facility]) MCH 30.1 27.0 - 33.0 pg 11/04/2024 5:17 AM EDT [facility] ([facility]) MCHC 33.8 32.0 - 35.0 g/dL 11/04/2024 5:17 AM EDT [facility] ([facility]) RDW 13.9 11.5 - 15.0 % 11/04/2024 5:17 AM EDT [facility] ([facility]) Platelets 185 150 - 400 10*3/uL 11/04/2024 5:17 AM EDT [facility] ([facility]) Blood Venous blood specimen / Unknown Existing Catheter / Unknown 11/04/2024 5:05 AM EDT 11/04/2024 5:08 AM EDT us Rosa Willoughby PA-C LAB BLOOD ORDERABLES Final R esult [facility] ([facility]) [address] [place] [id number] * (ABNORMAL) Calcium, ionized (11/04/2024 5:05 AM EDT) Calcium, Ion 1.12(L) 1.15 - 1.33 mmol/L 11/04/2024 5:15 AM EDT [facility] Blood Venous blood specimen / Unknown Existing Catheter / Unknown 11/04/2024 5:05 AM EDT 11/04/2024 5:12 AM EDT us Rosa Willoughby PA-C LAB BLOOD ORDERABLES Final R esult [facility] [address] [place] [address], [place] * (ABNORMAL) POCT glucose meter (11/04/2024 12:12 AM EDT) Glucose POC 190(H) 70 - 105 mg/dL 11/04/2024 12:23 AM EDT [facility] ([facility]) Comment:[email or web address] Blood Capillary blood specimen / Unknown 11/04/2024 12:12 AM EDT 11/04/2024 12:23 AM EDT Narrative [facility] ([facility]) - 11/04/2024 12:23 AM EDT Waived Testing in the ED is performed under the ED CLIA certificate #[id number]. Ky Ritter MD LAB BLOOD ORDERABLES Final Re sult Performing Organization Address [facility]/ZIP Co de Phone Number [facility] ([facility]) [address] [place] [address] * (ABNORMAL) Hemoglobin and hematocrit, blood (11/04/2024 12:09 AM EDT) Hemoglobin 8.0(L) 12.0 - 15.0 g/dL 11/04/2024 12:56 AM EDT [facility] ([facility]) Hematocrit 23.5(L) 36.0 - 45.0 % 11/04/2024 12:56 AM EDT [facility] ([facility]) Blood Venous blood specimen / Unknown Existing Catheter / Unknown 11/04/2024 12:09 AM EDT 11/04/2024 12:13 AM EDT Sid Cruz PA-C LAB BLOOD ORDERABLES Final Result [facility] ([facility]) [address] [place] [address] * (ABNORMAL) POCT glucose meter (11/03/2024 9:52 PM EDT) Glucose POC 130(H) 70 - 105 mg/dL 11/03/2024 10:03 PM EDT [facility] ([facility]) Comment:[email or web address] Blood Capillary blood specimen / Unknown 11/03/2024 9:52 PM EDT 11/03/2024 10:03 PM EDT Narrative [facility] ([facility]) - 11/03/2024 10:03 PM EDT Waived Testing in the ED is performed under the ED CLIA certificate #[id number]. Ky Ritter MD LAB BLOOD ORDERABLES Final Re sult [facility] ([facility]) [address] [place] [address] * (ABNORMAL) Hemoglobin and hematocrit, blood (11/03/2024 6:34 PM EDT) Hemoglobin 8.3(L) 12.0 - 15.0 g/dL 11/03/2024 6:48 PM EDT [facility] ([facility]) Hematocrit 24.9(L) 36.0 - 45.0 % 11/03/2024 6:48 PM EDT [facility] ([facility]) Blood Venous blood specimen / Unknown Existing Catheter / Unknown 11/03/2024 6:34 PM EDT 11/03/2024 6:40 PM EDT Sid INMAN-Elroy LAB BLOOD ORDERABLES Final Result [facility] ([facility]) [address] [place] [address] * POCT glucose meter (11/03/2024 5:35 PM EDT) Glucose POC 101 70 - 105 mg/dL 11/03/2024 5:45 PM EDT [facility] ([facility]) Comment:[email or web address] Blood Capillary blood specimen / Unknown 11/03/2024 5:35 PM EDT 11/03/2024 5:45 PM EDT Narrative [facility] ([facility]) - 11/03/2024 5:45 PM EDT Waived Testing in the ED is performed under the ED CLIA certificate #[id number]. us Ky Ritter MD LAB BLOOD ORDERABLES Final Re sult [facility] ([facility]) [address] [place] [address] * (ABNORMAL) CBC (11/03/2024 1:23 PM EDT) Auto WBC 7.60 4.00 - 10.60 10*3/uL 11/03/2024 1:54 PM EDT [facility] ([facility]) RBC 3.01(L) 3.80 - 5.00 10*6/uL 11/03/2024 1:54 PM EDT [facility] ([facility]) Hemoglobin 9.0(L) 12.0 - 15.0 g/dL 11/03/2024 1:54 PM EDT [facility] ([facility]) Hematocrit 26.7(L) 36.0 - 45.0 % 11/03/2024 1:54 PM EDT [facility] ([facility]) MCV 88.7 82.0 - 98.0 fL 11/03/2024 1:54 PM EDT [facility] ([facility]) MCH 29.9 27.0 - 33.0 pg 11/03/2024 1:54 PM EDT [facility] ([facility]) MCHC 33.7 32.0 - 35.0 g/dL 11/03/2024 1:54 PM EDT [facility] ([facility]) RDW 13.9 11.5 - 15.0 % 11/03/2024 1:54 PM EDT [facility] ([facility]) Platelets 253 150 - 400 10*3/uL 11/03/2024 1:54 PM EDT [facility] ([facility]) Blood Venous blood specimen / Unknown Existing Catheter / Unknown 11/03/2024 1:23 PM EDT 11/03/2024 1:34 PM EDT Mikayla Jennings PA-C LAB BLOOD ORDERABLES Final Re sult [facility] ([facility]) [address] [place] [address] * (ABNORMAL) POCT glucose meter (11/03/2024 11:35 AM EDT) Glucose POC 145(H) 70 - 105 mg/dL 11/03/2024 11:47 AM EDT [facility] ([facility]) Comment:[email or web address] Blood Capillary blood specimen / Unknown 11/03/2024 11:35 AM EDT 11/03/2024 11:47 AM EDT Narrative [facility] ([facility]) - 11/03/2024 11:47 AM EDT Waived Testing in the ED is performed under the ED CLIA certificate #[id number]. Ky Ritter MD LAB BLOOD ORDERABLES Final Re sult Performing Organization Address [facility]/ZIP Co de Phone Number [facility] ([facility]) [address] [place] [id number] * (ABNORMAL) POCT glucose meter (11/03/2024 7:46 AM EDT) Glucose POC 135(H) 70 - 105 mg/dL 11/03/2024 8:09 AM EDT [facility] ([facility]) Comment:[email or web address] Blood Capillary blood specimen / Unknown 11/03/2024 7:46 AM EDT 11/03/2024 8:09 AM EDT Narrative [facility] ([facility]) - 11/03/2024 8:09 AM EDT Waived Testing in the ED is performed under the ED CLIA certificate #[id number]. Ky Ritter MD LAB BLOOD ORDERABLES Final Re sult [facility] ([facility]) [address] [place], [place] [id number] * Phosphorus (11/03/2024 4:46 AM EDT) Phosphorus 3.7 2.5 - 5.0 mg/dL 11/03/2024 5:30 AM EDT [facility] ([facility]) Blood Venous blood specimen / Unknown Existing Catheter / Unknown 11/03/2024 4:46 AM EDT 11/03/2024 4:58 AM EDT us Rosa Willoughby PA-C LAB BLOOD ORDERABLES Final R esult Performing Organization Address City/[facility]/ZIP Co de Phone Number [facility] ([facility]) [address] [place] [address] * Magnesium (11/03/2024 4:46 AM EDT) Pathologist [facility] Magnesium 2.2 1.9 - 2.7 mg/dL 11/03/2024 5:30 AM EDT [facility] ([facility]) Blood Venous blood specimen / Unknown Existing Catheter / Unknown 11/03/2024 4:46 AM EDT 11/03/2024 4:58 AM EDT us Rosa Willoughby PA-C LAB BLOOD ORDERABLES Final R esult [facility] ([facility]) [address] [place], [place] [id number] * (ABNORMAL) Basic metabolic panel (11/03/2024 4:46 AM EDT) Sodium 136 136 - 145 mmol/L 11/03/2024 5:30 AM EDT [facility] ([facility]) Potassium 4.4 3.5 - 5.1 mmol/L 11/03/2024 5:30 AM EDT [facility] ([facility]) Chloride 108(H) 98 - 107 mmol/L 11/03/2024 5:30 AM EDT [facility] ([facility]) CO2 22 21 - 31 mmol/L 11/03/2024 5:30 AM EDT [facility] ([facility]) BUN 6(L) 7 - 25 mg/dL 11/03/2024 5:30 AM EDT [facility] ([facility]) Creatinine 0.52(L) 0.60 - 1.20 mg/dL 11/03/2024 5:30 AM EDT [facility] ([facility]) Glucose 170(H) 70 - 100 mg/dL 11/03/2024 5:30 AM EDT [facility] ([facility]) Calcium 7.9(L) 8.6 - 10.3 mg/dL 11/03/2024 5:30 AM EDT [facility] ([facility]) Anion Gap 10 7 - 20 mmol/L 11/03/2024 5:30 AM EDT [facility] ([facility]) eGFR 124.2 >60.0 mL/min/1. 73m*2 11/03/2024 5:30 AM EDT [facility] ([facility]) Comment:[facility] s estimated glomerular filtration rate (eGFR) [...] BUN/Creatinine Ratio 11.5 10/16 5:30 AM EDT [facility] ([facility]) Blood Venous blood specimen / Unknown Existing Catheter / Unknown 11/03/2024 4:46 AM EDT 11/03/2024 4:58 AM EDT us Rosa Willoughby PA-C LAB BLOOD ORDERABLES Final R esult [facility] ([facility]) [address] [place] [address] * (ABNORMAL) CBC (11/03/2024 4:46 AM EDT) Auto WBC 6.23 4.00 - 10.60 10*3/uL 11/03/2024 5:09 AM EDT [facility] ([facility]) RBC 3.23(L) 3.80 - 5.00 10*6/uL 11/03/2024 5:09 AM EDT [facility] ([facility]) Hemoglobin 9.5(L) 12.0 - 15.0 g/dL 11/03/2024 5:09 AM EDT [facility] ([facility]) Hematocrit 28.7(L) 36.0 - 45.0 % 11/03/2024 5:09 AM EDT [facility] ([facility]) MCV 88.9 82.0 - 98.0 fL 11/03/2024 5:09 AM EDT [facility] ([facility]) MCH 29.4 27.0 - 33.0 pg 11/03/2024 5:09 AM EDT [facility] ([facility]) MCHC 33.1 32.0 - 35.0 g/dL 11/03/2024 5:09 AM EDT [facility] ([facility]) RDW 13.6 11.5 - 15.0 % 11/03/2024 5:09 AM EDT [facility] ([facility]) Platelets 248 150 - 400 10*3/uL 11/03/2024 5:09 AM EDT [facility] ([facility]) Blood Venous blood specimen / Unknown Existing Catheter / Unknown 11/03/2024 4:46 AM EDT 11/03/2024 4:58 AM EDT us Rosa Willoughby PA-C LAB BLOOD ORDERABLES Final R esult [facility] ([facility]) [address] [place] [address] * Calcium, ionized (11/03/2024 4:46 AM EDT) Calcium, Ion 1.16 1.15 - 1.33 mmol/L 11/03/2024 5:32 AM EDT [facility] Blood Venous blood specimen / Unknown Existing Catheter / Unknown 11/03/2024 4:46 AM EDT 11/03/2024 5:20 AM EDT us Rosa Willoughby PA-C LAB BLOOD ORDERABLES Final R esult Performing Organization Address City/[facility]/ZIP Co de Phone Number [facility] [address] [place] [address], [place] * (ABNORMAL) INTEM C (11/03/2024 1:58 AM EDT) INTEM C CLOTTING TIME 169 139 - 205 s 11/03/2024 1:58 AM EDT [facility] INTEM C AMPLITUDE 5 MIN 48 36 - 54 mm 11/03/2024 1:58 AM EDT [facility] INTEM C AMPLITUDE 10 MIN 57 46 - 63 mm 11/03/2024 1:58 AM EDT [facility] INTEM C AMPLITUDE 20 MIN 63 53 - 68 mm 11/03/2024 1:58 AM EDT [facility] INTEM C MAXIMUM CLOT FIRMNESS 63 55 - 70 mm 11/03/2024 1:58 AM EDT [facility] INTEM C LYSIS INDEX 60 MIN 95 93 - 100 % 11/03/2024 1:58 AM EDT [facility] INTEM C MAXIMUM LYSIS 12(H) 0 - 7 % 11/03/2024 1:58 AM EDT [facility] Comment:[place]^Preliminary Resul t Blood 11/03/2024 1:58 AM EDT 11/03/2024 1:58 AM EDT us Ky Ritter MD LAB BLOOD ORDERABLES Final Re sult Performing Organization Address City/[facility]/ZIP Co de Phone Number [facility] [address] [place] [address], [place] * HEPTEM C (11/03/2024 1:58 AM EDT) HEPTEM C CLOTTING TIME 168 141 - 215 s 11/03/2024 1:58 AM EDT [facility] HEPTEM C AMPLITUDE 5 MIN 46 33 - 51 mm 11/03/2024 1:58 AM EDT [facility] HEPTEM C AMPLITUDE 10 MIN 56 44 - 61 mm 11/03/2024 1:58 AM EDT [facility] HEPTEM C AMPLITUDE 20 MIN 62 52 - 67 mm 11/03/2024 1:58 AM EDT [facility] HEPTEM C MAXIMUM CLOT FIRMNESS 63 54 - 69 mm 11/03/2024 1:58 AM EDT [facility] Blood 11/03/2024 1:58 AM EDT 11/03/2024 1:58 AM EDT us Ky Ritter MD LAB BLOOD ORDERABLES Final Re sult [facility] [address] [place] [address], [place] * (ABNORMAL) EXTEM C (11/03/2024 1:58 AM EDT) EXTEM C CLOTTING TIME 51 51 - 73 s 11/03/2024 1:58 AM EDT [facility] EXTEM C AMPLITUDE 5 MIN 52 33 - 52 mm 11/03/2024 1:58 AM EDT [facility] EXTEM C AMPLITUDE 10 MIN 61 45 - 62 mm 11/03/2024 1:58 AM EDT [facility] EXTEM C AMPLITUDE 20 MIN 67 54 - 69 mm 11/03/2024 1:58 AM EDT [facility] EXTEM C MAXIMUM CLOT FIRMNESS 68 57 - 72 mm 11/03/2024 1:58 AM EDT [facility] EXTEM C LYSIS INDEX 60 MIN 96 94 - 100 % 11/03/2024 1:58 AM EDT [facility] EXTEM C MAXIMUM LYSIS 10(H) 0 - 6 % 11/03/2024 1:58 AM EDT [facility] Comment:MN^Preliminary Resul t Blood 11/03/2024 1:58 AM EDT 11/03/2024 1:58 AM EDT Ky Ritter MD LAB BLOOD ORDERABLES Final Re sult Performing Organization Address [facility] Co de Phone Number [facility] [address] [place] [id number], [place] * FIBTEM C (11/03/2024 1:58 AM EDT) FIBTEM C AMPLITUDE 5 MIN 12 5 - 16 mm 11/03/2024 1:58 AM EDT [facility] FIBTEM C AMPLITUDE 10 MIN 13 6 - 17 mm 11/03/2024 1:58 AM EDT [facility] FIBTEM C AMPLITUDE 20 MIN 14 6 - 18 mm 11/03/2024 1:58 AM EDT [facility] FIBTEM C MAXIMUM CLOT FIRMNESS 15 6 - 19 mm 11/03/2024 1:58 AM EDT [facility] Blood 11/03/2024 1:58 AM EDT 11/03/2024 1:58 AM EDT yK Ritter MD LAB BLOOD ORDERABLES Final Re sult Performing Organization Address [facility] Co de Phone Number [facility] [address] [place] [id number], [place] * (ABNORMAL) CBC (11/03/2024 12:07 AM EDT) Auto WBC 7.71 4.00 - 10.60 10*3/uL 11/03/2024 12:41 AM EDT [facility] ([facility]) RBC 3.26(L) 3.80 - 5.00 10*6/uL 11/03/2024 12:41 AM EDT [facility] ([facility]) Hemoglobin 9.7(L) 12.0 - 15.0 g/dL 11/03/2024 12:41 AM EDT [facility] ([facility]) Hematocrit 29.0(L) 36.0 - 45.0 % 11/03/2024 12:41 AM EDT [facility] ([facility]) MCV 89.0 82.0 - 98.0 fL 11/03/2024 12:41 AM EDT [facility] ([facility]) MCH 29.8 27.0 - 33.0 pg 11/03/2024 12:41 AM EDT [facility] ([facility]) MCHC 33.4 32.0 - 35.0 g/dL 11/03/2024 12:41 AM EDT [facility] ([facility]) RDW 13.3 11.5 - 15.0 % 11/03/2024 12:41 AM EDT [facility] ([facility]) Platelets 216 150 - 400 10*3/uL 11/03/2024 12:41 AM EDT [facility] ([facility]) Blood Venous blood specimen / Unknown Existing Catheter / Unknown 11/03/2024 12:07 AM EDT 11/03/2024 12:33 AM EDT us Rosa Willoughby PA-C LAB BLOOD ORDERABLES Final R esult [facility]) [address] [id number] * Phosphorus (11/03/2024 12:07 AM EDT) Phosphorus 2.7 2.5 - 5.0 mg/dL 11/03/2024 12:57 AM EDT [facility] ([facility]) Blood Venous blood specimen / Unknown Existing Catheter / Unknown 11/03/2024 12:07 AM EDT 11/03/2024 12:33 AM EDT us Rosa Willoughby PA-C LAB BLOOD ORDERABLES Final R esult [facility]) [address] [id number] * (ABNORMAL) Magnesium (11/03/2024 12:07 AM EDT) Magnesium 1.5(L) 1.9 - 2.7 mg/dL 11/03/2024 12:57 AM EDT [facility] ([facility]) Blood Venous blood specimen / Unknown Existing Catheter / Unknown 11/03/2024 12:07 AM EDT 11/03/2024 12:33 AM EDT us Rosa Willoughby PA-C LAB BLOOD ORDERABLES Final R esult [facility] ([facility]) [address] [place] [address] * (ABNORMAL) Basic metabolic panel (11/03/2024 12:07 AM EDT) Sodium 135(L) 136 - 145 mmol/L 11/03/2024 12:57 AM EDT [facility] ([facility]) Potassium 4.9 3.5 - 5.1 mmol/L 11/03/2024 12:57 AM EDT [facility] ([facility]) Chloride 110(H) 98 - 107 mmol/L 11/03/2024 12:57 AM EDT [facility] ([facility]) CO2 20(L) 21 - 31 mmol/L 11/03/2024 12:57 AM EDT [facility] ([facility]) BUN 8 7 - 25 mg/dL 11/03/2024 12:57 AM EDT [facility] ([facility]) Creatinine 0.53(L) 0.60 - 1.20 mg/dL 11/03/2024 12:57 AM EDT [facility] ([facility]) Glucose 168(H) 70 - 100 mg/dL 11/03/2024 12:57 AM EDT [facility] ([facility]) Calcium 7.6(L) 8.6 - 10.3 mg/dL 11/03/2024 12:57 AM EDT [facility] ([facility]) Anion Gap 10 7 - 20 mmol/L 11/03/2024 12:57 AM EDT [facility] ([facility]) eGFR 123.6 >60.0 mL/min/1. 73m*2 11/03/2024 12:57 AM EDT [facility] ([facility]) Comment:[facility] s estimated glomerular filtration rate (eGFR) [...] BUN/Creatinine Ratio 15.1 10/16 12:57 AM EDT [facility] ([facility]) Blood Venous blood specimen / Unknown Existing Catheter / Unknown 11/03/2024 12:07 AM EDT 11/03/2024 12:33 AM EDT us Rosa Willoughby PA-C LAB BLOOD ORDERABLES Final R esult [facility]) [address] [place] [address] * Fibrinogen (11/03/2024 12:07 AM EDT) Fibrinogen 328 150 - 425 mg/dL 11/03/2024 12:[address] [facility]) Blood Venous blood specimen / Unknown Existing Catheter / Unknown 11/03/2024 12:07 AM EDT 11/03/2024 12:27 AM EDT us Jose Angel Fox MD LAB BLOOD ORDERABLES Final Resu lt [facility]) [address] [place] [address] * (ABNORMAL) Protime-INR (11/03/2024 12:07 AM EDT) Protime 14.9(H) 12.3 - 14.8 Seconds 11/03/2024 12:53 AM EDT [facility]) INR 1.17(H) 0.90 - 1.10 11/03/2024 12:53 AM EDT [facility] ([facility]) Comment: ACCCP RECOMMENDED INR FOR [...] 11/03/2024 12:27 AM EDT us Jose Angel Fxo MD LAB BLOOD ORDERABLES Final Resu lt [facility]) [address] [place] [address] * (ABNORMAL) POCT glucose meter (11/02/2024 10:48 PM EDT) [facility] Glucose POC 151(H) 70 - 105 mg/dL 11/02/2024 10:59 PM EDT [facility] ([facility]) Comment:[email or web address] Blood Capillary blood specimen / Unknown 11/02/2024 10:48 PM EDT 11/02/2024 10:59 PM EDT Narrative [facility] ([facility]) - 11/02/2024 10:59 PM EDT Waived Testing in the ED is performed under the ED CLIA certificate #[id number]. us Ky Ritter MD LAB BLOOD ORDERABLES Final Re sult Performing Organization Address City/[facility]/ZIP Co de Phone Number [facility] ([facility]) [address] [place] [address] * Transfuse RBC (11/02/2024 9:35 PM EDT) Tarik PERRY BLOOD TRANSFUSION ORDERABLES Fi nal Result * Transfuse RBC (11/02/2024 9:32 PM EDT) Tarik PERRY BLOOD TRANSFUSION ORDERABLES Fi nal Result * (ABNORMAL) POCT glucose meter (11/02/2024 8:30 PM EDT) Glucose POC 160(H) 70 - 105 mg/dL 11/02/2024 8:41 PM EDT [facility] ([facility]) Comment:[email or web address] Blood Capillary blood specimen / Unknown 11/02/2024 8:30 PM EDT 11/02/2024 8:41 PM EDT Narrative [facility] ([facility]) - 11/02/2024 8:41 PM EDT Waived Testing in the ED is performed under the ED CLIA certificate #[id number]. Ky Ritter MD LAB BLOOD ORDERABLES Final Re sult Performing Organization Address City/[facility]/ZIP Co de Phone Number [facility] ([facility]) [address] [place] [address] * Prepare RBC: 1 Units (11/02/2024 8:05 PM EDT) PRODUCT CODE [id number] [facility] Unit Number [id number] [facility] Unit ABO O [facility] Unit Rh POS [facility] Crossmatch Interpretation COMP [facility] Dispense Status TR [facility] Blood Expiration Date [facility] Product Blood Type 5100 [facility] Unit Volume 300 ML [facility] OD [facility] Other 11/02/2024 8:05 PM EDT Tomasa Disla MD BLOOD BANK PRODUCT ORDER JIN Final Result [facility] * Prepare RBC: 2 Units (11/02/2024 8:05 PM EDT) PRODUCT CODE [id number] [facility] Unit Number [id number] [facility] BLOOD [facility] Unit ABO O [facility] Unit Rh POS [facility] Crossmatch Interpretation COMP [facility] Dispense Status TR [facility] Blood Expiration Date [facility] Product Blood Type 5100 [facility] Unit Volume 300 ML [facility] PRODUCT CODE [id number] [facility] Unit Number [id number] [facility] BLOOD [facility] Unit ABO O [facility] Unit Rh POS [facility] Crossmatch Interpretation COMP [facility] Dispense Status TR [facility] Blood Expiration Date [facility] Product Blood Type 5100 [facility] Other 11/02/2024 8:05 PM EDT Wali Collins MD BLOOD BANK PRODUCT ORDERAB LES Final Result [facility] * Type and screen (11/02/2024 8:02 PM EDT) ABO Grouping O 11/02/2024 8:42 PM EDT [facility] Rh Type POS 11/02/2024 8:42 PM EDT [facility] Ab Scrn NEG 11/02/2024 8:42 PM EDT [facility] Blood Venous blood specimen / Unknown Existing Catheter / Unknown 11/02/2024 8:02 PM EDT 11/02/2024 8:02 PM EDT Wali Collins MD LAB BLOOD BANK TEST ORDERA BLES Final Result [facility] * (ABNORMAL) CBC (11/02/2024 8:02 PM EDT) Auto WBC 9.01 4.00 - 10.60 10*3/uL 11/02/2024 8:13 PM EDT [facility] ([facility]) RBC 3.18(L) 3.80 - 5.00 10*6/uL 11/02/2024 8:13 PM EDT [facility] ([facility]) Hemoglobin 9.4(L) 12.0 - 15.0 g/dL 11/02/2024 8:13 PM EDT [facility] ([facility]) Hematocrit 28.9(L) 36.0 - 45.0 % 11/02/2024 8:13 PM EDT [facility] ([facility]) MCV 90.9 82.0 - 98.0 fL 11/02/2024 8:13 PM EDT [facility] ([facility]) MCH 29.6 27.0 - 33.0 pg 11/02/2024 8:13 PM EDT [facility] ([facility]) MCHC 32.5 32.0 - 35.0 g/dL 11/02/2024 8:13 PM EDT [facility] ([facility]) RDW 13.2 11.5 - 15.0 % 11/02/2024 8:13 PM EDT [facility] ([facility]) Platelets 358 150 - 400 10*3/uL 11/02/2024 8:13 PM EDT [facility] ([facility]) Blood Venous blood specimen / Unknown Existing Catheter / Unknown 11/02/2024 8:02 PM EDT 11/02/2024 8:02 PM EDT us Wali Collins MD LAB BLOOD ORDERABLES Final Result [facility] ([facility]) [address] [place] [address] * Red Top (11/02/2024 8:00 PM EDT) Extra Tube Hold for add-ons. 11/02/2024 10:02 PM EDT [facility] ([facility]) Comment:Auto resulted. Blood Venous blood specimen / Unknown 11/02/2024 8:00 PM EDT 11/02/2024 8:19 PM EDT us Ky Ritter MD LAB BLOOD ORDERABLES Final Re sult [facility] ([facility]) [address] [place], [place] [id number] * (ABNORMAL) Activated clotting time (11/02/2024 4:43 PM EDT) Activated Clotting Time 176(H) 82 - 152 s 11/02/2024 5:54 PM EDT [facility] ([facility]) Blood Venous blood specimen / Unknown 11/02/2024 4:43 PM EDT 11/02/2024 5:54 PM EDT us Ky Ritter MD LAB POINT OF CARE TE ST DOCKED DEVICE UNSOLICITED RESULTS Final Result Performing Organization Address [facility] Co de Phone Number [facility]) [address] [place] [address] * (ABNORMAL) POCT activated clotting time manually [...] - 152 s 11/02/2024 5:54 PM EDT [facility] ([facility]) Blood Venous blood specimen / Unknown 11/02/2024 4:13 PM EDT 11/02/2024 5:54 PM EDT us Ky Ritter MD LAB POINT OF CARE TE ST DOCKED DEVICE UNSOLICITED RESULTS Final Result Performing Organization Address [facility] Co de Phone Number [facility]) [address] [place], [place] [id number] * (ABNORMAL) Activated clotting time (11/02/2024 2:56 PM EDT) Activated Clotting Time 227(H) 82 - 152 s 11/02/2024 3:02 PM EDT [facility] ([facility]) Blood Venous blood specimen / Unknown 11/02/2024 2:56 PM EDT 11/02/2024 3:02 PM EDT us Ky Ritter MD LAB POINT OF CARE TE ST DOCKED DEVICE UNSOLICITED RESULTS Final Result Performing Organization Address City/[facility]/ZIP Co de Phone Number [facility] ([facility]) [address] [place] [address] * CORONARY ANGIOGRAPHY, ULTRASOUND - CORONARY, INSTANT [...] infiltrated over the right femoral artery. A 6-[place] sheath was placed in right femoral artery. Coronary angiography was performed with a JL4 and then repeated after IC nitroglycerin 50 mcg x 2. At this time, it was apparent that the LAD had a moderate stenosis and IVUS and iFR were performed. Heparin anticoagulation was used for this procedure. ACT was maintained at >250 seconds. A 6 [place] xb3 was engaged to the [place]. I [...] - 152 s 11/02/2024 2:28 PM EDT [facility] ([facility]) Blood Venous blood specimen / Unknown 11/02/2024 2:24 PM EDT 11/02/2024 2:28 PM EDT Ky Ritter MD LAB POINT OF CARE TE ST DOCKED DEVICE UNSOLICITED RESULTS Final Result [facility] ([facility]) [address] [place] [address] * ECG 12 lead (11/02/2024 1:18 PM EDT) Ventricular Rate 74 BPM GE MUSE Atrial Rate 74 BPM GE MUSE MN Interval 138 ms GE MUSE QRS DURATION 84 ms GE MUSE QT Interval 454 ms GE MUSE QTC CALCULATION(BAZE TT) 503 ms GE MUSE P [place] 54 degrees GE MUSE R-[place] 41 degrees GE MUSE T Wave [place] 77 degrees GE MUSE 11/02/2024 1:02 PM [...] ECG ORDERABLES Final Result Performing Organization Address City/[facility]/ZIP Co de Phone Number SABIHA GARCIA * (ABNORMAL) High Sensitivity Troponin I (11/02/2024 1:01 PM EDT) High Sensitivity Troponin I 47(H) <15 ng/L 11/02/2024 1:57 PM EDT [facility] ([facility]) Blood Venous blood specimen / Unknown Existing Catheter / Unknown 11/02/2024 1:01 PM EDT 11/02/2024 1:19 PM EDT us Ky Ritter MD LAB BLOOD ORDERABLES Final Re sult Performing Organization Address [facility] Co de Phone Number [facility]) [address] [place] [address] * (ABNORMAL) POCT glucose meter (11/02/2024 11:07 AM EDT) Glucose POC 115(H) 70 - 105 mg/dL 11/02/2024 11:[address] [facility]) Comment:[email or web address] Blood Capillary blood specimen / Unknown 11/02/2024 11:07 AM EDT 11/02/2024 11:18 AM EDT Narrative [facility]) - 11/02/2024 11:18 AM EDT Waived Testing in the ED is performed under the ED CLIA certificate #[id number]. us Ky Ritter MD LAB BLOOD ORDERABLES Final Re sult Performing Organization Address [facility] Co de Phone Number [facility]) [address] [place] [address] * (ABNORMAL) POCT glucose meter (11/02/2024 7:31 AM EDT) Glucose POC 150(H) 70 - 105 mg/dL 11/02/2024 7:42 AM EDT [facility] ([facility]) Comment:[email or web address] Blood Capillary blood specimen / Unknown 11/02/2024 7:31 AM EDT 11/02/2024 7:42 AM EDT Narrative [facility] ([facility]) - 11/02/2024 7:42 AM EDT Waived Testing in the ED is performed under the ED CLIA certificate #[id number]. Ky Ritter MD LAB BLOOD ORDERABLES Final Re sult Performing Organization Address City/[facility]/ZIP Co de Phone Number [facility]) [address] [place] [address] * Light Green Top (11/02/2024 6:15 AM EDT) Extra Tube Hold for add-ons. 11/02/2024 8:01 AM EDT [facility]) Comment:Auto resulted. Blood Venous blood specimen / Unknown Existing Catheter / Unknown 11/02/2024 6:15 AM EDT 11/02/2024 6:38 AM EDT Ky Ritter MD LAB BLOOD ORDERABLES Final Re sult [facility]) [address] [place] [address] * (ABNORMAL) CBC (11/02/2024 6:15 AM EDT) Auto WBC 4.49 4.00 - 10.60 10*3/uL 11/02/2024 7:18 AM EDT [facility]) RBC 3.69(L) 3.80 - 5.00 10*6/uL 11/02/2024 7:18 AM EDT [facility] ([facility]) Hemoglobin 10.8(L) 12.0 - 15.0 g/dL 11/02/2024 7:18 AM EDT [facility] ([facility]) Hematocrit 33.3(L) 36.0 - 45.0 % 11/02/2024 7:18 AM EDT [facility] ([facility]) MCV 90.2 82.0 - 98.0 fL 11/02/2024 7:18 AM EDT [facility] ([facility]) MCH 29.3 27.0 - 33.0 pg 11/02/2024 7:18 AM EDT [facility] ([facility]) MCHC 32.4 32.0 - 35.0 g/dL 11/02/2024 7:18 AM EDT [facility] ([facility]) RDW 13.4 11.5 - 15.0 % 11/02/2024 7:18 AM EDT [facility] ([facility]) Platelets 292 150 - 400 10*3/uL 11/02/2024 7:18 AM EDT [facility] ([facility]) Blood Venous blood specimen / Unknown 11/02/2024 6:15 AM EDT 11/02/2024 6:37 AM EDT us Debbie Luna CNP LAB BLOOD ORDERABLES Final Resu lt [facility]) [address] [place] [address] * (ABNORMAL) POCT glucose meter (11/01/2024 8:42 PM EDT) [facility] Signature Glucose POC 106(H) 70 - 105 mg/dL 11/01/2024 8:54 PM EDT [facility] ([facility]) Comment:[email or web address] Blood Capillary blood specimen / Unknown 11/01/2024 8:42 PM EDT 11/01/2024 8:54 PM EDT Narrative [facility]) - 11/01/2024 8:54 PM EDT Waived Testing in the ED is performed under the ED CLIA certificate #[id number]. us Ky Ritter MD LAB BLOOD ORDERABLES Final Re sult Performing Organization Address City/[facility]/ZIP Co de Phone Number [facility]) [address] [place] [address] * POCT glucose meter (11/01/2024 6:04 PM EDT) Glucose POC 102 70 - 105 mg/dL 11/01/2024 6:20 PM EDT [facility] ([facility]) Comment:[email or web address] Blood Capillary blood specimen / Unknown 11/01/2024 6:04 PM EDT 11/01/2024 6:20 PM EDT Narrative [facility] ([facility]) - 11/01/2024 6:20 PM EDT Waived Testing in the ED is performed under the ED CLIA certificate #[id number]. us Ky Ritter MD LAB BLOOD ORDERABLES Final Re sult [facility] ([facility]) [address] [place] [address] * (ABNORMAL) Activated clotting time (11/01/2024 4:36 PM EDT) Activated Clotting Time 160(H) 82 - 152 s 11/02/2024 12:11 PM EDT [facility] ([facility]) Blood Venous blood specimen / Unknown 11/01/2024 4:36 PM EDT 11/02/2024 12:11 PM EDT us Ky Ritter MD LAB POINT OF CARE TE ST DOCKED DEVICE UNSOLICITED RESULTS Final Result [facility] ([facility]) [address] [place] [address] * (ABNORMAL) POCT activated clotting time docked device (11/01/2024 4:33 PM EDT) Activated Clotting Time POC 160(A) 82 - 152 sec [facility] ([facility]) Blood 11/01/2024 4:33 PM EDT us Ky Ritter MD LAB POINT OF CARE TEST DOCKED DEVICE ORDERABLES Final Result [facility]) [address] [place], [place] [id number] * CORONARY ANGIOGRAPHY, ULTRASOUND - CORONARY (11/01/2024 [...] on TPN presents a direct admission from [facility] with chief complaint of chest [...] infiltrated over the right femoral artery. A 5-[place] Terumo sheath was placed in right femoral [...] was maintained at >250 seconds. A 5 [place] Cordis XB 3.0 guide was engaged to the left main. I decided to proceed with IVUS. I then advanced a [employer] wire to the distal left anterior descending. Next, I advanced a [employer] IVUS catheter. IVUS imaging was performed and [...] clotting time (11/01/2024 1:27 PM EDT) Pathologist [facility] [place] Activated Clotting Time 332(H) 82 - 152 s 11/01/2024 1:37 PM EDT [facility] ([facility]) Blood Venous blood specimen / Unknown 11/01/2024 1:27 PM EDT 11/01/2024 1:36 PM EDT us Ky Ritter MD LAB POINT OF CARE TE ST DOCKED DEVICE UNSOLICITED RESULTS Final Result [facility] ([facility]) [address] [place] [address] * (ABNORMAL) Activated clotting time (11/01/2024 1:14 PM EDT) Activated Clotting Time 222(H) 82 - 152 s 11/01/2024 1:19 PM EDT [facility] ([facility]) Blood Venous blood specimen / Unknown 11/01/2024 1:14 PM EDT 11/01/2024 1:19 PM EDT us Ky Ritter MD LAB POINT OF CARE TE ST DOCKED DEVICE UNSOLICITED RESULTS Final Result [facility] ([facility]) [address] [place] [address] * ECG 12 lead (11/01/2024 12:09 PM EDT) Ventricular Rate 76 BPM GE MUSE Atrial Rate 76 BPM GE MUSE MN Interval 132 ms GE MUSE QRS DURATION 84 ms GE MUSE QT Interval 444 ms GE MUSE QTC CALCULATION(BAZE TT) 499 ms GE MUSE P [place] 72 degrees GE MUSE R-[place] 50 degrees GE MUSE T Wave [place] 89 degrees GE MUSE 11/01/2024 11:5 7 [...] - 105 mg/dL 11/01/2024 12:44 PM EDT [facility] ([facility]) Comment:[email or web address] Blood Capillary blood specimen / Unknown 11/01/2024 11:30 AM EDT 11/01/2024 12:44 PM EDT Narrative [facility] ([facility]) - 11/01/2024 12:44 PM EDT Waived Testing in the ED is performed under the ED CLIA certificate #[id number]. us Ky Ritter MD LAB BLOOD ORDERABLES Final Re sult [facility] ([facility]) [address] [place] [address] * (ABNORMAL) Basic metabolic panel (11/01/2024 10:10 AM EDT) Pathologist [facility] [place] Sodium 137 136 - 145 mmol/L 11/01/2024 10:50 AM EDT [facility] ([facility]) Potassium 4.6 3.5 - 5.1 mmol/L 11/01/2024 10:50 AM EDT [facility] ([facility]) Chloride 106 98 - 107 mmol/L 11/01/2024 10:50 AM EDT [facility] ([facility]) CO2 27 21 - 31 mmol/L 11/01/2024 10:50 AM EDT [facility] ([facility]) BUN 9 7 - 25 mg/dL 11/01/2024 10:50 AM EDT [facility] ([facility]) Creatinine 0.53(L) 0.60 - 1.20 mg/dL 11/01/2024 10:50 AM EDT [facility] ([facility]) Glucose 98 70 - 100 mg/dL 11/01/2024 10:50 AM EDT [facility] ([facility]) Calcium 8.6 8.6 - 10.3 mg/dL 11/01/2024 10:50 AM EDT [facility] ([facility]) Anion Gap 9 7 - 20 mmol/L 11/01/2024 10:50 AM EDT [facility] ([facility]) eGFR 123.6 >60.0 mL/min/1. 73m*2 11/01/2024 10:50 AM EDT [facility] ([facility]) Comment:[facility] s estimated glomerular filtration rate (eGFR) [...] BUN/Creatinine Ratio 17.0 10/16 10:50 AM EDT [facility] ([facility]) Blood Venous blood specimen / Unknown Existing Catheter / Unknown 11/01/2024 10:10 AM EDT 11/01/2024 10:25 AM EDT Ky Ritter MD LAB BLOOD ORDERABLES Final Re sult [facility] ([facility]) [address] [place] [address] * (ABNORMAL) CBC (11/01/2024 10:10 AM EDT) Auto WBC 4.80 4.00 - 10.60 10*3/uL 11/01/2024 10:40 AM EDT [facility] ([facility]) RBC 3.87 3.80 - 5.00 10*6/uL 11/01/2024 10:40 AM EDT [facility] ([facility]) Hemoglobin 11.3(L) 12.0 - 15.0 g/dL 11/01/2024 10:40 AM EDT [facility] ([facility]) Hematocrit 34.6(L) 36.0 - 45.0 % 11/01/2024 10:40 AM EDT [facility] ([facility]) MCV 89.4 82.0 - 98.0 fL 11/01/2024 10:40 AM EDT [facility] ([facility]) MCH 29.2 27.0 - 33.0 pg 11/01/2024 10:40 AM EDT [facility] ([facility]) MCHC 32.7 32.0 - 35.0 g/dL 11/01/2024 10:40 AM EDT [facility] ([facility]) RDW 13.2 11.5 - 15.0 % 11/01/2024 10:40 AM EDT [facility]) Platelets 300 150 - 400 10*3/uL 11/01/2024 10:40 AM EDT [facility] ([facility]) Blood Venous blood specimen / Unknown Existing Catheter / Unknown 11/01/2024 10:10 AM EDT 11/01/2024 10:25 AM EDT Ky Ritter MD LAB BLOOD ORDERABLES Final Re sult Performing Organization Address City/[facility]/ZIP Co de Phone Number [facility]) [address] [place] [address] * (ABNORMAL) POCT glucose meter (11/01/2024 7:43 AM EDT) [facility] Glucose POC 162(H) 70 - 105 mg/dL 11/01/2024 7:55 AM EDT [facility] ([facility]) Comment:[email or web address] Blood Capillary blood specimen / Unknown 11/01/2024 7:43 AM EDT 11/01/2024 7:55 AM EDT Narrative [facility] ([facility]) - 11/01/2024 7:55 AM EDT Waived Testing in the ED is performed under the ED CLIA certificate #[id number]. us Ky Ritter MD LAB BLOOD ORDERABLES Final Re sult [facility]) [address] [place] [address] * (ABNORMAL) High Sensitivity Troponin I (11/01/2024 6:42 AM EDT) [facility] High Sensitivity Troponin I 19(H) <15 ng/L 11/01/2024 7:02 AM EDT [facility] ([facility]) Blood Venous blood specimen / Unknown Existing Catheter / Unknown 11/01/2024 6:42 AM EDT 11/01/2024 6:42 AM EDT Debbie Mahmoodcarlee [employer] LAB BLOOD ORDERABLES Final Resu lt Performing Organization Address City/[facility]/ZIP Co de Phone Number [facility]) [address] [place] [address] * (ABNORMAL) Anti-Xa (Heparin Level) (11/01/2024 6:04 AM EDT) [facility] Anti-Xa (Heparin) 0.27(L) 0.3 - 0.7 IU/mL 11/01/2024 6:[address] [facility]) Comment:Rivaroxaban and Apix aban will interfere with the anti Xa assay used to monitor UFH and LMWH. Blood Blood sample taken from central line / Unknown Existing Catheter / Unknown 11/01/2024 6:04 AM EDT 11/01/2024 6:15 AM EDT Ky Ritter MD LAB BLOOD ORDERABLES Final Re sult Performing Organization Address City/[facility]/ZIP Co de Phone Number [facility]) [address] [place] [address] * (ABNORMAL) POCT glucose meter (11/01/2024 6:02 AM EDT) [facility] Glucose POC 114(H) 70 - 105 mg/dL 11/01/2024 6:[address] [facility]) Comment:[email or web address] Blood Capillary blood specimen / Unknown 11/01/2024 6:02 AM EDT 11/01/2024 6:13 AM EDT Narrative [facility]) - 11/01/2024 6:13 AM EDT Waived Testing in the ED is performed under the ED CLIA certificate #[id number]. Ky Ritter MD LAB BLOOD ORDERABLES Final Re sult [facility] ([facility]) [address] [place] [address] * (ABNORMAL) Toxicology Screen, Urine (11/01/2024 2:12 AM EDT) Barbiturates Negative Negative 11/01/2024 2:57 AM EDT [facility] ([facility]) Benzodiazepines Positive(A) Negative 11/02/19 2:57 AM EDT [facility] ([facility]) Propoxyphene Negative Negative 11/01/2024 2:57 AM EDT [facility] ([facility]) Methadone Negative Negative 11/01/2024 2:57 AM EDT [facility] ([facility]) Tricyclics Negative Negative 11/01/2024 2:57 AM EDT [facility] ([facility]) Phencyclidine Negative Negative 11/01/2024 2:57 AM EDT [facility] ([facility]) Opiates Positive(A) Negative 11/01/2024 2:57 AM EDT [facility] ([facility]) Cocaine Negative Negative 11/01/2024 2:57 AM EDT [facility] ([facility]) Amphetamines/Metha mphetamine Negative Negative 11/01/2024 2:57 AM EDT [facility] ([facility]) Cannabinoid Negative Negative 11/01/2024 2:57 AM EDT [facility] ([facility]) Urine Urine specimen obtained by clean catch procedure / Unknown Non-blood Collection / Unknown 11/01/2024 2:12 AM EDT 11/01/2024 2:18 AM EDT Narrative [facility] ([facility]) - 11/01/2024 2:57 AM EDT Unconfirmed screening results should only be used for medical purposes. Ky Ritter MD LAB URINE ORDERABLES Final Re sult [facility] ([facility]) [address] [place] [address] * POCT glucose meter (10/31/2024 8:20 PM EDT) Glucose POC 90 70 - 105 mg/dL 10/31/2024 8:33 PM EDT [facility] ([facility]) Comment:[email or web address] Blood Capillary blood specimen / Unknown 10/31/2024 8:20 PM EDT 10/31/2024 8:33 PM EDT Narrative [facility] ([facility]) - 10/31/2024 8:33 PM EDT Waived Testing in the ED is performed under the ED CLIA certificate #[id number]. us Ky Ritter MD LAB BLOOD ORDERABLES Final Re sult [facility] ([facility]) [address] [place] [address] * CORONARY ANGIOGRAPHY, LEFT HEART CATH (10/31/2024 [...] informed consent. she was brought to the laborer [facility] in a fasting state. The left wrist area was prepped and draped in usual fashion. Micropuncture technique was used for access in the radial artery. A 5-[place] x 11 cm sheath was placed. Verapamil was given through the sheath, and heparin was administered intravenously. A 5 [place] JR4 diagnostic catheter was advanced and this [...] catheter was then downsized to a 4 [place] JR4 diagnostic catheter however this also was not able to engage the right coronary artery. Catheter was exchanged to a JR4 diagnostic catheter which could not engage the left coronary artery. Catheter was exchanged to a 4 [place] JL 3.5 diagnostic catheter which eventually was able to engage the left coronary artery. Angiography was performed in multiple views. Catheter was exchanged over the wire to a 4 [place] 3DRC catheter. Multiple attempts were made to [...] Study Details NSTEMI (non-ST elevated myocardial infarction) (CMS/HCC) [I21.4] us Ky Ritter MD CV CARDIAC CATH PROCEDURES Fi nal Result * POCT glucose meter (10/31/2024 11:55 AM EDT) Glucose POC 82 70 - 105 mg/dL 10/31/2024 12:06 PM EDT [facility] ([facility]) Comment:[email or web address] Blood Capillary blood specimen / Unknown 10/31/2024 11:55 AM EDT 10/31/2024 12:06 PM EDT Narrative [facility] ([facility]) - 10/31/2024 12:06 PM EDT Waived Testing in the ED is performed under the ED CLIA certificate #[id number]. us Ky Ritter MD LAB BLOOD ORDERABLES Final Re sult [facility] ([facility]) [address] [place] [address] * LIMITED ECHO (TTE) W/ COLOR FLOW AND IMAGING AGENT (10/31/2024 11:40 AM EDT) Anatomical Region Laterality Modality Other 10/31/2024 11:1 6 AM EDT Narrative 10/31/2024 12:44 PM EDT 1 [facility] Heart Station [address] [place] [address] [phone] (fax) Echocardiogram-[facility] Name: JUAN KONG Study Date: 10/31/2024 11:16 AM B/P: 106 mmHg/67 mmHg HR: 70 bpm Date of : 1990 Location: [facility] Height: 66 in. Age: 34 year(s) Patient Room: [facility]7 Weight: 181 lb. Gender: Female Patient Status: [...] Procedure Staff Reading Group: [facility] Color Mixer: DAVID Kearney, RDCS Ordering Physician: KY RITTER Wall Motion Scores -1 - hyperkinesia, 0 - not evaluated, 1 - normal, 2 - hypokinesia, 3 - akinesia, 4 - dyskinesia Procedure Note Mitul Moya MD - 10/31/2024 1 1 [facility] Heart Station [address] [id number] [phone] (fax) Echocardiogram-[facility] Name: JUAN KONG Study Date: 10/31/2024 11:16 AM B/P: 106 mmHg/67 mmHg HR: 70 bpm Date of : 1990 Location: [facility] Height: 66 in. Age: 34 year(s) [...] Procedure Staff Reading Group: [facility] Color Mixer: Raegan Cardona BS, RDCS Ordering Physician: [place] RITTER Wall Motion Scores -1 - hyperkinesia, 0 - not evaluated, 1 - normal, 2 - hypokinesia, 3 - akinesia, 4 - dyskinesia Ky Ritter MD CV ECHO PROCEDURES Final Resu lt * ECG 12 lead (10/31/2024 8:47 AM EDT) [facility] Ventricular Rate 69 BPM GE MUSE Atrial Rate 69 BPM GE MUSE MN Interval 146 ms GE MUSE QRS DURATION 86 ms GE MUSE QT Interval 460 ms GE MUSE QTC CALCULATION(BAZE TT) 492 ms GE MUSE P [place] 56 degrees GE MUSE R-[place] 55 degrees GE MUSE T Wave [place] 71 degrees GE MUSE 10/31/2024 8:43 AM [...] MUSE Atrial Rate 70 BPM GE MUSE MN Interval 148 ms GE MUSE QRS DURATION 86 ms GE MUSE QT Interval 460 ms GE MUSE QTC CALCULATION(BAZE TT) 496 ms GE MUSE P [place] 61 degrees GE MUSE R-[place] 59 degrees GE MUSE T Wave [place] 77 degrees GE MUSE 10/31/2024 8:15 AM [...] Katie Altamirano MD ECG ORDERABLES Final Result Performing Organization Address [facility] Co de Phone Number GE MUSE * POCT glucose meter (10/31/2024 7:22 AM EDT) Pathologist [facility] Glucose POC 87 70 - 105 mg/dL 10/31/2024 7:33 AM EDT [facility] ([facility]) Comment:[email or web address] Blood Capillary blood specimen / Unknown 10/31/2024 7:22 AM EDT 10/31/2024 7:33 AM EDT Narrative [facility] ([facility]) - 10/31/2024 7:33 AM EDT Waived Testing in the ED is performed under the ED CLIA certificate #[id number]. us Ky Ritter MD LAB BLOOD ORDERABLES Final Re sult Performing Organization Address City/[facility]/ZIP Co de Phone Number [facility] ([facility]) [address] [place] [address] * Hemoglobin A1c (10/31/2024 6:27 AM EDT) Pathologist [facility] Hemoglobin A1C 4.5 4.0 - 6.0 % 10/31/2024 1:13 PM EDT [facility] ([facility]) Estimated Average Glucose 82 mg/dL 10/31/2024 1:13 PM EDT [facility] ([facility]) Blood Blood sample taken from central line / Unknown Existing Catheter / Unknown 10/31/2024 6:27 AM EDT 10/31/2024 7:01 AM EDT Ky Ritter MD LAB BLOOD ORDERABLES Final Re sult Performing Organization Address [facility]/ZIP Co de Phone Number [facility] ([facility]) [address] [place] [address] * (ABNORMAL) Lipid panel (10/31/2024 6:27 AM EDT) Pathologist [facility] Triglycerides 84 <150 mg/dL 10/31/2024 9:31 AM EDT [facility] ([facility]) Comment: TRIGLYCERIDE REFERENCE RANGE: 20 YEARS AND OLDER CARDIOVASCULAR RISK LESS THAN 150 mg/dL LOW RISK 150 TO 199 mg/dL BORDERLINE RISK 200 mg/dL AND GREATER HIGH RISK Cholesterol 116(L) 120 - 200 mg/dL 10/31/2024 9:31 AM EDT [facility] ([facility]) LDL Calculated 56 0 - 160 mg/dL 10/31/2024 9:31 AM EDT [facility] ([facility]) HDL 43 23 - 92 mg/dL 10/31/2024 9:31 AM EDT [facility] ([facility]) Non HDL Cholesterol 73 10/31/2024 9:31 AM EDT [facility] ([facility]) Total VLDL-C 17 0 - 40 mg/dL 10/31/2024 9:31 AM EDT [facility] ([facility]) Cholesterol/HDL Ratio 2.7 mg/dL 10/31/2024 9:31 AM EDT [facility] ([facility]) Blood Blood sample taken from central line / Unknown Existing Catheter / Unknown 10/31/2024 6:27 AM EDT 10/31/2024 7:11 AM EDT Ky Ritter MD LAB BLOOD ORDERABLES Final Re sult [facility]) [address] [place] [address] * (ABNORMAL) Magnesium (10/31/2024 6:27 AM EDT) Magnesium 1.8(L) 1.9 - 2.7 mg/dL 10/31/2024 8:29 AM EDT [facility] ([facility]) Blood Blood sample taken from central line / Unknown Existing Catheter / Unknown 10/31/2024 6:27 AM EDT 10/31/2024 7:11 AM EDT Ky Ritter MD LAB BLOOD ORDERABLES Final Re sult Performing Organization Address City/[facility]/ZIP Co de Phone Number [facility]) [address] [place] [address] * Anti-Xa (Heparin Level) (10/31/2024 6:27 AM EDT) Anti-Xa (Heparin) 0.53 0.3 - 0.7 IU/mL 10/31/2024 7:27 AM EDT [facility] ([facility]) Comment:Rivaroxaban and Apix aban will interfere with the anti Xa assay used to monitor UFH and LMWH. Blood Blood sample taken from central line / Unknown Existing Catheter / Unknown 10/31/2024 6:27 AM EDT 10/31/2024 6:41 AM EDT us Sandeep Casey MD LAB BLOOD ORDERABLES Final Resul t [facility] ([facility]) [address] [place] [address] * (ABNORMAL) CBC (10/31/2024 6:27 AM EDT) Auto WBC 3.65(L) 4.00 - 10.60 10*3/uL 10/31/2024 7:19 AM EDT [facility] ([facility]) RBC 3.21(L) 3.80 - 5.00 10*6/uL 10/31/2024 7:19 AM EDT [facility] ([facility]) Hemoglobin 9.4(L) 12.0 - 15.0 g/dL 10/31/2024 7:19 AM EDT [facility] ([facility]) Hematocrit 29.2(L) 36.0 - 45.0 % 10/31/2024 7:19 AM EDT [facility] ([facility]) MCV 91.0 82.0 - 98.0 fL 10/31/2024 7:19 AM EDT [facility] ([facility]) MCH 29.3 27.0 - 33.0 pg 10/31/2024 7:19 AM EDT [facility] ([facility]) MCHC 32.2 32.0 - 35.0 g/dL 10/31/2024 7:19 AM EDT [facility] ([facility]) RDW 13.3 11.5 - 15.0 % 10/31/2024 7:19 AM EDT [facility] ([facility]) Platelets 235 150 - 400 10*3/uL 10/31/2024 7:19 AM EDT [facility] ([facility]) Blood Blood sample taken from central line / Unknown Existing Catheter / Unknown 10/31/2024 6:27 AM EDT 10/31/2024 7:01 AM EDT us Debbie Luna [facility] LAB BLOOD ORDERABLES Final Resu lt [facility]) [address] [place] [address] * (ABNORMAL) Basic metabolic panel (10/31/2024 6:27 AM EDT) Sodium 140 136 - 145 mmol/L 10/31/2024 7:52 AM T [facility] ([facility]) Potassium 4.0 3.5 - 5.1 mmol/L 10/31/2024 7:52 AM T [facility] ([facility]) Chloride 110(H) 98 - 107 mmol/L 10/31/2024 7:52 AM [facility] ([facility]) CO2 26 21 - 31 mmol/L 10/31/2024 7:52 AM [facility] ([facility]) BUN 5(L) 7 - 25 mg/dL 10/31/2024 7:52 AM [facility] ([facility]) Creatinine 0.60 0.60 - 1.20 mg/dL 10/31/2024 7:52 AM [facility] ([facility]) Glucose 83 70 - 100 mg/dL 10/31/2024 7:52 AM [facility] ([facility]) Calcium 7.7(L) 8.6 - 10.3 mg/dL 10/31/2024 7:52 AM [facility] ([facility]) Anion Gap 8 7 - 20 mmol/L 10/31/2024 7:52 AM [facility] ([facility]) eGFR 120.0 >60.0 mL/min/1. 73m*2 10/31/2024 7:52 AM [facility] ([facility]) Comment:[facility] s estimated glomerular filtration rate (eGFR) [...] individuals. BUN/Creatinine Ratio 8.3 10/16 7:52 AM [facility] ([facility]) Blood Blood sample taken from central line / Unknown Existing Catheter / Unknown 10/31/2024 6:27 AM EDT 10/31/2024 7:[address] [facility] BLOOD ORDERABLES Final Resu lt [facility] ([facility]) [address] [place] [address] * (ABNORMAL) High Sensitivity Troponin I (10/31/2024 6:27 AM EDT) [facility] High Sensitivity Troponin I 61(HH) <15 ng/L 10/31/2024 7:58 AM EDT [facility] ([facility]) Blood Blood sample taken from central line / Unknown Existing Catheter / Unknown 10/31/2024 6:27 AM EDT 10/31/2024 7:11 AM EDT Result [facility] LAB BLOOD ORDERABLES Final Resu lt Performing Organization Address City/[facility]/ZIP Co de Phone Number [facility] ([facility]) [address] [place] [address] * Anti-Xa (Heparin Level) (10/31/2024 1:38 AM EDT) [facility] Anti-Xa (Heparin) 0.47 0.3 - 0.7 IU/mL 10/31/2024 2:03 AM EDT [facility] ([facility]) Comment:Rivaroxaban and Apix aban will interfere with the anti Xa assay used to monitor UFH and LMWH. Blood Venous blood specimen / Unknown Existing Catheter / Unknown 10/31/2024 1:38 AM EDT 10/31/2024 1:42 AM EDT Sandeep Casey MD LAB BLOOD ORDERABLES Final Resul t [facility] ([facility]) [address] [place] [address] * (ABNORMAL) High Sensitivity Troponin I (10/31/2024 1:38 AM EDT) [facility] High Sensitivity Troponin I 129(HH) <15 ng/L 10/31/2024 2:33 AM EDT [facility] ([facility]) Blood Blood sample taken from central line / Unknown Existing Catheter / Unknown 10/31/2024 1:38 AM EDT 10/31/2024 1:44 AM EDT us Debbie Cheryl [facility] LAB BLOOD ORDERABLES Final Resu lt [facility] ([facility]) [address] [place] [address] * POCT glucose meter (10/30/2024 9:12 PM EDT) [facility] Glucose POC 97 70 - 105 mg/dL 10/30/2024 9:23 PM EDT [facility] ([facility]) Comment:[email or web address] Blood Capillary blood specimen / Unknown 10/30/2024 9:12 PM EDT 10/30/2024 9:23 PM EDT Narrative [facility]) - 10/30/2024 9:23 PM EDT Waived Testing in the ED is performed under the ED CLIA certificate #[id number]. us Sandeep Casey MD LAB BLOOD ORDERABLES Final Resul t Performing Organization Address [facility]/ZIP Co de Phone Number [facility]) [address] [place] [address] * ECG 12 lead (10/30/2024 8:00 PM EDT) [facility] Ventricular Rate 83 BPM GE MUSE Atrial Rate 83 BPM GE MUSE MN Interval 144 ms GE MUSE QRS DURATION 88 ms GE MUSE QT Interval 410 ms GE MUSE QTC CALCULATION(BAZE TT) 482 ms GE MUSE P [place] 62 degrees GE MUSE R-[place] 19 degrees GE MUSE T Wave [place] 56 degrees GE MUSE 10/30/2024 7:48 PM [...] (102) on 10/31/2024 9:14:03 PM Debbie Luna [employer] ECG ORDERABLES Final Result Performing Organization Address City/[facility]/ZIP Co de Phone Number [facility] * (ABNORMAL) Anti-Xa (Heparin Level) (10/30/2024 7:11 PM EDT) Anti-Xa (Heparin) <0.10(LL) 0.3 - 0.7 IU/mL 10/30/2024 8:27 PM EDT [facility] ([facility]) Comment:Rivaroxaban and Apix aban will interfere with the anti Xa assay used to monitor UFH and LMWH. Blood Venous blood specimen / Unknown Existing Catheter / Unknown 10/30/2024 7:11 PM EDT 10/30/2024 7:18 PM EDT Sandeep Casey MD LAB BLOOD ORDERABLES Final Resul t [facility] [address] [place] [address] * (ABNORMAL) aPTT - baseline (10/30/2024 7:11 PM EDT) aPTT 42.0(H) 25.0 - 35.0 Seconds 10/30/2024 7:48 PM EDT [facility] ([facility]) Comment:Clinical significanc e of the APTT is questionable in the presence of heparin. Blood Venous blood specimen / Unknown Existing Catheter / Unknown 10/30/2024 7:11 PM EDT 10/30/2024 7:18 PM EDT [facility] LAB BLOOD ORDERABLES Final Resu lt [facility] ([facility]) [address] [place] [address] * TSH3 Reflex to FT4 (10/30/2024 7:11 PM EDT) Pathologist [facility] TSH 3.46 0.34 - 5.60 mIU/L 10/30/2024 8:01 PM EDT [facility] ([facility]) Blood Venous blood specimen / Unknown Existing Catheter / Unknown 10/30/2024 7:11 PM EDT 10/30/2024 7:18 PM EDT [facility] LAB BLOOD ORDERABLES Final Resu lt [facility] ([facility]) [address] [place] [address] * (ABNORMAL) CBC auto differential (10/30/2024 7:11 PM EDT) Pathologist [facility] Auto WBC 4.32 4.00 - 10.60 10*3/uL 10/30/2024 7:51 PM EDT [facility] ([facility]) RBC 3.30(L) 3.80 - 5.00 10*6/uL 10/30/2024 7:51 PM EDT [facility] ([facility]) Hemoglobin 9.7(L) 12.0 - 15.0 g/dL 10/30/2024 7:51 PM EDT [facility] ([facility]) Hematocrit 29.6(L) 36.0 - 45.0 % 10/30/2024 7:51 PM EDT [facility] ([facility]) MCV 89.7 82.0 - 98.0 fL 10/30/2024 7:51 PM EDT [facility] ([facility]) MCH 29.4 27.0 - 33.0 pg 10/30/2024 7:51 PM EDT [facility] ([facility]) MCHC 32.8 32.0 - 35.0 g/dL 10/30/2024 7:51 PM EDT [facility] ([facility]) RDW 13.4 11.5 - 15.0 % 10/30/2024 7:51 PM EDT [facility] ([facility]) Neutrophils % 44.2 40.0 - 72.0 % 10/30/2024 7:51 PM EDT [facility] ([facility]) Lymphocytes % 44.9 20.0 - 45.0 % 10/30/2024 7:51 PM EDT [facility] ([facility]) Monocytes % 7.9 5.0 - 12.0 % 10/30/2024 7:51 PM EDT [facility] ([facility]) Eosinophils % 2.1 0.0 - 6.0 % 10/30/2024 7:51 PM EDT [facility] ([facility]) Basophils % 0.9 0.0 - 1.0 % 10/30/2024 7:51 PM EDT [facility] ([facility]) Neutrophils Absolute 1.91 1.60 - 7.60 10*3/uL 10/30/2024 7:51 PM EDT [facility] ([facility]) Lymphocytes Absolute 1.94 1.20 - 4.00 10*3/uL 10/30/2024 7:51 PM EDT [facility] ([facility]) Monocytes Absolute 0.34 0.10 - 1.00 10*3/uL 10/30/2024 7:51 PM EDT [facility] ([facility]) Eosinophils Absolute 0.09 0.00 - 0.50 10*3/uL 10/30/2024 7:51 PM EDT [facility] ([facility]) Basophils Absolute 0.04 0.00 - 0.20 10*3/uL 10/30/2024 7:51 PM EDT [facility] ([facility]) Platelets 272 150 - 400 10*3/uL 10/30/2024 7:51 PM EDT [facility] ([facility]) nRBC % 0.0 0 % 10/30/2024 7:51 PM EDT [facility] ([facility]) Immature Granulocytes % 0.0 0.0 - 1.0 % 10/30/2024 7:51 PM EDT [facility] ([facility]) Immature Granulocytes Absolute 0.00 0.00 - 0.20 10*3/uL 10/30/2024 7:51 PM EDT [facility] ([facility]) Blood Venous blood specimen / Unknown Existing Catheter / Unknown 10/30/2024 7:11 PM EDT 10/30/2024 7:[address] [facility] BLOOD ORDERABLES Final Resu lt Performing Organization Address City/[facility]/ZIP Co de Phone Number [facility]) [address] [place] [address] * B-type natriuretic peptide (10/30/2024 7:11 PM EDT) BNP 77 0 - 100 pg/mL 10/30/2024 7:49 PM EDT [facility]) Blood Venous blood specimen / Unknown Existing Catheter / Unknown 10/30/2024 7:11 PM EDT 10/30/2024 7:18 PM EDT [facility] LAB BLOOD ORDERABLES Final Resu lt Performing Organization Address City/[facility]/ZIP Co de Phone Number [facility]) [address] [place] [address] * (ABNORMAL) Protime-INR (10/30/2024 7:11 PM EDT) Protime 14.8 12.3 - 14.8 Seconds 10/30/2024 7:47 PM EDT [facility]) INR 1.15(H) 0.90 - 1.10 10/30/2024 7:47 PM EDT [facility] ([facility]) Comment: [facility] RECOMMENDED INR FOR [...] 7:11 PM EDT 10/30/2024 7:18 PM EDT [facility] LAB BLOOD ORDERABLES Final Resu lt Performing Organization Address City/[facility]/ZIP Co de Phone Number [facility]) [address] [place] [address] * Phosphorus (10/30/2024 7:11 PM EDT) [facility] Phosphorus 4.4 2.5 - 5.0 mg/dL 10/30/2024 7:46 PM EDT [facility]) Blood Venous blood specimen / Unknown Existing Catheter / Unknown 10/30/2024 7:11 PM EDT 10/30/2024 7:18 PM EDT [facility] LAB BLOOD ORDERABLES Final Resu lt [facility]) [address] [place] [address] * (ABNORMAL) HIGH SENSITIVITY TROPONIN I (10/30/2024 7:11 PM EDT) [facility] High Sensitivity Troponin I 337(HH) <15 ng/L 10/30/2024 7:53 PM EDT [facility] ([facility]) Blood Venous blood specimen / Unknown Existing Catheter / Unknown 10/30/2024 7:11 PM EDT 10/30/2024 7:[address] [facility] BLOOD ORDERABLES Final Resu lt [facility] ([facility]) [address] [place] [address] * (ABNORMAL) Magnesium (10/30/2024 7:11 PM EDT) Magnesium 1.7(L) 1.9 - 2.7 mg/dL 10/30/2024 7:46 PM EDT [facility] ([facility]) Blood Venous blood specimen / Unknown Existing Catheter / Unknown 10/30/2024 7:11 PM EDT 10/30/2024 7:[address] [facility] BLOOD ORDERABLES Final Resu lt Performing Organization Address City/[facility]/ZIP Co de Phone Number [facility] ([facility]) [address] [place] [phone] * (ABNORMAL) Comprehensive metabolic panel (10/30/2024 7:11 PM EDT) Sodium 139 136 - 145 mmol/L 10/30/2024 7:46 PM EDT [facility] ([facility]) Potassium 3.7 3.5 - 5.1 mmol/L 10/30/2024 7:46 PM EDT [facility] ([facility]) Chloride 110(H) 98 - 107 mmol/L 10/30/2024 7:46 PM EDT [facility] ([facility]) CO2 23 21 - 31 mmol/L 10/30/2024 7:46 PM EDT [facility] ([facility]) Anion Gap 10 7 - 20 mmol/L 10/30/2024 7:46 PM EDT [facility] ([facility]) BUN 5(L) 7 - 25 mg/dL 10/30/2024 7:46 PM T [facility] ([facility]) Creatinine 0.64 0.60 - 1.20 mg/dL 10/30/2024 7:46 PM [facility] ([facility]) BUN/Creatinine Ratio 7.8 10/16 7:46 PM [facility] ([facility]) Glucose 101(H) 70 - 100 mg/dL 10/30/2024 7:46 PM [facility] ([facility]) Calcium 7.8(L) 8.6 - 10.3 mg/dL 10/30/2024 7:46 PM [facility] ([facility]) AST 19 13 - 39 U/L 10/30/2024 7:46 PM [facility] ([facility]) ALT (SGPT) 7 7 - 52 U/L 10/30/2024 7:46 PM [facility] ([facility]) Alkaline Phosphatase 45 34 - 104 U/L 10/30/2024 7:46 PM [facility] ([facility]) Total Protein 5.0(L) 6.0 - 8.3 g/dL 10/30/2024 7:46 PM [facility] ([facility]) Albumin 3.2(L) 3.5 - 5.7 g/dL 10/30/2024 7:46 PM [facility] ([facility]) Total Bilirubin 0.2(L) 0.3 - 1.0 mg/dL 10/30/2024 7:46 PM [facility] ([facility]) eGFR 118.1 >60.0 mL/min/1. 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) (CMS/HCC) Acute [...] fentaNYL (Sublimaze) injection As needed, Starting on Heena 11/02/24 at 1348, Intraprocedure Given 11/02/2024 2:41 PM EDT 25 mcg Given 11/02/2024 2:20 PM EDT 25 mcg Given 11/02/2024 1:57 PM EDT 25 mcg glucose chewable tablet [...] heparin (porcine) injection As needed, Starting on Heena 11/02/24 at 1420, Intraprocedure Given 11/02/2024 2:20 PM EDT 6,000 Units heparin irrigation 2 units/mL in NS As needed, Starting on [facility]ena 11/02/24 at 1348, Intraprocedure Given 11/02/2024 1:48 PM EDT 2,000 mL HYDROcodone-acetaminophen ([place]) 5-325 mg per tablet 1 tablet 1 tablet, oral, Every 4 hours PRN, moderate pain (4-7 pain score), Starting on [facility] 9/18/25 at 1331, For 96 days Given 11/03/2024 10:11 AM EDT 1 tablet HYDROcodone-acetaminophen ([place]) 5-325 mg per tablet 2 tablet 2 [...] mg iodine/mL injection As needed, Starting on Wed11/02/24 at 1454, Intraprocedure Given 11/02/2024 2:54 PM EDT 80 mL levothyroxine (Synthroid, Levoxyl) tablet 75 mcg [...] (1 %) injection As needed, Starting on Wed11/02/24 at 1349, Intraprocedure Given 11/02/2024 1:49 PM EDT 20 mL liothyronine (Cytomel) tablet 5 mcg 5 [...] midazolam (Versed) injection As needed, Starting on [facility]ena 11/02/24 at 1348, Intraprocedure Given 11/02/2024 2:41 PM EDT 1 mg Given 11/02/2024 1:57 PM EDT 1 mg Given 11/02/2024 1:48 PM EDT 1 mg mirtazapine (Remeron) tablet [...] greater than 12 breaths per minute. nitroglycerin (Tridil) infusion 200 mcg/mL Continuous PRN, Starting on [facility]ena 11/02/24 at 1434, Intraprocedure New Bag 11/02/2024 2:34 PM EDT 20 mcg/mi n 6 mL/hr nitroglycerin 100 mcg/mL 25ml CVL soln As needed, Starting on Heena 11/02/24 at 1406, Intraprocedure Given 11/02/2024 2:33 PM EDT 50 mcg Given 11/02/2024 2:31 PM EDT 25 mcg Given 11/02/2024 2:10 PM EDT 75 mcg ondansetron HCl (PF) (Zofran) injection 4 [...] 0.9 % infusion Continuous PRN, Starting on Wed11/02/24 at 1348, Intraprocedure New Bag 11/02/2024 1:48 PM EDT 50 mL/hr 50 mL/hr sodium chloride flush 10 mL 10 [...] or split. 1021 (Given - Provider: Joanna French, DEE) 0933 [...] 1 day 0832 (Given - Provider: Joanna French RN) escitalopram (Lexapro) tablet 20 mg [...] met) 2199 (Not Given - Provider: Christine Samuel, RN - Reason: Order parameters not met) [...] Baker, DEE)1700 (Given - Provider: Patricia Butt, DEE) polyethylene glycol (Glycolax) packet 17 g 17 [...] am dose late)1704 (Given - Provider: Patricia Butt, RN)2107 (Given - Provider: Christine Baker RN) [...] 99 days 0753 (Given - Provider: Joanna French, RN)1038 (Given - Provider: Joanna French, RN)1225 (Given - Provider: Joanna French, RN)1446 (Given - Provider: Joanna French RN)1633 (Given - Provider: Joanna French RN)1934 (Given - Provider: Radha Godoy RN)2224 (Given - Provider: Radha Godoy, RN) 0700 (Given - Provider: Radha Godoy RN)0908 (Given - Provider: Fang Oreilly RN)1100 (Given - Provider: Fang Oreilly RN)1241 (Given - Provider: Fang Oreilly, DEE)1444 (Given - Provider: Patricia Butt RN)1704 (Given [...] IV fluids or tube feeding bolus) HYDROcodone-acetaminophen ([place]) 5-325 mg per tablet 1 tablet(Linked Group 4) 1 tablet, oral, Every 4 hours PRN, moderate pain (4-7 pain score), Starting on [facility] 11/02/24 at 1331, For 96 days 0401 (See Alternative - Provider: Radha Godoy RN)1138 (See Alternative - Provider: Joanna French, DEE)1604 (See Alternative - Provider: Joanna French RN) 0553 (See Alternative - Provider: Radha Godoy RN)0932 (See Alternative - Provider: Fang Oreilly RN)1300 (See Alternative - Provider: Fang Oreilly, DEE) 0909 (See Alternative - Provider: Patricia Butt RN)1449 (See Alternative - Provider: Patricia Butt RN) HYDROcodone-acetaminophen ([place]) 5-325 mg per tablet 2 tablet(Linked Group [...] or tube feeding bolus) Group 4: HYDROcodone-acetaminophen ([place]) 5-325 mg per tablet 1 tabletJump to med 1 tablet, oral, Every 4 hours PRN, moderate pain (4-7 pain score), Starting on [facility] 11/02/24 at 1331, For 96 days Or HYDROcodone-acetaminophen ([place]) 5-325 mg per tablet 2 tabletJump to med 2 tablet, oral, Every 4 hours PRN, severe pain (8-10 pain score), Starting on [facility] 11/02/24 at 1331, For 96 days [...] days documented in this encounter Care Teams Set Up And Lay Out Inspector Relationship Specialty Start Date End Date Thomas Alas MD [address] [place], [place] [id number] PCP - General Family Medicine 08/17/24 documented as of this encounter
--- OUTSIDE RECORDS SUMMARY | 2024-11-02 20:45 | XMS_ITS | Encounter Summary ---
Author Organization [facility] Address [address] [place] [address] Care Team Providers Care Jitterbug Operator Name Role Phone Thomas Alas MD Primary Care Provider [phone] Reason for Visit * Auth/Cert (Routine) Specialty Diagnoses / Procedures Referred By Contac t Referred To Contact Diagnoses Chest pain NSTEMI Procedures NO CODED SERVICE Sandeep Casey MD [address] [place] [address] Phone: tel: fax: [facility] [address] [place] [address] Phone: tel: fax: Referral ID Status Reason Start Date Expiration Date Visits Re quested Visits Authorized [id number] 1 1 Encounter Details Date Type Department Care Team (Late st Contact Info) Description 11/02/2024 8:45 PM EDT Anesthesia Event [facility] Main Operating Room [address] [place] [address] David Reyes MD [address] [facility] [place] [address] Anesthesia Record Procedure Summary Procedure Name Responsible Anesthesiologist Anesthesia Start Time Anesthesia Stop Time EXPLORATION, HEMATOMA Right Groin (Right: Groin) David Reyes MD 11/02/24204411/02/242214 Events Date Time Event Comment 11/02/20242029 An Start 2044 An Start Data 2051 An Induction The patient was reevaluated immediately before moderate or deep sedation use and before anesthesia induction. 2055 An Intubation 2099 Anesthesia Ready 2107 Time Out Time out comple darvin (confirmed patient ID, surgeon, procedure, and operative site). 2109 Herbert blood 2125 Herbert blood 2206 An Extubation 2209 an stop data 2214 Handoff to Receiving I compl eted my handoff to the receiving clinician during which we: 1. Identified the patient 2. Identified the responsible provider 3. Reviewed the pertinent medical history 4. Discussed the surgical course 5. Reviewed intra-op anesthesia management and issues during anesthesia 6. Set expectations for post-procedure period 7. Allowed opportunity for questions and acknowledgement of understanding. 2214 An Stop Meds Name Total midazolam (Versed) 1mg/mL injection 2 mg fentaNYL (SUBLIMAZE) injection 25 mcg lidocaine (Xylocaine) 20 mg/ml injection 2 % 100 mg succinylcholine 20 mg/mL 140 mg dexAMETHasone (Decadron) 4 MG/ML injecti on 8 mg ondansetron 2 mg/mL 4 mg albumin human bottle 5% 25 g Etomidate (Amidate) Injection 2 mg/ml In travenous Solution 11 mg ceFAZolin 1 g 2,000 mg LR 1,500 mL * Agents Name O2 N2O Air Sevoflurane Inspired Sevoflurane N2O Inspired N2O Inspired O2 Setting * Blood Name Total PRBC 700 mL Lines, Drains, and Airways Type Details Placement Removal Open Wound (Any Pressure Injuries included) 11/02/24; 908; Surgical; Groin; Anterior, Proximal, Right, Upper; hematoma (x2 small access sites noted to area) 11/02/24 09 by Elicia Small RN CVC Single Lumen Placement Date: 10/16 07/09 (unknown); Placement Time: 1839 (unknown); Existing LDA Placed by: Other (Comment) (KUMARI PORT SINGLE LUMEN); Type: Tunneled; Orientation: Right; Location: Subclavian; Removal Date: 11/07/24; Removal Time: 210910/30/241839 by Stacie Keyes RN 11/07/242109 by Automatic Discharge Provider Closed Skin Issue (NOT pressure injury) 10/30/24; 184; Y; Other (Comment) (Old J-Tube site); Abdomen; Left, Lower; 11/03/24; 0000 10/30/241840 by Stacie Keyes RN 11/03/24 0000 by Orlando Mendoza RN Peripheral IV Placement Date: 10/30/24; Placement Time: 2044; Catheter Size: 20 G; Orientation: Anterior, Left; Location: Forearm; Site Prep: Chlorhexidine ; Local Anesth: None; Technique: Ultrasound guidance; Inserted by: dominik silva; Insertion Attempts: 1; Difficult Venous Access? Yes; Patient Tolerance: Tolerated well; Removal Date: 11/07/24; Removal Time: 210910/30/242044 by Nahed Sanders RN 11/07/242109 by Automatic Discharge Provider ETT Placement Date: 11/02/24; Placement Time: 2055 (created via procedure documentation); Mask Ventilation: 1; Technique: Direct laryngoscopy; Type: ETT - single; Single Lumen Tube Size: 7.5 mm; Cuffed: Yes; Laryngoscope: Cherrie; Blade Size: 3; Location: Oral; Grade View: Grade I; Insertion Attempts: 1; Placement Verification: Auscultation, Capnometry; Removal Date: 11/02/24; Removal Time: 220611/02/242055 by ORLANDO Nair 11/02/242206 by ORLANDO Nair Closed/Suction Drain 11/02/24; 2135; 1; Right, Anterior; Groin; 10 Fr.; Other (Comment) (Member of Vascular discontinued the GONSALO drain.) 11/02/242135 by Elicia Small RN 11/05/241329 by Joanna French RN documented in this encounter Social History Tobacco Use Types Packs/Day Years Used Date Smoking Tobacco: Never Smokeless Tobacco: Never [employer] Answer Date Recorded In the past 12 months has [employer], gas, oil, or water [employer] threatened to shut off services in your [...] time in the past 12 m [facility], were you homeless or living in a nursing home (including now)? No 10/30/2024 Hunger Vital Sign [...] as of this encounter Functional Status * Question Answer Date of Assessment Author BP 128/57 11/02/2024 10:29 PM EDT Fern Henley RN Pulse 88 11/02/2024 10:29 PM EDT Fern Henley RN Heart Rate Source Monitor 11/02/2024 10:29 PM EDT Fern Snider RN Patient Position Lying 11/02/2024 10:29 PM EDT Fern Snider RN * Qureshi Fall Risk Question Answer Date of Assessment Author History of Falling, Immediat e or Within 3 Months 0 11/02/2024 7:39 AM EDT Patricia Butt RN Secondary Diagnosis 15 11/02/2024 7:39 AM ED T Patricia Butt RN Ambulatory Aid 0 11/02/2024 7:39 AM EDT Car rPatricia RN Intravenous Therapy/Heparin Lock 11/03/19 25 7:39 AM EDT Patricia Butt RN Gait/Transferring 0 11/02/2024 7:39 AM EDT Patricia Butt RN Mental Status 0 11/02/2024 7:39 AM EDT Patricia Butt RN Qureshi Fall Risk Score 35 11/02/2024 7:39 AM EDT Patricia Butt RN * Cyrus Scale Question Answer Date of Assessment Author Sensory Perceptions 4 11/02/2024 7:39 AM ED [...] Answer Date of Assessment Author No pain 11/02/2024 7:26 PM EDT Myesha Hurd RN * [place] Fall Risk Interventions Question Answer Date of Assessment Author [place] Fall Risk Interventions Complete 025 7:39 AM EDT Patricia Butt RN * Pain Assessment Timer Question Answer Date of Assessment Author Restart Pain Assessment Timer Yes 11/02/2024 10:29 PM EDT Fern Snider RN * Sepsis Model Scores Question Answer Date of Assessment Author Early Detection of Sepsis Score 1.35 10:30 PM EDT Delano Guzman * Pain Assessment Question Answer Date of Assessment Author Pain Location Back 11/02/2024 10:29 PM EDT Fern Snider RN Pain Orientation Mid 11/02/2024 10:2 9 PM EDT Fern Snider RN Pain Interventions Emotional support;Environmental changes 11/02/2024 7:39 AM EDT Patricia Butt RN Pain Descriptors Aching 11/02/2024 10:2 9 PM EDT Fern Snider RN Pain Onset Awakened from sleep 11/02/2024 1 0:29 PM EDT Snider, Fern, RN Response to Interventions No improvement 2024 10:57 AM EDT Patricia Butt RN Pain Type Acute pain 11/02/2024 10:29 PM EDT Fern Snider RN Clinical Progression Gradually improving 025 7:39 AM EDT Patricia Butt RN Pain Score 9 11/02/2024 10:29 PM EDT Fern Snider RN Pain Assessment 0-10 11/02/2024 10:29 PM EDT Fern Snider RN * Patient Behaviors Answer Date of Assessment Author Groaning 11/02/2024 7:04 PM EDT Myesha Hurd RN * Deterioration Index Score Question Answer Date of Assessment Author Deterioration Index Score 35.87 11/02/2024 10:1 5 PM EDT Chronicles, Batchq * Head, Ears, Eyes, Nose, and Throat (HEENT) Question Answer Date of Assessment Author Head, Ears, Eyes, Nose, and Throat (WDL) WDL 11/02/2024 10:29 PM EDT Fern Snider RN R Eye Mildly impaired vision;Corrective lenses 11/02/2024 [...] 7:39 AM EDT Patricia Butt RN Tongue [place];Moist 11/02/2024 7:39 AM EDT Patricia Butt RN Mucous Membrane(s) Moist;[place];Intact 11/02/2024 7:39 A M EDT Patricia Butt RN Teeth Intact 11/02/2024 7:39 AM EDT Patricia Butt RN Head and Face Symmetrical 11/02/2024 7:39 AM EDT Patricia Butt RN Neck Symmetrical 11/02/2024 7:39 AM EDT Patricia Butt RN Lips Dry;Moist;[place] 11/02/2024 7:39 AM EDT Car rPatricia RN * Short Portable Mental Status Question [...] Assessment Author Pulse rate from Plethysmogram (bpm) 119 11/02 8:20 PM EDT Nathalie Hurd RN * Question Answer Date of Assessment Author SpO2 100 11/02/2024 8:28 PM EDT Alyce Guerra RN * Question Answer Date of Assessment Author Warm [place] Applied 11/02/2024 10:14 PM EDT Fern Henley RN Additional Comfort/Environmental Interventions Warm blanket 11/02/2024 10:29 PM EDT Fern Snider RN * Vital Signs Question Answer Date of Assessment Author BP 128/57 11/02/2024 10:29 PM EDT Fern Henley RN Temp 97.2 11/02/2024 10:14 PM EDT Fern Henley RN Temp src Temporal 11/02/2024 10:14 PM EDT Fern Henley RN Pulse 88 11/02/2024 10:29 PM EDT Fern Henley RN Resp 15 11/02/2024 10:29 PM EDT Fern Henley RN Heart Rate Source Monitor 11/02/2024 10:29 PM EDT Fern Snider RN BP Location Left arm 11/02/2024 10:29 PM EDT Fern Henley RN BP Method Automatic 11/02/2024 10:29 PM EDT Fern Henley RN MAP (mmHg) 79 11/02/2024 10:29 PM EDT Fern Henley RN Patient Position Lying 11/02/2024 10:29 PM EDT Fern Snider RN * Question Answer Date of Assessment [...] and liquids without difficulty 11/02/2024 7:39 AM EDT Patricia Butt RN R Hand Grasp Strong 11/02/2024 10:29 PM EDT Fern Snider RN L Hand Grasp Strong 11/02/2024 10:29 PM EDT Fern Snider RN R Foot Dorsiflexion Moderate 11/02/2024 1 0:29 PM EDT Fern Snider RN L Foot Dorsiflexion Strong 11/02/2024 1 0:29 PM EDT Fern Snider RN R Foot Plantar Flexion Strong 5 7:39 AM EDT Patricia Butt RN L Foot Plantar Flexion Strong 7:39 AM EDT Patricia Butt RN R Pupil Shape Round 11/02/2024 7:39 AM EDT Patricia Butt RN L Pupil Shape Round 11/02/2024 7:39 AM EDT Patricia Butt RN Neuro Symptoms None 11/02/2024 7:39 AM EDT Patricia Butt RN Pupil Assessment Yes 11/02/2024 7:39 AM EDT Patricia Butt RN Hand Grasp/Motor Function/Sensation Assessment Grasp;Dorsiflexion;Lacey ntar flexion 11/02/2024 7:39 AM EDT Patricia Butt RN Facial Symmetry Symmetrical 11/02/2024 7:39 AM EDT Patricia Butt RN * Question Answer Date of Assessment Author Chest Assessment Chest expansion symmetrical 7:39 AM EDT Patricia Butt RN Cough None 11/02/2024 7:39 AM EDT Patricia Butt RN * Question Answer Date of Assessment Author Cardiac Rhythm NSR 11/02/2024 10:29 PM EDT Fern Jansen RN Cardiac Regularity Regular 11/02/2024 10:29 PM ED T Fern Snider RN Black Studies Professor Status On 11/02/2024 7:39 AM EDT Patricia Butt RN Telemetry Box Number [id number] 11/02/2024 7:39 AM E DT Patricia Butt RN Jugular Venous Distention (JVD) No 11/02/2024 7:39 AM EDT Patricia Butt RN Cardiac Symptoms Lightheaded;Other (Comment) 11/02/2024 7:39 AM EDT Patricia Butt RN Heart Sounds S1, S2 11/02/2024 7:39 AM EDT Patricia Butt RN * Gastrointestinal Question Answer Date of Assessment Author Passing Flatus Yes 11/02/2024 7:39 AM EDT Patricia Butt RN Abdominal Tenderness Guarding;Soft 11/02/2024 7:39 AM EDT Patricia Butt RN Bowel Sounds (All Quadrants) Hypoactive 11/02/2024 10:29 PM EDT Fern Snider RN Gastrointestinal (WDL) X 10:29 PM EDT Fern Snider RN Abdomen Inspection Soft;Rounded;Nondist e nded 11/02/2024 [...] Date of Assessment Author Peripheral Vascular (WDL) X 11/02/2024 10:29 PM EDT Fern Snider RN Capillary Refill Less than/equal to 2 seconds (All extremities) 11/02/2024 10:29 PM EDT Fern Snider RN Pulses Right posterior tibial 10:29 PM EDT Fern Snider RN Cyanosis None 11/02/2024 7:39 AM EDT Patricia Butt RN Peripheral Vascular Additional Assessments Right lower extremity 11/02/2024 10:29 PM EDT Fern Snider RN * RUE Neurovascular Assessment Question Answer Date of Assessment Author RUE Capillary Refill Less than/equal to 2 seconds 11/02/2024 10:29 PM EDT Fern Snider RN RUE Color Pale;[place] 11/02/2024 10:29 PM EDT Fern Henley RN RUE Temperature/Moisture Warm;Dry 11/02/2024 7:39 AM EDT Patricia Butt RN Right Radial Pulse +2 11/02/2024 7:39 AM EDT Patricia Butt RN * LUE Neurovascular Assessment Question Answer Date of Assessment Author LUE Capillary Refill Less than/equal to 2 seconds 11/02/2024 10:29 PM EDT Fern Snider RN LUE Color Appropriate for ethnicity 11/02/2024 7:39 AM EDT Patricia Butt RN LUE Temperature/Moisture Warm;Dry 11/02/2024 7:39 AM EDT Patricia Butt RN Left Radial Pulse +2 11/02/2024 7:39 AM EDT Patricia Butt RN * RLE Neurovascular Assessment Question Answer Date of Assessment Author RLE Capillary Refill Less than/equal to 2 seconds 11/02/2024 10:29 PM EDT Fern Snider RN RLE Color Pale;Purple 11/02/2024 10:29 PM EDT Fern Snider RN RLE Temperature/Moisture Warm;Dry 11/02/2024 7:39 AM EDT Patricia Butt RN Right Posterior Tibial Pulse Doppler 11/02/2024 10:29 PM EDT Fern Snider RN Right Pedal Pulse Doppler 11/02/2024 10: 29 PM EDT Fern Snider RN RLCatina Varicose Veins Present No 11/02/2024 7:39 AM EDT Patricia Butt RN RLCatina DVT Prophylaxis Sequential compressi on device 11/02/2024 7:39 AM EDT Patricia Butt RN * LLE Neurovascular Assessment Question Answer Date of Assessment Author LLE Capillary Refill Less than/equal to 2 seconds 11/02/2024 10:29 PM EDT Fern Snider RN LLE Color Appropriate for ethnicity 11/02/2024 7:39 AM EDT Ptaricia Butt RN LLE Temperature/Moisture Warm;Dry 11/02/2024 7:39 AM EDT Patricia Butt RN Left Posterior Tibial Pulse +2 11/02/2024 10:29 PM EDT Fern Snider RN Left Pedal Pulse +2 11/02/2024 7:39 AM EDT Patricia Beckham RN LLCatina Varicose Veins Present No 11/02/2024 7:39 AM EDT Patricia Butt RN LLE DVT Prophylaxis Sequential compressi on device 11/02/2024 [...] Patricia Butt RN Musculoskeletal (WDL) WDL 11/02/2024 10:29 PM EDT Fern Snider RN * Psychosocial Question Answer Date of Assessment Author Patient Behaviors/Mood Calm 11/02/2024 7:39 AM EDT Patricia Butt RN Needs Expressed Physical 11/02/2024 7:39 AM EDT Patricia Ambrose RN Psychosocial (WDL) WDL 11/02/2024 7:39 AM [...] :39 AM EDT Patricia Butt RN * Qureshi Fall Risk Question Answer Date of Assessment Author History of Falling, Immediat e or Within 3 Months 0 11/02/2024 7:39 AM EDT Patricia Butt RN Secondary Diagnosis 15 11/02/2024 7:39 AM ED T Patricia Butt RN Ambulatory Aid 0 11/02/2024 7:39 AM EDT Car Patricia ahumada RN Intravenous Therapy/Heparin Lock 20 11/03/19 25 7:39 AM EDT Patricia Butt RN Gait/Transferring 0 11/02/2024 7:39 AM EDT Patricia Butt RN Mental Status 0 11/02/2024 7:39 AM EDT Patricia Butt RN Qureshi Fall Risk Score 35 11/02/2024 7:39 AM EDT Patricia Butt RN * Cyrus Scale Question Answer Date of Assessment Author Sensory Perceptions 4 11/02/2024 7:39 AM ED [...] AM EDT Patricia Butt RN * RLE Motor Response Answer Date of Assessment Author Responds to commands 11/02/2024 7:39 AM EDT Patricia Butt RN * RLE Sensation Answer Date of Assessment Author Full sensation 11/02/2024 7:39 AM EDT Fatuma Butt RN * Respiratory Question Answer Date of Assessment Author Bilateral Breath Sounds Clear 11/02/2024 10:29 PM EDT Fern Snider RN Respiratory Pattern Normal 11/02/2024 10:29 PM E Fern Hinds RN Respiratory (WDL) WDL 11/02/2024 10:29 PM EDT Fern Snider RN Respiratory Effort Unlabored 11/02/2024 10:29 PM ED T Fern Snider RN Respiratory Depth/Rhythm Deep 11/02/2024 10:29 PM EDT Fern Snider RN * Charting Type Question Answer Date of Assessment Author Charting Type Shift assessment 11/02/2024 7:39 AM EDT Patricia Butt RN * Patient's Stated Pain Goal Answer Date of Assessment Author No pain 11/02/2024 7:26 PM EDT Myesha Hurd RN * Genitourinary Question Answer Date of Assessment Author Urine Odor No odor 11/02/2024 7:39 AM EDT Patricia Butt RN Female Genitalia Intact 11/02/2024 7:39 AM EDT Patricia Beckham RN Genitourinary ([facility]) WDL 11/02/2024 10:29 PM E Fern Hinds RN Genitourinary Symptoms Excessive passage of urine 11/02/2024 7:39 AM EDT Patricia Butt RN Suprapubic Tenderness No 11/02/2024 7:39 AM EDT Patricia Butt RN * Patient Monitoring Question Answer Date of Assessment Author Frequency of Checks Twice per hour, standard 7:39 AM EDT Patricia Butt RN * Safe Environment Question Answer Date of Assessment Author Chair Alarms Off 11/02/2024 7:39 AM EDT Patricia Butt RN Arm Bands On ID;Allergies 11/02/2024 7:39 AM EDT Patricia Butt RN Side Rails/Bed Safety 2/4 11/02/2024 7:39 AM EDT Patricia Butt RN Bed Alarms Off 11/02/2024 7:39 AM EDT Patricia Butt RN The Patient's Environment is Safe Yes 025 7:39 AM EDT Patricia Butt RN * Mobility Question Answer Date of Assessment Author Resting chair 11/02/2024 12:00 PM EDT Patricia Butt RN Activity Performed Patient off unit 11/02/2024 6:00 PM EDT Patricia Butt RN Repositioned Other (Comment) 11/02/2024 6:00 PM EDT Patricia Ambrose RN Level of Assistance Independent 11/02/2024 7:39 AM ED T Patricia Butt RN Head of Bed Elevated Self regulated 11/02/2024 12:00 PM EDT Patricia Butt RN Heels/Feet Footrest of chair elevated 11/02/2024 7:39 AM JUNT Patricia Butt RN Range of Motion Active;All extremities 11/02/2024 [...] 11/02/2024 7:39 AM Patricia Malone RN * [place] Fall Risk Interventions Question Answer Date of Assessment Author [place] Fall Risk Interventions Complete 025 7:39 AM Patricia Malone RN * Question Answer Date of Assessment Author ETCO2 0 11/02/2024 10:10 PM EDT Inte rface, Device In * Kris Coma Scale Question Answer Date of Assessment Author Best Eye Response Spontaneous 11/02/2024 7:39 AM EDT Patricia Butt RN Best Verbal Response Oriented 11/02/2024 7:39 AM E DT Patricia Butt RN Best Motor Response Follows commands 11/02/2024 7:39 A M EDT Patricia Butt RN [place] Coma Scale Score 15 11/02/2024 7:39 AM EDT Patricia Butt RN * Pain Assessment Question Answer Date of Assessment Author Pain Location Back 11/02/2024 10:29 PM JUNT Fern Snider RN Pain Orientation Mid 11/02/2024 10:2 9 PM EDT Fern Snider RN Pain Interventions Emotional support;Environmental changes 11/02/2024 7:39 AM EDT Patricia Butt RN Pain Descriptors Aching 11/02/2024 10:2 9 PM JUNT Fern Snider RN Pain Onset Awakened from sleep 11/02/2024 1 0:29 PM EDT Fern Snider RN Response to Interventions No improvement 2024 10:57 AM EDT Patricia Butt RN Pain Type Acute pain 11/02/2024 10:29 PM EDT Fern Snider RN Clinical Progression Gradually improving 025 7:39 AM EDT Patricia Butt RN Pain Score 9 11/02/2024 10:29 PM JUNT Fern Snider RN Pain Assessment 0-10 11/02/2024 10:29 PM EDT Fern Snider RN * Nutrition Question Answer Date of Assessment Author Diet Type Heart healthy 11/02/2024 7:39 AM EDT Patricia Butt RN Feeding Able to feed self 11/02/2024 7:39 AM EDT Patricia Butt RN Appetite Good 11/02/2024 7:39 AM EDT Patricia Butt RN * Integumentary Question Answer Date of Assessment Author Skin Condition/Temp Warm;Dry 11/02/2024 7:39 AM ED T Patricia Butt RN Skin Integrity Other (Comment) 11/02/2024 7:39 AM EDT Patricia Butt RN Skin Turgor Non-tenting 11/02/2024 7:39 AM EDT Patricia Butt RN Integumentary Additional Assessments Tattoos 11/02/2024 7:39 AM EDT Patricia Butt RN Integumentary (WDL) X 11/02/2024 7:39 AM ED T Patricia Butt RN Does patient have tattoos? Yes 11/02/2024 7:3 9 AM EDT Patricia Butt RN * GI Interventions Question Answer Date of Assessment Author GI Interventions Performed Encouraged adequate fiber intake;Encouraged adequate fluid intake 11/02/2024 7:39 AM EDT Patricia Butt RN * Question Answer Date of Assessment Author Which is your dominant hand? Right 11/02/2024 7 :39 AM EDT Patricia Butt RN * Question Answer Date of Assessment Author Urinary Frequency Adequate 11/02/2024 9:00 AM EDT Patricia Butt RN Urine Color Yellow/straw 11/02/2024 9:00 AM EDT Patricia Butt RN Urine Appearance Clear 11/02/2024 9:00 AM EDT Patricia Beckham RN Urinary Incontinence No 11/02/2024 9:00 AM E Patricia Tabor RN * Question Answer Date of Assessment Author Patient Goal for Treatment DC 11/02/2024 7:3 9 AM EDT Patricia Butt RN * Patient Behaviors Answer Date of Assessment Author Groaning 11/02/2024 7:04 PM EDT Myesha Hurd RN * Care Plan - Safety Goals Question Answer Date of Assessment Author Free from fall injury Assess patient frequently for physical needs 11/02/2024 7:39 AM EDT Patricia Butt RN * Question Answer Date of Assessment Author Skin Color Pale;[place] 11/02/2024 10:29 PM EDT Fern Henley RN * Modified Jesi Question Answer Date of Assessment Author Activity 2 11/02/2024 10:29 PM EDT Fern Henley RN Respiration 2 11/02/2024 10:29 PM EDT Fern Henley RN Circulation 2 11/02/2024 10:29 PM EDT Fern Henley RN Consciousness 1 11/02/2024 10:29 PM EDT Fern Hammonds RN Oxygen Saturation 2 11/02/2024 10:29 PM EDT Fern Snider RN Modified Jesi Score 9 11/02/2024 10:29 P M EDT Fern Snider RN documented as of this encounter Mental Status * [place] Agitation Sedation Scale Question Answer Entry Date Author [place] Agitation Sedation Scale (RASS) 0 11/02/2024 2:54 PM EDT Mariela JoryGregory N * Kris Coma Scale Question Answer Entry Date Author Best Eye Response Spontaneous 11/02/2024 7:39 AM EDT Patricia Butt RN Best Verbal Response Oriented 11/02/2024 7:39 AM E DT Patricia Butt RN Best Motor Response Follows commands 11/02/2024 7:39 A M EDT Patricia Butt RN [place] Coma Scale Score 15 11/02/2024 7:39 AM EDT Patricia Butt RN * Modified Jesi Question Answer Entry Date Author Activity 2 11/02/2024 10:29 PM EDT Fern Henley RN Respiration 2 11/02/2024 10:29 PM EDT Fern Henley RN Circulation 2 11/02/2024 10:29 PM EDT Fern Henley RN Consciousness 1 11/02/2024 10:29 PM EDT Fern Hammonds RN Oxygen Saturation 2 11/02/2024 10:29 PM EDT Fern Snider RN Modified Jesi Score 9 11/02/2024 10:29 P M JUNT Fern Snider RN documented in this encounter Procedure Notes * ORLANDO Nair - 11/02/2024 9:05 PM EDTAssociated Order(s): Airway Airway Date/Time: 11/02/2024 8:56 PM Reason: elective Airway not difficult General Information and Staff Patient location during procedure: [place] Anesthesiologist: David Reyes MD Resident/PROCESS ENGINEERING TECHNICIAN/CAA: ORLANDO Nair Performed: resident/PROCESS ENGINEERING TECHNICIAN/[place]LANDO Patient Condition Indications for airway management: anesthesia Patient position: sniffing Sedation level: deep Final Airway Details Preoxygenated: yes Final airway type: endotracheal airway Successful airway: ETT Cuffed: yes Successful intubation technique: direct laryngoscopy Adjuncts used in placement: cricoid pressure and intubating stylet Endotracheal tube insertion site: oral Blade: Cherrie Blade size: #3 ETT size (mm): 7.5 Cormack-Lehane Classification: grade I - full view of glottis Placement verified by: chest auscultation and capnometry Measured from: teeth ETT to teeth (cm): 22 Number of attempts at approach: 1 Number of other approaches attempted: 0 documented in this encounter Plan of Treatment Upcoming Encounters Date Type Department Care Team (Late st Contact Info) Description 11/20/2024 2:30 PM EDT Follow-Up [facility] Vascular and Endovascular Surgery [address] [place] [id number] Delphine Du NP [address] [facility] [place] [address] [place] [address] 11/28/2024 11:00 AM EDT Follow-Up [facility] Cardiology [address] [place] [address] Wali Collins MD [address] [place] [id number] 12/04/2024 10:00 AM EDT Office Visit [facility] [address] [place] [address] Katie Altamirano MD [address] [facility] [place] [address] documented as of this encounter Procedures Procedure Name Priority Date/Time Associated Diagnosis Comments AK AN ELECTIVE ENDOTRACHEAL AIRWAY Routine 11/02/2024 8:56 PM EDT documented in this encounter Results * AK AN ELECTIVE ENDOTRACHEAL AIRWAY (11/02/2024 8:56 PM EDT) Narrative Tarik Mayers CAA - 11/02/2024 8:56 PM EDT ORLANDO Nair 11/02/2024 9:06 PM Airway Date/Time: 11/02/2024 8:56 PM Reason: elective Airway not difficult General Information and Staff Patient location during procedure: [place] Anesthesiologist: David Reyes MD Resident/PROCESS ENGINEERING TECHNICIAN/ORLANDO: ORLANDO Nair Performed: resident/PROCESS ENGINEERING TECHNICIAN/[place]O Patient Condition Indications for airway management: anesthesia Patient position: sniffing Sedation level: deep Final Airway Details Preoxygenated: yes Final airway type: endotracheal airway Successful airway: ETT Cuffed: yes Successful intubation technique: direct laryngoscopy Adjuncts used in placement: cricoid pressure and intubating stylet Endotracheal tube insertion site: oral Blade: Cherrie Blade size: #3 ETT size (mm): 7.5 Cormack-Lehane Classification: grade I - full view of glottis Placement verified by: chest auscultation and capnometry Measured from: teeth ETT to teeth (cm): 22 Number of attempts at approach: 1 Number of other approaches attempted: 0 us David Reyes MD ANESTHESIA ORDERABLES Final Res ult documented in this encounter Visit Diagnoses * Anesthesia Preprocedure Evaluation - David Reyes MD - 11/02/2024 10:25 PM EDT Patient: Abbey Garcia Procedure Information Anesthesia Start Date/Time: 11/02/242044 Procedures: EXPLORATION, HEMATOMA Right Groin (Right: Groin) REPAIR, PSEUDOANEURYSM (Right: Groin) Location: [facility] / [facility] Operating Room Surgeons: Jose Angel Fox MD Relevant Problems Cardio (+) Median arcuate ligament syndrome (+) NSTEMI (non-ST elevated myocardial infarction) (CMS/HCC) (+) Primary hypertension (+) Spontaneous dissection of coronary artery Endo (+) Acquired hypothyroidism (+) Hypothyroidism (+) Type 2 diabetes mellitus without complication, without long-term current use of insulin ([facility]/HCC) GI (+) GERD (gastroesophageal reflux disease) Pulmonary (+) Asthma Clinical information reviewed: Allergies Meds Physical Exam Airway Mallampati: II TM distance: >3 FB Neck ROM: full Cardiovascular - normal exam Rhythm: regular Rate: normal Dental - normal exam Pulmonary Neurological Abdominal - normal exam Other findings: Pt. Presented in distress in pre-op area; pt. Conscious, pale. Anesthesia Plan ASA 4 - emergent general The patient is not a current smoker. Patient was not previously instructed to abstain from smoking on day of procedure. Patient did not smoke on day of procedure. intravenous induction Postoperative pain plan includes opioids. Trial extubation is planned. Anesthetic plan and risks discussed with patient. Use of blood products discussed with patient who consented to blood products. Plan discussed with CAA. Additional Equipment Requests * Anesthesia Postprocedure Evaluation - David Reyes MD - 11/02/2024 10:19 PM EDT Patient: Abbey Garcia Procedure Summary Date: 11/02/24 Room / Location: [facility] / [facility] Operating Room Anesthesia Start: 2044 Anesthesia Stop: 2214 Procedures: EXPLORATION, HEMATOMA Right Groin (Right: Groin) REPAIR, PSEUDOANEURYSM (Right: Groin) Diagnosis: (Hematoma Right Groin) Surgeons: Jose Angel Fox MD Responsible Provider: David Reyes MD Anesthesia Type: general ASA Status: Not recorded Anesthesia Type: general Vitals Value Taken Time BP 136/66 11/02/24 22:19 Temp 36.2 11/02/24 22:19 Pulse 91 11/02/24 22:19 Resp 16 11/02/24 22:19 SpO2 99 11/02/24 22:19 Anesthesia Post Evaluation Patient location during evaluation: PACU Patient participation: complete - patient participated Level of consciousness: awake and alert Pain score: 2 Pain management: adequate Multimodal analgesia pain management approach Airway patency: patent Two or more strategies used to mitigate risk of obstructive sleep apnea Cardiovascular status: hemodynamically stable Respiratory status: acceptable, room air, spontaneous ventilation and nonlabored ventilation Hydration status: euvolemic Patient is hemodynamically stable and is able to be discharged from PACU per anesthesia protocol. No notable events documented. documented in this encounter Administered Medications Inactive Administered Medications - up to 3 most recent administrations Medication Order MAR Action Action Date Dose Rate Site albumin human 5 % bottle intravenous, As needed, Starting on Heena 11/02/24 at 2049, Anesthesia Intraprocedure Given 11/02/2024 8:49 PM EDT 25 g ceFAZolin (Ancef) injection intramuscular, As needed, Starting on Heena 11/02/24 at 2100, Anesthesia Intraprocedure Given 11/02/2024 9:10 PM EDT 2,000 mg dexAMETHasone (Decadron) injection intravenous, As needed, Starting on Heena 11/02/24 at 2057, Anesthesia Intraprocedure Given 11/02/2024 8:58 PM EDT 8 mg etomidate (Amidate) injection intravenous, As needed, Starting on Heena 11/02/24 at 2052, Anesthesia Intraprocedure Given 11/02/2024 8:53 PM EDT 11 mg fentaNYL (Sublimaze) injection intravenous, As needed, Starting on Heena 11/02/24 at 2051, Anesthesia Intraprocedure Given 11/02/2024 8:52 PM EDT 25 mcg lactated Ringer's infusion intravenous, As needed, Starting on Heena 11/02/24 at 2213, Anesthesia Intraprocedure Given 11/02/2024 10:13 PM EDT 1,500 mL lidocaine HCl (Xylocaine) 20 mg/mL (2 %) injection intravenous, As needed, Starting on Heena 11/02/24 at 2051, Anesthesia Intraprocedure Given 11/02/2024 8:52 PM EDT 100 mg midazolam (Versed) injection intravenous, As needed, Starting on Heena 11/02/24 at 2051, Anesthesia Intraprocedure Given 11/02/2024 8:52 PM EDT 2 mg ondansetron (Zofran) injection intravenous, As needed, Starting on Heena 11/02/24 at 2057, Anesthesia Intraprocedure Given 11/02/2024 8:58 PM EDT 4 mg succinylcholine (Anectine) injection intravenous, As needed, Starting on Heena 11/02/24 at 2052, Anesthesia Intraprocedure Given 11/02/2024 8:53 PM EDT 140 mg Transfuse RBC Routine New Bag 11/02/2024 9:30 PM EDT Transfuse RBC Routine New Bag 11/02/2024 9:10 PM EDT documented in this encounter Care Teams Jitterbug Operator Relationship Specialty Start Date End Date Thomas Alas MD [id number] [facility] [address] [address] PCP - General Family Medicine 08/17/24 documented as of this encounter
--- OUTSIDE RECORDS SUMMARY | 2024-11-02 20:45 | XMS_ITS | Encounter Summary ---
Author Organization [facility] Address [address] [place] [address] Care Team Providers Care Milk Runner Name Role Phone Thomas Alas MD Primary Care Provider [phone] Reason for Visit * Auth/Cert (Routine) Specialty Diagnoses / Procedures Referred By Contac t Referred To Contact Diagnoses Chest pain NSTEMI Procedures NO CODED SERVICE Sandeep Casey MD [address] [place] [address] Phone: tel: fax: [facility] [address] [place] [address] Phone: tel: fax: Referral ID Status Reason Start Date Expiration Date Visits Re quested Visits Authorized [id number] 1 1 Encounter Details Date Type Department Care Team (Late st Contact Info) Description 11/02/2024 8:45 PM EDT - 11/02/2024 11:15 PM EDT Surgery [facility] Main Operating Room [address] [place] [address] Jose Angel Fox MD [address] [place] [address] EXPLORATION, HEMATOMA Right Groin Social History Tobacco Use Types Packs/Day Years Used Date Smoking Tobacco: Never Smokeless Tobacco: Never [facility] Utilities Answer Date Recorded In the [...] were you homeless or living in a intermediate (including now)? No 10/30/2024 Hunger Vital Sign [...] Sign Reading Time Taken Comments Blood Pressure 126/69 11/02/2024 11:14 PM EDT Pulse 87 11/02/2024 11:14 PM EDT Temperature 36.2 C (97.2 F) 11/02/2024 10:14 PM EDT Respiratory Rate 13 11/02/2024 11:14 PM EDT Oxygen Saturation 100% 11/02/2024 8:28 PM EDT Inhaled Oxygen Concentration - - Weight 84.9 kg (187 lb 1.6 oz) 11/02/2024 1:15 A M EDT Height 167.6 cm (5' 5.98 ) 10/31/2024 3:20 AM ED T Body Mass Index 29.62 10/31/2024 3:20 AM EDT documented in this encounter Functional Status * Question Answer Date of Assessment Author BP 126/69 11/02/2024 11:14 PM EDT Fern Henley RN Pulse 87 11/02/2024 11:14 PM EDT Fern Henley RN Heart Rate Source Monitor 11/02/2024 11:14 PM EDT Fern Snider RN Patient Position Lying 11/02/2024 11:14 PM EDT Fern Snider RN * Qureshi [...] RN Activity 3 11/02/2024 7:39 AM EDT Patircia Butt RN Mobility 4 11/02/2024 7:39 AM EDT Patricia Butt RN Nutrition 3 11/02/2024 7:39 AM EDT Patricia Butt RN Friction and Shear 3 11/02/2024 7:39 AM EDT Patricia Butt RN Cyrus Scale Score 21 11/02/2024 7:39 AM EDT Patricia Butt RN * [place] Fall Risk Interventions Question Answer Date of Assessment Author [place] Fall Risk Interventions Complete 7:39 AM EDT Patricia Butt RN * Patient Requests Lesser Strength Medication Answer Date of Assessment Author Patient Request for Lesser Medication 11/01/2024 8:04 PM EDT Fern Pierce RN * Pain Assessment Timer Question Answer Date of Assessment Author Restart Pain Assessment Timer Yes 11/02/2024 11:14 PM EDT Fern Snider RN * Sepsis Model Scores Question Answer Date of Assessment Author Early Detection of Sepsis Score 1.54 11:15 PM EDT Delano Guzman * Pain Assessment Question Answer Date of Assessment Author Pain Location Groin 11/02/2024 11:14 PM EDT Fern Snider RN Pain Orientation Mid 11/02/2024 10:5 2 PM EDT Fern Snider RN Pain Interventions Emotional support;Environmental changes 11/02/2024 7:39 AM EDT Patricia Butt RN Pain Radiating Towards righ 11:14 PM EDT Fern Snider RN Pain Descriptors Aching 11/02/2024 11:1 4 PM EDT Fern Snider RN Pain Onset Awakened from sleep 11/02/2024 1 1:14 PM EDT Fern Snider RN Patient's Stated Pain Goal 5 11/02/2024 11:14 PM EDT Fern Snider RN Response to Interventions No improvement 2024 10:57 AM EDT Patricia Butt RN Pain Type Acute pain 11/02/2024 11:14 PM EDT Fern Snider RN Clinical Progression Gradually improving 7:39 AM EDT Patricia Butt RN Pain Score 8 11/02/2024 11:14 PM EDT Fern Snider RN Pain Assessment 0-10 11/02/2024 11:14 PM EDT Fern Snider RN * Audit Alcohol Screening Question Answer [...] Date of Assessment Author Deterioration Index Score 28.6 11/02/2024 11:0 1 PM EDT Chronicles, Batchq * Head, Ears, Eyes, Nose, and Throat (HEENT) Question Answer Date of Assessment Author Head, Ears, Eyes, Nose, and Throat (WDL) WDL 11/02/2024 11:14 PM EDT Fern Snider RN R Eye [...] 7:39 AM EDT Patricia Butt RN Tongue Ganado;Moist 11/02/2024 7:39 AM EDT Patricia Butt RN Mucous Membrane(s) Moist;Ganado;Intact 11/02/2024 7:39 A M EDT Patricia Butt RN Teeth Intact 11/02/2024 7:39 AM EDT Patricia Butt RN Head and Face Symmetrical 11/02/2024 7:39 AM EDT Patricia Butt RN Neck Symmetrical 11/02/2024 7:39 AM EDT Patricia Butt RN Lips Dry;Moist;Ganado 11/02/2024 7:39 AM EDT Car rPatricia RN [...] before him? 1 025 7:39 AM EDT Ptaricia Butt RN * Fall Risk Level Question Answer Date of Assessment Author Mobility zone Low (Green Zone) 11/02/2024 7:39 AM EDT Patricia Butt RN Qureshi fall risk zone Low (Green Zone) 11/02/2024 7:39 AM EDT Patricia Butt RN Mental status questionaire zone Low (Green Zone) 11/02/2024 7:39 AM EDT Patricia Butt RN * Skin [...] Question Answer Date of Assessment Author Warm [place] Applied 11/02/2024 10:14 PM EDT Fern Henley RN Additional Comfort/Environmental Interventions Warm blanket 11/02/2024 11:14 PM EDT Fern Snider RN * Vital Signs Question Answer Date of Assessment Author BP 126/69 11/02/2024 11:14 PM EDT Fern Henley RN Temp 97.2 11/02/2024 10:14 PM EDT Fern Henley RN Temp src Temporal 11/02/2024 10:14 PM EDT Fern Henley RN Pulse 87 11/02/2024 11:14 PM EDT Fern Henley RN Resp 13 11/02/2024 11:14 PM EDT Fern Henley RN Heart Rate Source Monitor 11/02/2024 11:14 PM EDT Fern Snider RN BP Location Left arm 11/02/2024 11:14 PM EDT Fern Henley RN BP Method Automatic 11/02/2024 11:14 PM EDT Fern Henley RN MAP (mmHg) 85 11/02/2024 11:14 PM EDT Fern Henley RN Pulse rate from Plethysmogra m (bpm) 84 11/02/2024 11:14 PM EDT Fern Snider RN Patient Position Lying 11/02/2024 11:14 PM EDT Fern Snider RN * Question [...] Butt RN R Hand Grasp Strong 11/02/2024 11:14 PM EDT Fern Snider RN L Hand Grasp Strong 11/02/2024 11:14 PM EDT Fern Snider RN R Foot Dorsiflexion Moderate 11/02/2024 1 1:14 PM EDT Fern Snider RN L Foot Dorsiflexion Strong 11/02/2024 1 1:14 PM EDT Fern Snider RN R Foot [...] of Assessment Author Cardiac Rhythm NSR 11/02/2024 11:14 PM EDT Fern Snider RN Ectopy Premature ventricula r contractions 11/01/2024 8:04 PM EDT Fern Pierce RN Ectopy Frequency Rare 11/01/2024 8:04 PM EDT Fern Quinn RN Cardiac Regularity Regular 11/02/2024 11 :14 PM EDT Fern Snider RN Order Department Supervisor Status On 11/02/2024 7:39 AM EDT Patricia Butt RN Telemetry Box Number [id number] 11/02/2024 7:39 AM E Patricia Tabor RN Jugular Venous Distention (JVD) No 11/02/2024 7:39 AM EDT Patricia Butt RN Cardiac Symptoms Lightheaded;Other (Comment) 11/02/2024 7:39 AM EDT Patricia Butt RN Heart Sounds S1, S2 11/02/2024 7:39 AM EDT Patricia Butt RN * Gastrointestinal Question Answer Date of Assessment Author [place] Date [id number] 10/31/2024 8:00 PM EDT Fern Pierce RN Passing Flatus Yes 11/02/2024 7:39 AM EDT Patricia Butt RN Abdominal Tenderness Guarding;Soft 11/02/2024 7:39 AM EDT Patricia Butt RN Bowel Sounds (All Quadrants) Hypoactive 11/02/2024 11:14 PM EDT Fern Snider RN Gastrointestinal (WDL) X 11:14 PM EDT Fern Snider RN Abdomen Inspection [...] Assessment Author Peripheral Vascular (WDL) X 11/02/2024 11:14 PM EDT Fern Snider RN Capillary Refill Less than/equal to 2 seconds (All extremities) 11/02/2024 11:14 PM EDT Fern Snider RN Pulses Right posterior tibial 11:14 PM EDT Fern Snider RN Cyanosis None 11/02/2024 7:39 AM EDT Patricia Butt RN Peripheral Vascular Additional Assessments Right lower extremity 11/02/2024 11:14 PM EDT Fern Snider RN * RUE Neurovascular Assessment Question Answer Date of Assessment Author RULesia Capillary Refill Less than/equal to 2 seconds 11/02/2024 11:14 PM EDT Fern Snider RN RUE Color Pale;Ganado 11/02/2024 11:14 PM EDT Fern Henley RN RUE Temperature/Moisture Warm;Dry 11/02/2024 7:39 AM EDT Patricia Butt RN Right Radial Pulse +2 11/02/2024 7:39 AM EDT Patricia Butt RN * LUE Neurovascular Assessment Question Answer Date of Assessment Author LUE Capillary Refill Less than/equal to 2 seconds 11/02/2024 11:14 PM EDT Fern Snider RN LUE Color Appropriate for ethnicity 11/02/2024 7:39 AM EDT Patricia Butt RN LUE Temperature/Moisture Warm;Dry 11/02/2024 7:39 AM EDT Patricia Butt RN Left Radial Pulse +2 11/02/2024 7:39 AM EDT Patricia Butt RN * RLE Neurovascular Assessment Question Answer Date of Assessment Author RLE Capillary Refill Less than/equal to 2 seconds 11/02/2024 11:14 PM EDT Fern Snider RN RLE Color Pale;Purple 11/02/2024 10:29 PM EDT Fern Snider RN RLE Temperature/Moisture Warm;Dry 11/02/2024 7:39 AM EDT Patricia Butt RN Right Femoral Pulse +1 11/01/2024 4:30 PM ED T Fern Almazan RN Right Posterior Tibial Pulse Doppler 11/02/2024 11:14 PM EDT Fern Snider RN Right Pedal Pulse Doppler 11/02/2024 11: 14 PM EDT Fern Snider RN RLE Varicose Veins Present No 11/02/2024 7:39 AM EDT Patricia Butt RN RLLesia DVT Prophylaxis Sequential compressi on device 11/02/2024 7:39 AM EDT Patricia Butt RN * LLE Neurovascular Assessment Question Answer Date of Assessment Author LLE Capillary Refill Less than/equal to 2 seconds 11/02/2024 11:14 PM EDT Fern Snider RN LLE Color Appropriate for ethnicity 11/02/2024 7:39 AM EDT Patricia Butt RN LLE Temperature/Moisture Warm;Dry 11/02/2024 7:39 AM EDT Patricia Butt RN Left Posterior Tibial Pulse +3 11/02/2024 11:14 PM EDT Fern Snider RN Left Pedal Pulse +2 11/02/2024 7:39 AM EDT Patricia Beckham RN LLE Varicose Veins Present No 11/02/2024 7:39 AM [...] 7:39 AM EDT Patricia Butt RN Musculoskeletal ([facility]) L 11/02/2024 11:14 PM EDT Fern Snider RN * Psychosocial Question Answer Date of Assessment Author Patient Behaviors/Mood Calm 11/02/2024 7:39 AM EDT Patricia Butt RN Needs Expressed Physical 11/02/2024 7:39 AM EDT Patricia Ambrose RN Psychosocial ([facility]) [facility] 11/02/2024 7:39 AM EDT Patricia Butt RN [...] Assessment Author Bilateral Breath Sounds Clear 11/02/2024 11:14 PM EDFern Allen RN Respiratory Pattern Normal 11/02/2024 11:14 PM E DT Fern Snider RN Respiratory (WDL) WDL 11/02/2024 11:14 PM EDT Fern Snider RN Respiratory Effort Unlabored 11/02/2024 11:14 PM ED Fern Allen RN Respiratory Depth/Rhythm Deep 11/02/2024 11:14 PM EDT Fern Snider RN * Charting Type Question Answer Date of Assessment Author Charting Type Shift assessment 11/02/2024 7:39 AM EDT Patricia Butt RN * Cultural Requests During Hospitalization Answer Date of Assessment Author None 11/01/2024 7:56 AM EDT Fatuma Butt RN * Spiritual Requests During Hospitalization Answer Date of Assessment Author Mu-Ism 11/01/2024 7:56 AM EDT Fatuma Butt RN * Genitourinary Question Answer Date of Assessment Author Urine Odor No odor 11/02/2024 7:39 AM EDT Patricia Butt RN Female Genitalia Intact 11/02/2024 7:39 AM EDT Patricia Beckham RN Genitourinary (WDL) WDL 11/02/2024 11:14 PM E Fern Hinds RN Genitourinary Symptoms [...] EDT Patricia Butt RN Side Rails/Bed Safety /11/02/2024 7:39 AM EDT Patricia Butt RN Bed [...] Footrest of chair elevated 11/02/2024 7:39 AM EDT Patricia Butt RN Range of Motion Active;All extremities 11/02/2024 7:39 AM EDT Patricia Butt RN Anti-Embolism Devices Bilateral;Sequenti al compression devices, below knee 11/02/2024 7:39 AM EDPatricia Miranda RN Anti-Embolism Intervention Off 11/02/2024 7:39 AM EDT Patricia Butt RN Patient's mobility zone Zone 6 11/02/2024 7:39 A M Patricia Malone RN Positioning Frequency Able to turn self 11/03/19 12:00 PM Patricia Malone RN * Hygiene [...] 2 10/30/2024 7:51 PM Maribel Andrews RN HOUSE PIPING INSPECTOR Evaluation Needed 2 10/30/2024 7:51 PM Maribel Cheng RN * Assistive Devices Question Answer Date of Assessment Author Assistive Devices Eyeglasses 10/30/2024 7:51 PM Maribel Cheng RN * Provider Notification Question Answer Date of Assessment Author Provider Role Nurse Practitioner 10/30/2024 8:10 PM ED Fern Berrios, RN Provider Name Lesli Luna 10/30/2024 8:10 PM EDT Fern Terry, RN Method of Communication Epic Chat 10/30/2024 8:10 P M EDFern Berrios, RN Reason for Communication Critical lab value 10/30/2024 8:10 PM EDT Fern Pierce RN Response No new orders 10/30/2024 8:10 PM EDT Fern Terry RN Notification Time [id number] 10/30/2024 8:10 PM EDT Fern Pierce RN * [place] Fall Risk Interventions Question Answer Date of Assessment Author [place] Fall Risk Interventions Complete 025 7:39 AM EDT Patricia Butt RN * Patient Requests Lesser Strength Medication Answer Date of Assessment Author Patient Request for Lesser Medication 11/01/2024 8:04 PM EDT Fern Pierce RN * Question Answer Date of Assessment Author ETCO2 0 11/02/2024 10:10 PM EDT Inte rface, Device In * Suicidal Ideation Question Answer Date of Assessment Author 1. Wish to be (Lifetime) No 10/30/2024 7:54 PM EDT Maribel Merchant RN 2. Non-Specific Active Suici martha Thoughts (Lifetime) No 10/30/2024 7:54 PM EDT Maribel Merchant, Gregory N * Kris Coma Scale Question Answer Date of Assessment Author Best Eye Response Spontaneous 11/02/2024 7:39 AM EDT Patricia Butt RN Best Verbal Response Oriented 11/02/2024 7:39 AM E DT Patricia Butt RN Best Motor Response Follows commands 11/02/2024 7:39 A M EDT Patricia Butt RN Knox Coma Scale Score 15 11/02/2024 7:39 AM EDT Patricia Butt RN * Is this patient currently opioid tolerant (receiving at least 60 mg morphine equivalent per day (MME/day) for past 7 days or longer)? Answer Date of Assessment Author Opioid Tolerant 10/31/2024 11:08 AM EDT Ky Ritter MD * Pain Assessment Question Answer Date of Assessment Author Pain Location Groin 11/02/2024 11:14 PM EDT Fern Snider RN Pain Orientation Mid 11/02/2024 10:5 2 PM EDT Fern Snider RN Pain Interventions Emotional support;Environmental changes 11/02/2024 7:39 AM EDT Patricia Butt RN Pain Radiating Towards righ 11:14 PM EDT Fern Snider RN Pain Descriptors Aching 11/02/2024 11:1 4 PM EDT Fern Snider RN Pain Onset Awakened from sleep 11/02/2024 1 1:14 PM EDT Fern Snider RN Patient's Stated Pain Goal 5 11/02/2024 11:14 PM JUNT Fern Snider RN Response to Interventions No improvement 2024 10:57 AM Patricia Malone RN Pain Type Acute pain 11/02/2024 11:14 PM EDT Fern Snider RN Clinical Progression Gradually improving 025 7:39 AM EDT Patricia Butt RN Pain Score 8 11/02/2024 11:14 PM JUNT Fern Snider RN Pain Assessment 0-10 11/02/2024 11:14 PM EDT Fern Snider RN * Nutrition Question Answer Date of Assessment Author Diet Type Heart healthy 11/02/2024 7:39 AM Patricia Malone RN Feeding Able to feed self 11/02/2024 7:39 AM Patricia Malone RN Appetite Good 11/02/2024 7:39 AM EDT Patricia Butt RN * Integumentary Question Answer Date of Assessment Author Skin Condition/Temp Warm;Dry 11/02/2024 7:39 AM Patricia Duncan RN Skin Integrity Other (Comment) 11/02/2024 7:39 AM Patricia Malone RN Skin Turgor Non-tenting 11/02/2024 7:39 AM Patricia Malone RN Integumentary Additional Assessments Tattoos 11/02/2024 7:39 AM Patricia Malone RN Integumentary (WDL) X 11/02/2024 7:39 AM Patricia Duncan RN Does patient have tattoos? Yes 11/02/2024 7:3 9 AM Patricia Malone RN * GI Interventions Question Answer Date of Assessment Author GI Interventions Performed Encouraged adequate fiber intake;Encouraged adequate fluid intake 11/02/2024 7:39 AM Patricia Malone RN * Question Answer Date of Assessment Author Which is your dominant hand? Right 11/02/2024 7 :39 AM EDPatricia Miranda RN * Question Answer Date of Assessment Author Urinary Frequency Adequate 11/02/2024 9:00 AM Patricia Malone RN Urine Color Yellow/straw 11/02/2024 9:00 AM Patricia Malone RN Urine Appearance Clear 11/02/2024 9:00 AM Patricia Vallejo RN Urinary Incontinence No 11/02/2024 9:00 AM E Patricia Tabor RN * Audit Alcohol Screening Question Answer Date of Assessment Author How often do you have a drin k containing alcohol? 0 10/30/2024 7:53 PM EDT Maribel Merchant R N How many standard drinks con taining alcohol do you have on a typical day? No 10/30/2024 7:53 PM JUNT Maribel Merchant R N How often do you have six or more drinks on one occasion? 0 10/30/2024 7:53 PM JUNT Jalil Merchant RN Audit-C Score 0 10/30/2024 7:53 PM JUNT Maribel Merchant RN * Question Answer Date of Assessment Author Patient Goal for Treatment DC 11/02/2024 7:3 9 AM EDT Patricia Butt RN * Drug Screening Question Answer Date of Assessment Author Have you used any substances (canabis, cocaine, heroin, hallucinogens, inhalants, etc.) in the past 12 months? No 10/30/2024 7:53 PM Maribel Cheng R N Have you used any prescripti on drugs other than prescribed in the past 12 months? No 10/30/2024 7:53 PM Maribel Cheng R N * Patient Behaviors Answer Date of Assessment Author Groaning 11/02/2024 7:04 PM EDT Myesha Hurd RN * Care Plan - Safety Goals Question Answer Date of Assessment Author Free from fall injury Assess patient frequently for physical needs 11/02/2024 7:39 AM EDT Patricia Butt RN * Question Answer Date of Assessment Author Skin Color Ganado;Pale 11/02/2024 10:52 PM EDT Fern Henley RN * Modified Jesi Question Answer Date of Assessment Author Activity 2 11/02/2024 11:14 PM EDT Fern Henley RN Respiration 2 11/02/2024 11:14 PM EDT Fern Henley RN Circulation 2 11/02/2024 11:14 PM EDT Fern Henley RN Consciousness 1 11/02/2024 11:14 PM EDT Fern Hammonds RN Oxygen Saturation 2 11/02/2024 11:14 PM EDT Fern Snider RN Modified Jesi Score 9 11/02/2024 11:14 P M EDT Fern Snider RN * [...] Author 0 10/30/2024 7:54 PM EDT Mireya Merchatn RN * Malnutrition Score Answer Date of Assessment Author 0 10/30/2024 7:54 PM EDT Mireya Merchant RN documented as of this encounter Mental Status * [place] Agitation Sedation Scale Question Answer Entry Date Author [place] Agitation Sedation Scale (RASS) 0 11/02/2024 2:54 PM EDT Jory Sierra R N * Knox Coma Scale Question Answer Entry Date Author Best Eye Response Spontaneous 11/02/2024 7:39 AM EDT Patricia Butt RN Best Verbal Response Oriented 11/02/2024 7:39 AM E DT Patricia Butt RN Best Motor Response Follows commands 11/02/2024 7:39 A M EDT Patricia Butt RN Knox Coma Scale Score 15 11/02/2024 7:39 AM EDT Patricia Butt RN * Modified Jesi Question Answer Entry Date Author Activity 2 11/02/2024 11:14 PM EDT Fern Henley RN Respiration 2 11/02/2024 11:14 PM EDT Fern Henley RN Circulation 2 11/02/2024 11:14 PM EDT Fern Henley RN Consciousness 1 11/02/2024 11:14 PM EDT Gal lo, Fern, RN Oxygen Saturation 2 11/02/2024 11:14 PM EDT Fern Snider, DEE Modified Jesi Score 9 11/02/2024 11:14 P M EDT Fern Snider RN documented [...] She presented as a direct admission from [facility] on 10/30/2024 with severe, sharp, left-sided chest pain radiating to the left arm, associated with dizziness, shortness of breath, nausea, and vomiting following her daily infusion therapy. At [place], troponin was 390 and chest X-ray showed mild fluid overload. She was started on heparin infusion and transferred for higher level of care. On arrival to [facility], troponin was 337, hemoglobin 9.7, BNP 77, [...] scheduled cardiology follow-up on 11/14/2024. Dear MD Alas Bessie is advised to follow up with you within 1-2 weeks. Items to follow up in ambulatory setting: None Follow-up with: Cardiology Scheduled appointments: Future Appointments Date Time Provider Department Center 11/14/2024 3:25 PM [facility] 11/20/2024 2:30 PM Delphine Du NP [facility] 11/27/2024 2:15 PM Santa Wall CNP [facility] URO Second Fl 12/04/2024 10:00 AM MD [facility] Your medication list START taking these [...] as: Tylenol ALBUTEROL INHL ergocalciferol 1.25 MG (56910 Units) capsule Commonly known as: Vitamin D-2 escitalopram 20 mg tablet Commonly known as: Lexapro fentaNYL 25 mcg/hr Commonly known as: Duragesic fentaNYL 12 mcg/hr Commonly known as: Duragesic HYDROcodone-acetaminophen 5-325 mg tablet Commonly known as: Coxsackie hydrocortisone 10 mg tablet Commonly known as: [...] Medications These medications were sent to [facility] - [place], [place] - [address], [facility] [address] aspirin 81 mg chewable tablet atorvastatin 80 mg tablet clopidogrel 75 mg tablet metoclopramide 10 mg tablet metoprolol succinate XL 25 mg 24 hr tablet Juan is allergic to codeine, nsaids (non-steroidal anti-inflammatory drug), and adhesive. Disposition: Home-Health Care [facility] () Discharge Condition: Stable Code Status: Full [...] was 43 minutes. Signed Mauricio Garcia MD [facility] Medicine 11/07/2024 2:48 PM CC: MD [...] cholesterol);PO diet regular as tolerated. Intakes variable. Grainger, small meals. ONS. Dietary nutrition supplements BID (breakfast & dinner); Boost Glucose Control; Chocolate; 8 oz;Oral Dietary nutrition supplements Lunch; Gelatein; [place]; 4 oz; Oral [id number] only Adult Cyclic 3-in-1 TPN: 2,300 mL, [...] 11/06/2024 10:30 AM EDT Infusion Center Hematology/Oncology [address] [place] [address] [place] [address] Hodges dressing and cap change;Labs as needed per patient 11/10/2024 2:15 PM EDT Appointment [facility] Endoscopy - ENDO [address] [place] [address] [place] [address] [place] [address] EGD and tube exchange failure to thrive nausea and vomiting 11/13/2024 10:45 AM EDT Infusion Center Hematology/Oncology [address] [place] [address] [place] [address] Hodges dressing and cap change;Labs as needed per patient 11/20/2024 9:15 AM EDT Infusion Center Hematology/Oncology [facility] [place] [address] Hodges dressing and cap change;Labs as needed per patient 11/27/2024 9:00 AM EDT Infusion Center Hematology/Oncology [facility] [place] [address] Hodges dressing and cap change;Labs as needed per patient 11/30/2024 8:30 AM EDT [facility] [address] [address] Georgina Barkley MD [facility] [address] [address] HPN / VIRTUAL 12/04/2024 9:15 AM EDT Infusion Center Hematology/Oncology [address] [place] [address] Hodges dressing and cap change;Labs as needed [...] Everywhere. * Indwelling Urinary Catheter Care Adult Daso-ey-Zkrf (Welsh) documented in this encounter Medications at Time [...] 11/07/2024 5 ergocalciferol (Vitamin D-2) 1.25 MG (18575 Units) capsule Take 50,000 Units by mouth 1 (one) time per week. 5 fentaNYL (Duragesic) 12 mcg/hr Place 1 patch on the skin every 3rd (third) day. Takes 12 mcg and 25 mcg together every 3 days 5 HYDROcodone-acet aminophen (Coxsackie) 5-325 mg tablet Take 2 tablets by mouth every 4 (four) hours if needed for moderate-severe pain (4-10 pain score). 5 documented as of this encounter Progress Notes * Deepika Diallo - 11/07/2024 2:20 PM EDT discharge planning: to Home with [address] [facility] Patient came to this admission from their private residence in the community; they are reported to be managing their own TPN needs at home, with supplies being provided through [facility]. 1345 - Patient is discharging with a Costello, which is new this admission; Patient agreeable to [facility], no preference of provider, agreeable to mass referral - [facility] referral sent; awaiting replies [address] only accepting [facility] provider; added them to AVS 1512 AVS sent to [address], via [id number] system [id number] Patient had costello removed, still appropriate to have [facility] nursing; updated AVS sent to [address], [email or web address] system * Christina Rodriguez CNP - 11/07/2024 [...] 0 out of 10. 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 Patient states [...] Value Ventricular Rate 91 Atrial Rate 91 HI Interval 134 QRS DURATION 88 QT Interval 386 QTC CALCULATION(BAZETT) [address] [employer] 63 R-[employer] 35 T Wave [employer] 46 Impression Sinus rhythm with Premature supraventricular complexes Otherwise normal ECG When compared with ECG of 04-NOV-2024 13:40, Premature supraventricular complexes are now Present No results found for: CKTOTAL , CKMB , CKMBINDEX , TROPONINI Limited Echo (TTE) w/wo Limited Doppler, Color Flow, Imaging Agent, Strain, 3D, Bubble Study Result Date: 10/31/2024 1 1 [facility] Heart Station [address] [facility] [place] [address] [phone] (fax) Echocardiogram-[facility] Name: JUAN KONG Study Date: 10/31/2024 11:16 AM B/P: 106 mmHg/67 mmHg HR: 70 bpm Date of : 1990 [facility] Age: 34 year(s) Patient Room: [...] minimal pericardial effusion. Procedure Staff Reading Group: [facility] Assistant: DAVID Kearney, RDCS Ordering Physician: KY RITTER [...] for pt to see us in our [facility] on 11/14/24. Rest of care per primary team Cardiology will continue following along Christina Rodriguez APRN-[facility] Cardiovascular Medicine ADDENDUM: Pt reported her chest pain sx's were improved this afternoon. Pt okay to discharge from a cardiac standpoint. Follow-up as scheduled next week. Of note, discussed with Dr. Gilmore, can consider addition of Ranexa for recurrent chest pain if unable to increase Toprol or verapamil due to low BP. Christina Rodriguez APRN-[facility] Cardiovascular Medicine [1] Current Facility-Administered Medications: acetaminophen [...] Daily, Sid Cruz PA-C, 75 mg at 11/07/24 0900 glucose [...] MD, 1 patch at 11/05/24 1739 HYDROcodone-acetaminophen (Coxsackie) 5-325 mg per tablet 1 tablet, 1 tablet, oral, q4h PRN, 1 tablet at 11/03/24 1011 OR HYDROcodone-acetaminophen (Coxsackie) 5- 325 mg per tablet 2 tablet, [...] Dunn MD - 11/07/2024 6:36 AM EDT [facility] Vascular Surgery DAILY PROGRESS NOTE Subjective [...] on TPN presents a direct admission from [facility] with chief complaint of chest pain. [...] infiltrated over the right femoral artery. A 5-Guyanese Terumo sheath was placed in right femoral [...] was maintained at >250 seconds. A 5 Guyanese Cordis XB 3.0 guide was engaged to the left main. I decided to proceed with IVUS. I then advanced a Runthrough wire to the distal left anterior descending. Next, I advanced a LessThan3 IVUS catheter. IVUS imaging was performed and [...] infiltrated over the right femoral artery. A 6-Guyanese sheath was placed in right femoral artery. Coronary angiography was performed with a JL4 and then repeated after IC nitroglycerin 50 mcg x 2. At this time, it was apparent that the LAD had a moderate stenosis and IVUS and iFR were performed. Heparin anticoagulation was used for this procedure. ACT was maintained at >250 seconds. A 6 Guyanese xb3 was engaged to the L[place]. I [...] 1800, M-F. For urgent concerns, please call [phone], or ask the concrete batch plant operator to connect you to the on-order caller. For after-hours concerns, please page [phone], or ask the concrete batch plant operator to connect you to the on-order caller. Cosigned by Dominic Chappell DO at [...] Level of Function Prior Function Level of [place]: Independent with ADLs and functional transfers, Independent [...] the chair for support without cues from copywriter. Ambulation Ambulation: Yes Ambulation 1 Surface 1: [...] (gastroesophageal reflux disease) Sepsis due to Klebsiella ([facility]/HCC) Sepsis due to Enterococcus ([facility]/HCC) Gastroparesis Chronic pain syndrome MALT (mucosa associated lymphoid tissue) History of adrenal insufficiency Acquired hypothyroidism Chest pain Type 2 diabetes mellitus without complication, without long-term current use of insulin ([facility]) Primary hypertension Other hyperlipidemia Asthma IBS (irritable bowel syndrome) Median arcuate ligament syndrome S/P laparoscopic sleeve gastrectomy Protein calorie malnutrition Prolonged Q-T interval on ECG NSTEMI (non-ST elevated myocardial infarction) ([facility]) Spontaneous dissection of coronary artery Hematoma [2] [...] prn given 0933 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 No routine or PRN bowel [...] PO diet regular as tolerated. Intakes variable. Grainger, small meals. ONS. Dextrose 200 g AA [...] Once Comments: Please send Old Fashioned Hot [place] entree, with a side of green beans; [...] 11/02/24223411/01/24 1519 Dietary nutrition supplements Lunch; Gelatein; [place]; 4 oz; Oral Until discontinued Comments: When diet advances Question Answer Comment Deliver with Lunch Select supplement: Gelatein Flavor [place] Strength: 4 oz Route Oral 11/01/24 1519 11/01/24 1518 Dietary nutrition supplements BID (breakfast & dinner); Boost Glucose Control; Chocolate; 8 oz; Oral Until discontinued Comments: When diet advances Question Answer Comment Deliver with BID breakfast & dinner Select supplement: Boost Glucose Control Flavor: Chocolate Strength: 8 oz Route Oral 11/01/24 151 Nutrition Risk: High Nutrition Needs: Needs based on: ideal body weight (59.3 kg) Calorie needs: 7526-7992 kcals/day based on 25-30 kcal/kg Protein needs: [...] of Nutrition and Dietetics (AND) and the [place] Society of Enteral and Parenteral Nutrition (ASPEN). Treatment Plan: HPN schedule (MWF) Minor adjustments made based on current labs with plan to titrate to home order. Na Phos 30->20 mmol Continue current diet, snacks & ONS Goals: Advance TF to goal rate Weight maintenance Maintain visceral protein Nutrition-related labs (magnesium, phosphorus, BMP) wnl To reach the Clinical Dietitian, please utilize [employer] chat Wednesday-Wednesday from 8AM-4PM or call extension [phone]. For weekends (Wednesday-Wednesday) and hols, the Clinical Dietitian can be reached via pager [phone]) from 9AM-3PM. The Clinical Nutrition Department is unable to respond to [employer] chat messages on Sundays and s. [1] Allergies Allergen Reactions Codeine Nausea And Vomiting Nsaids (Non-Steroidal Anti-Inflammatory Drug) GI intolerance Adhesive Rash * Eduarda Bravo PA-C - 11/06/2024 9:03 AM EDT Images from the original note were not included. [facility] Surgical Intensive Care Unit Progress Note [...] 84.8 kg (186 lb 15.2 oz) (11/03) [place] Coma Scale Score: 15 I/O last 3 [...] Value Ventricular Rate 74 Atrial Rate 74 HI Interval 138 QRS DURATION 84 QT Interval 454 QTC CALCULATION(BAZETT) 503 P [employer] 54 R-[employer] 41 T Wave [employer] 77 Impression Normal sinus rhythm T abnormalities consider high lateral ischemia Mild ST elevation in V2 and V3 , consider acute septal injury Abnormal ECG Confirmed by Griffin Diaz ([id number]) on 11/02/2024 10:58:13 PM Assessment TThe patient is a 34 y.o. female who presented with an NSTEMI, was taken to the cath lab technologist x2 and hasa an expanding right groin [...] (placed patch every 72hours). Resume home PRN Coxsackie 5-325 Q4H, PRN 650 mg Q8H -On [...] 0 out of 10. 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 Patient states [...] Value Ventricular Rate 100 Atrial Rate 100 HI Interval 132 QRS DURATION 94 QT Interval 382 QTC CALCULATION(BAZETT) 492 P [employer] 60 R-[employer] 34 T Wave [employer] 58 Impression Normal sinus rhythm Statement not found (1146) Abnormal ECG When compared with ECG of 02-NOV-2024 13:02, No significant change was found Confirmed by Erlin Geller (80) on 11/05/2024 12:04:52 AM No results found for: CKTOTAL , CKMB , CKMBINDEX , TROPONINI Limited Echo (TTE) w/wo Limited Doppler, Color Flow, Imaging Agent, Strain, 3D, Bubble Study Result Date: 10/31/2024 1 1 [facility] Heart Station [address] [place], [place] [phone] (fax) Echocardiogram-[facility] Name: JUAN KONG Study Date: 10/31/2024 11:16 AM B/P: 106 mmHg/67 mmHg HR: 70 bpm Date of : 1990 [facility]. Age: 34 year(s) Patient Room: [...] minimal pericardial effusion. Procedure Staff Reading Group: [facility] Program Assistant: Raegan Cardona, BS, RDCS Ordering Physician: KY [...] Pena DO Internal Medicine Resident, PGY-2 [facility] 8:20 AM 11/06/24 [1] Current Facility-Administered Medications: acetaminophen (Tylenol) tablet 650 mg, 650 mg, oral, q8h PRN, Sid Cruz, PA-C, 650 mg at 11/05/24 1633 albuterol 90 mcg/actuation inhaler 2 puff, 2 puff, inhalation, q6h PRN, Debbie Luna CNP aspirin EC tablet 81 mg, 81 mg, oral, Daily, Sid Cruz, PA-C, 81 mg at 11/05/24 1021 atorvastatin (Lipitor) tablet 80 mg, 80 mg, oral, Nightly, Rosa Willoughby PA-C, 80 mg at 11/05/24 1766 clopidogrel (Plavix) tablet 75 mg, 75 mg, oral, Daily, Sid Cruz PA-C, 75 mg at 11/05/24 1021 glucose chewable tablet 24 g, 24 g, oral, q15 min PRN OR dextrose 50 % in water (D50W) syringe 25 g, 25 g, intravenous, q15 min PRN, Debbie Luna, ELASTIC ATTACHER OVERLOCK, 25 g at 10/31/24 1228 diphenhydrAMINE (BENADryl) [...] Dee MD, 25mcg at 11/06/24 0700 HYDROcodone-acetaminophen (Coxsackie) 5-325 mg per tablet 1 tablet, 1 tablet, oral, q4h PRN, 1 tablet at 11/03/24 1011 OR HYDROcodone-acetaminophen (Coxsackie) 5- 325 mg per tablet 2 tablet, 2 tablet, oral, q4h PRN, yK Ritter MD, 2 tablet at 11/06/24 0553 hydrocortisone (Cortef) tablet 10 mg, 10 mg, oral, Daily, Debbie Luna, ELASTIC ATTACHER OVERLOCK, 10 mg at 11/05/24 1022 HYDROmorphone (Dilaudid) [...] 10 mL, intravenous, q8h PRN, Debbie Pirkl, ELASTIC ATTACHER OVERLOCK sucralfate (Carafate) tablet 1 g, 1 g, [...] 200 mg, intramuscular, q6h PRN, Debbie Luna, ELASTIC ATTACHER OVERLOCK, 200 mg at 11/03/24 0018 verapamil (Calan) [...] combination Sebastian Peña MD, ScM, MSc Cardiac Flight Operations Inspector Email: [email or web address] * Anna Etienne MD - 11/06/2024 7:38 AM EDT Images from the original note were not included. [facility] Vascular Surgery DAILY PROGRESS NOTE Subjective [...] MD General Surgery PGY-4 For non-urgent questions, [employer] Chat may be used 0600 - 1800, M-F. For urgent concerns, please call [phone], or ask the concrete batch plant operator to connect you to the on-order caller. For after-hours concerns, please page [phone], or ask the concrete batch plant operator to connect you to the on-order caller. Cosigned by Dominic Chappell DO at 11/06/2024 1:53 PM EDT * Mikayla Jennings PA-C - 11/05/2024 2:14 PM EDT Images from the original note were not included. [facility] Vascular Surgery DAILY PROGRESS NOTE Subjective [...] Units 11/05/24 0901 11/05/24 0348 11/05/24 0054 11/04/24 [...] last 7 days Lab Units 11/05/24 0348 11/04/24 2017 11/04/24 1338 11/04/24 0505 11/03/24 0446 SODIUM mmol/L [...] PA-C Vasular Surgery and Wound Care x [phone] For non-urgent questions, [employer] Chat may be used 0600 - 1800, M-F. For urgent concerns, please call [phone], or ask the concrete batch plant operator to connect you to the on-order caller. For after-hours concerns, please page [phone], or ask the concrete batch plant operator to connect you to the on-order caller. * Christina Rodriguez CNP - 11/05/2024 [...] 0 out of 10. 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 Patient states [...] Value Ventricular Rate 100 Atrial Rate 100 HI Interval 132 QRS DURATION 94 QT Interval 382 QTC CALCULATION(BAZETT) 492 [address] [employer] 60 R-[employer] 34 T Wave [employer] 58 Impression Normal sinus rhythm Statement not found (1146) Abnormal ECG When compared with ECG of 02-NOV-2024 13:02, No significant change was found Confirmed by Erlin Geller (80) on 11/05/2024 12:04:52 AM No results found for: CKTOTAL , CKMB , CKMBINDEX , TROPONINI Limited Echo (TTE) w/wo Limited Doppler, Color Flow, Imaging Agent, Strain, 3D, Bubble Study Result Date: 10/31/2024 1 1 [facility] Heart Station [address] [place], [place] [phone] (fax) Echocardiogram-[facility] Name: JUAN KONG Study Date: 10/31/2024 11:16 AM B/P: 106 mmHg/67 mmHg HR: 70 bpm Date of : 1990 [facility]. Age: 34 year(s) Patient Room: [facility] Weight: 181 lb. Gender: Female Patient [...] minimal pericardial effusion. Procedure Staff Reading Group: [facility] Assistant: Raegan Cardona, BS, RDCS Ordering Physician: KY RITTER Wall Motion S cores -1 - hyperkinesia, 0 - not evaluated, [...] along Discussed plan with pt, primary RN, irrigation laborer Dr. Alejandro and freight car loader Dr. Altamirano. Christina Rodriguez APRN-[facility] Cardiovascular Medicine [1] Current Facility-Administered Medications: acetaminophen (Tylenol) tablet 650 mg, 650 mg, oral, q8h PRN, Sdi Cruz PA-C Adult Cyclic 3-in-1 TPN, 2,300 [...] Dee MD, 25mcg at 11/05/24 1446 HYDROcodone-acetaminophen (Coxsackie) 5-325 mg per tablet 1 tablet, 1 tablet, oral, q4h PRN, 1 tablet at 11/03/24 1011 OR HYDROcodone-acetaminophen (Coxsackie) 5- 325 mg per tablet 2 tablet, 2 tablet, oral, q4h PRN, Ky Rittre MD, 2 tablet at 11/05/24 1138 hydrocortisone [...] mg, 40 mg, oral, BID AC, HENNY Hendrickson-C, 40 mg at 11/05/24 0641 potassium chloride [...] from the original note were not included. [facility] Vascular Surgery DAILY PROGRESS NOTE Subjective [...] infiltrated over the right femoral artery. A 6-Guyanese sheath was placed in right femoral artery. Coronary angiography was performed with a JL4 and then repeated after IC nitroglycerin 50 mcg x 2. At this time, it was apparent that the LAD had a moderate stenosis and IVUS and iFR were performed. Heparin anticoagulation was used for this procedure. ACT was maintained at >250 seconds. A 6 Guyanese xb3 was engaged to the [place]. I [...] informed consent. she was brought to the cath lab technologist in a fasting state. The left wrist area was prepped and draped in usual fashion. Micropuncture technique was used for access in the radial artery. A 5-Guyanese x 11 cm sheath was placed. Verapamil was given through the sheath, and heparin was administered intravenously. A 5 Guyanese JR4 diagnostic catheter was advanced and this [...] catheter was then downsized to a 4 Guyanese JR4 diagnostic catheter however this also was not able to engage the right coronary artery. Catheter was exchanged to a JR4 diagnostic catheter which could not engage the left coronary artery. Catheter was exchanged to a 4 Guyanese JL 3.5 diagnostic catheter which eventually was able to engage the left coronary artery. Angiography was performed in multiple views. Catheter was exchanged over the wire to a 4 Guyanese 3DRC catheter. Multiple attempts were made to [...] PA-C Vasular Surgery and Wound Care x [phone] For non-urgent questions, [employer] Chat may be used 0600 - 1800, M-F. For urgent concerns, please call [phone], or ask the concrete batch plant operator to connect you to the on-order caller. For after-hours concerns, please page [phone], or ask the concrete batch plant operator to connect you to the on-order caller. * Marie Alejandro MD - 11/04/2024 [...] 0 out of 10. 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 Patient states [...] Value Ventricular Rate 74 Atrial Rate 74 HI Interval 138 QRS DURATION 84 QT Interval 454 QTC CALCULATION(BAZETT) 503 P [employer] 54 R-[employer] 41 T Wave [employer] 77 Impression Normal sinus rhythm T abnormalities [...] Bubble Study Result Date: 10/31/2024 1 1 [facility] Heart Station [address] [place] [address] [phone] (fax) Echocardiogram-[facility] Name: JUAN KONG Study Date: 10/31/2024 11:16 AM B/P: 106 mmHg/67 mmHg HR: 70 bpm Date of : 1990 [facility]. Age: 34 year(s) Patient Room: [facility] Weight: 181 lb. Gender: Female Patient [...] minimal pericardial effusion. Procedure Staff Reading Group: [facility] Assistant: DAVID Kearney, RDCS Ordering Physician: KY RITTER [...] infiltrated over the right femoral artery. A 6-Guyanese sheath was placed in right femoral artery. Coronary angiography was performed with a JL4 and then repeated after IC nitroglycerin 50 mcg x 2. At this time, it was apparent that the LAD had a moderate stenosis and IVUS and iFR were performed. Heparin anticoagulation was used for this procedure. ACT was maintained at >250 seconds. A 6 Guyanese xb3 was engaged to the [place]. I [...] informed consent. she was brought to the cath lab technologist in a fasting state. The left wrist area was prepped and draped in usual fashion. Micropuncture technique was used for access in the radial artery. A 5-Guyanese x 11 cm sheath was placed. Verapamil was given through the sheath, and heparin was administered intravenously. A 5 Guyanese JR4 diagnostic catheter was advanced and this [...] catheter was then downsized to a 4 Guyanese JR4 diagnostic catheter however this also was not able to engage the right coronary artery. Catheter was exchanged to a JR4 diagnostic catheter which could not engage the left coronary artery. Catheter was exchanged to a 4 Guyanese JL 3.5 diagnostic catheter which eventually was able to engage the left coronary artery. Angiography was performed in multiple views. Catheter was exchanged over the wire to a 4 Guyanese 3DRC catheter. Multiple attempts were made to [...] least in part, completed using a voice chart reader system. Every effort was made to ensure accuracy. However, inadvertent computerized chart reader errors may be present. Lisa Pena DO Internal Medicine Resident, PGY-2 [facility] 8:53 AM 11/04/24 Addendum Pt was reported to have chest pain and diaphoresis. EKG unremarkable, in fact st elevations are no longer present. Will add verapamil and recommended blood transfusions given hemoglobin < 8 Marie Alejandro MD PGY-6 Residential Green Building Designer [facility] Pager # [phone] [1] Current Facility-Administered Medications: acetaminophen (Tylenol) tablet 650 mg, 650 mg, oral, q8h PRN, Sid McQuillin, PA-C Adult Cyclic 3-in-1 TPN, 2,300 mL, intravenous, Cyclic TPN, Kaye Craig RD, Last Rate: 159 mL/hr at 11/04/24 0552, Rate Verify at 11/04/24 0552 albuterol 90 mcg/actuation inhaler 2 puff, 2 puff, inhalation, q6h PRN, Debbie Luna, ELASTIC ATTACHER OVERLOCK aspirin EC tablet 81 mg, 81 mg, oral, Daily, Sid McQuillin, PA-C, 81 mg at 11/03/24 1319 atorvastatin (Lipitor) tablet 80 mg, 80 mg, oral, Nightly, Rosa Willoughby, PA-C, 80 mg at 11/03/24 2202 calcium gluc in NaCl, iso-osm 1 gram/100 mL solution 1 g, 1 g, intravenous, q1h, Timothy Dee MD clopidogrel (Plavix) tablet 75 mg, 75 mg, oral, Daily, Sid PorterQuillin, PA-C, 75 mg at 11/03/24 1319 glucose chewable tablet 24 g, 24 g, oral, q15 min PRN OR dextrose 50 % in water (D50W) syringe 25 g, 25 g, intravenous, q15 min PRN, Debbie Luna ELASTIC ATTACHER OVERLOCK, 25 g at 10/31/24 1228 diphenhydrAMINE (BENADryl) injection 12.5 mg, 12.5 mg, intravenous, q6h PRN, Ky Ritter MD, 12.5 mg at 11/04/24 0336 enoxaparin (Lovenox) syringe 30 mg, 30 mg, subcutaneous, BID, Sid Haskinsillin, PA-C, 30 mg at 11/03/24 2202 escitalopram (Lexapro) tablet 20 mg, 20 mg, oral, Daily, Rosa Willoughby PA-C, 20 mg at 11/03/24 1012 fentaNYL (Duragesic) 25 mcg/hr 1 patch, 1 patch, transdermal, q72h, Rosa Willoughby PA-C, 1 patch at 11/03/24 1128 HYDROcodone-acetaminophen (Coxsackie) 5-325 mg per tablet 1 tablet, 1 tablet, oral, q4h PRN, 1 tablet at 11/03/24 1011 OR HYDROcodone-acetaminophen (Coxsackie) 5- 325 mg per tablet 2 tablet, 2 tablet, oral, q4h PRN, Ky Ritter MD, 2 tablet at 11/04/24 0336 hydrocortisone (Cortef) tablet 10 mg, 10 mg, oral, Daily, Debbie Luna ELASTIC ATTACHER OVERLOCK, 10 mg at 11/03/24 1014 HYDROmorphone (Dilaudid) injection 0.2 mg, 0.2 mg, intravenous, q3h PRN, Sid Cruz PA-C, 0.2 mg at 11/04/24 0512 hydrOXYzine pamoate (Vistaril) capsule 50 mg, 50 mg, oral, Nightly PRN, Debbie Luna, ELASTIC ATTACHER OVERLOCK insulin lispro (HumaLOG) injection 0-5 Units, 0-5 [...] 5 mg, oral, Nightly PRN, Debbie Mahmoodkl, ELASTIC ATTACHER OVERLOCK methocarbamol (Robaxin) tablet 750 mg, 750 mg, [...] 10 mL, intravenous, q8h PRN, Debbie Pirkl, ELASTIC ATTACHER OVERLOCK sucralfate (Carafate) tablet 1 g, 1 g, oral, Before meals & nightly, Rosa Willoughby PA-C, 1 g at 11/04/24 0512 topiramate (Topamax) tablet 100 mg, 100 mg, oral, BID, Rosa Willoughby PA-C, 100 mg at 11/03/24 221 traMADol (Ultram) tablet 50 mg, 50 mg, oral, q6h PRN, Debbiejossie Mahmoodkl, ELASTIC ATTACHER OVERLOCK, 50 mg at 11/03/24 1633 traZODone (Desyrel) tablet 100 mg, 100 mg, oral, Nightly, Rosa Willoughby PA-C, 100 mg at 11/03/24 2202 trimethobenzamide (Tigan) injection 200 mg, 200 mg, intramuscular, q6h PRN, Debbie Luna, ELASTIC ATTACHER OVERLOCK, 200 mg at 11/03/24 0018 Cosigned by Salty Hyatt MD at 11/05/2024 5:02 PM EDT Associated attestation - Salty Hyatt MD - 11/05/2024 5:02 PM EDT Agree with the assessment and plan as documented by the irrigation laborer * Michael Dunn MD - 11/03/2024 6:19 PM EDT Images from the original note were not included. [facility] Vascular Surgery DAILY PROGRESS NOTE Subjective [...] infiltrated over the right femoral artery. A 6-Guyanese sheath was placed in right femoral artery. Coronary angiography was performed with a JL4 and then repeated after IC nitroglycerin 50 mcg x 2. At this time, it was apparent that the LAD had a moderate stenosis and IVUS and iFR were performed. Heparin anticoagulation was used for this procedure. ACT was maintained at >250 seconds. A 6 Guyanese xb3 was engaged to the [place]. I then advanced a 0.014 guidewire to the distal left anterior descending. IVUS imaging was performed with a WebLayersinity catheter after additional IC nitroglycerin and IV [...] informed consent. she was brought to the cath lab technologist in a fasting state. The left wrist area was prepped and draped in usual fashion. Micropuncture technique was used for access in the radial artery. A 5-Guyanese x 11 cm sheath was placed. Verapamil was given through the sheath, and heparin was administered intravenously. A 5 Guyanese JR4 diagnostic catheter was advanced and this [...] catheter was then downsized to a 4 Guyanese JR4 diagnostic catheter however this also was not able to engage the right coronary artery. Catheter was exchanged to a JR4 diagnostic catheter which could not engage the left coronary artery. Catheter was exchanged to a 4 Guyanese JL 3.5 diagnostic catheter which eventually was able to engage the left coronary artery. Angiography was performed in multiple views. Catheter was exchanged over the wire to a 4 Guyanese 3DRC catheter. Multiple attempts were made to [...] PGY-1 Vascular Surgery Service For non-urgent questions, [employer] Chat may be used 0600 - 1800, M-F. For urgent concerns, please call [phone], or ask the concrete batch plant operator to connect you to the on-order caller. For after-hours concerns, please page [phone], or ask the concrete batch plant operator to connect you to the on-order caller. Cosigned by Dominic Chappell DO at [...] 0 out of 10. 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 Patient states [...] % 84.8 kg (186 lb 15.2 oz) 11/02/242354 124/77 -- -- 85 -- 99 % -- 11/02/242351 -- -- -- 89 17 -- -- 11/02/24 2328 118/61 -- -- 81 11 -- -- 11/02/24 2314 126/69 -- -- 87 13 -- -- 11/02/248 125/69 -- -- 80 15 -- -- [...] -- -- 102 14 100 % -- 11/02/240 93/57 -- -- 96 16 98 % [...] 106/68 -- -- 97 14 -- -- 09/18/25 1906 112/80 -- -- 90 21 -- -- 11/02/24 1903 114/75 -- -- 94 22 100 % -- 11/02/24 1900 116/77 -- -- 95 (!) 27 100 % -- 11/02/24 1859 109/81 -- -- 100 15 100 % -- 11/02/24 1848 99/78 -- -- 85 19 100 % -- 11/02/24 1845 100/74 -- -- 87 23 -- -- 11/02/24 184 104/63 -- -- 88 (!) 9 100 % -- 11/02/24 1840 92/59 -- -- 83 15 100 % -- 11/02/24 1830 103/56 -- -- 90 14 100 % -- 11/02/24 181 101/66 -- -- 81 14 100 % [...] 124/77 -- -- 68 13 -- -- 09/18/25 1712 114/78 -- -- 70 (!) 9 [...] Value Ventricular Rate 74 Atrial Rate 74 HI Interval 138 QRS DURATION 84 QT Interval 454 QTC CALCULATION(BAZETT) 503 P [employer] 54 R-[employer] 41 T Wave [employer] 77 Impression Normal sinus rhythm T abnormalities [...] Bubble Study Result Date: 10/31/2024 1 1 [facility] Heart Station [address] [place] [address] [phone] (fax) Echocardiogram-[facility] Name: JUAN KONG Study Date: 10/31/2024 11:16 AM B/P: 106 mmHg/67 mmHg HR: 70 bpm Date of : 1990 [facility]. Age: 34 year(s) Patient Room: [...] minimal pericardial effusion. Procedure Staff Reading Group: [facility] Assistant: DAVID Kearney, RDCS Ordering Physician: KY RITTER [...] infiltrated over the right femoral artery. A 6-Guyanese sheath was placed in right femoral artery. Coronary angiography was performed with a JL4 and then repeated after IC nitroglycerin 50 mcg x 2. At this time, it was apparent that the LAD had a moderate stenosis and IVUS and iFR were performed. Heparin anticoagulation was used for this procedure. ACT was maintained at >250 seconds. A 6 Guyanese xb3 was engaged to the [place]. I [...] informed consent. she was brought to the cath lab technologist in a fasting state. The left wrist area was prepped and draped in usual fashion. Micropuncture technique was used for access in the radial artery. A 5-Guyanese x 11 cm sheath was placed. Verapamil was given through the sheath, and heparin was administered intravenously. A 5 Guyanese JR4 diagnostic catheter was advanced and this [...] catheter was then downsized to a 4 Guyanese JR4 diagnostic catheter however this also was not able to engage the right coronary artery. Catheter was exchanged to a JR4 diagnostic catheter which could not engage the left coronary artery. Catheter was exchanged to a 4 Guyanese JL 3.5 diagnostic catheter which eventually was able to engage the left coronary artery. Angiography was performed in multiple views. Catheter was exchanged over the wire to a 4 Guyanese 3DRC catheter. Multiple attempts were made to [...] least in part, completed using a voice chart reader system. Every effort was made to ensure accuracy. However, inadvertent computerized chart reader errors may be present. Lisa Pena DO Internal Medicine Resident, PGY-2 [facility] 11:18 AM 11/03/24 [1] Current Facility-Administered Medications: acetaminophen (Tylenol) tablet 650 mg, 650 mg, oral, q8h PRN, Sid Cruz PA-C Adult Cyclic 3-in-1 TPN, 2,200 mL, intravenous, Cyclic TPN, Kaye Craig RD albuterol 90 mcg/actuation inhaler 2 puff, 2 puff, inhalation, q6h PRN, Debbiejossie Luna, ELASTIC ATTACHER OVERLOCK atorvastatin (Lipitor) tablet 80 mg, 80 mg, oral, Nightly, Rosa Willoughby PA-C glucose chewable tablet 24 g, 24 g, oral, q15 min PRN OR dextrose 50 % in water (D50W) syringe 25 g, 25 g, intravenous, q15 min PRN, Debbiejossie Mahmoodkl, ELASTIC ATTACHER OVERLOCK, 25 g at 10/31/24 1228 diphenhydrAMINE (BENADryl) [...] patch, transdermal, q72h, Rosa Willoughby PA-C HYDROcodone-acetaminophen (Coxsackie) 5-325 mg per tablet 1 tablet, 1 tablet, oral, q4h PRN, 1 tablet at 11/03/24 1011 OR HYDROcodone-acetaminophen (Coxsackie) 5- 325 mg per tablet 2 tablet, 2 tablet, oral, q4h PRN, yK Ritter MD, 2 tablet at 11/03/24 0608 hydrocortisone (Cortef) tablet 10 mg, 10 mg, oral, Daily, Debbie Luna CNP, 10 mg at 11/03/24 1014 hydrOXYzine pamoate (Vistaril) capsule 50 mg, 50 mg, oral, Nightly PRN, Debbie Luna ELASTIC ATTACHER OVERLOCK insulin lispro (HumaLOG) injection 0-5 Units, 0-5 [...] 5 mg, oral, Nightly PRN, Debbie Pirkl, ELASTIC ATTACHER OVERLOCK methocarbamol (Robaxin) tablet 750 mg, 750 mg, oral, 4x daily, Rosa Willoughby PA-C, 750 mg at 11/03/24 1013 metoclopramide (Reglan) tablet 10 mg, 10 mg, oral, Daily PRN, Debbie Luna, ELASTIC ATTACHER OVERLOCK, 10 mg at 11/03/24 0840 metoprolol succinate [...] 10 mL, intravenous, q8h PRN, Debbie Mahmoodkl, ELASTIC ATTACHER OVERLOCK sucralfate (Carafate) tablet 1 g, 1 g, oral, Before meals & nightly, Rosa Willoughby PA-C, 1 g at 11/03/24 1013 topiramate (Topamax) tablet 100 mg, 100 mg, oral, BID, Rosa Willoughby PA-C, 100 mg at 11/03/24 1013 traMADol (Ultram) tablet 50 mg, 50 mg, oral, q6h PRN, Debbiejossie Mahmoodkl, ELASTIC ATTACHER OVERLOCK, 50 mg at 11/03/24 0838 traZODone (Desyrel) tablet 100 mg, 100 mg, oral, Nightly, Rosa Willoughby PA-C trimethobenzamide (Tigan) injection 200 mg, 200 mg, intramuscular, q6h PRN, Debbie Mahmoodcarlee, ELASTIC ATTACHER OVERLOCK, 200 mg at 11/03/24 0018 Cosigned by [...] and coronary intervention Katie Altamirano MD, MPH, [facility], [facility], [facility] Interventional Cardiology Pager Email: [email or web address] * Sid Cruz PA-C - 11/03/2024 8:12 AM EDT Images from the original note were not included. [facility] Surgical Intensive Care Unit Progress Note [...] thrive who presented as a transfer from [place]. She had an NSTEMI and underwent a [...] 84.8 kg (186 lb 15.2 oz) (11/03) [place] Coma Scale Score: 15 I/O last 3 [...] Value Ventricular Rate 74 Atrial Rate 74 HI Interval 138 QRS DURATION 84 QT Interval 454 QTC CALCULATION(BAZETT) 503 P [employer] 54 R-[employer] 41 T Wave [employer] [employer] 77 Impression Normal sinus rhythm T abnormalities consider high lateral ischemia Mild ST elevation in V2 and V3 , consider acute septal injury Abnormal ECG Confirmed by Griffin Diaz (102) on 11/02/2024 10:58:13 PM Assessment TThe patient is a 34 y.o. female who presented with an NSTEMI, was taken to the cath lab technologist x2 and hasa an expanding right groin [...] (placed patch every 72hours). Resume home PRN Coxsackie 5-325 Q4H, PRN 650 mg Q8H -On [...] from the original note were not included. [facility] Medicine Daily Progress Note - 11/02/2024 1:27 PM; Room: [facility]7/3187-01 Admission: 10/30/2024 6:28 PM; Length of stay: 3 days THE HOSPITALIST TEAM PREFERS TO USE [employer] CHAT FOR NON-URGENT COMMUNICATION 7AM- 7PM. IF I DO NOT RESPOND WITHIN 20 MINUTES OR URGENT MATTERS, PLEASE CALL THROUGH THE [employer]. FROM 7PM-7AM, PLEASE PAGE [phone](COVR). Code Status: Full Code Barriers to Discharge: [...] pain today patient brought urgently back to [facility] Prolonged Q-T interval on ECG -QT mildly [...] LDL 73 10/31/2024 No results found for: [id number] , IRON , TIBC , C3 , [...] informed consent. she was brought to the cath lab technologist in a fasting state. The left wrist area was prepped and draped in usual fashion. Micropuncture technique was used for access in the radial artery. A 5-Guyanese x 11 cm sheath was placed. Verapamil was given through the sheath, and heparin was administered intravenously. A 5 Guyanese JR4 diagnostic catheter was advanced and this [...] catheter was then downsized to a 4 Guyanese JR4 diagnostic catheter however this also was not able to engage the right coronary artery. Catheter was exchanged to a JR4 diagnostic catheter which could not engage the left coronary artery. Catheter was exchanged to a 4 Guyanese JL 3.5 diagnostic catheter which eventually was able to engage the left coronary artery. Angiography was performed in multiple views. Catheter was exchanged over the wire to a 4 Guyanese 3DRC catheter. Multiple attempts were made to [...] Self Care () Signed Ky Ritter MD [facility] Medicine 11/02/2024 1:27 PM * LIA Shetty - 11/02/2024 9:55 AM EDT Discharge Planning Patient is medically ready for discharge. MIRYAM received information from [facility] patient was being served through their [place] branch. MIRYAM sent referral to them through [facility]. * Lisa Pena DO - 11/02/2024 [...] She is getting TPN at bedside. History: Omak M Jose is a 34 y.o. female w/ PMHx of HTN, HLD, asthma, RICHAR, hypothyroidism, GERD, IBS, fibromyalgia, T2DM, median arcuate ligament syndrome s/p celiac plexus block and MALS release, morbid obesity s/p sleeve gastrectomy, extensive chronic adhesions and recurrent obstructions, and gastroparesis s/p multiple infusions and J-tube C/B infection and removal who came as a direct admission from [facility] due to chest pain. Patient states [...] Value Ventricular Rate 76 Atrial Rate 76 HI Interval 132 QRS DURATION 84 QT Interval 444 QTC CALCULATION(BAZETT) 499 P [employer] 72 R-[employer] 50 T Wave [employer] [employer] 89 Impression Normal sinus rhythm T cahnges, consider anterior and high lateral ischemia Prolonged QT Abnormal ECG Confirmed by Griffin Diaz (102) on 11/01/2024 11:37:39 PM No results found for: CKTOTAL , CKMB , CKMBINDEX , TROPONINI Limited Echo (TTE) w/wo Limited Doppler, Color Flow, Imaging Agent, Strain, 3D, Bubble Study Result Date: 10/31/2024 1 1 [facility] Heart Station [address] [place] [address] [phone] (fax) Echocardiogram-[facility] Name: JUAN KONG Study Date: 10/31/2024 11:16 AM B/P: 106 mmHg/67 mmHg HR: 70 bpm Date of : 1990 [facility]. Age: 34 year(s) Patient Room: [...] minimal pericardial effusion. Procedure Staff Reading Group: [facility] Assistant: DAVID Kearney, RDCS Ordering Physician: KY RITTER [...] informed consent. she was brought to the cath lab technologist in a fasting state. The left wrist area was prepped and draped in usual fashion. Micropuncture technique was used for access in the radial artery. A 5-Guyanese x 11 cm sheath was placed. Verapamil was given through the sheath, and heparin was administered intravenously. A 5 Guyanese JR4 diagnostic catheter was advanced and this [...] catheter was then downsized to a 4 Guyanese JR4 diagnostic catheter however this also was not able to engage the right coronary artery. Catheter was exchanged to a JR4 diagnostic catheter which could not engage the left coronary artery. Catheter was exchanged to a 4 Guyanese JL 3.5 diagnostic catheter which eventually was able to engage the left coronary artery. Angiography was performed in multiple views. Catheter was exchanged over the wire to a 4 Guyanese 3DRC catheter. Multiple attempts were made to [...] least in part, completed using a voice chart reader system. Every effort was made to ensure accuracy. However, inadvertent computerized chart reader errors may be present. Lisa Pena DO Internal Medicine Resident, PGY-2 [facility] 9:08 AM 11/02/24 [1] Current Facility-Administered Medications: acetaminophen (Tylenol) tablet 650 mg, 650 mg, oral, q6h PRN, Debbie Luna CNP Adult Cyclic 3-in-1 TPN, 2,300 mL, intravenous, Cyclic TPN, Kaye Craig RD, Last Rate: 79.8 mL/hrat 11/02/24 08, [...] MD, 5,000 Units at 11/02/24 0556 HYDROcodone-acetaminophen (Coxsackie) 5-325 mg per tablet 1 tablet, 1 tablet, oral, q4h PRN, Debbie Luna, ELASTIC ATTACHER OVERLOCK, 1 tablet at 11/02/24 0556 hydrocortisone (Cortef) tablet 10 mg, 10 mg, oral, Daily, Debbie Pirkl, ELASTIC ATTACHER OVERLOCK, 10 mg at 11/02/24 0856 hydrOXYzine pamoate (Vistaril) capsule 50 mg, 50 mg, oral, Nightly PRN, Debbiejossie Luna, ELASTIC ATTACHER OVERLOCK insulin lispro (HumaLOG) injection 0-5 Units, 0-5 Units, subcutaneous, TID with meals AND insulin lispro (HumaLOG) injection 0-4 Units, 0-4 Units, subcutaneous, Nightly, Debbie Luna, ELASTIC ATTACHER OVERLOCK levothyroxine (Synthroid, Levoxyl) tablet 75 mcg, 75 mcg, oral, Daily before breakfast, Debbie Pirkl, ELASTIC ATTACHER OVERLOCK, 75 mcg at 11/02/24 0556 liothyronine (Cytomel) tablet 5 mcg, 5 mcg, oral, Daily, Debbiejossie Luna, ELASTIC ATTACHER OVERLOCK, 5 mcg at 11/02/24 0857 melatonin tablet 5 mg, 5 mg, oral, Nightly PRN, Debbiejossie Mahmoodkl, ELASTIC ATTACHER OVERLOCK methocarbamol (Robaxin) tablet 750 mg, 750 mg, oral, 4x daily, Debbie Cheryl, ELASTIC ATTACHER OVERLOCK, 750 mg at 11/02/24 0856 metoclopramide (Reglan) tablet 10 mg, 10 mg, oral, Daily PRN, Debbie Luna, ELASTIC ATTACHER OVERLOCK metoprolol succinate XL (Toprol-XL) 24 hr split tablet 12.5 mg, 12.5 mg, oral, Daily, Ky Ritter MD, 12.5 mg at 11/02/24 0856 mirtazapine (Remeron) tablet 45 mg, 45 mg, oral, Nightly, Debbie Luna, ELASTIC ATTACHER OVERLOCK, 45 mg at 11/01/24 2223 pantoprazole (ProtoNix) EC tablet 40 mg, 40 mg, oral, BID AC, Debbie kl, ELASTIC ATTACHER OVERLOCK, 40 mg at 11/02/24 0556 sodium chloride 0.9 % infusion, 100 mL/hr, intravenous, Continuous, Janet Soto MD, Stopped at 11/02/24 0841 Insert peripheral IV, , , Once AND Saline lock IV, , , Once AND sodium chloride flush 10 mL, 10 mL, intravenous, q8h PRN, Debbie Pirkl, ELASTIC ATTACHER OVERLOCK sucralfate (Carafate) tablet 1 g, 1 g, oral, Before meals & nightly, Debbie Pirkl, ELASTIC ATTACHER OVERLOCK, 1 g at 11/02/24 0556 topiramate (Topamax) tablet 100 mg, 100 mg, oral, BID, Debbie Pirkl, ELASTIC ATTACHER OVERLOCK, 100 mg at 11/02/24 0856 traMADol (Ultram) tablet 50 mg, 50 mg, oral, q6h PRN, Debbie Pirkl, ELASTIC ATTACHER OVERLOCK, 50 mg at 11/02/24 0859 traZODone (Desyrel) tablet 100 mg, 100 mg, oral, Nightly, Debbie Pirkl, ELASTIC ATTACHER OVERLOCK, 100 mg at 11/01/24 2151 trimethobenzamide (Tigan) injection 200 mg, 200 mg, intramuscular, q6h PRN, Debbie Pirkl, ELASTIC ATTACHER OVERLOCK, 200 mg at 11/01/24 2019 Cosigned by [...] and/or stent placement. Katie Altamirano MD, MPH, [facility], [facility], [facility] Interventional Cardiology Pager Email: [email or web address] * LIA Shetty - 11/01/2024 10:45 AM EDT MIRYAM consult for Home TPN supplies upon discharge Patient will be discharged with continued need for home TPN services. Before admission service provided by [facility]. SW sent referral to them through [facility] to confirm ability to continue services. * Ky Ritter MD - 11/01/2024 7:33 AM EDT Images from the original note were not included. / Hospital Medicine Daily Progress Note - 11/01/2024 7:33 AM; Room: [address] [place] [address] Admission: 10/30/2024 6:28 PM; Length of stay: 2 days THE HOSPITALIST TEAM PREFERS TO USE [employer] CHAT FOR NON-URGENT COMMUNICATION 7AM- 7PM. IF I DO NOT RESPOND WITHIN 20 MINUTES OR URGENT MATTERS, PLEASE CALL THROUGH THE [employer] [facility]. FROM 7PM-7AM, PLEASE PAGE [phone](COVR). Code Status: Full Code Barriers to Discharge: [...] Intake/Output Summary (Last 24 hours) at 11/01/2024 0785 Last data filed at 11/01/2024 0540 Gross [...] LDL 73 10/31/2024 No results found for: [id number] , IRON , TIBC , C3 , [...] informed consent. she was brought to the cath lab technologist in a fasting state. The left wrist area was prepped and draped in usual fashion. Micropuncture technique was used for access in the radial artery. A 5-Guyanese x 11 cm sheath was placed. Verapamil was given through the sheath, and heparin was administered intravenously. A 5 Guyanese JR4 diagnostic catheter was advanced and this [...] catheter was then downsized to a 4 Guyanese JR4 diagnostic catheter however this also was not able to engage the right coronary artery. Catheter was exchanged to a JR4 diagnostic catheter which could not engage the left coronary artery. Catheter was exchanged to a 4 Guyanese JL 3.5 diagnostic catheter which eventually was able to engage the left coronary artery. Angiography was performed in multiple views. Catheter was exchanged over the wire to a 4 Guyanese 3DRC catheter. Multiple attempts were made to [...] Agent, Strain, 3D, Bubble Study 1 1 [facility] Heart Station [address] [place] [address] [phone] (fax) Echocardiogram-[facility] Name: JUAN KONG Study Date: 10/31/2024 11:16 AM B/P: 106 mmHg/67 mmHg HR: 70 bpm Date of : 1990 Location: [facility] Height: 66 in. Age: 34 year(s) Patient [...] minimal pericardial effusion. Procedure Staff Reading Group: [facility] Assistant: DAVID Kearney, RDCS Ordering Physician: KY RITTER Wall Motion Scores -1 - hyperkinesia, 0 - not evaluated, 1 - normal, 2 - hypokinesia, 3 - akinesia, 4 - dyskinesia Discharge Planning Expected Discharge Disposition: Home or Self Care (01) Signed Ky Ritter MD [facility] 11/01/2024 7:33 AM * Kaye Craig, DADA [...] 06 CREATININE 0.60 10/31/2024 06 NA 140 10/31/2024626 K 4.0 10/31/2024626 PHOS 4.4 10/30/2024 1911 MG 1.8 (L) 10/31/2024626 HGBA1C 4.5 10/31/2024626 HGB 9.4 (L) 10/31/2024626 WBC 3.65 (L) 10/31/2024626 CHOL 116 (L) 10/31/2024626 HDL 43 10/31/2024 06 Mar CGM read 67 vs finger stick 82 @ 1155 -> D50 25 g given @ 1228 2 NPO -> Mar read 126 ~15 minutes later. 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 No routine or PRN bowel [...] PO diet regular as tolerated. Intakes variable. Grainger, small meals. ONS. Dextrose 200 g AA [...] ideal body weight (59.3 kg) Calorie needs: 9820-4150 kcals/day based on 25-30 kcal/kg Protein needs: [...] of Nutrition and Dietetics (AND) and the [place] Society of Enteral and Parenteral Nutrition (ASPEN). [...] To reach the Clinical Dietitian, please utilize [employer] chat Wednesday-Wednesday from 8AM-4PM or call extension [phone]. For weekends (Wednesday-Wednesday) and holidays, the Clinical Dietitian can be reached via pager [phone]) from 9AM-3PM. The Clinical Nutrition Department is unable to respond to [employer] chat messages on Sundays and . [1] Allergies Allergen Reactions Codeine Nausea And Vomiting Nsaids (Non-Steroidal Anti-Inflammatory Drug) GI intolerance Adhesive Rash * Jami Bridges RN - 10/31/2024 12:28 PM EDT Search Director called to room as patient states her [...] Progress Note - 10/31/2024 7:18 AM; Room: [address] [place] [address] Admission: 10/30/2024 6:28 PM; Length of stay: 1 days THE HOSPITALIST TEAM PREFERS TO USE [employer] CHAT FOR NON-URGENT COMMUNICATION 7AM- 7PM. IF I DO NOT RESPOND WITHIN 20 MINUTES OR URGENT MATTERS, PLEASE CALL THROUGH THE [employer]. FROM 7PM-7AM, PLEASE PAGE [phone](COVR). Code Status: Full Code Barriers to Discharge: [...] last 7 days Lab Units 10/30/24 191 WBC AUTO 10*3/uL 4.32 HEMOGLOBIN g/dL 9.7* [...] Results from last 7 days Lab Units 10/30/242 POCT GLUCOSE mg/dL 97 Historical Values: (Includes values prior to this admission) Lab Results Component Value Date TSH 3.46 10/30/2024 No results found for: [id number] , IRON , TIBC , C3 , C4 , MISAEL , CANCA , ASO , PSA , CEA , CA125 , CA199 , AFP , CA153 Imaging ECG 12 lead Sinus rhythm with sinus arrhythmia with occasional Premature ventricular complexes Prolonged QT Abnormal ECG No previous ECGs available Discharge Planning Expected Discharge Disposition: Home or Self Care () Signed Ky Ritter MD [facility] Medicine 10/31/2024 7:18 AM documented in this encounter H&P Notes * Janet Soto MD - 11/02/2024 1:30 PM EDT H&P reviewed. The patient was examined and there are no changes to the H&P. Procedure reviewed with patient, risks including stroke, ND, discussed. Ms Kong is agreeable to coronary [...] who came as a direct admission from [facility] due to chest pain. Patient states [...] 1 patch, transdermal, Every 72 hours HYDROcodone-acetaminophen (Coxsackie) 5-325 mg tablet 2 tablets, oral, Every [...] Value Ventricular Rate 76 Atrial Rate 76 HI Interval 132 QRS DURATION 84 QT Interval 444 QTC CALCULATION(BAZETT) 499 P [employer] 72 R-[employer] [employer] 50 T Wave [employer] [employer] 89 Impression Normal sinus rhythm Prolonged QT Abnormal ECG When compared with ECG of 31-OCT-2024 08:43, No significant change was found No results found for: CKTOTAL , CKMB , CKMBINDEX , TROPONINI Limited Echo (TTE) w/wo Limited Doppler, Color Flow, Imaging Agent, Strain, 3D, Bubble Study Result Date: 10/31/2024 1 1 [facility] Heart Station [address] [place] [address] [phone] (fax) Echocardiogram-[facility] Name: JUAN KONG Study Date: 10/31/2024 11:16 AM B/P: 106 mmHg/67 mmHg HR: 70 bpm Date of : 1990 [facility]. Age: 34 year(s) Patient Room: [facility] Weight: 181 lb. Gender: Female Patient [...] minimal pericardial effusion. Procedure Staff Reading Group: [facility] Assistant: DAVID Kearney, RDCS Ordering Physician: KY RITTER [...] on TPN presents a direct admission from [facility] with chief complaint of chest pain. [...] infiltrated over the right femoral artery. A 5-Guyanese Terumo sheath was placed in right femoral [...] was maintained at >250 seconds. A 5 Guyanese Cordis XB 3.0 guide was engaged to the left main. I decided to proceed with IVUS. I then advanced a Runthrough wire to the distal left anterior descending. Next, I advanced a LessThan3 IVUS catheter. IVUS imaging was performed and [...] 31-OCT-2024 08:43, No significant change was found E[facility]ocardiogram-[facility] Name: JUAN KONG Study Date: 10/31/2024 11:16 AM B/P: 106 mmHg/67 mmHg HR: 70 bpm Date of : 1990 Location: [facility] Height: 66 in. Age: 34 year(s) Patient [...] least in part, completed using a voice chart reader system. Every effort was made to ensure accuracy. However, inadvertent computerized chart reader errors may be present. Lisa Pena DO Internal Medicine Resident, PGY-2 [facility] 4:26 PM 11/01/24 Maria D Bailey MD PGY-5 Residential Green Building Designer [facility] Pager: [phone] [1] No family history on file. [2] [...] the morning. ergocalciferol (Vitamin D-2) 1.25 MG (92675 Units) capsule Take 50,000 Units by mouth 1 (one) time per week. escitalopram (Lexapro) 20 mg tablet Take 20 mg by mouth in the morning. fentaNYL (Duragesic) 12 mcg/hr Place 1 patch on the skin every 3rd (third) day. Takes 12 mcg and 25mcg together every 3 days fentaNYL (Duragesic) 25 mcg/hr Place 1 patch on the skin every 3rd (third) day. HYDROcodone-acetaminophen (Coxsackie) 5-325 mg tablet Take 2 tablets by [...] Procedure reviewed with patient, risks including stroke, ND, , bleeding and infection complications discussed.Ms. Kong [...] who came as a direct admission from [facility] due to chest pain. Patient states [...] 1 patch, transdermal, Every 72 hours HYDROcodone-acetaminophen (Coxsackie) 5-325 mg tablet 2 tablets, oral, Every [...] Value Ventricular Rate 83 Atrial Rate 83 HI Interval 144 QRS DURATION 88 QT Interval 422 QTC CALCULATION(BAZETT) 495 [address] [employer] 62 R-[employer] 19 T [employer] 56 Impression Sinus rhythm with sinus arrhythmia [...] QT Abnormal ECG No previous ECGs available Echocardiogram-[facility] Name: JUAN KONG Study Date: 10/31/2024 11:16 AM B/P: 106 mmHg/67 mmHg HR: 70 bpm Date of : 1990 Location: [facility] Height: 66 in. Age: 34 year(s) Patient [...] least in part, completed using a voice chart reader system. Every effort was made to ensure accuracy. However, inadvertent computerized chart reader errors may be present. Lisa Pena DO Internal Medicine Resident, PGY-2 [facility] 7:50 AM 10/31/24 [1] No [...] the morning. ergocalciferol (Vitamin D-2) 1.25 MG (01862 Units) capsule Take 50,000 Units by mouth 1 (one) time per week. escitalopram (Lexapro) 20 mg tablet Take 20 mg by mouth in the morning. fentaNYL (Duragesic) 12 mcg/hr Place 1 patch on the skin every 3rd (third) day. Takes 12 mcg and 25mcg together every 3 days fentaNYL (Duragesic) 25 mcg/hr Place 1 patch on the skin every 3rd (third) day. HYDROcodone-acetaminophen (Coxsackie) 5-325 mg tablet Take 2 tablets by [...] Procedure reviewed with patient, risks of stroke, ND, discussed. Ms Kong is agreeable to proceed [...] who came as a direct admission from [facility] due to chest pain. Patient states [...] 1 patch, transdermal, Every 72 hours HYDROcodone-acetaminophen (Coxsackie) 5-325 mg tablet 2 tablets, oral, Every [...] Value Ventricular Rate 83 Atrial Rate 83 HI Interval 144 QRS DURATION 88 QT Interval 422 QTC CALCULATION(BAZETT) [address] [employer] 62 R[employer] 19 T [employer] 56 Impression Sinus rhythm with sinus arrhythmia [...] QT Abnormal ECG No previous ECGs available Echocardiogram-[facility] Name: JUAN KONG Study Date: 10/31/2024 11:16 AM B/P: 106 mmHg/67 mmHg HR: 70 bpm Date of : 1990 Location: [facility] Height: 66 in. Age: 34 year(s) Patient [...] least in part, completed using a voice chart reader system. Every effort was made to ensure accuracy. However, inadvertent computerized chart reader errors may be present. Lisa Pena DO Internal Medicine Resident, PGY-2 [facility] 7:50 AM 10/31/24 [1] No [...] the morning. ergocalciferol (Vitamin D-2) 1.25 MG (58466 Units) capsule Take 50,000 Units by mouth 1 (one) time per week. escitalopram (Lexapro) 20 mg tablet Take 20 mg by mouth in the morning. fentaNYL (Duragesic) 12 mcg/hr Place 1 patch on the skin every 3rd (third) day. Takes 12 mcg and 25mcg together every 3 days fentaNYL (Duragesic) 25 mcg/hr Place 1 patch on the skin every 3rd (third) day. HYDROcodone-acetaminophen (Coxsackie) 5-325 mg tablet Take 2 tablets by [...] PM THE HOSPITALIST TEAM PREFERS TO USE [employer] FOR NON-URGENT COMMUNICATION 7AM- 7PM. IF I DO NOT RESPOND WITHIN 20 MINUTES OR URGENT MATTERS, PLEASE CALL THROUGH THE [employer]. FROM 7PM-7AM, PLEASE PAGE [phone](COVR). Chief Complaint Direct admission from [facility] with [facility] History of Present Illness Juan [...] on TPN presents a direct admission from [facility] with chief complaint of chest pain. [...] is a 7 out of 10. At [facility], x-ray was completed showing mild fluid overload. Troponin was found to be elevated at 390. Cardiology team was contacted and they recommended transfer for higher level of care. She was also started on a heparin infusion at that time. Upon arrival to [facility], repeat labs were completed showing [...] (CMS/HCC) - Patient currently taking metformin at home, [...] this hospital stay by a member of [facility]. Past Medical History Medical History[1] Past [...] Physical Activity: Insufficiently Active (06/30/2023) Received from [facility] Exercise Vital Sign Days of Exercise per Week: 3 days Minutes of Exercise per Session: 10 min Stress: Stress Concern Present (06/30/2023) Received from [facility] [employer] [place] [employer] Occupational Health - Occupational Stress Questionnaire Feeling of Stress : Rather much Social Connections: Moderately Integrated (06/30/2023) Received from [facility] Social Connection and Isolation Panel [NHANES] Frequency of Communication with Friends and Family: Twice a week Frequency of Social Gatherings with Friends and Family: Twice a week Attends Congregational Services: More than 4 times per year [...] Procedure Abnormality Status --------- ------ CBC auto differential[[id number]] Abnormal Final result Please view results for these tests on the individual orders. HIGH SENSITIVITY TROPONIN I ANTI-XA (HEPARIN LEVEL) POCT GLUCOSE METER Imaging ECG 12 lead Sinus rhythm with sinus arrhythmia with occasional Premature ventricular complexes Prolonged QT Abnormal ECG No previous ECGs available Signed [facility] 10/30/2024 8:57 PM [1] No [...] the morning. ergocalciferol (Vitamin D-2) 1.25 MG (35878 Units) capsule Take 50,000 Units by mouth 1 (one) time per week. escitalopram (Lexapro) 20 mg tablet Take 20 mg by mouth in the morning. fentaNYL (Duragesic) 12 mcg/hr Place 1 patch on the skin every 3rd (third) day. Takes 12 mcg and 25mcg together every 3 days fentaNYL (Duragesic) 25 mcg/hr Place 1 patch on the skin every 3rd (third) day. HYDROcodone-acetaminophen (Coxsackie) 5-325 mg tablet Take 2 tablets by [...] from the original note were not included. [facility] Department of Urology CONSULTATION Reason for [...] to thrive. Patient was a transfer from [facility] due to an NSTEMI. Underwent cardiac [...] issues with retention. Was [facility] in [facility]-good specialist for questionable [...] Physical Activity: Insufficiently Active (06/30/2023) Received from [facility] Exercise Vital Sign Days of Exercise per Week: 3 days Minutes of Exercise per Session: 10 min Stress: Stress Concern Present (06/30/2023) Received from [facility] [employer] [place] of Occupational Health - Occupational Stress Questionnaire Feeling of Stress : Rather much Social Connections: Moderately Integrated (06/30/2023) Received from [facility] Social Connection and Isolation Panel [NHANES] Frequency of Communication with Friends and Family: Twice a week Frequency of Social Gatherings with Friends and Family: Twice a week Attends Congregational Services: More than 4 times per year [...] infiltrated over the right femoral artery. A 6-Guyanese sheath was placed in right femoral artery. Coronary angiography was performed with a JL4 and then repeated after IC nitroglycerin 50 mcg x 2. At this time, it was apparent that the LAD had a moderate stenosis and IVUS and iFR were performed. Heparin anticoagulation was used for this procedure. ACT was maintained at >250 seconds. A 6 Guyanese xb3 was engaged to the [place]. I then advanced a 0.014 guidewire to the distal left anterior descending. IVUS imaging was performed with a WebLayersinity catheter after additional IC nitroglycerin and IV [...] informed consent. she was brought to the cath lab technologist in a fasting state. The left wrist area was prepped and draped in usual fashion. Micropuncture technique was used for access in the radial artery. A 5-Guyanese x 11 cm sheath was placed. Verapamil was given through the sheath, and heparin was administered intravenously. A 5 Guyanese JR4 diagnostic catheter was advanced and this [...] catheter was then downsized to a 4 Guyanese JR4 diagnostic catheter however this also was not able to engage the right coronary artery. Catheter was exchanged to a JR4 diagnostic catheter which could not engage the left coronary artery. Catheter was exchanged to a 4 Guyanese JL 3.5 diagnostic catheter which eventually was able to engage the left coronary artery. Angiography was performed in multiple views. Catheter was exchanged over the wire to a 4 Guyanese 3DRC catheter. Multiple attempts were made to [...] 2,300 mL, intravenous, Cyclic TPN, Kaye Craig, DADA albuterol 90 mcg/actuation inhaler 2 puff, 2 puff, inhalation, q6h PRN, Debbie Pirkl, ELASTIC ATTACHER OVERLOCK aspirin EC tablet 81 mg, 81 mg, [...] 25 g, intravenous, q15 min PRN, Debbie kl, ELASTIC ATTACHER OVERLOCK, 25 g at 10/31/24 1228 diphenhydrAMINE (BENADryl) [...] PA-C, 1 patch at 11/03/24 1128 HYDROcodone-acetaminophen (Coxsackie) 5-325 mg per tablet 1 tablet, 1 tablet, oral, q4h PRN, 1 tablet at 11/03/24 1011 OR HYDROcodone-acetaminophen (Coxsackie) 5- 325 mg per tablet 2 tablet, 2 tablet, oral, q4h PRN, Ky Ritter MD, 2 tablet at 11/03/24 1319 hydrocortisone (Cortef) tablet 10 mg, 10 mg, oral, Daily, Debbie Luna CNP, 10 mg at 11/03/24 1014 HYDROmorphone (Dilaudid) injection 0.2 mg, 0.2 mg, intravenous, q3h PRN, Sid Cruz PA-C hydrOXYzine pamoate (Vistaril) capsule 50 mg, 50 mg, oral, Nightly PRN, Debbie Luna, ELASTIC ATTACHER OVERLOCK insulin lispro (HumaLOG) injection 0-5 Units, 0-5 [...] 5 mg, 5 mg, oral, Nightly PRN, Debbiejossie Mahmoodkl, ELASTIC ATTACHER OVERLOCK methocarbamol (Robaxin) tablet 750 mg, 750 mg, [...] tablet 45 mg, 45 mg, oral, Nightly, oRsa Willoughby PA-C pantoprazole (ProtoNix) EC tablet 40 [...] 10 mL, intravenous, q8h PRN, Debbie Luna, ELASTIC ATTACHER OVERLOCK sucralfate (Carafate) tablet 1 g, 1 g, oral, Before meals & nightly, Rosa Willoughby PA-C, 1 g at 11/03/24 1013 topiramate (Topamax) tablet 100 mg, 100 mg, oral, BID, Rosa Willoughby PA-C, 100 mg at 11/03/24 1013 traMADol (Ultram) tablet 50 mg, 50 mg, oral, q6h PRN, Debbie Luna, ELASTIC ATTACHER OVERLOCK, 50 mg at 11/03/24 0838 traZODone (Desyrel) tablet 100 mg, 100 mg, oral, Nightly, Rosa Willoughby PA-C trimethobenzamide (Tigan) injection 200 mg, 200 mg, intramuscular, q6h PRN, Debbie Luna, ELASTIC ATTACHER OVERLOCK, 200 mg at 11/03/24 0018 [5] No family history on file. Cosigned by Nic Aviles MD at 11/10/2024 3:02 PM EDT * Miles Ramos MD - 11/02/2024 7:54 PM EDTAssociated Order(s): IP CONSULT TO VASCULAR SURGERY Images from the original note were not included. [facility] Vascular/Endovascular Surgery Cigar Bander Complaint R groin hematoma History and Present [...] Physical Activity: Insufficiently Active (06/30/2023) Received from [facility] Exercise Vital Sign Days of Exercise per Week: 3 days Minutes of Exercise per Session: 10 min Stress: Stress Concern Present (06/30/2023) Received from [facility] [employer] [employer] Occupational Health - Occupational Stress Questionnaire Feeling of Stress : Rather much Social Connections: Moderately Integrated (06/30/2023) Received from [facility] Social Connection and Isolation Panel [NHANES] Frequency of Communication with Friends and Family: Twice a week Frequency of Social Gatherings with Friends and Family: Twice a week Attends Congregational Services: More than 4 times per year [...] Vitals: 11/02/24 1924 11/02/24 1927 11/02/24 1930 11/02/241944 BP: 114/59 (!) 122/95 93/57 103/59 BP [...] infiltrated over the right femoral artery. A 6-Guyanese sheath was placed in right femoral artery. Coronary angiography was performed with a JL4 and then repeated after IC nitroglycerin 50 mcg x 2. At this time, it was apparent that the LAD had a moderate stenosis and IVUS and iFR were performed. Heparin anticoagulation was used for this procedure. ACT was maintained at >250 seconds. A 6 Guyanese xb3 was engaged to the [place]. I [...] informed consent. she was brought to the cath lab technologist in a fasting state. The left wrist area was prepped and draped in usual fashion. Micropuncture technique was used for access in the radial artery. A 5-Guyanese x 11 cm sheath was placed. Verapamil was given through the sheath, and heparin was administered intravenously. A 5 Guyanese JR4 diagnostic catheter was advanced and this [...] catheter was then downsized to a 4 Guyanese JR4 diagnostic catheter however this also was not able to engage the right coronary artery. Catheter was exchanged to a JR4 diagnostic catheter which could not engage the left coronary artery. Catheter was exchanged to a 4 Guyanese JL 3.5 diagnostic catheter which eventually was able to engage the left coronary artery. Angiography was performed in multiple views. Catheter was exchanged over the wire to a 4 Guyanese 3DRC catheter. Multiple attempts were made to [...] the morning. ergocalciferol (Vitamin D-2) 1.25 MG (15042 Units) capsule Take 50,000 Units by mouth 1 (one) time per week. escitalopram (Lexapro) 20 mg tablet Take 20 mg by mouth in the morning. fentaNYL (Duragesic) 12 mcg/hr Place 1 patch on the skin every 3rd (third) day. Takes 12 mcg and 25mcg together every 3 days fentaNYL (Duragesic) 25 mcg/hr Place 1 patch on the skin every 3rd (third) day. HYDROcodone-acetaminophen (Coxsackie) 5-325 mg tablet Take 2 tablets by [...] who came as a direct admission from [facility] due to chest pain. Patient states [...] 1 patch, transdermal, Every 72 hours HYDROcodone-acetaminophen (Coxsackie) 5-325 mg tablet 2 tablets, oral, Every [...] Value Ventricular Rate 76 Atrial Rate 76 HI Interval 132 QRS DURATION 84 QT Interval 444 QTC CALCULATION(BAZETT) [address] [employer] 72 R[employer] 50 T Wave [employer] [employer] 89 Impression Normal sinus rhythm Prolonged QT Abnormal ECG When compared with ECG of 31-OCT-2024 08:43, No significant change was found No results found for: CKTOTAL , CKMB , CKMBINDEX , TROPONINI Limited Echo (TTE) w/wo Limited Doppler, Color Flow, Imaging Agent, Strain, 3D, Bubble Study Result Date: 10/31/2024 1 1 [facility] Heart Station [address] [place] [address] [phone] (fax) Echocardiogram-[facility] Name: JUAN KONG Study Date: 10/31/2024 11:16 AM B/P: 106 mmHg/67 mmHg HR: 70 bpm Date of : 1990 [facility]. Age: 34 year(s) Patient Room: [...] minimal pericardial effusion. Procedure Staff Reading Group: [facility] Community Program Assistant: DAVID Kearney, RDCS Ordering Physician: KY RITTER [...] on TPN presents a direct admission from [facility] with chief complaint of chest pain. [...] infiltrated over the right femoral artery. A 5-Guyanese Terumo sheath was placed in right femoral [...] was maintained at >250 seconds. A 5 Guyanese Cordis XB 3.0 guide was engaged to the left main. I decided to proceed with IVUS. I then advanced a Runthrough wire to the distal left anterior descending. Next, I advanced a LessThan3 IVUS catheter. IVUS imaging was performed and [...] 31-OCT-2024 08:43, No significant change was found Echocardiogram-[facility] Name: JUAN KONG Study Date: 10/31/2024 11:16 AM B/P: 106 mmHg/67 mmHg HR: 70 bpm Date of : 1990 Location: [facility] Height: 66 in. Age: 34 year(s) Patient [...] least in part, completed using a voice chart reader system. Every effort was made to ensure accuracy. However, inadvertent computerized chart reader errors may be present. Lisa Pena DO Internal Medicine Resident, PGY-2 [facility] 4:26 PM 11/01/24 Maria D Bailey MD PGY-5 Residential Green Building Designer [facility] Pager: [phone] [1] No family history on file. [2] [...] the morning. ergocalciferol (Vitamin D-2) 1.25 MG (92281 Units) capsule Take 50,000 Units by mouth 1 (one) time per week. escitalopram (Lexapro) 20 mg tablet Take 20 mg by mouth in the morning. fentaNYL (Duragesic) 12 mcg/hr Place 1 patch on the skin every 3rd (third) day. Takes 12 mcg and 25mcg together every 3 days fentaNYL (Duragesic) 25 mcg/hr Place 1 patch on the skin every 3rd (third) day. HYDROcodone-acetaminophen (Coxsackie) 5-325 mg tablet Take 2 tablets by [...] me. Additional Comments: Katie Altamirano MD, MPH, [facility], [facility], [facility] Interventional Cardiology Pager Email: [email or web address] * Lisa Pena DO - 10/31/2024 7:49 [...] who came as a direct admission from [facility] due to chest pain. Patient states [...] 1 patch, transdermal, Every 72 hours HYDROcodone-acetaminophen (Coxsackie) 5-325 mg tablet 2 tablets, oral, Every [...] Value Ventricular Rate 83 Atrial Rate 83 HI Interval 144 QRS DURATION 88 QT Interval 422 QTC CALCULATION(BAZETT) [address] [employer] 62 [employer] 19 T Wave [employer] [employer] 56 Impression Sinus rhythm with sinus arrhythmia [...] QT Abnormal ECG No previous ECGs available Echocardiogram-[facility] Name: JUAN KONG Study Date: 10/31/2024 11:16 AM B/P: 106 mmHg/67 mmHg HR: 70 bpm Date of : 1990 Location: [facility] Height: 66 in. Age: 34 year(s) Patient Room : [facility] Weight: 181 lb. Gender: Female Patient [...] least in part, completed using a voice chart reader system. Every effort was made to ensure accuracy. However, inadvertent computerized chart reader errors may be present. Lisa Pena DO Internal Medicine Resident, PGY-2 [facility] 7:50 AM 10/31/24 [1] No [...] the morning. ergocalciferol (Vitamin D-2) 1.25 MG (89207 Units) capsule Take 50,000 Units by mouth 1 (one) time per week. escitalopram (Lexapro) 20 mg tablet Take 20 mg by mouth in the morning. fentaNYL (Duragesic) 12 mcg/hr Place 1 patch on the skin every 3rd (third) day. Takes 12 mcg and 25mcg together every 3 days fentaNYL (Duragesic) 25 mcg/hr Place 1 patch on the skin every 3rd (third) day. HYDROcodone-acetaminophen (Coxsackie) 5-325 mg tablet Take 2 tablets by [...] presentation would be considered a Type I ND/NSTEMI. This may or may not have been related to coronary vasospasm caused by the IV Compazine. Continue IV heparin drip. Invasive coronary angiography is indicated; will adjust pharmacological therapy depending on results. Treatment cardiac morbidities as clinically appropriate Katie Altamirano MD, MPH, [facility], [facility], [facility] Interventional Cardiology Pager Email: [email or web address] documented in this encounter Nursing Notes * [...] Deepika Matos RN Rapid Response Team Nurse [phone] 11/07/2024 4:54 PM * Suleiman Borges RN - 11/07/2024 12:52 AM EDT Patient Name: Juan Kong : 1990 Primary Care Physician: Thomas Alas MD Admission Date: 10/30/2024 RAPID RESPONSE TEAM ICU TRANSFER FOLLOW-UP NOTE SUBJECTIVE / OBJECTIVE: Follow-up for previous transfer out of the ICU notification for 11/06 at 1325. ASSESSMENT / INTERVENTIONS: Recent Vital Signs: Vitals: 11/06/24 1619 11/06/24200711/06/24 2147 11/07/24 0000 BP: 94/70 124/57 117/51 [...] voiced no concerns at this time. The copywriter urged theprimary RN to call the rapid team if any concerns arise overnight. Suleiman Borges RN Rapid Response Team Nurse [phone] 11/07/2024 12:52 AM * Fern Snider RN [...] DEE High from Evelyne and DEE Sidhu. microbiology lab manager RN presented site to bedside RN. Bedside RN visualized site and palpated site to ensure there was no hematoma or bruising, and femoral site appears flat. Both bedside RN and cath lab technologist RN mutually agreed that the site presents normal. microbiology lab manager RN and bedside RN either palpated or used a doppler to assess pulses on the patient. * Alyce Ortega RN - 11/02/2024 8:30 PM EDT Pt brought to PRE-OP/pacu from cath lab technologist. Dr Whitlock holding pressure on right groin site. Pt on monitor. Report obtained. * Nathalie Hurd RN - 11/02/2024 8:13 PM EDT Report given to Thao BODY ART TECHNICIAN, RN from [facility] Any medications or [...] given to DEE Gomez from DEE Shirley. microbiology lab manager RN presented site to bedside RN. Bedside RN visualized site and palpated site to ensure there was no hematoma or bruising, and femoral site appears flat. Both bedside RN and cath lab technologist RN mutually agreed that the site presents normal. microbiology lab manager RN and bedside RN either palpated or [...] Emery RN - 11/07/2024 1:32 PM EDT Search Director talked with patient about discharge planning, Search Director did offer HHC to patient for [facility] due to patient discharging with [facility]. Patient stated she has [facility] in [facility] but her insurance is no longer accepting by them. Patient was agreeable to a mass referral to be set out to see who is accepting and who takes her insurance. Search Director notified SW. * Care Plan - Patricia [...] dizziness when up yesterday. Move out to [place]. Anticipate discharge home. cb Diet: Dietary Orders (From admission, onward) Start Ordered 11/04/24 0877 Special Kitchen Request Once Comments: Please send oatmeal with brown sugar, a bagel with cream cheese, and coffee with cream and sugar. Thank you! 11/04/24 0854 11/03/24 1335 Special Kitchen Request Once Comments: Please send Old Fashioned Hot [place] entree, with a side of green beans; [...] 22311/01/24 1519 Dietary nutrition supplements Lunch; Gelatein; [place]; 4 oz; Oral Until discontinued Comments: When diet advances Question Answer Comment Deliver with Lunch Select supplement: Gelatein Flavor [place] Strength: 4 oz Route Oral 11/01/24 1519 [...] for Consult? Resume primary Level of Consultation Textile Machine Mechanic assumes full responsibility 11/06/24 0844 Therapy Orders [...] and behaviors that affect risk of falls [place] fall precautions as indicated by assessment Educate [...] Practitioner order if needed Discuss catheterization for fci situations as appropriate Goal: Urinary catheter remains [...] sites i.e., indwelling lines, tubes and drains [place] appropriate cooling/warming therapies per order Administer medications [...] and behaviors that affect risk of falls [place] fall precautions as indicated by assessment Educate [...] alleviate retention as needed 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 Dr Collins informed and advised to continue holding pressure. At around 7 pm the hematoma was noted to be expanding. Dr Gilmore, the superintendent ammunition storage interventionalist was at bedside, evaluated the patient [...] was emergently taken to the OR with cath lab technologist team, and surgery at bedside. Patients family (mom and ) were updated on the situation. Patient will be admitted to SICU post-operatively. Janet Soto MD Residential Green Building Designer, PGY-4 [facility] 11/02/24 8:56 PM Cosigned by Tino [...] large hematoma. When I arrived to the Worm Farm Laborer I assessed the hematoma to be significant [...] PSEUDOANEURYSM (R) Operative Note Date: 11/02/2024 Location: [facility] OR Name: Juan Kong, : 1990, Diagnosis [...] 11/02/242135 Status To bulb suction 11/02/242135 Staff: Veneer Stock Layer: Elicia Small RN; Dimitri Hearn RN Scrub [...] 6-0 Prolene sutures were placed in a [id number] manner, across the femoral artery luminal defects to obtain hemostasis, taking careful attention not to backwall obstruct the femoral artery. Good hemostasis was witnessed and the incision was packed with thrombin Gelfoam. Next attention was towards the subcutaneous empty space formed by the previous hematoma. The empty space and the wound was thoroughly irrigated using normal saline. A 10 Guyanese flat GONSALO drain was placed at the [...] year old female who was transferred to [facility] from [place] on 10/30 for chest pain. PMH is [...] which brought her to the hospital. At [place], chest xray showed mild fluid overload and [...] evacuation procedure. She is on fentanyl patches, Coxsackie, and will receive a one time dose [...] 11/02/24 1741 Procedure: Coronary angiography (Bilateral) Location: [facility] VASCULAR [facility] (Cath) Providers: Wali Collins [...] attending. Additional Equipment Requests Janet Soto MD Residential Green Building Designer, PGY-4 [facility] 11/02/24 1:31 PM Cosigned by Wali Collins MD at 11/02/2024 3:13 PM EDT * Assessment & Plan Note - Ky Ritter MD - 11/02/2024 1:29 PM EDT Associated Problem(s): NSTEMI (non-ST elevated myocardial infarction) ([facility]) -Trop 390 at OSH, now downward trending [...] pain today patient brought urgently back to [facility] * Assessment & Plan Note - Ky [...] pain today patient brought urgently back to [facility] * Assessment & Plan Note - Ky Ritter MD - 11/02/2024 1:29 PM EDT Associated Problem(s): Prolonged Q-T interval on ECG -QT mildly prolonged; read as 492 ms however calculation revealing 429 -Okay with reglan * Assessment & Plan Note - Ky Ritter MD - 11/02/2024 1:29 PM EDT Associated Problem(s): Type 2 diabetes mellitus without complication, without long-term current useof insulin ([facility]) - Patient currently taking metformin at home [...] Outcome: Adequate for Discharge Flowsheets (Taken 11/02/2024 5583) Free from fall injury: Assess patient frequently for physical needs Problem: Discharge Planning Goal: Discharge to home or other facility with appropriate resources Outcome: Adequate for Discharge Flowsheets (Taken 11/02/2024 7428) Discharge to home or other facility with [...] Status Interested Does the patient have a case maker assigned to them through their insurance? Yes [...] with benadry and Tigan. Pain controlled with Coxsackie and tramadol. * Care Plan - Patricia [...] Date/Time: 11/01/24 1300 Procedure: Coronary angiography Location: [facility] VASCULAR [facility] (Cath) Providers: Mitchell Agustin [...] attending. Additional Equipment Requests Janet Soto MD Residential Green Building Designer, PGY-4 [facility] 11/01/24 12:12 PM Cosigned by Mitchell Agustin MD at 11/01/2024 12:42 PM EDT * Assessment & Plan Note - Ky Ritter MD - 11/01/2024 11:57 AM EDT Associated Problem(s): NSTEMI (non-ST elevated myocardial infarction) ([facility]) -Trop 390 at OSH, now downward trending [...] without complication, without long-term current useof insulin ([facility]) - Patient currently taking metformin at home [...] Date/Time: 10/31/24 1330 Procedure: Coronary angiography Location: [facility]ASC[facility] (Cath) Providers: Tino Gilmore [...] without complication, without long-term current useof insulin ([facility]) - Patient currently taking metformin at home [...] Associated Problem(s): NSTEMI (non-ST elevated myocardial infarction) ([facility]) -Trop 390 at OSH, now downward trending [...] include. * Assessment & Plan Note - yK Ritter MD - 10/31/2024 7:18 AM EDT [...] without complication, without long-term current useof insulin ([facility]) - Patient currently taking metformin at home, [...] Info) Description 11/20/2024 2:30 PM EDT Follow-Up [facility] Vascular and Endovascular Surgery [address] [place] [id number] Delphine Du NP [address] [facility] [place] [address] [place], [place] [id number] 11/28/2024 11:00 AM EDT Follow-Up [facility] Cardiology [address] [address] Wali Collins MD [address] [place] [phone] 12/04/2024 10:00 AM EDT Office Visit [facility] [place] [address] [place] [address] Katie Altamirano MD [address] [place] [address] documented as of this encounter [...] - 105 mg/dL 11/07/2024 4:12 PM EDT [facility] LAB ([facility]) Comment:[email or web address] Blood Capillary blood specimen / Unknown 11/07/2024 4:00 PM EDT 11/07/2024 4:12 PM EDT [facility] LAB [facility]) - 11/07/2024 4:12 PM EDT Waived Testing in the ED is performed under the ED CLIA certificate #[id number]. us Mauricio Garcia MD LAB BLOOD ORDERABLES Final Resu lt Performing Organization Address [facility] Co de Phone Number [facility] LAB [facility]) [address] [place], [place] [id number] * (ABNORMAL) POCT glucose meter (11/07/2024 11:55 AM EDT) Glucose POC 121(H) 70 - 105 mg/dL 11/07/2024 12:06 PM EDT [facility] LAB ([facility]) Comment:[email or web address] Blood Capillary blood specimen / Unknown 11/07/2024 11:55 AM EDT 11/07/2024 12:06 PM EDT [facility] LAB [facility]) - 11/07/2024 12:06 PM EDT Waived Testing in the ED is performed under the ED CLIA certificate #[id number]. us Mauricio Garcia MD LAB BLOOD ORDERABLES Final Resu lt Performing Organization Address [facility]/ZIP Co de Phone Number [facility]) [address] [place] [address] * ECG 12 lead (11/07/2024 11:48 AM EDT) Ventricular Rate 91 BPM GE MUSE Atrial Rate 91 BPM GE MUSE HI Interval 134 ms GE MUSE QRS DURATION 88 ms GE MUSE QT Interval 386 ms GE MUSE QTC CALCULATION(BAZE TT) 474 ms GE MUSE P [employer] 63 degrees GE MUSE R-[employer] 35 degrees GE MUSE T Wave [employer] 46 degrees GE MUSE 11/07/2024 11:3 3 [...] POCT glucose meter (11/07/2024 7:43 AM EDT) [facility] Glucose POC 118(H) 70 - 105 mg/dL 11/07/2024 7:58 AM EDT [facility] LAB ([facility]) Comment:[email or web address] Blood Capillary blood specimen / Unknown 11/07/2024 7:43 AM EDT 11/07/2024 7:58 AM EDT Narrative [facility] LAB ([facility]) - 11/07/2024 7:58 AM EDT Waived Testing in the ED is performed under the ED CLIA certificate #[id number]. us Mauricio Garcia MD LAB BLOOD ORDERABLES Final Resu lt [facility] LAB ([facility]) [address] [place], [place] [id number] * (ABNORMAL) CBC (11/07/2024 6:27 AM EDT) Auto WBC 4.21 4.00 - 10.60 10*3/uL 11/07/2024 7:01 AM EDT [facility] LAB ([facility]) RBC 3.01(L) 3.80 - 5.00 10*6/uL 11/07/2024 7:01 AM EDT [facility] LAB ([facility]) Hemoglobin 9.0(L) 12.0 - 15.0 g/dL 11/07/2024 7:01 AM EDT [facility] LAB ([facility]) Hematocrit 26.9(L) 36.0 - 45.0 % 11/07/2024 7:01 AM EDT [facility] LAB ([facility]) MCV 89.4 82.0 - 98.0 fL 11/07/2024 7:01 AM EDT [facility] LAB ([facility]) MCH 29.9 27.0 - 33.0 pg 11/07/2024 7:01 AM EDT [facility] LAB ([facility]) MCHC 33.5 32.0 - 35.0 g/dL 11/07/2024 7:01 AM EDT [facility] LAB ([facility]) RDW 14.2 11.5 - 15.0 % 11/07/2024 7:01 AM EDT [facility] LAB ([facility]) Platelets 206 150 - 400 10*3/uL 11/07/2024 7:01 AM EDT [facility] LAB ([facility]) Blood Venous blood specimen / Unknown Existing Catheter / Unknown 11/07/2024 6:27 AM EDT 11/07/2024 6:45 AM EDT us Dominic Chappell DO LAB BLOOD ORDERABLES Final Re sult [facility] LAB ([facility]) [address] [place] [address] * High Sensitivity Troponin I (11/07/2024 4:50 AM EDT) High Sensitivity Troponin I 10 <15 ng/L 11/07/2024 1:15 PM EDT [facility] LAB ([facility]) Blood Venous blood specimen / Unknown Existing Catheter / Unknown 11/07/2024 4:50 AM EDT 11/07/2024 5:24 AM EDT us Mauricio Garcia MD LAB BLOOD ORDERABLES Final Resu lt Performing Organization Address City/[facility]/ZIP Co de Phone Number [facility] LAB ([facility]) [address] [place] [address] * Calcium, ionized (11/07/2024 4:50 AM EDT) Calcium, Ion 1.16 1.15 - 1.33 mmol/L 11/07/2024 5:43 AM EDT [facility] RESPIRATORY THERAPY Blood Venous blood specimen / Unknown Existing Catheter / Unknown 11/07/2024 4:50 AM EDT 11/07/2024 5:38 AM EDT us Eduarda Bravo PA-C LAB BLOOD ORDERABLES Final Resu lt Performing Organization Address City/[facility]/ZIP Co de Phone Number [facility] RESPIRATORY THERAPY [address] [place] [address], [place] * Phosphorus (11/07/2024 4:50 AM EDT) Phosphorus 4.7 2.5 - 5.0 mg/dL 11/07/2024 5:52 AM EDT [facility] LAB ([facility]) Blood Venous blood specimen / Unknown Existing Catheter / Unknown 11/07/2024 4:50 AM EDT 11/07/2024 5:24 AM EDT us Rosa Willoughby PA-C LAB BLOOD ORDERABLES Final R esult [facility] LAB ([facility]) [address] [place] [address] * Magnesium (11/07/2024 4:50 AM EDT) Magnesium 2.1 1.9 - 2.7 mg/dL 11/07/2024 5:52 AM EDT [facility] LAB ([facility]) Blood Venous blood specimen / Unknown Existing Catheter / Unknown 11/07/2024 4:50 AM EDT 11/07/2024 5:24 AM EDT us Rosa Willoughby PA-C LAB BLOOD ORDERABLES Final R esult [facility] LAB ([facility]) [address] [place] [address] * (ABNORMAL) Basic metabolic panel (11/07/2024 4:50 AM EDT) Sodium 139 136 - 145 mmol/L 11/07/2024 5:52 AM EDT [facility] LAB ([facility]) Potassium 3.9 3.5 - 5.1 mmol/L 11/07/2024 5:52 AM EDT [facility] LAB ([facility]) Chloride 105 98 - 107 mmol/L 11/07/2024 5:52 AM EDT [facility] LAB ([facility]) CO2 28 21 - 31 mmol/L 11/07/2024 5:52 AM EDT [facility] LAB ([facility]) BUN 14 7 - 25 mg/dL 11/07/2024 5:52 AM EDT [facility] LAB ([facility]) Creatinine 0.52(L) 0.60 - 1.20 mg/dL 11/07/2024 5:52 AM EDT [facility] LAB ([facility]) Glucose 87 70 - 100 mg/dL 11/07/2024 5:52 AM EDT [facility] LAB ([facility]) Calcium 8.3(L) 8.6 - 10.3 mg/dL 11/07/2024 5:52 AM EDT [facility] LAB ([facility]) Anion Gap 10 7 - 20 mmol/L 11/07/2024 5:52 AM EDT [facility] LAB ([facility]) eGFR 124.2 >60.0 mL/min/1. 73m*2 11/07/2024 5:52 AM EDT [facility] LAB ([facility]) Comment:[facility] s estimated glomerular filtration rate (eGFR) [...] BUN/Creatinine Ratio 26.9 10/17 5:52 AM EDT [facility] LAB ([facility]) Blood Venous blood specimen / Unknown Existing Catheter / Unknown 11/07/2024 4:50 AM EDT 11/07/2024 5:24 AM EDT us Rosa Willoughby PA-C LAB BLOOD ORDERABLES Final R esult Performing Organization Address City/[facility]/ZIP Co de Phone Number [facility] [address] [place], [place] [id number] * (ABNORMAL) POCT glucose meter (11/06/2024 10:59 PM EDT) Glucose POC 134(H) 70 - 105 mg/dL 11/06/2024 11:10 PM EDT [facility]) Comment:[email or web address] Blood Capillary blood specimen / Unknown 11/06/2024 10:59 PM EDT 11/06/2024 11:10 PM EDT Narrative [facility] LAB [facility]) - 11/06/2024 11:10 PM EDT Waived Testing in the ED is performed under the ED CLIA certificate #[id number]. us Jose Angel Fox MD LAB BLOOD ORDERABLES Final Resu lt Performing Organization Address City/[facility]/ZIP Co de Phone Number [facility]) [address] [place], [place] [id number] * (ABNORMAL) POCT glucose meter (11/06/2024 8:22 PM EDT) Glucose POC 125(H) 70 - 105 mg/dL 11/06/2024 8:33 PM EDT [facility] LAB ([facility]) Comment:[email or web address] Blood Capillary blood specimen / Unknown 11/06/2024 8:22 PM EDT 11/06/2024 8:33 PM EDT Narrative [facility] ([facility]) - 11/06/2024 8:33 PM EDT Waived Testing in the ED is performed under the ED CLIA certificate #[id number]. us Jose Angel Fox MD LAB BLOOD ORDERABLES Final Resu lt Performing Organization Address [facility]/ZIP Co de Phone Number [facility] LAB [facility]) [address] [place] [address] * (ABNORMAL) POCT glucose meter (11/06/2024 5:05 PM EDT) Glucose POC 135(H) 70 - 105 mg/dL 11/06/2024 5:16 PM EDT [facility]) Comment:[email or web address] Blood Capillary blood specimen / Unknown 11/06/2024 5:05 PM EDT 11/06/2024 5:16 PM EDT Narrative [facility] LAB [facility]) - 11/06/2024 5:16 PM EDT Waived Testing in the ED is performed under the ED CLIA certificate #[id number]. us Jose Angel Fox MD LAB BLOOD ORDERABLES Final Resu lt Performing Organization Address [facility] Co de Phone Number [facility] LAB [facility]) [address] [place] [address] * Calcium, ionized (11/06/2024 12:24 PM EDT) Calcium, Ion 1.15 1.15 - 1.33 mmol/L 11/06/2024 12:55 PM EDT [facility] RESPIRATORY THERAPY Blood Venous blood specimen / Unknown Existing Catheter / Unknown 11/06/2024 12:24 PM EDT 11/06/2024 12:52 PM EDT Eduarda Bravo PA-C LAB BLOOD ORDERABLES Final Resu lt Performing Organization Address [facility] Co de Phone Number [facility] RESPIRATORY THERAPY [address] [place] [address], [place] * (ABNORMAL) POCT glucose meter (11/06/2024 12:19 PM EDT) [facility] Glucose POC 108(H) 70 - 105 mg/dL 11/06/2024 12:30 PM EDT [facility] ([facility]) Comment:[email or web address] Blood Capillary blood specimen / Unknown 11/06/2024 12:19 PM EDT 11/06/2024 12:30 PM EDT Narrative [facility] ([facility]) - 11/06/2024 12:30 PM EDT Waived Testing in the ED is performed under the ED CLIA certificate #[id number]. us Jose Angel Fox MD LAB BLOOD ORDERABLES Final Resu lt Performing Organization Address [facility] Co de Phone Number [facility] ([facility]) [address] [place] [address] * Vasc Us Lower Extremity Pseudoaneurysm Duplex [...] glucose meter (11/06/2024 7:52 AM EDT) Pathologist [facility] Glucose POC 99 70 - 105 mg/dL 11/06/2024 8:03 AM EDT [facility] LAB ([facility]) Comment:[email or web address] Blood Capillary blood specimen / Unknown 11/06/2024 7:52 AM EDT 11/06/2024 8:03 AM EDT Narrative [facility] ([facility]) - 11/06/2024 8:03 AM EDT Waived Testing in the ED is performed under the ED CLIA certificate #[id number]. us Jose Angel Fox MD LAB BLOOD ORDERABLES Final Resu lt [facility] LAB ([facility]) [address] [place] [address] * (ABNORMAL) CBC auto differential (11/06/2024 5:50 AM EDT) Auto WBC 3.50(L) 4.00 - 10.60 10*3/uL 11/06/2024 6:05 AM EDT [facility] LAB ([facility]) RBC 2.99(L) 3.80 - 5.00 10*6/uL 11/06/2024 6:05 AM EDT [facility] ([facility]) Hemoglobin 8.8(L) 12.0 - 15.0 g/dL 11/06/2024 6:05 AM EDT [facility] ([facility]) Hematocrit 26.6(L) 36.0 - 45.0 % 11/06/2024 6:05 AM EDT [facility] ([facility]) MCV 89.0 82.0 - 98.0 fL 11/06/2024 6:05 AM EDT [facility] ([facility]) MCH 29.4 27.0 - 33.0 pg 11/06/2024 6:05 AM EDT [facility] ([facility]) MCHC 33.1 32.0 - 35.0 g/dL 11/06/2024 6:05 AM EDT [facility] ([facility]) RDW 13.9 11.5 - 15.0 % 11/06/2024 6:05 AM EDT [facility] LAB ([facility]) Neutrophils % 42.5 40.0 - 72.0 % 11/06/2024 6:05 AM [facility] LAB ([facility]) Lymphocytes % 40.0 20.0 - 45.0 % 11/06/2024 6:05 AM [facility] ([facility]) Monocytes % 10.0 5.0 - 12.0 % 11/06/2024 6:05 AM [facility] ([facility]) Eosinophils % 6.3(H) 0.0 - 6.0 % 11/06/2024 6:05 AM [facility] ([facility]) Basophils % 0.9 0.0 - 1.0 % 11/06/2024 6:05 AM [facility] ([facility]) Neutrophils Absolute 1.49(L) 1.60 - 7.60 10*3/uL 11/06/2024 6:05 AM [facility] ([facility]) Lymphocytes Absolute 1.40 1.20 - 4.00 10*3/uL 11/06/2024 6:05 AM [facility] ([facility]) Monocytes Absolute 0.35 0.10 - 1.00 10*3/uL 11/06/2024 6:05 AM [facility] ([facility]) Eosinophils Absolute 0.22 0.00 - 0.50 10*3/uL 11/06/2024 6:05 AM [facility] ([facility]) Basophils Absolute 0.03 0.00 - 0.20 10*3/uL 11/06/2024 6:05 AM [facility] ([facility]) Platelets 185 150 - 400 10*3/uL 11/06/2024 6:05 AM [facility] ([facility]) nRBC % 0.0 0 % 11/06/2024 6:05 AM [facility] ([facility]) Immature Granulocytes % 0.3 0.0 - 1.0 % 11/06/2024 6:05 AM [facility] ([facility]) Immature Granulocytes Absolute 0.01 0.00 - 0.20 10*3/uL 11/06/2024 6:05 AM [facility] ([facility]) Blood Venous blood specimen / Unknown Existing Catheter / Unknown 11/06/2024 5:50 AM EDT 11/06/2024 5:56 AM EDT us Jose Angel Fox MD LAB BLOOD ORDERABLES Final Resu lt Performing Organization Address City/[facility]/ZIP Co de Phone Number [facility]) [address] [place] [address] * Phosphorus (11/06/2024 5:50 AM EDT) Phosphorus 4.7 2.5 - 5.0 mg/dL 11/06/2024 6:52 AM EDT [facility] ([facility]) Blood Venous blood specimen / Unknown Existing Catheter / Unknown 11/06/2024 5:50 AM EDT 11/06/2024 5:56 AM EDT us Rosa Willoughby PA-C LAB BLOOD ORDERABLES Final R esult Performing Organization Address City/[facility]/ZIP Co de Phone Number [facility]) [address] [place] [address] * Magnesium (11/06/2024 5:50 AM EDT) Magnesium 1.9 1.9 - 2.7 mg/dL 11/06/2024 6:52 AM EDT [facility]) Blood Venous blood specimen / Unknown Existing Catheter / Unknown 11/06/2024 5:50 AM EDT 11/06/2024 5:56 AM EDT us Rosa Willoughby PA-C LAB BLOOD ORDERABLES Final R esult Performing Organization Address City/[facility]/ZIP Co de Phone Number [facility]) [address] [place] [address] * (ABNORMAL) Basic metabolic panel (11/06/2024 5:50 AM EDT) Sodium 139 136 - 145 mmol/L 11/06/2024 6:52 AM EDT [facility]) Potassium 3.9 3.5 - 5.1 mmol/L 11/06/2024 6:52 AM EDT [facility] ([facility]) Chloride 105 98 - 107 mmol/L 11/06/2024 6:52 AM EDT [facility] ([facility]) CO2 27 21 - 31 mmol/L 11/06/2024 6:52 AM EDT [facility] ([facility]) BUN 12 7 - 25 mg/dL 11/06/2024 6:52 AM EDT [facility] ([facility]) Creatinine 0.61 0.60 - 1.20 mg/dL 11/06/2024 6:52 AM EDT [facility] ([facility]) Glucose 85 70 - 100 mg/dL 11/06/2024 6:52 AM T [facility] ([facility]) Calcium 8.4(L) 8.6 - 10.3 mg/dL 11/06/2024 6:52 AM EDT [facility] ([facility]) Anion Gap 11 7 - 20 mmol/L 11/06/2024 6:52 AM T [facility] ([facility]) eGFR 119.5 >60.0 mL/min/1. 73m*2 11/06/2024 6:52 AM T [facility] ([facility]) Comment:[facility] s estimated glomerular filtration rate (eGFR) [...] individuals. BUN/Creatinine Ratio 19.7 10/17 6:52 AM T [facility] ([facility]) Blood Venous blood specimen / Unknown Existing Catheter / Unknown 11/06/2024 5:50 AM EDT 11/06/2024 5:56 AM EDT us Rosa Willoughby PA-C LAB BLOOD ORDERABLES Final R esult [facility] ([facility]) [address] [place] [address] * (ABNORMAL) POCT glucose meter (11/05/2024 10:07 PM EDT) Glucose POC 118(H) 70 - 105 mg/dL 11/05/2024 10:24 PM EDT [facility] ([facility]) Comment:[email or web address] Blood Capillary blood specimen / Unknown 11/05/2024 10:07 PM EDT 11/05/2024 10:24 PM EDT [facility] LAB ([facility]) - 11/05/2024 10:24 PM EDT Waived Testing in the ED is performed under the ED CLIA certificate #[id number]. us Jose Angel Fox MD LAB BLOOD ORDERABLES Final Resu lt Performing Organization Address [facility] [facility] Co de Phone Number [facility]) [address] [place] [address] * POCT glucose meter (11/05/2024 4:37 PM EDT) Glucose POC 96 70 - 105 mg/dL 11/05/2024 4:48 PM EDT [facility] ([facility]) Comment:[email or web address] Blood Capillary blood specimen / Unknown 11/05/2024 4:37 PM EDT 11/05/2024 4:48 PM EDT [facility]) - 11/05/2024 4:48 PM EDT Waived Testing in the ED is performed under the ED CLIA certificate #[id number]. us Jose Angel Fox MD LAB BLOOD ORDERABLES Final Resu lt Performing Organization Address City/[facility]/ZIP Co de Phone Number [facility]) [address] [place] [address] * (ABNORMAL) POCT glucose meter (11/05/2024 11:36 AM EDT) Glucose POC 123(H) 70 - 105 mg/dL 11/05/2024 11:47 AM EDT [facility] ([facility]) Comment:[email or web address] Blood Capillary blood specimen / Unknown 11/05/2024 11:36 AM EDT 11/05/2024 11:47 AM EDT Narrative [facility] ([facility]) - 11/05/2024 11:47 AM EDT Waived Testing in the ED is performed under the ED CLIA certificate #[id number]. us Jose Angel Fox MD LAB BLOOD ORDERABLES Final Resu lt [facility]) [address] [place] [address] * (ABNORMAL) Hemoglobin and hematocrit, blood (11/05/2024 9:01 AM EDT) Hemoglobin 9.4(L) 12.0 - 15.0 g/dL 11/05/2024 9:24 AM EDT [facility] ([facility]) Hematocrit 27.5(L) 36.0 - 45.0 % 11/05/2024 9:24 AM EDT [facility] ([facility]) Blood Venous blood specimen / Unknown Existing Catheter / Unknown 11/05/2024 9:01 AM EDT 11/05/2024 9:09 AM EDT us Tomasa Disla MD LAB BLOOD ORDERABLES Fin al Result [facility] ([facility]) [address] [place] [address] * (ABNORMAL) POCT glucose meter (11/05/2024 8:36 AM EDT) Glucose POC 120(H) 70 - 105 mg/dL 11/05/2024 8:46 AM EDT [facility] ([facility]) Comment:[email or web address] Blood Capillary blood specimen / Unknown 11/05/2024 8:36 AM EDT 11/05/2024 8:46 AM EDT Narrative [facility]) - 11/05/2024 8:46 AM EDT Waived Testing in the ED is performed under the ED CLIA certificate #[id number]. us Jose Angel Fox MD LAB BLOOD ORDERABLES Final Resu lt [facility]) [address] [place] [address] * Phosphorus (11/05/2024 3:48 AM EDT) Phosphorus 4.0 2.5 - 5.0 mg/dL 11/05/2024 4:19 AM EDT [facility]) Blood Venous blood specimen / Unknown Existing Catheter / Unknown 11/05/2024 3:48 AM EDT 11/05/2024 3:56 AM EDT us Rosa Willoughby PA-C LAB BLOOD ORDERABLES Final R esult Performing Organization Address City/[facility]/ZIP Co de Phone Number [facility]) [address] [place] [address] * Magnesium (11/05/2024 3:48 AM EDT) Magnesium 1.9 1.9 - 2.7 mg/dL 11/05/2024 4:19 AM EDT [facility]) Blood Venous blood specimen / Unknown Existing Catheter / Unknown 11/05/2024 3:48 AM EDT 11/05/2024 3:56 AM EDT us Rosa Willoughby PA-C LAB BLOOD ORDERABLES Final R esult [facility]) [address] [place], [place] [id number] * (ABNORMAL) Basic metabolic panel (11/05/2024 3:48 AM EDT) Sodium 139 136 - 145 mmol/L 11/05/2024 4:19 AM [facility] ([facility]) Potassium 3.6 3.5 - 5.1 mmol/L 11/05/2024 4:19 AM [facility] ([facility]) Chloride 107 98 - 107 mmol/L 11/05/2024 4:19 AM [facility] ([facility]) CO2 28 21 - 31 mmol/L 11/05/2024 4:19 AM [facility] ([facility]) BUN 11 7 - 25 mg/dL 11/05/2024 4:19 AM [facility] ([facility]) Creatinine 0.48(L) 0.60 - 1.20 mg/dL 11/05/2024 4:19 AM [facility] ([facility]) Glucose 120(H) 70 - 100 mg/dL 11/05/2024 4:19 AM [facility] ([facility]) Calcium 8.0(L) 8.6 - 10.3 mg/dL 11/05/2024 4:19 AM [facility] ([facility]) Anion Gap 8 7 - 20 mmol/L 11/05/2024 4:19 AM [facility] ([facility]) eGFR 126.6 >60.0 mL/min/1. 73m*2 11/05/2024 4:19 AM [facility] ([facility]) Comment:[facility] s estimated glomerular filtration rate (eGFR) [...] individuals. BUN/Creatinine Ratio 22.9 10/17 4:19 AM [facility] ([facility]) Blood Venous blood specimen / Unknown Existing Catheter / Unknown 11/05/2024 3:48 AM EDT 11/05/2024 3:56 AM EDT us Rosa Willoughby PA-C LAB BLOOD ORDERABLES Final R esult [facility] ([facility]) [address] [place] [address] * (ABNORMAL) CBC (11/05/2024 3:48 AM EDT) Auto WBC 3.54(L) 4.00 - 10.60 10*3/uL 11/05/2024 4:23 AM EDT [facility] ([facility]) RBC 2.91(L) 3.80 - 5.00 10*6/uL 11/05/2024 4:23 AM EDT [facility] ([facility]) Hemoglobin 8.6(L) 12.0 - 15.0 g/dL 11/05/2024 4:23 AM EDT [facility] ([facility]) Hematocrit 25.5(L) 36.0 - 45.0 % 11/05/2024 4:23 AM EDT [facility] ([facility]) MCV 87.6 82.0 - 98.0 fL 11/05/2024 4:23 AM EDT [facility] ([facility]) MCH 29.6 27.0 - 33.0 pg 11/05/2024 4:23 AM EDT [facility] ([facility]) MCHC 33.7 32.0 - 35.0 g/dL 11/05/2024 4:23 AM EDT [facility] ([facility]) RDW 14.1 11.5 - 15.0 % 11/05/2024 4:23 AM EDT [facility] ([facility]) Platelets 177 150 - 400 10*3/uL 11/05/2024 4:23 AM EDT [facility] ([facility]) Blood Venous blood specimen / Unknown Existing Catheter / Unknown 11/05/2024 3:48 AM EDT 11/05/2024 3:56 AM EDT us Rosa Willoughby PA-C LAB BLOOD ORDERABLES Final R esult [facility] ([facility]) [address] [place] [address] * Calcium, ionized (11/05/2024 1:00 AM EDT) Calcium, Ion 1.16 1.15 - 1.33 mmol/L 11/05/2024 4:02 AM EDT [facility] RESPIRATORY THERAPY Blood Venous blood specimen / Unknown 11/05/2024 1:00 AM EDT 11/05/2024 3:55 AM EDT Rosa Willoughby PA-C LAB BLOOD ORDERABLES Final R esult Performing Organization Address City/[facility]/ZIP Co de Phone Number [facility] RESPIRATORY THERAPY [address] [place] [address], [place] * (ABNORMAL) Hemoglobin and hematocrit, blood (11/05/2024 12:54 AM EDT) Hemoglobin 8.5(L) 12.0 - 15.0 g/dL 11/05/2024 1:54 AM EDT [facility] ([facility]) Hematocrit 24.9(L) 36.0 - 45.0 % 11/05/2024 1:54 AM EDT [facility] ([facility]) Blood Venous blood specimen / Unknown Existing Catheter / Unknown 11/05/2024 12:54 AM EDT 11/05/2024 1:19 AM EDT Tomasa Disla MD LAB BLOOD ORDERABLES Fin al Result [facility] ([facility]) [address] [place], [place] [id number] * POCT glucose meter (11/04/2024 10:33 PM EDT) Glucose POC 102 70 - 105 mg/dL 11/04/2024 10:44 PM EDT [facility] ([facility]) Comment:[email or web address] Blood Capillary blood specimen / Unknown 11/04/2024 10:33 PM EDT 11/04/2024 10:44 PM EDT Narrative [facility] ([facility]) - 11/04/2024 10:44 PM EDT Waived Testing in the ED is performed under the ED CLIA certificate #[id number]. us Jose Angel Fox MD LAB BLOOD ORDERABLES Final Resu lt [facility] ([facility]) [address] [place] [address] * (ABNORMAL) Basic metabolic panel (11/04/2024 8:17 PM EDT) Sodium 137 136 - 145 mmol/L 11/04/2024 8:42 PM EDT [facility] ([facility]) Potassium 4.0 3.5 - 5.1 mmol/L 11/04/2024 8:42 PM EDT [facility] ([facility]) Chloride 106 98 - 107 mmol/L 11/04/2024 8:42 PM EDT [facility] ([facility]) CO2 27 21 - 31 mmol/L 11/04/2024 8:42 PM EDT [facility] ([facility]) BUN 14 7 - 25 mg/dL 11/04/2024 8:42 PM EDT [facility] ([facility]) Creatinine 0.48(L) 0.60 - 1.20 mg/dL 11/04/2024 8:42 PM EDT [facility] ([facility]) Glucose 82 70 - 100 mg/dL 11/04/2024 8:42 PM EDT [facility] ([facility]) Calcium 7.8(L) 8.6 - 10.3 mg/dL 11/04/2024 8:42 PM EDT [facility] ([facility]) Anion Gap 8 7 - 20 mmol/L 11/04/2024 8:42 PM EDT [facility] ([facility]) eGFR 126.6 >60.0 mL/min/1. 73m*2 11/04/2024 8:42 PM EDT [facility] ([facility]) Comment:[facility] s estimated glomerular filtration rate (eGFR) [...] BUN/Creatinine Ratio 29.2 10/17 8:42 PM EDT [facility] ([facility]) Blood Venous blood specimen / Unknown Existing Catheter / Unknown 11/04/2024 8:17 PM EDT 11/04/2024 8:17 PM EDT us Audie Sylvester PA-C LAB BLOOD ORDERABLES F inal Result [facility]) [address] [place] [address] * (ABNORMAL) Hemoglobin and hematocrit, blood (11/04/2024 8:13 PM EDT) Hemoglobin 9.0(L) 12.0 - 15.0 g/dL 11/04/2024 8:24 PM EDT [facility]) Hematocrit 26.7(L) 36.0 - 45.0 % 11/04/2024 8:24 PM EDT [facility]) Blood Venous blood specimen / Unknown Existing Catheter / Unknown 11/04/2024 8:13 PM EDT 11/04/2024 8:17 PM EDT us Tomasa Disla MD LAB BLOOD ORDERABLES Fin al Result [facility]) [address] [place] [address] * (ABNORMAL) POCT glucose meter (11/04/2024 5:12 PM EDT) Glucose POC 147(H) 70 - 105 mg/dL 11/04/2024 5:23 PM EDT [facility] ([facility]) Comment:[email or web address] Blood Capillary blood specimen / Unknown 11/04/2024 5:12 PM EDT 11/04/2024 5:23 PM EDT Narrative [facility] ([facility]) - 11/04/2024 5:23 PM EDT Waived Testing in the ED is performed under the ED CLIA certificate #[id number]. us Jose Angel Fox MD LAB BLOOD ORDERABLES Final Resu lt [facility] ([facility]) [address] [place] [address] * Transfuse RBC (11/04/2024 4:57 PM EDT) us Tomasa Disla MD BLOOD TRANSFUSION ORDERA BLES Final Result * Transfuse RBC: 1 Units (11/04/2024 4:57 PM EDT) us Tomasa Disla MD BLOOD TRANSFUSION ORDERA BLES Final Result * ECG 12 lead (11/04/2024 1:59 PM EDT) Ventricular Rate 100 BPM GE MUSE Atrial Rate 100 BPM GE MUSE HI Interval 132 ms GE MUSE QRS DURATION 94 ms GE MUSE QT Interval 382 ms GE MUSE QTC CALCULATION(BAZE TT) 492 ms GE MUSE P [employer] 60 degrees GE MUSE R-[employer] 34 degrees GE MUSE T Wave [employer] 58 degrees GE MUSE 11/04/2024 1:40 PM [...] - 15.0 g/dL 11/04/2024 1:49 PM EDT [facility] ([facility]) Hematocrit 23.9(L) 36.0 - 45.0 % 11/04/2024 1:49 PM EDT [facility] ([facility]) Blood Venous blood specimen / Unknown Existing Catheter / Unknown 11/04/2024 1:38 PM EDT 11/04/2024 1:43 PM EDT Tomasa Disla MD LAB BLOOD ORDERABLES Fin al Result Performing Organization Address City/[facility] Co de Phone Number [facility] ([facility]) [address] [place] [address] * (ABNORMAL) Basic metabolic panel (11/04/2024 1:38 PM EDT) Sodium 135(L) 136 - 145 mmol/L 11/04/2024 2:09 PM EDT [facility] ([facility]) Potassium 4.2 3.5 - 5.1 mmol/L 11/04/2024 2:09 PM EDT [facility] ([facility]) Chloride 106 98 - 107 mmol/L 11/04/2024 2:09 PM EDT [facility] ([facility]) CO2 24 21 - 31 mmol/L 11/04/2024 2:09 PM EDT [facility] ([facility]) BUN 13 7 - 25 mg/dL 11/04/2024 2:09 PM EDT [facility] ([facility]) Creatinine 0.61 0.60 - 1.20 mg/dL 11/04/2024 2:09 PM EDT [facility] ([facility]) Glucose 191(H) 70 - 100 mg/dL 11/04/2024 2:09 PM EDT [facility] ([facility]) Calcium 7.6(L) 8.6 - 10.3 mg/dL 11/04/2024 2:09 PM EDT [facility] ([facility]) Anion Gap 9 7 - 20 mmol/L 11/04/2024 2:09 PM EDT [facility] ([facility]) eGFR 119.5 >60.0 mL/min/1. 73m*2 11/04/2024 2:09 PM EDT [facility] ([facility]) Comment:[facility] s estimated glomerular filtration rate (eGFR) [...] BUN/Creatinine Ratio 21.3 10/17 2:09 PM EDT [facility] ([facility]) Blood Venous blood specimen / Unknown Existing Catheter / Unknown 11/04/2024 1:38 PM EDT 11/04/2024 1:43 PM EDT us Tomasa Disla MD LAB BLOOD ORDERABLES Fin al Result [facility] ([facility]) [address] [place] [address] * (ABNORMAL) High Sensitivity Troponin I (11/04/2024 1:38 PM EDT) High Sensitivity Troponin I 36(H) <15 ng/L 11/04/2024 2:13 PM EDT [facility] ([facility]) Blood Venous blood specimen / Unknown Existing Catheter / Unknown 11/04/2024 1:38 PM EDT 11/04/2024 1:43 PM EDT Tomasa Disla MD LAB BLOOD ORDERABLES Fin al Result Performing Organization Address [facility]/ZIP Co de Phone Number [facility] ([facility]) [address] [place] [address] * (ABNORMAL) POCT glucose meter (11/04/2024 1:06 PM EDT) [facility] Glucose POC 125(H) 70 - 105 mg/dL 11/04/2024 1:19 PM EDT [facility] ([facility]) Comment:[email or web address] Blood Capillary blood specimen / Unknown 11/04/2024 1:06 PM EDT 11/04/2024 1:19 PM EDT Narrative [facility] ([facility]) - 11/04/2024 1:19 PM EDT Waived Testing in the ED is performed under the ED CLIA certificate #[id number]. us Jose Angel Fox MD LAB BLOOD ORDERABLES Final Resu lt Performing Organization Address [facility] Co de Phone Number [facility]) [address] [place] [address] * CTA Abdomen Pelvis W IV Contrast [...] are detailed above Electronically signed: Raegan Quinn. Mikayla Jennings PA-C IMG CT PROCEDURES Final Resul t * (ABNORMAL) POCT glucose meter (11/04/2024 9:20 AM EDT) Glucose POC 124(H) 70 - 105 mg/dL 11/04/2024 9:31 AM EDT [facility] ([facility]) Comment:[email or web address] Blood Capillary blood specimen / Unknown 11/04/2024 9:20 AM EDT 11/04/2024 9:31 AM EDT Narrative [facility] ([facility]) - 11/04/2024 9:31 AM EDT Waived Testing in the ED is performed under the ED CLIA certificate #[id number]. Jose Angel Fox MD LAB BLOOD ORDERABLES Final Resu lt Performing Organization Address City/[facility]/ZIP Co de Phone Number [facility] ([facility]) [address] [place] [address] * (ABNORMAL) POCT glucose meter (11/04/2024 5:10 AM EDT) Glucose POC 146(H) 70 - 105 mg/dL 11/04/2024 5:21 AM EDT [facility] ([facility]) Comment:[email or web address] Blood Capillary blood specimen / Unknown 11/04/2024 5:10 AM EDT 11/04/2024 5:21 AM EDT Narrative [facility] ([facility]) - 11/04/2024 5:21 AM EDT Waived Testing in the ED is performed under the ED CLIA certificate #[id number]. Ky Ritter MD LAB BLOOD ORDERABLES Final Re sult Performing Organization Address [facility]/ZIP Co de Phone Number [facility] ([facility]) [address] [place], [place] [id number] * Phosphorus (11/04/2024 5:05 AM EDT) Phosphorus 3.3 2.5 - 5.0 mg/dL 11/04/2024 6:27 AM EDT [facility] ([facility]) Blood Venous blood specimen / Unknown Existing Catheter / Unknown 11/04/2024 5:05 AM EDT 11/04/2024 5:08 AM EDT us Rosa Willoughby PA-C LAB BLOOD ORDERABLES Final R esult Performing Organization Address City/[facility]/ZIP Co de Phone Number [facility]) [address] [place], [place] [id number] * Magnesium (11/04/2024 5:05 AM EDT) Magnesium 1.9 1.9 - 2.7 mg/dL 11/04/2024 6:27 AM EDT [facility] ([facility]) Blood Venous blood specimen / Unknown Existing Catheter / Unknown 11/04/2024 5:05 AM EDT 11/04/2024 5:08 AM EDT us Rosa Willoughby PA-C LAB BLOOD ORDERABLES Final R esult [facility] ([facility]) [address] [place] [address] * (ABNORMAL) Basic metabolic panel (11/04/2024 5:05 AM EDT) Sodium 140 136 - 145 mmol/L 11/04/2024 6:27 AM EDT [facility] ([facility]) Potassium 3.6 3.5 - 5.1 mmol/L 11/04/2024 6:27 AM EDT [facility] ([facility]) Chloride 108(H) 98 - 107 mmol/L 11/04/2024 6:27 AM EDT [facility] ([facility]) CO2 28 21 - 31 mmol/L 11/04/2024 6:27 AM EDT [facility] ([facility]) BUN 9 7 - 25 mg/dL 11/04/2024 6:27 AM EDT [facility] ([facility]) Creatinine 0.45(L) 0.60 - 1.20 mg/dL 11/04/2024 6:27 AM EDT [facility] ([facility]) Glucose 128(H) 70 - 100 mg/dL 11/04/2024 6:27 AM EDT [facility] ([facility]) Calcium 7.6(L) 8.6 - 10.3 mg/dL 11/04/2024 6:27 AM EDT [facility] ([facility]) Anion Gap 8 7 - 20 mmol/L 11/04/2024 6:27 AM T [facility] ([facility]) eGFR 128.6 >60.0 mL/min/1. 73m*2 11/04/2024 6:27 AM EDT [facility] ([facility]) Comment:[facility] s estimated glomerular filtration rate (eGFR) [...] BUN/Creatinine Ratio 20.0 10/17 6:27 AM EDT [facility] ([facility]) Blood Venous blood specimen / Unknown Existing Catheter / Unknown 11/04/2024 5:05 AM EDT 11/04/2024 5:08 AM EDT us Rosa Willoughby PA-C LAB BLOOD ORDERABLES Final R esult [facility]) [address] [place] [address] * (ABNORMAL) CBC (11/04/2024 5:05 AM EDT) Auto WBC 3.79(L) 4.00 - 10.60 10*3/uL 11/04/2024 5:17 AM EDT [facility] ([facility]) RBC 2.66(L) 3.80 - 5.00 10*6/uL 11/04/2024 5:17 AM EDT [facility] ([facility]) Hemoglobin 8.0(L) 12.0 - 15.0 g/dL 11/04/2024 5:17 AM EDT [facility] ([facility]) Hematocrit 23.7(L) 36.0 - 45.0 % 11/04/2024 5:17 AM EDT [facility] ([facility]) MCV 89.1 82.0 - 98.0 fL 11/04/2024 5:17 AM EDT [facility] ([facility]) MCH 30.1 27.0 - 33.0 pg 11/04/2024 5:17 AM EDT [facility] ([facility]) MCHC 33.8 32.0 - 35.0 g/dL 11/04/2024 5:17 AM EDT [facility] ([facility]) RDW 13.9 11.5 - 15.0 % 11/04/2024 5:17 AM EDT [facility] ([facility]) Platelets 185 150 - 400 10*3/uL 11/04/2024 5:17 AM EDT [facility] ([facility]) Blood Venous blood specimen / Unknown Existing Catheter / Unknown 11/04/2024 5:05 AM EDT 11/04/2024 5:08 AM EDT us Rosa Willoughby PA-C LAB BLOOD ORDERABLES Final R esult [facility] ([facility]) [address] [place], [place] [id number] * (ABNORMAL) Calcium, ionized (11/04/2024 5:05 AM EDT) Calcium, Ion 1.12(L) 1.15 - 1.33 mmol/L 11/04/2024 5:15 AM EDT [facility] RESPIRATORY THERAPY Blood Venous blood specimen / Unknown Existing Catheter / Unknown 11/04/2024 5:05 AM EDT 11/04/2024 5:12 AM EDT us Rosa Willoughby PA-C LAB BLOOD ORDERABLES Final R esult [facility] RESPIRATORY THERAPY [address] [place] [address], [place] * (ABNORMAL) POCT glucose meter (11/04/2024 12:12 AM EDT) Glucose POC 190(H) 70 - 105 mg/dL 11/04/2024 12:23 AM EDT [facility] ([facility]) Comment:[email or web address] Blood Capillary blood specimen / Unknown 11/04/2024 12:12 AM EDT 11/04/2024 12:23 AM EDT Narrative [facility] ([facility]) - 11/04/2024 12:23 AM EDT Waived Testing in the ED is performed under the ED CLIA certificate #[id number]. Ky Ritter MD LAB BLOOD ORDERABLES Final Re sult [facility] ([facility]) [address] [place] [address] * (ABNORMAL) Hemoglobin and hematocrit, blood (11/04/2024 12:09 AM EDT) Hemoglobin 8.0(L) 12.0 - 15.0 g/dL 11/04/2024 12:56 AM EDT [facility] ([facility]) Hematocrit 23.5(L) 36.0 - 45.0 % 11/04/2024 12:56 AM EDT [facility] ([facility]) Blood Venous blood specimen / Unknown Existing Catheter / Unknown 11/04/2024 12:09 AM EDT 11/04/2024 12:13 AM EDT Sid Cruz PA-C LAB BLOOD ORDERABLES Final Result Performing Organization Address [facility] Co de Phone Number [facility] ([facility]) [address] [place] [address] * (ABNORMAL) POCT glucose meter (11/03/2024 9:52 PM EDT) Glucose POC 130(H) 70 - 105 mg/dL 11/03/2024 10:03 PM EDT [facility] ([facility]) Comment:[email or web address] Blood Capillary blood specimen / Unknown 11/03/2024 9:52 PM EDT 11/03/2024 10:03 PM EDT Narrative [facility] ([facility]) - 11/03/2024 10:03 PM EDT Waived Testing in the ED is performed under the ED CLIA certificate #[id number]. Ky Ritter MD LAB BLOOD ORDERABLES Final Re sult [facility] ([facility]) [address] [place], [place] [id number] * (ABNORMAL) Hemoglobin and hematocrit, blood (11/03/2024 6:34 PM EDT) [facility] Hemoglobin 8.3(L) 12.0 - 15.0 g/dL 11/03/2024 6:48 PM EDT [facility] ([facility]) Hematocrit 24.9(L) 36.0 - 45.0 % 11/03/2024 6:48 PM EDT [facility] ([facility]) Blood Venous blood specimen / Unknown Existing Catheter / Unknown 11/03/2024 6:34 PM EDT 11/03/2024 6:40 PM EDT Sid Cruz PA-C LAB BLOOD ORDERABLES Final Result [facility]) [address] [place] [address] * POCT glucose meter (11/03/2024 5:35 PM EDT) [facility] Glucose POC 101 70 - 105 mg/dL 11/03/2024 5:45 PM EDT [facility]) Comment:[email or web address] Blood Capillary blood specimen / Unknown 11/03/2024 5:35 PM EDT 11/03/2024 5:45 PM EDT Narrative [facility]) - 11/03/2024 5:45 PM EDT Waived Testing in the ED is performed under the ED CLIA certificate #[id number]. us Ky Ritter MD LAB BLOOD ORDERABLES Final Re sult [facility]) [address] [place] [address] * (ABNORMAL) CBC (11/03/2024 1:23 PM EDT) [facility] Auto WBC 7.60 4.00 - 10.60 10*3/uL 11/03/2024 1:54 PM EDT [facility] ([facility]) RBC 3.01(L) 3.80 - 5.00 10*6/uL 11/03/2024 1:54 PM EDT [facility] ([facility]) Hemoglobin 9.0(L) 12.0 - 15.0 g/dL 11/03/2024 1:54 PM EDT [facility] ([facility]) Hematocrit 26.7(L) 36.0 - 45.0 % 11/03/2024 1:54 PM EDT [facility] ([facility]) MCV 88.7 82.0 - 98.0 fL 11/03/2024 1:54 PM EDT [facility] ([facility]) MCH 29.9 27.0 - 33.0 pg 11/03/2024 1:54 PM EDT [facility] ([facility]) MCHC 33.7 32.0 - 35.0 g/dL 11/03/2024 1:54 PM EDT [facility] ([facility]) RDW 13.9 11.5 - 15.0 % 11/03/2024 1:54 PM EDT [facility] ([facility]) Platelets 253 150 - 400 10*3/uL 11/03/2024 1:54 PM EDT [facility] ([facility]) Blood Venous blood specimen / Unknown Existing Catheter / Unknown 11/03/2024 1:23 PM EDT 11/03/2024 1:34 PM EDT Mikayla Jennings PA-C LAB BLOOD ORDERABLES Final Re sult [facility]) [address] [place] [address] * (ABNORMAL) POCT glucose meter (11/03/2024 11:35 AM EDT) [facility] Glucose POC 145(H) 70 - 105 mg/dL 11/03/2024 11:47 AM EDT [facility] ([facility]) Comment:[email or web address] Blood Capillary blood specimen / Unknown 11/03/2024 11:35 AM EDT 11/03/2024 11:47 AM EDT Narrative [facility] ([facility]) - 11/03/2024 11:47 AM EDT Waived Testing in the ED is performed under the ED CLIA certificate #[id number]. Ky Ritter MD LAB BLOOD ORDERABLES Final Re sult Performing Organization Address [facility]/ZIP Co de Phone Number [facility]) [address] [place] [address] * (ABNORMAL) POCT glucose meter (11/03/2024 7:46 AM EDT) Glucose POC 135(H) 70 - 105 mg/dL 11/03/2024 8:09 AM EDT [facility] ([facility]) Comment:[email or web address] Blood Capillary blood specimen / Unknown 11/03/2024 7:46 AM EDT 11/03/2024 8:09 AM EDT Narrative [facility] ([facility]) - 11/03/2024 8:09 AM EDT Waived Testing in the ED is performed under the ED CLIA certificate #[id number]. Ky Ritter MD LAB BLOOD ORDERABLES Final Re sult Performing Organization Address [facility] Co de Phone Number [facility]) [address] [place] [address] * Phosphorus (11/03/2024 4:46 AM EDT) Phosphorus 3.7 2.5 - 5.0 mg/dL 11/03/2024 5:30 AM EDT [facility] ([facility]) Blood Venous blood specimen / Unknown Existing Catheter / Unknown 11/03/2024 4:46 AM EDT 11/03/2024 4:58 AM EDT Rosa Willoughby PA-C LAB BLOOD ORDERABLES Final R esult [facility] ([facility]) [address] [place] [address] * Magnesium (11/03/2024 4:46 AM EDT) Magnesium 2.2 1.9 - 2.7 mg/dL 11/03/2024 5:30 AM EDT [facility] ([facility]) Blood Venous blood specimen / Unknown Existing Catheter / Unknown 11/03/2024 4:46 AM EDT 11/03/2024 4:58 AM EDT us Rosa Willoughby PA-C LAB BLOOD ORDERABLES Final R esult Performing Organization Address City/[facility]/ZIP Co de Phone Number [facility] ([facility]) [address] [place], [place] [id number] * (ABNORMAL) Basic metabolic panel (11/03/2024 4:46 AM EDT) Sodium 136 136 - 145 mmol/L 11/03/2024 5:30 AM EDT [facility] ([facility]) Potassium 4.4 3.5 - 5.1 mmol/L 11/03/2024 5:30 AM EDT [facility] ([facility]) Chloride 108(H) 98 - 107 mmol/L 11/03/2024 5:30 AM EDT [facility] ([facility]) CO2 22 21 - 31 mmol/L 11/03/2024 5:30 AM EDT [facility] ([facility]) BUN 6(L) 7 - 25 mg/dL 11/03/2024 5:30 AM EDT [facility] ([facility]) Creatinine 0.52(L) 0.60 - 1.20 mg/dL 11/03/2024 5:30 AM EDT [facility] ([facility]) Glucose 170(H) 70 - 100 mg/dL 11/03/2024 5:30 AM EDT [facility] ([facility]) Calcium 7.9(L) 8.6 - 10.3 mg/dL 11/03/2024 5:30 AM EDT [facility] ([facility]) Anion Gap 10 7 - 20 mmol/L 11/03/2024 5:30 AM EDT [facility] ([facility]) eGFR 124.2 >60.0 mL/min/1. 73m*2 11/03/2024 5:30 AM EDT [facility] ([facility]) Comment:[facility] s estimated glomerular filtration rate (eGFR) [...] BUN/Creatinine Ratio 11.5 10/16 5:30 AM EDT [facility] ([facility]) Blood Venous blood specimen / Unknown Existing Catheter / Unknown 11/03/2024 4:46 AM EDT 11/03/2024 4:58 AM EDT us Rosa Willoughby PA-C LAB BLOOD ORDERABLES Final R esult [facility] ([facility]) [address] [place] [address] * (ABNORMAL) CBC (11/03/2024 4:46 AM EDT) Auto WBC 6.23 4.00 - 10.60 10*3/uL 11/03/2024 5:09 AM EDT [facility] ([facility]) RBC 3.23(L) 3.80 - 5.00 10*6/uL 11/03/2024 5:09 AM EDT [facility] ([facility]) Hemoglobin 9.5(L) 12.0 - 15.0 g/dL 11/03/2024 5:09 AM EDT [facility] ([facility]) Hematocrit 28.7(L) 36.0 - 45.0 % 11/03/2024 5:09 AM EDT [facility] ([facility]) MCV 88.9 82.0 - 98.0 fL 11/03/2024 5:09 AM EDT [facility] ([facility]) MCH 29.4 27.0 - 33.0 pg 11/03/2024 5:09 AM EDT [facility] ([facility]) MCHC 33.1 32.0 - 35.0 g/dL 11/03/2024 5:09 AM EDT [facility] ([facility]) RDW 13.6 11.5 - 15.0 % 11/03/2024 5:09 AM EDT [facility] ([facility]) Platelets 248 150 - 400 10*3/uL 11/03/2024 5:09 AM EDT [facility] ([facility]) Blood Venous blood specimen / Unknown Existing Catheter / Unknown 11/03/2024 4:46 AM EDT 11/03/2024 4:58 AM EDT us Rosa Willoughby PA-C LAB BLOOD ORDERABLES Final R esult [facility] ([facility]) [address] [place] [address] * Calcium, ionized (11/03/2024 4:46 AM EDT) Calcium, Ion 1.16 1.15 - 1.33 mmol/L 11/03/2024 5:32 AM EDT [facility] RESPIRATORY THERAPY Blood Venous blood specimen / Unknown Existing Catheter / Unknown 11/03/2024 4:46 AM EDT 11/03/2024 5:20 AM EDT us Rosa Willoughby PA-C LAB BLOOD ORDERABLES Final R esult [facility] RESPIRATORY THERAPY [address] [place] [address], [place] * (ABNORMAL) INTEM C (11/03/2024 1:58 AM EDT) INTEM C CLOTTING TIME 169 139 - 205 s 11/03/2024 1:58 AM EDT [facility] RESPIRATORY THERAPY INTEM C AMPLITUDE 5 MIN 48 36 - 54 mm 11/03/2024 1:58 AM EDT [facility] RESPIRATORY THERAPY INTEM C AMPLITUDE 10 MIN 57 46 - 63 mm 11/03/2024 1:58 AM EDT [facility] RESPIRATORY THERAPY INTEM C AMPLITUDE 20 MIN 63 53 - 68 mm 11/03/2024 1:58 AM EDT [facility] RESPIRATORY THERAPY INTEM C MAXIMUM CLOT FIRMNESS 63 55 - 70 mm 11/03/2024 1:58 AM EDT [facility] RESPIRATORY THERAPY INTEM C LYSIS INDEX 60 MIN 95 93 - 100 % 11/03/2024 1:58 AM EDT [facility] RESPIRATORY THERAPY INTEM C MAXIMUM LYSIS 12(H) 0 - 7 % 11/03/2024 1:58 AM EDT [facility] RESPIRATORY THERAPY Comment:HI^Preliminary Resul t Blood 11/03/2024 1:58 AM EDT 11/03/2024 1:58 AM EDT us Ky Ritter MD LAB BLOOD ORDERABLES Final Re sult [facility] RESPIRATORY THERAPY [address] [place] [address], * HEPTEM C (11/03/2024 1:58 AM EDT) HEPTEM C CLOTTING TIME 168 141 - 215 s 11/03/2024 1:58 AM EDT [facility] RESPIRATORY THERAPY HEPTEM C AMPLITUDE 5 MIN 46 33 - 51 mm 11/03/2024 1:58 AM EDT [facility] RESPIRATORY THERAPY HEPTEM C AMPLITUDE 10 MIN 56 44 - 61 mm 11/03/2024 1:58 AM EDT [facility] RESPIRATORY THERAPY HEPTEM C AMPLITUDE 20 MIN 62 52 - 67 mm 11/03/2024 1:58 AM EDT [facility] RESPIRATORY THERAPY HEPTEM C MAXIMUM CLOT FIRMNESS 63 54 - 69 mm 11/03/2024 1:58 AM EDT [facility] RESPIRATORY THERAPY Blood 11/03/2024 1:58 AM EDT 11/03/2024 1:58 AM EDT Ky Ritter MD LAB BLOOD ORDERABLES Final Re sult Performing Organization Address [facility] Co de Phone Number [facility] RESPIRATORY THERAPY [address] [place] [address], [place] * (ABNORMAL) EXTEM C (11/03/2024 1:58 AM EDT) EXTEM C CLOTTING TIME 51 51 - 73 s 11/03/2024 1:58 AM EDT [facility] RESPIRATORY THERAPY EXTEM C AMPLITUDE 5 MIN 52 33 - 52 mm 11/03/2024 1:58 AM EDT [facility] RESPIRATORY THERAPY EXTEM C AMPLITUDE 10 MIN 61 45 - 62 mm 11/03/2024 1:58 AM EDT [facility] RESPIRATORY THERAPY EXTEM C AMPLITUDE 20 MIN 67 54 - 69 mm 11/03/2024 1:58 AM EDT [facility] RESPIRATORY THERAPY EXTEM C MAXIMUM CLOT FIRMNESS 68 57 - 72 mm 11/03/2024 1:58 AM EDT [facility] RESPIRATORY THERAPY EXTEM C LYSIS INDEX 60 MIN 96 94 - 100 % 11/03/2024 1:58 AM EDT [facility] RESPIRATORY THERAPY EXTEM C MAXIMUM LYSIS 10(H) 0 - 6 % 11/03/2024 1:58 AM EDT [facility] RESPIRATORY THERAPY Comment:HI^Preliminary Resul t Blood 11/03/2024 1:58 AM EDT 11/03/2024 1:58 AM EDT Ky Ritter MD LAB BLOOD ORDERABLES Final Re sult Performing Organization Address [facility] Co de Phone Number [facility] RESPIRATORY THERAPY [address] [place] [address], [place] * FIBTEM C (11/03/2024 1:58 AM EDT) FIBTEM C AMPLITUDE 5 MIN 12 5 - 16 mm 11/03/2024 1:58 AM EDT [facility] RESPIRATORY THERAPY FIBTEM C AMPLITUDE 10 MIN 13 6 - 17 mm 11/03/2024 1:58 AM EDT [facility] RESPIRATORY THERAPY FIBTEM C AMPLITUDE 20 MIN 14 6 - 18 mm 11/03/2024 1:58 AM EDT [facility] RESPIRATORY THERAPY FIBTEM C MAXIMUM CLOT FIRMNESS 15 6 - 19 mm 11/03/2024 1:58 AM EDT [facility] RESPIRATORY THERAPY Blood 11/03/2024 1:58 AM EDT 11/03/2024 1:58 AM EDT us Ky Ritter MD LAB BLOOD ORDERABLES Final Re sult [facility] RESPIRATORY THERAPY [address] [place] [address], [place] * (ABNORMAL) CBC (11/03/2024 12:07 AM EDT) Auto WBC 7.71 4.00 - 10.60 10*3/uL 11/03/2024 12:41 AM EDT [facility] ([facility]) RBC 3.26(L) 3.80 - 5.00 10*6/uL 11/03/2024 12:41 AM EDT [facility] ([facility]) Hemoglobin 9.7(L) 12.0 - 15.0 g/dL 11/03/2024 12:41 AM EDT [facility] ([facility]) Hematocrit 29.0(L) 36.0 - 45.0 % 11/03/2024 12:41 AM EDT [facility] ([facility]) MCV 89.0 82.0 - 98.0 fL 11/03/2024 12:41 AM EDT [facility] ([facility]) MCH 29.8 27.0 - 33.0 pg 11/03/2024 12:41 AM EDT [facility] ([facility]) MCHC 33.4 32.0 - 35.0 g/dL 11/03/2024 12:41 AM EDT [facility] ([facility]) RDW 13.3 11.5 - 15.0 % 11/03/2024 12:41 AM EDT [facility] ([facility]) Platelets 216 150 - 400 10*3/uL 11/03/2024 12:41 AM EDT [facility] ([facility]) Blood Venous blood specimen / Unknown Existing Catheter / Unknown 11/03/2024 12:07 AM EDT 11/03/2024 12:33 AM EDT us Rosa Willoughby PA-C LAB BLOOD ORDERABLES Final R esult [facility] ([facility]) [address] [place] [address] * Phosphorus (11/03/2024 12:07 AM EDT) Phosphorus 2.7 2.5 - 5.0 mg/dL 11/03/2024 12:57 AM EDT [facility] ([facility]) Blood Venous blood specimen / Unknown Existing Catheter / Unknown 11/03/2024 12:07 AM EDT 11/03/2024 12:33 AM EDT Rosa Willoughby PA-C LAB BLOOD ORDERABLES Final R esult [facility] ([facility]) [address] [place] [address] * (ABNORMAL) Magnesium (11/03/2024 12:07 AM EDT) Magnesium 1.5(L) 1.9 - 2.7 mg/dL 11/03/2024 12:57 AM EDT [facility] ([facility]) Blood Venous blood specimen / Unknown Existing Catheter / Unknown 11/03/2024 12:07 AM EDT 11/03/2024 12:33 AM EDT us Rosa Willoughby PA-C LAB BLOOD ORDERABLES Final R esult [facility] ([facility]) [address] [place] [address] * (ABNORMAL) Basic metabolic panel (11/03/2024 12:07 AM EDT) Sodium 135(L) 136 - 145 mmol/L 11/03/2024 12:57 AM [facility] ([facility]) Potassium 4.9 3.5 - 5.1 mmol/L 11/03/2024 12:57 AM [facility] ([facility]) Chloride 110(H) 98 - 107 mmol/L 11/03/2024 12:57 AM [facility] ([facility]) CO2 20(L) 21 - 31 mmol/L 11/03/2024 12:57 AM [facility] ([facility]) BUN 8 7 - 25 mg/dL 11/03/2024 12:57 AM [facility] ([facility]) Creatinine 0.53(L) 0.60 - 1.20 mg/dL 11/03/2024 12:57 AM [facility] ([facility]) Glucose 168(H) 70 - 100 mg/dL 11/03/2024 12:57 AM [facility] ([facility]) Calcium 7.6(L) 8.6 - 10.3 mg/dL 11/03/2024 12:57 AM [facility] ([facility]) Anion Gap 10 7 - 20 mmol/L 11/03/2024 12:57 AM [facility] ([facility]) eGFR 123.6 >60.0 mL/min/1. 73m*2 11/03/2024 12:57 AM [facility] ([facility]) Comment:[facility] s estimated glomerular filtration rate (eGFR) [...] individuals. BUN/Creatinine Ratio 15.1 10/16 12:57 AM [facility] ([facility]) Blood Venous blood specimen / Unknown Existing Catheter / Unknown 11/03/2024 12:07 AM EDT 11/03/2024 12:33 AM EDT us Rosa Willoughby PA-C LAB BLOOD ORDERABLES Final R esult [facility]) [address] [place] [address] * Fibrinogen (11/03/2024 12:07 AM EDT) Fibrinogen 328 150 - 425 mg/dL 11/03/2024 12:53 AM EDT [facility] ([facility]) Blood Venous blood specimen / Unknown Existing Catheter / Unknown 11/03/2024 12:07 AM EDT 11/03/2024 12:27 AM EDT us Jose Angel Fox MD LAB BLOOD ORDERABLES Final Resu lt Performing Organization Address [facility]/ZIP Co de Phone Number [facility]) [address] [place] [address] * (ABNORMAL) Protime-INR (11/03/2024 12:07 AM EDT) Protime 14.9(H) 12.3 - 14.8 Seconds 11/03/2024 12:53 AM EDT [facility]) INR 1.17(H) 0.90 - 1.10 11/03/2024 12:53 AM EDT [facility]) Comment: [facility] RECOMMENDED INR FOR WARFARIN THERAPY [...] ORDERABLES Final Resu lt Performing Organization Address [facility]/ZIP Co de Phone Number [facility] ([facility]) [address] [place] [address] * (ABNORMAL) POCT glucose meter (11/02/2024 10:48 PM EDT) [facility] Glucose POC 151(H) 70 - 105 mg/dL 11/02/2024 10:59 PM EDT [facility] ([facility]) Comment:[facility] Blood Capillary blood specimen / Unknown 11/02/2024 10:48 PM EDT 11/02/2024 10:59 PM EDT Narrative [facility] ([facility]) - 11/02/2024 10:59 PM EDT Waived Testing in the ED is performed under the ED CLIA certificate #[id number]. Ky Ritter MD LAB BLOOD ORDERABLES Final Re sult Performing Organization Address City/[facility]/ZIP Co de Phone Number [facility] ([facility]) [address] [place] [address] * Transfuse RBC (11/02/2024 9:35 PM EDT) Tarik Mayers CAA BLOOD TRANSFUSION ORDERABLES Fi nal Result * Transfuse RBC (11/02/2024 9:32 PM EDT) Tarik Mayers CAA BLOOD TRANSFUSION ORDERABLES Fi nal Result * (ABNORMAL) POCT glucose meter (11/02/2024 8:30 PM EDT) Glucose POC 160(H) 70 - 105 mg/dL 11/02/2024 8:41 PM EDT [facility] ([facility]) Comment: Blood Capillary blood specimen / Unknown 11/02/2024 8:30 PM EDT 11/02/2024 8:41 PM EDT Narrative [facility] ([facility]) - 11/02/2024 8:41 PM EDT Waived Testing in the ED is performed under the ED CLIA certificate #[id number]. us Ky Ritter MD LAB BLOOD ORDERABLES Final Re sult [facility] ([facility]) [address] [place] [address] * Prepare RBC: 1 Units (11/02/2024 8:05 PM EDT) PRODUCT CODE [id number] [facility] Unit Number [id number] [facility] BLOOD [facility]ANK Unit ABO O [facility] BLOOD [facility] Unit Rh POS [facility] BLOOD [facility] Crossmatch Interpretation COMP [facility] B[facility] Dispense Status TR [facility] B[facility]OD [facility] Blood Expiration Date [facility]OD [facility] Product Blood Type 5100 [facility] BLOOD [facility] Unit Volume 300 ML [facility] BLO OD BANK Other 11/02/2024 8:05 PM EDT us Tomasa Disla MD BLOOD BANK PRODUCT ORDER JIN Final Result [facility] BLOOD [facility] * Prepare RBC: 2 Units (11/02/2024 8:05 PM EDT) PRODUCT CODE [id number] [facility] Unit Number [id number] [facility] BLOOD [facility]ANK Unit ABO O [facility] BLO[facility] Unit Rh POS [facility] BLOOD [facility] Crossmatch Interpretation COMP [facility] BLOOD [facility] Dispense Status TR [facility] BLOOD [facility] Blood [facility]piration Date [facility] BLOOD [facility] Product Blood Type 5100 [facility] BLOOD [facility] Unit Volume 300 ML [facility] BLO OD BANK PRODUCT CODE [id number] [facility] Unit [facility] [id number] [facility] BLOOD BANK Unit ABO O [facility] BLOOD [facility] Unit Rh POS [facility] BLOOD [facility] Crossmatch Interpretation COMP [facility] B[facility] Dispense Status TR [facility] BLOOD [facility] Blood Expiration Date [facility] BLOOD [facility] Product Blood Type 5100 [facility] BLOOD [facility] Other 11/02/2024 8:05 PM EDT Wali Collins MD BLOOD BANK PRODUCT ORDERAB LES Final Result [facility] FACILITY BLOOD BANK * Type and screen (11/02/2024 8:02 PM EDT) ABO Grouping O 11/02/2024 8:42 PM EDT [facility] BLOOD BANK Rh Type POS 11/02/2024 8:42 PM EDT [facility] BLOOD BANK Ab Scrn NEG 11/02/2024 8:42 PM EDT [facility] BLOOD BANK Blood Venous blood specimen / Unknown Existing Catheter / Unknown 11/02/2024 8:02 PM EDT 11/02/2024 8:02 PM EDT Wali Collins MD LAB BLOOD BANK TEST ORDERA BLES Final Result [facility] BLOOD BANK * (ABNORMAL) CBC (11/02/2024 8:02 PM EDT) Auto WBC 9.01 4.00 - 10.60 10*3/uL 11/02/2024 8:13 PM EDT [facility] LAB (BEAKER) RBC 3.18(L) 3.80 - 5.00 10*6/uL 11/02/2024 8:13 PM EDT [facility] ([facility]) Hemoglobin 9.4(L) 12.0 - 15.0 g/dL 11/02/2024 8:13 PM EDT [facility] ([facility]) Hematocrit 28.9(L) 36.0 - 45.0 % 11/02/2024 8:13 PM EDT [facility] ([facility]) MCV 90.9 82.0 - 98.0 fL 11/02/2024 8:13 PM EDT [facility] ([facility]) MCH 29.6 27.0 - 33.0 pg 11/02/2024 8:13 PM EDT [facility] ([facility]) MCHC 32.5 32.0 - 35.0 g/dL 11/02/2024 8:13 PM EDT [facility] ([facility]) RDW 13.2 11.5 - 15.0 % 11/02/2024 8:13 PM EDT [facility] ([facility]) Platelets 358 150 - 400 10*3/uL 11/02/2024 8:13 PM EDT [facility] ([facility]) Blood Venous blood specimen / Unknown Existing Catheter / Unknown 11/02/2024 8:02 PM EDT 11/02/2024 8:02 PM EDT us Wali Collins MD LAB BLOOD ORDERABLES Final Result [facility]) [address] [place], [place] [id number] * Red Top (11/02/2024 8:00 PM EDT) Extra Tube Hold for add-ons. 11/02/2024 10:02 PM EDT [facility]) Comment:Auto resulted. Blood Venous blood specimen / Unknown 11/02/2024 8:00 PM EDT 11/02/2024 8:19 PM EDT us Ky Ritter MD LAB BLOOD ORDERABLES Final Re sult [facility]) [address] [place] [address] * (ABNORMAL) Activated clotting time (11/02/2024 4:43 PM EDT) Activated Clotting Time 176(H) 82 - 152 s 11/02/2024 5:54 PM EDT [facility] ([facility]) Blood Venous blood specimen / Unknown 11/02/2024 4:43 PM EDT 11/02/2024 5:54 PM EDT us Ky Ritter MD LAB POINT OF CARE TE ST DOCKED DEVICE UNSOLICITED RESULTS Final Result [facility] ([facility]) [address] [place] [address] * (ABNORMAL) POCT activated clotting time manually [...] - 152 s 11/02/2024 5:54 PM EDT [facility] ([facility]) Blood Venous blood specimen / Unknown 11/02/2024 4:13 PM EDT 11/02/2024 5:54 PM EDT us Ky Ritter MD LAB POINT OF CARE TE ST DOCKED DEVICE UNSOLICITED RESULTS Final Result [facility] ([facility]) [address] [place] [address] * (ABNORMAL) Activated clotting time (11/02/2024 2:56 PM EDT) Activated Clotting Time 227(H) 82 - 152 s 11/02/2024 3:02 PM EDT [facility] ([facility]) Blood Venous blood specimen / Unknown 11/02/2024 2:56 PM EDT 11/02/2024 3:02 PM EDT Ky Ritter MD LAB POINT OF CARE TE ST DOCKED DEVICE UNSOLICITED RESULTS Final Result Performing Organization Address [facility] Co de Phone Number [facility] ([facility]) [address] [place] [address] * CORONARY ANGIOGRAPHY, ULTRASOUND - CORONARY, INSTANT [...] infiltrated over the right femoral artery. A 6-Guyanese sheath was placed in right femoral artery. Coronary angiography was performed with a JL4 and then repeated after IC nitroglycerin 50 mcg x 2. At this time, it was apparent that the LAD had a moderate stenosis and IVUS and iFR were performed. Heparin anticoagulation was used for this procedure. ACT was maintained at >250 seconds. A 6 Guyanese xb3 was engaged to the [place]. 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] Unstable angina yK Ritter MD CV CARDIAC CATH PROCEDURES Fi nal Result * (ABNORMAL) Activated clotting time (11/02/2024 2:24 PM EDT) Activated Clotting Time 339(H) 82 - 152 s 11/02/2024 2:28 PM EDT [facility] ([facility]) Blood Venous blood specimen / Unknown 11/02/2024 2:24 PM EDT 11/02/2024 2:28 PM EDT us Ky Ritter MD LAB POINT OF CARE TE ST DOCKED DEVICE UNSOLICITED RESULTS Final Result [facility] ([facility]) [address] [place] [address] * ECG 12 lead (11/02/2024 1:18 PM EDT) Ventricular Rate 74 BPM GE MUSE Atrial Rate 74 BPM GE MUSE HI Interval 138 ms GE MUSE QRS DURATION 84 ms GE MUSE QT Interval 454 ms GE MUSE QTC CALCULATION(BAZE TT) 503 ms GE MUSE P [employer] 54 degrees GE MUSE R-[employer] 41 degrees GE MUSE T Wave [employer] 77 degrees GE MUSE 11/02/2024 1:02 PM [...] Sensitivity Troponin I (11/02/2024 1:01 PM EDT) [facility] High Sensitivity Troponin I 47(H) <15 ng/L 11/02/2024 1:57 PM EDT [facility] ([facility]) Blood Venous blood specimen / Unknown Existing Catheter / Unknown 11/02/2024 1:01 PM EDT 11/02/2024 1:19 PM EDT us Ky Ritter MD LAB BLOOD ORDERABLES Final Re sult Performing Organization Address City/[facility]/ZIP Co de Phone Number [facility] ([facility]) [address] [place] [address] * (ABNORMAL) POCT glucose meter (11/02/2024 11:07 AM EDT) Glucose POC 115(H) 70 - 105 mg/dL 11/02/2024 11:18 AM EDT [facility] ([facility]) Comment:[email or web address] Blood Capillary blood specimen / Unknown 11/02/2024 11:07 AM EDT 11/02/2024 11:18 AM EDT Narrative [facility] ([facility]) - 11/02/2024 11:18 AM EDT Waived Testing in the ED is performed under the ED CLIA certificate #[id number]. us Ky Ritter MD LAB BLOOD ORDERABLES Final Re sult Performing Organization Address [facility]/ZIP Co de Phone Number [facility] ([facility]) [address] [place] [address] * (ABNORMAL) POCT glucose meter (11/02/2024 7:31 AM EDT) Glucose POC 150(H) 70 - 105 mg/dL 11/02/2024 7:42 AM EDT [facility] ([facility]) Comment:[email or web address] Blood Capillary blood specimen / Unknown 11/02/2024 7:31 AM EDT 11/02/2024 7:42 AM EDT Narrative [facility] ([facility]) - 11/02/2024 7:42 AM EDT Waived Testing in the ED is performed under the ED CLIA certificate #[id number]. us Ky Ritter MD LAB BLOOD ORDERABLES Final Re sult Performing Organization Address City/[facility]/ZIP Co de Phone Number [facility]) [address] [place] [address] * Light Green Top (11/02/2024 6:15 AM EDT) Extra Tube Hold for add-ons. 11/02/2024 8:01 AM EDT [facility] ([facility]) Comment:Auto resulted. Blood Venous blood specimen / Unknown Existing Catheter / Unknown 11/02/2024 6:15 AM EDT 11/02/2024 6:38 AM EDT us Ky Ritter MD LAB BLOOD ORDERABLES Final Re sult [facility] ([facility]) [address] [place] [address] * (ABNORMAL) CBC (11/02/2024 6:15 AM EDT) Auto WBC 4.49 4.00 - 10.60 10*3/uL 11/02/2024 7:18 AM EDT [facility] ([facility]) RBC 3.69(L) 3.80 - 5.00 10*6/uL 11/02/2024 7:18 AM EDT [facility] ([facility]) Hemoglobin 10.8(L) 12.0 - 15.0 g/dL 11/02/2024 7:18 AM EDT [facility] ([facility]) Hematocrit 33.3(L) 36.0 - 45.0 % 11/02/2024 7:18 AM EDT [facility] ([facility]) MCV 90.2 82.0 - 98.0 fL 11/02/2024 7:18 AM EDT [facility] ([facility]) MCH 29.3 27.0 - 33.0 pg 11/02/2024 7:18 AM EDT [facility] ([facility]) MCHC 32.4 32.0 - 35.0 g/dL 11/02/2024 7:18 AM EDT [facility] ([facility]) RDW 13.4 11.5 - 15.0 % 11/02/2024 7:18 AM EDT [facility] ([facility]) Platelets 292 150 - 400 10*3/uL 11/02/2024 7:18 AM EDT [facility] ([facility]) Blood Venous blood specimen / Unknown 11/02/2024 6:15 AM EDT 11/02/2024 6:37 AM EDT Debbie Luna [employer] LAB BLOOD ORDERABLES Final Resu lt Performing Organization Address [facility]/ZIP Co de Phone Number [facility]) [address] [place] [address] * (ABNORMAL) POCT glucose meter (11/01/2024 8:42 PM EDT) Glucose POC 106(H) 70 - 105 mg/dL 11/01/2024 8:54 PM EDT [facility] ([facility]) Comment:[email or web address] Blood Capillary blood specimen / Unknown 11/01/2024 8:42 PM EDT 11/01/2024 8:54 PM EDT Narrative [facility] ([facility]) - 11/01/2024 8:54 PM EDT Waived Testing in the ED is performed under the ED CLIA certificate #[id number]. Ky Ritter MD LAB BLOOD ORDERABLES Final Re sult Performing Organization Address City/[facility]/ZIP Co de Phone Number [facility]) [address] [place] [id number] * POCT glucose meter (11/01/2024 6:04 PM EDT) Glucose POC 102 70 - 105 mg/dL 11/01/2024 6:20 PM EDT [facility] ([facility]) Comment:[email or web address] Blood Capillary blood specimen / Unknown 11/01/2024 6:04 PM EDT 11/01/2024 6:20 PM EDT Narrative [facility] ([facility]) - 11/01/2024 6:20 PM EDT Waived Testing in the ED is performed under the ED CLIA certificate #[id number]. us Ky Ritter MD LAB BLOOD ORDERABLES Final Re sult Performing Organization Address [facility] Co de Phone Number [facility]) [address] [place] [address] * (ABNORMAL) Activated clotting time (11/01/2024 4:36 PM EDT) Activated Clotting Time 160(H) 82 - 152 s 11/02/2024 12:11 PM EDT [facility] ([facility]) Blood Venous blood specimen / Unknown 11/01/2024 4:36 PM EDT 11/02/2024 12:11 PM EDT us Ky Ritter MD LAB POINT OF CARE TE ST DOCKED DEVICE UNSOLICITED RESULTS Final Result Performing Organization Address [facility] Co de Phone Number [facility]) [address] [place] [phone] * (ABNORMAL) POCT activated clotting time docked device (11/01/2024 4:33 PM EDT) Activated Clotting Time POC 160(A) 82 - 152 sec [facility]) Blood 11/01/2024 4:33 PM EDT us Ky Ritter MD LAB POINT OF CARE TEST DOCKED DEVICE ORDERABLES Final Result Performing Organization Address City/[facility] Co de Phone Number [facility]) [address] [place] [address] * CORONARY ANGIOGRAPHY, ULTRASOUND - CORONARY (11/01/2024 [...] on TPN presents a direct admission from [facility] with chief complaint of chest pain. [...] infiltrated over the right femoral artery. A 5-Guyanese Terumo sheath was placed in right femoral [...] was maintained at >250 seconds. A 5 Guyanese Cordis XB 3.0 guide was engaged to the left main. I decided to proceed with IVUS. I then advanced a Runthrough wire to the distal left anterior descending. Next, I advanced a LessThan3 IVUS catheter. IVUS imaging was performed and [...] - 152 s 11/01/2024 1:37 PM EDT [facility] ([facility]) Blood Venous blood specimen / Unknown 11/01/2024 1:27 PM EDT 11/01/2024 1:36 PM EDT us Ky Ritter MD LAB POINT OF CARE TE ST DOCKED DEVICE UNSOLICITED RESULTS Final Result Performing Organization Address City/[facility]/ZIP Co de Phone Number [facility]) [address] [place] [address] * (ABNORMAL) Activated clotting time (11/01/2024 1:14 PM EDT) Activated Clotting Time 222(H) 82 - 152 s 11/01/2024 1:19 PM EDT [facility]) Blood Venous blood specimen / Unknown 11/01/2024 1:14 PM EDT 11/01/2024 1:19 PM EDT us Ky Ritter MD LAB POINT OF CARE TE ST DOCKED DEVICE UNSOLICITED RESULTS Final Result [facility]) [address] [place] [address] * ECG 12 lead (11/01/2024 12:09 PM EDT) Ventricular Rate 76 BPM GE MUSE Atrial Rate 76 BPM GE MUSE HI Interval 132 ms GE MUSE QRS DURATION 84 ms GE MUSE QT Interval 444 ms GE MUSE QTC CALCULATION(BAZE TT) 499 ms GE MUSE P [employer] 72 degrees GE MUSE R-[employer] 50 degrees GE MUSE T Wave [employer] 89 degrees GE MUSE 11/01/2024 11:5 7 AM EDT 11/01/2024 11:37 PM EDT Impressions GE MUSE - 11/01/2024 11:37 PM EDT Normal sinus rhythm T ciro, consider anterior and high lateral ischemia Prolonged QT Abnormal ECG Confirmed by Griffin Diaz ([id number]) on 11/01/2024 11:37:39 PM Narrative Procedure Note Jonelle Harirson MD - 11/01/2024 IMPRESSION: Normal sinus rhythm T ciro, consider anterior and high lateral ischemia Prolonged QT Abnormal ECG Confirmed by Griffin Diaz ([id number]) on 11/01/2024 11:37:39 PM Ky Ritter MD ECG ORDERABLES Final Result [facility] * (ABNORMAL) POCT glucose meter (11/01/2024 11:30 AM EDT) Pathologist [facility] Glucose POC 109(H) 70 - 105 mg/dL 11/01/2024 12:44 PM EDT [facility] ([email or web address]) Comment:[email or web address] Blood Capillary blood specimen / Unknown 11/01/2024 11:30 AM EDT 11/01/2024 12:44 PM EDT Narrative [facility] ([facility]) - 11/01/2024 12:44 PM EDT Waived Testing in the ED is performed under the ED CLIA certificate #[id number]. us Ky Ritter MD LAB BLOOD ORDERABLES Final Re sult [facility] ([facility]) [address] [place] [address] * (ABNORMAL) Basic metabolic panel (11/01/2024 10:10 AM EDT) Sodium 137 136 - 145 mmol/L 11/01/2024 10:50 AM [facility] ([facility]) Potassium 4.6 3.5 - 5.1 mmol/L 11/01/2024 10:50 AM [facility] ([facility]) Chloride 106 98 - 107 mmol/L 11/01/2024 10:50 AM [facility] ([facility]) CO2 27 21 - 31 mmol/L 11/01/2024 10:50 AM [facility] ([facility]) BUN 9 7 - 25 mg/dL 11/01/2024 10:50 AM [facility] ([facility]) Creatinine 0.53(L) 0.60 - 1.20 mg/dL 11/01/2024 10:50 AM [facility] ([facility]) Glucose 98 70 - 100 mg/dL 11/01/2024 10:50 AM [facility] ([facility]) Calcium 8.6 8.6 - 10.3 mg/dL 11/01/2024 10:50 AM [facility] ([facility]) Anion Gap 9 7 - 20 mmol/L 11/01/2024 10:50 AM [facility] ([facility]) eGFR 123.6 >60.0 mL/min/1. 73m*2 11/01/2024 10:50 AM [facility] ([facility]) Comment:[facility] s estimated glomerular filtration rate (eGFR) [...] individuals. BUN/Creatinine Ratio 17.0 10/16 10:50 AM [facility] ([facility]) Blood Venous blood specimen / Unknown Existing Catheter / Unknown 11/01/2024 10:10 AM EDT 11/01/2024 10:25 AM EDT us Ky Ritter MD LAB BLOOD ORDERABLES Final Re sult [facility] ([facility]) [address] [place] [address] * (ABNORMAL) CBC (11/01/2024 10:10 AM EDT) Auto WBC 4.80 4.00 - 10.60 10*3/uL 11/01/2024 10:40 AM EDT [facility] ([facility]) RBC 3.87 3.80 - 5.00 10*6/uL 11/01/2024 10:40 AM EDT [facility] ([facility]) Hemoglobin 11.3(L) 12.0 - 15.0 g/dL 11/01/2024 10:40 AM EDT [facility] ([facility]) Hematocrit 34.6(L) 36.0 - 45.0 % 11/01/2024 10:40 AM EDT [facility] ([facility]) MCV 89.4 82.0 - 98.0 fL 11/01/2024 10:40 AM EDT [facility] ([facility]) MCH 29.2 27.0 - 33.0 pg 11/01/2024 10:40 AM EDT [facility] ([facility]) MCHC 32.7 32.0 - 35.0 g/dL 11/01/2024 10:40 AM EDT [facility] ([facility]) RDW 13.2 11.5 - 15.0 % 11/01/2024 10:40 AM EDT [facility] ([facility]) Platelets 300 150 - 400 10*3/uL 11/01/2024 10:40 AM EDT [facility] ([facility]) Blood Venous blood specimen / Unknown Existing Catheter / Unknown 11/01/2024 10:10 AM EDT 11/01/2024 10:25 AM EDT Ky Ritter MD LAB BLOOD ORDERABLES Final Re sult [facility] ([facility]) [address] [place] [address] * (ABNORMAL) POCT glucose meter (11/01/2024 7:43 AM EDT) Glucose POC 162(H) 70 - 105 mg/dL 11/01/2024 7:55 AM EDT [facility] ([facility]) Comment:[email or web address] Blood Capillary blood specimen / Unknown 11/01/2024 7:43 AM EDT 11/01/2024 7:55 AM EDT Narrative [facility] ([facility]) - 11/01/2024 7:55 AM EDT Waived Testing in the ED is performed under the ED CLIA certificate #[id number]. Ky Ritter MD LAB BLOOD ORDERABLES Final Re sult Performing Organization Address [facility]/ZIP Co de Phone Number [facility] ([facility]) [address] [place] [address] * (ABNORMAL) High Sensitivity Troponin I (11/01/2024 6:42 AM EDT) [facility] High Sensitivity Troponin I 19(H) <15 ng/L 11/01/2024 7:02 AM EDT [facility] ([facility]) Blood Venous blood specimen / Unknown Existing Catheter / Unknown 11/01/2024 6:42 AM EDT 11/01/2024 6:42 AM EDT Debbie Luna CNP LAB BLOOD ORDERABLES Final Resu lt [facility] ([facility]) [address] [place] [address] * (ABNORMAL) Anti-Xa (Heparin Level) (11/01/2024 6:04 AM EDT) [facility] Anti-Xa (Heparin) 0.27(L) 0.3 - 0.7 IU/mL 11/01/2024 6:37 AM EDT [facility] ([facility]) Comment:Rivaroxaban and Apix aban will interfere with the anti Xa assay used to monitor UFH and LMWH. Blood Blood sample taken from central line / Unknown Existing Catheter / Unknown 11/01/2024 6:04 AM EDT 11/01/2024 6:15 AM EDT Ky Ritter MD LAB BLOOD ORDERABLES Final Re sult [facility]) [address] [place] [address] * (ABNORMAL) POCT glucose meter (11/01/2024 6:02 AM EDT) [facility] Glucose POC 114(H) 70 - 105 mg/dL 11/01/2024 6:13 AM EDT [facility] ([facility]) Comment:[email or web address] Blood Capillary blood specimen / Unknown 11/01/2024 6:02 AM EDT 11/01/2024 6:13 AM EDT Narrative [facility] ([facility]) - 11/01/2024 6:13 AM EDT Waived Testing in the ED is performed under the ED CLIA certificate #[id number]. yK Ritter MD LAB BLOOD ORDERABLES Final Re sult [facility] ([facility]) [address] [place] [address] * (ABNORMAL) Toxicology Screen, Urine (11/01/2024 2:12 AM EDT) [facility] Barbiturates Negative Negative 11/01/2024 2:57 AM EDT [facility] ([facility]) Benzodiazepines Positive(A) Negative 11/02/19 25 2:57 AM EDT [facility] ([facility]) Propoxyphene Negative Negative 11/01/2024 2:57 AM EDT [facility] ([facility]) Methadone Negative Negative 11/01/2024 2:57 AM EDT [facility] ([facility]) Tricyclics Negative Negative 11/01/2024 2:57 AM EDT [facility] ([facility]) Phencyclidine Negative Negative 11/01/2024 2:57 AM EDT [facility] ([facility]) Opiates Positive(A) Negative 11/01/2024 2:57 AM EDT [facility] ([facility]) Cocaine Negative Negative 11/01/2024 2:57 AM EDT [facility] ([facility]) Amphetamines/Metha mphetamine Negative Negative 11/01/2024 2:57 AM EDT [facility] ([facility]) Cannabinoid Negative Negative 11/01/2024 2:57 AM EDT [facility] ([facility]) Urine Urine specimen obtained by clean catch procedure / Unknown Non-blood Collection / Unknown 11/01/2024 2:12 AM EDT 11/01/2024 2:18 AM EDT [facility] ([facility]) - 11/01/2024 2:57 AM EDT Unconfirmed screening results should only be used for medical purposes. Ky Ritter MD LAB URINE ORDERABLES Final Re sult [facility] ([facility]) [address] [place] [address] * POCT glucose meter (10/31/2024 8:20 PM EDT) [facility] Glucose POC 90 70 - 105 mg/dL 10/31/2024 8:33 PM EDT [facility] ([facility]) Comment:[email or web address] Blood Capillary blood specimen / Unknown 10/31/2024 8:20 PM EDT 10/31/2024 8:33 PM EDT [facility] ([facility]) - 10/31/2024 8:33 PM EDT Waived Testing in the ED is performed under the ED CLIA certificate #[id number]. us Ky Ritter MD LAB BLOOD ORDERABLES Final Re sult [facility]) [address] [place] [address] * CORONARY ANGIOGRAPHY, LEFT HEART CATH (10/31/2024 [...] informed consent. she was brought to the cath lab technologist in a fasting state. The left wrist area was prepped and draped in usual fashion. Micropuncture technique was used for access in the radial artery. A 5-Guyanese x 11 cm sheath was placed. Verapamil was given through the sheath, and heparin was administered intravenously. A 5 Guyanese JR4 diagnostic catheter was advanced and this [...] catheter was then downsized to a 4 Guyanese JR4 diagnostic catheter however this also was not able to engage the right coronary artery. Catheter was exchanged to a JR4 diagnostic catheter which could not engage the left coronary artery. Catheter was exchanged to a 4 Guyanese JL 3.5 diagnostic catheter which eventually was able to engage the left coronary artery. Angiography was performed in multiple views. Catheter was exchanged over the wire to a 4 Guyanese 3DRC catheter. Multiple attempts were made to [...] Study Details NSTEMI (non-ST elevated myocardial infarction) ([facility]) [I21.4] us Ky Ritter MD CV CARDIAC CATH PROCEDURES Fi nal Result * POCT glucose meter (10/31/2024 11:55 AM EDT) Glucose POC 82 70 - 105 mg/dL 10/31/2024 12:06 PM EDT [facility] ([facility]) Comment:[email or web address] Blood Capillary blood specimen / Unknown 10/31/2024 11:55 AM EDT 10/31/2024 12:06 PM EDT Narrative [facility] ([facility]) - 10/31/2024 12:06 PM EDT Waived Testing in the ED is performed under the ED CLIA certificate #[id number]. us Ky Ritter MD LAB BLOOD ORDERABLES Final Re sult [facility] ([facility]) [address] [place] [address] * LIMITED ECHO (TTE) W/ COLOR FLOW AND IMAGING AGENT (10/31/2024 11:40 AM EDT) Anatomical Region Laterality Modality Other 10/31/2024 11:1 6 AM EDT Narrative 10/31/2024 12:44 PM EDT 1 1 [facility] Heart Station [address] [place] [address] [phone] (fax) Echocardiogram-[facility] Name: JUAN KONG Study Date: 10/31/2024 11:16 AM B/P: 106 mmHg/67 mmHg HR: 70 bpm Date of : 1990 Location: [facility] Height: 66 in. Age: 34 year(s) Patient [...] minimal pericardial effusion. Procedure Staff Reading Group: [facility] Assistant: DAVID Kearney, RDCS Ordering Physician: KY RITTER Wall Motion Scores -1 - hyperkinesia, 0 - not evaluated, 1 - normal, 2 - hypokinesia, 3 - akinesia, 4 - dyskinesia Procedure Note Mitul Moya MD - 10/31/2024 1 1 [facility] Heart Station [address] [place] [address] [phone] (fax) Echocardiogram-[facility] Name: JUAN KONG Study Date: 10/31/2024 11:16 AM B/P: 106 mmHg/67 mmHg HR: 70 bpm Date of : 1990 Location: [facility] Height: 66 in. Age: 34 year(s) Patient Room: [facility] Weight: 181 lb. Gender: Female Patient [...] minimal pericardial effusion. Procedure Staff Reading Group: [facility] Assistant: DAVID Kearney, RDCS Ordering Physician: KY RITTER Wall Motion Scores -1 - hyperkinesia, 0 - not evaluated, 1 - normal, 2 - hypokinesia, 3 - akinesia, 4 - dyskinesia us Ky Ritter MD CV ECHO PROCEDURES Final Resu lt * ECG 12 lead (10/31/2024 8:47 AM EDT) Ventricular Rate 69 BPM GE MUSE Atrial Rate 69 BPM GE MUSE HI Interval 146 ms GE MUSE QRS DURATION 86 ms GE MUSE QT Interval 460 ms GE MUSE QTC CALCULATION(BAZE TT) 492 ms GE MUSE P [employer] 56 degrees GE MUSE R-[employer] 55 degrees GE MUSE T [employer] 71 degrees GE MUSE 10/31/2024 8:43 AM [...] MUSE Atrial Rate 70 BPM GE MUSE HI Interval 148 ms GE MUSE QRS DURATION 86 ms GE MUSE QT Interval 460 ms GE MUSE QTC CALCULATION(BAZE TT) 496 ms GE MUSE P [employer] 61 degrees GE MUSE R-[employer] 59 degrees GE MUSE T [employer] 77 degrees GE MUSE 10/31/2024 8:15 AM [...] - 105 mg/dL 10/31/2024 7:33 AM EDT [facility] ([facility]) Comment:[email or web address] Blood Capillary blood specimen / Unknown 10/31/2024 7:22 AM EDT 10/31/2024 7:33 AM EDT Narrative [facility] ([facility]) - 10/31/2024 7:33 AM EDT Waived Testing in the ED is performed under the ED CLIA certificate #[id number]. us Ky Ritter MD LAB BLOOD ORDERABLES Final Re sult Performing Organization Address City/[facility]/ZIP Co de Phone Number [facility] ([facility]) [address] [place] [address] * Hemoglobin A1c (10/31/2024 6:27 AM EDT) Hemoglobin A1C 4.5 4.0 - 6.0 % 10/31/2024 1:13 PM EDT [facility] ([facility]) Estimated Average Glucose 82 mg/dL 10/31/2024 1:13 PM EDT [facility] ([facility]) Blood Blood sample taken from central line / Unknown Existing Catheter / Unknown 10/31/2024 6:27 AM EDT 10/31/2024 7:01 AM EDT Ky Ritter MD LAB BLOOD ORDERABLES Final Re sult [facility] ([facility]) [address] [place] [address] * (ABNORMAL) Lipid panel (10/31/2024 6:27 AM EDT) Triglycerides 84 <150 mg/dL 10/31/2024 9:31 AM EDT [facility] ([facility]) Comment: TRIGLYCERIDE REFERENCE RANGE: 20 YEARS AND OLDER CARDIOVASCULAR RISK LESS THAN 150 mg/dL LOW RISK 150 TO 199 mg/dL BORDERLINE RISK 200 mg/dL AND GREATER HIGH RISK Cholesterol 116(L) 120 - 200 mg/dL 10/31/2024 9:31 AM EDT [facility] ([facility]) LDL Calculated 56 0 - 160 mg/dL 10/31/2024 9:31 AM EDT [facility] ([facility]) HDL 43 23 - 92 mg/dL 10/31/2024 9:31 AM EDT [facility] ([facility]) Non HDL Cholesterol 73 10/31/2024 9:31 AM EDT [facility] ([facility]) Total VLDL-C 17 0 - 40 mg/dL 10/31/2024 9:31 AM EDT [facility] ([facility]) Cholesterol/HDL Ratio 2.7 mg/dL 10/31/2024 9:31 AM EDT [facility]) Blood Blood sample taken from central line / Unknown Existing Catheter / Unknown 10/31/2024 6:27 AM EDT 10/31/2024 7:11 AM EDT Ky Ritter MD LAB BLOOD ORDERABLES Final Re sult [facility] ([facility]) [address] [place] [address] * (ABNORMAL) Magnesium (10/31/2024 6:27 AM EDT) Magnesium 1.8(L) 1.9 - 2.7 mg/dL 10/31/2024 8:29 AM EDT [facility] ([facility]) Blood Blood sample taken from central line / Unknown Existing Catheter / Unknown 10/31/2024 6:27 AM EDT 10/31/2024 7:11 AM EDT us Ky Ritter MD LAB BLOOD ORDERABLES Final Re sult Performing Organization Address City/[facility]/ZIP Co de Phone Number [facility] ([facility]) [address] [place] [address] * Anti-Xa (Heparin Level) (10/31/2024 6:27 AM EDT) Pathologist [facility] Anti-Xa (Heparin) 0.53 0.3 - 0.7 IU/mL 10/31/2024 7:27 AM EDT [facility] ([facility]) Comment:Rivaroxaban and Apix aban will interfere with the anti Xa assay used to monitor UFH and LMWH. Blood Blood sample taken from central line / Unknown Existing Catheter / Unknown 10/31/2024 6:27 AM EDT 10/31/2024 6:41 AM EDT Sandeep Casey MD LAB BLOOD ORDERABLES Final Resul t Performing Organization Address [facility] Co de Phone Number [facility] ([facility]) [address] [place] [address] * (ABNORMAL) CBC (10/31/2024 6:27 AM EDT) Auto WBC 3.65(L) 4.00 - 10.60 10*3/uL 10/31/2024 7:19 AM EDT [facility] ([facility]) RBC 3.21(L) 3.80 - 5.00 10*6/uL 10/31/2024 7:19 AM EDT [facility] ([facility]) Hemoglobin 9.4(L) 12.0 - 15.0 g/dL 10/31/2024 7:19 AM EDT [facility] ([facility]) Hematocrit 29.2(L) 36.0 - 45.0 % 10/31/2024 7:19 AM EDT [facility] ([facility]) MCV 91.0 82.0 - 98.0 fL 10/31/2024 7:19 AM EDT [facility] ([facility]) MCH 29.3 27.0 - 33.0 pg 10/31/2024 7:19 AM EDT [facility] ([facility]) MCHC 32.2 32.0 - 35.0 g/dL 10/31/2024 7:19 AM EDT [facility] ([facility]) RDW 13.3 11.5 - 15.0 % 10/31/2024 7:19 AM EDT [facility] ([facility]) Platelets 235 150 - 400 10*3/uL 10/31/2024 7:19 AM EDT [facility] ([facility]) Blood Blood sample taken from central line / Unknown Existing Catheter / Unknown 10/31/2024 6:27 AM EDT 10/31/2024 7:01 AM EDT us Debbie Cheryl [facility] BLOOD ORDERABLES Final Resu lt [facility] ([facility]) [address] [place] [address] * (ABNORMAL) Basic metabolic panel (10/31/2024 6:27 AM EDT) Sodium 140 136 - 145 mmol/L 10/31/2024 7:52 AM EDT [facility] ([facility]) Potassium 4.0 3.5 - 5.1 mmol/L 10/31/2024 7:52 AM EDT [facility] ([facility]) Chloride 110(H) 98 - 107 mmol/L 10/31/2024 7:52 AM EDT [facility] ([facility]) CO2 26 21 - 31 mmol/L 10/31/2024 7:52 AM EDT [facility] ([facility]) BUN 5(L) 7 - 25 mg/dL 10/31/2024 7:52 AM EDT [facility] ([facility]) Creatinine 0.60 0.60 - 1.20 mg/dL 10/31/2024 7:52 AM EDT [facility] ([facility]) Glucose 83 70 - 100 mg/dL 10/31/2024 7:52 AM EDT [facility] ([facility]) Calcium 7.7(L) 8.6 - 10.3 mg/dL 10/31/2024 7:52 AM EDT [facility] ([facility]) Anion Gap 8 7 - 20 mmol/L 10/31/2024 7:52 AM EDT [facility] ([facility]) eGFR 120.0 >60.0 mL/min/1. 73m*2 10/31/2024 7:52 AM EDT [facility] ([facility]) Comment:[facility] s estimated glomerular filtration rate (eGFR) [...] BUN/Creatinine Ratio 8.3 10/16 7:52 AM EDT [facility] ([facility]) Blood Blood sample taken from central line / Unknown Existing Catheter / Unknown 10/31/2024 6:27 AM EDT 10/31/2024 7:11 AM EDT Debbie Cheryl [facility] BLOOD ORDERABLES Final Resu lt [facility] ([facility]) [address] [place] [address] * (ABNORMAL) High Sensitivity Troponin I (10/31/2024 6:27 AM EDT) High Sensitivity Troponin I 61(HH) <15 ng/L 10/31/2024 7:58 AM EDT [facility] ([facility]) Blood Blood sample taken from central line / Unknown Existing Catheter / Unknown 10/31/2024 6:27 AM EDT 10/31/2024 7:11 AM EDT Debbie Mahmoodcarlee [facility] BLOOD ORDERABLES Final Resu lt [facility]) [address] [place] [address] * Anti-Xa (Heparin Level) (10/31/2024 1:38 AM EDT) Pathologist [facility] Anti-Xa (Heparin) 0.47 0.3 - 0.7 IU/mL 10/31/2024 2:03 AM EDT [facility] ([facility]) Comment:Rivaroxaban and Apix aban will interfere with the anti Xa assay used to monitor UFH and LMWH. Blood Venous blood specimen / Unknown Existing Catheter / Unknown 10/31/2024 1:38 AM EDT 10/31/2024 1:42 AM EDT Sandeep Casey MD LAB BLOOD ORDERABLES Final Resul t Performing Organization Address [facility]/ZIP Co de Phone Number [facility]) [address] [place] [address] * (ABNORMAL) High Sensitivity Troponin I (10/31/2024 1:38 AM EDT) [facility] High Sensitivity Troponin I 129(HH) <15 ng/L 10/31/2024 2:33 AM EDT [facility] ([facility]) Blood Blood sample taken from central line / Unknown Existing Catheter / Unknown 10/31/2024 1:38 AM EDT 10/31/2024 1:44 AM EDT Debbie Luna [facility] BLOOD ORDERABLES Final Resu lt [facility] ([facility]) [address] [place] [address] * POCT glucose meter (10/30/2024 9:12 PM EDT) Glucose POC 97 70 - 105 mg/dL 10/30/2024 9:23 PM EDT [facility] ([facility]) Comment:[email or web address] Blood Capillary blood specimen / Unknown 10/30/2024 9:12 PM EDT 10/30/2024 9:23 PM EDT Narrative [facility] ([facility]) - 10/30/2024 9:23 PM EDT Waived Testing in the ED is performed under the ED CLIA certificate #[id number]. us Sandeep Casey MD LAB BLOOD ORDERABLES Final Resul t [facility] ([facility]) [address] [place] [address] * ECG 12 lead (10/30/2024 8:00 PM EDT) Ventricular Rate 83 BPM GE MUSE Atrial Rate 83 BPM GE MUSE HI Interval 144 ms GE MUSE QRS DURATION 88 ms GE MUSE QT Interval 410 ms GE MUSE QTC CALCULATION(BAZE TT) 482 ms GE MUSE P [employer] 62 degrees GE MUSE R-[employer] 19 degrees GE MUSE T [employer] 56 degrees GE MUSE 10/30/2024 7:48 PM [...] Griffin Diaz (102) on 10/31/2024 9:14:03 PM us Debbie Luna CNP ECG ORDERABLES Final Result GE MUSE * (ABNORMAL) Anti-Xa (Heparin Level) (10/30/2024 7:11 PM EDT) Pathologist [facility] Anti-Xa (Heparin) <0.10(LL) 0.3 - 0.7 IU/mL 10/30/2024 8:27 PM EDT [facility] ([facility]) Comment:Rivaroxaban and Apix aban will interfere with the anti Xa assay used to monitor UFH and LMWH. Blood Venous blood specimen / Unknown Existing Catheter / Unknown 10/30/2024 7:11 PM EDT 10/30/2024 7:18 PM EDT Sandeep Casey MD LAB BLOOD ORDERABLES Final Resul t Performing Organization Address [facility] Co de Phone Number [facility]) [address] [place] [address] * (ABNORMAL) aPTT - baseline (10/30/2024 7:11 PM EDT) [facility] aPTT 42.0(H) 25.0 - 35.0 Seconds 10/30/2024 7:48 PM EDT [facility] ([facility]) Comment:Clinical significanc e of the APTT is questionable in the presence of heparin. Blood Venous blood specimen / Unknown Existing Catheter / Unknown 10/30/2024 7:11 PM EDT 10/30/2024 7:18 PM EDT Debbie Luna CNP LAB BLOOD ORDERABLES Final Resu lt Performing Organization Address City/[facility]/ZIP Co de Phone Number [facility] ([facility]) [address] [place] [address] * TSH3 Reflex to FT4 (10/30/2024 7:11 PM EDT) Pathologist [facility] TSH 3.46 0.34 - 5.60 mIU/L 10/30/2024 8:01 PM EDT [facility] ([facility]) Blood Venous blood specimen / Unknown Existing Catheter / Unknown 10/30/2024 7:11 PM EDT 10/30/2024 7:18 PM EDT us Debbie Luna [facility] BLOOD ORDERABLES Final Resu lt [facility] ([facility]) [address] [place] [address] * (ABNORMAL) CBC auto differential (10/30/2024 7:11 PM EDT) Auto WBC 4.32 4.00 - 10.60 10*3/uL 10/30/2024 7:51 PM EDT [facility] ([facility]) RBC 3.30(L) 3.80 - 5.00 10*6/uL 10/30/2024 7:51 PM EDT [facility] ([facility]) Hemoglobin 9.7(L) 12.0 - 15.0 g/dL 10/30/2024 7:51 PM EDT [facility] ([facility]) Hematocrit 29.6(L) 36.0 - 45.0 % 10/30/2024 7:51 PM EDT [facility] ([facility]) MCV 89.7 82.0 - 98.0 fL 10/30/2024 7:51 PM EDT [facility] ([facility]) MCH 29.4 27.0 - 33.0 pg 10/30/2024 7:51 PM EDT [facility] ([facility]) MCHC 32.8 32.0 - 35.0 g/dL 10/30/2024 7:51 PM EDT [facility] ([facility]) RDW 13.4 11.5 - 15.0 % 10/30/2024 7:51 PM EDT [facility] ([facility]) Neutrophils % 44.2 40.0 - 72.0 % 10/30/2024 7:51 PM EDT [facility] ([facility]) Lymphocytes % 44.9 20.0 - 45.0 % 10/30/2024 7:51 PM EDT [facility] ([facility]) Monocytes % 7.9 5.0 - 12.0 % 10/30/2024 7:51 PM EDT [facility] ([facility]) Eosinophils % 2.1 0.0 - 6.0 % 10/30/2024 7:51 PM EDT [facility] ([facility]) Basophils % 0.9 0.0 - 1.0 % 10/30/2024 7:51 PM EDT [facility] ([facility]) Neutrophils Absolute 1.91 1.60 - 7.60 10*3/uL 10/30/2024 7:51 PM EDT [facility] ([facility]) Lymphocytes Absolute 1.94 1.20 - 4.00 10*3/uL 10/30/2024 7:51 PM EDT [facility] ([facility]) Monocytes Absolute 0.34 0.10 - 1.00 10*3/uL 10/30/2024 7:51 PM EDT [facility] ([facility]) Eosinophils Absolute 0.09 0.00 - 0.50 10*3/uL 10/30/2024 7:51 PM EDT [facility] ([facility]) Basophils Absolute 0.04 0.00 - 0.20 10*3/uL 10/30/2024 7:51 PM EDT [facility] ([facility]) Platelets 272 150 - 400 10*3/uL 10/30/2024 7:51 PM EDT [facility] ([facility]) nRBC % 0.0 0 % 10/30/2024 7:51 PM EDT [facility] ([facility]) Immature Granulocytes % 0.0 0.0 - 1.0 % 10/30/2024 7:51 PM EDT [facility] ([facility]) Immature Granulocytes Absolute 0.00 0.00 - 0.20 10*3/uL 10/30/2024 7:51 PM EDT [facility] ([facility]) Blood Venous blood specimen / Unknown Existing Catheter / Unknown 10/30/2024 7:11 PM EDT 10/30/2024 7:18 PM EDT us Debbie Luna [facility] BLOOD ORDERABLES Final Resu lt [facility] ([facility]) [address] [place] [address] * B-type natriuretic peptide (10/30/2024 7:11 PM EDT) BNP 77 0 - 100 pg/mL 10/30/2024 7:49 PM EDT [facility] ([facility]) Blood Venous blood specimen / Unknown Existing Catheter / Unknown 10/30/2024 7:11 PM EDT 10/30/2024 7:18 PM EDT Debbie Luna [facility] BLOOD ORDERABLES Final Resu lt [facility] ([facility]) [address] [place] [address] * (ABNORMAL) Protime-INR (10/30/2024 7:11 PM EDT) Protime 14.8 12.3 - 14.8 Seconds 10/30/2024 7:47 PM EDT [facility] ([facility]) INR 1.15(H) 0.90 - 1.10 10/30/2024 7:47 PM EDT [facility] ([facility]) Comment: [facility] RECOMMENDED INR FOR WARFARIN THERAPY [...] 7:11 PM EDT 10/30/2024 7:18 PM EDT [facility] B[facility]OD ORDERABLES Final Resu lt [facility] ([facility]) [address] [place], [place] [id number] * Phosphorus (10/30/2024 7:11 PM EDT) Pathologist [facility] Phosphorus 4.4 2.5 - 5.0 mg/dL 10/30/2024 7:46 PM EDT [facility] ([facility]) Blood Venous blood specimen / Unknown Existing Catheter / Unknown 10/30/2024 7:11 PM EDT 10/30/2024 7:18 PM EDT [facility] BLOOD ORDERABLES Final Resu lt Performing Organization Address City/[facility]/ZIP Co de Phone Number [facility] ([facility]) [address] [place] [address] * (ABNORMAL) HIGH SENSITIVITY TROPONIN I (10/30/2024 7:11 PM EDT) [facility] High Sensitivity Troponin I 337(HH) <15 ng/L 10/30/2024 7:53 PM EDT [facility]) Blood Venous blood specimen / Unknown Existing Catheter / Unknown 10/30/2024 7:11 PM EDT 10/30/2024 7:18 PM EDT [facility] BLOOD ORDERABLES Final Resu lt [facility] ([facility]) [address] [place] [address] * (ABNORMAL) Magnesium (10/30/2024 7:11 PM EDT) Pathologist [facility] Magnesium 1.7(L) 1.9 - 2.7 mg/dL 10/30/2024 7:46 PM EDT [facility] ([facility]) Blood Venous blood specimen / Unknown Existing Catheter / Unknown 10/30/2024 7:11 PM EDT 10/30/2024 7:18 PM EDT us Debbie Luna [facility] BLOOD ORDERABLES Final Resu lt [facility] ([facility]) [address] [place] [address] * (ABNORMAL) Comprehensive metabolic panel (10/30/2024 7:11 PM EDT) Sodium 139 136 - 145 mmol/L 10/30/2024 7:46 PM EDT [facility] ([facility]) Potassium 3.7 3.5 - 5.1 mmol/L 10/30/2024 7:46 PM EDT [facility] ([facility]) Chloride 110(H) 98 - 107 mmol/L 10/30/2024 7:46 PM EDT [facility] ([facility]) CO2 23 21 - 31 mmol/L 10/30/2024 7:46 PM EDT [facility] ([facility]) Anion Gap 10 7 - 20 mmol/L 10/30/2024 7:46 PM EDT [facility] ([facility]) BUN 5(L) 7 - 25 mg/dL 10/30/2024 7:46 PM EDT [facility] ([facility]) Creatinine 0.64 0.60 - 1.20 mg/dL 10/30/2024 7:46 PM EDT [facility] ([facility]) BUN/Creatinine Ratio 7.8 10/16 7:46 PM EDT [facility] ([facility]) Glucose 101(H) 70 - 100 mg/dL 10/30/2024 7:46 PM EDT [facility] ([facility]) Calcium 7.8(L) 8.6 - 10.3 mg/dL 10/30/2024 7:46 PM EDT [facility] ([facility]) AST 19 13 - 39 U/L 10/30/2024 7:46 PM EDT [facility] FACILITY LAB ([facility]) ALT (SGPT) 7 7 - 52 U/L 10/30/2024 7:46 PM EDT [facility] ([facility]) Alkaline Phosphatase 45 34 - 104 U/L 10/30/2024 7:46 PM EDT [facility] ([facility]) Total Protein 5.0(L) 6.0 - 8.3 g/dL 10/30/2024 7:46 PM EDT [facility] ([facility]) Albumin 3.2(L) 3.5 - 5.7 g/dL 10/30/2024 7:46 PM EDT [facility] ([facility]) Total Bilirubin 0.2(L) 0.3 - 1.0 mg/dL 10/30/2024 7:46 PM EDT [facility] ([facility]) eGFR 118.1 >60.0 mL/min/1. 73m*2 10/30/2024 7:46 PM EDT [facility] ([facility]) Comment:[facility] s estimated glomerular filtration rate (eGFR) [...] 10/30/2024 7:18 PM EDT us Debbie Mahmoodcarlee [facility] BLOOD ORDERABLES Final Resu lt [facility] ([facility]) [address] [place] [address] documented in this encounter Visit Diagnoses Not on filedocumented in this encounter Admitting Diagnoses Diagnosis Chest [...] 11/05/2024 5:39 PM EDT 1 patch Other gelatin adsorbable (Gelfoam) 100 cm sponge As needed, Starting on Wed11/02/24 at 2100, Intraprocedure Given 11/02/2024 9:00 PM EDT 1 each glucose chewable tablet 24 g 24 g, [...] IV fluids or tube feeding bolus) HYDROcodone-acetaminophen (Coxsackie) 5-325 mg per tablet 1 tablet 1 tablet, oral, Every 4 hours PRN, moderate pain (4-7 pain score), Starting on Wed11/02/24 at 1331, For 96 days Given 11/03/2024 10:11 AM EDT 1 tablet HYDROcodone-acetaminophen (Coxsackie) 5-325 mg per tablet 2 tablet 2 [...] BG greater than 400 instructions: Call Physician levothyroxine (Synthroid, Levoxyl) tablet 75 mcg 75 [...] 10:02 PM EDT 1 tablet sodium chloride flush 10 mL 10 mL, intravenous, Every 8 hours PRN, line care, Starting on Wed10/30/24 at 1913, For 99 days sodium chloride irrigation solution 0.9 % As needed, Starting on Wed11/02/24 at 2122, Intraprocedure Given 11/02/2024 9:22 PM EDT 1,000 mL sucralfate (Carafate) tablet 1 g 1 g, [...] Given 11/07/2024 6:08 AM EDT 1 g thrombin syringe As needed, Starting on Heena 11/02/24 at 2100, Intraprocedure Given 11/02/2024 9:00 PM EDT 5,000 Units Operative Site topiramate (Topamax) tablet 100 mg 100 mg, [...] on 11/04/24 at 1400, For 99 days Given 11/07/2024 [...] two hours) 2106 (Given - Provider: Christine Baker, DEE) clopidogrel [...] Fang Oreilly RN)2106 (Given - Provider: Christine Baker, DEE) 0855 (Given - Provider: Patricia Butt [...] Radha Godoy RN)1634 (Given - Provider: Joanna French, DEE) 0601 (Given - Provider: Radha Godoy RN)1704 (Given - Provider: Patricia Butt, RN) 0608 (Given - Provider: Christine Baker RN)1700 (Given - Provider: Patricia Butt RN) polyethylene glycol (Glycolax) packet 17 g 17 g, oral, Daily, First dose on Wed11/06/24 at 1600, For 99 days 1704 (Given - Provider: Patricia Butt RN) 0855 (Given - Provider: Patricia Butt, [...] Godoy RN)1355 (Given - Provider: Joanna French, DEE)2336 (Given [...] French RN)1200 (Rate/Dose Verify - Provider: Joanna French, RN)1300 (Rate/Dose Verify - Provider: Joanna French, RN)1440 (Stopped - Provider: Joanna French RN) Adult Cyclic 3-in-1 TPN 2,300 mL, intravenous, Administer over 16 Hours, Cyclic TPN, Starting on 11/06/24 at 2200, For 24 hours, NOTE: 158.5 ml/hr x 13 hr ---->79.8 ml/hr last 3 hrs Use a 1.2 micron filter.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 215 (New Bag - Provider: Christine Baker RN) [...] Oreilly RN)1704 (Given - Provider: Patricia Butt, RN) [...] IV fluids or tube feeding bolus) HYDROcodone-acetaminophen (Coxsackie) 5-325 mg per tablet 1 tablet(Linked Group 4) 1 tablet, oral, Every 4 hours PRN, moderate pain (4-7 pain score), Starting on Wed11/02/24 at 1331, For 96 days 0401 (See Alternative - Provider: Radha Godoy RN)1138 (See Alternative - Provider: Joanna French RN)1604 (See Alternative - Provider: Joanna French, RN) 0553 (See Alternative - Provider: Radha Godoy RN)0932 (See Alternative - Provider: Fang Oreilly RN)1300 (See Alternative - Provider: Fang Oreilly RN) 0909 (See Alternative - Provider: Patricia Butt RN)1449 (See Alternative - Provider: Patricia Butt, RN) HYDROcodone-acetaminophen (Coxsackie) 5-325 mg per tablet 2 tablet(Linked Group 4) 2 tablet, oral, Every 4 hours PRN, severe pain (8-10 pain score), Starting on Wed11/02/24 at 1331, For 96 days 0401 (Given - Provider: Radha Godoy RN)1138 (Given - Provider: Joanna French RN)1604 (Given - Provider: Joanna French RN) 0553 (Given - Provider: Radha Godoy RN)0932 (Given - Provider: Fang Oreilly, RN)1300 (Given - Provider: Fang Oreilly, RN) 0909 (Given - Provider: Patricia Butt, RN)1449 (Given - Provider: Patricia Butt RN) [...] or tube feeding bolus) Group 4: HYDROcodone-acetaminophen (Coxsackie) 5-325 mg per tablet 1 tabletJump to med 1 tablet, oral, Every 4 hours PRN, moderate pain (4-7 pain score), Starting on Heena 11/02/24 at 1331, For 96 days Or HYDROcodone-acetaminophen (Coxsackie) 5-325 mg per tablet 2 tabletJump to med 2 tablet, oral, Every 4 hours PRN, severe pain (8-10 pain score), Starting on Heena 11/02/24 at 1331, For 96 days Group 5: Insert peripheral IV (CANCELED) Once, On Wed10/30/24 at 191, For 1 occurrence And Saline lock IV (CANCELED) Once, On Wed10/30/24 at 191, For 1 occurrence And sodium chloride flush 10 mLJump to med 10 mL, intravenous, Every 8 hours PRN, line care, Starting on Wed10/30/24 at 191, For 99 days documented in this encounter Care Teams Milk Runner Relationship Specialty Start Date End Date Thomas Alas MD [address] [facility] [address] [address] PCP - General Family Medicine 08/17/24 documented as of this encounter
--- OUTSIDE RECORDS SUMMARY | 2024-11-03 10:15 | XMS_ITS ---
[facility] Organization [facility] Address [address] [place] [address] Care Team Providers Care Beauty Culturist Name Role Phone Ashley Bryson Primary Care Provider [phone] Christina Dominguez Unavailable REASON FOR VISIT DEBRIDEMENT Encounters Encounter Location Date Provider Diagnosis [facility] [address] [place] [address] 11/03/2024 Christina Dominguez Plan Of Treatment No Information Progress Notes * JUAN KONG MDOB:1990 (34 yo F)Acc No.[id number]:11/03/2024 Patient: Jarrod COVARRUBIAS JUAN M Provider: Lesia Dominguez :1990 A ge:34 Y S ex:Female Date:11/03/2024 Address:[address] [place], [place] [phone] Pcp:Ashley Bryson Subjective: * Chief Complaints: * 1 . DEBRIDEMENT. * Medical History: Objective: * Vitals: Assessment: Plan: * Treatment: * Images: * Electronic signature of Jared Dominguez on 11/14/2024 at 08:51 AM EDT Sign off status: Pending * Provider: Lesia Dominguez Date: 0 11/03/2024 Generated for Hailey jordan/Ari/eTransmitting on: 11/14/2024 08:51 AM EDT
--- OUTSIDE RECORDS SUMMARY | 2024-11-09 10:47 | XMS_ITS | Encounter Summary ---
Author Organization [facility] Address [address] [place] [address] Care Team Providers Care Waste Management Recycling Technician Name Role Phone Thomas Calix MD Primary Care Provider [phone] Reason for Referral * (Routine) - Pending Review Specialty Diagnoses / Procedures Referred By Contac t Referred To Contact Procedures ECG 12 lead Marky Tavares MD [address] [place] [address] Phone: tel: fax: Referral ID Status Reason Start Date Expiration Date V isits Requested Visits Authorized [id number] Pending Review 11/12/2024 11/12/2025 1 1 * (Emergency) - Pending Review Specialty Diagnoses / Procedures Referred By Contac t Referred To Contact Procedures ECG 12 lead Marky Tavares MD [address] [place] [address] Phone: tel: fax: Referral ID Status Reason Start Date Expiration Date V isits Requested Visits Authorized [id number] Pending Review 11/11/2024 11/11/2025 1 1 * (Emergency) - Pending Review Specialty Diagnoses / Procedures Referred By Contac t Referred To Contact Procedures ECG 12 lead Marky Tavares MD [address] [place] [address] Phone: tel: fax: Referral ID Status Reason Start Date Expiration Date V isits Requested Visits Authorized [id number] Pending Review 11/10/2024 11/10/2025 1 1 * (Routine) - Pending Review Specialty Diagnoses / Procedures Referred By Contac t Referred To Contact Procedures ECG 12 lead Vicky Cole CNP [address] [place] [address] Phone: tel: fax: Referral ID Status Reason Start Date Expiration Date V isits Requested Visits Authorized [id number] Pending Review 11/10/2024 11/10/2025 1 1 * (Routine) - Pending Review Specialty Diagnoses / Procedures Referred By Contac t Referred To Contact Procedures ECG 12 lead Wali Collins MD [address] [place] [phone] Phone: tel: fax: Referral ID Status Reason Start Date Expiration Date V isits Requested Visits Authorized [id number] Pending Review 11/09/2024 11/09/2025 1 1 Reason for Visit * Auth/Cert (Routine) Specialty Diagnoses / Procedures Referred By Contac t Referred To Contact Diagnoses Chest pain chest pain Procedures NO CODED SERVICES Shanna Lamas DO [address] [place] [address] Phone: tel: fax: [facility] [address] [place] [address] Phone: tel: fax: Referral ID Status Reason Start Date Expiration Date Visits Re quested Visits Authorized [id number] 1 1 Encounter Details Date Type Department Care Team (Late st Contact Info) Description 11/09/2024 10:47 AM EDT - 11/13/2024 2:34 PM EDT Hospital Encounter [facility] [address] [place] [id number] Urbano Santos MD [address] [place] [address] Marky Tavares MD [address] [facility] [place] [address] Shanna Lamas DO [address] [place] [address] Chest pain (Primary Dx); Chronic narcotic use Discharge Disposition: Home-Health Care [facility] [place] (06) Social History Tobacco Use Types Packs/Day Years Used Date Smoking Tobacco: Never Smokeless Tobacco: Never Alcohol Use Standard Drinks/Week Comments Not Currently 0 (1 standard drink = 0.6 oz pur e alcohol) [facility] Utilities Answer Date Recorded In the past 12 months has th [employer] gas, oil, or water [employer] threatened to shut off services in your [...] in a skilled nursing (including now)? No 11/09/2024 Hunger Vital Sign [...] 2:16 PM EDT Fatuma Butt RN * [place] Fall Risk Interventions Question Answer Date of Assessment Author [place] Fall Risk Interventions Complete 025 7:14 AM [...] 7:14 AM EDT Patricia Butt RN Tongue [place];Moist 11/13/2024 7:14 AM EDT Patricia Butt RN Mucous Membrane(s) Moist;[place];Intact 11/13/2024 7:14 A M EDT Patricia Butt RN Teeth Intact 11/13/2024 7:14 AM EDT Patricia Butt RN Head and Face Symmetrical 11/13/2024 7:14 AM EDT Patricia Butt RN Neck Symmetrical 11/13/2024 7:14 AM JUNT Patricia Butt RN Lips Dry;Moist;[place] 11/13/2024 7:14 AM EDT Car rPatricia RN [...] Score 1 11/13/2024 7: 14 AM Patricia Malone RN * Fall Risk Level Question Answer [...] 11/13/2024 7:14 AM EDT Patricia Butt RN Termite Treater Status On 11/13/2024 7:14 AM EDT Patricia [...] Date of Assessment Author Last BM Date [id number] 11/11/2024 8:00 PM EDT Diamond Cardoza RN [...] Answer Date of Assessment Author Peripheral Vascular ([facility]) [facility] 11/13/2024 7:14 AM EDT Patricia Butt RN * Musculoskeletal Question Answer Date of Assessment Author Musculoskeletal ([facility]) [facility] 11/13/2024 7:14 AM EDT Patricia Butt RN * Psychosocial Question Answer Date of Assessment Author Psychosocial ([facility]) [facility] 11/13/2024 7:14 AM EDT Patricia Butt RN [...] Question Answer Date of Assessment Author Cardiac ([facility]) [facility] 11/09/2024 2:01 PM EDT Kimberlee Lara RN Telemetry Yes 11/09/2024 11:00 AM EDT Kimberlee Lara RN * Respiratory Question Answer Date of Assessment Author Respiratory ([facility]) [facility] 11/09/2024 2:01 PM EDT Kimberlee Allen RN [...] During Hospitalization Answer Date of Assessment Author [facility] 11/12/2024 8:30 PM EDT Fausto Cardoza RN * Genitourinary Question Answer Date of Assessment Author Urinary Frequency Adequate 11/13/2024 7:14 AM EDT Patricia Butt RN Female Genitalia Intact 11/13/2024 7:14 AM EDT C Patricia tom RN Genitourinary ([facility]) [facility] 11/13/2024 7:14 AM ED T Patricia Butt RN Urinary Incontinence No 11/13/2024 7:14 AM E DT Patricia Butt RN Suprapubic Tenderness No 11/13/2024 7:14 AM EDT Patricia Butt RN * Neurological Question Answer Date of Assessment Author Neuro ([facility]) [facility] 11/09/2024 2:01 PM EDT Kimberlee Og RN [...] Ford RN Feeding Independent 11/09/2024 12:17 PM Natalie Ford RN Bathing Independent 11/09/2024 12:17 PM [...] Needed No 11/09/2024 12:18 PM Natalie Ford leak hunter Consult Needed No 11/09/2024 12:18 PM EDT Natalie Whitley RN Palliative Care Consult Needed No 11/09/2024 12:18 PM EDT Natalie Whitley RN * Therapy Consults Question Answer Date of Assessment Author PT Evaluation Needed 2 11/09/2024 12:17 PM EDT Natalie Whitley RN OT Evaluation Needed 2 11/09/2024 12:17 PM EDT Natalie Whitley RN ACADEMIC DEPARTMENT CHAIR Evaluation Needed 2 11/09/2024 12:17 PM EDT [...] PM EDT Stacie Keyes RN Notification Time [id number] 11/11/2024 6:3 9 PM EDT Stacie Keyes RN * [place] Fall Risk Interventions Question Answer Date of Assessment Author [place] Fall Risk Interventions Complete 025 7:14 AM EDT Patricia Butt RN * Suicidal Ideation Question Answer Date of Assessment Author 1. Wish to be (Lifetime) No 11/09/2024 12:19 PM EDT Natalie Whitley RN 2. Non-Specific Active Suici martha Thoughts (Lifetime) No 11/09/2024 12:19 PM EDT Natalie Whitley RN * [place] Coma Scale Question Answer Date of Assessment Author Best Eye Response Spontaneous 11/13/2024 7:14 AM EDT Patricia Butt RN Best Verbal Response Oriented 11/13/2024 7:14 AM E Patricia Tabor RN Best Motor Response Follows commands 11/13/2024 7:14 A M Patricia Malone RN [place] Coma Scale Score 15 11/13/2024 7:14 AM [...] who came as a direct admission from [facility] due tochest pain. Patient was hospitalized [...] she was supposed to be going to [facility] for PEG tube placement the next daywith her . As they were getting in the car, she started feeling similar chest pain, sharp shooting in nature, 10 out of 10, radiating to her left shoulder, along with diaphoresis, shortness ofbreath, and does not recall it being exacerbated with taking a deep breath. Patient was then taken to [facility] near [place], and was transferred from there to [facility] for appropriate workup of chest pain and [...] 11/14/2024 3:20 PM Christina Rodriguez CNP [facility] 11/20/2024 2:30 PM Delphine Du NP [facility]AS[facility] 11/27/2024 2:15 PM Santa Wall CNP [facility] Second Fl 12/04/2024 10:00 AM [...] STOP taking these medications ergocalciferol 1.25 MG (61289 Units) capsule Commonly known as: Vitamin D-2 HYDROcodone-acetaminophen 5-325 mg tablet Commonly known as: [place] Where to Get Your Medications These medications were sent to [facility] [address] [place] [address] [facility] [place] [address], [facility] [address] colchicine 0.6 mg tablet naloxone 0.4 mg/mL injection ranolazine 500 mg 12 hr tablet Juan is allergic to codeine, nsaids (non-steroidal anti-inflammatory drug), and adhesive. Disposition: Home-Health Care [facility] [place] () Discharge Condition: Stable Code Status: Full [...] was 32 minutes. Signed Marky Tavares MD [facility] 11/13/2024 10:53 AM CC: MD Evette documented [...] * Fall Prevention in the Home Adult Zwez-wm-Thyf (Macanese) documented in this encounter Medications at Time [...] AM EDT discharge planning: to Home with [address] [facility] resuming [address]; Patient recently discharged with [address] services, waiting to hear back from [address] to confirm if Patient still active on their services [address] confirmed Patient active with them and they can resume; team notified; [id number] added to AVS 1310 AVS sent to [address], via [employer] system * Lisa Pena DO - 11/13/2024 [...] who came as a direct admission from [facility] due to chest pain. Patient was [...] she was supposed to be going to [facility] for PEG tube placement the next daywith her . As they were getting in the car, she started feeling similar chest pain, sharp shooting in nature, 10 out of 10, radiating to her left shoulder, along with diaphoresis, shortness ofbreath, and does not recall it being exacerbated with taking a deep breath. Patient was then taken to [facility] near [place], and was transferred from there to [facility] for appropriate workup of chest pain and [...] Value Ventricular Rate 73 Atrial Rate 73 ND Interval 156 QRS DURATION 88 QT Interval 414 QTC CALCULATION(BAZETT) 456 P [place] 65 R-[place] 46 T Wave [place] 61 Impression Normal sinus rhythm Normal ECG When compared with ECG of 11-NOV-2024 18:10, no significant change was noted Confirmed by Griffin Diaz ([id number]) on 11/12/2024 7:44:39 PM No results found for: CKTOTAL , CKMB , CKMBINDEX , TROPONINI Limited Echo (TTE) w/wo Limited Doppler, Color Flow, Imaging Agent, Strain, 3D, Bubble Study Result Date: 10/31/2024 1 1 [facility] Heart Station [address] [id number] [phone] (fax) Echocardiogram-[facility] Name: JUAN KONG Study Date: 10/31/2024 11:16 AM B/P: 106 mmHg/67 mmHg HR: 70 bpm Date of : 1990 [facility] Age: 34 year(s) Patient [...] minimal pericardial effusion. Procedure Staff Reading Group: [facility] Jewelry Cutter: Raegan Cardona BS, RDCS Ordering Physician: SARITHA [...] CTA coronaries discontinued as this will not manager of change Continue on toprol 50 mg daily Continue [...] week of discharge @ 11/28 at 11amin [facility] will sign off as there are no further recommendations. Please call with any questions orconcerns. This note was, at least in part, completed using a voice tour bus driver system. Every effort was made to ensure accuracy. However, inadvertent computerized tour bus driver errors may be present. Lisa Pena DO Internal Medicine Resident, PGY-[address] [facility] 8:05 AM 11/13/24 [1] Current Facility-Administered Medications: [...] mg, 100 mg, oral, BID, Debbie Mahmoodkl, SENIOR SOLUTIONS CONSULTANT, 100 mg at 11/12/24 2141 escitalopram (Lexapro) [...] 0.3 mg, 0.3 mg, intravenous, q4h PRN, Makry Tavares MD, 0.3 mgat 11/13/24 0722 hydrOXYzine [...] Nightly, Shanna Lamas DO, 40 mg at 140 Insert peripheral [...] from the original note were not included. [facility] Daily Progress Note - 11/12/2024 12:37 PM; Room: [facility]- Admission: 11/09/2024 10:47 AM; Length of stay: 1 days THE HOSPITALIST TEAM PREFERS TO USE [employer] FOR NON-URGENT COMMUNICATION 7AM- 7PM. IF I DO NOT RESPOND WITHIN 20 MINUTES OR URGENT MATTERS, PLEASE CALL THROUGH THE NUCLEAR MEDICAL TECHNOLOGIST. FROM 7PM-7AM, PLEASE PAGE [phone](COVR). Code Status: Full Code Barriers to Discharge: [...] complication, without long-term current use of insulin ([facility]) - ISS - Blood glucose is [...] LDL 73 10/31/2024 No results found for: [id number] , IRON , TIBC , C3 , [...] Discharge Planning Expected Discharge Disposition: Home-Health Care [facility] [place] (06) Signed Marky Tavares MD [facility] 11/12/2024 12:37 PM * Gerry Batista [...] who came as a direct admission from [facility] due to chest pain. Patient was [...] she was supposed to be going to [facility] for PEG tube placement the next daywith her . As they were getting in the car, she started feeling similar chest pain, sharp shooting in nature, 10 out of 10, radiating to her left shoulder, along with diaphoresis, shortness ofbreath, and does not recall it being exacerbated with taking a deep breath. Patient was then taken to [facility] near [place], and was transferred from there to [facility] for appropriate workup of chest pain and [...] Value Ventricular Rate 89 Atrial Rate 89 ND Interval 142 QRS DURATION 88 QT Interval 392 QTC CALCULATION(BAZETT) 476 P [place] 64 R-[place] 21 T Wave [place] 50 Impression Sinus rhythm with Premature supraventricular complexes Otherwise normal ECG When compared with ECG of 10-NOV-2024 15:02, Premature supraventricular complexes are now Present No results found for: CKTOTAL , CKMB , CKMBINDEX , TROPONINI Limited Echo (TTE) w/wo Limited Doppler, Color Flow, Imaging Agent, Strain, 3D, Bubble Study Result Date: 10/31/2024 1 1 [facility] Heart Station [address] [place] [address] [phone] (fax) Echocardiogram-[facility] Name: JUAN KONG Study Date: 10/31/2024 11:16 AM B/P: 106 mmHg/67 mmHg HR: 70 bpm Date of : 1990 [facility]. Age: 34 year(s) Patient [...] minimal pericardial effusion. Procedure Staff Reading Group: [facility] Jewelry Cutter: DAVID Kearney, RDCS Ordering Physician: SARITHA RITTER [...] least in part, completed using a voice tour bus driver system. Every effort was made to ensure accuracy. However, inadvertent computerized tour bus driver errors may be present. Gerry Batista MD Internal Medicine Resident, PGY-[facility] 8:07 AM 11/12/24 [1] Current Facility-Administered Medications: [...] mg, 50 mg, intravenous, q6h PRN, Shanna Lmaas DO, 50 mg at 11/12/24 0620 docusate sodium (Colace) capsule 100 mg, 100 mg, oral, BID, Debbie Luna, SENIOR SOLUTIONS CONSULTANT, 100 mg at 11/11/24 2222 escitalopram (Lexapro) [...] who came as a direct admission from [facility] due to chest pain. Patient was [...] she was supposed to be going to [facility] for PEG tube placement the next daywith her . As they were getting in the car, she started feeling similar chest pain, sharp shooting in nature, 10 out of 10, radiating to her left shoulder, along with diaphoresis, shortness ofbreath, and does not recall it being exacerbated with taking a deep breath. Patient was then taken to [facility] near [place], and was transferred from there to [facility] for appropriate workup of chest pain and [...] Value Ventricular Rate 82 Atrial Rate 82 ND Interval 142 QRS DURATION 92 QT Interval 408 QTC CALCULATION(BAZETT) 476 P [place] 60 R-[place] 33 T Wave [place] 61 Impression Normal sinus rhythm Normal ECG When compared with ECG of 10-NOV-2024 07:58, (unconfirmed) No significant change was found No results found for: CKTOTAL , CKMB , CKMBINDEX , TROPONINI Limited Echo (TTE) w/wo Limited Doppler, Color Flow, Imaging Agent, Strain, 3D, Bubble Study Result Date: 10/31/2024 1 1 [facility] Heart Station [address] [place] [address] [phone] (fax) Echocardiogram-[facility] Name: JUAN KONG Study Date: 10/31/2024 11:16 AM B/P: 106 mmHg/67 mmHg HR: 70 bpm Date of : 1990 [facility]. Age: 34 year(s) Patient [...] minimal pericardial effusion. Procedure Staff Reading Group: [facility] Jewelry Cutter: DAVID Kearney, RDCS Ordering Physician: SARITHA RITTER [...] least in part, completed using a voice tour bus driver system. Every effort was made to ensure accuracy. However, inadvertent computerized tour bus driver errors may be present. Lisa Pena DO Internal Medicine Resident, PGY-2 [facility] 10:32 AM 11/11/24 [1] Current Facility-Administered Medications: [...] mg, 100 mg, oral, BID, Debbie kl, SENIOR SOLUTIONS CONSULTANT, 100 mg at 11/11/24 0943 escitalopram (Lexapro) [...] from the original note were not included. [facility] Daily Progress Note - 11/11/2024 10:29 AM; Room: [address] [place] [address] Admission: 11/09/2024 10:47 AM; Length of stay: 1 days THE HOSPITALIST TEAM PREFERS TO USE [employer] FOR NON-URGENT COMMUNICATION 7AM- 7PM. IF I DO NOT RESPOND WITHIN 20 MINUTES OR URGENT MATTERS, PLEASE CALL THROUGH THE NUCLEAR MEDICAL TECHNOLOGIST. FROM 7PM-7AM, PLEASE PAGE [phone](COVR). Code Status: Full Code Barriers to Discharge: [...] complication, without long-term current use of insulin ([facility]) - ISS - Blood glucose is [...] Daily insulin lispro, 0-5 Units, subcutaneous, q6h [facility] kit prep Tc 99m-sestamibi no.1, 10 [...] oral, Nightly verapamil, 40 mg, oral, q8h [facility] Adult Cyclic 3-in-1 TPN, 2,300 mL [...] LDL 73 10/31/2024 No results found for: [id number] , IRON , TIBC , C3 , C4 , MISAEL , CANCA , ASO , PSA , CEA , CA125 , CA199 , AFP , CA153 Imaging ECG 12 lead Normal sinus rhythm Normal ECG When compared with ECG of 09-NOV-2024 12:16, No significant change was found Confirmed by Erlin Geller ([id number]) on 11/11/2024 1:19:49 AM Discharge Planning Expected Discharge Disposition: Home-Health Care [facility] [place] (06) Signed Marky Tavares MD [facility] 11/11/2024 10:29 AM * Marky Tavares MD - 11/10/2024 4:13 PM EDT Images from the original note were not included. [facility] Medicine Daily Progress Note - 11/10/2024 4:13 PM; Room: [address] [place] [address] Admission: 11/09/2024 10:47 AM; Length of stay: 1 days THE HOSPITALIST TEAM PREFERS TO USE [employer] FOR NON-URGENT COMMUNICATION 7AM- 7PM. IF I DO NOT RESPOND WITHIN 20 MINUTES OR URGENT MATTERS, PLEASE CALL THROUGH THE NUCLEAR MEDICAL TECHNOLOGIST. FROM 7PM-7AM, PLEASE PAGE [phone](COVR). Code Status: Full Code Barriers to Discharge: lexiscan stress test Expected Discharge Date: 11/13? Discharge Destination: home? Overview Patient is seen for evaluation and management of chest pain. Subjective Patient seen and examined in the morning. She was resting in bed. 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 She presented to outside facility with [...] oral, Nightly verapamil, 40 mg, oral, q8h [facility] Adult Cyclic 3-in-1 TPN, 2,300 mL [...] LDL 73 10/31/2024 No results found for: [id number] , IRON , TIBC , C3 , [...] home on 11/07/24. She was travelling to [facility] for JT placement when symptoms started. She was readmitted to 11/09/24. She reports last TPN was administered per home schedule on 11/08/24.There have been no changes to regimen or nutrition history. NPO for testing. HPN 3 days per week (MWF) via [facility]. Managed by [facility]. Supplemental IVF. PO diet regular as tolerated. Intakes variable. Wells, small meals. ONS. Dextrose 200 g AA [...] ideal body weight (59.3 kg) Calorie needs: 8501-0583 kcals/day based on 25-30 kcal/kg Protein needs: [...] of Nutrition and Dietetics (AND) and the [place] [employer] of Enteral and Parenteral Nutrition (ASPEN). Treatment Plan: TPN tonight, no change to home order Check Phosphorus Resume Regular diet post procedure Order snacks & ONS [same as last admission] per pt request Goals: Weight maintenance Maintain visceral protein Nutrition-related labs (magnesium, phosphorus, BMP) wnl To reach the Clinical Dietitian, please utilize [employer] chat Wednesday-Wednesday from 8AM-4PM or call extension [phone]. For weekends (Wednesday-Wednesday) and holidays, the Clinical Dietitian can be reached via pager [phone]) from 9AM-3PM. The Clinical Nutrition Department is unable to respond to [employer] chat messages on Sundays and hols. * [...] who came as a direct admission from [facility] due to chest pain. Patient was [...] she was supposed to be going to [facility] for PEG tube placement the next daywith her . As they were getting in the car, she started feeling similar chest pain, sharp shooting in nature, 10 out of 10, radiating to her left shoulder, along with diaphoresis, shortness ofbreath, and does not recall it being exacerbated with taking a deep breath. Patient was then taken to [facility] near [place], and was transferred from there to [facility] for appropriate workup of chest pain and [...] Value Ventricular Rate 69 Atrial Rate 69 ND Interval 152 QRS DURATION 96 QT Interval 436 QTC CALCULATION(BAZETT) 467 P [place] 59 R-[place] 47 T Wave [place] 45 Impression Normal sinus rhythm Normal ECG When compared with ECG of 09-NOV-2024 12:16, No significant change was found No results found for: CKTOTAL , CKMB , CKMBINDEX , TROPONINI Limited Echo (TTE) w/wo Limited Doppler, Color Flow, Imaging Agent, Strain, 3D, Bubble Study Result Date: 10/31/2024 1 1 [facility] Heart Station [address] [place] [address] [phone] (fax) Echocardiogram-[facility] Name: JUAN KONG Study Date: 10/31/2024 11:16 AM B/P: 106 mmHg/67 mmHg HR: 70 bpm Date of : 1990 [facility]. Age: 34 year(s) Patient Room: [facility] Weight: 181 lb. Gender: Female Patient [...] minimal pericardial effusion. Procedure Staff Reading Group: [facility] Jewelry Cutter: Raegan Cardona, BS, RDCS Ordering Physician: SARITHA [...] least in part, completed using a voice tour bus driver system. Every effort was made to ensure accuracy. However, inadvertent computerized tour bus driver errors may be present. Lisa Pena DO Internal Medicine Resident, PGY-2 [facility] 8:43 AM 11/10/24 [1] Current Facility-Administered Medications: [...] mg, 100 mg, oral, BID, Debbie Luna, SENIOR SOLUTIONS CONSULTANT, 100 mg at 11/09/24 2204 enoxaparin (Lovenox) [...] DO, 1 patch at 11/09/24 1505 HYDROcodone-acetaminophen ([place]) 5-325 mg per tablet 2 tablet, 2 [...] SCAD Bacilio Conway MD, ScM, MSc Cardiac [place] Email: [email or web address] in this encounter H&P Notes * Shanna Lamas, DO - 11/09/2024 1:32 PM EDT Images from the original note were not included. Hospital Medicine History and Physical 11/09/2024 1:32 PM THE HOSPITALIST TEAM PREFERS TO USE [employer] CH[employer] FOR NON-URGENT COMMUNICATION 7AM- 7PM. IF I DO NOT RESPOND WITHIN 20 MINUTES OR URGENT MATTERS, PLEASE CALL THROUGH THE NUCLEAR MEDICAL TECHNOLOGIST. FROM 7PM-7AM, PLEASE PAGE [phone](COVR). Chief Complaint No chief complaint on file. [...] who came as a direct admission from [facility] due to chest pain. Patient was [...] she was supposed to be going to [facility] for PEG tube placement the next daywith her . As they were getting in the car, she started feeling similar chest pain, sharp shooting in nature, 10 out of 10, radiating to her left shoulder, along with diaphoresis, shortness ofbreath, and does not recall it being exacerbated with taking a deep breath. Patient was then taken to [facility] near [place], and was transferred from there to [facility] for appropriate workup of chest pain and [...] complication, without long-term current use of insulin ([facility]) - ISS IBS (irritable bowel syndrome) [...] this hospital stay by a member of [facility] Medicine. Past Medical History Medical History[1] [...] Physical Activity: Insufficiently Active (06/30/2023) Received from [facility] Exercise Vital Sign Days of Exercise per Week: 3 days Minutes of Exercise per Session: 10 min Stress: Stress Concern Present (06/30/2023) Received from [facility] [employer] [place] [facility] [employer] [facility] - Occupational Stress Questionnaire Feeling of Stress : Rather much Social Connections: Moderately Integrated (06/30/2023) Received from [facility] Social Connection and Isolation Panel [NHANES] Frequency of Communication with Friends and Family: Twice a week Frequency of Social Gatherings with Friends and Family: Twice a week Attends Sikhism Services: More than 4 times per year [...] Procedure Abnormality Status --------- ------ CBC auto differential[[id number]] Please view results for these tests on the individual orders. MAGNESIUM CBC WITH AUTO DIFFERENTIAL Imaging ECG 12 lead Normal sinus rhythm Minimal voltage criteria for LVH, may be normal variant ( Dunbar product ) Borderline ECG When compared with ECG of 07-NOV-2024 11:33, No significant change was found Signed Shanna Lamas [facility] Medicine 11/09/2024 1:32 PM [1] Past Medical [...] tablet 3 ergocalciferol (Vitamin D-2) 1.25 MG (75757 Units) capsule Take 50,000 Units by mouth 1 (one) time per week. escitalopram (Lexapro) 20 mg tablet Take 20 mg by mouth in the morning. fentaNYL (Duragesic) 12 mcg/hr Place 1 patch on the skin every 3rd (third) day. Takes 12 mcg and 25mcg together every 3 days fentaNYL (Duragesic) 25 mcg/hr Place 1 patch on the skin every 3rd (third) day. HYDROcodone-acetaminophen ([place]) 5-325 mg tablet Take 2 tablets by [...] who came as a direct admission from [facility] due to chest pain. Patient was [...] she was supposed to be going to [facility] for PEG tube placement the next daywith her . As they were getting in the car, she started feeling similar chest pain, sharp shooting in nature, 10 out of 10, radiating to her left shoulder, along with diaphoresis, shortness ofbreath, and does not recall it being exacerbated with taking a deep breath. Patient was then taken to [facility] near [place], and was transferred from there to [facility] for appropriate workup of chest pain and [...] 1 patch, transdermal, Every 72 hours HYDROcodone-acetaminophen ([place]) 5-325 mg tablet 2 tablets, oral, Every [...] Value Ventricular Rate 91 Atrial Rate 91 ND Interval 134 QRS DURATION 88 QT Interval 386 QTC CALCULATION(BAZETT) 474 P [place] 63 R-[place] 35 T Wave [place] 46 Impression Sinus rhythm with PVCs Otherwise normal ECG When compared with ECG of 04-NOV-2024 13:40, PVCs are now Present Confirmed by Griffin Diaz ([id number]) on 11/07/2024 11:05:14 PM No results found for: CKTOTAL , CKMB , CKMBINDEX , TROPONINI Limited Echo (TTE) w/wo Limited Doppler, Color Flow, Imaging Agent, Strain, 3D, Bubble Study Result Date: 10/31/2024 1 1 [facility] Heart Station [address] [place] [address] [phone] (fax) Echocardiogram-[facility] Name: JUAN KONG Study Date: 10/31/2024 11:16 AM B/P: 106 mmHg/67 mmHg HR: 70 bpm Date of : 1990 [facility] Age: 34 year(s) Patient [...] minimal pericardial effusion. Procedure Staff Reading Group: [facility] Jewelry Cutter: DAVID Kearney, RDCS Ordering Physician: SARITHA RITTER [...] least in part, completed using a voice tour bus driver system. Every effort was made to ensure accuracy. However, inadvertent computerized tour bus driver errors may be present. Lisa Pena DO Internal Medicine Resident, PGY-[address] [facility] 11:11 AM 11/09/24 [1] No family history [...] tablet 3 ergocalciferol (Vitamin D-2) 1.25 MG (86330 Units) capsule Take 50,000 Units by mouth 1 (one) time per week. escitalopram (Lexapro) 20 mg tablet Take 20 mg by mouth in the morning. fentaNYL (Duragesic) 12 mcg/hr Place 1 patch on the skin every 3rd (third) day. Takes 12 mcg and 25mcg together every 3 days fentaNYL (Duragesic) 25 mcg/hr Place 1 patch on the skin every 3rd (third) day. HYDROcodone-acetaminophen ([place]) 5-325 mg tablet Take 2 tablets by [...] uptitrate Bacilio Conway MD, ScM, MSc Cardiac [place] Email: [email or web address] documented in this encounter Nursing Notes [...] bleeding or hemorrhage * Care Plan - Brianna Ling RN - 11/13/2024 1:12 PM EDT Daily Case Management Update Multidisciplinary rounds have been completed. Barriers to Discharge: Patient is medically ready for hospital discharge at this time. AVS has beencompleted, and primary RN has been notified of patients discharge readiness. Patient will be discharged to home with [facility], and family will provide patients discharge transportation. AVS has been sent to patients [facility] agency. No further OTM needs identified at this time. 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 Recommendations to address these barriers include [...] without complication, without long-term current useof insulin ([facility]) - ISS - Blood glucose is [...] * Assessment & Plan Note - Marky aTvares MD - 11/10/2024 4:18 PM EDTAssociated Problem(s): History of adrenal insufficiency -stable - cont cortef * Assessment & Plan Note - Marky Tavares MD - 11/10/2024 4:18 PM EDTAssociated Problem(s): Type 2 diabetes mellitus without complication, without long-term current useof insulin ([facility]) - ISS - Blood glucose is [...] and hemodynamically stable Full final report from it operations analyst to follow. Evelyne Abrams RN [facility] Cardiovascular Stress Lab * Care Plan - [...] without complication, without long-term current useof insulin ([facility]) - ISS * Assessment & Plan [...] Info) Description 11/20/2024 2:30 PM EDT Follow-Up [facility] Vascular and Endovascular Surgery [address] [place] [address] Delphine Du NP [address] [place] [place], [place] [id number] 11/28/2024 11:00 AM EDT Follow-Up [facility] [address] [place] [address] Wali Collins MD [address] [place] [address] 12/04/2024 10:00 AM EDT Office Visit [facility] at [place] [address] [place] [address] Katie Altamirano MD [address] [place] [address] Pending Results Name Type Priority Associated Diagnoses Date/Time Peripheral blood smear, path review Pathology and Cytology Add-On 11/13/2024 7:03 AM EDT Scheduled Orders Name Type Priority Associated Diagnoses Order Schedule Peripheral blood smear, path review Pathology and Cytology Add-On Once (Lab) for 1 Occurrences starting 11/13/2024 until 11/13/2024 CBC Lab Routine Chest pain Expected: 11/16/2024 (Approximate), Expires: 11/13/2025 documented as of this encounter Procedures [...] right basilaratelectasis. Electronically signed: Willis Simons MD. Marky Tavares MD IMG XR PROCEDURES Final Result * POCT glucose meter (11/13/2024 11:08 AM EDT) [facility] Glucose POC 97 70 - 105 mg/dL 11/13/2024 11:26 AM EDT [facility] ([facility]) Comment:[email or web address] Blood Capillary blood specimen / Unknown 11/13/2024 11:08 AM EDT 11/13/2024 11:26 AM EDT Narrative [facility] ([facility]) - 11/13/2024 11:26 AM EDT Waived Testing in the ED is performed under the ED CLIA certificate #[id number]. Marky Tavares MD LAB BLOOD ORDERABLES Final Res ult [facility] ([facility]) [address] [place] [address] * High Sensitivity Troponin I (11/13/2024 7:03 AM EDT) [facility] High Sensitivity Troponin I <2 <15 ng/L 11/13/2024 7:58 AM EDT [facility] ([facility]) Blood Venous blood specimen / Unknown Existing Catheter / Unknown 11/13/2024 7:03 AM EDT 11/13/2024 7:21 AM EDT us Marky Tavares MD LAB BLOOD ORDERABLES Final Res ult [facility] ([facility]) [address] [place] [address] * (ABNORMAL) Basic metabolic panel (11/13/2024 7:03 AM EDT) Sodium 140 136 - 145 mmol/L 11/13/2024 7:58 AM EDT [facility] ([facility]) Potassium 3.8 3.5 - 5.1 mmol/L 11/13/2024 7:58 AM EDT [facility] ([facility]) Chloride 108(H) 98 - 107 mmol/L 11/13/2024 7:58 AM EDT [facility] ([facility]) CO2 25 21 - 31 mmol/L 11/13/2024 7:58 AM EDT [facility] ([facility]) BUN 9 7 - 25 mg/dL 11/13/2024 7:58 AM EDT [facility] ([facility]) Creatinine 0.72 0.60 - 1.20 mg/dL 11/13/2024 7:58 AM EDT [facility] ([facility]) Glucose 81 70 - 100 mg/dL 11/13/2024 7:58 AM EDT [facility] ([facility]) Calcium 8.4(L) 8.6 - 10.3 mg/dL 11/13/2024 7:58 AM EDT [facility] ([facility]) Anion Gap 11 7 - 20 mmol/L 11/13/2024 7:58 AM EDT [facility] ([facility]) eGFR 111.8 >60.0 mL/min/1. 73m*2 11/13/2024 7:58 AM EDT [facility] ([facility]) Comment:[facility] s estimated glomerular filtration rate [...] individuals. BUN/Creatinine Ratio 12.5 10/17 7:58 AM EDT [facility] ([facility]) Blood Venous blood specimen / Unknown Existing Catheter / Unknown 11/13/2024 7:03 AM EDT 11/13/2024 7:21 AM EDT us Marky Tavares MD LAB BLOOD ORDERABLES Final Res ult [facility] ([facility]) [address] [place] [id number] * (ABNORMAL) CBC (11/13/2024 7:03 AM EDT) Auto WBC 3.34(L) 4.00 - 10.60 10*3/uL 11/13/2024 7:35 AM EDT [facility] ([facility]) RBC 2.88(L) 3.80 - 5.00 10*6/uL 11/13/2024 7:35 AM EDT [facility] ([facility]) Hemoglobin 8.6(L) 12.0 - 15.0 g/dL 11/13/2024 7:35 AM EDT [facility] ([facility]) Hematocrit 26.2(L) 36.0 - 45.0 % 11/13/2024 7:35 AM EDT [facility] ([facility]) MCV 91.0 82.0 - 98.0 fL 11/13/2024 7:35 AM EDT [facility] ([facility]) MCH 29.9 27.0 - 33.0 pg 11/13/2024 7:35 AM EDT [facility] ([facility]) MCHC 32.8 32.0 - 35.0 g/dL 11/13/2024 7:35 AM EDT [facility] ([facility]) RDW 14.6 11.5 - 15.0 % 11/13/2024 7:35 AM EDT [facility] ([facility]) Platelets 257 150 - 400 10*3/uL 11/13/2024 7:35 AM EDT [facility] ([facility]) Blood Venous blood specimen / Unknown Existing Catheter / Unknown 11/13/2024 7:03 AM EDT 11/13/2024 7:22 AM EDT Marky Tavares MD LAB BLOOD ORDERABLES Final Res ult [facility] ([facility]) [address] [place] [address] * POCT glucose meter (11/13/2024 7:01 AM EDT) Glucose POC 94 70 - 105 mg/dL 11/13/2024 7:13 AM EDT [facility] ([facility]) Comment:[email or web address] Blood Capillary blood specimen / Unknown 11/13/2024 7:01 AM EDT 11/13/2024 7:13 AM EDT Narrative [facility] ([facility]) - 11/13/2024 7:13 AM EDT Waived Testing in the ED is performed under the ED CLIA certificate #[id number]. us Marky Tavares MD LAB BLOOD ORDERABLES Final Res ult Performing Organization Address City/[facility]/ZIP Co de Phone Number [facility]) [address] [place] [address] * High Sensitivity Troponin I (11/13/2024 12:17 AM EDT) High Sensitivity Troponin I 3 <15 ng/L 11/13/2024 1:08 AM EDT [facility] ([facility]) Blood Venous blood specimen / Unknown Existing Catheter / Unknown 11/13/2024 12:17 AM EDT 11/13/2024 12:38 AM EDT Marky Tavares MD LAB BLOOD ORDERABLES Final Res ult [facility]) [address] [place], [place] [id number] * (ABNORMAL) POCT glucose meter (11/13/2024 12:16 AM EDT) Glucose POC 111(H) 70 - 105 mg/dL 11/13/2024 12:28 AM EDT [facility] ([facility]) Comment:[email or web address] Blood Capillary blood specimen / Unknown 11/13/2024 12:16 AM EDT 11/13/2024 12:28 AM EDT Narrative [facility]) - 11/13/2024 12:28 AM EDT Waived Testing in the ED is performed under the ED CLIA certificate #[id number]. us Marky Tavares MD LAB BLOOD ORDERABLES Final Res ult Performing Organization Address City/[facility]/ZIP Co de Phone Number [facility]) [address] [place] [address] * High Sensitivity Troponin I (11/12/2024 6:28 PM EDT) [facility] High Sensitivity Troponin I 2 <15 ng/L 11/12/2024 7:02 PM EDT [facility] ([facility]) Blood Venous blood specimen / Unknown Existing Catheter / Unknown 11/12/2024 6:28 PM EDT 11/12/2024 6:30 PM EDT us Marky Tavares MD LAB BLOOD ORDERABLES Final Res ult [facility]) [address] [place], [place] [id number] * (ABNORMAL) POCT glucose meter (11/12/2024 6:18 PM EDT) Glucose POC 147(H) 70 - 105 mg/dL 11/12/2024 6:37 PM EDT [facility]) Comment:[email or web address] Blood Capillary blood specimen / Unknown 11/12/2024 6:18 PM EDT 11/12/2024 6:37 PM EDT Narrative [facility] ([facility] - 11/12/2024 6:37 PM EDT Waived Testing in the ED is performed under the ED CLIA certificate #[id number]. Marky Tavares MD LAB BLOOD ORDERABLES Final Res ult [facility] ([facility]) [address] [place] [address] * ECG 12 lead (11/12/2024 1:41 PM EDT) Pathologist [facility] Ventricular Rate 73 BPM GE MUSE Atrial Rate 73 BPM GE MUSE ND Interval 156 ms GE MUSE QRS DURATION 88 ms GE MUSE QT Interval 414 ms GE MUSE QTC CALCULATION(BAZE TT) 456 ms GE MUSE P [place] 65 degrees GE MUSE R-[place] 46 degrees GE MUSE T Wave [place] 61 degrees GE MUSE 11/12/2024 1:35 PM [...] Griffin Diaz (102) on 11/12/2024 7:44:39 PM Marky Tavares MD ECG ORDERABLES Final Result Performing Organization Address City/[facility]/ZIP Co de Phone Number GE MUSE * High Sensitivity Troponin I (11/12/2024 1:34 PM EDT) [facility] High Sensitivity Troponin I 3 <15 ng/L 11/12/2024 2:13 PM EDT [facility] ([facility]) Blood Venous blood specimen / Unknown Existing Catheter / Unknown 11/12/2024 1:34 PM EDT 11/12/2024 1:42 PM EDT us Marky Tavares MD LAB BLOOD ORDERABLES Final Res ult [facility]) [address] [place] [address] * High Sensitivity Troponin I (11/12/2024 10:56 AM EDT) Pathologist [facility] High Sensitivity Troponin I 2 <15 ng/L 11/12/2024 11:33 AM EDT [facility]) Blood Venous blood specimen / Unknown Existing Catheter / Unknown 11/12/2024 10:56 AM EDT 11/12/2024 11:03 AM EDT us Marky Tavares MD LAB BLOOD ORDERABLES Final Res ult Performing Organization Address [facility] Co de Phone Number [address] [address] * POCT glucose meter (11/12/2024 10:55 AM EDT) Pathologist [facility] Glucose POC 82 70 - 105 mg/dL 11/13/2024 8:12 AM EDT [facility]) Comment:[email or web address] Blood Capillary blood specimen / Unknown 11/12/2024 10:55 AM EDT 11/13/2024 8:12 AM EDT Narrative [facility]) - 11/13/2024 8:12 AM EDT Waived Testing in the ED is performed under the ED CLIA certificate #[id number]. us Marky Tavares MD LAB BLOOD ORDERABLES Final Res ult [facility] ([facility]) [address] [place], [place] [id number] * High Sensitivity Troponin I (11/12/2024 6:30 AM EDT) [facility] High Sensitivity Troponin I 3 <15 ng/L 11/12/2024 7:12 AM EDT [facility] ([facility]) Blood Venous blood specimen / Unknown Existing Catheter / Unknown 11/12/2024 6:30 AM EDT 11/12/2024 6:39 AM EDT us Marky Tavares MD LAB BLOOD ORDERABLES Final Res ult [facility] ([facility]) [address] [place], [place] [id number] * (ABNORMAL) Basic metabolic panel (11/12/2024 6:30 AM EDT) [facility] Sodium 140 136 - 145 mmol/L 11/12/2024 7:12 AM EDT [facility] ([facility]) Potassium 3.9 3.5 - 5.1 mmol/L 11/12/2024 7:12 AM EDT [facility] ([facility]) Chloride 108(H) 98 - 107 mmol/L 11/12/2024 7:12 AM EDT [facility] ([facility]) CO2 26 21 - 31 mmol/L 11/12/2024 7:12 AM EDT [facility] ([facility]) BUN 10 7 - 25 mg/dL 11/12/2024 7:12 AM EDT [facility] ([facility]) Creatinine 0.67 0.60 - 1.20 mg/dL 11/12/2024 7:12 AM EDT [facility] ([facility]) Glucose 88 70 - 100 mg/dL 11/12/2024 7:12 AM EDT [facility] ([facility]) Calcium 8.5(L) 8.6 - 10.3 mg/dL 11/12/2024 7:12 AM EDT [facility] ([facility]) Anion Gap 10 7 - 20 mmol/L 11/12/2024 7:12 AM EDT [facility] ([facility]) eGFR 116.8 >60.0 mL/min/1. 73m*2 11/12/2024 7:12 AM EDT [facility] ([facility]) Comment:[facility] s estimated glomerular filtration rate [...] BUN/Creatinine Ratio 14.9 10/17 7:12 AM EDT [facility] ([facility]) Blood Venous blood specimen / Unknown Existing Catheter / Unknown 11/12/2024 6:30 AM EDT 11/12/2024 6:39 AM EDT us Marky Tavares MD LAB BLOOD ORDERABLES Final Res ult [facility]) [address] [place] [address] * (ABNORMAL) CBC (11/12/2024 6:30 AM EDT) Auto WBC 3.43(L) 4.00 - 10.60 10*3/uL 11/12/2024 6:48 AM EDT [facility] ([facility]) RBC 2.87(L) 3.80 - 5.00 10*6/uL 11/12/2024 6:48 AM EDT [facility] ([facility]) Hemoglobin 8.6(L) 12.0 - 15.0 g/dL 11/12/2024 6:48 AM EDT [facility] ([facility]) Hematocrit 26.0(L) 36.0 - 45.0 % 11/12/2024 6:48 AM EDT [facility] ([facility]) MCV 90.6 82.0 - 98.0 fL 11/12/2024 6:48 AM EDT [facility] ([facility]) MCH 30.0 27.0 - 33.0 pg 11/12/2024 6:48 AM EDT [facility] ([facility]) MCHC 33.1 32.0 - 35.0 g/dL 11/12/2024 6:48 AM EDT [facility] ([facility]) RDW 14.6 11.5 - 15.0 % 11/12/2024 6:48 AM EDT [facility] ([facility]) Platelets 247 150 - 400 10*3/uL 11/12/2024 6:48 AM EDT [facility] ([facility]) Blood Venous blood specimen / Unknown Existing Catheter / Unknown 11/12/2024 6:30 AM EDT 11/12/2024 6:39 AM EDT us Marky Tavares MD LAB BLOOD ORDERABLES Final Res ult [facility] ([facility]) [address] [place] [address] * POCT glucose meter (11/12/2024 6:27 AM EDT) [facility] Glucose POC 97 70 - 105 mg/dL 11/12/2024 6:39 AM EDT [facility] ([facility]) Comment:[email or web address] Blood Capillary blood specimen / Unknown 11/12/2024 6:27 AM EDT 11/12/2024 6:39 AM EDT Narrative [facility] ([facility]) - 11/12/2024 6:39 AM EDT Waived Testing in the ED is performed under the ED CLIA certificate #[id number]. us Marky Tavares MD LAB BLOOD ORDERABLES Final Res ult [facility]) [address] [place] [address] * High Sensitivity Troponin I (11/12/2024 12:00 AM EDT) High Sensitivity Troponin I 3 <15 ng/L 11/12/2024 12:43 AM EDT [facility] ([facility]) Blood Venous blood specimen / Unknown Existing Catheter / Unknown 11/12/2024 11/12/2024 12:12 AM EDT Marky Tavares MD LAB BLOOD ORDERABLES Final Res ult Performing Organization Address [facility]/ZIP Co de Phone Number [facility] ([facility]) [address] [place] [address] * POCT glucose meter (11/11/2024 11:56 PM EDT) [facility] Glucose POC 82 70 - 105 mg/dL 11/12/2024 12:10 AM EDT [facility] ([facility]) Comment:[email or web address] Blood Capillary blood specimen / Unknown 11/11/2024 11:56 PM EDT 11/12/2024 12:10 AM EDT Narrative [facility] ([facility]) - 11/12/2024 12:10 AM EDT Waived Testing in the ED is performed under the ED CLIA certificate #[id number]. Marky Tavares MD LAB BLOOD ORDERABLES Final Res ult Performing Organization Address [facility] de Phone Number [facility] ([facility]) [address] [place] [phone] * CTA Chest W IV Contrast (11/11/2024 [...] findingsin this report. Electronically signed: Rebecca Solano. us Marky Tavares MD IMG CT PROCEDURES Final Result * ECG 12 lead (11/11/2024 6:15 PM EDT) Ventricular Rate 89 BPM GE MUSE Atrial Rate 89 BPM GE MUSE ND Interval 142 ms GE MUSE QRS DURATION 88 ms GE MUSE QT Interval 392 ms GE MUSE QTC CALCULATION(BAZE TT) 476 ms GE MUSE P [place] 64 degrees GE MUSE R-[place] 21 degrees GE MUSE T Wave [place] 50 degrees GE MUSE 11/11/2024 6:10 PM [...] JONELLE Harmon (56) on 11/12/2024 1:21:31 PM Marky Tavares MD ECG ORDERABLES Final Result Performing Organization Address [facility] Co de Phone Number GE MUSE * High Sensitivity Troponin I (11/11/2024 6:14 PM EDT) [facility] High Sensitivity Troponin I <2 <15 ng/L 11/11/2024 7:54 PM EDT [facility] ([facility]) Blood Venous blood specimen / Unknown Existing Catheter / Unknown 11/11/2024 6:14 PM EDT 11/11/2024 6:24 PM EDT Marky Tavares MD LAB BLOOD ORDERABLES Final Res ult Performing Organization Address [facility] Co de Phone Number [facility]) [address] [place] [address] * (ABNORMAL) POCT glucose meter (11/11/2024 5:16 PM EDT) [facility] Glucose POC 162(H) 70 - 105 mg/dL 11/11/2024 5:27 PM EDT [facility]) Comment:[email or web address] Blood Capillary blood specimen / Unknown 11/11/2024 5:16 PM EDT 11/11/2024 5:27 PM EDT Narrative [facility]) - 11/11/2024 5:27 PM EDT Waived Testing in the ED is performed under the ED CLIA certificate #[id number]. Marky Tavares MD LAB BLOOD ORDERABLES Final Res ult Performing Organization Address City/[facility]/ZIP Co de Phone Number [facility]) [address] [place] [address] * (ABNORMAL) C-reactive protein (11/11/2024 3:29 PM EDT) [facility] CRP 13.4(H) <=5.0 mg/L 11/13/2024 10:24 AM EDT [facility] ([facility]) Comment:Testing performed us ing a new methodology, turbidimetry. Normal ranges have been updated. Old normal range was <8 mg/L. Blood Venous blood specimen / Unknown Existing Catheter / Unknown 11/11/2024 3:29 PM EDT 11/11/2024 3:42 PM EDT us Jonelle Sierra MD LAB BLOOD ORDERABLES Final Res ult [facility]) [address] [place] [address] * (ABNORMAL) POCT glucose meter (11/11/2024 12:49 PM EDT) Glucose POC 138(H) 70 - 105 mg/dL 11/11/2024 1:00 PM EDT [facility] ([facility]) Comment:[email or web address] Blood Capillary blood specimen / Unknown 11/11/2024 12:49 PM EDT 11/11/2024 1:00 PM EDT Narrative [facility] ([facility]) - 11/11/2024 1:00 PM EDT Waived Testing in the ED is performed under the ED CLIA certificate #[id number]. us Marky Tavares MD LAB BLOOD ORDERABLES Final Res ult Performing Organization Address City/[facility]/ZIP Co de Phone Number [facility]) [address] [place] [address] * (ABNORMAL) Sedimentation rate (11/11/2024 6:39 AM EDT) Sed Rate 20(H) <20 mm/hr 11/11/2024 12:20 PM EDT [facility] ([facility]) Blood Venous blood specimen / Unknown Existing Catheter / Unknown 11/11/2024 6:39 AM EDT 11/11/2024 6:43 AM EDT us Jonelle Sierra MD LAB BLOOD ORDERABLES Final Res ult [facility] ([facility]) [address] [place], [place] [id number] * (ABNORMAL) Basic metabolic panel (11/11/2024 6:39 AM EDT) Sodium 137 136 - 145 mmol/L 11/11/2024 7:08 AM EDT [facility] ([facility]) Potassium 3.7 3.5 - 5.1 mmol/L 11/11/2024 7:08 AM EDT [facility] ([facility]) Chloride 104 98 - 107 mmol/L 11/11/2024 7:08 AM EDT [facility] ([facility]) CO2 27 21 - 31 mmol/L 11/11/2024 7:08 AM EDT [facility] ([facility]) BUN 13 7 - 25 mg/dL 11/11/2024 7:08 AM EDT [facility] ([facility]) Creatinine 0.68 0.60 - 1.20 mg/dL 11/11/2024 7:08 AM EDT [facility] ([facility]) Glucose 117(H) 70 - 100 mg/dL 11/11/2024 7:08 AM EDT [facility] ([facility]) Calcium 8.3(L) 8.6 - 10.3 mg/dL 11/11/2024 7:08 AM EDT [facility] ([facility]) Anion Gap 10 7 - 20 mmol/L 11/11/2024 7:08 AM EDT [facility] ([facility]) eGFR 116.4 >60.0 mL/min/1. 73m*2 11/11/2024 7:08 AM T [facility] ([facility]) Comment:[facility] s estimated glomerular filtration rate [...] BUN/Creatinine Ratio 19.1 10/17 7:08 AM EDT [facility] ([facility]) Blood Venous blood specimen / Unknown Existing Catheter / Unknown 11/11/2024 6:39 AM EDT 11/11/2024 6:43 AM EDT us Marky Tavares MD LAB BLOOD ORDERABLES Final Res ult [facility]) [address] [place] [address] * (ABNORMAL) CBC (11/11/2024 6:39 AM EDT) Auto WBC 3.76(L) 4.00 - 10.60 10*3/uL 11/11/2024 6:56 AM EDT [facility] ([facility]) RBC 2.95(L) 3.80 - 5.00 10*6/uL 11/11/2024 6:56 AM EDT [facility] ([facility]) Hemoglobin 8.8(L) 12.0 - 15.0 g/dL 11/11/2024 6:56 AM EDT [facility] ([facility]) Hematocrit 26.7(L) 36.0 - 45.0 % 11/11/2024 6:56 AM EDT [facility] ([facility]) MCV 90.5 82.0 - 98.0 fL 11/11/2024 6:56 AM EDT [facility] ([facility]) MCH 29.8 27.0 - 33.0 pg 11/11/2024 6:56 AM EDT [facility] ([facility]) MCHC 33.0 32.0 - 35.0 g/dL 11/11/2024 6:56 AM EDT [facility] ([facility]) RDW 14.4 11.5 - 15.0 % 11/11/2024 6:56 AM EDT [facility] ([facility]) Platelets 243 150 - 400 10*3/uL 11/11/2024 6:56 AM EDT [facility] ([facility]) Blood Venous blood specimen / Unknown Existing Catheter / Unknown 11/11/2024 6:39 AM EDT 11/11/2024 6:43 AM EDT Marky Tavares MD LAB BLOOD ORDERABLES Final Res ult Performing Organization Address [facility] Co de Phone Number [facility]) [address] [place] [address] * (ABNORMAL) POCT glucose meter (11/11/2024 6:35 AM EDT) Glucose POC 125(H) 70 - 105 mg/dL 11/11/2024 6:45 AM EDT [facility] ([facility]) Comment:[email or web address] Blood Capillary blood specimen / Unknown 11/11/2024 6:35 AM EDT 11/11/2024 6:45 AM EDT Narrative [facility] ([facility]) - 11/11/2024 6:45 AM EDT Waived Testing in the ED is performed under the ED CLIA certificate #[id number]. Marky Tavares MD LAB BLOOD ORDERABLES Final Res ult Performing Organization Address [facility] de Phone Number [facility]) [address] [place] [address] * (ABNORMAL) POCT glucose meter (11/11/2024 12:55 AM EDT) Glucose POC 138(H) 70 - 105 mg/dL 11/11/2024 1:07 AM EDT [facility] ([facility]) Comment:[email or web address] Blood Capillary blood specimen / Unknown 11/11/2024 12:55 AM EDT 11/11/2024 1:07 AM EDT Narrative [facility] ([facility]) - 11/11/2024 1:07 AM EDT Waived Testing in the ED is performed under the ED CLIA certificate #[id number]. us Marky Tavares MD LAB BLOOD ORDERABLES Final Res ult Performing Organization Address City/[facility]/ZIP Co de Phone Number [facility]) [address] [place] [address] * High Sensitivity Troponin I (11/10/2024 8:50 PM EDT) [facility] High Sensitivity Troponin I 3 <15 ng/L 11/10/2024 9:27 PM EDT [facility] ([facility]) Blood Venous blood specimen / Unknown Existing Catheter / Unknown 11/10/2024 8:50 PM EDT 11/10/2024 8:53 PM EDT us Bacilio Conway MD LAB BLOOD ORDERABLES Final Resu lt Performing Organization Address [facility] Co de Phone Number [address] [address] * (ABNORMAL) POCT glucose meter (11/10/2024 6:24 PM EDT) [facility] Glucose POC 122(H) 70 - 105 mg/dL 11/10/2024 6:35 PM EDT [facility]) Comment:[email or web address] Blood Capillary blood specimen / Unknown 11/10/2024 6:24 PM EDT 11/10/2024 6:35 PM EDT Narrative [facility]) - 11/10/2024 6:35 PM EDT Waived Testing in the ED is performed under the ED CLIA certificate #[id number]. us Marky Tavares MD LAB BLOOD ORDERABLES Final Res ult Performing Organization Address [facility]/ZIP Co de Phone Number [facility]) [address] [place] [address] * ECG 12 lead (11/10/2024 3:11 PM EDT) [facility] Ventricular Rate 82 BPM GE MUSE Atrial Rate 82 BPM GE MUSE ND Interval 142 ms GE MUSE QRS DURATION 92 ms GE MUSE QT Interval 408 ms GE MUSE QTC CALCULATION(BAZE TT) 476 ms GE MUSE P [place] 60 degrees GE MUSE R-[place] 33 degrees GE MUSE T Wave [place] 61 degrees GE MUSE 11/10/2024 3:02 PM [...] JONELLE Harmon (56) on 11/11/2024 12:45:54 PM us Marky Tavares MD ECG ORDERABLES Final Result GE MUSE * High Sensitivity Troponin I (11/10/2024 2:22 PM EDT) [facility] High Sensitivity Troponin I <2 <15 ng/L 11/10/2024 3:16 PM EDT [facility] ([facility]) Blood Venous blood specimen / Unknown Existing Catheter / Unknown 11/10/2024 2:22 PM EDT 11/10/2024 2:28 PM EDT us Bacilio Conway MD LAB BLOOD ORDERABLES Final Resu lt [facility] ([facility]) [address] [place] [address] * (ABNORMAL) POCT glucose meter (11/10/2024 1:06 PM EDT) Glucose POC 115(H) 70 - 105 mg/dL 11/10/2024 1:17 PM EDT [facility] ([facility]) Comment:[email or web address] Blood Capillary blood specimen / Unknown 11/10/2024 1:06 PM EDT 11/10/2024 1:17 PM EDT Narrative [facility] ([facility]) - 11/10/2024 1:17 PM EDT Waived Testing in the ED is performed under the ED CLIA certificate #[id number]. us Marky Tavares MD LAB BLOOD ORDERABLES Final Res ult [facility] ([facility]) [address] [place] [address] * LEXISCAN STRESS MYOCARDIAL PERFUSION IMAGING (11/10/2024 11:23 AM EDT) Anatomical Region Laterality Modality Other 11/10/2024 11:1 4 AM EDT Addenda Addendum by Mitul Moya MD on 11/10/2024 4:35 PM EDT 1 1 [facility] Heart Station [address] [place] [address] [phone] (fax) Lexiscan Stress Myocardial Perfusion Imaging- [facility] Name: JUAN KONG Study Date: 11/10/2024 11:14 AM B/P: / HR: Date of : 1990 Location: [facility] Height: 65 in. Age: 34 year(s) Patient [...] Lexiscan Exercise Time: 03:02 Device: Treadmill HR [place] Used: 21.00 % HR Recovery: 2 bpm Frequent VE: 1 VE/min Resolution: Persisted Max HR: 98 bpm Target HR: 157 bpm Achieved: No Resting HR: 68 bpm Max Predicted HR: 185 bpm Achv. of Max Predicted: 52 % BP Max: 105/71 BP at Rest: 105/71 Max RPP: 44302 mmHg*bpm Max ST Lead: III Max ST Phase: Infusion Stage No. in Phase: [address] Stage: INFUS2:[address] Amplitude: -0.[address] Hettinger: -0.670 mV/s Max ST Time in Phase: [...] 1.00 mets 67 bpm 105/71 0.250 mm [id number] 00:30 1.00 mets 90 bpm 102/70 0.400 [...] 4 - Aneurysmal Procedure Staff Reading Group: [facility] Referring Physician: THOMAS CALIX Stress Marble Ceiling Installer: [place] [place] [employer] Room Supervisor: Lauren Sanchez Ordering Physician: BACILIO CONWAY Advanced Practitioner: CRISTINA Gibson Nurse: Evelyne Abrams Narrative 11/10/2024 4:35 PM EDT 1 1 [facility] Heart Station [address] [place] [address] [phone] (fax) Lexiscan Stress Myocardial Perfusion Imaging- [facility] Name: JUAN KONG Study Date: 11/10/2024 11:14 AM B/P: / HR: Date of : 1990 Location: [facility] Height: 65 in. Age: 34 year(s) Patient [...] Lexiscan Exercise Time: 03:02 Device: Treadmill HR [place] Used: 21.00 % HR Recovery: 2 bpm Frequent VE: 1 VE/min Resolution: Persisted Max HR: 98 bpm Target HR: 157 bpm Achieved: No Resting HR: 68 bpm Max Predicted HR: 185 bpm Achv. of Max Predicted: 52 % BP Max: 105/71 BP at Rest: 105/71 Max RPP: 74255 mmHg*bpm Max ST Lead: III Max ST Phase: Infusion Stage No. in Phase: [address] Stage: INFUS2:[address] Amplitude: -0.[address] Hettinger: -0.670 mV/s Max ST Time in Phase: [...] 1.00 mets 67 bpm 105/71 0.250 mm [id number] 00:30 1.00 mets 90 bpm 102/70 0.400 [...] 4 - Aneurysmal Procedure Staff Reading Group: [facility] Referring Physician: THOMAS CALIX Stress Marble Ceiling Installer: [place] [place] [employer] Supervisor: Lauren Sanchez Ordering Physician: BACILIO CONWAY Advanced Practitioner: CRISTINA Gibson Nurse: Evelyne Abrams Resting Perfusion Procedure Note Mitul Moya MD - 11/10/2024 1 1 [facility] Heart Station [address] [place] [id number] [phone] (fax) Lexiscan Stress Myocardial Perfusion Imaging- [facility] Name: JUAN KONG Study Date: 11/10/2024 11:14 AM B/P: / HR: Date of : 1990 Location: [facility] Height: 65 in. Age: 34 year(s) Patient [...] Lexiscan Exercise Time: 03:02 Device: Treadmill HR [place] Used: 21.00 % HR Recovery: 2 bpm Frequent VE: 1 VE/min Resolution: Persisted Max HR: 98 bpm Target HR: 157 bpm Achieved: No Resting HR: 68 bpm Max Predicted HR: 185 bpm Achv. of Max Predicted: 52 % BP Max: 105/71 BP at Rest: 105/71 Max RPP: 27243 mmHg*bpm Max ST Lead: III Max ST Phase: Infusion Stage No. in Phase: [address] Stage: INFUS2:[address] Amplitude: -0.[address] Hettinger: -0.670 mV/s Max ST Time in Phase: [...] 1.00 mets 67 bpm 105/71 0.250 mm [id number] 00:30 1.00 mets 90 bpm 102/70 0.400 [...] 4 - Aneurysmal Procedure Staff Reading Group: [facility] Referring Physician: THOMAS CALIX Stress Marble Ceiling Installer: [place] [place] [employer] Room Supervisor: Lauren Sanchez Ordering Physician: BCAILIO CONWAY Advanced Practitioner: CRISTINA Gibson Nurse: Evelyne [...] MUSE Atrial Rate 69 BPM GE MUSE ND Interval 152 ms GE MUSE QRS DURATION 96 ms GE MUSE QT Interval 436 ms GE MUSE QTC CALCULATION(BAZE TT) 467 ms GE MUSE P [place] 59 degrees GE MUSE R-[place] 47 degrees GE MUSE T Wave [place] 45 degrees GE MUSE 11/10/2024 7:58 AM [...] on 11/11/2024 1:19:49 AM us Vicky Cole CNP ECG ORDERABLES Final Result GE MUSE * High Sensitivity Troponin I (11/10/2024 7:44 AM EDT) Pathologist [facility] High Sensitivity Troponin I 3 <15 ng/L 11/10/2024 8:23 AM EDT [facility] ([facility]) Blood Venous blood specimen / Unknown Existing Catheter / Unknown 11/10/2024 7:44 AM EDT 11/10/2024 7:52 AM EDT us Urbano Santos MD LAB BLOOD ORDERABLES Final Re sult [facility] ([facility]) [address] [place] [address] * (ABNORMAL) POCT glucose meter (11/10/2024 7:39 AM EDT) Glucose POC 108(H) 70 - 105 mg/dL 11/10/2024 7:51 AM EDT [facility] ([facility]) Comment:[email or web address] Blood Capillary blood specimen / Unknown 11/10/2024 7:39 AM EDT 11/10/2024 7:51 AM EDT [facility] ([facility]) - 11/10/2024 7:51 AM EDT Waived Testing in the ED is performed under the ED CLIA certificate #[id number]. Urbano Santos MD LAB BLOOD ORDERABLES Final Re sult Performing Organization Address City/[facility]/ZIP Co de Phone Number [facility]) [address] [place], [place] [id number] * (ABNORMAL) POCT glucose meter (11/09/2024 9:21 PM EDT) Glucose POC 112(H) 70 - 105 mg/dL 11/09/2024 9:32 PM EDT [facility] ([facility]) Comment:[email or web address] Blood Capillary blood specimen / Unknown 11/09/2024 9:21 PM EDT 11/09/2024 9:32 PM EDT [facility] ([facility]) - 11/09/2024 9:32 PM EDT Waived Testing in the ED is performed under the ED CLIA certificate #[id number]. Urbano Santos MD LAB BLOOD ORDERABLES Final Re sult [facility] ([facility]) [address] [place], [place] [id number] * (ABNORMAL) POCT glucose meter (11/09/2024 4:12 PM EDT) Glucose POC 205(H) 70 - 105 mg/dL 11/09/2024 4:23 PM EDT [facility] ([facility]) Comment:[email or web address] Blood Capillary blood specimen / Unknown 11/09/2024 4:12 PM EDT 11/09/2024 4:23 PM EDT Narrative [facility] ([facility]) - 11/09/2024 4:23 PM EDT Waived Testing in the ED is performed under the ED CLIA certificate #[id number]. us Urbano Santos MD LAB BLOOD ORDERABLES Final Re sult [facility] ([facility]) [address] [place] [address] * (ABNORMAL) CBC auto differential (11/09/2024 2:09 PM EDT) Auto WBC 5.31 4.00 - 10.60 10*3/uL 11/09/2024 2:40 PM EDT [facility] ([facility]) RBC 3.22(L) 3.80 - 5.00 10*6/uL 11/09/2024 2:40 PM EDT [facility] ([facility]) Hemoglobin 9.6(L) 12.0 - 15.0 g/dL 11/09/2024 2:40 PM EDT [facility] ([facility]) Hematocrit 28.6(L) 36.0 - 45.0 % 11/09/2024 2:40 PM EDT [facility] ([facility]) MCV 88.8 82.0 - 98.0 fL 11/09/2024 2:40 PM EDT [facility] ([facility]) MCH 29.8 27.0 - 33.0 pg 11/09/2024 2:40 PM EDT [facility] ([facility]) MCHC 33.6 32.0 - 35.0 g/dL 11/09/2024 2:40 PM EDT [facility] ([facility] RDW 14.5 11.5 - 15.0 % 11/09/2024 2:40 PM EDT [facility] ([facility]) Neutrophils % 68.7 40.0 - 72.0 % 11/09/2024 2:40 PM EDT [facility] ([facility] Lymphocytes % 20.0 20.0 - 45.0 % 11/09/2024 2:40 PM EDT [facility] ([facility]) Monocytes % 7.9 5.0 - 12.0 % 11/09/2024 2:40 PM EDT [facility] ([facility]) Eosinophils % 2.6 0.0 - 6.0 % 11/09/2024 2:40 PM EDT [facility] ([facility]) Basophils % 0.6 0.0 - 1.0 % 11/09/2024 2:40 PM EDT [facility] ([facility]) Neutrophils Absolute 3.65 1.60 - 7.60 10*3/uL 11/09/2024 2:40 PM EDT [facility] ([facility] Lymphocytes Absolute 1.06(L) 1.20 - 4.00 10*3/uL 11/09/2024 2:40 PM EDT [facility] ([facility]) Monocytes Absolute 0.42 0.10 - 1.00 10*3/uL 11/09/2024 2:40 PM EDT [facility] ([facility]) Eosinophils Absolute 0.14 0.00 - 0.50 10*3/uL 11/09/2024 2:40 PM EDT [facility] ([facility]) Basophils Absolute 0.03 0.00 - 0.20 10*3/uL 11/09/2024 2:40 PM EDT [facility] ([facility]) Platelets 262 150 - 400 10*3/uL 11/09/2024 2:40 PM EDT [facility] ([facility]) nRBC % 0.0 0 % 11/09/2024 2:40 PM EDT [facility] ([facility]) Immature Granulocytes % 0.2 0.0 - 1.0 % 11/09/2024 2:40 PM EDT [facility] ([facility]) Immature Granulocytes Absolute 0.01 0.00 - 0.20 10*3/uL 11/09/2024 2:40 PM EDT [facility] ([facility]) Blood Venous blood specimen / Unknown Existing Catheter / Unknown 11/09/2024 2:09 PM EDT 11/09/2024 2:15 PM EDT Shanna Lamas DO LAB BLOOD ORDERABLES Final Result [facility] ([facility]) [address] [place] [address] * Magnesium (11/09/2024 2:09 PM EDT) Magnesium 2.0 1.9 - 2.7 mg/dL 11/09/2024 2:46 PM EDT [facility] ([facility]) Blood Venous blood specimen / Unknown Existing Catheter / Unknown 11/09/2024 2:09 PM EDT 11/09/2024 2:15 PM EDT Result [facility] Shanna Lamas DO LAB BLOOD ORDERABLES Final Result Performing Organization Address City/[facility]/ZIP Co de Phone Number [facility] ([facility]) [address] [place] [address] * (ABNORMAL) Basic metabolic panel (11/09/2024 2:09 PM EDT) Sodium 138 136 - 145 mmol/L 11/09/2024 2:46 PM EDT [facility] ([facility]) Potassium 3.9 3.5 - 5.1 mmol/L 11/09/2024 2:46 PM EDT [facility] ([facility]) Chloride 105 98 - 107 mmol/L 11/09/2024 2:46 PM EDT [facility] ([facility]) CO2 27 21 - 31 mmol/L 11/09/2024 2:46 PM EDT [facility] ([facility]) BUN 14 7 - 25 mg/dL 11/09/2024 2:46 PM EDT [facility] ([facility]) Creatinine 0.57(L) 0.60 - 1.20 mg/dL 11/09/2024 2:46 PM EDT [facility] ([facility]) Glucose 100 70 - 100 mg/dL 11/09/2024 2:46 PM EDT [facility] ([facility]) Calcium 8.3(L) 8.6 - 10.3 mg/dL 11/09/2024 2:46 PM EDT [facility] ([facility]) Anion Gap 10 7 - 20 mmol/L 11/09/2024 2:46 PM EDT [facility] ([facility]) eGFR 121.5 >60.0 mL/min/1. 73m*2 11/09/2024 2:46 PM EDT [facility] ([facility]) Comment:[facility] s estimated glomerular filtration rate [...] BUN/Creatinine Ratio 24.6 10/17 2:46 PM EDT [facility] ([facility]) Blood Venous blood specimen / Unknown Existing Catheter / Unknown 11/09/2024 2:09 PM EDT 11/09/2024 2:15 PM EDT us Shanna Lamas DO LAB BLOOD ORDERABLES Final Result [facility]) [address] [place], [place] [id number] * High Sensitivity Troponin I (11/09/2024 2:09 PM EDT) High Sensitivity Troponin I 4 <15 ng/L 11/09/2024 2:46 PM EDT [facility] ([facility]) Blood Venous blood specimen / Unknown Existing Catheter / Unknown 11/09/2024 2:09 PM EDT 11/09/2024 2:15 PM EDT us Wali Collins MD LAB BLOOD ORDERABLES Final Result [facility]) [address] [place], [place] [id number] * ECG 12 lead (11/09/2024 12:39 PM EDT) Ventricular Rate 86 BPM GE MUSE Atrial Rate 86 BPM GE MUSE ND Interval 140 ms GE MUSE QRS DURATION 90 ms GE MUSE QT Interval 394 ms GE MUSE QTC CALCULATION(BAZE TT) 471 ms GE MUSE P [place] 51 degrees GE MUSE R-[place] 17 degrees GE MUSE T Wave [place] 37 degrees GE MUSE 11/09/2024 12:1 6 PM EDT 11/09/2024 2:00 PM EDT Impressions GE MUSE - 11/09/2024 2:00 PM EDT Normal sinus rhythm Minimal voltage criteria for LVH, may be normal variant ( Dunbar product ) Borderline ECG When compared with ECG of 07-NOV-2024 11:33, No significant change was found Confirmed by Juan SIERRA, JONELLE Harmon ([id number]) on 11/09/2024 2:00:39 PM Narrative Procedure Note Jonelle Sierra MD - 11/09/2024 IMPRESSION: Normal sinus rhythm Minimal voltage criteria for LVH, may be normal variant ( Dunbar product ) Borderline ECG When compared with ECG of 07-NOV-2024 11:33, No significant change was found Confirmed by Juan SIERRA, JONELLE Harmon ([id number]) on 11/09/2024 2:00:39 PM us Wali Collins MD ECG ORDERABLES Final Resu lt GE MUSE documented in this encounter Visit Diagnoses Diagnosis Chest pain- Primary Unspecified chest pain Chest pain Unspecified chest pain Chronic narcotic use Type 2 diabetes mellitus without complication, without long-term current use of insulin (CMS/HCC) 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 [...] of breath, Starting on Wed11/09/24 at 1319 aspirin chewable tablet 81 mg 81 mg, oral, Daily with breakfast, First dose on Wed11/10/24 at 0800, For 99 days Given 11/13/2024 9:05 AM EDT 81 mg Given 11/12/2024 8:39 AM EDT 81 mg Given 11/11/2024 9:43 AM EDT 81 mg clopidogrel (Plavix) tablet 75 mg 75 mg, oral, Daily, First dose on Wed11/09/24 at 1230, For 99 days Given 11/13/2024 9:04 AM EDT 75 mg Given 11/12/2024 8:39 AM EDT 75 mg Given 11/11/2024 9:43 AM EDT 75 mg colchicine split tablet 0.3 mg 0.3 mg, oral, Daily, First dose on Wed11/11/24 at 1130, For 1 dose Given 11/11/2024 [...] oral, 2 times daily, First dose on [facility] 11/09/24 at 2200, For 99 days Given 11/13/2024 9:05 AM EDT 100 mg Given 11/12/2024 9:41 PM EDT 100 mg Given 11/12/2024 8:39 AM EDT 100 mg enoxaparin (Lovenox) syringe 40 mg 40 mg, subcutaneous, Every 24 hours scheduled, First dose on [facility] 11/09/24 at 1345, For 99 days, Indications: venous thrombosisIndications:venous thrombosis Given 11/10/2024 10:31 AM EDT 40 mg Left Lower Abdomen Given 11/09/2024 3:04 PM EDT 40 mg Ri ght Upper Arm (Back) escitalopram (Lexapro) tablet 20 mg 20 mg, oral, Daily, First dose on [facility] 11/09/24 at 1230, For 99 days Given 11/13/2024 9:04 AM EDT 20 mg Given 11/12/2024 8:39 AM EDT 20 mg Given 11/11/2024 9:43 AM EDT 20 mg fentaNYL (Duragesic) 12 mcg/hr 1 patch 1 patch, transdermal, Administer over 72 Hours, Every 72 hours, First dose on [facility] 11/09/24 at 1430, For 99 days, [...] IV fluids or tube feeding bolus) HYDROcodone-acetaminophen ([place]) 5-325 mg per tablet 2 tablet 2 tablet, oral, Every 4 hours PRN, moderate-severe pain (4-10 pain score), Starting on [facility] 11/09/24 at 1227, For 99 days Given 11/10/2024 [...] times daily with meals, First dose on [facility] 11/09/24 at 1715, For 99 days, BG [...] Every 6 hours scheduled, First dose on [facility] 11/11/24 at 0000, For 99 days, BG [...] mL, intravenous, Once in imaging, Starting on [facility] 11/11/24 at 2056, For 1 dose Given [...] 25 mg, oral, Daily, First dose on [facility] 11/09/24 at 1230, For 99 days, Do not crush or chew. Given 11/11/2024 9:43 AM EDT 25 mg Given 11/10/2024 10:30 AM EDT 25 mg Given 11/09/2024 1:12 PM EDT 25 mg metoprolol succinate XL (Toprol-XL) 24 hr tablet 50 mg 50 mg, oral, Daily, First dose (after last modification) on 11/12/24 at 1000, For 96 doses, Do not [...] [facility] 11/09/24 at 1229, For 99 days sucralfate (Carafate) [...] oral, 2 times daily, First dose on [facility] 11/09/24 at 1230, For 99 days, Crushing/splitting [...] 6 hours PRN, nausea, vomiting, Starting on [facility] 11/11/24 at 1845, For 99 days, Trimethobenzamide [...] 0839 (Given - Provider: Patricia Butt RN) 09 (Given - Provider: Patricia Butt RN) clopidogrel [...] oral, Every other day, First dose on 11/12/24 at 1000, For 99 days 0905 (Given - Provider: Patricia Butt RN) docusate sodium (Colace) capsule 100 mg 100 mg, oral, 2 times daily, First dose on [facility] 11/09/24 at 2200, For 99 days 0943 (Given - Provider: Stacie Keyes RN)2222 (Given - Provider: Diamond Cardoza RN) 08 (Given - Provider: Patricia Butt RN)2141 (Given - Provider: Diamond Cardoza RN) 0905 (Given - Provider: Patricia Butt RN) escitalopram (Lexapro) tablet 20 mg 20 mg, oral, Daily, First dose on Wed11/09/24 at 1230, For 99 days 0943 (Given - Provider: Stacie Keyes RN) 0839 (Given - Provider: Patricia Butt RN) 0904 (Given - Provider: Patricia Butt RN) fentaNYL (Duragesic) 12 mcg/hr 1 patch 1 patch, transdermal, Administer over 72 Hours, Every 72 hours, First dose on Wed11/09/24 at 1430, For 99 days, Do not [...] Hours, Every 72 hours, First dose on Wed11/09/24 at 1430, For 99 days, Do not [...] Once in imaging, Starting on 11/11/24 at 6, For 1 dose 2055 (Given - Provider: [...] on Wed11/09/24 at 1230, For 99 days 1306 (Given [...] on Wed11/09/24 at 1400, For 99 days 0943 (Given [...] 25 mg, oral, Daily, First dose on [facility] 11/09/24 at 1230, For 99 days, Do not crush or chew. 0943 (Given - Provider: Stacie Keyes RN) metoprolol succinate XL (Toprol-XL) 24 hr tablet 50 mg 50 mg, oral, Daily, First dose (after last modification) on [place] 11/12/24 at 1000, For 96 doses, Do not crush or chew. 0839 (Given - Provider: Patricia Butt RN) 0904 (Given - Provider: Patricia Butt RN) mirtazapine (Remeron) tablet 45 mg 45 mg, oral, Nightly, First dose on [facility] 11/09/24 at 2200, For 99 days 2222 (Given - Provider: Diamond Cardoza RN) 2140 (Given - Provider: Diamond Cardoza RN) morphine injection 1 mg (COMPLETED) 1 mg, intravenous, Once, On 11/11/24 at 1830, For 1 dose 1832 (Given - Provider: Stacie Keyes RN) pantoprazole [...] 0904 (Given - Provider: Patricia Butt RN) rosuvastatin (Crestor) tablet 40 mg 40 mg, oral, Nightly, First dose on [facility] 11/09/24 at 2200, For 99 days 2222 (Given - Provider: Diamond Cardoza RN) 2140 (Given - Provider: Diamond Cardoza RN) sucralfate [...] Diamond Cardoza RN)1421 (Given - Provider: Patricia Butt RN)2141 (Given [...] mild pain (1-3 pain score), Starting on Wed11/09/24 at 1227, For 99 days albuterol 90 [...] Diamond Cardoza RN)1217 (Given - Provider: Patricia Butt RN)1821 (Given - Provider: Patricia Butt RN) 0010 (Given - Provider: Diamond Cardoza RN)0652 (Given - Provider: Diamond Cardoza RN)1304 (Given - Provider: Patricia Butt RN) glucose chewable tablet 24 g(Linked Group [...] Diamond Cardoza RN)1126 (Given - Provider: Denis Choe, RN)1527 (Given - Provider: Stacie Keyes RN)1945 (Given - Provider: Diamond Cardoza RN) 0032 (Given - Provider: Diamond Cardoza RN)0642 (Given - Provider: Diamond Cardoza RN)1057 (Given - Provider: Patricia Butt RN)1509 (Given - Provider: Vonda Beverly RN)1908 (Given - Provider: Patricia Butt RN) 0303 (Given - Provider: Fern Pierce, RN)0722 (Given - Provider: Patricia Butt RN)1108 [...] Cardoza RN) 0433 (Given - Provider: Diamond Nani, RN)0839 (Given - Provider: Patricia Butt RN)1325 (Given - Provider: Patricia Butt, RN)1746 (Given - Provider: Patricia Butt RN) [...] days documented in this encounter Care Teams [employer] Technician Relationship Specialty Start Date End Date Thomas Calix MD [address] [place], [place] [id number] [place] [address] PCP - General Family Medicine 08/17/24 documented as of this encounter
[2024-11-14] VITALS (43 sets, daily range): BP systolic 100–118; BP diastolic 61–65; PULSE 61–94; TEMP 36.6; O2SAT 94–100; BMI 29.1
--- NOTE | 2024-11-14 16:09 | ECG_ITS ---
[facility] Test Date: 2024-11-14 Pat Name: JUAN KONG Department: Room: - Gender: Female Cabinet Worker: : 1990 Requested By: [id number] Order Number: [id number] [place] MD: JAMES HODGES M.D. Measurements Intervals [place] Rate: 69 P: 76 [place]: 154 QRS: 80 QRSD: 90 T: 84 QT: 402 QTc: 420 Interpretive Statements 1100 Sinus rhythm 9110 normal ECG Compared to ECG 10/30/2024 15:31:37 No significant changes Electronically Signed On 11-14-2024 20:01:07 EDT by JAMES HODGES M.D.
--- NOTE | 2024-11-14 16:19 | PC.NURSE ---
Right chest Hodges cath accesses, flushed with saline and then blood drawn for waste and then blood draw handed to lab. Flushed again with saline and waiting for pharmacy to approve the IV meds.
[2024-11-14 16:25] LABS: Hematocrit 27.8 % (36.0-48.0); Hemoglobin 9.2 g/dL (12.0-16.0); Immature Granulocytes Abs Auto 0.00 10^3/uL (0.00-0.03); Immature Granulocytes Pct Auto 0.0 % (0.0-0.5); Lymphocytes Absolute Auto 1.7 10^3/uL (1.2-3.8); Mean Corpuscular HGB Conc 33.1 g/dL (29.9-35.2); Mean Corpuscular Hemoglobin 30.3 pg (26.7-34.0); Mean Corpuscular Volume 91.4 fL (81.0-99.0); Platelet Count 296 10^3/uL (150-450); Red Blood Count 3.04 10^6/uL (4.20-5.40); White Blood Count 3.6 10^3/uL (4.0-11.0)
[2024-11-14] MEDS: ASPIRIN 81 MG TAB.CHEW 324 MG PO (16:29)
[2024-11-14] MEDS: PROCHLORPERAZINE 10 MG/2 ML VIAL IV (16:30)
[2024-11-14] MEDS: MORPHINE SULFATE 4 MG/ML VIAL IV (16:36)
[2024-11-14 16:38] LABS: Anion Gap 14.5; Blood Urea Nitrogen 12.0 mg/dL (7.0-18.0); Calcium 7.9 mg/dL (8.5-10.1); Carbon Dioxide 25.3 mmol/L (21.0-32.0); Chloride 108 mmol/L (98-107); Estimated GFR (African America >60 (>=60 mL/min/1.73m^2); Estimated GFR (Non-African Ame >60 (>=60 mL/min/1.73m^2); Glucose 86 mg/dL (74-106); Potassium 3.8 mmol/L (3.5-5.1); Sodium 144 mmol/L (136-145)
[2024-11-14] MEDS: DIPHENHYDRAMINE HCL 50 MG/ML VIAL 25 MG IVP (16:40)
--- OUTSIDE RECORDS SUMMARY | 2024-11-14 16:43 | XMS_ITS | Encounter Summary ---
Author Organization [facility] Address [address] [place] [address] Care Team Providers Care Jewelry Appraiser Name Role Phone Anna Mendez CASHIER ASSOCIATE Unavailable Unallocated, Noms Provider Primary Care Provi pako Tj Najera Unavailable [phone] Thomas Alas MD Primary Care Provider [phone] Encounter Details Date Type Department Care Team (Late st Contact Info) Description 10/30/2022 Abstract [facility] [address] [place] [address] Tj Najera, PA [address] [facility] [place] [address] Social History Tobacco Use Types [...] on filedocumented in this encounter Care Teams Jewelry Appraiser Relationship Specialty Start Date End Date Unallocated, Noms Provider, [address] [place] [address] PCP - General 07/23/22 12/13/23 Tj Najera PA [address] [place] [address] PCP - Medical [facility] 07/16/22 04/24/23 Thomas Alas MD [address] [place] [address] PCP - General Family Medicine 12/14/23 Anna Mendez NP [address] [place] [address] Referring Physician Family Medicine 07/23/22 documented as of this encounter
--- OUTSIDE RECORDS SUMMARY | 2024-11-14 16:43 | XMS_ITS | Encounter Summary ---
Author Organization [facility] Address [address] [place] [address] Care Team Providers Care Special Inspector Name Role Phone Anna Mendez TELEGRAPH OFFICE ROUTE AIDE Unavailable Unallocated, Noms Provider Primary Care Provi pako Tj Najera PA Unavailable [phone] Thomas Alas MD Primary Care Provider [phone] Encounter Details Date Type Department Care Team (Late st Contact Info) Description 09/07/2022 Abstract [facility] [address] [place] [address] Tj Najera, PA [address] [facility] [place] [address] Social History Tobacco Use Types [...] on filedocumented in this encounter Care Teams Special Inspector Relationship Specialty Start Date End Date Unallocated, Noms Provider, [address] [place] [address] PCP - General 07/23/22 12/13/23 Tj Najera PA [address] [place] [address] PCP - Medical [facility] 07/16/22 04/24/23 Thomas Alas MD [address] [place] [address] PCP - General Family Medicine 12/14/23 Anna Mendez NP [address] [place] [address] Referring Physician Family Medicine 07/23/22 documented as of this encounter
--- OUTSIDE RECORDS SUMMARY | 2024-11-14 16:43 | XMS_ITS | Encounter Summary ---
Author Organization [facility] Address [address] [place] [address] Care Team Providers Care After School Counselor Name Role Phone VanessaAnna hendricks WIDE PIECE GOODS INSPECTOR Unavailable Unallocated, Noms Provider Primary Care Provi pako Tj Najera Unavailable [phone] Thomas Alas MD Primary Care Provider [phone] Encounter Details Date Type Department Care Team (Late st Contact Info) Description 10/02/2022 Abstract [facility] [address] [place] [address] Raegan Frye PA [address] [place], [place] [address] Social History Tobacco Use Types Packs/Day Years [...] on filedocumented in this encounter Care Teams After School Counselor Relationship Specialty Start Date End Date Unallocated, [place] [address] PCP - General 07/23/22 12/13/23 Tj Najera PA [address] [place] [address] PCP - Medical [facility] 07/16/22 04/24/23 Thomas Alas MD [address] [place] [address] PCP - General Family Medicine 12/14/23 Anna Mendez NP [address] [place] [address] Referring Physician Family Medicine 07/23/22 documented as of this encounter
--- OUTSIDE RECORDS SUMMARY | 2024-11-14 16:43 | XMS_ITS | Encounter Summary ---
Author Organization [facility] Address [address] [place] [address] Care Team Providers Care Commissioned Fire Officer Name Role Phone VanessaAnna hendricks HOSPITALITY ASSOCIATE Unavailable Unallocated, Noms Provider Primary Care Provi pako Tj Najera Unavailable [phone] Thomas Alas MD Primary Care Provider [phone] Encounter Details Date Type Department Care Team (Late st Contact Info) Description 11/20/2022 Abstract [facility] [address] [place] [address] Tj Najera, PA [address] [facility] [place] [address] Social History Tobacco Use Types [...] on filedocumented in this encounter Care Teams Commissioned Fire Officer Relationship Specialty Start Date End Date Unallocated, Noms Provider, [address] [place] [address] PCP - General 07/23/22 12/13/23 Tj Najera PA [address] [place] [address] PCP - Medical [facility] 07/16/22 04/24/23 Thomas Alas MD [address] [place] [address] PCP - General Family Medicine 12/14/23 Anna Mendez NP [address] [place] [address] Referring Physician Family Medicine 07/23/22 documented as of this encounter
--- OUTSIDE RECORDS SUMMARY | 2024-11-14 16:43 | XMS_ITS | Encounter Summary ---
Author Organization [facility] Address [address] [place] [address] Care Team Providers Care Crown Assembly Machine Operator Name Role Phone Anna Mendze BREAKDOWN WORKER Unavailable Unallocated, Noms Provider Primary Care Provi pako Tj Najera Unavailable [phone] Thomas Alas MD Primary Care Provider [phone] Encounter Details Date Type Department Care Team (Late st Contact Info) Description 10/05/2022 Abstract [facility] [address] [place] [address] Tj Najera, PA [address] [facility] [place] [address] Social History Tobacco Use Types [...] on filedocumented in this encounter Care Teams Crown Assembly Machine Operator Relationship Specialty Start Date End Date Unallocated, Noms Provider, [address] [place] [address] PCP - General 07/23/22 12/13/23 Tj Najera PA [address] [place] [address] PCP - Medical [facility] 07/16/22 04/24/23 Thomas Alas MD [address] [place] [address] PCP - General Family Medicine 12/14/23 Anna Mendez NP [address] [place] [address] Referring Physician Family Medicine 07/23/22 documented as of this encounter
--- OUTSIDE RECORDS SUMMARY | 2024-11-14 16:44 | XMS_ITS | Encounter Summary ---
Author Organization [facility] tem Address [id number] [address] [place] [address] Care Team Providers Care Asbestos Abatement Worker Name Role Phone No Pcp, No Pcp Primary Care Provider Unavailabl e Encounter Details Date Type Department Care Team (Late st Contact Info) Description 09/28/2017 Orders Only Maternal- Medicine at [facility] [address] [place] [id number] Holger Alcala MD [address] [place] [address] Social History Tobacco Use Types Packs/Day Years [...] on filedocumented in this encounter Care Teams Asbestos Abatement Worker Relationship Specialty Start Date End Date No Pcp, [place] [address] PCP - General Family Medicine 09/22/17 documented as of this encounter
--- OUTSIDE RECORDS SUMMARY | 2024-11-14 16:44 | XMS_ITS | Encounter Summary ---
Author Organization [facility] tem Address [id number] [address] [place] [address] Care Team Providers Care Assistant Community Manager Name Role Phone No Pcp, No Pcp Primary Care Provider Unavailabl e Reason for Visit * Reason Comments Med Refill Encounter Details Date Type Department Care Team (Late st Contact Info) Description 09/17/2019 Refill Maternal- Medicine at [facility] [address] [place] [address] Marc Martines MD [address] [facility], [address] [place] [address] Gestational diabetes mellitus (GDM) controlled on oral [...] as of this encounter Care Teams Assistant Community Manager Relationship Specialty Start Date End Date No Pcp, [place] [address] PCP - General Family Medicine 09/22/17 documented as of this encounter
--- OUTSIDE RECORDS SUMMARY | 2024-11-14 16:44 | XMS_ITS | Patient Health Record ---
Author Organization [facility] in [place] Address [address] [place] [address] Care Team Providers Care Religious Education Director Name Role Phone Brandyn Alas Primary Care Provider Allergies Allergen (clinical drug ingredient) Drug/Non Drug Allergy documented on EMR Reaction Allergy Type Onset Date Status codeine Codeine vomiting Drug Allergy Active Non-steroidal anti-inflammatory agent (FN) NSAIDs Gastric bypass Drug Allergy Active Results Component Value Reference Range Notes Blood Culture 1 Reviewed date:09/24/2024 07:41:50 PM Interpretation: Performing Lab: Notes/Report: The [facility] , Blood Culture 1 See Below For Report NG5D NO GROWTH AT 5 DAYS.^NO GROWTH AT 5 DAYS. Blood Culture 1 Performing Lab: see note ML - [facility] LB CBC AUTO DIFF Reviewed date:08/10/2024 07:02:35 PM Interpretation: Performing Lab: Notes/Report: The [facility] , White Blood Count 9.3 4.0-11.0 10 [...] 3/uL Performing Lab: see note ML - [facility] LB CBC AUTO DIFF Reviewed date:11/20/2023 08:26:20 PM Interpretation: Performing Lab: Notes/Report: [facility] , White Blood Count 3.7 4.0-11.0 [...] 3/uL Performing Lab: see note ML - [facility] LB PROF 14(COMP METB) Reviewed date:11/20/2023 08:26:20 PM Interpretation: Performing Lab: Notes/Report: The [facility] , Sodium 138 136-145 mmol/L Potassium 3.8 [...] Performing Lab: see note ML - [facility] LB UA (CLEAN or CATCH) REGISTERED NURSES or M ICRO IF IND. Reviewed date:11/20/2023 08:26:20 PM Interpretation: Performing Lab: Notes/Report: The [facility] , Color Urine YELLOW YELLOW Clarity Urine CLEAR CLEAR Specific [place] Urine 1.015 1.005-1.025 pH Urine 7.0 5.0-9.0 Protein Urine NEGATIVE NEG/TRACE mg/dL Glucose Urine UA NEGATIVE NEGATIVE mg/dL Bilirubin Urine NEGATIVE NEGATIVE Ketones Urine NEGATIVE NEGATIVE mg/dL Blood Urine NEGATIVE NEGATIVE Nitrite Urine NEGATIVE NEGATIVE Urobilinogen Urine 0.2 0.2-1.0 EU/dL Leukocyte Esterase Urine NEGATIVE NEGATIVE Urine Microscopic Indicated NO Performing Lab: see note - [facility] LB Anaerobic Culture Reviewed date:11/25/2023 07:16:42 PM Interpretation: Performing Lab: Notes/Report: [facility] , Anaerobic Culture See Below For Report Anaerobic Culture Anaerobic Culture No anaerobic growth in 72 hours. Anaerobic Culture Performing Lab: see note LC - [facility] LB Aerobic Culture Reviewed date:11/25/2023 [...] Tobramycin S F Aerobic Culture Performed at: [facility] Aerobic Culture Organism: Gram negative jeffery : O:GNR Isolated O:PSAV Isolated Organism: 2.2 Antibiotic Interpretation SANDHYA Status Amikacin Amikacin S F Cefepime Cefepime S F Ceftazidime Ceftazidime S F Gentamicin Gentamicin S F Imipenem Imipenem I F Levofloxacin Levofloxacin R F Meropenem Meropenem S F Piperacillin Piperacillin S F Ticarcillin Ticarcillin S F Tobramycin Tobramycin S F Aerobic Culture [address], [place] [id number] Aerobic Culture Organism: Gram negative jeffery : O:GNR Isolated O:PSAV Isolated Organism: 2.2 Antibiotic Interpretation SANDHYA Status Amikacin Amikacin S F Cefepime Cefepime S F Ceftazidime Ceftazidime S F Gentamicin Gentamicin S F Imipenem Imipenem I F Levofloxacin Levofloxacin R F Meropenem Meropenem S F Piperacillin Piperacillin S F Ticarcillin Ticarcillin S F Tobramycin Tobramycin S F Aerobic Culture Horse Racetrack Manager: Thierno Almanza PhD, Phone: [phone] Aerobic Culture Organism: Gram negative jeffery : [...] LC - [facility] LB SEE REPORT - Defective Cigarette Slitter Id information not found for OBX-specific associate producer legend CBC AUTO DIFF Reviewed date:11/25/2023 07:16:42 PM Interpretation: Performing Lab: Notes/Report: The [facility] , White Blood Count 5.5 4.0-11.0 10 [...] 10 3/uL Performing Lab: see note - [facility] LB FREE T3 Reviewed date:11/25/2023 07:16:42 PM Interpretation: Performing Lab: Notes/Report: [facility] DROP OFF [facility] , Free T3 2.07 2.18-3.98 pg/mL Performing Lab: see note - [facility] LB PROF 14(COMP METB) Reviewed date:11/25/2023 07:16:42 PM Interpretation: Performing Lab: Notes/Report: [facility] DROP OFF [facility] , Sodium 139 136-145 mmol/L Potassium [...] Ratio 1.1 Performing Lab: see note - [facility] LB PROLACTIN Reviewed date:11/26/2023 12:56:46 PM Interpretation: Performing Lab: Notes/Report: [facility] , Prolactin 8.4 4.8-33.4 ng/mL Performing Lab: see note LC - [facility] LB T4 Reviewed date:11/25/2023 07:16:42 PM Interpretation: Performing Lab: Notes/Report: [facility] DROP OFF [facility] , T4 Thyroxine 7.60 4.80-13.90 ug/dL Performing Lab: see note - [facility] LB TSH Reviewed date:11/25/2023 07:16:42 PM Interpretation: Performing Lab: Notes/Report: [facility] DROP OFF The [facility] , Thyroid Stimulating Hormone 1.315 0.358-3.740 uIU/mL Performing Lab: see note - [facility] LB Testosterone Reviewed date:11/26/2023 12:56:46 PM Interpretation: Performing Lab: Notes/Report: [facility] , Testosterone <3 8-60 ng/dL Performing Lab: see note [facility] LB Progesterone Reviewed date:11/26/2023 12:56:46 PM Interpretation: Performing Lab: Notes/Report: [facility] , Progesterone <0.1 . ng/mL Follicular phase 0.1 - 0.9 Luteal phase 1.8 - 23.9 Ovulation phase 0.1 - 12.0 First trimester 11.0 - 44.3 Second trimester 25.4 - 83.3 Third trimester 58.7 - 214.0 Postmenopausal 0.0 - 0.1 Performed at: [facility] [address] [id number] Horse Racetrack Manager: Daron Almanza PhD, Phone: [phone] Performing Lab: see note [facility] LB FSH Reviewed date:11/26/2023 12:56:46 PM Interpretation: Performing Lab: Notes/Report: [facility] , FSH 3.4 . mIU/mL Adult Female Range Follicular phase 3.5 - 12.5 Ovulation phase 4.7 - 21.5 Luteal phase 1.7 - 7.7 Postmenopausal 25.8 - 134.8 Performing Lab: see note [facility] LB Estradiol Reviewed date:11/26/2023 12:56:46 PM Interpretation: Performing Lab: Notes/Report: [facility] , Estradiol 170.0 . pg/mL Adult Female Range Follicular phase 12.5 - 166.0 Ovulation phase 85.8 - 498.0 Luteal phase 43.8 - 211.0 Postmenopausal <6.0 - 54.7 1st trimester 215.0 - >4300.0 Kamran ECLIA methodology Performing Lab: see note [facility] LB CBC AUTO DIFF Reviewed date:12/22/2023 09:03:29 PM Interpretation: Performing Lab: Notes/Report: HOME HEALTH ADROP OFF The [facility] , White Blood Count 4.9 4.0-11.0 10 [...] 10 3/uL Performing Lab: see note - [facility] LB GLYCOHEMOGLOBIN A1C Reviewed date:12/22/2023 09:03:29 PM Interpretation: Performing Lab: Notes/Report: HOME HEALTH ADROP OFF The [facility] , Glycohemoglobin A1C 4.8 4.5-6.2 % ADA RECOMMENDED LIMIT 4.0 - 6.0 ADA THERAPEUTIC TARGET < 7.0 ACTION SUGGESTED > 7.0 Estimated Average Glucose 91 Performing Lab: see note - [facility] LB LAB TESTING Reviewed date:12/31/2023 06:29:26 AM Interpretation: Performing Lab: Notes/Report: [id number] Fatty Acid Profile, Essential [facility] , Miscellaneous Test COMMENT . Test Ordered: [id number] Fatty Acid Profile, Essential Interp, Fatty Acids Profile SP Normal Y8 Reference Range: . Normal fatty acid profile. Results reviewed and interpreted by Doris Odonnell, PhD, [facility] INTERPRETIVE INFORMATION: Fatty Acids Profile, Essential Ser/Plas This test does not screen for disorders of peroxisomal biogenesis/function. This test was developed and its performance characteristics determined by [facility]. It has not been cleared or approved [...] Acid, C18:2w6 3001 nmol/mL Y8 Reference Range: 6586-6980 a-Linolenic Acid, C18:3w3 71 nmol/mL Y8 Reference Range: 20-200 r-g-Xesuzbktf C20:3w6 198 nmol/mL Y8 Reference Range: 45-340 g-Linolenic Acid, C18:3w6 104 nmol/mL Y8 Reference Range: 10-120 [place] Acid, C20:3w9 27 nmol/mL Y8 Reference Range: 1-35 Myristic Acid, C14:0 123 nmol/mL Y8 Reference Range: 20-520 Nervonic Acid, C24:1w9 116 nmol/mL Y8 Reference Range: 35-145 Oleic Acid, C18:1w9 2918 nmol/mL Y8 Reference Range: 740-3900 Palmitic Acid, C16:0 3079 nmol/mL Y8 Reference Range: 8547-1257 Palmitoleic Acid, C16:1w7 218 nmol/mL Y8 Reference [...] Reference Range: 4.5-15.0 EER Fatty Acids Profile, Ess See Note Y8 Reference Range: . Authorized individuals can access the [employer] Enhanced Report using the following link: [email or web address] . Y8 Reference Range: . Performed at: Y - [facility] [address] [id number] Horse Racetrack Manager: Kirt Murphy [facility], Phone: [phone] Performed at: - [facility] [id number] Horse Racetrack Manager: Daron Almanza PhD, Phone: [phone] Performing Lab: see note LC - [facility] LB MAGNESIUM Reviewed date:12/22/2023 09:03:29 PM Interpretation: Performing Lab: Notes/Report: HOME HEALTH ADROP OFF [facility] , Magnesium 2.0 1.8-2.4 mg/dL Performing Lab: see note ML - [facility] LB PHOSPHORUS Reviewed date:12/22/2023 09:03:29 PM Interpretation: Performing Lab: Notes/Report: HOME HEALTH ADROP OFF [facility] , Phosphorus 2.0 2.6-4.7 mg/dL Performing Lab: see note ML - [facility] LB PROF 14(COMP METB) Reviewed date:12/22/2023 09:03:29 PM Interpretation: Performing Lab: Notes/Report: HOME HEALTH ADROP OFF The [facility] , Sodium 142 136-145 mmol/L Potassium 4.2 [...] Performing Lab: see note ML - [facility] LB Testosterone Reviewed date:01/11/2024 02:35:19 PM Interpretation: Performing Lab: Notes/Report: [facility] , Testosterone <3 8-60 ng/dL Performed at: - [facility] [address] [id number] Horse Racetrack Manager: Daron Almanza PhD, Phone: [phone] Performing Lab: see note LC - [facility] LB XR abdomen 1V Reviewed date:01/17/2024 01:32:20 PM Interpretation: Performing Lab: Notes/Report: Source Facility: [facility]-[address] [place] [address] [place] [address] XRay Report Signed Patient: JUAN GARCIA MR#: [id number] : 1990 Acct:[id number] Age/Sex: 33 / F ADM Date: 01/17/24 Loc: ER Attending Dr: Ordering Physician: Leslie Terrazas M.D. Date of Service: 01/17/24 Procedure(s): XR abdomen 1V Accession Number(s): [id number] cc: Britt Alas M.D.; Leslie Terrazas M.D. The [place] [id number] Patient Name: JUAN GARCIA MRN: [id number] date: 1990 Sex: F Assigned Patient Location: ER Current Patient Location: ER Accession/Order Number: [id number] Exam Date: 01/17/2024 12:55 Report Date: 01/17/2024 [...] Signed By: 01/17/24 1329 DD/ 1326 TD/TT: Tower Erector: MAGNESIUM Reviewed date:01/20/2024 03:46:41 PM Interpretation: Performing Lab: Notes/Report: [facility] DROP OFF The [facility] , Magnesium 1.7 1.8-2.4 mg/dL Performing Lab: see note ML - [facility] LB PHOSPHORUS Reviewed date:01/20/2024 03:46:41 PM Interpretation: Performing Lab: Notes/Report: [facility] DROP OFF The [facility] , Phosphorus 3.5 2.6-4.7 mg/dL Performing Lab: see note ML - [facility] LB PROF 14(COMP METB) Reviewed date:01/20/2024 03:46:41 PM Interpretation: Performing Lab: Notes/Report: [facility] DROP OFF The [facility] , Sodium 143 136-145 mmol/L Potassium 4.0 [...] Globulin Ratio 1.3 Performing Lab: see note - [facility] LB IRON AND TIBC Reviewed date:01/31/2024 02:12:13 PM Interpretation: Performing Lab: Notes/Report: [facility] DROP OFF The [facility] , Iron 101.0 50.0-170.0 ug/dL Total Iron Binding Capacity 257.0 250.0-450.0 ug/dL Percent Iron Saturation 39.3 Performing Lab: see note ML - [facility] LB Transferrin Reviewed date:02/01/2024 12:16:29 PM Interpretation: Performing Lab: Notes/Report: [facility] , Transferrin 210 192-364 mg/dL Performed at: - [facility] [address] [id number] Horse Racetrack Manager: Daron Almanza PhD, Phone: [phone] Performing Lab: see note - [facility] LB CBC AUTO DIFF Reviewed date:02/16/2024 03:19:17 PM Interpretation: Performing Lab: Notes/Report: [facility] , White Blood Count 7.7 4.0-11.0 [...] 10 3/uL Performing Lab: see note - [facility] LB MAGNESIUM Reviewed date:02/16/2024 03:19:17 PM Interpretation: Performing Lab: Notes/Report: HOME HEALTH NURSE [facility] , Magnesium 1.8 1.8-2.4 mg/dL Performing Lab: see note - [facility] LB PHOSPHORUS Reviewed date:02/16/2024 03:19:17 PM Interpretation: Performing Lab: Notes/Report: HOME HEALTH NURSE [facility] , Phosphorus 3.3 2.6-4.7 mg/dL Performing Lab: see note - [facility] LB PROF 14(COMP METB) Reviewed date:02/16/2024 03:19:17 PM Interpretation: Performing Lab: Notes/Report: HOME HEALTH NURSE [facility] , Sodium 142 136-145 mmol/L Potassium [...] 1.2 Performing Lab: see note ML - [facility] LB CBC AUTO DIFF Reviewed date:03/29/2024 09:46:23 PM Interpretation: Performing Lab: Notes/Report: [facility] , White Blood Count 8.6 4.0-11.0 [...] 10 3/uL Performing Lab: see note - [facility] LB PROF 14(COMP METB) Reviewed date:03/29/2024 09:46:23 PM Interpretation: Performing Lab: Notes/Report: The [facility] , Sodium 143 136-145 mmol/L Potassium 3.8 [...] Performing Lab: see note ML - [facility] LB CBC AUTO DIFF Reviewed date:03/30/2024 07:56:16 PM Interpretation: Performing Lab: Notes/Report: The [facility] , White Blood Count 4.6 4.0-11.0 10 [...] Performing Lab: see note ML - [facility] LB CBC AUTO DIFF Reviewed date:06/21/2024 12:59:38 PM Interpretation: Performing Lab: Notes/Report: The [facility] , White Blood Count 5.6 4.0-11.0 10 [...] 3/uL Performing Lab: see note ML - [facility] ECG 12 lead Reviewed date:06/21/2024 08:02:33 PM Interpretation: Performing Lab: Notes/Report: Source Facility: [place] [address] Electrocardiograph Report Signed Patient: JUAN GARCIA MR#: [id number] : 1990 Acct:[id number] Age/Sex: 34 / F ADM Date: 06/21/24 Loc: ER Attending Dr: Ordering Physician: Leslie Terrazas M.D. Date of Service: 06/21/24 Procedure(s): ECG 12 lead Accession Number(s): [id number] cc: [facility] Test Date: 2024-06-21 Pat Name: JUAN GARCIA Department: Room: - Gender: Female Wharfinger Chief: : 1990 Requested By: BRITT ALAS Order Number: [id number] Clarice MD: JAMES HODGES M.D. Measurements Intervals Blodgett Rate: 80 P: 54 AL: 140 QRS: 47 QRSD: 80 T: 46 QT: 384 QTc: 420 Interpretive Statements 1100 Sinus rhythm 9110 normal ECG Compared to ECG 09/23/2023 18:36:37 No significant changes Electronically Signed On 06-21-2024 18:14:03 EDT by JAMES HODGES M.D. Dictated By: JAMES HODGES Signed By: 06/21/24 1814 DD/ 1124 TD/TT: Tower Erector: LACTATE or LACTIC ACID Reviewed date:08/02/2024 05:29:08 PM Interpretation: Performing Lab: Notes/Report: The [facility] , Lactate/Lactic Acid 2.2 0.4-2.0 mmol/L RESULT S CALLED TO DR. DAMON Performing Lab: see note ML - [facility] LB LIPASE Reviewed date:08/02/2024 05:29:08 PM Interpretation: Performing Lab: Notes/Report: The [facility] , Lipase 66.0 16.0-77.0 U/L Performing Lab: see note ML - [facility] LB PROF 14(COMP METB) Reviewed date:08/02/2024 05:29:08 PM Interpretation: Performing Lab: Notes/Report: The [facility] , Sodium 141 136-145 mmol/L Potassium 3.6 [...] Performing Lab: see note ML - [facility] LB Troponin I High Sensitivity Reviewed date:08/02/2024 05:29:08 PM Interpretation: Performing Lab: Notes/Report: The [facility] , Troponin I High Sensitivity <4.0 4.0-51.3 pg/mL HAS BEEN CONFIRMED THE DECISION THRESHOLD FOR [place] DIAGNOSIS. 99TH PERCENTILE = 51.4 PG/ML NOTE: HIGH-SENSITIVITY TROPONIN ASSAY IS NOT INTENDED TO BE USED IN ISOLATION BUT SHOULD BE INTERPRETED IN CONJUNCTION WITH OTHER DIAGNOSTIC AND CLINICAL INFORMATION. CUT-OFF POINTS HAVE BEEN ESTABLISHED BASED ON THE FOURTH UNIVERSAL DEFINITION OF MYOCARDIAL INFARCTION. THE UPPER REFERENCE LIMIT (URL) OF TROPONIN, DEFINED THE 99TH PERCENTILE OF cTnI DISTRIBUTION IN A REFERENCE POPULATION, Performing Lab: see note - [facility] LB HCG Qualitative Urine Reviewed date:08/02/2024 05:29:08 PM Interpretation: Performing Lab: Notes/Report: [facility] , HCG Qualitative Urine* NEGATIVE NEGATIVE Performing Lab: see note - [facility] LB UA Micro, reflex to culture Reviewed date:08/02/2024 05:29:08 PM Interpretation: Performing Lab: Notes/Report: [facility] , Color Urine LT. YELLOW YELLOW Clarity Urine CLEAR CLEAR Specific [place] Urine <=1.005 1.005-1.025 pH Urine 6.5 5.0-9.0 [...] NO Performing Lab: see note ML - [facility] LB LIPASE Reviewed date:08/02/2024 05:29:08 PM Interpretation: Performing Lab: Notes/Report: [facility] , Lipase 67.0 16.0-77.0 U/L Performing Lab: see note - [facility] LB LACTATE or LACTIC ACID Reviewed date:08/02/2024 05:29:08 PM Interpretation: Performing Lab: Notes/Report: Y [facility] , Lactate/Lactic Acid 1.9 0.4-2.0 mmol/L Performing Lab: see note ML - [facility] LB BLOOD CULTURE ID PANEL Reviewed date:08/16/2024 07:06:02 PM Interpretation: Performing Lab: Notes/Report: [facility] , CTX-M NOT DETECTED NOT DETECTE [...] Enterobacterales DETECTED NOT DETECTE RESULTS CALLED TO [facility] RN @BY Andie Yepez at 2119 Enterobacter cloacae complex NOT DETECTED NOT DETECTE Escherichia coli NOT DETECTED NOT DETECTE Klebsiella aerogenes NOT DETECTED NOT DETECTE Klebsiella oxytoca NOT DETECTED NOT DETECTE Klebsiella pneumoniae group DETECTED NOT DETECTE RESULTS CALLED TO [facility] RN @BY Andie Yepez at 2120 Proteus spp. NOT DETECTED NOT DETECTE Salmonella [...] DETECTE Performing Lab: see note ML - [facility] LB CBC AUTO DIFF Reviewed date:08/15/2024 06:53:10 PM Interpretation: Performing Lab: Notes/Report: [facility] , White Blood Count 12.8 4.0-11.0 [...] Performing Lab: see note ML - [facility] LB LACTATE or LACTIC ACID Reviewed date:08/15/2024 06:53:10 PM Interpretation: Performing Lab: Notes/Report: The [facility] , Lactate/Lactic Acid 0.6 0.4-2.0 mmol/L Performing Lab: see note ML - [facility] LB UA (CLEAN or CATCH) REGISTERED NURSES or M ICRO IF IND. Reviewed date:08/15/2024 06:53:11 PM Interpretation: Performing Lab: Notes/Report: The [facility] , Color Urine LT. YELLOW YELLOW Clarity Urine CLEAR CLEAR Specific [place] Urine 1.010 1.005-1.025 pH Urine 6.0 5.0-9.0 Protein Urine NEGATIVE NEG/TRACE mg/dL Glucose Urine UA NEGATIVE NEGATIVE mg/dL Bilirubin Urine NEGATIVE NEGATIVE Ketones Urine 15 NEGATIVE mg/dL Blood Urine NEGATIVE NEGATIVE Nitrite Urine NEGATIVE NEGATIVE Urobilinogen Urine 0.2 0.2-1.0 EU/dL Leukocyte Esterase Urine NEGATIVE NEGATIVE Urine Microscopic Indicated NO Performing Lab: see note ML - [facility] LB Aerobe ID + Suscept Reviewed date:08/21/2024 [...] Status Aerobe ID + Suscept Organism: Gram negative jeffery : Aerobe ID + Suscept WILL FOLLOW O:GNR Isolated O:KLEBPN Isolated Organism: 1.2 Antibiotic Interpretation SANDHYA Status Aerobe ID + Suscept *ABNORMAL* Aerobe ID + Suscept WILL FOLLOW O:GNR Isolated O:KLEBPN Isolated Organism: 1.2 Antibiotic Interpretation SANDHYA Status Aerobe ID + Suscept Received anaerobic bottle only. Aerobe ID + Suscept WILL FOLLOW [...] Status Aerobe ID + Suscept Received anaerobic bottle only. Aerobe ID + Suscept WILL FOLLOW [...] SANDHYA Status Aerobe ID + Suscept Trimethoprim/Sulfame th oxazole S F Aerobe ID + Suscept WILL FOLLOW O:GNR Isolated O:KLEBPN Isolated Organism: 1.2 Antibiotic Interpretation SANDHYA Status Aerobe ID + Suscept Piperacillin/Tazobac ta m S F Aerobe ID + Suscept WILL FOLLOW O:GNR Isolated O:KLEBPN Isolated Organism: 1.2 Antibiotic Interpretation SANDHYA Status Performing Lab: see note - [facility] LB SEE REPORT - Defective Cigarette Slitter Id information not found for OBX-specific associate producer legend Anaerobe Identification Only Reviewed date:08/21/2024 08:08:02 PM Interpretation: Performing Lab: Notes/Report: [facility] , Anaerobe Identification Only See Below For Report Anaerobe Identification Only Anaerobe Identification Only Specimen has been received and testing has been initiated. Anaerobe Identification Only Anaerobe Identification Only Anaerobe Identification Only Anaerobe Identification Only No anaerobes recovered. Anaerobe Identification Only Anaerobe Identification Only Performed at: [facility] Anaerobe Identification Only Anaerobe Identification Only [address], [place] [id number] Anaerobe Identification Only Anaerobe Identification Only Horse Racetrack Manager: Daron Almanza PhD, Phone: [phone] Anaerobe Identification Only Performing Lab: see note - [facility] LB SEE REPORT - Defective Cigarette Slitter Id information not found for OBX-specific associate producer legend ECG 12 lead Reviewed date:08/16/2024 07:06:02 PM Interpretation: Performing Lab: Notes/Report: Source Facility: [place] [address] Electrocardiograph Report Signed Patient: JUAN GARCIA MR#: [id number] : 1990 Acct:[id number] Age/Sex: 34 / F ADM Date: 08/15/24 Loc: ER Attending Dr: Ordering Physician: Domenica Romeo Date of Service: 08/15/24 Procedure(s): ECG 12 lead Accession Number(s): [id number] cc: The [facility] Test Date: 2024-08-15 Pat Name: JUAN GARCIA Department: Room: - Gender: Female Wharfinger Chief: : 1990 Requested By: [id number] Order Number: [id number] Reading MD: JAMES HODGES M.D. Measurements Intervals Blodgett Rate: 82 P: 45 AL: 142 QRS: 75 QRSD: 84 T: 44 QT: 402 QTc: 440 Interpretive Statements 1100 Sinus rhythm 9110 normal ECG Compared to ECG 06/21/2024 11:24:35 No significant changes Electronically Signed On 08-16-2024 6:37:55 EDT by JAMES HODGES M.D. Dictated By: JAMES HODGES Signed By: 08/16/24 0637 DD/ 1303 TD/TT: Tower Erector: ARABELLA robison 2V Reviewed date:08/15/2024 06:53:11 PM Interpretation: Performing Lab: Notes/Report: Source Facility: [place] [address] XRay Report Signed Patient: JUAN GARCIA MR#: [id number] : 1990 Acct:[id number] Age/Sex: 34 / F ADM Date: 08/15/24 Loc: ER Attending Dr: Ordering Physician: Domenica Romeo Date of Service: 08/15/24 Procedure(s): XR chest 2V Accession Number(s): [id number] cc: Domenica Romeo; Britt Alas M.D. [address] [address] Patient Name: JUAN GARCIA MRN: [id number] date: 1990 Sex: F Assigned Patient Location: ER Current Patient Location: ER Accession/Order Number: [id number] Exam Date: 08/15/2024 14:21 Report Date: 08/15/2024 14:22 At the request of: DOMENICA ROMEO CEMENT FINISHER APPRENTICE Procedure: XR chest 2V Chest 2 views CLINICAL HISTORY: cough, septic work up COMPARISON: Chest 08/15/2023 FINDINGS: New right-sided catheter tip within the SVC. Heart is normal in size. Left midlung atelectasis no consolidation pneumothorax pleural effusion or free air. XR/XR chest 2V IMPRESSION: LEFT MIDLUNG ATELECTASIS. NO CONSOLIDATION TO SUGGEST PNEUMONIA. Impression dictated by: Marlene Hernández Jr.ORenetta 08/15/2024 2:22 PM Dictation Location: [place] [address] Electronically authenticated by: [id number] Y Date: 08/15/2024 14:22 Dictated By: Cornel Medel M.D. Signed By: 08/15/24 1424 DD/ 1422 TD/TT: Tower Erector: Aerobe ID + Suscept Reviewed date:08/19/2024 07:52:14 [...] Status Aerobe ID + Suscept Organism: Gram negative jeffery : Aerobe ID + Suscept O:GNR Isolated O:KLEBPN Isolated Organism: 1.2 Antibiotic Interpretation SANDHYA Status Aerobe ID + Suscept *ABNORMAL* Aerobe ID + Suscept O:GNR Isolated O:KLEBPN Isolated Organism: 1.2 Antibiotic Interpretation SANDHYA Status Aerobe ID + Suscept Received aerobic bottle only. Aerobe ID + Suscept O:GNR Isolated [...] Status Aerobe ID + Suscept Received aerobic bottle only. Aerobe ID + Suscept O:GNR Isolated [...] Aerobe ID + Suscept Performed at: [facility] Aerobe ID + Suscept O:GNR Isolated O:KLEBPN Isolated Organism: 1.2 Antibiotic Interpretation SANDHYA Status Aerobe ID + Suscept [address], [place] [id number] Aerobe ID + Suscept O:GNR Isolated O:KLEBPN Isolated Organism: 1.2 Antibiotic Interpretation SANDHYA Status Aerobe ID + Suscept Horse Racetrack Manager: Thierno Almanza PhD, Phone: [phone] Aerobe ID + Suscept O:GNR Isolated O:KLEBPN [...] SANDHYA Status Aerobe ID + Suscept Trimethoprim/Sulfame th oxazole S F Aerobe ID + Suscept O:GNR Isolated O:KLEBPN Isolated Organism: 1.2 Antibiotic Interpretation SANDHYA Status Aerobe ID + Suscept Piperacillin/Tazobac ta m S F Aerobe ID + Suscept O:GNR Isolated O:KLEBPN Isolated Organism: 1.2 Antibiotic Interpretation SANDHYA Status Performing Lab: see note LC - [facility] LB SEE REPORT - Defective Cigarette Slitter Id information not found for OBX-specific associate producer legend Aerobe ID + Suscept Reviewed [...] Status Aerobe ID + Suscept Organism: Gram negative jeffery : Aerobe ID + Suscept O:GNR Isolated O:KLEBPN Isolated Organism: 1.2 Antibiotic Interpretation SANDHYA Status Aerobe ID + Suscept *ABNORMAL* Aerobe ID + Suscept O:GNR Isolated O:KLEBPN Isolated Organism: 1.2 Antibiotic Interpretation SANDHYA Status Aerobe ID + Suscept Received pediatric bottle only. Aerobe ID + Suscept O:GNR Isolated [...] Status Aerobe ID + Suscept Received pediatric bottle only. Aerobe ID + Suscept O:GNR Isolated O:KLEBPN Isolated Organism: 1.2 Antibiotic Interpretation SANDHYA Status Aerobe ID + Suscept Klebsiella pneumoniae. Aerobe ID + Suscept O:GNR Isolated O:KLEBPN Isolated Organism: 1.2 Antibiotic Interpretation SANDYHA Status Aerobe ID + Suscept See Below For Report Aerobe ID + Suscept O:GNR Isolated O:KLEBPN Isolated Organism: 1.2 Antibiotic Interpretation SANDHYA Status Aerobe ID + Suscept See Below For Report Aerobe ID + Suscept O:GNR Isolated O:KLEBPN Isolated Organism: 1.2 Antibiotic Interpretation SANDHYA Status Aerobe ID + Suscept Performed at: [facility] Aerobe ID + Suscept O:GNR Isolated O:KLEBPN Isolated Organism: 1.2 Antibiotic Interpretation SANDHYA Status Aerobe ID + Suscept [address], [place] [id number] Aerobe ID + Suscept O:GNR Isolated O:KLEBPN Isolated Organism: 1.2 Antibiotic Interpretation SANDHYA Status Aerobe ID + Suscept Horse Racetrack Manager: Thierno Almanza PhD, Phone: [phone] Aerobe ID + Suscept O:GNR Isolated O:KLEBPN [...] Isolated O:KLEBPN Isolated Organism: 1.2 Antibiotic Interpretation SANDHAY Status Aerobe ID + Suscept Cefpodoxime S F Aerobe ID + Suscept O:GNR Isolated O:KLEBPN Isolated Organism: 1.2 Antibiotic Interpretation SANHDYA Status Aerobe ID + Suscept Ceftriaxone S [...] SANDHYA Status Aerobe ID + Suscept Trimethoprim/Sulfame th oxazole S F Aerobe ID + Suscept O:GNR Isolated O:KLEBPN Isolated Organism: 1.2 Antibiotic Interpretation SANDHYA Status Aerobe ID + Suscept Piperacillin/Tazobac ta m S F Aerobe ID + Suscept O:GNR Isolated O:KLEBPN Isolated Organism: 1.2 Antibiotic Interpretation SANDHYA Status Performing Lab: see note LC - [facility] LB SEE REPORT - Defective Cigarette Slitter Id information not found for OBX-specific associate producer legend CBC AUTO DIFF Reviewed date:08/16/2024 07:06:02 PM Interpretation: Performing Lab: Notes/Report: The [facility] , White Blood Count 9.1 4.0-11.0 10 [...] Performing Lab: see note ML - [facility] LB LACTATE or LACTIC ACID Reviewed date:08/16/2024 07:06:02 PM Interpretation: Performing Lab: Notes/Report: The [facility] , Lactate/Lactic Acid 0.6 0.4-2.0 mmol/L Performing Lab: see note ML - [facility] LB PROF 14(COMP METB) Reviewed date:08/16/2024 07:06:02 PM Interpretation: Performing Lab: Notes/Report: The [facility] , Sodium 138 136-145 mmol/L Potassium 3.3 [...] 0.7 Performing Lab: see note ML - [facility] LB Aerobe ID + Suscept Reviewed date:08/21/2024 08:08:02 PM Interpretation: Performing Lab: Notes/Report: [facility] , Aerobe ID + Suscept See Below For Report O:KLEBPN Isolated Organism: 1.2 Antibiotic Interpretation SANDHYA Status Aerobe ID + Suscept WILL FOLLOW O:GNR Isolated Aerobe ID + Suscept O:KLEBPN Isolated Organism: 1.2 Antibiotic Interpretation SANDHYA Status Aerobe ID + Suscept WILL FOLLOW O:GNR Isolated Aerobe ID + Suscept Specimen has been received and testing has been initiated. O:KLEBPN Isolated Organism: 1.2 Antibiotic Interpretation SANDHYA Status Aerobe ID + Suscept WILL FOLLOW O:GNR Isolated Aerobe ID + Suscept Organism: Gram negative jeffery : O:KLEBPN Isolated Organism: 1.2 Antibiotic Interpretation SANDHYA Status Aerobe ID + Suscept WILL FOLLOW O:GNR Isolated Aerobe ID + Suscept *ABNORMAL* O:KLEBPN Isolated Organism: 1.2 Antibiotic Interpretation SANDHYA Status Aerobe ID + Suscept WILL FOLLOW O:GNR Isolated Aerobe ID + Suscept Received anaerobic bottle only. O:KLEBPN Isolated Organism: 1.2 Antibiotic Interpretation SANDHYA Status Aerobe ID + Suscept WILL FOLLOW O:GNR Isolated Aerobe ID + Suscept Identification and sensitivities to follow. O:KLEBPN Isolated Organism: 1.2 Antibiotic Interpretation SANDHYA Status Aerobe ID + Suscept WILL FOLLOW O:GNR Isolated Aerobe ID + Suscept Gram negative jeffery O:KLEBPN Isolated Organism: 1.2 Antibiotic Interpretation SANDHYA Status Aerobe ID + Suscept WILL FOLLOW O:GNR Isolated Aerobe ID + Suscept Organism: Klebsiella pneumoniae. : O:KLEBPN Isolated Organism: 1.2 Antibiotic Interpretation SANDHYA Status Aerobe ID + Suscept WILL FOLLOW O:GNR Isolated Aerobe ID + Suscept *ABNORMAL* O:KLEBPN Isolated Organism: 1.2 Antibiotic Interpretation SANDHYA Status Aerobe ID + Suscept WILL FOLLOW O:GNR Isolated Aerobe ID + Suscept Received anaerobic bottle only. O:KLEBPN Isolated Organism: 1.2 Antibiotic Interpretation SANDHYA Status Aerobe ID + Suscept WILL FOLLOW O:GNR Isolated Aerobe ID + Suscept Klebsiella pneumoniae. O:KLEBPN Isolated Organism: 1.2 Antibiotic Interpretation SANDHYA Status Aerobe ID + Suscept WILL FOLLOW O:GNR Isolated Aerobe ID + Suscept See Below For Report O:KLEBPN Isolated Organism: 1.2 Antibiotic Interpretation SANDHYA Status Aerobe ID + Suscept WILL FOLLOW O:GNR Isolated Aerobe ID + Suscept See Below For Report O:KLEBPN Isolated Organism: 1.2 Antibiotic Interpretation SANDHYA Status Aerobe ID + Suscept WILL FOLLOW O:GNR Isolated Aerobe ID + Suscept See Below For Report O:KLEBPN Isolated Organism: 1.2 Antibiotic Interpretation SANDHYA Status Aerobe ID + Suscept WILL FOLLOW O:GNR Isolated Aerobe ID + Suscept AMOXICILLIN/CLAVULAN IC ACID S F O:KLEBPN Isolated Organism: 1.2 Antibiotic Interpretation SANDHYA Status Aerobe ID + Suscept WILL FOLLOW O:GNR Isolated Aerobe ID + Suscept Ampicillin R F O:KLEBPN Isolated Organism: 1.2 Antibiotic Interpretation SANDHYA Status Aerobe ID + Suscept WILL FOLLOW O:GNR Isolated Aerobe ID + Suscept Cefazolin S F O:KLEBPN Isolated Organism: 1.2 Antibiotic Interpretation SANDHYA Status Aerobe ID + Suscept WILL FOLLOW O:GNR Isolated Aerobe ID + Suscept Cefepime S F O:KLEBPN Isolated Organism: 1.2 Antibiotic Interpretation SANDHYA Status Aerobe ID + Suscept WILL FOLLOW O:GNR Isolated Aerobe ID + Suscept Cefoxitin S F O:KLEBPN Isolated Organism: 1.2 Antibiotic Interpretation SANDHYA Status Aerobe ID + Suscept WILL FOLLOW O:GNR Isolated Aerobe ID + Suscept Cefpodoxime S F O:KLEBPN Isolated Organism: 1.2 Antibiotic Interpretation SANDHYA Status Aerobe ID + Suscept WILL FOLLOW O:GNR Isolated Aerobe ID + Suscept Ceftriaxone S F O:KLEBPN Isolated Organism: 1.2 Antibiotic Interpretation SANDHYA Status Aerobe ID + Suscept WILL FOLLOW O:GNR Isolated Aerobe ID + Suscept Ciprofloxacin S F O:KLEBPN Isolated Organism: 1.2 Antibiotic Interpretation SANDHYA Status Aerobe ID + Suscept WILL FOLLOW O:GNR Isolated Aerobe ID + Suscept Ertapenem S F O:KLEBPN Isolated Organism: 1.2 Antibiotic Interpretation SANDHYA Status Aerobe ID + Suscept WILL FOLLOW O:GNR Isolated Aerobe ID + Suscept Gentamicin S F O:KLEBPN Isolated Organism: 1.2 Antibiotic Interpretation SANDHYA Status Aerobe ID + Suscept WILL FOLLOW O:GNR Isolated Aerobe ID + Suscept Levofloxacin S F O:KLEBPN Isolated Organism: 1.2 Antibiotic Interpretation SANDHYA Status Aerobe ID + Suscept WILL FOLLOW O:GNR Isolated Aerobe ID + Suscept Meropenem S F O:KLEBPN Isolated Organism: 1.2 Antibiotic Interpretation SANDHYA Status Aerobe ID + Suscept WILL FOLLOW O:GNR Isolated Aerobe ID + Suscept Tetracycline S F O:KLEBPN Isolated Organism: 1.2 Antibiotic Interpretation SANDHYA Status Aerobe ID + Suscept WILL FOLLOW O:GNR Isolated Aerobe ID + Suscept Tobramycin S F O:KLEBPN Isolated Organism: 1.2 Antibiotic Interpretation SANDHYA Status Aerobe ID + Suscept WILL FOLLOW O:GNR Isolated Aerobe ID + Suscept Trimethoprim/Sulfame th oxazole S F O:KLEBPN Isolated Organism: 1.2 Antibiotic Interpretation SANDHYA Status Aerobe ID + Suscept WILL FOLLOW O:GNR Isolated Aerobe ID + Suscept Piperacillin/Tazobac ta m S F O:KLEBPN Isolated Organism: 1.2 Antibiotic Interpretation SANDHYA Status Aerobe ID + Suscept WILL FOLLOW O:GNR Isolated Performing Lab: see note LC - [facility] LB SEE REPORT - Defective Cigarette Slitter Id information not found for OBX-specific associate producer legend Aerobe ID + Suscept Reviewed [...] Status Aerobe ID + Suscept Organism: Gram negative jeffery : Aerobe ID + Suscept WILL FOLLOW O:GNR Isolated O:KLEBPN Isolated Organism: 1.2 Antibiotic Interpretation SANDHYA Status Aerobe ID + Suscept *ABNORMAL* Aerobe ID + Suscept WILL FOLLOW O:GNR Isolated O:KLEBPN Isolated Organism: 1.2 Antibiotic Interpretation SANDHYA Status Aerobe ID + Suscept Received anaerobic bottle only. Aerobe ID + Suscept WILL FOLLOW [...] Status Aerobe ID + Suscept Received anaerobic bottle only. Aerobe ID + Suscept WILL FOLLOW [...] SANDHYA Status Aerobe ID + Suscept Trimethoprim/Sulfame th oxazole S F Aerobe ID + Suscept WILL FOLLOW O:GNR Isolated O:KLEBPN Isolated Organism: 1.2 Antibiotic Interpretation SANDHYA Status Aerobe ID + Suscept Piperacillin/Tazobac ta m S F Aerobe ID + Suscept WILL FOLLOW O:GNR Isolated O:KLEBPN Isolated Organism: 1.2 Antibiotic Interpretation SANDHYA Status Performing Lab: see note LC - [facility] LB SEE REPORT - Defective Cigarette Slitter Id information not found for OBX-specific associate producer legend Aerobe ID + Suscept Reviewed [...] Status Aerobe ID + Suscept Organism: Gram negative jeffery : Aerobe ID + Suscept O:GNR Isolated O:KLEBPN Isolated Organism: 1.2 Antibiotic Interpretation SANDHYA Status Aerobe ID + Suscept *ABNORMAL* Aerobe ID + Suscept O:GNR Isolated O:KLEBPN Isolated Organism: 1.2 Antibiotic Interpretation SANDHYA Status Aerobe ID + Suscept Received aerobic bottle only. Aerobe ID + Suscept O:GNR Isolated [...] Status Aerobe ID + Suscept Received aerobic bottle only. Aerobe ID + Suscept O:GNR Isolated [...] Aerobe ID + Suscept Performed at: [facility] Aerobe ID + Suscept O:GNR Isolated O:KLEBPN Isolated Organism: 1.2 Antibiotic Interpretation SANDHYA Status Aerobe ID + Suscept [address], [place] [id number] Aerobe ID + Suscept O:GNR Isolated O:KLEBPN Isolated Organism: 1.2 Antibiotic Interpretation SANDHYA Status Aerobe ID + Suscept Horse Racetrack Manager: Thierno Almanza PhD, Phone: [phone] Aerobe ID + Suscept O:GNR Isolated O:KLEBPN [...] SANDHYA Status Aerobe ID + Suscept Trimethoprim/Sulfame th oxazole S F Aerobe ID + Suscept O:GNR Isolated O:KLEBPN Isolated Organism: 1.2 Antibiotic Interpretation SANDHYA Status Aerobe ID + Suscept Piperacillin/Tazobac ta m S F Aerobe ID + Suscept O:GNR Isolated O:KLEBPN Isolated Organism: 1.2 Antibiotic Interpretation SANDHYA Status Performing Lab: see note LC - [facility] LB SEE REPORT - Defective Cigarette Slitter Id information not found for OBX-specific associate producer legend Aerobe ID + Suscept Reviewed [...] Status Aerobe ID + Suscept Organism: Gram negative jeffery : Aerobe ID + Suscept O:GNR Isolated O:KLEBPN Isolated Organism: 1.2 Antibiotic Interpretation SANDHYA Status Aerobe ID + Suscept *ABNORMAL* Aerobe ID + Suscept O:GNR Isolated O:KLEBPN Isolated Organism: 1.2 Antibiotic Interpretation SANDHYA Status Aerobe ID + Suscept Received aerobic bottle only. Aerobe ID + Suscept O:GNR Isolated O:KLEBPN Isolated Organism: 1.2 Antibiotic Interpretation ASNDHYA Status Aerobe ID + Suscept Identification and [...] Status Aerobe ID + Suscept Received aerobic bottle only. Aerobe ID + Suscept O:GNR Isolated [...] Aerobe ID + Suscept Performed at: [facility] Aerobe ID + Suscept O:GNR Isolated O:KLEBPN Isolated Organism: 1.2 Antibiotic Interpretation SANDHYA Status Aerobe ID + Suscept [address], [place] [id number] Aerobe ID + Suscept O:GNR Isolated O:KLEBPN Isolated Organism: 1.2 Antibiotic Interpretation SANDHYA Status Aerobe ID + Suscept Horse Racetrack Manager: Thierno Almanza PhD, Phone: [phone] Aerobe ID + Suscept O:GNR Isolated O:KLEBPN [...] SANDHYA Status Aerobe ID + Suscept Trimethoprim/Sulfame th oxazole S F Aerobe ID + Suscept O:GNR Isolated O:KLEBPN Isolated Organism: 1.2 Antibiotic Interpretation SANDHYA Status Aerobe ID + Suscept Piperacillin/Tazobac ta m S F Aerobe ID + Suscept O:GNR Isolated O:KLEBPN Isolated Organism: 1.2 Antibiotic Interpretation SANDHYA Status Performing Lab: see note LC - [facility] LB SEE REPORT - Defective Cigarette Slitter Id information not found for OBX-specific associate producer legend DRUG SCREEN RAPID (URINE) Reviewed date:08/28/2024 06:06:36 PM Interpretation: Performing Lab: Notes/Report: The [facility] , Cannabinoid Screen Urine NEGATIVE NEGATIVE Phencyclidine [...] Performing Lab: see note ML - [facility] LB LACTATE or LACTIC ACID Reviewed date:08/28/2024 06:06:36 PM Interpretation: Performing Lab: Notes/Report: The [facility] , Lactate/Lactic Acid 1.4 0.4-2.0 mmol/L Performing Lab: see note ML - [facility] LB LIPASE Reviewed date:08/28/2024 06:06:36 PM Interpretation: Performing Lab: Notes/Report: The [facility] , Lipase 40.0 16.0-77.0 U/L Performing Lab: see note ML - [facility] LB UA (CLEAN or CATCH) REGISTERED NURSES or M ICRO IF IND. Reviewed date:08/28/2024 06:06:36 PM Interpretation: Performing Lab: Notes/Report: The [facility] , Color Urine LT. YELLOW YELLOW Clarity Urine CLEAR CLEAR Specific [place] Urine 1.015 1.005-1.025 pH Urine 6.0 5.0-9.0 Protein Urine NEGATIVE NEG/TRACE mg/dL Glucose Urine UA NEGATIVE NEGATIVE mg/dL Bilirubin Urine NEGATIVE NEGATIVE Ketones Urine NEGATIVE NEGATIVE mg/dL Blood Urine NEGATIVE NEGATIVE Nitrite Urine NEGATIVE NEGATIVE Urobilinogen Urine 0.2 0.2-1.0 EU/dL Leukocyte Esterase Urine NEGATIVE NEGATIVE Urine Microscopic Indicated NO Performing Lab: see note ML - [facility] LB Manual Differential Reviewed date:08/28/2024 06:06:36 PM Interpretation: Performing Lab: Notes/Report: The [facility] , Segmented Neutrophils % Manual 86.0 43.0-75.0 [...] 10 3/uL Basophils Abs Manual 0.10 0.00-0.10 10 3/uL Performing Lab: see note ML - [facility] LB Aerobe ID + Suscept Reviewed [...] Aerobe ID + Suscept Performed at: [facility] Aerobe ID + Suscept Organism: Gram negative jeffery : O:GNR Isolated O:KLEBPN Isolated Organism: 1.2 Antibiotic Interpretation SANDHYA Status Aerobe ID + Suscept [address], [place] [id number] Aerobe ID + Suscept Organism: Gram negative jeffery : O:GNR Isolated O:KLEBPN Isolated Organism: 1.2 Antibiotic Interpretation SANDHYA Status Aerobe ID + Suscept Horse Racetrack Manager: Thierno Almanza PhD, Phone: [phone] Aerobe ID + Suscept Organism: Gram negative [...] SANDHYA Status Aerobe ID + Suscept Trimethoprim/Sulfame th oxazole S F Aerobe ID + Suscept Organism: Gram negative jeffery : O:GNR Isolated O:KLEBPN Isolated Organism: 1.2 Antibiotic Interpretation SANDHYA Status Aerobe ID + Suscept Piperacillin/Tazobac ta m S F Aerobe ID + Suscept Organism: Gram negative jeffery : O:GNR Isolated O:KLEBPN Isolated Organism: 1.2 Antibiotic Interpretation SANDHYA Status Performing Lab: see note LC - [facility] LB SEE REPORT - Defective Cigarette Slitter Id information not found for OBX-specific associate producer legend Anaerobe Identification Only Reviewed date:09/04/2024 [...] WILL FOLLOW Anaerobe Identification Only [facility] Anaerobe Identification Only WILL FOLLOW Anaerobe Identification Only [address], [place] [id number] Anaerobe Identification Only WILL FOLLOW Anaerobe Identification Only Horse Racetrack Manager: Daron Almanza PhD, Phone: [phone] Anaerobe Identification Only WILL FOLLOW Performing Lab: see note LC - [facility] LB SEE REPORT - Defective Cigarette Slitter Id information not found for OBX-specific associate producer legend ECG 12 lead Reviewed date:08/30/2024 05:17:51 PM Interpretation: Performing Lab: Notes/Report: Source Facility: [place] [address] Electrocardiograph Report Signed Patient: JUAN GARCIA MR#: [id number] : 1990 Acct:[id number] Age/Sex: 34 / F ADM Date: 08/28/24 Loc: [place] 218-[address]: Kal Wilson M.D. Ordering Physician: Domenica Romeo Date of Service: 08/28/24 Procedure(s): ECG 12 lead Accession Number(s): [id number] cc: [facility] Test Date: 2024-08-28 Pat Name: JUAN GARCIA Department: Room: - Gender: Female [employer]ar[employer] Chief: : 1990 Requested By: [id number] Order Number: [id number] Reading MD: KATIE ALTAMIRANO Measurements Intervals [place] Rate: 131 P: 99 AL: 124 QRS: 97 QRSD: 78 T: 68 [...] Signed By: 08/30/24 1325 DD/ 1420 TD/TT: Tower Erector: XR chest 2V Reviewed date:08/28/2024 06:06:36 PM Interpretation: Performing Lab: Notes/Report: Source Facility: [place] [address] XRay Report Signed Patient: JUAN GARCIA MR#: [id number] : 1990 Acct:[id number] Age/Sex: 34 / F ADM Date: 08/28/24 Loc: ER Attending Dr: Ordering Physician: Domenica Romeo Date of Service: 08/28/24 Procedure(s): XR chest 2V Accession Number(s): [id number] cc: Domenica Romeo; Britt Alas M.D. [place] [address] Patient Name: JUAN GARCIA MRN: [id number] date: 1990 Sex: F Assigned Patient Location: ER Current Patient Location: ER Accession/Order Number: [id number] Exam Date: 08/28/2024 16:39 Report Date: 08/28/2024 16:40 At the request of: DOMENICA ROMEO CEMENT FINISHER APPRENTICE Procedure: XR chest 2V XR chest 2V [...] Hutchinson M.D. 08/28/2024 4:40 PM Dictation Location: [place] [address] Electronically authenticated by: [id number] Y Date: 08/28/2024 16:40 Dictated By: Roddy Hutchinson M.D. Signed By: 08/28/24 1642 DD/ 1640 TD/TT: Tower Erector: CT abdomen pelvis w con Reviewed date:08/28/2024 06:06:36 PM Interpretation: Performing Lab: Notes/Report: Source Facility: [place] [address] [place] [address] CT Scan Report Signed Patient: JUAN GARCIA MR#: [id number] : 1990 Acct:[id number] Age/Sex: 34 / F ADM Date: 08/28/24 Loc: ER Attending Dr: Ordering Physician: Domenica Romeo Date of Service: 08/28/24 Procedure(s): CT abdomen pelvis w con Accession Number(s): [id number] cc: Britt Alas M.D. [place] [address] Patient Name: JUAN GARCIA MRN: [id number] date: 1990 Sex: F Assigned Patient Location: ER Current Patient Location: ER Accession/Order Number: [id number] Exam Date: 08/28/2024 16:40 Report Date: 08/28/2024 16:46 At the request of: DOMENICA ROMEO CEMENT FINISHER APPRENTICE Procedure: CT abdomen pelvis w con CT [...] Hutchinson M.D. 08/28/2024 4:46 PM Dictation Location: [place] [address] Electronically authenticated by: [id number] Y Date: 08/28/2024 16:46 Dictated By: Roddy Hutchinson M.D. Signed By: 08/28/24 1649 DD/ 1646 TD/TT: Tower Erector: Aermiah GIBSON + Sustess Reviewed date:09/04/2024 07:21:01 PM Interpretation: Performing Lab: Notes/Report: [facility] , Aerobe ID + Suscept See Below For Report Organism: 1.2 Antibiotic Interpretation SANDHYA Status Aerobe ID + Suscept Organism: Gram negative jeffery : O:GNR Isolated O:KLEBPN Isolated Aerobe ID + Suscept *ABNORMAL* Organism: 1.2 Antibiotic Interpretation SANDHYA Status Aerobe ID + Suscept Organism: Gram negative jeffery : O:GNR Isolated O:KLEBPN Isolated Aerobe ID + Suscept Recovered from anaerobic bottle only. Organism: 1.2 Antibiotic Interpretation SANDHYA Status Aerobe ID + Suscept Organism: Gram negative jeffery : O:GNR Isolated O:KLEBPN Isolated Aerobe ID + Suscept Gram negative jeffery Organism: 1.2 Antibiotic Interpretation SANDHYA Status Aerobe ID + Suscept Organism: Gram negative jeffery : O:GNR Isolated O:KLEBPN Isolated Aerobe ID + Suscept Organism: Klebsiella pneumoniae. : Organism: 1.2 Antibiotic Interpretation SANDHYA Status Aerobe ID + Suscept Organism: Gram negative jeffery : O:GNR Isolated O:KLEBPN Isolated Aerobe ID + Suscept *ABNORMAL* Organism: 1.2 Antibiotic Interpretation SANDHYA Status Aerobe ID + Suscept Organism: Gram negative jeffery : O:GNR Isolated O:KLEBPN Isolated Aerobe ID + Suscept Recovered from anaerobic bottle only. Organism: 1.2 Antibiotic Interpretation SANDHYA Status Aerobe ID + Suscept Organism: Gram negative jeffery : O:GNR Isolated O:KLEBPN Isolated Aerobe ID + Suscept Klebsiella pneumoniae. Organism: 1.2 Antibiotic Interpretation SANDHYA Status Aerobe ID + Suscept Organism: Gram negative jeffery : O:GNR Isolated O:KLEBPN Isolated Aerobe ID + Suscept See Below For Report Organism: 1.2 Antibiotic Interpretation SANDHYA Status Aerobe ID + Suscept Organism: Gram negative jeffery : O:GNR Isolated O:KLEBPN Isolated Aerobe ID + Suscept See Below For Report Organism: 1.2 Antibiotic Interpretation SANDHYA Status Aerobe ID + Suscept Organism: Gram negative jeffery : O:GNR Isolated O:KLEBPN Isolated Aerobe ID + Suscept See Below For Report Organism: 1.2 Antibiotic Interpretation SANDHYA Status Aerobe ID + Suscept Organism: Gram negative jeffery : O:GNR Isolated O:KLEBPN Isolated Aerobe ID + Suscept AMOXICILLIN/CLAVULAN IC ACID S F Organism: 1.2 Antibiotic Interpretation SANDHYA Status Aerobe ID + Suscept Organism: Gram negative jeffery : O:GNR Isolated O:KLEBPN Isolated Aerobe ID + Suscept Ampicillin R F Organism: 1.2 Antibiotic Interpretation SANDHYA Status Aerobe ID + Suscept Organism: Gram negative jeffery : O:GNR Isolated O:KLEBPN Isolated Aerobe ID + Suscept Cefazolin S F Organism: 1.2 Antibiotic Interpretation SANDHYA Status Aerobe ID + Suscept Organism: Gram negative jeffery : O:GNR Isolated O:KLEBPN Isolated Aerobe ID + Suscept Cefepime S F Organism: 1.2 Antibiotic Interpretation SANDHYA Status Aerobe ID + Suscept Organism: Gram negative jeffery : O:GNR Isolated O:KLEBPN Isolated Aerobe ID + Suscept Cefoxitin S F Organism: 1.2 Antibiotic Interpretation SANDHYA Status Aerobe ID + Suscept Organism: Gram negative jeffery : O:GNR Isolated O:KLEBPN Isolated Aerobe ID + Suscept Cefpodoxime S F Organism: 1.2 Antibiotic Interpretation SANDHYA Status Aerobe ID + Suscept Organism: Gram negative jeffery : O:GNR Isolated O:KLEBPN Isolated Aerobe ID + Suscept Ceftriaxone S F Organism: 1.2 Antibiotic Interpretation SANDHYA Status Aerobe ID + Suscept Organism: Gram negative jeffery : O:GNR Isolated O:KLEBPN Isolated Aerobe ID + Suscept Ciprofloxacin S F Organism: 1.2 Antibiotic Interpretation SANDHYA Status Aerobe ID + Suscept Organism: Gram negative jeffery : O:GNR Isolated O:KLEBPN Isolated Aerobe ID + Suscept Ertapenem S F Organism: 1.2 Antibiotic Interpretation SANDHYA Status Aerobe ID + Suscept Organism: Gram negative jeffery : O:GNR Isolated O:KLEBPN Isolated Aerobe ID + Suscept Gentamicin S F Organism: 1.2 Antibiotic Interpretation SANDHYA Status Aerobe ID + Suscept Organism: Gram negative jeffery : O:GNR Isolated O:KLEBPN Isolated Aerobe ID + Suscept Levofloxacin S F Organism: 1.2 Antibiotic Interpretation SANDHYA Status Aerobe ID + Suscept Organism: Gram negative jeffery : O:GNR Isolated O:KLEBPN Isolated Aerobe ID + Suscept Meropenem S F Organism: 1.2 Antibiotic Interpretation SANDHYA Status Aerobe ID + Suscept Organism: Gram negative jeffery : O:GNR Isolated O:KLEBPN Isolated Aerobe ID + Suscept Tetracycline S F Organism: 1.2 Antibiotic Interpretation SANDHYA Status Aerobe ID + Suscept Organism: Gram negative jeffery : O:GNR Isolated O:KLEBPN Isolated Aerobe ID + Suscept Tobramycin S F Organism: 1.2 Antibiotic Interpretation SANDHYA Status Aerobe ID + Suscept Organism: Gram negative jeffery : O:GNR Isolated O:KLEBPN Isolated Aerobe ID + Suscept Trimethoprim/Sulfame th oxazole S F Organism: 1.2 Antibiotic Interpretation SANDHYA Status Aerobe ID + Suscept Organism: Gram negative jeffery : O:GNR Isolated O:KLEBPN Isolated Aerobe ID + Suscept Piperacillin/Tazobac ta m S F Organism: 1.2 Antibiotic Interpretation SANDHYA Status Aerobe ID + Suscept Organism: Gram negative jeffery : O:GNR Isolated O:KLEBPN Isolated Performing Lab: see note LC - [facility] LB SEE REPORT - Defective Cigarette Slitter Id information not found for OBX-specific associate producer legend CBC AUTO DIFF Reviewed date:08/29/2024 05:13:55 PM Interpretation: Performing Lab: Notes/Report: The [facility] , White Blood Count 5.8 4.0-11.0 10 [...] Performing Lab: see note ML - The [facility] LB MAGNESIUM Reviewed date:08/29/2024 05:13:55 PM Interpretation: Performing Lab: Notes/Report: The [facility] , Magnesium 1.7 1.8-2.4 mg/dL Performing Lab: see note ML - [facility] LB PHOSPHORUS Reviewed date:08/29/2024 05:13:55 PM Interpretation: Performing Lab: Notes/Report: The [facility] , Phosphorus 2.8 2.6-4.7 mg/dL Performing Lab: see note - [facility] LB PROF 14(COMP METB) Reviewed date:08/29/2024 05:13:56 PM Interpretation: Performing Lab: Notes/Report: The [facility] , Sodium 144 136-145 mmol/L Potassium 3.6 [...] 0.7 Performing Lab: see note ML - [facility] LB ECG 12 lead Reviewed date:08/30/2024 05:17:51 PM Interpretation: Performing Lab: Notes/Report: Source Facility: [place] [address] [place] [address] Electrocardiograph Report Signed Patient: JUAN GARCIA MR#: [id number] : 1990 Acct:[id number] Age/Sex: 34 / F ADM Date: 08/28/24 Loc: MS 218-[address]: Kal Wilson M.D. Ordering Physician: Kal Wilson M.D. Date of Service: 08/29/24 Procedure(s): ECG 12 lead Accession Number(s): [id number] cc: The [facility] Test Date: 2024-08-29 Pat Name: JUAN GARCIA Department: Room: [facility] Gender: Female Wharfinger Chief: : 1990 Requested By: [id number] Order Number: [id number] Reading MD: KATIE ALTAMIRANO Measurements Intervals Blodgett Rate: 81 P: 52 AL: 146 QRS: 49 QRSD: 89 T: 32 QT: 391 QTc: 455 Interpretive Statements SINUS RHYTHM Compared to ECG 08/28/2024 14:20:49 Sinus tachycardia no longer present Possible ischemia no longer present Right-axis deviation no longer present Electronically Signed On 08-30-2024 13:30:47 EDT by KATIE ALTAMIRANO Dictated By: Katie Altamirano M.D. Signed By: 08/30/24 1330 DD/ 0528 TD/TT: Tower Erector: Blood Culture 1 Reviewed date:09/04/2024 07:21:01 PM Interpretation: Performing Lab: Notes/Report: LEFT UPPER ARM [facility] , Blood Culture 1 See Below For Report Blood Culture 1 NG5D NO GROWTH AT 5 DAYS.^NO GROWTH AT 5 DAYS. Performing Lab: see note ML - [facility] LB Blood Culture 2 Reviewed date:09/04/2024 07:21:01 PM Interpretation: Performing Lab: Notes/Report: KENYETTA WILDE The [facility] , Blood Culture 2 See Below For Report NG5D NO GROWTH AT 5 DAYS.^NO GROWTH AT 5 DAYS. Blood Culture 2 Performing Lab: see note - [facility] LB MAGNESIUM Reviewed date:08/31/2024 05:12:17 PM Interpretation: Performing Lab: Notes/Report: The [facility] , Magnesium 1.9 1.8-2.4 mg/dL Performing Lab: see note ML - [facility] LB PROF CHEM 8 (BAS METB) Reviewed date:08/31/2024 05:12:17 PM Interpretation: Performing Lab: Notes/Report: The [facility] , Sodium 148 136-145 mmol/L Potassium 3.5 [...] mg/dL Performing Lab: see note ML - [facility] LB CBC no Diff (Hemogram) Reviewed date:08/31/2024 05:12:17 PM Interpretation: Performing Lab: Notes/Report: The [facility] , White Blood Count 3.3 4.0-11.0 10 [...] 9.5-13.5 fL Performing Lab: see note - [facility] LB HCG Qualitative* Reviewed date:08/31/2024 05:12:17 PM Interpretation: Performing Lab: Notes/Report: The [facility] , HCG Qualitative NEGATIVE NEGATIVE Performing Lab: see note - [facility] LB CBC AUTO DIFF Reviewed date:09/17/2024 07:49:06 PM Interpretation: Performing Lab: Notes/Report: The [facility] , White Blood Count 4.6 4.0-11.0 10 3/uL Red Blood Count 3.80 4.20-5.40 10 6/uL Hemoglobin 11.3 12.0-16.0 g/dL Hematocrit 33.8 36.0-48.0 % Mean Corpuscular Volume 88.9 81.0-99.0 fL Mean Corpuscular Hemoglobin 29.7 26.7-34.0 pg Mean Corpuscular HGB Conc 33.4 29.9-35.2 g/dL Red Cell Distribution Width 14.0 11.0-15.0 % Platelet Count 388 150-450 10 3/uL Mean Platelet Volume 10.3 9.5-13.5 fL Neutrophils Percent Auto 43.9 43.0-75.0 % Lymphocytes Percent Auto 43.6 20.5-60.0 % Monocytes Percent Auto 9.0 1.7-12.0 % Eosinophils Percent Auto 2.6 0.9-7.0 % Basophils Percent Auto 0.7 0.2-2.0 % Immature Granulocytes Pct Auto 0.2 0.0-0.5 % Neutrophils Absolute Auto 2.0 1.4-6.5 10 3/uL Lymphocytes Absolute Auto 2.0 1.2-3.8 10 3/uL Monocytes Absolute Auto 0.4 0.3-0.8 10 3/uL Eosinophils Absolute Auto 0.1 0.0-0.7 10 3/uL Basophils Absolute Auto 0.0 0.0-0.1 10 3/uL Immature Granulocytes Abs Auto 0.01 0.00-0.03 10 3/uL Performing Lab: see note ML - [facility] LB LACTATE or LACTIC ACID Reviewed date:09/17/2024 07:49:06 PM Interpretation: Performing Lab: Notes/Report: The [facility] , Lactate/Lactic Acid 0.6 0.4-2.0 mmol/L Performing Lab: see note ML - [facility] LB MAGNESIUM Reviewed date:09/17/2024 07:49:06 PM Interpretation: Performing Lab: Notes/Report: The [facility] , Magnesium 1.7 1.8-2.4 mg/dL Performing Lab: see note ML - [facility] LB PROF CHEM 8 (BAS METB) Reviewed date:09/17/2024 07:49:06 PM Interpretation: Performing Lab: Notes/Report: The [facility] , Sodium 142 136-145 mmol/L Potassium 3.6 3.5-5.1 mmol/L Chloride 107 98-107 mmol/L Carbon Dioxide 24.5 21.0-32.0 mmol/L Anion Gap 14.1 Glucose 90 74-106 mg/dL Blood Urea Nitrogen 6.0 7.0-18.0 mg/dL Creatinine 0.66 0.55-1.02 mg/dL Estimated GFR ( Shelby >60 >=60 mL/min/1.73m 2 Estimated GFR (Non- Caroline >60 >=60 mL/min/1.73m 2 BUN Creatinine Ratio 9.1 Calcium 8.4 8.5-10.1 mg/dL Performing Lab: see note - [facility] LB UA RANDOM W or MICROSCOPIC Reviewed date:09/17/2024 07:49:06 PM Interpretation: Performing Lab: Notes/Report: The [facility] , Color Urine YELLOW YELLOW Clarity Urine CLEAR CLEAR Specific [place] Urine 1.020 1.005-1.025 pH Urine 6.0 5.0-9.0 Protein Urine NEGATIVE NEG/TRACE mg/dL Glucose Urine UA NEGATIVE NEGATIVE mg/dL Bilirubin Urine NEGATIVE NEGATIVE Ketones Urine TRACE NEGATIVE mg/dL Blood Urine NEGATIVE NEGATIVE Nitrite Urine NEGATIVE NEGATIVE Urobilinogen Urine 0.2 0.2-1.0 EU/dL Leukocyte Esterase Urine NEGATIVE NEGATIVE WBC Urine NONE SEEN NONE SEEN #/HPF RBC Urine 0-2 0-2 #/HPF Bacteria Urine TRACE NONE SEEN #/HPF Mucus Urine NONE SEEN NONE SEEN Squamous Epithelial Cell Urine MANY NONE/RARE #/LPF Crystals Seen? None Seen None Seen #/HPF Cast Seen? NONE SEEN NONE SEEN #/LPF Urine Culture Indicated NO Performing Lab: see note ML - [facility] LB ECG 12 lead Reviewed date:09/17/2024 07:49:06 PM Interpretation: Performing Lab: Notes/Report: Source Facility: [place] [address] [place] [address] Electrocardiograph Report Signed Patient: JUAN GARCIA MR#: [id number] : 1990 Acct:[id number] Age/Sex: 34 / F ADM Date: 09/15/24 Loc: ER Attending Dr: Ordering Physician: Leslie Terrazas M.D. Date of Service: 09/15/24 Procedure(s): ECG 12 lead Accession Number(s): [id number] cc: [facility] Test Date: 2024-09-15 Pat Name: JUAN GARCIA Department: Room: - Gender: Female Wharfinger Chief: : 1990 Requested By: BRITT ALAS Order Number: [id number] Clarice MD: JAMES HODGES M.D. Measurements Intervals Blodgett Rate: 97 P: 90 AL: 136 QRS: 92 QRSD: 82 T: 18 QT: 356 QTc: 411 Interpretive Statements 1100 Sinus rhythm 4068 Nonspecific Twave abnormality 7102 Moderate right axis deviation Abnormal ECG Compared to ECG 08/29/2024 05:28:41 Right-axis deviation now present Electronically Signed On 09-15-2024 18:32:41 EDT by JAMES HODGES M.D. Dictated By: JAMES HODGES Signed By: 09/15/24 1833 DD/ 1637 TD/TT: Tower Erector: XR chest 1V Reviewed date:09/17/2024 07:49:06 PM Interpretation: Performing Lab: Notes/Report: Source Facility: [place] [address] XRay Report Signed Patient: JUAN GARCIA MR#: [id number] : 1990 Acct:[id number] Age/Sex: 34 / F ADM Date: 09/15/24 Loc: ER Attending Dr: Ordering Physician: Leslie Terrazas M.D. Date of Service: 09/15/24 Procedure(s): XR chest 1V Accession Number(s): [id number] cc: Britt Alas M.D.; Leslie Terrazas M.D. [place] [address] Patient Name: JUAN GARCIA MRN: [id number] date: 1990 Sex: F Assigned Patient Location: ER Current Patient Location: ER Accession/Order Number: [id number] Exam Date: 09/15/2024 17:03 Report Date: 09/15/2024 17:04 At the request of: LESLIE TERRAZAS MD Procedure: XR chest 1V PA CHEST: CLINICAL HISTORY: Chills COMPARISON: 08/28/2024 The heart is normal in size. The lungs are clear. The pulmonary vasculature is normal. Mediastinum and hilar regions are unremarkable. No pleural effusions are seen. Visualized bones are intact. Catheter identified tip projects distal SVC. XR/XR chest 1V IMPRESSION: Negative acute pleural-parenchymal disease. Impression dictated by: Tio Lundberg M.D. 09/15/2024 5:04 PM Dictation Location: [place] [address] Electronically authenticated by: [id number] Y Date: 09/15/2024 17:04 Dictated By: Tio Lundberg M.D. Signed By: 09/15/241706 DD/ 03 TD/TT: Tower Erector: Blood Culture 1 Reviewed date:10/10/2024 07:54:38 PM Interpretation: Performing Lab: Notes/Report: The [facility] , Blood Culture 1 See Below For Report Blood Culture 1 NG5D NO GROWTH AT 5 DAYS.^NO GROWTH AT 5 DAYS. Performing Lab: see note - [facility] LB Blood Culture 2 Reviewed date:10/10/2024 07:54:38 PM Interpretation: Performing Lab: Notes/Report: PEDS BOTTLE The [facility] , Blood Culture 2 See Below For Report Blood Culture 2 NG5D NO GROWTH AT 5 DAYS.^NO GROWTH AT 5 DAYS. Performing Lab: see note - [facility] LB CBC AUTO DIFF Reviewed date:10/24/2024 02:11:49 PM Interpretation: Performing Lab: Notes/Report: The [facility] , White Blood Count 3.6 4.0-11.0 10 3/uL Red Blood Count 3.75 4.20-5.40 10 6/uL Hemoglobin 11.4 12.0-16.0 g/dL Hematocrit 33.4 36.0-48.0 % Mean Corpuscular Volume 89.1 81.0-99.0 fL Mean Corpuscular Hemoglobin 30.4 26.7-34.0 pg Mean Corpuscular HGB Conc 34.1 29.9-35.2 g/dL Red Cell Distribution Width 13.7 11.0-15.0 % Platelet Count 236 150-450 10 3/uL Mean Platelet Volume 10.7 9.5-13.5 fL Neutrophils Percent Auto 54.6 43.0-75.0 % Lymphocytes Percent Auto 36.4 20.5-60.0 % Monocytes Percent Auto 7.3 1.7-12.0 % Eosinophils Percent Auto 1.1 0.9-7.0 % Basophils Percent Auto 0.6 0.2-2.0 % Immature Granulocytes Pct Auto 0.0 0.0-0.5 % Neutrophils Absolute Auto 2.0 1.4-6.5 10 3/uL Lymphocytes Absolute Auto 1.3 1.2-3.8 10 3/uL Monocytes Absolute Auto 0.3 0.3-0.8 10 3/uL Eosinophils Absolute Auto 0.0 0.0-0.7 10 3/uL Basophils Absolute Auto 0.0 0.0-0.1 10 3/uL Immature Granulocytes Abs Auto 0.00 0.00-0.03 10 3/uL Performing Lab: see note ML - [facility] LB CRP Reviewed date:10/24/2024 02:11:49 PM Interpretation: Performing Lab: Notes/Report: The [facility] , C Reactive Protein <0.50 <=0.50 mg/dL Performing Lab: see note ML - [facility] LB PROF CHEM 8 (BAS METB) Reviewed date:10/24/2024 02:11:49 PM Interpretation: Performing Lab: Notes/Report: The [facility] , Sodium 141 136-145 mmol/L Potassium 3.7 3.5-5.1 mmol/L Chloride 110 98-107 mmol/L Carbon Dioxide 19.3 21.0-32.0 mmol/L Anion Gap 15.4 Glucose 86 74-106 mg/dL Blood Urea Nitrogen 4.0 7.0-18.0 mg/dL Creatinine 0.63 0.55-1.02 mg/dL Estimated GFR ( Shelby >60 >=60 mL/min/1.73m 2 Estimated GFR (Non- Caroline >60 >=60 mL/min/1.73m 2 BUN Creatinine Ratio 6.3 Calcium 8.3 8.5-10.1 mg/dL Performing Lab: see note ML - [facility] LB UA RANDOM W or MICROSCOPIC Reviewed date:10/24/2024 02:11:49 PM Interpretation: Performing Lab: Notes/Report: The [facility] , Color Urine LT. YELLOW YELLOW Clarity Urine CLEAR CLEAR Specific [place] Urine <=1.005 1.005-1.025 pH Urine 6.0 5.0-9.0 Protein Urine NEGATIVE NEG/TRACE mg/dL Glucose Urine UA NEGATIVE NEGATIVE mg/dL Bilirubin Urine NEGATIVE NEGATIVE Ketones Urine NEGATIVE NEGATIVE mg/dL Blood Urine NEGATIVE NEGATIVE Nitrite Urine NEGATIVE NEGATIVE Urobilinogen Urine 0.2 0.2-1.0 EU/dL Leukocyte Esterase Urine NEGATIVE NEGATIVE WBC Urine 0-2 NONE SEEN #/HPF RBC Urine 0-2 0-2 #/HPF Bacteria Urine TRACE NONE SEEN #/HPF Mucus Urine NONE SEEN NONE SEEN Squamous Epithelial Cell Urine FEW NONE/RARE #/LPF Crystals Seen? None Seen None Seen #/HPF Cast Seen? NONE SEEN NONE SEEN #/LPF Urine Culture Indicated NO Performing Lab: see note ML - [facility] LB ECG 12 lead Reviewed date:10/26/2024 07:01:06 PM Interpretation: Performing Lab: Notes/Report: Source Facility: [place] [address] Electrocardiograph Report Signed Patient: JUAN GARCIA MR#: [id number] : 1990 Acct:[id number] Age/Sex: 34 / F ADM Date: 10/24/24 Loc: ER Attending Dr: Ordering Physician: Leslie Terrazas M.D. Date of Service: 10/24/24 Procedure(s): ECG 12 lead Accession Number(s): [id number] cc: [facility] Test Date: 2024-10-24 Pat Name: JUAN GARCIA Department: Room: - Gender: Female Wharfinger Chief: : 1990 Requested By: 1030 Order Number: [id number] Reading MD: KATIE ALTAMIRANO Measurements Intervals Blodgett Rate: 87 P: 55 AL: 114 QRS: 88 QRSD: 78 T: 39 QT: 384 QTc: 428 Interpretive Statements 1100 Sinus rhythm 2210 Short AL interval 9150 abnormal ECG Compared to ECG 09/15/2024 16:37:37 Short AL interval now present Right-axis deviation no longer present Electronically Signed On 10-26-2024 13:33:01 EDT by KATIE ALTAMIRANO Dictated By: Katie Altamirano M.D. Signed By: 10/26/24 1333 10/26/24 1333 DD/ 0943 TD/TT: Tower Erector: Blood Culture 1 Reviewed date:10/31/2024 05:15:55 PM Interpretation: Performing Lab: Notes/Report: The [facility] , Blood Culture 1 See Below For Report NG5D NO GROWTH AT 5 DAYS.^NO GROWTH AT 5 DAYS. Blood Culture 1 Performing Lab: see note ML - [facility] LB Blood Culture 2 Reviewed date:10/31/2024 05:15:55 PM Interpretation: Performing Lab: Notes/Report: AEROBIC BOTTLE ONLY The [facility] , Blood Culture 2 See Below For Report NG5D NO GROWTH AT 5 DAYS.^NO GROWTH AT 5 DAYS. Blood Culture 2 Performing Lab: see note ML - [facility] LB LIPASE Reviewed date:10/29/2024 12:41:46 PM Interpretation: Performing Lab: Notes/Report: The [facility] , Lipase 76.0 16.0-77.0 U/L Performing Lab: see note ML - [facility] LB MAGNESIUM Reviewed date:10/29/2024 12:41:46 PM Interpretation: Performing Lab: Notes/Report: The [facility] , Magnesium 1.7 1.8-2.4 mg/dL Performing Lab: see note ML - [facility] LB PROF 14(COMP METB) Reviewed date:10/29/2024 12:41:46 PM Interpretation: Performing Lab: Notes/Report: The [facility] , Sodium 143 136-145 mmol/L Potassium 3.6 3.5-5.1 mmol/L Chloride 109 98-107 mmol/L Carbon Dioxide 23.7 21.0-32.0 mmol/L Anion Gap 13.9 Glucose 85 74-106 mg/dL Blood Urea Nitrogen 5.0 7.0-18.0 mg/dL Creatinine 0.66 0.55-1.02 mg/dL Estimated GFR ( Shelby >60 >=60 mL/min/1.73m 2 Estimated GFR (Non- Caroline >60 >=60 mL/min/1.73m 2 BUN Creatinine Ratio 7.6 Calcium 8.1 8.5-10.1 mg/dL Bilirubin Total 0.4 0.2-1.0 mg/dL Aspartate Amino Transferase 26 15-37 U/L Alanine Aminotransferase 21 14-59 U/L Alkaline Phosphatase 70 46-116 U/L Total Protein 6.5 6.4-8.2 g/dL Albumin Level 3.5 3.4-5.0 g/dL Globulin 3.0 Albumin Globulin Ratio 1.2 Performing Lab: see note - [facility] LB HCG Qualitative* Reviewed date:10/29/2024 12:41:46 PM Interpretation: Performing Lab: Notes/Report: The [facility] , HCG Qualitative NEGATIVE NEGATIVE Performing Lab: see note - [facility] LB CBC AUTO DIFF Reviewed date:10/30/2024 01:16:30 PM Interpretation: Performing Lab: Notes/Report: The [facility] , White Blood Count 4.5 4.0-11.0 10 3/uL Red Blood Count 3.88 4.20-5.40 10 6/uL Hemoglobin 11.7 12.0-16.0 g/dL Hematocrit 34.7 36.0-48.0 % Mean Corpuscular Volume 89.4 81.0-99.0 fL Mean Corpuscular Hemoglobin 30.2 26.7-34.0 pg Mean Corpuscular HGB Conc 33.7 29.9-35.2 g/dL Red Cell Distribution Width 13.2 11.0-15.0 % Platelet Count 279 150-450 10 3/uL Mean Platelet Volume 10.2 9.5-13.5 fL Neutrophils Percent Auto 49.5 43.0-75.0 % Lymphocytes Percent Auto 41.0 20.5-60.0 % Monocytes Percent Auto 7.7 1.7-12.0 % Eosinophils Percent Auto 0.9 0.9-7.0 % Basophils Percent Auto 0.9 0.2-2.0 % Immature Granulocytes Pct Auto 0.0 0.0-0.5 % Neutrophils Absolute Auto 2.3 1.4-6.5 10 3/uL Lymphocytes Absolute Auto 1.9 1.2-3.8 10 3/uL Monocytes Absolute Auto 0.4 0.3-0.8 10 3/uL Eosinophils Absolute Auto 0.0 0.0-0.7 10 3/uL Basophils Absolute Auto 0.0 0.0-0.1 10 3/uL Immature Granulocytes Abs Auto 0.00 0.00-0.03 10 3/uL Performing Lab: see note - [facility] LB PROF 14(COMP METB) Reviewed date:10/30/2024 01:16:30 PM Interpretation: Performing Lab: Notes/Report: The [facility] , Sodium 142 136-145 mmol/L Potassium 3.8 3.5-5.1 mmol/L Chloride 108 98-107 mmol/L Carbon Dioxide 24.8 21.0-32.0 mmol/L Anion Gap 13.0 Glucose 78 74-106 mg/dL Blood Urea Nitrogen 4.0 7.0-18.0 mg/dL Creatinine 0.65 0.55-1.02 mg/dL Estimated GFR ( Shelby >60 >=60 mL/min/1.73m 2 Estimated GFR (Non- Caroline >60 >=60 mL/min/1.73m 2 BUN Creatinine Ratio 6.2 Calcium 8.1 8.5-10.1 mg/dL Bilirubin Total 0.3 0.2-1.0 mg/dL Aspartate Amino Transferase 28 15-37 U/L Alanine Aminotransferase 14 14-59 U/L Alkaline Phosphatase 62 46-116 U/L Total Protein 6.3 6.4-8.2 g/dL Albumin Level 3.3 3.4-5.0 g/dL Globulin 3.0 Albumin Globulin Ratio 1.1 Performing Lab: see note ML - [facility] PTT Reviewed date:10/30/2024 02:53:54 PM Interpretation: Performing Lab: Notes/Report: [facility] , Partial Thromboplastin Time 28.6 22.3-36.2 sec Performing Lab: see note ML - [facility] Prothrombin Time INR Reviewed date:10/30/2024 02:53:54 PM Interpretation: Performing Lab: Notes/Report: The [facility] , Prothrombin Time 11.4 9.0-11.6 sec INR 1.08 DESIRED INR: 2.0-3.0 CONDITIONS NOT LISTED BELOW 2.5-3.5 FOR PROSTHETIC HEART VALVE REPLACEMENT 2.5-3.5 RECURRENT THROMBOSIS Performing Lab: see note ML - [facility] Troponin I High Sensitivity Reviewed date:10/30/2024 01:16:30 PM Interpretation: Performing Lab: Notes/Report: The [facility] , Troponin I High Sensitivity 42.8 4.0-51.3 pg/mL CUT-OFF POINTS HAVE BEEN ESTABLISHED [...] Performing Lab: see note ML - [facility] HCG Qualitative* Reviewed date:10/30/2024 01:16:30 PM Interpretation: Performing Lab: Notes/Report: The [facility] , HCG Qualitative NEGATIVE NEGATIVE Performing Lab: see note ML - [facility] LB ECG 12 lead Reviewed date:10/30/2024 05:59:55 PM Interpretation: Performing Lab: Notes/Report: Source Facility: [place] [address] [place] [address] Electrocardiograph Report Signed Patient: JUAN GARCIA MR#: [id number] : 1990 Acct:[id number] Age/Sex: 34 / F ADM Date: 10/30/24 Loc: ER Attending Dr: Ordering Physician: Barbara Willoughby Date of Service: 10/30/24 Procedure(s): ECG 12 lead Accession Number(s): [id number] cc: [facility] Test Date: 2024-10-30 Pat Name: JUAN GARCIA Department: Room: - Gender: Female Wharfinger Chief: : 1990 Requested By: 1854 Order Number: [id number] Reading MD: KATIE ALTAMIRANO Measurements Intervals Blodgett Rate: 99 P: 67 AL: 136 QRS: 62 QRSD: 82 T: 63 QT: 366 QTc: 422 Interpretive Statements 1100 Sinus rhythm Poor R wave progresison cannot rule out septal infarct Abnormal ECG Compared to ECG 10/24/2024 09:43:05 Short AL interval no longer present Septal infarct age indeterminate now present Electronically Signed On 10-30-2024 16:53:59 EDT by KATIE ALTAMIRANO Dictated By: Katie Altamirano M.D. Signed By: 10/30/24 1654 DD/ 1015 TD/TT: Tower Erector: XR chest 1V Reviewed date:10/30/2024 01:16:30 PM Interpretation: Performing Lab: Notes/Report: Source Facility: [address] [address] XRay Report Signed Patient: JUAN GARCIA MR#: [id number] : 1990 Acct:[id number] Age/Sex: 34 / F ADM Date: Loc: ER Attending Dr: Ordering Physician: Barbara Willoughby Date of Service: 10/30/24 Procedure(s): XR chest 1V Accession Number(s): [id number] cc: Britt Alas M.D.; Barbara Willoughby [place] [address] Patient Name: JUAN GARCIA MRN: [id number] date: 1990 Sex: F Assigned Patient Location: ED.MAIN Current Patient Location: ED.MAIN Accession/Order Number: [id number] Exam Date: 10/30/2024 10:20 Report Date: 10/30/2024 10:45 At the request of: BARBARA WILLOUGHBY MD Procedure: XR chest 1V PORTABLE AP ERECT CHEST 1006 hours CLINICAL HISTORY: Chest pain after receiving medications at the infusion center COMPARISON: None There is shallow inspiration. The heart is within normal limits. There is interval increase in perihilar markings that may be mild congestion. No developing consolidation is noted. There is no effusion or pneumothorax. The osseous structures are intact. XR/XR chest 1V IMPRESSION: SUSPECTED PERIHILAR CONGESTION. NO OTHER ACUTE FINDINGS Impression dictated by: Maricruz Hutchinson M.D. 10/30/2024 10:45 AM Dictation Location: [place] [address] Electronically authenticated by: [id number] Y Date: 10/30/2024 10:45 Dictated By: Maricruz Hutchinson M.D. Signed By: 10/30/24 1048 DD/ 1045 TD/TT: Tower Erector: Troponin I High Sensitivity Reviewed date:10/30/2024 01:16:30 PM Interpretation: Performing Lab: Notes/Report: The [facility] , Troponin I High Sensitivity 390.6 4.0-51.3 pg/mL RESULTS CALLED TO HENNY SHAH at 1252 CUT-OFF POINTS HAVE BEEN ESTABLISHED BASED ON [...] Performing Lab: see note ML - The [facility] LB ECG 12 lead Reviewed date:10/30/2024 05:59:55 PM Interpretation: Performing Lab: Notes/Report: Source Facility: [facility]-[address] [place] [address] [place] [address] Electrocardiograph Report Signed Patient: JUAN GARCIA MR#: [id number] : 1990 Acct:[id number] Age/Sex: 34 / F ADM Date: 10/30/24 Loc: ER Attending Dr: Ordering Physician: Barbara Willoughby Date of Service: 10/30/24 Procedure(s): ECG 12 lead Accession Number(s): [id number] cc: [facility] Test Date: 2024-10-30 Pat Name: JUAN GARCIA Department: Room: - Gender: Female Wharfinger Chief: : 1990 Requested By: 1854 Order Number: [id number] Reading MD: KATIE ALTAMIRANO Measurements Intervals Blodgett Rate: 84 P: 66 AL: 140 QRS: 62 QRSD: 82 T: 74 QT: 390 QTc: 431 Interpretive Statements 1100 Sinus rhythm 9110 normal ECG Compared to ECG 10/30/2024 10:15:35 Myocardial infarct finding no longer present Electronically Signed On 10-30-2024 16:58:00 EDT by KATIE ALTAMIRANO Dictated By: Katie Altamirano M.D. Signed By: 10/30/24 165 DD/ 1256 TD/TT: Tower Erector: Troponin I High Sensitivity Reviewed date:10/30/2024 04:08:35 PM Interpretation: Performing Lab: Notes/Report: The [facility] , Troponin I High Sensitivity 701.3 4.0-51.3 pg/mL PERCENTILE OF cTnI DISTRIBUTION IN A REFERENCE POPULATION, HAS BEEN CONFIRMED THE DECISION THRESHOLD FOR [place] DIAGNOSIS. 99TH PERCENTILE = 51.4 PG/ML NOTE: HIGH-SENSITIVITY TROPONIN ASSAY IS NOT INTENDED TO BE USED IN ISOLATION BUT SHOULD BE INTERPRETED IN CONJUNCTION WITH OTHER DIAGNOSTIC AND CLINICAL INFORMATION. RESULTS CALLED TO CHAVA HALL RN at 1506 CUT-OFF POINTS HAVE BEEN ESTABLISHED BASED ON THE FOURTH UNIVERSAL DEFINITION OF MYOCARDIAL INFARCTION. THE UPPER REFERENCE LIMIT (URL) OF TROPONIN, DEFINED THE 99TH Performing Lab: see note ML - [facility] LB ECG 12 lead Reviewed date:10/30/2024 05:59:55 PM Interpretation: Performing Lab: Notes/Report: Source Facility: [place] [address] [place] [address] Electrocardiograph Report Signed Patient: JUAN GARCIA MR#: [id number] : 1990 Acct:[id number] Age/Sex: 34 / F ADM Date: 10/30/24 Loc: ER Attending Dr: Ordering Physician: Barbara Willoughby Date of Service: 10/30/24 Procedure(s): ECG 12 lead Accession Number(s): [id number] cc: [facility] Test Date: 2024-10-30 Pat Name: JUAN GARCIA Department: Room: - Gender: Female Wharfinger Chief: : 1990 Requested By: 1854 Order Number: [id number] Reading MD: KATIE ALTAMIRANO Measurements Intervals Blodgett Rate: 82 P: 67 AL: 146 QRS: 69 QRSD: 82 T: 84 QT: 404 QTc: 443 Interpretive Statements 1100 Sinus rhythm 9110 normal ECG Compared to ECG 10/30/2024 12:56:06 No significant changes Electronically Signed On 10-30-2024 17:00:49 EDT by KATIE ALTAMIRANO Dictated By: Katie Altamirano M.D. Signed By: 10/30/24 1701 DD/ 1531 TD/TT: Tower Erector: CBC AUTO DIFF (Not yet revie wed by provider) Interpretation: Performing Lab: Notes/Report: The [facility] , White Blood Count 3.6 4.0-11.0 10 3/uL Red Blood Count 3.04 4.20-5.40 10 6/uL Hemoglobin 9.2 12.0-16.0 g/dL Hematocrit 27.8 36.0-48.0 % Mean Corpuscular Volume 91.4 81.0-99.0 fL Mean Corpuscular Hemoglobin 30.3 26.7-34.0 pg Mean Corpuscular HGB Conc 33.1 29.9-35.2 g/dL Red Cell Distribution Width 14.6 11.0-15.0 % Platelet Count 296 150-450 10 3/uL Mean Platelet Volume 10.6 9.5-13.5 fL Neutrophils Percent Auto 36.0 43.0-75.0 % Lymphocytes Percent Auto 47.4 20.5-60.0 % Monocytes Percent Auto 10.0 1.7-12.0 % Eosinophils Percent Auto 5.8 0.9-7.0 % Basophils Percent Auto 0.8 0.2-2.0 % Immature Granulocytes Pct Auto 0.0 0.0-0.5 % Neutrophils Absolute Auto 1.3 1.4-6.5 10 3/uL Lymphocytes Absolute Auto 1.7 1.2-3.8 10 3/uL Monocytes Absolute Auto 0.4 0.3-0.8 10 3/uL Eosinophils Absolute Auto 0.2 0.0-0.7 10 3/uL Basophils Absolute Auto 0.0 0.0-0.1 10 3/uL Immature Granulocytes Abs Auto 0.00 0.00-0.03 10 3/uL Performing Lab: see note ML - [facility] LB CBC AUTO DIFF Reviewed date:10/29/2024 12:41:46 PM Interpretation: Performing Lab: Notes/Report: The [facility] , White Blood Count 3.4 4.0-11.0 10 3/uL Red Blood Count 3.93 4.20-5.40 10 6/uL Hemoglobin 11.6 12.0-16.0 g/dL Hematocrit 34.5 36.0-48.0 % Mean Corpuscular Volume 87.8 81.0-99.0 fL Mean Corpuscular Hemoglobin 29.5 26.7-34.0 pg Mean Corpuscular HGB Conc 33.6 29.9-35.2 g/dL Red Cell Distribution Width 13.4 11.0-15.0 % Platelet Count 272 150-450 10 3/uL Mean Platelet Volume 10.3 9.5-13.5 fL Neutrophils Percent Auto 47.0 43.0-75.0 % Lymphocytes Percent Auto 43.8 20.5-60.0 % Monocytes Percent Auto 7.7 1.7-12.0 % Eosinophils Percent Auto 1.2 0.9-7.0 % Basophils Percent Auto 0.3 0.2-2.0 % Immature Granulocytes Pct Auto 0.0 0.0-0.5 % Neutrophils Absolute Auto 1.6 1.4-6.5 10 3/uL Lymphocytes Absolute Auto 1.5 1.2-3.8 10 3/uL Monocytes Absolute Auto 0.3 0.3-0.8 10 3/uL Eosinophils Absolute Auto 0.0 0.0-0.7 10 3/uL Basophils Absolute Auto 0.0 0.0-0.1 10 3/uL Immature Granulocytes Abs Auto 0.00 0.00-0.03 10 3/uL Performing Lab: see note ML - [facility] LB UA Micro, reflex to culture Reviewed date:09/20/2024 12:30:47 PM Interpretation: Performing Lab: Notes/Report: The [facility] , Color Urine LT. YELLOW YELLOW Clarity Urine CLEAR CLEAR Specific [place] Urine 1.010 1.005-1.025 pH Urine 6.5 5.0-9.0 Protein Urine NEGATIVE NEG/TRACE mg/dL Glucose Urine UA NEGATIVE NEGATIVE mg/dL Bilirubin Urine NEGATIVE NEGATIVE Ketones Urine NEGATIVE NEGATIVE mg/dL Blood Urine NEGATIVE NEGATIVE Nitrite Urine NEGATIVE NEGATIVE Urobilinogen Urine 0.2 0.2-1.0 EU/dL Leukocyte Esterase Urine NEGATIVE NEGATIVE WBC Urine NONE SEEN NONE SEEN #/HPF RBC Urine NONE SEEN 0-2 #/HPF Bacteria Urine NONE SEEN NONE SEEN #/HPF Mucus Urine NONE SEEN NONE SEEN Squamous Epithelial Cell Urine RARE NONE/RARE #/LPF Crystals Seen? None Seen None Seen #/HPF Cast Seen? NONE SEEN NONE SEEN #/LPF Urine Culture Indicated NO Performing Lab: see note ML - [facility] LB PROF CHEM 8 (BAS METB) Reviewed date:09/20/2024 12:30:47 PM Interpretation: Performing Lab: Notes/Report: The [facility] , Sodium 145 136-145 mmol/L Potassium 3.7 3.5-5.1 mmol/L Chloride 110 98-107 mmol/L Carbon Dioxide 25.9 21.0-32.0 mmol/L Anion Gap 12.8 Glucose 83 74-106 mg/dL Blood Urea Nitrogen 7.0 7.0-18.0 mg/dL Creatinine 0.63 0.55-1.02 mg/dL Estimated GFR ( [place] >60 >=60 mL/min/1.73m 2 Estimated GFR (Non- [place] >60 >=60 mL/min/1.73m 2 BUN Creatinine Ratio 11.1 Calcium 8.9 8.5-10.1 mg/dL Performing Lab: see note ML - [facility] LB LACTATE or LACTIC ACID Reviewed date:09/20/2024 12:30:47 PM Interpretation: Performing Lab: Notes/Report: The [facility] , Lactate/Lactic Acid 0.9 0.4-2.0 mmol/L Performing Lab: see note ML - [facility] LB CRP Reviewed date:09/20/2024 12:30:47 PM Interpretation: Performing Lab: Notes/Report: The [facility] , C Reactive Protein <0.50 <=0.50 mg/dL Performing Lab: see note ML - [facility] LB CBC AUTO DIFF Reviewed date:09/20/2024 12:30:47 PM Interpretation: Performing Lab: Notes/Report: The [facility] , White Blood Count 5.2 4.0-11.0 10 3/uL Red Blood Count 4.09 4.20-5.40 10 6/uL Hemoglobin 12.1 12.0-16.0 g/dL Hematocrit 37.4 36.0-48.0 % Mean Corpuscular Volume 91.4 81.0-99.0 fL Mean Corpuscular Hemoglobin 29.6 26.7-34.0 pg Mean Corpuscular HGB Conc 32.4 29.9-35.2 g/dL Red Cell Distribution Width 14.0 11.0-15.0 % Platelet Count 385 150-450 10 3/uL Mean Platelet Volume 10.3 9.5-13.5 fL Neutrophils Percent Auto 55.3 43.0-75.0 % Lymphocytes Percent Auto 34.8 20.5-60.0 % Monocytes Percent Auto 6.4 1.7-12.0 % Eosinophils Percent Auto 2.5 0.9-7.0 % Basophils Percent Auto 0.8 0.2-2.0 % Immature Granulocytes Pct Auto 0.2 0.0-0.5 % Neutrophils Absolute Auto 2.9 1.4-6.5 10 3/uL Lymphocytes Absolute Auto 1.8 1.2-3.8 10 3/uL Monocytes Absolute Auto 0.3 0.3-0.8 10 3/uL Eosinophils Absolute Auto 0.1 0.0-0.7 10 3/uL Basophils Absolute Auto 0.0 0.0-0.1 10 3/uL Immature Granulocytes Abs Auto 0.01 0.00-0.03 10 3/uL Performing Lab: see note ML - [facility] CA echo doppler complete Reviewed date:09/04/2024 02:45:30 PM Interpretation: Performing Lab: Notes/Report: Source Facility: [place] [address] Cardiology Report Signed Patient: JUAN GARCIA MR#: [id number] : 1990 Acct:[id number] Age/Sex: 34 / F ADM Date: 08/28/24 Loc: MS 218-[address]: Kal Wilson M.D. Ordering Physician: Kal Wilson M.D. Date of Service: 09/01/24 Procedure(s): CA echo doppler complete Accession Number(s): [id number] cc: Britt Alas M.D.; Kal Wilson M.D. Patient Name: JUAN GARCIA MR#: [id number] : 1990 Exam Date: 09/01/2024 Ordering Doctor: [...] Area (VTI): 3.35 cm2, 3.28 cm2 Deceleration [place]: Pressure Half-Time: Peak Velocity(Antegrade Flow): 1.25 m/s, [...] M.D. Signed By: 09/03/241826 DD/ 24 TD/TT: Tower Erector: BLOOD CULTURE ID PANEL Reviewed date:08/29/2024 05:13:56 PM Interpretation: Performing Lab: Notes/Report: The [facility] , CTX-M NOT DETECTED NOT DETECTE IMP [...] DETECTE Performing Lab: see note ML - [facility] LB PROF 14(COMP METB) Reviewed date:08/15/2024 06:53:11 PM Interpretation: Performing Lab: Notes/Report: The [facility] , Sodium 137 136-145 mmol/L Potassium 3.8 [...] 0.7 Performing Lab: see note ML - [facility] LB LIPASE Reviewed date:08/15/2024 06:53:11 PM Interpretation: Performing Lab: Notes/Report: [facility] , Lipase 60.0 16.0-77.0 U/L Performing Lab: see note ML - [facility] LB XR acute abdomen series Reviewed date:08/02/2024 05:29:08 PM Interpretation: Performing Lab: Notes/Report: Source Facility: [place] [address] XRay Report Signed Patient: JUAN GARCIA MR#: [id number] : 1990 Acct:[id number] Age/Sex: 34 / F ADM Date: 08/02/24 Loc: ER Attending Dr: Ordering Physician: Massimo Damon Date of Service: 08/02/24 Procedure(s): XR acute abdomen series Accession Number(s): [id number] cc: Britt Alas M.D.; Massimo Damon [place] [address] Patient Name: JUAN GARCIA MRN: [id number] date: 1990 Sex: F Assigned Patient Location: ER Current Patient Location: ER Accession/Order Number: [id number] Exam Date: 08/02/2024 09:12 Report Date: 08/02/2024 [...] Hutchinson M.D. 08/02/2024 9:19 AM Dictation Location: [place] [address] Electronically authenticated by: [id number] Y Date: 08/02/2024 09:19 Dictated By: Maricruz Hutchinson M.D. Signed By: 08/02/2422 DD/ 8 TD/TT: Tower Erector: CBC AUTO DIFF Reviewed date:08/02/2024 05:29:08 PM Interpretation: Performing Lab: Notes/Report: The [facility] , White Blood Count 9.1 4.0-11.0 10 [...] 10 3/uL Performing Lab: see note - [facility] LB PROF CHEM 8 (BAS METB) Reviewed date:07/22/2024 05:16:36 PM Interpretation: Performing Lab: Notes/Report: The [facility] , Sodium 144 136-145 mmol/L Potassium 3.9 [...] 8.5-10.1 mg/dL Performing Lab: see note - [facility] LB CBC AUTO DIFF Reviewed date:07/22/2024 05:16:36 PM Interpretation: Performing Lab: Notes/Report: The [facility] , White Blood Count 6.4 4.0-11.0 10 [...] Performing Lab: see note ML - [facility] LB HCG Qualitative* Reviewed date:06/21/2024 12:59:38 PM Interpretation: Performing Lab: Notes/Report: The [facility] , HCG Qualitative NEGATIVE NEGATIVE Performing Lab: see note ML - [facility] LB PROF CHEM 8 (BAS METB) Reviewed date:06/21/2024 12:59:38 PM Interpretation: Performing Lab: Notes/Report: The [facility] , Sodium 137 136-145 mmol/L Potassium 3.5 [...] Performing Lab: see note ML - [facility] LB LIVER PROFILE Reviewed date:06/21/2024 12:59:38 PM Interpretation: Performing Lab: Notes/Report: The [facility] , Bilirubin Total 0.6 0.2-1.0 mg/dL Bilirubin Direct 0.2 0.0-0.2 mg/dL Aspartate Amino Transferase 22 15-37 U/L Alanine Aminotransferase 27 14-59 U/L Alkaline Phosphatase 62 46-116 U/L Total Protein 6.7 6.4-8.2 g/dL Albumin Level 3.4 3.4-5.0 g/dL Globulin 3.3 Albumin Globulin Ratio 1.0 Performing Lab: see note ML - [facility] LB LIPASE Reviewed date:06/21/2024 12:59:38 PM Interpretation: Performing Lab: Notes/Report: The [facility] , Lipase 78.0 16.0-77.0 U/L Performing Lab: see note ML - [facility] LB AMYLASE Reviewed date:06/21/2024 12:59:38 PM Interpretation: Performing Lab: Notes/Report: The [facility] , Amylase 51 25-115 U/L Performing Lab: see note ML - [facility] LB PROF CHEM 8 (BAS METB) Reviewed date:03/30/2024 07:56:16 PM Interpretation: Performing Lab: Notes/Report: The [facility] , Sodium 140 136-145 mmol/L Potassium 4.0 [...] mg/dL Performing Lab: see note ML - [facility] LB MAGNESIUM Reviewed date:03/30/2024 07:56:16 PM Interpretation: Performing Lab: Notes/Report: The [facility] , Magnesium 1.7 1.8-2.4 mg/dL Performing Lab: see note ML - [facility] LB TSH Reviewed date:03/29/2024 09:46:23 PM Interpretation: Performing Lab: Notes/Report: The [facility] , Thyroid Stimulating Hormone 0.622 0.358-3.740 uIU/mL Performing Lab: see note ML - [facility] LB MAGNESIUM Reviewed date:03/29/2024 09:46:23 PM Interpretation: Performing Lab: Notes/Report: The [facility] , Magnesium 1.8 1.8-2.4 mg/dL Performing Lab: see note ML - [facility] PROF 14(COMP METB) Reviewed date:01/31/2024 02:12:13 PM Interpretation: Performing Lab: Notes/Report: The [facility] , Sodium 141 136-145 mmol/L Potassium 4.0 [...] 1.1 Performing Lab: see note ML - [facility] LB PHOSPHORUS Reviewed date:01/31/2024 02:12:13 PM Interpretation: Performing Lab: Notes/Report: The [facility] , Phosphorus 3.7 2.6-4.7 mg/dL Performing Lab: see note ML - [facility] LB MAGNESIUM Reviewed date:01/31/2024 02:12:13 PM Interpretation: Performing Lab: Notes/Report: The [facility] , Magnesium 1.6 1.8-2.4 mg/dL Performing Lab: see note ML - [facility] LB FERRITIN Reviewed date:01/31/2024 02:12:13 PM Interpretation: Performing Lab: Notes/Report: The [facility] , Ferritin 98.0 8.0-252.0 ng/mL Performing Lab: see note ML - [facility] LB CBC AUTO DIFF Reviewed date:01/31/2024 02:12:13 PM Interpretation: Performing Lab: Notes/Report: The [facility] , White Blood Count 5.3 4.0-11.0 10 [...] Performing Lab: see note ML - [facility] LB CBC AUTO DIFF Reviewed date:01/20/2024 03:46:41 PM Interpretation: Performing Lab: Notes/Report: The [facility] , White Blood Count 5.7 4.0-11.0 10 [...] Performing Lab: see note ML - [facility] LB XR acute abdomen series Reviewed date:01/12/2024 05:28:40 PM Interpretation: Performing Lab: Notes/Report: Source Facility: [facility]-[address] [place] [address] [place] [address] XRay Report Signed Patient: JUAN GARCIA MR#: [id number] : 1990 Acct:[id number] Age/Sex: 33 / F ADM Date: 01/10/24 Loc: LAB Attending Dr: Britt Alas M.D. Ordering Physician: Britt Alas M.D. Date of Service: 01/10/24 Procedure(s): XR acute abdomen series Accession Number(s): [id number] cc: Britt Alas M.D. The [place] [address] Patient Name: JUAN GARCIA MRN: [facility]:[id number] date: 1990 Sex: F Assigned Patient Location: LAB Current Patient Location: Accession/Order Number: [id number] Exam Date: 01/10/2024 10:06 Report Date: 01/12/2024 [...] Signed By: 01/12/24 1448 DD/ 1445 TD/TT: Tower Erector: PROF Hickey(COMP METB) Reviewed date:01/06/2024 01:36:15 PM Interpretation: Performing Lab: Notes/Report: [facility] DROP OFF The [facility] , Sodium 140 136-145 mmol/L Potassium 3.6 [...] 1.2 Performing Lab: see note ML - [facility] LB PHOSPHORUS Reviewed date:01/06/2024 01:36:15 PM Interpretation: Performing Lab: Notes/Report: [facility] DROP OFF [facility] , Phosphorus 3.3 2.6-4.7 mg/dL Performing Lab: see note - [facility] LB MAGNESIUM Reviewed date:01/06/2024 01:36:15 PM Interpretation: Performing Lab: Notes/Report: [facility] DR[facility] OFF [facility] , Magnesium 1.7 1.8-2.4 mg/dL Performing Lab: see note [facility] LB CBC AUTO DIFF Reviewed date:01/06/2024 01:36:15 PM Interpretation: Performing Lab: Notes/Report: [facility] , White Blood Count 5.6 4.0-11.0 [...] 3/uL Performing Lab: see note ML - [facility] LB Testosterone,Free and Total Reviewed date:12/23/2023 07:44:34 PM Interpretation: Performing Lab: Notes/Report: [facility] DROP OFF [facility] , Testosterone <3 8-60 ng/dL Free Testosterone(Direct) <0.2 0.0-4.2 pg/mL Performed at: - [facility] [address] [id number] [employer] Racetr[employer] Manager: Daron Almanza PhD, Phone: [phone] Performed at: [facility] Lab[address] [id number] [employer]etr[employer] Manager: Suhas Ring MD, Phone: [phone] Performing Lab: see note - [facility] LB PHOSPHORUS Reviewed date:11/25/2023 07:16:42 PM Interpretation: Performing Lab: Notes/Report: [facility] DROP OFF [facility] , Phosphorus 2.4 2.6-4.7 mg/dL Performing Lab: see note ML - [facility] LB MAGNESIUM Reviewed date:11/25/2023 07:16:42 PM Interpretation: Performing Lab: Notes/Report: [facility] DROP OFF [facility] , Magnesium 1.9 1.8-2.4 mg/dL Performing Lab: see note ML - [facility] LB Aerobic Culture Reviewed date:11/24/2023 08:11:28 PM [...] SANDHYA Status Aerobic Culture Performed at: [facility] Aerobic Culture Organism: Gram negative jeffery : O:GNR Isolated O:PSAV Isolated Organism: 1.2 Antibiotic Interpretation SANDHYA Status Aerobic Culture [address], [place] [id number] Aerobic Culture Organism: Gram negative jeffery : O:GNR Isolated O:PSAV Isolated Organism: 1.2 Antibiotic Interpretation SANDHYA Status Aerobic Culture Horse Racetr[employer] Manager: Thierno Almanza PhD, Phone: [phone] Aerobic Culture Organism: Gram negative jeffery : [...] LC - [facility] LB SEE REPORT - Defective Cigarette Slitter Id information not found for OBX-specific associate producer legend Blood Culture 2 Reviewed date:09/04/2024 02:45:30 PM Interpretation: Performing Lab: Notes/Report: LEFT WRIST The [facility] , Blood Culture 2 See Below For Report Blood Culture 2 NG5D NO GROWTH AT 5 DAYS.^NO GROWTH AT 5 DAYS. Performing Lab: see note ML - [facility] LB PROF 14(COMP METB) Reviewed date:08/28/2024 06:06:36 PM Interpretation: Performing Lab: Notes/Report: The [facility] , Sodium 140 136-145 mmol/L Potassium 3.1 [...] 0.8 Performing Lab: see note ML - [facility] CBC AUTO DIFF Reviewed date:08/28/2024 06:06:36 PM Interpretation: Performing Lab: Notes/Report: [facility] , White Blood Count 5.2 4.0-11.0 [...] fL Performing Lab: see note ML - [facility] LB Reason For Referral Diagnosis 1 Hypoglycemia (E16.2) Referral Organization [facility] Medicine Referring Provider First Name Brandyn Referring Provider Last Name Evette Referring Provider Speciality [facility] daniel Referred Provider Que [place] Referred Provider Specialty Endocrinolog y Referral Priority Routine Medications Medication SIG (Take, Route, Frequency, Duration) Notes Start Date End Date Status traMADol HCl 50 MG 1 tablet as needed Orally qid; Duration: 30 days As needed PRN 10/30/2024 Active Sucralfate 1 GM 1 tablet on an empty stomach Orally TID 10/03/2024 Active Remeron 30 MG 1.5 tablet at bedtime Orally Once a day 06/23/2023 Active Topamax 100 MG 1 tablet Orally BID; Duration: 30 days 06/23/2023 Active Test Strips - Test sugar Once daily; Duration: 90 days Dx: E11.9 03/22/2024 Active Hydrocortisone 10 MG 1 tablet with [...] day at bedtime; Duration: 30 days Active Ferrous Sulfate 325 (65 Fe) MG 1 tablet Orally weekly; Duration: 30 days 07/19/2023 Active FreeStyle Hunter 3 Sensor Use to monitor glucose multiple times daily DX Diabetes with hypoglycemia episodes- change once every 10 days; Duration: 30 days 10/14/2023 Active FreeStyle Hunter 3 [place] Use to monitor glucose levels multiple times daily DX Diabetes with hypoglycemic episodes; Duration: 365 days 10/14/2023 Active Hjecrdfnes-KLBY-Gctyopz e 50-325-40 MG TAKE 1 TABLET BY MOUTH EVERY 4 HOURS NEEDED FOR HEADACHE; Duration: 4 PRN 04/21/2024 Active Lexapro 20 MG 1 tablet Orally Once a day 06/23/2023 Active Levothyroxine Sodium 75 MCG TAKE 1 TABLET BY MOUTH EVERY MORNING ON AN EMPTY STOMACH FOR 30 DAYS; Duration: 90 Active Aspirin 81 MG 1 tablet Orally Once a day 11/14/2024 Active Triamcinolone Acetonide 0.1 % 1 application Externally bid 09/27/2024 Active Liothyronine Sodium 5 MCG 1 tablet on an empty stomach Orally Once a day; Duration: 30 days 06/23/2023 Active traZODone HCl 100 MG 1 tablet Orally bedtime 11/18/2023 Active Ranolazine ER 500 MG TAKE 1 TABLET BY MOUTH TWICE DAILY Oral; Duration: 30 Days Active Plavix 75 MG 1 tablet Orally Once a day 11/14/2024 Active Verapamil HCl 40 MG 1 tablet Oral every 8 hours; Duration: 30 days Active Rosuvastatin Calcium 40 MG TAKE 1 TABLET BY MOUTH AT BEDTIME Oral; Duration: 30 Days Active Metoprolol Succinate ER 25 MG Oral; Duration: 30 Days Active Colchicine 0.6 MG 1/2 tablet Oral every other day; Duration: 30 days Active Ondansetron 4 MG 1-2 tablet on the tongue and allow to dissolve Orally q4h; Duration: 30 days As needed 09/29/2023 Active Metoclopramide HCl 10 MG 1 tablet before meals Orally achs; Duration: 30 days 08/07/2024 Active Prucalopride Succinate 2 MG 1 tablet Orally Once a day; Duration: 30 days Active [employer] Ultra 2 w/Device USE TO MONITOR BLOOD GLUCOSE LEVELS DAILY; Duration: 30 Active Compazine 10 MG 1 tablet as needed Orally Three times a day 12/22/2023 Active fentaNYL 25 MCG/HR 1 patch to skin Transdermal Q 3 days K56.600 10/18/2024 Active Methocarbamol 500 MG TAKE 1.5 TABLETS BY MOUTH EVERY 6 HRS FOR 30 DAYS; Duration: 30 Active fentaNYL 12 MCG/HR 1 patch to skin Transdermal Q3d; Duration: 30 days with a 25mcg patch 10/17/2024 Active Social History Tobacco Use: Social History [...] Status W/U Status Risk Notes Problem Gastroparesis (957790488) Gastroparesis (K31.84) Active confirmed Problem Postgastric surgery syndrome (69932328) 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) Active confirmed Problem Asthma (178426791) Asthma (J45.909) Active conf irmed Problem Gastroesophageal reflux disease (145293709) GERD (gastroesophageal reflux disease) (K21.9) Active confirmed Problem Hypothyroidism (33594608) Hypothyroidism (E03.9) Active confirmed Problem Coronary artery disease (42893487) CAD (coronary artery disease) (I25.10) Active confirmed Problem Anxiety (93463262) Anxiety (F41.9) Active confi rmed Problem Migraine (10231079) Migraine (G43.909) Active confirmed Problem Irritable bowel syndrome (93410754) IBS (irritable bowel syndrome) (K58.9) Active confirmed Problem Generalized anxiety disorder (34665868) EDWAR (generalized anxiety disorder) (F41.1) Active confirmed Problem Lumbar radiculopathy (046965766) Lumbar radiculopathy (M54.16) Active confirmed Problem Allergic conjunctivitis (587112469) Allergic conjunctivitis (H10.10) Active confirmed Problem Acquired hypothyroidism (215452344) Acquired hypothyroidism (E03.9) Active confirmed Problem Hypoglycemia (541697385) Hypoglycemia (E16.2) Active confirmed Problem Anxiety disorder (565406599) Anxiety disorder (F41.9) Active confirmed Problem Neutropenia (505697888) Neutropenia (D70.9) Active confirmed Problem Sepsis (65154720) Sepsis (A41.9) Active confirm ed Problem Leukocytosis (692580833) Elevated white blood cell count (D72.829) Active confirmed Problem Edema (165314975) Facial edema (R60.0) Active confirmed Problem Gastrostomy present (593416907) PEG (percutaneous endoscopic gastrostomy) status (Z93.1) Active confirmed Problem Severe protein calorie malnutrition (371260500) Severe protein-calorie malnutrition (E43) Active confirmed Problem Disorder of endocrine system (140678389) 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.9) Active confirmed Problem Malnutrition of moderate degree (Baxter: 60% to less than 75% of standard weight) (79755219) Moderate malnutrition (E44.0) Active confirmed Problem Gastrostomy present (324159288) Feeding by G-tube (Z93.1) Active confirmed Problem Gastrostomy present (533404221) Gastrostomy in place (Z93.1) Active confirmed Problem Jejunostomy tube, device (physical object) (499898452) Jejunostomy tube present (Z93.4) Active confirmed Problem Intestinal obstruction (66566638) Partial intestinal obstruction, unspecified as to cause (K56.600) Active confirmed Vital Signs Blood pressure diastolic 80 mm Hg 11/14/2024 Height 66 in 11/14/2024 Blood pressure systolic 124 mm Hg 11/14/2024 Weight 186.6 lbs 11/14/2024 BMI 30.11 kg/m2 11/14/2024 Encounters Encounter Location Date Provider Diagnosis [address] [address] 01/10/2024 Brandyn Hoy GERD (gastroesophage al reflux disease) K21.9 ; Hypothyroidism E03.9 ; Anxiety F41.9 and IBS (irritable bowel syndrome) K58.[address] [address] 03/21/2024 Brandyn Hoy GERD (gastroesophage al reflux disease) K21.9 and Hypoglycemia E16.[address] [address] 11/18/2023 Brandyn Hoy Asthma J45.909 ; KEZIA D (gastroesophageal reflux disease) K21.9 ; IBS (irritable bowel syndrome) K58.9 and Hypoglycemia E16.[address] [address] 08/22/2024 Brandyn Hoy Gram negative sepsis A41.[address] [address] 09/11/2024 Brandyn Hoy Sepsis A41.[address] [address] 10/03/2024 Brandyn Hoy GERD (gastroesophage al reflux disease) K21.9 ; IBS (irritable bowel syndrome) K58.9 and Severe protein-calorie malnutrition E43 [address] [address] 11/14/2024 Brandyn Hoy CAD (coronary artery disease) I25.10 and Moderate malnutrition E44.[address] [address] 01/03/2024 Brandyn Hoy GERD (gastroesophage al reflux disease) K21.9 ; Severe protein-calorie malnutrition E43 ; Hypothyroidism E03.9 and Partial intestinal obstruction, unspecified as to cause K56.[address] [address] 04/10/2024 Brandyn Hoy Hypoglycemia E16.2 [facility] [address] [place] [facility] [place] [address] 04/19/2024 Brandyn Hoy Hypoglycemia E16.2 [facility] [address] [place] [place] [address] 08/07/2024 Brandyn Hoy GERD (gastroesophage al reflux disease) K21.9 ; Severe protein-calorie malnutrition E43 ; PEG (percutaneous endoscopic gastrostomy) status Z93.1 and Acquired hypothyroidism E03.9 [facility] [address] [place] [place] [address] 10/18/[address] [facility] [address] [place] [place] [address] 10/24/2024 Brandyn Hoy Sepsis A41.9 [facility] [address] [place] [facility] [address] 10/26/[address] [facility] [address] [place] [place] [address] 10/27/2024 Brandyn Hoy GERD (gastroesophage al reflux disease) K21.9 [facility] [address] [place] [place] [address] 10/27/[address] [facility] [address] [place] [place] [address] 11/14/2024 Brandyn Hoy [facility] [address] [place] [facility] [place] [address] 10/04/[address] [facility] [address] [place] [place] [address] 10/09/[address] [facility] [address] [place] [place] [address] 10/13/2024 Brandyn Hoy GERD (gastroesophage al reflux disease) K21.9 [facility] [address] [place] [place] [address] 10/17/2024 Brandyn Hoy IBS (irritable bowel syndrome) K58.9 [facility] [address] [place] [place] [address] 10/17/[address] [facility] [address] [place] [place] [address] 10/18/[address] [facility] [address] [place] [place] [address] 09/17/2024 Brandyn Hoy [facility] [address] [facility] [place] [address] 09/18/2024 Brandyn Hoy Partial intestinal obstruction, unspecified as to cause K56.600 [facility] [address] [place] [place] [address] 09/27/2024 Brandyn Galoy [facility] [address] [facility] [place] [address] 09/29/2024 Brandyn Hoy GERD (gastroesophage al reflux disease) K21.9 [facility] [address] [place] [place] [address] 10/03/2024 Brandyn Hoy IBS (irritable bowel syndrome) K58.9 [facility] [address] [place] [place] [address] 10/04/[address] [facility] [address] [place] [place] [address] 09/04/2024 Brandyn Hoy GERD (gastroesophage al reflux disease) K21.9 [facility] [address] [place] [place] [address] 09/04/[address] [facility] [address] [place] [place] [address] 09/04/[address] [facility] [address] [place] [place] [address] 09/06/[address] [facility] [address] [place] [place] [address] 09/14/2024 Brandyn Rosenthaly [facility] [address] [facility] [place] [address] 09/15/2024 Brandyn Hoy GERD (gastroesophage al reflux disease) K21.9 [facility] [address] [facility] [place] [address] 08/15/2024 Brandyn Hoy Partial intestinal obstruction, unspecified as to cause K56.600 [facility] [address] [facility] [place] [address] 08/15/[address] [facility] [address] [place] [place] [address] 08/15/2024 Brandyn Hoy [facility] [address] [place] [facility] [place] [address] 08/17/2024 Brandyn Hoy GERD (gastroesophage al reflux disease) K21.9 [facility] [address] [place] [place] [address] 08/21/[address] [facility] [address] [place] [place] [address] 08/31/2024 Brandyn Hoy GERD (gastroesophage al reflux disease) K21.9 [facility] [address] [place] [address] 07/21/2024 Brandyn Hoy Partial intestinal obstruction, unspecified as to cause K56.600 and GERD (gastroesophageal reflux disease) K21.9 [facility] [address] [place] [address] 07/21/2024 Branydn Hoy [facility] [address] [place] [facility] [place] [address] 07/31/2024 Brandyn Hoy [facility] [address] [place] [place] [address] 08/04/2024 Brandyn Hoy GERD (gastroesophage al reflux disease) K21.9 [facility] [address] [place] [place] [address] 08/09/2024 Brandyn Hoy Elevated white blood cell count D72.829 [facility] [address] [place] [place] [address] 08/10/2024 Brandyn Hoy [facility] [address] [place] [address] 06/05/2024 Brandyn Hoy [facility] [address] [place] [address] 06/12/2024 Brandyn Hoy GERD (gastroesophage al reflux disease) K21.9 [facility] [address] [place] [address] 06/23/2024 Brandyn Hoy Partial intestinal obstruction, unspecified as to cause K56.600 and GERD (gastroesophageal reflux disease) K21.9 [facility] [address] [facility] [place] [address] 07/03/[address] [facility] [address] [place] [place] [address] 07/06/2024 Brandyn Hoy [facility] [address] [place] [address] 07/07/2024 Brandyn Hoy GERD (gastroesophage al reflux disease) K21.9 [facility] [address] [place] [address] 05/04/2024 Brandyn Hoy GERD (gastroesophage al reflux disease) K21.9 [facility] [address] [place] [address] 05/10/2024 Brandyn Hoy [facility] [address] [place] [address] 05/17/2024 Brandyn Hoy GERD (gastroesophage al reflux disease) K21.9 [facility] [address] [place] [address] 05/22/[address] [facility] [address] [place] [address] 05/26/2024 Brandyn Hoy Partial intestinal obstruction, unspecified as to cause K56.600 [facility] [address] [place] [address] 05/30/2024 Brandyn Hoy GERD (gastroesophage al reflux disease) K21.9 [facility] [address] [place] [address] 04/18/2024 Brandyn Hoy Hypoglycemia E16.2 [facility] [address] [place] [address] 04/21/2024 Brandyn Hoy GERD (gastroesophage al reflux disease) K21.9 [facility] [address] [place] [address] 04/21/2024 Brandyn Hoy [facility] [address] [facility] [place] [address] 04/27/2024 Brandyn Hoy Partial intestinal obstruction, unspecified as to cause K56.600 [facility] [address] [place] [address] 04/28/2024 Brandyn Hoy [facility] [address] [facility] [place] [address] 05/02/2024 Brandyn Hoy [facility] [address] [facility] [place] [address] 04/04/2024 Brandyn Hoy Partial intestinal obstruction, unspecified as to cause K56.600 [facility] [address] [place] [place] [address] 04/06/2024 Brandyn Hoy Partial intestinal obstruction, unspecified as to cause K56.600 [facility] [address] [facility] [place] [address] 04/07/2024 Brandyn Hoy GERD (gastroesophage al reflux disease) K21.9 [facility] [address] [place] [address] 04/10/[address] [facility] [address] [place] [place] [address] 04/13/[address] [facility] [address] [place] [place] [address] 04/18/[address] [facility] [address] [place] [address] 03/22/2024 Brandyn Hoy [facility] [address] [facility] [place] [address] 03/24/2024 Brandyn Hoy GERD (gastroesophage al reflux disease) K21.9 [facility] [address] [facility] [place] [address] 03/27/2024 Brandyn Hoy GERD (gastroesophage al reflux disease) K21.9 [facility] [address] [place] [place] [address] 03/29/2024 Brandyn Hoy [facility] [address] [place] [place] [address] 2024 Brandyn Hoy Partial intestinal obstruction, unspecified as to cause K56.600 [facility] [address] [place] [address] 04/04/2024 Brandyn Hoy Partial intestinal obstruction, unspecified as to cause K56.600 [facility] [address] [facility] [place] [address] 03/03/2024 Brandyn Hoy [facility] [address] [facility] [place] [address] 03/06/2024 Brandyn Hoy Partial intestinal obstruction, unspecified as to cause K56.600 [facility] [address] [facility] [place] [address] 03/06/[address] [facility] [address] [place] [place] [address] 03/13/[address] [facility] [address] [place] [address] 03/13/2024 Brandyn Hoy GERD (gastroesophage al reflux disease) K21.9 [facility] [address] [place] [address] 03/21/2024 Brandyn Hoy [facility] [address] [facility] [place] [address] 02/07/2024 Brandyn Hoy GERD (gastroesophage al reflux disease) K21.9 [facility] [address] [place] [address] 02/07/2024 Brandyn Hoy [facility] [address] [facility] [place] [address] 02/11/2024 Brandyn Hoy [facility] [address] [facility] [place] [address] 02/14/2024 Brandyn Hoy [facility] [address] [facility] [place] [address] 02/21/2024 Brandyn Hoy GERD (gastroesophage al reflux disease) K21.9 [facility] [address] [place] [address] 03/03/2024 Brandyn Hoy GERD (gastroesophage al reflux disease) K21.9 [facility] [address] [facility] [place] [address] 01/26/2024 Brandyn Hoy GERD (gastroesophage al reflux disease) K21.9 [facility] [address] [place] [place] [address] 01/31/[address] [facility] [address] [place] [address] 01/31/[address] [facility] [address] [place] [address] 02/02/2024 Brandyn Hoy [facility] [address] [facility] [place] [address] 02/04/[address] [facility] [address] [place] [address] 02/04/2024 Brandyn Hoy Partial intestinal obstruction, unspecified as to cause K56.600 [facility] [address] [facility] [place] [address] 01/10/2024 Brandyn Hoy GERD (gastroesophage al reflux disease) K21.9 [facility] [address] [place] [address] 01/11/[address] [facility] [address] [place] [address] 01/18/2024 Brandyn Rosenthaly [facility] [address] [place] [address] 01/18/2024 Brandyn Alas Anxiety F41.9 [facility] [address] [place] [address] 01/19/[address] [facility] [address] [place] [address] 01/26/[address] [facility] [address] [place] [address] 12/27/[address] [facility] [address] [place] [address] 12/30/[address] [facility] [address] [place] [address] 12/31/2023 Brandyn Evette [facility] [address] [place] [address] 01/03/[address] [facility] [address] [place] [address] 01/03/2024 Brandyn Alas Partial intestinal obstruction, unspecified as to cause K56.600 [facility] [address] [place] [address] 01/05/[address] [facility] [address] [place] [address] 11/30/2023 Brandyn Rosenthaly Intractable abdomina l pain R10.9 and Abdominal pain R10.9 [facility] [address] [place] [address] 12/06/2023 Brandyn [facility] [address] [place] [address] 12/06/2023 Brandyn Alas [facility] [address] [place] [address] 12/20/2023 Brandyn Alas [facility] [address] [place] [place] [address] 12/22/[address] [facility] [address] [place] [place] [address] 12/23/2023 Brandyn Alas Testosterone deficie ncy E29.1 [facility] [address] [place] [place] [address] 11/22/2023 Brandyn Alas Allergic conjunctivi tis H10.10 [facility] [address] [place] [place] [address] 11/23/2023 Brandyn Alas Jejunostomy tube pre sent Z93.4 [facility] [address] [place] [address] 11/26/2023 Brandyn Alas Low testosterone lev el in female R79.89 [facility] [address] [place] [place] [address] 11/29/[address] [facility] [address] [place] [place] [address] 11/30/2023 Brandyn Alas Assessments Encounter Date Diagnosis (ICD Code) Assessment Notes Treatment Notes Treatment Clinical Notes Section Notes 11/14/2024 CAD (coronary artery disease) (ICD-10 - I25.10) 11/14/2024 Moderate malnutrition (ICD-10 - E44.0) skipping feding tube 11/22/2023 Allergic conjunctivitis (ICD-10 - H10.10) 11/23/2023 Jejunostomy tube present (ICD-10 - Z93.4) 11/26/2023 Low testosterone level in female (ICD-10 - R79.89) 11/30/2023 Abdominal pain (ICD-10 - R10.9) 11/30/2023 Intractable abdominal pain (ICD-10 - R10.9) 12/23/2023 Testosterone deficiency [...] (gastroesophageal reflux disease) (ICD-10 - K21.9) 11/18/2023 Asthma (ICD-10 - J45.909) 11/18/2023 GERD [...] 08/07/2024 Severe protein-calorie malnutrition (ICD-10 - E43) 08/22/2024 Gram negative sepsis (ICD-10 - A41.50) 09/11/2024 Sepsis (ICD-10 - A41.9) 10/03/2024 GERD (gastroesophageal reflux disease) (ICD-10 - K21.9) 10/03/2024 IBS (irritable bowel syndrome) (ICD-10 - K58.9) 07/21/2024 Partial intestinal obstruction, unspecified as to [...] GERD (gastroesophageal reflux disease) (ICD-10 - K21.9) 09/18/2024 Partial intestinal obstruction, unspecified as to cause (ICD-10 - K56.600) 09/29/2024 GERD (gastroesophageal reflux disease) (ICD-10 - K21.9) 10/03/2024 IBS (irritable bowel syndrome) (ICD-10 - K58.9) 10/13/2024 GERD (gastroesophageal reflux disease) (ICD-10 - K21.9) 10/17/2024 IBS (irritable bowel syndrome) (ICD-10 - K58.9) 10/24/2024 Sepsis (ICD-10 - A41.9) 10/27/2024 GERD (gastroesophageal reflux disease) (ICD-10 - K21.9) 06/23/2024 Partial intestinal obstruction, unspecified as to cause (ICD-10 - K56.600) 07/07/2024 GERD (gastroesophageal reflux disease) (ICD-10 - K21.9) 07/21/2024 GERD (gastroesophageal reflux disease) (ICD-10 - K21.9) 08/07/2024 PEG (percutaneous endoscopic gastrostomy) status (ICD-10 - Z93.1) 10/03/2024 Severe protein-calorie malnutrition (ICD-10 - E43) 01/10/2024 Anxiety (ICD-10 - F41.9) 01/03/2024 Hypothyroidism (ICD-10 - E03.9) 11/18/2023 IBS (irritable bowel syndrome) (ICD-10 - K58.9) 06/23/2024 GERD (gastroesophageal reflux disease) (ICD-10 - K21.9) 11/18/2023 Hypoglycemia (ICD-10 - E16.2) 01/10/2024 IBS (irritable bowel syndrome) (ICD-10 - K58.9) 08/07/2024 Acquired hypothyroidism (ICD-10 - E03.9) 01/03/2024 Partial intestinal obstruction, unspecified as to cause (ICD-10 - K56.600) Plan Of Treatment Pending Test Test Name Order Date UA (URINALYSIS, COMPLETE) 07/30/2023 ESR 08/03/2023 Urine Culture 07/30/2023 RHEUMATOID PANEL 08/03/2023 XR Abdomen KUB 1 View 11/04/2023 TESTOSTERONE, FREE AND TOTAL 11/26/2023 [facility] - PROLACTIN 11/18/2023 AMYLASE 01/10/2024 CBC AUTO DIFF 01/10/2024 CBC AUTO DIFF 11/14/2024 CRP 08/03/2023 ESTRADIOL 11/18/2023 LIPASE 01/10/2024 PROF [...] KUB 1 VIEW 11/23/2023 Blood Culture 1 08/22/2024 Blood Culture 2 09/11/2024 BLOOD CULTURE 10/24/2024 Sjogren's Ab, Anti-SS-A/-SS-B 08/03/2023 US abdomen complete 09/05/2023 US abdomen complete 09/06/2023 Insurance Providers Payer Name Payer Address Payer Phone Subscriber Number Group Number Insured Name Patient Relationship to Insured Coverage Start Date Coverage End Date [employer] [place] [employer] [address] [address] [place] [address] [id number] Juan Garcia Self - patient is the insured Medications Administered Medication Instructions Date of Administration Dosage Notes Ceftriaxone 1 gram 08/23/2023 1 g 1 gram Dexamethasone, 4mg/mL 08/23/2023 12 mg 12 Medical (General) History Medical History History ICD Code IBS (irritable bowel syndrome) K58.9 Anxiety F41.9 Asthma J45.909 GERD (gastroesophageal reflux disease) K 21.9 Migraine G43.909 Hypothyroidism E03.9 Surgical History Surgery Date(Month/Year) Hematoma Surgery 2024 Port Replacement 2024 J Tube removal 2024 [facility] Surgery 02/2023 CHOLECYSTECTOMY APPENDECTOMY DELIVERYx3 Gastric bypass 01/2022 Hospitalization History Reason Date(Month/Year) Broken Port/ Bacteremia 09/2024 Hypoglycemia/ Bowel Obstruction 02/07 [facility]- Hypoglycemia 01/08 [facility]- malnutrition, DM 06/2023 see above- [facility] [place] [facility] 10/2024 Sepsis 08/2024
--- OUTSIDE RECORDS SUMMARY | 2024-11-14 16:44 | XMS_ITS | Clinical Summary ---
Author Organization [email or web address] Address [id number] [address] [place] [address] Care Team Providers Care Manager [employer] Name Role Phone No Pcp, No Pcp [...] Noted Date Diagnosed Date Hypothyroidism affecting in [facility] 09/22/2017 Family History Medical History Relation [...] on file Insurance [employer] Care Teams Manager [employer] Relationship Specialty Start Date End Date No Pcp, [place] [address] PCP - General Family Medicine 09/22/17
--- OUTSIDE RECORDS SUMMARY | 2024-11-14 16:48 | XMS_ITS | Encounter Summary ---
Author Organization [facility] Address [address] [place] [address] Care Team Providers Care Senior Java Developer Name Role Phone Thomas Alas MD Primary Care Provider [phone] Encounter Details Date Type Department Care Team (Latest Contact Info) Description 11/09/2024 Travel Social History Tobacco Use Types Packs/Day [...] any time in the past 12 m [facility], were you homeless or living in a senior living (including now)? No 11/09/2024 Hunger Vital Sign [...] Question Answer Date of Assessment Author BP 110/68 11/09/2024 9:28 PM EDT Diamond Cardoza RN * Question Answer Date of Assessment Author Pulse 87 11/09/2024 8:00 PM EDT Diamond Cardoza RN Heart Rate Source Monitor 11/09/2024 8:00 PM EDT Diamond Cardoza RN Patient Position Sitting 11/09/2024 8:00 PM EDT R oseDiamond RN * Kiera Fall Risk Question Answer Date of Assessment Author History of Falling, Immediat e or Within 3 Months 0 11/09/2024 8:00 PM EDT Diamond Cardoza RN Secondary Diagnosis 15 11/09/2024 8:00 PM ED T Diamond Cardoza RN Ambulatory Aid 0 11/09/2024 8:00 PM EDT Diamond Newman RN Intravenous Therapy/Heparin Lock 20 11/10/19 8:00 PM EDT Diamond Cardoza RN Gait/Transferring 0 11/09/2024 8:00 PM EDT Diamond Cardoza RN Mental Status 0 11/09/2024 8:00 PM EDT Diamond Cardoza RN Morse Fall Risk Score 35 11/09/2024 8:00 PM EDT Diamond Cardoza RN * Cyrus Scale Question Answer Date of Assessment Author Cyrus No Risk Interventions Continue to assess patient according to level of care 11/09/2024 8:00 PM EDT Diamond Cardoza RN Sensory Perceptions 4 11/09/2024 8:00 PM ED T Diamond Cardoza RN Moisture 4 11/09/2024 8:00 PM EDT Diamond Cardoza RN Activity 3 11/09/2024 8:00 PM EDT Diamond Cardoza RN Mobility 3 11/09/2024 8:00 PM EDT Diamond Cardoza RN Nutrition 3 11/09/2024 8:00 PM EDT Diamond Cardoza RN Friction and Shear 3 11/09/2024 8:00 PM EDT Diamond Cardoza RN Cyrus Scale Score 20 11/09/2024 8:00 PM EDT Diamond Cardoza RN * Patient's Stated Pain Goal Answer Date of Assessment Author No pain 11/09/2024 10:04 PM EDT Palmer Cardoza RN * [place] Fall Risk Interventions Question Answer Date of Assessment Author [place] Fall Risk Interventions Complete 025 8:00 PM EDT Diamond Cardoza RN * Pain Assessment Timer Question Answer Date of Assessment Author Restart Pain Assessment Timer Yes 11/09/2024 11:04 PM EDT Diamond Cardoza RN * Sepsis Model Scores Question Answer Date of Assessment Author Early Detection of Sepsis Score 0.21 12:15 PM EDT Delano Guzman * Pain Assessment Question Answer Date of Assessment Author Pain Location Chest 11/09/2024 1:38 PM EDT Kimberlee Allen RN Pain Interventions Medication (See MAR) 11/09/2024 8:0 5 PM EDT Diamond Cardoza RN Pain Descriptors Squeezing;Sharp 11/09/2024 1:38 PM ED T Kimberlee Allen RN Pain Onset Progressive 11/09/2024 1:38 PM EDT Kimberlee Og RN Pain Frequency Intermittent 11/09/2024 1:38 PM EDT Kimberlee Britton RN Response to Interventions improved 2024 11:04 PM EDT Diamond Cardoza RN Pain Type Acute pain 11/09/2024 1:38 PM EDT Kimberlee Og RN Clinical Progression Gradually worsening 11/09/2024 8: 05 PM EDT Diamond Cardoza RN Pain Score 4 11/09/2024 11:04 PM EDT Diamond Cardoza RN Pain Assessment 0-10 11/09/2024 8:05 PM EDT Diamond Alexander se, RN * Patient Behaviors Answer Date of Assessment Author Facial grimacing 11/09/2024 1:38 PM EDT Kimberlee Allen RN * Deterioration Index Score Question Answer Date of Assessment Author Deterioration Index Score 20.96 11/09/2024 12:1 5 PM EDT Chronicles, [employer] * Question Answer Date of Assessment Author BP 110/68 11/09/2024 9:28 PM EDT Diamond Cardoza RN * Head, Ears, Eyes, Nose, and Throat (HEENT) Question Answer Date of Assessment Author Head, Ears, Eyes, Nose, and Throat (WDL) X 11/09/2024 8:00 PM EDT Diamond Cardoza RN R Eye Mildly impaired vision;Corrective lenses 11/09/2024 8:00 PM EDT Diamond Cardoza RN L Eye Mildly impaired vision;Corrective lenses 11/09/2024 8:00 PM EDT Diamond Cardoza RN * Question Answer Date of Assessment Author MAP (mmHg) 84 11/09/2024 8:00 PM EDT Diamond Cardoza RN * Short Portable Mental Status Question Answer Date of Assessment Author What are the date, month, year? 0 8:00 PM EDT Diamond Cardoza RN What is the day of the week? 0 11/09/2024 8 :00 PM EDT Diamond Cardoza RN What is the name of this place? 0 8:00 PM EDT Diamond Cardoza RN What is your phone number? 0 11/09/2024 8:0 0 PM EDT Diamond Cardoza RN How old are you? 0 11/09/2024 8:00 PM EDT Diamond Ferris RN When were you born? 0 11/09/2024 8:00 PM ED T Diamond Cardoza RN Who is the current president? 0 11/09/2024 8:00 PM EDT Diamond Cardoza RN Who was the president before him? 0 025 8:00 PM EDT Diamond Cardoza RN What was your mother's maiden name? 0 11/09 8:00 PM EDT Diamond Cardoza RN Can you count backward from 20 by 3s? 0 8:00 PM EDT Diamond Cardoza RN Short Portable Mental Score 0 11/09/2024 8: 00 PM EDT Diamond Cardoza RN * Fall Risk Level Question Answer Date of Assessment Author Mobility zone Low (Green Zone) 11/09/2024 8:00 PM EDT Diamond Cardoza RN Qureshi fall risk zone Low (Green Zone) 11/09/2024 8:00 PM EDT Diamond Cardoza RN Mental status questionaire zone Low (Green Zone) 11/09/2024 8:00 PM EDT Diamond Cardoza RN * Skin Assessment Sign off Question Answer Date of Assessment Author Dual Sign-off - Admission/Transfer Chichi Allen RN 11/09/2024 2:10 PM EDT Kimberlee Allen R N Any new wounds identified on admission/transfer? No 11/09/2024 2:10 PM EDT Kimberlee Allen RN Provider notified of new wound Other (Comment) 11/09/2024 2:10 PM EDT Kimberlee Allen R N * 6 Clicks (Mobility) Question Answer Date of Assessment Author Help from another person cli mbing 3-5 steps with a railing 3 11/09/2024 8:00 PM EDT Diamond Cardoza RN Help from another person tur jose from your back to your side while in a flat bed without using bedrails 4 11/09/2024 8:00 PM EDT Hallie Cardoza sa, RN Help from another person mov ing from lying on your back to sitting on the side of a flat bed without using bedrails 4 11/09/2024 8:00 PM EDT Diamond Cardoza RN Help from another person mov ing to and from a bed to a chair (including a wheelchair) 4 11/09/2024 8:00 PM EDT Diamond Cardoza RN Help from another person sta nding up from a chair using your arms (e.g. wheelchair or bedside chair) 4 11/09/2024 8:00 PM EDT Palmer Cardoza RN Help from another person to walk in hospital room 3 11/09/2024 8:00 PM EDT Diamond Cardoza RN Mobility 6 Clicks T-Score 22 11/09/2024 8:00 PM EDT Diamond Cardoza RN * Question Answer Date of Assessment Author SpO2 100 11/09/2024 8:00 PM EDT Diamond Cardoza RN * Question Answer Date of Assessment Author Temp 97.9 11/09/2024 8:00 PM EDT Diamond Cardoza RN Temp src Temporal 11/09/2024 8:00 PM EDT Diamond Cardoza RN Pulse 87 11/09/2024 8:00 PM EDT Diamond Cardoza RN Resp 20 11/09/2024 8:00 PM EDT Diamond Cardoza RN Heart Rate Source Monitor 11/09/2024 8:00 PM EDT Diamond Cardoza RN BP Location Left arm 11/09/2024 8:00 PM EDT Diamond Cardoza RN BP Method Automatic 11/09/2024 8:00 PM EDT Diamond Cardoza RN Cardiac Rhythm NSR 11/09/2024 8:00 PM EDT Diamond Newman RN Pulse rate from Plethysmogram (bpm) 92 11/09 8:00 PM EDT Diamond Cardoza RN Patient Position Sitting 11/09/2024 8:00 PM EDT R oseDiamond RN * Question Answer Date of Assessment Author Swallow Able to swallow gina ds and liquids without difficulty 11/09/2024 8:00 PM EDT Diamond Cardoza RN * Question Answer Date of Assessment Author Cardiac Regularity Regular 11/09/2024 8:00 PM EDT Diamond Cardoza RN Field Traffic Investigator Status On 11/09/2024 8:00 PM EDT Diamond Cardoza RN Telemetry Box Number [id number] 11/09/2024 8:00 PM E DT Diamond Cardoza RN Jugular Venous Distention (JVD) No 11/09/2024 8:00 PM EDT Diamond Cardoza RN Cardiac Symptoms Other (Comment) 11/09/2024 8:00 PM ED T Diamond Cardoza RN Heart Sounds S1, S2 11/09/2024 8:00 PM EDT Diamond Cardoza RN * Gastrointestinal Question Answer Date of Assessment Author Last BM Date [id number] 11/09/2024 8:00 PM EDT Diamond Cardoza RN Abdominal Tenderness Soft;Nontender 11/09/2024 8:00 PM EDT Diamond Cardoza RN Bowel Sounds (All Quadrants) Active 11/09/2024 8 :00 PM EDT Diamond Cardoza RN Gastrointestinal (WDL) X 11/09/2024 8:00 PM EDT Diamond Cardoza RN Abdomen Inspection Soft;Nondistended 11/09/2024 8:00 P M EDT Diamond Cardoza RN Gastrointestinal Symptoms Constipation 11/09/2024 8:00 PM EDT Diamond Cardoza RN Bowel Sounds All quadrants 11/09/2024 8:00 PM EDT Diamond Cardoza RN * Peripheral Vascular Question Answer Date of Assessment Author Peripheral Vascular (WDL) WDL 11/09/2024 8:00 PM EDT Diamond Cardoza RN * Musculoskeletal Question Answer Date of Assessment Author Musculoskeletal (WDL) L 11/09/2024 8:00 PM EDT Diamond Cardoza RN * Psychosocial Question Answer Date of Assessment Author Psychosocial (WDL) [facility] 11/09/2024 8:00 PM EDT Diamond Cardoza RN * Qureshi Fall Risk Question Answer Date of Assessment Author History of Falling, Immediat e or Within 3 Months 0 11/09/2024 8:00 PM EDT Diamond Cardoza RN Secondary Diagnosis 15 11/09/2024 8:00 PM ED T Diamond Cardoza RN Ambulatory Aid 0 11/09/2024 8:00 PM EDT Diamond Newman RN Intravenous Therapy/Heparin Lock 20 11/10/19 8:00 PM EDT Diamond Cardoza RN Gait/Transferring 0 11/09/2024 8:00 PM EDT Diamond Cardoza RN Mental Status 0 11/09/2024 8:00 PM EDT Diamond Cardoza RN Qureshi Fall Risk Score 35 11/09/2024 8:00 PM EDT Diamond Cardoza RN * Cyrus Scale Question Answer Date of Assessment Author Cyrus Milner Risk Interventions Continue to assess patient according to level of care 11/09/2024 8:00 PM EDT Diamond Cardoza RN Sensory Perceptions 4 11/09/2024 8:00 PM ED T Diamond Cardoza RN Moisture 4 11/09/2024 8:00 PM EDT Diamond Cardoza RN Activity 3 11/09/2024 8:00 PM EDT Diamond Cardoza RN Mobility 3 11/09/2024 8:00 PM EDT Diamond Cardoza RN Nutrition 3 11/09/2024 8:00 PM EDT Diamond Cardoza RN Friction and Shear 3 11/09/2024 8:00 PM EDT Diamond Cardoza RN Cyrus Scale Score 20 11/09/2024 8:00 PM EDT Diamond Cardoza RN * Cardiac Question Answer Date of Assessment Author Cardiac ([facility]) [facility] 11/09/2024 2:01 PM EDT Kimberlee Lara RN Telemetry Yes 11/09/2024 11:00 AM EDT Kimberlee Lara RN * Respiratory Question Answer Date of Assessment Author Respiratory ([facility]) [facility] 11/09/2024 2:01 PM EDT Kimberlee Allen RN * Charting Type Question Answer Date of Assessment Author Charting Type Shift assessment 11/09/2024 8:00 PM EDT Diamond Cardoza RN * Patient's Stated Pain Goal Answer Date of Assessment Author No pain 11/09/2024 10:04 PM EDT Palmer Cardoza RN * Cultural Requests During Hospitalization Answer Date of Assessment Author none 11/09/2024 8:00 PM EDT Fausto Cardoza RN * Spiritual Requests During Hospitalization Answer Date of Assessment Author sabianism 11/09/2024 8:00 PM EDT Fausto Cardoza RN * Genitourinary Question Answer Date of Assessment Author Genitourinary ([facility]) [facility] 11/09/2024 8:00 PM ED T Diamond Cardoza RN * Neurological Question Answer Date of Assessment Author Neuro (WDL) WDL 11/09/2024 2:01 PM EDT Kimberlee Og RN * Patient Monitoring Question Answer Date of Assessment Author Frequency of Checks Twice per hour, standard 8:00 PM EDT Diamond Cardoza RN * Safe Environment Question Answer Date of Assessment Author Arm Bands On ID;Allergies 11/09/2024 8:00 PM EDT Diamond Cardoza RN Side Rails/Bed Safety 2/4 11/09/2024 8:00 PM EDT Diamond Cardoza RN Bed Alarms Off 11/09/2024 8:00 PM EDT Diamond Cardoza RN The Patient's Environment is Safe Yes 11/09/2024 8:00 PM EDT Diamond Cardoaz RN * Mobility Question Answer Date of Assessment Author Resting chair 11/09/2024 8:00 PM EDT Diamond Cardoza RN Activity Performed Chair 11/09/2024 8: 00 PM EDT Diamond Cardoza RN Ambulation Response Tolerated well 11/09/2024 1 2:50 PM EDT Amish Thomas, PCT Repositioned Turns self 11/09/2024 8:00 PM EDT Diamond Cardoza RN Level of Assistance Standby assist, set- up cues, supervision of patient - no hands on 11/09/2024 8:00 PM EDT Diamond Cardoza RN Head of Bed Elevated Self regulated 11/09/2024 8:00 PM EDT Diamond Cardoza RN Heels/Feet Foot of bed elevated 11/09/2024 8:00 PM EDT Diamond Cardoza RN Range of Motion Active;All extremities 8:00 PM EDT Diamond Cardoza RN Anti-Embolism Devices Bilateral;Sequenti al compression devices, below knee 11/09/2024 8:00 PM EDT Diamond Cardoza RN Anti-Embolism Intervention Off 11/09/2024 8:00 PM EDT Diamond Cardoza RN Patient's mobility zone Zone 5 11/10/19 8:00 PM EDT Diamond Cardoza RN Positioning Frequency Able to turn self 11/10/19 8:00 PM EDT Diamond Cardoza RN * Hygiene Question Answer Date of Assessment Author Skin Care Per self 11/09/2024 11:00 AM JUNT Kimberlee Allen RN Hygiene Per self 11/09/2024 11:00 AM EDT Kimberlee Allen RN Oral Care Per self 11/09/2024 11:00 AM JUNT Kimberlee Allen RN Level of Assistance Minimal assist 11/09/2024 8:00 PM EDT Diamond Cardoza RN Is Patient Total Care? No 11/09/2024 8:00 PM EDT Diamond Cardoza RN Incontinence Protective Devices None 11/09/2024 11:00 AM EDT Kimberlee Allen RN CHG (Chlorhexidine Gluconate) Hygiene Wipes;Other (Comment) 11/09/2024 2:38 PM EDT Kimberlee Allen RN * Precautions Question Answer Date of Assessment Author Precautions None 11/09/2024 8:00 PM EDT Diamond Cardoza RN * ADL Screening Question Answer Date of Assessment Author Do you snore or wake up gasping for air? Yes 11/09/2024 12:17 PM EDT Natalie Whitley RN Can you bring in your CPAP/BiPAP from home? No 11/09/2024 12:17 PM EDT Sidney Whitley RN Patient's Vision Adequate to Safely Complete [...] Walks in Home Independent 11/09/2024 12:17 PM JUNT Natalie Garvey RN Weakness of Legs None 11/09/2024 12:17 PM Natalie Ford RN Weakness of Arms/Hands None 11/09/2024 12:17 P M Natalie Ford RN Hearing - Right Ear Functional 11/09/2024 12:17 PM E DT Natalie Whitley RN Hearing - Left Ear Functional 11/09/2024 12:17 PM ED T Natalie Whitley RN Which is your dominant hand? Right 11/09/2024 1 2:17 PM Natalie Ford RN * Consults Question Answer Date of Assessment Author Spiritual Care Consult Needed No 11/09/2024 12:18 PM Natalie Ford RN Social Services Consult Needed No 11/09/2024 12:18 PM Natalie Ford RN Palliative Care Consult Needed No 11/09/2024 12:18 PM Natalie Ford RN * Therapy Consults Question Answer Date of Assessment Author PT Evaluation Needed 2 11/09/2024 12:17 PM Natalie Ford RN OT Evaluation Needed 2 11/09/2024 12:17 PM Natalie Ford RN SUPERVISOR LIQUEFACTION Evaluation Needed 2 11/09/2024 12:17 PM JUNT Natalie Whitley RN * Assistive Devices Question Answer Date of Assessment Author Assistive Devices Eyeglasses 11/09/2024 12:17 PM JUNT Natalie Whitley RN * Provider Notification Question Answer Date of Assessment Author Provider Role Resident 11/09/2024 11:30 PM EDDiamond Gaspar RN Communication Comments Clarified NPO ord er with provider, sips with medications okay. 11/09/2024 11:30 PM Diamond Harper RN Provider Name Cardiology 11/09/2024 11:30 PM JUNT Diamond Cardoza RN Method of Communication Call 11/10/19 11:30 PM EDT Diamond Cardoza RN Reason for Communication Evaluate 11:30 PM EDT Diamond Cardoza RN Response No new orders 11/09/2024 11:30 PM EDT Diamond Cardoza RN Notification Time [id number] 11/09/2024 11: 30 PM EDT Diamond Cardoza RN * [place] Fall Risk Interventions Question Answer Date of Assessment Author [place] Fall Risk Interventions Complete 8:00 PM EDT Diamond Cardoza RN * Suicidal Ideation Question Answer Date of Assessment Author 1. Wish to be (Lifetime) No 11/09/2024 12:19 PM EDT Natalie Whitley RN 2. Non-Specific Active Suici martha Thoughts (Lifetime) No 11/09/2024 12:19 PM EDT Natalie Whitley RN * Is this patient currently opioid tolerant (receiving at least 60 mg morphine equivalent per day (MME/day) for past 7 days or longer)? Answer Date of Assessment Author Opioid Tolerant 11/09/2024 12:28 PM EDT Shanna Lamas DO * Pain Assessment Question Answer Date of Assessment Author Pain Location Chest 11/09/2024 1:38 PM EDT Kimberlee Lara RN Pain Interventions Medication (See MAR) 11/09/2024 8:0 5 PM EDT Diamond Cardoza RN Pain Descriptors Squeezing;Sharp 11/09/2024 1:38 PM ED T Kimberlee Allen RN Pain Onset Progressive 11/09/2024 1:38 PM EDT Kimberlee Og RN Pain Frequency Intermittent 11/09/2024 1:38 PM EDT Kimberlee Britton RN Response to Interventions improved 2024 11:04 PM EDT Diamond Cardoza RN Pain Type Acute pain 11/09/2024 1:38 PM EDT Kimberlee Og RN Clinical Progression Gradually worsening 11/09/2024 8: 05 PM EDT Diamond Cardoza RN Pain Score 4 11/09/2024 11:04 PM EDT Diamond Cardoza RN Pain Assessment 0-10 11/09/2024 8:05 PM EDT Diamond Alexander se, RN * Nutrition Question Answer Date of Assessment Author Diet Type NPO 11/09/2024 8:00 PM EDT Diamond Cardoza RN Feeding Able to feed self 11/09/2024 8:00 PM EDT Diamond Cardoza RN Appetite Fair 11/09/2024 8:00 PM EDT Diamond Cardoza RN * Integumentary Question Answer Date of Assessment Author Skin Color Appropriate for race 11/09/2024 8:00 PM E DT Diamond Cardoza RN Skin Condition/Temp Warm;Dry 11/09/2024 8:00 PM ED T Diamond Cardoza RN Skin Integrity Other (Comment) 11/09/2024 8:00 PM EDT Diamond Cardoza RN Skin Turgor Non-tenting 11/09/2024 8:00 PM EDT Diamond Cardoza RN Integumentary (WDL) X 11/09/2024 8:00 PM ED T Diamond Cardoza RN * Question Answer Date of Assessment Author Patient Goal for Treatment dc 11/09/2024 8:0 0 PM EDT Diamond Cardoza RN * Patient Behaviors Answer Date of Assessment Author Facial grimacing 11/09/2024 1:38 PM EDT Kimberlee Allen RN * Care Plan - Safety Goals Question Answer Date of Assessment Author Free from fall injury Assess patient frequently for physical needs;Identify cognitive and physical deficits and behaviors that affect risk of falls;[place]incy fall precautions as indicated by assessment;Educate patient/family on patient safety, including physical limitations;Instruct patient to call for assistance with activity based on assessment;Modify environment to reduce risk of injury;Consider OT/PT consult to assist with strengthening/mobility 11/09/2024 8:00 PM JUNT Diamond Cardoza RN * Modified Malnutrition Screening Tool (MST) Question Answer Date of Assessment Author Have you recently lost weigh t without trying? 0 11/09/2024 12:16 PM JUNT Natalie Whitley RN Have you been eating [...] Whitley RN documented as of this encounter Plan of Treatment Upcoming Encounters Date Type Department Care Team (Late st Contact Info) Description 11/20/2024 2:30 PM EDT Follow-Up [facility] Vascular and Endovascular Surgery [address] [place] [id number] Delphine Du NP [address] [facility] [place] [address] [place], [place] [id number] 11/28/2024 11:00 AM EDT Follow-Up [facility] [address] [place] [address] Wali Collins MD [address] [place] [address] 12/04/2024 10:00 AM EDT Office Visit [facility] [address] [place] [address] Katie Altamirano MD [address] [facility] [place] [address] documented as of this encounter Visit Diagnoses Not on filedocumented in this encounter Care Teams Senior Java Developer Relationship Specialty Start Date End Date Thomas Alas MD [address] [facility] [address] [address] PCP - General Family Medicine 08/17/24 documented as of this encounter
--- OUTSIDE RECORDS SUMMARY | 2024-11-14 16:48 | XMS_ITS ---
Author Organization [facility] Address [address] [place] [address] Care Team Providers Care County Manager Name Role Phone Thomas Alas MD Primary Care Provider [phone] Active Problems Problem Noted Date Diagnosed Date Disorder of endocrine system 11/09/2024 Lumbar radiculopathy 11/09/2024 Migraine 11/09/2024 Severe protein-calorie malnu trition (Baxter: less than 60% of standard weight) 11/09/2024 Pseudoaneurysm of right femoral artery Assessment & Plan (11/12/2024 12:39 PM EDT): -s/p hematoma evaluation and repair of pseudoaneurysm on 11/02 -stable around 8.5 - follow Hgb with daily CBC Assessment & Plan (11/11/2024 10:32 AM EDT): -s/p hematoma evaluation and repair of pseudoaneurysm on 11/02 -stable - follow Hgb with daily CBC Assessment & Plan (11/10/2024 4:18 PM EDT): -s/p hematoma evaluation and repair of pseudoaneurysm on 11/02 -stable - follow Hgb with daily CBC Assessment & Plan (11/09/2024 1:43 PM EDT): -s/p hematoma evaluation and repair of pseudoaneurysm 11/02 -stable - follow Hgb 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 Pending CTA coronary artery Assessment & Plan (11/11/2024 10:32 AM EDT): - Cath on 11/01/2024: Coronary angiogram and [...] need to uptitrate verapamil if BP allows Assessment & Plan (11/10/2024 4:18 PM EDT): - Cath on 11/01/2024: Coronary angiogram and [...] need to uptitrate verapamil if BP allows Assessment & Plan (11/09/2024 1:43 PM EDT): - Cath on 11/01/2024: Coronary angiogram and [...] need to uptitrate verapamil if BP allows Hematoma 11/02/2024 Chest pain 10/30/2024 Assessment & Plan (11/12/2024 12:39 PM EDT): - Cath on 11/01/2024: Coronary angiogram and [...] BP allows 4. Pending CTA coronary artery Assessment & Plan (11/11/2024 10:32 AM EDT): - Cath on 11/01/2024: Coronary angiogram and [...] need to uptitrate verapamil if BP allows Assessment & Plan (11/10/2024 4:18 PM EDT): - Cath on 11/01/2024: Coronary angiogram and [...] need to uptitrate verapamil if BP allows Assessment & Plan (11/09/2024 1:43 PM EDT): - Cath on 11/01/2024: Coronary angiogram and [...] need to uptitrate verapamil if BP allows Assessment & Plan (10/30/2024 9:00 PM EDT): - Troponin 390 at outside hospital, repeat of 337 -Continue IV heparin infusion -N.p.o. midnight for possible intervention -EKG shows sinus rhythm with occasional PVCs and a prolonged QT -Optimize electrolytes -Cardiology consultation Type 2 diabetes mellitus wit hout complication, without long-term current use of insulin 10/30/2024 Assessment & Plan (11/12/2024 12:39 PM EDT): - ISS - Blood glucose is well controlled on 11/12 without significant use of insulin Assessment & Plan (11/11/2024 10:32 AM EDT): - ISS - Blood glucose is well controlled on 11/11 without significant use of insulin Assessment & Plan (11/10/2024 4:18 PM EDT): - ISS - Blood glucose is well controlled without significant use of insulin Assessment & Plan (11/09/2024 1:43 PM EDT): - ISS Assessment & Plan (11/02/2024 1:29 PM EDT): - Patient currently taking metformin at home -Continue ISS ACHS Assessment & Plan (11/01/2024 7:33 AM EDT): - Patient currently taking metformin at home -Continue ISS ACHS Assessment & Plan (10/31/2024 11:15 AM EDT): - Patient currently taking metformin at home -Continue ISS ACHS Assessment & Plan (10/30/2024 9:00 PM EDT): - Patient currently taking metformin at home, will begin ISS, ACHS Primary hypertension 10/30/2024 Other hyperlipidemia 10/30/2024 Asthma 10/30/2024 Assessment & Plan (11/02/2024 1:29 PM EDT): - Continue albuterol inhaler as needed Assessment & Plan (11/01/2024 7:33 AM EDT): - Continue albuterol inhaler as needed Assessment & Plan (10/31/2024 7:18 AM EDT): - Continue albuterol inhaler as needed Assessment & Plan (10/30/2024 9:00 PM EDT): - Continue albuterol inhaler as needed IBS (irritable bowel syndrome) 10/30/2024 Assessment & Plan (11/12/2024 12:39 PM EDT): - on prucalopride outpt Assessment & Plan (11/11/2024 10:32 AM EDT): - on prucalopride outpt Assessment & Plan (11/10/2024 4:18 PM EDT): - on prucalopride outpt Assessment & Plan (11/09/2024 1:43 PM EDT): - on prucalopride outpt Assessment & Plan (11/02/2024 1:29 PM EDT): - Stable Assessment & Plan (11/01/2024 7:33 AM EDT): - Stable Assessment & Plan (10/31/2024 11:15 AM EDT): - Stable Assessment & Plan (10/30/2024 9:00 PM EDT): - Stable, last BM yesterday Median arcuate ligament syndrome 10/30/2024 Assessment & Plan (11/12/2024 12:39 PM EDT): - currently on TPN and regular diet - consulted dietary for TPN. TPN has been started Assessment & Plan (11/11/2024 10:32 AM EDT): - currently on TPN and regular diet - consulted dietary for TPN. TPN has been started Assessment & Plan (11/10/2024 4:18 PM EDT): - currently on TPN and regular diet - consulted dietary for TPN Assessment & Plan (11/09/2024 1:43 PM EDT): - currently on TPN and regular diet - consulted dietary for TPN Assessment & Plan (11/02/2024 1:29 PM EDT): - S/p celiac plexus block and then MALS release Assessment & Plan (11/01/2024 7:33 AM EDT): - S/p celiac plexus block and then MALS release Assessment & Plan (10/31/2024 7:18 AM EDT): - S/p celiac plexus block and then MALS release Assessment & Plan (10/30/2024 9:00 PM EDT): - S/p celiac plexus block and then MALS release S/P laparoscopic sleeve gastrectomy 10/30/2024 Assessment & Plan (11/12/2024 12:39 PM EDT): - currently on TPN and regular diet - consulted dietary for TPN. TPN has been started Assessment & Plan (11/11/2024 10:32 AM EDT): - currently on TPN and regular diet - consulted dietary for TPN. TPN has been started Assessment & Plan (11/10/2024 4:18 PM EDT): - currently on TPN and regular diet - consulted dietary for TPN Assessment & Plan (11/09/2024 1:43 PM EDT): - currently on TPN and regular diet - consulted dietary for TPN Assessment & Plan (11/02/2024 1:29 PM EDT): - Stable Assessment & Plan (11/01/2024 7:33 AM EDT): - Stable Assessment & Plan (10/31/2024 7:18 AM EDT): - Stable Assessment & Plan (10/30/2024 9:00 PM EDT): - Stable Protein calorie malnutrition 10/30/2024 Assessment & Plan (11/02/2024 1:29 PM EDT): -Patient currently requiring TPN -Port to her right chest -Clinical dietitian consult Assessment & Plan (11/01/2024 7:33 AM EDT): -Patient currently requiring TPN -Port to her right chest -Clinical dietitian consult Assessment & Plan (10/31/2024 11:15 AM EDT): -Patient currently requiring TPN -Port to her right chest -Clinical dietitian consult Assessment & Plan (10/30/2024 9:00 PM EDT): - Patient currently requiring TPN -Port to her right chest -Clinical dietitian consult- Prolonged Q-T interval on ECG 10/30/2024 Assessment & Plan (11/02/2024 1:29 PM EDT): -QT mildly prolonged; read as 492 ms however calculation revealing 429 -Okay with reglan Assessment & Plan (11/01/2024 11:57 AM EDT): -QT mildly prolonged; read as 492 ms however calculation revealing 429 -Okay with reglan -Obtain repeat EKG today Assessment & Plan (10/31/2024 11:15 AM EDT): -QT mildly prolonged -Continue Tigan for now and avoid other QT prolonging agents Assessment & Plan (10/30/2024 9:00 PM EDT): - QT prolonged on EKG, will hold all QT prolonging agents -Recommend repeat EKG in a.m. 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 Assessment & Plan (11/01/2024 11:57 AM EDT): -Trop 390 at OSH, now downward trending -Continue heparin gtt -TTE showing mildly reduced EF 50-55% with WMA -Cardiology consulted; cardiac catheterization from radial approach yesterday showing mild LAD disease however due to radial artery spasms catheterization was incomplete - planning for repeat catheterization today from femoral access Assessment & Plan (10/31/2024 11:15 AM EDT): -Trop 390 at OSH, now downward trending -Continue heparin gtt -Cardiology consulted -Pending TTE, cath Spontaneous dissection of coronary artery 2024 Assessment & Plan (11/12/2024 12:39 PM EDT): - Cath on 11/01/2024: Coronary angiogram and [...] BP allows 4. Pending CTA coronary artery Assessment & Plan (11/11/2024 10:32 AM EDT): - Cath on 11/01/2024: Coronary angiogram and [...] need to uptitrate verapamil if BP allows Assessment & Plan (11/10/2024 4:18 PM EDT): - Cath on 11/01/2024: Coronary angiogram and [...] need to uptitrate verapamil if BP allows Assessment & Plan (11/09/2024 1:43 PM EDT): - Cath on 11/01/2024: Coronary angiogram and [...] need to uptitrate verapamil if BP allows Assessment & Plan (11/02/2024 1:29 PM EDT): -Trop 390 at OSH, now downward trending [...] pain today patient brought urgently back to [employer] Machine [employer] Sepsis due to Klebsiella 08/18/2024 Assessment & Plan (08/19/2024 1:03 PM EDT): - source is likely the cellulitis around the J-tube status post J-tube removal. - CT scan from [facility] showing no abscess. - Infectious disease recommendations appreciated, continue with ceftriaxone. - Repeat blood cultures on 08/16: NGTD - central line in place, does not look like infected, continue monitoring, central line care. Assessment & Plan (08/18/2024 12:20 PM EDT): - source is likely the cellulitis around the J-tube status post J-tube removal. - CT scan from [facility] showing no abscess. - Infectious disease recommendations appreciated, continue with ceftriaxone. - Repeat blood cultures on 08/16: NGTD - central line in place, does not look like infected, continue monitoring, central line care. Sepsis due to Enterococcus 08/18/2024 Assessment & Plan (08/19/2024 1:03 PM EDT): - source is likely the cellulitis around the J-tube status post J-tube removal. - CT scan from [facility] showing no abscess. - Infectious disease recommendations appreciated, continue with ceftriaxone. - Repeat blood cultures on 08/16: NGTD - central line in place, does not look like infected, continue monitoring, central line care. Assessment & Plan (08/18/2024 12:20 PM EDT): - source is likely the cellulitis around the J-tube status post J-tube removal. - CT scan from [facility] showing no abscess. - Infectious disease recommendations appreciated, continue with ceftriaxone. - Repeat blood cultures on 08/16: NGTD - central line in place, does not look like infected, continue monitoring, central line care. Gastroparesis 08/18/2024 Assessment & Plan (11/12/2024 12:39 PM EDT): - currently on TPN and regular diet - consulted dietary for TPN. TPN has been started Assessment & Plan (11/11/2024 10:32 AM EDT): - currently on TPN and regular diet - consulted dietary for TPN. TPN has been started Assessment & Plan (11/10/2024 4:18 PM EDT): - currently on TPN and regular diet - consulted dietary for TPN Assessment & Plan (11/09/2024 1:43 PM EDT): - currently on TPN and regular diet - consulted dietary for TPN Assessment & Plan (11/02/2024 1:29 PM EDT): - atient initially with a J-tube in place, however, the JG became infected and had to be taken out -Patient reports plan for reinsertion in the near future Assessment & Plan (11/01/2024 7:33 AM EDT): - atient initially with a J-tube in place, however, the JG became infected and had to be taken out -Patient reports plan for reinsertion in the near future Assessment & Plan (10/31/2024 11:15 AM EDT): - atient initially with a J-tube in place, however, the JG became infected and had to be taken out -Patient reports plan for reinsertion in the near future Assessment & Plan (10/30/2024 9:00 PM EDT): - Patient initially with a J-tube in place, however, the JG became infected and had to be taken out -Patient reports plan for reinsertion in the near future Assessment & Plan (08/19/2024 1:03 PM EDT): [...] Chronic pain syndrome 08/18/2024 Assessment & Plan (11/12/2024 12:39 PM EDT): -resumed her fentanyl patch. Changed norco to roxicodone - Changed morphine IV to dilaudid IV according to morphine equivalent Assessment & Plan (11/11/2024 10:32 AM EDT): -resumed her fentanyl patch. Changed norco to roxicodone - Changed morphine IV to dilaudid IV according to morphine equivalent Assessment & Plan (11/10/2024 4:18 PM EDT): -resumed her fentanyl patch. Changed norco to roxicodone Assessment & Plan (11/09/2024 1:43 PM EDT): -resumed her fentanyl patch and orco Assessment & Plan (08/19/2024 1:03 PM EDT): - continue with home meds including fentanyl patch and scheduled tramadol. Continue with as needed Pride. Assessment & Plan (08/18/2024 12:20 PM EDT): - continue with home meds including fentanyl patch and scheduled tramadol. Continue with as needed Pride. 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 Assessment & Plan (08/18/2024 12:20 PM EDT): - status postresection. History of adrenal insufficiency 08/18/2024 Assessment & Plan (11/12/2024 12:39 PM EDT): -stable - cont cortef Assessment & Plan (11/11/2024 10:32 AM EDT): -stable - cont cortef Assessment & Plan (11/10/2024 4:18 PM EDT): -stable - cont cortef Assessment & Plan (11/09/2024 1:43 PM EDT): -stable - cont cortef Assessment & Plan (08/19/2024 1:03 PM EDT): - continue with dexamethasone Assessment & Plan (08/18/2024 12:20 PM EDT): - continue with dexamethasone Acquired hypothyroidism 08/18/2024 Assessment & Plan (11/02/2024 1:29 PM EDT): - Continue levothyroxine Assessment & Plan (11/01/2024 7:33 AM EDT): - Continue levothyroxine Assessment & Plan (10/31/2024 7:18 AM EDT): - Continue levothyroxine Assessment & Plan (10/30/2024 9:00 PM EDT): - Continue levothyroxine Assessment & Plan (08/19/2024 1:03 PM EDT): - continue with levothyroxine. Assessment & Plan (08/18/2024 12:20 PM EDT): - continue with levothyroxine. Hypothyroidism 08/17/2024 Assessment & Plan (11/12/2024 12:39 PM EDT): -resume home meds Assessment & Plan (11/11/2024 10:32 AM EDT): -resume home meds Assessment & Plan (11/10/2024 4:18 PM EDT): -resume home meds Assessment & Plan (11/09/2024 1:43 PM EDT): -resume home meds Assessment & Plan (08/19/2024 1:03 PM EDT): [...] GERD (gastroesophageal reflux disease) Assessment & Plan (11/02/2024 1:29 PM EDT): -Continue PPI Assessment & Plan (11/01/2024 7:33 AM EDT): -Continue PPI Assessment & Plan (10/31/2024 7:18 AM EDT): -Continue PPI Assessment & Plan (10/30/2024 9:00 PM EDT): -Continue PPI Assessment & Plan (08/19/2024 1:03 PM EDT): -Pantoprazole 40 mg p.o. daily Assessment & Plan (08/18/2024 12:20 PM EDT): -Pantoprazole 40 mg p.o. daily Assessment & Plan (08/17/2024 1:27 AM EDT): -Pantoprazole 40 mg p.o. daily DVT prophylaxis is VTE protocols per [facility] GI prophy Protonix Monitor labs) Obtain [...] Consult infectious disease - Obtain 2D echocardiogram History of laparoscopic cholecystectomy 04/11/19 25 Chronic, continuous use of opioids 04/11/2024 History of small bowel obstruction 01/21/2024 Impaired intestinal absorption 11/03/2023 Heart failure 06/29/2023 Osteoarthritis 03/05/2023 Anxiety and depression 12/07/2022 Anemia 08/04/2022 Overview (11/09/2024): Takes Pro FE daily. Last Assessment & Plan: Assessment: iron infusions ~1 month ago History of Isabel-en-Y gastric bypass 06/24/2022 Bipolar disorder 06/21/2022 Iron deficiency anemia 11/01/2021 Panic disorder without agoraphobia 11/21/2019 Chronic fatigue syndrome 09/19/2018 Insomnia 09/15/2018 PCOS (polycystic ovarian syndrome) 10/02/2013 Overview (11/09/2024): Last Assessment & Plan: Assessment: monitored per PCP Current Treatment and Therapy Plans No current plan information found. Past Treatment and Therapy Plans No past plan information found. Lifetime Dose Tracking * Chemical Lifetime Dose Automatic Entry Manual Entr y Fluoro Time 1,946.2 minutes 0 minutes 1,946.2 allie stevan Air Kerma 1,280 mGy 0 mGy 1,280 mGy
--- OUTSIDE RECORDS SUMMARY | 2024-11-14 16:51 | XMS_ITS | Patient Health Record ---
Author Organization [facility] es Address [address] [place] [address] Care Team Providers Care It Teacher Name Role Phone Ashley Bryson Primary Care Provider Christina Dominguez Unavailable Unavailable Reason For Referral No Information Encounters Encounter Location Date Provider Diagnosis [address] [id number] 04/25/2024 Ashley Bryson Encounter for dental examination [...] tooth (ICD-10 - K03.81) Plan Of Treatment No Information Insurance Providers Payer Name Payer Address Payer Phone Subscriber Number Group Number Insured Name Patient Relationship to Insured Coverage Start Date Coverage End Date Dental [employer] DQ [address] [address] [place] [address] [id number] JUAN KONG Self - patient is the insured Dental W[employer] [facility] [employer] [address] [place] [address] [id number] JUAN KONG Self - patient is the insured 5
--- OUTSIDE RECORDS SUMMARY | 2024-11-14 16:51 | XMS_ITS | Clinical Summary ---
Author Organization [facility] Address [address] [place] [address] Care Team Providers Care Fruit Or Nut Farmworker Name Role Phone Anna Mendez JUTE BAG CLIPPER Unavailable Thomas Alas MD Primary Care Provider [phone] Allergies Active Allergy Reactions Criticality Noted Date [...] 06/09/19 23 Active Lancets (OneTouch Delica Plus [id number]) misc USE TO TEST BLOOD SUGAR TWICE [...] Hypertensive disorder 09/13/2017 39 weeks gestation of ([facility]) 2016 Polycystic ovaries 10/02/2013 [...] Health Maintenance Insurance [employer] Care Teams Fruit Or Nut Farmworker Relationship Specialty Start Date End Date Thomas Alas MD [address] [place] [address] PCP - General Family Medicine 12/14/23 Anna Mendez NP [address] [place] [address] Referring Physician Family Medicine 07/23/22
--- OUTSIDE RECORDS SUMMARY | 2024-11-14 16:51 | XMS_ITS | Clinical Summary ---
Author Organization [facility] Address [address] [place] [address] Care Team Providers Care Merchandising Specialist Name Role Phone Britt Alas MD Primary Care Provider [phone] Allergies Active Allergy Reactions Criticality Noted Date Comments Adhesive Rash Low 08/16/2024 Codeine Nausea And Vomiting Medium 08/16/2024 Nsaids (Non-Steroidal Anti-Inflammatory Drug) GI intolerance Medium 08/16/2024 Medications liothyronine (Cytomel) 5 mcg tablet Take 5 mcg by mouth in the morning. Active topiramate (Topamax) 100 mg tablet Take 100 mg by mouth two times daily. Active ALBUTEROL INHL Inhale 90 mcg every [...] 100 mg by mouth at bedtime. Active fentaNYL (Duragesic) 25 mcg/hr Place 1 patch on the skin every 3rd (third) day. Active hydrocortisone (Cortef) 10 mg tablet Take 10 mg by mouth in the morning. Active hydrOXYzine HCL (Atarax) 25 mg tablet Take 50 mg by mouth if needed at bedtime. Active metFORMIN, OSM, (Fortamet) 500 mg 24 hr tablet Take 500 mg by mouth with breakfast and with evening meal. Do not crush, chew, or split. Active sucralfate (Carafate) 1 gram tablet Take 1 g by mouth before breakfast, before lunch, before evening meal, and at bedtime. Active traMADol (Ultram) 50 mg tablet Take 50 mg by mouth every 6 (six) hours if needed. Active aspirin 81 mg chewable tabletIndicati ons:Spontaneou s dissection of coronary artery Chew 1 tablet (81 mg) with breakfast for 120 doses. 30 tablet 3 11/04/19 25 026 Active clopidogrel (Plavix) 75 mg tabletIndicati ons:Spontaneou s dissection of coronary artery Take 1 tablet (75 mg) by mouth in the morning for 120 doses. 30 tablet 3 11/04/19 25 026 Active metoclopramide (Reglan) 10 mg tabletIndicati ons:Gastropare sis Take 1 tablet (10 mg) by mouth if needed in the morning and at bedtime (nausea and vomiting). 60 tablet 11/03/19 25 025 Active metoprolol succinate XL (Toprol-XL) 25 mg 24 hr tabletIndicati ons:Hematoma Take 1 tablet (25 mg) by mouth in the morning for 92 doses. Do not crush or chew. Do not start before November 08, 2024. 30 tablet 3 11/09/19 25 025 Active verapamil (Calan) 40 mg tabletIndicati ons:Hematoma Take 1 tablet (40 mg) by mouth every 8 (eight) hours for 287 doses. 90 tablet 3 11/08/19 25 025 Active rosuvastatin (Crestor) 40 mg tabletIndicati ons:Hematoma Take 1 tablet (40 mg) by mouth at bedtime for 99 doses. 30 tablet 3 11/08/19 25 025 Active naloxone (Narcan) 0.4 mg/mL injectionIndic ations:Chronic narcotic use Infuse 1 mL (0.4 mg) into a venous catheter if needed for opioid reversal. 1 mL 11/14/19 25 Active ranolazine (Ranexa) 500 mg 12 hr tabletIndicati ons:Chest pain Take 1 tablet (500 mg) by mouth two times daily for 189 doses. Do not crush, chew, or split. 60 tablet 3 11/14/19 25 026 Active colchicine 0.6 mg tabletIndicati ons:Chest pain Take 0.5 tablets (0.3 mg) by mouth every other day. Do not start before November 14, 2024. 8 tablet 11/15/19 Active linaCLOtide (Linzess) 290 mcg capsule Take 290 mcg by mouth before breakfast. Do not crush or chew. Discontinued(St op Taking at Discharge) metoclopramide (Reglan) 10 mg tablet Take 10 mg by mouth if needed each day (nausea and vomiting). Discontinued dexAMETHasone (Decadron) 2 mg tablet Take 3 mg by mouth in the morning. Discontinued(St op Taking at Discharge) ergocalciferol (Vitamin D-2) 1.25 MG (94811 Units) capsule Take 50,000 Units by mouth 1 (one) time per week. Discontinued(St op Taking at Discharge) fentaNYL (Duragesic) 12 mcg/hr Place 1 patch on the skin every 3rd (third) day. Takes 12 mcg and 25 mcg together every 3 days Discontinued(St op Taking at Discharge) HYDROcodone-ac etaminophen (Creston) 5-325 mg tablet Take 2 tablets by mouth every 4 (four) hours if needed for moderate-sharon re pain (4-10 pain score). Discontinued(St op Taking at Discharge) prochlorperazi ne (Compazine) 10 mg tablet Take 10 mg by mouth every 6 (six) hours if needed for nausea or vomiting. Discontinued(St op Taking at Discharge) atorvastatin (Lipitor) 80 mg tabletIndicati ons:Spontaneou s dissection of coronary artery Take 1 tablet (80 mg) by mouth at bedtime for 120 doses. 30 tablet 3 11/03/19 25 025 Discontinued(St op Taking at Discharge) metoprolol succinate XL (Toprol-XL) 25 mg 24 hr tabletIndicati ons:Spontaneou s dissection of coronary artery Take 0.5 tablets (12.5 mg) by mouth in the morning for 120 doses. Do not crush or chew. 15 tablet 3 11/04/19 25 025 Discontinued(St op Taking at Discharge) colchicine 0.6 mg tabletIndicati ons:Chest pain Take 0.5 tablets (0.3 mg) by mouth every other day for 49 doses. 8 tablet 3 11/15/19 25 025 Discontinued Active Problems Problem Noted [...] pain today patient brought urgently back to Air Sealing Technician Assessment & Plan (11/01/2024 11:57 AM EDT): [...] medical therapy is recommended - cards consulted Valerian tomorrow to assess for ischemic evaluation Continue [...] pain today patient brought urgently back to Air Sealing Technician Sepsis due to Klebsiella 08/18/2024 Assessment & Plan (08/19/2024 1:03 PM EDT): - source is likely the cellulitis around the J-tube status post J-tube removal. - CT scan from [facility] showing no abscess. - Infectious disease recommendations appreciated, continue with ceftriaxone. - Repeat blood cultures on 08/16: NGTD - central line in place, does not look like infected, continue monitoring, central line care. Assessment & Plan (08/18/2024 12:20 PM EDT): - source is likely the cellulitis around the J-tube status post J-tube removal. - CT scan from [facility] showing no abscess. - Infectious disease recommendations appreciated, continue with ceftriaxone. - Repeat blood cultures on 08/16: NGTD - central line in place, does not look like infected, continue monitoring, central line care. Sepsis due to Enterococcus 08/18/2024 Assessment & Plan (08/19/2024 1:03 PM EDT): - source is likely the cellulitis around the J-tube status post J-tube removal. - CT scan from [facility] showing no abscess. - Infectious disease recommendations appreciated, continue with ceftriaxone. - Repeat blood cultures on 08/16: NGTD - central line in place, does not look like infected, continue monitoring, central line care. Assessment & Plan (08/18/2024 12:20 PM EDT): - source is likely the cellulitis around the J-tube status post J-tube removal. - CT scan from [facility] showing no abscess. - Infectious disease recommendations [...] and scheduled tramadol. Continue with as needed Creston. Assessment & Plan (08/18/2024 12:20 PM EDT): - continue with home meds including fentanyl patch and scheduled tramadol. Continue with as needed Creston. MALT (mucosa associated lymphoid tissue) 025 Assessment [...] daily DVT prophylaxis is VTE protocols per [facility] GI prophy Protonix Monitor labs) [...] 2D echocardiogram History of laparoscopic cholecystectomy 04/11/19 Chronic, continuous use of opioids 04/11/2024 History [...] Assessment & Plan: Assessment: monitored per PCP Encounters Date Type Department Care Team Description 11/09/2024 10:47 AM EDT - 11/13/2024 2:34 PM EDT Hospital Encounter [facility] [address] [place] [phone] Urbano Santos MD Chang, Kyu Chul, MD Schwarz, Stephanie, DO Chest pain (Primary Dx); Chronic narcotic use Discharge Disposition: Home-Health Care Sv (06) 11/09/2024 Travel 11/02/2024 8:45 PM EDT Anesthesia Event [facility] Main Operating Room [address] [place] [phone] David Reyes MD 11/02/2024 8:45 PM EDT - 11/02/2024 11:15 PM EDT Surgery [facility] Main Operating Room [address] [place] [phone] Jose Angel Fox MD EXPLORATION, HEMATOMA Right Groin 11/02/2024 5:41 PM EDT - 11/02/2024 6:41 PM EDT Surgery [facility] Heart and Vascular Center Vascular Lab [address] [place] [phone] Wali Collins MD Coronary angiography 11/01/2024 12:30 PM EDT - 11/01/2024 1:30 PM EDT Surgery [facility] Vascular Lab [address] [place] [address] Mitchell Agustin MD Coronary angiography 10/31/2024 1:30 PM EDT - 10/31/2024 2:30 PM EDT Surgery [facility] Vascular Lab [address] [facility] [place] [address] Tino Gilmore MD Coronary angiography 10/30/2024 6:28 PM EDT - 11/07/2024 5:10 PM EDT Hospital Encounter [facility] [place] [address] Sandeep Casey MD Spencer, Caleb T, MD Vicente, David, MD Mansur, Sarmed, MD Moukarbel, George, MD Hematoma (Primary Dx); Chest pain; NSTEMI (non-ST elevated myocardial infarction) ([facility]); Spontaneous dissection of coronary artery; Gastroparesis; Gastroesophageal reflux disease without esophagitis Discharge Disposition: Home-Health Care [facility] (06) 10/30/2024 Travel 08/20/2024 Orders Only [facility] Vascular and Endovascular Surgery [address] [place] [address] Mikayla Jennings PA-C Wound cellulitis (Primary Dx) 08/20/2024 Orders Only [facility] Vascular and Endovascular Surgery [address] [place] [address] Mikayla Jennings PA-C Wound cellulitis (Primary Dx) 08/16/2024 8:48 PM EDT - 08/20/2024 3:55 PM EDT Hospital Encounter [facility] 5ABCD Surgery Stepdown [address] [facility] [place] [address] Sandeep Casey MD Mansur, Sarmed, MD Okoro, Bonaventure, MD Bacteremia (Primary Dx) Discharge Disposition: Home or Self Care () 08/16/2024 Travel from Last 3 Months Family History Medical History Relation Name Comments No Known Problems Father No Known Problems Mother Relation Name Status Comments Father Mother Social History Tobacco Use Types Packs/Day Years Used Date Smoking Tobacco: Never Smokeless Tobacco: Never Tobacco Cessation:Counseling Given: Not Answered Alcohol Use Standard Drinks/Week Comments Not Currently 0 (1 standard drink = 0.6 oz pur e alcohol) [facility] Utilities Answer Date Recorded In the past 12 months has th e [employer], gas, oil, or water [employer] threatened to shut off services in your [...] [facility] were you homeless or living in a residential (including now)? No 11/09/2024 Hunger Vital Sign [...] Mass Index 29.91 11/09/2024 11:00 AM EDT Plan of Treatment Upcoming Encounters Date Type Department Care Team (Late st Contact Info) Description 11/20/2024 2:30 PM EDT Follow-Up [facility] Vascular and Endovascular Surgery [address] [place] [address] Delphine Du NP [address] [facility] [address] [place], [place] [id number] 11/28/2024 11:00 AM EDT Follow-Up [facility] [address] [place] [address] Wali Collins MD [address] [place] [address] 12/04/2024 10:00 AM EDT Office Visit [facility] [place] [address] [place] [address] Katie Altamirano MD [address] [facility] [place] [address] Health Maintenance Due Date Last Done Comments Diabetes: Retinopathy Screening 1999 Depression Screening 2001 Varicella Vaccines (1 of 2 - 13+ 2-dose series) 2002 Diabetes: Urine Protein Screening 2008 Hepatitis B Vaccines (1 of 3 [...] 2024 3, 11/16/2021, 01/01/2021, Additional history exists Diabetes: Hemoglobin A1C 01/30/2025 10/31/2024 Adult Tetanus 09/21/2026 09/21/2016 HIB Vaccines Aged [...] I Pending Discharge 11/13/2024 7:03 AM EDT BASIC METABOLIC PANEL Pending Discharge 11/13/2024 7:03 AM EDT CBC Pending Discharge 11/13/2024 7:03 AM EDT POCT [...] I Pending Discharge 11/12/2024 6:30 AM EDT BASIC METABOLIC PANEL Pending Discharge 11/12/2024 6:30 AM EDT CBC Pending Discharge 11/12/2024 6:30 AM EDT POCT [...] RATE Add-On 11/11/2024 6: 39 AM EDT BASIC METABOLIC PANEL Pending Discharge 11/11/2024 6:39 AM EDT CBC Pending Discharge 11/11/2024 6:39 AM EDT POCT [...] UNSOLICITED RESULTS Routine 11/09/2024 4:12 PM EDT CBC WITH AUTO DIFFERENTIAL Routine 11/09/2024 2:09 PM EDT MAGNESIUM Routine 11/09/2024 2:09 PM EDT CBC AND DIFFERENTIAL Routine 11/09/2024 2:09 PM EDT BASIC METABOLIC PANEL Routine 11/09/2024 2:09 PM EDT HIGH SENSITIVITY TROPONIN I Routine 11/09/2024 2:09 PM EDT ECG 12-LEAD Routine 11/09/2024 12:39 PM EDT POCT GLUCOSE METER UNSOLICITED RESULTS Routine 11/07/2024 4:00 PM EDT POCT GLUCOSE METER UNSOLICITED RESULTS Routine 11/07/2024 11:55 AM EDT ECG 12-LEAD Routine 11/07/2024 11:48 AM EDT POCT GLUCOSE METER UNSOLICITED RESULTS Routine 11/07/2024 7:43 AM EDT CBC STAT 11/07/2024 6:27 AM EDT HIGH SENSITIVITY TROPONIN I STAT Add-on 11/07/2024 4:50 AM EDT CALCIUM, IONIZED Routine 11/07/2024 4:50 AM EDT PHOSPHORUS Routine 11/07/2024 4:50 AM EDT MAGNESIUM Routine 11/07/2024 4:50 AM EDT BASIC METABOLIC [...] ECG 12-LEAD STAT 11/04/2024 1:59 PM EDT HEMOGLOBIN AND HEMATOCRIT, BLOOD Pending Discharge 11/04/2024 1:38 PM EDT BASIC METABOLIC PANEL STAT 11/04/2024 1:38 PM EDT HIGH SENSITIVITY TROPONIN I STAT 11/04/2024 1:38 PM EDT POCT GLUCOSE METER UNSOLICITED RESULTS Routine 11/04/2024 1:06 PM EDT CTA ABDOMEN PELVIS W IV CONTRAST Routine 11/04/2024 12:48 PM EDT POCT GLUCOSE METER UNSOLICITED RESULTS Routine 11/04/2024 9:20 AM EDT POCT GLUCOSE METER UNSOLICITED RESULTS Routine 11/04/2024 5:10 AM EDT CBC Pending Discharge 11/04/2024 5:05 AM EDT CALCIUM, IONIZED Pending Discharge 11/04/2024 5:05 AM EDT PHOSPHORUS Pending Discharge 11/04/2024 5:05 AM EDT MAGNESIUM Pending Discharge 11/04/2024 5:05 AM EDT BASIC [...] CBC Pending Discharge 11/03/2024 4:46 AM EDT CALCIUM, IONIZED Pending Discharge 11/03/2024 4:46 AM EDT PHOSPHORUS Pending Discharge 11/03/2024 4:46 AM EDT MAGNESIUM Pending Discharge 11/03/2024 4:46 AM EDT BASIC METABOLIC PANEL Pending Discharge 11/03/2024 4:46 AM EDT INTEM C Routine 11/03/2024 1:58 AM EDT HEPTEM C Routine 11/03/2024 1:58 AM EDT EXTEM C Routine 11/03/2024 1:58 AM EDT FIBTEM C Routine 11/03/2024 1:58 AM EDT CBC STAT 11/03/2024 12:07 AM EDT PHOSPHORUS STAT 11/03/2024 12:07 AM EDT MAGNESIUM STAT 11/03/2024 12:07 AM EDT BASIC METABOLIC PANEL STAT 11/03/2024 12:07 AM EDT FIBRINOGEN STAT 11/03/2024 12:07 AM EDT PROTIME-INR STAT 11/03/2024 12:07 AM EDT POCT GLUCOSE METER UNSOLICITED RESULTS Routine 11/02/2024 10:48 PM EDT TRANSFUSE RED BLOOD CELLS Routine 11/02/2024 9:30 PM EDT TRANSFUSE RED BLOOD CELLS Routine 11/02/2024 9:10 PM EDT WI AN ELECTIVE ENDOTRACHEAL AIRWAY Routine 11/02/2024 8:56 PM EDT REPAIR, PSEUDOANEURYSM 11/02/2024 8:44 PM EDT Hematoma Right Groin EXPLORATION, HEMATOMA 11/02/2024 8:44 PM EDT Hematoma Right Groin POCT GLUCOSE METER UNSOLICITED RESULTS Routine 11/02/2024 8:30 PM EDT PREPARE RBC Routine 11/02/2024 8:05 PM EDT PREPARE RBC Routine 11/02/2024 8:05 PM EDT TYPE AND SCREEN Pending Discharge 11/02/2024 8:02 PM EDT CBC Pending Discharge 11/02/2024 8:02 PM EDT RED TOP Routine 11/02/2024 8:00 PM EDT EXTRA TUBES Routine 11/02/2024 8:00 PM EDT ACTIVATED CLOTTING [...] UNSOLICITED RESULTS Routine 11/02/2024 7:31 AM EDT LIGHT GREEN TOP Routine 11/02/2024 6:15 AM EDT EXTRA TUBES Routine 11/02/2024 6:15 AM EDT CBC Pending [...] UNSOLICITED RESULTS Routine 11/01/2024 11:30 AM EDT BASIC METABOLIC PANEL Pending Discharge 11/01/2024 10:10 AM EDT CBC STAT 11/01/2024 10:10 AM EDT POCT GLUCOSE METER [...] UNSOLICITED RESULTS Routine 10/31/2024 7:22 AM EDT HEMOGLOBIN A1C Add-On 10/31/2024 6:27 AM EDT LIPID PANEL Add-On 10/31/2024 6:27 AM EDT MAGNESIUM Add-On 10/31/2024 6:27 AM EDT ANTI-FACTOR XA Routine 10/31/2024 6:27 AM EDT CBC Routine 10/31/2024 6:27 AM EDT BASIC METABOLIC PANEL Routine 10/31/2024 6:27 AM EDT HIGH SENSITIVITY TROPONIN I Timed 10/31/2024 6:27 AM EDT ANTI-FACTOR XA Routine 10/31/2024 1:38 AM EDT HIGH SENSITIVITY TROPONIN I Timed 10/31/2024 1:38 AM EDT POCT GLUCOSE METER UNSOLICITED RESULTS Routine 10/30/2024 9:12 PM EDT ECG 12-LEAD STAT 10/30/2024 8:00 PM EDT ANTI-FACTOR XA STAT Add-on 10/30/2024 7:11 PM EDT APTT STAT 10/30/2024 7:11 PM EDT TSH3 REFLEX TO FT4 STAT 10/30/2024 7: 11 PM EDT CBC WITH AUTO DIFFERENTIAL STAT 10/30/2024 7:11 PM EDT B-TYPE NATRIURETIC PEPTIDE STAT 10/30/2024 7:11 PM EDT CBC AND DIFFERENTIAL STAT 10/30/2024 7:11 PM EDT PROTIME-INR STAT 10/30/2024 7:11 PM EDT PHOSPHORUS STAT 10/30/2024 7:11 PM EDT HIGH SENSITIVITY TROPONIN I STAT 10/30/2024 7:11 PM EDT MAGNESIUM STAT 10/30/2024 7:11 PM EDT COMPREHENSIVE METABOLIC PANEL STAT 10/30/2024 7:11 PM EDT POCT GLUCOSE METER UNSOLICITED RESULTS [...] EDT from Last 3 Months Results * XR chest 1 view (11/13/2024 12:51 PM EDT) Only the most recent of3 resultswithin the time period is included. Anatomical Region Laterality Modality Chest Computed Radiogr [...] POCT glucose meter (11/13/2024 11:08 AM EDT) Only the most recent of65 resultswithin the time period is included. [facility] Glucose POC 97 70 - 105 mg/dL 11/13/2024 11:26 AM EDT [facility] ([facility]) Comment:[email or web address] Blood Capillary blood specimen / Unknown 11/13/2024 11:08 AM EDT 11/13/2024 11:26 AM EDT Narrative [facility] ([facility]) - 11/13/2024 11:26 AM EDT Waived Testing in the ED is performed under the ED CLIA certificate #[id number]. us Marky Tavares MD LAB BLOOD ORDERABLES Final Res ult [facility] ([facility]) [address] [place] [address] * High Sensitivity Troponin I (11/13/2024 7:03 AM EDT) Only the most recent of19 resultswithin the time period is included. [facility] High Sensitivity Troponin I <2 <15 ng/L 11/13/2024 7:58 AM EDT [facility] ([facility]) Blood Venous blood specimen / Unknown Existing Catheter / Unknown 11/13/2024 7:03 AM EDT 11/13/2024 7:21 AM EDT us Marky Tavares MD LAB BLOOD ORDERABLES Final Res ult [facility] ([facility]) [address] [place] [address] * (ABNORMAL) CBC (11/13/2024 7:03 AM EDT) Only the most recent of17 resultswithin the time period is included. [facility] Auto WBC 3.34(L) 4.00 - 10.60 10*3/uL 11/13/2024 7:35 AM EDT [facility] ([facility]) RBC 2.88(L) 3.80 - 5.00 10*6/uL 11/13/2024 7:35 AM EDT [facility] ([facility]) Hemoglobin 8.6(L) 12.0 - 15.0 g/dL 11/13/2024 7:35 AM EDT [facility] ([facility]) Hematocrit 26.2(L) 36.0 - 45.0 % 11/13/2024 7:35 AM EDT [facility] ([facility]) MCV 91.0 82.0 - 98.0 fL 11/13/2024 7:35 AM EDT [facility] ([facility]) MCH 29.9 27.0 - 33.0 pg 11/13/2024 7:35 AM EDT [facility] ([facility]) MCHC 32.8 32.0 - 35.0 g/dL 11/13/2024 7:35 AM EDT [facility] ([facility]) RDW 14.6 11.5 - 15.0 % 11/13/2024 7:35 AM EDT [facility] ([facility]) Platelets 257 150 - 400 10*3/uL 11/13/2024 7:35 AM EDT [facility] ([facility]) Blood Venous blood specimen / Unknown Existing Catheter / Unknown 11/13/2024 7:03 AM EDT 11/13/2024 7:22 AM EDT us Marky Tavares MD LAB BLOOD ORDERABLES Final Res ult [facility] ([facility]) [address] [place] [address] * (ABNORMAL) Basic metabolic panel (11/13/2024 7:03 AM EDT) Only the most recent of19 resultswithin the time period is included. Sodium 140 136 - 145 mmol/L 11/13/2024 7:58 AM EDT [facility] ([facility]) Potassium 3.8 3.5 - 5.1 mmol/L 11/13/2024 7:58 AM EDT [facility] ([facility]) Chloride 108(H) 98 - 107 mmol/L 11/13/2024 7:58 AM EDT [facility] ([facility]) CO2 25 21 - 31 mmol/L 11/13/2024 7:58 AM EDT [facility] ([facility]) BUN 9 7 - 25 mg/dL 11/13/2024 7:58 AM EDT [facility] ([facility]) Creatinine 0.72 0.60 - 1.20 mg/dL 11/13/2024 7:58 AM EDT [facility] ([facility]) Glucose 81 70 - 100 mg/dL 11/13/2024 7:58 AM EDT [facility] ([facility]) Calcium 8.4(L) 8.6 - 10.3 mg/dL 11/13/2024 7:58 AM EDT [facility] ([facility]) Anion Gap 11 7 - 20 mmol/L 11/13/2024 7:58 AM EDT [facility] ([facility]) eGFR 111.8 >60.0 mL/min/1. 73m*2 11/13/2024 7:58 AM EDT [facility] ([facility]) Comment:[facility] s estimated glomerular filtration rate (eGFR) [...] BUN/Creatinine Ratio 12.5 10/17 7:58 AM EDT [facility] Blood Venous blood specimen / Unknown Existing Catheter / Unknown 11/13/2024 7:03 AM EDT 11/13/2024 7:21 AM EDT us Marky Tavares MD LAB BLOOD ORDERABLES Final Res ult [facility] [address] [place] [address] * ECG 12 lead (11/12/2024 1:41 PM EDT) Only the most recent of12 resultswithin the time period is included. Ventricular Rate 73 BPM GE MUSE Atrial Rate 73 BPM GE MUSE WI Interval 156 ms GE MUSE QRS DURATION 88 ms GE MUSE QT Interval 414 ms GE MUSE QTC CALCULATION(BAZE TT) 456 ms GE MUSE P [place] 65 degrees GE MUSE R-[place] 46 degrees GE MUSE T Wave [place] 61 degrees GE MUSE 11/12/2024 1:35 PM EDT 11/12/2024 7:44 PM EDT Impressions GE MUSE - 11/12/2024 7:44 PM EDT Normal sinus rhythm Normal ECG When compared with ECG of 11-NOV-2024 18:10, no significant change was noted Confirmed by Griffin Diaz ([id number]) on 11/12/2024 7:44:39 PM Narrative Procedure Note Jonelle Harrison MD - 11/12/2024 IMPRESSION: Normal sinus rhythm Normal ECG When compared with ECG of 11-NOV-2024 18:10, no significant change was noted Confirmed by Griffin Diaz ([id number]) on 11/12/2024 7:44:39 PM us Marky Tavares MD ECG ORDERABLES Final Result GE MUSE * CTA Chest W IV Contrast (11/11/2024 [...] signed: Rebecca Solano. us Marky Tavares MD IM CT PROCEDURES Final Result * (ABNORMAL) C-reactive protein (11/11/2024 3:29 PM EDT) CRP 13.4(H) <=5.0 mg/L 11/13/2024 10:24 AM EDT [facility] Comment:Testing performed us ing a new methodology, turbidimetry. Normal ranges have been updated. Old normal range was <8 mg/L. Blood Venous blood specimen / Unknown Existing Catheter / Unknown 11/11/2024 3:29 PM EDT 11/11/2024 3:42 PM EDT us Jonelle Harrison MD LAB BLOOD ORDERABLES Final Res ult [facility] ([facility]) [address] [place] [address] * (ABNORMAL) Sedimentation rate (11/11/2024 6:39 AM EDT) Sed Rate 20(H) <20 mm/hr 11/11/2024 12:20 PM EDT [facility] Blood Venous blood specimen / Unknown Existing Catheter / Unknown 11/11/2024 6:39 AM EDT 11/11/2024 6:43 AM EDT us Jonelle Harrison MD LAB BLOOD ORDERABLES Final Res ult Performing Organization Address City/[facility] Co de Phone Number [facility] [address] [place] [address] * LEXISCAN STRESS MYOCARDIAL PERFUSION IMAGING (11/10/2024 11:23 AM EDT) Anatomical Region Laterality Modality Other 11/10/2024 11:1 4 AM EDT Addenda Addendum by Mitul Moya MD on 11/10/2024 4:35 PM EDT 1 [facility] Heart Station [address] [place] [address] [phone] (fax) Lexiscan Stress Myocardial Perfusion Imaging- [facility] Name: JUAN GARCIA Study Date: 11/10/2024 11:14 AM B/P: / HR: Date of : 1990 Location: [facility] Height: 65 in. Age: 34 year(s) Patient [...] Lexiscan Exercise Time: 03:02 Device: Treadmill HR Blanchard Used: 21.00 % HR Recovery: 2 bpm Frequent VE: 1 VE/min Resolution: Persisted Max HR: 98 bpm Target HR: 157 bpm Achieved: No Resting HR: 68 bpm Max Predicted HR: 185 bpm Achv. of Max Predicted: 52 % BP Max: 105/71 BP at Rest: 105/71 Max RPP: 88780 mmHg*bpm Max ST Lead: III Max ST Phase: Infusion Stage No. in Phase: [address] Stage: INFUS2:[address] Amplitude: -0.[address] [place]: -0.670 mV/s Max ST Time in Phase: [...] 1.00 mets 67 bpm 105/71 0.250 mm [id number] 00:30 1.00 mets 90 bpm 102/70 0.400 [...] 4 - Aneurysmal Procedure Staff Reading Group: [facility] Referring Physician: BRITT ALAS Stress Script Writer: [place]son [place] Lime Mixer: Lauren Sanchez Ordering Physician: SEBASTIAN PEÑA Advanced Practitioner: CRISTINA Gibson Nurse: Evelyne Abrams Narrative 11/10/2024 4:35 PM EDT 1 1 [facility] Heart Station [address] [place] [address] [phone] (fax) Lexiscan Stress Myocardial Perfusion Imaging- [facility] Name: JUAN GARCIA Study Date: 11/10/2024 11:14 AM B/P: / HR: Date of : 1990 Location: [facility] Height: 65 in. Age: 34 year(s) Patient [...] Lexiscan Exercise Time: 03:02 Device: Treadmill HR Blanchard Used: 21.00 % HR Recovery: 2 bpm Frequent VE: 1 VE/min Resolution: Persisted Max HR: 98 bpm Target HR: 157 bpm Achieved: No Resting HR: 68 bpm Max Predicted HR: 185 bpm Achv. of Max Predicted: 52 % BP Max: 105/71 BP at Rest: 105/71 Max RPP: 78230 mmHg*bpm Max ST Lead: III Max ST Phase: Infusion Stage No. in Phase: [address] Stage: INFUS2:[address] Amplitude: -0.[address] [place]: -0.670 mV/s Max ST Time in Phase: [...] 1.00 mets 67 bpm 105/71 0.250 mm [id number] 00:30 1.00 mets 90 bpm 102/70 0.400 [...] 4 - Aneurysmal Procedure Staff Reading Group: [facility] Referring Physician: BRITT ALAS Stress Script Writer: [place] Lime Mixer: Lauren Sanchez Ordering Physician: SEBASTIAN PEÑA Advanced Practitioner: CRISTINA Gibson Nurse: Evelyne Abrams Resting Perfusion Procedure Note Mitul Moya MD - 11/10/2024 1 1 [facility] Heart Station [address] [place] [address] [phone] (fax) Lexiscan Stress Myocardial Perfusion Imaging- [facility] Name: JUAN GARCIA Study Date: 11/10/2024 11:14 AM B/P: / HR: Date of : 1990 Location: [facility] Height: 65 in. Age: 34 year(s) Patient [...] Lexiscan Exercise Time: 03:02 Device: Treadmill HR Blanchard Used: 21.00 % HR Recovery: 2 bpm Frequent VE: 1 VE/min Resolution: Persisted Max HR: 98 bpm Target HR: 157 bpm Achieved: No Resting HR: 68 bpm Max Predicted HR: 185 bpm Achv. of Max Predicted: 52 % BP Max: 105/71 BP at Rest: 105/71 Max RPP: 87639 mmHg*bpm Max ST Lead: III Max ST Phase: Infusion Stage No. in Phase: [address] Stage: INFUS2:[address] Amplitude: -0.[address] [place]: -0.670 mV/s Max ST Time in Phase: [...] 1.00 mets 67 bpm 105/71 0.250 mm [id number] 00:30 1.00 mets 90 bpm 102/70 0.400 [...] 4 - Aneurysmal Procedure Staff Reading Group: [facility] Referring Physician: BRITT ALAS Stress Script Writer: [place] Lime Mixer: Lauren Sanchez Ordering Physician: SEBASTIAN PEÑA Advanced Practitioner: CRISTINA Gibson Nurse: Evelyne Abrams Resting Perfusion us Sebastian Peña MD CV STRESS PROCEDURES Edited Res ult - Final * (ABNORMAL) CBC auto differential (11/09/2024 2:09 PM EDT) Only the most recent of4 resultswithin the time period is included. Auto WBC 5.31 4.00 - 10.60 10*3/uL 11/09/2024 2:40 PM EDT [facility] ([facility]) RBC 3.22(L) 3.80 - 5.00 10*6/uL 11/09/2024 2:40 PM EDT [facility] ([facility]) Hemoglobin 9.6(L) 12.0 - 15.0 g/dL 11/09/2024 2:40 PM EDT [facility] ([facility]) Hematocrit 28.6(L) 36.0 - 45.0 % 11/09/2024 2:40 PM EDT [facility] ([facility]) MCV 88.8 82.0 - 98.0 fL 11/09/2024 2:40 PM EDT [facility] ([facility]) MCH 29.8 27.0 - 33.0 pg 11/09/2024 2:40 PM EDT [facility] ([facility]) MCHC 33.6 32.0 - 35.0 g/dL 11/09/2024 2:40 PM EDT [facility] ([facility]) RDW 14.5 11.5 - 15.0 % 11/09/2024 2:40 PM EDT [facility] ([facility]) Neutrophils % 68.7 40.0 - 72.0 % 11/09/2024 2:40 PM EDT [facility] ([facility]) Lymphocytes % 20.0 20.0 - 45.0 % 11/09/2024 2:40 PM EDT [facility] ([facility]) Monocytes % 7.9 5.0 - 12.0 % 11/09/2024 2:40 PM EDT [facility] ([facility]) Eosinophils % 2.6 0.0 - 6.0 % 11/09/2024 2:40 PM EDT [facility] ([facility]) Basophils % 0.6 0.0 - 1.0 % 11/09/2024 2:40 PM EDT [facility] ([facility]) Neutrophils Absolute 3.65 1.60 - 7.60 10*3/uL 11/09/2024 2:40 PM EDT [facility] ([facility]) Lymphocytes Absolute 1.06(L) 1.20 - 4.00 10*3/uL 11/09/2024 2:40 PM EDT [facility] ([facility]) Monocytes Absolute 0.42 0.10 - 1.00 10*3/uL 11/09/2024 2:40 PM EDT [facility] ([facility]) Eosinophils Absolute 0.14 0.00 - 0.50 10*3/uL 11/09/2024 2:40 PM EDT [facility] ([facility]) Basophils Absolute 0.03 0.00 - 0.20 10*3/uL 11/09/2024 2:40 PM EDT [facility] ([facility]) Platelets 262 150 - 400 10*3/uL 11/09/2024 2:40 PM EDT [facility] ([facility]) nRBC % 0.0 0 % 11/09/2024 2:40 PM EDT [facility] ([facility]) Immature Granulocytes % 0.2 0.0 - 1.0 % 11/09/2024 2:40 PM EDT [facility] ([facility]) Immature Granulocytes Absolute 0.01 0.00 - 0.20 10*3/uL 11/09/2024 2:40 PM EDT [facility] ([facility]) Blood Venous blood specimen / Unknown Existing Catheter / Unknown 11/09/2024 2:09 PM EDT 11/09/2024 2:15 PM ED[facility] BLO[facility] ORDERABLES Final Result [facility]) [address], [place] [id number] * Magnesium (11/09/2024 2:09 PM EDT) Only the most recent of10 resultswithin the time period is included. Magnesium 2.0 1.9 - 2.7 mg/dL 11/09/2024 2:46 PM EDT [facility] ([facility]) Blood Venous blood specimen / Unknown Existing Catheter / Unknown 11/09/2024 2:09 PM EDT 11/09/2024 2:15 PM EDT [facility] B[facility] Final Result [facility]) [address], [place] [id number] * Phosphorus (11/07/2024 4:50 AM EDT) Only the most recent of7 resultswithin the time period is included. Phosphorus 4.7 2.5 - 5.0 mg/dL 11/07/2024 5:52 AM EDT [facility] ([facility]) Blood Venous blood specimen / Unknown Existing Catheter / Unknown 11/07/2024 4:50 AM EDT 11/07/2024 5:24 AM EDT us Rosa Willoughby PA-C LAB BLOOD ORDERABLES Final R esult [facility] ([facility]) [address], [place] [id number] * Calcium, ionized (11/07/2024 4:50 AM EDT) Only the most recent of5 resultswithin the time period is included. Calcium, Ion 1.16 1.15 - 1.33 mmol/L 11/07/2024 5:43 AM EDT [facility] RESPIRATORY THERAPY Blood Venous blood specimen / Unknown Existing Catheter / Unknown 11/07/2024 4:50 AM EDT 11/07/2024 5:38 AM EDT Eduarda Bravo PA-C LAB BLOOD ORDERABLES Final Resu lt Performing Organization Address City/[facility]/ZIP Co de Phone Number [facility] RESPIRATORY THERAPY [address] [place] [address], [place] * Vasc Us Lower Extremity Pseudoaneurysm Duplex [...] CV VASCULAR PROCEDURES Fi nal Result * (ABNORMAL) Hemoglobin and hematocrit, blood (11/05/2024 9:01 AM EDT) Only the most recent of6 resultswithin the time period is included. Hemoglobin 9.4(L) 12.0 - 15.0 g/dL 11/05/2024 9:24 AM EDT [facility] ([facility]) Hematocrit 27.5(L) 36.0 - 45.0 % 11/05/2024 9:24 AM EDT [facility] ([facility]) Blood Venous blood specimen / Unknown Existing Catheter / Unknown 11/05/2024 9:01 AM EDT 11/05/2024 9:09 AM EDT Tomasa Disla MD LAB BLOOD ORDERABLES Fin al Result [facility] ([facility]) [address] [place] [address] * Transfuse RBC (11/04/2024 4:57 PM EDT) Only the most recent of3 resultswithin the time period is included. Tomasa Disla MD BLOOD TRANSFUSION ORDERA BLES Final Result * CTA Abdomen Pelvis W IV Contrast [...] IMG CT PROCEDURES Final Resul t * HEPTEM C (11/03/2024 1:58 AM EDT) [...] EDT 11/03/2024 1:58 AM EDT us Ky Barbour MD LAB BLOOD ORDERABLES Final Re sult Performing Organization Address [facility] de Phone Number [facility] RESPIRATORY THERAPY [address] [place] [address], [place] * FIBTEM C (11/03/2024 1:58 AM [...] EDT 11/03/2024 1:58 AM EDT us Ky Barbour MD LAB BLOOD ORDERABLES Final Re sult Performing Organization Address [facility] de Phone Number [facility] RESPIRATORY THERAPY [address] [place] [address], [place] * (ABNORMAL) EXTEM C (11/03/2024 1:58 [...] EDT [facility] RESPIRATORY THERAPY Comment:WI^Preliminary Resul t Blood 11/03/2024 1:58 AM EDT 11/03/2024 1:58 AM EDT Ky Barbour MD LAB BLOOD ORDERABLES Final Re sult Performing Organization Address [facility] Co de Phone Number [facility] RESPIRATORY THERAPY [address] [place] [address], [place] * (ABNORMAL) INTEM C (11/03/2024 1:58 [...] EDT [facility] RESPIRATORY THERAPY Comment:WI^Preliminary Resul t Blood 11/03/2024 1:58 AM EDT 11/03/2024 1:58 AM EDT Ky Barbour MD LAB BLOOD ORDERABLES Final Re sult Performing Organization Address City/[facility]/ZIP Co de Phone Number [facility] RESPIRATORY THERAPY [address] [place] [address], [place] * (ABNORMAL) Protime-INR (11/03/2024 12:07 AM EDT) Only the most recent of2 resultswithin the time period is included. Protime 14.9(H) 12.3 - 14.8 Seconds 11/03/2024 12:53 AM EDT [facility] ([facility]) INR 1.17(H) 0.90 - 1.10 11/03/2024 12:53 AM EDT [facility] ([facility]) Comment: ACCCP RECOMMENDED INR [...] MD LAB BLOOD ORDERABLES Final Resu lt [facility] ([facility]) [address], [place] [id number] * Fibrinogen (11/03/2024 12:07 AM EDT) Fibrinogen 328 150 - 425 mg/dL 11/03/2024 12:53 AM EDT [facility] ([facility]) Blood Venous blood specimen / Unknown Existing Catheter / Unknown 11/03/2024 12:07 AM EDT 11/03/2024 12:27 AM EDT us Jose Angel Fox MD LAB BLOOD ORDERABLES Final Resu lt [facility] ([facility]) [address] [place] [address] * WI AN ELECTIVE ENDOTRACHEAL AIRWAY (11/02/2024 8:56 PM EDT) Tarik Dave CAA - 11/02/2024 8:56 PM EDT [place] Nair 11/02/2024 9:06 PM Airway Date/Time: 11/02/2024 8:56 PM Reason: elective Airway not difficult General Information and Staff Patient location during procedure: [place] Anesthesiologist: David Reyes MD Resident/MIGRATORY WORKER/CAA: [place] Nair Performed: resident/MIGRATORY WORKER/[place] Patient Condition Indications for airway management: anesthesia [...] Reyes MD ANESTHESIA ORDERABLES Final Res ult * Prepare RBC: 1 Units (11/02/2024 8:05 PM EDT) Only the most recent of2 resultswithin the time period is included. PRODUCT CODE [id number] [facility] OOD B[facility] Unit Number [id number] [facility] Unit ABO O [place] [...] [facility] B[facility] * Red Top (11/02/2024 8:00 PM EDT) Extra Tube Hold for add-ons. 11/02/2024 10:02 PM EDT [facility] Comment:Auto resulted. Blood Venous blood specimen / Unknown 11/02/2024 8:00 PM EDT 11/02/2024 8:19 PM EDT us Ky Barbour MD LAB BLOOD ORDERABLES Final Re sult [facility] ([facility]) [address] [place] [address] * (ABNORMAL) Activated clotting time (11/02/2024 4:43 PM EDT) Only the most recent of7 resultswithin the time period is included. Activated Clotting Time 176(H) 82 - 152 s 11/02/2024 5:54 PM EDT [facility] ([facility]) Blood Venous blood specimen / Unknown 11/02/2024 4:43 PM EDT 11/02/2024 5:54 PM EDT us Ky Barbour MD LAB POINT OF CARE TE ST DOCKED DEVICE UNSOLICITED RESULTS Final Result [facility] ([facility]) [address] [place] [address] * (ABNORMAL) POCT activated clotting time manually resulted (11/02/2024 4:40 PM EDT) Only the most recent of2 resultswithin the time period is included. Activated Clotting Time POC 176(A) 82 - 152 sec Blood Venous blood specimen / Unknown 11/02/2024 4:40 PM EDT us Ky Barbour MD POINT OF CARE TEST ENTER/EDIT ORDERABLES Final Result * CORONARY ANGIOGRAPHY, ULTRASOUND - CORONARY, INSTANT [...] infiltrated over the right femoral artery. A 6-Solomon Islander sheath was placed in right femoral artery. Coronary angiography was performed with a JL4 and then repeated after IC nitroglycerin 50 mcg x 2. At this time, it was apparent that the LAD had a moderate stenosis and IVUS and iFR were performed. Heparin anticoagulation was used for this procedure. ACT was maintained at >250 seconds. A 6 [place] Islander xb3 was engaged to the [place]. I [...] coronary artery [I25.42] Unstable angina us Ky Barbour MD CV CARDIAC CATH PROCEDURES Fi nal Result * Light Green Top (11/02/2024 6:15 AM EDT) Pathologist [facility] Extra Tube Hold for add-ons. 11/02/2024 8:01 AM EDT [facility] ([facility]) Comment:Auto resulted. Blood Venous blood specimen / Unknown Existing Catheter / Unknown 11/02/2024 6:15 AM EDT 11/02/2024 6:38 AM EDT Ky Barbour MD LAB BLOOD ORDERABLES Final Re sult [facility] ([facility]) [address] [place] [address] * (ABNORMAL) POCT activated clotting time docked device (11/01/2024 4:33 PM EDT) Activated Clotting Time POC 160(A) 82 - 152 sec [facility] ([facility]) Blood 11/01/2024 4:33 PM EDT Ky Barbour MD LAB POINT OF CARE TEST DOCKED DEVICE ORDERABLES Final Result Performing Organization Address City/[facility]/ZIP Co de Phone Number [facility] ([facility]) [address] [place] [address] * CORONARY ANGIOGRAPHY, ULTRASOUND - CORONARY (11/01/2024 [...] presents a direct admission from [facility] with chief complaint of chest pain. She [...] infiltrated over the right femoral artery. A 5-Solomon Islander Terumo sheath was placed in right femoral [...] was maintained at >250 seconds. A 5 [place] Islander Cordis XB 3.0 guide was engaged to the left main. I decided to proceed with IVUS. I then advanced a Runthrough wire to the distal left anterior descending. Next, I advanced a AnaBios IVUS catheter. IVUS imaging was performed and [...] small caliber Study Details NSTEMI us Ky Barbour MD CV CARDIAC CATH PROCEDURES Fi nal Result * (ABNORMAL) Anti-Xa (Heparin Level) (11/01/2024 6:04 AM EDT) Only the most recent of4 resultswithin the time period is included. Anti-Xa (Heparin) 0.27(L) 0.3 - 0.7 IU/mL 11/01/2024 6:37 AM EDT [facility] ([facility]) Comment:Rivaroxaban and Apix aban will interfere with the anti Xa assay used to monitor UFH and LMWH. Blood Blood sample taken from central line / Unknown Existing Catheter / Unknown 11/01/2024 6:04 AM EDT 11/01/2024 6:15 AM EDT us Ky Barbour MD LAB BLOOD ORDERABLES Final Re sult [facility] ([facility]) [address] [place] [address] * (ABNORMAL) Toxicology Screen, Urine (11/01/2024 2:12 AM EDT) Pathologist [facility] Barbiturates Negative Negative 11/01/2024 2:57 AM EDT [facility] ([facility]) Benzodiazepines Positive(A) Negative 11/02/19 25 2:57 AM EDT [facility] ([facility]) Propoxyphene Negative Negative 11/01/2024 2:57 AM EDT [facility] ([facility]) Methadone Negative Negative 11/01/2024 2:57 AM EDT [facility] ([facility]) Tricyclics Negative Negative 11/01/2024 2:57 AM EDT [facility] ([facility]) Phencyclidine Negative Negative 11/01/2024 2:57 AM EDT [facility] ([facility]) Opiates Positive(A) Negative 11/01/2024 2:57 AM EDT [facility] ([facility]) Cocaine Negative Negative 11/01/2024 2:57 AM EDT [facility] ([facility]) Amphetamines/Metha mphetamine Negative Negative 11/01/2024 2:57 AM EDT [facility] ([facility]) Cannabinoid Negative Negative 11/01/2024 2:57 AM EDT [facility] ([facility]) Urine Urine specimen obtained by clean catch procedure / Unknown Non-blood Collection / Unknown 11/01/2024 2:12 AM EDT 11/01/2024 2:18 AM EDT Narrative [facility] ([facility]) - 11/01/2024 2:57 AM EDT Unconfirmed screening results should only be used for medical purposes. us Ky Barbour MD LAB URINE ORDERABLES Final Re sult [facility] ([facility]) [address] [place] [address] * CORONARY ANGIOGRAPHY, LEFT HEART CATH (10/31/2024 7:34 PM EDT) Anatomical Region Laterality Modality Other Narrative 10/31/2024 7:51 PM EDT PROCEDURE PHYSICIAN: Tino Gilmore MD . Indications: Juan Garcia is a 34 y.o. female who is [...] she was brought to the cath lab radiology technician in a fasting state. The left wrist area was prepped and draped in usual fashion. Micropuncture technique was used for access in the radial artery. A 5-Solomon Islander x 11 cm sheath was placed. Verapamil was given through the sheath, and heparin was administered intravenously. A 5 Solomon Islander JR4 diagnostic catheter was advanced and this [...] catheter was then downsized to a 4 [place] Islander JR4 diagnostic catheter however this also was not able to engage the right coronary artery. Catheter was exchanged to a JR4 diagnostic catheter which could not engage the left coronary artery. Catheter was exchanged to a 4 [place] Islander JL 3.5 diagnostic catheter which eventually was able to engage the left coronary artery. Angiography was performed in multiple views. Catheter was exchanged over the wire to a 4 [place] Islander 3DRC catheter. Multiple attempts were made to [...] Study Details NSTEMI (non-ST elevated myocardial infarction) (CMS/[facility]) [I21.4] us Ky Barbour MD CV CARDIAC CATH PROCEDURES Fi nal Result * LIMITED ECHO (TTE) W/ COLOR FLOW AND IMAGING AGENT (10/31/2024 11:40 AM EDT) Anatomical Region Laterality Modality Other 10/31/2024 11:1 6 AM EDT Narrative 10/31/2024 12:44 PM EDT 1 1 [facility] Heart Station [address] [place] [address] [phone] (fax) Echocardiogram-[facility] Name: JUAN GARCAI Study Date: 10/31/2024 11:16 AM B/P: 106 [...] minimal pericardial effusion. Procedure Staff Reading Group: [facility] Mechanical Tech: DAVID Kearney, RDCS Ordering Physician: KY BARBOUR Wall Motion Scores -1 - hyperkinesia, 0 - not evaluated, 1 - normal, 2 - hypokinesia, 3 - akinesia, 4 - dyskinesia Procedure Note Mitul Moya MD - 10/31/2024 1 1 [facility] Heart Station [address] [place] [address] [phone] (fax) Echocardiogram-[facility] Name: JUAN GARCIA Study Date: 10/31/2024 11:16 AM B/P: 106 [...] minimal pericardial effusion. Procedure Staff Reading Group: [facility] Mechanical Tech: DAVID Kearney, RDCS Ordering Physician: KY BARBOUR Wall Motion Scores -1 - hyperkinesia, 0 - not evaluated, 1 - normal, 2 - hypokinesia, 3 - akinesia, 4 - dyskinesia us Ky Barbour MD CV ECHO PROCEDURES Final Resu lt * Hemoglobin A1c (10/31/2024 6:27 AM EDT) Hemoglobin A1C 4.5 4.0 - 6.0 % 10/31/2024 1:13 PM EDT [facility]) Estimated Average Glucose 82 mg/dL 10/31/2024 1:13 PM EDT [facility] ([facility]) Blood Blood sample taken from central line / Unknown Existing Catheter / Unknown 10/31/2024 6:27 AM EDT 10/31/2024 7:01 AM EDT us Ky Barbour MD LAB BLOOD ORDERABLES Final Re sult [facility] ([facility]) [address] [place] [address] * (ABNORMAL) Lipid panel (10/31/2024 6:27 AM EDT) Triglycerides 84 <150 mg/dL 10/31/2024 9:31 AM EDT [facility] ([facility]) Comment: TRIGLYCERIDE REFERENCE RANGE: 20 YEARS AND OLDER CARDIOVASCULAR RISK LESS THAN 150 mg/dL LOW RISK 150 TO 199 mg/dL BORDERLINE RISK 200 mg/dL AND GREATER HIGH RISK Cholesterol 116(L) 120 - 200 mg/dL 10/31/2024 9:31 AM EDT [facility] ([facility]) LDL Calculated 56 0 - 160 mg/dL 10/31/2024 9:31 AM EDT [facility] ([facility]) HDL 43 23 - 92 mg/dL 10/31/2024 9:31 AM EDT [facility] ([facility]) Non HDL Cholesterol 73 10/31/2024 9:31 AM EDT [facility] ([facility]) Total VLDL-C 17 0 - 40 mg/dL 10/31/2024 9:31 AM EDT [facility] ([facility]) Cholesterol/HDL Ratio 2.7 mg/dL 10/31/2024 9:31 AM EDT [facility] ([facility]) Blood Blood sample taken from central line / Unknown Existing Catheter / Unknown 10/31/2024 6:27 AM EDT 10/31/2024 7:11 AM EDT us Ky Barbour MD LAB BLOOD ORDERABLES Final Re sult [facility] ([facility]) [address] [place] [address] * TSH3 Reflex to FT4 (10/30/2024 7:11 PM EDT) TSH 3.46 0.34 - 5.60 mIU/L 10/30/2024 8:01 PM EDT [facility] ([facility]) Blood Venous blood specimen / Unknown Existing Catheter / Unknown 10/30/2024 7:11 PM EDT 10/30/2024 7:18 PM EDT [facility] BLOOD ORDERABLES Final Resu lt [facility]) [address] [place] [address] * (ABNORMAL) aPTT - baseline (10/30/2024 7:11 PM EDT) aPTT 42.0(H) 25.0 - 35.0 Seconds 10/30/2024 7:48 PM EDT [facility] ([facility]) Comment:Clinical significanc e of the APTT is questionable in the presence of heparin. Blood Venous blood specimen / Unknown Existing Catheter / Unknown 10/30/2024 7:11 PM EDT 10/30/2024 7:18 PM EDT [facility] LAB BLOOD ORDERABLES Final Resu lt [facility]) [address] [place] [address] * B-type natriuretic peptide (10/30/2024 7:11 PM EDT) BNP 77 0 - 100 pg/mL 10/30/2024 7:49 PM EDT [facility] ([facility]) Blood Venous blood specimen / Unknown Existing Catheter / Unknown 10/30/2024 7:11 PM EDT 10/30/2024 7:18 PM EDT Debbie Luna [facility] LAB BLOOD ORDERABLES Final Resu lt [facility] ([facility]) [address] [place] [address] * (ABNORMAL) Comprehensive metabolic panel (10/30/2024 7:11 PM EDT) Sodium 139 136 - 145 mmol/L 10/30/2024 7:46 PM EDT [facility] ([facility]) Potassium 3.7 3.5 - 5.1 mmol/L 10/30/2024 7:46 PM EDT [facility] ([facility]) Chloride 110(H) 98 - 107 mmol/L 10/30/2024 7:46 PM EDT [facility] ([facility]) CO2 23 21 - 31 mmol/L 10/30/2024 7:46 PM EDT [facility] ([facility]) Anion Gap 10 7 - 20 mmol/L 10/30/2024 7:46 PM EDT [facility] ([facility]) BUN 5(L) 7 - 25 mg/dL 10/30/2024 7:46 PM EDT [facility] ([facility]) Creatinine 0.64 0.60 - 1.20 mg/dL 10/30/2024 7:46 PM EDT [facility] ([facility]) BUN/Creatinine Ratio 7.8 10/16 7:46 PM EDT [facility] ([facility]) Glucose 101(H) 70 - 100 mg/dL 10/30/2024 7:46 PM EDT [facility] ([facility]) Calcium 7.8(L) 8.6 - 10.3 mg/dL 10/30/2024 7:46 PM EDT [facility] ([facility]) AST 19 13 - 39 U/L 10/30/2024 7:46 PM EDT [facility] ([facility]) ALT (SGPT) 7 7 - 52 U/L 10/30/2024 7:46 PM EDT [facility] ([facility]) Alkaline Phosphatase 45 34 - 104 U/L 10/30/2024 7:46 PM EDT [facility] ([facility]) Total Protein 5.0(L) 6.0 - 8.3 g/dL 10/30/2024 7:46 PM EDT [facility] ([facility]) Albumin 3.2(L) 3.5 - 5.7 g/dL 10/30/2024 7:46 PM EDT [facility] ([facility]) Total Bilirubin 0.2(L) 0.3 - 1.0 mg/dL 10/30/2024 7:46 PM EDT [facility] ([facility]) eGFR 118.1 >60.0 mL/min/1. 73m*2 10/30/2024 7:46 PM EDT [facility] ([facility]) Comment:The [facility] s estimated glomerular filtration rate (eGFR) [...] 10/30/2024 7:18 PM EDT us Debbie Luna [facility] BLOOD ORDERABLES Final Resu lt [facility] ([facility]) [address], [place] [id number] * CT abdomen pelvis w IV contrast [...] Mason. Mauricio Garcia MD IMG CT PROCEDURES Edited Result - Final * Urinalysis (08/17/2024 6:26 AM EDT) Color, Urine Yellow Colorless, Yellow, Light-Yellow 08/17/2024 6:45 AM T [facility] ([facility]) Clarity, Urine Clear Clear 08/17/2024 6:45 AM EDT [facility] ([facility]) pH, Urine 6.0 5.0 - 8.0 pH 08/17/2024 6:45 AM T [facility] ([facility]) Leukocytes, Urine Negative Negative 08/17/2024 6:45 AM EDT [facility] ([facility]) Nitrite, Urine Negative Negative 08/17/2024 6:45 AM T [facility] ([facility]) Protein, Urine Negative Negative mg/dL 08/17/2024 6:45 AM T [facility] ([facility]) Glucose, Urine Normal Normal mg/dL 08/18/19 6:45 AM T [facility] Bilirubin, Urine Negative Negative 08/17/2024 6:45 AM T [facility] ([facility]) Specific Stanley, Urine 1.019 1.010 - 1.030 08/17/2024 6:45 AM T [facility] ([facility]) Ketones, Urine Negative Negative mg/dL 08/17/2024 6:45 AM EDT [facility] ([facility]) Blood, Urine Negative Negative 08/17/2024 6:45 AM EDT [facility] ([facility]) Urobilinogen, Urine Normal Normal mg/dL 08/17/2024 6:45 AM EDT [facility] ([facility]) Urine Urine specimen obtained by clean catch procedure / Unknown Non-blood Collection / Unknown 08/17/2024 6:26 AM EDT 08/17/2024 6:32 AM EDT Narrative [facility] ([facility]) - 08/17/2024 6:45 AM EDT Microscopics not performed on urines with negative chemical reactions unless requested on original order. Jace Corley PA-C LAB URINE ORDERABLES Final Res ult Performing Organization Address City/[facility]/ZIP Co de Phone Number [facility]) [address] [place] [phone] * Blood culture, peripheral #2 (08/16/2024 9:37 PM EDT) Only the most recent of2 resultswithin the time period is included. Blood Culture No growth at 5 days SANDHYA 08/21/2024 10:01 PM EDT [facility] ([facility]) Blood Venous blood specimen / Unknown Venipuncture / Unknown 08/16/2024 9:37 PM EDT 08/16/2024 9:59 PM EDT Jcae Corley PA-C LAB MICROBIOLOGY - GENERAL ORD ERABLES Final Result [facility]) [address] [place] [address] * (ABNORMAL) Lactic acid, plasma (08/16/2024 9:37 PM EDT) Lactate 0.4(L) 0.5 - 2.2 mmol/L 08/16/2024 10:28 PM EDT [facility]) Blood Venous blood specimen / Unknown Existing Catheter / Unknown 08/16/2024 9:37 PM EDT 08/16/2024 9:59 PM EDT Jace Corley PA-C LAB BLOOD ORDERABLES Final Res ult [facility]) [address] [place] [address] * (ABNORMAL) Hepatic function panel (08/16/2024 9:37 PM EDT) Total Bilirubin 0.4 0.3 - 1.0 mg/dL 08/16/2024 10:24 PM EDT [facility]) Bilirubin, Direct 0.1 0 - 0.2 mg/dL 08/16/2024 10:24 PM EDT [facility]) Alkaline Phosphatase 73 34 - 104 U/L 08/16/2024 10:24 PM EDT [facility] ([facility]) AST 21 13 - 39 U/L 08/16/2024 10:24 PM EDT [facility] ([facility]) ALT (SGPT) 10 7 - 52 U/L 08/16/2024 10:24 PM EDT [facility]) Total Protein 5.4(L) 6.0 - 8.3 g/dL 08/16/2024 10:24 PM EDT [facility]) Albumin 2.9(L) 3.5 - 5.7 g/dL 08/16/2024 10:24 PM EDT [facility] ([facility]) Blood Venous blood specimen / Unknown Existing Catheter / Unknown 08/16/2024 9:37 PM EDT 08/16/2024 10:00 PM EDT Jace Corley PA-C LAB BLOOD ORDERABLES Final Res ult [facility]) [address] [place] [address] from Last 3 Months Insurance [facility] [employer] Advance Directives * Full Code (Latest Code Status on File) Date Activated Date Inactivated Comments 11/09/2024 12:31 PM 11/13/2024 4:34 PM * Full Code Date Activated Date Inactivated Comments 10/30/2024 7:14 PM 11/07/2024 7:10 PM * Full Code Date Activated Date Inactivated Comments 08/16/2024 9:21 PM 08/20/2024 5:55 PM Care Teams Merchandising Specialist Relationship Specialty Start Date End Date Britt Alas MD [address] [place] [address] PCP - General Family Medicine 08/17/24
--- OUTSIDE RECORDS SUMMARY | 2024-11-14 16:51 | XMS_ITS | Encounter Summary ---
Author Organization [facility] Address [address] [place] [address] Care Team Providers Care Revit Drafter Name Role Phone Anna Mendez COMPLIANCE FIELD TECHNICIAN Unavailable Unallocated, Noms Provider Primary Care Provi pako Thomas Alas MD Primary Care Provider [phone] Encounter Details Date Type Department Care Team (Late st Contact Info) Description 10/29/2023 Abstract [facility] [address] [place] [phone] Vero Medeiros LPN [address] [id number] Social History Tobacco Use Types Packs/Day Years [...] on filedocumented in this encounter Care Teams Revit Drafter Relationship Specialty Start Date End Date Unallocated, [place] [address] PCP - General 07/23/22 12/13/23 Thomas Alas MD [address] [place] [address] PCP - General Family Medicine 12/14/23 Anna Mendez NP [address] [place] [address] Referring Physician Family Medicine 07/23/22 documented as of this encounter
--- NOTE | 2024-11-14 16:52 | XR_ITS ---
[facility] [place] [id number] Patient Name: JUAN KONG MRN: [id number] date: 1990 Sex: F Assigned Patient Location: ED.MAIN Current Patient Location: ED.MAIN Accession/Order Number: [id number] Exam Date: 11/14/2024 16:48 Report Date: 11/14/2024 17:27 At the request of: OTILIO KLEIN DO Procedure: XR chest 2V Plain film chest 2 view HISTORY: Chest pain COMPARISON: 10/30/2024 FINDINGS: SUPPORT DEVICES: Central line tip overlies distal SVC. POSTSURGICAL CHANGES: None HEART: Within normal limits PULMONARY KATHRYN: Within normal limits MEDIASTINUM: Unremarkable LUNGS AND PLEURA: No acute lung process, pleural effusion or pneumothorax identified. BONY STRUCTURES: Intact ADDITIONAL FINDINGS None XR/XR chest 2V IMPRESSION: No acute process. Impression dictated by: Jason Davis M.D. 11/14/2024 5:27 PM Dictation Location: [facility] Electronically authenticated by: [id number] Y Date: 11/14/2024 17:27
--- OUTSIDE RECORDS SUMMARY | 2024-11-14 16:52 | XMS_ITS | Clinical Summary ---
Author Organization [facility] Address [address] [place] [address] Phone Care Team Providers Care Relationship Management Lead Name Role Phone Generic Provider, No Assigned [...] ey disease 06/29/2023 Hypokalemia 06/29/2023 Heart failure (Multi) 06/29/2023 Abdominal pain 03/16/2023 Nausea and vomiting 03/05/2023 RICHAR (obstructive sleep apnea) 03/05/2023 Asthma ([facility]) 03/05/2023 Anxiety 03/05/2023 Osteoarthritis 03/05/2023 Depression 03/05/2023 Median arcuate ligament syndrome 02/18/2023 Encounters Date Type Department Care Team Description 10/10/2024 11:00 AM EDT - 10/10/2024 11:59 PM EDT Hospital Encounter [facility] [address] [place] [address] Discharge Disposition: Home 10/09/2024 10:15 AM EDT Telemedicine [facility] [address] [place] [address] Jerad Magaña MD Median arcuate ligament syndrome (Primary Dx) Discharge Disposition: Home 10/06/2024 9:00 AM EDT Ancillary Procedure [facility] [address] [place] [address] Median arcuate ligament syndrome 09/18/2024 Orders Only [facility] [address] [place] [address] Crystal Monique RN Median arcuate ligament syndrome (Primary Dx) from Last 3 Months Family History Medical History Relation Name Comments Asthma Brother Adán Jeterino COPD Maternal Grandfather Cedrick Kraus Cancer Maternal Grandfather Cedrick Reynosoes Heart disease Maternal Grandfather Cedrick Kraus Kidney disease Maternal Grandfather Cedrick Reynosoes Hypertension Maternal Grandmother Grandpa Diabetes Mother Jessica [...] from your doctor or pharmacy? Never 06/30/2023 [facility] Utilities Answer Date Recorded In the [...] Recorded Patient Health Questionnaire-2 Score 0 10/09/2024 [facility] of Occupat ional Health - Occupational Stress [...] slept in a intermediate (including now)? No 06/30/2023 AUD[facility]-C Answer Date [...] Description 12/05/2024 8:00 AM EDT Ancillary Procedure [facility] [address] [place] [address] Health Maintenance Due Date Last Done Comments [...] 07/01/2024 07/02/2023, 06/15, 06/30/2023, Additional history exists Influenza Vaccine (#1) [...] this topic Medical Devices Implanted Type Area Concrete Stone Fabricator Device Identifier Shelf Expiration Date Model / Serial / Lot Membrane, Seprafilm, 5 X 6 In - [id number] Implanted:Qty : 1 on 03/05/2023 by Jerad Magaña MD at [facility] Implant N/A: Abdomen [employer] [id number] 10/02/2023 [id number] / / [id number] Procedures Procedure Name Priority Date/Time Associated Diagnosis [...] or treatment purposes, not interpreted by Radiologists. us Jerad Magaña MD IMG CT PROCEDURES Final Result IMAGING * Vascular US mesenteric artery duplex complete (10/06/2024 9:40 AM EDT) Anatomical Region Laterality Modality Abdomen Echocardiography 10/06/2024 9:13 AM EDT Narrative 10/06/2024 1:59 PM EDT [place] [id number] Vascular Lab Report [facility] US MESENTERIC ARTERY DUPLEX COMPLETE Patient Name: JUAN KONG Reading Physician: [id number] Ann Rivera MD Study Date: 10/06/2024 Ordering Provider: [id number] JERAD MAGAÑA MRN/PID: [id number] Fellow: Technologist: Leia Degroot RVT Date of /Age: 2 1990 Technologist 2: years Gender: F Admission Status: Outpatient Location [facility] Performed: 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 CPT Codes: 90847 Mesenteric Duplex scan ` CONCLUSIONS: Mesenteric: Superior [...] 61 cm/s KEELY Prox PSV 118 cm/s 63997 Ann Rivera MD Final Procedure Note Ann Rivera MD, [place] - 10/06/[address] [address] Vascular Lab Report [facility] US MESENTERIC ARTERY DUPLEX COMPLETE Patient Name: JUAN KONG Reading Physician: [id number] Viera MD Study Date: 10/06/2024 Ordering Provider: [id number] BARNETT MRN/PID: [id number] Fellow: Technologist: Leia Taylor Date of /Age: 2 1990 Technologist 2: years Gender: F Admission Status: Outpatient Location [facility] Performed: 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 CPT Codes: 58643 Mesenteric Duplex scan ` CONCLUSIONS: Mesenteric: Superior [...] 61 cm/s KEELY Prox PSV 118 cm/s 96715 Ann Rivera MD Final Jerad Magaña MD CV VASCULAR PROCEDURES Final Re sult * (ABNORMAL) POCT GLUCOSE (07/03/2023 7:17 AM EDT) POCT Glucose 121(H) 74 - 99 mg/dL 07/03/2023 7:24 AM EDT [facility] Blood Capillary blood specimen / Unknown 07/03/2023 7:17 AM EDT 07/03/2023 7:24 AM EDT Kina Ann MD LAB POINT OF CARE TE ST DOCKED DEVICE UNSOLICITED RESULTS Final Result [facility] [address] [id number] * (ABNORMAL) Renal Function Panel (07/02/2023 6:47 AM EDT) Glucose 101(H) 65 - 99 mg/dL 07/02/2023 7:53 AM T [facility] Sodium 137 133 - 145 mmol/L 07/02/2023 7:53 AM T [facility] Potassium 3.9 3.4 - 5.1 mmol/L 07/02/2023 7:53 AM [facility] Chloride 103 97 - 107 mmol/L 07/02/2023 7:53 AM T [facility] Bicarbonate 23(L) 24 - 31 mmol/L 07/02/2023 7:53 AM [facility] Urea Nitrogen 13 8 - 25 mg/dL 07/02/2023 7:53 AM [facility] Creatinine 0.70 0.40 - 1.60 mg/dL 07/02/2023 7:53 AM [facility] eGFR >90 >60 mL/min/1.7 3m*2 07/02/2023 7:53 AM [facility] Comment: Calculations of estimated GFR are performed using the 2020 CKD-EPI Study Refit equation without the race variable for the IDMS-Traceable creatinine methods. https://jasn.asnjournals.org/content/early//ASN.4828479799 Calcium 8.6 8.5 - 10.4 mg/dL 07/02/2023 7:53 AM [facility] Phosphorus 4.0 2.5 - 4.5 mg/dL 07/02/2023 7:53 AM [facility] Albumin 4.0 3.5 - 5.0 g/dL 07/02/2023 7:53 AM [facility] Anion Gap 11 <=19 mmol/L 07/02/2023 7:53 AM [facility] Blood Venous blood specimen / Unknown 07/02/2023 6:47 AM EDT 07/02/2023 6:58 AM EDT Loreto Doty MD LAB BLOOD ORDERABLES F inal Result [facility] [address] [place], [place] [id number] from Last 3 Months or Most Recently Relevant to Health Maintenance Insurance [employer] Member Subscriber Plan / Payer (Ef fective 2024-Present) Name:Juan Kong. Relation to Subscriber:Self Name:Juan Kong. Payer ID:[id number] (NAIC) Type:Not on file Address[address] [address] [employer] Advance Directives For more information, please contact: [phone] (Available ) * Full Code (Latest Code Status on File) Date Activated Date Inactivated Comments 03/05/2023 2:37 PM Question Answer Comments Plan of Care: Code Status Discussion Completed Decision Maker: Patient Care Teams Relationship Management Lead Relationship Specialty Start Date End Date Generic Provider, No Assigned Pcp, [place] [address] PCP - General Paperhanger Pipe 06/29/23
[2024-11-14] MEDS: HYDROMORPHONE HCL 1 MG/ML CARTRIDGE IV ×2 (17:48→19:05)
--- NOTE | 2024-11-14 18:37 | ED.GENADUL1 ---
HPI HPI - General Adult General Chief complaint: Chest Pain Stated complaint: CHEST PAIN Time Seen by Provider: 11/14/24 16:02 Source: patient Mode of arrival: Wheelchair History of Present Illness HPI narrative: Patient is a 34-year-old female, with an extensive medical history most notably for recently diagnosed spontaneous coronary artery dissection on DAPT, presenting to the emergency department with a 20-minute history of left-sided chest pain. Patient states she was driving in her car when she had acute onset of left-sided chest pain. She states the pain radiates to her back. She states it is sharp in nature and associated with nausea. She states it has a somewhat unique characteristic that was unlike the last time she presented with her SCD. She states she is compliant with her aspirin and clopidogrel daily. She denies any shortness of breath. No abdominal pain, nausea, or vomiting. No weakness or numbness/tingling in her extremities. Related Data Home Medications ?Medication ?Instructions ?Recorded ?Confirmed hydroxyzine HCl 25 mg tablet 25 mg PO BID PRN anxiety 09/17/22 11/08/24 topiramate 100 mg tablet 100 mg PO BID 09/17/22 11/08/24 metoclopramide HCl 10 mg tablet 10 mg PO AC PRN nausea and vomiting 06/14/23 11/08/24 escitalopram oxalate 20 mg tablet 20 mg PO DAILY 06/15/23 11/08/24 levothyroxine 75 mcg tablet 75 mcg PO DAILY 06/15/23 11/08/24 acetaminophen 325 mg tablet (Pain 650 mg PO Q4H PRN pain 06/24/23 11/08/24 Relief (acetaminophen)) blood sugar diagnostic (Oneuch 03/29/24 11/08/24 Ultra Test strips) blood-glucose meter (OneTouch 03/29/24 11/08/24 Ultra2 Meter) blood-glucose sensor (FreeStyle 03/29/24 11/08/24 Hunter 3 Plus Sensor device) fentanyl 25 mcg/hr transdermal 1 patch transdermal Q72H 03/29/24 11/08/24 patch hydrocodone 5 mg-acetaminophen 325 1 tab PO Q4H PRN pain 03/29/24 11/08/24 mg tablet lancets 30 gauge (OneTouch Delica 03/29/24 11/08/24 Plus Lancet) omeprazole 40 mg capsule,delayed 40 mg PO BID 03/29/24 11/08/24 release pen needle, diabetic 32 gauge x 03/29/24 11/08/24 5/32 (BD Stefania 2nd Gen Pen Needle) prucalopride 2 mg tablet 2 mg PO DAILY 03/29/24 11/08/24 trazodone 100 mg tablet 100 mg PO .qhs 03/29/24 11/08/24 ergocalciferol (vitamin D2) 1,250 1,250 mcg PO .Q7 06/21/24 11/08/24 mcg (50,000 unit) capsule hydrocortisone 10 mg tablet 10 mg PO DAILY 08/16/24 11/08/24 mirtazapine 45 mg tablet 45 mg PO BEDTIME 08/16/24 11/08/24 ondansetron 4 mg disintegrating 8 mg PO Q4H PRN nausea and vomiting 08/16/24 11/08/24 tablet aspirin 81 mg tablet,delayed 81 mg PO DAILY 11/08/24 11/08/24 release (Adult Aspirin Regimen) metoprolol tartrate 25 mg tablet 25 mg PO BID 11/08/24 11/08/24 rosuvastatin 10 mg tablet (Crestor) 10 mg PO DAILY 11/08/24 11/08/24 verapamil 240 mg 24 hr 240 mg PO DAILY 11/08/24 11/08/24 capsule,extended release Previous Rx's ?Medication ?Instructions ?Recorded tramadol 50 mg tablet 50 mg PO Q6H PRN pain #28 tabs 06/16/23 Lactobacillus 1 tab PO BID #40 wafers 09/02/24 acidophilus-Lactbacill.bifidus 1 billion cell oral wafer cefdinir 300 mg capsule 300 mg PO Q12H 14 days #28 caps 09/02/24 methocarbamol 500 mg tablet 500 mg PO BID PRN Muscle spasm #0 09/02/24 tabs promethazine 25 mg rectal 25 mg NV Q6H PRN nausea and 10/27/24 suppository vomiting #12 ea promethazine 25 mg tablet 25 mg PO TID PRN nausea and 10/27/24 vomiting #10 tabs Allergies Allergy/AdvReac Type Severity Reaction Status Date / Time adhesive Allergy Rash Verified 11/14/24 16:03 NSAIDS (Non-Steroidal Allergy intolerance Verified 11/14/24 16:03 Anti-Inflamma codeine AdvReac Vomiting Verified 11/14/24 16:03 Opioid HPI Opioid Management Most Recent Opioid Data: Last Pain Scale 9 Today, 17:48 Last ED Pain Assessment Today, 16:15 Last MAR Pain Assessment Today, 16:36 Last ORT Total Score 0 08/28/24, 18:16 Last ORT Risk Category Low Risk 08/28/24, 18:16 Ur Phencyclidine Scrn, (NEGATIVE) Negative 08/28/24, 14:10 Review of Systems ROS Status of ROS 10 or more systems reviewed and unremarkable except as noted in history and below [facility] Medical History (Updated 10/30/24 @ 15:15 by Barbara Benítez MD) Hypoglycemia ?E16.2 - Hypoglycemia, unspecified (ICD-10) Gastroenteritis ?K52.9 - Noninfective gastroenteritis and colitis, unspecified (ICD-10) Feeding by G-tube ?Z93.1 - Gastrostomy status (ICD-10) Abdominal pain ?R10.9 - Unspecified abdominal pain (ICD-10) Small bowel intussusception ?K56.1 - Intussusception (ICD-10) Nausea and vomiting ?R11.2 - Nausea with vomiting, unspecified (ICD-10) Flank pain ?R10.9 - Unspecified abdominal pain (ICD-10) Abdominal pain ?R10.9 - Unspecified abdominal pain (ICD-10) Acute abdomen ?R10.0 - Acute abdomen (ICD-10) Intractable nausea and vomiting ?R11.2 - Nausea with vomiting, unspecified (ICD-10) Intractable abdominal pain ?R10.9 - Unspecified abdominal pain (ICD-10) Depression ?F32.A - Depression, unspecified (ICD-10) Asthma ?J45.909 - Unspecified asthma, uncomplicated (ICD-10) Dyspareunia Pelvic pain ?R10.2 - Pelvic and perineal pain (ICD-10) Ovarian cyst ?N83.209 - Unspecified ovarian cyst, unspecified side (ICD-10) PONV (postoperative nausea and vomiting) ?R11.2 - Nausea with vomiting, unspecified (ICD-10) ?Z98.890 - Other specified postprocedural states (ICD-10) PCOS (polycystic ovarian syndrome) ?E28.2 - Polycystic ovarian syndrome (ICD-10) Hypothyroidism (acquired) ?E03.9 - Hypothyroidism, unspecified (ICD-10) Anxiety ?F41.9 - Anxiety disorder, unspecified (ICD-10) GERD (gastroesophageal reflux disease) ?K21.9 - Gastro-esophageal reflux disease without esophagitis (ICD-10) Sleep apnea ?G47.30 - Sleep apnea, unspecified (ICD-10) Anemia ?D64.9 - Anemia, unspecified (ICD-10) Fibromyalgia ?M79.7 - Fibromyalgia (ICD-10) Syncope (07/07/13) ?R55 - Syncope and collapse (ICD-10) Shingles ?B02.9 - Zoster without complications (ICD-10) Headache ?R51.9 - Headache, unspecified (ICD-10) Migraine ?G43.909 - Migraine, unspecified, not intractable, without status migrainosus (ICD-10) Mechanical ileus (01/31/20) ?K56.609 - Unspecified intestinal obstruction, unspecified as to partial versus complete obstruction (ICD-10) COVID-19 (~02/2020) ?U07.1 - COVID-19 (ICD-10) Kidney stones ?N20.0 - Calculus of kidney (ICD-10) Surgical History S/P percutaneous endoscopic gastrostomy (PEG) tube placement ?Z93.1 - Gastrostomy status (ICD-10) 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 - Celiac artery compression syndrome (ICD-10) H/O shoulder surgery (2022) ?Z98.890 - Other specified postprocedural states (ICD-10) History of hip surgery ?Z98.890 - Other specified postprocedural states (ICD-10) S/P right knee arthroscopy ?Z98.890 - Other specified postprocedural states (ICD-10) S/P left knee arthroscopy ?Z98.890 - Other specified postprocedural states (ICD-10) Hx of tonsillectomy ?Z90.89 - Acquired absence of other organs (ICD-10) History of thoracic surgery (~2021) ?Z98.890 - Other specified postprocedural states (ICD-10) History of esophagogastroduodenoscopy (EGD) (10/04/13) ?Z98.890 - Other specified postprocedural states (ICD-10) History of cholecystectomy (10/06/13) ?Z90.49 - Acquired absence of other specified parts of digestive tract (ICD-10) Delivery by section (~2016) Delivery by section (01/17/18) H/O colonoscopy (~2018) ?Z98.890 - Other specified postprocedural states (ICD-10) S/P right knee arthroscopy (07/21/18) ?Z98.890 - Other specified postprocedural states (ICD-10) Delivery by section (06/19/19) History of appendectomy (09/25/19) ?Z90.49 - Acquired absence of other specified parts of digestive tract (ICD-10) H/O laparoscopy (11/10/19) ?Z98.890 - Other specified postprocedural states (ICD-10) History of liver biopsy (~04/2020) ?Z98.890 - Other specified postprocedural states (ICD-10) H/O laparoscopy (07/18/20) ?Z98.890 - Other specified postprocedural states (ICD-10) H/O arthroscopy of right knee (08/07/20) ?Z98.890 - Other specified postprocedural states (ICD-10) S/P laparoscopic sleeve gastrectomy (09/03/20) ?Z98.84 - Bariatric surgery status (ICD-10) H/O: hysterectomy (11/12/20) ?Z90.710 - Acquired absence of both cervix and uterus (ICD-10) History of hernia repair (03/20/21) ?Z98.890 - Other specified postprocedural states (ICD-10) ?Z87.19 - Personal history of other diseases of the digestive system (ICD-10) Family History Other Family history of cancer Family history of diabetes mellitus Family history of hypertension Family history of myocardial infarction PONV (postoperative nausea and vomiting) Social History (Updated 08/16/24 @ 04:44 by Shelley Wong) Within the past year, how often did you have a drink containing alcohol: never Score interpretation: A score less than 3 is consistent with normal alcohol consumption. Smoking status: Never smoker Non-prescribed substance use: denies use Previous occupational history: disabled Known occupational exposures/hazards details: disabled Highest level of school completed/degree received: Master's degree Are you now , , , , never or living with a partner: In a typical week, how many times do you talk on the telephone with family, friends, or neighbors: 3 or more times per week How often do you get together with friends or relatives: twice per week How often do you attend denominational or yazidi services: 4 or more times per year Do you belong to any clubs or organizations such as denominational groups unions, [employer] or athletic groups, or school groups: no Total score: 3 Score interpretation: A score of greater than or equal to 2 indicates the lowest level of social isolation. Little interest or pleasure in doing things: not at all Feeling down, depressed, or hopeless: not at all Feel stressed/tense/nervous/anxious/difficulty sleeping: to some extent Do you think of yourself as: straight/heterosexual Gender Identity: female Exam Narrative Exam Narrative: CONSTITUTIONAL: Patient appears to be in significant pain, answering questions and follow commands appropriately SKIN: Was warm and dry. EYES: Sclerae white. EARS, NOSE, THROAT: No JVD. RESPIRATORY: Clear to auscultation bilaterally, no wheezes, crackles, or stridor, no use of accessory muscles CARDIOVASCULAR: Normal rate and regular rhythm. There is no S3, S4, murmur, rub. Radial and DP pulses are 2+ and symmetrical. GASTROINTESTINAL: Abdomen was soft, non-tender, and non-distended. There is no guarding or rebound tenderness MUSCULOSKELETAL: There was no lower extremity edema, erythema, or tenderness. There is right groin ecchymosis from her prior catheterization site - no hematoma. NEUROLOGIC: Patient is awake and alert. Equal strength in all extremities. Facies were symmetrical. Constitutional Vital Signs, click to edit/add: Last Vital Signs Temp 97.8 F 11/14/24 16:03 Pulse 67 11/14/24 18:00 Resp 16 11/14/24 18:00 BP 118/65 11/14/24 16:03 Pulse Ox 97 11/14/24 18:00 O2 Del Method Room Air 11/14/24 16:03 Course Vital Signs Vital signs: Vital Signs Temperature 97.8 F 11/14/24 16:03 Pulse Rate 84 11/14/24 16:03 Respiratory Rate 24 H 11/14/24 16:03 Blood Pressure 118/65 11/14/24 16:03 Pulse Oximetry 100 11/14/24 16:03 Oxygen Delivery Method Room Air 11/14/24 16:03 Temperature 97.8 F 11/14/24 16:03 Pulse Rate 67 11/14/24 18:00 Respiratory Rate 16 11/14/24 18:00 Blood Pressure 118/65 11/14/24 16:03 Pulse Oximetry 97 11/14/24 18:00 Oxygen Delivery Method Room Air 11/14/24 16:03 Medical Decision Making [facility] Narrative Medical decision making narrative: Patient is a 34-year-old female, has a extensive medical history including recently diagnosed spontaneous coronary artery dissection on DAPT, presenting to the emergency department for 20-minute history of left-sided chest pain. Her vital signs arrival are within normal limits. She is afebrile and hemodynamically stable. Examination as noted above. Her cardiopulmonary examination is unremarkable. She does have ecchymosis over the right groin from prior catheterization site without hematoma. Differential diagnose includes coronary vasospasm, worsening dissection, aortic dissection, STEMI, NSTEMI, or other electrolyte/metabolic derangement. IV was established and laboratory studies were obtained. CT angiogram of the chest/abdomen/pelvis were obtained. She was given 325 mg of chewed aspirin. She was given 4 mg of IV morphine, IV Benadryl, IV Compazine for symptomatic treatment. 12 Lead EKG: Normal sinus rhythm at a rate of 83. Normal axis. No ST segment elevations. QRS, NV, and QTc interval within normal limits. Final impression: normal sinus rhythm without evidence of acute myocardial ischemia Chest x-ray independently reviewed/interpreted by myself demonstrated no acute cardiopulmonary process. Laboratory studies were unremarkable. No significant electrolyte or metabolic derangement. No evidence of acute kidney injury. No anemia, leukocytosis, or thrombocytopenia. Initial and repeat 2-hour troponin were negative 5.6 and 5.7 respectively. This is significant improved from 10/27/2024 when she was diagnosed with SCD and a troponin in the 700s. My shift is now coming to an end. At the time of signout, CT angio of the chest/abdomen/pelvis were pending. She did require an additional dose of 1 mg IV Dilaudid for pain. FINAL IMPRESSION: #Acute left-sided chest pain #History of recent coronary artery dissection DISPOSITION: Signed out to [facility] ED physician CONDITION: Stable Medical Records Medical records reviewed: Yes I reviewed the patient's medical records Lab Data Lab results reviewed: Yes I reviewed the patient's lab results Labs: Lab Results 11/14/24 11/14/24 Range/Units 16:12 18:04 WBC 3.6 L (4.0-11.0) 10^3/uL RBC 3.04 L (4.20-5.40) 10^6/uL Hgb 9.2 L (12.0-16.0) g/dL Hct 27.8 L (36.0-48.0) % MCV 91.4 (81.0-99.0) fL MCH 30.3 (26.7-34.0) pg MCHC 33.1 (29.9-35.2) g/dL RDW 14.6 (11.0-15.0) % Plt Count 296 (150-450) 10^3/uL MPV 10.6 (9.5-13.5) fL Neut % (Auto) 36.0 L (43.0-75.0) % Lymph % (Auto) 47.4 (20.5-60.0) % [place] % (Auto) 10.0 (1.7-12.0) % Eos % (Auto) 5.8 (0.9-7.0) % Baso % (Auto) 0.8 (0.2-2.0) % Neut # (Auto) 1.3 L (1.4-6.5) 10^3/uL Lymph # (Auto) 1.7 (1.2-3.8) 10^3/uL [place] # (Auto) 0.4 (0.3-0.8) 10^3/uL Eos # (Auto) 0.2 (0.0-0.7) 10^3/uL Baso # (Auto) 0.0 (0.0-0.1) 10^3/uL Abs Immat Gran (auto) 0.00 (0.00-0.03) 10^3/uL Imm/Tot Granulo (auto) 0.0 (0.0-0.5) % Sodium 144 (136-145) mmol/L Potassium 3.8 (3.5-5.1) mmol/L Chloride 108 H (98-107) mmol/L Carbon Dioxide 25.3 (21.0-32.0) mmol/L Anion Gap 14.5 BUN 12.0 (7.0-18.0) mg/dL Creatinine 0.73 (0.55-1.02) mg/dL Est GFR ( Amer) >60 (>=60 mL/min/1.73m^2) Est GFR (Non-Af Amer) >60 (>=60 mL/min/1.73m^2) BUN/Creatinine Ratio 16.4 Glucose 86 (74-106) mg/dL Calcium 7.9 L (8.5-10.1) mg/dL Troponin I High Sens 5.6 5.7 (4.0-51.3) pg/mL Imaging Data Chest x-ray: Attestation: I personally reviewed and interpreted this imaging study as follows: Radiologist's impression: ITS Impressions Chest X-Ray 11/14/24 16:52 IMPRESSION: No acute process. Impression dictated by: Jason Davis M.D. 11/14/2024 5:27 PM Dictation Location: [place] [address] Electronically authenticated by: [id number] Y Date: 11/14/2024 17:27 Discharge Plan Discharge Patient Disposition: Still a Patient
--- NOTE | 2024-11-14 18:41 | CT_ITS ---
The [address] [address] Patient Name: JUAN KONG MRN: [id number] date: 1990 Sex: F Assigned Patient Location: ED.MAIN Current Patient Location: ED.MAIN Accession/Order Number: [id number] Exam Date: 11/14/2024 18:33 Report Date: 11/14/2024 19:14 At the request of: OTILIO KLEIN DO Procedure: CT angio abdomen pelvis Cta Chest, Abdomen and Pelvis TECHNIQUE: Axial imaging with 2-D reconstruction. The CT exam was performed using one or more the following dose reduction techniques: Automated exposure control, adjustment of the MA and/or Kv according to patient size, or use of the iterative reconstruction technique. History: Chest pain today. Extending into the back between shoulder blades. History of heart catheterization with removal of hematoma. History of coronary artery dissection. COMPARISON: 06/28/2023 THYROID: No significant thyroid abnormality identified. AIRWAY: Central airway is patent. ESOPHAGUS: Esophagus normal course and caliber. HEART: Heart is not enlarged. PERICARDIAL EFFUSION: Minimal CORONARY ARTERY CALCIFICATION: None MEDIASTINUM: Nonenlarged mediastinal lymph nodes identified. HILAR REGION: No hilar mass or adenopathy is seen. THORACIC AORTA: No thoracic aortic aneurysm or dissection. No atherosclerosis LUNG INTERSTITIUM: No infiltrate or congestion identified. PLEURAL EFFUSION No pleural effusion identified. PNEUMOTHORAX: No pneumothorax seen. LUNG NODULE: No lung nodules identified. CHEST WALL: No chest wall abnormality seen. The bony chest intact. LIVER: Cystic changes hepatic steatosis GALLBLADDER: Cholecystectomy BILE DUCTS: Mild complex inflammatory dilatation of the common bile duct. SPLEEN: Normal PANCREAS: Unremarkable ADRENAL GLANDS: The adrenal glands are unremarkable. KIDNEYS: Unremarkable ABDOMINAL AORTA: No dissection or aneurysm of the aorta or aortic branches. RETROPERITONEUM: No significant retroperitoneal abnormalities identified. STOMACH:Gastric surgery changes SMALL BOWEL: The small bowel loops are nondistended. APPENDIX: The appendix is normal. COLON: There is no colitis or diverticulitis. URINARY BLADDER: Urinary bladder is unremarkable. REPRODUCTIVE STRUCTURES: The reproductive structures are unremarkable. FREE AIR: None FREE FLUID: None ABDOMINAL WALL: Inflammatory changes and minimal hematoma noted in the right inguinal region consistent with recent catheterization. INGUINAL HERNIA: None BONES:Degenerative changes CT/CT angio chest IMPRESSION: No aortic aneurysm or dissection. No acute chest or abdominal pelvic findings. PRELIMINARY RESULTS: None given Impression dictated by: Jason Davis M.D. 11/14/2024 7:14 PM Dictation Location: [facility] Electronically authenticated by: [id number] Y Date: 11/14/2024 19:14
--- NOTE | 2024-11-14 18:41 | CT_ITS ---
The [address] [address] Patient Name: JUAN KONG MRN: [id number] date: 1990 Sex: F Assigned Patient Location: ED.MAIN Current Patient Location: ED.MAIN Accession/Order Number: [id number] Exam Date: 11/14/2024 18:33 Report Date: 11/14/2024 19:14 At the request of: OTILIO KLEIN DO Procedure: CT angio abdomen pelvis Cta Chest, Abdomen and Pelvis TECHNIQUE: Axial imaging with 2-D reconstruction. The CT exam was performed using one or more the following dose reduction techniques: Automated exposure control, adjustment of the MA and/or Kv according to patient size, or use of the iterative reconstruction technique. History: Chest pain today. Extending into the back between shoulder blades. History of heart catheterization with removal of hematoma. History of coronary artery dissection. COMPARISON: 06/28/2023 THYROID: No significant thyroid abnormality identified. AIRWAY: Central airway is patent. ESOPHAGUS: Esophagus normal course and caliber. HEART: Heart is not enlarged. PERICARDIAL EFFUSION: Minimal CORONARY ARTERY CALCIFICATION: None MEDIASTINUM: Nonenlarged mediastinal lymph nodes identified. HILAR REGION: No hilar mass or adenopathy is seen. THORACIC AORTA: No thoracic aortic aneurysm or dissection. No atherosclerosis LUNG INTERSTITIUM: No infiltrate or congestion identified. PLEURAL EFFUSION No pleural effusion identified. PNEUMOTHORAX: No pneumothorax seen. LUNG NODULE: No lung nodules identified. CHEST WALL: No chest wall abnormality seen. The bony chest intact. LIVER: Cystic changes hepatic steatosis GALLBLADDER: Cholecystectomy BILE DUCTS: Mild complex inflammatory dilatation of the common bile duct. SPLEEN: Normal PANCREAS: Unremarkable ADRENAL GLANDS: The adrenal glands are unremarkable. KIDNEYS: Unremarkable ABDOMINAL AORTA: No dissection or aneurysm of the aorta or aortic branches. RETROPERITONEUM: No significant retroperitoneal abnormalities identified. STOMACH:Gastric surgery changes SMALL BOWEL: The small bowel loops are nondistended. APPENDIX: The appendix is normal. COLON: There is no colitis or diverticulitis. URINARY BLADDER: Urinary bladder is unremarkable. REPRODUCTIVE STRUCTURES: The reproductive structures are unremarkable. FREE AIR: None FREE FLUID: None ABDOMINAL WALL: Inflammatory changes and minimal hematoma noted in the right inguinal region consistent with recent catheterization. INGUINAL HERNIA: None BONES:Degenerative changes CT/CT angio abdomen pelvis IMPRESSION: No aortic aneurysm or dissection. No acute chest or abdominal pelvic findings. PRELIMINARY RESULTS: None given Impression dictated by: Jason Davis M.D. 11/14/2024 7:14 PM Dictation Location: [place] Electronically authenticated by: [id number] Y Date: 11/14/2024 19:14
[2024-11-14] MEDS: PROMETHAZINE HCL 25 MG in 0.9 % SODIUM CHLORIDE 50 ML 204 MG IV (20:44)
[2024-11-14] MEDS: DIAZEPAM 10 MG/2 ML SYRINGE 5 MG IV (21:05)
[2024-11-14 21:36] LABS: Alanine Aminotransferase 20 U/L (14-59); Albumin Globulin Ratio 0.9; Albumin Level 2.9 g/dL (3.4-5.0); Alkaline Phosphatase 73 U/L (46-116); Aspartate Amino Transferase 32 U/L (15-37); Globulin 3.3 g/dL; Total Protein 6.2 g/dL (6.4-8.2)
[2024-11-14] MEDS: ORPHENADRINE 60 MG/2 ML VIAL IV (23:04)
[2024-11-14] MEDS: METHYLPREDNISOLONE SOD SUCC PF 125 MG/2 ML VIAL IVP (23:04)
[2024-11-15] VITALS (42 sets, daily range): BP systolic 111–131; BP diastolic 73–80; PULSE 61–90; O2SAT 98
--- NOTE | 2024-11-15 03:12 | PC.NURSE ---
At 0130, pt has requested no automatic BP cuff. Spot checks [place] continued.
== END 2024-11-15 06:20 | disposition left against medical advice (07) ==
PROVIDERS: Student in an Organized Health Care Education/Training Program; Emergency Provider Internal Medicine; PCP Family Medicine
DX: R07.9 Chest pain, unspecified (principal); Z53.29 Procedure and treatment not carried out because of patient's decision for other reasons; E86.0 Dehydration; Z90.49 Acquired absence of other specified parts of digestive tract; K83.09 Other cholangitis; Z79.82 Long term (current) use of aspirin; Z79.899 Other long term (current) 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; I25.42 Coronary artery dissection
CPT/HCPCS: 36415; 36591; 71046; 71275; 74174; 80048; 80076; 84484; 85025; 87040; 93005; 96361; 96365; 96374; 96375; 96376; 99285; J0780; J1171; J1200; J2270; J2360; J2550; J2919; J3360; Q9967

== ENCOUNTER 2024-11-19 09:13 | Observation (INO) | payer MEDICAID, SELFPAY ==
--- OUTSIDE RECORDS SUMMARY | 2024-08-15 05:30 | XMS_ITS ---
Author Organization [facility] Serv[facility] Address [address] [place] [address] Care Team Providers Care Bioinformatics Assistant Name Role Phone Ashley Bryson Primary Care Provider [phone] REASON FOR VISIT FILLING Encounters Encounter Location Date Provider Diagnosis [address] [place] [place] [address] 08/15/2024 Ashley Bryson Plan Of Treatment No Information Progress Notes * JUAN KONG MDOB:1990 (34 yo F)Acc No.[id number]:08/15/2024 Patient: Jarrod AlejandroJUAN Salomon Sandra Provider: Carito Bryson DDS :1990 A ge:34 Y S ex:Female Date:08/15/2024 Address:[address] [place], [place] [id number] Subjective: * Chief Complaints: * 1 . FILLING. * Medical History: Objective: * Vitals: Assessment: Plan: * Treatment: * Images: * Electronic signature of Panfilo Bryson DDS on 11/19/2024 at 09:22 AM EDT Sign off status: Pending * Provider: Carito Bryson DDS Date: 0 08/15/2024 Generated for Hailey jordan/Ari/Chance on: 1 09:22 AM EDT
--- OUTSIDE RECORDS SUMMARY | 2024-10-30 18:28 | XMS_ITS | Encounter Summary ---
Author Organization [facility] Address [address] [place] [address] Care Team Providers Care Water Service Supervisor Name Role Phone Thomas Alas MD Primary Care Provider [phone] Reason for Referral * (Routine) - Pending Review Specialty Diagnoses / Procedures Referred By Contac t Referred To Contact Procedures ECG 12 lead Mauricio Garcia MD [address] [place] [phone] Phone: tel: fax: Referral ID Status Reason Start Date Expiration Date V isits Requested Visits Authorized [id number] Pending Review 11/07/2024 11/07/2025 1 1 * (Emergency) - Pending Review Specialty Diagnoses / Procedures Referred By Contac t Referred To Contact Procedures ECG 12 lead Tomasa Disla MD [address] [place] [address] Phone: tel: fax: Referral ID Status Reason Start Date Expiration Date V isits Requested Visits Authorized [id number] Pending Review 11/04/2024 11/04/2025 1 1 * (Emergency) - Pending Review Specialty Diagnoses / Procedures Referred By Contac t Referred To Contact Procedures ECG 12 lead Ky Ritter MD [address] [place] [address] Phone: tel: fax: Referral ID Status Reason Start Date Expiration Date V isits Requested Visits Authorized [id number] Pending Review 11/02/2024 11/02/2025 1 1 * (Routine) - Pending Review Specialty Diagnoses / Procedures Referred By Contac t Referred To Contact Procedures ECG 12 lead Ky Ritter MD [address] [place] [address] Phone: tel: fax: Referral ID Status Reason Start Date Expiration Date V isits Requested Visits Authorized [id number] Pending Review 11/01/2024 11/01/2025 1 1 * (Routine) - Pending Review Specialty Diagnoses / Procedures Referred By Contac t Referred To Contact Procedures ECG 12 lead Ky Ritter MD [address] [place] [address] Phone: tel: fax: Referral ID Status Reason Start Date Expiration Date V isits Requested Visits Authorized [id number] Pending Review 10/31/2024 10/31/2025 1 1 * (Routine) - Pending Review Specialty Diagnoses / Procedures Referred By Contac t Referred To Contact Procedures ECG 12 lead Katie Altamirano MD [address] [facility] [address] [place] [address] Phone: tel: fax: Referral ID Status Reason Start Date Expiration Date V isits Requested Visits Authorized [id number] Pending Review 10/31/2024 10/31/2025 1 1 * (Emergency) - Pending Review Specialty Diagnoses / Procedures Referred By Contac t Referred To Contact Procedures ECG 12 lead Debbie Luna CNP [address] [place] [address] Phone: tel: fax: Referral ID Status Reason Start Date Expiration Date V isits Requested Visits Authorized [id number] Pending Review 10/30/2024 10/30/2025 1 1 Reason for Visit * Auth/Cert (Routine) Specialty Diagnoses / Procedures Referred By Contac t Referred To Contact Diagnoses Chest pain NSTEMI Procedures NO CODED SERVICE Sandeep Casey MD [address] [place] [address] Phone: tel: fax: [facility] [address] [place] [address] Phone: tel: fax: Referral ID Status Reason Start Date Expiration Date Visits Re quested Visits Authorized [id number] 1 1 Encounter Details Date Type Department Care Team (Late st Contact Info) Description 10/30/2024 6:28 PM EDT - 11/07/2024 5:10 PM EDT Hospital Encounter [facility] [address] [place] [phone] Sandeep Casey MD [address] [place] [phone] Ky Ritter MD [address] [place] [address] Jose Angel Fox MD [address] [place] [address] Mauricio Garcia MD [address] [place] [phone] Tino Gilmore MD [address] [facility] [address] [facility] [place] [phone] Hematoma (Primary Dx); Chest pain; NSTEMI (non-ST elevated myocardial infarction) (CMS/HCC); Spontaneous dissection of coronary artery; Gastroparesis; Gastroesophageal reflux disease without esophagitis Discharge Dis[place] [facility] [place] Social History Tobacco Use Types Packs/Day Years Used Date Smoking Tobacco: Never Smokeless Tobacco: Never [facility] Utilities Answer Date Recorded [...] were you homeless or living in a long-term (including now)? No 10/30/2024 Hunger Vital Sign [...] Author No pain 11/07/2024 2:49 PM EDT Palmer Butt RN * Mcintosh Fall Risk Interventions Question Answer Date of Assessment Author Mcintosh Fall Risk Interventions Complete 11/06/2024 8:08 PM EDT Yunior Baker RN * Patient Requests Lesser Strength Medication Answer Date of Assessment Author Patient Request for Lesser Medication 11/01/2024 8:04 PM EDT Fern Pierce RN * Pain Assessment Timer Question Answer Date of Assessment Author Restart Pain Assessment Timer Yes 11/07/2024 3:27 PM EDT Patricia Butt RN * Sepsis Model Scores Question [...] Onset Ongoing 11/05/2024 5:39 PM EDT Joanna French, DEE Pain Frequency Constant/continuous 11/05/2024 5 :39 PM EDJoanna Lopez RN Response to Interventions Slight improvement 3:27 [...] MEWS SCORE 0 11/06/2024 1:01 PM EDT Chron Matthias valdezq * Question Answer Date of Assessment Author [...] Throat (WDL) X 11/07/2024 7:21 AM EDT Patricia Butt R N R Eye Mildly impaired [...] 7:21 AM EDT Patricia Butt RN Tongue [place];Moist 11/07/2024 7:21 AM EDT Patricia Butt RN Mucous Membrane(s) Moist;[place];Intact 11/07/2024 7:21 A M Patricia Malone RN Teeth Intact 11/07/2024 7:21 AM EDPatricia Miranda RN Head and Face Symmetrical 11/07/2024 7:21 AM EDPatricia Miranda RN Neck Symmetrical 11/07/2024 7:21 AM EDT Patricia Butt RN Lips Dry;Moist;[place] 11/07/2024 7:21 AM EDT Car rPatricia RN * Question Answer Date of Assessment Author MAP (mmHg) 73 11/07/2024 4:09 PM Patricia Malone RN * Short Portable Mental Status Question Answer Date of Assessment Author What are the date, month, year? 0 7:21 AM Patricia Malone RN What is the day of the week? 0 11/07/2024 7 :21 AM JUNT Patricia Butt RN What is the name of this place? 0 7:21 AM JUNT Patricia Butt RN What is your phone [...] Question Answer Date of Assessment Author Warm [place] Applied 11/02/2024 10:14 PM EDT Fern Henley [...] Response Responds to commands 11/07/19 12:00 PM UJNT Fang Oreilly RN RUE Sensation Full sensation [...] Reflex Present 11/05/2024 4:00 PM EDT Joanna French RN R Corneal Reflex Intact 11/05/2024 4:00 PM [...] 11/06/2024 12 :00 PM Fang Martinez RN RLE Motor Strength Normal power 11/06/2024 [...] Breath Sounds Clear;Diminished 11/07/2024 7: 21 AM Patricia Malone RN R Lower Posterior (R Basilar) Diminished 11/06/2024 12:00 PM Fang Martinez RN L Lower Posterior (L Basilar) Diminished 11/06/2024 12:00 PM Fang Martinez RN Respiratory Pattern Normal 11/07/2024 7:21 AM ED T Patricia Butt RN Chest Assessment Chest expansion symmetrical 11/07/2024 7:21 AM Patricia Malone RN Cough None 11/07/2024 7:21 AM Patricia Malone RN Respiratory Effort Unlabored 11/07/2024 7:21 AM JUNT Patricia Butt RN Respiratory Depth/Rhythm Shallow 11/07/2024 7:21 AM JUNT Patricia Butt RN Lobe Specific Breath Sounds Posterior left lower lobe;Posterior right lower lobe 11/06/2024 12:00 PM Fang Martinez RN * Question Answer Date of Assessment Author Ectopy Premature ventricula r contractions 11/06/2024 12:00 PM Fang Martinez RN Cardiac Regularity Regular 11/07/2024 7:21 AM Patricia Malone RN Mail Examiner Status On 11/07/2024 7:21 AM JUNT Patricia [...] Date of Assessment Author Last BM Date [id number] 11/06/2024 8:00 AM EDT Fang Oreilly RN [...] 11/06/2024 12:00 PM EDT Fang Oreilly RN LLLesia Capillary Refill Less than/equal to 2 seconds [...] RLE Assessment WFL 11/06/2024 3:18 PM EDT Curtis mol, Mateusz, PT * LLE Assessment Question Answer Date [...] During Hospitalization Answer Date of Assessment Author zoroastrianism 11/04/2024 5:00 AM EDT Juan José Leslie RN * Repositioned Answer Date of Assessment Author Up in chair;Pillow support;Semi Mathew's 025 4:00 PM EDT Patricia Butt RN * Genitourinary Question Answer Date of Assessment Author Female Genitalia Intact 11/07/2024 7:21 AM EDT C Patricia tom RN Genitourinary (WDL) X 11/07/2024 7:21 AM ED T Patricia Butt RN Genitourinary Symptoms Inability to urinate 11/07/2024 7:21 AM EDT Patricia Butt RN Suprapubic Tenderness No 11/07/2024 7:21 AM EDT Patricia Butt RN * Patient Monitoring Question Answer Date of Assessment Author Frequency of Checks Twice per hour, standard 7:21 AM EDT Patricia Butt RN * Prior Function Question Answer Date of Assessment Author Prior Functional Mobility Independent without device 11/06/2024 3:18 PM EDT Mateusz Keller, PT Level of [place] Independent with A DLs and functional transfers;Independent [...] Answer Date of Assessment Author RUE Assessment [facility] 11/06/2024 3:18 PM EDT Mateusz Vasquez, PT * LUE Assessment Question Answer Date of Assessment Author LUE Assessment [facility] 11/06/2024 3:18 PM EDT Mateusz Vasquez, [...] Elevated Self regulated 11/07/2024 4:00 PM JUNT Particia Butt RN Heels/Feet Footrest of chair elevated 11/07/2024 7:21 AM EDT Patricia Butt RN Range of Motion Active;All extremities 7:21 AM Patricia Malone RN Anti-Embolism Devices Bilateral;Sequenti al compression devices, below knee 11/07/2024 7:21 AM Patricia Malone RN Anti-Embolism Intervention Off 11/07/2024 7:21 AM Patricia Malone RN Patient's mobility zone Zone 5 11/08/19 7:21 AM Patricia Malone RN Positioning Frequency Able to turn self 11/08/19 4:00 PM EDT Patricia Butt RN * Hygiene Question Answer Date of Assessment Author Linen change Total linen change 11/06/2024 8:00 AM EDT Fang Oreilly RN Skin Care Foam skin cleanser 11/07/2024 7:21 AM Patricia Malone RN Hygiene Costello care 11/07/2024 8:00 AM EDT Patricia Butt RN Oral Care Per self 11/07/2024 7:21 AM JUNT Patricia Butt RN Level of Assistance Minimal assist 11/07/2024 7:21 AM EDT Patricia Butt RN Is Patient Total Care? No 11/07/2024 7:21 AM Patricia Malone RN Incontinence Protective Devices Absorbent pad 11/07/2024 7:21 AM Patricia Malone RN CHG (Chlorhexidine Gluconate) Hygiene Wipes 11/07/2024 8:00 AM EDT Patricia Butt RN * Precautions Question Answer Date of Assessment Author Precautions Bleeding;Fall 11/07/2024 7:21 AM EDT Patricia Butt RN * Family/Significant Other Communication Question Answer [...] Right Ear Functional 10/30/2024 7:51 PM ED Maribel Quintero RN Hearing - Left Ear Functional 10/30/2024 [...] 10/30/2024 7:51 PM E Maribel Song RN HOT STICK MAN Evaluation Needed 2 10/30/2024 7:51 PM Maribel [...] Medication concern 10/17 6:40 AM EDT Christine Bakre RN Response No new orders 11/07/2024 6:40 AM EDT Christine Baker RN Notification Time [id number] 11/07/2024 6:4 0 AM EDT Christine Baker RN * Mcintosh Fall Risk Interventions Question Answer Date of Assessment Author Mcintosh Fall Risk Interventions Complete 11/06/2024 8:08 PM [...] this time. 11/06/2024 3:18 PM EDT Mateusz Keller, PT Prognosis Good 11/06/2024 3:18 PM EDT [...] 11/06/2024 3:18 PM EDT Mateusz Keller PT Static Standing-Level of Assistance Independent 11/06/2024 [...] Coordinated Yes 11/06 3:18 PM EDT Mateusz Keller PT * Postural Control Question Answer Date [...] tolerance. 11/06/2024 3 :18 PM EDT Mateusz Keller PT Patient Summary Patient is a 34 [...] elevated ~45 degrees 11/06/2024 3:18 PM EDT Karmol, Mateusz, PT Bed Mobility From 1 Supine 11/06/2024 [...] the chair for support without cues from press writer. 11/06/2024 3:18 PM EDT Mateusz Keller, PT Technique 1 Sit to stand;Stand t o sit 11/06/2024 3:18 PM EDT Matesuz Keller, PT Transfer Level of Assistance 1 [...] Home House 11/06/2024 3:18 PM EDT Mateusz Power, PT Home Layout Two level 11/06/2024 3:18 PM EDT Mateusz Power, PT Bathroom Shower/Tub Tub/shower unit 11/06/2024 3:18 PM EDT Mateusz Keller PT Bathroom Toilet Standard 11/06/2024 3:18 PM EDT Mateusz Ervin PT Bathroom Equipment None 11/06/2024 3:18 PM EDT Mateusz Keller PT Home Adaptive Equipment None 11/06/2024 3:18 P M EDT Mateusz Keller, PT Lives With Other (Comment) 11/06/2024 3:18 PM EDT Mateusz Ervin PT * PT Last Visit Question Answer Date [place] [address] 11/06/2024 3:18 PM EDT Mateusz Vasquez, PT [...] 7:21 A M EDT Patricia Butt RN [place] Coma Scale Score 15 11/07/2024 7:21 AM [...] RN Appetite Fair 11/07/2024 7:21 AM EDT Ptaricia Butt RN * Respiratory Interventions Question Answer [...] Skin Integrity Other (Comment) 11/07/2024 7:21 AM EDT Patricia Butt RN Skin Turgor Non-tenting 11/07/2024 7:21 AM EDT Patricia Butt RN Integumentary Additional Assessments Tattoos 11/07/2024 7:21 [...] Odor No odor 11/07/2024 4:06 PM Patricia Malone RN Urinary Incontinence No 11/07/2024 4:06 PM Patricia Reynaga RN * Audit Alcohol Screening Question Answer Date of Assessment Author How often do you have a drin k containing alcohol? 0 10/30/2024 7:53 PM Maribel Cheng R N How many standard drinks con [...] per shift? Yes 11/06/2024 8:08 PM EDT Christine Baker RN * Care Plan - Safety [...] as of this encounter Mental Status * [place] Coma Scale Question Answer Entry Date Author Best Eye Response Spontaneous 11/07/2024 7:21 AM EDT Patricia Butt RN Best Verbal Response Oriented 11/07/2024 7:21 AM E Patricia Tabor RN Best Motor Response Follows commands 11/07/2024 7:21 A M EDT Patricia Butt RN Kris Coma Scale Score 15 11/07/2024 7:21 AM [...] She presented as a direct admission from [facility] on 10/30/2024 with severe, sharp, left-sided chest pain radiating to the left arm, associated with dizziness, shortness of breath, nausea, and vomiting following her daily infusion therapy. At [place], troponin was 390 and chest X-ray showed mild fluid overload. She was started on heparin infusion and transferred for higher level of care. On arrival to [facility], troponin was 337, hemoglobin 9.7, [...] and recurrent obstruction Follow-up / Referrals: Cardiology: [facility], scheduled 11/14/2024 Urology: For Costello management [...] 11/20/2024 2:30 PM Delphine Du NP [facility] [place] [facility] 11/27/2024 2:15 PM Santa Wall CNP [facility] URO Second Fl 12/04/2024 10:00 [...] as: Tylenol ALBUTEROL INHL ergocalciferol 1.25 MG (89696 Units) capsule Commonly known as: Vitamin D-2 escitalopram 20 mg tablet Commonly known as: Lexapro fentaNYL 25 mcg/hr Commonly known as: Duragesic fentaNYL 12 mcg/hr Commonly known as: Duragesic HYDROcodone-acetaminophen 5-325 mg tablet Commonly known as: Tulare hydrocortisone 10 mg tablet Commonly known as: [...] Medications These medications were sent to [facility] [place] [address] [address] [place] [address] [place] [address], [facility] [address] aspirin 81 mg chewable tablet atorvastatin 80 mg tablet clopidogrel 75 mg tablet metoclopramide 10 mg tablet metoprolol succinate XL 25 mg 24 hr tablet Remington is allergic to codeine, nsaids (non-steroidal anti-inflammatory drug), and adhesive. Disposition: [place] [facility] [place] Discharge Condition: Stable Code Status: Full [...] was 43 minutes. Signed Mauricio Garcia MD [facility] Medicine 11/07/2024 2:48 PM CC: MD Evette [...] cholesterol);PO diet regular as tolerated. Intakes variable. [place], small meals. ONS. Dietary nutrition supplements BID (breakfast & dinner); Boost Glucose Control; Chocolate; 8 oz;Oral Dietary nutrition supplements Lunch; Gelatein; Deuel; 4 oz; Oral [id number] only Adult Cyclic 3-in-1 TPN: 2,300 mL, [...] 11/06/2024 10:30 AM EDT Infusion Center Hematology/Oncology [address] [place] [address] [place] [address] Hodges dressing and cap change;Labs as needed per patient 11/10/2024 2:15 PM EDT Appointment [facility] Endoscopy - ENDO [address] [place] [address] [place] [address] [place] [address] EGD and tube exchange failure to thrive nausea and vomiting 11/13/2024 10:45 AM EDT Infusion Center Hematology/Oncology [address] [place] [address] [place] [address] Hodges dressing and cap change;Labs as needed per patient 11/20/2024 9:15 AM EDT Infusion Center Hematology/Oncology [facility] [place] [address] Hodges dressing and cap change;Labs as needed per patient 11/27/2024 9:00 AM EDT Infusion Center Hematology/Oncology [facility] [place] [address] Hodges dressing and cap change;Labs as needed per patient 11/30/2024 8:30 AM EDT [facility] Gastroenterology [address] [place] [id number] Georgina Barkley MD [facility] [address] [address] HPN / VIRTUAL 12/04/2024 9:[address] [facility] Hematology/Oncology [address] [place] [address] [place] [address] Hodges dressing and cap change;Labs as needed [...] is sufficient. Do not apply antibiotic ointments, powdersor lotions. ?? Cover the site after 24 [...] Everywhere. * Indwelling Urinary Catheter Care Adult Wzce-dl-Nndk (Australian) documented in this encounter Medications at Time [...] 11/07/2024 5 ergocalciferol (Vitamin D-2) 1.25 MG (66890 Units) capsule Take 50,000 Units by mouth 1 (one) time per week. 5 fentaNYL (Duragesic) 12 mcg/hr Place 1 patch on the skin every 3rd (third) day. Takes 12 mcg and 25 mcg together every 3 days 5 HYDROcodone-acet aminophen (Tulare) 5-325 mg tablet Take 2 tablets by mouth every 4 (four) hours if needed for moderate-severe pain (4-10 pain score). 5 documented as of this encounter Progress Notes * Deepika Diallo - 11/07/2024 2:20 PM EDT discharge planning: to Home with [address] Care Patient came to this admission from their private residence in the community; they are reported to be managing their own TPN needs at home, with supplies being provided through [facility]. 1345 - Patient is discharging with a Costello, which is new this admission; Patient agreeable to [facility], no preference of provider, agreeable to mass referral - [facility] referral sent; awaiting replies [address] only accepting [facility] provider; added them to AVS 1512 AVS sent to [address], via [employer] system 1613 Patient had costello removed, still appropriate to have [facility] nursing; updated AVS sent to [address], [employer] system * Christina Rodriguez CNP - 11/07/2024 [...] to 0 out of 10. 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 Patient states that [...] Value Ventricular Rate 91 Atrial Rate 91 TN Interval 134 QRS DURATION 88 QT Interval 386 QTC CALCULATION(BAZETT) 474 P [place] 63 R-[place] 35 T Wave [place] 46 Impression Sinus rhythm with Premature supraventricular complexes Otherwise normal ECG When compared with ECG of 04-NOV-2024 13:40, Premature supraventricular complexes are now Present No results found for: CKTOTAL , CKMB , CKMBINDEX , TROPONINI Limited Echo (TTE) w/wo Limited Doppler, Color Flow, Imaging Agent, Strain, 3D, Bubble Study Result Date: 10/31/2024 1 1 [facility] Heart Station [address] [place] [address] [phone] (fax) Echocardiogram-[facility] Name: JUAN KONG Study Date: 10/31/2024 11:16 AM B/P: 106 mmHg/67 mmHg HR: 70 bpm Date of : 1990 [facility] Age: 34 year(s) Patient Room: [facility] Weight: 181 lb. Gender: Female Patient [...] minimal pericardial effusion. Procedure Staff Reading Group: [facility] Automatic Data Processing Planner: DAVID Kearney, RDCS Ordering Physician: [place] RITTER Wall Motion Scores -1 - hyperkinesia, 0 - not evaluated, 1 - normal, 2 - hypokinesia, 3 - akinesia, 4 - dyskinesia No nuclear medicine results found for the past 12 months Relevant Imaging Results ECG 12 lead Sinus rhythm with Premature supraventricular complexes Otherwise normal ECG When compared with ECG of 20-OCT-2025 13:40, Premature supraventricular complexes are now Present [...] for pt to see us in our [facility] on 11/14/24. Rest of care per [...] Kaye Craig, RD, Last Rate: 79.8 mL/hrat 11/07/24 1030, Rate Change at 11/07/24 1030 albuterol 90 mcg/actuation inhaler 2 puff, 2 puff, inhalation, q6h PRN, Debbie Luna DIRECTOR DERMATOLOGY aspirin EC tablet 81 mg, 81 mg, oral, Daily, Sid McQuillin, PA-C, 81 mg at 11/07/24 0900 clopidogrel (Plavix) tablet 75 mg, 75 mg, oral, Daily, Sid McQuchina, PA-C, 75 mg at 11/07/24 0900 glucose chewable tablet 24 g, 24 g, oral, q15 min PRN OR dextrose 50 % in water (D50W) syringe 25 g, 25 g, intravenous, q15 min PRN, Debibe Luna CNP, 25 g at 10/31/24 1228 diphenhydrAMINE (BENADryl) injection 50 mg, 50 mg, intravenous, q6h PRN, Josefina Mcgarry MD, 50 mg at 11/07/24 1201 enoxaparin (Lovenox) syringe 30 mg, 30 mg, subcutaneous, BID, HENNY Sanon-C, 30 mg at 11/07/24 0855 escitalopram (Lexapro) tablet 20 mg, 20 mg, oral, Daily, Rosa Willoughby PA-C, 20 mg at 11/07/24 0900 fentaNYL (Duragesic) 12 mcg/hr 1 patch, 1 patch, transdermal, q72h, 1 patch at 11/05/24 1739 AND fentaNYL (Duragesic) 25 mcg/hr 1 patch, 1 patch, transdermal, q72h, Timothy Dee MD, 1 patch at 11/05/24 1739 HYDROcodone-acetaminophen ([place]are) 5-325 mg per tablet 1 tablet, 1 tablet, oral, q4h PRN, 1 tablet at 11/03/24 1011 OR HYDROcodone-acetaminophen ([place]) 5- 325 mg per tablet 2 tablet, [...] PRN, Rosa Willoughby PA-C, 1 tablet at 11/06/24 0933 [CANCELED] Insert peripheral IV, , , Once AND [CANCELED] Saline lock IV, , , Once AND sodium chloride flush 10 mL, 10 mL, intravenous, q8h PRN, Debbie Luna, DIRECTOR DERMATOLOGY sucralfate (Carafate) tablet 1 g, 1 g, [...] 200 mg, intramuscular, q6h PRN, Debbie Luna DIRECTOR DERMATOLOGY, 200 mg at 11/03/24 0018 verapamil (Calan) tablet 40 mg, 40 mg, oral, q8h TANIA, Marie Alejandro MD, 40 mg at 11/07/24 0657 * Michael Dunn MD - 11/07/2024 6:36 AM EDT [facility] Vascular Surgery DAILY PROGRESS NOTE Subjective Patient [...] on TPN presents a direct admission from [facility] with chief complaint of chest pain. She [...] infiltrated over the right femoral artery. A 5-Citizen Of [place] Terumo sheath was placed in right femoral [...] was maintained at >250 seconds. A 5 Citizen [place] Cordis XB 3.0 guide was engaged to the left main. I decided to proceed with IVUS. I then advanced a Runthrough wire to the distal left anterior descending. Next, I advanced a Celsias IVUS catheter. IVUS imaging was performed and [...] infiltrated over the right femoral artery. A 6-Citizen Of [place] sheath was placed in right femoral artery. Coronary angiography was performed with a JL4 and then repeated after IC nitroglycerin 50 mcg x 2. At this time, it was apparent that the LAD had a moderate stenosis and IVUS and iFR were performed. Heparin anticoagulation was used for this procedure. ACT was maintained at >250 seconds. A 6 Citizen Of [place] xb3 was engaged to the [place]. I [...] 1800, M-F. For urgent concerns, please call [phone], or ask the escalator operator to connect you to the on-faculty i on call medical assistant. For after-hours concerns, please page [phone], or ask the escalator operator to connect you to the on-faculty i on call medical assistant. Cosigned by Dominic Chappell DO at 11/07/2024 [...] Level of Function Prior Function Level of [place]: Independent with ADLs and functional transfers, Independent [...] the chair for support without cues from press writer. 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 No routine or PRN bowel [...] PO diet regular as tolerated. Intakes variable. [place], small meals. ONS. Dextrose 200 g AA [...] Once Comments: Please send Old Fashioned Hot [place] entree, with a side of green beans; [...] 11/02/24223411/01/24 1519 Dietary nutrition supplements Lunch; Gelatein; Deuel; 4 oz; Oral Until discontinued Comments: When diet advances Question Answer Comment Deliver with Lunch Select supplement: Gelatein Flavor Deuel Strength: 4 oz Route Oral 11/01/24 15111/01/24 [...] ideal body weight (59.3 kg) Calorie needs: 5077-7930 kcals/day based on 25-30 kcal/kg Protein needs: [...] of Nutrition and Dietetics (AND) and the [place] Society of Enteral and Parenteral Nutrition (ASPEN). Treatment Plan: HPN schedule (MWF) Minor adjustments made based on current labs with plan to titrate to home order. Na Phos 30->20 mmol Continue current diet, snacks & ONS Goals: Advance TF to goal rate Weight maintenance Maintain visceral protein Nutrition-related labs (magnesium, phosphorus, BMP) wnl To reach the Clinical Dietitian, please utilize OpenSky chat Wednesday-Wednesday from 8AM-4PM or call extension [phone]. For weekends (Wednesday-Wednesday) and hols, the Clinical Dietitian can be reached via pager [phone]) from 9AM-3PM. The Clinical Nutrition Department is unable to respond to OpenSky chat messages on Sundays and s. [1] Allergies Allergen Reactions Codeine Nausea And Vomiting Nsaids (Non-Steroidal Anti-Inflammatory Drug) GI intolerance Adhesive Rash * Eduarda Bravo PA-C - 11/06/2024 9:03 AM EDT Images from the original note were not included. [facility] Surgical Intensive Care Unit Progress Note Chief [...] Value Ventricular Rate 74 Atrial Rate 74 TN Interval 138 QRS DURATION 84 QT Interval 454 QTC CALCULATION(BAZETT) 503 P [place] 54 R-[place] 41 T Wave [place] 77 Impression Normal sinus rhythm T abnormalities consider high lateral ischemia Mild ST elevation in V2 and V3 , consider acute septal injury Abnormal ECG Confirmed by Griffin Diaz ([id number]) on 11/02/2024 10:58:13 PM Assessment TThe patient is a 34 y.o. female who presented with an NSTEMI, was taken to the medical laboratory manager x2 and hasa an expanding right groin [...] (placed patch every 72hours). Resume home PRN Tul[place] 5-325 Q4H, PRN 650 mg Q8H -On [...] to 0 out of 10. 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 Patient states that [...] Value Ventricular Rate 100 Atrial Rate 100 TN Interval 132 QRS DURATION 94 QT Interval 382 QTC CALCULATION(BAZETT) 492 P [place] 60 R-[place] 34 T Wave [place] 58 Impression Normal sinus rhythm Statement not found (1146) Abnormal ECG When compared with ECG of 02-NOV-2024 13:02, No significant change was found Confirmed by Erlin Geller (80) on 11/05/2024 12:04:52 AM No results found for: CKTOTAL , CKMB , CKMBINDEX , TROPONINI Limited Echo (TTE) w/wo Limited Doppler, Color Flow, Imaging Agent, Strain, 3D, Bubble Study Result Date: 10/31/2024 1 1 [facility] Heart Station [address] [address] [phone] (fax) Echocardiogram-[facility] Name: JUAN KONG Study Date: 10/31/2024 11:16 AM B/P: 106 mmHg/67 mmHg HR: 70 bpm Date of : 1990 [facility] Age: 34 year(s) Patient Room: [facility] Weight: 181 lb. Gender: Female Patient [...] minimal pericardial effusion. Procedure Staff Reading Group: [facility] Automatic Data Processing Planner: DAVID Kearney, RDCS Ordering Physician: [place] RITTER [...] Pena DO Internal Medicine Resident, PGY-2 [facility] 8:20 AM 11/06/24 [1] Current Facility-Administered Medications: acetaminophen (Tylenol) tablet 650 mg, 650 mg, oral, q8h PRN, Sid Haskinsillin, PA-C, 650 mg at 11/05/24 1633 albuterol 90 mcg/actuation inhaler 2 puff, 2 puff, inhalation, q6h PRN, Debbie Luna DIRECTOR DERMATOLOGY aspirin EC tablet 81 mg, 81 mg, [...] 30 mg, 30 mg, subcutaneous, BID, HENNY Sanon-C, 30 mg at 11/05/24 2336 escitalopram (Lexapro) [...] Dee MD, 25mcg at 11/06/24 0700 HYDROcodone-acetaminophen (Tulare) 5-325 mg per tablet 1 tablet, 1 tablet, oral, q4h PRN, 1 tablet at 11/03/24 1011 OR HYDROcodone-acetaminophen ([place]) 5- 325 mg per tablet 2 tablet, [...] 200 mg, intramuscular, q6h PRN, Debbie Luna, DIRECTOR DERMATOLOGY, 200 mg at 11/03/24 0018 verapamil (Calan) [...] combination Sebastian Peña MD, ScM, MSc Cardiac Import And Export Clerk Email: [email or web address] * Anna Etienne MD - 11/06/2024 7:38 AM EDT Images from the original note were not included. [facility] Vascular Surgery DAILY PROGRESS NOTE Subjective Patient [...] days Lab Units 11/06/24 0550 11/05/24 0348 11/04/24201611/04/24 1338 11/04/24 0505 SODIUM mmol/L 139 139 [...] Geller (80) on 11/05/2024 12:04:52 AM Assessment/Plan Jaun Kong is a 34 y.o. White female [...] MD General Surgery PGY-4 For non-urgent questions, EchoSign Chat may be used 0600 - 1800, M-F. For urgent concerns, please call [phone], or ask the escalator operator to connect you to the on-faculty i on call medical assistant. For after-hours concerns, please page [phone], or ask the escalator operator to connect you to the on-faculty i on call medical assistant. Cosigned by Dominic Chappell DO at 11/06/2024 1:53 PM EDT * Mikayla Jennings PA-C - 11/05/2024 2:14 PM EDT Images from the original note were not included. [facility] Vascular Surgery DAILY PROGRESS NOTE Subjective Patient [...] PA-C Vasular Surgery and Wound Care x [phone] For non-urgent questions, EchoSign Chat may be used 0600 - 1800, M-F. For urgent concerns, please call [phone], or ask the escalator operator to connect you to the on-faculty i on call medical assistant. For after-hours concerns, please page [phone], or ask the escalator operator to connect you to the on-faculty i on call medical assistant. * Christina Rodriguez CNP - 11/05/2024 11:00 [...] to 0 out of 10. 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 Patient states that [...] Value Ventricular Rate 100 Atrial Rate 100 TN Interval 132 QRS DURATION 94 QT Interval 382 QTC CALCULATION(BAZETT) 492 P [place] 60 R-[place] 34 T Wave [place] 58 Impression Normal sinus rhythm Statement not found (1146) Abnormal ECG When compared with ECG of 02-NOV-2024 13:02, No significant change was found Confirmed by Erlin Geller (80) on 11/05/2024 12:04:52 AM No results found for: CKTOTAL , CKMB , CKMBINDEX , TROPONINI Limited Echo (TTE) w/wo Limited Doppler, Color Flow, Imaging Agent, Strain, 3D, Bubble Study Result Date: 10/31/2024 1 1 [facility] Heart Station [address] [phone] (fax) Echocardiogram-[facility] Name: JUAN KONG Study Date: 10/31/2024 11:16 AM B/P: 106 mmHg/67 mmHg HR: 70 bpm Date of : 1990 [facility]. Age: 34 year(s) [...] minimal pericardial effusion. Procedure Staff Reading Group: [facility] Automatic Data Processing Planner: DAVID Kearney, RDCS Ordering Physician: KY RITTER [...] along Discussed plan with pt, primary RN, rn new graduate Dr. Aeljandro and grinder dresser Dr. Altamirano. Christina Rodriguez, LEASING SPECIALIST-DIRECTOR DERMATOLOGY [facility] [1] Current Facility-Administered Medications: acetaminophen (Tylenol) tablet 650 mg, 650 mg, oral, q8h PRN, Sid Cruz PA-C Adult Cyclic 3-in-1 TPN, 2,300 mL, intravenous, Cyclic TPN, Tomasa Franks MD, Stopped at 11/05/24 1440 albuterol 90 mcg/actuation inhaler 2 puff, 2 puff, inhalation, q6h PRN, Debbie Luna CNP aspirin EC tablet 81 mg, 81 mg, oral, Daily, HENNY Sanon-C, 81 mg at 11/05/24 1021 atorvastatin (Lipitor) tablet 80 mg, 80 mg, oral, Nightly, Rosa Willoughby PA-C, 80 mg at 11/04/24 2244 clopidogrel (Plavix) tablet 75 mg, 75 mg, oral, Daily, HENNY Sanon-C, 75 mg at 11/05/24 1021 glucose chewable [...] Dee MD, 25mcg at 11/05/24 1446 HYDROcodone-acetaminophen (T[place]are) 5-325 mg per tablet 1 tablet, 1 tablet, oral, q4h PRN, 1 tablet at 11/03/24 1011 OR HYDROcodone-acetaminophen ([place]) 5- 325 mg per tablet 2 tablet, 2 tablet, oral, q4h PRN, Ky Ritter MD, 2 tablet at 11/05/24 1138 hydrocortisone (Cortef) tablet 10 mg, 10 mg, oral, Daily, Debbie Luna DIRECTOR DERMATOLOGY, 10 mg at 11/05/24 1022 HYDROmorphone (Dilaudid) injection 0.2 mg, 0.2 mg, intravenous, q3h PRN, Sid Cruz PA-C, 0.2 mg at 11/05/24 0638 hydrOXYzine pamoate (Vistaril) capsule 50 mg, 50 mg, oral, Nightly PRN, Debbie Luna, DIRECTOR DERMATOLOGY insulin lispro (HumaLOG) injection 0-5 Units, 0-5 [...] 5 mg, oral, Nightly PRN, Debbie Luna, DIRECTOR DERMATOLOGY methocarbamol (Robaxin) tablet 750 mg, 750 mg, oral, 4x daily, Rosa Willoughby PA-C, 750 mg at 11/05/24 1356 metoclopramide (Reglan) tablet 10 mg, 10 mg, oral, Daily PRN, Debbie Luna, DIRECTOR DERMATOLOGY, 10 mg at 11/04/24 1302 metoprolol succinate [...] injection 10 mg, 10 mg, intravenous, Once, Jaent Soto MD prochlorperazine (Compazine) injection 5 mg, [...] MD, 40 mg at 11/05/24 1355 * Tomasa Disla MD - 11/05/2024 7:44 AM EDT Images from the original note were not included. [facility] Surgical Intensive Care Unit Progress Note Chief [...] thrive who presented as a transfer from [place]. She had an NSTEMI and underwent a [...] able to answer all questions. Interval History: 11/05: Patient was examined at [...] in place at R groin site. Objective I/O last 3 completed shifts: In: 7216.8 [...] normal. Behavior: Behavior normal. Labs: Recent Results Recent Results (from the [...] Value Ventricular Rate 74 Atrial Rate 74 TN Interval 138 QRS DURATION 84 QT Interval 454 QTC CALCULATION(BAZETT) 503 P [place] 54 R-[place] 41 T Wave [place] 77 Impression Normal sinus rhythm T abnormalities consider high lateral ischemia Mild ST elevation in V2 and V3 , consider acute septal injury Abnormal ECG Confirmed by Griffin Diaz (102) on 11/02/2024 10:58:13 PM Assessment TThe patient is a 34 y.o. female who presented with an NSTEMI, was taken to the medical laboratory manager x2 and hasa an expanding right groin [...] (placed patch every 72hours). Resume home PRN Tul[place] 5-325 Q4H, PRN 650 mg Q8H -On [...] -Continue home metoprolol and Lipitor -DAPT restarted - Monitor H/H closely - Vascular surgery consulted for right groin hematoma post cardiac catheterization on 11/02, Recommendations: - Patient taken to the OR on 11/02 for right groin hematoma evacuation pseudoaneurysm repair -Q4H neurovascular checks - Monitor H/H closely - Ok for DVT ppx 11/03 Respiratory: No acute issues -Incentive spirometry every 1 hour while awake FEN/GI: Gastroparesis, protein calorie malnutrition -Diet: Heart healthy diet, TPN supplementation Wednesday/Wednesday/Wednesday -Patient requires TPN supplementation given history of gastroparesis and protein calorie malnutrition via right subclavian tunneled CVC -Nutrition consulted for resuming TPN -GI: Protonix -Bowel regimen: As needed Kadie-Colace : Urinary retention - Patient reports chronic urinary retention at home requiring prior costello catheter placement - Strict Is and Os- urine 2.4ml.kg.min, -1.1L since admission MSK: Right Groin Hematoma -Activity: Up as tolerated with assistance, fall precautions -Offloading while in bed -Management of right groin hematoma per vascular surgery as above Heme/ID: -Hb: 8.6<9<7.8<8<8.3<9<9.5 -repeat H&H at 9 -Patient received 1 unit PRBC yesterday -Abx: Not indicated Endo: Type 2 DM -Monitor blood glucose AC/HS -ISS Lines: -PIV - Right groin GONSALO drain -Tunnel R subclavian CVC Prophylaxis: -GI: Protonix -Bowel regimen: Kadie-Colace as needed -DVT: SCDs, Ok for chemical DVT ppx per vascular, start Lovenox 30 mg BID Other: -CODE STATUS: Full Code -Restart home meds once reconciled By using the attestations below, the signing [...] be an additional personal documentation from me. * Mikayla Jennings PA-C - 11/04/2024 11:54 AM EDT Images from the original note were not included. [facility] Vascular Surgery DAILY PROGRESS NOTE Subjective Patient [...] 4.4 4.9 4.6 4.0 CO2 mmol/L 28 22 20* 27 26 BUN mg/dL 9 6* [...] infiltrated over the right femoral artery. A 6-Citizen [place] sheath was placed in right femoral artery. Coronary angiography was performed with a JL4 and then repeated after IC nitroglycerin 50 mcg x 2. At this time, it was apparent that the LAD had a moderate stenosis and IVUS and iFR were performed. Heparin anticoagulation was used for this procedure. ACT was maintained at >250 seconds. A 6 Citizen [place] xb3 was engaged to the [place]. I [...] informed consent. she was brought to the medical laboratory manager in a fasting state. The left wrist area was prepped and draped in usual fashion. Micropuncture technique was used for access in the radial artery. A 5-Citizen [place] x 11 cm sheath was placed. Verapamil was given through the sheath, and heparin was administered intravenously. A 5 Citizen [place] JR4 diagnostic catheter was advanced and this [...] catheter was then downsized to a 4 [place] JR4 diagnostic catheter however this also was not able to engage the right coronary artery. Catheter was exchanged to a JR4 diagnostic catheter which could not engage the left coronary artery. Catheter was exchanged to a 4 Citizen [place] JL 3.5 diagnostic catheter which eventually was able to engage the left coronary artery. Angiography was performed in multiple views. Catheter was exchanged over the wire to a 4 [place] 3DRC catheter. Multiple attempts were made to [...] PA-C Vasular Surgery and Wound Care x [phone] For non-urgent questions, EchoSign Chat may be used 0600 - 1800, M-F. For urgent concerns, please call [phone], or ask the escalator operator to connect you to the on-faculty i on call medical assistant. For after-hours concerns, please page [phone], or ask the escalator operator to connect you to the on-faculty i on call medical assistant. * Marie Alejandro MD - 11/04/2024 8:53 [...] to 0 out of 10. 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 Patient states that [...] Value Ventricular Rate 74 Atrial Rate 74 TN Interval 138 QRS DURATION 84 QT Interval 454 QTC CALCULATION(BAZETT) 503 P [place] 54 R-[place] 41 T Wave [place] 77 Impression Normal sinus rhythm T abnormalities [...] Bubble Study Result Date: 10/31/2024 1 1 [facility] Heart Station [address] [place] [address] [phone] (fax) Echocardiogram-[facility] Name: JUAN KONG Study Date: 10/31/2024 11:16 AM B/P: 106 mmHg/67 mmHg HR: 70 bpm Date of : 1990 [facility]. Age: 34 year(s) [...] minimal pericardial effusion. Procedure Staff Reading Group: [facility] Automatic Data Processing Planner: DAVID Kearney, RDCS Ordering Physician: KY RITTER [...] infiltrated over the right femoral artery. A 6-Citizen [place] sheath was placed in right femoral artery. Coronary angiography was performed with a JL4 and then repeated after IC nitroglycerin 50 mcg x 2. At this time, it was apparent that the LAD had a moderate stenosis and IVUS and iFR were performed. Heparin anticoagulation was used for this procedure. ACT was maintained at >250 seconds. A 6 [place] xb3 was engaged to the [place]. I [...] informed consent. she was brought to the medical laboratory manager in a fasting state. The left wrist area was prepped and draped in usual fashion. Micropuncture technique was used for access in the radial artery. A 5-Citizen [place] x 11 cm sheath was placed. Verapamil was given through the sheath, and heparin was administered intravenously. A 5 Citizen [place] JR4 diagnostic catheter was advanced and this [...] catheter was then downsized to a 4 [place] JR4 diagnostic catheter however this also was not able to engage the right coronary artery. Catheter was exchanged to a JR4 diagnostic catheter which could not engage the left coronary artery. Catheter was exchanged to a 4 Citizen [place] JL 3.5 diagnostic catheter which eventually was able to engage the left coronary artery. Angiography was performed in multiple views. Catheter was exchanged over the wire to a 4 [place] 3DRC catheter. Multiple attempts were made to [...] least in part, completed using a voice roofing supervisor system. Every effort was made to ensure accuracy. However, inadvertent computerized roofing supervisor errors may be present. Lisa Pena DO Internal Medicine Resident, PGY-2 [facility] 8:53 AM 11/04/24 Addendum Pt was reported to have chest pain and diaphoresis. EKG unremarkable, in fact st elevations are no longer present. Will add verapamil and recommended blood transfusions given hemoglobin < 8 Marie Alejandro MD PGY-6 [facility]Ste[employer] [facility] Pager # [phone] [1] Current Facility-Administered Medications: acetaminophen (Tylenol) tablet 650 mg, 650 mg, oral, q8h PRN, Sid McQuillin, PA-C Adult Cyclic 3-in-1 TPN, 2,300 mL, intravenous, Cyclic TPN, Kaye [place], RD, Last Rate: 159 mL/hr at 11/04/24 [...] tablet 75 mg, 75 mg, oral, Daily, HENNY Sanon-C, 75 mg at 11/03/24 1319 glucose chewable [...] PA-C, 1 patch at 11/03/24 1128 HYDROcodone-acetaminophen ([place]are) 5-325 mg per tablet 1 tablet, 1 tablet, oral, q4h PRN, 1 tablet at 11/03/24 1011 OR HYDROcodone-acetaminophen ([place]) 5- 325 mg per tablet 2 tablet, 2 tablet, oral, q4h PRN, Ky Ritter MD, 2 tablet at 11/04/24 0336 hydrocortisone (Cortef) tablet 10 mg, 10 mg, oral, Daily, Debbie Luna CNP, 10 mg at 11/03/24 1014 HYDROmorphone (Dilaudid) injection 0.2 mg, 0.2 mg, intravenous, q3h PRN, HENNY Sanon-[place], 0.2 mg at 11/04/24 0512 hydrOXYzine pamoate (Vistaril) capsule 50 mg, 50 mg, oral, Nightly PRN, Debbie Luna, DIRECTOR DERMATOLOGY insulin lispro (HumaLOG) injection 0-5 Units, 0-5 [...] 5 mg, oral, Nightly PRN, Debbie Luna, DIRECTOR DERMATOLOGY methocarbamol (Robaxin) tablet 750 mg, 750 mg, oral, 4x daily, Rosa Willoughby PA-C, 750 mg at 11/03/24 2202 metoclopramide (Reglan) tablet 10 mg, 10 mg, oral, Daily PRN, Debbie Cheryl, DIRECTOR DERMATOLOGY, 10 mg at 11/03/24 0840 metoprolol succinate [...] 40 mEq, 40 mEq, oral, q2h PRN, HENNY Hendrickson-[place] potassium chloride IVPB 10 [...] 10 mL, intravenous, q8h PRN, Debbie Pirkl, DIRECTOR DERMATOLOGY sucralfate (Carafate) tablet 1 g, 1 g, oral, Before meals & nightly, Rosa Willuoghby PA-C, 1 g at 11/04/24 0512 topiramate (Topamax) tablet 100 mg, 100 mg, oral, BID, ILSA HendricksonC, 100 mg at 11/03/24 2211 traMADol (Ultram) tablet 50 mg, 50 mg, oral, q6h PRN, Debbie Pirkl, DIRECTOR DERMATOLOGY, 50 mg at 11/03/24 1633 traZODone (Desyrel) tablet 100 mg, 100 mg, oral, Nightly, LISA HendricksonC, 100 mg at 11/03/24 2202 trimethobenzamide (Tigan) injection 200 mg, 200 mg, intramuscular, q6h PRN, Debbie Pirkl, DIRECTOR DERMATOLOGY, 200 mg at 11/03/24 0018 Cosigned by Salty Hyatt MD at 11/05/2024 5:02 PM EDT Associated attestation - Salty Hyatt MD - 11/05/2024 5:02 PM EDT Agree with the assessment and plan as documented by the rn new graduate * Tomasa Disla MD - 11/04/2024 7:36 AM EDT Images from the original note were not included. [facility] Surgical Intensive Care Unit Progress Note Chief [...] thrive who presented as a transfer from [place]. She had an NSTEMI and underwent a [...] able to answer all questions. Interval History: 11/04: Patient was examined at bedside, no [...] in place at R groin site. Objective I/O last 3 completed shifts: In: 7216.8 [...] Dressing in clean, dry, intact. Mildly TTP. GONSAOL drain to right groin site with serosanguinous [...] normal. Behavior: Behavior normal. Labs: Recent Results Recent Results (from the [...] Value Ventricular Rate 74 Atrial Rate 74 TN Interval 138 QRS DURATION 84 QT Interval 454 QTC CALCULATION(BAZETT) 503 P [place] 54 R-[place] 41 T Wave [place] 77 Impression Normal sinus rhythm T abnormalities consider high lateral ischemia Mild ST elevation in V2 and V3 , consider acute septal injury Abnormal ECG Confirmed by Griffin Diaz (102) on 11/02/2024 10:58:13 PM Assessment TThe patient is a 34 y.o. female who presented with an NSTEMI, was taken to the medical laboratory manager x2 and hasa an expanding right groin [...] (placed patch every 72hours). Resume home PRN Tul[place] 5-325 Q4H, PRN 650 mg Q8H -On home Topamax 100 mg twice daily CV: Home meds restarted: Toprol 12.5,aspirin, plavix, lipitor [...] - Ok for DVT ppx 11/03 Respiratory: -Incentive spirometry every 1 hour while awake FEN/GI: Gastroparesis, protein calorie malnutrition -Diet: Heart healthy diet, TPN supplementation Wednesday/Wednesday/Wednesday -Patient requires TPN supplementation given history of gastroparesis and protein calorie malnutrition via right subclavian tunneled CVC -Nutrition consulted for resuming TPN -GI: Protonix -Bowel regimen: As needed Kadie-Colace : Urinary retention - Patient reports chronic urinary retention at home requiring prior costello catheter placement - Consult urology to place costello catheter and for difficult straight catheterization - Strict Is and Os- urine 1.1ml.kg.min, +67ml since admission MSK: Right Groin Hematoma -Activity: Up as tolerated with assistance, fall precautions -Offloading while in bed -Management of right groin hematoma per vascular surgery as above Heme/ID: -Hb: 8<8.3<9<9.5 -q4H&H -Patient received 2 unit PRBC in OR -Abx: Not indicated Endo: Type 2 DM -Monitor blood glucose AC/HS -ISS Lines: -PIV - Right groin GONSALO drain -Tunnel R subclavian CVC Prophylaxis: -GI: Protonix -Bowel regimen: Kadie-Colace as needed -DVT: SCDs, Ok for chemical DVT ppx per vascular, start Lovenox 30 mg BID Other: -CODE STATUS: Full Code -Restart home meds once reconciled Dispo: - Remain in SICU today per vascular By using the attestations below, the signing [...] be an additional personal documentation from me. * Michael Dunn MD - 11/03/2024 6:19 PM EDT Images from the original note were not included. [facility] Vascular Surgery DAILY PROGRESS NOTE Subjective Patient [...] 11/03/24 0007 11/01/24 1010 10/31/24 0627 10/30/24 1911 SODIUM mmol/L 136 135* 137 140 139 [...] infiltrated over the right femoral artery. A 6-Citizen [place] sheath was placed in right femoral artery. Coronary angiography was performed with a JL4 and then repeated after IC nitroglycerin 50 mcg x 2. At this time, it was apparent that the LAD had a moderate stenosis and IVUS and iFR were performed. Heparin anticoagulation was used for this procedure. ACT was maintained at >250 seconds. A 6 Citizen [place] xb3 was engaged to the [place]. I [...] informed consent. she was brought to the medical laboratory manager in a fasting state. The left wrist area was prepped and draped in usual fashion. Micropuncture technique was used for access in the radial artery. A 5-Citizen [place] x 11 cm sheath was placed. Verapamil was given through the sheath, and heparin was administered intravenously. A 5 Citizen [place] JR4 diagnostic catheter was advanced and this [...] catheter was then downsized to a 4 [place] JR4 diagnostic catheter however this also was not able to engage the right coronary artery. Catheter was exchanged to a JR4 diagnostic catheter which could not engage the left coronary artery. Catheter was exchanged to a 4 Citizen [place] JL 3.5 diagnostic catheter which eventually was able to engage the left coronary artery. Angiography was performed in multiple views. Catheter was exchanged over the wire to a 4 [place] 3DRC catheter. Multiple attempts were made to [...] PGY-1 Vascular Surgery Service For non-urgent questions, EchoSign Chat may be used 0600 - 1800, M-F. For urgent concerns, please call [phone], or ask the escalator operator to connect you to the on-faculty i on call medical assistant. For after-hours concerns, please page [phone], or ask the escalator operator to connect you to the on-faculty i on call medical assistant. Cosigned by Dominic Chappell DO at 11/06/2024 [...] to 0 out of 10. 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 Patient states that the pain started after her qD infusions for gastroparesis and characterizes as sharp and radiating to her left arm, 10 out of 10. She states that the CP was associated with dizziness, shortness of breath, nausea, and vomiting. At this time, she states that she has been receiving LR infusions w/ Benadryl and Compazine daily for [...] -- -- 85 -- 99 % -- 11/02/242351 -- -- -- 89 17 -- -- 11/02/24 2328 118/61 -- -- 81 11 -- -- 11/02/24 2314 126/69 -- -- 87 13 -- -- 11/02/24 2258 125/69 -- -- 80 15 -- -- 11/02/245 125/61 -- -- 80 15 -- -- 11/02/249 128/57 -- -- 88 15 -- -- 11/02/24 2214 136/66 36.2 ??C (97.2 ??F) Temporal 90 15 -- -- 11/02/242027 118/77 36.5 ??C (97.7 ??F) Temporal 105 21 100 % -- 11/02/242019 77/56 -- -- (!) 117 26 100 % -- 11/02/242014 89/74 -- -- (!) 120 18 100 % -- 11/02/241999 (!) 110/94 -- -- (!) 118 13 99 % -- 11/02/241944 103/59 -- -- 102 14 100 % -- 11/02/241929 93/57 -- -- 96 16 98 % -- 11/02/241926 (!) 122/95 -- -- 94 20 98 % -- 11/02/241923 114/59 -- -- 94 20 -- -- 11/02/241920 120/79 -- -- 101 21 -- -- 11/02/241919 116/87 -- -- 100 19 99 % -- 11/02/241914 102/79 -- -- 89 15 -- -- 11/02/241911 107/68 -- -- 99 15 100 % -- 11/02/241908 106/68 -- -- 97 14 -- -- 11/02/241905 112/80 -- -- 90 21 -- -- 11/02/241902 114/75 -- -- 94 22 100 % -- 11/02/241899 116/77 -- -- 95 (!) 27 100 % -- 11/02/241858 109/81 -- -- 100 15 100 % -- 11/02/241847 99/78 -- -- 85 19 100 % -- 11/02/241844 100/74 -- -- 87 23 -- -- 11/02/241841 104/63 -- -- 88 (!) 9 100 % -- 11/02/241839 92/59 -- -- 83 15 100 % -- 11/02/241829 103/56 -- -- 90 14 100 % -- 11/02/241814 101/66 -- -- 81 14 100 % -- 11/02/24 1801 100/56 -- -- 82 12 100 % -- 11/02/24 175 109/69 -- -- 68 12 100 % -- 11/02/241750 108/68 -- -- 72 13 98 % -- 11/02/241747 105/67 -- -- 68 15 -- -- 11/02/245 106/70 -- -- 66 13 -- -- 11/02/241741 115/87 -- -- 71 13 -- -- 11/02/249 108/81 -- -- 75 16 -- -- 11/02/24 1736 109/75 -- -- 70 14 -- -- 11/02/24 1733 104/80 -- -- 69 12 -- -- 11/02/24 1730 111/53 -- -- 85 14 -- -- 11/02/24 1727 113/74 -- -- 79 11 100 % -- 11/02/24 1724 108/74 -- -- 69 (!) 7 100 % -- 11/02/241720 120/84 -- -- 67 14 100 % [...] Value Ventricular Rate 74 Atrial Rate 74 TN Interval 138 QRS DURATION 84 QT Interval 454 QTC CALCULATION(BAZETT) 503 P [place] 54 R-[place] 41 T Wave [place] 77 Impression Normal sinus rhythm T abnormalities [...] Bubble Study Result Date: 10/31/2024 1 1 [facility] Heart Station [address]. [place], [place] [id number] (fax) Echocardiogram-[facility] Name: JUAN KONG Study Date: 10/31/2024 11:16 AM B/P: 106 mmHg/67 mmHg HR: 70 bpm Date of : 1990 [facility] Age: 34 year(s) [...] minimal pericardial effusion. Procedure Staff Reading Group: [facility] Automatic Data Processing Planner: DAVID Kearney, RDCS Ordering Physician: KY RITTER [...] infiltrated over the right femoral artery. A 6-Citizen [place] sheath was placed in right femoral artery. Coronary angiography was performed with a JL4 and then repeated after IC nitroglycerin 50 mcg x 2. At this time, it was apparent that the LAD had a moderate stenosis and IVUS and iFR were performed. Heparin anticoagulation was used for this procedure. ACT was maintained at >250 seconds. A 6 Citizen [place] xb3 was engaged to the [place]. I then advanced a 0.014 guidewire to the distal left anterior descending. IVUS imaging was performed with a [employer]visors[employer] catheter after additional IC nitroglycerin and IV [...] informed consent. she was brought to the medical laboratory manager in a fasting state. The left wrist area was prepped and draped in usual fashion. Micropuncture technique was used for access in the radial artery. A 5-Citizen [place] x 11 cm sheath was placed. Verapamil was given through the sheath, and heparin was administered intravenously. A 5 Citizen [place] JR4 diagnostic catheter was advanced and this [...] catheter was then downsized to a 4 [place] JR4 diagnostic catheter however this also was not able to engage the right coronary artery. Catheter was exchanged to a JR4 diagnostic catheter which could not engage the left coronary artery. Catheter was exchanged to a 4 Citizen [place] JL 3.5 diagnostic catheter which eventually was able to engage the left coronary artery. Angiography was performed in multiple views. Catheter was exchanged over the wire to a 4 [place] 3DRC catheter. Multiple attempts were made to [...] least in part, completed using a voice roofing supervisor system. Every effort was made to ensure accuracy. However, inadvertent computerized roofing supervisor errors may be present. Lisa Pena DO Internal Medicine Resident, PGY-2 [facility] 11:18 AM 11/03/24 [1] Current Facility-Administered Medications: acetaminophen (Tylenol) tablet 650 mg, 650 mg, oral, q8h PRN, Sid Cruz PA-C Adult Cyclic 3-in-1 TPN, 2,200 mL, intravenous, Cyclic TPN, Kaye Craig RD albuterol 90 mcg/actuation inhaler 2 puff, [...] patch, transdermal, q72h, Rosa Willoughby PA-C HYDROcodone-acetaminophen (Tulare) 5-325 mg per tablet 1 tablet, 1 tablet, oral, q4h PRN, 1 tablet at 11/03/24 1011 OR HYDROcodone-acetaminophen (Tulare) 5- 325 mg per tablet 2 tablet, [...] 5 mg, oral, Nightly PRN, Debbie Luna, DIRECTOR DERMATOLOGY methocarbamol (Robaxin) tablet 750 mg, 750 mg, [...] 10 mL, intravenous, q8h PRN, Debbie Pirkl, DIRECTOR DERMATOLOGY sucralfate (Carafate) tablet 1 g, 1 g, oral, Before meals & nightly, Rosa Willoughby PA-C, 1 g at 11/03/24 1013 topiramate (Topamax) tablet 100 mg, 100 mg, oral, BID, Rosa Willoughby PA-C, 100 mg at 11/03/24 1013 traMADol (Ultram) tablet 50 mg, 50 mg, oral, q6h PRN, Debbie Pirkl, DIRECTOR DERMATOLOGY, 50 mg at 11/03/24 0838 traZODone (Desyrel) tablet 100 mg, 100 mg, oral, Nightly, Rosa Willoughby PA-C trimethobenzamide (Tigan) injection 200 mg, 200 mg, intramuscular, q6h PRN, Debbie Luna, DIRECTOR DERMATOLOGY, 200 mg at 11/03/24 0018 Cosigned by [...] coronary intervention Katie Altamirano MD, MPH, FACC, [facility], [facility] Interventional Cardiology Pager Email: [email or web address] * Sid Cruz PA-C - 11/03/2024 8:12 AM EDT Images from the original note were not included. [facility] Surgical Intensive Care Unit Progress Note Chief [...] thrive who presented as a transfer from [place]. She had an NSTEMI and underwent a [...] oz)] 84.8 kg (186 lb 15.2 oz) (11/03 0000) Kris Coma Scale Score: 15 I/O last [...] Value Ventricular Rate 74 Atrial Rate 74 TN Interval 138 QRS DURATION 84 QT Interval 454 QTC CALCULATION(BAZETT) 503 P [place] 54 R-[place] 41 T Wave [place] 77 Impression Normal sinus rhythm T abnormalities consider high lateral ischemia Mild ST elevation in V2 and V3 , consider acute septal injury Abnormal ECG Confirmed by Griffin Diaz (102) on 11/02/2024 10:58:13 PM Assessment TThe patient is a 34 y.o. female who presented with an NSTEMI, was taken to the medical laboratory manager x2 and hasa an expanding right groin [...] (placed patch every 72hours). Resume home PRN Tulare 5-325 Q4H, PRN 650 mg Q8H -On [...] from the original note were not included. [facility] Medicine Daily Progress Note - 11/02/2024 1:27 PM; Room: [facility]- Admission: 10/30/2024 6:28 PM; Length of stay: 3 days THE HOSPITALIST TEAM PREFERS TO USE [employer] FOR NON-URGENT COMMUNICATION 7AM- 7PM. IF I DO NOT RESPOND WITHIN 20 MINUTES OR URGENT MATTERS, PLEASE CALL THROUGH THE PARTRIDGE FARMER. FROM 7PM-7AM, PLEASE PAGE [phone](COVR). Code Status: Full Code Barriers to Discharge: [...] pain today patient brought urgently back to Food Service Director Prolonged Q-T interval on ECG -QT mildly prolonged; read as 492 ms however calculation revealing 429 -Okay with reglan Type 2 diabetes mellitus without complication, without long-term current use of insulin (CMS/[facility]) - Patient currently taking metformin at home [...] Lab Units 11/02/24 0615 11/01/24 1010 10/31/24 0627 10/30/24 1911 WBC AUTO 10*3/uL 4.49 4.80 < > 4.32 HEMOGLOBIN g/dL 10.8* 11.3* < > 9.7* HEMATOCRIT % 33.3* 34.6* < > 29.6* MCV fL 90.2 89.4 < > 89.7 PLATELETS AUTO 10*3/uL 292 300 < > 272 INR -- -- -- 1.15* < > = values in this interval not displayed. Chemistry: Results from last 7 days Lab Units 11/01/24 1010 10/31/24 0627 10/30/24 191 SODIUM mmol/L 137 140 139 POTASSIUM mmol/L 4.6 4.0 3.7 CHLORIDE mmol/L 106 110* 110* CO2 mmol/L 27 26 23 BUN mg/dL 9 5* 5* CREATININE mg/dL 0.53* 0.60 0.64 GLUCOSE mg/dL 98 83 101* MAGNESIUM mg/dL -- 1.8* 1.7* CALCIUM mg/dL 8.6 7.7* 7.8* PHOSPHORUS mg/dL -- -- 4.4 Results from last 7 days Lab Units 10/30/24 1911 AST U/L 19 ALT U/L 7 ALK [...] LDL 73 10/31/2024 No results found for: [id number] , IRON , TIBC , C3 , [...] informed consent. she was brought to the medical laboratory manager in a fasting state. The left wrist area was prepped and draped in usual fashion. Micropuncture technique was used for access in the radial artery. A 5-Citizen [place] x 11 cm sheath was placed. Verapamil was given through the sheath, and heparin was administered intravenously. A 5 Citizen [place] JR4 diagnostic catheter was advanced and this [...] catheter was then downsized to a 4 [place] JR4 diagnostic catheter however this also was not able to engage the right coronary artery. Catheter was exchanged to a JR4 diagnostic catheter which could not engage the left coronary artery. Catheter was exchanged to a 4 Citizen [place] JL 3.5 diagnostic catheter which eventually was able to engage the left coronary artery. Angiography was performed in multiple views. Catheter was exchanged over the wire to a 4 Citizen [place] 3DRC catheter. Multiple attempts were made to [...] Self Care () Signed Ky Ritter MD [facility] Medicine 11/02/2024 1:27 PM * LIA Shetty - 11/02/2024 9:55 AM EDT Discharge Planning Patient is medically ready for discharge. MIRYAM received information from [facility] patient was being served through their [facility]. MIRYAM sent referral to them through [facility]. * Lisa Pena DO - 11/02/2024 9:08 [...] who came as a direct admission from [facility] due to chest pain. Patient states that [...] Value Ventricular Rate 76 Atrial Rate 76 TN Interval 132 QRS DURATION 84 QT Interval 444 QTC CALCULATION(BAZETT) 499 P [place] 72 R-[place] 50 T Wave [place] 89 Impression Normal sinus rhythm T cahnges, consider anterior and high lateral ischemia Prolonged QT Abnormal ECG Confirmed by Griffin Diaz (102) on 11/01/2024 11:37:39 PM No results found for: CKTOTAL , CKMB , CKMBINDEX , TROPONINI Limited Echo (TTE) w/wo Limited Doppler, Color Flow, Imaging Agent, Strain, 3D, Bubble Study Result Date: 10/31/2024 1 1 [facility] Heart Station [address] [place] [address] [phone] (fax) Echocardiogram-[facility] Name: JUAN KONG Study Date: 10/31/2024 11:16 AM B/P: 106 mmHg/67 mmHg HR: 70 bpm Date of : 1990 [facility]. Age: 34 year(s) [...] minimal pericardial effusion. Procedure Staff Reading Group: [facility] Automatic Data Processing Planner: DAVID Kearney, RDCS Ordering Physician: KY RITTER [...] informed consent. she was brought to the medical laboratory manager in a fasting state. The left wrist area was prepped and draped in usual fashion. Micropuncture technique was used for access in the radial artery. A 5-Citizen [place] x 11 cm sheath was placed. Verapamil was given through the sheath, and heparin was administered intravenously. A 5 Citizen [place] JR4 diagnostic catheter was advanced and this [...] catheter was then downsized to a 4 [place] JR4 diagnostic catheter however this also was not able to engage the right coronary artery. Catheter was exchanged to a JR4 diagnostic catheter which could not engage the left coronary artery. Catheter was exchanged to a 4 Citizen [place] JL 3.5 diagnostic catheter which eventually was able to engage the left coronary artery. Angiography was performed in multiple views. Catheter was exchanged over the wire to a 4 [place] 3DRC catheter. Multiple attempts were made to [...] least in part, completed using a voice roofing supervisor system. Every effort was made to ensure accuracy. However, inadvertent computerized roofing supervisor errors may be present. Lisa Pena DO Internal Medicine Resident, PGY-2 [facility] 9:08 AM 11/02/24 [1] Current Facility-Administered Medications: acetaminophen (Tylenol) tablet 650 mg, 650 mg, oral, q6h PRN, Debbie Luna CNP Adult Cyclic 3-in-1 TPN, 2,300 mL, intravenous, Cyclic TPN, Kaye Craig, RD, Last Rate: 79.8 mL/hrat 11/02/24 08, Rate Change at 11/02/24 0802 albuterol 90 mcg/actuation inhaler 2 puff, 2 puff, inhalation, q6h PRN, Debbie Luna CNP aspirin chewable tablet 81 mg, 81 mg, [...] mg, 20 mg, oral, Daily, Debbiejossie Luna, DIRECTOR DERMATOLOGY, 20 mg at 11/02/24 0856 fentaNYL (Duragesic) 25 mcg/hr 1 patch, 1 patch, transdermal, q72h, Ky Ritter MD, 1 patch at10/31/24 1236 heparin (porcine) injection 5,000 Units, 5,000 Units, subcutaneous, q8h TANIA, Janet Soto MD, 5,000 Units at 11/02/24 0556 HYDROcodone-acetaminophen (T[place]are) 5-325 mg per tablet 1 tablet, 1 tablet, oral, q4h PRN, Debbie Luna, DIRECTOR DERMATOLOGY, 1 tablet at 11/02/24 0556 hydrocortisone (Cortef) tablet 10 mg, 10 mg, oral, Daily, Debbie Pirkl, DIRECTOR DERMATOLOGY, 10 mg at 11/02/24 0856 hydrOXYzine pamoate (Vistaril) capsule 50 mg, 50 mg, oral, Nightly PRN, Debbie Luna, DIRECTOR DERMATOLOGY insulin lispro (HumaLOG) injection 0-5 Units, 0-5 Units, subcutaneous, TID with meals AND insulin lispro (HumaLOG) injection 0-4 Units, 0-4 Units, subcutaneous, Nightly, Debbie Luna DIRECTOR DERMATOLOGY levothyroxine (Synthroid, Levoxyl) tablet 75 mcg, 75 mcg, oral, Daily before breakfast, Debbie kl, DIRECTOR DERMATOLOGY, 75 mcg at 11/02/24 0556 liothyronine (Cytomel) tablet 5 mcg, 5 mcg, oral, Daily, Debbie Luna, DIRECTOR DERMATOLOGY, 5 mcg at 11/02/24 0857 melatonin tablet 5 mg, 5 mg, oral, Nightly PRN, Debbie Luna, DIRECTOR DERMATOLOGY methocarbamol (Robaxin) tablet 750 mg, 750 mg, oral, 4x daily, Debbie Pirkl, DIRECTOR DERMATOLOGY, 750 mg at 11/02/24 0856 metoclopramide (Reglan) tablet 10 mg, 10 mg, oral, Daily PRN, Debbie Luna, DIRECTOR DERMATOLOGY metoprolol succinate XL (Toprol-XL) 24 hr split tablet 12.5 mg, 12.5 mg, oral, Daily, Ky Ritter MD, 12.5 mg at 11/02/24 0856 mirtazapine (Remeron) tablet 45 mg, 45 mg, oral, Nightly, Debbie Pirkl, DIRECTOR DERMATOLOGY, 45 mg at 11/01/24 2223 pantoprazole (ProtoNix) EC tablet 40 mg, 40 mg, oral, BID AC, Debbie Pirkl, DIRECTOR DERMATOLOGY, 40 mg at 11/02/24 0556 sodium chloride 0.9 % infusion, 100 mL/hr, intravenous, Continuous, Janet Soto MD, Stopped at 11/02/24 0841 Insert peripheral IV, , , Once AND Saline lock IV, , , Once AND sodium chloride flush 10 mL, 10 mL, intravenous, q8h PRN, Debbie Pirkl, DIRECTOR DERMATOLOGY sucralfate (Carafate) tablet 1 g, 1 g, oral, Before meals & nightly, Debbie Pirkl, DIRECTOR DERMATOLOGY, 1 g at 11/02/24 0556 topiramate (Topamax) tablet 100 mg, 100 mg, oral, BID, Debbie Pirkl, DIRECTOR DERMATOLOGY, 100 mg at 11/02/24 0856 traMADol (Ultram) tablet 50 mg, 50 mg, oral, q6h PRN, Debbie Pirkl, DIRECTOR DERMATOLOGY, 50 mg at 11/02/24 0859 traZODone (Desyrel) tablet 100 mg, 100 mg, oral, Nightly, Debbie Pirkl, DIRECTOR DERMATOLOGY, 100 mg at 11/01/24 215 trimethobenzamide (Tigan) injection 200 mg, 200 mg, intramuscular, q6h PRN, Debbie Pirkl, DIRECTOR DERMATOLOGY, 200 mg at 11/01/24 2019 Cosigned by [...] stent placement. Katie Altamirano MD, MPH, FACC, [facility], [facility] Interventional Cardiology Pager Email: [email or web address] * LIA Shetty - 11/01/2024 10:45 AM EDT MIRYAM consult for Home TPN supplies upon discharge Patient will be discharged with continued need for home TPN services. Before admission service provided by [facility]. SW sent referral to them through [facility] to confirm ability to continue services. * Ky Ritter MD - 11/01/2024 7:33 AM EDT Images from the original note were not included. / Hospital Medicine Daily Progress Note - 11/01/2024 7:33 AM; Room: [facility]/3187- Admission: 10/30/2024 6:28 PM; Length of stay: 2 days THE HOSPITALIST TEAM PREFERS TO USE [employer] CHAT FOR NON-URGENT COMMUNICATION 7AM- 7PM. IF I DO NOT RESPOND WITHIN 20 MINUTES OR URGENT MATTERS, PLEASE CALL THROUGH THE [employer]TR[employer]GE FARMER. FROM 7PM-7AM, PLEASE PAGE [phone](COVR). Code Status: Full Code Barriers to Discharge: [...] Intake/Output Summary (Last 24 hours) at 11/01/2024 0735 Last data filed at 11/01/2024 0540 Gross [...] 2,300 mL, Last Rate: 158.5 mL/hr at 11/01/24 0406 heparin, 0-28 Units/kg/hr, Last Rate: 15 Units/kg/hr (11/01/24 0406) Pertinent Investigations Hematology: Results from last 7 days Lab Units 10/31/2462610/30/241910 WBC AUTO 10*3/uL 3.65* 4.32 HEMOGLOBIN g/dL 9.4* 9.7* HEMATOCRIT % 29.2* 29.6* MCV fL 91.0 89.7 PLATELETS AUTO 10*3/uL 235 272 INR -- 1.15* Chemistry: Results from last 7 days Lab Units 10/31/2462610/30/241910 SODIUM mmol/L 140 139 POTASSIUM mmol/L 4.0 3.7 CHLORIDE mmol/L 110* 110* CO2 mmol/L 26 23 BUN mg/dL 5* 5* CREATININE mg/dL 0.60 0.64 GLUCOSE mg/dL 83 101* MAGNESIUM mg/dL 1.8* 1.7* CALCIUM mg/dL 7.7* 7.8* PHOSPHORUS mg/dL -- 4.4 Results from last 7 days Lab Units 10/30/24 1911 AST U/L 19 ALT U/L 7 ALK PHOS U/L 45 BILIRUBIN TOTAL mg/dL 0.2* Results from last 7 days Lab Units 11/01/24 0602 10/31/24201910/31/24 1155 10/31/24 0722 10/30/24 2112 POCT GLUCOSE mg/dL 114* 90 82 87 97 Historical Values: (Includes values prior to this admission) Lab Results Component Value Date TSH 3.46 10/30/2024 HDL 43 10/31/2024 LDL 73 10/31/2024 No results found for: [id number] , IRON , TIBC , C3 , [...] informed consent. she was brought to the medical laboratory manager in a fasting state. The left wrist area was prepped and draped in usual fashion. Micropuncture technique was used for access in the radial artery. A 5-Citizen [place] x 11 cm sheath was placed. Verapamil was given through the sheath, and heparin was administered intravenously. A 5 Citizen [place] JR4 diagnostic catheter was advanced and this [...] catheter was then downsized to a 4 [place] JR4 diagnostic catheter however this also was not able to engage the right coronary artery. Catheter was exchanged to a JR4 diagnostic catheter which could not engage the left coronary artery. Catheter was exchanged to a 4 Citizen [place] JL 3.5 diagnostic catheter which eventually was able to engage the left coronary artery. Angiography was performed in multiple views. Catheter was exchanged over the wire to a 4 [place] 3DRC catheter. Multiple attempts were made to [...] Agent, Strain, 3D, Bubble Study 1 1 [facility] Heart Station [address] [place] [address] [phone] (fax) Echocardiogram-[facility] Name: JUAN KONG Study Date: 10/31/2024 11:16 AM B/P: 106 mmHg/67 mmHg HR: 70 bpm Date of : 1990 Location: [facility] Height: 66 in. Age: 34 [...] minimal pericardial effusion. Procedure Staff Reading Group: [facility] Automatic Data Processing Planner: Raegan Cardona, BS, RDCS Ordering Physician: KY RITTER Wall Motion Scores -1 - hyperkinesia, 0 - not evaluated, 1 - normal, 2 - hypokinesia, 3 - akinesia, 4 - dyskinesia Discharge Planning Expected Discharge Disposition: Home or Self Care (01) Signed Ky Ritter MD Hospital Medicine 11/01/2024 7:33 AM * Kaye Craig, RD - 10/31/2024 2:19 PM EDT Adult Nutrition [...] 0 Lab Value Date/Time POCGLU 82 10/31/2024 115 BUN 5 (L) 10/31/2024626 CREATININE 0.60 10/31/2024626 [...] Assessment: Last BM 10/29/24 IBS, alternating c/d 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 No routine or PRN bowel [...] PO diet regular as tolerated. Intakes variable. [place], small meals. ONS. Dextrose 200 g AA [...] ideal body weight (59.3 kg) Calorie needs: 0396-5409 kcals/day based on 25-30 kcal/kg Protein needs: [...] of Nutrition and Dietetics (AND) and the [place] Society of Enteral and Parenteral Nutrition (ASPEN). [...] To reach the Clinical Dietitian, please utilize [employer] chat Wednesday-Wednesday from 8AM-4PM or call extension [phone]. For weekends (Wednesday-Wednesday) and hols, the Clinical Dietitian can be reached via pager [phone]) from 9AM-3PM. The Clinical Nutrition Department is unable to respond to [employer] chat messages on Sundays and . [1] Allergies Allergen Reactions Codeine Nausea And Vomiting Nsaids (Non-Steroidal Anti-Inflammatory Drug) GI intolerance Adhesive Rash * Jami Bridges RN - 10/31/2024 12:28 PM EDT Line Maintainer called to room as patient states her [...] days THE HOSPITALIST TEAM PREFERS TO USE [employer] CHAT FOR NON-URGENT COMMUNICATION 7AM- 7PM. IF I DO NOT RESPOND WITHIN 20 MINUTES OR URGENT MATTERS, PLEASE CALL THROUGH THE [employer]TRIDGE FARMER. FROM 7PM-7AM, PLEASE PAGE [phone](COVR). Code Status: Full Code Barriers to Discharge: [...] & Plan NSTEMI (non-ST elevated myocardial infarction) ([facility]/HCC) -Trop 390 at OSH, now downward trending -Continue heparin gtt -Cardiology consulted -Pending TTE, cath Prolonged Q-T interval on ECG -QT mildly prolonged -Continue Tigan for now and avoid other QT prolonging agents Type 2 diabetes mellitus without complication, without long-term current use of insulin ([facility]/HCC) - Patient currently taking metformin at home [...] TSH 3.46 10/30/2024 No results found for: [id number] , IRON , TIBC , C3 , C4 , MISAEL , CANCA , ASO , PSA , CEA , CA125 , CA199 , AFP , CA153 Imaging ECG 12 lead Sinus rhythm with sinus arrhythmia with occasional Premature ventricular complexes Prolonged QT Abnormal ECG No previous ECGs available Discharge Planning Expected Discharge Disposition: Home or Self Care (01) Signed Ky Ritter MD [facility] Medicine 10/31/2024 7:18 AM documented in this encounter H&P Notes * Janet Soto MD - 11/02/2024 1:30 PM EDT H&P reviewed. The patient was examined and there are no changes to the H&P. Procedure reviewed with patient, risks including stroke, OK, discussed. Ms Kong is agreeable to coronary [...] who came as a direct admission from [facility] due to chest pain. Patient states that [...] 1 patch, transdermal, Every 72 hours HYDROcodone-acetaminophen (Tulare) 5-325 mg tablet 2 tablets, oral, Every [...] -- -- 102 10 98 % -- 10/31/24 2045 121/80 -- -- 100 19 98 % -- 10/31/249 106/83 -- -- 106 21 99 % [...] Value Ventricular Rate 76 Atrial Rate 76 TN Interval 132 QRS DURATION 84 QT Interval 444 QTC CALCULATION(BAZETT) 499 P [place] 72 R-[place] 50 T Wave [place] 89 Impression Normal sinus rhythm Prolonged QT Abnormal ECG When compared with ECG of 31-OCT-2024 08:43, No significant change was found No results found for: CKTOTAL , CKMB , CKMBINDEX , TROPONINI Limited Echo (TTE) w/wo Limited Doppler, Color Flow, Imaging Agent, Strain, 3D, Bubble Study Result Date: 10/31/2024 1 1 [facility] Heart Station [address] [place] [address] [phone] (fax) Echocardiogram-[facility] Name: JUAN KONG Study Date: 10/31/2024 11:16 AM B/P: 106 mmHg/67 mmHg HR: 70 bpm Date of : 1990 [facility] Age: 34 year(s) Patient Room: [facility] Weight: 181 lb. Gender: Female Patient [...] minimal pericardial effusion. Procedure Staff Reading Group: [facility] Automatic Data Processing Planner: DAVID Kearney, RDCS Ordering Physician: KY RITTER [...] on TPN presents a direct admission from [facility] with chief complaint of chest pain. She [...] infiltrated over the right femoral artery. A 5-Citizen [place] Terumo sheath was placed in right femoral [...] was maintained at >250 seconds. A 5 [place] Cordis XB 3.0 guide was engaged to the left main. I decided to proceed with IVUS. I then advanced a Runthrough wire to the distal left anterior descending. Next, I advanced a Celsias IVUS catheter. IVUS imaging was performed and [...] 31-OCT-2024 08:43, No significant change was found Echocardiogram-[facility] Name: JUAN KONG Study Date: 10/31/2024 11:16 AM B/P: 106 mmHg/67 mmHg HR: 70 bpm Date of : 1990 Location: [facility] Height: 66 in. Age: 34 [...] least in part, completed using a voice roofing supervisor system. Every effort was made to ensure accuracy. However, inadvertent computerized roofing supervisor errors may be present. Lisa Pena DO Internal Medicine Resident, PGY-2 [facility] 4:26 PM 11/01/24 Maria D Bailey MD PGY-5 Steward/Stewardess Second Class [facility] Pager: [phone] [1] No family history on file. [2] [...] the morning. ergocalciferol (Vitamin D-2) 1.25 MG (13387 Units) capsule Take 50,000 Units by mouth 1 (one) time per week. escitalopram (Lexapro) 20 mg tablet Take 20 mg by mouth in the morning. fentaNYL (Duragesic) 12 mcg/hr Place 1 patch on the skin every 3rd (third) day. Takes 12 mcg and 25mcg together every 3 days fentaNYL (Duragesic) 25 mcg/hr Place 1 patch on the skin every 3rd (third) day. HYDROcodone-acetaminophen (Tulare) 5-325 mg tablet Take 2 tablets by [...] Procedure reviewed with patient, risks including stroke, OK, , bleeding and infection complications discussed.Ms. Kong [...] who came as a direct admission from [facility] due to chest pain. Patient states that [...] 1 patch, transdermal, Every 72 hours HYDROcodone-acetaminophen (T[place]are) 5-325 mg tablet 2 tablets, oral, Every [...] 68 14 98 % -- -- 10/30/24 183 (!) 117/44 36.1 ??C (97 ??F) Temporal [...] Value Ventricular Rate 83 Atrial Rate 83 TN Interval 144 QRS DURATION 88 QT Interval 422 QTC CALCULATION(BAZETT) 495 P [place] 62 R-[place] 19 T Wave [place] 56 Impression Sinus rhythm with sinus arrhythmia [...] QT Abnormal ECG No previous ECGs available Echocardiogram-[facility] Name: JUAN KONG Study Date: 10/31/2024 11:16 AM B/P: 106 mmHg/67 mmHg HR: 70 bpm Date of : 1990 Location: [facility] Height: 66 in. Age: 34 year(s) Patient Room : 9357 Weight: 181 lb. Gender: Female Patient Status: [...] least in part, completed using a voice roofing supervisor system. Every effort was made to ensure accuracy. However, inadvertent computerized roofing supervisor errors may be present. Lisa Pena DO Internal Medicine Resident, PGY-2 [facility] 7:50 AM 10/31/24 [1] No [...] the morning. ergocalciferol (Vitamin D-2) 1.25 MG (05062 Units) capsule Take 50,000 Units by mouth 1 (one) time per week. escitalopram (Lexapro) 20 mg tablet Take 20 mg by mouth in the morning. fentaNYL (Duragesic) 12 mcg/hr Place 1 patch on the skin every 3rd (third) day. Takes 12 mcg and 25mcg together every 3 days fentaNYL (Duragesic) 25 mcg/hr Place 1 patch on the skin every 3rd (third) day. HYDROcodone-acetaminophen (Tulare) 5-325 mg tablet Take 2 tablets by [...] Procedure reviewed with patient, risks of stroke, OK, discussed. Ms Kong is agreeable to proceed [...] who came as a direct admission from [facility] due to chest pain. Patient states that [...] 1 patch, transdermal, Every 72 hours HYDROcodone-acetaminophen (Tulare) 5-325 mg tablet 2 tablets, oral, Every [...] Value Ventricular Rate 83 Atrial Rate 83 TN Interval 144 QRS DURATION 88 QT Interval 422 QTC CALCULATION(BAZETT) 495 P [place] 62 R-[place] 19 T Wave [place] 56 Impression Sinus rhythm with sinus arrhythmia [...] QT Abnormal ECG No previous ECGs available Echocardiogram-[facility] Name: JUAN KONG Study Date: 10/31/2024 11:16 AM B/P: 106 mmHg/67 mmHg HR: 70 bpm Date of : 1990 Location: [facility] Height: 66 in. Age: 34 [...] least in part, completed using a voice roofing supervisor system. Every effort was made to ensure accuracy. However, inadvertent computerized roofing supervisor errors may be present. Lisa Pena DO Internal Medicine Resident, PGY-2 [facility] 7:50 AM 10/31/24 [1] No [...] the morning. ergocalciferol (Vitamin D-2) 1.25 MG (45590 Units) capsule Take 50,000 Units by mouth 1 (one) time per week. escitalopram (Lexapro) 20 mg tablet Take 20 mg by mouth in the morning. fentaNYL (Duragesic) 12 mcg/hr Place 1 patch on the skin every 3rd (third) day. Takes 12 mcg and 25mcg together every 3 days fentaNYL (Duragesic) 25 mcg/hr Place 1 patch on the skin every 3rd (third) day. HYDROcodone-acetaminophen (Tulare) 5-325 mg tablet Take 2 tablets by [...] PM THE HOSPITALIST TEAM PREFERS TO USE [employer] CHAT FOR NON-URGENT COMMUNICATION 7AM- 7PM. IF I DO NOT RESPOND WITHIN 20 MINUTES OR URGENT MATTERS, PLEASE CALL THROUGH THE PARTRIDGE FARMER. FROM 7PM-7AM, PLEASE PAGE [phone](COVR). Chief Complaint Direct admission from [facility] with [facility] History of Present Illness Juan [...] on TPN presents a direct admission from [facility] with chief complaint of chest pain. Patient [...] is a 7 out of 10. At [facility], x-ray was completed showing mild fluid overload. Troponin was found to be elevated at 390. Cardiology team was contacted and they recommended transfer for higher level of care. She was also started on a heparin infusion at that time. [facility] labs were completed showing [...] dizziness and light-headedness. Negative for seizures, facial asymmetry, numbness and headaches. Psychiatric/Behavioral: Negative for agitation, behavioral [...] complication, without long-term current use of insulin ([facility]) - Patient currently taking metformin at home, [...] this hospital stay by a member of [facility]. Past Medical History Medical History[1] [...] Insufficiently Active (06/30/2023) Received from [facility] Exercise Vital Sign Days of Exercise per Week: 3 days Minutes of Exercise per Session: 10 min Stress: Stress Concern Present (06/30/2023) Received from [facility] [place] [facility] [employer] - Occupational Stress Questionnaire Feeling of Stress : Rather much Social Connections: Moderately Integrated (06/30/2023) Received from [facility] Social Connection and Isolation Panel [NHANES] Frequency of Communication with Friends and Family: Twice a week Frequency of Social Gatherings with Friends and Family: Twice a week Attends Adventism Services: More than 4 times per year [...] Procedure Abnormality Status --------- ------ CBC auto differential[[id number]] Abnormal Final result Please view results for these tests on the individual orders. HIGH SENSITIVITY TROPONIN I ANTI-XA (HEPARIN LEVEL) POCT GLUCOSE METER Imaging ECG 12 lead Sinus rhythm with sinus arrhythmia with occasional Premature ventricular complexes Prolonged QT Abnormal ECG No previous ECGs available [facility]igned [facility] 10/30/2024 8:57 PM [1] No past [...] the morning. ergocalciferol (Vitamin D-2) 1.25 MG (86478 Units) capsule Take 50,000 Units by mouth 1 (one) time per week. escitalopram (Lexapro) 20 mg tablet Take 20 mg by mouth in the morning. fentaNYL (Duragesic) 12 mcg/hr Place 1 patch on the skin every 3rd (third) day. Takes 12 mcg and 25mcg together every 3 days fentaNYL (Duragesic) 25 mcg/hr Place 1 patch on the skin every 3rd (third) day. HYDROcodone-acetaminophen (Tulare) 5-325 mg tablet Take 2 tablets by [...] from the original note were not included. [facility] Department of Urology CONSULTATION Reason for Consult: [...] to thrive. Patient was a transfer from [facility] due to an NSTEMI. Underwent cardiac catheterizations [...] issues with retention. Was previously seen in [facility] for this. Was seen by [facility] local any significant prolapse-good specialist for questionable [...] Insufficiently Active (06/30/2023) Received from [facility] Exercise Vital Sign Days of Exercise per Week: 3 days Minutes of Exercise per Session: 10 min Stress: Stress Concern Present (06/30/2023) Received from [facility] [place] of Occupational [facility] - Occupational Stress Questionnaire Feeling of Stress : Rather much Social Connections: Moderately Integrated (06/30/2023) Received from [facility] Social Connection and Isolation Panel [NHANES] Frequency of Communication with Friends and Family: Twice a week Frequency of Social Gatherings with Friends and Family: Twice a week Attends Adventism Services: More than 4 times per year [...] infiltrated over the right femoral artery. A 6-Citizen Of [place] sheath was placed in right femoral artery. Coronary angiography was performed with a JL4 and then repeated after IC nitroglycerin 50 mcg x 2. At this time, it was apparent that the LAD had a moderate stenosis and IVUS and iFR were performed. Heparin anticoagulation was used for this procedure. ACT was maintained at >250 seconds. A 6 [place] xb3 was engaged to the [place]. I [...] informed consent. she was brought to the medical laboratory manager in a fasting state. The left wrist area was prepped and draped in usual fashion. Micropuncture technique was used for access in the radial artery. A 5-Citizen [place] x 11 cm sheath was placed. Verapamil was given through the sheath, and heparin was administered intravenously. A 5 Citizen [place] JR4 diagnostic catheter was advanced and this [...] catheter was then downsized to a 4 Citizen [place] JR4 diagnostic catheter however this also was not able to engage the right coronary artery. Catheter was exchanged to a JR4 diagnostic catheter which could not engage the left coronary artery. Catheter was exchanged to a 4 Citizen [place] JL 3.5 diagnostic catheter which eventually was able to engage the left coronary artery. Angiography was performed in multiple views. Catheter was exchanged over the wire to a 4 Citizen [place] 3DRC catheter. Multiple attempts were made to [...] 650 mg, 650 mg, oral, q8h PRN, iSd McQuillin, PA-C Adult Cyclic 3-in-1 TPN, 2,300 mL, intravenous, Cyclic TPN, Kaye [place], RD albuterol 90 mcg/actuation inhaler 2 puff, 2 puff, inhalation, q6h PRN, Debbie Luna CNP aspirin EC tablet 81 mg, 81 mg, oral, Daily, Sid McQuillin, PA-C, 81 mg at 11/03/24 1319 atorvastatin (Lipitor) tablet 80 mg, 80 mg, oral, Nightly, Rosa Willoughby PA-C clopidogrel (Plavix) tablet 75 mg, 75 mg, oral, Daily, Sid McQuillin, PA-C, 75 mg at 11/03/24 1319 glucose chewable tablet 24 g, 24 g, oral, q15 min PRN OR dextrose 50 % in water (D50W) syringe 25 g, 25 g, intravenous, q15 min PRN, Debbie Luna, DIRECTOR DERMATOLOGY, 25 g at 10/31/24 1228 diphenhydrAMINE (BENADryl) [...] PA-C, 1 patch at 11/03/24 1128 HYDROcodone-acetaminophen (Tulare) 5-325 mg per tablet 1 tablet, 1 tablet, oral, q4h PRN, 1 tablet at 11/03/24 1011 OR HYDROcodone-acetaminophen (Tulare) 5- 325 mg per tablet 2 tablet, 2 tablet, oral, q4h PRN, Ky Ritter MD, 2 tablet at 11/03/24 1319 hydrocortisone (Cortef) tablet 10 mg, 10 mg, oral, Daily, Debbie Luna CNP, 10 mg at 11/03/24 1014 HYDROmorphone (Dilaudid) injection 0.2 mg, 0.2 mg, intravenous, q3h PRN, Sid Cruz PA-C hydrOXYzine pamoate (Vistaril) capsule 50 mg, 50 mg, oral, Nightly PRN, Debbie Luna DIRECTOR DERMATOLOGY insulin lispro (HumaLOG) injection 0-5 Units, 0-5 [...] mg, 5 mg, oral, Nightly PRN, Debbie Pirkl, DIRECTOR DERMATOLOGY methocarbamol (Robaxin) tablet 750 mg, 750 mg, oral, 4x daily, Rosa Willoughby PA-C, 750 mg at 11/03/24 1319 metoclopramide (Reglan) tablet 10 mg, 10 mg, oral, Daily PRN, Debbie Luna, DIRECTOR DERMATOLOGY, 10 mg at 11/03/24 0840 metoprolol succinate [...] 50 mg, oral, q6h PRN, Debbie Pirkl, DIRECTOR DERMATOLOGY, 50 mg at 11/03/24 0838 traZODone (Desyrel) tablet 100 mg, 100 mg, oral, Nightly, Rosa Willoughby PA-C trimethobenzamide (Tigan) injection 200 mg, 200 mg, intramuscular, q6h PRN, Debbie Pirkl, DIRECTOR DERMATOLOGY, 200 mg at 11/03/24 0018 [5] No family history on file. Cosigned by Nic Aviles MD at 11/10/2024 3:02 PM EDT * Miles Ramos MD - 11/02/2024 7:54 PM EDTAssociated Order(s): IP CONSULT TO VASCULAR SURGERY Images from the original note were not included. [facility] Vascular/Endovascular Surgery Oil Burner Technician Complaint R groin hematoma History and [...] Insufficiently Active (06/30/2023) Received from [facility] Exercise Vital Sign Days of Exercise per Week: 3 days Minutes of Exercise per Session: 10 min Stress: Stress Concern Present (06/30/2023) Received from [facility] [place] [facility]ational Health - Occupational Stress Questionnaire Feeling of Stress : Rather much Social Connections: Moderately Integrated (06/30/2023) Received from [facility] Social Connection and Isolation Panel [NHANES] Frequency of Communication with Friends and Family: Twice a week Frequency of Social Gatherings with Friends and Family: Twice a week Attends Adventism Services: More than 4 times per year [...] Position: Pulse: 94 94 96 102 Resp: 14 Temp: TempSrc: SpO2: 98% 98% 100% [...] days Lab Units 11/02/24 0615 11/01/24 1010 10/31/2462610/30/241910 WBC AUTO 10*3/uL 4.49 4.80 3.65* 4.32 HEMOGLOBIN g/dL 10.8* 11.3* 9.4* 9.7* HEMATOCRIT % 33.3* 34.6* 29.2* 29.6* PLATELETS AUTO 10*3/uL 292 300 235 272 NEUTROS PCT % -- -- -- 44.2 MONO PCT % -- -- -- 7.9 EOS PCT % -- -- -- 2.1 Results from last 7 days Lab Units 11/01/24 1010 10/31/2462610/30/241910 POTASSIUM mmol/L 4.6 4.0 3.7 CO2 mmol/L [...] infiltrated over the right femoral artery. A 6-Citizen [place] sheath was placed in right femoral artery. Coronary angiography was performed with a JL4 and then repeated after IC nitroglycerin 50 mcg x 2. At this time, it was apparent that the LAD had a moderate stenosis and IVUS and iFR were performed. Heparin anticoagulation was used for this procedure. ACT was maintained at >250 seconds. A 6 Citizen [place] xb3 was engaged to the [place]. I then advanced a 0.014 guidewire to the distal left anterior descending. IVUS imaging was performed with a [employer] catheter after additional IC nitroglycerin and IV [...] informed consent. she was brought to the medical laboratory manager in a fasting state. The left wrist area was prepped and draped in usual fashion. Micropuncture technique was used for access in the radial artery. A 5-Citizen [place] x 11 cm sheath was placed. Verapamil was given through the sheath, and heparin was administered intravenously. A 5 Citizen [place] JR4 diagnostic catheter was advanced and this [...] catheter was then downsized to a 4 [place] JR4 diagnostic catheter however this also was not able to engage the right coronary artery. Catheter was exchanged to a JR4 diagnostic catheter which could not engage the left coronary artery. Catheter was exchanged to a 4 Citizen [place] JL 3.5 diagnostic catheter which eventually was able to engage the left coronary artery. Angiography was performed in multiple views. Catheter was exchanged over the wire to a 4 [place] 3DRC catheter. Multiple attempts were made to [...] the morning. ergocalciferol (Vitamin D-2) 1.25 MG (74585 Units) capsule Take 50,000 Units by mouth 1 (one) time per week. escitalopram (Lexapro) 20 mg tablet Take 20 mg by mouth in the morning. fentaNYL (Duragesic) 12 mcg/hr Place 1 patch on the skin every 3rd (third) day. Takes 12 mcg and 25mcg together every 3 days fentaNYL (Duragesic) 25 mcg/hr Place 1 patch on the skin every 3rd (third) day. HYDROcodone-acetaminophen (Tulare) 5-325 mg tablet Take 2 tablets by [...] who came as a direct admission from [facility] due to chest pain. Patient states that [...] 1 patch, transdermal, Every 72 hours HYDROcodone-acetaminophen (Tulare) 5-325 mg tablet 2 tablets, oral, Every [...] Value Ventricular Rate 76 Atrial Rate 76 TN Interval 132 QRS DURATION 84 QT Interval 444 QTC CALCULATION(BAZETT) 499 P [place] 72 R-[place] 50 T Wave [place] 89 Impression Normal sinus rhythm Prolonged QT Abnormal ECG When compared with ECG of 31-OCT-2024 08:43, No significant change was found No results found for: CKTOTAL , CKMB , CKMBINDEX , TROPONINI Limited Echo (TTE) w/wo Limited Doppler, Color Flow, Imaging Agent, Strain, 3D, Bubble Study Result Date: 10/31/2024 1 1 [facility] Heart Station [address] [id number] [phone] (fax) Echocardiogram-[facility] Name: JUAN KONG Study Date: 10/31/2024 11:16 AM B/P: 106 mmHg/67 mmHg HR: 70 bpm Date of : 1990 [facility] Age: 34 year(s) [...] minimal pericardial effusion. Procedure Staff Reading Group: [facility] Automatic Data Processing Planner: DAVID Kearney, RDCS Ordering Physician: [place] RITTER [...] on TPN presents a direct admission from [facility] with chief complaint of chest pain. She [...] infiltrated over the right femoral artery. A 5-Citizen [place] Terumo sheath was placed in right femoral [...] was maintained at >250 seconds. A 5 Citizen [place] Cordis XB 3.0 guide was engaged to the left main. I decided to proceed with IVUS. I then advanced a Runthrough wire to the distal left anterior descending. Next, I advanced a Celsias IVUS catheter. IVUS imaging was performed and [...] 31-OCT-2024 08:43, No significant change was found Echocardiogram-[facility] Name: JUAN KONG Study Date: 10/31/2024 11:16 AM B/P: 106 mmHg/67 mmHg HR: 70 bpm Date of : 1990 Location: [facility] Height: 66 in. Age: 34 [...] least in part, completed using a voice roofing supervisor system. Every effort was made to ensure accuracy. However, inadvertent computerized roofing supervisor errors may be present. Lisa Pena DO Internal Medicine Resident, PGY-2 [facility] 4:26 PM 11/01/24 Maria D Bailey MD PGY-5 Steward/Stewardess Second Class [facility] Pager: [phone] [1] No family history on file. [2] [...] the morning. ergocalciferol (Vitamin D-2) 1.25 MG (35771 Units) capsule Take 50,000 Units by mouth 1 (one) time per week. escitalopram (Lexapro) 20 mg tablet Take 20 mg by mouth in the morning. fentaNYL (Duragesic) 12 mcg/hr Place 1 patch on the skin every 3rd (third) day. Takes 12 mcg and 25mcg together every 3 days fentaNYL (Duragesic) 25 mcg/hr Place 1 patch on the skin every 3rd (third) day. HYDROcodone-acetaminophen (Tulare) 5-325 mg tablet Take 2 tablets by [...] Additional Comments: Katie Altamirano MD, MPH, FACC, [facility], [facility] Interventional Cardiology Pager Email: [email or web address] * Lisa Pena DO - 10/31/2024 [...] who came as a direct admission from [facility] due to chest pain. Patient states that [...] 1 patch, transdermal, Every 72 hours HYDROcodone-acetaminophen (Tulare) 5-325 mg tablet 2 tablets, oral, Every [...] Value Ventricular Rate 83 Atrial Rate 83 TN Interval 144 QRS DURATION 88 QT Interval 422 QTC CALCULATION(BAZETT) 495 P [place] 62 R-[place] 19 T Wave [place] 56 Impression Sinus rhythm with sinus arrhythmia [...] QT Abnormal ECG No previous ECGs available Echocardiogram-[facility] Name: JUAN KONG Study Date: 10/31/2024 11:16 AM B/P: 106 mmHg/67 mmHg HR: 70 bpm Date of : 1990 Location: [facility] Height: 66 in. Age: 34 [...] least in part, completed using a voice roofing supervisor system. Every effort was made to ensure accuracy. However, inadvertent computerized roofing supervisor errors may be present. Lisa Pena DO Internal Medicine Resident, PGY-2 [facility] 7:50 AM 10/31/24 [1] No [...] the morning. ergocalciferol (Vitamin D-2) 1.25 MG (77603 Units) capsule Take 50,000 Units by mouth 1 (one) time per week. escitalopram (Lexapro) 20 mg tablet Take 20 mg by mouth in the morning. fentaNYL (Duragesic) 12 mcg/hr Place 1 patch on the skin every 3rd (third) day. Takes 12 mcg and 25mcg together every 3 days fentaNYL (Duragesic) 25 mcg/hr Place 1 patch on the skin every 3rd (third) day. HYDROcodone-acetaminophen (Tulare) 5-325 mg tablet Take 2 tablets by [...] presentation would be considered a Type I OK/NSTEMI. This may or may not have been related to coronary vasospasm caused by the IV Compazine. Continue IV heparin drip. Invasive coronary angiography is indicated; will adjust pharmacological therapy depending on results. Treatment cardiac morbidities as clinically appropriate Katie Altamirano MD, MPH, [facility], [facility], [facility] Interventional Cardiology Pager Email: [email or web address] documented in this encounter Nursing Notes [...] Deepika Matos RN Rapid Response Team Nurse [phone] 11/07/2024 4:54 PM * Suleiman Borges RN [...] voiced no concerns at this time. The press writer urged theprimary RN to call the rapid team if any concerns arise overnight. Suleiman Borges RN Rapid Response Team Nurse [phone] 11/07/2024 12:52 AM * Fern Snider RN [...] Bedside report given to DEE High from Gely RN. prestressed concrete laborer RN presented site to bedside RN. Bedside RN visualized site and palpated site to ensure there was no hematoma or bruising, and femoral site appears flat. Both bedside RN and medical laboratory manager RN mutually agreed that the site presents normal. prestressed concrete laborer RN and bedside RN either palpated or used a doppler to assess pulses on the patient. * Alyce Ortega RN - 11/02/2024 8:30 PM EDT Pt brought to PRE-OP/pacu from medical laboratory manager. Dr Whitlock holding pressure on right groin site. Pt on monitor. Report obtained. * Nathalie Hurd RN - 11/02/2024 8:13 PM EDT Report given to Thao PRODUCTION SANITIZER, RN from [facility] Any medications or [...] given to DEE Gomez from DEE Shirley. prestressed concrete laborer RN presented site to bedside RN. Bedside RN visualized site and palpated site to ensure there was no hematoma or bruising, and femoral site appears flat. Both bedside RN and medical laboratory manager RN mutually agreed that the site presents normal. prestressed concrete laborer RN and bedside RN either palpated or [...] Emery RN - 11/07/2024 1:32 PM EDT Line Maintainer talked with patient about discharge planning, Line Maintainer did offer HHC to patient for group home due to patient discharging with [facility]. Patient stated she has had [facility] in the past but her insurance is no longer accepting by them. Patient was agreeable to a mass referral to be set out to see who is accepting and who takes her insurance. Line Maintainer notified SW. * Care Plan - Patricia [...] Once Comments: Please send Old Fashioned Hot [place] entree, with a side of green beans; a side salad with mozzarella cheese, croutons, and Ranch dressing, and a Sprite. Thank you! 11/03/24 1337 11/03/24 0847 Special Kitchen Request Once Comments: Please send oatmeal with brown sugar, Rice Krispies with milk, and coffee with cream and sugar. Thank you! 11/03/24 0852 11/02/24 223 Regular Diet Heart Healthy/HTN, CABG,Stroke, (2gNA, low fat, low cholesterol) Diet effective now Question Answer Comment Room Service? Yes Fat restriction: Heart Healthy/HTN, CABG,Stroke, (2gNA, low fat, low cholesterol) 11/02/24223411/01/24 1519 Dietary nutrition supplements Lunch; Gelatein; Deuel; 4 oz; Oral Until discontinued Comments: When diet advances Question Answer Comment Deliver with Lunch Select supplement: Gelatein Flavor Deuel Strength: 4 oz Route Oral 11/01/24 1519 [...] for Consult? Resume primary Level of Consultation Manager Testing assumes full responsibility 11/06/24 0844 Therapy Orders (From admission, onward) Start Ordered 11/06/24 0829 PT eval and treat Until therapy completed Question: Reason for PT? Answer: eval and treat 11/06/24 0828 11/06/24 0829 OT eval and treat Until therapy completed Question: Reason for OT? Answer: eval and treat 11/06/2428 * Care Plan - Radha Godoy RN [...] and behaviors that affect risk of falls [place] fall precautions as indicated by assessment Educate [...] Practitioner order if needed Discuss catheterization for termination clerk situations as appropriate Goal: Urinary catheter remains [...] sites i.e., indwelling lines, tubes and drains [place] appropriate cooling/warming therapies per order Administer medications [...] baseline comfort level Outcome: Progressing Flowsheets (Taken 11/05/2024 0800) Verbalizes/displays adequate comfort level or baseline comfort [...] and behaviors that affect risk of falls [place] fall precautions as indicated by assessment Educate [...] alleviate retention as needed Discuss catheterization for termination clerk situations as appropriate Goal: Urinary catheter remains [...] secretions for changes in amount and color [place] appropriate cooling/warming therapies per order Administer medications [...] sites i.e., indwelling lines, tubes and drains [place] appropriate cooling/warming therapies per order Instruct and [...] Maintains hematologic stability Outcome: Progressing Flowsheets (Taken 11/03/2024) Maintains hematologic stability: Assess for signs and [...] was noted and manual pressure held by medical laboratory manager DEE Stubbs over the hematoma site as well. Dr Collins informed and advised to continue holding pressure. At around 7 pm the hematoma was noted to be expanding. Dr Gilmore, the broadcast operations technician interventionalist was at bedside, evaluated the patient [...] was emergently taken to the OR with medical laboratory manager team, and surgery at bedside. Patients family (mom and ) were updated on the situation. Patient will be admitted to SICU post-operatively. Janet Soto MD Steward/Stewardess Second Class, PGY-4 [facility] 11/02/24 8:56 PM Cosigned by Tino Gilmore [...] large hematoma. When I arrived to the Food Service Director I assessed the hematoma to be significant [...] PSEUDOANEURYSM (R) Operative Note Date: 11/02/2024 Location: [facility] OR Name: Juan Kong, : [...] 11/02/242135 Status To bulb suction 11/02/242135 Staff: Distribution System Operator: Elicia Small RN; Dimitri Hearn RN Scrub Person: Olga Ruiz CST; Celeste Burroughs CST Indications: Juan Kong is [...] 6-0 Prolene sutures were placed in a ycvcim-do-eoboh manner, across the femoral artery luminal defects to obtain hemostasis, taking careful attention not to backwall obstruct the femoral artery. Good hemostasis was witnessed and the incision was packed with thrombin Gelfoam. Next attention was towards the subcutaneous empty space formed by the previous hematoma. The empty space and the wound was thoroughly irrigated using normal saline. A 10 Citizen [place] flat GONSALO drain was placed at the [...] heart rate * Hospital Course - Josefina Mars - 11/02/2024 1:32 PM EDT Juan is a 34 year old female who was transferred to [facility] from [place] on 10/30 for chest pain. PMH is [...] which brought her to the hospital. At [place], chest xray showed mild fluid overload and [...] evacuation procedure. She is on fentanyl patches, [place], and will receive a one time dose of IVMorphine to control the pain. Patient is hemodynamically stable at this time. She is cleared for discharge from a medicine standpoint. Patient is to follow up with Cardiology and Urology in an outpatient setting. * Pre-Sedation Documentation - Janet Soto MD - 11/02/2024 1:31 PM EDT Patient: Juan Kong Procedure Information Date/Time: 11/02/24 9134 Procedure: Coronary angiography (Bilateral) Location: [facility] CUMULATIVE EFFECTS ANALYST 3 / [facility] VASCULAR LAB (Cath) Providers: Wali Collins [...] attending. Additional Equipment Requests Janet Soto MD Steward/Stewardess Second Class, PGY-4 [facility] 11/02/24 1:31 PM Cosigned by Wali Collins MD at 11/02/2024 3:13 PM EDT * Assessment & Plan Note - Ky Ritter MD - 11/02/2024 1:29 PM EDT Associated Problem(s): NSTEMI (non-ST elevated myocardial infarction) ([facility]) -Trop 390 at OSH, now downward trending [...] pain today patient brought urgently back to Food Service Director * Assessment & Plan Note - Ky [...] pain today patient brought urgently back to Food Service Director * Assessment & Plan Note - Ky Ritter MD - 11/02/2024 1:29 PM EDT Associated Problem(s): Prolonged Q-T interval on ECG -QT mildly prolonged; read as 492 ms however calculation revealing 429 -Okay with reglan * Assessment & Plan Note - Ky Ritter MD - 11/02/2024 1:29 PM EDT Associated Problem(s): Type 2 diabetes mellitus without complication, without long-term current useof insulin ([facility]) - Patient currently taking metformin at home [...] injury Outcome: Adequate for Discharge Flowsheets (Taken 11/02/2024 0739) Free from fall injury: Assess patient frequently [...] Status Interested Does the patient have a trimming caser assigned to them through their insurance? Yes [...] with benadry and Tigan. Pain controlled with [place] and tramadol. * Care Plan - Patricia [...] with appropriate resources Outcome: Progressing Flowsheets (Taken 11/01/2024 075) Discharge to home or other facility with [...] Date/Time: 11/01/24 1300 Procedure: Coronary angiography Location: [facility] CUMULATIVE EFFECTS ANALYST 3 / [facility]ASCULAR [facility] (Cath) Providers: Mitchell Agustin [...] attending. Additional Equipment Requests Janet Soto MD Steward/Stewardess Second Class, PGY-4 [facility] 11/01/24 12:12 PM Cosigned by Mitchell Agustin MD at 11/01/2024 12:42 PM EDT * Assessment & Plan Note - Ky Ritter MD - 11/01/2024 11:57 AM EDT Associated Problem(s): NSTEMI (non-ST elevated myocardial infarction) ([facility]/HCC) -Trop 390 at OSH, now downward trending [...] Date/Time: 10/31/24 1330 Procedure: Coronary angiography Location: [facility] CUMULATIVE EFFECTS ANALYST 3 / [facility]ASCULAR [facility] (Cath) Providers: Tino Gilmore [...] without complication, without long-term current useof insulin ([facility]) - Patient currently taking metformin at home [...] Associated Problem(s): NSTEMI (non-ST elevated myocardial infarction) ([facility]) -Trop 390 at OSH, now downward trending [...] levothyroxine * Assessment & Plan Note - Debibe Luna CNP - 10/30/2024 9:00 PM EDTAssociated Problem(s): Type 2 diabetes mellitus without complication, without long-term current useof insulin ([facility]) - Patient currently taking metformin at home, [...] Care Team (Late st Contact Info) Description 11/28/2024 11:00 AM EDT Follow-Up [facility] Cardiology [address] [address] Wali Collins MD [address] [place] [id number] 12/04/2024 10:00 AM EDT Office Visit [facility] [place] [address] [place] [address] Katie Altamirano MD [address] [place] [address] documented as of this encounter [...] PM EDT NSTEMI (non-ST elevated myocardial infarction) ([facility]/HCC) CORONARY ANGIOGRAPHY Routine 11/01/2024 1:30 PM EDT NSTEMI (non-ST elevated myocardial infarction) ([facility]) ACTIVATED CLOTTING TIME Routine 11/01/2024 1:27 PM [...] - 105 mg/dL 11/07/2024 4:12 PM EDT [facility] ([facility]) Comment:[email or web address] Blood Capillary blood specimen / Unknown 11/07/2024 4:00 PM EDT 11/07/2024 4:12 PM EDT [facility] ([facility]) - 11/07/2024 4:12 PM EDT Waived Testing in the ED is performed under the ED CLIA certificate #[id number]. us Mauricio Garcia MD LAB BLOOD ORDERABLES Final Resu lt Performing Organization Address [facility] Co de Phone Number [facility]) [address] [place] [address] * (ABNORMAL) POCT glucose meter (11/07/2024 11:55 AM EDT) Glucose POC 121(H) 70 - 105 mg/dL 11/07/2024 12:06 PM EDT [facility]) Comment:[email or web address] Blood Capillary blood specimen / Unknown 11/07/2024 11:55 AM EDT 11/07/2024 12:06 PM EDT [facility]) - 11/07/2024 12:06 PM EDT Waived Testing in the ED is performed under the ED CLIA certificate #[id number]. us Mauricio Garcia MD LAB BLOOD ORDERABLES Final Resu lt Performing Organization Address [facility] Co de Phone Number [facility]) [address] [place] [address] * ECG 12 lead (11/07/2024 11:48 AM EDT) Ventricular Rate 91 BPM GE MUSE Atrial Rate 91 BPM GE MUSE TN Interval 134 ms GE MUSE QRS DURATION 88 ms GE MUSE QT Interval 386 ms GE MUSE QTC CALCULATION(BAZE TT) 474 ms GE MUSE P [place] 63 degrees GE MUSE R-[place] 35 degrees GE MUSE T Wave [place] 46 degrees GE MUSE 11/07/2024 11:3 3 [...] Griffin Diaz (102) on 11/07/2024 11:05:14 PM us Mauricio Garcia MD ECG ORDERABLES Final Result Performing Organization Address City/[facility]/ZIP Co de Phone Number GE MUSE * (ABNORMAL) POCT glucose meter (11/07/2024 7:43 AM EDT) Pathologist [facility] Glucose POC 118(H) 70 - 105 mg/dL 11/07/2024 7:58 AM EDT [facility] ([facility]) Comment:[email or web address] Blood Capillary blood specimen / Unknown 11/07/2024 7:43 AM EDT 11/07/2024 7:58 AM EDT Narrative [facility] ([facility]) - 11/07/2024 7:58 AM EDT Waived Testing in the ED is performed under the ED CLIA certificate #[id number]. us Mauricio Garcia MD LAB BLOOD ORDERABLES Final Resu lt [facility] ([facility]) [address] [place] [address] * (ABNORMAL) CBC (11/07/2024 6:27 AM EDT) Auto WBC 4.21 4.00 - 10.60 10*3/uL 11/07/2024 7:01 AM EDT [facility] ([facility]) RBC 3.01(L) 3.80 - 5.00 10*6/uL 11/07/2024 7:01 AM EDT [facility] ([facility]) Hemoglobin 9.0(L) 12.0 - 15.0 g/dL 11/07/2024 7:01 AM EDT [facility] ([facility]) Hematocrit 26.9(L) 36.0 - 45.0 % 11/07/2024 7:01 AM EDT [facility] ([facility]) MCV 89.4 82.0 - 98.0 fL 11/07/2024 7:01 AM EDT [facility] ([facility]) MCH 29.9 27.0 - 33.0 pg 11/07/2024 7:01 AM EDT [facility] ([facility]) MCHC 33.5 32.0 - 35.0 g/dL 11/07/2024 7:01 AM EDT [facility] ([facility]) RDW 14.2 11.5 - 15.0 % 11/07/2024 7:01 AM EDT [facility] ([facility]) Platelets 206 150 - 400 10*3/uL 11/07/2024 7:01 AM EDT [facility] ([facility]) Blood Venous blood specimen / Unknown Existing Catheter / Unknown 11/07/2024 6:27 AM EDT 11/07/2024 6:45 AM EDT us Dominic Chappell DO LAB BLOOD ORDERABLES Final Re sult [facility]) [address], [place] [id number] * High Sensitivity Troponin I (11/07/2024 4:50 AM EDT) High Sensitivity Troponin I 10 <15 ng/L 11/07/2024 1:15 PM EDT [facility]) Blood Venous blood specimen / Unknown Existing Catheter / Unknown 11/07/2024 4:50 AM EDT 11/07/2024 5:24 AM EDT us Mauricio Garcia MD LAB BLOOD ORDERABLES Final Resu lt Performing Organization Address City/[facility] Co de Phone Number [facility] ([facility]) [address] [place] [address] * Calcium, ionized (11/07/2024 4:50 AM EDT) Calcium, Ion 1.16 1.15 - 1.33 mmol/L 11/07/2024 5:43 AM EDT [facility] RESPIRATORY THERAPY Blood Venous blood specimen / Unknown Existing Catheter / Unknown 11/07/2024 4:50 AM EDT 11/07/2024 5:38 AM EDT us Eduarda Bravo PA-C LAB BLOOD ORDERABLES Final Resu lt Performing Organization Address [facility] Co de Phone Number [facility] RESPIRATORY THERAPY [address] [place] [address], [place] * Phosphorus (11/07/2024 4:50 AM EDT) Phosphorus 4.7 2.5 - 5.0 mg/dL 11/07/2024 5:52 AM EDT [facility] ([facility]) Blood Venous blood specimen / Unknown Existing Catheter / Unknown 11/07/2024 4:50 AM EDT 11/07/2024 5:24 AM EDT us Rosa Willoughby PA-C LAB BLOOD ORDERABLES Final R esult Performing Organization Address City/[facility]/ZIP Co de Phone Number [facility] ([facility]) [address] [place] [address] * Magnesium (11/07/2024 4:50 AM EDT) Magnesium 2.1 1.9 - 2.7 mg/dL 11/07/2024 5:52 AM EDT [facility] ([facility]) Blood Venous blood specimen / Unknown Existing Catheter / Unknown 11/07/2024 4:50 AM EDT 11/07/2024 5:24 AM EDT us Rosa Willoughby PA-C LAB BLOOD ORDERABLES Final R esult [facility] ([facility]) [address] [place] [address] * (ABNORMAL) Basic metabolic panel (11/07/2024 4:50 AM EDT) Sodium 139 136 - 145 mmol/L 11/07/2024 5:52 AM EDT [facility] ([facility]) Potassium 3.9 3.5 - 5.1 mmol/L 11/07/2024 5:52 AM EDT [facility] ([facility]) Chloride 105 98 - 107 mmol/L 11/07/2024 5:52 AM EDT [facility] ([facility]) CO2 28 21 - 31 mmol/L 11/07/2024 5:52 AM EDT [facility] ([facility]) BUN 14 7 - 25 mg/dL 11/07/2024 5:52 AM EDT [facility] ([facility]) Creatinine 0.52(L) 0.60 - 1.20 mg/dL 11/07/2024 5:52 AM EDT [facility] ([facility]) Glucose 87 70 - 100 mg/dL 11/07/2024 5:52 AM EDT [facility] ([facility]) Calcium 8.3(L) 8.6 - 10.3 mg/dL 11/07/2024 5:52 AM EDT [facility] ([facility]) Anion Gap 10 7 - 20 mmol/L 11/07/2024 5:52 AM EDT [facility] ([facility]) eGFR 124.2 >60.0 mL/min/1. 73m*2 11/07/2024 5:52 AM EDT [facility] ([facility]) Comment:[facility] s estimated glomerular filtration rate (eGFR) will [...] BUN/Creatinine Ratio 26.9 10/17 5:52 AM EDT [facility] ([facility]) Blood Venous blood specimen / Unknown Existing Catheter / Unknown 11/07/2024 4:50 AM EDT 11/07/2024 5:24 AM EDT us Rosa Willoughby PA-C LAB BLOOD ORDERABLES Final R esult Performing Organization Address City/[facility]/ZIP Co de Phone Number [facility]) [address] [place], [place] [id number] * (ABNORMAL) POCT glucose meter (11/06/2024 10:59 PM EDT) Glucose POC 134(H) 70 - 105 mg/dL 11/06/2024 11:10 PM EDT [facility] ([facility]) Comment:[email or web address] Blood Capillary blood specimen / Unknown 11/06/2024 10:59 PM EDT 11/06/2024 11:10 PM EDT Narrative [facility]) - 11/06/2024 11:10 PM EDT Waived Testing in the ED is performed under the ED CLIA certificate #[id number]. us Jose Angel Fox MD LAB BLOOD ORDERABLES Final Resu lt Performing Organization Address City/[facility]/ZIP Co de Phone Number [facility]) [address] [place] [address] * (ABNORMAL) POCT glucose meter (11/06/2024 8:22 PM EDT) Glucose POC 125(H) 70 - 105 mg/dL 11/06/2024 8:33 PM EDT [facility] ([facility]) Comment: Blood Capillary blood specimen / Unknown 11/06/2024 8:22 PM EDT 11/06/2024 8:33 PM EDT Narrative [facility] ([facility]) - 11/06/2024 8:33 PM EDT Waived Testing in the ED is performed under the ED CLIA certificate #[id number]. Jose Angel Fox MD LAB BLOOD ORDERABLES Final Resu lt Performing Organization Address City/[facility]/ZIP Co de Phone Number [facility] ([facility]) [address] [place] [address] * (ABNORMAL) POCT glucose meter (11/06/2024 5:05 PM EDT) Glucose POC 135(H) 70 - 105 mg/dL 11/06/2024 5:16 PM EDT [facility]) Comment:[email or web address] Blood Capillary blood specimen / Unknown 11/06/2024 5:05 PM EDT 11/06/2024 5:16 PM EDT Narrative [facility]) - 11/06/2024 5:16 PM EDT Waived Testing in the ED is performed under the ED CLIA certificate #[id number]. us Jose Angel Fox MD LAB BLOOD ORDERABLES Final Resu lt Performing Organization Address [facility] Co de Phone Number [facility] ([facility]) [address] [place] [address] * Calcium, ionized (11/06/2024 12:24 PM EDT) Calcium, Ion 1.15 1.15 - 1.33 mmol/L 11/06/2024 12:55 PM EDT [facility] RES[facility]ERAP[facility] Blood Venous blood specimen / Unknown Existing Catheter / Unknown 11/06/2024 12:24 PM EDT 11/06/2024 12:52 PM EDT Eduarda Bravo PA-C LAB BLOOD ORDERABLES Final Resu lt Performing Organization Address City/[facility]/ZIP Co de Phone Number [facility] RESPIRATORY THERAPY [address] [place] [address], [place] * (ABNORMAL) POCT glucose meter (11/06/2024 12:19 PM EDT) Glucose POC 108(H) 70 - 105 mg/dL 11/06/2024 12:30 PM EDT [facility] ([facility]) Comment:[email or web address] Blood Capillary blood specimen / Unknown 11/06/2024 12:19 PM EDT 11/06/2024 12:30 PM EDT Narrative [facility] ([facility]) - 11/06/2024 12:30 PM EDT Waived Testing in the ED is performed under the ED CLIA certificate #[id number]. us Jose Angel Fox MD LAB BLOOD ORDERABLES Final Resu lt [facility] ([facility]) [address] [place] [address] * Vasc Us Lower Extremity Pseudoaneurysm Duplex Right (11/06/2024 [...] POCT glucose meter (11/06/2024 7:52 AM EDT) Pathologist [facility] Glucose POC 99 70 - 105 mg/dL 11/06/2024 8:03 AM EDT [facility] ([facility]) Comment:[email or web address] Blood Capillary blood specimen / Unknown 11/06/2024 7:52 AM EDT 11/06/2024 8:03 AM EDT Narrative [facility] ([facility]) - 11/06/2024 8:03 AM EDT Waived Testing in the ED is performed under the ED CLIA certificate #[id number]. us Jose Anegl Fox MD LAB BLOOD ORDERABLES Final Resu lt [facility] ([facility]) [address] [place] [address] * (ABNORMAL) CBC auto differential (11/06/2024 5:50 AM EDT) Auto WBC 3.50(L) 4.00 - 10.60 10*3/uL 11/06/2024 6:05 AM EDT [facility] ([facility]) RBC 2.99(L) 3.80 - 5.00 10*6/uL 11/06/2024 6:05 AM EDT [facility] ([facility]) Hemoglobin 8.8(L) 12.0 - 15.0 g/dL 11/06/2024 6:05 AM EDT [facility] ([facility]) Hematocrit 26.6(L) 36.0 - 45.0 % 11/06/2024 6:05 AM EDT [facility] ([facility]) MCV 89.0 82.0 - 98.0 fL 11/06/2024 6:05 AM EDT [facility] ([facility]) MCH 29.4 27.0 - 33.0 pg 11/06/2024 6:05 AM EDT [facility] ([facility]) MCHC 33.1 32.0 - 35.0 g/dL 11/06/2024 6:05 AM EDT [facility] ([facility]) RDW 13.9 11.5 - 15.0 % 11/06/2024 6:05 AM EDT [facility] ([facility]) Neutrophils % 42.5 40.0 - 72.0 % 11/06/2024 6:05 AM EDT [facility] ([facility]) Lymphocytes % 40.0 20.0 - 45.0 % 11/06/2024 6:05 AM EDT [facility] ([facility]) Monocytes % 10.0 5.0 - 12.0 % 11/06/2024 6:05 AM EDT [facility] ([facility]) Eosinophils % 6.3(H) 0.0 - 6.0 % 11/06/2024 6:05 AM EDT [facility] ([facility]) Basophils % 0.9 0.0 - 1.0 % 11/06/2024 6:05 AM EDT [facility] ([facility]) Neutrophils Absolute 1.49(L) 1.60 - 7.60 10*3/uL 11/06/2024 6:05 AM EDT [facility] ([facility]) Lymphocytes Absolute 1.40 1.20 - 4.00 10*3/uL 11/06/2024 6:05 AM EDT [facility] ([facility]) Monocytes Absolute 0.35 0.10 - 1.00 10*3/uL 11/06/2024 6:05 AM EDT [facility] ([facility]) Eosinophils Absolute 0.22 0.00 - 0.50 10*3/uL 11/06/2024 6:05 AM EDT [facility] ([facility]) Basophils Absolute 0.03 0.00 - 0.20 10*3/uL 11/06/2024 6:05 AM EDT [facility] ([facility]) Platelets 185 150 - 400 10*3/uL 11/06/2024 6:05 AM EDT [facility] ([facility]) nRBC % 0.0 0 % 11/06/2024 6:05 AM T [facility] ([facility]) Immature Granulocytes % 0.3 0.0 - 1.0 % 11/06/2024 6:05 AM EDT [facility] ([facility]) Immature Granulocytes Absolute 0.01 0.00 - 0.20 10*3/uL 11/06/2024 6:05 AM T [facility] ([facility]) Blood Venous blood specimen / Unknown Existing Catheter / Unknown 11/06/2024 5:50 AM EDT 11/06/2024 5:56 AM EDT us Jose Angel Fox MD LAB BLOOD ORDERABLES Final Resu lt [facility] ([facility]) [address] [place], [place] [id number] * Phosphorus (11/06/2024 5:50 AM EDT) Phosphorus 4.7 2.5 - 5.0 mg/dL 11/06/2024 6:52 AM EDT [facility] ([facility]) Blood Venous blood specimen / Unknown Existing Catheter / Unknown 11/06/2024 5:50 AM EDT 11/06/2024 5:56 AM EDT us Rosa Willoughby PA-C LAB BLOOD ORDERABLES Final R esult Performing Organization Address City/[facility]/ZIP Co de Phone Number [facility]) [address] [place] [address] * Magnesium (11/06/2024 5:50 AM EDT) Magnesium 1.9 1.9 - 2.7 mg/dL 11/06/2024 6:52 AM EDT [facility] ([facility]) Blood Venous blood specimen / Unknown Existing Catheter / Unknown 11/06/2024 5:50 AM EDT 11/06/2024 5:56 AM EDT us Rosa Willoughby PA-C LAB BLOOD ORDERABLES Final R esult [facility]) [address] [place] [id number] * (ABNORMAL) Basic metabolic panel (11/06/2024 5:50 AM EDT) Sodium 139 136 - 145 mmol/L 11/06/2024 6:52 AM EDT [facility] ([facility]) Potassium 3.9 3.5 - 5.1 mmol/L 11/06/2024 6:52 AM EDT [facility] ([facility]) Chloride 105 98 - 107 mmol/L 11/06/2024 6:52 AM EDT [facility] ([facility]) CO2 27 21 - 31 mmol/L 11/06/2024 6:52 AM EDT [facility] ([facility]) BUN 12 7 - 25 mg/dL 11/06/2024 6:52 AM EDT [facility] ([facility]) Creatinine 0.61 0.60 - 1.20 mg/dL 11/06/2024 6:52 AM EDT [facility] ([facility]) Glucose 85 70 - 100 mg/dL 11/06/2024 6:52 AM EDT [facility] ([facility]) Calcium 8.4(L) 8.6 - 10.3 mg/dL 11/06/2024 6:52 AM EDT [facility] ([facility]) Anion Gap 11 7 - 20 mmol/L 11/06/2024 6:52 AM EDT [facility] ([facility]) eGFR 119.5 >60.0 mL/min/1. 73m*2 11/06/2024 6:52 AM EDT [facility] ([facility]) Comment:[facility] s estimated glomerular filtration rate (eGFR) will [...] BUN/Creatinine Ratio 19.7 10/17 6:52 AM EDT [facility] ([facility]) Blood Venous blood specimen / Unknown Existing Catheter / Unknown 11/06/2024 5:50 AM EDT 11/06/2024 5:56 AM EDT us Rosa Willoughby PA-C LAB BLOOD ORDERABLES Final R esult [facility]) [address] [place] [address] * (ABNORMAL) POCT glucose meter (11/05/2024 10:07 PM EDT) Glucose POC 118(H) 70 - 105 mg/dL 11/05/2024 10:24 PM EDT [facility] ([facility]) Comment:[email or web address] Blood Capillary blood specimen / Unknown 11/05/2024 10:07 PM EDT 11/05/2024 10:24 PM EDT [facility] ([facility]) - 11/05/2024 10:24 PM EDT Waived Testing in the ED is performed under the ED CLIA certificate #[id number]. Jose Angel Fox MD LAB BLOOD ORDERABLES Final Resu lt [facility]) [address] [place] [address] * POCT glucose meter (11/05/2024 4:37 PM EDT) Glucose POC 96 70 - 105 mg/dL 11/05/2024 4:48 PM EDT [facility] ([facility]) Comment:[email or web address] Blood Capillary blood specimen / Unknown 11/05/2024 4:37 PM EDT 11/05/2024 4:48 PM EDT [facility] ([facility]) - 11/05/2024 4:48 PM EDT Waived Testing in the ED is performed under the ED CLIA certificate #[id number]. us Jose Angel Fox MD LAB BLOOD ORDERABLES Final Resu lt [facility] ([facility]) [address] [place], [place] [id number] * (ABNORMAL) POCT glucose meter (11/05/2024 11:36 AM EDT) Glucose POC 123(H) 70 - 105 mg/dL 11/05/2024 11:47 AM EDT [facility] ([facility]) Comment:[email or web address] Blood Capillary blood specimen / Unknown 11/05/2024 11:36 AM EDT 11/05/2024 11:47 AM EDT Narrative [facility]) - 11/05/2024 11:47 AM EDT Waived Testing in the ED is performed under the ED CLIA certificate #[id number]. us Jose Angel Fox MD LAB BLOOD ORDERABLES Final Resu lt Performing Organization Address City/[facility]/ZIP Co de Phone Number [facility]) [address] [place] [address] * (ABNORMAL) Hemoglobin and hematocrit, blood (11/05/2024 9:01 AM EDT) Hemoglobin 9.4(L) 12.0 - 15.0 g/dL 11/05/2024 9:24 AM EDT [facility]) Hematocrit 27.5(L) 36.0 - 45.0 % 11/05/2024 9:24 AM EDT [facility] ([facility]) Blood Venous blood specimen / Unknown Existing Catheter / Unknown 11/05/2024 9:01 AM EDT 11/05/2024 9:09 AM EDT us Tomasa Disla MD LAB BLOOD ORDERABLES Fin al Result Performing Organization Address [facility] Co de Phone Number [facility]) [address] [place] [phone] * (ABNORMAL) POCT glucose meter (11/05/2024 8:36 AM EDT) Glucose POC 120(H) 70 - 105 mg/dL 11/05/2024 8:46 AM EDT [facility]) Comment:[email or web address] Blood Capillary blood specimen / Unknown 11/05/2024 8:36 AM EDT 11/05/2024 8:46 AM EDT Narrative [facility]) - 11/05/2024 8:46 AM EDT Waived Testing in the ED is performed under the ED CLIA certificate #[id number]. us Jose Angel Fox MD LAB BLOOD ORDERABLES Final Resu lt Performing Organization Address City/[facility]/ZIP Co de Phone Number [facility] ([facility]) [address] [place] [address] * Phosphorus (11/05/2024 3:48 AM EDT) Phosphorus 4.0 2.5 - 5.0 mg/dL 11/05/2024 4:19 AM EDT [facility] ([facility]) Blood Venous blood specimen / Unknown Existing Catheter / Unknown 11/05/2024 3:48 AM EDT 11/05/2024 3:56 AM EDT us Rosa Willoughby PA-C LAB BLOOD ORDERABLES Final R esult Performing Organization Address [facility]/ZIP Co de Phone Number [facility] ([facility]) [address] [place], [place] [id number] * Magnesium (11/05/2024 3:48 AM EDT) Magnesium 1.9 1.9 - 2.7 mg/dL 11/05/2024 4:19 AM EDT [facility] ([facility]) Blood Venous blood specimen / Unknown Existing Catheter / Unknown 11/05/2024 3:48 AM EDT 11/05/2024 3:56 AM EDT us Rosa Willoughby PA-C LAB BLOOD ORDERABLES Final R esult Performing Organization Address City/[facility]/ZIP Co de Phone Number [facility] ([facility]) [address] [place], [place] [id number] * (ABNORMAL) Basic metabolic panel (11/05/2024 3:48 AM EDT) Sodium 139 136 - 145 mmol/L 11/05/2024 4:19 AM EDT [facility] ([facility]) Potassium 3.6 3.5 - 5.1 mmol/L 11/05/2024 4:19 AM T [facility] ([facility]) Chloride 107 98 - 107 mmol/L 11/05/2024 4:19 AM T [facility] ([facility]) CO2 28 21 - 31 mmol/L 11/05/2024 4:19 AM T [facility] ([facility]) BUN 11 7 - 25 mg/dL 11/05/2024 4:19 AM [facility] ([facility]) Creatinine 0.48(L) 0.60 - 1.20 mg/dL 11/05/2024 4:19 AM T [facility] ([facility]) Glucose 120(H) 70 - 100 mg/dL 11/05/2024 4:19 AM [facility] ([facility]) Calcium 8.0(L) 8.6 - 10.3 mg/dL 11/05/2024 4:19 AM [facility] ([facility]) Anion Gap 8 7 - 20 mmol/L 11/05/2024 4:19 AM [facility] ([facility]) eGFR 126.6 >60.0 mL/min/1. 73m*2 11/05/2024 4:19 AM [facility] ([facility]) Comment:[facility] s estimated glomerular filtration rate (eGFR) will [...] individuals. BUN/Creatinine Ratio 22.9 10/17 4:19 AM T [facility] ([facility]) Blood Venous blood specimen / Unknown Existing Catheter / Unknown 11/05/2024 3:48 AM EDT 11/05/2024 3:56 AM EDT us Rosa Willoughby PA-C LAB BLOOD ORDERABLES Final R esult [facility] ([facility]) [address] [place] [address] * (ABNORMAL) CBC (11/05/2024 3:48 AM EDT) Auto WBC 3.54(L) 4.00 - 10.60 10*3/uL 11/05/2024 4:23 AM EDT [facility] ([facility]) RBC 2.91(L) 3.80 - 5.00 10*6/uL 11/05/2024 4:23 AM EDT [facility] ([facility]) Hemoglobin 8.6(L) 12.0 - 15.0 g/dL 11/05/2024 4:23 AM EDT [facility] ([facility]) Hematocrit 25.5(L) 36.0 - 45.0 % 11/05/2024 4:23 AM EDT [facility] ([facility]) MCV 87.6 82.0 - 98.0 fL 11/05/2024 4:23 AM EDT [facility] ([facility]) MCH 29.6 27.0 - 33.0 pg 11/05/2024 4:23 AM EDT [facility] ([facility]) MCHC 33.7 32.0 - 35.0 g/dL 11/05/2024 4:23 AM EDT [facility] ([facility]) RDW 14.1 11.5 - 15.0 % 11/05/2024 4:23 AM EDT [facility] ([facility]) Platelets 177 150 - 400 10*3/uL 11/05/2024 4:23 AM EDT [facility] ([facility]) Blood Venous blood specimen / Unknown Existing Catheter / Unknown 11/05/2024 3:48 AM EDT 11/05/2024 3:56 AM EDT us Rosa Willoughby PA-C LAB BLOOD ORDERABLES Final R esult [facility] ([facility]) [address] [place] [address] * Calcium, ionized (11/05/2024 1:00 AM EDT) Calcium, Ion 1.16 1.15 - 1.33 mmol/L 11/05/2024 4:02 AM EDT [facility] Blood Venous blood specimen / Unknown 11/05/2024 1:00 AM EDT 11/05/2024 3:55 AM EDT us Rosa Willoughby PA-C LAB BLOOD ORDERABLES Final R esult [facility] [address] [place] [address], * (ABNORMAL) Hemoglobin and hematocrit, blood (11/05/2024 12:54 AM EDT) Hemoglobin 8.5(L) 12.0 - 15.0 g/dL 11/05/2024 1:54 AM EDT [facility] ([facility]) Hematocrit 24.9(L) 36.0 - 45.0 % 11/05/2024 1:54 AM EDT [facility] ([facility]) Blood Venous blood specimen / Unknown Existing Catheter / Unknown 11/05/2024 12:54 AM EDT 11/05/2024 1:19 AM EDT Tomasa Disla MD LAB BLOOD ORDERABLES Fin al Result [facility] ([facility]) [address] [place] [address] * POCT glucose meter (11/04/2024 10:33 PM EDT) Glucose POC 102 70 - 105 mg/dL 11/04/2024 10:44 PM EDT [facility] ([facility]) Comment:[email or web address] Blood Capillary blood specimen / Unknown 11/04/2024 10:33 PM EDT 11/04/2024 10:44 PM EDT Narrative [facility] ([facility]) - 11/04/2024 10:44 PM EDT Waived Testing in the ED is performed under the ED CLIA certificate #[id number]. us Jose Angel Fox MD LAB BLOOD ORDERABLES Final Resu lt [facility] ([facility]) [address] [place] [address] * (ABNORMAL) Basic metabolic panel (11/04/2024 8:17 PM EDT) Sodium 137 136 - 145 mmol/L 11/04/2024 8:42 PM EDT [facility] ([facility]) Potassium 4.0 3.5 - 5.1 mmol/L 11/04/2024 8:42 PM EDT [facility] ([facility]) Chloride 106 98 - 107 mmol/L 11/04/2024 8:42 PM EDT [facility] ([facility]) CO2 27 21 - 31 mmol/L 11/04/2024 8:42 PM EDT [facility] ([facility]) BUN 14 7 - 25 mg/dL 11/04/2024 8:42 PM EDT [facility] ([facility]) Creatinine 0.48(L) 0.60 - 1.20 mg/dL 11/04/2024 8:42 PM EDT [facility] ([facility]) Glucose 82 70 - 100 mg/dL 11/04/2024 8:42 PM EDT [facility] ([facility]) Calcium 7.8(L) 8.6 - 10.3 mg/dL 11/04/2024 8:42 PM EDT [facility] ([facility]) Anion Gap 8 7 - 20 mmol/L 11/04/2024 8:42 PM EDT [facility] ([facility]) eGFR 126.6 >60.0 mL/min/1. 73m*2 11/04/2024 8:42 PM EDT [facility] ([facility]) Comment:[facility] s estimated glomerular filtration rate (eGFR) will [...] BUN/Creatinine Ratio 29.2 10/17 8:42 PM EDT [facility] ([facility]) Blood Venous blood specimen / Unknown Existing Catheter / Unknown 11/04/2024 8:17 PM EDT 11/04/2024 8:17 PM EDT Audie Sylvester PA-C LAB BLOOD ORDERABLES F inal Result Performing Organization Address City/[facility]/ZIP Co de Phone Number [facility]) [address] [place] [address] * (ABNORMAL) Hemoglobin and hematocrit, blood (11/04/2024 8:13 PM EDT) Hemoglobin 9.0(L) 12.0 - 15.0 g/dL 11/04/2024 8:24 PM EDT [facility]) Hematocrit 26.7(L) 36.0 - 45.0 % 11/04/2024 8:24 PM EDT [facility]) Blood Venous blood specimen / Unknown Existing Catheter / Unknown 11/04/2024 8:13 PM EDT 11/04/2024 8:17 PM EDT us Tomasa Disla MD LAB BLOOD ORDERABLES Fin al Result Performing Organization Address City/[facility]/ZIP Co de Phone Number [facility]) [address] [place] [address] * (ABNORMAL) POCT glucose meter (11/04/2024 5:12 PM EDT) Glucose POC 147(H) 70 - 105 mg/dL 11/04/2024 5:23 PM EDT [facility]) Comment:[email or web address] Blood Capillary blood specimen / Unknown 11/04/2024 5:12 PM EDT 11/04/2024 5:23 PM EDT Narrative [facility] ([facility]) - 11/04/2024 5:23 PM EDT Waived Testing in the ED is performed under the ED CLIA certificate #[id number]. Jose Angel Fox MD LAB BLOOD ORDERABLES Final Resu lt [facility] ([facility]) [address] [place] [address] * Transfuse RBC (11/04/2024 4:57 PM EDT) Tomasa Disla MD BLOOD TRANSFUSION ORDERA BLES Final Result * Transfuse RBC: 1 Units (11/04/2024 4:57 PM EDT) Tomasa Disla MD BLOOD TRANSFUSION ORDERA BLES Final Result * ECG 12 lead (11/04/2024 1:59 PM EDT) [facility] Ventricular Rate 100 BPM GE MUSE Atrial Rate 100 BPM GE MUSE TN Interval 132 ms GE MUSE QRS DURATION 94 ms GE MUSE QT Interval 382 ms GE MUSE QTC CALCULATION(BAZE TT) 492 ms GE MUSE P [place] 60 degrees GE MUSE R-[place] 34 degrees GE MUSE T Wave [place] 58 degrees GE MUSE 11/04/2024 1:40 PM [...] Erlin Geller (79) on 11/05/2024 12:04:52 AM us Tomasa Disla MD ECG ORDERABLES Final Re sult GE JOSE * (ABNORMAL) Hemoglobin and hematocrit, blood (11/04/2024 1:38 PM EDT) Hemoglobin 7.9(L) 12.0 - 15.0 g/dL 11/04/2024 1:49 PM EDT [facility] ([facility]) Hematocrit 23.9(L) 36.0 - 45.0 % 11/04/2024 1:49 PM EDT [facility] ([facility]) Blood Venous blood specimen / Unknown Existing Catheter / Unknown 11/04/2024 1:38 PM EDT 11/04/2024 1:43 PM EDT Tomasa Disla MD LAB BLOOD ORDERABLES Fin al Result [facility] ([facility]) [address] [place] [address] * (ABNORMAL) Basic metabolic panel (11/04/2024 1:38 PM EDT) Sodium 135(L) 136 - 145 mmol/L 11/04/2024 2:09 PM EDT [facility] ([facility]) Potassium 4.2 3.5 - 5.1 mmol/L 11/04/2024 2:09 PM EDT [facility] ([facility]) Chloride 106 98 - 107 mmol/L 11/04/2024 2:09 PM EDT [facility] ([facility]) CO2 24 21 - 31 mmol/L 11/04/2024 2:09 PM EDT [facility] ([facility]) BUN 13 7 - 25 mg/dL 11/04/2024 2:09 PM EDT [facility] ([facility]) Creatinine 0.61 0.60 - 1.20 mg/dL 11/04/2024 2:09 PM EDT [facility] ([facility]) Glucose 191(H) 70 - 100 mg/dL 11/04/2024 2:09 PM EDT [facility] ([facility]) Calcium 7.6(L) 8.6 - 10.3 mg/dL 11/04/2024 2:09 PM EDT [facility] ([facility]) Anion Gap 9 7 - 20 mmol/L 11/04/2024 2:09 PM EDT [facility] ([facility]) eGFR 119.5 >60.0 mL/min/1. 73m*2 11/04/2024 2:09 PM EDT [facility] ([facility]) Comment:[facility] s estimated glomerular filtration rate (eGFR) will [...] individuals. BUN/Creatinine Ratio 21.3 10/17 2:09 PM EDT [facility] ([facility]) Blood Venous blood specimen / Unknown Existing Catheter / Unknown 11/04/2024 1:38 PM EDT 11/04/2024 1:43 PM EDT Tomasa Disla MD LAB BLOOD ORDERABLES Fin al Result [facility] ([facility]) [address] [place] [address] * (ABNORMAL) High Sensitivity Troponin I (11/04/2024 1:38 PM EDT) High Sensitivity Troponin I 36(H) <15 ng/L 11/04/2024 2:13 PM EDT [facility] ([facility]) Blood Venous blood specimen / Unknown Existing Catheter / Unknown 11/04/2024 1:38 PM EDT 11/04/2024 1:43 PM EDT Tomasa Disla MD LAB BLOOD ORDERABLES Fin al Result [facility] ([facility]) [address] [place] [address] * (ABNORMAL) POCT glucose meter (11/04/2024 1:06 PM EDT) [facility] Signature Glucose POC 125(H) 70 - 105 mg/dL 11/04/2024 1:19 PM EDT [facility] ([facility]) Comment:[email or web address] Blood Capillary blood specimen / Unknown 11/04/2024 1:06 PM EDT 11/04/2024 1:19 PM EDT Narrative [facility] ([facility]) - 11/04/2024 1:19 PM EDT Waived Testing in the ED is performed under the ED CLIA certificate #[id number]. us Jose Angel Fox MD LAB BLOOD ORDERABLES Final Resu lt Performing Organization Address [facility]/ZIP Co de Phone Number [facility] ([facility]) [address] [place] [address] * CTA Abdomen Pelvis W IV Contrast [...] - 105 mg/dL 11/04/2024 9:31 AM EDT [facility] ([facility]) Comment:[email or web address] Blood Capillary blood specimen / Unknown 11/04/2024 9:20 AM EDT 11/04/2024 9:31 AM EDT Narrative [facility] ([facility]) - 11/04/2024 9:31 AM EDT Waived Testing in the ED is performed under the ED CLIA certificate #[id number]. us Jose Angel Fox MD LAB BLOOD ORDERABLES Final Resu lt [facility] ([facility]) [address] [place] [address] * (ABNORMAL) POCT glucose meter (11/04/2024 5:10 AM EDT) Glucose POC 146(H) 70 - 105 mg/dL 11/04/2024 5:21 AM EDT [facility] ([facility]) Comment:[email or web address] Blood Capillary blood specimen / Unknown 11/04/2024 5:10 AM EDT 11/04/2024 5:21 AM EDT Narrative [facility] ([facility]) - 11/04/2024 5:21 AM EDT Waived Testing in the ED is performed under the ED CLIA certificate #[id number]. us Ky Ritter MD LAB BLOOD ORDERABLES Final Re sult [facility]) [address] [place] [address] * Phosphorus (11/04/2024 5:05 AM EDT) Phosphorus 3.3 2.5 - 5.0 mg/dL 11/04/2024 6:27 AM EDT [facility] ([facility]) Blood Venous blood specimen / Unknown Existing Catheter / Unknown 11/04/2024 5:05 AM EDT 11/04/2024 5:08 AM EDT us Rosa Willoughby PA-C LAB BLOOD ORDERABLES Final R esult [facility]) [address] [place] [address] * Magnesium (11/04/2024 5:05 AM EDT) Magnesium 1.9 1.9 - 2.7 mg/dL 11/04/2024 6:27 AM EDT [facility] ([facility]) Blood Venous blood specimen / Unknown Existing Catheter / Unknown 11/04/2024 5:05 AM EDT 11/04/2024 5:08 AM EDT us Rosa Willoughby PA-C LAB BLOOD ORDERABLES Final R esult [facility] ([facility]) [address] [place], [place] [id number] * (ABNORMAL) Basic metabolic panel (11/04/2024 5:05 AM EDT) Sodium 140 136 - 145 mmol/L 11/04/2024 6:27 AM EDT [facility] ([facility]) Potassium 3.6 3.5 - 5.1 mmol/L 11/04/2024 6:27 AM EDT [facility] ([facility]) Chloride 108(H) 98 - 107 mmol/L 11/04/2024 6:27 AM EDT [facility] ([facility]) CO2 28 21 - 31 mmol/L 11/04/2024 6:27 AM EDT [facility] ([facility]) BUN 9 7 - 25 mg/dL 11/04/2024 6:27 AM EDT [facility] ([facility]) Creatinine 0.45(L) 0.60 - 1.20 mg/dL 11/04/2024 6:27 AM EDT [facility] ([facility]) Glucose 128(H) 70 - 100 mg/dL 11/04/2024 6:27 AM EDT [facility] ([facility]) Calcium 7.6(L) 8.6 - 10.3 mg/dL 11/04/2024 6:27 AM EDT [facility] ([facility]) Anion Gap 8 7 - 20 mmol/L 11/04/2024 6:27 AM EDT [facility] ([facility]) eGFR 128.6 >60.0 mL/min/1. 73m*2 11/04/2024 6:27 AM EDT [facility] ([facility]) Comment:[facility] s estimated glomerular filtration rate (eGFR) will [...] BUN/Creatinine Ratio 20.0 10/17 6:27 AM EDT [facility] ([facility]) Blood Venous blood specimen / Unknown Existing Catheter / Unknown 11/04/2024 5:05 AM EDT 11/04/2024 5:08 AM EDT us Rosa Willoughby PA-C LAB BLOOD ORDERABLES Final R esult [facility]) [address] [place] [address] * (ABNORMAL) CBC (11/04/2024 5:05 AM EDT) Auto WBC 3.79(L) 4.00 - 10.60 10*3/uL 11/04/2024 5:17 AM EDT [facility] ([facility]) RBC 2.66(L) 3.80 - 5.00 10*6/uL 11/04/2024 5:17 AM EDT [facility] ([facility]) Hemoglobin 8.0(L) 12.0 - 15.0 g/dL 11/04/2024 5:17 AM EDT [facility] ([facility]) Hematocrit 23.7(L) 36.0 - 45.0 % 11/04/2024 5:17 AM EDT [facility] ([facility]) MCV 89.1 82.0 - 98.0 fL 11/04/2024 5:17 AM EDT [facility] ([facility]) MCH 30.1 27.0 - 33.0 pg 11/04/2024 5:17 AM EDT [facility] ([facility]) MCHC 33.8 32.0 - 35.0 g/dL 11/04/2024 5:17 AM EDT [facility] ([facility]) RDW 13.9 11.5 - 15.0 % 11/04/2024 5:17 AM EDT [facility] ([facility]) Platelets 185 150 - 400 10*3/uL 11/04/2024 5:17 AM EDT [facility] ([facility]) Blood Venous blood specimen / Unknown Existing Catheter / Unknown 11/04/2024 5:05 AM EDT 11/04/2024 5:08 AM EDT us Rosa Willoughby PA-C LAB BLOOD ORDERABLES Final R esult [facility] ([facility]) [address] [place] [address] * (ABNORMAL) Calcium, ionized (11/04/2024 5:05 AM EDT) Calcium, Ion 1.12(L) 1.15 - 1.33 mmol/L 11/04/2024 5:15 AM EDT [facility]AT[facility]ERAP[facility] Blood Venous blood specimen / Unknown Existing Catheter / Unknown 11/04/2024 5:05 AM EDT 11/04/2024 5:12 AM EDT us Rosa Willoughby PA-C LAB BLOOD ORDERABLES Final R esult [facility] [address] [place] [address], [place] * (ABNORMAL) POCT glucose meter (11/04/2024 12:12 AM EDT) Glucose POC 190(H) 70 - 105 mg/dL 11/04/2024 12:23 AM EDT [facility] ([facility]) Comment:[email or web address] Blood Capillary blood specimen / Unknown 11/04/2024 12:12 AM EDT 11/04/2024 12:23 AM EDT Narrative [facility] ([facility]) - 11/04/2024 12:23 AM EDT Waived Testing in the ED is performed under the ED CLIA certificate #[id number]. us Ky Ritter MD LAB BLOOD ORDERABLES Final Re sult Performing Organization Address City/[facility]/ZIP Co de Phone Number [facility] ([facility]) [address] [place] [address] * (ABNORMAL) Hemoglobin and hematocrit, blood (11/04/2024 12:09 AM EDT) Hemoglobin 8.0(L) 12.0 - 15.0 g/dL 11/04/2024 12:56 AM EDT [facility] ([facility]) Hematocrit 23.5(L) 36.0 - 45.0 % 11/04/2024 12:56 AM EDT [facility] ([facility]) Blood Venous blood specimen / Unknown Existing Catheter / Unknown 11/04/2024 12:09 AM EDT 11/04/2024 12:13 AM EDT Sid Cruz PA-C LAB BLOOD ORDERABLES Final Result Performing Organization Address [facility]/ZIP Co de Phone Number [facility] ([facility]) [address] [place] [address] * (ABNORMAL) POCT glucose meter (11/03/2024 9:52 PM EDT) Glucose POC 130(H) 70 - 105 mg/dL 11/03/2024 10:03 PM EDT [facility] ([facility]) Comment:[email or web address] Blood Capillary blood specimen / Unknown 11/03/2024 9:52 PM EDT 11/03/2024 10:03 PM EDT Narrative [facility] ([facility]) - 11/03/2024 10:03 PM EDT Waived Testing in the ED is performed under the ED CLIA certificate #[id number]. Ky Ritter MD LAB BLOOD ORDERABLES Final Re sult Performing Organization Address City/[facility]/ZIP Co de Phone Number [facility] ([facility]) [address] [place] [address] * (ABNORMAL) Hemoglobin and hematocrit, blood (11/03/2024 6:34 PM EDT) Pathologist [facility] Hemoglobin 8.3(L) 12.0 - 15.0 g/dL 11/03/2024 6:48 PM EDT [facility] ([facility]) Hematocrit 24.9(L) 36.0 - 45.0 % 11/03/2024 6:48 PM EDT [facility] ([facility]) Blood Venous blood specimen / Unknown Existing Catheter / Unknown 11/03/2024 6:34 PM EDT 11/03/2024 6:40 PM EDT Sid Cruz PA-C LAB BLOOD ORDERABLES Final Result [facility]) [address] [place] [address] * POCT glucose meter (11/03/2024 5:35 PM EDT) [facility] Glucose POC 101 70 - 105 mg/dL 11/03/2024 5:45 PM EDT [facility]) Comment:[email or web address] Blood Capillary blood specimen / Unknown 11/03/2024 5:35 PM EDT 11/03/2024 5:45 PM EDT Narrative [facility] ([facility]) - 11/03/2024 5:45 PM EDT Waived Testing in the ED is performed under the ED CLIA certificate #[id number]. Ky Ritter MD LAB BLOOD ORDERABLES Final Re sult [facility]) [address] [place] [address] * (ABNORMAL) CBC (11/03/2024 1:23 PM EDT) Pathologist [facility] Auto WBC 7.60 4.00 - 10.60 10*3/uL 11/03/2024 1:54 PM EDT [facility] ([facility]) RBC 3.01(L) 3.80 - 5.00 10*6/uL 11/03/2024 1:54 PM EDT [facility] ([facility]) Hemoglobin 9.0(L) 12.0 - 15.0 g/dL 11/03/2024 1:54 PM EDT [facility] ([facility]) Hematocrit 26.7(L) 36.0 - 45.0 % 11/03/2024 1:54 PM EDT [facility] ([facility]) MCV 88.7 82.0 - 98.0 fL 11/03/2024 1:54 PM EDT [facility] ([facility]) MCH 29.9 27.0 - 33.0 pg 11/03/2024 1:54 PM EDT [facility] ([facility]) MCHC 33.7 32.0 - 35.0 g/dL 11/03/2024 1:54 PM EDT [facility] ([facility]) RDW 13.9 11.5 - 15.0 % 11/03/2024 1:54 PM EDT [facility] ([facility]) Platelets 253 150 - 400 10*3/uL 11/03/2024 1:54 PM EDT [facility] ([facility]) Blood Venous blood specimen / Unknown Existing Catheter / Unknown 11/03/2024 1:23 PM EDT 11/03/2024 1:34 PM EDT us Mikayla Jennings PA-C LAB BLOOD ORDERABLES Final Re sult [facility]) [address] [place] [address] * (ABNORMAL) POCT glucose meter (11/03/2024 11:35 AM EDT) Glucose POC 145(H) 70 - 105 mg/dL 11/03/2024 11:47 AM EDT [facility]) Comment:[email or web address] Blood Capillary blood specimen / Unknown 11/03/2024 11:35 AM EDT 11/03/2024 11:47 AM EDT Narrative [facility]) - 11/03/2024 11:47 AM EDT Waived Testing in the ED is performed under the ED CLIA certificate #[id number]. Ky Ritter MD LAB BLOOD ORDERABLES Final Re sult [facility] ([facility]) [address] [place] [address] * (ABNORMAL) POCT glucose meter (11/03/2024 7:46 AM EDT) Glucose POC 135(H) 70 - 105 mg/dL 11/03/2024 8:09 AM EDT [facility] ([facility]) Comment:[email or web address] Blood Capillary blood specimen / Unknown 11/03/2024 7:46 AM EDT 11/03/2024 8:09 AM EDT Narrative [facility] ([facility]) - 11/03/2024 8:09 AM EDT Waived Testing in the ED is performed under the ED CLIA certificate #[id number]. Ky Ritter MD LAB BLOOD ORDERABLES Final Re sult Performing Organization Address [facility]/ZIP Co de Phone Number [facility] ([facility]) [address] [place] [address] * Phosphorus (11/03/2024 4:46 AM EDT) Phosphorus 3.7 2.5 - 5.0 mg/dL 11/03/2024 5:30 AM EDT [facility] ([facility]) Blood Venous blood specimen / Unknown Existing Catheter / Unknown 11/03/2024 4:46 AM EDT 11/03/2024 4:58 AM EDT Rosa Willoughby PA-C LAB BLOOD ORDERABLES Final R esult Performing Organization Address City/[facility]/ZIP Co de Phone Number [facility] ([facility]) [address] [place] [address] * Magnesium (11/03/2024 4:46 AM EDT) Magnesium 2.2 1.9 - 2.7 mg/dL 11/03/2024 5:30 AM EDT [facility] ([facility]) Blood Venous blood specimen / Unknown Existing Catheter / Unknown 11/03/2024 4:46 AM EDT 11/03/2024 4:58 AM EDT us Rosa Willoughby PA-C LAB BLOOD ORDERABLES Final R esult [facility] ([facility]) [address] [place] [address] * (ABNORMAL) Basic metabolic panel (11/03/2024 4:46 AM EDT) Sodium 136 136 - 145 mmol/L 11/03/2024 5:30 AM EDT [facility] ([facility]) Potassium 4.4 3.5 - 5.1 mmol/L 11/03/2024 5:30 AM EDT [facility] ([facility]) Chloride 108(H) 98 - 107 mmol/L 11/03/2024 5:30 AM EDT [facility] ([facility]) CO2 22 21 - 31 mmol/L 11/03/2024 5:30 AM EDT [facility] ([facility]) BUN 6(L) 7 - 25 mg/dL 11/03/2024 5:30 AM EDT [facility] ([facility]) Creatinine 0.52(L) 0.60 - 1.20 mg/dL 11/03/2024 5:30 AM EDT [facility] ([facility]) Glucose 170(H) 70 - 100 mg/dL 11/03/2024 5:30 AM EDT [facility] ([facility]) Calcium 7.9(L) 8.6 - 10.3 mg/dL 11/03/2024 5:30 AM EDT [facility] ([facility]) Anion Gap 10 7 - 20 mmol/L 11/03/2024 5:30 AM EDT [facility] ([facility]) eGFR 124.2 >60.0 mL/min/1. 73m*2 11/03/2024 5:30 AM EDT [facility] ([facility]) Comment:[facility] s estimated glomerular filtration rate (eGFR) will [...] BUN/Creatinine Ratio 11.5 10/16 5:30 AM EDT [facility] ([facility]) Blood Venous blood specimen / Unknown Existing Catheter / Unknown 11/03/2024 4:46 AM EDT 11/03/2024 4:58 AM EDT us Rosa Willoughby PA-C LAB BLOOD ORDERABLES Final R esult [facility] ([facility]) [address] [place] [address] * (ABNORMAL) CBC (11/03/2024 4:46 AM EDT) Auto WBC 6.23 4.00 - 10.60 10*3/uL 11/03/2024 5:09 AM EDT [facility] ([facility]) RBC 3.23(L) 3.80 - 5.00 10*6/uL 11/03/2024 5:09 AM EDT [facility] ([facility]) Hemoglobin 9.5(L) 12.0 - 15.0 g/dL 11/03/2024 5:09 AM EDT [facility] ([facility]) Hematocrit 28.7(L) 36.0 - 45.0 % 11/03/2024 5:09 AM EDT [facility] ([facility]) MCV 88.9 82.0 - 98.0 fL 11/03/2024 5:09 AM EDT [facility] ([facility]) MCH 29.4 27.0 - 33.0 pg 11/03/2024 5:09 AM EDT [facility] ([facility]) MCHC 33.1 32.0 - 35.0 g/dL 11/03/2024 5:09 AM EDT [facility] ([facility]) RDW 13.6 11.5 - 15.0 % 11/03/2024 5:09 AM EDT [facility] ([facility]) Platelets 248 150 - 400 10*3/uL 11/03/2024 5:09 AM EDT [facility] ([facility]) Blood Venous blood specimen / Unknown Existing Catheter / Unknown 11/03/2024 4:46 AM EDT 11/03/2024 4:58 AM EDT Rosa Willoughby PA-C LAB BLOOD ORDERABLES Final R esult Performing Organization Address City/[facility]/ZIP Co de Phone Number [facility] ([facility]) [address] [place] [address] * Calcium, ionized (11/03/2024 4:46 AM EDT) Calcium, Ion 1.16 1.15 - 1.33 mmol/L 11/03/2024 5:32 AM EDT [facility] Blood Venous blood specimen / Unknown Existing Catheter / Unknown 11/03/2024 4:46 AM EDT 11/03/2024 5:20 AM EDT Rosa Willoughby PA-C LAB BLOOD ORDERABLES Final R esult [facility]ERAPY [address] [place] [address], [place] * (ABNORMAL) INTEM C (11/03/2024 1:58 AM EDT) INTEM C CLOTTING TIME 169 139 - 205 s 11/03/2024 1:58 AM EDT [facility]ERAPY INTEM C AMPLITUDE 5 MIN 48 36 - 54 mm 11/03/2024 1:58 AM EDT [facility]IR[facility] THERAPY INTEM C AMPLITUDE 10 MIN 57 46 - 63 mm 11/03/2024 1:58 AM EDT [facility] THERAPY INTEM C AMPLITUDE 20 MIN 63 53 - 68 mm 11/03/2024 1:58 AM EDT [facility]PIRAT[facility] THERAPY INTEM C MAXIMUM CLOT FIRMNESS 63 55 - 70 mm 11/03/2024 1:58 AM EDT [facility]IRAT[facility] THERAPY INTEM C LYSIS INDEX 60 MIN 95 93 - 100 % 11/03/2024 1:58 AM EDT [facility] RESPIRATORY THERAPY INTEM C MAXIMUM LYSIS 12(H) 0 - 7 % 11/03/2024 1:58 AM EDT [facility] Comment:TN^Preliminary Resul t Blood 11/03/2024 1:58 AM EDT 11/03/2024 1:58 AM EDT us Ky Ritter MD LAB BLOOD ORDERABLES Final Re sult Performing Organization Address [facility] Co de Phone Number [facility]PIRATORY THERAPY [address] [place] [address], * HEPTEM C (11/03/2024 1:58 AM EDT) HEPTEM C CLOTTING TIME 168 141 - 215 s 11/03/2024 1:58 AM EDT [facility] RES[facility]IRAT[facility] THERAPY HEPTEM C AMPLITUDE 5 MIN 46 33 - 51 mm 11/03/2024 1:58 AM EDT [facility] RESPIRATORY THERAPY HEPTEM C AMPLITUDE 10 MIN 56 44 - 61 mm 11/03/2024 1:58 AM EDT [facility] RESPIRATORY THERAPY HEPTEM C AMPLITUDE 20 MIN 62 52 - 67 mm 11/03/2024 1:58 AM EDT [facility] RESPIRATORY THERAPY HEPTEM C MAXIMUM CLOT FIRMNESS 63 54 - 69 mm 11/03/2024 1:58 AM EDT [facility]ERAP[facility] Blood 11/03/2024 1:58 AM EDT 11/03/2024 1:58 AM EDT us Ky Ritter MD LAB BLOOD ORDERABLES Final Re sult Performing Organization Address City/[facility]/ZIP Co de Phone Number [facility] RESPIRATORY THERAPY [address] [place] [address], [place] * (ABNORMAL) EXTEM C (11/03/2024 1:58 AM EDT) EXTEM C CLOTTING TIME 51 51 - 73 s 11/03/2024 1:58 AM EDT [facility] RES[facility]IRAT[facility] THERAPY EXTEM C AMPLITUDE 5 MIN 52 33 - 52 mm 11/03/2024 1:58 AM EDT [facility] RES[facility]IR[facility] THERAPY EXTEM C AMPLITUDE 10 MIN 61 45 - 62 mm 11/03/2024 1:58 AM EDT [facility] RES[facility]IR[facility] THERAPY EXTEM C AMPLITUDE 20 MIN 67 54 - 69 mm 11/03/2024 1:58 AM EDT [facility]IRAT[facility] THERAPY EXTEM C MAXIMUM CLOT FIRMNESS 68 57 - 72 mm 11/03/2024 1:58 AM EDT [facility] RES[facility]IRAT[facility] THERAPY EXTEM C LYSIS INDEX 60 MIN 96 94 - 100 % 11/03/2024 1:58 AM EDT [facility] RESPIRATORY THERAPY EXTEM C MAXIMUM LYSIS 10(H) 0 - 6 % 11/03/2024 1:58 AM EDT [facility] Comment:TN^Preliminary Resul t Blood 11/03/2024 1:58 AM EDT 11/03/2024 1:58 AM EDT us Ky Ritter MD LAB BLOOD ORDERABLES Final Re sult [facility] RESPIRATORY [facility] [address] [place] [address], [place] * FIBTEM C (11/03/2024 1:58 AM EDT) FIBTEM C AMPLITUDE 5 MIN 12 5 - 16 mm 11/03/2024 1:58 AM EDT [facility] THERAPY FIBTEM C AMPLITUDE 10 MIN 13 6 - 17 mm 11/03/2024 1:58 AM EDT [facility] RES[facility]IR[facility] THERAPY FIBTEM C AMPLITUDE 20 MIN 14 6 - 18 mm 11/03/2024 1:58 AM EDT [facility] RESPIRATORY THERAPY FIBTEM C MAXIMUM CLOT FIRMNESS 15 6 - 19 mm 11/03/2024 1:58 AM EDT [facility]ERAPY Blood 11/03/2024 1:58 AM EDT 11/03/2024 1:58 AM EDT us Ky Ritter MD LAB BLOOD ORDERABLES Final Re sult [facility]PIRATORY THERAPY [address] [place] [address], [place] * (ABNORMAL) CBC (11/03/2024 12:07 AM EDT) Auto WBC 7.71 4.00 - 10.60 10*3/uL 11/03/2024 12:41 AM EDT [facility] ([facility]) RBC 3.26(L) 3.80 - 5.00 10*6/uL 11/03/2024 12:41 AM EDT [facility] ([facility]) Hemoglobin 9.7(L) 12.0 - 15.0 g/dL 11/03/2024 12:41 AM EDT [facility] ([facility]) Hematocrit 29.0(L) 36.0 - 45.0 % 11/03/2024 12:41 AM EDT [facility] ([facility]) MCV 89.0 82.0 - 98.0 fL 11/03/2024 12:41 AM EDT [facility] ([facility]) MCH 29.8 27.0 - 33.0 pg 11/03/2024 12:41 AM EDT [facility] ([facility]) MCHC 33.4 32.0 - 35.0 g/dL 11/03/2024 12:41 AM EDT [facility] ([facility]) RDW 13.3 11.5 - 15.0 % 11/03/2024 12:41 AM EDT [facility] ([facility]) Platelets 216 150 - 400 10*3/uL 11/03/2024 12:41 AM EDT [facility] ([facility]) Blood Venous blood specimen / Unknown Existing Catheter / Unknown 11/03/2024 12:07 AM EDT 11/03/2024 12:33 AM EDT Rosa Willoughby PA-C LAB BLOOD ORDERABLES Final R esult [facility]) [address] [place] [address] * Phosphorus (11/03/2024 12:07 AM EDT) Phosphorus 2.7 2.5 - 5.0 mg/dL 11/03/2024 12:57 AM EDT [facility]) Blood Venous blood specimen / Unknown Existing Catheter / Unknown 11/03/2024 12:07 AM EDT 11/03/2024 12:33 AM EDT Rosa Willoughby PA-C LAB BLOOD ORDERABLES Final R esult Performing Organization Address City/[facility]/ZIP Co de Phone Number [facility]) [address] [place] [address] * (ABNORMAL) Magnesium (11/03/2024 12:07 AM EDT) Magnesium 1.5(L) 1.9 - 2.7 mg/dL 11/03/2024 12:57 AM EDT [facility]) Blood Venous blood specimen / Unknown Existing Catheter / Unknown 11/03/2024 12:07 AM EDT 11/03/2024 12:33 AM EDT Rosa Willoughby PA-C LAB BLOOD ORDERABLES Final R esult [facility]) [address] [place], [place] [id number] * (ABNORMAL) Basic metabolic panel (11/03/2024 12:07 AM EDT) Sodium 135(L) 136 - 145 mmol/L 11/03/2024 12:57 AM EDT [facility]) Potassium 4.9 3.5 - 5.1 mmol/L 11/03/2024 12:57 AM EDT [facility] ([facility]) Chloride 110(H) 98 - 107 mmol/L 11/03/2024 12:57 AM T [facility] ([facility]) CO2 20(L) 21 - 31 mmol/L 11/03/2024 12:57 AM EDT [facility] ([facility]) BUN 8 7 - 25 mg/dL 11/03/2024 12:57 AM T [facility] ([facility]) Creatinine 0.53(L) 0.60 - 1.20 mg/dL 11/03/2024 12:57 AM T [facility] ([facility]) Glucose 168(H) 70 - 100 mg/dL 11/03/2024 12:57 AM T [facility] ([facility]) Calcium 7.6(L) 8.6 - 10.3 mg/dL 11/03/2024 12:57 AM T [facility] ([facility]) Anion Gap 10 7 - 20 mmol/L 11/03/2024 12:57 AM [facility] ([facility]) eGFR 123.6 >60.0 mL/min/1. 73m*2 11/03/2024 12:57 AM T [facility] ([facility]) Comment:[facility] s estimated glomerular filtration rate (eGFR) will [...] individuals. BUN/Creatinine Ratio 15.1 10/16 12:57 AM T [facility] ([facility]) Blood Venous blood specimen / Unknown Existing Catheter / Unknown 11/03/2024 12:07 AM EDT 11/03/2024 12:33 AM EDT us Rosa Willoughby PA-C LAB BLOOD ORDERABLES Final R esult [facility] ([facility]) [address] [place], [place] [id number] * Fibrinogen (11/03/2024 12:07 AM EDT) Fibrinogen 328 150 - 425 mg/dL 11/03/2024 12:53 AM EDT [facility] ([facility]) Blood Venous blood specimen / Unknown Existing Catheter / Unknown 11/03/2024 12:07 AM EDT 11/03/2024 12:27 AM EDT us Jose Angel Fox MD LAB BLOOD ORDERABLES Final Resu lt Performing Organization Address [facility]/ZIP Co de Phone Number [facility] ([facility]) [address] [place] [address] * (ABNORMAL) Protime-INR (11/03/2024 12:07 AM EDT) Protime 14.9(H) 12.3 - 14.8 Seconds 11/03/2024 12:53 AM EDT [facility] ([facility]) INR 1.17(H) 0.90 - 1.10 11/03/2024 12:53 AM EDT [facility] ([facility]) Comment: [facility] RECOMMENDED INR FOR WARFARIN THERAPY [...] 12:07 AM EDT 11/03/2024 12:27 AM EDT Jose Angel Fox MD LAB BLOOD ORDERABLES Final Resu lt Performing Organization Address [facility]/ZIP Co de Phone Number [facility] ([facility]) [address] [place] [address] * (ABNORMAL) POCT glucose meter (11/02/2024 10:48 PM EDT) Glucose POC 151(H) 70 - 105 mg/dL 11/02/2024 10:59 PM EDT [facility] ([facility]) Comment:[email or web address] Blood Capillary blood specimen / Unknown 11/02/2024 10:48 PM EDT 11/02/2024 10:59 PM EDT Narrative [facility] ([facility]) - 11/02/2024 10:59 PM EDT Waived Testing in the ED is performed under the ED CLIA certificate #[id number]. us Ky Ritter MD LAB BLOOD ORDERABLES Final Re sult Performing Organization Address [facility] Co de Phone Number [facility] ([facility]) [address] [place] [address] * Transfuse RBC (11/02/2024 9:35 PM EDT) Tarik Mayers CAA BLOOD TRANSFUSION ORDERABLES Fi nal Result * Transfuse RBC (11/02/2024 9:32 PM EDT) Tarik Mayers CAA BLOOD TRANSFUSION ORDERABLES Fi nal Result * (ABNORMAL) POCT glucose meter (11/02/2024 8:30 PM EDT) Glucose POC 160(H) 70 - 105 mg/dL 11/02/2024 8:41 PM EDT [facility] ([facility]) Comment:[email or web address] Blood Capillary blood specimen / Unknown 11/02/2024 8:30 PM EDT 11/02/2024 8:41 PM EDT Narrative [facility] ([facility]) - 11/02/2024 8:41 PM EDT Waived Testing in the ED is performed under the ED CLIA certificate #[id number]. us Ky Ritter MD LAB BLOOD ORDERABLES Final Re sult [facility] ([facility]) [address] [place] [address] * Prepare RBC: 1 Units (11/02/2024 8:05 PM EDT) PRODUCT CODE [id number] [facility] Unit Number [id number] [facility] Unit ABO O [facility] Unit Rh POS [facility] Crossmatch Interpretation COMP [facility] Dispense Status TR [facility] Blood Expiration Date [facility] BANK Product Blood Type 5100 [facility] BLOOD BANK Unit Volume 300 ML [facility] BLO OD BANK Other 11/02/2024 8:05 PM EDT us Tomasa Disla MD BLOOD BANK PRODUCT ORDER JIN Final Result [facility] BLOOD BANK * Prepare RBC: 2 Units (11/02/2024 8:05 PM EDT) PRODUCT CODE [id number] [facility] BL OOD BANK Unit Number [id number] [facility] BLOOD BANK Unit ABO O [facility] BLOOD BANK Unit Rh POS [facility] BLOOD BANK Crossmatch Interpretation COMP [facility] BLOOD BANK Dispense Status TR [facility] BLOOD BANK Blood Expiration Date [facility] BLOOD BANK Product Blood Type 5100 [facility] BLOOD BANK Unit Volume 300 ML [facility] BLO OD BANK PRODUCT CODE [id number] [facility] BL OOD BANK Unit Number [id number] [facility] BLOOD BANK Unit ABO O [facility] BLOOD BANK Unit Rh POS [facility] BLOOD BANK Crossmatch Interpretation COMP [facility] BLOOD BANK Dispense Status TR [facility] BLOOD BANK Blood Expiration Date [id number] [facility] BLOOD BANK Product Blood Type 5100 [facility] BLOOD BANK Other 11/02/2024 8:05 PM EDT us Wali Collins MD BLOOD BANK PRODUCT ORDERAB LES Final Result [facility] BLOOD BANK * Type and screen (11/02/2024 8:02 PM EDT) ABO Grouping O 11/02/2024 8:42 PM EDT [facility] BLOOD BANK Rh Type POS 11/02/2024 8:42 PM EDT [facility] BLOOD BANK Ab Scrn NEG 11/02/2024 8:42 PM EDT [facility] BLOOD BANK Blood Venous blood specimen / Unknown Existing Catheter / Unknown 11/02/2024 8:02 PM EDT 11/02/2024 8:02 PM EDT us Wali Collins MD LAB BLOOD BANK TEST ORDERA BLES Final Result Performing Organization Address City/[facility]/ZIP Co de Phone Number [facility] BLOOD BANK * (ABNORMAL) CBC (11/02/2024 8:02 PM EDT) Auto WBC 9.01 4.00 - 10.60 10*3/uL 11/02/2024 8:13 PM EDT [facility] ([facility]) RBC 3.18(L) 3.80 - 5.00 10*6/uL 11/02/2024 8:13 PM EDT [facility] ([facility]) Hemoglobin 9.4(L) 12.0 - 15.0 g/dL 11/02/2024 8:13 PM EDT [facility] ([facility]) Hematocrit 28.9(L) 36.0 - 45.0 % 11/02/2024 8:13 PM EDT [facility] ([facility]) MCV 90.9 82.0 - 98.0 fL 11/02/2024 8:13 PM EDT [facility] ([facility]) MCH 29.6 27.0 - 33.0 pg 11/02/2024 8:13 PM EDT [facility] ([facility]) MCHC 32.5 32.0 - 35.0 g/dL 11/02/2024 8:13 PM EDT [facility] ([facility]) RDW 13.2 11.5 - 15.0 % 11/02/2024 8:13 PM EDT [facility] ([facility]) Platelets 358 150 - 400 10*3/uL 11/02/2024 8:13 PM EDT [facility] ([facility]) Blood Venous blood specimen / Unknown Existing Catheter / Unknown 11/02/2024 8:02 PM EDT 11/02/2024 8:02 PM EDT us Wali Collins MD LAB BLOOD ORDERABLES Final Result [facility]) [address] [place] [address] * Red Top (11/02/2024 8:00 PM EDT) Extra Tube Hold for add-ons. 11/02/2024 10:02 PM EDT [facility] ([facility]) Comment:Auto resulted. Blood Venous blood specimen / Unknown 11/02/2024 8:00 PM EDT 11/02/2024 8:19 PM EDT us Ky Ritter MD LAB BLOOD ORDERABLES Final Re sult [facility]) [address] [place] [address] * (ABNORMAL) Activated clotting time (11/02/2024 4:43 PM EDT) Activated Clotting Time 176(H) 82 - 152 s 11/02/2024 5:54 PM EDT [facility]) Blood Venous blood specimen / Unknown 11/02/2024 4:43 PM EDT 11/02/2024 5:54 PM EDT us Ky Ritter MD LAB POINT OF CARE TE ST DOCKED DEVICE UNSOLICITED RESULTS Final Result [facility] ([facility]) [address] [place] [address] * (ABNORMAL) POCT activated clotting time manually [...] - 152 s 11/02/2024 5:54 PM EDT [facility] ([facility]) Blood Venous blood specimen / Unknown 11/02/2024 4:13 PM EDT 11/02/2024 5:54 PM EDT us Ky Ritter MD LAB POINT OF CARE TE ST DOCKED DEVICE UNSOLICITED RESULTS Final Result [facility] ([facility]) [address] [place] [address] * (ABNORMAL) Activated clotting time (11/02/2024 2:56 PM EDT) Activated Clotting Time 227(H) 82 - 152 s 11/02/2024 3:02 PM EDT [facility] ([facility]) Blood Venous blood specimen / Unknown 11/02/2024 2:56 PM EDT 11/02/2024 3:02 PM EDT us Ky Ritter MD LAB POINT OF CARE TE ST DOCKED DEVICE UNSOLICITED RESULTS Final Result [facility] ([facility]) [address] [place] [address] * CORONARY ANGIOGRAPHY, ULTRASOUND - CORONARY, INSTANT [...] infiltrated over the right femoral artery. A 6-Citizen Of [place] sheath was placed in right femoral artery. Coronary angiography was performed with a JL4 and then repeated after IC nitroglycerin 50 mcg x 2. At this time, it was apparent that the LAD had a moderate stenosis and IVUS and iFR were performed. Heparin anticoagulation was used for this procedure. ACT was maintained at >250 seconds. A 6 Citizen [place] xb3 was engaged to the [place]. 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] Unstable angina Ky Ritter MD CV CARDIAC CATH PROCEDURES Fi nal Result * (ABNORMAL) Activated clotting time (11/02/2024 2:24 PM EDT) Pathologist [facility] Activated Clotting Time 339(H) 82 - 152 s 11/02/2024 2:28 PM EDT [facility] ([facility]) Blood Venous blood specimen / Unknown 11/02/2024 2:24 PM EDT 11/02/2024 2:28 PM EDT Ky Ritter MD LAB POINT OF CARE TE ST DOCKED DEVICE UNSOLICITED RESULTS Final Result [facility] ([facility]) [address] [place] [address] * ECG 12 lead (11/02/2024 1:18 PM EDT) [facility] Ventricular Rate 74 BPM GE MUSE Atrial Rate 74 BPM GE MUSE TN Interval 138 ms GE MUSE QRS DURATION 84 ms GE MUSE QT Interval 454 ms GE MUSE QTC CALCULATION(BAZE TT) 503 ms GE MUSE P [place] 54 degrees GE MUSE R-[place] 41 degrees GE MUSE T Wave [place] 77 degrees GE MUSE 11/02/2024 1:02 PM [...] Sensitivity Troponin I (11/02/2024 1:01 PM EDT) [facility] High Sensitivity Troponin I 47(H) <15 ng/L 11/02/2024 1:57 PM EDT [facility] ([facility]) Blood Venous blood specimen / Unknown Existing Catheter / Unknown 11/02/2024 1:01 PM EDT 11/02/2024 1:19 PM EDT us Ky Ritter MD LAB BLOOD ORDERABLES Final Re sult [facility] ([facility]) [address] [place] [address] * (ABNORMAL) POCT glucose meter (11/02/2024 11:07 AM EDT) Glucose POC 115(H) 70 - 105 mg/dL 11/02/2024 11:18 AM EDT [facility] ([facility]) Comment:[email or web address] Blood Capillary blood specimen / Unknown 11/02/2024 11:07 AM EDT 11/02/2024 11:18 AM EDT [facility] ([facility]) - 11/02/2024 11:18 AM EDT Waived Testing in the ED is performed under the ED CLIA certificate #[id number]. Ky Ritter MD LAB BLOOD ORDERABLES Final Re sult Performing Organization Address [facility]/ZIP Co de Phone Number [facility] [address] [place] [address] * (ABNORMAL) POCT glucose meter (11/02/2024 7:31 AM EDT) Glucose POC 150(H) 70 - 105 mg/dL 11/02/2024 7:42 AM EDT [facility] ([facility]) Comment:[email or web address] Blood Capillary blood specimen / Unknown 11/02/2024 7:31 AM EDT 11/02/2024 7:42 AM EDT [facility]) - 11/02/2024 7:42 AM EDT Waived Testing in the ED is performed under the ED CLIA certificate #[id number]. us Ky Ritter MD LAB BLOOD ORDERABLES Final Re sult [facility] [address] [place] [address] * Light Green Top (11/02/2024 6:15 AM EDT) Extra Tube Hold for add-ons. 11/02/2024 8:01 AM EDT [facility] ([facility]) Comment:Auto resulted. Blood Venous blood specimen / Unknown Existing Catheter / Unknown 11/02/2024 6:15 AM EDT 11/02/2024 6:38 AM EDT us Ky Ritter MD LAB BLOOD ORDERABLES Final Re sult [facility] ([facility]) [address] [place] [address] * (ABNORMAL) CBC (11/02/2024 6:15 AM EDT) Auto WBC 4.49 4.00 - 10.60 10*3/uL 11/02/2024 7:18 AM EDT [facility] ([facility]) RBC 3.69(L) 3.80 - 5.00 10*6/uL 11/02/2024 7:18 AM EDT [facility] ([facility]) Hemoglobin 10.8(L) 12.0 - 15.0 g/dL 11/02/2024 7:18 AM EDT [facility] ([facility]) Hematocrit 33.3(L) 36.0 - 45.0 % 11/02/2024 7:18 AM EDT [facility] ([facility]) MCV 90.2 82.0 - 98.0 fL 11/02/2024 7:18 AM EDT [facility] ([facility]) MCH 29.3 27.0 - 33.0 pg 11/02/2024 7:18 AM EDT [facility] ([facility]) MCHC 32.4 32.0 - 35.0 g/dL 11/02/2024 7:18 AM EDT [facility] ([facility]) RDW 13.4 11.5 - 15.0 % 11/02/2024 7:18 AM EDT [facility] ([facility]) Platelets 292 150 - 400 10*3/uL 11/02/2024 7:18 AM EDT [facility] ([facility]) Blood Venous blood specimen / Unknown 11/02/2024 6:15 AM EDT 11/02/2024 6:37 AM EDT us Debbie Luna DIRECTOR DERMATOLOGY LAB BLOOD ORDERABLES Final Resu lt [facility] ([facility]) [address] [place] [address] * (ABNORMAL) POCT glucose meter (11/01/2024 8:42 PM EDT) Glucose POC 106(H) 70 - 105 mg/dL 11/01/2024 8:54 PM EDT [facility] ([facility]) Comment: Blood Capillary blood specimen / Unknown 11/01/2024 8:42 PM EDT 11/01/2024 8:54 PM EDT Narrative [facility] ([facility]) - 11/01/2024 8:54 PM EDT Waived Testing in the ED is performed under the ED CLIA certificate #[id number]. us Ky Ritter MD LAB BLOOD ORDERABLES Final Re sult Performing Organization Address [facility]/ZIP Co de Phone Number [facility] [address] [place] [address] * POCT glucose meter (11/01/2024 6:04 PM EDT) Glucose POC 102 70 - 105 mg/dL 11/01/2024 6:20 PM EDT [facility] ([facility]) Comment:[email or web address] Blood Capillary blood specimen / Unknown 11/01/2024 6:04 PM EDT 11/01/2024 6:20 PM EDT Narrative [facility] ([facility]) - 11/01/2024 6:20 PM EDT Waived Testing in the ED is performed under the ED CLIA certificate #[id number]. us Ky Ritter MD LAB BLOOD ORDERABLES Final Re sult [facility] ([facility]) [address] [place] [address] * (ABNORMAL) Activated clotting time (11/01/2024 4:36 PM EDT) Activated Clotting Time 160(H) 82 - 152 s 11/02/2024 12:11 PM EDT [facility] ([facility]) Blood Venous blood specimen / Unknown 11/01/2024 4:36 PM EDT 11/02/2024 12:11 PM EDT us Ky Ritter MD LAB POINT OF CARE TE ST DOCKED DEVICE UNSOLICITED RESULTS Final Result [facility] ([facility]) [address] [place] [address] * (ABNORMAL) POCT activated clotting time docked device (11/01/2024 4:33 PM EDT) Activated Clotting Time POC 160(A) 82 - 152 sec [facility] ([facility]) Blood 11/01/2024 4:33 PM EDT us Ky Ritter MD LAB POINT OF CARE TEST DOCKED DEVICE ORDERABLES Final Result [facility] ([facility]) [address] [place] [address] * CORONARY ANGIOGRAPHY, ULTRASOUND - CORONARY (11/01/2024 [...] on TPN presents a direct admission from [facility] with chief complaint of chest pain. She [...] infiltrated over the right femoral artery. A 5-Citizen Of [place] Terumo sheath was placed in right femoral [...] was maintained at >250 seconds. A 5 Citizen Of [place] Cordis XB 3.0 guide was engaged to the left main. I decided to proceed with IVUS. I then advanced a Runthrough wire to the distal left anterior descending. Next, I advanced a Celsias IVUS catheter. IVUS imaging was performed and [...] Activated clotting time (11/01/2024 1:27 PM EDT) [facility] Activated Clotting Time 332(H) 82 - 152 s 11/01/2024 1:37 PM EDT [facility] ([facility]) Blood Venous blood specimen / Unknown 11/01/2024 1:27 PM EDT 11/01/2024 1:36 PM EDT us yK Ritter MD LAB POINT OF CARE TE ST DOCKED DEVICE UNSOLICITED RESULTS Final Result Performing Organization Address City/[facility]/ZIP Co de Phone Number [facility]) [address] [place] [address] * (ABNORMAL) Activated clotting time (11/01/2024 1:14 PM EDT) [facility] Activated Clotting Time 222(H) 82 - 152 s 11/01/2024 1:19 PM EDT [facility]) Blood Venous blood specimen / Unknown 11/01/2024 1:14 PM EDT 11/01/2024 1:19 PM EDT us Ky Ritter MD LAB POINT OF CARE TE ST DOCKED DEVICE UNSOLICITED RESULTS Final Result [facility]) [address] [place] [address] * ECG 12 lead (11/01/2024 12:09 PM EDT) [facility] Signature Ventricular Rate 76 BPM GE MUSE Atrial Rate 76 BPM GE MUSE TN Interval 132 ms GE MUSE QRS DURATION 84 ms GE MUSE QT Interval 444 ms GE MUSE QTC CALCULATION(BAZE TT) 499 ms GE MUSE P [place] 72 degrees GE MUSE R-[place] 50 degrees GE MUSE T Wave [place] 89 degrees GE MUSE 11/01/2024 11:5 7 AM EDT 11/01/2024 11:37 PM EDT Impressions GE MUSE - 11/01/2024 11:37 PM EDT Normal sinus rhythm T tatoes, consider anterior and high lateral ischemia Prolonged QT Abnormal ECG Confirmed by Griffin Diaz ([id number]) on 11/01/2024 11:37:39 PM Narrative Procedure Note Jonelle Harrison MD - 11/01/2024 IMPRESSION: Normal sinus rhythm T tatojuan, consider anterior and high lateral ischemia Prolonged QT Abnormal ECG Confirmed by Griffin Diaz ([id number]) on 11/01/2024 11:37:39 PM Ky Ritter MD ECG ORDERABLES Final Result GE [facility] * (ABNORMAL) POCT glucose meter (11/01/2024 11:30 AM EDT) [facility] Glucose POC 109(H) 70 - 105 mg/dL 11/01/2024 12:44 PM EDT [facility] ([facility]) Comment:[email or web address] Blood Capillary blood specimen / Unknown 11/01/2024 11:30 AM EDT 11/01/2024 12:44 PM EDT Narrative [facility] ([facility]) - 11/01/2024 12:44 PM EDT Waived Testing in the ED is performed under the ED CLIA certificate #[id number]. Ky Ritter MD LAB BLOOD ORDERABLES Final Re sult [facility] ([facility]) [address] [place] [address] * (ABNORMAL) Basic metabolic panel (11/01/2024 10:10 AM EDT) Sodium 137 136 - 145 mmol/L 11/01/2024 10:50 AM [facility] ([facility]) Potassium 4.6 3.5 - 5.1 mmol/L 11/01/2024 10:50 AM [facility] ([facility]) Chloride 106 98 - 107 mmol/L 11/01/2024 10:50 AM [facility] ([facility]) CO2 27 21 - 31 mmol/L 11/01/2024 10:50 AM [facility] ([facility]) BUN 9 7 - 25 mg/dL 11/01/2024 10:50 AM [facility] ([facility]) Creatinine 0.53(L) 0.60 - 1.20 mg/dL 11/01/2024 10:50 AM [facility] ([facility]) Glucose 98 70 - 100 mg/dL 11/01/2024 10:50 AM [facility] ([facility]) Calcium 8.6 8.6 - 10.3 mg/dL 11/01/2024 10:50 AM [facility] ([facility]) Anion Gap 9 7 - 20 mmol/L 11/01/2024 10:50 AM [facility] ([facility]) eGFR 123.6 >60.0 mL/min/1. 73m*2 11/01/2024 10:50 AM [facility] ([facility]) Comment:[facility] s estimated glomerular filtration rate (eGFR) will [...] individuals. BUN/Creatinine Ratio 17.0 10/16 10:50 AM [facility] ([facility]) Blood Venous blood specimen / Unknown Existing Catheter / Unknown 11/01/2024 10:10 AM EDT 11/01/2024 10:25 AM EDT us Ky Ritter MD LAB BLOOD ORDERABLES Final Re sult [facility] ([facility]) [address] [place] [address] * (ABNORMAL) CBC (11/01/2024 10:10 AM EDT) Auto WBC 4.80 4.00 - 10.60 10*3/uL 11/01/2024 10:40 AM EDT [facility] ([facility]) RBC 3.87 3.80 - 5.00 10*6/uL 11/01/2024 10:40 AM EDT [facility] ([facility]) Hemoglobin 11.3(L) 12.0 - 15.0 g/dL 11/01/2024 10:40 AM EDT [facility] ([facility]) Hematocrit 34.6(L) 36.0 - 45.0 % 11/01/2024 10:40 AM EDT [facility] ([facility]) MCV 89.4 82.0 - 98.0 fL 11/01/2024 10:40 AM EDT [facility] ([facility]) MCH 29.2 27.0 - 33.0 pg 11/01/2024 10:40 AM EDT [facility] ([facility]) MCHC 32.7 32.0 - 35.0 g/dL 11/01/2024 10:40 AM EDT [facility] ([facility]) RDW 13.2 11.5 - 15.0 % 11/01/2024 10:40 AM EDT [facility] ([facility]) Platelets 300 150 - 400 10*3/uL 11/01/2024 10:40 AM EDT [facility] ([facility]) Blood Venous blood specimen / Unknown Existing Catheter / Unknown 11/01/2024 10:10 AM EDT 11/01/2024 10:25 AM EDT us Ky Ritter MD LAB BLOOD ORDERABLES Final Re sult [facility] ([facility]) [address], [place] [id number] * (ABNORMAL) POCT glucose meter (11/01/2024 7:43 AM EDT) [facility] Glucose POC 162(H) 70 - 105 mg/dL 11/01/2024 7:55 AM EDT [facility] ([facility]) Comment:[email or web address] Blood Capillary blood specimen / Unknown 11/01/2024 7:43 AM EDT 11/01/2024 7:55 AM EDT Narrative [facility] ([facility]) - 11/01/2024 7:55 AM EDT Waived Testing in the ED is performed under the ED CLIA certificate #[id number]. us Ky Ritter MD LAB BLOOD ORDERABLES Final Re sult Performing Organization Address City/[facility]/ZIP Co de Phone Number [facility]) [address] [place] [id number] * (ABNORMAL) High Sensitivity Troponin I (11/01/2024 6:42 AM EDT) [facility] High Sensitivity Troponin I 19(H) <15 ng/L 11/01/2024 7:02 AM EDT [facility] ([facility]) Blood Venous blood specimen / Unknown Existing Catheter / Unknown 11/01/2024 6:42 AM EDT 11/01/2024 6:42 AM EDT us Debbie Luna CNP LAB BLOOD ORDERABLES Final Resu lt [facility]) [address] [place], [place] [id number] * (ABNORMAL) Anti-Xa (Heparin Level) (11/01/2024 6:04 AM EDT) [facility] Anti-Xa (Heparin) 0.27(L) 0.3 - 0.7 IU/mL 11/01/2024 6:37 AM EDT [facility] ([facility]) Comment:Rivaroxaban and Apix aban will interfere with the anti Xa assay used to monitor UFH and LMWH. Blood Blood sample taken from central line / Unknown Existing Catheter / Unknown 11/01/2024 6:04 AM EDT 11/01/2024 6:15 AM EDT Ky Ritter MD LAB BLOOD ORDERABLES Final Re sult Performing Organization Address [facility]/ZIP Co de Phone Number [facility] ([facility]) [address] [place] [address] * (ABNORMAL) POCT glucose meter (11/01/2024 6:02 AM EDT) Glucose POC 114(H) 70 - 105 mg/dL 11/01/2024 6:13 AM EDT [facility] ([facility]) Comment:[email or web address] Blood Capillary blood specimen / Unknown 11/01/2024 6:02 AM EDT 11/01/2024 6:13 AM EDT Narrative [facility] ([facility]) - 11/01/2024 6:13 AM EDT Waived Testing in the ED is performed under the ED CLIA certificate #[id number]. Ky Ritter MD LAB BLOOD ORDERABLES Final Re sult Performing Organization Address [facility] Co de Phone Number [facility] ([facility]) [address] [place] [address] * (ABNORMAL) Toxicology Screen, Urine (11/01/2024 2:12 AM EDT) Barbiturates Negative Negative 11/01/2024 2:57 AM EDT [facility] ([facility]) Benzodiazepines Positive(A) Negative 11/02/19 2:57 AM EDT [facility] ([facility]) Propoxyphene Negative Negative 11/01/2024 2:57 AM EDT [facility] ([facility]) Methadone Negative Negative 11/01/2024 2:57 AM EDT [facility] ([facility]) Tricyclics Negative Negative 11/01/2024 2:57 AM EDT [facility] ([facility]) Phencyclidine Negative Negative 11/01/2024 2:57 AM EDT [facility] ([facility]) Opiates Positive(A) Negative 11/01/2024 2:57 AM EDT [facility] ([facility]) Cocaine Negative Negative 11/01/2024 2:57 AM EDT [facility] ([facility]) Amphetamines/Metha mphetamine Negative Negative 11/01/2024 2:57 AM EDT [facility] ([facility]) Cannabinoid Negative Negative 11/01/2024 2:57 AM EDT [facility] ([facility]) Urine Urine specimen obtained by clean catch procedure / Unknown Non-blood Collection / Unknown 11/01/2024 2:12 AM EDT 11/01/2024 2:18 AM EDT [facility] ([facility]) - 11/01/2024 2:57 AM EDT Unconfirmed screening results should only be used for medical purposes. Ky Ritter MD LAB URINE ORDERABLES Final Re sult [facility] ([facility]) [address] [place] [address] * POCT glucose meter (10/31/2024 8:20 PM EDT) [facility] Glucose POC 90 70 - 105 mg/dL 10/31/2024 8:33 PM EDT [facility] ([facility]) Comment:[email or web address] Blood Capillary blood specimen / Unknown 10/31/2024 8:20 PM EDT 10/31/2024 8:33 PM EDT [facility] ([facility]) - 10/31/2024 8:33 PM EDT Waived Testing in the ED is performed under the ED CLIA certificate #[id number]. us Ky Ritter MD LAB BLOOD ORDERABLES Final Re sult [facility] ([facility]) [address] [place] [address] * CORONARY ANGIOGRAPHY, LEFT HEART CATH (10/31/2024 [...] informed consent. she was brought to the medical laboratory manager in a fasting state. The left wrist area was prepped and draped in usual fashion. Micropuncture technique was used for access in the radial artery. A 5-Citizen Of [place] x 11 cm sheath was placed. Verapamil was given through the sheath, and heparin was administered intravenously. A 5 Citizen [place] JR4 diagnostic catheter was advanced and this [...] catheter was then downsized to a 4 Citizen [place] JR4 diagnostic catheter however this also was not able to engage the right coronary artery. Catheter was exchanged to a JR4 diagnostic catheter which could not engage the left coronary artery. Catheter was exchanged to a 4 Citizen [place] JL 3.5 diagnostic catheter which eventually was able to engage the left coronary artery. Angiography was performed in multiple views. Catheter was exchanged over the wire to a 4 Citizen [place] 3DRC catheter. Multiple attempts were made to [...] Study Details NSTEMI (non-ST elevated myocardial infarction) (CMS/[facility]) [I21.4] us Ky Ritter MD CV CARDIAC CATH PROCEDURES Fi nal Result * POCT glucose meter (10/31/2024 11:55 AM EDT) Glucose POC 82 70 - 105 mg/dL 10/31/2024 12:06 PM EDT [facility] ([facility]) Comment:[email or web address] Blood Capillary blood specimen / Unknown 10/31/2024 11:55 AM EDT 10/31/2024 12:06 PM EDT Narrative [facility] ([facility]) - 10/31/2024 12:06 PM EDT Waived Testing in the ED is performed under the ED CLIA certificate #[id number]. us Ky Ritter MD LAB BLOOD ORDERABLES Final Re sult [facility] ([facility]) [address] [place] [address] * LIMITED ECHO (TTE) W/ COLOR FLOW AND IMAGING AGENT (10/31/2024 11:40 AM EDT) Anatomical Region Laterality Modality Other 10/31/2024 11:1 6 AM EDT Narrative 10/31/2024 12:44 PM EDT 1 1 [facility] Heart Station [address] [place] [address] [phone] (fax) Echocardiogram-[facility] Name: JUAN KONG Study Date: 10/31/2024 11:16 AM B/P: 106 mmHg/67 mmHg HR: 70 bpm Date of : 1990 Location: [facility] Height: 66 in. Age: 34 year(s) Patient Room: [facility] Weight: 181 lb. Gender: Female Patient [...] minimal pericardial effusion. Procedure Staff Reading Group: [facility] Automatic Data Processing Planner: Raegan Cardona, BS, RDCS Ordering Physician: KY RITTER Wall Motion Scores -1 - hyperkinesia, 0 - not evaluated, 1 - normal, 2 - hypokinesia, 3 - akinesia, 4 - dyskinesia Procedure Note Griffin, Samar, MD - 10/31/2024 1 1 [facility] Heart Station [address] [place] [address] [phone] (fax) Echocardiogram-[facility] Name: JUAN KONG Study Date: 10/31/2024 11:16 AM B/P: 106 mmHg/67 mmHg HR: 70 bpm Date of : 1990 Location: [facility] Height: 66 in. Age: 34 [...] minimal pericardial effusion. Procedure Staff Reading Group: [facility] Automatic Data Processing Planner: DAVID Kearney, RDCS Ordering Physician: [place] RITTER Wall Motion Scores -1 - hyperkinesia, 0 - not evaluated, 1 - normal, 2 - hypokinesia, 3 - akinesia, 4 - dyskinesia us Ky Ritter MD CV ECHO PROCEDURES Final Resu lt * ECG 12 lead (10/31/2024 8:47 AM EDT) Ventricular Rate 69 BPM GE MUSE Atrial Rate 69 BPM GE MUSE TN Interval 146 ms GE MUSE QRS DURATION 86 ms GE MUSE QT Interval 460 ms GE MUSE QTC CALCULATION(BAZE TT) 492 ms GE MUSE P [place] 56 degrees GE MUSE R-[place] 55 degrees GE MUSE T Wave [place] 71 degrees GE MUSE 10/31/2024 8:43 AM [...] ECG 12 lead (10/31/2024 8:25 AM EDT) Pathologist [facility] Ventricular Rate 70 BPM GE MUSE Atrial Rate 70 BPM GE MUSE TN Interval 148 ms GE MUSE QRS DURATION 86 ms GE MUSE QT Interval 460 ms GE MUSE QTC CALCULATION(BAZE TT) 496 ms GE MUSE P [place] 61 degrees GE MUSE R-[place] 59 degrees GE MUSE T Wave [place] 77 degrees GE MUSE 10/31/2024 8:15 AM [...] Griffin Diaz (102) on 10/31/2024 10:34:26 PM Katie Altamirano MD ECG ORDERABLES Final Result GE MUSE * POCT glucose meter (10/31/2024 7:22 AM EDT) Glucose POC 87 70 - 105 mg/dL 10/31/2024 7:33 AM EDT [facility] ([facility]) Comment:[email or web address] Blood Capillary blood specimen / Unknown 10/31/2024 7:22 AM EDT 10/31/2024 7:33 AM EDT Narrative [facility] ([facility]) - 10/31/2024 7:33 AM EDT Waived Testing in the ED is performed under the ED CLIA certificate #[id number]. Ky Ritter MD LAB BLOOD ORDERABLES Final Re sult Performing Organization Address [facility]/ZIP Co de Phone Number [facility] ([facility]) [address] [place] [address] * Hemoglobin A1c (10/31/2024 6:27 AM EDT) Hemoglobin A1C 4.5 4.0 - 6.0 % 10/31/2024 1:13 PM EDT [facility] ([facility]) Estimated Average Glucose 82 mg/dL 10/31/2024 1:13 PM EDT [facility] ([facility]) Blood Blood sample taken from central line / Unknown Existing Catheter / Unknown 10/31/2024 6:27 AM EDT 10/31/2024 7:01 AM EDT Ky Ritter MD LAB BLOOD ORDERABLES Final Re sult [facility] ([facility]) [address] [place] [address] * (ABNORMAL) Lipid panel (10/31/2024 6:27 AM EDT) Triglycerides 84 <150 mg/dL 10/31/2024 9:31 AM EDT [facility] ([facility]) Comment: TRIGLYCERIDE REFERENCE RANGE: 20 YEARS AND OLDER CARDIOVASCULAR RISK LESS THAN 150 mg/dL LOW RISK 150 TO 199 mg/dL BORDERLINE RISK 200 mg/dL AND GREATER HIGH RISK Cholesterol 116(L) 120 - 200 mg/dL 10/31/2024 9:31 AM EDT [facility] ([facility]) LDL Calculated 56 0 - 160 mg/dL 10/31/2024 9:31 AM EDT [facility] ([facility]) HDL 43 23 - 92 mg/dL 10/31/2024 9:31 AM EDT [facility] ([facility]) Non HDL Cholesterol 73 10/31/2024 9:31 AM EDT [facility] ([facility]) Total VLDL-C 17 0 - 40 mg/dL 10/31/2024 9:31 AM EDT [facility] ([facility]) Cholesterol/HDL Ratio 2.7 mg/dL 10/31/2024 9:31 AM EDT [facility] ([facility]) Blood Blood sample taken from central line / Unknown Existing Catheter / Unknown 10/31/2024 6:27 AM EDT 10/31/2024 7:11 AM EDT Ky Ritter MD LAB BLOOD ORDERABLES Final Re sult [facility] ([facility]) [address] [place] [address] * (ABNORMAL) Magnesium (10/31/2024 6:27 AM EDT) Magnesium 1.8(L) 1.9 - 2.7 mg/dL 10/31/2024 8:29 AM EDT [facility] ([facility]) Blood Blood sample taken from central line / Unknown Existing Catheter / Unknown 10/31/2024 6:27 AM EDT 10/31/2024 7:11 AM EDT Ky Ritter MD LAB BLOOD ORDERABLES Final Re sult [facility] ([facility]) [address] [place] [address] * Anti-Xa (Heparin Level) (10/31/2024 6:27 AM EDT) [facility] Anti-Xa (Heparin) 0.53 0.3 - 0.7 IU/mL 10/31/2024 7:27 AM EDT [facility] ([facility]) Comment:Rivaroxaban and Apix aban will interfere with the anti Xa assay used to monitor UFH and LMWH. Blood Blood sample taken from central line / Unknown Existing Catheter / Unknown 10/31/2024 6:27 AM EDT 10/31/2024 6:41 AM EDT Sandeep Casey MD LAB BLOOD ORDERABLES Final Resul t [facility] ([facility]) [address] [place] [address] * (ABNORMAL) CBC (10/31/2024 6:27 AM EDT) [facility] Auto WBC 3.65(L) 4.00 - 10.60 10*3/uL 10/31/2024 7:19 AM EDT [facility] ([facility]) RBC 3.21(L) 3.80 - 5.00 10*6/uL 10/31/2024 7:19 AM EDT [facility] ([facility]) Hemoglobin 9.4(L) 12.0 - 15.0 g/dL 10/31/2024 7:19 AM EDT [facility] ([facility]) Hematocrit 29.2(L) 36.0 - 45.0 % 10/31/2024 7:19 AM EDT [facility] ([facility]) MCV 91.0 82.0 - 98.0 fL 10/31/2024 7:19 AM EDT [facility] ([facility]) MCH 29.3 27.0 - 33.0 pg 10/31/2024 7:19 AM EDT [facility] ([facility]) MCHC 32.2 32.0 - 35.0 g/dL 10/31/2024 7:19 AM EDT [facility] ([facility]) RDW 13.3 11.5 - 15.0 % 10/31/2024 7:19 AM EDT [facility] ([facility]) Platelets 235 150 - 400 10*3/uL 10/31/2024 7:19 AM EDT [facility] ([facility]) Blood Blood sample taken from central line / Unknown Existing Catheter / Unknown 10/31/2024 6:27 AM EDT 10/31/2024 7:01 AM EDT us Debbie Luna [facility] LAB BLOOD ORDERABLES Final Resu lt [facility] ([facility]) [address] [place] [address] * (ABNORMAL) Basic metabolic panel (10/31/2024 6:27 AM EDT) Sodium 140 136 - 145 mmol/L 10/31/2024 7:52 AM EDT [facility] ([facility]) Potassium 4.0 3.5 - 5.1 mmol/L 10/31/2024 7:52 AM EDT [facility] ([facility]) Chloride 110(H) 98 - 107 mmol/L 10/31/2024 7:52 AM EDT [facility] ([facility]) CO2 26 21 - 31 mmol/L 10/31/2024 7:52 AM EDT [facility] ([facility]) BUN 5(L) 7 - 25 mg/dL 10/31/2024 7:52 AM EDT [facility] ([facility]) Creatinine 0.60 0.60 - 1.20 mg/dL 10/31/2024 7:52 AM EDT [facility] ([facility]) Glucose 83 70 - 100 mg/dL 10/31/2024 7:52 AM EDT [facility] ([facility]) Calcium 7.7(L) 8.6 - 10.3 mg/dL 10/31/2024 7:52 AM EDT [facility] ([facility]) Anion Gap 8 7 - 20 mmol/L 10/31/2024 7:52 AM EDT [facility] ([facility]) eGFR 120.0 >60.0 mL/min/1. 73m*2 10/31/2024 7:52 AM EDT [facility] ([facility]) Comment:[facility] s estimated glomerular filtration rate (eGFR) will [...] individuals. BUN/Creatinine Ratio 8.3 10/16 7:52 AM EDT [facility] ([facility]) Blood Blood sample taken from central line / Unknown Existing Catheter / Unknown 10/31/2024 6:27 AM EDT 10/31/2024 7:11 AM EDT [facility] LAB BLOOD ORDERABLES Final Resu lt [facility]) [address] [place] [id number] * (ABNORMAL) High Sensitivity Troponin I (10/31/2024 6:27 AM EDT) High Sensitivity Troponin I 61(HH) <15 ng/L 10/31/2024 7:58 AM EDT [facility] ([facility]) Blood Blood sample taken from central line / Unknown Existing Catheter / Unknown 10/31/2024 6:27 AM EDT 10/31/2024 7:11 AM EDT us AWAK LAB BLOOD ORDERABLES Final Resu lt Performing Organization Address City/[facility]/ZIP Co de Phone Number [facility]) [address] [place], [place] [id number] * Anti-Xa (Heparin Level) (10/31/2024 1:38 AM EDT) [facility] Anti-Xa (Heparin) 0.47 0.3 - 0.7 IU/mL 10/31/2024 2:03 AM EDT [facility] ([facility]) Comment:Rivaroxaban and Apix aban will interfere with the anti Xa assay used to monitor UFH and LMWH. Blood Venous blood specimen / Unknown Existing Catheter / Unknown 10/31/2024 1:38 AM EDT 10/31/2024 1:42 AM EDT Sandeep Casey MD LAB BLOOD ORDERABLES Final Resul t Performing Organization Address [facility]/ZIP Co de Phone Number [facility]) [address] [place] [address] * (ABNORMAL) High Sensitivity Troponin I (10/31/2024 1:38 AM EDT) [facility] High Sensitivity Troponin I 129(HH) <15 ng/L 10/31/2024 2:33 AM EDT [facility] ([facility]) Blood Blood sample taken from central line / Unknown Existing Catheter / Unknown 10/31/2024 1:38 AM EDT 10/31/2024 1:44 AM EDT [facility] BLOOD ORDERABLES Final Resu lt Performing Organization Address City/[facility]/ZIP Co de Phone Number [facility]) [address] [place] [address] * POCT glucose meter (10/30/2024 9:12 PM EDT) [facility] Glucose POC 97 70 - 105 mg/dL 10/30/2024 9:23 PM EDT [facility]) Comment:[email or web address] Blood Capillary blood specimen / Unknown 10/30/2024 9:12 PM EDT 10/30/2024 9:23 PM EDT Narrative [facility] ([facility]) - 10/30/2024 9:23 PM EDT Waived Testing in the ED is performed under the ED CLIA certificate #[id number]. Sandeep Casey MD LAB BLOOD ORDERABLES Final Resul t [facility] ([facility]) [address] [place] [address] * ECG 12 lead (10/30/2024 8:00 PM EDT) Ventricular Rate 83 BPM GE MUSE Atrial Rate 83 BPM GE MUSE TN Interval 144 ms GE MUSE QRS DURATION 88 ms GE MUSE QT Interval 410 ms GE MUSE QTC CALCULATION(BAZE TT) 482 ms GE MUSE P [place] 62 degrees GE MUSE R-[place] 19 degrees GE MUSE T Wave [place] 56 degrees GE MUSE 10/30/2024 7:48 PM [...] Diaz (102) on 10/31/2024 9:14:03 PM Debbie Luna CNP ECG ORDERABLES Final Result Performing Organization Address City/[facility]/ZIP Co de Phone Number GE MUSE * (ABNORMAL) Anti-Xa (Heparin Level) (10/30/2024 7:11 PM EDT) Anti-Xa (Heparin) <0.10(LL) 0.3 - 0.7 IU/mL 10/30/2024 8:27 PM EDT [facility] ([facility]) Comment:Rivaroxaban and Apix aban will interfere with the anti Xa assay used to monitor UFH and LMWH. Blood Venous blood specimen / Unknown Existing Catheter / Unknown 10/30/2024 7:11 PM EDT 10/30/2024 7:18 PM EDT Sandeep Casey MD LAB BLOOD ORDERABLES Final Resul t Performing Organization Address City/[facility] Co de Phone Number [facility]) [address] [place], [place] [id number] * (ABNORMAL) aPTT - baseline (10/30/2024 7:11 PM EDT) aPTT 42.0(H) 25.0 - 35.0 Seconds 10/30/2024 7:48 PM EDT [facility] ([facility]) Comment:Clinical significanc e of the APTT is questionable in the presence of heparin. Blood Venous blood specimen / Unknown Existing Catheter / Unknown 10/30/2024 7:11 PM EDT 10/30/2024 7:18 PM EDT Wepa DIRECTOR DERMATOLOGY LAB BLOOD ORDERABLES Final Resu lt Performing Organization Address [facility] Co de Phone Number [facility]) [address] [place] [address] * TSH3 Reflex to FT4 (10/30/2024 7:11 PM EDT) TSH 3.46 0.34 - 5.60 mIU/L 10/30/2024 8:01 PM EDT [facility] ([facility]) Blood Venous blood specimen / Unknown Existing Catheter / Unknown 10/30/2024 7:11 PM EDT 10/30/2024 7:18 PM EDT [facility] LAB BLOOD ORDERABLES Final Resu lt [facility] ([facility]) [address] [place] [address] * (ABNORMAL) CBC auto differential (10/30/2024 7:11 PM EDT) Auto WBC 4.32 4.00 - 10.60 10*3/uL 10/30/2024 7:51 PM EDT [facility] ([facility]) RBC 3.30(L) 3.80 - 5.00 10*6/uL 10/30/2024 7:51 PM EDT [facility] ([facility]) Hemoglobin 9.7(L) 12.0 - 15.0 g/dL 10/30/2024 7:51 PM EDT [facility] ([facility]) Hematocrit 29.6(L) 36.0 - 45.0 % 10/30/2024 7:51 PM EDT [facility] ([facility]) MCV 89.7 82.0 - 98.0 fL 10/30/2024 7:51 PM EDT [facility] ([facility]) MCH 29.4 27.0 - 33.0 pg 10/30/2024 7:51 PM EDT [facility] ([facility]) MCHC 32.8 32.0 - 35.0 g/dL 10/30/2024 7:51 PM EDT [facility] ([facility]) RDW 13.4 11.5 - 15.0 % 10/30/2024 7:51 PM EDT [facility] ([facility]) Neutrophils % 44.2 40.0 - 72.0 % 10/30/2024 7:51 PM EDT [facility] ([facility]) Lymphocytes % 44.9 20.0 - 45.0 % 10/30/2024 7:51 PM EDT [facility] ([facility]) Monocytes % 7.9 5.0 - 12.0 % 10/30/2024 7:51 PM EDT [facility] ([facility]) Eosinophils % 2.1 0.0 - 6.0 % 10/30/2024 7:51 PM EDT [facility] ([facility]) Basophils % 0.9 0.0 - 1.0 % 10/30/2024 7:51 PM EDT [facility] ([facility]) Neutrophils Absolute 1.91 1.60 - 7.60 10*3/uL 10/30/2024 7:51 PM EDT [facility] ([facility]) Lymphocytes Absolute 1.94 1.20 - 4.00 10*3/uL 10/30/2024 7:51 PM EDT [facility] ([facility]) Monocytes Absolute 0.34 0.10 - 1.00 10*3/uL 10/30/2024 7:51 PM EDT [facility] ([facility]) Eosinophils Absolute 0.09 0.00 - 0.50 10*3/uL 10/30/2024 7:51 PM EDT [facility] ([facility]) Basophils Absolute 0.04 0.00 - 0.20 10*3/uL 10/30/2024 7:51 PM EDT [facility] ([facility]) Platelets 272 150 - 400 10*3/uL 10/30/2024 7:51 PM EDT [facility] ([facility]) nRBC % 0.0 0 % 10/30/2024 7:51 PM EDT [facility] ([facility]) Immature Granulocytes % 0.0 0.0 - 1.0 % 10/30/2024 7:51 PM EDT [facility] ([facility]) Immature Granulocytes Absolute 0.00 0.00 - 0.20 10*3/uL 10/30/2024 7:51 PM EDT [facility] ([facility]) Blood Venous blood specimen / Unknown Existing Catheter / Unknown 10/30/2024 7:11 PM EDT 10/30/2024 7:18 PM EDT us Debbie Luna [facility] BLOOD ORDERABLES Final Resu lt [facility] ([facility]) [address] [place] [address] * B-type natriuretic peptide (10/30/2024 7:11 PM EDT) BNP 77 0 - 100 pg/mL 10/30/2024 7:49 PM EDT [facility] ([facility]) Blood Venous blood specimen / Unknown Existing Catheter / Unknown 10/30/2024 7:11 PM EDT 10/30/2024 7:18 PM EDT Debbie Luna [facility] BLOOD ORDERABLES Final Resu lt [facility] ([facility]) [address] [place] [address] * (ABNORMAL) Protime-INR (10/30/2024 7:11 PM EDT) Protime 14.8 12.3 - 14.8 Seconds 10/30/2024 7:47 PM EDT [facility] ([facility]) INR 1.15(H) 0.90 - 1.10 10/30/2024 7:47 PM EDT [facility] ([facility]) Comment: [facility] RECOMMENDED INR FOR [facility] THERAPY [...] 7:11 PM EDT 10/30/2024 7:18 PM EDT [facility] BLOOD ORDERABLES Final Resu lt [facility]) [address] [place] [address] * Phosphorus (10/30/2024 7:11 PM EDT) Phosphorus 4.4 2.5 - 5.0 mg/dL 10/30/2024 7:46 PM EDT [facility]) Blood Venous blood specimen / Unknown Existing Catheter / Unknown 10/30/2024 7:11 PM EDT 10/30/2024 7:18 PM EDT [facility] BLOOD ORDERABLES Final Resu lt Performing Organization Address City/[facility]/ZIP Co de Phone Number [facility]) [address] [place] [address] * (ABNORMAL) HIGH SENSITIVITY TROPONIN I (10/30/2024 7:11 PM EDT) Pathologist [facility] High Sensitivity Troponin I 337(HH) <15 ng/L 10/30/2024 7:53 PM EDT [facility]) Blood Venous blood specimen / Unknown Existing Catheter / Unknown 10/30/2024 7:11 PM EDT 10/30/2024 7:18 PM EDT [facility] LAB BLOOD ORDERABLES Final Resu lt [facility]) [address] [place], [place] [id number] * (ABNORMAL) Magnesium (10/30/2024 7:11 PM EDT) Magnesium 1.7(L) 1.9 - 2.7 mg/dL 10/30/2024 7:46 PM EDT [facility]) Blood Venous blood specimen / Unknown Existing Catheter / Unknown 10/30/2024 7:11 PM EDT 10/30/2024 7:18 PM EDT us Debbie Luna [facility] BLOOD ORDERABLES Final Resu lt [facility] ([facility]) [address] [place] [address] * (ABNORMAL) Comprehensive metabolic panel (10/30/2024 7:11 PM EDT) Sodium 139 136 - 145 mmol/L 10/30/2024 7:46 PM EDT [facility] ([facility]) Potassium 3.7 3.5 - 5.1 mmol/L 10/30/2024 7:46 PM EDT [facility] ([facility]) Chloride 110(H) 98 - 107 mmol/L 10/30/2024 7:46 PM EDT [facility] ([facility]) CO2 23 21 - 31 mmol/L 10/30/2024 7:46 PM EDT [facility] ([facility]) Anion Gap 10 7 - 20 mmol/L 10/30/2024 7:46 PM EDT [facility] ([facility]) BUN 5(L) 7 - 25 mg/dL 10/30/2024 7:46 PM EDT [facility] ([facility]) Creatinine 0.64 0.60 - 1.20 mg/dL 10/30/2024 7:46 PM EDT [facility] ([facility]) BUN/Creatinine Ratio 7.8 10/16 7:46 PM EDT [facility] ([facility]) Glucose 101(H) 70 - 100 mg/dL 10/30/2024 7:46 PM EDT [facility] ([facility]) Calcium 7.8(L) 8.6 - 10.3 mg/dL 10/30/2024 7:46 PM EDT [facility] ([facility]) AST 19 13 - 39 U/L 10/30/2024 7:46 PM EDT [facility] ([facility]) ALT (SGPT) 7 7 - 52 U/L 10/30/2024 7:46 PM EDT [facility] ([facility]) Alkaline Phosphatase 45 34 - 104 U/L 10/30/2024 7:46 PM EDT [facility] ([facility]) Total Protein 5.0(L) 6.0 - 8.3 g/dL 10/30/2024 7:46 PM EDT [facility] ([facility]) Albumin 3.2(L) 3.5 - 5.7 g/dL 10/30/2024 7:46 PM EDT [facility] ([facility]) Total Bilirubin 0.2(L) 0.3 - 1.0 mg/dL 10/30/2024 7:46 PM EDT [facility] ([facility]) eGFR 118.1 >60.0 mL/min/1. 73m*2 10/30/2024 7:46 PM EDT [facility] ([facility]) Comment:[facility] s estimated glomerular filtration rate (eGFR) will [...] PM EDT 10/30/2024 7:18 PM EDT Debbie Luna CNP LAB BLOOD ORDERABLES Final Resu lt [facility] ([facility]) [address] [place] [address] documented in this encounter Visit Diagnoses Diagnosis [...] complication, without long-term current use of insulin ([facility]) Primary hypertension Unspecified essential hypertension Other hyperlipidemia Asthma Unspecified asthma IBS (irritable bowel syndrome) Irritable bowel syndrome 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 Protein calorie malnutrition Unspecified protein-calorie malnutrition Prolonged Q-T interval on ECG Nonspecific abnormal electrocardiogram (ECG) (EKG) Spontaneous dissection of coronary artery Hematoma Contusion of unspecified site NSTEMI (non-ST elevated myocardial infarction) ([facility]) Acute myocardial infarction, subendocardial infarction, episode of care unspecified NSTEMI (non-ST elevated myocardial infarction) ([facility]) Acute myocardial infarction, subendocardial infarction, episode of care unspecified Angina pectoris, unstable ([facility]) Intermediate coronary syndrome Spontaneous dissection of coronary artery documented in this encounter Admitting Diagnoses Diagnosis Chest pain Unspecified chest pain NSTEMI (non-ST elevated myocardial infarction) ([facility]) Acute myocardial infarction, subendocardial infarction, episode of [...] over 16 Hours, Cyclic TPN, Starting on Wed11/04/24 at 2200, For 24 hours, NOTE: 158.5 [...] Hours, Every 72 hours, First dose on [place] 11/05/24 at 1715, For 99 days, Fentanyl [...] 25 mcg 25 mcg, intravenous, Once, On [facility] 11/02/24 at 1915, For 1 dose, Intraprocedure Given 11/02/2024 7:15 PM EDT 25 mcg fentaNYL (Sublimaze) injection 25 mcg 25 mcg, intravenous, Once, On [facility] 11/02/24 at 1930, For 1 dose, Intraprocedure [...] on Wed11/06/24 at 2200, For 99 days Given 11/06/2024 10:05 PM EDT 50 mcg fentaNYL (Sublimaze) injection 50 mcg 50 mcg, intravenous, Every 4 hours PRN, severe pain (8-10 pain score), use only if oral route not available or oral medications ineffective., Starting on Wed11/06/24 at 2229 Given 11/07/2024 6:12 AM EDT [...] Every 8 hours scheduled, First dose on Wed11/01/24 at 2200, For 99 days, Phase II/On [...] EDT 15 Units/kg/hr 12.3 mL/ hr HYDROcodone-acetaminophen ([place]) 5-325 mg per tablet 1 tablet 1 tablet, oral, Every 4 hours PRN, severe pain (8-10 pain score), Starting on 10/30/24 at 2000, For 99 days Given 11/02/2024 10:06 AM EDT 1 tablet Given 11/02/2024 5:56 AM EDT 1 tablet Given 11/01/2024 5:55 PM EDT 1 tablet HYDROcodone-acetaminophen ([place]) 5-325 mg per tablet 1 tablet 1 tablet, oral, Every 4 hours PRN, moderate pain (4-7 pain score), Starting on [place] 11/02/24 at 1331, For 96 days Given 11/03/2024 10:11 AM EDT 1 table t HYDROcodone-acetaminophen ([place]) 5-325 mg per tablet 2 tablet 2 tablet, oral, Every 4 hours PRN, severe pain (8-10 pain score), Starting on [place] 11/02/24 at 1331, For 96 days Given 11/07/2024 [...] 2 mg 2 mg, intravenous, Once, On 11/07/24 at 1215, For 1 dose Given 11/07/2024 [...] on Wed11/06/24 at 1600, For 99 days Given 11/07/2024 [...] [place] 11/02/24 at 2356, For 99 days Given 11/06/2024 [...] (4-7 pain score), Starting on Wed10/30/24 at 2001, For 99 days Given 11/05/2024 1:56 PM [...] PRN, nausea, vomiting, Starting on Wed10/30/24 at 2002, For 99 days, Trimethobenzamide is restricted when [...] 0900 (Given - Provider: Patricia Butt RN) atorvastatin (Lipitor) tablet 80 mg (CANCELED) 80 mg, oral, Nightly, First dose (after last modification) on Wed11/03/24 at 2200, For 96 doses 2336 (Given - Provider: Radha Godoy RN - Comment: patient is on Carafate must seperate medications by two hours) 210 (Given - Provider: Christine Baker, DEE) clopidogrel (Plavix) tablet 75 mg 75 mg, oral, Daily, First dose (after last reorder) on Wed11/03/24 at 1300, For 99 days 1021 (Given - Provider: Joanna French RN) 0933 (Given - Provider: Fang Oreilly, DEE) 0900 (Given - Provider: Patricia Butt, RN) enoxaparin (Lovenox) syringe 30 mg 30 mg, subcutaneous, 2 times daily, First dose on Wed11/03/24 at 1000, For 99 days 1021 (Given - Provider: Joanna French RN)2336 (Given - Provider: Radha Godoy RN - Comment: patient is on Carafate must seperate medications by two hours) 0932 (Given - Provider: Fang Oreilly, DEE)210 (Given - Provider: Christine Baker, RN) 0855 (Given - Provider: Patricia Butt, DEE) ergocalciferol (Vitamin D-2) capsule 50,000 Units (COMPLETED) 50,000 Units, oral, Weekly, First dose on Wed11/05/24 at 0715, For 1 day 0832 (Given - Provider: Joanna French, DEE) escitalopram (Lexapro) tablet 20 mg 20 mg, oral, Daily, First dose (after last modification) on Wed11/03/24 at 1000, For 96 doses 1021 (Given - Provider: Joanna French RN) 0933 (Given - Provider: Fang Oreilly, DEE) 0900 (Given - Provider: Patricia Butt, DEE) fentaNYL (Duragesic) 12 mcg/hr 1 patch(Linked Group [...] Joanna French RN - Comment: right shoulder) 1709 (Due: Medication Removed - Provider: Automatic Discharge Provider - Comment: Time automatically adjusted from order being discontinued) hydrocortisone (Cortef) tablet 10 mg 10 mg, oral, Daily, First dose on Wed10/31/24 at 1000, For 99 days 1022 (Given - Provider: Joanna French RN) 0934 (Given - Provider: Fang Oreilly, DEE) 0855 (Given - Provider: Patricia Butt RN) [...] BG greater than 400 instructions: Call Physician 2200 (Not Given - Provider: Radha Godoy RN - Reason: Order parameters not met) 2200 (Not Given - Provider: Christine Baker RN [...] Godoy RN) 0608 (Given - Provider: Christine Bakre RN) lidocaine (Lidoderm) 5 % patch 1 [...] 383 doses 1021 (Given - Provider: Joanna French RN)1356 (Given - Provider: Joanna French RN)1833 (Given [...] Radha Godoy RN)1704 (Given - Provider: Patricia Butt, DEE) 0608 (Given - Provider: Christine Baker, DEE)1700 (Given - Provider: Patricia Butt RN) polyethylene glycol (Glycolax) packet 17 g 17 g, oral, Daily, First dose on Wed11/06/24 at 1600, For 99 days 1704 (Given - Provider: Patricia Butt, RN) 0855 (Given - Provider: Patricia Butt, DEE) prochlorperazine (Compazine) injection 10 mg 10 mg, [...] take this dose)0832 (Given - Provider: Joanna French, RN)1026 (Given - Provider: Joanna French, RN)1639 (Given - Provider: Joanna French RN)2106 (Given - Provider: Radha Godoy RN) 0934 (Given - Provider: Fang Oreilly, RN)1100 (Not Given - Provider: Fang Oreilly RN - Reason: Patient/family refused - Comment: took 7 am dose late)1704 (Given - Provider: Patricia Butt RN)2107 (Given - Provider: Christine Baker RN) 0608 (Given - Provider: Christine Baker, RN)0856 (Given - Provider: Patricia Butt, RN)1610 (Given - Provider: Patricia Butt RN) topiramate (Topamax) tablet 100 mg 100 mg, oral, 2 times daily, First dose (after last modification) on Wed11/03/24 at 1000, For 191 doses, Crushing/splitting of tablets is not recommended due to bitter taste. 1023 (Given - Provider: Joanna French RN)2336 (Given - Provider: Radha Godoy RN - Comment: patient is on Carafate must seperate medications by two hours) 0934 (Given - Provider: Fang Oreilly, DEE)2106 (Given - Provider: Christine Baker, DEE) 0900 (Given - Provider: Patricia Butt RN) [...] Radha Godoy RN)1302 (Given - Provider: Fang Oreilly RN)2147 (Given - Provider: Christine Baker RN) 0657 [...] wheezing, shortness of breath, Starting on [place] 11/09/24 at 1316 dextrose 50 % in water [...] on Wed10/31/24 at 1107, For 99 days 0400 (Given - Provider: Radha Godoy, DEE)1030 (Given - Provider: Joanna French, DEE)1634 (Given - Provider: Joanna French, RN)2249 (Given - Provider: Radha Godoy, DEE) 0550 (Given - Provider: Radha Godoy RN)1058 (Given - Provider: Fang Oreilly RN)1704 (Given - Provider: Patricia Butt RN) diphenhydrAMINE (BENADryl) injection 50 mg 50 mg, intravenous, Every 6 hours PRN, nausea/vomiting, Starting on Wed11/06/24 at 2135, For 93 days 2313 (Given - Provider: Christine Baker RN) 0613 (Given - Provider: Christine Baker RN)1201 (Given - Provider: Patricia Butt RN) fentaNYL (Sublimaze) injection 25 mcg (CANCELED) 25 mcg, intravenous, Every 2 hour PRN, severe pain (8-10 pain score), chest pain, Starting on Wed11/04/24 at 1528, For 99 days 0753 (Given [...] Fang Oreilly, DEE)1100 (Given - Provider: Fang Oreilly RN)1241 (Given - Provider: Fang Oreilly RN)1444 (Given - Provider: Patricia Butt RN)1704 (Given - Provider: Patricia Butt RN)1913 (Given - Provider: Patricia Butt RN) fentaNYL (Sublimaze) injection 50 mcg (CANCELED) 50 mcg, intravenous, Every 2 hour PRN, severe pain (8-10 pain score), use only if oral route not available or oral medications ineffective., Starting on Wed11/06/24 at 2200, For 99 days 2205 (Given - Provider: Christine Baker RN - [...] IV fluids or tube feeding bolus) HYDROcodone-acetaminophen ([place]) 5-325 mg per tablet 1 tablet(Linked Group 4) 1 tablet, oral, Every 4 hours PRN, moderate pain (4-7 pain score), Starting on [place] 11/02/24 at 1331, For 96 days 0401 (See Alternative - Provider: Radha Godoy RN)1138 (See Alternative - Provider: Joanna French RN)1604 (See Alternative - Provider: Joanna French RN) 0553 (See Alternative - Provider: Radha Godoy RN)0932 (See Alternative - Provider: Fang Oreilly RN)1300 (See Alternative - Provider: Fang Oreilly RN) 0909 (See Alternative - Provider: Patricia Butt RN)1449 (See Alternative - Provider: Patricia Butt RN) HYDROcodone-acetaminophen ([place]) 5-325 mg per tablet 2 tablet(Linked Group 4) 2 tablet, oral, Every 4 hours PRN, severe pain (8-10 pain score), Starting on [place] 11/02/24 at 1331, For 96 days 0401 (Given - Provider: Radha Godoy RN)1138 (Given - Provider: Joanna French RN)1604 (Given - Provider: Joanna French RN) 0553 (Given - Provider: Radha Godoy RN)0932 (Given - Provider: Fang Oreilly RN)1300 (Given - Provider: Fang Oreilly RN) 0909 (Given - Provider: Patricia Butt RN)1449 (Given - Provider: Patricia Butt RN) HYDROmorphone (Dilaudid) injection 0.2 mg (CANCELED) 0.2 mg, intravenous, Every 3 hours PRN, use only if oral route not available or oral medications ineffective., moderate-severe pain (4-10 pain score), Starting on Wed11/03/24 at 1429, For 99 days 0638 (Given - Provider: Radha Godoy, RN) hydrOXYzine pamoate (Vistaril) capsule 50 mg [...] if possible. 0630 (Given - Provider: Radha Godoy, DEE)1400 (Given - Provider: Joanna French, DEE)2347 (Given - Provider: Radha Godoy, DEE) melatonin tablet 5 mg 5 mg, oral, Nightly PRN, sleep, Starting on Wed10/30/24 at 1913, For 99 days metoclopramide (Reglan) tablet 10 mg 10 mg, oral, Daily PRN, nausea and vomiting, Starting on Wed10/30/24 at 2000, For 99 days 1833 (Given - Provider: Joanna French, DEE) 0933 (Given - Provider: Fang Oreilly, DEE) [...] Radha Godoy RN)1134 (Given - Provider: Joanna French RN) potassium chloride CR (Klor-Con M20) ER tablet [...] moderate pain (4-7 pain score), Starting on 10/30/24 at 2000, For 99 days 1356 (Given - Provider: Joanna French RN) trimethobenzamide (Tigan) injection 200 mg 200 mg, intramuscular, Every 6 hours PRN, nausea, vomiting, Starting on 10/30/24 at 2002, For 99 days, Trimethobenzamide is restricted when [...] or tube feeding bolus) Group 4: HYDROcodone-acetaminophen ([place]) 5-325 mg per tablet 1 tabletJump to med 1 tablet, oral, Every 4 hours PRN, moderate pain (4-7 pain score), Starting on [facility] 11/02/24 at 1331, For 96 days Or HYDROcodone-acetaminophen ([place]) 5-325 mg per tablet 2 tabletJump to med 2 tablet, oral, Every 4 hours PRN, severe pain (8-10 pain score), Starting on [facility] 11/02/24 at 1331, For 96 days Group 5: Insert peripheral IV (CANCELED) Once, On Wed10/30/24 at 1914, For 1 occurrence And Saline lock IV (CANCELED) Once, On Wed10/30/24 at 191, For 1 occurrence And sodium chloride flush 10 mLJump to med 10 mL, intravenous, Every 8 hours PRN, line care, Starting on Wed10/30/24 at 1913, For 99 days documented in this encounter Care Teams Water Service Supervisor Relationship Specialty Start Date End Date Thomas Alas MD [facility] [place] [place] [address] PCP - General Family Medicine 08/17/24 documented as of this encounter
--- OUTSIDE RECORDS SUMMARY | 2024-10-31 05:45 | XMS_ITS ---
Author Organization The [facility] in [place] Address [address] [place] [address] Care Team Providers Care Elevator Dispatcher Name Role Phone Brandyn Alas Primary Care Provider REASON FOR VISIT ER F/U Encounters Encounter Location Date Provider Diagnosis [facility] [address] [place] [address] 10/31/2024 Brandyn Alas Plan Of Treatment Next Appt Details Provider Name:Brandyn Alas, 10:00:00 AM, [address] [place], [address], Progress Notes * Abbey KONG MDOB:1990 (34 yo F)Acc No.[id number]:10/31/2024 UNLOCKED PROGRESS NOTE Progress Note Patient: Jarrod COVARRUBIAS [place] Sandra Provider: Du Alas (MD SEJAL :1990 A ge:34 Y S ex:Female Date:10/31/2024 Address:[address] [place], [place] [phone] Subjective: * Chief Complaints: * 1 . ER F/U. * Medical History: Objective: * Vitals: Assessment: Plan: * Treatment: * * Electronic signature of Brandyn Alas MD, [id number] on 11/19/2024 at 03:15 AM EDT Sign off status: Pending Visit Status: N /S N/C (No Show/No Charge) * Provider: Du Alas ([facility])MD Date: 0 10/31/2024 Generated for Hailey jordan/Ari/Chance on: 1 03:15 AM EDT
--- OUTSIDE RECORDS SUMMARY | 2024-11-03 10:15 | XMS_ITS ---
Author Organization [facility] Address [address] [place] [address] Care Team Providers Care Fuel House Attendant Name Role Phone Ashley Bryson Primary Care Provider [phone] Christina Dominguez Unavailable REASON FOR VISIT DEBRIDEMENT Encounters Encounter Location Date Provider Diagnosis [facility] [address] [place] [address] 11/03/2024 Christina Dominguez Plan Of Treatment No Information Progress Notes * JUAN KONG MDOB:1990 (34 yo F)Acc No.[id number]:11/03/2024 Patient: Jarrod COVARRUBIAS JUAN M Provider: Lesia Dominguez :1990 A ge:34 Y S ex:Female Date:11/03/2024 Address:[address] [place], [place] [phone] Pcp:Ashley Bryson Subjective: * Chief Complaints: * 1 . DEBRIDEMENT. * Medical History: Objective: * Vitals: Assessment: Plan: * Treatment: * Images: * Electronic signature of Jared Dominguez on 11/19/2024 at 09:22 AM EDT Sign off status: Pending * Provider: Lesia Dominguez Date: 0 11/03/2024 Generated for Hailey jordan/Ari/eTransmitting on: 1 09:22 AM EDT
--- OUTSIDE RECORDS SUMMARY | 2024-11-08 12:31 | XMS_ITS | Encounter Summary ---
Author Organization [facility] 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 Role Phone Thomas Alas MD Primary Care Provider [phone] Reason for Visit * Reason Comments chest tightness Chest tightness inte rmittent Encounter Details Date Type Department Care Team (Late st Contact Info) Description 11/08/2024 12:31 PM EDT - 11/09/2024 8:42 AM EDT Emergency [facility] Emergency Department [address] [place] [address] Oc Graham MD [address] [facility] [address] [place] [address] Chest pain, unspecified type (Primary Dx) Discharge Disposition: Another Acute Care Hospital Social History Tobacco Use Types Packs/Day Years [...] you are drinking? Patient does not drink 10/30/202 3 Q3: How often do you have si x or more drinks on one occasion? Never 12/14/2022 AUDIT-C Answer Date Recorded Q1: How often do you have a drink containing alcohol? Never 11/08/2024 Q2: How many drinks containi ng alcohol do you have on a typical day when you are drinking? Patient does not drink Q3: How often do you have si x or more drinks on one occasion? Never 11/08/2024 Interpersonal Safety Domain Source: IP Abuse Scr [...] on file documented as of this encounter Last Filed Vital Signs Vital Sign Reading Time Taken Comments Blood Pressure 105/64 11/09/2024 7:30 AM EDT Pulse 80 11/09/2024 7:30 AM EDT Temperature 36.5 C (97.7 F) 11/08/2024 12:42 PM EDT Respiratory Rate 25 11/09/2024 7:30 AM EDT Oxygen Saturation 100% 11/09/2024 7:30 AM EDT Inhaled Oxygen Concentration - - Weight 85.3 kg (188 lb) 11/08/2024 12:35 PM EDT Height 165.1 cm (5' 5 ) 11/08/2024 12:35 PM EDT Body Mass Index 31.28 11/08/2024 12:35 PM EDT documented in this encounter Functional Status documented as of this encounter Medications at Time of Discharge hydrocortisone (CORTEF) 10 MG tablet Take 1 tablet by mouth daily 5 verapamil (CALAN) 40 MG tablet Take 1 tablet by mouth 5 02/12/20 25 rosuvastatin (CRESTOR) 40 MG tablet Take 1 tablet by mouth nightly 5 02/15/20 25 metoclopramide (REGLAN) 10 MG tablet Take 1 tablet by mouth 2 times daily as needed 4 12/03/19 25 acetaminophen (TYLENOL) 325 MG tablet Take 2 tablets by mouth every 6 hours as needed for Pain aspirin 81 MG chewable tablet Take 1 tablet by mouth daily clopidogrel (PLAVIX) 75 MG tablet Take 1 tablet by mouth daily HYDROcodone-acetami nophen (NORCO) 5-325 MG per tablet Take 2 tablets by mouth every 6 hours as needed for Pain. hydrOXYzine HCl (ATARAX) 25 MG tablet Take 1 tablet by mouth 3 times daily as needed for Itching (at night) metoprolol succinate (TOPROL XL) 25 MG extended release tablet Take 1 tablet by mouth daily traMADol (ULTRAM) 50 MG tablet Take 1 tablet by mouth every 6 hours as needed for Pain. pantoprazole sodium (PROTONIX) 40 MG PACK packet Take 1 packet by mouth every morning (before breakfast) 30 each 3 3 mirtazapine (REMERON) 15 MG tablet Take 1 tablet by mouth nightly liothyronine (CYTOMEL) 5 MCG tablet Take 1 capsule by mouth daily escitalopram (LEXAPRO) 20 MG tablet Take 1 tablet by mouth daily levothyroxine (SYNTHROID) 75 MCG tablet Take 1 tablet by mouth Daily topiramate (TOPAMAX) 100 MG tablet Take 0.5 tablets by mouth 2 times daily fentaNYL (DURAGESIC) 12 MCG/HR APPLY TO SKIN TRANSDERMALLY EVERY 3 DAYS WITH A 25MCG PATCH 5 scopolamine (TRANSDERM-SCOP) transdermal patch Place 1 patch onto the skin every 72 hours 10 patch 3 ondansetron (ZOFRAN-ODT) 4 MG disintegrating tablet Take 1 tablet by mouth 3 times daily as needed for Nausea or Vomiting 21 tablet 3 busPIRone (BUSPAR) 10 MG tablet Take 1 tablet by mouth 2 times daily promethazine (PHENERGAN) 25 MG tablet Take 1 tablet by mouth every 6 hours as needed for Nausea DULoxetine (CYMBALTA) 30 MG extended release capsule Take 1 capsule by mouth 2 times daily documented as of this encounter Plan of Treatment Not on file documented as of this encounter Procedures Procedure Name Priority Date/Time Associated Diagnosis Comments POCT GLUCOSE Routine 11/08/2024 11:06 PM EDT POCT GLUCOSE STAT 11/08/2024 11:06 PM EDT POCT GLUCOSE STAT 11/08/2024 8:09 PM EDT POCT GLUCOSE Routine 11/08/2024 7:55 PM EDT TROPONIN STAT 11/08/2024 6:38 PM EDT POCT GLUCOSE Routine 11/08/2024 4:04 PM EDT EKG 12-LEAD STAT 11/08/2024 4:01 PM EDT POCT GLUCOSE Routine 11/08/2024 2:03 PM EDT CTA CHEST ABDOMEN PELVIS W WO CONTRAST STAT 11/08/2024 1:43 PM EDT APTT STAT 11/08/2024 1:39 PM EDT PROTIME-INR STAT 11/08/2024 1:39 PM EDT POCT CREATININE STAT 11/08/2024 1:16 PM EDT POCT VENOUS Routine 11/08/2024 1:14 PM EDT COMPREHENSIVE METABOLIC PANEL W/ REFLEX TO MG FOR LOW K STAT 11/08/2024 12:50 PM EDT CBC WITH AUTO DIFFERENTIAL STAT 11/08/2024 12:50 PM EDT TROPONIN STAT 11/08/2024 12:50 PM EDT POCT GLUCOSE Routine 11/08/2024 12:38 PM EDT EKG 12-LEAD Routine 11/08/2024 12:37 PM EDT documented in this encounter Results * (ABNORMAL) POCT Glucose (11/08/2024 11:06 PM EDT) POC Glucose 130(H) 70 - 99 mg/dl 11/08/2024 11:06 PM EDT [facility] Performed on ACCU-CHEK 11/08/2024 11:06 PM EDT [facility] 11/08/2024 11:0 6 PM EDT 11/08/2024 11:19 PM EDT us Unknown Provider Result POINT OF CARE TEST ORDER JIN Final Result [facility] [address] [place] [id number], [facility] [phone] * POCT Glucose (11/08/2024 11:06 PM EDT) Glucose 130 mg/dL QC OK? yes BLOOD SPECIMEN / Unknown 11/08/2024 11:06 PM EDT us Oc Graham MD POINT OF CARE TEST ORDERABLES Fi nal Result * POCT Glucose (11/08/2024 8:09 PM EDT) Glucose 91 mg/dL QC OK? yes BLOOD SPECIMEN / Unknown 11/08/2024 8:09 PM EDT us Oc Graham MD POINT OF CARE TEST ORDERABLES Fi nal Result * POCT Glucose (11/08/2024 7:55 PM EDT) POC Glucose 91 70 - 99 mg/dl 11/08/2024 7:55 PM EDT [facility] Performed on ACCU-CHEK 11/08/2024 7:55 PM EDT [facility] 11/08/2024 7:55 PM EDT 11/08/2024 8:09 PM EDT us Unknown Provider Result POINT OF CARE TEST ORDER JIN Final Result [facility] [address] [place] [address], [facility] [phone] * Troponin (11/08/2024 6:38 PM EDT) Troponin, High Sensitivity <6 0 - 19 ng/L 11/08/2024 6:48 PM EDT [facility] Comment: High Sensitivity Troponin values cannot be compared with other Troponin methodologies. Blood BLOOD SPECIMEN / Unknown 11/08/2024 6:38 PM EDT 11/08/2024 6:38 PM EDT us Oc Graham MD CHEMISTRY ORDERABLES Final Resul t [facility] [address] [place] [address], [facility] [phone] * POCT Glucose (11/08/2024 4:04 PM EDT) POC Glucose 77 70 - 99 mg/dl 11/08/2024 4:04 PM EDT [facility] Performed on ACCU-CHEK 11/08/2024 4:04 PM EDT [facility] 11/08/2024 4:04 PM EDT 11/08/2024 4:17 PM EDT us Unknown Provider Result POINT OF CARE TEST ORDER JIN Final Result [facility] [address] [address], [facility] [phone] * EKG 12 Lead (11/08/2024 4:01 PM EDT) Ventricular Rate 76 BPM MLOZ MUSE Atrial Rate 76 BPM [facility]LOZ MUSE P-R Interval 152 ms MLOZ MUSE QRS Duration 84 ms MLOZ MUSE Q-T Interval 424 ms MLOZ MUSE QTc Calculation (Bazett) 477 ms MLOZ MUSE P [place] 67 degrees MLOZ MUSE R [place] 31 degrees MLOZ MUSE T [place] 40 degrees MLOZ MUSE Diagnosis Normal sinus rhythm Possible Left atrial enlargement Borderline ECG When compared with ECG of 08-Nov-2024 12:37, premature atrial complexes are no longer present Confirmed by OLEGARIO CRAWFORD ([id number]) on 11/09/2024 8:38:22 AM MLOZ MUSE 11/08/2024 4:01 PM EDT us Oc Graham MD ECG ORDERABLES Final Result Performing Organization Address [facility] Co de Phone Number RUPAL GARCIA * (ABNORMAL) POCT Glucose (11/08/2024 2:03 PM EDT) POC Glucose 69(L) 70 - 99 mg/dl 11/08/2024 2:03 PM EDT [facility] Performed on ACCU-CHEK 11/08/2024 2:03 PM EDT [facility] 11/08/2024 2:03 PM EDT 11/08/2024 2:18 PM EDT us Unknown Provider Result POINT OF CARE TEST ORDER JIN Final Result Performing Organization Address City/[facility]/ZIP Co de Phone Number [facility] [address] [place] [address], [facility] [phone] * CTA CHEST ABDOMEN PELVIS W WO CONTRAST (11/08/2024 1:43 PM EDT) Anatomical Region Laterality Modality Chest, Abdomen, Pelvis, Hip Comp uted Tomography 11/08/2024 2:54 PM EDT Impressions 11/08/2024 3:04 PM EDT 1. No evidence of thoracic or abdominal aortic aneurysm or dissection. 2. No evidence of active hemorrhage within the pelvis. 3. Subcutaneous swelling in the right inguinal region, please correlate with procedural history. 4. Moderate amount of stool in the right and transverse colon which could reflect constipation in the proper clinical setting. 5. Multiple hepatic cysts. 6. Status post cholecystectomy and appendectomy. 7. Status post gastric bypass procedure. Narrative 11/08/2024 3:04 PM EDT EXAMINATION: CTA DISSECTION CHEST ABDOMEN PELVIS WITHOUT AND WITH CONTRAST 11/08/2024 1:43 pm: TECHNIQUE: CTA of the chest, abdomen and pelvis was performed before and after the administration of intravenous contrast as per dissection protocol. Multiplanar reformatted images are provided for review. MIP images are provided for review. Automated exposure control, iterative reconstruction, and/or weight based adjustment of the mA/kV was utilized to reduce the radiation dose to as low as reasonably achievable. 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, Pale appearing, severe chest pain going to left upper shoulder TECHNOLOGIST PROVIDED HISTORY: History of aneurysm, severe chest pain going into left upper back Additional Contrast?->None Reason for exam:->R/o Aortic Dissection Reason for exam:->Patient recently had heart catheterization procedure done that showed scad by cath to the LAD, she did have an aneurysm with clot development to the right groin Reason for exam:->Pale appearing, severe chest pain going to left upper shoulder What reading provider will be dictating this exam?->CRC FINDINGS: CTA CHEST: Thoracic aorta: No evidence of thoracic aortic aneurysm or dissection. No acute abnormality of the aorta. Mediastinum: No evidence of mediastinal lymphadenopathy. The heart and pericardium demonstrate no acute abnormality. Lungs/Pleura: The lungs are without acute process. No focal consolidation or pulmonary edema. No evidence of pleural effusion or pneumothorax. Soft Tissues/Bones: No acute bone or soft tissue abnormality. CTA ABDOMEN: Abdominal aorta/Branches: Lower thoracic and upper abdominal aorta are normal in diameter. No evidence of aneurysm or dissection. Normal origin of the celiac and SMA vessels. Widely patent renal arteries, 2 right renal arteries noted. Organs: Liver is normal in size with multiple well-defined low-density lesions compatible with cysts. There is mild unchanged intrahepatic biliary ductal prominence. There are findings of a prior cholecystectomy. Stomach shows evidence of prior gastric bypass procedure. Pancreas appears normal. Normal adrenal glands. Kidneys demonstrate normal corticomedullary enhancement. No suspicious renal masses. No calculi. GI/Bowel: Moderate amount of stool in the right and transverse colon which could reflect constipation in the proper clinical setting. Normal TI. There are findings of a prior appendectomy. No evidence of pathologic mesenteric adenopathy or mass. Peritoneum/Retroperitoneum: No retroperitoneal mass or adenopathy. No evidence of pneumoperitoneum. Bones/Soft Tissues: No acute abnormality of the visualized osseous structures. CTA PELVIS: Aorta/Iliacs: Lower abdominal aorta is nonaneurysmal. Iliac vessels are normal in diameter and demonstrate no evidence of stenosis or dissection. Patent common femoral and profunda frontal femoris arteries bilaterally. No evidence of active hemorrhage within the pelvis. Other: No free pelvic fluid. Urinary bladder is mildly distended and contains small amount of gas but is otherwise normal. Bones/Soft Tissues: No acute osseous abnormality in the pelvis. There is subcutaneous swelling in the right inguinal region, please correlate with procedural history. Procedure Note Earnest Vicente MD - 11/08/2024 EXAMINATION: CTA DISSECTION CHEST ABDOMEN PELVIS WITHOUT AND WITH CONTRAST 11/08/2024 1:43 pm: TECHNIQUE: CTA of the chest, abdomen and pelvis was performed before and after the administration of intravenous contrast as per dissection protocol. Multiplanar reformatted images are provided for review. MIP images are provided for review. Automated exposure control, iterativereconstruction, and/or weight based adjustment of the mA/kV was utilized to reduce the radiation dose to as low as reasonably achievable. COMPARISON: 12/14 and 11/22/20122022 HISTORY: ORDERING SYSTEM PROVIDED HISTORY: R/o Aortic Dissection, Patient recentlyhad heart catheterization procedure done that showed scad by cath to the LAD,she did have an aneurysm with clot development to the right groin, Pale appearing, severe chest pain going to left upper shoulder TECHNOLOGIST PROVIDED HISTORY: History of aneurysm, severe chest pain going into left upper back Additional Contrast?->None Reason for exam:->R/o Aortic Dissection Reason for exam:->Patient recently had heart catheterization proceduredone that showed scad by cath to the LAD, she did have an aneurysm with clot development to the right groin Reason for exam:->Pale appearing, severe chest pain going to left upper shoulder What reading provider will be dictating this exam?->CRC FINDINGS: CTA CHEST: Thoracic aorta: No evidence of thoracic aortic aneurysm or dissection.No acute abnormality of the aorta. Mediastinum: No evidence of mediastinal lymphadenopathy. The heart and pericardium demonstrate no acute abnormality. Lungs/Pleura: The lungs are without acute process. No focal consolidationor pulmonary edema. No evidence of pleural effusion or pneumothorax. Soft Tissues/Bones: No acute bone or soft tissue abnormality. CTA ABDOMEN: Abdominal aorta/Branches: Lower thoracic and upper abdominal aorta arenormal in diameter. No evidence of aneurysm or dissection. Normal origin ofthe celiac and SMA vessels. Widely patent renal arteries, 2 right renalarteries noted. Organs: Liver is normal in size with multiple well-defined low-density lesions compatible with cysts. There is mild unchanged intrahepaticbiliary ductal prominence. There are findings of a prior cholecystectomy.Stomach shows evidence of prior gastric bypass procedure. Pancreas appearsnormal. Normal adrenal glands. Kidneys demonstrate normal corticomedullary enhancement. No suspicious renal masses. No calculi. GI/Bowel: Moderate amount of stool in the right and transverse colonwhich could reflect constipation in the proper clinical setting. Normal TI.There are findings of a prior appendectomy. No evidence of pathologicmesenteric adenopathy or mass. Peritoneum/Retroperitoneum: No retroperitoneal mass or adenopathy. No evidence of pneumoperitoneum. Bones/Soft Tissues: No acute abnormality of the visualized osseous structures. CTA PELVIS: Aorta/Iliacs: Lower abdominal aorta is nonaneurysmal. Iliac vessels are normal in diameter and demonstrate no evidence of stenosis ordissection. Patent common femoral and profunda frontal femoris arteries bilaterally.No evidence of active hemorrhage within the pelvis. Other: No free pelvic fluid. Urinary bladder is mildly distended and contains small amount of gas but is otherwise normal. Bones/Soft Tissues: No acute osseous abnormality in the pelvis. Thereis subcutaneous swelling in the right inguinal region, please correlatewith procedural history. IMPRESSION: 1. No evidence of thoracic or abdominal aortic aneurysm or dissection. 2. No evidence of active hemorrhage within the pelvis. 3. Subcutaneous swelling in the right inguinal region, please correlatewith procedural history. 4. Moderate amount of stool in the right and transverse colon whichcould reflect constipation in the proper clinical setting. 5. Multiple hepatic cysts. 6. Status post cholecystectomy and appendectomy. 7. Status post gastric bypass procedure. us Oc Graham MD IMG CT ORDERABLES Final Result * Protime-INR (11/08/2024 1:39 PM EDT) Protime 13.9 12.3 - 14.9 sec 11/08/2024 2:00 PM EDT [facility] INR 1.0 11/08/2024 2:00 PM EDT [facility] Blood BLOOD SPECIMEN / Unknown 11/08/2024 1:39 PM EDT 11/08/2024 1:39 PM EDT us Oc Graham MD HEMATOLOGY ORDERABLES Final Resu lt Performing Organization Address City/[facility]/ZIP Co de Phone Number [facility] [address] [facility]. [address] [phone] * APTT (11/08/2024 1:39 PM EDT) aPTT 32.4 24.4 - 36.8 sec 11/08/2024 2:00 PM EDT [facility] Comment: Effective 12/20/2019: Heparin Therapeutic Range: 64.0 98.0 seconds. Blood BLOOD SPECIMEN / Unknown 11/08/2024 1:39 PM EDT 11/08/2024 1:39 PM EDT us Oc Graham MD HEMATOLOGY ORDERABLES Final Resu lt Performing Organization Address City/[facility]/ZIP Co de Phone Number [facility] [address] [facility]. [address] [phone] * POCT Creatinine (11/08/2024 1:16 PM EDT) Pathologist [facility] POC CREATININE WHOLE BLOOD 0.6 BLOOD SPECIMEN / Unknown 11/08/2024 1:16 PM EDT us Oc Graham MD POINT OF CARE TEST ORDERABLES Fi nal Result * POCT Venous (11/08/2024 1:14 PM EDT) [facility] POC Creatinine 0.6 0.6 - 1.2 mg/dL 11/08/2024 1:14 PM EDT [facility] Est, Glom Filt Rate >90 >60 11/08/2024 1:14 PM EDT [facility] Comment: Pediatric calculator link https://www.kidney.org/professionals/kdoqi/gfr_calculatorped Effective Nov 17, 2021 [...] following therapy that affects renal tubular secretion. Sample Type KIRA 11/08/2024 1:14 PM EDT [facility] Performed on SEE BELOW 11/08/2024 1:14 PM EDT [facility] Comment:Performed on POC 11/08/2024 1:14 PM EDT 11/08/2024 1:54 PM EDT us Oc Graham MD POINT OF CARE TEST ORDERABLES Fi nal Result [facility] [address] [place] [id number], [facility] [phone] * Troponin (11/08/2024 12:50 PM EDT) Pathologist [facility] Troponin, High Sensitivity 7 0 - 19 ng/L 11/08/2024 12:59 PM EDT [facility] Comment: High Sensitivity Troponin values cannot be compared with other Troponin methodologies. Blood BLOOD SPECIMEN / Unknown 11/08/2024 12:50 PM EDT 11/08/2024 12:50 PM EDT us Oc Graham MD CHEMISTRY ORDERABLES Final Resul t [facility] [address] [place] [address], [facility] [phone] * (ABNORMAL) Comprehensive Metabolic Panel w/ Reflex to MG (11/08/2024 12:50 PM EDT) Sodium 135 135 - 144 mEq/L 11/08/2024 12:59 PM EDT [facility] Potassium reflex Magnesium 3.6 3.4 - 4.9 mEq/L 11/08/2024 12:59 PM EDT [facility] Chloride 101 95 - 107 mEq/L 11/08/2024 12:59 PM EDT [facility] CO2 25 20 - 31 mEq/L 11/08/2024 12:59 PM EDT [facility] Anion Gap 9 9 - 15 mEq/L 11/08/2024 12:59 PM T [facility] Glucose 84 70 - 99 mg/dL 11/08/2024 12:59 PM T [facility] BUN 14 6 - 20 mg/dL 11/08/2024 12:59 PM EDT [facility] Creatinine 0.56 0.50 - 0.90 mg/dL 11/08/2024 12:59 PM EDT [facility] Est, Glom Filt Rate >90.0 >60 11/08/2024 12:59 PM T [facility] Comment: Pediatric calculator link https://www.kidney.org/professionals/kdoqi/gfr_calculatorped Effective Nov 17, 2021 [...] following therapy that affects renal tubular secretion. Calcium 8.3(L) 8.5 - 9.9 mg/dL 11/08/2024 12:59 PM EDT [facility] Total Protein 6.2(L) 6.3 - 8.0 g/dL 11/08/2024 12:59 PM EDT [facility] Albumin 3.8 3.5 - 4.6 g/dL 11/08/2024 12:59 PM EDT [facility] Total Bilirubin 0.4 0.2 - 0.7 mg/dL 11/08/2024 12:59 PM EDT [facility] Alkaline Phosphatase 58 40 - 130 U/L 11/08/2024 12:59 PM EDT [facility] ALT 12 0 - 33 U/L 11/08/2024 12:59 PM EDT [facility] AST 25 0 - 35 U/L 11/08/2024 12:59 PM EDT [facility] Globulin 2.4 2.3 - 3.5 g/dL 11/08/2024 12:59 PM EDT [facility] Blood BLOOD SPECIMEN / Unknown 11/08/2024 12:50 PM EDT 11/08/2024 12:50 PM EDT us Oc Graham MD CHEMISTRY ORDERABLES Final Resul t [facility] [address] [place] [id number], [facility] [phone] * (ABNORMAL) CBC with Auto Differential (11/08/2024 12:50 PM EDT) WBC 4.9 4.8 - 10.8 K/uL 11/08/2024 1:00 PM EDT [facility] RBC 3.04(L) 4.20 - 5.40 M/uL 11/08/2024 1:00 PM EDT [facility] Hemoglobin 9.1(L) 12.0 - 16.0 g/dL 11/08/2024 1:00 [facility] Hematocrit 27.5(L) 37.0 - 47.0 % 11/08/2024 1:00 PM [facility] MCV 90.5 79.4 - 94.8 fL 11/08/2024 1:00 PM [facility] MCH 29.9 27.0 - 31.3 pg 11/08/2024 1:00 PM [facility] MCHC 33.1 33.0 - 37.0 % 11/08/2024 1:00 PM [facility] RDW 14.1 11.5 - 14.5 % 11/08/2024 1:00 PM [facility] Platelets 205 130 - 400 K/uL 11/08/2024 1:00 PM [facility] Neutrophils % 56.5 % 11/08/2024 1:00 PM [facility] Lymphocytes % 29.4 % 11/08/2024 1:00 PM [facility] Monocytes % 10.5 % 11/08/2024 1:00 PM [facility] Eosinophils % 2.8 % 11/08/2024 1:00 PM [facility] Basophils % 0.6 % 11/08/2024 1:00 PM [facility] Neutrophils Absolute 2.8 1.4 - 6.5 K/uL 11/08/2024 1:00 PM [facility] Lymphocytes Absolute 1.5 1.0 - 4.8 K/uL 11/08/2024 1:00 PM [facility] Monocytes Absolute 0.5 0.2 - 0.8 K/uL 11/08/2024 1:00 PM [facility] Eosinophils Absolute 0.1 0.0 - 0.7 K/uL 11/08/2024 1:00 PM EDT [facility] Basophils Absolute 0.0 0.0 - 0.2 K/uL 11/08/2024 1:00 PM EDT [facility] Blood BLOOD SPECIMEN / Unknown 11/08/2024 12:50 PM EDT 11/08/2024 12:50 PM EDT us Oc Graham MD HEMATOLOGY ORDERABLES Final Resu lt [facility] [address] [place] [address], [facility] [phone] * POCT Glucose (11/08/2024 12:38 PM EDT) Pathologist [facility] POC Glucose 82 70 - 99 mg/dl 11/08/2024 12:38 PM EDT [facility] Performed on ACCU-CHEK 11/08/2024 12:38 PM EDT [facility] 11/08/2024 12:3 8 PM EDT 11/08/2024 12:49 PM EDT us Ioana Spears DO POINT OF CARE TEST ORDERABLE S Final Result Performing Organization Address [facility] Co de Phone Number [facility] [address] [place] [address], [facility] [phone] * EKG 12 Lead (11/08/2024 12:37 PM EDT) Ventricular Rate 76 BPM MLOZ MUSE Atrial Rate 76 BPM MLOZ MUSE P-R Interval 162 ms MLOZ MUSE QRS Duration 86 ms MLOZ MUSE Q-T Interval 438 ms MLOZ MUSE QTc Calculation (Bazett) 492 ms MLOZ MUSE P [place] 58 degrees MLOZ MUSE R [place] 33 degrees MLOZ MUSE T [place] 38 degrees MLOZ MUSE Diagnosis Sinus rhythm with premature atrial complexes Possible Left atrial enlargement Prolonged QT Abnormal ECG When compared with ECG of 27-Nov-2022 09:38, premature atrial complexes are now present Confirmed by OLEGARIO CRAWFORD ([id number]) on 11/09/2024 8:38:07 AM RUPAL GARCIA 11/08/2024 12:3 7 PM EDT Oc Graham MD ECG ORDERABLES Final Result RUPAL GARCIA documented in this encounter Visit Diagnoses Diagnosis Chest pain, unspecified type- Primary documented in this encounter Administered Medications Inactive Administered Medications - up to 3 most recent administrations Medication Order MAR Action Action Date Dose Rate Site dextrose 5 % and 0.45 % sodium chloride infusion IntraVENous, at 50 mL/hr, CONTINUOUS, Starting on Wed11/08/24 at 1407 Restarted 11/08/2024 6:30 PM EDT 50 mL/hr New Bag 11/08/2024 2:16 PM EDT 50 mL/hr diphenhydrAMINE (BENADRYL) injection 25 mg 25 mg, IntraVENous, ONCE, 1 dose, On Wed11/08/24 at 1257, IV Push at rate not to exceed 25 mg/min. Given 11/08/2024 1:06 PM EDT 25 mg diphenhydrAMINE (BENADRYL) injection 25 mg 25 mg, IntraVENous, ONCE, 1 dose, On Wed11/08/24 at 1728, IV Push at rate not to exceed 25 mg/min. Given 11/08/2024 6:26 PM EDT 25 mg fentaNYL (SUBLIMAZE) injection 25 mcg 25 mcg, IntraVENous, ONCE, 1 dose, On Wed11/08/24 at 1257, If oral and IV narcotics ordered, use oral first and only use IV if oral is ineffective or cannot take oral. Do Not give oral and IV within 1 hour of each other unless specifically ordered. Given 11/08/2024 1:05 PM EDT 25 mcg fentaNYL (SUBLIMAZE) injection 25 mcg 25 mcg, IntraVENous, ONCE, 1 dose, On Wed11/08/24 at 1330, If oral and IV narcotics ordered, use oral first and only use IV if oral is ineffective or cannot take oral. Do Not give oral and IV within 1 hour of each other unless specifically ordered. Given 11/08/2024 1:34 PM EDT 25 mcg fentaNYL (SUBLIMAZE) injection 50 mcg 50 mcg, IntraVENous, ONCE, 1 dose, On Wed11/08/24 at 1448, If oral and IV narcotics ordered, use oral first and only use IV if oral is ineffective or cannot take oral. Do Not give oral and IV within 1 hour of each other unless specifically ordered. Given 11/08/2024 3:04 PM EDT 50 mcg fentaNYL (SUBLIMAZE) injection 50 mcg 50 mcg, IntraVENous, ONCE, 1 dose, On Wed11/08/24 at 1622, If oral and IV narcotics ordered, use oral first and only use IV if oral is ineffective or cannot take oral. Do Not give oral and IV within 1 hour of each other unless specifically ordered. Given 11/08/2024 4:47 PM EDT 50 mcg iopamidol (ISOVUE-370) 76 % injection 100 mL 100 mL, IntraVENous, IMG ONCE PRN, 1 dose, Starting on Wed11/08/24 at 1343, Until Wed11/08/24 at 1353, Other Given 11/08/2024 1:53 PM EDT 170 mLs ketorolac (TORADOL) injection 15 mg 15 mg, IntraVENous, ONCE, 1 dose, On Wed11/08/24 at 1749, Do not administer for more than 5 days. Given 11/08/2024 6:26 PM EDT 15 mg PN-Adult 3 IN 1 Central Line (Custom) IntraVENous, at 143.8 mL/hr, Administer over 16 Hours, CONTINUOUS TPN, Starting on Wed11/08/24 at 2100, For 24 hours, Use 1.2 micro filter. Do not use administration sets and lines that contain DEHP. USE CAUTION IF PATIENT USING PROPOFOL. 158.5 ml/hr x 13 hours 79.8 ml/hr x last 3 hours New Bag 11/08/2024 8:54 PM EDT 143.8 mL/hr prochlorperazine (COMPAZINE) 5 mg in sodium chloride 0.9 % 50 mL IVPB 5 mg, IntraVENous, at 200 mL/hr, Administer over 15 Minutes, ONCE, On Wed11/08/24 at 1728, For 1 dose Given 11/08/2024 6:31 PM EDT 5 mg 200 mL/hr prochlorperazine (COMPAZINE) injection 5 mg 5 mg, IntraVENous, ONCE, 1 dose, On Wed11/08/24 at 1257, ADMINISTER OVER SLOW BOLUS IN 250CC OF NORMAL SALINE. Given 11/08/2024 1:04 PM EDT 5 mg sodium chloride 0.9 % bolus 500 mL 500 mL (5.86 mL/kg), IntraVENous, at 491.8 mL/hr, Administer over 61 Minutes, ONCE, On Wed11/08/24 at 1448, For 1 dose New Bag 11/08/2024 3:07 PM EDT 500 mLs 491.8 mL/hr documented in this encounter Active and Recently Administered Medications Times are shown in EDT. Scheduled Medication Order 11/07/2024 11/08/2024 11/09/2024 diphenhydrAMINE (BENADRYL) injection 25 mg (COMPLETED) 25 mg, IntraVENous, ONCE, 1 dose, On Wed11/08/24 at 1257, IV Push at rate not to exceed 25 mg/min. 1306 (Given - Provider: Madhavi Whipple RN) diphenhydrAMINE (BENADRYL) injection 25 mg (COMPLETED) 25 mg, IntraVENous, ONCE, 1 dose, On Wed11/08/24 at 1728, IV Push at rate not to exceed 25 mg/min. 1826 (Given - Provider: Facundo Garcia RN) fentaNYL (SUBLIMAZE) injection 25 mcg (COMPLETED) 25 mcg, IntraVENous, ONCE, 1 dose, On Wed11/08/24 at 1257, If oral and IV narcotics ordered, use oral first and only use IV if oral is ineffective or cannot take oral. Do Not give oral and IV within 1 hour of each other unless specifically ordered. 1305 (Given - Provider: Madhavi Whipple RN) fentaNYL (SUBLIMAZE) injection 25 mcg (COMPLETED) 25 mcg, IntraVENous, ONCE, 1 dose, On Wed11/08/24 at 1330, If oral and IV narcotics ordered, use oral first and only use IV if oral is ineffective or cannot take oral. Do Not give oral and IV within 1 hour of each other unless specifically ordered. 1334 (Given - Provider: Madhavi Whipple RN) fentaNYL (SUBLIMAZE) injection 50 mcg (COMPLETED) 50 mcg, IntraVENous, ONCE, 1 dose, On Wed11/08/24 at 1448, If oral and IV narcotics ordered, use oral first and only use IV if oral is ineffective or cannot take oral. Do Not give oral and IV within 1 hour of each other unless specifically ordered. 1504 (Given - Provider: Facundo Garcia RN) fentaNYL (SUBLIMAZE) injection 50 mcg (COMPLETED) 50 mcg, IntraVENous, ONCE, 1 dose, On Wed11/08/24 at 1622, If oral and IV narcotics ordered, use oral first and only use IV if oral is ineffective or cannot take oral. Do Not give oral and IV within 1 hour of each other unless specifically ordered. 1647 (Given - Provider: Facundo Garcia RN) ketorolac (TORADOL) injection 15 mg (COMPLETED) 15 mg, IntraVENous, ONCE, 1 dose, On Wed11/08/24 at 1749, Do not administer for more than 5 days. 1826 (Given - Provider: Facundo Garcia RN) prochlorperazine (COMPAZINE) 5 mg in sodium chloride 0.9 % 50 mL IVPB (COMPLETED) 5 mg, IntraVENous, at 200 mL/hr, Administer over 15 Minutes, ONCE, On Wed11/08/24 at 1728, For 1 dose 1831 (Given - Provider: Facundo Garcia RN) prochlorperazine (COMPAZINE) injection 5 mg (COMPLETED) 5 mg, IntraVENous, ONCE, 1 dose, On Wed11/08/24 at 1257, ADMINISTER OVER SLOW BOLUS IN 250CC OF NORMAL SALINE. 1304 (Given - Provider: Madhavi Whipple RN) sodium chloride 0.9 % bolus 500 mL (COMPLETED) 500 mL (5.86 mL/kg), IntraVENous, at 491.8 mL/hr, Administer over 61 Minutes, ONCE, On Wed11/08/24 at 1448, For 1 dose 1507 (New Bag - Provider: Alis Garcia RN)1610 (Stopped - Provider: Alis Garcia RN) verapamil (CALAN) tablet 40 mg 40 mg, Oral, NOW, 1 dose, On Wed11/08/24 at 2000 2103 (Not Given - Provider: Alis Garcia RN - Reason: Other - Comment: BP) Continuous Medication Order 11/07/2024 11/08/2024 11/09/2024 dextrose 5 % and 0.45 % sodium chloride infusion (CANCELED) IntraVENous, at 50 mL/hr, CONTINUOUS, Starting on Wed11/08/24 at 1407 1416 (New Bag - Provider: Alis Garcia RN)1823 (Paused - Provider: Amanda Black, RN)183 (Restarted - Provider: Amanda Black, RN)194 (Stopped - Provider: Alis Garcia RN) PN-Adult 3 IN 1 Central Line (Custom) IntraVENous, at 143.8 mL/hr, Administer over 16 Hours, CONTINUOUS TPN, Starting on Wed11/08/24 at 2100, For 24 hours, Use 1.2 micro filter. Do not use administration sets and lines that contain DEHP. USE CAUTION IF PATIENT USING PROPOFOL. 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
--- OUTSIDE RECORDS SUMMARY | 2024-11-09 10:47 | XMS_ITS | Encounter Summary ---
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 Role Phone Thomas Calix MD Primary Care Provider [phone] Reason for Referral * (Routine) - Pending Review Specialty Diagnoses / Procedures Referred By Contac t Referred To Contact Procedures ECG 12 lead Marky Tavares MD [address] [place] [address] Phone: tel: fax: Referral ID Status Reason Start Date Expiration Date V isits Requested Visits Authorized [id number] Pending Review 11/12/2024 11/12/2025 1 1 * (Emergency) - Pending Review Specialty Diagnoses / Procedures Referred By Contac t Referred To Contact Procedures ECG 12 lead Marky Tavares MD [address] [place] [address] Phone: tel: fax: Referral ID Status Reason Start Date Expiration Date V isits Requested Visits Authorized [id number] Pending Review 11/11/2024 11/11/2025 1 1 * (Emergency) - Pending Review Specialty Diagnoses / Procedures Referred By Contac t Referred To Contact Procedures ECG 12 lead Marky Tavares MD [address] [place] [address] Phone: tel: fax: Referral ID Status Reason Start Date Expiration Date V isits Requested Visits Authorized [id number] Pending Review 11/10/2024 11/10/2025 1 1 * (Routine) - Pending Review Specialty Diagnoses / Procedures Referred By Contac t Referred To Contact Procedures ECG 12 lead Vicky Cole CNP [address] [place] [address] Phone: tel: fax: Referral ID Status Reason Start Date Expiration Date V isits Requested Visits Authorized [id number] Pending Review 11/10/2024 11/10/2025 1 1 * (Routine) - Pending Review Specialty Diagnoses / Procedures Referred By Contac t Referred To Contact Procedures ECG 12 lead Wali Collins MD [address] [place] [phone] Phone: tel: fax: Referral ID Status Reason Start Date Expiration Date V isits Requested Visits Authorized [id number] Pending Review 11/09/2024 11/09/2025 1 1 Reason for Visit * Auth/Cert (Routine) Specialty Diagnoses / Procedures Referred By Contac t Referred To Contact Diagnoses Chest pain chest pain Procedures NO CODED SERVICES Shanna Lamas DO [address] [place] [address] Phone: tel: fax: [facility] [address] [place] [address] Phone: tel: fax: Referral ID Status Reason Start Date Expiration Date Visits Re quested Visits Authorized [id number] 1 1 Encounter Details Date Type Department Care Team (Late st Contact Info) Description 11/09/2024 10:47 AM EDT - 11/13/2024 2:34 PM EDT Hospital Encounter [facility] [address] [place] [id number] Urbano Santos MD [address] [place] [address] Marky Tavares MD [address] [facility] [place] [address] Shanna Lamas DO [address] [place] [address] Chest pain (Primary Dx); Chronic narcotic use Discharge Disposition: Home-Health Care [facility] (06) Social History Tobacco Use Types Packs/Day Years Used Date Smoking Tobacco: Never Smokeless Tobacco: Never Alcohol Use Standard Drinks/Week Comments Not Currently 0 (1 standard drink = 0.6 oz pur e alcohol) [facility] Utilities Answer Date Recorded In the past 12 months has th [employer] gas, oil, or water [employer] threatened to shut off services in your home? No 11/09/2024 Humiliation, Afraid, Rape, and Kick questionnair e Answer Date Recorded Within the last year, have y ou been afraid of your partner or ex-partner? No 11/09/2024 Emotionally Abused Not on file 11/09/2024 Physically Abused Not on file 11/09/2024 Sexually Abused Not on file 11/09/2024 Overall Financial Resource Strain (CARDIA) Answe r Date Recorded How hard is it for you to pa y for the very basics like food, housing, medical care, and heating? Not hard at all 11/09/2024 Transportation Answer Date Recorded In the past 12 months, has l ack of transportation kept you from medical appointments or from getting medications? No 11/09/2024 Lack of Transportation (Non-Medical) Not on file 11/09/2024 Housing Stability Vital Sign Answer Eugenio e Recorded In the last 12 months, was t here a time when you were not able to pay the mortgage or rent on time? No 11/09/2024 In the past 12 months, how m any times have you moved where you were living? 0 11/09/2024 At any time in the past 12 m [facility], were you homeless or living in a usp (including now)? No 11/09/2024 Hunger Vital Sign Answer Date Recorded Within the past 12 months, y ou worried that your food would run out before you got the money to buy more. Never true 11/10/19 Ran Out of Food in the Last Year Not on file 11/09/2024 Comments Unknown Sex and Gender Information Value Date Recorded Sex Assigned at Female 08/17/2024 3:45 PM EDT Legal Sex Female 12:07 AM EDT Gender Identity Female 08/17/2024 3:45 PM EDT Sexual Orientation Heterosexual or Straight 04/2024 3:45 PM EDT documented as of this encounter Last Filed Vital Signs Vital Sign Reading Time Taken Comments Blood Pressure 124/72 11/13/2024 2:16 PM EDT Pulse 70 11/13/2024 11:10 AM EDT Temperature 36.7 C (98 F) 11/13/2024 11:10 AM EDT Respiratory Rate 12 11/13/2024 11:10 AM EDT Oxygen Saturation 100% 11/13/2024 11:10 AM EDT Inhaled Oxygen Concentration - - Weight 84 kg (185 lb 3.2 oz) 11/13/2024 5:27 AM EDT Height 167.6 cm (5' 5.98 ) 11/09/2024 11:00 AM E DT Body Mass Index 29.91 11/09/2024 11:00 AM EDT documented in this encounter Functional Status * Question Answer Date of Assessment Author BP 124/72 11/13/2024 2:16 PM EDT Patricia Butt RN * Qureshi Fall Risk Question Answer Date of Assessment Author History of Falling, Immediat e or Within 3 Months 0 11/13/2024 7:14 AM EDT Patricia Butt RN Secondary Diagnosis 15 11/13/2024 7:14 AM ED T Patricia Butt RN Ambulatory Aid 0 11/13/2024 7:14 AM EDT Car rPatricia RN Intravenous Therapy/Heparin Lock 20 11/14/19 7:14 AM EDT Patricia Butt RN Gait/Transferring 0 11/13/2024 7:14 AM EDT Patricia Butt RN Mental Status 0 11/13/2024 7:14 AM EDT Patricia Butt RN Qureshi Fall Risk Score 35 11/13/2024 7:14 AM EDT Patricia Butt RN * Cyrus Scale Question Answer Date of Assessment Author Cyrus No Risk Interventions Continue to assess patient according to level of care 11/12/2024 8:30 PM EDT Diamond Cardoza RN Sensory Perceptions 4 11/13/2024 7:14 AM ED T Patricia Butt RN Moisture 4 11/13/2024 7:14 AM EDT Patricia Butt RN Activity 3 11/13/2024 7:14 AM EDT Patricia Butt RN Mobility 4 11/13/2024 7:14 AM EDT Patricia Butt RN Nutrition 3 11/13/2024 7:14 AM EDT Patricia Butt RN Friction and Shear 3 11/13/2024 7:14 AM EDT Patricia Butt RN Cyrus Scale Score 21 11/13/2024 7:14 AM EDT Patricia Butt RN * Patient's Stated Pain Goal Answer Date of Assessment Author No pain 11/13/2024 2:16 PM EDT Fatuma Butt RN * Hampton Fall Risk Interventions Question Answer Date of Assessment Author Hampton Fall Risk Interventions Complete 025 7:14 AM EDT Patricia Butt RN * Pain Assessment Timer Question Answer Date of Assessment Author Restart Pain Assessment Timer Yes 11/13/2024 2:16 PM EDT Patricia Butt RN * Sepsis Model Scores Question Answer Date of Assessment Author Early Detection of Sepsis Score 3.15 2:31 PM EDT Delano Guzman * Pain Assessment Question Answer Date of Assessment Author Pain Location Chest 11/10/2024 8:12 AM EDT Siena Manrique RN Pain Interventions Emotional support;Environmental changes 11/13/2024 7:14 AM EDT Patricia Butt RN Pain Radiating Towards back 8:12 AM EDT Siena Manrique RN Pain Descriptors Squeezing;Sharp 11/10/2024 8:12 AM EDT Siena Manrique RN Pain Onset Ongoing 11/10/2024 8:12 AM EDT Siena Manrique RN Pain Frequency Intermittent 11/10/2024 8:12 AM EDT Siena Manrique RN Response to Interventions Improved 11/13/2024 11:39 AM EDT Patricia Butt RN Pain Type Chronic pain 11/13/2024 7:14 AM EDT Patricia Butt RN Clinical Progression Not changed 11/13/2024 7:14 AM EDT Patricia Butt RN Patient Behaviors None 11/13/2024 7:1 4 AM EDT Patricia Butt RN Pain Assessment 0-10 11/13/2024 7:14 AM EDT Patricia Butt RN * Pain Score Answer Date of Assessment Author 8 11/13/2024 2:16 PM EDT Fatuma Butt RN * Question Answer Date of Assessment Author Pulse 70 11/13/2024 11:10 AM EDT Patricia Butt RN Heart Rate Source Monitor 11/13/2024 11:10 AM EDT Patricia Butt RN Patient Position Lying 11/13/2024 11:10 AM EDT Patricia Butt RN * Deterioration Index Score Question Answer Date of Assessment Author Deterioration Index Score 32.62 11/13/2024 2:31 PM EDT Chronicles, Batchq * Question Answer Date of Assessment Author BP 124/72 11/13/2024 2:16 PM EDT Patricia Butt RN * Head, Ears, Eyes, Nose, and Throat (HEENT) Question Answer Date of Assessment Author Head, Ears, Eyes, Nose, and Throat (WDL) X 11/13/2024 7:14 AM EDT Patricia Butt R N R Eye Mildly impaired vision;Corrective lenses 11/13/2024 7:14 AM EDT Patricia Butt RN L Eye Mildly impaired vision;Corrective lenses 11/13/2024 7:14 AM EDT Patricia Butt RN R Ear Intact 11/13/2024 7:14 AM EDT Patricia Butt RN L Ear Intact 11/13/2024 7:14 AM EDT Patricia Butt RN Nose Intact 11/13/2024 7:14 AM EDT Patricia Butt RN Throat Intact 11/13/2024 7:14 AM EDT Patricia Butt RN Tongue [place];Moist 11/13/2024 7:14 AM EDT Patricia Butt RN Mucous Membrane(s) Moist;[place];Intact 11/13/2024 7:14 A M EDT Patricia Butt RN Teeth Intact 11/13/2024 7:14 AM EDT Patricia Butt RN Head and Face Symmetrical 11/13/2024 7:14 AM EDT Patricia Butt RN Neck Symmetrical 11/13/2024 7:14 AM JUNT Patricia Butt RN Lips Dry;Moist;[place] 11/13/2024 7:14 AM EDT Car rPatricia RN * Question Answer Date of Assessment Author MAP (mmHg) 82 11/13/2024 11:10 AM EDT Patricia Butt RN * Short Portable Mental Status Question Answer Date of Assessment Author What are the date, month, year? 0 7:14 AM EDT Patricia Butt RN What is the day of the week? 0 11/13/2024 7 :14 AM Patricia Malone RN What is the name of this place? 0 7:14 AM JUNT Patricia Butt RN What is your phone number? 0 11/13/2024 7:1 4 AM JUNT Patricia Butt RN How old are you? 0 11/13/2024 7:14 AM EDT Patricia Beckham RN When were you born? 0 11/13/2024 7:14 AM ED T Patricia Butt RN Who is the current president? 0 11/13/2024 7:14 AM Patricia Malone RN Who was the president before him? 0 025 7:14 AM Patricia Malone RN What was your mother's maiden name? 0 11/13 7:14 AM Patricia Malone RN Can you count backward from 20 by 3s? 1 7:14 AM Patricia Malone RN Short Portable Mental Score 1 11/13/2024 7: 14 AM Patricia Maolne RN * Fall Risk Level Question Answer Date of Assessment Author Mobility zone Low (Green Zone) 11/13/2024 7:14 AM Patricia Malone RN Qureshi fall risk zone Low (Green Zone) 11/13/2024 7:14 AM Patricia Malone RN Mental status questionaire zone Low (Green Zone) 11/13/2024 7:14 AM Patricia Malone RN * Skin Assessment Sign off Question Answer Date of Assessment Author Dual Sign-off - Admission/Transfer n/a 11/11/2024 7:38 AM EDT Angeline Keyes RN Dual Sign-off - Shift n/a 11/11/2024 7:38 AM EDT Stacie Keyes RN Any new wounds identified on admission/transfer? No 11/11/2024 7:38 AM EDT Carito Keyes RN Provider notified of new wound Other (Comment) 11/09/2024 2:10 PM EDT Kimberlee Allen R N * 6 Clicks (Mobility) Question Answer Date of Assessment Author Help from another person cli mbing 3-5 steps with a railing 3 11/12/2024 8:30 PM EDT Diamond Cardoza RN Help from another person tur jose from your back to your side while in a flat bed without using bedrails 4 11/12/2024 8:30 PM EDT Hallie Cardoza sa, RN Help from another person mov ing from lying on your back to sitting on the side of a flat bed without using bedrails 4 11/12/2024 8:30 PM EDT Diamond Cardoza RN Help from another person mov ing to and from a bed to a chair (including a wheelchair) 4 11/12/2024 8:30 PM EDT Diamond Cardoza RN Help from another person sta nding up from a chair using your arms (e.g. wheelchair or bedside chair) 4 11/12/2024 8:30 PM EDT Palmer Cardoza RN Help from another person to walk in hospital room 3 11/12/2024 8:30 PM EDT Diamond Cardoza RN Mobility 6 Clicks T-Score 22 11/12/2024 8:30 PM EDT Diamond Cardoza RN * Question Answer Date of Assessment Author SpO2 100 11/13/2024 11:10 AM EDT Patricia Butt RN * Question Answer Date of Assessment Author Pulse rate from Plethysmogram (bpm) 69 11/13 11:10 AM EDT Patricia Butt RN * Question Answer Date of Assessment Author Level of Consciousness Alert 7:14 AM EDT Patricia Butt RN Orientation Level Oriented X4 11/13/2024 7:1 4 AM EDT Patricia Butt RN Cognition Follows commands 11/13/2024 7:14 AM EDT Patricia Butt RN Speech Clear 11/13/2024 7:14 AM EDT Patricia Butt RN L Pupil Reaction Brisk 11/13/2024 7:14 AM EDT Patricia Butt RN L Pupil Size (mm) 3 11/13/2024 7:1 4 AM EDT Patricia Butt RN R Pupil Reaction Brisk 11/13/2024 7:14 AM EDT Patricia Butt RN R Pupil Size (mm) 3 11/13/2024 7:1 4 AM EDT Patricia Butt RN Swallow Able to swallow gina ds and liquids without difficulty 11/13/2024 7:14 AM EDPatricia Miranda RN R Hand Grasp Strong 11/13/2024 7:14 AM EDPatricia Miranda RN L Hand Grasp Strong 11/13/2024 7:14 AM EDT Patricia Butt RN R Foot Dorsiflexion Moderate 11/13/2024 7 :14 AM EDT Patricia Butt RN L Foot Dorsiflexion Moderate 11/13/2024 7 :14 AM EDT Patricia Butt RN R Foot Plantar Flexion Moderate 7:14 AM EDPatricia Miranda RN L Foot Plantar Flexion Moderate 7:14 AM EDT Patricia Butt RN R Pupil Shape Round 11/13/2024 7:14 AM EDT Patricia Butt RN L Pupil Shape Round 11/13/2024 7:14 AM EDT Patricia Butt RN Neuro Symptoms None 11/13/2024 7:14 AM EDT Patricia Butt RN Pupil Assessment Yes 11/13/2024 7:14 AM EDT Patricia Butt RN Hand Grasp/Motor Function/Sensation Assessment Grasp;Dorsiflexion;Plan tar flexion 11/13/2024 7:14 AM EDT Patricia Butt RN Facial Symmetry Symmetrical 11/13/2024 7:14 AM EDT Patricia Butt RN * Question Answer Date of Assessment Author Bilateral Breath Sounds Clear;Diminished 11/13/2024 7: 14 AM EDT Patricia Butt RN Respiratory Pattern Normal 11/13/2024 7:14 AM ED T Patricia Butt RN Chest Assessment Chest expansion symmetrical 11/13/2024 7:14 AM EDT Patricia Butt RN Cough None 11/13/2024 7:14 AM EDT Patricia Butt RN Respiratory Effort Unlabored 11/13/2024 7:14 AM EDT Patricia Butt RN Respiratory Depth/Rhythm Shallow 11/13/2024 7:14 AM EDT Patricia Butt RN * Question Answer Date of Assessment Author Cardiac Regularity Regular 11/13/2024 7:14 AM EDT Patricia Butt RN General Manager In Training Status On 11/13/2024 7:14 AM EDT Patricia Butt RN Telemetry Box Number [id number] 11/13/2024 7:14 AM E DT Patricia Butt RN Jugular Venous Distention (JVD) No 11/13/2024 7:14 AM EDT Patricia Butt RN Cardiac Symptoms Other (Comment) 11/13/2024 7:14 AM ED T Patricia Butt RN Heart Sounds S1, S2 11/13/2024 7:14 AM EDT Patricia Butt RN * Gastrointestinal Question Answer Date of Assessment Author Last [place] Date [id number] 11/11/2024 8:00 PM EDT Diamond Cardoza RN Passing Flatus Yes 11/13/2024 7:14 AM EDT Patricia Butt RN Abdominal Tenderness Guarding;Soft 11/13/2024 7:14 AM EDT Patricia Butt RN Bowel Sounds (All Quadrants) Hypoactive 11/13/2024 7:14 AM EDT Patricia Butt RN Gastrointestinal (WDL) X 7:14 AM EDT Patricia Butt RN Abdomen Inspection Soft;Rounded;Nondist e nded 11/13/2024 7:14 AM EDT Patricia Butt RN Gastrointestinal Symptoms Nausea 2024 7:14 AM EDT Patricia Butt RN Nausea Precipitating Factors Movement 11/13/2024 7:14 AM EDT Patricia Butt RN Constipation Precipitating Factors Disease related 11/13/2024 7:14 AM EDT Patricia Butt RN Bowel Incontinence No 11/12/2024 8: 30 PM EDT Diamond Cardoza RN Bowel Sounds All quadrants 11/13/2024 7:14 AM EDT Patricia Butt RN * Peripheral Vascular Question Answer Date of Assessment Author Peripheral Vascular ([facility]) [facility] 11/13/2024 7:14 AM EDT Patricia Butt RN * Musculoskeletal Question Answer Date of Assessment Author Musculoskeletal ([facility]) [facility] 11/13/2024 7:14 AM EDT Patricia Butt RN * Psychosocial Question Answer Date of Assessment Author Psychosocial ([facility]) [facility] 11/13/2024 7:14 AM EDT Patricia Butt RN * Qureshi Fall Risk Question Answer Date of Assessment Author History of Falling, Immediat e or Within 3 Months 0 11/13/2024 7:14 AM EDT Patricia Butt RN Secondary Diagnosis 15 11/13/2024 7:14 AM ED T Patricia Butt RN Ambulatory Aid 0 11/13/2024 7:14 AM EDT Car rPatricia RN Intravenous Therapy/Heparin Lock 20 11/14/19 7:14 AM EDT Patricia Butt RN Gait/Transferring 0 11/13/2024 7:14 AM EDT Patricia Butt RN Mental Status 0 11/13/2024 7:14 AM EDT Patricia Butt RN Qureshi Fall Risk Score 35 11/13/2024 7:14 AM EDT Patricia Butt RN * Cyrus Scale Question Answer Date of Assessment Author Cyrus No Risk Interventions Continue to assess patient according to level of care 11/12/2024 8:30 PM EDT Diamond Cardoza RN Sensory Perceptions 4 11/13/2024 7:14 AM ED T Patricia Butt RN Moisture 4 11/13/2024 7:14 AM EDT Patricia Butt RN Activity 3 11/13/2024 7:14 AM EDT Patricia Butt RN Mobility 4 11/13/2024 7:14 AM EDT Patricia Butt RN Nutrition 3 11/13/2024 7:14 AM EDT Patricia Butt RN Friction and Shear 3 11/13/2024 7:14 AM EDT Patricia Butt RN Cyrus Scale Score 21 11/13/2024 7:14 AM EDT Patricia Butt RN * Cardiac Question Answer Date of Assessment Author Cardiac ([facility]) [facility] 11/09/2024 2:01 PM EDT Kimberlee Lara RN Telemetry Yes 11/09/2024 11:00 AM EDT Kimberlee Lara RN * Respiratory Question Answer Date of Assessment Author Respiratory ([facility]) [facility] 11/09/2024 2:01 PM EDT Kimberlee Allen RN * Charting Type Question Answer Date of Assessment Author Charting Type Shift assessment 11/13/2024 7:14 AM EDT Patricia Butt RN * Patient's Stated Pain Goal Answer Date of Assessment Author No pain 11/13/2024 2:16 PM EDT Fatuma Butt RN * Cultural Requests During Hospitalization Answer Date of Assessment Author none 11/12/2024 8:30 PM EDT Fausto Cardoza RN * Spiritual Requests During Hospitalization Answer Date of Assessment Author christianity 11/12/2024 8:30 PM EDT Fausto Cardoza RN * Genitourinary Question Answer Date of Assessment Author Urinary Frequency Adequate 11/13/2024 7:14 AM EDT Patricia Butt RN Female Genitalia Intact 11/13/2024 7:14 AM EDT C Patricia tom RN Genitourinary ([facility]) [facility] 11/13/2024 7:14 AM ED T Patricia Butt RN Urinary Incontinence No 11/13/2024 7:14 AM E DT Patricia Butt RN Suprapubic Tenderness No 11/13/2024 7:14 AM EDT Patricia Butt RN * Neurological Question Answer Date of Assessment Author Neuro ([facility]) [facility] 11/09/2024 2:01 PM EDT Kimberlee Og RN * Patient Monitoring Question Answer Date of Assessment Author Frequency of Checks Twice per hour, standard 7:14 AM EDT Patricia Butt RN * Safe Environment Question Answer Date of Assessment Author Arm Bands On ID;Allergies 11/13/2024 7:14 AM EDT Patricia Butt RN Side Rails/Bed Safety 2/4 11/13/2024 7:14 AM EDT Patricia Butt RN Bed Alarms Off 11/13/2024 7:14 AM EDT Patricia Butt RN The Patient's Environment is Safe Yes 025 7:14 AM EDT Patricia Butt RN * Mobility Question Answer Date of Assessment Author Resting chair 11/13/2024 12:00 PM EDT Patricia Butt RN Activity Performed Chair 11/13/2024 12 :00 PM Patricia Malone RN Ambulation Response Tolerated well 11/12/2024 7:15 AM Patricia Malone RN Repositioned Up in chair 11/13/2024 12:00 PM Patricia Malone RN Level of Assistance Standby assist, set- up cues, supervision of patient - no hands on 11/13/2024 7:14 AM Patricia Malone RN Head of Bed Elevated Self regulated 11/13/2024 12:00 PM Patricia Malone RN Heels/Feet Foot of bed elevated 11/13/2024 7:14 AM Patricia Reynaga RN Range of Motion Active;All extremities 11/13/2024 7:14 AM Patricia Malone RN Anti-Embolism Devices Bilateral;Sequenti al compression devices, below knee 11/13/2024 7:14 AM Patricia Malone RN Anti-Embolism Intervention Off 11/13/2024 7:14 AM Patricia Malone RN Patient's mobility zone Zone 5 11/13/2024 7:14 A M Patricia Malone RN Positioning Frequency Able to turn self 11/14/19 12:00 PM Patricia Malone RN * Hygiene Question Answer Date of Assessment Author Constance wagoner Other (comment) 11/11/2024 9:06 PM EDT Olga Kennedy PCT Skin Care Incontinent cleanser 11/13/2024 7:14 AM Patricia Reynaga RN Hygiene Per self 11/13/2024 7:14 AM Patricia Malone RN Oral Care Per self 11/13/2024 7:14 AM Patricia Malone RN Level of Assistance Minimal assist 11/13/2024 7:14 AM Patricia Malone RN Is Patient Total Care? No 11/13/2024 7:14 AM Patricia Malone RN Incontinence Protective Devices None 11/13/2024 7:14 AM Patricia Malone RN CHG (Chlorhexidine Gluconate) Hygiene Wipes 11/13/2024 7:14 AM Patricia Malone RN * Precautions Question Answer Date of Assessment Author Precautions None 11/13/2024 7:14 AM Patricia Malone RN * Comfort and Environment Interventions Question Answer Date of Assessment Author Comfort Repositioned 11/13/2024 7:14 AM EDT Patricia Butt RN * ADL Screening Question Answer Date of Assessment Author Do you snore or wake up gasping for air? Yes 11/09/2024 12:17 PM Natalie Ford RN Can you bring in your CPAP/BiPAP from home? No 11/09/2024 12:17 PM Sidney Ford RN Patient's Vision Adequate to Safely Complete Daily Activities Yes 11/09/2024 12:17 PM Natalie Ford RN Patient's Judgment Adequate to Safely Complete Daily Activities Yes 11/09/2024 12:17 PM Natalie Ford RN Patient's Memory Adequate to Safely Complete Daily Activities Yes 11/09/2024 12:17 PM Natalie Ford RN Patient Able to Express Needs/Desires Yes 11/09/2024 12:17 PM Natalie Ford RN Dressing Independent 11/09/2024 12:17 PM Natalie Ford RN Grooming Independent 11/09/2024 12:17 PM Natalie Ford RN Feeding Independent 11/09/2024 12:17 PM Naatlie Ford RN Bathing Independent 11/09/2024 12:17 PM Natalie Ford RN Toileting Independent 11/09/2024 12:17 PM Natalie Ford RN In/Out Bed Independent 11/09/2024 12:17 PM Natalie Ford RN Walks in Home Independent 11/09/2024 12:17 PM Natalie Shannon RN Weakness of Legs None 11/09/2024 12:17 PM Natalie Ford RN Weakness of Arms/Hands None 11/09/2024 12:17 P M Natalie Ford RN Hearing - Right Ear Functional 11/09/2024 12:17 PM Natalie Ace RN Hearing - Left Ear Functional 11/09/2024 12:17 PM ED Natalie Tinsley RN * Consults Question Answer Date of Assessment Author Spiritual Care Consult Needed No 11/09/2024 12:18 PM Natalie Ford thread pulling machine attendant Consult Needed No 11/09/2024 12:18 PM EDT Natalie Whitley RN Palliative Care Consult Needed No 11/09/2024 12:18 PM EDT Natalie Whitley RN * Therapy Consults Question Answer Date of Assessment Author PT Evaluation Needed 2 11/09/2024 12:17 PM EDT Natalie Whitley RN OT Evaluation Needed 2 11/09/2024 12:17 PM EDT Natalie Whitley RN TATTOO TECHNICIAN Evaluation Needed 2 11/09/2024 12:17 PM EDT Natalie Whitley RN * Assistive Devices Question Answer Date of Assessment Author Assistive Devices Eyeglasses 11/09/2024 12:17 PM EDT Natalie Whitley RN * Provider Notification Question Answer Date of Assessment Author Provider Role Hospitalist 11/11/2024 6:39 PM EDT Stacie Keyes RN Communication Comments This RN notified provider patient CP unresolved at this time. Is now c/o dizziness and nausea after morphine inection. VS: BP 102/62 HR 82 11/11/2024 6:39 PM EDT Stacie Keyes RN Provider Name Tavares 11/11/2024 6:39 PM EDT Stacie Keyes RN Method of Communication Epic Chat 11/12/19 6:39 PM EDT Stacie Keyes RN Reason for Communication Review case 025 6:39 PM EDT Stacie Keyes RN Response Waiting for response 11/11/2024 6:39 PM EDT Stacie Keyes RN Notification Time [id number] 11/11/2024 6:3 9 PM EDT Stacie Keyes RN * Hampton Fall Risk Interventions Question Answer Date of Assessment Author Hampton Fall Risk Interventions Complete 025 7:14 AM EDT Patricia Butt RN * Suicidal Ideation Question Answer Date of Assessment Author 1. Wish to be (Lifetime) No 11/09/2024 12:19 PM EDT Natalie Whitley RN 2. Non-Specific Active Suici martha Thoughts (Lifetime) No 11/09/2024 12:19 PM EDT Natalie Whitley RN * Kris Coma Scale Question Answer Date of Assessment Author Best Eye Response Spontaneous 11/13/2024 7:14 AM EDT Patricia Butt RN Best Verbal Response Oriented 11/13/2024 7:14 AM E Patricia Tabor RN Best Motor Response Follows commands 11/13/2024 7:14 A M Patricia Malone RN [place] Coma Scale Score 15 11/13/2024 7:14 AM EDT Patricia Butt RN * Is this patient currently opioid tolerant (receiving at least 60 mg morphine equivalent per day (MME/day) for past 7 days or longer)? Answer Date of Assessment Author Opioid Tolerant 11/09/2024 12:28 PM EDT Shanna Lamas DO * Pain Assessment Question Answer Date of Assessment Author Pain Location Chest 11/10/2024 8:12 AM EDT Siena Manrique RN Pain Interventions Emotional support;Environmental changes 11/13/2024 7:14 AM EDPatricia Miranda RN Pain Radiating Towards back 8:12 AM EDT Siena Manrique RN Pain Descriptors Squeezing;Sharp 11/10/2024 8:12 AM EDT Siena Manrique RN Pain Onset Ongoing 11/10/2024 8:12 AM Siena Mcdowell RN Pain Frequency Intermittent 11/10/2024 8:12 AM Siena Mcdowell RN Response to Interventions Improved 11/13/2024 11:39 AM Patricia Malone RN Pain Type Chronic pain 11/13/2024 7:14 AM EDPatricia Miranda RN Clinical Progression Not changed 11/13/2024 7:14 AM Patricia Malone RN Patient Behaviors None 11/13/2024 7:1 4 AM Patricia Malone RN Pain Assessment 0-10 11/13/2024 7:14 AM EDT Patricia Butt RN * Nutrition Question Answer Date of Assessment Author Diet Type Regular 11/13/2024 7:14 AM Patricia Malone RN Feeding Able to feed self 11/13/2024 7:14 AM EDPatricia Miranda RN Appetite Fair 11/13/2024 7:14 AM EDT Patricia Butt RN * Integumentary Question Answer Date of Assessment Author Skin Color Appropriate for race 11/13/2024 7:14 AM E DT Patricia Butt RN Skin Condition/Temp Warm;Dry 11/13/2024 7:14 AM ED T Patricia Butt RN Skin Integrity Other (Comment) 11/12/2024 8:30 PM EDT Diamond Cardoza RN Skin Turgor Non-tenting 11/13/2024 7:14 AM EDT Patricia Butt RN Integumentary Additional Assessments Tattoos 11/13/2024 7:14 AM EDT Patricia Butt RN Integumentary (WDL) X 11/13/2024 7:14 AM ED T Patricia Butt RN Does patient have tattoos? Yes 11/13/2024 7:14 AM EDT Patricia Butt RN * GI Interventions Question Answer Date of Assessment Author GI Interventions Performed Encouraged adequate fiber intake;Encouraged adequate fluid intake 11/13/2024 7:14 AM EDT Patricia Butt RN * Question Answer Date of Assessment Author Which is your dominant hand? Right 11/13/2024 7 :14 AM EDT Patricia Butt RN * Pain Score Answer Date of Assessment Author 8 11/13/2024 2:16 PM EDT Fatuma Butt RN * Question Answer Date of Assessment Author Patient Goal for Treatment DC 11/13/2024 7:1 4 AM EDT Patricia Butt RN * Question Answer Date of Assessment Author Temp 98 11/13/2024 11:10 AM EDT Patricia Butt RN Temp src Temporal 11/13/2024 11:10 AM EDT Patricia Butt RN Pulse 70 11/13/2024 11:10 AM EDT Patricia Butt RN Resp 12 11/13/2024 11:10 AM EDT Patricia Butt RN Heart Rate Source Monitor 11/13/2024 11:10 AM EDT Patricia Butt RN BP Location Right arm 11/13/2024 11:10 AM EDT Patricia Butt RN BP Method Automatic 11/13/2024 11:10 AM EDT Patricia Butt RN Cardiac Rhythm NSR 11/13/2024 11:10 AM EDT Ca Patricia cutler RN Patient Position Lying 11/13/2024 11:10 AM EDT Patricia Butt RN * Care Plan - Safety Goals Question Answer Date of Assessment Author Free from fall injury Assess patient frequently for physical needs 11/13/2024 7:14 AM EDT Patricia Butt RN * Modified Malnutrition Screening Tool (MST) Question Answer Date of Assessment Author Have you recently lost weigh t without trying? 0 11/09/2024 12:16 PM EDT Natalie Whitley RN Have you been eating poorly because of a decreased appetite? 0 11/09/2024 12:16 PM EDT Natalie Garvey RN On home tube feeding or TPN? 0 11/09/2024 1 2:16 PM EDT Natalie Whitley RN * Weight Loss Score Answer Date of Assessment Author 0 11/09/2024 12:16 PM EDT Jono Whitley RN * Malnutrition Score Answer Date of Assessment Author 0 11/09/2024 12:16 PM EDT Jono Whitley RN documented as of this encounter Mental Status * Kris Coma Scale Question Answer Entry Date Author Best Eye Response Spontaneous 11/13/2024 7:14 AM EDT Patricia Butt RN Best Verbal Response Oriented 11/13/2024 7:14 AM E DT Patricia Butt RN Best Motor Response Follows commands 11/13/2024 7:14 A M EDT Patricia Butt RN Kris Coma Scale Score 15 11/13/2024 7:14 AM EDT Patricia Butt RN * Question Answer Entry Date Author Pond Agitation Sedation Scale (RASS) 0 11/13/2024 7:14 AM EDT Patricia Butt RN documented in this encounter Discharge Summaries * Marky Tavares MD - 11/13/2024 10:53 AM EDT Images from the original note were not included. 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 Juan Kong is an 34 y.o. female who came from home after a prolonged hospital stay. Her history is significant for HTN, HLD, asthma, RICHAR, hypothyroidism, GERD, IBS, fibromyalgia, T2DM, median arcuate ligament syndrome s/p celiac plexus block and MALS release, morbid obesity s/p sleeve gastrectomy, extensive chronic adhesions and recurrent obstructions, and gastroparesis s/p multiple infusions and J-tube c/b infection and removal who came as a direct admission from [facility] due tochest pain. Patient was hospitalized on 10/30/2024 for similar symptoms, and required coronary angiography and was found to have type III SCAD versus myocardial bridging in the mid LAD. Patient was started on aspirin, Plavix, metoprolol, and verapamil for medical treatment, and although some improvement was noted, patient required 2 more coronary angiography's in the next couple of days due to sharp shooting chest pain that resolved. Patient also had pseudoaneurysm repair complication after third catheterization as well as urinary retention that required Costello placement. Patient was discharged with improved chest pain and no more sharp pain episodes on 11/07/2024. Patient states she was supposed to be going to [facility] for PEG tube placement the next daywith her . As they were getting in the car, she started feeling similar chest pain, sharp shooting in nature, 10 out of 10, radiating to her left shoulder, along with diaphoresis, shortness ofbreath, and does not recall it being exacerbated with taking a deep breath. Patient was then taken to [facility] near [place], and was transferred from there to [facility] for appropriate workup of chest pain and continuation of care. She was admitted to hospitalist service for further evaluation and management. She was evaluated by cardiology team. She underwent stress test on 11/10. Although there was hot spot/excessive artifacts which made the study poor. However, the study did state Normal global left ventricular function with EF 73%. TID index score is 1.10 and No transient ischemia dilatation. Negative Lexiscan ECG stress test for ischemia. Patient continued to have chest pain during her hospital stay. Serial troponin and ECGs were ratherunremarkable. Cardiology was concerned for pericarditis and she was started on colchicine. There was concern for colchicine toxicity since she was started on ranolazine and verapamil. Her colchicine dose was discussed with cardiology and pharmacy and she is discharged on colchicine 0.3mg every other day as well as instructions on colchicine toxicity. CTA chest obtained on 9/27 showed no acute pulmonary embolism and no acute pulmonary process. Cardiology was agreeable to discharging the patient on 11/13/2024. Patient is discharged in stable condition to home on 11/13/2024. Surgical, Invasive or Diagnostic Procedures Done During Admission: None Consultations During Admission: Cardiology Dear MD Calix Bessie is advised to follow up with you within 1-2 weeks. Items to follow up in ambulatory setting: Follow-up serial CBCs Follow-up with: Cardiology Scheduled appointments: Future Appointments Date Time Provider Department Center 11/14/2024 3:20 PM Christina Rodriguez CNP [facility] 11/20/2024 2:30 PM Delphine Du NP [facility] 11/27/2024 2:15 PM Santa Wall CNP [facility] URO Second Fl 12/04/2024 10:00 AM Katie Altamirano MD [facility] Your medication list PAUSE taking these medications Instructions Last Dose Given Next Dose Due traMADol 50 mg tablet Wait to take this until your doctor or other care provider tells you to start again. Commonly known as: Ultram START taking these medications Instructions Last Dose Given Next Dose Due colchicine 0.6 mg tablet Start taking on: November 14, 2024 Take 0.5 tablets (0.3 mg) by mouth every other day for 49 doses. naloxone 0.4 mg/mL injection Commonly known as: Narcan Infuse 1 mL (0.4 mg) into a venous catheter if needed for opioid reversal. ranolazine 500 mg 12 hr tablet Commonly known as: Ranexa Take 1 tablet (500 mg) by mouth two times daily for 189 doses. Do not crush, chew, or split. CHANGE how you take these medications Instructions Last Dose Given Next Dose Due fentaNYL 25 mcg/hr Commonly known as: Duragesic What changed: Another medication with the same name was removed. Continue taking this medication, and follow the directions you see here. CONTINUE taking these medications Instructions Last Dose Given Next Dose Due acetaminophen 325 mg tablet Commonly known as: Tylenol ALBUTEROL INHL aspirin 81 mg chewable tablet Chew 1 tablet (81 mg) with breakfast for 120 doses. clopidogrel 75 mg tablet Commonly known as: Plavix Take 1 tablet (75 mg) by mouth in the morning for 120 doses. escitalopram 20 mg tablet Commonly known as: Lexapro hydrocortisone 10 mg tablet Commonly known as: Cortef hydrOXYzine HCL 25 mg tablet Commonly known as: Atarax levothyroxine 75 mcg tablet Commonly known as: Synthroid, Levoxyl liothyronine 5 mcg tablet Commonly known as: Cytomel metFORMIN (OSM) 500 mg 24 hr tablet Commonly known as: Fortamet methocarbamol 500 mg tablet Commonly known as: Robaxin metoclopramide 10 mg tablet Commonly known as: Reglan Take 1 tablet (10 mg) by mouth if needed in the morning and at bedtime (nausea and vomiting). metoprolol succinate XL 25 mg 24 hr tablet Commonly known as: Toprol-XL Take 1 tablet (25 mg) by mouth in the morning for 92 doses. Do not crush or chew. Do not start before November 08, 2024. mirtazapine 30 mg tablet Commonly known as: Remeron omeprazole [address] capsule Commonly known as: PriLOSEC prucalopride 2 mg tablet rosuvastatin 40 mg tablet Commonly known as: Crestor Take 1 tablet (40 mg) by mouth at bedtime for 99 doses. sucralfate 1 gram tablet Commonly known as: Carafate topiramate 100 mg tablet Commonly known as: Topamax traZODone 100 mg tablet Commonly known as: Desyrel verapamil 40 mg tablet Commonly known as: Calan Take 1 tablet (40 mg) by mouth every 8 (eight) hours for 287 doses. STOP taking these medications ergocalciferol 1.25 MG (43800 Units) capsule Commonly known as: Vitamin D-2 HYDROcodone-acetaminophen 5-325 mg tablet Commonly known as: Laverne Where to Get Your Medications These medications were sent to [facility] - [address] [place] [address] [facility] [place] [address], [facility] [address] colchicine 0.6 mg tablet naloxone 0.4 mg/mL injection ranolazine 500 mg 12 hr tablet Juan is allergic to codeine, nsaids (non-steroidal anti-inflammatory drug), and adhesive. Disposition: Home-Health Care [facility] () Discharge Condition: Stable Code Status: Full Code Diagnostic Results Hematology: Results from last 7 days Lab Units 11/13/24 0703 11/12/24 0630 11/11/24 1529 CRP mg/L -- -- 13.4* WBC AUTO 10*3/uL 3.34* 3.43* -- HEMOGLOBIN g/dL 8.6* 8.6* -- HEMATOCRIT % 26.2* 26.0* -- MCV fL 91.0 90.6 -- PLATELETS AUTO 10*3/uL 257 247 -- Chemistry: Results from last 7 days Lab Units 11/13/24 0703 11/12/24 0630 11/11/24 0639 11/09/24 1409 11/07/24 0450 SODIUM mmol/L 140 140 137 138 139 POTASSIUM mmol/L 3.8 3.9 3.7 3.9 3.9 CHLORIDE mmol/L 108* 108* 104 105 105 CO2 mmol/L BUN mg/dL 9 10 13 14 14 CREATININE mg/dL 0.72 0.67 0.68 0.57* 0.52* GLUCOSE mg/dL 81 88 117* 100 87 MAGNESIUM mg/dL -- -- -- 2.0 2.1 CALCIUM mg/dL 8.4* 8.5* 8.3* 8.3* 8.3* PHOSPHORUS mg/dL -- -- -- -- 4.7 No lab exists for component: AFIO2 , APHT , APCOT , APOT , ATCO2 , CK , ALB , IBILI Test Results Pending At Discharge: Diet at the time of discharge: regular diet Nutrition Screen Activity: Patient currently has no discharge activity orders Objective Blood pressure 96/59, pulse 72, temperature 36.9 ??C (98.4 ??F), temperature source Temporal, resp.rate 16, height 1.676 m (5' 5.98 ), weight 84 kg (185 lb 3.2 oz), SpO2 100%. Physical Exam Vitals reviewed. Constitutional: General: She is not in acute distress. Appearance: She is not ill-appearing or toxic-appearing. HENT: Head: Normocephalic and atraumatic. Mouth/Throat: Mouth: Mucous membranes are moist. Eyes: General: No scleral icterus. Extraocular Movements: Extraocular movements intact. Pupils: Pupils are equal, round, and reactive to light. Cardiovascular: Rate and Rhythm: Normal rate. Pulmonary: Effort: Pulmonary effort is normal. No respiratory distress. Breath sounds: No stridor. Abdominal: General: There is no distension. Palpations: Abdomen is soft. Neurological: Mental Status: She is alert. Mental status is at baseline. Cranial Nerves: No cranial nerve deficit. Psychiatric: Mood and Affect: Mood normal. Behavior: Behavior normal. Thought Content: Thought content normal. Judgment: Judgment normal. Total time for discharge - review of data, exam, discussion with providers and care-team, med-rec and orders, arranging follow up, counseling of patient and/or family and documentation was 32 minutes. Signed Marky Tavares MD [facility] 11/13/2024 10:53 AM CC: MD Evette documented in this encounter Discharge Instructions * Discharge Instructions* Brianna Ling RN - 11/13/2024 10:32 AM EDT * Discharge Instr - AVS First Page* Brianna Ling RN - 11/13/2024 11:22 AM EDT -Please contact your primary care provider regarding any questions or concerns about your medical condition(s). -If you need immediate medical attention, please dial 9-1-1 or go to your closest emergency department. * Discharge Instr - Activity* Brianna Ling RN - 11/13/2024 10:36 AM EDT -Activity as tolerated. -Ambulate frequently, and with assistance as needed for safety. -Maintain fall risk precautions at home to prevent falls, and possible injury. Fall risk precautionrecommendations are included at the end of this document. * Discharge Instr - Diet* Brianna Ling RN - 11/13/2024 10:37 AM EDT Diet Orders: -Regular textured diet, with thin liquids. -Please maintain adequate hydration to prevent dehydration and/or constipation. Nutritional Supplementation Orders: -Boost Glucose Control (or equivalent): 8 fl oz by mouth twice daily. Flavor per patient preference. TPN: -Resume home TPN order, schedule: Wednesday, Wednesday, Wednesday -3-in- cyclic administration x 16 hr, 3 hr taper down Dextrose 200 g AA 90 g IVFE 20% 50 g Volume 2300 ml Na acetate 85 meq K acetate 85 meq Mg sulfate 24 meq Ca gluconate 10 meq Na Phos 30 mmol MVI MTE Cu 0.2 mg Zn 3 mg * Appointments* Brianna Ling RN - 11/13/2024 11:24 AM EDT -Please follow up with the providers listed above. -If you are unable to keep your appointments, please call to reschedule as soon as possible. -Failure to cancel/reschedule your appointments, may result in dismissal from your medical providers practice(s). * Discharge Instr - Other Orders* Brianna Ling RN - 11/13/2024 10:38 AM EDT Important Information from Your Care Team: Please follow up with primary care physician within 1 week. Please follow up with cardiology within 1 week. Please take medications as prescribed. Please have a lab work (CBC) completed on 11/16/2024. Please watch for symptoms of colchicine toxicity. Symptoms of colchicine toxicity include abdominalpain; nausea or vomiting; severe diarrhea; muscle weakness or pain; numbness or tingling in the fingers or toes; myelosuppression; feeling weak or tired; increased infections; and pale or sullivan color of the lips, tongue, or palms of hands. If you experience these symptoms, please stop taking colchicine and return to the hospital immediately. Please do not hesitate to return to the hospital if you have any concerning symptoms. Intravenous Access Care Instructions: Type: CVC single lumen Location: Right subclavian Care Instructions: -Keep clean, dry, and covered at all times. -Dressing changes per home healthcare protocol. -Monitor for bleeding and signs/symptoms of infection (increased redness, swelling, pain, and warmth around the wound, increased drainage. -If any of these symptoms occur please contact your PCP as soon as possible. Post-operative Care Instructions: Procedure: Pseudoaneurysm of right femoral artery s/p hematoma evaluation and repair of pseudoaneurysm on 11/02 -Steri strips are in place. Please do not remove these. Allow the steri strips to curl up and fall off on their own. -Keep area clean and dry. -Monitor for bleeding and signs/symptoms of infection (increased redness, swelling, pain, and warmth around the wound, increased drainage) -If any of these symptoms occur please contact your PCP/Vascular surgeon as soon as possible. * Attachments The following attachments cannot be sent through Care Everywhere. * Fall Prevention in the Home Adult [id number] (Vietnamese) documented in this encounter Medications at Time [...] 120 doses. 30 tablet 3 11/03/2024 6 colchicine 0.6 mg tabletIndication s:Chest pain Take 0.5 tablets (0.3 mg) by mouth every other day. Do not start before November 14, 2024. 8 tablet 11/14/2024 5 escitalopram (Lexapro) 20 mg tablet Take 20 [...] Take 45 mg by mouth at bedtime. naloxone (Narcan) 0.4 mg/mL injectionIndicat ions:Chronic narcotic use Infuse 1 mL (0.4 mg) into a venous catheter if needed for opioid reversal. 1 mL 11/13/2024 5 omeprazole (PriLOSEC) [address] capsule Take 40 mg by mouth before breakfast and before evening meal. Do not crush or chew. prucalopride 2 mg tablet Take 2 mg by mouth in the morning. ranolazine (Ranexa) 500 mg 12 hr tabletIndication s:Chest pain Take 1 tablet (500 mg) by mouth two times daily for 189 doses. Do not crush, chew, or split. 60 tablet 3 11/13/2024 6 rosuvastatin (Crestor) 40 mg tabletIndication s:Hematoma Take [...] for 287 doses. 90 tablet 3 11/07/2024 documented as of this encounter Progress Notes * Deepika Diallo - 11/13/2024 10:43 AM EDT discharge planning: to Home with [address] [facility] resuming [address]; Patient recently discharged with [address] services, waiting to hear back from [address] to confirm if Patient still active on their services [address] confirmed Patient active with them and they can resume; team notified; [id number] added to AVS 1310 AVS sent to [address], via [employer] system * Lisa Pena DO - 11/13/2024 8:03 AM EDT Images from the original note were not included. Cardiology Progress Note Subjective Subjective: 11/13/2024 Patient seen and examined at bedside, no acute events overnight, vital signs are stable. Will continue patient's regimens as prescribed, verapamil, metoprolol, and colchicine for at least 1 month prior to discontinuing. She will see Dr. Collins within 1 week of discharge for continued chest pain management, and patient states that her chest pain is improving throughout the days. Last sharp shooting episode was approximately 18 hours ago. 11/12/2024 Seen and examined this morning. No acute events overnight. Complaining of the same chest pain whichstarted this morning, described as chest pressure radiating to left shoulder and back associated with SOB. Placed on 2L NC. 11/11/24 Patient seen and examined at bedside, overnight patient was having chest pain sharp shooting in nature, and had another episode earlier this morning. Patient's pain meds switched from morphine to Dilaudid which helps alleviate the point better for patient's opinion. Starting colchicine decreased dose of 0.3 mg as verapamil and Ranexa have drug interaction with colchicine. 11/10/2024 Patient was seen and examined at bedside, no acute events overnight, vital signs are stable. Statesthat she had severe sharp shooting chest pain this morning for 25 minutes and resolved after receiving morphine 2 mg. Per MAR, patient received morphine 2 mg at 12 AM, 4 AM, and 8 AM. Pending Lexiscan results, and repeat 2 troponins as well as ECG. History: Juan Kong is a 34 y.o. female w/ PMHx significant for HTN, HLD, asthma, RICHAR, hypothyroidism, GERD, IBS, fibromyalgia, T2DM, median arcuate ligament syndrome s/p celiac plexus block and MALS release, morbid obesity s/p sleeve gastrectomy, extensive chronic adhesions and recurrent obstructions, and gastroparesis s/p multiple infusions and J-tube c/b infection and removal who came as a direct admission from [facility] due to chest pain. Patient was hospitalized on 10/30/2024 for similar symptoms, and required coronary angiography and was found to have type III SCAD versus myocardial bridging in the mid LAD. Patient was started on aspirin, Plavix, metoprolol, and verapamil for medical treatment, and although some improvement was noted, patient required 2 more coronary angiography's in the next couple of days due to sharp shooting chest pain that resolved. Patient also had pseudoaneurysm repair complication after third catheterization as well as urinary retention that required Costello placement. Patient was discharged with improved chest pain and no more sharp pain episodes on 11/07/2024. Patient states she was supposed to be going to [facility] for PEG tube placement the next daywith her . As they were getting in the car, she started feeling similar chest pain, sharp shooting in nature, 10 out of 10, radiating to her left shoulder, along with diaphoresis, shortness ofbreath, and does not recall it being exacerbated with taking a deep breath. Patient was then taken to [facility] near [place], and was transferred from there to [facility] for appropriate workup of chest pain and continuation of care. TTE on 10/31/2024 shows EF 53% with biplane calculations, and 50 to 55% on estimation with regional WMA basal inferolateral, mid anterior, mid anteroseptal, mid inferoseptal, mid inferolateral and apical lateral left ventricular wall segments. Objective Current Medications[1] Objective: Patient Vitals for the past 24 hrs: BP Temp Temp src Pulse Resp SpO2 Weight 11/13/24 0714 91/52 36.9 ??C (98.4 ??F) Temporal 87 16 100 % -- 11/13/24 0700 105/67 -- -- -- -- -- -- 11/13/24 0527 -- -- -- -- -- -- 84 kg (185 lb 3.2 oz) 11/13/24 0302 102/54 -- -- 69 11 100 % -- 11/13/24 0010 111/50 -- -- 75 20 100 % -- 11/12/24 2323 102/53 -- -- 67 12 100 % -- 11/12/24 2141 102/52 -- -- -- -- -- -- 11/12/24 2030 100/56 36.1 ??C (97 ??F) Temporal 77 15 100 % -- 11/12/24 1627 106/50 35.9 ??C (96.6 ??F) Temporal 63 11 99 % -- 11/12/24 1421 99/57 -- -- -- -- -- -- 11/12/24 1217 110/68 35.8 ??C (96.5 ??F) Temporal 74 12 100 % -- 11/12/24 0839 109/58 -- -- 76 -- -- -- Physical Examination: Physical Exam Constitutional: [...] Judgment normal. Relevant Lab Results Encounter Date: 11/09/24 ECG 12 lead Result Value Ventricular Rate 73 Atrial Rate 73 [place] Interval 156 QRS DURATION 88 QT Interval 414 QTC CALCULATION(BAZETT) 456 P [place] 65 R-[place] 46 T Wave [place] 61 Impression Normal sinus rhythm Normal ECG When compared with ECG of 11-NOV-2024 18:10, no significant change was noted Confirmed by Griffin Diaz ([id number]) on 11/12/2024 7:44:39 PM No results found for: CKTOTAL , CKMB , CKMBINDEX , TROPONINI Limited Echo (TTE) w/wo Limited Doppler, Color Flow, Imaging Agent, Strain, 3D, Bubble Study Result Date: 10/31/2024 1 1 [facility] Heart Station [address] [id number] [phone] (fax) Echocardiogram-[facility] Name: JUAN KONG Study Date: 10/31/2024 11:16 AM B/P: 106 mmHg/67 mmHg HR: 70 bpm Date of : 1990 [facility] Age: 34 year(s) Patient [...] minimal pericardial effusion. Procedure Staff Reading Group: [facility] Jammer Hooker: Raegan Cardona BS, RDCS Ordering Physician: SARITHA RITTER Wall Motion Scores -1 - hyperkinesia, 0 - not evaluated, 1 - normal, 2 - hypokinesia, 3 - akinesia, 4 - dyskinesia No nuclear medicine results found for the past 12 months Relevant Imaging Results ECG 12 lead Normal sinus rhythm Normal ECG When compared with ECG of 11-NOV-2024 18:10, no significant change was noted Confirmed by Griffin Diaz ([id number]) on 11/12/2024 7:44:39 PM ECG 12 lead Sinus rhythm with Premature supraventricular complexes Otherwise normal ECG When compared with ECG of 10-NOV-2024 15:02, Premature supraventricular complexes are now Present Confirmed by Juan SIERRA, JONELLE Harmon ([id number]) on 11/12/2024 1:21:31 PM ASSESSMENT Concern for pericarditis HST normal. ECG NSR. Elevated ESR 20. 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 Since there is good coronary artery blood flow and the SCAD is non-flow limiting, medical therapy is recommended Negative Lexiscan results with 3 TID 1.10 showing no transient ischemic dilation Myocardial bridging of mid LAD Right Groin Hematoma, right groin pseudoaneurysm s/p repair 11/02/24 SCAD type III in mid LAD T2DM Morbid obesity s/p sleeve gastrectomy IBS HTN HLD RICHAR GERD Hypothyroidism Asthma H/O median arcuate ligament syndrome s/p celiac plexus block and MALS release H/O extensive chronic adhesions and recurrent obstructions Gastroparesis s/p daily infusions and J-tube C/B infection and removal Fibromyalgia PLAN CTA coronaries discontinued as this will not bladder changer Continue on toprol 50 mg daily Continue colchicine 0.3 mg every other day for minimum of 1 month Follow up CRP pending Continue Ranexa 500 mg BID Continue verapamil 40 mg q8 Continue aspirin 81 mg and Plavix 75 mg dailya dn crestor 40 mg Continue Toprol 25 mg daily and verapamil 40 mg every 8 hours Replete electrolytes with K above 4.0, and Mg above 2.0 Rest of care per primary team Patient will follow-up with Dr. Collins in the OP setting within 1 week of discharge @ 11/28 at 11amin [facility] will sign off as there are no further recommendations. Please call with any questions orconcerns. This note was, at least in part, completed using a voice clergy member system. Every effort was made to ensure accuracy. However, inadvertent computerized clergy member errors may be present. Lisa Pena DO Internal Medicine Resident, PGY-2 [facility] 8:05 AM 11/13/24 [1] Current Facility-Administered Medications: acetaminophen (Tylenol) tablet 650 mg, 650 mg, oral, q4h PRN, Shanna Lamas DO albuterol 90 mcg/actuation inhaler 2 puff, 2 puff, inhalation, q6h PRN, Shanna Lamas DO aspirin chewable tablet 81 mg, 81 mg, oral, Daily with breakfast, Shanna Lamas DO, 81 mg at 11/12/24 0839 clopidogrel (Plavix) tablet 75 mg, 75 mg, oral, Daily, Shanna Lamas DO, 75 mg at 11/12/24 0839 colchicine split tablet 0.3 mg, 0.3 mg, oral, Every other day, Lisa Pena DO, 0.3 mg at 905 glucose chewable tablet 24 g, 24 g, oral, q15 min PRN OR dextrose 50 % in water (D50W) syringe 25 g, 25 g, intravenous, q15 min PRN, Shanna Lamas DO diphenhydrAMINE (BENADryl) injection 50 mg, 50 mg, intravenous, q6h PRN, Shanna Lamas DO, 50 mg at 11/13/24 0652 docusate sodium (Colace) capsule 100 mg, 100 mg, oral, BID, Debbie Mahmoodkl, BUREAU DIRECTOR, 100 mg at 11/12/24 2141 escitalopram (Lexapro) tablet 20 mg, 20 mg, oral, Daily, Shanna Lamas DO, 20 mg at 11/12/24 0839 fentaNYL (Duragesic) 12 mcg/hr 1 patch, 1 patch, transdermal, q72h, Shanna Lamas DO, 1 patch at 11/12/24 1430 fentaNYL (Duragesic) 25 mcg/hr 1 patch, 1 patch, transdermal, q72h, Shanna Lamas DO, 1 patch at 11/12/24 1430 hydrocortisone (Cortef) tablet 10 mg, 10 mg, oral, Daily, Shanna Lamas DO, 10 mg at 11/12/24 0839 HYDROmorphone (Dilaudid) injection 0.3 mg, 0.3 mg, intravenous, q4h PRN, Marky Tavares MD, 0.3 mgat 11/13/24 0722 hydrOXYzine HCL (Atarax) tablet 50 mg, 50 mg, oral, Nightly PRN, Shanna Lamas DO insulin lispro (HumaLOG) injection 0-5 Units, 0-5 Units, subcutaneous, q6h TANIA, Marky Tavares MD,1 Units at 11/11/24 1800 kit prep Tc 99m-sestamibi no.1 (Cardiolite) radio-isotope injection 10 millicurie, 10 millicurie, intravenous, Once in imaging, Marky Tavares MD, 10 millicurie at 11/10/24 0945 kit prep Tc 99m-sestamibi no.1 (Cardiolite) radio-isotope injection 30 millicurie, 30 millicurie, intravenous, Once in imaging, Marky Tavares MD, 30 millicurie at 11/10/24 1121 levothyroxine (Synthroid, Levoxyl) tablet 75 mcg, 75 mcg, oral, Daily before breakfast, Shanna Lamas DO, 75 mcg at 11/13/24 0700 liothyronine (Cytomel) tablet 5 mcg, 5 mcg, oral, Daily, Shanna Lamas DO, 5 mcg at 11/12/24 0838 methocarbamol (Robaxin) tablet 750 mg, 750 mg, oral, 4x daily, Shanna Lamas DO, 750 mg at 11/12/242140 metoclopramide (Reglan) tablet 10 mg, 10 mg, oral, BID PRN, Shanna Lamas DO metoprolol succinate XL (Toprol-XL) 24 hr tablet 50 mg, 50 mg, oral, Daily, Moath Elhady, DO, 50 mgat 11/12/24 08 mirtazapine (Remeron) tablet 45 mg, 45 mg, oral, Nightly, Shanna Lamas DO, 45 mg at 11/12/242139 naloxone (Narcan) injection 0.4 mg, 0.4 mg, intravenous, PRN, Marky Tavares MD nitroglycerin (Nitrostat) SL tablet 0.4 mg, 0.4 mg, sublingual, q5 min PRN, Demian Wilson MD, 0.4 mg at 11/11/24 182 oxyCODONE (Roxicodone) immediate release tablet 5 mg, 5 mg, oral, q4h PRN, Marky Tavares MD, 5 mgat 11/13/24 0045 pantoprazole (ProtoNix) EC tablet 40 mg, 40 mg, oral, BID AC, Shanna Lamas DO, 40 mg at 11/13/24 0700 polyethylene glycol (Glycolax) packet 17 g, 17 g, oral, Daily, Shanna Lamas DO, 17 g at 11/12/24 0839 ranolazine (Ranexa) 12 hr tablet 500 mg, 500 mg, oral, BID, Mocatalina Elhabean, DO, 500 mg at 11/12/242139 rosuvastatin (Crestor) tablet 40 mg, 40 mg, oral, Nightly, Shanna Lmaas DO, 40 mg at 140 Insert peripheral IV, , , Once AND Saline lock IV, , , Once AND sodium chloride flush 10 mL, 10 mL, intravenous, q8h PRN, Shanna Lamas DO sucralfate (Carafate) tablet 1 g, 1 g, oral, Before meals & nightly, Shanna Lamas DO, 1 gat 11/13/24 0700 topiramate (Topamax) tablet 100 mg, 100 mg, oral, BID, Shanna Lamas DO, 100 mg at 11/12/24 2140 traZODone (Desyrel) tablet 100 mg, 100 mg, oral, Nightly, Shanna Lamas DO, 100 mg at 141 trimethobenzamide (Tigan) injection 200 mg, 200 mg, intramuscular, q6h PRN, Marky Tavares MD, 200mg at 11/11/24 1851 verapamil (Calan) tablet 40 mg, 40 mg, oral, q8h TANIA, Shanna Lamas DO, 40 mg at 11/13/24 0700 Cosigned by Tino Gilmore MD at 11/13/2024 6:02 PM EDT Associated attestation - Tino Gilmore MD - 11/13/2024 6:02 PM EDT By using the attestations below, [...] reviewed and confirm the documentation by the Resident Dr Lisa Pena. Please note there may be an additional personal documentation from me. She is doing much better today. No more chest pain. I am canceling the CT angiogram of the coronaries as it will not make any difference in the management. We will not proceed with cardiac catheterization given very low yield of possible benefit and high risk given her prior history. Therefore we wi ll continue current medical therapy. She can be discharged from a cardiac perspective. Tino Gilmore MD * Marky Tavares MD - 11/12/2024 12:37 PM EDT Images from the original note were not included. [facility] Medicine Daily Progress Note - 11/12/2024 12:37 PM; Room: [facility]- Admission: 11/09/2024 10:47 AM; Length of stay: 1 days THE HOSPITALIST TEAM PREFERS TO USE [facility] FOR NON-URGENT COMMUNICATION 7AM- 7PM. IF I DO NOT RESPOND WITHIN 20 MINUTES OR URGENT MATTERS, PLEASE CALL THROUGH THE CLINICAL REVIEW NURSE. FROM 7PM-7AM, PLEASE PAGE [phone](COVR). Code Status: Full Code Barriers to Discharge: CTA coronary artery Expected Discharge Date: 11/13? Discharge Destination: home? Overview Patient is seen for evaluation and management of chest pain. Subjective Patient seen and examined in the morning. She was resting in recliner. She was stating that she has9/10 chest pain. Troponin not elevated and ECGs have shown sinus rhythm with few PVCs. Trialed a dose of ativan and it did not help. CTA chest did not show any acute finding. Physical Exam Visit Vitals BP 110/68 (BP Location: Right arm, Patient Position: Sitting) Pulse 74 Temp 35.8 ??C (96.5 ??F) (Temporal) Resp 12 Intake/Output Summary (Last 24 hours) at 11/12/2024 1237 Last data filed at 11/12/2024 0928 Gross per 24 hour Intake 887.38 ml Output -- Net 887.38 ml Physical Exam Vitals reviewed. Constitutional: General: She is not in acute distress. Appearance: She is not ill-appearing or toxic-appearing. HENT: Head: Normocephalic and atraumatic. Mouth/Throat: Mouth: Mucous membranes are moist. Eyes: General: No scleral icterus. Extraocular Movements: Extraocular movements intact. Pupils: Pupils are equal, round, and reactive to light. Cardiovascular: Rate and Rhythm: Normal rate. Pulmonary: Effort: Pulmonary effort is normal. No respiratory distress. Breath sounds: No stridor. Abdominal: General: There is no distension. Palpations: Abdomen is soft. Neurological: Mental Status: She is alert. Cranial Nerves: No cranial nerve deficit. Psychiatric: Mood and Affect: Mood normal. Behavior: Behavior normal. Thought Content: Thought content normal. Judgment: Judgment normal. Estimated body mass index is 30.39 kg/m?? as calculated from the following: Height as of this encounter: 1.676 m (5' 5.98 ). Weight as of this encounter: 85.4 kg (188 lb 3.2 oz). 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 Since there is good coronary artery blood flow and the SCAD is non-flow limiting, medical therapy is recommended - cards following, appreciate recommendations Lexiscan completed, significant artifact, but overall not positive Continue aspirin 81 mg and Plavix 75 mg daily Closely monitor Hgb Transfuse for hemoglobin < 8 Continue Toprol 25 mg daily and verapamil 40 mg every 8 hours May need to uptitrate verapamil if BP allows 4. Pending CTA coronary artery Pseudoaneurysm of right femoral artery -s/p hematoma evaluation and repair of pseudoaneurysm on 11/02 -stable around 8.5 - follow Hgb with daily CBC Hypothyroidism -resume home meds Gastroparesis Median arcuate ligament syndrome S/P laparoscopic sleeve gastrectomy - currently on TPN and regular diet - consulted dietary for TPN. TPN has been started History of adrenal insufficiency -stable - cont cortef Type 2 diabetes mellitus without complication, without long-term current use of insulin ([facility]) - ISS - Blood glucose is well controlled on 11/12 without significant use of insulin IBS (irritable bowel syndrome) - on prucalopride outpt Chronic pain syndrome -resumed her fentanyl patch. Changed norco to roxicodone - Changed morphine IV to dilaudid IV according to morphine equivalent VTE Prophylaxis: epc Scheduled Meds aspirin, 81 mg, oral, Daily with breakfast clopidogrel, 75 mg, oral, Daily colchicine, 0.3 mg, oral, Every other day docusate sodium, 100 mg, oral, BID escitalopram, 20 mg, oral, Daily fentaNYL, 1 patch, transdermal, q72h fentaNYL, 1 patch, transdermal, q72h hydrocortisone, 10 mg, oral, Daily insulin lispro, 0-5 Units, subcutaneous, q6h TANIA kit prep Tc 99m-sestamibi no.1, 10 millicurie, intravenous, Once in imaging kit prep Tc 99m-sestamibi no.1, 30 millicurie, intravenous, Once in imaging levothyroxine, 75 mcg, oral, Daily before breakfast liothyronine, 5 mcg, oral, Daily methocarbamol, 750 mg, oral, 4x daily metoprolol succinate XL, 50 mg, oral, Daily mirtazapine, 45 mg, oral, Nightly pantoprazole, 40 mg, oral, BID AC polyethylene glycol, 17 g, oral, Daily ranolazine, 500 mg, oral, BID rosuvastatin, 40 mg, oral, Nightly sucralfate, 1 g, oral, Before meals & nightly topiramate, 100 mg, oral, BID traZODone, 100 mg, oral, Nightly verapamil, 40 mg, oral, q8h TANIA Pertinent Investigations Hematology: Results from last 7 days Lab Units 11/12/24 0630 11/11/24 0639 WBC AUTO 10*3/uL 3.43* 3.76* HEMOGLOBIN g/dL 8.6* 8.8* HEMATOCRIT % 26.0* 26.7* MCV fL 90.6 90.5 PLATELETS AUTO 10*3/uL 247 243 Chemistry: Results from last 7 days Lab Units 11/12/24 0630 11/11/24 0639 11/09/24 1409 11/07/24 0450 11/06/24 0550 SODIUM mmol/L 140 137 138 139 139 POTASSIUM mmol/L 3.9 3.7 3.9 3.9 3.9 CHLORIDE mmol/L 108* 104 105 105 105 CO2 mmol/L 26 27 27 28 27 BUN mg/dL 10 13 14 14 12 CREATININE mg/dL 0.67 0.68 0.57* 0.52* 0.61 GLUCOSE mg/dL 88 117* 100 87 85 MAGNESIUM mg/dL -- -- 2.0 2.1 1.9 CALCIUM mg/dL 8.5* 8.3* 8.3* 8.3* 8.4* PHOSPHORUS mg/dL -- -- -- 4.7 4.7 No lab exists for component: AFIO2 , APHT , APCOT , APOT , ATCO2 , CK , ALB , IBILI Results from last 7 days Lab Units 11/12/24 0627 11/11/24 2356 11/11/24 1716 11/11/24 1249 11/11/24 0635 11/11/24 0055 POCT GLUCOSE mg/dL 97 82 162* 138* 125* 138* Historical Values: (Includes values prior to this admission) Lab Results Component Value Date TSH 3.46 10/30/2024 HDL 43 10/31/2024 LDL 73 10/31/2024 No results found for: [id number] , IRON , TIBC , C3 , C4 , MISAEL , CANCA , ASO , PSA , CEA , CA125 , CA199 , AFP , CA153 Imaging CTA Chest W IV Contrast Narrative: CTA CHEST W IV CONTRAST HISTORY: Chest pain and shortness of breath. COMPARISON: None. TECHNIQUE: Contiguous axial images are obtained of the Chest with 100 mL of Omnipaque 350 IV contrast. Coronal and sagittal reconstructions were performed and reviewed. Sagittal and coronal reformatted images with 3-D Maximum intensity projection reconstructions constructed under concurrent physician supervision on a separate workstation. Automatic exposure control was utilized. All CT scans at this facility use dose modulation, iterative reconstruction, and/or weight based dosing when appropriate to reduce radiation dose to as low as reasonably achievable. FINDINGS: LUNGS/PLEURA: The airways are patent. No pneumothorax or pleural effusion. No focal consolidation. Mild bibasilar dependent atelectasis. HEART/VESSELS/MEDIASTINUM: No cardiomegaly or pericardial effusion. The aorta is nonaneurysmal and without dissection. The pulmonary trunk is non-dilated. No filling defects of the main pulmonary arteries, lobar branches, or segmental branches to suggest emboli. No significant coronary artery calcifications. No enlarged mediastinal or hilar lymph nodes. Right IJ central venous catheter terminates in the right atrium. LOWER NECK AND UPPER ABDOMEN: The visualized thyroid is unremarkable. No acute abnormality within the visualized abdomen. Similar appearance of numerous hypoattenuating hepatic lesions, larger of which represent simple cysts, and smaller of which are too small to characterize. Postoperative changes of the stomach compatible with gastric bypass. MUSCULOSKELETAL: No acute osseous abnormality. Impression: No evidence of pulmonary embolism or other acute intrathoracic process. Approved by:Claus Sams11/11/2024 9:16 PM. I, Rebecca Solano,have reviewed the image(s) and agree with the findings in this report. Electronically signed: Tarek Moustafa. ECG 12 lead Sinus rhythm with Premature supraventricular complexes Otherwise normal ECG When compared with ECG of 10-NOV-2024 15:02, Premature supraventricular complexes are now Present ECG 12 lead Normal sinus rhythm Normal ECG When compared with ECG of 10-NOV-2024 07:58, (unconfirmed) No significant change was found Confirmed by Juan SIERRA, JONELLE Harmon ([id number]) on 11/11/2024 12:45:54 PM ECG 12 lead Normal sinus rhythm Normal ECG When compared with ECG of 09-NOV-2024 12:16, No significant change was found Confirmed by Erlin Geller ([id number]) on 11/11/2024 1:19:49 AM Discharge Planning Expected Discharge Disposition: Home-Health Care [facility] (06) Signed Marky Tavares MD [facility] Medicine 11/12/2024 12:37 PM * Gerry Batista MD - 11/12/2024 8:07 AM EDT Images from the original note were not included. Cardiology Progress Note Subjective Subjective: 11/12: Seen and examined this morning. No acute events overnight. Complaining of the same chest pain whichstarted this morning, described as chest pressure radiating to left shoulder and back associated with SOB. Placed on 2L NC. 11/11/24 Patient seen and examined at bedside, overnight patient was having chest pain sharp shooting in nature, and had another episode earlier this morning. Patient's pain meds switched from morphine to Dilaudid which helps alleviate the point better for patient's opinion. Starting colchicine decreased dose of 0.3 mg as verapamil and Ranexa have drug interaction with colchicine. 11/10/2024 Patient was seen and examined at bedside, no acute events overnight, vital signs are stable. Statesthat she had severe sharp shooting chest pain this morning for 25 minutes and resolved after receiving morphine 2 mg. Per MAR, patient received morphine 2 mg at 12 AM, 4 AM, and 8 AM. Pending Lexiscan results, and repeat 2 troponins as well as ECG. History: Juan Kong is a 34 y.o. female w/ PMHx significant for HTN, HLD, asthma, RICHAR, hypothyroidism, GERD, IBS, fibromyalgia, T2DM, median arcuate ligament syndrome s/p celiac plexus block and MALS release, morbid obesity s/p sleeve gastrectomy, extensive chronic adhesions and recurrent obstructions, and gastroparesis s/p multiple infusions and J-tube c/b infection and removal who came as a direct admission from [facility] due to chest pain. Patient was hospitalized on 10/30/2024 for similar symptoms, and required coronary angiography and was found to have type III SCAD versus myocardial bridging in the mid LAD. Patient was started on aspirin, Plavix, metoprolol, and verapamil for medical treatment, and although some improvement was noted, patient required 2 more coronary angiography's in the next couple of days due to sharp shooting chest pain that resolved. Patient also had pseudoaneurysm repair complication after third catheterization as well as urinary retention that required Costello placement. Patient was discharged with improved chest pain and no more sharp pain episodes on 11/07/2024. Patient states she was supposed to be going to [facility] for PEG tube placement the next daywith her . As they were getting in the car, she started feeling similar chest pain, sharp shooting in nature, 10 out of 10, radiating to her left shoulder, along with diaphoresis, shortness ofbreath, and does not recall it being exacerbated with taking a deep breath. Patient was then taken to [facility] near [place], and was transferred from there to [facility] for appropriate workup of chest pain and continuation of care. TTE on 10/31/2024 shows EF 53% with biplane calculations, and 50 to 55% on estimation with regional WMA basal inferolateral, mid anterior, mid anteroseptal, mid inferoseptal, mid inferolateral and apical lateral left ventricular wall segments. Objective Current Medications[1] Objective: Patient Vitals for the past 24 hrs: BP Temp Temp src Pulse Resp SpO2 Weight 11/12/24 0715 104/52 35.6 ??C (96.1 ??F) Temporal 71 17 100 % -- 11/12/24 0621 104/56 -- -- 91 18 100 % -- 11/12/24 0601 -- -- -- -- -- -- 85.4 kg (188 lb 3.2 oz) 11/12/24 0000 111/69 -- -- 92 15 100 % -- 11/11/24 2224 114/55 -- -- -- -- -- -- 11/11/241999 112/70 36.5 ??C (97.7 ??F) Temporal 73 12 99 % -- 11/11/24 1855 -- -- -- 80 12 100 % -- 11/11/24 1850 107/67 -- -- 84 (!) 8 98 % -- 11/11/24 1845 -- -- -- 85 12 95 % -- 11/11/24 183 -- -- -- 85 13 96 % -- 11/11/24 183 -- -- -- 85 13 97 % -- 11/11/24 1831 -- -- -- 88 13 97 % -- 11/11/24 1830 99/52 -- -- 89 (!) 6 97 % -- 11/11/24 1825 106/59 -- -- 92 15 98 % -- 11/11/24 1600 110/52 -- -- 82 13 99 % -- 11/11/24 1540 -- -- -- 87 20 99 % -- 11/11/24 1535 -- -- -- 91 19 99 % -- 11/11/24 1530 -- -- -- 87 17 100 % -- 11/11/24 1526 111/62 -- -- -- -- -- -- 11/11/24 1525 111/62 36.6 ??C (97.9 ??F) -- 94 (!) 30 99 % -- 11/11/24 1520 -- -- -- 81 26 98 % -- 11/11/24 1245 104/60 36.4 ??C (97.6 ??F) Temporal 72 20 99 % -- 11/11/24 0943 123/63 -- -- 95 -- -- -- 11/11/24 0940 123/63 -- -- 92 15 99 % -- Physical Examination: Physical Exam [...] Judgment normal. Relevant Lab Results Encounter Date: 11/09/24 ECG 12 lead Result Value Ventricular Rate 89 Atrial Rate 89 [place] Interval 142 QRS DURATION 88 QT Interval 392 QTC CALCULATION(BAZETT) 476 P [place] 64 R-[place] 21 T Wave [place] 50 Impression Sinus rhythm with Premature supraventricular complexes Otherwise normal ECG When compared with ECG of 10-NOV-2024 15:02, Premature supraventricular complexes are now Present No results found for: CKTOTAL , CKMB , CKMBINDEX , TROPONINI Limited Echo (TTE) w/wo Limited Doppler, Color Flow, Imaging Agent, Strain, 3D, Bubble Study Result Date: 10/31/2024 1 1 [facility] Heart Station [address] [place] [address] [phone] (fax) Echocardiogram-[facility] Name: JUAN KONG Study Date: 10/31/2024 11:16 AM B/P: 106 mmHg/67 mmHg HR: 70 bpm Date of : 1990 [facility]. Age: 34 year(s) Patient [...] minimal pericardial effusion. Procedure Staff Reading Group: [facility] Jammer Hooker: DAVID Kearney, RDCS Ordering Physician: SARITHA RITTER Wall Motion Scores -1 - hyperkinesia, 0 - not evaluated, 1 - normal, 2 - hypokinesia, 3 - akinesia, 4 - dyskinesia No nuclear medicine results found for the past 12 months Relevant Imaging Results CTA Chest W IV Contrast Narrative: CTA CHEST W IV CONTRAST HISTORY: Chest pain and shortness of breath. COMPARISON: None. TECHNIQUE: Contiguous axial images are obtained of the Chest with 100 mL of Omnipaque 350 IV contrast. Coronal and sagittal reconstructions were performed and reviewed. Sagittal and coronal reformatted images with 3-D Maximum intensity projection reconstructions constructed under concurrent physician supervision on a separate workstation. Automatic exposure control was utilized. All CT scans at this facility use dose modulation, iterative reconstruction, and/or weight based dosing when appropriate to reduce radiation dose to as low as reasonably achievable. FINDINGS: LUNGS/PLEURA: The airways are patent. No pneumothorax or pleural effusion. No focal consolidation. Mild bibasilar dependent atelectasis. HEART/VESSELS/MEDIASTINUM: No cardiomegaly or pericardial effusion. The aorta is nonaneurysmal and without dissection. The pulmonary trunk is non-dilated. No filling defects of the main pulmonary arteries, lobar branches, or segmental branches to suggest emboli. No significant coronary artery calcifications. No enlarged mediastinal or hilar lymph nodes. Right IJ central venous catheter terminates in the right atrium. LOWER NECK AND UPPER ABDOMEN: The visualized thyroid is unremarkable. No acute abnormality within the visualized abdomen. Similar appearance of numerous hypoattenuating hepatic lesions, larger of which represent simple cysts, and smaller of which are too small to characterize. Postoperative changes of the stomach compatible with gastric bypass. MUSCULOSKELETAL: No acute osseous abnormality. Impression: No evidence of pulmonary embolism or other acute intrathoracic process. Approved by:Claus Sams11/11/2024 9:16 PM. I, Rebecca Solano,have reviewed the image(s) and agree with the findings in this report. Electronically signed: Rebecca Solano. ECG 12 lead Sinus rhythm with Premature supraventricular complexes Otherwise normal ECG When compared with ECG of 10-NOV-2024 15:02, Premature supraventricular complexes are now Present ECG 12 lead Normal sinus rhythm Normal ECG When compared with ECG of 10-NOV-2024 07:58, (unconfirmed) No significant change was found Confirmed by Juan SIERRA, JONELLE Harmon ([id number]) on 11/11/2024 12:45:54 PM ECG 12 lead Normal sinus rhythm Normal ECG When compared with ECG of 09-NOV-2024 12:16, No significant change was found Confirmed by Erlin Geller ([id number]) on 11/11/2024 1:19:49 AM ASSESSMENT Concern for pericarditis HST normal. ECG NSR. ESR 20. 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 Since there is good coronary artery blood flow and the SCAD is non-flow limiting, medical therapy is recommended Negative Lexiscan results with 3 TID 1.10 showing no transient ischemic dilation Myocardial bridging of mid LAD Right Groin Hematoma, right groin pseudoaneurysm s/p repair 11/02/24 SCAD type III in mid LAD T2DM Morbid obesity s/p sleeve gastrectomy IBS HTN HLD RICHAR GERD Hypothyroidism Asthma H/O median arcuate ligament syndrome s/p celiac plexus block and MALS release H/O extensive chronic adhesions and recurrent obstructions Gastroparesis s/p daily infusions and J-tube C/B infection and removal Fibromyalgia PLAN Pending CTA coronaries Started on toprol 50 mg daily continue colchicine 0.3 mg every other day due to drug interaction with verapamil and Ranexa Follow up CRP pending Continue Ranexa 500 mg BID Continue verapamil 40 mg q8 Continue aspirin 81 mg and Plavix 75 mg dailya dn crestor 40 mg Closely monitor Hgb Transfuse for hemoglobin < 8 Continue Toprol 25 mg daily and verapamil 40 mg every 8 hours May need to uptitrate verapamil if BP allows Replete electrolytes with K above 4.0, and Mg above 2.0 Rest of care per primary team Cardiology will continue following along This note was, at least in part, completed using a voice clergy member system. Every effort was made to ensure accuracy. However, inadvertent computerized clergy member errors may be present. Gerry Batista MD Internal Medicine Resident, PGY-2 [facility] 8:07 AM 11/12/24 [1] Current Facility-Administered Medications: acetaminophen (Tylenol) tablet 650 mg, 650 mg, oral, q4h PRN, Shanna Lamas DO albuterol 90 mcg/actuation inhaler 2 puff, 2 puff, inhalation, q6h PRN, Shanna Lamas DO aspirin chewable tablet 81 mg, 81 mg, oral, Daily with breakfast, Shanna Lamas DO, 81 mg at 11/11/24 0943 clopidogrel (Plavix) tablet 75 mg, 75 mg, oral, Daily, Shanna Lamas DO, 75 mg at 11/11/24 0943 colchicine split tablet 0.3 mg, 0.3 mg, oral, Every other day, Lisa Pena DO glucose chewable tablet 24 g, 24 g, oral, q15 min PRN OR dextrose 50 % in water (D50W) syringe 25 g, 25 g, intravenous, q15 min PRN, Shanna Lamas DO diphenhydrAMINE (BENADryl) injection 50 mg, 50 mg, intravenous, q6h PRN, Shanna Lamas DO, 50 mg at 11/12/24 0620 docusate sodium (Colace) capsule 100 mg, 100 mg, oral, BID, Debbie Luna, BUREAU DIRECTOR, 100 mg at 11/11/24 2222 escitalopram (Lexapro) tablet 20 mg, 20 mg, oral, Daily, Shanna Lamas DO, 20 mg at 11/11/24 0943 fentaNYL (Duragesic) 12 mcg/hr 1 patch, 1 patch, transdermal, q72h, Shanna Lamas DO, 1 patch at 11/09/24 1505 fentaNYL (Duragesic) 25 mcg/hr 1 patch, 1 patch, transdermal, q72h, Shanna Lamas DO, 1 patch at 11/09/24 1505 hydrocortisone (Cortef) tablet 10 mg, 10 mg, oral, Daily, Shanna Lamas DO, 10 mg at 11/11/24 0943 HYDROmorphone (Dilaudid) injection 0.3 mg, 0.3 mg, intravenous, q4h PRN, Marky Tavares MD, 0.3 mgat 11/12/24 0642 hydrOXYzine HCL (Atarax) tablet 50 mg, 50 mg, oral, Nightly PRN, Shanna Lamas DO insulin lispro (HumaLOG) injection 0-5 Units, 0-5 Units, subcutaneous, q6h TANIA, Marky Tavares MD,1 Units at 11/11/24 1800 kit prep Tc 99m-sestamibi no.1 (Cardiolite) radio-isotope injection 10 millicurie, 10 millicurie, intravenous, Once in imaging, Marky Tavares MD, 10 millicurie at 11/10/24 0945 kit prep Tc 99m-sestamibi no.1 (Cardiolite) radio-isotope injection 30 millicurie, 30 millicurie, intravenous, Once in imaging, Marky Tavares MD, 30 millicurie at 11/10/24 1121 levothyroxine (Synthroid, Levoxyl) tablet 75 mcg, 75 mcg, oral, Daily before breakfast, Shanna Lamas DO, 75 mcg at 11/12/24 0643 liothyronine (Cytomel) tablet 5 mcg, 5 mcg, oral, Daily, Shanna Lamas DO, 5 mcg at 11/11/24 1306 methocarbamol (Robaxin) tablet 750 mg, 750 mg, oral, 4x daily, Shanna Lamas DO, 750 mg at 11/11/24 222 metoclopramide (Reglan) tablet 10 mg, 10 mg, oral, BID PRN, Shanna Lamas DO metoprolol succinate XL (Toprol-XL) 24 hr tablet 50 mg, 50 mg, oral, Daily, Moath Jean, DO mirtazapine (Remeron) tablet 45 mg, 45 mg, oral, Nightly, Shanna Lamas DO, 45 mg at 11/11/242221 naloxone (Narcan) injection 0.4 mg, 0.4 mg, intravenous, PRN, Marky Tavares MD nitroglycerin (Nitrostat) SL tablet 0.4 mg, 0.4 mg, sublingual, q5 min PRN, Demian Wilson MD, 0.4 mg at 11/11/24 182 oxyCODONE (Roxicodone) immediate release tablet 5 mg, 5 mg, oral, q4h PRN, Marky Tavares MD, 5 mgat 11/12/24 0433 pantoprazole (ProtoNix) EC tablet 40 mg, 40 mg, oral, BID AC, Shanna Lamas DO, 40 mg at 11/12/24 0643 polyethylene glycol (Glycolax) packet 17 g, 17 g, oral, Daily, Shanna Lamas DO, 17 g at 11/11/24 09 ranolazine (Ranexa) 12 hr tablet 500 mg, 500 mg, oral, BID, Mocatalina Pena, DO, 500 mg at 11/11/24 222 rosuvastatin (Crestor) tablet 40 mg, 40 mg, oral, Nightly, Shanna Lamas DO, 40 mg at 222 Insert peripheral IV, , , Once AND Saline lock IV, , , Once AND sodium chloride flush 10 mL, 10 mL, intravenous, q8h PRN, Shanna Lamas DO sucralfate (Carafate) tablet 1 g, 1 g, oral, Before meals & nightly, Shanna Lamas, DO, 1 gat 11/12/24 0655 topiramate (Topamax) tablet 100 mg, 100 mg, oral, BID, Shanna Reyesarz, DO, 100 mg at 11/11/24 2222 traZODone (Desyrel) tablet 100 mg, 100 mg, oral, Nightly, Shanna Reyesarz, DO, 100 mg at 222 trimethobenzamide (Tigan) injection 200 mg, 200 mg, intramuscular, q6h PRN, Marky Tavares MD, 200mg at 11/11/24 1851 verapamil (Calan) tablet 40 mg, 40 mg, oral, q8h TANIA, Shanna Lamas, DO, 40 mg at 11/12/24 0644 Cosigned by Jonelle Sierra MD at 11/12/2024 1:47 PM EDT Associated attestation - Jonelle Sierra MD - 11/12/2024 1:47 PM EDT By using the attestations below, the signing clinician agrees that I have read and verify that thedocumentation has been personally reviewed by me and ensure that the documentation accurately reflects the encounter. GC: I personally saw this patient on the day of the encounter with Dr. Wilson and Dr. Batista , performed the paula portion(s) of the service and participated in the management and confirm the resident's documentation. Please note there may be an additional personal documentation from me. * Lisa Pena DO - 11/11/2024 10:32 AM EDT Images from the original note were not included. Cardiology Progress Note Subjective Subjective: 11/11/24 Patient seen and examined at bedside, overnight patient was having chest pain sharp shooting in nature, and had another episode earlier this morning. Patient's pain meds switched from morphine to Dilaudid which helps alleviate the point better for patient's opinion. Starting colchicine decreased dose of 0.3 mg as verapamil and Ranexa have drug interaction with colchicine. 11/10/2024 Patient was seen and examined at bedside, no acute events overnight, vital signs are stable. Statesthat she had severe sharp shooting chest pain this morning for 25 minutes and resolved after receiving morphine 2 mg. Per MAR, patient received morphine 2 mg at 12 AM, 4 AM, and 8 AM. Pending Lexiscan results, and repeat 2 troponins as well as ECG. History: Juan Kong is a 34 y.o. female w/ PMHx significant for HTN, HLD, asthma, RICHAR, hypothyroidism, GERD, IBS, fibromyalgia, T2DM, median arcuate ligament syndrome s/p celiac plexus block and MALS release, morbid obesity s/p sleeve gastrectomy, extensive chronic adhesions and recurrent obstructions, and gastroparesis s/p multiple infusions and J-tube c/b infection and removal who came as a direct admission from [facility] due to chest pain. Patient was hospitalized on 10/30/2024 for similar symptoms, and required coronary angiography and was found to have type III SCAD versus myocardial bridging in the mid LAD. Patient was started on aspirin, Plavix, metoprolol, and verapamil for medical treatment, and although some improvement was noted, patient required 2 more coronary angiography's in the next couple of days due to sharp shooting chest pain that resolved. Patient also had pseudoaneurysm repair complication after third catheterization as well as urinary retention that required Costello placement. Patient was discharged with improved chest pain and no more sharp pain episodes on 11/07/2024. Patient states she was supposed to be going to [facility] for PEG tube placement the next daywith her . As they were getting in the car, she started feeling similar chest pain, sharp shooting in nature, 10 out of 10, radiating to her left shoulder, along with diaphoresis, shortness ofbreath, and does not recall it being exacerbated with taking a deep breath. Patient was then taken to [facility] near [place], and was transferred from there to [facility] for appropriate workup of chest pain and continuation of care. TTE on 10/31/2024 shows EF 53% with biplane calculations, and 50 to 55% on estimation with regional WMA basal inferolateral, mid anterior, mid anteroseptal, mid inferoseptal, mid inferolateral and apical lateral left ventricular wall segments. Objective Current Medications[1] Objective: Patient Vitals for the past 24 hrs: BP Temp Temp src Pulse Resp SpO2 Weight 11/11/24 0943 123/63 -- -- 95 -- -- -- 11/11/24 0658 101/56 -- -- -- -- -- -- 11/11/24 0626 103/59 -- -- 83 11 100 % -- 11/11/24 0331 99/56 -- -- 66 14 99 % -- 11/11/24 0213 -- -- -- -- -- -- 83.3 kg (183 lb 9.6 oz) 11/11/24 0000 98/51 -- -- 72 11 99 % -- 11/10/24 2242 93/61 -- -- -- -- -- -- 11/10/242017 104/62 36 ??C (96.8 ??F) Temporal 78 23 100 % -- 11/10/24 1600 114/57 36.3 ??C (97.3 ??F) Temporal 77 11 100 % -- 11/10/24 1255 112/71 -- -- 78 -- 97 % -- Physical Examination: Physical Exam [...] Judgment normal. Relevant Lab Results Encounter Date: 11/09/24 ECG 12 lead Result Value Ventricular Rate 82 Atrial Rate 82 [place] Interval 142 QRS DURATION 92 QT Interval 408 QTC CALCULATION(BAZETT) 476 P [place] 60 R-[place] 33 T Wave [place] 61 Impression Normal sinus rhythm Normal ECG When compared with ECG of 10-NOV-2024 07:58, (unconfirmed) No significant change was found No results found for: CKTOTAL , CKMB , CKMBINDEX , TROPONINI Limited Echo (TTE) w/wo Limited Doppler, Color Flow, Imaging Agent, Strain, 3D, Bubble Study Result Date: 10/31/2024 1 1 [facility] Heart Station [address] [place] [address] [phone] (fax) Echocardiogram-[facility] Name: JUAN KONG Study Date: 10/31/2024 11:16 AM B/P: 106 mmHg/67 mmHg HR: 70 bpm Date of : 1990 [facility] Age: 34 year(s) Patient [...] minimal pericardial effusion. Procedure Staff Reading Group: [facility] Jammer Hooker: DAVID Kearney, RDCS Ordering Physician: SARITHA RITTER Wall Motion Scores -1 - hyperkinesia, 0 - not evaluated, 1 - normal, 2 - hypokinesia, 3 - akinesia, 4 - dyskinesia No nuclear medicine results found for the past 12 months Relevant Imaging Results ECG 12 lead Normal sinus rhythm Normal ECG When compared with ECG of 09-NOV-2024 12:16, No significant change was found Confirmed by Erlin Geller ([id number]) on 11/11/2024 1:19:49 AM ASSESSMENT Concern for pericarditis NSTEMI secondary to spontaneous coronary artery dissection, type III SCAD EKG shows NSR HR 86, QTc 471, borderline LVH criteria HST trend: 10 Cath on 11/01/2024: Coronary angiogram and IVUS demonstrate focal SCAD (Type 3 SCAD) in the mid LAD versus myocardial bridging. Since there is good coronary artery blood flow and the SCAD is non-flow limiting, medical therapy is recommended Myocardial bridging of mid LAD Right Groin Hematoma, right groin pseudoaneurysm s/p repair 11/02/24 SCAD type III in mid LAD T2DM Morbid obesity s/p sleeve gastrectomy IBS HTN HLD RICHAR GERD Hypothyroidism Asthma H/O median arcuate ligament syndrome s/p celiac plexus block and MALS release H/O extensive chronic adhesions and recurrent obstructions Gastroparesis s/p daily infusions and J-tube C/B infection and removal Fibromyalgia PLAN Start on colchicine 0.3 mg every other day due to drug interaction with verapamil and Ranexa Pending CRP and ESR Pending ECG this morning Negative Lexiscan results with 3 times daily 1.10 showing no transient ischemic dilation Repeat HST at 2 PM and 8 PM Start Ranexa 500 mg BID Continue aspirin 81 mg and Plavix 75 mg daily Closely monitor Hgb Transfuse for hemoglobin < 8 Continue Toprol 25 mg daily and verapamil 40 mg every 8 hours May need to uptitrate verapamil if BP allows Replete electrolytes with K above 4.0, and Mg above 2.0 Rest of care per primary team Cardiology will continue following along This note was, at least in part, completed using a voice clergy member system. Every effort was made to ensure accuracy. However, inadvertent computerized clergy member errors may be present. Lisa Pena DO Internal Medicine Resident, PGY-2 [facility] 10:32 AM 11/11/24 [1] Current Facility-Administered Medications: acetaminophen (Tylenol) tablet 650 mg, 650 mg, oral, q4h PRN, Shanna Lamas DO Adult Cyclic 3-in-1 TPN, 2,300 mL, intravenous, Cyclic TPN, Kaye Craig RD, New Bag at 11/10/24 2231 albuterol 90 mcg/actuation inhaler 2 puff, 2 puff, inhalation, q6h PRN, Shanna Lamas DO aspirin chewable tablet 81 mg, 81 mg, oral, Daily with breakfast, Shanna Lamas DO, 81 mg at 11/11/24 0943 clopidogrel (Plavix) tablet 75 mg, 75 mg, oral, Daily, Shanna Lamas DO, 75 mg at 11/11/24 0943 glucose chewable tablet 24 g, 24 g, oral, q15 min PRN OR dextrose 50 % in water (D50W) syringe 25 g, 25 g, intravenous, q15 min PRN, Shanna Lamas DO diphenhydrAMINE (BENADryl) injection 50 mg, 50 mg, intravenous, q6h PRN, Shanna Lamas DO, 50 mg at 11/11/24 0535 docusate sodium (Colace) capsule 100 mg, 100 mg, oral, BID, Debbie kl, BUREAU DIRECTOR, 100 mg at 11/11/24 0943 escitalopram (Lexapro) tablet 20 mg, 20 mg, oral, Daily, Shanna Lamas DO, 20 mg at 11/11/24 0943 fentaNYL (Duragesic) 12 mcg/hr 1 patch, 1 patch, transdermal, q72h, Shanna Lamas DO, 1 patch at 11/09/24 1505 fentaNYL (Duragesic) 25 mcg/hr 1 patch, 1 patch, transdermal, q72h, Shanna Lamas DO, 1 patch at 11/09/24 1505 hydrocortisone (Cortef) tablet 10 mg, 10 mg, oral, Daily, Shanna Lamas DO, 10 mg at 11/11/24 0943 HYDROmorphone (Dilaudid) injection 0.3 mg, 0.3 mg, intravenous, q4h PRN, Marky Tavares MD, 0.3 mgat 11/11/24 0638 hydrOXYzine HCL (Atarax) tablet 50 mg, 50 mg, oral, Nightly PRN, Shanna Lamas DO insulin lispro (HumaLOG) injection 0-5 Units, 0-5 Units, subcutaneous, q6h TANIA, Marky Tavares MD kit prep Tc 99m-sestamibi no.1 (Cardiolite) radio-isotope injection 10 millicurie, 10 millicurie, intravenous, Once in imaging, Marky Tavares MD, 10 millicurie at 11/10/24 0945 kit prep Tc 99m-sestamibi no.1 (Cardiolite) radio-isotope injection 30 millicurie, 30 millicurie, intravenous, Once in imaging, Marky Tavares MD, 30 millicurie at 11/10/24 1121 levothyroxine (Synthroid, Levoxyl) tablet 75 mcg, 75 mcg, oral, Daily before breakfast, Shanna Lamas DO, 75 mcg at 11/11/24 0657 liothyronine (Cytomel) tablet 5 mcg, 5 mcg, oral, Daily, Shanna Lamas DO, 5 mcg at 11/10/24 1030 methocarbamol (Robaxin) tablet 750 mg, 750 mg, oral, 4x daily, Shanna Lamas DO, 750 mg at 11/11/24 0943 metoclopramide (Reglan) tablet 10 mg, 10 mg, oral, BID PRN, Shanna Lamas DO [START ON 11/12/2024] metoprolol succinate XL (Toprol-XL) 24 hr tablet 50 mg, 50 mg, oral, Daily, Moath Jean, DO mirtazapine (Remeron) tablet 45 mg, 45 mg, oral, Nightly, Shanna Lamas DO, 45 mg at 11/10/242124 naloxone (Narcan) injection 0.4 mg, 0.4 mg, intravenous, PRN, Marky Tavares MD oxyCODONE (Roxicodone) immediate release tablet 5 mg, 5 mg, oral, q4h PRN, Marky Tavares MD, 5 mgat 11/11/24 09 pantoprazole (ProtoNix) EC tablet 40 mg, 40 mg, oral, BID AC, Shanna Lamas DO, 40 mg at 11/11/24656 polyethylene glycol (Glycolax) packet 17 g, 17 g, oral, Daily, Shanna Lamas DO, 17 g at 11/11/24942 ranolazine (Ranexa) 12 hr tablet 500 mg, 500 mg, oral, BID, Lisa Pena DO, 500 mg at 11/11/24942 rosuvastatin (Crestor) tablet 40 mg, 40 mg, oral, Nightly, Shanna Lamas DO, 40 mg at Insert peripheral IV, , , Once AND Saline lock IV, , , Once AND sodium chloride flush 10 mL, 10 mL, intravenous, q8h PRN, Shanna Lamas DO sucralfate (Carafate) tablet 1 g, 1 g, oral, Before meals & nightly, Shanna Lamas DO, 1 gat 11/11/24656 topiramate (Topamax) tablet 100 mg, 100 mg, oral, BID, Shanna Lamas DO, 100 mg at 11/10/242126 traZODone (Desyrel) tablet 100 mg, 100 mg, oral, Nightly, Shanna Lamas DO, 100 mg at verapamil (Calan) tablet 40 mg, 40 mg, oral, q8h TANIA, Shanna Lamas, DO, 40 mg at 11/11/2458 Cosigned by Jonelle Sierra MD at 11/11/2024 1:55 PM EDT Associated attestation - Jonelle Sierra MD - 11/11/2024 1:55 PM EDT By using the attestations below, the signing clinician agrees that I have read and verify that thedocumentation has been personally reviewed by me and ensure that the documentation accurately reflects the encounter. GC: I personally saw this patient on the day of the encounter with Dr. Wilson and Dr. Pena, performed the paula portion(s) of the service and participated in the management and confirm the resident's documentation. Please note there may be an additional personal documentation from me. * Marky Tavares MD - 11/11/2024 10:29 AM EDT Images from the original note were not included. [facility] Medicine Daily Progress Note - 11/11/2024 10:29 AM; Room: [address] [place] [address] Admission: 11/09/2024 10:47 AM; Length of stay: 1 days THE HOSPITALIST TEAM PREFERS TO USE [facility] FOR NON-URGENT COMMUNICATION 7AM- 7PM. IF I DO NOT RESPOND WITHIN 20 MINUTES OR URGENT MATTERS, PLEASE CALL THROUGH THE CLINICAL REVIEW NURSE. FROM 7PM-7AM, PLEASE PAGE [phone](COVR). Code Status: Full Code Barriers to Discharge: CTA coronary artery Expected Discharge Date: 11/13? Discharge Destination: home? Overview Patient is seen for evaluation and management of chest pain. Subjective Patient seen and examined today. She continues to have chest pain. Stress test result reviewed and it had significant artifact, but overall did not appear to be positive. Spoke with cardiology team, they are planning CTA coronary artery. Physical Exam Visit Vitals BP 123/63 Pulse 95 Temp 36 ??C (96.8 ??F) (Temporal) Resp 11 No intake or output data in the 24 hours ending 11/11/24 1029 Physical Exam Vitals reviewed. Constitutional: General: She is not in acute distress. Appearance: She is not ill-appearing or toxic-appearing. HENT: Head: Normocephalic and atraumatic. Mouth/Throat: Mouth: Mucous membranes are moist. Eyes: General: No scleral icterus. Extraocular Movements: Extraocular movements intact. Pupils: Pupils are equal, round, and reactive to light. Cardiovascular: Rate and Rhythm: Normal rate. Pulmonary: Effort: Pulmonary effort is normal. No respiratory distress. Breath sounds: No stridor. Abdominal: General: There is no distension. Palpations: Abdomen is soft. Neurological: Mental Status: She is alert. Cranial Nerves: No cranial nerve deficit. Psychiatric: Mood and Affect: Mood normal. Behavior: Behavior normal. Thought Content: Thought content normal. Judgment: Judgment normal. Estimated body mass index is 29.65 kg/m?? as calculated from the following: Height as of this encounter: 1.676 m (5' 5.98 ). Weight as of this encounter: 83.3 kg (183 lb 9.6 oz). 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 Since there is good coronary artery blood flow and the SCAD is non-flow limiting, medical therapy is recommended - cards following, appreciate recommendations Lexiscan completed, significant artifact, but overall not positive Continue aspirin 81 mg and Plavix 75 mg daily Closely monitor Hgb Transfuse for hemoglobin < 8 Continue Toprol 25 mg daily and verapamil 40 mg every 8 hours May need to uptitrate verapamil if BP allows Pseudoaneurysm of right femoral artery -s/p hematoma evaluation and repair of pseudoaneurysm on 11/02 -stable - follow Hgb with daily CBC Hypothyroidism -resume home meds Gastroparesis Median arcuate ligament syndrome S/P laparoscopic sleeve gastrectomy - currently on TPN and regular diet - consulted dietary for TPN. TPN has been started History of adrenal insufficiency -stable - cont cortef Type 2 diabetes mellitus without complication, without long-term current use of insulin ([facility]) - ISS - Blood glucose is well controlled on 11/11 without significant use of insulin IBS (irritable bowel syndrome) - on prucalopride outpt Chronic pain syndrome -resumed her fentanyl patch. Changed norco to roxicodone - Changed morphine IV to dilaudid IV according to morphine equivalent VTE Prophylaxis: epc Scheduled Meds aspirin, 81 mg, oral, Daily with breakfast clopidogrel, 75 mg, oral, Daily docusate sodium, 100 mg, oral, BID escitalopram, 20 mg, oral, Daily fentaNYL, 1 patch, transdermal, q72h fentaNYL, 1 patch, transdermal, q72h hydrocortisone, 10 mg, oral, Daily insulin lispro, 0-5 Units, subcutaneous, q6h [facility] kit prep Tc 99m-sestamibi no.1, 10 millicurie, intravenous, Once in imaging kit prep Tc 99m-sestamibi no.1, 30 millicurie, intravenous, Once in imaging levothyroxine, 75 mcg, oral, Daily before breakfast liothyronine, 5 mcg, oral, Daily methocarbamol, 750 mg, oral, 4x daily metoprolol succinate XL, 25 mg, oral, Daily mirtazapine, 45 mg, oral, Nightly pantoprazole, 40 mg, oral, BID AC polyethylene glycol, 17 g, oral, Daily ranolazine, 500 mg, oral, BID rosuvastatin, 40 mg, oral, Nightly sucralfate, 1 g, oral, Before meals & nightly topiramate, 100 mg, oral, BID traZODone, 100 mg, oral, Nightly verapamil, 40 mg, oral, q8h [facility] Adult Cyclic 3-in-1 TPN, 2,300 mL Pertinent Investigations Hematology: Results from last 7 days Lab Units 11/11/24 0639 11/09/24 1409 WBC AUTO 10*3/uL 3.76* 5.31 HEMOGLOBIN g/dL 8.8* 9.6* HEMATOCRIT % 26.7* 28.6* MCV fL 90.5 88.8 PLATELETS AUTO 10*3/uL 243 262 Chemistry: Results from last 7 days Lab Units 11/11/24 0639 11/09/24 1409 11/07/24 0450 11/06/24 0550 SODIUM mmol/L 137 138 139 139 POTASSIUM mmol/L 3.7 3.9 3.9 3.9 CHLORIDE mmol/L 104 105 105 105 CO2 mmol/L 27 27 28 27 BUN mg/dL 13 14 14 12 CREATININE mg/dL 0.68 0.57* 0.52* 0.61 GLUCOSE mg/dL 117* 100 87 85 MAGNESIUM mg/dL -- 2.0 2.1 1.9 CALCIUM mg/dL 8.3* 8.3* 8.3* 8.4* PHOSPHORUS mg/dL -- -- 4.7 4.7 No lab exists for component: AFIO2 , APHT , APCOT , APOT , ATCO2 , CK , ALB , IBILI Results from last 7 days Lab Units 11/11/24 0635 11/11/24 0055 11/10/24 1824 11/10/24 1306 11/10/24 0739 11/09/24 2121 POCT GLUCOSE mg/dL 125* 138* 122* 115* 108* 112* Historical Values: (Includes values prior to this admission) Lab Results Component Value Date TSH 3.46 10/30/2024 HDL 43 10/31/2024 LDL 73 10/31/2024 No results found for: [id number] , IRON , TIBC , C3 , C4 , MISAEL , CANCA , ASO , PSA , CEA , CA125 , CA199 , AFP , CA153 Imaging ECG 12 lead Normal sinus rhythm Normal ECG When compared with ECG of 09-NOV-2024 12:16, No significant change was found Confirmed by Erlin Geller ([id number]) on 11/11/2024 1:19:49 AM Discharge Planning Expected Discharge Disposition: Home-Health Care [facility] (06) Signed Marky Tavares MD [facility] Medicine 11/11/2024 10:29 AM * Marky Tavares MD - 11/10/2024 4:13 PM EDT Images from the original note were not included. [facility] Medicine Daily Progress Note - 11/10/2024 4:13 PM; Room: [address] [place] [address] Admission: 11/09/2024 10:47 AM; Length of stay: 1 days THE HOSPITALIST TEAM PREFERS TO USE [employer] CHAT FOR NON-URGENT COMMUNICATION 7AM- 7PM. IF I DO NOT RESPOND WITHIN 20 MINUTES OR URGENT MATTERS, PLEASE CALL THROUGH THE CLINICAL REVIEW NURSE. FROM 7PM-7AM, PLEASE PAGE [phone](COVR). Code Status: Full Code Barriers to Discharge: lexiscan stress test Expected Discharge Date: 11/13? Discharge Destination: home? Overview Patient is seen for evaluation and management of chest pain. Subjective Patient seen and examined in the morning. She was resting in bed. She has a complex cardiac historyand had prolonged hospital stay due to spontaneous coronary artery dissection when she was at [facility] recently. She presented to outside facility with chest pain and was transferred. Stress test was ordered. Lexiscan stress test has been completed, pending result. This morning, she was not in any acute distress. She denied chest pain when seen. Physical Exam Visit Vitals BP 114/57 Pulse 77 Temp 36.3 ??C (97.3 ??F) (Temporal) Resp 11 No intake or output data in the 24 hours ending 11/10/24 1613 Physical Exam Vitals reviewed. Constitutional: General: She is not in acute distress. Appearance: She is not ill-appearing or toxic-appearing. HENT: Head: Normocephalic and atraumatic. Mouth/Throat: Mouth: Mucous membranes are moist. Eyes: General: No scleral icterus. Extraocular Movements: Extraocular movements intact. Pupils: Pupils are equal, round, and reactive to light. Cardiovascular: Rate and Rhythm: Normal rate. Pulmonary: Effort: Pulmonary effort is normal. No respiratory distress. Breath sounds: No stridor. Abdominal: General: There is no distension. Palpations: Abdomen is soft. Neurological: Mental Status: She is alert. Cranial Nerves: No cranial nerve deficit. Psychiatric: Mood and Affect: Mood normal. Behavior: Behavior normal. Thought Content: Thought content normal. Judgment: Judgment normal. Estimated body mass index is 29.52 kg/m?? as calculated from the following: Height as of this encounter: 1.676 m (5' 5.98 ). Weight as of this encounter: 82.9 kg (182 lb 12.8 oz). 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 Since there is good coronary artery blood flow and the SCAD is non-flow limiting, medical therapy is recommended - cards following, appreciate recommendations Lexiscan completed, pending result Continue aspirin 81 mg and Plavix 75 mg daily Closely monitor Hgb Transfuse for hemoglobin < 8 Continue Toprol 25 mg daily and verapamil 40 mg every 8 hours May need to uptitrate verapamil if BP allows Pseudoaneurysm of right femoral artery -s/p hematoma evaluation and repair of pseudoaneurysm on 11/02 -stable - follow Hgb with daily CBC Hypothyroidism -resume home meds Gastroparesis Median arcuate ligament syndrome S/P laparoscopic sleeve gastrectomy - currently on TPN and regular diet - consulted dietary for TPN History of adrenal insufficiency -stable - cont cortef Type 2 diabetes mellitus without complication, without long-term current use of insulin (CMS/HCC) - ISS - Blood glucose is well controlled without significant use of insulin IBS (irritable bowel syndrome) - on prucalopride outpt Chronic pain syndrome -resumed her fentanyl patch. Changed norco to roxicodone VTE Prophylaxis: epc Scheduled Meds aspirin, 81 mg, oral, Daily with breakfast clopidogrel, 75 mg, oral, Daily docusate sodium, 100 mg, oral, BID enoxaparin, 40 mg, subcutaneous, q24h TANIA escitalopram, 20 mg, oral, Daily fentaNYL, 1 patch, transdermal, q72h fentaNYL, 1 patch, transdermal, q72h hydrocortisone, 10 mg, oral, Daily [START ON 11/11/2024] insulin lispro, 0-5 Units, subcutaneous, q6h TANIA kit prep Tc 99m-sestamibi no.1, 10 millicurie, intravenous, Once in imaging kit prep Tc 99m-sestamibi no.1, 30 millicurie, intravenous, Once in imaging levothyroxine, 75 mcg, oral, Daily before breakfast liothyronine, 5 mcg, oral, Daily methocarbamol, 750 mg, oral, 4x daily metoprolol succinate XL, 25 mg, oral, Daily mirtazapine, 45 mg, oral, Nightly pantoprazole, 40 mg, oral, BID AC polyethylene glycol, 17 g, oral, Daily ranolazine, 500 mg, oral, BID rosuvastatin, 40 mg, oral, Nightly sucralfate, 1 g, oral, Before meals & nightly topiramate, 100 mg, oral, BID traZODone, 100 mg, oral, Nightly verapamil, 40 mg, oral, q8h [facility] Adult Cyclic 3-in-1 TPN, 2,300 mL Pertinent Investigations Hematology: Results from last 7 days Lab Units 11/09/24 1409 11/07/24 0627 WBC AUTO 10*3/uL 5.31 4.21 HEMOGLOBIN g/dL 9.6* 9.0* HEMATOCRIT % 28.6* 26.9* MCV fL 88.8 89.4 PLATELETS AUTO 10*3/uL 262 206 Chemistry: Results from last 7 days Lab Units 11/09/24 1409 11/07/24 0450 11/06/24 0550 SODIUM mmol/L 138 139 139 POTASSIUM mmol/L 3.9 3.9 3.9 CHLORIDE mmol/L 105 105 105 CO2 mmol/L 27 28 27 BUN mg/dL 14 14 12 CREATININE mg/dL 0.57* 0.52* 0.61 GLUCOSE mg/dL 100 87 85 MAGNESIUM mg/dL 2.0 2.1 1.9 CALCIUM mg/dL 8.3* 8.3* 8.4* PHOSPHORUS mg/dL -- 4.7 4.7 No lab exists for component: AFIO2 , APHT , APCOT , APOT , ATCO2 , CK , ALB , IBILI Results from last 7 days Lab Units 11/10/24 1306 11/10/24 0739 11/09/24 2121 11/09/24 1612 11/07/24 1600 11/07/24 1155 POCT GLUCOSE mg/dL 115* 108* 112* 205* 106* 121* Historical Values: (Includes values prior to this admission) Lab Results Component Value Date TSH 3.46 10/30/2024 HDL 43 10/31/2024 LDL 73 10/31/2024 No results found for: KCAADDAD47 , IRON , TIBC , C3 , C4 , MISAEL , CANCA , ASO , PSA , CEA , CA125 , CA199 , AFP , CA153 Imaging ECG 12 lead Normal sinus rhythm Normal ECG When compared with ECG of 10-NOV-2024 07:58, (unconfirmed) No significant change was found Vasc Us Lower Extremity Pseudoaneurysm Duplex Right [...] femoral and proximal femoral vein compressed and p resented with phasic spectral Doppler signals. Conclusions: No evidence of pseudoaneurysm right groin. Normal right arterial segments and vein XR chest 1 view Narrative: CHEST 1 VIEW HISTORY: Central line positioning COMPARISON: 08/18/2024 Impression: * Stable right central venous catheter with tip projecting over the lower SVC. * Lungs and pleural spaces are clear. Electronically signed: Willis Simons MD. ECG 12 lead Normal sinus rhythm Normal ECG When compared with ECG of 09-NOV-2024 12:16, No significant change was found Discharge Planning Signed Marky Tavares MD Hospital Medicine 11/10/2024 4:13 PM * Kaye Craig RD - 11/10/2024 11:55 AM EDT Adult Nutrition Assessment: Name: Juan Kong [...] Current Medications: aspirin, 81 mg, oral, Daily with breakfast clopidogrel, 75 mg, oral, Daily docusate sodium, 100 mg, oral, BID enoxaparin, 40 mg, subcutaneous, q24h TANIA escitalopram, 20 mg, oral, Daily fentaNYL, 1 patch, transdermal, q72h fentaNYL, 1 patch, transdermal, q72h hydrocortisone, 10 mg, oral, Daily insulin lispro, 0-5 Units, subcutaneous, TID with meals And insulin lispro, 0-4 Units, subcutaneous, Nightly kit prep Tc 99m-sestamibi no.1, 10 millicurie, intravenous, Once in imaging kit prep Tc 99m-sestamibi no.1, 30 millicurie, intravenous, Once in imaging levothyroxine, 75 mcg, oral, Daily before breakfast liothyronine, 5 mcg, oral, Daily methocarbamol, 750 mg, oral, 4x daily metoprolol succinate XL, 25 mg, oral, Daily mirtazapine, 45 mg, oral, Nightly pantoprazole, 40 mg, oral, BID AC polyethylene glycol, 17 g, oral, Daily ranolazine, 500 mg, oral, BID rosuvastatin, 40 mg, oral, Nightly sucralfate, 1 g, oral, Before meals & nightly topiramate, 100 mg, oral, BID traZODone, 100 mg, oral, Nightly verapamil, 40 mg, oral, q8h TANIA Adult Cyclic 3-in-1 TPN, 2,300 mL Labs: 0 Lab Value Date/Time POCGLU 108 (H) 11/10/2024 0739 BUN 14 11/09/2024 1409 CREATININE 0.57 (L) 11/09/2024 1409 NA 138 11/09/2024 1409 K 3.9 11/09/2024 1409 PHOS 4.7 11/07/2024 0450 MG 2.0 11/09/2024 1409 HGBA1C 4.5 10/31/2024 0627 HGB 9.6 (L) 11/09/2024 1409 WBC 5.31 11/09/2024 1409 CHOL 116 (L) 10/31/2024 0627 HDL 43 10/31/2024 0627 Cl 105 CO2 27 Alk Phos 45, AST/ALT 19/7, Tbili 0.2 (10/30/24) TG 84 (10/31/24) Manganese 5.2, Copper 107, Zinc 55 (10/09/24) Vit D 25.8 (08/15/24) Allergen Reactions Codeine Nausea And Vomiting Nsaids (Non-Steroidal Anti-Inflammatory Drug) GI intolerance Adhesive Rash Nutrition Problems: Swallowing Assessment: pt denies swallowing difficulty Mouth: pt denies chewing difficulty Abdominal Assessment: Last recorded BM 11/09/24, h/o IBS, alternating c/d Colace BID & Miralax daily Nausea PRN antiemetics EGD (09/29/24) no endoscopic esophageal abnormality, esophagus dilated, Isabel en Y gastrojejunostomy with gastrojejunal anastamosis characterized by healthy mucosa Vascular US mesenteric artery duplex (10/06/24) SMA no stenosis & KEELY widely patent I/O: Urine output: unmeasured occurrence x1 Cognition: AO Feeding Skills: independent Skin Integrity: R upper leg, groin Other Factors: s/p cardiac cath 11/01/24, type II SCAD Psuedoaneurysmal complication, s/p repair by vascular surgery 11/02/24 Readmitted with aaron WONG stress test today Nutrition Data/Clinical Indicators of Nutrition Status: Height: [...] wt within range of UBW Nutrition Assessment: Pt was discharged home on 11/07/24. She was travelling to [facility] for JT placement when symptoms started. She was readmitted to 11/09/24. She reports last TPN was administered per home schedule on 11/08/24.There have been no changes to regimen or nutrition history. NPO for testing. HPN 3 days per week (MWF) via [facility]. Managed by [facility]. Supplemental IVF. PO diet regular as tolerated. Intakes variable. Norton, small meals. ONS. Dextrose 200 g AA 90 g IVFE 20% 50 g Volume 2300 ml Na acetate 85 meq K acetate 85 meq Na Phos 30 mmol Mg sulfate 24 meq Ca gluconate 10 meq MVI & MTE Cu 0.2 mg Zn 3 mg Administered over 16 hr, no taper up, 3 hr taper down Nutrition Risk: High Nutrition Needs: Needs based on: ideal body weight (59.3 kg) Calorie needs: 9231-7887 kcals/day based on 25-30 kcal/kg Protein needs: [...] of Nutrition and Dietetics (AND) and the [place] [employer] Enteral and Parenteral Nutrition (ASPEN). Treatment Plan: TPN tonight, no change to home order Check Phosphorus Resume Regular diet post procedure Order snacks & ONS [same as last admission] per pt request Goals: Weight maintenance Maintain visceral protein Nutrition-related labs (magnesium, phosphorus, BMP) wnl To reach the Clinical Dietitian, please utilize [employer] chat Wednesday-Wednesday from 8AM-4PM or call extension [phone]. For weekends (Wednesday-Wednesday) and holidays, the Clinical Dietitian can be reached via pager ([phone]) from 9AM-3PM. The Clinical Nutrition Department is unable to respond to [employer] chat messages on Sundays and hols. * Lisa Pena DO - 11/10/2024 8:43 AM EDT Images from the original note were not included. Cardiology Progress Note Subjective Subjective: 11/10/2024 Patient was seen and examined at bedside, no acute events overnight, vital signs are stable. Statesthat she had severe sharp shooting chest pain this morning for 25 minutes and resolved after receiving morphine 2 mg. Per APR, patient received morphine 2 mg at 12 AM, 4 AM, and 8 AM. Pending Lexiscan results, and repeat 2 troponins as well as ECG. History: Juan Kong is a 34 y.o. female w/ PMHx significant for HTN, HLD, asthma, RICHAR, hypothyroidism, GERD, IBS, fibromyalgia, T2DM, median arcuate ligament syndrome s/p celiac plexus block and MALS release, morbid obesity s/p sleeve gastrectomy, extensive chronic adhesions and recurrent obstructions, and gastroparesis s/p multiple infusions and J-tube c/b infection and removal who came as a direct admission from [facility] due to chest pain. Patient was hospitalized on 10/30/2024 for similar symptoms, and required coronary angiography and was found to have type III SCAD versus myocardial bridging in the mid LAD. Patient was started on aspirin, Plavix, metoprolol, and verapamil for medical treatment, and although some improvement was noted, patient required 2 more coronary angiography's in the next couple of days due to sharp shooting chest pain that resolved. Patient also had pseudoaneurysm repair complication after third catheterization as well as urinary retention that required Costello placement. Patient was discharged with improved chest pain and no more sharp pain episodes on 11/07/2024. Patient states she was supposed to be going to [facility] for PEG tube placement the next daywith her . As they were getting in the car, she started feeling similar chest pain, sharp shooting in nature, 10 out of 10, radiating to her left shoulder, along with diaphoresis, shortness ofbreath, and does not recall it being exacerbated with taking a deep breath. Patient was then taken to [facility] near [place], and was transferred from there to [facility] for appropriate workup of chest pain and continuation of care. TTE on 10/31/2024 shows EF 53% with biplane calculations, and 50 to 55% on estimation with regional WMA basal inferolateral, mid anterior, mid anteroseptal, mid inferoseptal, mid inferolateral and apical lateral left ventricular wall segments. Objective Current Medications[1] Objective: Patient Vitals for the past 24 hrs: BP Temp Temp src Pulse Resp SpO2 Height Weight 11/10/24 0834 104/65 -- -- 76 13 100 % -- -- 11/10/24 0800 100/63 36.2 ??C (97.2 ??F) Temporal 74 10 98 % -- -- 11/10/24 0613 105/84 -- -- -- -- -- -- -- 11/10/24 0500 -- -- -- -- -- -- -- 82.9 kg (182 lb 12.8 oz) 11/09/248 110/68 -- -- -- -- -- -- -- 11/09/24 2000 109/72 36.6 ??C (97.9 ??F) Temporal 87 20 100 % -- -- 11/09/24 1300 114/66 -- -- 89 16 100 % -- -- 11/09/24 1100 122/74 36.7 ??C (98 ??F) Temporal 86 14 100 % 1.676 m (5' 5.98 ) 83 kg (183 lb) Physical Examination: Physical Exam Constitutional: General: She [...] Judgment normal. Relevant Lab Results Encounter Date: 11/09/24 ECG 12 lead Result Value Ventricular Rate 69 Atrial Rate 69 [place] Interval 152 QRS DURATION 96 QT Interval 436 QTC CALCULATION(BAZETT) 467 P [place] 59 R-[place] 47 T Wave [place] 45 Impression Normal sinus rhythm Normal ECG When compared with ECG of 09-NOV-2024 12:16, No significant change was found No results found for: CKTOTAL , CKMB , CKMBINDEX , TROPONINI Limited Echo (TTE) w/wo Limited Doppler, Color Flow, Imaging Agent, Strain, 3D, Bubble Study Result Date: 10/31/2024 1 1 [facility] Heart Station [address] [place] [address] [phone] (fax) Echocardiogram-[facility] Name: JUAN KONG Study Date: 10/31/2024 11:16 AM B/P: 106 mmHg/67 mmHg HR: 70 bpm Date of : 1990 [facility]. Age: 34 year(s) Patient Room: [facility] Weight: 181 lb. Gender: Female [...] minimal pericardial effusion. Procedure Staff Reading Group: [facility] Jammer Hooker: Raegan Cardona, BS, RDCS Ordering Physician: SARITHA RITTER Wall Motion Scores -1 - hyperkinesia, 0 - not evaluated, 1 - normal, 2 - hypokinesia, 3 - akinesia, 4 - dyskinesia No nuclear medicine results found for the past 12 months Relevant Imaging Results ECG 12 lead Normal sinus rhythm Normal ECG When compared with ECG of 09-NOV-2024 12:16, No significant change was found 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, type III SCAD EKG shows NSR HR 86, QTc 471, borderline LVH criteria HST trend: 10 Cath on 11/01/2024: Coronary angiogram and IVUS demonstrate focal SCAD (Type 3 SCAD) in the mid LAD versus myocardial bridging. Since there is good coronary artery blood flow and the SCAD is non-flow limiting, medical therapy is recommended Myocardial bridging of mid LAD Right Groin Hematoma, right groin pseudoaneurysm s/p repair 11/02/24 SCAD type III in mid LAD T2DM Morbid obesity s/p sleeve gastrectomy IBS HTN HLD RICHAR GERD Hypothyroidism Asthma H/O median arcuate ligament syndrome s/p celiac plexus block and MALS release H/O extensive chronic adhesions and recurrent obstructions Gastroparesis s/p daily infusions and J-tube C/B infection and removal Fibromyalgia PLAN Pending Lexiscan results to assess for ischemic evaluation. Further recommendations to follow. Pending ECG this morning Repeat HST at 2 PM and 8 PM Start Ranexa 500 mg BID Continue aspirin 81 mg and Plavix 75 mg daily Closely monitor Hgb Transfuse for hemoglobin < 8 Continue Toprol 25 mg daily and verapamil 40 mg every 8 hours May need to uptitrate verapamil if BP allows Replete electrolytes with K above 4.0, and Mg above 2.0 Rest of care per primary team Cardiology will continue following along This note was, at least in part, completed using a voice clergy member system. Every effort was made to ensure accuracy. However, inadvertent computerized clergy member errors may be present. Lisa Pena DO Internal Medicine Resident, PGY-2 [facility] 8:43 AM 11/10/24 [1] Current Facility-Administered Medications: acetaminophen (Tylenol) tablet 650 mg, 650 mg, oral, q4h PRN, Shanna Lamas DO albuterol 90 mcg/actuation inhaler 2 puff, 2 puff, inhalation, q6h PRN, Shanna Lamas DO aspirin chewable tablet 81 mg, 81 mg, oral, Daily with breakfast, Shanna Lamas DO, 81 mg at 11/10/24 0740 clopidogrel (Plavix) tablet 75 mg, 75 mg, oral, Daily, Shanna Lamas DO, 75 mg at 11/09/24 1312 glucose chewable tablet 24 g, 24 g, oral, q15 min PRN OR dextrose 50 % in water (D50W) syringe 25 g, 25 g, intravenous, q15 min PRN, Shanna Lamas DO diphenhydrAMINE (BENADryl) injection 50 mg, 50 mg, intravenous, q6h PRN, Shanna Lamas DO, 50 mg at 11/10/24 0812 docusate sodium (Colace) capsule 100 mg, 100 mg, oral, BID, Debbie Luna, BUREAU DIRECTOR, 100 mg at 11/09/24 2204 enoxaparin (Lovenox) syringe 40 mg, 40 mg, subcutaneous, q24h TANIA, Shanna Lamas DO, 40 mg at 11/09/24 1504 escitalopram (Lexapro) tablet 20 mg, 20 mg, oral, Daily, Shanna Lamas DO, 20 mg at 11/09/24 1312 fentaNYL (Duragesic) 12 mcg/hr 1 patch, 1 patch, transdermal, q72h, Shanna Lamas DO, 1 patch at 11/09/24 1505 fentaNYL (Duragesic) 25 mcg/hr 1 patch, 1 patch, transdermal, q72h, Shanna Lamas DO, 1 patch at 11/09/24 1505 HYDROcodone-acetaminophen (Laverne) 5-325 mg per tablet 2 tablet, 2 tablet, oral, q4h PRN, Shanna Lamas DO, 2 tablet at 11/10/24 0613 hydrocortisone (Cortef) tablet 10 mg, 10 mg, oral, Daily, Shanna Lamas DO, 10 mg at 11/09/24 1312 hydrOXYzine HCL (Atarax) tablet 50 mg, 50 mg, oral, Nightly PRN, Shanna Lamas DO insulin lispro (HumaLOG) injection 0-5 Units, 0-5 Units, subcutaneous, TID with meals, 2 Units at 11/09/24 1721 AND insulin lispro (HumaLOG) injection 0-4 Units, 0-4 Units, subcutaneous, Nightly,Shanna Lamas DO levothyroxine (Synthroid, Levoxyl) tablet 75 mcg, 75 mcg, oral, Daily before breakfast, Shanna Lamas, DO, 75 mcg at 11/10/24 0739 liothyronine (Cytomel) tablet 5 mcg, 5 mcg, oral, Daily, Shanna Lamas, DO, 5 mcg at 11/09/24 1312 methocarbamol (Robaxin) tablet 750 mg, 750 mg, oral, 4x daily, Shanna Lamas, DO, 750 mg at 11/09/242124 metoclopramide (Reglan) tablet 10 mg, 10 mg, oral, BID PRN, Shanna Lamas DO metoprolol succinate XL (Toprol-XL) 24 hr tablet 25 mg, 25 mg, oral, Daily, Shanna Lamas DO, 25 mg at 11/09/24 131 mirtazapine (Remeron) tablet 45 mg, 45 mg, oral, Nightly, Shanna Reyesarz, DO, 45 mg at 11/09/242124 morphine injection 2 mg, 2 mg, intravenous, q4h PRN, Debbie Luna CNP, 2 mg at 11/10/24 08 pantoprazole (ProtoNix) EC tablet 40 mg, 40 mg, oral, BID AC, Shanna Reyesarz, DO, 40 mg at 11/10/24 0613 polyethylene glycol (Glycolax) packet 17 g, 17 g, oral, Daily, Shanna Reyesarz, DO, 17 g at 11/09/24 1503 ranolazine (Ranexa) 12 hr tablet 500 mg, 500 mg, oral, BID, Moath Elhady, DO, 500 mg at 11/09/242124 regadenoson (Lexiscan) injection 0.4 mg, 0.4 mg, intravenous, Once, Vicky Cole CNP rosuvastatin (Crestor) tablet 40 mg, 40 mg, oral, Nightly, Shanna Adams, DO, 40 mg at Insert peripheral IV, , , Once AND Saline lock IV, , , Once AND sodium chloride flush 10 mL, 10 mL, intravenous, q8h PRN, Shanna Lamas DO sucralfate (Carafate) tablet 1 g, 1 g, oral, Before meals & nightly, Shanna Lamas DO, 1 gat 11/10/24 06 topiramate (Topamax) tablet 100 mg, 100 mg, oral, BID, Shanna Lamas DO, 100 mg at 11/09/242124 traMADol (Ultram) tablet 50 mg, 50 mg, oral, q6h PRN, Shanna Lamas DO, 50 mg at 11/09/24 165 traZODone (Desyrel) tablet 100 mg, 100 mg, oral, Nightly, Shanna Lamas DO, 100 mg at 125 verapamil (Calan) tablet 40 mg, 40 mg, oral, q8h TANIA, Shanna Lamas DO, 40 mg at 11/10/24 06 Cosigned by Bacilio Conway MD at 11/10/2024 5:23 PM EDT Associated attestation - Bacilio Conway MD - 11/10/2024 5:23 PM EDT 11/10/24 By using the attestations below, the signing [...] follows: Patient seen and examined at bedside, has an overall challenging presentation with SCAD. At this point of time, we are not entirely certain in terms of any potential interventional therapies that could be of value to her. For now, we will focus on aggressive pain control with combinationof several pain medications as outlined by our colleagues in internal medicine. I have also encouraged her to do further research and seek additional opinions to better seek pain control in the context of SCAD Bacilio Conway MD, ScM, MSc Cardiac Contract Paralegal Email: [email or web address] documented in this encounter H&P Notes * Shanna Lamas, DO - 11/09/2024 1:32 PM EDT Images from the original note were not included. Hospital Medicine History and Physical 11/09/2024 1:32 PM THE HOSPITALIST TEAM PREFERS TO USE [employer] CHAT FOR NON-URGENT COMMUNICATION 7AM- 7PM. IF I DO NOT RESPOND WITHIN 20 MINUTES OR URGENT MATTERS, PLEASE CALL THROUGH THE CLINICAL REVIEW NURSE. FROM 7PM-7AM, PLEASE PAGE [phone](COVR). Chief Complaint No chief complaint on file. History of Present Illness Juan Kong is an 34 y.o. female who came from home after a prolonged hospital stay. Her history is significant for HTN, HLD, asthma, RICHAR, hypothyroidism, GERD, IBS, fibromyalgia, T2DM, median arcuate ligament syndrome s/p celiac plexus block and MALS release, morbid obesity s/p sleeve gastrectomy, extensive chronic adhesions and recurrent obstructions, and gastroparesis s/p multiple infusions and J-tube c/b infection and removal who came as a direct admission from [facility] due to chest pain. Patient was hospitalized on 10/30/2024 for similar symptoms, and required coronary angiography and was found to have type III SCAD versus myocardial bridging in the mid LAD. Patient was started on aspirin, Plavix, metoprolol, and verapamil for medical treatment, and although some improvement was noted, patient required 2 more coronary angiography's in the next couple of days due to sharp shooting chest pain that resolved. Patient also had pseudoaneurysm repair complication after third catheterization as well as urinary retention that required Costello placement. Patient was discharged with improved chest pain and no more sharp pain episodes on 11/07/2024. Patient states she was supposed to be going to [facility] for PEG tube placement the next daywith her . As they were getting in the car, she started feeling similar chest pain, sharp shooting in nature, 10 out of 10, radiating to her left shoulder, along with diaphoresis, shortness ofbreath, and does not recall it being exacerbated with taking a deep breath. Patient was then taken to [facility] near [place], and was transferred from there to [facility] for appropriate workup of chest pain and continuation of care. Patient went to the ER yesterday and cardiology did talk with the ER and agreed to transfer. Patient did not have EMS until today. She did not have any labs drawn this AM. She reports she still had intermittent chest pain last evening and two episodes on the ambulance this AM. Review of System and Physical Exam Temp: [36.7 ??C (98 ??F)] 36.7 ??C (98 ??F) Heart Rate: [86] 86 Resp: [14] 14 BP: (122)/(74) 122/74 Physical Exam Constitutional: Appearance: Normal appearance. HENT: Head: Normocephalic. Mouth/Throat: Mouth: Mucous membranes are moist. Eyes: Extraocular Movements: Extraocular movements intact. Pupils: Pupils are equal, round, and reactive to light. Neck: Comments: hodges Cardiovascular: Rate and Rhythm: Normal rate and regular rhythm. Pulmonary: Effort: Pulmonary effort is normal. Breath sounds: Normal breath sounds. Abdominal: General: Abdomen is flat. Bowel sounds are normal. Palpations: Abdomen is soft. Musculoskeletal: General: Normal range of motion. Skin: General: Skin is warm and dry. Comments: Right groin - hematoma noted Neurological: General: No focal deficit present. Mental Status: She is alert and oriented to person, place, and time. Psychiatric: Mood and Affect: Mood normal. Review of Systems Constitutional: Negative. HENT: Negative. Eyes: Negative. Respiratory: Positive for chest tightness. Cardiovascular: Positive for chest pain. Gastrointestinal: Negative. Endocrine: Negative. Genitourinary: Negative. Musculoskeletal: Negative. Skin: Negative. Allergic/Immunologic: Negative. Neurological: Negative. 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 Since there is good coronary artery blood flow and the SCAD is non-flow limiting, medical therapy is recommended - cards consulted Lexiscan tomorrow to assess for ischemic evaluation Continue aspirin 81 mg and Plavix 75 mg daily Closely monitor Hgb Transfuse for hemoglobin < 8 Continue Toprol 25 mg daily and verapamil 40 mg every 8 hours May need to uptitrate verapamil if BP allows Pseudoaneurysm of right femoral artery -s/p hematoma evaluation and repair of pseudoaneurysm 11/02 -stable - follow Hgb Hypothyroidism -resume home meds Gastroparesis Median arcuate ligament syndrome S/P laparoscopic sleeve gastrectomy - currently on TPN and regular diet - consulted dietary for TPN History of adrenal insufficiency -stable - cont cortef Type 2 diabetes mellitus without complication, without long-term current use of insulin ([facility]) - ISS IBS (irritable bowel syndrome) - on prucalopride outpt Chronic pain syndrome -resumed her fentanyl patch and orco VTE Prophylaxis: Per vascular notes was OK with DVT prophylaxis ----- Focus of this inpatient stay will [...] this hospital stay by a member of [facility]. Past Medical History Medical [...] Not Currently Drug use: Never Sexual activity: Defer Other Topics Concern Not on file Social History Narrative Not on file Social Drivers of Health Financial Resource Strain: Low Risk (11/09/2024) Overall Financial Resource Strain (CARDIA) Difficulty of Paying Living Expenses: Not hard at all Food Insecurity: No Food Insecurity (11/09/2024) Hunger Vital Sign Worried About Running Out of Food in the Last Year: Never true Ran Out of Food in the Last Year: Not on file Transportation Needs: No Transportation Needs (11/09/2024) Transportation Lack of Transportation (Medical): No Lack of Transportation (Non-Medical): Not on file Physical Activity: Insufficiently Active (06/30/2023) Received from [facility] Exercise Vital Sign Days of Exercise per Week: 3 days Minutes of Exercise per Session: 10 min Stress: Stress Concern Present (06/30/2023) Received from [facility] [place] of Occupational Health - Occupational Stress Questionnaire Feeling of Stress : Rather much Social Connections: Moderately Integrated (06/30/2023) Received from [facility] Social Connection and Isolation Panel [NHANES] Frequency of Communication with Friends and Family: Twice a week Frequency of Social Gatherings with Friends and Family: Twice a week Attends Hoahaoism Services: More than 4 times per year Active Member of Clubs or Organizations: No Attends Club or Organization Meetings: Never Marital Status: Intimate Partner Violence: Unknown (11/09/2024) Humiliation, Afraid, Rape, and Kick questionnaire Fear of Current or Ex-Partner: No Emotionally Abused: Not on file Physically Abused: Not on file Sexually Abused: Not on file Housing Stability: Low Risk (11/09/2024) Housing Stability Vital Sign Unable to Pay for Housing in the Last Year: No Number of Times Moved in the Last Year: 0 Homeless in the Last Year: No Family History family history includes No Known Problems in her father and mother. Allergies is allergic to codeine, nsaids (non-steroidal anti-inflammatory drug), and adhesive. Prior to Admission Medications Prescriptions Prior to Admission[3] Labs Labs Reviewed HIGH SENSITIVITY TROPONIN I BASIC METABOLIC PANEL CBC AND DIFFERENTIAL Narrative: The following orders were created for panel order CBC and differential. Procedure Abnormality Status --------- ------ CBC auto differential[[id number]] Please view results for these tests on the individual orders. MAGNESIUM CBC WITH AUTO DIFFERENTIAL Imaging ECG 12 lead Normal sinus rhythm Minimal voltage criteria for LVH, may be normal variant ( [place] product ) Borderline ECG When compared with ECG of 07-NOV-2024 11:33, No significant change was found Signed Shanna Lamas [facility] 11/09/2024 1:32 PM [1] Past Medical History: Diagnosis Date Gastroparesis [2] Past Surgical History: Procedure Laterality Date ABDOMINAL SURGERY [3] Medications Prior to Admission Medication Sig Dispense Refill Last Dose/Taking acetaminophen (Tylenol) 325 mg tablet Take 650 mg by mouth every 4 (four) hours if needed for mild pain (1-3 pain score). ALBUTEROL INHL Inhale 90 mcg every 6 (six) hours if needed (SOB or wheezing). aspirin 81 mg chewable tablet Chew 1 tablet (81 mg) with breakfast for 120 doses. 30 tablet 3 clopidogrel (Plavix) 75 mg tablet Take 1 tablet (75 mg) by mouth in the morning for 120 doses. 30 tablet 3 ergocalciferol (Vitamin D-2) 1.25 MG (06566 Units) capsule Take 50,000 Units by mouth 1 (one) time per week. escitalopram (Lexapro) 20 mg tablet Take 20 mg by mouth in the morning. fentaNYL (Duragesic) 12 mcg/hr Place 1 patch on the skin every 3rd (third) day. Takes 12 mcg and 25mcg together every 3 days fentaNYL (Duragesic) 25 mcg/hr Place 1 patch on the skin every 3rd (third) day. HYDROcodone-acetaminophen (Laverne) 5-325 mg tablet Take 2 tablets by [...] daily. metoclopramide (Reglan) 10 mg tablet Take 1 tablet (10 mg) by mouth if needed in the morning and atbedtime (nausea and vomiting). 60 tablet 0 metoprolol succinate XL (Toprol-XL) 25 mg 24 hr tablet Take 1 tablet (25 mg) by mouth in the morning for 92 doses. Do not crush or chew. Do not start before November 08, 2024. 30 tablet 3 mirtazapine (Remeron) 30 mg tablet Take 45 mg by mouth at bedtime. omeprazole (PriLOSEC) [address] capsule Take 40 mg by mouth before breakfast and before evening meal. Do not crush or chew. prucalopride 2 mg tablet Take 2 mg by mouth in the morning. rosuvastatin (Crestor) 40 mg tablet Take 1 tablet (40 mg) by mouth at bedtime for 99 doses. 30 tablet 3 sucralfate (Carafate) 1 gram tablet Take 1 [...] mouth at bedtime. verapamil (Calan) 40 mg tablet Take 1 tablet (40 mg) by mouth every 8 (eight) hours for 287 doses. 90 tablet 3 documented in this encounter Consult Notes * Lisa Pena DO - 11/09/2024 11:10 AM EDTAssociated Order(s): IP CONSULT TO CARDIOLOGY Images from the original note were not included. Cardiology Consult Note Reason for Consult: returned to hospital with obgoing chest pain HPI: Juan Kong is a 34 y.o. female w/ PMHx significant for HTN, HLD, asthma, RICHAR, hypothyroidism, GERD, IBS, fibromyalgia, T2DM, median arcuate ligament syndrome s/p celiac plexus block and MALS release, morbid obesity s/p sleeve gastrectomy, extensive chronic adhesions and recurrent obstructions, and gastroparesis s/p multiple infusions and J-tube c/b infection and removal who came as a direct admission from [facility] due to chest pain. Patient was hospitalized on 10/30/2024 for similar symptoms, and required coronary angiography and was found to have type III SCAD versus myocardial bridging in the mid LAD. Patient was started on aspirin, Plavix, metoprolol, and verapamil for medical treatment, and although some improvement was noted, patient required 2 more coronary angiography's in the next couple of days due to sharp shooting chest pain that resolved. Patient also had pseudoaneurysm repair complication after third catheterization as well as urinary retention that required Costello placement. Patient was discharged with improved chest pain and no more sharp pain episodes on 11/07/2024. Patient states she was supposed to be going to [facility] for PEG tube placement the next daywith her . As they were getting in the car, she started feeling similar chest pain, sharp shooting in nature, 10 out of 10, radiating to her left shoulder, along with diaphoresis, shortness ofbreath, and does not recall it being exacerbated with taking a deep breath. Patient was then taken to [facility] near [place], and was transferred from there to [facility] for appropriate workup of chest pain and continuation of care. TTE on 10/31/2024 shows EF 53% with biplane calculations, and 50 to 55% on estimation with regional WMA basal inferolateral, mid anterior, mid anteroseptal, mid inferoseptal, mid inferolateral and apical lateral left ventricular wall segments. Cardiology ROS: Review of Systems Constitutional: Negative [...] drug use. Family History Family History[1] Allergies Oxycodone-acetaminophen, Codeine, Nsaids (non-steroidal anti-inflammatory drug), and Adhesive Medications Current Outpatient Medications Medication Instructions acetaminophen (TYLENOL) 650 mg, oral, Every 4 hours PRN ALBUTEROL INHL 90 mcg, inhalation, Every 6 hours PRN aspirin 81 mg, oral, Daily with breakfast clopidogrel (PLAVIX) 75 mg, oral, Daily ergocalciferol (VITAMIN D-2) 50,000 Units, oral, Weekly escitalopram (LEXAPRO) 20 mg, oral, Daily fentaNYL (Duragesic) 12 mcg/hr 1 patch, transdermal, Every 72 hours, Takes 12 mcg and 25 mcg together every 3 days fentaNYL (Duragesic) 25 mcg/hr 1 patch, transdermal, Every 72 hours HYDROcodone-acetaminophen (Laverne) 5-325 mg tablet 2 tablets, oral, Every 4 hours PRN hydrocortisone (CORTEF) 10 mg, oral, Daily hydrOXYzine HCL (ATARAX) 50 mg, oral, Nightly PRN levothyroxine (SYNTHROID, LEVOXYL) 75 mcg, oral, Daily before breakfast liothyronine (CYTOMEL) 5 mcg, oral, Daily metFORMIN (OSM) (FORTAMET) 500 mg, oral, 2 times daily with meals, Do not crush, chew, or split. methocarbamol (ROBAXIN) 750 mg, oral, 4 times daily metoclopramide (REGLAN) 10 mg, oral, 2 times daily PRN metoprolol succinate XL (TOPROL-XL) 25 mg, oral, Daily, Do not crush or chew. mirtazapine (REMERON) 45 mg, oral, Nightly omeprazole (PRILOSEC) 40 mg, oral, 2 times daily before meals, Do not crush or chew. prucalopride 2 mg, oral, Daily rosuvastatin (CRESTOR) 40 mg, oral, Nightly sucralfate (CARAFATE) 1 g, oral, 4 times daily before meals and nightly topiramate (TOPAMAX) 100 mg, oral, 2 times daily traMADol (ULTRAM) 50 mg, oral, Every 6 hours PRN traZODone (DESYREL) 100 mg, oral, Nightly verapamil (CALAN) 40 mg, oral, Every 8 hours scheduled Prescriptions Prior to Admission[2] Last Recorded Vitals Patient Vitals for the past 24 hrs: Height Weight 11/09/24 1100 1.676 m (5' 5.98 ) 83 kg (183 lb) Physical Examination: Physical Exam Constitutional: General: She [...] Value Ventricular Rate 91 Atrial Rate 91 [place] Interval 134 QRS DURATION 88 QT Interval 386 QTC CALCULATION(BAZETT) 474 P [place] 63 R-[place] 35 T Wave [place] 46 Impression Sinus rhythm with PVCs Otherwise normal ECG When compared with ECG of 04-NOV-2024 13:40, PVCs are now Present Confirmed by Griffin Diaz ([id number]) on 11/07/2024 11:05:14 PM No results found for: CKTOTAL , CKMB , CKMBINDEX , TROPONINI Limited Echo (TTE) w/wo Limited Doppler, Color Flow, Imaging Agent, Strain, 3D, Bubble Study Result Date: 10/31/2024 1 1 [facility] Heart Station [address] [place] [address] [phone] (fax) Echocardiogram-[facility] Name: JUAN KONG Study Date: 10/31/2024 11:16 AM B/P: 106 mmHg/67 mmHg HR: 70 bpm Date of : 1990 [facility]. Age: 34 year(s) Patient [...] minimal pericardial effusion. 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 Since there is good coronary artery blood flow and the SCAD is non-flow limiting, medical therapy is recommended Myocardial bridging of mid LAD Right Groin Hematoma, right groin pseudoaneurysm s/p repair 11/02/24 SCAD type III in mid LAD T2DM Morbid obesity s/p sleeve gastrectomy IBS HTN HLD RICHAR GERD Hypothyroidism Asthma H/O median arcuate ligament syndrome s/p celiac plexus block and MALS release H/O extensive chronic adhesions and recurrent obstructions Gastroparesis s/p daily infusions and J-tube C/B infection and removal Fibromyalgia PLAN Lexiscan tomorrow to assess for ischemic evaluation Start Ranexa 500 mg BID Continue aspirin 81 mg and Plavix 75 mg daily Closely monitor Hgb Transfuse for hemoglobin < 8 Continue Toprol 25 mg daily and verapamil 40 mg every 8 hours May need to uptitrate verapamil if BP allows Rest of care per primary team Cardiology will continue following along This note was, at least in part, completed using a voice clergy member system. Every effort was made to ensure accuracy. However, inadvertent computerized clergy member errors may be present. Lisa Pena DO Internal Medicine Resident, PGY-2 [facility] 11:11 AM 11/09/24 [1] No family history on file. [2] Medications Prior to Admission Medication Sig Dispense Refill Last Dose/Taking acetaminophen (Tylenol) 325 mg tablet Take 650 mg by mouth every 4 (four) hours if needed for mild pain (1-3 pain score). ALBUTEROL INHL Inhale 90 mcg every 6 (six) hours if needed (SOB or wheezing). aspirin 81 mg chewable tablet Chew 1 tablet (81 mg) with breakfast for 120 doses. 30 tablet 3 clopidogrel (Plavix) 75 mg tablet Take 1 tablet (75 mg) by mouth in the morning for 120 doses. 30 tablet 3 ergocalciferol (Vitamin D-2) 1.25 MG (84261 Units) capsule Take 50,000 Units by mouth 1 (one) time per week. escitalopram (Lexapro) 20 mg tablet Take 20 mg by mouth in the morning. fentaNYL (Duragesic) 12 mcg/hr Place 1 patch on the skin every 3rd (third) day. Takes 12 mcg and 25mcg together every 3 days fentaNYL (Duragesic) 25 mcg/hr Place 1 patch on the skin every 3rd (third) day. HYDROcodone-acetaminophen (Laverne) 5-325 mg tablet Take 2 tablets by [...] daily. metoclopramide (Reglan) 10 mg tablet Take 1 tablet (10 mg) by mouth if needed in the morning and atbedtime (nausea and vomiting). 60 tablet 0 metoprolol succinate XL (Toprol-XL) 25 mg 24 hr tablet Take 1 tablet (25 mg) by mouth in the morning for 92 doses. Do not crush or chew. Do not start before November 08, 2024. 30 tablet 3 mirtazapine (Remeron) 30 mg tablet Take 45 mg by mouth at bedtime. omeprazole (PriLOSEC) [address] capsule Take 40 mg by mouth before breakfast and before evening meal. Do not crush or chew. prucalopride 2 mg tablet Take 2 mg by mouth in the morning. rosuvastatin (Crestor) 40 mg tablet Take 1 tablet (40 mg) by mouth at bedtime for 99 doses. 30 tablet 3 sucralfate (Carafate) 1 gram tablet Take 1 [...] mouth at bedtime. verapamil (Calan) 40 mg tablet Take 1 tablet (40 mg) by mouth every 8 (eight) hours for 287 doses. 90 tablet 3 Cosigned by Bacilio Conway MD at 11/09/2024 7:18 PM EDT Associated attestation - Bacilio Conway MD - 11/09/2024 7:18 PM EDT 11/09/24 By using the attestations below, the signing [...] My additional comments are as follows: Patient well-known to our service, has the diagnosis of spontaneous coronary artery dissection. We will plan for a Lexiscan stress test to reassess additional options of her challenging presentation In the interim, also agree with the plan for adding ranolazine 500 mg twice daily with plans to uptitrate Bacilio Conway MD, ScM, MSc Cardiac Contract Paralegal Email: [email or web address] documented in this encounter Nursing Notes * Patricia Butt RN - 11/13/2024 2:10 PM EDT AVS reviewed with patient, patient verbalized understanding, all questions answered. Patient declined wheelchair. Patient ambulated by self without incident at 1420. documented in this encounter Miscellaneous Notes * Care Plan - Patricia Butt RN - 11/13/2024 1:52 PM EDT The patient is Moderately Stable - Low risk of patient condition declining or worsening The patient's goals for the shift include No chest pain The clinical goals for the shift include Hemodynamically stable, VSS, comfort, pain control Over the shift, the patient did make progress toward the following goals. Problem: Pain - Adult Goal: Verbalizes/displays adequate comfort level or baseline comfort level Outcome: Adequate for Discharge Flowsheets (Taken 11/13/2024713) Verbalizes/displays adequate comfort level or baseline comfort level: Encourage patient to monitor pain and request assistance Problem: Safety - Adult Goal: Free from fall injury Outcome: Adequate for Discharge Flowsheets (Taken 11/13/2024713) Free from fall injury: Assess patient frequently for physical needs Problem: Discharge Planning Goal: Discharge to home or other facility with appropriate resources Outcome: Adequate for Discharge Flowsheets (Taken 11/13/2024713) Discharge to home or other facility with appropriate resources: Identify barriers to discharge withpatient and caregiver Problem: Chronic Conditions and Co-morbidities Goal: Patient's chronic conditions and co-morbidity symptoms are monitored and maintained or improved Outcome: Adequate for Discharge Flowsheets (Taken 11/13/2024713) Care Plan - Patient's Chronic Conditions and Co-Morbidity Symptoms are Monitored and Maintained or Improved: Monitor and assess patient's chronic conditions and comorbid symptoms for stability, deterioration, or improvement Problem: Gastrointestinal - Adult Goal: Minimal or absence of nausea and vomiting Outcome: Adequate for Discharge Flowsheets (Taken 11/13/2024713) Minimal or absence of nausea and vomiting: Administer IV fluids as ordered to ensure adequate hydration Goal: Maintains or returns to baseline bowel function Outcome: Adequate for Discharge Flowsheets (Taken 11/13/2024713) Maintains or returns to baseline bowel function: Assess bowel function Goal: Maintains adequate nutritional intake Outcome: Adequate for Discharge Flowsheets (Taken 11/13/2024713) Maintains adequate nutritional intake: Monitor percentage of each meal consumed Goal: Establish and maintain optimal ostomy function Outcome: Adequate for Discharge Problem: Skin/Tissue Integrity - Adult Goal: Skin integrity remains intact Outcome: Adequate for Discharge Flowsheets (Taken 11/13/2024713) Skin integrity remains intact: Monitor for areas of redness and/or skin breakdown Goal: Incisions, wounds, or drain sites healing without S/S of infection Outcome: Adequate for Discharge Flowsheets (Taken 11/13/2024713) Incisions, wounds, or drain sites healing without sign and symptoms of infection: ADMISSION and DAILY: Assess and document risk factors for pressure ulcer development Goal: Oral mucous membranes remain intact Outcome: Adequate for Discharge Flowsheets (Taken 11/13/2024713) Oral mucous membranes remain intact: Assess oral mucosa and hygiene practices Problem: Metabolic/Fluid and Electrolytes - Adult Goal: Electrolytes maintained within normal limits Outcome: Adequate for Discharge Flowsheets (Taken 11/13/2024713) Electrolytes maintained within normal limits: Monitor labs and assess patient for signs and symptoms of electrolyte imbalances Goal: Hemodynamic stability and optimal renal function maintained Outcome: Adequate for Discharge Flowsheets (Taken 11/13/2024713) Hemodynamic stability and optimal renal function maintained: Monitor labs and assess for signs and symptoms of volume excess or deficit Goal: Glucose maintained within prescribed range Outcome: Adequate for Discharge Flowsheets (Taken 11/13/2024713) Glucose maintained within prescribed range: Monitor blood glucose as ordered Problem: Neurosensory - Adult Goal: Achieves stable or improved neurological status Outcome: Adequate for Discharge Flowsheets (Taken 11/13/2024713) Achieves stable or improved neurological status: Assess for and report changes in neurological status Goal: Absence of seizures Outcome: Adequate for Discharge Flowsheets (Taken 11/13/2024713) Absence of seizures: Monitor for seizure activity. If seizure occurs, document type and location ofmovements and any associated apnea Goal: Remains free of injury related to seizures activity Outcome: Adequate for Discharge Flowsheets (Taken 11/13/2024713) Remains free of injury related to seizure activity: Maintain airway, patient safety and administer oxygen as ordered Goal: Achieves maximal functionality and self care Outcome: Adequate for Discharge Flowsheets (Taken 11/13/2024713) Achieves maximal functionality and self care: Monitor swallowing and airway patency with patient fatigue and changes in neurological status Problem: Respiratory - Adult Goal: Achieves optimal ventilation and oxygenation Outcome: Adequate for Discharge Flowsheets (Taken 11/13/2024713) Achieves optimal ventilation and oxygenation: Assess for changes in respiratory status Problem: Cardiovascular - Adult Goal: Maintains optimal cardiac output and hemodynamic stability Outcome: Adequate for Discharge Flowsheets (Taken 11/13/2024713) Maintains optimal cardiac output and hemodynamic stability: Monitor blood pressure and heart rate Goal: Absence of cardiac dysrhythmias or at baseline Outcome: Adequate for Discharge Flowsheets (Taken 11/13/2024713) Absence of cardiac dysrhythmias or at baseline: Monitor cardiac rate and rhythm Problem: Musculoskeletal - Adult Goal: Return mobility to safest level of function Outcome: Adequate for Discharge Flowsheets (Taken 11/13/2024713) Return mobility to safest level of function: Assess patient stability and activity tolerance for standing, transferring and ambulating with or without assistive devices Goal: Maintain proper alignment of affected body part Outcome: Adequate for Discharge Flowsheets (Taken 11/13/2024713) Maintain proper alignment of affected body part: Support and protect limb and body alignment per provider's orders Goal: Return ADL status to a safe level of function Outcome: Adequate for Discharge Flowsheets (Taken 11/13/2024713) Return ADL status to a safe level of function: Administer medication as ordered Problem: Genitourinary - Adult Goal: Absence of urinary retention Outcome: Adequate for Discharge Flowsheets (Taken 11/13/2024713) Absence of urinary retention: Assess patient???s ability to void and empty bladder Goal: Urinary catheter remains patent Outcome: Adequate for Discharge Flowsheets (Taken 11/13/2024713) Urinary catheter remains patent: Assess patency of urinary catheter Problem: Infection - Adult Goal: Absence of infection at discharge Outcome: Adequate for Discharge Flowsheets (Taken 11/13/2024713) Absence of infection at discharge: Assess and monitor for signs and symptoms of infection Goal: Absence of infection during hospitalization Outcome: Adequate for Discharge Goal: Absence of fever/infection during anticipated neutropenic period Outcome: Adequate for Discharge Flowsheets (Taken 11/13/2024713) Absence of fever/infection during anticipated neutropenic period: Monitor white blood cell count Problem: Hematologic - Adult Goal: Maintains hematologic stability Outcome: Adequate for Discharge Flowsheets (Taken 11/13/2024713) Maintains hematologic stability: Assess for signs and symptoms of bleeding or hemorrhage * Care Plan - rBianna Ling RN - 11/13/2024 1:12 PM EDT Daily Case Management Update Multidisciplinary rounds have been completed. Barriers to Discharge: Patient is medically ready for hospital discharge at this time. AVS has beencompleted, and primary RN has been notified of patients discharge readiness. Patient will be discharged to home with [facility], and family will provide patients discharge transportation. AVS has been sent to patients [facility] agency. No further OTM needs identified at this time. [facility] will continue to follow patient and assist with any further discharge related needs. Diet: Dietary Orders (From admission, onward) Start Ordered 11/13/24 1022 Regular Diet Diet effective now Question: Room Service? Answer: Yes 11/13/24 1021 11/10/24 1213 Dietary nutrition supplements BID (breakfast & dinner); Boost Glucose Control; Chocolate; 8 oz; Oral Until discontinued Question Answer Comment Deliver with BID breakfast & dinner Select supplement: Boost Glucose Control Flavor: Chocolate Strength: 8 oz Route Oral 11/10/24 1212 11/10/24 1212 Special Kitchen Request Once Comments: When diet advanced please send snacks 10-cottage cheese & fruit 2-egg salad & crackers HS-vanilla pudding 11/10/24 1212 Physician Expected Discharge Date: 11/13/2024 Discharge Delays: PT Six Click Score: 22 OT Six Click Score: PT Recommendations: OT Recommendations: Does patient understand post acute plan of care? Yes Is expected discharge disposition appropriate for patient?: Yes New Consults: * Significant Event - Shelley Burgess CRT - 11/13/2024 11:57 AM EDT 11/13/24 1156 Home Oxygen Therapy Evaluation Home Oxygen Therapy No Pulse Oximetry on room air at Rest 100 Pulse Ox on O2 with nasal cannula while at rest 100 (2L) Pulse Ox on room air while walking 99 Patient Qualification for home oxygen Does not qualify for home oxygen this visit $ Pulse Oximetry Multiple * Care Plan - Diamond Cardoza RN - 11/13/2024 1:48 AM EDT The patient is Moderately Stable - Low risk of patient condition declining or worsening The patient's goals for the shift include rest, comfort The clinical goals for the shift include vss. safety Over the shift, the patient did not make progress toward the following goals. Barriers to progression include pain not adequately managed with PRN medications. Recommendations to address these barriers include making changes to the plan of care as needed. Problem: Pain - Adult Goal: Verbalizes/displays adequate comfort level or baseline comfort level Outcome: Not Progressing Flowsheets (Taken 11/12/20242007) Verbalizes/displays adequate comfort level or baseline comfort [...] interventions unsuccessful or patient reports new pain * Assessment & Plan Note - Marky Tavares MD - 11/12/2024 12:39 PM EDT Associated Problem(s): Chest pain - Cath on 11/01/2024: Coronary angiogram and IVUS demonstrate focal SCAD (Type 3 SCAD) in the mid LAD versus myocardial bridging. Since there is good coronary artery blood flow and the SCAD is non-flow limiting, medical therapy is recommended - cards following, appreciate recommendations Lexiscan completed, significant artifact, but overall not positive Continue aspirin 81 mg and Plavix 75 mg daily Closely monitor Hgb Transfuse for hemoglobin < 8 Continue Toprol 25 mg daily and verapamil 40 mg every 8 hours May need to uptitrate verapamil if BP allows 4. Pending CTA coronary artery * Assessment & Plan Note - Marky Tavares MD - 11/12/2024 12:39 PM EDT Associated Problem(s): Myocardial bridge - Cath on 11/01/2024: Coronary angiogram and IVUS demonstrate focal SCAD (Type 3 SCAD) in the mid LAD versus myocardial bridging. Since there is good coronary artery blood flow and the SCAD is non-flow limiting, medical therapy is recommended - cards following, appreciate recommendations Lexiscan completed, significant artifact, but overall not positive Continue aspirin 81 mg and Plavix 75 mg daily Closely monitor Hgb Transfuse for hemoglobin < 8 Continue Toprol 25 mg daily and verapamil 40 mg every 8 hours May need to uptitrate verapamil if BP allows 4. 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 Since there is good coronary artery blood flow and the SCAD is non-flow limiting, medical therapy is recommended - cards following, appreciate recommendations Lexiscan completed, significant artifact, but overall not positive Continue aspirin 81 mg and Plavix 75 mg daily Closely monitor Hgb Transfuse for hemoglobin < 8 Continue Toprol 25 mg daily and verapamil 40 mg every 8 hours May need to uptitrate verapamil if BP allows 4. Pending CTA coronary artery * Assessment & Plan Note - Marky Tavares MD - 11/12/2024 12:39 PM EDT Associated Problem(s): Pseudoaneurysm of right femoral artery -s/p hematoma evaluation and repair of pseudoaneurysm on 11/02 -stable around 8.5 - follow Hgb with daily CBC * Assessment & Plan Note - Marky Tavares MD - 11/12/2024 12:39 PM EDT Associated Problem(s): Hypothyroidism -resume home meds * Assessment & Plan Note - Marky Tavares MD - 11/12/2024 12:39 PM EDT Associated Problem(s): Gastroparesis - currently on TPN and regular diet - consulted dietary for TPN. TPN has been started * Assessment & Plan Note - Marky Tavares MD - 11/12/2024 12:39 PM EDT Associated Problem(s): Median arcuate ligament syndrome - currently on TPN and regular diet - consulted dietary for TPN. TPN has been started * Assessment & Plan Note - Marky Tavares MD - 11/12/2024 12:39 PM EDT Associated Problem(s): S/P laparoscopic sleeve gastrectomy - currently on TPN and regular diet - consulted dietary for TPN. TPN has been started * Assessment & Plan Note - Marky Tavares MD - 11/12/2024 12:39 PM EDT Associated Problem(s): History of adrenal insufficiency -stable - cont cortef * Assessment & Plan Note - Marky Tavares MD - 11/12/2024 12:39 PM EDT Associated Problem(s): Type 2 diabetes mellitus without complication, without long-term current useof insulin ([facility]) - ISS - Blood glucose is well controlled on 11/12 without significant use of insulin * Assessment & Plan Note - Marky Tavares MD - 11/12/2024 12:39 PM EDT Associated Problem(s): IBS (irritable bowel syndrome) - on prucalopride outpt * Assessment & Plan Note - Marky Tavares MD - 11/12/2024 12:39 PM EDT Associated Problem(s): Chronic pain syndrome -resumed her fentanyl patch. Changed norco to roxicodone - Changed morphine IV to dilaudid IV according to morphine equivalent * Care Plan - Patricia Butt RN - 11/12/2024 11:10 AM EDT The patient is Moderately Stable - Low risk of patient condition declining or worsening The patient's goals for the shift include No chest pain The clinical goals for the shift include Hemodynamically stable, VSS, comfort, pain control Over the shift, the patient did not make progress toward the following goals. Barriers to progression include including CRP, high-sensitivity troponin levels. Medication adjustments are ongoing, including the initiation of colchicine 0.3 mg every other day, which must be timed carefully due to interactions with verapamil and Ranexa. Ranexa has been started, and further titration of verapamil may be needed if blood pressure permits. The patient is also being monitored for chest pain related to myocardial bridging and a [id number] Type 3 SCAD seen on recent coronary angiogram, with cardiology actively involved in management. Close observation of hemoglobin levels is required due to dual antiplatelet therapy, with transfusion indicated for Hgb <8. Additional monitoring is needed post-repair of a right femoral artery pseudoaneurysm, with daily CBCs to track stability. Nutritional needs remain complex due to gastroparesis and history of bariatric surgery, requiring TPN and candy separator hard oversight. Recommendations to address these barriers include close monitoring of hemoglobin levels is essential, with prompt notification for values approaching transfusion thresholds. Monitor blood pressure closely to assess for potential verapamil titration. Administer all cardiac medications as ordered, including Ranexa, verapamil, Toprol, aspirin, and Plavix, while observing for side effects. Monitor for signs of recurrent chest pain or hemodynamic instability, and maintain open communication with cardiology. Observe the femoral access site for signs of bleeding or recurrent pseudoaneurysm. Continueto administer chronic medications, including Cortef for adrenal insufficiency and pain medications as adjusted. Problem: Pain - Adult Goal: Verbalizes/displays adequate comfort level or baseline comfort level Outcome: Not Progressing Flowsheets (Taken 11/12/2024 0715) Verbalizes/displays adequate comfort level or baseline comfort level: Encourage patient to monitor pain and request assistance Problem: Cardiovascular - Adult Goal: Maintains optimal cardiac output and hemodynamic stability Outcome: Not Progressing * Care Plan - Diamond Cardoza RN - 11/12/2024 1:43 AM EDT The patient is Moderately Stable - Low risk of patient condition declining or worsening The patient's goals for the shift include rest, comfort The clinical goals for the shift include vss. safety Over the shift, the patient did not make progress toward the following goals. Barriers to progression include pain not adequately managed with PRN medications. Recommendations to address these barriers include making changes to the plan of care as needed. Problem: Pain - Adult Goal: Verbalizes/displays adequate comfort level or baseline comfort level Outcome: Not Progressing Flowsheets (Taken 11/11/20241944) Verbalizes/displays adequate comfort level or baseline comfort [...] interventions unsuccessful or patient reports new pain * Care Plan - Stacie Keyes RN - 11/11/2024 1:32 PM EDT Problem: Pain - Adult Goal: Verbalizes/displays adequate comfort level or baseline comfort level Outcome: Progressing Problem: Safety - Adult Goal: Free from fall injury Outcome: Progressing Problem: Discharge Planning Goal: Discharge to home or other facility with appropriate resources Outcome: Progressing Problem: Chronic Conditions and Co-morbidities Goal: Patient's chronic conditions and co-morbidity symptoms are monitored and maintained or improved Outcome: Progressing The patient is Moderately Stable - Low risk of patient condition declining or worsening The patient's goals for the shift include comfort The clinical goals for the shift include VSS, safety * Assessment & Plan Note - Marky Tavares MD - 11/11/2024 10:32 AM EDT Associated Problem(s): Chest pain - Cath on 11/01/2024: Coronary angiogram and IVUS demonstrate focal SCAD (Type 3 SCAD) in the mid LAD versus myocardial bridging. Since there is good coronary artery blood flow and the SCAD is non-flow limiting, medical therapy is recommended - cards following, appreciate recommendations Lexiscan completed, significant artifact, but overall not positive Continue aspirin 81 mg and Plavix 75 mg daily Closely monitor Hgb Transfuse for hemoglobin < 8 Continue Toprol 25 mg daily and verapamil 40 mg every 8 hours May need to uptitrate verapamil if BP allows * Assessment & Plan Note - Marky Tavares MD - 11/11/2024 10:32 AM EDT Associated Problem(s): Myocardial bridge - Cath on 11/01/2024: Coronary angiogram and IVUS demonstrate focal SCAD (Type 3 SCAD) in the mid LAD versus myocardial bridging. 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 Since there is good coronary artery blood flow and the SCAD is non-flow limiting, medical therapy is recommended - cards following, appreciate recommendations Lexiscan completed, significant artifact, but overall not positive Continue aspirin 81 mg and Plavix 75 mg daily Closely monitor Hgb Transfuse for hemoglobin < 8 Continue Toprol 25 mg daily and verapamil 40 mg every 8 hours May need to uptitrate verapamil if BP allows * Assessment & Plan Note - Marky Tavares MD - 11/11/2024 10:32 AM EDT Associated Problem(s): Pseudoaneurysm of right femoral artery -s/p hematoma evaluation and repair of pseudoaneurysm on 11/02 -stable - follow Hgb with daily CBC * Assessment & Plan Note - Marky Tavares MD - 11/11/2024 10:32 AM EDT Associated Problem(s): Hypothyroidism -resume home meds * Assessment & Plan Note - Marky Tavares MD - 11/11/2024 10:32 AM EDT Associated Problem(s): Gastroparesis - currently on TPN and regular diet - consulted dietary for TPN. TPN has been started * Assessment & Plan Note - Marky Tavares MD - 11/11/2024 10:32 AM EDT Associated Problem(s): Median arcuate ligament syndrome - currently on TPN and regular diet - consulted dietary for TPN. TPN has been started * Assessment & Plan Note - Marky Tavares MD - 11/11/2024 10:32 AM EDT Associated Problem(s): S/P laparoscopic sleeve gastrectomy - currently on TPN and regular diet - consulted dietary for TPN. TPN has been started * Assessment & Plan Note - Marky Tavares MD - 11/11/2024 10:32 AM EDT Associated Problem(s): History of adrenal insufficiency -stable - cont cortef * Assessment & Plan Note - Marky Tavares MD - 11/11/2024 10:32 AM EDT Associated Problem(s): Type 2 diabetes mellitus without complication, without long-term current useof insulin ([facility]) - ISS - Blood glucose is well controlled on 11/11 without significant use of insulin * Assessment & Plan Note - Marky Tavares MD - 11/11/2024 10:32 AM EDT Associated Problem(s): IBS (irritable bowel syndrome) - on prucalopride outpt * Assessment & Plan Note - Marky Tavares MD - 11/11/2024 10:32 AM EDT Associated Problem(s): Chronic pain syndrome -resumed her fentanyl patch. Changed norco to roxicodone - Changed morphine IV to dilaudid IV according to morphine equivalent * Care Plan - Diamond Cardoza RN - 11/11/2024 1:24 AM EDT The patient is Moderately Stable - Low risk of patient condition declining or worsening The patient's goals for the shift include rest, comfort The clinical goals for the shift include vss. safety Over the shift, the patient did not make progress toward the following goals. Barriers to progression include chest pain not well managed by PRN medications. Recommendations to address these barriersinclude making changes to the plan of care as needed. Problem: Pain - Adult Goal: Verbalizes/displays adequate comfort level or baseline comfort level Outcome: Not Progressing Flowsheets (Taken 11/10/20242020) Verbalizes/displays adequate comfort level or baseline comfort [...] interventions unsuccessful or patient reports new pain * Assessment & Plan Note - Marky Tavares MD - 11/10/2024 4:18 PM EDTAssociated Problem(s): Chest pain - Cath on 11/01/2024: Coronary angiogram and IVUS demonstrate focal SCAD (Type 3 SCAD) in the mid LAD versus myocardial bridging. Since there is good coronary artery blood flow and the SCAD is non-flow limiting, medical therapy is recommended - cards following, appreciate recommendations Lexiscan completed, pending result Continue aspirin 81 mg and Plavix 75 mg daily Closely monitor Hgb Transfuse for hemoglobin < 8 Continue Toprol 25 mg daily and verapamil 40 mg every 8 hours May need to uptitrate verapamil if BP allows * Assessment & Plan Note - Marky Tavares MD - 11/10/2024 4:18 PM EDTAssociated Problem(s): Myocardial bridge - Cath on 11/01/2024: Coronary angiogram and IVUS demonstrate focal SCAD (Type 3 SCAD) in the mid LAD versus myocardial bridging. Since there is good coronary artery blood flow and the SCAD is non-flow limiting, medical therapy is recommended - cards following, appreciate recommendations Lexiscan completed, pending result Continue aspirin 81 mg and Plavix 75 mg daily Closely monitor Hgb Transfuse for hemoglobin < 8 Continue Toprol 25 mg daily and verapamil 40 mg every 8 hours May need to uptitrate verapamil if BP allows * Assessment & Plan Note - Marky Tavares MD - 11/10/2024 4:18 PM EDTAssociated Problem(s): Spontaneous dissection of coronary artery - Cath on 11/01/2024: Coronary angiogram and IVUS demonstrate focal SCAD (Type 3 SCAD) in the mid LAD versus myocardial bridging. Since there is good coronary artery blood flow and the SCAD is non-flow limiting, medical therapy is recommended - cards following, appreciate recommendations Lexiscan completed, pending result Continue aspirin 81 mg and Plavix 75 mg daily Closely monitor Hgb Transfuse for hemoglobin < 8 Continue Toprol 25 mg daily and verapamil 40 mg every 8 hours May need to uptitrate verapamil if BP allows * Assessment & Plan Note - Marky Tavares MD - 11/10/2024 4:18 PM EDTAssociated Problem(s): Pseudoaneurysm of right femoral artery -s/p hematoma evaluation and repair of pseudoaneurysm on 11/02 -stable - follow Hgb with daily CBC * Assessment & Plan Note - Marky Tavares MD - 11/10/2024 4:18 PM EDTAssociated Problem(s): Hypothyroidism -resume home meds * Assessment & Plan Note - Marky Tavares MD - 11/10/2024 4:18 PM EDTAssociated Problem(s): Gastroparesis - currently on TPN and regular diet - consulted dietary for TPN * Assessment & Plan Note - Marky Tavares MD - 11/10/2024 4:18 PM EDTAssociated Problem(s): Median arcuate ligament syndrome - currently on TPN and regular diet - consulted dietary for TPN * Assessment & Plan Note - Marky Tavares MD - 11/10/2024 4:18 PM EDTAssociated Problem(s): S/P laparoscopic sleeve gastrectomy - currently on TPN and regular diet - consulted dietary for TPN * Assessment & Plan Note - Marky Tavares MD - 11/10/2024 4:18 PM EDTAssociated Problem(s): History of adrenal insufficiency -stable - cont cortef * Assessment & Plan Note - Marky Tavares MD - 11/10/2024 4:18 PM EDTAssociated Problem(s): Type 2 diabetes mellitus without complication, without long-term current useof insulin ([facility]) - ISS - Blood glucose is well controlled without significant use of insulin * Assessment & Plan Note - Marky Tavares MD - 11/10/2024 4:18 PM EDTAssociated Problem(s): IBS (irritable bowel syndrome) - on prucalopride outpt * Assessment & Plan Note - Marky Tavares MD - 11/10/2024 4:18 PM EDTAssociated Problem(s): Chronic pain syndrome -resumed her fentanyl patch. Changed norco to roxicodone * Care Plan - Siena Manrique RN - 11/10/2024 3:26 PM EDT The patient is Moderately Stable - Low risk of patient condition declining or worsening The patient's goals for the shift include rest The clinical goals for the shift include VSS; safety Problem: Pain - Adult Goal: Verbalizes/displays adequate comfort level or baseline comfort level Outcome: Progressing Problem: Safety - Adult Goal: Free from fall injury Outcome: Progressing Problem: Discharge Planning Goal: Discharge to home or other facility with appropriate resources Outcome: Progressing Problem: Chronic Conditions and Co-morbidities Goal: Patient's chronic conditions and co-morbidity symptoms are monitored and maintained or improved Outcome: Progressing Problem: Gastrointestinal - Adult Goal: Minimal or absence of nausea and vomiting Outcome: Progressing Goal: Maintains or returns to baseline bowel function Outcome: Progressing Goal: Maintains adequate nutritional intake Outcome: Progressing Problem: Skin/Tissue Integrity - Adult Goal: Skin integrity remains intact Outcome: Progressing Goal: Incisions, wounds, or drain sites healing without S/S of infection Outcome: Progressing Goal: Oral mucous membranes remain intact Outcome: Progressing Problem: Metabolic/Fluid and Electrolytes - Adult Goal: Electrolytes maintained within normal limits Outcome: Progressing Goal: Hemodynamic stability and optimal renal function maintained Outcome: Progressing * Care Plan - Evelyne Abrams RN - 11/10/2024 11:34 AM EDT Lexiscan stress test Patient information sheet explained, questions answered and signed. Patient states understanding of testing procedure Doctor consulted--NA Treatment/Decision tree utilized: chest pain s/p SCAD a week ago Inpatient Baseline: pt continues to c/o left side chest pain that radiates to shoulder and back 7/10. Jaylin JEFFERS discussed chest pain with Dr Manzano and Dr Conway. EKG and troponin were ordered for her continued chest pain prior to stress test. Troponin and EKG stable and ok to proceed with stress test. Pt tolerated lexiscan stess test well Pt c/o chest pain 8/10 and shortness of breath during infusion and SOB resolved on own. Chest pain continues and is back down to 7/10. No acute ST or T wave changes noted Occasional PVC'S noted EKG returned to normal in recovery Pt left stress lab asymptomatic and hemodynamically stable Full final report from aids nurse to follow. Evelyne Abrams RN [facility] Cardiovascular Stress Lab * Care Plan - Diamond Cardoza RN - 11/10/2024 1:31 AM EDT The patient is Moderately Stable - Low risk of patient condition declining or worsening The patient's goals for the shift include rest, comfort The clinical goals for the shift include vss. safety * Assessment & Plan Note - Shanna Lamas DO - 11/09/2024 1:43 PM EDT Associated Problem(s): Chest pain - Cath on 11/01/2024: Coronary angiogram and IVUS demonstrate focal SCAD (Type 3 SCAD) in the mid LAD versus myocardial bridging. Since there is good coronary artery blood flow and the SCAD is non-flow limiting, medical therapy is recommended - cards consulted Lexiscan tomorrow to assess for ischemic evaluation Continue aspirin 81 mg and Plavix 75 mg daily Closely monitor Hgb Transfuse for hemoglobin < 8 Continue Toprol 25 mg daily and verapamil 40 mg every 8 hours May need to uptitrate verapamil if BP allows * Assessment & Plan Note - Shanna Lamas DO - 11/09/2024 1:43 PM EDT Associated Problem(s): Myocardial bridge - Cath on 11/01/2024: Coronary angiogram and IVUS demonstrate focal SCAD (Type 3 SCAD) in the mid LAD versus myocardial bridging. 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 Since there is good coronary artery blood flow and the SCAD is non-flow limiting, medical therapy is recommended - cards consulted Lexiscan tomorrow to assess for ischemic evaluation Continue aspirin 81 mg and Plavix 75 mg daily Closely monitor Hgb Transfuse for hemoglobin < 8 Continue Toprol 25 mg daily and verapamil 40 mg every 8 hours May need to uptitrate verapamil if BP allows * Assessment & Plan Note - Shanna Lamas DO - 11/09/2024 1:43 PM EDT Associated Problem(s): Hypothyroidism -resume home meds * Assessment & Plan Note - Shanna Lamas DO - 11/09/2024 1:43 PM EDT Associated Problem(s): Gastroparesis - currently on TPN and regular diet - consulted dietary for TPN * Assessment & Plan Note - Shanna Lamas DO - 11/09/2024 1:43 PM EDT Associated Problem(s): Median arcuate ligament syndrome - currently on TPN and regular diet - consulted dietary for TPN * Assessment & Plan Note - Shanna Lamas DO - 11/09/2024 1:43 PM EDT Associated Problem(s): S/P laparoscopic sleeve gastrectomy - currently on TPN and regular diet - consulted dietary for TPN * Assessment & Plan Note - Shanna Lamas DO - 11/09/2024 1:43 PM EDT Associated Problem(s): History of adrenal insufficiency -stable - cont cortef * Assessment & Plan Note - Shanna Lamas DO - 11/09/2024 1:43 PM EDT Associated Problem(s): Type 2 diabetes mellitus without complication, without long-term current useof insulin ([facility]) - ISS * Assessment & Plan Note - Shanna Lamas DO - 11/09/2024 1:43 PM EDT Associated Problem(s): Pseudoaneurysm of right femoral artery -s/p hematoma evaluation and repair of pseudoaneurysm 11/02 -stable - follow Hgb * Assessment & Plan Note - Shanna Lamas DO - 11/09/2024 1:43 PM EDT Associated Problem(s): IBS (irritable bowel syndrome) - on prucalopride outpt * Assessment & Plan Note - Shanna Lamas DO - 11/09/2024 1:43 PM EDT Associated Problem(s): Chronic pain syndrome -resumed her fentanyl patch and orco documented in this encounter Plan of Treatment Upcoming Encounters Date Type Department Care Team (Late st Contact Info) Description 11/28/2024 11:00 AM EDT Follow-Up [facility] [address] [place] [phone] Wali Collins MD [address] [place] [phone] 12/04/2024 10:00 AM EDT Office Visit [facility] at [facility] [address] [place] [address] Katie Altamirano MD [address] [facility] [place] [phone] Scheduled Orders Name Type Priority Associated Diagnoses Orde r Schedule CBC Lab Routine Chest pain Expected: 11/16/2024 (Approximate), Expi res: 11/13/2025 documented as of this encounter Procedures Procedure Name Priority Date/Time Associated Diagnosis Comments XR CHEST 1 VIEW Routine 11/13/2024 12:51 PM EDT POCT GLUCOSE METER UNSOLICITED RESULTS Routine 11/13/2024 11:08 AM EDT HOME O2 EVAL (DESATURATION SCREEN) Routine 11/13/2024 10:32 AM EDT HIGH SENSITIVITY TROPONIN I Pending Discharge 11/13/2024 7:03 AM EDT CBC Pending Discharge 11/13/2024 7:03 AM EDT BASIC METABOLIC PANEL Pending Discharge 11/13/2024 7:03 AM EDT POCT GLUCOSE METER UNSOLICITED RESULTS Routine 11/13/2024 7:01 AM EDT HIGH SENSITIVITY TROPONIN I Pending Discharge 11/13/2024 12:17 AM EDT POCT GLUCOSE METER UNSOLICITED RESULTS Routine 11/13/2024 12:16 AM EDT HIGH SENSITIVITY TROPONIN I Pending Discharge 11/12/2024 6:28 PM EDT POCT GLUCOSE METER UNSOLICITED RESULTS Routine 11/12/2024 6:18 PM EDT ECG 12-LEAD Routine 11/12/2024 1:41 PM EDT HIGH SENSITIVITY TROPONIN I STAT 11/12/2024 1:34 PM EDT HIGH SENSITIVITY TROPONIN I Pending Discharge 11/12/2024 10:56 AM EDT POCT GLUCOSE METER UNSOLICITED RESULTS Routine 11/12/2024 10:55 AM EDT HIGH SENSITIVITY TROPONIN I Pending Discharge 11/12/2024 6:30 AM EDT CBC Pending Discharge 11/12/2024 6:30 AM EDT BASIC METABOLIC PANEL Pending Discharge 11/12/2024 6:30 AM EDT POCT GLUCOSE METER UNSOLICITED RESULTS Routine 11/12/2024 6:27 AM EDT HIGH SENSITIVITY TROPONIN I Pending Discharge 11/12/2024 12:00 AM EDT POCT GLUCOSE METER UNSOLICITED RESULTS Routine 11/11/2024 11:56 PM EDT CTA CHEST W IV CONTRAST STAT 11/11/2024 8:55 PM EDT ECG 12-LEAD STAT 11/11/2024 6:15 PM EDT HIGH SENSITIVITY TROPONIN I Pending Discharge 11/11/2024 6:14 PM EDT POCT GLUCOSE METER UNSOLICITED RESULTS Routine 11/11/2024 5:16 PM EDT C-REACTIVE PROTEIN Pending Discharge 11/11/2024 3:29 PM EDT POCT GLUCOSE METER UNSOLICITED RESULTS Routine 11/11/2024 12:49 PM EDT SEDIMENTATION RATE Add-On 11/11/2024 6: 39 AM EDT CBC Pending Discharge 11/11/2024 6:39 AM EDT BASIC METABOLIC PANEL Pending Discharge 11/11/2024 6:39 AM EDT POCT GLUCOSE METER UNSOLICITED RESULTS Routine 11/11/2024 6:35 AM EDT POCT GLUCOSE METER UNSOLICITED RESULTS Routine 11/11/2024 12:55 AM EDT HIGH SENSITIVITY TROPONIN I Pending Discharge 11/10/2024 8:50 PM EDT POCT GLUCOSE METER UNSOLICITED RESULTS Routine 11/10/2024 6:24 PM EDT ECG 12-LEAD STAT 11/10/2024 3:11 PM EDT HIGH SENSITIVITY TROPONIN I Pending Discharge 11/10/2024 2:22 PM EDT POCT GLUCOSE METER UNSOLICITED RESULTS Routine 11/10/2024 1:06 PM EDT LEXISCAN STRESS MYOCARDIAL PERFUSION IMAGING Routine 11/10/2024 11:23 AM EDT XR CHEST 1 VIEW Routine 11/10/2024 9:01 AM EDT ECG 12-LEAD Routine 11/10/2024 8:09 AM EDT HIGH SENSITIVITY TROPONIN I STAT 11/10/2024 7:44 AM EDT POCT GLUCOSE METER UNSOLICITED RESULTS Routine 11/10/2024 7:39 AM EDT POCT GLUCOSE METER UNSOLICITED RESULTS Routine 11/09/2024 9:21 PM EDT POCT GLUCOSE METER UNSOLICITED RESULTS Routine 11/09/2024 4:12 PM EDT HIGH SENSITIVITY TROPONIN I Routine 11/09/2024 2:09 PM EDT CBC WITH AUTO DIFFERENTIAL Routine 11/09/2024 2:09 PM EDT CBC AND DIFFERENTIAL Routine 11/09/2024 2:09 PM EDT MAGNESIUM Routine 11/09/2024 2:09 PM EDT BASIC METABOLIC PANEL Routine 11/09/2024 2:09 PM EDT ECG 12-LEAD Routine 11/09/2024 12:39 PM EDT documented in this encounter Results * XR chest 1 view (11/13/2024 12:51 PM EDT) Anatomical Region Laterality Modality Chest Computed Radiogr aphy 11/13/2024 12:5 3 PM EDT Impressions 11/13/2024 12:53 PM EDT No acute cardiopulmonary disease, with only mild right basilar atelectasis. Electronically signed: Willis Simons MD. Narrative 11/13/2024 12:53 PM EDT CHEST 1 VIEW HISTORY: Chest pain, shortness of breath COMPARISON: 11/10/2024 FINDINGS: Stable right-sided central venous catheter. Mild right basilar atelectasis. No focal airspace disease, pulmonary edema, pleural effusions, or pneumothorax. Normal cardiomediastinal silhouette. Procedure Note Willis Simons MD - 11/13/2024 CHEST 1 VIEW HISTORY: Chest pain, shortness of breath COMPARISON: 11/10/2024 FINDINGS: Stable right-sided central venous catheter. Mild right basilaratelectasis. No focal airspace disease, pulmonary edema, pleural effusions, orpneumothorax. Normal cardiomediastinal silhouette. IMPRESSION: No acute cardiopulmonary disease, with only mild right basilaratelectasis. Electronically signed: Willis Simons MD. us Marky Tavares MD IMG XR PROCEDURES Final Result * POCT glucose meter (11/13/2024 11:08 AM EDT) Pathologist [facility] Glucose POC 97 70 - 105 mg/dL 11/13/2024 11:26 AM EDT [facility] ([facility]) Comment:[email or web address] Blood Capillary blood specimen / Unknown 11/13/2024 11:08 AM EDT 11/13/2024 11:26 AM EDT Narrative [facility] ([facility]) - 11/13/2024 11:26 AM EDT Waived Testing in the ED is performed under the ED CLIA certificate #[id number]. Marky Tavares MD LAB BLOOD ORDERABLES Final Res ult [facility]) [address] [place], [place] [id number] * High Sensitivity Troponin I (11/13/2024 7:03 AM EDT) [facility] High Sensitivity Troponin I <2 <15 ng/L 11/13/2024 7:58 AM EDT [facility] ([facility]) Blood Venous blood specimen / Unknown Existing Catheter / Unknown 11/13/2024 7:03 AM EDT 11/13/2024 7:21 AM EDT Marky Tavares MD LAB BLOOD ORDERABLES Final Res ult [facility]) [address] [place] [address] * (ABNORMAL) Basic metabolic panel (11/13/2024 7:03 AM EDT) [facility] Sodium 140 136 - 145 mmol/L 11/13/2024 7:58 AM EDT [facility] ([facility]) Potassium 3.8 3.5 - 5.1 mmol/L 11/13/2024 7:58 AM EDT [facility] ([facility]) Chloride 108(H) 98 - 107 mmol/L 11/13/2024 7:58 AM EDT [facility] ([facility]) CO2 25 21 - 31 mmol/L 11/13/2024 7:58 AM EDT [facility] ([facility]) BUN 9 7 - 25 mg/dL 11/13/2024 7:58 AM T [facility] ([facility]) Creatinine 0.72 0.60 - 1.20 mg/dL 11/13/2024 7:58 AM EDT [facility] ([facility]) Glucose 81 70 - 100 mg/dL 11/13/2024 7:58 AM T [facility] ([facility]) Calcium 8.4(L) 8.6 - 10.3 mg/dL 11/13/2024 7:58 AM T [facility] ([facility]) Anion Gap 11 7 - 20 mmol/L 11/13/2024 7:58 AM [facility] ([facility]) eGFR 111.8 >60.0 mL/min/1. 73m*2 11/13/2024 7:58 AM T [facility] ([facility]) Comment:[facility] s estimated glomerular filtration rate (eGFR) [...] any one group of individuals. BUN/Creatinine Ratio 12.5 10/17 7:58 AM T [facility] ([facility]) Blood Venous blood specimen / Unknown Existing Catheter / Unknown 11/13/2024 7:03 AM EDT 11/13/2024 7:21 AM EDT us Marky Tavares MD LAB BLOOD ORDERABLES Final Res ult [facility] ([facility]) [address] [place] [address] * (ABNORMAL) CBC (11/13/2024 7:03 AM EDT) Auto WBC 3.34(L) 4.00 - 10.60 10*3/uL 11/13/2024 7:35 AM EDT [facility] ([facility]) RBC 2.88(L) 3.80 - 5.00 10*6/uL 11/13/2024 7:35 AM EDT [facility] ([facility]) Hemoglobin 8.6(L) 12.0 - 15.0 g/dL 11/13/2024 7:35 AM EDT [facility] ([facility]) Hematocrit 26.2(L) 36.0 - 45.0 % 11/13/2024 7:35 AM EDT [facility] ([facility]) MCV 91.0 82.0 - 98.0 fL 11/13/2024 7:35 AM EDT [facility] ([facility]) MCH 29.9 27.0 - 33.0 pg 11/13/2024 7:35 AM EDT [facility] ([facility]) MCHC 32.8 32.0 - 35.0 g/dL 11/13/2024 7:35 AM EDT [facility] ([facility]) RDW 14.6 11.5 - 15.0 % 11/13/2024 7:35 AM EDT [facility] ([facility]) Platelets 257 150 - 400 10*3/uL 11/13/2024 7:35 AM EDT [facility] ([facility]) Blood Venous blood specimen / Unknown Existing Catheter / Unknown 11/13/2024 7:03 AM EDT 11/13/2024 7:22 AM EDT us Marky Tavares MD LAB BLOOD ORDERABLES Final Res ult [facility] ([facility]) [address] [place], [place] [id number] * POCT glucose meter (11/13/2024 7:01 AM EDT) Glucose POC 94 70 - 105 mg/dL 11/13/2024 7:13 AM EDT [facility] ([facility]) Comment:[email or web address] Blood Capillary blood specimen / Unknown 11/13/2024 7:01 AM EDT 11/13/2024 7:13 AM EDT Narrative [facility] ([facility]) - 11/13/2024 7:13 AM EDT Waived Testing in the ED is performed under the ED CLIA certificate #[id number]. Marky Tavares MD LAB BLOOD ORDERABLES Final Res ult Performing Organization Address City/[facility]/ZIP Co de Phone Number [facility]) [address] [place] [address] * High Sensitivity Troponin I (11/13/2024 12:17 AM EDT) [facility] High Sensitivity Troponin I 3 <15 ng/L 11/13/2024 1:08 AM EDT [facility] ([facility]) Blood Venous blood specimen / Unknown Existing Catheter / Unknown 11/13/2024 12:17 AM EDT 11/13/2024 12:38 AM EDT Marky Tavares MD LAB BLOOD ORDERABLES Final Res ult [facility]) [address] [place] [address] * (ABNORMAL) POCT glucose meter (11/13/2024 12:16 AM EDT) Glucose POC 111(H) 70 - 105 mg/dL 11/13/2024 12:28 AM EDT [facility]) Comment:[email or web address] Blood Capillary blood specimen / Unknown 11/13/2024 12:16 AM EDT 11/13/2024 12:28 AM EDT Narrative [facility] ([facility]) - 11/13/2024 12:28 AM EDT Waived Testing in the ED is performed under the ED CLIA certificate #[id number]. us Marky Tavares MD LAB BLOOD ORDERABLES Final Res ult [facility] ([facility]) [address] [place] [address] * High Sensitivity Troponin I (11/12/2024 6:28 PM EDT) [facility] High Sensitivity Troponin I 2 <15 ng/L 11/12/2024 7:02 PM EDT [facility] ([facility]) Blood Venous blood specimen / Unknown Existing Catheter / Unknown 11/12/2024 6:28 PM EDT 11/12/2024 6:30 PM EDT Marky Tavares MD LAB BLOOD ORDERABLES Final Res ult Performing Organization Address City/[facility]/ZIP Co de Phone Number [facility] ([facility]) [address] [place] [address] * (ABNORMAL) POCT glucose meter (11/12/2024 6:18 PM EDT) [facility] Glucose POC 147(H) 70 - 105 mg/dL 11/12/2024 6:37 PM EDT [facility] ([facility]) Comment:[email or web address] Blood Capillary blood specimen / Unknown 11/12/2024 6:18 PM EDT 11/12/2024 6:37 PM EDT Narrative [facility] ([facility]) - 11/12/2024 6:37 PM EDT Waived Testing in the ED is performed under the ED CLIA certificate #[id number]. us Marky Tavares MD LAB BLOOD ORDERABLES Final Res ult Performing Organization Address City/[facility]/ZIP Co de Phone Number [facility] ([facility]) [address] [place] [address] * ECG 12 lead (11/12/2024 1:41 PM EDT) Ventricular Rate 73 BPM GE MUSE Atrial Rate 73 BPM GE MUSE [place] Interval 156 ms GE MUSE QRS DURATION 88 ms GE MUSE QT Interval 414 ms GE MUSE QTC CALCULATION(BAZE TT) 456 ms GE MUSE P [place] 65 degrees GE MUSE R-[place] 46 degrees GE MUSE T Wave [place] 61 degrees GE MUSE 11/12/2024 1:35 PM EDT 11/12/2024 7:44 PM EDT Impressions GE MUSE - 11/12/2024 7:44 PM EDT Normal sinus rhythm Normal ECG When compared with ECG of 11-NOV-2024 18:10, no significant change was noted Confirmed by Griffin Diaz ([id number]) on 11/12/2024 7:44:39 PM Narrative Procedure Note Jonelle Sierra MD - 11/12/2024 IMPRESSION: Normal sinus rhythm Normal ECG When compared with ECG of 11-NOV-2024 18:10, no significant change was noted Confirmed by Griffin Diaz ([id number]) on 11/12/2024 7:44:39 PM us Marky Tavares MD ECG ORDERABLES Final Result GE MUSE * High Sensitivity Troponin I (11/12/2024 1:34 PM EDT) Pathologist [facility] High Sensitivity Troponin I 3 <15 ng/L 11/12/2024 2:13 PM EDT [facility] ([facility]) Blood Venous blood specimen / Unknown Existing Catheter / Unknown 11/12/2024 1:34 PM EDT 11/12/2024 1:42 PM EDT Marky Tavares MD LAB BLOOD ORDERABLES Final Res ult [facility] ([facility]) [address] [place] [address] * High Sensitivity Troponin I (11/12/2024 10:56 AM EDT) Pathologist [facility] High Sensitivity Troponin I 2 <15 ng/L 11/12/2024 11:33 AM EDT [facility] ([facility]) Blood Venous blood specimen / Unknown Existing Catheter / Unknown 11/12/2024 10:56 AM EDT 11/12/2024 11:03 AM EDT Marky Tavares MD LAB BLOOD ORDERABLES Final Res ult Performing Organization Address City/[facility]/ZIP Co de Phone Number [facility]) [address] [place] [address] * POCT glucose meter (11/12/2024 10:55 AM EDT) [facility] Glucose POC 82 70 - 105 mg/dL 11/13/2024 8:12 AM EDT [facility]) Comment:[email or web address] Blood Capillary blood specimen / Unknown 11/12/2024 10:55 AM EDT 11/13/2024 8:12 AM EDT Narrative [facility]) - 11/13/2024 8:12 AM EDT Waived Testing in the ED is performed under the ED CLIA certificate #[id number]. us Marky Tavares MD LAB BLOOD ORDERABLES Final Res ult Performing Organization Address City/[facility] Co de Phone Number [facility]) [address] [place] [address] * High Sensitivity Troponin I (11/12/2024 6:30 AM EDT) [facility] High Sensitivity Troponin I 3 <15 ng/L 11/12/2024 7:12 AM EDT [facility] ([facility]) Blood Venous blood specimen / Unknown Existing Catheter / Unknown 11/12/2024 6:30 AM EDT 11/12/2024 6:39 AM EDT us Marky Tavares MD LAB BLOOD ORDERABLES Final Res ult [facility] ([facility]) [address] [place] [address] * (ABNORMAL) Basic metabolic panel (11/12/2024 6:30 AM EDT) Sodium 140 136 - 145 mmol/L 11/12/2024 7:12 AM EDT [facility] ([facility]) Potassium 3.9 3.5 - 5.1 mmol/L 11/12/2024 7:12 AM EDT [facility] ([facility]) Chloride 108(H) 98 - 107 mmol/L 11/12/2024 7:12 AM EDT [facility] ([facility]) CO2 26 21 - 31 mmol/L 11/12/2024 7:12 AM EDT [facility] ([facility]) BUN 10 7 - 25 mg/dL 11/12/2024 7:12 AM EDT [facility] ([facility]) Creatinine 0.67 0.60 - 1.20 mg/dL 11/12/2024 7:12 AM EDT [facility] ([facility]) Glucose 88 70 - 100 mg/dL 11/12/2024 7:12 AM EDT [facility] ([facility]) Calcium 8.5(L) 8.6 - 10.3 mg/dL 11/12/2024 7:12 AM EDT [facility] ([facility]) Anion Gap 10 7 - 20 mmol/L 11/12/2024 7:12 AM EDT [facility] ([facility]) eGFR 116.8 >60.0 mL/min/1. 73m*2 11/12/2024 7:12 AM EDT [facility] ([facility]) Comment:[facility] s estimated glomerular filtration rate (eGFR) [...] any one group of individuals. BUN/Creatinine Ratio 14.9 10/17 7:12 AM EDT [facility] ([facility]) Blood Venous blood specimen / Unknown Existing Catheter / Unknown 11/12/2024 6:30 AM EDT 11/12/2024 6:39 AM EDT us Marky Tavares MD LAB BLOOD ORDERABLES Final Res ult [facility] ([facility]) [address] [place] [address] * (ABNORMAL) CBC (11/12/2024 6:30 AM EDT) Auto WBC 3.43(L) 4.00 - 10.60 10*3/uL 11/12/2024 6:48 AM EDT [facility] ([facility]) RBC 2.87(L) 3.80 - 5.00 10*6/uL 11/12/2024 6:48 AM EDT [facility] ([facility]) Hemoglobin 8.6(L) 12.0 - 15.0 g/dL 11/12/2024 6:48 AM EDT [facility] ([facility]) Hematocrit 26.0(L) 36.0 - 45.0 % 11/12/2024 6:48 AM EDT [facility] ([facility]) MCV 90.6 82.0 - 98.0 fL 11/12/2024 6:48 AM EDT [facility] ([facility]) MCH 30.0 27.0 - 33.0 pg 11/12/2024 6:48 AM EDT [facility] ([facility]) MCHC 33.1 32.0 - 35.0 g/dL 11/12/2024 6:48 AM EDT [facility] ([facility]) RDW 14.6 11.5 - 15.0 % 11/12/2024 6:48 AM EDT [facility] ([facility]) Platelets 247 150 - 400 10*3/uL 11/12/2024 6:48 AM EDT [facility] ([facility]) Blood Venous blood specimen / Unknown Existing Catheter / Unknown 11/12/2024 6:30 AM EDT 11/12/2024 6:39 AM EDT Marky Tavares MD LAB BLOOD ORDERABLES Final Res ult [facility] ([facility]) [address] [place] [address] * POCT glucose meter (11/12/2024 6:27 AM EDT) Glucose POC 97 70 - 105 mg/dL 11/12/2024 6:39 AM EDT [facility] ([facility]) Comment:[email or web address] Blood Capillary blood specimen / Unknown 11/12/2024 6:27 AM EDT 11/12/2024 6:39 AM EDT Narrative [facility] ([facility]) - 11/12/2024 6:39 AM EDT Waived Testing in the ED is performed under the ED CLIA certificate #[id number]. Marky Tavares MD LAB BLOOD ORDERABLES Final Res ult Performing Organization Address City/[facility]/ZIP Co de Phone Number [facility]) [address] [place] [address] * High Sensitivity Troponin I (11/12/2024 12:00 AM EDT) High Sensitivity Troponin I 3 <15 ng/L 11/12/2024 12:43 AM EDT [facility] ([facility]) Blood Venous blood specimen / Unknown Existing Catheter / Unknown 11/12/2024 11/12/2024 12:12 AM EDT Marky Tavares MD LAB BLOOD ORDERABLES Final Res ult [facility] ([facility]) [address] [place] [address] * POCT glucose meter (11/11/2024 11:56 PM EDT) Glucose POC 82 70 - 105 mg/dL 11/12/2024 12:10 AM EDT [facility] ([facility]) Comment:[email or web address] Blood Capillary blood specimen / Unknown 11/11/2024 11:56 PM EDT 11/12/2024 12:10 AM EDT Narrative [facility] ([facility]) - 11/12/2024 12:10 AM EDT Waived Testing in the ED is performed under the ED CLIA certificate #[id number]. us Marky Tavares MD LAB BLOOD ORDERABLES Final Res ult [facility] ([facility]) [address] [place] [address] * CTA Chest W IV Contrast (11/11/2024 8:55 PM EDT) Anatomical Region Laterality Modality Body, Chest Computed Tomogra phy 11/11/2024 9:09 PM EDT Impressions 11/11/2024 10:51 PM EDT No evidence of pulmonary embolism or other acute intrathoracic process. Approved by:Claus Sams11/11/2024 9:16 PM. IRebecca,have reviewed the image(s) and agree with the findings in this report. Electronically signed: Rebecca Solano. Narrative 11/11/2024 10:51 PM EDT CTA CHEST W IV CONTRAST HISTORY: Chest pain and shortness of breath. COMPARISON: None. TECHNIQUE: Contiguous axial images are obtained of the Chest with 100 mL of Omnipaque 350 IV contrast. Coronal and sagittal reconstructions were performed and reviewed. Sagittal and coronal reformatted images with 3-D Maximum intensity projection reconstructions constructed under concurrent physician supervision on a separate workstation. Automatic exposure control was utilized. All CT scans at this facility use dose modulation, iterative reconstruction, and/or weight based dosing when appropriate to reduce radiation dose to as low as reasonably achievable. FINDINGS: LUNGS/PLEURA: The airways are patent. No pneumothorax or pleural effusion. No focal consolidation. Mild bibasilar dependent atelectasis. HEART/VESSELS/MEDIASTINUM: No cardiomegaly or pericardial effusion. The aorta is nonaneurysmal and without dissection. The pulmonary trunk is non-dilated. No filling defects of the main pulmonary arteries, lobar branches, or segmental branches to suggest emboli. No significant coronary artery calcifications. No enlarged mediastinal or hilar lymph nodes. Right IJ central venous catheter terminates in the right atrium. LOWER NECK AND UPPER ABDOMEN: The visualized thyroid is unremarkable. No acute abnormality within the visualized abdomen. Similar appearance of numerous hypoattenuating hepatic lesions, larger of which represent simple cysts, and smaller of which are too small to characterize. Postoperative changes of the stomach compatible with gastric bypass. MUSCULOSKELETAL: No acute osseous abnormality. Procedure Note Rebecca Solano MD - 11/11/2024 CTA CHEST W IV CONTRAST HISTORY: Chest pain and shortness of breath. COMPARISON: None. TECHNIQUE: Contiguous axial images are obtained of the Chest with 100 mLof Omnipaque 350 IV contrast. Coronal and sagittal reconstructions wereperformed and reviewed. Sagittal and coronal reformatted images with 3-D Maximumintensity projection reconstructions constructed under concurrent physiciansupervision on a separate workstation. Automatic exposure control was utilized. All CTscans at this facility use dose modulation, iterative reconstruction, and/orweight based dosing when appropriate to reduce radiation dose to as low asreasonably achievable. FINDINGS: LUNGS/PLEURA: The airways are patent. No pneumothorax or pleural effusion. No focal consolidation. Mild bibasilar dependent atelectasis. HEART/VESSELS/MEDIASTINUM: No cardiomegaly or pericardial effusion. The aorta is nonaneurysmal andwithout dissection. The pulmonary trunk is non-dilated. No filling defects of themain pulmonary arteries, lobar branches, or segmental branches to suggestemboli. No significant coronary artery calcifications. No enlarged mediastinal orhilar lymph nodes. Right IJ central venous catheter terminates in the rightatrium. LOWER NECK AND UPPER ABDOMEN: The visualized thyroid is unremarkable. No acute abnormality within the visualized abdomen. Similar appearance of numerous hypoattenuatinghepatic lesions, larger of which represent simple cysts, and smaller of which aretoo small to characterize. Postoperative changes of the stomach compatiblewith gastric bypass. MUSCULOSKELETAL: No acute osseous abnormality. IMPRESSION: No evidence of pulmonary embolism or other acute intrathoracic process. Approved by:Claus Sams11/11/2024 9:16 PM. I, Rebecca Solano,have reviewed the image(s) and agree with the findingsin this report. Electronically signed: Rebecca Solano. Marky Tavares MD IMG CT PROCEDURES Final Result * ECG 12 lead (11/11/2024 6:15 PM EDT) Pathologist [facility] Ventricular Rate 89 BPM GE MUSE Atrial Rate 89 BPM GE MUSE NJ Interval 142 ms GE MUSE QRS DURATION 88 ms GE MUSE QT Interval 392 ms GE MUSE QTC CALCULATION(BAZE TT) 476 ms GE MUSE P [place] 64 degrees GE MUSE R-[place] 21 degrees GE MUSE T Wave [place] 50 degrees GE MUSE 11/11/2024 6:10 PM EDT 11/12/2024 1:21 PM EDT Impressions GE MUSE - 11/12/2024 1:21 PM EDT Sinus rhythm with Premature supraventricular complexes Otherwise normal ECG When compared with ECG of 10-NOV-2024 15:02, Premature supraventricular complexes are now Present Confirmed by Juan SIERRA, JONELLE Harmon ([id number]) on 11/12/2024 1:21:31 PM Narrative Procedure Note Jonelle Sierra MD - 11/12/2024 IMPRESSION: Sinus rhythm with Premature supraventricular complexes Otherwise normal ECG When compared with ECG of 10-NOV-2024 15:02, Premature supraventricular complexes are now Present Confirmed by Juan SIERRA SAMER J. ([id number]) on 11/12/2024 1:21:31 PM Marky Tavares MD ECG ORDERABLES Final Result GE MUSE * High Sensitivity Troponin I (11/11/2024 6:14 PM EDT) [facility] High Sensitivity Troponin I <2 <15 ng/L 11/11/2024 7:54 PM EDT [facility] ([facility]) Blood Venous blood specimen / Unknown Existing Catheter / Unknown 11/11/2024 6:14 PM EDT 11/11/2024 6:24 PM EDT us Marky Tavares MD LAB BLOOD ORDERABLES Final Res ult [facility] ([facility]) [address] [place] [address] * (ABNORMAL) POCT glucose meter (11/11/2024 5:16 PM EDT) Glucose POC 162(H) 70 - 105 mg/dL 11/11/2024 5:27 PM EDT [facility] ([facility]) Comment:[email or web address] Blood Capillary blood specimen / Unknown 11/11/2024 5:16 PM EDT 11/11/2024 5:27 PM EDT Narrative [facility] ([facility]) - 11/11/2024 5:27 PM EDT Waived Testing in the ED is performed under the ED CLIA certificate #[id number]. us Marky Tavares MD LAB BLOOD ORDERABLES Final Res ult Performing Organization Address [facility] Co de Phone Number [facility] ([facility]) [address] [place] [address] * (ABNORMAL) C-reactive protein (11/11/2024 3:29 PM EDT) CRP 13.4(H) <=5.0 mg/L 11/13/2024 10:24 AM EDT [facility] ([facility]) Comment:Testing performed us ing a new methodology, turbidimetry. Normal ranges have been updated. Old normal range was <8 mg/L. Blood Venous blood specimen / Unknown Existing Catheter / Unknown 11/11/2024 3:29 PM EDT 11/11/2024 3:42 PM EDT us Jonelle Sierra MD LAB BLOOD ORDERABLES Final Res ult [facility] ([facility]) [address] [facility] [place] [address] * (ABNORMAL) POCT glucose meter (11/11/2024 12:49 PM EDT) Glucose POC 138(H) 70 - 105 mg/dL 11/11/2024 1:00 PM EDT [facility] ([facility]) Comment:[email or web address] Blood Capillary blood specimen / Unknown 11/11/2024 12:49 PM EDT 11/11/2024 1:00 PM EDT Narrative [facility] ([facility]) - 11/11/2024 1:00 PM EDT Waived Testing in the ED is performed under the ED CLIA certificate #[id number]. us aMrky Tavares MD LAB BLOOD ORDERABLES Final Res ult [facility]) [address] [place] [address] * (ABNORMAL) Sedimentation rate (11/11/2024 6:39 AM EDT) Pathologist [facility] Sed Rate 20(H) <20 mm/hr 11/11/2024 12:20 PM EDT [facility] ([facility]) Blood Venous blood specimen / Unknown Existing Catheter / Unknown 11/11/2024 6:39 AM EDT 11/11/2024 6:43 AM EDT us Jonelle Sierra MD LAB BLOOD ORDERABLES Final Res ult [facility]) [address] [place] [address] * (ABNORMAL) Basic metabolic panel (11/11/2024 6:39 AM EDT) Sodium 137 136 - 145 mmol/L 11/11/2024 7:08 AM EDT [facility] ([facility]) Potassium 3.7 3.5 - 5.1 mmol/L 11/11/2024 7:08 AM EDT [facility] ([facility]) Chloride 104 98 - 107 mmol/L 11/11/2024 7:08 AM EDT [facility] ([facility]) CO2 27 21 - 31 mmol/L 11/11/2024 7:08 AM EDT [facility] ([facility]) BUN 13 7 - 25 mg/dL 11/11/2024 7:08 AM EDT [facility] ([facility]) Creatinine 0.68 0.60 - 1.20 mg/dL 11/11/2024 7:08 AM EDT [facility] ([facility]) Glucose 117(H) 70 - 100 mg/dL 11/11/2024 7:08 AM EDT [facility] ([facility]) Calcium 8.3(L) 8.6 - 10.3 mg/dL 11/11/2024 7:08 AM EDT [facility] ([facility]) Anion Gap 10 7 - 20 mmol/L 11/11/2024 7:08 AM T [facility] ([facility]) eGFR 116.4 >60.0 mL/min/1. 73m*2 11/11/2024 7:08 AM T [facility] ([facility]) Comment:[facility] s estimated glomerular filtration rate (eGFR) [...] any one group of individuals. BUN/Creatinine Ratio 19.1 10/17 7:08 AM EDT [facility] ([facility]) Blood Venous blood specimen / Unknown Existing Catheter / Unknown 11/11/2024 6:39 AM EDT 11/11/2024 6:43 AM EDT us Marky Tavares MD LAB BLOOD ORDERABLES Final Res ult [facility] ([facility]) [address] [place] [address] * (ABNORMAL) CBC (11/11/2024 6:39 AM EDT) Auto WBC 3.76(L) 4.00 - 10.60 10*3/uL 11/11/2024 6:56 AM EDT [facility] ([facility]) RBC 2.95(L) 3.80 - 5.00 10*6/uL 11/11/2024 6:56 AM EDT [facility] ([facility]) Hemoglobin 8.8(L) 12.0 - 15.0 g/dL 11/11/2024 6:56 AM EDT [facility] ([facility]) Hematocrit 26.7(L) 36.0 - 45.0 % 11/11/2024 6:56 AM EDT [facility] ([facility]) MCV 90.5 82.0 - 98.0 fL 11/11/2024 6:56 AM EDT [facility] ([facility]) MCH 29.8 27.0 - 33.0 pg 11/11/2024 6:56 AM EDT [facility] ([facility]) MCHC 33.0 32.0 - 35.0 g/dL 11/11/2024 6:56 AM EDT [facility] ([facility]) RDW 14.4 11.5 - 15.0 % 11/11/2024 6:56 AM EDT [facility] ([facility]) Platelets 243 150 - 400 10*3/uL 11/11/2024 6:56 AM EDT [facility] ([facility]) Blood Venous blood specimen / Unknown Existing Catheter / Unknown 11/11/2024 6:39 AM EDT 11/11/2024 6:43 AM EDT us Marky Tavares MD LAB BLOOD ORDERABLES Final Res ult [facility]) [address] [place] [address] * (ABNORMAL) POCT glucose meter (11/11/2024 6:35 AM EDT) Glucose POC 125(H) 70 - 105 mg/dL 11/11/2024 6:45 AM EDT [facility] ([facility]) Comment:[email or web address] Blood Capillary blood specimen / Unknown 11/11/2024 6:35 AM EDT 11/11/2024 6:45 AM EDT [facility] ([facility]) - 11/11/2024 6:45 AM EDT Waived Testing in the ED is performed under the ED CLIA certificate #[id number]. Marky Tavares MD LAB BLOOD ORDERABLES Final Res ult [facility]) [address] [place] [address] * (ABNORMAL) POCT glucose meter (11/11/2024 12:55 AM EDT) Glucose POC 138(H) 70 - 105 mg/dL 11/11/2024 1:07 AM EDT [facility] ([facility]) Comment:[email or web address] Blood Capillary blood specimen / Unknown 11/11/2024 12:55 AM EDT 11/11/2024 1:07 AM EDT [facility] ([facility]) - 11/11/2024 1:07 AM EDT Waived Testing in the ED is performed under the ED CLIA certificate #[id number]. Marky Tavares MD LAB BLOOD ORDERABLES Final Res ult [facility]) [address] [place], [place] [id number] * High Sensitivity Troponin I (11/10/2024 8:50 PM EDT) High Sensitivity Troponin I 3 <15 ng/L 11/10/2024 9:27 PM EDT [facility] ([facility]) Blood Venous blood specimen / Unknown Existing Catheter / Unknown 11/10/2024 8:50 PM EDT 11/10/2024 8:53 PM EDT us Bacilio Conway MD LAB BLOOD ORDERABLES Final Resu lt Performing Organization Address City/[facility]/ZIP Co de Phone Number [facility] ([facility]) [address] [place] [address] * (ABNORMAL) POCT glucose meter (11/10/2024 6:24 PM EDT) Pathologist [facility] Glucose POC 122(H) 70 - 105 mg/dL 11/10/2024 6:35 PM EDT [facility] ([facility]) Comment:[email or web address] Blood Capillary blood specimen / Unknown 11/10/2024 6:24 PM EDT 11/10/2024 6:35 PM EDT Narrative [facility] ([facility]) - 11/10/2024 6:35 PM EDT Waived Testing in the ED is performed under the ED CLIA certificate #[id number]. us Marky Tavares MD LAB BLOOD ORDERABLES Final Res ult Performing Organization Address [facility]/ZIP Co de Phone Number [facility] ([facility]) [address] [place] [address] * ECG 12 lead (11/10/2024 3:11 PM EDT) Ventricular Rate 82 BPM GE MUSE Atrial Rate 82 BPM GE MUSE NJ Interval 142 ms GE MUSE QRS DURATION 92 ms GE MUSE QT Interval 408 ms GE MUSE QTC CALCULATION(BAZE TT) 476 ms GE MUSE P [place] 60 degrees GE MUSE R-[place] 33 degrees GE MUSE T Wave [place] 61 degrees GE MUSE 11/10/2024 3:02 PM EDT 11/11/2024 12:45 PM EDT Impressions GE MUSE - 11/11/2024 12:45 PM EDT Normal sinus rhythm Normal ECG When compared with ECG of 10-NOV-2024 07:58, (unconfirmed) No significant change was found Confirmed by Juan SIERRA, JONELLE Harmon ([id number]) on 11/11/2024 12:45:54 PM Narrative Procedure Note Jonelle Sierra MD - 11/11/2024 IMPRESSION: Normal sinus rhythm Normal ECG When compared with ECG of 10-NOV-2024 07:58, (unconfirmed) No significant change was found Confirmed by Juan SIERRA SAMER J. ([id number]) on 11/11/2024 12:45:54 PM Marky Tavares MD ECG ORDERABLES Final Result GE MUSE * High Sensitivity Troponin I (11/10/2024 2:22 PM EDT) [facility] High Sensitivity Troponin I <2 <15 ng/L 11/10/2024 3:16 PM EDT [facility] ([facility]) Blood Venous blood specimen / Unknown Existing Catheter / Unknown 11/10/2024 2:22 PM EDT 11/10/2024 2:28 PM EDT Bacilio Conway MD LAB BLOOD ORDERABLES Final Resu lt Performing Organization Address City/[facility]/ZIP Co de Phone Number [facility] ([facility]) [address] [place] [address] * (ABNORMAL) POCT glucose meter (11/10/2024 1:06 PM EDT) [facility] Glucose POC 115(H) 70 - 105 mg/dL 11/10/2024 1:17 PM EDT [facility] ([facility]) Comment:[email or web address] Blood Capillary blood specimen / Unknown 11/10/2024 1:06 PM EDT 11/10/2024 1:17 PM EDT Narrative [facility] ([facility]) - 11/10/2024 1:17 PM EDT Waived Testing in the ED is performed under the ED CLIA certificate #[id number]. Marky Tavares MD LAB BLOOD ORDERABLES Final Res ult [facility] ([facility]) [address] [place] [address] * LEXISCAN STRESS MYOCARDIAL PERFUSION IMAGING (11/10/2024 11:23 AM EDT) Anatomical Region Laterality Modality Other 11/10/2024 11:1 4 AM EDT Addenda Addendum by Mitul Moya MD on 11/10/2024 4:35 PM EDT 1 1 [facility] Heart Station [address] [place] [place] [address] [phone] (fax) Lexiscan Stress Myocardial Perfusion Imaging- [facility] Name: JUAN KONG Study Date: 11/10/2024 11:14 AM B/P: / HR: Date of : 1990 Location: [facility] Height: 65 in. Age: 34 year(s) Patient Room: 3118 Weight: 182.1 lb. Gender: Female Patient Status: OutPt BSA: 1.9 m2 Indication: Chest Pain Examination: Lexiscan Stress Myocardial Perfusion Imaging Image Quality: Good Patient Consent: Procedure explained to patient, information sheet reviewed Clinical Data Smoking: Non Smoker Hypertension: Yes Dyslipidemia: Yes Prior Heart Failure: Yes Diabetes: Yes Physical Activity: Light level of activity Chest Pain: Yes Dyspnea: No Comment: gastroparesis, sleeve gastrectomy, S/P SCAD type 3 , NSTEMI, asthma, RICHAR, IBS Department Discharge: Patient exited Heart Station asymptomatic Medication Category Medication Name Dose Comment General Medications Albuterol (Proventil) General Medications Aspirin (Aspir) General Medications Clopidogrel (Plavix) General Medications Enoxaparin (Lovenox) General Medications Insuline Lispro (Humalog) General Medications Metoprolol General Medications Ranexa General Medications Rosuvastatin (Crestor) Conclusions There was excessive artifact/ hot spot ( due to port) on stress images overlaping with the heart and causing significant count reduction precluding accurate assessment of ischemia Normal global left ventricular function with EF 73%. TID index score is 1.10 and No transient ischemia dilatation. Negative Lexiscan ECG stress test for ischemia. No coronary artery calcifications seen on attenuation gated CT scan. Findings Technique IV Lexiscan Nuclear cardiac stress scan with electrocardiographic analysis and myocardial perfusion imaging was performed due to difficulty walking. 0.4 mg IV Lexiscan was given over 10-15 seconds. A One-Day SPECT Rest/Gated Stress protocol was performed. Tc99m Sestamibi with a dose of 10.2 mCi was injected intravenously 1 hour prior to rest imaging. Tc99m Sestamibi with a dose of 33.4 mCi was injected intravenously immediately after Lexiscan infusion. Computer assisted reconstruction was performed by standard Gated SPECT techniques for the generation of reconstructed horizontal, vertical long-axis, and short axis projections. Patients are given a caffeinated beverage after stress portion of test. Outpatients are also given a light snack. Stress Test Findings The patient performed isometric for 03:02 minutes by the Lexiscan protocol and achieved a heart rate of 98 bpm or 52 % of the maximal predicted heart rate. The pharmacologic stress was terminated due to Stress termination reason: Infusion complete. Heart rate response to exercise was Reduced heart rate response. The resting blood pressure was 105/71 and increased to 105/71, which is a Normal resting BP - blunted response (rest - exercise). The resting ECG demonstrates: Normal sinus rhythm. The patient had Limiting chest pain during the study. There were no ST changes at maximal exercise. Perfusion and Wall Motion Findings The transient ischemic dilation (TID) ratio is 1.10. The gated stress calculated left ventricular ejection fraction is 73%. Wall motion with stress: The gated wall motion analysis with stress reveals normal global and regional wall motion with a calculated left ventricular ejection fraction of 73%. s sp@c Nuclear Protocol Details Stress Examination Details Type of Stress: Lexiscan Exercise Time: 03:02 Device: Treadmill HR [place] Used: 21.00 % HR Recovery: 2 bpm Frequent VE: 1 VE/min Resolution: Persisted Max HR: 98 bpm Target HR: 157 bpm Achieved: No Resting HR: 68 bpm Max Predicted HR: 185 bpm Achv. of Max Predicted: 52 % BP Max: 105/71 BP at Rest: 105/71 Max RPP: 52502 mmHg*bpm Max ST Lead: III Max ST Phase: Infusion Stage No. in Phase: [address] Stage: INFUS2:[address] Amplitude: -0.[address] Taney: -0.670 mV/s Max ST Time in Phase: 02:30 Artifact Count: 0 PSVC Count: 5 PVC Count: 7 Chest Pain: Limiting Pharmalogical Stress Examination Protocol Stage Name Time in Stage Load Heart Rate BP Dosage ST Level Cardiac Arrhy Cardiac Symp. Other Pain Changes Symptom Supine 03:14 1.00 mets 68 bpm 105/71 0.600 mm Infusion 30 seconds 00:30 1.00 mets 67 bpm 105/71 0.250 mm [id number] 00:30 1.00 mets 90 bpm 102/70 0.400 mm INFUS1:30 00:30 1.00 mets 94 bpm 102/70 0.250 mm INFUS2:00 00:30 1.00 mets 92 bpm 102/70 0.250 mm INFUS2:30 00:30 1.00 mets 94 bpm 105/69 -0.150 mm INFUS3:00 00:32 1.00 mets 90 bpm 105/69 0.300 mm 0-1 min 01:00 1.00 mets 88 bpm 105/69 0.400 mm 1-2 min 01:00 1.00 mets 88 bpm 101/66 0.300 mm 2-3 min 01:00 1.00 mets 83 bpm 101/66 0.400 mm 3-4 min 01:00 1.00 mets 86 bpm 105/67 0.450 mm 4-5 min 01:00 1.00 mets 88 bpm 105/67 0.400 mm 5-6 min 00:50 1.00 mets 83 bpm 103/63 0.350 mm 6-7 min 00:09 1.00 mets 80 bpm 103/63 0.400 mm Assessment HR Response: Reduced heart rate response BP Response: Normal resting BP - blunted response Test Reason: Chest Discomfort Terminate Reason: Stress termination reason: Infusion complete Resting ECG: Normal sinus rhythm ST Changes: no Chest Pain: Limiting Arrhythmias: Arrhythmias seen: ventricular premature beats Functional Capacity: Functional capacity is not determined Exercise Interpretation: Normal Lexiscan EKG stress test Overall Impression: Overall interpretation: Normal ECG stress test LV Function: REST STRESS 0 - Normal, 1 - Hypokinesia, 2 - Akinesia, 3 - Dyskinesia, 4 - Aneurysmal Procedure Staff Reading Group: [facility] Referring Physician: THOMAS CALIX Stress Classifications Officer Cc/Cm: [place] Supervisor Filtration: Lauren Sanchez Ordering Physician: BACILIO CONWAY Advanced Practitioner: CRISTINA Gibson Nurse: Evelyne Abrams Narrative 11/10/2024 4:35 PM EDT 1 1 [facility] Heart Station [address] [place] [address] [phone] (fax) Lexiscan Stress Myocardial Perfusion Imaging- [facility] Name: JUAN KONG Study Date: 11/10/2024 11:14 AM B/P: / HR: Date of : 1990 Location: [facility] Height: 65 in. Age: 34 year(s) Patient Room: 3118 Weight: 182.1 lb. Gender: Female Patient Status: OutPt BSA: 1.9 m2 Indication: Chest Pain Examination: Lexiscan Stress Myocardial Perfusion Imaging Image Quality: Good Patient Consent: Procedure explained to patient, information sheet reviewed Clinical Data Smoking: Non Smoker Hypertension: Yes Dyslipidemia: Yes Prior Heart Failure: Yes Diabetes: Yes Physical Activity: Light level of activity Chest Pain: Yes Dyspnea: No Comment: gastroparesis, sleeve gastrectomy, S/P SCAD type 3 , NSTEMI, asthma, RICHAR, IBS Department Discharge: Patient exited Heart Station asymptomatic Medication Category Medication Name Dose Comment General Medications Albuterol (Proventil) General Medications Aspirin (Aspir) General Medications Clopidogrel (Plavix) General Medications Enoxaparin (Lovenox) General Medications Insuline Lispro (Humalog) General Medications Metoprolol General Medications Ranexa General Medications Rosuvastatin (Crestor) Conclusions There was excessive artifact/ hot spot ( due to port) on stress images overlaping with the heart and causing significant count reduction precluding accurate assessment of ischemia Normal global left ventricular function with EF 73%. TID index score is 1.10 and No transient ischemia dilatation. Negative Lexiscan ECG stress test for ischemia. No coronary artery calcifications seen on attenuation gated CT scan. Findings Technique IV Lexiscan Nuclear cardiac stress scan with electrocardiographic analysis and myocardial perfusion imaging was performed due to difficulty walking. 0.4 mg IV Lexiscan was given over 10-15 seconds. A One-Day SPECT Rest/Gated Stress protocol was performed. Tc99m Sestamibi with a dose of 10.2 mCi was injected intravenously 1 hour prior to rest imaging. Tc99m Sestamibi with a dose of 33.4 mCi was injected intravenously immediately after Lexiscan infusion. Computer assisted reconstruction was performed by standard Gated SPECT techniques for the generation of reconstructed horizontal, vertical long-axis, and short axis projections. Patients are given a caffeinated beverage after stress portion of test. Outpatients are also given a light snack. Stress Test Findings The patient performed isometric for 03:02 minutes by the Lexiscan protocol and achieved a heart rate of 98 bpm or 52 % of the maximal predicted heart rate. The pharmacologic stress was terminated due to Stress termination reason: Infusion complete. Heart rate response to exercise was Reduced heart rate response. The resting blood pressure was 105/71 and increased to 105/71, which is a Normal resting BP - blunted response (rest - exercise). The resting ECG demonstrates: Normal sinus rhythm. The patient had Limiting chest pain during the study. There were no ST changes at maximal exercise. Perfusion and Wall Motion Findings The transient ischemic dilation (TID) ratio is 1.10. The gated stress calculated left ventricular ejection fraction is 73%. Perfusion after stress: The distribution of Tc99m Sestamibi following exercise is normal. Perfusion at rest: The distribution of Tc99m Sestamibi at rest is normal. Wall motion with stress: The gated wall motion analysis with stress reveals normal global and regional wall motion with a calculated left ventricular ejection fraction of 73%. s sp@c Nuclear Protocol Details Stress Examination Details Type of Stress: Lexiscan Exercise Time: 03:02 Device: Treadmill HR [place] Used: 21.00 % HR Recovery: 2 bpm Frequent VE: 1 VE/min Resolution: Persisted Max HR: 98 bpm Target HR: 157 bpm Achieved: No Resting HR: 68 bpm Max Predicted HR: 185 bpm Achv. of Max Predicted: 52 % BP Max: 105/71 BP at Rest: 105/71 Max RPP: 42219 mmHg*bpm Max ST Lead: III Max ST Phase: Infusion Stage No. in Phase: [address] Stage: INFUS2:[address] Amplitude: -0.[address] Taney: -0.670 mV/s Max ST Time in Phase: 02:30 Artifact Count: 0 PSVC Count: 5 PVC Count: 7 Chest Pain: Limiting Pharmalogical Stress Examination Protocol Stage Name Time in Stage Load Heart Rate BP Dosage ST Level Cardiac Arrhy Cardiac Symp. Other Pain Changes Symptom Supine 03:14 1.00 mets 68 bpm 105/71 0.600 mm Infusion 30 seconds 00:30 1.00 mets 67 bpm 105/71 0.250 mm [id number] 00:30 1.00 mets 90 bpm 102/70 0.400 mm INFUS1:30 00:30 1.00 mets 94 bpm 102/70 0.250 mm INFUS2:00 00:30 1.00 mets 92 bpm 102/70 0.250 mm INFUS2:30 00:30 1.00 mets 94 bpm 105/69 -0.150 mm INFUS3:00 00:32 1.00 mets 90 bpm 105/69 0.300 mm 0-1 min 01:00 1.00 mets 88 bpm 105/69 0.400 mm 1-2 min 01:00 1.00 mets 88 bpm 101/66 0.300 mm 2-3 min 01:00 1.00 mets 83 bpm 101/66 0.400 mm 3-4 min 01:00 1.00 mets 86 bpm 105/67 0.450 mm 4-5 min 01:00 1.00 mets 88 bpm 105/67 0.400 mm 5-6 min 00:50 1.00 mets 83 bpm 103/63 0.350 mm 6-7 min 00:09 1.00 mets 80 bpm 103/63 0.400 mm Assessment HR Response: Reduced heart rate response BP Response: Normal resting BP - blunted response Test Reason: Chest Discomfort Terminate Reason: Stress termination reason: Infusion complete Resting ECG: Normal sinus rhythm ST Changes: no Chest Pain: Limiting Arrhythmias: Arrhythmias seen: ventricular premature beats Functional Capacity: Functional capacity is not determined Exercise Interpretation: Normal Lexiscan EKG stress test Overall Impression: Overall interpretation: Normal ECG stress test Region Quantitation LAD Circumflex RCA Total Summed Score Stress 0 0 0 0 Difference 0 Rest 0 0 0 0 Ischemia 0 0 0 0 Regional Score Total 0 0 0 Stress/Rest Perfusion: Rest Stress/Redistribution Difference 0 - Normal, 1 - Mild Reduction, 2 - Moderate Reduction, 3 - Severe Reduction, 4 - Absent Uptake LV Function: REST STRESS 0 - Normal, 1 - Hypokinesia, 2 - Akinesia, 3 - Dyskinesia, 4 - Aneurysmal Procedure Staff Reading Group: [facility] Referring Physician: THOMAS CALIX Stress Classifications Officer Cc/Cm: Al[place]son [place] Supervisor Filtration: Lauren Sanchez Ordering Physician: BACILIO CONWAY Advanced Practitioner: CRISTINA Gibson Nurse: Evelyne Abrams Resting Perfusion Procedure Note Mitul Moya MD - 11/10/2024 1 1 [facility] Heart Station [address] [place] [address] [phone] (fax) Lexiscan Stress Myocardial Perfusion Imaging- [facility] Name: JUAN KONG Study Date: 11/10/2024 11:14 AM B/P: / HR: Date of : 1990 Location: [facility] Height: 65 in. Age: 34 year(s) Patient Room: 3118 Weight: 182.1 lb. Gender: Female Patient Status: OutPt BSA: 1.9 m2 Indication: Chest Pain Examination: Lexiscan Stress Myocardial Perfusion Imaging Image Quality: Good Patient Consent: Procedure explained to patient, information sheet reviewed Clinical Data Smoking: Non Smoker Hypertension: Yes Dyslipidemia: Yes Prior Heart Failure: Yes Diabetes: Yes Physical Activity: Light level of activity Chest Pain: Yes Dyspnea: No Comment: gastroparesis, sleeve gastrectomy, S/P SCAD type 3 , NSTEMI, asthma, RICHAR, IBS Department Discharge: Patient exited Heart Station asymptomatic Medication Category Medication Name Dose Comment General Medications Albuterol (Proventil) General Medications Aspirin (Aspir) General Medications Clopidogrel (Plavix) General Medications Enoxaparin (Lovenox) General Medications Insuline Lispro (Humalog) General Medications Metoprolol General Medications Ranexa General Medications Rosuvastatin (Crestor) Conclusions There was excessive artifact/ hot spot ( due to port) on stress images overlaping with the heart and causing significant count reduction precluding accurate assessment of ischemia Normal global left ventricular function with EF 73%. TID index score is 1.10 and No transient ischemia dilatation. Negative Lexiscan ECG stress test for ischemia. No coronary artery calcifications seen on attenuation gated CT scan. Findings Technique IV Lexiscan Nuclear cardiac stress scan with electrocardiographic analysis and myocardial perfusion imaging was performed due to difficulty walking. 0.4 mg IV Lexiscan was given over 10-15 seconds. A One-Day SPECT Rest/Gated Stress protocol was performed. Tc99m Sestamibi with a dose of 10.2 mCi was injected intravenously 1 hour prior to rest imaging. Tc99m Sestamibi with a dose of 33.4 mCi was injected intravenously immediately after Lexiscan infusion. Computer assisted reconstruction was performed by standard Gated SPECT techniques for the generation of reconstructed horizontal, vertical long-axis, and short axis projections. Patients are given a caffeinated beverage after stress portion of test. Outpatients are also given a light snack. Stress Test Findings The patient performed isometric for 03:02 minutes by the Lexiscan protocol and achieved a heart rate of 98 bpm or 52 % of the maximal predicted heart rate. The pharmacologic stress was terminated due to Stress termination reason: Infusion complete. Heart rate response to exercise was Reduced heart rate response. The resting blood pressure was 105/71 and increased to 105/71, which is a Normal resting BP - blunted response (rest - exercise). The resting ECG demonstrates: Normal sinus rhythm. The patient had Limiting chest pain during the study. There were no ST changes at maximal exercise. Perfusion and Wall Motion Findings The transient ischemic dilation (TID) ratio is 1.10. The gated stress calculated left ventricular ejection fraction is 73%. Perfusion after stress: The distribution of Tc99m Sestamibi following exercise is normal. Perfusion at rest: The distribution of Tc99m Sestamibi at rest is normal. Wall motion with stress: The gated wall motion analysis with stress reveals normal global and regional wall motion with a calculated left ventricular ejection fraction of 73%. s sp@c Nuclear Protocol Details Stress Examination Details Type of Stress: Lexiscan Exercise Time: 03:02 Device: Treadmill HR [place] Used: 21.00 % HR Recovery: 2 bpm Frequent VE: 1 VE/min Resolution: Persisted Max HR: 98 bpm Target HR: 157 bpm Achieved: No Resting HR: 68 bpm Max Predicted HR: 185 bpm Achv. of Max Predicted: 52 % BP Max: 105/71 BP at Rest: 105/71 Max RPP: 24668 mmHg*bpm Max ST Lead: III Max ST Phase: Infusion Stage No. in Phase: [address] Stage: INFUS2:[address] Amplitude: -0.[address] Taney: -0.670 mV/s Max ST Time in Phase: 02:30 Artifact Count: 0 PSVC Count: 5 PVC Count: 7 Chest Pain: Limiting Pharmalogical Stress Examination Protocol Stage Name Time in Stage Load Heart Rate BP Dosage ST Level Cardiac Arrhy Cardiac Symp. Other Pain Changes Symptom Supine 03:14 1.00 mets 68 bpm 105/71 0.600 mm Infusion 30 seconds 00:30 1.00 mets 67 bpm 105/71 0.250 mm [id number] 00:30 1.00 mets 90 bpm 102/70 0.400 mm INFUS1:30 00:30 1.00 mets 94 bpm 102/70 0.250 mm INFUS2:00 00:30 1.00 mets 92 bpm 102/70 0.250 mm INFUS2:30 00:30 1.00 mets 94 bpm 105/69 -0.150 mm INFUS3:00 00:32 1.00 mets 90 bpm 105/69 0.300 mm 0-1 min 01:00 1.00 mets 88 bpm 105/69 0.400 mm 1-2 min 01:00 1.00 mets 88 bpm 101/66 0.300 mm 2-3 min 01:00 1.00 mets 83 bpm 101/66 0.400 mm 3-4 min 01:00 1.00 mets 86 bpm 105/67 0.450 mm 4-5 min 01:00 1.00 mets 88 bpm 105/67 0.400 mm 5-6 min 00:50 1.00 mets 83 bpm 103/63 0.350 mm 6-7 min 00:09 1.00 mets 80 bpm 103/63 0.400 mm Assessment HR Response: Reduced heart rate response BP Response: Normal resting BP - blunted response Test Reason: Chest Discomfort Terminate Reason: Stress termination reason: Infusion complete Resting ECG: Normal sinus rhythm ST Changes: no Chest Pain: Limiting Arrhythmias: Arrhythmias seen: ventricular premature beats Functional Capacity: Functional capacity is not determined Exercise Interpretation: Normal Lexiscan EKG stress test Overall Impression: Overall interpretation: Normal ECG stress test Region Quantitation LAD Circumflex RCA Total Summed Score Stress 0 0 0 0 Difference 0 Rest 0 0 0 0 Ischemia 0 0 0 0 Regional Score Total 0 0 0 Stress/Rest Perfusion: Rest Stress/Redistribution Difference 0 - Normal, 1 - Mild Reduction, 2 - Moderate Reduction, 3 - Severe Reduction, 4 - Absent Uptake LV Function: REST STRESS 0 - Normal, 1 - Hypokinesia, 2 - Akinesia, 3 - Dyskinesia, 4 - Aneurysmal Procedure Staff Reading Group: [facility] Referring Physician: THOMAS CALIX Stress Classifications Officer Cc/Cm: [place] Supervisor Filtration: Lauren Sanchez Ordering Physician: BACILIO CONWAY Advanced Practitioner: CRISTINA Gibson Nurse: Evelyne Abrams Resting Perfusion us Bacilio Conway MD CV STRESS PROCEDURES Edited Res ult - Final * XR chest 1 view (11/10/2024 9:01 AM EDT) Anatomical Region Laterality Modality Chest Computed Radiogr aphy 11/10/2024 9:02 AM EDT Impressions 11/10/2024 9:04 AM EDT * Stable right central venous catheter with tip projecting over the lower SVC. * Lungs and pleural spaces are clear. Electronically signed: Willis Simons MD. Narrative 11/10/2024 9:04 AM EDT CHEST 1 VIEW HISTORY: Central line positioning COMPARISON: 08/18/2024 Procedure Note Willis Simons MD - 11/10/2024 CHEST 1 VIEW HISTORY: Central line positioning COMPARISON: 08/18/2024 IMPRESSION: *Stable right central venous catheter with tip projecting over thelower SVC. *Lungs and pleural spaces are clear. Electronically signed: Willis Simons MD. us Marky Tavares MD IMG XR PROCEDURES Final Result * ECG 12 lead (11/10/2024 8:09 AM EDT) Ventricular Rate 69 BPM GE MUSE Atrial Rate 69 BPM GE MUSE NJ Interval 152 ms GE MUSE QRS DURATION 96 ms GE MUSE QT Interval 436 ms GE MUSE QTC CALCULATION(BAZE TT) 467 ms GE MUSE P [place] 59 degrees GE MUSE R-[place] 47 degrees GE MUSE T Wave [place] 45 degrees GE MUSE 11/10/2024 7:58 AM EDT 11/11/2024 1:19 AM EDT Impressions GE MUSE - 11/11/2024 1:19 AM EDT Normal sinus rhythm Normal ECG When compared with ECG of 09-NOV-2024 12:16, No significant change was found Confirmed by Erlin Geller ([id number]) on 11/11/2024 1:19:49 AM Narrative Procedure Note Erlin Geller MD - 11/11/2024 IMPRESSION: Normal sinus rhythm Normal ECG When compared with ECG of 09-NOV-2024 12:16, No significant change was found Confirmed by Erlin Geller ([id number]) on 11/11/2024 1:19:49 AM us Vicky Cole BUREAU DIRECTOR ECG ORDERABLES Final Result GE MUSE * High Sensitivity Troponin I (11/10/2024 7:44 AM EDT) High Sensitivity Troponin I 3 <15 ng/L 11/10/2024 8:23 AM EDT [facility] ([facility]) Blood Venous blood specimen / Unknown Existing Catheter / Unknown 11/10/2024 7:44 AM EDT 11/10/2024 7:52 AM EDT Urbano Santos MD LAB BLOOD ORDERABLES Final Re sult Performing Organization Address City/[facility] Co de Phone Number [facility] ([facility]) [address] [place] [address] * (ABNORMAL) POCT glucose meter (11/10/2024 7:39 AM EDT) Glucose POC 108(H) 70 - 105 mg/dL 11/10/2024 7:51 AM EDT [facility] ([facility]) Comment:[email or web address] Blood Capillary blood specimen / Unknown 11/10/2024 7:39 AM EDT 11/10/2024 7:51 AM EDT Narrative [facility] ([facility]) - 11/10/2024 7:51 AM EDT Waived Testing in the ED is performed under the ED CLIA certificate #[id number]. Urbano Santos MD LAB BLOOD ORDERABLES Final Re sult [facility] ([facility]) [address] [place] [address] * (ABNORMAL) POCT glucose meter (11/09/2024 9:21 PM EDT) Glucose POC 112(H) 70 - 105 mg/dL 11/09/2024 9:32 PM EDT [facility] ([facility]) Comment:[email or web address] Blood Capillary blood specimen / Unknown 11/09/2024 9:21 PM EDT 11/09/2024 9:32 PM EDT [facility] ([facility]) - 11/09/2024 9:32 PM EDT Waived Testing in the ED is performed under the ED CLIA certificate #[id number]. Urbano Santos MD LAB BLOOD ORDERABLES Final Re sult Performing Organization Address [facility] Co de Phone Number [facility] ([facility]) [address] [place] [address] * (ABNORMAL) POCT glucose meter (11/09/2024 4:12 PM EDT) Glucose POC 205(H) 70 - 105 mg/dL 11/09/2024 4:23 PM EDT [facility] ([facility]) Comment:[email or web address] Blood Capillary blood specimen / Unknown 11/09/2024 4:12 PM EDT 11/09/2024 4:23 PM EDT [facility] ([facility]) - 11/09/2024 4:23 PM EDT Waived Testing in the ED is performed under the ED CLIA certificate #[id number]. Urbano Santos MD LAB BLOOD ORDERABLES Final Re sult Performing Organization Address City/[facility]/ZIP Co de Phone Number [facility] ([facility]) [address] [place] [address] * (ABNORMAL) CBC auto differential (11/09/2024 2:09 PM EDT) Auto WBC 5.31 4.00 - 10.60 10*3/uL 11/09/2024 2:40 PM EDT [facility] ([facility]) RBC 3.22(L) 3.80 - 5.00 10*6/uL 11/09/2024 2:40 PM EDT [facility] ([facility]) Hemoglobin 9.6(L) 12.0 - 15.0 g/dL 11/09/2024 2:40 PM EDT [facility] ([facility]) Hematocrit 28.6(L) 36.0 - 45.0 % 11/09/2024 2:40 PM EDT [facility] ([facility]) MCV 88.8 82.0 - 98.0 fL 11/09/2024 2:40 PM EDT [facility] ([facility]) MCH 29.8 27.0 - 33.0 pg 11/09/2024 2:40 PM EDT [facility] ([facility]) MCHC 33.6 32.0 - 35.0 g/dL 11/09/2024 2:40 PM EDT [facility] ([facility]) RDW 14.5 11.5 - 15.0 % 11/09/2024 2:40 PM EDT [facility] ([facility]) Neutrophils % 68.7 40.0 - 72.0 % 11/09/2024 2:40 PM EDT [facility] ([facility]) Lymphocytes % 20.0 20.0 - 45.0 % 11/09/2024 2:40 PM EDT [facility] ([facility]) Monocytes % 7.9 5.0 - 12.0 % 11/09/2024 2:40 PM EDT [facility] ([facility]) Eosinophils % 2.6 0.0 - 6.0 % 11/09/2024 2:40 PM EDT [facility] ([facility]) Basophils % 0.6 0.0 - 1.0 % 11/09/2024 2:40 PM EDT [facility] ([facility]) Neutrophils Absolute 3.65 1.60 - 7.60 10*3/uL 11/09/2024 2:40 PM EDT [facility] ([facility]) Lymphocytes Absolute 1.06(L) 1.20 - 4.00 10*3/uL 11/09/2024 2:40 PM EDT [facility] ([facility]) Monocytes Absolute 0.42 0.10 - 1.00 10*3/uL 11/09/2024 2:40 PM EDT [facility] ([facility]) Eosinophils Absolute 0.14 0.00 - 0.50 10*3/uL 11/09/2024 2:40 PM EDT [facility] ([facility]) Basophils Absolute 0.03 0.00 - 0.20 10*3/uL 11/09/2024 2:40 PM EDT [facility] ([facility]) Platelets 262 150 - 400 10*3/uL 11/09/2024 2:40 PM EDT [facility] ([facility]) nRBC % 0.0 0 % 11/09/2024 2:40 PM EDT [facility] ([facility]) Immature Granulocytes % 0.2 0.0 - 1.0 % 11/09/2024 2:40 PM EDT [facility] ([facility]) Immature Granulocytes Absolute 0.01 0.00 - 0.20 10*3/uL 11/09/2024 2:40 PM EDT [facility] ([facility]) Blood Venous blood specimen / Unknown Existing Catheter / Unknown 11/09/2024 2:09 PM EDT 11/09/2024 2:15 PM EDT us Shanna Lamas DO LAB BLOOD ORDERABLES Final Result [facility] ([facility]) [address] [place] [address] * Magnesium (11/09/2024 2:09 PM EDT) Magnesium 2.0 1.9 - 2.7 mg/dL 11/09/2024 2:46 PM EDT [facility] ([facility]) Blood Venous blood specimen / Unknown Existing Catheter / Unknown 11/09/2024 2:09 PM EDT 11/09/2024 2:15 PM EDT us Shanna Adams DO LAB BLOOD ORDERABLES Final Result [facility] ([facility]) [address] [place] [address] * (ABNORMAL) Basic metabolic panel (11/09/2024 2:09 PM EDT) Sodium 138 136 - 145 mmol/L 11/09/2024 2:46 PM EDT [facility] ([facility]) Potassium 3.9 3.5 - 5.1 mmol/L 11/09/2024 2:46 PM EDT [facility] ([facility]) Chloride 105 98 - 107 mmol/L 11/09/2024 2:46 PM EDT [facility] ([facility]) CO2 27 21 - 31 mmol/L 11/09/2024 2:46 PM EDT [facility] ([facility]) BUN 14 7 - 25 mg/dL 11/09/2024 2:46 PM EDT [facility] ([facility]) Creatinine 0.57(L) 0.60 - 1.20 mg/dL 11/09/2024 2:46 PM EDT [facility] ([facility]) Glucose 100 70 - 100 mg/dL 11/09/2024 2:46 PM EDT [facility] ([facility]) Calcium 8.3(L) 8.6 - 10.3 mg/dL 11/09/2024 2:46 PM EDT [facility] ([facility]) Anion Gap 10 7 - 20 mmol/L 11/09/2024 2:46 PM EDT [facility] ([facility]) eGFR 121.5 >60.0 mL/min/1. 73m*2 11/09/2024 2:46 PM EDT [facility] ([facility]) Comment:[facility] s estimated glomerular filtration rate (eGFR) [...] any one group of individuals. BUN/Creatinine Ratio 24.6 10/17 2:46 PM EDT [facility]) Blood Venous blood specimen / Unknown Existing Catheter / Unknown 11/09/2024 2:09 PM EDT 11/09/2024 2:15 PM EDT Shanna Lamas DO LAB BLOOD ORDERABLES Final Result [facility]) [address] [place] [address] * High Sensitivity Troponin I (11/09/2024 2:09 PM EDT) [facility] High Sensitivity Troponin I 4 <15 ng/L 11/09/2024 2:46 PM EDT [facility]) Blood Venous blood specimen / Unknown Existing Catheter / Unknown 11/09/2024 2:09 PM EDT 11/09/2024 2:15 PM EDT Wali Collins MD LAB BLOOD ORDERABLES Final Result Performing Organization Address City/[facility]/ZIP Co de Phone Number [facility]) [address] [place] [address] * ECG 12 lead (11/09/2024 12:39 PM EDT) Ventricular Rate 86 BPM GE MUSE Atrial Rate 86 BPM GE MUSE NJ Interval 140 ms GE MUSE QRS DURATION 90 ms GE MUSE QT Interval 394 ms GE MUSE QTC CALCULATION(BAZE TT) 471 ms GE MUSE P [place] 51 degrees GE MUSE R-[place] 17 degrees GE MUSE T Wave [place] 37 degrees GE MUSE 11/09/2024 12:1 6 PM EDT 11/09/2024 2:00 PM EDT Impressions GE MUSE - 11/09/2024 2:00 PM EDT Normal sinus rhythm Minimal voltage criteria for LVH, may be normal variant ( Bucklin product ) Borderline ECG When compared with ECG of 07-NOV-2024 11:33, No significant change was found Confirmed by Juan SIERRA, JONELLE Harmon ([id number]) on 11/09/2024 2:00:39 PM Narrative Procedure Note Jonelle Sierra MD - 11/09/2024 IMPRESSION: Normal sinus rhythm Minimal voltage criteria for LVH, may be normal variant ( Teofilo product ) Borderline ECG When compared with ECG of 07-NOV-2024 11:33, No significant change was found Confirmed by Juan SIERRA SAMER J. 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 Hypothyroidism Unspecified hypothyroidism History of adrenal insufficiency Pseudoaneurysm of right femoral artery Other aneurysm of unspecified site Myocardial bridge S/P laparoscopic sleeve gastrectomy Gastroparesis IBS (irritable bowel syndrome) Irritable bowel syndrome Chronic pain syndrome documented in this encounter Admitting Diagnoses Diagnosis Chest pain Unspecified chest pain documented in this encounter Administered Medications Inactive Administered Medications - up to 3 most recent administrations Medication Order MAR Action Action Date Dose Rate Site Adult Cyclic 3-in-1 TPN 2,300 mL, intravenous, Administer over 16 Hours, Cyclic TPN, Starting on Wed11/10/24 at 2200, For 24 hours, 16 hr administration 158.3 ml/hr x first 13 hr 79.8 ml/hr x last 3 hr Use a 1.2 micron filter.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 Rate/Dose Verify 11/11/2024 1:33 PM EDT 79.8 mL/hr Rate/Dose Change 11/11/2024 11:25 AM EDT 79.8 m L/hr New Bag 11/10/2024 10:31 PM EDT albuterol 90 mcg/actuation inhaler 2 puff 2 puff, inhalation, Every 6 hours PRN, wheezing, shortness of breath, Starting on Heena 11/09/24 at 1319 aspirin chewable tablet 81 mg 81 mg, oral, Daily with breakfast, First dose on Wed11/10/24 at 0800, For 99 days Given 11/13/2024 9:05 AM EDT 81 mg Given 11/12/2024 8:39 AM EDT 81 mg Given 11/11/2024 9:43 AM EDT 81 mg clopidogrel (Plavix) tablet 75 mg 75 mg, oral, Daily, First dose on Heena 11/09/24 at 1230, For 99 days Given 11/13/2024 9:04 AM EDT 75 mg Given 11/12/2024 8:39 AM EDT 75 mg Given 11/11/2024 9:43 AM EDT 75 mg colchicine split tablet 0.3 mg 0.3 mg, oral, Daily, First dose on 11/11/24 at 1130, For 1 dose Given 11/11/2024 12:47 PM EDT 0.3 mg colchicine split tablet 0.3 mg 0.3 mg, oral, Every other day, First dose on Wed11/12/24 at 1000, For 99 days Given 11/12/2024 9:05 AM EDT 0.3 mg dextrose 50 % in water (D50W) syringe 25 g 25 g, intravenous, Every 15 min PRN, capillary blood glucose < 70 mg/dL and patient unable to take oral and has IV access, Starting on Heena 11/09/24 at 1714, For 99 days, - Recheck blood glucose [...] or tube feeding bolus) diphenhydrAMINE (BENADryl) injection 50 mg 50 mg, intravenous, Every 6 hours PRN, itching, nausea, Starting on Heena 11/09/24 at 1231, For 99 days Given 11/13/2024 1:04 PM EDT 50 mg Given 11/13/2024 6:52 AM EDT 50 mg Given 11/13/2024 12:10 AM EDT 50 mg docusate sodium (Colace) capsule 100 mg 100 mg, oral, 2 times daily, First dose on [place] 11/09/24 at 2200, For 99 days Given 11/13/2024 9:05 AM EDT 100 mg Given 11/12/2024 9:41 PM EDT 100 mg Given 11/12/2024 8:39 AM EDT 100 mg enoxaparin (Lovenox) syringe 40 mg 40 mg, subcutaneous, Every 24 hours scheduled, First dose on [facility] 11/09/24 at 1345, For 99 days, Indications: venous thrombosisIndications:venous thrombosis Given 11/10/2024 10:31 AM EDT 40 mg Left Lower Abdomen Given 11/09/2024 3:04 PM EDT 40 mg Ri ght Upper Arm (Back) escitalopram (Lexapro) tablet 20 mg 20 mg, oral, Daily, First dose on [facility] 11/09/24 at 1230, For 99 days Given 11/13/2024 9:04 AM EDT 20 mg Given 11/12/2024 8:39 AM EDT 20 mg Given 11/11/2024 9:43 AM EDT 20 mg fentaNYL (Duragesic) 12 mcg/hr 1 patch 1 patch, transdermal, Administer over 72 Hours, Every 72 hours, First dose on [facility] 11/09/24 at 1430, For 99 days, Do not cut patch. [...] hands immediately after handling patch. Medication Applied 11/12/2024 2:30 PM EDT 1 patch Chest Medication Applied 11/09/2024 3:05 PM EDT 1 patch Left Arm fentaNYL (Duragesic) 25 mcg/hr 1 patch 1 patch, transdermal, Administer over 72 Hours, Every 72 hours, First dose on [facility] 11/09/24 at 1430, For 99 days, Do not cut patch. [...] hands immediately after handling patch. Medication Applied 11/12/2024 2:30 PM EDT 1 patch Chest Medication Applied 11/09/2024 3:05 PM EDT 1 patch Chest glucose chewable tablet 24 g 24 g, oral, Every 15 min PRN, capillary blood glucose < 70 mg/dL and patient alert and eating, Starting on Wed11/09/24 at 1714, For 99 days, - Recheck blood glucose [...] IV fluids or tube feeding bolus) HYDROcodone-acetaminophen (Laverne) 5-325 mg per tablet 2 tablet 2 tablet, oral, Every 4 hours PRN, moderate-severe pain (4-10 pain score), Starting on Wed11/09/24 at 1227, For 99 days Given 11/10/2024 6:13 AM EDT 2 tablets Given 11/10/2024 2:08 AM EDT 2 tablets Given 11/09/2024 10:04 PM EDT 2 tablets hydrocortisone (Cortef) tablet 10 mg 10 mg, oral, Daily, First dose on Wed11/09/24 at 1230, For 99 days Given 11/13/2024 9:04 AM EDT 10 mg Given 11/12/2024 8:39 AM EDT 10 mg Given 11/11/2024 9:43 AM EDT 10 mg HYDROmorphone (Dilaudid) injection 0.3 mg 0.3 mg, intravenous, Every 4 hours PRN, severe pain (8-10 pain score), use only if oral route not available or oral medications ineffective., Starting on Wed11/10/24 at 1841, For 99 days Given 11/13/2024 11:08 AM EDT 0.3 mg Given 11/13/2024 7:22 AM EDT 0.3 mg Given 11/13/2024 3:03 AM EDT 0.3 mg insulin lispro (HumaLOG) injection 0-5 Units 0-5 Units, subcutaneous, 3 times daily with meals, First dose on [place] 11/09/24 at 1715, For 99 days, BG less than 110 instructions: Hold Insulin. If BG below 70, implement hypoglycemia orders., BG 110-150: 0, BG 151-200: 1, BG 201-250: 2, BG 251-300: 3, BG 301-350: 4, BG 351-400: 5, BG greater than 400 instructions: Call Physician Given 11/09/2024 5:21 PM EDT 2 Units Right Lower Abdomen insulin lispro (HumaLOG) injection 0-5 Units 0-5 Units, subcutaneous, Every 6 hours scheduled, First dose on 11/11/24 at 0000, For 99 days, BG less than 110 instructions: Hold Insulin. If BS below 70, implement hypoglycemia orders., BG 110-150: 0, BG 151-200: 1, BG 201-250: 2, BG 251-300: 3, BG 301-350: 4, BG 351-400: 5, BG greater than 400 instructions: call Physician Given 11/11/2024 6:00 PM EDT 1 Units Left Lower Abdomen iohexol (OMNIPaque) 350 mg iodine/mL injection 100 mL 100 mL, intravenous, Once in imaging, Starting on 11/11/24 at 2056, For 1 dose Given 11/11/2024 8:56 PM EDT 100 mL kit prep Tc 99m-sestamibi no.1 (Cardiolite) radio-isotope injection 10 millicurie 10 millicurie, intravenous, Once in imaging, Starting on Wed11/10/24 at 0958, For 99 days Given 11/10/2024 9:45 AM EDT 10 millicuries kit prep Tc 99m-sestamibi no.1 (Cardiolite) radio-isotope injection 30 millicurie 30 millicurie, intravenous, Once in imaging, Starting on Wed11/10/24 at 0958, For 99 days Given 11/10/2024 11:21 AM EDT 30 millicuries levothyroxine (Synthroid, Levoxyl) tablet 75 mcg 75 mcg, oral, Daily before breakfast, First dose on Wed11/10/24 at 0730, For 99 days Given 11/13/2024 7:00 AM EDT 75 mcg Given 11/12/2024 6:43 AM EDT 75 mcg Given 11/11/2024 6:57 AM EDT 75 mcg liothyronine (Cytomel) tablet 5 mcg 5 mcg, oral, Daily, First dose on Wed11/09/24 at 1230, For 99 days Given 11/13/2024 9:03 AM EDT 5 mcg Given 11/12/2024 8:38 AM EDT 5 mcg Given 11/11/2024 1:06 PM EDT 5 mcg LORazepam (Ativan) injection 0.5 mg 0.5 mg, intravenous, Once, On Wed11/12/24 at 0945, For 1 dose, For IV use, dilute prior to use 1:1 dilution with 0.9% sodium chloride. Do not exceed 2 mg/minute or 0.05 mg/kg over 2 to 5 minutes. For IM use, administer undiluted. Given 11/12/2024 9:56 AM EDT 0.5 mg methocarbamol (Robaxin) tablet 750 mg 750 mg, oral, 4 times daily, First dose on Wed11/09/24 at 1400, For 99 days Given 11/13/2024 2:16 PM EDT 750 mg Given 11/13/2024 9:04 AM EDT 750 mg Given 11/12/2024 9:41 PM EDT 750 mg metoprolol succinate XL (Toprol-XL) 24 hr tablet 25 mg 25 mg, oral, Daily, First dose on Wed11/09/24 at 1230, For 99 days, Do not crush or chew. Given 11/11/2024 9:43 AM EDT 25 mg Given 11/10/2024 10:30 AM EDT 25 mg Given 11/09/2024 1:12 PM EDT 25 mg metoprolol succinate XL (Toprol-XL) 24 hr tablet 50 mg 50 mg, oral, Daily, First dose (after last modification) on Wed11/12/24 at 1000, For 96 doses, Do not crush or chew. Given 11/13/2024 9:04 AM EDT 50 mg Given 11/12/2024 8:39 AM EDT 50 mg mirtazapine (Remeron) tablet 45 mg 45 mg, oral, Nightly, First dose on [place] 11/09/24 at 2200, For 99 days Given 11/12/2024 9:40 PM EDT 45 mg Given 11/11/2024 10:22 PM EDT 45 mg Given 11/10/2024 9:25 PM EDT 45 mg morphine injection 1 mg 1 mg, intravenous, Once, On 11/11/24 at 1830, For 1 dose Given 11/11/2024 6:32 PM EDT 1 mg morphine injection 2 mg 2 mg, intravenous, Every 4 hours PRN, severe pain (8-10 pain score), use only if oral route not available or oral medications ineffective., Starting on [place] 11/09/24 at 1958, For 99 days Given 11/10/2024 5:13 PM EDT 2 mg Given 11/10/2024 12:55 PM EDT 2 mg Given 11/10/2024 8:12 AM EDT 2 mg naloxone (Narcan) injection 0.4 mg 0.4 mg, intravenous, As needed, opioid reversal, Starting on Wed11/10/24 at 1839, For 99 days nitroglycerin (Nitrostat) SL tablet 0.4 mg 0.4 mg, sublingual, Every 5 min PRN, chest pain, Starting on 11/11/24 at 1802, For 99 days, May administer up to 3 doses per episode. Given 11/11/2024 6:20 PM EDT 0.4 mg Given 11/11/2024 6:15 PM EDT 0.4 mg Given 11/11/2024 6:10 PM EDT 0.4 mg oxyCODONE (Roxicodone) immediate release tablet 5 mg 5 mg, oral, Every 4 hours PRN, severe pain (8-10 pain score), Starting on Wed11/10/24 at 1434, For 99 days Given 11/13/2024 2:16 PM EDT 5 mg Given 11/13/2024 12:45 AM EDT 5 mg Given 11/12/2024 5:46 PM EDT 5 mg pantoprazole (ProtoNix) EC tablet 40 mg 40 mg, oral, 2 times daily before meals, First dose on Wed11/09/24 at 1600, Do not crush, chew, or split., Indication: Stress Ulcer Prophylaxis Given 11/13/2024 7:00 AM EDT 40 mg Given 11/12/2024 4:27 PM EDT 40 mg Given 11/12/2024 6:43 AM EDT 40 mg polyethylene glycol (Glycolax) packet 17 g 17 g, oral, Daily, First dose on Wed11/09/24 at 1400, For 99 days Given 11/13/2024 9:04 AM EDT 17 g Given 11/12/2024 8:39 AM EDT 17 g Given 11/11/2024 9:43 AM EDT 17 g ranolazine (Ranexa) 12 hr tablet 500 mg 500 mg, oral, 2 times daily, First dose on Wed11/09/24 at 1400, For 99 days, Do not crush, chew, or split. Given 11/13/2024 9:04 AM EDT 500 mg Given 11/12/2024 9:40 PM EDT 500 mg Given 11/12/2024 8:39 AM EDT 500 mg regadenoson (Lexiscan) injection 0.4 mg 0.4 mg, intravenous, Once, On Wed11/10/24 at 0845, For 1 dose Given 11/10/2024 8:45 AM EDT 0.4 mg rosuvastatin (Crestor) tablet 40 mg 40 mg, oral, Nightly, First dose on Wed11/09/24 at 2200, For 99 days Given 11/12/2024 9:40 PM EDT 40 mg Given 11/11/2024 10:22 PM EDT 40 mg Given 11/10/2024 9:25 PM EDT 40 mg sodium chloride flush 10 mL 10 mL, intravenous, Every 8 hours PRN, line care, Starting on Wed11/09/24 at 1229, For 99 days sucralfate (Carafate) tablet 1 g 1 g, oral, 4 times daily before meals and nightly, First dose on Wed11/09/24 at 1230, For 99 days, Give on an empty stomach (1 hr before meals, at bedtime). Separate all other meds by at least 2 hours (exception: antacids may be given only 30 minutes apart). Given 11/13/2024 11:08 AM EDT 1 g Given 11/13/2024 7:00 AM EDT 1 g Given 11/12/2024 9:40 PM EDT 1 g topiramate (Topamax) tablet 100 mg 100 mg, oral, 2 times daily, First dose on [place] 11/09/24 at 1230, For 99 days, Crushing/splitting of tablets is not recommended due to bitter taste. Given 11/13/2024 9:04 AM EDT 100 mg Given 11/12/2024 9:40 PM EDT 100 mg Given 11/12/2024 8:39 AM EDT 100 mg traMADol (Ultram) tablet 50 mg 50 mg, oral, Every 6 hours PRN, moderate pain (4-7 pain score), Starting on [place] 11/09/24 at 1228, For 99 days Given 11/10/2024 3:57 PM EDT 50 mg Given 11/09/2024 4:55 PM EDT 50 mg traZODone (Desyrel) tablet 100 mg 100 mg, oral, Nightly, First dose on [place] 11/09/24 at 2200, For 99 days Given 11/12/2024 9:41 PM EDT 100 mg Given 11/11/2024 10:22 PM EDT 100 mg Given 11/10/2024 9:25 PM EDT 100 mg trimethobenzamide (Tigan) injection 200 mg 200 mg, intramuscular, Every 6 hours PRN, nausea, vomiting, Starting on 11/11/24 at 1845, For 99 days, Trimethobenzamide is restricted when used inpatient. Which of the following criteria does the patient meet? QTc > 460 ms in females with multiple QTc prolonging medications or predisposition to QTc prolongation Given 11/11/2024 6:51 PM EDT 200 mg Right Deltoid verapamil (Calan) tablet 40 mg 40 mg, oral, Every 8 hours scheduled, First dose on [place] 11/09/24 at 1400, For 99 days Given 11/13/2024 2:16 PM EDT 40 mg Given 11/13/2024 7:00 AM EDT 40 mg Given 11/12/2024 9:41 PM EDT 40 mg documented in this encounter Active and Recently Administered Medications Times are shown in EDT. Scheduled Medication Order 11/11/2024 11/12/2024 11/13/2024 aspirin chewable tablet 81 mg 81 mg, oral, Daily with breakfast, First dose on Wed11/10/24 at 0800, For 99 days 0943 (Given - Provider: Stacie Keyes RN) 0839 (Given - Provider: Patricia Butt RN) 0905 (Given - Provider: Patricia Butt RN) clopidogrel (Plavix) tablet 75 mg 75 mg, oral, Daily, First dose on [place] 11/09/24 at 1230, For 99 days 0943 (Given - Provider: Stacie Keyes RN) 0839 (Given - Provider: Patricia Butt RN) 0904 (Given - Provider: Patricia Butt RN) colchicine split tablet 0.3 mg (COMPLETED) 0.3 mg, oral, Daily, First dose on 11/11/24 at 1130, For 1 dose 1247 (Given - Provider: Stacie Keyes RN) colchicine split tablet 0.3 mg 0.3 mg, oral, Every other day, First dose on Wed11/12/24 at 1000, For 99 days 09 (Given - Provider: Patricia Butt RN) docusate sodium (Colace) capsule 100 mg 100 mg, oral, 2 times daily, First dose on [place] 11/09/24 at 2200, For 99 days 0943 (Given - Provider: Stacie Keyes RN)2222 (Given - Provider: Diamond Cardoza RN) 0839 (Given - Provider: Patricia Butt RN)2141 (Given - Provider: Diamond Cardoza RN) 09 (Given - Provider: Patricia Butt RN) escitalopram (Lexapro) tablet 20 mg 20 mg, oral, Daily, First dose on [place] 11/09/24 at 1230, For 99 days 0943 (Given - Provider: Stacie Keyes RN) 0839 (Given - Provider: Patricia Butt RN) 0904 (Given - Provider: Patricia Butt RN) fentaNYL (Duragesic) 12 mcg/hr 1 patch 1 patch, transdermal, Administer over 72 Hours, Every 72 hours, First dose on [place] 11/09/24 at 1430, For 99 days, Do not cut patch. [...] policy. Wash hands immediately after handling patch. 1429 (Medication Removed - Provider: Patricia Butt RN)1430 (Medication Applied - Provider: Patricia Butt RN) 1434 (Due: Medication Removed - Provider: Automatic Discharge Provider - Comment: Time automatically adjusted from order being discontinued) fentaNYL (Duragesic) 25 mcg/hr 1 patch 1 patch, transdermal, Administer over 72 Hours, Every 72 hours, First dose on [place] 11/09/24 at 1430, For 99 days, Do not cut patch. [...] policy. Wash hands immediately after handling patch. 1429 (Medication Removed - Provider: Patricia Butt RN)1430 (Medication Applied - Provider: Patricia Butt RN) 1434 (Due: Medication Removed - Provider: Automatic Discharge Provider - Comment: Time automatically adjusted from order being discontinued) hydrocortisone (Cortef) tablet 10 mg 10 mg, oral, Daily, First dose on [place] 11/09/24 at 1230, For 99 days 0943 (Given - Provider: Stacie Keyes RN) 0839 (Given - Provider: Patricia Butt RN) 0904 (Given - Provider: Patricia Butt RN) insulin lispro (HumaLOG) injection 0-5 Units 0-5 Units, subcutaneous, Every 6 hours scheduled, First dose on [facility] 11/11/24 at 0000, For 99 days, BG less than 110 instructions: Hold Insulin. If BS below 70, implement hypoglycemia orders., BG 110-150: 0, BG 151-200: 1, BG 201-250: 2, BG 251-300: 3, BG 301-350: 4, BG 351-400: 5, BG greater than 400 instructions: call Physician 0000 (Not Given - Provider: Diamond Cardoza RN - Reason: Order parameters not met)0600 (Not Given - Provider: Diamond Cardoza RN - Reason: Order parameters not met - Comment: 125)1200 (Not Given - Provider: Stacie Keyes RN - Reason: Order parameters not met)1800 (Given - Provider: Stacie Keyes RN) 0000 (Not Given - Provider: Diamond Cardoza RN - Reason: Order parameters not met)0600 (Not Given - Provider: Diamond Cardoza RN - Reason: Order parameters not met)1200 (Not Given - Provider: Patricia Butt RN - Reason: Order parameters not met)1800 (Not Given - Provider: Patricia Butt RN - Reason: Order parameters not met) 0000 (Not Given - Provider: Diamond Cardoza RN - Reason: Order parameters not met)0600 (Not Given - Provider: Diamond Cardoza RN - Reason: Order parameters not met)1200 (Not Given - Provider: Patricia Butt RN - Reason: Order parameters not met) iohexol (OMNIPaque) 350 mg iodine/mL injection 100 mL (COMPLETED) 100 mL, intravenous, Once in imaging, Starting on 11/11/24 at 2055, For 1 dose 2055 (Given - Provider: STEFAN Fu) kit prep Tc 99m-sestamibi no.1 (Cardiolite) radio-isotope injection 10 millicurie 10 millicurie, intravenous, Once in imaging, Starting on Wed11/10/24 at 0958, For 99 days kit prep Tc 99m-sestamibi no.1 (Cardiolite) radio-isotope injection 30 millicurie 30 millicurie, intravenous, Once in imaging, Starting on Wed11/10/24 at 0958, For 99 days levothyroxine (Synthroid, Levoxyl) tablet 75 mcg 75 mcg, oral, Daily before breakfast, First dose on Wed11/10/24 at 0730, For 99 days 0657 (Given - Provider: Diamond Cardoza RN) 0643 (Given - Provider: Diamond Cardoza RN) 0700 (Given - Provider: Diamond Cardoza RN) liothyronine (Cytomel) tablet 5 mcg 5 mcg, oral, Daily, First dose on [place] 11/09/24 at 1230, For 99 days 1306 (Given - Provider: Stacie Keyes RN) 0838 (Given - Provider: Patricia Butt RN) 0903 (Given - Provider: Patricia Butt RN) LORazepam (Ativan) injection 0.5 mg (COMPLETED) 0.5 mg, intravenous, Once, On Wed11/12/24 at 0945, For 1 dose, For IV use, dilute prior to use 1:1 dilution with 0.9% sodium chloride. Do not exceed 2 mg/minute or 0.05 mg/kg over 2 to 5 minutes. For IM use, administer undiluted. 0956 (Given - Provider: Patricia Butt RN) methocarbamol (Robaxin) tablet 750 mg 750 mg, oral, 4 times daily, First dose on [place] 11/09/24 at 1400, For 99 days 0943 (Given - Provider: Stacie Keyes RN)1527 (Given - Provider: Stacie Keyes RN)1747 (Given - Provider: Stacie Keyes RN)2222 (Given - Provider: Diamond Cardoza RN) 0839 (Given - Provider: Patricia Butt RN)1421 (Given - Provider: Patricia Butt RN)1746 (Given - Provider: Patricia Butt RN)2141 (Given - Provider: Diamond Cardoza RN) 0904 (Given - Provider: Patricia Butt RN)1416 (Given - Provider: Patricia Butt RN) metoprolol succinate XL (Toprol-XL) 24 hr tablet 25 mg (CANCELED) 25 mg, oral, Daily, First dose on [facility] 11/09/24 at 1230, For 99 days, Do not crush or chew. 0943 (Given - Provider: Stacie Keyes RN) metoprolol succinate XL (Toprol-XL) 24 hr tablet 50 mg 50 mg, oral, Daily, First dose (after last modification) on Wed11/12/24 at 1000, For 96 doses, Do not crush or chew. 0839 (Given - Provider: Patricia Butt RN) 0904 (Given - Provider: Patricia Butt RN) mirtazapine (Remeron) tablet 45 mg 45 mg, oral, Nightly, First dose on [facility] 11/09/24 at 2200, For 99 days 2222 (Given - Provider: Diamond Cardoza RN) 2139 (Given - Provider: Diamond Cardoza RN) morphine injection 1 mg (COMPLETED) 1 mg, intravenous, Once, On 11/11/24 at 1830, For 1 dose 183 (Given - Provider: Stacie Keyes RN) pantoprazole (ProtoNix) EC tablet 40 mg 40 mg, oral, 2 times daily before meals, First dose on [place] 11/09/24 at 1600, Do not crush, chew, or split., Indication: Stress Ulcer Prophylaxis 0657 (Given - Provider: Diamond Cardoza RN)1527 (Given - Provider: Stacie Keyes RN) 0643 (Given - Provider: Diamond Cardoza RN)1627 (Given - Provider: Patricia Butt RN) 0700 (Given - Provider: Diamond Cardoza RN)1600 (Canceled Entry - Provider: Automatic Discharge Provider - Comment: Automatically canceled at discontinue of medication order) polyethylene glycol (Glycolax) packet 17 g 17 g, oral, Daily, First dose on [place] 11/09/24 at 1400, For 99 days 0943 (Given - Provider: Stacie Keyes RN) 0839 (Given - Provider: Patricia Butt RN) 0904 (Given - Provider: Patricia Butt RN) ranolazine (Ranexa) 12 hr tablet 500 mg 500 mg, oral, 2 times daily, First dose on [place] 11/09/24 at 1400, For 99 days, Do not crush, chew, or split. 0943 (Given - Provider: Stacie Keyes RN)2222 (Given - Provider: Diamond Cardoza RN) 0839 (Given - Provider: Patricia Butt RN)2140 (Given - Provider: Diamond Cardoza RN) 0904 (Given - Provider: Patricia Butt, RN) rosuvastatin (Crestor) tablet 40 mg 40 mg, oral, Nightly, First dose on [place] 11/09/24 at 2200, For 99 days 2221 (Given - Provider: Diamond Cardoza RN) 2139 (Given - Provider: Diamond Cardoza RN) sucralfate (Carafate) tablet 1 g 1 g, oral, 4 times daily before meals and nightly, First dose on [place] 11/09/24 at 1230, For 99 days, Give on an empty stomach (1 hr before meals, at bedtime). Separate all other meds by at least 2 hours (exception: antacids may be given only 30 minutes apart). 0657 (Given - Provider: Diamond Cardoza RN)1247 (Given - Provider: Stacie Keyes RN)1527 (Given - Provider: Stacie Keyes RN)2222 (Given - Provider: Diamond Cardoza RN) 0655 (Given - Provider: Diamond Cardoza RN)1057 (Given - Provider: Patricia Butt RN)1627 (Given - Provider: Patricia Butt RN)2140 (Given - Provider: Diamond Cardoza RN) 0700 (Given - Provider: Diamond Cardoza RN)1108 (Given - Provider: Patricia Butt RN)1600 (Canceled Entry - Provider: Automatic Discharge Provider - Comment: Automatically canceled at discontinue of medication order) topiramate (Topamax) tablet 100 mg 100 mg, oral, 2 times daily, First dose on Wed11/09/24 at 1230, For 99 days, Crushing/splitting of tablets is not recommended due to bitter taste. 1247 (Given - Provider: Stacie Keyes RN)2222 (Given - Provider: Diamond Cardoza RN) 0839 (Given - Provider: Patricia Butt RN)2140 (Given - Provider: Diamond Cardoza RN) 0904 (Given - Provider: Patricia Butt RN) traZODone (Desyrel) tablet 100 mg 100 mg, oral, Nightly, First dose on Wed11/09/24 at 2200, For 99 days 2222 (Given - Provider: Diamond Cardoza RN) 2141 (Given - Provider: Diamond Cardoza RN) verapamil (Calan) tablet 40 mg 40 mg, oral, Every 8 hours scheduled, First dose on Wed11/09/24 at 1400, For 99 days 0658 (Given - Provider: Diamond Cardoza RN)1526 (Given - Provider: Stacie Keyes RN)2224 (Given - Provider: Diamond Cardoza RN) 0644 (Given - Provider: Diamond Cardoza RN)1421 (Given - Provider: Patricia Butt, RN)2141 (Given - Provider: Diamond Cardoza RN) 0700 (Given - Provider: Diamond Cardoza RN)1416 (Given - Provider: Patricia Butt RN) Continuous Medication Order 11/11/2024 11/12/2024 11/13/2024 Adult Cyclic 3-in-1 TPN () 2,300 mL, intravenous, Administer over 16 Hours, Cyclic TPN, Starting on Wed11/10/24 at 2200, For 24 hours, 16 hr administration 158.3 ml/hr x first 13 hr 79.8 ml/hr x last 3 hr Use a 1.2 micron filter.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 1125 (Rate/Dose Change - Provider: Denis Choe RN)1333 (Rate/Dose Verify - Provider: Stacie Keyes RN)1431 (Stopped - Provider: Denis Choe RN) PRN Medication Order 11/11/2024 11/12/2024 11/13/2024 acetaminophen (Tylenol) tablet 650 mg 650 mg, oral, Every 4 hours PRN, mild pain (1-3 pain score), Starting on [place] 11/09/24 at 1227, For 99 days albuterol 90 mcg/actuation inhaler 2 puff 2 puff, inhalation, Every 6 hours PRN, wheezing, shortness of breath, Starting on Wed11/09/24 at 1319 dextrose 50 % in water (D50W) syringe 25 g(Linked Group 1) 25 g, intravenous, Every 15 min PRN, capillary blood glucose < 70 mg/dL and patient unable to take oral and has IV access, Starting on [place] 11/09/24 at 1714, For 99 days, - Recheck blood glucose [...] or tube feeding bolus) diphenhydrAMINE (BENADryl) injection 50 mg 50 mg, intravenous, Every 6 hours PRN, itching, nausea, Starting on [place] 11/09/24 at 1231, For 99 days 0535 (Given - Provider: Diamond Cardoza RN)1127 (Given - Provider: Denis Choe RN)1747 (Given - Provider: Stacie Keyes RN)2359 (Given - Provider: Diamond Cardoza RN) 0620 (Given - Provider: Diamond Cardoza RN)1217 (Given - Provider: Patricia Butt, RN)1821 (Given - Provider: Patricia Butt RN) 0010 (Given - Provider: Diamond Cardoza RN)0652 (Given - Provider: Diamond Cardoza RN)1304 (Given - Provider: Patricia Butt, RN) glucose chewable tablet 24 g(Linked Group 1) 24 g, oral, Every 15 min PRN, capillary blood glucose < 70 mg/dL and patient alert and eating, Starting on [place] 11/09/24 at 1714, For 99 days, - Recheck blood glucose [...] dextrose IV fluids or tube feeding bolus) HYDROmorphone (Dilaudid) injection 0.3 mg 0.3 mg, intravenous, Every 4 hours PRN, severe pain (8-10 pain score), use only if oral route not available or oral medications ineffective., Starting on Wed11/10/24 at 1841, For 99 days 0638 (Given - Provider: Diamond Cardoza RN)1126 (Given - Provider: Denis Choe RN)1527 (Given - Provider: Stacie Keyes, DEE)1945 (Given - Provider: Diamond Cadroza RN) 0032 (Given - Provider: Diamond Cardoza RN)0642 (Given - Provider: Diamond Cardoza RN)1057 (Given - Provider: Patricia Butt RN)1509 (Given - Provider: Vonda Beverly RN)1908 (Given - Provider: Patricia Butt, RN) 0303 (Given - Provider: Fern Pierce RN)0722 (Given - Provider: Patricia Butt RN)1108 (Given - Provider: Patricia Butt RN) hydrOXYzine HCL (Atarax) tablet 50 mg 50 mg, oral, Nightly PRN, itching, allergies, anxiety, Starting on [place] 11/09/24 at 1227, For 99 days metoclopramide (Reglan) tablet 10 mg 10 mg, oral, 2 times daily PRN, nausea and vomiting, Starting on [place] 11/09/24 at 1228, For 99 days naloxone (Narcan) injection 0.4 mg 0.4 mg, intravenous, As needed, opioid reversal, Starting on Wed11/10/24 at 1839, For 99 days nitroglycerin (Nitrostat) SL tablet 0.4 mg 0.4 mg, sublingual, Every 5 min PRN, chest pain, Starting on 11/11/24 at 1802, For 99 days, May administer up to 3 doses per episode. 1810 (Given - Provider: Stacie Keyes RN)1815 (Given - Provider: Stacie Keyes RN)1820 (Given - Provider: Stacie Keyes RN) oxyCODONE (Roxicodone) immediate release tablet 5 mg 5 mg, oral, Every 4 hours PRN, severe pain (8-10 pain score), Starting on Wed11/10/24 at 1434, For 99 days 0944 (Given - Provider: Stacie Keyes RN)1747 (Given - Provider: Stacie Keyes RN)2139 (Given - Provider: Diamond Cardoza RN) 0433 (Given - Provider: Diamond Cardoza RN)0839 (Given - Provider: Patricia Butt RN)1325 (Given - Provider: Patricia Butt RN)1746 (Given - Provider: Patricia Butt RN) 0045 (Given - Provider: Diamond Cardoza RN)1416 (Given - Provider: Patricia Butt RN) sodium chloride flush 10 mL(Linked Group 2) 10 mL, intravenous, Every 8 hours PRN, line care, Starting on [place] 11/09/24 at 1229, For 99 days trimethobenzamide (Tigan) injection 200 mg 200 mg, intramuscular, Every 6 hours PRN, nausea, vomiting, Starting on 11/11/24 at 1845, For 99 days, Trimethobenzamide is restricted when used inpatient. Which of the following criteria does the patient meet? QTc > 460 ms in females with multiple QTc prolonging medications or predisposition to QTc prolongation 1850 (Given - Provider: Stacie Keyes RN) Linked Groups Order Group 1: glucose chewable tablet 24 gJump to med 24 g, oral, Every 15 min PRN, capillary blood glucose < 70 mg/dL and patient alert and eating, Starting on [place] 11/09/24 at 1714, For 99 days, - Recheck blood glucose [...] oral and has IV access, Starting on [place] 11/09/24 at 1714, For 99 days, - Recheck blood glucose [...] IV fluids or tube feeding bolus) Group 2: Insert peripheral IV (CANCELED) Once, On [place] 11/09/24 at 1230, For 1 occurrence And Saline lock IV (CANCELED) Once, On [place] 11/09/24 at 1230, For 1 occurrence And sodium chloride flush 10 mLJump to med 10 mL, intravenous, Every 8 hours PRN, line care, Starting on [place] 11/09/24 at 1229, For 99 days documented in this encounter 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
--- OUTSIDE RECORDS SUMMARY | 2024-11-14 05:00 | XMS_ITS ---
Author Organization [facility] [place] Address [address] [place] [address] Care Team Providers Care Career Services Officer Name Role Phone Brandyn Alas Primary Care Provider Allergies Allergen (clinical drug ingredient) Drug/Non Drug Allergy documented on EMR Reaction Allergy Type Onset Date Status codeine Codeine vomiting Drug Allergy Active Non-steroidal anti-inflammatory agent (FN) NSAIDs Gastric bypass Drug Allergy Active REASON FOR VISIT f/u ER- Heart Attack and Hematoma Sx Medications Medication SIG (Take, Route, Frequency, Duration) Notes Start Date End Date Status Sucralfate 1 GM 1 tablet on an empty stomach Orally TID 10/03/2024 Active Remeron 30 MG 1.5 tablet at bedtime Orally Once a day 06/23/2023 Active Ondansetron 4 MG 1-2 tablet on the tongue and allow to dissolve Orally q4h; Duration: 30 days As needed 09/29/2023 Active Prucalopride Succinate 2 MG 1 tablet Orally Once a day; Duration: 30 days Active DGSE Ultra 2 w/Device USE TO MONITOR BLOOD GLUCOSE LEVELS DAILY; Duration: 30 Active Metoclopramide HCl 10 MG 1 tablet before meals Orally achs; Duration: 30 days 08/07/2024 Active Lexapro 20 MG 1 tablet Orally Once a day 06/23/2023 Active Levothyroxine Sodium 75 MCG TAKE 1 TABLET BY MOUTH EVERY MORNING ON AN EMPTY STOMACH FOR 30 DAYS; Duration: 90 Active Methocarbamol 500 MG TAKE 1.5 TABLETS BY MOUTH EVERY 6 HRS FOR 30 DAYS; Duration: 30 Active Liothyronine Sodium 5 MCG 1 tablet on an empty stomach Orally Once a day; Duration: 30 days 06/23/2023 Active Hydrocortisone 10 MG 1 tablet with food or milk Orally once a day PRN- Injection Active HYDROcodone-Acetaminoph en 5-325 MG 1 - 2 tablet as needed - max 6/day Orally every 6 hrs; Duration: 30 days K56.600 K56.600 10/27/2024 Active Lancets 30G - Use 1 lancet E11.9 once daily; Duration: 90 03/22/2024 Active hydrOXYzine HCl 50 MG 1 tablet Orally On ce a day at bedtime; Duration: 30 days Active FreeStyle Hunter 3 Sensor Use to monitor glucose multiple times daily DX Diabetes with hypoglycemia episodes- change once every 10 days; Duration: 30 days 10/14/2023 Active Ferrous Sulfate 325 (65 Fe) MG 1 tablet Orally weekly; Duration: 30 days 07/19/2023 Active FreeStyle Hunter 3 [place] Use to monitor glucose levels multiple times daily DX Diabetes with hypoglycemic episodes; Duration: 365 days 10/14/2023 Active fentaNYL 25 MCG/HR 1 patch to skin Transdermal Q 3 days K56.600 10/18/2024 Active fentaNYL 12 MCG/HR 1 patch to skin Transdermal Q3d; Duration: 30 days with a 25mcg patch 10/17/2024 Active Ranolazine ER 500 MG TAKE 1 TABLET BY MOUTH TWICE DAILY Oral; Duration: 30 Days Active Plavix 75 MG 1 tablet Orally Once a day 11/14/2024 Active Verapamil HCl 40 MG 1 tablet Oral every 8 hours; Duration: 30 days Active Rosuvastatin Calcium 40 MG TAKE 1 TABLET BY MOUTH AT BEDTIME Oral; Duration: 30 Days Active Compazine 10 MG 1 tablet as needed Orally Three times a day 12/22/2023 Active Metoprolol Succinate ER 25 MG Oral; Duration: 30 Days Active Colchicine 0.6 MG 1/2 tablet Oral every other day; Duration: 30 days Active Faoqtylpqa-FQHB-Gtljxwe e 50-325-40 MG TAKE 1 TABLET BY MOUTH EVERY 4 HOURS NEEDED FOR HEADACHE; Duration: 4 PRN 04/21/2024 Active Aspirin 81 MG 1 tablet Orally Once a day 11/14/2024 Active Triamcinolone Acetonide 0.1 % 1 application Externally bid 09/27/2024 Active traMADol HCl 50 MG 1 tablet as needed Orally qid; Duration: 30 days As needed PRN 10/30/2024 Active Topamax 100 MG 1 tablet Orally BID; Duration: 30 days 06/23/2023 Active Test Strips - Test sugar Once daily; Duration: 90 days Dx: E11.9 03/22/2024 Active traZODone HCl 100 MG 1 tablet Orally bedtime 11/18/2023 Active Social History Tobacco Use: Social History Observation Description Date Details (start date - stop date) Never Smoker NA - NA Tobacco Control (Standard) Question Answer Notes Tobacco use: Nonsmoker Problems Problem Type SNOMED Code ICD Code Onset Dates Problem Status W/U Status Risk Notes Problem Coronary artery disease (83346525) CAD (coronary artery disease) (I25.10) Active confirmed Vital Signs Weight 186.6 lbs 11/14/2024 Height 66 in 11/14/2024 Blood pressure systolic 124 mm Hg 11/15/19 25 Blood pressure diastolic 80 mm Hg 025 BMI 30.11 kg/m2 11/14/2024 Encounters Encounter Location Date Provider Diagnosis [facility] [address] [place] [address] 11/14/2024 Brandyn Alas CAD (coronary artery disease) I25.10 and Moderate malnutrition E44.0 Assessments Encounter Date Diagnosis (ICD Code) Assessment Notes Treatment Notes Treatment Clinical Notes Section Notes 11/14/2024 CAD (coronary artery disease) (ICD-10 - I25.10) 11/14/2024 Moderate malnutrition (ICD-10 - E44.0) skipping feding tube Plan Of Treatment Treatment Notes Assessment Notes Moderate malnutrition skipping feding tu be Next Appt Details Provider Name:Brandyn Alas, 10:00:00 AM, [address] [place], [address], Progress Notes * Abbey KONG MDOB:1990 (34 yo F)Acc No.[id number]:11/14/2024 UNLOCKED PROGRESS NOTE Progress Note Patient: Abbey OSBORNE Sandra Provider: Du Alas ([facility]), :1990 A ge:34 Y S ex:Female Date:11/14/2024 Address:[address] [place] [address] , [place], [id number] Check In:08:49 AM ESTCheck O ut:09:25 AM EST Subjective: * Chief Complaints: * 1 . f/u ER- Heart Attack and Hematoma Sx. * HPI: G eneral: CAD - no stents tear in artery started on colchicine - QOD - disucsed interaction with chol meds - watching for myalgias Looking at getting feeding tube replaced Disussed options - likely skipping the feeding tube - doing TPN QOD at hs only. * ROS: E ENT: hearing changes d [...] enies. S wollen joints d enies. * Medical History: I BS (irritable bowel syndrome), Anxiety, Asthma, GERD (gastroesophageal reflux disease), Migraine, Hypothyroidism. * Surgical History: G astric bypass 01/2022, DELIVERYx3 , APPENDECTOMY , CHOLECYSTECTOMY , MALS Surgery 02/2023, J Tube removal 2024, Port Replacement 2024, Hematoma Surgery 2024. * Hospitalization/Major Diagno stic Procedure: s ee above- [facility], [facility] , [facility]- malnutrition, DM 06/2023, [facility]- Hypoglycemia 01/08, Hypoglycemia/ Bowel Obstruction 02/07, Sepsis 08/2024, Broken Port/ Bacteremia 09/2024, Heart Attack- [facility] 10/2024. * Family History: F ather: alive, thyroid disease, diagnosed with Hypertension. M other: alive, diagnosed with Diabetes, Hypertension. B rother(s): alive, thyroid disease, diagnosed with Hypertension. Sister(s): alive. S on(s): alive, Autisim. D aughter(s): alive, Autisim, attention deficit hyperactivity disorder. 2 brother(s) - healthy. 1 son(s) , 2 daughter(s) . . * Social History: T obacco Use: T obacco Control (Standard) T obacco use: N onsmoker * Medications: T aking Aspirin 81 MG Tablet Chewable 1 tablet Orally Once a day , Taking Vyjjstjuhx-IFKL-Zywkslkb 50-325-40 MG Tablet TAKE 1 TABLET BY MOUTH EVERY 4 HOURS NEEDED FOR HEADACHE , Notes to Pharmacist: PRN, Taking Colchicine 0.6 MG Tablet 1/2 tablet Oral every other day , Taking Compazine 10 MG Tablet 1 tablet as needed Orally Three times a day , Taking fentaNYL 12 MCG/HR Patch 72 Hour 1 patch to skin Transdermal Q3d with a 25mcg patch, Taking fentaNYL 25 MCG/HR Patch 72 Hour 1 patch to skin Transdermal Q 3 days K56.600, Taking Ferrous Sulfate 325 (65 Fe) MG Tablet 1 tablet Orally weekly , Taking FreeStyle Hunetr 3 [place] Use to monitor glucose levels multiple times daily DX Diabetes with hypoglycemic episodes , Taking FreeStyle Hunter 3 Sensor Use to monitor glucose multiple times daily DX Diabetes with hypoglycemia episodes- change once every 10 days , Taking HYDROcodone-Acetaminophen 5-325 MG Tablet 1 - 2 tablet as needed - max 6/day Orally every 6 hrs K56.600, Notes to Pharmacist: K56.600, Taking Hydrocortisone 10 MG Tablet 1 tablet with food or milk Orally once a day , Notes to Pharmacist: PRN- Injection, Taking hydrOXYzine HCl 50 MG Tablet 1 tablet Orally Once a day at bedtime , Taking Lancets 30G - Miscellaneous Use 1 lancet E11.9 once daily , Taking Levothyroxine Sodium 75 MCG Tablet TAKE 1 TABLET BY MOUTH EVERY MORNING ON AN EMPTY STOMACH FOR 30 DAYS , Taking Lexapro(Escitalopram Oxalate) 20 MG Tablet 1 tablet Orally Once a day , Taking Liothyronine Sodium 5 MCG Tablet 1 tablet on an empty stomach Orally Once a day , Taking Methocarbamol 500 MG Tablet TAKE 1.5 TABLETS BY MOUTH EVERY 6 HRS FOR 30 DAYS , Taking Metoclopramide HCl 10 MG Tablet 1 tablet before meals Orally achs , Taking Metoprolol Succinate ER 25 MG Tablet Extended Release 24 Hour Oral , Taking Ondansetron 4 MG Tablet Disintegrating 1-2 tablet on the tongue and allow to dissolve Orally q4h As needed, Taking DGSE Ultra 2(Blood Glucose Monitoring Suppl) w/Device Kit USE TO MONITOR BLOOD GLUCOSE LEVELS DAILY , Taking Plavix(Clopidogrel Bisulfate) 75 MG Tablet 1 tablet Orally Once a day , Taking Prucalopride Succinate 2 MG Tablet 1 tablet Orally Once a day , Taking Ranolazine ER 500 MG Tablet Extended Release 12 Hour TAKE 1 TABLET BY MOUTH TWICE DAILY Oral , Taking Remeron(Mirtazapine) 30 MG Tablet 1.5 tablet at bedtime Orally Once a day , Taking Rosuvastatin Calcium 40 MG Tablet TAKE 1 TABLET BY MOUTH AT BEDTIME Oral , Taking Sucralfate 1 GM Tablet 1 tablet on an empty stomach Orally TID , Taking Test Strips - - Test sugar Once daily Dx: E11.9, Taking Topamax(Topiramate) 100 MG Tablet 1 tablet Orally BID , Taking traMADol HCl 50 MG Tablet 1 tablet as needed Orally qid As needed, Notes to Pharmacist: PRN, Taking traZODone HCl 100 MG Tablet 1 tablet Orally bedtime , Taking Triamcinolone Acetonide 0.1 % Cream 1 application Externally bid , Taking Verapamil HCl 40 MG Tablet 1 tablet Oral every 8 hours , Discontinued Diflucan 100 MG Tablet 1 tablet Orally daily , Medication List reviewed and reconciled with the patient * Allergies: C odeine: vomiting - Allergy, NSAIDs: Gastric bypass - Contraindication. Objective: * Vitals: W t:186.6lbs, Ht: 66 in, BP:124/80mm Hg, BMI:30.11Index, Ht-cm: 167.64 cm, Wt-k.64 kg. * Examination: P hysical Exam: GENERAL: [...] mood and affect. Assessment: * Assessment: 1. C AD (coronary artery disease) - I25.10 (Primary) 2 . M oderate malnutrition - E44.0 Plan: * Treatment: * * Electronic signature of Brandyn Alas MD, [id number] on 11/19/2024 at 03:15 AM EDT Sign off status: Pending Visit Status: C HK (Check Out) * Provider: uD Alas ([facility])MD Date: 0 11/14/2024 Generated for Printi ng/Fatavog/eTransmitting on: 1 03:15 AM EDT History and Physical Notes * HPI (History of Present Illness) Category Sub-Category Detail Notes Category Not es General CAD - no stents tear in artery started on colchicine - QOD - disucsed interaction with chol meds - watching for myalgias Looking at getting feeding tube replaced Disussed options - likely skipping the feeding tube - doing TPN QOD at hs only Examination Category Sub-Category Detail Notes Category Not [...]
--- OUTSIDE RECORDS SUMMARY | 2024-11-15 13:15 | XMS_ITS | Encounter Summary ---
Author Organization [facility] Address [address], [address] [place] [address] Care Team Providers Care Sports Manager Name Role Phone Thomas Alas MD Primary Care Provider [phone] Reason for Visit * Reason Comments Chest Pain Patient reports bala yun discharged from [facility] on Wednesday after two week stay d/t heart attack and surgical intervention on blood clot in femoral artery. She also states that she has dissection to coronary artery that they are watching . Today, while resting quietly, patient started with left sided chest pain that radiates to left shoulder and feels similar to recent heart attack. She reports nausea without emesis. Patient given 324mg ASA and Nitro x1 in EMS which improved pain from 11/24 to 10/25. Encounter Details Date Type Department Care Team (Late st Contact Info) Description 11/15/2024 1:15 PM EDT - 11/15/2024 6:50 PM EDT Emergency [facility] Emergency Department [address] [place] [id number] Jory Hurd, [place] [address] Chest pain, unspecified type (Primary Dx) Discharge [...] you are drinking? Patient does not drink 3 Q3: How often do you have si x or more drinks on one occasion? Never 12/14/2022 AUDIT-C Answer Date Recorded Q1: How often do you have a drink containing alcohol? Never 11/08/2024 Q2: How many drinks containi ng alcohol do you have on a typical day when you are drinking? Patient does not drink 5 Q3: How often do you have si [...] Sign Reading Time Taken Comments Blood Pressure 101/62 11/15/2024 6:30 PM EDT Pulse 68 11/15/2024 6:30 PM EDT Temperature 36.6 C (97.9 F) 11/15/2024 1:33 PM EDT Respiratory Rate 12 11/15/2024 6:30 PM EDT Oxygen Saturation 96% 11/15/2024 6:30 PM EDT Inhaled Oxygen Concentration - - Weight 81.6 kg (180 lb) 11/15/2024 1:33 PM EDT Height - - Body Mass Index 29.95 11/08/2024 12:35 PM EDT documented in this encounter Medications at Time of Discharge hydrocortisone (CORTEF) 10 MG tablet Take 1 tablet by mouth daily 5 verapamil (CALAN) 40 MG tablet Take 1 tablet by mouth 5 02/12/20 25 traZODone (DESYREL) 100 MG tablet Take 1 tablet by mouth nightly sucralfate (CARAFATE) 1 GM tablet Take 1 tablet by mouth rosuvastatin (CRESTOR) 40 MG tablet Take 1 tablet by mouth nightly 5 02/15/20 25 ranolazine (RANEXA) 500 MG extended release tablet Take 1 tablet by mouth 2 times daily 5 02/16/19 26 Prucalopride Succinate (MOTEGRITY) 2 MG tablet Take 1 tablet by mouth daily metoclopramide (REGLAN) 10 MG tablet Take 1 tablet by mouth 2 times daily as needed 4 12/03/19 25 methocarbamol (ROBAXIN) 500 MG tablet Take 1.5 tablets by mouth 4 times daily metFORMIN, OSM, (FORTAMET) 500 MG extended release tablet Take 1 tablet by mouth 2 times daily (with meals) acetaminophen (TYLENOL) 325 MG tablet Take 2 [...] Procedure Name Priority Date/Time Associated Diagnosis Comments TROPONIN STAT 11/15/2024 2:35 PM EDT CBC WITH AUTO DIFFERENTIAL STAT 11/15/2024 1:25 PM EDT TROPONIN STAT 11/15/2024 1:25 PM EDT APTT STAT 11/15/2024 1:25 PM EDT PROTIME-INR STAT 11/15/2024 1:25 PM EDT BRAIN NATRIURETIC PEPTIDE STAT 11/15/2024 1:25 PM EDT BASIC METABOLIC PANEL STAT 11/15/2024 1:25 PM EDT XR CHEST PORTABLE STAT 11/15/2024 1:2 4 PM EDT EKG 12-LEAD STAT 11/15/2024 1:19 PM EDT documented in this encounter Results * Troponin (11/15/2024 2:35 PM EDT) Troponin, High Sensitivity <6 0 - 14 ng/L 11/15/2024 2:35 PM EDT [facility] Comment:High Sensitivity Tro ponin values cannot be compared with other Troponin methodologies. Blood BLOOD SPECIMEN / Unknown 11/15/2024 2:35 PM EDT 11/15/2024 2:39 PM EDT us Jory Hurd DO CHEMISTRY ORDERABLES Final Result Performing Organization Address City/[facility]/ZIP Co de Phone Number [facility] [address] [place] [address] * APTT (11/15/2024 1:25 PM EDT) [facility] APTT 27.8 23.1 - 33.7 sec 11/15/2024 1:25 PM EDT [facility] Comment: IV Heparin Therapy Range: 62.0-94.0 Blood BLOOD SPECIMEN / Unknown 11/15/2024 1:25 PM EDT 11/15/2024 1:49 PM EDT us Jory Hurd DO HEMATOLOGY ORDERABLES Final Result [facility] [address] [place] [address] * Protime-INR (11/15/2024 1:25 PM EDT) Protime 14.9 12.0 - 15.0 sec 11/15/2024 1:25 PM EDT [facility] INR 1.1 11/15/2024 1:25 PM EDT [facility] Comment: Therapeutic Range: Moderate Anticoagulant Intensity: INR = 2.0-3.0 High Anticoagulant Intensity: INR = 2.5-3.5 Blood BLOOD SPECIMEN / Unknown 11/15/2024 1:25 PM EDT 11/15/2024 1:49 PM EDT us Jory Hurd DO HEMATOLOGY ORDERABLES Final Result Performing Organization Address [facility]/ZIP Co de Phone Number [facility] [address] [phone] * (ABNORMAL) Brain Natriuretic Peptide (11/15/2024 1:25 PM EDT) NT Pro-BNP 530(H) 0 - 125 pg/mL 11/15/2024 1:25 PM EDT [facility] Blood BLOOD SPECIMEN / Unknown 11/15/2024 1:25 PM EDT 11/15/2024 1:49 PM EDT us Jory Hurd DO CHEMISTRY ORDERABLES Final Result Performing Organization Address [facility] Co de Phone Number [facility] [address] [place] [address] * Troponin (11/15/2024 1:25 PM EDT) Troponin, High Sensitivity <6 0 - 14 ng/L 11/15/2024 1:25 PM EDT [facility] Comment:High Sensitivity Tro ponin values cannot be compared with other Troponin methodologies. Blood BLOOD SPECIMEN / Unknown 11/15/2024 1:25 PM EDT 11/15/2024 1:29 PM EDT us Jory Hurd DO CHEMISTRY ORDERABLES Final Result Performing Organization Address [facility] Co de Phone Number [facility] [address] [place] [address] * (ABNORMAL) CBC with Auto Differential (11/15/2024 1:25 PM EDT) [facility] Signature WBC 6.6 3.5 - 11.3 k/uL 11/15/2024 1:25 PM EDT [facility] RBC 3.03(L) 3.95 - 5.11 m/uL 11/15/2024 1:25 PM EDT [facility] Hemoglobin 9.1(L) 11.9 - 15.1 g/dL 11/15/2024 1:25 PM [facility] Hematocrit 27.3(L) 36.3 - 47.1 % 11/15/2024 1:25 PM [facility] MCV 90.1 82.6 - 102.9 fL 11/15/2024 1:25 PM [facility] MCH 30.0 25.2 - 33.5 pg 11/15/2024 1:[facility] MCHC 33.3 28.4 - 34.8 g/dL 11/15/2024 1:25 PM [facility] RDW 14.3 11.8 - 14.4 % 11/15/2024 1:25 PM [facility] Platelets 362 138 - 453 k/uL 11/15/2024 1:25 PM [facility] MPV 10.5 8.1 - 13.5 fL 11/15/2024 1:25 PM [facility] NRBC Automated 0.0 0.0 per 100 WBC 11/15/2024 1:25 PM [facility] Neutrophils % 81(H) 36 - 65 % 11/15/2024 1:25 PM [facility] Lymphocytes % 15(L) 24 - 43 % 11/15/2024 1:25 PM [facility] Monocytes % 4 3 - 12 % 11/15/2024 1:25 PM [facility] Eosinophils % 0(L) 1 - 4 % 11/15/2024 1:25 PM EDT [facility] Basophils % 0 0 - 2 % 11/15/2024 1:25 PM EDT [facility] Immature Granulocytes % 0 0 % 11/15/2024 1:25 PM EDT [facility] Neutrophils Absolute 5.31 1.50 - 8.10 k/uL 11/15/2024 1:25 PM EDT [facility] Lymphocytes Absolute 0.99(L) 1.10 - 3.70 k/uL 11/15/2024 1:25 PM EDT [facility] Monocytes Absolute 0.27 0.10 - 1.20 k/uL 11/15/2024 1:25 PM EDT [facility] Eosinophils Absolute <0.03 0.00 - 0.44 k/uL 11/15/2024 1:25 PM EDT [facility] Basophils Absolute <0.03 0.00 - 0.20 k/uL 11/15/2024 1:25 PM EDT [facility] Immature Granulocytes Absolute <0.03 0.00 - 0.30 k/uL 11/15/2024 1:25 PM EDT [facility] 11/15/2024 1:25 PM EDT 11/15/2024 1:29 PM EDT us Jory Hurd DO HEMATOLOGY ORDERABLES Final Result [facility] [address] [phone] * (ABNORMAL) Basic Metabolic Panel (11/15/2024 1:25 PM EDT) Sodium 138 136 - 145 mmol/L 11/15/2024 1:25 PM EDT [facility] Potassium 3.9 3.7 - 5.3 mmol/L 11/15/2024 1:25 PM EDT [facility] Chloride 107 98 - 107 mmol/L 11/15/2024 1:25 PM EDT [facility] CO2 19(L) 20 - 31 mmol/L 11/15/2024 1:25 PM EDT [facility] Anion Gap 12 9 - 16 mmol/L 11/15/2024 1:25 PM EDT [facility] Glucose 103(H) 74 - 99 mg/dL 11/15/2024 1:25 PM EDT [facility] BUN 12 6 - 20 mg/dL 11/15/2024 1:25 PM EDT [facility] Creatinine 0.6 0.50 - 0.90 mg/dL 11/15/2024 1:25 PM EDT [facility] Est, Glom Filt Rate >90 >60 mL/min/1.7 3m2 11/15/2024 1:25 PM EDT [facility] Comment: These results are not intended for [...] following therapy that affects renal tubular secretion. BUN/Creatinine Ratio 20 9 - 20 11/15/2024 1:25 PM EDT [facility] Calcium 8.6 8.6 - 10.4 mg/dL 11/15/2024 1:25 PM EDT [facility] Blood BLOOD SPECIMEN / Unknown 11/15/2024 1:25 PM EDT 11/15/2024 1:29 PM EDT Jory Hurd DO CHEMISTRY ORDERABLES Final Result [facility] [address] [phone] * XR CHEST PORTABLE (11/15/2024 1:24 PM EDT) Anatomical Region Laterality Modality Chest Computed Radiogr aphy 11/15/2024 1:48 PM EDT Impressions 11/15/2024 1:49 PM EDT 1. No acute abnormalities. Narrative 11/15/2024 1:49 PM EDT EXAM: 1 VIEW XRAY OF THE CHEST 11/15/2024 01:24:14 PM COMPARISON: 07/27/2021 CLINICAL HISTORY: CP. FINDINGS: LINES, TUBES AND DEVICES: Right central venous catheter terminates in the SVC. LUNGS AND PLEURA: No focal pulmonary opacity. No pulmonary edema. No pleural effusion. No pneumothorax. HEART AND MEDIASTINUM: No acute abnormality of the cardiac and mediastinal silhouettes. BONES AND SOFT TISSUES: No acute osseous abnormality. Procedure Note Ty Dubois MD - 11/15/2024 EXAM: 1 VIEW XRAY OF THE CHEST 11/15/2024 01:24:14 PM COMPARISON: 07/27/2021 CLINICAL HISTORY: CP. FINDINGS: LINES, TUBES AND DEVICES: Right central venous catheter terminates in the SVC. LUNGS AND PLEURA: No focal pulmonary opacity. No pulmonary edema. No pleural effusion. Nopneumothorax. HEART AND MEDIASTINUM: No acute abnormality of the cardiac and mediastinal silhouettes. BONES AND SOFT TISSUES: No acute osseous abnormality. IMPRESSION: 1. No acute abnormalities. Jory Hurd DO IMG DIAGNOSTIC IMAGING ORDE IRASEMA Final Result * EKG 12 Lead (11/15/2024 1:19 PM EDT) Pathologist [facility] Ventricular Rate 87 BPM [facility] Atrial Rate 87 BPM [facility] P-R Interval 150 ms [facility] QRS Duration 84 ms [facility] Q-T Interval 406 ms [facility] QTc Calculation (Bazett) 488 ms [facility] P [place] 55 degrees [facility] R [place] 32 degrees [facility] T [place] 54 degrees [facility] 11/15/2024 1:19 PM EDT Narrative [facility] - 11/15/2024 6:59 PM EDT Normal sinus rhythm QTcB >= 480 msec Abnormal ECG No previous ECGs available Confirmed by Braxton Grey ([id number]) on 11/15/2024 6:59:27 PM Procedure Note Braxton Grey MD - 11/15/2024 Normal sinus rhythm QTcB >= 480 msec Abnormal ECG No previous ECGs available Confirmed by Braxton Grey ([id number]) on 11/15/2024 6:59:27 PM Jory Hurd DO ECG ORDERABLES Final Resul t [facility] documented in this encounter Visit Diagnoses Diagnosis Chest pain, unspecified type- Primary documented in this encounter Administered Medications Inactive Administered Medications - up to 3 most recent administrations Medication Order MAR Action Action Date Dose Rate Site diphenhydrAMINE (BENADRYL) injection 25 mg 25 mg, IntraVENous, ONCE, 1 dose, On Wed11/15/24 at 1345, IV Push at rate not to exceed 25 mg/min. Given 11/15/2024 1:45 PM EDT 25 mg fentaNYL (SUBLIMAZE) injection 50 mcg 50 mcg, IntraVENous, ONCE, 1 dose, On Wed11/15/24 at 1415, If oral and IV narcotics ordered, use oral first and only use IV if oral is ineffective or cannot take oral. Do Not give oral and IV within 1 hour of each other unless specifically ordered. Given 11/15/2024 2:10 PM EDT 50 mcg HYDROmorphone HCl PF (DILAUDID) injection 0.5 mg 0.5 mg, IntraVENous, EVERY 3 HOURS PRN, Starting on Wed11/15/24 at 1729, Until Wed11/15/24 at 2051, Pain Severe (7-10), Pain Moderate (4-6) OR per patient request for pain score (7-10), If oral and IV narcotics ordered, use oral first and only use IV if oral is ineffective or cannot take oral. Do Not give oral and IV within 1 hour of each other unless specifically ordered. Given 11/15/2024 5:38 PM EDT 0.5 mg HYDROmorphone HCl PF (DILAUDID) injection 1 mg 1 mg, IntraVENous, ONCE, 1 dose, On Wed11/15/24 at 1545, If oral and IV narcotics ordered, use oral first and only use IV if oral is ineffective or cannot take oral. Do Not give oral and IV within 1 hour of each other unless specifically ordered. Given 11/15/2024 3:37 PM EDT 1 mg ketorolac (TORADOL) injection 30 mg 30 mg, IntraVENous, ONCE, 1 dose, On Wed11/15/24 at 1615, Do not administer for more than 5 days. Given 11/15/2024 4:19 PM EDT 30 mg ketorolac (TORADOL) injection 30 mg 30 mg, IntraVENous, EVERY 6 HOURS, 12 doses, First dose on Wed11/15/24 at 2200, Last dose on Wed11/18/24 at 1600, Do not administer for more than 5 days. midazolam PF (VERSED) IntraVENous 1 mg 1 mg, IntraVENous, ONCE, 1 dose, On Wed11/15/24 at 1630 Given 11/15/2024 4:20 PM EDT 1 mg ondansetron (ZOFRAN) injection 4 mg 4 mg, IntraVENous, EVERY 6 HOURS PRN, Starting on Wed11/15/24 at 1729, Until Wed11/15/24 at 2051, Nausea, Vomiting Given 11/15/2024 5:38 PM EDT 4 mg prochlorperazine (COMPAZINE) injection 10 mg 10 mg, IntraVENous, ONCE, 1 dose, On Wed11/15/24 at 1345, If administering IV push, administer at a maximum rate of 5 mg/minute. Patients should remain lying down following administration and be reassessed for relief of nausea and presence of hypotension. Patients should be assisted the first time they get up after administration. Given 11/15/2024 1:45 PM EDT 10 mg documented in this encounter Active and Recently Administered Medications Times are shown in EDT. Scheduled Medication Order 11/13/2024 11/14/2024 11/15/2024 diphenhydrAMINE (BENADRYL) injection 25 mg (COMPLETED) 25 mg, IntraVENous, ONCE, 1 dose, On Wed11/15/24 at 1345, IV Push at rate not to exceed 25 mg/min. 1345 (Given - Provid er: Kera Smith RN) fentaNYL (SUBLIMAZE) injection 50 mcg (COMPLETED) 50 mcg, IntraVENous, ONCE, 1 dose, On Wed11/15/24 at 1415, If oral and IV narcotics ordered, use oral first and only use IV if oral is ineffective or cannot take oral. Do Not give oral and IV within 1 hour of each other unless specifically ordered. 1410 (Given - Provid er: Kera Smith RN) HYDROmorphone HCl PF (DILAUDID) injection 1 mg (COMPLETED) 1 mg, IntraVENous, ONCE, 1 dose, On Wed11/15/24 at 1545, If oral and IV narcotics ordered, use oral first and only use IV if oral is ineffective or cannot take oral. Do Not give oral and IV within 1 hour of each other unless specifically ordered. 1537 (Given - Provid er: Kera Smith RN) ketorolac (TORADOL) injection 30 mg (COMPLETED) 30 mg, IntraVENous, ONCE, 1 dose, On Wed11/15/24 at 1615, Do not administer for more than 5 days. 1619 (Given - Provid er: Kera Smith RN) ketorolac (TORADOL) injection 30 mg 30 mg, IntraVENous, EVERY 6 HOURS, 12 doses, First dose on Wed11/15/24 at 2200, Last dose on Wed11/18/24 at 1600, Do not administer for more than 5 days. midazolam PF (VERSED) IntraVENous 1 mg (COMPLETED) 1 mg, IntraVENous, ONCE, 1 dose, On Wed11/15/24 at 1630 1620 (Given - Provid er: Kera Smith RN) prochlorperazine (COMPAZINE) injection 10 mg (COMPLETED) 10 mg, IntraVENous, ONCE, 1 dose, On Wed11/15/24 at 1345, If administering IV push, administer at a maximum rate of 5 mg/minute. Patients should remain lying down following administration and be reassessed for relief of nausea and presence of hypotension. Patients should be assisted the first time they get up after administration. 1345 (Given - Provid er: Kera Smith RN) PRN Medication Order 11/13/2024 11/14/2024 11/15/2024 HYDROmorphone HCl PF (DILAUDID) injection 0.5 mg 0.5 mg, IntraVENous, EVERY 3 HOURS PRN, Starting on Wed11/15/24 at 1729, Until Wed11/15/24 at 205, Pain Severe (7-10), Pain Moderate (4-6) OR per patient request for pain score (7-10), If oral and IV narcotics ordered, use oral first and only use IV if oral is ineffective or cannot take oral. Do Not give oral and IV within 1 hour of each other unless specifically ordered. 1738 (Given - Provid er: Kera Smith RN) ondansetron (ZOFRAN) injection 4 mg 4 mg, IntraVENous, EVERY 6 HOURS PRN, Starting on Wed11/15/24 at 1729, Until Wed11/15/24 at 2051, Nausea, Vomiting 1738 (Given - Provid er: Kera Smith RN) documented in this encounter Care Teams Sports Manager Relationship Specialty Start Date End Date Thomas Alas MD [address] [place] [address] PCP - General Family Medicine 11/08/24 documented as of this encounter
--- OUTSIDE RECORDS SUMMARY | 2024-11-15 19:56 | XMS_ITS | Encounter Summary ---
Author Organization [facility] Address [address] [place] [id number] Care Team Providers Care Plastic Process Technician Name Role Phone Thomas Alas MD Primary Care Provider [phone] Reason for Referral * (Routine) - Pending Review Specialty Diagnoses / Procedures Referred By Contac t Referred To Contact Procedures ECG 12 lead Jonelle Harrison MD [address] [place] [phone] Phone: tel: fax: Referral ID Status Reason Start Date Expiration Date V isits Requested Visits Authorized [id number] Pending Review 11/16/2024 11/16/2025 1 1 Reason for Visit * Auth/Cert (Routine) Specialty Diagnoses / Procedures Referred By Contac t Referred To Contact Diagnoses Chest pain chest pain Procedures NO CODED SERVICE Sandeep Casey MD [address] [place] [address] Phone: tel: fax: [facility] [address] [place] [address] Phone: tel: fax: Referral ID Status Reason Start Date Expiration Date Visits Re quested Visits Authorized [id number] 1 1 Encounter Details Date Type Department Care Team (Late st Contact Info) Description 11/15/2024 7:56 PM EDT - 11/17/2024 2:42 PM EDT Hospital Encounter [facility] [address] [place] [address] Sandeep Casey MD [address] [place] [address] Chest pain (Primary Dx) Discharge Disposition: Home-Health Care [facility] (06) Social History Tobacco Use Types Packs/Day Years Used Date Smoking Tobacco: Never Smokeless Tobacco: Never Alcohol Use Standard Drinks/Week Comments Not Currently 0 (1 standard drink = 0.6 oz pur e alcohol) [facility] Utilities Answer Date Recorded In the past 12 months has th e electric, gas, oil, or water company threatened to shut off services in your home? No 11/15/2024 Humiliation, Afraid, Rape, and Kick questionnair e Answer Date Recorded Within the last year, have y ou been afraid of your partner or ex-partner? No 11/15/2024 Emotionally Abused Not on file 11/15/2024 Physically Abused Not on file 11/15/2024 Sexually Abused Not on file 11/15/2024 Overall Financial Resource Strain (CARDIA) Answe r Date Recorded How hard is it for you to pa y for the very basics like food, housing, medical care, and heating? Not hard at all 11/15/2024 Transportation Answer Date Recorded In the past 12 months, has l ack of transportation kept you from medical appointments or from getting medications? No 11/15/2024 Lack of Transportation (Non-Medical) Not on file 11/15/2024 Housing Stability Vital Sign Answer Eugenio e Recorded In the last 12 months, was t here a time when you were not able to pay the mortgage or rent on time? No 11/15/2024 In the past 12 months, how m any times have you moved where you were living? 0 11/15/2024 At any time in the past 12 m [facility], were you homeless or living in a long term (including now)? No 11/15/2024 Hunger Vital Sign Answer Date Recorded Within the past 12 months, y ou worried that your food would run out before you got the money to buy more. Never true 11/16/19 25 Ran Out of Food in the Last Year Not on file 11/15/2024 Comments Unknown Sex and Gender Information Value Date Recorded Sex Assigned at Female 08/17/2024 3:45 PM EDT Legal Sex Female 12:07 AM EDT Gender Identity Female 08/17/2024 3:45 PM EDT Sexual Orientation Heterosexual or Straight 04/2024 3:45 PM EDT documented as of this encounter Last Filed Vital Signs Vital Sign Reading Time Taken Comments Blood Pressure 119/66 11/17/2024 8:00 AM EDT Pulse 72 11/17/2024 8:00 AM EDT Temperature 36.5 C (97.7 F) 11/17/2024 8:00 AM EDT Respiratory Rate 22 11/17/2024 8:00 AM EDT Oxygen Saturation 98% 11/17/2024 8:00 AM EDT Inhaled Oxygen Concentration - - Weight 86.8 kg (191 lb 6.4 oz) 11/17/2024 2:10 A M EDT Height 167.6 cm (5' 6 ) 11/15/2024 8:36 PM EDT Body Mass Index 30.89 11/15/2024 8:36 PM EDT documented in this encounter Functional Status * Question Answer Date of Assessment Author Patient Position Sitting 11/17/2024 4:01 AM EDT Justine Brock RN * Qureshi Fall Risk Question Answer Date of Assessment Author History of Falling, Immediat e or Within 3 Months 0 11/16/2024 8:33 PM EDT Justine Kumar RN Secondary Diagnosis 15 11/16/2024 8:33 PM ED T Justine Kumar RN Ambulatory Aid 0 11/16/2024 8:33 PM EDT Justine Aviles RN Intravenous Therapy/Heparin Lock 0 11/17/19 25 8:33 PM EDT Justine Kumar RN Gait/Transferring 0 11/16/2024 8:33 PM EDT Justine Kumar RN Mental Status 0 11/16/2024 8:33 PM EDT Justine Johnston RN Morse Fall Risk Score 15 11/16/2024 8:33 PM EDT Justine Kumar RN * Cyrus Scale Question Answer Date of Assessment Author Cyrus No Risk Interventions Continue to assess patient according to level of care 11/17/2024 8:15 AM EDT Rafael Perez RN Sensory Perceptions 4 11/17/2024 8:15 AM ED T Rafael Perez RN Moisture 4 11/17/2024 8:15 AM EDT Rafael Luz RN Activity 4 11/17/2024 8:15 AM EDT Rafael Luz RN Mobility 4 11/17/2024 8:15 AM EDT Rafael Luz RN Nutrition 3 11/17/2024 8:15 AM EDT Rafael Luz RN Friction and Shear 3 11/17/2024 8:15 AM EDT Rafael Perez RN Cyrus Scale Score 22 11/17/2024 8:15 AM EDT Rafael Perez RN * Patient's Stated Pain Goal Answer Date of Assessment Author 2 11/17/2024 9:42 AM EDT Rafael Perez RN * [place] Fall Risk Interventions Question Answer Date of Assessment Author [place] Fall Risk Interventions Complete 11/16/2024 8:33 PM EDT Justine Kumar RN * Pain Assessment Timer Question Answer Date of Assessment Author Restart Pain Assessment Timer Yes 11/17/2024 9:42 AM EDT Rafael Perez RN * Sepsis Model Scores Question Answer Date of Assessment Author Early Detection of Sepsis Score 1.53 2:31 PM EDT Delano Guzman Early Detection of Sepsis Score 0.3 2:31 PM EDT Delano Guzman * Pain Assessment Question Answer Date of Assessment Author Pain Location Chest 11/15/2024 8:36 PM EDT Justine Kumar RN Pain Orientation Left 11/15/2024 8:36 PM EDT Justine Kumar RN Pain Interventions Distraction;Repositi on ed 11/17/2024 8:15 AM EDT Rafael Perez RN Pain Radiating Towards L shoulder 8:36 PM EDT Justine Kumar RN Pain Descriptors Crushing;Discomfort; Pr essure 11/15/2024 8:36 PM EDT Justine Kumar RN Pain Onset Ongoing 11/15/2024 8:36 PM EDT Justine Kumar RN Pain Frequency Constant/continuous 11/15/2024 8 :36 PM EDT Justine Kumar RN Response to Interventions minimal improvement 5:42 AM EDT Justine Kmuar RN Pain Type Acute pain 11/16/2024 8:33 PM EDT Justine Kumar RN Clinical Progression Gradually worsening 025 8:15 AM EDT Rafael Perez RN Patient Behaviors Agitated 11/17/2024 8:1 5 AM EDT Rafael Perez RN Pain Assessment 0-10 11/17/2024 8:15 AM EDT Rafael Perez RN * Pain Score Answer Date of Assessment Author 10 - Worst possible pain 11/17/2024 9:42 AM JUNT Rafael Perez RN * Audit Alcohol Screening Question Answer Date of Assessment Author How often do you have a drin k containing alcohol? 0 11/15/2024 8:13 PM EDT Maribel Merchant R N How many standard drinks con taining alcohol do you have on a typical day? No 11/15/2024 8:13 PM JUNT Maribel Merchant R N How often do you have six or more drinks on one occasion? 0 11/15/2024 8:13 PM JUNT Jalil Merchant RN Audit-C Score 0 11/15/2024 8:13 PM JUNT Maribel Mercahnt RN * Question Answer Date of Assessment Author BP 119/66 11/17/2024 8:00 AM EDT Rafael Luz RN Pulse 72 11/17/2024 8:00 AM JUNT Rafael Luz RN Heart Rate Source Monitor 11/17/2024 8:00 AM Rafael Clarke RN * Deterioration Index Score Question Answer Date of Assessment Author Deterioration Index Score 23.79 11/17/2024 2:31 PM EDT Matthias Guzmanq * Head, Ears, Eyes, Nose, and Throat (HEENT) Question Answer Date of Assessment Author Head, Ears, Eyes, Nose, and Throat (WDL) X 11/17/2024 8:15 AM EDT Rafael Perez RN R Eye Intact 11/17/2024 8:15 AM Rafael Sadler RN L Eye Intact 11/17/2024 8:15 AM Rafael Sadler RN R Ear Intact 11/17/2024 8:15 AM Rafael Sadler RN L Ear Intact 11/17/2024 8:15 AM Rafael Sadler RN Nose Intact 11/17/2024 8:15 AM Rafael Sadler RN Throat Intact 11/17/2024 8:15 AM Rafael Sadler RN Tongue [place];Moist 11/17/2024 8:15 AM Rafael Sadler RN Mucous Membrane(s) Moist;[place];Intact 11/17/2024 8:15 A M Rafael Clarke RN Teeth Intact 11/17/2024 8:15 AM Rafael Rucker RN Head and Face Symmetrical 11/17/2024 8:15 AM Rafael Rucker RN Neck Symmetrical 11/17/2024 8:15 AM Rafael Sadler RN Lips Symmetrical 11/17/2024 8:15 AM Rafael Sadler RN * Question Answer Date of Assessment Author MAP (mmHg) 83 11/17/2024 8:00 AM Rafael Sadler RN * Short Portable Mental Status Question Answer Date of Assessment Author What are the date, month, year? 0 8:15 AM Rafael Clarke RN What is the day of the week? 0 11/17/2024 8 :15 AM Rafael Clarke RN What is the name of this place? 0 8:15 AM Rafael Clarke RN What is your phone number? 0 11/17/2024 8:1 5 AM Rafael Clarke RN How old are you? 0 11/17/2024 8:15 AM NINA Valles ageRafael lipscomb RN When were you born? 0 11/17/2024 8:15 AM Rafael Rinaldi RN Who is the current president? 0 11/17/2024 8:15 AM EDT Rafael Perez RN Who was the president before him? 0 025 8:15 AM EDT Rafael Perez RN What was your mother's maiden name? 0 11/17 8:15 AM EDT aRfael Perez RN Can you count backward from 20 by 3s? 0 11/17/2024 8:15 AM EDT Rafael Perez RN Short Portable Mental Score 0 11/17/2024 8: 15 AM EDT Rafael Perez RN * Fall Risk Level Question Answer Date of Assessment Author Mobility zone Low (Green Zone) 11/16/2024 8:33 PM EDT Justine Kumar RN Qrueshi fall risk zone Low (Green Zone) 11/16/2024 8:33 PM EDT Justine Kumar RN Mental status questionaire zone Low (Green Zone) 11/16/2024 8:33 PM EDT Justine Kumar RN * Skin Assessment Sign off Question Answer Date of Assessment Author Dual Sign-off - Admission/Transfer Sherine PRICE 11/15/2024 8:07 PM EDT Justine Kumar RN Any new wounds identified on admission/transfer? Yes 11/15/2024 8:07 PM EDT Justine Kumar RN Provider notified of new wound Yes 11/15/2024 8:07 PM EDT Justine Kumar RN * Question Answer Date of Assessment Author SpO2 98 11/17/2024 8:00 AM EDT Rafael Luz RN * Question Answer Date of Assessment Author BP Location Left arm 11/17/2024 4:01 AM EDT Justine Pool RN BP Method Automatic 11/17/2024 4:01 AM EDT Justine Pool RN Patient Position Sitting 11/17/2024 4:01 AM EDT Justine Brock RN * Question Answer Date of Assessment Author Pulse rate from Plethysmogram (bpm) 71 11/17 8:00 AM EDT Rafael Perez RN * Question Answer Date of Assessment Author Swallow Able to swallow gina ds and liquids without difficulty 11/17/2024 8:15 AM Rafael Clarke RN * Question Answer Date of Assessment Author Bilateral Breath Sounds Clear 11/17/2024 8:15 A M Rafael Clarke RN Respiratory Pattern Normal 11/17/2024 8:15 AM ED Rafael Jaffe RN Chest Assessment Chest expansion symmetrical 11/17/2024 8:15 AM Rafael Clarke RN Respiratory Effort Unlabored 11/17/2024 8:15 AM Rafael Clarke RN Respiratory Depth/Rhythm Regular 11/17/2024 8:15 AM Rafael Clarke RN Dyspnea Occurrence Lying flat 11/15/2024 8:07 PM Justine Dia RN * Question Answer Date of Assessment Author Cardiac Rhythm NSR 11/17/2024 8:15 AM Rafael Hansen RN Cardiac Regularity Regular 11/17/2024 8:15 AM Rafael Clarke RN Foster Winder Status On 11/17/2024 8:15 AM Rafael Clarke RN Tele[id number] 11/16/2024 8:42 AM Desmond Daniels RN Jugular Venous Distention (JVD) No 8:15 AM Rafael Clarke RN Cardiac Symptoms None 11/17/2024 8:15 AM Rafael López RN Heart Sounds S1, S2 11/17/2024 8:15 AM Rafael Sadler RN * Gastrointestinal Question Answer Date of Assessment Author Passing Flatus Yes 11/17/2024 8:15 AM Rafael Clarke RN Abdominal Tenderness Soft;No guarding;Nontender 11/17/2024 8:15 AM Rafael Clarke RN Bowel Sounds (All Quadrants) Active 11/17/2024 8:15 AM Rafael Clarke RN Gastrointestinal (WDL) X 8:15 AM Rafael Clarke RN Abdomen Inspection Soft;Nondistended 11/17/2024 8:15 AM Rafael Clarke RN Gastrointestinal Symptoms None 2024 8:15 AM Rafael Clarke RN Nausea Precipitating Factors Anxiety/stress 11/16/2024 3:52 AM EDT Justine Kumar RN Constipation Precipitating Factors Other (Comment);Diet 11/16/2024 8:42 AM EDT Desmond Bright RN Bowel Sounds All quadrants 11/17/2024 8:15 AM EDT Rafael Perez RN * Peripheral Vascular Question Answer Date of Assessment Author Peripheral Vascular (WDL) X 11/17/2024 8:15 AM EDT Rafael Perez RN Capillary Refill Less than/equal to 2 seconds (All extremities) 11/17/2024 8:15 AM EDT Rafael Perez RN Pulses Right radial;Left radial;Right pedal;Left pedal 11/17/2024 8:15 AM EDT Rafael Perez RN Cyanosis None 11/17/2024 8:15 AM EDT Rafael Luz RN Edema Right lower extremity;Left lower extremity 11/15/2024 8:07 PM EDT Justine Kumar RN * RUE Neurovascular Assessment Question Answer Date of Assessment Author Right Radial Pulse +2 11/17/2024 8:15 AM EDT Rafael Perez RN * LUE Neurovascular Assessment Question Answer Date of Assessment Author Left Radial Pulse +2 11/17/2024 8:15 AM EDT Rafael Perez RN * RLE Neurovascular Assessment Question Answer Date of Assessment Author RLE Edema Non-pitting 11/15/2024 8:07 PM EDT Justine Pool RN Right Posterior Tibial Pulse +2 11/16/2024 8 :42 AM EDT Desmond Bright RN Right Pedal Pulse +2 11/17/2024 8:15 AM EDT Rafael Perez RN * LLE Neurovascular Assessment Question Answer Date of Assessment Author LLE Edema Non-pitting 11/15/2024 8:07 PM EDT Justine Pool RN Left Posterior Tibial Pulse +2 11/16/2024 8: 42 AM EDT Desmond Bright RN Left Pedal Pulse +2 11/17/2024 8:15 AM EDT Rafael Lopez RN * Musculoskeletal Question Answer Date of Assessment Author Musculoskeletal (WDL) WDL 11/17/2024 8:15 AM EDT Rafael Perez RN * Psychosocial Question Answer Date of Assessment Author Patient Behaviors/Mood Agitated;Cooperative 11/17/2024 8:15 AM EDT Rafael Perez RN Needs Expressed Other (Comment) 11/17/2024 8:15 AM EDT Rafael Perez RN Psychosocial (WDL) X 11/17/2024 8:15 AM EDT Rafael Perez RN Ability to Express Feelings Able to express 11/17/2024 8:15 AM EDT Rafael Perez RN Ability to Express Needs Able to express 11/17/2024 8: 15 AM EDT Rafael Perez RN Ability to Express Thoughts Able to express 11/17/2024 8:15 AM EDT Rafael Perez RN Ability to Understand Others Understands 11/17/2024 8:15 AM EDT Rafael Perez RN * Qureshi Fall Risk Question Answer Date of Assessment Author History of Falling, Immediat e or Within 3 Months 0 11/16/2024 8:33 PM EDT Justine Kumar RN Secondary Diagnosis 15 11/16/2024 8:33 PM ED Justine Rasmussen RN Ambulatory Aid 0 11/16/2024 8:33 PM EDT Justine Aviles RN Intravenous Therapy/Heparin Lock 0 11/17/19 8:33 PM EDT Justine Kumar RN Gait/Transferring 0 11/16/2024 8:33 PM EDT Justine Kumar RN Mental Status 0 11/16/2024 8:33 PM EDT Justine Johnston RN Qureshi Fall Risk Score 15 11/16/2024 8:33 PM EDT Justine Kumar RN * Cyrus Scale Question Answer Date of Assessment Author Cyrus No Risk Interventions Continue to assess patient according to level of care 11/17/2024 8:15 AM EDRafael Jaffe RN Sensory Perceptions 4 11/17/2024 8:15 AM ED T Rafael Perez RN Moisture 4 11/17/2024 8:15 AM EDT Rafael Luz RN Activity 4 11/17/2024 8:15 AM EDT Rafael Luz RN Mobility 4 11/17/2024 8:15 AM EDT Rafael Luz RN Nutrition 3 11/17/2024 8:15 AM EDT Rafael Luz RN Friction and Shear 3 11/17/2024 8:15 AM EDT Rafael Perez RN Cyrus Scale Score 22 11/17/2024 8:15 AM EDT Rafael Perez RN * Charting Type Question Answer Date of Assessment Author Charting Type Shift assessment 11/17/2024 8:15 AM EDT aRfael Perez RN * Patient's Stated Pain Goal Answer Date of Assessment Author 2 11/17/2024 9:42 AM EDT Rafael Perez RN * Values/Beliefs Question Answer Date of Assessment Author Cultural Requests During Hospitalization none 11/15/2024 8:13 PM EDT Maribel Merchant R N Spiritual Requests During Hospitalization none 11/15/2024 8:13 PM EDT Maribel Merchant R N * Genitourinary Question Answer Date of Assessment Author Genitourinary (WDL) WDL 11/17/2024 8:15 AM ED T Rafael Perez RN * Patient Monitoring Question Answer Date of Assessment Author Frequency of Checks Twice per hour, standard 11/16/2024 8:33 PM EDT Justine Kumar RN * Safe Environment Question Answer Date of Assessment Author Chair Alarms Off 11/16/2024 8:33 PM EDT Justine Pool RN Arm Bands On ID;Allergies 11/16/2024 8:33 PM EDT Justine Pool RN Side Rails/Bed Safety 2/4 11/16/2024 8:33 PM EDT Justine Kumar RN Bed Alarms Off 11/16/2024 8:33 PM EDT Justine Pool RN The Patient's Environment is Safe Yes 11/16/2024 8:33 PM EDT Justine Kumar RN * Mobility Question Answer Date of Assessment Author Anti-Embolism Devices Bilateral;Sequenti al compression devices, below knee 11/16/2024 8:33 PM JUNT Justine Kumar RN Anti-Embolism Intervention Off 11/16/2024 8:33 PM EDT Justine Kumar RN Positioning Frequency Able to turn self 11/17/19 8:33 PM EDT Justine Kumar RN * Hygiene Question Answer Date of Assessment Author Is Patient Total Care? No 11/16/2024 8:06 PM EDT Olga Vickers PCT CHG (Chlorhexidine Gluconate ) Hygiene Wipes 11/17/2024 12:43 AM EDT Justine Kumar RN * Precautions Question Answer Date of Assessment Author Precautions Bleeding 11/16/2024 8:33 PM EDT Justine Pool RN * Comfort and Environment Interventions Question Answer Date of Assessment Author Warm [place] Applied 11/16/2024 8:06 PM EDT Olga Salazar PCT Comfort Gown changed 11/16/2024 8:06 PM EDT Olga Salazar PCT Additional Comfort/Environmental Interventions Warm blanket 11/16/2024 8:06 PM EDT Olga Vickers PCT * ADL Screening Question Answer Date of Assessment Author Do you snore or wake up gasp ing for air? Yes 11/15/2024 8:12 PM EDT Maribel Merchant R N Can you bring in your CPAP/BiPAP from home? No 11/15/2024 8:12 PM EDT Maribel Merchant RN Patient's Vision Adequate to Safely Complete Daily Activities Yes 11/15/2024 8:12 PM EDT Maribel Merchant R N Patient's Judgment Adequate to Safely Complete Daily Activities Yes 11/15/2024 8:12 PM EDT Maribel Merchant R N Patient's Memory Adequate to Safely Complete Daily Activities Yes 11/15/2024 8:12 PM EDT Maribel Merchant R N Patient Able to Express Needs/Desires Yes 11/15/2024 8:12 PM EDT Maribel Merchant R N Dressing Independent 11/15/2024 8:12 PM JUNT Maribel Merchant RN Grooming Independent 11/15/2024 8:12 PM EDT Maribel Merchant RN Feeding Independent 11/15/2024 8:12 PM JUNT Maribel Merchant RN Bathing Independent 11/15/2024 8:12 PM EDMaribel Quintero RN Toileting Independent 11/15/2024 8:12 PM Maribel Cheng RN In/Out Bed Independent 11/15/2024 8:12 PM Maribel Cheng RN Walks in Home Independent 11/15/2024 8:12 PM Maribel Cheng RN Weakness of Legs None 11/15/2024 8:12 PM EDT Maribel Harley RN Weakness of Arms/Hands None 11/15/2024 8:12 PM EDT Maribel Merchant RN Hearing - Right Ear Functional 11/15/2024 8:12 PM ED T Maribel Merchant RN Hearing - Left Ear Functional 11/15/2024 8:12 PM Maribel Cheng RN Which is your dominant hand? Right 11/15/2024 8 :12 PM Maribel Cheng RN * Consults Question Answer Date of Assessment Author Spiritual Care Consult Needed No 11/15/2024 8:13 PM Maribel Cheng RN Social Services Consult Needed Yes (Comment) 11/15/2024 8:13 PM EDMaribel Quintero R N Palliative Care Consult Needed No 11/15/2024 8:13 PM Maribel Cheng R N * Therapy Consults Question Answer Date of Assessment Author PT Evaluation Needed 2 11/15/2024 8:12 PM Maribel Andrews RN OT Evaluation Needed 2 11/15/2024 8:12 PM Maribel Andrews RN REPAIRER KILN CAR Evaluation Needed 2 11/15/2024 8:12 PM Maribel Cheng RN * Assistive Devices Question Answer Date of Assessment Author Assistive Devices Eyeglasses 11/15/2024 8:12 PM Maribel Cheng RN * Provider Notification Question Answer Date of Assessment Author Provider Role Attending physician 11/16/2024 1 2:30 PM EDYue Frost RN Communication Comments pt complaint of p ain at 8, no pain meds ordered for pain greater than 7 11/16/2024 12:30 PM EDT Yue Munoz, DEE Provider Name Horani 11/16/2024 12:30 PM EDT Yue Munoz RN Method of Communication Epic Chat 11/17/19 12:30 PM EDT Yue Munoz RN Reason for Communication Other (Comment) 12:30 PM EDT Yue Munoz RN Response Waiting for response 11/16/2024 12:30 PM EDT Yue Munoz RN * [place] Fall Risk Interventions Question Answer Date of Assessment Author [place] Fall Risk Interventions Complete 11/16/2024 8:33 PM EDT Justine Kumar RN * Suicidal Ideation Question Answer Date of Assessment Author 1. Wish to be (Lifetime) No 11/15/2024 8:14 PM EDT Maribel Merchant RN 2. Non-Specific Active Suici martha Thoughts (Lifetime) No 11/15/2024 8:14 PM EDT Maribel Merchant R N * Pain Assessment Question Answer Date of Assessment Author Pain Location Chest 11/15/2024 8:36 PM EDT Justine Kumar RN Pain Orientation Left 11/15/2024 8:36 PM EDT Justine Kumar RN Pain Interventions Distraction;Repositi on ed 11/17/2024 8:15 AM EDT Rafael Perez RN Pain Radiating Towards L shoulder 8:36 PM EDT Justine Kumar RN Pain Descriptors Crushing;Discomfort; Pr essure 11/15/2024 8:36 PM EDT Justine Kumar RN Pain Onset Ongoing 11/15/2024 8:36 PM EDT Justine Kumar RN Pain Frequency Constant/continuous 11/15/2024 8 :36 PM EDT Justine Kumar RN Response to Interventions minimal improvement 5:42 AM EDT Justine Kumar RN Pain Type Acute pain 11/16/2024 8:33 PM EDT Justine Kumar RN Clinical Progression Gradually worsening 8:15 AM EDT Rafael Perez RN Patient Behaviors Agitated 11/17/2024 8:1 5 AM EDT Rafael Perez RN Pain Assessment 0-10 11/17/2024 8:15 AM EDT Rafael Perez RN * Respiratory Interventions Question Answer Date of Assessment Author Respiratory Interventions Performed Cough and deep breathe 11/15/2024 8:07 PM EDT Justine Kumar RN * Cough and Deep Breathe Question Answer Date of Assessment Author Cough and Deep Breathe Yes 11/15/2024 8:07 PM EDT Justine Kumar RN * Integumentary Question Answer Date of Assessment Author Skin Color Appropriate for race 11/17/2024 8:15 AM Rafael Best RN Skin Condition/Temp Warm;Dry 11/17/2024 8:15 AM ED Rafael Jaffe RN Skin Integrity Other (Comment) 11/17/2024 8:15 AM JUNT Rafael Perez RN Skin Turgor Non-tenting 11/17/2024 8:15 AM EDT Rafael Luz RN Integumentary Additional Assessments Tattoos;Piercings 11/16/2024 8:42 AM EDT Desmond Bright RN Integumentary (WDL) X 11/17/2024 8:15 AM ED Rafael Jaffe RN Does patient have tattoos? Yes 11/17/2024 8:15 AM Rafael Clarke RN List Piercings Remaining Ears 11/17/2024 8:15 AM Rafael Clarke RN * Pain Score Answer Date of Assessment Author 10 - Worst possible pain 11/17/2024 9:42 AM Rafael Clarke RN * Question Answer Date of Assessment Author Urinary Frequency Adequate 11/16/2024 7:00 PM Desmond Hebert RN Urinary Incontinence No 11/16/2024 7:00 PM Desmond Daniels RN * Audit Alcohol Screening Question Answer Date of Assessment Author How often do you have a drin k containing alcohol? 0 11/15/2024 8:13 PM Maribel Cheng R N How many standard drinks con taining alcohol do you have on a typical day? No 11/15/2024 8:13 PM Maribel Cheng R N How often do you have six or more drinks on one occasion? 0 11/15/2024 8:13 PM Jalil Cheng RN Audit-C Score 0 11/15/2024 8:13 PM Maribel Cheng RN * Question Answer Date of Assessment Author Patient Goal for Treatment d/c 11/16/2024 8:0 0 PM JUNT Justine Kumar RN * Drug Screening Question Answer Date of Assessment Author Have you used any substances (canabis, cocaine, heroin, hallucinogens, inhalants, etc.) in the past 12 months? No 11/15/2024 8:13 PM Maribel Cheng R N Have you used any prescripti on drugs other than prescribed in the past 12 months? No 11/15/2024 8:13 PM Maribel Cheng R N * Question Answer Date of Assessment Author BP 119/66 11/17/2024 8:00 AM Rafael Sadler RN Temp 97.7 11/17/2024 8:00 AM Rafael Sadler RN Temp src Temporal 11/17/2024 8:00 AM Rafael Sadler RN Pulse 72 11/17/2024 8:00 AM Rafael Sadler RN Resp 22 11/17/2024 8:00 AM Rafael Sadler RN Heart Rate Source Monitor 11/17/2024 8:00 AM Rafael Clarke RN * Care Plan - Safety Goals Question Answer Date of Assessment Author Free from fall injury Assess patient frequently for physical needs 11/16/2024 8:33 PM Justine Dia RN * Modified Malnutrition Screening Tool (MST) Question Answer Date of Assessment Author Have you recently lost weigh t without trying? 0 11/15/2024 8:13 PM Maribel Cheng R N Have you been eating poorly because of a decreased appetite? 0 11/15/2024 8:13 PM Asad Cheng RN On home tube feeding or TPN? 0 11/15/2024 8 :13 PM Maribel Cheng RN Does patient have a stage 2- 4 pressure ulcer? 0 11/15/2024 8:13 PM Maribel Cheng R N * Weight Loss Score Answer Date of Assessment Author 0 11/15/2024 8:13 PM Mireya Cheng RN * Malnutrition Score Answer Date of Assessment Author 0 11/15/2024 8:13 PM EDT Mireya Merchant RN documented as of this encounter Discharge Summaries * Sandeep Casey MD - 11/17/2024 10:39 AM EDT Images from the original note were not included. Hospital Medicine Discharge Summary Admission Date: 11/15/2024 7:56 PM Total duration of encounter: 2 days Final Discharge Diagnosis: # Epigastric pain, improved # Dilated CBD # Pericarditis # Hx of coronary artery dissection # Myocardial bridging of mid LAD # NIDDM # Gastroparesis # Hypothyroidism # Chronic pain syndrome Admission Diagnosis: Chest pain [R07.9] Hospital course: Surgical, Invasive or Diagnostic Procedures Done During Admission: None Consultations During Admission: Cardiology and Gastroenterology 34 yo female with HTN, HLD, asthma, RICHAR, hypothyroidism, GERD, IBS, fibromyalgia, T2DM, median arcuate ligament syndrome s/p celiac plexus block and MALS release, morbid obesity s/p sleeve gastrectomy, extensive chronic adhesions and recurrent obstructions, and gastroparesis s/p multiple infusions a nd J-tube c/b infection and removal presented to the ER at [facility] complaining of chest and RUQ pain. At [facility], troponin and EKG were normal. CT chest/abd/pelvis noted CBD dilation and apperance of complex inflammatory changes. Patient has required multiple doses of opiates and antiemetics to co ntrol symptoms. Request to transfer to the [facility] where much of her advanced care has been provided with Specific concern that she may need ERCP/advanced endoscopy to further evaluation, but with no specific date for transfer so patient went to [facility] in [place] as direct admission from [facility] due to with chest pain radiating to shoulder and back with intermittent sob. She was transferred to [facility]; Pt is well known to [facility] cardi[facility] with hx spontaneous coronary dissection, pericarditis. she was recently admitted on 11/01/24, She was evaluated by cardiology team. She u nderwent stress test on 11/10, the study did state Normal global left ventricular function with EF 73%. TID index score is 1.10 and No transient ischemia dilatation. Negative Lexiscan ECG stress testfor ischemia. Patient continued to have chest pain during her hospital stay. Serial troponin and ECGs were rather unremarkable. Cardiology was concerned for pericarditis and she was started on colchicine, she was discharged on colchicine 0.3mg every other day. CTA chest obtained on 11/11 showed no acute pulmonary embolism and no acute pulmonary process. Today; Pt is afebrile, VSS. First and second trop were both less than 6. EKG normal. CBC ok except HGB 9.1, BNP 530. CXR normal. Pt was given ASA, nitroglycerin, compazine, benedryl, fentanyl and dilaudid with no relief, on examination, patient still have pain that is moderate in intensity radiatiog to the left shoulder and back. # Epigastric pain, improved: # Dilated CBD: - MRCP showed mild dilatation of the intrahepatic bile ducts without obstruction. - LFT are WNL. - GI recommended ERCP and EUS outpatient. # Pericarditis - POA. - Continue home colchicine. # Hx of coronary artery dissection: # Myocardial bridging of mid LAD - Continue aspirin, Plavix, Toprol, verapamil. # NIDDM: - Continue metformin. # Gastroparesis - On TPN. - Diet as tolerated. # Hypothyroidism: - Continue liothyronine and levothyroxine. # Chronic pain syndrome: - Continue Parma. Kenisha Alas MD, [place] is advised to follow up with you within 1-2 weeks. Items to follow up in ambulatory setting: None Follow-up with: Cardiology and Gastroenterology Scheduled appointments: Future Appointments Date Time Provider Department Center 11/28/2024 11:00 AM Wali Collins MD [facility] 12/04/2024 10:00 AM Katie Altamirano MD [facility] Your medication list START taking these medications Instructions Last Dose Given Next Dose Due traMADol 50 mg tablet Commonly known as: Ultram CONTINUE taking these medications Instructions Last Dose Given Next Dose Due acetaminophen 325 mg tablet Commonly known as: Tylenol ALBUTEROL INHL aspirin 81 mg chewable tablet Chew 1 tablet (81 mg) with breakfast for 120 doses. clopidogrel 75 mg tablet Commonly known as: Plavix Take 1 tablet (75 mg) by mouth in the morning for 120 doses. colchicine 0.6 mg tablet Take 0.5 tablets (0.3 mg) by mouth every other day. Do not start before November 14, 2024. escitalopram 20 mg tablet Commonly known as: Lexapro fentaNYL 25 mcg/hr Commonly known as: Duragesic fentaNYL 12 mcg/hr Commonly known as: Duragesic HYDROcodone-acetaminophen 5-325 mg tablet Commonly known as: Parma hydrocortisone 10 mg tablet Commonly known as: [...] 30 mg tablet Commonly known as: Remeron naloxone 0.4 mg/mL injection Commonly known as: Narcan Infuse 1 mL (0.4 mg) into a venous catheter if needed for opioid reversal. omeprazole [address] capsule Commonly known as: PriLOSEC prucalopride 2 mg tablet ranolazine 500 mg 12 hr tablet Commonly known as: Ranexa Take 1 tablet (500 mg) by mouth two times daily for 189 doses. Do not crush, chew, or split. rosuvastatin 40 mg tablet Commonly known as: [...] every 8 (eight) hours for 287 doses. Juan is allergic to codeine, nsaids (non-steroidal anti-inflammatory drug), and adhesive. Disposition: Home-Health Care [facility] () Discharge Condition: Stable Code Status: Full Code Diagnostic Results Hematology: Results from last 7 days Lab Units 11/17/24 0517 11/16/24 0536 11/12/24 0630 11/11/24 1529 CRP mg/L -- -- -- 13.4* WBC AUTO 10*3/uL 2.92* 3.15* < > -- HEMOGLOBIN g/dL 8.5* 7.8* < > -- HEMATOCRIT % 25.9* 23.8* < > -- MCV fL 89.9 90.5 < > -- PLATELETS AUTO 10*3/uL 292 277 < > -- < > = values in this interval not displayed. Chemistry: Results from last 7 days Lab Units 11/17/24 0517 11/16/24 0536 11/13/24 0703 SODIUM mmol/L 142 141 140 POTASSIUM mmol/L 3.6 3.4* 3.8 CHLORIDE mmol/L 111* 111* 108* CO2 mmol/L 25 24 25 BUN mg/dL 10 14 9 CREATININE mg/dL 0.72 0.77 0.72 GLUCOSE mg/dL 81 86 81 MAGNESIUM mg/dL 1.9 -- -- CALCIUM mg/dL 8.0* 7.9* 8.4* Results from last 7 days Lab Units 11/17/24 0517 11/16/24 0536 AST U/L 20 21 ALT U/L 11 9 ALK PHOS U/L 46 47 BILIRUBIN TOTAL mg/dL 0.3 0.3 BILIRUBIN DIRECT mg/dL 0.0 0.1 Test Results Pending At Discharge: Diet at the time of discharge: cardiac diet Nutrition Screen Activity: Normal activity as tolerated Objective Blood pressure 115/78, pulse 67, temperature 36.6 ??C (97.9 ??F), temperature source Temporal, resp. rate 15, height 1.676 m (5' 6 ), weight 86.8 kg (191 lb 6.4 oz), SpO2 100%. General: Alert and oriented x3. Cardiology: Normal rate, regular rhythm. Lungs: Clear to auscultation, no wheezes, rales or rhonchi, symmetric air entry. Abdomen: Soft, non tender, non distended. Total time for discharge - review of data, exam, discussion with providers and care-team, med-rec and orders, arranging follow up, counseling of patient and/or family and documentation was 30 minutes. Signed Sandeep Casey MD [facility] Medicine 11/17/2024 10:39 AM CC: MD Evette documented in this encounter Discharge Instructions * Discharge Instr - Activity* Nathalie Oliveira LPN - 11/17/2024 9:08 AM EDT Activity as tolerated Fall risk precautions * Discharge Instr - Diet* Nathalie Oliveira LPN - 11/17/2024 9:08 AM EDT Regular diet, thin liquids Resume home TPN * Appointments* May Emery RN - 11/17/2024 9:18 AM EDT Plan of Treatment - Upcoming Encounters Upcoming Encounters Date Type Department Care Team (Latest Contact Info) Description 11/27/2024 9:00 AM EDT [facility] Hematology/Oncology [address] [place] [address] [place] [address] Hodges dressing and cap change;Labs as needed per patient 11/30/2024 8:30 AM EDT [facility] Gastroenterology [address] [id number] Georgina Barkley MD [facility] [address] [place], [place] [id number] HPN/No RD available 12/04/2024 9:15 AM EDT Infusion Center Hematology/Oncology [address] [place], [place] [address] [place] [address] Hodges dressing and cap change;Labs as needed per patient Scheduled Appointments -Please follow up with the providers listed above.?? -If you are unable to keep your appointments, please call to reschedule as soon as possible.?? -Failure to cancel/reschedule your appointments, may result in dismissal from your medical providers practice(s).? * Discharge Instr - Other Orders* May Emery RN - 11/17/2024 9:09 AM EDT Single Lumen Implantable Port 10/16/24 Right Chest: keep clean and dry. Monitor for bleeding and signs/symptoms of infection (increased redness, swelling, pain, and warmth around the wound, increaseddrainage) If any of these symptoms occur please contact your PCP as soon as possible. Right groin: Monitor for bleeding and signs/symptoms of infection (increased redness, swelling, pain, and warmth around the wound, increased drainage) If any of these symptoms occur please contact your PCP as soon as possible. Recommended care: Wound location: left abdomen 1. Cleanse the wound thoroughly with normal saline. 2. Gently pat the wound and surrounding skin dry. 3. Cut Mesalt to fit the exact size and shape of the wound. 4. Apply the Mesalt directly to the wound bed, ensuring full coverage of all wound surfaces. 5. Cover with a Telfa island dressing. 6. Change dressing daily, or sooner if it becomes soiled. documented in this encounter Medications at Time [...] on the skin every 3rd (third) day. Give with 25 mcg patch fentaNYL (Duragesic) 25 mcg/hr Place 1 patch on the skin every 3rd (third) day. HYDROcodone-acet aminophen (Parma) 5-325 mg tablet Take 2 tablets by mouth every 4 (four) hours if needed. hydrocortisone (Cortef) 10 mg tablet Take 10 [...] 287 doses. 90 tablet 3 11/07/2024 5 documented as of this encounter Progress Notes * Deepika Diallo - 11/17/2024 11:15 AM EDT discharge planning: to return Home with [id number] resuming Patient came to this admission from Home with [facility]; [id number] confirmed Patient is active on their services; added [id number] to AVS and updates sent via GoTable system 1157 AVS sent to [address], via GoTable system * Arabella Patel, BETH - 11/17/2024 10:06 AM EDT Gastroenterology/Hepatology Progress Note IDENTIFYING DATA PATIENT: Juan Kong ADMIT DATE: 11/15/2024 TIME OF EVALUATION: 11/17/2024 10:06 AM Reason for Consult: CBD dilation and appearance of complex inflammatory changes Admitting Physician: Sandeep Casey MD SUBJECTIVE/INTERVAL HISTORY Juan Kong's overnight events were reviewed. Patient seen and evaluated, resting in chair at bedside. She reports continued abdominal pain and nausea after eating, which is controlled at this time. MRCP yesterday was inconclusive. LFTs are WNL. OBJECTIVE MEDICATIONS SCHEDULED: aspirin, 81 mg, oral, Daily with breakfast clopidogrel, 75 mg, oral, Daily colchicine, 0.3 mg, oral, Every other day escitalopram, 20 mg, oral, Daily levothyroxine, 75 mcg, oral, Daily before breakfast liothyronine, 5 mcg, oral, Daily metoprolol succinate XL, 25 mg, oral, Daily mirtazapine, 45 mg, oral, Nightly pantoprazole, 40 mg, oral, BID AC ranolazine, 500 mg, oral, BID rosuvastatin, 40 mg, oral, Nightly sucralfate, 1 g, oral, Before meals & nightly traZODone, 100 mg, oral, Nightly verapamil, 40 mg, oral, q8h TANIA PRNs: acetaminophen, 650 mg, q6h PRN albuterol, 2 puff, q6h PRN HYDROcodone-acetaminophen, 2 tablet, q4h PRN hydrOXYzine HCL, 50 mg, Nightly PRN promethazine, 25 mg, BID PRN sennosides-docusate sodium, 1 tablet, BID PRN sodium chloride, 10 mL, q8h PRN Physical VITALS: BP 115/78 (BP Location: Left arm, Patient Position: Sitting) Pulse 67 Temp 36.6 ??C (97.9 ??F) (Temporal) Resp 15 Ht 1.676 m (5' 6 ) Wt 86.8 kg (191 lb 6.4 oz) SpO2 100% BMI 30.89 kg/m?? GEN: Alert and oriented x3, NAD CV: Regular rate and rhythm PULM: Breathing comfortably ABD: Soft, non-distended NEURO: Moves all visualized extremities spontaneously LABS AND IMAGING CBC: Results from last 7 days Lab Units 11/17/24 0511/16/2453511/13/24 0703 WBC AUTO 10*3/uL 2.92* 3.15* 3.34* RBC AUTO 10*6/uL 2.88* 2.63* 2.88* HEMOGLOBIN g/dL 8.5* 7.8* 8.6* HEMATOCRIT % 25.9* 23.8* 26.2* MCV fL 89.9 90.5 91.0 RDW % 14.6 15.3* 14.6 PLATELETS AUTO 10*3/uL 292 277 257 PT/INR BMP: Results from last 7 days Lab Units 11/17/24 0511/16/2436 11/13/24 0703 SODIUM mmol/L 142 141 140 POTASSIUM mmol/L 3.6 3.4* 3.8 CHLORIDE mmol/L 111* 111* 108* BUN mg/dL 10 14 9 CREATININE mg/dL 0.72 0.77 0.72 EGFR mL/min/1.73m*2 111.8 103.1 111.8 GLUCOSE mg/dL 81 86 81 LFTs: Results from last 7 days Lab Units 11/17/2451611/16/2436 BILIRUBIN TOTAL mg/dL 0.3 0.3 BILIRUBIN DIRECT mg/dL 0.0 0.1 ALK PHOS U/L 46 47 AST U/L 20 21 ALT U/L 11 9 ALBUMIN g/dL 3.2* 3.2* TOTAL PROTEIN g/dL 5.2* 5.3* B12/Folate/Iron studies: No results found for: [id number] , FOLATE , IRON , TIBC , UIBC , IRONSAT , FERRITIN Viral Hepatitis No results found for: HEPAIGM , HAV , HEPBSAG , HEPBSAB , HEPBEAB , HEPBIGM , HEPBCAB , HEPBCOREAB , HBVNAT , HCVSCR , HEPCAB , HCVNAT , HCVPCR , HCVTMA Liver workup No results found for: MISAEL , SMOOTHMUSCAB , CERULOPLSM , [id number] , TTGA , IGA , TSH , FREET4 , AFP Pancreatitis Lab Results Component Value Date CALCIUM 8.0 (L) 11/17/2024 IMAGING: MRCP 11/16/24: IMPRESSION: *Suggestion of T2 hypointense filling defects within the common bile duct on the 3-D MRCP images, however it is unclear on this study whether this represents true filling defects such as stones or issimply artifactual in nature. The common bile duct cannot be visualized well enough to accurately measure size, though is not likely significantly dilated. If there remains high clinical concern for choledocholithiasis further assessment with ERCP would be suggested. *Mild dilatation of the intrahepatic bile ducts. Numerous benign hepatic cysts as well. *Status post cholecystectomy. *Mild splenomegaly. *Mild dilatation of the visualized portions of ascending colon and transverse colon. CTA chest/abdomen/pelvis 11/08/24: FINDINGS: Organs: Liver is normal in size with multiple well-defined low-density lesions compatible with cysts. There is mild unchanged intrahepatic biliary ductal prominence. There are findings of a prior cholecystectomy. Stomach shows evidence of prior gastric bypass procedure.Pancreas appears normal. Normal adrenal glands. Kidneys demonstrate normal corticomedullary enhancement. No suspicious renal masses. No calculi. GI/Bowel: Moderate amount of stool in the right and transverse colon which could reflect constipation in the proper clinical setting. Normal TI. There are findings of a prior appendectomy. No evidence of pathologic mesenteric adenopathy or mass. ASSESSMENT AND PLAN Juan Kong is a 34 y.o. female who transferred to [facility] for chest pain. CT done at [facility]SH showed CBD dilation and appearance of complex inflammatory changes. Assessment CBD dilation Recent CT chest/abdomen/pelvis at outside facility noted CBD dilatation and appearance of complex inflammatory changes LFTs WNL Patient is s/p cholecystectomy MRCP 11/16/24 demonstrated possible CBD filling defects, although could not rule out artifact. CBD unable to be visualized well enough to measure accurately, though not significantly dilated. Mild dilatation of the intrahepatic bile ducts with numerous benign hepatic cysts Constipation noted on CT imaging Dysphagia s/p EGD with CRE [facility] History of gastroparesis s/p J-tube placement c/b infection with removal NSTEMI 2/2 spontaneous coronary artery dissection Plan Patient will need outpatient EUS +/- ERCP for further assessment of CBD ductal dilatation, as MRCP was inconclusive. Plavix will need to be held at least 5 days prior to procedure if okay with prescriber Okay for regular diet as tolerated from GI standpoint Recommend aggressive bowel regimen with daily MiraLAX, Colace, and suppositories PRN given constipation noted on imaging Trend daily LFTs Remainder of care per primary including pain/nausea control PRN GI will respectfully sign off; however, we are readily available if additional questions or concerns arise. We will arrange for outpatient EUS +/- ERCP. The case will be discussed with the attending physician Gastroenterology 6 am to 4 pm weekdays in house: [phone] 4 pm to 6 am or weekends: Please contact the dust collector operator to page the fellow component overhaul operator * Haroon Granados MD - 11/17/2024 7:49 AM EDT Images from the original note were not included. Cardiology Progress Note Subjective 11/17: Patient seen and examined at bedside today. No acute events overnight. Plans noted for EUS +/- ERCPper GI in the outpatient setting. From a cardiac standpoint, patient is cleared for discharge and will need outpatient follow-up. Subjective: Juan Kong is a 34 y.o. female w/ PMHx significant for HTN, HLD, asthma, RICHAR, hypothyroidism, GERD, IBS, fibromyalgia, T2DM, median arcuate ligament syndrome s/p celiac plexus block and MALS release, morbid obesity s/p sleeve gastrectomy, extensive chronic adhesions and recurrent obstructions, and gastroparesis s/p multiple infusions and J-tube c/b infection and removal who came as a direct admission from [facility] due to chest pain. Patient was hospitalized on 10/30/2024 and 11/09/2024 for similar symptoms, and required coronary angiography [...] as urinary retention that required Costello placement. ESR and CRP were elevated, so patient was started on colchicine 0.3 mg every other day due to interaction with verapamiland Ranexa. Patient states she had similar chest pain sharp shooting radiating to the left shoulder, back, and now to the right chest region. Feels better now that she was given pain medications. Patient was then taken to [facility] near [place], and was transferred from there to [facility] for appropriate workup of chest pain and continuation of care. TTE on 10/31/2024 shows EF 53% with biplane calculations, and 50 to 55% on estimation with regional WMA basal inferolateral, mid anterior, mid anteroseptal, mid inferoseptal, mid inferolateral and apical lateral left ventricular wall segments. Lexiscan 11/10/2024 negative with TID of 1.10. Objective Current Medications[1] Objective: Patient Vitals for the past 24 hrs: BP Temp Temp src Pulse Resp SpO2 Weight 11/17/24 0401 115/78 -- -- 67 15 100 % -- 11/17/24 0210 -- -- -- -- -- -- 86.8 kg (191 lb 6.4 oz) 11/17/24 0040 107/60 -- -- 66 15 100 % -- 11/16/24 2051 126/68 36.6 ??C (97.9 ??F) Temporal 75 13 99 % -- 11/16/24 1605 112/73 36.6 ??C (97.9 ??F) Temporal 78 14 100 % -- 11/16/24 1408 122/68 -- -- -- -- -- -- 11/16/24 1200 115/71 36.8 ??C (98.2 ??F) Temporal 69 (!) 6 100 % -- 11/16/24 1002 109/61 -- -- 67 -- -- -- Physical Examination: Physical Exam HENT: Head: Normocephalic. Eyes: Pupils: Pupils are equal, round, and reactive to light. Cardiovascular: Rate and Rhythm: Normal rate and regular rhythm. Pulmonary: Effort: Pulmonary effort is normal. Abdominal: General: Abdomen is flat. Musculoskeletal: General: Normal range of motion. Cervical back: Normal range of motion. Skin: General: Skin is warm. Capillary Refill: Capillary refill takes less than 2 seconds. Neurological: General: No focal deficit present. Mental Status: She is alert. She is disoriented. Psychiatric: Mood and Affect: Mood normal. Relevant Lab Results Encounter Date: 11/15/24 ECG 12 lead Result Value Ventricular Rate 71 Atrial Rate 71 HI Interval 146 QRS DURATION 98 QT Interval 414 QTC CALCULATION(BAZETT) 449 P [place] 67 R-Glendora 40 T Wave [place] 57 Impression Normal sinus rhythm Normal ECG When compared with ECG of 12-NOV-2024 13:35, Nonspecific T wave abnormality now evident in Lateral Confirmed by Erlin Geller ([id number]) on 11/16/2024 10:56:16 AM No results found for: CKTOTAL , CKMB , CKMBINDEX , TROPONINI Limited Echo (TTE) w/wo Limited Doppler, Color Flow, Imaging Agent, Strain, 3D, Bubble Study Result Date: 10/31/2024 1 1 [facility] Heart Station [address] [place] [address] [phone] (fax) Echocardiogram-[facility] Name: JUAN KONG Study Date: 10/31/2024 11:16 AM B/P: 106 mmHg/67 mmHg HR: 70 bpm Date of : 1990 [facility]. Age: 34 year(s) Patient [...] minimal pericardial effusion. Procedure Staff Reading Group: [facility] Rug Scratcher: Raegan Cardona BS, RDCS Ordering Physician: [place] RITTER Wall Motion Scores -1 - hyperkinesia, 0 - not evaluated, 1 - normal, 2 - hypokinesia, 3 - akinesia, 4 - dyskinesia No nuclear medicine results found for the past 12 months Relevant Imaging Results ECG 12 lead Normal sinus rhythm Normal ECG When compared with ECG of 12-NOV-2024 13:35, Nonspecific T wave abnormality now evident in Lateral Confirmed by Erlin Geller ([id number]) on 11/16/2024 10:56:16 AM ASSESSMENT Pericarditis HST normal. ECG NSR. Elevated ESR 20 and CRP 13.4 NSTEMI secondary to spontaneous coronary artery dissection, type III SCAD in mid LAD ECG 11/16/2024 shows NSR HR 71, QTc 449 Cath on 11/01/2024: Coronary angiogram and IVUS [...] Hematoma, right groin pseudoaneurysm s/p repair 11/02/24 T2DM Morbid obesity s/p sleeve gastrectomy CBD dilation per CT done at OSH GI on board, EUS +/- ERCP as an outpatient IBS HTN HLD RICHAR GERD Hypothyroidism Asthma H/O median arcuate ligament syndrome s/p celiac plexus block and MALS release H/O extensive chronic adhesions and recurrent obstructions Gastroparesis s/p daily infusions and J-tube C/B infection and removal Fibromyalgia PLAN Patient would benefit from psychiatry consult Continue on toprol 50 mg daily Continue colchicine 0.3 mg every other day for minimum of 1 month Follow up CRP pending Continue Ranexa 500 mg BID Continue verapamil 40 mg q8 Continue aspirin 81 mg and Plavix 75 mg daily and crestor 40 mg Continue Toprol 25 mg daily and verapamil 40 mg every 8 hours Remainder of care as per primary team and other consulting services No objection to discharge from cardiac standpoint, patient will follow-up with Dr. Collins in the outpatient setting. This note was, at least in part, completed using a voice sand mill operator core sand system. Every effort was made to ensure accuracy. However, inadvertent computerized sand mill operator core sand errors may be present. Haroon Granados MD PGY-2 Internal Medicine Cardiology Consult Service [facility] [1] Current Facility-Administered Medications: acetaminophen (Tylenol) tablet 650 mg, 650 mg, oral, q6h PRN, Lilia Rodriguez CNP albuterol 90 mcg/actuation inhaler 2 puff, 2 puff, inhalation, q6h PRN, Sandeep Casey MD aspirin chewable tablet 81 mg, 81 mg, oral, Daily with breakfast, Lilia Rodriguez CNP, 81 mg at 11/16/24 0842 clopidogrel (Plavix) tablet 75 mg, 75 mg, oral, Daily, Lilia Rodriguez CNP, 75 mg at 11/16/24 1003 colchicine split tablet 0.3 mg, 0.3 mg, oral, Every other day, Lilia Rodriguez CNP, 0.3 mg at 11/16/24 1003 escitalopram (Lexapro) tablet 20 mg, 20 mg, oral, Daily, Lilia Rodriguez CNP, 20 mg at 11/16/24 1003 HYDROcodone-acetaminophen (Parma) 5-325 mg per tablet 2 tablet, 2 tablet, oral, q4h PRN, Sandeep Casey MD, 2 tablet at 11/17/24 0511 hydrOXYzine HCL (Atarax) tablet 50 mg, 50 mg, oral, Nightly PRN, Lilia Rodriguez CNP levothyroxine (Synthroid, Levoxyl) tablet 75 mcg, 75 mcg, oral, Daily before breakfast, Lilia Rodriguez CNP, 75 mcg at 11/17/24 0511 liothyronine (Cytomel) tablet 5 mcg, 5 mcg, oral, Daily, Lilia Rodriguez CNP, 5 mcg at 11/16/24 1001 metoprolol succinate XL (Toprol-XL) 24 hr tablet 25 mg, 25 mg, oral, Daily, Lilia Rodriguez CNP, 25 mg at 11/16/24 1002 mirtazapine (Remeron) tablet 45 mg, 45 mg, oral, Nightly, Lilia Rodriguez INSTRUCTIONAL COACH, 45 mg at 11/16/242216 pantoprazole (ProtoNix) EC tablet 40 mg, 40 mg, oral, BID AC, Lilia Rodriguez INSTRUCTIONAL COACH, 40 mg at 613 promethazine (Phenergan) tablet 25 mg, 25 mg, oral, BID PRN, Lilia Rodriguez INSTRUCTIONAL COACH, 25 mg at 11/16/24 1614 ranolazine (Ranexa) 12 hr tablet 500 mg, 500 mg, oral, BID, Lilia Rodriguez INSTRUCTIONAL COACH, 500 mg at 11/16/248 rosuvastatin (Crestor) tablet 40 mg, 40 mg, oral, Nightly, Lilia Rodriguez CNP, 40 mg at 11/16/242216 sennosides-docusate sodium (Kadie-Colace) 8.6-50 mg per tablet 1 tablet, 1 tablet, oral, BID PRN, Lilia Rodriguez CNP Insert peripheral IV, , , Once AND Saline lock IV, , , Once AND sodium chloride flush 10 mL, 10 mL, intravenous, q8h PRN, Lilia Rodriguez CNP sucralfate (Carafate) tablet 1 g, 1 g, oral, Before meals & nightly, Lilia Rodriguez CNP, 1 g at1 0511 traZODone (Desyrel) tablet 100 mg, 100 mg, oral, Nightly, Lilia Rodriguez CNP, 100 mg at 11/16/242216 verapamil (Calan) tablet 40 mg, 40 mg, oral, q8h TANIA, Lilia Rodriguez CNP, 40 mg at 11/17/24 0513 Cosigned by Tino Gilmore MD at 11/17/2024 8:00 PM EDT Associated attestation - Tino Gilmore MD - 11/17/2024 8:00 PM EDT By using the attestations below, [...] confirm the documentation by the Resident Dr Haroon Granados. Please note there may be an additional personal documentation from me. Tino Gilmore MD documented in this encounter H&P Notes * Lilia Rodriguez CNP - 11/16/2024 1:58 AM EDT Images from the original note were not included. Hospital Medicine History and Physical 11/16/2024 1:58 AM THE HOSPITALIST TEAM PREFERS TO USE [employer] FOR NON-URGENT COMMUNICATION 7AM- 7PM. IF I DO NOT RESPOND WITHIN 20 MINUTES OR URGENT MATTERS, PLEASE CALL THROUGH THE LINING STUFFER. FROM 7PM-7AM, PLEASE PAGE [phone](COVR). Chief Complaint Chest Pain History of Present Illness Juan Kong is a 34 yo female with HTN, HLD, asthma, RICHAR, hypothyroidism, GERD, IBS, fibromyalgia,T2DM, median arcuate ligament syndrome s/p celiac plexus block and MALS release, morbid obesity s/psleeve gastrectomy, extensive chronic adhesions and recurrent obstructions, and gastroparesis s/p multiple infusions and J-tube c/b infection and removal presented to the ER at [facility] complaining of chest and RUQ pain. At [facility], troponin and EKG were normal. CT chest/abd/pelvis noted CBD dilation and apperance of complex inflammatory changes. Patient has required multiple doses of opiates and antiemetics to control symptoms. Request to transfer to the [facility] where much of her advanced care has been provided with Specific concern that she may need ERCP/advanced endoscopy to further evaluation, but with no specific date for transfer so patient went to [facility] in [place] as direct admission from [facility] due to with chest pain radiating to shoulder and back with intermittent sob. She was transferred to [facility]; Pt is well known to [facility] cardiology with hx spontaneous coronary dissection, pericarditis. she was recently admitted on 11/01/24, She was evaluated by cardiology team. She underwent stress test on 11/10, the study did state Normal global left ventricular function with EF 73%. TID index score is 1.10 and No transient ischemia dilatation. Negative Lexiscan ECG stress test for ischemia. Patient continued to have chest pain during her hospital stay. Serial troponin and ECGs were rather unremarkable. Cardiology was concerned for pericarditis and she wasstarted on colchicine, she was discharged on colchicine 0.3mg every other day. CTA chest obtained on 11/11 showed no acute pulmonary embolism and no acute pulmonary process. Today; Pt is afebrile, VSS. First and second trop were both less than 6. EKG normal. CBC ok except HGB 9.1, BNP 530. CXR normal. Pt was given ASA, nitroglycerin, compazine, benedryl, fentanyl and dilaudid with no relief, on examination, patient still have pain that is moderate in intensity radiatiog to the left shoulder and back. Review of System and Physical Exam Temp: [36.6 ??C (97.9 ??F)] 36.6 ??C (97.9 ??F) Heart Rate: [71] 71 Resp: [7-16] 7 BP: (91-106)/(42-52) 91/52 Physical Exam Constitutional: Appearance: Normal appearance. She is obese. HENT: Head: Normocephalic and atraumatic. Nose: Nose normal. Cardiovascular: Rate and Rhythm: Normal rate and regular rhythm. Pulses: Normal pulses. Heart sounds: Normal heart sounds. Pulmonary: Effort: Pulmonary effort is normal. Breath sounds: Normal breath sounds. Abdominal: Palpations: Abdomen is soft. Musculoskeletal: General: Normal [...] Content: Thought content normal. Judgment: Judgment normal. Review of Systems Constitutional: Negative. HENT: Negative. Eyes: Negative. Respiratory: Positive for chest tightness. Cardiovascular: Positive for chest pain. Gastrointestinal: Positive for abdominal pain and constipation. Endocrine: Negative. Genitourinary: Negative. Musculoskeletal: Negative. Skin: Negative. Allergic/Immunologic: Negative. Neurological: Negative. Hematological: Negative. Psychiatric/Behavioral: Negative. Assessment and Plan Assessment & Plan Chest pain Pt is afebrile, VSS. First and second trop were both less than 6. EKG normal. CBC ok except HGB 9.1, BNP 530. Pain management Cardiology consult Common bile duct dilatation CT chest/abd/pelvis noted CBD dilation and apperance of complex inflammatory changes. Patient has required multiple doses of opiates and antiemetics to control symptoms. Request to transfer to the [facility] where much of her advanced care has been provided with Specific concern that she may need ERCP/advanced endoscopy to further evaluation Pain management GI consult GERD (gastroesophageal reflux disease) Resume home medications Acquired hypothyroidism Resume home medications VTE Prophylaxis: Patient is on aspirin and plavix ----- Focus of this inpatient stay will [...] hospital stay by a member of [facility]. Past Medical History Medical History[1] Past [...] of Health Financial Resource Strain: Low Risk (11/15/2024) Overall Financial Resource Strain (CARDIA) Difficulty of Paying Living Expenses: Not hard at all Food Insecurity: No Food Insecurity (11/15/2024) Hunger Vital Sign Worried About Running Out of Food in the Last Year: Never true Ran Out of Food in the Last Year: Not on file Transportation Needs: No Transportation Needs (11/15/2024) Transportation Lack of Transportation (Medical): No Lack of Transportation (Non-Medical): Not on file Physical Activity: Insufficiently Active (06/30/2023) Received from [facility] Exercise Vital Sign Days of Exercise per Week: 3 days Minutes of Exercise per Session: 10 min Stress: Stress Concern Present (06/30/2023) Received from [facility] [employer] [place] [employer] - Occupational Stress Questionnaire Feeling of Stress : Rather much Social Connections: Moderately Integrated (06/30/2023) Received from [facility] Social Connection and Isolation Panel [NHANES] Frequency of Communication with Friends and Family: Twice a week Frequency of Social Gatherings with Friends and Family: Twice a week Attends [employer] Services: More than 4 times per year Active Member of Clubs or Organizations: No Attends Club or Organization Meetings: Never Marital Status: Intimate Partner Violence: Unknown (11/15/2024) Humiliation, Afraid, Rape, and Kick questionnaire Fear of Current or Ex-Partner: No Emotionally Abused: Not on file Physically Abused: Not on file Sexually Abused: Not on file Housing Stability: Low Risk (11/15/2024) Housing Stability Vital Sign Unable to Pay [...] Prescriptions Prior to Admission[3] Labs Labs Reviewed - No data to display Imaging XR chest 1 view Narrative: CHEST 1 VIEW HISTORY: Chest pain, shortness of breath COMPARISON: 11/10/2024 FINDINGS: Stable right-sided central venous catheter. Mild right basilar atelectasis. No focal airspace disease, pulmonary edema, pleural effusions, or pneumothorax. Normal cardiomediastinal silhouette. Impression: No acute cardiopulmonary disease, with only mild right basilar atelectasis. Electronically signed: Willis Simons MD. [facility] 11/16/2024 1:58 AM [1] Past Medical History: Diagnosis Date Gastroparesis [...] morning for 120 doses. 30 tablet 3 colchicine 0.6 mg tablet Take 0.5 tablets (0.3 mg) by mouth every other day. Do not start before November 14, 2024. 8 tablet 0 escitalopram (Lexapro) 20 mg tablet Take 20 mg by mouth in the morning. fentaNYL (Duragesic) 12 mcg/hr Place 1 patch on the skin every 3rd (third) day. Give with 25 mcg patch fentaNYL (Duragesic) 25 mcg/hr Place 1 patch on the skin every 3rd (third) day. HYDROcodone-acetaminophen (Parma) 5-325 mg tablet Take 2 tablets by mouth every 4 (four) hours if needed. hydrocortisone (Cortef) 10 mg tablet Take 10 [...] mouth at bedtime. naloxone (Narcan) 0.4 mg/mL injection Infuse 1 mL (0.4 mg) into a venous catheter if needed for opioid reversal. 1 mL prn omeprazole (PriLOSEC) [address] capsule Take 40 mg by mouth before breakfast and before evening meal. Do not crush or chew. prucalopride 2 mg tablet Take 2 mg by mouth in the morning. ranolazine (Ranexa) 500 mg 12 hr tablet Take 1 tablet (500 mg) by mouth two times daily for 189 doses. Do not crush, chew, or split. 60 tablet 3 rosuvastatin (Crestor) 40 mg tablet Take 1 tablet (40 mg) by mouth at bedtime for 99 doses. 30 tablet 3 sucralfate (Carafate) 1 gram tablet Take 1 g by mouth before breakfast, before lunch, before evening meal, and at bedtime. topiramate (Topamax) 100 mg tablet Take 100 mg by mouth two times daily. [Paused] traMADol (Ultram) 50 mg tablet Take 50 mg by mouth every 6 (six) hours if needed. traZODone (Desyrel) 100 mg tablet Take 100 mg by mouth at bedtime. verapamil (Calan) 40 mg tablet Take 1 tablet (40 mg) by mouth every 8 (eight) hours for 287 doses. 90 tablet 3 Cosigned by Urbano Santos MD at 11/16/2024 4:19 AM EDT documented in this encounter Consult Notes * Malcolm Berry RN - 11/17/2024 10:32 AM EDTAssociated Order(s): IP CONSULT TO OSTOMY NURSE Images from the original note were not included. 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 Patient has been assessed by Wound Ostomy Nurse (GYPSY) and found to have: Situation/ background: Juan Kong is a 34 yo female with HTN, HLD, asthma, RICHAR, hypothyroidism, GERD, IBS, fibromyalgia,T2DM, median arcuate ligament syndrome s/p celiac plexus block and MALS release, morbid obesity s/psleeve gastrectomy, extensive chronic adhesions and recurrent obstructions, and gastroparesis s/p multiple infusions and J-tube c/b infection and removal presented to the ER at [facility] complaining of chest and RUQ pain. Focused skin assessment performed Wound History: Skin assessment complete and patient found to have a full thickness open wound to the left abdomen, resulting from a feeding tube that was removed in August. Patient reports that wound never closed. Denies pain, and no erythema or purulent drainage noted. Wound care orders have been entered and discussed with patient and primary RN. WON will continue to monitor during hospitalization, as available. *Staff nurses are responsible for performing treatments and interventions as ordered. Recommended care: Wound location: left abdomen Cleanse the wound thoroughly with normal saline. Gently pat the wound and surrounding skin dry. Cut Mesalt to fit the exact size and shape of the wound. Apply the Mesalt directly to the wound bed, ensuring full coverage of all wound surfaces. Cover with a Telfa island dressing. Change dressing daily, or sooner if it becomes soiled. Wound Care Prevention: Dressing applied for pressure redistribution, Pillows applied for pressure redistribution, and Patient/Staff were educated on the importance of frequent turns in bed to avoid prolonged pressure on high-risk area. Barriers to care: None. Problems identified: None Discharge Planning: Patient to discharge home with home health , Patient to follow up with MD., andPatient will need to be given the supplies required to care for their wound after discharge Teaching performed: Patient was educated on the process of how to care for their wound after discharge. and Further teaching is necessary. Tolerance of dressings: Patient tolerated well without being medicated for pain. Number of staff and time required for dressin, 10 minutes Photos: 11/16/2024 left abdomen 11/16/2024 left abdomen Pertinent Labs: Albumin Date Value Ref Range Status 11/17/2024 3.2 (L) 3.5 - 5.7 g/dL Final Wound Assessment: Open Wound (Any Pressure Injuries included) 11/02/24 Groin Anterior;Proximal;Right;Upper (Active) Open Wound (Any Pressure Injuries included) 11/16/24 Abdomen Left;Lower (Active) Wound Image 11/17/24919 Site Assessment Red;Granulation 11/17/24919 Kadie-Wound Assessment Blanchable erythema;Scarred 11/17/24919 Measurements/Wound Bed Assessment Yes 11/17/24919 Wound Length (cm) 0.5 cm 11/17/24919 Wound Width (cm) 0.6 cm 11/17/24919 Wound Surface Area (cm^2) 0.24 cm^2 11/17/24919 Wound Depth (cm) 0.2 cm 11/17/24919 Wound Volume (cm^3) 0.031 cm^3 11/17/24919 Closure None 11/17/24919 Drainage Description Serous 11/17/24919 Drainage Amount Scant 11/17/24919 Treatments Cleansed 11/17/24919 Dressing Impregnated gauze;Island dressing 11/17/24919 Dressing Changed New 11/17/24919 Dressing Status Clean;Dry;Intact 11/17/24919 State of Healing Early/partial granulation 11/17/24919 Margins Attached edges;Well-defined edges 11/17/24919 Non-staged Wound Description Full thickness 11/17/24919 JUANIS Rahman, RN 11/17/2024 10:33 AM * Kimberly Machado MD - 11/16/2024 8:01 AM EDTAssociated Order(s): IP CONSULT TO GASTROENTEROLOGY Initial Gastroenterology/Hepatology Consultation Note IDENTIFYING DATA PATIENT: Juan Kong ADMIT DATE: 11/15/2024 TIME OF EVALUATION: 11/16/2024 8:01 AM Reason for Consult: CBD dilation and apperance of complex inflammatory changes Admitting Physician: Sandeep Casey MD HISTORY OF PRESENT ILLNESS Juan Kong is a 34 yo female with HTN, HLD, asthma, RICHAR, hypothyroidism, GERD, IBS, fibromyalgia,T2DM, median arcuate ligament syndrome s/p celiac plexus block and MALS release, morbid obesity s/psleeve gastrectomy, extensive chronic adhesions and recurrent obstructions, and gastroparesis s/p multiple infusions and J-tube c/b infection and removal presented to the ER at [facility] complaining of chest and RUQ pain. At [facility], troponin and EKG were normal. CT chest/abd/pelvis noted CBD dilation and apperance of complex inflammatory changes. Patient has required multiple doses of opiates and antiemetics to control symptoms. Request to transfer to the [facility] system where much of her advanced care has been provided with Specific concern that she may need ERCP/advanced endoscopy to further evaluation, but with no specific date for transfer so patient went to [facility] in [place] as direct admission from [facility] due to with chest pain radiating to shoulder and back with intermittent sob. She was transferred to [facility]; Pt is well known to [facility] cardiology with hx spontaneous coronary dissection, pericarditis. she was recently admitted on 11/01/24, She was evaluated by cardiology team. She underwent stress test on 11/10, the study did state Normal global left ventricular function with EF 73%. TID index score is 1.10 and No transient ischemia dilatation. Negative Lexiscan ECG stress test for ischemia. Patient continued to have chest pain during her hospital stay. Serial troponin and ECGs were rather unremarkable. Cardiology was concerned for pericarditis and she wasstarted on colchicine, she was discharged on colchicine 0.3mg every other day. CTA chest obtained on 11/11 showed no acute pulmonary embolism and no acute pulmonary process. Today; Pt is afebrile, VSS. First and second trop were both less than 6. EKG normal. CBC ok except HGB 9.1, BNP 530. CXR normal. Pt was given ASA, nitroglycerin, compazine, benedryl, fentanyl and dilaudid with no relief, on examination, patient still have pain that is moderate in intensity radiatiog to the left shoulder and back. GI HISTORY SUMMARY TABLE Last EGD September 29, 2024 done for dysphagia eval - No endoscopic esophageal abnormality to explain patient's dysphagia. Esophagus dilated. Dilated with an 18-19-20 mm x 8 cm CRE balloon (to a maximum balloon size of 20 mm). - Isabel-en-Y gastrojejunostomy with gastrojejunal anastomosis characterized by healthy appearing mucosa. - No specimens collected. Last colonoscopy Primary GI physician PAST MEDICAL, SURGICAL, FAMILY, and SOCIAL HISTORY Past Medical History: Medical History[1] Past Surgical History: Surgical History[2] Family History: Family History[3] Social History: Social History[4] Allergies: Allergies[5] MEDICATIONS Home Medications: Prior to Admission medications Medication Sig Start Date End Date Taking? Authorizing Provider acetaminophen (Tylenol) 325 mg tablet Take 650 mg by mouth every 4 (four) hours if needed for mild pain (1-3 pain score). Historical ProviderMD ALBUTEROL INHL Inhale 90 mcg every 6 (six) hours if needed (SOB or wheezing). Historical ProviderMD aspirin 81 mg chewable tablet Chew 1 tablet (81 mg) with breakfast for 120 doses. 11/03/24 03/03/25 Ky Ritter MD clopidogrel (Plavix) 75 mg tablet Take 1 tablet (75 mg) by mouth in the morning for 120 doses. 11/03/24 03/03/25 Ky Ritter MD colchicine 0.6 mg tablet Take 0.5 tablets (0.3 mg) by mouth every other day. Do not start before November 14, 2024. 11/14/24 12/14/24 Marky Tavares MD escitalopram (Lexapro) 20 mg tablet Take 20 mg by mouth in the morning. Historical Provider, fentaNYL (Duragesic) 12 mcg/hr Place 1 patch on the skin every 3rd (third) day. Give with 25 mcg patch Historical ProviderMD fentaNYL (Duragesic) 25 mcg/hr Place 1 patch on the skin every 3rd (third) day. Historical Provider, HYDROcodone-acetaminophen (Parma) 5-325 mg tablet Take 2 tablets by mouth every 4 (four) hours if needed. Historical Provider, hydrocortisone (Cortef) 10 mg tablet Take 10 mg by mouth in the morning. Historical Provider, hydrOXYzine HCL (Atarax) 25 mg tablet Take 50 mg by mouth if needed at bedtime. Historical Provider, levothyroxine (Synthroid, Levoxyl) 75 mcg tablet Take 75 mcg by mouth before breakfast. Historical Provider, liothyronine (Cytomel) 5 mcg tablet Take 5 mcg by mouth in the morning. Historical Provider, metFORMIN, OSM, (Fortamet) 500 mg 24 hr tablet Take 500 mg by mouth with breakfast and with eveningmeal. Do not crush, chew, or split. Historical ProviderMD methocarbamol (Robaxin) 500 mg tablet Take 750 mg by mouth four times daily. Historical Provider, metoclopramide (Reglan) 10 mg tablet Take 1 tablet (10 mg) by mouth if needed in the morning and atbedtime (nausea and vomiting). 11/02/24 12/02/24 Ky Ritter MD metoprolol succinate XL (Toprol-XL) 25 mg 24 hr tablet Take 1 tablet (25 mg) by mouth in the morning for 92 doses. Do not crush or chew. Do not start before November 08, 2024. 11/08/24 02/08/25 Mauricio Garcia MD mirtazapine (Remeron) 30 mg tablet Take 45 mg by mouth at bedtime. Historical ProviderMD naloxone (Narcan) 0.4 mg/mL injection Infuse 1 mL (0.4 mg) into a venous catheter if needed for opioid reversal. 11/13/24 12/13/24 Marky Tavares MD omeprazole (PriLOSEC) [address] capsule Take 40 mg by mouth before breakfast and before evening meal. Do not crush or chew. Historical ProviderMD prucalopride 2 mg tablet Take 2 mg by mouth in the morning. Historical ProviderMD ranolazine (Ranexa) 500 mg 12 hr tablet Take 1 tablet (500 mg) by mouth two times daily for 189 doses. Do not crush, chew, or split. 11/13/24 02/16/25 Marky Tavares MD rosuvastatin (Crestor) 40 mg tablet Take 1 tablet (40 mg) by mouth at bedtime for 99 doses. 11/08/2511 Mauricio Garcia MD sucralfate (Carafate) 1 gram tablet Take 1 g by mouth before breakfast, before lunch, before evening meal, and at bedtime. Historical ProviderMD topiramate (Topamax) 100 mg tablet Take 100 mg by mouth two times daily. Historical ProviderMD Paused traMADol (Ultram) 50 mg tablet Take 50 mg by mouth every 6 (six) hours if needed. Wait to take this until your doctor or other care provider tells you to start again. Historical ProviderMD traZODone (Desyrel) 100 mg tablet Take 100 mg by mouth at bedtime. Historical ProviderMD verapamil (Calan) 40 mg tablet Take 1 tablet (40 mg) by mouth every 8 (eight) hours for 287 doses. 11/07/24 02/11/25 Mauricio Garcia MD colchicine 0.6 mg tablet Take 0.5 tablets (0.3 mg) by mouth every other day for 49 doses. 11/14/24 11/13/24 Marky Tavares MD ergocalciferol (Vitamin D-2) 1.25 MG (32502 Units) capsule Take 50,000 Units by mouth 1 (one) time per week. 11/13/24 Historical Provider, fentaNYL (Duragesic) 12 mcg/hr Place 1 patch on the skin every 3rd (third) day. Takes 12 mcg and 25mcg together every 3 days 11/13/24 Historical Provider, HYDROcodone-acetaminophen (Parma) 5-325 mg tablet Take 2 tablets by mouth every 4 (four) hours if needed for moderate-severe pain (4-10 pain score). 11/13/24 Historical Provider, Current Medications: aspirin, 81 mg, oral, Daily with breakfast clopidogrel, 75 mg, oral, Daily colchicine, 0.3 mg, oral, Every other day escitalopram, 20 mg, oral, Daily levothyroxine, 75 mcg, oral, Daily before breakfast liothyronine, 5 mcg, oral, Daily metoprolol succinate XL, 25 mg, oral, Daily mirtazapine, 45 mg, oral, Nightly pantoprazole, 40 mg, oral, BID AC ranolazine, 500 mg, oral, BID rosuvastatin, 40 mg, oral, Nightly sucralfate, 1 g, oral, Before meals & nightly traZODone, 100 mg, oral, Nightly verapamil, 40 mg, oral, q8h TANIA PRNs: acetaminophen, 650 mg, q6h PRN albuterol, 2 puff, q6h PRN diphenhydrAMINE, 25 mg, q6h PRN Or diphenhydrAMINE, 25 mg, q6h PRN HYDROcodone-acetaminophen, 2 tablet, q4h PRN HYDROmorphone, 0.5 mg, q4h PRN hydrOXYzine HCL, 50 mg, Nightly PRN promethazine, 25 mg, BID PRN sennosides-docusate sodium, 1 tablet, BID PRN sodium chloride, 10 mL, q8h PRN REVIEW OF SYSTEMS See HPI, otherwise ROS negative as below CONSTITUTIONAL: negative HEENT: negative RESPIRATORY: negative CARDIOVASCULAR: negative GASTROINTESTINAL: as in HPI GENITOURINARY: negative OBJECTIVE DATA Vitals: BP 97/54 (BP Location: Right arm, Patient Position: Lying) Pulse 70 Temp 36.6 ??C (97.9 ??F) (Temporal) Resp (!) 9 Ht 1.676 m (5' 6 ) Wt 86.3 kg (190 lb 3.2 oz) SpO2 95% BMI 30.70 kg/m?? GEN: Alert and oriented x3, NAD HEENT: Atraumatic, normocephalic CV: Regular rate and rhythm PULM: Breathing comfortably ABD: Abdominal tenderness NEURO: Moves all 4 extremities spontaneously LABS AND IMAGING CBC: Results from last 7 days Lab Units 11/16/24 0536 11/13/24 0711/12/24 0630 WBC AUTO 10*3/uL 3.15* 3.34* 3.43* RBC AUTO 10*6/uL 2.63* 2.88* 2.87* HEMOGLOBIN g/dL 7.8* 8.6* 8.6* HEMATOCRIT % 23.8* 26.2* 26.0* MCV fL 90.5 91.0 90.6 RDW % 15.3* 14.6 14.6 PLATELETS AUTO 10*3/uL 277 257 247 PT/INR BMP: Results from last 7 days Lab Units 11/16/24 0536 11/13/24 0703 11/12/24 0630 SODIUM mmol/L 141 140 140 POTASSIUM mmol/L 3.4* 3.8 3.9 CHLORIDE mmol/L 111* 108* 108* BUN mg/dL 14 9 10 CREATININE mg/dL 0.77 0.72 0.67 EGFR mL/min/1.73m*2 103.1 111.8 116.8 GLUCOSE mg/dL 86 81 88 LFTs: B12/Folate/Iron studies: No results found for: [id number] , FOLATE , IRON , TIBC , UIBC , IRONSAT , FERRITIN Viral Hepatitis No results found for: HEPAIGM , HAV , HEPBSAG , HEPBSAB , HEPBEAB , HEPBIGM , HEPBCAB , HEPBCOREAB , HBVNAT , HCVSCR , HEPCAB , HCVNAT , HCVPCR , HCVTMA Liver workup No results found for: MISAEL , SMOOTHMUSCAB , CERULOPLSM , [id number] , TTGA , IGA , TSH , FREET4 , AFP Pancreatitis Lab Results Component Value Date CALCIUM 7.9 (L) 11/16/2024 IMAGING: No CT results found for the past [address] chest/abd/pelvis noted CBD dilation and apperance of complex inflammatory changes. ASSESSMENT AND PLAN Juan Kong is a 34 y.o. [place] [facility] [place]. CT done at another facility showing CBD dilation and appearance of complex inflammatory changes. No report on file Assessment Chest pain CBD dilation as per H&P based on the CT done at another facility however cannot find CT report GERD Status post cholecystectomy over a year ago Hypothyroidism Dysphagia status post EGD with dilation up to 20 at [facility] in September 2024. Plan: Abdominal Monitoring: Perform serial abdominal examinations to monitor for evolving signs of peritonitis or worsening intra-abdominal pathology. PPI 40 p.o. daily for GERD symptoms Consider surgical eval if the patient shows signs of acute abdomen. Laboratory Evaluation: Order and trend liver function tests (AST, ALT, ALP) and total/direct bilirubin daily. Imaging: Obtain MRCP for detailed evaluation of the biliary tree and to further assess for obstruction, strictures, or inflammatory changes. Pain Control: Pain management to be directed by the primary team. No contraindication to advance diet from GI standpoint GI Involvement: GI to follow for ongoing evaluation and management. This consult will be discussed with attending physician. If you have any questions please feel freeto contact the GI Service. Thank you for allowing us to participate in the care of Juan Kong. Gastroenterology 6 am to 4 pm weekdays in house: [phone] 4 pm to 6 am or weekends: Please contact the dust collector operator to page the fellow component overhaul operator Kimberly Machado MD. Gastroenterology and Hepatology Fellow [facility] [1] Past Medical History: Diagnosis Date Gastroparesis [2] Past Surgical History: Procedure Laterality Date ABDOMINAL SURGERY [3] Family History Problem Relation Name Age of Onset No Known Problems Mother No Known Problems Father [4] Social History Tobacco Use Smoking status: Never Smokeless tobacco: Never Substance Use Topics Alcohol use: Not Currently Drug use: Never [5] Allergies Allergen Reactions Codeine Nausea And Vomiting Nsaids (Non-Steroidal Anti-Inflammatory Drug) GI intolerance Adhesive Rash Cosigned by Karmen Sanchez MD at 11/16/2024 10:29 AM EDT Associated attestation - Karmen Sanchez MD - 11/16/2024 10:29 AM EDT I saw and evaluated the patient. I reviewed the resident's/fellow's note and agree with the findings and plan documents in the resident's/fellow's note Generalized abdominal pain multifactoiral, Dilated CBD ?? Post cholecystetomy. Normal lft's Constipation per CT scan History of dysphagia S/P receit CRE balloon dilation up to 20 mm PLAN Bowel regimen MRCP Trend LFT's * Lisa Pena DO - 11/16/2024 7:53 AM EDTAssociated Order(s): IP CONSULT TO CARDIOLOGY Images from the original note were not included. Cardiology Consult Note Reason for Consult: chest pain HPI: Juan Kong is a [...] as a direct admission from [facility] due to chest pain. Patient was hospitalized on 10/30/2024 and 11/09/2024 for similar symptoms, and required coronary angiography [...] as urinary retention that required Costello placement. ESR and CRP were elevated, so patient was started on colchicine 0.3 mg every other day due to interaction with verapamiland Ranexa. Patient states she had similar chest pain sharp shooting radiating to the left shoulder, back, and now to the right chest region. Feels better now that she was given pain medications. Patient was then taken to [facility] near [place], and was transferred from there to [facility] for appropriate workup of chest pain and continuation of care. TTE on 10/31/2024 shows EF 53% with biplane calculations, and 50 to 55% on estimation with regional WMA basal inferolateral, mid anterior, mid anteroseptal, mid inferoseptal, mid inferolateral and apical lateral left ventricular wall segments. Lexiscan 11/10/2024 negative with TID of 1.10. Cardiology ROS: Review of Systems Constitutional: Negative for activity change, appetite change, chills, diaphoresis and fever. HENT: Negative for congestion, hearing loss, sinus pressure and sore throat. Eyes: Negative for photophobia and pain. Respiratory: Negative for apnea, cough, choking, shortness of breath and wheezing. Cardiovascular: Negative for chest pain, palpitations and leg swelling. Gastrointestinal: Negative for abdominal distention, abdominal pain, constipation, diarrhea, nauseaand vomiting. Genitourinary: Negative for difficulty urinating and dysuria. Musculoskeletal: Negative for arthralgias, gait problem and myalgias. Neurological: Negative for dizziness, tremors, weakness and headaches. Psychiatric/Behavioral: Negative for agitation and confusion. The patient is not nervous/anxious. Past Medical History She has a past medical history of Gastroparesis. Surgical History She has a past surgical history that includes Abdominal surgery. Social History She reports that she has never smoked. She has never used smokeless tobacco. She reports that she does not currently use alcohol. She reports that she does not use drugs. Family History Family History[1] Allergies Codeine, Nsaids (non-steroidal anti-inflammatory drug), and Adhesive Medications Current Outpatient Medications Medication Instructions acetaminophen (TYLENOL) 650 mg, oral, Every 4 hours PRN ALBUTEROL INHL 90 mcg, inhalation, Every 6 hours PRN aspirin 81 mg, oral, Daily with breakfast clopidogrel (PLAVIX) 75 mg, oral, Daily colchicine 0.3 mg, oral, Every other day escitalopram (LEXAPRO) 20 mg, oral, Daily fentaNYL (Duragesic) 12 mcg/hr 1 patch, transdermal, Every 72 hours, Give with 25 mcg patch fentaNYL (Duragesic) 25 mcg/hr 1 patch, transdermal, Every 72 hours HYDROcodone-acetaminophen (Parma) 5-325 mg tablet 2 tablets, oral, Every [...] chew. mirtazapine (REMERON) 45 mg, oral, Nightly naloxone (NARCAN) 0.4 mg, intravenous, As needed omeprazole (PRILOSEC) 40 mg, oral, 2 times daily before meals, Do not crush or chew. prucalopride 2 mg, oral, Daily ranolazine (RANEXA) 500 mg, oral, 2 times daily, Do not crush, chew, or split. rosuvastatin (CRESTOR) 40 mg, oral, Nightly sucralfate (CARAFATE) 1 g, oral, 4 times daily before meals and nightly topiramate (TOPAMAX) 100 mg, oral, 2 times daily [Paused] traMADol (ULTRAM) 50 mg, oral, Every 6 hours PRN traZODone (DESYREL) 100 mg, oral, Nightly verapamil (CALAN) 40 mg, oral, Every 8 hours scheduled Prescriptions Prior to Admission[2] Last Recorded Vitals Patient Vitals for the past 24 hrs: BP Temp Temp src Pulse Resp SpO2 Height Weight 11/16/24 0400 97/54 -- -- 70 (!) 9 95 % -- -- 11/16/24 0345 -- -- -- -- -- -- -- 86.3 kg (190 lb 3.2 oz) 11/16/24 0001 91/52 -- -- 71 (!) 7 96 % -- -- 11/15/242035 (!) 106/42 36.6 ??C (97.9 ??F) Temporal 71 16 100 % 1.676 m (5' 6 ) 85.3 kg (188 lb) 11/15/242019 -- -- -- -- -- -- -- 85.3 kg (188 lb) 11/15/242006 (!) 106/42 36.6 ??C (97.9 ??F) Temporal 71 12 100 % -- -- Physical Examination: Physical Exam [...] Value Ventricular Rate 73 Atrial Rate 73 HI Interval 156 QRS DURATION 88 QT Interval 414 QTC CALCULATION(BAZETT) 456 P Gl[place] 65 R-Glendora 46 T Wave Gl[place] 61 Impression Normal sinus rhythm Normal ECG When compared with ECG of 11-NOV-2024 18:10, no significant change was noted Confirmed by Griffin Diaz ([id number]) on 11/12/2024 7:44:39 PM No results found for: CKTOTAL , CKMB , CKMBINDEX , TROPONINI Limited Echo (TTE) w/wo Limited Doppler, Color Flow, Imaging Agent, Strain, 3D, Bubble Study Result Date: 10/31/2024 1 1 [facility] Heart Station [address] [place] [address] [phone] (fax) Echocardiogram-[facility] Name: JUAN KONG Study Date: 10/31/2024 11:16 AM B/P: 106 mmHg/67 mmHg HR: 70 bpm Date of : 1990 [facility] Age: 34 year(s) Patient [...] minimal pericardial effusion. Procedure Staff Reading Group: [facility] Rug Scratcher: Raegan Cardona BS, RDCS Ordering Physician: [place] RITTER Wall Motion Scores -1 - hyperkinesia, 0 - not evaluated, 1 - normal, 2 - hypokinesia, 3 - akinesia, 4 - dyskinesia No nuclear medicine results found for the past 12 months Relevant Imaging Results XR chest 1 view Narrative: CHEST 1 VIEW HISTORY: Chest pain, shortness of breath COMPARISON: 11/10/2024 FINDINGS: Stable right-sided central venous catheter. Mild right basilar atelectasis. No focal airspace disease, pulmonary edema, pleural effusions, or pneumothorax. Normal cardiomediastinal silhouette. Impression: No acute cardiopulmonary disease, with only mild right basilar atelectasis. Electronically signed: Willis Simons MD. ASSESSMENT Pericarditis HST normal. ECG NSR. 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 Every effort was made to ensure accuracy. However, inadvertent computerized sand mill operator core sand errors may be present. Lisa Pena DO Internal Medicine Resident, PGY-2 [facility] 7:54 AM 11/16/24 [1] Family History Problem Relation Name Age of Onset No Known Problems Mother No Known Problems Father [2] Medications Prior to Admission Medication Sig [...] morning for 120 doses. 30 tablet 3 colchicine 0.6 mg tablet Take 0.5 tablets (0.3 mg) by mouth every other day. Do not start before November 14, 2024. 8 tablet 0 escitalopram (Lexapro) 20 mg tablet Take 20 mg by mouth in the morning. fentaNYL (Duragesic) 12 mcg/hr Place 1 patch on the skin every 3rd (third) day. Give with 25 mcg patch fentaNYL (Duragesic) 25 mcg/hr Place 1 patch on the skin every 3rd (third) day. HYDROcodone-acetaminophen (Parma) 5-325 mg tablet Take 2 tablets by mouth every 4 (four) hours if needed. hydrocortisone (Cortef) 10 mg tablet Take 10 [...] mouth at bedtime. naloxone (Narcan) 0.4 mg/mL injection Infuse 1 mL (0.4 mg) into a venous catheter if needed for opioid reversal. 1 mL prn omeprazole (PriLOSEC) [address] capsule Take 40 mg by mouth before breakfast and before evening meal. Do not crush or chew. prucalopride 2 mg tablet Take 2 mg by mouth in the morning. ranolazine (Ranexa) 500 mg 12 hr tablet Take 1 tablet (500 mg) by mouth two times daily for 189 doses. Do not crush, chew, or split. 60 tablet 3 rosuvastatin (Crestor) 40 mg tablet Take 1 tablet (40 mg) by mouth at bedtime for 99 doses. 30 tablet 3 sucralfate (Carafate) 1 gram tablet Take 1 g by mouth before breakfast, before lunch, before evening meal, and at bedtime. topiramate (Topamax) 100 mg tablet Take 100 mg by mouth two times daily. [Paused] traMADol (Ultram) 50 mg tablet Take 50 mg by mouth every 6 (six) hours if needed. traZODone (Desyrel) 100 mg tablet Take 100 mg by mouth at bedtime. verapamil (Calan) 40 mg tablet Take 1 tablet (40 mg) by mouth every 8 (eight) hours for 287 doses. 90 tablet 3 Cosigned by Jonelle Harrison MD at 11/16/2024 3:28 PM EDT Associated attestation - Jonelle Harrison MD - 11/16/2024 3:28 PM EDT By using the attestations below, the signing clinician agrees that I have read and verify that thedocumentation has been personally reviewed by me and ensure that the documentation accurately reflects the encounter. GC: I personally saw this patient on the day of the encounter with Dr. Manzano, Dr. Pena and Dr. Batista, performed the paula portion(s) of the service and participated in the management and confirm the resident's documentation. Please note there may be an additional personal documentation from me. documented in this encounter Nursing Notes * Justine Kumar RN - 11/16/2024 9:43 PM EDT At 2018, the patient reported pain and nausea rated at 8/10. The patient mentioned, I spoke to cardiology earlier today, and they told me I could have IV Benadryl and IV pain medications. The check writer salesperson contacted cardiology and the previous shift nurse to verify this information and was informed thatthe patient???s statement was inaccurate. The check writer salesperson clarified that the patient is prescribed oral Parma for pain and oral Phenergan for nausea. The patient declined both medications and requested that the hospitalist be contacted regarding the possibility of IV medications. The hospitalist was informed of the situation, and no new orders were issued. The check writer salesperson will continue to monitor the patient and manage pain according to the current orders. * Desmond Bright RN - 11/16/2024 1:32 PM EDT At 1320, pt completed MRI questionnaire with RN, and then inquired about status of pain meds ordered by physician. RN offered Parma, pt declined and said I'll wait * Yue Munoz RN - 11/16/2024 1:02 PM EDT 1230 pt complains of pain at 8 on 0-10 scale, explained to pt that pain meds ordered for 4-7 but dilaudid that had been ordered for pain 8-10 was discontinued and that we could reach out to doctor, at 12:50 pt again complained of pain at 8, again explained to pt that pain meds for 8-10 were discontinued and we have reached out to doctor, offered to give norco that is ordered for 4-7 pain or that pt could wait for doctor to respond, pt stated that she would wait documented in this encounter Miscellaneous Notes * Significant Event - May Emery RN - 11/16/2024 5:04 PM EDT 11/16/24 1700 Admission Assessment Questions Verify insurance with patient Yes Do you understand medical disease or what brought you into the hospital? Yes Who is your current PCP? Thomas Alas MD Can I schedule a follow up appointment for you at the time of discharge? Yes (between 8:30am - 3pm) Does patient qualify for Complex Care Management Enrollment? Yes Do you understand why you are taking your current medications? Yes Are you taking your medications as prescribed? Yes Did patient provide teach back? No Pharmacy Bedside Delivery Status Interested Does the patient have a foster care case manager assigned to them through their insurance? No Living Arrangement (Current/Prior to Hospitalization) Private residence Does the patient have history of HHC or SNF? Yes (Hx of [id number], active) Assistive Device Other (Comment) (has TPN set up at home through [facility] [place]) Patient's goal for discharge home with [id number] Was patient reminded that goal for discharge is 11am? Yes Does the patient have transportation at discharge? Yes Type of Residence Private residence Is PT/OT appropriate? No Is PT/OT ordered? No Is SW consult appropriate? No Is SW consult ordered? No Do you understand the benefits of MyChart? Yes Were you able to send link and activate MyChart? MyChart already active * Care Plan - Desmond Bright RN - 11/16/2024 1:34 PM EDT The patient is Moderately Stable - Low risk of patient condition declining or worsening The patient's goals for the shift include comfort and rest The clinical goals for the shift include stable VS Problem: Safety - Adult Goal: Free from fall injury Outcome: Progressing Problem: Neurosensory - Adult Goal: Absence of seizures Outcome: Progressing Problem: Skin/Tissue Integrity - Adult Goal: Skin integrity remains intact Outcome: Progressing Goal: Oral mucous membranes remain intact Outcome: Progressing * Treatment Plan - Urbano Santos MD - 11/16/2024 4:19 AM EDT Chart reviewed SS plan reviewed and agree * Assessment & Plan Note - Lilia Rodriguez CNP - 11/16/2024 2:13 AM EDTAssociated Problem(s): Chest pain Pt is afebrile, VSS. First and second trop were both less than 6. EKG normal. CBC ok except HGB 9.1, BNP 530. Pain management Cardiology consult * Assessment & Plan Note - Lilia Rodriguez CNP - 11/16/2024 2:13 AM EDTAssociated Problem(s): GERD (gastroesophageal reflux disease) Resume home medications * Assessment & Plan Note - Lilia Rodriguez CNP - 11/16/2024 2:13 AM EDTAssociated Problem(s): Acquired hypothyroidism Resume home medications * Assessment & Plan Note - Lilia Rodriguez CNP - 11/16/2024 2:13 AM EDTAssociated Problem(s): Common bile duct dilatation CT chest/abd/pelvis noted CBD dilation and apperance of complex inflammatory changes. Patient has required multiple doses of opiates and antiemetics to control symptoms. Request to transfer to the [facility] where much of her advanced care has been provided with Specific concern that she may need ERCP/advanced endoscopy to further evaluation Pain management GI consult documented in this encounter Plan of Treatment Upcoming Encounters Date Type Department Care Team (Late st Contact Info) Description 11/28/2024 11:00 AM EDT Follow-Up [facility] Cardiology [address] [id number] Wali Collins MD [address] [place] [address] 12/04/2024 10:00 AM EDT Office Visit [facility] Heart at [facility] [address] [place] [address] Katie Altamirano MD [address] [facility] [address] documented as of this encounter Procedures Procedure Name Priority Date/Time Associated Diagnosis Comments CBC Pending Discharge 11/17/2024 5:17 AM EDT MAGNESIUM Pending Discharge 11/17/2024 5:17 AM EDT HEPATIC FUNCTION PANEL Add-On 11/17/2024 5:17 AM EDT BASIC METABOLIC PANEL Pending Discharge 11/17/2024 5:17 AM EDT MR ABDOMEN WO CONTRAST MRCP STAT 11/16/2024 8:32 PM EDT ECG 12-LEAD Routine 11/16/2024 9:55 AM EDT HIGH SENSITIVITY TROPONIN I Add-On 11/16/2024 5:36 AM EDT CBC Routine 11/16/2024 5:36 AM EDT HEPATIC FUNCTION PANEL STAT Add-on 11/16/2024 5:36 AM EDT BASIC METABOLIC PANEL Routine 11/16/2024 5:36 AM EDT documented in this encounter Results * (ABNORMAL) Hepatic function panel (11/17/2024 5:17 AM EDT) Total Bilirubin 0.3 0.3 - 1.0 mg/dL 11/17/2024 8:50 AM EDT [facility]) Bilirubin, Direct 0.0 0 - 0.2 mg/dL 11/17/2024 8:50 AM EDT [facility]) Alkaline Phosphatase 46 34 - 104 U/L 11/17/2024 8:50 AM EDT [facility]) AST 20 13 - 39 U/L 11/17/2024 8:50 AM EDT [facility]) ALT (SGPT) 11 7 - 52 U/L 11/17/2024 8:50 AM EDT [facility] Total Protein 5.2(L) 6.0 - 8.3 g/dL 11/17/2024 8:50 AM EDT [facility]) Albumin 3.2(L) 3.5 - 5.7 g/dL 11/17/2024 8:50 AM EDT [facility]) Blood Venous blood specimen / Unknown Existing Catheter / Unknown 11/17/2024 5:17 AM EDT 11/17/2024 5:24 AM EDT us Arabella Patel [facility] BLOOD ORDERABLES Final Result [facility] ([facility]) [address] [place] [address] * Magnesium (11/17/2024 5:17 AM EDT) Magnesium 1.9 1.9 - 2.7 mg/dL 11/17/2024 7:00 AM EDT [facility]) Blood Venous blood specimen / Unknown Existing Catheter / Unknown 11/17/2024 5:17 AM EDT 11/17/2024 5:24 AM EDT us Sandeep Casey MD LAB BLOOD ORDERABLES Final Resul t [facility]) [address] [place] [address] * (ABNORMAL) CBC (11/17/2024 5:17 AM EDT) Auto WBC 2.92(L) 4.00 - 10.60 10*3/uL 11/17/2024 5:40 AM EDT [facility]) RBC 2.88(L) 3.80 - 5.00 10*6/uL 11/17/2024 5:40 AM EDT [facility]) Hemoglobin 8.5(L) 12.0 - 15.0 g/dL 11/17/2024 5:40 AM EDT [facility]) Hematocrit 25.9(L) 36.0 - 45.0 % 11/17/2024 5:40 AM EDT [facility]) MCV 89.9 82.0 - 98.0 fL 11/17/2024 5:40 AM EDT [facility]) MCH 29.5 27.0 - 33.0 pg 11/17/2024 5:40 AM EDT [facility]) MCHC 32.8 32.0 - 35.0 g/dL 11/17/2024 5:40 AM EDT [facility]) RDW 14.6 11.5 - 15.0 % 11/17/2024 5:40 AM EDT [facility]) Platelets 292 150 - 400 10*3/uL 11/17/2024 5:40 AM EDT [facility]) Blood Venous blood specimen / Unknown Existing Catheter / Unknown 11/17/2024 5:17 AM EDT 11/17/2024 5:25 AM EDT us Sandeep Casey MD LAB BLOOD ORDERABLES Final Resul t [facility] ([facility]) [address] [place] [address] * (ABNORMAL) Basic metabolic panel (11/17/2024 5:17 AM EDT) Sodium 142 136 - 145 mmol/L 11/17/2024 7:00 AM [facility]) Potassium 3.6 3.5 - 5.1 mmol/L 11/17/2024 7:00 AM [facility]) Chloride 111(H) 98 - 107 mmol/L 11/17/2024 7:00 AM [facility]) CO2 25 21 - 31 mmol/L 11/17/2024 7:00 AM [facility]) BUN 10 7 - 25 mg/dL 11/17/2024 7:00 AM [facility]) Creatinine 0.72 0.60 - 1.20 mg/dL 11/17/2024 7:00 AM [facility]) Glucose 81 70 - 100 mg/dL 11/17/2024 7:00 AM [facility]) Calcium 8.0(L) 8.6 - 10.3 mg/dL 11/17/2024 7:00 AM [facility]) Anion Gap 10 7 - 20 mmol/L 11/17/2024 7:00 AM [facility]) eGFR 111.8 >60.0 mL/min/1. 73m*2 11/17/2024 7:00 AM [facility]) Comment:[facility] s estimated glomerular filtration rate [...] any one group of individuals. BUN/Creatinine Ratio 13.9 04/2024 7:00 AM [facility] Blood Venous blood specimen / Unknown Existing Catheter / Unknown 11/17/2024 5:17 AM EDT 11/17/2024 5:24 AM EDT us Sandeep Casey MD LAB BLOOD ORDERABLES Final Resul t [facility] ([facility]) [address] [place] [address] * MR abdomen wo contrast MRCP (11/16/2024 8:32 PM EDT) Anatomical Region Laterality Modality Abdomen Magnetic Resonan ce 11/17/2024 7:41 AM EDT Impressions 11/17/2024 7:55 AM EDT * Suggestion of T2 hypointense filling defects within the common bile duct on the 3-D MRCP images, however it is unclear on this study whether this represents true filling defects such as stones or is simply artifactual in nature. The common bile duct cannot be visualized well enough to accurately measure size, though is not likely significantly dilated. If there remains high clinical concern for choledocholithiasis further assessment with ERCP would be suggested. * Mild dilatation of the intrahepatic bile ducts. Numerous benign hepatic cysts as well. * Status post cholecystectomy. * Mild splenomegaly. * Mild dilatation of the visualized portions of ascending colon and transverse colon. Electronically signed: Willis Simons MD. Narrative 11/17/2024 7:55 AM EDT MRI ABDOMEN AND MRCP WITHOUT CONTRAST HISTORY: Dilated CBD, right upper quadrant pain COMPARISON:CT abdomen/pelvis 11/04/2024 TECHNIQUE: Routine multiplanar multisequence MRI abdomen and MRCP was performed without contrast. 3D reformatted volume rendered and rotation maximum intensity projection images obtained and reviewed for evaluation of the pancreatic and biliary ductal system at the MR console under concurrent physician supervision. FINDINGS: Status post cholecystectomy. Mild dilatation of the intrahepatic bile ducts. The common bile duct is very difficult to well visualize on the coronal or axial T2-weighted images. On the 3-D MRCP images there is a suggestion of T2 hypointense filling defects throughout much of the common bile duct (series 7, image 39) though there is significant artifact on the 3-D MRCP images. There are numerous cysts scattered throughout the liver measuring up to 1.8 cm in size. The spleen is mildly enlarged measuring 13.7 cm. The pancreas, adrenal glands, and kidneys are unremarkable. No signal abnormalities in the visualized lung bases or osseous structures. Midline abdominal wound. Mild dilatation in the visualized portions of the ascending and transverse colon. No free fluid in the abdomen. Procedure Note Willis Simons MD - 11/17/2024 MRI ABDOMEN AND MRCP WITHOUT CONTRAST HISTORY: Dilated CBD, right upper quadrant pain COMPARISON:CT abdomen/pelvis 11/04/2024 TECHNIQUE: Routine multiplanar multisequence MRI abdomen and MRCP wasperformed without contrast. 3D reformatted volume rendered and rotation maximumintensity projection images obtained and reviewed for evaluation of the pancreaticand biliary ductal system at the MR console under concurrent physiciansupervision. FINDINGS: Status post cholecystectomy. Mild dilatation of the intrahepatic bileducts. The common bile duct is very difficult to well visualize on the coronal oraxial T2-weighted images. On the 3-D MRCP images there is a suggestion of T2 hypointense filling defects throughout much of the common bile duct(series 7, image 39) though there is significant artifact on the 3-D MRCP images.There are numerous cysts scattered throughout the liver measuring up to 1.8 cm insize. The spleen is mildly enlarged measuring 13.7 cm. The pancreas, adrenalglands, and kidneys are unremarkable. No signal abnormalities in the visualizedlung bases or osseous structures. Midline abdominal wound. Mild dilatation inthe visualized portions of the ascending and transverse colon. No free fluidin the abdomen. IMPRESSION: *Suggestion of T2 hypointense filling defects within the common bileduct on the 3-D MRCP images, however it is unclear on this study whether this represents true filling defects such as stones or is simply artifactualin nature. The common bile duct cannot be visualized well enough toaccurately measure size, though is not likely significantly dilated. If there remainshigh clinical concern for choledocholithiasis further assessment with ERCPwould be suggested. *Mild dilatation of the intrahepatic bile ducts. Numerous benignhepatic cysts as well. *Status post cholecystectomy. *Mild splenomegaly. *Mild dilatation of the visualized portions of ascending colon and transverse colon. Electronically signed: Willis Simons MD. us Sandeep Casey MD IMG MRI PROCEDURES Final Result * ECG 12 lead (11/16/2024 9:55 AM EDT) Ventricular Rate 71 BPM GE MUSE Atrial Rate 71 BPM GE MUSE HI Interval 146 ms GE MUSE QRS DURATION 98 ms GE MUSE QT Interval 414 ms GE MUSE QTC CALCULATION(BAZE TT) 449 ms GE MUSE P [place] 67 degrees GE MUSE R-[place] 40 degrees GE MUSE T Wave [place] 57 degrees GE MUSE 11/16/2024 9:32 AM EDT 11/16/2024 10:56 AM EDT Impressions GE MUSE - 11/16/2024 10:56 AM EDT Normal sinus rhythm Normal ECG When compared with ECG of 12-NOV-2024 13:35, Nonspecific T wave abnormality now evident in Lateral Confirmed by Erlin Geller ([id number]) on 11/16/2024 10:56:16 AM Narrative Procedure Note Erlin Geller MD - 11/16/2024 IMPRESSION: Normal sinus rhythm Normal ECG When compared with ECG of 12-NOV-2024 13:35, Nonspecific T wave abnormality now evident in Lateral Confirmed by Erlin Gellre ([id number]) on 11/16/2024 10:56:16 AM us Jonelle Harrison MD ECG ORDERABLES Final Result GE MUSE * (ABNORMAL) Hepatic function panel (11/16/2024 5:36 AM EDT) Total Bilirubin 0.3 0.3 - 1.0 mg/dL 11/16/2024 10:14 AM EDT [facility] ([facility]) Bilirubin, Direct 0.1 0 - 0.2 mg/dL 11/16/2024 10:14 AM EDT [facility] ([facility]) Alkaline Phosphatase 47 34 - 104 U/L 11/16/2024 10:14 AM EDT [facility] ([facility]) AST 21 13 - 39 U/L 11/16/2024 10:14 AM EDT [facility] ([facility]) ALT (SGPT) 9 7 - 52 U/L 11/16/2024 10:14 AM EDT [facility] ([facility]) Total Protein 5.3(L) 6.0 - 8.3 g/dL 11/16/2024 10:14 AM EDT [facility] ([facility]) Albumin 3.2(L) 3.5 - 5.7 g/dL 11/16/2024 10:14 AM EDT [facility] ([facility]) Blood Venous blood specimen / Unknown Existing Catheter / Unknown 11/16/2024 5:36 AM EDT 11/16/2024 5:42 AM EDT us Sandeep Casey MD LAB BLOOD ORDERABLES Final Resul t Performing Organization Address City/[facility]/ZIP Co de Phone Number [facility]) [address], [place] [id number] * High Sensitivity Troponin I (11/16/2024 5:36 AM EDT) Pathologist [facility] [place] High Sensitivity Troponin I 2 <15 ng/L 11/16/2024 10:17 AM EDT [facility] ([facility]) Blood Venous blood specimen / Unknown Existing Catheter / Unknown 11/16/2024 5:36 AM EDT 11/16/2024 5:42 AM EDT us Jonelle Harrison MD LAB BLOOD ORDERABLES Final Res ult Performing Organization Address City/[facility]/ZIP Co de Phone Number [facility]) [address] [place] [address] * (ABNORMAL) CBC (11/16/2024 5:36 AM EDT) Auto WBC 3.15(L) 4.00 - 10.60 10*3/uL 11/16/2024 6:33 AM EDT [facility] ([facility]) RBC 2.63(L) 3.80 - 5.00 10*6/uL 11/16/2024 6:33 AM EDT [facility] ([facility]) Hemoglobin 7.8(L) 12.0 - 15.0 g/dL 11/16/2024 6:33 AM EDT [facility] ([facility]) Hematocrit 23.8(L) 36.0 - 45.0 % 11/16/2024 6:33 AM EDT [facility] ([facility]) MCV 90.5 82.0 - 98.0 fL 11/16/2024 6:33 AM EDT [facility] ([facility]) MCH 29.7 27.0 - 33.0 pg 11/16/2024 6:33 AM EDT [facility] ([facility]) MCHC 32.8 32.0 - 35.0 g/dL 11/16/2024 6:33 AM EDT [facility] ([facility]) RDW 15.3(H) 11.5 - 15.0 % 11/16/2024 6:33 AM EDT [facility] ([facility]) Platelets 277 150 - 400 10*3/uL 11/16/2024 6:33 AM EDT [facility] ([facility]) Blood Venous blood specimen / Unknown Existing Catheter / Unknown 11/16/2024 5:36 AM EDT 11/16/2024 5:42 AM EDT us Lilia Rodriguez [facility] BLOOD ORDERABLES Final Res ult [facility] ([facility]) [address] [place] [id number] * (ABNORMAL) Basic metabolic panel (11/16/2024 5:36 AM EDT) Sodium 141 136 - 145 mmol/L 11/16/2024 6:28 AM EDT [facility] ([facility]) Potassium 3.4(L) 3.5 - 5.1 mmol/L 11/16/2024 6:28 AM EDT [facility] ([facility]) Chloride 111(H) 98 - 107 mmol/L 11/16/2024 6:28 AM EDT [facility] ([facility]) CO2 24 21 - 31 mmol/L 11/16/2024 6:28 AM EDT [facility] ([facility]) BUN 14 7 - 25 mg/dL 11/16/2024 6:28 AM EDT [facility] ([facility]) Creatinine 0.77 0.60 - 1.20 mg/dL 11/16/2024 6:28 AM EDT [facility] ([facility]) Glucose 86 70 - 100 mg/dL 11/16/2024 6:28 AM EDT [facility] ([facility]) Calcium 7.9(L) 8.6 - 10.3 mg/dL 11/16/2024 6:28 AM EDT [facility] ([facility]) Anion Gap 9 7 - 20 mmol/L 11/16/2024 6:28 AM EDT [facility] ([facility]) eGFR 103.1 >60.0 mL/min/1. 73m*2 11/16/2024 6:28 AM EDT [facility] ([facility]) Comment:[facility] s estimated glomerular filtration rate [...] any one group of individuals. BUN/Creatinine Ratio 18.2 03/2024 6:28 AM EDT [facility] ([facility]) Blood Venous blood specimen / Unknown Existing Catheter / Unknown 11/16/2024 5:36 AM EDT 11/16/2024 5:42 AM EDT Lilia Rodriguez [facility] BLOOD ORDERABLES Final Res ult [facility] ([facility]) [address] [place] [address] documented in this encounter Visit Diagnoses Diagnosis Chest pain- Primary Unspecified chest pain Chest pain Unspecified chest pain Hypothyroidism Unspecified hypothyroidism GERD (gastroesophageal reflux disease) Esophageal reflux Acquired hypothyroidism Unspecified hypothyroidism Common bile duct dilatation Other specified disorders of biliary tract documented in this encounter Admitting Diagnoses Diagnosis Chest pain Unspecified chest pain documented in this encounter Administered Medications Inactive Administered Medications - up to 3 most recent administrations Medication Order MAR Action Action Date Dose Rate Site albuterol 90 mcg/actuation inhaler 2 puff 2 puff, inhalation, Every 6 hours PRN, shortness of breath, wheezing, Starting on Wed11/15/24 at 2104 aspirin chewable tablet 81 mg 81 mg, oral, Daily with breakfast, First dose on Wed11/16/24 at 0800, For 99 days Given 11/17/2024 9:40 AM EDT 81 mg Given 11/16/2024 8:42 AM EDT 81 mg clopidogrel (Plavix) tablet 75 mg 75 mg, oral, Daily, First dose on Wed11/15/24 at 2015, For 99 days Given 11/17/2024 9:41 AM EDT 75 mg Given 11/16/2024 10:03 AM EDT 75 mg Given 11/15/2024 9:12 PM EDT 75 mg colchicine split tablet 0.3 mg 0.3 mg, oral, Every other day, First dose on Wed11/16/24 at 1000, For 99 days Given 11/16/2024 10:03 AM EDT 0.3 mg diphenhydrAMINE (BENADryl) capsule 25 mg 25 mg, oral, Every 6 hours PRN, itching, Starting on Wed11/15/24 at 2042, For 99 days, Ok to give for nausea vomiting Given 11/16/2024 10:07 AM EDT 25 mg diphenhydrAMINE (BENADryl) injection 25 mg 25 mg, intravenous, Every 6 hours PRN, nausea, vomiting, Starting on Wed11/15/24 at 2042, For 99 days Given 11/16/2024 3:39 AM EDT 25 mg Given 11/15/2024 9:14 PM EDT 25 mg escitalopram (Lexapro) tablet 20 mg 20 mg, oral, Daily, First dose on Wed11/15/24 at 2015, For 99 days Given 11/17/2024 9:41 AM EDT 20 mg Given 11/16/2024 10:03 AM EDT 20 mg heparin lock flush 100 unit/mL syringe 500 Units 500 Units, intra-catheter, Once as needed, line care, Starting on Wed11/17/24 at 1112, For 99 days Given 11/17/2024 11:59 AM EDT 500 Units HYDROcodone-acetaminophen (Parma) 5-325 mg per tablet 2 tablet 2 tablet, oral, Every 4 hours PRN, moderate-severe pain (4-10 pain score), Starting on Heena 11/16/24 at 1355, For 98 days Given 11/17/2024 9:42 AM EDT 2 tablets Given 11/17/2024 5:11 AM EDT 2 tablets Given 11/16/2024 10:17 PM EDT 2 tablets HYDROmorphone (Dilaudid) injection 0.5 mg 0.5 mg, intravenous, Every 4 hours PRN, severe pain (8-10 pain score), Starting on Wed11/15/24 at 2039, For 99 days Given 11/16/2024 8:42 AM EDT 0.5 mg Given 11/16/2024 3:40 AM EDT 0.5 mg Given 11/15/2024 9:14 PM EDT 0.5 mg levothyroxine (Synthroid, Levoxyl) tablet 75 mcg 75 mcg, oral, Daily before breakfast, First dose on Heena 11/16/24 at 0730, For 99 days Given 11/17/2024 5:11 AM EDT 75 mcg Given 11/16/2024 6:04 AM EDT 75 mcg liothyronine (Cytomel) tablet 5 mcg 5 mcg, oral, Daily, First dose on Wed11/15/24 at 2015, For 99 days Given 11/16/2024 10:01 AM EDT 5 mcg metoprolol succinate XL (Toprol-XL) 24 hr tablet 25 mg 25 mg, oral, Daily, First dose on Wed11/15/24 at 2014, For 99 days, Do not crush or chew. Given 11/17/2024 9:40 AM EDT 25 mg Given 11/16/2024 10:02 AM EDT 25 mg mirtazapine (Remeron) tablet 45 mg 45 mg, oral, Nightly, First dose on Wed11/15/24 at 2200, For 99 days Given 11/16/2024 10:17 PM EDT 45 mg Given 11/15/2024 10:15 PM EDT 45 mg pantoprazole (ProtoNix) EC tablet 40 mg 40 mg, oral, 2 times daily before meals, First dose on Heena 11/16/24 at 0700, Do not crush, chew, or split., Indication: GERD Given 11/16/2024 4:13 PM EDT 40 mg Given 11/16/2024 6:03 AM EDT 40 mg potassium chloride CR (Klor-Con M20) ER tablet 40 mEq 40 mEq, oral, Once, On Heena 11/16/24 at 0815, For 1 dose, Best given with food and plenty of water to minimize gastric irritation. Do not crush or chew. Given 11/16/2024 10:02 AM EDT 40 mEq promethazine (Phenergan) tablet 25 mg 25 mg, oral, 2 times daily PRN, nausea, vomiting, Starting on Wed11/15/24 at 2042, For 99 days Given 11/17/2024 9:41 AM EDT 25 mg Given 11/16/2024 4:14 PM EDT 25 mg ranolazine (Ranexa) 12 hr tablet 500 mg 500 mg, oral, 2 times daily, First dose on Wed11/15/24 at 2200, For 99 days, Do not crush, chew, or split. Given 11/17/2024 9:41 AM EDT 500 mg Given 11/16/2024 10:18 PM EDT 500 mg Given 11/16/2024 10:03 AM EDT 500 mg rosuvastatin (Crestor) tablet 40 mg 40 mg, oral, Nightly, First dose on Wed11/15/24 at 2200, For 99 days Given 11/16/2024 10:17 PM EDT 40 mg Given 11/15/2024 10:15 PM EDT 40 mg sodium chloride 0.9 % infusion 75 mL/hr, intravenous, Continuous, Starting on Wed11/15/24 at 2045, For 1 day Rate/Dose Verify 11/16/2024 6:12 PM EDT 75 mL/hr 75 mL/hr Rate/Dose Verify 11/16/2024 4:00 PM EDT 75 mL/hr 75 mL/h r Rate/Dose Verify 11/16/2024 1:36 PM EDT 75 mL/hr 75 mL/h r sodium chloride flush 10 mL 10 mL, intravenous, Every 8 hours PRN, line care, Starting on Wed11/15/24 at 2004, For 99 days sucralfate (Carafate) tablet 1 g 1 g, oral, 4 times daily before meals and nightly, First dose on Wed11/15/24 at 2200, For 99 days, Give on an empty stomach (1 hr before meals, at bedtime). Separate all other meds by at least 2 hours (exception: antacids may be given only 30 minutes apart). Given 11/17/2024 11:06 AM EDT 1 g Given 11/17/2024 5:11 AM EDT 1 g Given 11/16/2024 10:18 PM EDT 1 g traZODone (Desyrel) tablet 100 mg 100 mg, oral, Nightly, First dose on Wed11/15/24 at 2200, For 99 days Given 11/16/2024 10:17 PM EDT 100 mg Given 11/15/2024 10:15 PM EDT 100 mg verapamil (Calan) tablet 40 mg 40 mg, oral, Every 8 hours scheduled, First dose on Wed11/15/24 at 2200, For 99 days Given 11/17/2024 5:13 AM EDT 40 mg Given 11/16/2024 10:17 PM EDT 40 mg Given 11/16/2024 2:08 PM EDT 40 mg documented in this encounter Active and Recently Administered Medications Times are shown in EDT. Scheduled Medication Order 11/15/2024 11/16/2024 11/17/2024 aspirin chewable tablet 81 mg 81 mg, oral, Daily with breakfast, First dose on Wed11/16/24 at 0800, For 99 days 0842 (Given - Provider: Desmond Bright RN) 0940 (Given - Provider: Rafael Perez, RN) clopidogrel (Plavix) tablet 75 mg 75 mg, oral, Daily, First dose on Wed11/15/24 at 2015, For 99 days 2 (Given - Provider: Justine Kumar RN) 1003 (Given - Provider: Desmond Bright RN) 0941 (Given - Provider: Rafael Perez, RN) colchicine split tablet 0.3 mg 0.3 mg, oral, Every other day, First dose on Wed11/16/24 at 1000, For 99 days 1003 (Given - Provider: Desmond Bright, RN) escitalopram (Lexapro) tablet 20 mg 20 mg, oral, Daily, First dose on Wed11/15/24 at 2014, For 99 days 2014 (Not Given - Provider: Justine Kumar RN - Reason: Other - Comment: Pt stated I already took this today ) 1003 (Given - Provider: Desmond Bright RN) 0941 (Given - Provider: Rafael Perez RN) levothyroxine (Synthroid, Levoxyl) tablet 75 mcg 75 mcg, oral, Daily before breakfast, First dose on Wed11/16/24 at 0730, For 99 days 0604 (Given - Provider: Justine Kumar RN) 0511 (Given - Provider: Justine Kumar RN) liothyronine (Cytomel) tablet 5 mcg 5 mcg, oral, Daily, First dose on Wed11/15/24 at 2014, For 99 days 2014 (Not Given - Provider: Justine Kumar RN - Reason: Other - Comment: Pt stated I already took this today ) 1001 (Given - Provider: Desmond Bright RN) 1000 (Not Given - Provider: Rafael Perez RN - Reason: Patient/family refused) metoprolol succinate XL (Toprol-XL) 24 hr tablet 25 mg 25 mg, oral, Daily, First dose on Wed11/15/24 at 2014, For 99 days, Do not crush or chew. 2014 (Not Given - Provider: Justine Kumar RN - Reason: Order parameters not met) 1002 (Given - Provider: Desmond Bright RN) 0940 (Given - Provider: Rafael Perez, DEE) mirtazapine (Remeron) tablet 45 mg 45 mg, oral, Nightly, First dose on Wed11/15/24 at 2200, For 99 days 2215 (Given - Provider: Justine Kumar RN) 2217 (Given - Provider: Justine Kumar RN) pantoprazole (ProtoNix) EC tablet 40 mg 40 mg, oral, 2 times daily before meals, First dose on Wed11/16/24 at 0700, Do not crush, chew, or split., Indication: GERD 0603 (Given - Provider: Justine Kumar RN)1613 (Given - Provider: Desmond Bright RN) 0511 (Not Given - Provider: Justine Kumar RN - Reason: Patient/family refused)1600 (Canceled Entry - Provider: Automatic Discharge Provider - Comment: Automatically canceled at discontinue of medication order) potassium chloride CR (Klor-Con M20) ER tablet 40 mEq (COMPLETED) 40 mEq, oral, Once, On Heena 11/16/24 at 0815, For 1 dose, Best given with food and plenty of water to minimize gastric irritation. Do not crush or chew. 1002 (Given - Provider: Desmond Bright RN) ranolazine (Ranexa) 12 hr tablet 500 mg 500 mg, oral, 2 times daily, First dose on Wed11/15/24 at 2200, For 99 days, Do not crush, chew, or split. 2215 (Given - Provider: Justine Kumar RN) 1003 (Given - Provider: Desmond Bright RN)2218 (Given - Provider: Justine Kumar RN) 0941 (Given - Provider: Rafael Perez RN) rosuvastatin (Crestor) tablet 40 mg 40 mg, oral, Nightly, First dose on Wed11/15/24 at 2200, For 99 days 2215 (Given - Provider: Justine Kumar RN) 2217 (Given - Provider: Justine Kumar RN) sucralfate (Carafate) tablet 1 g 1 g, oral, 4 times daily before meals and nightly, First dose on Wed11/15/24 at 2200, For 99 days, Give on an empty stomach (1 hr before meals, at bedtime). Separate all other meds by at least 2 hours (exception: antacids may be given only 30 minutes apart). 2216 (Given - Provider: Justine Kumar RN) 0603 (Given - Provider: Justine Kumar, DEE)1159 (Given - Provider: Desmond Bright RN)1613 (Given - Provider: Desmond Bright RN)2218 (Given - Provider: Justine Kumar, DEE) 0511 (Given - Provider: Justine Kumar, DEE)1106 (Given - Provider: Rafael Perez, DEE)1600 (Canceled Entry - Provider: Automatic Discharge Provider - Comment: Automatically canceled at discontinue of medication order) traZODone (Desyrel) tablet 100 mg 100 mg, oral, Nightly, First dose on Wed11/15/24 at 2200, For 99 days 2214 (Given - Provider: Justine Kumar RN) 2216 (Given - Provider: Justine Kumar RN) verapamil (Calan) tablet 40 mg 40 mg, oral, Every 8 hours scheduled, First dose on Wed11/15/24 at 2200, For 99 days 2214 (Given - Provider: Justine Kumar RN) 0603 (Given - Provider: Justine Kumar RN)1408 (Given - Provider: Yue Munoz, DEE)2217 (Given - Provider: Justine Kumar RN) 0513 (Given - Provider: Justine Kumar RN)1400 (Canceled Entry - Provider: Automatic Discharge Provider - Comment: Automatically canceled at discontinue of medication order) Continuous Medication Order 11/15/2024 11/16/2024 11/17/2024 sodium chloride 0.9 % infusion () 75 mL/hr, intravenous, Continuous, Starting on Wed11/15/24 at 2045, For 1 day 2113 (New Bag - Provider: Justine Kumar RN)2238 (Rate/Dose Verify - Provider: Justine Kumar RN) 0040 (Rate/Dose Verify - Provider: Justine Kumar RN)0302 (Rate/Dose Verify - Provider: Justine Kumar RN)0558 (Rate/Dose Verify - Provider: Justine Kumar RN)1129 (New Bag - Provider: Tamir Bonilla RN)1336 (Rate/Dose Verify - Provider: Desmond Bright RN)1600 (Rate/Dose Verify - Provider: Desmond Bright RN)1812 (Rate/Dose Verify - Provider: Yue Munoz RN)2009 (Stopped - Provider: Justine Kumar RN - Comment: [Order ends at this time. Document the following action when infusion is complete: Stopped]) PRN Medication Order 11/15/2024 11/16/2024 11/17/2024 acetaminophen (Tylenol) tablet 650 mg 650 mg, oral, Every 6 hours PRN, mild pain (1-3 pain score), headaches, fever greater than or equal to 38 degrees Celsius, (1-3), Starting on Wed11/15/24 at 2004, For 99 days albuterol 90 mcg/actuation inhaler 2 puff 2 puff, inhalation, Every 6 hours PRN, shortness of breath, wheezing, Starting on Wed11/15/24 at 210 diphenhydrAMINE (BENADryl) capsule 25 mg (CANCELED)(Linked Group 1) 25 mg, oral, Every 6 hours PRN, itching, Starting on Wed11/15/24 at 2041, For 99 days, Ok to give for nausea vomiting 2113 (See Alternative - Provider: Justine Kumar RN) 033 (See Alternative - Provider: Justine Kumar RN)1007 (Given - Provider: Desmond Bright RN) diphenhydrAMINE (BENADryl) injection 25 mg (CANCELED)(Linked Group 1) 25 mg, intravenous, Every 6 hours PRN, nausea, vomiting, Starting on Wed11/15/24 at 2041, For 99 days 2113 (Given - Provider: Justine Kumar RN) 033 (Given - Provider: Justine Kumar, RN)1007 (See Alternative - Provider: Desmond Bright RN) heparin lock flush 100 unit/mL syringe 500 Units 500 Units, intra-catheter, Once as needed, line care, Starting on Wed11/17/24 at 1112, For 99 days 1159 (Given - Provider: Rafael Perez, DEE) HYDROcodone-acetamino phen (Parma) 5-325 mg per tablet 2 tablet 2 tablet, oral, Every 4 hours PRN, moderate-severe pain (4-10 pain score), Starting on Heena 11/16/24 at 1355, For 98 days 1405 (Given - Provider: Yue Munoz RN)1817 (Given - Provider: Desmond Bright, RN)2217 (Given - Provider: Justine Kumar, DEE) 0511 (Given - Provider: Justine Kumar, DEE)0942 (Given - Provider: Rafael Perez, RN) HYDROmorphone (Dilaudid) injection 0.5 mg (CANCELED) 0.5 mg, intravenous, Every 4 hours PRN, severe pain (8-10 pain score), Starting on Wed11/15/24 at 2038, For 99 days 2114 (Given - Provider: Justine Kumar RN) 0340 (Given - Provider: Justine Kumar RN)0842 (Given - Provider: Desmond Bright RN) hydrOXYzine HCL (Atarax) tablet 50 mg 50 mg, oral, Nightly PRN, anxiety, Starting on Wed11/15/24 at 2006, For 99 days promethazine (Phenergan) tablet 25 mg 25 mg, oral, 2 times daily PRN, nausea, vomiting, Starting on Wed11/15/24 at 2041, For 99 days 1614 (Given - Provider: Desmond Bright RN)2213 (Not Given - Provider: Justine Kumar RN - Reason: Order parameters not met - Comment: too close to previous dose) 0941 (Given - Provider: Rafael Perez RN) sennosides-docusate sodium (Kadie-Colace) 8.6-50 mg per tablet 1 tablet 1 tablet, oral, 2 times daily PRN, constipation, Starting on Wed11/15/24 at 2003, For 99 days sodium chloride flush 10 mL(Linked Group 2) 10 mL, intravenous, Every 8 hours PRN, line care, Starting on Wed11/15/24 at 2003, For 99 days Linked Groups Order Group 1: diphenhydrAMINE (BENADryl) injection 25 mg (CANCELED)Jump to med 25 mg, intravenous, Every 6 hours PRN, nausea, vomiting, Starting on Wed11/15/24 at 2041, For 99 days Or diphenhydrAMINE (BENADryl) capsule 25 mg (CANCELED)Jump to med 25 mg, oral, Every 6 hours PRN, itching, Starting on Wed11/15/24 at 2041, For 99 days, Ok to give for nausea vomiting Group 2: Insert peripheral IV (CANCELED) Once, On Wed11/15/24 at 2004, For 1 occurrence And Saline lock IV (CANCELED) Once, On Wed11/15/24 at 2004, For 1 occurrence And sodium chloride flush 10 mLJump to med 10 mL, intravenous, Every 8 hours PRN, line care, Starting on Wed11/15/24 at 2004, For 99 days documented in this encounter Care Teams Plastic Process Technician Relationship Specialty Start Date End Date [facility] Alas [facility] [address] [facility] [place] [id number] PCP - General Family Medicine 08/17/24 documented as of this encounter
[2024-11-19] VITALS (34 sets, daily range): BP systolic 110–130; BP diastolic 64–88; PULSE 60–92; TEMP 36.4–37.1; O2SAT 95–100; BMI 25.8; BMI 30.1
--- NOTE | 2024-11-19 09:21 | XR_ITS ---
[facility] [place] [id number] Patient Name: JUAN KONG MRN: [id number] date: 1990 Sex: F Assigned Patient Location: ED.MAIN Current Patient Location: ED.MAIN Accession/Order Number: [id number] Exam Date: 11/19/2024 09:40 Report Date: 11/19/2024 09:54 At the request of: WALKER WILLOUGHBY MD Procedure: XR chest 1V Single view chest: CLINICAL HISTORY: cp COMPARISON: None FINDINGS: The heart is normal in size. The lungs are clear. The pulmonary vasculature is normal. Mediastinum and hilar regions are unremarkable. No pleural effusions are seen. Visualized bones are intact. Presumed shunt tip within the SVC. XR/XR chest 1V IMPRESSION: NO ACUTE PROCESS. Impression dictated by: Cornel Medel Jr., D.O. 11/19/2024 9:54 AM Dictation Location: [place] [id number] Electronically authenticated by: [id number] Date: 11/19/2024 09:54
--- OUTSIDE RECORDS SUMMARY | 2024-11-19 09:22 | XMS_ITS | Encounter Summary ---
Author Organization [facility] Address [address] [place] [address] Care Team Providers Care Bulk System Operator Name Role Phone VanessaAnna hendricks FLOOR REPRESENTATIVE Unavailable Unallocated, Noms Provider Primary Care Provi pako Tj Najera Unavailable [phone] Thomas Alas MD Primary Care Provider [phone] Encounter Details Date Type Department Care Team (Late st Contact Info) Description 11/20/2022 Abstract [facility] [address] [place] [address] Tj Najera, PA [address] [facility] [place] [address] Social History Tobacco Use Types [...] on filedocumented in this encounter Care Teams Bulk System Operator Relationship Specialty Start Date End Date Unallocated, Noms ProviderMD [address] [place] [address] PCP - General 07/23/22 12/13/23 Tj Najera PA [address] [place] [address] PCP - Medical [facility] 07/16/22 04/24/23 Thomas Alas MD [address] [place] [address] PCP - General Family Medicine 12/14/23 Anna Mendez NP [address] [place] [address] Referring Physician Family Medicine 07/23/22 documented as of this encounter
--- OUTSIDE RECORDS SUMMARY | 2024-11-19 09:22 | XMS_ITS | Encounter Summary ---
Author Organization [facility] Address [address] [place] [address] Care Team Providers Care Paper Machine Back Tender Name Role Phone Anna Mendez REGISTERED NURSE FETAL Unavailable Unallocated, Noms Provider Primary Care Provi pako Tj Najera Unavailable [phone] Thomas Alas MD Primary Care Provider [phone] Encounter Details Date Type Department Care Team (Late st Contact Info) Description 10/30/2022 Abstract [facility] [address] [place] [address] Tj Najera, PA [address] [facility] [place] [address] Social History Tobacco Use Types [...] filedocumented in this encounter Care Teams Paper Machine Back Tender Relationship Specialty Start Date End Date Unallocated, Noms ProviderMD [address] [place] [address] PCP - General 07/23/22 12/13/23 Tj Najera PA [address] [place] [address] PCP - Medical [facility] 07/16/22 04/24/23 Thomas Alas MD [address] [place] [address] PCP - General Family Medicine 12/14/23 Anna Mendez NP [address] [place] [address] Referring Physician Family Medicine 07/23/22 documented as of this encounter
--- OUTSIDE RECORDS SUMMARY | 2024-11-19 09:22 | XMS_ITS | Encounter Summary ---
Author Organization [facility] Address [address] [place] [address] Care Team Providers Care Rod Buster Helper Name Role Phone Anna Mendez FARM FIELD MANAGER Unavailable Unallocated, Noms Provider Primary Care Provi pako Tj Najera Unavailable [phone] Thomas lAas MD Primary Care Provider [phone] Encounter Details Date Type Department Care Team (Late st Contact Info) Description 10/05/2022 Abstract [facility] [address] [place] [address] Tj Najera, PA [address] [facility] [place] [address] Social History Tobacco Use Types [...] on filedocumented in this encounter Care Teams Rod Buster Helper Relationship Specialty Start Date End Date Unallocated, Noms Provider, [address] [place] [address] PCP - General 07/23/22 12/13/23 Tj Najera PA [address] [place] [address] PCP - Medical [facility] 07/16/22 04/24/23 Thomas Alas MD [address] [place] [address] PCP - General Family Medicine 12/14/23 Anna Mendez NP [address] [place] [address] Referring Physician Family Medicine 07/23/22 documented as of this encounter
--- OUTSIDE RECORDS SUMMARY | 2024-11-19 09:22 | XMS_ITS | Clinical Summary ---
Author Organization [facility] Address [address] [place] [address] Care Team Providers Care Surgical Supervisor Name Role Phone Mateusz Rosales MD Unavailable [phone] Source Comments The following information is NOT included in Care Everywhere downloads:Psychiatric notes, ECG results, Cardiac Rehab notes, Pulmonary Function notes, data from [employer] (includes but not limited toPregnancy data,audiograms, eye exams, pre-surgical evaluation notes, well-child exam data).[facility] Medications No known medications Active Problems Problem Noted Date Diagnosed Date 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 -Follow up with medical specialists as indicated. -Follow up as needed Assessment & Plan (08/29/2024 12:39 PM EDT): -Will follow up after she sees Dr. Holley and Jacquelyn. She will call to let me know when that is completed. Assessment & Plan (07/17/2024 3:43 PM EDT): -Possible recurrent disease severely affecting their quality of life -Discussed prohibitive risk of attempting minimally invasive approach given prior laparotomy and reasonable follow up with Dr. Holley -I discussed the case directly with Dr. Holley regarding the adhesions and possible options. -High risk operative candidate, risk factors for redo robotic release include prior laparotomy and open repair Encounters Date Type Department Care Team Description 10/09/2024 1:45 PM EDT Telemedicine [facility] [address] [place] [address] Mateusz Rosales MD Median arcuate ligament syndrome (HCC) (Primary Dx) 10/09/2024 Travel 10/05/2024 Telephone [facility] Surgery [address] [address] Mateusz Rosales MD 08/29/2024 1:00 PM EDT Telemedicine [address] [address] Mateusz Rosales MD Median arcuate ligament syndrome (HCC) (Primary Dx) from Last 3 Months Immunizations Immunization Administration Dates Next Due Influenza, injectable, quadr ivalent, preservative free (OTG=800) 11/12/2022,11/16/2021,12/25/2020 Influenza, unspecified formulation (CVX=88) 12/16,11/28/2018 Social History Tobacco Use Types Packs/Day Years Used Date Smoking Tobacco: Never Smokeless Tobacco: Never Tobacco Cessation:Counseling Given: Not Answered Comments Unknown Sex and Gender Information Value Date Recorded Sex Assigned at Not on file Legal Sex Female 2:52 PM EST Gender Identity Not on file Sexual Orientation Not on file Last Filed Vital Signs Vital Sign Reading Time Taken Comments Blood Pressure 126/73 07/17/2024 2:27 PM EDT Pulse 54 07/17/2024 2:27 PM EDT Temperature 36.4 C (97.5 F) 07/17/2024 2:27 PM EDT Respiratory Rate 16 07/17/2024 2:27 PM EDT Oxygen Saturation 98% 07/17/2024 2:27 PM EDT Inhaled Oxygen Concentration - - Weight 87.5 kg (192 lb 12.8 oz) 07/17/2024 2:27 PM EDT Height - - Body Mass Index - - Plan of Treatment Health Maintenance Due Date Last Done Comments Mammography (shared decision-making, age 35-39) 1989 HIV Test 2004 Hepatitis C Antibody 2007 Tdap Booster 2007 Hepatitis A (HAV) Vaccine (optional start 19+ years) 2008 Hepatitis B (HBV) Vaccine (1 of 3 - 19+ 3-dose series) 2008 HPV Vaccine (optional start 27-45 years) 2016 Pap Smear 05/22/2023 05/21/2020 COVID-19 Vaccine (2024- season) 2024 02/18/2021, 06/23/2020 Influenza Vaccine (#1) 2024 3, 11/16/2021, 01/01/2021, Additional history exists Shingles (RZV) Vaccine (1 of 2) 2039 Mammography Discontinued Pneumococcal Vaccine(s) Aged Out No l onger eligible based on patient's age to complete this topic Insurance [employer] Care Teams Surgical Supervisor Relationship Specialty Start Date End Date Mateusz Rosales MD [address] [place] [address] Physician General Surgery 05/20/24
--- OUTSIDE RECORDS SUMMARY | 2024-11-19 09:22 | XMS_ITS | Encounter Summary ---
Author Organization [facility] Address [address] [place] [address] Care Team Providers Care Park Interpretive Ranger Name Role Phone Anna Mendez PRINTING EQUIPMENT MECHANIC Unavailable Unallocated, Noms Provider Primary Care Provi pako Tj Najera Unavailable [phone] Thomas Alas MD Primary Care Provider [phone] Encounter Details Date Type Department Care Team (Late st Contact Info) Description 09/07/2022 Abstract [facility] [address] [place] [address] Tj Najera, PA [address] [facility] [place] [address] Social History Tobacco Use Types [...] on filedocumented in this encounter Care Teams Park Interpretive Ranger Relationship Specialty Start Date End Date Unallocated, Noms Provider, [address] [place] [address] PCP - General 07/23/22 12/13/23 jT Najera PA [address] [place] [address] PCP - Medical [facility] 07/16/22 04/24/23 Thomas Alas MD [address] [place] [address] PCP - General Family Medicine 12/14/23 Anna Mendez NP [address] [place] [address] Referring Physician Family Medicine 07/23/22 documented as of this encounter
--- OUTSIDE RECORDS SUMMARY | 2024-11-19 09:22 | XMS_ITS | Encounter Summary ---
Author Organization [facility] Address [address] [place] [address] Care Team Providers Care Document Controller Name Role Phone VanessaAnna hendricks SMT TECHNICIAN Unavailable Unallocated, Noms Provider Primary Care Provi pako Tj Najera Unavailable [phone] Thomas Alas MD Primary Care Provider [phone] Encounter Details Date Type Department Care Team (Late st Contact Info) Description 10/02/2022 Abstract [facility] [address] [place] [address] Raegan Frye PA [address] [facility] [address] [place], [place] [id number] Social History Tobacco Use Types Packs/Day Years [...] on filedocumented in this encounter Care Teams Document Controller Relationship Specialty Start Date End Date Unallocated, [place]oms [place] [address] PCP - General 07/23/22 12/13/23 Tj Najera PA [address] [place] [address] PCP - Medical [facility] 07/16/22 04/24/23 Thomas Alas MD [address] [place] [address] PCP - General Family Medicine 12/14/23 Anna Mnedez NP [address] [place] [address] Referring Physician Family Medicine 07/23/22 documented as of this encounter
--- OUTSIDE RECORDS SUMMARY | 2024-11-19 09:23 | XMS_ITS | Encounter Summary ---
Author Organization [facility] tem Address [id number] [address] [place] [address] Care Team Providers Care Office Services Manager Name Role Phone No Pcp, No Pcp Primary Care Provider Unavailabl e Encounter Details Date Type Department Care Team (Late st Contact Info) Description 09/28/2017 Orders Only Maternal- Medicine at [facility] [address] [place] [id number] Holger Alcala MD [address] [facility] [address] [place] [address] Social History Tobacco Use Types Packs/Day Years [...] on filedocumented in this encounter Care Teams Office Services Manager Relationship Specialty Start Date End Date No Pcp, [place] [address] PCP - General Family Medicine 09/22/17 documented as of this encounter
--- OUTSIDE RECORDS SUMMARY | 2024-11-19 09:23 | XMS_ITS | Clinical Summary ---
Author Organization [facility] Address [id number] [address] [place] [address] Care Team Providers Care Outside Repairer Special Name Role Phone No Pcp, No Pcp [...] Noted Date Diagnosed Date Hypothyroidism affecting in [facility] 09/22/2017 Family History Medical History Relation [...] on file Insurance [employer] Care Teams Outside Repairer Special Relationship Specialty Start Date End Date No Pcp, [place] [address] PCP - General Family Medicine 09/22/17
--- OUTSIDE RECORDS SUMMARY | 2024-11-19 09:23 | XMS_ITS | Patient Health Record ---
Author Organization [facility] in [place] Address [address] [place] [address] Care Team Providers Care Nursing Home Admissions Director Name Role Phone Brandyn Alas Primary Care Provider Allergies Allergen (clinical drug ingredient) Drug/Non Drug Allergy documented on EMR Reaction Allergy Type Onset Date Status codeine Codeine vomiting Drug Allergy Active Non-steroidal anti-inflammatory agent (FN) NSAIDs Gastric bypass Drug Allergy Active Results Component Value Reference Range Notes CBC AUTO DIFF Reviewed date:08/10/2024 07:02:35 PM Interpretation: Performing Lab: Notes/Report: [facility] , White Blood Count 9.3 4.0-11.0 10 [...] 3/uL Performing Lab: see note ML - [facility] LB MAGNESIUM Reviewed date:02/16/2024 03:19:17 PM Interpretation: Performing Lab: Notes/Report: HOME HEALTH NURSE [facility] , Magnesium 1.8 1.8-2.4 mg/dL Performing Lab: see note ML - [facility] LB PHOSPHORUS Reviewed date:02/16/2024 03:19:17 PM Interpretation: Performing Lab: Notes/Report: HOME HEALTH NURSE [facility] , Phosphorus 3.3 2.6-4.7 mg/dL Performing Lab: see note - [facility] LB LACTATE or LACTIC ACID Reviewed date:08/02/2024 05:29:08 PM Interpretation: Performing Lab: Notes/Report: [facility] , Lactate/Lactic Acid 2.2 0.4-2.0 mmol/L RESULT S CALLED TO DR. DAMON Performing Lab: see note - [facility] LB LACTATE or LACTIC ACID Reviewed date:08/15/2024 06:53:10 PM Interpretation: Performing Lab: Notes/Report: [facility] , Lactate/Lactic Acid 0.6 0.4-2.0 mmol/L Performing Lab: see note - [facility] LB UA (CLEAN or CATCH) GENERAL CLAIMS AGENT or M ICRO IF IND. Reviewed date:08/15/2024 06:53:11 PM Interpretation: Performing Lab: Notes/Report: [facility] , Color Urine LT. YELLOW YELLOW Clarity Urine CLEAR CLEAR Specific [place] Urine 1.010 1.005-1.025 pH Urine 6.0 5.0-9.0 Protein Urine NEGATIVE NEG/TRACE mg/dL Glucose Urine UA NEGATIVE NEGATIVE mg/dL Bilirubin Urine NEGATIVE NEGATIVE Ketones Urine 15 NEGATIVE mg/dL Blood Urine NEGATIVE NEGATIVE Nitrite Urine NEGATIVE NEGATIVE Urobilinogen Urine 0.2 0.2-1.0 EU/dL Leukocyte Esterase Urine NEGATIVE NEGATIVE Urine Microscopic Indicated NO Performing Lab: see note ML - [facility] LB XR chest 2V Reviewed date:08/15/2024 06:53:11 PM Interpretation: Performing Lab: Notes/Report: Source Facility: [place] [address] [place] [address] XRay Report Signed Patient: JUAN GARCIA MR#: [id number] : 1990 Acct:[id number] Age/Sex: 34 / F ADM Date: 08/15/24 Loc: ER Attending Dr: Ordering Physician: Domenica Romeo Date of Service: 08/15/24 Procedure(s): XR chest 2V Accession Number(s): [id number] cc: Domenica Romeo; Britt Alas M.D. [place] [address] Patient Name: JUAN GARCIA MRN: [id number] date: 1990 Sex: F Assigned Patient Location: ER Current Patient Location: ER Accession/Order Number: [id number] Exam Date: 08/15/2024 14:21 Report Date: 08/15/2024 14:22 At the request of: DOMENICA ROMEO PROFESSIONAL WRESTLER Procedure: XR chest 2V Chest 2 views [...] Jr., D.O. 08/15/2024 2:22 PM Dictation Location: [place] [address] Electronically authenticated by: [id number] Y Date: 08/15/2024 14:22 Dictated By: Cronel Medel M.D. Signed By: 08/15/24 1424 DD/ 1422 TD/TT: Computer Support Analyst: CBC AUTO DIFF Reviewed date:08/28/2024 06:06:36 PM Interpretation: Performing Lab: Notes/Report: [facility] , White Blood Count 5.2 4.0-11.0 10 [...] fL Performing Lab: see note ML - [facility] LB PROF 14(COMP METB) Reviewed date:08/28/2024 06:06:36 PM Interpretation: Performing Lab: Notes/Report: [facility] , Sodium 140 136-145 mmol/L Potassium 3.1 [...] 0.8 Performing Lab: see note ML - [facility] LB Blood Culture 2 Reviewed date:09/04/2024 02:45:30 PM Interpretation: Performing Lab: Notes/Report: LEFT WRIST [facility] , Blood Culture 2 See Below For Report Blood Culture 2 NG5D NO GROWTH AT 5 DAYS.^NO GROWTH AT 5 DAYS. Performing Lab: see note - [facility] LB Blood Culture 1 Reviewed date:09/24/2024 07:41:50 PM Interpretation: Performing Lab: Notes/Report: [facility] , Blood Culture 1 See Below For Report NG5D NO GROWTH AT 5 DAYS.^NO GROWTH AT 5 DAYS. Blood Culture 1 Performing Lab: see note - [facility] LB CBC AUTO DIFF Reviewed date:11/20/2023 08:26:20 PM Interpretation: Performing Lab: Notes/Report: [facility] , White Blood Count 3.7 4.0-11.0 [...] 3/uL Performing Lab: see note ML - [facility] LB PROF 14(COMP METB) Reviewed date:11/20/2023 08:26:20 PM Interpretation: Performing Lab: Notes/Report: [facility] , Sodium 138 136-145 mmol/L Potassium 3.8 [...] 1.1 Performing Lab: see note ML - [facility] LB UA (CLEAN or CATCH) GENERAL CLAIMS AGENT or M ICRO IF IND. Reviewed date:11/20/2023 08:26:20 PM Interpretation: Performing Lab: Notes/Report: [facility] , Color Urine YELLOW YELLOW Clarity Urine CLEAR CLEAR Specific [place] Urine 1.015 1.005-1.025 pH Urine 7.0 5.0-9.0 Protein Urine NEGATIVE NEG/TRACE mg/dL Glucose Urine UA NEGATIVE NEGATIVE mg/dL Bilirubin Urine NEGATIVE NEGATIVE Ketones Urine NEGATIVE NEGATIVE mg/dL Blood Urine NEGATIVE NEGATIVE Nitrite Urine NEGATIVE NEGATIVE Urobilinogen Urine 0.2 0.2-1.0 EU/dL Leukocyte Esterase Urine NEGATIVE NEGATIVE Urine Microscopic Indicated NO Performing Lab: see note ML - [facility] LB Anaerobic Culture Reviewed date:11/25/2023 07:16:42 [...] S F Aerobic [facility] Organism: Gram negative jeffery : O:GNR Isolated O:PSAV Isolated Organism: 2.2 Antibiotic Interpretation SANDHYA Status Amikacin Amikacin S F Cefepime Cefepime S F Ceftazidime Ceftazidime S F Gentamicin Gentamicin S F Imipenem Imipenem I F Levofloxacin Levofloxacin R F Meropenem Meropenem S F Piperacillin Piperacillin S F Ticarcillin Ticarcillin S F Tobramycin Tobramycin S F Aerobic Culture [address] [place], [place] [id number] Aerobic Culture Organism: Gram negative jeffery : O:GNR Isolated O:PSAV Isolated Organism: 2.2 Antibiotic Interpretation SANDHYA Status Amikacin Amikacin S F Cefepime Cefepime S F Ceftazidime Ceftazidime S F Gentamicin Gentamicin S F Imipenem Imipenem I F Levofloxacin Levofloxacin R F Meropenem Meropenem S F Piperacillin Piperacillin S F Ticarcillin Ticarcillin S F Tobramycin Tobramycin S F Aerobic Culture Roofer Assistant: Thierno Almanza PhD, Phone: [phone] Aerobic Culture Organism: Gram negative jeffery : [...] LC - [facility] LB SEE REPORT - Diamond Cleaver Id information not found for OBX-specific senior copywriter legend UA RANDOM W or MICROSCOPIC Reviewed date:09/17/2024 07:49:06 PM Interpretation: Performing Lab: Notes/Report: [facility] , Color Urine YELLOW YELLOW Clarity Urine CLEAR CLEAR Specific [place] Urine 1.020 1.005-1.025 pH Urine 6.0 5.0-9.0 [...] Performing Lab: see note ML - [facility] LB ECG 12 lead Reviewed date:09/17/2024 07:49:06 PM Interpretation: Performing Lab: Notes/Report: Source Facility: [facility] [place] [address] [place] [address] Electrocardiograph Report Signed Patient: JUAN GARCIA MR#: [id number] : 1990 Acct:[id number] Age/Sex: 34 / F ADM Date: 09/15/24 Loc: ER Attending Dr: Ordering Physician: Leslie Terrazas M.D. Date of Service: 09/15/24 Procedure(s): ECG 12 lead Accession Number(s): [id number] cc: 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 Measurements Intervals [place] Rate: 97 P: 90 HI: 136 QRS: 92 QRSD: 82 T: 18 QT: 356 QTc: 411 Interpretive Statements 1100 Sinus rhythm 4068 Nonspecific Twave abnormality 7102 Moderate right axis deviation Abnormal ECG Compared to ECG 08/29/2024 05:28:41 Right-axis deviation now present Electronically Signed On 09-15-2024 18:32:41 EDT by JAMES HODGES M.D. Dictated By: JAMES HODGES Signed By: 09/15/24 1833 DD/ 1637 TD/TT: Computer Support Analyst: XR chest 1V Reviewed date:09/17/2024 07:49:06 PM Interpretation: Performing Lab: Notes/Report: Source Facility: [place] [address] XRay Report Signed Patient: JUAN GARCIA MR#: [id number] : 1990 Acct:[id number] Age/Sex: 34 / F ADM Date: 09/15/24 Loc: ER Attending Dr: Ordering Physician: Leslie Terrazas M.D. Date of Service: 09/15/24 Procedure(s): XR chest 1V Accession Number(s): [id number] cc: Britt Alas M.D.; Leslie Terrazas M.D. [place] [address] Patient Name: JUAN GARCIA MRN: [id number] date: 1990 Sex: F Assigned Patient Location: ER Current Patient Location: ER Accession/Order Number: [id number] Exam Date: 09/15/2024 17:03 Report Date: 09/15/2024 [...] Lundberg M.D. 09/15/2024 5:04 PM Dictation Location: [place] [address] Electronically authenticated by: [id number] Y Date: 09/15/2024 17:04 Dictated By: Tio Lundberg M.D. Signed By: 09/15/241706 DD/ 03 TD/TT: Computer Support Analyst: CBC AUTO DIFF Reviewed date:11/25/2023 07:16:42 PM Interpretation: Performing Lab: Notes/Report: [facility] , White Blood Count 5.5 4.0-11.0 10 [...] Performing Lab: see note ML - [facility] LB FREE T3 Reviewed date:11/25/2023 07:16:42 PM Interpretation: Performing Lab: Notes/Report: [facility] DROP OFF [facility] , Free T3 2.07 2.18-3.98 pg/mL Performing Lab: see note ML - [facility] LB MAGNESIUM Reviewed date:11/25/2023 07:16:42 PM Interpretation: Performing Lab: Notes/Report: [facility] DROP OFF [facility] , Magnesium 1.9 1.8-2.4 mg/dL Performing Lab: see note - [facility] LB PHOSPHORUS Reviewed date:11/25/2023 07:16:42 PM Interpretation: Performing Lab: Notes/Report: [facility] DR[facility] OFF [facility] , Phosphorus 2.4 2.6-4.7 mg/dL Performing Lab: see note - [facility] LB PROF 14(COMP METB) Reviewed date:11/25/2023 07:16:42 PM Interpretation: Performing Lab: Notes/Report: [facility] DR[facility] OFF [facility] , Sodium 139 136-145 mmol/L Potassium [...] Ratio 1.1 Performing Lab: see note - [facility] LB PROLACTIN Reviewed date:11/26/2023 12:56:46 PM Interpretation: Performing Lab: Notes/Report: [facility] , Prolactin 8.4 4.8-33.4 ng/mL Performing Lab: see note [facility] LB T4 Reviewed date:11/25/2023 07:16:42 PM Interpretation: Performing Lab: Notes/Report: [facility] DROP OFF [facility] , T4 Thyroxine 7.60 4.80-13.90 ug/dL Performing Lab: see note - [facility] LB TSH Reviewed date:11/25/2023 07:16:42 PM Interpretation: Performing Lab: Notes/Report: [facility] DROP OFF [facility] , Thyroid Stimulating Hormone 1.315 0.358-3.740 uIU/mL Performing Lab: see note - [facility] LB Testosterone Reviewed date:11/26/2023 12:56:46 PM Interpretation: Performing Lab: Notes/Report: [facility] , Testosterone <3 8-60 ng/dL Performing Lab: see note [facility] LB Progesterone Reviewed date:11/26/2023 12:56:46 PM Interpretation: Performing Lab: Notes/Report: [facility] , Progesterone <0.1 . ng/mL Follicular phase 0.1 - 0.9 Luteal phase 1.8 - 23.9 Ovulation phase 0.1 - 12.0 First trimester 11.0 - 44.3 Second trimester 25.4 - 83.3 Third trimester 58.7 - 214.0 Postmenopausal 0.0 - 0.1 Performed at: [address] [id number] Roofer Assistant: Daron Almanza PhD, Phone: [phone] Performing Lab: see note [facility] LB FSH Reviewed date:11/26/2023 12:56:46 PM Interpretation: Performing Lab: Notes/Report: [facility] , FSH 3.4 . mIU/mL Adult Female Range Follicular phase 3.5 - 12.5 Ovulation phase 4.7 - 21.5 Luteal phase 1.7 - 7.7 Postmenopausal 25.8 - 134.8 Performing Lab: see note LC - [facility] LB CBC AUTO DIFF Reviewed date:10/29/2024 12:41:46 PM Interpretation: Performing Lab: Notes/Report: [facility] , White Blood Count 3.4 4.0-11.0 10 [...] Performing Lab: see note ML - [facility] LB LIPASE Reviewed date:10/29/2024 12:41:46 PM Interpretation: Performing Lab: Notes/Report: [facility] , Lipase 76.0 16.0-77.0 U/L Performing Lab: see note ML - [facility] LB MAGNESIUM Reviewed date:10/29/2024 12:41:46 PM Interpretation: Performing Lab: Notes/Report: [facility] , Magnesium 1.7 1.8-2.4 mg/dL Performing Lab: see note - [facility] LB PROF 14(COMP METB) Reviewed date:10/29/2024 12:41:46 PM Interpretation: Performing Lab: Notes/Report: [facility] , Sodium 143 136-145 mmol/L Potassium 3.6 [...] 1.2 Performing Lab: see note ML - [facility] LB Estradiol Reviewed date:11/26/2023 12:56:46 PM Interpretation: Performing Lab: Notes/Report: [facility] , Estradiol 170.0 . pg/mL Adult Female Range Follicular phase 12.5 - 166.0 Ovulation phase 85.8 - 498.0 Luteal phase 43.8 - 211.0 Postmenopausal <6.0 - 54.7 1st trimester 215.0 - >4300.0 Kamran ECLIA methodology Performing Lab: see note - [facility] LB Testosterone,Free and Total Reviewed date:12/23/2023 07:44:34 PM Interpretation: Performing Lab: Notes/Report: [facility] DROP OFF [facility] , Testosterone <3 8-60 ng/dL Free Testosterone(Direct) <0.2 0.0-4.2 pg/mL Performed at: [facility] [id number] Roofer Assistant: Daron Almanza PhD, Phone: [phone] Performed at: [facility] [address] [id number] Roofer Assistant: Suhas Ring MD, Phone: [phone] Performing Lab: see note - [facility] LB CBC AUTO DIFF Reviewed date:12/22/2023 09:03:29 PM Interpretation: Performing Lab: Notes/Report: HOME HEALTH ADROP OFF [facility] , White Blood Count 4.9 4.0-11.0 [...] 10 3/uL Performing Lab: see note - [facility] LB GLYCOHEMOGLOBIN A1C Reviewed date:12/22/2023 09:03:29 PM Interpretation: Performing Lab: Notes/Report: HOME HEALTH ADROP OFF [facility] , Glycohemoglobin A1C 4.8 4.5-6.2 % ADA RECOMMENDED LIMIT 4.0 - 6.0 ADA THERAPEUTIC TARGET < 7.0 ACTION SUGGESTED > 7.0 Estimated Average Glucose 91 Performing Lab: see note ML - [facility] LB LAB TESTING Reviewed date:12/31/2023 06:29:26 AM Interpretation: Performing Lab: Notes/Report: [id number] Fatty Acid Profile, Essential [facility] , Miscellaneous Test COMMENT . Test Ordered: [id number] Fatty Acid Profile, Essential Interp, Fatty Acids Profile SP Normal Y8 Reference Range: . Normal fatty acid profile. Results reviewed and interpreted by Doris Odonnell, PhD, [facility] INTERPRETIVE INFORMATION: Fatty Acids Profile, Essential Ser/Plas This test does not screen for disorders of peroxisomal biogenesis/function. This test was developed and its performance characteristics determined by [facility]. It has not been cleared or approved [...] Acid, C18:2w6 3001 nmol/mL Y8 Reference Range: 4150-4276 a-Linolenic Acid, C18:3w3 71 nmol/mL Y8 Reference Range: 20-200 m-d-Gsvjsivdu C20:3w6 198 nmol/mL Y8 Reference Range: 45-340 g-Linolenic Acid, C18:3w6 104 nmol/mL Y8 Reference Range: 10-120 Elkins Acid, C20:3w9 27 nmol/mL Y8 Reference Range: 1-35 Myristic Acid, C14:0 123 nmol/mL Y8 Reference Range: 20-520 Nervonic Acid, C24:1w9 116 nmol/mL Y8 Reference Range: 35-145 Oleic Acid, C18:1w9 2918 nmol/mL Y8 Reference Range: 740-3900 Palmitic Acid, C16:0 3079 nmol/mL Y8 Reference Range: 5366-3544 Palmitoleic Acid, C16:1w7 218 nmol/mL Y8 Reference [...] Range: . Authorized individuals can access the Quarterly Enhanced Report using the following link: [email or web address] [email or web address] . Y8 Reference Range: . Performed at: Y - [facility] [address] [id number] Roofer Assistant: Kirt Murphy [facility], Phone: [phone] Performed at: - [facility] [id number] Roofer Assistant: Daron Almanza PhD, Phone: [phone] Performing Lab: see note - [facility] LB MAGNESIUM Reviewed date:12/22/2023 09:03:29 PM Interpretation: Performing Lab: Notes/Report: HOME HEALTH ADROP OFF [facility] , Magnesium 2.0 1.8-2.4 mg/dL Performing Lab: see note ML - [facility] LB ECG 12 lead Reviewed date:10/30/2024 05:59:55 PM Interpretation: Performing Lab: Notes/Report: Source Facility: 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 Signed By: 10/30/24 1658 DD/ 1256 TD/TT: Computer Support Analyst: PHOSPHORUS Reviewed date:12/22/2023 09:03:29 PM Interpretation: Performing Lab: Notes/Report: HOME HEALTH ADROP OFF [facility] , Phosphorus 2.0 2.6-4.7 mg/dL Performing Lab: see note ML - [facility] LB PROF 14(COMP METB) Reviewed date:12/22/2023 09:03:29 PM Interpretation: Performing Lab: Notes/Report: HOME HEALTH ADROP OFF [facility] , Sodium 142 136-145 mmol/L Potassium 4.2 [...] 1.2 Performing Lab: see note ML - [facility] LB CBC AUTO DIFF Reviewed date:01/06/2024 01:36:15 PM Interpretation: Performing Lab: Notes/Report: [facility] , White Blood Count 5.6 4.0-11.0 [...] 3/uL Performing Lab: see note ML - [facility] LB Testosterone Reviewed date:01/11/2024 02:35:19 PM Interpretation: Performing Lab: Notes/Report: [facility] , Testosterone <3 8-60 ng/dL Performed at: - [facility] [address] [id number] Roofer Assistant: Daron Almanza PhD, Phone: [phone] Performing Lab: see note LC - [facility] LB XR abdomen 1V Reviewed date:01/17/2024 01:32:20 PM Interpretation: Performing Lab: Notes/Report: Source Facility: [place] [address] XRay Report Signed Patient: JUAN GARCIA MR#: [id number] : 1990 Acct:[id number] Age/Sex: 33 / F ADM Date: 01/17/24 Loc: ER Attending Dr: Ordering Physician: Leslie Terrazas M.D. Date of Service: 01/17/24 Procedure(s): XR abdomen 1V Accession Number(s): [id number] cc: Britt Alas M.D.; Leslie Terrazas M.D. [place] [address] Patient Name: JUAN GARCIA MRN: [id number] date: 1990 Sex: F Assigned Patient Location: ER Current Patient Location: ER Accession/Order Number: [id number] Exam Date: 01/17/2024 12:55 Report Date: 01/17/2024 [...] Signed By: 01/17/24 1329 DD/ 25 TD/TT: Computer Support Analyst: CBC AUTO DIFF Reviewed date:01/20/2024 03:46:41 PM Interpretation: Performing Lab: Notes/Report: [facility] , White Blood Count 5.7 4.0-11.0 10 [...] Performing Lab: see note ML - [facility] LB MAGNESIUM Reviewed date:01/20/2024 03:46:41 PM Interpretation: Performing Lab: Notes/Report: [facility] DROP OFF [facility] , Magnesium 1.7 1.8-2.4 mg/dL Performing Lab: see note ML - [facility] LB PHOSPHORUS Reviewed date:01/20/2024 03:46:41 PM Interpretation: Performing Lab: Notes/Report: [facility] DROP OFF [facility] , Phosphorus 3.5 2.6-4.7 mg/dL Performing Lab: see note ML - [facility] LB Troponin I High Sensitivity Reviewed date:11/15/2024 01:03:51 PM Interpretation: Performing Lab: Notes/Report: [facility] , Troponin I High Sensitivity 5.7 4.0-51.3 pg/mL CUT-OFF POINTS HAVE BEEN ESTABLISHED BASED ON THE FOURTH UNIVERSAL DEFINITION OF MYOCARDIAL INFARCTION. THE UPPER REFERENCE LIMIT (URL) OF TROPONIN, DEFINED THE 99TH PERCENTILE OF cTnI DISTRIBUTION IN A REFERENCE POPULATION, HAS BEEN CONFIRMED THE DECISION THRESHOLD FOR MT DIAGNOSIS. 99TH PERCENTILE = 51.4 PG/ML NOTE: HIGH-SENSITIVITY TROPONIN ASSAY IS NOT INTENDED TO BE USED IN ISOLATION BUT SHOULD BE INTERPRETED IN CONJUNCTION WITH OTHER DIAGNOSTIC AND CLINICAL INFORMATION. Performing Lab: see note ML - [facility] LB Troponin I High Sensitivity Reviewed date:10/30/2024 04:08:35 PM Interpretation: Performing Lab: Notes/Report: [facility] , Troponin I High Sensitivity 701.3 4.0-51.3 pg/mL PERCENTILE OF cTnI DISTRIBUTION IN A REFERENCE POPULATION, HAS BEEN CONFIRMED THE DECISION THRESHOLD FOR MT DIAGNOSIS. 99TH PERCENTILE = 51.4 PG/ML NOTE: [...] 99TH Performing Lab: see note ML - [facility] LB HCG Qualitative* Reviewed date:10/30/2024 01:16:30 PM Interpretation: Performing Lab: Notes/Report: [facility] , HCG Qualitative NEGATIVE NEGATIVE Performing Lab: see note ML - [facility] LB Troponin I High Sensitivity Reviewed date:10/30/2024 01:16:30 PM Interpretation: Performing Lab: Notes/Report: [facility] , Troponin I High Sensitivity 42.8 4.0-51.3 pg/mL CUT-OFF POINTS HAVE BEEN ESTABLISHED BASED ON THE FOURTH UNIVERSAL DEFINITION OF MYOCARDIAL INFARCTION. THE UPPER REFERENCE LIMIT (URL) OF TROPONIN, DEFINED THE 99TH PERCENTILE OF cTnI DISTRIBUTION IN A REFERENCE POPULATION, HAS BEEN CONFIRMED THE DECISION THRESHOLD FOR MT DIAGNOSIS. 99TH PERCENTILE = 51.4 PG/ML NOTE: HIGH-SENSITIVITY TROPONIN ASSAY IS NOT INTENDED TO BE USED IN ISOLATION BUT SHOULD BE INTERPRETED IN CONJUNCTION WITH OTHER DIAGNOSTIC AND CLINICAL INFORMATION. Performing Lab: see note ML - [facility] LB PROF 14(COMP METB) Reviewed date:10/30/2024 01:16:30 PM Interpretation: Performing Lab: Notes/Report: [facility] , Sodium 142 136-145 mmol/L Potassium [...] Ratio 1.1 Performing Lab: see note - [facility] LB Blood Culture 2 Reviewed date:10/31/2024 05:15:55 PM Interpretation: Performing Lab: Notes/Report: AEROBIC BOTTLE ONLY [facility] , Blood Culture 2 See Below For Report NG5D NO GROWTH AT 5 DAYS.^NO GROWTH AT 5 DAYS. Blood Culture 2 Performing Lab: see note [facility] LB Blood Culture 1 Reviewed date:10/31/2024 05:15:55 PM Interpretation: Performing Lab: Notes/Report: [facility] , Blood Culture 1 See Below For Report NG5D NO GROWTH AT 5 DAYS.^NO GROWTH AT 5 DAYS. Blood Culture 1 Performing Lab: see note [facility] PROF 14(COMP METB) Reviewed date:01/20/2024 03:46:41 PM Interpretation: Performing Lab: Notes/Report: [facility] DROP OFF [facility] , Sodium 143 136-145 mmol/L Potassium 4.0 [...] Ratio 1.3 Performing Lab: see note - [facility] CBC AUTO DIFF Reviewed date:01/31/2024 02:12:13 PM Interpretation: Performing Lab: Notes/Report: [facility] , White Blood Count 5.3 4.0-11.0 10 [...] Performing Lab: see note ML - [facility] LB FERRITIN Reviewed date:01/31/2024 02:12:13 PM Interpretation: Performing Lab: Notes/Report: [facility] , Ferritin 98.0 8.0-252.0 ng/mL Performing Lab: see note ML - [facility] IRON AND TIBC Reviewed date:01/31/2024 02:12:13 PM Interpretation: Performing Lab: Notes/Report: AARON DROP OFF [facility] , Iron 101.0 50.0-170.0 ug/dL Total Iron Binding Capacity 257.0 250.0-450.0 ug/dL Percent Iron Saturation 39.3 Performing Lab: see note - [facility] LB MAGNESIUM Reviewed date:01/31/2024 02:12:13 PM Interpretation: Performing Lab: Notes/Report: [facility] , Magnesium 1.6 1.8-2.4 mg/dL Performing Lab: see note ML - [facility] LB PHOSPHORUS Reviewed date:01/31/2024 02:12:13 PM Interpretation: Performing Lab: Notes/Report: [facility] , Phosphorus 3.7 2.6-4.7 mg/dL Performing Lab: see note - [facility] LB PROF 14(COMP METB) Reviewed date:01/31/2024 02:12:13 PM Interpretation: Performing Lab: Notes/Report: [facility] , Sodium 141 136-145 mmol/L Potassium 4.0 [...] 1.1 Performing Lab: see note ML - [facility] LB PROF 14(COMP METB) Reviewed date:02/16/2024 03:19:17 PM Interpretation: Performing Lab: Notes/Report: [facility] HEALTH NURSE [facility] , Sodium 142 136-145 mmol/L Potassium [...] Performing Lab: see note ML - [facility] LB CBC AUTO DIFF Reviewed date:03/29/2024 09:46:23 PM Interpretation: Performing Lab: Notes/Report: [facility] , White Blood Count 8.6 4.0-11.0 10 [...] 3/uL Performing Lab: see note ML - [facility] LB MAGNESIUM Reviewed date:03/29/2024 09:46:23 PM Interpretation: Performing Lab: Notes/Report: [facility] , Magnesium 1.8 1.8-2.4 mg/dL Performing Lab: see note - [facility] LB PROF 14(COMP METB) Reviewed date:03/29/2024 09:46:23 PM Interpretation: Performing Lab: Notes/Report: [facility] , Sodium 143 136-145 mmol/L Potassium 3.8 [...] 1.2 Performing Lab: see note ML - [facility] LB TSH Reviewed date:03/29/2024 09:46:23 PM Interpretation: Performing Lab: Notes/Report: [facility] , Thyroid Stimulating Hormone 0.622 0.358-3.740 uIU/mL Performing Lab: see note - [facility] LB CBC AUTO DIFF Reviewed date:03/30/2024 07:56:16 PM Interpretation: Performing Lab: Notes/Report: [facility] , White Blood Count 4.6 4.0-11.0 10 [...] Performing Lab: see note ML - [facility] MAGNESIUM Reviewed date:03/30/2024 07:56:16 PM Interpretation: Performing Lab: Notes/Report: [facility] , Magnesium 1.7 1.8-2.4 mg/dL Performing Lab: see note - [facility] PROF CHEM 8 (BAS METB) Reviewed date:03/30/2024 07:56:16 PM Interpretation: Performing Lab: Notes/Report: [facility] , Sodium 140 136-145 mmol/L Potassium 4.0 [...] Performing Lab: see note ML - [facility] LB AMYLASE Reviewed date:06/21/2024 12:59:38 PM Interpretation: Performing Lab: Notes/Report: [facility] , Amylase 51 25-115 U/L Performing Lab: see note ML - [facility] LB CBC AUTO DIFF Reviewed date:06/21/2024 12:59:38 PM Interpretation: Performing Lab: Notes/Report: [facility] , White Blood Count 5.6 4.0-11.0 10 [...] 3/uL Performing Lab: see note ML - [facility] LB LIPASE Reviewed date:06/21/2024 12:59:38 PM Interpretation: Performing Lab: Notes/Report: [facility] , Lipase 78.0 16.0-77.0 U/L Performing Lab: see note ML - [facility] LB LIVER PROFILE Reviewed date:06/21/2024 12:59:38 PM Interpretation: Performing Lab: Notes/Report: [facility] , Bilirubin Total 0.6 0.2-1.0 mg/dL Bilirubin Direct 0.2 0.0-0.2 mg/dL Aspartate Amino Transferase 22 15-37 U/L Alanine Aminotransferase 27 14-59 U/L Alkaline Phosphatase 62 46-116 U/L Total Protein 6.7 6.4-8.2 g/dL Albumin Level 3.4 3.4-5.0 g/dL Globulin 3.3 Albumin Globulin Ratio 1.0 Performing Lab: see note ML - [facility] LB PROF CHEM 8 (BAS METB) Reviewed date:06/21/2024 12:59:38 PM Interpretation: Performing Lab: Notes/Report: [facility] , Sodium 137 136-145 mmol/L Potassium 3.5 [...] mg/dL Performing Lab: see note ML - [facility] LB HCG Qualitative* Reviewed date:06/21/2024 12:59:38 PM Interpretation: Performing Lab: Notes/Report: [facility] , HCG Qualitative NEGATIVE NEGATIVE Performing Lab: see note ML - [facility] LB ECG 12 lead Reviewed date:06/21/2024 08:02:33 PM Interpretation: Performing Lab: Notes/Report: Source Facility: [facility]-[address] [place] [address] [place] [address] Electrocardiograph Report Signed Patient: JUAN GARCIA MR#: [id number] : 1990 Acct:[id number] Age/Sex: 34 / F ADM Date: 06/21/24 Loc: ER Attending Dr: Ordering Physician: Leslie Terrazas M.D. Date of Service: 06/21/24 Procedure(s): ECG 12 lead Accession Number(s): [id number] cc: 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 Measurements Intervals [place] Rate: 80 P: 54 HI: 140 QRS: 47 QRSD: 80 T: 46 QT: 384 QTc: 420 Interpretive Statements 1100 Sinus rhythm 9110 normal ECG Compared to ECG 09/23/2023 18:36:37 No significant changes Electronically Signed On 06-21-2024 18:14:03 EDT by JAMES HODGES M.D. Dictated By: JAMES HODGES Signed By: 06/21/24 1814 DD/ 1124 TD/TT: Computer Support Analyst: CBC AUTO DIFF Reviewed date:07/22/2024 05:16:36 PM Interpretation: Performing Lab: Notes/Report: [facility] , White Blood Count 6.4 4.0-11.0 10 [...] 3/uL Performing Lab: see note ML - [facility] LB PROF CHEM 8 (BAS METB) Reviewed date:07/22/2024 05:16:36 PM Interpretation: Performing Lab: Notes/Report: [facility] , Sodium 144 136-145 mmol/L Potassium 3.9 [...] 8.5-10.1 mg/dL Performing Lab: see note - [facility] LB CBC AUTO DIFF Reviewed date:08/02/2024 05:29:08 PM Interpretation: Performing Lab: Notes/Report: [facility] , White Blood Count 9.1 4.0-11.0 10 [...] 3/uL Performing Lab: see note ML - [facility] LB LIPASE Reviewed date:08/02/2024 05:29:08 PM Interpretation: Performing Lab: Notes/Report: [facility] , Lipase 66.0 16.0-77.0 U/L Performing Lab: see note ML - [facility] LB PROF 14(COMP METB) Reviewed date:08/02/2024 05:29:08 PM Interpretation: Performing Lab: Notes/Report: [facility] , Sodium 141 136-145 mmol/L Potassium 3.6 [...] Ratio 1.2 Performing Lab: see note - [facility] Troponin I High Sensitivity Reviewed date:08/02/2024 05:29:08 PM Interpretation: Performing Lab: Notes/Report: [facility] , Troponin I High Sensitivity <4.0 4.0-51.3 pg/mL HAS BEEN CONFIRMED THE DECISION THRESHOLD FOR MT DIAGNOSIS. 99TH PERCENTILE = 51.4 PG/ML NOTE: [...] REFERENCE POPULATION, Performing Lab: see note - [facility] LB XR acute abdomen series Reviewed date:08/02/2024 05:29:08 PM Interpretation: Performing Lab: Notes/Report: Source Facility: [place] [address] [place] [address] XRay Report Signed Patient: JUAN GARCIA MR#: [id number] : 1990 Acct:[id number] Age/Sex: 34 / F ADM Date: 08/02/24 Loc: ER Attending Dr: Ordering Physician: Massimo Damon Date of Service: 08/02/24 Procedure(s): XR acute abdomen series Accession Number(s): [id number] cc: Britt Alas M.D.; Massimo Damon The [address] [address] Patient Name: JUAN GARCIA MRN: [id number] date: 1990 Sex: F Assigned Patient Location: ER Current Patient Location: ER Accession/Order Number: [id number] Exam Date: 08/02/2024 09:12 Report Date: 08/02/2024 [...] Hutchinson M.D. 08/02/2024 9:19 AM Dictation Location: [place] [address] Electronically authenticated by: [id number] Y Date: 08/02/2024 09:19 Dictated By: Maricruz Hutchinson M.D. Signed By: 08/02/2422 DD/ 8 TD/TT: Computer Support Analyst: LIPASE Reviewed date:08/02/2024 05:29:08 PM Interpretation: Performing Lab: Notes/Report: [facility] , Lipase 67.0 16.0-77.0 U/L Performing Lab: see note ML - [facility] LB LACTATE or LACTIC ACID Reviewed date:08/02/2024 05:29:08 PM Interpretation: Performing Lab: Notes/Report: Y [facility] , Lactate/Lactic Acid 1.9 0.4-2.0 mmol/L Performing Lab: see note ML - [facility] LB CBC AUTO DIFF Reviewed date:08/15/2024 06:53:10 PM Interpretation: Performing Lab: Notes/Report: [facility] , White Blood Count 12.8 4.0-11.0 [...] 10 3/uL Performing Lab: see note - [facility] LB LIPASE Reviewed date:08/15/2024 06:53:11 PM Interpretation: Performing Lab: Notes/Report: [facility] , Lipase 60.0 16.0-77.0 U/L Performing Lab: see note ML - [facility] PROF 14(COMP METB) Reviewed date:08/15/2024 06:53:11 PM Interpretation: Performing Lab: Notes/Report: [facility] , Sodium 137 136-145 mmol/L Potassium 3.8 [...] Globulin Ratio 0.7 Performing Lab: see note - [facility] Aerobe ID + Suscept Reviewed date:08/21/2024 08:08:02 [...] note - [facility] LB SEE REPORT - Diamond Cleaver Id information not found for OBX-specific senior copywriter legend Anaerobe Identification Only Reviewed date:08/21/2024 08:08:02 PM Interpretation: Performing Lab: Notes/Report: [facility] , Anaerobe Identification Only See Below For Report Anaerobe Identification Only Anaerobe Identification Only Specimen has been received and testing has been initiated. Anaerobe Identification Only Anaerobe Identification Only Anaerobe Identification Only Anaerobe Identification Only No anaerobes recovered. Anaerobe Identification Only Anaerobe Identification Only Performed at: [facility] Anaerobe Identification Only Anaerobe Identification Only [address] [place] [phone] Anaerobe Identification Only Anaerobe Identification Only Roofer Assistant: Daron Almanza PhD, Phone: [phone] Anaerobe Identification Only Performing Lab: see note - [facility] LB SEE REPORT - Diamond Cleaver Id information not found for OBX-specific senior copywriter legend ECG 12 lead Reviewed date:08/16/2024 07:06:02 PM Interpretation: Performing Lab: Notes/Report: Source Facility: [place] [address] [place] [address] Electrocardiograph Report Signed Patient: JUAN GARCIA MR#: [id number] : 1990 Acct:[id number] Age/Sex: 34 / F ADM Date: 08/15/24 Loc: ER Attending Dr: Ordering Physician: Domenica Romeo Date of Service: 08/15/24 Procedure(s): ECG 12 lead Accession Number(s): [id number] cc: 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 Measurements Intervals [place] Rate: 82 P: 45 HI: 142 QRS: 75 QRSD: 84 T: 44 QT: 402 QTc: 440 Interpretive Statements 1100 Sinus rhythm 9110 normal ECG Compared to ECG 06/21/2024 11:24:35 No significant changes Electronically Signed On 08-16-2024 6:37:55 EDT by AJMES HODGES M.D. Dictated By: JAMES HODGES Signed By: 08/16/24 0637 DD/ 1303 TD/TT: Computer Support Analyst: Aerobe ID + Suscept Reviewed date:08/19/2024 07:52:14 [...] Aerobe ID + Suscept [facility] Aerobe ID + Suscept O:GNR Isolated O:KLEBPN Isolated Organism: 1.2 Antibiotic Interpretation SANDHYA Status Aerobe ID + Suscept [address] [place], [place] [id number] Aerobe ID + Suscept O:GNR Isolated O:KLEBPN Isolated Organism: 1.2 Antibiotic Interpretation SANDHYA Status Aerobe ID + Suscept Roofer Assistant: Thierno Almanza PhD, Phone: [phone] Aerobe ID + Suscept O:GNR Isolated O:KLEBPN [...] LC - [facility] LB SEE REPORT - Diamond Cleaver Id information not found for OBX-specific senior copywriter legend Aerobe ID + Suscept Reviewed date:08/19/2024 [...] Status Aerobe ID + Suscept Performed at: [facility] Aerobe ID + Suscept O:GNR Isolated O:KLEBPN Isolated Organism: 1.2 Antibiotic Interpretation SANDHYA Status Aerobe ID + Suscept [address] [place], [place] [id number] Aerobe ID + Suscept O:GNR Isolated O:KLEBPN Isolated Organism: 1.2 Antibiotic Interpretation SANDHYA Status Aerobe ID + Suscept Roofer Assistant: Thierno Almanza PhD, Phone: [phone] Aerobe ID + Suscept O:GNR Isolated O:KLEBPN [...] LC - [facility] LB SEE REPORT - Diamond Cleaver Id information not found for OBX-specific senior copywriter legend CBC AUTO DIFF Reviewed date:08/16/2024 07:06:02 PM Interpretation: Performing Lab: Notes/Report: [facility] , White Blood Count 9.1 4.0-11.0 10 [...] 10 3/uL Performing Lab: see note - [facility] LB LACTATE or LACTIC ACID Reviewed date:08/16/2024 07:06:02 PM Interpretation: Performing Lab: Notes/Report: [facility] , Lactate/Lactic Acid 0.6 0.4-2.0 mmol/L Performing Lab: see note - [facility] PROF 14(COMP METB) Reviewed date:08/16/2024 07:06:02 PM Interpretation: Performing Lab: Notes/Report: [facility] , Sodium 138 136-145 mmol/L Potassium 3.3 [...] Globulin Ratio 0.7 Performing Lab: see note - [facility] LB Aerobe ID + Suscept Reviewed [...] LC - [facility] LB SEE REPORT - Diamond Cleaver Id information not found for OBX-specific senior copywriter legend Aerobe ID + Suscept Reviewed date:08/21/2024 [...] LC - [facility] LB SEE REPORT - Diamond Cleaver Id information not found for OBX-specific senior copywriter legend Aerobe ID + Suscept Reviewed date:08/19/2024 [...] Status Aerobe ID + Suscept Performed at: [facility] Aerobe ID + Suscept O:GNR Isolated O:KLEBPN Isolated Organism: 1.2 Antibiotic Interpretation SANDHYA Status Aerobe ID + Suscept [address] [place], [place] [phone] Aerobe ID + Suscept O:GNR Isolated O:KLEBPN Isolated Organism: 1.2 Antibiotic Interpretation SANDHYA Status Aerobe ID + Suscept Roofer Assistant: Thierno Almazna PhD, Phone: [phone] Aerobe ID + Suscept O:GNR Isolated O:KLEBPN [...] Interpretation SANDYHA Status Aerobe ID + Suscept Piperacillin/Tazobac ta m S F Aerobe ID + Suscept O:GNR Isolated O:KLEBPN Isolated Organism: 1.2 Antibiotic Interpretation SANDHYA Status Performing Lab: see note LC - [facility] LB SEE REPORT - Diamond Cleaver Id information not found for OBX-specific senior copywriter legend Aerobe ID + Suscept Reviewed date:08/19/2024 [...] Status Aerobe ID + Suscept Performed at: [facility] Aerobe ID + Suscept O:GNR Isolated O:KLEBPN Isolated Organism: 1.2 Antibiotic Interpretation SANDHYA Status Aerobe ID + Suscept [address] [place], [place] [phone] Aerobe ID + Suscept O:GNR Isolated O:KLEBPN Isolated Organism: 1.2 Antibiotic Interpretation SANDHYA Status Aerobe ID + Suscept Roofer Assistant: Thierno Almanza PhD, Phone: [phone] Aerobe ID + Suscept O:GNR Isolated O:KLEBPN [...] LC - [facility] LB SEE REPORT - Diamond Cleaver Id information not found for OBX-specific senior copywriter legend LACTATE or LACTIC ACID Reviewed date:08/28/2024 06:06:36 PM Interpretation: Performing Lab: Notes/Report: [facility] , Lactate/Lactic Acid 1.4 0.4-2.0 mmol/L Performing Lab: see note - [facility] LB LIPASE Reviewed date:08/28/2024 06:06:36 PM Interpretation: Performing Lab: Notes/Report: [facility] , Lipase 40.0 16.0-77.0 U/L Performing Lab: see note [facility] LB UA (CLEAN or CATCH) GENERAL CLAIMS AGENT or M ICRO IF IND. Reviewed date:08/28/2024 06:06:36 PM Interpretation: Performing Lab: Notes/Report: [facility] , Color Urine LT. YELLOW YELLOW Clarity Urine CLEAR CLEAR Specific [place] Urine 1.015 1.005-1.025 pH Urine 6.0 5.0-9.0 Protein Urine NEGATIVE NEG/TRACE mg/dL Glucose Urine UA NEGATIVE NEGATIVE mg/dL Bilirubin Urine NEGATIVE NEGATIVE Ketones Urine NEGATIVE NEGATIVE mg/dL Blood Urine NEGATIVE NEGATIVE Nitrite Urine NEGATIVE NEGATIVE Urobilinogen Urine 0.2 0.2-1.0 EU/dL Leukocyte Esterase Urine NEGATIVE NEGATIVE Urine Microscopic Indicated NO Performing Lab: see note - [facility] LB Blood Culture 1 Reviewed date:09/04/2024 07:21:01 PM Interpretation: Performing Lab: Notes/Report: LEFT UPPER ARM [facility] , Blood Culture 1 See Below For Report Blood Culture 1 NG5D NO GROWTH AT 5 DAYS.^NO GROWTH AT 5 DAYS. Performing Lab: see note - [facility] LB Blood Culture 2 Reviewed date:09/04/2024 07:21:01 PM Interpretation: Performing Lab: Notes/Report: KENYETTA WILDE [facility] , Blood Culture 2 See Below For Report NG5D NO GROWTH AT 5 DAYS.^NO GROWTH AT 5 DAYS. Blood Culture 2 Performing Lab: see note - [facility] LB MAGNESIUM Reviewed date:08/31/2024 05:12:17 PM Interpretation: Performing Lab: Notes/Report: [facility] , Magnesium 1.9 1.8-2.4 mg/dL Performing Lab: see note - [facility] LB PROF CHEM 8 (BAS METB) Reviewed date:08/31/2024 05:12:17 PM Interpretation: Performing Lab: Notes/Report: [facility] , Sodium 148 136-145 mmol/L Potassium 3.5 [...] mg/dL Performing Lab: see note ML - [facility] LB CBC no Diff (Hemogram) Reviewed date:08/31/2024 05:12:17 PM Interpretation: Performing Lab: Notes/Report: [facility] , White Blood Count 3.3 4.0-11.0 10 [...] 10.8 9.5-13.5 fL Performing Lab: see note ML - [facility] HCG Qualitative* Reviewed date:08/31/2024 05:12:17 PM Interpretation: Performing Lab: Notes/Report: [facility] , HCG Qualitative NEGATIVE NEGATIVE Performing Lab: see note ML - [facility] LB CA echo doppler complete Reviewed date:09/04/2024 02:45:30 PM Interpretation: Performing Lab: Notes/Report: Source Facility: [facility]-[address] [place] [address] [place] [address] Cardiology Report Signed Patient: JUAN GARCIA MR#: [id number] : 1990 Acct:[id number] Age/Sex: 34 / F ADM Date: 08/28/24 Loc: MS 218-[address]: Kal Wilson M.D. Ordering Physician: Kal Wilson M.D. Date of Service: 09/01/24 Procedure(s): CA echo doppler complete Accession Number(s): [id number] cc: Britt Alas M.D.; Kal Wilson M.D. Patient Name: JUAN GARCIA MR#: [id number] : 1990 Exam Date: 09/01/2024 Ordering Doctor: [...] Area (VTI): 3.35 cm2, 3.28 cm2 Deceleration [place]: Pressure Half-Time: Peak Velocity(Antegrade Flow): 1.25 m/s, [...] MD on 09/03/2024 at 18:20 Approved by: Emiyl Moya MD on 09/03/2024 at 18:25 Dictated By: Emily Moya M.D. Signed By: 09/03/241826 DD/ 24 TD/TT: Computer Support Analyst: CBC AUTO DIFF Reviewed date:09/17/2024 07:49:06 PM Interpretation: Performing Lab: Notes/Report: [facility] , White Blood Count 4.6 4.0-11.0 10 [...] 3/uL Performing Lab: see note ML - [facility] LB LACTATE or LACTIC ACID Reviewed date:09/17/2024 07:49:06 PM Interpretation: Performing Lab: Notes/Report: [facility] , Lactate/Lactic Acid 0.6 0.4-2.0 mmol/L Performing Lab: see note ML - [facility] LB MAGNESIUM Reviewed date:09/17/2024 07:49:06 PM Interpretation: Performing Lab: Notes/Report: [facility] , Magnesium 1.7 1.8-2.4 mg/dL Performing Lab: see note ML - [facility] LB Aerobic Culture Reviewed date:11/24/2023 08:11:28 [...] Interpretation SANDHYA Status Aerobic Culture Performed at: [facility] Aerobic Culture Organism: Gram negative jeffery : O:GNR Isolated O:PSAV Isolated Organism: 1.2 Antibiotic Interpretation SANDHYA Status Aerobic Culture [address] [place], [place] [phone] Aerobic Culture Organism: Gram negative jeffery : O:GNR Isolated O:PSAV Isolated Organism: 1.2 Antibiotic Interpretation SANDHYA Status Aerobic Culture Roofer Assistant: Thierno Almanza PhD, Phone: [phone] Aerobic Culture Organism: Gram negative jeffery : [...] LC - [facility] LB SEE REPORT - Diamond Cleaver Id information not found for OBX-specific senior copywriter legend PROF CHEM 8 (BAS METB) Reviewed date:09/17/2024 07:49:06 PM Interpretation: Performing Lab: Notes/Report: [facility] , Sodium 142 136-145 mmol/L Potassium 3.6 3.5-5.1 mmol/L Chloride 107 98-107 mmol/L Carbon Dioxide 24.5 21.0-32.0 mmol/L Anion Gap 14.1 Glucose 90 74-106 mg/dL Blood Urea Nitrogen 6.0 7.0-18.0 mg/dL Creatinine 0.66 0.55-1.02 mg/dL Estimated GFR ( [place] >60 >=60 mL/min/1.73m 2 Estimated GFR (Non- Caroline >60 >=60 mL/min/1.73m 2 BUN Creatinine Ratio 9.1 Calcium 8.4 8.5-10.1 mg/dL Performing Lab: see note ML - [facility] LB CBC AUTO DIFF Reviewed date:09/20/2024 12:30:47 PM Interpretation: Performing Lab: Notes/Report: [facility] , White Blood Count 5.2 4.0-11.0 10 [...] Performing Lab: see note ML - [facility] LB CRP Reviewed date:09/20/2024 12:30:47 PM Interpretation: Performing Lab: Notes/Report: [facility] , C Reactive Protein <0.50 <=0.50 mg/dL Performing Lab: see note ML - [facility] LB LACTATE or LACTIC ACID Reviewed date:09/20/2024 12:30:47 PM Interpretation: Performing Lab: Notes/Report: [facility] , Lactate/Lactic Acid 0.9 0.4-2.0 mmol/L Performing Lab: see note ML - [facility] LB PROF CHEM 8 ([facility] METB) Reviewed date:09/20/2024 12:30:47 PM Interpretation: Performing Lab: Notes/Report: [facility] , Sodium 145 136-145 mmol/L Potassium 3.7 [...] mg/dL Performing Lab: see note ML - [facility] LB UA Micro, reflex to culture Reviewed date:09/20/2024 12:30:47 PM Interpretation: Performing Lab: Notes/Report: [facility] , Color Urine LT. YELLOW YELLOW Clarity Urine CLEAR CLEAR Specific [place] Urine 1.010 1.005-1.025 pH Urine 6.5 5.0-9.0 [...] Indicated NO Performing Lab: see note - [facility] LB Blood Culture 1 Reviewed date:10/10/2024 07:54:38 PM Interpretation: Performing Lab: Notes/Report: [facility] , Blood Culture 1 See Below For Report Blood Culture 1 NG5D NO GROWTH AT 5 DAYS.^NO GROWTH AT 5 DAYS. Performing Lab: see note - [facility] LB Blood Culture 2 Reviewed date:10/10/2024 07:54:38 PM Interpretation: Performing Lab: Notes/Report: PEDS BOTTLE [facility] , Blood Culture 2 See Below For Report Blood Culture 2 NG5D NO GROWTH AT 5 DAYS.^NO GROWTH AT 5 DAYS. Performing Lab: see note - [facility] LB CBC AUTO DIFF Reviewed date:10/24/2024 02:11:49 PM Interpretation: Performing Lab: Notes/Report: [facility] , White Blood Count 3.6 4.0-11.0 10 [...] Performing Lab: see note ML - [facility] LB CRP Reviewed date:10/24/2024 02:11:49 PM Interpretation: Performing Lab: Notes/Report: [facility] , C Reactive Protein <0.50 <=0.50 mg/dL Performing Lab: see note ML - [facility] PROF CHEM 8 (BAS METB) Reviewed date:10/24/2024 02:11:49 PM Interpretation: Performing Lab: Notes/Report: [facility] , Sodium 141 136-145 mmol/L Potassium 3.7 [...] Performing Lab: see note ML - [facility] LB UA RANDOM W or MICROSCOPIC Reviewed date:10/24/2024 02:11:49 PM Interpretation: Performing Lab: Notes/Report: [facility] , Color Urine LT. YELLOW YELLOW Clarity Urine CLEAR CLEAR Specific [place] Urine <=1.005 1.005-1.025 pH Urine 6.0 5.0-9.0 [...] Indicated NO Performing Lab: see note - [facility] HCG Qualitative* Reviewed date:10/29/2024 12:41:46 PM Interpretation: Performing Lab: Notes/Report: [facility] , HCG Qualitative NEGATIVE NEGATIVE Performing Lab: see note - [facility] PTT Reviewed date:10/30/2024 02:53:54 PM Interpretation: Performing Lab: Notes/Report: [facility] , Partial Thromboplastin Time 28.6 22.3-36.2 sec Performing Lab: see note - [facility] Prothrombin Time INR Reviewed date:10/30/2024 02:53:54 PM Interpretation: Performing Lab: Notes/Report: [facility] , Prothrombin Time 11.4 9.0-11.6 sec INR 1.08 DESIRED INR: 2.0-3.0 CONDITIONS NOT LISTED BELOW 2.5-3.5 FOR PROSTHETIC HEART VALVE REPLACEMENT 2.5-3.5 RECURRENT THROMBOSIS Performing Lab: see note - [facility] ECG 12 lead Reviewed date:10/30/2024 05:59:55 PM Interpretation: Performing Lab: Notes/Report: Source Facility: [facility]-[address] [place] [address] [place] [address] Electrocardiograph Report Signed Patient: JUAN GARCIA MR#: [id number] : 1990 Acct:[id number] Age/Sex: 34 / F ADM Date: 10/30/24 Loc: ER Attending Dr: Ordering Physician: Barbara Willoughby Date of Service: 10/30/24 Procedure(s): ECG 12 lead Accession Number(s): [id number] cc: 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 Signed By: 10/30/24 1654 DD/ 1015 TD/TT: Computer Support Analyst: XR chest 1V Reviewed date:10/30/2024 01:16:30 PM Interpretation: Performing Lab: Notes/Report: Source Facility: [place] [address] XRay Report Signed Patient: JUAN GARCIA MR#: [id number] : 1990 Acct:[id number] Age/Sex: 34 / F ADM Date: Loc: ER Attending Dr: Ordering Physician: Barbara Willoughby Date of Service: 10/30/24 Procedure(s): XR chest 1V Accession Number(s): [id number] cc: Britt Alas M.D.; Barbara Willoughby [place] [address] Patient Name: JUAN GARCIA MRN: [id number] date: 1990 Sex: F Assigned Patient Location: ED.MAIN Current Patient Location: ED.MAIN Accession/Order Number: [id number] Exam Date: 10/30/2024 10:20 Report Date: 10/30/2024 [...] Hutchinson M.D. 10/30/2024 10:45 AM Dictation Location: [place] [address] Electronically authenticated by: [id number] Y Date: 10/30/2024 10:45 Dictated By: Maricruz Hutchinson M.D. Signed By: 10/30/24 1048 DD/ 1045 TD/TT: Computer Support Analyst: Troponin I High Sensitivity Reviewed date:10/30/2024 01:16:30 PM Interpretation: Performing Lab: Notes/Report: [facility] , Troponin I High Sensitivity 390.6 4.0-51.3 pg/mL RESULTS CALLED TO HENNY SHAH at 1252 CUT-OFF POINTS HAVE BEEN ESTABLISHED BASED ON THE FOURTH UNIVERSAL DEFINITION OF MYOCARDIAL INFARCTION. THE UPPER REFERENCE LIMIT (URL) OF TROPONIN, DEFINED THE 99TH PERCENTILE OF cTnI DISTRIBUTION IN A REFERENCE POPULATION, HAS BEEN CONFIRMED THE DECISION THRESHOLD FOR MT DIAGNOSIS. 99TH PERCENTILE = 51.4 PG/ML NOTE: HIGH-SENSITIVITY TROPONIN ASSAY IS NOT INTENDED TO BE USED IN ISOLATION BUT SHOULD BE INTERPRETED IN CONJUNCTION WITH OTHER DIAGNOSTIC AND CLINICAL INFORMATION. Performing Lab: see note ML - [facility] LB CBC AUTO DIFF Reviewed date:11/14/2024 04:56:23 PM Interpretation: Performing Lab: Notes/Report: [facility] , White Blood Count 3.6 4.0-11.0 10 [...] Performing Lab: see note ML - [facility] LB LIVER PROFILE Reviewed date:11/15/2024 01:03:51 PM Interpretation: Performing Lab: Notes/Report: [facility] , Bilirubin Total 0.4 0.2-1.0 mg/dL Bilirubin Direct 0.1 0.0-0.2 mg/dL Aspartate Amino Transferase 32 15-37 U/L Alanine Aminotransferase 20 14-59 U/L Alkaline Phosphatase 73 46-116 U/L Total Protein 6.2 6.4-8.2 g/dL Albumin Level 2.9 3.4-5.0 g/dL Globulin 3.3 Albumin Globulin Ratio 0.9 Performing Lab: see note ML - [facility] LB PROF CHEM 8 (BAS METB) Reviewed date:11/14/2024 04:56:23 PM Interpretation: Performing Lab: Notes/Report: [facility] , Sodium 144 136-145 mmol/L Potassium 3.8 3.5-5.1 mmol/L Chloride 108 98-107 mmol/L Carbon Dioxide 25.3 21.0-32.0 mmol/L Anion Gap 14.5 Glucose 86 74-106 mg/dL Blood Urea Nitrogen 12.0 7.0-18.0 mg/dL Creatinine 0.73 0.55-1.02 mg/dL Estimated GFR ( Shelby >60 >=60 mL/min/1.73m 2 Estimated GFR (Non- Caroline >60 >=60 mL/min/1.73m 2 BUN Creatinine Ratio 16.4 Calcium 7.9 8.5-10.1 mg/dL Performing Lab: see note ML - [facility] LB Troponin I High Sensitivity Reviewed date:11/14/2024 04:56:23 PM Interpretation: Performing Lab: Notes/Report: [facility] , Troponin I High Sensitivity 5.6 4.0-51.3 pg/mL CUT-OFF POINTS HAVE BEEN ESTABLISHED BASED ON THE FOURTH UNIVERSAL DEFINITION OF MYOCARDIAL INFARCTION. THE UPPER REFERENCE LIMIT (URL) OF TROPONIN, DEFINED THE 99TH PERCENTILE OF cTnI DISTRIBUTION IN A REFERENCE POPULATION, HAS BEEN CONFIRMED THE DECISION THRESHOLD FOR MT DIAGNOSIS. 99TH PERCENTILE = 51.4 PG/ML NOTE: HIGH-SENSITIVITY TROPONIN ASSAY IS NOT INTENDED TO BE USED IN ISOLATION BUT SHOULD BE INTERPRETED IN CONJUNCTION WITH OTHER DIAGNOSTIC AND CLINICAL INFORMATION. Performing Lab: see note ML - [facility] LB MAGNESIUM Reviewed date:01/06/2024 01:36:15 PM Interpretation: Performing Lab: Notes/Report: [facility] , Magnesium 1.7 1.8-2.4 mg/dL Performing Lab: see note ML - [facility] LB PHOSPHORUS Reviewed date:01/06/2024 01:36:15 PM Interpretation: Performing Lab: Notes/Report: [facility] , Phosphorus 3.3 2.6-4.7 mg/dL Performing Lab: see note - [facility] LB PROF 14(COMP METB) Reviewed date:01/06/2024 01:36:15 PM Interpretation: Performing Lab: Notes/Report: [facility] , Sodium 140 136-145 mmol/L Potassium [...] 1.2 Performing Lab: see note ML - [facility] LB ECG 12 lead Reviewed date:11/15/2024 01:03:51 PM Interpretation: Performing Lab: Notes/Report: Source Facility: [place] [address] Electrocardiograph Report Signed Patient: JUAN GARCIA MR#: [id number] : 1990 Acct:[id number] Age/Sex: 34 / F ADM Date: 11/14/24 Loc: ER Attending Dr: Ordering Physician: Otilio Klein Date of Service: 11/14/24 Procedure(s): ECG 12 lead Accession Number(s): [id number] cc: [facility] Test Date: 2024-11-14 Pat Name: JUAN GARCIA Department: Room: - 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 Measurements Intervals [place] Rate: 69 P: 76 HI: 154 QRS: 80 QRSD: 90 T: 84 QT: 402 QTc: 420 Interpretive Statements 1100 Sinus rhythm 9110 normal ECG Compared to ECG 10/30/2024 15:31:37 No significant changes Electronically Signed On 11-14-2024 20:01:07 EDT by JAMES HODGES M.D. Dictated By: JAMES HODGES Signed By: 11/14/24200011/14/242000 DD/ 22 TD/TT: Computer Support Analyst: XR acute abdomen series Reviewed date:01/12/2024 05:28:40 PM Interpretation: Performing Lab: Notes/Report: Source Facility: [place] [address] XRay Report Signed Patient: JUAN GARCIA MR#: [id number] : 1990 Acct:[id number] Age/Sex: 33 / F ADM Date: 01/10/24 Loc: LAB Attending Dr: Britt Alas M.D. Ordering Physician: Britt Alas M.D. Date of Service: 01/10/24 Procedure(s): XR acute abdomen series Accession Number(s): [id number] cc: Britt Alas M.D. [place] [address] Patient Name: JUAN GARCIA MRN: [id number] date: 1990 Sex: F Assigned Patient Location: LAB Current Patient Location: Accession/Order Number: [id number] Exam Date: 01/10/2024 10:06 Report Date: 01/12/2024 [...] Signed By: 01/12/24 1448 DD/ 44 TD/TT: Computer Support Analyst: XR chest 2V Reviewed date:11/15/2024 01:03:51 PM Interpretation: Performing Lab: Notes/Report: Source Facility: [place] [address] XRay Report Signed Patient: JUAN GARCIA MR#: [id number] : 1990 Acct:[id number] Age/Sex: 34 / F ADM Date: 11/14/24 Loc: ER Attending Dr: Ordering Physician: Otilio Klein Date of Service: 11/14/24 Procedure(s): XR chest 2V Accession Number(s): [id number] cc: Britt Alas M.D.; Otilio Klein [place] [address] Patient Name: JUAN GARCIA MRN: [id number] date: 1990 Sex: F Assigned Patient Location: ED.MAIN Current Patient Location: ED.MAIN Accession/Order Number: [id number] Exam Date: 11/14/2024 16:48 Report Date: 11/14/2024 17:27 At the request of: OTILIO KLEIN DO Procedure: XR chest 2V Plain film chest 2 view HISTORY: Chest pain COMPARISON: 10/30/2024 FINDINGS: SUPPORT DEVICES: Central line tip overlies distal SVC. POSTSURGICAL CHANGES: None HEART: Within normal limits PULMONARY KATHRYN: Within normal limits MEDIASTINUM: Unremarkable LUNGS AND PLEURA: No acute lung process, pleural effusion or pneumothorax identified. BONY STRUCTURES: Intact ADDITIONAL FINDINGS None XR/XR chest 2V IMPRESSION: No acute process. Impression dictated by: Massimo Davis M.D. 11/14/2024 5:27 PM Dictation Location: [place] [address] Electronically authenticated by: [id number] Y Date: 11/14/2024 17:27 Dictated By: Massimo Davis D.O. Signed By: 11/14/241729 DD/ 26 TD/TT: Computer Support Analyst: CT angio chest Reviewed date:11/15/2024 01:03:51 PM Interpretation: Performing Lab: Notes/Report: Source Facility: [place] [address] CT Scan Report Signed Patient: JUAN GARCIA MR#: [id number] : 1990 Acct:[id number] Age/Sex: 34 / F ADM Date: 11/14/24 Loc: ER Attending Dr: Ordering Physician: Otilio Klein Date of Service: 11/14/24 Procedure(s): CT angio chest Accession Number(s): [id number] cc: Britt Alas M.D. [place] [address] Patient Name: JUAN GARCIA MRN: [id number] date: 1990 Sex: F Assigned Patient Location: ED.MAIN Current Patient Location: ED.MAIN Accession/Order Number: [id number] Exam Date: 11/14/2024 18:33 Report Date: 11/14/2024 19:14 At the request of: OTILIO KLEIN DO Procedure: CT angio abdomen pelvis Cta Chest, Abdomen and Pelvis TECHNIQUE: Axial imaging with 2-D reconstruction. The CT exam was performed using one or more the following dose reduction techniques: Automated exposure control, adjustment of the MA and/or Kv according to patient size, or use of the iterative reconstruction technique. History: Chest pain today. Extending into the back between shoulder blades. History of heart catheterization with removal of hematoma. History of coronary artery dissection. COMPARISON: 06/28/2023 THYROID: No significant thyroid abnormality identified. AIRWAY: Central airway is patent. ESOPHAGUS: Esophagus normal course and caliber. HEART: Heart is not enlarged. PERICARDIAL EFFUSION: Minimal CORONARY ARTERY CALCIFICATION: None MEDIASTINUM: Nonenlarged mediastinal lymph nodes identified. HILAR REGION: No hilar mass or adenopathy is seen. THORACIC AORTA: No thoracic aortic aneurysm or dissection. No atherosclerosis LUNG INTERSTITIUM: No infiltrate or congestion identified. PLEURAL EFFUSION No pleural effusion identified. PNEUMOTHORAX: No pneumothorax seen. LUNG NODULE: No lung nodules identified. CHEST WALL: No chest wall abnormality seen. The bony chest intact. LIVER: Cystic changes hepatic steatosis GALLBLADDER: Cholecystectomy BILE DUCTS: Mild complex inflammatory dilatation of the common bile duct. SPLEEN: Normal PANCREAS: Unremarkable ADRENAL GLANDS: The adrenal glands are unremarkable. KIDNEYS: Unremarkable ABDOMINAL AORTA: No dissection or aneurysm of the aorta or aortic branches. RETROPERITONEUM: No significant retroperitoneal abnormalities identified. STOMACH:Gastric surgery changes SMALL BOWEL: The small bowel loops are nondistended. APPENDIX: The appendix is normal. COLON: There is no colitis or diverticulitis. URINARY BLADDER: Urinary bladder is unremarkable. REPRODUCTIVE STRUCTURES: The reproductive structures are unremarkable. FREE AIR: None FREE FLUID: None ABDOMINAL WALL: Inflammatory changes and minimal hematoma noted in the right inguinal region consistent with recent catheterization. INGUINAL HERNIA: None BONES:Degenerative changes CT/CT angio chest IMPRESSION: No aortic aneurysm or dissection. No acute chest or abdominal pelvic findings. PRELIMINARY RESULTS: None given Impression dictated by: Massimo Davis M.D. 11/14/2024 7:14 PM Dictation Location: [place] [address] Electronically authenticated by: [id number] Y Date: 11/14/2024 19:14 Dictated By: Massimo Davis D.O. Signed By: 11/14/241916 DD/ 13 TD/TT: Computer Support Analyst: CT angio abdomen pelvis Reviewed date:11/15/2024 01:03:51 PM Interpretation: Performing Lab: Notes/Report: Source Facility: [facility]-[address] [place] [address] [place] [address] CT Scan Report Signed Patient: JUAN GARCIA MR#: [id number] : 1990 Acct:[id number] Age/Sex: 34 / F ADM Date: 11/14/24 Loc: ER Attending Dr: Ordering Physician: Otilio Klein Date of Service: 11/14/24 Procedure(s): CT angio abdomen pelvis Accession Number(s): [id number] cc: Britt Alas M.D. [place] [id number] Patient Name: JUAN GARCIA MRN: [id number] date: 1990 Sex: F Assigned Patient Location: ED.MAIN Current Patient Location: ED.MAIN Accession/Order Number: [id number] Exam Date: 11/14/2024 18:33 Report Date: 11/14/2024 19:14 At the request of: OTILIO KLEIN DO Procedure: CT angio abdomen pelvis Cta Chest, Abdomen and Pelvis TECHNIQUE: Axial imaging with 2-D reconstruction. The CT exam was performed using one or more the following dose reduction techniques: Automated exposure control, adjustment of the MA and/or Kv according to patient size, or use of the iterative reconstruction technique. History: Chest pain today. Extending into the back between shoulder blades. History of heart catheterization with removal of hematoma. History of coronary artery dissection. COMPARISON: 06/28/2023 THYROID: No significant thyroid abnormality identified. AIRWAY: Central airway is patent. ESOPHAGUS: Esophagus normal course and caliber. HEART: Heart is not enlarged. PERICARDIAL EFFUSION: Minimal CORONARY ARTERY CALCIFICATION: None MEDIASTINUM: Nonenlarged mediastinal lymph nodes identified. HILAR REGION: No hilar mass or adenopathy is seen. THORACIC AORTA: No thoracic aortic aneurysm or dissection. No atherosclerosis LUNG INTERSTITIUM: No infiltrate or congestion identified. PLEURAL EFFUSION No pleural effusion identified. PNEUMOTHORAX: No pneumothorax seen. LUNG NODULE: No lung nodules identified. CHEST WALL: No chest wall abnormality seen. The bony chest intact. LIVER: Cystic changes hepatic steatosis GALLBLADDER: Cholecystectomy BILE DUCTS: Mild complex inflammatory dilatation of the common bile duct. SPLEEN: Normal PANCREAS: Unremarkable ADRENAL GLANDS: The adrenal glands are unremarkable. KIDNEYS: Unremarkable ABDOMINAL AORTA: No dissection or aneurysm of the aorta or aortic branches. RETROPERITONEUM: No significant retroperitoneal abnormalities identified. STOMACH:Gastric surgery changes SMALL BOWEL: The small bowel loops are nondistended. APPENDIX: The appendix is normal. COLON: There is no colitis or diverticulitis. URINARY BLADDER: Urinary bladder is unremarkable. REPRODUCTIVE STRUCTURES: The reproductive structures are unremarkable. FREE AIR: None FREE FLUID: None ABDOMINAL WALL: Inflammatory changes and minimal hematoma noted in the right inguinal region consistent with recent catheterization. INGUINAL HERNIA: None BONES:Degenerative changes CT/CT angio abdomen pelvis IMPRESSION: No aortic aneurysm or dissection. No acute chest or abdominal pelvic findings. PRELIMINARY RESULTS: None given Impression dictated by: Massimo Davis M.D. 11/14/2024 7:14 PM Dictation Location: [place] [address] Electronically authenticated by: [id number] Y Date: 11/14/2024 19:14 Dictated By: Massimo Davis D.O. Signed By: 11/14/241916 DD/ 13 TD/TT: Computer Support Analyst: CBC AUTO DIFF Reviewed date:10/30/2024 01:16:30 PM Interpretation: Performing Lab: Notes/Report: [facility] , White Blood Count 4.5 4.0-11.0 10 [...] 10 3/uL Performing Lab: see note - [facility] LB Transferrin Reviewed date:02/01/2024 12:16:29 PM Interpretation: Performing Lab: Notes/Report: [facility] , Transferrin 210 192-364 mg/dL Performed at: [facility] [address] [id number] Roofer Assistant: Daron Almanza PhD, Phone: [phone] Performing Lab: see note - [facility] LB CBC AUTO DIFF Reviewed date:02/16/2024 03:19:17 PM Interpretation: Performing Lab: Notes/Report: [facility] , White Blood Count 7.7 4.0-11.0 10 [...] 10 3/uL Performing Lab: see note - [facility] LB XR chest 2V Reviewed date:08/28/2024 06:06:36 PM Interpretation: Performing Lab: Notes/Report: Source Facility: [facility]-[address] [place] [address] [place] [address] XRay Report Signed Patient: JUAN GARCIA MR#: [id number] : 1990 Acct:[id number] Age/Sex: 34 / F ADM Date: 08/28/24 Loc: ER Attending Dr: Ordering Physician: Domenica Romeo Date of Service: 08/28/24 Procedure(s): XR chest 2V Accession Number(s): [id number] cc: Domenica Romeo; Britt Alas M.D. [place] [address] Patient Name: JUAN GARCIA MRN: [id number] date: 1990 Sex: F Assigned Patient Location: ER Current Patient Location: ER Accession/Order Number: [id number] Exam Date: 08/28/2024 16:39 Report Date: 08/28/2024 16:40 At the request of: DOMENICA ROMEO PROFESSIONAL WRESTLER Procedure: XR chest 2V XR chest 2V [...] Hutchinson M.D. 08/28/2024 4:40 PM Dictation Location: [place] [address] Electronically authenticated by: [id number] Y Date: 08/28/2024 16:40 Dictated By: Roddy Hutchinson M.D. Signed By: 08/28/24 1642 DD/ 1640 TD/TT: Computer Support Analyst: ECG 12 lead Reviewed date:08/30/2024 05:17:51 PM Interpretation: Performing Lab: Notes/Report: Source Facility: [facility]-[address] [place] [address] [place] [address] Electrocardiograph Report Signed Patient: JUAN GARCIA MR#: [id number] : 1990 Acct:[id number] Age/Sex: 34 / F ADM Date: 08/28/24 Loc: MS 218-[address]: Kal Wilson M.D. Ordering Physician: Domenica Romeo Date of Service: 08/28/24 Procedure(s): ECG 12 lead Accession Number(s): [id number] cc: 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1990 Requested By: [id number] Order Number: [id number] Reading MD: KATIE ALTAMIRANO Measurements Intervals [place] Rate: 131 P: 99 HI: 124 QRS: 97 QRSD: 78 T: 68 [...] Signed By: 08/30/24 1325 DD/ 1420 TD/TT: Computer Support Analyst: Anaerobe Identification Only Reviewed date:09/04/2024 07:21:01 PM [...] FOLLOW Anaerobe Identification Only [facility] Anaerobe Identification Only WILL FOLLOW Anaerobe Identification Only [address] [place], [place] [id number] Anaerobe Identification Only WILL FOLLOW Anaerobe Identification Only Roofer Assistant: Daron Almanza PhD, Phone: [phone] Anaerobe Identification Only WILL FOLLOW Performing Lab: see note LC - [facility] LB SEE REPORT - Diamond Cleaver Id information not found for OBX-specific senior copywriter legend Aerobe ID + Suscept Reviewed date:09/02/2024 02:54:42 [...] Status Aerobe ID + Suscept Performed at: [facility] Aerobe ID + Suscept Organism: Gram negative jeffery : O:GNR Isolated O:KLEBPN Isolated Organism: 1.2 Antibiotic Interpretation SANDHYA Status Aerobe ID + Suscept [id number] [place], [place] [id number] Aerobe ID + Suscept Organism: Gram negative jeffery : O:GNR Isolated O:KLEBPN Isolated Organism: 1.2 Antibiotic Interpretation SANDHYA Status Aerobe ID + Suscept Roofer Assistant: Thierno Almanza PhD, Phone: [phone] Aerobe ID + Suscept Organism: Gram negative [...] LC - [facility] LB SEE REPORT - Diamond Cleaver Id information not found for OBX-specific senior copywriter legend Manual Differential Reviewed date:08/28/2024 06:06:36 PM Interpretation: Performing Lab: Notes/Report: [facility] , Segmented Neutrophils % Manual 86.0 43.0-75.0 [...] 3/uL Performing Lab: see note ML - [facility] LB DRUG SCREEN RAPID (URINE) Reviewed date:08/28/2024 06:06:36 PM Interpretation: Performing Lab: Notes/Report: [facility] , Cannabinoid Screen Urine NEGATIVE NEGATIVE [...] ng/mL Performing Lab: see note ML - [facility] LB BLOOD CULTURE ID PANEL Reviewed date:08/29/2024 05:13:56 PM Interpretation: Performing Lab: Notes/Report: [facility] , CTX-M NOT DETECTED NOT DETECTE [...] DETECTE Performing Lab: see note ML - [facility] LB UA Micro, reflex to culture Reviewed date:08/02/2024 05:29:08 PM Interpretation: Performing Lab: Notes/Report: [facility] , Color Urine LT. YELLOW YELLOW Clarity Urine CLEAR CLEAR Specific [place] Urine <=1.005 1.005-1.025 pH Urine 6.5 5.0-9.0 [...] Indicated NO Performing Lab: see note - [facility] LB HCG Qualitative Urine Reviewed date:08/02/2024 05:29:08 PM Interpretation: Performing Lab: Notes/Report: [facility] , HCG Qualitative Urine* NEGATIVE NEGATIVE Performing Lab: see note - [facility] LB BLOOD CULTURE ID PANEL Reviewed date:08/16/2024 07:06:02 PM Interpretation: Performing Lab: Notes/Report: [facility] , CTX-M NOT DETECTED NOT DETECTE [...] DETECTE Performing Lab: see note ML - [facility] ECG 12 lead Reviewed date:10/30/2024 05:59:55 PM Interpretation: Performing Lab: Notes/Report: Source Facility: [place] [address] Electrocardiograph Report Signed Patient: JUAN GARCIA MR#: [id number] : 1990 Acct:[id number] Age/Sex: 34 / F ADM Date: 10/30/24 Loc: ER Attending Dr: Ordering Physician: Barbara Willoughby Date of Service: 10/30/24 Procedure(s): ECG 12 lead Accession Number(s): [id number] cc: [facility] Test Date: 2024-10-30 Pat Name: JUAN GARCIA Department: Room: - 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 Signed By: 10/30/24 1701 DD/ 1531 TD/TT: Computer Support Analyst: ECG 12 lead Reviewed date:10/26/2024 07:01:06 PM Interpretation: Performing Lab: Notes/Report: Source Facility: [place] [address] [place] [address] Electrocardiograph Report Signed Patient: JUAN GARCIA MR#: [id number] : 1990 Acct:[id number] Age/Sex: 34 / F ADM Date: 10/24/24 Loc: ER Attending Dr: Ordering Physician: Leslie Terrazas M.D. Date of Service: 10/24/24 Procedure(s): ECG 12 lead Accession Number(s): [id number] cc: [facility] Test Date: 2024-10-24 Pat Name: JUAN GARCIA Department: Room: - Gender: Female Sales Estimator: CRUZ: 1990 Requested By: [id number] Order Number: [id number] Reading MD: KATIE ALTAMIRANO Measurements Intervals [place] Rate: 87 P: 55 HI: 114 QRS: 88 QRSD: 78 T: 39 QT: 384 QTc: 428 Interpretive Statements 1100 Sinus rhythm 2210 Short HI interval 9150 abnormal ECG Compared to ECG 09/15/2024 16:37:37 Short HI interval now present Right-axis deviation no longer present Electronically Signed On 10-26-2024 13:33:01 EDT by KATIE ALTAMIRANO Dictated By: Katie Altamirano M.D. Signed By: 10/26/243 10/26/24 1333 DD/ 0943 TD/TT: Computer Support Analyst: ECG 12 lead Reviewed date:08/30/2024 05:17:51 PM Interpretation: Performing Lab: Notes/Report: Source Facility: [facility]-[address] [place] [address] [place] [address] Electrocardiograph Report Signed Patient: JUAN GARCIA MR#: [id number] : 1990 Acct:[id number] Age/Sex: 34 / F ADM Date: 08/28/24 Loc: MS 218-[address]: Kal Wilson M.D. Ordering Physician: Kal Wilson M.D. Date of Service: 08/29/24 Procedure(s): ECG 12 lead Accession Number(s): [id number] cc: 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 Signed By: 08/30/24 1330 DD/ 0528 TD/TT: Computer Support Analyst: PROF Hickey(COMP METB) Reviewed date:08/29/2024 05:13:56 PM Interpretation: Performing Lab: Notes/Report: [facility] , Sodium 144 136-145 mmol/L Potassium [...] 0.7 Performing Lab: see note ML - [facility] LB PHOSPHORUS Reviewed date:08/29/2024 05:13:55 PM Interpretation: Performing Lab: Notes/Report: [facility] , Phosphorus 2.8 2.6-4.7 mg/dL Performing Lab: see note - [facility] LB MAGNESIUM Reviewed date:08/29/2024 05:13:55 PM Interpretation: Performing Lab: Notes/Report: [facility] , Magnesium 1.7 1.8-2.4 mg/dL Performing Lab: see note ML - [facility] LB CBC AUTO DIFF Reviewed date:08/29/2024 05:13:55 PM Interpretation: Performing Lab: Notes/Report: [facility] , White Blood Count 5.8 4.0-11.0 10 [...] Performing Lab: see note ML - [facility] LB Aerobe ID + Suscept Reviewed date:09/04/2024 07:21:01 [...] Cefoxitin S F Organism: 1.2 Antibiotic Interpretation SADNHYA Status Aerobe ID + Suscept Organism: Gram [...] Meropenem S F Organism: 1.2 Antibiotic Interpretation ASNDHYA Status Aerobe ID + Suscept Organism: Gram [...] LC - [facility] LB SEE REPORT - Diamond Cleaver Id information not found for OBX-specific senior copywriter legend CT abdomen pelvis w con Reviewed date:08/28/2024 06:06:36 PM Interpretation: Performing Lab: Notes/Report: Source Facility: [place] [address] CT Scan Report Signed Patient: JUAN GARCIA MR#: [id number] : 1990 Acct:[id number] Age/Sex: 34 / F ADM Date: 08/28/24 Loc: ER Attending Dr: Ordering Physician: Domenica Romeo Date of Service: 08/28/24 Procedure(s): CT abdomen pelvis w con Accession Number(s): [id number] cc: Britt Alas M.D. [place] [address] Patient Name: JUAN GARCIA MRN: [id number] date: 1990 Sex: F Assigned Patient Location: ER Current Patient Location: ER Accession/Order Number: [id number] Exam Date: 08/28/2024 16:40 Report Date: 08/28/2024 16:46 At the request of: DOMENICA ROMEO PROFESSIONAL WRESTLER Procedure: CT abdomen pelvis w con CT [...] Hutchinson M.D. 08/28/2024 4:46 PM Dictation Location: [place] [address] Electronically authenticated by: [id number] Y Date: 08/28/2024 16:46 Dictated By: Roddy Hutchinson M.D. Signed By: 08/28/24 1649 DD/ 45 TD/TT: Computer Support Analyst: Reason For Referral No Information Medications Medication SIG (Take, Route, Frequency, Duration) [...] 30 days 10/14/2023 Active [employer] 3 [employer] Use to monitor glucose levels multiple times daily DX Diabetes with hypoglycemic episodes; Duration: 365 days 10/14/2023 Active Jaeskcggfy-IWXT-Vvkfenc e 50-325-40 MG TAKE 1 TABLET BY [...] Once a day; Duration: 30 days Active [employer] Ultra 2 w/Device USE TO MONITOR BLOOD [...] Status W/U Status Risk Notes Problem Gastroparesis (631388548) Gastroparesis (K31.84) Active confirmed Problem Postgastric surgery syndrome (99097193) 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) Active confirmed Problem Asthma (301483607) Asthma (J45.909) Active conf irmed Problem Gastroesophageal reflux disease (188437955) GERD (gastroesophageal reflux disease) (K21.9) Active confirmed Problem Hypothyroidism (40858053) Hypothyroidism (E03.9) Active confirmed Problem Coronary artery disease (93072312) CAD (coronary artery disease) (I25.10) Active confirmed Problem Anxiety (06371071) Anxiety (F41.9) Active confi rmed Problem Migraine (42458338) Migraine (G43.909) Active confirmed Problem Irritable bowel syndrome (35838557) IBS (irritable bowel syndrome) (K58.9) Active confirmed Problem Generalized anxiety disorder (84612649) EDWAR (generalized anxiety disorder) (F41.1) Active confirmed Problem Lumbar radiculopathy (175262999) Lumbar radiculopathy (M54.16) Active confirmed Problem Allergic conjunctivitis (584463842) Allergic conjunctivitis (H10.10) Active confirmed Problem Acquired hypothyroidism (113053839) Acquired hypothyroidism (E03.9) Active confirmed Problem Hypoglycemia (734808801) Hypoglycemia (E16.2) Active confirmed Problem Anxiety disorder (751055637) Anxiety disorder (F41.9) Active confirmed Problem Neutropenia (990838120) Neutropenia (D70.9) Active confirmed Problem Sepsis (40729279) Sepsis (A41.9) Active confirm ed Problem Idiopathic sleep related non-obstructive alveolar hypoventilation (905857684) Hypoxia, sleep related (G47.34) Active confirmed Problem Leukocytosis (123681021) Elevated white blood cell count (D72.829) Active confirmed Problem Edema (403105014) Facial edema (R60.0) Active confirmed Problem Gastrostomy present (214306823) PEG (percutaneous endoscopic gastrostomy) status (Z93.1) Active confirmed Problem Severe protein calorie malnutrition (266709943) Severe protein-calorie malnutrition (E43) Active confirmed Problem Disorder of endocrine system (049679216) 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.9) Active confirmed Problem Malnutrition of moderate degree (Baxter: 60% to less than 75% of standard weight) (17699984) Moderate malnutrition (E44.0) Active confirmed Problem Gastrostomy present (055120054) Feeding by G-tube (Z93.1) Active confirmed Problem Gastrostomy present (881720012) Gastrostomy in place (Z93.1) Active confirmed Problem Jejunostomy tube, device (physical object) (128471473) Jejunostomy tube present (Z93.4) Active confirmed Problem Intestinal obstruction (79724454) Partial intestinal obstruction, unspecified as to cause (K56.600) Active confirmed Vital Signs Blood pressure diastolic 80 mm Hg 11/14/2024 Height 66 in 11/14/2024 Blood pressure systolic 124 mm Hg 11/14/2024 Weight 186.6 lbs 11/14/2024 BMI 30.11 kg/m2 11/14/2024 Encounters Encounter Location Date Provider Diagnosis [address] [address] 01/10/2024 Brandyn Hoy GERD (gastroesophage al reflux disease) K21.9 ; Hypothyroidism E03.9 ; Anxiety F41.9 and IBS (irritable bowel syndrome) K58.[address] [address] 03/21/2024 Brandyn Hoy GERD (gastroesophage al reflux disease) K21.9 and Hypoglycemia E16.[address] [address] 08/22/2024 Brandyn Hoy Gram negative sepsis A41.[address] [address] 09/11/2024 Brandyn Hoy Sepsis A41.[address] [address] 10/03/2024 Brandyn Hoy GERD (gastroesophage al reflux disease) K21.9 ; IBS (irritable bowel syndrome) K58.9 and Severe protein-calorie malnutrition E43 [address] [address] 11/14/2024 Brandyn Hoy CAD (coronary artery disease) I25.10 and Moderate malnutrition E44.[address] [address] 01/03/2024 Brandyn Hoy GERD (gastroesophage al reflux disease) K21.9 ; Severe protein-calorie malnutrition E43 ; Hypothyroidism E03.9 and Partial intestinal obstruction, unspecified as to cause K56.[address] [address] 04/10/2024 Brandyn Hoy Hypoglycemia E16.2 [place] [address] [place] [facility] [place] [address] 04/19/2024 Brandyn Hoy Hypoglycemia E16.2 [facility] [address] [place] [place] [address] 08/07/2024 Brandyn Hoy GERD (gastroesophage al reflux disease) K21.9 ; Severe protein-calorie malnutrition E43 ; PEG (percutaneous endoscopic gastrostomy) status Z93.1 and Acquired hypothyroidism E03.9 [facility] [address] [place] [facility] [place] [address] 11/16/2024 Brandyn y [facility] [address] [place] [place] [address] 10/18/2024 Brandyn y [facility] [address] [place] [place] [address] 10/24/2024 Brandyn Hoy Sepsis A41.9 [facility] [address] [place] [facility] [place] [address] 10/26/2024 Brandyn y [facility] [address] [place] [place] [address] 10/27/2024 Brandyn Hoy GERD (gastroesophage al reflux disease) K21.9 [facility] [address] [place] [address] 10/27/2024 Brandyn Hoy [facility] [address] [place] [place] [address] 11/14/2024 Brandyn Hoy [facility] [address] [place] [facility] [place] [address] 10/04/2024 Brandyn Hoy [facility] [address] [place] [place] [address] 10/09/2024 Brandyn Hoy [facility] [address] [place] [place] [address] 10/13/2024 Brandyn Hoy GERD (gastroesophage al reflux disease) K21.9 [facility] [address] [place] [address] 10/17/2024 Brandyn Hoy IBS (irritable bowel syndrome) K58.9 [facility] [address] [place] [place] [address] 10/17/2024 Brandyn Hoy [facility] [address] [place] [place] [address] 10/18/2024 Brandyn Hoy [facility] [address] [place] [place] [address] 09/17/2024 Brandyn Hoy [facility] [address] [place] [address] 09/18/2024 Brandyn Hoy Partial intestinal obstruction, unspecified as to cause K56.600 [facility] [address] [place] [address] 09/27/2024 Brandyn Galoy [facility] [address] [place] [facility] [place] [address] 09/29/2024 Brandyn Hoy GERD (gastroesophage al reflux disease) K21.9 [facility] [address] [place] [place] [address] 10/03/2024 Brandyn Hoy IBS (irritable bowel syndrome) K58.9 [facility] [address] [place] [address] 10/04/2024 Brandyn Hoy [facility] [address] [place] [address] 09/04/2024 Brandyn Hoy GERD (gastroesophage al reflux disease) K21.9 [facility] [address] [place] [address] 09/04/2024 Brandyn Hoy [facility] [address] [place] [address] 09/04/2024 Brandyn Hoy [facility] [address] [place] [place] [address] 09/06/2024 Brandyn Hoy [facility] [address] [place] [address] 09/14/2024 Brandyn Hoy [facility] [address] [place] [address] 09/15/2024 Brandyn Hoy GERD (gastroesophage al reflux disease) K21.9 [facility] [address] [place] [address] 08/15/2024 Brandyn Hoy Partial intestinal obstruction, unspecified as to cause K56.600 [facility] [address] [place] [address] 08/15/2024 Brandyn Hoy [facility] [address] [place] [place] [address] 08/15/2024 Brandyn Hoy [facility] [address] [place] [facility] [place] [address] 08/17/2024 Brandyn Hoy GERD (gastroesophage al reflux disease) K21.9 [facility] [address] [place] [address] 08/21/2024 Brandyn Hoy [facility] [address] [place] [address] 08/31/2024 Brandyn Hoy GERD (gastroesophage al reflux disease) K21.9 [facility] [address] [place] [address] 07/21/2024 Brandyn Hoy Partial intestinal obstruction, unspecified as to cause K56.600 and GERD (gastroesophageal reflux disease) K21.9 [facility] [address] [place] [address] 07/21/2024 Brandyn Hoy [facility] [address] [place] [facility] [place] [address] 07/31/2024 Brandyn Hoy [facility] [address] [place] [place] [address] 08/04/2024 Brandyn Hoy GERD (gastroesophage al reflux disease) K21.9 [facility] [address] [place] [address] 08/09/2024 Brandyn Hoy Elevated white blood cell count D72.829 [facility] [address] [place] [address] 08/10/2024 Brandyn Hoy [facility] [address] [place] [address] 06/05/2024 Brandyn Hoy [facility] [address] [place] [address] 06/12/2024 Brandyn Hoy GERD (gastroesophage al reflux disease) K21.9 [facility] [address] [place] [address] 06/23/2024 Brandyn Hoy Partial intestinal obstruction, unspecified as to cause K56.600 and GERD (gastroesophageal reflux disease) K21.9 [facility] [address] [place] [address] 07/03/2024 Brandyn Hoy [facility] [address] [place] [address] 07/06/2024 Brandyn Hoy [facility] [address] [facility] [place] [address] 07/07/2024 Brandyn Hoy GERD (gastroesophage al reflux disease) K21.9 [facility] [address] [place] [address] 05/04/2024 Brandyn Hoy GERD (gastroesophage al reflux disease) K21.9 [facility] [address] [place] [address] 05/10/2024 Brandyn Hoy [facility] [address] [place] [address] 05/17/2024 Brandyn Hoy GERD (gastroesophage al reflux disease) K21.9 [facility] [address] [place] [address] 05/22/2024 Brandyn Hoy [facility] [address] [place] [address] 05/26/2024 Brandyn Hoy Partial intestinal obstruction, unspecified as to cause K56.600 [facility] [address] [facility] [place] [address] 05/30/2024 Brandyn Hoy GERD (gastroesophage al reflux disease) K21.9 [facility] [address] [place] [address] 04/18/2024 Brandyn Hoy Hypoglycemia E16.2 [facility] [address] [place] [address] 04/21/2024 Brandyn Hoy GERD (gastroesophage al reflux disease) K21.9 [facility] [address] [place] [address] 04/21/2024 Brandyn Hoy [facility] [address] [place] [address] 04/27/2024 Brandyn Hoy Partial intestinal obstruction, unspecified as to cause K56.600 [facility] [address] [place] [address] 04/28/2024 Brandyn Hoy [facility] [address] [place] [address] 05/02/2024 Brandyn Hoy [facility] [address] [place] [address] 04/04/2024 Brandyn Hoy Partial intestinal obstruction, unspecified as to cause K56.600 [facility] [address] [place] [address] 04/06/2024 Brandyn Hoy Partial intestinal obstruction, unspecified as to cause K56.600 [facility] [address] [place] [address] 04/07/2024 Brandyn Hoy GERD (gastroesophage al reflux disease) K21.9 [facility] [address] [place] [address] 04/10/2024 Brandyn Hoy [facility] [address] [place] [place] [address] 04/13/2024 Brandyn Hoy [facility] [address] [place] [place] [address] 04/18/2024 Brandyn Hoy [facility] [address] [place] [address] 03/22/2024 Brandyn Hoy [facility] [address] [place] [address] 03/24/2024 Brandyn Hoy GERD (gastroesophage al reflux disease) K21.9 [facility] [address] [place] [address] 03/27/2024 Brandyn Hoy GERD (gastroesophage al reflux disease) K21.9 [facility] [address] [place] [address] 03/29/2024 Brandyn Hoy [facility] [address] [place] [address] 2024 Brandyn Hoy Partial intestinal obstruction, unspecified as to cause K56.600 [facility] [address] [place] [address] 04/04/2024 Brandyn Hoy Partial intestinal obstruction, unspecified as to cause K56.600 [facility] [address] [facility] [place] [address] 03/03/2024 Brandyn Hoy [facility] [address] [place] [address] 03/06/2024 Brandyn Hoy Partial intestinal obstruction, unspecified as to cause K56.600 [facility] [address] [place] [address] 03/06/2024 Brandyn Hoy [facility] [address] [place] [address] 03/13/2024 Brandyn Hoy [facility] [address] [place] [address] 03/13/2024 Brandyn Hoy GERD (gastroesophage al reflux disease) K21.9 [facility] [address] [place] [address] 03/21/2024 Brandyn Hoy [facility] [address] [place] [address] 02/07/2024 Brandyn Hoy GERD (gastroesophage al reflux disease) K21.9 [facility] [address] [place] [address] 02/07/2024 Brandyn Hoy [facility] [address] [place] [address] 02/11/2024 Brandyn Hoy [facility] [address] [place] [address] 02/14/2024 Brandyn Hoy [facility] [address] [place] [address] 02/21/2024 Brandyn Hoy GERD (gastroesophage al reflux disease) K21.9 [facility] [address] [place] [address] 03/03/2024 Brandyn Hoy GERD (gastroesophage al reflux disease) K21.9 [facility] [address] [place] [address] 01/26/2024 Brandyn Hoy GERD (gastroesophage al reflux disease) K21.9 [facility] [address] [place] [address] 01/31/2024 Brandyn Hoy [facility] [address] [place] [address] 01/31/2024 Brandyn Hoy [facility] [address] [place] [address] 02/02/2024 Brandyn Hoy [facility] [address] [facility] [place] [address] 02/04/2024 Brandyn Hoy [facility] [address] [place] [place] [address] 02/04/2024 Brandyn Hoy Partial intestinal obstruction, unspecified as to cause K56.600 [facility] [address] [facility] [place] [address] 01/10/2024 Brandyn Hoy GERD (gastroesophage al reflux disease) K21.9 [facility] [address] [place] [address] 01/11/2024 Brandyn Alas [facility] [address] [place] [address] 01/18/2024 Brandyn Rosenthalkatarina [facility] [address] [place] [address] 01/18/2024 Brandyn Alas Anxiety F41.9 [facility] [address] [place] [address] 01/19/2024 Brandyn Alas [facility] [address] [place] [address] 01/26/2024 Brandyn katarina [facility] [address] [place] [address] 12/27/2023 Brandyn katarina [facility] [address] [place] [address] 12/30/2023 Brandyn katarina [facility] [address] [place] [address] 12/31/2023 Brandyn Alas [facility] [address] [place] [address] 01/03/2024 Brandyn Alas [facility] [address] [place] [address] 01/03/2024 Brandyn Alas Partial intestinal obstruction, unspecified as to cause K56.600 [facility] [address] [place] [address] 01/05/2024 Brandyn Galokatarina [facility] [address] [place] [address] 11/30/2023 Brandyn Rosenthaly Intractable abdomina l pain R10.9 and Abdominal pain R10.9 [facility] [address] [place] [address] 12/06/2023 Brandyn [facility] [address] [place] [address] 12/06/2023 Brandyn Alas [facility] [address] [place] [address] 12/20/2023 Brandyn Rosenthaly [facility] [address] [place] [facility] [place] [address] 12/22/2023 Brandyn Rosenthaly [facility] [address] [place] [address] 12/23/2023 Brandyn Alas Testosterone deficie ncy E29.1 [facility] [address] [place] [address] 11/22/2023 Brandyn Alas Allergic conjunctivi tis H10.10 [facility] [address] [place] [address] 11/23/2023 Brandyn Alas Jejunostomy tube pre sent Z93.4 [place] [address] [place] [address] 11/26/2023 Brandyn Alas Low testosterone lev el in female R79.89 [facility] [address] [place] [facility] [place] [address] 11/29/2023 Brandyn Evette [facility] [address] [place] [address] 11/30/2023 Brandyn Alas Assessments Encounter Date Diagnosis [...] unspecified as to cause (ICD-10 - K56.600) 01/03/2024 GERD (gastroesophageal reflux disease) (ICD-10 - [...] GERD (gastroesophageal reflux disease) (ICD-10 - K21.9) 08/22/2024 Gram negative sepsis (ICD-10 - A41.50) 09/11/2024 Sepsis (ICD-10 - A41.9) 10/03/2024 GERD (gastroesophageal reflux disease) (ICD-10 - K21.9) 10/03/2024 IBS (irritable bowel syndrome) (ICD-10 - K58.9) 07/07/2024 GERD (gastroesophageal reflux disease) (ICD-10 - K21.9) 07/21/2024 Partial intestinal obstruction, unspecified as to cause (ICD-10 - K56.600) 07/21/2024 GERD (gastroesophageal reflux disease) (ICD-10 - K21.9) 10/03/2024 Severe protein-calorie malnutrition (ICD-10 - E43) 08/07/2024 PEG (percutaneous endoscopic gastrostomy) status (ICD-10 - Z93.1) 01/10/2024 Anxiety (ICD-10 - F41.9) 01/03/2024 Hypothyroidism (ICD-10 - E03.9) 06/23/2024 GERD (gastroesophageal reflux disease) (ICD-10 - K21.9) 01/10/2024 IBS (irritable bowel syndrome) (ICD-10 - [...] abdomen complete 09/05/2023 US abdomen complete 09/06/2023 Next Appt Details Provider Name:Brandyn Alas, 10:00:00 AM, [address] [place], [address], Insurance Providers Payer Name Payer Address Payer Phone Subscriber Number Group Number Insured Name Patient Relationship to Insured Coverage Start Date Coverage End Date [employer] [place] [employer] [address] [address] [place] [address] [id number] Juan Garcia Self - patient is the [...] 01/2022 DELIVERYx3 APPENDECTOMY CHOLECYSTECTOMY MALS Surgery 02/2023 J Tube removal 2024 Port Replacement 2024 Hematoma Surgery 2024 Hospitalization History Reason Date(Month/Year) Broken Port/ Bacteremia 09/2024 Hypoglycemia/ Bowel Obstruction 02[place]07 [facility] [place]08 [facility]- malnutrition, DM 06/2023 [facility] [place] [facility] 10/2024 Sepsis 08/2024
--- OUTSIDE RECORDS SUMMARY | 2024-11-19 09:24 | XMS_ITS | Encounter Summary ---
Author Organization [facility] Address [address], [address] [place] [address] Care Team Providers Care Facilities Maintenance Manager Name Role Phone Thomas Alas MD Primary Care Provider [phone] Encounter Details Date Type Department Care Team (Latest Contact Info) Description 11/08/2024 Travel Social History Tobacco Use Types Packs/Day [...] documented as of this encounter Functional Status documented as of this encounter Plan of Treatment Not on file documented as of this encounter Visit Diagnoses Not on filedocumented in this encounter Care Teams Facilities Maintenance Manager Relationship Specialty Start Date End Date Thomas Alas MD [address] [place] [address] PCP - General Family Medicine 11/08/24 documented as of this encounter
--- OUTSIDE RECORDS SUMMARY | 2024-11-19 09:24 | XMS_ITS | Encounter Summary ---
Author Organization [facility] tem Address [id number] [address] [place] [address] Care Team Providers Care Humidifier Operator Name Role Phone No Pcp, No Pcp Primary Care Provider Unavailabl e Reason for Visit * Reason Comments Med Refill Encounter Details Date Type Department Care Team (Late st Contact Info) Description 09/17/2019 Refill Maternal- Medicine at [facility] [address] [place] [phone] Marc Martines MD [address], [address] [place] [address] Gestational diabetes mellitus (GDM) controlled on oral [...] documented as of this encounter Care Teams Humidifier Operator Relationship Specialty Start Date End Date No Pcp, [place] [address] PCP - General Family Medicine 09/22/17 documented as of this encounter
--- OUTSIDE RECORDS SUMMARY | 2024-11-19 09:24 | XMS_ITS | Encounter Summary ---
Author Organization [facility] Address [address], [address] [place] [address] Care Team Providers Care Hand Edge Bander Name Role Phone Thomas Alas MD Primary Care Provider [phone] Encounter Details Date Type Department Care Team (Latest Contact Info) Description 11/15/2024 Travel Social History Tobacco Use Types Packs/Day [...] on filedocumented in this encounter Care Teams Hand Edge Bander Relationship Specialty Start Date End Date Thomas Alas MD [address] [place] [address] PCP - General Family Medicine 11/08/24 documented as of this encounter
--- NOTE | 2024-11-19 09:25 | ED.GENADUL1 ---
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 The patient was just admitted to the hospital at the end of the last month for similar presentation Pain is 10 out of 10 Related Data Home Medications ?Medication ?Instructions ?Recorded ?Confirmed hydroxyzine HCl 25 mg tablet 25 mg PO BID PRN anxiety 09/17/22 11/19/24 topiramate 100 mg tablet 100 mg PO BID 09/17/22 11/19/24 metoclopramide HCl 10 mg tablet 10 mg PO AC PRN nausea and vomiting 06/14/23 11/19/24 escitalopram oxalate 20 mg tablet 20 mg PO DAILY 06/15/23 11/19/24 levothyroxine 75 mcg tablet 75 mcg PO DAILY 06/15/23 11/19/24 acetaminophen 325 mg tablet (Pain 650 mg PO Q4H PRN pain 06/24/23 11/19/24 Relief (acetaminophen)) blood sugar [facility] 03/29/24 11/19/24 Ultra Test strips) blood-glucose meter ([facility] 03/29/24 11/19/24 Ultra2 Meter) blood-glucose sensor (FreeStyle 03/29/24 11/19/24 Hunter 3 Plus Sensor device) fentanyl 25 mcg/hr transdermal 1 patch transdermal Q72H 03/29/24 11/19/24 patch hydrocodone 5 mg-acetaminophen 325 1 tab PO Q4H PRN pain 03/29/24 11/19/24 mg tablet lancets 30 gauge (OneTouch Delica 03/29/24 11/19/24 Plus Lancet) omeprazole 40 mg capsule,delayed 40 mg PO BID 03/29/24 11/08/24 release pen needle, diabetic 32 gauge x 03/29/24 11/19/24 (BD Stefania 2nd Gen Pen Needle) prucalopride 2 mg tablet 2 mg PO DAILY 03/29/24 11/19/24 trazodone 100 mg tablet 100 mg PO .qhs 03/29/24 11/19/24 ergocalciferol (vitamin D2) 1,250 1,250 mcg PO .Q7 06/21/24 11/19/24 mcg (50,000 unit) capsule hydrocortisone 10 mg tablet 10 mg PO DAILY 08/16/24 11/19/24 mirtazapine 45 mg tablet 45 mg PO BEDTIME 08/16/24 11/19/24 ondansetron 4 mg disintegrating 8 mg PO Q4H PRN nausea and vomiting 08/16/24 11/19/24 tablet aspirin 81 mg tablet,delayed 81 mg PO DAILY 11/08/24 11/19/24 release (Adult Aspirin Regimen) metoprolol tartrate 25 mg tablet 25 mg PO BID 11/08/24 11/19/24 rosuvastatin 10 mg tablet (Crestor) 10 mg PO DAILY 11/08/24 11/19/24 verapamil 240 mg 24 hr 240 mg PO DAILY 11/08/24 11/19/24 capsule,extended release Previous Rx's ?Medication ?Instructions ?Recorded tramadol 50 mg tablet 50 mg PO Q6H PRN pain #28 tabs 06/16/23 Lactobacillus 1 tab PO BID #40 wafers 09/02/24 acidophilus-Lactbacill.bifidus 1 billion cell oral wafer methocarbamol 500 mg tablet 500 mg PO BID PRN Muscle spasm #0 09/02/24 tabs promethazine 25 mg rectal 25 mg VT Q6H PRN nausea and 10/27/24 suppository vomiting #12 ea promethazine 25 mg tablet 25 mg PO TID PRN nausea and 10/27/24 vomiting #10 tabs Allergies Allergy/AdvReac Type Severity Reaction Status Date / Time adhesive Allergy Rash Verified 11/19/24 09:33 NSAIDS (Non-Steroidal Allergy intolerance Verified 11/19/24 09:33 Anti-Inflamma codeine AdvReac Vomiting Verified 11/19/24 09:33 Opioid HPI Opioid Management Most Recent Opioid Data: Last Pain Scale 8 Today, 13:11 Last ED Pain Assessment 11/14/24, 16:15 Last MAR Pain Assessment Today, 09:47 Last ORT Total Score 0 08/28/24, 18:16 Last ORT Risk Category Low Risk 08/28/24, 18:16 Ur Phencyclidine Scrn, (NEGATIVE) Negative 08/28/24, 14:10 Review of Systems ROS Status of ROS 10 or more systems reviewed and unremarkable except as noted in history and below [facility] Medical History (Updated 11/19/24 @ 13:37 by Barbara Benítez MD) Hypoglycemia ?E16.2 - Hypoglycemia, unspecified (ICD-10) Gastroenteritis ?K52.9 - Noninfective gastroenteritis and colitis, unspecified (ICD-10) Feeding by G-tube ?Z93.1 - Gastrostomy status (ICD-10) Abdominal pain ?R10.9 - Unspecified abdominal pain (ICD-10) Small bowel intussusception ?K56.1 - Intussusception (ICD-10) Nausea and vomiting ?R11.2 - Nausea with vomiting, unspecified (ICD-10) Flank pain ?R10.9 - Unspecified abdominal pain (ICD-10) Abdominal pain ?R10.9 - Unspecified abdominal pain (ICD-10) Acute abdomen ?R10.0 - Acute abdomen (ICD-10) Intractable nausea and vomiting ?R11.2 - Nausea with vomiting, unspecified (ICD-10) Intractable abdominal pain ?R10.9 - Unspecified abdominal pain (ICD-10) Depression ?F32.A - Depression, unspecified (ICD-10) Asthma ?J45.909 - Unspecified asthma, uncomplicated (ICD-10) Dyspareunia Pelvic pain ?R10.2 - Pelvic and perineal pain (ICD-10) Ovarian cyst ?N83.209 - Unspecified ovarian cyst, unspecified side (ICD-10) PONV (postoperative nausea and vomiting) ?R11.2 - Nausea with vomiting, unspecified (ICD-10) ?Z98.890 - Other specified postprocedural states (ICD-10) PCOS (polycystic ovarian syndrome) ?E28.2 - Polycystic ovarian syndrome (ICD-10) Hypothyroidism (acquired) ?E03.9 - Hypothyroidism, unspecified (ICD-10) Anxiety ?F41.9 - Anxiety disorder, unspecified (ICD-10) GERD (gastroesophageal reflux disease) ?K21.9 - Gastro-esophageal reflux disease without esophagitis (ICD-10) Sleep apnea ?G47.30 - Sleep apnea, unspecified (ICD-10) Anemia ?D64.9 - Anemia, unspecified (ICD-10) Fibromyalgia ?M79.7 - Fibromyalgia (ICD-10) Syncope (07/07/13) ?R55 - Syncope and collapse (ICD-10) Shingles ?B02.9 - Zoster without complications (ICD-10) Headache ?R51.9 - Headache, unspecified (ICD-10) Migraine ?G43.909 - Migraine, unspecified, not intractable, without status migrainosus (ICD-10) Mechanical ileus (01/31/20) ?K56.609 - Unspecified intestinal obstruction, unspecified as to partial versus complete obstruction (ICD-10) COVID-19 (~02/2020) ?U07.1 - COVID-19 (ICD-10) Kidney stones ?N20.0 - Calculus of kidney (ICD-10) Surgical History S/P percutaneous endoscopic gastrostomy (PEG) tube placement ?Z93.1 - Gastrostomy status (ICD-10) 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 - Celiac artery compression syndrome (ICD-10) H/O shoulder surgery (2022) ?Z98.890 - Other specified postprocedural states (ICD-10) History of hip surgery ?Z98.890 - Other specified postprocedural states (ICD-10) S/P right knee arthroscopy ?Z98.890 - Other specified postprocedural states (ICD-10) S/P left knee arthroscopy ?Z98.890 - Other specified postprocedural states (ICD-10) Hx of tonsillectomy ?Z90.89 - Acquired absence of other organs (ICD-10) History of thoracic surgery (~2021) ?Z98.890 - Other specified postprocedural states (ICD-10) History of esophagogastroduodenoscopy (EGD) (10/04/13) ?Z98.890 - Other specified postprocedural states (ICD-10) History of cholecystectomy (10/06/13) ?Z90.49 - Acquired absence of other specified parts of digestive tract (ICD-10) Delivery by section (~2016) Delivery by section (01/17/18) H/O colonoscopy (~2018) ?Z98.890 - Other specified postprocedural states (ICD-10) S/P right knee arthroscopy (07/21/18) ?Z98.890 - Other specified postprocedural states (ICD-10) Delivery by section (06/19/19) History of appendectomy (09/25/19) ?Z90.49 - Acquired absence of other specified parts of digestive tract (ICD-10) H/O laparoscopy (11/10/19) ?Z98.890 - Other specified postprocedural states (ICD-10) History of liver biopsy (~04/2020) ?Z98.890 - Other specified postprocedural states (ICD-10) H/O laparoscopy (07/18/20) ?Z98.890 - Other specified postprocedural states (ICD-10) H/O arthroscopy of right knee (08/07/20) ?Z98.890 - Other specified postprocedural states (ICD-10) S/P laparoscopic sleeve gastrectomy (09/03/20) ?Z98.84 - Bariatric surgery status (ICD-10) H/O: hysterectomy (11/12/20) ?Z90.710 - Acquired absence of both cervix and uterus (ICD-10) History of hernia repair (03/20/21) ?Z98.890 - Other specified postprocedural states (ICD-10) ?Z87.19 - Personal history of other diseases of the digestive system (ICD-10) Family History Other Family history of cancer Family history of diabetes mellitus Family history of hypertension Family history of myocardial infarction PONV (postoperative nausea and vomiting) Social History (Updated 08/16/24 @ 04:44 by Shelley Wong) Within the past year, how often did you have a drink containing alcohol: never Score interpretation: A score less than 3 is consistent with normal alcohol consumption. Smoking status: Never smoker Non-prescribed substance use: denies use Previous occupational history: disabled Known occupational exposures/hazards details: disabled Highest level of school completed/degree received: Master's degree Are you now , , , , never or living with a partner: In a typical week, how many times do you talk on the telephone with family, friends, or neighbors: 3 or more times per week How often do you get together with friends or relatives: twice per week How often do you attend hinduism or mu-ism services: 4 or more times per year Do you belong to any clubs or organizations such as hinduism groups unions, fraternal or athletic groups, or school groups: no Total score: 3 Score interpretation: A score of greater than or equal to 2 indicates the lowest level of social isolation. Little interest or pleasure in doing things: not at all Feeling down, depressed, or hopeless: not at all Feel stressed/tense/nervous/anxious/difficulty sleeping: to some extent Do you think of yourself as: straight/heterosexual Gender Identity: female Exam Narrative Exam Narrative: Nurses notes and vital signs reviewed and patient is not hypoxic. General: Well-appearing and in no apparent distress. Skin: Warm, dry, no pallor noted. No rash. Head: Normocephalic, atraumatic. Neck: Supple, non-tender. Cardiovascular: Regular Rate and Rhythm without murmur, gallop or rub. Respiratory: No accessory muscle use or respiratory distress. Lungs are clear to auscultation, no wheezing, rales or rhonchi Chest Wall: no tenderness Back: No midline thoracic or lumbar vertebral tenderness. No CVA tenderness Musculoskeletal: normal ROM, no calf or popliteal tenderness, no lower extremity edema/swelling GI: Abdomen is soft, non-distended. Normal bowel sounds. No masses appreciated. No tenderness to palpation. No rebound, guarding, or rigidity noted. Neurological: A&O x4. No cranial nerve dysfunction observed. No truncal ataxia. Moves all extremities. Sensation intact. Psychiatric: Cooperative and interactive. Normal mood and affect. Constitutional Vital Signs, click to edit/add: Last Vital Signs Temp 98.7 F 11/19/24 09:34 Pulse 65 11/19/24 12:20 Resp 12 11/19/24 12:20 BP 110/64 11/19/24 11:00 Pulse Ox 99 11/19/24 10:50 O2 Del Method Room Air 11/19/24 09:52 Course Vital Signs Vital signs: Vital Signs Temperature 98.7 F 11/19/24 09:34 Pulse Rate 84 11/19/24 09:34 Respiratory Rate 22 H 11/19/24 09:34 Blood Pressure 130/88 11/19/24 09:34 Pulse Oximetry 99 11/19/24 09:34 Oxygen Delivery Method Room Air 11/19/24 09:34 Temperature 98.7 F 11/19/24 09:34 Pulse Rate 65 11/19/24 12:20 Respiratory Rate 12 11/19/24 12:20 Blood Pressure 110/64 11/19/24 11:00 Pulse Oximetry 99 11/19/24 10:50 Oxygen Delivery Method Room Air 11/19/24 09:52 Medical Decision Making MDM Narrative Medical decision making narrative: The patient is a high risk patient with the fact that she had coronary artery dissection after Compazine injection last month The patient EKG showing sinus rhythm with a heart rate of [address] elevation or depression Troponin repeated twice was negative Chest x-ray showed no acute pathology CBC and chemistry within normal except for the mild hypoglycemia I did provide the patient with dextrose as well as Zofran and Dilaudid for pain after the morphine was not effective She already had a CT angio done at November 14 for similar presentation the right now with the fact that the troponin is not elevated the patient still have some pain and she was provided again with Dilaudid Patient case discussed with and he agreed on admitting the patient for further evaluation Lab Data Labs: Lab Results 11/19/24 11/19/24 Range/Units 09:30 11:48 WBC 3.4 L (4.0-11.0) 10^3/uL RBC 3.33 L (4.20-5.40) 10^6/uL Hgb 9.8 L (12.0-16.0) g/dL Hct 29.6 L (36.0-48.0) % MCV 88.9 (81.0-99.0) fL MCH 29.4 (26.7-34.0) pg MCHC 33.1 (29.9-35.2) g/dL RDW 14.0 (11.0-15.0) % Plt Count 323 (150-450) 10^3/uL MPV 10.2 (9.5-13.5) fL Neut % (Auto) 43.8 (43.0-75.0) % Lymph % (Auto) 42.1 (20.5-60.0) % [place] % (Auto) 8.8 (1.7-12.0) % Eos % (Auto) 3.8 (0.9-7.0) % Baso % (Auto) 1.2 (0.2-2.0) % Neut # (Auto) 1.5 (1.4-6.5) 10^3/uL Lymph # (Auto) 1.4 (1.2-3.8) 10^3/uL [place] # (Auto) 0.3 (0.3-0.8) 10^3/uL Eos # (Auto) 0.1 (0.0-0.7) 10^3/uL Baso # (Auto) 0.0 (0.0-0.1) 10^3/uL Abs Immat Gran (auto) 0.01 (0.00-0.03) 10^3/uL Imm/Tot Granulo (auto) 0.3 (0.0-0.5) % Sodium 142 (136-145) mmol/L Potassium 3.7 (3.5-5.1) mmol/L Chloride 107 (98-107) mmol/L Carbon Dioxide 26.0 (21.0-32.0) mmol/L Anion Gap 12.7 BUN 11.0 (7.0-18.0) mg/dL Creatinine 0.70 (0.55-1.02) mg/dL Est GFR ( Amer) >60 (>=60 mL/min/1.73m^2) Est GFR (Non-Af Amer) >60 (>=60 mL/min/1.73m^2) BUN/Creatinine Ratio 15.7 Glucose 69 L (74-106) mg/dL Calcium 8.1 L (8.5-10.1) mg/dL Total Bilirubin 0.4 (0.2-1.0) mg/dL AST 22 (15-37) U/L ALT 18 (14-59) U/L Alkaline Phosphatase 58 (46-116) U/L Troponin I High Sens 4.4 4.8 (4.0-51.3) pg/mL Total Protein 6.4 (6.4-8.2) g/dL Albumin 3.2 L (3.4-5.0) g/dL Globulin 3.2 g/dL Albumin/Globulin Ratio 1.0 Serum HCG, Qual Negative (NEGATIVE) Discharge Plan Discharge Chief Complaint: Chest Pain Clinical Impression: Chest pain Patient Disposition: Admitted as Observation Time of Disposition Decision: 13:37
--- OUTSIDE RECORDS SUMMARY | 2024-11-19 09:25 | XMS_ITS | Encounter Summary ---
Author Organization [facility] Address [address] [place] [address] Care Team Providers Care It Data Architect Name Role Phone Thomas Alas MD Primary Care Provider [phone] Encounter Details Date Type Department Care Team [...] in a nursing home (including now)? No 11/09/2024 Hunger Vital Sign [...] 10:04 PM EDT Palmer Cardoza RN * Brutus Fall Risk Interventions Question Answer Date of Assessment Author Brutus Fall Risk Interventions Complete 025 8:00 PM [...] 11/09/2024 8:00 PM EDT Diamond Cardoza RN Lien Searcher Status On 11/09/2024 8:00 PM EDT Diamond Cardoza RN Telemetry Box Number [id number] 11/09/2024 8:00 PM E DT Diamond Cardoza RN Jugular Venous Distention (JVD) No 11/09/2024 8:00 PM EDT Diamond Cardoza RN Cardiac Symptoms Other (Comment) 11/09/2024 8:00 PM ED T Diamond Cardoza RN Heart Sounds S1, S2 11/09/2024 8:00 PM EDT Diamond Cardoza RN * Gastrointestinal Question Answer Date of Assessment Author Last BM Date [id number] 11/09/2024 8:00 PM EDT Diamond Cardoza RN [...] Answer Date of Assessment Author Psychosocial ([facility]) [facility] 11/09/2024 8:00 PM EDT Diamond Cardoza RN [...] Question Answer Date of Assessment Author Cardiac ([facility]) [facility] 11/09/2024 2:01 PM EDT Kimberlee Lara RN Telemetry Yes 11/09/2024 11:00 AM EDT Kimberlee Lara RN * Respiratory Question Answer Date of Assessment Author Respiratory ([facility]) [facility] 11/09/2024 2:01 PM EDT Kimberlee Allen RN * Charting Type Question Answer Date of Assessment Author Charting Type Shift assessment 11/09/2024 8:00 PM EDT Diamnod Cardoza RN * Patient's Stated Pain Goal Answer Date of Assessment Author No pain 11/09/2024 10:04 PM EDT Palmer Cardoza RN * Cultural Requests During Hospitalization Answer Date of Assessment Author none 11/09/2024 8:00 PM EDT Fausto Cardoza RN * Spiritual Requests During Hospitalization Answer Date of Assessment Author hoahaoism 11/09/2024 8:00 PM EDT Fausto Cardoza RN * Genitourinary Question Answer Date of Assessment Author Genitourinary ([facility]) [facility] 11/09/2024 8:00 PM ED T Diamond Cardoza [...] Safe Yes 11/09/2024 8:00 PM EDT Diamond Cardoza RN * Mobility Question Answer Date of [...] Precautions None 11/09/2024 8:00 PM EDT Diamond Cardzoa RN * ADL Screening Question Answer Date [...] 2 11/09/2024 12:17 PM Natalie Ford RN PALLIATIVE SENIOR NP Evaluation Needed 2 11/09/2024 12:17 PM JUNT [...] PM EDT Diamond Cardoza RN Notification Time [id number] 11/09/2024 11: 30 PM EDT Diamond Cardoza RN * Brutus Fall Risk Interventions Question Answer Date of Assessment Author Brutus Fall Risk Interventions Complete 8:00 PM EDT [...] deficits and behaviors that affect risk of falls;[place] fall precautions as indicated by assessment;Educate patient/family [...] Author 0 11/09/2024 12:16 PM EDT Jono Whitley, DEE documented as of this encounter Plan of Treatment Upcoming Encounters Date Type Department Care Team (Late st Contact Info) Description 11/28/2024 11:00 AM EDT Follow-Up [facility] Cardiology [address] [place] [phone] Wali Collins MD [address] [place] [address] 12/04/2024 10:00 AM EDT Office Visit [facility] Heart at [facility] [address] [place] [phone] Katie Altamirano MD [address] [facility] [phone] documented as of this encounter Visit Diagnoses Not on filedocumented in this encounter Care Teams It Data Architect Relationship Specialty Start Date End Date Thomas Alas MD [address] [facility] [address] [address] PCP - General Family Medicine 08/17/24 documented as of this encounter
--- OUTSIDE RECORDS SUMMARY | 2024-11-19 09:26 | XMS_ITS | Encounter Summary ---
Author Organization [facility] Address [address] [place] [address] Care Team Providers Care Coat Checker Name Role Phone Anna Mendez AIR TECHNICIAN Unavailable Unallocated, Noms Provider Primary Care Provi pako Thomas Alas MD Primary Care Provider [phone] Encounter Details Date Type Department Care Team (Late st Contact Info) Description 10/29/2023 Abstract [facility] [address] [place] [phone] Vero Medeiros LPN [address] [id number] Social History Tobacco Use Types Packs/Day Years [...] on filedocumented in this encounter Care Teams Coat Checker Relationship Specialty Start Date End Date Unallocated, [place] [address] PCP - General 07/23/22 12/13/23 Thomas Alas MD [address] [place] [address] PCP - General Family Medicine 12/14/23 Anna Mendez NP [address] [place] [address] Referring Physician Family Medicine 07/23/22 documented as of this encounter
--- OUTSIDE RECORDS SUMMARY | 2024-11-19 09:26 | XMS_ITS ---
Author Organization [facility] Address [address] [place] [address] Care Team Providers Care Wiring Inspector Name Role Phone Thomas Alas MD Primary Care Provider Active Problems Problem Noted Date Diagnosed Date Common bile duct dilatation 11/16/2024 Assessment & Plan (11/16/2024 2:13 AM EDT): CT chest/abd/pelvis noted CBD dilation and apperance of complex inflammatory changes. Patient has required multiple doses of opiates and antiemetics to control symptoms. Request to transfer to the [facility] where much of her advanced care has been provided with Specific concern that she may need ERCP/advanced endoscopy to further evaluation Pain management GI consult Disorder of endocrine system 11/09/2024 Lumbar radiculopathy [...] 11/02/2024 Chest pain 10/30/2024 Assessment & Plan (11/16/2024 2:13 AM EDT): Pt is afebrile, VSS. First and second trop were both less than 6. EKG normal. CBC ok except HGB 9.1, BNP 530. Pain management Cardiology consult Assessment & Plan (11/12/2024 12:39 PM EDT): [...] incomplete - repeat catheterization from femoral access 9/17 showing type III spontaneous coronary artery dissection for which she was placed on dual antiplatelet therapy, statin, beta-reece - due to recurrence of chest pain today patient brought urgently back to [employer]ating Supervisor Assessment & Plan (11/01/2024 11:57 AM EDT): [...] pain today patient brought urgently back to Decorating Supervisor Sepsis due to Klebsiella 08/18/2024 Assessment & Plan (08/19/2024 1:03 PM EDT): - source is likely the cellulitis around the J-tube status post J-tube removal. - CT scan from [facility] showing no abscess. - Infectious disease recommendations appreciated, continue with ceftriaxone. - Repeat blood cultures on 08/16: NGTD - central line in place, does not look like infected, continue monitoring, central line care. Assessment & Plan (08/18/2024 12:20 PM EDT): - source is likely the cellulitis around the J-tube status post J-tube removal. - CT scan from [facility] showing no abscess. - Infectious disease recommendations appreciated, continue with ceftriaxone. - Repeat blood cultures on 08/16: NGTD - central line in place, does not look like infected, continue monitoring, central line care. Sepsis due to Enterococcus 08/18/2024 Assessment & Plan (08/19/2024 1:03 PM EDT): - source is likely the cellulitis around the J-tube status post J-tube removal. - CT scan from [facility] showing no abscess. - Infectious disease recommendations appreciated, continue with ceftriaxone. - Repeat blood cultures on 08/16: NGTD - central line in place, does not look like infected, continue monitoring, central line care. Assessment & Plan (08/18/2024 12:20 PM EDT): - source is likely the cellulitis around the J-tube status post J-tube removal. - CT scan from [facility] showing no abscess. - Infectious disease [...] and scheduled tramadol. Continue with as needed [place]. Assessment & Plan (08/18/2024 12:20 PM EDT): - continue with home meds including fentanyl patch and scheduled tramadol. Continue with as needed [place]. MALT (mucosa associated lymphoid tissue) 025 Assessment [...] dexamethasone Acquired hypothyroidism 08/18/2024 Assessment & Plan (11/16/2024 2:13 AM EDT): Resume home medications Assessment & Plan (11/02/2024 1:29 PM EDT): [...] GERD (gastroesophageal reflux disease) Assessment & Plan (11/16/2024 2:13 AM EDT): Resume home medications Assessment & Plan (11/02/2024 1:29 PM EDT): [...] daily DVT prophylaxis is VTE protocols per [facility] GI prophy Protonix Monitor labs) Obtain [...]
--- OUTSIDE RECORDS SUMMARY | 2024-11-19 09:26 | XMS_ITS | Clinical Summary ---
Author Organization [facility] Address [address] [place] [address] Care Team Providers Care Process Control Technician Name Role Phone Britt Alas MD Primary Care Provider [phone] Allergies Active Allergy Reactions Criticality Noted Date [...] for opioid reversal. 1 mL 11/14/19 25 025 Active ranolazine (Ranexa) 500 mg 12 hr tabletIndicati ons:Chest pain Take 1 tablet (500 mg) by mouth two times daily for 189 doses. Do not crush, chew, or split. 60 tablet 3 11/14/19 25 026 Active colchicine 0.6 mg tabletIndicati ons:Chest pain Take 0.5 tablets (0.3 mg) by mouth every other day. Do not start before November 14, 2024. 8 tablet 11/15/19 25 025 Active fentaNYL (Duragesic) 12 mcg/hr Place 1 patch on the skin every 3rd (third) day. Give with 25 mcg patch Active HYDROcodone-ac etaminophen (Onekama) 5-325 mg tablet Take 2 tablets by mouth every 4 (four) hours if needed. Active linaCLOtide (Linzess) 290 mcg capsule Take [...] at Discharge) ergocalciferol (Vitamin D-2) 1.25 MG (15598 Units) capsule Take 50,000 Units by mouth 1 (one) time per week. Discontinued(St op Taking at Discharge) fentaNYL (Duragesic) 12 mcg/hr Place 1 patch on the skin every 3rd (third) day. Takes 12 mcg and 25 mcg together every 3 days Discontinued(St op Taking at Discharge) HYDROcodone-ac etaminophen (Onekama) 5-325 mg tablet Take 2 tablets by mouth every 4 (four) hours if needed for moderate-sharon re pain (4-10 pain score). Discontinued(St op Taking at Discharge) prochlorperazi ne (Compazine) 10 mg tablet Take 10 mg by mouth every 6 (six) hours if needed for nausea or vomiting. 025 Discontinued(St op Taking at Discharge) atorvastatin (Lipitor) [...] control symptoms. Request to transfer to the [facility] system where much of her advanced [...] & Plan (11/11/2024 10:32 AM EDT): - [facility] - Blood glucose is well controlled on [...] pain today patient brought urgently back to [facility] Assessment & Plan (11/01/2024 11:57 AM EDT): [...] pain today patient brought urgently back to [facility] Sepsis due to Klebsiella 08/18/2024 Assessment & Plan (08/19/2024 1:03 PM EDT): - source is likely the cellulitis around the J-tube status post J-tube removal. - CT scan from [place] showing no abscess. - Infectious disease recommendations appreciated, continue with ceftriaxone. - Repeat blood cultures on 08/16: NGTD - central line in place, does not look like infected, continue monitoring, central line care. Assessment & Plan (08/18/2024 12:20 PM EDT): - source is likely the cellulitis around the J-tube status post J-tube removal. - CT scan from [place] showing no abscess. - Infectious disease recommendations appreciated, continue with ceftriaxone. - Repeat blood cultures on 08/16: NGTD - central line in place, does not look like infected, continue monitoring, central line care. Sepsis due to Enterococcus 08/18/2024 Assessment & Plan (08/19/2024 1:03 PM EDT): - source is likely the cellulitis around the J-tube status post J-tube removal. - CT scan from [place] showing no abscess. - Infectious disease recommendations appreciated, continue with ceftriaxone. - Repeat blood cultures on 08/16: NGTD - central line in place, does not look like infected, continue monitoring, central line care. Assessment & Plan (08/18/2024 12:20 PM EDT): - source is likely the cellulitis around the J-tube status post J-tube removal. - CT scan from [place] showing no abscess. - Infectious disease recommendations [...] and scheduled tramadol. Continue with as needed Onekama. Assessment & Plan (08/18/2024 12:20 PM EDT): - continue with home meds including fentanyl patch and scheduled tramadol. Continue with as needed Onekama. MALT (mucosa associated lymphoid tissue) 025 Assessment [...] Encounters Date Type Department Care Team Description 11/15/2024 7:56 PM EDT - 11/17/2024 2:42 PM EDT Hospital Encounter [facility] [address] [place] [address] Sandeep Casey MD Chest pain (Primary Dx) Discharge Disposition: Home-Health Care Svc (06) 11/15/2024 Travel 11/09/2024 10:47 AM EDT - 11/13/2024 2:34 PM EDT Hospital Encounter [facility] [address] [place] [address] Urbano Santos MD Chang, Kyu Chul, MD Schwarz, Stephanie, DO Chest pain (Primary Dx); Chronic narcotic use Discharge Disposition: Home-Health Care Svc (06) 11/09/2024 Travel 11/02/2024 8:45 PM EDT Anesthesia Event [facility] Main Operating Room [address] [place] [address] David Reyes MD 11/02/2024 8:45 PM EDT - 11/02/2024 11:15 PM EDT Surgery [facility] Main Operating Room [address] [place] [address] Jose Angel Fox MD EXPLORATION, HEMATOMA Right Groin 11/02/2024 5:41 PM EDT - 11/02/2024 6:41 PM EDT Surgery [facility] Heart [facility] Vascular Lab [address] [place] [address] Wali Collins MD Coronary angiography 11/01/2024 12:30 PM EDT - 11/01/2024 1:30 PM EDT Surgery [facility] Vascular Lab [address] [place] [address] Mitchell Agustin MD Coronary angiography 10/31/2024 1:30 PM EDT - 10/31/2024 2:30 PM EDT [facility] [address] [facility] [place] [address] Tino Gilmore MD Coronary angiography 10/30/2024 6:28 PM EDT - 11/07/2024 5:10 PM EDT Hospital Encounter [facility] [address] [place] [address] Sandeep Casey MD Spencer, Caleb T, MD Vicente, David, MD Mansur, Sarmed, MD Moukarbel, George, MD Hematoma (Primary Dx); Chest pain; NSTEMI (non-ST elevated myocardial infarction) ([facility]); Spontaneous dissection of coronary artery; Gastroparesis; Gastroesophageal reflux disease without esophagitis Discharge Disposition: Home-Health Care [facility] (06) 10/30/2024 Travel 08/20/2024 Orders Only [facility] Vascular and Endovascular Surgery [address] [place] [address] Mikayla Jennings PA-C Wound cellulitis (Primary Dx) 08/20/2024 Orders Only [facility] Vascular and Endovascular Surgery [address] [place] [address] Mikayla Jennings PA-C Wound cellulitis (Primary Dx) 08/16/2024 8:48 PM EDT - 08/20/2024 3:55 PM EDT Hospital Encounter [facility] 5ABCD Surgery Stepdown [address] [facility] [place] [address] Sandeep Casey MD Mansur, Sarmed, MD Okoro, Bonaventure, MD Bacteremia (Primary Dx) Discharge Disposition: Home or Self Care () from Last 3 Months Family History Medical [...] 0.6 oz pur e alcohol) [facility] Utilities Answer Date Recorded In the past 12 months has e [employer], gas, oil, or water company threatened to [...] any time in the past 12 m [facility], were you homeless or living in a chcf (including now)? No 11/15/2024 Hunger Vital Sign [...] Mass Index 30.89 11/15/2024 8:36 PM EDT Plan of Treatment Upcoming Encounters Date Type Department Care Team (Late st Contact Info) Description 11/28/2024 11:00 AM EDT Follow-Up [facility] Cardiology [address] [place] [address] Wali Collins MD [address] [place] [address] 12/04/2024 10:00 AM EDT Office Visit [facility] Heart [address] [place] [address] Katie Altamirano MD [address] [facility] [place] [address] Health Maintenance Due Date Last Done Comments [...] Pap Smear 05/22/2023 05/21/2020 COVID-19 Vaccine ( - season) 2024 02/18/2021, 06/23/2020 Influenza Vaccine (#1) [...] Procedure Name Priority Date/Time Associated Diagnosis Comments HEPATIC FUNCTION PANEL Add-On 11/17/2024 5:17 AM EDT MAGNESIUM Pending Discharge 11/17/2024 5:17 AM EDT CBC Pending Discharge 11/17/2024 5:17 AM EDT BASIC METABOLIC PANEL Pending Discharge 11/17/2024 5:17 AM EDT MR ABDOMEN WO CONTRAST MRCP STAT 11/16/2024 8:32 PM EDT ECG 12-LEAD Routine 11/16/2024 9:55 AM EDT HEPATIC FUNCTION PANEL STAT Add-on 11/16/2024 5:36 AM EDT HIGH SENSITIVITY TROPONIN I Add-On 11/16/2024 5:36 AM EDT CBC Routine 11/16/2024 5:36 AM EDT BASIC METABOLIC PANEL Routine 11/16/2024 5:36 AM EDT XR CHEST 1 VIEW Routine 11/13/2024 12:51 [...] BLOOD CELLS Routine 11/02/2024 9:10 PM EDT SD AN ELECTIVE ENDOTRACHEAL AIRWAY Routine 11/02/2024 8:56 [...] PM EDT NSTEMI (non-ST elevated myocardial infarction) ([facility]) CORONARY ANGIOGRAPHY Routine 10/31/2024 7:34 PM EDT [...] EDT TSH3 REFLEX TO FT4 STAT 10/30/2024 7 :11 PM EDT CBC WITH AUTO DIFFERENTIAL STAT [...] PANEL Pending Discharge 08/19/2024 4:15 AM EDT from Last 3 Months Results * (ABNORMAL) CBC (11/17/2024 5:17 AM EDT) Only the most recent of17 resultswithin the time period is included. Auto WBC 2.92(L) 4.00 - 10.60 10*3/uL 11/17/2024 5:40 AM EDT [facility] ([facility]) RBC 2.88(L) 3.80 - 5.00 10*6/uL 11/17/2024 5:40 AM EDT [facility] ([facility]) Hemoglobin 8.5(L) 12.0 - 15.0 g/dL 11/17/2024 5:40 AM EDT [facility] ([facility]) Hematocrit 25.9(L) 36.0 - 45.0 % 11/17/2024 5:40 AM EDT [facility] ([facility]) MCV 89.9 82.0 - 98.0 fL 11/17/2024 5:40 AM EDT [facility] ([facility]) MCH 29.5 27.0 - 33.0 pg 11/17/2024 5:40 AM EDT [facility] ([facility]) MCHC 32.8 32.0 - 35.0 g/dL 11/17/2024 5:40 AM EDT [facility] ([facility]) RDW 14.6 11.5 - 15.0 % 11/17/2024 5:40 AM EDT [facility] ([facility]) Platelets 292 150 - 400 10*3/uL 11/17/2024 5:40 AM EDT [facility] ([facility]) Blood Venous blood specimen / Unknown Existing Catheter / Unknown 11/17/2024 5:17 AM EDT 11/17/2024 5:25 AM EDT us Sandeep Casey MD LAB BLOOD ORDERABLES Final Resul t [facility]) [address] [place] [address] * Magnesium (11/17/2024 5:17 AM EDT) Only the most recent of10 resultswithin the time period is included. Magnesium 1.9 1.9 - 2.7 mg/dL 11/17/2024 7:00 AM EDT [facility]) Blood Venous blood specimen / Unknown Existing Catheter / Unknown 11/17/2024 5:17 AM EDT 11/17/2024 5:24 AM EDT us Sandeep Casey MD LAB BLOOD ORDERABLES Final Resul t Performing Organization Address City/[facility]/ZIP Co de Phone Number [facility]) [address] [place] [address] * (ABNORMAL) Hepatic function panel (11/17/2024 5:17 AM EDT) Only the most recent of2 resultswithin the time period is included. Total Bilirubin 0.3 0.3 - 1.0 mg/dL 11/17/2024 8:50 AM EDT [facility] ([facility]) Bilirubin, Direct 0.0 0 - 0.2 mg/dL 11/17/2024 8:50 AM EDT [facility] ([facility]) Alkaline Phosphatase 46 34 - 104 U/L 11/17/2024 8:50 AM EDT [facility] ([facility]) AST 20 13 - 39 U/L 11/17/2024 8:50 AM EDT [facility] ([facility]) ALT (SGPT) 11 7 - 52 U/L 11/17/2024 8:50 AM EDT [facility] ([facility]) Total Protein 5.2(L) 6.0 - 8.3 g/dL 11/17/2024 8:50 AM EDT [facility] ([facility]) Albumin 3.2(L) 3.5 - 5.7 g/dL 11/17/2024 8:50 AM EDT [facility] ([facility]) Blood Venous blood specimen / Unknown Existing Catheter / Unknown 11/17/2024 5:17 AM EDT 11/17/2024 5:24 AM EDT us Arabella Patel [facility] LAB BLOOD ORDERABLES Final Result [facility] ([facility]) [address] [place] [address] * (ABNORMAL) Basic metabolic panel (11/17/2024 5:17 AM EDT) Only the most recent of18 resultswithin the time period is included. Sodium 142 136 - 145 mmol/L 11/17/2024 7:00 AM EDT [facility] ([facility]) Potassium 3.6 3.5 - 5.1 mmol/L 11/17/2024 7:00 AM EDT [facility] ([facility]) Chloride 111(H) 98 - 107 mmol/L 11/17/2024 7:00 AM EDT [facility] ([facility]) CO2 25 21 - 31 mmol/L 11/17/2024 7:00 AM EDT [facility] ([facility]) BUN 10 7 - 25 mg/dL 11/17/2024 7:00 AM EDT [facility] ([facility]) Creatinine 0.72 0.60 - 1.20 mg/dL 11/17/2024 7:00 AM EDT [facility] ([facility]) Glucose 81 70 - 100 mg/dL 11/17/2024 7:00 AM EDT [facility] ([facility]) Calcium 8.0(L) 8.6 - 10.3 mg/dL 11/17/2024 7:00 AM EDT [facility] ([facility]) Anion Gap 10 7 - 20 mmol/L 11/17/2024 7:00 AM EDT [facility] ([facility]) eGFR 111.8 >60.0 mL/min/1. 73m*2 11/17/2024 7:00 AM EDT [facility] ([facility]) Comment:[facility] s estimated glomerular filtration rate [...] individuals. BUN/Creatinine Ratio 13.9 04/2024 7:00 AM EDT [facility] ([facility]) Blood Venous blood specimen / Unknown Existing Catheter / Unknown 11/17/2024 5:17 AM EDT 11/17/2024 5:24 AM EDT us Sandeep Casey MD LAB BLOOD ORDERABLES Final Resul t [facility] ([facility]) [address] [place] [address] * MR abdomen wo contrast MRCP (11/16/2024 [...] transverse colon. Electronically signed: Willis Simons MD. Sandeep Casey MD [facility] MRI PROCEDURES Final Result * ECG 12 lead (11/16/2024 9:55 AM EDT) Only the most recent of13 resultswithin the time period is included. Ventricular Rate 71 BPM GE MUSE Atrial Rate 71 BPM GE MUSE SD Interval 146 ms GE MUSE QRS DURATION 98 ms GE MUSE QT Interval 414 ms GE MUSE QTC CALCULATION(BAZE TT) 449 ms GE MUSE P Mcguffey 67 degrees GE MUSE R-Mcguffey 40 degrees GE MUSE T Wave Mcguffey 57 degrees GE MUSE 11/16/2024 9:32 AM [...] Erlin Geller (80) on 11/16/2024 10:56:16 AM Jonelle Harrison MD ECG ORDERABLES Final Result Performing Organization Address City/[facility]/ZIP Co de Phone Number GE MUSE * High Sensitivity Troponin I (11/16/2024 5:36 AM EDT) Only the most recent of20 resultswithin the time period is included. High Sensitivity Troponin I 2 <15 ng/L 11/16/2024 10:17 AM EDT [facility] ([facility]) Blood Venous blood specimen / Unknown Existing Catheter / Unknown 11/16/2024 5:36 AM EDT 11/16/2024 5:42 AM EDT Jonelle Harrison MD LAB BLOOD ORDERABLES Final Res ult [facility] ([facility]) [address] [place] [address] * XR chest 1 view (11/13/2024 12:51 PM EDT) Only the most recent of2 resultswithin the time period is included. Anatomical [...] 11:08 AM EDT) Only the most recent of57 resultswithin the time period is included. [facility] Signature Glucose POC 97 70 - 105 mg/dL 11/13/2024 11:26 AM EDT [facility] ([facility]) Comment:acarr12 Blood Capillary blood specimen / Unknown 11/13/2024 11:08 AM EDT 11/13/2024 11:26 AM EDT Narrative [facility] ([facility]) - 11/13/2024 11:26 AM EDT Waived Testing in the ED is performed under the ED CLIA certificate #[id number]. us Marky Tavares MD LAB BLOOD ORDERABLES Final Res ult [facility] ([facility]) [address] [place] [address] * CTA Chest W IV Contrast (11/11/2024 [...] 13.4(H) <=5.0 mg/L 11/13/2024 10:24 AM EDT [facility] ([facility]) Comment:Testing performed us ing a new methodology, turbidimetry. Normal ranges have been updated. Old normal range was <8 mg/L. Blood Venous blood specimen / Unknown Existing Catheter / Unknown 11/11/2024 3:29 PM EDT 11/11/2024 3:42 PM EDT us Jonelle Harrison MD LAB BLOOD ORDERABLES Final Res ult [facility] ([facility]) [address] [place] [address] * (ABNORMAL) Sedimentation rate (11/11/2024 6:39 AM EDT) Sed Rate 20(H) <20 mm/hr 11/11/2024 12:20 PM EDT [facility] ([facility]) Blood Venous blood specimen / Unknown Existing Catheter / Unknown 11/11/2024 6:39 AM EDT 11/11/2024 6:43 AM EDT Jonelle Harrison MD LAB BLOOD ORDERABLES Final Res ult Performing Organization Address [facility] Co de Phone Number [facility] ([facility]) [address] [place] [address] * LEXISCAN STRESS MYOCARDIAL PERFUSION IMAGING (11/10/2024 11:23 AM EDT) Anatomical Region Laterality Modality Other 11/10/2024 11:1 4 AM EDT Addenda Addendum by Mitul Moya MD on 11/10/2024 4:35 PM EDT 1 1 [facility] Heart Station [address] [place] [address] [phone] (fax) Lexiscan Stress Myocardial Perfusion Imaging- [facility] Name: JUAN GARCIA Study Date: 11/10/2024 11:14 AM B/P: / HR: Date of : 1990 Location: [facility] Height: 65 in. Age: 34 year(s) [...] Lexiscan Exercise Time: 03:02 Device: Treadmill HR [place] Used: 21.00 % HR Recovery: 2 bpm Frequent VE: 1 VE/min Resolution: Persisted Max HR: 98 bpm Target HR: 157 bpm Achieved: No Resting HR: 68 bpm Max Predicted HR: 185 bpm Achv. of Max Predicted: 52 % BP Max: 105/71 BP at Rest: 105/71 Max RPP: 65941 mmHg*bpm Max ST Lead: III Max ST Phase: Infusion Stage No. in Phase: [address] Stage: INFUS2:[address] Amplitude: -0.[address] [place]: -0.670 mV/s Max ST Time in Phase: [...] 1.00 mets 67 bpm 105/71 0.250 mm [id number] 00:30 1.00 mets 90 bpm 102/70 0.400 [...] 4 - Aneurysmal Procedure Staff Reading Group: [facility] Referring Physician: BRITT ALAS Stress Eyelet Maker: [place]son [place] Finisher Polisher: Lauren Sanchez Ordering Physician: SEBASTIAN PEÑA Advanced Practitioner: CRISTINA Gibson Nurse: Evelyne Abrams Narrative 11/10/2024 4:35 PM EDT 1 1 [facility] Heart Station [id number] [phone] (fax) Lexiscan Stress Myocardial Perfusion Imaging- [facility] Name: JUAN GARCIA Study Date: 11/10/2024 11:14 AM B/P: / HR: Date of : 1990 Location: [facility] Height: 65 in. Age: 34 year(s) [...] Lexiscan Exercise Time: 03:02 Device: Treadmill HR [place] Used: 21.00 % HR Recovery: 2 bpm Frequent VE: 1 VE/min Resolution: Persisted Max HR: 98 bpm Target HR: 157 bpm Achieved: No Resting HR: 68 bpm Max Predicted HR: 185 bpm Achv. of Max Predicted: 52 % BP Max: 105/71 BP at Rest: 105/71 Max RPP: 32772 mmHg*bpm Max ST Lead: III Max ST Phase: Infusion Stage No. in Phase: [address] Stage: INFUS2:[address] Amplitude: -0.[address] [place]: -0.670 mV/s Max ST Time in Phase: [...] 1.00 mets 67 bpm 105/71 0.250 mm [id number] 00:30 1.00 mets 90 bpm 102/70 0.400 [...] 4 - Aneurysmal Procedure Staff Reading Group: [facility] Referring Physician: BRITT ALAS Stress Eyelet Maker: [place] Finisher Polisher: Lauren Sanchez Ordering Physician: SEBASTIAN PEÑA Advanced Practitioner: CRISTINA Gibson Nurse: Evelyne Abrams Resting Perfusion Procedure Note Mitul Moya MD - 11/10/2024 1 1 [facility] Heart Station [id number] [phone] (fax) Lexiscan Stress Myocardial Perfusion Imaging- [facility] Name: JUAN GARCIA Study Date: 11/10/2024 11:14 AM B/P: / HR: Date of : 1990 Location: [facility] Height: 65 in. Age: 34 year(s) [...] Lexiscan Exercise Time: 03:02 Device: Treadmill HR [place] Used: 21.00 % HR Recovery: 2 bpm Frequent VE: 1 VE/min Resolution: Persisted Max HR: 98 bpm Target HR: 157 bpm Achieved: No Resting HR: 68 bpm Max Predicted HR: 185 bpm Achv. of Max Predicted: 52 % BP Max: 105/71 BP at Rest: 105/71 Max RPP: 46640 mmHg*bpm Max ST Lead: III Max ST Phase: Infusion Stage No. in Phase: [address] Stage: INFUS2:[address] Amplitude: -0.[address] [place]: -0.670 mV/s Max ST Time in Phase: [...] 1.00 mets 67 bpm 105/71 0.250 mm [id number] 00:30 1.00 mets 90 bpm 102/70 0.400 [...] 4 - Aneurysmal Procedure Staff Reading Group: [facility] Referring Physician: BRITT ALAS Stress Eyelet Maker: [place] Finisher Polisher: Lauren Sanchez Ordering Physician: SEBASTIAN PEÑA Advanced Practitioner: CRISTINA Gibson Nurse: Evelyne Abrams Resting Perfusion us Sebastian Peña MD CV STRESS PROCEDURES Edited Res ult - Final * (ABNORMAL) CBC auto differential (11/09/2024 2:09 PM EDT) Only the most recent of3 resultswithin the time period is included. Auto WBC 5.31 4.00 - 10.60 10*3/uL 11/09/2024 2:40 PM EDT [facility] ([facility]) RBC 3.22(L) 3.80 - 5.00 10*6/uL 11/09/2024 2:40 PM EDT [facility] ([facility]) Hemoglobin 9.6(L) 12.0 - 15.0 g/dL 11/09/2024 2:40 PM EDT [facility] ([facility]) Hematocrit 28.6(L) 36.0 - 45.0 % 11/09/2024 2:40 PM EDT [facility] ([facility]) MCV 88.8 82.0 - 98.0 fL 11/09/2024 2:40 PM EDT [facility] ([facility]) MCH 29.8 27.0 - 33.0 pg 11/09/2024 2:40 PM EDT [facility] ([facility]) MCHC 33.6 32.0 - 35.0 g/dL 11/09/2024 2:40 PM EDT [facility] ([facility]) RDW 14.5 11.5 - 15.0 % 11/09/2024 2:40 PM EDT [facility] ([facility]) Neutrophils % 68.7 40.0 - 72.0 % 11/09/2024 2:40 PM EDT [facility] ([facility]) Lymphocytes % 20.0 20.0 - 45.0 % 11/09/2024 2:40 PM EDT [facility] ([facility]) Monocytes % 7.9 5.0 - 12.0 % 11/09/2024 2:40 PM EDT [facility] ([facility]) Eosinophils % 2.6 0.0 - 6.0 % 11/09/2024 2:40 PM EDT [facility] ([facility]) Basophils % 0.6 0.0 - 1.0 % 11/09/2024 2:40 PM EDT [facility] ([facility]) Neutrophils Absolute 3.65 1.60 - 7.60 10*3/uL 11/09/2024 2:40 PM EDT [facility] ([facility]) Lymphocytes Absolute 1.06(L) 1.20 - 4.00 10*3/uL 11/09/2024 2:40 PM EDT [facility] ([facility]) Monocytes Absolute 0.42 0.10 - 1.00 10*3/uL 11/09/2024 2:40 PM EDT [facility] ([facility]) Eosinophils Absolute 0.14 0.00 - 0.50 10*3/uL 11/09/2024 2:40 PM EDT [facility] ([facility]) Basophils Absolute 0.03 0.00 - 0.20 10*3/uL 11/09/2024 2:40 PM EDT [facility] ([facility]) Platelets 262 150 - 400 10*3/uL 11/09/2024 2:40 PM EDT [facility] ([facility]) nRBC % 0.0 0 % 11/09/2024 2:40 PM EDT [facility] [facility]) Immature Granulocytes % 0.2 0.0 - 1.0 % 11/09/2024 2:40 PM EDT [facility] ([facility]) Immature Granulocytes Absolute 0.01 0.00 - 0.20 10*3/uL 11/09/2024 2:40 PM EDT [facility] ([facility]) Blood Venous blood specimen / Unknown Existing Catheter / Unknown 11/09/2024 2:09 PM EDT 11/09/2024 2:15 PM EDT us Shanna Lamas DO LAB BLOOD ORDERABLES Final Result [facility]) [address] [place] [address] * Phosphorus (11/07/2024 4:50 AM EDT) Only the most recent of7 resultswithin the time period is included. Phosphorus 4.7 2.5 - 5.0 mg/dL 11/07/2024 5:52 AM EDT [facility]) Blood Venous blood specimen / Unknown Existing Catheter / Unknown 11/07/2024 4:50 AM EDT 11/07/2024 5:24 AM EDT us Rosa Willoughby PA-C LAB BLOOD ORDERABLES Final R esult [facility]) [address] [place] [address] * Calcium, ionized (11/07/2024 4:50 AM EDT) Only the most recent of5 resultswithin the time period is included. Calcium, Ion 1.16 1.15 - 1.33 mmol/L 11/07/2024 5:43 AM EDT [facility] RES[facility]AT[facility]ERAPY Blood Venous blood specimen / Unknown Existing Catheter / Unknown 11/07/2024 4:50 AM EDT 11/07/2024 5:38 AM EDT us Eduarda Bravo PA-C LAB BLOOD ORDERABLES Final Resu lt [facility] RESPIRATORY THERAPY [address] [place] [address], [place] * Vasc Us Lower Extremity Pseudoaneurysm [...] 15.0 g/dL 11/05/2024 9:24 AM EDT [facility] ([place]) Hematocrit 27.5(L) 36.0 - 45.0 % 11/05/2024 9:24 AM EDT [facility] ([place]) Blood Venous blood specimen / Unknown Existing Catheter / Unknown 11/05/2024 9:01 AM EDT 11/05/2024 9:09 AM EDT us Tomasa Disla MD LAB BLOOD ORDERABLES Fin al Result [facility] ([facility]) [address] [place] [address] * Transfuse RBC (11/04/2024 4:57 PM EDT) [...] above Electronically signed: Raegan Quinn. us Mikayla GONZALEZC IMG CT PROCEDURES Final Resul t * HEPTEM C (11/03/2024 1:58 AM EDT) HEPTEM C CLOTTING TIME 168 141 - 215 s 11/03/2024 1:58 AM EDT [facility] RESPIRATORY THERAPY HEPTEM C AMPLITUDE 5 MIN 46 33 - 51 mm 11/03/2024 1:58 AM EDT [facility] RESPIRATORY THERAPY HEPTEM C AMPLITUDE 10 MIN 56 44 - 61 mm 11/03/2024 1:58 AM EDT [facility] RESPIRATORY THERAPY HEPTEM C AMPLITUDE 20 MIN 62 52 - 67 mm 11/03/2024 1:58 AM EDT [facility] RESPIRATORY THERAPY HEPTEM C MAXIMUM CLOT FIRMNESS 63 54 - 69 mm 11/03/2024 1:58 AM EDT [facility] RESPIRATORY THERAPY Blood 11/03/2024 1:58 AM EDT 11/03/2024 1:58 AM EDT Ky Barbour MD LAB BLOOD ORDERABLES Final Re sult [facility] RESPIRATORY THERAPY [address] [place] [address], [place] * FIBTEM C (11/03/2024 1:58 AM EDT) FIBTEM C AMPLITUDE 5 MIN 12 5 - 16 mm 11/03/2024 1:58 AM EDT [facility] RESPIRATORY THERAPY FIBTEM C AMPLITUDE 10 MIN 13 6 - 17 mm 11/03/2024 1:58 AM EDT [facility] RESPIRATORY THERAPY FIBTEM C AMPLITUDE 20 MIN 14 6 - 18 mm 11/03/2024 1:58 AM EDT [facility] RESPIRATORY THERAPY FIBTEM C MAXIMUM CLOT FIRMNESS 15 6 - 19 mm 11/03/2024 1:58 AM EDT [facility] RES[facility]IR[facility]ERAP[facility] Blood 11/03/2024 1:58 AM EDT 11/03/2024 1:58 AM EDT us Ky Barobur MD LAB BLOOD ORDERABLES Final Re sult Performing Organization Address [facility] Co de Phone Number [facility] RESPIRATORY THERAPY [address] [place] [address], [place] * (ABNORMAL) EXTEM C (11/03/2024 1:58 AM EDT) EXTEM C CLOTTING TIME 51 51 - 73 s 11/03/2024 1:58 AM EDT [facility] RESPIRATORY THERAPY EXTEM C AMPLITUDE 5 MIN 52 33 - 52 mm 11/03/2024 1:58 AM EDT [facility] RESPIRATORY THERAPY EXTEM C AMPLITUDE 10 MIN 61 45 - 62 mm 11/03/2024 1:58 AM EDT [facility] RESPIRATORY THERAPY EXTEM C AMPLITUDE 20 MIN 67 54 - 69 mm 11/03/2024 1:58 AM EDT [facility] RESPIRATORY THERAPY EXTEM C MAXIMUM CLOT FIRMNESS 68 57 - 72 mm 11/03/2024 1:58 AM EDT [facility] RESPIRATORY THERAPY EXTEM C LYSIS INDEX 60 MIN 96 94 - 100 % 11/03/2024 1:58 AM EDT [facility] RESPIRATORY THERAPY EXTEM C MAXIMUM LYSIS 10(H) 0 - 6 % 11/03/2024 1:58 AM EDT [facility]PIR[facility]ORY THERAPY Comment:SD^Preliminary Resul t Blood 11/03/2024 1:58 AM EDT 11/03/2024 1:58 AM EDT us Ky Barbour MD LAB BLOOD ORDERABLES Final Re sult Performing Organization Address [facility] Co de Phone Number [facility] RESPIRATORY THERAPY [address] [place] [address], [place] * (ABNORMAL) INTEM C (11/03/2024 1:58 AM EDT) INTEM C CLOTTING TIME 169 139 - 205 s 11/03/2024 1:58 AM EDT [facility] RESPIRATORY THERAPY INTEM C AMPLITUDE 5 MIN 48 36 - 54 mm 11/03/2024 1:58 AM EDT [facility] RESPIRATORY THERAPY INTEM C AMPLITUDE 10 MIN 57 46 - 63 mm 11/03/2024 1:58 AM EDT [facility] RESPIRATORY THERAPY INTEM C AMPLITUDE 20 MIN 63 53 - 68 mm 11/03/2024 1:58 AM EDT [facility] RESPIRATORY THERAPY INTEM C MAXIMUM CLOT FIRMNESS 63 55 - 70 mm 11/03/2024 1:58 AM EDT [facility] RESPIRATORY THERAPY INTEM C LYSIS INDEX 60 MIN 95 93 - 100 % 11/03/2024 1:58 AM EDT [facility] RESPIRATORY THERAPY INTEM C MAXIMUM LYSIS 12(H) 0 - 7 % 11/03/2024 1:58 AM EDT [facility] RES[facility]ERAPY Comment:SD^Preliminary Resul t Blood 11/03/2024 1:58 AM EDT 11/03/2024 1:58 AM EDT us Ky Barbour MD LAB BLOOD ORDERABLES Final Re sult [facility] RESPIRATORY THERAPY [address] [place] [address], * (ABNORMAL) Protime-INR (11/03/2024 12:07 AM EDT) Only the most recent of2 resultswithin the time period is included. Protime 14.9(H) 12.3 - 14.8 Seconds 11/03/2024 12:53 AM EDT [facility] ([place]) INR 1.17(H) 0.90 - 1.10 11/03/2024 12:53 AM EDT [facility] ([place]) Comment: [facility] RECOMMENDED INR FOR WARFARIN THERAPY [...] ORDERABLES Final Resu lt Performing Organization Address City/[facility]/ZIP Co de Phone Number [facility]) [address] [place] [address] * Fibrinogen (11/03/2024 12:07 AM EDT) Fibrinogen 328 150 - 425 mg/dL 11/03/2024 12:53 AM EDT [facility] ([facility]) Blood Venous blood specimen / Unknown Existing Catheter / Unknown 11/03/2024 12:07 AM EDT 11/03/2024 12:27 AM EDT Jose Angel Fox MD LAB BLOOD ORDERABLES Final Resu lt Performing Organization Address City/[facility]/ZIP Co de Phone Number [facility]) [address] [place] [address] * SD AN ELECTIVE ENDOTRACHEAL AIRWAY (11/02/2024 8:56 PM EDT) Tarik Dave CAA - 11/02/2024 8:56 PM EDT [place] Nair 11/02/2024 9:06 PM Airway Date/Time: 11/02/2024 8:56 PM Reason: elective Airway not difficult General Information and Staff Patient location during procedure: [place] Anesthesiologist: David Reyes MD Resident/SHANK SORTER/CAA: [place] Nair Performed: resident/SHANK SORTER/[place] Patient Condition Indications for airway management: anesthesia [...] the time period is included. PRODUCT CODE [id number] [facility] Unit Number [id number] [facility] Unit ABO O [facility] Unit Rh POS [facility] Crossmatch Interpretation COMP [facility] Dispense Status TR [facility] Blood Expiration Date [id number] [facility] Product Blood Type 5100 [facility] Unit Volume 300 ML [facility] BLO OD B[facility] Other 11/02/2024 8:05 PM EDT us Tomasa Disla MD BLOOD BANK PRODUCT ORDER JIN Final Result [facility] B[facility]OD [facility] * Type and screen (11/02/2024 8:02 PM EDT) ABO Grouping O 11/02/2024 8:42 PM EDT [facility] Rh Type POS 11/02/2024 8:42 PM EDT [facility] Ab Scrn NEG 11/02/2024 8:42 PM EDT [facility] Blood Venous blood specimen / Unknown Existing Catheter / Unknown 11/02/2024 8:02 PM EDT 11/02/2024 8:02 PM EDT Wali Collins MD LAB BLOOD BANK TEST ORDERA BLES Final Result Performing Organization Address City/[facility]/ZIP Co de Phone Number [facility] BLOOD [facility] * Red Top (11/02/2024 8:00 PM EDT) Extra Tube Hold for add-ons. 11/02/2024 10:02 PM EDT [facility] ([facility]) Comment:Auto resulted. Blood Venous blood specimen / Unknown 11/02/2024 8:00 PM EDT 11/02/2024 8:19 PM EDT Ky Barbour MD LAB BLOOD ORDERABLES Final Re sult Performing Organization Address [facility] Co de Phone Number [facility] ([facility]) [address] [place] [address] * (ABNORMAL) Activated clotting time (11/02/2024 4:43 PM EDT) Only the most recent of7 resultswithin the time period is included. Activated Clotting Time 176(H) 82 - 152 s 11/02/2024 5:54 PM EDT [facility] ([facility]) Blood Venous blood specimen / Unknown 11/02/2024 4:43 PM EDT 11/02/2024 5:54 PM EDT Ky Barbour MD LAB POINT OF CARE TE ST DOCKED DEVICE UNSOLICITED RESULTS Final Result Performing Organization Address [facility] Co de Phone Number [facility]) [address] [place] [address] * (ABNORMAL) POCT activated clotting time manually resulted (11/02/2024 4:40 PM EDT) Only the most recent of2 resultswithin the time period is included. Activated Clotting Time POC 176(A) 82 - 152 sec Blood Venous blood specimen / Unknown 11/02/2024 4:40 PM EDT Ky Barbour MD POINT OF CARE TEST [...] infiltrated over the right femoral artery. A 6-Gambian sheath was placed in right femoral artery. Coronary angiography was performed with a JL4 and then repeated after IC nitroglycerin 50 mcg x 2. At this time, it was apparent that the LAD had a moderate stenosis and IVUS and iFR were performed. Heparin anticoagulation was used for this procedure. ACT was maintained at >250 seconds. A 6 Gambian xb3 was engaged to the [place]. I [...] Green Top (11/02/2024 6:15 AM EDT) Pathologist [facility] Extra Tube Hold for add-ons. 11/02/2024 8:01 AM EDT [facility] ([facility]) Comment:Auto resulted. Blood Venous blood specimen / Unknown Existing Catheter / Unknown 11/02/2024 6:15 AM EDT 11/02/2024 6:38 AM EDT us Ky Barbour MD LAB BLOOD ORDERABLES Final Re sult Performing Organization Address City/[facility]/ZIP Co de Phone Number [facility]) [address] [place] [address] * (ABNORMAL) POCT activated clotting time docked device (11/01/2024 4:33 PM EDT) Activated Clotting Time POC 160(A) 82 - 152 sec [facility] ([facility]) Blood 11/01/2024 4:33 PM EDT us Ky Barbour MD LAB POINT OF CARE TEST DOCKED DEVICE ORDERABLES Final Result Performing Organization Address City/[facility] Co de Phone Number [facility]) [address] [place] [address] * CORONARY ANGIOGRAPHY, ULTRASOUND - CORONARY (11/01/2024 [...] on TPN presents a direct admission from [place] with chief complaint of chest pain. She [...] infiltrated over the right femoral artery. A 5-Gambian Terumo sheath was placed in right femoral [...] was maintained at >250 seconds. A 5 Gambian Cordis XB 3.0 guide was engaged to the left main. I decided to proceed with IVUS. I then advanced a Runthrough wire to the distal left anterior descending. Next, I advanced a Rexter IVUS catheter. IVUS imaging was performed and [...] with very small caliber Study Details NSTEMI Ky Barbour MD CV CARDIAC CATH PROCEDURES Fi nal Result * (ABNORMAL) Anti-Xa (Heparin Level) (11/01/2024 6:04 AM EDT) Only the most recent of4 resultswithin the time period is included. Anti-Xa (Heparin) 0.27(L) 0.3 - 0.7 IU/mL 11/01/2024 6:37 AM EDT [facility] ([facility]) Comment:Rivaroxaban and Apix aban will interfere with the anti Xa assay used to monitor UFH and LMWH. Blood Blood sample taken from central line / Unknown Existing Catheter / Unknown 11/01/2024 6:04 AM EDT 11/01/2024 6:15 AM EDT Ky Barbour MD LAB BLOOD ORDERABLES Final Re sult [facility] ([place]) [address] [place] [address] * (ABNORMAL) Toxicology Screen, Urine (11/01/2024 2:12 AM EDT) Barbiturates Negative Negative 11/01/2024 2:57 AM EDT [facility] ([facility]) Benzodiazepines Positive(A) Negative 11/02/19 2:57 AM EDT [facility] ([facility]) Propoxyphene Negative Negative 11/01/2024 2:57 AM EDT [facility] ([facility]) Methadone Negative Negative 11/01/2024 2:57 AM EDT [facility] ([facility]) Tricyclics Negative Negative 11/01/2024 2:57 AM EDT [facility] ([facility]) Phencyclidine Negative Negative 11/01/2024 2:57 AM EDT [facility] ([facility]) Opiates Positive(A) Negative 11/01/2024 2:57 AM EDT [facility] ([facility]) Cocaine Negative Negative 11/01/2024 2:57 AM EDT [facility] ([facility]) Amphetamines/Metha mphetamine Negative Negative 11/01/2024 2:57 AM EDT [facility] ([facility]) Cannabinoid Negative Negative 11/01/2024 2:57 AM EDT [facility] ([facility]) Urine Urine specimen obtained by clean catch procedure / Unknown Non-blood Collection / Unknown 11/01/2024 2:12 AM EDT 11/01/2024 2:18 AM EDT Narrative [facility] ([facility]) - 11/01/2024 2:57 AM EDT Unconfirmed screening results should only be used for medical purposes. us Ky Barbour MD LAB URINE ORDERABLES Final Re sult [facility] ([facility]) [address] [place] [address] * CORONARY ANGIOGRAPHY, LEFT HEART [...] informed consent. she was brought to the mechanical laboratory technician in a fasting state. The left wrist area was prepped and draped in usual fashion. Micropuncture technique was used for access in the radial artery. A 5-Gambian x 11 cm sheath was placed. Verapamil was given through the sheath, and heparin was administered intravenously. A 5 Gambian JR4 diagnostic catheter was advanced and this [...] catheter was then downsized to a 4 Gambian JR4 diagnostic catheter however this also was not able to engage the right coronary artery. Catheter was exchanged to a JR4 diagnostic catheter which could not engage the left coronary artery. Catheter was exchanged to a 4 Gambian JL 3.5 diagnostic catheter which eventually was able to engage the left coronary artery. Angiography was performed in multiple views. Catheter was exchanged over the wire to a 4 Gambian 3DRC catheter. Multiple attempts were made to [...] Study Details NSTEMI (non-ST elevated myocardial infarction) ([facility]) [I21.4] us Ky Barbour MD CV CARDIAC CATH PROCEDURES Fi nal Result * LIMITED ECHO (TTE) W/ COLOR FLOW AND IMAGING AGENT (10/31/2024 11:40 AM EDT) Anatomical Region Laterality Modality Other 10/31/2024 11:1 6 AM EDT Narrative 10/31/2024 12:44 PM EDT 1 1 [facility] Heart Station [address] [place] [address] [phone] (fax) Echocardiogram-[facility] Name: JUAN GARCIA Study Date: 10/31/2024 11:16 AM B/P: 106 mmHg/67 mmHg HR: 70 bpm Date of : 1990 Location: [facility] Height: 66 in. Age: 34 [...] Procedure Staff Reading Group: [facility] Weatherizing Worker: DAVID Kearney, RDCS Ordering Physician: KY BARBOUR Wall Motion Scores -1 - hyperkinesia, 0 - not evaluated, 1 - normal, 2 - hypokinesia, 3 - akinesia, 4 - dyskinesia Procedure Note Mitul Moya MD - 10/31/2024 1 1 [facility] [address] [facility] [place] [address] [phone] (fax) Echocardiogram-[facility] Name: JUAN GARCIA Study Date: 10/31/2024 11:16 AM B/P: 106 mmHg/67 mmHg HR: 70 bpm Date of : 1990 Location: [facility] Height: 66 in. Age: 34 [...] Procedure Staff Reading Group: [facility] Weatherizing Worker: DAVID Kearney, RDCS Ordering Physician: KY BARBOUR Wall Motion Scores -1 - hyperkinesia, 0 - not evaluated, 1 - normal, 2 - hypokinesia, 3 - akinesia, 4 - dyskinesia Ky Barbour MD CV ECHO PROCEDURES Final Resu lt * Hemoglobin A1c (10/31/2024 6:27 AM EDT) [facility] Hemoglobin A1C 4.5 4.0 - 6.0 % 10/31/2024 1:13 PM EDT [facility] ([facility]) Estimated Average Glucose 82 mg/dL 10/31/2024 1:13 PM EDT [facility] ([place]) Blood Blood sample taken from central line / Unknown Existing Catheter / Unknown 10/31/2024 6:27 AM EDT 10/31/2024 7:01 AM EDT Ky Barbour MD LAB BLOOD ORDERABLES Final Re sult [facility] ([facility]) [address] [place] [address] * (ABNORMAL) Lipid panel (10/31/2024 6:27 AM EDT) Pathologist [facility] Triglycerides 84 <150 mg/dL 10/31/2024 9:31 AM EDT [facility] ([place]) Comment: TRIGLYCERIDE REFERENCE RANGE: 20 YEARS AND OLDER CARDIOVASCULAR RISK LESS THAN 150 mg/dL LOW RISK 150 TO 199 mg/dL BORDERLINE RISK 200 mg/dL AND GREATER HIGH RISK Cholesterol 116(L) 120 - 200 mg/dL 10/31/2024 9:31 AM EDT [facility] ([place]) LDL Calculated 56 0 - 160 mg/dL 10/31/2024 9:31 AM EDT [facility] ([facility]) HDL 43 23 - 92 mg/dL 10/31/2024 9:31 AM EDT [facility] ([facility]) Non HDL Cholesterol 73 10/31/2024 9:31 AM EDT [facility] ([facility]) Total VLDL-C 17 0 - 40 mg/dL 10/31/2024 9:31 AM EDT [facility] ([facility]) Cholesterol/HDL Ratio 2.7 mg/dL 10/31/2024 9:31 AM EDT [facility] ([facility]) Blood Blood sample taken from central line / Unknown Existing Catheter / Unknown 10/31/2024 6:27 AM EDT 10/31/2024 7:11 AM EDT Ky Barbour MD LAB BLOOD ORDERABLES Final Re sult Performing Organization Address City/[facility]/ZIP Co de Phone Number [facility]) [address] [place] [address] * TSH3 Reflex to FT4 (10/30/2024 7:11 PM EDT) TSH 3.46 0.34 - 5.60 mIU/L 10/30/2024 8:01 PM EDT [facility]) Blood Venous blood specimen / Unknown Existing Catheter / Unknown 10/30/2024 7:11 PM EDT 10/30/2024 7:18 PM EDT Debbie Luna CNP LAB BLOOD ORDERABLES Final Resu lt Performing Organization Address City/[facility]/ZIP Co de Phone Number [facility]) [address] [place] [address] * (ABNORMAL) aPTT - baseline (10/30/2024 7:11 PM EDT) aPTT 42.0(H) 25.0 - 35.0 Seconds 10/30/2024 7:48 PM EDT [facility]) Comment:Clinical significanc e of the APTT is questionable in the presence of heparin. Blood Venous blood specimen / Unknown Existing Catheter / Unknown 10/30/2024 7:11 PM EDT 10/30/2024 7:18 PM EDT [facility] LAB BLOOD ORDERABLES Final Resu lt Performing Organization Address City/[facility]/ZIP Co de Phone Number [facility]) [address] [place], [place] [id number] * B-type natriuretic peptide (10/30/2024 7:11 PM EDT) BNP 77 0 - 100 pg/mL 10/30/2024 7:49 PM EDT [facility] ([facility]) Blood Venous blood specimen / Unknown Existing Catheter / Unknown 10/30/2024 7:11 PM EDT 10/30/2024 7:18 PM EDT [facility] LAB BLOOD ORDERABLES Final Resu lt Performing Organization Address City/[facility]/ZIP Co de Phone Number [facility] ([facility]) [address] [place] [address] * (ABNORMAL) Comprehensive metabolic panel (10/30/2024 7:11 PM EDT) Sodium 139 136 - 145 mmol/L 10/30/2024 7:46 PM EDT [facility] ([facility]) Potassium 3.7 3.5 - 5.1 mmol/L 10/30/2024 7:46 PM EDT [facility] ([facility]) Chloride 110(H) 98 - 107 mmol/L 10/30/2024 7:46 PM EDT [facility] ([facility]) CO2 23 21 - 31 mmol/L 10/30/2024 7:46 PM EDT [facility] ([facility]) Anion Gap 10 7 - 20 mmol/L 10/30/2024 7:46 PM EDT [facility] ([facility]) BUN 5(L) 7 - 25 mg/dL 10/30/2024 7:46 PM EDT [facility] ([facility]) Creatinine 0.64 0.60 - 1.20 mg/dL 10/30/2024 7:46 PM [facility] ([facility]) BUN/Creatinine Ratio 7.8 10/16 7:46 PM [facility] ([facility]) Glucose 101(H) 70 - 100 mg/dL 10/30/2024 7:46 PM [facility] ([facility]) Calcium 7.8(L) 8.6 - 10.3 mg/dL 10/30/2024 7:46 PM [facility] ([facility]) AST 19 13 - 39 U/L 10/30/2024 7:46 PM [facility] ([facility]) ALT (SGPT) 7 7 - 52 U/L 10/30/2024 7:46 PM [facility] ([facility]) Alkaline Phosphatase 45 34 - 104 U/L 10/30/2024 7:46 PM [facility] ([facility]) Total Protein 5.0(L) 6.0 - 8.3 g/dL 10/30/2024 7:46 PM [facility] ([facility]) Albumin 3.2(L) 3.5 - 5.7 g/dL 10/30/2024 7:46 PM [facility] ([facility]) Total Bilirubin 0.2(L) 0.3 - 1.0 mg/dL 10/30/2024 7:46 PM [facility] ([facility]) eGFR 118.1 >60.0 mL/min/1. 73m*2 10/30/2024 7:46 PM [facility] ([facility]) Comment:[facility] s estimated glomerular filtration rate [...] 10/30/2024 7:18 PM EDT us Debbie Luna CNP LAB BLOOD ORDERABLES Final Resu lt [facility] J[facility]) [address] [place] [address] * CT abdomen pelvis w IV contrast [...] IMG CT PROCEDURES Edited Result - Final from Last 3 Months Insurance Advance Directives * Full Code (Latest Code Status on File) Date Activated Date Inactivated Comments 11/15/2024 8:05 PM 11/17/2024 4:42 PM * Full Code Date Activated Date Inactivated Comments 11/09/2024 12:31 PM 11/13/2024 4:34 PM * Full Code Date Activated Date Inactivated Comments 10/30/2024 7:14 PM 11/07/2024 7:10 PM * Full Code Date Activated Date Inactivated Comments 08/16/2024 9:21 PM 08/20/2024 5:55 PM Care Teams Process Control Technician Relationship Specialty Start Date End Date Britt Alas MD [address] [facility] [address] [address] PCP - General Family Medicine 08/17/24
--- OUTSIDE RECORDS SUMMARY | 2024-11-19 09:26 | XMS_ITS | Patient Health Record ---
Author Organization [facility] es Address [address] [place] [address] Care Team Providers Care Signal Technician Name Role Phone Ashley Bryson Primary Care Provider Christina Dominguez Unavailable Unavailable Reason For Referral No Information Encounters Encounter Location Date Provider Diagnosis [address] [address] 04/25/2024 Ashley Bryson Encounter for dental examination [...] End Date Dental [employer] DQ [address] [address] [place] [address] [id number] JUAN KONG Self - patient is the insured Dental Wrap [facility] [employer] [address] [place] [address] [id number] JUAN KONG Self - patient is the insured 5
--- OUTSIDE RECORDS SUMMARY | 2024-11-19 09:27 | XMS_ITS | Clinical Summary ---
Author Organization [facility] Address [address] [place] [address] Phone Care Team Providers Care City Jailer Name Role Phone Generic Provider, No Assigned [...] 03/05/2023 RICHAR (obstructive sleep apnea) 03/05/2023 Asthma ([facility]) 03/05/2023 Anxiety 03/05/2023 Osteoarthritis 03/05/2023 Depression 03/05/2023 Median arcuate ligament syndrome 02/18/2023 Encounters Date Type Department Care Team Description 10/10/2024 11:00 AM EDT - 10/10/2024 11:59 PM EDT Hospital Encounter [facility] [address] [place] [address] Discharge Disposition: Home 10/09/2024 10:15 AM EDT [facility] [address] [place] [address] Jerad Magaña MD Median arcuate ligament syndrome (Primary Dx) Discharge Disposition: Home 10/06/2024 9:00 AM EDT Ancillary Procedure [facility] [address] [place] [address] Median arcuate ligament syndrome 09/18/2024 Orders Only [facility] [address] [place] [address] Crystal Monique RN Median arcuate ligament syndrome [...] from your doctor or pharmacy? Never 06/30/2023 [facility] Utilities Answer Date Recorded In the [...] you attend chur ch or rastafarian services? More than 4 times per year [...] Recorded Patient Health Questionnaire-2 Score 0 10/09/2024 [facility] of Occupat ional Health - Occupational Stress [...] in a detention (including now)? No 06/30/2023 AUDIT-C Answer Date [...] Description 12/05/2024 8:00 AM EDT Ancillary Procedure [facility] [address] [place] [address] Health Maintenance Due Date Last Done Comments [...] this topic Medical Devices Implanted Type Area Chemical Instrumentation Officer Device Identifier Shelf Expiration Date Model / Serial / Lot Membrane, Seprafilm, 5 X 6 In - [id number] Implanted:Qty : 1 on 03/05/2023 by Jerad Magaña MD at [facility] Implant N/A: Abdomen [employer] [id number] 10/02/2023 [id number] / / [id number] Procedures Procedure Name Priority Date/Time Associated Diagnosis [...] AM EDT Narrative 10/06/2024 1:59 PM EDT [place] [id number] Vascular Lab Report [facility] US MESENTERIC ARTERY DUPLEX COMPLETE Patient Name: JUAN KONG Reading Physician: [id number] Ann Rivera MD Study Date: 10/06/2024 Ordering Provider: [id number] JERAD MAGAÑA MRN/PID: [id number] Fellow: Technologist: Leia Degroot RVT Date of /Age: 2 1990 Technologist 2: years Gender: F Admission Status: Outpatient Location [facility] Performed: 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 CPT Codes: 95025 Mesenteric Duplex scan ` CONCLUSIONS: Mesenteric: Superior [...] 61 cm/s KEELY Prox PSV 118 cm/s 66971 Ann Rivera MD Final Procedure Note Ann Rivera MD, [place] - 10/06/[address] [address] Vascular Lab Report [facility] US MESENTERIC ARTERY DUPLEX COMPLETE Patient Name: JUAN KONG Reading Physician: [id number] Viera MD Study Date: 10/06/2024 Ordering Provider: [id number] BARNETT MRN/PID: [id number] Fellow: Technologist: Leia Taylor Date of /Age: 2 1990 Technologist 2: years Gender: F Admission Status: Outpatient Location [facility] Performed: 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 CPT Codes: 74479 Mesenteric Duplex scan ` CONCLUSIONS: Mesenteric: Superior [...] 61 cm/s KEELY Prox PSV 118 cm/s 65814 Ann Rivera MD Final Jerad Magaña MD CV VASCULAR PROCEDURES Final Re sult * (ABNORMAL) POCT GLUCOSE (07/03/2023 7:17 AM EDT) POCT Glucose 121(H) 74 - 99 mg/dL 07/03/2023 7:24 AM EDT [facility] Blood Capillary blood specimen / Unknown 07/03/2023 7:17 AM EDT 07/03/2023 7:24 AM EDT Kina Ann MD LAB POINT OF CARE TE ST DOCKED DEVICE UNSOLICITED RESULTS Final Result [facility] [address] [id number] * (ABNORMAL) Renal Function Panel (07/02/2023 6:47 AM EDT) Glucose 101(H) 65 - 99 mg/dL 07/02/2023 7:53 AM T [facility] Sodium 137 133 - 145 mmol/L 07/02/2023 7:53 AM T [facility] Potassium 3.9 3.4 - 5.1 mmol/L 07/02/2023 7:53 AM [facility] Chloride 103 97 - 107 mmol/L 07/02/2023 7:53 AM T [facility] Bicarbonate 23(L) 24 - 31 mmol/L 07/02/2023 7:53 AM [facility] Urea Nitrogen 13 8 - 25 mg/dL 07/02/2023 7:53 AM [facility] Creatinine 0.70 0.40 - 1.60 mg/dL 07/02/2023 7:53 AM [facility] eGFR >90 >60 mL/min/1.7 3m*2 07/02/2023 7:53 AM [facility] Comment: Calculations of estimated GFR are performed using the 2020 CKD-EPI Study Refit equation without the race variable for the IDMS-Traceable creatinine methods. https://jasn.asnjournals.org/content/early//ASN.8583382173 Calcium 8.6 8.5 - 10.4 mg/dL 07/02/2023 7:53 AM [facility] Phosphorus 4.0 2.5 - 4.5 mg/dL 07/02/2023 7:53 AM [facility] Albumin 4.0 3.5 - 5.0 g/dL 07/02/2023 7:53 AM [facility] Anion Gap 11 <=19 mmol/L 07/02/2023 7:53 AM [facility] Blood Venous blood specimen / Unknown 07/02/2023 6:47 AM EDT 07/02/2023 6:58 AM EDT Loreto Doty MD LAB BLOOD ORDERABLES F inal Result [facility] [address], [place] [id number] from Last 3 Months or Most Recently Relevant to Health Maintenance Insurance [employer] Member Subscriber Plan / Payer (Ef fective 2024-Present) Name:Juan Kong. Relation to Subscriber:Self Name:Juan Kong. Payer ID:[id number] (NAIC) Type:Not on file Address[address] [address] MEDICA[place] Advance Directives For more information, please contact: [phone] (Available ) * Full Code (Latest Code Status on File) Date Activated Date Inactivated Comments 03/05/2023 2:37 PM Question Answer Comments Plan of Care: Code Status Discussion Completed Decision Maker: Patient Care Teams City Jailer Relationship Specialty Start Date End Date Generic Provider, No Assigned Pcp, [place] [address] PCP - General Printed Forms Proofreader 06/29/23
--- OUTSIDE RECORDS SUMMARY | 2024-11-19 09:27 | XMS_ITS | Encounter Summary ---
Author Organization [facility] Address [address] [address] Care Team Providers Care Sharepoint [employer] Developer Name Role Phone Thomas Alas MD Primary Care Provider [phone] Encounter Details Date Type Department Care Team (Latest Contact Info) Description 11/15/2024 Travel Social History Tobacco Use Types Packs/Day Years Used Date Smoking Tobacco: Never Smokeless Tobacco: Never Alcohol Use Standard Drinks/Week Comments Not Currently 0 (1 standard drink = 0.6 oz pur e alcohol) [facility] Utilities Answer Date Recorded In [...] any time in the past 12 m [facility], were you homeless or living in a usp (including now)? No 11/15/2024 Hunger Vital Sign Answer Date Recorded Within the past 12 months, y ou worried that your food would run out before you got the money to buy more. Never true 11/16/19 Ran Out of Food in the Last [...] Question Answer Date of Assessment Author BP 106/42 11/15/2024 8:36 PM EDT Justine Pool RN Pulse 71 11/15/2024 8:36 PM EDT Justine Pool RN Heart Rate Source Monitor 11/15/2024 8:36 PM EDT Justine Kumar RN Patient Position Sitting 11/15/2024 8:36 PM EDT Justine Brock RN * Kiera Fall Risk Question Answer Date of Assessment Author History of Falling, Immediat e or Within 3 Months 0 11/15/2024 8:12 PM EDT Justine Kumar RN Secondary Diagnosis 15 11/15/2024 8:12 PM ED T Justine Kumar RN Ambulatory Aid 0 11/15/2024 8:12 PM EDT Justine Aviles RN Intravenous Therapy/Heparin Lock 0 11/16/19 25 8:12 PM EDT Justine Kuamr RN Gait/Transferring 0 11/15/2024 8:12 PM EDT Justine Kumar RN Mental Status 0 11/15/2024 8:12 PM EDT Justine Johnston RN Qureshi Fall Risk Score 15 11/15/2024 8:12 PM EDT Justine Kumar RN * Cyrus Scale Question Answer Date of Assessment Author Cyrus No Risk Interventions Continue to assess patient according to level of care 11/15/2024 8:07 PM EDT Justine Kumar RN Sensory Perceptions 4 11/15/2024 8:07 PM ED T Justine Kumar RN Moisture 4 11/15/2024 8:07 PM EDT Justine Pool RN Activity 4 11/15/2024 8:07 PM EDT Justine Pool RN Mobility 4 11/15/2024 8:07 PM EDT Justine Pool RN Nutrition 3 11/15/2024 8:07 PM EDT Justine Pool RN Friction and Shear 3 11/15/2024 8:07 PM EDT Justine Kumar RN Cyrus Scale Score 22 11/15/2024 8:07 PM EDT Justine Kumar RN * Patient's Stated Pain Goal Answer Date of Assessment Author No pain 11/15/2024 9:14 PM EDT Justine Kumar RN * Darien Fall Risk Interventions Question Answer Date of Assessment Author Darien Fall Risk Interventions Complete 11/15/2024 8:12 PM EDT Justine Kumar RN * Pain Assessment Timer Question Answer Date of Assessment Author Restart Pain Assessment Timer Yes 11/15/2024 10:14 PM EDT Justine Kumar RN * Sepsis Model Scores Question Answer Date of Assessment Author Early Detection of Sepsis Score 0.86 11:46 PM EDT Delano Guzman * Pain Assessment Question Answer Date of Assessment Author Pain Location Chest 11/15/2024 8:36 PM EDT Justine Johnston RN Pain Orientation Left 11/15/2024 8:36 PM EDT F Justine sibley RN Pain Interventions MD notified (Comment);Rest 11/15/2024 8:36 PM EDT Justine Kumar RN Pain Radiating Towards L shoulder 11/15/2024 8:36 PM EDT Justine Kumar RN Pain Descriptors Crushing;Discomfort; Pressure 11/15/2024 8:36 PM EDT Justine Kumar RN Pain Onset Ongoing 11/15/2024 8:36 PM EDT Justine Pool RN Pain Frequency Constant/continuous 11/15/2024 8:36 PM EDT Justine Kumar RN Response to Interventions improved 2024 10:14 PM EDT Justine Kumar RN Pain Type Acute pain 11/15/2024 8:36 PM EDT Justine Pool RN Clinical Progression Not changed 11/15/2024 8:36 PM E DT Justine Kumar RN Pain Score 3 11/15/2024 10:14 PM EDT Justine Kumar RN Pain Assessment 0-10 11/15/2024 8:36 PM EDT Justine Olguin RN * Audit Alcohol Screening Question Answer Date of Assessment Author How often do you have a drin k containing alcohol? 0 11/15/2024 8:13 PM EDT Maribel Merchant R N How many standard drinks con taining alcohol do you have on a typical day? No 11/15/2024 8:13 PM EDT Maribel Merchant R N How often do you have six or more drinks on one occasion? 0 11/15/2024 8:13 PM EDT Jalil Merchant RN Audit-C Score 0 11/15/2024 8:13 PM EDT Maribel Merchant RN * Patient Behaviors Answer Date of Assessment Author Agitated 11/15/2024 9:14 PM EDT Justine Kumar RN * Deterioration Index Score Question Answer Date of Assessment Author Deterioration Index Score 18.44 11/15/2024 11:4 6 PM EDT Chronicles, Batchq * Head, Ears, Eyes, Nose, and Throat (HEENT) Question Answer Date of Assessment Author Head, Ears, Eyes, Nose, and Throat (WDL) X 11/15/2024 8:07 PM EDT Justine Kumar RN R Eye Intact 11/15/2024 8:07 PM EDT Justine Pool RN L Eye Intact 11/15/2024 8:07 PM EDT Justine Pool RN R Ear Intact 11/15/2024 8:07 PM EDT Justine Pool RN L Ear Intact 11/15/2024 8:07 PM EDT Justine Pool RN Nose Intact 11/15/2024 8:07 PM EDT Justine Pool RN Throat Intact 11/15/2024 8:07 PM EDT Justine Pool RN Tongue Strand[place];Moist 11/15/2024 8:07 PM EDT Justine Pool RN Mucous Membrane(s) Moist;Strandquist;Intact 11/15/2024 8:07 P M EDT Justine Kumar RN Teeth Intact 11/15/2024 8:07 PM EDT Justine Pool RN Head and Face Symmetrical 11/15/2024 8:07 PM EDT Justine Johnston RN Neck Symmetrical 11/15/2024 8:07 PM EDT Justine Pool RN Lips Symmetrical 11/15/2024 8:07 PM EDT Justine Pool RN * Short Portable Mental Status Question Answer Date of Assessment Author What are the date, month, year? 0 8:12 PM EDT Justine Kumar RN What is the day of the week? 0 11/15/2024 8 :12 PM EDT Justine Kumar RN What is the name of this place? 0 8:12 PM EDT Justine Kumar RN What is your phone number? 0 11/15/2024 8:1 2 PM EDT Justine Kumar RN How old are you? 0 11/15/2024 8:12 PM EDT Justine Brock RN When were you born? 0 11/15/2024 8:12 PM ED T Justine Kumar RN Who is the current president? 0 11/15/2024 8:12 PM EDT Justine Kumar RN Who was the president before him? 0 025 8:12 PM EDT Justine Kumar RN What was your mother's sam n name? 0 11/15/2024 8:12 PM EDT Justine Kumar RN Can you count backward from 20 by 3s? 0 11/15/2024 8:12 PM EDT Justine Kumar RN Short Portable Mental Score 0 11/15/2024 8: 12 PM EDT Justine Kumar RN * Fall Risk Level Question Answer Date of Assessment Author Mobility zone Low (Green Zone) 11/15/2024 8:12 PM EDT Justine Kumar RN Qureshi fall risk zone Low (Green Zone) 11/15/2024 8:12 PM EDT Justine Kumar RN Mental status questionaire zone Low (Green Zone) 11/15/2024 8:12 PM EDT Justine Kumar RN * Skin Assessment Sign off Question Answer Date of Assessment Author Dual Sign-off - Admission/Transfer Sherine PRICE 11/15/2024 8:07 PM EDT Justine Kumar RN Any new wounds identified on admission/transfer? Yes 11/15/2024 8:07 PM EDT Justine Kumar RN Provider notified of new wound Yes 11/15/2024 8:07 PM EDT Justine Kumar RN * Vital Signs Question Answer Date of Assessment Author BP 106/42 11/15/2024 8:36 PM EDT Justine Pool RN Temp 97.9 11/15/2024 8:36 PM EDT Justine Pool RN Temp src Temporal 11/15/2024 8:36 PM EDT Justine Pool RN Pulse 71 11/15/2024 8:36 PM EDT Justine Pool RN Resp 16 11/15/2024 8:36 PM EDT Justine Pool RN SpO2 100 11/15/2024 8:36 PM EDT Justine Pool RN Heart Rate Source Monitor 11/15/2024 8:36 PM EDT Justine Kumar RN BP Location Right arm 11/15/2024 8:36 PM EDT Justine Pool RN BP Method Automatic 11/15/2024 8:36 PM EDT Justine Pool RN MAP (mmHg) 60 11/15/2024 8:36 PM EDT Justine Pool RN Patient Position Sitting 11/15/2024 8:36 PM EDT Justine Brock RN * Question Answer Date of Assessment Author Pulse rate from Plethysmogra m (bpm) 73 11/15/2024 8:07 PM EDT Justine Kumar RN * Question Answer Date of Assessment Author Swallow Able to swallow gina ds and liquids without difficulty 11/15/2024 8:07 PM EDT Justine Kumar RN * Question Answer Date of Assessment Author Bilateral Breath Sounds Clear 11/15/2024 8:07 P M EDT Justine Kumar RN Respiratory Pattern Normal 11/15/2024 8:07 PM ED T Justine Kumar RN Chest Assessment Chest expansion symmetrical 11/15/2024 8:07 PM EDT Justine Kumar RN Respiratory Effort Unlabored 11/15/2024 8:07 PM EDT Justine Kumar RN Respiratory Depth/Rhythm Regular 11/15/2024 8:07 PM EDT Justine uKmar RN Dyspnea Occurrence Lying flat 11/15/2024 8:07 PM EDT Justine Kumar RN * Question Answer Date of Assessment Author Cardiac Rhythm NSR 11/15/2024 8:07 PM EDT Justine Aviles RN Cardiac Regularity Regular 11/15/2024 8:07 PM JUNT Justine Kumar RN Mobile Battery Technician Status On 11/15/2024 8:07 PM EDT Justine Kumar RN Jugular Venous Distention (JVD) No 11/15/2024 8:07 PM EDT Justine Kumar RN Cardiac Symptoms Other (Comment) 11/15/2024 8:07 PM ED T Justine Kumar RN Heart Sounds S1, S2 11/15/2024 8:07 PM EDT Justine Pool RN * Gastrointestinal Question Answer Date of Assessment Author Passing Flatus Yes 11/15/2024 8:07 PM EDT Justine Kumar RN Abdominal Tenderness Soft;No guarding;Nontender 11/15/2024 8:07 PM EDT Justine Kumar RN Bowel Sounds (All Quadrants) Active 11/15/2024 8:07 PM EDT Justine Kumar RN Gastrointestinal (WDL) X 8:07 PM EDT Justine Kumar RN Abdomen Inspection Soft;Nondistended 11/15/2024 8:07 PM EDT Justine Kumar RN Gastrointestinal Symptoms None 2024 9:23 PM EDT Justine Kumar RN Nausea Precipitating Factors Movement 11/15/2024 9:23 PM EDT Justine Kumar RN Constipation Precipitating Factors Dehydration 11/15/2024 8:07 PM EDT Justine Kumar RN Bowel Sounds All quadrants 11/15/2024 8:07 PM EDT Justine Kumar RN * Peripheral Vascular Question Answer Date of Assessment Author Peripheral Vascular (WDL) X 11/15/2024 8:07 PM EDT Justine Kumar RN Capillary Refill Less than/equal to 2 seconds (All extremities) 11/15/2024 8:07 PM EDT Justine Kumar RN Pulses Left radial;Right radial;Right pedal;Left pedal 11/15/2024 8:07 PM EDT Justine Kumar RN Cyanosis None 11/15/2024 8:07 PM EDT Justine Pool RN Edema Right lower extremity;Left lower extremity 11/15/2024 8:07 PM EDT Justine Kumar RN * RUE Neurovascular Assessment Question Answer Date of Assessment Author Right Radial Pulse +3 11/15/2024 8:07 PM EDT Justine Kumar RN * LUE Neurovascular Assessment Question Answer Date of Assessment Author Left Radial Pulse +3 11/15/2024 8:07 PM EDT Justine Kumar RN * RLE Neurovascular Assessment Question Answer Date of Assessment Author RLE Edema Non-pitting 11/15/2024 8:07 PM EDT Justine Pool RN Right Pedal Pulse +2 11/15/2024 8:07 PM EDT Justine Kumar RN * LLE Neurovascular Assessment Question Answer Date of Assessment Author LLE Edema Non-pitting 11/15/2024 8:07 PM EDT Justine Pool RN Left Pedal Pulse +2 11/15/2024 8:07 PM EDT F Justine sibley RN * Musculoskeletal Question Answer Date of Assessment Author Musculoskeletal (WD) WD 11/15/2024 8:07 PM EDT Justine Kumar RN * Psychosocial Question Answer Date of Assessment Author Psychosocial ([facility]) [facility] 11/15/2024 8:07 PM EDT Justine Kumar RN * Qureshi Fall Risk Question Answer Date of Assessment Author History of Falling, Immediat e or Within 3 Months 0 11/15/2024 8:12 PM EDT Justine Kumar RN Secondary Diagnosis 15 11/15/2024 8:12 PM ED T Justine Kumar RN Ambulatory Aid 0 11/15/2024 8:12 PM EDT Justine Aviles RN Intravenous Therapy/Heparin Lock 0 11/16/19 25 8:12 PM EDT Justine Kumar RN Gait/Transferring 0 11/15/2024 8:12 PM EDT Justine Kumar RN Mental Status 0 11/15/2024 8:12 PM EDT Justine Johnston RN Qureshi Fall Risk Score 15 11/15/2024 8:12 PM EDT uJstine Kumar RN * Cyrus Scale Question Answer Date of Assessment Author Cyrus No Risk Interventions Continue to assess patient according to level of care 11/15/2024 8:07 PM EDT Justine Kumar RN Sensory Perceptions 4 11/15/2024 8:07 PM ED T Justine Kumar RN Moisture 4 11/15/2024 8:07 PM EDT Justine Pool RN Activity 4 11/15/2024 8:07 PM EDT Justine Pool RN Mobility 4 11/15/2024 8:07 PM EDT Justine Pool RN Nutrition 3 11/15/2024 8:07 PM EDT Justine Pool RN Friction and Shear 3 11/15/2024 8:07 PM EDT Justine Kumar RN Cyrus Scale Score 22 11/15/2024 8:07 PM EDT Justine Kumar RN * Charting Type Question Answer Date of Assessment Author Charting Type Admission 11/15/2024 8:07 PM EDT Justine Johnston RN * Patient's Stated Pain Goal Answer Date of Assessment Author No pain 11/15/2024 9:14 PM EDT Justine Kumar RN * Values/Beliefs Question Answer Date of Assessment Author Cultural Requests During Hospitalization none 11/15/2024 8:13 PM EDT Maribel Merchant R N Spiritual Requests During Hospitalization none 11/15/2024 8:13 PM EDT Maribel Merchant R N * Genitourinary Question Answer Date of Assessment Author Genitourinary (WDL) WDL 11/15/2024 8:07 PM ED T Justine Kumar RN * Patient Monitoring Question Answer Date of Assessment Author Frequency of Checks Twice per hour, standard 11/15/2024 8:12 PM EDT Justine Kumar RN * Safe Environment Question Answer Date of Assessment Author Chair Alarms On 11/15/2024 8:12 PM EDT Justine Pool RN Arm Bands On ID;Allergies 11/15/2024 8:12 PM EDT Justine Pool RN Side Rails/Bed Safety 2/4 11/15/2024 8:12 PM EDT Justine Kumar RN Bed Alarms On 11/15/2024 8:12 PM EDT Justine Pool RN The Patient's Environment is Safe Yes 11/15/2024 8:12 PM EDT Justine Kumar RN * Mobility Question Answer Date of Assessment Author Anti-Embolism Devices Bilateral;Sequenti al compression devices, below knee 11/15/2024 8:12 PM EDT Justine Kumar RN Anti-Embolism Intervention Off 11/15/2024 8:12 PM EDT Justine Kumar RN Positioning Frequency Able to turn self 11/16/19 25 8:12 PM EDT Justine Kumar RN * Hygiene Question Answer Date of Assessment Author CHG (Chlorhexidine Gluconate ) Hygiene Wipes 11/15/2024 10:38 PM EDT Justine Kumar , DEE * Precautions Question Answer Date of Assessment Author Precautions Bleeding 11/15/2024 8:12 PM EDT Justine Pool, DEE * ADL Screening Question Answer Date of [...] R N Dressing Independent 11/15/2024 8:12 PM EDMaribel Quintero RN Grooming Independent 11/15/2024 8:12 PM Maribel Cheng RN Feeding Independent 11/15/2024 8:12 PM Maribel Cheng RN Bathing Independent 11/15/2024 8:12 PM Maribel Cheng RN Toileting Independent 11/15/2024 8:12 PM Maribel Cheng RN In/Out Bed Independent 11/15/2024 8:12 PM Maribel Cheng RN Walks in Home Independent 11/15/2024 8:12 PM Maribel Cheng RN Weakness of Legs None 11/15/2024 8:12 PM JUNT Maribel Harley RN Weakness of Arms/Hands None 11/15/2024 8:12 PM Maribel Cheng RN Hearing - Right Ear Functional 11/15/2024 8:12 PM ED T Maribel Merchant RN Hearing - Left Ear Functional 11/15/2024 8:12 PM EDT Maribel Merchant RN Is Patient Total Care? No 11/15/2024 8:12 PM EDT Maribel Merchant RN Which is your dominant hand? Right 11/15/2024 8 :12 PM EDT Maribel Merchant RN * Consults Question Answer Date of Assessment Author Spiritual Care Consult Needed No 11/15/2024 8:13 PM EDT Maribel Merchant RN Social Services Consult Needed Yes (Comment) 11/15/2024 8:13 PM EDT Maribel Merchant R N Palliative Care Consult Needed No 11/15/2024 8:13 PM EDT Maribel Merchant R N * Therapy Consults Question Answer Date of Assessment Author PT Evaluation Needed 2 11/15/2024 8:12 PM E Maribel Song RN OT Evaluation Needed 2 11/15/2024 8:12 PM Maribel Andrews RN FURNACE TENDER Evaluation Needed 2 11/15/2024 8:12 PM EDT Maribel Merchant RN * Assistive Devices Question Answer Date of Assessment Author Assistive Devices Eyeglasses 11/15/2024 8:12 PM EDMaribel Quintero RN * Darien Fall Risk Interventions Question Answer Date of Assessment Author Darien Fall Risk Interventions Complete 11/15/2024 8:12 PM EDT Justine Kumar RN * Suicidal Ideation Question Answer Date of Assessment Author 1. Wish to be (Lifetime) No 11/15/2024 8:14 PM EDMaribel Quintero RN 2. Non-Specific Active Suici martha Thoughts (Lifetime) No 11/15/2024 8:14 PM EDT Maribel Merchant R N * Pain Assessment Question Answer Date of Assessment Author Pain Location Chest 11/15/2024 8:36 PM EDT Justine Johnston RN Pain Orientation Left 11/15/2024 8:36 PM EDT Justine Brock RN Pain Interventions MD notified (Comment);Rest 11/15/2024 8:36 PM EDT Justine Kumar RN Pain Radiating Towards L shoulder 11/15/2024 8:36 PM EDT Justine Kumar RN Pain Descriptors Crushing;Discomfort; Pressure 11/15/2024 8:36 PM EDT Justine Kumar RN Pain Onset Ongoing 11/15/2024 8:36 PM EDT Justine Pool RN Pain Frequency Constant/continuous 11/15/2024 8:36 PM EDT Justine Kumar RN Response to Interventions improved 2024 10:14 PM EDT Justine Kumar RN Pain Type Acute pain 11/15/2024 8:36 PM EDT Justine Pool RN Clinical Progression Not changed 11/15/2024 8:36 PM E Justine Samuels RN Pain Score 3 11/15/2024 10:14 PM EDT Justine Kumar RN Pain Assessment 0-10 11/15/2024 8:36 PM EDT Justine Olguin RN * Respiratory Interventions Question Answer Date of Assessment Author Respiratory Interventions Performed Cough and deep breathe 11/15/2024 8:07 PM EDT Justine Kumar RN * Cough and Deep Breathe Question Answer Date of Assessment Author Cough and Deep Breathe Yes 11/15/2024 8:07 PM EDT Justine Kumar RN * Integumentary Question Answer Date of Assessment Author Skin Color Appropriate for race 11/15/2024 8:07 PM E Justine Samuels RN Skin Condition/Temp Warm;Dry 11/15/2024 8:07 PM ED Justine Rasmussen RN Skin Integrity Other (Comment) 11/15/2024 8:07 PM EDT Justine Kumar RN Skin Turgor Non-tenting 11/15/2024 8:07 PM EDT Justine Pool RN Integumentary (WDL) X 11/15/2024 8:07 PM ED Justine Rasmussen RN * Audit Alcohol Screening Question Answer Date of Assessment Author How often do you have a drin k containing alcohol? 0 11/15/2024 8:13 PM EDT Maribel Merchant R N How many standard drinks con taining alcohol do you have on a typical day? No 11/15/2024 8:13 PM EDT Maribel Merchant R N How often do you have six or more drinks on one occasion? 0 11/15/2024 8:13 PM EDT Jalil Merchant RN Audit-C Score 0 11/15/2024 8:13 PM JUNT Maribel Merchant RN * Drug Screening Question Answer Date of Assessment Author Have you used any substances (canabis, cocaine, heroin, hallucinogens, inhalants, etc.) in the past 12 months? No 11/15/2024 8:13 PM EDT Maribel Merchant R N Have you used any prescripti on drugs other than prescribed in the past 12 months? No 11/15/2024 8:13 PM EDT Maribel Merchant R N * Patient Behaviors Answer Date of Assessment Author Agitated 11/15/2024 9:14 PM EDT Justine Kumar RN * Modified Malnutrition Screening Tool (MST) Question Answer Date of Assessment Author Have you recently lost weigh t without trying? 0 11/15/2024 8:13 PM EDT Maribel Merchant R N Have you been eating poorly because of a decreased appetite? 0 11/15/2024 8:13 PM EDT Asad Merchant RN On home tube feeding or TPN? 0 11/15/2024 8 :13 PM Maribel Cheng RN Does patient have a stage 2- 4 pressure ulcer? 0 11/15/2024 8:13 PM JUNT Maribel Merchant R N * Weight Loss Score Answer Date of Assessment Author 0 11/15/2024 8:13 PM JUNT Mireya Merchant RN * Malnutrition Score Answer Date of Assessment Author 0 11/15/2024 8:13 PM Mireya Cheng RN documented as of this encounter Plan of Treatment Upcoming Encounters Date Type Department Care Team (Late st Contact Info) Description 11/28/2024 11:00 AM EDT Follow-Up [facility] Cardiology [address] [place] [address] Wali Collins MD [address] [place] [address] 12/04/2024 10:00 AM EDT Office Visit [facility] [address] [place] [phone] Katie Altamirano MD [address] [facility] [place] [id number] documented as of this encounter Visit Diagnoses Not on filedocumented in this encounter Care Teams Sharepoint Solutions Developer Relationship Specialty Start Date End Date Thomas Alas MD [address] [facility] [address] [address] PCP - General Family Medicine 08/17/24 documented as of this encounter
--- OUTSIDE RECORDS SUMMARY | 2024-11-19 09:27 | XMS_ITS | Clinical Summary ---
Author Organization [facility] Address [address], [address] [place] [address] Care Team Providers Care Livestock Showman Name Role Phone Thomas Alas MD Primary Care Provider [phone] Allergies Active Allergy Reactions Criticality Noted Date Comments Adhesive Tape Other (See Comments) Medium 02/07/2020 Sensitive to certain adhesive tapes. Redness and itchy. Morphine And Codeine Nausea And Vomiting,Other (See Comments) Medium 07/07/2013 Pt states she can take morphine but is allergic to codeine. Nsaids Other (See Comments) 01/29/2022 Gastric bypass [...] 1 capsule by mouth 2 times daily Active liothyronine [...] every morning (before breakfast) 30 each 3 12/02/19 Active ondansetron (ZOFRAN-ODT) 4 MG disintegrating tablet Take 1 tablet by mouth 3 times daily as needed for Nausea or Vomiting 21 tablet 12/02/19 Active Additional Information Patient not taking.Reported on 11/08/2024 scopolamine (TRANSDERM-SCOP) transdermal patch Place 1 patch onto the skin every 72 hours 10 patch 12/05/19 Active Additional Information Patient not taking.Reported on 11/08/2024 acetaminophen (TYLENOL) 325 MG tablet Take 2 tablets by mouth every 6 hours as needed for Pain Active aspirin 81 MG chewable tablet Take 1 tablet by mouth daily Active clopidogrel (PLAVIX) 75 MG tablet Take 1 tablet by mouth daily Active HYDROcodone-acetam inophen (NORCO) 5-325 MG per tablet Take 2 tablets by mouth every 6 hours as needed for Pain. Active hydrOXYzine HCl (ATARAX) 25 MG tablet Take 1 tablet by mouth 3 times daily as needed for Itching (at night) Active metoprolol succinate (TOPROL XL) 25 MG extended release tablet Take 1 tablet by mouth daily Active traMADol (ULTRAM) 50 MG tablet Take 1 tablet by mouth every 6 hours as needed for Pain. Active hydrocortisone (CORTEF) 10 MG tablet Take 1 tablet by mouth daily 08/16/19 25 Active verapamil (CALAN) 40 MG tablet Take 1 tablet by mouth 11/08/19 25 025 Active traZODone (DESYREL) 100 MG tablet Take 1 tablet by mouth nightly Active sucralfate (CARAFATE) 1 GM tablet Take 1 tablet by mouth Active rosuvastatin (CRESTOR) 40 MG tablet Take 1 tablet by mouth nightly 11/08/19 25 025 Active ranolazine (RANEXA) 500 MG extended release tablet Take 1 tablet by mouth 2 times daily 11/14/19 25 026 Active Prucalopride Succinate (MOTEGRITY) 2 MG tablet Take 1 tablet by mouth daily Active metoclopramide (REGLAN) 10 MG tablet Take 1 tablet by mouth 2 times daily as needed 03/24/19 24 025 Active methocarbamol (ROBAXIN) 500 MG tablet Take 1.5 tablets by mouth 4 times daily Active metFORMIN, OSM, (FORTAMET) 500 MG extended release tablet Take 1 tablet by mouth 2 times daily (with meals) Active fentaNYL (DURAGESIC) 12 MCG/HR APPLY TO SKIN TRANSDERMALLY EVERY 3 DAYS WITH A 25MCG PATCH 11/07/19 25 Active Active Problems Problem Noted Date Diagnosed Date Intractable nausea and vomiting 11/28/2022 Encounters Date Type Department Care Team Description 11/15/2024 1:15 PM EDT - 11/15/2024 6:50 PM EDT Emergency [facility] Emergency Department [address] [place] [address] Jory Hurd DO Chest pain, unspecified type (Primary Dx) Discharge Disposition: Another Acute [facility] 11/15/2024 Travel 11/08/2024 12:31 PM EDT - 11/09/2024 8:42 AM EDT Emergency [facility] Emergency Department [address] [id number] Oc Graham MD Chest pain, unspecified type (Primary Dx) Discharge Disposition: [facility] 11/08/2024 Travel from Last 3 Months Social History [...] (180 lb) 11/15/2024 1:33 PM EDT Height 165.1 cm (5' 5 ) 11/08/2024 12:35 PM EDT Body Mass Index 29.95 11/08/2024 12:35 PM EDT Plan of Treatment Health Maintenance Due Date Last Done Comments Lipids 1999 Depression Screen 2001 Varicella vaccine (1 of 2 - 13+ 2-dose series) 2002 HIV screen 2004 Hepatitis C screen 2007 Hepatitis B vaccine (1 of 3 - 19+ 3-dose series) 2008 Diabetes screen 2024 Flu vaccine (#1) 09/15/2024 11/12/2022, 03/2021, 01/01/2021, Additional history exists COVID-19 Vaccine ( - season) 2024 02/18/2021, 06/23/2020 DTaP/Tdap/Td vaccine (2 [...] Comments TROPONIN STAT 11/15/2024 2:35 PM EDT APTT STAT 11/15/2024 1:25 PM EDT PROTIME-INR STAT 11/15/2024 1:25 PM EDT BRAIN NATRIURETIC PEPTIDE STAT 11/15/2024 1:25 PM EDT TROPONIN STAT 11/15/2024 1:25 PM EDT CBC WITH AUTO DIFFERENTIAL STAT 11/15/2024 1:25 PM EDT BASIC METABOLIC PANEL STAT 11/15/2024 1:25 PM EDT XR CHEST PORTABLE STAT 11/15/2024 1:2 4 PM EDT EKG 12-LEAD STAT 11/15/2024 1:19 PM EDT POCT GLUCOSE Routine 11/08/2024 11:06 PM EDT [...] WO CONTRAST STAT 11/08/2024 1:43 PM EDT PROTIME-INR STAT 11/08/2024 1:39 PM EDT APTT STAT 11/08/2024 1:39 PM EDT POCT CREATININE STAT 11/08/2024 1:16 PM EDT POCT VENOUS Routine 11/08/2024 1:14 PM EDT TROPONIN STAT 11/08/2024 12:50 PM EDT COMPREHENSIVE METABOLIC PANEL W/ REFLEX TO MG FOR LOW K STAT 11/08/2024 12:50 PM EDT CBC WITH AUTO DIFFERENTIAL STAT 11/08/2024 12:50 PM EDT POCT GLUCOSE Routine 11/08/2024 12:38 PM EDT EKG 12-LEAD Routine 11/08/2024 12:37 PM EDT from Last 3 Months Results * Troponin (11/15/2024 2:35 PM EDT) Only the most recent of4 resultswithin the time period is included. [facility] Troponin, High Sensitivity <6 0 - 14 ng/L 11/15/2024 2:35 PM EDT [facility] Comment:High Sensitivity Tro ponin values cannot be compared with other Troponin methodologies. Blood BLOOD SPECIMEN / Unknown 11/15/2024 2:35 PM EDT 11/15/2024 2:39 PM EDT Jory Hurd DO CHEMISTRY ORDERABLES Final Result [facility] [address] [place] [address] * (ABNORMAL) CBC with Auto Differential (11/15/2024 1:25 PM EDT) Only the most recent of2 resultswithin the time period is included. [facility] WBC 6.6 3.5 - 11.3 k/uL 11/15/2024 1:25 PM EDT [facility] RBC 3.03(L) 3.95 - 5.11 m/uL 11/15/2024 1:25 PM EDT [facility] Hemoglobin 9.1(L) 11.9 - 15.1 g/dL 11/15/2024 1:25 PM EDT [facility] Hematocrit 27.3(L) 36.3 - 47.1 % 11/15/2024 1:25 PM EDT [facility] MCV 90.1 82.6 - 102.9 fL 11/15/2024 1:25 PM EDT [facility] MCH 30.0 25.2 - 33.5 pg 11/15/2024 1:25 PM EDT [facility] MCHC 33.3 28.4 - 34.8 g/dL 11/15/2024 1:25 PM [facility] RDW 14.3 11.8 - 14.4 % 11/15/2024 1:25 PM [facility] Platelets 362 138 - 453 k/uL 11/15/2024 1:25 PM [facility] MPV 10.5 8.1 - 13.5 fL 11/15/2024 1:25 PM [facility] NRBC Automated 0.0 0.0 per 100 WBC 11/15/2024 1:25 PM [facility] Neutrophils % 81(H) 36 - 65 % 11/15/2024 1:25 PM [facility] Lymphocytes % 15(L) 24 - 43 % 11/15/2024 1:25 PM [facility] Monocytes % 4 3 - 12 % 11/15/2024 1:25 PM [facility] Eosinophils % 0(L) 1 - 4 % 11/15/2024 1:25 PM [facility] Basophils % 0 0 - 2 % 11/15/2024 1:25 PM [facility] Immature Granulocytes % 0 0 % 11/15/2024 1:25 PM [facility] Neutrophils Absolute 5.31 1.50 - 8.10 k/uL 11/15/2024 1:25 PM [facility] Lymphocytes Absolute 0.99(L) 1.10 - 3.70 k/uL 11/15/2024 1:25 PM [facility] Monocytes Absolute 0.27 0.10 - 1.20 k/uL 11/15/2024 1:25 PM [facility] Eosinophils Absolute <0.03 0.00 - 0.44 k/uL 11/15/2024 1:25 PM [facility] Basophils Absolute <0.03 0.00 - 0.20 k/uL 11/15/2024 1:25 PM [facility] Immature Granulocytes Absolute <0.03 0.00 - 0.30 k/uL 11/15/2024 1:25 PM EDT [facility] 11/15/2024 1:2 5 PM EDT 11/15/2024 1:29 PM EDT Jory Hurd HEMATOLOGY ORDERABLES Final Result Performing Organization Address [facility] [place] de Phone Number [facility] [address] [place] [address] * APTT (11/15/2024 1:25 PM EDT) Only the most recent of2 resultswithin the time period is included. APTT 27.8 23.1 - 33.7 sec 11/15/2024 1:25 PM EDT [facility] Comment: IV Heparin Therapy Range: 62.0-94.0 Blood BLOOD SPECIMEN / Unknown 11/15/2024 1:25 PM EDT 11/15/2024 1:49 PM EDT us Jory Hurd HEMATOLOGY ORDERABLES Final Result Performing Organization Address [facility] de Phone Number [facility] [address] [place] [address] * Protime-INR (11/15/2024 1:25 PM EDT) Only the most recent of2 resultswithin the time period is included. Protime 14.9 12.0 - 15.0 sec 11/15/2024 1:25 PM EDT [facility] INR 1.1 11/15/2024 1:25 PM EDT [facility] Comment: Therapeutic Range: Moderate Anticoagulant Intensity: INR = 2.0-3.0 High Anticoagulant Intensity: INR = 2.5-3.5 Blood BLOOD SPECIMEN / Unknown 11/15/2024 1:25 PM EDT 11/15/2024 1:49 PM EDT us Jory Hurd DO HEMATOLOGY ORDERABLES Final Result Performing Organization Address [facility] [place]/ZIP Co de Phone Number [facility] [address] [phone] * (ABNORMAL) Brain Natriuretic Peptide (11/15/2024 1:25 PM EDT) NT Pro-BNP 530(H) 0 - 125 pg/mL 11/15/2024 1:25 PM EDT [facility] Blood BLOOD SPECIMEN / Unknown 11/15/2024 1:25 PM EDT 11/15/2024 1:49 PM EDT us Jory Hurd DO CHEMISTRY ORDERABLES Final Result Performing Organization Address [facility] [place] Co de Phone Number [facility] [address] [place] [address] * (ABNORMAL) Basic Metabolic Panel (11/15/2024 1:25 PM EDT) Sodium 138 136 - 145 mmol/L 11/15/2024 1:25 PM EDT [facility] Potassium 3.9 3.7 - 5.3 mmol/L 11/15/2024 1:25 PM EDT [facility] Chloride 107 98 - 107 mmol/L 11/15/2024 1:25 PM EDT [facility] CO2 19(L) 20 - 31 mmol/L 11/15/2024 1:25 PM EDT [facility] Anion Gap 12 9 - 16 mmol/L 11/15/2024 1:25 PM EDT [facility] Glucose 103(H) 74 - 99 mg/dL 11/15/2024 1:25 PM EDT [facility] BUN 12 6 - 20 mg/dL 11/15/2024 1:25 PM EDT [facility] Creatinine 0.6 0.50 - 0.90 mg/dL 11/15/2024 1:25 PM EDT [facility] Est, Glom Filt Rate >90 >60 mL/min/1.7 3m2 11/15/2024 1:25 PM EDT [facility] Comment: These results are not intended [...] 9 - 20 11/15/2024 1:25 PM EDT [facility] Calcium 8.6 8.6 - 10.4 mg/dL 11/15/2024 1:25 PM EDT [facility] Blood BLOOD SPECIMEN / Unknown 11/15/2024 1:25 PM EDT 11/15/2024 1:29 PM EDT Jory Hurd DO CHEMISTRY ORDERABLES Final Result [facility] [address] [phone] * XR CHEST PORTABLE (11/15/2024 1:24 PM [...] Jory Hurd DO IMG DIAGNOSTIC IMAGING ORDE RABLES Final Result * EKG 12 Lead (11/15/2024 1:19 PM EDT) Only the most recent of3 resultswithin the time period is included. Pathologist [facility] Ventricular Rate 87 BPM [facility] Atrial Rate 87 BPM [facility] P-R Interval 150 ms [facility] QRS Duration 84 ms [facility] Q-T Interval 406 ms [facility] QTc Calculation (Bazett) 488 ms [facility] P Harrison 55 degrees [facility] R Harrison 32 degrees [facility] T Harrison 54 degrees [facility] 11/15/2024 1:19 PM EDT Narrative [facility] - 11/15/2024 6:59 PM EDT Normal sinus rhythm QTcB >= 480 msec Abnormal ECG No previous ECGs available Confirmed by Braxton Grey ([id number]) on 11/15/2024 6:59:27 PM Procedure Note Braxton Grey MD - 11/15/2024 Normal sinus rhythm QTcB >= 480 msec Abnormal ECG No previous ECGs available Confirmed by Braxton Grey ([id number]) on 11/15/2024 6:59:27 PM us Jory Hurd DO ECG ORDERABLES Final Resul t [facility] * (ABNORMAL) POCT Glucose (11/08/2024 11:06 PM EDT) Only the most recent of7 resultswithin the time period is included. POC Glucose 130(H) 70 - 99 mg/dl 11/08/2024 11:06 PM EDT [facility] Performed on ACCU-CHEK 11/08/2024 11:06 PM EDT [facility] 11/08/2024 11:0 6 PM EDT 11/08/2024 11:19 PM EDT us Unknown Provider Result POINT OF CARE TEST ORDER JIN Final Result [facility] [address] [place] [id number], [facility] [phone] * CTA CHEST ABDOMEN PELVIS W WO [...] MD IMG CT ORDERABLES Final Result * POCT Creatinine (11/08/2024 1:16 PM EDT) [facility] POC CREATININE WHOLE BLOOD 0.6 BLOOD SPECIMEN / Unknown 11/08/2024 1:16 PM EDT us Oc Graham MD POINT OF CARE TEST ORDERABLES Fi nal Result * POCT Venous (11/08/2024 1:14 PM EDT) [facility] POC Creatinine 0.6 0.6 - 1.2 mg/dL 11/08/2024 1:14 PM EDT [facility] Est, Glom Filt Rate >90 >60 11/08/2024 1:14 PM EDT [facility] Comment: Pediatric calculator link https://www.kidney.org/professionals/kdoqi/gfr_calculatorped Effective [...] Sample Type KIRA 11/08/2024 1:14 PM EDT [facility] Performed on SEE BELOW 11/08/2024 1:14 PM EDT [facility] Comment:Performed on POC 11/08/2024 1:14 PM EDT 11/08/2024 1:54 PM EDT Oc Graham MD POINT OF CARE TEST ORDERABLES Fi nal Result [facility] [address] [place] [address], [facility] [phone] * (ABNORMAL) Comprehensive Metabolic Panel w/ Reflex to MG (11/08/2024 12:50 PM EDT) Sodium 135 135 - 144 mEq/L 11/08/2024 12:59 PM EDT [facility] Potassium reflex Magnesium 3.6 3.4 - 4.9 mEq/L 11/08/2024 12:59 PM EDT [facility] Chloride 101 95 - 107 mEq/L 11/08/2024 12:59 PM EDT [facility] CO2 25 20 - 31 mEq/L 11/08/2024 12:59 PM EDT [facility] Anion Gap 9 9 - 15 mEq/L 11/08/2024 12:59 PM T [facility] Glucose 84 70 - 99 mg/dL 11/08/2024 12:59 PM EDT [facility] BUN 14 6 - 20 mg/dL 11/08/2024 12:59 PM EDT [facility] Creatinine 0.56 0.50 - 0.90 mg/dL 11/08/2024 12:59 PM T [facility] Est, Glom Filt Rate >90.0 >60 11/08/2024 12:59 PM T [facility] Comment: Pediatric calculator link https://www.kidney.org/professionals/kdoqi/gfr_calculatorped Effective [...] 8.5 - 9.9 mg/dL 11/08/2024 12:59 PM T [facility] Total Protein 6.2(L) 6.3 - 8.0 g/dL 11/08/2024 12:59 PM [facility] Albumin 3.8 3.5 - 4.6 g/dL 11/08/2024 12:59 PM [facility] Total Bilirubin 0.4 0.2 - 0.7 mg/dL 11/08/2024 12:59 PM [facility] Alkaline Phosphatase 58 40 - 130 U/L 11/08/2024 12:59 PM [facility] ALT 12 0 - 33 U/L 11/08/2024 12:59 PM [facility] AST 25 0 - 35 U/L 11/08/2024 12:59 PM [facility] Globulin 2.4 2.3 - 3.5 g/dL 11/08/2024 12:59 PM [facility] Blood BLOOD SPECIMEN / Unknown 11/08/2024 12:50 PM EDT 11/08/2024 12:50 PM EDT us Oc Siljak MD CHEMISTRY ORDERABLES Final Resul t [facility] [address] [place] [address], [facility] [phone] from Last 3 Months Insurance [employer] [place]ICA[place] Advance Directives * Full Code (Latest Code Status on File) Date Activated Date Inactivated Comments 11/28/2022 11:57 AM 12/03/2022 7:56 PM Healthcare Agents on File Name Relationship Healthcare Agent Relationshi p Communication Jessica Phipps Parent Secondary Decision Maker Roddy Garcia Spouse Primary Decision Maker Care Teams Livestock Showman Relationship Specialty Start Date End Date Thomas Alas MD [address] [place] [address] PCP - General Family Medicine 11/08/24
--- OUTSIDE RECORDS SUMMARY | 2024-11-19 09:27 | XMS_ITS | Clinical Summary ---
Author Organization [facility] Healthcare Address [address] [place] [address] Care Team Providers Care Paint Grinder [employer] Name Role Phone Anna Mendez PERSONAL DEVELOPMENT COACH Unavailable Thomas Alas MD Primary Care Provider [phone] Allergies Active Allergy Reactions Criticality Noted Date [...] 06/09/19 23 Active Lancets (OneTouch Delica Plus [id number]) misc USE TO TEST BLOOD SUGAR TWICE [...] Hypertensive disorder 09/13/2017 39 weeks gestation of ([facility]) 2016 Polycystic ovaries 10/02/2013 Asthma [...] Health Maintenance Insurance [employer] Care Teams Paint Grinder [employer] Relationship Specialty Start Date End Date Thomas Alas MD [address] [place] [address] PCP - General Family Medicine 12/14/23 Anna Mendez NP [address] [place] [address] Referring Physician Family Medicine 07/23/22
--- OUTSIDE RECORDS SUMMARY | 2024-11-19 09:27 | XMS_ITS | Clinical Summary ---
Author Organization [facility] Address [address] [place] [address] Care Team Providers Care Aws Architect Name Role Phone Thomas Alas MD Primary Care Provider [phone] Allergies Active Allergy Reactions Criticality Noted Date [...] age to complete this topic Insurance MMO [facility] [facility] Care Teams Aws Architect Relationship Specialty Start Date End Date Thomas Alas MD PCP - General 12/30/23
--- OUTSIDE RECORDS SUMMARY | 2024-11-19 09:27 | XMS_ITS | Encounter Summary ---
Author Organization [facility] Address [address] [place] [address] Care Team Providers Care Nurses Aide Name Role Phone Thomas Alas MD Primary Care Provider [phone] Reason for Visit * Reason Onset Date Comments Appointment 04/18/2024 Encounter Details Date Type Department Care Team (Late st Contact Info) Description 04/18/2024 Telephone Central Scheduling [address] [place] [phone] Joanne Shi Appointment Social History Tobacco [...] until 2025. The patient also follows with [facility] GI. I would recommend maintaining follow [...] Please advise Preferred call back time: Anytime [phone] Will warm connect patient to nursing line [...] on filedocumented in this encounter Care Teams Nurses Aide Relationship Specialty Start Date End Date Thomas Alas MD PCP - General 12/30/23 documented as of this encounter
[2024-11-19 09:41] LABS: Hematocrit 29.6 % (36.0-48.0); Hemoglobin 9.8 g/dL (12.0-16.0); Immature Granulocytes Abs Auto 0.01 10^3/uL (0.00-0.03); Immature Granulocytes Pct Auto 0.3 % (0.0-0.5); Lymphocytes Absolute Auto 1.4 10^3/uL (1.2-3.8); Mean Corpuscular HGB Conc 33.1 g/dL (29.9-35.2); Mean Corpuscular Hemoglobin 29.4 pg (26.7-34.0); Mean Corpuscular Volume 88.9 fL (81.0-99.0); Platelet Count 323 10^3/uL (150-450); Red Blood Count 3.33 10^6/uL (4.20-5.40); White Blood Count 3.4 10^3/uL (4.0-11.0)
[2024-11-19] MEDS: MORPHINE SULFATE 4 MG/ML VIAL IV (09:47)
[2024-11-19 10:03] LABS: Alanine Aminotransferase 18 U/L (14-59); Albumin Globulin Ratio 1.0; Albumin Level 3.2 g/dL (3.4-5.0); Alkaline Phosphatase 58 U/L (46-116); Anion Gap 12.7; Aspartate Amino Transferase 22 U/L (15-37); Blood Urea Nitrogen 11.0 mg/dL (7.0-18.0); Calcium 8.1 mg/dL (8.5-10.1); Carbon Dioxide 26.0 mmol/L (21.0-32.0); Chloride 107 mmol/L (98-107); Estimated GFR (African America >60 (>=60 mL/min/1.73m^2); Estimated GFR (Non-African Ame >60 (>=60 mL/min/1.73m^2); Globulin 3.2 g/dL; Glucose 69 mg/dL (74-106); Potassium 3.7 mmol/L (3.5-5.1); Sodium 142 mmol/L (136-145); Total Protein 6.4 g/dL (6.4-8.2)
[2024-11-19] MEDS: HYDROMORPHONE HCL 0.5 MG/0.5 ML SYRINGE IV ×3 (10:50→22:30)
[2024-11-19] MEDS: FAMOTIDINE/PF 20 MG/2 ML VIAL IV (10:51)
[2024-11-19] MEDS: DEXTROSE 50 %-WATER 25 GM/50 ML SYRINGE IV (11:05)
--- NOTE | 2024-11-19 12:13 | PC.NURSE ---
1130: multiple attempts to get peripheral IV for CT of chest. 2 attempts by this nurse. 1145: Joellen RN attempts to get peripheral line x [address] Benítez informed. CT on hold pending Troponin result.
[2024-11-19] MEDS: HYDROMORPHONE HCL 0.5 MG/0.5 ML SYRINGE IVP (13:11)
--- NOTE | 2024-11-19 14:37 | PC.NURSE ---
assisted pt to the bathroom and back to room at this time
--- NOTE | 2024-11-19 15:30 | ECG_ITS ---
[facility] Test Date: 2024-11-19 Pat Name: JUAN KONG Department: Room: [facility] Gender: Female Staff Scientist: : [id number] Requested By: [id number] Order Number: [id number] Reading MD: JAMES HODGES M.D. Measurements Intervals [place] Rate: 60 P: 50 ND: 153 QRS: 41 QRSD: 89 T: 51 QT: 427 QTc: 428 Interpretive Statements SINUS RHYTHM Normal ECG Compared to ECG 11/14/2024 17:23:57 No significant changes Electronically Signed On 11-19-2024 19:26:01 EDT by JAMES HODGES M.D.
--- NOTE | 2024-11-19 15:47 | PC.NURSE ---
patient arrives to ED with port accessed
--- NOTE | 2024-11-19 17:24 | PM.HP ---
HPI H&P: HPI History of Present Illness Chief complaint: CHEST PAIN Narrative: This is A 42-year-old woman who came to the emergency room this morning with chest pain. In the emergency room her troponins were quite normal at 4.4 and 4.8, but to entirely rule out any cardiac problem it was felt that she would need to be placed in hospital and observation status overnight. 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 She was sent to the [facility]. The patient describes getting a cardiac catheterization, but no stents were placed. She was put on aspirin and Plavix. She says that that was not absolutely severe crushing chest pain that was in the middle of her chest and radiating to the left to her left arm. It seemed to happen out of nowhere. The patient does come to hospital daily for IV infusions of Compazine and Benadryl through her port. Then, on November 14, she was in the ER with chest pain. Her picked her up and while out driving her to the [facility] where she was monitored. The patient describes that she is on a lot of new medications due to this issue and these include colchicine at 0.3 mg every other day. I suspect that this very low dose of colchicine is being utilized because it has drug to drug interactions with her new her Ranolazine 500 mg twice daily and with verapamil 40 mg 3 times daily. The patient does mention that the pain seems to come on sharply and spread from the left side of her sternum into the left pectoral region and towards her left shoulder. These episodes of pain come fairly rapidly. They seem to exacerbate her chronic problems with nausea. She thinks that they feel like muscle spasms as she is more comfortable lying down on her left side than on her right side. So she has been sleeping on her left side and she had heard somewhere that lying with the left side down would improve circulation. She does have an extensive past medical history with complications due to gastric bypass surgery. She had that done at the [facility]. She did have a feeding tube which became infected and was removed over the summer. She suffered bacteremia from that. She had to have her port removed. Now a new port has been placed. She does receive TPN every other day. She comes to the hospital for infusions of Compazine and Benadryl every day. She says the [facility] had wanted to put a feeding tube back in but she has not been able to get there because of these recent issues with her heart. Opioid HPI Opioid Management Most Recent Pain and Opioid Data: Last Pain Scale 7 Today, 17:47 Last Pain Assessment Today, 16:00 Last ED Pain Assessment 11/14/24, 16:15 Last MAR Pain Assessment Today, 09:47 Last ORT Total Score 1 Today, 15:40 Last ORT Risk Category Low Risk Today, 15:40 Ur Phencyclidine Scrn, (NEGATIVE) Negative 08/28/24, 14:10 Review of Systems ROS Narrative 10 point review of systems is reviewed and is negative except as mentioned elsewhere in this documentation. [facility] Medical History Hypoglycemia ?E16.2 - Hypoglycemia, unspecified (ICD-10) Gastroenteritis ?K52.9 - Noninfective gastroenteritis and colitis, unspecified (ICD-10) Feeding by G-tube ?Z93.1 - Gastrostomy status (ICD-10) Abdominal pain ?R10.9 - Unspecified abdominal pain (ICD-10) Small bowel intussusception ?K56.1 - Intussusception (ICD-10) Nausea and vomiting ?R11.2 - Nausea with vomiting, unspecified (ICD-10) Flank pain ?R10.9 - Unspecified abdominal pain (ICD-10) Abdominal pain ?R10.9 - Unspecified abdominal pain (ICD-10) Acute abdomen ?R10.0 - Acute abdomen (ICD-10) Intractable nausea and vomiting ?R11.2 - Nausea with vomiting, unspecified (ICD-10) Intractable abdominal pain ?R10.9 - Unspecified abdominal pain (ICD-10) Depression ?F32.A - Depression, unspecified (ICD-10) Asthma ?J45.909 - Unspecified asthma, uncomplicated (ICD-10) Dyspareunia Pelvic pain ?R10.2 - Pelvic and perineal pain (ICD-10) Ovarian cyst ?N83.209 - Unspecified ovarian cyst, unspecified side (ICD-10) PONV (postoperative nausea and vomiting) ?R11.2 - Nausea with vomiting, unspecified (ICD-10) ?Z98.890 - Other specified postprocedural states (ICD-10) PCOS (polycystic ovarian syndrome) ?E28.2 - Polycystic ovarian syndrome (ICD-10) Hypothyroidism (acquired) ?E03.9 - Hypothyroidism, unspecified (ICD-10) Anxiety ?F41.9 - Anxiety disorder, unspecified (ICD-10) GERD (gastroesophageal reflux disease) ?K21.9 - Gastro-esophageal reflux disease without esophagitis (ICD-10) Sleep apnea ?G47.30 - Sleep apnea, unspecified (ICD-10) Anemia ?D64.9 - Anemia, unspecified (ICD-10) Fibromyalgia ?M79.7 - Fibromyalgia (ICD-10) Syncope (07/07/13) ?R55 - Syncope and collapse (ICD-10) Shingles ?B02.9 - Zoster without complications (ICD-10) Headache ?R51.9 - Headache, unspecified (ICD-10) Migraine ?G43.909 - Migraine, unspecified, not intractable, without status migrainosus (ICD-10) Mechanical ileus (01/31/20) ?K56.609 - Unspecified intestinal obstruction, unspecified as to partial versus complete obstruction (ICD-10) COVID-19 (~02/2020) ?U07.1 - COVID-19 (ICD-10) Kidney stones ?N20.0 - Calculus of kidney (ICD-10) Surgical History S/P percutaneous endoscopic gastrostomy (PEG) tube placement ?Z93.1 - Gastrostomy status (ICD-10) 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 - Celiac artery compression syndrome (ICD-10) H/O shoulder surgery (2022) ?Z98.890 - Other specified postprocedural states (ICD-10) History of hip surgery ?Z98.890 - Other specified postprocedural states (ICD-10) S/P right knee arthroscopy ?Z98.890 - Other specified postprocedural states (ICD-10) S/P left knee arthroscopy ?Z98.890 - Other specified postprocedural states (ICD-10) Hx of tonsillectomy ?Z90.89 - Acquired absence of other organs (ICD-10) History of thoracic surgery (~2021) ?Z98.890 - Other specified postprocedural states (ICD-10) History of esophagogastroduodenoscopy (EGD) (10/04/13) ?Z98.890 - Other specified postprocedural states (ICD-10) History of cholecystectomy (10/06/13) ?Z90.49 - Acquired absence of other specified parts of digestive tract (ICD-10) Delivery by section (~2016) Delivery by section (01/17/18) H/O colonoscopy (~2018) ?Z98.890 - Other specified postprocedural states (ICD-10) S/P right knee arthroscopy (07/21/18) ?Z98.890 - Other specified postprocedural states (ICD-10) Delivery by section (06/19/19) History of appendectomy (09/25/19) ?Z90.49 - Acquired absence of other specified parts of digestive tract (ICD-10) H/O laparoscopy (11/10/19) ?Z98.890 - Other specified postprocedural states (ICD-10) History of liver biopsy (~04/2020) ?Z98.890 - Other specified postprocedural states (ICD-10) H/O laparoscopy (07/18/20) ?Z98.890 - Other specified postprocedural states (ICD-10) H/O arthroscopy of right knee (08/07/20) ?Z98.890 - Other specified postprocedural states (ICD-10) S/P laparoscopic sleeve gastrectomy (09/03/20) ?Z98.84 - Bariatric surgery status (ICD-10) H/O: hysterectomy (11/12/20) ?Z90.710 - Acquired absence of both cervix and uterus (ICD-10) History of hernia repair (03/20/21) ?Z98.890 - Other specified postprocedural states (ICD-10) ?Z87.19 - Personal history of other diseases of the digestive system (ICD-10) Family History Other Family history of cancer Family history of diabetes mellitus Family history of hypertension Family history of myocardial infarction PONV (postoperative nausea and vomiting) Social History Within the past year, how often did you have a drink containing alcohol: never Score interpretation: A score less than 3 is consistent with normal alcohol consumption. Smoking status: Never smoker Non-prescribed substance use: denies use Previous occupational history: disabled Known occupational exposures/hazards details: disabled Highest level of school completed/degree received: Master's degree Are you now , , , , never or living with a partner: In a typical week, how many times do you talk on the telephone with family, friends, or neighbors: 3 or more times per week How often do you get together with friends or relatives: twice per week How often do you attend bahai or quaker services: 4 or more times per year Do you belong to any clubs or organizations such as bahai groups unions, [employer] or athletic groups, or school groups: no Total score: 3 Score interpretation: A score of greater than or equal to 2 indicates the lowest level of social isolation. Little interest or pleasure in doing things: not at all Feeling down, depressed, or hopeless: not at all Feel stressed/tense/nervous/anxious/difficulty sleeping: to some extent Do you think of yourself as: straight/heterosexual Gender Identity: female Meds Home Medications and Allergies Home Medications ?Medication ?Instructions ?Recorded ?Confirmed ?Type hydroxyzine HCl 25 mg tablet 25 mg PO BID PRN anxiety 09/17/22 11/19/24 History topiramate 100 mg tablet 100 mg PO BID 09/17/22 11/19/24 History metoclopramide HCl 10 mg tablet 10 mg PO BID PRN nausea and 06/14/23 11/19/24 History vomiting escitalopram oxalate 20 mg tablet 20 mg PO DAILY 06/15/23 11/19/24 History levothyroxine 75 mcg tablet 75 mcg PO DAILY 06/15/23 11/19/24 History tramadol 50 mg tablet 50 mg PO Q6H PRN pain #28 tabs 06/16/23 11/19/24 Rx acetaminophen 325 mg tablet (Pain 650 mg PO Q4H PRN pain 06/24/23 11/19/24 History Relief (acetaminophen)) blood sugar diagnostic (OneTouch 03/29/24 11/19/24 History Ultra Test strips) [facility] 03/29/24 11/19/24 History Ultra2 Meter) blood-glucose sensor (FreeStyle 03/29/24 11/19/24 History Hunter 3 Plus Sensor device) fentanyl 25 mcg/hr transdermal 1 patch transdermal Q72H 03/29/24 11/19/24 History patch hydrocodone 5 mg-acetaminophen 325 1 tab PO Q6H PRN pain 03/29/24 11/19/24 History mg tablet lancets 30 gauge (OneTouch Delica 03/29/24 11/19/24 History Plus Lancet) pen needle, diabetic 32 gauge x 03/29/24 11/19/24 History 5/32 (BD Stefania 2nd Gen Pen Needle) prucalopride 2 mg tablet 2 mg PO DAILY 03/29/24 11/19/24 History trazodone 100 mg tablet 100 mg PO .qhs 03/29/24 11/19/24 History ergocalciferol (vitamin D2) 1,250 1,250 mcg PO .Q7 06/21/24 11/19/24 History mcg (50,000 unit) capsule mirtazapine 45 mg tablet 45 mg PO BEDTIME 08/16/24 11/19/24 History aspirin 81 mg chewable tablet 1 tab PO .qd 11/19/24 11/19/24 History clopidogrel 75 mg tablet 75 mg PO .qd 11/19/24 11/19/24 History colchicine 0.6 mg tablet 0.3 mg PO .qod 11/19/24 11/19/24 History fentanyl 12 mcg/hr transdermal 1 patch transdermal Q72H 11/19/24 11/19/24 History patch methocarbamol 500 mg tablet 750 mg PO Q6H PRN Muscle spasm 11/19/24 11/19/24 History metoprolol succinate 25 mg 25 mg PO .qd 11/19/24 11/19/24 History tablet,extended release 24 hr ranolazine 500 mg tablet,extended 500 mg PO Q12H 11/19/24 11/19/24 History release,12 hr rosuvastatin 40 mg tablet 40 mg PO .qhs 11/19/24 11/19/24 History verapamil 40 mg tablet 40 mg PO Q8H 11/19/24 11/19/24 History Allergies Allergy/AdvReac Type Severity Reaction Status Date / Time adhesive Allergy Rash Verified 11/19/24 09:33 NSAIDS (Non-Steroidal Allergy intolerance Verified 11/19/24 09:33 Anti-Inflamma codeine AdvReac Vomiting Verified 11/19/24 09:33 Exam Narrative Exam Narrative: General: Awake and alert but in moderate discomfort. Neurologic: Recent remote memory intact. Seems to move all 4 extremities well without any focal neurologic deficits. Eyes: EOMI. Conjunctive and sclera clear. Skin: Skin is dry and well-perfused. Blood pressure 125/85, pulse 67, respirations 14, temperature 97.8, oxygen saturation of 90% on room air. Pulmonary: Clear to auscultation throughout. No wheezing. No rhonchi. No crackles. Right port site is good. Skin over this is normal. No cellulitis. No redness. Cardiac: Regular rate and rhythm to auscultation I do not hear any murmurs or rubs or gallops to auscultation. Chest wall: No pain on palpating over her clavicles or sternum or rib heads. GI: Abdomen soft, normal bowel sounds to auscultation. Lower extremities: No edema in the ankles bilaterally. Constitutional Vital Signs, click to edit/add: Last Vital Signs Temp 97.8 F 11/19/24 15:40 Pulse 67 11/19/24 16:00 Resp 14 11/19/24 15:23 BP 125/85 11/19/24 15:40 Pulse Ox 98 11/19/24 15:40 O2 Del Method Room Air 11/19/24 15:40 Results Labs Labs: Short CBC 11/19/24 Range/Units 09:30 WBC 3.4 L (4.0-11.0) 10^3/uL Hgb 9.8 L (12.0-16.0) g/dL Hct 29.6 L (36.0-48.0) % Plt Count 323 (150-450) 10^3/uL BMP 11/19/24 09:30 Sodium 142 Potassium 3.7 Chloride 107 Carbon Dioxide 26.0 BUN 11.0 Creatinine 0.70 Glucose 69 L Calcium 8.1 L Liver Function 11/19/24 Range/Units 09:30 Total Bilirubin 0.4 (0.2-1.0) mg/dL AST 22 (15-37) U/L ALT 18 (14-59) U/L Alkaline Phosphatase 58 (46-116) U/L Albumin 3.2 L (3.4-5.0) g/dL Assessment and Plan Assessment and Plan (1) Chest pain: Qualifiers: Chest pain type: unspecified Qualified Code(s): R07.9 - Chest pain, unspecified (2) Gastroparesis: Plan Assessment: Patient presents to the ER with recurrent chest pains after an apparently spontaneous coronary artery dissection about 3 weeks ago. She currently has been treated with colchicine which suggested concern for pericarditis and with short acting verapamil which suggested concerned about vasospasm as well as ranolazine, aspirin 81 mg daily, Plavix 75 mg daily, and statin medication with 40 mg of rosuvastatin daily. Plan: Placement of the patient into the hospital with observation status. Will cycle additional cardiac enzymes tonight and tomorrow morning. Cardiology consultation to [facility]. I am giving her a one-time dose of 0.6 mg of colchicine now. Patient requests 1 L of IV fluids which will be given this afternoon. Her home medications have been reviewed and she can take them the way that she takes them at home, including long-term fentanyl patch. IV Compazine and IV Benadryl as needed for nausea.
[2024-11-19] MEDS: COLCHICINE 0.6 MG TABLET PO (18:21)
[2024-11-19] MEDS: DIPHENHYDRAMINE HCL 50 MG/ML VIAL 25 MG IVP ×2 (18:21→22:30)
[2024-11-19] MEDS: PROCHLORPERAZINE 10 MG/2 ML VIAL 5 MG IV ×2 (18:21→22:30)
[2024-11-19] MEDS: VERAPAMIL HCL 40 MG TABLET PO (19:34)
[2024-11-19] MEDS: POLYETHYLENE GLYCOL 3350 17 GM POWDER PACKET PO (21:49)
[2024-11-19] MEDS: TRAZODONE HCL 50 MG TABLET 100 MG PO (21:49)
[2024-11-19] MEDS: RANOLAZINE 500 MG TAB.ER.12H PO (21:49)
[2024-11-19] MEDS: MIRTAZAPINE 15 MG TABLET 45 MG PO (21:49)
[2024-11-19] MEDS: TOPIRAMATE 100 MG TABLET PO (21:49)
[2024-11-20] VITALS (22 sets, daily range): BP systolic 94–133; BP diastolic 58–85; PULSE 52–98; TEMP 36.4–36.7; O2SAT 95–98
[2024-11-20] MEDS: HYDROMORPHONE HCL 0.5 MG/0.5 ML SYRINGE IV ×3 (02:39→12:41)
[2024-11-20] MEDS: PROCHLORPERAZINE 10 MG/2 ML VIAL 5 MG IV ×5 (02:39→21:10)
[2024-11-20] MEDS: DIPHENHYDRAMINE HCL 50 MG/ML VIAL 25 MG IVP ×5 (02:39→21:10)
[2024-11-20] MEDS: VERAPAMIL HCL 40 MG TABLET PO ×3 (02:45→17:42)
[2024-11-20] MEDS: LEVOTHYROXINE SODIUM 75 MCG TABLET PO (05:49)
[2024-11-20 06:04] LABS: Hematocrit 28.4 % (36.0-48.0); Hemoglobin 9.3 g/dL (12.0-16.0); Mean Corpuscular HGB Conc 32.7 g/dL (29.9-35.2); Mean Corpuscular Hemoglobin 29.3 pg (26.7-34.0); Mean Corpuscular Volume 89.6 fL (81.0-99.0); Platelet Count 321 10^3/uL (150-450); Red Blood Count 3.17 10^6/uL (4.20-5.40); White Blood Count 2.9 10^3/uL (4.0-11.0)
[2024-11-20 06:23] LABS: Anion Gap 12.3; Blood Urea Nitrogen 10.0 mg/dL (7.0-18.0); Calcium 8.3 mg/dL (8.5-10.1); Carbon Dioxide 26.8 mmol/L (21.0-32.0); Chloride 109 mmol/L (98-107); Estimated GFR (African America >60 (>=60 mL/min/1.73m^2); Estimated GFR (Non-African Ame >60 (>=60 mL/min/1.73m^2); Glucose 79 mg/dL (74-106); Potassium 4.1 mmol/L (3.5-5.1); Sodium 144 mmol/L (136-145)
[2024-11-20 06:35] LABS: Eosinophils Absolute Manual 0.34 10^3/uL (0.00-0.70); Eosinophils Percent Manual 12.0 % (0.9-7.0); Lymphocytes Absolute Manual 1.16 10^3/uL (1.20-3.80); Lymphocytes Percent Manual 40.0 % (20.5-60.0); Monocytes Absolute Manual 0.31 10^3/uL (0.30-0.80); Monocytes Percent Manual 11.0 % (1.7-12.0); Segmented Neut Absolute Manual 0.95 10^3/uL (1.4-6.5); Segmented Neutrophils % Manual 33.0 (43.0-75.0)
[2024-11-20 06:36] LABS: Anisocytosis 2+; Atypical Lymphocytes % Manual 3.0 %; Atypical Lymphocytes Abs Man 0.08; Basophils Abs Manual 0.05 10^3/uL (0.00-0.10); Basophils Percent Manual 2.0 % (0.2-2.0); Hypochromasia 1+; Poikilocytosis 1+
--- NOTE | 2024-11-20 07:00 | ECG_ITS ---
[facility] Test Date: 2024-11-20 Pat Name: JUAN KONG Department: Room: 2141 Gender: Female Associate Pathologist: : 1990 Requested By: [id number] Order Number: [id number] Reading MD: JAMES HODGES M.D. Measurements Intervals [place] Rate: 66 P: 51 VT: 157 QRS: 46 QRSD: 89 T: 55 QT: 434 QTc: 457 Interpretive Statements SINUS RHYTHM WITH OCCASIONAL VENTRICULAR PREMATURE COMPLEXES Otherwise normal ECG Compared to ECG 11/19/2024 15:53:20 Ventricular premature complex(es) now present Electronically Signed On 11-20-2024 18:25:25 EDT by JAMES HODGES M.D.
--- NOTE | 2024-11-20 08:05 | CM.NOTE ---
Rounds made with Dr. Montelongo, discussed with pt plan of care. Cardiology will consult on pt for further recommendations.
[2024-11-20] MEDS: ASPIRIN 81 MG TAB.CHEW PO (08:15)
[2024-11-20] MEDS: CLOPIDOGREL BISULFATE 75 MG TABLET PO (08:15)
[2024-11-20] MEDS: POLYETHYLENE GLYCOL 3350 17 GM POWDER PACKET PO ×2 (08:16→21:10)
[2024-11-20] MEDS: TOPIRAMATE 100 MG TABLET PO ×2 (08:16→21:10)
[2024-11-20] MEDS: METOPROLOL SUCCINATE 25 MG TAB.ER.24H PO (08:16)
[2024-11-20] MEDS: ESCITALOPRAM 10 MG TABLET 20 MG PO (08:16)
[2024-11-20] MEDS: RANOLAZINE 500 MG TAB.ER.12H PO ×2 (08:16→21:10)
[2024-11-20] MEDS: FENTANYL 25 MCG/HR PATCH.TD72 TD (09:12)
--- NOTE | 2024-11-20 11:31 | PM.PN ---
Progress Note: Subjective Subjective Interval history: Patient is feeling well. No chest pain. Strongly denies any shortness of breath. No abdominal pain nausea or vomiting. No cough or congestion. Exam Narrative Exam Narrative: [pt is awake and alert. oriented to place, time and person HEENT: [place] conjunctiva and NL buccal mucosa Neck: Supple, no tenderness Endocrine: No Thyromegaly. Vascular: No JVD or carotid bruit. Lymphatic: No cervical lymphadenopathy. Chest: CTA no DTP. Patient has a port in the right upper quadrant of the chest. Heart RRR, no extra sound or murmur. Abd: Soft, no tenderness, no rebound and no rigidity. Increase abd girth therefore clinically I could not exclude the possibility of intra abd mass or organomegaly. LE: No cyanosis or clubbing, no varices or edema. Neuro: A A O. Nl speech, comprehension and attention. Nl and symetrical motor and tone examination through out. []] Constitutional Vital Signs, click to edit/add: Last Vital Signs Temp 98.1 F 11/20/24 09:15 Pulse 61 11/20/24 10:00 Resp 16 11/20/24 09:15 BP 133/85 11/20/24 09:15 Pulse Ox 98 11/20/24 09:15 O2 Del Method Room Air 11/20/24 09:15 Progress Note: Objective Labs Labs: Short CBC 11/20/24 Range/Units 05:58 WBC 2.9 L (4.0-11.0) 10^3/uL Hgb 9.3 L (12.0-16.0) g/dL Hct 28.4 L (36.0-48.0) % Plt Count 321 (150-450) 10^3/uL BMP 11/20/24 05:58 Sodium 144 Potassium 4.1 Chloride 109 H Carbon Dioxide 26.8 BUN 10.0 Creatinine 0.75 Glucose 79 Calcium 8.3 L Progress Note: A&P Assessment and Plan (1) Chest pain: Qualifiers: Chest pain type: unspecified Qualified Code(s): R07.9 - Chest pain, unspecified (2) Gastroparesis: Plan Chest pain. Reported recent coronary dissection. Continue cardiovascular medications as recommended by [facility] physician pending local [facility] programming coordinator to evaluate and recommend. No shortness of breath. No hypoxemia. No tachypnea. Saturation is 98% on room air. Anemia, no evidence of acute blood loss. Patient will likely require to have anemia workup to be done in the outpatient setting to be handled by PCP in collaboration with other needed outpatient providers. This may include but not limited to EGD, colonoscopy, [facility] referral to see hematology and other needed age-appropriate cancer screening. Chronic, subacute medical conditions not listed above, abnormal labs and imaging. These would need to be addressed. Could be addressed later on or in the outpatient setting by PCP collaboration with other needed outpatient providers when time and condition are appropriate.
[2024-11-20] MEDS: TRAMADOL HCL 50 MG TABLET PO (16:41)
--- NOTE | 2024-11-20 17:51 | PC.NURSE ---
Patient is asking if we can ask Physician if we can order hydrocodone/acetaminophen 1 or 2 tablets q6 hours for pain prn not to exceed 6 tablets in a in 24 hour period . HER PCP wrote the script on the of this month. She currently taking tramadol 50 mg with no relief. States chest pain which are vaso spasms her words. She states it is very uncomfortable. Patient continues to watch movies talk on her phone and eat all meals with out difficulty. This rewriter will ask DR Montelongo
--- NOTE | 2024-11-20 20:40 | PM.CACN ---
History of Present Illness History of Present Illness Consult date: 11/20/24 Requesting physician: Kal Montelongo Consult reason: chest pain Chief complaint: CHEST PAIN Narrative: This is a a 34-year-old woman who is known to our service from recent repeated admissions to the hospital with chest pain, spontaneous coronary artery dissection and NSTEMI. She was treated at [facility] initially for spontaneous coronary artery dissection and NSTEMI and after a prolonged admission that was complicated by cardiac catheterization access site related bleeding that necessitated surgical intervention, she was discharged home however she subsequently had repeated admissions for recurrent chest pain with no elevation of troponin or ischemic ST changes. She was diagnosed with pericarditis and was started on colchicine. Most recently she was discharged from [facility] on 11/17/2024 after being admitted with similar complaints. Her prior medical history is significant for hypertension, hyperlipidemia, asthma, obstructive sleep apnea, hypothyroidism, GERD, irritable bowel syndrome, fibromyalgia, diabetes, median arcuate ligament syndrome status post celiac plexus block, morbid obesity status post sleeve gastrectomy, extensive chronic adhesions and recurrent obstructions and gastroparesis status post multiple infusions and J-tube complicated by infection and removal. She reports that she was receiving an infusion at the infusion center and she felt chest pressure and this led for her to be transferred to the [facility]. Since admission she has been doing well without any significant chest pain. Her troponins were negative and her EKG does not show acute changes. She has been hemodynamically stable. Review of Systems ROS Status of ROS 10 or more systems reviewed and unremarkable except as noted in history and below [facility] Medical History (Updated 11/20/24 @ 20:48 by JAMES HODGES) Coronary artery dissection ?I25.42 - Coronary artery dissection (ICD-10) Hypoglycemia ?E16.2 - Hypoglycemia, unspecified (ICD-10) Gastroenteritis ?K52.9 - Noninfective gastroenteritis and colitis, unspecified (ICD-10) Feeding by G-tube ?Z93.1 - Gastrostomy status (ICD-10) Abdominal pain ?R10.9 - Unspecified abdominal pain (ICD-10) Small bowel intussusception ?K56.1 - Intussusception (ICD-10) Nausea and vomiting ?R11.2 - Nausea with vomiting, unspecified (ICD-10) Flank pain ?R10.9 - Unspecified abdominal pain (ICD-10) Abdominal pain ?R10.9 - Unspecified abdominal pain (ICD-10) Acute abdomen ?R10.0 - Acute abdomen (ICD-10) Intractable nausea and vomiting ?R11.2 - Nausea with vomiting, unspecified (ICD-10) Intractable abdominal pain ?R10.9 - Unspecified abdominal pain (ICD-10) Depression ?F32.A - Depression, unspecified (ICD-10) Asthma ?J45.909 - Unspecified asthma, uncomplicated (ICD-10) Dyspareunia Pelvic pain ?R10.2 - Pelvic and perineal pain (ICD-10) Ovarian cyst ?N83.209 - Unspecified ovarian cyst, unspecified side (ICD-10) PONV (postoperative nausea and vomiting) ?R11.2 - Nausea with vomiting, unspecified (ICD-10) ?Z98.890 - Other specified postprocedural states (ICD-10) PCOS (polycystic ovarian syndrome) ?E28.2 - Polycystic ovarian syndrome (ICD-10) Hypothyroidism (acquired) ?E03.9 - Hypothyroidism, unspecified (ICD-10) Anxiety ?F41.9 - Anxiety disorder, unspecified (ICD-10) GERD (gastroesophageal reflux disease) ?K21.9 - Gastro-esophageal reflux disease without esophagitis (ICD-10) Sleep apnea ?G47.30 - Sleep apnea, unspecified (ICD-10) Anemia ?D64.9 - Anemia, unspecified (ICD-10) Fibromyalgia ?M79.7 - Fibromyalgia (ICD-10) Syncope (07/07/13) ?R55 - Syncope and collapse (ICD-10) Shingles ?B02.9 - Zoster without complications (ICD-10) Headache ?R51.9 - Headache, unspecified (ICD-10) Migraine ?G43.909 - Migraine, unspecified, not intractable, without status migrainosus (ICD-10) Mechanical ileus (01/31/20) ?K56.609 - Unspecified intestinal obstruction, unspecified as to partial versus complete obstruction (ICD-10) COVID-19 (~02/2020) ?U07.1 - COVID-19 (ICD-10) Kidney stones ?N20.0 - Calculus of kidney (ICD-10) Surgical History S/P percutaneous endoscopic gastrostomy (PEG) tube placement ?Z93.1 - Gastrostomy status (ICD-10) 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 - Celiac artery compression syndrome (ICD-10) H/O shoulder surgery (2022) ?Z98.890 - Other specified postprocedural states (ICD-10) History of hip surgery ?Z98.890 - Other specified postprocedural states (ICD-10) S/P right knee arthroscopy ?Z98.890 - Other specified postprocedural states (ICD-10) S/P left knee arthroscopy ?Z98.890 - Other specified postprocedural states (ICD-10) Hx of tonsillectomy ?Z90.89 - Acquired absence of other organs (ICD-10) History of thoracic surgery (~2021) ?Z98.890 - Other specified postprocedural states (ICD-10) History of esophagogastroduodenoscopy (EGD) (10/04/13) ?Z98.890 - Other specified postprocedural states (ICD-10) History of cholecystectomy (10/06/13) ?Z90.49 - Acquired absence of other specified parts of digestive tract (ICD-10) Delivery by section (~2016) Delivery by section (01/17/18) H/O colonoscopy (~2018) ?Z98.890 - Other specified postprocedural states (ICD-10) S/P right knee arthroscopy (07/21/18) ?Z98.890 - Other specified postprocedural states (ICD-10) Delivery by section (06/19/19) History of appendectomy (09/25/19) ?Z90.49 - Acquired absence of other specified parts of digestive tract (ICD-10) H/O laparoscopy (11/10/19) ?Z98.890 - Other specified postprocedural states (ICD-10) History of liver biopsy (~04/2020) ?Z98.890 - Other specified postprocedural states (ICD-10) H/O laparoscopy (07/18/20) ?Z98.890 - Other specified postprocedural states (ICD-10) H/O arthroscopy of right knee (08/07/20) ?Z98.890 - Other specified postprocedural states (ICD-10) S/P laparoscopic sleeve gastrectomy (09/03/20) ?Z98.84 - Bariatric surgery status (ICD-10) H/O: hysterectomy (11/12/20) ?Z90.710 - Acquired absence of both cervix and uterus (ICD-10) History of hernia repair (03/20/21) ?Z98.890 - Other specified postprocedural states (ICD-10) ?Z87.19 - Personal history of other diseases of the digestive system (ICD-10) Family History Other Family history of cancer Family history of diabetes mellitus Family history of hypertension Family history of myocardial infarction PONV (postoperative nausea and vomiting) Social History Within the past year, how often did you have a drink containing alcohol: never Score interpretation: A score less than 3 is consistent with normal alcohol consumption. Smoking status: Never smoker Non-prescribed substance use: denies use Previous occupational history: disabled Known occupational exposures/hazards details: disabled Highest level of school completed/degree received: Master's degree Are you now , , , , never or living with a partner: In a typical week, how many times do you talk on the telephone with family, friends, or neighbors: 3 or more times per week How often do you get together with friends or relatives: twice per week How often do you attend mormonism or catholic services: 4 or more times per year Do you belong to any clubs or organizations such as mormonism groups unions, fraternal or athletic groups, or school groups: no Total score: 3 Score interpretation: A score of greater than or equal to 2 indicates the lowest level of social isolation. Little interest or pleasure in doing things: not at all Feeling down, depressed, or hopeless: not at all Feel stressed/tense/nervous/anxious/difficulty sleeping: to some extent Do you think of yourself as: straight/heterosexual Gender Identity: female Meds Home Medications and Allergies Home Medications ?Medication ?Instructions ?Recorded ?Confirmed ?Type hydroxyzine HCl 25 mg tablet 25 mg PO BID PRN anxiety 09/17/22 11/19/24 History topiramate 100 mg tablet 100 mg PO BID 09/17/22 11/19/24 History metoclopramide HCl 10 mg tablet 10 mg PO BID PRN nausea and 06/14/23 11/19/24 History vomiting escitalopram oxalate 20 mg tablet 20 mg PO DAILY 06/15/23 11/19/24 History levothyroxine 75 mcg tablet 75 mcg PO DAILY 06/15/23 11/19/24 History tramadol 50 mg tablet 50 mg PO Q6H PRN pain #28 tabs 06/16/23 11/19/24 Rx acetaminophen 325 mg tablet (Pain 650 mg PO Q4H PRN pain 06/24/23 11/19/24 History Relief (acetaminophen)) blood sugar diagnostic ([facility] 03/29/24 11/19/24 History Ultra Test strips) blood-glucose meter ([facility] 03/29/24 11/19/24 History Ultra2 Meter) blood-glucose sensor ([facility] 03/29/24 11/19/24 History Hunter 3 Plus Sensor device) fentanyl 25 mcg/hr transdermal 1 patch transdermal Q72H 03/29/24 11/19/24 History patch hydrocodone 5 mg-acetaminophen 325 1 tab PO Q6H PRN pain 03/29/24 11/19/24 History mg tablet lancets 30 gauge ([facility] Delica 03/29/24 11/19/24 History Plus Lancet) pen needle, diabetic 32 gauge x 03/29/24 11/19/24 History (BD Stefania 2nd Gen Pen Needle) prucalopride 2 mg tablet 2 mg PO DAILY 03/29/24 11/19/24 History trazodone 100 mg tablet 100 mg PO .qhs 03/29/24 11/19/24 History ergocalciferol (vitamin D2) 1,250 1,250 mcg PO .Q7 06/21/24 11/19/24 History mcg (50,000 unit) capsule mirtazapine 45 mg tablet 45 mg PO BEDTIME 08/16/24 11/19/24 History aspirin 81 mg chewable tablet 1 tab PO .qd 11/19/24 11/19/24 History clopidogrel 75 mg tablet 75 mg PO .qd 11/19/24 11/19/24 History colchicine 0.6 mg tablet 0.3 mg PO .qod 11/19/24 11/19/24 History fentanyl 12 mcg/hr transdermal 1 patch transdermal Q72H 11/19/24 11/19/24 History patch methocarbamol 500 mg tablet 750 mg PO Q6H PRN Muscle spasm 11/19/24 11/19/24 History metoprolol succinate 25 mg 25 mg PO .qd 11/19/24 11/19/24 History tablet,extended release 24 hr ranolazine 500 mg tablet,extended 500 mg PO Q12H 11/19/24 11/19/24 History release,12 hr rosuvastatin 40 mg tablet 40 mg PO .qhs 11/19/24 11/19/24 History verapamil 40 mg tablet 40 mg PO Q8H 11/19/24 11/19/24 History Allergies Allergy/AdvReac Type Severity Reaction Status Date / Time adhesive Allergy Rash Verified 11/19/24 09:33 NSAIDS (Non-Steroidal Allergy intolerance Verified 11/19/24 09:33 Anti-Inflamma codeine AdvReac Vomiting Verified 11/19/24 09:33 Exam Constitutional Vital Signs, click to edit/add: Last Vital Signs Temp 97.8 F 11/20/24 20:01 Pulse 71 11/20/24 20:01 Resp 18 11/20/24 20:01 BP 100/69 11/20/24 20:01 Pulse Ox 97 11/20/24 20:01 O2 Del Method Room Air 11/20/24 20:01 Common normals: no apparent distress General appearance: cooperative and comfortable [facility] Common normals: normocephalic Eye Common normals: conjunctivae normal Neck & C-Spine Common normals: no JVD and no carotid bruits Chest Common normals: inspection of chest normal Respiratory Common normals: normal respiratory effort Auscultation: no rales, no rhonchi and no wheezes Cardio Common normals: regular rhythm, S1 normal heart sound, S2 normal heart sound, no gallops, no murmurs and no rub GI Common normals: Normal to inspection, nondistended, normoactive bowel sounds present Extremity Common normals: no clubbing, cyanosis or edema and no pedal edema Neuro Common normals: oriented x3, moves all extremities and no focal motor deficits Psych Memory/cognition: memory grossly intact and cognition grossly intact Insight: insight good Judgement: judgment good Results Labs and Meds Lab results: CBC 11/20/24 Range/Units 05:58 WBC 2.9 L (4.0-11.0) 10^3/uL RBC 3.17 L (4.20-5.40) 10^6/uL Hgb 9.3 L (12.0-16.0) g/dL Hct 28.4 L (36.0-48.0) % Plt Count 321 (150-450) 10^3/uL Comprehensive Metabolic Panel 11/20/24 Range/Units 05:58 Sodium 144 (136-145) mmol/L Potassium 4.1 (3.5-5.1) mmol/L Chloride 109 H (98-107) mmol/L Carbon Dioxide 26.8 (21.0-32.0) mmol/L BUN 10.0 (7.0-18.0) mg/dL Creatinine 0.75 (0.55-1.02) mg/dL Glucose 79 (74-106) mg/dL Calcium 8.3 L (8.5-10.1) mg/dL Intake and Output 11/20/24 11/20/24 11/20/24 07:59 15:59 23:59 Intake Total 250 / 350 100 / 350 Balance 250 / 350 100 / 350 Intake: Oral 250 / 350 100 / 350 Other: # Voids 3 Assessment and Plan Assessment and Plan (1) Chest pain: Qualifiers: Chest pain type: other chest pain Qualified Code(s): R07.89 - Other chest pain (2) Coronary artery dissection: (3) Pericarditis: Qualifiers: 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 Her chest pain seems to be under good control. At this time I recommend continued management of pain and continued medical therapy. Continue colchicine, clopidogrel, statin therapy, verapamil and ranolazine. There is no need for additional cardiac testing and/or intervention. We can see her in follow-up in the cardiology clinic as planned. She has an appointment for follow-up on 11/28/[address] Wali Collins.
[2024-11-20] MEDS: ATORVASTATIN CALCIUM 40 MG TABLET PO (21:10)
[2024-11-20] MEDS: TRAZODONE HCL 50 MG TABLET 100 MG PO (21:10)
[2024-11-20] MEDS: MIRTAZAPINE 15 MG TABLET 45 MG PO (21:10)
[2024-11-21] VITALS (9 sets, daily range): BP systolic 105–123; BP diastolic 72–81; PULSE 63–80; TEMP 36.3–36.6; O2SAT 96–98
[2024-11-21] MEDS: VERAPAMIL HCL 40 MG TABLET PO ×2 (02:50→09:30)
[2024-11-21] MEDS: DIPHENHYDRAMINE HCL 50 MG/ML VIAL 25 MG IVP ×2 (02:50→11:19)
[2024-11-21] MEDS: PROCHLORPERAZINE 10 MG/2 ML VIAL 5 MG IV ×2 (02:50→07:52)
[2024-11-21] MEDS: LEVOTHYROXINE SODIUM 75 MCG TABLET PO (05:29)
[2024-11-21] MEDS: POLYETHYLENE GLYCOL 3350 17 GM POWDER PACKET PO (09:25)
[2024-11-21] MEDS: ASPIRIN 81 MG TAB.CHEW PO (09:25)
[2024-11-21] MEDS: ESCITALOPRAM 10 MG TABLET 20 MG PO (09:25)
[2024-11-21] MEDS: TOPIRAMATE 100 MG TABLET PO (09:25)
[2024-11-21] MEDS: CLOPIDOGREL BISULFATE 75 MG TABLET PO (09:25)
[2024-11-21] MEDS: METOPROLOL SUCCINATE 25 MG TAB.ER.24H PO (09:26)
[2024-11-21] MEDS: RANOLAZINE 500 MG TAB.ER.12H PO (09:26)
[2024-11-21] MEDS: COLCHICINE 0.6 MG TABLET 0.3 MG PO (09:28)
[2024-11-21] MEDS: TRAMADOL HCL 50 MG TABLET PO (09:28)
--- NOTE | 2024-11-21 10:19 | CM.NOTE ---
Rounds made with Dr. Montelongo. Plan is for discharge home today. He would like pt to follow up with PCP and Cardiology.
--- NOTE | 2024-11-21 10:52 | ECG_ITS ---
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
--- NOTE | 2024-11-21 10:55 | PC.NURSE ---
patient reporting chest pain 10/25. Dr esposito at bedside, stat EKG ordered and vital signs obtained
[2024-11-21] MEDS: MORPHINE SULFATE 2 MG/ML SYRINGE 1 MG IV (11:17)
--- NOTE | 2024-11-21 11:41 | PM.DS1 ---
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 Chest pain. Reported recent coronary dissection. Continue cardiovascular medications as recommended by [facility] physician pending local [facility] supply chain business analyst to evaluate and recommend. No shortness of breath. No hypoxemia. No tachypnea. Saturation is 98% on room air. Troponin and EKGs are negative. Patient was seen by supply chain business analyst Dr. Gilmore who recommended continuation of medical treatment as recommended by [facility] physicians. He did not recommend any additional inpatient diagnostic or therapeutic intervention Chronic pain, depression, anxiety and polypharmacy Patient is on a lot of medications that potentially could cause a drug?drug interaction or adverse effect potentially causing her to have harmful medical implications. Every time patient comes back to the hospital, the list of her medication is larger and longer. Every time we admit her, patient demands that she takes the same regimen that she has been taking prior to admission claiming that she goes into withdrawal if she stop or reduce any of her medications. I am afraid to reduce or eliminate some of her medications against her well fearing that she might go through withdrawal. I strongly encourage patient to sit down with her PCP, pain management and a psychiatrist within the next week or 2 to simplify her regimen significantly to reduce her risk having drug-drug interaction or side effect. Anemia, no evidence of acute blood loss. Patient will likely require to have anemia workup to be done in the outpatient setting to be handled by PCP in collaboration with other needed outpatient providers. This may include but not limited to EGD, colonoscopy, [employer] referral to see hematology and other needed age-appropriate cancer screening. Chronic, subacute medical conditions not listed above, abnormal labs and imaging. These would need to be addressed. Could be addressed later on or in the outpatient setting by PCP collaboration with other needed outpatient providers when time and condition are appropriate. Time Spent with Patient Time attestation: Total time spent providing and/or coordinating discharge services: Exam Narrative Exam Narrative: [pt is awake and alert. oriented to place, time and person HEENT: [place] conjunctiva and NL buccal mucosa Neck: Supple, no tenderness Endocrine: No Thyromegaly. Vascular: No JVD or carotid bruit. Lymphatic: No cervical lymphadenopathy. Chest: CTA no DTP. Patient has a port in the right upper quadrant of the chest Heart RRR, no extra sound or murmur. Abd: Soft, no tenderness, no rebound and no rigidity. Increase abd girth therefore clinically I could not exclude the possibility of intra abd mass or organomegaly. LE: No cyanosis or clubbing, no varices or edema. Neuro: A A O. Nl speech, comprehension and attention. Nl and symetrical motor and tone examination through out. []] Constitutional Vital Signs, click to edit/add: Last Vital Signs Temp 97.4 F L 11/21/24 10:56 Pulse 80 11/21/24 10:56 Resp 18 11/21/24 10:56 BP 117/81 11/21/24 10:56 Pulse Ox 98 11/21/24 10:56 O2 Del Method Room Air 11/21/24 10:56 Discharge Plan Discharge Disposition: Home, Self-Care Discharge Medications: Continued (DME) blood-glucose meter [OneTouch Ultra2 Meter] Misc MISCELLANEOUS (DME) OneTouch Ultra Test Strip MISCELLANEOUS fentanyl 25 mcg/hr patch 72 hour 1 patch transdermal Q72H (DME) FreeStyle Hunter 3 Plus Sensor Device MISCELLANEOUS hydrocodone-acetaminophen 5-325 mg tablet 1 tab PO Q6H PRN (Reason: pain) (DME) lancets [OneTouch Delica Plus Lancet] 30 gauge misc MISCELLANEOUS (DME) pen needle, diabetic [BD Stefania 2nd Gen Pen Needle] 32 gauge x 5/32 needle MISCELLANEOUS prucalopride 2 mg tablet 2 mg PO DAILY trazodone 100 mg tablet 100 mg PO .qhs mirtazapine 45 mg tablet 45 mg PO BEDTIME aspirin 81 mg tablet,chewable 1 tab PO .qd Rx Instructions: with breakfast clopidogrel 75 mg tablet 75 mg PO .qd colchicine 0.6 mg tablet 0.3 mg PO .qod fentanyl 12 mcg/hr patch 72 hour 1 patch transdermal Q72H metoprolol succinate 25 mg tablet extended release 24 hr 25 mg PO .qd ranolazine 500 mg tablet extended release 12 hr 500 mg PO Q12H rosuvastatin 40 mg tablet 40 mg PO .qhs verapamil 40 mg tablet 40 mg PO Q8H methocarbamol 500 mg tablet 750 mg PO Q6H PRN (Reason: Muscle spasm) hydroxyzine HCl 25 mg tablet 25 mg PO BID PRN (Reason: anxiety) topiramate 100 mg tablet 100 mg PO BID metoclopramide HCl 10 mg tablet 10 mg PO BID PRN (Reason: nausea and vomiting) levothyroxine 75 mcg tablet 75 mcg PO DAILY escitalopram oxalate 20 mg tablet 20 mg PO DAILY acetaminophen [Pain Relief (acetaminophen)] 325 mg tablet 650 mg PO Q4H PRN (Reason: pain) ergocalciferol (vitamin D2) 1,250 mcg (50,000 unit) capsule 1,250 mcg PO .Q7 Discontinued tramadol 50 mg tablet 50 mg PO Q6H PRN (Reason: pain) Qty: 28 0RF Print Language: [place] Activity Restrictions/Additional Instructions: I may not have addressed or treated all of your medical illnesses or the abnormal blood work or imaging studies during this hospitalization. Please ask your primary care provider to obtain [place] records entirely to follow up on all of the abnormal physical, laboratory, and imaging findings that I have not addressed. Please return back to the emergency room or seek medical attention if your symptoms worsen or return. [place], you are taking a lot of medications that could cause you to have adverse side effect or potentially can cause drug that should drug interaction with potential medical complications. These potential complications could potentially be dangerous to your health. Please ask your primary care doctor, pain management and the psychiatrist to simplify your regimen within the next week or 2 to reduce your risk having issues related to that. Discharging you from [place] does not mean that your medical care ends here and now. You may still need additional monitoring, work up, investigation, and treatment plan to be handled from this point on by out patient providers including your primary care provider and specialists. For any medication question, please contact your retail pharmacist or your primary care provider. Thank you. Forms: Portal Instructions Follow Up Appointments: Mon. 11/27 @ 9:45am with Dr. Alas [phone] Wed. 12/06 @ 11:20am with Dr. Collins [facility] Cardiology at [facility] [phone] your 11/28 cardio appt. in [place] has been cancelled your 12/04 cardio appt. has been cancelled
--- NOTE | 2024-11-23 13:27 | CM.DCFOLLOWU ---
1st attempt 11/23/24, no answer, phone went to [facility]
== END 2024-11-21 12:35 | disposition home or self-care (01) ==
LOC: ER 13:37 → MS 11-21 11:36
PROVIDERS: Admitting Provider Hospitalist; Emergency Provider Emergency Medicine; PCP Family Medicine; Visit Provider Internal Medicine
DX: R07.89 Other chest pain (principal); K31.84 Gastroparesis; R11.2 Nausea with vomiting, unspecified; Z79.82 Long term (current) use of aspirin; Z79.02 Long term (current) use of antithrombotics/antiplatelets; Z79.899 Other long term (current) 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; D64.9 Anemia, unspecified; Z98.84 Bariatric surgery status; I25.42 Coronary artery dissection; I24.1 Dressler's syndrome; G89.29 Other chronic pain; F32.A Depression, unspecified; F41.9 Anxiety disorder, unspecified; I10 Essential (primary) hypertension; E78.5 Hyperlipidemia, unspecified; J45.909 Unspecified asthma, uncomplicated; G47.33 Obstructive sleep apnea (adult) (pediatric); E03.9 Hypothyroidism, unspecified; K21.9 Gastro-esophageal reflux disease without esophagitis; M79.7 Fibromyalgia; E11.9 Type 2 diabetes mellitus without complications; K58.9 Irritable bowel syndrome, unspecified
CPT/HCPCS: 36415; 36591; 71045; 80048; 80053; 84484; 84703; 85007; 85025; 85027; 93005; 96374; 96375; 96376; 99285; G0378; G0463; J0780; J1171; J1200; J2270; J2405; J3490

== ENCOUNTER 2024-11-30 09:33 | Emergency (ER) | payer MEDICAID, SELFPAY ==
[2024-11-30 09:59] VITALS: BP 125/77; PULSE 68; TEMP 36.4; O2SAT 100; BMI 29.1
[2024-11-30 10:31] LABS: Hematocrit 31.3 % (36.0-48.0); Hemoglobin 10.3 g/dL (12.0-16.0); Immature Granulocytes Abs Auto 0.00 10^3/uL (0.00-0.03); Immature Granulocytes Pct Auto 0.0 % (0.0-0.5); Lymphocytes Absolute Auto 1.3 10^3/uL (1.2-3.8); Mean Corpuscular HGB Conc 32.9 g/dL (29.9-35.2); Mean Corpuscular Hemoglobin 29.3 pg (26.7-34.0); Mean Corpuscular Volume 89.2 fL (81.0-99.0); Platelet Count 217 10^3/uL (150-450); Red Blood Count 3.51 10^6/uL (4.20-5.40); White Blood Count 3.8 10^3/uL (4.0-11.0)
[2024-11-30 10:34] LABS: Glucose Urine UA NEGATIVE (NEGATIVE)
[2024-11-30 10:45] LABS: Crystals Seen? Seen #/HPF (None Seen)
[2024-11-30 10:46] LABS: Cast Seen? NONE SEEN #/LPF (NONE SEEN); Urine Culture Indicated NO
--- NOTE | 2024-11-30 10:48 | CT_ITS ---
[address] [address] Patient Name: JUAN KONG MRN: [id number] date: 1990 Sex: F Assigned Patient Location: ER Current Patient Location: ER Accession/Order Number: [id number] Exam Date: 11/30/2024 11:00 Report Date: 11/30/2024 11:55 At the request of: WALKER WILLOUGHBY MD Procedure: CT abdomen pelvis wo con CT ABDOMEN AND PELVIS WITHOUT INTRAVENOUS CONTRAST: CLINICAL HISTORY: flank pain with urinary retention left-sided flank pain COMPARISON: 11/14/2024 CT angiogram TECHNIQUE: Spiral images were obtained through the abdomen and pelvis without intravenous contrast. This CT exam was performed using one or more following dose reduction techniques: Automated exposure control, adjustment of the mA and/or kV according to patient size, or use of iterative reconstruction technique. FINDINGS: Lung Bases: [No focal opacity] Organs:Multifocal hypodensities suggestive cysts some which are subcentimeter in size and small for adequate interpretation. Otherwise gallbladder absent. Punctate right lower pole calculus nonobstructed. No hydronephrosis. No left-sided nephrolithiasis. Otherwise spleen, adrenals and pancreas unremarkable.[ GI: Gastric bypass surgery.[Appendectomy. No pericecal moderate changes. No bowel obstruction. Sjed-cb-llnryatd retained stool. Pelvis:[Bladder collapsed with Costello catheter in situ. Uterus absent. No adnexal mass.] Peritoneum/Retroperitoneum:No free air or free fluid. No bulky adenopathy.[Aorta is nonaneurysmal. Abd wall/Bones: [No suspicious osseous lesion. CT/CT abdomen pelvis wo con IMPRESSION: Punctate right-sided nephrolithiasis noted. No hydronephrosis or obstructive uropathy identified. Otherwise negative for acute inflammatory process or bowel obstruction. Impression dictated by: Tio Lundberg M.D. 11/30/2024 11:55 AM Dictation Location: [place] [address] Electronically authenticated by: [id number] Y Date: 11/30/2024 11:55
[2024-11-30 10:54] LABS: Alanine Aminotransferase 26 U/L (14-59); Albumin Globulin Ratio 1.0; Albumin Level 3.2 g/dL (3.4-5.0); Alkaline Phosphatase 66 U/L (46-116); Anion Gap 15.1; Aspartate Amino Transferase 38 U/L (15-37); Blood Urea Nitrogen 9.0 mg/dL (7.0-18.0); Calcium 8.2 mg/dL (8.5-10.1); Carbon Dioxide 22.7 mmol/L (21.0-32.0); Chloride 109 mmol/L (98-107); Estimated GFR (African America >60 (>=60 mL/min/1.73m^2); Estimated GFR (Non-African Ame >60 (>=60 mL/min/1.73m^2); Globulin 3.3 g/dL; Glucose 90 mg/dL (74-106); Potassium 3.8 mmol/L (3.5-5.1); Sodium 143 mmol/L (136-145); Total Protein 6.5 g/dL (6.4-8.2)
--- NOTE | 2024-11-30 11:18 | ED.ABDPAIN1 ---
HPI - Abdominal Pain General Chief Complaint: Abdominal Pain Stated Complaint: FLANK PAIN, NAUSEA Time Seen by Provider: 11/30/24 10:16 Source: patient Mode of arrival: walk-in Limitations: no limitations History of Present Illness HPI narrative: The patient is a 34-year-old female with history of multiple pathology who recently almost a week ago had urine retention and had a Costello catheter placed The patient denies any blood in her urine but she was started on Keflex for possible infection Patient coming to the ER with lower back pain that started over the last 24 hours No fever no chills but the patient have a history of chronic nausea Related Data Home Medications ?Medication ?Instructions ?Recorded ?Confirmed hydroxyzine HCl 25 mg tablet 25 mg PO BID PRN anxiety 09/17/22 11/19/24 topiramate 100 mg tablet 100 mg PO BID 09/17/22 11/19/24 metoclopramide HCl 10 mg tablet 10 mg PO BID PRN nausea and 06/14/23 11/19/24 vomiting escitalopram oxalate 20 mg tablet 20 mg PO DAILY 06/15/23 11/19/24 levothyroxine 75 mcg tablet 75 mcg PO DAILY 06/15/23 11/19/24 acetaminophen 325 mg tablet (Pain 650 mg PO Q4H PRN pain 06/24/23 11/19/24 Relief (acetaminophen)) blood sugar diagnostic ([facility] 03/29/24 11/19/24 Ultra Test strips) [facility] 03[facility]29/24 11/19/24 Ultra2 Meter) blood-glucose sensor (FreeStyle 03/29/24 11/19/24 Hunter 3 Plus Sensor device) fentanyl 25 mcg/hr transdermal 1 patch transdermal Q72H 03/29/24 11/19/24 patch hydrocodone 5 mg-acetaminophen 325 1 tab PO Q6H PRN pain 03/29/24 11/19/24 mg tablet lancets 30 gauge (OneTouch Delica 03/29/24 11/19/24 Plus Lancet) pen needle, diabetic 32 gauge x 03/29/24 11/19/24 (BD Stefania 2nd Gen Pen Needle) prucalopride 2 mg tablet 2 mg PO DAILY 03/29/24 11/19/24 trazodone 100 mg tablet 100 mg PO .qhs 03/29/24 11/19/24 ergocalciferol (vitamin D2) 1,250 1,250 mcg PO .Q7 06/21/24 11/19/24 mcg (50,000 unit) capsule mirtazapine 45 mg tablet 45 mg PO BEDTIME 08/16/24 11/19/24 aspirin 81 mg chewable tablet 1 tab PO .qd 11/19/24 11/19/24 clopidogrel 75 mg tablet 75 mg PO .qd 11/19/24 11/19/24 colchicine 0.6 mg tablet 0.3 mg PO .qod 11/19/24 11/19/24 fentanyl 12 mcg/hr transdermal 1 patch transdermal Q72H 11/19/24 11/19/24 patch methocarbamol 500 mg tablet 750 mg PO Q6H PRN Muscle spasm 11/19/24 11/19/24 metoprolol succinate 25 mg 25 mg PO .qd 11/19/24 11/19/24 tablet,extended release 24 hr ranolazine 500 mg tablet,extended 500 mg PO Q12H 11/19/24 11/19/24 release,12 hr rosuvastatin 40 mg tablet 40 mg PO .qhs 11/19/24 11/19/24 verapamil 40 mg tablet 40 mg PO Q8H 11/19/24 11/19/24 Previous Rx's ?Medication ?Instructions ?Recorded meloxicam 7.5 mg tablet 7.5 mg PO DAILY PRN pain #3 tabs 11/30/24 Allergies Allergy/AdvReac Type Severity Reaction Status Date / Time adhesive Allergy Rash Verified 11/30/24 09:59 NSAIDS (Non-Steroidal Allergy intolerance Verified 11/30/24 09:59 Anti-Inflamma codeine AdvReac Vomiting Verified 11/30/24 09:59 Review of Systems ROS Status of ROS 10 or more systems reviewed and unremarkable except as noted in history and below [facility] Medical History (Updated 11/30/24 @ 13:28 by Barbara Benítez MD) Coronary artery dissection ?I25.42 - Coronary artery dissection (ICD-10) Hypoglycemia ?E16.2 - Hypoglycemia, unspecified (ICD-10) Gastroenteritis ?K52.9 - Noninfective gastroenteritis and colitis, unspecified (ICD-10) Feeding by G-tube ?Z93.1 - Gastrostomy status (ICD-10) Abdominal pain ?R10.9 - Unspecified abdominal pain (ICD-10) Small bowel intussusception ?K56.1 - Intussusception (ICD-10) Nausea and vomiting ?R11.2 - Nausea with vomiting, unspecified (ICD-10) Flank pain ?R10.9 - Unspecified abdominal pain (ICD-10) Abdominal pain ?R10.9 - Unspecified abdominal pain (ICD-10) Acute abdomen ?R10.0 - Acute abdomen (ICD-10) Intractable nausea and vomiting ?R11.2 - Nausea with vomiting, unspecified (ICD-10) Intractable abdominal pain ?R10.9 - Unspecified abdominal pain (ICD-10) Depression ?F32.A - Depression, unspecified (ICD-10) Asthma ?J45.909 - Unspecified asthma, uncomplicated (ICD-10) Dyspareunia Pelvic pain ?R10.2 - Pelvic and perineal pain (ICD-10) Ovarian cyst ?N83.209 - Unspecified ovarian cyst, unspecified side (ICD-10) PONV (postoperative nausea and vomiting) ?R11.2 - Nausea with vomiting, unspecified (ICD-10) ?Z98.890 - Other specified postprocedural states (ICD-10) PCOS (polycystic ovarian syndrome) ?E28.2 - Polycystic ovarian syndrome (ICD-10) Hypothyroidism (acquired) ?E03.9 - Hypothyroidism, unspecified (ICD-10) Anxiety ?F41.9 - Anxiety disorder, unspecified (ICD-10) GERD (gastroesophageal reflux disease) ?K21.9 - Gastro-esophageal reflux disease without esophagitis (ICD-10) Sleep apnea ?G47.30 - Sleep apnea, unspecified (ICD-10) Anemia ?D64.9 - Anemia, unspecified (ICD-10) Fibromyalgia ?M79.7 - Fibromyalgia (ICD-10) Syncope (07/07/13) ?R55 - Syncope and collapse (ICD-10) Shingles ?B02.9 - Zoster without complications (ICD-10) Headache ?R51.9 - Headache, unspecified (ICD-10) Migraine ?G43.909 - Migraine, unspecified, not intractable, without status migrainosus (ICD-10) Mechanical ileus (01/31/20) ?K56.609 - Unspecified intestinal obstruction, unspecified as to partial versus complete obstruction (ICD-10) COVID-19 (~02/2020) ?U07.1 - COVID-19 (ICD-10) Kidney stones ?N20.0 - Calculus of kidney (ICD-10) Surgical History S/P percutaneous endoscopic gastrostomy (PEG) tube placement ?Z93.1 - Gastrostomy status (ICD-10) 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 - Celiac artery compression syndrome (ICD-10) H/O shoulder surgery (2022) ?Z98.890 - Other specified postprocedural states (ICD-10) History of hip surgery ?Z98.890 - Other specified postprocedural states (ICD-10) S/P right knee arthroscopy ?Z98.890 - Other specified postprocedural states (ICD-10) S/P left knee arthroscopy ?Z98.890 - Other specified postprocedural states (ICD-10) Hx of tonsillectomy ?Z90.89 - Acquired absence of other organs (ICD-10) History of thoracic surgery (~2021) ?Z98.890 - Other specified postprocedural states (ICD-10) History of esophagogastroduodenoscopy (EGD) (10/04/13) ?Z98.890 - Other specified postprocedural states (ICD-10) History of cholecystectomy (10/06/13) ?Z90.49 - Acquired absence of other specified parts of digestive tract (ICD-10) Delivery by section (~2016) Delivery by section (01/17/18) H/O colonoscopy (~2018) ?Z98.890 - Other specified postprocedural states (ICD-10) S/P right knee arthroscopy (07/21/18) ?Z98.890 - Other specified postprocedural states (ICD-10) Delivery by section (06/19/19) History of appendectomy (09/25/19) ?Z90.49 - Acquired absence of other specified parts of digestive tract (ICD-10) H/O laparoscopy (11/10/19) ?Z98.890 - Other specified postprocedural states (ICD-10) History of liver biopsy (~04/2020) ?Z98.890 - Other specified postprocedural states (ICD-10) H/O laparoscopy (07/18/20) ?Z98.890 - Other specified postprocedural states (ICD-10) H/O arthroscopy of right knee (08/07/20) ?Z98.890 - Other specified postprocedural states (ICD-10) S/P laparoscopic sleeve gastrectomy (09/03/20) ?Z98.84 - Bariatric surgery status (ICD-10) H/O: hysterectomy (11/12/20) ?Z90.710 - Acquired absence of both cervix and uterus (ICD-10) History of hernia repair (03/20/21) ?Z98.890 - Other specified postprocedural states (ICD-10) ?Z87.19 - Personal history of other diseases of the digestive system (ICD-10) Family History Other Family history of cancer Family history of diabetes mellitus Family history of hypertension Family history of myocardial infarction PONV (postoperative nausea and vomiting) Social History Within the past year, how often did you have a drink containing alcohol: never Score interpretation: A score less than 3 is consistent with normal alcohol consumption. Smoking status: Never smoker Non-prescribed substance use: denies use Previous occupational history: disabled Known occupational exposures/hazards details: disabled Highest level of school completed/degree received: Master's degree Are you now , , , , never or living with a partner: In a typical week, how many times do you talk on the telephone with family, friends, or neighbors: 3 or more times per week How often do you get together with friends or relatives: twice per week How often do you attend bahai or alevism services: 4 or more times per year Do you belong to any clubs or organizations such as bahai groups unions, fraternal or athletic groups, or school groups: no Total score: 3 Score interpretation: A score of greater than or equal to 2 indicates the lowest level of social isolation. Little interest or pleasure in doing things: several days Feeling down, depressed, or hopeless: not at all Feel stressed/tense/nervous/anxious/difficulty sleeping: to some extent Do you think of yourself as: straight/heterosexual Gender Identity: female Exam Narrative Exam Narrative: Nurses notes and vital signs reviewed and patient is not hypoxic. General: Well-appearing and in no apparent distress. Skin: Warm, dry, no pallor noted. No rash. Head: Normocephalic, atraumatic. Neck: Supple, non-tender. Eye: Pupils are equal, round and EOMI. No scleral icterus. Ears, Nose, Mouth, and Throat: TM are clear, no nasal mucosal hypertrophy. Oral mucosa is moist, no posterior oropharynx erythema, uvula is mid-line Cardiovascular: Regular Rate and Rhythm without murmur, gallop or rub. Respiratory: No accessory muscle use or respiratory distress. Lungs are clear to auscultation, no wheezing, rales or rhonchi Chest Wall: Medical port in the right upper chest Back: No midline thoracic or lumbar vertebral tenderness. Bilateral CVA tenderness Musculoskeletal: normal ROM, no calf or popliteal tenderness, no lower extremity edema/swelling GI: Abdomen is soft, non-distended. Normal bowel sounds. No masses appreciated. No tenderness to palpation. No rebound, guarding, or rigidity noted. And there is a Costello catheter in place Neurological: A&O x4. No cranial nerve dysfunction observed. No truncal ataxia. Moves all extremities. Sensation intact. Psychiatric: Cooperative and interactive. Normal mood and affect. Constitutional Vital Signs, click to edit/add: Last Vital Signs Temp 97.5 F L 11/30/24 09:59 Pulse 68 11/30/24 09:59 Resp 16 11/30/24 09:59 BP 125/77 11/30/24 09:59 Pulse Ox 100 11/30/24 09:59 O2 Del Method Room Air 11/30/24 09:59 Course Vital Signs Vital signs: Vital Signs Temperature 97.5 F L 11/30/24 09:59 Pulse Rate 68 11/30/24 09:59 Respiratory Rate 16 11/30/24 09:59 Blood Pressure 125/77 11/30/24 09:59 Pulse Oximetry 100 11/30/24 09:59 Oxygen Delivery Method Room Air 11/30/24 09:59 Temperature 97.5 F L 11/30/24 09:59 Pulse Rate 68 11/30/24 09:59 Respiratory Rate 16 11/30/24 09:59 Blood Pressure 125/77 11/30/24 09:59 Pulse Oximetry 100 11/30/24 09:59 Oxygen Delivery Method Room Air 11/30/24 09:59 MDM - Abdominal Pain MDM Narrative Medical decision making narrative: The patient CBC and chemistry showed no acute pathology I did review the patient's urine from different and the analysis did not show any significant infection signs The patient had a CT without contrast that confirmed that there is no urine retention and there is no hydronephrosis the patient have a punctate right nonobstructive kidney stone Right now the patient is treated in the ER with Zofran She does have a chronic pain and that was she was provided with Dilaudid in the ER But the patient back pain mostly secondary to muscular pain I did explain to the patient as well that Benadryl that she takes at IV on a daily basis through her port is mostly is the cause for the urine retention as well and that need to be discussed with her primary care The patient is to follow up with primary care physician in next 2-3 days or to return to the emergency department should any of the signs or symptoms worsen or new symptoms develop. The patient agrees with the following Diagnosis and Treatment plan and the patient will be discharged home. The patient was provided with a prescription for Mobic as she does not actually have any allergic reaction to NSAIDs but it was only for 3 days as she takes Plavix to decrease the risk of bleeding and she is to take that with food The patient is to follow up with primary care physician in next 2-3 days or to return to the emergency department should any of the signs or symptoms worsen or new symptoms develop. The patient agrees with the following Diagnosis and Treatment plan and the patient will be discharged home. Lab Data Labs: Lab Results 11/30/24 11/30/24 Range/Units 10:23 10:25 WBC 3.8 L (4.0-11.0) 10^3/uL RBC 3.51 L (4.20-5.40) 10^6/uL Hgb 10.3 L (12.0-16.0) g/dL Hct 31.3 L (36.0-48.0) % MCV 89.2 (81.0-99.0) fL MCH 29.3 (26.7-34.0) pg MCHC 32.9 (29.9-35.2) g/dL RDW 13.8 (11.0-15.0) % Plt Count 217 (150-450) 10^3/uL MPV 10.8 (9.5-13.5) fL Neut % (Auto) 53.1 (43.0-75.0) % Lymph % (Auto) 34.2 (20.5-60.0) % [place] % (Auto) 7.4 (1.7-12.0) % Eos % (Auto) 4.2 (0.9-7.0) % Baso % (Auto) 1.1 (0.2-2.0) % Neut # (Auto) 2.0 (1.4-6.5) 10^3/uL Lymph # (Auto) 1.3 (1.2-3.8) 10^3/uL [place] # (Auto) 0.3 (0.3-0.8) 10^3/uL Eos # (Auto) 0.2 (0.0-0.7) 10^3/uL Baso # (Auto) 0.0 (0.0-0.1) 10^3/uL Abs Immat Gran (auto) 0.00 (0.00-0.03) 10^3/uL Imm/Tot Granulo (auto) 0.0 (0.0-0.5) % Sodium 143 (136-145) mmol/L Potassium 3.8 (3.5-5.1) mmol/L Chloride 109 H (98-107) mmol/L Carbon Dioxide 22.7 (21.0-32.0) mmol/L Anion Gap 15.1 BUN 9.0 (7.0-18.0) mg/dL Creatinine 0.66 (0.55-1.02) mg/dL Est GFR ( Amer) >60 (>=60 mL/min/1.73m^2) Est GFR (Non-Af Amer) >60 (>=60 mL/min/1.73m^2) BUN/Creatinine Ratio 13.6 Glucose 90 (74-106) mg/dL Calcium 8.2 L (8.5-10.1) mg/dL Total Bilirubin 0.3 (0.2-1.0) mg/dL AST 38 H (15-37) U/L ALT 26 (14-59) U/L Alkaline Phosphatase 66 (46-116) U/L Total Protein 6.5 (6.4-8.2) g/dL Albumin 3.2 L (3.4-5.0) g/dL Globulin 3.3 g/dL Albumin/Globulin Ratio 1.0 Serum HCG, Qual Negative (NEGATIVE) Urine Color Yellow (YELLOW) Urine Clarity Clear (CLEAR) Urine pH 5.5 (5.0-9.0) Ur Specific [place] >=1.030 A (1.005-1.025) Urine Protein Negative (NEG/TRACE) mg/dL Urine Glucose (UA) Negative (NEGATIVE) mg/dL Urine Ketones Negative (NEGATIVE) mg/dL Urine Occult Blood Moderate A (NEGATIVE) Urine Nitrite Negative (NEGATIVE) Urine Bilirubin Negative (NEGATIVE) Urine Urobilinogen 0.2 (0.2-1.0) EU/dL Ur Leukocyte Esterase Negative (NEGATIVE) Urine RBC 10-20 A (0-2) #/HPF Urine WBC 0-2 A (NONE SEEN) #/HPF Ur Squamous Epith Cells Few A (NONE/RARE) #/LPF Urine Crystals Seen A (None Seen) #/HPF Calcium Oxalate Crystal Few Urine Bacteria None seen (NONE SEEN) #/HPF Urine Casts None seen (NONE SEEN) #/LPF Urine Mucus Trace A (NONE SEEN) Ur Culture Indicated? No Discharge Plan Discharge Chief Complaint: Abdominal Pain Clinical Impression: Bladder retention of urine, Back pain Patient Disposition: Home, Self-Care Time of Disposition Decision: 13:28 Condition: Good Mode of Transportation: Private Vehicle Prescriptions / Home Meds: New meloxicam 7.5 mg tablet 7.5 mg PO DAILY PRN (Reason: pain) Qty: 3 0RF Rx Instructions: please take with food No Action (DME) blood-glucose meter [OneTouch Ultra2 Meter] Mis MISCELLANEOUS (DME) OneTouch Ultra Test Strip MISCELLANEOUS fentanyl 25 mcg/hr patch 72 hour 1 patch transdermal Q72H (DME) FreeStyle Hunter 3 Plus Sensor Device MISCELLANEOUS hydrocodone-acetaminophen 5-325 mg tablet 1 tab PO Q6H PRN (Reason: pain) (DME) lancets [OneTouch Delica Plus Lancet] 30 gauge misc MISCELLANEOUS (DME) pen needle, diabetic [BD Stefania 2nd Gen Pen Needle] 32 gauge x 5/32 needle MISCELLANEOUS prucalopride 2 mg tablet 2 mg PO DAILY trazodone 100 mg tablet 100 mg PO .qhs mirtazapine 45 mg tablet 45 mg PO BEDTIME aspirin 81 mg tablet,chewable 1 tab PO .qd Rx Instructions: with breakfast clopidogrel 75 mg tablet 75 mg PO .qd colchicine 0.6 mg tablet 0.3 mg PO .qod fentanyl 12 mcg/hr patch 72 hour 1 patch transdermal Q72H metoprolol succinate 25 mg tablet extended release 24 hr 25 mg PO .qd ranolazine 500 mg tablet extended release 12 hr 500 mg PO Q12H rosuvastatin 40 mg tablet 40 mg PO .qhs verapamil 40 mg tablet 40 mg PO Q8H methocarbamol 500 mg tablet 750 mg PO Q6H PRN (Reason: Muscle spasm) hydroxyzine HCl 25 mg tablet 25 mg PO BID PRN (Reason: anxiety) topiramate 100 mg tablet 100 mg PO BID metoclopramide HCl 10 mg tablet 10 mg PO BID PRN (Reason: nausea and vomiting) levothyroxine 75 mcg tablet 75 mcg PO DAILY escitalopram oxalate 20 mg tablet 20 mg PO DAILY acetaminophen [Pain Relief (acetaminophen)] 325 mg tablet 650 mg PO Q4H PRN (Reason: pain) ergocalciferol (vitamin D2) 1,250 mcg (50,000 unit) capsule 1,250 mcg PO .Q7 Print Language: Scottish Instructions: Back Pain (ED) Referrals: Thomas Alas MD [Primary Care Provider, Family Practice] - 1 week Discharge Date/Time: 11/30/24 13:44
[2024-11-30] MEDS: FAMOTIDINE/PF 20 MG/2 ML VIAL IV (11:27)
[2024-11-30] MEDS: HYDROMORPHONE HCL 0.5 MG/0.5 ML SYRINGE IV ×2 (11:44→13:33)
== END 2024-11-30 13:44 | disposition home or self-care (01) ==
PROVIDERS: Emergency Provider Emergency Medicine; PCP Family Medicine
DX: M54.9 Dorsalgia, unspecified (principal); R33.9 Retention of urine, unspecified; Z98.84 Bariatric surgery status; Z90.49 Acquired absence of other specified parts of digestive tract; Z90.710 Acquired absence of both cervix and uterus; G89.29 Other chronic pain; R11.2 Nausea with vomiting, unspecified; D62 Acute posthemorrhagic anemia
CPT/HCPCS: 36415; 36592; 74176; 80053; 81001; 84703; 85025; 96361; 96374; 96375; 96376; 99284; J0780; J1171; J1200; J2405; J3490

== ENCOUNTER 2024-12-04 13:34 | Emergency (ER) | payer MEDICAID, SELFPAY ==
--- OUTSIDE RECORDS SUMMARY | 2024-11-23 17:32 | XMS_ITS | Encounter Summary ---
Author Organization [facility] Address [address], [address] [place] [address] Care Team Providers Care Cooler Operator Name Role Phone Thomas Alas MD Primary Care Provider [phone] Reason for Visit * Reason Comments Urinary Retention Patient sent to the Emergency Department by her PCP for urinary retention. Patient reports that she has not voided for over 24 hours and is experiencing severe pain pressure and nausea. Encounter Details Date Type Department Care Team (Late st Contact Info) Description 11/23/2024 5:32 PM EDT - 11/23/2024 8:26 PM EDT Emergency [facility] Emergency Department [address] [place] [id number] Shelley Sanz, DO [facility] [place] [address] Acute urinary retention (Primary Dx); Acute UTI Discharge Disposition: Home or Self Care Social History Tobacco Use Types Packs/Day [...] IP Abuse Scr eening Answer Date Recorded Physical abuse Denies 11/23/2024 Verbal abuse Denies 11/23/2024 Emotional abuse Denies 11/23/2024 Financial abuse Denies 11/23/2024 Sexual abuse Denies 11/23/2024 Comments No Sex and Gender Information Value Date Recorded Sex Assigned at Not on file Legal Sex Female 2:41 PM EST Gender Identity Not on file Sexual Orientation Not on file documented as of this encounter Last Filed Vital Signs Vital Sign Reading Time Taken Comments Blood Pressure 112/65 11/23/2024 8:26 PM EDT Pulse 71 11/23/2024 8:26 PM EDT Temperature 36.7 C (98.1 F) 11/23/2024 8:26 PM EDT Respiratory Rate 18 11/23/2024 8:26 PM EDT Oxygen Saturation 99% 11/23/2024 8:26 PM EDT Inhaled Oxygen Concentration - - Weight 81.6 kg (180 lb) 11/23/2024 5:27 PM EDT Height 167.6 cm (5' 6 ) 11/23/2024 5:27 PM EDT Body Mass Index 29.05 11/23/2024 5:27 PM EDT documented in this encounter Discharge Instructions * Discharge Instructions* Pablo Atwood DO - 11/23/2024 7:55 PM EDT Please take antibiotics as prescribed and call your urologist first thing in the morning to schedule follow-up appointment for eventual Costello catheter removal. * Attachments The following attachments cannot be sent through Care Everywhere. * Urinary Retention (Samoan) documented in this encounter Medications at Time [...] 3 DAYS WITH A 25MCG PATCH 5 acetaminophen (TYLENOL) 325 MG tablet Take 2 [...] skin every 72 hours 10 patch 3 pantoprazole sodium (PROTONIX) 40 MG PACK packet Take 1 packet by mouth every morning (before breakfast) 30 each 3 3 ondansetron (ZOFRAN-ODT) 4 MG disintegrating tablet Take 1 tablet by mouth 3 times daily as needed for Nausea or Vomiting 21 tablet 10/17/202 3 busPIRone (BUSPAR) 10 MG tablet Take [...] times daily for 7 days 21 capsule 5 12/01/19 25 metoclopramide (REGLAN) 10 MG tablet Take 1 tablet by mouth 2 times daily as needed 4 12/03/19 25 documented as of this encounter Plan of Treatment Not on file documented as of this encounter Procedures Procedure Name Priority Date/Time Associated Diagnosis Comments EKG 12-LEAD Routine 11/23/2024 6:44 PM EDT CBC WITH AUTO DIFFERENTIAL STAT 11/23/2024 6:16 PM EDT TROPONIN STAT 11/23/2024 6:16 PM EDT BASIC METABOLIC PANEL STAT 11/23/2024 6:16 PM EDT URINALYSIS WITH REFLEX TO CULTURE STAT 11/23/2024 5:40 PM EDT MICROSCOPIC URINALYSIS Routine 11/23/2024 5:40 PM EDT documented in this encounter Results * EKG 12 Lead (11/23/2024 6:44 PM EDT) Ventricular Rate 76 BPM [facility] Atrial Rate 76 BPM [facility] P-R Interval 158 ms [facility] QRS Duration 88 ms [facility] Q-T Interval 432 ms [facility] QTc Calculation (Bazett) 486 ms [facility] RADIOLOGY P [place] 74 degrees [facility] RADIOLOGY R [place] 57 degrees [facility] RADIOLOGY T [place] 49 degrees [facility] RADIOLOGY 11/23/2024 6:44 PM EDT Narrative [facility] RADIOLOG[facility] - 11/23/2024 11:05 PM EDT [...] Brad Good ([id number]) on 11/23/2024 11:05:14 PM us Shelley Sanz DO ECG ORDERABLES Final Resul t [facility] RADIOLOG[facility] * Troponin (11/23/2024 6:16 PM EDT) [facility] Troponin, High Sensitivity <6 0 - 14 ng/L 11/23/2024 6:16 PM EDT [facility] Comment:High Sensitivity Tro ponin values cannot be compared with other Troponin methodologies. Blood BLOOD SPECIMEN / Unknown 11/23/2024 6:16 PM EDT 11/23/2024 7:20 PM EDT Shelley Sanz DO CHEMISTRY ORDERABLES Final Result [facility] [address] [place] [address], [facility] [phone] * (ABNORMAL) Basic Metabolic Panel (11/23/2024 6:16 PM EDT) [facility] Sodium 138 136 - 145 mmol/L 11/23/2024 6:16 PM EDT [facility] Potassium 3.7 3.7 - 5.3 mmol/L 11/23/2024 6:16 PM EDT [facility] Chloride 106 98 - 107 mmol/L 11/23/2024 6:16 PM EDT [facility] CO2 23 20 - 31 mmol/L 11/23/2024 6:16 PM EDT [facility] Anion Gap 9 9 - 16 mmol/L 11/23/2024 6:16 PM EDT [facility] Glucose 83 74 - 99 mg/dL 11/23/2024 6:16 PM EDT [facility] BUN 9 6 - 20 mg/dL 11/23/2024 6:16 PM T [facility] Creatinine 0.8 0.50 - 0.90 mg/dL 11/23/2024 6:16 PM EDT [facility] Est, Glom Filt Rate >90 >60 mL/min/1.7 3m2 11/23/2024 6:16 PM EDT [facility] Comment: These results are not intended [...] that affects renal tubular secretion. BUN/Creatinine Ratio 11 9 - 20 11/23/2024 6:16 PM EDT [facility] Calcium 8.5(L) 8.6 - 10.4 mg/dL 11/23/2024 6:16 PM T [facility] Blood BLOOD SPECIMEN / Unknown 11/23/2024 6:16 PM EDT 11/23/2024 6:30 PM EDT us Shelley Sanz DO CHEMISTRY ORDERABLES Final Result [facility] [address] [place] [address] * (ABNORMAL) CBC with Auto Differential (11/23/2024 6:16 PM EDT) [facility] WBC 6.0 3.5 - 11.3 k/uL 11/23/2024 6:16 PM EDT [facility] RBC 3.41(L) 3.95 - 5.11 m/uL 11/23/2024 6:16 PM EDT [facility] Hemoglobin 10.0(L) 11.9 - 15.1 g/dL 11/23/2024 6:16 PM [facility] Hematocrit 30.9(L) 36.3 - 47.1 % 11/23/2024 6:16 PM [facility] MCV 90.6 82.6 - 102.9 fL 11/23/2024 6:[facility] MCH 29.3 25.2 - 33.5 pg 11/23/2024 6:16 PM [facility] MCHC 32.4 28.4 - 34.8 g/dL 11/23/2024 6:16 PM [facility] RDW 13.8 11.8 - 14.4 % 11/23/2024 6:16 PM [facility] Platelets 337 138 - 453 k/uL 11/23/2024 6:16 PM [facility] MPV 10.6 8.1 - 13.5 fL 11/23/2024 6:16 PM [facility] NRBC Automated 0.0 0.0 per 100 WBC 11/23/2024 6:16 PM [facility] Neutrophils % 60 36 - 65 % 11/23/2024 6:16 PM [facility] Lymphocytes % 30 24 - 43 % 11/23/2024 6:16 PM [facility] Monocytes % 7 3 - 12 % 11/23/2024 6:16 PM [facility] Eosinophils % 2 1 - 4 % 11/23/2024 6:16 PM EDT [facility] Basophils % 1 0 - 2 % 11/23/2024 6:16 PM EDT [facility] Immature Granulocytes % 0 0 % 11/23/2024 6:16 PM EDT [facility] Neutrophils Absolute 3.57 1.50 - 8.10 k/uL 11/23/2024 6:16 PM EDT [facility] Lymphocytes Absolute 1.82 1.10 - 3.70 k/uL 11/23/2024 6:16 PM EDT [facility] Monocytes Absolute 0.44 0.10 - 1.20 k/uL 11/23/2024 6:16 PM EDT [facility] Eosinophils Absolute 0.14 0.00 - 0.44 k/uL 11/23/2024 6:16 PM EDT [facility] Basophils Absolute 0.05 0.00 - 0.20 k/uL 11/23/2024 6:16 PM EDT [facility] Immature Granulocytes Absolute <0.03 0.00 - 0.30 k/uL 11/23/2024 6:16 PM EDT [facility] Blood BLOOD SPECIMEN / Unknown 11/23/2024 6:16 PM EDT 11/23/2024 6:30 PM EDT us Shelley Sanz DO HEMATOLOGY ORDERABLES Final Result [facility] [address] [phone] * (ABNORMAL) Microscopic Urinalysis (11/23/2024 5:40 PM EDT) WBC, UA 2 TO 5 0 - 5 /HPF 11/23/2024 5:40 PM EDT [facility] RBC, UA 0 TO 2 0 - 2 /HPF 11/23/2024 5:40 PM EDT [facility] Epithelial Cells, UA 0 TO 2 0 - 25 /HPF 11/23/2024 5:40 PM EDT [facility] Renal Epithelial, UA 0 TO 2 0 /HPF 11/23/2024 5:40 PM EDT [facility] Bacteria, UA TRACE(A) None 11/23/2024 5:40 PM EDT [facility] Mucus, UA TRACE(A) None 11/23/2024 5:40 PM EDT [facility] 11/23/2024 5:40 PM EDT 11/23/2024 6:08 PM EDT us Shelley Sanz DO URINE ORDERABLES Final Resu lt [facility] [address] [place] [id number] [phone] * (ABNORMAL) Urinalysis with Reflex to Culture (11/23/2024 5:40 PM EDT) Color, UA [place](A) Yellow 11/23/2024 5:40 PM EDT [facility] Turbidity UA Clear Clear 11/23/2024 5:40 PM EDT [facility] Glucose, Ur INTERPRET WITH CAUTION DUE TO INTENSE COLOR OF URINE.(A) NEGATIVE mg/dL 11/23/2024 5:40 PM EDT [facility] Bilirubin, Urine INTERPRET WITH CAUTION DUE TO INTENSE COLOR OF URINE.(A) NEGATIVE 11/23/2024 5:40 PM EDT [facility] Ketones, Urine INTERPRET WITH CAUTION DUE TO INTENSE COLOR OF URINE.(A) NEGATIVE mg/dL 11/23/2024 5:40 PM EDT [facility] Specific [place], UA 1.025(H) 1.010 - 1.020 11/23/2024 5:40 PM EDT [facility] Urine Hgb INTERPRET WITH CAUTION DUE TO INTENSE COLOR OF URINE.(A) NEGATIVE 11/23/2024 5:40 PM EDT [facility] pH, Urine INTERPRET WITH CAUTION DUE TO INTENSE COLOR OF URINE. 5.0 - 9.0 11/23/2024 5:40 PM EDT [facility] Protein, UA INTERPRET WITH CAUTION DUE TO INTENSE COLOR OF URINE.(A) NEGATIVE mg/dL 11/23/2024 5:40 PM EDT [facility] Urobilinogen, Urine INTERPRET WITH CAUTION DUE TO INTENSE COLOR OF URINE. 0.0 - 1.0 EU/dL 11/23/2024 5:40 PM EDT [facility] Nitrite, Urine INTERPRET WITH CAUTION DUE TO INTENSE COLOR OF URINE.(A) NEGATIVE 11/23/2024 5:40 PM EDT [facility] Leukocyte Esterase, Urine INTERPRET WITH CAUTION DUE TO INTENSE COLOR OF URINE.(A) NEGATIVE 11/23/2024 5:40 PM EDT [facility] Urine 11/23/2024 5:40 PM EDT 11/23/2024 6:08 PM EDT us Shelley Sanz DO URINE ORDERABLES Final Resu lt [facility] [address] [phone] documented in this encounter Visit Diagnoses Diagnosis Acute urinary retention- Primary Other specified retention of urine Acute UTI Urinary tract infection, site not specified documented in this encounter Administered Medications Inactive Administered Medications - up to 3 most recent administrations Medication Order MAR Action Action Date Dose Rate Site cefTRIAXone (ROCEPHIN) 1,000 mg in sterile water 10 mL IV syringe 1,000 mg, IntraVENous, ONCE, On [place] 11/23/24 at 1945, For 1 dose, Administer as slow IV Push over 5 mins Reconstitute 1 g vials with 9.6 mL of designated diluent to produce a 100 mg/mL solution. Given 11/23/2024 7:41 PM EDT 1,000 mg diphenhydrAMINE (BENADRYL) injection 25 mg 25 mg, IntraVENous, ONCE, 1 dose, On [place] 11/23/24 at 1800, IV Push at rate not to exceed 25 mg/min. Given 11/23/2024 6:14 PM EDT 25 mg fentaNYL (SUBLIMAZE) injection 50 mcg 50 mcg, IntraVENous, ONCE, 1 dose, On [place] 11/23/24 at 1945, If oral and IV narcotics ordered, use oral first and only use IV if oral is ineffective or cannot take oral. Do Not give oral and IV within 1 hour of each other unless specifically ordered. Given 11/23/2024 7:41 PM EDT 50 mcg prochlorperazine (COMPAZINE) injection 10 mg 10 mg, IntraVENous, ONCE, 1 dose, On [place] 11/23/24 at 1800, If administering IV push, administer at a maximum rate of 5 mg/minute. Patients should remain lying down following administration and be reassessed for relief of nausea and presence of hypotension. Patients should be assisted the first time they get up after administration. Given 11/23/2024 6:14 PM EDT 10 mg documented in this encounter Active and Recently Administered Medications Times are shown in EDT. Scheduled Medication Order 11/21/2024 11/22/2024 11/23/2024 cefTRIAXone (ROCEPHIN) 1,000 mg in sterile water 10 mL IV syringe (COMPLETED) 1,000 mg, IntraVENous, ONCE, On [place] 11/23/24 at 1945, For 1 dose, Administer as slow IV Push over 5 mins Reconstitute 1 g vials with 9.6 mL of designated diluent to produce a 100 mg/mL solution. 1940 (Given - Provid er: Oksana Trevizo RN) diphenhydrAMINE (BENADRYL) injection 25 mg (COMPLETED) 25 mg, IntraVENous, ONCE, 1 dose, On [place] 11/23/24 at 1800, IV Push at rate not to exceed 25 mg/min. 1813 (Given - Provid er: Oksana Trevizo RN) fentaNYL (SUBLIMAZE) injection 50 mcg (COMPLETED) 50 mcg, IntraVENous, ONCE, 1 dose, On [place] 11/23/24 at 1945, If oral and IV narcotics ordered, use oral first and only use IV if oral is ineffective or cannot take oral. Do Not give oral and IV within 1 hour of each other unless specifically ordered. 1940 (Given - Provid er: Oksana Trevizo RN) prochlorperazine (COMPAZINE) injection 10 mg (COMPLETED) 10 mg, IntraVENous, ONCE, 1 dose, On [place] 11/23/24 at 1800, If administering IV push, administer at a maximum rate of 5 mg/minute. Patients should remain lying down following administration and be reassessed for relief of nausea and presence of hypotension. Patients should be assisted the first time they get up after administration. 1813 (Given - Provid er: Oksana Trevizo RN) documented in this encounter Care Teams Cooler Operator Relationship Specialty Start Date End Date Thomas Alas MD [address] [place] [address] PCP - General Family Medicine 11/08/24 documented as of this encounter
--- OUTSIDE RECORDS SUMMARY | 2024-11-26 19:34 | XMS_ITS | Encounter Summary ---
Author Organization [facility] Address [address] [place] [address] Care Team Providers Care Occ Therapy Asst Name Role Phone Thomas Alas MD Primary Care Provider [phone] Reason for Referral * (Emergency) - Pending Review Specialty Diagnoses / Procedures Referred By Contac t Referred To Contact Procedures ECG 12 lead Israel Jeong MD [address] [place] [address] Phone: tel: fax: Referral ID Status Reason Start Date Expiration Date V isits Requested Visits Authorized [id number] Pending Review 11/26/2024 11/26/2025 1 1 Reason for Visit * Reason Comments Difficulty Urinating Dizziness Encounter Details Date Type Department Care Team (Late st Contact Info) Description 11/26/2024 7:34 PM EDT - 11/26/2024 9:45 PM EDT Emergency [facility] Emergency [address] [place] [address] Israel Jeong MD [address] [place] [address] Acute UTI (Primary Dx) Discharge Disposition: Home or Self Care () Social History Tobacco Use Types Packs/Day Years Used Date Smoking Tobacco: Never Smokeless Tobacco: Never Alcohol Use Standard Drinks/Week Comments Not Currently 0 (1 standard drink = 0.6 oz pur e alcohol) [facility] Utilities Answer Date [...] any time in the past 12 m [facility], were you homeless or living in a longterm (including now)? No 11/15/2024 Hunger Vital Sign Answer Date Recorded Within the past 12 months, y ou worried that your food would run out before you got the money to buy more. Never true 11/16/19 25 Ran Out of Food in the Last Year Not on file 11/15/2024 Comments No Sex and Gender Information Value Date Recorded Sex Assigned at Female 08/17/2024 3:45 PM EDT Legal Sex Female 12:07 AM EDT Gender Identity Female 08/17/2024 3:45 PM EDT Sexual Orientation Heterosexual or Straight 04/2024 3:45 PM EDT documented as of this encounter Last Filed Vital Signs Vital Sign Reading Time Taken Comments Blood Pressure 104/60 11/26/2024 9:25 PM EDT Pulse 73 11/26/2024 9:25 PM EDT Temperature 36.6 C (97.9 F) 11/26/2024 7:34 PM EDT Respiratory Rate 18 11/26/2024 9:25 PM EDT Oxygen Saturation 98% 11/26/2024 9:25 PM EDT Inhaled Oxygen Concentration - - Weight 81.6 kg (180 lb) 11/26/2024 7:34 PM EDT Height 167.6 cm (5' 6 ) 11/26/2024 7:34 PM EDT Body Mass Index 29.05 11/26/2024 7:34 PM EDT documented in this encounter Functional Status * Question Answer Date of Assessment Author BP 104/60 11/26/2024 9:25 PM EDT Andie Marino RN Pulse 73 11/26/2024 9:25 PM EDT Andie Marino RN * Qureshi Fall Risk Question Answer Date of Assessment Author History of Falling, Immediat e or Within 3 Months 0 11/26/2024 7:34 PM EDT Roseline Matos R N Secondary Diagnosis 0 11/26/2024 7:34 PM ED T Roseline Matos RN Ambulatory Aid 0 11/26/2024 7:34 PM EDT Roseline Paiz RN Intravenous Therapy/Heparin Lock 0 11/27/19 25 7:34 PM EDT Roseline Matos RN Gait/Transferring 0 11/26/2024 7:34 PM EDT Roseline Matos RN Mental Status 0 11/26/2024 7:34 PM EDT Roseline Hurst RN Qureshi Fall Risk Score 0 11/26/2024 7:34 PM EDT Roseline Matos RN * Cyrus Scale Question Answer Date of Assessment Author Cyrus No Risk Interventions Continue to assess patient according to level of care 11/26/2024 8:30 PM EDT Andie Fletcher RN Sensory Perceptions 4 11/26/2024 8:30 PM ED T Andie Fletcher RN Moisture 4 11/26/2024 8:30 PM EDT Andie Marino RN Activity 4 11/26/2024 8:30 PM EDT Andie Marino RN Mobility 3 11/26/2024 8:30 PM EDT Andie Marino RN Nutrition 2 11/26/2024 8:30 PM EDT Andie Marino RN Friction and Shear 3 11/26/2024 8:30 PM EDT Andie Fletcher RN Cyrus Scale Score 20 11/26/2024 8:30 PM EDT Andie Fletcher RN * Patient's Stated Pain Goal Answer Date of Assessment Author No pain 11/26/2024 9:33 PM EDT Mercedes Fletcher RN * Conway Fall Risk Interventions Question Answer Date of Assessment Author Conway Fall Risk Interventions Complete 025 7:34 PM EDT Roseline Matos RN * Pain Assessment Timer Question Answer Date of Assessment Author Restart Pain Assessment Timer Yes 11/26/2024 9:33 PM EDT Andie Fletcher RN * In the past 12 months, have you used drugs other than those required for medical reasons? Answer Date of Assessment Author 0 11/26/2024 7:35 PM EDT Harry Matos RN * Sepsis Model Scores Question Answer Date of Assessment Author Early Detection of Sepsis Score 1.46 9:31 PM EDT Delano Guzman Early Detection of Sepsis Score 2 9:31 PM EDT Delano Guzman * Pain Assessment Question Answer Date of Assessment Author Pain Location Abdomen 11/26/2024 8:[address], RN Pain Orientation Lower 11/26/2024 8:30 PM EDT Andie Olmos RN Pain Interventions Repositioned 11/26/2024 8:30 PM EDT Andie Fletcher RN Pain Descriptors Pressure;Aching 11/26/2024 8:30 PM ED T Andie Fletcher RN Pain Onset Ongoing 11/26/2024 8:30 PM EDT Andie Marino RN Pain Type Acute pain 11/26/2024 8:30 PM EDT Andie Marino RN Clinical Progression Not changed 11/26/2024 8:30 PM E Andie Smart RN Pain Assessment 0-10 11/26/2024 8:30 PM EDT Gi Andie mejia RN * Pain Score Answer Date of Assessment Author 8 11/26/2024 9:33 PM EDT Mercedes Fletcher RN * Audit Alcohol Screening Question Answer Date of Assessment Author How often do you have a drin k containing alcohol? 0 11/26/2024 7:35 PM EDT Roseline Matos R N How many standard drinks con taining alcohol do you have on a typical day? No 11/26/2024 7:35 PM EDT Roseline Matos R N How often do you have six or more drinks on one occasion? 0 11/26/2024 7:35 PM EDT Ashley Matos RN Audit-C Score 0 11/26/2024 7:35 PM EDT Roseline Hurst RN * Head, Ears, Eyes, Nose, and Throat (HEENT) Question Answer Date of Assessment Author Head, Ears, Eyes, Nose, and Throat (WDL) WDL 11/26/2024 8:30 PM EDT Andie Fletcher RN * Vital Signs Question Answer Date of Assessment Author BP 104/60 11/26/2024 9:25 PM EDT Andie Marino RN Temp 97.9 11/26/2024 7:34 PM EDT Roseline Matos RN Temp src Oral 11/26/2024 7:34 PM EDT Roseline Matos RN Pulse 73 11/26/2024 9:25 PM EDT Andie Marino RN Resp 18 11/26/2024 9:25 PM EDT Andie Marino RN SpO2 98 11/26/2024 9:25 PM EDT Andie Marino RN MAP (mmHg) 73 11/26/2024 9:25 PM EDT Andie Marino RN Pulse rate from Plethysmogra m (bpm) 72 11/26/2024 9:25 PM EDT Andie Fletcher RN * Gastrointestinal Question Answer Date of Assessment Author Abdominal Tenderness Soft 11/26/2024 8:30 PM E DT Andie Fletcher RN Bowel Sounds (All Quadrants) Active 11/26/2024 8 :30 PM EDT Andie Fletcher RN Gastrointestinal (WDL) X 11/26/2024 8:30 PM EDT Andie Fletcher RN Abdomen Inspection Soft 11/26/2024 8:30 PM EDT Andie Fletcher RN Gastrointestinal Symptoms Nausea;Cramping 11/26/2024 8 :30 PM EDT Andie Fletcher RN Bowel Sounds All quadrants 11/26/2024 8:[address], RN * Peripheral Vascular Question Answer Date of Assessment Author Peripheral Vascular ([facility]) [facility] 11/26/2024 8:30 PM EDT Andie Fletcher RN * Musculoskeletal Question Answer Date of Assessment Author Musculoskeletal ([facility]) [facility] 11/26/2024 8:30 PM EDT Andie Fletcher RN * Psychosocial Question Answer Date of Assessment Author Psychosocial ([facility]) [facility] 11/26/2024 8:30 PM EDT Andie Fletcher RN * Qureshi Fall Risk Question Answer Date of Assessment Author History of Falling, Immediat e or Within 3 Months 0 11/26/2024 7:34 PM EDT Roseline Matos R N Secondary Diagnosis 0 11/26/2024 7:34 PM ED T Roseline Matos RN Ambulatory Aid 0 11/26/2024 7:34 PM EDT Roseline Paiz RN Intravenous Therapy/Heparin Lock 0 11/27/19 7:34 PM EDT Roseline Matos RN Gait/Transferring 0 11/26/2024 7:34 PM EDT Roseline Matos RN Mental Status 0 11/26/2024 7:34 PM EDT Roseline Hurst RN Qureshi Fall Risk Score 0 11/26/2024 7:34 PM EDT Roseline Matos RN * Cyrus Scale Question Answer Date of Assessment Author Cyrus No Risk Interventions Continue to assess patient according to level of care 11/26/2024 8:30 PM EDT Andie Fletcher RN Sensory Perceptions 4 11/26/2024 8:30 PM ED T Andie Fletcher RN Moisture 4 11/26/2024 8:30 PM EDT Andie Marino RN Activity 4 11/26/2024 8:30 PM EDT Andie Marino RN Mobility 3 11/26/2024 8:30 PM EDT Andie Marino RN Nutrition 2 11/26/2024 8:30 PM EDT Andie Marino RN Friction and Shear 3 11/26/2024 8:30 PM EDT Andie Fletcher RN Cyrus Scale Score 20 11/26/2024 8:30 PM EDT Andie Fletcher RN * Cardiac Question Answer Date of Assessment Author Cardiac (WDL) WD 11/26/2024 8:[address], RN * Respiratory Question Answer Date of Assessment Author Respiratory (WD) WD 11/26/2024 8:30 PM EDT Andie Fletcher RN * Charting Type Question Answer Date of Assessment Author Charting Type Shift assessment 11/26/2024 8:30 PM EDT Andie Fletcher RN * Patient's Stated Pain Goal Answer Date of Assessment Author No pain 11/26/2024 9:33 PM EDT Mercedes Fletcher RN * Genitourinary Question Answer Date of Assessment Author Genitourinary ([facility]) X 11/26/2024 8:30 PM ED T Andie Fletcher RN * Neurological Question Answer Date of Assessment Author Neuro ([facility]) WD 11/26/2024 8:[address], RN * Conway Fall Risk Interventions Question Answer Date of Assessment Author Conway Fall Risk Interventions Complete 025 7:34 PM EDT Roseline Matos RN * Cobalt Coma Scale Question Answer Date of Assessment Author Best Eye Response Spontaneous 11/26/2024 8:30 PM EDT Andie Fletcher RN Best Verbal Response Oriented 11/26/2024 8:30 PM E DT Andie Fletcher RN Best Motor Response Follows commands 11/26/2024 8:30 P M EDT Andie Fletcher RN Kris Coma Scale Score 15 11/26/2024 8:30 PM EDT Andie Fletcher RN * Pain Assessment Question Answer Date of Assessment Author Pain Location Abdomen 11/26/2024 8:[address], RN Pain Orientation Lower 11/26/2024 8:30 PM EDT Andie Olmos RN Pain Interventions Repositioned 11/26/2024 8:30 PM EDT Andie Fletcher RN Pain Descriptors Pressure;Aching 11/26/2024 8:30 PM ED T Andie Fletcher RN Pain Onset Ongoing 11/26/2024 8:30 PM EDT Andie Marino RN Pain Type Acute pain 11/26/2024 8:30 PM EDT Andie Marino RN Clinical Progression Not changed 11/26/2024 8:30 PM E Andie Smart RN Pain Assessment 0-10 11/26/2024 8:30 PM EDT Gi Andie mejia RN * Integumentary Question Answer Date of Assessment Author Skin Color Appropriate for race 11/26/2024 8:30 PM E Andie Smart RN Skin Condition/Temp Warm;Dry 11/26/2024 8:30 PM ED Andie Tinoco RN Integumentary (WDL) X 11/26/2024 8:30 PM ED T Andie Fletcher RN * Pain Score Answer Date of Assessment Author 8 11/26/2024 9:33 PM EDT Mercedes Fletcher RN * [place] Suicide Severity Rating Scale Question Answer Date of Assessment Author 1. Have you wished you were or wished you could go to sleep and not wake up? No 11/26/2024 7:34 PM EDT Roseline Matos R N 2. Have you actually had any thoughts of killing yourself? No 11/26/2024 7:34 PM EDT Roseline Matos RN 6. Have you ever done anythi ng, started to do anything, or prepared to do anything to end your life? No 11/26/2024 7:34 PM EDT Roseline Hurst RN * Audit Alcohol Screening Question Answer Date of Assessment Author How often do you have a drin k containing alcohol? 0 11/26/2024 7:35 PM EDT Roseline Matos R N How many standard drinks con taining alcohol do you have on a typical day? No 11/26/2024 7:35 PM EDT Roseline Matos R N How often do you have six or more drinks on one occasion? 0 11/26/2024 7:35 PM EDT Ashley Matos RN Audit-C Score 0 11/26/2024 7:35 PM EDT Roseline Hurst RN * Risk of Suicide Answer Date of Assessment Author No Risk 11/26/2024 7:34 PM EDT Harry Matos RN documented as of this encounter Mental Status * Kris Coma Scale Question Answer Entry Date Author Best Eye Response Spontaneous 11/26/2024 8:3 0 PM EDT Andie Fletcher RN Best Verbal Response Oriented 11/26/2024 8:30 PM EDT Andie Fletcher RN Best Motor Response Follows commands 11/26/2024 8:30 PM EDT Andie Fletcher RN Kris Coma Scale Score 15 025 8:30 PM EDT Andie Fletcher RN documented in this encounter Discharge Instructions * Attachments The following attachments cannot be sent through Care Everywhere. * Urinary Tract Infection Adult ([place]) documented in this encounter Medications at Time [...] before November 14, 2024. 8 tablet 11/14/2024 escitalopram (Lexapro) 20 mg tablet Take 20 mg by mouth in the morning. fentaNYL (Duragesic) 12 mcg/hr Place 1 patch on the skin every 3rd (third) day. Give with 25 mcg patch fentaNYL (Duragesic) 25 mcg/hr Place 1 patch on the skin every 3rd (third) day. HYDROcodone-acet aminophen (Vaughan) 5-325 mg tablet Take 2 tablets by [...] in the morning. metoclopramide (Reglan) 10 mg tabletIndication s:Gastroparesis Take [...] 08, 2024. 30 tablet 3 11/08/2024 5 naloxone (Narcan) 0.4 mg/mL injectionIndicat ions:Chronic narcotic [...] for 287 doses. 90 tablet 3 11/07/2024 cefpodoxime (Vantin) 200 mg tablet Take 1 tablet (200 mg) by mouth two times daily for 7 days. 14 tablet 11/26/2024 metFORMIN, OSM, (Fortamet) 500 mg 24 hr tablet Take 500 mg by mouth with breakfast and with evening meal. Do not crush, chew, or split. methocarbamol (Robaxin) 500 mg tablet Take 750 mg by mouth four times daily. mirtazapine (Remeron) 30 mg tablet Take 45 mg by mouth at bedtime. documented as of this encounter ED Notes * Israel Jeong MD - 11/26/2024 7:44 PM EDT History of Present Illness Chief Complaint Patient presents with Difficulty Urinating Dizziness Initial evaluation conducted at 7:[address] Jean-Paul Potter Sandra Garcia is a 34 year old female patient with a chief complaint of difficulty urinating and dizziness. Pt reports that she had a catheter placed 3 days ago. She states that she recently had intermittent chest pain but none currently. She reports some discomfort in her bladder but denies any upper abdominal pain. She denies any fever, trauma, or injury. History provided by: Patient Cobalt Coma Scale Score: 15 History Medical History[1] Surgical History[2] Family History[3] Social History[4] Review of Systems Review of Systems Genitourinary: Positive for dysuria. All other systems reviewed and are negative. Physical Exam ED Triage Vitals [11/26/241933] Temp Heart Rate Resp BP 36.6 ??C [...] Course & MDM Diagnoses as of 11/26/24 2312 Acute UTI Medical Decision Making The patient [...] Urine Normal Bilirubin, Urine Small (*) Specific [place], Urine 1.018 Ketones, Urine Negative Blood, Urine [...] Procedure Abnormality Status --------- ------ CBC auto differential[[id number]] Abnormal Final result Please view results for [...] HYDROcodone-acetaminophen 5-325 mg tablet Commonly known as: Vaughan hydrocortisone 10 mg tablet Commonly known as: [...] Your Medications These medications were sent to [facility]/pharmacy #[id number] [place] [address] cefpodoxime 200 mg tablet Diagnosis: 1. Acute [...] signing this emergency patient record, the Emergency Physician/CAMERA OPERATOR/PA-C attests that all entries made into the electronic medical record by the scribe prior to the Physician/CAMERA OPERATOR/PA-C signature reflect an accurate accounting of the evaluation and care rendered by that Emergency Physician/CAMERA OPERATOR/PA-C. The Emergency Physician/CAMERA OPERATOR/PA-C assumes full responsibility for those entries. The Emergency Physician/CAMERA OPERATOR/PA-C also attests that any patient testing [...] Drug use: Never Israel Jeong MD 11/26/24 4642 * Roseline Matos RN - 11/26/2024 7:32 PM EDT Pt arrives for urinary problems. Pt claims she has a catheter and is not able to urinate. Pt also reports dizziness that has been going on for a few days. documented in this encounter Plan of Treatment Upcoming Encounters Date Type Department Care Team (Late st Contact Info) Description 12/06/2024 11:20 AM EDT Office Visit [facility] Heart [facility] [address] [place] [address] Wali Collins MD [address] [place] [address] 12/14/2024 9:00 AM EDT Appointment [facility] Endoscopy [address] [place] [address] Braxton Bellamy MD [address] [facility] [address] [facility] [place] [address] 12/14/2024 10:30 AM EDT Appointment [facility] X[facility]Ray [facility] [address] [facility] [place] [address] documented as of this encounter Procedures Procedure Name Priority Date/Time Associated Diagnosis Comments URINALYSIS MICROSCOPIC WITH REFLEX CULTURE STAT 11/26/2024 8:27 PM EDT URINALYSIS WITH REFLEX CULTURE STAT 11/26/2024 8:27 PM EDT SERUM QUALITATIVE STAT 11/26/2024 8:27 PM EDT XR CHEST 1 VIEW STAT 11/26/2024 8:17 PM EDT ECG 12-LEAD STAT 11/26/2024 8:13 PM EDT HIGH SENSITIVITY TROPONIN I STAT 11/26/2024 8:05 PM EDT CBC WITH AUTO DIFFERENTIAL STAT 11/26/2024 8:05 PM EDT CBC AND DIFFERENTIAL STAT 11/26/2024 8:05 PM EDT LIPASE STAT 11/26/2024 8:05 PM EDT COMPREHENSIVE METABOLIC PANEL STAT 11/26/2024 8:05 PM EDT documented in this encounter Results * Urinalysis microscopic with reflex culture (11/26/2024 8:27 PM EDT) RBC, Urine 0-2 None Seen, 0-2 /HPF 11/26/2024 8:52 PM EDT [facility] ([facility]) WBC, Urine 0-2 None Seen, 0-2 /HPF 11/26/2024 8:52 PM EDT [facility] ([facility]) Squamous Epithelial, Urine None Seen None Seen, Occasional , Few /LPF 11/26/2024 8:52 PM EDT [facility] ([facility]) Mucus, Urine Occasional None Seen, Occasional , Few /LPF 11/26/2024 8:52 PM EDT [facility] ([facility]) Urine Urine specimen obtained by clean catch procedure / Unknown Non-blood Collection / Unknown 11/26/2024 8:27 PM EDT 11/26/2024 8:33 PM EDT us Israel Jeong MD LAB URINE ORDERABLES Final Resul t [facility] ([facility]) [address] [place] [address] * Serum Qualitative (11/26/2024 8:27 PM EDT) hCG, Serum Negative 11/26/2024 8:51 PM EDT [facility] ([facility]) Blood Venous blood specimen / Unknown Existing Catheter / Unknown 11/26/2024 8:27 PM EDT 11/26/2024 8:33 PM EDT Israel Jeong MD LAB BLOOD ORDERABLES Final Resul t Performing Organization Address City/[facility]/ZIP Co de Phone Number [facility] ([facility]) [address] [place] [address] * (ABNORMAL) Urinalysis with reflex culture (11/26/2024 8:27 PM EDT) Color, Urine Dark-Yellow( A) Colorless, Yellow, Light-Yellow 11/26/2024 8:52 PM EDT [facility] ([facility]) Clarity, Urine Clear Clear 11/26/2024 8:52 PM EDT [facility] ([facility]) pH, Urine 7.0 5.0 - 8.0 pH 11/26/2024 8:52 PM EDT [facility] ([facility]) Leukocytes, Urine Trace(A) Negative 11/26/2024 8:52 PM EDT [facility] ([facility]) Nitrite, Urine Positive(A) Negative 11/26/2024 8:52 PM EDT [facility] ([facility]) Protein, Urine Negative Negative mg/dL 11/26/2024 8:52 PM EDT [facility] ([facility]) Glucose, Urine Normal Normal mg/dL 11/26/2024 8:52 PM EDT [facility] ([facility]) Bilirubin, Urine Small(A) Negative 11/26/2024 8:52 PM EDT [facility] ([facility]) Specific [place], Urine 1.018 1.010 - 1.030 11/26/2024 8:52 PM EDT [facility] ([facility]) Ketones, Urine Negative Negative mg/dL 11/26/2024 8:52 PM EDT [facility] ([facility]) Blood, Urine Negative Negative 11/26/2024 8:52 PM EDT [facility] ([facility]) Urobilinogen, Urine 4.0(A) Normal mg/dL 11/26/2024 8:52 PM EDT [facility] ([facility]) Urine Urine specimen obtained by clean catch procedure / Unknown Non-blood Collection / Unknown 11/26/2024 8:27 PM EDT 11/26/2024 8:33 PM EDT us Israel Jeong MD LAB URINE ORDERABLES Final Resul t [facility] ([facility]) [address] [place] [address] * XR chest 1 view (11/26/2024 8:17 PM EDT) Anatomical Region Laterality Modality Chest Computed Radiogr aphy 11/26/2024 8:21 PM EDT Impressions 11/26/2024 8:37 PM [...] this report. Electronically signed: AILEEN GRACE MD. Israel Jeong MD IMG XR PROCEDURES Final Result * ECG 12 lead (11/26/2024 8:13 PM EDT) Ventricular Rate 70 BPM GE MUSE Atrial Rate 70 BPM GE MUSE VA Interval 150 ms GE MUSE QRS DURATION 88 ms GE MUSE QT Interval 436 ms GE MUSE QTC CALCULATION(BAZE TT) 470 ms GE MUSE P [place] 63 degrees GE MUSE R-[place] 43 degrees GE MUSE T Wave [place] 43 degrees GE MUSE 11/26/2024 7:52 PM EDT 11/26/2024 8:15 PM EDT Impressions GE MUSE - [...] Tino Gilmore (69) on 11/26/2024 8:15:28 PM Israel Jeong MD ECG ORDERABLES Final Result GE MUSE * (ABNORMAL) CBC auto differential (11/26/2024 8:05 PM EDT) Auto WBC 5.23 4.00 - 10.60 10*3/uL 11/26/2024 8:18 PM EDT [facility] ([facility]) RBC 3.37(L) 3.80 - 5.00 10*6/uL 11/26/2024 8:18 PM EDT [facility] ([facility]) Hemoglobin 9.9(L) 12.0 - 15.0 g/dL 11/26/2024 8:18 PM EDT [facility] ([facility]) Hematocrit 29.9(L) 36.0 - 45.0 % 11/26/2024 8:18 PM EDT [facility] ([facility]) MCV 88.7 82.0 - 98.0 fL 11/26/2024 8:18 PM EDT [facility] ([facility]) MCH 29.4 27.0 - 33.0 pg 11/26/2024 8:18 PM EDT [facility] ([facility]) MCHC 33.1 32.0 - 35.0 g/dL 11/26/2024 8:18 PM EDT [facility] ([facility]) RDW 14.0 11.5 - 15.0 % 11/26/2024 8:18 PM EDT [facility] ([facility]) Neutrophils % 44.5 40.0 - 72.0 % 11/26/2024 8:18 PM EDT [facility] ([facility]) Lymphocytes % 40.5 20.0 - 45.0 % 11/26/2024 8:18 PM EDT [facility] ([facility]) Monocytes % 10.9 5.0 - 12.0 % 11/26/2024 8:18 PM EDT [facility] ([facility]) Eosinophils % 3.1 0.0 - 6.0 % 11/26/2024 8:18 PM EDT [facility] ([facility]) Basophils % 0.8 0.0 - 1.0 % 11/26/2024 8:18 PM EDT [facility] ([facility]) Neutrophils Absolute 2.33 1.60 - 7.60 10*3/uL 11/26/2024 8:18 PM EDT [facility] ([facility]) Lymphocytes Absolute 2.12 1.20 - 4.00 10*3/uL 11/26/2024 8:18 PM EDT [facility] ([facility]) Monocytes Absolute 0.57 0.10 - 1.00 10*3/uL 11/26/2024 8:18 PM EDT [facility] ([facility]) Eosinophils Absolute 0.16 0.00 - 0.50 10*3/uL 11/26/2024 8:18 PM EDT [facility] ([facility]) Basophils Absolute 0.04 0.00 - 0.20 10*3/uL 11/26/2024 8:18 PM EDT [facility] ([facility]) Platelets 316 150 - 400 10*3/uL 11/26/2024 8:18 PM EDT [facility] ([facility]) nRBC % 0.0 0 % 11/26/2024 8:18 PM EDT [facility] ([facility]) Immature Granulocytes % 0.2 0.0 - 1.0 % 11/26/2024 8:18 PM EDT [facility] ([facility]) Immature Granulocytes Absolute 0.01 0.00 - 0.20 10*3/uL 11/26/2024 8:18 PM EDT [facility] [facility] ([facility]) Blood Venous blood specimen / Unknown Existing Catheter / Unknown 11/26/2024 8:05 PM EDT 11/26/2024 8:13 PM EDT us Israel Jeong MD LAB BLOOD ORDERABLES Final Resul t [facility]) [address] [place] [address] * HS Troponin I (11/26/2024 8:05 PM EDT) High Sensitivity Troponin I <2 <15 ng/L 11/26/2024 8:42 PM EDT [facility] ([facility]) Blood Venous blood specimen / Unknown Existing Catheter / Unknown 11/26/2024 8:05 PM EDT 11/26/2024 8:13 PM EDT us Israel Jeong MD LAB BLOOD ORDERABLES Final Resul t [facility]) [address], [place] [id number] * Lipase (11/26/2024 8:05 PM EDT) Lipase 55 11 - 82 U/L 11/26/2024 8:36 PM EDT [facility] ([facility]) Blood Venous blood specimen / Unknown Existing Catheter / Unknown 11/26/2024 8:05 PM EDT 11/26/2024 8:13 PM EDT us Israel Jeong MD LAB BLOOD ORDERABLES Final Resul t [facility] ([facility]) [address] [place] [address] * (ABNORMAL) Comprehensive metabolic panel (11/26/2024 8:05 PM EDT) Sodium 139 136 - 145 mmol/L 11/26/2024 8:36 PM EDT [facility] ([facility]) Potassium 3.7 3.5 - 5.1 mmol/L 11/26/2024 8:36 PM EDT [facility] ([facility]) Chloride 112(H) 98 - 107 mmol/L 11/26/2024 8:36 PM EDT [facility] ([facility]) CO2 22 21 - 31 mmol/L 11/26/2024 8:36 PM EDT [facility] ([facility]) Anion Gap 9 7 - 20 mmol/L 11/26/2024 8:36 PM EDT [facility] ([facility]) BUN 9 7 - 25 mg/dL 11/26/2024 8:36 PM EDT [facility] ([facility]) Creatinine 0.59(L) 0.60 - 1.20 mg/dL 11/26/2024 8:36 PM EDT [facility] ([facility]) BUN/Creatinine Ratio 15.3 11/15 8:36 PM EDT [facility] ([facility]) Glucose 72 70 - 100 mg/dL 11/26/2024 8:36 PM EDT [facility] ([facility]) Calcium 7.4(L) 8.6 - 10.3 mg/dL 11/26/2024 8:36 PM EDT [facility] ([facility]) AST 24 13 - 39 U/L 11/26/2024 8:36 PM EDT [facility] ([facility]) ALT (SGPT) 12 7 - 52 U/L 11/26/2024 8:36 PM EDT [facility] ([facility]) Alkaline Phosphatase 78 34 - 104 U/L 11/26/2024 8:36 PM EDT [facility] ([facility]) Total Protein 5.6(L) 6.0 - 8.3 g/dL 11/26/2024 8:36 PM EDT [facility] ([facility]) Albumin 3.6 3.5 - 5.7 g/dL 11/26/2024 8:36 PM EDT [facility] ([facility]) Total Bilirubin 0.2(L) 0.3 - 1.0 mg/dL 11/26/2024 8:36 PM EDT [facility] ([facility]) eGFR 120.5 >60.0 mL/min/1. 73m*2 11/26/2024 8:36 PM EDT [facility] ([facility]) Comment:[facility] estimated glomerular filtration rate (eGFR) will [...] specimen / Unknown Existing Catheter / Unknown 11/26/2024 8:05 PM EDT 11/26/2024 8:13 PM EDT us Israel Jeong MD LAB BLOOD ORDERABLES Final Resul t [facility] ([facility]) [address] [place] [address] documented in this encounter Visit Diagnoses Diagnosis Acute UTI- Primary Urinary tract infection, site not specified documented in this encounter Administered Medications Inactive Administered Medications - up to 3 most recent administrations Medication Order MAR Action Action Date Dose Rate Site cefpodoxime (Vantin) tablet 200 mg 200 mg, oral, Once, On 11/26/24 at 2114, For 1 dose, Suspected Indication (Select all that apply): Urinary Tract Infection, Type of Urinary Tract Infection: Uncomplicated Given 11/26/2024 9:33 PM EDT 200 mg diphenhydrAMINE (BENADryl) injection 25 mg 25 mg, intravenous, Once, On 11/26/24 at 2014, For 1 dose Given 11/26/2024 8:31 PM EDT 25 mg oxyCODONE-acetaminophen (Percocet) 5-325 mg per tablet 1 tablet 1 tablet, oral, Once, On 11/26/24 at 2114, For 1 dose Given 11/26/2024 9:33 PM EDT 1 tablet prochlorperazine (Compazine) injection 5 mg 5 mg, intravenous, Once, On 11/26/24 at 2014, For 1 dose, For IVP: give each 5mg or less over 1 minute. Given 11/26/2024 8:33 PM EDT 5 mg documented in this encounter Active and Recently Administered Medications Times are shown in EDT. Scheduled Medication Order 11/24/2024 11/25/2024 11/26/2024 cefpodoxime (Vantin) tablet 200 mg (COMPLETED) 200 mg, oral, Once, On 11/26/24 at 2114, For 1 dose, Suspected Indication (Select all that apply): Urinary Tract Infection, Type of Urinary Tract Infection: Uncomplicated 2132 (Given - Provid er: Andie Fletcher RN) diphenhydrAMINE (BENADryl) injection 25 mg (COMPLETED) 25 mg, intravenous, Once, On 11/26/24 at 2014, For 1 dose 2030 (Given - Provid er: Jennifer Wyman RN) oxyCODONE-acetaminophen (Percocet) 5-325 mg per tablet 1 tablet (COMPLETED) 1 tablet, oral, Once, On 11/26/24 at 2114, For 1 dose 2132 (Given - Provid er: Andie Fletcher RN) prochlorperazine (Compazine) injection 5 mg (COMPLETED) 5 mg, intravenous, Once, On 11/26/24 at 2015, For 1 dose, For IVP: give each 5mg or less over 1 minute. 2032 (Given - Provid er: Jennifer Wyman RN) documented in this encounter Care Teams Occ Therapy Asst Relationship Specialty Start Date End Date Thomas Alas MD [address] [facility] [place] [address] PCP - General Family Medicine 08/17/24 documented as of this encounter
--- OUTSIDE RECORDS SUMMARY | 2024-12-02 10:18 | XMS_ITS | Encounter Summary ---
Author Organization [facility] Address [address], [address] [place] [address] Care Team Providers Care Clinical Product Specialist Name Role Phone Thomas Alas MD Primary Care Provider [phone] Reason for Visit * Reason Comments Back Pain Hematuria Pt states long cath placed a week ago for difficulty urinating & notes back pain x3 days, hematuria x2 days, notes leaking around long cath, chills, and nausea. Pt denies V/D. Encounter Details Date Type Department Care Team (Late st Contact Info) Description 12/02/2024 10:18 AM EDT - 12/02/2024 12:37 PM EDT Emergency [facility] Emergency Department [address] [place], [place] [id number] Gross hematuria (Primary Dx); Painful bladder spasm; [...] you have a drink containing alcohol? Never 12/02/2024 Q2: How many drinks containi ng alcohol do you have on a typical day when you are drinking? Patient does not drink Q3: How often do you have si x or more drinks on one occasion? Never 12/02/2024 Interpersonal Safety Domain Source: IP Abuse Scr eening Answer Date Recorded Physical abuse Denies 12/02/2024 Verbal abuse Denies 12/02/2024 Emotional abuse Denies 12/02/2024 Financial abuse Denies 12/02/2024 Sexual abuse Denies 12/02/2024 Comments No Sex and Gender Information Value Date Recorded Sex Assigned at Not on file Legal Sex Female 2:41 PM EST Gender Identity Not on file Sexual Orientation Not on file documented as of this encounter Last Filed Vital Signs Vital Sign Reading Time Taken Comments Blood Pressure 128/85 12/02/2024 12:36 PM EDT Pulse 75 12/02/2024 12:36 PM EDT Temperature 36.8 C (98.2 F) 12/02/2024 10:14 AM EDT Respiratory Rate 16 12/02/2024 10:14 AM EDT Oxygen Saturation 100% 12/02/2024 12:36 PM EDT Inhaled Oxygen Concentration - - Weight 81.6 kg (180 lb) 12/02/2024 10:14 AM EDT Height 167.6 cm (5' 6 ) 12/02/2024 10:14 AM EDT Body Mass Index 29.05 12/02/2024 10:14 AM EDT documented in this encounter Functional [...] be sent through Care Everywhere. * Hematuria (Niuean) documented in this encounter Medications at Time of Discharge phenazopyridine (PYRIDIUM) 200 MG tablet Take 1 tablet by mouth 3 times daily as needed for Pain (bladder spasm/pain) 6 tablet 5 12/06/19 25 hydrocortisone (CORTEF) 10 MG tablet Take 1 [...] 1 capsule by mouth 2 times daily metoclopramide (REGLAN) 10 MG tablet Take 1 tablet by mouth 2 times daily as needed 4 12/03/19 25 documented as of this encounter Plan of Treatment Not on file documented as of this encounter Procedures Procedure Name Priority Date/Time Associated Diagnosis Comments URINALYSIS WITH REFLEX TO CULTURE STAT 12/02/2024 11:54 AM EDT MICROSCOPIC URINALYSIS Routine 5 11:[address] ABDOMEN PELVIS WO CONTRAST STAT 12/02/2024 11:30 AM EDT CBC WITH AUTO DIFFERENTIAL STAT 12/02/2024 11:12 AM EDT MAGNESIUM STAT 12/02/2024 11:12 AM EDT LACTIC ACID STAT 12/02/2024 11:12 AM EDT COMPREHENSIVE METABOLIC PANEL STAT 12/02/2024 11:12 AM EDT documented in this encounter Results * Microscopic Urinalysis (12/02/2024 11:54 AM EDT) WBC, UA 2 TO 5 0 - 5 /HPF 12/02/2024 11:[address] [facility] RBC, UA 20 TO 50 0 - 2 /HPF 12/02/2024 11:[address] [facility] Epithelial Cells, UA 0 TO 2 0 - 25 /HPF 12/02/2024 11:[address] [facility] 12/02/2024 11:5 4 AM EDT 12/02/2024 11:57 AM EDT Jose Angel Perez PA-C URINE ORDERABLES Final Result [facility] [address] [phone] * (ABNORMAL) Urinalysis with Reflex to Culture (12/02/2024 11:54 AM EDT) Color, UA Red(A) Yellow 12/02/2024 11:[address] [facility] Turbidity UA Clear Clear 12/02/2024 11:[address] [facility] Glucose, Ur NEGATIVE NEGATIVE mg/dL 12/02/2024 11:[address] [facility] Bilirubin, Urine NEGATIVE NEGATIVE 12/02/2024 11:[address] [facility] Ketones, Urine NEGATIVE NEGATIVE mg/dL 12/02/2024 11:[address] [facility] Specific [place], UA 1.010 1.010 - 1.020 12/02/2024 11:[address] [facility] Urine Hgb 3+(A) NEGATIVE 12/02/2024 11:54 AM [facility] pH, Urine 7.0 5.0 - 9.0 12/02/2024 11:54 AM [facility] Protein, UA TRACE(A) NEGATIVE mg/dL 12/02/2024 11:[address] [facility] Urobilinogen, Urine Normal 0.0 - 1.0 EU/dL 12/02/2024 11:[address] [facility] Nitrite, Urine NEGATIVE NEGATIVE 12/02/2024 11:[address] [facility] Leukocyte Esterase, Urine NEGATIVE NEGATIVE 12/02/2024 11:[address] [facility] URINE SPECIMEN / Unknown 12/02/2024 11:54 AM EDT 12/02/2024 11:57 AM EDT Jose Angel Perez PA-C URINE ORDERABLES Final Result [facility] [address] [phone] * CT ABDOMEN PELVIS WO CONTRAST Additional Contrast? None (12/02/2024 11:30 AM EDT) Anatomical Region Laterality Modality Abdomen, Pelvis, Hip Computed To mography 12/02/2024 12:1 5 PM EDT Impressions 12/02/2024 12:18 PM EDT [...] and pelvis was performed without the administration ofintravenous contrast. Multiplanar reformatted images are provided forreview. [...] kidneys or ureters. No hydronephrosis. No perinephric orperiureteral stranding. Long catheter is present. GI AND BOWEL: Status post gastric bypass. Clips near the cecum, correlate with surgicalhistory. There is no bowel obstruction. PERITONEUM AND RETROPERITONEUM: No ascites. No free air. VASCULATURE: Aorta is normal in caliber. LYMPH NODES: No lymphadenopathy. REPRODUCTIVE ORGANS: No acute abnormality. BONES AND SOFT TISSUES: No acute osseous abnormality. No focal soft tissue abnormality. IMPRESSION: 1. No acute findings in the abdomen or pelvis. Jose Angel Perez PA-C IMG CT ORDERABLES Final Result * Magnesium (12/02/2024 11:12 AM EDT) Magnesium 1.8 1.6 - 2.6 mg/dL 12/02/2024 11:[address] [facility] Blood BLOOD SPECIMEN / Unknown 12/02/2024 11:12 AM EDT 12/02/2024 11:14 AM EDT Jose Angel Perez PA-C CHEMISTRY ORDERABLES Final Res ult Performing Organization Address City/[facility]/ZIP Co de Phone Number [facility] [address] [phone] * Lactic Acid (12/02/2024 11:12 AM EDT) Lactic Acid 0.8 0.5 - 2.2 mmol/L 12/02/2024 11:[address] [facility] Blood BLOOD SPECIMEN / Unknown 12/02/2024 11:12 AM EDT 12/02/2024 11:14 AM EDT Jose Angel Perez PA-C CHEMISTRY ORDERABLES Final Res ult Performing Organization Address [facility]/ZIP Co de Phone Number [facility] [address] [place] [address] * (ABNORMAL) CBC with Auto Differential (12/02/2024 11:12 AM EDT) WBC 4.4 3.5 - 11.3 k/uL 12/02/2024 11:[address] [facility] RBC 3.47(L) 3.95 - 5.11 m/uL 12/02/2024 11:[address] [facility] Hemoglobin 10.1(L) 11.9 - 15.1 g/dL 12/02/2024 11:[address] [facility] Hematocrit 30.5(L) 36.3 - 47.1 % 12/02/2024 11:[address] [facility] MCV 87.9 82.6 - 102.9 fL 12/02/2024 11:[address] [facility] MCH 29.1 25.2 - 33.5 pg 12/02/2024 11:[address] [facility] MCHC 33.1 28.4 - 34.8 g/dL 12/02/2024 11:12 AM [facility] RDW 13.8 11.8 - 14.4 % 12/02/2024 11:12 AM [facility] Platelets 198 138 - 453 k/uL 12/02/2024 11:12 AM [facility] MPV 10.9 8.1 - 13.5 fL 12/02/2024 11:12 AM [facility] NRBC Automated 0.0 0.0 per 100 WBC 12/02/2024 11:12 AM [facility] Neutrophils % 71(H) 36 - 65 % 12/02/2024 11:12 AM [facility] Lymphocytes % 22(L) 24 - 43 % 12/02/2024 11:12 AM [facility] Monocytes % 5 3 - 12 % 12/02/2024 11:12 AM [facility] Eosinophils % 1 1 - 4 % 12/02/2024 11:12 AM [facility] Basophils % 1 0 - 2 % 12/02/2024 11:12 AM [facility] Immature Granulocytes % 0 0 % 12/02/2024 11:12 AM [facility] Neutrophils Absolute 3.13 1.50 - 8.10 k/uL 12/02/2024 11:12 AM [facility] Lymphocytes Absolute 0.95(L) 1.10 - 3.70 k/uL 12/02/2024 11:12 AM [facility] Monocytes Absolute 0.23 0.10 - 1.20 k/uL 12/02/2024 11:12 AM [facility] Eosinophils Absolute 0.05 0.00 - 0.44 k/uL 12/02/2024 11:12 AM [facility] Basophils Absolute 0.03 0.00 - 0.20 k/uL 12/02/2024 11:12 AM [facility] Immature Granulocytes Absolute <0.03 0.00 - 0.30 k/uL 12/02/2024 11:[address] [facility] Blood BLOOD SPECIMEN / Unknown 12/02/2024 11:12 AM EDT 12/02/2024 11:14 AM EDT Jose Angel Perez PA-C HEMATOLOGY ORDERABLES Final Re sult [facility] [address] [phone] * (ABNORMAL) CMP (12/02/2024 11:12 AM EDT) Sodium 139 136 - 145 mmol/L 12/02/2024 11:12 AM [facility] Potassium 3.9 3.7 - 5.3 mmol/L 12/02/2024 11:12 AM [facility] Chloride 107 98 - 107 mmol/L 12/02/2024 11:12 AM [facility] CO2 23 20 - 31 mmol/L 12/02/2024 11:12 AM [facility] Anion Gap 9 9 - 16 mmol/L 12/02/2024 11:12 AM [facility] Glucose 86 74 - 99 mg/dL 12/02/2024 11:12 AM [facility] BUN 7 6 - 20 mg/dL 12/02/2024 11:12 AM [facility] Creatinine 0.7 0.50 - 0.90 mg/dL 12/02/2024 11:12 AM [facility] Est, Glom Filt Rate >90 >60 mL/min/1.7 3m2 12/02/2024 11:12 AM [facility] Comment: These results are [...] that affects renal tubular secretion. BUN/Creatinine Ratio 10 9 - 20 12/02/2024 11:[address] [facility] Calcium 8.4(L) 8.6 - 10.4 mg/dL 12/02/2024 11:[address] [facility] Total Protein 6.0(L) 6.6 - 8.7 g/dL 12/02/2024 11:12 AM [facility] Albumin 3.7 3.5 - 5.2 g/dL 12/02/2024 11:[address] [facility] Albumin/Globulin Ratio 1.6 1.0 - 2.5 12/02/2024 11:[address] [facility] Total Bilirubin 0.3 0.00 - 1.20 mg/dL 12/02/2024 11:12 AM [facility] Alkaline Phosphatase 66 35 - 104 U/L 12/02/2024 11:12 AM [facility] ALT 37(H) 10 - 35 U/L 12/02/2024 11:12 AM [facility] AST 73(H) 10 - 35 U/L 12/02/2024 11:12 AM [facility] Blood BLOOD SPECIMEN / Unknown 12/02/2024 11:12 AM EDT 12/02/2024 11:14 AM EDT Jose Angel Perez PA-C CHEMISTRY ORDERABLES Final Res ult [facility] [address] [phone] documented in this encounter Visit Diagnoses Diagnosis [...] rate not to exceed 25 mg/min. Given 12/02/2024 11:15 AM EDT 25 mg fentaNYL (SUBLIMAZE) injection 50 mcg 50 mcg, IntraVENous, ONCE, 1 dose, On 12/02/24 at 1115 Given 12/02/2024 11:17 AM EDT 50 mcg morphine sulfate (PF) injection 4 mg 4 mg, IntraVENous, ONCE, 1 dose, On 12/02/24 at 1200, If oral and IV narcotics ordered, use oral first and only use IV if oral is ineffective or cannot take oral. Do Not give oral and IV within 1 hour of each other unless specifically ordered. Given 12/02/2024 12:06 PM EDT 4 mg prochlorperazine (COMPAZINE) injection 10 mg 10 mg, IntraVENous, ONCE, 1 dose, On 12/02/24 at 1115, If administering IV push, administer at a maximum rate of 5 mg/minute. Patients should remain lying down following administration and be reassessed for relief of nausea and presence of hypotension. Patients should be assisted the first time they get up after administration. Given 12/02/2024 11:15 AM EDT 10 mg sodium chloride 0.9 % bolus 1,000 mL 1,000 mL (12.3 mL/kg), IntraVENous, at 495.9 mL/hr, Administer over 121 Minutes, ONCE, On 12/02/24 at 1115, For 1 dose New Bag 12/02/2024 11:14 AM EDT 1,000 mLs 495.9 mL/hr documented in this encounter Active and Recently Administered Medications Times are shown in EDT. Scheduled Medication Order 11/30/2024 12/01/2024 12/02/2024 diphenhydrAMINE (BENADRYL) injection 25 mg (COMPLETED) 25 mg, IntraVENous, ONCE, 1 dose, On 12/02/24 at 1115, IV Push at rate not to exceed 25 mg/min. 1115 (Given - Provid er: Honorio Sapp RN) fentaNYL (SUBLIMAZE) injection 50 mcg (COMPLETED) 50 mcg, IntraVENous, ONCE, 1 dose, On 12/02/24 at 1115 1117 (Given - Provid er: Honorio Sapp RN) morphine sulfate (PF) injection 4 mg (COMPLETED) 4 mg, IntraVENous, ONCE, 1 dose, On 12/02/24 at 1200, If oral and IV narcotics ordered, use oral first and only use IV if oral is ineffective or cannot take oral. Do Not give oral and IV within 1 hour of each other unless specifically ordered. 1206 (Given - Provid er: Honorio Sapp RN) prochlorperazine (COMPAZINE) injection 10 mg (COMPLETED) 10 mg, IntraVENous, ONCE, 1 dose, On 12/02/24 at 1115, If administering IV push, administer at a maximum rate of 5 mg/minute. Patients should remain lying down following administration and be reassessed for relief of nausea and presence of hypotension. Patients should be assisted the first time they get up after administration. 1115 (Given - Provid er: Honorio Sapp RN) sodium chloride 0.9 % bolus 1,000 mL (COMPLETED) 1,000 mL (12.3 mL/kg), IntraVENous, at 495.9 mL/hr, Administer over 121 Minutes, ONCE, On 12/02/24 at 1115, For 1 dose 1114 (New Bag - Prov ider: Honorio Sapp RN)1206 (Stopped - Provider: Honorio Sapp RN) documented in this encounter Care Teams Clinical Product Specialist Relationship Specialty Start Date End Date Thomas Alas MD [address] [place] [address] PCP - General Family Medicine 11/08/24 documented as of this encounter
--- OUTSIDE RECORDS SUMMARY | 2024-12-04 13:45 | XMS_ITS | Clinical Summary ---
Author Organization [employer] Address [id number] [address] [place] [address] Care Team Providers Care Label Operator Name Role Phone No Pcp, No [...] Noted Date Diagnosed Date Hypothyroidism affecting in [facility] 09/22/2017 Family History Medical History Relation Name [...] on file Insurance [employer] Care Teams Label Operator Relationship Specialty Start Date End Date No Pcp, [place] [address] PCP - General Family Medicine 09/22/17
--- OUTSIDE RECORDS SUMMARY | 2024-12-04 13:45 | XMS_ITS | Encounter Summary ---
Author Organization [facility] Address [address] [place] [address] Care Team Providers Care Alarm Adjuster Name Role Phone Anna Mendez DRAFTER DIRECTIONAL SURVEY Unavailable Unallocated, Noms Provider Primary Care Provi pako Tj Najera Unavailable [phone] Thomas Alas MD Primary Care Provider [phone] Encounter Details Date Type Department Care Team (Late st Contact Info) Description 10/30/2022 Abstract [facility] [address] [place] [address] Tj Najera, PA [address] [place] [address] Social History Tobacco Use Types [...] on filedocumented in this encounter Care Teams Alarm Adjuster Relationship Specialty Start Date End Date Unallocated, Noms Provider, [address] [address] PCP - General 07/23/22 12/13/23 Tj Najera PA [address] [place] [address] PCP - Medical [facility] 07/16/22 04/24/23 Thomas Alas MD [address] [place] [address] PCP - General Family Medicine 12/14/23 Anna Mendez NP [address] [place] [address] Referring Physician Family Medicine 07/23/22 documented as of this encounter
--- OUTSIDE RECORDS SUMMARY | 2024-12-04 13:45 | XMS_ITS | Encounter Summary ---
Author Organization [facility] Address [address] [place] [address] Care Team Providers Care Signal Person Name Role Phone Anna Mendez TOOL DRESSER Unavailable Unallocated, Noms Provider Primary Care Provi pako Tj Najera Unavailable [phone] Thomas Alas MD Primary Care Provider [phone] Encounter Details Date Type Department Care Team (Late st Contact Info) Description 11/20/2022 Abstract [facility] [address] [place] [address] Tj Najera, PA [address] [facility] [address] Social History Tobacco Use Types [...] on filedocumented in this encounter Care Teams Signal Person Relationship Specialty Start Date End Date Unallocated, Noms ProviderMD [address] [place] [address] PCP - General 07/23/22 12/13/23 Tj Najera PA [address] [place] [address] PCP - Medical [facility] 07/16/22 04/24/23 Thomas Alas MD [address] [place] [address] PCP - General Family Medicine 12/14/23 Anna Mendez NP [address] [place] [address] Referring Physician Family Medicine 07/23/22 documented as of this encounter
--- OUTSIDE RECORDS SUMMARY | 2024-12-04 13:45 | XMS_ITS | Encounter Summary ---
Author Organization [facility] Address [address] [place] [address] Care Team Providers Care Camp Recreation Specialist Name Role Phone VanessaAnna hnedricks VIRGINIA LINE ATTENDANT Unavailable Unallocated, Noms Provider Primary Care Provi pako Tj Najera Unavailable [phone] Thomas Alas MD Primary Care Provider [phone] Encounter Details Date Type Department Care Team (Late st Contact Info) Description 10/02/2022 Abstract [facility] [address] [place] [address] Raegan Frye PA [address] [place], [place] [id number] Social History Tobacco Use Types Packs/Day Years [...] on filedocumented in this encounter Care Teams Camp Recreation Specialist Relationship Specialty Start Date End Date Unallocated, [place] [address] PCP - General 07/23/22 12/13/23 Tj Najera PA [address] [place] [address] PCP - Medical [facility] 07/16/22 04/24/23 Thomas Alas MD [address] [place] [address] PCP - General Family Medicine 12/14/23 Anna Mendez NP [address] [place] [address] Referring Physician Family Medicine 07/23/22 documented as of this encounter
--- OUTSIDE RECORDS SUMMARY | 2024-12-04 13:45 | XMS_ITS | Encounter Summary ---
Author Organization [facility] Address [address] [place] [address] Care Team Providers Care Airplane Gastank Liner Assembler Name Role Phone Anna Mendez KALSOMINER Unavailable Unallocated, Noms Provider Primary Care Provi pako Tj Najera Unavailable [phone] Thomas Alas MD Primary Care Provider [phone] Encounter Details Date Type Department Care Team (Late st Contact Info) Description 09/07/2022 Abstract [facility] [address] [place] [address] Tj Najera, PA [address] [facility] [place] [address] Social History Tobacco Use Types [...] filedocumented in this encounter Care Teams Airplane Gastank Liner Assembler Relationship Specialty Start Date End Date Unallocated, Noms Provider, [address] [place] [address] PCP - General 07/23/22 12/13/23 Tj Najera PA [address] [place] [address] PCP - Medical [facility] 07/16/22 04/24/23 Thomas Alas MD [address] [place] [address] PCP - General Family Medicine 12/14/23 Anna Mendez NP [address] [place] [address] Referring Physician Family Medicine 07/23/22 documented as of this encounter
--- OUTSIDE RECORDS SUMMARY | 2024-12-04 13:45 | XMS_ITS | Encounter Summary ---
Author Organization [facility] Address [address] [place] [address] Care Team Providers Care Assistant Tennis Coach Name Role Phone Anna Mendez INSEAM TRIMMER Unavailable Unallocated, Noms Provider Primary Care Provi pako Tj Najera Unavailable [phone] Thomas Alas MD Primary Care Provider [phone] Encounter Details Date Type Department Care Team (Late st Contact Info) Description 10/05/2022 Abstract [facility] [address] [place] [address] Tj Najera, PA [address] [facility] [place] [address] Social History Tobacco Use Types [...] on filedocumented in this encounter Care Teams Assistant Tennis Coach Relationship Specialty Start Date End Date Unallocated, Noms Provider, [address] [place] [address] PCP - General 07/23/22 12/13/23 Tj Najera PA [address] [place] [address] PCP - Medical [facility] 07/16/22 04/24/23 Thomas Alas MD [address] [place] [address] PCP - General Family Medicine 12/14/23 Anna Mendez NP [address] [place] [address] Referring Physician Family Medicine 07/23/22 documented as of this encounter
--- OUTSIDE RECORDS SUMMARY | 2024-12-04 13:48 | XMS_ITS | Encounter Summary ---
Author Organization [facility] [employer] [facility] tem Address [id number] [address] [place] [address] Care Team Providers Care Cmm Inspector Name Role Phone No Pcp, No Pcp Primary Care Provider Unavailabl e Encounter Details Date Type Department Care Team (Late st Contact Info) Description 09/28/2017 Orders Only Maternal- Medicine at [facility] [address] [place] [phone] Holger Alcala MD [address] [facility] [address] [place] [address] Social History Tobacco Use Types Packs/Day Years [...] on filedocumented in this encounter Care Teams Cmm Inspector Relationship Specialty Start Date End Date No Pcp, [place] [address] PCP - General Family Medicine 09/22/17 documented as of this encounter
--- OUTSIDE RECORDS SUMMARY | 2024-12-04 13:48 | XMS_ITS | Encounter Summary ---
Author Organization [facility] tem Address [id number] [address] [place] [address] Care Team Providers Care Otorhinolaryngologist Name Role Phone No Pcp, No Pcp Primary Care Provider Unavailabl e Reason for Visit * Reason Comments Med Refill Encounter Details Date Type Department Care Team (Late st Contact Info) Description 09/17/2019 Refill Maternal- Medicine at [facility] [address] [place] [phone] Marc Martines MD Gestational diabetes mellitus (GDM) controlled on oral [...] documented as of this encounter Care Teams Otorhinolaryngologist Relationship Specialty Start Date End Date No Pcp, [place] [address] PCP - General Family Medicine 09/22/17 documented as of this encounter
--- OUTSIDE RECORDS SUMMARY | 2024-12-04 13:48 | XMS_ITS ---
Author Organization [facility] Address [address] [place] [address] Care Team Providers Care City Councilman Name Role Phone Thomas Alas MD Primary Care Provider [phone] Active Problems Problem Noted Date Diagnosed Date Common bile duct dilatation 11/16/2024 Assessment & Plan (11/16/2024 2:13 AM EDT): CT chest/abd/pelvis noted CBD dilation and apperance of complex inflammatory changes. Patient has required multiple doses of opiates and antiemetics to control symptoms. Request to transfer to the [facility] where much of her advanced care [...] pain today patient brought urgently back to Supervisor Mail Carriers Assessment & Plan (11/01/2024 11:57 AM EDT): [...] pain today patient brought urgently back to [employer]visor [employer] Sepsis due to Klebsiella 08/18/2024 Assessment & Plan (08/19/2024 1:03 PM EDT): - source is likely the cellulitis around the J-tube status post J-tube removal. - CT scan from [facility] showing no abscess. - Infectious disease recommendations appreciated, continue with ceftriaxone. - Repeat blood cultures on 08/16: NGTD - central line in place, does not look like infected, continue monitoring, central line care. Assessment & Plan (08/18/2024 12:20 PM EDT): - source is likely the cellulitis around the J-tube status post J-tube removal. - CT scan from [facility] showing no abscess. - Infectious disease recommendations appreciated, continue with ceftriaxone. - Repeat blood cultures on 08/16: NGTD - central line in place, does not look like infected, continue monitoring, central line care. Sepsis due to Enterococcus 08/18/2024 Assessment & Plan (08/19/2024 1:03 PM EDT): - source is likely the cellulitis around the J-tube status post J-tube removal. - CT scan from [facility] showing no abscess. - Infectious disease recommendations appreciated, continue with ceftriaxone. - Repeat blood cultures on 08/16: NGTD - central line in place, does not look like infected, continue monitoring, central line care. Assessment & Plan (08/18/2024 12:20 PM EDT): - source is likely the cellulitis around the J-tube status post J-tube removal. - CT scan from [facility] showing no abscess. - Infectious disease recommendations [...] and scheduled tramadol. Continue with as needed Franklin. Assessment & Plan (08/18/2024 12:20 PM EDT): - continue with home meds including fentanyl patch and scheduled tramadol. Continue with as needed [place]. MALT (mucosa associated lymphoid tissue) 025 Assessment [...] daily DVT prophylaxis is VTE protocols per [facility] GI prophy Protonix Monitor labs) Obtain [...]
--- OUTSIDE RECORDS SUMMARY | 2024-12-04 13:48 | XMS_ITS | Encounter Summary ---
Author Organization [facility] Address [address], [address] [place] [address] Care Team Providers Care Land Reclamation Specialist Name Role Phone Thomas Alas MD Primary Care Provider [phone] Encounter Details Date Type Department Care Team (Latest Contact Info) Description 11/23/2024 Travel Social History Tobacco Use Types Packs/Day [...] on filedocumented in this encounter Care Teams Land Reclamation Specialist Relationship Specialty Start Date End Date Thomas Alas MD [address] [place] [address] PCP - General Family Medicine 11/08/24 documented as of this encounter
--- OUTSIDE RECORDS SUMMARY | 2024-12-04 13:48 | XMS_ITS | Encounter Summary ---
Author Organization [facility] Address [address], [address] [place] [address] Care Team Providers Care Parking Analyst Name Role Phone Thomas Alas MD Primary Care Provider [phone] Encounter Details Date Type Department Care Team (Latest Contact Info) Description 12/02/2024 Travel Social History Tobacco Use Types Packs/Day [...] on filedocumented in this encounter Care Teams Parking Analyst Relationship Specialty Start Date End Date Thomas Alas MD [address] [place] [address] PCP - General Family Medicine 11/08/24 documented as of this encounter
--- OUTSIDE RECORDS SUMMARY | 2024-12-04 13:49 | XMS_ITS | Clinical Summary ---
Author Organization [facility] Address [address] [place] [address] Care Team Providers Care [employer] Consultant Name Role Phone Britt Alas MD Primary Care Provider [phone] Allergies Active Allergy Reactions Criticality Noted Date [...] 75 mcg by mouth before breakfast. Active acetaminophen (Tylenol) 325 mg tablet Take 650 mg by mouth every 4 (four) hours if needed for mild pain (1-3 pain score). Active omeprazole (PriLOSEC) [address] capsule [...] the skin every 3rd (third) day. Active hydrocortison e (Cortef) 10 mg tablet Take 10 mg by mouth in the morning. Active hydrOXYzine HCL (Atarax) 25 mg tablet Take 50 mg by mouth if needed at bedtime. Active sucralfate (Carafate) 1 gram tablet Take 1 g by mouth before breakfast, before lunch, before evening meal, and at bedtime. Active traMADol (Ultram) 50 mg tablet Take 50 mg by mouth every 6 (six) hours if needed. Active aspirin 81 mg chewable tabletIndicat ions:Spontane ous dissection of coronary artery Chew 1 tablet (81 mg) with breakfast for 120 doses. 30 tablet 3 11/04/19 25 026 Active clopidogrel (Plavix) 75 mg tabletIndicat ions:Spontane ous dissection of coronary artery Take 1 tablet (75 mg) by mouth in the morning for 120 doses. 30 tablet 3 11/04/19 25 026 Active metoclopramid e (Reglan) 10 mg tabletIndicat ions:Gastropa resis Take 1 tablet (10 mg) by mouth if needed in the morning and at bedtime (nausea and vomiting). 60 tablet 11/03/19 25 Active metoprolol succinate XL (Toprol-XL) 25 mg 24 hr tabletIndicat ions:Hematoma Take 1 tablet (25 mg) by mouth in the morning for 92 doses. Do not crush or chew. Do not start before November 08, 2024. 30 tablet 3 11/09/19 25 025 Active verapamil (Calan) 40 mg tabletIndicat ions:Hematoma Take 1 tablet (40 mg) by mouth every 8 (eight) hours for 287 doses. 90 tablet 3 11/08/19 25 025 Active rosuvastatin (Crestor) 40 mg tabletIndicat ions:Hematoma Take 1 tablet (40 mg) by mouth at bedtime for 99 doses. 30 tablet 3 11/08/19 25 025 Active naloxone (Narcan) 0.4 mg/mL injectionIndi cations:Chron ic narcotic use Infuse 1 mL (0.4 mg) into a venous catheter if needed for opioid reversal. 1 mL 11/14/19 25 025 Active ranolazine (Ranexa) 500 mg 12 hr tabletIndicat ions:Chest pain Take 1 tablet (500 mg) by mouth two times daily for 189 doses. Do not crush, chew, or split. 60 tablet 3 11/14/19 25 026 Active colchicine 0.6 mg tabletIndicat ions:Chest pain Take 0.5 tablets (0.3 mg) by mouth every other day. Do not start before November 14, 2024. 8 tablet 11/15/19 25 Active fentaNYL (Duragesic) 12 mcg/hr Place 1 patch on the skin every 3rd (third) day. Give with 25 mcg patch Active HYDROcodone-a cetaminophen ([place]) 5-325 mg tablet Take 2 tablets by mouth every 4 (four) hours if needed. Active methocarbamol (Robaxin) 750 mg tablet Take 750 mg by mouth three times daily. Active mirtazapine (Remeron) 45 mg tablet Take 45 mg by mouth at bedtime. Active linaCLOtide (Linzess) 290 mcg capsule Take 290 mcg by mouth before breakfast. Do not crush or chew. Discontinued(St op Taking at Discharge) mirtazapine (Remeron) 30 mg tablet Take 45 mg by mouth at bedtime. Discontinued methocarbamol (Robaxin) 500 mg tablet Take 750 mg by mouth four times daily. Discontinued dexAMETHasone (Decadron) 2 mg tablet Take 3 mg by mouth in the morning. Discontinued(St op Taking at Discharge) ergocalcifero l (Vitamin D-2) 1.25 MG (48716 Units) capsule Take 50,000 Units by mouth 1 (one) time per week. Discontinued(St op Taking at Discharge) fentaNYL (Duragesic) 12 mcg/hr Place 1 patch on the skin every 3rd (third) day. Takes 12 mcg and 25 mcg together every 3 days Discontinued(St op Taking at Discharge) HYDROcodone-a cetaminophen ([place]) 5-325 mg tablet Take 2 tablets by mouth every 4 (four) hours if needed for moderate-sever e pain (4-10 pain score). Discontinued(St op Taking at Discharge) metFORMIN, OSM, (Fortamet) 500 mg 24 hr tablet Take 500 mg by mouth with breakfast and with evening meal. Do not crush, chew, or split. Discontinued prochlorperaz ine (Compazine) 10 mg tablet Take 10 mg by mouth every 6 (six) hours if needed for nausea or vomiting. 025 Discontinued(St op Taking at Discharge) atorvastatin (Lipitor) 80 mg tabletIndicat ions:Spontane ous dissection of coronary artery Take 1 tablet (80 mg) by mouth at bedtime for 120 doses. 30 tablet 3 11/03/19 25 025 Discontinued(St op Taking at Discharge) metoprolol succinate XL (Toprol-XL) 25 mg 24 hr tabletIndicat ions:Spontane ous dissection of coronary artery Take 0.5 tablets (12.5 mg) by mouth in the morning for 120 doses. Do not crush or chew. 15 tablet 3 11/04/19 025 Discontinued(St op Taking at Discharge) colchicine 0.6 mg tabletIndicat ions:Chest pain Take 0.5 tablets (0.3 mg) by mouth every other day for 49 doses. 8 tablet 3 11/15/19 025 Discontinued cefpodoxime (Vantin) 200 mg tablet Take 1 tablet (200 mg) by mouth two times daily for 7 days. 14 tablet 11/27/19 Additional Information Patient not taking.Reported on 12/04/2024 Active Problems Problem Noted Date Diagnosed Date Common bile duct dilatation 11/16/2024 Assessment & Plan (11/16/2024 2:13 AM EDT): CT chest/abd/pelvis noted CBD dilation and apperance of complex inflammatory changes. Patient has required multiple doses of opiates and antiemetics to control symptoms. Request to transfer to the [facility] where much of her advanced care [...] pain today patient brought urgently back to [employer] Assessment & Plan (11/01/2024 11:57 AM EDT): [...] pain today patient brought urgently back to [employer] Sepsis due to Klebsiella 08/18/2024 Assessment & Plan (08/19/2024 1:03 PM EDT): - source is likely the cellulitis around the J-tube status post J-tube removal. - CT scan from [facility] showing no abscess. - Infectious disease recommendations appreciated, continue with ceftriaxone. - Repeat blood cultures on 08/16: NGTD - central line in place, does not look like infected, continue monitoring, central line care. Assessment & Plan (08/18/2024 12:20 PM EDT): - source is likely the cellulitis around the J-tube status post J-tube removal. - CT scan from [facility] showing no abscess. - Infectious disease recommendations appreciated, continue with ceftriaxone. - Repeat blood cultures on 08/16: NGTD - central line in place, does not look like infected, continue monitoring, central line care. Sepsis due to Enterococcus 08/18/2024 Assessment & Plan (08/19/2024 1:03 PM EDT): - source is likely the cellulitis around the J-tube status post J-tube removal. - CT scan from [facility] showing no abscess. - Infectious disease recommendations appreciated, continue with ceftriaxone. - Repeat blood cultures on 08/16: NGTD - central line in place, does not look like infected, continue monitoring, central line care. Assessment & Plan (08/18/2024 12:20 PM EDT): - source is likely the cellulitis around the J-tube status post J-tube removal. - CT scan from [facility] showing no abscess. - Infectious disease [...] and scheduled tramadol. Continue with as needed [place]. Assessment & Plan (08/18/2024 12:20 PM EDT): - continue with home meds including fentanyl patch and scheduled tramadol. Continue with as needed [place]. MALT (mucosa associated lymphoid tissue) 025 Assessment [...] daily DVT prophylaxis is VTE protocols per [facility] GI prophy Protonix Monitor labs) Obtain [...] Encounters Date Type Department Care Team Description 12/04/2024 Travel 12/01/2024 Orders Only [facility] Endoscopy [address] [place] [address] Muna Michael, DEE Common bile duct dilation (Primary Dx) 11/26/2024 7:34 PM EDT - 11/26/2024 9:45 PM EDT Emergency [facility] Emergency [address] [place] [phone] Israel Jeong MD Acute UTI (Primary Dx) Discharge Disposition: Home or Self Care () 11/26/2024 Travel 11/15/2024 7:56 PM EDT - 11/17/2024 2:42 PM EDT Hospital Encounter [facility] [address] [place] [phone] Sandeep Casey MD Chest pain (Primary Dx) Discharge Disposition: Home-Health Care Svc () 11/15/2024 Travel 11/09/2024 10:47 AM EDT - 11/13/2024 2:34 PM EDT Hospital Encounter [facility] [address] [place] [phone] Urbano Santos MD Chang, Kyu Chul, MD Schwarz, Stephanie, DO Chest pain (Primary Dx); Chronic narcotic use Discharge Disposition: Home-Health Care Svc (06) 11/09/2024 Travel 11/02/2024 8:45 PM EDT Anesthesia Event [facility] Main Operating Room [address] [place] [phone] David Reyes MD 11/02/2024 8:45 PM EDT - 11/02/2024 11:15 PM EDT Surgery [facility] Main Operating Room [address] [place] [address] Jose Angel Fox MD EXPLORATION, HEMATOMA Right Groin 11/02/2024 5:41 PM EDT - 11/02/2024 6:41 PM EDT Surgery [facility] Heart [facility] [address] [place] [phone] Wali Collins MD Coronary angiography 11/01/2024 12:30 PM EDT - 11/01/2024 1:30 PM EDT Surgery [facility] Vascular Lab [address] [place] [address] Mitchell Agustin MD Coronary angiography 10/31/2024 1:30 PM EDT - 10/31/2024 2:30 PM EDT Surgery [facility] Vascular Lab [address] [place] [phone] Tino Gilmore MD Coronary angiography 10/30/2024 6:28 PM EDT - 11/07/2024 5:10 PM EDT Hospital Encounter [facility] [address] [place] [phone] Sandeep Casey MD Spencer, Caleb T, MD Vicente, David, MD Mansur, Sarmed, MD Moukarbel, George, MD Hematoma (Primary Dx); Chest pain; NSTEMI (non-ST elevated myocardial infarction) (CMS/HCC); Spontaneous dissection of coronary artery; Gastroparesis; Gastroesophageal reflux disease without esophagitis Discharge Disposition: Home-Health Care [facility] (06) 10/30/2024 Travel from Last 3 Months Family History [...] 0.6 oz pur e alcohol) [facility] Utilities Answer Date Recorded In the [...] living in a jail (including now)? No 11/15/2024 Hunger Vital Sign [...] Mass Index 29.05 11/26/2024 7:34 PM EDT Plan of Treatment Upcoming Encounters Date Type Department Care Team (Late st Contact Info) Description 12/06/2024 11:20 AM EDT Office Visit [facility] [address] [place] [address] Wali Collins MD [address] [place] [address] 12/14/2024 9:00 AM EDT Appointment [facility] Invasive Surgery Center Endoscopy [address] [place] [address] Braxton Bellamy MD [address] [facility] [address] [facility] [place] [address] 12/14/2024 10:30 AM EDT Appointment [facility] X-Ray Imaging [address] [place] [address] Health Maintenance Due Date Last Done Comments [...] SERUM QUALITATIVE STAT 11/26/2024 8:27 PM EDT URINALYSIS WITH REFLEX CULTURE STAT 11/26/2024 8:27 PM EDT XR CHEST 1 VIEW STAT 11/26/2024 8:17 PM EDT ECG 12-LEAD STAT 11/26/2024 8:13 PM EDT CBC WITH AUTO DIFFERENTIAL STAT 11/26/2024 8:05 PM EDT HIGH SENSITIVITY TROPONIN I STAT 11/26/2024 8:05 PM EDT LIPASE STAT 11/26/2024 8:05 PM EDT COMPREHENSIVE METABOLIC PANEL STAT 11/26/2024 8:05 PM EDT CBC AND DIFFERENTIAL STAT 11/26/2024 8:05 PM EDT HEPATIC FUNCTION PANEL Add-On 11/17/2024 5:17 [...] BLOOD CELLS Routine 11/02/2024 9:10 PM EDT WV AN ELECTIVE ENDOTRACHEAL AIRWAY Routine 11/02/2024 8:56 [...] METABOLIC PANEL STAT 10/30/2024 7:11 PM EDT from Last 3 Months Results * Urinalysis microscopic with reflex culture (11/26/2024 8:27 PM EDT) RBC, Urine 0-2 None Seen, 0-2 /HPF 11/26/2024 8:52 PM EDT [facility] ([facility]) WBC, Urine 0-2 None Seen, 0-2 /HPF 11/26/2024 8:52 PM EDT [facility] Squamous Epithelial, Urine None Seen None Seen, Occasional , Few /LPF 11/26/2024 8:52 PM EDT [facility] Mucus, Urine Occasional None Seen, Occasional , Few /LPF 11/26/2024 8:52 PM EDT [facility] Urine Urine specimen obtained by clean catch procedure / Unknown Non-blood Collection / Unknown 11/26/2024 8:27 PM EDT 11/26/2024 8:33 PM EDT us Israel Jeong MD LAB URINE ORDERABLES Final Resul t [facility] ([facility]) [address] [place] [address] * (ABNORMAL) Urinalysis with reflex culture (11/26/2024 8:27 PM EDT) Color, Urine Dark-Yellow( A) Colorless, Yellow, Light-Yellow 11/26/2024 8:52 PM EDT [facility] ([facility]) Clarity, Urine Clear Clear 11/26/2024 8:52 PM EDT [facility] ([facility]) pH, Urine 7.0 5.0 - 8.0 pH 11/26/2024 8:52 PM EDT [facility] ([facility]) Leukocytes, Urine Trace(A) Negative 11/26/2024 8:52 PM EDT [facility] ([facility]) Nitrite, Urine Positive(A) Negative 11/26/2024 8:52 PM EDT [facility] ([facility]) Protein, Urine Negative Negative mg/dL 11/26/2024 8:52 PM EDT [facility] ([facility]) Glucose, Urine Normal Normal mg/dL 11/26/2024 8:52 PM EDT [facility] ([facility]) Bilirubin, Urine Small(A) Negative 11/26/2024 8:52 PM EDT [facility] ([facility]) Specific [place], Urine 1.018 1.010 - 1.030 11/26/2024 8:52 PM EDT [facility] ([facility]) Ketones, Urine Negative Negative mg/dL 11/26/2024 8:52 PM EDT [facility] ([facility]) Blood, Urine Negative Negative 11/26/2024 8:52 PM EDT [facility] ([facility]) Urobilinogen, Urine 4.0(A) Normal mg/dL 11/26/2024 8:52 PM EDT [facility] ([facility]) Urine Urine specimen obtained by clean catch procedure / Unknown Non-blood Collection / Unknown 11/26/2024 8:27 PM EDT 11/26/2024 8:33 PM EDT us Israel Jeong MD LAB URINE ORDERABLES Final Resul t Performing Organization Address City/[facility]/ZIP Co de Phone Number [facility] ([facility]) [address] [place] [address] * Serum Qualitative (11/26/2024 8:27 PM EDT) hCG, Serum Negative 11/26/2024 8:51 PM EDT [facility] ([facility]) Blood Venous blood specimen / Unknown Existing Catheter / Unknown 11/26/2024 8:27 PM EDT 11/26/2024 8:33 PM EDT us Israel Jeong MD LAB BLOOD ORDERABLES Final Resul t Performing Organization Address City/[facility] Co de Phone Number [facility] ([place]) [address] [place] [address] * XR chest 1 view (11/26/2024 8:17 PM EDT) Only the most recent of3 [...] No pleural effusion. No pneumothorax. Procedure Note Alieen Grace MD - 11/26/2024 XR CHEST 1 [...] ECG 12 lead (11/26/2024 8:13 PM EDT) Only the most recent of14 resultswithin the time period is included. Ventricular Rate 70 BPM GE MUSE Atrial Rate 70 BPM GE MUSE WV Interval 150 ms GE MUSE QRS DURATION 88 ms GE MUSE QT Interval 436 ms GE MUSE QTC CALCULATION(BAZE TT) 470 ms GE MUSE P [place] 63 degrees GE MUSE R-[place] 43 degrees GE MUSE T Wave [place] 43 degrees GE MUSE 11/26/2024 7:52 PM [...] Tino Gilmore (69) on 11/26/2024 8:15:28 PM us Israel Jeong MD ECG ORDERABLES Final Result GE MUSE * HS Troponin I (11/26/2024 8:05 PM EDT) Only the most recent of21 resultswithin the time period is included. [facility] High Sensitivity Troponin I <2 <15 ng/L 11/26/2024 8:42 PM EDT [facility] ([facility]) Blood Venous blood specimen / Unknown Existing Catheter / Unknown 11/26/2024 8:05 PM EDT 11/26/2024 8:13 PM EDT us Israel Jeong MD LAB BLOOD ORDERABLES Final Resul t Performing Organization Address City/[facility]/ZIP Co de Phone Number [facility] ([facility]) [address] [place] [address] * (ABNORMAL) CBC auto differential (11/26/2024 8:05 PM EDT) Only the most recent of4 resultswithin the time period is included. [facility] Auto WBC 5.23 4.00 - 10.60 10*3/uL 11/26/2024 8:18 PM EDT [facility] ([facility]) RBC 3.37(L) 3.80 - 5.00 10*6/uL 11/26/2024 8:18 PM EDT [facility] ([facility]) Hemoglobin 9.9(L) 12.0 - 15.0 g/dL 11/26/2024 8:18 PM EDT [facility] ([facility]) Hematocrit 29.9(L) 36.0 - 45.0 % 11/26/2024 8:18 PM EDT [facility] ([facility]) MCV 88.7 82.0 - 98.0 fL 11/26/2024 8:18 PM EDT [facility] ([facility]) MCH 29.4 27.0 - 33.0 pg 11/26/2024 8:18 PM EDT [facility] ([facility]) MCHC 33.1 32.0 - 35.0 g/dL 11/26/2024 8:18 PM EDT [facility] ([facility]) RDW 14.0 11.5 - 15.0 % 11/26/2024 8:18 PM EDT [facility] ([facility]) Neutrophils % 44.5 40.0 - 72.0 % 11/26/2024 8:18 PM EDT [facility] ([facility]) Lymphocytes % 40.5 20.0 - 45.0 % 11/26/2024 8:18 PM EDT [facility] ([facility]) Monocytes % 10.9 5.0 - 12.0 % 11/26/2024 8:18 PM EDT [facility] ([facility]) Eosinophils % 3.1 0.0 - 6.0 % 11/26/2024 8:18 PM EDT [facility] ([facility]) Basophils % 0.8 0.0 - 1.0 % 11/26/2024 8:18 PM EDT [facility] ([facility]) Neutrophils Absolute 2.33 1.60 - 7.60 10*3/uL 11/26/2024 8:18 PM EDT [facility] ([facility]) Lymphocytes Absolute 2.12 1.20 - 4.00 10*3/uL 11/26/2024 8:18 PM EDT [facility] ([facility]) Monocytes Absolute 0.57 0.10 - 1.00 10*3/uL 11/26/2024 8:18 PM EDT [facility] ([facility]) Eosinophils Absolute 0.16 0.00 - 0.50 10*3/uL 11/26/2024 8:18 PM EDT [facility] ([facility]) Basophils Absolute 0.04 0.00 - 0.20 10*3/uL 11/26/2024 8:18 PM EDT [facility] ([facility]) Platelets 316 150 - 400 10*3/uL 11/26/2024 8:18 PM EDT [facility] ([facility]) nRBC % 0.0 0 % 11/26/2024 8:18 PM EDT [facility] ([facility]) Immature Granulocytes % 0.2 0.0 - 1.0 % 11/26/2024 8:18 PM EDT [facility] ([facility]) Immature Granulocytes Absolute 0.01 0.00 - 0.20 10*3/uL 11/26/2024 8:18 PM EDT [facility] ([facility]) Blood Venous blood specimen / Unknown Existing Catheter / Unknown 11/26/2024 8:05 PM EDT 11/26/2024 8:13 PM EDT us Israel Jeong MD LAB BLOOD ORDERABLES Final Resul t Performing Organization Address City/[facility]/ZIP Co de Phone Number [facility] [address] [place] [address] * Lipase (11/26/2024 8:05 PM EDT) Lipase 55 11 - 82 U/L 11/26/2024 8:36 PM EDT [facility] ([facility]) Blood Venous blood specimen / Unknown Existing Catheter / Unknown 11/26/2024 8:05 PM EDT 11/26/2024 8:13 PM EDT us Israel Jeong MD LAB BLOOD ORDERABLES Final Resul t Performing Organization Address City/[facility]/ZIP Co de Phone Number [facility] ([facility]) [address] [place] [phone] * (ABNORMAL) Comprehensive metabolic panel (11/26/2024 8:05 PM EDT) Only the most recent of2 resultswithin the time period is included. Sodium 139 136 - 145 mmol/L 11/26/2024 8:36 PM EDT [facility] ([facility]) Potassium 3.7 3.5 - 5.1 mmol/L 11/26/2024 8:36 PM EDT [facility] ([facility]) Chloride 112(H) 98 - 107 mmol/L 11/26/2024 8:36 PM EDT [facility] ([facility]) CO2 22 21 - 31 mmol/L 11/26/2024 8:36 PM EDT [facility] ([facility]) Anion Gap 9 7 - 20 mmol/L 11/26/2024 8:36 PM EDT [facility] ([facility]) BUN 9 7 - 25 mg/dL 11/26/2024 8:36 PM [facility] ([facility]) Creatinine 0.59(L) 0.60 - 1.20 mg/dL 11/26/2024 8:36 PM [facility] ([facility]) BUN/Creatinine Ratio 15.3 11/15 8:36 PM [facility] ([facility]) Glucose 72 70 - 100 mg/dL 11/26/2024 8:36 PM [facility] ([facility]) Calcium 7.4(L) 8.6 - 10.3 mg/dL 11/26/2024 8:36 PM [facility] ([facility]) AST 24 13 - 39 U/L 11/26/2024 8:36 PM [facility] ([facility]) ALT (SGPT) 12 7 - 52 U/L 11/26/2024 8:36 PM [facility] ([facility]) Alkaline Phosphatase 78 34 - 104 U/L 11/26/2024 8:36 PM [facility] ([facility]) Total Protein 5.6(L) 6.0 - 8.3 g/dL 11/26/2024 8:36 PM [facility] ([facility]) Albumin 3.6 3.5 - 5.7 g/dL 11/26/2024 8:36 PM [facility] ([facility]) Total Bilirubin 0.2(L) 0.3 - 1.0 mg/dL 11/26/2024 8:36 PM [facility] ([facility]) eGFR 120.5 >60.0 mL/min/1. 73m*2 11/26/2024 8:36 PM [facility] ([facility]) Comment:[facility] s [...] MD LAB BLOOD ORDERABLES Final Resul t [facility] ([facility]) [address] [place], [place] [id number] * (ABNORMAL) CBC (11/17/2024 5:17 AM EDT) Only the most recent of15 resultswithin the time period is included. Auto WBC 2.92(L) 4.00 - 10.60 10*3/uL 11/17/2024 5:40 AM EDT [facility] ([facility]) RBC 2.88(L) 3.80 - 5.00 10*6/uL 11/17/2024 5:40 AM EDT [facility] ([facility]) Hemoglobin 8.5(L) 12.0 - 15.0 g/dL 11/17/2024 5:40 AM EDT [facility] ([facility]) Hematocrit 25.9(L) 36.0 - 45.0 % 11/17/2024 5:40 AM EDT [facility] ([facility]) MCV 89.9 82.0 - 98.0 fL 11/17/2024 5:40 AM EDT [facility] ([facility]) MCH 29.5 27.0 - 33.0 pg 11/17/2024 5:40 AM EDT [facility] ([facility]) MCHC 32.8 32.0 - 35.0 g/dL 11/17/2024 5:40 AM EDT [facility] ([facility]) RDW 14.6 11.5 - 15.0 % 11/17/2024 5:40 AM EDT [facility] ([facility]) Platelets 292 150 - 400 10*3/uL 11/17/2024 5:40 AM EDT [facility] ([facility]) Blood Venous blood specimen / Unknown Existing Catheter / Unknown 11/17/2024 5:17 AM EDT 11/17/2024 5:25 AM EDT us Sandeep Casey MD LAB BLOOD ORDERABLES Final Resul t [facility] [address] [place] [address] * Magnesium (11/17/2024 5:17 AM EDT) Only the most recent of10 resultswithin the time period is included. Pathologist [facility] Magnesium 1.9 1.9 - 2.7 mg/dL 11/17/2024 7:00 AM EDT [facility] ([facility]) Blood Venous blood specimen / Unknown Existing Catheter / Unknown 11/17/2024 5:17 AM EDT 11/17/2024 5:24 AM EDT Sandeep Casey MD LAB BLOOD ORDERABLES Final Resul t Performing Organization Address City/[facility] Co de Phone Number [facility] [address] [place] [id number] * (ABNORMAL) Hepatic function panel (11/17/2024 5:17 AM EDT) Only the most recent of2 resultswithin the time period is included. Total Bilirubin 0.3 0.3 - 1.0 mg/dL 11/17/2024 8:50 AM EDT [facility] Bilirubin, Direct 0.0 0 - 0.2 mg/dL 11/17/2024 8:50 AM EDT [facility] ([facility]) Alkaline Phosphatase 46 34 - 104 U/L 11/17/2024 8:50 AM EDT [facility] ([facility]) AST 20 13 - 39 U/L 11/17/2024 8:50 AM EDT [facility] ([facility]) ALT (SGPT) 11 7 - 52 U/L 11/17/2024 8:50 AM EDT [facility] ([facility]) Total Protein 5.2(L) 6.0 - 8.3 g/dL 11/17/2024 8:50 AM EDT [facility] ([facility]) Albumin 3.2(L) 3.5 - 5.7 g/dL 11/17/2024 8:50 AM EDT [facility] ([facility]) Blood Venous blood specimen / Unknown Existing Catheter / Unknown 11/17/2024 5:17 AM EDT 11/17/2024 5:24 AM EDT us Arabella Patel [employer] LAB BLOOD ORDERABLES Final Result [facility] ([facility]) [address] [place] [address] * (ABNORMAL) Basic metabolic panel (11/17/2024 5:17 AM EDT) Only the most recent of16 resultswithin the time period is included. Sodium 142 136 - 145 mmol/L 11/17/2024 7:00 AM EDT [facility] ([facility]) Potassium 3.6 3.5 - 5.1 mmol/L 11/17/2024 7:00 AM EDT [facility] ([facility]) Chloride 111(H) 98 - 107 mmol/L 11/17/2024 7:00 AM EDT [facility] ([facility]) CO2 25 21 - 31 mmol/L 11/17/2024 7:00 AM EDT [facility] ([facility]) BUN 10 7 - 25 mg/dL 11/17/2024 7:00 AM EDT [facility] ([facility]) Creatinine 0.72 0.60 - 1.20 mg/dL 11/17/2024 7:00 AM EDT [facility] ([facility]) Glucose 81 70 - 100 mg/dL 11/17/2024 7:00 AM EDT [facility] ([facility]) Calcium 8.0(L) 8.6 - 10.3 mg/dL 11/17/2024 7:00 AM EDT [facility] ([facility]) Anion Gap 10 7 - 20 mmol/L 11/17/2024 7:00 AM EDT [facility] ([facility]) eGFR 111.8 >60.0 mL/min/1. 73m*2 11/17/2024 7:00 AM EDT [facility]) Comment:The [facility] s estimated glomerular [...] BUN/Creatinine Ratio 13.9 04/2024 7:00 AM EDT [facility] ([facility]) Blood Venous blood specimen / Unknown Existing Catheter / Unknown 11/17/2024 5:17 AM EDT 11/17/2024 5:24 AM EDT us Sandeep Casey MD LAB BLOOD ORDERABLES Final Resul t [facility]) [address] [place] [address] * MR abdomen wo contrast MRCP (11/16/2024 [...] signed: Willis Simons MD. Sandeep Casey MD IMG MRI PROCEDURES Final Result * POCT glucose meter (11/13/2024 11:08 AM EDT) Only the most recent of51 resultswithin the time period is included. Glucose POC 97 70 - 105 mg/dL 11/13/2024 11:26 AM EDT [facility] ([facility]) Comment:acarr12 Blood Capillary blood specimen / Unknown 11/13/2024 11:08 AM EDT 11/13/2024 11:26 AM EDT Narrative [facility] ([facility]) - 11/13/2024 11:26 AM EDT Waived Testing in the ED is performed under the ED CLIA certificate #[id number]. us Marky Tavares MD LAB BLOOD ORDERABLES Final Res ult [facility] ([facility]) [address] [place] [address] * CTA Chest W IV Contrast (11/11/2024 8:55 PM EDT) Anatomical Region Laterality Modality Body, Chest Computed Tomogra phy 11/11/2024 9:09 PM EDT Impressions 11/11/2024 10:51 PM EDT No evidence of pulmonary embolism or other acute intrathoracic process. Approved by:lCaus Mello/ 9:16 PM. I, Rebecca Solano,have reviewed the [...] MD IMG CT PROCEDURES Final Result * (ABNORMAL) C-reactive protein (11/11/2024 3:29 PM EDT) CRP 13.4(H) <=5.0 mg/L 11/13/2024 10:24 AM EDT [facility] ([facility]) Comment:Testing performed us ing a new methodology, turbidimetry. Normal ranges have been updated. Old normal range was <8 mg/L. Blood Venous blood specimen / Unknown Existing Catheter / Unknown 11/11/2024 3:29 PM EDT 11/11/2024 3:42 PM EDT us Jonelle Harrison MD LAB BLOOD ORDERABLES Final Res ult [facility] ([facility]) [address] [place] [address] * (ABNORMAL) Sedimentation rate (11/11/2024 6:39 AM EDT) Sed Rate 20(H) <20 mm/hr 11/11/2024 12:20 PM EDT [facility] ([facility]) Blood Venous blood specimen / Unknown Existing Catheter / Unknown 11/11/2024 6:39 AM EDT 11/11/2024 6:43 AM EDT us Jonelle Harrison MD LAB BLOOD ORDERABLES Final Res ult [facility] ([facility]) [address] [place] [address] * LEXISCAN STRESS MYOCARDIAL PERFUSION IMAGING (11/10/2024 11:23 AM EDT) Anatomical Region Laterality Modality Other 11/10/2024 11:1 4 AM EDT Addenda Addendum by Mitul Moya MD on 11/10/2024 4:35 PM EDT 1 [facility] Heart Station [address] [facility] [place] [address] [phone] (fax) Lexiscan Stress Myocardial Perfusion Imaging- [facility] Name: JUAN GARCIA Study Date: 11/10/2024 11:14 AM B/P: / HR: Date of : 1990 Location: [facility] Height: 65 in. Age: 34 year(s) [...] Lexiscan Exercise Time: 03:02 Device: Treadmill HR [place] Used: 21.00 % HR Recovery: 2 bpm Frequent VE: 1 VE/min Resolution: Persisted Max HR: 98 bpm Target HR: 157 bpm Achieved: No Resting HR: 68 bpm Max Predicted HR: 185 bpm Achv. of Max Predicted: 52 % BP Max: 105/71 BP at Rest: 105/71 Max RPP: 61115 mmHg*bpm Max ST Lead: III Max ST Phase: Infusion Stage No. in Phase: [address] Stage: INFUS2:[address] Amplitude: -0.[address] [place]: -0.670 mV/s Max ST Time in Phase: [...] 1.00 mets 67 bpm 105/71 0.250 mm [id number] 00:30 1.00 mets 90 bpm 102/70 0.400 [...] 4 - Aneurysmal Procedure Staff Reading Group: [facility] Referring Physician: BRITT ALAS [employer] Tutor: [place] Boilermaker Fitter: Lauren Sanchez Ordering Physician: SEBASTIAN PEÑA Advanced Practitioner: CRISTINA Gbison Nurse: Evelyne Abrams Narrative 11/10/2024 4:35 PM EDT 1 1 [facility] Heart Station [address] [place] [address] [phone] (fax) Lexiscan Stress Myocardial Perfusion Imaging- [facility] Name: JUAN GARCIA Study Date: 11/10/2024 11:14 AM B/P: / HR: Date of : 1990 Location: [facility] Height: 65 in. Age: 34 year(s) [...] Lexiscan Exercise Time: 03:02 Device: Treadmill HR [place] Used: 21.00 % HR Recovery: 2 bpm Frequent VE: 1 VE/min Resolution: Persisted Max HR: 98 bpm Target HR: 157 bpm Achieved: No Resting HR: 68 bpm Max Predicted HR: 185 bpm Achv. of Max Predicted: 52 % BP Max: 105/71 BP at Rest: 105/71 Max RPP: 08855 mmHg*bpm Max ST Lead: III Max ST Phase: Infusion Stage No. in Phase: [address] Stage: INFUS2:[address] Amplitude: -0.[address] [place]: -0.670 mV/s Max ST Time in Phase: [...] 1.00 mets 67 bpm 105/71 0.250 mm [id number] 00:30 1.00 mets 90 bpm 102/70 0.400 [...] 4 - Aneurysmal Procedure Staff Reading Group: [facility] Referring Physician: BRITT ALAS [employer] Tutor: [place] Boilermaker Fitter: Lauren Sanchez Ordering Physician: SEBASTIAN PEÑA Advanced Practitioner: CRISTINA Gibson Nurse: Evelyne Abrams Resting Perfusion Procedure Note Mitul Moya MD - 11/10/2024 1 1 [facility] Heart Station [address] [id number] [phone] (fax) Lexiscan Stress Myocardial Perfusion Imaging- [facility] Name: JUAN GARCIA Study Date: 11/10/2024 11:14 AM B/P: / HR: Date of : 1990 Location: [facility] Height: 65 in. Age: 34 year(s) [...] Lexiscan Exercise Time: 03:02 Device: Treadmill HR [place] Used: 21.00 % HR Recovery: 2 bpm Frequent VE: 1 VE/min Resolution: Persisted Max HR: 98 bpm Target HR: 157 bpm Achieved: No Resting HR: 68 bpm Max Predicted HR: 185 bpm Achv. of Max Predicted: 52 % BP Max: 105/71 BP at Rest: 105/71 Max RPP: 35492 mmHg*bpm Max ST Lead: III Max ST Phase: Infusion Stage No. in Phase: [address] Stage: INFUS2:[address] Amplitude: -0.[address] [place]: -0.670 mV/s Max ST Time in Phase: [...] 1.00 mets 67 bpm 105/71 0.250 mm [id number] 00:30 1.00 mets 90 bpm 102/70 0.400 [...] 4 - Aneurysmal Procedure Staff Reading Group: [facility] Referring Physician: BRITT ALAS [employer] Tutor: [place] Boilermaker Fitter: Lauren Sanchez Ordering Physician: SEBASTIAN PEÑA Advanced Practitioner: CRISTINA Gibson Nurse: Evelyne Abrams Resting Perfusion us Sebastian Peña MD CV STRESS PROCEDURES Edited Res ult - Final * Phosphorus (11/07/2024 4:50 AM EDT) Only the most recent of7 resultswithin the time period is included. Phosphorus 4.7 2.5 - 5.0 mg/dL 11/07/2024 5:52 AM EDT [facility] ([facility]) Blood Venous blood specimen / Unknown Existing Catheter / Unknown 11/07/2024 4:50 AM EDT 11/07/2024 5:24 AM EDT us Rosa Willoughby PA-C LAB BLOOD ORDERABLES Final R esult [facility] ([facility]) [address] [place] [address] * Calcium, ionized (11/07/2024 4:50 AM EDT) Only the most recent of5 resultswithin the time period is included. Calcium, Ion 1.16 1.15 - 1.33 mmol/L 11/07/2024 5:43 AM EDT [facility]ER[facility] Blood Venous blood specimen / Unknown Existing Catheter / Unknown 11/07/2024 4:50 AM EDT 11/07/2024 5:38 AM EDT us Eudarda Bravo PA-C LAB BLOOD ORDERABLES Final Resu lt [facility]ER[facility] [address] [place] [address], [place] * Vasc Us Lower Extremity Pseudoaneurysm [...] - 15.0 g/dL 11/05/2024 9:24 AM EDT [facility] ([facility]) Hematocrit 27.5(L) 36.0 - 45.0 % 11/05/2024 9:24 AM EDT [facility] ([facility]) Blood Venous blood specimen / Unknown Existing Catheter / Unknown 11/05/2024 9:01 AM EDT 11/05/2024 9:09 AM EDT us Tomasa Disla MD LAB BLOOD ORDERABLES Fin al Result [facility] ([facility]) [address] [place] [address] * Transfuse RBC (11/04/2024 4:57 PM EDT) Only the most recent of3 resultswithin the time period is included. us Tomasa Disla MD BLOOD TRANSFUSION ORDERA [...] - 215 s 11/03/2024 1:58 AM EDT [facility] RESPIRAT[facility] THERAPY HEPTEM C AMPLITUDE 5 MIN 46 33 - 51 mm 11/03/2024 1:58 AM EDT [facility] RESPIRATORY THERAPY HEPTEM C AMPLITUDE 10 MIN 56 44 - 61 mm 11/03/2024 1:58 AM EDT [facility] RESPIRATORY THERAPY HEPT[place] C AMPLITUDE 20 MIN 62 52 - 67 mm 11/03/2024 1:58 AM EDT [facility] RESPIRATORY THERAPY [place]PT[place] C MAXIMUM CLOT FIRMNESS 63 54 - 69 mm 11/03/2024 1:58 AM EDT [facility] RES[facility]IR[facility]ERAP[facility] Blood 11/03/2024 1:58 AM EDT 11/03/2024 1:58 AM EDT Ky Barbour MD LAB BLOOD ORDERABLES Final Re sult [facility] RESPIRAT[facility] THERAPY [address] [place] [address], [place] * FIBTEM C (11/03/2024 1:58 AM EDT) FIBTEM C AMPLITUDE 5 MIN 12 5 - 16 mm 11/03/2024 1:58 AM EDT [facility] RES[facility]IR[facility]ERAPY FIBTEM C AMPLITUDE 10 MIN 13 6 - 17 mm 11/03/2024 1:58 AM EDT [facility] RESPIR[facility]ORY THERAPY FIBTEM C AMPLITUDE 20 MIN 14 6 - 18 mm 11/03/2024 1:58 AM EDT [facility] RESPIR[facility]ORY THERAPY FIBTEM C MAXIMUM CLOT FIRMNESS 15 6 - 19 mm 11/03/2024 1:58 AM EDT [facility] Blood 11/03/2024 1:58 AM EDT 11/03/2024 1:58 AM EDT us Ky Barbour MD LAB BLOOD ORDERABLES Final Re sult Performing Organization Address [facility] Co de Phone Number [facility]ERAP[facility] [address] [place] [address], [place] * (ABNORMAL) EXTEM C (11/03/2024 1:58 AM EDT) EXTEM C CLOTTING TIME 51 51 - 73 s 11/03/2024 1:58 AM EDT [facility] RES[facility]ERAPY EXTEM C AMPLITUDE 5 MIN 52 33 - 52 mm 11/03/2024 1:58 AM EDT [facility] RESPIR[facility] THERAPY EXTEM C AMPLITUDE 10 MIN 61 45 - 62 mm 11/03/2024 1:58 AM EDT [facility] RESPIRATORY THERAPY EXTEM C AMPLITUDE 20 MIN 67 54 - 69 mm 11/03/2024 1:58 AM EDT [facility] RESPIRATORY THERAPY EXTEM C MAXIMUM CLOT FIRMNESS 68 57 - 72 mm 11/03/2024 1:58 AM EDT [facility] RESPIRATORY THERAPY EXTEM C LYSIS INDEX 60 MIN 96 94 - 100 % 11/03/2024 1:58 AM EDT [facility] RESPIRATORY THERAPY EXTEM C MAXIMUM LYSIS 10(H) 0 - 6 % 11/03/2024 1:58 AM EDT [facility] Comment:[place]^Preliminary Resul t Blood 11/03/2024 1:58 AM EDT 11/03/2024 1:58 AM EDT us Ky Barbour MD LAB BLOOD ORDERABLES Final Re sult Performing Organization Address [facility] Co de Phone Number [facility]ERAP[facility] [address] [place] [address], [place] * (ABNORMAL) INTEM C (11/03/2024 1:58 AM EDT) INTEM C CLOTTING TIME 169 139 - 205 s 11/03/2024 1:58 AM EDT [facility] RES[facility]IRATORY THERAPY INTEM C AMPLITUDE 5 MIN 48 36 - 54 mm 11/03/2024 1:58 AM EDT [facility] RES[facility]IR[facility] THERAPY INTEM C AMPLITUDE 10 MIN 57 46 - 63 mm 11/03/2024 1:58 AM EDT [facility] RESPIRATORY THERAPY INTEM C AMPLITUDE 20 MIN 63 53 - 68 mm 11/03/2024 1:58 AM EDT [facility] RESPIRATORY THERAPY INTEM C MAXIMUM CLOT FIRMNESS 63 55 - 70 mm 11/03/2024 1:58 AM EDT [facility] RESPIRATORY THERAPY INTEM C LYSIS INDEX 60 MIN 95 93 - 100 % 11/03/2024 1:58 AM EDT [facility] RESPIRATORY THERAPY INTEM C MAXIMUM LYSIS 12(H) 0 - 7 % 11/03/2024 1:58 AM EDT [facility] Comment:[place]^Preliminary Resul t Blood 11/03/2024 1:58 AM EDT 11/03/2024 1:58 AM EDT us Ky Barbour MD LAB BLOOD ORDERABLES Final Re sult [facility] RES[facility] THERAPY [address] [place] [address], [place] * (ABNORMAL) Protime-INR (11/03/2024 12:07 AM EDT) Only the most recent of2 resultswithin the time period is included. Protime 14.9(H) 12.3 - 14.8 Seconds 11/03/2024 12:53 AM EDT [facility] ([facility]) INR 1.17(H) 0.90 - 1.10 11/03/2024 12:53 AM EDT [facility] ([facility]) Comment: ACCCP RECOMMENDED [...] ORDERABLES Final Resu lt Performing Organization Address City/[facility]/ZIP Co de Phone Number [facility] [address] [place] [address] * Fibrinogen (11/03/2024 12:07 AM EDT) Fibrinogen 328 150 - 425 mg/dL 11/03/2024 12:53 AM EDT [facility] ([facility]) Blood Venous blood specimen / Unknown Existing Catheter / Unknown 11/03/2024 12:07 AM EDT 11/03/2024 12:27 AM EDT Jose Angel Fox MD LAB BLOOD ORDERABLES Final Resu lt Performing Organization Address City/[facility]/ZIP Co de Phone Number [facility] [address] [place] [address] * [place] AN ELECTIVE ENDOTRACHEAL AIRWAY (11/02/2024 8:56 PM EDT) Narrative Tarik Mayers CAA - 11/02/2024 8:56 PM EDT [place] Nair 11/02/2024 9:06 PM Airway Date/Time: 11/02/2024 8:56 PM Reason: elective Airway not difficult General Information and Staff Patient location during procedure: [place] Anesthesiologist: David Reyes MD Resident/THOMAS/[place]: [place] Nair Performed: resident/EDUCATION LIAISON/CAA Patient Condition Indications for airway management: anesthesia [...] the time period is included. PRODUCT CODE [id number] [facility] Unit Number [id number] [facility] Unit ABO O [facility] Unit Rh POS [facility] Crossmatch Interpretation COMP [facility] Dispense Status TR [facility] Blood Expiration Date [facility] Product Blood Type 5100 [facility] Unit Volume 300 ML [facility] Other 11/02/2024 8:05 PM EDT us Tomasa Disla MD BLOOD BANK PRODUCT ORDER JIN Final Result [facility] * Type and screen (11/02/2024 8:02 PM EDT) ABO Grouping O 11/02/2024 8:42 PM EDT [facility] Rh Type POS 11/02/2024 8:42 PM EDT [facility] Ab Scrn NEG 11/02/2024 8:42 PM EDT [facility] Blood Venous blood specimen / Unknown Existing Catheter / Unknown 11/02/2024 8:02 PM EDT 11/02/2024 8:02 PM EDT Wali Collins MD LAB BLOOD BANK TEST ORDERA BLES Final Result Performing Organization Address City/[facility]/ZIP Co de Phone Number [facility] * Red Top (11/02/2024 8:00 PM EDT) Extra Tube Hold for add-ons. 11/02/2024 10:02 PM EDT [facility] ([facility]) Comment:Auto resulted. Blood Venous blood specimen / Unknown 11/02/2024 8:00 PM EDT 11/02/2024 8:19 PM EDT Ky Barbour MD LAB BLOOD ORDERABLES Final Re sult Performing Organization Address [facility] Co de Phone Number [facility] [address] [place] [address] * (ABNORMAL) Activated clotting time (11/02/2024 4:43 PM EDT) Only the most recent of7 resultswithin the time period is included. Activated Clotting Time 176(H) 82 - 152 s 11/02/2024 5:54 PM EDT [facility] ([facility]) Blood Venous blood specimen / Unknown 11/02/2024 4:43 PM EDT 11/02/2024 5:54 PM EDT Ky Barbour MD LAB POINT OF CARE TE ST DOCKED DEVICE UNSOLICITED RESULTS Final Result Performing Organization Address City/[facility] Co de Phone Number [facility] [address] [place] [address] * (ABNORMAL) POCT activated clotting time manually [...] infiltrated over the right femoral artery. A 6-Peruvian sheath was placed in right femoral artery. Coronary angiography was performed with a JL4 and then repeated after IC nitroglycerin 50 mcg x 2. At this time, it was apparent that the LAD had a moderate stenosis and IVUS and iFR were performed. Heparin anticoagulation was used for this procedure. ACT was maintained at >250 seconds. A 6 Peruvian xb3 was engaged to the [place]. I [...] Green Top (11/02/2024 6:15 AM EDT) Pathologist [facility] Extra Tube Hold for add-ons. 11/02/2024 8:01 AM EDT [facility] ([facility]) Comment:Auto resulted. Blood Venous blood specimen / Unknown Existing Catheter / Unknown 11/02/2024 6:15 AM EDT 11/02/2024 6:38 AM EDT us Ky Barbour MD LAB BLOOD ORDERABLES Final Re sult [facility] ([facility]) [address] [place] [address] * (ABNORMAL) POCT activated clotting time docked device (11/01/2024 4:33 PM EDT) Activated Clotting Time POC 160(A) 82 - 152 sec [facility] ([facility]) Blood 11/01/2024 4:33 PM EDT us Ky Barbour MD LAB POINT OF CARE TEST DOCKED DEVICE ORDERABLES Final Result [facility] ([facility]) [address] [place] [address] * CORONARY ANGIOGRAPHY, ULTRASOUND - CORONARY (11/01/2024 [...] on TPN presents a direct admission from [facility] with chief complaint of chest pain. [...] infiltrated over the right femoral artery. A 5-Peruvian Terumo sheath was placed in right femoral [...] was maintained at >250 seconds. A 5 Peruvian Cordis XB 3.0 guide was engaged to the left main. I decided to proceed with IVUS. I then advanced a Runthrough wire to the distal left anterior descending. Next, I advanced a Ruby [employer] Revolver IVUS catheter. IVUS imaging was performed and [...] - 0.7 IU/mL 11/01/2024 6:37 AM EDT [facility] ([facility]) Comment:Rivaroxaban and Apix aban will interfere with the anti Xa assay used to monitor UFH and LMWH. Blood Blood sample taken from central line / Unknown Existing Catheter / Unknown 11/01/2024 6:04 AM EDT 11/01/2024 6:15 AM EDT Ky Barbour MD LAB BLOOD ORDERABLES Final Re sult [facility] ([facility]) [address] [place] [address] * (ABNORMAL) Toxicology Screen, Urine (11/01/2024 2:12 AM EDT) Barbiturates Negative Negative 11/01/2024 2:57 AM EDT [facility] ([facility]) Benzodiazepines Positive(A) Negative 11/02/19 2:57 AM EDT [facility] ([facility]) Propoxyphene Negative Negative 11/01/2024 2:57 AM EDT [facility] ([facility]) Methadone Negative Negative 11/01/2024 2:57 AM EDT [facility] ([facility]) Tricyclics Negative Negative 11/01/2024 2:57 AM EDT [facility] ([facility]) Phencyclidine Negative Negative 11/01/2024 2:57 AM EDT [facility] ([facility]) Opiates Positive(A) Negative 11/01/2024 2:57 AM EDT [facility] ([facility]) Cocaine Negative Negative 11/01/2024 2:57 AM EDT [facility] ([facility]) Amphetamines/Metha mphetamine Negative Negative 11/01/2024 2:57 AM EDT [facility] ([facility]) Cannabinoid Negative Negative 11/01/2024 2:57 AM EDT [facility] ([facility]) Urine Urine specimen obtained by clean catch procedure / Unknown Non-blood Collection / Unknown 11/01/2024 2:12 AM EDT 11/01/2024 2:18 AM EDT Narrative [facility] ([facility]) - 11/01/2024 2:57 AM EDT Unconfirmed screening results should only be used for medical purposes. us Ky Barbour MD LAB URINE ORDERABLES Final Re sult [facility] ([facility]) [address] [place] [address] * CORONARY ANGIOGRAPHY, LEFT HEART CATH (10/31/2024 [...] informed consent. she was brought to the wood preserving plant laborer in a fasting state. The left wrist area was prepped and draped in usual fashion. Micropuncture technique was used for access in the radial artery. A 5-Peruvian x 11 cm sheath was placed. Verapamil was given through the sheath, and heparin was administered intravenously. A 5 Peruvian JR4 diagnostic catheter was advanced and this [...] catheter was then downsized to a 4 Peruvian JR4 diagnostic catheter however this also was not able to engage the right coronary artery. Catheter was exchanged to a JR4 diagnostic catheter which could not engage the left coronary artery. Catheter was exchanged to a 4 Peruvian JL 3.5 diagnostic catheter which eventually was able to engage the left coronary artery. Angiography was performed in multiple views. Catheter was exchanged over the wire to a 4 Peruvian 3DRC catheter. Multiple attempts were made to [...] Study Details NSTEMI (non-ST elevated myocardial infarction) ([facility]) [I21.4] us Ky Barbour MD CV CARDIAC CATH PROCEDURES Fi nal Result * LIMITED ECHO (TTE) W/ COLOR FLOW AND IMAGING AGENT (10/31/2024 11:40 AM EDT) Anatomical Region Laterality Modality Other 10/31/2024 11:1 6 AM EDT Narrative 10/31/2024 12:44 PM EDT 1 [facility] Station [address] [place] [address] [phone] (fax) [facility] Name: JUAN GARCIA Study Date: 10/31/2024 11:16 AM B/P: 106 mmHg/67 mmHg HR: 70 bpm Date of : 1990 Location: [facility] Height: 66 in. Age: 34 [...] minimal pericardial effusion. Procedure Staff Reading Group: [facility] Vegetable Cook: DAVID Kearney, RDCS Ordering Physician: KY BARBOUR Wall Motion Scores -1 - hyperkinesia, 0 - not evaluated, 1 - normal, 2 - hypokinesia, 3 - akinesia, 4 - dyskinesia Procedure Note Mitul Moya MD - 10/31/2024 1 1 [facility] Heart Station [address] [facility] [place] [address] [phone] (fax) [facility] Name: JUAN GARCIA Study Date: 10/31/2024 11:16 AM B/P: 106 mmHg/67 mmHg HR: 70 bpm Date of : 1990 Location: [facility] Height: 66 in. Age: 34 [...] minimal pericardial effusion. Procedure Staff Reading Group: [facility] Vegetable Cook: DAVID Kearney, RDCS Ordering Physician: KY BARBOUR Wall Motion Scores -1 - hyperkinesia, 0 - not evaluated, 1 - normal, 2 - hypokinesia, 3 - akinesia, 4 - dyskinesia Ky Barbour MD CV ECHO PROCEDURES Final Resu lt * Hemoglobin A1c (10/31/2024 6:27 AM EDT) [facility] Hemoglobin A1C 4.5 4.0 - 6.0 % 10/31/2024 1:13 PM EDT [facility] ([facility]) Estimated Average Glucose 82 mg/dL 10/31/2024 1:13 PM EDT [facility] ([facility]) Blood Blood sample taken from central line / Unknown Existing Catheter / Unknown 10/31/2024 6:27 AM EDT 10/31/2024 7:01 AM EDT Ky Barbour MD LAB BLOOD ORDERABLES Final Re sult [facility] ([facility]) [address] [place] [address] * (ABNORMAL) Lipid panel (10/31/2024 6:27 AM EDT) Pathologist [facility] Triglycerides 84 <150 mg/dL 10/31/2024 9:31 AM EDT [facility] ([facility]) Comment: TRIGLYCERIDE REFERENCE RANGE: 20 YEARS AND OLDER CARDIOVASCULAR RISK LESS THAN 150 mg/dL LOW RISK 150 TO 199 mg/dL BORDERLINE RISK 200 mg/dL AND GREATER HIGH RISK Cholesterol 116(L) 120 - 200 mg/dL 10/31/2024 9:31 AM EDT [facility] ([facility]) LDL Calculated 56 0 - 160 mg/dL 10/31/2024 9:31 AM EDT [facility] ([facility]) HDL 43 23 - 92 mg/dL 10/31/2024 9:31 AM EDT [facility] ([facility]) Non HDL Cholesterol 73 10/31/2024 9:31 AM EDT [facility] ([facility]) Total VLDL-C 17 0 - 40 mg/dL 10/31/2024 9:31 AM EDT [facility] ([facility]) Cholesterol/HDL Ratio 2.7 mg/dL 10/31/2024 9:31 AM EDT [facility] ([facility]) Blood Blood sample taken from central line / Unknown Existing Catheter / Unknown 10/31/2024 6:27 AM EDT 10/31/2024 7:11 AM EDT us Ky Barbour MD LAB BLOOD ORDERABLES Final Re sult Performing Organization Address City/[facility]/ZIP Co de Phone Number [facility] [address] [place] [address] * TSH3 Reflex to FT4 (10/30/2024 7:11 PM EDT) TSH 3.46 0.34 - 5.60 mIU/L 10/30/2024 8:01 PM EDT [facility] ([facility]) Blood Venous blood specimen / Unknown Existing Catheter / Unknown 10/30/2024 7:11 PM EDT 10/30/2024 7:18 PM EDT us Debbie Luna CNP LAB BLOOD ORDERABLES Final Resu lt [facility] [address] [place] [address] * (ABNORMAL) aPTT - baseline (10/30/2024 7:11 PM EDT) aPTT 42.0(H) 25.0 - 35.0 Seconds 10/30/2024 7:48 PM EDT [facility] Comment:Clinical significanc e of the APTT is questionable in the presence of heparin. Blood Venous blood specimen / Unknown Existing Catheter / Unknown 10/30/2024 7:11 PM EDT 10/30/2024 7:18 PM EDT [employer] LAB BLOOD ORDERABLES Final Resu lt Performing Organization Address City/[facility]/ZIP Co de Phone Number [facility] ([facility]) [address] [place], [place] [id number] * B-type natriuretic peptide (10/30/2024 7:11 PM EDT) BNP 77 0 - 100 pg/mL 10/30/2024 7:49 PM EDT [facility] ([facility]) Blood Venous blood specimen / Unknown Existing Catheter / Unknown 10/30/2024 7:11 PM EDT 10/30/2024 7:18 PM EDT [facility] BLOOD ORDERABLES Final Resu lt Performing Organization Address City/[facility]/ZIP Co de Phone Number [facility] ([facility]) [address] [place], [place] [phone] from Last 3 Months Insurance [employer] [facility] Advance Directives * Full Code (Latest Code [...] 9:21 PM 08/20/2024 5:55 PM Care Teams Websphere Commerce Consultant Relationship Specialty Start Date End Date Britt Alas MD [address] [place] [address] PCP - General Family Medicine 08/17/24
--- OUTSIDE RECORDS SUMMARY | 2024-12-04 13:50 | XMS_ITS | Encounter Summary ---
Author Organization [facility] Address [address] [place] [address] Care Team Providers Care Director Of Customer Acquisition Name Role Phone Thomas Alas MD Primary Care Provider [phone] Encounter Details Date Type Department Care Team (Late st Contact Info) Description 12/01/2024 Orders Only [facility] Endoscopy [address] [place] [address] Muna Michael, RN Common bile duct dilation (Primary Dx) Social History Tobacco Use Types Packs/Day Years Used Date Smoking Tobacco: Never Smokeless Tobacco: Never Alcohol Use Standard Drinks/Week Comments Not Currently 0 (1 standard drink = 0.6 oz pur e alcohol) [facility] Utilities Answer Date Recorded In the past 12 months has e electric, gas, oil, or water Conject threatened to shut off services in your [...] any time in the past 12 m onths, were you homeless or living in a nursing home (including now)? No 11/15/2024 Hunger Vital Sign [...] Description 12/06/2024 11:20 AM EDT Office Visit [facility] [address] [place] [address] Wali Collins MD [address] [place] [address] 12/14/2024 9:00 AM EDT Appointment [facility] Endoscopy [address] [place] [address] Braxton Bellamy MD [address] [facility] [address] [facility] [place] [place] [address] 12/14/2024 10:30 AM EDT Appointment [facility] X-Ray Imaging [address] [place] [address] Scheduled Orders Name Type Priority Associated Diagnoses Orde r Schedule Fl in Endo Imaging Routine Common bile duct dilation Expected: 12/14/2024, Expires: 12/01/2025 documented as of this encounter Visit Diagnoses Diagnosis Common bile duct dilation- Primary documented in this encounter Care Teams Director Of Customer Acquisition Relationship Specialty Start Date End Date Thomas Alas MD [address] [facility] [place] [address] PCP - General Family Medicine 08/17/24 documented as of this encounter
--- OUTSIDE RECORDS SUMMARY | 2024-12-04 13:50 | XMS_ITS | Clinical Summary ---
Author Organization [facility] Address [address] [place] [address] Phone Care Team Providers Care Profiler Hand Name Role Phone Generic Provider, No Assigned [...] - 10/10/2024 11:59 PM EDT Hospital Encounter [facility] [address] [place] [address] Discharge Disposition: Home 10/09/2024 10:15 AM EDT Telemedicine [facility] [address] [place] [address] Sherry Magaña MD Median arcuate ligament syndrome (Primary Dx) Discharge Disposition: Home 10/06/2024 9:00 AM EDT Ancillary Procedure [facility] [address] [place] [address] Median arcuate ligament syndrome 09/18/2024 Orders Only [facility] [address] [place] [address] Crystal Monique RN Median arcuate ligament syndrome [...] from your doctor or pharmacy? Never 06/30/2023 [facility] Utilities [...] often do you attend chur ch or methodist services? More than 4 times per year 06/30/2023 Do you belong to any clubs o r organizations such as islam groups, unions, fraternal or athletic groups, or [...] Recorded Patient Health Questionnaire-2 Score 0 10/09/2024 [facility] [place] of Occupat ional Health - Occupational Stress [...] slept in a mcc (including now)? No 06/30/2023 AUDIT-C Answer Date [...] 06/29/2023 6:16 PM EDT Plan of Treatment Health Maintenance [...] 2024 , 11/16/2021, 01/01/2021, Additional history exists Diabetes Screening [...] this topic Medical Devices Implanted Type Area Modeling Manager Device Identifier Shelf Expiration Date Model / Serial / Lot Membrane, Seprafilm, 5 X 6 In - [id number] Implanted:Qty : 1 on 03/05/2023 by Sherry Magaña MD at [facility] Implant N/A: Abdomen [facility] [id number] 10/02/2023 [id number] / / [id number] Procedures Procedure Name Priority Date/Time Associated Diagnosis [...] or treatment purposes, not interpreted by Radiologists. Sherry Magaña MD IMG CT PROCEDURES Final Result IMAGING * Vascular US mesenteric artery duplex complete (10/06/2024 9:40 AM EDT) Anatomical Region Laterality Modality Abdomen Echocardiography 10/06/2024 9:13 AM EDT Narrative 10/06/2024 1:59 PM EDT [place] [id number] Vascular Lab Report VASC US MESENTERIC ARTERY DUPLEX COMPLETE Patient Name: JUAN Oneil Physician: [id number] Rivera MD Study Date: 10/06/2024 Ordering Provider: [id number] MAGAÑA MRN/PID: [id number] Fellow: Technologist: Leia Degroot RVT Date of /Age: 2 1990 Technologist 2: years Gender: F Admission Status: Outpatient Location [facility] Performed: 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 CPT Codes: 93706 Mesenteric Duplex scan ` CONCLUSIONS: Mesenteric: Superior [...] 61 cm/s KEELY Prox PSV 118 cm/s 29360 Ann Rivera MD Final Procedure Note Ann Rivera MD, MS - 10/06/[address] [address] Vascular Lab Report VASC US MESENTERIC ARTERY DUPLEX COMPLETE Patient Name: JUAN Oneil Physician: [id number] Viera MD Study Date: 10/06/2024 Ordering Provider: [id number] BARNETT MRN/PID: [id number] Fellow: Technologist: Leia Taylor Date of /Age: 2 1990 Technologist 2: years Gender: F [facility] Performed: 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 Blood Capillary blood specimen / Unknown 07/03/2023 7:17 AM EDT 07/03/2023 7:24 AM EDT Kina Ann MD LAB POINT OF CARE TE ST DOCKED DEVICE UNSOLICITED RESULTS Final Result [facility] [address] [place] [address] * (ABNORMAL) Renal Function Panel (07/02/2023 6:47 AM EDT) Pathologist [facility] Glucose 101(H) 65 - 99 mg/dL 07/02/2023 7:53 AM EDT [facility] Sodium 137 133 - 145 mmol/L 07/02/2023 7:53 AM EDT [facility] Potassium 3.9 3.4 - 5.1 mmol/L 07/02/2023 7:53 AM EDT [facility] Chloride 103 97 - 107 mmol/L 07/02/2023 7:53 AM EDT [facility] Bicarbonate 23(L) 24 - 31 mmol/L 07/02/2023 7:53 AM EDT [facility] Urea Nitrogen 13 8 - 25 mg/dL 07/02/2023 7:53 AM EDT [facility] Creatinine 0.70 0.40 - 1.60 mg/dL 07/02/2023 7:53 AM EDT [facility] eGFR >90 >60 mL/min/1.7 3m*2 07/02/2023 7:53 AM T [facility] Comment: Calculations of estimated GFR are performed using the 2020 CKD-EPI Study Refit equation without the race variable for the IDMS-Traceable creatinine methods. https://jasn.asnjournals.org/content/early//ASN.0085228741 Calcium 8.6 8.5 - 10.4 mg/dL 07/02/2023 7:53 AM EDT [facility] Phosphorus 4.0 2.5 - 4.5 mg/dL 07/02/2023 7:53 AM T [facility] Albumin 4.0 3.5 - 5.0 g/dL 07/02/2023 7:53 AM T [facility] Anion Gap 11 <=19 mmol/L 07/02/2023 7:53 AM T [facility] Blood Venous blood specimen / Unknown 07/02/2023 6:47 AM EDT 07/02/2023 6:58 AM EDT Loreto Doty MD LAB BLOOD ORDERABLES F inal Result [facility] [address] [place] [address] from Last 3 Months or Most Recently Relevant to Health Maintenance Insurance MEDICAID MEDICAID Advance Directives For more information, please contact: [phone] (Available ) * Full Code (Latest Code Status on File) Date Activated Date Inactivated Comments 03/05/2023 2:37 PM Question Answer Comments Plan of Care: Code Status Discussion Completed Decision Maker: Patient Care Teams Profiler Hand Relationship Specialty Start Date End Date Generic Provider, No Assigned P[place], [place] [address] PCP - General Ship Fitter 06/29/23
--- OUTSIDE RECORDS SUMMARY | 2024-12-04 13:50 | XMS_ITS | Encounter Summary ---
Author Organization [facility] [employer] Address [address] [place] [address] Care Team Providers Care Abstract Clerk Name Role Phone Thomas Alas MD Primary Care Provider [phone] Reason for Visit * Reason Onset Date Comments Appointment 04/18/2024 Encounter Details Date Type Department Care Team (Late st Contact Info) Description 04/18/2024 Telephone Central Scheduling [address] [place] [address] Joanne Shi Appointment Social History Tobacco [...] until 2025. The patient also follows with [facility]. I would recommend maintaining follow [...] Please advise Preferred call back time: Anytime [phone] Will warm connect patient to nursing line [...] on filedocumented in this encounter Care Teams Abstract Clerk Relationship Specialty Start Date End Date Thomas Alas MD PCP - General 12/30/23 documented as of this encounter
--- OUTSIDE RECORDS SUMMARY | 2024-12-04 13:50 | XMS_ITS | Encounter Summary ---
Author Organization [facility] Address [address] [place] [address] Care Team Providers Care Hassock Maker Name Role Phone Anna Mendez [employer]AL AIRCREW[employer] HELICOPTER Unavailable Unallocated, Noms Provider Primary Care Provi pako Thomas Alas MD Primary Care Provider [phone] Encounter Details Date Type Department Care Team (Late st Contact Info) Description 10/29/2023 Abstract [facility] [address] [place] [address] Vero Medeiros LPN [address] [place] [id number] Social History Tobacco Use Types Packs/Day Years [...] on filedocumented in this encounter Care Teams Hassock Maker Relationship Specialty Start Date End Date Unallocated, Noms [place] [address] PCP - General 07/23/22 12/13/23 Thomas Alas MD [address] [place] [address] PCP - General Family Medicine 12/14/23 Anna Mendez NP [address] [place] [address] Referring Physician Family Medicine 07/23/22 documented as of this encounter
--- OUTSIDE RECORDS SUMMARY | 2024-12-04 13:50 | XMS_ITS | Encounter Summary ---
Author Organization [facility] Address [address] [address] Care Team Providers Care Cobol Programmer Name Role Phone Thomas Alas MD Primary Care Provider [phone] Encounter Details Date Type Department Care Team (Latest Contact Info) Description 12/04/2024 Travel Social History Tobacco Use Types Packs/Day Years Used Date Smoking Tobacco: Never Smokeless Tobacco: Never Alcohol Use Standard Drinks/Week Comments Not Currently 0 (1 standard drink = 0.6 oz pur e alcohol) [facility] Utilities Answer Date Recorded In the [...] any time in the past 12 m [facility], were you homeless or living in a mcc (including now)? No 11/15/2024 Hunger Vital Sign [...] Description 12/06/2024 11:20 AM EDT Office Visit [facility] [address] [place] [address] Wali Collins MD [address] [place] [address] 12/14/2024 9:00 AM EDT Appointment [facility] Endoscopy [address] [place] [address] Braxton Bellamy MD [address] [facility] [address] [facility] [place] [address] 12/14/2024 10:30 AM EDT Appointment [facility] X-Ray Imaging [address] [place] [address] documented as of this encounter Visit Diagnoses Not on filedocumented in this encounter Care Teams Cobol Programmer Relationship Specialty Start Date End Date Thomas Alas MD [address] [facility] [address] [address] PCP - General Family Medicine 08/17/24 documented as of this encounter
--- OUTSIDE RECORDS SUMMARY | 2024-12-04 13:50 | XMS_ITS | Clinical Summary ---
Author Organization [employer] Address [address] [place] [address] Care Team Providers Care Beverage Host Name Role Phone Thomas Alas MD Primary Care Provider [phone] Allergies Active Allergy Reactions Criticality Noted Date [...] age to complete this topic Insurance [facility] [facility] Care Teams Beverage Host Relationship Specialty Start Date End Date Thomas Alas MD PCP - General 12/30/23
--- OUTSIDE RECORDS SUMMARY | 2024-12-04 13:50 | XMS_ITS | Clinical Summary ---
Author Organization [facility] Address [address] [place] [address] Care Team Providers Care Major Gifts Director Name Role Phone Anna Mendez SENIOR PARTNER Unavailable Thomas Alas MD Primary Care Provider [phone] Allergies Active Allergy Reactions Criticality Noted Date [...] 06/09/19 23 Active Lancets (OneTouch Delica Plus [id number]) misc USE TO TEST BLOOD SUGAR TWICE [...] 09/13/2017 39 weeks gestation of ([facility]) 2016 Polycystic ovaries 10/02/2013 Asthma [...] Paternal Grandfather Elan Artino Diabetes Paternal Grandmother Glayds Artino Heart disease Paternal Grandmother Gladys Artino Hypertension Paternal Grandmother Gladys Artino Thyroid disease Paternal Grandmother Gladys Artino Diabetes Sibling Hypertension Sibling No Known Problems Son Relation Name Status Comments Daughter 1 Alive Daughter 2 Alive Father Adán Artino Alive Maternal Grandfather Cedrick Kraus Maternal Grandmother Erica [place] Mother Jessica Artino Alive Paternal Grandfather Elan [...] 12/14/2023 2:11 PM EDT Plan of Treatment Not on file Insurance [employer] Care Teams Major Gifts Director Relationship Specialty Start Date End Date Thomas Alas MD [address] [place] [address] PCP - General Family Medicine 12/14/23 Anna Mendez NP [address] [place] [address] Referring Physician Family Medicine 07/23/22
--- OUTSIDE RECORDS SUMMARY | 2024-12-04 13:50 | XMS_ITS | Encounter Summary ---
Author Organization [facility] Address [address] [place] [address] Care Team Providers Care Cut Off Saw Tender Metal Name Role Phone Thomas Alas MD Primary Care Provider [phone] Encounter Details Date Type Department Care Team (Latest Contact Info) Description 11/26/2024 Travel Social History Tobacco Use Types Packs/Day Years Used Date Smoking Tobacco: Never Smokeless Tobacco: Never Alcohol Use Standard Drinks/Week Comments Not Currently 0 (1 standard drink = 0.6 oz pur e alcohol) [facility] Utilities Answer Date Recorded In the [...] in a senior care (including now)? No 11/15/2024 Hunger Vital Sign [...] Sensory Perceptions 4 11/26/2024 8:30 PM ED Andie Tinoco RN Moisture 4 11/26/2024 8:30 PM EDT [...] 9:33 PM EDT Mercedes Fletcher RN * [place] Fall Risk Interventions Question Answer Date of Assessment Author [place] Fall Risk Interventions Complete 025 7:34 PM [...] Progression Not changed 11/26/2024 8:30 PM E DT Andie Fletcher RN Pain Assessment 0-10 11/26/2024 8:30 PM EDT Andie Cota RN * Pain Score Answer Date of [...] Answer Date of Assessment Author Peripheral Vascular ([facility]) WD 11/26/2024 8:30 PM EDT Andie Fletcher RN * Musculoskeletal Question Answer Date of Assessment Author Musculoskeletal ([facility]) WD 11/26/2024 8:30 PM EDT Andie Fletcher RN * Psychosocial Question Answer Date of Assessment Author Psychosocial ([facility]) WD 11/26/2024 8:30 PM EDT Andie Fletcher [...] to level of care 11/26/2024 8:30 PM EDAndie Tinoco RN Sensory Perceptions 4 11/26/2024 8:30 PM ED Andie Tinoco RN Moisture 4 11/26/2024 8:30 PM EDT [...] Question Answer Date of Assessment Author Cardiac (WD) WD 11/26/2024 8:[address]ie [address], RN * Respiratory Question Answer Date of Assessment Author Respiratory ([facility]) [facility] 11/26/2024 8:30 PM EDT Andie Fletcher RN * Charting Type Question Answer Date of Assessment Author Charting Type Shift assessment 11/26/2024 8:30 PM EDT Andie Fletcher RN * Patient's Stated Pain Goal Answer Date of Assessment Author No pain 11/26/2024 9:33 PM EDT Mercedes Fletcher RN * Genitourinary Question Answer Date of Assessment Author Genitourinary (WD) X 11/26/2024 8:30 PM ED Andie Tinoco RN * Neurological Question Answer Date of Assessment Author Neuro ([facility]) WDL 11/26/2024 8:30 PM EDT Andie Marino RN * [place] Fall Risk Interventions Question Answer Date of Assessment Author [place] [facility] Risk Interventions Complete 025 7:34 PM EDT Roseline Matos RN * Kris Coma Scale Question Answer [...] Pain Descriptors Pressure;Aching 11/26/2024 8:30 PM ED Andie Tinoco RN Pain Onset Ongoing 11/26/2024 8:30 PM [...] Integumentary (WDL) X 11/26/2024 8:30 PM ED Andie Tinoco RN * Pain Score Answer Date of Assessment Author 8 11/26/2024 9:33 PM EDT Mercedes Fletcher RN * [place] Suicide Severity Rating Scale Question Answer Date [...] Andie Fletcher RN documented in this encounter Plan of Treatment Upcoming Encounters Date Type Department Care Team (Late st Contact Info) Description 12/06/2024 11:20 AM EDT Office Visit [facility] [address] [place] [address] Wali Collins MD [address] [place] [address] 12/14/2024 9:00 AM EDT Appointment [facility] Endoscopy [address] [place] [address] Braxton Bellamy MD [address] [facility] [place] [address] 12/14/2024 10:30 AM EDT Appointment [facility] X-Ray Imaging [address] [place] [phone] documented as of this encounter Visit Diagnoses Not on filedocumented in this encounter Care Teams Cut Off Saw Tender Metal Relationship Specialty Start Date End Date Thomas Alas MD [address] [place] [address] PCP - General Family Medicine 08/17/24 documented as of this encounter
--- OUTSIDE RECORDS SUMMARY | 2024-12-04 13:50 | XMS_ITS | Clinical Summary ---
Author Organization [facility] Address [address], [address] [place] [address] Care Team Providers Care Chemical 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 Name Role Phone Thomas Alas MD Primary Care Provider [phone] Allergies Active Allergy Reactions Criticality Noted Date Comments Adhesive Tape Other (See Comments) Medium 02/07/2020 Sensitive to certain adhesive tapes. Redness and itchy. Codeine Nausea And Vomiting Low 11/23/2024 Nsaids Other (See Comments) 01/29/2022 Gastric bypass S/p RYGB S/p RYGB Oxycodone-Acetaminoph en Anaphylaxis High 12/14/2022 Wound Dressing Adhesive Other [...] Take 1 tablet by mouth daily Active methocarbamol (ROBAXIN) 500 MG tablet Take 1.5 tablets by mouth 4 times daily Active metFORMIN, OSM, (FORTAMET) 500 MG extended release tablet Take 1 tablet by mouth 2 times daily (with meals) Active fentaNYL (DURAGESIC) 12 MCG/HR APPLY TO SKIN TRANSDERMALLY EVERY 3 DAYS WITH A 25MCG PATCH 11/07/19 25 Active phenazopyridine (PYRIDIUM) 200 MG tablet Take 1 tablet by mouth 3 times daily as needed for Pain (bladder spasm/pain) 6 tablet 12/03/19 25 025 Active metoclopramide (REGLAN) 10 MG tablet Take 1 tablet by mouth 2 times daily as needed 03/24/19 24 025 cephALEXin (KEFLEX) 500 MG capsule Take 1 capsule by mouth 3 times daily for 7 days 21 capsule 11/24/19 025 Active Problems Problem Noted Date Diagnosed Date Intractable nausea and vomiting 11/28/2022 Encounters Date Type Department Care Team Description 12/02/2024 10:18 AM EDT - 12/02/2024 12:37 PM EDT Emergency [facility] Emergency Department [address] [place], [place] [id number] Gross hematuria (Primary Dx); Painful bladder spasm; Right flank pain Discharge Disposition: Home or Self Care 12/02/2024 Travel 11/23/2024 5:32 PM EDT - 11/23/2024 8:26 PM EDT Emergency [facility] Emergency Department [address] [place] [address] [phone] Shelley Sanz DO Acute urinary retention (Primary Dx); Acute UTI Discharge Disposition: Home or Self Care 11/23/2024 Travel 11/15/2024 1:15 PM EDT - 11/15/2024 6:50 PM EDT [facility] Emergency Department [address] [place] [address] [phone] Jory Hurd DO Chest pain, unspecified type (Primary Dx) Discharge Disposition: Another [facility] 11/15/2024 Travel 11/08/2024 12:31 PM EDT - 11/09/2024 8:42 AM EDT Emergency [facility] Emergency Department [address] [place] [address] Oc Graham MD Chest pain, unspecified type (Primary Dx) Discharge Disposition: Another Acute [facility] Hospital 11/08/2024 Travel from Last 3 Months Social [...] Mass Index 29.05 12/02/2024 10:14 AM EDT Plan of Treatment Health Maintenance [...] Procedure Name Priority Date/Time Associated Diagnosis Comments MICROSCOPIC URINALYSIS Routine 11:54 AM EDT URINALYSIS WITH REFLEX TO CULTURE STAT 12/02/2024 11:[address] ABDOMEN PELVIS WO CONTRAST STAT 12/02/2024 11:30 AM EDT MAGNESIUM STAT 12/02/2024 11:12 AM EDT LACTIC ACID STAT 12/02/2024 11:12 AM EDT CBC WITH AUTO DIFFERENTIAL STAT 12/02/2024 11:12 AM EDT COMPREHENSIVE METABOLIC PANEL STAT 12/02/2024 11:12 AM EDT EKG 12-LEAD Routine 11/23/2024 6:44 PM EDT TROPONIN STAT 11/23/2024 6:16 PM EDT BASIC METABOLIC PANEL STAT 11/23/2024 6:16 PM EDT CBC WITH AUTO DIFFERENTIAL STAT 11/23/2024 6:16 PM EDT MICROSCOPIC URINALYSIS Routine 5:40 PM EDT URINALYSIS WITH REFLEX TO CULTURE STAT 11/23/2024 5:40 PM EDT TROPONIN STAT 11/15/2024 2:35 PM EDT APTT [...] from Last 3 Months Results * (ABNORMAL) Urinalysis with Reflex to Culture (12/02/2024 11:54 AM EDT) Only the most recent of2 resultswithin the time period is included. Color, UA Red(A) Yellow 12/02/2024 11:54 AM T [facility] Turbidity UA Clear Clear 12/02/2024 11:54 AM [facility] Glucose, Ur NEGATIVE NEGATIVE mg/dL 12/02/2024 11:54 AM EDT [facility] Bilirubin, Urine NEGATIVE NEGATIVE 12/02/2024 11:54 AM EDT [facility] Ketones, Urine NEGATIVE NEGATIVE mg/dL 12/02/2024 11:54 AM [facility] Specific [place], UA 1.010 1.010 - 1.020 12/02/2024 11:54 AM [facility] Urine Hgb 3+(A) NEGATIVE 12/02/2024 11:54 AM [facility] pH, Urine 7.0 5.0 - 9.0 12/02/2024 11:54 AM T [facility] Protein, UA TRACE(A) NEGATIVE mg/dL 12/02/2024 11:54 AM [facility] Urobilinogen, Urine Normal 0.0 - 1.0 EU/dL 12/02/2024 11:54 AM [facility] Nitrite, Urine NEGATIVE NEGATIVE 12/02/2024 11:54 AM [facility] Leukocyte Esterase, Urine NEGATIVE NEGATIVE 12/02/2024 11:54 AM [facility] URINE SPECIMEN / Unknown 12/02/2024 11:54 AM EDT 12/02/2024 11:57 AM EDT Jose Angel Perez PA-C URINE ORDERABLES Final Result [facility] [address] [phone] * Microscopic Urinalysis (12/02/2024 11:54 AM EDT) Only the most recent of2 resultswithin the time period is included. WBC, UA 2 TO 5 0 - 5 /HPF 12/02/2024 11:54 AM EDT [facility] RBC, UA 20 TO 50 0 - 2 /HPF 12/02/2024 11:54 AM EDT [facility] Epithelial Cells, UA 0 TO 2 0 - 25 /HPF 12/02/2024 11:54 AM EDT [facility] 12/02/2024 11:5 4 AM EDT 12/02/2024 11:57 AM EDT Jose Angel Perez PA-C URINE ORDERABLES Final Result [facility] [address] [phone] * CT ABDOMEN PELVIS WO CONTRAST Additional [...] No hydronephrosis. No perinephric or periureteral stranding. Costello catheter is present. GI AND BOWEL: Status [...] ureters. No hydronephrosis. No perinephric orperiureteral stranding. Costello catheter is present. GI AND BOWEL: Status [...] abdomen or pelvis. Jose Angel Perez PA-C [facility] CT ORDERABLES Final Result * (ABNORMAL) CBC with Auto Differential (12/02/2024 11:12 AM EDT) Only the most recent of4 resultswithin the time period is included. WBC 4.4 3.5 - 11.3 k/uL 12/02/2024 11:12 AM [facility] RBC 3.47(L) 3.95 - 5.11 m/uL 12/02/2024 11:12 AM [facility] Hemoglobin 10.1(L) 11.9 - 15.1 g/dL 12/02/2024 11:12 AM [facility] Hematocrit 30.5(L) 36.3 - 47.1 % 12/02/2024 11:12 AM [facility] MCV 87.9 82.6 - 102.9 fL 12/02/2024 11:12 AM [facility] MCH 29.1 25.2 - 33.5 pg 12/02/2024 11:12 AM [facility] MCHC 33.1 28.4 - 34.8 g/dL 12/02/2024 11:12 AM [facility] RDW 13.8 11.8 - 14.4 % 12/02/2024 11:12 AM [facility] Platelets 198 138 - 453 k/uL 12/02/2024 11:12 AM [facility] MPV 10.9 8.1 - 13.5 fL 12/02/2024 11:12 AM [facility] NRBC Automated 0.0 0.0 per 100 WBC 12/02/2024 11:12 AM [facility] Neutrophils % 71(H) 36 - 65 % 12/02/2024 11:12 AM [facility] Lymphocytes % 22(L) 24 - 43 % 12/02/2024 11:12 AM [facility] Monocytes % 5 3 - 12 % 12/02/2024 11:12 AM [facility] Eosinophils % 1 1 - 4 % 12/02/2024 11:12 AM [facility] Basophils % 1 0 - 2 % 12/02/2024 11:12 AM [facility] Immature Granulocytes % 0 0 % 12/02/2024 11:12 AM [facility] Neutrophils Absolute 3.13 1.50 - 8.10 k/uL 12/02/2024 11:12 AM EDT [facility] Lymphocytes Absolute 0.95(L) 1.10 - 3.70 k/uL 12/02/2024 11:12 AM EDT [facility] Monocytes Absolute 0.23 0.10 - 1.20 k/uL 12/02/2024 11:12 AM EDT [facility] Eosinophils Absolute 0.05 0.00 - 0.44 k/uL 12/02/2024 11:12 AM EDT [facility] Basophils Absolute 0.03 0.00 - 0.20 k/uL 12/02/2024 11:12 AM EDT [facility] Immature Granulocytes Absolute <0.03 0.00 - 0.30 k/uL 12/02/2024 11:12 AM EDT [facility] Blood BLOOD SPECIMEN / Unknown 12/02/2024 11:12 AM EDT 12/02/2024 11:14 AM EDT Jose Angel Perez PA-C HEMATOLOGY ORDERABLES Final Re sult [facility] [address] [place] [address] * Magnesium (12/02/2024 11:12 AM EDT) Magnesium 1.8 1.6 - 2.6 mg/dL 12/02/2024 11:12 AM EDT [facility] Blood BLOOD SPECIMEN / Unknown 12/02/2024 11:12 AM EDT 12/02/2024 11:14 AM EDT Jose Angel Perez PA-C CHEMISTRY ORDERABLES Final Res ult Performing Organization Address [facility]/ZIP Co de Phone Number [facility] [address] [place] [address] * Lactic Acid (12/02/2024 11:12 AM EDT) Lactic Acid 0.8 0.5 - 2.2 mmol/L 12/02/2024 11:12 AM T [facility] Blood BLOOD SPECIMEN / Unknown 12/02/2024 11:12 AM EDT 12/02/2024 11:14 AM EDT Jose Angel Perez PA-C CHEMISTRY ORDERABLES Final Res ult [facility] [address] [phone] * (ABNORMAL) CMP (12/02/2024 11:12 AM EDT) Sodium 139 136 - 145 mmol/L 12/02/2024 11:12 AM [facility] Potassium 3.9 3.7 - 5.3 mmol/L 12/02/2024 11:12 AM [facility] Chloride 107 98 - 107 mmol/L 12/02/2024 11:12 AM [facility] CO2 23 20 - 31 mmol/L 12/02/2024 11:12 AM [facility] Anion Gap 9 9 - 16 mmol/L 12/02/2024 11:12 AM [facility] Glucose 86 74 - 99 mg/dL 12/02/2024 11:12 AM [facility] BUN 7 6 - 20 mg/dL 12/02/2024 11:12 AM [facility] Creatinine 0.7 0.50 - 0.90 mg/dL 12/02/2024 11:12 AM [facility] Est, Glom Filt Rate >90 >60 mL/min/1.7 3m2 12/02/2024 11:12 AM [facility] Comment: These results are not [...] 9 - 20 12/02/2024 11:12 AM EDT [facility] Calcium 8.4(L) 8.6 - 10.4 mg/dL 12/02/2024 11:12 AM EDT [facility] Total Protein 6.0(L) 6.6 - 8.7 g/dL 12/02/2024 11:12 AM T [facility] Albumin 3.7 3.5 - 5.2 g/dL 12/02/2024 11:12 AM T [facility] Albumin/Globulin Ratio 1.6 1.0 - 2.5 12/02/2024 11:12 AM [facility] Total Bilirubin 0.3 0.00 - 1.20 mg/dL 12/02/2024 11:12 AM EDT [facility] Alkaline Phosphatase 66 35 - 104 U/L 12/02/2024 11:12 AM [facility] ALT 37(H) 10 - 35 U/L 12/02/2024 11:12 AM T [facility] AST 73(H) 10 - 35 U/L 12/02/2024 11:12 AM [facility] Blood BLOOD SPECIMEN / Unknown 12/02/2024 11:12 AM EDT 12/02/2024 11:14 AM EDT us Jose Angel Perez PA-C CHEMISTRY ORDERABLES Final Res ult [facility] [address] [phone] * EKG 12 Lead (11/23/2024 6:44 PM EDT) Only the most recent of4 resultswithin the time period is included. Pathologist [facility] Ventricular Rate 76 BPM [facility] RADIOLOG[facility] Atrial Rate 76 BPM [facility] RADI[facility]Y P-R Interval 158 ms [facility] QRS Duration 88 ms [facility] RAD[facility] Q-T Interval 432 ms [facility] QTc Calculation (Bazett) 486 ms [facility] RADIOLOGY P Gilman 74 degrees [facility] RADIOLOGY R Gilman 57 degrees [facility] RADIOLOGY T Gilman 49 degrees [facility] RADIOLOGY 11/23/2024 6:44 PM EDT Narrative [facility] - 11/23/2024 11:05 PM [...] Brad Good ([id number]) on 11/23/2024 11:05:14 PM Shelley Sanz DO ECG ORDERABLES Final Resul t [facility] * Troponin (11/23/2024 6:16 PM EDT) Only the most recent of5 resultswithin the time period is included. Troponin, High Sensitivity <6 0 - 14 ng/L 11/23/2024 6:16 PM EDT [facility] Comment:High Sensitivity Tro ponin values cannot be compared with other Troponin methodologies. Blood BLOOD SPECIMEN / Unknown 11/23/2024 6:16 PM EDT 11/23/2024 7:20 PM EDT Shelley Sanz DO CHEMISTRY ORDERABLES Final Result [facility] [address] [place] [address], [facility] [phone] * (ABNORMAL) Basic Metabolic Panel (11/23/2024 6:16 PM EDT) Only the most recent of2 resultswithin the time period is included. Sodium 138 136 - 145 mmol/L 11/23/2024 6:16 PM EDT [facility] Potassium 3.7 3.7 - 5.3 mmol/L 11/23/2024 6:16 PM EDT [facility] Chloride 106 98 - 107 mmol/L 11/23/2024 6:16 PM EDT [facility] CO2 23 20 - 31 mmol/L 11/23/2024 6:16 PM [facility] Anion Gap 9 9 - 16 mmol/L 11/23/2024 6:16 PM T [facility] Glucose 83 74 - 99 mg/dL 11/23/2024 6:16 PM T [facility] BUN 9 6 - 20 mg/dL 11/23/2024 6:16 PM [facility] Creatinine 0.8 0.50 - 0.90 mg/dL 11/23/2024 6:16 PM [facility] Est, Glom Filt Rate >90 >60 mL/min/1.7 3m2 11/23/2024 6:16 PM T [facility] Comment: These results are not [...] 11 9 - 20 11/23/2024 6:16 PM T [facility] Calcium 8.5(L) 8.6 - 10.4 mg/dL 11/23/2024 6:16 PM T [facility] Blood BLOOD SPECIMEN / Unknown 11/23/2024 6:16 PM EDT 11/23/2024 6:30 PM EDT Shelley Sanz DO CHEMISTRY ORDERABLES Final Result Performing Organization Address City/[facility]/ZIP Co de Phone Number [facility] [address] [place] [address] * APTT (11/15/2024 1:25 PM EDT) Only the most recent of2 resultswithin the time period is included. APTT 27.8 23.1 - 33.7 sec 11/15/2024 1:25 PM EDT [facility] Comment: IV Heparin Therapy Range: 62.0-94.0 Blood BLOOD SPECIMEN / Unknown 11/15/2024 1:25 PM EDT 11/15/2024 1:49 PM EDT Jory Hurd DO HEMATOLOGY ORDERABLES Final Result Performing Organization Address [facility] Co de Phone Number [facility] [address] [place] [address] * Protime-INR (11/15/2024 1:25 PM EDT) Only the most recent of2 resultswithin the time period is included. Protime 14.9 12.0 - 15.0 sec 11/15/2024 1:25 PM EDT [facility] INR 1.1 11/15/2024 1:25 PM EDT [facility] Comment: Therapeutic Range: Moderate Anticoagulant Intensity: INR = 2.0-3.0 High Anticoagulant Intensity: INR = 2.5-3.5 Blood BLOOD SPECIMEN / Unknown 11/15/2024 1:25 PM EDT 11/15/2024 1:49 PM EDT Jory Hurd DO HEMATOLOGY ORDERABLES Final Result Performing Organization Address City/[facility]/ZIP Co de Phone Number [facility] [address] [place] [address] * (ABNORMAL) Brain Natriuretic Peptide (11/15/2024 1:25 PM EDT) NT Pro-BNP 530(H) 0 - 125 pg/mL 11/15/2024 1:25 PM EDT [facility] Blood BLOOD SPECIMEN / Unknown 11/15/2024 1:25 PM EDT 11/15/2024 1:49 PM EDT us Jory Hurd DO CHEMISTRY ORDERABLES Final Result [facility] [address] [phone] * XR CHEST PORTABLE (11/15/2024 1:24 PM [...] osseous abnormality. IMPRESSION: 1. No acute abnormalities. us Jory M Brown DO IMG DIAGNOSTIC IMAGING ORDE IRASEMA Final Result * (ABNORMAL) POCT Glucose (11/08/2024 11:06 PM EDT) Only the most recent of7 resultswithin the time period is included. POC Glucose 130(H) 70 - 99 mg/dl 11/08/2024 11:06 PM EDT [facility] Performed on ACCU-CHEK 11/08/2024 11:06 PM EDT [facility] 11/08/2024 11:0 6 PM EDT 11/08/2024 11:19 PM EDT us Unknown Provider Result POINT OF CARE TEST ORDER JIN Final Result [facility] [address] [place] [address], [facility] [phone] * CTA CHEST ABDOMEN PELVIS W WO [...] * POCT Creatinine (11/08/2024 1:16 PM EDT) [facility] POC CREATININE WHOLE BLOOD 0.6 BLOOD SPECIMEN / Unknown 11/08/2024 1:16 PM EDT us Oc Graham MD POINT OF CARE TEST ORDERABLES Fi nal Result * POCT Venous (11/08/2024 1:14 PM EDT) [facility] POC Creatinine 0.6 0.6 - 1.2 mg/dL 11/08/2024 1:14 PM EDT [facility] Maria Teresa Deleont Rate >90 >60 11/08/2024 1:14 PM EDT [facility] Comment: Pediatric calculator link https://www.kidney.org/professionals/kdoqi/gfr_calculatorped Effective [...] Sample Type KIRA 11/08/2024 1:14 PM EDT [facility] Performed on SEE BELOW 11/08/2024 1:14 PM EDT [facility] Comment:Performed on POC 11/08/2024 1:14 PM EDT 11/08/2024 1:54 PM EDT us Oc Graham MD POINT OF CARE TEST ORDERABLES Fi nal Result [facility] [address] [place] [id number], [facility] [phone] * (ABNORMAL) Comprehensive Metabolic Panel w/ Reflex to MG (11/08/2024 12:50 PM EDT) Sodium 135 135 - 144 mEq/L 11/08/2024 12:59 PM EDT [facility] Potassium reflex Magnesium 3.6 3.4 - 4.9 mEq/L 11/08/2024 12:59 PM EDT [facility] Chloride 101 95 - 107 mEq/L 11/08/2024 12:59 PM EDT [facility] CO2 25 20 - 31 mEq/L 11/08/2024 12:59 PM EDT [facility] Anion Gap 9 9 - 15 mEq/L 11/08/2024 12:59 PM EDT [facility] Glucose 84 70 - 99 mg/dL 11/08/2024 12:59 PM [facility] BUN 14 6 - 20 mg/dL 11/08/2024 12:59 PM [facility] Creatinine 0.56 0.50 - 0.90 mg/dL 11/08/2024 12:59 PM [facility] Est, Glom Filt Rate >90.0 >60 11/08/2024 12:59 PM [facility] Comment: Pediatric calculator link https://www.kidney.org/professionals/kdoqi/gfr_calculatorped Effective [...] 8.5 - 9.9 mg/dL 11/08/2024 12:59 PM [facility] Total Protein 6.2(L) 6.3 - 8.0 g/dL 11/08/2024 12:59 PM [facility] Albumin 3.8 3.5 - 4.6 g/dL 11/08/2024 12:59 PM [facility] Total Bilirubin 0.4 0.2 - 0.7 mg/dL 11/08/2024 12:59 PM [facility] Alkaline Phosphatase 58 40 - 130 U/L 11/08/2024 12:59 PM [facility] ALT 12 0 - 33 U/L 11/08/2024 12:59 PM [facility] AST 25 0 - 35 U/L 11/08/2024 12:59 PM [facility] Globulin 2.4 2.3 - 3.5 g/dL 11/08/2024 12:59 PM [facility] Blood BLOOD SPECIMEN / Unknown 11/08/2024 12:50 PM EDT 11/08/2024 12:50 PM EDT us Oc Graham MD CHEMISTRY ORDERABLES Final Resul t [facility] [address] [place] [address], [facility] [phone] from Last 3 Months Insurance [employer] [place] Advance Directives * Full Code (Latest Code Status on File) Date Activated Date Inactivated Comments 11/28/2022 11:57 AM 12/03/2022 7:56 PM Healthcare Agents on File Name Relationship Healthcare Agent Relationshi p Communication Jessica Moise Parent Secondary Decision Maker Roddy Garcia Spouse Primary Decision Maker Care Teams Chemical 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 Relationship Specialty Start Date End Date Thomas Alas MD [address] [place] [address] PCP - General Family Medicine 11/08/24
== END 2024-12-04 13:48 | disposition left against medical advice (07) ==
PROVIDERS: Emergency Provider Emergency Medicine; PCP Family Medicine
DX: Z53.21 Procedure and treatment not carried out due to patient leaving prior to being seen by health care provider (principal)

== ENCOUNTER 2024-12-06 12:04 | Outpatient (OUT) | payer MEDICAID, SELFPAY ==
--- OUTSIDE RECORDS SUMMARY | 2024-10-31 05:45 | XMS_ITS ---
Author Organization The [facility] in [place] Address [address] [place] [address] Care Team Providers Care Geography Head Name Role Phone Brandyn Alas Primary Care Provider REASON FOR VISIT ER F/U Encounters Encounter Location Date Provider Diagnosis [facility] [address] [place] [address] 10/31/2024 Brandyn Alas Plan Of Treatment No Information Progress Notes * Abbey KONG MDOB:1990 (34 yo F)Acc No.[id number]:10/31/2024 UNLOCKED PROGRESS NOTE Progress Note Patient: Abbey OSBORNE :?Thomas Alas (TTC), MDDOB:1990???Age: 34 Y???Sex:FemaleDate:10/31/2024Phone:[phone]:[address] [place] [address] Subjective: * Chief Complaints: * 1 . ER F/U. * Medical History: Objective: * Vitals: Assessment: Plan: * Treatment: * * Electronic signature of Brandyn Alas MD, [id number] on 12/06/2024 at 12:12 PM EDT Sign off status: PendingVisit Status:?N/S N/C (No Show/No Charge) * Provider: Du Alas MD (TTC) Date: 0 10/31/2024 Generated for Printing/Faxing/eTransmitting on:?12/06/2024 12:12 PM EDT
--- OUTSIDE RECORDS SUMMARY | 2024-11-03 10:15 | XMS_ITS ---
Author Organization [facility] Address [address] [facility] [place] [address] Care Team Providers Care Sales Attendant Name Role Phone Ashley Bryson Primary Care Provider Christina Dominguez Unavailable Unavailable REASON FOR VISIT DEBRIDEMENT Encounters Encounter Location Date Provider Diagnosis [facility] [address] [place] [address] 11/03/2024 Christina Dominguez Plan Of Treatment No Information Progress Notes * JUAN KONG MDOB:1990 (34 yo F)Acc No.[id number]:11/03/2024 Patient:?DILAN JUAN Flores :?Christina DominguezDOB:1990???Age:34 Y???Sex: FemaleDate:11/03/2024Phone:[phone]:[address] [place], [place] [phone]:Ashley Bryson Subjective: * Chief Complaints: * D EBRIDEMENT * Electronic signature of Christina Dominguez on 12/06/2024 at 12:12 PM EDTSign off status: Pending * Provider: Lesia Dominguez Date: 0 11/03/2024 Generated for Printing/Faxing/eTransmitting on:?12/06/2024 12:12 PM EDT
--- OUTSIDE RECORDS SUMMARY | 2024-11-21 06:00 | XMS_ITS ---
Author Organization The [facility] in [place] Address [address] [place] [address] Care Team Providers Care Credit Compliance Officer Name Role Phone Brandyn Alas Primary Care Provider [phone] REASON FOR VISIT [facility] D/C- 10/3-R lower Quadrant Pain Encounters Encounter Location Date Provider Diagnosis [facility] [address] [place] [address] 11/21/2024 Brandyn Alas Plan Of Treatment No Information Progress Notes * Abbey KONG MDOB:1990 (34 yo F)Acc No.[id number]:11/21/2024 UNLOCKED PROGRESS NOTE Progress Note Patient: Abbey OSBORNE :?Thomas Alas (TTC), MDDOB:1990???Age: 34 Y???Sex:FemaleDate:11/21/2024Phone:[phone]:[address] [place] [phone] Subjective: * Chief Complaints: * 1 . [facility] D/C- 10/3-R lower Quadrant Pain. * Medical History: Objective: * Vitals: Assessment: Plan: * Treatment: * * Electronic signature of Brandyn Alas MD, [id number] on 12/06/2024 at 12:14 PM EDT Sign off status: PendingVisit Status:?CANC (Cancelled) * Provider: Du Alas ([facility])MD Date: 1 Generated for Printing/Faxing/eTransmitting on:?12/06/2024 12:14 PM EDT
--- OUTSIDE RECORDS SUMMARY | 2024-11-23 05:45 | XMS_ITS ---
Author Organization [facility] in [place] Address [address] [place] [address] Care Team Providers Care Predictive Maintenance Specialist Name Role Phone Brandyn Alas Primary Care Provider [phone] Allergies Allergen (clinical drug ingredient) Drug/Non Drug Allergy documented on EMR Reaction Allergy Type Onset Date Status codeine Codeine vomiting Drug Allergy ActiveNon-steroidal anti-inflammatory agent (FN)NSAIDsGastric bypassDrug Allergy Active REASON FOR VISIT [facility] D/C- 11/21- Chest Pain Medications Medication SIG (Take, Route, Frequency, Duration) Notes Start Date End Date Status Plavix 75 MG 1 tablet Orally Once a day 5ActiveOneTouch Ultra 2 w/DeviceUSE TO MONITOR BLOOD GLUCOSE LEVELS DAILY; Duration: 30ActivePyridium 200 MG1 tablet after meals Orally Three times a day; Duration: 2 days5ActivePrucalopride Succinate 2 MG1 tablet Orally Once a day; Duration: 30 daysActiveOndansetron 4 MG 1-2 tablet on the tongue and allow to dissolve Orally q4h; Duration: 30 days As needed 4ActiveMethocarbamol 500 MGTAKE 1.5 TABLETS BY MOUTH EVERY 6 HRS FOR 30 DAYS; Duration: 30ActiveLiothyronine Sodium 5 MCG1 tablet on an empty stomach Orally Once a day; Duration: 30 days4ActiveMetoprolol Succinate ER 25 MGOral; Duration: 30 DaysActiveMetoclopramide HCl 10 MG1 tablet before meals Orally achs; Duration: 30 days5ActiveLexapro 20 MG1 tablet Orally Once a day06/23/2023ctivehydrOXYzine HCl 50 MG1 tablet Orally Once a day at bedtime; Duration: 30 daysActiveLancets 30G -Use 1 lancet E11.9 once daily; Duration: 90 03/22/2024tiveHydrocortisone 10 MG1 tablet with food or milk Orally once a day PRN- InjectionActiveHYDROcodone-Acetaminophen 5-325 MG 1 - 2 tablet as needed - max 6/day Orally every 6 hrs; Duration: 30 days K56.600 K56.142565ActiveLevothyroxine Sodium 75 MCGTAKE 1 TABLET BY MOUTH EVERY MORNING ON AN EMPTY STOMACH FOR 30 DAYS; Duration: 90ActiveVerapamil HCl 40 MG1 tablet Oral every 8 hours; Duration: 30 daysActiveFerrous Sulfate 325 (65 Fe) MG 1 tablet Orally weekly; Duration: 30 days07/19/2023ctivefentaNYL 25 MCG/HR 1 patch to skin Transdermal Q 3 days K56.600 10/18/2024tiveFreeStyle Hunter 3 ReaderUse to monitor glucose levels multiple times daily DX Diabetes with hypoglycemic episodes; Duration: 365 days10/14/2023 ActiveFreeStyle Hunter 3 Plus Sensor -USE TO MONITOR GLUCOSE CHANGE ONCE EVERY 15 DAYS; Duration: 30ActiveColchicine 0.6 MG1/2 tablet Oral every other day; Duration: 30 daysActiveTriamcinolone Acetonide 0.1 %1 application Externally bid 5ActivetraZODone HCl 100 MG1 tablet Orally ohelcgm5511/18/2023ctive fentaNYL 12 MCG/HR 1 patch to skin Transdermal Q3d; Duration: 30 days with a 25mcg patch 10/17/2024tiveCompazine 10 MG1 tablet as needed Orally Three times a day 12/22/20230595LwwdxiKcjdflpjcx-UFTR-Ibyhbsqv 50-325-40 MGTAKE 1 TABLET BY MOUTH EVERY 4 HOURS NEEDED FOR HEADACHE; Duration: 4PRN04/21/2024tiveTest Strips - Test sugar Once daily; Duration: 90 days Dx: E11.9 5ActivetraMADol HCl 50 MG 1 tablet as needed Orally qid; Duration: 30 days As needed PRN5ActiveTopamax 100 MG1 tablet Orally BID; Duration: 30 days 06/23/2023ctiveRanolazine ER 500 MGTAKE 1 TABLET BY MOUTH TWICE DAILY Oral; Duration: 30 DaysActiveSucralfate 1 GM1 tablet on an empty stomach Orally TID 10/03/2024tiveRosuvastatin Calcium 40 MGTAKE 1 TABLET BY MOUTH AT BEDTIME Oral; Duration: 30 DaysActiveRemeron 30 MG1.5 tablet at bedtime Orally Once a day06/23/2023ctiveAspirin 81 MG1 tablet Orally Once a day5Active Social History Tobacco Use: Social History Observation Description Date Details (start date - stop date) Never Smoker NA - NA Tobacco Control (Standard) Question Answer Notes Tobacco use: Nonsmoker Vital Signs Weight 180.4 lbs 11/23/2024 Height 66 in 11/23/2024 Blood pressure systolic 128 mm Hg 11/24/19 25 Blood pressure diastolic 88 mm Hg 025 BMI 29.11 kg/m2 11/23/2024 Encounters Encounter Location Date Provider Diagnosis [address] [id number] 11/23/2024 Brandyn Alas Hypoglycemia E16.2 a nd IBS (irritable bowel syndrome) K58.9 Assessments Encounter Date Diagnosis (ICD Code) Assessment Notes Treatment Notes Treatment Clinical Notes Section Notes 11/23/2024 Hypoglycemia (ICD-10 - E16.2) 11/23/2024IBS (irritable bowel syndrome) (ICD-10 - K58.9) Plan Of Treatment No Information Progress Notes * Abbey KONG MDOB:1990 (34 yo F)Acc No.[id number]:11/23/2024 Progress Note Patient: Jarrod COVARRUBIAS Abbey Flores :?Thomas Alas ([facility]), MDDOB:1990???Age: 34 Y???Sex:FemaleDate:11/23/2024Phone:[phone]:[id number] In:09:21 AM ESTCheck Out:10:37 AM EST Subjective: * Chief Complaints: * [facility] D/C- 11/21- Chest Pain * HPI: ???General:? Epsode of CP yesterday last 15 min Was admitted to [facility] had issues with pain management while in the hosptial? even patch was held alexus ebladder issues. * ROS: ???EENT:?hearing changes?denies.?visual changes?denies. non-healing mouth sores?denies.?swollen glands or neck lumps?denies.?hoarseness?denies.?sore throat?denies.?difficulty swallowing?denies.?nose bleeds?denies.?nasal congestion?denies.?ear ache?denies.?ear discharge denies.?ringing in ears?denies.?light sensitivity?denies.?eye pain?denies.?blurring?denies.?eye irritation?denies.?double vision?denies. vision loss?denies.?General/Constitutional:?Sweats:?Denies.?Fatigue?denies.?Sleep proble ms?denies.?Anorexia?denies.?Malaise?denies.?Weight loss?denies. Fatigue or Weakness?denies.?Fever or Chills?denies.?Cardiovascular:?Shortness of Breath w/lying flat?denies.?Lightheadedne ss/dizziness?denies.?Chest tightness/ heavy pressure?denies.?Swelling of legs, a nkles, or feet?denies.?Waking up with shortness of breath?denies.?Chest pain&#16 0;denies.?Palpitations?denies.?Weight gain?denies.?Respiratory:?Chronic or frequent cough?denies.?Coughing up blood&#1 60;denies.?Difficulty breathing?denies.?Productive cough?denies.?Snoring&#1 60;denies.?Shortness of breath that awakens from sleep (PND)?denies.?Chest pain? denies.?Sputum production?denies.?Wheezing?denies.?Musculoskeletal:?Joint pain?denies.?Joint Fluid?denies.?Backpain?denies.?Knee pain?denies.?Neck pain?denies.?Joint Stiffness?denies.?Muscle cramps?denies.?Weakness of muscles?denies.?Arthritis?denies.?Muscle aches?denies.?Pain in shoulder(s)?denies.?Swollen joints?denies.? * Active Problem List J45.909 Asthma Modified On:06/23/2023 Status:gmesinnroP19.9GERD (gastroesophageal reflux disease) Modified On:06/23/2023 Status:wxzuqrircD36.9Hypothyroidism Modified On:06/23/2023 Status:kvkrgflpbL22.9Anxiety Modified On:06/23/2023 Status:oycgnsfsqD63.909Migraine Modified On:06/23/2023 Status:yijrzpnhbI12.9IBS (irritable bowel syndrome) Modified On:06/23/2023 Status:bpityhiwmC74.2Hypoglycemia Modified On:06/23/2023 Status:angqjsxhbB55Mmjxhm protein-calorie malnutrition Modified On:06/30/2023 Status:ulcrvlrdhQ84.1PEG (percutaneous endoscopic gastrostomy) status Modified On:06/30/2023 Status:cgpkpshymK32.9Acquired hypothyroidism Modified On:06/30/2023 Status:nojjulglbI42.1GAD (generalized anxiety disorder) Modified On:06/30/2023 Status:itcxpruijZ69.1Gastrostomy in place Modified On:07/21/2023 Status:wmajqxnlkC98.10Allergic conjunctivitis Modified On:08/23/2023 Status:hehlfaaoiS13.0Facial edema Modified On:08/23/2023 Status:xuyllcfxcQ33.9Neutropenia Modified On:09/27/2023 Status:rasssmxigC02.0Moderate malnutrition Modified On:09/27/2023 Status:ijszeeidpC06.600Partial intestinal obstruction, unspecified as to cause Modified On:09/29/2023/U Status:lvfwlesjfG58.4Jejunostomy tube present Modified On:11/24/2023/U Status:ycxtxufnvL24.1Postgastric surgery syndromes Modified On:01/03/2024/U Status:apolscabaV42.9Low testosterone level in female Modified On:01/25/2024/U Status:burcamcieV23.1Feeding by G-tube Modified On:04/17/2024/U Status:ungcihwiuB48.9Anxiety disorder Modified On:04/17/2024/U Status:tmjmtmuzgT63.16Lumbar radiculopathy Modified On:04/17/2024/U Status:oppwniwraW53.84Gastroparesis Modified On:04/17/2024/U Status:gisnbxiucL87.829Elevated white blood cell count Modified On:08/10/2024/U Status:umlmohihjY18.9Sepsis Modified On:09/11/2024/U Status:exbmfvspoP49.10CAD (coronary artery disease) Modified On:11/14/2024/U Status:pubdeioqlL13.34Hypoxia, sleep related Modified On:11/15/2024U Status:confirmed * Medical History: * Surgical History: G astric bypass ESAREAN DELIVERYx3 APPENDECTOMY CHOLECYSTECTOMY MALS Surgery 02/2023J Tube removal 2024Port Replacement 2024Hematoma Surgery 2024 * Hospitalization/Major Diagno stic Procedure: s ee above- [facility], [facility]- malnutrition, DM 06/2023FR- Hypoglycemia 24Hypoglycemia/ Bowel Obstruction 02/07Sepsis ro[place] Port/ Bacteremia 09/2024Heart Attack- [facility] hest Pain 11/2024 * Family History: F ather: alive, thyroid disease, diagnosed with Hypertension. M other: alive, diagnosed with Diabetes, Hypertension. B rother(s): alive, thyroid disease, diagnosed with Hypertension. Sister(s): alive. S on(s): alive, Autisim. D aughter(s): alive, Autisim, attention deficit hyperactivity disorder. 2 brother(s) - healthy. 1 son(s) , 2 daughter(s) . . * Social History: ???Tobacco Use:?Tobacco Control (Standard)?Tobacco use:?Nonsmoker * Medications: T akingAspirin 81 MG Tablet Chewable 1 tablet Orally Once a day Dzyrjysujw-LKGP-Jqhthpfo 50-325-40 MG Tablet TAKE 1 TABLET BY MOUTH EVERY 4 HOURS NEEDED FOR HEADACHE , Notes to Pharmacist: PRNColchicine 0.6 MG Tablet 1/2 tablet Oral every other day Compazine 10 MG Tablet 1 tablet as needed Orally Three times a day fentaNYL 12 MCG/HR Patch 72 Hour 1 patch to skin Transdermal Q3d with a 25mcg patchfentaNYL 25 MCG/HR Patch 72 Hour 1 patch to skin Transdermal Q 3 days K56.600Ferrous Sulfate 325 (65 Fe) MG Tablet 1 tablet Orally weekly FreeStyle Hunter 3 Plus Sensor(Continuous Glucose Sensor) - Miscellaneous USE TO MONITOR GLUCOSE CHANGE ONCE EVERY 15 DAYS FreeStyle Hunter 3 Brooks Use to monitor glucose levels multiple times daily DX Diabetes with hypoglycemic episodes HYDROcodone-Acetaminophen 5- 325 MG Tablet 1 - 2 tablet as [...] once daily Levothyroxine Sodium 75 MCG Tablet TAKE 1 TABLET BY MOUTH EVERY MORNING ON AN EMPTY STOMACH FOR 30 DAYS Lexapro(Escitalopram Oxalate) 20 MG Tablet 1 tablet Orally Once a day Liothyronine Sodium 5 MCG Tablet 1 tablet on an empty stomach Orally Once a day Methocarbamol 500 MG Tablet TAKE 1.5 TABLETS BY MOUTH EVERY 6 HRS FOR 30 DAYS Metoclopramide HCl 10 MG Tablet 1 tablet before meals Orally achs Metoprolol Succinate ER 25 MG Tablet Extended Release 24 Hour Oral Ondansetron 4 MG Tablet Disintegrating 1-2 tablet on the tongue and allow to dissolve Orally q4h As neededOneToCelltex Therapeutics Ultra 2(Blood Glucose Monitoring Suppl) w/Device Kit USE TO MONITOR BLOOD GLUCOSE LEVELS DAILY Plavix(Clopidogrel Bisulfate) 75 MG Tablet 1 tablet Orally Once a day Prucalopride Succinate 2 MG Tablet 1 tablet Orally Once a day Pyridium(Phenazopyridine HCl) 200 MG Tablet 1 tablet after meals Orally Three times a day Ranolazine ER 500 MG Tablet Extended Release 12 Hour TAKE 1 TABLET BY MOUTH TWICE DAILY Oral Remeron(Mirtazapine) 30 MG Tablet 1.5 tablet at bedtime Orally Once a day Rosuvastatin Calcium 40 MG Tablet TAKE 1 TABLET BY MOUTH AT BEDTIME Oral Sucralfate 1 GM Tablet 1 tablet on an empty stomach Orally TID Test Strips - - Test sugar Once daily Dx: E11.9Topamax(Topiramate) 100 MG Tablet 1 tablet Orally BID traMADol HCl 50 MG Tablet 1 tablet as needed Orally qid As needed, Notes to Pharmacist: PRNtraZODone HCl 100 MG Tablet 1 tablet Orally bedtime Triamcinolone Acetonide 0.1 % Cream 1 application Externally bid Verapamil HCl 40 MG Tablet 1 tablet Oral every 8 hours Taking Aspirin 81 MG Tablet Chewable 1 tablet Orally Once a day Taking Nmtnydnnjr-JKMR-Yhyyhumv 50-325-40 MG Tablet TAKE 1 TABLET BY MOUTH EVERY 4 HOURS NEEDED FOR HEADACHE , Notes to Pharmacist: PRNTaking Colchicine 0.6 MG Tablet 1/2 tablet Oral every other day Taking Compazine 10 MG Tablet 1 tablet as needed Orally Three times a day Taking fentaNYL 12 MCG/HR Patch 72 Hour 1 patch to skin Transdermal Q3d with a 25mcg patchTaking fentaNYL 25 MCG/HR Patch 72 Hour 1 patch to skin Transdermal Q 3 days K56.600Taking Ferrous Sulfate 325 (65 Fe) MG Tablet 1 tablet Orally weekly Taking FreeStyle Hunter 3 Plus Sensor(Continuous Glucose Sensor) - Miscellaneous USE TO MONITOR GLUCOSE CHANGE ONCE EVERY 15 DAYS Taking FreeStyle Hunter 3 Brooks Use to monitor glucose levels multiple times daily DX Diabetes with hypoglycemic episodes Taking HYDROcodone-Acetaminophen 5-325 MG Tablet 1 - [...] daily Taking Levothyroxine Sodium 75 MCG Tablet TAKE 1 TABLET BY MOUTH EVERY MORNING ON AN EMPTY STOMACH FOR 30 DAYS Taking Lexapro(Escitalopram Oxalate) 20 MG Tablet 1 tablet Orally Once a day Taking Liothyronine Sodium 5 MCG Tablet 1 tablet on an empty stomach Orally Once a day Taking Methocarbamol 500 MG Tablet TAKE 1.5 TABLETS BY MOUTH EVERY 6 HRS FOR 30 DAYS Taking Metoclopramide HCl 10 MG Tablet 1 tablet before meals Orally achs Taking Metoprolol Succinate ER 25 MG Tablet Extended Release 24 Hour Oral Taking Ondansetron 4 MG Tablet Disintegrating 1-2 tablet on the tongue and allow to dissolve Orally q4h As neededTaking Bloom[employer] 2(Blood Glucose Monitoring Suppl) w/Device Kit USE TO MONITOR BLOOD GLUCOSE LEVELS DAILY Taking Plavix(Clopidogrel Bisulfate) 75 MG Tablet 1 tablet Orally Once a day Taking Prucalopride Succinate 2 MG Tablet 1 tablet Orally Once a day Taking Pyridium(Phenazopyridine HCl) 200 MG Tablet 1 tablet after meals Orally Three times a day Taking Ranolazine ER 500 MG Tablet Extended Release 12 Hour TAKE 1 TABLET BY MOUTH TWICE DAILY Oral Taking Remeron(Mirtazapine) 30 MG Tablet 1.5 tablet at bedtime Orally Once a day Taking Rosuvastatin Calcium 40 MG Tablet TAKE 1 TABLET BY MOUTH AT BEDTIME Oral Taking Sucralfate 1 GM Tablet 1 tablet on an empty stomach Orally TID Taking Test Strips - - Test sugar Once daily Dx: E11.9Taking Topamax(Topiramate) 100 MG Tablet 1 tablet Orally BID Taking traMADol HCl 50 MG Tablet 1 tablet as needed Orally qid As needed, Notes to Pharmacist: PRNTaking traZODone HCl 100 MG Tablet 1 tablet Orally bedtime Taking Triamcinolone Acetonide 0.1 % Cream 1 application Externally bid Taking Verapamil HCl 40 MG Tablet 1 tablet Oral every 8 hours DiscontinuedCefdinir 300 MG Capsule 2 capsule Orally once a day Medication List reviewed and reconciled with the patientDiscontinued Cefdinir 300 MG Capsule 2 capsule Orally once a day Medication List reviewed and reconciled with the patient * Allergies: C odeine: vomiting - AllergyNSAIDs: Gastric bypass - Contraindicationno[Allergies Verified] Objective: * Vitals: W t:180.4lbs, Ht: 66 in, BP:128/88mm Hg, BMI:29.11Index, Ht-cm: 167.64 cm, Wt-k.83 kg. * Examination: ???Physical Exam: ?GENERAL:?well developed, well nourished, in no acute distress.?HEAD:?normocephalic/atraumatic.?EYES:?pupils equal, round and reactive to light, conjunctivae and sclerae normal.?EARS:?no deformity or lesion of external ear, canals and TM appear normal bilaterally, TM's intact, not inflamed with normal light reflex, hearing grossly normal to conversational speech.?NOSE:?no deformity, discharge, inflammation, or lesions. ?MOUTH:?mucous membranes moist, normal oropharynx and posterior pharynx without lesions or exudates, tongue normal, dentition normal.?NECK:?neck supple, no masses or palpable cervical nodes, trachea midline, thyroid without nodules, masses, tenderness, or enlargement.?CHEST:?no chest wall deformity, no chest wall tenderness. ?LUNGS:?normal respiratory effort and clear to auscultation, no wheezes, rales, or rhonchi, good air exchange.?CARDIO:?regular rate and rhythm, normal S1 and S2, nor murmur, rub, or gallop.?PULSES:?normal capillary refill.?ABDOMEN:?soft, non-distended, non-tender, no masses.?MUSCULOSKELETAL:?no deformity or scoliosis noted, normal range of motion, joints normal, no erythema, edema, effusion, or ecchymosis.?EXTREMITY:?no clubbing, cyanosis, edema, or deformity withnormal ROM in both upper and lower bilateral extremities.?NEUROLOGIC:?grossly normal.?SKIN:?no rashes, ulcerations, or suspicious lesions.?LYMPH NODES:?no cervical adenopathy, nodes normal.?MENTAL STATUS:?alert and oriented x3, normal mood and affect.? Assessment: * Assessment: 1.?Hypoglycemia - E16.2 (Primary)???2.?IBS (irritable bowel syndrome) - K58.9??? Plan: * Treatment: * Procedure Codes: * Preventive Medicine: ??Screenings/Counseling:?BMI ACTION PLAN?Above Normal BMI Follow-up?Dietary management education, guidance, and counseling * * Sign off status: CompletedVisit Status:?CHK (Check Out) true * Provider: Du Alas ([facility])MD Date: Generated for Printing/FaGoChimeg/eTransmitting on:?12/06/2024 12:14 PM EDT History and Physical Notes * HPI (History of Present Illness) CategorySub-CategoryDetailNotesCategory NotesGeneral Epsode of CP yesterday last 15 min Was admitted to [facility] had issues with pain management while in the hosptial even patch was held alexus ebladder issues Examination CategorySub-CategoryDetailNotesCategory NotesPhysical ExamGENERAL:well developed, well nourished, in no acute distressHEAD:normocephalic/atraumatic EYES:pupils equal, round and reactive to light, conjunctivae and sclerae normal EARS:no deformity or lesion of external ear, canals and TM appear normal bilaterally, TM's intact, not inflamed with normal light reflex, hearing grossly normal to conversational speechNOSE:no deformity, discharge, inflammation, or lesionsMOUTH:mucous membranes moist, normal oropharynx and posterior pharynx without lesions or exudates, tonguenormal, dentition normalNECK:neck supple, no masses or palpable cervical nodes, trachea midline, thyroid without nodules, masses, tenderness, or enlargementCHEST:no chest wall deformity, no chest wall tendernessLUNGS:normal respiratory effort and clear to auscultation, no wheezes, rales, or rhonchi, good air exchangeCARDIO:regular rate and rhythm, normal S1 and S2, nor murmur, rub, or gallopPULSES:normal capillary refillABDOMEN:soft, non-distended, non-tender, no massesRECTAL:MUSCULOSKELETAL:no deformity or scoliosis noted, normal range of motion, joints normal, no erythema, edema, effusion, or ecchymosisEXTREMITY:no clubbing, cyanosis, edema, or deformity with normal ROM in both upper and lower bilateral extremitiesNEUROLOGIC:grossly normalSKIN:no rashes, ulcerations, or suspicious lesionsLYMPH NODES:no cervical adenopathy, nodes normalMENTAL STATUS:alert and oriented x3, normal mood and affect
--- OUTSIDE RECORDS SUMMARY | 2024-11-23 17:32 | XMS_ITS | Encounter Summary ---
Author Organization [facility] 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 Patient reports that shehas not voided for over 24 hours and is experiencing severe pain pressure and nausea. Encounter Details DateTypeDepartmentCare Team (Latest Contact Info)Fmmurqtwxle42/09/2025 5:32 PM EDT - 11/23/2024 8:26 PM EDTEmerMer[facility] [address] [place] [address] Shelley Sanz, DO [address] [place] [address] Acute urinary retention (Primary Dx); Acute UTI Discharge Disposition: Home or Self Care Social History Tobacco UseTypesPacks/DayYears UsedDateSmoking Tobacco: NeverSmokeless Tobacco: NeverAlcohol UseStandard Drinks/WeekCommentsNot Currently0 (1 standard drink = 0.6 oz pure alcohol)AUDIT-CAnswerDate RecordedQ1: How often do you have a drink containing alcohol?Never12/14/2022Q2: How many drinks containing alcohol do you have on a typical day when you are drinking?Patient does not drink12/14/2022Q3: How often do you have six or more drinks on one occasion?Never12/14/2022UDIT-C AnswerDate RecordedQ1: How often do you have a drink containing alcohol?Never 11/08/2024Q2: How many drinks containing alcohol do you have on a typical day when you are drinking?Patient does not drink11/08/2024Q3: How often do you have six or more drinks on one occasion?Never11/08/2024Interpersonal Safety Domain Source: IP Abuse ScreeningAnswerDate RecordedPhysical trdwtXiejyh05/09/2025 Verbal urrzpWrpzlr26/09/2025Emotional vtstzFfxstn23/09/2025Financial abuseDenies 11/23/2024Sexual wvxdeSphuer99/09/2025CommentsNoSex and Gender InformationValueDate RecordedSex Assigned at BirthNot on fileLegal SexFemale 04/12/2013 2:41 PM ESTGender IdentityNot on fileSexual OrientationNot on file documented as of this encounter Last Filed Vital Signs Vital SignReadingTime TakenCommentsBlood Jkgsfpyh266/6511/23/2024 8:26 PM EDT Erqos297711/23/2024 8:26 PM QEYMbfflrhsppl12.7 ??C (98.1 ??F)11/23/2024 8:26 PM EDTRespiratory Wclg3824 8:26 PM EDTOxygen Igrqhvyokw78%11/23/2024 8:26 PM EDTInhaled Oxygen Concentration--Keipmu19.6 kg (180 lb)11/23/2024 5:27 PM EDT Dxdsia988.6 cm (5' 6 )11/23/2024 5:27 PM EDTBody Mass Index29.0511/23/2024 5:27 PM EDTdocumented in this encounter Discharge Instructions * Discharge Instructions* Pablo Atwood, - 11/23/2024 7:55 PM EDT Please take antibiotics as prescribed and call your urologist first thing in the morning to schedule follow-up appointment for eventual Costello catheter removal. * Attachments The following attachments cannot be sent through Care Everywhere. * Urinary Retention (Indonesian) documented in this encounter Medications at Time of Discharge MedicationSigDispense QuantityRefillsLast FilledStart DateEnd Date hydrocortisone (CORTEF) 10 MG tablet Take 1 tablet by mouth daily08/15/2024 verapamil (CALAN) 40 MG tablet Take 1 tablet by mouth traZODone (DESYREL) 100 MG tablet Take 1 tablet by mouth nightly sucralfate (CARAFATE) 1 GM tablet Take 1 tablet by mouth rosuvastatin (CRESTOR) 40 MG tablet Take 1 tablet by mouth iltimwe65 ranolazine (RANEXA) 500 MG extended release tablet Take 1 tablet by mouth 2 times daily Prucalopride Succinate (MOTEGRITY) 2 MG tablet Take 1 tablet by mouth daily methocarbamol (ROBAXIN) 500 MG tablet Take 1.5 tablets by mouth 4 times daily metFORMIN, OSM, (FORTAMET) 500 MG extended release tablet Take 1 tablet by mouth 2 times daily (with meals) fentaNYL (DURAGESIC) 12 MCG/HR APPLY TO SKIN TRANSDERMALLY EVERY 3 DAYS WITH A 25MCG PATCH11/06/2024 acetaminophen (TYLENOL) 325 MG tablet Take 2 tablets by mouth every 6 hours as needed for Pain aspirin 81 MG chewable tablet Take 1 tablet by mouth daily clopidogrel (PLAVIX) 75 MG tablet Take 1 tablet by mouth daily HYDROcodone-acetaminophen (NORCO) 5-325 MG per tablet Take 2 [...] every 6 hours as needed for Pain. scopolamine (TRANSDERM-SCOP) transdermal patch Place 1 patch onto the skin every 72 hours 10 patch 12/04/2022 pantoprazole sodium (PROTONIX) 40 MG PACK packet Take 1 packet by mouth every morning (before breakfast) 30 each ondansetron (ZOFRAN-ODT) 4 MG disintegrating tablet Take 1 tablet by mouth 3 times daily as needed for Nausea or Vomiting 21 tablet 12/01/2022 busPIRone (BUSPAR) 10 MG tablet Take 1 tablet by mouth 2 times daily mirtazapine (REMERON) 15 MG tablet Take 1 tablet by mouth nightly promethazine (PHENERGAN) 25 MG tablet Take 1 tablet by mouth every 6 hours as needed for Nausea liothyronine (CYTOMEL) 5 MCG tablet Take 1 capsule by mouth daily escitalopram (LEXAPRO) 20 MG tablet Take 1 tablet by mouth daily levothyroxine (SYNTHROID) 75 MCG tablet Take 1 tablet by mouth Daily topiramate (TOPAMAX) 100 MG tablet Take 0.5 tablets by mouth 2 times daily DULoxetine (CYMBALTA) 30 MG extended release capsule Take 1 capsule by mouth 2 times daily cephALEXin (KEFLEX) 500 MG capsule Take 1 capsule by mouth 3 times daily for 7 days 21 capsule metoclopramide (REGLAN) 10 MG tablet Take 1 tablet by mouth 2 times daily as unephb39/documented as of this encounter Plan of Treatment Not on file documented as of this encounter Procedures Procedure NamePriorityDate/TimeAssociated DiagnosisCommentsEKG 12-LEADRoutine 11/23/2024 6:44 PM EDT CBC WITH AUTO WLCLGKPCJTQATGKK46/09/2025 6:16 PM EDT GANLAHXLTDDD08/09/2025 6:16 PM EDT BASIC METABOLIC BBGNEZQTK72/09/2025 6:16 PM EDT URINALYSIS WITH REFLEX TO MNUZHDTWQHN32/09/2025 5:40 PM EDT MICROSCOPIC APKVPAIDEQOgugcni77/09/2025 5:40 PM EDT documented in this encounter Results * EKG 12 Lead (11/23/2024 6:44 PM EDT)ComponentValueRef RangeTest MethodAnalysis TimePerformed AtPathologist SignatureVentricular Rjdn61MNTWKQD [facility] RADIOLOGY Atrial Guqb85EKYDZQN [facility] RADIOLOGYP-R Dvmmyohr813msKFON [facility] RADIOLOGYQRS Uxycezru85rtZOOQ MTH RADIOLOGYQ-T Kcrjuqca202gsELJE [facility] RADIOLOGYQTc Calculation (Bazett)486msMHPN [facility] RADIOLOGYP Oqex62cuclvbjFERQ MTH RADIOLOGYR Hpop62dvarnyzMVSB MTH RADIOLOGYT Lkik67inldlcuWHTI MTH RADIOLOGYSpecimen (Source)Anatomical Location / LateralityCollection Method / VolumeCollection TimeReceived Time11/23/2024 6:44 PM EDT Narrative [facility] RAD[facility]OLOG[facility] - 11/23/2024 11:05 PM EDT Normal sinus rhythm QTcB >= 480 msec Abnormal ECG When compared with ECG of 15-Nov-2024 13:19, No significant change was found Confirmed by Brad Good ([id number]) on 11/23/2024 11:05:14 PM Procedure Note Brad Good MD - 11/23/2024 Normal sinus rhythm QTcB >= 480 msec Abnormal ECG When compared with ECG of 15-Nov-2024 13:19, No significant change was found Confirmed by Brad Good ([id number]) on 11/23/2024 11:05:14 PM Authorizing ProviderResult TypeResult StatusChristina Gregory Sanz DOECG ORDERABLES Final ResultPerforming OrganizationAddressCity/State/ZIP CodePhone Number [facility]IOLOG[facility] * Troponin (11/23/2024 6:16 PM EDT)ComponentValueRef RangeTest MethodAnalysis TimePerformed AtPathologist SignatureTroponin, High Sensitivity<60 - 14 ng/L 11/23/2024 6:16 PM [facility] LABComment:High Sensitivity Troponin values cannot be compared with other Troponin methodologies.Specimen (Source)Anatomical Location / LateralityCollection Method / VolumeCollection TimeReceived TimeBloodBLOOD SPECIMEN / Ajukwnf7511/23/2024 6:16 PM EDT1 7:20 PM EDT Narrative Authorizing ProviderResult TypeResult StatusChtayler Sanz DOCHEMISTRY ORDERABLESFinal ResultPerforming OrganizationAddressCity/State/ZIP CodePhone Number [facility] [address] [phone] [phone] * (ABNORMAL) Basic Metabolic Panel (11/23/2024 6:16 PM EDT)ComponentValueRef RangeTest MethodAnalysis TimePerformed AtPathologist QnkwmexkmFqqyqc025850 - 145 mmol/L1 6:16 PM [facility] LABPotassium3.7 3.7 - 5.3 mmol/L1 6:16 PM [facility] LABChloride 10133 - 107 mmol/L1 6:16 PM [facility] WTZEV500 20 - 31 mmol/L1 6:16 PM [facility] LABAnion Gap9 9 - 16 mmol/L1 6:16 PM [facility] SXOGolfaal9589 - 99 mg/dL11/23/2024 6:16 PM [facility] PTBFTY15 - 20 mg/dL11/23/2024 6:16 PM [facility] LABCreatinine0.80.50 - 0.90 mg/dL11/23/2024 6:16 PM [facility] LABEst, Glom Filt Rate>90>60 mL/min/1.16b52911/23/2024 6:16 PM [facility] Comment: ? These results are not intended for use in patients <18 years of age. ? eGFR results are calculated without a race factor using the 2020 CKD-EPI equation. Careful clinical correlation is recommended, particularly when comparing to results calculated using previous equations. The CKD-EPI equation is less accurate in patients with extremes of muscle mass, extra-renal metabolism of creatine, excessive creatine ingestion, or following therapy that affects renal tubular secretion. BUN/Creatinine Vqbsj927 - 6:16 PM [facility] LABCalcium8.5(L)8.6 - 10.4 mg/dL11/23/2024 6:16 PM [facility] LABSpecimen (Source)Anatomical Location / LateralityCollection Method / VolumeCollection TimeReceived TimeBloodBLOOD SPECIMEN / Oszsqlc9211/23/2024 6:16 PM EDT1 6:30 PM EDT Narrative Authorizing ProviderResult TypeResult StatusChtayler Sanz DOCHEMISTRY ORDERABLESFinal ResultPerforming OrganizationAddressCity/State/ZIP CodePhone Number [facility] [address] [phone] * (ABNORMAL) CBC with Auto Differential (11/23/2024 6:16 PM EDT)ComponentValue Ref RangeTest MethodAnalysis TimePerformed AtPathologist SignatureWBC6.03.5 - 11.3 k/uL11/23/2024 6:16 PM [facility] LABRBC3.41(L)3.95 - 5.11 m/uL11/23/2024 6:16 PM [facility] LABHemoglobin 10.0(L)11.9 - 15.1 g/dL11/23/2024 6:16 PM [facility] Qerjlqtsig80.9(L)36.3 - 47.1 %11/23/2024 6:16 PM [facility] MEQTUE50.682.6 - 102.9 fL11/23/2024 6:16 PM [facility] SXTBBU05.325.2 - 33.5 pg11/23/2024 6:16 PM [facility] IKYTDQV79.428.4 - 34.8 g/dL11/23/2024 6:16 PM [facility] KYHWIQ34.811.8 - 14.4 %11/23/2024 6:16 PM [facility] WCPWrhqrbftc703300 - 453 k/uL11/23/2024 6:16 PM [facility] TVWJAK82.68.1 - 13.5 fL11/23/2024 6:16 PM [facility] LABNRBC Automated0.00.0 per 100 WBC11/23/2024 6:16 PM [facility] LABNeutrophils %6036 - 65 %11/23/2024 6:16 PM [facility] LABLymphocytes %3024 - 43 %11/23/2024 6:16 PM [facility] LABMonocytes %73 - 12 %11/23/2024 6:16 PM [facility] LABEosinophils %21 - 4 %11/23/2024 6:16 PM [facility] LABBasophils %10 - 2 %11/23/2024 6:16 PM [facility] LABImmature Granulocytes %00 %11/23/2024 6:16 PM EDT [facility] LABNeutrophils Absolute3.571.50 - 8.10 k/uL 11/23/2024 6:16 PM [facility] LABLymphocytes Absolute1.82 1.10 - 3.70 k/uL11/23/2024 6:16 PM [facility] Monocytes Absolute0.440.10 - 1.20 k/uL11/23/2024 6:16 PM [facility] LABEosinophils Absolute0.140.00 - 0.44 k/uL11/23/2024 6:16 PM [facility] LABBasophils Absolute0.050.00 - 0.20 k/uL 11/23/2024 6:16 PM [facility] LABImmature Granulocytes Absolute<0.030.00 - 0.30 k/uL11/23/2024 6:16 PM [facility] LABSpecimen (Source)Anatomical Location / LateralityCollection Method / VolumeCollection TimeReceived TimeBloodBLOOD SPECIMEN / Qqjklty4511/23/2024 6:16 PM EDT1 6:30 PM EDT Narrative Authorizing ProviderResult TypeResult StatusChristina R Sanz DOHEMATOLOGY ORDERABLESFinal ResultPerforming OrganizationAddressCity/State/ZIP CodePhone Number [facility] [address] [place], [place] [address] [phone] * (ABNORMAL) Microscopic Urinalysis (11/23/2024 5:40 PM EDT)ComponentValueRef RangeTest MethodAnalysis TimePerformed AtPathologist SignatureWBC, UA2 TO 50 - 5 /HPF11/23/2024 5:40 PM [facility] LABRBC, UA0 TO 20 - 2 /HPF11/23/2024 5:40 PM [facility] LABEpithelial Cells, UA 0 TO 20 - 25 /HPF11/23/2024 5:40 PM [facility] LABRenal Epithelial, UA0 TO 20 /HPF11/23/2024 5:40 PM [facility] LABBacteria, UATRACE(A)None11/23/2024 5:40 PM [facility] LABMucus, UATRACE(A)None11/23/2024 5:40 PM [facility] Specimen (Source)Anatomical Location / LateralityCollection Method / Volume Collection TimeReceived Time11/23/2024 5:40 PM EDT1 6:08 PM EDT Narrative Authorizing ProviderResult TypeResult StatusChristrevin BAEKR ORDERABLES Final ResultPerforming OrganizationAddressCity/State/ZIP CodePhone Number [facility] [address] [phone] [phone] * (ABNORMAL) Urinalysis with Reflex to Culture (11/23/2024 5:40 PM EDT)Component ValueRef RangeTest MethodAnalysis TimePerformed AtPathologist SignatureColor, UAOrange(A)Pbfbdi2211/23/2024 5:40 PM [facility] Turbidity AHKvsdfAcexe82/09/2025 5:40 PM [facility] Glucose, UrINTERPRET WITH CAUTION DUE TO INTENSE COLOR OF URINE.(A)NEGATIVE mg/dL11/23/2024 5:40 PM [facility] LABBilirubin, Urine INTERPRET WITH CAUTION DUE TO INTENSE COLOR OF URINE.(A)FNTOPCJR10/09/2025 5:40 PM [facility] LABKetones, UrineINTERPRET WITH CAUTION DUE TO INTENSE COLOR OF URINE.(A)NEGATIVE mg/dL11/23/2024 5:40 PM EDT [facility] LABSpecific [place], UA1.025(H)1.010 - 1.020 11/23/2024 5:40 PM [facility] LABUrine HgbINTERPRET WITH CAUTION DUE TO INTENSE COLOR OF URINE.(A)DUIIBDCS57/09/2025 5:40 PM [facility] LABpH, UrineINTERPRET WITH CAUTION DUE TO INTENSE COLOR OF URINE.5.0 - 9.010 5:40 PM [facility] Protein, UAINTERPRET WITH CAUTION DUE TO INTENSE COLOR OF URINE.(A)NEGATIVE mg/dL11/23/2024 5:40 PM [facility] LABUrobilinogen, Urine INTERPRET WITH CAUTION DUE TO INTENSE COLOR OF URINE.0.0 - 1.0 EU/dL11/23/2024 5:40 PM [facility] LABNitrite, UrineINTERPRET WITH CAUTION DUE TO INTENSE COLOR OF URINE.(A)YXWGHBNZ77/09/2025 5:40 PM [facility] LABLeukocyte Esterase, UrineINTERPRET WITH CAUTION DUE TO INTENSE COLOR OF URINE.(A)TRYNZNTL07/09/2025 5:40 PM [facility] LABSpecimen (Source)Anatomical Location / LateralityCollection Method / VolumeCollection TimeReceived WyweOtoyn29/09/2025 5:40 PM EDT1 6:08 PM EDT Narrative Authorizing ProviderResult TypeResult StatusChtayler BAKER ORDERABLES Final ResultPerforming OrganizationAddressCity/State/ZIP CodePhone Number [facility] [address] [place] [address], [facility] [phone] documented in this encounter Visit Diagnoses Diagnosis Acute urinary retention- Primary Other specified retention of urine Acute UTI Urinary tract infection, site not specified documented in this encounter Administered Medications Medication OrderMAR ActionAction DateDoseRateSite cefTRIAXone (ROCEPHIN) 1,000 mg in sterile water 10 mL IV syringe 1,000 mg, IntraVENous, ONCE, On Heena 11/23/24 at 1945, For 1 dose, Administer as slow IV Push over 5 mins Reconstitute 1 g vials with 9.6 mL of designated diluent to produce a 100 mg/mL solution. Given11/23/2024 7:41 PM EDT1,000 mg diphenhydrAMINE (BENADRYL) injection 25 mg 25 mg, IntraVENous, ONCE, 1 dose, On Heena 11/23/24 at 1800, IV Push at rate not to exceed 25 mg/min. Given11/23/2024 6:14 PM EDT25 mg fentaNYL (SUBLIMAZE) injection 50 mcg 50 mcg, IntraVENous, ONCE, 1 dose, On Heena 11/23/24 at 1945, If oral and IV narcotics ordered, use oral first and only use IV if oral is ineffective or cannot take oral. Do Not give oral and IV within 1 hour of each other unless specifically ordered. Given11/23/2024 7:41 PM EDT50 mcg prochlorperazine (COMPAZINE) injection 10 mg 10 mg, IntraVENous, ONCE, 1 dose, On Heena 11/23/24 at 1800, If administering IV push, administer at amaximum rate of 5 mg/minute. Patients should remain lying down following administration and be reassessed for relief of nausea and presence of hypotension. Patients should be assisted the first time they get up after administration. Given11/23/2024 6:14 PM EDT10 mgdocumented in this encounter Active and Recently Administered Medications Times are shown in EDT.Medication Order/ cefTRIAXone (ROCEPHIN) 1,000 mg in sterile water 10 mL IV syringe (COMPLETED) 1,000 mg, IntraVENous, ONCE, On Heena 11/23/24 at 1945, For 1 dose, Administer as slow IV Push over 5 mins Reconstitute 1 g vials with 9.6 mL of designated diluent to produce a 100 mg/mL solution. * 1940 (Given - Provider: Oksana Trevizo RN) diphenhydrAMINE (BENADRYL) injection 25 mg (COMPLETED) 25 mg, IntraVENous, ONCE, 1 dose, On Heena 11/23/24 at 1800, IV Push at rate not to exceed 25 mg/min. * 1813 (Given - Provider: Oksana Trevizo RN) fentaNYL (SUBLIMAZE) injection 50 mcg (COMPLETED) 50 mcg, IntraVENous, ONCE, 1 dose, On Heena 11/23/24 at 1945, If oral and IV narcotics ordered, use oral first and only use IV if oral is ineffective or cannot take oral. Do Not give oral and IV within 1 hour of each other unless specifically ordered. * 1940 (Given - Provider: Oksana Trevizo RN) prochlorperazine (COMPAZINE) injection 10 mg (COMPLETED) 10 mg, IntraVENous, ONCE, 1 dose, On Heena 11/23/24 at 1800, If administering IV push, administer at amaximum rate of 5 mg/minute. Patients should remain lying down following administration and be reassessed for relief of nausea and presence of hypotension. Patients should be assisted the first time they get up after administration. * 1813 (Given - Provider: Oksana Trevizo RN) documented in this encounter Care Teams Team MemberRelationshipSpecialtyStart DateEnd Date Thomas Alas MD [address] [phone] PCP - GeneralFamily Medicine11/08/24documented as of this encounter
--- OUTSIDE RECORDS SUMMARY | 2024-11-26 19:34 | XMS_ITS | Encounter Summary ---
Author Organization [facility] Address [address] [place] [address] Care Team Providers Care Salesperson Hosiery Name Role Phone Thomas Alas MD Primary Care Provider [phone] Reason for Referral * (Emergency) - Pending ReviewSpecialtyDiagnoses / ProceduresReferred By Contact Referred To Contact Procedures ECG 12 lead Israel Jeong MD [address] [place] [address] Phone: tel: fax: Referral IDStatusReasonStart DateExpiration DateVisits RequestedVisits [id number] Reason for Visit * ReasonCommentsDifficulty UrinatingDizziness Encounter Details DateTypeDepartmentCare Team (Latest Contact Info)Cbvvuyuijjk17/12/2025 7:34 PM EDT - 11/26/2024 9:45 PM EDTEmergency [facility] [address] [place] [address] Israel Jeong MD [address] [place] [address] Acute UTI (Primary Dx) Discharge Disposition: Home or Self Care () Social History Tobacco UseTypesPacks/DayYears UsedDateSmoking Tobacco: NeverSmokeless Tobacco: NeverAlcohol UseStandard Drinks/WeekCommentsNot Currently0 (1 standard drink = 0.6 oz pure alcohol)[facility] UtilitiesAnswerDate RecordedIn the past 12 months has the electric, gas, oil, or water company threatened to shut off services in your home?No11/15/2024Humiliation, Afraid, Rape, and Kick questionnaireAnswerDate RecordedWithin the last year, have you been afraid of your partner or ex-partner?No11/15/2024Emotionally AbusedNot on file11/15/2024Physically Abused Not on file11/15/2024Sexually AbusedNot on file11/15/2024Overall Financial Resource Strain (CARDIA)AnswerDate RecordedHow hard is it for you to pay for the very basics like food, housing, medical care, and heating?Not hard at all 11/15/2024TransportationAnswerDate RecordedIn the past 12 months, has lack of transportation kept you from medical appointments or from getting medications?No 11/15/2024Lack of Transportation (Non-Medical)Not on file11/15/2024Housing Stability Vital SignAnswerDate RecordedIn the last 12 months, was there a time when you were not able to pay the mortgage or rent on time?No11/15/2024In the past 12 months, how many times have you moved where you were living? At any time in the past 12 months, were you homeless or living in a longterm (including now)?No11/15/2024Hunger Vital SignAnswerDate RecordedWithin the past 12 months, you worried that your food would run out before you got the money to buymore.Never true11/15/2024Ran Out of Food in the Last YearNot on file 11/15/2024CommentsNoSex and Gender InformationValueDate RecordedSex Assigned at NoelzGobmpi95/03/2025 3:45 PM EDTLegal XspXfpajn67/30/2022 12:07 AM EDTGender VmmrbktbSithre21/03/2025 3:45 PM EDTSexual OrientationHeterosexual or Lmadiewc06/03/2025 3:45 PM EDTdocumented as of this encounter Last Filed Vital Signs Vital SignReadingTime TakenCommentsBlood Yxxdojpa699/6011/26/2024 9:25 PM EDT Xerqj567511/26/2024 9:25 PM KNCJalqporjaqt10.6 ??C (97.9 ??F)11/26/2024 7:34 PM EDTRespiratory Qbap7617 9:25 PM EDTOxygen Gfokwdpbjm27%11/26/2024 9:25 PM EDTInhaled Oxygen Concentration--Rjwyoh54.6 kg (180 lb)11/26/2024 7:34 PM EDT Lkuszd179.6 cm (5' 6 )11/26/2024 7:34 PM EDTBody Mass Index29.0511/26/2024 7:34 PM EDTdocumented in this encounter Functional Status * QuestionAnswerDate of DdygunircwAisvewPN455/6011/26/2024 9:25 PM Andie Bridges RNPulse7311/26/2024 9:25 PM Andie Bridges RN * Qureshi Fall RiskQuestionAnswerDate of AssessmentAuthorHistory of Falling, Immediate or Within 3 Angbef711 7:34 PM Roseline Lopez RNSecondary Akwqswwxf040/12/2025 7:34 PM Roseline Lopez RNAmbulatory Exh182 7:34 PM Roseline Lopez RNIntravenous Therapy/Heparin Ivic933 7:34 PM Roseline Lopez RNGait/Odrvfhktkdef690/12/2025 7:34 PM Roseline Lopez RNMental Gnznix988 7:34 PM Roseline Lopez RNMorse Fall Risk Blpeg572 7:34 PM Roseline Lopze RN * Cyrus ScaleQuestionAnswerDate of AssessmentAuthorBraden No Risk Interventions Continue to assess patient according to level of care11/26/2024 8:30 PM EDT Andie Fletcher RNSensory Anwxjwcquna216/12/2025 8:30 PM Andie Bridges RNMoisture41 8:30 PM Andie Bridges RNActivity4 11/26/2024 8:30 PM Andie Bridges RNMobility31 8:30 PM Andie Muhammad RNNutrition21 8:30 PM Andie Bridges RN Friction and Nzejq999 8:30 PM Andie Bridges RNBraden Scale Egauo7749/12/2025 8:30 PM Andie Bridges RN * Patient's Stated Pain GoalAnswerDate of AssessmentAuthorNo pain11/26/2024 9:33 PM Andie Bridges RN * [place] Fall Risk InterventionsQuestionAnswerDate of AssessmentAuthor [place] Fall Risk QipjjvtmwbuimZotdwlbw82/12/2025 7:34 PM Roseline Lopez RN * Pain Assessment TimerQuestionAnswerDate of AssessmentAuthorRestart Pain Assessment XielyQim20/12/2025 9:33 PM Andie Bridges RN * In the past 12 months, have you used drugs other than those required for medical reasons?AnswerDate of NsekmnhcqaCvpoby107/12/2025 7:35 PM Roseline Lopez RN * Sepsis Model ScoresQuestionAnswerDate of AssessmentAuthorEarly Detection of Sepsis Score1.4611/26/2024 9:31 PM EDTChelis, BatchqEarly Detection of Sepsis Vzrpo163 9:31 PM EDGino Batchq * Pain AssessmentQuestionAnswerDate of AssessmentAuthorPain LocationAbdomen 11/26/2024 8:30 PM Andie Bridges RNPain MumhdkkeecsXdpgs99/12/2025 8:30 PM Andie Bridges RNPain DqinxqipwcnjgEtkzhlutvray31/12/2025 8:30 PM Andie Bridges RNPain DescriptorsPressure;Dzuvrd3411/26/2024 8:30 PM Andie Bridges RNPain CvrjvAebhqtc91/12/2025 8:30 PM Andie Bridges RNPain TypeAcute pain11/26/2024 8:30 PM Andie Bridges RN Clinical ProgressionNot kalzppy5611/26/2024 8:30 PM Andie Bridges RNPain Assessment0-101 8:30 PM Andie Bridges RN * Pain ScoreAnswerDate of DumdzgsvuaYqtwgl185/12/2025 9:33 PM Andie Bridges RN * Audit Alcohol ScreeningQuestionAnswerDate of AssessmentAuthorHow often do you have a drink containing alcohol? 7:35 PM Roseline Lopez RNHow many standard drinks containing alcohol do you have on a typical day?No 11/26/2024 7:35 PM Roseline Lopez RNHow often do you have six or more drinks on one occasion? 7:35 PM Roseline Lopez RNAudit-C Score0 11/26/2024 7:35 PM Roseline Lopez RN * Head, Ears, Eyes, Nose, and Throat (HEENT)QuestionAnswerDate of Assessment AuthorHead, Ears, Eyes, Nose, and Throat (WDL)WDL1 8:30 PM Andie Bridges RN * Vital SignsQuestionAnswerDate of JtcxkfhmnhPgrqgfPO437/6011/26/2024 9:25 PM Andie Bridges RNTemp97.91 7:34 PM Roseline Lopez RNTemp ckhAysg9111/26/2024 7:34 PM Roseline Lopez RNPulse7311/26/2024 9:25 PM EDT Andie Fletcher RNResp181 9:25 PM Andie Bridges RNSpO298 11/26/2024 9:25 PM Andie Bridges RNMAP (mmHg)7311/26/2024 9:25 PM EDT Andie Fletcher RNPulse rate from Plethysmogram (bpm)7211/26/2024 9:25 PM Andie Bridges RN * GastrointestinalQuestionAnswerDate of AssessmentAuthorAbdominal TendernessSoft 11/26/2024 8:30 PM Andie Bridges RNBowel Sounds (All Quadrants)Active 11/26/2024 8:30 PM Andie Bridges RNGastrointestinal (WDL)X1 8:30 PM Andie Bridges RNAbdomen OeakibngzhBkuh29/12/2025 8:30 PM EDT Andie Fletcher RNGastrointestinal SymptomsNausea;Bwrpdyxi51/12/2025 8:30 PM Andie Bridges RNBowel SoundsAll /12/2025 8:30 PM EDT Andie Fletcher RN * Peripheral VascularQuestionAnswerDate of AssessmentAuthorPeripheral Vascular (WDL)WDL1 8:30 PM Andie Bridges RN * MusculoskeletalQuestionAnswerDate of AssessmentAuthorMusculoskeletal (WDL)WDL 11/26/2024 8:30 PM Andie Bridges RN * PsychosocialQuestionAnswerDate of AssessmentAuthorPsychosocial (WDL)WDL 11/26/2024 8:30 PM Andie Bridges RN * Qureshi Fall RiskQuestionAnswerDate of AssessmentAuthorHistory of Falling, Immediate or Within 3 Oiahnu087 7:34 PM Roseline Lopez RNSecondary Cycobmpbw378/12/2025 7:34 PM Roseline Lopez RNAmbulatory Pwe958 7:34 PM Roseline Lopez RNIntravenous Therapy/Heparin Zobb945 7:34 PM Roseline Lopez RNGait/Jdpmukipaayj028/12/2025 7:34 PM Roseline Lopez RNMental Nmsibf430/12/2025 7:34 PM Roseline Lopez RNMorse Fall Risk Gpaoi868 7:34 PM Roseline Lopez RN * Cyrus ScaleQuestionAnswerDate of AssessmentAuthorBraden No Risk Interventions Continue to assess patient according to level of care11/26/2024 8:30 PM EDT Andie Fletcher, RNSensory Rwdorphzewp238/12/2025 8:30 PM Andie Bridges RNMoisture41 8:30 PM Andie Bridges, RNActivity4 11/26/2024 8:30 PM Andie Bridges RNMobility31 8:30 PM EDT Andie Fletcher RNNutrition21 8:30 PM Andie Bridges RN Friction and Yhwhi407 8:30 PM Andie Bridges RNBraden Scale Fwvbv2944 8:30 PM Andie Bridges RN * CardiacQuestionAnswerDate of AssessmentAuthorCardiac (WDL)WDL1 8:30 PM Andie Bridges RN * RespiratoryQuestionAnswerDate of AssessmentAuthorRespiratory (WDL)WDL 11/26/2024 8:30 PM Andie Bridges RN * Charting TypeQuestionAnswerDate of AssessmentAuthorCharting TypeShift aglxgvpipd39/12/2025 8:30 PM Andie Bridges RN * Patient's Stated Pain GoalAnswerDate of AssessmentAuthorNo pain11/26/2024 9:33 PM Andie Bridges RN * GenitourinaryQuestionAnswerDate of AssessmentAuthorGenitourinary (WDL)X 11/26/2024 8:30 PM Andie Bridges RN * NeurologicalQuestionAnswerDate of AssessmentAuthorNeuro (WDL)WDL1 8:30 PM Andie Bridges RN * [place] Fall Risk InterventionsQuestionAnswerDate of AssessmentAuthor [place] Fall Risk KjfnbmlzutvrqFzytlnrl07/12/2025 7:34 PM Roseline Lopez RN * [place] Coma ScaleQuestionAnswerDate of AssessmentAuthorBest Eye Response Azufjyywjov05/12/2025 8:30 PM Andie Bridges RNBest Verbal Response Uyqgorxm96/12/2025 8:30 PM Andie Bridges RNBest Motor ResponseFollows /12/2025 8:30 PM Andie Bridges RNGlasgow Coma Scale Score15 11/26/2024 8:30 PM Andie Bridges RN * Pain AssessmentQuestionAnswerDate of AssessmentAuthorPain LocationAbdomen 11/26/2024 8:30 PM Andie Bridges RNPain MfsgxzjahukRqrbi60/12/2025 8:30 PM Andie Bridges RNPain EfrhtlzitnngfPrawmwpcnkie28/12/2025 8:30 PM Andie Bridges RNPain DescriptorsPressure;Nsfnfk3911/26/2024 8:30 PM Andie Bridges RNPain QluujVkjaijj67/12/2025 8:30 PM Andie Bridges RNPain TypeAcute pain11/26/2024 8:30 PM Andie Bridges RN Clinical ProgressionNot eqikovd2911/26/2024 8:30 PM Andie Bridges RNPain Assessment0-101 8:30 PM Andie Bridges RN * IntegumentaryQuestionAnswerDate of AssessmentAuthorSkin ColorAppropriate for race11/26/2024 8:30 PM Andie Bridges RNSkin Condition/TempWarm;Dry 11/26/2024 8:30 PM Andie Bridges RNIntegumentary (WDL)X1 8:30 PM Andie Bridges RN * Pain ScoreAnswerDate of AeedmngwpzAfzjxw520/12/2025 9:33 PM Andie Bridges RN * [place] Suicide Severity Rating ScaleQuestionAnswerDate of AssessmentAuthor1. Have you wished you were or wished you could go to sleep and not wake up? No11/26/2024 7:34 PM Roseline Lopez RN2. Have you actually had any thoughts of killing yourself?No11/26/2024 7:34 PM Roseline Loepz RN6. Have you ever done anything, started to do anything, or prepared to do anything to end your life?No11/26/2024 7:34 PM Roseline Lopez RN * Audit Alcohol ScreeningQuestionAnswerDate of AssessmentAuthorHow often do you have a drink containing alcohol? 7:35 PM Roseline Lopez RNHow many standard drinks containing alcohol do you have on a typical day?No 11/26/2024 7:35 PM Roseline Lopez RNHow often do you have six or more drinks on one occasion? 7:35 PM Roseline Lopez RNAudit-C Score0 11/26/2024 7:35 PM Roseline Lopez RN * Risk of SuicideAnswerDate of AssessmentAuthorNo Risk11/26/2024 7:34 PM Roseline Musa RN documented as of this encounter Mental Status * Kris Coma ScaleQuestionAnswerEntry DateAuthorBest Eye ResponseSpontaneous 11/26/2024 8:30 PM Andie Bridges RNBest Verbal ResponseOriented 11/26/2024 8:30 PM Andie Bridges RNBest Motor ResponseFollows commands 11/26/2024 8:30 PM Andie Bridges RNGlasgow Coma Scale Score15 11/26/2024 8:30 PM Andie Bridges RN documented in this encounter Discharge Instructions * Attachments The following attachments cannot be sent through Care Everywhere. * Urinary Tract Infection Adult (Ghanaian) documented in this encounter Medications at Time of Discharge MedicationSigDispense QuantityRefillsLast FilledStart DateEnd Date acetaminophen (Tylenol) 325 mg tablet Take 650 mg by mouth every 4 (four) hours if needed for mild pain (1-3 pain score). ALBUTEROL INHL Inhale 90 mcg every 6 (six) hours if needed (SOB or wheezing). aspirin 81 mg chewable tablet Indications:Spontaneous dissection of coronary arteryChew 1 tablet (81 mg) with breakfast for 120 doses. 30 tablet clopidogrel (Plavix) 75 mg tablet Indications:Spontaneous dissection of coronary arteryTake 1 tablet (75 mg) by mouth in the morning for 120 doses. 30 tablet colchicine 0.6 mg tablet Indications:Chest painTake 0.5 tablets (0.3 mg) by mouth every other day. Do not start before November 14, 2024. 8 tablet escitalopram (Lexapro) 20 mg tablet Take 20 mg by mouth in the morning. fentaNYL (Duragesic) 12 mcg/hr Place 1 patch on the skin every 3rd (third) day. Give with 25 mcg patch fentaNYL (Duragesic) 25 mcg/hr Place 1 patch on the skin every 3rd (third) day. HYDROcodone-acetaminophen ([place]) 5-325 mg tablet Take 2 tablets by [...] 5 mcg by mouth in the morning. metoclopramide (Reglan) 10 mg tablet Indications:GastroparesisTake 1 tablet (10 mg) by mouth if needed in the morning and at bedtime (nausea and vomiting). 60 tablet 11/02/2024 metoprolol succinate XL (Toprol-XL) 25 mg 24 hr tablet Indications:HematomaTake 1 tablet (25 mg) by mouth in the morning for 92 doses. Do not crush or chew. Do not start before November 08, 2024. 30 tablet 5 naloxone (Narcan) 0.4 mg/mL injection Indications:Chronic narcotic useInfuse 1 mL (0.4 mg) into a venous catheter if needed for opioid reversal. 1 mL / omeprazole (PriLOSEC) [address] capsule Take 40 mg by mouth before breakfast and before evening meal. Do not crush or chew. prucalopride 2 mg tablet Take 2 mg by mouth in the morning. ranolazine (Ranexa) 500 mg 12 hr tablet Indications:Chest painTake 1 tablet (500 mg) by mouth two times daily for 189 doses. Do not crush, chew, or split. 60 tablet /03/2025 rosuvastatin (Crestor) 40 mg tablet Indications:HematomaTake 1 tablet (40 mg) by mouth at bedtime for 99 doses. 30 tablet sucralfate (Carafate) 1 gram tablet Take 1 [...] at bedtime. verapamil (Calan) 40 mg tablet Indications:HematomaTake 1 tablet (40 mg) by mouth every 8 (eight) hours for 287 doses. 90 tablet cefpodoxime (Vantin) 200 mg tablet Take 1 tablet (200 mg) by mouth two times daily for 7 days. 14 tablet / metFORMIN, OSM, (Fortamet) 500 mg 24 hr tablet Take 500 mg by mouth with breakfast and with evening meal. Do not crush, chew, or split.12/04/2024 methocarbamol (Robaxin) 500 mg tablet Take 750 mg by mouth four times daily.12/04/2024 mirtazapine (Remeron) 30 mg tablet Take 45 mg by mouth at bedtime.12/04/2024documented as of this encounter ED Notes * Israel Jeong MD - 11/26/2024 7:44 PM EDT History of Present Illness Chief Complaint Patient presents with Difficulty Urinating Dizziness Initial evaluation conducted at 7:[address] Jean-Paul Flores Jose is a 34 year old female patient with a chief complaint of difficulty urinating and dizziness. Pt reports that she had a catheter placed 3 days ago. She states that she recently had intermittent chest pain but none currently. She reports some discomfort in her bladder but denies any upper abdominal pain. She denies any fever, trauma, or injury. History provided by: Patient Kris Coma Scale Score: 15 History Medical History[1] Surgical History[2] Family History[3] Social History[4] Review of Systems Review of Systems Genitourinary: Positive for dysuria. All other systems reviewed and are negative. Physical Exam ED Triage Vitals [11/26/24 193] Temp Heart Rate Resp BP 36.6 ??C (97.9 ??F) 76 15 126/66 SpO2 Temp Source Heart Rate Source Patient Position 100 % Oral -- -- BP Location FiO2 (%) -- -- Physical Exam Vitals reviewed. HENT: Head: Normocephalic and atraumatic. Nose: Nose normal. Mouth/Throat: Mouth: Mucous membranes are moist. Pharynx: Oropharynx is clear. Eyes: Extraocular Movements: Extraocular movements intact. Conjunctiva/sclera: Conjunctivae normal. Pupils: Pupils are equal, round, and reactive to light. Cardiovascular: Rate and Rhythm: Normal rate and regular rhythm. Pulses: Normal pulses. Heart sounds: Normal heart sounds. Pulmonary: Effort: Pulmonary effort is normal. Breath sounds: Normal breath sounds. Abdominal: Palpations: Abdomen is soft. Tenderness: There is no abdominal tenderness. Comments: Bedside ultrasound shows a collapsed bladder. Musculoskeletal: General: No tenderness. Normal range of motion. Cervical back: Normal range of motion and neck supple. Skin: General: Skin is warm and dry. Capillary Refill: Capillary refill takes less than 2 seconds. Neurological: General: No focal deficit present. Mental Status: She is alert and oriented to person, place, and time. Psychiatric: Mood and Affect: Mood and affect normal. Behavior: Behavior normal. Procedures ED Course & MDM Diagnoses as of 11/26/24 3232 Acute UTI Medical Decision Making The patient appears to have a UTI. We will treat with oral antibiotics. She is currently afebrile and does not appear septic. EKG does not show signs of STEMI and her troponin is negative. She deniesany current chest pain. She is otherwise neurovascularly intact. RESULTS Labs: Labs Reviewed COMPREHENSIVE METABOLIC PANEL - Abnormal Result Value Sodium 139 Potassium 3.7 Chloride 112 (*) CO2 22 Anion Gap 9 BUN 9 Creatinine 0.59 (*) BUN/Creatinine Ratio 15.3 Glucose 72 Calcium 7.4 (*) AST 24 ALT (SGPT) 12 Alkaline Phosphatase 78 Total Protein 5.6 (*) Albumin 3.6 Total Bilirubin 0.2 (*) eGFR 120.5 URINALYSIS WITH REFLEX CULTURE - Abnormal Color, Urine Dark-Yellow (*) Clarity, Urine Clear pH, Urine 7.0 Leukocytes, Urine Trace (*) Nitrite, Urine Positive (*) Protein, Urine Negative Glucose, Urine Normal Bilirubin, Urine Small (*) Specific Allen, Urine 1.018 Ketones, Urine Negative Blood, Urine Negative Urobilinogen, Urine 4.0 (*) CBC WITH AUTO DIFFERENTIAL - Abnormal Auto WBC 5.23 RBC 3.37 (*) Hemoglobin 9.9 (*) Hematocrit 29.9 (*) MCV 88.7 MCH 29.4 MCHC 33.1 RDW 14.0 Neutrophils % 44.5 Lymphocytes % 40.5 Monocytes % 10.9 Eosinophils % 3.1 Basophils % 0.8 Neutrophils Absolute 2.33 Lymphocytes Absolute 2.12 Monocytes Absolute 0.57 Eosinophils Absolute 0.16 Basophils Absolute 0.04 Platelets 316 nRBC % 0.0 Immature Granulocytes % 0.2 Immature Granulocytes Absolute 0.01 LIPASE - Normal Lipase 55 HIGH SENSITIVITY TROPONIN I - Normal High Sensitivity Troponin I <2 URINALYSIS MICROSCOPIC WITH REFLEX CULTURE - Normal RBC, Urine 0-2 WBC, Urine 0-2 Squamous Epithelial, Urine None Seen Mucus, Urine Occasional CBC AND DIFFERENTIAL Narrative: The following orders were created for panel order CBC and differential. Procedure Abnormality Status --------- ------ CBC auto differential[[id number]] Abnormal Final result Please view results for these tests on the individual orders. SERUM QUALITATIVE hCG, Serum Negative Radiology: XR chest 1 view Final Result * No radiographic evidence of acute cardiopulmonary abnormality. Approved by:Nadine Hdez11/26/2024 8:22 PM. I, AILEEN GRACE MD,have reviewed the image(s) and agree with the findings in this report. Electronically signed: AILEEN GRACE MD. NURSING NOTES AND VITALS REVIEWED The nursing notes within the ED encounter and vital signs as below have been reviewed. BP 104/60 Pulse 73 Temp 36.6 ??C (97.9 ??F) (Oral) Resp 18 Ht 1.676 m (5' 6 ) Wt 81.6 kg (180 lb) SpO2 98% BMI 29.05 kg/m?? PROGRESS NOTES The plan has been discussed with the patient regarding the diagnosis and prognosis. All questions have been answered at this time and they are agreeable with the plan of care. Instructions were givento return immediately for any new or worrisome concerns. Your medication list START taking these medications Instructions Last Dose Given Next Dose Due cefpodoxime 200 mg tablet Commonly known as: Vantin Take 1 tablet (200 mg) by mouth two times daily for 7 days. ASK your doctor about these medications Instructions Last Dose Given Next [...] HYDROcodone-acetaminophen 5-325 mg tablet Commonly known as: [place] hydrocortisone 10 mg tablet Commonly known as: [...] every 8 (eight) hours for 287 doses. Where to Get Your Medications These medications were sent to [facility]/pharmacy #[id number] - [place], [place] - [address] [facility] [address] [address] cefpodoxime 200 mg tablet Diagnosis: 1. Acute UTI Disposition: Patient's disposition: Discharge to home Patient's condition is stable. Attestation: I performed a history and physical exam on this patient and discussed his or her management with the resident. I reviewed the resident's note and agree with the documented findings and plan of care with the following exceptions: Provider Statement CHIO: Provider Statement 2nd Scribe. By electronically signing this emergency patient record, the Emergency Physician/TURNER MACHINE OPERATOR/PA-C attests that all entries made into the electronic medical record by the scribe prior to the Physician/TURNER MACHINE OPERATOR/PA-C signature reflect an accurate accounting of the evaluation and care rendered by that Emergency Physician/TURNER MACHINE OPERATOR/PA-C. The Emergency Physician/TURNER MACHINE OPERATOR/PA-C assumes full responsibility for those entries. The Emergency Physician/TURNER MACHINE OPERATOR/PA-C also attests that any patient testing or treatment that was instituted by nursing staff. [1] Past Medical History: Diagnosis Date Gastroparesis [2] Past Surgical History: Procedure Laterality Date ABDOMINAL SURGERY [3] Family History Problem Relation Name Age of Onset No Known Problems Mother No Known Problems Father [4] Social History Tobacco Use Smoking status: Never Smokeless tobacco: Never Substance Use Topics Alcohol use: Not Currently Drug use: Never Israel Jeong MD 11/26/24 [id number] * Roseline Matos RN - 11/26/2024 7:32 PM EDT Pt arrives for urinary problems. Pt claims she has a catheter and is not able to urinate. Pt also reports dizziness that has been going on for a few days. documented in this encounter Plan of Treatment DateTypeDepartmentCare Team (Latest Contact Info)Xifvkpxqszb82/30/2025 9:00 AM EDTAppointment [facility] [address] [place] [phone] Braxton Bellamy MD [address] [facility] [place] [address] 12/14/2024 10:30 AM EDTAppointment [facility] [address] [place] [address] 01/31/2025 11:00 AM ESTOffice Visit [facility] [address] [place] [facility] [place] [address] Wali Collins MD [address] [place] [address] documented as of this encounter Procedures Procedure NamePriorityDate/TimeAssociated DiagnosisCommentsURINALYSIS MICROSCOPIC WITH REFLEX VSYBMDZZRNI48/12/2025 8:27 PM EDT URINALYSIS WITH REFLEX VPKOPCJQOVH99/12/2025 8:27 PM EDT SERUM PYSYOWNZDUSRBLT56/12/2025 8:27 PM EDT XR CHEST 1 DVSJQDEM42/12/2025 8:17 PM EDT ECG 12-FIZAVSAP81/12/2025 8:13 PM EDT HIGH SENSITIVITY TROPONIN ISTAT1 8:05 PM EDT CBC WITH AUTO IKMYVMYUFUWCTGVA94/12/2025 8:05 PM EDT CBC AND BDTQVYOCRBDRWYIE48/12/2025 8:05 PM EDT LWQPCLTWGF41/12/2025 8:05 PM EDT COMPREHENSIVE METABOLIC BVEVOVHTN80/12/2025 8:05 PM EDT documented in this encounter Results * Urinalysis microscopic with reflex culture (11/26/2024 8:27 PM EDT)Component ValueRef RangeTest MethodAnalysis TimePerformed AtPathologist SignatureRBC, Urine0-2None Seen, 0-2 /HPF11/26/2024 8:52 PM [facility] WBC, Urine0-2None Seen, 0-2 /HPF11/26/2024 8:52 PM [facility])Squamous Epithelial, UrineNone SeenNone Seen, Occasional, Few /LPF 11/26/2024 8:52 PM [facility])Mucus, UrineOccasionalNone Seen, Occasional, Few /LP11/26/2024 8:52 PM [facility] Specimen (Source)Anatomical Location / LateralityCollection Method / Volume Collection TimeReceived TimeUrineUrine specimen obtained by clean catch procedure / UnknownNon-blood Collection / Pkuqgvt2311/26/2024 8:27 PM EDT 11/26/2024 8:33 PM EDT Narrative Authorizing ProviderResult TypeResult StatusDustin Jean-Paul CACECY URINE ORDERABLES Final ResultPerforming OrganizationAddressCity/State/ZIP CodePhone Number [facility]) [address] [place] [address] * Serum Qualitative (11/26/2024 8:27 PM EDT)ComponentValueRef Range Test MethodAnalysis TimePerformed AtPathologist SignaturehCG, SerumNegative 11/26/2024 8:51 PM [facility] ([place])Specimen (Source)Anatomical Location / LateralityCollection Method / VolumeCollection TimeReceived Time BloodVenous blood specimen / UnknownExisting Catheter / Wlqmysy3411/26/2024 8:27 PM EDT1 8:33 PM EDT Narrative Authorizing ProviderResult TypeResult StatusDustin Jean-Paul CACECY BLOOD ORDERABLES Final ResultPerforming OrganizationAddressCity/State/ZIP CodePhone Number [facility]) [address] [place] [address] * (ABNORMAL) Urinalysis with reflex culture (11/26/2024 8:27 PM EDT)Component ValueRef RangeTest MethodAnalysis TimePerformed AtPathologist SignatureColor, UrineDark-Yellow(A)Colorless, Yellow, Light-Tmztcn5311/26/2024 8:52 PM [facility] ([place])Clarity, SalyqTblpgJpmtj06/12/2025 8:52 PM [facility] ([place])pH, Urine7.05.0 - 8.0 pH11/26/2024 8:52 PM [facility] ([facility])Leukocytes, UrineTrace(A)Jdxcpjrq25/12/2025 8:52 PM [facility] ([facility])Nitrite, UrinePositive(A)Ggqkdffk99/12/2025 8:52 PM [facility] ([facility])Protein, UrineNegativeNegative mg/dL11/26/2024 8:52 PM [facility] ([facility])Glucose, UrineNormalNormal mg/dL 11/26/2024 8:52 PM [facility] ([facility] [place])Bilirubin, UrineSmall(A) Xzxuvljc47/12/2025 8:52 PM [facility] ([facility])Specific Allen, Urine1.0181.010 - 1.4985011/26/2024 8:52 PM [facility] ([facility]) Ketones, UrineNegativeNegative mg/dL11/26/2024 8:52 PM [facility] ([facility])Blood, LwsurWstgnpcmHmvdoecl55/12/2025 8:52 PM [facility] ([facility])Urobilinogen, Urine4.0(A)Normal mg/dL11/26/2024 8:52 PM [facility] ([facility])Specimen (Source)Anatomical Location / Laterality Collection Method / VolumeCollection TimeReceived TimeUrineUrine specimen obtained by clean catch procedure / UnknownNon-blood Collection / Unknown 11/26/2024 8:27 PM EDT1 8:33 PM EDT Narrative Authorizing ProviderResult TypeResult StatusDustin Jean-Paul ANNIKA URINE ORDERABLES Final ResultPerforming OrganizationAddressCity/State/ZIP CodePhone Number [facility] ([place]) [address] [place] [address] * XR chest 1 view (11/26/2024 8:17 PM EDT)Anatomical RegionLateralityModality ChestComputed RadiographySpecimen (Source)Anatomical Location / Laterality Collection Method / VolumeCollection TimeReceived Time11/26/2024 8:21 PM EDT Impressions 11/26/2024 8:37 PM EDT * No radiographic evidence of acute cardiopulmonary abnormality. Approved by:Nadine Hdez11/26/2024 8:22 PM. AILEEN Saunders MD,have reviewed the image(s) and agree with the findings in this report. Electronically signed: AILEEN GRACE MD. Narrative 11/26/2024 8:37 PM EDT XR CHEST 1 VIEW HISTORY: Chest pain, dizziness COMPARISON: 11/13/2024 TECHNIQUE: Single AP upright view of the chest obtained. FINDINGS: Stable right central venous catheter with tip overlying the mid SVC. Cardiomediastinal silhouette is within normal limits. No focal consolidation. No pleural effusion. No pneumothorax. Procedure Note Aileen Grace MD - 11/26/2024 XR CHEST 1 VIEW HISTORY: Chest pain, dizziness COMPARISON: 11/13/2024 TECHNIQUE: Single AP upright view of the chest obtained. FINDINGS: Stable right central venous catheter with tip overlying the mid SVC. Cardiomediastinal silhouette is within normal limits. No focalconsolidation. No pleural effusion. No pneumothorax. IMPRESSION: *No radiographic evidence of acute cardiopulmonary abnormality. Approved by:Nadine Hdez11/26/2024 8:22 PM. AILEEN Saunders MD,have reviewed the image(s) and agree with the findingsin this report. Electronically signed: AILEEN GRACE MD. Authorizing ProviderResult TypeResult StatusDustin Jean-Paul IMG XR PROCEDURESFinal Result * ECG 12 lead (11/26/2024 8:13 PM EDT)ComponentValueRef RangeTest MethodAnalysis TimePerformed AtPathologist SignatureVentricular Celz07BWIDJ MUSEAtrial Rate 70BPMGE MUSEPR Hgiejhey716tbWV MUSEQRS TYRSGKXK18jzKF MUSEQT Ddvcienx680cbKW MUSEQTC CALCULATION(BAZETT)470msGE MUSEP Kuxx58xvmgmxxBT MUSER-Cxha89ftrfmlsGX MUSET Wave Onlt24lyuwxejYN MUSESpecimen (Source)Anatomical Location / LateralityCollection Method / VolumeCollection TimeReceived Time11/26/2024 7:52 PM EDT1 8:15 PM EDT Impressions [facility] MUSE - 11/26/2024 8:15 PM EDT Normal sinus rhythm Normal ECG When compared with ECG of 16-NOV-2024 09:32, Nonspecific T wave abnormality no longer evident in Lateral Confirmed by Tino Gilmore ([id number]) on 11/26/2024 8:15:28 PM Narrative Procedure Note Tino Gilmore MD - 11/26/2024 IMPRESSION: Normal sinus rhythm Normal ECG When compared with ECG of 16-NOV-2024 09:32, Nonspecific T wave abnormality no longer evident in Lateral Confirmed by Tino Gilmore ([id number]) on 11/26/2024 8:15:28 PM Authorizing ProviderResult TypeResult StatusDustin Jean-Paul MDECG ORDERABLESFinal ResultPerforming OrganizationAddressCity/State/ZIP CodePhone Number [facility] * (ABNORMAL) CBC auto differential (11/26/2024 8:05 PM EDT)ComponentValueRef RangeTest MethodAnalysis TimePerformed AtPathologist SignatureAuto WBC5.234.00 - 10.60 10*3/uL11/26/2024 8:18 PM [facility] ([place])RBC3.37(L)3.80 - 5.00 10*6/uL11/26/2024 8:18 PM [facility] ([facility])Hemoglobin9.9 (L)12.0 - 15.0 g/dL11/26/2024 8:18 PM [facility] ([facility])Hematocrit 29.9(L)36.0 - 45.0 %11/26/2024 8:18 PM [facility] ([facility])MCV88.7 82.0 - 98.0 fL11/26/2024 8:18 PM [facility] ([facility] [place])MCH29.427.0 - 33.0 pg11/26/2024 8:18 PM [facility] ([facility])MCHC33.132.0 - 35.0 g/dL11/26/2024 8:18 PM [facility])RDW14.011.5 - 15.0 % 11/26/2024 8:18 PM [facility] ([facility])Neutrophils %44.540.0 - 72.0 % 11/26/2024 8:18 PM [facility] [place])Lymphocytes %40.520.0 - 45.0 % 11/26/2024 8:18 PM [facility] [place])Monocytes %10.95.0 - 12.0 % 11/26/2024 8:18 PM [facility] [place])Eosinophils %3.10.0 - 6.0 % 11/26/2024 8:18 PM [facility] [place])Basophils %0.80.0 - 1.0 % 11/26/2024 8:18 PM [facility] ([facility] [place])Neutrophils Absolute2.331.60 - 7.60 10*3/uL11/26/2024 8:18 PM [facility] [place])Lymphocytes Absolute2.121.20 - 4.00 10*3/uL11/26/2024 8:18 PM [facility])Monocytes Absolute0.570.10 - 1.00 10*3/uL11/26/2024 8:18 PM [facility])Eosinophils Absolute0.160.00 - 0.50 10*3/uL11/26/2024 8:18 PM [facility])Basophils Absolute0.040.00 - 0.20 10*3/uL 11/26/2024 8:18 PM [facility])Adesorllj623842 - 400 10*3/uL 11/26/2024 8:18 PM [facility] [place])nRBC %0.00 %11/26/2024 8:18 PM [facility])Immature Granulocytes %0.20.0 - 1.0 %11/26/2024 8:18 PM [facility])Immature Granulocytes Absolute0.010.00 - 0.20 10*3/uL11/26/2024 8:18 PM [facility] ([facility])Specimen (Source) Anatomical Location / LateralityCollection Method / VolumeCollection Time Received TimeBloodVenous blood specimen / UnknownExisting Catheter / Unknown 11/26/2024 8:05 PM EDT1 8:13 PM EDT Narrative Authorizing ProviderResult TypeResult StatusDustin Jean-Paul ANNIKA BLOOD ORDERABLES Final ResultPerforming OrganizationAddressCity/State/ZIP CodePhone Number [facility]) [address] [place] [address] * HS Troponin I (11/26/2024 8:05 PM EDT)ComponentValueRef RangeTest Method Analysis TimePerformed AtPathologist SignatureHigh Sensitivity Troponin I<2<15 ng/L1 8:42 PM [facility] ([facility])Specimen (Source) Anatomical Location / LateralityCollection Method / VolumeCollection Time Received TimeBloodVenous blood specimen / UnknownExisting Catheter / Unknown 11/26/2024 8:05 PM EDT1 8:13 PM EDT Narrative Authorizing ProviderResult TypeResult StatusDustin Jean-Paulladi ROBLERO BLOOD ORDERABLES Final ResultPerforming OrganizationAddressCity/State/ZIP CodePhone Number [facility]) [address] [place] [address] * Lipase (11/26/2024 8:05 PM EDT)ComponentValueRef RangeTest MethodAnalysis Time Performed AtPathologist VmnoulcohHqnlmj0045 - 82 U/L1 8:36 PM [facility])Specimen (Source)Anatomical Location / Laterality Collection Method / VolumeCollection TimeReceived TimeBloodVenous blood specimen / UnknownExisting Catheter / Ojoergj1311/26/2024 8:05 PM EDT1 8:13 PM EDT Narrative Authorizing ProviderResult TypeResult StatusDustin Jean-Paul ANNIKA BLOOD ORDERABLES Final ResultPerforming OrganizationAddressCity/State/ZIP CodePhone Number [facility] ([facility]) [address] [place] [address] * (ABNORMAL) Comprehensive metabolic panel (11/26/2024 8:05 PM EDT)Component ValueRef RangeTest MethodAnalysis TimePerformed AtPathologist SignatureSodium 311839 - 145 mmol/L1 8:36 PM [facility])Potassium 3.73.5 - 5.1 mmol/L1 8:36 PM [facility])Cjygpizp410 (H)98 - 107 mmol/L1 8:36 PM [facility])WT20843 - 31 mmol/L1 8:36 PM [facility])Anion Gap97 - 20 mmol/L 11/26/2024 8:36 PM [facility] [place])BUN97 - 25 mg/dL11/26/2024 8:36 PM [facility])Creatinine0.59(L)0.60 - 1.20 mg/dL 11/26/2024 8:36 PM [facility])BUN/Creatinine Ratio15.3 11/26/2024 8:36 PM [facility])Esqetca6610 - 100 mg/dL 11/26/2024 8:36 PM [facility])Calcium7.4(L)8.6 - 10.3 mg/dL 11/26/2024 8:36 PM [facility] [place])YVG9052 - 39 U/L1 8:36 PM [facility])ALT (SGPT)127 - 52 U/L1 8:36 PM [facility])Alkaline Fuibqkmwypz4753 - 104 U/L1 8:36 PM [facility])Total Protein5.6(L)6.0 - 8.3 g/dL11/26/2024 8:36 PM [facility])Albumin3.63.5 - 5.7 g/dL11/26/2024 8:36 PM [facility])Total Bilirubin0.2(L)0.3 - 1.0 mg/dL11/26/2024 8:36 PM [facility])cPQH589.5>60.0 mL/min/1.73m* 8:36 PM [facility])Comment:[facility]???s estimated glomerular filtration rate (eGFR) will no longer include consideration of race in its calculation. The [employer]???s eGFR Task Force developed new recommendations for [...] not disproportionately affect any one group of ind ividuals.Specimen (Source)Anatomical Location / LateralityCollection Method / VolumeCollection TimeReceived TimeBloodVenous blood specimen / UnknownExisting Catheter / Amrxlit6711/26/2024 8:05 PM EDT1 8:13 PM EDT Narrative Authorizing ProviderResult TypeResult StatusDustin Jean-Paul ANNIKA BLOOD ORDERABLES Final ResultPerforming OrganizationAddressCity/State/ZIP CodePhone Number [facility]) [address] [place] [address] documented in this encounter Visit Diagnoses Diagnosis Acute UTI- Primary Urinary tract infection, site not specified documented in this encounter Administered Medications Medication OrderMAR ActionAction DateDoseRateSite cefpodoxime (Vantin) tablet 200 mg 200 mg, oral, Once, On 11/26/24 at 2115, For 1 dose, Suspected Indication (Select all that apply): Urinary Tract Infection, Type of Urinary Tract Infection: Uncomplicated Given11/26/2024 9:33 PM MGU985 mg diphenhydrAMINE (BENADryl) injection 25 mg 25 mg, intravenous, Once, On 11/26/24 at 2014, For 1 dose Given11/26/2024 8:31 PM EDT25 mg oxyCODONE-acetaminophen (Percocet) 5-325 mg per tablet 1 tablet 1 tablet, oral, Once, On 11/26/24 at 2114, For 1 dose Given11/26/2024 9:33 PM EDT1 tablet prochlorperazine (Compazine) injection 5 mg 5 mg, intravenous, Once, On 11/26/24 at 2014, For 1 dose, For IVP: give each 5mg or less over 1minute. Given11/26/2024 8:33 PM EDT5 mgdocumented in this encounter Active and Recently Administered Medications Times are shown in EDT.Medication Order//01/2025 cefpodoxime (Vantin) tablet 200 mg (COMPLETED) 200 mg, oral, Once, On 11/26/24 at 2114, For 1 dose, Suspected Indication (Select all that apply): Urinary Tract Infection, Type of Urinary Tract Infection: Uncomplicated * 2132 (Given - Provider: Andie Fletcher RN) diphenhydrAMINE (BENADryl) injection 25 mg (COMPLETED) 25 mg, intravenous, Once, On 11/26/24 at 2014, For 1 dose * 2030 (Given - Provider: Jennifer Wyman, DEE) oxyCODONE-acetaminophen (Percocet) 5-325 mg per tablet 1 tablet (COMPLETED) 1 tablet, oral, Once, On 11/26/24 at 2114, For 1 dose * 2132 (Given - Provider: Andie Fletcher RN) prochlorperazine (Compazine) injection 5 mg (COMPLETED) 5 mg, intravenous, Once, On 11/26/24 at 2014, For 1 dose, For IVP: give each 5mg or less over 1minute. * 2032 (Given - Provider: Jennifer Wyman RN) documented in this encounter Care Teams Team MemberRelationshipSpecialtyStart DateEnd Thomas Alas MD [address] [place], [place] [address] PCP - GeneralFamily Medicine08/17/24documented as of this encounter
--- OUTSIDE RECORDS SUMMARY | 2024-12-02 10:18 | XMS_ITS | Encounter Summary ---
Author Organization [facility] Address [address], [address] [place] [address] Care Team Providers Care Genetic Supervisor Name Role Phone Thomas Alas MD Primary Care Provider [phone] Reason for Visit * ReasonCommentsBack PainHematuriaPt states long cath placed a week ago for difficulty urinating & notes back pain x3 days, hematuria x2 days, notes leaking around long cath, chills, and nausea. Pt denies V/D. Encounter Details DateTypeDepartmentCare Team (Latest Contact Info)Xsizksxbfbo71/18/2025 10:18 AM EDT - 12/02/2024 12:37 [facility] [address] [place], [place] [id number] Gross hematuria (Primary Dx); Painful bladder spasm; [...] Safety Domain Source: IP Abuse ScreeningAnswerDate RecordedPhysical ybumdDuctds78/18/2025 Verbal dipgmNvhtlx76/18/2025Emotional xvqhfLklbdy86/18/2025Financial abuseDenies 12/02/2024Sexual csextXreeqf42/18/2025CommentsNoSex and Gender InformationValueDate RecordedSex Assigned at BirthNot on fileLegal SexFemale 04/12/2013 2:41 PM ESTGender IdentityNot on fileSexual OrientationNot on file documented as of this encounter Last Filed Vital Signs Vital SignReadingTime TakenCommentsBlood Kqqbqxoe431/8512/02/2024 12:36 PM EDT Alfmr571512/02/2024 12:36 PM MAAZowrhzjdnln69.8 ??C (98.2 ??F)12/02/2024 10:14 AM EDTRespiratory Xtbs3605 10:14 AM EDTOxygen Rpqvsdsjjz519%12/02/2024 12:36 PM EDTInhaled Oxygen Concentration--Uhzsoi55.6 kg (180 lb)12/02/2024 10:14 AM HDRPfkvmo548.6 cm (5' 6 )12/02/2024 10:14 AM EDTBody [...] be sent through Care Everywhere. * Hematuria (Faroese) documented in this encounter Medications at Time [...] MG tablet Take 1 tablet by mouth evcvrcz19 ranolazine (RANEXA) 500 MG extended release tablet [...] tablet by mouth 2 times daily as icibat97documented as of this encounter Plan of Treatment Not on file documented as of this encounter Procedures Procedure NamePriorityDate/TimeAssociated DiagnosisCommentsURINALYSIS WITH REFLEX TO ZCDWXPQFJEV75/18/2025 11:54 AM EDT MICROSCOPIC UJRMQOOAIEXkasiof06/18/2025 11:[address] ABDOMEN PELVIS WO QNNDOXOXRZJU66/18/2025 11:30 AM EDT CBC WITH AUTO NCPSEQWGAIQUXHCD75/18/2025 11:12 AM EDT NUYBFPQRWOEHZ13/18/2025 11:12 AM EDT LACTIC HGMZOLEE57/18/2025 11:12 AM EDT COMPREHENSIVE METABOLIC LNOWJGYMO90/18/2025 11:12 AM EDT documented in this encounter Results * Microscopic Urinalysis (12/02/2024 11:54 AM EDT)ComponentValueRef RangeTest MethodAnalysis TimePerformed AtPathologist SignatureWBC, UA2 TO 50 - 5 /HPF 12/02/2024 11:54 AM [facility] LABRBC, UA20 TO 500 - 2 /HPF12/02/2024 11:54 AM [facility] LABEpithelial Cells, UA0 TO 20 - 25 /HPF12/02/2024 11:54 AM [facility] Specimen (Source)Anatomical Location / LateralityCollection Method / Volume Collection TimeReceived Time12/02/2024 11:54 AM EDT1 11:57 AM EDT Narrative Authorizing ProviderResult TypeResult StatusDavid Chris DUNCAN ORDERABLES Final ResultPerforming OrganizationAddressCity/State/ZIP CodePhone Number [facility] [address] [phone] * (ABNORMAL) Urinalysis with Reflex to Culture (12/02/2024 11:54 AM EDT) ComponentValueRef RangeTest MethodAnalysis TimePerformed AtPathologist SignatureColor, UARed(A)Dlouul6612/02/2024 11:54 AM [facility] LABTurbidity OUAvvrsFured15/18/2025 11:54 AM [facility] LABGlucose, UrNEGATIVENEGATIVE mg/dL12/02/2024 11:54 AM [facility] LABBilirubin, QybofNUSOTIOKRVYTPOPR43/18/2025 11:54 AM [facility] LABKetones, UrineNEGATIVENEGATIVE mg/dL 12/02/2024 11:54 AM [facility] LABSpecific [place], UA 1.0101.010 - 1.3524712/02/2024 11:54 AM [facility] LABUrine Hgb3+(A)AWHZAHHM57/18/2025 11:54 AM [facility] LABpH, Urine7.05.0 - 9.010 11:54 AM [facility] Protein, UATRACE(A)NEGATIVE mg/dL12/02/2024 11:54 AM [facility] LABUrobilinogen, UrineNormal0.0 - 1.0 EU/dL12/02/2024 11:54 AM EDT [facility] LABNitrite, LsccvXUIFAEXZTDOYZVHU59/18/2025 11:54 AM [facility] LABLeukocyte Esterase, UrineNEGATIVE HOLRUYMV82/18/2025 11:54 AM [facility] LABSpecimen (Source)Anatomical Location / LateralityCollection Method / VolumeCollection TimeReceived TimeURINE SPECIMEN / Wlhzyao1412/02/2024 11:54 AM EDT1 11:57 AM EDT Narrative Authorizing ProviderResult TypeResult StatusDavid Chris DUNCAN ORDERABLES Final ResultPerforming OrganizationAddressCity/State/ZIP CodePhone Number [facility] [address] [phone] * CT ABDOMEN PELVIS WO CONTRAST Additional [...] AtPathologist SignatureMagnesium1.81.6 - 2.6 mg/dL12/02/2024 11:12 AM [facility] LABSpecimen (Source)Anatomical Location / LateralityCollection Method / VolumeCollection TimeReceived Time BloodBLOOD SPECIMEN / Frbpxug8712/02/2024 11:12 AM EDT1 11:14 AM EDT Narrative Authorizing ProviderResult TypeResult StatusDavid Chris PA-CCHEMISTRY ORDERABLESFinal ResultPerforming OrganizationAddressCity/State/ZIP CodePhone Number [facility] [address] [place] [address] * Lactic Acid (12/02/2024 11:12 AM EDT)ComponentValueRef RangeTest Method Analysis TimePerformed AtPathologist SignatureLactic Acid0.80.5 - 2.2 mmol/L 12/02/2024 11:12 AM [facility] LABSpecimen (Source) Anatomical Location / LateralityCollection Method / VolumeCollection Time Received TimeBloodBLOOD SPECIMEN / Zccfvjw6812/02/2024 11:12 AM EDT1 11:14 AM EDT Narrative Authorizing ProviderResult TypeResult StatusDavid [facility] Centerwilmar PA-CCHEMISTRY ORDERABLESFinal ResultPerforming OrganizationAddressCity/State/[facility] CodePhone Number [facility] [address] [place] [address] * (ABNORMAL) CBC with Auto Differential (12/02/2024 11:12 AM EDT)ComponentValue Ref RangeTest MethodAnalysis TimePerformed AtPathologist SignatureWBC4.43.5 - 11.3 k/uL12/02/2024 11:12 AM [facility] LABRBC3.47(L)3.95 - 5.11 m/uL12/02/2024 11:12 AM [facility] LABHemoglobin 10.1(L)11.9 - 15.1 g/dL12/02/2024 11:12 AM [facility] Ksjkxuxobc13.5(L)36.3 - 47.1 %12/02/2024 11:12 AM [facility] FATAYQ42.982.6 - 102.9 fL12/02/2024 11:12 AM [facility] UMOALI77.125.2 - 33.5 pg12/02/2024 11:12 AM [facility] TUACVPW08.128.4 - 34.8 g/dL12/02/2024 11:12 AM [facility] ZLADOR25.811.8 - 14.4 %12/02/2024 11:12 AM [facility] MCZUfkoguzgl913457 - 453 k/uL12/02/2024 11:12 AM [facility] CPIYOP25.98.1 - 13.5 fL12/02/2024 11:12 AM [facility] LABNRBC Automated0.00.0 per 100 WBC12/02/2024 11:12 AM [facility] LABNeutrophils %71(H)36 - 65 %12/02/2024 11:12 AM [facility] LABLymphocytes %22(L)24 - 43 %12/02/2024 11:12 AM [facility] LABMonocytes %53 - 12 %12/02/2024 11:12 AM [facility] LABEosinophils %11 - 4 %12/02/2024 11:12 AM [facility] LABBasophils %10 - 2 %12/02/2024 11:12 AM [facility] LABImmature Granulocytes %00 %12/02/2024 11:12 AM [facility] LABNeutrophils Absolute3.131.50 - 8.10 k/uL 12/02/2024 11:12 AM [facility] LABLymphocytes Absolute 0.95(L)1.10 - 3.70 k/uL12/02/2024 11:12 AM [facility] Monocytes Absolute0.230.10 - 1.20 k/uL12/02/2024 11:12 AM [facility] LABEosinophils Absolute0.050.00 - 0.44 k/uL12/02/2024 11:12 AM [facility] LABBasophils Absolute0.030.00 - 0.20 k/uL 12/02/2024 11:12 AM [facility] LABImmature Granulocytes Absolute<0.030.00 - 0.30 k/uL12/02/2024 11:12 AM [facility] LABSpecimen (Source)Anatomical Location / LateralityCollection Method / VolumeCollection TimeReceived TimeBloodBLOOD SPECIMEN / Nmcfwep6212/02/2024 11:12 AM EDT1 11:14 AM EDT Narrative Authorizing ProviderResult TypeResult StatusDavid Chris INMAN-CHEMATOLOGY ORDERABLESFinal ResultPerforming OrganizationAddressCity/State/ZIP CodePhone Number [facility] [address] [phone] * (ABNORMAL) CMP (12/02/2024 11:12 AM EDT)ComponentValueRef RangeTest Method Analysis TimePerformed AtPathologist GieklmripOuyzcr893600 - 145 mmol/L 12/02/2024 11:12 AM [facility] LABPotassium3.93.7 - 5.3 mmol/L1 11:12 AM [facility] HVGSujzmscu88229 - 107 mmol/L1 11:12 AM [facility] SADNZ89864 - 31 mmol/L1 11:12 AM [facility] LABAnion Gap99 - 16 mmol/L1 11:12 AM [facility] ZWZHpswuqi6063 - 99 mg/dL12/02/2024 11:12 AM [facility] FVQSQV01 - 20 mg/dL 12/02/2024 11:12 AM [facility] LABCreatinine0.70.50 - 0.90 mg/dL12/02/2024 11:12 AM [facility] LABEst, Glom Filt Rate>90>60 mL/min/1.61r34712/02/2024 11:12 AM [facility] LABComment: ? These results are not intended [...] therapy that affects renal tubular secretion. BUN/Creatinine Ckerm781 - 11:12 AM [facility] LABCalcium8.4(L)8.6 - 10.4 mg/dL12/02/2024 11:12 AM [facility] LABTotal Protein6.0(L)6.6 - 8.7 g/dL12/02/2024 11:12 AM [facility] LABAlbumin3.73.5 - 5.2 g/dL12/02/2024 11:12 AM [facility] LABAlbumin/Globulin Ratio1.61.0 - 2.510 11:12 AM [facility] LABTotal Bilirubin0.30.00 - 1.20 mg/dL12/02/2024 11:12 AM [facility] LABAlkaline Osgntprgxrq5692 - 104 U/L 12/02/2024 11:12 AM [facility] PNNQPK29(H)10 - 35 U/L 12/02/2024 11:12 AM [facility] GLSKJA34(H)10 - 35 U/L 12/02/2024 11:12 AM [facility] LABSpecimen (Source) Anatomical Location / LateralityCollection Method / VolumeCollection Time Received TimeBloodBLOOD SPECIMEN / Oflxaer2612/02/2024 11:12 AM EDT1 11:14 AM EDT Narrative Authorizing ProviderResult TypeResult StatusDavid Chris GONZALEZMERCY HOSPITALEMISTRY ORDERABLESFinal ResultPerforming OrganizationAddressCity/State/ZIP CodePhone Number [facility] [address] [place] [address], [facility] [phone] documented in this encounter Visit Diagnoses Diagnosis [...] 1 dose New Bag12/02/2024 11:14 AM EDT1,000 jCh983.9 mL/hrdocumented in this encounter Active and Recently [...] MemberRelationshipSpecialtyStart DateEnd Thomas Alas MD [address] [phone] PCP - GeneralFamily Medicine11/08/24documented as of this encounter
--- OUTSIDE RECORDS SUMMARY | 2024-12-04 14:32 | XMS_ITS | Encounter Summary ---
Author Organization [facility] 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 Followed up with her urologist in [place] and scheduled for removal this Wednesday. Started having severe pain and increased bleeding with clots over the weekend. Called back to urology and sent to ER. Encounter Details DateTypeDepartmentCare Team (Latest Contact Info)Gvohekijkib18/20/2025 2:32 PM EDT - 12/04/2024 6:24 PM [facility] [address] [place], [place] [id number] Hematuria, unspecified type (Primary Dx) Discharge Disposition: Home or Self Care Social [...] do you have a drink containing alcohol?Never 12/04/2024Q2: How many drinks containing alcohol do you have on a typical day when you are drinking?Patient does not drink12/04/2024Q3: How often do you have six or more drinks on one occasion?Never12/04/2024Interpersonal Safety Domain Source: IP Abuse ScreeningAnswerDate RecordedPhysical gzgnbOjkfta95/18/2025 Verbal bqrhzQnejnn34/18/2025Emotional byqcmRaeezh53/18/2025Financial abuseDenies 12/02/2024Sexual qqeauBrkynt74/18/2025CommentsNoSex and Gender InformationValueDate RecordedSex Assigned at BirthNot on fileLegal SexFemale 04/12/2013 2:41 PM ESTGender IdentityNot on fileSexual OrientationNot on file documented as of this encounter Last Filed Vital Signs Vital SignReadingTime TakenCommentsBlood Usywtprh796/4612/04/2024 6:01 PM EDT Baoli256212/04/2024 2:30 PM CAEYecsezojmmn66.7 ??C (98.1 ??F)12/04/2024 2:30 PM EDTRespiratory Osde5339 2:30 PM EDTOxygen Ozwzvjwqji28%12/04/2024 6:01 PM EDTInhaled Oxygen Concentration--Weight--Height--Body Mass Index--documented in this encounter Functional Status documented as of this encounter Discharge Instructions * Discharge Instructions* Neeta Marion APRN - CNP - 12/04/2024 6:17 PM EDT Continue the antibiotics, you may use Pyridium for the next 2 days and follow-up with urology as previously arranged. Please keep the catheter securely attached to your leg to prevent additional trauma to your bladder. * Attachments The following attachments cannot be sent through Care Everywhere. * Hematuria (Hungarian) documented in this encounter Medications at Time [...] MG tablet Take 1 tablet by mouth / ranolazine (RANEXA) 500 MG extended release tablet [...] needed for Pain (bladder spasm/pain) 6 tablet documented as of this encounter Plan of Treatment NameTypePriorityAssociated DiagnosesDate/TimeCulture, UrineMicrobiologySTAT 12/04/2024 2:55 PM EDTdocumented as of this encounter Procedures Procedure NamePriorityDate/TimeAssociated DiagnosisCommentsCT UROGRAMSTAT 12/04/2024 4:29 PM EDT MICROSCOPIC GRACGFSKKFEtjtnuh30/20/2025 2:55 PM EDT OJEBIWAVQUIEUK92/20/2025 2:55 PM EDT CULTURE, BNMROANYT91/20/2025 2:55 PM EDTCBC WITH AUTO TYIRQNASINLDJFKR00/20/2025 2:53 PM EDT PROTIME-PZKWMAD5712/04/2024 2:53 PM EDT BASIC METABOLIC XGRTSTJXB38/20/2025 2:53 PM EDT documented in this encounter Results * CT UROGRAM (12/04/2024 4:29 PM EDT)Anatomical RegionLateralityModalityAbdomen, PelvisComputed TomographySpecimen (Source)Anatomical Location / Laterality Collection Method / VolumeCollection TimeReceived Time12/04/2024 5:40 PM EDT Impressions 12/04/2024 5:50 PM EDT 1. ??Punctate nonobstructing right lower pole intrarenal calculus. ??No ureteral calculi or obstructive uropathy is noted. 2. ??No filling defects or other abnormalities within either pelvocaliceal collecting system or the right ureter. ??Only the very proximal and distal left ureter was well filled with excreted contrast and these portions appear also unremarkable. 3. ??Probable mild degree of cecal and left colon through sigmoid colon constipation. ??Otherwise nonspecific bowel gas pattern. 4. ??Mild splenomegaly with the spleen measuring 13.1 cm in transverse dimension and unchanged. 5. ??Air noted within the subcutaneous fat with some surrounding isodensity in the left anterior abdominal wall but without definitive evidence of bowel to confirm an ostomy. ??This may represent a prior ostomy tract, correlate clinically. 6. ??Otherwise no acute pathology or significant change noted. Narrative 12/04/2024 5:50 PM EDT EXAM: CT Abdomen and Pelvis Without and With Intravenous Contrast EXAM DATE/TIME: 12/04/2024 4:29 pm CLINICAL HISTORY: ORDERING SYSTEM PROVIDED HISTORY: hematuria ??TECHNOLOGIST PROVIDED HISTORY: hematuria Additional Contrast?->1 TECHNIQUE: Axial computed tomography images of the abdomen and pelvis without and with intravenous contrast. ??This CT exam was performed using one or more of the following dose reduction techniques: ??automated exposure control, adjustment of the mA and/or kV according to patient size, and/or use of iterative reconstruction technique. COMPARISON: 12/02/2024 FINDINGS: Lung bases: ??No acute findings. ??No mass. ??No consolidation. ABDOMEN: Liver: ??Multiple simple appearing hepatics cysts requiring no additional follow-up. Gallbladder and bile ducts: ??Cholecystectomy. ??No ductal dilation. Pancreas: ??No acute findings. ??No mass. ??No ductal dilation. Spleen: ??Mild splenomegaly with the spleen measuring 13.1 cm in transverse dimension and unchanged. Adrenals: ??No acute findings. ??No mass. Kidneys and ureters: ??Punctate nonobstructing right lower pole intrarenal calculus. ??No ureteral calculi or obstructive uropathy is noted. ??No filling defects or other abnormalities within either pelvocaliceal collecting system or the right ureter. ??Only the very proximal and distal left ureter was well filled with excreted contrast and these portions appear also unremarkable. Stomach and bowel: ??Probable mild degree of cecal and left colon through sigmoid colon constipation. ??Otherwise nonspecific bowel gas pattern. Evidence of prior gastric bypass surgery. PELVIS: Appendix: ??Changes at the cecal tip consistent with prior appendectomy. Bladder: ??Long catheter noted within the urinary bladder, likely accounting for air noted within the urinary bladder. ??No stones. Reproductive: ??Unremarkable as visualized. ABDOMEN and PELVIS: Intraperitoneal space: ??No acute findings. ??No free air. ??No significant fluid collection. Bones/joints: ??No acute fracture. ??No dislocation. Soft tissues: ??Air noted within the subcutaneous fat with some surrounding isodensity in the left anterior abdominal wall but without definitive evidence of bowel to confirm an ostomy. ??This may represent a prior ostomy tract, correlate clinically. Vasculature: ??No acute findings. ??No abdominal aortic aneurysm. Lymph nodes: ??No acute findings. ??No enlarged lymph nodes. Procedure Note David Crenshaw MD - 12/04/2024 EXAM: CT Abdomen and Pelvis Without and With Intravenous Contrast EXAM DATE/TIME: 12/04/2024 4:29 pm CLINICAL HISTORY: ORDERING SYSTEM PROVIDED HISTORY: hematuria TECHNOLOGIST PROVIDEDHISTORY: hematuria Additional Contrast?->1 TECHNIQUE: Axial computed tomography images of the abdomen and pelvis without andwith intravenous contrast. This CT exam was performed using one or more ofthe following dose reduction techniques: automated exposure control,adjustment of the mA and/or kV according to patient size, and/or use of iterative reconstruction technique. COMPARISON: 12/02/2024 FINDINGS: Lung bases: No acute findings. No mass. No consolidation. ABDOMEN: Liver: Multiple simple appearing hepatics cysts requiring no additional follow-up. Gallbladder and bile ducts: Cholecystectomy. No ductal dilation. Pancreas: No acute findings. No mass. No ductal dilation. Spleen: Mild splenomegaly with the spleen measuring 13.1 cm intransverse dimension and unchanged. Adrenals: No acute findings. No mass. Kidneys and ureters: Punctate nonobstructing right lower poleintrarenal calculus. No ureteral calculi or obstructive uropathy is noted. Nofilling defects or other abnormalities within either pelvocaliceal collectingsystem or the right ureter. Only the very proximal and distal left ureter waswell filled with excreted contrast and these portions appear alsounremarkable. Stomach and bowel: Probable mild degree of cecal and left colon through sigmoid colon constipation. Otherwise nonspecific bowel gas pattern. Evidence of prior gastric bypass surgery. PELVIS: Appendix: Changes at the cecal tip consistent with prior appendectomy. Bladder: Long catheter noted within the urinary bladder, likelyaccounting for air noted within the urinary bladder. No stones. Reproductive: Unremarkable as visualized. ABDOMEN and PELVIS: Intraperitoneal space: No acute findings. No free air. No significant fluid collection. Bones/joints: No acute fracture. No dislocation. Soft tissues: Air noted within the subcutaneous fat with somesurrounding isodensity in the left anterior abdominal wall but without definitive evidence of bowel to confirm an ostomy. This may represent a priorostomy tract, correlate clinically. Vasculature: No acute findings. No abdominal aortic aneurysm. Lymph nodes: No acute findings. No enlarged lymph nodes. IMPRESSION: 1. Punctate nonobstructing right lower pole intrarenal calculus. No ureteral calculi or obstructive uropathy is noted. 2. No filling defects or other abnormalities within eitherpelvocaliceal collecting system or the right ureter. Only the very proximal anddistal left ureter was well filled with excreted contrast and these portionsappear also unremarkable. 3. Probable mild degree of cecal and left colon through sigmoid colon constipation. Otherwise nonspecific bowel gas pattern. 4. Mild splenomegaly with the spleen measuring 13.1 cm in transverse dimension and unchanged. 5. Air noted within the subcutaneous fat with some surrounding isodensityin the left anterior abdominal wall but without definitive evidence of bowelto confirm an ostomy. This may represent a prior ostomy tract, correlate clinically. 6. Otherwise no acute pathology or significant change noted. Authorizing ProviderResult TypeResult StatusMarciemily Marion AUTOMOTIVE MAINTENANCE TECHNICIAN - CNPIMG CT ORDERABLESFinal Result * (ABNORMAL) Microscopic Urinalysis (12/04/2024 2:55 PM EDT)ComponentValueRef RangeTest MethodAnalysis TimePerformed AtPathologist SignatureWBC, UA2 TO 50 - 5 /HPF12/04/2024 2:[address] [facility] LABRBC, UAGREATER THAN 1000 - 2 /HPF12/04/2024 2:[address] [facility] Epithelial Cells, UA0 TO 20 - 25 /HPF12/04/2024 2:[address] [facility] LABBacteria, UA2+(A)None12/04/2024 2:[address] [facility] LABSpecimen (Source)Anatomical Location / LateralityCollection Method / VolumeCollection TimeReceived Time12/04/2024 2:55 PM EDT1 3:03 PM EDT Narrative Authorizing ProviderResult TypeResult StatusMarciemily Marion AUTOMOTIVE MAINTENANCE TECHNICIAN - CNPURINE ORDERABLESFinal ResultPerforming OrganizationAddressCity/State/ZIP CodePhone Number [facility] [address] [phone] * (ABNORMAL) Urinalysis (12/04/2024 2:55 PM EDT)ComponentValueRef RangeTest MethodAnalysis TimePerformed AtPathologist SignatureColor, UARed(A)Yellow 12/04/2024 2:[address] [facility] LABTurbidity UAClearClear 12/04/2024 2:[address] [facility] LABGlucose, UrNEGATIVE NEGATIVE mg/dL12/04/2024 2:[address] [facility] LABBilirubin, RyarlSTSZHGOUAFTGVQOV25/20/2025 2:[address] [facility] Ketones, Urine1+(A)NEGATIVE mg/dL12/04/2024 2:[address] [facility] LABSpecific [place], UA1.0201.010 - 1.5903512/04/2024 2:[address] [facility] LABUrine Hgb3+(A)KUXDCMMW76/20/2025 2:[address] [facility] LABpH, Urine7.05.0 - 9.010 2:[address] [facility] LABProtein, UA2+(A)NEGATIVE mg/dL12/04/2024 2:55 PM EDT [facility] LABUrobilinogen, UrineELEVATED0.0 - 1.0 EU/dL 12/04/2024 2:[address] [facility] LABNitrite, UrinePOSITIVE (A)QBNGSPGK97/20/2025 2:[address] [facility] LABLeukocyte Esterase, UrineSMALL(A)PVIOBBTB58/20/2025 2:[address] [facility] LABSpecimen (Source)Anatomical Location / LateralityCollection Method / VolumeCollection TimeReceived TimeUrineURINE SPECIMEN / Pqtdrrw1312/04/2024 2:55 PM EDT1 3:03 PM EDT Narrative Authorizing ProviderResult TypeResult StatusNeeta Marion APRN - CNPURINE ORDERABLESFinal ResultPerforming OrganizationAddressCity/State/ZIP CodePhone Number [facility] [address] [place] [address] * Protime-INR (12/04/2024 2:53 PM EDT)ComponentValueRef RangeTest MethodAnalysis TimePerformed AtPathologist AfhnrgscxHjgnpmf58.112.0 - 15.0 sec12/04/2024 2:[address] [facility] LABINR1. 2:[address] [facility] LABComment: ? Therapeutic Range: Moderate Anticoagulant Intensity: INR = 2.0-3.0 High Anticoagulant Intensity: INR = 2.5-3.5 Specimen (Source)Anatomical Location / LateralityCollection Method / Volume Collection TimeReceived TimeBloodBLOOD SPECIMEN / Ekmvnqu5512/04/2024 2:53 PM EDT 12/04/2024 3:02 PM EDT Narrative Authorizing ProviderResult TypeResult StatusNeeta Marion AUTOMOTIVE MAINTENANCE TECHNICIAN - MANAGER OF HUMAN RESOURCES HEMATOLOGY ORDERABLESFinal ResultPerforming OrganizationAddressCity/State/ZIP CodePhone Number [facility] [address] [place] [address] * (ABNORMAL) BMP (12/04/2024 2:53 PM EDT)ComponentValueRef RangeTest Method Analysis TimePerformed AtPathologist WxnzoynfnTxusto755034 - 145 mmol/L 12/04/2024 2:[address] [facility] LABPotassium3.93.7 - 5.3 mmol/L1 2:[address] [facility] CELClwqtiae401(H)98 - 107 mmol/L1 2:[address] [facility] ZAJMY39554 - 31 mmol/L1 2:[address] [facility] LABAnion Gap8(L)9 - 16 mmol/L1 2:[address] [facility] EKRHoprmld1495 - 99 mg/dL12/04/2024 2:[address] [facility] OBUTBT72 - 20 mg/dL 12/04/2024 2:[address] [facility] LABCreatinine0.60.50 - 0.90 mg/dL12/04/2024 2:[address] [facility] LABEst, Glom Filt Rate >90>60 mL/min/1.45n45112/04/2024 2:[address] [facility] Comment: ? These results are not [...] therapy that affects renal tubular secretion. BUN/Creatinine Zzhtr931 - 2:[address] [facility] LABCalcium8.2(L)8.6 - 10.4 mg/dL12/04/2024 2:[address] [facility] LABSpecimen (Source)Anatomical Location / LateralityCollection Method / VolumeCollection TimeReceived TimeBloodBLOOD SPECIMEN / Seoqujd5012/04/2024 2:53 PM EDT1 3:02 PM EDT Narrative Authorizing ProviderResult TypeResult StatusMarpapa Emily Doni AUTOMOTIVE MAINTENANCE TECHNICIAN - CNPCHEMISTRY ORDERABLESFinal ResultPerforming OrganizationAddressCity/State/ZIP CodePhone Number [facility] [address] [id number], [place] [phone] * (ABNORMAL) CBC with Auto Differential (12/04/2024 2:53 PM EDT)ComponentValue Ref RangeTest MethodAnalysis TimePerformed AtPathologist SignatureWBC4.13.5 - 11.3 k/uL12/04/2024 2:[address] [facility] LABRBC3.21(L)3.95 - 5.11 m/uL12/04/2024 2:[address] [facility] LABHemoglobin9.4 (L)11.9 - 15.1 g/dL12/04/2024 2:[address] [facility] Zimebppdcu18.2(L)36.3 - 47.1 %12/04/2024 2:[address] [facility] PRIWQA54.982.6 - 102.9 fL12/04/2024 2:[address] [facility] SESQNZ32.325.2 - 33.5 pg12/04/2024 2:[address] [facility] GKTBJYF19.328.4 - 34.8 g/dL12/04/2024 2:[address] [facility] ZMMTCX75.711.8 - 14.4 %12/04/2024 2:[address] [facility] JNGEyeyngbgo665432 - 453 k/uL12/04/2024 2:[address] [facility] HGYMAL15.68.1 - 13.5 fL12/04/2024 2:[address] [facility] LABNRBC Automated0.00.0 per 100 WBC12/04/2024 2:[address] [facility] LABNeutrophils %5136 - 65 %12/04/2024 2:[address] [facility] LABLymphocytes %3724 - 43 %12/04/2024 2:[address] [facility] LABMonocytes %93 - 12 %12/04/2024 2:[address] [facility] LABEosinophils %21 - 4 %12/04/2024 2:[address] [facility] LABBasophils %10 - 2 %12/04/2024 2:[address] [facility] LABImmature Granulocytes %00 %12/04/2024 2:53 PM EDT [facility] LABNeutrophils Absolute2.091.50 - 8.10 k/uL 12/04/2024 2:[address] [facility] LABLymphocytes Absolute1.49 1.10 - 3.70 k/uL12/04/2024 2:[address] [facility] Monocytes Absolute0.360.10 - 1.20 k/uL12/04/2024 2:[address] [facility] LABEosinophils Absolute0.080.00 - 0.44 k/uL12/04/2024 2:[address] [facility] LABBasophils Absolute0.040.00 - 0.20 k/uL 12/04/2024 2:[address] [facility] LABImmature Granulocytes Absolute<0.030.00 - 0.30 k/uL12/04/2024 2:[address] [facility] LABSpecimen (Source)Anatomical Location / LateralityCollection Method / VolumeCollection TimeReceived TimeBloodBLOOD SPECIMEN / Ltccoyv4812/04/2024 2:53 PM EDT1 3:02 PM EDT Narrative Authorizing ProviderResult TypeResult StatusNeeta Marion APRN - BETH HEMATOLOGY ORDERABLESFinal ResultPerforming OrganizationAddressCity/State/ZIP CodePhone Number [facility] [address] [id number], [place] [phone] documented in this encounter Visit Diagnoses Diagnosis Hematuria, unspecified type- Primary documented in this encounter Administered Medications Medication OrderMAR ActionAction DateDoseRateSite diphenhydrAMINE (BENADRYL) injection 25 mg 25 mg, IntraVENous, ONCE, 1 dose, On Wed12/04/24 at 1630, IV Push at rate not to exceed 25 mg/min. Given12/04/2024 4:41 PM EDT25 mg iopamidol (ISOVUE-370) 76 % injection 120 mL 120 mL, IntraVENous, IMG ONCE PRN, 1 dose, Starting on Wed12/04/24 at 1629, Until Wed12/04/24 at 1630, Other Given12/04/2024 4:30 PM UTY136 mLs ondansetron (ZOFRAN) injection 4 mg 4 mg, IntraVENous, ONCE, 1 dose, On Wed12/04/24 at 1515 Given12/04/2024 3:46 PM EDT4 mg phenazopyridine (PYRIDIUM) tablet 200 mg 200 mg, Oral, Once, 1 dose, On Wed12/04/24 at 1815, Take with food. May cause discoloration of urine. Given12/04/2024 6:18 PM JGJ556 mg prochlorperazine (COMPAZINE) injection 10 mg 10 mg, IntraVENous, ONCE, 1 dose, On Wed12/04/24 at 1630 Given12/04/2024 4:41 PM EDT10 mg traMADol (ULTRAM) tablet 50 mg 50 mg, Oral, ONCE, 1 dose, On Wed12/04/24 at 1515 Given12/04/2024 3:46 PM EDT50 mgdocumented in this encounter Active and Recently Administered Medications Times are shown in EDT.Medication Order/ diphenhydrAMINE (BENADRYL) injection 25 mg (COMPLETED) 25 mg, IntraVENous, ONCE, 1 dose, On Wed12/04/24 at 1630, IV Push at rate not to exceed 25 mg/min. * 1641 (Given - Provider: Nahed Suero RN) ondansetron (ZOFRAN) injection 4 mg (COMPLETED) 4 mg, IntraVENous, ONCE, 1 dose, On Wed12/04/24 at 1515 * 1546 (Given - Provider: Nahed Suero RN) phenazopyridine (PYRIDIUM) tablet 200 mg (COMPLETED) 200 mg, Oral, Once, 1 dose, On Wed12/04/24 at 1815, Take with food. May cause discoloration of urine. * 1818 (Given - Provider: Nahed Suero RN) prochlorperazine (COMPAZINE) injection 10 mg (COMPLETED) 10 mg, IntraVENous, ONCE, 1 dose, On Wed12/04/24 at 1630 * 1641 (Given - Provider: Nahed Suero RN) traMADol (ULTRAM) tablet 50 mg (COMPLETED) 50 mg, Oral, ONCE, 1 dose, On Wed12/04/24 at 1515 * 1546 (Given - Provider: Nahed Suero RN) Medication Order/ iopamidol (ISOVUE-370) 76 % injection 120 mL (COMPLETED) 120 mL, IntraVENous, IMG ONCE PRN, 1 dose, Starting on Wed12/04/24 at 1629, Until Wed12/04/24 at 1630, Other * 1630 (Given - Provider: Philippe Casas) documented in this encounter Care Teams Team MemberRelationshipSpecialtyStart DateEnd Thomas Alas MD [address] [place] [address] PCP - GeneralFamily Medicine11/08/24documented as of this encounter
--- OUTSIDE RECORDS SUMMARY | 2024-12-06 11:20 | XMS_ITS | Encounter Summary ---
Author Organization [facility] Address [address] [place] [address] Care Team Providers Care Funeral Attendant Name Role Phone Thomas Alas MD Primary Care Provider [phone] Reason for Visit * ReasonCommentsFollow-upPatient is here today for a follow up [facility] admission and for surgery clearance. Patient is having an ERCP with Dr. Bellamy at [facility]. Needs to stop plavix for 5 days.Chest PainChest pain with and without activity HypertensionHyperlipidemiaNSTEMISpontaneous dissection of the coronary artery Congestive Heart FailureIdiopathic hypotensionFatiguePatient states she has extreme fatigue.Shortness of BreathIncreased sob/doeDizziness Dizziness/lightheaded with position changes Encounter Details DateTypeDepartmentCare Team (Latest Contact Info)Kguxovqzlfv96/22/2025 11:20 AM EDTOffice Visit [facility] Heart at [facility] [address] [place] [phone] Wali Collins MD [address] [place] [phone] Spontaneous dissection of coronary artery (Primary Dx); Other fatigue; Precordial pain; Anemia due to acute blood loss Social History Tobacco UseTypesPacks/DayYears UsedDateSmoking Tobacco: NeverSmokeless Tobacco: NeverAlcohol UseStandard Drinks/WeekCommentsNot Currently0 (1 standard drink = 0.6 oz pure alcohol)[facility] UtilitiesAnswerDate RecordedIn the past 12 months [...] homeless or living in a correction (including now)?No11/15/2024Hunger Vital SignAnswerDate RecordedWithin the past 12 months, you worried that your food would run out before you got the money to buymore.Never true11/15/2024Ran Out of Food in the Last YearNot on file 11/15/2024CommentsNoSex and Gender InformationValueDate RecordedSex Assigned at TnyexKotwnr43/03/2025 3:45 PM EDTLegal TwuJturtu17/30/2022 12:07 AM EDTGender HciqjkwuYxobqd37/03/2025 3:45 PM EDTSexual OrientationHeterosexual or Yfhinfgh18/03/2025 3:45 PM EDTdocumented as of this encounter Last Filed Vital Signs Vital SignReadingTime TakenCommentsBlood Hfvihlwi466/6012/06/2024 11:10 AM EDT Djyrp336212/06/2024 11:10 AM EDTTemperature--Respiratory Rate--Oxygen Saturation 99%12/06/2024 11:10 AM EDTInhaled Oxygen Concentration--Weight--Xlhukg113.6 cm (5' 6 )12/06/2024 11:10 AM EDTBody Mass Index--documented in this encounter Functional Status * BPAnswerDate of PtmffkejigJcpsae945/60/ 11:10 AM EDNadia Le MA * PulseAnswerDate of IujrsmgocbBuhpac8803/22/2025 11:10 AM EDNadia Le MA * Patient PositionAnswerDate of XpaxszoguzOqhxuxNqmrhza55/22/2025 11:10 AM EDT Nadia Gagnon MA * BPAnswerDate of OkafqbdddzCmuhyr994/6012/06/2024 11:10 AM EDNadia Le MA * PulseAnswerDate of XduegbswbwJmbpmz6041/22/2025 11:10 AM Nadia Ortega MA * ZeZ3SudawsOdlz of QmkybilobtIodwej3628/22/2025 11:10 AM Nadia Ortega MA * BP LocationAnswerDate of AssessmentAuthorLeft arm12/06/2024 11:10 AM EDT Nadia Gagnon MA * Patient PositionAnswerDate of SeexdfvrjrMhjtafMxlaocu13/22/2025 11:10 AM EDT Nadia Gagnon MA documented as of this encounter Progress Notes * Wali Collins MD - 12/06/2024 11:20 AM EDT Subjective Patient ID: Abbey Garcia is a 34 y.o. female who presents for Follow-up (Patient is here today for a follow up [facility] admission and for surgery clearance. Patient is having an ERCP with Dr. Bellamy at [facility]. Needs to stop plavix for 5 days.), [...] Plan of Treatment DateTypeDepartmentCare Team (Latest Contact Info)Qgjsdvjgsud71/30/2025 9:00 AM EDTAppointment [facility] Endoscopy [address] [place] [address] Braxton Bellamy MD [address] [facility] [address] [facility] [place] [phone] 12/14/2024 10:30 AM EDTAppointment [facility] X-Ray Imaging [address] [place] [phone] 01/31/2025 11:00 AM ESTOffice Visit [facility] Heart at [facility] [address] [place] [phone] Wali Collins MD [address] [place] [phone] NameTypePriorityAssociated DiagnosesOrder ScheduleIron and TIBCLabRoutine Anemia due to acute blood loss Expected: 12/06/2024 (Approximate), Expires: 12/06/2025documented as of this encounter Visit Diagnoses Diagnosis Spontaneous dissection of coronary artery- Primary Other fatigue Precordial pain Anemia due to acute blood loss Acute posthemorrhagic anemia documented in this encounter Care Teams Team MemberRelationshipSpecialtyStart DateEnd Date Thomas Alas MD [address] [facility] [address] [address] PCP - GeneralFamily Medicine08/17/24documented as of this encounter
--- OUTSIDE RECORDS SUMMARY | 2024-12-06 12:10 | XMS_ITS | Clinical Summary ---
Author Organization [facility] Address [address] [place] [id number] Care Team Providers Care Manager Tax Name Role Phone Mateusz Rosales MD Unavailable [phone] Source Comments The following information is NOT included in Care Everywhere downloads:Psychiatric notes, ECG results, Cardiac Rehab notes, Pulmonary Function notes, data from SmartForms (includes but not limited toPregnancy data,audiograms, eye exams, pre-surgical evaluation notes, well-child exam data).[facility] Medications No known medications Active Problems ProblemNoted DateDiagnosed DateMedian arcuate ligament peqmpokr97/02/2025 Assessment & Plan (10/09/2024 2:29 PM EDT): [...] include prior laparotomy and open repair Encounters DateTypeDepartmentCare NjopCwopobtxocf14/25/2025 1:45 PM EDTTelemedicine [facility] Oncology Surgical [address] [phone] Mateusz Rosales MD Median arcuate ligament syndrome (HCC) (Primary Dx)10/09/20249622Tycsti77/21/2025 Telephone [facility] Surgery General [address] [place], [place] [phone] Mateusz Rosales MD from Last 3 Months Immunizations ImmunizationAdministration DatesNext DueInfluenza, injectable, quadrivalent, preservative free (IBN=776)11/12/2022,11/16/2021,12/25/2020Influenza, unspecified formulation (CVX=88)01/01/2021,11/28/2018 Social History Tobacco UseTypesPacks/DayYears UsedDateSmoking Tobacco: NeverSmokeless Tobacco: Never Tobacco Cessation:Counseling Given: Not Answered CommentsUnknownSex and Gender InformationValueDate RecordedSex Assigned at BirthNot on fileLegal KueKgyxmm54/23/2024 2:52 PM ESTGender IdentityNot on fileSexual OrientationNot on file Last Filed Vital Signs Vital SignReadingTime TakenCommentsBlood Fdnxodxg758/7306 2:27 PM EDT Pdfmu1150 2:27 PM UOILqzbpbczyfy79.4 ??C (97.5 ??F)07/17/2024 2:27 PM EDTRespiratory Ktqy149107/17/2024 2:27 PM EDTOxygen Kicgcgijgl95%07/17/2024 2:27 PM EDTInhaled Oxygen Concentration--Xkdowd08.5 kg (192 lb 12.8 oz)07/17/2024 2:27 PM EDTHeight--Body Mass Index-- Plan of Treatment Health MaintenanceDue DateLast DoneCommentsMammography (shared decision-making, age 35-39)1989HIV Test2004Hepatitis C Dygontdo15/17/2008Tdap Booster 2007Hepatitis A (HAV) Vaccine (optional start 19+ years)2008 Hepatitis B (HBV) Vaccine (1 of 3 - 19+ 3-dose series)2008HPV Vaccine (optional start 27-45 years)2016Pap Smear04//OVID-19 Vaccine (2024- season)501/05/2021, 06/23/2020Influenza Vaccine (#1)509/, 11/16/2021, 01/01/2021, Additional history exists Shingles (RZV) Vaccine (1 of 2)2039MammographyDiscontinuedPneumococcal Vaccine(s)Aged OutNo longer eligible based on patient's age to complete this topic Insurance * Guarantor: Corby Garcia TypeRelation to PatientDate of BirthPhoneBilling AddressPersonal/TqtlqfCtho49/17[birth year][id number] [place] [phone] Care Teams Team MemberRelationshipSpecialtyStart DateEnd Date Mateusz Rosales MD [address] [place] [id number] PhysicianGeneral Surgery05/20/24
--- OUTSIDE RECORDS SUMMARY | 2024-12-06 12:10 | XMS_ITS | Encounter Summary ---
Author Organization [facility] Address [address] [place] [address] Care Team Providers Care Pediatric Cardiologist Name Role Phone Thomas Alas MD Primary Care Provider [phone] Encounter Details DateTypeDepartmentCare Team (Latest Contact Info)Qfpcgusordl10/21/2025Orders Only [facility] Heart at [facility] [address] [place] [address] Provider, MD Siri [address] [place], [place] [phone] Social History Tobacco UseTypesPacks/DayYears UsedDateSmoking Tobacco: NeverSmokeless Tobacco: NeverAlcohol UseStandard Drinks/WeekCommentsNot Currently0 (1 standard drink = 0.6 oz pure alcohol)[facility] UtilitiesAnswerDate RecordedIn the past 12 months has [...] or living in a nursing home (including now)?No11/15/2024Hunger Vital SignAnswerDate RecordedWithin the past 12 months, you worried that your food would run out before you got the money to buymore.Never true11/15/2024Ran Out of Food in the Last YearNot on file 11/15/2024CommentsNoSex and Gender InformationValueDate RecordedSex Assigned at OejcmRocizm60/03/2025 3:45 PM EDTLegal RzmDkgcbx31/30/2022 12:07 AM EDTGender UixqopjzTrscbl96/03/2025 3:45 PM EDTSexual OrientationHeterosexual or Losvjqxd77/03/2025 3:45 PM EDTdocumented as of this encounter Functional Status * BPAnswerDate of XyluanfqicSryohf969/6012/06/2024 11:10 AM Nadia Ortega MA * PulseAnswerDate of PsfmhfvgkuBijjsf8061/22/2025 11:10 AM Nadia Ortega MA * Patient PositionAnswerDate of OrfooelcptMyqntlOvdwrnj10/22/2025 11:10 AM EDT Nadia Gagnon MA * BPAnswerDate of WpxlpkhwkjRhroeo528/6012/06/2024 11:10 AM Nadia Ortega MA * PulseAnswerDate of NnthtczlqrCvigvx4619/22/2025 11:10 AM Nadia Ortega MA * GaH9JboiddPgsn of EvbsgwkyvqZlgufy6411/22/2025 11:10 AM Nadia Ortega MA * BP LocationAnswerDate of AssessmentAuthorLeft arm12/06/2024 11:10 AM EDT Nadia Gagnon MA * Patient PositionAnswerDate of GtmopaaklzPumtdqYxjfqtn59/22/2025 11:10 AM EDT Nadia Gagnon MA documented as of this encounter Plan of Treatment DateTypeDepartmentCare Team (Latest Contact Info)Ltjdikoryri16/30/2025 9:00 AM EDTAppointment [facility] [place] [facility] [address] [place] [address] Braxton Bellamy MD [address] [facility] [address] [facility] [place] [place] [address] 12/14/2024 10:30 AM EDTAppointment [facility] X-Ray Imaging [address] [place] [address] 01/31/2025 11:00 AM ESTOffice Visit [facility] [address] [place] [address] Wali Collins MD [address] [place] [address] documented as of this encounter Procedures Procedure NamePriorityDate/TimeAssociated DiagnosisCommentsCOMPLETE TRANSTHORACIC ECHO (TTE) W/WO IMAGING AGENT, STRAIN, 3D, BUBBLE STUDYRoutine 09/01/2024 3:12 PM EDTdocumented in this encounter Results * Complete Echo (TTE) w/wo Imaging Agent, Strain, 3D, Bubble Study (09/01/2024 3:12 PM EDT)Anatomical RegionLateralityModalityUltrasound Narrative Authorizing ProviderResult TypeResult StatusHistorical Provider [facility] ECHO PROCEDURESFinal Result documented in this encounter Visit Diagnoses Not on filedocumented in this encounter Care Teams Team MemberRelationshipSpecialtyStart DateEnd Date Thomas Alas MD [address] [facility] [address] [address] PCP - GeneralFamily Medicine08/17/24documented as of this encounter
--- OUTSIDE RECORDS SUMMARY | 2024-12-06 12:11 | XMS_ITS | Encounter Summary ---
Author Organization [facility] Address [address] [place] [address] Care Team Providers Care Ear Nose And Throat Specialist Name Role Phone Thomas Alas MD Primary Care Provider [phone] Encounter Details DateTypeDepartmentCare Team (Latest Contact Info)Cashhlsdtmj00/22/2025Orders Only [facility] Heart at [facility] [address] [place] [address] Maryuri Downing MA Anemia, unspecified type (Primary Dx) Social History Tobacco UseTypesPacks/DayYears UsedDateSmoking Tobacco: NeverSmokeless Tobacco: NeverAlcohol UseStandard Drinks/WeekCommentsNot Currently0 (1 standard drink = 0.6 oz pure alcohol)[facility] UtilitiesAnswerDate RecordedIn the past 12 [...] homeless or living in a residential (including now)?No11/15/2024Hunger Vital SignAnswerDate RecordedWithin the past 12 months, you worried that your food would run out before you got the money to buymore.Never true11/15/2024Ran Out of Food in the Last YearNot on file 11/15/2024CommentsNoSex and Gender InformationValueDate RecordedSex Assigned at TuipzBsxxwj88/03/2025 3:45 PM EDTLegal WxaRnqghr06/30/2022 12:07 AM EDTGender MjaaofcpFkuokv17/03/2025 3:45 PM EDTSexual OrientationHeterosexual or Ojtlhcll95/03/2025 3:45 PM EDTdocumented as of this encounter Functional Status * BPAnswerDate of YmnxoxjxvqYqiihj419/6012/06/2024 11:10 AM Nadia Ortega MA * PulseAnswerDate of ZzcvfkcgmeBkosvu9798/22/2025 11:10 AM Nadia Ortega MA * Patient PositionAnswerDate of IrcguszjkxRldgjxApqmszk28/22/2025 11:10 AM EDT Nadia Gagnon MA * BPAnswerDate of YieayaulcgHsgwtz285/6012/06/2024 11:10 AM Nadia Ortega MA * PulseAnswerDate of JkxfjjkqzqGeiwgl2497/22/2025 11:10 AM Nadia Ortega MA * MzH9LwunmuDjdi of IbajnzwxhwAolpkb4264/22/2025 11:10 AM Nadia Ortega MA * BP LocationAnswerDate of AssessmentAuthorLec[facility]12/06/2024 11:10 AM EDT Nadia Gagnon MA * Patient PositionAnswerDate of XwyocgcgczOsxrxkOgroqdz76/22/2025 11:10 AM EDT Nadia Gagnon MA documented as of this encounter Plan of Treatment DateTypeDepartmentCare Team (Latest Contact Info)Rzuboemudao19/30/2025 9:00 AM EDTAppointment [facility] [address] [place] [phone] Braxton Bellamy MD [address] [facility] [address] [facility] [place] [address] 12/14/2024 10:30 AM EDTAppointment [facility] X-Ray Imaging [address] [place] [address] 01/31/2025 11:00 AM ESTOffice Visit [facility] Heart at [facility] [address] [place] [phone] Wali Collins MD [address] [place] [address] documented as of this encounter Visit Diagnoses Diagnosis Anemia, unspecified type- Primary documented in this encounter Care Teams Team MemberRelationshipSpecialtyStart DateEnd Date Thomas Aals MD [address] [facility] [address] [address] PCP - GeneralFamily Medicine08/17/24documented as of this encounter
--- OUTSIDE RECORDS SUMMARY | 2024-12-06 12:11 | XMS_ITS | Encounter Summary ---
Author Organization [facility] Address [address] [facility], [address] [place] [address] Care Team Providers Care Chief Concierge Name Role Phone Thomas Alas MD Primary Care Provider [phone] Encounter Details DateTypeDepartmentCare Team (Latest Contact Info)Dgghylmcviu61/20/2025Travel Social History Tobacco UseTypesPacks/DayYears UsedDateSmoking Tobacco: NeverSmokeless [...] Safety Domain Source: IP Abuse ScreeningAnswerDate RecordedPhysical vtyegWaxpek63/18/2025 Verbal iagkvLkqhuz54/18/2025Emotional iikatMwrxxl20/18/2025Financial abuseDenies 12/02/2024Sexual yxljiQdiaqk50/18/2025CommentsNoSex and Gender InformationValueDate RecordedSex Assigned at BirthNot on fileLegal SexFemale 04/12/2013 2:41 PM ESTGender IdentityNot on fileSexual OrientationNot on file documented as of this encounter Functional Status documented as of this encounter Plan of Treatment Not on file documented as of this encounter Visit Diagnoses Not on filedocumented in this encounter Care Teams Team MemberRelationshipSpecialtyStart DateEnd Date Thomas Alas MD [address] [place] [address] PCP - GeneralFamily Medicine11/08/24documented as of this encounter
--- OUTSIDE RECORDS SUMMARY | 2024-12-06 12:13 | XMS_ITS | Patient Health Record ---
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 Name Role Phone Brandyn Alas Primary Care Provider [phone] Allergies Allergen (clinical drug ingredient) Drug/Non Drug Allergy documented on EMR Reaction Allergy Type Onset Date Status codeine Codeine vomiting Drug Allergy ActiveNon-steroidal anti-inflammatory agent (FN)NSAIDsGastric bypassDrug Allergy Active Results Component Value Reference Range Notes CBC AUTO DIFF Reviewed date:08/28/2024 06:06:36 PM Interpretation: Performing Lab: Notes/Report: [facility] , White Blood Count 5.2 4.0-11.0 10 3/uL Red Blood Count4.254.20-5.40 10 6/kJOcwsfuqiyc02.712.0-16.0 g/bGGzjehsbaig89.8 36.0-48.0 %Mean Corpuscular Jyuuvc64.381.0-99.0 fLMean Corpuscular Hemoglobin 29.926.7-34.0 pgMean Corpuscular HGB Conc32.729.9-35.2 g/dLRed Cell Distribution Width13.611.0-15.0 %Platelet Crjof577112-907 10 3/uLMean Platelet Rwwezt94.09.5- 13.5 fLPerforming Lab:see noteML - [facility] LBPROF 14(COMP METB) Reviewed date:08/28/2024 06:06:36 PM Interpretation: Performing Lab: Notes/Report: [facility] ,Ydgjrw226920-964 mmol/LPotassium3.13.5-5.1 mmol/YXufrapia33617-349 mmol/LCarbon Mjjxymc59.621.0-32.0 mmol/LAnion Gap19.0Muehlom8760-382 mg/dLBlood Urea Nitrogen 9.07.0-18.0 mg/dLCreatinine0.630.55-1.02 mg/dLEstimated GFR ( Shelby>60 >=60 mL/min/1.73m 2Estimated GFR (Non- Caroline>60>=60 mL/min/1.73m 2BUN Creatinine Ratio14.5Fvetpan2.48.5-10.1 mg/dLBilirubin Total0.50.2-1.0 mg/dL Aspartate Amino Zxxyysjsaah3295-25 U/LAlanine Eycndckpxzbxnmns1426-18 U/L Alkaline Ktjhckwkqfh89217-786 U/LTotal Protein6.26.4-8.2 g/dLAlbumin Level2.8 3.4-5.0 g/dLGlobulin3.4Albumin Globulin Ratio0.8Performing Lab:see noteML - [facility] LBBlood Culture 2 Reviewed date:09/04/2024 02:45:30 PM Interpretation: Performing Lab: Notes/Report: LEFT WRIST [facility] ,Blood Culture 2See Below For Report Blood Culture 2 NG5D NO GROWTH AT 5 DAYS.^NO GROWTH AT 5 DAYS. Performing Lab:see noteML - [facility] LBCBC AUTO DIFF Reviewed date:08/10/2024 07:02:35 PM Interpretation: Performing Lab: Notes/Report: [facility] ,White Blood Count9.34.0-11.0 10 3/uLRed Blood Count3.214.20-5.40 10 6/uL Dggpdkgxva33.312.0-16.0 g/aSLpfqoxhyrw71.536.0-48.0 %Mean Corpuscular Ingwzj71.9 81.0-99.0 fLMean Corpuscular Aqkfhzsfdi63.126.7-34.0 pgMean Corpuscular HGB Conc 34.929.9-35.2 g/dLRed Cell Distribution Width13.411.0-15.0 %Platelet Vgjib214 150-450 10 3/uLMean Platelet Hzyuoh70.59.5-13.5 fLNeutrophils Percent Auto83.2 43.0-75.0 %Lymphocytes Percent Auto10.620.5-60.0 %Monocytes Percent Auto4.51.7- 12.0 %Eosinophils Percent Auto0.10.9-7.0 %Basophils Percent Auto0.20.2-2.0 % Immature Granulocytes Pct Auto1.40.0-0.5 %Neutrophils Absolute Auto7.71.4-6.5 10 3/uLLymphocytes Absolute Auto1.01.2-3.8 10 3/uLMonocytes Absolute Auto0.40.3-0.8 10 3/uLEosinophils Absolute Auto0.00.0-0.7 10 3/uLBasophils Absolute Auto0.00.0- 0.1 10 3/uLImmature Granulocytes Abs Auto0.130.00-0.03 10 3/uLPerforming Lab:see noteML - [facility] LBTestosterone,Free and Total Reviewed date:12/23/2023 07:44:34 PM Interpretation: Performing Lab: Notes/Report: [facility] ,Testosterone<38-60 ng/dLFree Testosterone(Direct)<0.20.0-4.2 pg/mL Performed at: - [facility] [address] [id number] Billing Supervisor: Daron Almanza PhD, Phone: [phone] Performed at: - [facility] [id number] Billing Supervisor: Suhas Ring MD, Phone: [phone] Performing Lab:see note - [facility] LBCBC AUTO DIFF Reviewed date:01/06/2024 01:36:15 PM Interpretation: Performing Lab: Notes/Report: [facility] ,White Blood Count5.64.0-11.0 10 3/uLRed Blood Count3.814.20-5.40 10 6/uL Qrkybmhxdu61.312.0-16.0 g/aINitjlqxnev62.536.0-48.0 %Mean Corpuscular Ksscpp24.6 81.0-99.0 fLMean Corpuscular Wlfrcwhhfw36.726.7-34.0 pgMean Corpuscular HGB Conc 32.829.9-35.2 g/dLRed Cell Distribution Width17.411.0-15.0 %Platelet Jlsya941 150-450 10 3/uLMean Platelet Lyjidr15.29.5-13.5 fLNeutrophils Percent Auto77.9 43.0-75.0 %Lymphocytes Percent Auto18.020.5-60.0 %Monocytes Percent Auto3.21.7- 12.0 %Eosinophils Percent Auto0.20.9-7.0 %Basophils Percent Auto0.50.2-2.0 % Immature Granulocytes Pct Auto0.20.0-0.5 %Neutrophils Absolute Auto4.31.4-6.5 10 3/uLLymphocytes Absolute Auto1.01.2-3.8 10 3/uLMonocytes Absolute Auto0.20.3-0.8 10 3/uLEosinophils Absolute Auto0.00.0-0.7 10 3/uLBasophils Absolute Auto0.00.0- 0.1 10 3/uLImmature Granulocytes Abs Auto0.010.00-0.03 10 3/uLPerforming Lab:see noteML - [facility] LBMAGNESIUM Reviewed date:01/06/2024 01:36:15 PM Interpretation: Performing Lab: Notes/Report: [facility] ,Magnesium1.71.8-2.4 mg/dLPerforming Lab:see noteML - [facility] LB PHOSPHORUS Reviewed date:01/06/2024 01:36:15 PM Interpretation: Performing Lab: Notes/Report: [facility] ,Phosphorus3.32.6-4.7 mg/dLPerforming Lab:see noteML - [facility] LB PROF 14(COMP METB) Reviewed date:01/06/2024 01:36:15 PM Interpretation: Performing Lab: Notes/Report: [facility] ,Nqdykw145458-532 mmol/LPotassium3.63.5-5.1 mmol/RExkgtebu45231-643 mmol/LCarbon Qduitwk34.121.0-32.0 mmol/LAnion Gap15.2Tlsamlx79348-995 mg/dLBlood Urea Nitrogen7.07.0-18.0 mg/dLCreatinine0.860.55-1.02 mg/dLEstimated GFR ( Shelby>60>=60 mL/min/1.73m 2Estimated GFR (Non- Caroline>60>=60 mL/min/1.73m 2BUN Creatinine Ratio8.2Izjrtdu1.58.5-10.1 mg/dLBilirubin Total0.30.2-1.0 mg/dL Aspartate Amino Xizhasphjee3505-74 U/LAlanine Ftrrcorvkdzwlgvj5845-89 U/L Alkaline Dgzyowpxjvn0022-698 U/LTotal Protein6.36.4-8.2 g/dLAlbumin Level3.43.4- 5.0 g/dLGlobulin2.9Albumin Globulin Ratio1.2Performing Lab:see note - [facility] LBTestosterone Reviewed date:01/11/2024 02:35:19 PM Interpretation: Performing Lab: Notes/Report: [facility] ,Testosterone<38-60 ng/dL Performed at: - [facility] [address] [id number] Billing Supervisor: Daron Almanza PhD, Phone: [phone] Performing Lab:see note - [facility] LBXR acute abdomen series Reviewed date:01/12/2024 05:28:40 PM Interpretation: Performing Lab: Notes/Report: Source Facility: [place] [address] [place] [address] XRay Report Signed Patient: JUAN GARCIA MR#: [id number] : 1990 Acct:[id number] Age/Sex: 33 / F ADM Date: 01/10/24 Loc: LAB Attending Dr: Britt Alas M.D. Ordering Physician: Britt Alas M.D. Date of Service: 01/10/24 Procedure(s): XR acute abdomen series Accession Number(s): [id number] cc: Britt Alas M.D. [place] [id number] Patient Name: JUAN GARCIA MRN: [facility]:[id number] date: 1990 Sex: F Assigned Patient Location: LAB Current Patient Location: Accession/Order Number: [id number] Exam Date: 01/10/2024 10:06 Report Date: 01/12/2024 [...] Signed By: 01/12/24 1448 DD/ 1445 TD/TT: Dolphin Trainer:MAGNESIUM Reviewed date:01/20/2024 03:46:41 PM Interpretation: Performing Lab: Notes/Report: [facility] ,Magnesium1.71.8-2.4 mg/dLPerforming Lab:see noteML - [facility] LB PHOSPHORUS Reviewed date:01/20/2024 03:46:41 PM Interpretation: Performing Lab: Notes/Report: [facility] ,Phosphorus3.52.6-4.7 mg/dLPerforming Lab:see note - [facility] LB PROF 14(COMP METB) Reviewed date:01/20/2024 03:46:41 PM Interpretation: Performing Lab: Notes/Report: [facility] ,Jniulw720891-402 mmol/LPotassium4.03.5-5.1 mmol/XUpgisakj05388-006 mmol/LCarbon Nkkvhof54.921.0-32.0 mmol/LAnion Gap15.7Flqijvd0270-463 mg/dLBlood Urea Nitrogen 7.07.0-18.0 mg/dLCreatinine0.850.55-1.02 mg/dLEstimated GFR ( Shelby>60 >=60 mL/min/1.73m 2Estimated GFR (Non- Caroline>60>=60 mL/min/1.73m 2BUN Creatinine Ratio8.1Togvxtu8.48.5-10.1 mg/dLBilirubin Total0.30.2-1.0 mg/dL Aspartate Amino Lndfofrnyvd8080-77 U/LAlanine Wlwhcboiwsvcdzme2669-19 U/L Alkaline Rpqtncoppuq1116-904 U/LTotal Protein6.36.4-8.2 g/dLAlbumin Level3.63.4- 5.0 g/dLGlobulin2.7Albumin Globulin Ratio1.3Performing Lab:[facility] LBFERRITIN Reviewed date:01/31/2024 02:12:13 PM Interpretation: Performing Lab: Notes/Report: [facility] ,Lqimzvbe59.08.0-252.0 ng/mLPerforming Lab:[facility] LB IRON AND TIBC Reviewed date:01/31/2024 02:12:13 PM Interpretation: Performing Lab: Notes/Report: [facility] ,Bbmk635.050.0-170.0 ug/dLTotal Iron Binding Xxwseiep818.0250.0-450.0 ug/dL Percent Iron Cduizzfskl84.3Performing Lab:see note - [facility] LB Transferrin Reviewed date:02/01/2024 12:16:29 PM Interpretation: Performing Lab: Notes/Report: [facility] ,Awgyiuztcya048296-183 mg/dL Performed at: [address] [id number] Billing Supervisor: Daron Almanza PhD, Phone: [phone] Performing Lab:[facility] LBCBC AUTO DIFF Reviewed date:02/16/2024 03:19:17 PM Interpretation: Performing Lab: Notes/Report: [facility] ,White Blood Count7.74.0-11.0 10 3/uLRed Blood Count3.914.20-5.40 10 6/uL Czffszixoo00.512.0-16.0 g/xTWkizemcmkw87.336.0-48.0 %Mean Corpuscular Ootskn66.4 81.0-99.0 fLMean Corpuscular Fxbzexpfej25.026.7-34.0 pgMean Corpuscular HGB Conc 33.529.9-35.2 g/dLRed Cell Distribution Width14.311.0-15.0 %Platelet Fhkuf641 150-450 10 3/uLMean Platelet Asqdoa28.39.5-13.5 fLNeutrophils Percent Auto83.0 43.0-75.0 %Lymphocytes Percent Auto13.620.5-60.0 %Monocytes Percent Auto2.71.7- 12.0 %Eosinophils Percent Auto0.30.9-7.0 %Basophils Percent Auto0.30.2-2.0 % Immature Granulocytes Pct Auto0.10.0-0.5 %Neutrophils Absolute Auto6.41.4-6.5 10 3/uLLymphocytes Absolute Auto1.01.2-3.8 10 3/uLMonocytes Absolute Auto0.20.3-0.8 10 3/uLEosinophils Absolute Auto0.00.0-0.7 10 3/uLBasophils Absolute Auto0.00.0- 0.1 10 3/uLImmature Granulocytes Abs Auto0.010.00-0.03 10 3/uLPerforming Lab:see noteML - [facility] LBCBC AUTO DIFF Reviewed date:03/29/2024 09:46:23 PM Interpretation: Performing Lab: Notes/Report: [facility] ,White Blood Count8.64.0-11.0 10 3/uLRed Blood Count3.734.20-5.40 10 6/uL Ijsyoiywit47.712.0-16.0 g/dOUrhcjuqnpp53.536.0-48.0 %Mean Corpuscular Zkoiof60.9 81.0-99.0 fLMean Corpuscular Epmauuwsob24.026.7-34.0 pgMean Corpuscular HGB Conc 34.829.9-35.2 g/dLRed Cell Distribution Width12.011.0-15.0 %Platelet Latmy188 150-450 10 3/uLMean Platelet Hzijdd17.89.5-13.5 fLNeutrophils Percent Auto87.8 43.0-75.0 %Lymphocytes Percent Auto10.220.5-60.0 %Monocytes Percent Auto1.61.7- 12.0 %Eosinophils Percent Auto0.00.9-7.0 %Basophils Percent Auto0.20.2-2.0 % Immature Granulocytes Pct Auto0.20.0-0.5 %Neutrophils Absolute Auto7.51.4-6.5 10 3/uLLymphocytes Absolute Auto0.91.2-3.8 10 3/uLMonocytes Absolute Auto0.10.3-0.8 10 3/uLEosinophils Absolute Auto0.00.0-0.7 10 3/uLBasophils Absolute Auto0.00.0- 0.1 10 3/uLImmature Granulocytes Abs Auto0.020.00-0.03 10 3/uLPerforming Lab:see noteML - [facility] LBMAGNESIUM Reviewed date:03/29/2024 09:46:23 PM Interpretation: Performing Lab: Notes/Report: [facility] ,Magnesium1.81.8-2.4 mg/dLPerforming Lab:see noteML - [facility] LB TSH Reviewed date:03/29/2024 09:46:23 PM Interpretation: Performing Lab: Notes/Report: [facility] ,Thyroid Stimulating Hormone0.6220.358-3.740 uIU/mLPerforming Lab:see noteML - [facility] LBCBC AUTO DIFF Reviewed date:03/30/2024 07:56:16 PM Interpretation: Performing Lab: Notes/Report: [facility] ,White Blood Count4.64.0-11.0 10 3/uLRed Blood Count3.644.20-5.40 10 6/uL Ifovvphicy97.112.0-16.0 g/dDZvkucxmpsf14.136.0-48.0 %Mean Corpuscular Mqddzc05.2 81.0-99.0 fLMean Corpuscular Rajvzuirck53.226.7-34.0 pgMean Corpuscular HGB Conc 33.529.9-35.2 g/dLRed Cell Distribution Width12.011.0-15.0 %Platelet Nqabe993 150-450 10 3/uLMean Platelet Wnanwq32.09.5-13.5 fLNeutrophils Percent Auto84.8 43.0-75.0 %Lymphocytes Percent Auto13.320.5-60.0 %Monocytes Percent Auto1.31.7- 12.0 %Eosinophils Percent Auto0.00.9-7.0 %Basophils Percent Auto0.20.2-2.0 % Immature Granulocytes Pct Auto0.40.0-0.5 %Neutrophils Absolute Auto3.91.4-6.5 10 3/uLLymphocytes Absolute Auto0.61.2-3.8 10 3/uLMonocytes Absolute Auto0.10.3-0.8 10 3/uLEosinophils Absolute Auto0.00.0-0.7 10 3/uLBasophils Absolute Auto0.00.0- 0.1 10 3/uLImmature Granulocytes Abs Auto0.020.00-0.03 10 3/uLPerforming Lab:see noteML - [facility] LBPROF 14(COMP METB) Reviewed date:02/16/2024 03:19:17 PM Interpretation: Performing Lab: Notes/Report: HOME HEALTH NURSE [facility] ,Hmuelk009109-310 mmol/LPotassium3.83.5-5.1 mmol/BCpafxvte53974-032 mmol/LCarbon Vjmcqjl49.521.0-32.0 mmol/LAnion Gap11.7Yqpuujy5054-594 mg/dLBlood Urea Nitrogen 7.07.0-18.0 mg/dLCreatinine0.900.55-1.02 mg/dLEstimated GFR ( Shelby>60 >=60 mL/min/1.73m 2Estimated GFR (Non- Caroline>60>=60 mL/min/1.73m 2BUN Creatinine Ratio7.5Emrwzap8.48.5-10.1 mg/dLBilirubin Total0.30.2-1.0 mg/dL Aspartate Amino Ythsxgqsbzw7187-54 U/LAlanine Vmrxwgjdgnhhboky5553-41 U/L Alkaline Cnepkkahyyx8665-960 U/LTotal Protein6.66.4-8.2 g/dLAlbumin Level3.63.4- 5.0 g/dLGlobulin3.0Albumin Globulin Ratio1.2Performing Lab:see note - [facility] LBPHOSPHORUS Reviewed date:02/16/2024 03:19:17 PM Interpretation: Performing Lab: Notes/Report: HOME HEALTH NURSE [facility] ,Phosphorus3.32.6-4.7 mg/dLPerforming Lab:see note - [facility] LB MAGNESIUM Reviewed date:02/16/2024 03:19:17 PM Interpretation: Performing Lab: Notes/Report: HOME HEALTH NURSE [facility] ,Magnesium1.81.8-2.4 mg/dLPerforming Lab:see noteA[facility] LB PROF 14(COMP METB) Reviewed date:01/31/2024 02:12:13 PM Interpretation: Performing Lab: Notes/Report: [facility] ,Wfmgsv705069-147 mmol/LPotassium4.03.5-5.1 mmol/CDqimlpab05396-994 mmol/LCarbon Btbyhih73.821.0-32.0 mmol/LAnion Gap15.2Hxkfcue40774-316 mg/dLBlood Urea Nitrogen9.07.0-18.0 mg/dLCreatinine1.010.55-1.02 mg/dLEstimated GFR ( Shelby>60>=60 mL/min/1.73m 2Estimated GFR (Non- Caroline>60>=60 mL/min/1.73m 2BUN Creatinine Ratio8.8Xpzsdqk1.28.5-10.1 mg/dLBilirubin Total0.30.2-1.0 mg/dL Aspartate Amino Kfrbtynampg2518-37 U/LAlanine Hkldihfcpeghyaam1625-68 U/L Alkaline Runxlhifrdh2384-223 U/LTotal Protein6.26.4-8.2 g/dLAlbumin Level3.33.4- 5.0 g/dLGlobulin2.9Albumin Globulin Ratio1.1Performing Lab:see note - [facility] LBPHOSPHORUS Reviewed date:01/31/2024 02:12:13 PM Interpretation: Performing Lab: Notes/Report: [facility] ,Phosphorus3.72.6-4.7 mg/dLPerforming Lab:see noteML - [facility] LB MAGNESIUM Reviewed date:01/31/2024 02:12:13 PM Interpretation: Performing Lab: Notes/Report: [facility] ,Magnesium1.61.8-2.4 mg/dLPerforming Lab:see noteML - [facility] LB CBC AUTO DIFF Reviewed date:01/31/2024 02:12:13 PM Interpretation: Performing Lab: Notes/Report: [facility] ,White Blood Count5.34.0-11.0 10 3/uLRed Blood Count3.804.20-5.40 10 6/uL Ywulefpvdf66.712.0-16.0 g/mZHifcbelhje94.436.0-48.0 %Mean Corpuscular Ggagdi17.8 81.0-99.0 fLMean Corpuscular Edjxbeojsk22.826.7-34.0 pgMean Corpuscular HGB Conc 32.129.9-35.2 g/dLRed Cell Distribution Width15.911.0-15.0 %Platelet Szoeh328 150-450 10 3/uLMean Platelet Ubylus79.79.5-13.5 fLNeutrophils Percent Auto78.1 43.0-75.0 %Lymphocytes Percent Auto18.420.5-60.0 %Monocytes Percent Auto2.31.7- 12.0 %Eosinophils Percent Auto0.40.9-7.0 %Basophils Percent Auto0.60.2-2.0 % Immature Granulocytes Pct Auto0.20.0-0.5 %Neutrophils Absolute Auto4.11.4-6.5 10 3/uLLymphocytes Absolute Auto1.01.2-3.8 10 3/uLMonocytes Absolute Auto0.10.3-0.8 10 3/uLEosinophils Absolute Auto0.00.0-0.7 10 3/uLBasophils Absolute Auto0.00.0- 0.1 10 3/uLImmature Granulocytes Abs Auto0.010.00-0.03 10 3/uLPerforming Lab:see noteML - [facility] LBCBC AUTO DIFF Reviewed date:08/02/2024 05:29:08 PM Interpretation: Performing Lab: Notes/Report: [facility] ,White Blood Count9.14.0-11.0 10 3/uLRed Blood Count3.854.20-5.40 10 6/uL Dtscthjjes46.412.0-16.0 g/cIUakglogqbt96.136.0-48.0 %Mean Corpuscular Rcbuyh39.8 81.0-99.0 fLMean Corpuscular Bwkwbqbhri29.226.7-34.0 pgMean Corpuscular HGB Conc 34.329.9-35.2 g/dLRed Cell Distribution Width12.611.0-15.0 %Platelet Nsbyj870 150-450 10 3/uLMean Platelet Vbirtp62.49.5-13.5 fLNeutrophils Percent Auto83.0 43.0-75.0 %Lymphocytes Percent Auto12.720.5-60.0 %Monocytes Percent Auto3.41.7- 12.0 %Eosinophils Percent Auto0.40.9-7.0 %Basophils Percent Auto0.30.2-2.0 % Immature Granulocytes Pct Auto0.20.0-0.5 %Neutrophils Absolute Auto7.51.4-6.5 10 3/uLLymphocytes Absolute Auto1.21.2-3.8 10 3/uLMonocytes Absolute Auto0.30.3-0.8 10 3/uLEosinophils Absolute Auto0.00.0-0.7 10 3/uLBasophils Absolute Auto0.00.0- 0.1 10 3/uLImmature Granulocytes Abs Auto0.020.00-0.03 10 3/uLPerforming Lab:see noteML - [facility] LBLACTATE or LACTIC ACID Reviewed date:08/02/2024 05:29:08 PM Interpretation: Performing Lab: Notes/Report: [facility] ,Lactate/Lactic Acid2.20.4-2.0 mmol/LRESULTS CALLED TO DR. Jain Lab:see noteML - [facility] LBLIPASE Reviewed date:08/02/2024 05:29:08 PM Interpretation: Performing Lab: Notes/Report: [facility] ,Uberzi12.016.0-77.0 U/LPerforming Lab:see noteML - [facility] LBPROF 14(COMP METB) Reviewed date:08/02/2024 05:29:08 PM Interpretation: Performing Lab: Notes/Report: [facility] ,Lelgsc698051-208 mmol/LPotassium3.63.5-5.1 mmol/EJmumapzj16711-948 mmol/LCarbon Pbolxhz31.321.0-32.0 mmol/LAnion Gap15.6Ablifdt0440-562 mg/dLBlood Urea Nitrogen 11.07.0-18.0 mg/dLCreatinine0.720.55-1.02 mg/dLEstimated GFR ( Shelby>60 >=60 mL/min/1.73m 2Estimated GFR (Non- Caroline>60>=60 mL/min/1.73m 2BUN Creatinine Ratio15.7Fdoyjja1.58.5-10.1 mg/dLBilirubin Total0.40.2-1.0 mg/dL Aspartate Amino Wqkkqgydmoa5805-74 U/LAlanine Rducljgdafdeeaxf0161-58 U/L Alkaline Pxgzxioaypd6100-529 U/LTotal Protein6.66.4-8.2 g/dLAlbumin Level3.63.4- 5.0 g/dLGlobulin3.0Albumin Globulin Ratio1.2Performing Lab:see noteML - [facility] LBTroponin I High Sensitivity Reviewed date:08/02/2024 05:29:08 PM Interpretation: Performing Lab: Notes/Report: [facility] ,Troponin I High Sensitivity<4.04.0-51.3 pg/mL HAS BEEN CONFIRMED THE DECISION THRESHOLD FOR IA DIAGNOSIS. 99TH PERCENTILE = 51.4 PG/ML NOTE: HIGH-SENSITIVITY TROPONIN ASSAY IS NOT INTENDED TO BE USED IN ISOLATION BUT SHOULD BE INTERPRETED IN CONJUNCTION WITH OTHER DIAGNOSTIC AND CLINICAL INFORMATION. CUT-OFF POINTS HAVE BEEN ESTABLISHED BASED ON THE FOURTH UNIVERSAL DEFINITION OF MYOCARDIAL INFARCTION. THE UPPER REFERENCE LIMIT (URL) OF TROPONIN, DEFINED THE 99TH PERCENTILE OF cTnI DISTRIBUTION IN A REFERENCE POPULATION, Performing Lab:see noteML - [facility] LBHCG Qualitative Urine Reviewed date:08/02/2024 05:29:08 PM Interpretation: Performing Lab: Notes/Report: [facility] ,HCG Qualitative Urine*NEGATIVENEGATIVEPerforming Lab:see noteML - [facility] LBUA Micro, reflex to culture Reviewed date:08/02/2024 05:29:08 PM Interpretation: Performing Lab: Notes/Report: [facility] ,Color UrineLT. YELLOWYELLOWClarity UrineCLEARCLEARSpecific [place] Urine<=1.005 1.005-1.025pH Urine6.55.0-9.0Protein UrineNEGATIVENEG/TRACE mg/dLGlucose Urine UANEGATIVENEGATIVE mg/dLBilirubin UrineNEGATIVENEGATIVEKetones UrineNEGATIVE NEGATIVE mg/dLBlood UrineNEGATIVENEGATIVENitrite UrineNEGATIVENEGATIVE Urobilinogen Urine0.20.2-1.0 EU/dLLeukocyte Esterase UrineNEGATIVENEGATIVEWBC UrineNONE SEENNONE SEEN #/HPFRBC UrineNONE SEEN0-2 #/HPFBacteria UrineTRACENONE SEEN #/HPFMucus UrineNONE SEENNONE SEENSquamous Epithelial Cell UrineFEW NONE/RARE #/LPFCrystals Seen?None SeenNone Seen #/HPFCast Seen?NONE SEENNONE SEEN #/LPFUrine Culture IndicatedNOPerforming Lab:see noteML - [facility] LBCBC AUTO DIFF Reviewed date:01/20/2024 03:46:41 PM Interpretation: Performing Lab: Notes/Report: [facility] ,White Blood Count5.74.0-11.0 10 3/uLRed Blood Count4.024.20-5.40 10 6/uL Bgvrlmuvvy47.412.0-16.0 g/kKLgzakeqwfr35.736.0-48.0 %Mean Corpuscular Skiqxp17.3 81.0-99.0 fLMean Corpuscular Awjkapkyfa79.826.7-34.0 pgMean Corpuscular HGB Conc 33.829.9-35.2 g/dLRed Cell Distribution Width16.711.0-15.0 %Platelet Cchqb776 150-450 10 3/uLMean Platelet Mxiqbu39.29.5-13.5 fLNeutrophils Percent Auto81.6 43.0-75.0 %Lymphocytes Percent Auto14.620.5-60.0 %Monocytes Percent Auto2.81.7- 12.0 %Eosinophils Percent Auto0.40.9-7.0 %Basophils Percent Auto0.40.2-2.0 % Immature Granulocytes Pct Auto0.20.0-0.5 %Neutrophils Absolute Auto4.71.4-6.5 10 3/uLLymphocytes Absolute Auto0.81.2-3.8 10 3/uLMonocytes Absolute Auto0.20.3-0.8 10 3/uLEosinophils Absolute Auto0.00.0-0.7 10 3/uLBasophils Absolute Auto0.00.0- 0.1 10 3/uLImmature Granulocytes Abs Auto0.010.00-0.03 10 3/uLPerforming Lab:see noteML - [facility] LBLIPASE Reviewed date:08/02/2024 05:29:08 PM Interpretation: Performing Lab: Notes/Report: [facility] ,Bkpvos61.016.0-77.0 U/LPerforming Lab:see noteML - [facility] LB LACTATE or LACTIC ACID Reviewed date:08/02/2024 05:29:08 PM Interpretation: Performing Lab: Notes/Report: [facility] ,Lactate/Lactic Acid1.90.4-2.0 mmol/LPerforming Lab:see noteML - [facility] LBXR abdomen 1V Reviewed date:01/17/2024 01:32:20 PM Interpretation: Performing Lab: Notes/Report: Source Facility: [facility]-[address] [place] [address] [place] [address] XRay Report Signed Patient: JUAN GARCIA MR#: [id number] : 1990 Acct:[id number] Age/Sex: 33 / F ADM Date: 01/17/24 Loc: ER Attending Dr: Ordering Physician: Leslie Terrazas M.D. Date of Service: 01/17/24 Procedure(s): XR abdomen 1V Accession Number(s): [id number] cc: Britt Alas M.D.; Leslie Terrazas M.D. [facility] [place] [id number] Patient Name: JUAN GARCIA MRN: [id number] date: 1990 Sex: F Assigned Patient Location: ER Current Patient Location: ER Accession/Order Number: [id number] Exam Date: 01/17/2024 12:55 Report Date: 01/17/2024 [...] Signed By: 01/17/24 1329 DD/ 1326 TD/TT: Dolphin Trainer:PROF Hickey(COMP METB) Reviewed date:12/22/2023 09:03:29 PM Interpretation: Performing Lab: Notes/Report: [facility] ,Lnnmxx163914-000 mmol/LPotassium4.23.5-5.1 mmol/NPfbthnzw11367-767 mmol/LCarbon Rhuhgqv51.721.0-32.0 mmol/LAnion Gap12.6Nofgbiu9125-797 mg/dLBlood Urea Nitrogen 8.07.0-18.0 mg/dLCreatinine0.900.55-1.02 mg/dLEstimated GFR ( [place]>60 >=60 mL/min/1.73m 2Estimated GFR (Non- [place]>60>=60 mL/min/1.73m 2BUN Creatinine Ratio8.3Vvzjmjq7.08.5-10.1 mg/dLBilirubin Total0.30.2-1.0 mg/dL Aspartate Amino Aopavuxtqjy2669-85 U/LAlanine Qalbztpleijblgtz0054-50 U/L Alkaline Kjiohbfvrgb4298-454 U/LTotal Protein6.76.4-8.2 g/dLAlbumin Level3.63.4- 5.0 g/dLGlobulin3.1Albumin Globulin Ratio1.2Performing Lab:see noteML - [facility] LBLACTATE or LACTIC ACID Reviewed date:08/15/2024 06:53:10 PM Interpretation: Performing Lab: Notes/Report: [facility] ,Lactate/Lactic Acid0.60.4-2.0 mmol/LPerforming Lab:see note - [facility] LBPHOSPHORUS Reviewed date:12/22/2023 09:03:29 PM Interpretation: Performing Lab: Notes/Report: [facility] ,Phosphorus2.02.6-4.7 mg/dLPerforming Lab:see note - [facility] [facility] LB PROF 14(COMP METB) Reviewed date:08/15/2024 06:53:11 PM Interpretation: Performing Lab: Notes/Report: [facility] ,[id number] mmol/LPotassium3.83.5-5.1 mmol/CRdbjdrqo66005-704 mmol/LCarbon Vsbqqlo59.521.0-32.0 mmol/LAnion Gap15.7Hmkvnyy17480-570 mg/dLBlood Urea Iuiytlvj86.07.0-18.0 mg/dLCreatinine0.610.55-1.02 mg/dLEstimated GFR ( Shelby>60>=60 mL/min/1.73m 2Estimated GFR (Non- Caroline>60>=60 mL/min/1.73m 2BUN Creatinine Ratio18.3Wctabdb5.28.5-10.1 mg/dLBilirubin Total0.60.2-1.0 mg/dL Aspartate Amino Aeuydtcuemc8173-30 U/LAlanine Cmqztyugzetzvlcz6966-17 U/L Alkaline Xlmffikkvob08614-704 U/LTotal Protein6.26.4-8.2 g/dLAlbumin Level2.5 3.4-5.0 g/dLGlobulin3.7Albumin Globulin Ratio0.7Performing Lab:see noteML - [facility] LBMAGNESIUM Reviewed date:12/22/2023 09:03:29 PM Interpretation: Performing Lab: Notes/Report: [facility] ,Magnesium2.01.8-2.4 mg/dLPerforming Lab:see noteML - [facility] LB Aerobe ID + Suscept Reviewed date:08/21/2024 08:08:02 PM Interpretation: Performing Lab: Notes/Report: [facility] ,Aerobe ID + SusceptSee Below For Report Aerobe ID + Suscept WILL FOLLOW O:GNR Isolated O:KLEBPN Isolated Organism: 1.2 Antibiotic Interpretation SANDHYA Status Aerobe ID + Suscept Aerobe ID + Suscept WILL FOLLOW O:GNR Isolated O:KLEBPN Isolated Organism: 1.2 Antibiotic Interpretation SANDHYA Status Aerobe ID + SusceptSpecimen has been received and testing has been initiated. Aerobe ID + Suscept WILL FOLLOW O:GNR Isolated O:KLEBPN Isolated Organism: 1.2 Antibiotic Interpretation SANDHYA Status Aerobe ID + SusceptOrganism: Gram negative jeffery : Aerobe ID + Suscept WILL FOLLOW O:GNR Isolated O:KLEBPN Isolated Organism: 1.2 Antibiotic Interpretation SANDHYA Status Aerobe ID + Suscept*ABNORMAL* Aerobe ID + Suscept WILL FOLLOW O:GNR Isolated O:KLEBPN Isolated Organism: 1.2 Antibiotic Interpretation SANDHYA Status Aerobe ID + SusceptReceived anaerobic bottle only. Aerobe ID + Suscept WILL FOLLOW O:GNR Isolated O:KLEBPN Isolated Organism: 1.2 Antibiotic Interpretation SANDHYA Status Aerobe ID + SusceptIdentification and sensitivities to follow. Aerobe ID + Suscept WILL FOLLOW O:GNR Isolated O:KLEBPN Isolated Organism: 1.2 Antibiotic Interpretation SANDHYA Status Aerobe ID + SusceptGram negative jeffery Aerobe ID + Suscept WILL FOLLOW O:GNR Isolated O:KLEBPN Isolated Organism: 1.2 Antibiotic Interpretation SANDHYA Status Aerobe ID + SusceptOrganism: Klebsiella pneumoniae. : Aerobe ID + Suscept WILL FOLLOW O:GNR Isolated O:KLEBPN Isolated Organism: 1.2 Antibiotic Interpretation SANDHYA Status Aerobe ID + Suscept*ABNORMAL* Aerobe ID + Suscept WILL FOLLOW O:GNR Isolated O:KLEBPN Isolated Organism: 1.2 Antibiotic Interpretation SANDHYA Status Aerobe ID + SusceptReceived anaerobic bottle only. Aerobe ID + Suscept WILL FOLLOW O:GNR Isolated O:KLEBPN Isolated Organism: 1.2 Antibiotic Interpretation SANDHYA Status Aerobe ID + SusceptKlebsiella pneumoniae. Aerobe ID + Suscept WILL FOLLOW O:GNR Isolated O:KLEBPN Isolated Organism: 1.2 Antibiotic Interpretation SANDHYA Status Aerobe ID + SusceptSee Below For Report Aerobe ID + Suscept WILL FOLLOW O:GNR Isolated O:KLEBPN Isolated Organism: 1.2 Antibiotic Interpretation SANDHYA Status Aerobe ID + SusceptSee Below For Report Aerobe ID + Suscept WILL FOLLOW O:GNR Isolated O:KLEBPN Isolated Organism: 1.2 Antibiotic Interpretation SANDHYA Status Aerobe ID + SusceptSee Below For Report Aerobe ID + Suscept WILL FOLLOW O:GNR Isolated O:KLEBPN Isolated Organism: 1.2 Antibiotic Interpretation SANDHYA Status Aerobe ID + SusceptAMOXICILLIN/CLAVULANIC ACID S F Aerobe ID + Suscept WILL FOLLOW O:GNR Isolated O:KLEBPN Isolated Organism: 1.2 Antibiotic Interpretation SANDHYA Status Aerobe ID + SusceptAmpicillin R F Aerobe ID + Suscept WILL FOLLOW O:GNR Isolated O:KLEBPN Isolated Organism: 1.2 Antibiotic Interpretation SANDHYA Status Aerobe ID + SusceptCefazolin S F Aerobe ID + Suscept WILL FOLLOW O:GNR Isolated O:KLEBPN Isolated Organism: 1.2 Antibiotic Interpretation SANDHYA Status Aerobe ID + SusceptCefepime S F Aerobe ID + Suscept WILL FOLLOW O:GNR Isolated O:KLEBPN Isolated Organism: 1.2 Antibiotic Interpretation SANDHYA Status Aerobe ID + SusceptCefoxitin S F Aerobe ID + Suscept WILL FOLLOW O:GNR Isolated O:KLEBPN Isolated Organism: 1.2 Antibiotic Interpretation SANDHYA Status Aerobe ID + SusceptCefpodoxime S F Aerobe ID + Suscept WILL FOLLOW O:GNR Isolated O:KLEBPN Isolated Organism: 1.2 Antibiotic Interpretation SANDHYA Status Aerobe ID + SusceptCeftriaxone S F Aerobe ID + Suscept WILL FOLLOW O:GNR Isolated O:KLEBPN Isolated Organism: 1.2 Antibiotic Interpretation SANDHYA Status Aerobe ID + SusceptCiprofloxacin S F Aerobe ID + Suscept WILL FOLLOW O:GNR Isolated O:KLEBPN Isolated Organism: 1.2 Antibiotic Interpretation SANDHYA Status Aerobe ID + SusceptErtapenem S F Aerobe ID + Suscept WILL FOLLOW O:GNR Isolated O:KLEBPN Isolated Organism: 1.2 Antibiotic Interpretation SANDHYA Status Aerobe ID + SusceptGentamicin S F Aerobe ID + Suscept WILL FOLLOW O:GNR Isolated O:KLEBPN Isolated Organism: 1.2 Antibiotic Interpretation SANDHYA Status Aerobe ID + SusceptLevofloxacin S F Aerobe ID + Suscept WILL FOLLOW O:GNR Isolated O:KLEBPN Isolated Organism: 1.2 Antibiotic Interpretation SANDHYA Status Aerobe ID + SusceptMeropenem S F Aerobe ID + Suscept WILL FOLLOW O:GNR Isolated O:KLEBPN Isolated Organism: 1.2 Antibiotic Interpretation SANDHYA Status Aerobe ID + SusceptTetracycline S F Aerobe ID + Suscept WILL FOLLOW O:GNR Isolated O:KLEBPN Isolated Organism: 1.2 Antibiotic Interpretation SANDHYA Status Aerobe ID + SusceptTobramycin S F Aerobe ID + Suscept WILL FOLLOW O:GNR Isolated O:KLEBPN Isolated Organism: 1.2 Antibiotic Interpretation SANDHYA Status Aerobe ID + SusceptTrimethoprim/Sulfamethoxazole S F Aerobe ID + Suscept WILL FOLLOW O:GNR Isolated O:KLEBPN Isolated Organism: 1.2 Antibiotic Interpretation SANDHYA Status Aerobe ID + SusceptPiperacillin/Tazobactam S F Aerobe ID + Suscept WILL FOLLOW O:GNR Isolated O:KLEBPN Isolated Organism: 1.2 Antibiotic Interpretation SANDHYA Status Performing Lab:see note LC - [facility] LB SEE REPORT - Direct Sales Professional Id information not found for OBX-specific licensed sales producer legend Anaerobe Identification Only Reviewed date:08/21/2024 08:08:02 PM Interpretation: Performing Lab: Notes/Report: [facility] ,Anaerobe Identification OnlySee Below For Report Anaerobe Identification Only Anaerobe Identification OnlySpecimen has been received and testing has been initiated. Anaerobe Identification Only Anaerobe Identification Only Anaerobe Identification Only Anaerobe Identification OnlyNo anaerobes recovered. Anaerobe Identification Only Anaerobe Identification OnlyPerformed at: - [facility] Anaerobe Identification Only Anaerobe Identification [id number] [place], [place] [id number] Anaerobe Identification Only Anaerobe Identification OnlyLab Director: Daron Almanza PhD, Phone: [phone] Anaerobe Identification Only Performing Lab:see note LC - [facility] LB SEE REPORT - Direct Sales Professional Id information not found for OBX-specific licensed sales producer legend ECG 12 lead Reviewed date:08/16/2024 07:06:02 PM Interpretation: Performing Lab: Notes/Report: Source Facility: [place] [address] Electrocardiograph Report Signed Patient: JUAN GARCIA MR#: [id number] : 1990 Acct:[id number] Age/Sex: 34 / F ADM Date: 08/15/24 Loc: ER Attending Dr: Ordering Physician: Domenica Romeo Date of Service: 08/15/24 Procedure(s): ECG 12 lead Accession Number(s): [id number] cc: [facility] Test Date: 2024-08-15 Pat Name: JUAN GARCIA Department: Room: - Gender: Female 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 Measurements Intervals [place] Rate: 82 P: 45 KS: 142 QRS: 75 QRSD: 84 T: 44 QT: 402 QTc: 440 Interpretive Statements 1100 Sinus rhythm 9110 normal ECG Compared to ECG 06/21/2024 11:24:35 No significant changes Electronically Signed On 08-16-2024 6:37:55 EDT by JAMES HODGES M.D. Dictated By: JAMES HODGES Signed By: 08/16/24 0637 DD/ 1303 TD/TT: Dolphin Trainer:LAB TESTING Reviewed date:12/31/2023 06:29:26 AM Interpretation: Performing Lab: Notes/Report: [id number] Fatty Acid Profile, Essential [facility] ,Miscellaneous TestCOMMENT. Test Ordered: [id number] Fatty Acid Profile, Essential Interp, Fatty Acids Profile SP Normal Y8 Reference Range: . Normal fatty acid profile. Results reviewed and interpreted by Doris Odonnell, PhD, FACMG INTERPRETIVE INFORMATION: Fatty Acids Profile, Essential Ser/Plas This test does not screen for disorders of peroxisomal biogenesis/function. This test was developed and its performance characteristics determined by [employer]. It has not been cleared or approved [...] Acid, C18:2w6 3001 nmol/mL Y8 Reference Range: 7391-9429 a-Linolenic Acid, C18:3w3 71 nmol/mL Y8 Reference Range: 20-200 c-a-Vveufjajn C20:3w6 198 nmol/mL Y8 Reference Range: 45-340 g-Linolenic Acid, C18:3w6 104 nmol/mL Y8 Reference Range: 10-120 [place] Acid, C20:3w9 27 nmol/mL Y8 Reference Range: 1-35 Myristic Acid, C14:0 123 nmol/mL Y8 Reference Range: 20-520 Nervonic Acid, C24:1w9 116 nmol/mL Y8 Reference Range: 35-145 Oleic Acid, C18:1w9 2918 nmol/mL Y8 Reference Range: 740-3900 Palmitic Acid, C16:0 3079 nmol/mL Y8 Reference Range: 2820-9360 Palmitoleic Acid, C16:1w7 218 nmol/mL Y8 Reference [...] Range: . Authorized individuals can access the Mobule Enhanced Report using the following link: [email or web address] . Y8 Reference Range: . Performed at: [employer] [address] [place] [id number] Billing Supervisor: Kirt Murphy [facility], Phone: [phone] Performed at: [address] [id number] Billing Supervisor: Daron Almanza PhD, Phone: [phone] Performing Lab:[facility] noteSH[facility] LBAerobe ID + Suscept Reviewed date:08/19/2024 07:52:14 PM Interpretation: Performing Lab: Notes/Report: [facility] ,Aerobe ID + SusceptSee Below For Report Aerobe ID + Suscept O:GNR Isolated O:KLEBPN Isolated Organism: 1.2 Antibiotic Interpretation SANDHYA Status Aerobe ID + SusceptSpecimen has been received and testing has been initiated. Aerobe ID + Suscept O:GNR Isolated O:KLEBPN Isolated Organism: 1.2 Antibiotic Interpretation SANDHYA Status Aerobe ID + SusceptOrganism: Gram negative jeffery : Aerobe ID + Suscept O:GNR Isolated O:KLEBPN Isolated Organism: 1.2 Antibiotic Interpretation SANDHYA Status Aerobe ID + Suscept*ABNORMAL* Aerobe ID + Suscept O:GNR Isolated O:KLEBPN Isolated Organism: 1.2 Antibiotic Interpretation SANDHYA Status Aerobe ID + SusceptReceived aerobic bottle only. Aerobe ID + Suscept O:GNR Isolated O:KLEBPN Isolated Organism: 1.2 Antibiotic Interpretation SANDHYA Status Aerobe ID + SusceptIdentification and sensitivities to follow. Aerobe ID + Suscept O:GNR Isolated O:KLEBPN Isolated Organism: 1.2 Antibiotic Interpretation SANDHYA Status Aerobe ID + SusceptGram negative jeffery Aerobe ID + Suscept O:GNR Isolated O:KLEBPN Isolated Organism: 1.2 Antibiotic Interpretation SANDHYA Status Aerobe ID + SusceptOrganism: Klebsiella pneumoniae. : Aerobe ID + Suscept O:GNR Isolated O:KLEBPN Isolated Organism: 1.2 Antibiotic Interpretation SANDHYA Status Aerobe ID + Suscept*ABNORMAL* Aerobe ID + Suscept O:GNR Isolated O:KLEBPN Isolated Organism: 1.2 Antibiotic Interpretation SANDHYA Status Aerobe ID + SusceptReceived aerobic bottle only. Aerobe ID + Suscept O:GNR Isolated O:KLEBPN Isolated Organism: 1.2 Antibiotic Interpretation SANDHYA Status Aerobe ID + SusceptKlebsiella pneumoniae. Aerobe ID + Suscept O:GNR Isolated O:KLEBPN Isolated Organism: 1.2 Antibiotic Interpretation SANDHYA Status Aerobe ID + SusceptSee Below For Report Aerobe ID + Suscept O:GNR Isolated O:KLEBPN Isolated Organism: 1.2 Antibiotic Interpretation SANDHYA Status Aerobe ID + SusceptSee Below For Report Aerobe ID + Suscept O:GNR Isolated O:KLEBPN Isolated Organism: 1.2 Antibiotic Interpretation SANDHYA Status Aerobe ID + SusceptPerformed at: [facility] Aerobe ID + Suscept O:GNR Isolated O:KLEBPN Isolated Organism: 1.2 Antibiotic Interpretation SANDHYA Status Aerobe ID + [id number] [place], [place] [id number] Aerobe ID + Suscept O:GNR Isolated O:KLEBPN Isolated Organism: 1.2 Antibiotic Interpretation SANDHYA Status Aerobe ID + SusceptLab Director: Daron Almanza PhD, Phone: [phone] Aerobe ID + Suscept O:GNR Isolated O:KLEBPN Isolated Organism: 1.2 Antibiotic Interpretation SANDHYA Status Aerobe ID + SusceptSee Below For Report Aerobe ID + Suscept O:GNR Isolated O:KLEBPN Isolated Organism: 1.2 Antibiotic Interpretation SANDHYA Status Aerobe ID + SusceptAMOXICILLIN/CLAVULANIC ACID S F Aerobe ID + Suscept O:GNR Isolated O:KLEBPN Isolated Organism: 1.2 Antibiotic Interpretation SANDHYA Status Aerobe ID + SusceptAmpicillin R F Aerobe ID + Suscept O:GNR Isolated O:KLEBPN Isolated Organism: 1.2 Antibiotic Interpretation SANDHYA Status Aerobe ID + SusceptCefazolin S F Aerobe ID + Suscept O:GNR Isolated O:KLEBPN Isolated Organism: 1.2 Antibiotic Interpretation SANDHYA Status Aerobe ID + SusceptCefepime S F Aerobe ID + Suscept O:GNR Isolated O:KLEBPN Isolated Organism: 1.2 Antibiotic Interpretation SANDHYA Status Aerobe ID + SusceptCefoxitin S F Aerobe ID + Suscept O:GNR Isolated O:KLEBPN Isolated Organism: 1.2 Antibiotic Interpretation SANDHYA Status Aerobe ID + SusceptCefpodoxime S F Aerobe ID + Suscept O:GNR Isolated O:KLEBPN Isolated Organism: 1.2 Antibiotic Interpretation SANDHYA Status Aerobe ID + SusceptCeftriaxone S F Aerobe ID + Suscept O:GNR Isolated O:KLEBPN Isolated Organism: 1.2 Antibiotic Interpretation SANDHYA Status Aerobe ID + SusceptCiprofloxacin S F Aerobe ID + Suscept O:GNR Isolated O:KLEBPN Isolated Organism: 1.2 Antibiotic Interpretation SANDHYA Status Aerobe ID + SusceptErtapenem S F Aerobe ID + Suscept O:GNR Isolated O:KLEBPN Isolated Organism: 1.2 Antibiotic Interpretation SANDHYA Status Aerobe ID + SusceptGentamicin S F Aerobe ID + Suscept O:GNR Isolated O:KLEBPN Isolated Organism: 1.2 Antibiotic Interpretation SANDHYA Status Aerobe ID + SusceptLevofloxacin S F Aerobe ID + Suscept O:GNR Isolated O:KLEBPN Isolated Organism: 1.2 Antibiotic Interpretation SANDHYA Status Aerobe ID + SusceptMeropenem S F Aerobe ID + Suscept O:GNR Isolated O:KLEBPN Isolated Organism: 1.2 Antibiotic Interpretation SANDHYA Status Aerobe ID + SusceptTetracycline S F Aerobe ID + Suscept O:GNR Isolated O:KLEBPN Isolated Organism: 1.2 Antibiotic Interpretation SANDHYA Status Aerobe ID + SusceptTobramycin S F Aerobe ID + Suscept O:GNR Isolated O:KLEBPN Isolated Organism: 1.2 Antibiotic Interpretation SANDHYA Status Aerobe ID + SusceptTrimethoprim/Sulfamethoxazole S F Aerobe ID + Suscept O:GNR Isolated O:KLEBPN Isolated Organism: 1.2 Antibiotic Interpretation SANDHYA Status Aerobe ID + SusceptPiperacillin/Tazobactam S F Aerobe ID + Suscept O:GNR Isolated O:KLEBPN Isolated Organism: 1.2 Antibiotic Interpretation SANDHYA Status Performing Lab:see note LC - [facility] LB SEE REPORT - Direct Sales Professional Id information not found for OBX-specific licensed sales producer legend Aerobe ID + Suscept Reviewed date:08/19/2024 07:52:14 PM Interpretation: Performing Lab: Notes/Report: [facility] ,Aerobe ID + SusceptSee Below For Report Aerobe ID + Suscept O:GNR Isolated O:KLEBPN Isolated Organism: 1.2 Antibiotic Interpretation SANDHYA Status Aerobe ID + SusceptSpecimen has been received and testing has been initiated. Aerobe ID + Suscept O:GNR Isolated O:KLEBPN Isolated Organism: 1.2 Antibiotic Interpretation SANDHYA Status Aerobe ID + SusceptOrganism: Gram negative jeffery : Aerobe ID + Suscept O:GNR Isolated O:KLEBPN Isolated Organism: 1.2 Antibiotic Interpretation SANDHYA Status Aerobe ID + Suscept*ABNORMAL* Aerobe ID + Suscept O:GNR Isolated O:KLEBPN Isolated Organism: 1.2 Antibiotic Interpretation SANDHYA Status Aerobe ID + SusceptReceived pediatric bottle only. Aerobe ID + Suscept O:GNR Isolated O:KLEBPN Isolated Organism: 1.2 Antibiotic Interpretation SANDHYA Status Aerobe ID + SusceptIdentification and sensitivities to follow. Aerobe ID + Suscept O:GNR Isolated O:KLEBPN Isolated Organism: 1.2 Antibiotic Interpretation SANDHYA Status Aerobe ID + SusceptGram negative jeffery Aerobe ID + Suscept O:GNR Isolated O:KLEBPN Isolated Organism: 1.2 Antibiotic Interpretation SANDHYA Status Aerobe ID + SusceptOrganism: Klebsiella pneumoniae. : Aerobe ID + Suscept O:GNR Isolated O:KLEBPN Isolated Organism: 1.2 Antibiotic Interpretation SANDHYA Status Aerobe ID + Suscept*ABNORMAL* Aerobe ID + Suscept O:GNR Isolated O:KLEBPN Isolated Organism: 1.2 Antibiotic Interpretation SANDHYA Status Aerobe ID + SusceptReceived pediatric bottle only. Aerobe ID + Suscept O:GNR Isolated O:KLEBPN Isolated Organism: 1.2 Antibiotic Interpretation SANDHYA Status Aerobe ID + SusceptKlebsiella pneumoniae. Aerobe ID + Suscept O:GNR Isolated O:KLEBPN Isolated Organism: 1.2 Antibiotic Interpretation SANDHYA Status Aerobe ID + SusceptSee Below For Report Aerobe ID + Suscept O:GNR Isolated O:KLEBPN Isolated Organism: 1.2 Antibiotic Interpretation SANDHYA Status Aerobe ID + SusceptSee Below For Report Aerobe ID + Suscept O:GNR Isolated O:KLEBPN Isolated Organism: 1.2 Antibiotic Interpretation SANDHYA Status Aerobe ID + SusceptPerformed at: [facility] Aerobe ID + Suscept O:GNR Isolated O:KLEBPN Isolated Organism: 1.2 Antibiotic Interpretation SANDHYA Status Aerobe ID + [id number] [place], [place] [id number] Aerobe ID + Suscept O:GNR Isolated O:KLEBPN Isolated Organism: 1.2 Antibiotic Interpretation SANDHYA Status Aerobe ID + SusceptLab Director: Daron Almanza PhD, Phone: [phone] Aerobe ID + Suscept O:GNR Isolated O:KLEBPN Isolated Organism: 1.2 Antibiotic Interpretation SANDHYA Status Aerobe ID + SusceptSee Below For Report Aerobe ID + Suscept O:GNR Isolated O:KLEBPN Isolated Organism: 1.2 Antibiotic Interpretation SANDHYA Status Aerobe ID + SusceptAMOXICILLIN/CLAVULANIC ACID S F Aerobe ID + Suscept O:GNR Isolated O:KLEBPN Isolated Organism: 1.2 Antibiotic Interpretation SANDHYA Status Aerobe ID + SusceptAmpicillin R F Aerobe ID + Suscept O:GNR Isolated O:KLEBPN Isolated Organism: 1.2 Antibiotic Interpretation SANDHYA Status Aerobe ID + SusceptCefazolin S F Aerobe ID + Suscept O:GNR Isolated O:KLEBPN Isolated Organism: 1.2 Antibiotic Interpretation SANDHYA Status Aerobe ID + SusceptCefepime S F Aerobe ID + Suscept O:GNR Isolated O:KLEBPN Isolated Organism: 1.2 Antibiotic Interpretation SANDHYA Status Aerobe ID + SusceptCefoxitin S F Aerobe ID + Suscept O:GNR Isolated O:KLEBPN Isolated Organism: 1.2 Antibiotic Interpretation SANDHYA Status Aerobe ID + SusceptCefpodoxime S F Aerobe ID + Suscept O:GNR Isolated O:KLEBPN Isolated Organism: 1.2 Antibiotic Interpretation SANDHYA Status Aerobe ID + SusceptCeftriaxone S F Aerobe ID + Suscept O:GNR Isolated O:KLEBPN Isolated Organism: 1.2 Antibiotic Interpretation SANDHYA Status Aerobe ID + SusceptCiprofloxacin S F Aerobe ID + Suscept O:GNR Isolated O:KLEBPN Isolated Organism: 1.2 Antibiotic Interpretation SANDHYA Status Aerobe ID + SusceptErtapenem S F Aerobe ID + Suscept O:GNR Isolated O:KLEBPN Isolated Organism: 1.2 Antibiotic Interpretation SANDHYA Status Aerobe ID + SusceptGentamicin S F Aerobe ID + Suscept O:GNR Isolated O:KLEBPN Isolated Organism: 1.2 Antibiotic Interpretation SANDHYA Status Aerobe ID + SusceptLevofloxacin S F Aerobe ID + Suscept O:GNR Isolated O:KLEBPN Isolated Organism: 1.2 Antibiotic Interpretation SANDHYA Status Aerobe ID + SusceptMeropenem S F Aerobe ID + Suscept O:GNR Isolated O:KLEBPN Isolated Organism: 1.2 Antibiotic Interpretation SANDHYA Status Aerobe ID + SusceptTetracycline S F Aerobe ID + Suscept O:GNR Isolated O:KLEBPN Isolated Organism: 1.2 Antibiotic Interpretation SANDHYA Status Aerobe ID + SusceptTobramycin S F Aerobe ID + Suscept O:GNR Isolated O:KLEBPN Isolated Organism: 1.2 Antibiotic Interpretation SANDHYA Status Aerobe ID + SusceptTrimethoprim/Sulfamethoxazole S F Aerobe ID + Suscept O:GNR Isolated O:KLEBPN Isolated Organism: 1.2 Antibiotic Interpretation SANDHYA Status Aerobe ID + SusceptPiperacillin/Tazobactam S F Aerobe ID + Suscept O:GNR Isolated O:KLEBPN Isolated Organism: 1.2 Antibiotic Interpretation SANDHYA Status Performing Lab:see note LC - [facility] LB SEE REPORT - Direct Sales Professional Id information not found for OBX-specific licensed sales producer legend CBC AUTO DIFF Reviewed date:08/16/2024 07:06:02 PM Interpretation: Performing Lab: Notes/Report: [facility] ,White Blood Count9.14.0-11.0 10 3/uLRed Blood Count3.064.20-5.40 10 6/uL Hemoglobin9.812.0-16.0 g/vMFokmbtsdqp80.236.0-48.0 %Mean Corpuscular Vihbuc22.2 81.0-99.0 fLMean Corpuscular Ujnddpxolb29.026.7-34.0 pgMean Corpuscular HGB Conc 34.829.9-35.2 g/dLRed Cell Distribution Width13.611.0-15.0 %Platelet Eswkw065 150-450 10 3/uLMean Platelet Bxnsbv87.19.5-13.5 fLNeutrophils Percent Auto82.6 43.0-75.0 %Lymphocytes Percent Auto11.620.5-60.0 %Monocytes Percent Auto4.81.7- 12.0 %Eosinophils Percent Auto0.60.9-7.0 %Basophils Percent Auto0.10.2-2.0 % Immature Granulocytes Pct Auto0.30.0-0.5 %Neutrophils Absolute Auto7.51.4-6.5 10 3/uLLymphocytes Absolute Auto1.11.2-3.8 10 3/uLMonocytes Absolute Auto0.40.3-0.8 10 3/uLEosinophils Absolute Auto0.10.0-0.7 10 3/uLBasophils Absolute Auto0.00.0- 0.1 10 3/uLImmature Granulocytes Abs Auto0.030.00-0.03 10 3/uLPerforming Lab:see noteML - [facility] LBLACTATE or LACTIC ACID Reviewed date:08/16/2024 07:06:02 PM Interpretation: Performing Lab: Notes/Report: [facility] ,Lactate/Lactic Acid0.60.4-2.0 mmol/LPerforming Lab:see noteML - [facility] LBPROF 14(COMP METB) Reviewed date:08/16/2024 07:06:02 PM Interpretation: Performing Lab: Notes/Report: [facility] ,Nipvyu010893-677 mmol/LPotassium3.33.5-5.1 mmol/FYvonbekr46707-450 mmol/LCarbon Pxckvoj94.521.0-32.0 mmol/LAnion Gap14.5Uwofeuq22608-200 mg/dLBlood Urea Jkhpazhv75.07.0-18.0 mg/dLCreatinine0.470.55-1.02 mg/dLEstimated GFR ( Shelby>60>=60 mL/min/1.73m 2Estimated GFR (Non- Caroline>60>=60 mL/min/1.73m 2BUN Creatinine Ratio27.4Pqapkuu1.58.5-10.1 mg/dLBilirubin Total0.70.2-1.0 mg/dL Aspartate Amino Abzqozggsgc9892-50 U/LAlanine Kocycesoksznkuxj7137-52 U/L Alkaline Eofbqxpwdbl06978-143 U/LTotal Protein5.86.4-8.2 g/dLAlbumin Level2.4 3.4-5.0 g/dLGlobulin3.4Albumin Globulin Ratio0.7Performing Lab:see noteML - [facility] LBAerobe ID + Suscept Reviewed date:08/21/2024 08:08:02 PM Interpretation: Performing Lab: Notes/Report: [facility] ,Aerobe ID + SusceptSee Below For Report O:KLEBPN Isolated Organism: 1.2 Antibiotic Interpretation SANDHYA Status Aerobe ID + Suscept WILL FOLLOW O:GNR Isolated Aerobe ID + Suscept O:KLEBPN Isolated Organism: 1.2 Antibiotic Interpretation SANDHYA Status Aerobe ID + Suscept WILL FOLLOW O:GNR Isolated Aerobe ID + SusceptSpecimen has been received and testing has been initiated. O:KLEBPN Isolated Organism: 1.2 Antibiotic Interpretation SANDHYA Status Aerobe ID + Suscept WILL FOLLOW O:GNR Isolated Aerobe ID + SusceptOrganism: Gram negative jeffery : O:KLEBPN Isolated Organism: 1.2 Antibiotic Interpretation SANDHYA Status Aerobe ID + Suscept WILL FOLLOW O:GNR Isolated Aerobe ID + Suscept*ABNORMAL* O:KLEBPN Isolated Organism: 1.2 Antibiotic Interpretation SANDHYA Status Aerobe ID + Suscept WILL FOLLOW O:GNR Isolated Aerobe ID + SusceptReceived anaerobic bottle only. O:KLEBPN Isolated Organism: 1.2 Antibiotic Interpretation SANDHYA Status Aerobe ID + Suscept WILL FOLLOW O:GNR Isolated Aerobe ID + SusceptIdentification and sensitivities to follow. O:KLEBPN Isolated Organism: 1.2 Antibiotic Interpretation SANDHYA Status Aerobe ID + Suscept WILL FOLLOW O:GNR Isolated Aerobe ID + SusceptGram negative jeffery O:KLEBPN Isolated Organism: 1.2 Antibiotic Interpretation SANDHYA Status Aerobe ID + Suscept WILL FOLLOW O:GNR Isolated Aerobe ID + SusceptOrganism: Klebsiella pneumoniae. : O:KLEBPN Isolated Organism: 1.2 Antibiotic Interpretation SANDHYA Status Aerobe ID + Suscept WILL FOLLOW O:GNR Isolated Aerobe ID + Suscept*ABNORMAL* O:KLEBPN Isolated Organism: 1.2 Antibiotic Interpretation SANDHYA Status Aerobe ID + Suscept WILL FOLLOW O:GNR Isolated Aerobe ID + SusceptReceived anaerobic bottle only. O:KLEBPN Isolated Organism: 1.2 Antibiotic Interpretation SANDHYA Status Aerobe ID + Suscept WILL FOLLOW O:GNR Isolated Aerobe ID + SusceptKlebsiella pneumoniae. O:KLEBPN Isolated Organism: 1.2 Antibiotic Interpretation SANDHYA Status Aerobe ID + Suscept WILL FOLLOW O:GNR Isolated Aerobe ID + SusceptSee Below For Report O:KLEBPN Isolated Organism: 1.2 Antibiotic Interpretation SANDHYA Status Aerobe ID + Suscept WILL FOLLOW O:GNR Isolated Aerobe ID + SusceptSee Below For Report O:KLEBPN Isolated Organism: 1.2 Antibiotic Interpretation SANDHYA Status Aerobe ID + Suscept WILL FOLLOW O:GNR Isolated Aerobe ID + SusceptSee Below For Report O:KLEBPN Isolated Organism: 1.2 Antibiotic Interpretation SANDHYA Status Aerobe ID + Suscept WILL FOLLOW O:GNR Isolated Aerobe ID + SusceptAMOXICILLIN/CLAVULANIC ACID S F O:KLEBPN Isolated Organism: 1.2 Antibiotic Interpretation SANDHYA Status Aerobe ID + Suscept WILL FOLLOW O:GNR Isolated Aerobe ID + SusceptAmpicillin R F O:KLEBPN Isolated Organism: 1.2 Antibiotic Interpretation SANDHYA Status Aerobe ID + Suscept WILL FOLLOW O:GNR Isolated Aerobe ID + SusceptCefazolin S F O:KLEBPN Isolated Organism: 1.2 Antibiotic Interpretation SANDHYA Status Aerobe ID + Suscept WILL FOLLOW O:GNR Isolated Aerobe ID + SusceptCefepime S F O:KLEBPN Isolated Organism: 1.2 Antibiotic Interpretation SANDHYA Status Aerobe ID + Suscept WILL FOLLOW O:GNR Isolated Aerobe ID + SusceptCefoxitin S F O:KLEBPN Isolated Organism: 1.2 Antibiotic Interpretation SANDHYA Status Aerobe ID + Suscept WILL FOLLOW O:GNR Isolated Aerobe ID + SusceptCefpodoxime S F O:KLEBPN Isolated Organism: 1.2 Antibiotic Interpretation SANDHYA Status Aerobe ID + Suscept WILL FOLLOW O:GNR Isolated Aerobe ID + SusceptCeftriaxone S F O:KLEBPN Isolated Organism: 1.2 Antibiotic Interpretation SANDHYA Status Aerobe ID + Suscept WILL FOLLOW O:GNR Isolated Aerobe ID + SusceptCiprofloxacin S F O:KLEBPN Isolated Organism: 1.2 Antibiotic Interpretation SANDHYA Status Aerobe ID + Suscept WILL FOLLOW O:GNR Isolated Aerobe ID + SusceptErtapenem S F O:KLEBPN Isolated Organism: 1.2 Antibiotic Interpretation SANDHYA Status Aerobe ID + Suscept WILL FOLLOW O:GNR Isolated Aerobe ID + SusceptGentamicin S F O:KLEBPN Isolated Organism: 1.2 Antibiotic Interpretation SANDHYA Status Aerobe ID + Suscept WILL FOLLOW O:GNR Isolated Aerobe ID + SusceptLevofloxacin S F O:KLEBPN Isolated Organism: 1.2 Antibiotic Interpretation SANDHYA Status Aerobe ID + Suscept WILL FOLLOW O:GNR Isolated Aerobe ID + SusceptMeropenem S F O:KLEBPN Isolated Organism: 1.2 Antibiotic Interpretation SANDHYA Status Aerobe ID + Suscept WILL FOLLOW O:GNR Isolated Aerobe ID + SusceptTetracycline S F O:KLEBPN Isolated Organism: 1.2 Antibiotic Interpretation SANDHYA Status Aerobe ID + Suscept WILL FOLLOW O:GNR Isolated Aerobe ID + SusceptTobramycin S F O:KLEBPN Isolated Organism: 1.2 Antibiotic Interpretation SANDHYA Status Aerobe ID + Suscept WILL FOLLOW O:GNR Isolated Aerobe ID + SusceptTrimethoprim/Sulfamethoxazole S F O:KLEBPN Isolated Organism: 1.2 Antibiotic Interpretation SANDHYA Status Aerobe ID + Suscept WILL FOLLOW O:GNR Isolated Aerobe ID + SusceptPiperacillin/Tazobactam S F O:KLEBPN Isolated Organism: 1.2 Antibiotic Interpretation SANDHYA Status Aerobe ID + Suscept WILL FOLLOW O:GNR Isolated Performing Lab:see note LC - [facility] LB SEE REPORT - Direct Sales Professional Id information not found for OBX-specific licensed sales producer legend Aerobe ID + Suscept Reviewed date:08/21/2024 08:08:02 PM Interpretation: Performing Lab: Notes/Report: [facility] ,Aerobe ID + SusceptSee Below For Report Aerobe ID + Suscept WILL FOLLOW O:GNR Isolated O:KLEBPN Isolated Organism: 1.2 Antibiotic Interpretation SANDHYA Status Aerobe ID + Suscept Aerobe ID + Suscept WILL FOLLOW O:GNR Isolated O:KLEBPN Isolated Organism: 1.2 Antibiotic Interpretation SANDHYA Status Aerobe ID + SusceptSpecimen has been received and testing has been initiated. Aerobe ID + Suscept WILL FOLLOW O:GNR Isolated O:KLEBPN Isolated Organism: 1.2 Antibiotic Interpretation SANDHYA Status Aerobe ID + SusceptOrganism: Gram negative jeffery : Aerobe ID + Suscept WILL FOLLOW O:GNR Isolated O:KLEBPN Isolated Organism: 1.2 Antibiotic Interpretation SANDHYA Status Aerobe ID + Suscept*ABNORMAL* Aerobe ID + Suscept WILL FOLLOW O:GNR Isolated O:KLEBPN Isolated Organism: 1.2 Antibiotic Interpretation SANDHYA Status Aerobe ID + SusceptReceived anaerobic bottle only. Aerobe ID + Suscept WILL FOLLOW O:GNR Isolated O:KLEBPN Isolated Organism: 1.2 Antibiotic Interpretation SANDHYA Status Aerobe ID + SusceptIdentification and sensitivities to follow. Aerobe ID + Suscept WILL FOLLOW O:GNR Isolated O:KLEBPN Isolated Organism: 1.2 Antibiotic Interpretation SANDHYA Status Aerobe ID + SusceptGram negative jeffery Aerobe ID + Suscept WILL FOLLOW O:GNR Isolated O:KLEBPN Isolated Organism: 1.2 Antibiotic Interpretation SANDHYA Status Aerobe ID + SusceptOrganism: Klebsiella pneumoniae. : Aerobe ID + Suscept WILL FOLLOW O:GNR Isolated O:KLEBPN Isolated Organism: 1.2 Antibiotic Interpretation SANDHYA Status Aerobe ID + Suscept*ABNORMAL* Aerobe ID + Suscept WILL FOLLOW O:GNR Isolated O:KLEBPN Isolated Organism: 1.2 Antibiotic Interpretation SANDHYA Status Aerobe ID + SusceptReceived anaerobic bottle only. Aerobe ID + Suscept WILL FOLLOW O:GNR Isolated O:KLEBPN Isolated Organism: 1.2 Antibiotic Interpretation SANDHYA Status Aerobe ID + SusceptKlebsiella pneumoniae. Aerobe ID + Suscept WILL FOLLOW O:GNR Isolated O:KLEBPN Isolated Organism: 1.2 Antibiotic Interpretation SANDHYA Status Aerobe ID + SusceptSee Below For Report Aerobe ID + Suscept WILL FOLLOW O:GNR Isolated O:KLEBPN Isolated Organism: 1.2 Antibiotic Interpretation SANDHYA Status Aerobe ID + SusceptSee Below For Report Aerobe ID + Suscept WILL FOLLOW O:GNR Isolated O:KLEBPN Isolated Organism: 1.2 Antibiotic Interpretation SANDHYA Status Aerobe ID + SusceptSee Below For Report Aerobe ID + Suscept WILL FOLLOW O:GNR Isolated O:KLEBPN Isolated Organism: 1.2 Antibiotic Interpretation SANDHYA Status Aerobe ID + SusceptAMOXICILLIN/CLAVULANIC ACID S F Aerobe ID + Suscept WILL FOLLOW O:GNR Isolated O:KLEBPN Isolated Organism: 1.2 Antibiotic Interpretation SANDHYA Status Aerobe ID + SusceptAmpicillin R F Aerobe ID + Suscept WILL FOLLOW O:GNR Isolated O:KLEBPN Isolated Organism: 1.2 Antibiotic Interpretation SANDHYA Status Aerobe ID + SusceptCefazolin S F Aerobe ID + Suscept WILL FOLLOW O:GNR Isolated O:KLEBPN Isolated Organism: 1.2 Antibiotic Interpretation SANDHYA Status Aerobe ID + SusceptCefepime S F Aerobe ID + Suscept WILL FOLLOW O:GNR Isolated O:KLEBPN Isolated Organism: 1.2 Antibiotic Interpretation SANDHYA Status Aerobe ID + SusceptCefoxitin S F Aerobe ID + Suscept WILL FOLLOW O:GNR Isolated O:KLEBPN Isolated Organism: 1.2 Antibiotic Interpretation SANDHYA Status Aerobe ID + SusceptCefpodoxime S F Aerobe ID + Suscept WILL FOLLOW O:GNR Isolated O:KLEBPN Isolated Organism: 1.2 Antibiotic Interpretation SANDHYA Status Aerobe ID + SusceptCeftriaxone S F Aerobe ID + Suscept WILL FOLLOW O:GNR Isolated O:KLEBPN Isolated Organism: 1.2 Antibiotic Interpretation SANDHYA Status Aerobe ID + SusceptCiprofloxacin S F Aerobe ID + Suscept WILL FOLLOW O:GNR Isolated O:KLEBPN Isolated Organism: 1.2 Antibiotic Interpretation SANDHYA Status Aerobe ID + SusceptErtapenem S F Aerobe ID + Suscept WILL FOLLOW O:GNR Isolated O:KLEBPN Isolated Organism: 1.2 Antibiotic Interpretation SANDHYA Status Aerobe ID + SusceptGentamicin S F Aerobe ID + Suscept WILL FOLLOW O:GNR Isolated O:KLEBPN Isolated Organism: 1.2 Antibiotic Interpretation SANDHYA Status Aerobe ID + SusceptLevofloxacin S F Aerobe ID + Suscept WILL FOLLOW O:GNR Isolated O:KLEBPN Isolated Organism: 1.2 Antibiotic Interpretation SANDHYA Status Aerobe ID + SusceptMeropenem S F Aerobe ID + Suscept WILL FOLLOW O:GNR Isolated O:KLEBPN Isolated Organism: 1.2 Antibiotic Interpretation SANDHYA Status Aerobe ID + SusceptTetracycline S F Aerobe ID + Suscept WILL FOLLOW O:GNR Isolated O:KLEBPN Isolated Organism: 1.2 Antibiotic Interpretation SANDHYA Status Aerobe ID + SusceptTobramycin S F Aerobe ID + Suscept WILL FOLLOW O:GNR Isolated O:KLEBPN Isolated Organism: 1.2 Antibiotic Interpretation SANDHYA Status Aerobe ID + SusceptTrimethoprim/Sulfamethoxazole S F Aerobe ID + Suscept WILL FOLLOW O:GNR Isolated O:KLEBPN Isolated Organism: 1.2 Antibiotic Interpretation SANDHYA Status Aerobe ID + SusceptPiperacillin/Tazobactam S F Aerobe ID + Suscept WILL FOLLOW O:GNR Isolated O:KLEBPN Isolated Organism: 1.2 Antibiotic Interpretation SANDHYA Status Performing Lab:see note LC - [facility] LB SEE REPORT - Direct Sales Professional Id information not found for OBX-specific licensed sales producer legend Aerobe ID + Suscept Reviewed date:08/19/2024 07:52:14 PM Interpretation: Performing Lab: Notes/Report: [facility] ,Aerobe ID + SusceptSee Below For Report Aerobe ID + Suscept O:GNR Isolated O:KLEBPN Isolated Organism: 1.2 Antibiotic Interpretation SANDHYA Status Aerobe ID + SusceptSpecimen has been received and testing has been initiated. Aerobe ID + Suscept O:GNR Isolated O:KLEBPN Isolated Organism: 1.2 Antibiotic Interpretation SANDHYA Status Aerobe ID + SusceptOrganism: Gram negative jeffery : Aerobe ID + Suscept O:GNR Isolated O:KLEBPN Isolated Organism: 1.2 Antibiotic Interpretation SANDHYA Status Aerobe ID + Suscept*ABNORMAL* Aerobe ID + Suscept O:GNR Isolated O:KLEBPN Isolated Organism: 1.2 Antibiotic Interpretation SANDHYA Status Aerobe ID + SusceptReceived aerobic bottle only. Aerobe ID + Suscept O:GNR Isolated O:KLEBPN Isolated Organism: 1.2 Antibiotic Interpretation SANDHYA Status Aerobe ID + SusceptIdentification and sensitivities to follow. Aerobe ID + Suscept O:GNR Isolated O:KLEBPN Isolated Organism: 1.2 Antibiotic Interpretation SANDHYA Status Aerobe ID + SusceptGram negative jeffery Aerobe ID + Suscept O:GNR Isolated O:KLEBPN Isolated Organism: 1.2 Antibiotic Interpretation SANDHYA Status Aerobe ID + SusceptOrganism: Klebsiella pneumoniae. : Aerobe ID + Suscept O:GNR Isolated O:KLEBPN Isolated Organism: 1.2 Antibiotic Interpretation SANDHYA Status Aerobe ID + Suscept*ABNORMAL* Aerobe ID + Suscept O:GNR Isolated O:KLEBPN Isolated Organism: 1.2 Antibiotic Interpretation SANDHYA Status Aerobe ID + SusceptReceived aerobic bottle only. Aerobe ID + Suscept O:GNR Isolated O:KLEBPN Isolated Organism: 1.2 Antibiotic Interpretation SANDHYA Status Aerobe ID + SusceptKlebsiella pneumoniae. Aerobe ID + Suscept O:GNR Isolated O:KLEBPN Isolated Organism: 1.2 Antibiotic Interpretation SANDHYA Status Aerobe ID + SusceptSee Below For Report Aerobe ID + Suscept O:GNR Isolated O:KLEBPN Isolated Organism: 1.2 Antibiotic Interpretation SANDHYA Status Aerobe ID + SusceptSee Below For Report Aerobe ID + Suscept O:GNR Isolated O:KLEBPN Isolated Organism: 1.2 Antibiotic Interpretation SANDHYA Status Aerobe ID + SusceptPerformed at: [facility] Aerobe ID + Suscept O:GNR Isolated O:KLEBPN Isolated Organism: 1.2 Antibiotic Interpretation SANDHYA Status Aerobe ID + [id number] [place], [place] [id number] Aerobe ID + Suscept O:GNR Isolated O:KLEBPN Isolated Organism: 1.2 Antibiotic Interpretation SANDHYA Status Aerobe ID + SusceptLab Director: Daron Almanza PhD, Phone: [phone] Aerobe ID + Suscept O:GNR Isolated O:KLEBPN Isolated Organism: 1.2 Antibiotic Interpretation SANDHYA Status Aerobe ID + SusceptSee Below For Report Aerobe ID + Suscept O:GNR Isolated O:KLEBPN Isolated Organism: 1.2 Antibiotic Interpretation SANDHYA Status Aerobe ID + SusceptAMOXICILLIN/CLAVULANIC ACID S F Aerobe ID + Suscept O:GNR Isolated O:KLEBPN Isolated Organism: 1.2 Antibiotic Interpretation SANDHYA Status Aerobe ID + SusceptAmpicillin R F Aerobe ID + Suscept O:GNR Isolated O:KLEBPN Isolated Organism: 1.2 Antibiotic Interpretation SANDHYA Status Aerobe ID + SusceptCefazolin S F Aerobe ID + Suscept O:GNR Isolated O:KLEBPN Isolated Organism: 1.2 Antibiotic Interpretation SANDHYA Status Aerobe ID + SusceptCefepime S F Aerobe ID + Suscept O:GNR Isolated O:KLEBPN Isolated Organism: 1.2 Antibiotic Interpretation SANDHYA Status Aerobe ID + SusceptCefoxitin S F Aerobe ID + Suscept O:GNR Isolated O:KLEBPN Isolated Organism: 1.2 Antibiotic Interpretation SANDHYA Status Aerobe ID + SusceptCefpodoxime S F Aerobe ID + Suscept O:GNR Isolated O:KLEBPN Isolated Organism: 1.2 Antibiotic Interpretation SANDHYA Status Aerobe ID + SusceptCeftriaxone S F Aerobe ID + Suscept O:GNR Isolated O:KLEBPN Isolated Organism: 1.2 Antibiotic Interpretation SANDHYA Status Aerobe ID + SusceptCiprofloxacin S F Aerobe ID + Suscept O:GNR Isolated O:KLEBPN Isolated Organism: 1.2 Antibiotic Interpretation SANDHYA Status Aerobe ID + SusceptErtapenem S F Aerobe ID + Suscept O:GNR Isolated O:KLEBPN Isolated Organism: 1.2 Antibiotic Interpretation SANDHYA Status Aerobe ID + SusceptGentamicin S F Aerobe ID + Suscept O:GNR Isolated O:KLEBPN Isolated Organism: 1.2 Antibiotic Interpretation SANDHYA Status Aerobe ID + SusceptLevofloxacin S F Aerobe ID + Suscept O:GNR Isolated O:KLEBPN Isolated Organism: 1.2 Antibiotic Interpretation SANDHYA Status Aerobe ID + SusceptMeropenem S F Aerobe ID + Suscept O:GNR Isolated O:KLEBPN Isolated Organism: 1.2 Antibiotic Interpretation SANDHYA Status Aerobe ID + SusceptTetracycline S F Aerobe ID + Suscept O:GNR Isolated O:KLEBPN Isolated Organism: 1.2 Antibiotic Interpretation SANDHYA Status Aerobe ID + SusceptTobramycin S F Aerobe ID + Suscept O:GNR Isolated O:KLEBPN Isolated Organism: 1.2 Antibiotic Interpretation SANDHYA Status Aerobe ID + SusceptTrimethoprim/Sulfamethoxazole S F Aerobe ID + Suscept O:GNR Isolated O:KLEBPN Isolated Organism: 1.2 Antibiotic Interpretation SANDHYA Status Aerobe ID + SusceptPiperacillin/Tazobactam S F Aerobe ID + Suscept O:GNR Isolated O:KLEBPN Isolated Organism: 1.2 Antibiotic Interpretation SANDHYA Status Performing Lab:see note LC - [facility] LB SEE REPORT - Direct Sales Professional Id information not found for OBX-specific licensed sales producer legend Aerobe ID + Suscept Reviewed date:08/19/2024 07:52:14 PM Interpretation: Performing Lab: Notes/Report: [facility] ,Aerobe ID + SusceptSee Below For Report Aerobe ID + Suscept O:GNR Isolated O:KLEBPN Isolated Organism: 1.2 Antibiotic Interpretation SANDHYA Status Aerobe ID + SusceptSpecimen has been received and testing has been initiated. Aerobe ID + Suscept O:GNR Isolated O:KLEBPN Isolated Organism: 1.2 Antibiotic Interpretation SANDHYA Status Aerobe ID + SusceptOrganism: Gram negative jeffery : Aerobe ID + Suscept O:GNR Isolated O:KLEBPN Isolated Organism: 1.2 Antibiotic Interpretation SANDHYA Status Aerobe ID + Suscept*ABNORMAL* Aerobe ID + Suscept O:GNR Isolated O:KLEBPN Isolated Organism: 1.2 Antibiotic Interpretation SANDHYA Status Aerobe ID + SusceptReceived aerobic bottle only. Aerobe ID + Suscept O:GNR Isolated O:KLEBPN Isolated Organism: 1.2 Antibiotic Interpretation SANDHYA Status Aerobe ID + SusceptIdentification and sensitivities to follow. Aerobe ID + Suscept O:GNR Isolated O:KLEBPN Isolated Organism: 1.2 Antibiotic Interpretation SANDHYA Status Aerobe ID + SusceptGram negative jeffery Aerobe ID + Suscept O:GNR Isolated O:KLEBPN Isolated Organism: 1.2 Antibiotic Interpretation SANDHYA Status Aerobe ID + SusceptOrganism: Klebsiella pneumoniae. : Aerobe ID + Suscept O:GNR Isolated O:KLEBPN Isolated Organism: 1.2 Antibiotic Interpretation SANDHYA Status Aerobe ID + Suscept*ABNORMAL* Aerobe ID + Suscept O:GNR Isolated O:KLEBPN Isolated Organism: 1.2 Antibiotic Interpretation SANDHYA Status Aerobe ID + SusceptReceived aerobic bottle only. Aerobe ID + Suscept O:GNR Isolated O:KLEBPN Isolated Organism: 1.2 Antibiotic Interpretation SANDHYA Status Aerobe ID + SusceptKlebsiella pneumoniae. Aerobe ID + Suscept O:GNR Isolated O:KLEBPN Isolated Organism: 1.2 Antibiotic Interpretation SANDHYA Status Aerobe ID + SusceptSee Below For Report Aerobe ID + Suscept O:GNR Isolated O:KLEBPN Isolated Organism: 1.2 Antibiotic Interpretation SANDHYA Status Aerobe ID + SusceptSee Below For Report Aerobe ID + Suscept O:GNR Isolated O:KLEBPN Isolated Organism: 1.2 Antibiotic Interpretation SANDHYA Status Aerobe ID + SusceptPerformed at: [facility] Aerobe ID + Suscept O:GNR Isolated O:KLEBPN Isolated Organism: 1.2 Antibiotic Interpretation SANDHYA Status Aerobe ID + [id number] [place], [place] [id number] Aerobe ID + Suscept O:GNR Isolated O:KLEBPN Isolated Organism: 1.2 Antibiotic Interpretation SANDHYA Status Aerobe ID + SusceptLab Director: Daron Almanza PhD, Phone: [phone] Aerobe ID + Suscept O:GNR Isolated O:KLEBPN Isolated Organism: 1.2 Antibiotic Interpretation SANDHYA Status Aerobe ID + SusceptSee Below For Report Aerobe ID + Suscept O:GNR Isolated O:KLEBPN Isolated Organism: 1.2 Antibiotic Interpretation SANDHYA Status Aerobe ID + SusceptAMOXICILLIN/CLAVULANIC ACID I F Aerobe ID + Suscept O:GNR Isolated O:KLEBPN Isolated Organism: 1.2 Antibiotic Interpretation SANDHYA Status Aerobe ID + SusceptAmpicillin R F Aerobe ID + Suscept O:GNR Isolated O:KLEBPN Isolated Organism: 1.2 Antibiotic Interpretation SANDHYA Status Aerobe ID + SusceptCefazolin S F Aerobe ID + Suscept O:GNR Isolated O:KLEBPN Isolated Organism: 1.2 Antibiotic Interpretation SANDHYA Status Aerobe ID + SusceptCefepime S F Aerobe ID + Suscept O:GNR Isolated O:KLEBPN Isolated Organism: 1.2 Antibiotic Interpretation SANDHYA Status Aerobe ID + SusceptCefoxitin S F Aerobe ID + Suscept O:GNR Isolated O:KLEBPN Isolated Organism: 1.2 Antibiotic Interpretation SANDHYA Status Aerobe ID + SusceptCefpodoxime S F Aerobe ID + Suscept O:GNR Isolated O:KLEBPN Isolated Organism: 1.2 Antibiotic Interpretation SANDHYA Status Aerobe ID + SusceptCeftriaxone S F Aerobe ID + Suscept O:GNR Isolated O:KLEBPN Isolated Organism: 1.2 Antibiotic Interpretation SANDHYA Status Aerobe ID + SusceptCiprofloxacin S F Aerobe ID + Suscept O:GNR Isolated O:KLEBPN Isolated Organism: 1.2 Antibiotic Interpretation SANDHYA Status Aerobe ID + SusceptErtapenem S F Aerobe ID + Suscept O:GNR Isolated O:KLEBPN Isolated Organism: 1.2 Antibiotic Interpretation SANDHYA Status Aerobe ID + SusceptGentamicin S F Aerobe ID + Suscept O:GNR Isolated O:KLEBPN Isolated Organism: 1.2 Antibiotic Interpretation SANDHYA Status Aerobe ID + SusceptLevofloxacin S F Aerobe ID + Suscept O:GNR Isolated O:KLEBPN Isolated Organism: 1.2 Antibiotic Interpretation SANDHYA Status Aerobe ID + SusceptMeropenem S F Aerobe ID + Suscept O:GNR Isolated O:KLEBPN Isolated Organism: 1.2 Antibiotic Interpretation SANDHYA Status Aerobe ID + SusceptTetracycline S F Aerobe ID + Suscept O:GNR Isolated O:KLEBPN Isolated Organism: 1.2 Antibiotic Interpretation SANDHYA Status Aerobe ID + SusceptTobramycin S F Aerobe ID + Suscept O:GNR Isolated O:KLEBPN Isolated Organism: 1.2 Antibiotic Interpretation SANDHYA Status Aerobe ID + SusceptTrimethoprim/Sulfamethoxazole S F Aerobe ID + Suscept O:GNR Isolated O:KLEBPN Isolated Organism: 1.2 Antibiotic Interpretation SANDHYA Status Aerobe ID + SusceptPiperacillin/Tazobactam S F Aerobe ID + Suscept O:GNR Isolated O:KLEBPN Isolated Organism: 1.2 Antibiotic Interpretation SANDHYA Status Performing Lab:see note LC - [facility] LB SEE REPORT - Direct Sales Professional Id information not found for OBX-specific licensed sales producer legend GLYCOHEMOGLOBIN A1C Reviewed date:12/22/2023 09:03:29 PM Interpretation: Performing Lab: Notes/Report: [facility] ,Glycohemoglobin A1C4.84.5-6.2 % ADA RECOMMENDED LIMIT 4.0 - 6.0 ADA THERAPEUTIC TARGET < 7.0 ACTION SUGGESTED > 7.0 Estimated Average [id number] Lab:see noteML - [facility] LB DRUG SCREEN RAPID (URINE) Reviewed date:08/28/2024 06:06:36 PM Interpretation: Performing Lab: Notes/Report: [facility] ,Cannabinoid Screen UrineNEGATIVENEGATIVEPhencyclidine Screen UrineNEGATIVE NEGATIVECocaine Screen UrineNEGATIVENEGATIVEMethamphetamines Screen Urine NEGATIVENEGATIVEOpiate Screen UrinePOSITIVENEGATIVEAmphetamine Screen Urine NEGATIVENEGATIVEBenzodiazepines Screen UrineNEGATIVENEGATIVETricyclic Antidepressant UrineNEGATIVENEGATIVEMethadone Screen UrineNEGATIVENEGATIVE Barbiturates Screen UrineNEGATIVENEGATIVEOxycodone Screen UrineNEGATIVENEGATIVE Buprenorphine Screen UrineNEGATIVENEGATIVE DRUG CLASS TEST SYSTEM CUT-OFF CONCENTRATIONS ARE FOLLOWS: AMP (Amphetamine): 500 ng/mL BAR (Barbiturates): 200 ng/mL BZO (Benzodiazepines): 150 ng/mL BUP (Buprenorphine): 10 ng/mL NAIF (Cocaine): 150 ng/mL mAMP (Methamphetamine): 500 ng/mL MTD (Methadone): 200 ng/mL OPI (Opiates): 100 ng/mL OXY (Oxycodone): 100 ng/mL PCP (Phencyclidine): 25 ng/mL THC (Cannabinoids): 50 ng/mL TCA (Trycyclic Antidepressants): 300 ng/mL Performing Lab:see note - [facility] LBLACTATE or LACTIC ACID Reviewed date:08/28/2024 06:06:36 PM Interpretation: Performing Lab: Notes/Report: [facility] ,Lactate/Lactic Acid1.40.4-2.0 mmol/LPerforming Lab:see noteML - [facility] LBLIPASE Reviewed date:08/28/2024 06:06:36 PM Interpretation: Performing Lab: Notes/Report: [facility] ,Tebgtd83.016.0-77.0 U/LPerforming Lab:see noteML - [facility] LBUA (CLEAN or CATCH) MANUAL MACHINIST or MICRO IF IND. Reviewed date:08/28/2024 06:06:36 PM Interpretation: Performing Lab: Notes/Report: [facility] ,Color UrineLT. YELLOWYELLOWClarity UrineCLEARCLEARSpecific [place] Urine1.015 1.005-1.025pH Urine6.05.0-9.0Protein UrineNEGATIVENEG/TRACE mg/dLGlucose Urine UANEGATIVENEGATIVE mg/dLBilirubin UrineNEGATIVENEGATIVEKetones UrineNEGATIVE NEGATIVE mg/dLBlood UrineNEGATIVENEGATIVENitrite UrineNEGATIVENEGATIVE Urobilinogen Urine0.20.2-1.0 EU/dLLeukocyte Esterase UrineNEGATIVENEGATIVEUrine Microscopic IndicatedNOPerforming Lab:see noteML - [facility] LB Manual Differential Reviewed date:08/28/2024 06:06:36 PM Interpretation: Performing Lab: Notes/Report: [facility] ,Segmented Neutrophils % Evnprv35.043.0-75.0Lymphocytes Percent Lzjupa06.020.5- 60.0 %Monocytes Percent Manual2.01.7-12.0 %Eosinophils Percent Manual0.00.9-7.0 %Basophils Percent Manual2.00.2-2.0 %Segmented Neut Absolute Manual4.471.4-6.5 10 3/uLLymphocytes Absolute Manual0.521.20-3.80 10 3/uLMonocytes Absolute Manual 0.100.30-0.80 10 3/uLEosinophils Absolute Manual0.000.00-0.70 10 3/uLBasophils Abs Manual0.100.00-0.10 10 3/uLPerforming Lab:see noteML - [facility] LBCBC AUTO DIFF Reviewed date:12/22/2023 09:03:29 PM Interpretation: Performing Lab: Notes/Report: [facility] ,White Blood Count4.94.0-11.0 10 3/uLRed Blood Count4.414.20-5.40 10 6/uL Bsbejlvbhi92.812.0-16.0 g/bNMzfxrqfkji81.536.0-48.0 %Mean Corpuscular Twjkjj81.8 81.0-99.0 fLMean Corpuscular Sarcqcwecd57.026.7-34.0 pgMean Corpuscular HGB Conc 31.629.9-35.2 g/dLRed Cell Distribution Width19.311.0-15.0 %Platelet Ztlnz079 150-450 10 3/uLMean Platelet Pzswli24.79.5-13.5 fLNeutrophils Percent Auto77.1 43.0-75.0 %Lymphocytes Percent Auto16.820.5-60.0 %Monocytes Percent Auto4.31.7- 12.0 %Eosinophils Percent Auto0.80.9-7.0 %Basophils Percent Auto0.80.2-2.0 % Immature Granulocytes Pct Auto0.20.0-0.5 %Neutrophils Absolute Auto3.81.4-6.5 10 3/uLLymphocytes Absolute Auto0.81.2-3.8 10 3/uLMonocytes Absolute Auto0.20.3-0.8 10 3/uLEosinophils Absolute Auto0.00.0-0.7 10 3/uLBasophils Absolute Auto0.00.0- 0.1 10 3/uLImmature Granulocytes Abs Auto0.010.00-0.03 10 3/uLPerforming Lab:see noteML - [facility] LBECG 12 lead Reviewed date:08/30/2024 05:17:51 PM Interpretation: Performing Lab: Notes/Report: Source Facility: [facility]-[address] [place] [address] [place] [address] Electrocardiograph Report Signed Patient: JUAN GARCIA MR#: [id number] : 1990 Acct:[id number] Age/Sex: 34 / F ADM Date: 08/28/24 Loc: [place] 218-[address]: Kal Wilson M.D. 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 Ordering Physician: Kal Wilson M.D. 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 Signed By: 08/30/24 1330 DD/ 0528 TD/TT: Dolphin Trainer:Blood Culture 1 Reviewed date:09/04/2024 07:21:01 PM Interpretation: Performing Lab: Notes/Report: LEFT UPPER ARM [facility] ,Blood Culture 1See Below For Report Blood Culture 1 NG5D NO GROWTH AT 5 DAYS.^NO GROWTH AT 5 DAYS. Performing Lab:see [facility] LBBlood Culture 2 Reviewed date:09/04/2024 07:21:01 PM Interpretation: Performing Lab: Notes/Report: KUMARI LINE [facility] ,Blood Culture 2See Below For Report NG5D NO GROWTH AT 5 DAYS.^NO GROWTH AT 5 DAYS. Blood Culture 2 Performing Lab:see note - [facility] LBCA echo doppler complete Reviewed date:09/04/2024 02:45:30 PM Interpretation: Performing Lab: Notes/Report: Source Facility: [place] [address] Cardiology Report Signed Patient: JUAN GARCIA MR#: [id number] : 1990 Acct:[id number] Age/Sex: 34 / F ADM Date: 08/28/24 Loc: [place] 218-[address]: Kal Wilson M.D. Ordering Physician: Kal Wilson M.D. Date of Service: 09/01/24 Procedure(s): CA echo doppler complete Accession Number(s): [id number] cc: Britt Alas M.D.; Kal Wilson M.D. Patient Name: JUAN GARCIA MR#: [id number] : 1990 Exam Date: 09/01/2024 Ordering Doctor: [...] Area (VTI): 3.35 cm2, 3.28 cm2 Deceleration Cotton: Pressure Half-Time: Peak Velocity(Antegrade Flow): 1.25 m/s, [...] M.D. Signed By: 09/03/241826 DD/ 24 TD/TT: Dolphin Trainer:LACTATE or LACTIC ACID Reviewed date:09/17/2024 07:49:06 PM Interpretation: Performing Lab: Notes/Report: [facility] ,Lactate/Lactic Acid0.60.4-2.0 mmol/LPerforming Lab:see noteML - [facility] LBCRP Reviewed date:09/20/2024 12:30:47 PM Interpretation: Performing Lab: Notes/Report: [facility] ,C Reactive Protein<0.50<=0.50 mg/dLPerforming Lab:see note - [facility] LBUA Micro, reflex to culture Reviewed date:09/20/2024 12:30:47 PM Interpretation: Performing Lab: Notes/Report: [facility] ,Color UrineLT. YELLOWYELLOWClarity UrineCLEARCLEARSpecific [place] Urine1.010 1.005-1.025pH Urine6.55.0-9.0Protein UrineNEGATIVENEG/TRACE mg/dLGlucose Urine UANEGATIVENEGATIVE mg/dLBilirubin UrineNEGATIVENEGATIVEKetones UrineNEGATIVE NEGATIVE mg/dLBlood UrineNEGATIVENEGATIVENitrite UrineNEGATIVENEGATIVE Urobilinogen Urine0.20.2-1.0 EU/dLLeukocyte Esterase UrineNEGATIVENEGATIVEWBC UrineNONE SEENNONE SEEN #/HPFRBC UrineNONE SEEN0-2 #/HPFBacteria UrineNONE SEEN NONE SEEN #/HPFMucus UrineNONE SEENNONE SEENSquamous Epithelial Cell UrineRARE NONE/RARE #/LPFCrystals Seen?None SeenNone Seen #/HPFCast Seen?NONE SEENNONE SEEN #/LPFUrine Culture IndicatedNOPerforming Lab:see note - [facility] LBBlood Culture 1 Reviewed date:10/10/2024 07:54:38 PM Interpretation: Performing Lab: Notes/Report: [facility] ,Blood Culture 1See Below For Report Blood Culture 1 NG5D NO GROWTH AT 5 DAYS.^NO GROWTH AT 5 DAYS. Performing Lab:see noteML - [facility] LBBlood Culture 2 Reviewed date:10/10/2024 07:54:38 PM Interpretation: Performing Lab: Notes/Report: PEDS BOTTLE [facility] ,Blood Culture 2See Below For Report Blood Culture 2 NG5D NO GROWTH AT 5 DAYS.^NO GROWTH AT 5 DAYS. Performing Lab:see note - [facility] LBUA RANDOM W or MICROSCOPIC Reviewed date:10/24/2024 02:11:49 PM Interpretation: Performing Lab: Notes/Report: [facility] ,Color UrineLT. YELLOWYELLOWClarity UrineCLEARCLEARSpecific [place] Urine<=1.005 1.005-1.025pH Urine6.05.0-9.0Protein UrineNEGATIVENEG/TRACE mg/dLGlucose Urine UANEGATIVENEGATIVE mg/dLBilirubin UrineNEGATIVENEGATIVEKetones UrineNEGATIVE NEGATIVE mg/dLBlood UrineNEGATIVENEGATIVENitrite UrineNEGATIVENEGATIVE Urobilinogen Urine0.20.2-1.0 EU/dLLeukocyte Esterase UrineNEGATIVENEGATIVEWBC Urine0-2NONE SEEN #/HPFRBC Urine0-20-2 #/HPFBacteria UrineTRACENONE SEEN #/HPF Mucus UrineNONE SEENNONE SEENSquamous Epithelial Cell UrineFEWNONE/RARE #/LPF Crystals Seen?None SeenNone Seen #/HPFCast Seen?NONE SEENNONE SEEN #/LPFUrine Culture IndicatedNOPerforming Lab:see noteML - [facility] LBECG 12 lead Reviewed date:10/26/2024 07:01:06 PM Interpretation: Performing Lab: Notes/Report: Source Facility: [place] [address] Electrocardiograph Report Signed Patient: JUAN GARCIA MR#: [id number] : 1990 Acct:[id number] Age/Sex: 34 / F ADM Date: 10/24/24 Loc: ER Attending Dr: Ordering Physician: Leslie Terrazas M.D. 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 Signed By: 10/26/24 1333 10/26/24 1333 DD/ TD/TT: Dolphin Trainer:Blood Culture 1 Reviewed date:10/31/2024 05:15:55 PM Interpretation: Performing Lab: Notes/Report: [facility] ,Blood Culture 1See Below For Report NG5D NO GROWTH AT 5 DAYS.^NO GROWTH AT 5 DAYS. Blood Culture 1 Performing Lab:see noteML - [facility] LBBlood Culture 2 Reviewed date:10/31/2024 05:15:55 PM Interpretation: Performing Lab: Notes/Report: AEROBIC BOTTLE ONLY [facility] ,Blood Culture 2See Below For Report NG5D NO GROWTH AT 5 DAYS.^NO GROWTH AT 5 DAYS. Blood Culture 2 Performing Lab:see noteML - [facility] LBCBC AUTO DIFF Reviewed date:10/29/2024 12:41:46 PM Interpretation: Performing Lab: Notes/Report: [facility] ,White Blood Count3.44.0-11.0 10 3/uLRed Blood Count3.934.20-5.40 10 6/uL Vqdfltmtgp21.612.0-16.0 g/oCTxxcppctpc23.536.0-48.0 %Mean Corpuscular Nzuzmd48.8 81.0-99.0 fLMean Corpuscular Vmcunfsars33.526.7-34.0 pgMean Corpuscular HGB Conc 33.629.9-35.2 g/dLRed Cell Distribution Width13.411.0-15.0 %Platelet Kgsid530 150-450 10 3/uLMean Platelet Jcvuqi61.39.5-13.5 fLNeutrophils Percent Auto47.0 43.0-75.0 %Lymphocytes Percent Auto43.820.5-60.0 %Monocytes Percent Auto7.71.7- 12.0 %Eosinophils Percent Auto1.20.9-7.0 %Basophils Percent Auto0.30.2-2.0 % Immature Granulocytes Pct Auto0.00.0-0.5 %Neutrophils Absolute Auto1.61.4-6.5 10 3/uLLymphocytes Absolute Auto1.51.2-3.8 10 3/uLMonocytes Absolute Auto0.30.3- 0.8 10 3/uLEosinophils Absolute Auto0.00.0-0.7 10 3/uLBasophils Absolute Auto0.0 0.0-0.1 10 3/uLImmature Granulocytes Abs Auto0.000.00-0.03 10 3/uLPerforming Lab:see noteML - [facility] LBLIPASE Reviewed date:10/29/2024 12:41:46 PM Interpretation: Performing Lab: Notes/Report: [facility] ,Btlocy93.016.0-77.0 U/LPerforming Lab:see noteML - [facility] LB MAGNESIUM Reviewed date:10/29/2024 12:41:46 PM Interpretation: Performing Lab: Notes/Report: [facility] ,Magnesium1.71.8-2.4 mg/dLPerforming Lab:see noteML - [facility] LB PROF 14(COMP METB) Reviewed date:10/29/2024 12:41:46 PM Interpretation: Performing Lab: Notes/Report: [facility] ,Pjydna012565-236 mmol/LPotassium3.63.5-5.1 mmol/FCztrzdqw37441-228 mmol/LCarbon Olklxnv14.721.0-32.0 mmol/LAnion Gap13.7Tymhhxz9371-561 mg/dLBlood Urea Nitrogen5.07.0-18.0 mg/dLCreatinine0.660.55-1.02 mg/dLEstimated GFR ( [place]>60>=60 mL/min/1.73m 2Estimated GFR (Non- Caroline>60>=60 mL/min/1.73m 2BUN Creatinine Ratio7.3Bapzfdv3.18.5-10.1 mg/dLBilirubin Total0.40.2-1.0 mg/dL Aspartate Amino Cidvzqbtfvf1782-86 U/LAlanine Pnafbdkablejfped2463-97 U/L Alkaline Ilvzfvmivir1005-794 U/LTotal Protein6.56.4-8.2 g/dLAlbumin Level3.53.4- 5.0 g/dLGlobulin3.0Albumin Globulin Ratio1.2Performing Lab:see noteML - [facility] LBCBC AUTO DIFF Reviewed date:10/30/2024 01:16:30 PM Interpretation: Performing Lab: Notes/Report: [facility] ,White Blood Count4.54.0-11.0 10 3/uLRed Blood Count3.884.20-5.40 10 6/uL Fsoiapiafy91.712.0-16.0 g/iZUyhhuntpnq40.736.0-48.0 %Mean Corpuscular Glghdu51.4 81.0-99.0 fLMean Corpuscular Oefrxmfvdy84.226.7-34.0 pgMean Corpuscular HGB Conc 33.729.9-35.2 g/dLRed Cell Distribution Width13.211.0-15.0 %Platelet Vbzod803 150-450 10 3/uLMean Platelet Gskczg04.29.5-13.5 fLNeutrophils Percent Auto49.5 43.0-75.0 %Lymphocytes Percent Auto41.020.5-60.0 %Monocytes Percent Auto7.71.7- 12.0 %Eosinophils Percent Auto0.90.9-7.0 %Basophils Percent Auto0.90.2-2.0 % Immature Granulocytes Pct Auto0.00.0-0.5 %Neutrophils Absolute Auto2.31.4-6.5 10 3/uLLymphocytes Absolute Auto1.91.2-3.8 10 3/uLMonocytes Absolute Auto0.40.3- 0.8 10 3/uLEosinophils Absolute Auto0.00.0-0.7 10 3/uLBasophils Absolute Auto0.0 0.0-0.1 10 3/uLImmature Granulocytes Abs Auto0.000.00-0.03 10 3/uLPerforming Lab:see noteML - [facility] LBPROF 14(COMP METB) Reviewed date:10/30/2024 01:16:30 PM Interpretation: Performing Lab: Notes/Report: [facility] ,Wlhbah054224-166 mmol/LPotassium3.83.5-5.1 mmol/SGitworax66896-823 mmol/LCarbon Mnoprbv39.821.0-32.0 mmol/LAnion Gap13.9Huzdkrg4130-374 mg/dLBlood Urea Nitrogen4.07.0-18.0 mg/dLCreatinine0.650.55-1.02 mg/dLEstimated GFR ( [place]>60>=60 mL/min/1.73m 2Estimated GFR (Non- Caroline>60>=60 mL/min/1.73m 2BUN Creatinine Ratio6.8Oecmviu6.18.5-10.1 mg/dLBilirubin Total0.30.2-1.0 mg/dL Aspartate Amino Jgulycarrtq1399-44 U/LAlanine Iytftndibpagoldt5526-08 U/L Alkaline Vtlsdrxmgck6632-813 U/LTotal Protein6.36.4-8.2 g/dLAlbumin Level3.33.4- 5.0 g/dLGlobulin3.0Albumin Globulin Ratio1.1Performing Lab:see note - [facility] LBTroponin I High Sensitivity Reviewed date:10/30/2024 01:16:30 PM Interpretation: Performing Lab: Notes/Report: [facility] ,Troponin I High Hrzynuzfbte37.84.0-51.3 pg/mL CUT-OFF POINTS HAVE BEEN ESTABLISHED BASED ON THE FOURTH UNIVERSAL DEFINITION OF MYOCARDIAL INFARCTION. THE UPPER REFERENCE LIMIT (URL) OF TROPONIN, DEFINED THE 99TH PERCENTILE OF cTnI DISTRIBUTION IN A REFERENCE POPULATION, HAS BEEN CONFIRMED THE DECISION THRESHOLD FOR [place] DIAGNOSIS. 99TH PERCENTILE = 51.4 PG/ML NOTE: HIGH-SENSITIVITY TROPONIN ASSAY IS NOT INTENDED TO BE USED IN ISOLATION BUT SHOULD BE INTERPRETED IN CONJUNCTION WITH OTHER DIAGNOSTIC AND CLINICAL INFORMATION. Performing Lab:see note - [facility] LBHCG Qualitative* Reviewed date:10/30/2024 01:16:30 PM Interpretation: Performing Lab: Notes/Report: [facility] ,HCG QualitativeNEGATIVENEGATIVEPerforming Lab:see smith - [facility] LBECG 12 lead Reviewed date:10/30/2024 05:59:55 PM Interpretation: Performing Lab: Notes/Report: Source [place] [address] [place] [address] Electrocardiograph Report Signed Patient: JUAN GARCIA MR#: [id number] : 1990 Acct:[id number] Age/Sex: 34 / F ADM Date: 10/30/24 Loc: ER Attending Dr: Ordering Physician: Barbara Willoughby Date of Service: 10/30/24 Procedure(s): ECG 12 lead Accession Number(s): [id number] cc: [facility] Test Date: 2024-10-30 Pat Name: JUAN GARCIA Department: Room: - Gender: Female 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 Signed By: 10/30/24 1654 DD/ 1015 TD/TT: Dolphin Trainer:XR chest 1V Reviewed date:10/30/2024 01:16:30 PM Interpretation: Performing Lab: Notes/Report: Source Facility: [place] [address] XRay Report Signed Patient: JUAN GARCIA MR#: [id number] : 1990 Acct:[id number] Age/Sex: 34 / F ADM Date: Loc: ER Attending Dr: Ordering Physician: Barbara Willoughby Date of Service: 10/30/24 Procedure(s): XR chest 1V Accession Number(s): [id number] cc: Britt Alas M.D.; Barbara Willoughby [place] [address] Patient Name: JUAN GARCIA MRN: [id number] date: 1990 Sex: F Assigned Patient Location: ED.MAIN Current Patient Location: ED.MAIN Accession/Order Number: [id number] Exam Date: 10/30/2024 10:20 Report Date: 10/30/2024 [...] Hutchinson M.D. 10/30/2024 10:45 AM Dictation Location: [place] [address] Electronically authenticated by: [id number] Y Date: 10/30/2024 10:45 Dictated By: Maricruz Hutchinson M.D. 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 Signed By: 10/30/24 1658 DD/ 1256 TD/TT: Dolphin Trainer:Troponin I High Sensitivity Reviewed date:10/30/2024 04:08:35 PM Interpretation: Performing Lab: Notes/Report: [facility] ,Troponin I High Rpgodcxrcsx504.34.0-51.3 pg/mL PERCENTILE OF cTnI DISTRIBUTION IN A REFERENCE POPULATION, HAS BEEN CONFIRMED THE DECISION THRESHOLD FOR IA DIAGNOSIS. 99TH PERCENTILE = 51.4 PG/ML NOTE: HIGH-SENSITIVITY TROPONIN ASSAY IS NOT INTENDED TO BE USED IN ISOLATION BUT SHOULD BE INTERPRETED IN CONJUNCTION WITH OTHER DIAGNOSTIC AND CLINICAL INFORMATION. RESULTS CALLED TO CHAVA HALL RN at 1506 CUT-OFF POINTS HAVE BEEN ESTABLISHED BASED ON THE FOURTH UNIVERSAL DEFINITION OF MYOCARDIAL INFARCTION. THE UPPER REFERENCE LIMIT (URL) OF TROPONIN, DEFINED THE 99TH Performing Lab:see noteML - [facility] LBECG 12 lead Reviewed date:10/30/2024 05:59:55 PM Interpretation: Performing Lab: Notes/Report: Source Facility: [facility] [place] [address] [place] [address] Electrocardiograph Report Signed Patient: JUAN GARCIA MR#: [id number] : 1990 Acct:[id number] Age/Sex: 34 / F ADM Date: 10/30/24 Loc: ER Attending Dr: Ordering Physician: Barbara Willoughby Date of Service: 10/30/24 Procedure(s): ECG 12 lead Accession Number(s): [id number] cc: [facility] Test Date: 2024-10-30 Pat Name: JUAN GARCIA Department: Room: - Gender: Female 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 Signed By: 10/30/24 1701 DD/ 1531 TD/TT: Dolphin Trainer:CBC AUTO DIFF Reviewed date:11/14/2024 04:56:23 PM Interpretation: Performing Lab: Notes/Report: [facility] ,White Blood Count3.64.0-11.0 10 3/uLRed Blood Count3.044.20-5.40 10 6/uL Hemoglobin9.212.0-16.0 g/jMAumruyueov67.836.0-48.0 %Mean Corpuscular Wfmvtg60.4 81.0-99.0 fLMean Corpuscular Llpkjoufyg23.326.7-34.0 pgMean Corpuscular HGB Conc 33.129.9-35.2 g/dLRed Cell Distribution Width14.611.0-15.0 %Platelet Ljigq115 150-450 10 3/uLMean Platelet Yqhpzu18.69.5-13.5 fLNeutrophils Percent Auto36.0 43.0-75.0 %Lymphocytes Percent Auto47.420.5-60.0 %Monocytes Percent Auto10.01.7- 12.0 %Eosinophils Percent Auto5.80.9-7.0 %Basophils Percent Auto0.80.2-2.0 % Immature Granulocytes Pct Auto0.00.0-0.5 %Neutrophils Absolute Auto1.31.4-6.5 10 3/uLLymphocytes Absolute Auto1.71.2-3.8 10 3/uLMonocytes Absolute Auto0.40.3- 0.8 10 3/uLEosinophils Absolute Auto0.20.0-0.7 10 3/uLBasophils Absolute Auto0.0 0.0-0.1 10 3/uLImmature Granulocytes Abs Auto0.000.00-0.03 10 3/uLPerforming Lab:see noteML - [facility] LBLIVER PROFILE Reviewed date:11/15/2024 01:03:51 PM Interpretation: Performing Lab: Notes/Report: [facility] ,Bilirubin Total0.40.2-1.0 mg/dLBilirubin Direct0.10.0-0.2 mg/dLAspartate Amino Myskjshiext2247-03 U/LAlanine Erahwgsmchhwxuog1296-44 U/LAlkaline Gpoqisswsja09 46-116 U/LTotal Protein6.26.4-8.2 g/dLAlbumin Level2.93.4-5.0 g/dLGlobulin3.3 Albumin Globulin Ratio0.9Performing Lab:see noteML - [facility] LB PROF CHEM 8 (BAS METB) Reviewed date:11/14/2024 04:56:23 PM Interpretation: Performing Lab: Notes/Report: [facility] ,Ojzqnn140126-846 mmol/LPotassium3.83.5-5.1 mmol/RJycjpgtz66126-054 mmol/LCarbon Voerxff19.321.0-32.0 mmol/LAnion Gap14.9Oehapqo4013-889 mg/dLBlood Urea Qtxdlijq74.07.0-18.0 mg/dLCreatinine0.730.55-1.02 mg/dLEstimated GFR ( [place]>60>=60 mL/min/1.73m 2Estimated GFR (Non- Caroline>60>=60 mL/min/1.73m 2BUN Creatinine Ratio16.6Stpljsx2.98.5-10.1 mg/dLPerforming Lab:see noteML - [facility] LBTroponin I High Sensitivity Reviewed date:11/14/2024 04:56:23 PM Interpretation: Performing Lab: Notes/Report: [facility] ,Troponin I High Sensitivity5.64.0-51.3 pg/mL CUT-OFF POINTS HAVE BEEN ESTABLISHED BASED ON THE FOURTH UNIVERSAL DEFINITION OF MYOCARDIAL INFARCTION. THE UPPER REFERENCE LIMIT (URL) OF TROPONIN, DEFINED THE 99TH PERCENTILE OF cTnI DISTRIBUTION IN A REFERENCE POPULATION, HAS BEEN CONFIRMED THE DECISION THRESHOLD FOR IA DIAGNOSIS. 99TH PERCENTILE = 51.4 PG/ML NOTE: HIGH-SENSITIVITY TROPONIN ASSAY IS NOT INTENDED TO BE USED IN ISOLATION BUT SHOULD BE INTERPRETED IN CONJUNCTION WITH OTHER DIAGNOSTIC AND CLINICAL INFORMATION. Performing Lab:see noteML - [facility] LBECG 12 lead Reviewed date:11/15/2024 01:03:51 PM Interpretation: Performing Lab: Notes/Report: Source Facility: [facility] [place] [address] [place] [address] Electrocardiograph Report Signed Patient: JUAN GARCIA MR#: [id number] : 1990 Acct:[id number] Age/Sex: 34 / F ADM Date: 11/14/24 Loc: ER Attending Dr: Ordering Physician: Otilio Klein Date of Service: 11/14/24 Procedure(s): ECG 12 lead Accession Number(s): [id number] cc: [facility] Test Date: 2024-11-14 Pat Name: JUAN GARCIA Department: Room: - Gender: Female Veneer 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 Measurements Intervals [place] Rate: 69 P: 76 KS: 154 QRS: 80 QRSD: 90 T: 84 QT: 402 QTc: 420 Interpretive Statements 1100 Sinus rhythm 9110 normal ECG Compared to ECG 10/30/2024 15:31:37 No significant changes Electronically Signed On 11-14-2024 20:01:07 EDT by JAMES HODGES M.D. Dictated By: JAMES HODGES Signed By: 11/14/24200011/14/242000 DD/ 172 TD/TT: Dolphin Trainer:CBC AUTO DIFF Reviewed date:11/19/2024 02:14:57 PM Interpretation: Performing Lab: Notes/Report: [facility] ,White Blood Count3.44.0-11.0 10 3/uLRed Blood Count3.334.20-5.40 10 6/uL Hemoglobin9.812.0-16.0 g/qLUwuxxsohtk92.636.0-48.0 %Mean Corpuscular Iyentg31.9 81.0-99.0 fLMean Corpuscular Ntupsrjvxt80.426.7-34.0 pgMean Corpuscular HGB Conc 33.129.9-35.2 g/dLRed Cell Distribution Width14.011.0-15.0 %Platelet Ezuxs504 150-450 10 3/uLMean Platelet Zrfgnm32.29.5-13.5 fLNeutrophils Percent Auto43.8 43.0-75.0 %Lymphocytes Percent Auto42.120.5-60.0 %Monocytes Percent Auto8.81.7- 12.0 %Eosinophils Percent Auto3.80.9-7.0 %Basophils Percent Auto1.20.2-2.0 % Immature Granulocytes Pct Auto0.30.0-0.5 %Neutrophils Absolute Auto1.51.4-6.5 10 3/uLLymphocytes Absolute Auto1.41.2-3.8 10 3/uLMonocytes Absolute Auto0.30.3- 0.8 10 3/uLEosinophils Absolute Auto0.10.0-0.7 10 3/uLBasophils Absolute Auto0.0 0.0-0.1 10 3/uLImmature Granulocytes Abs Auto0.010.00-0.03 10 3/uLPerforming Lab:see noteML - [facility] LBPROF 14(COMP METB) Reviewed date:11/19/2024 02:14:57 PM Interpretation: Performing Lab: Notes/Report: [facility] ,Shjovd021748-710 mmol/LPotassium3.73.5-5.1 mmol/DZsghntpx93436-609 mmol/LCarbon Nrrczwi58.021.0-32.0 mmol/LAnion Gap12.0Vtgspnt6193-359 mg/dLBlood Urea Voqpszcs82.07.0-18.0 mg/dLCreatinine0.700.55-1.02 mg/dLEstimated GFR ( [place]>60>=60 mL/min/1.73m 2Estimated GFR (Non- Caroline>60>=60 mL/min/1.73m 2BUN Creatinine Ratio15.4Xgedecr0.18.5-10.1 mg/dLBilirubin Total0.40.2-1.0 mg/dL Aspartate Amino Qhdbubtqfbc4294-66 U/LAlanine Ekjjpfiemfdnigid6575-13 U/L Alkaline Eslmdowjfiw1606-467 U/LTotal Protein6.46.4-8.2 g/dLAlbumin Level3.23.4- 5.0 g/dLGlobulin3.2Albumin Globulin Ratio1.0Performing Lab:see [facility] LBTroponin I High Sensitivity Reviewed date:11/19/2024 02:14:57 PM Interpretation: Performing Lab: Notes/Report: [facility] ,Troponin I High Sensitivity4.44.0-51.3 pg/mL CUT-OFF POINTS HAVE BEEN ESTABLISHED BASED ON THE FOURTH UNIVERSAL DEFINITION OF MYOCARDIAL INFARCTION. THE UPPER REFERENCE LIMIT (URL) OF TROPONIN, DEFINED THE 99TH PERCENTILE OF cTnI DISTRIBUTION IN A REFERENCE POPULATION, HAS BEEN CONFIRMED THE DECISION THRESHOLD FOR IA DIAGNOSIS. 99TH PERCENTILE = 51.4 PG/ML NOTE: HIGH-SENSITIVITY TROPONIN ASSAY IS NOT INTENDED TO BE USED IN ISOLATION BUT SHOULD BE INTERPRETED IN CONJUNCTION WITH OTHER DIAGNOSTIC AND CLINICAL INFORMATION. Performing Lab:see [facility] LBHCG Qualitative* Reviewed date:11/19/2024 02:14:57 PM Interpretation: Performing Lab: Notes/Report: [facility] ,HCG QualitativeNEGATIVENEGATIVEPerforming Lab:see [facility] LBECG 12 lead Reviewed date:11/20/2024 12:44:41 PM Interpretation: Performing Lab: Notes/Report: Source Facility: [facility]-[address] [place] [address] [place] [address] Electrocardiograph Report Signed Patient: JUAN GARCIA MR#: [id number] : 1990 Acct:[id number] Age/Sex: 34 / F ADM Date: 11/19/24 Loc: [place] 214-[address]: TRACIE ZIMMER Ordering Physician: TRACIE ZIMMER of Service: 11/19/24 Procedure(s): ECG 12 lead Accession Number(s): [id number] cc: [facility] Test Date: 2024-11-19 Pat Name: JUAN GARCIA Department: Room: 214 Gender: Female Veneer Cutter: : 1990 Requested By: [id number] Order Number: [id number] Reading MD: JAMES HODGES M.D. Measurements Intervals [place] Rate: 60 P: 50 KS: 153 QRS: 41 QRSD: 89 T: 51 QT: 427 QTc: 428 Interpretive Statements SINUS RHYTHM Normal ECG Compared to ECG 11/14/2024 17:23:57 No significant changes Electronically Signed On 11-19-2024 19:26:01 EDT by JAMES HODGES M.D. Dictated By: JAMES HODGES Signed By: 11/19/24192511/19/241925 DD/ 52 TD/TT: Dolphin Trainer:XR chest 1V Reviewed date:11/19/2024 02:14:57 PM Interpretation: Performing Lab: Notes/Report: Source Facility: [place] [address] XRay Report Signed Patient: JUAN GARCIA MR#: [id number] : 1990 Acct:[id number] Age/Sex: 34 / F ADM Date: 11/19/24 Loc: ER Attending Dr: Ordering Physician: Barbara Willoughby Date of Service: 11/19/24 Procedure(s): XR chest 1V Accession Number(s): [id number] cc: Britt Alas M.D.; Barbara Willoughby [place] [id number] Patient Name: JUAN GARCIA MRN: [id number]:[id number] date: 1990 Sex: F Assigned Patient Location: ED.MAIN Current Patient Location: ED.MAIN Accession/Order Number: [id number] Exam Date: 11/19/2024 09:40 Report Date: 11/19/2024 09:54 At the request of: BARBARA WILLOUGHBY MD Procedure: XR chest 1V Single view chest: CLINICAL HISTORY: cp COMPARISON: None FINDINGS: The heart is normal in size. The lungs are clear. The pulmonary vasculature is normal. Mediastinum and hilar regions are unremarkable. No pleural effusions are seen. Visualized bones are intact. Presumed shunt tip within the SVC. XR/XR chest 1V IMPRESSION: NO ACUTE PROCESS. Impression dictated by: Cornel Medel Jr., D.O. 11/19/2024 9:54 AM Dictation Location: [employer] Electronically authenticated by: [id number] Y Date: 11/19/2024 09:54 Dictated By: Cornel Medel M.D. Signed By: 11/19/24956 DD/ 3 TD/TT: Dolphin Trainer:Troponin I High Sensitivity Reviewed date:11/19/2024 02:14:57 PM Interpretation: Performing Lab: Notes/Report: [facility] ,Troponin I High Sensitivity4.84.0-51.3 pg/mL CUT-OFF POINTS HAVE BEEN ESTABLISHED BASED ON THE FOURTH UNIVERSAL DEFINITION OF MYOCARDIAL INFARCTION. THE UPPER REFERENCE LIMIT (URL) OF TROPONIN, DEFINED THE 99TH PERCENTILE OF cTnI DISTRIBUTION IN A REFERENCE POPULATION, HAS BEEN CONFIRMED THE DECISION THRESHOLD FOR IA DIAGNOSIS. 99TH PERCENTILE = 51.4 PG/ML NOTE: HIGH-SENSITIVITY TROPONIN ASSAY IS NOT INTENDED TO BE USED IN ISOLATION BUT SHOULD BE INTERPRETED IN CONJUNCTION WITH OTHER DIAGNOSTIC AND CLINICAL INFORMATION. Performing Lab:see noteML - [facility] LBTroponin I High Sensitivity Reviewed date:11/19/2024 05:07:43 PM Interpretation: Performing Lab: Notes/Report: [facility] ,Troponin I High Sensitivity<4.04.0-51.3 pg/mL CUT-OFF POINTS HAVE BEEN ESTABLISHED BASED ON THE FOURTH UNIVERSAL DEFINITION OF MYOCARDIAL INFARCTION. THE UPPER REFERENCE LIMIT (URL) OF TROPONIN, DEFINED THE 99TH PERCENTILE OF cTnI DISTRIBUTION IN A REFERENCE POPULATION, HAS BEEN CONFIRMED THE DECISION THRESHOLD FOR IA DIAGNOSIS. 99TH PERCENTILE = 51.4 PG/ML NOTE: HIGH-SENSITIVITY TROPONIN ASSAY IS NOT INTENDED TO BE USED IN ISOLATION BUT SHOULD BE INTERPRETED IN CONJUNCTION WITH OTHER DIAGNOSTIC AND CLINICAL INFORMATION. Performing Lab:see noteML - [facility] LBCBC AUTO DIFF Reviewed date:11/20/2024 12:44:41 PM Interpretation: Performing Lab: Notes/Report: [facility] ,White Blood Count2.94.0-11.0 10 3/uLRed Blood Count3.174.20-5.40 10 6/uL Hemoglobin9.312.0-16.0 g/sDTecnsubuyo33.436.0-48.0 %Mean Corpuscular Hwncok44.6 81.0-99.0 fLMean Corpuscular Fddtqmmvnr34.326.7-34.0 pgMean Corpuscular HGB Conc 32.729.9-35.2 g/dLRed Cell Distribution Width14.111.0-15.0 %Platelet Rpwpu982 150-450 10 3/uLMean Platelet Fwcygh20.39.5-13.5 fLPerforming Lab:see noteML - [facility] LBPROF CHEM 8 (BAS METB) Reviewed date:11/20/2024 12:44:41 PM Interpretation: Performing Lab: Notes/Report: [facility] ,Frfxoi252735-047 mmol/LPotassium4.13.5-5.1 mmol/PBfrrcvey75021-269 mmol/LCarbon Virkppz55.821.0-32.0 mmol/LAnion Gap12.7Slvocqu0643-481 mg/dLBlood Urea Wiowgcil34.07.0-18.0 mg/dLCreatinine0.750.55-1.02 mg/dLEstimated GFR ( Shelby>60>=60 mL/min/1.73m 2Estimated GFR (Non- Caroline>60>=60 mL/min/1.73m 2BUN Creatinine Ratio13.5Dxxltno8.38.5-10.1 mg/dLPerforming Lab:see noteML - [facility] LBManual Differential Reviewed date:11/20/2024 12:44:41 PM Interpretation: Performing Lab: Notes/Report: [facility] ,Segmented Neutrophils % Jcwfuq04.043.0-75.0Lymphocytes Percent Ardsqc00.020.5- 60.0 %Monocytes Percent Sarudj44.01.7-12.0 %Eosinophils Percent Pwxhdo64.00.9- 7.0 %Basophils Percent Manual2.00.2-2.0 %Atypical Lymphocytes % Manual3.0 Segmented Neut Absolute Manual0.951.4-6.5 10 3/uLLymphocytes Absolute Manual1.16 1.20-3.80 10 3/uLMonocytes Absolute Manual0.310.30-0.80 10 3/uLEosinophils Absolute Manual0.340.00-0.70 10 3/uLBasophils Abs Manual0.050.00-0.10 10 3/uL Atypical Lymphocytes Abs Man0.32Omhnartzbgobt1+Poikilocytosis1+Anisocytosis2+ Performing Lab:see noteML - [facility] LBTroponin I High Sensitivity Reviewed date:11/20/2024 12:44:41 PM Interpretation: Performing Lab: Notes/Report: [facility] ,Troponin I High Sensitivity5.24.0-51.3 pg/mL CUT-OFF POINTS HAVE BEEN ESTABLISHED BASED ON THE FOURTH UNIVERSAL DEFINITION OF MYOCARDIAL INFARCTION. THE UPPER REFERENCE LIMIT (URL) OF TROPONIN, DEFINED THE 99TH PERCENTILE OF cTnI DISTRIBUTION IN A REFERENCE POPULATION, HAS BEEN CONFIRMED THE DECISION THRESHOLD FOR IA DIAGNOSIS. 99TH PERCENTILE = 51.4 PG/ML NOTE: HIGH-SENSITIVITY TROPONIN ASSAY IS NOT INTENDED TO BE USED IN ISOLATION BUT SHOULD BE INTERPRETED IN CONJUNCTION WITH OTHER DIAGNOSTIC AND CLINICAL INFORMATION. Performing Lab:see noteML - [facility] LBECG 12 lead Reviewed date:11/20/2024 06:47:06 PM Interpretation: Performing Lab: Notes/Report: Source Facility: [place] [address] Electrocardiograph Report Signed Patient: JUAN GARCIA MR#: [id number] : 1990 Acct:[id number] Age/Sex: 34 / F ADM Date: 11/19/24 Loc: [place] 214-[address]: TRACIE ZIMMER Ordering Physician: TRACIE ZIMMER Date of Service: 11/20/24 Procedure(s): ECG 12 lead Accession Number(s): [id number] cc: [facility] Test Date: 2024-11-20 Pat Name: JUAN GARCIA Department: Room: [facility] Gender: Female Veneer Cutter: : 1990 Requested By: [id number] Order Number: [id number] Reading MD: JAMES HODGES M.D. Measurements Intervals [place] Rate: 66 P: 51 KS: 157 QRS: 46 QRSD: 89 T: 55 QT: 434 QTc: 457 Interpretive Statements SINUS RHYTHM WITH OCCASIONAL VENTRICULAR PREMATURE COMPLEXES Otherwise normal ECG Compared to ECG 11/19/2024 15:53:20 Ventricular premature complex(es) now present Electronically Signed On 11-20-2024 18:25:25 EDT by JAMES HODGES M.D. Dictated By: JAMES HODGES Signed By: 11/20/24 1825 DD/ 5 TD/TT: Dolphin Trainer:ECG 12 lead Reviewed date:11/21/2024 04:20:51 PM Interpretation: Performing Lab: Notes/Report: Source Facility: [place] [address] Electrocardiograph Report Signed Patient: JUAN GARCIA MR#: [id number] : 1990 Acct:[id number] Age/Sex: 34 / F ADM Date: 11/19/24 Loc: MS 214-[address]: TRACIE ZIMMER Ordering Physician: Kal Wilson M.D. Date of Service: 11/21/24 Procedure(s): ECG 12 lead Accession Number(s): [id number] cc: [facility] Test Date: 2024-11-21 Pat Name: JUAN GARCIA Department: Room: [facility] Gender: Female Veneer Cutter: : 1990 Requested By: [id number] Order Number: [id number] Reading MD: ERLIN GELLER Measurements Intervals [place] Rate: 77 P: 57 KS: 150 QRS: 18 QRSD: 90 T: 38 QT: 396 QTc: 449 Interpretive Statements SINUS RHYTHM Compared to ECG 11/20/2024 05:26:15 Ventricular premature complex(es) no longer present Electronically Signed On 11-21-2024 12:57:32 EDT by ERLIN GELLER Dictated By: Erlin Geller M.D. Signed By: 11/21/24 1257 DD/ 1100 TD/TT: Dolphin Trainer:CBC AUTO DIFF Reviewed date:11/30/2024 07:01:13 PM Interpretation: Performing Lab: Notes/Report: [facility] ,White Blood Count3.84.0-11.0 10 3/uLRed Blood Count3.514.20-5.40 10 6/uL Tsdovhgcre11.312.0-16.0 g/zZVpnajdhkvu91.336.0-48.0 %Mean Corpuscular Vqptxn14.2 81.0-99.0 fLMean Corpuscular Iwtkrrpwwz89.326.7-34.0 pgMean Corpuscular HGB Conc 32.929.9-35.2 g/dLRed Cell Distribution Width13.811.0-15.0 %Platelet Npsmy932 150-450 10 3/uLMean Platelet Lpnvcu24.89.5-13.5 fLNeutrophils Percent Auto53.1 43.0-75.0 %Lymphocytes Percent Auto34.220.5-60.0 %Monocytes Percent Auto7.41.7- 12.0 %Eosinophils Percent Auto4.20.9-7.0 %Basophils Percent Auto1.10.2-2.0 % Immature Granulocytes Pct Auto0.00.0-0.5 %Neutrophils Absolute Auto2.01.4-6.5 10 3/uLLymphocytes Absolute Auto1.31.2-3.8 10 3/uLMonocytes Absolute Auto0.30.3- 0.8 10 3/uLEosinophils Absolute Auto0.20.0-0.7 10 3/uLBasophils Absolute Auto0.0 0.0-0.1 10 3/uLImmature Granulocytes Abs Auto0.000.00-0.03 10 3/uLPerforming Lab:see noteML - [facility] LBPROF 14(COMP METB) Reviewed date:11/30/2024 07:01:13 PM Interpretation: Performing Lab: Notes/Report: [facility] ,Ldiswi639330-409 mmol/LPotassium3.83.5-5.1 mmol/UWfqlatmy78802-265 mmol/LCarbon Ffbwssn29.721.0-32.0 mmol/LAnion Gap15.0Veukzlx7301-747 mg/dLBlood Urea Nitrogen9.07.0-18.0 mg/dLCreatinine0.660.55-1.02 mg/dLEstimated GFR ( Shelby>60>=60 mL/min/1.73m 2Estimated GFR (Non- Caroline>60>=60 mL/min/1.73m 2BUN Creatinine Ratio13.3Xkarwqt9.28.5-10.1 mg/dLBilirubin Total0.30.2-1.0 mg/dL Aspartate Amino Xynybkclnuh0462-06 U/LAlanine Uxjrzfrfyuhwmuvu5759-01 U/L Alkaline Ljhojyquxyh3897-814 U/LTotal Protein6.56.4-8.2 g/dLAlbumin Level3.23.4- 5.0 g/dLGlobulin3.3Albumin Globulin Ratio1.0Performing Lab:see noteML - [facility] LBUA (CLEAN or CATCH) MANUAL MACHINIST or MICRO IF IND. Reviewed date:11/30/2024 07:01:13 PM Interpretation: Performing Lab: Notes/Report: CATH SPECIMEN [facility] ,Color UrineYELLOWYELLOWClarity UrineCLEARCLEARSpecific [place] Urine>=1.030 1.005-1.025pH Urine5.55.0-9.0Protein UrineNEGATIVENEG/TRACE mg/dLGlucose Urine UANEGATIVENEGATIVE mg/dLBilirubin UrineNEGATIVENEGATIVEKetones UrineNEGATIVE NEGATIVE mg/dLBlood UrineMODERATENEGATIVENitrite UrineNEGATIVENEGATIVE Urobilinogen Urine0.20.2-1.0 EU/dLLeukocyte Esterase UrineNEGATIVENEGATIVEUrine Microscopic IndicatedYESPerforming Lab:see noteML - [facility] LB URINE MICROSCOPIC ONLY Reviewed date:11/30/2024 07:01:13 PM Interpretation: Performing Lab: Notes/Report: CATH SPECIMEN [facility] ,WBC Urine0-2NONE SEEN #/HPFRBC Xufws96-152-4 #/HPFBacteria UrineNONE SEENNONE SEEN #/HPFMucus UrineTRACENONE SEENSquamous Epithelial Cell UrineFEWNONE/RARE #/LPFCrystals Seen?SeenNone Seen #/HPFCalcium Oxalate Crystals UrineFEWCast Seen?NONE SEENNONE SEEN #/LPFUrine Culture IndicatedNOPerforming Lab:see note - [facility] LBHCG Qualitative* Reviewed date:11/30/2024 07:01:13 PM Interpretation: Performing Lab: Notes/Report: [facility] ,HCG QualitativeNEGATIVENEGATIVEPerforming Lab:see note - [facility] LBCT abdomen pelvis wo con Reviewed date:11/30/2024 07:01:13 PM Interpretation: Performing Lab: Notes/Report: Source Facility: [place] [address] CT Scan Report Signed Patient: JUAN GARCIA MR#: [id number] : 1990 Acct:[id number] Age/Sex: 34 / F ADM Date: 11/30/24 Loc: ER Attending Dr: Ordering Physician: Barbara Willoughby Date of Service: 11/30/24 Procedure(s): CT abdomen pelvis wo con Accession Number(s): [id number] cc: Britt Alas M.D. [place] [address] Patient Name: JUAN GARCIA MRN: [id number]:[id number] date: 1990 Sex: F Assigned Patient Location: ER Current Patient Location: ER Accession/Order Number: [id number] Exam Date: 11/30/2024 11:00 Report Date: 11/30/2024 11:55 At the request of: BARBARA WILLOUGHBY MD Procedure: CT abdomen pelvis wo con CT ABDOMEN AND PELVIS WITHOUT INTRAVENOUS CONTRAST: CLINICAL HISTORY: flank pain with urinary retention left-sided flank pain COMPARISON: 11/14/2024 CT angiogram TECHNIQUE: Spiral images were obtained through the abdomen and pelvis without intravenous contrast. This CT exam was performed using one or more following dose reduction techniques: Automated exposure control, adjustment of the mA and/or kV according to patient size, or use of iterative reconstruction technique. FINDINGS: Lung Bases: [No focal opacity] Organs:Multifocal hypodensities suggestive cysts some which are subcentimeter in size and small for adequate interpretation. Otherwise gallbladder absent. Punctate right lower pole calculus nonobstructed. No hydronephrosis. No left-sided nephrolithiasis. Otherwise spleen, adrenals and pancreas unremarkable.[ GI: Gastric bypass surgery.[Appendectomy. No pericecal moderate changes. No bowel obstruction. Rbha-so-rettmhrl retained stool. Pelvis:[Bladder collapsed with Costello catheter in situ. Uterus absent. No adnexal mass.] Peritoneum/Retroperitoneum:No free air or free fluid. No bulky adenopathy.[Aorta is nonaneurysmal. Abd wall/Bones: [No suspicious osseous lesion. CT/CT abdomen pelvis wo con IMPRESSION: Punctate right-sided nephrolithiasis noted. No hydronephrosis or obstructive uropathy identified. Otherwise negative for acute inflammatory process or bowel obstruction. Impression dictated by: Tio Lundberg M.D. 11/30/2024 11:55 AM Dictation Location: [place] [address] Electronically authenticated by: [id number] Y Date: 11/30/2024 11:55 Dictated By: Tio Lundberg M.D. Signed By: 11/30/24 1158 DD/ 1155 TD/TT: Dolphin Trainer:Blood Culture 1 Reviewed date:09/24/2024 07:41:50 PM Interpretation: Performing Lab: Notes/Report: [facility] ,Blood Culture 1See Below For Report NG5D NO GROWTH AT 5 DAYS.^NO GROWTH AT 5 DAYS. Blood Culture 1 Performing Lab:see noteML - [facility] LBLIPASE Reviewed date:06/21/2024 12:59:38 PM Interpretation: Performing Lab: Notes/Report: [facility] ,Tdeorv82.016.0-77.0 U/LPerforming Lab:see note - [facility] LBCBC AUTO DIFF Reviewed date:06/21/2024 12:59:38 PM Interpretation: Performing Lab: Notes/Report: [facility] ,White Blood Count5.64.0-11.0 10 3/uLRed Blood Count3.724.20-5.40 10 6/uL Bhdvbhhpvq96.312.0-16.0 g/gOWtkdelyegx53.436.0-48.0 %Mean Corpuscular Ftybrk93.2 81.0-99.0 fLMean Corpuscular Okczkveibz99.126.7-34.0 pgMean Corpuscular HGB Conc 34.729.9-35.2 g/dLRed Cell Distribution Width12.211.0-15.0 %Platelet Ivsjn976 150-450 10 3/uLMean Platelet Volume9.49.5-13.5 fLNeutrophils Percent Auto83.0 43.0-75.0 %Lymphocytes Percent Auto13.720.5-60.0 %Monocytes Percent Auto2.71.7- 12.0 %Eosinophils Percent Auto0.00.9-7.0 %Basophils Percent Auto0.20.2-2.0 % Immature Granulocytes Pct Auto0.40.0-0.5 %Neutrophils Absolute Auto4.71.4-6.5 10 3/uLLymphocytes Absolute Auto0.81.2-3.8 10 3/uLMonocytes Absolute Auto0.20.3- 0.8 10 3/uLEosinophils Absolute Auto0.00.0-0.7 10 3/uLBasophils Absolute Auto0.0 0.0-0.1 10 3/uLImmature Granulocytes Abs Auto0.020.00-0.03 10 3/uLPerforming Lab:see noteML - [facility] LBAMYLASE Reviewed date:06/21/2024 12:59:38 PM Interpretation: Performing Lab: Notes/Report: [facility] ,Yddxuyh1921-879 U/LPerforming Lab:see noteML - [facility] LBPROF CHEM 8 (BAS METB) Reviewed date:03/30/2024 07:56:16 PM Interpretation: Performing Lab: Notes/Report: [facility] ,Outdxi267093-797 mmol/LPotassium4.03.5-5.1 mmol/AQpoclpdq33618-972 mmol/LCarbon Fmyrwpw35.621.0-32.0 mmol/LAnion Gap16.7Pmpqbkr62611-615 mg/dLBlood Urea Nitrogen8.07.0-18.0 mg/dLCreatinine0.980.55-1.02 mg/dLEstimated GFR ( Shelby>60>=60 mL/min/1.73m 2Estimated GFR (Non- Caroline>60>=60 mL/min/1.73m 2BUN Creatinine Ratio8.1Qsbalnu4.38.5-10.1 mg/dLPerforming Lab:see note - [facility] LBMAGNESIUM Reviewed date:03/30/2024 07:56:16 PM Interpretation: Performing Lab: Notes/Report: [facility] ,Magnesium1.71.8-2.4 mg/dLPerforming Lab:see note - [facility] LB PROF 14(COMP METB) Reviewed date:03/29/2024 09:46:23 PM Interpretation: Performing Lab: Notes/Report: [facility] ,Tgobvi519200-121 mmol/LPotassium3.83.5-5.1 mmol/MHrzjixuf95280-348 mmol/LCarbon Pztzkac24.721.0-32.0 mmol/LAnion Gap13.1Hguzttg9756-486 mg/dLBlood Urea Gljgiizq77.07.0-18.0 mg/dLCreatinine0.940.55-1.02 mg/dLEstimated GFR ( Shelby>60>=60 mL/min/1.73m 2Estimated GFR (Non- Caroline>60>=60 mL/min/1.73m 2BUN Creatinine Ratio13.7Xisnrtk8.48.5-10.1 mg/dLBilirubin Total0.30.2-1.0 mg/dL Aspartate Amino Jyfpiwvyqmx2255-10 U/LAlanine Daixwjtvubziaylv1482-48 U/L Alkaline Kwgjdphdxrb6415-046 U/LTotal Protein6.46.4-8.2 g/dLAlbumin Level3.53.4- 5.0 g/dLGlobulin2.9Albumin Globulin Ratio1.2Performing Lab:see note - [facility] LBLIVER PROFILE Reviewed date:06/21/2024 12:59:38 PM Interpretation: Performing Lab: Notes/Report: [facility] ,Bilirubin Total0.60.2-1.0 mg/dLBilirubin Direct0.20.0-0.2 mg/dLAspartate Amino Aygcfrtctrs4321-68 U/LAlanine Acwmdopeqoowoabt9347-99 U/LAlkaline Hvyyotvwzef65 46-116 U/LTotal Protein6.76.4-8.2 g/dLAlbumin Level3.43.4-5.0 g/dLGlobulin3.3 Albumin Globulin Ratio1.0Performing Lab:see note - [facility] PROF CHEM 8 (BAS METB) Reviewed date:06/21/2024 12:59:38 PM Interpretation: Performing Lab: Notes/Report: [facility] ,Bqfliu350623-339 mmol/LPotassium3.53.5-5.1 mmol/CWicdsnbx51372-665 mmol/LCarbon Vftdnjl90.721.0-32.0 mmol/LAnion Gap14.6Wibxjcb37092-935 mg/dLBlood Urea Hzlzxlms19.07.0-18.0 mg/dLCreatinine0.740.55-1.02 mg/dLEstimated GFR ( Shelby>60>=60 mL/min/1.73m 2Estimated GFR (Non- Caroline>60>=60 mL/min/1.73m 2BUN Creatinine Ratio13.8Chqvxnt1.78.5-10.1 mg/dLPerforming Lab:[facility] LBHCG Qualitative* Reviewed date:06/21/2024 12:59:38 PM Interpretation: Performing Lab: Notes/Report: [facility] ,HCG QualitativeNEGATIVENEGATIVEPerforming Lab:see note - [facility] LBECG 12 lead Reviewed date:06/21/2024 08:02:33 PM Interpretation: Performing Lab: Notes/Report: Source Facility: [facility]-[address] [place] [address] [place] [address] Electrocardiograph Report Signed Patient: JUAN GARCIA MR#: [id number] : 1990 Acct:[id number] Age/Sex: 34 / F ADM Date: 06/21/24 Loc: ER Attending Dr: Ordering Physician: Leslie Terrazas M.D. Date of Service: 06/21/24 Procedure(s): ECG 12 lead Accession Number(s): [id number] cc: [facility] Test Date: 2024-06-21 Pat Name: JUAN GARCIA Department: Room: - Gender: Female Veneer Cutter: : 1990 Requested By: BRITT ALAS Order Number: [id number] Reading MD: JAMES HODGES M.D. Measurements Intervals [place] Rate: 80 P: 54 KS: 140 QRS: 47 QRSD: 80 T: 46 QT: 384 QTc: 420 Interpretive Statements 1100 Sinus rhythm 9110 normal ECG Compared to ECG 09/23/2023 18:36:37 No significant changes Electronically Signed On 06-21-2024 18:14:03 EDT by JAMES HODGES M.D. Dictated By: JAMES HODGES Signed By: 06/21/24 1814 DD/ 1124 TD/TT: Dolphin Trainer:CBC AUTO DIFF Reviewed date:07/22/2024 05:16:36 PM Interpretation: Performing Lab: Notes/Report: [facility] ,White Blood Count6.44.0-11.0 10 3/uLRed Blood Count3.634.20-5.40 10 6/uL Dwryfawyly90.812.0-16.0 g/bUPhziwbzfwb04.336.0-48.0 %Mean Corpuscular Aiscyj83.5 81.0-99.0 fLMean Corpuscular Hvvudrxbln53.526.7-34.0 pgMean Corpuscular HGB Conc 34.429.9-35.2 g/dLRed Cell Distribution Width12.711.0-15.0 %Platelet Plzso540 150-450 10 3/uLMean Platelet Vhjxlh93.59.5-13.5 fLNeutrophils Percent Auto72.6 43.0-75.0 %Lymphocytes Percent Auto21.720.5-60.0 %Monocytes Percent Auto5.01.7- 12.0 %Eosinophils Percent Auto0.20.9-7.0 %Basophils Percent Auto0.30.2-2.0 % Immature Granulocytes Pct Auto0.20.0-0.5 %Neutrophils Absolute Auto4.71.4-6.5 10 3/uLLymphocytes Absolute Auto1.41.2-3.8 10 3/uLMonocytes Absolute Auto0.30.3- 0.8 10 3/uLEosinophils Absolute Auto0.00.0-0.7 10 3/uLBasophils Absolute Auto0.0 0.0-0.1 10 3/uLImmature Granulocytes Abs Auto0.010.00-0.03 10 3/uLPerforming Lab:see noteML - [facility] LBPROF CHEM 8 (BAS METB) Reviewed date:07/22/2024 05:16:36 PM Interpretation: Performing Lab: Notes/Report: [facility] ,Tbonte041371-655 mmol/LPotassium3.93.5-5.1 mmol/YQqqolcql95039-677 mmol/LCarbon Xqzungq78.121.0-32.0 mmol/LAnion Gap15.6Uarvpxl0718-089 mg/dLBlood Urea Nitrogen8.07.0-18.0 mg/dLCreatinine0.680.55-1.02 mg/dLEstimated GFR ( Shelby>60>=60 mL/min/1.73m 2Estimated GFR (Non- Caroline>60>=60 mL/min/1.73m 2BUN Creatinine Ratio11.8Rmvsvlq3.78.5-10.1 mg/dLPerforming Lab:see noteML - [facility] LBXR acute abdomen series Reviewed date:08/02/2024 05:29:08 PM Interpretation: Performing Lab: Notes/Report: Source Facility: [facility]-[address] [place] [address] [place] [address] XRay Report Signed Patient: JUAN GARCIA MR#: [id number] : 1990 Acct:[id number] Age/Sex: 34 / F ADM Date: 08/02/24 Loc: ER Attending Dr: Ordering Physician: Massimo Damon Date of Service: 08/02/24 Procedure(s): XR acute abdomen series Accession Number(s): [id number] cc: Britt Alas M.D.; Massimo Damon [place] [id number] Patient Name: JUAN GARCIA MRN: TBH:[id number] date: 1990 Sex: F Assigned Patient Location: ER Current Patient Location: ER Accession/Order Number: [id number] Exam Date: 08/02/2024 09:12 Report Date: 08/02/2024 [...] Hutchinson M.D. 08/02/2024 9:19 AM Dictation Location: [place] [address] Electronically authenticated by: [id number] Y Date: 08/02/2024 09:19 Dictated By: Maricruz Hutchinson M.D. Signed By: 08/02/24921 DD/ 8 TD/TT: Dolphin Trainer:BLOOD CULTURE ID PANEL Reviewed date:08/16/2024 07:06:02 PM Interpretation: Performing Lab: Notes/Report: [facility] ,CTX-MNOT DETECTEDNOT DETECTEIMPNOT DETECTEDNOT DETECTEKPCNOT DETECTEDNOT DETECTEmcr-1NOT DETECTEDNOT DETECTEmecA/CNOT APPLICABLENOT DETECTEmecA/C and MREJ (MRSA)NOT APPLICABLENOT DETECTENDMNOT DETECTEDNOT [id number] DETECTEDNOT DETECTEvanA/BNOT APPLICABLENOT DETECTEVIMNOT DETECTEDNOT DETECTE SourceBLDEnterococcus faecalisNOT DETECTEDNOT DETECTEEnterococcus faeciumNOT DETECTEDNOT DETECTEListeria monocytogenesNOT DETECTEDNOT DETECTEStaphylococcus spp.NOT DETECTEDNOT DETECTEStaphylococcus aureusNOT DETECTEDNOT DETECTE Staphylococcus epidermidisNOT DETECTEDNOT DETECTEStaphylococcus lugdunensisNOT DETECTEDNOT DETECTEStreptococcus spp.NOT DETECTEDNOT DETECTEStreptococcus agalactiaeNOT DETECTEDNOT DETECTEStreptococcus pneumoniaeNOT DETECTEDNOT DETECTE Streptococcus pyogenesNOT DETECTEDNOT DETECTEA. calcoaceticus-baumannii CpxNOT DETECTEDNOT DETECTEBacteroides fragilisNOT DETECTEDNOT DETECTEEnterobacterales DETECTEDNOT DETECTE RESULTS CALLED TO SHAHZAD MARKEL RN @BY Andie Yepez at 2118 Enterobacter cloacae complexNOT DETECTEDNOT DETECTEEscherichia coliNOT DETECTED NOT DETECTEKlebsiella aerogenesNOT DETECTEDNOT DETECTEKlebsiella oxytocaNOT DETECTEDNOT DETECTEKlebsiella pneumoniae groupDETECTEDNOT DETECTE RESULTS CALLED TO SHAHZAD MARKEL RN @BY Andie Yepez at 2119 Proteus spp.NOT DETECTEDNOT DETECTESalmonella spp.NOT DETECTEDNOT DETECTE Serratia marcescensNOT DETECTEDNOT DETECTEHaemophilus influenzaeNOT DETECTEDNOT DETECTENeisseria meningitidisNOT DETECTEDNOT DETECTEPseudomonas aeruginosaNOT DETECTEDNOT DETECTEStenotrophomonas maltophiliaNOT DETECTEDNOT DETECTECandida albicansNOT DETECTEDNOT DETECTECandida aurisNOT DETECTEDNOT DETECTECandida glabrataNOT DETECTEDNOT DETECTECandida kruseiNOT DETECTEDNOT DETECTECandida parapsilosisNOT DETECTEDNOT DETECTECandida tropicalisNOT DETECTEDNOT DETECTE Cryptococcus neoformans/gattiiNOT DETECTEDNOT DETECTEPerforming Lab:see noteML - The [facility] LBCBC AUTO DIFF Reviewed date:08/15/2024 06:53:10 PM Interpretation: Performing Lab: Notes/Report: [facility] ,White Blood Count12.84.0-11.0 10 3/uLRed Blood Count3.444.20-5.40 10 6/uL Xgpegavmmx20.812.0-16.0 g/dEFwfbccmoek45.436.0-48.0 %Mean Corpuscular Zvyhww08.3 81.0-99.0 fLMean Corpuscular Sczslypdst39.426.7-34.0 pgMean Corpuscular HGB Conc 34.429.9-35.2 g/dLRed Cell Distribution Width13.711.0-15.0 %Platelet Hlfgx175 150-450 10 3/uLMean Platelet Jfjfkg85.09.5-13.5 fLNeutrophils Percent Auto93.4 43.0-75.0 %Lymphocytes Percent Auto4.720.5-60.0 %Monocytes Percent Auto1.21.7- 12.0 %Eosinophils Percent Auto0.00.9-7.0 %Basophils Percent Auto0.20.2-2.0 % Immature Granulocytes Pct Auto0.50.0-0.5 %Neutrophils Absolute Auto11.91.4-6.5 10 3/uLLymphocytes Absolute Auto0.61.2-3.8 10 3/uLMonocytes Absolute Auto0.20.3- 0.8 10 3/uLEosinophils Absolute Auto0.00.0-0.7 10 3/uLBasophils Absolute Auto0.0 0.0-0.1 10 3/uLImmature Granulocytes Abs Auto0.060.00-0.03 10 3/uLPerforming Lab:see noteML - [facility] LBLIPASE Reviewed date:08/15/2024 06:53:11 PM Interpretation: Performing Lab: Notes/Report: [facility] ,Uahsxo63.016.0-77.0 U/LPerforming Lab:see noteML - [facility] LBUA (CLEAN or CATCH) MANUAL MACHINIST or MICRO IF IND. Reviewed date:08/15/2024 06:53:11 PM Interpretation: Performing Lab: Notes/Report: [facility] ,Color UrineLT. YELLOWYELLOWClarity UrineCLEARCLEARSpecific [place] Urine1.010 1.005-1.025pH Urine6.05.0-9.0Protein UrineNEGATIVENEG/TRACE mg/dLGlucose Urine UANEGATIVENEGATIVE mg/dLBilirubin UrineNEGATIVENEGATIVEKetones Ybaqc08KTXWNZDQ mg/dLBlood UrineNEGATIVENEGATIVENitrite UrineNEGATIVENEGATIVEUrobilinogen Urine 0.20.2-1.0 EU/dLLeukocyte Esterase UrineNEGATIVENEGATIVEUrine Microscopic IndicatedNOPerforming Lab:see noteML - [facility] LBXR chest 2V Reviewed date:08/15/2024 06:53:11 PM Interpretation: Performing Lab: Notes/Report: Source Facility: [place] [address] XRay Report Signed Patient: JUAN GARCIA MR#: [id number] : 1990 Acct:[id number] Age/Sex: 34 / F ADM Date: 08/15/24 Loc: ER Attending Dr: Ordering Physician: Domenica Romeo Date of Service: 08/15/24 Procedure(s): XR chest 2V Accession Number(s): [id number] cc: Domenica Romeo; Britt Alas M.D. 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 08/15/2024 2:22 PM Dictation Location: [place] [address] Electronically authenticated by: [id number] Y Date: 08/15/2024 14:22 Dictated By: Cornel Medel M.D. Signed By: 08/15/24 1424 DD/ 1422 TD/TT: Dolphin Trainer:BLOOD CULTURE ID PANEL Reviewed date:08/29/2024 05:13:56 PM Interpretation: Performing Lab: Notes/Report: [facility] ,CTX-MNOT DETECTEDNOT DETECTEIMPNOT DETECTEDNOT DETECTEKPCNOT DETECTEDNOT DETECTEmcr-1NOT DETECTEDNOT DETECTEmecA/CNOT APPLICABLENOT DETECTEmecA/C and MREJ (MRSA)NOT APPLICABLENOT DETECTENDMNOT DETECTEDNOT FRHRYUMMNZ-98-lyfcOVC DETECTEDNOT DETECTEvanA/BNOT APPLICABLENOT DETECTEVIMNOT DETECTEDNOT DETECTE SourceBLOODEnterococcus faecalisNOT DETECTEDNOT DETECTEEnterococcus faeciumNOT DETECTEDNOT DETECTEListeria monocytogenesNOT DETECTEDNOT DETECTEStaphylococcus spp.NOT DETECTEDNOT DETECTEStaphylococcus aureusNOT DETECTEDNOT DETECTE Staphylococcus epidermidisNOT DETECTEDNOT DETECTEStaphylococcus lugdunensisNOT DETECTEDNOT DETECTEStreptococcus spp.NOT DETECTEDNOT DETECTEStreptococcus agalactiaeNOT DETECTEDNOT DETECTEStreptococcus pneumoniaeNOT DETECTEDNOT DETECTE Streptococcus pyogenesNOT DETECTEDNOT DETECTEA. calcoaceticus-baumannii CpxNOT DETECTEDNOT DETECTEBacteroides fragilisNOT DETECTEDNOT DETECTEEnterobacterales DETECTEDNOT DETECTE RESULTS CALLED TO KANWAL ARITA RN @BY Andie Yepez at 0040 Enterobacter cloacae complexNOT DETECTEDNOT DETECTEEscherichia coliNOT DETECTED NOT DETECTEKlebsiella aerogenesNOT DETECTEDNOT DETECTEKlebsiella oxytocaNOT DETECTEDNOT DETECTEKlebsiella pneumoniae groupDETECTEDNOT DETECTE RESULTS CALLED TO KANWAL ARITA RN @BY Andie Yepez at 0040 Proteus spp.NOT DETECTEDNOT DETECTESalmonella spp.NOT DETECTEDNOT DETECTE Serratia marcescensNOT DETECTEDNOT DETECTEHaemophilus influenzaeNOT DETECTEDNOT DETECTENeisseria meningitidisNOT DETECTEDNOT DETECTEPseudomonas aeruginosaNOT DETECTEDNOT DETECTEStenotrophomonas maltophiliaNOT DETECTEDNOT DETECTECandida albicansNOT DETECTEDNOT DETECTECandida aurisNOT DETECTEDNOT DETECTECandida glabrataNOT DETECTEDNOT DETECTECandida kruseiNOT DETECTEDNOT DETECTECandida parapsilosisNOT DETECTEDNOT DETECTECandida tropicalisNOT DETECTEDNOT DETECTE Cryptococcus neoformans/gattiiNOT DETECTEDNOT DETECTEPerforming Lab:see noteML - [facility] LBAerobe ID + Suscept Reviewed date:09/02/2024 02:54:42 PM Interpretation: Performing Lab: Notes/Report: [facility] ,Aerobe ID + SusceptSee Below For Report Aerobe ID + Suscept Organism: Gram negative jeffery : O:GNR Isolated O:KLEBPN Isolated Organism: 1.2 Antibiotic Interpretation SANDHYA Status Aerobe ID + Suscept*ABNORMAL* Aerobe ID + Suscept Organism: Gram negative jeffery : O:GNR Isolated O:KLEBPN Isolated Organism: 1.2 Antibiotic Interpretation SANDHYA Status Aerobe ID + SusceptRecovered from aerobic bottle only. Aerobe ID + Suscept Organism: Gram negative jeffery : O:GNR Isolated O:KLEBPN Isolated Organism: 1.2 Antibiotic Interpretation SANDHYA Status Aerobe ID + SusceptGram negative jeffery Aerobe ID + Suscept Organism: Gram negative jeffery : O:GNR Isolated O:KLEBPN Isolated Organism: 1.2 Antibiotic Interpretation SANDHYA Status Aerobe ID + SusceptOrganism: Klebsiella pneumoniae. : Aerobe ID + Suscept Organism: Gram negative jeffery : O:GNR Isolated O:KLEBPN Isolated Organism: 1.2 Antibiotic Interpretation SANDHYA Status Aerobe ID + Suscept*ABNORMAL* Aerobe ID + Suscept Organism: Gram negative jeffery : O:GNR Isolated O:KLEBPN Isolated Organism: 1.2 Antibiotic Interpretation SANDHYA Status Aerobe ID + SusceptRecovered from aerobic bottle only. Aerobe ID + Suscept Organism: Gram negative jeffery : O:GNR Isolated O:KLEBPN Isolated Organism: 1.2 Antibiotic Interpretation SANDHYA Status Aerobe ID + SusceptKlebsiella pneumoniae. Aerobe ID + Suscept Organism: Gram negative jeffery : O:GNR Isolated O:KLEBPN Isolated Organism: 1.2 Antibiotic Interpretation SANDHYA Status Aerobe ID + SusceptSee Below For Report Aerobe ID + Suscept Organism: Gram negative jeffery : O:GNR Isolated O:KLEBPN Isolated Organism: 1.2 Antibiotic Interpretation SANDHYA Status Aerobe ID + SusceptSee Below For Report Aerobe ID + Suscept Organism: Gram negative jeffery : O:GNR Isolated O:KLEBPN Isolated Organism: 1.2 Antibiotic Interpretation SANDHYA Status Aerobe ID + SusceptPerformed at: CB - [facility] [place] Aerobe ID + Suscept Organism: Gram negative jeffery : O:GNR Isolated O:KLEBPN Isolated Organism: 1.2 Antibiotic Interpretation SANDHYA Status Aerobe ID + [id number] [place], [place] [id number] Aerobe ID + Suscept Organism: Gram negative jeffery : O:GNR Isolated O:KLEBPN Isolated Organism: 1.2 Antibiotic Interpretation SANDHYA Status Aerobe ID + SusceptLab Director: Daron Almanza PhD, Phone: [phone] Aerobe ID + Suscept Organism: Gram negative jeffery : O:GNR Isolated O:KLEBPN Isolated Organism: 1.2 Antibiotic Interpretation SANDHYA Status Aerobe ID + SusceptSee Below For Report Aerobe ID + Suscept Organism: Gram negative jeffery : O:GNR Isolated O:KLEBPN Isolated Organism: 1.2 Antibiotic Interpretation SANDHYA Status Aerobe ID + SusceptAMOXICILLIN/CLAVULANIC ACID S F Aerobe ID + Suscept Organism: Gram negative jeffery : O:GNR Isolated O:KLEBPN Isolated Organism: 1.2 Antibiotic Interpretation SANDHYA Status Aerobe ID + SusceptAmpicillin R F Aerobe ID + Suscept Organism: Gram negative jeffery : O:GNR Isolated O:KLEBPN Isolated Organism: 1.2 Antibiotic Interpretation SANDHYA Status Aerobe ID + SusceptCefazolin S F Aerobe ID + Suscept Organism: Gram negative jeffrey : O:GNR Isolated O:KLEBPN Isolated Organism: 1.2 Antibiotic Interpretation SANDHYA Status Aerobe ID + SusceptCefepime S F Aerobe ID + Suscept Organism: Gram negative jeffery : O:GNR Isolated O:KLEBPN Isolated Organism: 1.2 Antibiotic Interpretation SANDHYA Status Aerobe ID + SusceptCefoxitin S F Aerobe ID + Suscept Organism: Gram negative jeffery : O:GNR Isolated O:KLEBPN Isolated Organism: 1.2 Antibiotic Interpretation SANDHYA Status Aerobe ID + SusceptCefpodoxime S F Aerobe ID + Suscept Organism: Gram negative jeffery : O:GNR Isolated O:KLEBPN Isolated Organism: 1.2 Antibiotic Interpretation SANDHYA Status Aerobe ID + SusceptCeftriaxone S F Aerobe ID + Suscept Organism: Gram negative jeffery : O:GNR Isolated O:KLEBPN Isolated Organism: 1.2 Antibiotic Interpretation SANDHYA Status Aerobe ID + SusceptCiprofloxacin S F Aerobe ID + Suscept Organism: Gram negative jeffery : O:GNR Isolated O:KLEBPN Isolated Organism: 1.2 Antibiotic Interpretation SANDHYA Status Aerobe ID + SusceptErtapenem S F Aerobe ID + Suscept Organism: Gram negative jeffery : O:GNR Isolated O:KLEBPN Isolated Organism: 1.2 Antibiotic Interpretation SANDHYA Status Aerobe ID + SusceptGentamicin S F Aerobe ID + Suscept Organism: Gram negative jeffery : O:GNR Isolated O:KLEBPN Isolated Organism: 1.2 Antibiotic Interpretation SANDHYA Status Aerobe ID + SusceptLevofloxacin S F Aerobe ID + Suscept Organism: Gram negative jeffery : O:GNR Isolated O:KLEBPN Isolated Organism: 1.2 Antibiotic Interpretation SANDHYA Status Aerobe ID + SusceptMeropenem S F Aerobe ID + Suscept Organism: Gram negative jeffery : O:GNR Isolated O:KLEBPN Isolated Organism: 1.2 Antibiotic Interpretation SANDHYA Status Aerobe ID + SusceptTetracycline S F Aerobe ID + Suscept Organism: Gram negative jeffery : O:GNR Isolated O:KLEBPN Isolated Organism: 1.2 Antibiotic Interpretation SANDHYA Status Aerobe ID + SusceptTobramycin S F Aerobe ID + Suscept Organism: Gram negative jeffery : O:GNR Isolated O:KLEBPN Isolated Organism: 1.2 Antibiotic Interpretation SANDHYA Status Aerobe ID + SusceptTrimethoprim/Sulfamethoxazole S F Aerobe ID + Suscept Organism: Gram negative jeffery : O:GNR Isolated O:KLEBPN Isolated Organism: 1.2 Antibiotic Interpretation SANDHYA Status Aerobe ID + SusceptPiperacillin/Tazobactam S F Aerobe ID + Suscept Organism: Gram negative jeffery : O:GNR Isolated O:KLEBPN Isolated Organism: 1.2 Antibiotic Interpretation SANDHYA Status Performing Lab:see note LC - [facility] LB SEE REPORT - Direct Sales Professional Id information not found for OBX-specific licensed sales producer legend Anaerobe Identification Only Reviewed date:09/04/2024 07:21:01 PM Interpretation: Performing Lab: Notes/Report: [facility] ,Anaerobe Identification OnlySee Below For Report Anaerobe Identification Only WILL FOLLOW Anaerobe Identification Only Anaerobe Identification Only WILL FOLLOW Anaerobe Identification OnlySpecimen has been received and testing has been initiated. Anaerobe Identification Only WILL FOLLOW Anaerobe Identification Only Anaerobe Identification Only WILL FOLLOW Anaerobe Identification OnlyNo anaerobes recovered. Anaerobe Identification Only WILL FOLLOW Anaerobe Identification OnlyPerformed at: - [facility] [place] Anaerobe Identification Only WILL FOLLOW Anaerobe Identification [id number] [place], [place] [id number] Anaerobe Identification Only WILL FOLLOW Anaerobe Identification OnlyLab Director: Daron Almanza PhD, Phone: [phone] Anaerobe Identification Only WILL FOLLOW Performing Lab:see note LC - [facility] LB SEE REPORT - Direct Sales Professional Id information not found for OBX-specific licensed sales producer legend XR chest 2V Reviewed date:08/28/2024 06:06:36 PM Interpretation: Performing Lab: Notes/Report: Source Facility: [place] [address] XRay Report Signed Patient: JUAN GARCIA MR#: [id number] : 1990 Acct:[id number] Age/Sex: 34 / F ADM Date: 08/28/24 Loc: ER Attending Dr: Ordering Physician: Domenica Romeo Date of Service: 08/28/24 Procedure(s): XR chest 2V Accession Number(s): [id number] cc: Domenica Romeo; Britt Alas M.D. [place] [address] Patient Name: JUAN GARCIA MRN: [id number] date: 1990 Sex: F Assigned Patient Location: ER Current Patient Location: ER Accession/Order Number: [id number] Exam Date: 08/28/2024 16:39 Report Date: 08/28/2024 16:40 At the request of: DOMENICA ROMEO GREEN ME[employer] GRADER Procedure: XR chest 2V XR chest 2V [...] Hutchinson M.D. 08/28/2024 4:40 PM Dictation Location: [place] [address] Electronically authenticated by: [id number] Y Date: 08/28/2024 16:40 Dictated By: Roddy Hutchinson M.D. Signed By: 08/28/24 1642 DD/ 1640 TD/TT: Dolphin Trainer:CT abdomen pelvis w con Reviewed date:08/28/2024 06:06:36 PM Interpretation: Performing Lab: Notes/Report: Source Facility: [place] [address] CT Scan Report Signed Patient: JUAN GARCIA MR#: [id number] : 1990 Acct:[id number] Age/Sex: 34 / F ADM Date: 08/28/24 Loc: ER Attending Dr: Ordering Physician: Domenica Romeo Date of Service: 08/28/24 Procedure(s): CT abdomen pelvis w con Accession Number(s): [id number] cc: Britt Alas M.D. [place] [address] Patient Name: JUAN GARCIA MRN: [id number] date: 1990 Sex: F Assigned Patient Location: ER Current Patient Location: ER Accession/Order Number: [id number] Exam Date: 08/28/2024 16:40 Report Date: 08/28/2024 16:46 At the request of: DOMENICA ROMEO GREEN ME[employer] GRADER Procedure: CT abdomen pelvis w con CT [...] Hutchinson M.D. 08/28/2024 4:46 PM Dictation Location: [place] [address] Electronically authenticated by: [id number] Y Date: 08/28/2024 16:46 Dictated By: Roddy Hutchinson M.D. Signed By: 08/28/24 1649 DD/ 1646 TD/TT: Dolphin Trainer:Aerobe ID + Suscept Reviewed date:09/04/2024 07:21:01 PM Interpretation: Performing Lab: Notes/Report: [facility] ,Aerobe ID + SusceptSee Below For Report Organism: 1.2 Antibiotic Interpretation SANDHYA Status Aerobe ID + Suscept Organism: Gram negative jeffery : O:GNR Isolated O:KLEBPN Isolated Aerobe ID + Suscept*ABNORMAL* Organism: 1.2 Antibiotic Interpretation SANDHYA Status Aerobe ID + Suscept Organism: Gram negative jeffery : O:GNR Isolated O:KLEBPN Isolated Aerobe ID + SusceptRecovered from anaerobic bottle only. Organism: 1.2 Antibiotic Interpretation SANDHYA Status Aerobe ID + Suscept Organism: Gram negative jeffery : O:GNR Isolated O:KLEBPN Isolated Aerobe ID + SusceptGram negative ejffery Organism: 1.2 Antibiotic Interpretation SANDHYA Status Aerobe ID + Suscept Organism: Gram negative jeffery : O:GNR Isolated O:KLEBPN Isolated Aerobe ID + SusceptOrganism: Klebsiella pneumoniae. : Organism: 1.2 Antibiotic Interpretation SANDHYA Status Aerobe ID + Suscept Organism: Gram negative jeffery : O:GNR Isolated O:KLEBPN Isolated Aerobe ID + Suscept*ABNORMAL* Organism: 1.2 Antibiotic Interpretation SANDHYA Status Aerobe ID + Suscept Organism: Gram negative jeffery : O:GNR Isolated O:KLEBPN Isolated Aerobe ID + SusceptRecovered from anaerobic bottle only. Organism: 1.2 Antibiotic Interpretation SANDHYA Status Aerobe ID + Suscept Organism: Gram negative jeffery : O:GNR Isolated O:KLEBPN Isolated Aerobe ID + SusceptKlebsiella pneumoniae. Organism: 1.2 Antibiotic Interpretation SANDHYA Status Aerobe ID + Suscept Organism: Gram negative jeffery : O:GNR Isolated O:KLEBPN Isolated Aerobe ID + SusceptSee Below For Report Organism: 1.2 Antibiotic Interpretation SANDHYA Status Aerobe ID + Suscept Organism: Gram negative jeffery : O:GNR Isolated O:KLEBPN Isolated Aerobe ID + SusceptSee Below For Report Organism: 1.2 Antibiotic Interpretation SANDHYA Status Aerobe ID + Suscept Organism: Gram negative jeffery : O:GNR Isolated O:KLEBPN Isolated Aerobe ID + SusceptSee Below For Report Organism: 1.2 Antibiotic Interpretation SANDHYA Status Aerobe ID + Suscept Organism: Gram negative jeffery : O:GNR Isolated O:KLEBPN Isolated Aerobe ID + SusceptAMOXICILLIN/CLAVULANIC ACID S F Organism: 1.2 Antibiotic Interpretation SANDHYA Status Aerobe ID + Suscept Organism: Gram negative jeffery : O:GNR Isolated O:KLEBPN Isolated Aerobe ID + SusceptAmpicillin R F Organism: 1.2 Antibiotic Interpretation SANDHYA Status Aerobe ID + Suscept Organism: Gram negative jeffery : O:GNR Isolated O:KLEBPN Isolated Aerobe ID + SusceptCefazolin S F Organism: 1.2 Antibiotic Interpretation SANDHYA Status Aerobe ID + Suscept Organism: Gram negative jeffery : O:GNR Isolated O:KLEBPN Isolated Aerobe ID + SusceptCefepime S F Organism: 1.2 Antibiotic Interpretation SANDHYA Status Aerobe ID + Suscept Organism: Gram negative jeffery : O:GNR Isolated O:KLEBPN Isolated Aerobe ID + SusceptCefoxitin S F Organism: 1.2 Antibiotic Interpretation SANDHYA Status Aerobe ID + Suscept Organism: Gram negative jeffery : O:GNR Isolated O:KLEBPN Isolated Aerobe ID + SusceptCefpodoxime S F Organism: 1.2 Antibiotic Interpretation SANDHYA Status Aerobe ID + Suscept Organism: Gram negative jeffery : O:GNR Isolated O:KLEBPN Isolated Aerobe ID + SusceptCeftriaxone S F Organism: 1.2 Antibiotic Interpretation SANDHYA Status Aerobe ID + Suscept Organism: Gram negative jeffery : O:GNR Isolated O:KLEBPN Isolated Aerobe ID + SusceptCiprofloxacin S F Organism: 1.2 Antibiotic Interpretation SANDHYA Status Aerobe ID + Suscept Organism: Gram negative jeffery : O:GNR Isolated O:KLEBPN Isolated Aerobe ID + SusceptErtapenem S F Organism: 1.2 Antibiotic Interpretation SANDHYA Status Aerobe ID + Suscept Organism: Gram negative jeffery : O:GNR Isolated O:KLEBPN Isolated Aerobe ID + SusceptGentamicin S F Organism: 1.2 Antibiotic Interpretation SANDHYA Status Aerobe ID + Suscept Organism: Gram negative jeffery : O:GNR Isolated O:KLEBPN Isolated Aerobe ID + SusceptLevofloxacin S F Organism: 1.2 Antibiotic Interpretation SANDHYA Status Aerobe ID + Suscept Organism: Gram negative jeffery : O:GNR Isolated O:KLEBPN Isolated Aerobe ID + SusceptMeropenem S F Organism: 1.2 Antibiotic Interpretation SANDHYA Status Aerobe ID + Suscept Organism: Gram negative jeffery : O:GNR Isolated O:KLEBPN Isolated Aerobe ID + SusceptTetracycline S F Organism: 1.2 Antibiotic Interpretation SANDHYA Status Aerobe ID + Suscept Organism: Gram negative jeffery : O:GNR Isolated O:KLEBPN Isolated Aerobe ID + SusceptTobramycin S F Organism: 1.2 Antibiotic Interpretation SANDHYA Status Aerobe ID + Suscept Organism: Gram negative jeffery : O:GNR Isolated O:KLEBPN Isolated Aerobe ID + SusceptTrimethoprim/Sulfamethoxazole S F Organism: 1.2 Antibiotic Interpretation SANDHYA Status Aerobe ID + Suscept Organism: Gram negative jeffery : O:GNR Isolated O:KLEBPN Isolated Aerobe ID + SusceptPiperacillin/Tazobactam S F Organism: 1.2 Antibiotic Interpretation SANDHYA Status Aerobe ID + Suscept Organism: Gram negative jeffery : O:GNR Isolated O:KLEBPN Isolated Performing Lab:see note LC - [facility] LB SEE REPORT - Direct Sales Professional Id information not found for OBX-specific licensed sales producer legend CBC AUTO DIFF Reviewed date:08/29/2024 05:13:55 PM Interpretation: Performing Lab: Notes/Report: [facility] ,White Blood Count5.84.0-11.0 10 3/uLRed Blood Count3.554.20-5.40 10 6/uL Tdywqmwogx73.912.0-16.0 g/wSGwvoglysmn26.536.0-48.0 %Mean Corpuscular Eiiese08.5 81.0-99.0 fLMean Corpuscular Pkwzyevibx43.726.7-34.0 pgMean Corpuscular HGB Conc 33.529.9-35.2 g/dLRed Cell Distribution Width13.911.0-15.0 %Platelet Ajsge100 150-450 10 3/uLMean Platelet Ksrszg20.29.5-13.5 fLNeutrophils Percent Auto60.6 43.0-75.0 %Lymphocytes Percent Auto26.520.5-60.0 %Monocytes Percent Auto10.21.7- 12.0 %Eosinophils Percent Auto1.20.9-7.0 %Basophils Percent Auto1.20.2-2.0 % Immature Granulocytes Pct Auto0.30.0-0.5 %Neutrophils Absolute Auto3.51.4-6.5 10 3/uLLymphocytes Absolute Auto1.51.2-3.8 10 3/uLMonocytes Absolute Auto0.60.3- 0.8 10 3/uLEosinophils Absolute Auto0.10.0-0.7 10 3/uLBasophils Absolute Auto0.1 0.0-0.1 10 3/uLImmature Granulocytes Abs Auto0.020.00-0.03 10 3/uLPerforming Lab:see noteML - [facility] LBMAGNESIUM Reviewed date:08/29/2024 05:13:55 PM Interpretation: Performing Lab: Notes/Report: [facility] ,Magnesium1.71.8-2.4 mg/dLPerforming Lab:see note - [facility] LB PHOSPHORUS Reviewed date:08/29/2024 05:13:55 PM Interpretation: Performing Lab: Notes/Report: [facility] ,Phosphorus2.82.6-4.7 mg/dLPerforming Lab:see note - [facility] PROF 14(COMP METB) Reviewed date:08/29/2024 05:13:56 PM Interpretation: Performing Lab: Notes/Report: [facility] ,Qtobje179824-745 mmol/LPotassium3.63.5-5.1 mmol/MZstdtaxg07149-947 mmol/LCarbon Jbemzdr83.221.0-32.0 mmol/LAnion Gap13.1Lomjrxt3666-528 mg/dLBlood Urea Nitrogen6.07.0-18.0 mg/dLCreatinine0.520.55-1.02 mg/dLEstimated GFR ( [place]>60>=60 mL/min/1.73m 2Estimated GFR (Non- Caroline>60>=60 mL/min/1.73m 2BUN Creatinine Ratio11.0Voepgeu4.98.5-10.1 mg/dLBilirubin Total0.40.2-1.0 mg/dL Aspartate Amino Ujwnlzeatmo9994-25 U/LAlanine Rymvjvwvbqdibnfe0012-51 U/L Alkaline Chcryjrmian2266-976 U/LTotal Protein5.46.4-8.2 g/dLAlbumin Level2.33.4- 5.0 g/dLGlobulin3.1Albumin Globulin Ratio0.7Performing Lab:see noteML - [facility] LBMAGNESIUM Reviewed date:08/31/2024 05:12:17 PM Interpretation: Performing Lab: Notes/Report: [facility] ,Magnesium1.91.8-2.4 mg/dLPerforming Lab:see note - [facility] PROF CHEM 8 (BAS METB) Reviewed date:08/31/2024 05:12:17 PM Interpretation: Performing Lab: Notes/Report: [facility] ,Nfypyr695079-117 mmol/LPotassium3.53.5-5.1 mmol/IAxisvgnf18853-119 mmol/LCarbon Qmhvked51.821.0-32.0 mmol/LAnion Gap13.7Djojqjb1370-795 mg/dLBlood Urea Nitrogen3.07.0-18.0 mg/dLCreatinine0.510.55-1.02 mg/dLEstimated GFR ( [place]>60>=60 mL/min/1.73m 2Estimated GFR (Non- Caroline>60>=60 mL/min/1.73m 2BUN Creatinine Ratio5.7Cxdaenj4.28.5-10.1 mg/dLPerforming Lab:see note - [facility] Reviewed date:08/31/2024 05:12:17 PM Interpretation: Performing Lab: Notes/Report: [facility] ,White Blood Count3.34.0-11.0 10 3/uLRed Blood Count3.384.20-5.40 10 6/uL Hugcvhmkmn56.112.0-16.0 g/tTUzyvragjra32.236.0-48.0 %Mean Corpuscular Ikymfz68.3 81.0-99.0 fLMean Corpuscular Pibxayoucx78.926.7-34.0 pgMean Corpuscular HGB Conc 32.429.9-35.2 g/dLRed Cell Distribution Width13.711.0-15.0 %Platelet Xdgeh307 150-450 10 3/uLMean Platelet Jilwqx16.89.5-13.5 fLPerforming Lab:see note - [facility] LBHCG Qualitative* Reviewed date:08/31/2024 05:12:17 PM Interpretation: Performing Lab: Notes/Report: [facility] ,HCG QualitativeNEGATIVENEGATIVEPerforming Lab:see note - [facility] LBCBC AUTO DIFF Reviewed date:09/17/2024 07:49:06 PM Interpretation: Performing Lab: Notes/Report: [facility] ,White Blood Count4.64.0-11.0 10 3/uLRed Blood Count3.804.20-5.40 10 6/uL Cgybkkulld09.312.0-16.0 g/oSOjnhlhztiu33.836.0-48.0 %Mean Corpuscular Uwsnbb44.9 81.0-99.0 fLMean Corpuscular Uzlssqgxuc49.726.7-34.0 pgMean Corpuscular HGB Conc 33.429.9-35.2 g/dLRed Cell Distribution Width14.011.0-15.0 %Platelet Geyat080 150-450 10 3/uLMean Platelet Ppqluc12.39.5-13.5 fLNeutrophils Percent Auto43.9 43.0-75.0 %Lymphocytes Percent Auto43.620.5-60.0 %Monocytes Percent Auto9.01.7- 12.0 %Eosinophils Percent Auto2.60.9-7.0 %Basophils Percent Auto0.70.2-2.0 % Immature Granulocytes Pct Auto0.20.0-0.5 %Neutrophils Absolute Auto2.01.4-6.5 10 3/uLLymphocytes Absolute Auto2.01.2-3.8 10 3/uLMonocytes Absolute Auto0.40.3- 0.8 10 3/uLEosinophils Absolute Auto0.10.0-0.7 10 3/uLBasophils Absolute Auto0.0 0.0-0.1 10 3/uLImmature Granulocytes Abs Auto0.010.00-0.03 10 3/uLPerforming Lab:see noteML - [facility] LBMAGNESIUM Reviewed date:09/17/2024 07:49:06 PM Interpretation: Performing Lab: Notes/Report: [facility] ,Magnesium1.71.8-2.4 mg/dLPerforming Lab:see noteML - [facility] LB PROF CHEM 8 (BAS METB) Reviewed date:09/17/2024 07:49:06 PM Interpretation: Performing Lab: Notes/Report: [facility] ,[id number] mmol/LPotassium3.63.5-5.1 mmol/IRdzmnpbz28888-818 mmol/LCarbon Wtglomw33.521.0-32.0 mmol/LAnion Gap14.3Afryrrd1243-189 mg/dLBlood Urea Nitrogen6.07.0-18.0 mg/dLCreatinine0.660.55-1.02 mg/dLEstimated GFR ( Shelby>60>=60 mL/min/1.73m 2Estimated GFR (Non- Caroline>60>=60 mL/min/1.73m 2BUN Creatinine Ratio9.9Gqvpswg2.48.5-10.1 mg/dLPerforming Lab:see noteML - [facility] LBUA RANDOM W or MICROSCOPIC Reviewed date:09/17/2024 07:49:06 PM Interpretation: Performing Lab: Notes/Report: [facility] ,Color UrineYELLOWYELLOWClarity UrineCLEARCLEARSpecific [place] Urine1.020 1.005-1.025pH Urine6.05.0-9.0Protein UrineNEGATIVENEG/TRACE mg/dLGlucose Urine UANEGATIVENEGATIVE mg/dLBilirubin UrineNEGATIVENEGATIVEKetones UrineTRACE NEGATIVE mg/dLBlood UrineNEGATIVENEGATIVENitrite UrineNEGATIVENEGATIVE Urobilinogen Urine0.20.2-1.0 EU/dLLeukocyte Esterase UrineNEGATIVENEGATIVEWBC UrineNONE SEENNONE SEEN #/HPFRBC Urine0-20-2 #/HPFBacteria UrineTRACENONE SEEN #/HPFMucus UrineNONE SEENNONE SEENSquamous Epithelial Cell UrineMANYNONE/RARE #/LPFCrystals Seen?None SeenNone Seen #/HPFCast Seen?NONE SEENNONE SEEN #/LPF Urine Culture IndicatedNOPerforming Lab:see noteML - [facility] LBECG 12 lead Reviewed date:09/17/2024 07:49:06 PM Interpretation: Performing Lab: Notes/Report: Source Facility: [facility]-[address] [place] [address] [address] Electrocardiograph Report Signed Patient: JUAN GARCIA MR#: [id number] : 1990 Acct:[id number] Age/Sex: 34 / F ADM Date: 09/15/24 Loc: ER Attending Dr: Ordering Physician: Leslie Terrazas M.D. 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 Measurements Intervals [place] Rate: 97 P: 90 KS: 136 QRS: 92 QRSD: 82 T: 18 QT: 356 QTc: 411 Interpretive Statements 1100 Sinus rhythm 4068 Nonspecific Twave abnormality 7102 Moderate right axis deviation Abnormal ECG Compared to ECG 08/29/2024 05:28:41 Right-axis deviation now present Electronically Signed On 09-15-2024 18:32:41 EDT by JAMES HODGES M.D. Dictated By: JAMES HODGES Signed By: 09/15/24 1833 DD/ 1637 TD/TT: Dolphin Trainer:ARABELLA chest 1V Reviewed date:09/17/2024 07:49:06 PM Interpretation: Performing Lab: Notes/Report: Source Facility: [place] [address] [place] [address] XRay Report Signed Patient: JUAN GARCIA MR#: [id number] : 1990 Acct:[id number] Age/Sex: 34 / F ADM Date: 09/15/24 Loc: ER Attending Dr: Ordering Physician: Leslie Terrazas M.D. Date of Service: 09/15/24 Procedure(s): XR chest 1V Accession Number(s): [id number] cc: Britt Alas M.D.; Leslie Terrazas M.D. [place] [address] Patient Name: JUAN GARCIA MRN: [id number] date: 1990 Sex: F Assigned Patient Location: ER Current Patient Location: ER Accession/Order Number: [id number] Exam Date: 09/15/2024 17:03 Report Date: 09/15/2024 [...] Lundberg M.D. 09/15/2024 5:04 PM Dictation Location: [place] [address] Electronically authenticated by: [id number] Y Date: 09/15/2024 17:04 Dictated By: Tio Lundberg M.D. Signed By: 09/15/24 1707 DD/ 1704 TD/TT: Dolphin Trainer:CBC AUTO DIFF Reviewed date:09/20/2024 12:30:47 PM Interpretation: Performing Lab: Notes/Report: [facility] ,White Blood Count5.24.0-11.0 10 3/uLRed Blood Count4.094.20-5.40 10 6/uL Qypjpwckxs39.112.0-16.0 g/aAYuxoeibvaf09.436.0-48.0 %Mean Corpuscular Lfzhvg02.4 81.0-99.0 fLMean Corpuscular Dbbrdodebb75.626.7-34.0 pgMean Corpuscular HGB Conc 32.429.9-35.2 g/dLRed Cell Distribution Width14.011.0-15.0 %Platelet Sggyx662 150-450 10 3/uLMean Platelet Jizhgc93.39.5-13.5 fLNeutrophils Percent Auto55.3 43.0-75.0 %Lymphocytes Percent Auto34.820.5-60.0 %Monocytes Percent Auto6.41.7- 12.0 %Eosinophils Percent Auto2.50.9-7.0 %Basophils Percent Auto0.80.2-2.0 % Immature Granulocytes Pct Auto0.20.0-0.5 %Neutrophils Absolute Auto2.91.4-6.5 10 3/uLLymphocytes Absolute Auto1.81.2-3.8 10 3/uLMonocytes Absolute Auto0.30.3- 0.8 10 3/uLEosinophils Absolute Auto0.10.0-0.7 10 3/uLBasophils Absolute Auto0.0 0.0-0.1 10 3/uLImmature Granulocytes Abs Auto0.010.00-0.03 10 3/uLPerforming Lab:see note - [facility] LBLACTATE or LACTIC ACID Reviewed date:09/20/2024 12:30:47 PM Interpretation: Performing Lab: Notes/Report: [facility] ,Lactate/Lactic Acid0.90.4-2.0 mmol/LPerforming Lab:see note - [facility] LBPROF CHEM 8 (BAS METB) Reviewed date:09/20/2024 12:30:47 PM Interpretation: Performing Lab: Notes/Report: [facility] ,Abjarq086713-650 mmol/LPotassium3.73.5-5.1 mmol/CPwjdtuil17782-149 mmol/LCarbon Vwzekad28.921.0-32.0 mmol/LAnion Gap12.5Hqarcyg0705-885 mg/dLBlood Urea Nitrogen7.07.0-18.0 mg/dLCreatinine0.630.55-1.02 mg/dLEstimated GFR ( Shelby>60>=60 mL/min/1.73m 2Estimated GFR (Non- Caroline>60>=60 mL/min/1.73m 2BUN Creatinine Ratio11.7Wyeprqy5.98.5-10.1 mg/dLPerforming Lab:see noteA[facility] LBCBC AUTO DIFF Reviewed date:10/24/2024 02:11:49 PM Interpretation: Performing Lab: Notes/Report: [facility] ,White Blood Count3.64.0-11.0 10 3/uLRed Blood Count3.754.20-5.40 10 6/uL Fqrivftxhn75.412.0-16.0 g/vSJyjplpetmc25.436.0-48.0 %Mean Corpuscular Bfudau41.1 81.0-99.0 fLMean Corpuscular Pcamnoyegp83.426.7-34.0 pgMean Corpuscular HGB Conc 34.129.9-35.2 g/dLRed Cell Distribution Width13.711.0-15.0 %Platelet Qtoqq190 150-450 10 3/uLMean Platelet Xeoijh35.79.5-13.5 fLNeutrophils Percent Auto54.6 43.0-75.0 %Lymphocytes Percent Auto36.420.5-60.0 %Monocytes Percent Auto7.31.7- 12.0 %Eosinophils Percent Auto1.10.9-7.0 %Basophils Percent Auto0.60.2-2.0 % Immature Granulocytes Pct Auto0.00.0-0.5 %Neutrophils Absolute Auto2.01.4-6.5 10 3/uLLymphocytes Absolute Auto1.31.2-3.8 10 3/uLMonocytes Absolute Auto0.30.3- 0.8 10 3/uLEosinophils Absolute Auto0.00.0-0.7 10 3/uLBasophils Absolute Auto0.0 0.0-0.1 10 3/uLImmature Granulocytes Abs Auto0.000.00-0.03 10 3/uLPerforming Lab:see noteML - [facility] LBCRP Reviewed date:10/24/2024 02:11:49 PM Interpretation: Performing Lab: Notes/Report: [facility] ,C Reactive Protein<0.50<=0.50 mg/dLPerforming Lab:see noteML - [facility] LBPROF CHEM 8 (BAS METB) Reviewed date:10/24/2024 02:11:49 PM Interpretation: Performing Lab: Notes/Report: [facility] ,Aycath987817-803 mmol/LPotassium3.73.5-5.1 mmol/KMujvnqrz50038-669 mmol/LCarbon Mzbmfef36.321.0-32.0 mmol/LAnion Gap15.3Micslai8756-816 mg/dLBlood Urea Nitrogen4.07.0-18.0 mg/dLCreatinine0.630.55-1.02 mg/dLEstimated GFR ( Shelby>60>=60 mL/min/1.73m 2Estimated GFR (Non- Caroline>60>=60 mL/min/1.73m 2BUN Creatinine Ratio6.7Jfnuxwj0.38.5-10.1 mg/dLPerforming Lab:see note - [facility] LBHCG Qualitative* Reviewed date:10/29/2024 12:41:46 PM Interpretation: Performing Lab: Notes/Report: [facility] ,HCG QualitativeNEGATIVENEGATIVEPerforming Lab:see [facility] LBPTT Reviewed date:10/30/2024 02:53:54 PM Interpretation: Performing Lab: Notes/Report: [facility] ,Partial Thromboplastin Time28.622.3-36.2 secPerforming Lab:see [facility] LBProthrombin Time INR Reviewed date:10/30/2024 02:53:54 PM Interpretation: Performing Lab: Notes/Report: [facility] ,Prothrombin Time11.49.0-11.6 secINR1.08 DESIRED INR: 2.0-3.0 CONDITIONS NOT LISTED BELOW 2.5-3.5 FOR PROSTHETIC HEART VALVE REPLACEMENT 2.5-3.5 RECURRENT THROMBOSIS Performing Lab:see [facility] LBTroponin I High Sensitivity Reviewed date:10/30/2024 01:16:30 PM Interpretation: Performing Lab: Notes/Report: [facility] ,Troponin I High Yielqzfaidz954.64.0-51.3 pg/mL RESULTS CALLED TO HENNY SHAH at 1252 CUT-OFF POINTS HAVE BEEN ESTABLISHED BASED ON THE FOURTH UNIVERSAL DEFINITION OF MYOCARDIAL INFARCTION. THE UPPER REFERENCE LIMIT (URL) OF TROPONIN, DEFINED THE 99TH PERCENTILE OF cTnI DISTRIBUTION IN A REFERENCE POPULATION, HAS BEEN CONFIRMED THE DECISION THRESHOLD FOR IA DIAGNOSIS. 99TH PERCENTILE = 51.4 PG/ML NOTE: HIGH-SENSITIVITY TROPONIN ASSAY IS NOT INTENDED TO BE USED IN ISOLATION BUT SHOULD BE INTERPRETED IN CONJUNCTION WITH OTHER DIAGNOSTIC AND CLINICAL INFORMATION. Performing Lab:see noteML - [facility] LBXR chest 2V Reviewed date:11/15/2024 01:03:51 PM Interpretation: Performing Lab: Notes/Report: Source Facility: [facility]-[address] [place] [address] XRay Report Signed Patient: JUAN GARCIA MR#: [id number] : 1990 Acct:[id number] Age/Sex: 34 / F ADM Date: 11/14/24 Loc: ER Attending Dr: Ordering Physician: Otilio Klein Date of Service: 11/14/24 Procedure(s): XR chest 2V Accession Number(s): [id number] cc: Britt Alas M.D.; Otilio Klein [place] [address] Patient Name: JUAN GARCIA MRN: [id number] date: 1990 Sex: F Assigned Patient Location: ED.MAIN Current Patient Location: ED.MAIN Accession/Order Number: [id number] Exam Date: 11/14/2024 16:48 Report Date: 11/14/2024 [...] Davis M.D. 11/14/2024 5:27 PM Dictation Location: [place] [address] Electronically authenticated by: [id number] Y Date: 11/14/2024 17:27 Dictated By: Massimo Davis D.O. 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 [place] [address] Patient Name: JUAN GARCIA MRN: [id number] date: 1990 Sex: F Assigned Patient Location: ED.MAIN Current Patient Location: ED.MAIN Accession/Order Number: [id number] Exam Date: 11/14/2024 18:33 Report Date: 11/14/2024 [...] Davis M.D. 11/14/2024 7:14 PM Dictation Location: [place] [address] Electronically authenticated by: [id number] Y Date: 11/14/2024 19:14 Dictated By: Massimo Davis D.O. Signed By: 11/14/241916 DD/ 13 TD/TT: Dolphin Trainer:CT angio abdomen pelvis Reviewed date:11/15/2024 01:03:51 PM Interpretation: Performing Lab: Notes/Report: Source Facility: [place] [address] CT Scan Report Signed Patient: JUAN GARCIA MR#: [id number] : 1990 Acct:[id number] Age/Sex: 34 / F ADM Date: 11/14/24 Loc: ER Attending Dr: Ordering Physician: Otilio Klein Date of Service: 11/14/24 Procedure(s): CT angio abdomen pelvis Accession Number(s): [id number] cc: Britt Alas M.D. [place] [address] Patient Name: JUAN GARCIA MRN: [id number] date: 1990 Sex: F Assigned Patient Location: ED.MAIN Current Patient Location: ED.MAIN Accession/Order Number: [id number] Exam Date: 11/14/2024 18:33 Report Date: 11/14/2024 [...] Davis M.D. 11/14/2024 7:14 PM Dictation Location: [place] Electronically authenticated by: [id number] Y Date: 11/14/2024 19:14 Dictated By: Massimo Davis D.O. Signed By: 11/14/241916 DD/ 13 TD/TT: Dolphin Trainer:Troponin I High Sensitivity Reviewed date:11/15/2024 01:03:51 PM Interpretation: Performing Lab: Notes/Report: [facility] ,Troponin I High Sensitivity5.74.0-51.3 pg/mL CUT-OFF POINTS HAVE BEEN ESTABLISHED BASED ON THE FOURTH UNIVERSAL DEFINITION OF MYOCARDIAL INFARCTION. THE UPPER REFERENCE LIMIT (URL) OF TROPONIN, DEFINED THE 99TH PERCENTILE OF cTnI DISTRIBUTION IN A REFERENCE POPULATION, HAS BEEN CONFIRMED THE DECISION THRESHOLD FOR IA DIAGNOSIS. 99TH PERCENTILE = 51.4 PG/ML NOTE: HIGH-SENSITIVITY TROPONIN ASSAY IS NOT INTENDED TO BE USED IN ISOLATION BUT SHOULD BE INTERPRETED IN CONJUNCTION WITH OTHER DIAGNOSTIC AND CLINICAL INFORMATION. Performing Lab:see noteML - [facility] LB Reason For Referral No Information Medications Medication SIG (Take, Route, Frequency, Duration) Notes Start Date End Date Status Verapamil HCl 40 MG 1 tablet Oral every 8 hours; Duration: 30 days ActivehydrOXYzine HCl 50 MG1 tablet Orally Once a day at bedtime; Duration: 30 daysActivePlavix 75 MG1 tablet Orally Once a day5ActiveNitroglycerin 0.4 MG1 sl Sublingual Q 5 min as needed for chest pain5ActiveOneTouch Ultra 2 w/DeviceUSE TO MONITOR BLOOD GLUCOSE LEVELS DAILY; Duration: 30Active HYDROcodone-Acetaminophen 5-325 MG 1 - 2 tablet as needed - max 6/day Orally every 6 hrs; Duration: 30 days K56.600 K56.484665ActivetraMADol HCl 50 MG 1 tablet as needed Orally qid; Duration: 30 days As needed PRN17495CticiiAisoctaafr-XLKT-Jnkqvmib 50-325-40 MGTAKE 1 TABLET BY MOUTH EVERY 4 HOURS NEEDED FOR HEADACHE; Duration: 4PRN5ActivePyridium 200 MG1 tablet after meals Orally Three times a day; Duration: 2 days11/22/2024 ActiveLancets 30G -Use 1 lancet E11.9 once daily; Duration: 5Active Prucalopride Succinate 2 MG1 tablet Orally Once a day; Duration: 30 daysActive Aspirin 81 MG1 tablet Orally Once a day11/14/2024tiveLexapro 20 MG1 tablet Orally Once a day06/23/2023ctiveLevothyroxine Sodium 75 MCGTAKE 1 TABLET BY MOUTH EVERY MORNING ON AN EMPTY STOMACH FOR 30 DAYS; Duration: 90Active Ranolazine ER 500 MGTAKE 1 TABLET BY MOUTH TWICE DAILY Oral; Duration: 30 Days ActiveColchicine 0.6 MG1/2 tablet Oral every other day; Duration: 30 daysActive Methocarbamol 500 MGTAKE 1.5 TABLETS BY MOUTH EVERY 6 HRS FOR 30 DAYS; Duration: 30ActiveTest Strips - Test sugar Once daily; Duration: 90 days Dx: E11.9 03/22/2024tiveSucralfate 1 GM1 tablet on an empty stomach Orally TID10/03/2024 ActiveLiothyronine Sodium 5 MCG1 tablet on an empty stomach Orally Once a day; Duration: 30 days06/23/2023ctiveRosuvastatin Calcium 40 MGTAKE 1 TABLET BY MOUTH AT BEDTIME Oral; Duration: 30 DaysActiveRemeron 30 MG1.5 tablet at bedtime Orally Once a day06/23/2023ctiveFerrous Sulfate 325 (65 Fe) MG1 tablet Orally weekly; Duration: 30 days07/19/2023ctiveMetoprolol Succinate ER 25 MGOral; Duration: 30 DaysActiveTriamcinolone Acetonide 0.1 %1 application Externally bid 5ActivetraZODone HCl 100 MG1 tablet Orally upmaxyi8711/18/2023ctive Metoclopramide HCl 10 MG1 tablet before meals Orally achs; Duration: 30 days 5ActiveCompazine 10 MG1 tablet as needed Orally Three times a day 12/22/2023ctiveTopamax 100 MG1 tablet Orally BID; Duration: 30 days06/23/2023 ActiveHydrocortisone 10 MG1 tablet with food or milk Orally once a dayPRN- InjectionActivefentaNYL 25 MCG/HR 1 patch to skin Transdermal Q 3 days K56.600 5ActivefentaNYL 12 MCG/HR 1 patch to skin Transdermal Q3d; Duration: 30 days with a 25mcg patch 5ActiveFreeStyle Hunter 3 ReaderUse to monitor glucose levels multiple times daily DX Diabetes with hypoglycemic episodes; Duration: 365 days10/14/2023 ActiveOndansetron 4 MG 1-2 tablet on the tongue and allow to dissolve Orally q4h; Duration: 30 days As needed 09/29/2023ctiveFreeStyle Hunter 3 Plus Sensor -USE TO MONITOR GLUCOSE CHANGE ONCE EVERY 15 DAYS; Duration: 30Active Social History Tobacco Use: Social History Observation Description Date Details (start date - stop date) Never Smoker NA - NA Tobacco Control (Standard) Question Answer Notes Tobacco use: Nonsmoker AUDIT-C (Standard) Question Answer Notes Did you have a drink containing alcohol in the p ast year? No Vxkyiq5BucxloiamdfglrMculrtrw Problems Problem Type SNOMED Code ICD Code Onset Dates Problem Status W/U Status Risk Notes Problem Gastroparesis (859396210) Gastroparesis ( K31.84) ActiveconfirmedProblemPostgastric surgery syndrome (49561413)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)ActiveconfirmedProblemAsthma (935514858)Asthma (J45.909)Active confirmedProblemGastroesophageal reflux disease (306882330)GERD (gastroesophageal reflux disease) (K21.9)ActiveconfirmedProblemHypothyroidism (57233301)Hypothyroidism (E03.9)ActiveconfirmedProblemCoronary artery disease (30186682)CAD (coronary artery disease) (I25.10)ActiveconfirmedProblemAnxiety (77709746)Anxiety (F41.9)ActiveconfirmedProblemMigraine (46117067)Migraine (G43.909)ActiveconfirmedProblemIrritable bowel syndrome (53127787)IBS (irritable bowel syndrome) (K58.9)ActiveconfirmedProblemGeneralized anxiety disorder (01164539)EDWAR (generalized anxiety disorder) (F41.1)ActiveconfirmedProblemLumbar radiculopathy (258147930)Lumbar radiculopathy (M54.16)ActiveconfirmedProblem Allergic conjunctivitis (959629557)Allergic conjunctivitis (H10.10)Active confirmedProblemAcquired hypothyroidism (664652698)Acquired hypothyroidism (E03.9)ActiveconfirmedProblemHypoglycemia (943371699)Hypoglycemia (E16.2)Active confirmedProblemAnxiety disorder (474138472)Anxiety disorder (F41.9)Active confirmedProblemNeutropenia (511223896)Neutropenia (D70.9)ActiveconfirmedProblem Sepsis (74290926)Sepsis (A41.9)ActiveconfirmedProblemIdiopathic sleep related non-obstructive alveolar hypoventilation (533134575)Hypoxia, sleep related (G47.34)ActiveconfirmedProblemLeukocytosis (678427366)Elevated white blood cell count (D72.829)ActiveconfirmedProblemEdema (357438944)Facial edema (R60.0)Active confirmedProblemGastrostomy present (812368190)PEG (percutaneous endoscopic gastrostomy) status (Z93.1)ActiveconfirmedProblemSevere protein calorie malnutrition (300739511)Severe protein-calorie malnutrition (E43)Activeconfirmed ProblemDisorder of endocrine system (012632398)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.9)ActiveconfirmedProblemMalnutrition of moderate degree ([place]: 60% to less than 75% of standard weight) (40142087)Moderate malnutrition (E44.0)Active confirmedProblemGastrostomy present (694298992)Feeding by G-tube (Z93.1)Active confirmedProblemGastrostomy present (718531146)Gastrostomy in place (Z93.1) ActiveconfirmedProblemJejunostomy tube, device (physical object) (005756765) Jejunostomy tube present (Z93.4)ActiveconfirmedProblemIntestinal obstruction (41073176)Partial intestinal obstruction, unspecified as to cause (K56.600) Activeconfirmed Vital Signs Blood pressure diastolic 88 mm Hg 11/23/2024 Dmibdz24 in11/23/2024lood pressure pkzmpeji383 mm Hg11/23/20245430Zwzvpy022.4 lbs 11/23/2024BMI29.11 kg/m211/23/2024 Encounters Encounter Location Date Provider Diagnosis [facility] [address] [place] [place] [address] 12/04/2024 Brandyn katarina [facility] [facility] [address] 12/04/2024Doug [facility] [facility] [place] [address]/Doug HoyGERD (gastroesophageal reflux disease) K21.9 [facility] [facility] [place] [address] 12/05/2024Doug HoyIBS (irritable bowel syndrome) K58.9[facility] [facility] [place] [address]/03/2024Doug [facility] [facility] [place] [address]/09/2024 Brandyn [facility] [facility] [place] [address]/10/2024[facility] [facility] [place] [address]/10/2024[facility] [facility] [place] [address]/11/2024Doug [facility]oyB[facility] [facility] [place] [address]/Doug HoyGERD (gastroesophageal reflux disease) K21.9BPark[facility] [facility] [place] [address]/04/2024[facility] [facility] [place] [address]/10/2024Doug HoySepsis A41.9B[facility] [facility] [place] [address] 10/26/2024[facility] [facility] [place] [address]/01/2025Doug HoyGERD (gastroesophageal reflux disease) K21.9 [facility] [facility] [place] [address] 10/27/2024[facility] [facility] [place] [address]/Doug [facility] [facility] [place] [address]/[facility] [facility] [place] [address]/[facility] [facility] [place] [address]/Doug HoyGERD (gastroesophageal reflux disease) K21.9BVUche[facility] [facility] [place] [address]/03/2024Doug HoyIBS (irritable bowel syndrome) K58.9BPark[facility] [facility] [place] [address] 10/17/2024[facility] [facility] [place] [address]/04/2024[facility] [facility] [place] [address]/04/2024Doug [facility] [facility] [address]/05/2024Doug HoyPartial intestinal obstruction, unspecified as to cause K56.600Bu[facility] [facility] [place] [address]/Doug HoPark[facility] [facility] [place] [address]/Doug HoyGERD (gastroesophageal reflux disease) K21.9BParkview [facility] [facility] [place] [address]/Doug HoyIBS (irritable bowel syndrome) K58.9BParkview [facility] [place] [address]/[facility] [place] [address]/Doug HoyGERD (gastroesophageal reflux disease) K21.9BParkview [facility] [facility] [place] [address] 09/04/2024[facility] [place] [address]/[facility] [place] [address]/[facility] [place] [address]/Doug [facility] [place] [address]Doug HoyGERD (gastroesophageal reflux disease) K21.9B[facility] [place] [address]/02/2024Doug HoyPartial intestinal obstruction, unspecified as to cause K56.600BVUchealth [facility] [place] [address]/02/2024[facility] [facility] [place] [place] [address]/02/2024Doug [facility] [place] [address]/04/2024Doug HoyGERD (gastroesophageal reflux disease) K21.9BParkview [facility] [place] [address]/08/2024[facility] [place] [address]/Doug HoyGERD (gastroesophageal reflux disease) K21.9BParkview [facility] [place] [address]/07/2024Doug HoyPartial intestinal obstruction, unspecified as to cause K56.600 and GERD (gastroesophageal reflux disease) K21.9BP[facility] [place] [address]/07/2024Doug HoPark[facility] [place] [address]/Doug HoyBColor[facility] [place] [address]/Doug HoyGERD (gastroesophageal reflux disease) K21.9BPark[facility] [place] [address]/Doug HoyElevated white blood cell count D72.829[facility] [place] [address]/ Brandyn [facility]Park[facility] [place] [address] 06/05/2024Doug HoPark[facility] [place] [address]/Doug HoyGERD (gastroesophageal reflux disease) K21.9B[facility] [place] [address]/10/2024 Brandyn HoyPartial intestinal obstruction, unspecified as to cause K56.600 and GERD (gastroesophageal reflux disease) K21.9BVUche[facility] [place] [address]/Doug [facility] [place] [address]/Doug HoPark[facility] [place] [address]/ Brandyn HoyGERD (gastroesophageal reflux disease) K21.9[facility]gn[facility]p[address] [place] [address]/Doug HoyGERD (gastroesophageal reflux disease) K21.9B[facility] [place] [address]/Doug HoyBColor[facility] [address] [place] [address]/03/2024Doug HoyGERD (gastroesophageal reflux disease) K21.9B[facility] [place] [address]/08/2024[facility] [address] [place] [address]/12/2024Doug HoyPartial intestinal obstruction, unspecified as to cause K56.600BV[facility] [place] [address]/Doug HoyGERD (gastroesophageal reflux disease) K21.9BParkview [facility] [facility] [place] [address]/05/2024Doug HoyHypoglycemia E16.2BParkview [facility]ueblo [facility] Hospital[address] [facility] [place] [address]/08/2024Doug Hoy GERD (gastroesophageal reflux disease) K21.9BParkview [facility]ueblo [facility] Hospital[address] [place] [address]/08/2024Doug HoyBColor[facility] [place] [address]/Doug HoyPartial intestinal obstruction, unspecified as to cause K56.600Bu[facility] [place] [address]/Doug HoPark[facility] [place] [address]/ Brandyn [facility] [facility] [address] 04/04/2024Doug HoyPartial intestinal obstruction, unspecified as to cause K56.600[facility] [facility] [place] [address]/Doug HoyPartial intestinal obstruction, unspecified as to cause K56.600BV[facility] [facility] [place] [address]/Doug HoyGERD (gastroesophageal reflux disease) K21.9BParkview [facility]ueblo [facility] Hospital[address] [facility] [place] [address]/ Brandyn [facility] [facility] [place] [address]/Doug [facility] [facility] [place] [address]/05/2024Doug [facility] [facility] [place] [address]/06/2024Doug [facility] [facility] [place] [address]/08/2024Doug HoyGERD (gastroesophageal reflux disease) K21.9BV[facility] [facility] [place] [address]/11/2024Doug HoyGERD (gastroesophageal reflux disease) K21.9BParkview [facility]blo [facility] Hospital[address] [facility] [place] [address]/01/2025Doug HoPark[facility] [place] [address]/Doug HoyPartial intestinal obstruction, unspecified as to cause K56.600[facility] [facility] [place] [address]/Doug HoyPartial intestinal obstruction, unspecified as to cause K56.600[facility] Bdeul[address]sfen[address] [place] [address]/Doug [facility] [address] [place] [address]/Doug HoyPartial intestinal obstruction, unspecified as to cause K56.600BVH [facility] [facility] [place] [address]/Doug [facility] [facility] [place] [address]/Doug [facility] [facility] [place] [address]/ Brandyn HoyGERD (gastroesophageal reflux disease) K21.9BParkview [facility] Hospital[address] [facility] [place] [address]/05/2024Doug [facility] [facility] [place] [address]/ Brandyn HoyGERD (gastroesophageal reflux disease) K21.9BParkview [facility] Hospital[address] [facility] [place] [address]/4Doug [facility] [facility] [place] [address]/ Brandyn HoyBColor[facility] [facility] [place] [address] 4Doug [facility] [facility] [place] [address]/07/2024Doug HoyGERD (gastroesophageal reflux disease) K21.9BParkview [facility] [facility] [place] [address]/ Brandyn HoyGERD (gastroesophageal reflux disease) K21.9BColor[facility]12[address] [facility] [place] [address]/4Doug HoyGERD (gastroesophageal reflux disease) K21.9BParkview [facility] [place] [address]/oug [facility] [place] [address]g [facility] [place] [address] Brandyn [facility] [place] [address] 02/04/2024oug [facility] [place] [address]oug HoyPartial intestinal obstruction, unspecified as to cause K56.600[facility] [place] [address]oug HoyGERD (gastroesophageal reflux disease) K21.9BParkview [facility] [place] [address] Brandyn [facility] [place] [address]oug [facility] [place] [address]oug HoyAnxiety F41.9BParkview [facility] [place] [address]oug [facility] [place] [address] Brandyn [facility] [place] [address]ouBoston [facility] [place] [address]/oug [facility] [place] [address]/4Doug HoPark[facility] [place] [facility] [place] [address]/oug [facility] [facility] [place] [address]/ Brandyn HoyPartial intestinal obstruction, unspecified as to cause K56.600BV[facility] [place] [facility] [place] [address]/ Brandyn HoyBVUchealth [facility]lands [facility] Hospital[address] [place] [place] [address] 12/20/2023oug [facility] [place] [place] [address]/oug [facility] [facility] [place] [address]/oug HoyTestosterone deficiency E29.1BParkview [facility] [facility] [place] [address]/ Brandyn HoyGERD (gastroesophageal reflux disease) K21.9 ; Severe protein-calorie malnutrition E43 ; Hypothyroidism E03.9 and Partial intestinal obstruction, unspecified as to cause K56.600Bu[facility] [facility] [place] [address]/Doug HoyHypoglycemia E16.2BParkview [facility] [facility] [place] [address]/06/2024Doug Hoy Hypoglycemia E16.2BParkview [facility] Hospital[address] [facility] [place] [address]/Doug HoyGERD (gastroesophageal reflux disease) K21.9 ; Severe protein-calorie malnutrition E43 ; PEG (percutaneous endoscopic gastrostomy) status Z93.1 and Acquired hypothyroidism E03.9BParkview [facility] Hospital[address] [facility] [place] [address]/oug Hoy GERD (gastroesophageal reflux disease) K21.9 ; Hypothyroidism E03.9 ; Anxiety F41.9 and IBS (irritable bowel syndrome) K58.9BParkview [facility] [address] [facility] [place] [address]/05/2024Doug HoyGERD (gastroesophageal reflux disease) K21.9 and Hypoglycemia E16.2BParkview [facility]ueblo [facility] Hospital[address] [place] [address]/Doug HoyCAD (coronary artery disease) I25.10 and Moderate malnutrition E44.0[place] [address] [place] [address]/10/2024Doug Hoy Hypoglycemia E16.2 and IBS (irritable bowel syndrome) K58.9BJack Ville [address] [place] [address]/09/2024Doug Hoy Gram negative sepsis A41.50Bu[address] [place] [address]/Doug HoySepsis A41.9B[address] [place] [address]/Doug HoyGERD (gastroesophageal reflux disease) K21.9 ; IBS (irritable bowel syndrome) K58.9 and Severe protein-calorie malnutrition E43 Assessments Encounter Date Diagnosis (ICD Code) Assessment Notes Treatment Notes Treatment Clinical Notes Section Notes 11/14/2024 CAD (coronary artery disease) (I CD-10 - I25.10) 11/14/2024Moderate malnutrition (ICD-10 - E44.0)skipping feding tube11/23/2024 Hypoglycemia (ICD-10 - E16.2)11/23/2024IBS (irritable bowel syndrome) (ICD-10 - K58.9)12/23/2023Testosterone deficiency (ICD-10 - E29.1)4Partial intestinal obstruction, unspecified as to cause (ICD-10 - K56.600)01/10/2024GERD (gastroesophageal reflux disease) (ICD-10 - K21.9)4Anxiety (ICD-10 - F41.9)01/26/2024GERD (gastroesophageal reflux disease) (ICD-10 - K21.9) 02/04/2024artial intestinal obstruction, unspecified as to cause (ICD-10 - K56.600)02/07/2024GERD (gastroesophageal reflux disease) (ICD-10 - K21.9) 02/21/2024GERD (gastroesophageal reflux disease) (ICD-10 - K21.9)03/03/2024GERD (gastroesophageal reflux disease) (ICD-10 - K21.9)03/06/2024Partial intestinal obstruction, unspecified as to cause (ICD-10 - K56.600)03/13/2024GERD (gastroesophageal reflux disease) (ICD-10 - K21.9)03/24/2024GERD (gastroesophageal reflux disease) (ICD-10 - K21.9)03/27/2024GERD (gastroesophageal reflux disease) (ICD-10 - K21.9)2024Partial intestinal obstruction, unspecified as to cause (ICD-10 - K56.600)04/04/2024Partial intestinal obstruction, unspecified as to cause (ICD-10 - K56.600)04/04/2024 Partial intestinal obstruction, unspecified as to cause (ICD-10 - K56.600) 04/06/2024Partial intestinal obstruction, unspecified as to cause (ICD-10 - K56.600)04/07/2024GERD (gastroesophageal reflux disease) (ICD-10 - K21.9) 04/18/2024Hypoglycemia (ICD-10 - E16.2)04/21/2024GERD (gastroesophageal reflux disease) (ICD-10 - K21.9)04/27/2024Partial intestinal obstruction, unspecified as to cause (ICD-10 - K56.600)05/04/2024GERD (gastroesophageal reflux disease) (ICD-10 - K21.9)05/17/2024GERD (gastroesophageal reflux disease) (ICD-10 - K21.9)05/26/2024Partial intestinal obstruction, unspecified as to cause (ICD-10 - K56.600)05/30/2024GERD (gastroesophageal reflux disease) (ICD-10 - K21.9) 06/12/2024GERD (gastroesophageal reflux disease) (ICD-10 - K21.9)06/23/2024 Partial intestinal obstruction, unspecified as to cause (ICD-10 - K56.600) 01/03/2024GERD (gastroesophageal reflux disease) (ICD-10 - K21.9)01/03/2024 Severe protein-calorie malnutrition (ICD-10 - E43)01/10/2024GERD (gastroesophageal reflux disease) (ICD-10 - K21.9)01/10/2024Hypothyroidism (ICD- 10 - E03.9)08/04/2024GERD (gastroesophageal reflux disease) (ICD-10 - K21.9) 08/09/2024Elevated white blood cell count (ICD-10 - D72.829)08/15/2024Partial intestinal obstruction, unspecified as to cause (ICD-10 - K56.600)08/17/2024GERD (gastroesophageal reflux disease) (ICD-10 - K21.9)08/31/2024GERD (gastroesophageal reflux disease) (ICD-10 - K21.9)09/04/2024GERD (gastroesophageal reflux disease) (ICD-10 - K21.9)09/15/2024GERD (gastroesophageal reflux disease) (ICD-10 - K21.9)09/18/2024Partial intestinal obstruction, unspecified as to cause (ICD-10 - K56.600)09/29/2024GERD (gastroesophageal reflux disease) (ICD-10 - K21.9)10/03/2024IBS (irritable bowel syndrome) (ICD-10 - K58.9)10/13/2024GERD (gastroesophageal reflux disease) (ICD-10 - K21.9)10/17/2024IBS (irritable bowel syndrome) (ICD-10 - K58.9) 10/24/2024Sepsis (ICD-10 - A41.9)10/27/2024GERD (gastroesophageal reflux disease) (ICD-10 - K21.9)11/27/2024GERD (gastroesophageal reflux disease) (ICD- 10 - K21.9)12/05/2024GERD (gastroesophageal reflux disease) (ICD-10 - K21.9) 12/05/2024IBS (irritable bowel syndrome) (ICD-10 - K58.9)03/21/2024GERD (gastroesophageal reflux disease) (ICD-10 - K21.9)03/21/2024Hypoglycemia (ICD-10 - E16.2)04/10/2024Hypoglycemia (ICD-10 - E16.2)04/19/2024Hypoglycemia (ICD-10 - E16.2)08/07/2024GERD (gastroesophageal reflux disease) (ICD-10 - K21.9) 08/07/2024Severe protein-calorie malnutrition (ICD-10 - E43)08/22/2024Gram negative sepsis (ICD-10 - A41.50)09/11/2024Sepsis (ICD-10 - A41.9)10/03/2024GERD (gastroesophageal reflux disease) (ICD-10 - K21.9)10/03/2024IBS (irritable bowel syndrome) (ICD-10 - K58.9)07/07/2024GERD (gastroesophageal reflux disease) (ICD-10 - K21.9)07/21/2024Partial intestinal obstruction, unspecified as to cause (ICD-10 - K56.600)07/21/2024GERD (gastroesophageal reflux disease) (ICD-10 - K21.9)10/03/2024Severe protein-calorie malnutrition (ICD-10 - E43)08/07/2024 PEG (percutaneous endoscopic gastrostomy) status (ICD-10 - Z93.1)01/10/2024 Anxiety (ICD-10 - F41.9)01/03/2024Hypothyroidism (ICD-10 - E03.9)06/23/2024GERD (gastroesophageal reflux disease) (ICD-10 - K21.9)01/10/2024IBS (irritable bowel syndrome) (ICD-10 - K58.9)08/07/2024quired hypothyroidism (ICD-10 - E03.9) 01/03/2024artial intestinal obstruction, unspecified as to cause (ICD-10 [...] End Date [employer] [place] [employer] [address] [address] [place] [address] [id number] Brent Garcia - patient is the insured Medications Administered Medication Instructions Date of Administration Dosage Notes Ceftriaxone 1 gram g1 gramDexamethasone, 4mg/mL2 mg12 Medical (General) History Medical History History ICD Code IBS (irritable bowel syndrome) K58.9 Anxiety F41.9 Asthma J45.909 GERD (gastroesophageal reflux disease) K 21.9 Migraine G43.909 Hypothyroidism E03.9 Surgical History Surgery Date(Month/Year) DELIVERYx3 Gastric /2022Hematoma [id number] Ohbmddzdezl0148T Tube [id number] MALS Sqwevbj90/2024CHOLECYSTECTOMYAPPENDECTOMYHospitalization History Reason Date(Month/Year) Chest Pain 11/2024 Heart Attack- [facility] 10/2024 [place]/ Bacteremia 09/2024 Sepsis 08/2024 Hypoglycemia/ Bowel Obstruction 02/07 [facility] [place] Hypoglycemia 01/08 [facility]- malnutrition, DM 06[facility]2023 [facility] [place]
--- OUTSIDE RECORDS SUMMARY | 2024-12-06 12:13 | XMS_ITS | Encounter Summary ---
Author Organization [facility] Address [address], [address] [place] [address] Care Team Providers [employer] Name Role Phone Thomas Alas MD Primary Care Provider [phone] Encounter Details DateTypeDepartmentCare Team (Latest Contact Info)Nyidgzwodis24/09/2025Travel Social History Tobacco UseTypesPacks/DayYears UsedDateSmoking Tobacco: NeverSmokeless [...] Safety Domain Source: IP Abuse ScreeningAnswerDate RecordedPhysical wnjjkHhugfq70/09/2025 Verbal sjfneQbypdb05/09/2025Emotional lksofCqeark36/09/2025Financial abuseDenies 11/23/2024Sexual gcjsdXgjhbk20/09/2025CommentsNoSex and Gender InformationValueDate RecordedSex Assigned at BirthNot on fileLegal SexFemale 04/12/2013 2:41 PM ESTGender IdentityNot on fileSexual OrientationNot on file documented as of this encounter Plan of Treatment Not on file documented as of this encounter Visit Diagnoses Not on filedocumented in this encounter Care Teams Team MemberRelationshipSpecialtyStart DateEnd Date Thomas Alas MD [address] [place] [address] PCP - GeneralFamily Medicine11/08/24documented as of this encounter
--- OUTSIDE RECORDS SUMMARY | 2024-12-06 12:13 | XMS_ITS ---
Author Organization [facility] Address [address] [place] [address] Care Team Providers Care National Flatbed Truck Driver Name Role Phone Thomas Alas MD Primary Care Provider [phone] Active Problems ProblemNoted DateDiagnosed DateAbnormal thyroid blood test12/05/2024llergic avqznfelgcxjqp96/21/0101Trzqpgaa34/21/2025 Overview (12/05/2024): Problem List clean-up per request of Phys. EHR Cmte Edema12/05/20241014Arxfzerressh81/21/4805Nwekvffntqi79/21/2025Otitis media of left ear12/05/2024Postgastric surgery byqmdhxz86/21/2619Aeqjgrjch54/21/2025 Overview (12/05/2024): Problem List clean-up per request of Phys. EHR Cmte Common bile duct bwvovnbhdn38/02/2025 Assessment & Plan (11/16/2024 2:13 AM EDT): CT chest/abd/pelvis noted CBD dilation and apperance of complex inflammatory changes. Patient has required multiple doses of opiates and antiemetics to control symptoms. Request to transfer to the [facility] where much of her advanced care has been provided with Specific concern that she may need ERCP/advanced endoscopy to further evaluation Pain management GI consult Disorder of endocrine ygnfbp3311/09/2024Lumbar afhimgoqghlev92/25/2025Migraine 11/09/2024Severe protein-calorie malnutrition ([place]: less than 60% of standard weight)11/09/2024Pseudoaneurysm of right femoral ihfkcn9611/09/2024 Assessment & Plan (11/12/2024 12:39 PM EDT): [...] pseudoaneurysm 11/02 -stable - follow Hgb Myocardial liprta2511/09/2024 Assessment & Plan (11/12/2024 12:39 PM EDT): [...] need to uptitrate verapamil if BP allows Zmsquskv14/18/2025Chest pain10/30/2024 Assessment & Plan (11/16/2024 2:13 AM EDT): [...] electrolytes -Cardiology consultation Type 2 diabetes mellitus without complication, without long-term current use of kotwwvg9310/30/2024 Assessment & Plan (11/12/2024 12:39 PM EDT): [...] at home, will begin ISS, ACHS Primary dggblagvxihl12/15/2025Other kypwqjaigfbljm72/15/5854Krdgiu49/15/2025 Assessment & Plan (11/02/2024 1:29 PM EDT): - Continue albuterol inhaler as needed Assessment & Plan (11/01/2024 7:33 AM EDT): - Continue albuterol inhaler as needed Assessment & Plan (10/31/2024 7:18 AM EDT): - Continue albuterol inhaler as needed Assessment & Plan (10/30/2024 9:00 PM EDT): - Continue albuterol inhaler as needed IBS (irritable bowel syndrome)10/30/2024 Assessment & Plan (11/12/2024 12:39 PM EDT): [...] Stable, last BM yesterday Median arcuate ligament emqhugaj25/15/2025 Assessment & Plan (11/12/2024 12:39 PM EDT): [...] and then MALS release S/P laparoscopic sleeve giqzhtznzud70/15/2025 Assessment & Plan (11/12/2024 12:39 PM EDT): [...] 9:00 PM EDT): - Stable Protein calorie pohvvzkkfaqf50/15/2025 Assessment & Plan (11/02/2024 1:29 PM EDT): [...] -Clinical dietitian consult- Prolonged Q-T interval on ECG10/30/2024 Assessment & Plan (11/02/2024 1:29 PM EDT): [...] EKG in a.m. NSTEMI (non-ST elevated myocardial infarction)10/30/2024 Assessment & Plan (11/02/2024 1:29 PM EDT): [...] pain today patient brought urgently back to Trial Consultant Assessment & Plan (11/01/2024 11:57 AM EDT): [...] -Pending TTE, cath Spontaneous dissection of coronary zvgkqi4010/30/2024 Assessment & Plan (11/12/2024 12:39 PM EDT): [...] pain today patient brought urgently back to Trial Consultant Feeding iivpitvdhhmw88/09/2025roken central line09/21/2024Long term (current) use of opiate /07/2025Poor response to enteral sdiahmzln03/28/2025 Sepsis due to Drgixmzskh16/04/2025 Assessment & Plan (08/19/2024 1:03 PM EDT): - source is likely the cellulitis around the J-tube status post J-tube removal. - CT scan from [facility] showing no abscess. - Infectious disease recommendations appreciated, continue with ceftriaxone. - Repeat blood cultures on 08/16: NGTD - central line in place, does not look like infected, continue monitoring, central line care. Assessment & Plan (08/18/2024 12:20 PM EDT): - source is likely the cellulitis around the J-tube status post J-tube removal. - CT scan from [facility] showing no abscess. - Infectious disease recommendations appreciated, continue with ceftriaxone. - Repeat blood cultures on 08/16: NGTD - central line in place, does not look like infected, continue monitoring, central line care. Sepsis due to Xyursicwsasn29/04/2025 Assessment & Plan (08/19/2024 1:03 PM EDT): - source is likely the cellulitis around the J-tube status post J-tube removal. - CT scan from [facility] showing no abscess. - Infectious disease recommendations appreciated, continue with ceftriaxone. - Repeat blood cultures on 08/16: NGTD - central line in place, does not look like infected, continue monitoring, central line care. Assessment & Plan (08/18/2024 12:20 PM EDT): - source is likely the cellulitis around the J-tube status post J-tube removal. - CT scan from [facility] showing no abscess. - Infectious disease recommendations appreciated, continue with ceftriaxone. - Repeat blood cultures on 08/16: NGTD - central line in place, does not look like infected, continue monitoring, central line care. Nycxdsdcxqmxz09/04/2025 Assessment & Plan (11/12/2024 12:39 PM EDT): [...] admission. - As needed antiemetics Chronic pain /04/2025 Assessment & Plan (11/12/2024 12:39 PM EDT): [...] and scheduled tramadol. Continue with as needed [place]. Assessment & Plan (08/18/2024 12:20 PM EDT): - continue with home meds including fentanyl patch and scheduled tramadol. Continue with as needed [place]. 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 Assessment & Plan (08/18/2024 12:20 PM EDT): - status postresection. History of adrenal wxdhyzhnxcwww99/04/2025 Assessment & Plan (11/12/2024 12:39 PM EDT): [...] PM EDT): - continue with dexamethasone Acquired qrttnvlrydgjvx97/04/2025 Assessment & Plan (11/16/2024 2:13 AM EDT): [...] 12:20 PM EDT): - continue with levothyroxine. Vcrtmhubnkgiwx16/03/2025 Assessment & Plan (11/12/2024 12:39 PM EDT): [...] well as other thyroid function testing Morbid tssevdr7708/17/2024 Assessment & Plan (08/19/2024 1:03 PM EDT): - Status post gastric bypass complicated by gastroparesis. 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 Assessment & Plan (08/17/2024 1:27 AM EDT): -Weight loss by virtue of diet and exercise GERD (gastroesophageal reflux disease)08/17/2024 Assessment & Plan (11/16/2024 2:13 AM EDT): [...] daily DVT prophylaxis is VTE protocols per [facility] GI prophy Protonix Monitor labs) Obtain blood cultures Comments IV Vanco and cefepime Consult infectious diseases Early ambulation I discussed the plan of care with the patient and she is in agreement. Qsmggnrerz88/02/2025 Assessment & Plan (08/17/2024 1:27 AM EDT): -Unclear blood cultures - Commence patient on Vanco/cefepime - Monitor patient blood cultures - Also evaluate lab tests and correct abnormalities - Consult infectious disease - Obtain 2D echocardiogram History of laparoscopic hmzxgymhosrmiew82/25/2025hronic, continuous use of bizntuc4204/11/2024Starvation vaghgktofawx47/25/2025Intestinal ugfbcsbgb41/07/2024 Screening for diabetes mellitus (DM)01/22/2024History of small bowel obstruction 01/21/2024Impaired intestinal /18/2035Sftef68/25/2024urrent use of steroid bcqoygixyf40/21/2024ommunity acquired pneumonia of left lower lobe of lung08/07/2023Idiopathic /21/2024spiration pneumonia of left lower lobe due to vomit08/04/2023Syncope and hwxzqkdy84/19/2024Heart lkikenk9806/29/2023 Acute renal failure superimposed on chronic kidney kktznyq6306/29/2023Hypokalemia 06/29/2023ecreased oral mwzdzk9305/25/20234862Bfkgvxujfhxnqt91/19/2024nxiety and geycenksnk73/23/2023Feeding slvmnza2312/07/2022Therapeutic drug monitoring 12/07/20229675Vpwzixctvla80/12/2023ilious vomiting with vzwkbp9210/28/2022Intractable vomiting with bwqmdm5910/25/20228148Qqvtqa39/20/2023 Overview (11/09/2024): Takes Pro FE daily. Last Assessment & Plan: Assessment: iron infusions ~1 month ago Acute pain of right knee08/04/2022all stone08/04/2022Internal derangement of right apzrrwbb60/20/2023Mixed incontinence urge and bkqrmp7608/04/2022Other specified noninflammatory disorders of cybjcz7208/04/2022atellofemoral pain syndrome of right knee08/04/2022Right flank pain08/04/2022Vaginal pain08/04/2022 Rash and nonspecific skin jwczqpxy43/07/2023History of Isabel-en-Y gastric bypass 06/24/2022ipolar qoigyavt35/07/2023astric tisggl9901/29/2022Iron deficiency lyzskp9111/01/2021Ventral hernia without obstruction or ulaxhlxb44/27/2022 Overview (12/05/2024): Last Assessment & Plan: Assessment: will have surgery Calculus of arcjfi2403/10/2021bnormal finding on imaging of liver04/07/2020 Moderate recurrent major ijlhhonkgr11/18/2020Situational ykcrfl8501/03/2020Panic disorder without klhffmygcmv83/06/2020Trauma and stressor-related disorder 11/21/2019Duodenogastric reflux of bile11/16/20192797Svsbkw52/10/2020Preoperative knucndqdbwj91/10/2020Regurgitation of food09/25/2019Laryngopharyngeal reflux 10/07/2018Obstructive sleep apnea pawpobhc71/23/2019 Overview (12/05/2024): wears mask every night Ieagrvvgwsftjd12/20/2019Reactive mvhllmplryxa01/19/2019Chronic fatigue syndrome 09/19/2018Iron annqhyxfwu72/05/2019Vitamin D qcfjfqqafe30/05/2019Insomnia 09/15/2018Maltracking of right pflcjwu3606/27/2018Chondromalacia of patella, right 05/30/2018Arthritis of right knee05/30/201839 weeks gestation of 11/23/2016PCOS (polycystic ovarian syndrome)10/02/2013 Overview (11/09/2024): Last Assessment & Plan: Assessment: monitored per PCP Current Treatment and Therapy Plans No current plan information found. Past Treatment and Therapy Plans No past plan information found. Lifetime Dose Tracking * ChemicalLifetime DoseAutomatic EntryManual EntryFluoro Time1,946.2 minutes0 minutes1,946.2 minutesAir Kerma1,280 mGy0 mGy1,280 mGy
--- OUTSIDE RECORDS SUMMARY | 2024-12-06 12:13 | XMS_ITS | Clinical Summary ---
Author Organization [employer] Address [id number] [address] [place] [address] Care Team Providers Care Attendant Self Service Store Name Role Phone No Pcp, No Pcp Primary Care Provider Unavailabl e Allergies Active AllergyReactionsCriticalityNoted RocsPizrytvyCjyqrsz90/18/2018 Medications MedicationSigDispense QuantityRefillsLast FilledStart DateEnd DateStatus levothyroxine (SYNTHROID, LEVOTHROID) 75 MCG tablet Take 100 mcg by mouth daily. Active liothyronine (CYTOMEL) 5 MCG tablet Take 5 mcg by mouth daily.Active 23/iron ps/folic acid (PROFE FORTE ORAL) Take 1 tablet by mouth daily.Active citalopram (CeleXA) 20 mg tablet Take 20 mg by mouth daily.Active magnesium gluconate (MAGONATE) 500 mg tablet tablet Take 500 mg by mouth daily.Active ferrous sulfate 325 (65 FE) mg tablet Take 325 mg by mouth daily with breakfast.Active lancets (ONETOUCH DELICA LANCETS) 33 gauge [facility] Indications:Abnormal glucose tolerance affecting , antepartumOne touch Delica lancets; use as directed to test 4 times daily 100 each Active blood sugar diagnostic strip Indications:Abnormal glucose tolerance affecting , antepartumOne touch Verio strips for One Touch Verio meter; test 4 times a day 150 strip Active metFORMIN (GLUCOPHAGE) 1000 mg tablet Indications:Gestational diabetes mellitus (GDM) controlled on oral hypoglycemic drug, antepartumTake 1 tablet (1,000 mg total) by mouth 2 (two) times a day with meals. 60 tablet 6002/27/2019Active Active Problems ProblemNoted DateDiagnosed DateHypothyroidism affecting in second agrquqojx67/08/2018 Family History Medical HistoryRelationNameCommentsThyroid diseaseFatherDiabetesMaternal GrandfatherHypertensionMaternal GrandfatherThyroid diseaseMaternal Grandfather HypertensionMaternal GrandmotherDiabetesMotherHypertensionMotherHypertension Paternal GrandfatherDiabetesPaternal GrandmotherHypertensionPaternal Grandmother Thyroid diseasePaternal GrandmotherRelationNameStatusCommentsFatherMaternal GrandfatherMaternal GrandmotherDeceasedMotherPaternal GrandfatherPaternal GrandmotherDeceased Social History Tobacco UseTypesPacks/DayYears UsedDateSmoking Tobacco: NeverSmokeless Tobacco: NeverAlcohol UseStandard Drinks/WeekCommentsNo0 (1 standard drink = 0.6 oz pure alcohol)ChildcareAnswerDate CwifnenlGzhhxxrzqUiiqihd93/09/2019EmploymentAnswer Date JsxbeelxGhafvpfioaPupbnwh31/09/2019Purpose - LifeAnswerDate RecordedPurpose and direction in fvihVnpkqdl31/11/2021CommentsNoSex and Gender InformationValueDate RecordedSex Assigned at BirthNot on fileLegal SexFemale 09/20/2014 11:41 AM EDTGender IdentityNot on fileSexual OrientationNot on file Last Filed Vital Signs Vital SignReadingTime TakenCommentsBlood Tcmrltif169/71003/15/2019 9:28 AM EST Ecajg771703/15/2019 9:28 AM ESTTemperature--Respiratory Rate--Oxygen Saturation-- Inhaled Oxygen Concentration--Zhldag172 kg (262 lb 5.6 oz)03/15/2019 9:28 AM EST Qrnlts044.2 cm (5' 7 )01/16/2019 8:31 AM ESTBody Mass Index41.0901/16/2019 8:31 AM EST Plan of Treatment Health MaintenanceDue DateLast DoneCommentsDepression Rgvlofeon99/17/2002Tobacco Kwscapubo74/17/2002Adult BMI Jgdjchaut10/17/2008DTaP,Tdap and Td Vaccines (1 - Tdap)2008Pap Smear2010Influenza Iargjse7310/16/2024 Medical Devices Not on file Insurance Care Teams Team MemberRelationshipSpecialtyStart DateEnd Date No Pcp, No Pcp [place] [id number] [facility]
--- OUTSIDE RECORDS SUMMARY | 2024-12-06 12:13 | XMS_ITS | Patient Health Record ---
Author Organization [facility] es Address [address] [place] [address] Care Team Providers Care Composing Machine Operator Name Role Phone Ashley Bryson Primary Care Provider Christina Dominguez Unavailable Unavailable Reason For Referral No Information Encounters Encounter Location Date Provider Diagnosis [facility] [address] [place] [address] 04/25/2024 Ashley Bryson Encounter for dental examination [...] cleaning with abnormal findings (ICD-10 - Z01.21) 04/25/2024Other dental procedure status (ICD-10 - Z98.818)04/25/2024Disturbances in tooth eruption (ICD-10 - K00.6)04/25/2024Dental caries on pit and fissure surface penetrating into dentin (ICD-10 - K02.52)04/25/2024racked tooth (ICD-10 - K03.81) Plan Of Treatment No Information Insurance Providers Payer Name Payer Address Payer Phone Subscriber Number Group Number Insured Name Patient Relationship to Insured Coverage Start Date Coverage End Date Dental [employer] DQ [address] [address] [place] [phone] [id number], BESSIESelf - patient is the ayzwaow45/11/2025Dental Wrap [facility] HumanaPO [address] [place] [id number], BESSIE Self - patient is the [id number] 2024
--- OUTSIDE RECORDS SUMMARY | 2024-12-06 12:14 | XMS_ITS | Encounter Summary ---
Author Organization [facility] Address [address], [address] [place] [address] Care Team Providers Care Freight Claim Investigator Name Role Phone Thomas Alas MD Primary Care Provider [phone] Encounter Details DateTypeDepartmentCare Team (Latest Contact Info)Pqzpdyldqwz83/18/2025Travel Social History Tobacco UseTypesPacks/DayYears UsedDateSmoking Tobacco: NeverSmokeless [...] Safety Domain Source: IP Abuse ScreeningAnswerDate RecordedPhysical vyaiwLgndwp77/18/2025 Verbal cooxfCqgwde51/18/2025Emotional obruzPpmmvm24/18/2025Financial abuseDenies 12/02/2024Sexual hnzdnJraluj10/18/2025CommentsNoSex and Gender InformationValueDate RecordedSex Assigned at BirthNot on fileLegal SexFemale 04/12/2013 2:41 PM ESTGender IdentityNot on fileSexual OrientationNot on file documented as of this encounter Functional Status documented as of this encounter Plan of Treatment Not on file documented as of this encounter Visit Diagnoses Not on filedocumented in this encounter Care Teams Team MemberRelationshipSpecialtyStart DateEnd Date Thomas Alas MD [address] [place] [address] PCP - GeneralFamily Medicine11/08/24documented as of this encounter
--- OUTSIDE RECORDS SUMMARY | 2024-12-06 12:14 | XMS_ITS | Clinical Summary ---
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 Redness and itchy. Other Reaction(s): Other (See Comments) Medications MedicationSigDispense QuantityRefillsLast FilledStart DateEnd DateStatus Docusate Sodium (DSS) 100 MG capsule Take 100 mg by mouth in the morning and 100 mg at noon and 100 mg in the evening.06/23/2022ctive escitalopram (Lexapro) 10 MG tablet 1 (one) time each day at the same time.05/05/2022ctive fluticasone (Flonase) 50 MCG/ACT nasal spray Administer 2 sprays into each nostril in the morning.08/22/2021ctive Fluticasone-Salmeterol 100-50 MCG/ACT aerosol powder Inhale 1 puff in the morning and 1 puff before bedtime.08/20/2021ctive Simbol MaterialsTouch Ultra test strip USE TO TEST BLOOD SUGAR TWICE DAILY08/17/2021ctive hydrOXYzine HCl (Atarax) 25 MG tablet TAKE 1 TABLET BY MOUTH TWICE A DAY NEEDED FOR ANXIETY/NHYCBODA70/24/2023 Active Lancets (OneTouch Delica Plus Cfjtuq19P) misc USE TO TEST BLOOD SUGAR TWICE DAILY08/17/2021ctive liothyronine (Cytomel) 5 MCG tablet liothyronine 5 mcg xaftzs8605/21/2022ctive mirtazapine (Remeron) 15 MG tablet Take 15 mg by mouth at bedtime.06/14/2022ctive Multiple Vitamin (Multi-Vitamin) tablet Take 1 tablet by mouth.Active omeprazole (PriLOSEC) [address] capsule Take 40 mg by mouth.06/23/2022ctive ondansetron ODT (Zofran-ODT) 4 MG disintegrating tablet DISSOLVE ONE TABLET ON TONGUE EVERY 4 HOURS NEEDEDActive promethazine (Phenergan) 12.5 MG tablet Take 12.5 mg by mouth.06/10/2022ctive ALBUTEROL IN Inhale.Active acetaminophen (Tylenol) 500 MG tablet Take 1,000 mg by mouth every 6 (six) hours if needed.06/23/2022ctive topiramate (Topamax) 100 MG tablet Take by mouth.07/29/2022ctive levothyroxine (Synthroid, Levoxyl) 125 MCG tablet Take 125 mcg by mouth in the morning. Take before meals.Active PREDNISONE PO Take by mouthActive Active Problems ProblemNoted DateDiagnosed DatePatellofemoral pain syndrome of right knee 08/04/2022COS (polycystic ovarian syndrome)08/04/2022 Overview (08/04/2022): Last Assessment & Plan: Assessment: monitored per PCP Patellofemoral deyynsltg64/20/2023Other specified noninflammatory disorders of wgevkd5608/04/2022Mixed incontinence urge and ufbofo8608/04/2022Mixed anxiety and depressive sbewfslt86/20/2023Internal derangement of right lhahuech09/20/2023 GERD (gastroesophageal reflux disease)08/04/2022 Overview (08/04/2022): Last Assessment & Plan: Assessment: takes meds,stable Gall stone08/04/20222312Tutfgqgo53/20/8825Kkuwqkavy06/20/2023hronic constipation 08/04/20226443Yixcsw99/20/2023 Overview (08/04/2022): Takes Pro FE daily. Last Assessment & Plan: Assessment: iron infusions ~1 month ago Acute pain of right knee08/04/2022Vaginal pain08/04/2022Right flank pain 08/04/2022Rash and nonspecific skin ccvravav96/07/2023History of sleep apnea 06/24/2022History of Isabel-en-Y gastric bmrqhb9606/24/2022ipolar disorder 06/21/2022astric ayyswg0001/29/2022ONV (postoperative nausea and vomiting) 01/29/2022Ventral hernia without obstruction or wmycyncd79/27/2022 Overview (08/04/2022): Last Assessment & Plan: Assessment: will have surgery Calculus of zhmabk5503/10/2021History of sleeve ovosueiptqh34/22/2021 Overview (08/04/2022): Last Assessment & Plan: Assessment: 08/2020, down 50 lbs Churud8108/21/2020 Overview (08/04/2022): Last Assessment & Plan: Assessment: Advair BID and Albuterol daily Unilateral primary osteoarthritis, right knee04/26/2020bnormal finding on imaging of liver04/07/2020evere protein-calorie malnutrition (HHS-HCC) 1Right upper quadrant abdominal pain01/31/2020Situational stress 01/03/2020Panic disorder without waaitcikbat26/06/2020Back pain10/15/2019Malaise and wzgxwyu1610/06/2019Chronic bilateral low back pain without /21/2020 Xmkodsv0210/06/20192602Szjyqww65/10/2020 Overview (08/04/2022): Last Assessment & Plan: Assessment: BMI 31.8 Benign essential HTN09/25/2019 Overview (08/04/2022): Last Assessment & Plan: Assessment: not on meds,monitored per PCP BP 141/70 pulse 62 Regurgitation of food09/25/2019Preoperative /10/2020Nausea 09/25/2019Obstructive sleep apnea wcjofhxz21/23/2019 Overview (08/04/2022): wears mask every night Last Assessment & Plan: Assessment: uses CPAP nightly Laryngopharyngeal yuuoyr4810/07/2018Adrenal zehtvmrofabl50/20/2019Insulin bbyvwketro01/19/2019Reactive rdamfrbjfxeu89/19/2019Iron wlcoydklov39/05/2019 Chronic fatigue pixzmcsc45/05/2019Vitamin D ypbxkssomo34/05/2019Insomnia 09/15/2018Maltracking of right kynmtuo2706/27/2018Internal derangement of right knee06/15/2018Osteoarthritis of patellofemoral joint05/30/2018Chondromalacia of patella, right05/30/2018Arthritis of right knee05/30/2018Hypothyroidism affecting in second bslduvmop62/08/2018Hypertensive evnffxty31/30/2018 39 weeks gestation of ([facility])11/23/2016Polycystic dddizll7010/02/2013 Asthma without status qrvipoanqjt25/18/2014Gastric ulcer02/15/2013 Overview (08/04/2022): Last Assessment & Plan: Assessment: had in 2013,moniotred per PCP Family History Medical HistoryRelationNameCommentsNo Known ProblemsDaughter 12Hypertension FatherTom ArtinoThyroid diseaseFatherTom ArtinoCancerMaternal GrandfatherCharles HumesDiabetesMaternal GrandfatherCharles HumesHeart diseaseMaternal Grandfather Cedrick HumesHypertensionMaternal GrandfatherCharles HumesThyroid disease Maternal GrandfatherCharles HumesHypertensionMaternal GrandmotherEileen Efra DiabetesMotherEdna ArtinoHypertensionMotherEdna ArtinoHypertensionPaternal GrandfatherOrlando ArtinoDiabetesPaternal GrandmotherBeatrice ArtinoHeart diseasePaternal GrandmotherBeatrice ArtinoHypertensionPaternal Grandmother Gladys ArtinoThyroid diseasePaternal GrandmotherBeatrice ArtinoDiabetesSibling HypertensionSiblingNo Known ProblemsSonRelationNameStatusCommentsDaughter 1Alive Daughter 2AliveFatherTom ArtinoAliveMaternal GrandfatherCharles HumesMaternal GrandmotherEileen HumesMotherEdna ArtinoAlivePaternal GrandfatherOrlando Artino Paternal GrandmotherBeatrice ArtinoSiblingSonAlive Social History Tobacco UseTypesPacks/DayYears UsedDateSmoking Tobacco: NeverSmokeless Tobacco: Never Tobacco Cessation:Counseling Given: Not Answered Alcohol UseStandard Drinks/WeekCommentsNever0 (1 standard drink = 0.6 oz pure alcohol)Caffeine: 1-2 cups/dayCommentsNoSex and Gender InformationValue Date RecordedSex Assigned at BirthNot on fileLegal CuvSsdwvc12/01/2023 8:33 PM EDTGender IdentityNot on fileSexual OrientationNot on file Last Filed Vital Signs Vital SignReadingTime TakenCommentsBlood Spzycyid692/8009 8:40 AM EDT Pulse--Temperature--Respiratory Rate--Oxygen Saturation--Inhaled Oxygen Concentration--Pznagt88.9 kg (185 lb)12/14/2023 2:11 PM YMLBfmfok809.6 cm (5' 6 )12/14/2023 2:11 PM EDTBody Mass Index29.8612/14/2023 2:11 PM EDT Plan of Treatment Not on file Insurance Care Teams Team MemberRelationshipSpecialtyStart DateEnd Date Thomas Alas MD [address] [place] [address] PCP - GeneralFamily Qhbvvowp99/29/24 Anna Mendez NP [address] [place] [address] Referring Physicianmily Medicine07/23/22
--- OUTSIDE RECORDS SUMMARY | 2024-12-06 12:14 | XMS_ITS | Clinical Summary ---
Author Organization [facility] Address [address] [place] [address] Care Team Providers Care Underwriting Internship Name Role Phone Britt Alas MD Primary Care Provider [phone] Allergies Active AllergyReactionsCriticalityNoted ArxgYimuknvaIndytpwiGpyvQsv16/02/2025 Adhesive Tape-WlohnawblSztxfTstthp87/23/2020 Sensitive to certain adhesive tapes. Redness and itchy. CodeineNausea And YavajdaiEvyxfk94/02/2025Nsaids (Non-Steroidal Anti- Inflammatory Drug)GI drpkgiundkxQvptlc60/02/1369CysfoifbTgkmvms40/14/2024 Medications MedicationSigDispense QuantityRefillsLast FilledStart DateEnd DateStatus liothyronine (Cytomel) 5 mcg tablet Take 5 mcg by mouth in the morning.Active topiramate (Topamax) 100 mg tablet Take 100 mg by mouth two times daily.Active ALBUTEROL INHL Inhale 90 mcg every 6 (six) hours if needed (SOB or wheezing).Active escitalopram (Lexapro) 20 mg tablet Take 20 mg by mouth in the morning.Active levothyroxine (Synthroid, Levoxyl) 75 mcg tablet Take 75 mcg by mouth before breakfast.Active acetaminophen (Tylenol) 325 mg tablet Take 650 mg by mouth every 4 (four) hours if needed for mild pain (1-3 pain score).Active omeprazole (PriLOSEC) [address] capsule Take 40 mg by mouth before breakfast and before evening meal. Do not crush or chew.Active prucalopride 2 mg tablet Take 2 mg by mouth in the morning.Active traZODone (Desyrel) 100 mg tablet Take 100 mg by mouth at bedtime.Active fentaNYL (Duragesic) 25 mcg/hr Place 1 patch on the skin every (third) day.Active hydrocortisone (Cortef) 10 mg tablet Take 10 mg by mouth in the morning.Active hydrOXYzine HCL (Atarax) 25 mg tablet Take 50 mg by mouth if needed at bedtime.Active sucralfate (Carafate) 1 gram tablet Take 1 g by mouth before breakfast, before lunch, before evening meal, and at bedtime.Active traMADol (Ultram) 50 mg tablet Take 50 mg by mouth every 6 (six) hours if needed.Active aspirin 81 mg chewable tablet Indications:Spontaneous dissection of coronary arteryChew 1 tablet (81 mg) with breakfast for 120 doses. 30 tablet 6Active clopidogrel (Plavix) 75 mg tablet Indications:Spontaneous dissection of coronary arteryTake 1 tablet (75 mg) by mouth in the morning for 120 doses. 30 tablet 6Active metoclopramide (Reglan) 10 mg tablet Indications:GastroparesisTake 1 tablet (10 mg) by mouth if needed in the morning and at bedtime (nausea and vomiting). 60 tablet 5Active metoprolol succinate XL (Toprol-XL) 25 mg 24 hr tablet Indications:HematomaTake 1 tablet (25 mg) by mouth in the morning for 92 doses. Do not crush or chew. Do not start before November 08, 2024. 30 tablet 5Active verapamil (Calan) 40 mg tablet Indications:HematomaTake 1 tablet (40 mg) by mouth every 8 (eight) hours for 287 doses. 90 tablet /5Active rosuvastatin (Crestor) 40 mg tablet Indications:HematomaTake 1 tablet (40 mg) by mouth at bedtime for 99 doses. 30 tablet /5Active naloxone (Narcan) 0.4 mg/mL injection Indications:Chronic narcotic useInfuse 1 mL (0.4 mg) into a venous catheter if needed for opioid reversal. 1 mL /5Active ranolazine (Ranexa) 500 mg 12 hr tablet Indications:Chest painTake 1 tablet (500 mg) by mouth two times daily for 189 doses. Do not crush, chew, or split. 60 tablet 501/6Active colchicine 0.6 mg tablet Indications:Chest painTake 0.5 tablets (0.3 mg) by mouth every other day. Do not start before November 14, 2024. 8 tablet 510/5Active fentaNYL (Duragesic) 12 mcg/hr Place 1 patch on the skin every 3rd (third) day. Give with 25 mcg patchActive HYDROcodone-acetaminophen (Peoria) 5-325 mg tablet Take 2 tablets by mouth every 4 (four) hours if needed.Active methocarbamol (Robaxin) 750 mg tablet Take 750 mg by mouth three times daily.Active mirtazapine (Remeron) 45 mg tablet Take 45 mg by mouth at bedtime.Active linaCLOtide (Linzess) 290 mcg capsule Take 290 mcg by mouth before breakfast. Do not crush or chew.11/07/2024 Discontinued(Stop Taking at Discharge) mirtazapine (Remeron) 30 mg tablet Take 45 mg by mouth at bedtime.12/04/2024Discontinued methocarbamol (Robaxin) 500 mg tablet Take 750 mg by mouth four times daily.12/04/2024Discontinued dexAMETHasone (Decadron) 2 mg tablet Take 3 mg by mouth in the morning.11/07/2024Discontinued(Stop Taking at Discharge) ergocalciferol (Vitamin D-2) 1.25 MG (13051 Units) capsule Take 50,000 Units by mouth 1 (one) time per week.11/13/2024Discontinued(Stop Taking at Discharge) fentaNYL (Duragesic) 12 mcg/hr Place 1 patch on the skin every 3rd (third) day. Takes 12 mcg and 25 mcg together every 3 days11/13/2024Discontinued(Stop Taking at Discharge) HYDROcodone-acetaminophen ([place]) 5-325 mg tablet Take 2 tablets by mouth every 4 (four) hours if needed for moderate-severe pain (4-10 pain score).11/13/2024Discontinued(Stop Taking at Discharge) metFORMIN, OSM, (Fortamet) 500 mg 24 hr tablet Take 500 mg by mouth with breakfast and with evening meal. Do not crush, chew, or split.12/04/2024Discontinued prochlorperazine (Compazine) 10 mg tablet Take 10 mg by mouth every 6 (six) hours if needed for nausea or vomiting. 11/07/2024Discontinued(Stop Taking at Discharge) atorvastatin (Lipitor) 80 mg tablet Indications:Spontaneous dissection of coronary arteryTake 1 tablet (80 mg) by mouth at bedtime for 120 doses. 30 tablet Discontinued(Stop Taking at Discharge) metoprolol succinate XL (Toprol-XL) 25 mg 24 hr tablet Indications:Spontaneous dissection of coronary arteryTake 0.5 tablets (12.5 mg) by mouth in the morning for 120 doses. Do not crush or chew. 15 tablet Discontinued(Stop Taking at Discharge) colchicine 0.6 mg tablet Indications:Chest painTake 0.5 tablets (0.3 mg) by mouth every other day for 49 doses. 8 tablet Discontinued cefpodoxime (Vantin) 200 mg tablet Take 1 tablet (200 mg) by mouth two times daily for 7 days. 14 tablet Expired Additional Information Patient not taking.Reported on 12/06/2024 Active Problems ProblemNoted DateDiagnosed DateAbnormal thyroid blood test12/05/2024llergic pwpmyagjdntvvm59/21/8759Sanbkdnz70/21/2025 Overview (12/05/2024): Problem List clean-up per request of Phys. EHR Cmte Edema12/05/20241467Sfpoogwhfala49/21/9328Bqrlwavfisg27/21/2025Otitis media of left ear12/05/2024Postgastric surgery ffepkzhe08/21/2439Wfnqztsbz78/21/2025 Overview (12/05/2024): Problem List clean-up per request of Phys. EHR Cmte Common bile duct yufkstvtnt75/02/2025 Assessment & Plan (11/16/2024 2:13 AM EDT): CT chest/abd/pelvis noted CBD dilation and apperance of complex inflammatory changes. Patient has required multiple doses of opiates and antiemetics to control symptoms. Request to transfer to the [facility] where much of her advanced care has been provided with Specific concern that she may need ERCP/advanced endoscopy to further evaluation Pain management GI consult Disorder of endocrine nxcwwg7411/09/2024Lumbar ptougzyeufmwt77/25/2025Migraine 11/09/2024Severe protein-calorie malnutrition ([place]ter: less than 60% of standard weight)11/09/2024Pseudoaneurysm of right femoral mkjabl3911/09/2024 Assessment & Plan (11/12/2024 12:39 PM EDT): [...] pseudoaneurysm 11/02 -stable - follow Hgb Myocardial jphhex1311/09/2024 Assessment & Plan (11/12/2024 12:39 PM EDT): [...] need to uptitrate verapamil if BP allows Haswsvxc50/18/2025hest pain10/30/2024 Assessment & Plan (11/16/2024 2:13 AM [...] without complication, without long-term current use of xsivypo9810/30/2024 Assessment & Plan (11/12/2024 12:39 PM EDT): [...] Patient currently taking metformin at home -Continue [facility] Assessment & Plan (10/30/2024 9:00 PM EDT): - Patient currently taking metformin at home, will begin ISS, ACHS Primary wiqdxywasncb21/15/2025Other pbzfsrndmixnof85/15/9361Dvppqw23/15/2025 Assessment & Plan (11/02/2024 1:29 PM EDT): [...] Stable, last BM yesterday Median arcuate ligament tkqarosc17/15/2025 Assessment & Plan (11/12/2024 12:39 PM EDT): [...] and then MALS release S/P laparoscopic sleeve wofxkssqmrq30/15/2025 Assessment & Plan (11/12/2024 12:39 PM EDT): [...] 9:00 PM EDT): - Stable Protein calorie mdnutittuysm69/15/2025 Assessment & Plan (11/02/2024 1:29 PM EDT): [...] pain today patient brought urgently back to [facility] Assessment & Plan (11/01/2024 11:57 AM EDT): [...] -Pending TTE, cath Spontaneous dissection of coronary irxqls2710/30/2024 Assessment & Plan (11/12/2024 12:39 PM EDT): [...] medical therapy is recommended - cards consulted [facility] tomorrow to assess for ischemic evaluation Continue [...] pain today patient brought urgently back to [facility] Feeding kneeukjugewd88/09/2025roken central line09/21/2024Long term (current) use of opiate hwzljeaae85/07/2025Poor response to enteral vgprkgvec31/28/2025 Sepsis due to Vuwltpyjpo53/04/2025 Assessment & Plan (08/19/2024 1:03 PM EDT): - source is likely the cellulitis around the J-tube status post J-tube removal. - CT scan from [facility] showing no abscess. - Infectious disease recommendations appreciated, continue with ceftriaxone. - Repeat blood cultures on 08/16: NGTD - central line in place, does not look like infected, continue monitoring, central line care. Assessment & Plan (08/18/2024 12:20 PM EDT): - source is likely the cellulitis around the J-tube status post J-tube removal. - CT scan from [facility] showing no abscess. - Infectious disease recommendations appreciated, continue with ceftriaxone. - Repeat blood cultures on 08/16: NGTD - central line in place, does not look like infected, continue monitoring, central line care. Sepsis due to Qpklvnsnfrnf20/04/2025 Assessment & Plan (08/19/2024 1:03 PM EDT): - source is likely the cellulitis around the J-tube status post J-tube removal. - CT scan from [facility] showing no abscess. - Infectious disease recommendations appreciated, continue with ceftriaxone. - Repeat blood cultures on 08/16: NGTD - central line in place, does not look like infected, continue monitoring, central line care. Assessment & Plan (08/18/2024 12:20 PM EDT): - source is likely the cellulitis around the J-tube status post J-tube removal. - CT scan from [facility] showing no abscess. - Infectious disease recommendations appreciated, continue with ceftriaxone. - Repeat blood cultures on 08/16: NGTD - central line in place, does not look like infected, continue monitoring, central line care. Ufmgffoqjxjhw07/04/2025 Assessment & Plan (11/12/2024 12:39 PM EDT): [...] admission. - As needed antiemetics Chronic pain cdkuutpk64/04/2025 Assessment & Plan (11/12/2024 12:39 PM EDT): [...] and scheduled tramadol. Continue with as needed Peoria. Assessment & Plan (08/18/2024 12:20 PM EDT): - continue with home meds including fentanyl patch and scheduled tramadol. Continue with as needed [place]. 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 Assessment & Plan (08/18/2024 12:20 PM EDT): - status postresection. History of adrenal cwyyebwjqhwob17/04/2025 Assessment & Plan (11/12/2024 12:39 PM EDT): [...] PM EDT): - continue with dexamethasone Acquired lgjxwqjchqeuds26/04/2025 Assessment & Plan (11/16/2024 2:13 AM EDT): [...] 12:20 PM EDT): - continue with levothyroxine. Kylnqjofzhhpuq41/03/2025 Assessment & Plan (11/12/2024 12:39 PM EDT): [...] well as other thyroid function testing Morbid scnsazt7308/17/2024 Assessment & Plan (08/19/2024 1:03 PM EDT): [...] prophylaxis is VTE protocols per [facility] GI prophy Protonix Monitor labs) Obtain blood cultures Comments IV Vanco and cefepime Consult infectious diseases Early ambulation I discussed the plan of care with the patient and she is in agreement. Pmokufbmst14/02/2025 Assessment & Plan (08/17/2024 1:27 AM EDT): -Unclear blood cultures - Commence patient on Vanco/cefepime - Monitor patient blood cultures - Also evaluate lab tests and correct abnormalities - Consult infectious disease - Obtain 2D echocardiogram History of laparoscopic /25/2025hronic, continuous use of xotwrke7904/11/2024Starvation /25/2025Intestinal lpcarkviv83/07/2024 Screening for diabetes mellitus (DM)01/22/2024History of small bowel obstruction 01/21/2024Impaired intestinal kxywtuvmsf97/18/1999Amoln46/25/2024urrent use of steroid hpjlbdgoqr06/21/2024ommunity acquired pneumonia of left lower lobe of lung08/07/2023Idiopathic fqvgultgyjc65/21/2024spiration pneumonia of left lower lobe due to vomit08/04/2023Syncope and tkarlmta30/19/2024Heart nkbppwi0106/29/2023 Acute renal failure superimposed on chronic kidney nklnvrj1406/29/2023Hypokalemia 06/29/2023ecreased oral wbdtyl4805/25/20237221Sasgozcaqnrbqx78/19/2024nxiety and mivzkrdknl04/23/2023Feeding habsodt3112/07/2022Therapeutic drug monitoring 12/07/20225973Otgepzdzkrc33/12/2023ilious vomiting with hflios8510/28/2022Intractable vomiting with sakrxq8710/25/20221081Ylxxwk80/20/2023 Overview (11/09/2024): Takes Pro FE daily. Last Assessment & Plan: Assessment: iron infusions ~1 month ago Acute pain of right knee08/04/2022all stone08/04/2022Internal derangement of right pxibjbhz27/20/2023Mixed incontinence urge and wehone0608/04/2022Other specified noninflammatory disorders of xbtatq7208/04/2022atellofemoral pain syndrome of right knee08/04/2022Right flank pain08/04/2022Vaginal pain08/04/2022 Rash and nonspecific skin bocejfls89/07/2023History of Isabel-en-Y gastric bypass 06/24/2022ipolar wdlfqjyi14/07/2023astric xgyeyo9501/29/2022Iron deficiency xsxlxl2311/01/2021Ventral hernia without obstruction or ywhikhad58/27/2022 Overview (12/05/2024): Last Assessment & Plan: Assessment: will have surgery Calculus of zivitn4503/10/2021bnormal finding on imaging of liver04/07/2020 Moderate recurrent major /18/2020Situational jebcgr1101/03/2020Panic disorder without qhejlwdnzzj98/06/2020Trauma and stressor-related disorder 11/21/2019Duodenogastric reflux of bile11/16/20198466Rhemos49/10/2020Preoperative begpbxxumkn59/10/2020Regurgitation of food09/25/2019Laryngopharyngeal reflux 10/07/2018Obstructive sleep apnea kayczfah88/23/2019 Overview (12/05/2024): wears mask every night Ksvfbjogmgjcot01/20/2019Reactive dddxkqbchzou90/19/2019Chronic fatigue syndrome 09/19/2018Iron rjfqgxeomi68/05/2019Vitamin D trttahyooh08/05/2019Insomnia 09/15/2018Maltracking of right jvskajk1406/27/2018Chondromalacia of patella, right 05/30/2018Arthritis of right knee05/30/201839 weeks gestation of 11/23/2016PCOS (polycystic ovarian syndrome)10/02/2013 Overview (11/09/2024): Last Assessment & Plan: Assessment: monitored per PCP Encounters DateTypeDepartmentCare OuneUzazpjzvicq92/22/2025 11:20 AM EDTOffice Visit [facility] [place] [address] [place] [address] Wali Collins MD Spontaneous dissection of coronary artery (Primary Dx); Other fatigue; Precordial pain; Anemia due to acute blood loss12/06/2024Orders Only [facility] [address] [place] [phone] Maryuri Downing MA Anemia, unspecified type (Primary Dx)12/05/2024Orders Only [facility] [address] [place] [address] ProviderSiri MD 12/04/20242438Tfgifv71/17/2025Orders Only [facility] Endoscopy [address] [place] [address] Muna Michael RN Common bile duct dilation (Primary Dx)11/26/2024 7:34 PM EDT - 11/26/2024 9:45 PM EDTEmergency [facility] Emergency [address] [place] [address] Israel Jeong MD Acute UTI (Primary Dx) Discharge Disposition: Home or Self Care ()11/26/20245944Zlirai41/01/2025 7:56 PM EDT - 11/17/2024 2:42 PM EDTHospital Encounter [facility] [address] [place] [address] Sandeep Casey MD Chest pain (Primary Dx) Discharge Disposition: Home-Health Care Svc ()11/15/20241760Lasygx71/25/2025 10:47 AM EDT - 11/13/2024 2:34 PM EDTHospital Encounter [facility] [address] [place] [phone] Urbano Santos MD Chang, Kyu Chul, MD Schwarz, Stephanie, DO Chest pain (Primary Dx); Chronic narcotic use Discharge Disposition: Home-Health Care Svc (06)11/09/20249044Dhxgbh69/18/2025 8:45 PM EDTAnesthesia Event [facility] Main Operating Room [address] [place] [address] David Reyes MD 11/02/2024 8:45 PM EDT - 11/02/2024 11:15 PM EDTSurgery [facility] Main Operating Room [address] [place] [address] Jose Angel Fox MD EXPLORATION, HEMATOMA Right Groin11/02/2024 5:41 PM EDT - 11/02/2024 6:41 PM EDT Surgery [facility] Heart [facility] [address] [place] [address] Wali Collins MD Coronary ujndmakozfq50/17/2025 12:30 PM EDT - 11/01/2024 1:30 PM EDTSurgery [facility] [address] [place] [address] Mitchell Agustin MD Coronary gtycsalsbnd32/16/2025 1:30 PM EDT - 10/31/2024 2:30 PM EDTSurgery [facility] [address] [place] [address] Tino Gilmore MD Coronary nzvoycrknwd31/15/2025 6:28 PM EDT - 11/07/2024 5:10 PM EDTHospital Encounter [facility] [address] [place] [address] Sandeep Casey MD Spencer, Caleb T, MD Vicente, David, MD Mansur, Sarmed, MD Moukarbel, George, MD Hematoma (Primary Dx); Chest pain; NSTEMI (non-ST elevated myocardial infarction) (CMS/HCC); Spontaneous dissection of coronary artery; Gastroparesis; Gastroesophageal reflux disease without esophagitis Discharge Disposition: Home-Health Care [facility] ()10/30/2024Travelfrom Last 3 Months Family History Medical HistoryRelationNameCommentsNo Known ProblemsFatherNo Known Problems MotherRelationNameStatusCommentsFatherAliveMotherAlive Social History Tobacco UseTypesPacks/DayYears UsedDateSmoking Tobacco: NeverSmokeless Tobacco: Never Tobacco Cessation:Counseling Given: Not Answered Alcohol UseStandard Drinks/WeekCommentsNot Currently0 (1 standard drink = 0.6 oz pure alcohol)[facility] UtilitiesAnswerDate RecordedIn the past 12 months [...] 11/15/2024CommentsNoSex and Gender InformationValueDate RecordedSex Assigned at WhsdaSwpgxh71/03/2025 3:45 PM EDTLegal AwkShhhxm18/30/2022 12:07 AM EDTGender YxyimlvcSisztm31/03/2025 3:45 PM EDTSexual OrientationHeterosexual or Gjsjffxz33/03/2025 3:45 PM EDT Last Filed Vital Signs Vital SignReadingTime TakenCommentsBlood Hhauoiuh891/6010 11:10 AM EDT Hwpzm237612/06/2024 11:10 AM AIBDfvwivfhtum63.6 ??C (97.9 ??F)11/26/2024 7:34 PM EDTRespiratory Njic1853 9:25 PM EDTOxygen Qrhbhbweoy26%12/06/2024 11:10 AM EDTInhaled Oxygen Concentration--Mangfv01.6 kg (180 lb)11/26/2024 7:34 PM EDT Hfawmd864.6 cm (5' 6 )12/06/2024 11:10 AM EDTBody Mass Index29.0511/26/2024 7:34 PM EDT Plan of Treatment DateTypeDepartmentCare Team (Latest Contact Info)Xogsjtzdpiq04/30/2025 9:00 AM EDTAppointment [facility] [address] [place] [address] Braxton Bellamy MD [address] [facility] [address] [facility] [place] [address] 12/14/2024 10:30 AM EDTAppointment [facility] X-[facility] Imaging [address] [place] [address] 01/31/2025 11:00 AM ESTOffice Visit [facility] [address] [place] [address] Wali Collins MD [address] [place] [address] Health MaintenanceDue DateLast DoneCommentsDiabetes: Retinopathy Screening 1999Depression Rtoaodkgg82/17/2002Varicella Vaccines (1 of 2 - 13+ 2-dose series)2002Diabetes: Urine Protein Zgdgevqfr33/17/2009Hepatitis B Vaccines (1 of 3 - 19+ 3-dose series)2008Pneumococcal Vaccine: Pediatrics (0 to 5 Years) and At-Risk Patients (6 to 64 Years) (1 of 2 - PCV)2008Zoster Vaccines (1 of 2)2008HPV Vaccines (1 - Risk 3-dose SCDM series)2016 HPV/Adcdfn5004/03/2019Cervical Cancer Bgbtfshrr49/06/2024Pap Smear05/22/2023 05/21/2020OVID-19 Vaccine (3 - season)501/05/2021, 06/23/2020 Influenza Vaccine (#1)509/, 11/16/2021, 01/01/2021, Additional history existsDiabetes: Hemoglobin A1C509/5Adult Tetanus HIB VaccinesAged OutNo longer eligible based on patient's age to complete this topicIPV VaccinesAged OutNo longer eligible based on patient's age to complete this topicMeningococcal B VaccineAged OutNo longer eligible based on patient's age to complete this topicMeningococcal VaccineAged OutNo longer eligible based on patient's age to complete this topicRotavirus VaccinesAged OutNo longer eligible based on patient's age to complete this topic Procedures Procedure NamePriorityDate/TimeAssociated DiagnosisCommentsURINALYSIS MICROSCOPIC WITH REFLEX ZNVDEPOBNMV44/12/2025 8:27 PM EDT SERUM BMYUFOLFHOWAUMY46/12/2025 8:27 PM EDT URINALYSIS WITH REFLEX JHTVNLVQSNY24/12/2025 8:27 PM EDT XR CHEST 1 XMSBFHMJ79/12/2025 8:17 PM EDT ECG 12-HTTBZAVK81/12/2025 8:13 PM EDT CBC WITH AUTO XTTYDKVWLCVYYLSR45/12/2025 8:05 PM EDT HIGH SENSITIVITY TROPONIN ISTAT1 8:05 PM EDT MEJQCWLCLQ56/12/2025 8:05 PM EDT COMPREHENSIVE METABOLIC BSRNBSTDB11/12/2025 8:05 PM EDT CBC AND COGYGOQXDCBULAHY90/12/2025 8:05 PM EDT HEPATIC FUNCTION PANELAdd-On11/17/2024 5:17 AM EDT MAGNESIUMPending Bkdpyasmq83/03/2025 5:17 AM EDT CBCPending Losmgpggm82/03/2025 5:17 AM EDT BASIC METABOLIC PANELPending Iupbscbwl17/03/2025 5:17 AM EDT MR ABDOMEN WO CONTRAST PXXVYBEU11/02/2025 8:32 PM EDT ECG 12-GEQWDjoazpv10/02/2025 9:55 AM EDT HEPATIC FUNCTION PANELSTAT Add-on11/16/2024 5:36 AM EDT HIGH SENSITIVITY TROPONIN IAdd-On11/16/2024 5:36 AM EDT MWTPombmbb88/02/2025 5:36 AM EDT BASIC METABOLIC HGYNHAtvfwtq22/02/2025 5:36 AM EDT XR CHEST 1 JLGCCncfkme73/29/2025 12:51 PM EDT POCT GLUCOSE METER UNSOLICITED XIHPJMDWyxsmei40/29/2025 11:08 AM EDT HOME O2 EVAL (DESATURATION SCREEN)Jlgirhp1811/13/2024 10:32 AM EDTHIGH SENSITIVITY TROPONIN IPending Aneaqvask93/29/2025 7:03 AM EDT BASIC METABOLIC PANELPending Hikqlppzq40/29/2025 7:03 AM EDT CBCPending Yvupmlncw82/29/2025 7:03 AM EDT POCT GLUCOSE METER UNSOLICITED NYOWDNMEguqtij72/29/2025 7:01 AM EDT HIGH SENSITIVITY TROPONIN IPending Ujusuthwc51/29/2025 12:17 AM EDT POCT GLUCOSE METER UNSOLICITED BYYFEKVSykyunm76/29/2025 12:16 AM EDT HIGH SENSITIVITY TROPONIN IPending Wzxairzbq78/28/2025 6:28 PM EDT POCT GLUCOSE METER UNSOLICITED IQHGVVSKhhlzyo73/28/2025 6:18 PM EDT ECG 12-LCFMRudhofg37/28/2025 1:41 PM EDT HIGH SENSITIVITY TROPONIN ISTAT11/12/2024 1:34 PM EDT HIGH SENSITIVITY TROPONIN IPending Bmvrojbjd69/28/2025 10:56 AM EDT POCT GLUCOSE METER UNSOLICITED EFDYWBOJabhnjf92/28/2025 10:55 AM EDT HIGH SENSITIVITY TROPONIN IPending Hsstxvowe03/28/2025 6:30 AM EDT BASIC METABOLIC PANELPending Qgywkugfe35/28/2025 6:30 AM EDT CBCPending Cnjwzsozk89/28/2025 6:30 AM EDT POCT GLUCOSE METER UNSOLICITED KTPMEYSIuslpbx96/28/2025 6:27 AM EDT HIGH SENSITIVITY TROPONIN IPending Lkstkezui22/28/2025 12:00 AM EDT POCT GLUCOSE METER UNSOLICITED TGINWUOXvwbihp92/27/2025 11:56 PM EDT CTA CHEST W IV MDLYILNDDDDE63/27/2025 8:55 PM EDT ECG 12-PXBKWJRX15/27/2025 6:15 PM EDT HIGH SENSITIVITY TROPONIN IPending Cxzmcmxvn48/27/2025 6:14 PM EDT POCT GLUCOSE METER UNSOLICITED WAZPNAJZaknqft07/27/2025 5:16 PM EDT C-REACTIVE PROTEINPending Lfmrbnqdk53/27/2025 3:29 PM EDT POCT GLUCOSE METER UNSOLICITED RFYBNNZDvgeljh27/27/2025 12:49 PM EDT SEDIMENTATION RATEAdd-On11/11/2024 6:39 AM EDT BASIC METABOLIC PANELPending Bwafmgbup57/27/2025 6:39 AM EDT CBCPending Vyxmazkln88/27/2025 6:39 AM EDT POCT GLUCOSE METER UNSOLICITED GYTVVLCMxavmck98/27/2025 6:35 AM EDT POCT GLUCOSE METER UNSOLICITED CRVOMKCUszersr65/27/2025 12:55 AM EDT HIGH SENSITIVITY TROPONIN IPending Umhujiyma93/26/2025 8:50 PM EDT POCT GLUCOSE METER UNSOLICITED HQFNDUQVbcabrq38/26/2025 6:24 PM EDT ECG 12-VHBCTMKV44/26/2025 3:11 PM EDT HIGH SENSITIVITY TROPONIN IPending Neotufwrx68/26/2025 2:22 PM EDT POCT GLUCOSE METER UNSOLICITED ICUOWAPAlsephd61/26/2025 1:06 PM EDT LEXISCAN STRESS MYOCARDIAL PERFUSION FIFBKYQMmdswjf57/26/2025 11:23 AM EDT XR CHEST 1 QCBYLaqqflr57/26/2025 9:01 AM EDT ECG 12-PMYAFpuuusk78/26/2025 8:09 AM EDT HIGH SENSITIVITY TROPONIN ISTAT11/10/2024 7:44 AM EDT POCT GLUCOSE METER UNSOLICITED SJGVUQYXmhfrwc82/26/2025 7:39 AM EDT POCT GLUCOSE METER UNSOLICITED SWGWKNKIdqhvxn80/25/2025 9:21 PM EDT POCT GLUCOSE METER UNSOLICITED MXJYTDOSvznmgg73/25/2025 4:12 PM EDT CBC WITH AUTO QXTLFLFWPUCYEeoomwm79/25/2025 2:09 PM EDT ZKYEPRCAGFzzhjgh25/25/2025 2:09 PM EDT CBC AND JRJKDPRSOTFAQgolcxt21/25/2025 2:09 PM EDT BASIC METABOLIC LQQPQMcepevp16/25/2025 2:09 PM EDT HIGH SENSITIVITY TROPONIN QFvpoxvu59/25/2025 2:09 PM EDT ECG 12-TVRIAmrydjo87/25/2025 12:39 PM EDT POCT GLUCOSE METER UNSOLICITED VGHMYVBSnhomlz04/23/2025 4:00 PM EDT POCT GLUCOSE METER UNSOLICITED KDWATISCbfncbb39/23/2025 11:55 AM EDT ECG 12-LVMCVwrapaj32/23/2025 11:48 AM EDT POCT GLUCOSE METER UNSOLICITED IZJTOAOQtnvapj06/23/2025 7:43 AM EDT TKYDBND1911/07/2024 6:27 AM EDT HIGH SENSITIVITY TROPONIN ISTAT Add-on11/07/2024 4:50 AM EDT CALCIUM, REJHPKAYigyiqb21/23/2025 4:50 AM EDT POMFYKABQWSnpgnzr48/23/2025 4:50 AM EDT VRUPCIVJENhobhob37/23/2025 4:50 AM EDT BASIC METABOLIC WYVTPOcubmej45/23/2025 4:50 AM EDT POCT GLUCOSE METER UNSOLICITED VILAEPVXkwjtnk25/22/2025 10:59 PM EDT POCT GLUCOSE METER UNSOLICITED TYDRSUVKhiauls07/22/2025 8:22 PM EDT POCT GLUCOSE METER UNSOLICITED ANYGGLZYbdvgox70/22/2025 5:05 PM EDT CALCIUM, IONIZEDPending Gzovfstbl43/22/2025 12:24 PM EDT POCT GLUCOSE METER UNSOLICITED GIFNPMFVhauuqh87/22/2025 12:19 PM EDT VASC US LOWER EXTREMITY PSEUDOANEURYSM DUPLEX DNMNQHxncing40/22/2025 8:24 AM EDT POCT GLUCOSE METER UNSOLICITED LDWHLFCWearpqo30/22/2025 7:52 AM EDT CBC WITH AUTO DIFFERENTIALPending Byrjoshxw61/22/2025 5:50 AM EDT CBC AND UFHSWJCHZIFDFnvsbdd92/22/2025 5:50 AM EDT PHOSPHORUSPending Unelecluz91/22/2025 5:50 AM EDT MAGNESIUMPending Bionslwcq59/22/2025 5:50 AM EDT BASIC METABOLIC PANELPending Bvcoejfkq02/22/2025 5:50 AM EDT POCT GLUCOSE METER UNSOLICITED JUNAIJNNpwqbal56/21/2025 10:07 PM EDT POCT GLUCOSE METER UNSOLICITED JKEZPVZBhwkryv42/21/2025 4:37 PM EDT POCT GLUCOSE METER UNSOLICITED VZDPSKCWjypfxw90/21/2025 11:36 AM EDT HEMOGLOBIN AND HEMATOCRIT, BLOODPending Snolbpnov10/21/2025 9:01 AM EDT POCT GLUCOSE METER UNSOLICITED RLHEHXXMacafit36/21/2025 8:36 AM EDT CBCPending Eqyqqjajn57/21/2025 3:48 AM EDT PHOSPHORUSPending Gukxmlufv53/21/2025 3:48 AM EDT MAGNESIUMPending Gxofovhnx44/21/2025 3:48 AM EDT BASIC METABOLIC PANELPending Vughzrnbf98/21/2025 3:48 AM EDT CALCIUM, IONIZEDPending Gaqptfngx96/21/2025 1:00 AM EDT HEMOGLOBIN AND HEMATOCRIT, BLOODPending Qtqwwwaiu32/21/2025 12:54 AM EDT POCT GLUCOSE METER UNSOLICITED GWKLGDPLmauglo75/20/2025 10:33 PM EDT BASIC METABOLIC PANELSTAT Add-on11/04/2024 8:17 PM EDT HEMOGLOBIN AND HEMATOCRIT, BLOODPending Fcsdjtimp41/20/2025 8:13 PM EDT POCT GLUCOSE METER UNSOLICITED SEQWDZHRgewqbm66/20/2025 5:12 PM EDT TRANSFUSE RED BLOOD KDQOMOlrudxv37/20/2025 2:34 PM EDTECG 12-BEJCBVQD02/20/2025 1:59 PM EDT HEMOGLOBIN AND HEMATOCRIT, BLOODPending Zzxloesoy54/20/2025 1:38 PM EDT BASIC METABOLIC WFQWMGSCU67/20/2025 1:38 PM EDT HIGH SENSITIVITY TROPONIN ISTAT11/04/2024 1:38 PM EDT POCT GLUCOSE METER UNSOLICITED XGAYVXPOgxvkkx43/20/2025 1:06 PM EDT CTA ABDOMEN PELVIS W IV FIIDVGMJYmzujtm38/20/2025 12:48 PM EDT POCT GLUCOSE METER UNSOLICITED JKPLGUPJfmwowi48/20/2025 9:20 AM EDT POCT GLUCOSE METER UNSOLICITED RBGMTMRXuppmun40/20/2025 5:10 AM EDT CBCPending Jeqbnymet57/20/2025 5:05 AM EDT CALCIUM, IONIZEDPending Sbcronbms96/20/2025 5:05 AM EDT PHOSPHORUSPending Dpqgtwhni01/20/2025 5:05 AM EDT MAGNESIUMPending Dswjbyyuj71/20/2025 5:05 AM EDT BASIC METABOLIC PANELPending Nibhytilp02/20/2025 5:05 AM EDT POCT GLUCOSE METER UNSOLICITED KNRNHDJJuoggqf65/20/2025 12:12 AM EDT HEMOGLOBIN AND HEMATOCRIT, BLOODPending Wdsuqiadm67/20/2025 12:09 AM EDT POCT GLUCOSE METER UNSOLICITED CNSGHERYaanyjq90/19/2025 9:52 PM EDT HEMOGLOBIN AND HEMATOCRIT, BLOODPending Kakzyqgyg90/19/2025 6:34 PM EDT POCT GLUCOSE METER UNSOLICITED FAGASCQOqojcmj94/19/2025 5:35 PM EDT CBCPending Jznjsvukz72/19/2025 1:23 PM EDT POCT GLUCOSE METER UNSOLICITED RPZUSLBMasktau59/19/2025 11:35 AM EDT POCT GLUCOSE METER UNSOLICITED DKIPYESIkxcfrd52/19/2025 7:46 AM EDT CBCPending Efwsvtnsg95/19/2025 4:46 AM EDT CALCIUM, IONIZEDPending Wyizeyvhc11/19/2025 4:46 AM EDT PHOSPHORUSPending Qdptpoyba39/19/2025 4:46 AM EDT MAGNESIUMPending Goqhjeorv91/19/2025 4:46 AM EDT BASIC METABOLIC PANELPending Mwakhxuqk39/19/2025 4:46 AM EDT INTEM EJcdfifv61/19/2025 1:58 AM EDT HEPTEM IObpaulf94/19/2025 1:58 AM EDT EXTEM HSsfgnup68/19/2025 1:58 AM EDT FIBTEM SSngsptl73/19/2025 1:58 AM EDT KLZLOSN7411/03/2024 12:07 AM EDT DSMYYNDHEXGZTF68/19/2025 12:07 AM EDT KPVBETSWPTJHU39/19/2025 12:07 AM EDT BASIC METABOLIC TPSQHFACJ96/19/2025 12:07 AM EDT XYFORGRUBCCSKH94/19/2025 12:07 AM EDT PROTIME-FBHEKLN4911/03/2024 12:07 AM EDT POCT GLUCOSE METER UNSOLICITED KULOUJOEmzprrp09/18/2025 10:48 PM EDT TRANSFUSE RED BLOOD TNYQOCkxiwns27/18/2025 9:30 PM EDTTRANSFUSE RED BLOOD CELLS Lptawws0111/02/2024 9:10 PM EDTPR AN ELECTIVE ENDOTRACHEAL PTXEMKAeaudul17/18/2025 8:56 PM EDT REPAIR, UDPDKHLQXGKQQM81/18/2025 8:44 PM EDT Hematoma Right Groin EXPLORATION, GFLDPGOO55/18/2025 8:44 PM EDT Hematoma Right Groin POCT GLUCOSE METER UNSOLICITED CZFJRKMErlyxxn37/18/2025 8:30 PM EDT PREPARE LXOIakefuh23/18/2025 8:05 PM EDT PREPARE CBTTzvmocc58/18/2025 8:05 PM EDT TYPE AND SCREENPending Bxcaepavh15/18/2025 8:02 PM EDT CBCPending Tmnacozoy62/18/2025 8:02 PM EDT RED PJVHazwtpo12/18/2025 8:00 PM EDT EXTRA YCGOCYosutfj92/18/2025 8:00 PM EDT ACTIVATED CLOTTING XUIJQucrnoo05/18/2025 4:43 PM EDT POCT ACTIVATED CLOTTING UJTGEbwpody36/18/2025 4:40 PM EDT POCT ACTIVATED CLOTTING TTRTShevkmd71/18/2025 4:19 PM EDT ACTIVATED CLOTTING SXIPOayahnw57/18/2025 4:13 PM EDT ACTIVATED CLOTTING IVQOWrcjiqu45/18/2025 2:56 PM EDT INSTANT WAVE FREE RATIO (IFR)Zzvewdt9011/02/2024 2:53 PM EDT Spontaneous dissection of coronary artery ULTRASOUND - UQLFXCNXOjvggck64/18/2025 2:53 PM EDT Spontaneous dissection of coronary artery CORONARY HSTKHJZTJOPAqipchb26/18/2025 2:53 PM EDT Spontaneous dissection of coronary artery ACTIVATED CLOTTING ZMANHotyxtn01/18/2025 2:24 PM EDT ECG 12-KCVJOCXR89/18/2025 1:18 PM EDT HIGH SENSITIVITY TROPONIN ISTAT11/02/2024 1:01 PM EDT POCT GLUCOSE METER UNSOLICITED SGUHAHCSjwxdmd69/18/2025 11:07 AM EDT POCT GLUCOSE METER UNSOLICITED EZEUZYHBtsjeqv27/18/2025 7:31 AM EDT LIGHT GREEN YDYDoumiqt91/18/2025 6:15 AM EDT EXTRA FIQVQYvfgbeu48/18/2025 6:15 AM EDT CBCPending Rpnguywwz15/18/2025 6:15 AM EDT POCT GLUCOSE METER UNSOLICITED QHKENHMHkokojp82/17/2025 8:42 PM EDT POCT GLUCOSE METER UNSOLICITED ILETALOVadujpk61/17/2025 6:04 PM EDT ACTIVATED CLOTTING DOVYHexuupk71/17/2025 4:36 PM EDT POCT ACTIVATED CLOTTING PBOTYqwufsc92/17/2025 4:33 PM EDT ULTRASOUND - WVSCFTJJFqzzqnm67/17/2025 1:30 PM EDT NSTEMI (non-ST elevated myocardial infarction) (CMS/HCC) CORONARY WNRMFTCNOTWUjocenv46/17/2025 1:30 PM EDT NSTEMI (non-ST elevated myocardial infarction) (CMS/HCC) ACTIVATED CLOTTING IQFTCputnfv05/17/2025 1:27 PM EDT ACTIVATED CLOTTING JIOYMyfnkia06/17/2025 1:14 PM EDT ECG 12-IRATRfndiwt14/17/2025 12:09 PM EDT POCT GLUCOSE METER UNSOLICITED CMLBSWNDwvibmw54/17/2025 11:30 AM EDT BASIC METABOLIC PANELPending Xrefqtprw12/17/2025 10:10 AM EDT RBYWNEF0511/01/2024 10:10 AM EDT POCT GLUCOSE METER UNSOLICITED CAWCBEUFjuqnpv53/17/2025 7:43 AM EDT HIGH SENSITIVITY TROPONIN EHjhus1111/01/2024 6:42 AM EDT ANTI-FACTOR XAPending Ysiehoklv89/17/2025 6:04 AM EDT POCT GLUCOSE METER UNSOLICITED OZQSXLFGbtfbff05/17/2025 6:02 AM EDT TOXICOLOGY PANEL SWAHARyskdmw27/17/2025 2:12 AM EDT POCT GLUCOSE METER UNSOLICITED NDMKXXZEsfgiby03/16/2025 8:20 PM EDT LEFT HEART YMYYPzkiqtr76/16/2025 7:34 PM EDT NSTEMI (non-ST elevated myocardial infarction) (CMS/HCC) CORONARY SLHKPFYLUQLHlcujsk00/16/2025 7:34 PM EDT NSTEMI (non-ST elevated myocardial infarction) (CMS/HCC) POCT GLUCOSE METER UNSOLICITED GNHTFXZVjyhftv93/16/2025 11:55 AM EDT LIMITED ECHO (TTE) W/ COLOR FLOW AND IMAGING UWGJDIdzowqo89/16/2025 11:40 AM EDT ECG 12-EXEWPebvbup50/16/2025 8:47 AM EDT ECG 12-LQLBDofjjot62/16/2025 8:25 AM EDT POCT GLUCOSE METER UNSOLICITED MAYTZMKOopvdjm72/16/2025 7:22 AM EDT HEMOGLOBIN H2KLrr-Dj42/16/2025 6:27 AM EDT LIPID PANELAdd-On10/31/2024 6:27 AM EDT MAGNESIUMAdd-On10/31/2024 6:27 AM EDT ANTI-FACTOR TAHwxyawr97/16/2025 6:27 AM EDT VFHAlevpqf47/16/2025 6:27 AM EDT BASIC METABOLIC TAQZIFeztkvf69/16/2025 6:27 AM EDT HIGH SENSITIVITY TROPONIN LQupoe6010/31/2024 6:27 AM EDT ANTI-FACTOR DWQggtatq94/16/2025 1:38 AM EDT HIGH SENSITIVITY TROPONIN WDiucc2110/31/2024 1:38 AM EDT POCT GLUCOSE METER UNSOLICITED RDJFXFITwzhuxo86/15/2025 9:12 PM EDT ECG 12-WRLMNCSM61/15/2025 8:00 PM EDT ANTI-FACTOR XASTAT Add-on10/30/2024 7:11 PM EDT DWHFDMLT70/15/2025 7:11 PM EDT TSH3 REFLEX TO MK2IHUM4410/30/2024 7:11 PM EDT CBC WITH AUTO DPTQCWWUPFBESFUI08/15/2025 7:11 PM EDT B-TYPE NATRIURETIC VSOAOYTHPAC43/15/2025 7:11 PM EDT CBC AND JGCBEUGZCDSQJDBH78/15/2025 7:11 PM EDT PROTIME-JRTVGKY5210/30/2024 7:11 PM EDT UGJKSYACKUURUE93/15/2025 7:11 PM EDT HIGH SENSITIVITY TROPONIN ISTAT10/30/2024 7:11 PM EDT YFPVQRJXOAJSY49/15/2025 7:11 PM EDT COMPREHENSIVE METABOLIC RYZZPUJIE36/15/2025 7:11 PM EDT from Last 3 Months Results * Urinalysis microscopic with reflex culture (11/26/2024 8:27 PM EDT)Component ValueRef RangeTest MethodAnalysis TimePerformed AtPathologist SignatureRBC, Urine0-2None Seen, 0-2 /HPF11/26/2024 8:52 PM [facility] ([facility]) WBC, Urine0-2None Seen, 0-2 /HPF11/26/2024 8:52 PM [facility] ([facility])Squamous Epithelial, UrineNone SeenNone Seen, Occasional, Few /LPF 11/26/2024 8:52 PM [facility] ([facility])Mucus, UrineOccasionalNone Seen, Occasional, Few /LP11/26/2024 8:52 PM [facility] ([facility]) Specimen (Source)Anatomical Location / LateralityCollection Method / Volume Collection TimeReceived TimeUrineUrine specimen obtained by clean catch procedure / UnknownNon-blood Collection / Znrqzzr4411/26/2024 8:27 PM EDT 11/26/2024 8:33 PM EDT Narrative Authorizing ProviderResult TypeResult StatusDustin Jean-Paul ANNIKA URINE ORDERABLES Final ResultPerforming OrganizationAddressCity/State/ZIP CodePhone Number [facility] ([facility]) [address] [place] [address] * (ABNORMAL) Urinalysis with reflex culture (11/26/2024 8:27 PM EDT)Component ValueRef RangeTest MethodAnalysis TimePerformed AtPathologist SignatureColor, UrineDark-Yellow(A)Colorless, Yellow, Light-Ulivta4611/26/2024 8:52 PM [facility] ([facility])Clarity, ZwowpRnslyHnexb49/12/2025 8:52 PM [facility] ([facility])pH, Urine7.05.0 - 8.0 pH11/26/2024 8:52 PM [facility] ([facility])Leukocytes, UrineTrace(A)Sfbecqyq28/12/2025 8:52 PM EDT [facility] ([facility])Nitrite, UrinePositive(A)Kbomvknw24/12/2025 8:52 PM [facility] ([facility])Protein, UrineNegativeNegative mg/dL11/26/2024 8:52 PM [facility] ([facility])Glucose, UrineNormalNormal mg/dL 11/26/2024 8:52 PM [facility] ([facility])Bilirubin, UrineSmall(A) Qyugxbpc14/12/2025 8:52 PM [facility] ([facility])Specific Center, Urine1.0181.010 - 1.4143111/26/2024 8:52 PM [facility] ([facility]) Ketones, UrineNegativeNegative mg/dL11/26/2024 8:52 PM [facility] ([facility])Blood, DmnmnUcwgozlgRhpanire66/12/2025 8:52 PM [facility] ([facility])Urobilinogen, Urine4.0(A)Normal mg/dL11/26/2024 8:52 PM [facility] ([facility])Specimen (Source)Anatomical Location / Laterality Collection Method / VolumeCollection TimeReceived TimeUrineUrine specimen obtained by clean catch procedure / UnknownNon-blood Collection / Unknown 11/26/2024 8:27 PM EDT1 8:33 PM EDT Narrative Authorizing ProviderResult TypeResult StatusDustin Jean-Paul ANNIKA URINE ORDERABLES Final ResultPerforming OrganizationAddressCity/State/ZIP CodePhone Number [facility] ([facility]) [address] [place], [place] [id number] * Serum Qualitative (11/26/2024 8:27 PM EDT)ComponentValueRef Range Test MethodAnalysis TimePerformed AtPathologist SignaturehCG, SerumNegative 11/26/2024 8:51 PM [facility] ([facility])Specimen (Source)Anatomical Location / LateralityCollection Method / VolumeCollection TimeReceived Time BloodVenous blood specimen / UnknownExisting Catheter / Psqvqvd6011/26/2024 8:27 PM EDT1 8:33 PM EDT Narrative Authorizing ProviderResult TypeResult StatusDustin Jean-Paulladi ROBLERO BLOOD ORDERABLES Final ResultPerforming OrganizationAddressCity/State/ZIP CodePhone Number [facility]) [place] [address] * XR chest 1 view (11/26/2024 8:17 PM EDT) Only the most recent of3 resultswithin the time period is included. Anatomical RegionLateralityModalityChestComputed RadiographySpecimen (Source) Anatomical Location / LateralityCollection Method / VolumeCollection Time Received Time11/26/2024 8:21 PM EDT Impressions 11/26/2024 8:37 [...] AILEEN GRACE MD. Authorizing ProviderResult TypeResult StatusDustin Jean-Paulladi KOOG XR PROCEDURESFinal Result * ECG 12 lead (11/26/2024 8:13 PM EDT) Only the most recent of14 resultswithin the time period is included. ComponentValueRef RangeTest MethodAnalysis TimePerformed AtPathologist Signature Ventricular Vxmx66AZRDM MUSEAtrial Ioor07WAVZM MUSEPR Nccwenuv587kyHL MUSEQRS DBGGVQRR89jqBE MUSEQT Qhwuhpmt391xlXQ MUSEQTC CALCULATION(BAZETT)470msGE MUSEP Jnxi45tcrintkUY MUSER-Admx85cwbmapzHA MUSET Wave Clzr01dzxrijyMR MUSESpecimen (Source)Anatomical Location / LateralityCollection Method / [...] 8:15:28 PM Authorizing ProviderResult TypeResult StatusDustin Jean-Paul MARJAN ORDERABLESFinal ResultPerforming OrganizationAddressCity/State/ZIP CodePhone Number [facility] MUSE * HS Troponin I (11/26/2024 8:05 PM EDT) Only the most recent of21 resultswithin the time period is included. ComponentValueRef RangeTest MethodAnalysis TimePerformed AtPathologist Signature High Sensitivity Troponin I<2<15 ng/L1 8:42 PM [facility] ([place])Specimen (Source)Anatomical Location / LateralityCollection Method / VolumeCollection TimeReceived TimeBloodVenous blood specimen / UnknownExisting Catheter / Ymoqscg8211/26/2024 8:05 PM EDT10/01/2025 8:13 PM EDT Narrative Authorizing ProviderResult TypeResult StatusDustin Jean-Paul ANNIKA BLOOD ORDERABLES Final ResultPerforming OrganizationAddressCity/State/ZIP CodePhone Number [facility] ([facility]) [address] [place] [address] * (ABNORMAL) CBC auto differential (11/26/2024 8:05 PM EDT) Only the most recent of4 resultswithin the time period is included. ComponentValueRef RangeTest MethodAnalysis TimePerformed AtPathologist Signature Auto WBC5.234.00 - 10.60 10*3/uL11/26/2024 8:18 PM [facility] ([facility]) RBC3.37(L)3.80 - 5.00 10*6/uL11/26/2024 8:18 PM [facility] ([facility]) Hemoglobin9.9(L)12.0 - 15.0 g/dL11/26/2024 8:18 PM [facility] ([facility]) Uzpjdkwmwc93.9(L)36.0 - 45.0 %11/26/2024 8:18 PM [facility] ([facility]) MCV88.782.0 - 98.0 fL11/26/2024 8:18 PM [facility] ([facility])MCH29.427.0 - 33.0 pg11/26/2024 8:18 PM [facility] ([facility])MCHC33.132.0 - 35.0 g/dL11/26/2024 8:18 PM [facility] ([facility])RDW14.011.5 - 15.0 % 11/26/2024 8:18 PM [facility] ([facility])Neutrophils %44.540.0 - 72.0 % 11/26/2024 8:18 PM [facility] ([facility])Lymphocytes %40.520.0 - 45.0 % 11/26/2024 8:18 PM [facility] ([facility])Monocytes %10.95.0 - 12.0 % 11/26/2024 8:18 PM [facility] ([facility])Eosinophils %3.10.0 - 6.0 % 11/26/2024 8:18 PM [facility] ([facility])Basophils %0.80.0 - 1.0 % 11/26/2024 8:18 PM [facility] ([facility])Neutrophils Absolute2.331.60 - 7.60 10*3/uL11/26/2024 8:18 PM [facility] ([facility])Lymphocytes Absolute 2.121.20 - 4.00 10*3/uL11/26/2024 8:18 PM [facility] ([facility])Monocytes Absolute0.570.10 - 1.00 10*3/uL11/26/2024 8:18 PM [facility] ([facility]) Eosinophils Absolute0.160.00 - 0.50 10*3/uL11/26/2024 8:18 PM [facility] ([facility])Basophils Absolute0.040.00 - 0.20 10*3/uL11/26/2024 8:18 PM [facility])Rikpailai371149 - 400 10*3/uL11/26/2024 8:18 PM [facility] ([facility])nRBC %0.00 %11/26/2024 8:18 PM [facility])Immature Granulocytes %0.20.0 - 1.0 %11/26/2024 8:18 PM [facility])Immature Granulocytes Absolute0.010.00 - 0.20 10*3/uL11/26/2024 8:18 PM [facility])Specimen (Source)Anatomical Location / LateralityCollection Method / VolumeCollection TimeReceived TimeBloodVenous blood specimen / UnknownExisting Catheter / Koqgljy7511/26/2024 8:05 PM EDT 11/26/2024 8:13 PM EDT Narrative Authorizing ProviderResult TypeResult StatusDustin Jean-Paul ANNIKA BLOOD ORDERABLES Final ResultPerforming OrganizationAddressCity/State/ZIP CodePhone Number [facility] ([facility]) [address] [place] [address] * Lipase (11/26/2024 8:05 PM EDT)ComponentValueRef RangeTest MethodAnalysis Time Performed AtPathologist EkvknmtjyCvywjh7026 - 82 U/L1 8:36 PM [facility] ([facility])Specimen (Source)Anatomical Location / Laterality Collection Method / VolumeCollection TimeReceived TimeBloodVenous blood specimen / UnknownExisting Catheter / Xkuktnm7811/26/2024 8:05 PM EDT1 8:13 PM EDT Narrative Authorizing ProviderResult TypeResult StatusDustin Jean-Paul ANNIKA BLOOD ORDERABLES Final ResultPerforming OrganizationAddressCity/State/ZIP CodePhone Number [facility] ([facility]) [address] [place] [address] * (ABNORMAL) Comprehensive metabolic panel (11/26/2024 8:05 PM EDT) Only the most recent of2 resultswithin the time period is included. ComponentValueRef RangeTest MethodAnalysis TimePerformed AtPathologist Signature Ndglwv767457 - 145 mmol/L1 8:36 PM [facility] ([facility]) Potassium3.73.5 - 5.1 mmol/L1 8:36 PM [facility] ([facility]) Ruezicrp969(H)98 - 107 mmol/L1 8:36 PM [facility] ([facility])CO2 2221 - 31 mmol/L1 8:36 PM [facility] ([facility])Anion Gap97 - 20 mmol/L1 8:36 PM [facility] ([facility])BUN97 - 25 mg/dL11/26/2024 8:36 PM [facility] ([facility])Creatinine0.59(L)0.60 - 1.20 mg/dL 11/26/2024 8:36 PM [facility] ([facility])BUN/Creatinine Ratio15.3 11/26/2024 8:36 PM [facility] ([facility])Uevxfrd7174 - 100 mg/dL 11/26/2024 8:36 PM [facility] ([facility])Calcium7.4(L)8.6 - 10.3 mg/dL 11/26/2024 8:36 PM [facility] ([facility])PRD9913 - 39 U/L1 8:36 PM [facility] ([facility])ALT (SGPT)127 - 52 U/L1 8:36 PM [facility] ([facility])Alkaline Mcwenqrkrbr9389 - 104 U/L1 8:36 PM EDT [facility] ([facility])Total Protein5.6(L)6.0 - 8.3 g/dL11/26/2024 8:36 PM [facility] ([facility])Albumin3.63.5 - 5.7 g/dL11/26/2024 8:36 PM [facility] ([facility])Total Bilirubin0.2(L)0.3 - 1.0 mg/dL11/26/2024 8:36 PM T [facility] ([facility])bXPZ260.5>60.0 mL/min/1.73m* 8:36 PM EDT [facility] ([facility])Comment:[facility]???s estimated glomerular filtration rate (eGFR) will no [...] not disproportionately affect any one group of individuals.Specimen (Source) Anatomical Location / LateralityCollection Method / VolumeCollection Time Received TimeBloodVenous blood specimen / UnknownExisting Catheter / Unknown 11/26/2024 8:05 PM EDT1 8:13 PM EDT Narrative Authorizing ProviderResult TypeResult StatusDustin Jean-Paul ANNIKA BLOOD ORDERABLES Final ResultPerforming OrganizationAddressCity/State/ZIP CodePhone Number [facility] ([facility]) [address] [place] [address] * (ABNORMAL) CBC (11/17/2024 5:17 AM EDT) Only the most recent of15 resultswithin the time period is included. ComponentValueRef RangeTest MethodAnalysis TimePerformed AtPathologist Signature Auto WBC2.92(L)4.00 - 10.60 10*3/uL11/17/2024 5:40 AM [facility] ([facility])RBC2.88(L)3.80 - 5.00 10*6/uL11/17/2024 5:40 AM [facility] ([facility])Hemoglobin8.5(L)12.0 - 15.0 g/dL11/17/2024 5:40 AM [facility] ([facility])Lsiwkixqsq19.9(L)36.0 - 45.0 %11/17/2024 5:40 AM [facility] ([facility])MCV89.982.0 - 98.0 fL11/17/2024 5:40 AM [facility] ([facility])MCH 29.527.0 - 33.0 pg11/17/2024 5:40 AM [facility] ([facility])MCHC32.832.0 - 35.0 g/dL11/17/2024 5:40 AM [facility] ([facility])RDW14.611.5 - 15.0 % 11/17/2024 5:40 AM [facility] ([facility])[id number] - 400 10*3/uL 11/17/2024 5:40 AM [facility] ([facility])Specimen (Source)Anatomical Location / LateralityCollection Method / VolumeCollection TimeReceived TimeBlood Venous blood specimen / UnknownExisting Catheter / Vkexwle1211/17/2024 5:17 AM EDT 11/17/2024 5:25 AM EDT Narrative Authorizing ProviderResult TypeResult StatusOmar Carmela ROBLERO BLOOD ORDERABLES Final ResultPerforming OrganizationAddressCity/State/ZIP CodePhone Number [facility] ([facility]) [address] [place] [address] * Magnesium (11/17/2024 5:17 AM EDT) Only the most recent of10 resultswithin the time period is included. ComponentValueRef RangeTest MethodAnalysis TimePerformed AtPathologist Signature Magnesium1.91.9 - 2.7 mg/dL11/17/2024 7:00 AM [facility] ([facility]) Specimen (Source)Anatomical Location / LateralityCollection Method / Volume Collection TimeReceived TimeBloodVenous blood specimen / UnknownExisting Catheter / Baoqico5911/17/2024 5:17 AM EDT1 5:24 AM EDT Narrative Authorizing ProviderResult TypeResult StatusOmar Carmela ROBLERO BLOOD ORDERABLES Final ResultPerforming OrganizationAddressCity/State/ZIP CodePhone Number [facility] ([facility]) [address] [place] [address] * (ABNORMAL) Hepatic function panel (11/17/2024 5:17 AM EDT) Only the most recent of2 resultswithin the time period is included. ComponentValueRef RangeTest MethodAnalysis TimePerformed AtPathologist Signature Total Bilirubin0.30.3 - 1.0 mg/dL11/17/2024 8:50 AM [facility] ([facility])Bilirubin, Direct0.00 - 0.2 mg/dL11/17/2024 8:50 AM [facility] ([facility])Alkaline Iondczpmesw2798 - 104 U/L1 8:50 AM [facility] ([facility])[id number] - 39 U/L1 8:50 AM [facility] ([facility])ALT (SGPT)117 - 52 U/L1 8:50 AM [facility] ([facility])Total Protein 5.2(L)6.0 - 8.3 g/dL11/17/2024 8:50 AM [facility] ([facility])Albumin3.2 (L)3.5 - 5.7 g/dL11/17/2024 8:50 AM [facility] ([facility])Specimen (Source)Anatomical Location / LateralityCollection Method / VolumeCollection TimeReceived TimeBloodVenous blood specimen / UnknownExisting Catheter / Unknown 11/17/2024 5:17 AM EDT1 5:24 AM EDT Narrative Authorizing ProviderResult TypeResult StatusArabella Patel CNPLAB BLOOD ORDERABLESFinal ResultPerforming OrganizationAddressCity/State/ZIP CodePhone Number [facility] [address] [place] [address] * (ABNORMAL) Basic metabolic panel (11/17/2024 5:17 AM EDT) Only the most recent of16 resultswithin the time period is included. ComponentValueRef RangeTest MethodAnalysis TimePerformed AtPathologist Signature Bukxhw701942 - 145 mmol/L1 7:00 AM [facility] ([facility]) Potassium3.63.5 - 5.1 mmol/L1 7:00 AM [facility] ([facility]) Zbgcgzri154(H)98 - 107 mmol/L1 7:00 AM [facility] ([facility])CO2 2521 - 31 mmol/L1 7:00 AM [facility] ([facility])IIV921 - 25 mg/dL11/17/2024 7:00 AM [facility] ([facility])Creatinine0.720.60 - 1.20 mg/dL11/17/2024 7:00 AM [facility] ([facility])Sklymiz7984 - 100 mg/dL 11/17/2024 7:00 AM [facility] ([facility])Calcium8.0(L)8.6 - 10.3 mg/dL 11/17/2024 7:00 AM [facility] ([facility])Anion Ofd728 - 20 mmol/L 11/17/2024 7:00 AM [facility] ([facility])rQWB830.8>60.0 mL/min/1.73m*2 11/17/2024 7:00 AM [facility] ([facility])Comment:The [facility]???s estimated glomerular filtration rate (eGFR) will no longer include consideration of race in its calculation. The National Kidney Foundation???s eGFR Task Force developed new recommendations for the estimation of the glomerular filtration rate in the [place] They recommend immediate implementation of the new equation refit without the race variable in all la boratories because the calculation does not include race. In addition to not including race in the calculation and reporting, it included diversity in its development, and has acceptable performance characteristics and potential consequences that do not disproportionately affect any one group of individuals. BUN/Creatinine Ratio13.91 7:00 AM [facility]Specimen (Source)Anatomical Location / LateralityCollection Method / VolumeCollection TimeReceived TimeBloodVenous blood specimen / UnknownExisting Catheter / Unknown 11/17/2024 5:17 AM EDT1 5:24 AM EDT Narrative Authorizing ProviderResult TypeResult StatusOmar Carmela ROBLERO BLOOD ORDERABLES Final ResultPerforming OrganizationAddressCity/State/ZIP CodePhone Number [facility] ([place]) [address] [place] [address] * MR abdomen wo contrast MRCP (11/16/2024 8:32 PM EDT)Anatomical Region LateralityModalityAbdomenMagnetic ResonanceSpecimen (Source)Anatomical Location / LateralityCollection Method / VolumeCollection TimeReceived Time 11/17/2024 7:41 AM EDT Impressions 11/17/2024 7:55 [...] transverse colon. Electronically signed: Willis Simons MD. Authorizing ProviderResult TypeResult StatusOmazita Casey MDIMG MRI PROCEDURES Final Result * POCT glucose meter (11/13/2024 11:08 AM EDT) Only the most recent of51 resultswithin the time period is included. ComponentValueRef RangeTest MethodAnalysis TimePerformed AtPathologist Signature Glucose ROO3944 - 105 mg/dL11/13/2024 11:26 AM [facility] Comment:inbda64Zxyhusgx (Source)Anatomical Location / LateralityCollection Method / VolumeCollection TimeReceived TimeBloodCapillary blood specimen / Weianzl9511/13/2024 11:08 AM EDT11/13/2024 11:26 AM EDT Narrative [facility] ([facility]) - 11/13/2024 11:26 AM EDT Waived Testing in the ED is performed under the ED CLIA certificate #[id number]. Authorizing ProviderResult TypeResult StatusMarky Tavares MDLAB BLOOD ORDERABLESFinal ResultPerforming OrganizationAddressCity/State/ZIP CodePhone Number [facility] ([facility]) [address] [place] [address] * CTA Chest W IV Contrast (11/11/2024 8:55 PM EDT)Anatomical RegionLaterality ModalityBody, ChestComputed TomographySpecimen (Source)Anatomical Location / LateralityCollection Method / VolumeCollection TimeReceived Time11/11/2024 9:09 PM EDT Impressions 11/11/2024 10:51 PM EDT No evidence of pulmonary embolism or other acute intrathoracic process. Approved by:Claus Sams11/11/2024 9:16 PM. IRebecca,have reviewed the image(s) and agree with the findings in this report. Electronically signed: Rebecca Solano. Narrative 11/11/2024 10:51 PM EDT CTA CHEST W IV CONTRAST HISTORY: ??Chest pain and shortness of breath. COMPARISON: ??None. TECHNIQUE: Contiguous axial images are obtained of the Chest with 100 mL of Omnipaque 350 IV contrast. Coronal and sagittal reconstructions were performed and reviewed. Sagittal and coronal reformatted images with 3-D Maximum intensity projection reconstructions constructed under concurrent physician supervision on a separate workstation. ??Automatic exposure control was utilized. ??All CT scans at this facility use dose modulation, iterative reconstruction, and/or weight based dosing when appropriate to reduce radiation dose to as low as reasonably achievable. FINDINGS: LUNGS/PLEURA: The airways are patent. ??No pneumothorax or pleural effusion. No focal consolidation. Mild bibasilar dependent atelectasis. HEART/VESSELS/MEDIASTINUM: No cardiomegaly or pericardial effusion. ??The aorta is nonaneurysmal and without dissection. The pulmonary trunk is non-dilated. No filling defects of the main pulmonary arteries, lobar branches, or segmental branches to suggest emboli. No significant coronary artery calcifications. No enlarged mediastinal or hilar lymph nodes. ??Right IJ central venous catheter terminates in the right atrium. LOWER NECK AND UPPER ABDOMEN: The visualized thyroid is unremarkable. ??No acute abnormality within the visualized abdomen. ??Similar appearance of numerous hypoattenuating hepatic lesions, larger [...] findingsin this report. Electronically signed: Rebecca Solano. Authorizing ProviderResult TypeResult StatusMarky Tavares MDIMG CT PROCEDURES Final Result * (ABNORMAL) C-reactive protein (11/11/2024 3:29 PM EDT)ComponentValueRef Range Test MethodAnalysis TimePerformed AtPathologist VlqchojbxVAE85.4(H)<=5.0 mg/L 11/13/2024 10:24 AM [facility] ([place])Comment:Testing performed using a new methodology, turbidimetry. Normal ranges have been updated. Old normal range was <8 mg/L.Specimen (Source)Anatomical Location / Laterality Collection Method / VolumeCollection TimeReceived TimeBloodVenous blood specimen / UnknownExisting Catheter / Gqeykuc9711/11/2024 3:29 PM EDT11/11/2024 3:42 PM EDT Narrative Authorizing ProviderResult TypeResult StatusJonelle ROBLERO BLOOD ORDERABLESFinal ResultPerforming OrganizationAddressCity/State/ZIP CodePhone Number [facility] [address] [place] [address] * (ABNORMAL) Sedimentation rate (11/11/2024 6:39 AM EDT)ComponentValueRef Range Test MethodAnalysis TimePerformed AtPathologist SignatureSed Rate20(H)<20 mm/hr11/11/2024 12:20 PM [facility] ([place])Specimen (Source) Anatomical Location / LateralityCollection Method / VolumeCollection Time Received TimeBloodVenous blood specimen / UnknownExisting Catheter / Unknown 11/11/2024 6:39 AM EDT11/11/2024 6:43 AM EDT Narrative Authorizing ProviderResult TypeResult StatusSaramiro Harrison MDLAB BLOOD ORDERABLESFinal ResultPerforming OrganizationAddressCity/State/ZIP CodePhone Number [facility] ([place]) [address] [place] [address] * LEXISCAN STRESS MYOCARDIAL PERFUSION IMAGING (11/10/2024 11:23 AM EDT) Anatomical RegionLateralityModalityOtherSpecimen (Source)Anatomical Location / LateralityCollection Method / VolumeCollection TimeReceived Time11/10/2024 11:14 AM EDT Addenda Addendum by Mitul Moya MD on 11/10/2024 4:35 PM EDT 1 1 [facility] [address] [place] [address] (fax) Lexiscan Stress Myocardial Perfusion Imaging- [facility] Name: JUAN GARCIA Study Date: 11/10/2024 11:14 AM B/P: / HR: Date of : 1990 Location: [facility] Height: 65 in. Age: 34 year(s) [...] calcifications seen on attenuation gated CT scan. ??Findings Technique IV Lexiscan Nuclear cardiac stress scan [...] Lexiscan Exercise Time: 03:02 Device: Treadmill HR [place] Used: 21.00 % HR Recovery: 2 bpm Frequent VE: 1 VE/min Resolution: Persisted Max HR: 98 bpm Target HR: 157 bpm Achieved: No Resting HR: 68 bpm Max Predicted HR: 185 bpm Achv. of Max Predicted: 52 % BP Max: 105/71 BP at Rest: 105/71 Max RPP: 68640 mmHg*bpm Max ST Lead: III Max ST Phase: Infusion Stage No. in Phase: [address] Stage: INFUS2:[address] Amplitude: -0.[address] [place]: -0.670 mV/s Max ST Time in Phase: [...] 1.00 mets 67 bpm 105/71 0.250 mm [id number] 00:30 1.00 mets 90 bpm 102/70 0.400 [...] Reading Group: [facility] Referring Physician: BRITT ALAS Stress Photocopier Technician: Allyson Lake ??Toddler Teacher: Lauren Sanchez ??Ordering Physician: BACILIO PEÑA ??Advanced Practitioner: CRISTINA Gibson ??Nurse: Evelyne Abrams ?? Narrative 11/10/2024 4:35 PM EDT 1 1 [facility] [address] [id number] [phone] (fax) Lexiscan Stress Myocardial Perfusion Imaging- [facility] Name: JUAN GARCIA Study Date: 11/10/2024 11:14 AM B/P: / HR: Date of : 1990 Location: [facility] Height: 65 in. Age: 34 year(s) [...] calcifications seen on attenuation gated CT scan. ??Findings Technique IV Lexiscan Nuclear cardiac stress scan [...] Lexiscan Exercise Time: 03:02 Device: Treadmill HR [place] Used: 21.00 % HR Recovery: 2 bpm Frequent VE: 1 VE/min Resolution: Persisted Max HR: 98 bpm Target HR: 157 bpm ?? Achieved: No Resting HR: 68 bpm Max Predicted HR: 185 bpm Achv. of Max Predicted: 52 % BP Max: 105/71 BP at Rest: 105/71 Max RPP: 19771 mmHg*bpm Max ST Lead: III Max ST Phase: Infusion Stage No. in Phase: [address] Stage: INFUS2:[address] Amplitude: -0.[address] [place]: -0.670 mV/s Max ST Time in Phase: [...] 1.00 mets 67 bpm 105/71 0.250 mm [id number] 00:30 1.00 mets 90 bpm 102/70 0.400 [...] Reading Group: [facility] Referring Physician: BRITT ALAS ??Stress Photocopier Technician: Allyson [place] ??Toddler Teacher: Lauren Sanchez Ordering Physician: BACILIO PEÑA ??Advanced Practitioner: CRISTINA Gibson ??Nurse: Evelyne Abrams ?? Resting Perfusion Procedure Note Mitul Moya MD - 11/10/2024 1 1 [facility] [address] [id number] [phone] (fax) Lexiscan Stress Myocardial Perfusion Imaging- [facility] Name: JUAN GARCIA Study Date: 11/10/2024 11:14 AM B/P: / HR: Date of : 1990 Location: [facility] Height: 65 in. Age: 34 year(s) [...] Lexiscan Exercise Time: 03:02 Device: Treadmill HR [place] Used: 21.00 % HR Recovery: 2 bpm Frequent VE: 1 VE/min Resolution: Persisted Max HR: 98 bpm Target HR: 157 bpm Achieved: No Resting HR: 68 bpm Max Predicted HR: 185 bpm Achv. of Max Predicted: 52 % BP Max: 105/71 BP at Rest: 105/71 Max RPP: 29169 mmHg*bpm Max ST Lead: III Max ST Phase: Infusion Stage No. in Phase: [address] Stage: INFUS2:[address] Amplitude: -0.[address] [place]: -0.670 mV/s Max ST Time in Phase: [...] 1.00 mets 67 bpm 105/71 0.250 mm [id number] 00:30 1.00 mets 90 bpm 102/70 0.400 [...] Reading Group: [facility] Referring Physician: BRITT ALAS Stress Photocopier Technician: [place]son [place] Toddler Teacher: Lauren Sanchez Ordering Physician: BACILIO PEÑA Advanced Practitioner: CRISTINA Gibson Nurse: Evelyne Abrams Resting Perfusion Authorizing ProviderResult TypeResult Curt Peña [facility] STRESS PROCEDURES Edited Result - Final * Phosphorus (11/07/2024 4:50 AM EDT) Only the most recent of7 resultswithin the time period is included. ComponentValueRef RangeTest MethodAnalysis TimePerformed AtPathologist Signature Phosphorus4.72.5 - 5.0 mg/dL11/07/2024 5:52 AM [facility] ([place] Specimen (Source)Anatomical Location / LateralityCollection Method / Volume Collection TimeReceived TimeBloodVenous blood specimen / UnknownExisting Catheter / Pvxctyg4111/07/2024 4:50 AM EDT11/07/2024 5:24 AM EDT Narrative Authorizing ProviderResult TypeResult Darcie DE LA ROSA BLOOD ORDERABLESFinal ResultPerforming OrganizationAddressCity/State/ZIP CodePhone Number [facility] ([place]) [address] [place] [address] * Calcium, ionized (11/07/2024 4:50 AM EDT) Only the most recent of5 resultswithin the time period is included. ComponentValueRef RangeTest MethodAnalysis TimePerformed AtPathologist Signature Calcium, Ion1.161.15 - 1.33 mmol/L11/07/2024 5:43 AM [facility] Specimen (Source)Anatomical Location / LateralityCollection Method / Volume Collection TimeReceived TimeBloodVenous blood specimen / UnknownExisting Catheter / Krgqykv9711/07/2024 4:50 AM EDT11/07/2024 5:38 AM EDT Narrative Authorizing ProviderResult TypeResult StatusEduarda DE LA ROSA BLOOD ORDERABLES Final ResultPerforming OrganizationAddressCity/State/ZIP CodePhone Number [facility] [address] [place] [address], [place] * Vasc Us Lower Extremity Pseudoaneurysm Duplex Right (11/06/2024 8:24 AM EDT) Anatomical RegionLateralityModalityLower ExtremitiesUltrasoundSpecimen (Source)Anatomical Location / LateralityCollection Method / VolumeCollection TimeReceived Time11/06/2024 8:20 AM EDT Impressions 11/10/2024 10:17 AM EDT Right: No evidence of pseudoaneurysm. Multiphasic Doppler signals and no significant spectral Doppler or color flow disturbances noted in Common femoral 94/10 cm/sec, Deep femoral 60/9 cm/sec, Proximal superficial femoral 131/15cm/sec artery. Common femoral and proximal femoral vein compressed and presented with phasic spectral Doppler signals. Right: No evidence of pseudoaneurysm. ??Multiphasic Doppler signals and no significant spectral Doppler or color flow disturbances noted in Common femoral ??94/10 cm/sec, Deep femoral ??60/9 cm/sec, Proximal superficial femoral 131/15cm/sec artery. Common femoral and proximal femoral vein compressed and presented with phasic spectral Doppler signals. ?? Conclusions: No evidence of pseudoaneurysm right groin. [...] The groin area was evaluated with ultrasound. ??This involved evaluation of the adjacentvessels using real-time ultrasound, color and spectral Doppler. ??Evaluation for the length and width of the neck supplying the pseudoaneurysm when pseudoaneurysm is present. ?? Procedure Note Fela Kingsley MD - 11/10/2024 [...] groin. Normal right arterial segments and vein Authorizing ProviderResult TypeResult StatusKellilyladi [facility] CV VASCULAR PROCEDURESFinal Result * (ABNORMAL) Hemoglobin and hematocrit, blood (11/05/2024 9:01 AM EDT) Only the most recent of6 resultswithin the time period is included. ComponentValueRef RangeTest MethodAnalysis TimePerformed AtPathologist Signature Hemoglobin9.4(L)12.0 - 15.0 g/dL11/05/2024 9:24 AM EDT[facility] Iyilzpqigt28.5(L)36.0 - 45.0 %11/05/2024 9:24 AM [facility] ([place] Specimen (Source)Anatomical Location / LateralityCollection Method / Volume Collection TimeReceived TimeBloodVenous blood specimen / UnknownExisting Catheter / Nydmgbw1311/05/2024 9:01 AM EDT11/05/2024 9:09 AM EDT Narrative Authorizing ProviderResult TypeResult StatusTomasa Disla MDLAB BLOOD ORDERABLESFinal ResultPerforming OrganizationAddressCity/State/ZIP CodePhone Number [facility] ([place]) [address] [place] [address] * Transfuse RBC (11/04/2024 4:57 PM EDT) Only the most recent of3 resultswithin the time period is included. Narrative Authorizing ProviderResult TypeResult StatusTomasa Brownry-Traceydonant MDBLOOD TRANSFUSION ORDERABLESFinal Result * CTA Abdomen Pelvis W IV Contrast (11/04/2024 12:48 PM EDT)Anatomical Region LateralityModalityBody, Pelvis, AbdomenComputed TomographySpecimen (Source) Anatomical Location / LateralityCollection Method / VolumeCollection Time Received Time11/05/2024 8:05 AM EDT Impressions 11/05/2024 8:14 AM [...] are detailed above Electronically signed: Raegan Quinn. Authorizing ProviderResult TypeResult StatusKelmaida [facility] CT PROCEDURES Final Result * HEPTEM C (11/03/2024 1:58 AM EDT)ComponentValueRef RangeTest MethodAnalysis TimePerformed AtPathologist SignatureHEPTEM C CLOTTING [id number] - 215 s 11/03/2024 1:58 AM [facility] RESPIRATORY THERAPYHEPTEM C AMPLITUDE 5 PBI5148 - 51 mm11/03/2024 1:58 AM [facility] RESPIRATORY THERAPYHEPTEM C AMPLITUDE 10 MIN56 44 - 61 mm11/03/2024 1:58 AM [facility] RESPIRATORY THERAPYHEPTEM C AMPLITUDE 20 HLL8604 - 67 mm11/03/2024 1:58 AM [facility] RESPIRATORY THERAPYHEPTEM C MAXIMUM CLOT LPJBQPBZ7392 - 69 mm11/03/2024 1:58 AM [facility] Specimen (Source)Anatomical Location / LateralityCollection Method / Volume Collection TimeReceived VdlwBtigo55/19/2025 1:58 AM EDT11/03/2024 1:58 AM EDT Narrative Authorizing ProviderResult TypeResult StatusKy ROBLERO BLOOD ORDERABLESFinal ResultPerforming OrganizationAddressCity/State/ZIP CodePhone Number [facility] [address] [place] [address], [place] * FIBTEM C (11/03/2024 1:58 AM EDT)ComponentValueRef RangeTest MethodAnalysis TimePerformed AtPathologist SignatureFIBTEM C AMPLITUDE 5 XXA936 - 16 mm 11/03/2024 1:58 AM [facility] RESPIRATORY THERAPYFIBTEM C AMPLITUDE 10 TIR809 - 17 mm11/03/2024 1:58 AM EDPRES[facility] RESPIRATORY THERAPYFIBTEM C AMPLITUDE 20 MIN14 6 - 18 mm11/03/2024 1:58 AM EDPRES[facility] RESPIRATORY THERAPYFIBTEM C MAXIMUM CLOT GQTAFAEL393 - 19 mm11/03/2024 1:58 AM [facility] RESPIRATORY THERAPYSpecimen (Source)Anatomical Location / LateralityCollection Method / VolumeCollection TimeReceived FaamSjmfa97/19/2025 1:58 AM EDT11/03/2024 1:58 AM EDT Narrative Authorizing ProviderResult TypeResult StatusCaleb Mary Jane Barbour MDLAB BLOOD ORDERABLESFinal ResultPerforming OrganizationAddressCity/State/ZIP CodePhone Number [facility] [address] [place] [address], * (ABNORMAL) EXTEM C (11/03/2024 1:58 AM EDT)ComponentValueRef RangeTest Method Analysis TimePerformed AtPathologist SignatureEXTEM C CLOTTING [id number] - 73 s 11/03/2024 1:58 AM [facility] RESPIRATORY THERAPYEXTEM C AMPLITUDE 5 CLB7903 - 52 mm11/03/2024 1:58 AM [facility] RESPIRATORY THERAPYEXTEM C AMPLITUDE 10 JDJ1496 - 62 mm11/03/2024 1:58 AM [facility] RESPIRATORY THERAPYEXTEM C AMPLITUDE 20 MIN67 54 - 69 mm11/03/2024 1:58 AM [facility] RESPIRATORY THERAPYEXTEM C MAXIMUM CLOT SAQPBJKO3427 - 72 mm11/03/2024 1:58 AM [facility] RESPIRATORY THERAPYEXTEM C LYSIS INDEX 60 DEM4382 - 100 %11/03/2024 1:58 AM [facility]AP[facility] EXTEM C MAXIMUM LYSIS10(H)0 - 6 %11/03/2024 1:58 AM [facility] RESPIRATORY THERAPYComment:DE^Preliminary ResultSpecimen (Source)Anatomical Location / LateralityCollection Method / VolumeCollection TimeReceived TimeBlood 11/03/2024 1:58 AM EDT11/03/2024 1:58 AM EDT Narrative Authorizing ProviderResult TypeResult StatusKy ROBLERO BLOOD ORDERABLESFinal ResultPerforming OrganizationAddressCity/State/ZIP CodePhone Number [facility] [address] [place] [address], [place] * (ABNORMAL) INTEM C (11/03/2024 1:58 AM EDT)ComponentValueRef RangeTest Method Analysis TimePerformed AtPathologist SignatureINTEM C CLOTTING [id number] - 205 s011/03/2024 1:58 AM [facility] RESPIRATORY THERAPYINTEM C AMPLITUDE 5 OUD3477 - 54 mm11/03/2024 1:58 AM [facility] RESPIRATORY THERAPYINTEM C AMPLITUDE 10 MIN 5746 - 63 mm11/03/2024 1:58 AM [facility] RESPIRATORY THERAPYINTEM C AMPLITUDE 20 MQN9252 - 68 mm11/03/2024 1:58 AM [facility] RESPIRATORY THERAPYINTEM C MAXIMUM CLOT ADTUJEGY1161 - 70 mm11/03/2024 1:58 AM [facility] RESPIRATORY THERAPYINTEM C LYSIS INDEX 60 GST7771 - 100 %11/03/2024 1:58 AM [facility] RES[facility] THERAPY INTEM C MAXIMUM LYSIS12(H)0 - 7 %11/03/2024 1:58 AM [facility] RESPIRATORY THERAPYComment:DE^Preliminary ResultSpecimen (Source)Anatomical Location / LateralityCollection Method / VolumeCollection TimeReceived TimeBlood 11/03/2024 1:58 AM EDT11/03/2024 1:58 AM EDT Narrative Authorizing ProviderResult TypeResult StatusKy ROBLERO BLOOD ORDERABLESFinal ResultPerforming OrganizationAddressCity/State/ZIP CodePhone Number [facility] [address] [place] [address], [place] * (ABNORMAL) Protime-INR (11/03/2024 12:07 AM EDT) Only the most recent of2 resultswithin the time period is included. ComponentValueRef RangeTest MethodAnalysis TimePerformed AtPathologist Signature Tvhtqaf36.9(H)12.3 - 14.8 Cpsfcgq5711/03/2024 12:53 AM [facility] ([place])INR1.17(H)0.90 - 1.1009 12:53 AM [facility] ([place]) Comment: [facility] RECOMMENDED INR FOR [facility]ARF[facility]IN THERAPY CONDITION ?INR PROPHYLAXIS OF VENOUS THROMBOSIS ? 2-3 (HIGH-RISK SURGERY) TREATMENT OF VENOUS THROMBOSIS ? 2-3 TREATMENT OF PULMONARY EMBOLISM ?2-3 PREVENTION OF SYSTEMIC EMBOLISM: ? 2-3 ?ACUTE MYOCARDIAL INFARCTION ?TISSUE HEART VALVES ?VALVULAR HEART DISEASE ?ATRIAL FIBRILLATION ?RECURRENT SYSTEMIC EMBOLISM MECHANICAL HEART VALVE ? 2.5-3.5 FROM: ORAL ANTICOAGULANTS. ??MECHANISM OF ACTION, CLINICAL EFFECTIVENESS, AND OPTIMAL THERAPEUTIC RANGE. ??CHEST 1995;108:231S-246S. Specimen (Source)Anatomical Location / LateralityCollection Method / Volume Collection TimeReceived TimeBloodVenous blood specimen / UnknownExisting Catheter / Zjgjjqa5111/03/2024 12:07 AM EDT11/03/2024 12:27 AM EDT Narrative Authorizing ProviderResult TypeResult StatusDavid Ruddy MDLAB BLOOD ORDERABLES Final ResultPerforming OrganizationAddressCity/State/ZIP CodePhone Number [facility] ([facility]) [address] [place] [address] * Fibrinogen (11/03/2024 12:07 AM EDT)ComponentValueRef RangeTest MethodAnalysis TimePerformed AtPathologist ZyksagorfJuhbkkdxcw895608 - 425 mg/dL11/03/2024 12:53 AM EDTR[facility] ([facility])Specimen (Source)Anatomical Location / LateralityCollection Method / VolumeCollection TimeReceived TimeBloodVenous blood specimen / UnknownExisting Catheter / Zbteqtj3911/03/2024 12:07 AM EDT 11/03/2024 12:27 AM EDT Narrative Authorizing ProviderResult TypeResult StatusDavid Ruddy JOHNSONLAB BLOOD ORDERABLES Final ResultPerforming OrganizationAddressCity/State/ZIP CodePhone Number [facility] ([facility]) [address] [place] [address] * DE AN ELECTIVE ENDOTRACHEAL AIRWAY (11/02/2024 8:56 PM EDT) Narrative Tarik Mayers CAA - 11/02/2024 8:56 PM EDT [place] Nair 11/02/2024 9:06 PM Airway Date/Time: 11/02/2024 8:56 PM Reason: elective Airway not difficult General Information and Staff Patient location during procedure: [place] Anesthesiologist: David Reyes MD Resident/SR. PAYROLL PROCESSOR/CAA: [place] Nair Performed: resident/SR. PAYROLL PROCESSOR/[place] Patient Condition Indications for airway management: anesthesia [...] 1 Number of other approaches attempted: 0 Authorizing ProviderResult TypeResult StatusThomas Eric MDANESTHESIA ORDERABLESFinal Result * Prepare RBC: 1 Units (11/02/2024 8:05 PM EDT) Only the most recent of2 resultswithin the time period is included. ComponentValueRef RangeTest MethodAnalysis TimePerformed AtPathologist Signature PRODUCT [id number] BLOOD BANKUnit [id number] BLOOD BANKUnit ABOOUT BLOOD BANKUnit RhPOSPRESBYTERIAN HOSPITAL BLOOD BANKCrossmatch InterpretationCOMPLAINS REGIONAL MEDICAL [facility] BLOOD BANKDispense StatusTRPRESBYTERIAN HOSPITAL BLOOD BANKBlood Expiration [id number] BLOOD BANKProduct Blood [id number] BLOOD BANKUnit [id number] BLOOD BANK Specimen (Source)Anatomical Location / LateralityCollection Method / Volume Collection TimeReceived FepzOzjpi02/18/2025 8:05 PM EDT Narrative Authorizing ProviderResult TypeResult StatusTomasa Disla [facility] PRODUCT ORDERABLESFinal ResultPerforming OrganizationAddressCity/State/ZIP Code Phone Number [facility] BLOOD [facility] * Type and screen (11/02/2024 8:02 PM EDT)ComponentValueRef RangeTest Method Analysis TimePerformed AtPathologist SignatureABO YekugyqpO88/18/2025 8:42 PM EDPRES[facility] BLOOD BANKRh UbmaBZC7111/02/2024 8:42 PM [facility] BLOOD BANKAb ScrnNEG 11/02/2024 8:42 PM [facility] BLOOD BANKSpecimen (Source)Anatomical Location / LateralityCollection Method / VolumeCollection TimeReceived TimeBloodVenous blood specimen / UnknownExisting Catheter / Hfxywrb5911/02/2024 8:02 PM EDT 11/02/2024 8:02 PM EDT Narrative Authorizing ProviderResult TypeResult StatusChrainer Collins [facility] BLOOD BANK TEST ORDERABLESFinal ResultPerforming OrganizationAddressCity/State/ZIP Code Phone Number [facility] BLOOD BANK * Red Top (11/02/2024 8:00 PM EDT)ComponentValueRef RangeTest MethodAnalysis TimePerformed AtPathologist SignatureExtra TubeHold for add-ons.11/02/2024 10:02 PM [facility] ([facility])Comment:Auto resulted.Specimen (Source) Anatomical Location / LateralityCollection Method / VolumeCollection Time Received TimeBloodVenous blood specimen / Libdwko7411/02/2024 8:00 PM EDT 11/02/2024 8:19 PM EDT Narrative Authorizing ProviderResult TypeResult StatusCaleb T Km ROBLERO BLOOD ORDERABLESFinal ResultPerforming OrganizationAddressSelect [facility]/State/ZIP CodePhone Number [facility] ([facility]) [address] [place] [phone] * (ABNORMAL) Activated clotting time (11/02/2024 4:43 PM EDT) Only the most recent of7 resultswithin the time period is included. ComponentValueRef RangeTest MethodAnalysis TimePerformed AtPathologist Signature Activated Clotting Wsmp162(H)82 - 152 s011/02/2024 5:54 PM EDTR[facility] ([facility])Specimen (Source)Anatomical Location / LateralityCollection Method / VolumeCollection TimeReceived TimeBloodVenous blood specimen / Vyfabqa8511/02/2024 4:43 PM EDT11/02/2024 5:54 PM EDT Narrative Authorizing ProviderResult TypeResult StatusCaleb T Km ROBLERO POINT OF CARE TEST DOCKED DEVICE UNSOLICITED RESULTSFinal ResultPerforming OrganizationAddress City/State/ZIP CodePhone Number [facility] ([facility]) [address] [place] [address] * (ABNORMAL) POCT activated clotting time manually resulted (11/02/2024 4:40 PM EDT) Only the most recent of2 resultswithin the time period is included. ComponentValueRef RangeTest MethodAnalysis TimePerformed AtPathologist Signature Activated Clotting Time OML532(A)82 - 152 secSpecimen (Source)Anatomical Location / LateralityCollection Method / VolumeCollection TimeReceived TimeBlood Venous blood specimen / Rrqurjc5111/02/2024 4:40 PM EDT Narrative Authorizing ProviderResult TypeResult StatusCaleb T Km MDPOINT OF CARE TEST ENTER/EDIT ORDERABLESFinal Result * CORONARY ANGIOGRAPHY, ULTRASOUND - CORONARY, INSTANT WAVE FREE RATIO (IFR) (11/02/2024 2:53 PM EDT)Anatomical RegionLateralityModalityOtherSpecimen (Source)Anatomical Location / LateralityCollection Method / VolumeCollection TimeReceived Time Narrative 11/02/2024 3:18 PM EDT PROCEDURE PHYSICIAN: Wali Collins MD Clinical Presentation: 34 y.o. 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 ??The MLA by IVUS was 2.9 mm2 2) Non-significant iFR of 0.92 and 0.93 Recommendations: 1) ??Continued medical management of non-flow limiting coronary dissection [...] brought to the cardiac catheterization lab . ??Informed written consent was obtained. ??she was prepped and draped in usual sterile fashion. ?? Time-out was performed. ??she was given Versed and fentanyl for sedation. ?? 1% lidocaine was infiltrated over the right femoral artery. ??A 6-Sol[place] Islander sheath was placed in right femoral artery. ?? Coronary angiography was performed with a JL4 and then repeated after IC nitroglycerin 50 mcg x 2. At this time, it was apparent that the LAD had a moderate stenosis and IVUS and iFR were performed. ??Heparin anticoagulation was used for this procedure. ACT was maintained at >250 seconds. A 6 [place] Islander xb3 was engaged to the Lmain. I then advanced a 0.014 ??guidewire to the distal left anterior descending. IVUS imaging was performed with a Refinity catheter after additional IC nitroglycerin and IV nitroglycerin Next, an Omni wire was placed and an iFR performed x2 after normalizing pressures. After completion of the procedure all catheters and wires were removed. ?? The right femoral sheath was removed and manual pressure was applied to obtain hemostasis. Specimens Removed: None Complications: None Coronary Angiogram: Left main: Normal LAD: In the mid vessel there is an area of myocardial bridging followed by a discrete angiographic stenosis. ??The entire segment increased in diameter with IV nitroglycerin. ??On the delayed image there is persistence of contrast along the lateral wall of the LAD in a linear fashion consistent with but not diagnostic for a dissection flap LCX: Normal RCA: not imaged. ??Was imaged one and two days prior Intravascular ultrasound: In the mid vessel there is an atherosclerotic plaque with a MLA of 2.9 mm2 Distal to this the vessel is 3 mm in diameter. ??At the site of plaque there is a discrete dissection. 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 11/02/2024 8:01 AM EDTROO[facility]ELT [facility] ([facility])Comment:Auto resulted.Specimen (Source)Anatomical Location / LateralityCollection Method / VolumeCollection TimeReceived TimeBloodVenous blood specimen / UnknownExisting Catheter / Ihrpdux2111/02/2024 6:15 AM EDT11/02/2024 6:38 AM EDT Narrative Authorizing ProviderResult TypeResult Lena Barbour [facility] BLOOD ORDERABLESFinal ResultPerforming OrganizationAddressCity/State/ZIP CodePhone Number [facility] ([facility]) [address] [place] [address] * (ABNORMAL) POCT activated clotting time docked device (11/01/2024 4:33 PM EDT) ComponentValueRef RangeTest MethodAnalysis TimePerformed AtPathologist SignatureActivated Clotting Time NLF907(A)82 - 152 [facility] ([facility])Specimen (Source)Anatomical Location / LateralityCollection Method / VolumeCollection TimeReceived ArsaZwmyr14/17/2025 4:33 PM EDT Narrative Authorizing ProviderResult TypeResult Lena ROBLERO POINT OF CARE TEST DOCKED DEVICE ORDERABLESFinal ResultPerforming OrganizationAddress City/State/ZIP CodePhone Number [facility]) [address] [place] [address] * CORONARY ANGIOGRAPHY, ULTRASOUND - CORONARY (11/01/2024 1:30 PM EDT)Anatomical RegionLateralityModalityOtherSpecimen (Source)Anatomical Location / LateralityCollection Method / VolumeCollection TimeReceived Time Narrative 11/01/2024 1:59 PM EDT PROCEDURE PHYSICIAN: [...] on TPN presents a direct admission from [facility] with chief complaint of chest pain. ?? She is diagnosed with NSTEMI. ??She had coronary angiogram yesterday but it could not be completed due to radial artery vasospasm. She is now presenting for a repeat coronary angiogram with femoral access. Final Impression: 1) ?? 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 ??Since there is good coronary artery blood flow and the SCAD is non-flow limiting, medical therapy is recommended Plan: 1) optimal med therapy for SCAD 2) Aspirin and plavix DAPT; ??can finish Plavix in 1 to 3 months and continue lifelong aspirin 81 mg daily 3) Lifelong beta-reece is recommended for prevention of recurrent SCAD Procedures Performed: coronary angiogram, IVUS LAD, conscious sedation 49 min, ultrasound guidance for vascular access Procedure Description: The patient was brought to the cardiac catheterization lab in a fasting state. ??Informed written consent was obtained. ??she was prepped and draped in usual sterile fashion over the bilateral groins. ??Time-out was performed. ??she was given Versed and fentanyl for sedation. ?? 1% lidocaine was infiltrated over the right femoral artery. ??A 5-Sol[place] Islander Terumo sheath was placed in right femoral artery. ??Limited femoral angiogram showed adequate placement in the right common femoral artery. Coronary angiogram was performed with a JL4 to engage the left main and a JR4 to engage the RCA. Coronary angiogram was performed in multiple orthogonal views. At this time, it was apparent that the mid LAD had intermediate stenosis. ?? I decided to proceed with PCI. Heparin anticoagulation was used for this procedure. ACT was maintained at >250 seconds. A 5 Solomon Islander Cordis XB 3.0 guide was engaged to the left main. I decided to proceed with IVUS. ??I then advanced a Runthrough wire to the distal left anterior descending. Next, I advanced a Appier IVUS catheter. ??IVUS imaging was performed and automated pullback was performed. ?? Based on IVUS, we identified focal SCAD (type 3) with intramural hematoma. All catheters and wires were removed. ??The right femoral sheath will be removed once ACT is within range and manual pressure will be applied to obtain hemostasis. Specimens Removed: None Complications: None Coronary Angiogram: Left main: large trifurcating left main which is patent LAD: the LAD is a large vessel the mid segment of the LAD has a focal 40 to 50% stenosis. ??This area was further interrogated with IVUS. ??IVUS imaging showed evidence SCAD with intramural hematoma in a focal segment. Ramus: Patent LCX: normal; ??large and dominant left circumflex coronary artery RCA: small, nondominant vessel with diffuse tapering throughout the mid segment with very small caliber Study Details NSTEMI Authorizing ProviderResult TypeResult StatusCaleb [facility] CARDIAC CATH PROCEDURESFinal Result * (ABNORMAL) Anti-Xa (Heparin Level) (11/01/2024 6:04 AM EDT) Only the most recent of4 resultswithin the time period is included. ComponentValueRef RangeTest MethodAnalysis TimePerformed AtPathologist Signature Anti-Xa (Heparin)0.27(L)0.3 - 0.7 IU/mL11/01/2024 6:37 AM [facility] ([place])Comment:Rivaroxaban and Apixaban will interfere with the anti Xa assay used to monitor UFH and LMWH.Specimen (Source)Anatomical Location / Laterality Collection Method / VolumeCollection TimeReceived TimeBloodBlood sample taken from central line / UnknownExisting Catheter / Vdurwbs8911/01/2024 6:04 AM EDT 11/01/2024 6:15 AM EDT Narrative Authorizing ProviderResult TypeResult StatusKy ROBLERO BLOOD ORDERABLESFinal ResultPerforming OrganizationAddressCity/State/ZIP CodePhone Number [facility] ([facility]) [address] [place] [address] * (ABNORMAL) Toxicology Screen, Urine (11/01/2024 2:12 AM EDT)ComponentValueRef RangeTest MethodAnalysis TimePerformed AtPathologist SignatureBarbiturates AecpoybrJqmarywi55/17/2025 2:57 AM [facility] ([facility]) BenzodiazepinesPositive(A)Qndnalud67/17/2025 2:57 AM [facility] ([facility])MoregddlfgboTktrnwliMatflhnx37/17/2025 2:57 AM [facility] ([facility])HpngmsxuyHpqfnnqgKkhejjma11/17/2025 2:57 AM [facility] ([facility])VsowesrtvjXfeobgpxPstytzgm26/17/2025 2:57 AM [facility] ([facility])NtqtdfukwdkpfLlgtptpwGwfrtewo64/17/2025 2:57 AM [facility] ([facility])OpiatesPositive(A)Dkcclxfo57/17/2025 2:57 AM [facility] ([facility])NlblilbKghltigtZujstdib29/17/2025 2:57 AM [facility] ([facility])Amphetamines/YrzeyiwawnhcjdkOgcpulteWdwtsrvt60/17/2025 2:57 AM [facility] ([facility])XqznydjiczkMstlwxwzZulnddwd39/17/2025 2:57 AM [facility] ([facility])Specimen (Source)Anatomical Location / Laterality Collection Method / VolumeCollection TimeReceived TimeUrineUrine specimen obtained by clean catch procedure / UnknownNon-blood Collection / Unknown 11/01/2024 2:12 AM EDT11/01/2024 2:18 AM EDT Narrative [facility] ([facility]) - 11/01/2024 2:57 AM EDT Unconfirmed screening results should only be used for medical purposes. Authorizing ProviderResult TypeResult StatusKy ROBLERO URINE ORDERABLESFinal ResultPerforming OrganizationAddressCity/State/ZIP CodePhone Number [facility] ([place]) [address] [place] [address] * CORONARY ANGIOGRAPHY, LEFT HEART CATH (10/31/2024 7:34 PM EDT)Anatomical RegionLateralityModalityOtherSpecimen (Source)Anatomical Location / Laterality Collection Method / VolumeCollection TimeReceived Time Narrative 10/31/2024 7:51 PM EDT PROCEDURE PHYSICIAN: Tino Gilmore MD . Indications: Juan Garcia is a 34 y.o. female who is admitted with chest pain and elevated troponin as well as EKG changes. ??She was diagnosed NSTEMI and referred for cardiac catheterization. Assistants: Cardiovascular Fellow Dr Janet Soto. Procedure Performed: Coronary angiogram. Left heart catheterization. Administration of intraarterial nitroglycerin to treat radial artery spasm. Access into the left radial artery under ultrasound guidance. Methods: ??Procedure was explained to the patient with risks and benefits; she signed informed consent. ??she was brought to the metallurgical lab technician in a fasting state. The left wrist area was prepped and draped in usual fashion. Micropuncture technique was used for access in the radial artery. ??A 5-Solomon Islander x 11 cm sheath was placed. ??Verapamil was given through the sheath, and heparin was administered intravenously. ?? A 5 [place] Islander JR4 diagnostic catheter was advanced and this was used to perform left heart catheterization with measurement of pressures. ?? Pullback across aortic valve was performed with measurement of pressures. The catheter was used to attempt engagement of the right coronary artery however this was not possible. ??At this point the patient started developing radial artery spasm. ??This was treated by administration of intra-arterial nitroglycerin. ??The catheter was then downsized to a 4 Solomon Islander JR4 diagnostic catheter however this also was not able to engage the right coronary artery. ??Catheter was exchanged to a ??JR4 diagnostic catheter which could not engage the left coronary artery. ??Catheter was exchanged to a 4 Solomon Islander JL 3.5 diagnostic catheter which eventually was able to engage the left coronary artery. ??Angiography was performed in multiple views. Catheter was exchanged over the wire to a 4 [place]er 3DRC catheter. ?? Multiple attempts were made to engage the right coronary artery however these failed. ??Nonselective aortic root angiography was performed however there was no evidence of opacification of the origin of the right coronary artery. ??At this point the patient developed additional spasm in the radial artery with significant pain which prevented further manipulation of the catheter. ?At this point the catheter was retracted. Intra-arterial nitroglycerin was administered through the radial sheath. ?? The procedure was concluded. Hemostasis was achieved by TR band in the radial artery. ??she tolerated the procedure well and was transferred back to the hospital room. Hemodynamic Data: ?? LV: 159/9, 19 AO: 159/92 (121) Coronary angiography: This is a left-dominant circulation. Left Main: This arises from the left coronary cusp. ??It bifurcates into left anterior descending and circumflex vessels. ??This is angiographically normal. Left anterior descending: ?Mild disease is noted in the mid segment of the LAD. ??The rest of the LAD is free of disease. Circumflex: ?? This is a dominant vessel. ??This is angiographically normal. Right coronary artery: ? There was inability to engage the right coronary artery and the origin of the artery was not apparent on nonselective aortic root injections. 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 Impression/Findings: Mild [...] Study Details NSTEMI (non-ST elevated myocardial infarction) ([facility]) [I21.4] Authorizing ProviderResult TypeResult StatusCaleb [facility]mSouth[facility] CARDIAC CATH PROCEDURESFinal Result * LIMITED ECHO (TTE) W/ COLOR FLOW AND IMAGING AGENT (10/31/2024 11:40 AM EDT) Anatomical RegionLateralityModalityOtherSpecimen (Source)Anatomical Location / LateralityCollection Method / VolumeCollection TimeReceived Time10/31/2024 11:16 AM EDT Narrative 10/31/2024 12:44 PM EDT 1 1 [facility] [address] [place] [address] [phone] (fax) Echocardiogram-[facility] Name: JUAN GARCIA Study Date: 10/31/2024 11:16 AM B/P: 106 mmHg/67 mmHg HR: 70 bpm Date of : 1990 Location: [facility] Height: 66 in. Age: 34 year(s) [...] Procedure Staff Reading Group: [facility] [employer] Oven Operator: DAVID Kearney, RDCS ??Ordering Physician: [place] BARBOUR ?? Wall Motion Scores -1 - hyperkinesia, 0 - not evaluated, 1 - normal, 2 - hypokinesia, 3 - akinesia, 4 - dyskinesia Procedure Note Mitul Moya MD - 10/31/2024 1 1 [facility] [address] [place] [address] [phone] (fax) Echocardiogram-[facility] Name: JUAN GARCIA Study Date: 10/31/2024 11:16 AM B/P: 106 mmHg/67 mmHg HR: 70 bpm Date of : 1990 Location: [facility] Height: 66 in. Age: 34 year(s) [...] Procedure Staff Reading Group: [facility] [employer] Oven Operator: DAVID Kearney, RDCS Ordering Physician: [place] BARBOUR Wall Motion Scores -1 - hyperkinesia, 0 - not evaluated, 1 - normal, 2 - hypokinesia, 3 - akinesia, 4 - dyskinesia Authorizing ProviderResult TypeResult Lena Barbour [facility] ECHO PROCEDURES Final Result * Hemoglobin A1c (10/31/2024 6:27 AM EDT)ComponentValueRef RangeTest Method Analysis TimePerformed AtPathologist SignatureHemoglobin A1C4.54.0 - 6.0 % 10/31/2024 1:13 PM [facility] ([facility])Estimated Average Lbahmin70 mg/dL10/31/2024 1:13 PM [facility] ([facility])Specimen (Source) Anatomical Location / LateralityCollection Method / VolumeCollection Time Received TimeBloodBlood sample taken from central line / UnknownExisting Catheter / Jzraykp3610/31/2024 6:27 AM EDT10/31/2024 7:01 AM EDT Narrative Authorizing ProviderResult TypeResult Lena ROBLERO BLOOD ORDERABLESFinal ResultPerforming OrganizationAddressCity/State/ZIP CodePhone Number [facility] ([facility]) [address] [place] [address] * (ABNORMAL) Lipid panel (10/31/2024 6:27 AM EDT)ComponentValueRef RangeTest MethodAnalysis TimePerformed AtPathologist UzvretqzbZvunngxfpuxyx94<150 mg/dL 10/31/2024 9:31 AM [facility] ([facility])Comment: TRIGLYCERIDE REFERENCE RANGE: 20 YEARS AND OLDER ?CARDIOVASCULAR RISK LESS THAN 150 mg/dL ? LOW RISK 150 TO 199 mg/dL ?BORDERLINE RISK 200 mg/dL AND GREATER ? HIGH RISK Xxwfexoazpx961(L)120 - 200 mg/dL10/31/2024 9:31 AM [facility] ([facility]) LDL Avfkkkucva432 - 160 mg/dL10/31/2024 9:31 AM [facility] ([facility])HDL 4323 - 92 mg/dL10/31/2024 9:31 AM [facility] ([facility])Non HDL Xrctdqzcwfc3458/16/2025 9:31 AM [facility] ([facility])Total VLDL-C170 - 40 mg/dL10/31/2024 9:31 AM [facility] ([facility])Cholesterol/HDL Ratio2.7 mg/dL10/31/2024 9:31 AM [facility] ([facility])Specimen (Source)Anatomical Location / LateralityCollection Method / VolumeCollection TimeReceived Time BloodBlood sample taken from central line / UnknownExisting Catheter / Unknown 10/31/2024 6:27 AM EDT10/31/2024 7:11 AM EDT Narrative Authorizing ProviderResult TypeResult StatusKy ROBLERO BLOOD ORDERABLESFinal ResultPerforming OrganizationAddressCity/State/ZIP CodePhone Number [facility] ([facility]) [address] [place] [address] * TSH3 Reflex to FT4 (10/30/2024 7:11 PM EDT)ComponentValueRef RangeTest Method Analysis TimePerformed AtPathologist SignatureTSH3.460.34 - 5.60 mIU/L 10/30/2024 8:01 PM [facility] ([facility])Specimen (Source)Anatomical Location / LateralityCollection Method / VolumeCollection TimeReceived Time BloodVenous blood specimen / UnknownExisting Catheter / Yrxewlc4710/30/2024 7:11 PM EDT10/30/2024 7:18 PM EDT Narrative Authorizing ProviderResult TypeResult StatusEast [facility] CenterLAB BLOOD ORDERABLES Final ResultPerforming OrganizationAddressCity/State/ZIP CodePhone Number [facility]) [address] [place] [address] * (ABNORMAL) aPTT - baseline (10/30/2024 7:11 PM EDT)ComponentValueRef RangeTest MethodAnalysis TimePerformed AtPathologist OtldjcpdabTRV83.0(H)25.0 - 35.0 Ubjtozw8110/30/2024 7:48 PM [facility] ([facility])Comment:Clinical significance of the APTT is questionable in the presence of heparin.Specimen (Source)Anatomical Location / LateralityCollection Method / VolumeCollection TimeReceived TimeBloodVenous blood specimen / UnknownExisting Catheter / Ujmqoyr8110/30/2024 7:11 PM EDT10/30/2024 7:18 PM EDT Narrative Authorizing ProviderResult TypeResult StatusNewyork-Presbyterian [facility] Hospitalcharlotte [facility]burgLAB BLOOD ORDERABLES Final ResultPerforming OrganizationAddressCity/State/ZIP CodePhone Number [facility] ([facility]) [address] [place] [address] * B-type natriuretic peptide (10/30/2024 7:11 PM EDT)ComponentValueRef RangeTest MethodAnalysis TimePerformed AtPathologist OjqicxorhHJQ540 - 100 pg/mL 10/30/2024 7:49 PM [facility] ([facility])Specimen (Source)Anatomical Location / LateralityCollection Method / VolumeCollection TimeReceived Time BloodVenous blood specimen / UnknownExisting Catheter / Dhuernj8810/30/2024 7:11 PM EDT10/30/2024 7:18 PM EDT Narrative Authorizing ProviderResult TypeResult StatusMemarlon Luna CNPLAB BLOOD ORDERABLES Final ResultPerforming OrganizationAddressCity/State/ZIP CodePhone Number [facility]) [address] [place] [address] from Last 3 Months Insurance Advance Directives * Full Code (Latest Code Status on File) Date ActivatedDate RpgvabblndfCicrbirs93/1/2025 8:05 11/17/2024 4:42 PM * Full Code Date ActivatedDate InactivatedComments11/09/2024 12:31 PM11/13/2024 4:34 PM * Full Code Date ActivatedDate InactivatedComments10/30/2024 7:14 PM11/07/2024 7:10 PM * Full Code Date ActivatedDate InactivatedComments08/16/2024 9:21 PM08/20/2024 5:55 PM Care Teams Team MemberRelationshipSpecialtyStart DateEnd Date Britt Alas MD [address] [facility] [address] [place] [address] PCP - GeneralFamily Medicine08/17/24
--- OUTSIDE RECORDS SUMMARY | 2024-12-06 12:14 | XMS_ITS | Clinical Summary ---
Author Organization [facility] Address [address] [place] [address] Phone Care Team Providers Care Repairer Cylinder Heads Name Role Phone Generic Provider, No Assigned Pcp MD Primary Car e Provider Unavailable Allergies Active AllergyReactionsCriticalityNoted DateCommentsCodeineNausea/vomitingMedium 12/21/2022Nsaids (Non-Steroidal Anti-Inflammatory Drug)Nausea/vomitingLow 12/21/2022 Medications MedicationSigDispense QuantityRefillsLast FilledStart DateEnd DateStatus albuterol 90 mcg/actuation inhaler Inhale 2 puffs every 4 hours if needed for wheezing or shortness of breath. Active busPIRone (Buspar) 10 mg tablet Take 1 tablet (10 mg) by mouth 3 times a day.11/10/2022ctive escitalopram (Lexapro) 20 mg tablet Take 1 tablet (20 mg) by mouth once daily.Active ferrous sulfate 325 (65 Fe) MG tablet Take 1 tablet by mouth once daily with breakfast.Active hydrOXYzine HCL (Atarax) 25 mg tablet Take 1 tablet (25 mg) by mouth once daily as needed for anxiety.11/13/2022ctive levothyroxine (Synthroid, Levoxyl) 100 mcg tablet Take 1 tablet (100 mcg) by mouth once daily.04/07/2021ctive liothyronine (Cytomel) 5 mcg tablet Take 1 tablet (5 mcg) by mouth once daily.09/11/2019Active mirtazapine (Remeron) 15 mg tablet Take 2 tablets (30 mg) by mouth once daily at bedtime. 30 MG CBZYRGXDN73/26/2023 Active polyethylene glycol (Glycolax, Miralax) 17 gram/dose powder Mix 17 g of powder and drink 2 times a day.06/23/2022ctive topiramate (Topamax) 100 mg tablet Take 1 tablet (100 mg) by mouth 2 times a day. HEADACHESActive acetaminophen (Tylenol) 325 mg tablet Indications:Median arcuate ligament syndromeTake 2 tablets (650 mg) by mouth every 4 hours if needed for mild pain (1 - 3).ctive famotidine (Pepcid) 20 mg tablet Indications:Median arcuate ligament syndromeTake 1 tablet (20 mg) by mouth 2 times a day. 60 tablet 03/10/2023ctive nutritional drink (Ensure High Protein) liquid Indications:Median arcuate ligament syndromeTake 90 bottles by mouth every 30 (thirty) days. Take one 237mL bottles TID with meals for 30 days 237 mL 03/10/2023ctive metoclopramide (Reglan) 10 mg tablet Indications:Abdominal pain,Nausea and vomiting, unspecified vomiting typeTake 0.5 tablets (5 mg) by mouth 3 times a day with meals. 90 tablet ctive pantoprazole (ProtoNix) 40 mg EC tablet Indications:Nausea and vomiting, unspecified vomiting typeTake 1 tablet (40 mg) by mouth once daily in the morning. Take before meals. 30 tablet 06/07/2023ctive methocarbamol (Robaxin) 750 mg tablet Take 1 tablet (750 mg) by mouth 3 times a day.Active oxyCODONE-acetaminophen (Percocet) 5-325 mg tablet Indications:Generalized abdominal painTake 1 tablet by mouth every 4 hours if needed for severe pain (7 - 10). 20 tablet 07/03/2023ctive ondansetron ODT (Zofran-ODT) 4 mg disintegrating tablet Indications:Median arcuate ligament syndromeTake 1 tablet (4 mg) by mouth every 8 hours if needed for nausea. 30 tablet ctive fentaNYL (Duragesic) 25 mcg/hr patch Place 1 patch on the skin every 3rd day. 37 mcgActive Active Problems ProblemNoted DateDiagnosed DateEpigastric pain06/30/2023cute renal failure superimposed on chronic kidney cyjxays3606/29/20237487Iblsfsatqnd73/14/2024Heart bxeqjoy1906/29/2023bdominal pain03/16/2023Nausea and tdsvritn68/19/2024OSA (obstructive sleep apnea)03/05/20231220Mwlmmk19/19/9102Vqapkaw78/19/2024 Ixzjdeoahnjjnb64/19/4020Zgijvkiqhv96/19/2024Median arcuate ligament syndrome 02/18/2023 Encounters DateTypeDepartmentCare XekzSbbaclffsdk38/26/2025 11:00 AM EDT - 10/10/2024 11:59 PM EDTHospital Encounter [facility] [address] [place] [address] Discharge Disposition: Home10/09/2024 10:15 AM EDTTelemedicine [facility] [address] [place] [id number] Jerad Magaña MD Median arcuate ligament syndrome (Primary Dx) Discharge Disposition: Home10/06/2024 9:00 AM EDTAncillary Procedure [facility] [address] [place] [address] Median arcuate ligament zgodkeke07/04/2025Orders Only [facility] [address] [place] [phone] Crystal Monique, DEE Median arcuate ligament syndrome (Primary Dx)from Last 3 Months Family History Medical HistoryRelationNameCommentsAsthmaBrotherTom ArtinoCOPDMaternal GrandfatherCharles HumesCancerMaternal GrandfatherCharles HumesHeart disease Maternal GrandfatherCharles HumesKidney diseaseMaternal GrandfatherCharles Efra HypertensionMaternal GrandmotherGrandpaDiabetesMotherEdna ArtinoHypertension MotherEdna ArtinoAnesthesia problemsPaternal GrandfatherOrlando ArtinoAnesthesia related problemsPaternal GrandfatherOrlando ArtinoArthritisPaternal Grandfather Elan ArtinoHypertensionPaternal GrandfatherOrlando ArtinoCOPDPaternal GrandmotherGrandmotherDiabetesPaternal GrandmotherGrandmotherRelationNameStatus CommentsBrotherTom ArtinoMaternal GrandfatherCharles HumesMaternal Grandmother GrandpaMotherEdna ArtinoPaternal GrandfatherOrlando ArtinoPaternal Grandmother Grandmother Social History Tobacco UseTypesPacks/DayYears UsedDateSmoking Tobacco: NeverSmokeless Tobacco: Never Tobacco Cessation:Counseling Given: Not Answered Alcohol UseStandard Drinks/WeekCommentsNot Currently0 (1 standard drink = 0.6 oz pure alcohol)B1300 Health LiteracyAnswerDate RecordedHow often do you need to have someone help you when you read instructions, pamphlets, or other written material from your doctor or pharmacy?Never06/30/2023HC UtilitiesAnswerDate RecordedIn the past 12 months has the [place], gas, oil, or water [employer] threatened to shut off services in your home?No06/30/2023Humiliation, Afraid, Rape, and Kick questionnaireAnswerDate RecordedWithin the last year, have you been afraid of your partner or ex-partner?No06/30/2023Within the last year, have you been humiliated or emotionally abused in other ways by your partner or ex-partner?No06/30/2023Within the last year, have you been kicked, hit, slapped, or otherwise physically hurt by your partner or ex-partner?No06/30/2023Within the last year, have you been raped or forced to have any kind of sexual activity by your partner or ex-partner?No06/30/2023Social Connection and Isolation Panel AnswerDate RecordedIn a typical week, how many times do you talk on the phone with family, friends, or neighbors?Twice a week06/30/2023How often do you get together with friends or relatives?Twice a week06/30/2023How often do you attend orthodoxy or scientologist services?More than 4 times per year06/30/2023o you belong to any clubs or organizations such as orthodoxy groups, unions, fraternal or athletic groups, or school groups?No06/30/2023How often do you attend meetings of the clubs or organizations you belong to?Never06/30/2023re you , , , , never , or living with a partner? 06/30/2023Overall Financial Resource Strain (CARDIA)AnswerDate RecordedHow hard is it for you to pay for the very basics like food, housing, medical care, and heating?Not hard at all06/30/2023HQ-2AnswerDate RecordedPatient Health Questionnaire-2 Bydwi862Finmountain point medical center [place] [facility] - Occupational Stress QuestionnaireAnswerDate RecordedDo you feel stress - tense, restless, nervous, or anxious, or unable to sleep at night because yourmind is troubled all the time - these days?Rather much06/30/2023Exercise Vital Sign AnswerDate RecordedOn average, how many days per week do you engage in moderate to strenuous exercise (like a brisk walk)?3 days06/30/2023On average, how many minutes do you engage in exercise at this level?10 min06/30/2023Hunger Vital SignAnswerDate RecordedWithin the past 12 months, you worried that your food would run out before you got the money to buymore.Never true06/30/2023Within the past 12 months, the food you bought just didn't last and you didn't have money to get more.Never true06/30/2023RAPARE - TransportationAnswerDate RecordedIn the past 12 months, has lack of transportation kept you from medical appointments or from getting medications?No06/30/2023In the past 12 months, has lack of transportation kept you from meetings, work, or from getting things needed for daily living?No06/30/2023Housing Stability Vital SignAnswerDate RecordedIn the last 12 months, was there a time when you were not able to pay the mortgage or rent on time?No06/30/2023In the last 12 months, how many places have you lived?In the last 12 months, was there a time when you did not have a steady place to sleep or slept in [place] (including now)?No 06/30/2023UDIT-CAnswerDate RecordedQ1: How often do you have a drink containing alcohol?Never10/09/2024Q2: How many drinks containing alcohol do you have on a typical day when you are drinking?Patient does not drink10/09/2024Q3: How often do you have six or more drinks on one occasion?Never10/09/2024Comments UnknownSex and Gender InformationValueDate RecordedSex Assigned at BirthFemale 02/23/2023 4:19 AM ESTLegal JhqUaymqi10/26/2022 6:26 PM ESTGender IdentityFemale 03/02/2023 2:54 PM ESTSexual NqygqzctusaNpktyxno86/16/2024 2:54 PM EST Last Filed Vital Signs Vital SignReadingTime TakenCommentsBlood Mragthdi21/57007/03/2023 7:00 AM EDT Ibgxp95662/18/2024 7:00 AM DRRJafuxifsdxl72 ??C (98.6 ??F)07/03/2023 7:00 AM EDT Respiratory Frjw580707/03/2023 7:00 AM EDTOxygen Filhqhwxqr933%07/03/2023 7:00 AM EDTInhaled Oxygen Concentration--Xwzjzr64.2 kg (168 lb)06/29/2023 6:16 PM EDT Fexolc861.6 cm (5' 6 )06/29/2023 6:16 PM EDTBody Mass Index27.1205 6:16 PM EDT Plan of Treatment Health MaintenanceDue DateLast ZpnmGcczclicVdcnialekbvjje08/17/1990HIV Screening 1989Lipid Panel1989Yearly Adult Yayrkktl69/17/1990MMR Vaccines (1 of 1 - Standard series)1990Hepatitis C Xretsygxe83/17/2008Hepatitis A Vaccines (1 of 2 - Risk 2-dose series)2008Hepatitis B Vaccines (1 of 3 - 19+ 3-dose series)2008Pneumococcal Vaccine: Pediatrics and At-Risk Adult Patients (1 of 2 - PCV)2008Zoster Vaccines (1 of 2)2008HPV/Cotest 2010HPV Vaccines (1 - Risk 3-dose Standard series)2016COVID-19 Vaccine (2 - Woo risk series)07/21//ervical Cancer Screening 4Pap Smear/07/2020TSH Level09/11/903384/3Creatinine Level/, 07/01/2023, 06/30/2023, Additional history exists Potassium Level/, 07/01/2023, 06/30/2023, Additional history existsInfluenza Vaccine (#1)/, 11/16/2021, 01/01/2021, Additional history existsDiabetes Yogtwewcq21/06/546185/07/2024, 08/19/2024, 08/18/2024, Additional history existsDTaP/Tdap/Td Vaccines (2 - Td or Tdap) HIB VaccinesAged OutNo longer eligible based on patient's age to complete this topicIPV VaccinesAged OutNo longer eligible based on patient's age to complete this topicMeningococcal VaccineAged OutNo longer eligible based on patient's age to complete this topicRotavirus VaccinesAged Out No longer eligible based on patient's age to complete this topic Medical Devices ImplantedTypeAreaManufacturerDevice IdentifierShelf Expiration DateModel / Serial / LotMembrane, Seprafilm, 5 X 6 In - [id number] Implanted:Qty: 1 on 03/05/2023 by [facility]ad [facility]N/A: AbdomenHUGH CHATHAM MEMORIAL [id number] / / [id number] Procedures Procedure NamePriorityDate/TimeAssociated DiagnosisCommentsCT TRANSFER OF OUTSIDE JHTXZBkndzzh91/26/2025 11:03 AM EDT VASC US MESENTERIC ARTERY DUPLEX THTXJSJDKeztwjy51/22/2025 9:40 AM EDT Median arcuate ligament syndrome POCT ACWAWYOErlsjxj47/18/2024 7:17 AM EDT RENAL FUNCTION AIYRUZevkzbc31/17/2024 6:47 AM EDT from Last 3 Months or Most Recently Relevant to Health Maintenance Results * CT transfer of outside films (10/10/2024 11:03 AM EDT)Specimen (Source) Anatomical Location / LateralityCollection Method / VolumeCollection Time Received Time Narrative IMAGING - 10/10/2024 11:04 AM EDT Outside images for comparison or treatment purposes, not interpreted by Radiologists. Authorizing ProviderResult TypeResult StatusWoonimisha Magaña MDIMG CT PROCEDURES Final ResultPerforming OrganizationAddressCity/State/ZIP CodePhone Number IMAGING * Vascular US mesenteric artery duplex complete (10/06/2024 9:40 AM EDT) Anatomical RegionLateralityModalityAbdomenEchocardiographySpecimen (Source) Anatomical Location / LateralityCollection Method / VolumeCollection Time Received Time10/06/2024 9:13 AM EDT Narrative 10/06/2024 1:59 PM [place] ?[place] [address] ? Vascular Lab Report VASC US MESENTERIC ARTERY DUPLEX COMPLETE Patient Name: ?JUAN MRenetta ATKINSONY ? Reading Physician: [id number] Rivera ?MD Study Date: ?10/06/2024 ? Ordering Provider: [id number] JERAD MAGAÑA MRN/PID: ? [id number] ?Fellow: Accession#: ?[id number] ?Technologist: ?Leia Degroot RVT Date of /Age: 2 1990 / 34 ?Technologist 2: ? years Gender: ?F ? Admission Status: ??Outpatient ?[facility] ? 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 79289 Mesenteric Duplex scan ` CONCLUSIONS: Mesenteric: Superior mesenteric artery demonstrates no evidence of hemodynamically significant stenosis and the inferior mesenteric artery appears widely patent. The patient was NPO for this study. Unable to visualize the celiac, hepatic, and splenic arteries due to extensive bowel gas; attempted in multiple positions. Technically difficult exam due to bowel gas. Imaging & Doppler Findings: AORTA ?PSV Mid ??87.3 cm/s Aorta PSV ?87 cm/s SMA Origin PSV 100 cm/s SMA Prox PSV ?? 169 cm/s SMA Mid PSV ?131 cm/s SMA Dist PSV ?? 61 cm/s KEELY Prox PSV ?? 118 cm/s [id number] Rivera MD Final Procedure Note Ann Rivera MD, MS - 10/06/2024 [place] [address] Vascular Lab Report [facility] US MESENTERIC ARTERY DUPLEX COMPLETE Patient Name: JUAN Oneil Physician: [id number] Viera MD Study Date: 10/06/2024 Ordering Provider: [id number] BARNETT MRN/PID: [id number] Fellow: Technologist: Leia Taylor Date of /Age: 2 1990 Technologist 2: years Gender: F Admission Status: Outpatient Location 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 CPT Codes: 48595 Mesenteric Duplex scan ` CONCLUSIONS: Mesenteric: Superior mesenteric artery demonstrates no evidence of hemodynamically significant stenosis and the inferior mesenteric arteryappears [...] 61 cm/s KEELY Prox PSV 118 cm/s [id number] Ann Rivera MD Final Authorizing ProviderResult TypeResult StatusWtramaine Magaña [facility]ASCULAR PROCEDURESFinal Result * (ABNORMAL) POCT GLUCOSE (07/03/2023 7:17 AM EDT)ComponentValueRef RangeTest MethodAnalysis TimePerformed AtPathologist SignaturePOCT Kvtjjzl464(H)74 - 99 mg/dL07/03/2023 7:24 AM [facility] LABSpecimen (Source) Anatomical Location / LateralityCollection Method / VolumeCollection Time Received TimeBloodCapillary blood specimen / Yuvfvzl9907/03/2023 7:17 AM EDT 07/03/2023 7:24 AM EDT Narrative Authorizing ProviderResult TypeResult StatusCygopi ROBLERO POINT OF CARE TEST DOCKED DEVICE UNSOLICITED RESULTSFinal ResultPerforming OrganizationAddress City/State/ZIP CodePhone Number FORMERLY NAMED [facility] [address] [place], [place] [id number] * (ABNORMAL) Renal Function Panel (07/02/2023 6:47 AM EDT)ComponentValueRef RangeTest MethodAnalysis TimePerformed AtPathologist YrygodcflCoblkok701(H)65 - 99 mg/dL07/02/2023 7:53 AM [facility] OJFHvrlye940125 - 145 mmol/L07/02/2023 7:53 AM [facility] LABPotassium3.93.4 - 5.1 mmol/L07/02/2023 7:53 AM [facility] YICRyukigry63575 - 107 mmol/L07/02/2023 7:53 AM [facility] SGAUyoinozwmjj08(L)24 - 31 mmol/L07/02/2023 7:53 AM [facility] LABUrea Infzjnhx130 - 25 mg/dL07/02/2023 7:53 AM [facility] LABCreatinine0.700.40 - 1.60 mg/dL07/02/2023 7:53 AM [facility] LABeGFR>90>60 mL/min/1.73m*2 07/02/2023 7:53 AM [facility] LABComment: Calculations of estimated GFR are performed using the 2020 CKD-EPI Study Refit equation without therace variable for the IDMS-Traceable creatinine methods. https://jasn.asnjournals.org/content/early/ASN.1636757586 Calcium8.68.5 - 10.4 mg/dL07/02/2023 7:53 AM [facility] Phosphorus4.02.5 - 4.5 mg/dL07/02/2023 7:53 AM [facility] Albumin4.03.5 - 5.0 g/dL07/02/2023 7:53 AM [facility] LABAnion Gap 11<=19 mmol/L07/02/2023 7:53 AM [facility] LABSpecimen (Source) Anatomical Location / LateralityCollection Method / VolumeCollection Time Received TimeBloodVenous blood specimen / Bypcxds0707/02/2023 6:47 AM EDT 07/02/2023 6:58 AM EDT Narrative Authorizing ProviderResult TypeResult StatusOludatelma ROBLERO BLOOD ORDERABLESFinal ResultPerforming OrganizationAddressCity/State/ZIP CodePhone Number [facility] [address] [place] [address] from Last 3 Months or Most Recently Relevant to Health Maintenance Insurance Advance Directives For more information, please contact: [phone] (Available ) * Full Code (Latest Code Status on File) Date ActivatedDate InactivatedComments03/05/2023 2:37 PMQuestionAnswerComments Plan of Care:* Code Status Discussion Completed Decision Maker:* Patient Care Teams Team MemberRelationshipSpecialtyStart DateEnd Date Generic Provider, No Assigned Pcp, [place] [address] PCP - GeneralGeneral Practice06/29/23
--- OUTSIDE RECORDS SUMMARY | 2024-12-06 12:14 | XMS_ITS | Clinical Summary ---
Author Organization [facility] Address [address], [address] [place] [address] Care Team Providers Care Epic Specialist Name Role Phone Thomas Alas MD Primary Care Provider [phone] Allergies Active AllergyReactionsCriticalityNoted DateCommentsAdhesive TapeOther (See Comments)Rofgpp2502/07/2020 Sensitive to certain adhesive tapes. Redness and itchy. CodeineNausea And XczmvhkpRyu12/09/2025NsaidsOther (See Comments)01/29/2022 Gastric bypass S/p RYGB S/p RYGB Oxycodone-RcdbnqhxumcepVdwfikowomhWwbl50/30/2023Wound Dressing AdhesiveOther (See Comments)Ettgls5802/07/2020 Sensitive to certain adhesive tapes. Redness and itchy. Medications MedicationSigDispense QuantityRefillsLast FilledStart DateEnd DateStatus levothyroxine (SYNTHROID) 75 MCG tablet Take 1 tablet by mouth DailyActive topiramate (TOPAMAX) 100 MG tablet Take 0.5 tablets by mouth 2 times dailyActive DULoxetine (CYMBALTA) 30 MG extended release capsule Take 1 capsule by mouth 2 times dailyActive liothyronine (CYTOMEL) 5 MCG tablet Take 1 capsule by mouth dailyActive escitalopram (LEXAPRO) 20 MG tablet Take 1 tablet by mouth dailyActive promethazine (PHENERGAN) 25 MG tablet Take 1 tablet by mouth every 6 hours as needed for NauseaActive busPIRone (BUSPAR) 10 MG tablet Take 1 tablet by mouth 2 times dailyActive mirtazapine (REMERON) 15 MG tablet Take 1 tablet by mouth nightlyActive pantoprazole sodium (PROTONIX) 40 MG PACK packet Take 1 packet by mouth every morning (before breakfast) 30 each ctive ondansetron (ZOFRAN-ODT) 4 MG disintegrating tablet Take 1 tablet by mouth 3 times daily as needed for Nausea or Vomiting 21 tablet 12/01/2022ctive Additional Information Patient not taking.Reported on 11/08/2024 scopolamine (TRANSDERM-SCOP) transdermal patch Place 1 patch onto the skin every 72 hours 10 patch 12/04/2022ctive Additional Information Patient not taking.Reported on 11/08/2024 acetaminophen (TYLENOL) 325 MG tablet Take 2 tablets by mouth every 6 hours as needed for PainActive aspirin 81 MG chewable tablet Take 1 tablet by mouth dailyActive clopidogrel (PLAVIX) 75 MG tablet Take 1 tablet by mouth dailyActive HYDROcodone-acetaminophen (NORCO) 5-325 MG per tablet Take 2 tablets by mouth every 6 hours as needed for Pain.Active hydrOXYzine HCl (ATARAX) 25 MG tablet Take 1 tablet by mouth 3 times daily as needed for Itching (at night)Active metoprolol succinate (TOPROL XL) 25 MG extended release tablet Take 1 tablet by mouth dailyActive traMADol (ULTRAM) 50 MG tablet Take 1 tablet by mouth every 6 hours as needed for Pain.Active hydrocortisone (CORTEF) 10 MG tablet Take 1 tablet by mouth daily5Active verapamil (CALAN) 40 MG tablet Take 1 tablet by mouth/5Active traZODone (DESYREL) 100 MG tablet Take 1 tablet by mouth nightlyActive sucralfate (CARAFATE) 1 GM tablet Take 1 tablet by mouthActive rosuvastatin (CRESTOR) 40 MG tablet Take 1 tablet by mouth fufscag43/5Active ranolazine (RANEXA) 500 MG extended release tablet Take 1 tablet by mouth 2 times daily/6Active Prucalopride Succinate (MOTEGRITY) 2 MG tablet Take 1 tablet by mouth dailyActive methocarbamol (ROBAXIN) 500 MG tablet Take 1.5 tablets by mouth 4 times dailyActive metFORMIN, OSM, (FORTAMET) 500 MG extended release tablet Take 1 tablet by mouth 2 times daily (with meals)Active fentaNYL (DURAGESIC) 12 MCG/HR APPLY TO SKIN TRANSDERMALLY EVERY 3 DAYS WITH A 25MCG PATCH5Active metoclopramide (REGLAN) 10 MG tablet Take 1 tablet by mouth 2 times daily as uvwpst44/Expired cephALEXin (KEFLEX) 500 MG capsule Take 1 capsule by mouth 3 times daily for 7 days 21 capsule /Expired phenazopyridine (PYRIDIUM) 200 MG tablet Take 1 tablet by mouth 3 times daily as needed for Pain (bladder spasm/pain) 6 tablet /Expired Active Problems ProblemNoted DateDiagnosed DateIntractable nausea and /14/2023 Encounters DateTypeDepartmentCare ZlqdBdthhjdznsd73/20/2025 2:32 PM EDT - 12/04/2024 6[facility] [address] [place] [address] Hematuria, unspecified type (Primary Dx) Discharge Disposition: Home or Self Care12/04/20248339Kdsqyw44/18/2025 10:18 AM EDT - 12/[facility]24 [facility] [address] [place], [place] [id number] Gross hematuria (Primary Dx); Painful bladder spasm; Right flank pain Discharge Disposition: Home or Self Care12/02/20244807Svwnnw14/09/2025 5:32 PM EDT - 11/23/2024 8[facility] [address] [place], [place] [id number] Shelley Sanz DO Acute urinary retention (Primary Dx); Acute UTI Discharge Disposition: Home or Self Care11/23/20242955Uzxadm61/01/2025 1:15 PM EDT - 11/15/2024 6:[facility] [address] [place] [address] Jory Hurd DO Chest pain, unspecified type (Primary Dx) Discharge Disposition: Another Acute Care Yqkwstdi42/01/9771Yrmdtu94/24/2025 12:31 PM EDT - 11/09/2024 8:[facility] [address] [place], [place] [id number] Oc Graham MD Chest pain, unspecified type (Primary Dx) Discharge Disposition: Another Acute Care Mdsmrlno36/24/2025Travelfrom Last 3 Months Social History Tobacco UseTypesPacks/DayYears UsedDateSmoking Tobacco: NeverSmokeless [...] Safety Domain Source: IP Abuse ScreeningAnswerDate RecordedPhysical gaypiYirvuz53/18/2025 Verbal oqeujPpforx89/18/2025Emotional ermihGgtbhi02/18/2025Financial abuseDenies 12/02/2024Sexual ubfmlCcjdnd23/18/2025CommentsNoSex and Gender InformationValueDate RecordedSex Assigned at BirthNot on fileLegal SexFemale 04/12/2013 2:41 PM ESTGender IdentityNot on fileSexual OrientationNot on file Last Filed Vital Signs Vital SignReadingTime TakenCommentsBlood Graoyxci087/4610 6:01 PM EDT Nnvhf1866 2:30 PM WEGJnmhelkmnax16.7 ??C (98.1 ??F)12/04/2024 2:30 PM EDTRespiratory Jcfu4574 2:30 PM EDTOxygen Aluimznzbn98%12/04/2024 6:01 PM EDTInhaled Oxygen Concentration--Qobtet56.6 kg (180 lb)12/02/2024 10:14 AM YRLFdmndw377.6 cm (5' 6 )12/02/2024 10:14 AM EDTBody Mass Index29.0512/02/2024 10:14 AM EDT Plan of Treatment Health MaintenanceDue DateLast FctnDkigamxlWmqrft24/17/2000Depression Screen 2001Varicella vaccine (1 of 2 - 13+ 2-dose series)2002HIV screen 2004Hepatitis C nohlvh7704/03/2007Hepatitis B vaccine (1 of 3 - 19+ 3-dose series)2008Flu vaccine (#1)509/, 11/16/2021, 01/01/2021, Additional history existsCOVID-19 Vaccine ( season)2024 02/18/2021, 1DTaP/Tdap/Td vaccine (2 - Td or Tdap) HPV vaccine (No Doses Required)CompletedHepatitis A vaccineAged OutNo longer eligible based on patient's age to complete this topicHib vaccineAged OutNo longer eligible based on patient's age to complete this topicMeningococcal (ACWY) vaccineAged OutNo longer eligible based on patient's age to complete this topicMeningococcal B vaccineAged OutNo longer eligible based on patient's age to complete this topicPneumococcal 0-49 years VaccineAged OutNo longer eligible based on patient's age to complete this topicPolio vaccineAged OutNo longer eligible based on patient's age to complete this topic Procedures Procedure NamePriorityDate/TimeAssociated DiagnosisCommentsCT UROGRAMSTAT 12/04/2024 4:29 PM EDT MICROSCOPIC FHKGJNFQGSGnahcfo74/20/2025 2:55 PM EDT GIKYWFBLFVTVUT12/20/2025 2:55 PM EDT CULTURE, ASENIWMTU07/20/2025 2:55 PM EDTPROTIME-NFBPSLU7912/04/2024 2:53 PM EDT BASIC METABOLIC SVZKITXUG66/20/2025 2:53 PM EDT CBC WITH AUTO BZIMOAKWGKHPPLHD02/20/2025 2:53 PM EDT MICROSCOPIC QBTUHWBYWSRxjnctl90/18/2025 11:54 AM EDT URINALYSIS WITH REFLEX TO FWTWSARDASP89/18/2025 11:[address] ABDOMEN PELVIS WO MYHEDCZBQUGK12/18/2025 11:30 AM EDT BQWXRMONMBXAS63/18/2025 11:12 AM EDT LACTIC BYFNZEQS04/18/2025 11:12 AM EDT CBC WITH AUTO KCLVFDCXRNMUBVYG37/18/2025 11:12 AM EDT COMPREHENSIVE METABOLIC EFAOWWIFS00/18/2025 11:12 AM EDT EKG 12-PWYDVlfrfoy52/09/2025 6:44 PM EDT JLYAOBAIICGA77/09/2025 6:16 PM EDT BASIC METABOLIC IWYUDSRNV44/09/2025 6:16 PM EDT CBC WITH AUTO SKCCWTGFHEHSUQSB88/09/2025 6:16 PM EDT MICROSCOPIC SNCTLMTAQGZfrsoip37/09/2025 5:40 PM EDT URINALYSIS WITH REFLEX TO MGSOIKFHGPI67/09/2025 5:40 PM EDT LHBNEALSONTJ02/01/2025 2:35 PM EDT BHAGNWGM71/01/2025 1:25 PM EDT PROTIME-BJIXWDO1211/15/2024 1:25 PM EDT BRAIN NATRIURETIC CCHIRYXKTUK93/01/2025 1:25 PM EDT MPEKSQXXFKQE93/01/2025 1:25 PM EDT CBC WITH AUTO TGBORAQEBTYCTDLB40/01/2025 1:25 PM EDT BASIC METABOLIC CRLOEBVGX85/01/2025 1:25 PM EDT XR CHEST WLYJHCWXHKZT49/01/2025 1:24 PM EDT EKG 12-IFMBGVTF26/01/2025 1:19 PM EDT POCT JHCQGOJDhgtxxj44/24/2025 11:06 PM EDT POCT HRMLGZRLLBS62/24/2025 11:06 PM EDT POCT TIEXAMGENUQ58/24/2025 8:09 PM EDT POCT HKEWSCWLxgsull11/24/2025 7:55 PM EDT WEYCHMJHQEZI83/24/2025 6:38 PM EDT POCT RJQPPTVVveuury83/24/2025 4:04 PM EDT EKG 12-DYECKALB38/24/2025 4:01 PM EDT POCT WUJPNPDYuoevcy31/24/2025 2:03 PM EDT CTA CHEST ABDOMEN PELVIS W WO QGYDHFPIMWVL47/24/2025 1:43 PM EDT PROTIME-QXNGJXQ1511/08/2024 1:39 PM EDT GKWWMSUR55/24/2025 1:39 PM EDT POCT CMZJNDCVLPCUDO73/24/2025 1:16 PM EDT POCT QKNIQSNrzizol56/24/2025 1:14 PM EDT BKJRAMHZVFKP81/24/2025 12:50 PM EDT COMPREHENSIVE METABOLIC PANEL W/ REFLEX TO MG FOR LOW KSTAT11/08/2024 12:50 PM EDT CBC WITH AUTO MTOXFSBIDZBZVQRN83/24/2025 12:50 PM EDT POCT VNSEDXWDtavywi29/24/2025 12:38 PM EDT EKG 12-MCMLSolqtlv98/24/2025 12:37 PM EDT from Last 3 Months Results * CT UROGRAM (12/04/2024 4:29 PM [...] cecal tip consistent with prior appendectomy. Bladder: ??Costello catheter noted within the urinary bladder, likely [...] cecal tip consistent with prior appendectomy. Bladder: Costello catheter noted within the urinary bladder, likelyaccounting [...] change noted. Authorizing ProviderResult TypeResult StatusMarciemily Marion INK MAKER - CNPIMG CT ORDERABLESFinal Result * (ABNORMAL) Microscopic Urinalysis (12/04/2024 2:55 PM EDT) Only the most recent of3 resultswithin the time period is included. ComponentValueRef RangeTest MethodAnalysis TimePerformed AtPathologist Signature WBC, UA2 TO 50 - 5 /HPF12/04/2024 2:55 PM [facility] RBC, UAGREATER THAN 1000 - 2 /HPF12/04/2024 2:55 PM [facility] LABEpithelial Cells, UA0 TO 20 - 25 /HPF12/04/2024 2:55 PM [facility] LABBacteria, UA2+(A)None12/04/2024 2:55 PM [facility] LABSpecimen (Source)Anatomical Location / Laterality Collection Method / VolumeCollection TimeReceived Time12/04/2024 2:55 PM EDT 12/04/2024 3:03 PM EDT Narrative Authorizing ProviderResult TypeResult StatusMarciemily Marion INK MAKER - CNPURINE ORDERABLESFinal ResultPerforming OrganizationAddressCity/State/ZIP CodePhone Number [facility] [address] [id number] [phone] * (ABNORMAL) Urinalysis (12/04/2024 2:55 PM EDT)ComponentValueRef RangeTest MethodAnalysis TimePerformed AtPathologist SignatureColor, UARed(A)Yellow 12/04/2024 2:55 PM [facility] LABTurbidity UAClearClear 12/04/2024 2:55 PM [facility] LABGlucose, UrNEGATIVE NEGATIVE mg/dL12/04/2024 2:55 PM [facility] LABBilirubin, UjlqfFMKOQWYOAOHJUHLA33/20/2025 2:55 PM [facility] Ketones, Urine1+(A)NEGATIVE mg/dL12/04/2024 2:55 PM [facility] LABSpecific [employer], UA1.0201.010 - 1.5726612/04/2024 2:55 PM [facility] LABUrine Hgb3+(A)IKSZKXNN08/20/2025 2:55 PM [facility] LABpH, Urine7.05.0 - 9.010 2:55 PM [facility] LABProtein, UA2+(A)NEGATIVE mg/dL12/04/2024 2:55 PM EDT [facility] LABUrobilinogen, UrineELEVATED0.0 - 1.0 EU/dL 12/04/2024 2:55 PM [facility] LABNitrite, UrinePOSITIVE (A)FRIWVTON43/20/2025 2:55 PM [facility] LABLeukocyte Esterase, UrineSMALL(A)GCEYFSTV92/20/2025 2:55 PM [facility] LABSpecimen (Source)Anatomical Location / LateralityCollection Method / VolumeCollection TimeReceived TimeUrineURINE SPECIMEN / Udjitau0612/04/2024 2:55 PM EDT1 3:03 PM EDT Narrative Authorizing ProviderResult TypeResult StatusMarciemily Marion INK MAKER - CNPURINE ORDERABLESFinal ResultPerforming OrganizationAddressCity/State/ZIP CodePhone Number [facility] [address] [id number] [phone] * (ABNORMAL) CBC with Auto Differential (12/04/2024 2:53 PM EDT) Only the most recent of5 resultswithin the time period is included. ComponentValueRef RangeTest MethodAnalysis TimePerformed AtPathologist Signature WBC4.13.5 - 11.3 k/uL12/04/2024 2:53 PM [facility] LABRBC 3.21(L)3.95 - 5.11 m/uL12/04/2024 2:53 PM [facility] Hemoglobin9.4(L)11.9 - 15.1 g/dL12/04/2024 2:53 PM [facility] DBVYvltinblmo26.2(L)36.3 - 47.1 %12/04/2024 2:53 PM [facility] PNQVJY51.982.6 - 102.9 fL12/04/2024 2:53 PM [facility] AHOCTB70.325.2 - 33.5 pg12/04/2024 2:53 PM [facility] DWNYPKC02.328.4 - 34.8 g/dL12/04/2024 2:53 PM [facility] NYDUAJ58.711.8 - 14.4 %12/04/2024 2:53 PM [facility] QMQJjikijspm451050 - 453 k/uL12/04/2024 2:53 PM [facility] OSDBLH18.68.1 - 13.5 fL12/04/2024 2:53 PM [facility] LABNRBC Automated0.00.0 per 100 WBC12/04/2024 2:53 PM [facility] LABNeutrophils %5136 - 65 %12/04/2024 2:53 PM [facility] LABLymphocytes %3724 - 43 %12/04/2024 2:53 PM [facility] LABMonocytes %93 - 12 %12/04/2024 2:53 PM [facility] LABEosinophils %21 - 4 %12/04/2024 2:53 PM [facility] LABBasophils %10 - 2 %12/04/2024 2:53 PM [facility] LABImmature Granulocytes %00 %12/04/2024 2:53 PM [facility] LABNeutrophils Absolute2.091.50 - 8.10 k/uL12/04/2024 2:53 PM [facility] LABLymphocytes Absolute1.491.10 - 3.70 k/uL12/04/2024 2:53 PM [facility] LABMonocytes Absolute0.360.10 - 1.20 k/uL12/04/2024 2:53 PM [facility] LABEosinophils Absolute 0.080.00 - 0.44 k/uL12/04/2024 2:53 PM [facility] Basophils Absolute0.040.00 - 0.20 k/uL12/04/2024 2:53 PM [facility] LABImmature Granulocytes Absolute<0.030.00 - 0.30 k/uL12/04/2024 2:53 PM [facility] LABSpecimen (Source)Anatomical Location / LateralityCollection Method / VolumeCollection TimeReceived TimeBloodBLOOD SPECIMEN / Tmgzkpr1312/04/2024 2:53 PM EDT1 3:02 PM EDT Narrative Authorizing ProviderResult TypeResult StatusMarcia A Doni INK MAKER - HEALTH CARE TECHNICIAN HEMATOLOGY ORDERABLESFinal ResultPerforming OrganizationAddressCity/State/ZIP CodePhone Number [facility] [address] [place] [address] * Protime-INR (12/04/2024 2:53 PM EDT) Only the most recent of3 resultswithin the time period is included. ComponentValueRef RangeTest MethodAnalysis TimePerformed AtPathologist Signature Gbeemew47.112.0 - 15.0 sec12/04/2024 2:53 PM [facility] INR1.110 2:53 PM [facility] LABComment: ? Therapeutic Range: Moderate Anticoagulant Intensity: INR = 2.0-3.0 High Anticoagulant Intensity: INR = 2.5-3.5 Specimen (Source)Anatomical Location / LateralityCollection Method / Volume Collection TimeReceived TimeBloodBLOOD SPECIMEN / Orlxqdx3712/04/2024 2:53 PM EDT 12/04/2024 3:02 PM EDT Narrative Authorizing ProviderResult TypeResult StatusMarpapa Emily Doni INK MAKER - HEALTH CARE TECHNICIAN HEMATOLOGY ORDERABLESFinal ResultPerforming OrganizationAddressCity/State/ZIP CodePhone Number [facility] [address] [place] [address] * (ABNORMAL) BMP (12/04/2024 2:53 PM EDT) Only the most recent of3 resultswithin the time period is included. ComponentValueRef RangeTest MethodAnalysis TimePerformed AtPathologist Signature Nvjysm943081 - 145 mmol/L1 2:53 PM [facility] Potassium3.93.7 - 5.3 mmol/L1 2:53 PM [facility] OKSVrrdduwi234(H)98 - 107 mmol/L10 2:53 PM [facility] JZTNN91819 - 31 mmol/L1 2:53 PM [facility] LABAnion Gap8(L)9 - 16 mmol/L1 2:53 PM [facility] JUTJpxjhtv9475 - 99 mg/dL12/04/2024 2:53 PM [facility] XOKCZW36 - 20 mg/dL12/04/2024 2:53 PM [facility] LABCreatinine0.60.50 - 0.90 mg/dL12/04/2024 2:53 PM [facility] LABEst, Glom Filt Rate>90>60 mL/min/1.96d91612/04/2024 2:53 PM [facility] LABComment: ? These results are not [...] therapy that affects renal tubular secretion. BUN/Creatinine Agwyj302 - 2:53 PM [facility] LABCalcium8.2(L)8.6 - 10.4 mg/dL12/04/2024 2:53 PM [facility] LABSpecimen (Source)Anatomical Location / LateralityCollection Method / VolumeCollection TimeReceived TimeBloodBLOOD SPECIMEN / Fpizddr5112/04/2024 2:53 PM EDT1 3:02 PM EDT Narrative Authorizing ProviderResult TypeResult StatusMarciemily Marion INK MAKER - CNPCHEMISTRY ORDERABLESFinal ResultPerforming OrganizationAddressCity/State/ZIP CodePhone Number [facility] [address] [place] [address], [facility] [phone] * (ABNORMAL) Urinalysis with Reflex to Culture (12/02/2024 11:54 AM EDT) Only the most recent of2 resultswithin the time period is included. ComponentValueRef RangeTest MethodAnalysis TimePerformed AtPathologist Signature Color, UARed(A)Iqtjxi6012/02/2024 11:54 AM [facility] Turbidity TMVakfdNpdef46/ 11:54 AM [facility] Glucose, UrNEGATIVENEGATIVE mg/dL12/02/2024 11:54 AM [facility] LABBilirubin, TibzsRJBJTXJMCKVWOXQY72/18/2025 11:54 AM [facility] LABKetones, UrineNEGATIVENEGATIVE mg/dL12/02/2024 11:54 AM EDT [facility] LABSpecific [employer], UA1.0101.010 - 1.6738912/02/2024 11:54 AM [facility] LABUrine Hgb3+(A)VONAVQRZ27/18/2025 11:54 AM [facility] LABpH, Urine7.05.0 - 9. 11:54 AM [facility] LABProtein, UATRACE(A)NEGATIVE mg/dL 12/02/2024 11:54 AM [facility] LABUrobilinogen, UrineNormal 0.0 - 1.0 EU/dL12/02/2024 11:54 AM [facility] LABNitrite, EnpmvKXNSLHOGPUNTGVFY34/18/2025 11:54 AM [facility] Leukocyte Esterase, MasqdRQWFDFSCBXFSEBLY43/18/2025 11:54 AM [facility] LABSpecimen (Source)Anatomical Location / LateralityCollection Method / VolumeCollection TimeReceived TimeURINE SPECIMEN / Drzlksi8912/02/2024 11:54 AM EDT1 11:57 AM EDT Narrative Authorizing ProviderResult TypeResult StatusDavid Chris DUNCAN ORDERABLES Final ResultPerforming OrganizationAddressCity/State/ZIP CodePhone Number [facility] [address] [phone], [facility] [phone] * CT ABDOMEN PELVIS WO CONTRAST Additional [...] AtPathologist SignatureMagnesium1.81.6 - 2.6 mg/dL12/02/2024 11:12 AM [facility] LABSpecimen (Source)Anatomical Location / LateralityCollection Method / VolumeCollection TimeReceived Time BloodBLOOD SPECIMEN / Zybwbnm0112/02/2024 11:12 AM EDT1 11:14 AM EDT Narrative Authorizing ProviderResult TypeResult StatusDavance Perez PA-[facility] HE[facility] SYSTEMEMISTRY ORDERABLESFinal ResultPerforming OrganizationAddressCity/State/ZIP CodePhone Number [facility] [address] [phone] * Lactic Acid (12/02/2024 11:12 AM EDT)ComponentValueRef RangeTest Method Analysis TimePerformed AtPathologist SignatureLactic Acid0.80.5 - 2.2 mmol/L 12/02/2024 11:12 AM [facility] LABSpecimen (Source) Anatomical Location / LateralityCollection Method / VolumeCollection Time Received TimeBloodBLOOD SPECIMEN / Pllodyt5712/02/2024 11:12 AM EDT1 11:14 AM EDT Narrative Authorizing ProviderResult TypeResult StatusDavid [facility] PA-CCHEMISTRY ORDERABLESFinal ResultPerforming OrganizationAddressCity/State/ZIP CodePhone Number [facility] [address] [place] [address], [facility] [phone] * (ABNORMAL) CMP (12/02/2024 11:12 AM EDT)ComponentValueRef RangeTest Method Analysis TimePerformed AtPathologist DbhtqnzjxXswiuu257518 - 145 mmol/L 12/02/2024 11:12 AM [facility] LABPotassium3.93.7 - 5.3 mmol/L1 11:12 AM [facility] KCVTymhbuzt18922 - 107 mmol/L1 11:12 AM [facility] JRZCU55034 - 31 mmol/L1 11:12 AM [facility] LABAnion Gap99 - 16 mmol/L1 11:12 AM [facility] TTUKoccnbn1945 - 99 mg/dL12/02/2024 11:12 AM [facility] SLTCJG06 - 20 mg/dL 12/02/2024 11:12 AM [facility] LABCreatinine0.70.50 - 0.90 mg/dL12/02/2024 11:12 AM [facility] LABEst, Glom Filt Rate>90>60 mL/min/1.58h49812/02/2024 11:12 AM [facility] LABComment: ? These results are not [...] therapy that affects renal tubular secretion. BUN/Creatinine Zmwxe219 - 11:12 AM [facility] LABCalcium8.4(L)8.6 - 10.4 mg/dL12/02/2024 11:12 AM [facility] LABTotal Protein6.0(L)6.6 - 8.7 g/dL12/02/2024 11:12 AM [facility] LABAlbumin3.73.5 - 5.2 g/dL12/02/2024 11:12 AM [facility] LABAlbumin/Globulin Ratio1.61.0 - 2.510 11:12 AM EDT [facility] LABTotal Bilirubin0.30.00 - 1.20 mg/dL12/02/2024 11:12 AM [facility] LABAlkaline Uwtbkpnzzbv3688 - 104 U/L 12/02/2024 11:12 AM [facility] FERCYU32(H)10 - 35 U/L 12/02/2024 11:12 AM [facility] CQGADJ55(H)10 - 35 U/L 12/02/2024 11:12 AM [facility] LABSpecimen (Source) Anatomical Location / LateralityCollection Method / VolumeCollection Time Received TimeBloodBLOOD SPECIMEN / Bjeznfh0012/02/2024 11:12 AM EDT1 11:14 AM EDT Narrative Authorizing ProviderResult TypeResult StatusDavid Chris GONZALEZTRINITY HEALTH SYSTEMEMISTRY ORDERABLESFinal ResultPerforming OrganizationAddressCity/State/ZIP CodePhone Number [facility] [address] [phone] * EKG 12 Lead (11/23/2024 6:44 PM EDT) Only the most recent of4 resultswithin the time period is included. ComponentValueRef RangeTest MethodAnalysis TimePerformed AtPathologist Signature Ventricular Pgna49JUZMKWU MTH RADIOLOGYAtrial Sych41OQGHYJA [facility] RADIOLOGYP-R Siyogdsp549eaGZSF [facility] RADIOLOGYQRS Fljbyclz14ayUHYZ [facility] RADIOLOGYQ-T Tvjhbdzn514 msMHPN [facility] RADIOLOGYQTc Calculation (Davidtt)486msMHPN [facility] RADIOLOGYP Axis74 degreesMHPN [facility] RADIOLOGYR Ciye29hvoxpmsHRLN [facility] RADIOLOGYT Jbrb60ltlehqsRHCH [facility] RADIOLOGYSpecimen (Source)Anatomical Location / LateralityCollection Method / VolumeCollection TimeReceived Time11/23/2024 6:44 PM EDT Narrative [facility] - 11/23/2024 11:05 PM EDT Normal [...] on 11/23/2024 11:05:14 PM Authorizing ProviderResult TypeResult StatusShelley Sanz DOECG ORDERABLES Final ResultPerforming OrganizationAddressCity/State/ZIP CodePhone Number [facility] * Troponin (11/23/2024 6:16 PM EDT) Only the most recent of5 resultswithin the time period is included. ComponentValueRef RangeTest MethodAnalysis TimePerformed AtPathologist Signature Troponin, High Sensitivity<60 - 14 ng/L1 6:16 PM EDPREMIER HEALTH LABComment:High Sensitivity Troponin values cannot be compared with other Troponin methodologies.Specimen (Source)Anatomical Location / Laterality Collection Method / VolumeCollection TimeReceived TimeBloodBLOOD SPECIMEN / Cntddfl1111/23/2024 6:16 PM EDT1 7:20 PM EDT Narrative Authorizing ProviderResult TypeResult StatusChtayler Sanz DOCHEMISTRY ORDERABLESFinal ResultPerforming OrganizationAddressCity/State/ZIP CodePhone Number [facility] [address] [phone] * APTT (11/15/2024 1:25 PM EDT) Only the most recent of2 resultswithin the time period is included. ComponentValueRef RangeTest MethodAnalysis TimePerformed AtPathologist Signature APTT27.823.1 - 33.7 sec11/15/2024 1:25 PM [facility] Comment: ? IV Heparin Therapy Range: ?62.0-94.0 ? Specimen (Source)Anatomical Location / LateralityCollection Method / Volume Collection TimeReceived TimeBloodBLOOD SPECIMEN / [id number]/15/2024 1:25 PM EDT 11/15/2024 1:49 PM EDT Narrative Authorizing ProviderResult TypeResult StatusJory Hurd DOHEMATOLOGY ORDERABLESFinal ResultPerforming OrganizationAddressCity/State/ZIP CodePhone Number [facility] [address] [place] [address], [facility] [phone] * (ABNORMAL) Brain Natriuretic Peptide (11/15/2024 1:25 PM EDT)ComponentValueRef RangeTest MethodAnalysis TimePerformed AtPathologist SignatureNT Pro-CTV301(H) 0 - 125 pg/mL11/15/2024 1:25 PM [facility] LABSpecimen (Source)Anatomical Location / LateralityCollection Method / VolumeCollection TimeReceived TimeBloodBLOOD SPECIMEN / Cwmsyhh4211/15/2024 1:25 PM EDT1 1:49 PM EDT Narrative Authorizing ProviderResult TypeResult Jayme Hurd DOCHEMISTRY ORDERABLESFinal ResultPerforming OrganizationAddressCity/State/ZIP CodePhone Number [facility] [address] [place] [address], [facility] [phone] * XR CHEST PORTABLE (11/15/2024 1:24 PM EDT)Anatomical RegionLateralityModality ChestComputed RadiographySpecimen (Source)Anatomical Location / Laterality Collection Method / VolumeCollection TimeReceived Time11/15/2024 1:48 PM EDT Impressions 11/15/2024 1:49 PM [...] osseous abnormality. IMPRESSION: 1. No acute abnormalities. Authorizing ProviderResult TypeResult StatusAlemanda Hurd [facility] DIAGNOSTIC IMAGING ORDERABLESFinal Result * (ABNORMAL) POCT Glucose (11/08/2024 11:06 PM EDT) Only the most recent of7 resultswithin the time period is included. ComponentValueRef RangeTest MethodAnalysis TimePerformed AtPathologist Signature POC Asoxxvv536(H)70 - 99 mg/dl11/08/2024 11:06 PM [facility] LABPerformed onACCU-CHEK11/08/2024 11:06 PM [facility] LABSpecimen (Source)Anatomical Location / LateralityCollection Method / VolumeCollection TimeReceived Time11/08/2024 11:06 PM EDT11/08/2024 11:19 PM EDT Narrative Authorizing ProviderResult TypeResult StatusUnknown Provider ResultPOINT OF CARE TEST ORDERABLESFinal ResultPerforming OrganizationAddressCity/State/ZIP Code Phone Number [facility] [address] [place] [address], [facility] [phone] * CTA CHEST ABDOMEN PELVIS W WO CONTRAST (11/08/2024 1:43 PM EDT)Anatomical RegionLateralityModalityChest, Abdomen, Pelvis, HipComputed TomographySpecimen (Source)Anatomical Location / LateralityCollection Method / VolumeCollection TimeReceived Time11/08/2024 2:54 PM EDT Impressions 11/08/2024 3:04 PM [...] Multiplanar reformatted images are provided for review. ??MIP images are provided for review. Automated exposure [...] evidence of thoracic aortic aneurysm or dissection. ??No acute abnormality of the aorta. Mediastinum: No evidence of mediastinal lymphadenopathy. ??The heart and pericardium demonstrate no acute abnormality. Lungs/Pleura: The lungs are without acute process. ??No focal consolidation or pulmonary edema. ??No evidence of pleural effusion or pneumothorax. Soft Tissues/Bones: No acute bone or soft tissue abnormality. CTA ABDOMEN: Abdominal aorta/Branches: Lower thoracic and upper abdominal aorta are normal in diameter. ??No evidence of aneurysm or dissection. ??Normal origin of the celiac and SMA vessels. ??Widely patent renal arteries, 2 right renal arteries noted. Organs: Liver is normal in size with multiple well-defined low-density lesions compatible with cysts. ??There is mild unchanged intrahepatic biliary ductal prominence. ??There are findings of a prior cholecystectomy. ??Stomach shows evidence of prior gastric bypass procedure. ??Pancreas appears normal. Normal adrenal glands. ??Kidneys demonstrate normal corticomedullary enhancement. ??No suspicious renal masses. ??No calculi. GI/Bowel: Moderate amount of stool in the right and transverse colon which could reflect constipation in the proper clinical setting. ??Normal TI. ??There are findings of a prior appendectomy. ??No evidence of pathologic mesenteric adenopathy or mass. Peritoneum/Retroperitoneum: No retroperitoneal mass or adenopathy. ??No evidence of pneumoperitoneum. Bones/Soft Tissues: ??No acute abnormality of the visualized osseous structures. CTA PELVIS: Aorta/Iliacs: Lower abdominal aorta is nonaneurysmal. ??Iliac vessels are normal in diameter and demonstrate no evidence of stenosis or dissection. Patent common femoral and profunda frontal femoris arteries bilaterally. ??No evidence of active hemorrhage within the pelvis. Other: No free pelvic fluid. ??Urinary bladder is mildly distended and contains small amount of gas but is otherwise normal. Bones/Soft Tissues: No acute osseous abnormality in the pelvis. ??There is subcutaneous swelling in the right inguinal [...] appendectomy. 7. Status post gastric bypass procedure. Authorizing ProviderResult TypeResult Mickie Graham MDIMG CT ORDERABLESFinal Result * POCT Creatinine (11/08/2024 1:16 PM EDT)ComponentValueRef RangeTest Method Analysis TimePerformed AtPathologist SignaturePOC CREATININE WHOLE BLOOD0.6 Specimen (Source)Anatomical Location / LateralityCollection Method / Volume Collection TimeReceived TimeBLOOD SPECIMEN / Bcxrrfi1611/08/2024 1:16 PM EDT Narrative Authorizing ProviderResult TypeResult Mickie Graham [facility] OF CARE TEST ORDERABLESFinal Result * POCT Venous (11/08/2024 1:14 PM EDT)ComponentValueRef RangeTest MethodAnalysis TimePerformed AtPathologist SignaturePOC Creatinine0.60.6 - 1.2 mg/dL 11/08/2024 1:14 PM [facility] LABEst, Glom Filt Rate>90 >60011/08/2024 1:14 PM [facility] LABComment: Pediatric calculator link https://www.kidney.org/professionals/kdoqi/gfr_calculatorped Effective Nov 17, 2021 These results are not intended for use in patients <18 years of age. eGFR results are calculated without a race factor using the 2020 CKD-EPI equation. ??Careful clinical correlation is recommended, particularly when comparing to results calculated using previous equations. The CKD-EPI equation is less accurate in patients with extremes of muscle mass, extra-renal metabolism of creatinine, excessive creatinine ingestion, or following therapy that affects renal tubular secretion. Sample BuqjHMA7711/08/2024 1:14 PM [facility] LABPerformed on SEE BELOW11/08/2024 1:14 PM [facility] LABComment:Performed on POCSpecimen (Source)Anatomical Location / LateralityCollection Method / VolumeCollection TimeReceived Time11/08/2024 1:14 PM EDT11/08/2024 1:54 PM EDT Narrative Authorizing ProviderResult TypeResult StatusAlen Santos MDPOINT OF CARE TEST ORDERABLESFinal ResultPerforming OrganizationAddressCity/State/ZIP CodePhone Number [facility] [address] [place] [address], [facility] [phone] * (ABNORMAL) Comprehensive Metabolic Panel w/ Reflex to MG (11/08/2024 12:50 PM EDT)ComponentValueRef RangeTest MethodAnalysis TimePerformed AtPathologist IdsgxlryzNrnffq400210 - 144 mEq/L11/08/2024 12:59 PM [facility] LABPotassium reflex Magnesium3.63.4 - 4.9 mEq/L11/08/2024 12:59 PM [facility] EJLNxdkbtla40081 - 107 mEq/L11/08/2024 12:59 PM [facility] FGERA29287 - 31 mEq/L11/08/2024 12:59 PM [facility] LABAnion Gap99 - 15 mEq/L11/08/2024 12:59 PM [facility] HRWJyaaobi6579 - 99 mg/dL11/08/2024 12:59 PM [facility] SHBUAD519 - 20 mg/dL11/08/2024 12:59 PM EDT [facility] LABCreatinine0.560.50 - 0.90 mg/dL11/08/2024 12:59 PM [facility] LABEst, Glom Filt Rate>90.0>60 11/08/2024 12:59 PM [facility] LABComment: Pediatric calculator link https://www.kidney.org/professionals/kdoqi/gfr_calculatorped Effective Nov 17, 2021 These results are not intended for use in patients <18 years of age. eGFR results are calculated without a race factor using the 2020 CKD-EPI equation. ??Careful clinical correlation is recommended, particularly when comparing to results calculated using previous equations. The CKD-EPI equation is less accurate in patients with extremes of muscle mass, extra-renal metabolism of creatinine, excessive creatinine ingestion, or following therapy that affects renal tubular secretion. Calcium8.3(L)8.5 - 9.9 mg/dL11/08/2024 12:59 PM [facility] LABTotal Protein6.2(L)6.3 - 8.0 g/dL11/08/2024 12:59 PM [facility] LABAlbumin3.83.5 - 4.6 g/dL11/08/2024 12:59 PM [facility] LABTotal Bilirubin0.40.2 - 0.7 mg/dL11/08/2024 12:59 PM [facility] LABAlkaline Turnoxfrnas0586 - 130 U/L11/08/2024 12:59 PM EDT [facility] JLDFKK340 - 33 U/L11/08/2024 12:59 PM [facility] ZOIQHV411 - 35 U/L11/08/2024 12:59 PM [facility] LABGlobulin2.42.3 - 3.5 g/dL11/08/2024 12:59 PM [facility] LABSpecimen (Source)Anatomical Location / LateralityCollection Method / VolumeCollection TimeReceived TimeBloodBLOOD SPECIMEN / Unknown 11/08/2024 12:50 PM EDT11/08/2024 12:50 PM EDT Narrative Authorizing ProviderResult TypeResult StatusAlen Silgenek MDCHEMISTRY ORDERABLES Final ResultPerforming OrganizationAddressCity/State/ZIP CodePhone Number [facility] [address] [place] [address], [facility] [phone] from Last 3 Months Insurance MemberSubscriberPlan / Payer (Effective 2024-Present)Name:Abbey Garcia Relation to Subscriber:SelfName:Abbey Garcia Payer ID:Not on file Type:Not on file Address: [place] [id number] Advance Directives * Full Code (Latest Code Status on File) Date ActivatedDate EvjfszriujcCruwykwf65/14/2023 11:57 AM12/03/2022 7:56 PM NameRelationshipHealthcare Agent RelationshipCommunicationEdna ArtinoParent Secondary Decision Maker* Roddy WinterspousePrimary Decision Maker* Care Teams Team MemberRelationshipSpecialtyStart DateEnd Thomas Alas MD [address] [place] [address] PCP - GeneralFamily Medicine11/08/24
--- OUTSIDE RECORDS SUMMARY | 2024-12-06 12:15 | XMS_ITS | Encounter Summary ---
Author Organization [facility] Address [address] [place] [address] Care Team Providers Care Site Administrator Name Role Phone Thomas Alas MD Primary Care Provider [phone] Encounter Details DateTypeDepartmentCare Team (Latest Contact Info)Yexlqjswmzz73/17/2025Orders Only [facility] [address] [place] [address] Muna Michael, RN Common bile duct dilation (Primary Dx) Social History Tobacco UseTypesPacks/DayYears UsedDateSmoking Tobacco: NeverSmokeless Tobacco: NeverAlcohol UseStandard Drinks/WeekCommentsNot Currently0 (1 standard drink = 0.6 oz pure alcohol)[facility] UtilitiesAnswerDate RecordedIn the past 12 months has the [employer], gas, oil, or water [employer] threatened to shut off services in your [...] homeless or living in a usp (including now)?No11/15/2024Hunger Vital SignAnswerDate RecordedWithin the past 12 months, you worried that your food would run out before you got the money to buymore.Never true11/15/2024Ran Out of Food in the Last YearNot on file 11/15/2024CommentsNoSex and Gender InformationValueDate RecordedSex Assigned at HaojwHobrsi09/03/2025 3:45 PM EDTLegal DxiJappmr88/30/2022 12:07 AM EDTGender DhkjhzkvLcsugz00/03/2025 3:45 PM EDTSexual OrientationHeterosexual or Pnhpzqrr31/03/2025 3:45 PM EDTdocumented as of this encounter Plan of Treatment DateTypeDepartmentCare Team (Latest Contact Info)Dnsdqpqspbm52/30/2025 9:00 AM EDTAppointment [facility] [address] [place] [address] Braxton Bellamy MD [address] [facility] [place] [address] 12/14/2024 10:30 AM EDTAppointment [facility] X-Ray Imaging [address] [place] [address] 01/31/2025 11:00 AM ESTOffice Visit [facility] Heart [facility] [address] [place] [address] Wali Collins MD [address] [place] [address] NameTypePriorityAssociated DiagnosesOrder ScheduleFl in EndoImagingRoutine Common bile duct dilation Expected: 12/14/2024, Expires: 12/01/2025documented as of this encounter Visit Diagnoses Diagnosis Common bile duct dilation- Primary documented in this encounter Care Teams Team MemberRelationshipSpecialtyStart DateEnd Date Thomas Alas MD [address] [place] [address] PCP - GeneralFamily Medicine08/17/24documented as of this encounter
--- OUTSIDE RECORDS SUMMARY | 2024-12-06 12:15 | XMS_ITS | Encounter Summary ---
Author Organization [facility] Address [address] [place] [address] Care Team Providers Care Flatbed Stitcher Name Role Phone Thomas Alas MD Primary Care Provider [phone] Encounter Details DateTypeDepartmentCare Team (Latest Contact Info)Vmuxorczcmc12/12/2025Travel Social History Tobacco UseTypesPacks/DayYears UsedDateSmoking Tobacco: NeverSmokeless Tobacco: NeverAlcohol UseStandard Drinks/WeekCommentsNot Currently0 (1 standard drink = 0.6 oz pure alcohol)[facility] UtilitiesAnswerDate RecordedIn the past 12 months has [...] homeless or living in a fci (including now)?No11/15/2024Hunger Vital SignAnswerDate RecordedWithin the past 12 months, you worried that your food would run out before you got the money to buymore.Never true11/15/2024Ran Out of Food in the Last YearNot on file 11/15/2024CommentsNoSex and Gender InformationValueDate RecordedSex Assigned at TazlgUtagiz20/03/2025 3:45 PM EDTLegal KevVgeosj81/30/2022 12:07 AM EDTGender XfhrdhodJohirj53/03/2025 3:45 PM EDTSexual OrientationHeterosexual or Bczaelik37/03/2025 3:45 PM EDTdocumented as of this encounter Functional Status * QuestionAnswerDate of KapjvmvzdmWvcqzpEC023/6011/26/2024 9:25 PM Andie Bridges, DBKinhi6382/12/2025 9:25 PM Andie Bridges RN * Qureshi Fall RiskQuestionAnswerDate of AssessmentAuthorHistory of Falling, Immediate or Within 3 Yscrkt818 7:34 PM Roseline Lopez RNSecondary Muygbsmrj139/12/2025 7:34 PM Roseline Lopez RNAmbulatory Ieh408 7:34 PM Roseline Lopez RNIntravenous Therapy/Heparin Alyo777 7:34 PM Roseline Lopez RNGait/Lykwsvmcmwfn463/12/2025 7:34 PM Roseline Lopez RNMental Cghorl497 7:34 PM Roseline Lopez RNMorse Fall Risk Rsinl002 7:34 PM Roseline Lopez RN * Cyrus ScaleQuestionAnswerDate of AssessmentAuthorBraden No Risk Interventions Continue to assess patient according to level of care11/26/2024 8:30 PM EDT Andie Fletcher, RNSensory Zfknxvgwidn429/12/2025 8:30 PM Andie Bridges RNMoisture41 8:30 PM Andie Bridges, RNActivity4 11/26/2024 8:30 PM Andie Bridges RNMobility31 8:30 PM EDT Andie Fletcher RNNutrition21 8:30 PM Andie Bridges RN Friction and Ppyzr675 8:30 PM Andie Bridges RNBraden Scale Ngrot6893/12/2025 8:30 PM Andie Bridges RN * Patient's Stated Pain GoalAnswerDate of AssessmentAuthorNo pain11/26/2024 9:33 PM Andie Bridges RN * Peytona Fall Risk InterventionsQuestionAnswerDate of AssessmentAuthor Peytona Fall Risk VpvpvdzycrvrfYqbcgzir14/12/2025 7:34 PM Roseline Lopez RN * Pain Assessment TimerQuestionAnswerDate of AssessmentAuthorRestart Pain Assessment MhuanNus82/12/2025 9:33 PM Andie Bridges RN * In the past 12 months, have you used drugs other than those required for medical reasons?AnswerDate of MnjqmxuzlfOgsyra806/12/2025 7:35 PM Roseline Lopez RN * Sepsis Model ScoresQuestionAnswerDate of AssessmentAuthorEarly Detection of Sepsis Score1.4611/26/2024 9:31 PM Matthias FatimaqEarly Detection of Sepsis Mhapr234 9:31 PM Delano Fatima * Pain AssessmentQuestionAnswerDate of AssessmentAuthorPain LocationAbdomen 11/26/2024 8:30 PM Andie Bridges RNPain ShvhxcpwqmeJlqyg60/12/2025 8:30 PM Andie Bridges RNPain HizmwizwyuqceOgtkhbyqnmir53/12/2025 8:30 PM Andie Bridges RNPain DescriptorsPressure;Mhmmvg9711/26/2024 8:30 PM Andie Bridges RNPain PbyjfKwbptks52/12/2025 8:30 PM Andie Bridges RNPain TypeAcute pain11/26/2024 8:30 PM Andie Bridges RN Clinical ProgressionNot tinnmvu6711/26/2024 8:30 PM Andie Bridges RNPain Assessment0-101 8:30 PM Andie Bridges RN * Pain ScoreAnswerDate of IjkejzftkdErehpn617/12/2025 9:33 PM Andie Bridges RN * Audit Alcohol ScreeningQuestionAnswerDate of AssessmentAuthorHow often do you have a drink containing alcohol? 7:35 PM Roseline Lopez RNHow many standard drinks containing alcohol do you have on a typical day?No 11/26/2024 7:35 PM Roseline Lopez RNHow often do you have six or more drinks on one occasion? 7:35 PM Roseline Lopez RNAudineva-C Score0 11/26/2024 7:35 PM Roseline Lopez RN * Head, Ears, Eyes, Nose, and Throat (HEENT)QuestionAnswerDate of Assessment AuthorHead, Ears, Eyes, Nose, and Throat (WDL)WDL1 8:30 PM Andie Bridges RN * Vital SignsQuestionAnswerDate of VvpfzdrloqMzlijxUX026/6011/26/2024 9:25 PM Andie Bridges RNTemp97.91 7:34 PM Roseline Lopez RNTemp opuRagi3211/26/2024 7:34 PM Roseline Lopez RNPulse7311/26/2024 9:25 PM Andie Muhammad RNResp181 9:25 PM Andie Bridges LFUkD403 11/26/2024 9:25 PM Andie Bridges RNMAP (mmHg)7311/26/2024 9:25 PM EDT Andie Fletcher RNPulse rate from Plethysmogram (bpm)7211/26/2024 9:25 PM Andie Bridges RN * GastrointestinalQuestionAnswerDate of AssessmentAuthorAbdominal TendernessSoft 11/26/2024 8:30 PM Andie Bridges RNBowel Sounds (All Quadrants)Active 11/26/2024 8:30 PM Andie Bridges RNGastrointestinal (WDL)X1 8:30 PM Andie Bridges RNAbdomen GdwtemsjiqDvhn37/12/2025 8:30 PM EDT Andie Fletcher RNGastrointestinal SymptomsNausea;Uvvqxtah43/12/2025 8:30 PM Andie Bridges RNBowel SoundsAll moyoqhluk09/12/2025 8:30 PM EDT Andie Fletcher RN * Peripheral VascularQuestionAnswerDate of AssessmentAuthorPeripheral Vascular (WDL)WDL1 8:30 PM Andie Bridges RN * MusculoskeletalQuestionAnswerDate of AssessmentAuthorMusculoskeletal (WDL)WDL 11/26/2024 8:30 PM Andie Bridges RN * PsychosocialQuestionAnswerDate of AssessmentAuthorPsychosocial (WDL)WDL 11/26/2024 8:30 PM Andie Bridges RN * Qureshi Fall RiskQuestionAnswerDate of AssessmentAuthorHistory of Falling, Immediate or Within 3 Hkpsmw656 7:34 PM Roseline Lopez RNSecondary Evpqhobde050/12/2025 7:34 PM Roseline Lopez RNAmbulatory Sfn192 7:34 PM Roseline Lopez RNIntravenous Therapy/Heparin Hmlb796 7:34 PM Roseline Lopez RNGait/Wvijwmvjezfj032/12/2025 7:34 PM Roseline Lopez RNMental Qmqdey274 7:34 PM Roseline Lopez RNMorse Fall Risk Zeefm315 7:34 PM Roseline Lopez RN * Cyrus ScaleQuestionAnswerDate of AssessmentAuthorBraden No Risk Interventions Continue to assess patient according to level of care11/26/2024 8:30 PM EDT Andie Fletcher, RNSensory Foyrqipofhx178/12/2025 8:30 PM Andie Bridges RNMoisture41 8:30 PM Andie Bridges, RNActivity4 11/26/2024 8:30 PM Andie Bridges RNMobility31 8:30 PM EDT Andie Fletcher RNNutrition21 8:30 PM Andie Bridges RN Friction and Rzyap516 8:30 PM Andie Bridges RNBraden Scale Lapdz6101 8:30 PM Andie Bridges RN * CardiacQuestionAnswerDate of AssessmentAuthorCardiac (WDL)WDL1 8:30 PM Andie Bridges RN * RespiratoryQuestionAnswerDate of AssessmentAuthorRespiratory (WDL)WDL 11/26/2024 8:30 PM Andie Bridges RN * Charting TypeQuestionAnswerDate of AssessmentAuthorCharting TypeShift gwhnnbmvuc46/12/2025 8:30 PM Andie Bridges RN * Patient's Stated Pain GoalAnswerDate of AssessmentAuthorNo pain11/26/2024 9:33 PM Andie Bridges RN * GenitourinaryQuestionAnswerDate of AssessmentAuthorGenitourinary (WDL)X 11/26/2024 8:30 PM Andie Bridges RN * NeurologicalQuestionAnswerDate of AssessmentAuthorNeuro (WDL)WDL1 8:30 PM Andie Bridges RN * Peytona Fall Risk InterventionsQuestionAnswerDate of AssessmentAuthor Peytona Fall Risk QxqegsrwvprgmUcyoqzxu89/12/2025 7:34 PM Roseline Lopez RN * Kris Coma ScaleQuestionAnswerDate of AssessmentAuthorBest Eye Response Sskllxjuqlb38/12/2025 8:30 PM Andie Bridges RNBest Verbal Response Vxaxbcsf74/12/2025 8:30 PM Andie Bridges RNBest Motor ResponseFollows syeaajek87/12/2025 8:30 PM Andie Bridges RNGlasgow Coma Scale Score15 11/26/2024 8:30 PM Andie Bridges RN * Pain AssessmentQuestionAnswerDate of AssessmentAuthorPain LocationAbdomen 11/26/2024 8:30 PM Andie Bridges RNPain UgqjhfteaxmYgvxv01/12/2025 8:30 PM Andie Bridges RNPain WvdiwjelgadgnAmozdwigichr26/12/2025 8:30 PM Andie Bridges RNPain DescriptorsPressure;Kffepb3911/26/2024 8:30 PM Andie Bridges RNPain QwgwjZlxfmgw69/12/2025 8:30 PM Andie Bridges RNPain TypeAcute pain11/26/2024 8:30 PM Andie Bridges RN Clinical ProgressionNot dkqktda9111/26/2024 8:30 PM Andie Bridges RNPain Assessment0-101 8:30 PM Andie Bridges RN * IntegumentaryQuestionAnswerDate of AssessmentAuthorSkin ColorAppropriate for race11/26/2024 8:30 PM Andie Bridges RNSkin Condition/TempWarm;Dry 11/26/2024 8:30 PM Andie Bridges RNIntegumentary (WDL)X1 8:30 PM Andie Bridges RN * Pain ScoreAnswerDate of IkjsskhmqhQmhtor061/12/2025 9:33 PM Andie Bridges RN * [place] Suicide Severity Rating ScaleQuestionAnswerDate of AssessmentAuthor1. Have [...] Andie Bridges RN documented in this encounter Plan of Treatment DateTypeDepartmentCare Team (Latest Contact Info)Qubttpliinw67/30/2025 9:00 AM EDTAppointment [facility] [address] [place] [address] Braxton Bellamy MD [address] [facility] [address] [facility] [place] [address] 12/14/2024 10:30 AM EDTAppointment [facility] X-Ray Imaging [address] [place] [address] 01/31/2025 11:00 AM ESTOffice Visit [facility] Heart at [facility] [address] [place] [address] Wali Collins MD [address] [place] [address] documented as of this encounter Visit Diagnoses Not on filedocumented in this encounter Care Teams Team MemberRelationshipSpecialtyStart DateEnd Thomas Alas MD [address] [facility] [address] [address] PCP - GeneralFamily Medicine08/17/24documented as of this encounter
--- OUTSIDE RECORDS SUMMARY | 2024-12-06 12:15 | XMS_ITS | Encounter Summary ---
Author Organization [facility] Address [address] [place] [address] Care Team Providers Care Durability Technician Name Role Phone Thomas Alas MD Primary Care Provider [phone] Encounter Details DateTypeDepartmentCare Team (Latest Contact Info)Utoinaqdfwu27/20/2025Travel Social History Tobacco UseTypesPacks/DayYears UsedDateSmoking Tobacco: NeverSmokeless Tobacco: NeverAlcohol UseStandard Drinks/WeekCommentsNot Currently0 (1 standard drink = 0.6 oz pure alcohol)[facility] UtilitiesAnswerDate RecordedIn the past 12 months [...] homeless or living in a halfway (including now)?No11/15/2024Hunger Vital SignAnswerDate RecordedWithin the past 12 months, you worried that your food would run out before you got the money to buymore.Never true11/15/2024Ran Out of Food in the Last YearNot on file 11/15/2024CommentsNoSex and Gender InformationValueDate RecordedSex Assigned at IaaanOsugua35/03/2025 3:45 PM EDTLegal OdwNpuhug56/30/2022 12:07 AM EDTGender NzdbzygeUxytle57/03/2025 3:45 PM EDTSexual OrientationHeterosexual or Wwlhlkxb67/03/2025 3:45 PM EDTdocumented as of this encounter Plan of Treatment DateTypeDepartmentCare Team (Latest Contact Info)Ztrdxylllwh34/30/2025 9:00 AM EDTAppointment [facility] Endoscopy [address] [place] [address] Braxton Bellamy MD [address] [facility] [address] [facility] [place] [address] 12/14/2024 10:30 AM EDTAppointment [facility] X-Ray Imaging [address] [place] [address] 01/31/2025 11:00 AM ESTOffice Visit [facility] at [facility] [address] [place] [address] Wali Collins MD [address] [place] [address] documented as of this encounter Visit Diagnoses Not on filedocumented in this encounter Care Teams Team MemberRelationshipSpecialtyStart DateEnd Date Thomas Alas MD [address] [facility] [address] [address] PCP - GeneralFamily Medicine08/17/24documented as of this encounter
--- OUTSIDE RECORDS SUMMARY | 2024-12-06 12:15 | XMS_ITS | Clinical Summary ---
Author Organization [facility] Address [address] [place] [address] Care Team Providers Care Electroencephalographic Technologist Name Role Phone Thomas Alas MD Primary Care Provider [phone] Allergies Active AllergyReactionsCriticalityNoted DateCommentsCodeine And Related 11/12/20179135Iaoznu24/13/2024 Medications MedicationSigDispense QuantityRefillsLast FilledStart DateEnd DateStatus metformin 500 MG Tab tablet Take 1,000 mg by mouth 2 times daily with meals.Active Levothyroxine 75 MCG tablet Take 1 tablet by mouth daily.Active Liothyronine Sodium (CYTOMEL PO) Take by mouth.Active topiramate 25 MG tablet Take 25 mg by mouth 2 times daily.Active topiramate 50 MG tablet 09/17/2020ctive escitalopram 20 MG tablet Take 1 tablet by mouth daily.10/07/2022ctive Ondansetron 4 MG Tab Dispersible tablet Take 1 tablet by mouth every 8 hours as needed for Nausea. Place on tongue 10 tablet 11/02/2022ctive Promethazine 25 MG tablet Take 1 tablet by mouth every 4 hours as needed (Nausea/Vomiting). 15 tablet 11/02/2022ctive predniSONE 5 MG tablet Take 3 tablets by mouth Daily (with dinner).11/22/2023ctive MIRTAZAPINE PO Take 30 mg by mouth.06/11/2023ctive busPIRone 10 MG tablet Take 1 tablet by mouth 2 times daily.Active traZODone 50 MG tablet Take 1 tablet by mouth at bedtime.12/27/2023ctive Active Problems ProblemNoted DateDiagnosed DateImpaired intestinal bggmdjfliq91/18/2024 Jejunostomy tube srinifw1106/07/2023Median arcuate ligament /14/2023 Dysfunction of sphincter of Oddi11/06/2022cquired mipfxzgxwarean49/10/2023 Intractable vomiting with rglljp8210/25/2022hronic vnvhiihsehqn41/20/2023Mixed anxiety depressive rpbmhqaq34/20/2023ipolar pimgeqev82/07/2023Obesity: body mass index of 35.0-39.91evere protein-calorie dnjfcjrwijob73/20/2021 Trauma and stressor-related tddfwicr30/06/2020Benign essential HTN09/25/2019 Overview (01/25/2024): Last Assessment & Plan: Assessment: not on meds,monitored per PCP BP 141/70 pulse 62 Obstructive sleep apnea socznptb91/23/2019 Overview (01/25/2024): wears mask every night Chronic fatigue /05/2019 Social History Tobacco UseTypesPacks/DayYears UsedDateSmoking Tobacco: NeverSmokeless Tobacco: NeverAlcohol UseStandard Drinks/WeekCommentsNo0 (1 standard drink = 0.6 oz pure alcohol)CommentsNoSex and Gender InformationValueDate RecordedSex Assigned at BirthNot on fileLegal EwxUzvlns46/28/2018 1:19 PM EDTGender Identity Oowwfq5611/12/2017 1:20 PM EDTSexual SqlzowycrrmYxxblesm70/14/2024 7:37 AM EST Last Filed Vital Signs Vital SignReadingTime TakenCommentsBlood Jvcsdvro287/8209 1:52 PM EDT Prxme621411/02/2022 1:52 PM CMCFmpqwfssskv07.8 ??C (98.3 ??F)11/02/2022 10:34 AM EDTRespiratory Gsgg317511/02/2022 1:52 PM EDTOxygen Pjlpmpfqox07%11/02/2022 10:34 AM EDTInhaled Oxygen Concentration--Xxqpom10.3 kg (188 lb)12/29/2023 10:23 AM WNZMwarpn670.6 cm (5' 6 )12/29/2023 10:23 AM ESTBody Mass Index30.34102/27/2023 10:23 AM EST Plan of Treatment Health MaintenanceDue DateLast DoneCommentsHEPATITIS C VIRUS NJXIVENLE71/17/1990 TSH1989HIV SCREENING DKKTBDQNYD48/17/2005HEP B VACCINE (1 of 3 - 19+ 3- dose series)2008CERVICAL CANCER SCREENING OVYZTUBYHH50/17/2011HPV VACCINE (1 - 3-dose SCDM series)2016COVID-19 VACCINE ( season) 501/05/2021, 06/23/2020INFLUENZA VACCINE (#1)509/, 11/16/2021, 01/01/2021, Additional history jgylwhFPXTFLJ42/07/202708/08/2016TDAP (ADULT)Iibzbmqdn48/07/2017PNEUMOCOCCAL VACCINE SERIESAged OutNo longer eligible based on patient's age to complete this topic Insurance * Guarantor: Corby Kong TypeRelation to PatientDate of BirthPhoneBilfairmont regional [facility] center AddressPersonal/KanvdaQbtl70/17[birth year][address] [place] [address] * Guarantor: Corby Kong TypeRelation to PatientDate of BirthPhoneBilfairmont regional medical center AddressPersonal/UmxiedWnfr45/[birth year][address] [address] Care Teams Team MemberRelationshipSpecialtyStart DateEnd Thomas Alas MD PCP - Ddnwenb12/14/24
[2024-12-06 13:17] LABS: Iron 36.0 ug/dL (50.0-170.0); Percent Iron Saturation 10.9 %; Total Iron Binding Capacity 330.0 ug/dL (250.0-450.0)
== END 2024-12-06 12:05 | disposition home or self-care (01) ==
LOC: LAB 12:06
PROVIDERS: PCP Family Medicine; Visit Provider Internal Medicine Cardiovascular Disease
DX: D62 Acute posthemorrhagic anemia (principal)
CPT/HCPCS: 83540; 83550

== ENCOUNTER 2024-12-07 14:09 | Emergency (ER) | payer MEDICAID, SELFPAY ==
--- OUTSIDE RECORDS SUMMARY | 2024-11-23 17:32 | XMS_ITS | Encounter Summary ---
Author Organization [facility] Address [address], [address] [place] [address] Care Team Providers Care Chisel Grinder Name Role Phone Thomas Alas MD Primary Care Provider [phone] Reason for Visit * ReasonCommentsUrinary RetentionPatient sent to the Emergency Department by her PCP for urinary retention. Patient reports that shehas not voided for over 24 hours and is experiencing severe pain pressure and nausea. Encounter Details DateTypeDepartmentCare Team (Latest Contact Info)Zylyyekgucf45/09/2025 5:32 PM EDT - 11/23/2024 8:26 PM EDTE[facility] [address] [place] [address] Shelley Sanz, DO [address] [place] [address] Acute urinary retention (Primary Dx); [...] Safety Domain Source: IP Abuse ScreeningAnswerDate RecordedPhysical yzxpzVoewrt82/09/2025 Verbal xftzcAhpptd78/09/2025Emotional ilnliOklvor71/09/2025Financial abuseDenies 11/23/2024Sexual vttxgAjeexv26/09/2025CommentsNoSex and Gender InformationValueDate RecordedSex Assigned at BirthNot on fileLegal SexFemale 04/12/2013 2:41 PM ESTGender IdentityNot on fileSexual OrientationNot on file documented as of this encounter Last Filed Vital Signs Vital SignReadingTime TakenCommentsBlood Wwlngrjj211/6511/23/2024 8:26 PM EDT Ktcds984511/23/2024 8:26 PM VARSjnaodoibob60.7 ??C (98.1 ??F)11/23/2024 8:26 PM EDTRespiratory Epwg8322 8:26 PM EDTOxygen Dplmvpbkgb61%11/23/2024 8:26 PM EDTInhaled Oxygen Concentration--Sscqoi59.6 kg (180 lb)11/23/2024 5:27 PM EDT Pptxny765.6 cm (5' 6 )11/23/2024 5:27 PM EDTBody [...] sent through Care Everywhere. * Urinary Retention (Maltese) documented in this encounter Medications at Time [...] MG tablet Take 1 tablet by mouth fwokaea85 ranolazine (RANEXA) 500 MG extended release tablet [...] tablet by mouth 2 times daily as tujsvf94/documented as of this encounter Plan of Treatment Not on file documented as of this encounter Procedures Procedure NamePriorityDate/TimeAssociated DiagnosisCommentsEKG 12-LEADRoutine 11/23/2024 6:44 PM EDT CBC WITH AUTO GQJUJNONYELVYWKE07/09/2025 6:16 PM EDT YPEJPQULZXAE15/09/2025 6:16 PM EDT BASIC METABOLIC GTMSYPJOU27/09/2025 6:16 PM EDT URINALYSIS WITH REFLEX TO BRYWXIOPLPY09/09/2025 5:40 PM EDT MICROSCOPIC BPYUSFDRCBIsgysew57/09/2025 5:40 PM EDT documented in this encounter Results * EKG 12 Lead (11/23/2024 6:44 PM EDT)ComponentValueRef RangeTest MethodAnalysis TimePerformed AtPathologist SignatureVentricular Vlfp86JDHOMVP [facility] Atrial Gttv98ALFOQYT [facility] RAD[facility]YP-R Ulcwmteo567ipPVYW [facility] RADIOLOGYQRS Hwcoqxgg39dxUDYQ MTH RADIOLOGYQ-T Mqfhryik436isGITW [facility] RADIOLOGYQTc Calculation (Bazett)486msMHPN [facility] Hcsp20ugjomwxCGXM MTH RADIOLOGYR Wkpv64ljquwecVYBS MTH RADIOLOGYT Mrwe70ahmgpkmAHYF MTH RADIOLOGYSpecimen (Source)Anatomical Location / LateralityCollection Method / VolumeCollection TimeReceived Time11/23/2024 6:44 PM EDT Narrative [facility] - 11/23/2024 11:05 PM EDT Normal [...] DOECG ORDERABLES Final ResultPerforming OrganizationAddressCity/State/ZIP CodePhone Number [facility] * Troponin (11/23/2024 6:16 PM EDT)ComponentValueRef RangeTest MethodAnalysis TimePerformed AtPathologist SignatureTroponin, High Sensitivity<60 - 14 ng/L 11/23/2024 6:[facility] [address] [facility] LABComment:High Sensitivity Troponin values cannot be compared with other Troponin methodologies.Specimen (Source)Anatomical Location / LateralityCollection Method / VolumeCollection TimeReceived TimeBloodBLOOD SPECIMEN / Uwwpqzc4811/23/2024 6:16 PM EDT1 7:20 PM EDT Narrative Authorizing ProviderResult TypeResult StatusChtayler Sanz DOCHEMISTRY ORDERABLESFinal ResultPerforming OrganizationAddressCity/State/ZIP CodePhone Number [facility] [address] [id number] [phone] * (ABNORMAL) Basic Metabolic Panel (11/23/2024 6:16 PM EDT)ComponentValueRef RangeTest MethodAnalysis TimePerformed AtPathologist JtamtqgzpIacmhl070314 - 145 mmol/L1 6:16 PM [facility] LABPotassium3.7 3.7 - 5.3 mmol/L1 6:16 PM [facility] LABChloride 41877 - 107 mmol/L1 6:16 PM [facility] DLBSH160 20 - 31 mmol/L1 6:16 PM [facility] LABAnion Gap9 9 - 16 mmol/L1 6:16 PM [facility] FQHNnaeolm4802 - 99 mg/dL11/23/2024 6:16 PM [facility] DNNJRJ53 - 20 mg/dL11/23/2024 6:16 PM [facility] LABCreatinine0.80.50 - 0.90 mg/dL11/23/2024 6:16 PM [facility] LABEst, Glom Filt Rate>90>60 mL/min/1.33d47211/23/2024 6:16 PM [facility] Comment: ? These results are not [...] therapy that affects renal tubular secretion. BUN/Creatinine Cuaxf660 - 6:16 PM [facility] LABCalcium8.5(L)8.6 - 10.4 mg/dL11/23/2024 6:16 PM [facility] LABSpecimen (Source)Anatomical Location / LateralityCollection Method / VolumeCollection TimeReceived TimeBloodBLOOD SPECIMEN / Oautlpr9711/23/2024 6:16 PM EDT1 6:30 PM EDT Narrative Authorizing ProviderResult TypeResult StatusChtayler Sanz DOCHEMISTRY ORDERABLESFinal ResultPerforming OrganizationAddressCity/State/ZIP CodePhone Number [facility] [address] [phone] * (ABNORMAL) CBC with Auto Differential (11/23/2024 6:16 PM EDT)ComponentValue Ref RangeTest MethodAnalysis TimePerformed AtPathologist SignatureWBC6.03.5 - 11.3 k/uL11/23/2024 6:16 PM [facility] LABRBC3.41(L)3.95 - 5.11 m/uL11/23/2024 6:16 PM [facility] LABHemoglobin 10.0(L)11.9 - 15.1 g/dL11/23/2024 6:16 PM [facility] Wtmbtljoqp61.9(L)36.3 - 47.1 %11/23/2024 6:16 PM [facility] UHPFWA37.682.6 - 102.9 fL11/23/2024 6:16 PM [facility] LSHTRN37.325.2 - 33.5 pg11/23/2024 6:16 PM [facility] EVZNBLK38.428.4 - 34.8 g/dL11/23/2024 6:16 PM [facility] GPUOSW87.811.8 - 14.4 %11/23/2024 6:16 PM [facility] DCKLiicucwud058891 - 453 k/uL11/23/2024 6:16 PM [facility] AAFXYZ26.68.1 - 13.5 fL11/23/2024 6:16 PM [facility] LABNRBC Automated0.00.0 per 100 WBC11/23/2024 6:16 PM [facility] LABNeutrophils %6036 - 65 %11/23/2024 6:16 PM [facility] LABLymphocytes %3024 - 43 %11/23/2024 6:16 PM [facility] LABMonocytes %73 - 12 %11/23/2024 6:16 PM [facility] LABEosinophils %21 - 4 %11/23/2024 6:16 PM [facility] LABBasophils %10 - 2 %11/23/2024 6:16 PM [facility] LABImmature Granulocytes %00 %11/23/2024 6:16 PM EDT [facility] LABNeutrophils Absolute3.571.50 - 8.10 k/uL 11/23/2024 6:16 PM [facility] LABLymphocytes Absolute1.82 1.10 - 3.70 k/uL11/23/2024 6:16 PM [facility] Monocytes Absolute0.440.10 - 1.20 k/uL11/23/2024 6:16 PM [facility] LABEosinophils Absolute0.140.00 - 0.44 k/uL11/23/2024 6:16 PM [facility] LABBasophils Absolute0.050.00 - 0.20 k/uL 11/23/2024 6:16 PM [facility] LABImmature Granulocytes Absolute<0.030.00 - 0.30 k/uL11/23/2024 6:16 PM [facility] LABSpecimen (Source)Anatomical Location / LateralityCollection Method / VolumeCollection TimeReceived TimeBloodBLOOD SPECIMEN / Vaqpnxr2811/23/2024 6:16 PM EDT1 6:30 PM EDT Narrative Authorizing ProviderResult TypeResult StatusChristina R Sanz DOHEMATOLOGY ORDERABLESFinal ResultPerforming OrganizationAddressCity/State/ZIP CodePhone Number [facility] [address] [place], [place] [address] [phone] * (ABNORMAL) Microscopic Urinalysis (11/23/2024 5:40 PM EDT)ComponentValueRef RangeTest MethodAnalysis TimePerformed AtPathologist SignatureWBC, UA2 TO 50 - 5 /HPF11/23/2024 5:40 PM [facility] LABRBC, UA0 TO 20 - 2 /HPF11/23/2024 5:40 PM [facility] LABEpithelial Cells, UA 0 TO 20 - 25 /HPF11/23/2024 5:40 PM [facility] LABRenal Epithelial, UA0 TO 20 /HPF11/23/2024 5:40 PM [facility] LABBacteria, UATRACE(A)None11/23/2024 5:40 PM [facility] LABMucus, UATRACE(A)None11/23/2024 5:40 PM [facility] Specimen (Source)Anatomical Location / LateralityCollection Method / Volume Collection TimeReceived Time11/23/2024 5:40 PM EDT1 6:08 PM EDT Narrative Authorizing ProviderResult TypeResult StatusChristrevin BAKER ORDERABLES Final ResultPerforming OrganizationAddressCity/State/ZIP CodePhone Number [facility] [address] [phone] [phone] * (ABNORMAL) Urinalysis with Reflex to Culture (11/23/2024 5:40 PM EDT)Component ValueRef RangeTest MethodAnalysis TimePerformed AtPathologist SignatureColor, UAOrange(A)Ktperf6511/23/2024 5:40 PM [facility] Turbidity NVYkbgdDrpim43/09/2025 5:40 PM [facility] Glucose, UrINTERPRET WITH CAUTION DUE TO INTENSE COLOR OF URINE.(A)NEGATIVE mg/dL11/23/2024 5:40 PM [facility] LABBilirubin, Urine INTERPRET WITH CAUTION DUE TO INTENSE COLOR OF URINE.(A)JKLMVKSO28/09/2025 5:40 PM [facility] LABKetones, UrineINTERPRET WITH CAUTION DUE TO INTENSE COLOR OF URINE.(A)NEGATIVE mg/dL11/23/2024 5:40 PM EDT [facility] LABSpecific [place], UA1.025(H)1.010 - 1.020 11/23/2024 5:40 PM [facility] LABUrine HgbINTERPRET WITH CAUTION DUE TO INTENSE COLOR OF URINE.(A)RLNYFNEM63/09/2025 5:40 PM [facility] LABpH, UrineINTERPRET WITH CAUTION DUE TO INTENSE COLOR OF URINE.5.0 - 9.010 5:40 PM [facility] Protein, UAINTERPRET WITH CAUTION DUE TO INTENSE COLOR OF URINE.(A)NEGATIVE mg/dL11/23/2024 5:40 PM [facility] LABUrobilinogen, Urine INTERPRET WITH CAUTION DUE TO INTENSE COLOR OF URINE.0.0 - 1.0 EU/dL11/23/2024 5:40 PM [facility] LABNitrite, UrineINTERPRET WITH CAUTION DUE TO INTENSE COLOR OF URINE.(A)VIEUJOCH09/09/2025 5:40 PM [facility] LABLeukocyte Esterase, UrineINTERPRET WITH CAUTION DUE TO INTENSE COLOR OF URINE.(A)ZRVYTCEQ82/09/2025 5:40 PM [facility] LABSpecimen (Source)Anatomical Location / LateralityCollection Method / VolumeCollection TimeReceived OrhfQehfr11/09/2025 5:40 PM EDT1 6:08 PM EDT Narrative Authorizing ProviderResult TypeResult StatusChtayler BAKER ORDERABLES Final ResultPerforming OrganizationAddressCity/State/ZIP CodePhone Number [facility] [address] [place] [address], [facility] [phone] documented in this encounter Visit Diagnoses Diagnosis [...] DateEnd Date Thomas Alas MD [address] [phone] PCP - GeneralFamily Medicine11/08/24documented as of this encounter
--- OUTSIDE RECORDS SUMMARY | 2024-11-26 19:34 | XMS_ITS | Encounter Summary ---
Author Organization [facility] Address [address] [place] [address] Care Team Providers Care Residential Real Estate Agent Name Role Phone Thomas Alas MD Primary Care Provider [phone] Reason for Referral * (Emergency) - Pending ReviewSpecialtyDiagnoses / ProceduresReferred By Contact Referred To Contact Procedures ECG 12 lead Israel Jeong MD [address] [place] [address] Phone: tel: fax: Referral IDStatusReasonStart DateExpiration DateVisits RequestedVisits [id number] Reason for Visit * ReasonCommentsDifficulty UrinatingDizziness Encounter Details DateTypeDepartmentCare Team (Latest Contact Info)Zvwpuffdzaq14/12/2025 7:34 PM EDT - 11/26/2024 9:45 PM EDTEmergency [facility] Emergency [address] [place] [address] Israel Jeong MD [address] [place] [address] Acute UTI (Primary Dx) Discharge Disposition: Home or Self Care () Social History Tobacco UseTypesPacks/DayYears UsedDateSmoking Tobacco: NeverSmokeless Tobacco: NeverAlcohol UseStandard Drinks/WeekCommentsNot Currently0 (1 standard drink = 0.6 oz pure alcohol)[facility] UtilitiesAnswerDate RecordedIn the past 12 months has [...] homeless or living in a mcc (including now)?No11/15/2024Hunger Vital SignAnswerDate RecordedWithin the past 12 months, you worried that your food would run out before you got the money to buymore.Never true11/15/2024Ran Out of Food in the Last YearNot on file 11/15/2024CommentsNoSex and Gender InformationValueDate RecordedSex Assigned at IvminXpzjkj86/03/2025 3:45 PM EDTLegal LslLsqemx15/30/2022 12:07 AM EDTGender RqftfrvrPeuugr98/03/2025 3:45 PM EDTSexual OrientationHeterosexual or Qxqzudln00/03/2025 3:45 PM EDTdocumented as of this encounter Last Filed Vital Signs Vital SignReadingTime TakenCommentsBlood Nomysvgt300/6011/26/2024 9:25 PM EDT Ifvvx181011/26/2024 9:25 PM OPOYeywsuckzpe50.6 ??C (97.9 ??F)11/26/2024 7:34 PM EDTRespiratory Dapn9266 9:25 PM EDTOxygen Nkoyfrnobp15%11/26/2024 9:25 PM EDTInhaled Oxygen Concentration--Gpendl65.6 kg (180 lb)11/26/2024 7:34 PM EDT Elbrcm999.6 cm (5' 6 )11/26/2024 7:34 PM EDTBody Mass Index29.0511/26/2024 7:34 PM EDTdocumented in this encounter Functional Status * QuestionAnswerDate of NslckkofvrEwjkrlRN039/6011/26/2024 9:25 PM Andie Bridges RNPulse7311/26/2024 9:25 PM Andie Bridges RN * Qureshi Fall RiskQuestionAnswerDate of AssessmentAuthorHistory of Falling, Immediate or Within 3 Toepcv788 7:34 PM Roseline Lopez RNSecondary Wamnwuxgm278/12/2025 7:34 PM Roseline Lopez RNAmbulatory Box764 7:34 PM Roseline Lopez RNIntravenous Therapy/Heparin Hvzs034 7:34 PM Roseline Lopez RNGait/Riaahqqcduuo293/12/2025 7:34 PM Roseline Lopez RNMental Uqltzi250 7:34 PM Roseline Lopez RNMorse Fall Risk Gjcgq075 7:34 PM Roseline Lopez RN * Cyrus ScaleQuestionAnswerDate of AssessmentAuthorBraden No Risk Interventions Continue to assess patient according to level of care11/26/2024 8:30 PM EDT Andie Fletcher RNSensory Omzebrgbhlj166/12/2025 8:30 PM Andie Bridges RNMoisture41 8:30 PM Andei Bridges RNActivity4 11/26/2024 8:30 PM Andie Bridges RNMobility31 8:30 PM Andie Muhammad RNNutrition21 8:30 PM Andie Bridges RN Friction and Wbqsh057 8:30 PM Andie Bridges RNBraden Scale Myslx2856/12/2025 8:30 PM Andie Bridges RN * Patient's Stated Pain GoalAnswerDate of AssessmentAuthorNo pain11/26/2024 9:33 PM Andie Bridges RN * Nahma Fall Risk InterventionsQuestionAnswerDate of AssessmentAuthor Nahma Fall Risk VtcctjbugniyyKueomygj96/12/2025 7:34 PM Roseline Lopez RN * Pain Assessment TimerQuestionAnswerDate of AssessmentAuthorRestart Pain Assessment ZiyodFla13/12/2025 9:33 PM Andie Bridges RN * In the past 12 months, have you used drugs other than those required for medical reasons?AnswerDate of HppzvvqsgbJdmiyt447/12/2025 7:35 PM Roseline Lopez RN * Sepsis Model ScoresQuestionAnswerDate of AssessmentAuthorEarly Detection of Sepsis Score1.4611/26/2024 9:31 PM EDTChelis, BatchqEarly Detection of Sepsis Feutr954 9:31 PM EDGino Batchq * Pain AssessmentQuestionAnswerDate of AssessmentAuthorPain LocationAbdomen 11/26/2024 8:30 PM Andie Bridges RNPain IannforiuweGaxof90/12/2025 8:30 PM Andie Bridges RNPain ZdaoxxmtemyurIdqrhxhrkbxd47/12/2025 8:30 PM nAdie Bridges RNPain DescriptorsPressure;Dqqrcg0911/26/2024 8:30 PM Andie Bridges RNPain GdayoLmyhzat85/12/2025 8:30 PM Andie Bridges RNPain TypeAcute pain11/26/2024 8:30 PM Andie Bridges RN Clinical ProgressionNot mgznssh2611/26/2024 8:30 PM Andie Bridges RNPain Assessment0-101 8:30 PM Andie Bridges RN * Pain ScoreAnswerDate of UhqklhugvlTaxepi856/12/2025 9:33 PM Andie Bridges RN * Audit [...] Andie Bridges RN * Vital SignsQuestionAnswerDate of IatsgmjlacThvdsaKM853/6011/26/2024 9:25 PM Andie Bridges RNTemp97.91 7:34 PM Roseline Lopez RNTemp wknSfqy4211/26/2024 7:34 PM Roseline Lopez RNPulse7311/26/2024 9:25 PM [...] RNGastrointestinal (WDL)X1 8:30 PM Andie Bridges RNAbdomen WwshgvctpcWbta22/12/2025 8:30 PM EDT Andie Fletcher RNGastrointestinal SymptomsNausea;Avjpdbga76/12/2025 8:30 PM Andie Bridges RNBowel SoundsAll klrhskpli49/12/2025 8:30 PM EDT Andie Fletcher RN * Peripheral VascularQuestionAnswerDate of AssessmentAuthorPeripheral Vascular (WDL)WDL1 8:30 PM Andie Bridges RN * MusculoskeletalQuestionAnswerDate of AssessmentAuthorMusculoskeletal (WDL)WDL 11/26/2024 8:30 PM Andie Bridges RN * PsychosocialQuestionAnswerDate of AssessmentAuthorPsychosocial (WDL)WDL 11/26/2024 8:30 PM Andie Bridges RN * Qureshi Fall RiskQuestionAnswerDate of AssessmentAuthorHistory of Falling, Immediate or Within 3 Kdkren088 7:34 PM Roseline Lopez RNSecondary Gorctnrvw965/12/2025 7:34 PM Roseline Lopez RNAmbulatory Iwj218 7:34 PM Roseline Lopez RNIntravenous Therapy/Heparin Dtgl239 7:34 PM Roseline Lopez RNGait/Vuowoasgcfva727/12/2025 7:34 PM Roseline Lopez RNMental Zstcsr516/12/2025 7:34 PM Roseline Lopez RNMorse Fall Risk Vtzsy310 7:34 PM Roseline Lopez RN * Cyrus ScaleQuestionAnswerDate of AssessmentAuthorBraden No Risk Interventions Continue to assess patient according to level of care11/26/2024 8:30 PM EDT Andie Fletcher, RNSensory Hxyhsltqsev747/12/2025 8:30 PM Andie Bridges RNMoisture41 8:30 PM Andie Bridges, RNActivity4 11/26/2024 8:30 PM Andie Bridges RNMobility31 8:30 PM EDT Andie Fletcher RNNutrition21 8:30 PM Andie Bridges RN Friction and Bofzl575 8:30 PM Andie Bridges RNBraden Scale Chvty4591 8:30 PM Andie Bridges RN * CardiacQuestionAnswerDate of AssessmentAuthorCardiac (WDL)WDL1 8:30 PM Andie Bridges RN * RespiratoryQuestionAnswerDate of AssessmentAuthorRespiratory (WDL)WDL 11/26/2024 8:30 PM Andie Bridges RN * Charting TypeQuestionAnswerDate of AssessmentAuthorCharting TypeShift rocoklehyi00/12/2025 8:30 PM Andie Bridges RN * Patient's Stated Pain GoalAnswerDate of AssessmentAuthorNo pain11/26/2024 9:33 PM Andie Bridges RN * GenitourinaryQuestionAnswerDate of AssessmentAuthorGenitourinary (WDL)X 11/26/2024 8:30 PM Andie Bridges RN * NeurologicalQuestionAnswerDate of AssessmentAuthorNeuro (WDL)WDL1 8:30 PM Andie Bridges RN * Nahma Fall Risk InterventionsQuestionAnswerDate of AssessmentAuthor Nahma Fall Risk GaruxkmmpnnuuEwhyrybm97/12/2025 7:34 PM Roseline Lopez RN * [place] Coma ScaleQuestionAnswerDate of AssessmentAuthorBest Eye Response Vngifkbxuic42/12/2025 8:30 PM Andie Bridges RNBest Verbal Response Zzoimzam05/12/2025 8:30 PM Andie Bridges RNBest Motor ResponseFollows pjwmepns17/12/2025 8:30 PM Andie Bridges RNGlasgow Coma Scale Score15 11/26/2024 8:30 PM Andie Bridges RN * Pain AssessmentQuestionAnswerDate of AssessmentAuthorPain LocationAbdomen 11/26/2024 8:30 PM Andie Bridges RNPain CwvpiiulvcnJgycj79/12/2025 8:30 PM Andie Bridges RNPain JzgzdyyrzjnwaQhpmdtipyvpb70/12/2025 8:30 PM Andie Bridges RNPain DescriptorsPressure;Narpaw1911/26/2024 8:30 PM Andie Bridges RNPain QarhdGqohhav58/12/2025 8:30 PM Andie Bridges RNPain TypeAcute pain11/26/2024 8:30 PM Andie Bridges RN Clinical ProgressionNot lfezsna6011/26/2024 8:30 PM Andie Bridges RNPain Assessment0-101 8:30 PM Andie Bridges RN * IntegumentaryQuestionAnswerDate of AssessmentAuthorSkin ColorAppropriate for race11/26/2024 8:30 PM Andie Bridges RNSkin Condition/TempWarm;Dry 11/26/2024 8:30 PM Andie Bridges RNIntegumentary (WDL)X1 8:30 PM Andie Bridges RN * Pain ScoreAnswerDate of MejqqjpjnkNwntlr998/12/2025 9:33 PM Andie Bridges RN * [place] Suicide Severity Rating ScaleQuestionAnswerDate of AssessmentAuthor1. Have you wished you were or wished you could go to sleep and not wake up? No11/26/2024 7:34 PM Roseline Lopez RN2. Have you actually had any thoughts of killing yourself?No11/26/2024 7:34 PM Roseline Lopez RN6. Have you ever done anything, started [...] Care Everywhere. * Urinary Tract Infection Adult (Martiniquais) documented in this encounter Medications at Time [...] the skin every 3rd (third) day. HYDROcodone-acetaminophen ([place]) 5-325 mg tablet Take 2 tablets by [...] Course & MDM Diagnoses as of 11/26/24 1822 Acute UTI Medical Decision Making The patient [...] Urine Normal Bilirubin, Urine Small (*) Specific Ute, Urine 1.018 Ketones, Urine Negative Blood, Urine [...] Procedure Abnormality Status --------- ------ CBC auto differential[[id number]] Abnormal Final result Please view results for [...] HYDROcodone-acetaminophen 5-325 mg tablet Commonly known as: [place] hydrocortisone 10 mg tablet Commonly known as: [...] Your Medications These medications were sent to [facility]/pharmacy #[id number] - [place], [place] - [address] [facility] [address] [address] cefpodoxime 200 mg tablet Diagnosis: 1. Acute [...] signing this emergency patient record, the Emergency Physician/SAFETY ADMINISTRATOR/PA-C attests that all entries made into the electronic medical record by the scribe prior to the Physician/SAFETY ADMINISTRATOR/PA-C signature reflect an accurate accounting of the evaluation and care rendered by that Emergency Physician/SAFETY ADMINISTRATOR/PA-C. The Emergency Physician/SAFETY ADMINISTRATOR/PA-C assumes full responsibility for those entries. The Emergency Physician/SAFETY ADMINISTRATOR/PA-C also attests that any patient testing or [...] Drug use: Never Israel Jeong MD 11/26/24 1086 * Roseline Matos RN - 11/26/2024 7:32 PM EDT Pt arrives for urinary problems. Pt claims she has a catheter and is not able to urinate. Pt also reports dizziness that has been going on for a few days. documented in this encounter Plan of Treatment DateTypeDepartmentCare Team (Latest Contact Info)Qjexptdsprr69/30/2025 9:00 AM EDTAppointment [facility] [address] [place] [address] Braxton Bellamy MD [address] [facility] [place] [address] 12/14/2024 10:30 AM EDTAppointment [facility] X-[facility] Imaging [address] [place] [address] 01/31/2025 11:00 AM ESTOffice Visit [facility] [address] [facility] [place] [address] Wali Collins MD [address] [place] [address] documented as of this encounter Procedures Procedure NamePriorityDate/TimeAssociated DiagnosisCommentsURINALYSIS MICROSCOPIC WITH REFLEX FWLNRQVRDBW75/12/2025 8:27 PM EDT URINALYSIS WITH REFLEX WUHAYYWTTZE87/12/2025 8:27 PM EDT SERUM ILCZXORPKDKSBTP59/12/2025 8:27 PM EDT XR CHEST 1 AIROVYFY61/12/2025 8:17 PM EDT ECG 12-NPBEBSTB54/12/2025 8:13 PM EDT HIGH SENSITIVITY TROPONIN ISTAT1 8:05 PM EDT CBC WITH AUTO EKTHFYPYEVAJGHUS55/12/2025 8:05 PM EDT CBC AND NFPQKPJSYRJFKMYV39/12/2025 8:05 PM EDT TJZYRAGMEE80/12/2025 8:05 PM EDT COMPREHENSIVE METABOLIC PLLMYGLHH60/12/2025 8:05 PM EDT documented in this encounter Results * Urinalysis microscopic with reflex culture (11/26/2024 8:27 PM EDT)Component ValueRef RangeTest MethodAnalysis TimePerformed AtPathologist SignatureRBC, Urine0-2None Seen, 0-2 /HPF11/26/2024 8:[address] [facility]) WBC, Urine0-2None Seen, 0-2 /HPF11/26/2024 8:[address] [facility] ([facility])Squamous Epithelial, UrineNone SeenNone Seen, Occasional, Few /LPF 11/26/2024 8:[address] [facility] ([facility])Mucus, UrineOccasionalNone Seen, Occasional, Few /LP11/26/2024 8:[address] [facility] ([facility]) Specimen (Source)Anatomical Location / LateralityCollection Method / Volume Collection TimeReceived TimeUrineUrine specimen obtained by clean catch procedure / UnknownNon-blood Collection / Hsmblec5811/26/2024 8:27 PM EDT 11/26/2024 8:33 PM EDT Narrative Authorizing ProviderResult TypeResult StatusDustin Jean-Paul PACECY URINE ORDERABLES Final ResultPerforming OrganizationAddressCity/State/ZIP CodePhone Number [facility]) [address] [place] [address] * Serum Qualitative (11/26/2024 8:27 PM EDT)ComponentValueRef Range Test MethodAnalysis TimePerformed AtPathologist SignaturehCG, SerumNegative 11/26/2024 8:[address] [facility] ([facility])Specimen (Source)Anatomical Location / LateralityCollection Method / VolumeCollection TimeReceived Time BloodVenous blood specimen / UnknownExisting Catheter / Jbhlcty0311/26/2024 8:27 PM EDT1 8:33 PM EDT Narrative Authorizing ProviderResult TypeResult StatusDustin Jean-Paul PACECY BLOOD ORDERABLES Final ResultPerforming OrganizationAddressCity/State/ZIP CodePhone Number [facility]) [address] [place] [address] * (ABNORMAL) Urinalysis with reflex culture (11/26/2024 8:27 PM EDT)Component ValueRef RangeTest MethodAnalysis TimePerformed AtPathologist SignatureColor, UrineDark-Yellow(A)Colorless, Yellow, Light-Zzhmza6611/26/2024 8:[address] [facility] ([facility])Clarity, QsylbBojktNqscm13/12/2025 8:[address] [facility] ([facility])pH, Urine7.05.0 - 8.0 pH11/26/2024 8:[address] [facility] ([facility])Leukocytes, UrineTrace(A)Yaixvnyn94/12/2025 8:52 PM [facility] ([facility])Nitrite, UrinePositive(A)Ocafamns48/12/2025 8:[address] [facility] ([facility])Protein, UrineNegativeNegative mg/dL11/26/2024 8:[address] [facility] ([facility])Glucose, UrineNormalNormal mg/dL 11/26/2024 8:[address] [facility] ([facility])Bilirubin, UrineSmall(A) Yjrcbypv07/12/2025 8:[address] [facility] ([facility])Specific Ute, Urine1.0181.010 - 1.9686511/26/2024 8:[address] [facility] ([facility]) Ketones, UrineNegativeNegative mg/dL11/26/2024 8:[address] [facility] ([facility])Blood, GvldmXccegtnwMygqjyzq04/12/2025 8:[address] [facility] ([facility])Urobilinogen, Urine4.0(A)Normal mg/dL11/26/2024 8:[address] [facility] ([facility])Specimen (Source)Anatomical Location / Laterality Collection Method / VolumeCollection TimeReceived TimeUrineUrine specimen obtained by clean catch procedure / UnknownNon-blood Collection / Unknown 11/26/2024 8:27 PM EDT1 8:33 PM EDT Narrative Authorizing ProviderResult TypeResult StatusDustin Jean-Paul ANNIKA URINE ORDERABLES Final ResultPerforming OrganizationAddressCity/State/ZIP CodePhone Number [facility] [address] [place] [address] * XR chest 1 view (11/26/2024 8:17 [...] PM EDT)ComponentValueRef RangeTest MethodAnalysis TimePerformed AtPathologist SignatureVentricular Ocph16FCQXO MUSEAtrial Rate 70BPMGE MUSEPR Stfnffct144ylCD MUSEQRS VAPGVVHU45zvAJ MUSEQT Etnjgmnl793jpCR MUSEQTC CALCULATION(BAZETT)470msGE MUSEP Vjtj46kyvwfpmVV MUSER-Vicv23bpxjttpAA MUSET Wave Jguo15dtgoosgRB MUSESpecimen (Source)Anatomical Location / LateralityCollection Method / [...] SignatureAuto WBC5.234.00 - 10.60 10*3/uL11/26/2024 8:[address] [facility] ([facility])RBC3.37(L)3.80 - 5.00 10*6/uL11/26/2024 8:[address] [facility] ([facility])Hemoglobin9.9 (L)12.0 - 15.0 g/dL11/26/2024 8:[address] [facility] ([facility])Hematocrit 29.9(L)36.0 - 45.0 %11/26/2024 8:[address] [facility] ([facility])MCV88.7 82.0 - 98.0 fL11/26/2024 8:[address] [facility] ([facility])MCH29.427.0 - 33.0 pg11/26/2024 8:[address] [facility] ([facility])MCHC33.132.0 - 35.0 g/dL11/26/2024 8:[address] [facility])RDW14.011.5 - 15.0 % 11/26/2024 8:[address] [facility] ([facility])Neutrophils %44.540.0 - 72.0 % 11/26/2024 8:[address] [facility] ([facility])Lymphocytes %40.520.0 - 45.0 % 11/26/2024 8:[address] [facility] ([facility])Monocytes %10.95.0 - 12.0 % 11/26/2024 8:[address] [facility] ([facility])Eosinophils %3.10.0 - 6.0 % 11/26/2024 8:[address] [facility] ([facility])Basophils %0.80.0 - 1.0 % 11/26/2024 8:[address] [facility] ([facility])Neutrophils Absolute2.331.60 - 7.60 10*3/uL11/26/2024 8:[address] [facility] ([facility])Lymphocytes Absolute2.121.20 - 4.00 10*3/uL11/26/2024 8:[address] [facility] ([facility])Monocytes Absolute0.570.10 - 1.00 10*3/uL11/26/2024 8:[address] [facility] ([facility])Eosinophils Absolute0.160.00 - 0.50 10*3/uL11/26/2024 8:[address] [facility] ([facility])Basophils Absolute0.040.00 - 0.20 10*3/uL 11/26/2024 8:[address] [facility] ([facility])Zaikjpwkl893624 - 400 10*3/uL 11/26/2024 8:[address] [facility])nRBC %0.00 %11/26/2024 8:[address] [facility] ([facility])Immature Granulocytes %0.20.0 - 1.0 %11/26/2024 8:[address] [facility] ([facility])Immature Granulocytes Absolute0.010.00 - 0.20 10*3/uL11/26/2024 8:[address] [facility] ([facility])Specimen (Source) Anatomical Location / LateralityCollection Method / VolumeCollection Time Received TimeBloodVenous blood specimen / UnknownExisting Catheter / Unknown 11/26/2024 8:05 PM EDT1 8:13 PM EDT Narrative Authorizing ProviderResult TypeResult StatusDustin Jean-Paul ANNIKA BLOOD ORDERABLES Final ResultPerforming OrganizationAddressCity/State/ZIP CodePhone Number [facility]) [address] [place] [address] * HS Troponin I (11/26/2024 8:05 PM EDT)ComponentValueRef RangeTest Method Analysis TimePerformed AtPathologist SignatureHigh Sensitivity Troponin I<2<15 ng/L1 8:[address] [facility] ([facility])Specimen (Source) Anatomical Location / LateralityCollection Method / VolumeCollection Time Received TimeBloodVenous blood specimen / UnknownExisting Catheter / Unknown 11/26/2024 8:05 PM EDT1 8:13 PM EDT Narrative Authorizing ProviderResult TypeResult StatusDustin Jean-Paulladi ROBLERO BLOOD ORDERABLES Final ResultPerforming OrganizationAddressCity/State/ZIP CodePhone Number [facility]) [address] [place] [address] * Lipase (11/26/2024 8:05 PM EDT)ComponentValueRef RangeTest MethodAnalysis Time Performed AtPathologist TbmxjtvpxYusunv8969 - 82 U/L1 8:[address] [facility])Specimen (Source)Anatomical Location / Laterality Collection Method / VolumeCollection TimeReceived TimeBloodVenous blood specimen / UnknownExisting Catheter / Syirmlc0311/26/2024 8:05 PM EDT1 8:13 PM EDT Narrative Authorizing ProviderResult TypeResult StatusDustin Jean-Paul ANNIKA BLOOD ORDERABLES Final ResultPerforming OrganizationAddressCity/State/ZIP CodePhone Number [facility] ([facility]) [address] [place] [address] * (ABNORMAL) Comprehensive metabolic panel (11/26/2024 8:05 PM EDT)Component ValueRef RangeTest MethodAnalysis TimePerformed AtPathologist SignatureSodium 582565 - 145 mmol/L1 8:[address] [facility])Potassium 3.73.5 - 5.1 mmol/L1 8:[address] [facility])Xsgrscwv364 (H)98 - 107 mmol/L1 8:[address] [facility])NM32336 - 31 mmol/L1 8:[address] [facility])Anion Gap97 - 20 mmol/L 11/26/2024 8:[address] [facility])BUN97 - 25 mg/dL11/26/2024 8:[address] [facility])Creatinine0.59(L)0.60 - 1.20 mg/dL 11/26/2024 8:[address] [facility])BUN/Creatinine Ratio15.3 11/26/2024 8:[address] [facility])Sklwarw3999 - 100 mg/dL 11/26/2024 8:[address] [facility])Calcium7.4(L)8.6 - 10.3 mg/dL 11/26/2024 8:[address] [facility])ZRU3447 - 39 U/L1 8:[address] [facility])ALT (SGPT)127 - 52 U/L1 8:[address] [facility])Alkaline Bbjbjdgrjti8998 - 104 U/L1 8:[address] [facility])Total Protein5.6(L)6.0 - 8.3 g/dL11/26/2024 8:[address] [facility])Albumin3.63.5 - 5.7 g/dL11/26/2024 8:[address] [facility])Total Bilirubin0.2(L)0.3 - 1.0 mg/dL11/26/2024 8:[address] [facility])qFSH909.5>60.0 mL/min/1.73m* 8:[address] [facility])Comment:[facility]???s estimated glomerular filtration rate (eGFR) will no [...] TimeBloodVenous blood specimen / UnknownExisting Catheter / [id number]/26/2024 8:05 PM EDT1 8:13 PM EDT Narrative Authorizing ProviderResult TypeResult StatusDustin Jean-Paul ANNIKA BLOOD ORDERABLES Final ResultPerforming OrganizationAddressCity/State/ZIP CodePhone Number [facility] [address] [place] [address] documented in this encounter Visit Diagnoses Diagnosis Acute UTI- Primary Urinary tract infection, site not specified documented in this encounter Administered Medications Medication OrderMAR ActionAction DateDoseRateSite cefpodoxime (Vantin) tablet 200 mg 200 mg, oral, Once, On 11/26/24 at 2115, For 1 dose, Suspected Indication (Select all that apply): Urinary Tract Infection, Type of Urinary Tract Infection: Uncomplicated Given11/26/2024 9:33 PM [id number] mg diphenhydrAMINE (BENADryl) injection 25 mg 25 [...] Teams Team MemberRelationshipSpecialtyStart DateEnd Thomas Alas MD 16 [address] [place], [place] [id number] PCP - GeneralFamily Medicine08/17/24documented as of this encounter
--- OUTSIDE RECORDS SUMMARY | 2024-12-02 10:18 | XMS_ITS | Encounter Summary ---
Author Organization [facility] Address [address], [address] [place] [address] Care Team Providers Care Chart Collector Name Role Phone Thomas Alas MD Primary Care Provider [phone] Reason for Visit * ReasonCommentsBack PainHematuriaPt states long cath placed a week ago for difficulty urinating & notes back pain x3 days, hematuria x2 days, notes leaking around long cath, chills, and nausea. Pt denies V/D. Encounter Details DateTypeDepartmentCare Team (Latest Contact Info)Xnxzexcpoyh83/18/2025 10:18 AM EDT - 12/02/2024 12:37 PM EDTEmerG[facility] Emergency Department [address] [place], [place] [id number] Gross hematuria (Primary Dx); Painful bladder spasm; [...] Safety Domain Source: IP Abuse ScreeningAnswerDate RecordedPhysical sfaoePrfbma52/18/2025 Verbal uswokUtaxoc13/18/2025Emotional hlvjyTztnyp52/18/2025Financial abuseDenies 12/02/2024Sexual sotbxSzchrx60/18/2025CommentsNoSex and Gender InformationValueDate RecordedSex Assigned at BirthNot on fileLegal SexFemale 04/12/2013 2:41 PM ESTGender IdentityNot on fileSexual OrientationNot on file documented as of this encounter Last Filed Vital Signs Vital SignReadingTime TakenCommentsBlood Oomgxjww785/8512/02/2024 12:36 PM EDT Dzapz103112/02/2024 12:36 PM GPLXorvdvfdwok14.8 ??C (98.2 ??F)12/02/2024 10:14 AM EDTRespiratory Tize0326 10:14 AM EDTOxygen Fvawnderhs759%12/02/2024 12:36 PM EDTInhaled Oxygen Concentration--Tdubju59.6 kg (180 lb)12/02/2024 10:14 AM ONPOkakxd271.6 cm (5' 6 )12/02/2024 10:14 AM EDTBody [...] be sent through Care Everywhere. * Hematuria (Tajik) documented in this encounter Medications at Time [...] MG tablet Take 1 tablet by mouth ltqnogb89 ranolazine (RANEXA) 500 MG extended release tablet [...] tablet by mouth 2 times daily as einhxt91documented as of this encounter Plan of Treatment Not on file documented as of this encounter Procedures Procedure NamePriorityDate/TimeAssociated DiagnosisCommentsURINALYSIS WITH REFLEX TO VCKAISWYBPS24/18/2025 11:54 AM EDT MICROSCOPIC LDUJLJELFVDtuziqa87/18/2025 11:[address] ABDOMEN PELVIS WO OJIHIJAFQWEP01/18/2025 11:30 AM EDT CBC WITH AUTO SLBFARDSIHNCBKME40/18/2025 11:12 AM EDT QXZAAXHDRHZUK69/18/2025 11:12 AM EDT LACTIC CWJPBIUP89/18/2025 11:12 AM EDT COMPREHENSIVE METABOLIC KPFUBQFAY46/18/2025 11:12 AM EDT documented in this encounter Results * Microscopic Urinalysis (12/02/2024 11:54 AM EDT)ComponentValueRef RangeTest MethodAnalysis TimePerformed AtPathologist SignatureWBC, UA2 TO 50 - 5 /HPF 12/02/2024 11:54 AM [facility] LABRBC, UA20 TO 500 - 2 /HPF12/02/2024 11:54 AM [facility] LABEpithelial Cells, UA0 TO 20 - 25 /HPF12/02/2024 11:54 AM [facility] Specimen (Source)Anatomical Location / LateralityCollection Method / Volume Collection TimeReceived Time12/02/2024 11:54 AM EDT1 11:57 AM EDT Narrative Authorizing ProviderResult TypeResult StatusDavid Chris DUNCAN ORDERABLES Final ResultPerforming OrganizationAddressCity/State/ZIP CodePhone Number [facility] [address] [phone] * (ABNORMAL) Urinalysis with Reflex to Culture (12/02/2024 11:54 AM EDT) ComponentValueRef RangeTest MethodAnalysis TimePerformed AtPathologist SignatureColor, UARed(A)Mcqmqp8912/02/2024 11:54 AM [facility] LABTurbidity FCYnuurFhtre51/18/2025 11:54 AM [facility] LABGlucose, UrNEGATIVENEGATIVE mg/dL12/02/2024 11:54 AM [facility] LABBilirubin, LnxxtXYVWQSNBLZHYLAKI37/18/2025 11:54 AM [facility] LABKetones, UrineNEGATIVENEGATIVE mg/dL 12/02/2024 11:54 AM [facility] LABSpecific [place], UA 1.0101.010 - 1.4233712/02/2024 11:54 AM [facility] LABUrine Hgb3+(A)BOJCAACK49/18/2025 11:54 AM [facility] LABpH, Urine7.05.0 - 9.010 11:54 AM [facility] Protein, UATRACE(A)NEGATIVE mg/dL12/02/2024 11:54 AM [facility] LABUrobilinogen, UrineNormal0.0 - 1.0 EU/dL12/02/2024 11:54 AM EDT [facility] LABNitrite, UszreVSYNJWBVRVTQYIGZ39/18/2025 11:54 AM [facility] LABLeukocyte Esterase, UrineNEGATIVE ALZWRQED51/18/2025 11:54 AM [facility] LABSpecimen (Source)Anatomical Location / LateralityCollection Method / VolumeCollection TimeReceived TimeURINE SPECIMEN / Vkonutd5512/02/2024 11:54 AM EDT1 11:57 AM EDT Narrative Authorizing ProviderResult TypeResult StatusDavid Chris DUNCAN ORDERABLES Final ResultPerforming OrganizationAddressCity/State/ZIP CodePhone Number [facility] [address] [phone] * CT ABDOMEN PELVIS WO CONTRAST Additional [...] AtPathologist SignatureMagnesium1.81.6 - 2.6 mg/dL12/02/2024 11:12 AM [facility] LABSpecimen (Source)Anatomical Location / LateralityCollection Method / VolumeCollection TimeReceived Time BloodBLOOD SPECIMEN / Dwfqpbk1212/02/2024 11:12 AM EDT1 11:14 AM EDT Narrative Authorizing ProviderResult TypeResult StatusDavid Chris PA-CCHEMISTRY ORDERABLESFinal ResultPerforming OrganizationAddressCity/State/ZIP CodePhone Number [facility] [address] [place] [address] * Lactic Acid (12/02/2024 11:12 AM EDT)ComponentValueRef RangeTest Method Analysis TimePerformed AtPathologist SignatureLactic Acid0.80.5 - 2.2 mmol/L 12/02/2024 11:12 AM [facility] LABSpecimen (Source) Anatomical Location / LateralityCollection Method / VolumeCollection Time Received TimeBloodBLOOD SPECIMEN / Jewnsiq0212/02/2024 11:12 AM EDT1 11:14 AM EDT Narrative Authorizing ProviderResult TypeResult StatusDavid [facility] Centerwilmar PA-CCHEMISTRY ORDERABLESFinal ResultPerforming OrganizationAddressCity/State/[facility] CodePhone Number [facility] [address] [place] [address] * (ABNORMAL) CBC with Auto Differential (12/02/2024 11:12 AM EDT)ComponentValue Ref RangeTest MethodAnalysis TimePerformed AtPathologist SignatureWBC4.43.5 - 11.3 k/uL12/02/2024 11:12 AM [facility] LABRBC3.47(L)3.95 - 5.11 m/uL12/02/2024 11:12 AM [facility] LABHemoglobin 10.1(L)11.9 - 15.1 g/dL12/02/2024 11:12 AM [facility] Umgpmkxcgr39.5(L)36.3 - 47.1 %12/02/2024 11:12 AM [facility] FSNQLN46.982.6 - 102.9 fL12/02/2024 11:12 AM [facility] HGYOAM87.125.2 - 33.5 pg12/02/2024 11:12 AM [facility] XCUQNWU55.128.4 - 34.8 g/dL12/02/2024 11:12 AM [facility] HYYUYA43.811.8 - 14.4 %12/02/2024 11:12 AM [facility] PNJXtroavszu511215 - 453 k/uL12/02/2024 11:12 AM [facility] QFMFRX32.98.1 - 13.5 fL12/02/2024 11:12 AM [facility] LABNRBC Automated0.00.0 per 100 WBC12/02/2024 11:12 AM [facility] LABNeutrophils %71(H)36 - 65 %12/02/2024 11:12 AM [facility] LABLymphocytes %22(L)24 - 43 %12/02/2024 11:12 AM [facility] LABMonocytes %53 - 12 %12/02/2024 11:12 AM [facility] LABEosinophils %11 - 4 %12/02/2024 11:12 AM [facility] LABBasophils %10 - 2 %12/02/2024 11:12 AM [facility] LABImmature Granulocytes %00 %12/02/2024 11:12 AM [facility] LABNeutrophils Absolute3.131.50 - 8.10 k/uL 12/02/2024 11:12 AM [facility] LABLymphocytes Absolute 0.95(L)1.10 - 3.70 k/uL12/02/2024 11:12 AM [facility] Monocytes Absolute0.230.10 - 1.20 k/uL12/02/2024 11:12 AM [facility] LABEosinophils Absolute0.050.00 - 0.44 k/uL12/02/2024 11:12 AM [facility] LABBasophils Absolute0.030.00 - 0.20 k/uL 12/02/2024 11:12 AM [facility] LABImmature Granulocytes Absolute<0.030.00 - 0.30 k/uL12/02/2024 11:12 AM [facility] LABSpecimen (Source)Anatomical Location / LateralityCollection Method / VolumeCollection TimeReceived TimeBloodBLOOD SPECIMEN / Grkccwg2012/02/2024 11:12 AM EDT1 11:14 AM EDT Narrative Authorizing ProviderResult TypeResult StatusDavid Chris INMAN-CHEMATOLOGY ORDERABLESFinal ResultPerforming OrganizationAddressCity/State/ZIP CodePhone Number [facility] [address] [phone] * (ABNORMAL) CMP (12/02/2024 11:12 AM EDT)ComponentValueRef RangeTest Method Analysis TimePerformed AtPathologist GkilszbwhWmhedd382192 - 145 mmol/L 12/02/2024 11:12 AM [facility] LABPotassium3.93.7 - 5.3 mmol/L1 11:12 AM [facility] PWWYxddzdki19122 - 107 mmol/L1 11:12 AM [facility] UFYZP96352 - 31 mmol/L1 11:12 AM [facility] LABAnion Gap99 - 16 mmol/L1 11:12 AM [facility] BQCWfgdyis8906 - 99 mg/dL12/02/2024 11:12 AM [facility] FJDGMP64 - 20 mg/dL 12/02/2024 11:12 AM [facility] LABCreatinine0.70.50 - 0.90 mg/dL12/02/2024 11:12 AM [facility] LABEst, Glom Filt Rate>90>60 mL/min/1.21k08912/02/2024 11:12 AM [facility] LABComment: ? These results are not intended [...] therapy that affects renal tubular secretion. BUN/Creatinine Tnbxa529 - 11:12 AM [facility] LABCalcium8.4(L)8.6 - 10.4 mg/dL12/02/2024 11:12 AM [facility] LABTotal Protein6.0(L)6.6 - 8.7 g/dL12/02/2024 11:12 AM [facility] LABAlbumin3.73.5 - 5.2 g/dL12/02/2024 11:12 AM [facility] LABAlbumin/Globulin Ratio1.61.0 - 2.510 11:12 AM [facility] LABTotal Bilirubin0.30.00 - 1.20 mg/dL12/02/2024 11:12 AM [facility] LABAlkaline Wopvzxkwphf8317 - 104 U/L 12/02/2024 11:12 AM [facility] UPJOTW81(H)10 - 35 U/L 12/02/2024 11:12 AM [facility] BZLXVM75(H)10 - 35 U/L 12/02/2024 11:12 AM [facility] LABSpecimen (Source) Anatomical Location / LateralityCollection Method / VolumeCollection Time Received TimeBloodBLOOD SPECIMEN / Akpoujx0712/02/2024 11:12 AM EDT1 11:14 AM EDT Narrative Authorizing ProviderResult TypeResult StatusDavid Chris GONZALEZKETTERING HEALTH TROYEMISTRY ORDERABLESFinal ResultPerforming OrganizationAddressCity/State/ZIP CodePhone Number [facility] [address] [place] [address], [facility] [phone] documented in this encounter Visit Diagnoses Diagnosis [...] 1 dose New Bag12/02/2024 11:14 AM EDT1,000 cIk220.9 mL/hrdocumented in this encounter Active and Recently [...] MemberRelationshipSpecialtyStart DateEnd Thomas Alas MD [address] [id number] PCP - GeneralFamily Medicine11/08/24documented as of this encounter
--- OUTSIDE RECORDS SUMMARY | 2024-12-04 14:32 | XMS_ITS | Encounter Summary ---
Author Organization Benjy Lewis [facility] Address [address], [address] [place] [address] Care Team Providers Care Recreational Programs Director Name Role Phone Thomas Alas MD Primary Care Provider [phone] Reason for Visit * ReasonCommentsHematuriaPt had long catheter placed 2 weeks ago for gross hematuria and urinary retention. Followed up with her urologist in [place] and scheduled for removal this Wednesday. Started having severe pain and increased bleeding with clots over the weekend. Called back to urology and sent to ER. Encounter Details DateTypeDepartmentCare Team (Latest Contact Info)Tczfldpglzz62/20/2025 2:32 PM EDT - 12/04/2024 6:24 PM [facility] [place] [facility] [address] [place], [place] [id number] Hematuria, unspecified type (Primary Dx) Discharge Disposition: [...] Safety Domain Source: IP Abuse ScreeningAnswerDate RecordedPhysical ztzbvPirpbz90/18/2025 Verbal osfwfUtwohc95/18/2025Emotional nxwtzXjuxku35/18/2025Financial abuseDenies 12/02/2024Sexual bdvvrXsbmcd80/18/2025CommentsNoSex and Gender InformationValueDate RecordedSex Assigned at BirthNot on fileLegal SexFemale 04/12/2013 2:41 PM ESTGender IdentityNot on fileSexual OrientationNot on file documented as of this encounter Last Filed Vital Signs Vital SignReadingTime TakenCommentsBlood Ealshsta074/4612/04/2024 6:01 PM EDT Lttoe818412/04/2024 2:30 PM SJOCaodgkrmtbf46.7 ??C (98.1 ??F)12/04/2024 2:30 PM EDTRespiratory Nxkt4049 2:30 PM EDTOxygen Yqogwaxmnb78%12/04/2024 6:01 PM EDTInhaled Oxygen Concentration--Weight--Height--Body Mass Index--documented [...] be sent through Care Everywhere. * Hematuria (Romansh) documented in this encounter Medications at [...] MG tablet Take 1 tablet by mouth shbsqyf11/ ranolazine (RANEXA) 500 MG extended release tablet [...] DiagnosisCommentsCT UROGRAMSTAT 12/04/2024 4:29 PM EDT MICROSCOPIC IHKQBPPPXQCzgabmm74/20/2025 2:55 PM EDT YZDBOPQPRVCPAP30/20/2025 2:55 PM EDT CULTURE, JMOQGWUHH52/20/2025 2:55 PM EDTCBC WITH AUTO KIGCJAIMAGIEFVPN95/20/2025 2:53 PM EDT PROTIME-EUAACHO6612/04/2024 2:53 PM EDT BASIC METABOLIC BLKPTNKDI79/20/2025 2:53 PM EDT documented in this encounter [...] change noted. Authorizing ProviderResult TypeResult StatusMarciemily Marion GRAIN SCOOPER - CNPIMG CT ORDERABLESFinal Result * (ABNORMAL) Microscopic Urinalysis (12/04/2024 2:55 PM EDT)ComponentValueRef RangeTest MethodAnalysis TimePerformed AtPathologist SignatureWBC, UA2 TO 50 - 5 /HPF12/04/2024 2:55 PM [facility] LABRBC, UAGREATER THAN 1000 - 2 /HPF12/04/2024 2:55 PM [facility] Epithelial Cells, UA0 TO 20 - 25 /HPF12/04/2024 2:55 PM [facility] LABBacteria, UA2+(A)None12/04/2024 2:55 PM [facility] LABSpecimen (Source)Anatomical Location / LateralityCollection Method / VolumeCollection TimeReceived Time12/04/2024 2:55 PM EDT1 3:03 PM EDT Narrative Authorizing ProviderResult TypeResult StatusMarciemily Marion GRAIN SCOOPER - CNPURINE ORDERABLESFinal ResultPerforming OrganizationAddressCity/State/ZIP CodePhone Number [facility] [address] [phone] * (ABNORMAL) Urinalysis (12/04/2024 2:55 PM EDT)ComponentValueRef RangeTest MethodAnalysis TimePerformed AtPathologist SignatureColor, UARed(A)Yellow 12/04/2024 2:55 PM [facility] LABTurbidity UAClearClear 12/04/2024 2:55 PM [facility] LABGlucose, UrNEGATIVE NEGATIVE mg/dL12/04/2024 2:55 PM [facility] LABBilirubin, ZjlmhEGDSKBHTGXNPXSES68/20/2025 2:55 PM [facility] Ketones, Urine1+(A)NEGATIVE mg/dL12/04/2024 2:55 PM [facility] LABSpecific [place], UA1.0201.010 - 1.9083512/04/2024 2:55 PM [facility] LABUrine Hgb3+(A)YXZQKXVN85/20/2025 2:55 PM [facility] LABpH, Urine7.05.0 - 9.010 2:55 PM [facility] LABProtein, UA2+(A)NEGATIVE mg/dL12/04/2024 2:55 PM EDT [facility] LABUrobilinogen, UrineELEVATED0.0 - 1.0 EU/dL 12/04/2024 2:55 PM [facility] LABNitrite, UrinePOSITIVE (A)YNETVYKS27/20/2025 2:55 PM [facility] LABLeukocyte Esterase, UrineSMALL(A)ABAIMIIX86/20/2025 2:55 PM [facility] LABSpecimen (Source)Anatomical Location / LateralityCollection Method / VolumeCollection TimeReceived TimeUrineURINE SPECIMEN / Luhiqtd9012/04/2024 2:55 PM EDT1 3:03 PM EDT Narrative Authorizing ProviderResult TypeResult StatusNeeta Marion APRN - CNPURINE ORDERABLESFinal ResultPerforming OrganizationAddressCity/State/ZIP CodePhone Number [facility] [address] [place] [address] * Protime-INR (12/04/2024 2:53 PM EDT)ComponentValueRef RangeTest MethodAnalysis TimePerformed AtPathologist OxnxdwxreBgvduuj76.112.0 - 15.0 sec12/04/2024 2:53 PM [facility] LABINR1. 2:53 PM [facility] LABComment: ? Therapeutic Range: Moderate Anticoagulant Intensity: INR = 2.0-3.0 High Anticoagulant Intensity: INR = 2.5-3.5 Specimen (Source)Anatomical Location / LateralityCollection Method / Volume Collection TimeReceived TimeBloodBLOOD SPECIMEN / Dauunhs0012/04/2024 2:53 PM EDT 12/04/2024 3:02 PM EDT Narrative Authorizing ProviderResult TypeResult StatusNeeta Marion GRAIN SCOOPER - DESKTOP ANALYST HEMATOLOGY ORDERABLESFinal ResultPerforming OrganizationAddressCity/State/ZIP CodePhone Number [facility] [address] [place] [address] * (ABNORMAL) BMP (12/04/2024 2:53 PM EDT)ComponentValueRef RangeTest Method Analysis TimePerformed AtPathologist ChkuneicqIzmbao115619 - 145 mmol/L 12/04/2024 2:53 PM [facility] LABPotassium3.93.7 - 5.3 mmol/L1 2:53 PM [facility] SFIZtqyghfz637(H)98 - 107 mmol/L1 2:53 PM [facility] TQBYB32832 - 31 mmol/L1 2:53 PM [facility] LABAnion Gap8(L)9 - 16 mmol/L1 2:53 PM [facility] IRCOwqdgww5559 - 99 mg/dL12/04/2024 2:53 PM [facility] DRPCPS99 - 20 mg/dL 12/04/2024 2:53 PM [facility] LABCreatinine0.60.50 - 0.90 mg/dL12/04/2024 2:53 PM [facility] LABEst, Glom Filt Rate >90>60 mL/min/1.49l93612/04/2024 2:53 PM [facility] Comment: ? These results are not [...] therapy that affects renal tubular secretion. BUN/Creatinine Mydft111 - 2:53 PM [facility] LABCalcium8.2(L)8.6 - 10.4 mg/dL12/04/2024 2:53 PM [facility] LABSpecimen (Source)Anatomical Location / LateralityCollection Method / VolumeCollection TimeReceived TimeBloodBLOOD SPECIMEN / Aaftoxi2212/04/2024 2:53 PM EDT1 3:02 PM EDT Narrative Authorizing ProviderResult TypeResult StatusMarpapa Emily Doni GRAIN SCOOPER - CNPCHEMISTRY ORDERABLESFinal ResultPerforming OrganizationAddressCity/State/ZIP CodePhone Number [facility] [address] [place] [id number], [facility] [phone] * (ABNORMAL) CBC with Auto Differential (12/04/2024 2:53 PM EDT)ComponentValue Ref RangeTest MethodAnalysis TimePerformed AtPathologist SignatureWBC4.13.5 - 11.3 k/uL12/04/2024 2:53 PM [facility] LABRBC3.21(L)3.95 - 5.11 m/uL12/04/2024 2:53 PM [facility] LABHemoglobin9.4 (L)11.9 - 15.1 g/dL12/04/2024 2:53 PM [facility] LAB Rfzilbjpmf38.2(L)36.3 - 47.1 %12/04/2024 2:53 PM [facility] KWPPMQ93.982.6 - 102.9 fL12/04/2024 2:53 PM [facility] BMJKQR77.325.2 - 33.5 pg12/04/2024 2:53 PM [facility] KEAIWLW73.328.4 - 34.8 g/dL12/04/2024 2:53 PM [facility] LQMAJH71.711.8 - 14.4 %12/04/2024 2:53 PM [facility] MEYUqcbmigow286900 - 453 k/uL12/04/2024 2:53 PM [facility] DSSYLY94.68.1 - 13.5 fL12/04/2024 2:53 PM [facility] LABNRBC Automated0.00.0 per 100 WBC12/04/2024 2:53 PM [facility] LABNeutrophils %5136 - 65 %12/04/2024 2:53 PM [facility] LABLymphocytes %3724 - 43 %12/04/2024 2:53 PM [facility] LABMonocytes %93 - 12 %12/04/2024 2:53 PM [facility] LABEosinophils %21 - 4 %12/04/2024 2:53 PM [facility] LABBasophils %10 - 2 %12/04/2024 2:53 PM [facility] LABImmature Granulocytes %00 %12/04/2024 2:53 PM EDT [facility] LABNeutrophils Absolute2.091.50 - 8.10 k/uL 12/04/2024 2:53 PM [facility] LABLymphocytes Absolute1.49 1.10 - 3.70 k/uL12/04/2024 2:53 PM [facility] LAB Monocytes Absolute0.360.10 - 1.20 k/uL12/04/2024 2:53 PM [facility] LABEosinophils Absolute0.080.00 - 0.44 k/uL12/04/2024 2:53 PM [facility] LABBasophils Absolute0.040.00 - 0.20 k/uL 12/04/2024 2:53 PM [facility] LABImmature Granulocytes Absolute<0.030.00 - 0.30 k/uL12/04/2024 2:53 PM [facility] LABSpecimen (Source)Anatomical Location / LateralityCollection Method / VolumeCollection TimeReceived TimeBloodBLOOD SPECIMEN / Bopdlnh3912/04/2024 2:53 PM EDT1 3:02 PM EDT Narrative Authorizing ProviderResult TypeResult StatusNeeta Marion APRN - BETH HEMATOLOGY ORDERABLESFinal ResultPerforming OrganizationAddressCity/State/ZIP CodePhone Number [facility] [address] [id number], [facility] [phone] documented in this encounter Visit Diagnoses Diagnosis [...] Wed12/04/24 at 1630, Other Given12/04/2024 4:30 PM SOF703 mLs ondansetron (ZOFRAN) injection 4 mg 4 mg, IntraVENous, ONCE, 1 dose, On Wed12/04/24 at 1515 Given12/04/2024 3:46 PM EDT4 mg phenazopyridine (PYRIDIUM) tablet 200 mg 200 mg, Oral, Once, 1 dose, On Wed12/04/24 at 1815, Take with food. May cause discoloration of urine. Given12/04/2024 6:18 PM DHV089 mg prochlorperazine (COMPAZINE) injection 10 mg 10 [...] Team MemberRelationshipSpecialtyStart DateEnd Thomas Alas MD [address] [place] [address] PCP - GeneralFamily Medicine11/08/24documented as of this encounter
--- OUTSIDE RECORDS SUMMARY | 2024-12-06 11:20 | XMS_ITS | Encounter Summary ---
Author Organization [facility] Address [address] [place] [address] Care Team Providers Care Compliance Quality Performance Analyst Name Role Phone Thomas Alas MD Primary Care Provider [phone] Reason for Visit * ReasonCommentsFollow-upPatient is here today for a follow up [facility] admission and for surgery clearance. Patient is having an ERCP with Dr. Bellamy at [facility]. Needs to stop plavix for 5 days.Chest PainChest pain with and without activity HypertensionHyperlipidemiaNSTEMISpontaneous dissection of the coronary artery Congestive Heart FailureIdiopathic hypotensionFatiguePatient states she has extreme fatigue.Shortness of BreathIncreased sob/doeDizziness Dizziness/lightheaded with position changes Encounter Details DateTypeDepartmentCare Team (Latest Contact Info)Suxdpwfetns99/22/2025 11:20 AM EDTOffice Visit [facility] Heart at [facility] [address] [place] [phone] Wali Collins MD [address] [place] [phone] Spontaneous dissection of coronary artery (Primary Dx); Other fatigue; Precordial pain; Anemia due to acute blood loss Social History Tobacco UseTypesPacks/DayYears UsedDateSmoking Tobacco: NeverSmokeless Tobacco: NeverAlcohol UseStandard Drinks/WeekCommentsNot Currently0 (1 standard drink = 0.6 oz pure alcohol)[facility] UtilitiesAnswerDate RecordedIn the past 12 months [...] or living in a skilled nursing (including now)?No11/15/2024Hunger Vital SignAnswerDate RecordedWithin the past 12 months, you worried that your food would run out before you got the money to buymore.Never true11/15/2024Ran Out of Food in the Last YearNot on file 11/15/2024CommentsNoSex and Gender InformationValueDate RecordedSex Assigned at SpavtSamjua30/03/2025 3:45 PM EDTLegal DqzEqhfiw03/30/2022 12:07 AM EDTGender NsghbxkaOptjya81/03/2025 3:45 PM EDTSexual OrientationHeterosexual or Haocjqti27/03/2025 3:45 PM EDTdocumented as of this encounter Last Filed Vital Signs Vital SignReadingTime TakenCommentsBlood Gbiokqbp840/6012/06/2024 11:10 AM EDT Txmlu175812/06/2024 11:10 AM EDTTemperature--Respiratory Rate--Oxygen Saturation 99%12/06/2024 11:10 AM EDTInhaled Oxygen Concentration--Weight--Dqnumr955.6 cm (5' 6 )12/06/2024 11:10 AM EDTBody Mass Index--documented in this encounter Functional Status * BPAnswerDate of BdulbypawsNcjwqj723/60/ 11:10 AM EDNadia Le MA * PulseAnswerDate of RpkjrijiknPuokik5411/22/2025 11:10 AM EDNadia Le MA * Patient PositionAnswerDate of UldaxdzobzYqvoivMwucbde89/22/2025 11:10 AM EDT Nadia Gagnon MA * BPAnswerDate of IgycmlssweOggfxi676/6012/06/2024 11:10 AM EDNadia Le MA * PulseAnswerDate of UkijbgnkdaSoxmfw9472/22/2025 11:10 AM Nadia Ortega MA * OoJ8YedjehDsww of KggqfhhpmnHumgrh2902/22/2025 11:10 AM Nadia Ortega MA * BP LocationAnswerDate of AssessmentAuthorLeft arm12/06/2024 11:10 AM EDT Nadia Gagnon MA * Patient PositionAnswerDate of PefdfxfoudPabobwGfochsy22/22/2025 11:10 AM EDT Nadia Gagnon MA documented as of this encounter Progress Notes * Wali Collins MD - 12/06/2024 11:20 AM EDT Subjective Patient ID: Abbey Garcia is a 34 y.o. female who presents for Follow-up (Patient is here today for a follow up [facility] admission and for surgery clearance. Patient is having an ERCP with Dr. Bellamy at [facility]. Needs to stop plavix for 5 [...] Plan of Treatment DateTypeDepartmentCare Team (Latest Contact Info)Pjpyggbswct93/30/2025 9:00 AM EDTAppointment [facility] [address] [place] [address] Braxton Bellamy MD [address] [facility] [address] [facility] [place] [phone] 12/14/2024 10:30 AM EDTAppointment [facility] X-Ray Imaging [address] [place] [phone] 01/31/2025 11:00 AM ESTOffice Visit [facility] Heart at [facility] [address] [place] [phone] Wali Collins MD [address] [place] [phone] NameTypePriorityAssociated DiagnosesOrder ScheduleIron and TIBCLabRoutine Anemia due to acute blood loss Expected: 12/06/2024 (Approximate), Expires: 12/06/2025documented as of this encounter Visit Diagnoses Diagnosis Spontaneous dissection of coronary artery- Primary Other fatigue Precordial pain Anemia due to acute blood loss Acute posthemorrhagic anemia documented in this encounter Care Teams Team MemberRelationshipSpecialtyStart DateEnd Date Thomas Alas MD [address] [facility] [address] [address] PCP - GeneralFamily Medicine08/17/24documented as of this encounter
[2024-12-07] VITALS (22 sets, daily range): BP systolic 107–134; BP diastolic 63–95; PULSE 60–81; TEMP 37; O2SAT 95–100; BMI 29.1
--- OUTSIDE RECORDS SUMMARY | 2024-12-07 14:16 | XMS_ITS | Encounter Summary ---
Author Organization [facility] Address [address] [place] [address] Care Team Providers Care Bed And Breakfast Innkeeper Name Role Phone Thomas Alas MD Primary Care Provider [phone] Encounter Details DateTypeDepartmentCare Team (Latest Contact Info)Issfvnhgagf01/21/2025Orders Only [facility] Heart at [facility] [address] [place] [address] Provider, MD Siri [address] [place], [place] [phone] Social History Tobacco UseTypesPacks/DayYears UsedDateSmoking Tobacco: NeverSmokeless Tobacco: NeverAlcohol UseStandard Drinks/WeekCommentsNot Currently0 (1 standard drink = 0.6 oz pure alcohol)[facility] UtilitiesAnswerDate RecordedIn the past 12 months [...] homeless or living in a snf (including now)?No11/15/2024Hunger Vital SignAnswerDate RecordedWithin the past 12 months, you worried that your food would run out before you got the money to buymore.Never true11/15/2024Ran Out of Food in the Last YearNot on file 11/15/2024CommentsNoSex and Gender InformationValueDate RecordedSex Assigned at NuvjmXtfzdm96/03/2025 3:45 PM EDTLegal ZqyOnpeea53/30/2022 12:07 AM EDTGender GoovubsyPvvjvo09/03/2025 3:45 PM EDTSexual OrientationHeterosexual or Nhfjeoza03/03/2025 3:45 PM EDTdocumented as of this encounter Functional Status * BPAnswerDate of WduozpnvaxZqkjbn165/6012/06/2024 11:10 AM Nadia Ortega MA * PulseAnswerDate of YnykvcbcvpEqvnzm5110/22/2025 11:10 AM Nadia Ortega MA * Patient PositionAnswerDate of YzrsgnxewtQvksniInjfgox72/22/2025 11:10 AM EDT Nadia Gagnon MA * BPAnswerDate of UzyqdgrepdKixtbk098/6012/06/2024 11:10 AM Nadia Ortega MA * PulseAnswerDate of SgloykrzuuLlbtun6636/22/2025 11:10 AM Nadia Ortega MA * WsR3JesocoBakf of IpfyanwwjhUagmpw5835/22/2025 11:10 AM Nadia Ortega MA * BP LocationAnswerDate of AssessmentAuthorLeft arm12/06/2024 11:10 AM EDT Nadia Gagnon MA * Patient PositionAnswerDate of OwonufxurmIuvaqsStlyobq71/22/2025 11:10 AM EDT Nadia Gagnon MA documented as of this encounter Plan of Treatment DateTypeDepartmentCare Team (Latest Contact Info)Zyehjxkhzbh78/30/2025 9:00 AM EDTAppointment [facility] [address] [place] [address] Braxton Bellamy MD [address] [facility] Akhil [address] [facility] [place] [address] 12/14/2024 10:30 AM EDTAppointment [facility] X-Ray Imaging [address] [place] [address] 01/31/2025 11:00 AM ESTOffice Visit [facility] Heart [facility] [address] [place] [address] Wali Collins MD [address] [place] [address] documented as of this encounter Procedures Procedure NamePriorityDate/TimeAssociated DiagnosisCommentsCOMPLETE TRANSTHORACIC ECHO (TTE) W/WO IMAGING AGENT, STRAIN, 3D, BUBBLE STUDYRoutine 09/01/2024 3:12 PM EDTdocumented in this encounter Results * Complete Echo (TTE) w/wo Imaging Agent, Strain, 3D, Bubble Study (09/01/2024 3:12 PM EDT)Anatomical RegionLateralityModalityUltrasound Narrative Authorizing ProviderResult TypeResult StatusHistorical Provider [facility] ECHO PROCEDURESFinal Result documented in this encounter Visit Diagnoses Not on filedocumented in this encounter Care Teams Team MemberRelationshipSpecialtyStart DateEnd Date Thomas Alas MD [address] [facility] [address] [address] PCP - GeneralFamily Medicine08/17/24documented as of this encounter
--- OUTSIDE RECORDS SUMMARY | 2024-12-07 14:16 | XMS_ITS | Clinical Summary ---
Author Organization [facility] Address [address] [place] [address] Care Team Providers Care Lens Blocker Name Role Phone Mateusz Rosales MD Unavailable [phone] Source Comments The following information is NOT included in Care Everywhere downloads:Psychiatric notes, ECG results, Cardiac Rehab notes, Pulmonary Function notes, data from SmartForms (includes but not limited toPregnancy data,audiograms, eye exams, pre-surgical evaluation notes, well-child exam data).[facility] Medications No known medications Active Problems ProblemNoted DateDiagnosed DateMedian arcuate ligament rejukrqm80/02/2025 Assessment & Plan (10/09/2024 2:29 PM EDT): [...] prior laparotomy and open repair Encounters DateTypeDepartmentCare StzbQgaqwvhajoi55/25/2025 1:45 PM EDTTelemedicine [facility] Oncology Surgical [address] [phone] Mateusz Rosales MD Median arcuate ligament syndrome (HCC) (Primary Dx)10/09/20246030Emuypp51/21/2025 Telephone [facility] Surgery General [address] [place], [place] [phone] Mateusz Rosales MD from Last 3 Months Immunizations ImmunizationAdministration DatesNext DueInfluenza, injectable, quadrivalent, preservative free (SNL=471)11/12/2022,11/16/2021,12/25/2020Influenza, unspecified formulation (CVX=88)01/01/2021,11/28/2018 Social History Tobacco UseTypesPacks/DayYears UsedDateSmoking Tobacco: NeverSmokeless Tobacco: Never Tobacco Cessation:Counseling Given: Not Answered CommentsUnknownSex and Gender InformationValueDate RecordedSex Assigned at BirthNot on fileLegal HweKsplji95/23/2024 2:52 PM ESTGender IdentityNot on fileSexual OrientationNot on file Last Filed Vital Signs Vital SignReadingTime TakenCommentsBlood Napntlrv617/7306 2:27 PM EDT Qdgjm0066 2:27 PM WUOZgwdrptcvua34.4 ??C (97.5 ??F)07/17/2024 2:27 PM EDTRespiratory Nwni042907/17/2024 2:27 PM EDTOxygen Nhurolvucy83%07/17/2024 2:27 PM EDTInhaled Oxygen Concentration--Sldqlu01.5 kg (192 lb 12.8 oz)07/17/2024 2:27 PM EDTHeight--Body Mass Index-- Plan of Treatment Health MaintenanceDue DateLast DoneCommentsMammography (shared decision-making, age 35-39)1989HIV Test2004Hepatitis C Uclfcsao85/17/2008Tdap Booster 2007Hepatitis A (HAV) Vaccine (optional start [...] Corby Garcia TypeRelation to PatientDate of BirthPhoneBilling AddressPersonal/EnndnrDuqv25/17/[id number] [place] [phone] Care Teams Team MemberRelationshipSpecialtyStart DateEnd Date Mateusz Rosales MD [address] [place] [address] PhysicianGeneral Surgery05/20/24
--- OUTSIDE RECORDS SUMMARY | 2024-12-07 14:17 | XMS_ITS | Encounter Summary ---
Author Organization [facility] Address [address] [place] [address] Care Team Providers Care Furniture Salesperson Name Role Phone Thomas Alas MD Primary Care Provider Encounter Details DateTypeDepartmentCare Team (Latest Contact Info)Copdpciwvjt56/22/2025Orders Only [facility] Heart at [facility] [address] [place] [address] Maryuri Downing MA Anemia, unspecified type (Primary Dx) Social History Tobacco UseTypesPacks/DayYears UsedDateSmoking Tobacco: NeverSmokeless Tobacco: NeverAlcohol UseStandard Drinks/WeekCommentsNot Currently0 (1 standard drink = 0.6 oz pure alcohol)[facility] UtilitiesAnswerDate RecordedIn the past 12 [...] homeless or living in a fpc (including now)?No11/15/2024Hunger Vital SignAnswerDate RecordedWithin the past 12 months, you worried that your food would run out before you got the money to buymore.Never true11/15/2024Ran Out of Food in the Last YearNot on file 11/15/2024CommentsNoSex and Gender InformationValueDate RecordedSex Assigned at AmcmwBxldvi06/03/2025 3:45 PM EDTLegal UaeJvcatt62/30/2022 12:07 AM EDTGender WchpnagxCauakw47/03/2025 3:45 PM EDTSexual OrientationHeterosexual or Iliaqlfv85/03/2025 3:45 PM EDTdocumented as of this encounter Functional Status * BPAnswerDate of SdeojxhqyhZrrwlp549/6012/06/2024 11:10 AM Nadia Ortega MA * PulseAnswerDate of WamuoomxqqCpyegu0839/22/2025 11:10 AM Nadia Ortega MA * Patient PositionAnswerDate of VrmquhlsdxBnnjgdYogzbrd17/22/2025 11:10 AM EDT Naida Gagnon MA * BPAnswerDate of KcepmoxtkaImzgwh048/6012/06/2024 11:10 AM Nadia Ortega MA * PulseAnswerDate of QfmyqmswxvJhyvrd3624/22/2025 11:10 AM Nadia Ortega MA * RuC0EejmszTdnr of WnjgrfcnruSwznsj2071/22/2025 11:10 AM Nadia Ortega MA * BP LocationAnswerDate of AssessmentAuthorLehudson hospital12/06/2024 11:10 AM EDT Nadia Gagnon MA * Patient PositionAnswerDate of GciztlfabvUxivmeTwsmhfj68/22/2025 11:10 AM EDT Nadia Gagnon MA documented as of this encounter Plan of Treatment DateTypeDepartmentCare Team (Latest Contact Info)Czoqdskwrey94/30/2025 9:00 AM EDTAppointment [facility] [address] [place] [phone] Braxton Bellamy MD [address] [facility] Akhil [address] [facility] [place] [phone] 12/14/2024 10:30 AM EDTAppointment [facility] X-Ray Imaging [address] [place] [address] 01/31/2025 11:00 AM ESTOffice Visit [facility] Heart at [facility] [address] [place] [phone] Wali Collins MD [address] [place] [address] documented as of this encounter Visit Diagnoses Diagnosis Anemia, unspecified type- Primary documented in this encounter Care Teams Team MemberRelationshipSpecialtyStart DateEnd Date Thomas Alas MD [address] [facility] [address] [address] PCP - GeneralFamily Medicine08/17/24documented as of this encounter
--- OUTSIDE RECORDS SUMMARY | 2024-12-07 14:17 | XMS_ITS | Clinical Summary ---
Author Organization [facility] Address [id number] [address] [place] [address] Care Team Providers Care Foxer Name Role Phone No Pcp, No Pcp Primary Care Provider Unavailabl e Allergies Active AllergyReactionsCriticalityNoted YlavIwdfhxuwChewpei74/18/2018 Medications MedicationSigDispense QuantityRefillsLast FilledStart DateEnd DateStatus levothyroxine [...] breakfast.Active lancets (ONETOUCH DELICA LANCETS) 33 gauge [facility] Indications:Abnormal glucose tolerance affecting , antepartumOne touch [...] Problems ProblemNoted DateDiagnosed DateHypothyroidism affecting in second pmnntecnm28/08/2018 Family History Medical HistoryRelationNameCommentsThyroid diseaseFatherDiabetesMaternal GrandfatherHypertensionMaternal GrandfatherThyroid diseaseMaternal Grandfather HypertensionMaternal GrandmotherDiabetesMotherHypertensionMotherHypertension Paternal GrandfatherDiabetesPaternal GrandmotherHypertensionPaternal Grandmother Thyroid diseasePaternal GrandmotherRelationNameStatusCommentsFatherMaternal GrandfatherMaternal GrandmotherDeceasedMotherPaternal GrandfatherPaternal GrandmotherDeceased Social History Tobacco UseTypesPacks/DayYears UsedDateSmoking Tobacco: NeverSmokeless Tobacco: NeverAlcohol UseStandard Drinks/WeekCommentsNo0 (1 standard drink = 0.6 oz pure alcohol)ChildcareAnswerDate EjcggalbQrpnlvlibMzrqdht17/09/2019EmploymentAnswer Date NlnetnnqItywodhignTrdrvjj58/09/2019Purpose - LifeAnswerDate RecordedPurpose and direction in mfxpPrfsccb59/11/2021CommentsNoSex and Gender InformationValueDate RecordedSex Assigned at BirthNot on fileLegal SexFemale 09/20/2014 11:41 AM EDTGender IdentityNot on fileSexual OrientationNot on file Last Filed Vital Signs Vital SignReadingTime TakenCommentsBlood Sgmayzcl492/71003/15/2019 9:28 AM EST Eqlou554603/15/2019 9:28 AM ESTTemperature--Respiratory Rate--Oxygen Saturation-- Inhaled Oxygen Concentration--Szomjh721 kg (262 lb 5.6 oz)03/15/2019 9:28 AM EST Kgkyad180.2 cm (5' 7 )01/16/2019 8:31 AM ESTBody Mass Index41.0901/16/2019 8:31 AM EST Plan of Treatment Health MaintenanceDue DateLast DoneCommentsDepression Kkdvlwypn58/17/2002Tobacco Bvfpwdogk80/17/2002Adult BMI Tmpthzqge39/17/2008DTaP,Tdap and Td Vaccines (1 - Tdap)2008Pap Smear2010Influenza Uxvgpou9010/16/2024 Medical Devices Not on file Insurance Care Teams Team MemberRelationshipSpecialtyStart DateEnd Date No Pcp, No Pcp [place] [address] [facility]/22/17
--- OUTSIDE RECORDS SUMMARY | 2024-12-07 14:17 | XMS_ITS | Encounter Summary ---
Author Organization [facility] Address [address] [facility], [address] [place] [address] Care Team Providers Care Oven Drier Tender Name Role Phone Thomas Alas MD Primary Care Provider [phone] Encounter Details DateTypeDepartmentCare Team (Latest Contact Info)Gagjflnzyia36/20/2025Travel Social History Tobacco UseTypesPacks/DayYears UsedDateSmoking Tobacco: NeverSmokeless [...] Safety Domain Source: IP Abuse ScreeningAnswerDate RecordedPhysical uuihxSmjzqb71/18/2025 Verbal ylvtzGswbvk88/18/2025Emotional fzfjqSboqzd67/18/2025Financial abuseDenies 12/02/2024Sexual puznwCookhz80/18/2025CommentsNoSex and Gender InformationValueDate RecordedSex Assigned at BirthNot on fileLegal SexFemale 04/12/2013 2:41 PM ESTGender IdentityNot on fileSexual OrientationNot on file documented as of this encounter Functional Status documented as of this encounter Plan of Treatment Not on file documented as of this encounter Visit Diagnoses Not on filedocumented in this encounter Care Teams Team MemberRelationshipSpecialtyStart DateEnd Date Thomas Alas MD [address] [place] [address] PCP - GeneralFamily Medicine11/08/24documented as of this encounter
--- OUTSIDE RECORDS SUMMARY | 2024-12-07 14:17 | XMS_ITS ---
Author Organization [facility] Address [address] [place] [address] Care Team Providers Care Lace Weaver Name Role Phone Thomas Alas MD Primary Care Provider [phone] Active Problems ProblemNoted DateDiagnosed DateAbnormal thyroid blood test12/05/2024llergic dasldkbdtckuyz20/21/2897Akozpkwy37/21/2025 Overview (12/05/2024): Problem List clean-up per request of Phys. EHR Cmte Edema12/05/20245096Wylfpkytzwba55/21/9206Vulwgwkbsio73/21/2025Otitis media of left ear12/05/2024Postgastric surgery rqmmnoaz29/21/4285Akgtelpyd77/21/2025 Overview (12/05/2024): Problem List clean-up per request of Phys. EHR Cmte Common bile duct alkekobwof15/02/2025 Assessment & Plan (11/16/2024 2:13 AM EDT): CT chest/abd/pelvis noted CBD dilation and apperance of complex inflammatory changes. Patient has required multiple doses of opiates and antiemetics to control symptoms. Request to transfer to the [facility] where much of her advanced care has been provided with Specific concern that she may need ERCP/advanced endoscopy to further evaluation Pain management GI consult Disorder of endocrine lbatqg0211/09/2024Lumbar vwmvpyucchcpi23/25/2025Migraine 11/09/2024Severe protein-calorie malnutrition ([place]: less than 60% of standard weight)11/09/2024Pseudoaneurysm of right femoral wpwvin0011/09/2024 Assessment & Plan (11/12/2024 12:39 PM EDT): [...] pseudoaneurysm 11/02 -stable - follow Hgb Myocardial ygphvm3911/09/2024 Assessment & Plan (11/12/2024 12:39 PM EDT): [...] need to uptitrate verapamil if BP allows Tytfdydd08/18/2025Chest pain10/30/2024 Assessment & Plan (11/16/2024 2:13 AM [...] without complication, without long-term current use of psvgxvs5810/30/2024 Assessment & Plan (11/12/2024 12:39 PM EDT): [...] at home, will begin ISS, ACHS Primary jqzybxqqnzlf08/15/2025Other htrsammchjybrg29/15/2263Hfqcbp28/15/2025 Assessment & Plan (11/02/2024 1:29 PM EDT): [...] Stable, last BM yesterday Median arcuate ligament ecfhyqan01/15/2025 Assessment & Plan (11/12/2024 12:39 PM EDT): [...] and then MALS release S/P laparoscopic sleeve dwgtedzrwyl64/15/2025 Assessment & Plan (11/12/2024 12:39 PM EDT): [...] 9:00 PM EDT): - Stable Protein calorie gkjuthvptrax66/15/2025 Assessment & Plan (11/02/2024 1:29 PM EDT): [...] pain today patient brought urgently back to [facility] Assessment & Plan (11/01/2024 11:57 AM EDT): [...] -Pending TTE, cath Spontaneous dissection of coronary taxgut8110/30/2024 Assessment & Plan (11/12/2024 12:39 PM EDT): [...] pain today patient brought urgently back to [employer] Feeding dxdnbrugvuit98/09/2025roken central line09/21/2024Long term (current) use of opiate bljfogbzr22/07/2025Poor response to enteral gepqgmlfh27/28/2025 Sepsis due to Lvvjxqrxtb09/04/2025 Assessment & Plan (08/19/2024 1:03 PM EDT): - source is likely the cellulitis around the J-tube status post J-tube removal. - CT scan from [facility] showing no abscess. - Infectious disease recommendations appreciated, continue with ceftriaxone. - Repeat blood cultures on 08/16: NGTD - central line in place, does not look like infected, continue monitoring, central line care. Assessment & Plan (08/18/2024 12:20 PM EDT): - source is likely the cellulitis around the J-tube status post J-tube removal. - CT scan from [facility] showing no abscess. - Infectious disease recommendations appreciated, continue with ceftriaxone. - Repeat blood cultures on 08/16: NGTD - central line in place, does not look like infected, continue monitoring, central line care. Sepsis due to Wkawrblhibtd20/04/2025 Assessment & Plan (08/19/2024 1:03 PM EDT): - source is likely the cellulitis around the J-tube status post J-tube removal. - CT scan from [facility] showing no abscess. - Infectious disease recommendations appreciated, continue with ceftriaxone. - Repeat blood cultures on 08/16: NGTD - central line in place, does not look like infected, continue monitoring, central line care. Assessment & Plan (08/18/2024 12:20 PM EDT): - source is likely the cellulitis around the J-tube status post J-tube removal. - CT scan from [facility] showing no abscess. - Infectious disease recommendations appreciated, continue with ceftriaxone. - Repeat blood cultures on 08/16: NGTD - central line in place, does not look like infected, continue monitoring, central line care. Kvwbwezdvrwxf75/04/2025 Assessment & Plan (11/12/2024 12:39 PM EDT): [...] admission. - As needed antiemetics Chronic pain geijuoza66/04/2025 Assessment & Plan (11/12/2024 12:39 PM EDT): [...] and scheduled tramadol. Continue with as needed [place]. Assessment & Plan (08/18/2024 12:20 PM EDT): - continue with home meds including fentanyl patch and scheduled tramadol. Continue with as needed [place]. 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 Assessment & Plan (08/18/2024 12:20 PM EDT): - status postresection. History of adrenal ayjehojqbwkrx99/04/2025 Assessment & Plan (11/12/2024 12:39 PM EDT): [...] PM EDT): - continue with dexamethasone Acquired ggavcadcllumnz03/04/2025 Assessment & Plan (11/16/2024 2:13 AM EDT): [...] 12:20 PM EDT): - continue with levothyroxine. Rhpvaacaadmgwv43/03/2025 Assessment & Plan (11/12/2024 12:39 PM EDT): [...] well as other thyroid function testing Morbid nablmjn7708/17/2024 Assessment & Plan (08/19/2024 1:03 PM EDT): [...] the patient and she is in agreement. Krkckruuqd12/02/2025 Assessment & Plan (08/17/2024 1:27 AM EDT): -Unclear blood cultures - Commence patient on Vanco/cefepime - Monitor patient blood cultures - Also evaluate lab tests and correct abnormalities - Consult infectious disease - Obtain 2D echocardiogram History of laparoscopic jzoisyhglvyvkjh59/25/2025hronic, continuous use of oqnpdwk9904/11/2024Starvation rbtfuthjunai45/25/2025Intestinal wgwxnnvag79/07/2024 Screening for diabetes mellitus (DM)01/22/2024History of small bowel obstruction 01/21/2024Impaired intestinal wghzerbbvx11/18/5387Dlzzn05/25/2024urrent use of steroid nvwgwufqbm15/21/2024ommunity acquired pneumonia of left lower lobe of lung08/07/2023Idiopathic vkjzfphfukh04/21/2024spiration pneumonia of left lower lobe due to vomit08/04/2023Syncope and yigcjrvy02/19/2024Heart siykhds6006/29/2023 Acute renal failure superimposed on chronic kidney cvbvlxc4806/29/2023Hypokalemia 06/29/2023ecreased oral vsouuk1305/25/20238961Quekmxnhojkhhq06/19/2024nxiety and unlicuyvqx40/23/2023Feeding tuujqcs7912/07/2022Therapeutic drug monitoring 12/07/20226977Oknzfgneouc61/12/2023ilious vomiting with vgjztp3210/28/2022Intractable vomiting with pwyutm6410/25/20229804Mqlewh63/20/2023 Overview (11/09/2024): Takes Pro FE daily. Last Assessment & Plan: Assessment: iron infusions ~1 month ago Acute pain of right knee08/04/2022all stone08/04/2022Internal derangement of right dcsxtvti36/20/2023Mixed incontinence urge and qogafc3608/04/2022Other specified noninflammatory disorders of uxapzr4708/04/2022atellofemoral pain syndrome of right knee08/04/2022Right flank pain08/04/2022Vaginal pain08/04/2022 Rash and nonspecific skin aymxatce38/07/2023History of Isabel-en-Y gastric bypass 06/24/2022ipolar htbahvvg98/07/2023astric mukcle2501/29/2022Iron deficiency lwwhyw6911/01/2021Ventral hernia without obstruction or nglyztgv81/27/2022 Overview (12/05/2024): Last Assessment & Plan: Assessment: will have surgery Calculus of mcwwct7803/10/2021bnormal finding on imaging of liver04/07/2020 Moderate recurrent major hooiktsouo78/18/2020Situational emtvub6501/03/2020Panic disorder without fdgxexvpxyt58/06/2020Trauma and stressor-related disorder 11/21/2019Duodenogastric reflux of bile11/16/20195821Ecpciv02/10/2020Preoperative epkvtlykdbj80/10/2020Regurgitation of food09/25/2019Laryngopharyngeal reflux 10/07/2018Obstructive sleep apnea klxgawyp56/23/2019 Overview (12/05/2024): wears mask every night Jyixvxisjtteib70/20/2019Reactive qsjwcithqerh45/19/2019Chronic fatigue syndrome 09/19/2018Iron neokbdjyce47/05/2019Vitamin D huuszsholk47/05/2019Insomnia 09/15/2018Maltracking of right gceeasj2006/27/2018Chondromalacia of patella, right 05/30/2018Arthritis of right knee05/30/201839 [...]
--- OUTSIDE RECORDS SUMMARY | 2024-12-07 14:18 | XMS_ITS | Clinical Summary ---
Author Organization [facility] Address [address], [address] [place] [address] Care Team Providers Care Disintegrator Feeder Name Role Phone Thomas Alas MD Primary Care Provider [phone] Allergies Active AllergyReactionsCriticalityNoted DateCommentsAdhesive TapeOther (See Comments)Kyhwlw9502/07/2020 Sensitive to certain adhesive tapes. Redness and itchy. CodeineNausea And KgnvtvmtToz55/09/2025NsaidsOther (See Comments)01/29/2022 Gastric bypass S/p RYGB S/p RYGB Oxycodone-FiebriecwihgmSaqybbmcngcJyiu14/30/2023Wound Dressing AdhesiveOther (See Comments)Fhsnbf0502/07/2020 Sensitive to certain adhesive tapes. Redness and [...] MG tablet Take 1 tablet by mouth /5Active ranolazine (RANEXA) 500 MG extended release tablet [...] tablet by mouth 2 times daily as juexmq78/Expired cephALEXin (KEFLEX) 500 MG capsule Take 1 capsule by mouth 3 times daily for 7 days 21 capsule /Expired phenazopyridine (PYRIDIUM) 200 MG tablet Take 1 tablet by mouth 3 times daily as needed for Pain (bladder spasm/pain) 6 tablet /Expired Active Problems ProblemNoted DateDiagnosed DateIntractable nausea and ekyfveqk70/14/2023 Encounters DateTypeDepartmentCare MffvBggosupqlzf05/20/2025 2:32 PM EDT - 12/04[facility] [address] [place] [address] Hematuria, unspecified type (Primary Dx) Discharge Disposition: Home or Self Care12/04/20246772Evwooo34/18/2025 10:18 AM EDT - 12/02/2024 12:37 PM [facility] [address] [place], [place] [id number] Gross hematuria (Primary Dx); Painful bladder spasm; Right flank pain Discharge Disposition: Home or Self Care12/02/20240584Exomjt20/09/2025 5:32 PM EDT - 11/23/2024 8:26 PM [facility] [address] [place], [place] [id number] Shelley Sanz DO Acute urinary retention (Primary Dx); Acute UTI Discharge Disposition: Home or Self Care11/23/20248733Fhqigb83/01/2025 1:15 PM EDT - 11/15/2024 6:50 PM [facility] [address] [place] [address] Jory Hurd DO Chest pain, unspecified type (Primary Dx) Discharge Disposition: Another Acute Care Dkcipfqr82/01/6831Rwyjld42/24/2025 12:31 PM EDT - 11/09/2024 8:[facility] [address] [place], [place] [id number] Oc Graham MD Chest pain, unspecified type (Primary Dx) Discharge Disposition: Another Acute Care Ylgnhsbf16/24/2025Travelfrom Last 3 Months Social History Tobacco UseTypesPacks/DayYears [...] Safety Domain Source: IP Abuse ScreeningAnswerDate RecordedPhysical jhgpdLxtkpr34/18/2025 Verbal qzpsvHclijj73/18/2025Emotional dtxhcZujeog80/18/2025Financial abuseDenies 12/02/2024Sexual xbeqtHmrjvw85/18/2025CommentsNoSex and Gender InformationValueDate RecordedSex Assigned at BirthNot on fileLegal SexFemale 04/12/2013 2:41 PM ESTGender IdentityNot on fileSexual OrientationNot on file Last Filed Vital Signs Vital SignReadingTime TakenCommentsBlood Nujwemwe547/4610 6:01 PM EDT Kfexc8796 2:30 PM PNKVzxkrzunnyc59.7 ??C (98.1 ??F)12/04/2024 2:30 PM EDTRespiratory Prtx8551 2:30 PM EDTOxygen Emmzxzonjv65%12/04/2024 6:01 PM EDTInhaled Oxygen Concentration--Fclers91.6 kg (180 lb)12/02/2024 10:14 AM PLEWylzcf964.6 cm (5' 6 )12/02/2024 10:14 AM EDTBody Mass Index29.0512/02/2024 10:14 AM EDT Plan of Treatment Health MaintenanceDue DateLast MibcPrkjrgwjJdzyqf55/17/2000Depression Screen 2001Varicella vaccine (1 of 2 - 13+ 2-dose series)2002HIV screen 2004Hepatitis C rczvbn4704/03/2007Hepatitis B vaccine (1 of 3 - 19+ [...] DiagnosisCommentsCT UROGRAMSTAT 12/04/2024 4:29 PM EDT MICROSCOPIC OBNTXXTNEFLxijwih37/20/2025 2:55 PM EDT RZGXUVELJCNLHA06/20/2025 2:55 PM EDT CULTURE, KGVXQBMIM69/20/2025 2:55 PM EDTPROTIME-ZDRGBMZ0912/04/2024 2:53 PM EDT BASIC METABOLIC KKKFAWYFZ78/20/2025 2:53 PM EDT CBC WITH AUTO UGSIMDNYZNAXKCVP23/20/2025 2:53 PM EDT MICROSCOPIC RJIJMJVINTSkfrixt17/18/2025 11:54 AM EDT URINALYSIS WITH REFLEX TO ICESRYVWCPM32/18/2025 11:[address] ABDOMEN PELVIS WO INXREESUCJUF88/18/2025 11:30 AM EDT SJVVISGSZKJIU23/18/2025 11:12 AM EDT LACTIC LTLOIKEU11/18/2025 11:12 AM EDT CBC WITH AUTO EIOKGJQYFNTGTXAO51/18/2025 11:12 AM EDT COMPREHENSIVE METABOLIC MNOFDXVQM77/18/2025 11:12 AM EDT EKG 12-YVUPDkcxwtf34/09/2025 6:44 PM EDT BTZMLJWYBVXL34/09/2025 6:16 PM EDT BASIC METABOLIC SSDGEUECO66/09/2025 6:16 PM EDT CBC WITH AUTO DPCRRJNXBHUACYPZ25/09/2025 6:16 PM EDT MICROSCOPIC NSVZHVJFXLNislvbs66/09/2025 5:40 PM EDT URINALYSIS WITH REFLEX TO YKIUIUSKEAV24/09/2025 5:40 PM EDT LNCEWPPOQJXN00/01/2025 2:35 PM EDT ZELOGSZS43/01/2025 1:25 PM EDT PROTIME-JDTVGMV5211/15/2024 1:25 PM EDT BRAIN NATRIURETIC BWOKGGNILKJ33/01/2025 1:25 PM EDT MQKREEWEMQRK48/01/2025 1:25 PM EDT CBC WITH AUTO EWEASGTPPNRLDPOQ41/01/2025 1:25 PM EDT BASIC METABOLIC GMYYYVGBY01/01/2025 1:25 PM EDT XR CHEST PGNJPGGUOEZX03/01/2025 1:24 PM EDT EKG 12-SWVWULIG96/01/2025 1:19 PM EDT POCT UOWHSNSWdegkby00/24/2025 11:06 PM EDT POCT JPCLQGMOHBK48/24/2025 11:06 PM EDT POCT WHKUWWXEHZY81/24/2025 8:09 PM EDT POCT KRHPYTOXncgiby23/24/2025 7:55 PM EDT OPXUXYJSWAWI56/24/2025 6:38 PM EDT POCT OZMMTAFJvgjfrn51/24/2025 4:04 PM EDT EKG 12-NGNYJJSQ74/24/2025 4:01 PM EDT POCT CFRHQETCajmcav63/24/2025 2:03 PM EDT CTA CHEST ABDOMEN PELVIS W WO WXONAIUYBVTE96/24/2025 1:43 PM EDT PROTIME-VRVBBVL5611/08/2024 1:39 PM EDT XZEGVGPK76/24/2025 1:39 PM EDT POCT MHTJAOXCQTUZBB59/24/2025 1:16 PM EDT POCT HCWZJGNrjaxqq86/24/2025 1:14 PM EDT NBJMXAOJPOCY38/24/2025 12:50 PM EDT COMPREHENSIVE METABOLIC PANEL W/ REFLEX TO MG FOR LOW KSTAT11/08/2024 12:50 PM EDT CBC WITH AUTO CDVAXTCIIQNSTMBW81/24/2025 12:50 PM EDT POCT CUWPVLTCiwfalo53/24/2025 12:38 PM EDT EKG 12-OGNTYkkuvbl98/24/2025 12:37 PM EDT from Last 3 Months [...] change noted. Authorizing ProviderResult TypeResult StatusMarciemily Marion HOME STEREO EQUIPMENT INSTALLER - CNPIMG CT ORDERABLESFinal Result * (ABNORMAL) Microscopic Urinalysis (12/04/2024 2:55 PM EDT) Only the most recent of3 resultswithin the time period is included. ComponentValueRef RangeTest MethodAnalysis TimePerformed AtPathologist Signature WBC, UA2 TO 50 - 5 /HPF12/04/2024 2:55 PM [facility] RBC, UAGREATER THAN 1000 - 2 /HPF12/04/2024 2:55 PM [facility] LABEpithelial Cells, UA0 TO 20 - 25 /HPF12/04/2024 2:55 PM [facility] LABBacteria, UA2+(A)None12/04/2024 2:55 PM [facility] LABSpecimen (Source)Anatomical Location / Laterality Collection Method / VolumeCollection TimeReceived Time12/04/2024 2:55 PM EDT 12/04/2024 3:03 PM EDT Narrative Authorizing ProviderResult TypeResult StatusMarciemily Marion HOME STEREO EQUIPMENT INSTALLER - CNPURINE ORDERABLESFinal ResultPerforming OrganizationAddressCity/State/ZIP CodePhone Number [facility] [address] [id number] [phone] * (ABNORMAL) Urinalysis (12/04/2024 2:55 PM EDT)ComponentValueRef RangeTest MethodAnalysis TimePerformed AtPathologist SignatureColor, UARed(A)Yellow 12/04/2024 2:55 PM [facility] LABTurbidity UAClearClear 12/04/2024 2:55 PM [facility] LABGlucose, UrNEGATIVE NEGATIVE mg/dL12/04/2024 2:55 PM [facility] LABBilirubin, MuwhuGDMEEZSWVMQZXFOE09/20/2025 2:55 PM [facility] Ketones, Urine1+(A)NEGATIVE mg/dL12/04/2024 2:55 PM [facility] LABSpecific [place], UA1.0201.010 - 1.9835312/04/2024 2:55 PM [facility] LABUrine Hgb3+(A)HYIYPBAG22/20/2025 2:55 PM [facility] LABpH, Urine7.05.0 - 9.010 2:55 PM [facility] LABProtein, UA2+(A)NEGATIVE mg/dL12/04/2024 2:55 PM EDT [facility] LABUrobilinogen, UrineELEVATED0.0 - 1.0 EU/dL 12/04/2024 2:55 PM [facility] LABNitrite, UrinePOSITIVE (A)GYHQYQJH39/20/2025 2:55 PM [facility] LABLeukocyte Esterase, UrineSMALL(A)WRGVUOZM77/20/2025 2:55 PM [facility] LABSpecimen (Source)Anatomical Location / LateralityCollection Method / VolumeCollection TimeReceived TimeUrineURINE SPECIMEN / Fldxglg0812/04/2024 2:55 PM EDT1 3:03 PM EDT Narrative Authorizing ProviderResult TypeResult StatusMarciemily Marion HOME STEREO EQUIPMENT INSTALLER - CNPURINE ORDERABLESFinal ResultPerforming OrganizationAddressCity/State/ZIP CodePhone Number [facility] [address] [id number] [phone] * (ABNORMAL) CBC with Auto Differential (12/04/2024 2:53 PM EDT) Only the most recent of5 resultswithin the time period is included. ComponentValueRef RangeTest MethodAnalysis TimePerformed AtPathologist Signature WBC4.13.5 - 11.3 k/uL12/04/2024 2:53 PM [facility] LABRBC 3.21(L)3.95 - 5.11 m/uL12/04/2024 2:53 PM [facility] Hemoglobin9.4(L)11.9 - 15.1 g/dL12/04/2024 2:53 PM [facility] LVMLqcdikvctd23.2(L)36.3 - 47.1 %12/04/2024 2:53 PM [facility] ZTRXNK77.982.6 - 102.9 fL12/04/2024 2:53 PM [facility] MCNXKV70.325.2 - 33.5 pg12/04/2024 2:53 PM [facility] NUKGNXE35.328.4 - 34.8 g/dL12/04/2024 2:53 PM [facility] PHUHAY20.711.8 - 14.4 %12/04/2024 2:53 PM [facility] EOANhlmmqowj713619 - 453 k/uL12/04/2024 2:53 PM [facility] COVAZC87.68.1 - 13.5 fL12/04/2024 2:53 PM [facility] LABNRBC Automated0.00.0 per 100 WBC12/04/2024 2:53 PM [facility] LABNeutrophils %5136 - 65 %12/04/2024 2:53 PM [facility] LABLymphocytes %3724 - 43 %12/04/2024 2:53 PM [facility] LABMonocytes %93 - 12 %12/04/2024 2:53 PM [facility] LABEosinophils %21 - 4 %12/04/2024 2:53 PM [facility] LABBasophils %10 - 2 %12/04/2024 2:53 PM [facility] LABImmature Granulocytes %00 %12/04/2024 2:53 PM [facility] LABNeutrophils Absolute2.091.50 - 8.10 k/uL12/04/2024 2:53 PM [facility] LABLymphocytes Absolute1.491.10 - 3.70 k/uL12/04/2024 2:53 PM [facility] LABMonocytes Absolute0.360.10 - 1.20 k/uL12/04/2024 2:53 PM [facility] LABEosinophils Absolute 0.080.00 - 0.44 k/uL12/04/2024 2:53 PM [facility] Basophils Absolute0.040.00 - 0.20 k/uL12/04/2024 2:53 PM [facility] LABImmature Granulocytes Absolute<0.030.00 - 0.30 k/uL12/04/2024 2:53 PM [facility] LABSpecimen (Source)Anatomical Location / LateralityCollection Method / VolumeCollection TimeReceived TimeBloodBLOOD SPECIMEN / Uxlexpo8012/04/2024 2:53 PM EDT1 3:02 PM EDT Narrative Authorizing ProviderResult TypeResult StatusMarcia A Doni HOME STEREO EQUIPMENT INSTALLER - SURVEILLANCE DIRECTOR HEMATOLOGY ORDERABLESFinal ResultPerforming OrganizationAddressCity/State/ZIP CodePhone Number [facility] [address] [place] [address] * Protime-INR (12/04/2024 2:53 PM EDT) Only the most recent of3 resultswithin the time period is included. ComponentValueRef RangeTest MethodAnalysis TimePerformed AtPathologist Signature Ebpwrkq39.112.0 - 15.0 sec12/04/2024 2:53 PM [facility] INR1.110 2:53 PM [facility] LABComment: ? Therapeutic Range: Moderate Anticoagulant Intensity: INR = 2.0-3.0 High Anticoagulant Intensity: INR = 2.5-3.5 Specimen (Source)Anatomical Location / LateralityCollection Method / Volume Collection TimeReceived TimeBloodBLOOD SPECIMEN / Wtuhbjv3712/04/2024 2:53 PM EDT 12/04/2024 3:02 PM EDT Narrative Authorizing ProviderResult TypeResult StatusMarpapa Emily Doni HOME STEREO EQUIPMENT INSTALLER - SURVEILLANCE DIRECTOR HEMATOLOGY ORDERABLESFinal ResultPerforming OrganizationAddressCity/State/ZIP CodePhone Number [facility] [address] [place] [address] * (ABNORMAL) BMP (12/04/2024 2:53 PM EDT) Only the most recent of3 resultswithin the time period is included. ComponentValueRef RangeTest MethodAnalysis TimePerformed AtPathologist Signature Tsqomu409593 - 145 mmol/L1 2:53 PM [facility] Potassium3.93.7 - 5.3 mmol/L1 2:53 PM [facility] XXLHllserng648(H)98 - 107 mmol/L10 2:53 PM [facility] QJXES54262 - 31 mmol/L1 2:53 PM [facility] LABAnion Gap8(L)9 - 16 mmol/L1 2:53 PM [facility] GEOKnokrdg4218 - 99 mg/dL12/04/2024 2:53 PM [facility] WEFOTY66 - 20 mg/dL12/04/2024 2:53 PM [facility] LABCreatinine0.60.50 - 0.90 mg/dL12/04/2024 2:53 PM [facility] LABEst, Glom Filt Rate>90>60 mL/min/1.45w19112/04/2024 2:53 PM [facility] LABComment: ? These results are [...] therapy that affects renal tubular secretion. BUN/Creatinine Cfczj697 - 2:53 PM [facility] LABCalcium8.2(L)8.6 - 10.4 mg/dL12/04/2024 2:53 PM [facility] LABSpecimen (Source)Anatomical Location / LateralityCollection Method / VolumeCollection TimeReceived TimeBloodBLOOD SPECIMEN / Gquqrxj6012/04/2024 2:53 PM EDT1 3:02 PM EDT Narrative Authorizing ProviderResult TypeResult StatusMarciemily Marion HOME STEREO EQUIPMENT INSTALLER - CNPCHEMISTRY ORDERABLESFinal ResultPerforming OrganizationAddressCity/State/ZIP CodePhone Number [facility] [address] [place] [address], [facility] [phone] * (ABNORMAL) Urinalysis with Reflex to Culture (12/02/2024 11:54 AM EDT) Only the most recent of2 resultswithin the time period is included. ComponentValueRef RangeTest MethodAnalysis TimePerformed AtPathologist Signature Color, UARed(A)Eubjvu8212/02/2024 11:54 AM [facility] Turbidity NZUtzemNragw61/ 11:54 AM [facility] Glucose, UrNEGATIVENEGATIVE mg/dL12/02/2024 11:54 AM [facility] LABBilirubin, WmopqKLRJGKGMPTURVXVB41/18/2025 11:54 AM [facility] LABKetones, UrineNEGATIVENEGATIVE mg/dL12/02/2024 11:54 AM EDT [facility] LABSpecific [place], UA1.0101.010 - 1.6277612/02/2024 11:54 AM [facility] LABUrine Hgb3+(A)FBLTTXGA18/18/2025 11:54 AM [facility] LABpH, Urine7.05.0 - 9. 11:54 AM [facility] LABProtein, UATRACE(A)NEGATIVE mg/dL 12/02/2024 11:54 AM [facility] LABUrobilinogen, UrineNormal 0.0 - 1.0 EU/dL12/02/2024 11:54 AM [facility] LABNitrite, SgmnwTUYSIWDHTHQEDHXF65/18/2025 11:54 AM [facility] Leukocyte Esterase, RimdsRVPVEYHGVNECYKJW31/18/2025 11:54 AM [facility] LABSpecimen (Source)Anatomical Location / LateralityCollection Method / VolumeCollection TimeReceived TimeURINE SPECIMEN / Yvgrdpj1212/02/2024 11:54 AM EDT1 11:57 AM EDT Narrative Authorizing ProviderResult TypeResult StatusDavid Chris DUNCAN ORDERABLES Final ResultPerforming OrganizationAddressCity/State/ZIP CodePhone Number [facility] [address] [id number], [facility] [phone] * CT ABDOMEN PELVIS WO CONTRAST Additional [...] AtPathologist SignatureMagnesium1.81.6 - 2.6 mg/dL12/02/2024 11:12 AM [facility] LABSpecimen (Source)Anatomical Location / LateralityCollection Method / VolumeCollection TimeReceived Time BloodBLOOD SPECIMEN / Loopslp7812/02/2024 11:12 AM EDT1 11:14 AM EDT Narrative Authorizing ProviderResult TypeResult StatusDavance Perez PA-[facility] CENTEREMISTRY ORDERABLESFinal ResultPerforming OrganizationAddressCity/State/ZIP CodePhone Number [facility] [address] [phone] * Lactic Acid (12/02/2024 11:12 AM EDT)ComponentValueRef RangeTest Method Analysis TimePerformed AtPathologist SignatureLactic Acid0.80.5 - 2.2 mmol/L 12/02/2024 11:12 AM [facility] LABSpecimen (Source) Anatomical Location / LateralityCollection Method / VolumeCollection Time Received TimeBloodBLOOD SPECIMEN / Zvapjmn6912/02/2024 11:12 AM EDT1 11:14 AM EDT Narrative Authorizing ProviderResult TypeResult StatusDavid [facility] PA-CCHEMISTRY ORDERABLESFinal ResultPerforming OrganizationAddressCity/State/ZIP CodePhone Number [facility] [address] [place] [address], [facility] [phone] * (ABNORMAL) CMP (12/02/2024 11:12 AM EDT)ComponentValueRef RangeTest Method Analysis TimePerformed AtPathologist DmeydoctoJqonyx421351 - 145 mmol/L 12/02/2024 11:12 AM [facility] LABPotassium3.93.7 - 5.3 mmol/L1 11:12 AM [facility] BETKesmhnck89328 - 107 mmol/L1 11:12 AM [facility] AQEYU70345 - 31 mmol/L1 11:12 AM [facility] LABAnion Gap99 - 16 mmol/L1 11:12 AM [facility] LIDHromfjz2938 - 99 mg/dL12/02/2024 11:12 AM [facility] GSJSGU29 - 20 mg/dL 12/02/2024 11:12 AM [facility] LABCreatinine0.70.50 - 0.90 mg/dL12/02/2024 11:12 AM [facility] LABEst, Glom Filt Rate>90>60 mL/min/1.94q32612/02/2024 11:12 AM [facility] LABComment: ? These results are [...] therapy that affects renal tubular secretion. BUN/Creatinine Ndjdc148 - 11:12 AM [facility] LABCalcium8.4(L)8.6 - 10.4 mg/dL12/02/2024 11:12 AM [facility] LABTotal Protein6.0(L)6.6 - 8.7 g/dL12/02/2024 11:12 AM [facility] LABAlbumin3.73.5 - 5.2 g/dL12/02/2024 11:12 AM [facility] LABAlbumin/Globulin Ratio1.61.0 - 2.510 11:12 AM EDT [facility] LABTotal Bilirubin0.30.00 - 1.20 mg/dL12/02/2024 11:12 AM [facility] LABAlkaline Ozogczcxoyx3528 - 104 U/L 12/02/2024 11:12 AM [facility] TMIJNX41(H)10 - 35 U/L 12/02/2024 11:12 AM [facility] SNQTRF64(H)10 - 35 U/L 12/02/2024 11:12 AM [facility] LABSpecimen (Source) Anatomical Location / LateralityCollection Method / VolumeCollection Time Received TimeBloodBLOOD SPECIMEN / Xxuzvmp6012/02/2024 11:12 AM EDT1 11:14 AM EDT Narrative Authorizing ProviderResult TypeResult StatusDavid Chris GONZALEZUNIVERSITY HOSPITALS EL[facility] CENTEREMISTRY ORDERABLESFinal ResultPerforming OrganizationAddressCity/State/ZIP CodePhone Number [facility] [address] [phone] * EKG 12 Lead (11/23/2024 6:44 PM EDT) Only the most recent of4 resultswithin the time period is included. ComponentValueRef RangeTest MethodAnalysis TimePerformed AtPathologist Signature Ventricular Zyyt40RVICELY MTH RADIOLOGYAtrial Rczt46ZCNUJHI [facility] RAD[facility]YP-R Ojnzcybg568qzPIRB [facility] RADIOLOGYQRS Wiwzmlqo75iyAZKT [facility] RADIOLOGYQ-T Rcvvxqas677 msMHPN [facility] RADIOLOGYQTc Calculation (Davidtt)486msMHPN [facility] RADI[facility]YP Axis74 degreesMHPN [facility] RADIOLOGYR Ipiu00raonntoHVUZ [facility] RADIOLOGYT Ofba14ubbdtliJWEM [facility] RADIOLOGYSpecimen (Source)Anatomical Location / LateralityCollection Method / VolumeCollection TimeReceived Time11/23/2024 6:44 PM EDT Narrative [facility] - 11/23/2024 11:05 PM [...] DOECG ORDERABLES Final ResultPerforming OrganizationAddressCity/State/ZIP CodePhone Number [facility] * Troponin (11/23/2024 6:16 PM EDT) Only the most recent of5 resultswithin the time period is included. ComponentValueRef RangeTest MethodAnalysis TimePerformed AtPathologist Signature Troponin, High Sensitivity<60 - 14 ng/L1 6:16 PM [facility] LABComment:High Sensitivity Troponin values cannot be compared with other Troponin methodologies.Specimen (Source)Anatomical Location / Laterality Collection Method / VolumeCollection TimeReceived TimeBloodBLOOD SPECIMEN / Hrsrzlk1711/23/2024 6:16 PM EDT1 7:20 PM EDT Narrative Authorizing ProviderResult TypeResult StatusChtayler Sanz DOCHEMISTRY ORDERABLESFinal ResultPerforming OrganizationAddressCity/State/ZIP CodePhone Number [facility] [address] [phone] * APTT (11/15/2024 1:25 PM EDT) Only the most recent of2 resultswithin the time period is included. ComponentValueRef RangeTest MethodAnalysis TimePerformed AtPathologist Signature APTT27.823.1 - 33.7 sec11/15/2024 1:25 PM [facility] Comment: ? IV Heparin Therapy Range: ?62.0-94.0 ? Specimen (Source)Anatomical Location / LateralityCollection Method / Volume Collection TimeReceived TimeBloodBLOOD SPECIMEN / Yovolvt1011/15/2024 1:25 PM EDT 11/15/2024 1:49 PM EDT Narrative Authorizing ProviderResult TypeResult StatusJory Hurd DOHEMATOLOGY ORDERABLESFinal ResultPerforming OrganizationAddressCity/State/ZIP CodePhone Number [facility] [address] [place] [address], [facility] [phone] * (ABNORMAL) Brain Natriuretic Peptide (11/15/2024 1:25 PM EDT)ComponentValueRef RangeTest MethodAnalysis TimePerformed AtPathologist SignatureNT Pro-MRH248(H) 0 - 125 pg/mL11/15/2024 1:25 PM [facility] LABSpecimen (Source)Anatomical Location / LateralityCollection Method / VolumeCollection TimeReceived TimeBloodBLOOD SPECIMEN / Pnqdtzb2311/15/2024 1:25 PM EDT1 1:49 PM EDT Narrative Authorizing ProviderResult TypeResult Jayme Hurd DOCHEMISTRY ORDERABLESFinal ResultPerforming OrganizationAddressCity/State/ZIP CodePhone Number [facility] [address] [place] [address], [facility] [phone] * XR CHEST PORTABLE (11/15/2024 1:24 PM [...] acute abnormalities. Authorizing ProviderResult TypeResult StatusAlemanda Hurd [facility] ORDERABLESFinal Result * (ABNORMAL) POCT Glucose (11/08/2024 11:06 PM EDT) Only the most recent of7 resultswithin the time period is included. ComponentValueRef RangeTest MethodAnalysis TimePerformed AtPathologist Signature POC Evkxlpe561(H)70 - 99 mg/dl11/08/2024 11:06 PM [facility] LABPerformed onACCU-CHEK11/08/2024 11:06 PM [facility] LABSpecimen (Source)Anatomical Location / LateralityCollection Method / VolumeCollection TimeReceived Time11/08/2024 11:06 PM EDT11/08/2024 11:19 PM EDT Narrative Authorizing ProviderResult TypeResult StatusUnknown Provider ResultPOINT OF CARE TEST ORDERABLESFinal ResultPerforming OrganizationAddressCity/State/ZIP Code Phone Number [facility] [address] [place] [address], [facility] [phone] * CTA CHEST ABDOMEN PELVIS W WO [...] / Volume Collection TimeReceived TimeBLOOD SPECIMEN / Wvzauzo6211/08/2024 1:16 PM EDT Narrative Authorizing ProviderResult TypeResult Mickie Graham [facility] OF CARE TEST ORDERABLESFinal Result * POCT Venous (11/08/2024 1:14 PM EDT)ComponentValueRef RangeTest MethodAnalysis TimePerformed AtPathologist SignaturePOC Creatinine0.60.6 - 1.2 mg/dL 11/08/2024 1:14 PM [facility] LABEst, Glom Filt Rate>90 >60011/08/2024 1:14 PM [facility] LABComment: Pediatric calculator link https://www.kidney.org/professionals/kdoqi/gfr_calculatorped Effective [...] therapy that affects renal tubular secretion. Sample SzuuBAX5811/08/2024 1:14 PM [facility] LABPerformed on SEE BELOW11/08/2024 1:14 PM [facility] LABComment:Performed on POCSpecimen (Source)Anatomical Location / LateralityCollection Method / VolumeCollection TimeReceived Time11/08/2024 1:14 PM EDT11/08/2024 1:54 PM EDT Narrative Authorizing ProviderResult TypeResult StatusAlen Santos MDPOINT OF CARE TEST ORDERABLESFinal ResultPerforming OrganizationAddressCity/State/ZIP CodePhone Number [facility] [address] [place] [address], [facility] [phone] * (ABNORMAL) Comprehensive Metabolic Panel w/ Reflex to MG (11/08/2024 12:50 PM EDT)ComponentValueRef RangeTest MethodAnalysis TimePerformed AtPathologist [id number] - 144 mEq/L11/08/2024 12:59 PM [facility] LABPotassium reflex Magnesium3.63.4 - 4.9 mEq/L11/08/2024 12:59 PM [facility] HJYWgprurrt08292 - 107 mEq/L11/08/2024 12:59 PM [facility] [id number] - 31 mEq/L11/08/2024 12:59 PM [facility] LABAnion Gap99 - 15 mEq/L11/08/2024 12:59 PM [facility] LEUKbmheje7943 - 99 mg/dL11/08/2024 12:59 PM [facility] BIWCCS622 - 20 mg/dL11/08/2024 12:59 PM EDT [facility] LABCreatinine0.560.50 - 0.90 mg/dL11/08/2024 12:59 PM [facility] LABEst, Glom Filt Rate>90.0>60 11/08/2024 12:59 PM [facility] LABComment: Pediatric calculator link https://www.kidney.org/professionals/kdoqi/gfr_calculatorped Effective [...] secretion. Calcium8.3(L)8.5 - 9.9 mg/dL11/08/2024 12:59 PM [facility] LABTotal Protein6.2(L)6.3 - 8.0 g/dL11/08/2024 12:59 PM [facility] LABAlbumin3.83.5 - 4.6 g/dL11/08/2024 12:59 PM [facility] LABTotal Bilirubin0.40.2 - 0.7 mg/dL11/08/2024 12:59 PM [facility] LABAlkaline Rffzhlwluhp9285 - 130 U/L11/08/2024 12:59 PM EDT [facility] DPVPOS078 - 33 U/L11/08/2024 12:59 PM [facility] RXQKUG768 - 35 U/L11/08/2024 12:59 PM [facility] LABGlobulin2.42.3 - 3.5 g/dL11/08/2024 12:59 PM [facility] LABSpecimen (Source)Anatomical Location / LateralityCollection Method / VolumeCollection TimeReceived TimeBloodBLOOD SPECIMEN / Unknown 11/08/2024 12:50 PM EDT11/08/2024 12:50 PM EDT Narrative Authorizing ProviderResult TypeResult StatusAlen Silgenek MDCHEMISTRY ORDERABLES Final ResultPerforming OrganizationAddressCity/State/ZIP CodePhone Number [facility] [address] [place] [address], [facility] [phone] from Last 3 Months Insurance MemberSubscriberPlan / Payer (Effective 2024-Present)Name:Abbey Garcia Relation to Subscriber:SelfName:Abbey Garcia Payer ID:Not on file Type:Not on file Address: [place] [phone] Advance Directives * Full Code (Latest Code Status on File) Date ActivatedDate BarwlccautvQxydmslu48/14/2023 11:57 AM12/03/2022 7:56 PM NameRelationshipHealthcare Agent RelationshipCommunicationEdna ArtinoParent Secondary Decision Maker* Roddy WinterspousePrimary Decision Maker* Care Teams Team MemberRelationshipSpecialtyStart DateEnd Thomas Alas MD [address] [place] [address] PCP - GeneralFamily Medicine11/08/24
--- OUTSIDE RECORDS SUMMARY | 2024-12-07 14:18 | XMS_ITS | Encounter Summary ---
Author Organization [facility] Address [address], [address] [place] [address] Care Team Providers Care Director Of Reimbursement Name Role Phone Thomas Alas MD Primary Care Provider [phone] Encounter Details DateTypeDepartmentCare Team (Latest Contact Info)Fvijysjmqdn07/18/2025Travel Social History Tobacco UseTypesPacks/DayYears UsedDateSmoking Tobacco: NeverSmokeless [...] Safety Domain Source: IP Abuse ScreeningAnswerDate RecordedPhysical qvabiWaisxb16/18/2025 Verbal jbcgjDpojjv03/18/2025Emotional gdpphWjihaa46/18/2025Financial abuseDenies 12/02/2024Sexual otobaSotdxz63/18/2025CommentsNoSex and Gender InformationValueDate RecordedSex Assigned at BirthNot on fileLegal SexFemale 04/12/2013 2:41 PM ESTGender IdentityNot on fileSexual OrientationNot on file documented as of this encounter Functional Status documented as of this encounter Plan of Treatment Not on file documented as of this encounter Visit Diagnoses Not on filedocumented in this encounter Care Teams Team MemberRelationshipSpecialtyStart DateEnd Date Thomas Alas MD [address] [place] [address] PCP - GeneralFamily Medicine11/08/24documented as of this encounter
--- OUTSIDE RECORDS SUMMARY | 2024-12-07 14:18 | XMS_ITS | Encounter Summary ---
Author Organization [facility] Address [address], [address] [place] [address] Care Team Providers Care Pipe Line Repairer Name Role Phone Thomas Alas MD Primary Care Provider [phone] Encounter Details DateTypeDepartmentCare Team (Latest Contact Info)Narqlhirjrf16/09/2025Travel Social History Tobacco UseTypesPacks/DayYears UsedDateSmoking Tobacco: NeverSmokeless [...] Safety Domain Source: IP Abuse ScreeningAnswerDate RecordedPhysical yzagrAxzdbc66/09/2025 Verbal kochoGuenev55/09/2025Emotional efwilGmrlxr84/09/2025Financial abuseDenies 11/23/2024Sexual lqqocUsvtrf05/09/2025CommentsNoSex and Gender InformationValueDate RecordedSex Assigned at BirthNot on fileLegal SexFemale 04/12/2013 2:41 PM ESTGender IdentityNot on fileSexual OrientationNot on file documented as of this encounter Plan of Treatment Not on file documented as of this encounter Visit Diagnoses Not on filedocumented in this encounter Care Teams Team MemberRelationshipSpecialtyStart DateEnd Date Thomas Alas MD [address] [place] [address] PCP - GeneralFamily Medicine11/08/24documented as of this encounter
--- OUTSIDE RECORDS SUMMARY | 2024-12-07 14:18 | XMS_ITS | Clinical Summary ---
Author Organization [facility] [place] Address [address] [place] [address] Care Team Providers Care Assembly Operator Name Role Phone Britt Alas MD Primary Care Provider [phone] Allergies Active AllergyReactionsCriticalityNoted NphtSjrjuvquNenrfdtnQfcwKys20/02/2025 Adhesive Tape-WrisehmtkKprcuYcbter63/23/2020 Sensitive to certain adhesive tapes. Redness and itchy. CodeineNausea And TlydouxfYhwxit16/02/2025Nsaids (Non-Steroidal Anti- Inflammatory Drug)GI qaksiuigjpmSolvcd61/02/1934VhqxdchuAotppxo99/14/2024 Medications MedicationSigDispense QuantityRefillsLast FilledStart DateEnd DateStatus liothyronine [...] not crush, chew, or split. 60 tablet /6Active colchicine 0.6 mg tablet Indications:Chest painTake 0.5 tablets (0.3 mg) by mouth every other day. Do not start before November 14, 2024. 8 tablet /5Active fentaNYL (Duragesic) 12 mcg/hr Place 1 patch on the skin every 3rd (third) day. Give with 25 mcg patchActive HYDROcodone-acetaminophen ([place]) 5-325 mg tablet Take 2 tablets by mouth every 4 (four) hours if needed.Active methocarbamol (Robaxin) 750 mg tablet Take 750 mg by mouth three times daily.Active mirtazapine (Remeron) 45 mg tablet Take 45 mg by mouth at bedtime.Active mirtazapine (Remeron) 30 mg tablet Take 45 mg by mouth at bedtime.12/04/2024Discontinued methocarbamol (Robaxin) 500 mg tablet Take 750 mg by mouth four times daily.12/04/2024Discontinued ergocalciferol (Vitamin D-2) 1.25 MG (07730 Units) capsule Take 50,000 Units by mouth 1 (one) time per week.11/13/2024Discontinued(Stop Taking at Discharge) fentaNYL (Duragesic) 12 mcg/hr Place 1 patch on the skin every 3rd (third) day. Takes 12 mcg and 25 mcg together every 3 days11/13/2024Discontinued(Stop Taking at Discharge) HYDROcodone-acetaminophen ([place]) 5-325 mg tablet Take 2 tablets by mouth every 4 (four) hours if needed for moderate-severe pain (4-10 pain score).11/13/2024Discontinued(Stop Taking at Discharge) metFORMIN, OSM, (Fortamet) 500 mg 24 hr tablet Take 500 mg by mouth with breakfast and with evening meal. Do not crush, chew, or split.12/04/2024Discontinued colchicine 0.6 mg tablet Indications:Chest painTake 0.5 tablets (0.3 mg) by mouth every other day for 49 doses. 8 tablet Discontinued cefpodoxime (Vantin) 200 mg tablet Take 1 tablet (200 mg) by mouth two times daily for 7 days. 14 tablet Expired Additional Information Patient not taking.Reported on 12/06/2024 Active Problems ProblemNoted DateDiagnosed DateAbnormal thyroid blood test12/05/2024llergic rqrpsncwsthxif37/21/4693Rvraskmh94/21/2025 Overview (12/05/2024): Problem List clean-up per request of Phys. EHR Cmte Edema12/05/20241453Amyvdcrousdj62/21/6557Azxxkbrwyzo10/21/2025Otitis media of left ear12/05/2024Postgastric surgery vrvkimgi24/21/0833Chfhjficd69/21/2025 Overview (12/05/2024): Problem List clean-up per request of Phys. EHR Cmte Common bile duct fxvbrguexr27/02/2025 Assessment & Plan (11/16/2024 2:13 AM EDT): CT chest/abd/pelvis noted CBD dilation and apperance of complex inflammatory changes. Patient has required multiple doses of opiates and antiemetics to control symptoms. Request to transfer to the [facility] where much of her advanced care has been provided with Specific concern that she may need ERCP/advanced endoscopy to further evaluation Pain management GI consult Disorder of endocrine ihztxi5611/09/2024Lumbar euvvzyissgqqp91/25/2025Migraine 11/09/2024Severe protein-calorie malnutrition ([place]: less than 60% of standard weight)11/09/2024Pseudoaneurysm of right femoral hfdwer5411/09/2024 Assessment & Plan (11/12/2024 12:39 PM EDT): [...] pseudoaneurysm 11/02 -stable - follow Hgb Myocardial ohhmzf3711/09/2024 Assessment & Plan (11/12/2024 12:39 PM EDT): [...] need to uptitrate verapamil if BP allows Rzuixagr41/18/2025hest pain10/30/2024 Assessment & Plan (11/16/2024 2:13 AM [...] without complication, without long-term current use of onckjyw2610/30/2024 Assessment & Plan (11/12/2024 12:39 PM EDT): - [facility] - Blood glucose is well controlled on 11/12 without significant use of insulin Assessment & Plan (11/11/2024 10:32 AM EDT): - [facility] - Blood glucose is well controlled on 11/11 without significant use of insulin Assessment & Plan (11/10/2024 4:18 PM EDT): - [facility] - Blood glucose is well controlled without significant use of insulin Assessment & Plan (11/09/2024 1:43 PM EDT): - [facility] Assessment & Plan (11/02/2024 1:29 PM EDT): - Patient currently taking metformin at home -Continue [facility] Assessment & Plan (11/01/2024 7:33 AM EDT): - Patient currently taking metformin at home -Continue [facility] Assessment & Plan (10/31/2024 11:15 AM EDT): - Patient currently taking metformin at home -Continue [facility] Assessment & Plan (10/30/2024 9:00 PM EDT): - Patient currently taking metformin at home, will begin [facility], [facility] Primary ilidzrtseltd54/15/2025Other bxkabkonjqvjuz44/15/3481Zyqrlv84/15/2025 Assessment & Plan (11/02/2024 1:29 PM EDT): [...] Stable, last BM yesterday Median arcuate ligament jrvaznbg81/15/2025 Assessment & Plan (11/12/2024 12:39 PM EDT): [...] and then MALS release S/P laparoscopic sleeve bslygsslrbf98/15/2025 Assessment & Plan (11/12/2024 12:39 PM EDT): [...] 9:00 PM EDT): - Stable Protein calorie nmsfsfsvmaio40/15/2025 Assessment & Plan (11/02/2024 1:29 PM EDT): [...] was placed on dual antiplatelet therapy, statin, beta-recee - due to recurrence of chest pain today patient brought urgently back to Np Assessment & Plan (11/01/2024 11:57 AM EDT): [...] -Pending TTE, cath Spontaneous dissection of coronary fksqas3810/30/2024 Assessment & Plan (11/12/2024 12:39 PM EDT): [...] pain today patient brought urgently back to Np Feeding hgmeunxpalwp33/09/2025roken central line09/21/2024Long term (current) use of opiate vluvcpyyk99/07/2025Poor response to enteral yyfaiqdiy71/28/2025 Sepsis due to Sevocnfomd97/04/2025 Assessment & Plan (08/19/2024 1:03 PM EDT): - source is likely the cellulitis around the J-tube status post J-tube removal. - CT scan from [facility] showing no abscess. - Infectious disease recommendations appreciated, continue with ceftriaxone. - Repeat blood cultures on 08/16: NGTD - central line in place, does not look like infected, continue monitoring, central line care. Assessment & Plan (08/18/2024 12:20 PM EDT): - source is likely the cellulitis around the J-tube status post J-tube removal. - CT scan from [facility] showing no abscess. - Infectious disease recommendations appreciated, continue with ceftriaxone. - Repeat blood cultures on 08/16: NGTD - central line in place, does not look like infected, continue monitoring, central line care. Sepsis due to Ktirkvjidxou90/04/2025 Assessment & Plan (08/19/2024 1:03 PM EDT): - source is likely the cellulitis around the J-tube status post J-tube removal. - CT scan from [facility] showing no abscess. - Infectious disease recommendations appreciated, continue with ceftriaxone. - Repeat blood cultures on 08/16: NGTD - central line in place, does not look like infected, continue monitoring, central line care. Assessment & Plan (08/18/2024 12:20 PM EDT): - source is likely the cellulitis around the J-tube status post J-tube removal. - CT scan from [facility] showing no abscess. - Infectious disease recommendations appreciated, continue with ceftriaxone. - Repeat blood cultures on 08/16: NGTD - central line in place, does not look like infected, continue monitoring, central line care. Zoqbyuuhyaxaq86/04/2025 Assessment & Plan (11/12/2024 12:39 PM EDT): [...] admission. - As needed antiemetics Chronic pain ylzmnzgx08/04/2025 Assessment & Plan (11/12/2024 12:39 PM EDT): [...] and scheduled tramadol. Continue with as needed [place]. Assessment & Plan (08/18/2024 12:20 PM EDT): - continue with home meds including fentanyl patch and scheduled tramadol. Continue with as needed [place]. 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 Assessment & Plan (08/18/2024 12:20 PM EDT): - status postresection. History of adrenal iysoxxiaqancn68/04/2025 Assessment & Plan (11/12/2024 12:39 PM EDT): [...] PM EDT): - continue with dexamethasone Acquired kzegtjkaqohfkn55/04/2025 Assessment & Plan (11/16/2024 2:13 AM EDT): [...] 12:20 PM EDT): - continue with levothyroxine. Lhpqleulqsxnmj47/03/2025 Assessment & Plan (11/12/2024 12:39 PM EDT): [...] well as other thyroid function testing Morbid ygvazsw0608/17/2024 Assessment & Plan (08/19/2024 1:03 PM EDT): [...] the patient and she is in agreement. Dylzkjxeik64/02/2025 Assessment & Plan (08/17/2024 1:27 AM EDT): -Unclear blood cultures - Commence patient on Vanco/cefepime - Monitor patient blood cultures - Also evaluate lab tests and correct abnormalities - Consult infectious disease - Obtain 2D echocardiogram History of laparoscopic pltskyefwbastjv67/25/2025hronic, continuous use of rwoqjqc4004/11/2024Starvation /25/2025Intestinal zbmishrje44/07/2024 Screening for diabetes mellitus (DM)01/22/2024History of small bowel obstruction 01/21/2024Impaired intestinal ejysnxznki87/18/0250Frvlg03/25/2024urrent use of steroid bfbenpsfca32/21/2024ommunity acquired pneumonia of left lower lobe of lung08/07/2023Idiopathic axzlylobxvk75/21/2024spiration pneumonia of left lower lobe due to vomit08/04/2023Syncope and qtoppxuy85/19/2024Heart srksmvn1606/29/2023 Acute renal failure superimposed on chronic kidney lgrdnzk0806/29/2023Hypokalemia 06/29/2023ecreased oral vlsfvz7505/25/20230426Hwbqwdjkzazfvf45/19/2024nxiety and gnaohcdofs81/23/2023Feeding xccwdqf2612/07/2022Therapeutic drug monitoring 12/07/20225822Kktsjfpfcri87/12/2023ilious vomiting with fggnpb5210/28/2022Intractable vomiting with mtzxay2810/25/20223690Nejulz92/20/2023 Overview (11/09/2024): Takes Pro FE daily. Last Assessment & Plan: Assessment: iron infusions ~1 month ago Acute pain of right knee08/04/2022all stone08/04/2022Internal derangement of right gifqutbg75/20/2023Mixed incontinence urge and lftkeo9708/04/2022Other specified noninflammatory disorders of qpbylk8208/04/2022atellofemoral pain syndrome of right knee08/04/2022Right flank pain08/04/2022Vaginal pain08/04/2022 Rash and nonspecific skin rynvfxoh64/07/2023History of Isabel-en-Y gastric bypass 06/24/2022ipolar yprargqd26/07/2023astric avstiu2201/29/2022Iron deficiency axuyqz5311/01/2021Ventral hernia without obstruction or sitwbngn55/27/2022 Overview (12/05/2024): Last Assessment & Plan: Assessment: will have surgery Calculus of oargsi8903/10/2021bnormal finding on imaging of liver04/07/2020 Moderate recurrent major fikpswfzzm21/18/2020Situational gdqqsk7601/03/2020Panic disorder without ztohopokgvm25/06/2020Trauma and stressor-related disorder 11/21/2019Duodenogastric reflux of bile11/16/20194556Kycpks48/10/2020Preoperative uekxbbtvnaq69/10/2020Regurgitation of food09/25/2019Laryngopharyngeal reflux 10/07/2018Obstructive sleep apnea qjzfbycb00/23/2019 Overview (12/05/2024): wears mask every night Ufphcpmnyugacv62/20/2019Reactive iymnsgbotniq49/19/2019Chronic fatigue syndrome 09/19/2018Iron mithtxlzkf10/05/2019Vitamin D jxxlxcotwe55/05/2019Insomnia 09/15/2018Maltracking of right qiatcxt5406/27/2018Chondromalacia of patella, right 05/30/2018Arthritis of right knee05/30/201839 weeks gestation of 11/23/2016PCOS (polycystic ovarian syndrome)10/02/2013 Overview (11/09/2024): Last Assessment & Plan: Assessment: monitored per PCP Encounters DateTypeDepartmentCare SflyYswoubvswcf24/22/2025 11:20 AM EDTOffice Visit [facility] [address] [place] [address] Wali Collins MD Spontaneous dissection of coronary artery (Primary Dx); Other fatigue; Precordial pain; Anemia due to acute blood loss12/06/2024Orders Only [facility] [address] [place] [address] Maryuri Downing MA Anemia, unspecified type (Primary Dx)12/05/2024Orders Only [facility] [address] [place] [address] ProviderSiri MD 12/04/20245172Lmdtcc48/17/2025Orders Only [facility] [address] [place] [address] Muna Michael RN Common bile duct dilation (Primary Dx)11/26/2024 7:34 PM EDT - 11/26/2024 9:45 PM EDTEmergency [facility] Emergency [address] [place] [address] Israel Jeong MD Acute UTI (Primary Dx) Discharge Disposition: Home or Self Care ()11/26/20240741Yjromr24/01/2025 7:56 PM EDT - 11/17/2024 2:42 PM EDTHospital Encounter [facility] [address] [place] [address] Sandeep Casey MD Chest pain (Primary Dx) Discharge Disposition: Home-Health Care Svc ()11/15/20245135Vppzwp47/25/2025 10:47 AM EDT - 11/13/2024 2:34 PM EDTHospital Encounter [facility] [address] [place] [address] Urbano Santos MD Chang, Kyu Chul, MD Schwarz, Stephanie, DO Chest pain (Primary Dx); Chronic narcotic use Discharge Disposition: Home-Health Care Svc ()11/09/20246807Qictwi06/18/2025 8:45 PM EDTAnesthesia Event [facility] Main Operating Room [address] [place] [address] David Reyes MD 11/02/2024 8:45 PM EDT - 11/02/2024 11:15 PM EDTSurgery [facility] Main Operating Room [address] [place] [address] Jose Angel Fox MD EXPLORATION, HEMATOMA Right Groin11/02/2024 5:41 PM EDT - 11/02/2024 6:41 PM EDT Surgery [facility] Heart [facility] [address] [place] [address] Wali Collins MD Coronary ohegluswejm88/17/2025 12:30 PM EDT - 11/01/2024 1:30 PM EDTSurgery [facility] [address] [place] [address] Mitchell Agustin MD Coronary bogbjyduxwa40/16/2025 1:30 PM EDT - 10/31/2024 2:30 PM EDTSurgery [facility] [address] [place] [address] Tino Gilmore MD Coronary zelvhrwuvko14/15/2025 6:28 PM EDT - 11/07/2024 5:10 PM EDTHospital Encounter [facility] [address] [place] [address] Sandeep Casey MD Spencer, Caleb T, MD Vicente, David, MD Mansur, Sarmed, MD Moukarbel, George, MD Hematoma (Primary Dx); Chest pain; NSTEMI (non-ST elevated myocardial infarction) (CMS/HCC); Spontaneous dissection of coronary artery; Gastroparesis; Gastroesophageal reflux disease without esophagitis Discharge Disposition: Home-Health Care [facility] (06)10/30/2024Travelfrom Last 3 Months Family History Medical HistoryRelationNameCommentsNo Known ProblemsFatherNo Known Problems MotherRelationNameStatusCommentsFatherAliveMotherAlive Social History Tobacco UseTypesPacks/DayYears UsedDateSmoking Tobacco: NeverSmokeless Tobacco: Never Tobacco Cessation:Counseling Given: Not Answered Alcohol UseStandard Drinks/WeekCommentsNot Currently0 (1 standard drink = 0.6 oz pure alcohol)[facility] UtilitiesAnswerDate RecordedIn the past 12 months has the [employer], gas, oil, or water [employer] threatened to shut off services in your [...] 11/15/2024CommentsNoSex and Gender InformationValueDate RecordedSex Assigned at ChppwGtozwz18/03/2025 3:45 PM EDTLegal ZxbOzzoby04/30/2022 12:07 AM EDTGender PduleyadEzfdnc86/03/2025 3:45 PM EDTSexual OrientationHeterosexual or Waffmpps89/03/2025 3:45 PM EDT Last Filed Vital Signs Vital SignReadingTime TakenCommentsBlood Vidommcc598/6012/06/2024 11:10 AM EDT Glzil173512/06/2024 11:10 AM LMISnbfvuertbm46.6 ??C (97.9 ??F)11/26/2024 7:34 PM EDTRespiratory Czka8349 9:25 PM EDTOxygen Sovjqiyqcj04%12/06/2024 11:10 AM EDTInhaled Oxygen Concentration--Xugsxr67.6 kg (180 lb)11/26/2024 7:34 PM EDT Toxnrb924.6 cm (5' 6 )12/06/2024 11:10 AM EDTBody Mass Index29.0511/26/2024 7:34 PM EDT Plan of Treatment DateTypeDepartmentCare Team (Latest Contact Info)Ukgdnuquipb14/30/2025 9:00 AM EDTAppointment [facility] [address] [place] [address] Braxton Bellamy MD [address] [facility] [address] [facility] Medical [facility] [address] 12/14/2024 10:30 AM EDTAppointment [facility] X-Ray Imaging [address] [place] [address] 01/31/2025 11:00 AM ESTOffice Visit [facility] [address] [place] [address] Wali Collins MD [address] [place] [address] Health MaintenanceDue DateLast DoneCommentsDiabetes: Retinopathy Screening 1999Depression Prnnxkvle93/17/2002Varicella Vaccines (1 of 2 - 13+ 2-dose series)2002Diabetes: Urine Protein Ggddcayvg34/17/2009Hepatitis B Vaccines (1 of 3 - 19+ 3-dose series)2008Pneumococcal Vaccine: Pediatrics (0 to 5 Years) and At-Risk Patients (6 to 64 Years) (1 of 2 - PCV)2008Zoster Vaccines (1 of 2)2008HPV Vaccines (1 - Risk 3-dose SCDM series)2016 HPV/Xxqmax5504/03/2019Cervical Cancer Ftshdgjpw36/06/2024Pap Smear05/22/2023 1COVID-19 Vaccine ( season)/05/2021, 06/23/2020 Influenza Vaccine (#1)509/, 11/16/2021, 01/01/2021, Additional history existsDiabetes: Hemoglobin A1C/509/5Adult Tetanus HIB VaccinesAged OutNo longer eligible based [...] Procedures Procedure NamePriorityDate/TimeAssociated DiagnosisCommentsURINALYSIS MICROSCOPIC WITH REFLEX URQUFYXNJWA99/12/2025 8:27 PM EDT SERUM FOTPRHLFZEJYGMF70/12/2025 8:27 PM EDT URINALYSIS WITH REFLEX SOOYRNXHUSL23/12/2025 8:27 PM EDT XR CHEST 1 VAQSSLZR16/12/2025 8:17 PM EDT ECG 12-GTHSXQMA88/12/2025 8:13 PM EDT CBC WITH AUTO MDZXTUQTEIIKEFJY77/12/2025 8:05 PM EDT HIGH SENSITIVITY TROPONIN ISTAT1 8:05 PM EDT DAPSFDWGRS45/12/2025 8:05 PM EDT COMPREHENSIVE METABOLIC DWTGTNKYL04/12/2025 8:05 PM EDT CBC AND WACFGMXPGWADEPGE18/12/2025 8:05 PM EDT HEPATIC FUNCTION PANELAdd-On11/17/2024 5:17 AM EDT MAGNESIUMPending Jrjmljfee87/03/2025 5:17 AM EDT CBCPending Dtoqiesrw93/03/2025 5:17 AM EDT BASIC METABOLIC PANELPending Gjmuemhoe65/03/2025 5:17 AM EDT MR ABDOMEN WO CONTRAST DPWJIJLR83/02/2025 8:32 PM EDT ECG 12-EUDGZlqtlkf17/02/2025 9:55 AM EDT HEPATIC FUNCTION PANELSTAT Add-on11/16/2024 5:36 AM EDT HIGH SENSITIVITY TROPONIN IAdd-On11/16/2024 5:36 AM EDT BULGikiyvs25/02/2025 5:36 AM EDT BASIC METABOLIC PEKEXOefjxqk26/02/2025 5:36 AM EDT XR CHEST 1 VPAUApylath37/29/2025 12:51 PM EDT POCT GLUCOSE METER UNSOLICITED HUYKQKZZrnqmoh85/29/2025 11:08 AM EDT HOME O2 EVAL (DESATURATION SCREEN)Swqmyyt5911/13/2024 10:32 AM EDTHIGH SENSITIVITY TROPONIN IPending Uoaucrnud04/29/2025 7:03 AM EDT BASIC METABOLIC PANELPending Uyocczfkw36/29/2025 7:03 AM EDT CBCPending Ecvqjrius74/29/2025 7:03 AM EDT POCT GLUCOSE METER UNSOLICITED AJUMMBWRprydyp40/29/2025 7:01 AM EDT HIGH SENSITIVITY TROPONIN IPending Qisdttuzr22/29/2025 12:17 AM EDT POCT GLUCOSE METER UNSOLICITED ELOOSTIYuflbrd28/29/2025 12:16 AM EDT HIGH SENSITIVITY TROPONIN IPending Gltssfqqn25/28/2025 6:28 PM EDT POCT GLUCOSE METER UNSOLICITED VNVXXYWAccxnjk75/28/2025 6:18 PM EDT ECG 12-IWOHZqcsjof35/28/2025 1:41 PM EDT HIGH SENSITIVITY TROPONIN ISTAT11/12/2024 1:34 PM EDT HIGH SENSITIVITY TROPONIN IPending Yywcptyil45/28/2025 10:56 AM EDT POCT GLUCOSE METER UNSOLICITED SKOMBQBYkunbiy31/28/2025 10:55 AM EDT HIGH SENSITIVITY TROPONIN IPending Rdogwsiio02/28/2025 6:30 AM EDT BASIC METABOLIC PANELPending Hfucoybwd36/28/2025 6:30 AM EDT CBCPending Eddnutoba86/28/2025 6:30 AM EDT POCT GLUCOSE METER UNSOLICITED QTQXBLTMycrixi33/28/2025 6:27 AM EDT HIGH SENSITIVITY TROPONIN IPending Volqnwmzo23/28/2025 12:00 AM EDT POCT GLUCOSE METER UNSOLICITED WBKFIDVQysjewx65/27/2025 11:56 PM EDT CTA CHEST W IV TMNKZGHBINMD62/27/2025 8:55 PM EDT ECG 12-KWANHCIZ35/27/2025 6:15 PM EDT HIGH SENSITIVITY TROPONIN IPending Vrliupfgx92/27/2025 6:14 PM EDT POCT GLUCOSE METER UNSOLICITED FGDTQQUXqrpvzf26/27/2025 5:16 PM EDT C-REACTIVE PROTEINPending Pwhysxfdo28/27/2025 3:29 PM EDT POCT GLUCOSE METER UNSOLICITED OMLPCJPXfqaalx70/27/2025 12:49 PM EDT SEDIMENTATION RATEAdd-On11/11/2024 6:39 AM EDT BASIC METABOLIC PANELPending Jirdmcejv81/27/2025 6:39 AM EDT CBCPending Uekgqqwcb83/27/2025 6:39 AM EDT POCT GLUCOSE METER UNSOLICITED VWOAHWKXqojvzm08/27/2025 6:35 AM EDT POCT GLUCOSE METER UNSOLICITED JSDALEXSdfylqa39/27/2025 12:55 AM EDT HIGH SENSITIVITY TROPONIN IPending Aytuaerqz54/26/2025 8:50 PM EDT POCT GLUCOSE METER UNSOLICITED NIFAFHGDlfioev82/26/2025 6:24 PM EDT ECG 12-UEUDEKSW30/26/2025 3:11 PM EDT HIGH SENSITIVITY TROPONIN IPending Imhvgthts55/26/2025 2:22 PM EDT POCT GLUCOSE METER UNSOLICITED UERUBTLGzevumy74/26/2025 1:06 PM EDT LEXISCAN STRESS MYOCARDIAL PERFUSION RTABQMHSlkbitx53/26/2025 11:23 AM EDT XR CHEST 1 VYHBOzsorif46/26/2025 9:01 AM EDT ECG 12-FEFQXfcmliw64/26/2025 8:09 AM EDT HIGH SENSITIVITY TROPONIN ISTAT11/10/2024 7:44 AM EDT POCT GLUCOSE METER UNSOLICITED TYSPSCRLwsigjc27/26/2025 7:39 AM EDT POCT GLUCOSE METER UNSOLICITED APQEGPNWxswnjj29/25/2025 9:21 PM EDT POCT GLUCOSE METER UNSOLICITED ZKTFJIKKvijlra94/25/2025 4:12 PM EDT CBC WITH AUTO FJMEIQHBKMWNOartozr54/25/2025 2:09 PM EDT KGEPFXWRFBnbthsg63/25/2025 2:09 PM EDT CBC AND WFDSXYYPQKHKDoundjh95/25/2025 2:09 PM EDT BASIC METABOLIC TWTNUWtzrnpr16/25/2025 2:09 PM EDT HIGH SENSITIVITY TROPONIN XEhtivvj09/25/2025 2:09 PM EDT ECG 12-FODMCsxqyfr01/25/2025 12:39 PM EDT POCT GLUCOSE METER UNSOLICITED FKYRQPEFjbahpk98/23/2025 4:00 PM EDT POCT GLUCOSE METER UNSOLICITED FUAZQHXPfmsptq70/23/2025 11:55 AM EDT ECG 12-KEMLHrjxpgl52/23/2025 11:48 AM EDT POCT GLUCOSE METER UNSOLICITED IYYSAIRTluzavd70/23/2025 7:43 AM EDT TNZHSAD9411/07/2024 6:27 AM EDT HIGH SENSITIVITY TROPONIN ISTAT Add-on11/07/2024 4:50 AM EDT CALCIUM, ROAICBMIefptnb40/23/2025 4:50 AM EDT GGAKCKLPDQGlpojyy93/23/2025 4:50 AM EDT IPFBCNJFHZpwtbfx25/23/2025 4:50 AM EDT BASIC METABOLIC YRDKGPhfxjqx31/23/2025 4:50 AM EDT POCT GLUCOSE METER UNSOLICITED CUDQISFLldayvg49/22/2025 10:59 PM EDT POCT GLUCOSE METER UNSOLICITED PEKBDNBVqphsay72/22/2025 8:22 PM EDT POCT GLUCOSE METER UNSOLICITED QNNTTIAEiidqky58/22/2025 5:05 PM EDT CALCIUM, IONIZEDPending Gdococfwp94/22/2025 12:24 PM EDT POCT GLUCOSE METER UNSOLICITED UQAHTBXWnruouq18/22/2025 12:19 PM EDT VASC US LOWER EXTREMITY PSEUDOANEURYSM DUPLEX KDPRDBpqubkm39/22/2025 8:24 AM EDT POCT GLUCOSE METER UNSOLICITED LJSOWTXLgywwoz92/22/2025 7:52 AM EDT CBC WITH AUTO DIFFERENTIALPending Jalbrgtci71/22/2025 5:50 AM EDT CBC AND QJKZUWBGKQSCMjscxfb85/22/2025 5:50 AM EDT PHOSPHORUSPending Dnessqakn64/22/2025 5:50 AM EDT MAGNESIUMPending Zanemsfsd96/22/2025 5:50 AM EDT BASIC METABOLIC PANELPending Gmsmnugqk72/22/2025 5:50 AM EDT POCT GLUCOSE METER UNSOLICITED PTZZIOMKihbckk61/21/2025 10:07 PM EDT POCT GLUCOSE METER UNSOLICITED JQVCNRFOdhqjki58/21/2025 4:37 PM EDT POCT GLUCOSE METER UNSOLICITED PMMROEVFmgjeib89/21/2025 11:36 AM EDT HEMOGLOBIN AND HEMATOCRIT, BLOODPending Tuzlgojty40/21/2025 9:01 AM EDT POCT GLUCOSE METER UNSOLICITED DZHIATRIfolthq52/21/2025 8:36 AM EDT CBCPending Pqevrcsuc76/21/2025 3:48 AM EDT PHOSPHORUSPending Fhpqjgtts21/21/2025 3:48 AM EDT MAGNESIUMPending Bbkxemzqx48/21/2025 3:48 AM EDT BASIC METABOLIC PANELPending Smnkjltzd47/21/2025 3:48 AM EDT CALCIUM, IONIZEDPending Zlfcihqin20/21/2025 1:00 AM EDT HEMOGLOBIN AND HEMATOCRIT, BLOODPending Xumibopoc40/21/2025 12:54 AM EDT POCT GLUCOSE METER UNSOLICITED FUNJSOETqvddsh35/20/2025 10:33 PM EDT BASIC METABOLIC PANELSTAT Add-on11/04/2024 8:17 PM EDT HEMOGLOBIN AND HEMATOCRIT, BLOODPending Rdispncis59/20/2025 8:13 PM EDT POCT GLUCOSE METER UNSOLICITED FDKJDUIOcqxkxt35/20/2025 5:12 PM EDT TRANSFUSE RED BLOOD CJVJBEdctbno75/20/2025 2:34 PM EDTECG 12-PEFENQBZ40/20/2025 1:59 PM EDT HEMOGLOBIN AND HEMATOCRIT, BLOODPending Mzlvqidjo88/20/2025 1:38 PM EDT BASIC METABOLIC NUSNSXDRD05/20/2025 1:38 PM EDT HIGH SENSITIVITY TROPONIN ISTAT11/04/2024 1:38 PM EDT POCT GLUCOSE METER UNSOLICITED PSOVDGHFzsnjuk95/20/2025 1:06 PM EDT CTA ABDOMEN PELVIS W IV HJMUTBOUPtxdkay75/20/2025 12:48 PM EDT POCT GLUCOSE METER UNSOLICITED XDGJMLNUpzygdx29/20/2025 9:20 AM EDT POCT GLUCOSE METER UNSOLICITED NUKOILIWbcipcx66/20/2025 5:10 AM EDT CBCPending Fpesisqxn70/20/2025 5:05 AM EDT CALCIUM, IONIZEDPending Ubuadefgp10/20/2025 5:05 AM EDT PHOSPHORUSPending Oifqgsugt89/20/2025 5:05 AM EDT MAGNESIUMPending Oajrpruxx63/20/2025 5:05 AM EDT BASIC METABOLIC PANELPending Tlyfdiswg31/20/2025 5:05 AM EDT POCT GLUCOSE METER UNSOLICITED MLVMDYCPwfafxe81/20/2025 12:12 AM EDT HEMOGLOBIN AND HEMATOCRIT, BLOODPending Uzoxagnck71/20/2025 12:09 AM EDT POCT GLUCOSE METER UNSOLICITED CSPOLHWFvidtqv49/19/2025 9:52 PM EDT HEMOGLOBIN AND HEMATOCRIT, BLOODPending Geteaxcqn21/19/2025 6:34 PM EDT POCT GLUCOSE METER UNSOLICITED GUIGNVVJxttjgc97/19/2025 5:35 PM EDT CBCPending Loaadmlti32/19/2025 1:23 PM EDT POCT GLUCOSE METER UNSOLICITED FBLYUSJUijjtjs22/19/2025 11:35 AM EDT POCT GLUCOSE METER UNSOLICITED TSUMBYZYqmaxom58/19/2025 7:46 AM EDT CBCPending Hrnhtankk41/19/2025 4:46 AM EDT CALCIUM, IONIZEDPending Czathqmqs34/19/2025 4:46 AM EDT PHOSPHORUSPending Ykkjtasjx54/19/2025 4:46 AM EDT MAGNESIUMPending Ssfomsgml01/19/2025 4:46 AM EDT BASIC METABOLIC PANELPending Wnfcwzzwq80/19/2025 4:46 AM EDT INTEM GIotabxa82/19/2025 1:58 AM EDT HEPTEM TJnlmdpc21/19/2025 1:58 AM EDT EXTEM EWhnrfei88/19/2025 1:58 AM EDT FIBTEM JDxgzygl88/19/2025 1:58 AM EDT RVIHGAQ1011/03/2024 12:07 AM EDT CAZZDWCHDDXYWD92/19/2025 12:07 AM EDT RCHRBGJXCBXZQ28/19/2025 12:07 AM EDT BASIC METABOLIC TBZKYTEKM92/19/2025 12:07 AM EDT SCGFEKSPKKBGDW44/19/2025 12:07 AM EDT PROTIME-FIGNCOB1911/03/2024 12:07 AM EDT POCT GLUCOSE METER UNSOLICITED HECKFQHLepfazz12/18/2025 10:48 PM EDT TRANSFUSE RED BLOOD LSONKUhjlfhg66/18/2025 9:30 PM EDTTRANSFUSE RED BLOOD CELLS Oihogch3411/02/2024 9:10 PM EDTPR AN ELECTIVE ENDOTRACHEAL BFTWRWWpasola51/18/2025 8:56 PM EDT REPAIR, XVINNBDGMNEUVA61/18/2025 8:44 PM EDT Hematoma Right Groin EXPLORATION, PWHSQHLF93/18/2025 8:44 PM EDT Hematoma Right Groin POCT GLUCOSE METER UNSOLICITED KTINOPJZfebfpr94/18/2025 8:30 PM EDT PREPARE HHFDipozrs92/18/2025 8:05 PM EDT PREPARE FAGBgbrimh12/18/2025 8:05 PM EDT TYPE AND SCREENPending Rnovdujix32/18/2025 8:02 PM EDT CBCPending Jqrvmonpb29/18/2025 8:02 PM EDT RED BVBGydndsh78/18/2025 8:00 PM EDT EXTRA XQLFASlypzas18/18/2025 8:00 PM EDT ACTIVATED CLOTTING QCFSXnzmaqm59/18/2025 4:43 PM EDT POCT ACTIVATED CLOTTING UAXDKwkdkni48/18/2025 4:40 PM EDT POCT ACTIVATED CLOTTING VGSZWpviran26/18/2025 4:19 PM EDT ACTIVATED CLOTTING EODZJcopnth43/18/2025 4:13 PM EDT ACTIVATED CLOTTING YJVIEbznjbc95/18/2025 2:56 PM EDT INSTANT WAVE FREE RATIO (IFR)Tooqyrk2011/02/2024 2:53 PM EDT Spontaneous dissection of coronary artery ULTRASOUND - YPYJLFETCncxwgs18/18/2025 2:53 PM EDT Spontaneous dissection of coronary artery CORONARY LBIEXECGRUZJahnekd19/18/2025 2:53 PM EDT Spontaneous dissection of coronary artery ACTIVATED CLOTTING MHNYHtwnncn02/18/2025 2:24 PM EDT ECG 12-ACHUBDMX03/18/2025 1:18 PM EDT HIGH SENSITIVITY TROPONIN ISTAT11/02/2024 1:01 PM EDT POCT GLUCOSE METER UNSOLICITED GBHOIGCDkejspu95/18/2025 11:07 AM EDT POCT GLUCOSE METER UNSOLICITED CYHCXIMLaichnn02/18/2025 7:31 AM EDT LIGHT GREEN FUZXctdwcv82/18/2025 6:15 AM EDT EXTRA FMMEWHkrslxf36/18/2025 6:15 AM EDT CBCPending Gmohqnvrw82/18/2025 6:15 AM EDT POCT GLUCOSE METER UNSOLICITED XKHORYCQndnomf96/17/2025 8:42 PM EDT POCT GLUCOSE METER UNSOLICITED ADFQCMXEvoeyth53/17/2025 6:04 PM EDT ACTIVATED CLOTTING FPMDBeuvxwt56/17/2025 4:36 PM EDT POCT ACTIVATED CLOTTING YFTMWfjmpoz69/17/2025 4:33 PM EDT ULTRASOUND - RTTNGIPGGsvjwus08/17/2025 1:30 PM EDT NSTEMI (non-ST elevated myocardial infarction) ([facility]/HCC) CORONARY BXDONMUOGDLRnscwle96/17/2025 1:30 PM EDT NSTEMI (non-ST elevated myocardial infarction) (CMS/HCC) ACTIVATED CLOTTING BIECOrxsazn72/17/2025 1:27 PM EDT ACTIVATED CLOTTING NPEJRcbefzw80/17/2025 1:14 PM EDT ECG 12-ZYSCRqtespr50/17/2025 12:09 PM EDT POCT GLUCOSE METER UNSOLICITED KKMAGHTHujwtlv50/17/2025 11:30 AM EDT BASIC METABOLIC PANELPending Dexesxqgf71/17/2025 10:10 AM EDT VZJOTJT4111/01/2024 10:10 AM EDT POCT GLUCOSE METER UNSOLICITED DAITSUWGtflsbe15/17/2025 7:43 AM EDT HIGH SENSITIVITY TROPONIN TCbkyu4911/01/2024 6:42 AM EDT ANTI-FACTOR XAPending Oczdzpgrp08/17/2025 6:04 AM EDT POCT GLUCOSE METER UNSOLICITED OTQFPRARwavjxp97/17/2025 6:02 AM EDT TOXICOLOGY PANEL PQGGJYtmeoje88/17/2025 2:12 AM EDT POCT GLUCOSE METER UNSOLICITED GEKIPGZQrporaq81/16/2025 8:20 PM EDT LEFT HEART JPHUIjwrmno41/16/2025 7:34 PM EDT NSTEMI (non-ST elevated myocardial infarction) (CMS/HCC) CORONARY YWWEZDSCWBTXspcfzl99/16/2025 7:34 PM EDT NSTEMI (non-ST elevated myocardial infarction) (CMS/HCC) POCT GLUCOSE METER UNSOLICITED HSAIFORKcfiaes40/16/2025 11:55 AM EDT LIMITED ECHO (TTE) W/ COLOR FLOW AND IMAGING TRAWMTyekyaj55/16/2025 11:40 AM EDT ECG 12-BVSHThiyppf45/16/2025 8:47 AM EDT ECG 12-GXUMWmktpak65/16/2025 8:25 AM EDT POCT GLUCOSE METER UNSOLICITED RSZJBVYIlzpszr89/16/2025 7:22 AM EDT HEMOGLOBIN N0EThx-Mh69/16/2025 6:27 AM EDT LIPID PANELAdd-On10/31/2024 6:27 AM EDT MAGNESIUMAdd-On10/31/2024 6:27 AM EDT ANTI-FACTOR XDDlikjwn81/16/2025 6:27 AM EDT QBNHipyaqb15/16/2025 6:27 AM EDT BASIC METABOLIC QPICHQccrmty16/16/2025 6:27 AM EDT HIGH SENSITIVITY TROPONIN NImtxh7610/31/2024 6:27 AM EDT ANTI-FACTOR SROfetyqx98/16/2025 1:38 AM EDT HIGH SENSITIVITY TROPONIN CUgbre7610/31/2024 1:38 AM EDT POCT GLUCOSE METER UNSOLICITED RWNRNNOBfufkgp14/15/2025 9:12 PM EDT ECG 12-LEDTXVKL08/15/2025 8:00 PM EDT ANTI-FACTOR XASTAT Add-on10/30/2024 7:11 PM EDT HTTLZPZX80/15/2025 7:11 PM EDT TSH3 REFLEX TO YR4ZNWD0910/30/2024 7:11 PM EDT CBC WITH AUTO ITUMDCQEDQUFXRTD51/15/2025 7:11 PM EDT B-TYPE NATRIURETIC ACQZJWJZNFC93/15/2025 7:11 PM EDT CBC AND LGYNZLUBLYQPGPMM68/15/2025 7:11 PM EDT PROTIME-MXINOZO1810/30/2024 7:11 PM EDT WQDVDUOYGCMGKL74/15/2025 7:11 PM EDT HIGH SENSITIVITY TROPONIN ISTAT10/30/2024 7:11 PM EDT VGTPMAWGZGSFE16/15/2025 7:11 PM EDT COMPREHENSIVE METABOLIC HDPXUFQCJ27/15/2025 7:11 PM EDT from Last 3 Months Results * Urinalysis microscopic with reflex culture (11/26/2024 8:27 PM EDT)Component ValueRef RangeTest MethodAnalysis TimePerformed AtPathologist SignatureRBC, Urine0-2None Seen, 0-2 /HPF11/26/2024 8:52 PM [facility] ([facility]) WBC, Urine0-2None Seen, 0-2 /HPF11/26/2024 8:52 PM [facility] ([facility])Squamous Epithelial, UrineNone SeenNone Seen, Occasional, Few /LPF 11/26/2024 8:52 PM [facility] ([facility])Mucus, UrineOccasionalNone Seen, Occasional, Few /LP11/26/2024 8:52 PM [facility] ([facility]) Specimen (Source)Anatomical Location / LateralityCollection Method / Volume Collection TimeReceived TimeUrineUrine specimen obtained by clean catch procedure / UnknownNon-blood Collection / Cdugkkg5511/26/2024 8:27 PM EDT 11/26/2024 8:33 PM EDT Narrative Authorizing ProviderResult TypeResult StatusDustin Jean-Paul ANNIKA URINE ORDERABLES Final ResultPerforming OrganizationAddressCity/State/ZIP CodePhone Number [facility] ([facility]) [address] [place] [address] * (ABNORMAL) Urinalysis with reflex culture (11/26/2024 8:27 PM EDT)Component ValueRef RangeTest MethodAnalysis TimePerformed AtPathologist SignatureColor, UrineDark-Yellow(A)Colorless, Yellow, Light-Sktkyr2011/26/2024 8:52 PM [facility] ([facility])Clarity, VruhmCronaJcanv45/12/2025 8:52 PM [facility] ([facility])pH, Urine7.05.0 - 8.0 pH11/26/2024 8:52 PM [facility] ([facility])Leukocytes, UrineTrace(A)Yloqbjxj35/12/2025 8:52 PM EDT [facility] ([facility])Nitrite, UrinePositive(A)Grqoegip77/12/2025 8:52 PM [facility] ([facility])Protein, UrineNegativeNegative mg/dL11/26/2024 8:52 PM [facility] ([facility])Glucose, UrineNormalNormal mg/dL 11/26/2024 8:52 PM [facility] ([facility])Bilirubin, UrineSmall(A) Wlcvoayy72/12/2025 8:52 PM [facility] ([facility])Specific [place], Urine1.0181.010 - 1.8669411/26/2024 8:52 PM [facility] ([facility]) Ketones, UrineNegativeNegative mg/dL11/26/2024 8:52 PM [facility] ([facility])Blood, QthzwWqqgfvumRbsidfpj18/12/2025 8:52 PM [facility] ([facility])Urobilinogen, Urine4.0(A)Normal mg/dL11/26/2024 8:52 PM [facility])Specimen (Source)Anatomical Location / Laterality Collection Method / VolumeCollection TimeReceived TimeUrineUrine specimen obtained by clean catch procedure / UnknownNon-blood Collection / Unknown 11/26/2024 8:27 PM EDT1 8:33 PM EDT Narrative Authorizing ProviderResult TypeResult StatusDustin Jean-Paulladi ROBLERO URINE ORDERABLES Final ResultPerforming OrganizationAddressCity/State/ZIP CodePhone Number [facility] ([facility]) [address] [place] [address] * Serum Qualitative (11/26/2024 8:27 PM EDT)ComponentValueRef Range Test MethodAnalysis TimePerformed AtPathologist SignaturehCG, SerumNegative 11/26/2024 8:51 PM [facility] ([facility])Specimen (Source)Anatomical Location / LateralityCollection Method / VolumeCollection TimeReceived Time BloodVenous blood specimen / UnknownExisting Catheter / Ietbqin5611/26/2024 8:27 PM EDT1 8:33 PM EDT Narrative Authorizing ProviderResult TypeResult StatusDustin Jean-Paulladi ROBLERO BLOOD ORDERABLES Final ResultPerforming OrganizationAddressCity/State/ZIP CodePhone Number [facility]) [address] [place] [phone] * XR chest 1 view (11/26/2024 8:17 [...] GRACE MD. Authorizing ProviderResult TypeResult StatusDustin Jean-Paul MDIMG XR PROCEDURESFinal Result * ECG 12 lead (11/26/2024 8:13 PM EDT) Only the most recent of14 resultswithin the time period is included. ComponentValueRef RangeTest MethodAnalysis TimePerformed AtPathologist Signature Ventricular Evni49GRFAT MUSEAtrial Lgvf21QMIMI MUSEPR Lmfzuwjk360ekTE MUSEQRS JYLRHHOT08bvZA MUSEQT Bjqqqmtf742fiMQ MUSEQTC CALCULATION(BAZETT)470msGE MUSEP Nmet75fhfwejdCH MUSER-Wxfo09qfigzzmZX MUSET Wave Lysx00cxonmbfZF MUSESpecimen (Source)Anatomical Location / LateralityCollection Method / [...] 8:15:28 PM Authorizing ProviderResult TypeResult StatusDustin Jean-Paul JORGEG ORDERABLESFinal ResultPerforming OrganizationAddressCity/State/ZIP CodePhone Number [facility] * HS Troponin I (11/26/2024 8:05 PM EDT) Only the most recent of21 resultswithin the time period is included. ComponentValueRef RangeTest MethodAnalysis TimePerformed AtPathologist Signature High Sensitivity Troponin I<2<15 ng/L1 8:42 PM [facility] ([facility])Specimen (Source)Anatomical Location / LateralityCollection Method / VolumeCollection TimeReceived TimeBloodVenous blood specimen / UnknownExisting Catheter / Opwmckx1711/26/2024 8:05 PM EDT1 8:13 PM EDT Narrative Authorizing ProviderResult TypeResult StatusDustin Jean-Paul ANNIKA BLOOD ORDERABLES Final ResultPerforming OrganizationAddressCity/State/ZIP CodePhone Number [facility] ([facility]) [address] [place] [address] * (ABNORMAL) CBC auto differential (11/26/2024 8:05 PM EDT) Only the most recent of4 resultswithin the time period is included. ComponentValueRef RangeTest MethodAnalysis TimePerformed AtPathologist Signature Auto WBC5.234.00 - 10.60 10*3/uL11/26/2024 8:18 PM [facility] ([facility]) RBC3.37(L)3.80 - 5.00 10*6/uL11/26/2024 8:18 PM [facility] ([facility]) Hemoglobin9.9(L)12.0 - 15.0 g/dL11/26/2024 8:18 PM [facility] ([facility]) Njckvshoxu66.9(L)36.0 - 45.0 %11/26/2024 8:18 PM [facility] ([facility]) MCV88.782.0 - 98.0 fL11/26/2024 8:18 PM [facility] ([facility])MCH29.427.0 - 33.0 pg11/26/2024 8:18 PM [facility] ([facility])MCHC33.132.0 - 35.0 g/dL11/26/2024 8:18 PM [facility] ([facility])RDW14.011.5 - 15.0 % 11/26/2024 8:18 PM [facility] ([facility])Neutrophils %44.540.0 - 72.0 % 11/26/2024 8:18 PM [facility] ([facility])Lymphocytes %40.520.0 - 45.0 % 11/26/2024 8:18 PM [facility] ([facility])Monocytes %10.95.0 - 12.0 % 11/26/2024 8:18 PM [facility] ([facility])Eosinophils %3.10.0 - 6.0 % 11/26/2024 8:18 PM [facility] ([facility])Basophils %0.80.0 - 1.0 % 11/26/2024 8:18 PM [facility] ([facility])Neutrophils Absolute2.331.60 - 7.60 10*3/uL11/26/2024 8:18 PM [facility] ([facility])Lymphocytes Absolute 2.121.20 - 4.00 10*3/uL11/26/2024 8:18 PM [facility] ([facility])Monocytes Absolute0.570.10 - 1.00 10*3/uL11/26/2024 8:18 PM [facility] ([facility]) Eosinophils Absolute0.160.00 - 0.50 10*3/uL11/26/2024 8:18 PM [facility] ([facility])Basophils Absolute0.040.00 - 0.20 10*3/uL11/26/2024 8:18 PM [facility] ([facility])Jfadttxmo664955 - 400 10*3/uL11/26/2024 8:18 PM [facility] ([facility])nRBC %0.00 %11/26/2024 8:18 PM [facility] ([facility])Immature Granulocytes %0.20.0 - 1.0 %11/26/2024 8:18 PM [facility] ([facility])Immature Granulocytes Absolute0.010.00 - 0.20 10*3/uL11/26/2024 8:18 PM [facility] ([facility])Specimen (Source)Anatomical Location / LateralityCollection Method / VolumeCollection TimeReceived TimeBloodVenous blood specimen / UnknownExisting Catheter / Njgilvp8811/26/2024 8:05 PM EDT 11/26/2024 8:13 PM EDT Narrative Authorizing ProviderResult TypeResult StatusDustin Jean-Paul [facility] BLOOD ORDERABLES Final ResultPerforming OrganizationAddressCity/State/ZIP CodePhone Number [facility]) [address], [place] [phone] * Lipase (11/26/2024 8:05 PM EDT)ComponentValueRef RangeTest MethodAnalysis Time Performed AtPathologist AzsgmlyvwDdjvcp2979 - 82 U/L1 8:36 PM [facility])Specimen (Source)Anatomical Location / Laterality Collection Method / VolumeCollection TimeReceived TimeBloodVenous blood specimen / UnknownExisting Catheter / Bmgrgil1311/26/2024 8:05 PM EDT1 8:13 PM EDT Narrative Authorizing ProviderResult TypeResult StatusDustin Jean-Paul [facility] BLOOD ORDERABLES Final ResultPerforming OrganizationAddressCity/State/ZIP CodePhone Number [facility]) [address] [place] [address] * (ABNORMAL) Comprehensive metabolic panel (11/26/2024 8:05 PM EDT) Only the most recent of2 resultswithin the time period is included. ComponentValueRef RangeTest MethodAnalysis TimePerformed AtPathologist Signature Idurgw787968 - 145 mmol/L1 8:36 PM [facility]) Potassium3.73.5 - 5.1 mmol/L1 8:36 PM [facility] ([facility]) Jqzwlzje470(H)98 - 107 mmol/L1 8:36 PM [facility] ([facility])CO2 2221 - 31 mmol/L1 8:36 PM [facility] ([facility])Anion Gap97 - 20 mmol/L1 8:36 PM [facility])BUN97 - 25 mg/dL11/26/2024 8:36 PM [facility] ([facility])Creatinine0.59(L)0.60 - 1.20 mg/dL 11/26/2024 8:36 PM [facility] ([facility])BUN/Creatinine Ratio15.3 11/26/2024 8:36 PM [facility])Tlfhrof7492 - 100 mg/dL 11/26/2024 8:36 PM [facility])Calcium7.4(L)8.6 - 10.3 mg/dL 11/26/2024 8:36 PM [facility])BTJ2589 - 39 U/L1 8:36 PM [facility])ALT (SGPT)127 - 52 U/L1 8:36 PM [facility] ([facility])Alkaline Hbufoenblnr0711 - 104 U/L1 8:36 PM [facility] ([facility])Total Protein5.6(L)6.0 - 8.3 g/dL11/26/2024 8:36 PM [facility])Albumin3.63.5 - 5.7 g/dL11/26/2024 8:36 PM [facility])Total Bilirubin0.2(L)0.3 - 1.0 mg/dL11/26/2024 8:36 PM [facility] ([facility])aXHL559.5>60.0 mL/min/1.73m* 8:36 PM [facility] ([facility])Comment:[facility]???s [...] BLOOD ORDERABLES Final ResultPerforming OrganizationAddressCity/State/ZIP CodePhone Number [facility] ([facility]) [address] [place] [address] * (ABNORMAL) CBC (11/17/2024 5:17 AM EDT) Only the most recent of15 resultswithin the time period is included. ComponentValueRef RangeTest MethodAnalysis TimePerformed AtPathologist Signature Auto WBC2.92(L)4.00 - 10.60 10*3/uL11/17/2024 5:40 AM [facility])RBC2.88(L)3.80 - 5.00 10*6/uL11/17/2024 5:40 AM [facility] ([facility])Hemoglobin8.5(L)12.0 - 15.0 g/dL11/17/2024 5:40 AM [facility] ([facility])Aigprdweli78.9(L)36.0 - 45.0 %11/17/2024 5:40 AM [facility] ([facility])MCV89.982.0 - 98.0 fL11/17/2024 5:40 AM [facility] ([facility])MCH 29.527.0 - 33.0 pg11/17/2024 5:40 AM [facility] ([facility])MCHC32.832.0 - 35.0 g/dL11/17/2024 5:40 AM [facility])RDW14.611.5 - 15.0 % 11/17/2024 5:40 AM [facility])Akfbgwcao031711 - 400 10*3/uL 11/17/2024 5:40 AM [facility] ([facility])Specimen (Source)Anatomical Location / LateralityCollection Method / VolumeCollection TimeReceived TimeBlood Venous blood specimen / UnknownExisting Catheter / Vogimru2711/17/2024 5:17 AM EDT 11/17/2024 5:25 AM EDT Narrative Authorizing ProviderResult TypeResult StatusOmazita ROBLERO BLOOD ORDERABLES Final ResultPerforming OrganizationAddressCity/State/ZIP CodePhone Number [facility]) [address] [place] [address] * Magnesium (11/17/2024 5:17 AM EDT) Only the most recent of10 resultswithin the time period is included. ComponentValueRef RangeTest MethodAnalysis TimePerformed AtPathologist Signature Magnesium1.91.9 - 2.7 mg/dL11/17/2024 7:00 AM [facility] ([facility]) Specimen (Source)Anatomical Location / LateralityCollection Method / Volume Collection TimeReceived TimeBloodVenous blood specimen / UnknownExisting Catheter / Dkvhcni8511/17/2024 5:17 AM EDT1 5:24 AM EDT Narrative Authorizing ProviderResult TypeResult StatusOmar Carmela ROBLERO BLOOD ORDERABLES Final ResultPerforming OrganizationAddressty/State/ZIP CodePhone Number [facility]) [address] [place] [address] * (ABNORMAL) Hepatic function panel (11/17/2024 5:17 AM EDT) Only the most recent of2 resultswithin the time period is included. ComponentValueRef RangeTest MethodAnalysis TimePerformed AtPathologist Signature Total Bilirubin0.30.3 - 1.0 mg/dL11/17/2024 8:50 AM [facility] ([facility])Bilirubin, Direct0.00 - 0.2 mg/dL11/17/2024 8:50 AM [facility] ([facility])Alkaline Xolqzzuqthj5578 - 104 U/L1 8:50 AM [facility])GTA2797 - 39 U/L1 8:50 AM [facility] ([facility])ALT (SGPT)117 - 52 U/L1 8:50 AM [facility] ([facility])Total Protein 5.2(L)6.0 - 8.3 g/dL11/17/2024 8:50 AM [facility] ([facility])Albumin3.2 (L)3.5 - 5.7 g/dL11/17/2024 8:50 AM [facility] ([facility])Specimen (Source)Anatomical Location / LateralityCollection Method / VolumeCollection TimeReceived TimeBloodVenous blood specimen / UnknownExisting Catheter / Unknown 11/17/2024 5:17 AM EDT1 5:24 AM EDT Narrative Authorizing ProviderResult TypeResult StatusArabella Patel [facility] BLOOD ORDERABLESFinal ResultPerforming OrganizationAddressCity/State/ZIP CodePhone Number [facility] ([facility]) [address] [place] [address] * (ABNORMAL) Basic metabolic panel (11/17/2024 5:17 AM EDT) Only the most recent of16 resultswithin the time period is included. ComponentValueRef RangeTest MethodAnalysis TimePerformed AtPathologist Signature [id number] - 145 mmol/L1 7:00 AM [facility] ([facility]) Potassium3.63.5 - 5.1 mmol/L1 7:00 AM [facility] ([facility]) Zgsgextw733(H)98 - 107 mmol/L1 7:00 AM [facility] ([facility])CO2 2521 - 31 mmol/L1 7:00 AM [facility] ([facility])KFH358 - 25 mg/dL11/17/2024 7:00 AM [facility] ([facility])Creatinine0.720.60 - 1.20 mg/dL11/17/2024 7:00 AM [facility] ([facility])Svmduvl6011 - 100 mg/dL 11/17/2024 7:00 AM [facility] ([facility])Calcium8.0(L)8.6 - 10.3 mg/dL 11/17/2024 7:00 AM [facility] ([facility])Anion Eee631 - 20 mmol/L 11/17/2024 7:00 AM [facility] ([facility])eBPO253.8>60.0 mL/min/1.73m*2 11/17/2024 7:00 AM [facility] ([facility])Comment:[facility]???s [...] group of individuals. BUN/Creatinine Ratio13.91 7:00 AM [facility] ([facility])Specimen (Source)Anatomical Location / LateralityCollection Method / VolumeCollection TimeReceived TimeBloodVenous blood specimen / UnknownExisting Catheter / Unknown 11/17/2024 5:17 AM EDT1 5:24 AM EDT Narrative Authorizing ProviderResult TypeResult StatusOmar Carmela [facility] BLOOD ORDERABLES Final ResultPerforming OrganizationAddressCity/State/ZIP CodePhone Number [facility] ([facility]) [address] [place] [address] * MR abdomen wo contrast MRCP (11/16/2024 [...] signed: Willis Simons MD. Authorizing ProviderResult TypeResult StatusOmar Carmela JOHNSONIMJarrod MRI PROCEDURES Final Result * POCT glucose meter (11/13/2024 11:08 AM EDT) Only the most recent of51 resultswithin the time period is included. ComponentValueRef RangeTest MethodAnalysis TimePerformed AtPathologist Signature Glucose XLD5990 - 105 mg/dL11/13/2024 11:26 AM [facility] Comment:[id number] (Source)Anatomical Location / LateralityCollection Method / VolumeCollection TimeReceived TimeBloodCapillary blood specimen / Zegzamu1811/13/2024 11:08 AM EDT11/13/2024 11:26 AM EDT Narrative [facility] ([facility]) - 11/13/2024 11:26 AM EDT Waived Testing in the ED is performed under the ED CLIA certificate #[id number]. Authorizing ProviderResult TypeResult StatusQuinnu Karlee [facility] BLOOD ORDERABLESFinal ResultPerforming OrganizationAddressCity/State/ZIP CodePhone Number [facility] ([facility]) [address] [place] [address] * CTA Chest W IV Contrast (11/11/2024 [...] Rebecca Solano. Authorizing ProviderResult TypeResult StatusMarky Tavares MDIMJarrod CT PROCEDURES Final Result * (ABNORMAL) C-reactive protein (11/11/2024 3:29 PM EDT)ComponentValueRef Range Test MethodAnalysis TimePerformed AtPathologist JxijkjqujVTH41.4(H)<=5.0 mg/L 11/13/2024 10:24 AM [facility] ([facility])Comment:Testing performed using a new methodology, turbidimetry. Normal ranges have been updated. Old normal range was <8 mg/L.Specimen (Source)Anatomical Location / Laterality Collection Method / VolumeCollection TimeReceived TimeBloodVenous blood specimen / UnknownExisting Catheter / Qjuihvt7611/11/2024 3:29 PM EDT11/11/2024 3:42 PM EDT Narrative Authorizing ProviderResult TypeResult StatusJonelle Harrison MDSA[facility] BLOOD ORDERABLESFinal ResultPerforming OrganizationAddressCity/State/ZIP CodePhone Number [facility]) [address] [place] [address] * (ABNORMAL) Sedimentation rate (11/11/2024 6:39 AM EDT)ComponentValueRef Range Test MethodAnalysis TimePerformed AtPathologist SignatureSed Rate20(H)<20 mm/hr11/11/2024 12:20 PM [facility] ([facility])Specimen (Source) Anatomical Location / LateralityCollection Method / VolumeCollection Time Received TimeBloodVenous blood specimen / UnknownExisting Catheter / Unknown 11/11/2024 6:39 AM EDT11/11/2024 6:43 AM EDT Narrative Authorizing ProviderResult TypeResult StatusJonelle Harrison MDSA[facility] BLOOD ORDERABLESFinal ResultPerforming OrganizationAddressCity/State/ZIP CodePhone Number [facility]) [address] [place] [address] * LEXISCAN STRESS MYOCARDIAL PERFUSION IMAGING (11/10/2024 11:23 AM EDT) Anatomical RegionLateralityModalityOtherSpecimen (Source)Anatomical Location / LateralityCollection Method / VolumeCollection TimeReceived Time11/10/2024 11:14 AM EDT Addenda Addendum by Mitul Moya MD on 11/10/2024 4:35 PM EDT 1 1 [facility] Heart Station [address] [place] [address] [phone] (fax) Lexiscan Stress Myocardial Perfusion Imaging- [facility] Name: JUAN GARCIA Study Date: 11/10/2024 11:14 AM B/P: / HR: Date of : 1990 Location: [facility] Height: 65 in. Age: 34 year(s) [...] Lexiscan Exercise Time: 03:02 Device: Treadmill HR [place] Used: 21.00 % HR Recovery: 2 bpm Frequent VE: 1 VE/min Resolution: Persisted Max HR: 98 bpm Target HR: 157 bpm Achieved: No Resting HR: 68 bpm Max Predicted HR: 185 bpm Achv. of Max Predicted: 52 % BP Max: 105/71 BP at Rest: 105/71 Max RPP: 07170 mmHg*bpm Max ST Lead: III Max ST Phase: Infusion Stage No. in Phase: [address] Stage: INFUS2:[address] Amplitude: -0.[address] [place]: -0.670 mV/s Max ST Time in Phase: [...] 1.00 mets 67 bpm 105/71 0.250 mm LBGMG1WUT 00:30 1.00 mets 90 bpm 102/70 0.400 [...] 4 - Aneurysmal Procedure Staff Reading Group: [facility] Referring Physician: BRITT ALAS Stress Workforce Manager: [place] ??Golf Club Head Inspector And Adjuster: Lauren Sanchez ??Ordering Physician: BACILIO PEÑA ??Advanced Practitioner: CRISTINA Gibson ??Nurse: Evelyne Abrams ?? Narrative 11/10/2024 4:35 PM EDT 1 1 [facility] Heart Station [address] [place] [address] [phone] (fax) Lexiscan Stress Myocardial Perfusion Imaging- [facility] Name: JUAN GARCIA Study Date: 11/10/2024 11:14 AM B/P: / HR: Date of : 1990 Location: [facility] Height: 65 in. Age: 34 year(s) [...] Lexiscan Exercise Time: 03:02 Device: Treadmill HR [place] Used: 21.00 % HR Recovery: 2 bpm Frequent VE: 1 VE/min Resolution: Persisted Max HR: 98 bpm Target HR: 157 bpm ?? Achieved: No Resting HR: 68 bpm Max Predicted HR: 185 bpm Achv. of Max Predicted: 52 % BP Max: 105/71 BP at Rest: 105/71 Max RPP: 35843 mmHg*bpm Max ST Lead: III Max ST Phase: Infusion Stage No. in Phase: [address] Stage: INFUS2:[address] Amplitude: -0.[address] [place]: -0.670 mV/s Max ST Time in Phase: [...] 1.00 mets 67 bpm 105/71 0.250 mm [id number] 00:30 1.00 mets 90 bpm 102/70 0.400 [...] 4 - Aneurysmal Procedure Staff Reading Group: [facility] Referring Physician: BRITT ALAS ??Stress Workforce Manager: [place] ??Golf [employer] Head Inspector And Adjuster: Lauren Sanchez Ordering Physician: BACILIO PEÑA ??Advanced Practitioner: CRISTINA Gibson ??Nurse: Evelyne Abrams ?? Resting Perfusion Procedure Note Mitul Moya MD - 11/10/2024 1 1 [facility] Heart Station [address] [place] [address] [phone] (fax) Lexiscan Stress Myocardial Perfusion Imaging- [facility] Name: JUAN GARCIA Study Date: 11/10/2024 11:14 AM B/P: / HR: Date of : 1990 Location: [facility] Height: 65 in. Age: 34 year(s) [...] Lexiscan Exercise Time: 03:02 Device: Treadmill HR [place] Used: 21.00 % HR Recovery: 2 bpm Frequent VE: 1 VE/min Resolution: Persisted Max HR: 98 bpm Target HR: 157 bpm Achieved: No Resting HR: 68 bpm Max Predicted HR: 185 bpm Achv. of Max Predicted: 52 % BP Max: 105/71 BP at Rest: 105/71 Max RPP: 43199 mmHg*bpm Max ST Lead: III Max ST Phase: Infusion Stage No. in Phase: [address] Stage: INFUS2:[address] Amplitude: -0.[address] [place]: -0.670 mV/s Max ST Time in Phase: [...] 1.00 mets 67 bpm 105/71 0.250 mm [id number] 00:30 1.00 mets 90 bpm 102/70 0.400 [...] 4 - Aneurysmal Procedure Staff Reading Group: [facility] Referring Physician: BRITT ALAS Stress Workforce Manager: [place] [employer] Head Inspector And Adjuster: Lauren Sanchez Ordering Physician: BACILIO PEÑA Advanced Practitioner: CRISTINA Gibson Nurse: Evelyne Abrams Resting Perfusion Authorizing ProviderResult TypeResult StatusAbhisliss Peña MDCV STRESS PROCEDURES Edited Result - Final * Phosphorus (11/07/2024 4:50 AM EDT) Only the most recent of7 resultswithin the time period is included. ComponentValueRef RangeTest MethodAnalysis TimePerformed AtPathologist Signature Phosphorus4.72.5 - 5.0 mg/dL11/07/2024 5:52 AM [facility] Specimen (Source)Anatomical Location / LateralityCollection Method / Volume Collection TimeReceived TimeBloodVenous blood specimen / UnknownExisting Catheter / Yggsajg7311/07/2024 4:50 AM EDT11/07/2024 5:24 AM EDT Narrative Authorizing ProviderResult TypeResult StatusRosa Willoughby PA-CLAB BLOOD ORDERABLESFinal ResultPerforming OrganizationAddressCity/State/ZIP CodePhone Number [facility] ([facility]) [address] [place] [address] * Calcium, ionized (11/07/2024 4:50 AM EDT) Only the most recent of5 resultswithin the time period is included. ComponentValueRef RangeTest MethodAnalysis TimePerformed AtPathologist Signature Calcium, Ion1.161.15 - 1.33 mmol/L11/07/2024 5:43 AM [facility] Specimen (Source)Anatomical Location / LateralityCollection Method / Volume Collection TimeReceived TimeBloodVenous blood specimen / UnknownExisting Catheter / Wpxklaj4111/07/2024 4:50 AM EDT11/07/2024 5:38 AM EDT Narrative Authorizing ProviderResult TypeResult StatusEduarda Bravo PA-CLAB BLOOD ORDERABLES Final ResultPerforming OrganizationAddressCity/State/ZIP CodePhone Number [facility] RESPIRATORY THERAPY [address] [place] [address], [place] * Vasc Us Lower Extremity Pseudoaneurysm Duplex Right (11/06/2024 8:24 AM EDT) Anatomical RegionLateralityModalityLower ExtremitiesUltrasoundSpecimen (Source)Anatomical Location / LateralityCollection Method / VolumeCollection TimeReceived Time09/ 8:20 AM EDT Impressions 11/10/2024 10:17 AM [...] arterial segments and vein Authorizing ProviderResult TypeResult Akin CANELA CV VASCULAR PROCEDURESFinal Result * (ABNORMAL) Hemoglobin and hematocrit, blood (11/05/2024 9:01 AM EDT) Only the most recent of6 resultswithin the time period is included. ComponentValueRef RangeTest MethodAnalysis TimePerformed AtPathologist Signature Hemoglobin9.4(L)12.0 - 15.0 g/dL11/05/2024 9:24 AM [facility] ([place]) Mbydfplaff46.5(L)36.0 - 45.0 %11/05/2024 9:24 AM [facility] ([facility]) Specimen (Source)Anatomical Location / LateralityCollection Method / Volume Collection TimeReceived TimeBloodVenous blood specimen / UnknownExisting Catheter / Hvhyrtt7311/05/2024 9:01 AM EDT11/05/2024 9:09 AM EDT Narrative Authorizing ProviderResult TypeResult Fab ROBLERO BLOOD ORDERABLESFinal ResultPerforming OrganizationAddressCity/State/ZIP CodePhone Number [facility] ([facility]) [address] [place] [address] * Transfuse RBC (11/04/2024 4:57 PM EDT) Only the most recent of3 resultswithin the time period is included. Narrative Authorizing ProviderResult TypeResult Fab NOVAKOOD TRANSFUSION ORDERABLESFinal Result * CTA Abdomen Pelvis [...] No free fluid. The celiac, SMA and KEEYL are patent Procedure Note Raegan Quinn MD [...] Electronically signed: Raegan Quinn. Authorizing ProviderResult TypeResult StatusKellilyladi CANELA CT PROCEDURES Final Result * HEPTEM C (11/03/2024 1:58 AM EDT)ComponentValueRef RangeTest MethodAnalysis TimePerformed AtPathologist SignatureHEPTEM C CLOTTING [id number] - 215 s 11/03/2024 1:58 AM EDTUT RESPIRATORY THERAPYHEPTEM C AMPLITUDE 5 XFN4053 - 51 mm11/03/2024 1:58 AM [facility] RESPIRATORY THERAPYHEPTEM C AMPLITUDE 10 MIN56 44 - 61 mm11/03/2024 1:58 AM [facility] RESPIRATORY THERAPYHEPTEM C AMPLITUDE 20 PNG8696 - 67 mm11/03/2024 1:58 AM [facility] RESPIRATORY THERAPYHEPTEM C MAXIMUM CLOT JWKUMSAR1136 - 69 mm11/03/2024 1:58 AM [facility] RESPIRATORY THERAPY Specimen (Source)Anatomical Location / LateralityCollection Method / Volume Collection TimeReceived UqhnAmuwz23/19/2025 1:58 AM EDT11/03/2024 1:58 AM EDT Narrative Authorizing ProviderResult TypeResult StatusKy Barbour [facility] BLOOD ORDERABLESFinal ResultPerforming OrganizationAddressCity/State/ZIP CodePhone Number [facility] RESPIRATORY THERAPY [address] [place] [address], [place] * FIBTEM C (11/03/2024 1:58 AM EDT)ComponentValueRef RangeTest MethodAnalysis TimePerformed AtPathologist SignatureFIBTEM C AMPLITUDE 5 ZIH863 - 16 mm 11/03/2024 1:58 AM [facility] RESPIRATORY THERAPYFIBTEM C AMPLITUDE 10 LTC639 - 17 mm11/03/2024 1:58 AM [facility] RESPIRATORY THERAPYFIBTEM C AMPLITUDE 20 MIN14 6 - 18 mm11/03/2024 1:58 AM [facility] RESPIRATORY THERAPYFIBTEM C MAXIMUM CLOT GSBRHPGR549 - 19 mm11/03/2024 1:58 AM [facility] RESPIRATORY THERAPYSpecimen (Source)Anatomical Location / LateralityCollection Method / VolumeCollection TimeReceived UlzvUiyca72/19/2025 1:58 AM EDT11/03/2024 1:58 AM EDT Narrative Authorizing ProviderResult TypeResult StatusKy Barbour [facility] BLOOD ORDERABLESFinal ResultPerforming OrganizationAddressCity/State/ZIP CodePhone Number [facility] RESPIRATORY THERAPY [address] [place] [address], [place] * (ABNORMAL) EXTEM C (11/03/2024 1:58 AM EDT)ComponentValueRef RangeTest Method Analysis TimePerformed AtPathologist SignatureEXTEM C CLOTTING NNPE6384 - 73 s 11/03/2024 1:58 AM [facility] RESPIRATORY THERAPYEXTEM C AMPLITUDE 5 HUJ8442 - 52 mm11/03/2024 1:58 AM [facility] RESPIRATORY THERAPYEXTEM C AMPLITUDE 10 AUC8693 - 62 mm11/03/2024 1:58 AM EDTPRES[facility] RESPIRATORY THERAPYEXTEM C AMPLITUDE 20 MIN67 54 - 69 mm11/03/2024 1:58 AM EDTPRESBY[facility] RESPIRATORY THERAPYEXTEM C MAXIMUM CLOT CQKIYMUH7256 - 72 mm11/03/2024 1:58 AM [facility] RESPIRATORY THERAPYEXTEM C LYSIS INDEX 60 FDI2573 - 100 %11/03/2024 1:58 AM [facility]PRES[facility] EXTEM C MAXIMUM LYSIS10(H)0 - 6 %11/03/2024 1:58 AM [facility] RESPIRATORY THERAPYComment:[place]^Preliminary ResultSpecimen (Source)Anatomical Location / LateralityCollection Method / VolumeCollection TimeReceived TimeBlood 11/03/2024 1:58 AM EDT11/03/2024 1:58 AM EDT Narrative Authorizing ProviderResult TypeResult StatusCaleb Mary Jane Barbour MDLAB BLOOD ORDERABLESFinal ResultPerforming OrganizationAddressCity/State/ZIP CodePhone Number [facility] RESPIRATORY THERAPY [address] [place] [address], * (ABNORMAL) INTEM C (11/03/2024 1:58 AM EDT)ComponentValueRef RangeTest Method Analysis TimePerformed AtPathologist SignatureINTEM C CLOTTING [id number] - 205 s011/03/2024 1:58 AM [facility] RESPIRATORY THERAPYINTEM C AMPLITUDE 5 FEG1165 - 54 mm11/03/2024 1:58 AM EDTPRESBY[facility] RESPIRATORY THERAPYINTEM C AMPLITUDE 10 MIN 5746 - 63 mm11/03/2024 1:58 AM [facility] RESPIRATORY THERAPYINTEM C AMPLITUDE 20 DEP6314 - 68 mm11/03/2024 1:58 AM EDTPRESBYTERIAN ESP[facility]ÑOL[facility] RESPIRATORY THERAPYINTEM C MAXIMUM CLOT BHSSLLBS0993 - 70 mm11/03/2024 1:58 AM [facility] RESPIRATORY THERAPYINTEM C LYSIS INDEX 60 ZQG8167 - 100 %11/03/2024 1:58 AM [facility] RESPIRATORY THERAPY INTEM C MAXIMUM LYSIS12(H)0 - 7 %11/03/2024 1:58 AM [facility] RESPIRATORY THERAPYComment:[place]^Preliminary ResultSpecimen (Source)Anatomical Location / LateralityCollection Method / VolumeCollection TimeReceived TimeBlood 11/03/2024 1:58 AM EDT11/03/2024 1:58 AM EDT Narrative Authorizing ProviderResult TypeResult StatusKy Barbour MDLAB BLOOD ORDERABLESFinal ResultPerforming OrganizationAddressCity/State/ZIP CodePhone Number [facility] RESPIRATORY THERAPY [address] [place] [address], * (ABNORMAL) Protime-INR (11/03/2024 12:07 AM EDT) Only the most recent of2 resultswithin the time period is included. ComponentValueRef RangeTest MethodAnalysis TimePerformed AtPathologist Signature Ugfvgvp30.9(H)12.3 - 14.8 Mvhznih4411/03/2024 12:53 AM [facility] ([place])INR1.17(H)0.90 - 1.10011/03/2024 12:53 AM [facility] ([place]) Comment: ACCCP RECOMMENDED INR FOR WARFARIN THERAPY CONDITION ?INR [...] TimeBloodVenous blood specimen / UnknownExisting Catheter / Cjfssqa9911/03/2024 12:07 AM EDT11/03/2024 12:27 AM EDT Narrative Authorizing ProviderResult TypeResult StatusDavijose ROBLERO BLOOD ORDERABLES Final ResultPerforming OrganizationAddressCity/State/ZIP CodePhone Number [facility]) [address] [place] [address] * Fibrinogen (11/03/2024 12:07 AM EDT)ComponentValueRef RangeTest MethodAnalysis TimePerformed AtPathologist RrblchcjqDuopukzyyb465624 - 425 mg/dL11/03/2024 12:53 AM [facility]TGIL[facility])Specimen (Source)Anatomical Location / LateralityCollection Method / VolumeCollection TimeReceived TimeBloodVenous blood specimen / UnknownExisting Catheter / Rizoqzo6311/03/2024 12:07 AM EDT 11/03/2024 12:27 AM EDT Narrative Authorizing ProviderResult TypeResult StatusDavijose ROBLERO BLOOD ORDERABLES Final ResultPerforming OrganizationAddressCity/State/ZIP CodePhone Number [facility]) [address] [place] [address] * [place] AN ELECTIVE ENDOTRACHEAL AIRWAY (11/02/2024 8:56 PM EDT) Tarik Dave CAA - 11/02/2024 8:56 PM EDT [place] Nair 11/02/2024 9:06 PM Airway Date/Time: 11/02/2024 8:56 PM Reason: elective Airway not difficult General Information and Staff Patient location during procedure: [place] Anesthesiologist: David Reyes MD Resident/COLLAR SEWER/CAA: [place] Nair Performed: resident/COLLAR SEWER/[place] Patient Condition Indications for airway management: anesthesia [...] other approaches attempted: 0 Authorizing ProviderResult TypeResult StatusDavid Reyes MDANESTHESIA ORDERABLESFinal Result * Prepare RBC: 1 Units (11/02/2024 8:05 PM EDT) Only the most recent of2 resultswithin the time period is included. ComponentValueRef RangeTest MethodAnalysis TimePerformed AtPathologist Signature PRODUCT [id number] BLOOD BANKUnit [id number] BLOOD BANKUnit [facility] BLOOD BANKUnit RhPOSPRESBYTERIAN ESPAÑOLA [facility]OSPITAL BLOOD BANKCrossmatch InterpretationCOMSANTA ANA HEALTH [facility]ENTER BLOOD BANKDispense StatusTRPRESBYTERIAN ESPAÑOLA HOSPITAL BLOOD BANKBlood Expiration [id number] BLOOD BANKProduct Blood Wjdj4949ANOU BLOOD BANKUnit Cxkpbp661GPFZOL BLOOD BANK Specimen (Source)Anatomical Location / LateralityCollection Method / Volume Collection TimeReceived FoleSgjko88/18/2025 8:05 PM EDT Narrative Authorizing ProviderResult TypeResult StatusTomasa Disla MDBLOOD BANK PRODUCT ORDERABLESFinal ResultPerforming OrganizationAddressCity/State/ZIP Code Phone Number [facility] BLOOD BANK * Type and screen (11/02/2024 8:02 PM EDT)ComponentValueRef RangeTest Method Analysis TimePerformed AtPathologist SignatureABO TyzbqytxD19/18/2025 8:42 PM [facility] BLOOD BANKRh OhifNYZ8111/02/2024 8:42 PM EDUN[facility] BLOOD BANKAb ScrnNEG 11/02/2024 8:42 PM [facility] BLOOD BANKSpecimen (Source)Anatomical Location / LateralityCollection Method / VolumeCollection TimeReceived TimeBloodVenous blood specimen / UnknownExisting Catheter / Grbpfee4711/02/2024 8:02 PM EDT 11/02/2024 8:02 PM EDT Narrative Authorizing ProviderResult TypeResult StatusChrisadalberto Collins [facility] BLOOD BANK TEST ORDERABLESFinal ResultPerforming OrganizationAddressCity/State/ZIP Code Phone Number [facility] BLOOD BANK * Red Top (11/02/2024 8:00 PM EDT)ComponentValueRef RangeTest MethodAnalysis TimePerformed AtPathologist SignatureExtra TubeHold for add-ons.11/02/2024 10:02 PM [facility] ([facility])Comment:Auto resulted.Specimen (Source) Anatomical Location / LateralityCollection Method / VolumeCollection Time Received TimeBloodVenous blood specimen / Mudbfnw0011/02/2024 8:00 PM EDT 11/02/2024 8:19 PM EDT Narrative Authorizing ProviderResult TypeResult StatusKy Barbour [facility] BLOOD ORDERABLESFinal ResultPerforming OrganizationAddressCity/State/ZIP CodePhone Number [facility] ([facility]) [address] [place] [address] * (ABNORMAL) Activated clotting time (11/02/2024 4:43 PM EDT) Only the most recent of7 resultswithin the time period is included. ComponentValueRef RangeTest MethodAnalysis TimePerformed AtPathologist Signature Activated Clotting Urur931(H)82 - 152 s011/02/2024 5:54 PM [facility] ([facility])Specimen (Source)Anatomical Location / LateralityCollection Method / VolumeCollection TimeReceived TimeBloodVenous blood specimen / Giczauf2711/02/2024 4:43 PM EDT11/02/2024 5:54 PM EDT Narrative Authorizing ProviderResult TypeResult StatusCaleb T Km MDLAB POINT OF CARE TEST DOCKED DEVICE UNSOLICITED RESULTSFinal ResultPerforming OrganizationAddress City/State/ZIP CodePhone Number [facility] ([place]) [address] [place] [address] * (ABNORMAL) POCT activated clotting time manually resulted (11/02/2024 4:40 PM EDT) Only the most recent of2 resultswithin the time period is included. ComponentValueRef RangeTest MethodAnalysis TimePerformed AtPathologist Signature Activated Clotting Time OTV110(A)82 - 152 secSpecimen (Source)Anatomical Location / LateralityCollection Method / VolumeCollection TimeReceived TimeBlood Venous blood specimen / Uhamqvi4411/02/2024 4:40 PM EDT Narrative Authorizing ProviderResult TypeResult [...] infiltrated over the right femoral artery. ??A 6-Vincentian sheath was placed in right femoral artery. ?? Coronary angiography was performed with a JL4 and then repeated after IC nitroglycerin 50 mcg x 2. At this time, it was apparent that the LAD had a moderate stenosis and IVUS and iFR were performed. ??Heparin anticoagulation was used for this procedure. ACT was maintained at >250 seconds. A 6 Vincentian xb3 was engaged to the [place]. I then advanced a 0.014 ??guidewire to the distal left anterior descending. IVUS imaging was performed with a [employer] catheter after additional IC nitroglycerin and IV [...] artery [I25.42] Unstable angina Authorizing ProviderResult TypeResult StatusKarlosb Mary Jane Barbour [facility] CARDIAC CATH PROCEDURESFinal Result * Light Green Top (11/02/2024 6:15 AM EDT)ComponentValueRef RangeTest Method Analysis TimePerformed AtPathologist SignatureExtra TubeHold for add-ons. 11/02/2024 8:01 AM EDTPRES[facility] ([place])Comment:Auto resulted.Specimen (Source)Anatomical Location / LateralityCollection Method / VolumeCollection TimeReceived TimeBloodVenous blood specimen / UnknownExisting Catheter / Goeoahm2811/02/2024 6:15 AM EDT11/02/2024 6:38 AM EDT Narrative Authorizing ProviderResult TypeResult StatusKy ROBLERO BLOOD ORDERABLESFinal ResultPerforming OrganizationAddressCi/State/ZIP CodePhone Number [facility] ([facility]) [address] [place] [address] * (ABNORMAL) POCT activated clotting time docked device (11/01/2024 4:33 PM EDT) ComponentValueRef RangeTest MethodAnalysis TimePerformed AtPathologist SignatureActivated Clotting Time VGH285(A)82 - 152 [facility] ([facility])Specimen (Source)Anatomical Location / LateralityCollection Method / VolumeCollection TimeReceived TorrVhaly13/17/2025 4:33 PM EDT Narrative Authorizing ProviderResult TypeResult StatusKy ROBLERO POINT OF CARE TEST DOCKED DEVICE ORDERABLESFinal ResultPerforming OrganizationAddress City/State/ZIP CodePhone Number [facility] ([facility]) [address] [place] [address] * CORONARY ANGIOGRAPHY, ULTRASOUND - CORONARY (11/01/2024 [...] on TPN presents a direct admission from [facility] with chief complaint of chest pain. ?? [...] infiltrated over the right femoral artery. ??A 5-Vincentian Terumo sheath was placed in right femoral [...] was maintained at >250 seconds. A 5 Vincentian Cordis XB 3.0 guide was engaged to the left main. I decided to proceed with IVUS. ??I then advanced a Runthrough wire to the distal left anterior descending. Next, I advanced a Ecrebo IVUS catheter. ??IVUS imaging was performed and [...] caliber Study Details NSTEMI Authorizing ProviderResult TypeResult StatusKy Barbour [facility] CARDIAC CATH PROCEDURESFinal Result * (ABNORMAL) Anti-Xa (Heparin Level) (11/01/2024 6:04 AM EDT) Only the most recent of4 resultswithin the time period is included. ComponentValueRef RangeTest MethodAnalysis TimePerformed AtPathologist Signature Anti-Xa (Heparin)0.27(L)0.3 - 0.7 IU/mL11/01/2024 6:37 AM [facility] ([facility])Comment:Rivaroxaban and Apixaban will interfere with the anti Xa assay used to monitor UFH and LMWH.Specimen (Source)Anatomical Location / Laterality Collection Method / VolumeCollection TimeReceived TimeBloodBlood sample taken from central line / UnknownExisting Catheter / Abpwsrz7211/01/2024 6:04 AM EDT 11/01/2024 6:15 AM EDT Narrative Authorizing ProviderResult TypeResult StatusKy Barbour [facility] BLOOD ORDERABLESFinal ResultPerforming OrganizationAddressCity/State/ZIP CodePhone Number [facility] ([facility]) [address] [place] [address] * (ABNORMAL) Toxicology Screen, Urine (11/01/2024 2:12 AM EDT)ComponentValueRef RangeTest MethodAnalysis TimePerformed AtPathologist SignatureBarbiturates SgybtpmyAfnynjzf41/17/2025 2:57 AM [facility] ([employer]) BenzodiazepinesPositive(A)Oflwvapb42/17/2025 2:57 AM [facility] ([employer])JvfykvtjjtqiHdqykdutTahhpona28/17/2025 2:57 AM [facility] ([employer])ZbknnmjlsVvwdgcenErfwimle64/17/2025 2:57 AM [facility] ([employer])YrjboyvzedMhuauopwJroemhbv04/17/2025 2:57 AM [facility] ([facility])QkhmnrtbjxiyvIwbfvkrqTyuxfeny46/17/2025 2:57 AM [facility] ([facility])OpiatesPositive(A)Tnnhqogz16/17/2025 2:57 AM [facility] ([facility])EnrnkmjReykrpifKjdhfyfy74/17/2025 2:57 AM [facility] ([facility])Amphetamines/GdxgewejfqkwkdyNugwkowqRdzewgjv10/17/2025 2:57 AM [facility] ([facility])LcfwbklsbzeCquhxvztEbokzgpi87/17/2025 2:57 AM [facility] ([facility])Specimen (Source)Anatomical Location / Laterality Collection Method / VolumeCollection TimeReceived TimeUrineUrine specimen obtained by clean catch procedure / UnknownNon-blood Collection / Unknown 11/01/2024 2:12 AM EDT11/01/2024 2:18 AM EDT Narrative [facility] ([facility]) - 11/01/2024 2:57 AM EDT Unconfirmed screening results should only be used for medical purposes. Authorizing ProviderResult TypeResult StatusKy Barbour [facility] URINE ORDERABLESFinal ResultPerforming OrganizationAddressCity/State/ZIP CodePhone Number [facility] ([facility]) [address] [place] [address] * CORONARY ANGIOGRAPHY, LEFT HEART CATH (10/31/2024 [...] informed consent. ??she was brought to the landscape and yardwork laborer in a fasting state. The left wrist area was prepped and draped in usual fashion. Micropuncture technique was used for access in the radial artery. ??A 5-Vincentian x 11 cm sheath was placed. ??Verapamil was given through the sheath, and heparin was administered intravenously. ?? A 5 Vincentian JR4 diagnostic catheter was advanced and this [...] catheter was then downsized to a 4 Vincentian JR4 diagnostic catheter however this also was not able to engage the right coronary artery. ??Catheter was exchanged to a ??JR4 diagnostic catheter which could not engage the left coronary artery. ??Catheter was exchanged to a 4 Vincentian JL 3.5 diagnostic catheter which eventually was able to engage the left coronary artery. ??Angiography was performed in multiple views. Catheter was exchanged over the wire to a 4 Vincentian 3DRC catheter. ?? Multiple attempts were made [...] Study Details NSTEMI (non-ST elevated myocardial infarction) ([facility]) [I21.4] Authorizing ProviderResult TypeResult StatusColliersb [facility] CARDIAC CATH PROCEDURESFinal Result * LIMITED ECHO (TTE) W/ COLOR FLOW AND IMAGING AGENT (10/31/2024 11:40 AM EDT) Anatomical RegionLateralityModalityOtherSpecimen (Source)Anatomical Location / LateralityCollection Method / VolumeCollection TimeReceived Time10/31/2024 11:16 AM EDT Narrative 10/31/2024 12:44 PM EDT 1 1 [facility] Heart Station [address] [place] [address] [phone] (fax) Echocardiogram-[facility] Name: JUAN GARCIA Study Date: 10/31/2024 11:16 AM B/P: 106 mmHg/67 mmHg HR: 70 bpm Date of : 1990 Location: [facility] Height: 66 in. Age: 34 year(s) Patient Room: [facility] Weight: 181 lb. Gender: Female Patient Status: [...] minimal pericardial effusion. Procedure Staff Reading Group: [facility] [employer] Professional: DAVID Kearney, RDCS ??Ordering Physician: KY BARBOUR ?? Wall Motion Scores -1 - hyperkinesia, 0 - not evaluated, 1 - normal, 2 - hypokinesia, 3 - akinesia, 4 - dyskinesia Procedure Note Mitul Moya MD - 10/31/2024 1 1 [facility] Heart Station [address] [place] [address] [phone] (fax) Echocardiogram-[facility] Name: JUAN GARCIA Study Date: 10/31/2024 11:16 AM B/P: 106 mmHg/67 mmHg HR: 70 bpm Date of : 1990 Location: [facility] Height: 66 in. Age: 34 year(s) [...] minimal pericardial effusion. Procedure Staff Reading Group: [facility] [employer] Professional: Raegan Shoots, BS, RDCS Ordering Physician: KY BARBOUR Wall Motion Scores -1 - hyperkinesia, 0 - not evaluated, 1 - normal, 2 - hypokinesia, 3 - akinesia, 4 - dyskinesia Authorizing ProviderResult TypeResult Lena Barbour [facility] ECHO PROCEDURES Final Result * Hemoglobin A1c (10/31/2024 6:27 AM EDT)ComponentValueRef RangeTest Method Analysis TimePerformed AtPathologist SignatureHemoglobin A1C4.54.0 - 6.0 % 10/31/2024 1:13 PM [facility] ([facility])Estimated Average Hibndec23 mg/dL10/31/2024 1:13 PM [facility] ([facility])Specimen (Source) Anatomical Location / LateralityCollection Method / VolumeCollection Time Received TimeBloodBlood sample taken from central line / UnknownExisting Catheter / Haxpppd3510/31/2024 6:27 AM EDT10/31/2024 7:01 AM EDT Narrative Authorizing ProviderResult TypeResult Lena ROBLERO BLOOD ORDERABLESFinal ResultPerforming OrganizationAddressCity/State/ZIP CodePhone Number [facility] ([facility]) [address] [place] [address] * (ABNORMAL) Lipid panel (10/31/2024 6:27 AM EDT)ComponentValueRef RangeTest MethodAnalysis TimePerformed AtPathologist SjhboretdMjcvilbyelrot70<150 mg/dL 10/31/2024 9:31 AM [facility] ([facility])Comment: TRIGLYCERIDE REFERENCE RANGE: 20 YEARS AND OLDER ?CARDIOVASCULAR RISK LESS THAN 150 mg/dL ? LOW RISK 150 TO 199 mg/dL ?BORDERLINE RISK 200 mg/dL AND GREATER ? HIGH RISK Tmzpndtupkz139(L)120 - 200 mg/dL10/31/2024 9:31 AM [facility] ([facility]) LDL Cpaqcjkcwf984 - 160 mg/dL10/31/2024 9:31 AM [facility] ([facility])HDL 4323 - 92 mg/dL10/31/2024 9:31 AM [facility] ([facility])Non HDL Ltqpfvggiyw3540/16/2025 9:31 AM [facility] ([facility])Total VLDL-C170 - 40 mg/dL10/31/2024 9:31 AM [facility] ([facility])Cholesterol/HDL Ratio2.7 mg/dL10/31/2024 9:31 AM [facility] ([facility])Specimen (Source)Anatomical Location / LateralityCollection Method / VolumeCollection TimeReceived Time BloodBlood sample taken from central line / UnknownExisting Catheter / Unknown 10/31/2024 6:27 AM EDT10/31/2024 7:11 AM EDT Narrative Authorizing ProviderResult TypeResult StatusCaleb Mary Jane Barbour MDLAB BLOOD ORDERABLESFinal ResultPerforming OrganizationAddressCity/State/ZIP CodePhone Number [facility]) [address] [place] [address] * TSH3 Reflex to FT4 (10/30/2024 7:11 PM EDT)ComponentValueRef RangeTest Method Analysis TimePerformed AtPathologist SignatureTSH3.460.34 - 5.60 mIU/L 10/30/2024 8:01 PM [facility] ([facility])Specimen (Source)Anatomical Location / LateralityCollection Method / VolumeCollection TimeReceived Time BloodVenous blood specimen / UnknownExisting Catheter / Gnbrrcv5510/30/2024 7:11 PM EDT10/30/2024 7:18 PM EDT Narrative Authorizing ProviderResult TypeResult StatusDebbie Luna CNPLAB BLOOD ORDERABLES Final ResultPerforming OrganizationAddressCity/State/ZIP CodePhone Number [facility]) [address] [place], [place] [id number] * (ABNORMAL) aPTT - baseline (10/30/2024 7:11 PM EDT)ComponentValueRef RangeTest MethodAnalysis TimePerformed AtPathologist TmzcevvtyuPWJ16.0(H)25.0 - 35.0 Phhiext5710/30/2024 7:48 PM [facility])Comment:Clinical significance of the APTT is questionable in the presence of heparin.Specimen (Source)Anatomical Location / LateralityCollection Method / VolumeCollection TimeReceived TimeBloodVenous blood specimen / UnknownExisting Catheter / Nniabdu7010/30/2024 7:11 PM EDT10/30/2024 7:18 PM EDT Narrative Authorizing ProviderResult TypeResult StatusDebbie Luna MyJobMatcher.comLAB BLOOD ORDERABLES Final ResultPerforming OrganizationAddressCity/State/ZIP CodePhone Number [facility] ([facility]) [address] [place] [address] * B-type natriuretic peptide (10/30/2024 7:11 PM EDT)ComponentValueRef RangeTest MethodAnalysis TimePerformed AtPathologist HzczhgjmfTWP128 - 100 pg/mL 10/30/2024 7:49 PM [facility] ([facility])Specimen (Source)Anatomical Location / LateralityCollection Method / VolumeCollection TimeReceived Time BloodVenous blood specimen / UnknownExisting Catheter / Stmgxws6610/30/2024 7:11 PM EDT10/30/2024 7:18 PM EDT Narrative Authorizing ProviderResult TypeResult Statuscharlotte Luna [facility] BLOOD ORDERABLES Final ResultPerforming OrganizationAddressCity/State/ZIP CodePhone Number [facility] ([facility]) [address] [place] [address] from Last 3 Months Insurance * Guarantor: Juan Garcia TypeRelation to PatientDate of BirthPhone Billing AddressPersonal/VjqfomRvxl86/17/[id number] [place] [id number] Advance Directives * Full Code (Latest Code Status on File) Date ActivatedDate QrixbkvdhhoSrmsxlam01/1/2025 8:05 PM10 4:42 PM * Full Code Date ActivatedDate InactivatedComments11/09/2024 12:31 PM11/13/2024 4:34 PM * Full Code Date ActivatedDate InactivatedComments10/30/2024 7:14 PM11/07/2024 7:10 PM * Full Code Date ActivatedDate InactivatedComments08/16/2024 9:21 PM08/20/2024 5:55 PM Care Teams Team MemberRelationshipSpecialtyStart DateEnd Date Britt Alas MD [address] [place] [address] PCP - Generalmily Medicine08/17/24
--- OUTSIDE RECORDS SUMMARY | 2024-12-07 14:19 | XMS_ITS | Clinical Summary ---
Author Organization [facility] Address [address] [place] [address] Care Team Providers Care Transactional Paralegal Name Role Phone Thomas Alas MD Primary Care Provider [phone] Allergies Active AllergyReactionsCriticalityNoted DateCommentsCodeine And Related 11/12/20174629Mlhbpi67/13/2024 Medications MedicationSigDispense QuantityRefillsLast FilledStart DateEnd DateStatus metformin [...] bedtime.12/27/2023ctive Active Problems ProblemNoted DateDiagnosed DateImpaired intestinal irsdhmqopj17/18/2024 Jejunostomy tube pekddpc1206/07/2023Median arcuate ligament erwdawxj40/14/2023 Dysfunction of sphincter of Oddi11/06/2022cquired kwtdmaizzellkv61/10/2023 Intractable vomiting with vmlssw2610/25/2022hronic nzejthaltidn18/20/2023Mixed anxiety depressive szgfdhim80/20/2023ipolar xcfzgopy52/07/2023Obesity: body mass index of 35.0-39.91evere protein-calorie rbeuvcwkzipj55/20/2021 Trauma and stressor-related rubiyapc46/06/2020Benign essential HTN09/25/2019 Overview (01/25/2024): Last Assessment & Plan: Assessment: not on meds,monitored per PCP BP 141/70 pulse 62 Obstructive sleep apnea mgcckiqa42/23/2019 Overview (01/25/2024): wears mask every night Chronic fatigue sohoehue04/05/2019 Social History Tobacco UseTypesPacks/DayYears UsedDateSmoking Tobacco: NeverSmokeless Tobacco: NeverAlcohol UseStandard Drinks/WeekCommentsNo0 (1 standard drink = 0.6 oz pure alcohol)CommentsNoSex and Gender InformationValueDate RecordedSex Assigned at BirthNot on fileLegal SfsYicern91/28/2018 1:19 PM EDTGender Identity Tvufzb5411/12/2017 1:20 PM EDTSexual GvhglwecqjiVbqwjqoa59/14/2024 7:37 AM EST Last Filed Vital Signs Vital SignReadingTime TakenCommentsBlood Ntutvaqy059/8209 1:52 PM EDT Vbemt129311/02/2022 1:52 PM QVBFdaxkiemxio56.8 ??C (98.3 ??F)11/02/2022 10:34 AM EDTRespiratory Myzr106811/02/2022 1:52 PM EDTOxygen Jdiolxvvov70%11/02/2022 10:34 AM EDTInhaled Oxygen Concentration--Deawwv52.3 kg (188 lb)12/29/2023 10:23 AM BTLJhudum204.6 cm (5' 6 )12/29/2023 10:23 AM ESTBody Mass Index30.34102/27/2023 10:23 AM EST Plan of Treatment Health MaintenanceDue DateLast DoneCommentsHEPATITIS C VIRUS OTOSZPYFI53/17/1990 TSH1989HIV SCREENING GEOJQLARHN84/17/2005HEP B VACCINE (1 of 3 - 19+ 3- dose series)2008CERVICAL CANCER SCREENING YCGKGMBLXJ04/17/2011HPV VACCINE (1 - 3-dose SCDM series)2016COVID-19 VACCINE ( season) 501/05/2021, 06/23/2020INFLUENZA VACCINE (#1)509/, 11/16/2021, 01/01/2021, Additional history ghevkkZVFZPGR32/07/202708/08/2016TDAP (ADULT)Rvmgreafv96/07/2017PNEUMOCOCCAL VACCINE SERIESAged OutNo longer eligible based on patient's age to complete this topic Insurance * Guarantor: Corby Kong TypeRelation to PatientDate of BirthPhoneBilminnie [facility] AddressPersonal/NpdeauRpnq01/17[birth year][id number] [place] [address] * Guarantor: Corby Kong TypeRelation to PatientDate of BirthPhoneBilminnie ham[facility] health center AddressPersonal/EkymtrCfuf20/[birth year][address] [address] Care Teams Team MemberRelationshipSpecialtyStart DateEnd Thomas Alas MD PCP - Xpzhtmj15/14/24
--- OUTSIDE RECORDS SUMMARY | 2024-12-07 14:19 | XMS_ITS | Clinical Summary ---
Author Organization [facility] Healthcare Address [address] [place] [address] Care Team Providers Care Chucking Machine Operator Name Role Phone Anna Mendez NEONATOLOGIST Unavailable Thomas Alas MD Primary Care Provider [phone] Allergies Active AllergyReactionsCriticalityNoted WbdrHagkthpzGdieayv59/21/2023Morphine And CodeineNausea And Vomiting,Other,OylvyjuSnaies33/23/2014 Other Reaction(s): GI Upset, Nausea/vomiting, Not available, Other (See Comments), unknown NsaidsGI eiewxdxgiqgIeu73/15/2022 S/p RYGB Other Reaction(s): Nausea/vomiting Other Reaction(s): Other (See Comments), Unknown Gastric bypass S/p RYGB S/p RYGB Oxycodone-PdchwansjcvagRtrormogiyqBidl63/30/2154Zljuzsjb61/14/2024Wound Dressing QtkslhclNciunCccpig24/23/2020 Sensitive to certain adhesive tapes. Redness and [...] the morning and 1 puff before bedtime.08/20/2021ctive Deadstock NetworkTouch Ultra test strip USE TO TEST BLOOD SUGAR TWICE DAILY08/17/2021ctive hydrOXYzine HCl (Atarax) 25 MG tablet TAKE 1 TABLET BY MOUTH TWICE A DAY NEEDED FOR ANXIETY/OXRVNIMY26/24/2023 Active Lancets (OneTouch Delica Plus Awydjo02G) misc USE TO TEST BLOOD SUGAR TWICE DAILY08/17/2021ctive liothyronine (Cytomel) 5 MCG tablet liothyronine 5 mcg hlbtez6505/21/2022ctive mirtazapine (Remeron) 15 MG tablet Take 15 [...] & Plan: Assessment: monitored per PCP Patellofemoral mggidqpur26/20/2023Other specified noninflammatory disorders of umirke5808/04/2022Mixed incontinence urge and qpooma5008/04/2022Mixed anxiety and depressive /20/2023Internal derangement of right tdxoifvk01/20/2023 GERD (gastroesophageal reflux disease)08/04/2022 Overview (08/04/2022): Last Assessment & Plan: Assessment: takes meds,stable Gall stone08/04/20220625Rkbpzrwh23/20/7898Thamrpiqk02/20/2023hronic constipation 08/04/20221963Hljbsz46/20/2023 Overview (08/04/2022): Takes Pro FE daily. Last Assessment & Plan: Assessment: iron infusions ~1 month ago Acute pain of right knee08/04/2022Vaginal pain08/04/2022Right flank pain 08/04/2022Rash and nonspecific skin bmllapfr21/07/2023History of sleep apnea 06/24/2022History of Isabel-en-Y gastric opjbya7806/24/2022ipolar disorder 06/21/2022astric dfvinh2801/29/2022ONV (postoperative nausea and vomiting) 01/29/2022Ventral hernia without obstruction or gothkfxx37/27/2022 Overview (08/04/2022): Last Assessment & Plan: Assessment: will have surgery Calculus of bxlnfy8403/10/2021History of sleeve cfhdmwbdbgu16/22/2021 Overview (08/04/2022): Last Assessment & Plan: Assessment: 08/2020, down 50 lbs Wlpgvo8008/21/2020 Overview (08/04/2022): Last Assessment & Plan: Assessment: Advair BID and Albuterol daily Unilateral primary osteoarthritis, right knee04/26/2020bnormal finding on imaging of liver04/07/2020evere protein-calorie malnutrition (HHS-HCC) 1Right upper quadrant abdominal pain01/31/2020Situational stress 01/03/2020Panic disorder without hfmpomzpbro67/06/2020Back pain10/15/2019Malaise and bmuhvet9310/06/2019Chronic bilateral low back pain without bqzelfoc48/21/2020 Yesqvvv9710/06/20192159Xdmkjpn94/10/2020 Overview (08/04/2022): Last Assessment & Plan: Assessment: BMI 31.8 Benign essential HTN09/25/2019 Overview (08/04/2022): Last Assessment & Plan: Assessment: not on meds,monitored per PCP BP 141/70 pulse 62 Regurgitation of food09/25/2019Preoperative aquvjpmvasp03/10/2020Nausea 09/25/2019Obstructive sleep apnea iedafvfl50/23/2019 Overview (08/04/2022): wears mask every night Last Assessment & Plan: Assessment: uses CPAP nightly Laryngopharyngeal igfmag9210/07/2018Adrenal eravxmtdzqwp35/20/2019Insulin itmizbayih52/19/2019Reactive mglnuacnooni08/19/2019Iron odwxpejgup50/05/2019 Chronic fatigue bcteorbl29/05/2019Vitamin D jzkedhwzxz56/05/2019Insomnia 09/15/2018Maltracking of right itzsenf6306/27/2018Internal derangement of right knee06/15/2018Osteoarthritis of patellofemoral joint05/30/2018Chondromalacia of patella, right05/30/2018Arthritis of right knee05/30/2018Hypothyroidism affecting in second rcnzinyly92/08/2018Hypertensive mxcietgf94/30/2018 39 weeks gestation of ([facility])11/23/2016Polycystic ereuifm7510/02/2013 Asthma without status vyswhihogtg58/18/2014Gastric ulcer02/15/2013 Overview (08/04/2022): Last Assessment & Plan: [...] Date RecordedSex Assigned at BirthNot on fileLegal FehLniueb77/01/2023 8:33 PM EDTGender IdentityNot on fileSexual OrientationNot on file Last Filed Vital Signs Vital SignReadingTime TakenCommentsBlood Jvwsetko755/8009 8:40 AM EDT Pulse--Temperature--Respiratory Rate--Oxygen Saturation--Inhaled Oxygen Concentration--Fzpcmg53.9 kg (185 lb)12/14/2023 2:11 PM RWPIaikwg929.6 cm (5' 6 )12/14/2023 2:11 PM EDTBody Mass Index29.8612/14/2023 2:11 PM EDT Plan of Treatment Not on file Insurance Care Teams Team MemberRelationshipSpecialtyStart DateEnd Date Thomas Alas MD [address] [place] [address] PCP - GeneralFamily Odetyvzu04/29/24 Anna Mendez NP [address] [place] [address] Referring Physicianmily Medicine07/23/22
--- OUTSIDE RECORDS SUMMARY | 2024-12-07 14:19 | XMS_ITS | Encounter Summary ---
Author Organization [facility] Address [address] [place] [address] Care Team Providers Care Entry Level Project Coordinator Name Role Phone Thomas Alas MD Primary Care Provider [phone] Encounter Details DateTypeDepartmentCare Team (Latest Contact Info)Ssgusqrqdnk76/17/2025Orders Only [facility] [address] [place] [address] Muna Michael, RN Common bile duct dilation (Primary Dx) Social History Tobacco UseTypesPacks/DayYears UsedDateSmoking Tobacco: NeverSmokeless Tobacco: NeverAlcohol UseStandard Drinks/WeekCommentsNot Currently0 (1 standard drink = 0.6 oz pure alcohol)[facility] UtilitiesAnswerDate RecordedIn the past 12 months has the HSystem, gas, oil, or water [employer] threatened to shut off services in your [...] or living in a long term (including now)?No11/15/2024Hunger Vital SignAnswerDate RecordedWithin the past 12 months, you worried that your food would run out before you got the money to buymore.Never true11/15/2024Ran Out of Food in the Last YearNot on file 11/15/2024CommentsNoSex and Gender InformationValueDate RecordedSex Assigned at BvmbsFtcbnw59/03/2025 3:45 PM EDTLegal MagReijin83/30/2022 12:07 AM EDTGender GuaiimeeKitcgi35/03/2025 3:45 PM EDTSexual OrientationHeterosexual or Iegzddjv95/03/2025 3:45 PM EDTdocumented as of this encounter Plan of Treatment DateTypeDepartmentCare Team (Latest Contact Info)Jsfuamuojio55/30/2025 9:00 AM EDTAppointment [facility] [address] [place] [address] Braxton Bellamy MD [address] [facility] [place] [address] 12/14/2024 10:30 AM EDTAppointment [facility] [address] [place] [address] 01/31/2025 11:00 AM ESTOffice Visit [facility] [address] [place] [address] Wali Collins MD [address] [place] [address] NameTypePriorityAssociated DiagnosesOrder ScheduleFl in EndoImagingRoutine Common bile duct dilation Expected: 12/14/2024, Expires: 12/01/2025documented as of this encounter Visit Diagnoses Diagnosis Common bile duct dilation- Primary documented in this encounter Care Teams Team MemberRelationshipSpecialtyStart DateEnd Date Thomas Alas MD [address] [place] [address] PCP - GeneralFamily Medicine08/17/24documented as of this encounter
--- OUTSIDE RECORDS SUMMARY | 2024-12-07 14:19 | XMS_ITS | Clinical Summary ---
Author Organization [facility] Address [address] [place] [address] Phone Care Team Providers Care Energy Broker Name Role Phone Generic Provider, No Assigned [...] mouth once daily at bedtime. 30 MG SGCDXAQAJ85/26/2023 Active polyethylene glycol (Glycolax, Miralax) 17 gram/dose [...] pain06/30/2023cute renal failure superimposed on chronic kidney lplhrit2506/29/20234588Ugyikakvsxp88/14/2024Heart bfiykho8406/29/2023bdominal pain03/16/2023Nausea and /19/2024OSA (obstructive sleep apnea)03/05/20235245Igpvnm05/19/5737Zozribv48/19/2024 Ipxnxisrtydhib61/19/1949Xbwdkyjwfd25/19/2024Median arcuate ligament syndrome 02/18/2023 Encounters DateTypeDepartmentCare XiftEtgauudzbdh01/26/2025 11:00 AM EDT - 10/10/2024 11:59 PM EDTHospital Encounter [facility] [address] [place] [address] Discharge Disposition: Home10/09/2024 10:15 AM EDTTelemedicine [facility] [address] [place] [address] Jerad Magaña MD Median arcuate ligament syndrome (Primary Dx) Discharge Disposition: Home10/06/2024 9:00 AM EDTAncillary Procedure [facility] [address] [place] [address] Median arcuate ligament zrjuhltz91/04/2025Orders Only [facility] [address] [place] [address] Crystal Monique, DEE Median arcuate ligament syndrome [...] RecordedIn the past 12 months has the [employer], gas, oil, or water [employer] threatened to shut off services in your [...] relatives?Twice a week06/30/2023How often do you attend hoahaoism or yazidi services?More than 4 times per year06/30/2023o you belong to any clubs or organizations such as hoahaoism groups, unions, fraternal [...] heating?Not hard at all06/30/2023HQ-2AnswerDate RecordedPatient Health Questionnaire-2 Vwmql874[facility] Occup[facility] - Occupational Stress QuestionnaireAnswerDate [...] steady place to sleep or slept in quecreekelter (including now)?No 06/30/2023UDIT-CAnswerDate RecordedQ1: How often do you have a drink containing alcohol?Never10/09/2024Q2: How many drinks containing alcohol do you have on a typical day when you are drinking?Patient does not drink10/09/2024Q3: How often do you have six or more drinks on one occasion?Never10/09/2024Comments UnknownSex and Gender InformationValueDate RecordedSex Assigned at BirthFemale 02/23/2023 4:19 AM ESTLegal EksCisgmo49/26/2022 6:26 PM ESTGender IdentityFemale 03/02/2023 2:54 PM ESTSexual IhhskflnmhyGfgsfdvn19/16/2024 2:54 PM EST Last Filed Vital Signs Vital SignReadingTime TakenCommentsBlood Mksekhqt81/57007/03/2023 7:00 AM EDT Abfjh03309/18/2024 7:00 AM UAHLjucjfcubus86 ??C (98.6 ??F)07/03/2023 7:00 AM EDT Respiratory Mkzx125707/03/2023 7:00 AM EDTOxygen Yyimichygs620%07/03/2023 7:00 AM EDTInhaled Oxygen Concentration--Bzhfns42.2 kg (168 lb)06/29/2023 6:16 PM EDT Chumrm861.6 cm (5' 6 )06/29/2023 6:16 PM EDTBody Mass Index27.1205 6:16 PM EDT Plan of Treatment Health MaintenanceDue DateLast KmepTdrvjrosWvtfnemakgldto33/17/1990HIV Screening 1989Lipid Panel1989Yearly Adult Mkwjqyvh25/17/1990MMR Vaccines (1 of 1 - Standard series)1990Hepatitis C Qvbootowj75/17/2008Hepatitis A Vaccines (1 of 2 - Risk 2-dose series)2008Hepatitis B Vaccines (1 of 3 - 19+ 3-dose series)2008Pneumococcal Vaccine: Pediatrics and At-Risk Adult Patients (1 of 2 - PCV)2008Zoster Vaccines (1 of 2)2008HPV/Cotest 2010HPV Vaccines (1 - Risk 3-dose Standard series)2016COVID-19 Vaccine (2 - Woo risk series)07/21//ervical Cancer Screening 4Pap Smear/07/2020TSH Level09/11/007881/3Creatinine Level/, 07/01/2023, 06/30/2023, Additional history exists Potassium Level/, 07/01/2023, 06/30/2023, Additional history existsInfluenza Vaccine (#1)/, 11/16/2021, 01/01/2021, Additional history existsDiabetes Yfwewwhrm74/06/199824/07/2024, 08/19/2024, 08/18/2024, Additional history existsDTaP/Tdap/Td Vaccines (2 [...] LotMembrane, Seprafilm, 5 X 6 In - [id number] Implanted:Qty: 1 on 03/05/2023 by [facility]N/A: AbdomenNOVANT HEALTH PRESBYTERIAN MEDICAL [id number] / / [id number] Procedures Procedure NamePriorityDate/TimeAssociated DiagnosisCommentsCT TRANSFER OF OUTSIDE WGUPMNhytuhp83/26/2025 11:03 AM EDT VASC US MESENTERIC ARTERY DUPLEX INRKEEGVYxeemyc15/22/2025 9:40 AM EDT Median arcuate ligament syndrome POCT CEEALMUDfovacc14/18/2024 7:17 AM EDT RENAL FUNCTION AKXBHUrigdiw83/17/2024 6:47 AM EDT from Last 3 Months [...] AM EDT Narrative 10/06/2024 1:59 PM [place]T ?[place] [address] ? Vascular Lab Report VASC US MESENTERIC ARTERY DUPLEX COMPLETE Patient Name: ?JUAN MRenetta ATKINSONY ? Reading Physician: [id number] Rivera ?MD Study Date: ?10/06/2024 ? Ordering Provider: [id number] JERAD MAGAÑA MRN/PID: ? [id number] ?Fellow: Accession#: ?[id number] ?Technologist: ?Leia Degroot RVT Date of /Age: 2 1990 / 34 ?Technologist 2: ? years Gender: ?F ? Admission Status: ??Outpatient ?[facility] ? [facility] ? 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 75171 Mesenteric Duplex scan ` CONCLUSIONS: Mesenteric: Superior [...] cm/s KEELY Prox PSV ?? 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 CPT Codes: 54081 Mesenteric Duplex scan ` CONCLUSIONS: Mesenteric: Superior [...] 61 cm/s KEELY Prox PSV 118 cm/s [id number] Ann Rivera MD Final Authorizing ProviderResult TypeResult StatusWtramaine Magaña [facility] VASCULAR PROCEDURESFinal Result * (ABNORMAL) POCT GLUCOSE (07/03/2023 7:17 AM EDT)ComponentValueRef RangeTest MethodAnalysis TimePerformed AtPathologist SignaturePOCT Hdrkeww778(H)74 - 99 mg/dL07/03/2023 7:24 AM [facility] LABSpecimen (Source) Anatomical Location / LateralityCollection Method / VolumeCollection Time Received TimeBloodCapillary blood specimen / Qrzaxoq8307/03/2023 7:17 AM EDT 07/03/2023 7:24 AM EDT Narrative Authorizing ProviderResult TypeResult StatusCygopi ROBLERO POINT OF CARE TEST DOCKED DEVICE UNSOLICITED RESULTSFinal ResultPerforming OrganizationAddress City/State/ZIP CodePhone Number [facility] [address] [place], [place] [id number] * (ABNORMAL) Renal Function Panel (07/02/2023 6:47 AM EDT)ComponentValueRef RangeTest MethodAnalysis TimePerformed AtPathologist TwqvtcndvDicgxlo454(H)65 - 99 mg/dL07/02/2023 7:53 AM [facility] RLFFagyvr585065 - 145 mmol/L07/02/2023 7:53 AM [facility] LABPotassium3.93.4 - 5.1 mmol/L07/02/2023 7:53 AM [facility] CHAHpeugqgf88801 - 107 mmol/L07/02/2023 7:53 AM [facility] GPMNsndllolsuv97(L)24 - 31 mmol/L07/02/2023 7:53 AM [facility] LABUrea Nerntmax796 - 25 mg/dL07/02/2023 7:53 AM [facility] LABCreatinine0.700.40 - 1.60 mg/dL07/02/2023 7:53 AM [facility] LABeGFR>90>60 mL/min/1.73m*2 07/02/2023 7:53 AM [facility] LABComment: Calculations of estimated GFR are performed using the 2020 CKD-EPI Study Refit equation without therace variable for the IDMS-Traceable creatinine methods. https://jasn.asnjournals.org/content/early/ASN.4820636701 Calcium8.68.5 - 10.4 mg/dL07/02/2023 7:53 AM [facility] Phosphorus4.02.5 - 4.5 mg/dL07/02/2023 7:53 AM [facility] Albumin4.03.5 - 5.0 g/dL07/02/2023 7:53 AM [facility] LABAnion Gap 11<=19 mmol/L07/02/2023 7:53 AM [facility] LABSpecimen (Source) Anatomical Location / LateralityCollection Method / VolumeCollection Time Received TimeBloodVenous blood specimen / Zvmpzen2607/02/2023 6:47 AM EDT 07/02/2023 6:58 AM EDT Narrative Authorizing ProviderResult TypeResult StatusOludatelma ROBLERO BLOOD ORDERABLESFinal ResultPerforming OrganizationAddressCity/State/ZIP CodePhone Number [facility] [address] [place] [address] from Last 3 Months or Most Recently Relevant to Health Maintenance Insurance Advance Directives For more information, please contact: [phone] (Available ) * Full Code (Latest Code Status on File) Date ActivatedDate InactivatedComments03/05/2023 2:37 PMQuestionAnswerComments Plan of Care:* Code Status Discussion Completed Decision Maker:* Patient Care Teams Team MemberRelationshipSpecialtyStart DateEnd Date Generic Provider, No Assigned Pcp, [place] [address] PCP - GeneralGeneral Practice06/29/23
--- OUTSIDE RECORDS SUMMARY | 2024-12-07 14:19 | XMS_ITS | Encounter Summary ---
Author Organization [facility] Address [address] [place] [address] Care Team Providers Care Stone Sandblaster Name Role Phone Thomas Alas MD Primary Care Provider [phone] Encounter Details DateTypeDepartmentCare Team (Latest Contact Info)Gcyclyiuxha73/12/2025Travel Social History Tobacco UseTypesPacks/DayYears UsedDateSmoking Tobacco: NeverSmokeless Tobacco: NeverAlcohol UseStandard Drinks/WeekCommentsNot Currently0 (1 standard drink = 0.6 oz pure alcohol)[facility] UtilitiesAnswerDate RecordedIn the past 12 months has [...] homeless or living in a retirement (including now)?No11/15/2024Hunger Vital SignAnswerDate RecordedWithin the past 12 months, you worried that your food would run out before you got the money to buymore.Never true11/15/2024Ran Out of Food in the Last YearNot on file 11/15/2024CommentsNoSex and Gender InformationValueDate RecordedSex Assigned at DxxnoJsxurr98/03/2025 3:45 PM EDTLegal GoqQkqsav09/30/2022 12:07 AM EDTGender DewpplycVykssy90/03/2025 3:45 PM EDTSexual OrientationHeterosexual or Dymxrpmx20/03/2025 3:45 PM EDTdocumented as of this encounter Functional Status * QuestionAnswerDate of CfuvvyyzhjSxzchlTY287/6011/26/2024 9:25 PM Andie Bridges, ZWMctjk3943/12/2025 9:25 PM Andie Bridges RN * Qureshi Fall RiskQuestionAnswerDate of AssessmentAuthorHistory of Falling, Immediate or Within 3 Onpesr129 7:34 PM Roseline Lopez RNSecondary Xhcqngdmz742/12/2025 7:34 PM Roseline Lopez RNAmbulatory Sax911 7:34 PM Roseline Lopez RNIntravenous Therapy/Heparin Yxyb136 7:34 PM Roseline Lopez RNGait/Yfsxzlpsocka917/12/2025 7:34 PM Roseline Lopez RNMental Axvzqn261 7:34 PM Roseline Lopez RNMorse Fall Risk Boedm957 7:34 PM Roseline Lopez RN * Cyrus ScaleQuestionAnswerDate of AssessmentAuthorBraden No Risk Interventions Continue to assess patient according to level of care11/26/2024 8:30 PM EDT Andie Fletcher, RNSensory Sjputmirdmg789/12/2025 8:30 PM Andie Bridges RNMoisture41 8:30 PM Andie Bridges, RNActivity4 11/26/2024 8:30 PM Andie Bridges RNMobility31 8:30 PM EDT Andie Fletcher RNNutrition21 8:30 PM Andie Bridges RN Friction and Dshgz323 8:30 PM Andie Bridges RNBraden Scale Ahwcj5216/12/2025 8:30 PM Andie Bridges RN * Patient's Stated Pain GoalAnswerDate of AssessmentAuthorNo pain11/26/2024 9:33 PM Andie Bridges RN * [place] Fall Risk InterventionsQuestionAnswerDate of AssessmentAuthor [place] Fall Risk JzoekrowbybxrTinchozn72/12/2025 7:34 PM Roseline Lopez RN * Pain Assessment TimerQuestionAnswerDate of AssessmentAuthorRestart Pain Assessment RpjbcNto89/12/2025 9:33 PM Andie Bridges RN * In the past 12 months, have you used drugs other than those required for medical reasons?AnswerDate of KsazbvccwfAvarmg411/12/2025 7:35 PM Roseline Lopez RN * Sepsis Model ScoresQuestionAnswerDate of AssessmentAuthorEarly Detection of Sepsis Score1.4611/26/2024 9:31 PM Matthias FatimaqEarly Detection of Sepsis Vnsap415 9:31 PM Delano Fatima * Pain AssessmentQuestionAnswerDate of AssessmentAuthorPain LocationAbdomen 11/26/2024 8:30 PM Andie Bridges RNPain NrnychkkccmFsclm87/12/2025 8:30 PM Andie Bridges RNPain OzyxfazwtctivFhiqbaraqfwd94/12/2025 8:30 PM Andie Bridges RNPain DescriptorsPressure;Kvznsc2811/26/2024 8:30 PM Andie Bridges RNPain WinuvQfusejr09/12/2025 8:30 PM Andie Bridges RNPain TypeAcute pain11/26/2024 8:30 PM Andie Bridges RN Clinical ProgressionNot pjccutn6011/26/2024 8:30 PM Andie Bridges RNPain Assessment0-101 8:30 PM Andie Bridges RN * Pain ScoreAnswerDate of MpgaewrrbjQotsdv909/12/2025 9:33 PM Andie Bridges RN * Audit [...] Andie Bridges RN * Vital SignsQuestionAnswerDate of QczyebemfjQhacxiKO375/6011/26/2024 9:25 PM Andie Bridges RNTemp97.91 7:34 PM Roseline Lopez RNTemp wlfBqwl6211/26/2024 7:34 PM Roseline Lopez RNPulse7311/26/2024 9:25 PM Andie Muhammad RNResp181 9:25 PM Andie Bridges ENYgF391 11/26/2024 9:25 PM Andie Bridges RNMAP (mmHg)7311/26/2024 9:25 PM EDT Andie Fletcher RNPulse rate from Plethysmogram (bpm)7211/26/2024 9:25 PM Andie Bridges RN * GastrointestinalQuestionAnswerDate of AssessmentAuthorAbdominal TendernessSoft 11/26/2024 8:30 PM Andie Bridges RNBowel Sounds (All Quadrants)Active 11/26/2024 8:30 PM Andie Bridges RNGastrointestinal (WDL)X1 8:30 PM Andie Bridges RNAbdomen YaedikabgpWnvu60/12/2025 8:30 PM EDT Andie Fletchre RNGastrointestinal SymptomsNausea;Uwxdokzo85/12/2025 8:30 PM Andie Bridges RNBowel SoundsAll rfilltrfs38/12/2025 8:30 PM EDT Andie Fletcher RN * Peripheral VascularQuestionAnswerDate of AssessmentAuthorPeripheral Vascular (WDL)WDL1 8:30 PM Andie Bridges RN * MusculoskeletalQuestionAnswerDate of AssessmentAuthorMusculoskeletal (WDL)WDL 11/26/2024 8:30 PM Andie Bridges RN * PsychosocialQuestionAnswerDate of AssessmentAuthorPsychosocial (WDL)WDL 11/26/2024 8:30 PM Andie Bridges RN * Qureshi Fall RiskQuestionAnswerDate of AssessmentAuthorHistory of Falling, Immediate or Within 3 Ftkvnv516 7:34 PM Roseline Lopez RNSecondary Otvjowqmz468/12/2025 7:34 PM Roseline Lopez RNAmbulatory Ylv447 7:34 PM Roseline Lopez RNIntravenous Therapy/Heparin Rlff506 7:34 PM Roseline Lopez RNGait/Jganupdgdtsg593/12/2025 7:34 PM Roseline Lopez RNMental Unlmet444 7:34 PM Roseline Lopez RNMorse Fall Risk Qyzwe715 7:34 PM Roseline Lopez RN * Cyrus ScaleQuestionAnswerDate of AssessmentAuthorBraden No Risk Interventions Continue to assess patient according to level of care11/26/2024 8:30 PM EDT Andie Fletcher, RNSensory Oprbotsgbwg503/12/2025 8:30 PM Andie Bridges RNMoisture41 8:30 PM Andie Bridges, RNActivity4 11/26/2024 8:30 PM Andie Bridges RNMobility31 8:30 PM EDT Andie Fletcher RNNutrition21 8:30 PM Andie Bridges RN Friction and Xxdoy520 8:30 PM Andie Bridges RNBraden Scale Ceasc0844 8:30 PM Andie Brigdes RN * CardiacQuestionAnswerDate of AssessmentAuthorCardiac (WDL)WDL1 8:30 PM Andie Bridges RN * RespiratoryQuestionAnswerDate of AssessmentAuthorRespiratory (WDL)WDL 11/26/2024 8:30 PM Andie Bridges RN * Charting TypeQuestionAnswerDate of AssessmentAuthorCharting TypeShift blkaueojbf61/12/2025 8:30 PM Andie Bridges RN * Patient's Stated Pain GoalAnswerDate of AssessmentAuthorNo pain11/26/2024 9:33 PM Andie Bridges RN * GenitourinaryQuestionAnswerDate of AssessmentAuthorGenitourinary (WDL)X 11/26/2024 8:30 PM Andie Bridges RN * NeurologicalQuestionAnswerDate of AssessmentAuthorNeuro (WDL)WDL1 8:30 PM Andie Bridges RN * [place] Fall Risk InterventionsQuestionAnswerDate of AssessmentAuthor [place] Fall Risk LvvkffmqiewcdFfmneexg43/12/2025 7:34 PM Roseline Lopez RN * Kris Coma ScaleQuestionAnswerDate of AssessmentAuthorBest Eye Response Kkhsgtzddur26/12/2025 8:30 PM Andie Bridges RNBest Verbal Response Ndqqpifd70/12/2025 8:30 PM Andie Bridges RNBest Motor ResponseFollows vegaorjd17/12/2025 8:30 PM Andie Bridges RNGlasgow Coma Scale Score15 11/26/2024 8:30 PM Andie Bridges RN * Pain AssessmentQuestionAnswerDate of AssessmentAuthorPain LocationAbdomen 11/26/2024 8:30 PM Andie Bridges RNPain AhbqljkqfwtKskgg45/12/2025 8:30 PM Andie Bridges RNPain BzbesibzhakqdDwkfwgjzrwul23/12/2025 8:30 PM Andie Bridges RNPain DescriptorsPressure;Mkfuvf2911/26/2024 8:30 PM Andie Bridges RNPain DcyuoRvrswsl79/12/2025 8:30 PM Andie Bridges RNPain TypeAcute pain11/26/2024 8:30 PM Andie Bridges RN Clinical ProgressionNot oldkblx2511/26/2024 8:30 PM Andie Bridges RNPain Assessment0-101 8:30 PM Andie Bridges RN * IntegumentaryQuestionAnswerDate of AssessmentAuthorSkin ColorAppropriate for race11/26/2024 8:30 PM Andie Bridges RNSkin Condition/TempWarm;Dry 11/26/2024 8:30 PM Andie Bridges RNIntegumentary (WDL)X1 8:30 PM Andie Bridges RN * Pain ScoreAnswerDate of JvupesntbpUeimzg534/12/2025 9:33 PM Andie Bridges RN * [place] Suicide Severity Rating ScaleQuestionAnswerDate of AssessmentAuthor1. Have [...] Plan of Treatment DateTypeDepartmentCare Team (Latest Contact Info)Apaebcyxvfu50/30/2025 9:00 AM EDTAppointment [facility] [address] [place] [address] Braxton Bellamy MD [address] [facility] [address] [facility] [place] [place] [address] 12/14/2024 10:30 AM EDTAppointment [facility] [address] [place] [address] 01/31/2025 11:[address] [facility] [address] [place] [address] Wali Collins MD [address] [place] [address] documented as of this encounter Visit Diagnoses Not on filedocumented in this encounter Care Teams Team MemberRelationshipSpecialtyStart DateEnd Thomas Alas MD [address] [facility] [address] [address] PCP - GeneralFamily Medicine08/17/24documented as of this encounter
--- OUTSIDE RECORDS SUMMARY | 2024-12-07 14:19 | XMS_ITS | Encounter Summary ---
Author Organization [facility] Address [address] [place] [address] Care Team Providers Care Biomedical Technician Name Role Phone Thomas Alas MD Primary Care Provider [phone] Encounter Details DateTypeDepartmentCare Team (Latest Contact Info)Rsuttjqucis57/20/2025Travel Social History Tobacco UseTypesPacks/DayYears UsedDateSmoking Tobacco: NeverSmokeless Tobacco: NeverAlcohol UseStandard Drinks/WeekCommentsNot Currently0 (1 standard drink = 0.6 oz pure alcohol)[facility] UtilitiesAnswerDate RecordedIn the past 12 months has [...] homeless or living in a detention (including now)?No11/15/2024Hunger Vital SignAnswerDate RecordedWithin the past 12 months, you worried that your food would run out before you got the money to buymore.Never true11/15/2024Ran Out of Food in the Last YearNot on file 11/15/2024CommentsNoSex and Gender InformationValueDate RecordedSex Assigned at KcotlGwxtvk53/03/2025 3:45 PM EDTLegal XocIucwzw63/30/2022 12:07 AM EDTGender HwwzxztlLkacim42/03/2025 3:45 PM EDTSexual OrientationHeterosexual or Kedwjesp03/03/2025 3:45 PM EDTdocumented as of this encounter Plan of Treatment DateTypeDepartmentCare Team (Latest Contact Info)Qyflmudymfs93/30/2025 9:00 AM EDTAppointment [facility] [address] [place] [address] Braxton Bellamy MD [address] [facility] [address] [facility] [place] [place] [address] 12/14/2024 10:30 AM EDTAppointment [facility] X-[facility] [address] [place] [address] 01/31/2025 11:00 AM ESTOffice Visit [facility] [address] [place] [address] Wali Collins MD [address] [place] [address] documented as of this encounter Visit Diagnoses Not on filedocumented in this encounter Care Teams Team MemberRelationshipSpecialtyStart DateEnd Date Thomas Alas MD [address] [facility] [address] [address] PCP - GeneralFamily Medicine08/17/24documented as of this encounter
--- NOTE | 2024-12-07 14:24 | ED_ITS ---
HPI HPI - General Adult General Chief complaint: Chest Pain Stated complaint: DIZZINESS CHEST PAIN SOB Time Seen by Provider: 12/07/24 14:12 Source: patient Mode of arrival: Wheelchair Limitations: no limitations History of Present Illness HPI narrative: 34 year old female presents to the ED for chest pain. Onset was 45 minutes ago. It radiates to her back and left shoulder. Reports SOB, nausea. Denies fever, chills, dizziness, vision changes. She is requesting Compazine and Benadryl for her nausea. She has hx gastroparesis. Pt reports she regularly receives Compazine and Benadryl for her gastroparesis symptoms. She was treated 10/30/24 for NSTEMI with transfer to [facility], per her records. Pt report hx recent spontaneous coronary artery dissection. She is prescribed aspirin and plavix. Related Data Home Medications ?Medication ?Instructions ?Recorded ?Confirmed hydroxyzine HCl 25 mg tablet 25 mg PO BID PRN anxiety 09/17/22 11/19/24 topiramate 100 mg tablet 100 mg PO BID 09/17/2211/19 metoclopramide HCl 10 mg tablet 10 mg PO BID PRN nause a and 06/14/23 11/19/24 vomiting escitalopram oxalate 20 mg tablet 20 mg PO DAILY 06/1411/19/24 levothyroxine 75 mcg tablet 75 mcg PO DAILY 06/15/23 1 acetaminophen 325 mg tablet (Pain 650 mg PO Q4H PRN pa in 06/24/23 11/19/24 Relief (acetaminophen)) blood sugar diagnostic ([employer]Touch 03/29/24 11/19/24 Ultra Test strips) blood-glucose meter (OneTouch 03/29/24 11/19/24 Ultra2 Meter) blood-glucose sensor (FreeStyle 03/29/24 11/19/24 Hunter 3 Plus Sensor device) fentanyl 25 mcg/hr transdermal 1 patch transdermal Q72 H 03/29/24 11/19/24 patch hydrocodone 5 mg-acetaminophen 325 1 tab PO Q6H PRN pa in 03/29/24 11/19/24 mg tablet lancets 30 gauge (OneTouch Delica 03/29/24 11/19/24 Plus Lancet) pen needle, diabetic 32 gauge x 03/29/24 11/19/24 (BD Stefania 2nd Gen Pen Needle) prucalopride 2 mg tablet 2 mg PO DAILY 03/29/2411/19 trazodone 100 mg tablet 100 mg PO .qhs 03/29/2407/09 ergocalciferol (vitamin D2) 1,250 1,250 mcg PO .Q7 09/0811/19/24 mcg (50,000 unit) capsule mirtazapine 45 mg tablet 45 mg PO BEDTIME 08/16/24 aspirin 81 mg chewable tablet 1 tab PO .qd 11/19/24 clopidogrel 75 mg tablet 75 mg PO .qd 11/19/24 colchicine 0.6 mg tablet 0.3 mg PO .qod 11/19/2407/09 fentanyl 12 mcg/hr transdermal 1 patch transdermal Q72 H 11/19/24 11/19/24 patch methocarbamol 500 mg tablet 750 mg PO Q6H PRN Muscle s pasm 11/19/24 11/19/24 metoprolol succinate 25 mg 25 mg PO .qd 11/19/2411/19 tablet,extended release 24 hr ranolazine 500 mg tablet,extended 500 mg PO Q12H 11/1911/19/24 release,12 hr rosuvastatin 40 mg tablet 40 mg PO .qhs 11/19/2411/19 verapamil 40 mg tablet 40 mg PO Q8H 11/19/24 Previous Rx's ?Medication ?Instructions ?Recorded meloxicam 7.5 mg tablet 7.5 mg PO DAILY PRN pain #3 tabs 11/30/24 Allergies Allergy/AdvReac Type Severity Reaction Status Date / Time adhesive Allergy Rash Verified 11/30/24 09:59 NSAIDS (Non-Steroidal Allergy intolerance Verified 11/30/24 09:59 Anti-Inflamma codeine AdvReac Vomiting Verified 11/30/24 09:59 Opioid HPI Opioid Management Most Recent Opioid Data: Last Pain Scale 8 Today, 15:31 Last ED Pain Assessment Today, 15:11 Last MAR Pain Assessment Today, 15:31 Last ORT Total Score 1 11/19/24, 15:40 Last ORT Risk Category Low Risk 11/19/24, 15:40 Ur Phencyclidine Scrn, (NEGATIVE) Negative , 14:10 Review of Systems ROS Constitutional Denies: fever or chills Ears, nose, mouth, and throat Denies: throat pain Cardiovascular Reports: chest pain Respiratory Reports: shortness of breath; Denies: cough Gastrointestinal Reports: nausea; Denies: abdominal pain, vomiting or diarrhea Musculoskeletal Reports: back pain and joint pain; Denies: neck pain Neurological Denies: headache, weakness in extremities or dizziness [facility] Medical History (Updated 12/07/24 @ 17:13 by Trinidad Gordillo) Coronary artery dissection ?I25.42 - Coronary artery dissection (ICD-10) Hypoglycemia ?E16.2 - Hypoglycemia, unspecified (ICD-10) Gastroenteritis ?K52.9 - Noninfective gastroenteritis and colitis, unspecified (ICD-10) Feeding by G-tube ?Z93.1 - Gastrostomy status (ICD-10) Abdominal pain ?R10.9 - Unspecified abdominal pain (ICD-10) Small bowel intussusception ?K56.1 - Intussusception (ICD-10) Nausea and vomiting ?R11.2 - Nausea with vomiting, unspecified (ICD-10) Flank pain ?R10.9 - Unspecified abdominal pain (ICD-10) Abdominal pain ?R10.9 - Unspecified abdominal pain (ICD-10) Acute abdomen ?R10.0 - Acute abdomen (ICD-10) Intractable nausea and vomiting ?R11.2 - Nausea with vomiting, unspecified (ICD-10) Intractable abdominal pain ?R10.9 - Unspecified abdominal pain (ICD-10) Depression ?F32.A - Depression, unspecified (ICD-10) Asthma ?J45.909 - Unspecified asthma, uncomplicated (ICD-10) Dyspareunia Pelvic pain ?R10.2 - Pelvic and perineal pain (ICD-10) Ovarian cyst ?N83.209 - Unspecified ovarian cyst, unspecified side (ICD-10) PONV (postoperative nausea and vomiting) ?R11.2 - Nausea with vomiting, unspecified (ICD-10) ?Z98.890 - Other specified postprocedural states (ICD-10) PCOS (polycystic ovarian syndrome) ?E28.2 - Polycystic ovarian syndrome (ICD-10) Hypothyroidism (acquired) ?E03.9 - Hypothyroidism, unspecified (ICD-10) Anxiety ?F41.9 - Anxiety disorder, unspecified (ICD-10) GERD (gastroesophageal reflux disease) ?K21.9 - Gastro-esophageal reflux disease without esophagitis (ICD-10) Sleep apnea ?G47.30 - Sleep apnea, unspecified (ICD-10) Anemia ?D64.9 - Anemia, unspecified (ICD-10) Fibromyalgia ?M79.7 - Fibromyalgia (ICD-10) Syncope (07/07/13) ?R55 - Syncope and collapse (ICD-10) Shingles ?B02.9 - Zoster without complications (ICD-10) Headache ?R51.9 - Headache, unspecified (ICD-10) Migraine ?G43.909 - Migraine, unspecified, not intractable, without status migrainosus (ICD-10) Mechanical ileus (01/31/20) ?K56.609 - Unspecified intestinal obstruction, unspecified as to partial jovana topher complete obstruction (ICD-10) COVID-19 (~02/2020) ?U07.1 - COVID-19 (ICD-10) Kidney stones ?N20.0 - Calculus of kidney (ICD-10) Surgical History S/P percutaneous endoscopic gastrostomy (PEG) tube placement ?Z93.1 - Gastrostomy status (ICD-10) 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 - Celiac artery compression syndrome (ICD-10) H/O shoulder surgery (2022) ?Z98.890 - Other specified postprocedural states (ICD-10) History of hip surgery ?Z98.890 - Other specified postprocedural states (ICD-10) S/P right knee arthroscopy ?Z98.890 - Other specified postprocedural states (ICD-10) S/P left knee arthroscopy ?Z98.890 - Other specified postprocedural states (ICD-10) Hx of tonsillectomy ?Z90.89 - Acquired absence of other organs (ICD-10) History of thoracic surgery (~2021) ?Z98.890 - Other specified postprocedural states (ICD-10) History of esophagogastroduodenoscopy (EGD) (10/04/13) ?Z98.890 - Other specified postprocedural states (ICD-10) History of cholecystectomy (10/06/13) ?Z90.49 - Acquired absence of other specified parts of digestive tract (ICD- 10) Delivery by section (~2016) Delivery by section (01/17/18) H/O colonoscopy (~2018) ?Z98.890 - Other specified postprocedural states (ICD-10) S/P right knee arthroscopy (07/21/18) ?Z98.890 - Other specified postprocedural states (ICD-10) Delivery by section (06/19/19) History of appendectomy (09/25/19) ?Z90.49 - Acquired absence of other specified parts of digestive tract (ICD- 10) H/O laparoscopy (11/10/19) ?Z98.890 - Other specified postprocedural states (ICD-10) History of liver biopsy (~04/2020) ?Z98.890 - Other specified postprocedural states (ICD-10) H/O laparoscopy (07/18/20) ?Z98.890 - Other specified postprocedural states (ICD-10) H/O arthroscopy of right knee (08/07/20) ?Z98.890 - Other specified postprocedural states (ICD-10) S/P laparoscopic sleeve gastrectomy (09/03/20) ?Z98.84 - Bariatric surgery status (ICD-10) H/O: hysterectomy (11/12/20) ?Z90.710 - Acquired absence of both cervix and uterus (ICD-10) History of hernia repair (03/20/21) ?Z98.890 - Other specified postprocedural states (ICD-10) ?Z87.19 - Personal history of other diseases of the digestive system (ICD-10) Family History Other Family history of cancer Family history of diabetes mellitus Family history of hypertension Family history of myocardial infarction PONV (postoperative nausea and vomiting) Social History Within the past year, how often did you have a drink containing alcohol: never Score interpretation: A score less than 3 is consistent with normal alcohol consumption. Smoking status: Never smoker Non-prescribed substance use: denies use Previous occupational history: disabled Known occupational exposures/hazards details: disabled Highest level of school completed/degree received: Master's degree Are you now , , , , never or living with a partner: In a typical week, how many times do you talk on the telephone with family, friends, or neighbors: 3 or more times per week How often do you get together with friends or relatives: twice per week How often do you attend christianity or anglican services: 4 or more times per year Do you belong to any clubs or organizations such as christianity groups unions, [employer] or athletic groups, or school groups: no Total score: 3 Score interpretation: A score of greater than or equal to 2 indicates the lowest level of social isolation. Little interest or pleasure in doing things: not at all Feeling down, depressed, or hopeless: not at all Feel stressed/tense/nervous/anxious/difficulty sleeping: to some extent Do you think of yourself as: straight/heterosexual Gender Identity: female Exam Constitutional Vital Signs, click to edit/add: Last Vital Signs Temp 98.6 F 12/07/24 14:19 Pulse 65 12/07/24 17:35 Resp 12 12/07/24 17:35 BP 116/72 12/07/24 17:35 Pulse Ox 98 12/07/24 17:35 O2 Del Method Room Air 12/07/24 17:35 Common normals: no apparent distress and oriented x3 General appearance: cooperative HENMT Common normals: moist oral mucous membranes Eye Common normals: conjunctivae normal and no scleral icterus Respiratory Common normals: normal respiratory effort Effort & inspection: able to speak in complete sentences and symmetric chest movement Cardio Common normals: regular rate and regular rhythm GI Common normals: soft to palpation and non-tender Neuro Common normals: oriented x3 and moves all extremities Sensorium/orientation: awake and alert Speech: speech normal Course Vital Signs Vital signs: Vital Signs Pulse Oximetry 99 12/07/24 14:17 Temperature 98.6 F 12/07/24 14:19 Pulse Rate 65 12/07/24 17:35 Respiratory Rate 12 12/07/24 17:35 Blood Pressure 116/72 12/07/24 17:35 Pulse Oximetry 98 12/07/24 17:35 Oxygen Delivery Method Room Air 12/07/24 17:35 Medical Decision Making MDM Narrative Medical decision making narrative: Troponin was unremarkable x2. CTA chest showed no acute findings; see below. The patient was given Zofran, Compazine, Benadryl, morphine, and Dilaudid with improvement in her symptoms. Findings were discussed. Follow up with pcp and cardiology for a recheck, further evaluation and treatment. HEART Score for Major Cardiac Events from [email or web address] on 12/07/2024 All calculations should be rechecked by clinician prior to use RESULT SUMMARY: 2 points Low Score (0-3 points) Risk of MACE of 0.9-1.7%. INPUTS: History ?> 0 = Slightly suspicious EKG ?> 0 = Normal Age ?> 0 = <45 Risk factors ?> 2 = >= risk factors or history of atherosclerotic disease Initial troponin ?> 0 = <=ormal limit Medical Records Medical records reviewed: Yes I reviewed the patient's medical records Lab Data Lab results reviewed: Yes I reviewed the patient's lab results Labs: Lab Results 12/07/24 12/07/24 12/07/24 Range/Units 14:25 14:51 16:25 WBC 4.5 (4.0-11.0) 10^3/uL RBC 3.59 L (4.20-5.40) 10^6/uL Hgb 10.4 L (12.0-16.0) g/dL Hct 31.9 L (36.0-48.0) % MCV 88.9 (81.0-99.0) fL MCH 29.0 (26.7-34.0) pg MCHC 32.6 (29.9-35.2) g/dL RDW 14.0 (11.0-15.0) % Plt Count 184 (150-450) 10^3/uL MPV 11.5 (9.5-13.5) fL Neut % (Auto) 39.6 L (43.0-75.0) % Lymph % (Auto) 47.3 (20.5-60.0) % Desha % (Auto) 9.0 (1.7-12.0) % Eos % (Auto) 3.4 (0.9-7.0) % Baso % (Auto) 0.7 (0.2-2.0) % Neut # (Auto) 1.8 (1.4-6.5) 10^3/uL Lymph # (Auto) 2.1 (1.2-3.8) 10^3/uL Desha # (Auto) 0.4 (0.3-0.8) 10^3/uL Eos # (Auto) 0.2 (0.0-0.7) 10^3/uL Baso # (Auto) 0.0 (0.0-0.1) 10^3/uL Abs Immat Gran (auto) 0.00 (0.00-0.03) 10^3/uL Imm/Tot Granulo (auto) 0.0 (0.0-0.5) % Sodium 143 (136-145) mmol/L Potassium 4.0 (3.5-5.1) mmol/L Chloride 108 H (98-107) mmol/L Carbon Dioxide 26.6 (21.0-32.0) mmol/L Anion Gap 12.4 BUN 7.0 (7.0-18.0) mg/dL Creatinine 0.86 (0.55-1.02) mg/dL Est GFR ( Amer) >60 (>=60 mL/min/1.73m^2) Est GFR (Non-Af Amer) >60 (>=60 mL/min/1.73m^2) BUN/Creatinine Ratio 8.1 Glucose 85 (74-106) mg/dL Calcium 8.2 L (8.5-10.1) mg/dL Total Bilirubin 0.3 (0.2-1.0) mg/dL Direct Bilirubin 0.1 (0.0-0.2) mg/dL AST 74 H (15-37) U/L ALT 60 H (14-59) U/L Alkaline Phosphatase 79 (46-116) U/L Troponin I High Sens 4.4 4.0 (4.0-51.3) pg/mL Total Protein 6.7 (6.4-8.2) g/dL Albumin 3.4 (3.4-5.0) g/dL Globulin 3.3 g/dL Albumin/Globulin Ratio 1.0 Urine Color Dk orange A (YELLOW) Urine Clarity Clear (CLEAR) Urine pH Color interference A (5.0-9.0) Ur Specific Allen 1.025 (1.005-1.025) Urine Protein Color interference A (NEG/TRACE) mg/dL Urine Glucose (UA) Color interference A (NEGATIVE) mg/dL Urine Ketones Color interference A (NEGATIVE) mg/dL Urine Occult Blood Color interference A (NEGATIVE) Urine Nitrite Color interference A (NEGATIVE) Urine Bilirubin Color interference A (NEGATIVE) Urine Urobilinogen Color interference A (0.2-1.0) EU/dL Ur Leukocyte Esterase Color interference A (NEGATIVE) Urine RBC 2-5 A (0-2) #/HPF Urine WBC 5-10 A (NONE SEEN) #/HPF Ur Squamous Epith Cells Few A (NONE/RARE) #/LPF Urine Crystals None seen (None Seen) #/HPF Urine Bacteria Trace A (NONE SEEN) #/HPF Urine Casts None seen (NONE SEEN) #/LPF Urine Mucus None seen (NONE SEEN) Ur Culture Indicated? Yes-[facility] [place] Imaging Data Chest x-ray: Attestation: I have reviewed the pertinent imaging results. Radiologist's impression: ITS Impressions Chest X-Ray 12/07/24 14:25 IMPRESSION: No acute cardiopulmonary pathology. Impression dictated by: Roddy Hutchinson M.D. 12/07/2024 3:58 PM Dictation Location[facility] Electronically authenticated by: [id number] Y Date: 12/07/2024 15:58 Chest CTA 12/07/24 15:10 IMPRESSION: Negative for acute pleural-parenchymal disease. No definite aortic dissection or central pulmonary emboli. Impression dictated by: Tio Lundberg M.D. 12/07/2024 4:38 PM Dictation [facility] Electron[facility] authenticated by: [id number] Y Date: 12/07/2024 16:38 ECG Data Attestation: ?I have reviewed the pertinent ECG results. (EKG was reviewed by the attending physician. It showed sinus rhythm at a rate of 64. No acute ST segment changes. ) Interpretation: Measurements Intervals [place] Rate: 64 P: 72 ID: 128 QRS: 84 QRSD: 84 T: 46 QT: 428 QTc: 438 Interpretive Statements 1100 Sinus rhythm 9110 normal ECG No previous ECG available for comparison Discharge Plan Discharge Chief Complaint: Chest Pain Clinical Impression: Nausea & vomiting Chest pain Qualifiers: Chest pain type: other chest pain Qualified Code(s): R07.89 - Other chest pain Patient Disposition: Home, Self-Care Time of Disposition Decision: 17:12 Condition: Good Mode of Transportation: Private Vehicle Prescriptions / Home Meds: No Action (DME) blood-glucose meter [OneTouch Ultra2 Meter] [facility] [place] MISCELLANEOUS (DME) OneTouch Ultra Test Strip MISCELLANEOUS fentanyl 25 mcg/hr patch 72 hour 1 patch transdermal Q72H (DME) FreeStyle Hunter 3 Plus Sensor Device MISCELLANEOUS hydrocodone-acetaminophen 5-325 mg tablet 1 tab PO Q6H PRN (Reason: pain) (DME) lancets [OneTouch Delica Plus Lancet] 30 gauge [facility] [place]ISCELLANEOUS (DME) pen needle, diabetic [BD Stefania 2nd Gen Pen Needle] 32 gauge x 5/32 needle MISCELLANEOUS prucalopride 2 mg tablet 2 mg PO DAILY trazodone 100 mg tablet 100 mg PO .qhs mirtazapine 45 mg tablet 45 mg PO BEDTIME aspirin 81 mg tablet,chewable 1 tab PO .qd Rx Instructions: with breakfast clopidogrel 75 mg tablet 75 mg PO .qd colchicine 0.6 mg tablet 0.3 mg PO .qod fentanyl 12 mcg/hr patch 72 hour 1 patch transdermal Q72H metoprolol succinate 25 mg tablet extended release 24 hr 25 mg PO .qd ranolazine 500 mg tablet extended release 12 hr 500 mg PO Q12H rosuvastatin 40 mg tablet 40 mg PO .qhs verapamil 40 mg tablet 40 mg PO Q8H methocarbamol 500 mg tablet 750 mg PO Q6H PRN (Reason: Muscle spasm) hydroxyzine HCl 25 mg tablet 25 mg PO BID PRN (Reason: anxiety) topiramate 100 mg tablet 100 mg PO BID metoclopramide HCl 10 mg tablet 10 mg PO BID PRN (Reason: nausea and vomiting) levothyroxine 75 mcg tablet 75 mcg PO DAILY escitalopram oxalate 20 mg tablet 20 mg PO DAILY acetaminophen [Pain Relief (acetaminophen)] 325 mg tablet 650 mg PO Q4H PRN (Reason: pain) ergocalciferol (vitamin D2) 1,250 mcg (50,000 unit) capsule 1,250 mcg PO .Q7 meloxicam 7.5 mg tablet 7.5 mg PO DAILY PRN (Reason: pain) Qty: 3 0RF Rx Instructions: please take with food Print Language: Irish Instructions: Chest Pain (ED), Acute Nausea and Vomiting (ED) Additional Instructions: Follow up with your cardiopulmonary physical therapist. Return to the ED for worsening symptoms. Referrals: Thomas Alas MD [Primary Care Provider, Family Practice] - 1 week Discharge Date/Time: 12/07/24 17:35
--- NOTE | 2024-12-07 14:25 | XR_ITS ---
The [address] [address] Patient Name: JUAN KONG MRN: [id number] date: 1990 Sex: F Assigned Patient Location: ER Current Patient Location: ER Accession/Order Number: [id number] Exam Date: 12/07/2024 15:15 Report Date: 12/07/2024 15:58 At the request of: RONDA FERNANDEZ Procedure: XR chest 1V XR chest 1V 12/07/2024 3:19 PM SIGNS AND SYMPTOMS: ^CP PROTOCOL: Frontal radiograph of the chest COMPARISON: 11/19/2024 FINDINGS: The trachea is midline. There is a catheter projecting over the right-sided mediastinum with tip in the expected location of the superior vena cava. The heart and mediastinal structures are within normal limits. The lung parenchyma is clear. The bony thorax is intact. XR/XR chest 1V IMPRESSION: No acute cardiopulmonary pathology. Impression dictated by: Roddy Hutchinson M.D. 12/07/2024 3:58 PM Dictation Location[facility] Electronically authenticated by: [id number] Y Date: 12/07/2024 15:58
[2024-12-07 14:43] LABS: Hematocrit 31.9 % (36.0-48.0); Hemoglobin 10.4 g/dL (12.0-16.0); Immature Granulocytes Abs Auto 0.00 10^3/uL (0.00-0.03); Immature Granulocytes Pct Auto 0.0 % (0.0-0.5); Lymphocytes Absolute Auto 2.1 10^3/uL (1.2-3.8); Mean Corpuscular HGB Conc 32.6 g/dL (29.9-35.2); Mean Corpuscular Hemoglobin 29.0 pg (26.7-34.0); Mean Corpuscular Volume 88.9 fL (81.0-99.0); Platelet Count 184 10^3/uL (150-450); Red Blood Count 3.59 10^6/uL (4.20-5.40); White Blood Count 4.5 10^3/uL (4.0-11.0)
[2024-12-07] MEDS: DIPHENHYDRAMINE HCL 50 MG/ML VIAL 25 MG IVP ×2 (14:46→17:05)
[2024-12-07] MEDS: MORPHINE SULFATE 2 MG/ML SYRINGE IV (14:48)
[2024-12-07 15:04] LABS: Anion Gap 12.4; Blood Urea Nitrogen 7.0 mg/dL (7.0-18.0); Calcium 8.2 mg/dL (8.5-10.1); Carbon Dioxide 26.6 mmol/L (21.0-32.0); Chloride 108 mmol/L (98-107); Estimated GFR (African America >60 (>=60 mL/min/1.73m^2); Estimated GFR (Non-African Ame >60 (>=60 mL/min/1.73m^2); Glucose 85 mg/dL (74-106); Potassium 4.0 mmol/L (3.5-5.1); Sodium 143 mmol/L (136-145)
[2024-12-07 15:07] LABS: Glucose Urine UA COLOR INTERFERENCE mg/dL (NEGATIVE)
--- NOTE | 2024-12-07 15:10 | CT_ITS ---
The [address] [address] Patient Name: JUAN KONG MRN: [id number] date: 1990 Sex: F Assigned Patient Location: ER Current Patient Location: ER Accession/Order Number: [id number] Exam Date: 12/07/2024 15:42 Report Date: 12/07/2024 16:38 At the request of: RONDA FERNANDEZ Procedure: CT angio chest CTA chest CLINICAL DATA: Chest pain radiating to the back/left shoulder. TECHNIQUE: Intravenous contrast-enhanced CT angiography of the chest was performed. Axial, sagittal, coronal, and 3D-dimensional reconstructions were created and reviewed. These CT exams were performed using one or more of the following dose reduction techniques: Automated exposure control, adjustment of the mA and/or kV according to patient size, or use of iterative reconstruction technique. COMPARISON: 11/14/2024. FINDINGS: Chest: Mediastinum:Less than optimal bolus evaluate for aortic dissection. No definite aortic dissection flap or aneurysmal dilatation of the aorta. No evidence of Central to segmental branch pulmonary emboli. No pericardial effusion. No bulky adenopathy. Lungs:Hypoventilatory changes no airspace opacity effusion or pneumothorax. Abd: Spleen is prominent. Multifocal cysts involving the liver. Spleen appears prominent. Gastric bypass partially visualized.[ Soft tissues/Bones: Minimal spurring involving the thoracic spine. CT/CT angio chest IMPRESSION: Negative for acute pleural-parenchymal disease. No definite aortic dissection or central pulmonary emboli. Impression dictated by: Tio Lundberg M.D. 12/07/2024 4:38 PM Dictation Location: [place] [address] Electronically authenticated by: [id number] Y Date: 12/07/2024 16:38
[2024-12-07 15:17] LABS: Cast Seen? NONE SEEN #/LPF (NONE SEEN); Crystals Seen? None Seen #/HPF (None Seen); Urine Culture Indicated YES-FRMC
--- NOTE | 2024-12-07 15:22 | ECG_ITS ---
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 Measurements Intervals [place] Rate: 64 P: 72 SD: 128 QRS: 84 QRSD: 84 T: 46 QT: 428 QTc: 438 Interpretive Statements 1100 Sinus rhythm 9110 normal ECG Compared to ECG 11/21/2024 11:00:20 No significant changes Electronically Signed On 12-07-2024 19:20:01 EDT by JAMES HODGES M.D.
--- NOTE | 2024-12-07 15:23 | ECG_ITS ---
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 Measurements Intervals [place] Rate: 72 P: 69 IA: 124 QRS: 81 QRSD: 82 T: 37 QT: 412 QTc: 436 Interpretive Statements 1100 Sinus rhythm 9110 normal ECG Compared to ECG 12/07/2024 14:18:31 No significant changes Electronically Signed On 12-07-2024 19:20:04 EDT by JAMES HODGES M.D.
[2024-12-07 15:28] LABS: Alanine Aminotransferase 60 U/L (14-59); Albumin Globulin Ratio 1.0; Albumin Level 3.4 g/dL (3.4-5.0); Alkaline Phosphatase 79 U/L (46-116); Aspartate Amino Transferase 74 U/L (15-37); Globulin 3.3 g/dL; Total Protein 6.7 g/dL (6.4-8.2)
[2024-12-07] MEDS: HYDROMORPHONE HCL 0.5 MG/0.5 ML SYRINGE IV (15:31)
[2024-12-07] MEDS: PROCHLORPERAZINE 10 MG/2 ML VIAL IV (16:08)
== END 2024-12-07 17:35 | disposition home or self-care (01) ==
PROVIDERS: Nurse Practitioner Family; Emergency Provider Emergency Medicine; PCP Family Medicine
DX: R11.2 Nausea with vomiting, unspecified (principal); R07.89 Other chest pain; R06.02 Shortness of breath; K31.84 Gastroparesis; D62 Acute posthemorrhagic anemia
CPT/HCPCS: 36415; 71045; 71275; 80048; 80076; 81001; 84484; 85025; 87086; 87088; 87186; 93005; 96374; 96375; 96376; 99285; J0780; J1171; J1200; J2270; J2405; Q9967

== ENCOUNTER 2024-12-08 20:50 | Emergency (ER) | payer MEDICAID, SELFPAY ==
--- OUTSIDE RECORDS SUMMARY | 2024-10-31 05:45 | XMS_ITS ---
Author Organization The [facility] in [place] Address [address] [place] [address] Care Team Providers Care Transport Corps Officer Name Role Phone Brandyn Alas Primary Care Provider REASON FOR VISIT ER F/U Encounters Encounter Location Date Provider Diagnosis [facility] [address] [place] [address] 10/31/2024 Brandyn Alas Plan Of Treatment No Information Progress Notes * Abbey KONG MDOB:1990 (34 yo F)Acc No.[id number]:10/31/2024 UNLOCKED PROGRESS NOTE Progress Note Patient: Abbey OSBORNE :?Thomas Alas (TTC), MDDOB:1990???Age: 34 Y???Sex:FemaleDate:10/31/2024Phone:[phone]:[address] [place] [phone] Subjective: * Chief Complaints: * 1 . ER F/U. * Medical History: Objective: * Vitals: Assessment: Plan: * Treatment: * * Electronic signature of Brandyn Alas MD, [id number] on 12/08/2024 at 01:51 PM EDT Sign off status: PendingVisit Status:?N/S N/C (No Show/No Charge) * Provider: uD Alas MD (TTC) Date: 0 10/31/2024 Generated for Printing/Faxing/eTransmitting on:?12/08/2024 01:51 PM EDT
--- OUTSIDE RECORDS SUMMARY | 2024-11-03 10:15 | XMS_ITS ---
Author Organization [facility] Address [address] [facility] [place] [address] Care Team Providers Care Dental Appliance Fixer Name Role Phone Ashley Bryson Primary Care Provider Christina Dominguez Unavailable Unavailable REASON FOR VISIT DEBRIDEMENT Encounters Encounter Location Date Provider Diagnosis [facility] [address] [place] [address] 11/03/2024 Christina Dominguez Plan Of Treatment No Information Progress Notes * JUAN KONG MDOB:1990 (34 yo F)Acc No.[id number]:11/03/2024 Patient:?DILAN JUAN Flores :?Christina DominguezDOB:1990???Age:34 Y???Sex: FemaleDate:11/03/2024Phone:[phone]:[address] [place], [place] [phone]:Ashley Bryson Subjective: * Chief Complaints: * D EBRIDEMENT * Electronic signature of Christina Dominguez on 12/08/2024 at 01:49 PM EDTSign off status: Pending * Provider: Lesia Dominguez Date: 0 11/03/2024 Generated for Printing/Faxing/eTransmitting on:?12/08/2024 01:49 PM EDT
--- OUTSIDE RECORDS SUMMARY | 2024-11-21 06:00 | XMS_ITS ---
Author Organization The [facility] in [place] Address [address] [place] [address] Care Team Providers Care Consulting Practice Director Name Role Phone Brandyn Alas Primary Care Provider [phone] REASON FOR VISIT [facility] D/C- 10/3-R lower Quadrant Pain Encounters Encounter Location Date Provider Diagnosis [facility] [address] [place] [address] 11/21/2024 Brandyn Alas Plan Of Treatment No Information Progress Notes * Abbey KONG MDOB:1990 (34 yo F)Acc No.[id number]:11/21/2024 UNLOCKED PROGRESS NOTE Progress Note Patient: Abbey OSBORNE :?Thomas Alas (TTC), MDDOB:1990???Age: 34 Y???Sex:FemaleDate:11/21/2024Phone:[phone]:[address] [place] [phone] Subjective: * Chief Complaints: * 1 . [facility] D/C- 10/3-R lower Quadrant Pain. * Medical History: Objective: * Vitals: Assessment: Plan: * Treatment: * * Electronic signature of Brandyn Alas MD, [id number] on 12/08/2024 at 01:52 PM EDT Sign off status: PendingVisit Status:?CANC (Cancelled) * Provider: Du Alas ([facility])MD Date: 1 Generated for Printing/Faxing/eTransmitting on:?12/08/2024 01:52 PM EDT
--- OUTSIDE RECORDS SUMMARY | 2024-11-26 19:34 | XMS_ITS | Encounter Summary ---
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 Name Role Phone Thomas Alas MD Primary Care Provider [phone] Reason for Referral * (Emergency) - Pending ReviewSpecialtyDiagnoses / ProceduresReferred By Contact Referred To Contact Procedures ECG 12 lead Israel Jeong MD [address] [place] [address] Phone: tel: fax: Referral IDStatusReasonStart DateExpiration DateVisits RequestedVisits [id number] Reason for Visit * ReasonCommentsDifficulty UrinatingDizziness Encounter Details DateTypeDepartmentCare Team (Latest Contact Info)Hifyqavkdan64/12/2025 7:34 PM EDT - 11/26/2024 9:45 PM EDTEmergency [facility] Emergency [address] [place] [address] Israel Jeong MD [address] [place] [address] Acute UTI (Primary Dx) Discharge Disposition: Home or Self Care () Social History Tobacco UseTypesPacks/DayYears UsedDateSmoking Tobacco: NeverSmokeless Tobacco: NeverAlcohol UseStandard Drinks/WeekCommentsNot Currently0 (1 standard drink = 0.6 oz pure alcohol)[facility] UtilitiesAnswerDate RecordedIn the past 12 months [...] homeless or living in a penitentiary (including now)?No11/15/2024Hunger Vital SignAnswerDate RecordedWithin the past 12 months, you worried that your food would run out before you got the money to buymore.Never true11/15/2024Ran Out of Food in the Last YearNot on file 11/15/2024CommentsNoSex and Gender InformationValueDate RecordedSex Assigned at ZukkaKeewdx56/03/2025 3:45 PM EDTLegal JxfWvvcbf19/30/2022 12:07 AM EDTGender OxdnhrmcMitzib95/03/2025 3:45 PM EDTSexual OrientationHeterosexual or Wlgscvms63/03/2025 3:45 PM EDTdocumented as of this encounter Last Filed Vital Signs Vital SignReadingTime TakenCommentsBlood Xjoaqcmz105/6011/26/2024 9:25 PM EDT Hcvvw641711/26/2024 9:25 PM YINBlqudmvwbkk27.6 ??C (97.9 ??F)11/26/2024 7:34 PM EDTRespiratory Ycdy9593 9:25 PM EDTOxygen Pevauixmjb58%11/26/2024 9:25 PM EDTInhaled Oxygen Concentration--Vryzaz54.6 kg (180 lb)11/26/2024 7:34 PM EDT Aakefc146.6 cm (5' 6 )11/26/2024 7:34 PM EDTBody Mass Index29.0511/26/2024 7:34 PM EDTdocumented in this encounter Functional Status * QuestionAnswerDate of QjjstqwpkfWyyyhgXV296/6011/26/2024 9:25 PM Andie Bridges RNPulse7311/26/2024 9:25 PM Andie Bridges RN * [place]hi Fall RiskQuestionAnswerDate of AssessmentAuthorHistory of Falling, Immediate or Within 3 Gixiof225 7:34 PM Roseline Lopez RNSecondary Uhdwrmaqh984/12/2025 7:34 PM Roseline Lopez RNAmbulatory Cma306 7:34 PM Roseline Lopez RNIntravenous Therapy/Heparin Dvoh295 7:34 PM Roseline Lopez RNGait/Pxezmyketobu419/12/2025 7:34 PM Roseline Lopez RNMental Yhirxi731 7:34 PM Roseline Lopez RNMorse Fall Risk Ixpqv149 7:34 PM Roseline Lopez RN * Cyrus ScaleQuestionAnswerDate of AssessmentAuthorBraden No Risk Interventions Continue to assess patient according to level of care11/26/2024 8:30 PM EDT Andie Fletcher RNSensory Hlztldbvnbg859/12/2025 8:30 PM Andie Bridges RNMoisture41 8:30 PM Andie Bridges RNActivity4 11/26/2024 8:30 PM Andie Bridges RNMobility31 8:30 PM Andie Muhammad RNNutrition21 8:30 PM Andie Bridges RN Friction and Npwnt603 8:30 PM Andie Bridges RNBraden Scale Vyjzo3700/12/2025 8:30 PM Andie Bridges RN * Patient's Stated Pain GoalAnswerDate of AssessmentAuthorNo pain11/26/2024 9:33 PM Andie Bridges RN * [place] Fall Risk InterventionsQuestionAnswerDate of AssessmentAuthor [place] Fall Risk UiriwgtnxktelQktmdfiy37/12/2025 7:34 PM Roseline Lopez RN * Pain Assessment TimerQuestionAnswerDate of AssessmentAuthorRestart Pain Assessment OtvjrBie60/12/2025 9:33 PM Andie Bridges RN * In the past 12 months, have you used drugs other than those required for medical reasons?AnswerDate of QgukvspyenVblqud315/12/2025 7:35 PM Roseline Lopez RN * Sepsis Model ScoresQuestionAnswerDate of AssessmentAuthorEarly Detection of Sepsis Score1.4611/26/2024 9:31 PM EDTChelis, BatchqEarly Detection of Sepsis Hskzy068 9:31 PM EDGino Batchq * Pain AssessmentQuestionAnswerDate of AssessmentAuthorPain LocationAbdomen 11/26/2024 8:30 PM Andie Bridges RNPain JidlnlrcdvoAmdjy15/12/2025 8:30 PM Andie Bridges RNPain UycifxhsxfxkxOiutleudffeh99/12/2025 8:30 PM Andie Bridges RNPain DescriptorsPressure;Bgqryz9111/26/2024 8:30 PM Andie Bridges RNPain WvochKwarvjg59/12/2025 8:30 PM Andie Bridges RNPain TypeAcute pain11/26/2024 8:30 PM Andie Bridges RN Clinical ProgressionNot mgrrgzk4611/26/2024 8:30 PM Andie Bridges RNPain Assessment0-101 8:30 PM Andie Bridges RN * Pain ScoreAnswerDate of TbeewjxagyYlwesf285/12/2025 9:33 PM Andie Bridges RN * Audit [...] Andie Bridges RN * Vital SignsQuestionAnswerDate of XcgmhkgmwrQmrveqAX831/6011/26/2024 9:25 PM Andie Bridges RNTemp97.91 7:34 PM Roseline Lopez RNTemp ecwVcfz0411/26/2024 7:34 PM Roseline Lopez RNPulse7311/26/2024 9:25 PM [...] RNGastrointestinal (WDL)X1 8:30 PM Andie Bridges RNAbdomen PpqwarwhjyDpyg30/12/2025 8:30 PM EDT Andie Fletcher RNGastrointestinal SymptomsNausea;Sjtzjdoo43/12/2025 8:30 PM Andie Bridges RNBowel SoundsAll bqfarplla13/12/2025 8:30 PM EDT Andie Fletcher RN * Peripheral VascularQuestionAnswerDate of AssessmentAuthorPeripheral Vascular (WDL)WDL1 8:30 PM Andie Bridges RN * MusculoskeletalQuestionAnswerDate of AssessmentAuthorMusculoskeletal (WDL)WDL 11/26/2024 8:30 PM Andie Bridges RN * PsychosocialQuestionAnswerDate of AssessmentAuthorPsychosocial (WDL)WDL 11/26/2024 8:30 PM Andie Bridges RN * [place] Fall RiskQuestionAnswerDate of AssessmentAuthorHistory of Falling, Immediate or Within 3 Jwucwd791 7:34 PM Roseline Lopez RNSecondary Ommksnfsj335/12/2025 7:34 PM Roseline Lopez RNAmbulatory Afm794 7:34 PM Roseline Lopez RNIntravenous Therapy/Heparin Yrai980 7:34 PM Roseline Lopez RNGait/Frlwhqwauxyo157/12/2025 7:34 PM Roseline Lopez RNMental Oqprqt419/12/2025 7:34 PM Roseline Lopez RNMorse Fall Risk Dqfjq132 7:34 PM Roseline Lopez RN * Cyrus ScaleQuestionAnswerDate of AssessmentAuthorBraden No Risk Interventions Continue to assess patient according to level of care11/26/2024 8:30 PM EDT Andie Fletcher, RNSensory Oswmtfqqvxg033/12/2025 8:30 PM Andie Bridges RNMoisture41 8:30 PM Andie Bridges, RNActivity4 11/26/2024 8:30 PM Andie Bridges RNMobility31 8:30 PM EDT Andie Fletcher RNNutrition21 8:30 PM Andie Bridges RN Friction and Qzlbh645 8:30 PM Andie Bridges RNBraden Scale Rsgnc2264 8:30 PM Andie Bridges RN * CardiacQuestionAnswerDate of AssessmentAuthorCardiac (WDL)WDL1 8:30 PM Andie Bridges RN * RespiratoryQuestionAnswerDate of AssessmentAuthorRespiratory (WDL)WDL 11/26/2024 8:30 PM Andie Bridges RN * Charting TypeQuestionAnswerDate of AssessmentAuthorCharting TypeShift pwpyuaeens52/12/2025 8:30 PM Andie Bridges RN * Patient's Stated Pain GoalAnswerDate of AssessmentAuthorNo pain11/26/2024 9:33 PM Andie Bridges RN * GenitourinaryQuestionAnswerDate of AssessmentAuthorGenitourinary (WDL)X 11/26/2024 8:30 PM Andie Bridges RN * NeurologicalQuestionAnswerDate of AssessmentAuthorNeuro (WDL)WDL1 8:30 PM Andie Bridges RN * [place] Fall Risk InterventionsQuestionAnswerDate of AssessmentAuthor [place] Fall Risk NijzagqdrqicdUkdrpesi73/12/2025 7:34 PM Roseline Lopez RN * [place] Coma ScaleQuestionAnswerDate of AssessmentAuthorBest Eye Response Ityrslafbix80/12/2025 8:30 PM Andie Bridges RNBest Verbal Response Nytoknnt17/12/2025 8:30 PM Andie Bridges RNBest Motor ResponseFollows rtjiephz62/12/2025 8:30 PM Andie Bridges RNGlasgow Coma Scale Score15 11/26/2024 8:30 PM Andie Bridges RN * Pain AssessmentQuestionAnswerDate of AssessmentAuthorPain LocationAbdomen 11/26/2024 8:30 PM Andie Bridges RNPain NyfvacgeoydPncsy64/12/2025 8:30 PM Andie Bridges RNPain XxzymifzjbdmvBtaxqqkrjehe53/12/2025 8:30 PM Andie Bridges RNPain DescriptorsPressure;Ngnnkp0811/26/2024 8:30 PM Andie Bridges RNPain NbcwkMixupit83/12/2025 8:30 PM Andie Bridges RNPain TypeAcute pain11/26/2024 8:30 PM Andie Bridges RN Clinical ProgressionNot esiicin8611/26/2024 8:30 PM Andie Bridges RNPain Assessment0-101 8:30 PM Andie Bridges RN * IntegumentaryQuestionAnswerDate of AssessmentAuthorSkin ColorAppropriate for race11/26/2024 8:30 PM Andie Bridges RNSkin Condition/TempWarm;Dry 11/26/2024 8:30 PM Andie Bridges RNIntegumentary (WDL)X1 8:30 PM Andie Bridges RN * Pain ScoreAnswerDate of FvbqenuoexVcfxhc364/12/2025 9:33 PM Andie Bridges RN * [place] Suicide Severity Rating ScaleQuestionAnswerDate of AssessmentAuthor1. Have [...] Care Everywhere. * Urinary Tract Infection Adult ([place]) documented in this encounter Medications at Time [...] the skin every 3rd (third) day. HYDROcodone-acetaminophen (Marshall) 5-325 mg tablet Take 2 tablets by [...] Course & MDM Diagnoses as of 11/26/24 9702 Acute UTI Medical Decision Making The patient [...] Urine Normal Bilirubin, Urine Small (*) Specific [place], Urine 1.018 Ketones, Urine Negative Blood, Urine [...] Procedure Abnormality Status --------- ------ CBC auto differential[[id number]] Abnormal Final result Please view results for [...] HYDROcodone-acetaminophen 5-325 mg tablet Commonly known as: [place] hydrocortisone 10 mg tablet Commonly known as: [...] Your Medications These medications were sent to [facility]/pharmacy #[id number] - [place], [place] - [address] [facility] [address] [address] cefpodoxime 200 mg tablet Diagnosis: 1. Acute [...] signing this emergency patient record, the Emergency Physician/SPINNING MACHINE OPERATOR/PA-C attests that all entries made into the electronic medical record by the scribe prior to the Physician/SPINNING MACHINE OPERATOR/PA-C signature reflect an accurate accounting of the evaluation and care rendered by that Emergency Physician/SPINNING MACHINE OPERATOR/PA-C. The Emergency Physician/SPINNING MACHINE OPERATOR/PA-C assumes full responsibility for those entries. The Emergency Physician/SPINNING MACHINE OPERATOR/PA-C also attests that any patient [...] Drug use: Never Israel Jeong MD 11/26/24 6958 * Roseline Matos RN - 11/26/2024 7:32 PM EDT Pt arrives for urinary problems. Pt claims she has a catheter and is not able to urinate. Pt also reports dizziness that has been going on for a few days. documented in this encounter Plan of Treatment DateTypeDepartmentCare Team (Latest Contact Info)Kswqdhavcjw50/30/2025 9:00 AM EDTAppointment [facility] [address] [place] [phone] Braxton Bellamy MD [address] [facility] [place] [address] 12/14/2024 10:30 AM EDTAppointment [facility] X-Ray Imaging [address] [place] [address] 01/31/2025 11:00 AM ESTOffice Visit [facility] [address] [place] [facility] [place] [address] Wali Collins MD [address] [place] [address] documented as of this encounter Procedures Procedure NamePriorityDate/TimeAssociated DiagnosisCommentsURINALYSIS MICROSCOPIC WITH REFLEX RAXPBGLGSZF37/12/2025 8:27 PM EDT URINALYSIS WITH REFLEX KSGDBZPSFKK68/12/2025 8:27 PM EDT SERUM RMXUSLNCDFWUBSH60/12/2025 8:27 PM EDT XR CHEST 1 HTKETNSC50/12/2025 8:17 PM EDT ECG 12-VZXAFZZY64/12/2025 8:13 PM EDT HIGH SENSITIVITY TROPONIN ISTAT1 8:05 PM EDT CBC WITH AUTO IWUXEHKIUXIVBNMG79/12/2025 8:05 PM EDT CBC AND LGEOUIYDVOGUDWZO54/12/2025 8:05 PM EDT VNBQYZUNEZ44/12/2025 8:05 PM EDT COMPREHENSIVE METABOLIC FSKSWPLTJ15/12/2025 8:05 PM EDT documented in this encounter Results * Urinalysis microscopic with reflex culture (11/26/2024 8:27 PM EDT)Component ValueRef RangeTest MethodAnalysis TimePerformed AtPathologist SignatureRBC, Urine0-2None Seen, 0-2 /HPF11/26/2024 8:52 PM [facility] ([facility]) WBC, Urine0-2None Seen, 0-2 /HPF11/26/2024 8:52 PM [facility] ([facility])Squamous Epithelial, UrineNone SeenNone Seen, Occasional, Few /LPF 11/26/2024 8:52 PM [facility] ([facility])Mucus, UrineOccasionalNone Seen, Occasional, Few /LP11/26/2024 8:52 PM [facility] ([facility]) Specimen (Source)Anatomical Location / LateralityCollection Method / Volume Collection TimeReceived TimeUrineUrine specimen obtained by clean catch procedure / UnknownNon-blood Collection / Vmbfpjt4411/26/2024 8:27 PM EDT 11/26/2024 8:33 PM EDT Narrative Authorizing ProviderResult TypeResult StatusDustin Jean-Paul UTCECY URINE ORDERABLES Final ResultPerforming OrganizationAddressCity/State/ZIP CodePhone Number [facility]) [address] [place] [address] * Serum Qualitative (11/26/2024 8:27 PM EDT)ComponentValueRef Range Test MethodAnalysis TimePerformed AtPathologist SignaturehCG, SerumNegative 11/26/2024 8:51 PM [facility] ([facility])Specimen (Source)Anatomical Location / LateralityCollection Method / VolumeCollection TimeReceived Time BloodVenous blood specimen / UnknownExisting Catheter / Felonkb9711/26/2024 8:27 PM EDT1 8:33 PM EDT Narrative Authorizing ProviderResult TypeResult StatusDustin Jean-Paul UTCECY BLOOD ORDERABLES Final ResultPerforming OrganizationAddressCity/State/ZIP CodePhone Number [facility]) [address] [place] [address] * (ABNORMAL) Urinalysis with reflex culture (11/26/2024 8:27 PM EDT)Component ValueRef RangeTest MethodAnalysis TimePerformed AtPathologist SignatureColor, UrineDark-Yellow(A)Colorless, Yellow, Light-Bgytqd3211/26/2024 8:52 PM [facility] ([facility])Clarity, NlfwlYktmsWysha54/12/2025 8:52 PM [facility] ([facility])pH, Urine7.05.0 - 8.0 pH11/26/2024 8:52 PM [facility] ([facility])Leukocytes, UrineTrace(A)Ywwtafml36/12/2025 8:52 PM [facility] ([facility])Nitrite, UrinePositive(A)Soxbqdjq65/12/2025 8:52 PM [facility] ([facility])Protein, UrineNegativeNegative mg/dL11/26/2024 8:52 PM [facility] ([facility])Glucose, UrineNormalNormal mg/dL 11/26/2024 8:52 PM [facility] ([facility])Bilirubin, UrineSmall(A) Fqwvexsp77/12/2025 8:52 PM [facility] ([facility])Specific [place], Urine1.0181.010 - 1.8467411/26/2024 8:52 PM [facility] ([facility]) Ketones, UrineNegativeNegative mg/dL11/26/2024 8:52 PM [facility] ([facility])Blood, UjmupJvihpkejAznzgnkd51/12/2025 8:52 PM [facility] ([facility])Urobilinogen, Urine4.0(A)Normal mg/dL11/26/2024 8:52 PM [facility] ([facility])Specimen (Source)Anatomical Location / Laterality Collection Method / VolumeCollection TimeReceived TimeUrineUrine specimen obtained by clean catch procedure / UnknownNon-blood Collection / Unknown 11/26/2024 8:27 PM EDT1 8:33 PM EDT Narrative Authorizing ProviderResult TypeResult StatusDustin Jean-Paul ANNIKA URINE ORDERABLES Final ResultPerforming OrganizationAddressCity/State/ZIP CodePhone Number [facility]) [address] [place] [address] * XR chest 1 view (11/26/2024 8:17 [...] PM EDT)ComponentValueRef RangeTest MethodAnalysis TimePerformed AtPathologist SignatureVentricular Esxc22BIPEL MUSEAtrial Rate 70BPMGE MUSEPR Wlfzuoka898ezZN MUSEQRS LMUQRGHG97caHH MUSEQT Poqmfmfk175ydTN MUSEQTC CALCULATION([place])470msGE MUSEP Yubr46bqikltpCH MUSER-Xoxa32tpqoxpxFV MUSET Wave Byju73bjwuxzzZS MUSESpecimen (Source)Anatomical Location / LateralityCollection Method / [...] SignatureAuto WBC5.234.00 - 10.60 10*3/uL11/26/2024 8:18 PM [facility] ([facility])RBC3.37(L)3.80 - 5.00 10*6/uL11/26/2024 8:18 PM [facility] ([facility])Hemoglobin9.9 (L)12.0 - 15.0 g/dL11/26/2024 8:18 PM [facility] ([facility])Hematocrit 29.9(L)36.0 - 45.0 %11/26/2024 8:18 PM [facility] ([facility])MCV88.7 82.0 - 98.0 fL11/26/2024 8:18 PM [facility] ([facility])MCH29.427.0 - 33.0 pg11/26/2024 8:18 PM [facility] ([facility])MCHC33.132.0 - 35.0 g/dL11/26/2024 8:18 PM [facility] ([facility])RDW14.011.5 - 15.0 % 11/26/2024 8:18 PM [facility] ([facility])Neutrophils %44.540.0 - 72.0 % 11/26/2024 8:18 PM [facility] ([facility])Lymphocytes %40.520.0 - 45.0 % 11/26/2024 8:18 PM [facility] ([facility])Monocytes %10.95.0 - 12.0 % 11/26/2024 8:18 PM [facility] ([facility])Eosinophils %3.10.0 - 6.0 % 11/26/2024 8:18 PM [facility] ([facility])Basophils %0.80.0 - 1.0 % 11/26/2024 8:18 PM [facility] ([facility])Neutrophils Absolute2.331.60 - 7.60 10*3/uL11/26/2024 8:18 PM [facility] ([facility])Lymphocytes Absolute2.121.20 - 4.00 10*3/uL11/26/2024 8:18 PM [facility] ([facility])Monocytes Absolute0.570.10 - 1.00 10*3/uL11/26/2024 8:18 PM [facility] ([facility])Eosinophils Absolute0.160.00 - 0.50 10*3/uL11/26/2024 8:18 PM [facility] ([facility])Basophils Absolute0.040.00 - 0.20 10*3/uL 11/26/2024 8:18 PM [facility] ([facility])Kclbmufzw794176 - 400 10*3/uL 11/26/2024 8:18 PM [facility] ([facility])nRBC %0.00 %11/26/2024 8:18 PM [facility] ([facility])Immature Granulocytes %0.20.0 - 1.0 %11/26/2024 8:18 PM [facility] ([facility])Immature Granulocytes Absolute0.010.00 - 0.20 10*3/uL11/26/2024 8:18 PM [facility] ([facility])Specimen (Source) Anatomical Location / LateralityCollection Method / VolumeCollection Time Received TimeBloodVenous blood specimen / UnknownExisting Catheter / Unknown 11/26/2024 8:05 PM EDT1 8:13 PM EDT Narrative Authorizing ProviderResult TypeResult StatusDustin Jean-Paul ANNIKA BLOOD ORDERABLES Final ResultPerforming OrganizationAddressCity/State/ZIP CodePhone Number [facility]) [address] [place] [address] * HS Troponin I (11/26/2024 8:05 PM EDT)ComponentValueRef RangeTest Method Analysis TimePerformed AtPathologist SignatureHigh Sensitivity Troponin I<2<15 ng/L1 8:42 PM [facility] ([facility])Specimen (Source) Anatomical Location / LateralityCollection Method / VolumeCollection Time Received TimeBloodVenous blood specimen / UnknownExisting Catheter / Unknown 11/26/2024 8:05 PM EDT1 8:13 PM EDT Narrative Authorizing ProviderResult TypeResult StatusDustin Jean-Paulladi ROBLERO BLOOD ORDERABLES Final ResultPerforming OrganizationAddressCity/State/ZIP CodePhone Number [facility]) [address] [place] [address] * Lipase (11/26/2024 8:05 PM EDT)ComponentValueRef RangeTest MethodAnalysis Time Performed AtPathologist FozchaomsRajfnh4701 - 82 U/L1 8:36 PM [facility])Specimen (Source)Anatomical Location / Laterality Collection Method / VolumeCollection TimeReceived TimeBloodVenous blood specimen / UnknownExisting Catheter / Qvbqzrz6711/26/2024 8:05 PM EDT1 8:13 PM EDT Narrative Authorizing ProviderResult TypeResult StatusDustin Jean-Paul ANNIKA BLOOD ORDERABLES Final ResultPerforming OrganizationAddressCity/State/ZIP CodePhone Number [facility] ([facility]) [address] [place] [address] * (ABNORMAL) Comprehensive metabolic panel (11/26/2024 8:05 PM EDT)Component ValueRef RangeTest MethodAnalysis TimePerformed AtPathologist SignatureSodium 918753 - 145 mmol/L1 8:36 PM [facility] ([facility])Potassium 3.73.5 - 5.1 mmol/L1 8:36 PM [facility] ([facility])Setaoelb593 (H)98 - 107 mmol/L1 8:36 PM [facility] ([facility])HG42864 - 31 mmol/L1 8:36 PM [facility] ([facility])Anion Gap97 - 20 mmol/L 11/26/2024 8:36 PM [facility] ([facility])BUN97 - 25 mg/dL11/26/2024 8:36 PM [facility] ([facility])Creatinine0.59(L)0.60 - 1.20 mg/dL 11/26/2024 8:36 PM [facility] ([facility])BUN/Creatinine Ratio15.3 11/26/2024 8:36 PM [facility] ([facility])Tfgapxa7700 - 100 mg/dL 11/26/2024 8:36 PM [facility] ([facility])Calcium7.4(L)8.6 - 10.3 mg/dL 11/26/2024 8:36 PM [facility] ([facility])MFP0616 - 39 U/L1 8:36 PM [facility] ([facility])ALT (SGPT)127 - 52 U/L1 8:36 PM [facility] ([facility])Alkaline Ztdcvvslpgh4716 - 104 U/L1 8:36 PM [facility] ([facility])Total Protein5.6(L)6.0 - 8.3 g/dL11/26/2024 8:36 PM [facility] ([facility])Albumin3.63.5 - 5.7 g/dL11/26/2024 8:36 PM [facility] ([facility])Total Bilirubin0.2(L)0.3 - 1.0 mg/dL11/26/2024 8:36 PM [facility] ([facility])zRJO308.5>60.0 mL/min/1.73m* 8:36 PM [facility] ([facility])Comment:[facility]???s estimated glomerular filtration rate (eGFR) will [...] TimeBloodVenous blood specimen / UnknownExisting Catheter / Rokmkfx7111/26/2024 8:05 PM EDT1 8:13 PM EDT Narrative Authorizing ProviderResult TypeResult StatusDustin Jean-Paul ANNIKA BLOOD ORDERABLES Final ResultPerforming OrganizationAddressCity/State/ZIP CodePhone Number [facility] [address] [place] [address] documented in this encounter Visit Diagnoses Diagnosis Acute UTI- Primary Urinary tract infection, site not specified documented in this encounter Administered Medications Medication OrderMAR ActionAction DateDoseRateSite cefpodoxime (Vantin) tablet 200 mg 200 mg, oral, Once, On 11/26/24 at 2115, For 1 dose, Suspected Indication (Select all that apply): Urinary Tract Infection, Type of Urinary Tract Infection: Uncomplicated Given11/26/2024 9:33 PM CWU399 mg diphenhydrAMINE (BENADryl) injection 25 mg 25 [...] Teams Team MemberRelationshipSpecialtyStart DateEnd Thomas Alas MD [address] [place], [place] [id number] PCP - GeneralFamily Medicine08/17/24documented as of this encounter
--- OUTSIDE RECORDS SUMMARY | 2024-12-06 11:20 | XMS_ITS | Encounter Summary ---
Author Organization [facility] Address [address] [place] [address] Care Team Providers Care Election Clerk Name Role Phone Thomas Alas MD Primary Care Provider [phone] Reason for Visit * ReasonCommentsFollow-upPatient is here today for a follow up [facility] admission and for surgery clearance. Patient is having an ERCP with Dr. Bellamy at [facility]. Needs to stop plavix for 5 days.Chest PainChest pain with and without activity HypertensionHyperlipidemiaNSTEMISpontaneous dissection of the coronary artery Congestive Heart FailureIdiopathic hypotensionFatiguePatient states she has extreme fatigue.Shortness of BreathIncreased sob/doeDizziness Dizziness/lightheaded with position changes Encounter Details DateTypeDepartmentCare Team (Latest Contact Info)Kpdwcimzptu78/22/2025 11:20 AM EDTOffice Visit [facility] Heart at [facility] [address] [place] [phone] Wali Collins MD [address] [place] [phone] Spontaneous dissection of coronary artery (Primary Dx); Other fatigue; Precordial pain; Anemia due to acute blood loss Social History Tobacco UseTypesPacks/DayYears UsedDateSmoking Tobacco: NeverSmokeless Tobacco: NeverAlcohol UseStandard Drinks/WeekCommentsNot Currently0 (1 standard drink = 0.6 oz pure alcohol)[facility] UtilitiesAnswerDate RecordedIn the past 12 months [...] homeless or living in a fdc (including now)?No11/15/2024Hunger Vital SignAnswerDate RecordedWithin the past 12 months, you worried that your food would run out before you got the money to buymore.Never true11/15/2024Ran Out of Food in the Last YearNot on file 11/15/2024CommentsNoSex and Gender InformationValueDate RecordedSex Assigned at BxwdfSqyszv42/03/2025 3:45 PM EDTLegal PxhFycful51/30/2022 12:07 AM EDTGender HanrzqfwBtuilb33/03/2025 3:45 PM EDTSexual OrientationHeterosexual or Dxuwnyxd34/03/2025 3:45 PM EDTdocumented as of this encounter Last Filed Vital Signs Vital SignReadingTime TakenCommentsBlood Mmcifigd656/6012/06/2024 11:10 AM EDT Nhcct839012/06/2024 11:10 AM EDTTemperature--Respiratory Rate--Oxygen Saturation 99%12/06/2024 11:10 AM EDTInhaled Oxygen Concentration--Weight--Esqemv705.6 cm (5' 6 )12/06/2024 11:10 AM EDTBody Mass Index--documented in this encounter Functional Status * BPAnswerDate of FwzqtqjijjKtiamy536/60/ 11:10 AM EDNadia Le MA * PulseAnswerDate of KrgrzpitilVklhcz7582/22/2025 11:10 AM EDNadia Le MA * Patient PositionAnswerDate of KlfmcfdedgTmqqewZpxkavt47/22/2025 11:10 AM EDT Nadia Gagnon MA * BPAnswerDate of LdpkwzgomjFzuzdj401/6012/06/2024 11:10 AM EDNadia Le MA * PulseAnswerDate of PbvbvpjpgzOgchqb9292/22/2025 11:10 AM Nadia Ortega MA * BdE1XhanooVqcy of FjxioywabnIkxkfk0249/22/2025 11:10 AM Nadia Ortega MA * BP LocationAnswerDate of AssessmentAuthorLeft arm12/06/2024 11:10 AM EDT Nadia Gagnon MA * Patient PositionAnswerDate of KnbdgwfiotSvoipbRfkmcwh40/22/2025 11:10 AM EDT Nadia Gagnon MA documented as of this encounter Progress Notes * Wali Collins MD - 12/06/2024 11:20 AM EDT Subjective Patient ID: Abbey Garcia is a 34 y.o. female who presents for Follow-up (Patient is here today for a follow up [facility] admission and for surgery clearance. Patient is having an ERCP with Dr. Bellamy at [facility]. Needs to stop plavix for 5 days.), Chest Pain (Chest pain with and without activity), Hypertension, Hyperlipidemia, NSTEMI, Spontaneous dissection of the coronary artery, Congestive Heart Failure, Idiopathic hypotension, Fatigue (Patient states she has extreme fatigue.), Shortness of Breath (Increased sob/pena/), and Dizziness (Dizziness/lightheaded with position changes/). Chest pains better, not as numerous. Occurs twice every few days. Lasts 30-40 minutes sharp, intense, radiating into shoulder and back Better sitting and slow deep breaths. Laying down is worse, better sitting up. Fatigued, walking to trash (30 yards) felt like I had ran a 1/4 mile Chest Pain Associated symptoms include dizziness and shortness of breath. Her past medical history is significant for CHF and hyperlipidemia. Hypertension Associated symptoms include chest pain and shortness of breath. Hyperlipidemia Associated symptoms include chest pain and shortness of breath. Congestive Heart Failure Associated symptoms include chest pain, fatigue and shortness of breath. Fatigue Associated symptoms include chest pain and fatigue. Shortness of Breath Associated symptoms include chest pain. Dizziness Associated symptoms include chest pain and fatigue. Review of Systems Constitutional: Positive for fatigue. Respiratory: Positive for shortness of breath. Cardiovascular: Positive for chest pain. Neurological: Positive for dizziness. Objective Visit Vitals BP 100/60 (BP Location: Left arm, Patient Position: Sitting) Pulse 68 Physical Exam Constitutional: Appearance: Normal appearance. She is normal weight. HENT: Head: Normocephalic and atraumatic. Cardiovascular: Rate and Rhythm: Normal rate and regular rhythm. No extrasystoles are present. Chest Wall: PMI is not displaced. Pulses: Normal pulses. No decreased pulses. Heart sounds: Heart sounds not distant. No murmur heard. No friction rub. No gallop. Pulmonary: Effort: Pulmonary effort is normal. Breath sounds: Normal breath sounds. Musculoskeletal: Right lower leg: No edema. Left lower leg: No edema. Skin: General: Skin is warm and dry. Neurological: General: No focal deficit present. Mental Status: She is alert and oriented to person, place, and time. Mental status is at baseline. Psychiatric: Mood and Affect: Mood normal. Behavior: Behavior normal. Thought Content: Thought content normal. Judgment: Judgment normal. Assessment/Plan Mrs. 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 Occasional chest pain that sounds more pericardial in nature which could be Fercho's post- myocardial injury pain. Regarding fatigue, she is anemic and is on several medications that can cause fatigue including fentanyl patch, reglan, etc. Anemia may also be playing a role (iron studies ordered). She is planning ERCP next week. I believe she is acceptable risk for this and can hold plavix during procedure but would continue aspirin. Diagnosis Plan 1. Spontaneous dissection of coronary artery 2. Other fatigue 3. Precordial pain No orders of the defined types were placed in this encounter. No results found for this or any previous visit (from the past 36 hours). No follow-ups on file. documented in this encounter Plan of Treatment DateTypeDepartmentCare Team (Latest Contact Info)Uyshndpubpk99/30/2025 9:00 AM EDTAppointment [facility] Endoscopy [address] [place] [address] Braxton Bellamy MD [address] [facility] [address] [facility] [place] [phone] 12/14/2024 10:30 AM EDTAppointment [facility] X-Ray Imaging [address] [place] [phone] 01/31/2025 11:00 AM ESTOffice Visit [facility] at [facility] [address] [place] [phone] Wali Collins MD [address] [place] [phone] NameTypePriorityAssociated DiagnosesOrder ScheduleIron and TIBCLabRoutine Anemia due to acute blood loss Expected: 12/06/2024 (Approximate), Expires: 12/06/2025documented as of this encounter Visit Diagnoses Diagnosis Spontaneous dissection of coronary artery- Primary Other fatigue Precordial pain Anemia due to acute blood loss Acute posthemorrhagic anemia documented in this encounter Care Teams Team MemberRelationshipSpecialtyStart DateEnd Date Thomas Alas MD [address] [facility] [address] [address] PCP - GeneralFamily Medicine08/17/24documented as of this encounter
[2024-12-08] VITALS (9 sets, daily range): BP systolic 104–120; BP diastolic 56–85; PULSE 63–74; TEMP 36.5; O2SAT 95–100; BMI 29.1
--- NOTE | 2024-12-08 20:53 | ECG_ITS ---
[facility] Test Date: 2024-12-08 Pat Name: JUAN KONG Department: Room: - Gender: Female Manager Bilingual: : 1990 Requested By: [id number] Order Number: [id number] Reading MD: JAMES HODGES M.D. Measurements Intervals [place] Rate: 69 P: 90 TX: 154 QRS: 83 QRSD: 84 T: 69 QT: 406 QTc: 426 Interpretive Statements 1100 Sinus rhythm 9110 normal ECG Compared to ECG 12/07/2024 14:56:19 No significant changes Electronically Signed On 12-09-2024 7:02:28 EDT by JAMES HODGES M.D.
--- OUTSIDE RECORDS SUMMARY | 2024-12-08 21:03 | XMS_ITS | Patient Health Record ---
Author Organization [facility] Address [address] [place] [address] Care Team Providers Care Behavioral Analyst Name Role Phone Ashley Bryson Primary Care Provider Christina Dominguez Unavailable Unavailable Reason For Referral No Information Encounters Encounter Location Date Provider Diagnosis [facility] [address] [place] [address] 04/25/2024 Ashley Bryson Encounter for dental examination [...] End Date Dental [employer] DQ [address] [address] [place] [phone] [id number], BESSIESelf - patient is the bueneko97/11/2025Dental [facility] Hum[address]PO [address] [place] [phone], BESSIE Self - patient is the qnxsipk20 2024
--- OUTSIDE RECORDS SUMMARY | 2024-12-08 21:03 | XMS_ITS | Clinical Summary ---
Author Organization [facility] Address [address] [place] [address] Care Team Providers Care Urology Physician Assistant Name Role Phone Mateusz Rosales MD Unavailable [phone] Source Comments The following information is NOT included in Care Everywhere downloads:Psychiatric notes, ECG results, Cardiac Rehab notes, Pulmonary Function notes, data from SmartForms (includes but not limited toPregnancy data,audiograms, eye exams, pre-surgical evaluation notes, well-child exam data).[facility] Medications No known medications Active Problems ProblemNoted DateDiagnosed DateMedian arcuate ligament yrjzzlrw84/02/2025 Assessment & Plan (10/09/2024 2:29 PM EDT): [...] prior laparotomy and open repair Encounters DateTypeDepartmentCare RpzjYdvxzzoftby88/25/2025 1:45 PM EDTTelemedicine [facility] Oncology Surgical [address] [phone] Mateusz Rosales MD Median arcuate ligament syndrome (HCC) (Primary Dx)10/09/20244119Tpawji52/21/2025 Telephone [facility] Surgery General [address] [place], [place] [phone] Mateusz Rosales MD from Last 3 Months Immunizations ImmunizationAdministration DatesNext DueInfluenza, injectable, quadrivalent, preservative free (VXK=229)11/12/2022,11/16/2021,12/25/2020Influenza, unspecified formulation (CVX=88)01/01/2021,11/28/2018 Social History Tobacco UseTypesPacks/DayYears UsedDateSmoking Tobacco: NeverSmokeless Tobacco: Never Tobacco Cessation:Counseling Given: Not Answered CommentsUnknownSex and Gender InformationValueDate RecordedSex Assigned at BirthNot on fileLegal UylXuhret30/23/2024 2:52 PM ESTGender IdentityNot on fileSexual OrientationNot on file Last Filed Vital Signs Vital SignReadingTime TakenCommentsBlood Emomcuyz370/7306 2:27 PM EDT Qujlt0137 2:27 PM ZLZIimupwffvjk83.4 ??C (97.5 ??F)07/17/2024 2:27 PM EDTRespiratory Amvh123907/17/2024 2:27 PM EDTOxygen Larslkxrvp43%07/17/2024 2:27 PM EDTInhaled Oxygen Concentration--Katupg40.5 kg (192 lb 12.8 oz)07/17/2024 2:27 PM EDTHeight--Body Mass Index-- Plan of Treatment Health MaintenanceDue DateLast DoneCommentsMammography (shared decision-making, age 35-39)1989HIV Test2004Hepatitis C Lghwhpkh80/17/2008Tdap Booster 2007Hepatitis A (HAV) Vaccine (optional start [...] Corby Garcia TypeRelation to PatientDate of BirthPhoneBilling AddressPersonal/DpbudrDvgk29/17/[address] [place] [address] Care Teams Team MemberRelationshipSpecialtyStart DateEnd Date Mateusz Rosales MD [address] [place] [address] PhysicianGeneral Surgery05/20/24
--- OUTSIDE RECORDS SUMMARY | 2024-12-08 21:04 | XMS_ITS | Encounter Summary ---
Author Organization [facility] Address [address] [place] [address] Care Team Providers Care Bread Wrapper Name Role Phone Thomas Alas MD Primary Care Provider [phone] Encounter Details DateTypeDepartmentCare Team (Latest Contact Info)Xjfkbwgrvmj34/24/2025Telephone [facility] Invasive Surgery Center Endoscopy [address] [place] [address] Muna Michael, DEE Social History Tobacco UseTypesPacks/DayYears UsedDateSmoking Tobacco: NeverSmokeless Tobacco: NeverAlcohol UseStandard Drinks/WeekCommentsNot Currently0 (1 standard drink = 0.6 oz pure alcohol)[facility] UtilitiesAnswerDate RecordedIn the past 12 months has the electric, gas, oil, or water Ininal threatened to shut off services in your [...] from medical appointments or from getting medications?No 10/01/2025Lack of Transportation (Non-Medical)Not on file11/15/2024Housing Stability Vital SignAnswerDate RecordedIn the last 12 months, was there a time when you were not able to pay the mortgage or rent on time?No11/15/2024In the past 12 months, how many times have you moved where you were living? At any time in the past 12 months, were you homeless or living in a mcfp (including now)?No11/15/2024Hunger Vital SignAnswerDate RecordedWithin the past 12 months, you worried that your food would run out before you got the money to buymore.Never true11/15/2024Ran Out of Food in the Last YearNot on file 11/15/2024CommentsNoSex and Gender InformationValueDate RecordedSex Assigned at NqgsyGmjrbz36/03/2025 3:45 PM EDTLegal TggZtjjlk52/30/2022 12:07 AM EDTGender ZshmyahgJfandh57/03/2025 3:45 PM EDTSexual OrientationHeterosexual or Udgivjed76/03/2025 3:45 PM EDTdocumented as of this encounter Miscellaneous Notes * Telephone Encounter - Muna Michael RN - 12/08/2024 9:03 AM EDT Spoke with patient as she had some questions regarding her EUS/ERCP on 12/14/24. She knows to hold her Plavix 5 days prior to her procedure but Cardiology wants her to remain on ASA, will not be a problem. Concerned that she is allergic to propofol will this interfere with anesthesia, it is documented and can proceed as planned will be able to speak with anesthesia prior to her procedure. documented in this encounter Plan of Treatment DateTypeDepartmentCare Team (Latest Contact Info)Epxtyeaccnt71/30/2025 9:00 AM EDTAppointment [facility] [address] [place] [phone] Braxton Bellamy MD [address] [facility] [address] [facility] [place] [phone] 12/14/2024 10:30 AM EDTAppointment [facility] [address] [place] [phone] 01/31/2025 11:00 AM ESTOffice Visit [facility] [address] [place] [address] Wali Collins MD [address] [place] [phone] documented as of this encounter Visit Diagnoses Not on filedocumented in this encounter Care Teams Team MemberRelationshipSpecialtyStart DateEnd Thomas Alas MD [address] [facility] [address] [address] PCP - GeneralFamily Medicine08/17/24documented as of this encounter
--- OUTSIDE RECORDS SUMMARY | 2024-12-08 21:04 | XMS_ITS | Clinical Summary ---
Author Organization [facility] Address [address] [place] [address] Phone Care Team Providers Care Steamfitter Apprentice Name Role Phone Generic Provider, No Assigned [...] mouth once daily at bedtime. 30 MG CWMVUPIQO25/26/2023 Active polyethylene glycol (Glycolax, Miralax) 17 gram/dose [...] pain06/30/2023cute renal failure superimposed on chronic kidney uwgadsa0806/29/20232997Oauxqxytuag24/14/2024Heart kmxvure2206/29/2023bdominal pain03/16/2023Nausea and acgndqhn62/19/2024OSA (obstructive sleep apnea)03/05/20231130Hgfbtt00/19/4414Lqzhuvn75/19/2024 Dnvuwwbxyqhyer27/19/6481Jzhhatrqys78/19/2024Median arcuate ligament syndrome 02/18/2023 Encounters DateTypeDepartmentCare ZafbZhpqbocsxjm09/26/2025 11:00 AM EDT - 10/10/2024 11:59 PM EDTHospital Encounter [facility] [address] [place] [address] Discharge Disposition: Home10/09/2024 10:15 AM EDTTelemedicine [facility] [address] [place] [phone] Jerad Magaña MD Median arcuate ligament syndrome (Primary Dx) Discharge Disposition: Home10/06/2024 9:00 AM EDTAncillary Procedure [facility] [address] [place] [address] Median arcuate ligament fcijspmx81/04/2025Orders Only [facility] [address] [place] [phone] Crystal Monique, DEE Median arcuate ligament syndrome [...] RecordedIn the past 12 months has the [employer], gas, oil, or water [employer] threatened to shut off services in your [...] relatives?Twice a week06/30/2023How often do you attend buddhist or uatsdin services?More than 4 times per year06/30/2023o you belong to any clubs or organizations such as buddhist groups, unions, fraternal [...] heating?Not hard at all06/30/2023HQ-2AnswerDate RecordedPatient Health Questionnaire-2 Hkaet881Finbrigham city community hospital [place] of Occupational Health - Occupational Stress QuestionnaireAnswerDate [...] steady place to sleep or slept in [place] (including now)?No 06/30/2023UDIT-CAnswerDate RecordedQ1: How often do you have a drink containing alcohol?Never10/09/2024Q2: How many drinks containing alcohol do you have on a typical day when you are drinking?Patient does not drink10/09/2024Q3: How often do you have six or more drinks on one occasion?Never10/09/2024Comments UnknownSex and Gender InformationValueDate RecordedSex Assigned at BirthFemale 02/23/2023 4:19 AM ESTLegal BfuAzzlpb16/26/2022 6:26 PM ESTGender IdentityFemale 03/02/2023 2:54 PM ESTSexual OliqebbwbpaLgmevoin86/16/2024 2:54 PM EST Last Filed Vital Signs Vital SignReadingTime TakenCommentsBlood Tyrvsott99/57007/03/2023 7:00 AM EDT Tckwo63229/18/2024 7:00 AM PUKBnhnjtgiqob38 ??C (98.6 ??F)07/03/2023 7:00 AM EDT Respiratory Vcir498007/03/2023 7:00 AM EDTOxygen Whpbbpuilj772%07/03/2023 7:00 AM EDTInhaled Oxygen Concentration--Mtomjo66.2 kg (168 lb)06/29/2023 6:16 PM EDT Dfezar251.6 cm (5' 6 )06/29/2023 6:16 PM EDTBody Mass Index27.1205 6:16 PM EDT Plan of Treatment Health MaintenanceDue DateLast IupeEpbllaheVjpvfsdhtiayga00/17/1990HIV Screening 1989Lipid Panel1989Yearly Adult Fqljxunn42/17/1990MMR Vaccines (1 of 1 - Standard series)1990Hepatitis C Rncsrfhxx57/17/2008Hepatitis A Vaccines (1 of 2 - Risk 2-dose series)2008Hepatitis B Vaccines (1 of 3 - 19+ 3-dose series)2008Pneumococcal Vaccine: Pediatrics and At-Risk Adult Patients (1 of 2 - PCV)2008Zoster Vaccines (1 of 2)2008HPV/Cotest 2010HPV Vaccines (1 - Risk 3-dose Standard series)2016COVID-19 Vaccine (2 - Woo risk series)07/21//ervical Cancer Screening 4Pap Smear/07/2020TSH Level09/11/654670/3Creatinine Level/, 07/01/2023, 06/30/2023, Additional history exists Potassium Level/, 07/01/2023, 06/30/2023, Additional history existsInfluenza Vaccine (#1)/, 11/16/2021, 01/01/2021, Additional history existsDiabetes Hsvazxtcq15/06/871992/07/2024, 08/19/2024, 08/18/2024, Additional history existsDTaP/Tdap/Td Vaccines (2 [...] LotMembrane, Seprafilm, 5 X 6 In - [id number] Implanted:Qty: 1 on 03/05/2023 by [facility]/A: AbdomenHUGH CHATHAM MEMORIAL [id number] / / [id number] Procedures Procedure NamePriorityDate/TimeAssociated DiagnosisCommentsCT TRANSFER OF OUTSIDE FBTPIKoctyfg54/26/2025 11:03 AM EDT VASC US MESENTERIC ARTERY DUPLEX KQNFYUCFHpamhns75/22/2025 9:40 AM EDT Median arcuate ligament syndrome POCT SLVVIUUOwhwvgr01/18/2024 7:17 AM EDT RENAL FUNCTION SBPXDAqkuemm19/17/2024 6:47 AM EDT from Last 3 Months [...] AM EDT Narrative 10/06/2024 1:59 PM EDT ?[place] [address] ? Vascular Lab Report VASC US MESENTERIC ARTERY DUPLEX COMPLETE Patient Name: ?JUAN MRenetta ATKINSONY ? Reading Physician: [id number] Rivera ?MD Study Date: ?10/06/2024 ? Ordering Provider: [id number] JERAD MAGAÑA MRN/PID: ? [id number] ?Fellow: Accession#: ?[id number] ?Technologist: ?Leia Degroot RVT Date of /Age: 2 1990 / 34 ?Technologist 2: ? years Gender: ?F ? Admission Status: ??Outpatient ?Location ? [facility] ? 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 60727 Mesenteric Duplex scan ` CONCLUSIONS: Mesenteric: Superior [...] cm/s KEELY Prox PSV ?? 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 CPT Codes: 37745 Mesenteric Duplex scan ` CONCLUSIONS: Mesenteric: Superior [...] 61 cm/s KEELY Prox PSV 118 cm/s [id number] Ann Rivera MD Final Authorizing ProviderResult TypeResult StatusWtramaine Magaña [facility] [place] VASCULAR PROCEDURESFinal Result * (ABNORMAL) POCT GLUCOSE (07/03/2023 7:17 AM EDT)ComponentValueRef RangeTest MethodAnalysis TimePerformed AtPathologist SignaturePOCT Ltevhdv579(H)74 - 99 mg/dL07/03/2023 7:24 AM [facility] LABSpecimen (Source) Anatomical Location / LateralityCollection Method / VolumeCollection Time Received TimeBloodCapillary blood specimen / Exmirdp5507/03/2023 7:17 AM EDT 07/03/2023 7:24 AM EDT Narrative Authorizing ProviderResult TypeResult StatusCygopi ROBLERO POINT OF CARE TEST DOCKED DEVICE UNSOLICITED RESULTSFinal ResultPerforming OrganizationAddress City/State/ZIP CodePhone Number [facility] [address] [place], [place] [phone] * (ABNORMAL) Renal Function Panel (07/02/2023 6:47 AM EDT)ComponentValueRef RangeTest MethodAnalysis TimePerformed AtPathologist BmstdsrfjOuppevo016(H)65 - 99 mg/dL07/02/2023 7:53 AM [facility] WDBQvqkpy743477 - 145 mmol/L07/02/2023 7:53 AM [facility] LABPotassium3.93.4 - 5.1 mmol/L07/02/2023 7:53 AM [facility] NBNUkvklpsf66185 - 107 mmol/L07/02/2023 7:53 AM [facility] EJOFritpuhuxyg81(L)24 - 31 mmol/L07/02/2023 7:53 AM [facility] LABUrea Sfdnvbzt827 - 25 mg/dL07/02/2023 7:53 AM [facility] LABCreatinine0.700.40 - 1.60 mg/dL07/02/2023 7:53 AM [facility] LABeGFR>90>60 mL/min/1.73m*2 07/02/2023 7:53 AM [facility] LABComment: Calculations of estimated GFR are performed using the 2020 CKD-EPI Study Refit equation without therace variable for the IDMS-Traceable creatinine methods. https://jasn.asnjournals.org/content/early/ASN.1959689986 Calcium8.68.5 - 10.4 mg/dL07/02/2023 7:53 AM [facility] Phosphorus4.02.5 - 4.5 mg/dL07/02/2023 7:53 AM [facility] Albumin4.03.5 - 5.0 g/dL07/02/2023 7:53 AM [facility] LABAnion Gap 11<=19 mmol/L07/02/2023 7:53 AM [facility] LABSpecimen (Source) Anatomical Location / LateralityCollection Method / VolumeCollection Time Received TimeBloodVenous blood specimen / Nenqwdx7807/02/2023 6:47 AM EDT 07/02/2023 6:58 AM EDT Narrative Authorizing ProviderResult TypeResult StatusOludatelma ROBLERO BLOOD ORDERABLESFinal ResultPerforming OrganizationAddressCity/State/ZIP CodePhone Number [facility] [address] [place] [address] from Last 3 Months or Most Recently Relevant to Health Maintenance Insurance Advance Directives For more information, please contact: [phone] (Available ) * Full Code (Latest Code Status on File) Date ActivatedDate InactivatedComments03/05/2023 2:37 PMQuestionAnswerComments Plan of Care:* Code Status Discussion Completed Decision Maker:* Patient Care Teams Team MemberRelationshipSpecialtyStart DateEnd Date Generic Provider, No Assigned [place] [address] PCP - GeneralGeneral Practice06/29/23
--- OUTSIDE RECORDS SUMMARY | 2024-12-08 21:04 | XMS_ITS | Encounter Summary ---
Author Organization [facility] Address [address] [place] [address] Care Team Providers Care Coating Machine Operator Helper Name Role Phone Thomas Alas MD Primary Care Provider [phone] Encounter Details DateTypeDepartmentCare Team (Latest Contact Info)Anxhlhxklwy10/21/2025Orders Only [facility] Heart at [facility] [address] [place] [address] Provider, MD Siri [address] [place], [place] [phone] Social History Tobacco UseTypesPacks/DayYears UsedDateSmoking Tobacco: NeverSmokeless Tobacco: NeverAlcohol UseStandard Drinks/WeekCommentsNot Currently0 (1 standard drink = 0.6 oz pure alcohol)[facility] UtilitiesAnswerDate RecordedIn the past 12 months [...] homeless or living in a jail (including now)?No11/15/2024Hunger Vital SignAnswerDate RecordedWithin the past 12 months, you worried that your food would run out before you got the money to buymore.Never true11/15/2024Ran Out of Food in the Last YearNot on file 11/15/2024CommentsNoSex and Gender InformationValueDate RecordedSex Assigned at WmhvgEarkda87/03/2025 3:45 PM EDTLegal JtkXjrizu84/30/2022 12:07 AM EDTGender MvsudmqeNxhygt44/03/2025 3:45 PM EDTSexual OrientationHeterosexual or Wlwxogkg84/03/2025 3:45 PM EDTdocumented as of this encounter Functional Status * BPAnswerDate of KgxljcgezrJcifez540/6012/06/2024 11:10 AM Nadia Ortega MA * PulseAnswerDate of CltdcmwaziPdnutg7428/22/2025 11:10 AM Nadia Ortega MA * Patient PositionAnswerDate of YtxhzyblmyChozlgDmazdis89/22/2025 11:10 AM EDT Nadia Gagnon MA * BPAnswerDate of XkqoythlfbOsfvuj016/6012/06/2024 11:10 AM Nadia Ortega MA * PulseAnswerDate of HebmzgospzZflbgc7685/22/2025 11:10 AM Nadia Ortega MA * BzA7QoiweaWfwd of LyhxcfflzdYibkaj9995/22/2025 11:10 AM Nadia Ortega MA * BP LocationAnswerDate of AssessmentAuthorLeft arm12/06/2024 11:10 AM EDT Nadia Gagnon MA * Patient PositionAnswerDate of ZhxtjhhqxlBrucpvPndxjbm83/22/2025 11:10 AM EDT Nadia Gagnon MA documented as of this encounter Plan of Treatment DateTypeDepartmentCare Team (Latest Contact Info)Rowxbccakhp70/30/2025 9:00 AM EDTAppointment [facility] [place] [facility] [address] [place] [address] Braxton Bellamy MD [address] [facility] [address] [facility] [place] [address] 12/14/2024 10:30 AM EDTAppointment [facility] X-Ray Imaging [address] [place] [address] 01/31/2025 11:00 AM ESTOffice Visit [facility] [address] [place] [address] Wali Collins MD [address] [place] [address] documented as of this encounter Procedures Procedure NamePriorityDate/TimeAssociated DiagnosisCommentsCOMPLETE TRANSTHORACIC ECHO (TTE) W/WO IMAGING AGENT, STRAIN, 3D, BUBBLE STUDYRoutine 09/01/2024 3:12 PM EDTdocumented in this encounter Results * Complete Echo (TTE) w/wo Imaging Agent, Strain, 3D, Bubble Study (09/01/2024 3:12 PM EDT)Anatomical RegionLateralityModalityUltrasound Narrative Authorizing ProviderResult TypeResult StatusHistorical Provider [facility] [place] ECHO PROCEDURESFinal Result documented in this encounter Visit Diagnoses Not on filedocumented in this encounter Care Teams Team MemberRelationshipSpecialtyStart DateEnd Date Thomas Alas MD [address] [facility] [address] [address] PCP - GeneralFamily Medicine08/17/24documented as of this encounter
--- OUTSIDE RECORDS SUMMARY | 2024-12-08 21:04 | XMS_ITS | Encounter Summary ---
Author Organization [facility] Address [address] [place] [address] Care Team Providers Care Hospitality Intern Name Role Phone Thomas Alas MD Primary Care Provider [phone] Encounter Details DateTypeDepartmentCare Team (Latest Contact Info)Nozwkfomihq64/20/2025Travel Social History Tobacco UseTypesPacks/DayYears UsedDateSmoking Tobacco: NeverSmokeless Tobacco: NeverAlcohol UseStandard Drinks/WeekCommentsNot Currently0 (1 standard drink = 0.6 oz pure alcohol)[facility] UtilitiesAnswerDate RecordedIn the past 12 months [...] homeless or living in a alf (including now)?No11/15/2024Hunger Vital SignAnswerDate RecordedWithin the past 12 months, you worried that your food would run out before you got the money to buymore.Never true11/15/2024Ran Out of Food in the Last YearNot on file 11/15/2024CommentsNoSex and Gender InformationValueDate RecordedSex Assigned at UdgllSjeqhz87/03/2025 3:45 PM EDTLegal ZazCvuhei66/30/2022 12:07 AM EDTGender AeykkgyqOknhdh89/03/2025 3:45 PM EDTSexual OrientationHeterosexual or Bqirizrq78/03/2025 3:45 PM EDTdocumented as of this encounter Plan of Treatment DateTypeDepartmentCare Team (Latest Contact Info)Dqeybpbcufd68/30/2025 9:00 AM EDTAppointment [facility] Endoscopy [address] [place] [address] Braxton Bellamy MD [address] [facility] [address] [facility] [place] [address] 12/14/2024 10:30 AM EDTAppointment [facility] X-Ray Imaging [address] [place] [address] 01/31/2025 11:00 AM ESTOffice Visit [facility] Heart at [facility] [address] [place] [address] Wali Collins MD [address] [place] [address] documented as of this encounter Visit Diagnoses Not on filedocumented in this encounter Care Teams Team MemberRelationshipSpecialtyStart DateEnd Date Thomas Alas MD [address] [facility] [address] [address] PCP - GeneralFamily Medicine08/17/24documented as of this encounter
--- OUTSIDE RECORDS SUMMARY | 2024-12-08 21:04 | XMS_ITS | Encounter Summary ---
Author Organization [facility] Address [address] [place] [address] Care Team Providers Care Chemistry Laboratory Technician Name Role Phone Thomas Alas MD Primary Care Provider [phone] Encounter Details DateTypeDepartmentCare Team (Latest Contact Info)Oyjygxktecx83/17/2025Orders Only [facility] In[facility] Surgery Center Endoscopy [address] [place] [address] Muna Michael, RN Common bile duct dilation (Primary Dx) Social History Tobacco UseTypesPacks/DayYears UsedDateSmoking Tobacco: NeverSmokeless Tobacco: NeverAlcohol UseStandard Drinks/WeekCommentsNot Currently0 (1 standard drink = 0.6 oz pure alcohol)[facility] UtilitiesAnswerDate RecordedIn the past 12 months has the [employer], gas, oil, or water [employer] threatened to shut off services in [...] 11/15/2024CommentsNoSex and Gender InformationValueDate RecordedSex Assigned at RdfgzExwxqc14/03/2025 3:45 PM EDTLegal EmaKomxzw36/30/2022 12:07 AM EDTGender WivchrmvWqtlqi44/03/2025 3:45 PM EDTSexual OrientationHeterosexual or Illcxzws90/03/2025 3:45 PM EDTdocumented as of this encounter Plan of Treatment DateTypeDepartmentCare Team (Latest Contact Info)Qsijvmilkpn70/30/2025 9:00 AM EDTAppointment [facility] Invasive Surgery Center Endoscopy [address] [place] [address] Braxton Bellamy MD [address] [facility] [place] [address] 12/14/2024 10:30 AM EDTAppointment [facility] X-Ray Imaging [address] [place] [address] 01/31/2025 11:00 AM ESTOffice Visit [facility] Heart at [facility] [address] [place] [address] Wali Collins MD [address] [place] [address] NameTypePriorityAssociated DiagnosesOrder ScheduleFl in EndoImagingRoutine Common bile duct dilation Expected: 12/14/2024, Expires: 12/01/2025documented as of this encounter Visit Diagnoses Diagnosis Common bile duct dilation- Primary documented in this encounter Care Teams Team MemberRelationshipSpecialtyStart DateEnd Date Thomas Alas MD [address] [place] [address] PCP - GeneralFamily Medicine08/17/24documented as of this encounter
--- OUTSIDE RECORDS SUMMARY | 2024-12-08 21:04 | XMS_ITS | Encounter Summary ---
Author Organization [facility] Address [address] [place] [address] Care Team Providers Care Tube Builder Airplane Name Role Phone Thomas Alas MD Primary Care Provider [phone] Encounter Details DateTypeDepartmentCare Team (Latest Contact Info)Orrkzshnwqn38/22/2025Orders Only [facility] Heart at [facility] [address] [place] [address] Maryuri Downing MA Anemia, unspecified type (Primary Dx) Social History Tobacco UseTypesPacks/DayYears UsedDateSmoking Tobacco: NeverSmokeless Tobacco: NeverAlcohol UseStandard Drinks/WeekCommentsNot Currently0 (1 standard drink = 0.6 oz pure alcohol)[facility] UtilitiesAnswerDate RecordedIn the past 12 months [...] 11/15/2024CommentsNoSex and Gender InformationValueDate RecordedSex Assigned at SwwzoOcqnum84/03/2025 3:45 PM EDTLegal AycZqvzmc89/30/2022 12:07 AM EDTGender AyezddiaOwwryn31/03/2025 3:45 PM EDTSexual OrientationHeterosexual or Iiipccsg40/03/2025 3:45 PM EDTdocumented as of this encounter Functional Status * BPAnswerDate of EooxuscxinLghwbs413/6012/06/2024 11:10 AM Ndaia Ortega MA * PulseAnswerDate of SvzahlebslJkrrvz3879/22/2025 11:10 AM Nadia Ortega MA * Patient PositionAnswerDate of QidlsodbnaLfuhkfVbetrco80/22/2025 11:10 AM EDT Nadia Gagnon MA * BPAnswerDate of PjhoeujgeuTqhknn230/6012/06/2024 11:10 AM Nadia Ortega MA * PulseAnswerDate of NcwionniwcMsgdnr1214/22/2025 11:10 AM Nadia Ortega MA * JvS4LptqkpTrpr of EtudybtkxwMwqcvn0267/22/2025 11:10 AM Nadia Ortega MA * BP LocationAnswerDate of AssessmentAuthorLechoate [facility]12/06/2024 11:10 AM EDT Nadia Gagnon MA * Patient PositionAnswerDate of VmtrgwqqhnFrzdwtWiutsvx51/22/2025 11:10 AM EDT Nadia Gagnon MA documented as of this encounter Plan of Treatment DateTypeDepartmentCare Team (Latest Contact Info)Qctzurfabjh85/30/2025 9:00 AM EDTAppointment [facility] Center Endoscopy [address] [place] [address] Braxton Bellamy MD [address] [facility] [address] [facility] [place] [address] 12/14/2024 10:30 AM EDTAppointment [facility] X-Ray Imaging [address] [place] [address] 01/31/2025 11:00 AM ESTOffice Visit [facility] Heart at [facility] [address] [place] [address] Wali Collins MD [address] [place] [address] documented as of this encounter Visit Diagnoses Diagnosis Anemia, unspecified type- Primary documented in this encounter Care Teams Team MemberRelationshipSpecialtyStart DateEnd Date Thomas Alas MD [address] [facility] [address] [address] PCP - GeneralFamily Medicine08/17/24documented as of this encounter
--- OUTSIDE RECORDS SUMMARY | 2024-12-08 21:04 | XMS_ITS | Patient Health Record ---
Author Organization [facility] in [place] Address [address] [place] [address] Care Team Providers Care Bar Host/Hostess Name Role Phone Brandyn Alas Primary Care Provider Allergies Allergen (clinical drug ingredient) Drug/Non Drug Allergy documented on EMR Reaction Allergy Type Onset Date Status codeine Codeine vomiting Drug Allergy ActiveNon-steroidal anti-inflammatory agent (FN)NSAIDsGastric bypassDrug Allergy Active Results Component Value Reference Range Notes CBC AUTO DIFF Reviewed date:08/28/2024 06:06:36 PM Interpretation: Performing Lab: Notes/Report: [facility] , White Blood Count 5.2 4.0-11.0 10 3/uL Red Blood Count4.254.20-5.40 10 6/tUHfikulbffj21.712.0-16.0 g/mEXrdmzgmhww27.8 36.0-48.0 %Mean Corpuscular Pylxwi33.381.0-99.0 fLMean Corpuscular Hemoglobin 29.926.7-34.0 pgMean Corpuscular HGB Conc32.729.9-35.2 g/dLRed Cell Distribution Width13.611.0-15.0 %Platelet Pexow846224-486 10 3/uLMean Platelet Ydyulm43.09.5- 13.5 fLPerforming Lab:see noteML - [facility] LBPROF 14(COMP METB) Reviewed date:08/28/2024 06:06:36 PM Interpretation: Performing Lab: Notes/Report: [facility] ,Auazmc117507-249 mmol/LPotassium3.13.5-5.1 mmol/QUeoujeft52591-973 mmol/LCarbon Itnceia94.621.0-32.0 mmol/LAnion Gap19.1Dfxzxyb4010-527 mg/dLBlood Urea Nitrogen 9.07.0-18.0 mg/dLCreatinine0.630.55-1.02 mg/dLEstimated GFR ( Shelby>60 >=60 mL/min/1.73m 2Estimated GFR (Non- Caroline>60>=60 mL/min/1.73m 2BUN Creatinine Ratio14.8Pusgyjl9.48.5-10.1 mg/dLBilirubin Total0.50.2-1.0 mg/dL Aspartate Amino Jvadatqnkkm3470-35 U/LAlanine Nnbkaywxyvzsovwi3315-61 U/L Alkaline Ufbdqeoquqz75421-654 U/LTotal Protein6.26.4-8.2 g/dLAlbumin Level2.8 3.4-5.0 g/dLGlobulin3.4Albumin Globulin Ratio0.8Performing Lab:see noteML - [facility] LBBlood Culture 2 Reviewed date:09/04/2024 02:45:30 PM Interpretation: Performing Lab: Notes/Report: LEFT WRIST [facility] ,Blood Culture 2See Below For Report Blood Culture 2 NG5D NO GROWTH AT 5 DAYS.^NO GROWTH AT 5 DAYS. Performing Lab:see note - [facility] LBBlood Culture 1 Reviewed date:09/24/2024 07:41:50 PM Interpretation: Performing Lab: Notes/Report: [facility] ,Blood Culture 1See Below For Report NG5D NO GROWTH AT 5 DAYS.^NO GROWTH AT 5 DAYS. Blood Culture 1 Performing Lab:see note - [facility] LBCBC AUTO DIFF Reviewed date:08/10/2024 07:02:35 PM Interpretation: Performing Lab: Notes/Report: [facility] ,White Blood Count9.34.0-11.0 10 3/uLRed Blood Count3.214.20-5.40 10 6/uL Djgyzcvxlh53.312.0-16.0 g/eRFooytqiuud87.536.0-48.0 %Mean Corpuscular Gxfdil21.9 81.0-99.0 fLMean Corpuscular Vmhmhopppp88.126.7-34.0 pgMean Corpuscular HGB Conc 34.929.9-35.2 g/dLRed Cell Distribution Width13.411.0-15.0 %Platelet Bkqbd958 150-450 10 3/uLMean Platelet Piwceg50.59.5-13.5 fLNeutrophils Percent Auto83.2 43.0-75.0 %Lymphocytes Percent Auto10.620.5-60.0 %Monocytes Percent Auto4.51.7- 12.0 %Eosinophils Percent Auto0.10.9-7.0 %Basophils Percent Auto0.20.2-2.0 % Immature Granulocytes Pct Auto1.40.0-0.5 %Neutrophils Absolute Auto7.71.4-6.5 10 3/uLLymphocytes Absolute Auto1.01.2-3.8 10 3/uLMonocytes Absolute Auto0.40.3-0.8 10 3/uLEosinophils Absolute Auto0.00.0-0.7 10 3/uLBasophils Absolute Auto0.00.0- 0.1 10 3/uLImmature Granulocytes Abs Auto0.130.00-0.03 10 3/uLPerforming Lab:see note - [facility] LBTestosterone,Free and Total Reviewed date:12/23/2023 07:44:34 PM Interpretation: Performing Lab: Notes/Report: [facility] DR[facility] ,Testosterone<38-60 ng/dLFree Testosterone(Direct)<0.20.0-4.2 pg/mL Performed at: [facility] Lab[address] [id number] Quality Control Inspector Heading: Daron Almanza PhD, Phone: [phone] Performed at: [facility] Lab[address] [id number] Quality Control Inspector Heading: Suhas Ring MD, Phone: [phone] Performing Lab:[facility] LBLAB TESTING Reviewed date:12/31/2023 06:29:26 AM Interpretation: Performing Lab: Notes/Report: [id number] Fatty Acid Profile, Essential [facility] ,Miscellaneous TestCOMMENT. Test Ordered: [id number] Fatty Acid Profile, Essential Interp, Fatty Acids Profile SP Normal Y8 Reference Range: . Normal fatty acid profile. Results reviewed and interpreted by Doris Odonnell, PhD, [facility] INTERPRETIVE INFORMATION: Fatty Acids Profile, Essential Ser/Plas This test does not screen for disorders of peroxisomal biogenesis/function. This test was developed and its performance characteristics determined by [facility]. It has not been cleared or approved [...] Acid, C18:2w6 3001 nmol/mL Y8 Reference Range: 6667-5499 a-Linolenic Acid, C18:3w3 71 nmol/mL Y8 Reference Range: 20-200 k-d-Wvnfjdomf C20:3w6 198 nmol/mL Y8 Reference Range: 45-340 g-Linolenic Acid, C18:3w6 104 nmol/mL Y8 Reference Range: 10-120 [place] Acid, C20:3w9 27 nmol/mL Y8 Reference Range: 1-35 Myristic Acid, C14:0 123 nmol/mL Y8 Reference Range: 20-520 Nervonic Acid, C24:1w9 116 nmol/mL Y8 Reference Range: 35-145 Oleic Acid, C18:1w9 2918 nmol/mL Y8 Reference Range: 740-3900 Palmitic Acid, C16:0 3079 nmol/mL Y8 Reference Range: 4342-8822 Palmitoleic Acid, C16:1w7 218 nmol/mL Y8 Reference [...] Range: . Authorized individuals can access the [employer] Enhanced Report using the following link: [email or web address] IMAGE . Y8 Reference Range: . Performed at: Y - [facility] [address] [id number] Quality Control Inspector Heading: Kirt Murphy [facility], Phone: [phone] Performed at: [address] [id number] Quality Control Inspector Heading: Daron Almanza PhD, Phone: [phone] Performing Lab:see note - [facility] LBCBC AUTO DIFF Reviewed date:01/06/2024 01:36:15 PM Interpretation: Performing Lab: Notes/Report: [facility] ,White Blood Count5.64.0-11.0 10 3/uLRed Blood Count3.814.20-5.40 10 6/uL Aeghmrylng06.312.0-16.0 g/fGHovwxbrcri18.536.0-48.0 %Mean Corpuscular Lneqyi17.6 81.0-99.0 fLMean Corpuscular Lrepzizhdw88.726.7-34.0 pgMean Corpuscular HGB Conc 32.829.9-35.2 g/dLRed Cell Distribution Width17.411.0-15.0 %Platelet Igcus940 150-450 10 3/uLMean Platelet Fiiqsx43.29.5-13.5 fLNeutrophils Percent Auto77.9 43.0-75.0 %Lymphocytes Percent Auto18.020.5-60.0 %Monocytes Percent Auto3.21.7- 12.0 %Eosinophils Percent Auto0.20.9-7.0 %Basophils Percent Auto0.50.2-2.0 % Immature Granulocytes Pct Auto0.20.0-0.5 %Neutrophils Absolute Auto4.31.4-6.5 10 3/uLLymphocytes Absolute Auto1.01.2-3.8 10 3/uLMonocytes Absolute Auto0.20.3-0.8 10 3/uLEosinophils Absolute Auto0.00.0-0.7 10 3/uLBasophils Absolute Auto0.00.0- 0.1 10 3/uLImmature Granulocytes Abs Auto0.010.00-0.03 10 3/uLPerforming Lab:see noteML - [facility] LBTestosterone Reviewed date:01/11/2024 02:35:19 PM Interpretation: Performing Lab: Notes/Report: [facility] ,Testosterone<38-60 ng/dL Performed at: - [facility] [id number] Quality Control Inspector Heading: Daron Almanza PhD, Phone: [phone] Performing Lab:see noteLC - [facility] LBXR acute abdomen series Reviewed date:01/12/2024 05:28:40 PM Interpretation: Performing Lab: Notes/Report: Source Facility: [facility]-[address] [place] [address] [place] [address] XRay Report Signed Patient: JUAN GARCIA MR#: [id number] : 1990 Acct:[id number] Age/Sex: 33 / F ADM Date: 01/10/24 Loc: LAB Attending Dr: Britt Alas M.D. Ordering Physician: Britt Alas M.D. Date of Service: 01/10/24 Procedure(s): XR acute abdomen series Accession Number(s): [id number] cc: Britt Alas M.D. The [address] [address] Patient Name: JUAN GARCIA MRN: [facility]:[id number] date: 1990 Sex: F Assigned Patient Location: LAB Current Patient Location: Accession/Order Number: [id number] Exam Date: 01/10/2024 10:06 Report Date: 01/12/2024 [...] Signed By: 01/12/24 1448 DD/ 1445 TD/TT: Tree Doctor:FERRITIN Reviewed date:01/31/2024 02:12:13 PM Interpretation: Performing Lab: Notes/Report: [facility] ,Gixlefpk79.08.0-252.0 ng/mLPerforming Lab:see noteML - [facility] LB IRON AND TIBC Reviewed date:01/31/2024 02:12:13 PM Interpretation: Performing Lab: Notes/Report: [facility] ,Ipuk126.050.0-170.0 ug/dLTotal Iron Binding Carqcpto718.0250.0-450.0 ug/dL Percent Iron Yjcefoqmvx37.3Performing Lab:see noteML - [facility] LB CBC AUTO DIFF Reviewed date:02/16/2024 03:19:17 PM Interpretation: Performing Lab: Notes/Report: [facility] ,White Blood Count7.74.0-11.0 10 3/uLRed Blood Count3.914.20-5.40 10 6/uL Phewmbcxmj27.512.0-16.0 g/iWUmyzarwjgb34.336.0-48.0 %Mean Corpuscular Nzxicw03.4 81.0-99.0 fLMean Corpuscular Gwokraiubv77.026.7-34.0 pgMean Corpuscular HGB Conc 33.529.9-35.2 g/dLRed Cell Distribution Width14.311.0-15.0 %Platelet Ourka726 150-450 10 3/uLMean Platelet Kdqoee47.39.5-13.5 fLNeutrophils Percent Auto83.0 43.0-75.0 %Lymphocytes Percent Auto13.620.5-60.0 %Monocytes Percent Auto2.71.7- 12.0 %Eosinophils Percent Auto0.30.9-7.0 %Basophils Percent Auto0.30.2-2.0 % Immature Granulocytes Pct Auto0.10.0-0.5 %Neutrophils Absolute Auto6.41.4-6.5 10 3/uLLymphocytes Absolute Auto1.01.2-3.8 10 3/uLMonocytes Absolute Auto0.20.3-0.8 10 3/uLEosinophils Absolute Auto0.00.0-0.7 10 3/uLBasophils Absolute Auto0.00.0- 0.1 10 3/uLImmature Granulocytes Abs Auto0.010.00-0.03 10 3/uLPerforming Lab:see noteML - [facility] LBCBC AUTO DIFF Reviewed date:03/29/2024 09:46:23 PM Interpretation: Performing Lab: Notes/Report: [facility] ,White Blood Count8.64.0-11.0 10 3/uLRed Blood Count3.734.20-5.40 10 6/uL Agroyszanj63.712.0-16.0 g/uJAoexvogzhx31.536.0-48.0 %Mean Corpuscular Mfknuf20.9 81.0-99.0 fLMean Corpuscular Yfbsijkoob80.026.7-34.0 pgMean Corpuscular HGB Conc 34.829.9-35.2 g/dLRed Cell Distribution Width12.011.0-15.0 %Platelet Qmxyv567 150-450 10 3/uLMean Platelet Zlqghv92.89.5-13.5 fLNeutrophils Percent Auto87.8 43.0-75.0 %Lymphocytes Percent Auto10.220.5-60.0 %Monocytes Percent Auto1.61.7- 12.0 %Eosinophils Percent Auto0.00.9-7.0 %Basophils Percent Auto0.20.2-2.0 % Immature Granulocytes Pct Auto0.20.0-0.5 %Neutrophils Absolute Auto7.51.4-6.5 10 3/uLLymphocytes Absolute Auto0.91.2-3.8 10 3/uLMonocytes Absolute Auto0.10.3-0.8 10 3/uLEosinophils Absolute Auto0.00.0-0.7 10 3/uLBasophils Absolute Auto0.00.0- 0.1 10 3/uLImmature Granulocytes Abs Auto0.020.00-0.03 10 3/uLPerforming Lab:see noteML - [facility] LBMAGNESIUM Reviewed date:03/29/2024 09:46:23 PM Interpretation: Performing Lab: Notes/Report: [facility] ,Magnesium1.81.8-2.4 mg/dLPerforming Lab:see noteML - [facility] LB PROF 14(COMP METB) Reviewed date:03/29/2024 09:46:23 PM Interpretation: Performing Lab: Notes/Report: [facility] ,Liaxkq496812-243 mmol/LPotassium3.83.5-5.1 mmol/SHwvsshrh47521-040 mmol/LCarbon Zndkeyn07.721.0-32.0 mmol/LAnion Gap13.2Ajxwnno8887-009 mg/dLBlood Urea Nitrogen 13.07.0-18.0 mg/dLCreatinine0.940.55-1.02 mg/dLEstimated GFR ( Shelby>60 >=60 mL/min/1.73m 2Estimated GFR (Non- Caroline>60>=60 mL/min/1.73m 2BUN Creatinine Ratio13.9Oyawzuk9.48.5-10.1 mg/dLBilirubin Total0.30.2-1.0 mg/dL Aspartate Amino Redqmtsqwnk4743-13 U/LAlanine Jslkxqskxmbigyoh2759-91 U/L Alkaline Xezgcvxrowx5921-066 U/LTotal Protein6.46.4-8.2 g/dLAlbumin Level3.53.4- 5.0 g/dLGlobulin2.9Albumin Globulin Ratio1.2Performing Lab:see noteML - [facility] LBTSH Reviewed date:03/29/2024 09:46:23 PM Interpretation: Performing Lab: Notes/Report: [facility] ,Thyroid Stimulating Hormone0.6220.358-3.740 uIU/mLPerforming Lab:see noteML - [facility] LBAMYLASE Reviewed date:06/21/2024 12:59:38 PM Interpretation: Performing Lab: Notes/Report: [facility] ,Lazznwn0699-528 U/LPerforming Lab:see note - [facility] LBCBC AUTO DIFF Reviewed date:06/21/2024 12:59:38 PM Interpretation: Performing Lab: Notes/Report: [facility] ,White Blood Count5.64.0-11.0 10 3/uLRed Blood Count3.724.20-5.40 10 6/uL Igwlyspkoc38.312.0-16.0 g/iAVathfjlvvy09.436.0-48.0 %Mean Corpuscular Xtdjdp62.2 81.0-99.0 fLMean Corpuscular Zusxzvcjul06.126.7-34.0 pgMean Corpuscular HGB Conc 34.729.9-35.2 g/dLRed Cell Distribution Width12.211.0-15.0 %Platelet Gqmal945 150-450 10 3/uLMean Platelet Volume9.49.5-13.5 fLNeutrophils Percent Auto83.0 43.0-75.0 %Lymphocytes Percent Auto13.720.5-60.0 %Monocytes Percent Auto2.71.7- 12.0 %Eosinophils Percent Auto0.00.9-7.0 %Basophils Percent Auto0.20.2-2.0 % Immature Granulocytes Pct Auto0.40.0-0.5 %Neutrophils Absolute Auto4.71.4-6.5 10 3/uLLymphocytes Absolute Auto0.81.2-3.8 10 3/uLMonocytes Absolute Auto0.20.3-0.8 10 3/uLEosinophils Absolute Auto0.00.0-0.7 10 3/uLBasophils Absolute Auto0.00.0- 0.1 10 3/uLImmature Granulocytes Abs Auto0.020.00-0.03 10 3/uLPerforming Lab:see noteML - [facility] LBLIPASE Reviewed date:06/21/2024 12:59:38 PM Interpretation: Performing Lab: Notes/Report: [facility] ,Ciandg01.016.0-77.0 U/LPerforming Lab:see noteML - [facility] LB LIVER PROFILE Reviewed date:06/21/2024 12:59:38 PM Interpretation: Performing Lab: Notes/Report: [facility] ,Bilirubin Total0.60.2-1.0 mg/dLBilirubin Direct0.20.0-0.2 mg/dLAspartate Amino Nzlykiexxwm5912-17 U/LAlanine Fwjaiagbdgaoinde0064-69 U/LAlkaline Pbwfvzbwzpg57 46-116 U/LTotal Protein6.76.4-8.2 g/dLAlbumin Level3.43.4-5.0 g/dLGlobulin3.3 Albumin Globulin Ratio1.0Performing Lab:see noteML - [facility] LB PROF CHEM 8 (BAS METB) Reviewed date:06/21/2024 12:59:38 PM Interpretation: Performing Lab: Notes/Report: [facility] ,Naaiot146205-730 mmol/LPotassium3.53.5-5.1 mmol/AQxotgmim15611-281 mmol/LCarbon Uficolw83.721.0-32.0 mmol/LAnion Gap14.0Pjcbfje39790-014 mg/dLBlood Urea Brzihkst87.07.0-18.0 mg/dLCreatinine0.740.55-1.02 mg/dLEstimated GFR ( Shelby>60>=60 mL/min/1.73m 2Estimated GFR (Non- Caroline>60>=60 mL/min/1.73m 2BUN Creatinine Ratio13.1Ibdyglj9.78.5-10.1 mg/dLPerforming Lab:see noteML - [facility] LBHCG Qualitative* Reviewed date:06/21/2024 12:59:38 PM Interpretation: Performing Lab: Notes/Report: [facility] ,HCG QualitativeNEGATIVENEGATIVEPerforming Lab:see note - [facility] LBECG 12 lead Reviewed date:06/21/2024 08:02:33 PM Interpretation: Performing Lab: Notes/Report: Source Facility: [facility]-[address] [place] [address] Electrocardiograph Report Signed Patient: JUAN GARCIA MR#: [id number] : 1990 Acct:[id number] Age/Sex: 34 / F ADM Date: 06/21/24 Loc: ER Attending Dr: Ordering Physician: Leslie Terraazs M.D. Date of Service: 06/21/24 Procedure(s): ECG 12 lead Accession Number(s): [id number] cc: [facility] Test Date: 2024-06-21 Pat Name: JUAN GARCIA Department: Room: - 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1990 Requested By: BRITT ALAS Order Number: [id number] Reading MD: JAMES HODGES M.D. Measurements Intervals Alpha Rate: 80 P: 54 HI: 140 QRS: 47 QRSD: 80 T: 46 QT: 384 QTc: 420 Interpretive Statements 1100 Sinus rhythm 9110 normal ECG Compared to ECG 09/23/2023 18:36:37 No significant changes Electronically Signed On 06-21-2024 18:14:03 EDT by JAMES HODGES M.D. Dictated By: JAMES HODGES Signed By: 06/21/24 1814 DD/ 1124 TD/TT: Tree Doctor:CBC AUTO DIFF Reviewed date:08/02/2024 05:29:08 PM Interpretation: Performing Lab: Notes/Report: [facility] ,White Blood Count9.14.0-11.0 10 3/uLRed Blood Count3.854.20-5.40 10 6/uL Guetukgnom60.412.0-16.0 g/gSHrwczrdsve22.136.0-48.0 %Mean Corpuscular Hvjcjv68.8 81.0-99.0 fLMean Corpuscular Fbhvurxptb49.226.7-34.0 pgMean Corpuscular HGB Conc 34.329.9-35.2 g/dLRed Cell Distribution Width12.611.0-15.0 %Platelet Mvvlq939 150-450 10 3/uLMean Platelet Yttcnn07.49.5-13.5 fLNeutrophils Percent Auto83.0 43.0-75.0 %Lymphocytes Percent Auto12.720.5-60.0 %Monocytes Percent Auto3.41.7- 12.0 %Eosinophils Percent Auto0.40.9-7.0 %Basophils Percent Auto0.30.2-2.0 % Immature Granulocytes Pct Auto0.20.0-0.5 %Neutrophils Absolute Auto7.51.4-6.5 10 3/uLLymphocytes Absolute Auto1.21.2-3.8 10 3/uLMonocytes Absolute Auto0.30.3-0.8 10 3/uLEosinophils Absolute Auto0.00.0-0.7 10 3/uLBasophils Absolute Auto0.00.0- 0.1 10 3/uLImmature Granulocytes Abs Auto0.020.00-0.03 10 3/uLPerforming Lab:see noteML - [facility] LBLACTATE or LACTIC ACID Reviewed date:08/02/2024 05:29:08 PM Interpretation: Performing Lab: Notes/Report: [facility] ,Lactate/Lactic Acid2.20.4-2.0 mmol/LRESULTS CALLED TO DR. Larryg Lab:see noteML - [facility] LBPROF CHEM 8 (BAS METB) Reviewed date:03/30/2024 07:56:16 PM Interpretation: Performing Lab: Notes/Report: [facility] ,Paqhmg172784-116 mmol/LPotassium4.03.5-5.1 mmol/KWmgbfjkk82357-584 mmol/LCarbon Zdxatgk17.621.0-32.0 mmol/LAnion Gap16.3Vnqgist27175-082 mg/dLBlood Urea Nitrogen8.07.0-18.0 mg/dLCreatinine0.980.55-1.02 mg/dLEstimated GFR ( Shelby>60>=60 mL/min/1.73m 2Estimated GFR (Non- Caroline>60>=60 mL/min/1.73m 2BUN Creatinine Ratio8.3Fgoqbef6.38.5-10.1 mg/dLPerforming Lab:see noteML - [facility] LBMAGNESIUM Reviewed date:03/30/2024 07:56:16 PM Interpretation: Performing Lab: Notes/Report: [facility] ,Magnesium1.71.8-2.4 mg/dLPerforming Lab:see note - [facility] LB CBC AUTO DIFF Reviewed date:03/30/2024 07:56:16 PM Interpretation: Performing Lab: Notes/Report: [facility] ,White Blood Count4.64.0-11.0 10 3/uLRed Blood Count3.644.20-5.40 10 6/uL Ggujqzvwos94.112.0-16.0 g/fSJllwrqsihy51.136.0-48.0 %Mean Corpuscular Srfwsi34.2 81.0-99.0 fLMean Corpuscular Ljefkimipj53.226.7-34.0 pgMean Corpuscular HGB Conc 33.529.9-35.2 g/dLRed Cell Distribution Width12.011.0-15.0 %Platelet Icgql508 150-450 10 3/uLMean Platelet Clckmp94.09.5-13.5 fLNeutrophils Percent Auto84.8 43.0-75.0 %Lymphocytes Percent Auto13.320.5-60.0 %Monocytes Percent Auto1.31.7- 12.0 %Eosinophils Percent Auto0.00.9-7.0 %Basophils Percent Auto0.20.2-2.0 % Immature Granulocytes Pct Auto0.40.0-0.5 %Neutrophils Absolute Auto3.91.4-6.5 10 3/uLLymphocytes Absolute Auto0.61.2-3.8 10 3/uLMonocytes Absolute Auto0.10.3-0.8 10 3/uLEosinophils Absolute Auto0.00.0-0.7 10 3/uLBasophils Absolute Auto0.00.0- 0.1 10 3/uLImmature Granulocytes Abs Auto0.020.00-0.03 10 3/uLPerforming Lab:see noteML - [facility] LBUA Micro, reflex to culture Reviewed date:08/02/2024 05:29:08 PM Interpretation: Performing Lab: Notes/Report: [facility] ,Color UrineLT. YELLOWYELLOWClarity UrineCLEARCLEARSpecific [place] Urine<=1.005 1.005-1.025pH Urine6.55.0-9.0Protein UrineNEGATIVENEG/TRACE mg/dLGlucose Urine UANEGATIVENEGATIVE mg/dLBilirubin UrineNEGATIVENEGATIVEKetones UrineNEGATIVE NEGATIVE mg/dLBlood UrineNEGATIVENEGATIVENitrite UrineNEGATIVENEGATIVE Urobilinogen Urine0.20.2-1.0 EU/dLLeukocyte Esterase UrineNEGATIVENEGATIVEWBC UrineNONE SEENNONE SEEN #/HPFRBC UrineNONE SEEN0-2 #/HPFBacteria UrineTRACENONE SEEN #/HPFMucus UrineNONE SEENNONE SEENSquamous Epithelial Cell UrineFEW NONE/RARE #/LPFCrystals Seen?None SeenNone Seen #/HPFCast Seen?NONE SEENNONE SEEN #/LPFUrine Culture IndicatedNOPerforming Lab:see noteML - [facility] LBXR acute abdomen series Reviewed date:08/02/2024 05:29:08 PM Interpretation: Performing Lab: Notes/Report: Source Facility: [facility]-[address] [place] [address] [place] [address] XRay Report Signed Patient: JUAN GARCIA MR#: [id number] : 1990 Acct:[id number] Age/Sex: 34 / F ADM Date: 08/02/24 Loc: ER Attending Dr: Ordering Physician: Massimo Damon Date of Service: 08/02/24 Procedure(s): XR acute abdomen series Accession Number(s): [id number] cc: Britt Alas M.D.; Massimo Damon [place] [id number] Patient Name: JUAN GARCIA MRN: [id number] date: 1990 Sex: F Assigned Patient Location: ER Current Patient Location: ER Accession/Order Number: [id number] Exam Date: 08/02/2024 09:12 Report Date: 08/02/2024 [...] Hutchinson M.D. 08/02/2024 9:19 AM Dictation Location: [place] [address] Electronically authenticated by: [id number] Y Date: 08/02/2024 09:19 Dictated By: Maricruz Hutchinson M.D. Signed By: 08/02/24921 DD/ 8 TD/TT: Tree Doctor:PROF Hickey(COMP METB) Reviewed date:02/16/2024 03:19:17 PM Interpretation: Performing Lab: Notes/Report: HOME HEALTH NURSE [facility] ,Hmrpcn634108-162 mmol/LPotassium3.83.5-5.1 mmol/YTkumwfmn83314-146 mmol/LCarbon Iifkemx60.521.0-32.0 mmol/LAnion Gap11.8Mjdsspz8064-763 mg/dLBlood Urea Nitrogen 7.07.0-18.0 mg/dLCreatinine0.900.55-1.02 mg/dLEstimated GFR ( Shelby>60 >=60 mL/min/1.73m 2Estimated GFR (Non- Caroline>60>=60 mL/min/1.73m 2BUN Creatinine Ratio7.9Ksxwtzj1.48.5-10.1 mg/dLBilirubin Total0.30.2-1.0 mg/dL Aspartate Amino Adavbginhbf3543-14 U/LAlanine Lvftrannsepcevka0005-02 U/L Alkaline Oelcylnjmsc8422-593 U/LTotal Protein6.66.4-8.2 g/dLAlbumin Level3.63.4- 5.0 g/dLGlobulin3.0Albumin Globulin Ratio1.2Performing Lab:see note - [facility] LBLACTATE or LACTIC ACID Reviewed date:08/02/2024 05:29:08 PM Interpretation: Performing Lab: Notes/Report: Y [facility] ,Lactate/Lactic Acid1.90.4-2.0 mmol/LPerforming Lab:see note - [facility] LBPHOSPHORUS Reviewed date:02/16/2024 03:19:17 PM Interpretation: Performing Lab: Notes/Report: HOME HEALTH NURSE [facility] ,Phosphorus3.32.6-4.7 mg/dLPerforming Lab:see note - [facility] LB CBC AUTO DIFF Reviewed date:08/15/2024 06:53:10 PM Interpretation: Performing Lab: Notes/Report: [facility] ,White Blood Count12.84.0-11.0 10 3/uLRed Blood Count3.444.20-5.40 10 6/uL Hvpxmpoowf04.812.0-16.0 g/gXJbiockyezy66.436.0-48.0 %Mean Corpuscular Gdzrqa34.3 81.0-99.0 fLMean Corpuscular Bkbyykuuul49.426.7-34.0 pgMean Corpuscular HGB Conc 34.429.9-35.2 g/dLRed Cell Distribution Width13.711.0-15.0 %Platelet Pmpol468 150-450 10 3/uLMean Platelet Unrdem58.09.5-13.5 fLNeutrophils Percent Auto93.4 43.0-75.0 %Lymphocytes Percent Auto4.720.5-60.0 %Monocytes Percent Auto1.21.7- 12.0 %Eosinophils Percent Auto0.00.9-7.0 %Basophils Percent Auto0.20.2-2.0 % Immature Granulocytes Pct Auto0.50.0-0.5 %Neutrophils Absolute Auto11.91.4-6.5 10 3/uLLymphocytes Absolute Auto0.61.2-3.8 10 3/uLMonocytes Absolute Auto0.20.3- 0.8 10 3/uLEosinophils Absolute Auto0.00.0-0.7 10 3/uLBasophils Absolute Auto0.0 0.0-0.1 10 3/uLImmature Granulocytes Abs Auto0.060.00-0.03 10 3/uLPerforming Lab:see noteML - [facility] LBLACTATE or LACTIC ACID Reviewed date:08/15/2024 06:53:10 PM Interpretation: Performing Lab: Notes/Report: [facility] ,Lactate/Lactic Acid0.60.4-2.0 mmol/LPerforming Lab:see noteML - [facility] LBMAGNESIUM Reviewed date:02/16/2024 03:19:17 PM Interpretation: Performing Lab: Notes/Report: [facility] ,Magnesium1.81.8-2.4 mg/dLPerforming Lab:see noteML - [facility] LB PROF 14(COMP METB) Reviewed date:08/15/2024 06:53:11 PM Interpretation: Performing Lab: Notes/Report: [facility] ,Fnvorf631872-593 mmol/LPotassium3.83.5-5.1 mmol/CXnealexm71602-050 mmol/LCarbon Fpeygls38.521.0-32.0 mmol/LAnion Gap15.2Cdksill93042-444 mg/dLBlood Urea Mxqefkue62.07.0-18.0 mg/dLCreatinine0.610.55-1.02 mg/dLEstimated GFR ( [place]>60>=60 mL/min/1.73m 2Estimated GFR (Non- [place]>60>=60 mL/min/1.73m 2BUN Creatinine Ratio18.1Isffpvu2.28.5-10.1 mg/dLBilirubin Total0.60.2-1.0 mg/dL Aspartate Amino Mthnqbtaoip1000-68 U/LAlanine Cotmbfiewwhlbxar4228-37 U/L Alkaline Hrnlkpnzdmz32551-424 U/LTotal Protein6.26.4-8.2 g/dLAlbumin Level2.5 3.4-5.0 g/dLGlobulin3.7Albumin Globulin Ratio0.7Performing Lab:see noteML - [facility] LBUA (CLEAN or CATCH) METAL TEMPLATE MAKER or MICRO IF IND. Reviewed date:08/15/2024 06:53:11 PM Interpretation: Performing Lab: Notes/Report: [facility] ,Color UrineLT. YELLOWYELLOWClarity UrineCLEARCLEARSpecific [place] Urine1.010 1.005-1.025pH Urine6.05.0-9.0Protein UrineNEGATIVENEG/TRACE mg/dLGlucose Urine UANEGATIVENEGATIVE mg/dLBilirubin UrineNEGATIVENEGATIVEKetones Jupqt18GKTHFOHJ mg/dLBlood UrineNEGATIVENEGATIVENitrite UrineNEGATIVENEGATIVEUrobilinogen Urine 0.20.2-1.0 EU/dLLeukocyte Esterase UrineNEGATIVENEGATIVEUrine Microscopic IndicatedNOPerforming Lab:see noteML - [facility] LBTransferrin Reviewed date:02/01/2024 12:16:29 PM Interpretation: Performing Lab: Notes/Report: [facility] ,Ljkyjiixurc875967-698 mg/dL Performed at: [facility] [address] [id number] Quality Control Inspector Heading: Daron Almanza PhD, Phone: [phone] Performing Lab:see note - [facility] LBPROF 14(COMP METB) Reviewed date:01/31/2024 02:12:13 PM Interpretation: Performing Lab: Notes/Report: [facility] ,Zdfkdt332412-033 mmol/LPotassium4.03.5-5.1 mmol/GKubkfiut46558-992 mmol/LCarbon Qoyoqwk43.821.0-32.0 mmol/LAnion Gap15.7Xbvbxse87048-287 mg/dLBlood Urea Nitrogen9.07.0-18.0 mg/dLCreatinine1.010.55-1.02 mg/dLEstimated GFR ( Shelby>60>=60 mL/min/1.73m 2Estimated GFR (Non- Caroline>60>=60 mL/min/1.73m 2BUN Creatinine Ratio8.0Zazunfw1.28.5-10.1 mg/dLBilirubin Total0.30.2-1.0 mg/dL Aspartate Amino Eeipvrxllej7557-28 U/LAlanine Lxkeuoykoqlpnjws5507-65 U/L Alkaline Vhrpydqtfkw1834-760 U/LTotal Protein6.26.4-8.2 g/dLAlbumin Level3.33.4- 5.0 g/dLGlobulin2.9Albumin Globulin Ratio1.1Performing Lab:see noteML - [facility] LBPHOSPHORUS Reviewed date:01/31/2024 02:12:13 PM Interpretation: Performing Lab: Notes/Report: [facility] ,Phosphorus3.72.6-4.7 mg/dLPerforming Lab:see noteML - [facility] LB XR chest 2V Reviewed date:08/15/2024 06:53:11 PM Interpretation: Performing Lab: Notes/Report: Source Facility: [facility]-[address] [place] [address] [place] [address] XRay Report Signed Patient: JUAN GARCIA MR#: [id number] : 1990 Acct:[id number] Age/Sex: 34 / F ADM Date: 08/15/24 Loc: ER Attending Dr: Ordering Physician: Domenica Romeo Date of Service: 08/15/24 Procedure(s): XR chest 2V Accession Number(s): [id number] cc: Domenica Romeo; Britt Alas M.D. [place] [address] Patient Name: JUAN GARCIA MRN: [id number] date: 1990 Sex: F Assigned Patient Location: ER Current Patient Location: ER Accession/Order Number: [id number] Exam Date: 08/15/2024 14:21 Report Date: 08/15/2024 14:22 At the request of: DOMENICA ROMEO RAW STOCK MACHINE LOADER Procedure: XR chest 2V Chest 2 views [...] Jr., D.O. 08/15/2024 2:22 PM Dictation Location: [place] [address] Electronically authenticated by: [id number] Y Date: 08/15/2024 14:22 Dictated By: Cornel Medel M.D. Signed By: 08/15/24 1424 DD/ 1422 TD/TT: Tree Doctor:Aerobe ID + Suscept Reviewed date:08/19/2024 07:52:14 PM [...] SANDHYA Status Aerobe ID + SusceptPerformed at: [facility] Aerobe ID + Suscept O:GNR Isolated O:KLEBPN Isolated Organism: 1.2 Antibiotic Interpretation SANDHYA Status Aerobe ID + [id number] [place], [place] [id number] Aerobe ID + Suscept O:GNR Isolated O:KLEBPN Isolated Organism: 1.2 Antibiotic Interpretation SANDHYA Status Aerobe ID + SusceptLab Director: Daron Almanza PhD, Phone: [phone] Aerobe ID + Suscept O:GNR Isolated O:KLEBPN [...] LC - [facility] LB SEE REPORT - Curing Finisher Id information not found for OBX-specific news producer legend Aerobe ID + Suscept Reviewed [...] SANDHYA Status Aerobe ID + SusceptPerformed at: [facility] Aerobe ID + Suscept O:GNR Isolated O:KLEBPN Isolated Organism: 1.2 Antibiotic Interpretation SANDHYA Status Aerobe ID + [id number] [place], [place] [id number] Aerobe ID + Suscept O:GNR Isolated O:KLEBPN Isolated Organism: 1.2 Antibiotic Interpretation SANDHYA Status Aerobe ID + SusceptLab Director: Daron Almanza PhD, Phone: [phone] Aerobe ID + Suscept O:GNR Isolated O:KLEBPN [...] LC - [facility] LB SEE REPORT - Curing Finisher Id information not found for OBX-specific news producer legend CBC AUTO DIFF Reviewed date:08/16/2024 07:06:02 PM Interpretation: Performing Lab: Notes/Report: [facility] ,White Blood Count9.14.0-11.0 10 3/uLRed Blood Count3.064.20-5.40 10 6/uL Hemoglobin9.812.0-16.0 g/hIMqekzutife34.236.0-48.0 %Mean Corpuscular Otzkea79.2 81.0-99.0 fLMean Corpuscular Nzvvuajrkc13.026.7-34.0 pgMean Corpuscular HGB Conc 34.829.9-35.2 g/dLRed Cell Distribution Width13.611.0-15.0 %Platelet Ratsc185 150-450 10 3/uLMean Platelet Fbrkhf43.19.5-13.5 fLNeutrophils Percent Auto82.6 43.0-75.0 %Lymphocytes Percent Auto11.620.5-60.0 %Monocytes Percent Auto4.81.7- 12.0 %Eosinophils Percent Auto0.60.9-7.0 %Basophils Percent Auto0.10.2-2.0 % Immature Granulocytes Pct Auto0.30.0-0.5 %Neutrophils Absolute Auto7.51.4-6.5 10 3/uLLymphocytes Absolute Auto1.11.2-3.8 10 3/uLMonocytes Absolute Auto0.40.3-0.8 10 3/uLEosinophils Absolute Auto0.10.0-0.7 10 3/uLBasophils Absolute Auto0.00.0- 0.1 10 3/uLImmature Granulocytes Abs Auto0.030.00-0.03 10 3/uLPerforming Lab:see noteML - [facility] LBLACTATE or LACTIC ACID Reviewed date:08/16/2024 07:06:02 PM Interpretation: Performing Lab: Notes/Report: [facility] ,Lactate/Lactic Acid0.60.4-2.0 mmol/LPerforming Lab:see noteML - [facility] LBPROF 14(COMP METB) Reviewed date:08/16/2024 07:06:02 PM Interpretation: Performing Lab: Notes/Report: [facility] ,Hiwzad931635-628 mmol/LPotassium3.33.5-5.1 mmol/APfqokhmx74976-282 mmol/LCarbon Foxpwhm98.521.0-32.0 mmol/LAnion Gap14.0Ajhrrqf42961-532 mg/dLBlood Urea Ppahlzqo18.07.0-18.0 mg/dLCreatinine0.470.55-1.02 mg/dLEstimated GFR ( Shelby>60>=60 mL/min/1.73m 2Estimated GFR (Non- Caroline>60>=60 mL/min/1.73m 2BUN Creatinine Ratio27.5Slfwdkp4.58.5-10.1 mg/dLBilirubin Total0.70.2-1.0 mg/dL Aspartate Amino Moltrgkhbnc7341-91 U/LAlanine Ujiezvhuyfnozhbb1551-20 U/L Alkaline Jclnbmehskr42316-186 U/LTotal Protein5.86.4-8.2 g/dLAlbumin Level2.4 3.4-5.0 g/dLGlobulin3.4Albumin Globulin Ratio0.7Performing Lab:see noteML - [facility] LBAerobe ID + Suscept Reviewed date:08/21/2024 08:08:02 [...] LC - [facility] LB SEE REPORT - Curing Finisher Id information not found for OBX-specific news producer legend Aerobe ID + Suscept Reviewed [...] LC - [facility] LB SEE REPORT - Curing Finisher Id information not found for OBX-specific news producer legend Aerobe ID + Suscept Reviewed [...] SANDHYA Status Aerobe ID + SusceptPerformed at: [facility] Aerobe ID + Suscept O:GNR Isolated O:KLEBPN Isolated Organism: 1.2 Antibiotic Interpretation SANDHYA Status Aerobe ID + [id number] [place], [place] [id number] Aerobe ID + Suscept O:GNR Isolated O:KLEBPN Isolated Organism: 1.2 Antibiotic Interpretation SANDHYA Status Aerobe ID + SusceptLab Director: Daron Almanza PhD, Phone: [phone] Aerobe ID + Suscept O:GNR Isolated O:KLEBPN [...] LC - [facility] LB SEE REPORT - Curing Finisher Id information not found for OBX-specific news producer legend Aerobe ID + Suscept Reviewed [...] SANDHYA Status Aerobe ID + SusceptPerformed at: [facility] Aerobe ID + Suscept O:GNR Isolated O:KLEBPN Isolated Organism: 1.2 Antibiotic Interpretation SANDHYA Status Aerobe ID + [id number] [place], [place] [id number] Aerobe ID + Suscept O:GNR Isolated O:KLEBPN Isolated Organism: 1.2 Antibiotic Interpretation SANDHYA Status Aerobe ID + SusceptLab Director: Daron Almanza PhD, Phone: [phone] Aerobe ID + Suscept O:GNR Isolated O:KLEBPN [...] LC - [facility] LB SEE REPORT - Curing Finisher Id information not found for OBX-specific news producer legend BLOOD CULTURE ID PANEL Reviewed date:08/29/2024 05:13:56 PM Interpretation: Performing Lab: Notes/Report: [facility] ,CTX-MNOT DETECTEDNOT DETECTEIMPNOT DETECTEDNOT DETECTEKPCNOT DETECTEDNOT DETECTEmcr-1NOT DETECTEDNOT DETECTEmecA/CNOT APPLICABLENOT DETECTEmecA/C and MREJ (MRSA)NOT APPLICABLENOT DETECTENDMNOT DETECTEDNOT MWSSDXXPOM-65-upcaPCZ DETECTEDNOT DETECTEvanA/BNOT APPLICABLENOT DETECTEVIMNOT DETECTEDNOT DETECTE SourceBLOODEnterococcus [...] DETECTEDNOT DETECTE Cryptococcus neoformans/gattiiNOT DETECTEDNOT DETECTEPerforming Lab:see note - [facility] LBDRUG SCREEN RAPID (URINE) Reviewed date:08/28/2024 06:06:36 PM Interpretation: Performing Lab: Notes/Report: [facility] ,Cannabinoid Screen UrineNEGATIVENEGATIVEPhencyclidine Screen UrineNEGATIVE NEGATIVECocaine [...] Antidepressants): 300 ng/mL Performing Lab:see note - [facility] LBLACTATE or LACTIC ACID Reviewed date:08/28/2024 06:06:36 PM Interpretation: Performing Lab: Notes/Report: [facility] ,Lactate/Lactic Acid1.40.4-2.0 mmol/LPerforming Lab:see note - [facility] LBLIPASE Reviewed date:08/28/2024 06:06:36 PM Interpretation: Performing Lab: Notes/Report: [facility] ,Qektfd68.016.0-77.0 U/LPerforming Lab:see note - [facility] LBUA (CLEAN or CATCH) METAL TEMPLATE MAKER or MICRO IF IND. Reviewed date:08/28/2024 06:06:36 PM Interpretation: Performing Lab: Notes/Report: [facility] ,Color UrineLT. YELLOWYELLOWClarity UrineCLEARCLEARSpecific [place] Urine1.015 1.005-1.025pH Urine6.05.0-9.0Protein UrineNEGATIVENEG/TRACE mg/dLGlucose Urine UANEGATIVENEGATIVE mg/dLBilirubin UrineNEGATIVENEGATIVEKetones UrineNEGATIVE NEGATIVE mg/dLBlood UrineNEGATIVENEGATIVENitrite UrineNEGATIVENEGATIVE Urobilinogen Urine0.20.2-1.0 EU/dLLeukocyte Esterase UrineNEGATIVENEGATIVEUrine Microscopic IndicatedNOPerforming Lab:see noteML - [facility] LB Manual Differential Reviewed date:08/28/2024 06:06:36 PM Interpretation: Performing Lab: Notes/Report: [facility] ,Segmented Neutrophils % Inyvsh72.043.0-75.0Lymphocytes Percent Qrdzvu49.020.5- 60.0 %Monocytes Percent Manual2.01.7-12.0 %Eosinophils Percent Manual0.00.9-7.0 %Basophils Percent Manual2.00.2-2.0 %Segmented Neut Absolute Manual4.471.4-6.5 10 3/uLLymphocytes Absolute Manual0.521.20-3.80 10 3/uLMonocytes Absolute Manual 0.100.30-0.80 10 3/uLEosinophils Absolute Manual0.000.00-0.70 10 3/uLBasophils Abs Manual0.100.00-0.10 10 3/uLPerforming Lab:see noteML - [facility] LBMAGNESIUM Reviewed date:01/31/2024 02:12:13 PM Interpretation: Performing Lab: Notes/Report: [facility] ,Magnesium1.61.8-2.4 mg/dLPerforming Lab:see noteML - [facility] LB CBC AUTO DIFF Reviewed date:01/31/2024 02:12:13 PM Interpretation: Performing Lab: Notes/Report: [facility] ,White Blood Count5.34.0-11.0 10 3/uLRed Blood Count3.804.20-5.40 10 6/uL Xcbefgowoe84.712.0-16.0 g/mHCaarrmwxve84.436.0-48.0 %Mean Corpuscular Cmjbuo58.8 81.0-99.0 fLMean Corpuscular Zpleylebag95.826.7-34.0 pgMean Corpuscular HGB Conc 32.129.9-35.2 g/dLRed Cell Distribution Width15.911.0-15.0 %Platelet Uysik931 150-450 10 3/uLMean Platelet Xvityj40.79.5-13.5 fLNeutrophils Percent Auto78.1 43.0-75.0 %Lymphocytes Percent Auto18.420.5-60.0 %Monocytes Percent Auto2.31.7- 12.0 %Eosinophils Percent Auto0.40.9-7.0 %Basophils Percent Auto0.60.2-2.0 % Immature Granulocytes Pct Auto0.20.0-0.5 %Neutrophils Absolute Auto4.11.4-6.5 10 3/uLLymphocytes Absolute Auto1.01.2-3.8 10 3/uLMonocytes Absolute Auto0.10.3-0.8 10 3/uLEosinophils Absolute Auto0.00.0-0.7 10 3/uLBasophils Absolute Auto0.00.0- 0.1 10 3/uLImmature Granulocytes Abs Auto0.010.00-0.03 10 3/uLPerforming Lab:see noteML - [facility] LBECG 12 lead Reviewed date:08/30/2024 05:17:51 PM Interpretation: Performing Lab: Notes/Report: Source Facility: [facility]-[address] [place] [address] [place] [address] Electrocardiograph Report Signed Patient: JUAN GARCIA MR#: [id number] : 1990 Acct:[id number] Age/Sex: 34 / F ADM Date: 08/28/24 Loc: [place] 218-[address]: Kal Wilson M.D. 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1990 Requested By: [id number] Order Number: [id number] Reading MD: KATIE ALTAMIRANO Measurements Intervals Alpha Rate: 131 P: 99 HI: 124 QRS: [...] Signed By: 08/30/24 1325 DD/ 1420 TD/TT: Tree Doctor:XR chest 2V Reviewed date:08/28/2024 06:06:36 PM Interpretation: Performing Lab: Notes/Report: Source Facility: [place] [address] XRay Report Signed Patient: JUAN GARCIA MR#: [id number] : 1990 Acct:[id number] Age/Sex: 34 / F ADM Date: 08/28/24 Loc: ER Attending Dr: Ordering Physician: Domenica Romeo Date of Service: 08/28/24 Procedure(s): XR chest 2V Accession Number(s): [id number] cc: Domenica Romeo; Britt Alas M.D. [place] [address] Patient Name: JUAN GARCIA MRN: [id number] date: 1990 Sex: F Assigned Patient Location: ER Current Patient Location: ER Accession/Order Number: [id number] Exam Date: 08/28/2024 16:39 Report Date: 08/28/2024 16:40 At the request of: DOMENICA ROMEO RAW STOCK MACHINE LOADER Procedure: XR chest 2V XR chest 2V [...] Hutchinson M.D. 08/28/2024 4:40 PM Dictation Location: [place] [address] Electronically authenticated by: [id number] Y Date: 08/28/2024 16:40 Dictated By: Roddy Hutchinson M.D. Signed By: 08/28/24 1642 DD/ 1640 TD/TT: Tree Doctor:CT abdomen pelvis w con Reviewed date:08/28/2024 06:06:36 PM Interpretation: Performing Lab: Notes/Report: Source Facility: [place] [address] CT Scan Report Signed Patient: JUAN GARCAI MR#: [id number] : 1990 Acct:[id number] Age/Sex: 34 / F ADM Date: 08/28/24 Loc: ER Attending Dr: Ordering Physician: Domenica Romeo Date of Service: 08/28/24 Procedure(s): CT abdomen pelvis w con Accession Number(s): [id number] cc: Britt Alas M.D. [place] [address] Patient Name: JUAN GARCIA MRN: [id number] date: 1990 Sex: F Assigned Patient Location: ER Current Patient Location: ER Accession/Order Number: [id number] Exam Date: 08/28/2024 16:40 Report Date: 08/28/2024 16:46 At the request of: DOMENICA ROMEO RAW STOCK MACHINE LOADER Procedure: CT abdomen pelvis w con CT [...] Hutchinson M.D. 08/28/2024 4:46 PM Dictation Location: [place] [address] Electronically authenticated by: [id number] Y Date: 08/28/2024 16:46 Dictated By: Roddy Hutchinson M.D. Signed By: 08/28/24 1649 DD/ 45 TD/TT: Tree Doctor:PROF Hickey(COMP METB) Reviewed date:01/20/2024 03:46:41 PM Interpretation: Performing Lab: Notes/Report: [facility] ,Nsbqzl899031-228 mmol/LPotassium4.03.5-5.1 mmol/QIjsrixxa57932-144 mmol/LCarbon Gjphcfl81.921.0-32.0 mmol/LAnion Gap15.0Qyknbmv0529-188 mg/dLBlood Urea Nitrogen 7.07.0-18.0 mg/dLCreatinine0.850.55-1.02 mg/dLEstimated GFR ( Shelby>60 >=60 mL/min/1.73m 2Estimated GFR (Non- Caroline>60>=60 mL/min/1.73m 2BUN Creatinine Ratio8.7Hjrmadt3.48.5-10.1 mg/dLBilirubin Total0.30.2-1.0 mg/dL Aspartate Amino Gpzqkiemdim5309-73 U/LAlanine Xtltizcuohokncdg8215-88 U/L Alkaline Mxlxwhgtblp4160-365 U/LTotal Protein6.36.4-8.2 g/dLAlbumin Level3.63.4- 5.0 g/dLGlobulin2.7Albumin Globulin Ratio1.3Performing Lab:see noteML - [facility] LBCBC AUTO DIFF Reviewed date:08/29/2024 05:13:55 PM Interpretation: Performing Lab: Notes/Report: [facility] ,White Blood Count5.84.0-11.0 10 3/uLRed Blood Count3.554.20-5.40 10 6/uL Hxoufzstre14.912.0-16.0 g/mCRafeayosvj80.536.0-48.0 %Mean Corpuscular Jbkxyo75.5 81.0-99.0 fLMean Corpuscular Sfzacqgrlp13.726.7-34.0 pgMean Corpuscular HGB Conc 33.529.9-35.2 g/dLRed Cell Distribution Width13.911.0-15.0 %Platelet Hgvlp819 150-450 10 3/uLMean Platelet Fytfxh71.29.5-13.5 fLNeutrophils Percent Auto60.6 43.0-75.0 %Lymphocytes Percent Auto26.520.5-60.0 %Monocytes Percent Auto10.21.7- 12.0 %Eosinophils Percent Auto1.20.9-7.0 %Basophils Percent Auto1.20.2-2.0 % Immature Granulocytes Pct Auto0.30.0-0.5 %Neutrophils Absolute Auto3.51.4-6.5 10 3/uLLymphocytes Absolute Auto1.51.2-3.8 10 3/uLMonocytes Absolute Auto0.60.3-0.8 10 3/uLEosinophils Absolute Auto0.10.0-0.7 10 3/uLBasophils Absolute Auto0.10.0- 0.1 10 3/uLImmature Granulocytes Abs Auto0.020.00-0.03 10 3/uLPerforming Lab:see noteML - [facility] LBMAGNESIUM Reviewed date:08/29/2024 05:13:55 PM Interpretation: Performing Lab: Notes/Report: [facility] ,Magnesium1.71.8-2.4 mg/dLPerforming Lab:see noteML - [facility] LB PHOSPHORUS Reviewed date:08/29/2024 05:13:55 PM Interpretation: Performing Lab: Notes/Report: [facility] ,Phosphorus2.82.6-4.7 mg/dLPerforming Lab:see noteML - [facility] LB PROF 14(COMP METB) Reviewed date:08/29/2024 05:13:56 PM Interpretation: Performing Lab: Notes/Report: [facility] ,Diyvob428799-338 mmol/LPotassium3.63.5-5.1 mmol/ECtohyetz72374-477 mmol/LCarbon Sogwfdi99.221.0-32.0 mmol/LAnion Gap13.5Krvvxmr3317-554 mg/dLBlood Urea Nitrogen 6.07.0-18.0 mg/dLCreatinine0.520.55-1.02 mg/dLEstimated GFR ( Shelby>60 >=60 mL/min/1.73m 2Estimated GFR (Non- Caroline>60>=60 mL/min/1.73m 2BUN Creatinine Ratio11.6Brbwavc1.98.5-10.1 mg/dLBilirubin Total0.40.2-1.0 mg/dL Aspartate Amino Xnjhhzcitof7971-24 U/LAlanine Rykmasrvfflsegys0667-77 U/L Alkaline Mfnboxexnmv7338-176 U/LTotal Protein5.46.4-8.2 g/dLAlbumin Level2.33.4- 5.0 g/dLGlobulin3.1Albumin Globulin Ratio0.7Performing Lab:see noteML - [facility] LBECG 12 lead Reviewed date:08/30/2024 05:17:51 PM Interpretation: Performing Lab: Notes/Report: Source Facility: [facility]-[address] [place] [address] Electrocardiograph Report Signed Patient: JUAN GARCIA MR#: [id number] : 1990 Acct:[id number] Age/Sex: 34 / F ADM Date: 08/28/24 Loc: [place] [address]: Kal Wilson M.D. Ordering Physician: Kal Wilson M.D. 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 Signed By: 08/30/24 1330 DD/ 0528 TD/TT: Tree Doctor:Blood Culture 1 Reviewed date:09/04/2024 07:21:01 PM Interpretation: Performing Lab: Notes/Report: LEFT UPPER ARM [facility] ,Blood Culture 1See Below For Report Blood Culture 1 NG5D NO GROWTH AT 5 DAYS.^NO GROWTH AT 5 DAYS. Performing Lab:see [facility] LBBlood Culture 2 Reviewed date:09/04/2024 07:21:01 PM Interpretation: Performing Lab: Notes/Report: [place] [facility] ,Blood Culture 2See Below For Report NG5D NO GROWTH AT 5 DAYS.^NO GROWTH AT 5 DAYS. Blood Culture 2 Performing [facility] LBPHOSPHORUS Reviewed date:01/20/2024 03:46:41 PM Interpretation: Performing Lab: Notes/Report: [facility] [employer] [facility] ,Phosphorus3.52.6-4.7 mg/dLPerforming Lab:see [facility] LB MAGNESIUM Reviewed date:01/20/2024 03:46:41 PM Interpretation: Performing Lab: Notes/Report: [place] [employer] [facility] ,Magnesium1.71.8-2.4 mg/dLPerforming Lab:see [facility] LB CBC AUTO DIFF Reviewed date:01/20/2024 03:46:41 PM Interpretation: Performing Lab: Notes/Report: [facility] ,White Blood Count5.74.0-11.0 10 3/uLRed Blood Count4.024.20-5.40 10 6/uL Eqrehzbkoi07.412.0-16.0 g/wPMgzcmmkmiq30.736.0-48.0 %Mean Corpuscular Dkcyrz91.3 81.0-99.0 fLMean Corpuscular Lfjzjinhuu83.826.7-34.0 pgMean Corpuscular HGB Conc 33.829.9-35.2 g/dLRed Cell Distribution Width16.711.0-15.0 %Platelet Aiwal186 150-450 10 3/uLMean Platelet Izmwpt19.29.5-13.5 fLNeutrophils Percent Auto81.6 43.0-75.0 %Lymphocytes Percent Auto14.620.5-60.0 %Monocytes Percent Auto2.81.7- 12.0 %Eosinophils Percent Auto0.40.9-7.0 %Basophils Percent Auto0.40.2-2.0 % Immature Granulocytes Pct Auto0.20.0-0.5 %Neutrophils Absolute Auto4.71.4-6.5 10 3/uLLymphocytes Absolute Auto0.81.2-3.8 10 3/uLMonocytes Absolute Auto0.20.3-0.8 10 3/uLEosinophils Absolute Auto0.00.0-0.7 10 3/uLBasophils Absolute Auto0.00.0- 0.1 10 3/uLImmature Granulocytes Abs Auto0.010.00-0.03 10 3/uLPerforming Lab:see noteML - [facility] LBXR abdomen 1V Reviewed date:01/17/2024 01:32:20 PM Interpretation: Performing Lab: Notes/Report: Source Facility: [facility]-[address] [place] [address] [place] [address] XRay Report Signed Patient: JUAN GARCIA MR#: [id number] : 1990 Acct:[id number] Age/Sex: 33 / F ADM Date: 01/17/24 Loc: ER Attending Dr: Ordering Physician: Leslie Terrazas M.D. Date of Service: 01/17/24 Procedure(s): XR abdomen 1V Accession Number(s): [id number] cc: Britt Alas M.D.; Leslie Terrazas M.D. [place] [address] Patient Name: JUAN GARCIA MRN: [id number] date: 1990 Sex: F Assigned Patient Location: ER Current Patient Location: ER Accession/Order Number: [id number] Exam Date: 01/17/2024 12:55 Report Date: 01/17/2024 [...] M.D. Signed By: 01/17/241328 DD/ 25 TD/TT: Tree Doctor:PROF Hickey(COMP METB) Reviewed date:01/06/2024 01:36:15 PM Interpretation: Performing Lab: Notes/Report: [facility] DROP OFF [facility] ,Rgkyam067255-463 mmol/LPotassium3.63.5-5.1 mmol/ZSqyezrvn92635-536 mmol/LCarbon Qygxswc31.121.0-32.0 mmol/LAnion Gap15.3Xcpxzgq44580-206 mg/dLBlood Urea Nitrogen7.07.0-18.0 mg/dLCreatinine0.860.55-1.02 mg/dLEstimated GFR ( Shelby>60>=60 mL/min/1.73m 2Estimated GFR (Non- Caroline>60>=60 mL/min/1.73m 2BUN Creatinine Ratio8.3Bjlicpq8.58.5-10.1 mg/dLBilirubin Total0.30.2-1.0 mg/dL Aspartate Amino Xvamlvfonvo0690-40 U/LAlanine Qwmofrawcmoalnuj6324-86 U/L Alkaline Fzfxywabtsx9537-070 U/LTotal Protein6.36.4-8.2 g/dLAlbumin Level3.43.4- 5.0 g/dLGlobulin2.9Albumin Globulin Ratio1.2Performing Lab:see noteML - [facility] LBCBC AUTO DIFF Reviewed date:09/17/2024 07:49:06 PM Interpretation: Performing Lab: Notes/Report: [facility] ,White Blood Count4.64.0-11.0 10 3/uLRed Blood Count3.804.20-5.40 10 6/uL Ywudiqdira59.312.0-16.0 g/wUArkjdsvroo42.836.0-48.0 %Mean Corpuscular Qrluig64.9 81.0-99.0 fLMean Corpuscular Iiiexsoavw13.726.7-34.0 pgMean Corpuscular HGB Conc 33.429.9-35.2 g/dLRed Cell Distribution Width14.011.0-15.0 %Platelet Oliaz087 150-450 10 3/uLMean Platelet Mkfuar18.39.5-13.5 fLNeutrophils Percent Auto43.9 43.0-75.0 %Lymphocytes Percent Auto43.620.5-60.0 %Monocytes Percent Auto9.01.7- 12.0 %Eosinophils Percent Auto2.60.9-7.0 %Basophils Percent Auto0.70.2-2.0 % Immature Granulocytes Pct Auto0.20.0-0.5 %Neutrophils Absolute Auto2.01.4-6.5 10 3/uLLymphocytes Absolute Auto2.01.2-3.8 10 3/uLMonocytes Absolute Auto0.40.3-0.8 10 3/uLEosinophils Absolute Auto0.10.0-0.7 10 3/uLBasophils Absolute Auto0.00.0- 0.1 10 3/uLImmature Granulocytes Abs Auto0.010.00-0.03 10 3/uLPerforming Lab:see noteML - [facility] LBLACTATE or LACTIC ACID Reviewed date:09/17/2024 07:49:06 PM Interpretation: Performing Lab: Notes/Report: [facility] ,Lactate/Lactic Acid0.60.4-2.0 mmol/LPerforming Lab:see noteML - [facility] LBMAGNESIUM Reviewed date:09/17/2024 07:49:06 PM Interpretation: Performing Lab: Notes/Report: [facility] ,Magnesium1.71.8-2.4 mg/dLPerforming Lab:see noteML - [facility] LB PROF CHEM 8 (BAS METB) Reviewed date:09/17/2024 07:49:06 PM Interpretation: Performing Lab: Notes/Report: [facility] ,[id number] mmol/LPotassium3.63.5-5.1 mmol/JKcgokpps10644-718 mmol/LCarbon Oenkjqe78.521.0-32.0 mmol/LAnion Gap14.0Hdhmzfk4387-180 mg/dLBlood Urea Nitrogen 6.07.0-18.0 mg/dLCreatinine0.660.55-1.02 mg/dLEstimated GFR ( [place]>60 >=60 mL/min/1.73m 2Estimated GFR (Non- [place]>60>=60 mL/min/1.73m 2BUN Creatinine Ratio9.7Qbnjunp6.48.5-10.1 mg/dLPerforming Lab:see noteML - [facility] LBUA RANDOM W or MICROSCOPIC Reviewed date:09/17/2024 07:49:06 PM Interpretation: Performing Lab: Notes/Report: [facility] ,Color UrineYELLOWYELLOWClarity UrineCLEARCLEARSpecific [place] Urine1.020 1.005-1.025pH Urine6.05.0-9.0Protein UrineNEGATIVENEG/TRACE mg/dLGlucose Urine UANEGATIVENEGATIVE mg/dLBilirubin UrineNEGATIVENEGATIVEKetones UrineTRACE NEGATIVE mg/dLBlood UrineNEGATIVENEGATIVENitrite UrineNEGATIVENEGATIVE Urobilinogen Urine0.20.2-1.0 EU/dLLeukocyte Esterase UrineNEGATIVENEGATIVEWBC UrineNONE SEENNONE SEEN #/HPFRBC Urine0-20-2 #/HPFBacteria UrineTRACENONE SEEN #/HPFMucus UrineNONE SEENNONE SEENSquamous Epithelial Cell UrineMANYNONE/RARE #/LPFCrystals Seen?None SeenNone Seen #/HPFCast Seen?NONE SEENNONE SEEN #/LPF Urine Culture IndicatedNOPerforming Lab:see noteML - [facility] LBECG 12 lead Reviewed date:09/17/2024 07:49:06 PM Interpretation: Performing Lab: Notes/Report: Source Facility: [facility]-[address] [place] [address] [place] [address] Electrocardiograph Report Signed Patient: JUAN GARCIA MR#: [id number] : 1990 Acct:[id number] Age/Sex: 34 / F ADM Date: 09/15/24 Loc: ER Attending Dr: Ordering Physician: Leslie Terrazas M.D. 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 Measurements Intervals Alpha Rate: 97 P: 90 HI: 136 QRS: 92 QRSD: 82 T: 18 QT: 356 QTc: 411 Interpretive Statements 1100 Sinus rhythm 4068 Nonspecific Twave abnormality 7102 Moderate right axis deviation Abnormal ECG Compared to ECG 08/29/2024 05:28:41 Right-axis deviation now present Electronically Signed On 09-15-2024 18:32:41 EDT by JAMES HODGES M.D. 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 Date of Service: 09/15/24 Procedure(s): XR chest 1V Accession Number(s): [id number] cc: Britt Alas M.D.; Leslie Terrazas M.D. [place] [address] Patient Name: JUAN GARCIA MRN: [facility]:[id number] date: 1990 Sex: F Assigned Patient Location: ER Current Patient Location: ER Accession/Order Number: [id number] Exam Date: 09/15/2024 17:03 Report Date: 09/15/2024 [...] Lundberg M.D. 09/15/2024 5:04 PM Dictation Location: [place] [address] Electronically authenticated by: [id number] Y Date: 09/15/2024 17:04 Dictated By: Tio Lundberg M.D. Signed By: 09/15/241706 DD/ 03 TD/TT: Tree Doctor:PHOSPHORUS Reviewed date:01/06/2024 01:36:15 PM Interpretation: Performing Lab: Notes/Report: [facility] HOME HEALTH DROP OFF [facility] ,Phosphorus3.32.6-4.7 mg/dLPerforming Lab:see note - [facility] LB CRP Reviewed date:09/20/2024 12:30:47 PM Interpretation: Performing Lab: Notes/Report: [facility] ,C Reactive Protein<0.50<=0.50 mg/dLPerforming Lab:see noteML - [facility] LBMAGNESIUM Reviewed date:01/06/2024 01:36:15 PM Interpretation: Performing Lab: Notes/Report: [facility] HOME HEALTH DROP OFF [facility] ,Magnesium1.71.8-2.4 mg/dLPerforming Lab:see note - [facility] LB PROF 14(COMP METB) Reviewed date:12/22/2023 09:03:29 PM Interpretation: Performing Lab: Notes/Report: HOME HEALTH ADROP OFF [facility] ,Kxaiae318216-202 mmol/LPotassium4.23.5-5.1 mmol/RQlskabdr79298-286 mmol/LCarbon Hvznetn12.721.0-32.0 mmol/LAnion Gap12.8Ucfnyyc4298-281 mg/dLBlood Urea Nitrogen 8.07.0-18.0 mg/dLCreatinine0.900.55-1.02 mg/dLEstimated GFR ( Shelby>60 >=60 mL/min/1.73m 2Estimated GFR (Non- Caroline>60>=60 mL/min/1.73m 2BUN Creatinine Ratio8.8Otedrwq5.08.5-10.1 mg/dLBilirubin Total0.30.2-1.0 mg/dL Aspartate Amino Vuqargtonkg4785-50 U/LAlanine Htgsnvsmxweihncx5718-11 U/L Alkaline Lzyhkxtlqmf5606-129 U/LTotal Protein6.76.4-8.2 g/dLAlbumin Level3.63.4- 5.0 g/dLGlobulin3.1Albumin Globulin Ratio1.2Performing Lab:see noteML - [facility] LBUA Micro, reflex to culture Reviewed date:09/20/2024 12:30:47 PM Interpretation: Performing Lab: Notes/Report: [facility] ,Color UrineLT. YELLOWYELLOWClarity UrineCLEARCLEARSpecific [place] Urine1.010 1.005-1.025pH Urine6.55.0-9.0Protein UrineNEGATIVENEG/TRACE mg/dLGlucose Urine UANEGATIVENEGATIVE mg/dLBilirubin UrineNEGATIVENEGATIVEKetones UrineNEGATIVE NEGATIVE mg/dLBlood UrineNEGATIVENEGATIVENitrite UrineNEGATIVENEGATIVE Urobilinogen Urine0.20.2-1.0 EU/dLLeukocyte Esterase UrineNEGATIVENEGATIVEWBC UrineNONE SEENNONE SEEN #/HPFRBC UrineNONE SEEN0-2 #/HPFBacteria UrineNONE SEEN NONE SEEN #/HPFMucus UrineNONE SEENNONE SEENSquamous Epithelial Cell UrineRARE NONE/RARE #/LPFCrystals Seen?None SeenNone Seen #/HPFCast Seen?NONE SEENNONE SEEN #/LPFUrine Culture IndicatedNOPerforming Lab:see noteML - [facility] LBBlood Culture 1 Reviewed date:10/10/2024 07:54:38 PM Interpretation: Performing Lab: Notes/Report: [facility] ,Blood Culture 1See Below For Report Blood Culture 1 NG5D NO GROWTH AT 5 DAYS.^NO GROWTH AT 5 DAYS. Performing Lab:see [facility] LBBlood Culture 2 Reviewed date:10/10/2024 07:54:38 PM Interpretation: Performing Lab: Notes/Report: PEDS BOTTLE [facility] ,Blood Culture 2See Below For Report Blood Culture 2 NG5D NO GROWTH AT 5 DAYS.^NO GROWTH AT 5 DAYS. Performing Lab:see [facility] LBPHOSPHORUS Reviewed date:12/22/2023 09:03:29 PM Interpretation: Performing Lab: Notes/Report: HOME HEALTH ADROP OFF [facility] ,Phosphorus2.02.6-4.7 mg/dLPerforming Lab:see [facility] LB MAGNESIUM Reviewed date:12/22/2023 09:03:29 PM Interpretation: Performing Lab: Notes/Report: HOME HEALTH ADROP OFF [facility] ,Magnesium2.01.8-2.4 mg/dLPerforming Lab:see [facility] LB GLYCOHEMOGLOBIN A1C Reviewed date:12/22/2023 09:03:29 PM Interpretation: Performing Lab: Notes/Report: HOME HEALTH ADROP OFF [facility] ,Glycohemoglobin A1C4.84.5-6.2 % ADA RECOMMENDED LIMIT 4.0 - 6.0 ADA THERAPEUTIC TARGET < 7.0 ACTION SUGGESTED > 7.0 Estimated Average Hxakexf45Yzaofvnljg Lab:see [facility] LB UA RANDOM W or MICROSCOPIC Reviewed date:10/24/2024 02:11:49 PM Interpretation: Performing Lab: Notes/Report: [facility] ,Color UrineLT. YELLOWYELLOWClarity UrineCLEARCLEARSpecific [place] Urine<=1.005 1.005-1.025pH Urine6.05.0-9.0Protein UrineNEGATIVENEG/TRACE mg/dLGlucose Urine UANEGATIVENEGATIVE mg/dLBilirubin UrineNEGATIVENEGATIVEKetones UrineNEGATIVE NEGATIVE mg/dLBlood UrineNEGATIVENEGATIVENitrite UrineNEGATIVENEGATIVE Urobilinogen Urine0.20.2-1.0 EU/dLLeukocyte Esterase UrineNEGATIVENEGATIVEWBC Urine0-2NONE SEEN #/HPFRBC Urine0-20-2 #/HPFBacteria UrineTRACENONE SEEN #/HPF Mucus UrineNONE SEENNONE SEENSquamous Epithelial Cell UrineFEWNONE/RARE #/LPF Crystals Seen?None SeenNone Seen #/HPFCast Seen?NONE SEENNONE SEEN #/LPFUrine Culture IndicatedNOPerforming Lab:see noteML - [facility] LBECG 12 lead Reviewed date:10/26/2024 07:01:06 PM Interpretation: Performing Lab: Notes/Report: Source Facility: [place] [address] Electrocardiograph Report Signed Patient: JUAN GARCIA MR#: [id number] : 1990 Acct:[id number] Age/Sex: 34 / F ADM Date: 10/24/24 Loc: ER Attending Dr: Ordering Physician: Leslie Terrazas M.D. 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 Blood Culture 1 Performing Lab:see noteML - [facility] LBBlood Culture 2 Reviewed date:10/31/2024 05:15:55 PM Interpretation: Performing Lab: Notes/Report: AEROBIC BOTTLE ONLY [facility] ,Blood Culture 2See Below For Report NG5D NO GROWTH AT 5 DAYS.^NO GROWTH AT 5 DAYS. Blood Culture 2 Performing Lab:see note - [facility] LBCBC AUTO DIFF Reviewed date:10/29/2024 12:41:46 PM Interpretation: Performing Lab: Notes/Report: [facility] ,White Blood Count3.44.0-11.0 10 3/uLRed Blood Count3.934.20-5.40 10 6/uL Xthftpbfeo88.612.0-16.0 g/aAFvbwizyvmo57.536.0-48.0 %Mean Corpuscular Gxraul38.8 81.0-99.0 fLMean Corpuscular Bvjigryajn14.526.7-34.0 pgMean Corpuscular HGB Conc 33.629.9-35.2 g/dLRed Cell Distribution Width13.411.0-15.0 %Platelet Ikyod858 150-450 10 3/uLMean Platelet Aglxlh21.39.5-13.5 fLNeutrophils Percent Auto47.0 43.0-75.0 %Lymphocytes Percent Auto43.820.5-60.0 %Monocytes Percent Auto7.71.7- 12.0 %Eosinophils Percent Auto1.20.9-7.0 %Basophils Percent Auto0.30.2-2.0 % Immature Granulocytes Pct Auto0.00.0-0.5 %Neutrophils Absolute Auto1.61.4-6.5 10 3/uLLymphocytes Absolute Auto1.51.2-3.8 10 3/uLMonocytes Absolute Auto0.30.3-0.8 10 3/uLEosinophils Absolute Auto0.00.0-0.7 10 3/uLBasophils Absolute Auto0.00.0- 0.1 10 3/uLImmature Granulocytes Abs Auto0.000.00-0.03 10 3/uLPerforming Lab:see note - [facility] LBLIPASE Reviewed date:10/29/2024 12:41:46 PM Interpretation: Performing Lab: Notes/Report: [facility] ,Dpasmb95.016.0-77.0 U/LPerforming Lab:see note - [facility] LB MAGNESIUM Reviewed date:10/29/2024 12:41:46 PM Interpretation: Performing Lab: Notes/Report: [facility] ,Magnesium1.71.8-2.4 mg/dLPerforming Lab:[facility](COMP METB) Reviewed date:10/29/2024 12:41:46 PM Interpretation: Performing Lab: Notes/Report: [facility] ,Plbski899335-315 mmol/LPotassium3.63.5-5.1 mmol/MWyolrnef57621-213 mmol/LCarbon Qhzqhto14.721.0-32.0 mmol/LAnion Gap13.9Hagidfs2534-489 mg/dLBlood Urea Nitrogen 5.07.0-18.0 mg/dLCreatinine0.660.55-1.02 mg/dLEstimated GFR ( Shelby>60 >=60 mL/min/1.73m 2Estimated GFR (Non- Caroline>60>=60 mL/min/1.73m 2BUN Creatinine Ratio7.8Fpgtqdk0.18.5-10.1 mg/dLBilirubin Total0.40.2-1.0 mg/dL Aspartate Amino Fvcmvhconyf2262-84 U/LAlanine Jprfwprnsfjyobpo6204-76 U/L Alkaline Eqiygznpemr2935-800 U/LTotal Protein6.56.4-8.2 g/dLAlbumin Level3.53.4- 5.0 g/dLGlobulin3.0Albumin Globulin Ratio1.2Performing Lab:see note - [facility] LBCBC AUTO DIFF Reviewed date:12/22/2023 09:03:29 PM Interpretation: Performing Lab: Notes/Report: HOME HEALTH ADROP OFF [facility] ,White Blood Count4.94.0-11.0 10 3/uLRed Blood Count4.414.20-5.40 10 6/uL Xkzbjipnym46.812.0-16.0 g/aRPjyuyoljec46.536.0-48.0 %Mean Corpuscular Kayada23.8 81.0-99.0 fLMean Corpuscular Kwckewrvmt98.026.7-34.0 pgMean Corpuscular HGB Conc 31.629.9-35.2 g/dLRed Cell Distribution Width19.311.0-15.0 %Platelet Mvaom465 150-450 10 3/uLMean Platelet Kwjtld11.79.5-13.5 fLNeutrophils Percent Auto77.1 43.0-75.0 %Lymphocytes Percent Auto16.820.5-60.0 %Monocytes Percent Auto4.31.7- 12.0 %Eosinophils Percent Auto0.80.9-7.0 %Basophils Percent Auto0.80.2-2.0 % Immature Granulocytes Pct Auto0.20.0-0.5 %Neutrophils Absolute Auto3.81.4-6.5 10 3/uLLymphocytes Absolute Auto0.81.2-3.8 10 3/uLMonocytes Absolute Auto0.20.3-0.8 10 3/uLEosinophils Absolute Auto0.00.0-0.7 10 3/uLBasophils Absolute Auto0.00.0- 0.1 10 3/uLImmature Granulocytes Abs Auto0.010.00-0.03 10 3/uLPerforming Lab:see noteML - [facility] LBCBC AUTO DIFF Reviewed date:10/30/2024 01:16:30 PM Interpretation: Performing Lab: Notes/Report: [facility] ,White Blood Count4.54.0-11.0 10 3/uLRed Blood Count3.884.20-5.40 10 6/uL Jfxpgmgvdz96.712.0-16.0 g/nWSrztubximb35.736.0-48.0 %Mean Corpuscular Piusdt30.4 81.0-99.0 fLMean Corpuscular Fhhjsumrzt71.226.7-34.0 pgMean Corpuscular HGB Conc 33.729.9-35.2 g/dLRed Cell Distribution Width13.211.0-15.0 %Platelet Kdpum244 150-450 10 3/uLMean Platelet Qrcbwr35.29.5-13.5 fLNeutrophils Percent Auto49.5 43.0-75.0 %Lymphocytes Percent Auto41.020.5-60.0 %Monocytes Percent Auto7.71.7- 12.0 %Eosinophils Percent Auto0.90.9-7.0 %Basophils Percent Auto0.90.2-2.0 % Immature Granulocytes Pct Auto0.00.0-0.5 %Neutrophils Absolute Auto2.31.4-6.5 10 3/uLLymphocytes Absolute Auto1.91.2-3.8 10 3/uLMonocytes Absolute Auto0.40.3-0.8 10 3/uLEosinophils Absolute Auto0.00.0-0.7 10 3/uLBasophils Absolute Auto0.00.0- 0.1 10 3/uLImmature Granulocytes Abs Auto0.000.00-0.03 10 3/uLPerforming Lab:see noteML - [facility] LBPROF 14(COMP METB) Reviewed date:10/30/2024 01:16:30 PM Interpretation: Performing Lab: Notes/Report: [facility] ,Agwnnd760226-102 mmol/LPotassium3.83.5-5.1 mmol/BFwlvdwtj18664-423 mmol/LCarbon Joudbho68.821.0-32.0 mmol/LAnion Gap13.3Niljaju6795-090 mg/dLBlood Urea Nitrogen 4.07.0-18.0 mg/dLCreatinine0.650.55-1.02 mg/dLEstimated GFR ( Shelby>60 >=60 mL/min/1.73m 2Estimated GFR (Non- Caroline>60>=60 mL/min/1.73m 2BUN Creatinine Ratio6.4Bxwvsug2.18.5-10.1 mg/dLBilirubin Total0.30.2-1.0 mg/dL Aspartate Amino Ohgxyveccue1492-14 U/LAlanine Euflgosugxjuixqy7653-15 U/L Alkaline Eqtrveuozdt8160-597 U/LTotal Protein6.36.4-8.2 g/dLAlbumin Level3.33.4- 5.0 g/dLGlobulin3.0Albumin Globulin Ratio1.1Performing Lab:see note - [facility] LBPTT Reviewed date:10/30/2024 02:53:54 PM Interpretation: Performing Lab: Notes/Report: [facility] ,Partial Thromboplastin Time28.622.3-36.2 secPerforming Lab:see noteML - [facility] LBProthrombin Time INR Reviewed date:10/30/2024 02:53:54 PM Interpretation: Performing Lab: Notes/Report: [facility] ,Prothrombin Time11.49.0-11.6 secINR1.08 DESIRED INR: 2.0-3.0 CONDITIONS NOT LISTED BELOW 2.5-3.5 FOR PROSTHETIC HEART VALVE REPLACEMENT 2.5-3.5 RECURRENT THROMBOSIS Performing Lab:see note - [facility] LBTroponin I High Sensitivity Reviewed date:10/30/2024 01:16:30 PM Interpretation: Performing Lab: Notes/Report: [facility] ,Troponin I High Edkdhpwikll24.84.0-51.3 pg/mL CUT-OFF POINTS HAVE BEEN ESTABLISHED BASED ON THE FOURTH UNIVERSAL DEFINITION OF MYOCARDIAL INFARCTION. THE UPPER REFERENCE LIMIT (URL) OF TROPONIN, DEFINED THE 99TH PERCENTILE OF cTnI DISTRIBUTION IN A REFERENCE POPULATION, HAS BEEN CONFIRMED THE DECISION THRESHOLD FOR ND DIAGNOSIS. 99TH PERCENTILE = 51.4 PG/ML NOTE: HIGH-SENSITIVITY TROPONIN ASSAY IS NOT INTENDED TO BE USED IN ISOLATION BUT SHOULD BE INTERPRETED IN CONJUNCTION WITH OTHER DIAGNOSTIC AND CLINICAL INFORMATION. Performing Lab:see noteML - [facility] LBHCG Qualitative* Reviewed date:10/30/2024 01:16:30 PM Interpretation: Performing Lab: Notes/Report: [facility] ,HCG QualitativeNEGATIVENEGATIVEPerforming Lab:see note - [facility] LBECG 12 lead Reviewed date:10/30/2024 05:59:55 PM Interpretation: Performing Lab: Notes/Report: Source Facility: [facility]-[address] [place] [address] [place] [address] Electrocardiograph Report Signed Patient: JUAN GARCIA MR#: [id number] : 1990 Acct:[id number] Age/Sex: 34 / F ADM Date: 10/30/24 Loc: ER Attending Dr: Ordering Physician: Barbara Willoughby Date of Service: 10/30/24 Procedure(s): ECG 12 lead Accession Number(s): [id number] cc: [facility] Test Date: 2024-10-30 Pat Name: JUAN GACRIA Department: Room: - 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1990 Requested By: [id number] Order Number: [id number] Reading MD: KATIE ALTAMIRANO Measurements Intervals Alpha Rate: 99 P: 67 HI: 136 QRS: [...] Signed By: 10/30/24 1654 DD/ 1015 TD/TT: Tree Doctor:ARABELLA chest 1V Reviewed date:10/30/2024 01:16:30 PM Interpretation: Performing Lab: Notes/Report: Source Facility: [place] [address] [place] [address] XRay Report Signed Patient: JUAN GARCIA MR#: [id number] : 1990 Acct:[id number] Age/Sex: 34 / F ADM Date: Loc: ER Attending Dr: Ordering Physician: Barbara Willoughby Date of Service: 10/30/24 Procedure(s): XR chest 1V Accession Number(s): [id number] cc: Britt Alas M.D.; Barbara Willoughby [place] [id number] Patient Name: JUAN GARCIA MRN: [facility]:[id number] date: 1990 Sex: F Assigned Patient Location: ED.MAIN Current Patient Location: ED.MAIN Accession/Order Number: [id number] Exam Date: 10/30/2024 10:20 Report Date: 10/30/2024 [...] Hutchinson M.D. 10/30/2024 10:45 AM Dictation Location[facility] Electronically authenticated by: [id number] Y Date: 10/30/2024 10:45 Dictated By: Maricruz Hutchinson M.D. Signed By: 10/30/24 1048 DD/ 1045 TD/TT: Tree Doctor:Troponin I High Sensitivity Reviewed date:10/30/2024 01:16:30 PM Interpretation: Performing Lab: Notes/Report: [facility] ,Troponin I High Scaswrmvpjt865.64.0-51.3 pg/mL RESULTS CALLED TO HENNY SHAH at 1252 CUT-OFF POINTS HAVE BEEN ESTABLISHED BASED ON THE FOURTH UNIVERSAL DEFINITION OF MYOCARDIAL INFARCTION. THE UPPER REFERENCE LIMIT (URL) OF TROPONIN, DEFINED THE 99TH PERCENTILE OF cTnI DISTRIBUTION IN A REFERENCE POPULATION, HAS BEEN CONFIRMED THE DECISION THRESHOLD FOR ND DIAGNOSIS. 99TH PERCENTILE = 51.4 PG/ML NOTE: HIGH-SENSITIVITY TROPONIN ASSAY IS NOT INTENDED TO BE USED IN ISOLATION BUT SHOULD BE INTERPRETED IN CONJUNCTION WITH OTHER DIAGNOSTIC AND CLINICAL INFORMATION. Performing Lab:see noteML - [facility] LBECG 12 lead Reviewed date:10/30/2024 05:59:55 PM Interpretation: Performing Lab: Notes/Report: Source Facility: [facility]-[address] [place] [address] [address] Electrocardiograph Report Signed Patient: JUAN GARCIA MR#: [id number] : 1990 Acct:[id number] Age/Sex: 34 / F ADM Date: 10/30/24 Loc: ER Attending Dr: Ordering Physician: Barbara Willoughby Date of Service: 10/30/24 Procedure(s): ECG 12 lead Accession Number(s): [id number] cc: [facility] Test Date: 2024-10-30 Pat Name: JUAN GARCIA Department: Room: - 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 Signed By: 10/30/24 1658 DD/ 1256 TD/TT: Tree Doctor:Troponin I High Sensitivity Reviewed date:10/30/2024 04:08:35 PM Interpretation: Performing Lab: Notes/Report: [facility] ,Troponin I High Otqltkczwcv770.34.0-51.3 pg/mL PERCENTILE OF cTnI DISTRIBUTION IN A REFERENCE POPULATION, HAS BEEN CONFIRMED THE DECISION THRESHOLD FOR ND DIAGNOSIS. 99TH PERCENTILE = 51.4 PG/ML NOTE: [...] THE 99TH Performing Lab:see noteML - [facility] LBECG 12 lead Reviewed date:10/30/2024 05:59:55 PM Interpretation: Performing Lab: Notes/Report: Source Facility: [place] [address] [place] [address] Electrocardiograph Report Signed Patient: JUAN GARCIA MR#: [id number] : 1990 Acct:[id number] Age/Sex: 34 / F ADM Date: 10/30/24 Loc: ER Attending Dr: Ordering Physician: Barbara Willoughby Date of Service: 10/30/24 Procedure(s): ECG 12 lead Accession Number(s): [id number] cc: [facility] Test Date: 2024-10-30 Pat Name: JUAN GARCIA Department: Room: - 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 Signed By: 10/30/24 1701 DD/ 1531 TD/TT: Tree Doctor:CBC AUTO DIFF Reviewed date:11/14/2024 04:56:23 PM Interpretation: Performing Lab: Notes/Report: [facility] ,White Blood Count3.64.0-11.0 10 3/uLRed Blood Count3.044.20-5.40 10 6/uL Hemoglobin9.212.0-16.0 g/yWWtpuezhjai91.836.0-48.0 %Mean Corpuscular Atzsju13.4 81.0-99.0 fLMean Corpuscular Cvsoskgtyc63.326.7-34.0 pgMean Corpuscular HGB Conc 33.129.9-35.2 g/dLRed Cell Distribution Width14.611.0-15.0 %Platelet Hrwrg472 150-450 10 3/uLMean Platelet Fzaxqg18.69.5-13.5 fLNeutrophils Percent Auto36.0 43.0-75.0 %Lymphocytes Percent Auto47.420.5-60.0 %Monocytes Percent Auto10.01.7- 12.0 %Eosinophils Percent Auto5.80.9-7.0 %Basophils Percent Auto0.80.2-2.0 % Immature Granulocytes Pct Auto0.00.0-0.5 %Neutrophils Absolute Auto1.31.4-6.5 10 3/uLLymphocytes Absolute Auto1.71.2-3.8 10 3/uLMonocytes Absolute Auto0.40.3-0.8 10 3/uLEosinophils Absolute Auto0.20.0-0.7 10 3/uLBasophils Absolute Auto0.00.0- 0.1 10 3/uLImmature Granulocytes Abs Auto0.000.00-0.03 10 3/uLPerforming Lab:see noteML - [facility] LBLIVER PROFILE Reviewed date:11/15/2024 01:03:51 PM Interpretation: Performing Lab: Notes/Report: [facility] ,Bilirubin Total0.40.2-1.0 mg/dLBilirubin Direct0.10.0-0.2 mg/dLAspartate Amino Jgmcfhpylkh3341-82 U/LAlanine Qkkfphzwsenixjzc8464-61 U/LAlkaline Zwopkituimw52 46-116 U/LTotal Protein6.26.4-8.2 g/dLAlbumin Level2.93.4-5.0 g/dLGlobulin3.3 Albumin Globulin Ratio0.9Performing Lab:see noteML - [facility] PROF CHEM 8 (BAS METB) Reviewed date:11/14/2024 04:56:23 PM Interpretation: Performing Lab: Notes/Report: [facility] ,Gttfzz599618-091 mmol/LPotassium3.83.5-5.1 mmol/WQewrybfe44816-405 mmol/LCarbon Dnkxbas81.321.0-32.0 mmol/LAnion Gap14.9Ezjvzwo6723-245 mg/dLBlood Urea Nitrogen 12.07.0-18.0 mg/dLCreatinine0.730.55-1.02 mg/dLEstimated GFR ( Shelby>60 >=60 mL/min/1.73m 2Estimated GFR (Non- Caroline>60>=60 mL/min/1.73m 2BUN Creatinine Ratio16.4Feiprnu9.98.5-10.1 mg/dLPerforming Lab:see note - [facility] LBTroponin I High Sensitivity Reviewed date:11/14/2024 04:56:23 PM Interpretation: Performing Lab: Notes/Report: [facility] ,Troponin I High Sensitivity5.64.0-51.3 pg/mL CUT-OFF POINTS HAVE BEEN ESTABLISHED BASED ON THE FOURTH UNIVERSAL DEFINITION OF MYOCARDIAL INFARCTION. THE UPPER REFERENCE LIMIT (URL) OF TROPONIN, DEFINED THE 99TH PERCENTILE OF cTnI DISTRIBUTION IN A REFERENCE POPULATION, HAS BEEN CONFIRMED THE DECISION THRESHOLD FOR ND DIAGNOSIS. 99TH PERCENTILE = 51.4 PG/ML NOTE: HIGH-SENSITIVITY TROPONIN ASSAY IS NOT INTENDED TO BE USED IN ISOLATION BUT SHOULD BE INTERPRETED IN CONJUNCTION WITH OTHER DIAGNOSTIC AND CLINICAL INFORMATION. Performing Lab:see note - [facility] LBECG 12 lead Reviewed date:11/15/2024 01:03:51 PM Interpretation: Performing Lab: Notes/Report: Source Facility: [facility]-[address] [place] [address] Electrocardiograph Report Signed Patient: JUAN GARCIA MR#: [id number] : 1990 Acct:[id number] Age/Sex: 34 / F ADM Date: 11/14/24 Loc: ER Attending Dr: Ordering Physician: Otilio Klein Date of Service: 11/14/24 Procedure(s): ECG 12 lead Accession Number(s): [id number] cc: [facility] Test Date: 2024-11-14 Pat Name: JUAN GARCIA Department: Room: - 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1990 Requested By: [id number] Order Number: [id number] Reading MD: JAMES HODGES M.D. Measurements Intervals Alpha Rate: 69 P: 76 HI: 154 QRS: 80 QRSD: 90 T: 84 QT: 402 QTc: 420 Interpretive Statements 1100 Sinus rhythm 9110 normal ECG Compared to ECG 10/30/2024 15:31:37 No significant changes Electronically Signed On 11-14-2024 20:01:07 EDT by JAMES HODGES M.D. Dictated By: JAMES HODGES Signed By: 11/14/24200011/14/242000 DD/ 1723 TD/TT: Tree Doctor:XR chest 2V Reviewed date:11/15/2024 01:03:51 PM Interpretation: Performing Lab: Notes/Report: Source Facility: [place] [address] XRay Report Signed Patient: JUAN GARCIA MR#: [id number] : 1990 Acct:[id number] Age/Sex: 34 / F ADM Date: 11/14/24 Loc: ER Attending Dr: Ordering Physician: Otilio Klein Date of Service: 11/14/24 Procedure(s): XR chest 2V Accession Number(s): [id number] cc: Britt Alas M.D.; Otilio Klein [place] [address] Patient Name: JUAN GARCIA MRN: [id number]:[id number] date: 1990 Sex: F Assigned Patient Location: ED.MAIN Current Patient Location: ED.MAIN Accession/Order Number: [id number] Exam Date: 11/14/2024 16:48 Report Date: 11/14/2024 [...] Davis M.D. 11/14/2024 5:27 PM Dictation Location: [place] [address] Electronically authenticated by: [id number] Y Date: 11/14/2024 17:27 Dictated By: Massimo Davis D.O. Signed By: 11/14/24 1730 DD/ 1727 TD/TT: Tree Doctor:Troponin I High Sensitivity Reviewed date:11/15/2024 01:03:51 PM Interpretation: Performing Lab: Notes/Report: [facility] ,Troponin I High Sensitivity5.74.0-51.3 pg/mL CUT-OFF POINTS HAVE BEEN ESTABLISHED BASED ON THE FOURTH UNIVERSAL DEFINITION OF MYOCARDIAL INFARCTION. THE UPPER REFERENCE LIMIT (URL) OF TROPONIN, DEFINED THE 99TH PERCENTILE OF cTnI DISTRIBUTION IN A REFERENCE POPULATION, HAS BEEN CONFIRMED THE DECISION THRESHOLD FOR ND DIAGNOSIS. 99TH PERCENTILE = 51.4 PG/ML NOTE: HIGH-SENSITIVITY TROPONIN ASSAY IS NOT INTENDED TO BE USED IN ISOLATION BUT SHOULD BE INTERPRETED IN CONJUNCTION WITH OTHER DIAGNOSTIC AND CLINICAL INFORMATION. Performing Lab:see noteML - [facility] LBCBC AUTO DIFF Reviewed date:11/19/2024 02:14:57 PM Interpretation: Performing Lab: Notes/Report: [facility] ,White Blood Count3.44.0-11.0 10 3/uLRed Blood Count3.334.20-5.40 10 6/uL Hemoglobin9.812.0-16.0 g/aXGfbqhrhmwy57.636.0-48.0 %Mean Corpuscular Caxuvq38.9 81.0-99.0 fLMean Corpuscular Qojkasctys86.426.7-34.0 pgMean Corpuscular HGB Conc 33.129.9-35.2 g/dLRed Cell Distribution Width14.011.0-15.0 %Platelet Satrt484 150-450 10 3/uLMean Platelet Lwvuzl67.29.5-13.5 fLNeutrophils Percent Auto43.8 43.0-75.0 %Lymphocytes Percent Auto42.120.5-60.0 %Monocytes Percent Auto8.81.7- 12.0 %Eosinophils Percent Auto3.80.9-7.0 %Basophils Percent Auto1.20.2-2.0 % Immature Granulocytes Pct Auto0.30.0-0.5 %Neutrophils Absolute Auto1.51.4-6.5 10 3/uLLymphocytes Absolute Auto1.41.2-3.8 10 3/uLMonocytes Absolute Auto0.30.3-0.8 10 3/uLEosinophils Absolute Auto0.10.0-0.7 10 3/uLBasophils Absolute Auto0.00.0- 0.1 10 3/uLImmature Granulocytes Abs Auto0.010.00-0.03 10 3/uLPerforming Lab:see noteML - [facility] LBPROF 14(COMP METB) Reviewed date:11/19/2024 02:14:57 PM Interpretation: Performing Lab: Notes/Report: [facility] ,Uvsffz966033-303 mmol/LPotassium3.73.5-5.1 mmol/JErrgzynr42646-302 mmol/LCarbon Eeglzzu01.021.0-32.0 mmol/LAnion Gap12.1Itnsvsf3623-038 mg/dLBlood Urea Nitrogen 11.07.0-18.0 mg/dLCreatinine0.700.55-1.02 mg/dLEstimated GFR ( Shelby>60 >=60 mL/min/1.73m 2Estimated GFR (Non- Caroline>60>=60 mL/min/1.73m 2BUN Creatinine Ratio15.5Bfiytcd4.18.5-10.1 mg/dLBilirubin Total0.40.2-1.0 mg/dL Aspartate Amino Zzmbpbcrrlb8076-83 U/LAlanine Oyphrbdtydkdrxpu0991-27 U/L Alkaline Ugpwxrrmcwp3726-037 U/LTotal Protein6.46.4-8.2 g/dLAlbumin Level3.23.4- 5.0 g/dLGlobulin3.2Albumin Globulin Ratio1.0Performing Lab:see noteML - [facility] LBTroponin I High Sensitivity Reviewed date:11/19/2024 02:14:57 PM Interpretation: Performing Lab: Notes/Report: [facility] ,Troponin I High Sensitivity4.44.0-51.3 pg/mL CUT-OFF POINTS HAVE BEEN ESTABLISHED BASED ON THE FOURTH UNIVERSAL DEFINITION OF MYOCARDIAL INFARCTION. THE UPPER REFERENCE LIMIT (URL) OF TROPONIN, DEFINED THE 99TH PERCENTILE OF cTnI DISTRIBUTION IN A REFERENCE POPULATION, HAS BEEN CONFIRMED THE DECISION THRESHOLD FOR ND DIAGNOSIS. 99TH PERCENTILE = 51.4 PG/ML NOTE: HIGH-SENSITIVITY TROPONIN ASSAY IS NOT INTENDED TO BE USED IN ISOLATION BUT SHOULD BE INTERPRETED IN CONJUNCTION WITH OTHER DIAGNOSTIC AND CLINICAL INFORMATION. Performing Lab:see note - [facility] LBHCG Qualitative* Reviewed date:11/19/2024 02:14:57 PM Interpretation: Performing Lab: Notes/Report: [facility] ,HCG QualitativeNEGATIVENEGATIVEPerforming Lab:see note - [facility] LBECG 12 lead Reviewed date:11/20/2024 12:44:41 PM Interpretation: Performing Lab: Notes/Report: Source Facility: [place] [address] Electrocardiograph Report Signed Patient: JUAN GARCIA MR#: [id number] : 1990 Acct:[id number] Age/Sex: 34 / F ADM Date: 11/19/24 Loc: [place] 214- Attending Dr: TRACIE ZIMMER Ordering Physician: TRACIE ZIMMER Date of Service: 11/19/24 Procedure(s): ECG 12 lead Accession Number(s): [id number] cc: [facility] Test Date: 2024-11-19 Pat Name: JUAN GARCIA Department: Room: [facility] 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 Measurements Intervals Alpha Rate: 60 P: 50 HI: 153 QRS: 41 QRSD: 89 T: 51 QT: 427 QTc: 428 Interpretive Statements SINUS RHYTHM Normal ECG Compared to ECG 11/14/2024 17:23:57 No significant changes Electronically Signed On 11-19-2024 19:26:01 EDT by JAMES HODGES M.D. Dictated By: JAMES HODGES Signed By: 11/19/24192511/19/241925 DD/ 155 TD/TT: Tree Doctor:XR chest 1V Reviewed date:11/19/2024 02:14:57 PM Interpretation: Performing Lab: Notes/Report: Source Facility: [place] [address] [address] [address] XRay Report Signed Patient: JUAN GARCIA MR#: [id number] : 1990 Acct:[id number] Age/Sex: 34 / F ADM Date: 11/19/24 Loc: ER Attending Dr: Ordering Physician: Barbara Willoughby Date of Service: 11/19/24 Procedure(s): XR chest 1V Accession Number(s): [id number] cc: Britt Alas M.D.; Barbara Willoughby [place] [address] Patient Name: JUAN GARCIA MRN: [id number] date: 1990 Sex: F Assigned Patient Location: ED.MAIN Current Patient Location: ED.MAIN Accession/Order Number: [id number] Exam Date: 11/19/2024 09:40 Report Date: 11/19/2024 [...] Jr., D.O. 11/19/2024 9:54 AM Dictation Location: [place] [address] Electronically authenticated by: [id number] Y Date: 11/19/2024 09:54 Dictated By: Cornel Medel M.D. Signed By: 11/19/24 0957 DD/ 3 TD/TT: Tree Doctor:Troponin I High Sensitivity Reviewed date:11/19/2024 02:14:57 PM Interpretation: Performing Lab: Notes/Report: [facility] ,Troponin I High Sensitivity4.84.0-51.3 pg/mL CUT-OFF POINTS HAVE BEEN ESTABLISHED BASED ON THE FOURTH UNIVERSAL DEFINITION OF MYOCARDIAL INFARCTION. THE UPPER REFERENCE LIMIT (URL) OF TROPONIN, DEFINED THE 99TH PERCENTILE OF cTnI DISTRIBUTION IN A REFERENCE POPULATION, HAS BEEN CONFIRMED THE DECISION THRESHOLD FOR ND DIAGNOSIS. 99TH PERCENTILE = 51.4 PG/ML NOTE: HIGH-SENSITIVITY TROPONIN ASSAY IS NOT INTENDED TO BE USED IN ISOLATION BUT SHOULD BE INTERPRETED IN CONJUNCTION WITH OTHER DIAGNOSTIC AND CLINICAL INFORMATION. Performing Lab:see noteML - [facility] LBTroponin I High Sensitivity Reviewed date:11/19/2024 05:07:43 PM Interpretation: Performing Lab: Notes/Report: [facility] ,Troponin I High Sensitivity<4.04.0-51.3 pg/mL CUT-OFF POINTS HAVE BEEN ESTABLISHED BASED ON THE FOURTH UNIVERSAL DEFINITION OF MYOCARDIAL INFARCTION. THE UPPER REFERENCE LIMIT (URL) OF TROPONIN, DEFINED THE 99TH PERCENTILE OF cTnI DISTRIBUTION IN A REFERENCE POPULATION, HAS BEEN CONFIRMED THE DECISION THRESHOLD FOR ND DIAGNOSIS. 99TH PERCENTILE = 51.4 PG/ML NOTE: HIGH-SENSITIVITY TROPONIN ASSAY IS NOT INTENDED TO BE USED IN ISOLATION BUT SHOULD BE INTERPRETED IN CONJUNCTION WITH OTHER DIAGNOSTIC AND CLINICAL INFORMATION. Performing Lab:see noteML - [facility] LBCBC AUTO DIFF Reviewed date:11/20/2024 12:44:41 PM Interpretation: Performing Lab: Notes/Report: [facility] ,White Blood Count2.94.0-11.0 10 3/uLRed Blood Count3.174.20-5.40 10 6/uL Hemoglobin9.312.0-16.0 g/wVFmqueailnt74.436.0-48.0 %Mean Corpuscular Xmstln03.6 81.0-99.0 fLMean Corpuscular Rtkvdtxvxy35.326.7-34.0 pgMean Corpuscular HGB Conc 32.729.9-35.2 g/dLRed Cell Distribution Width14.111.0-15.0 %Platelet Vxitx253 150-450 10 3/uLMean Platelet Qgmebn70.39.5-13.5 fLPerforming Lab:see noteML - [facility] LBPROF CHEM 8 (BAS METB) Reviewed date:11/20/2024 12:44:41 PM Interpretation: Performing Lab: Notes/Report: [facility] ,Iraadq769144-166 mmol/LPotassium4.13.5-5.1 mmol/DMmkjimwf03794-397 mmol/LCarbon Zfuxnzn68.821.0-32.0 mmol/LAnion Gap12.7Mphzqfq0285-255 mg/dLBlood Urea Nitrogen 10.07.0-18.0 mg/dLCreatinine0.750.55-1.02 mg/dLEstimated GFR ( Shelby>60 >=60 mL/min/1.73m 2Estimated GFR (Non- Caroline>60>=60 mL/min/1.73m 2BUN Creatinine Ratio13.2Kputfjt3.38.5-10.1 mg/dLPerforming Lab:see noteML - [facility] LBManual Differential Reviewed date:11/20/2024 12:44:41 PM Interpretation: Performing Lab: Notes/Report: [facility] ,Segmented Neutrophils % Tauyld24.043.0-75.0Lymphocytes Percent Mkarrz28.020.5- 60.0 %Monocytes Percent Mbazwf10.01.7-12.0 %Eosinophils Percent Wqwlmh20.00.9- 7.0 %Basophils Percent Manual2.00.2-2.0 %Atypical Lymphocytes % Manual3.0 Segmented Neut Absolute Manual0.951.4-6.5 10 3/uLLymphocytes Absolute Manual1.16 1.20-3.80 10 3/uLMonocytes Absolute Manual0.310.30-0.80 10 3/uLEosinophils Absolute Manual0.340.00-0.70 10 3/uLBasophils Abs Manual0.050.00-0.10 10 3/uL Atypical Lymphocytes Abs Man0.78Onsiguiheeilf6+Poikilocytosis1+Anisocytosis2+ Performing Lab:see noteML - [facility] LBTroponin I High Sensitivity Reviewed date:11/20/2024 12:44:41 PM Interpretation: Performing Lab: Notes/Report: [facility] ,Troponin I High Sensitivity5.24.0-51.3 pg/mL CUT-OFF POINTS HAVE BEEN ESTABLISHED BASED ON THE FOURTH UNIVERSAL DEFINITION OF MYOCARDIAL INFARCTION. THE UPPER REFERENCE LIMIT (URL) OF TROPONIN, DEFINED THE 99TH PERCENTILE OF cTnI DISTRIBUTION IN A REFERENCE POPULATION, HAS BEEN CONFIRMED THE DECISION THRESHOLD FOR ND DIAGNOSIS. 99TH PERCENTILE = 51.4 PG/ML NOTE: HIGH-SENSITIVITY TROPONIN ASSAY IS NOT INTENDED TO BE USED IN ISOLATION BUT SHOULD BE INTERPRETED IN CONJUNCTION WITH OTHER DIAGNOSTIC AND CLINICAL INFORMATION. Performing Lab:see noteML - [facility] LBECG 12 lead Reviewed date:11/20/2024 06:47:06 PM Interpretation: Performing Lab: Notes/Report: Source Facility: [place] [address] Electrocardiograph Report Signed Patient: JUAN GARCIA MR#: [id number] : 1990 Acct:[id number] Age/Sex: 34 / F ADM Date: 11/19/24 Loc: [place] 214- Attending Dr: TRACIE ZIMMER Ordering Physician: TRACIE ZIMMER Date of Service: 11/20/24 Procedure(s): ECG 12 lead Accession Number(s): [id number] cc: [facility] Test Date: 2024-11-20 Pat Name: JUAN GARCIA Department: Room: [facility] 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 Measurements Intervals Alpha Rate: 66 P: 51 HI: 157 QRS: 46 QRSD: 89 T: 55 QT: 434 QTc: 457 Interpretive Statements SINUS RHYTHM WITH OCCASIONAL VENTRICULAR PREMATURE COMPLEXES Otherwise normal ECG Compared to ECG 11/19/2024 15:53:20 Ventricular premature complex(es) now present Electronically Signed On 11-20-2024 18:25:25 EDT by JAMES HODGES M.D. Dictated By: JAMES HODGES Signed By: 11/20/24 1825 DD/ 0526 TD/TT: Tree Doctor:ECG 12 lead Reviewed date:11/21/2024 04:20:51 PM Interpretation: Performing Lab: Notes/Report: Source Facility: [facility]-[address] [place] [address] [place] [address] Electrocardiograph Report Signed Patient: JUAN GARCIA MR#: [id number] : 1990 Acct:[id number] Age/Sex: 34 / F ADM Date: 11/19/24 Loc: [place] 214-[address]: TRACIE ZIMMER Ordering Physician: Kal Wilson M.D. 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 Signed By: 11/21/24 1257 DD/ 1100 TD/TT: Tree Doctor:CBC AUTO DIFF Reviewed date:11/30/2024 07:01:13 PM Interpretation: Performing Lab: Notes/Report: [facility] ,White Blood Count3.84.0-11.0 10 3/uLRed Blood Count3.514.20-5.40 10 6/uL Majnnfkfnl33.312.0-16.0 g/fKTrnfapgbsl20.336.0-48.0 %Mean Corpuscular Kwhwrh23.2 81.0-99.0 fLMean Corpuscular Obeoyfnsja55.326.7-34.0 pgMean Corpuscular HGB Conc 32.929.9-35.2 g/dLRed Cell Distribution Width13.811.0-15.0 %Platelet Etabc942 150-450 10 3/uLMean Platelet Gxgflw86.89.5-13.5 fLNeutrophils Percent Auto53.1 43.0-75.0 %Lymphocytes Percent Auto34.220.5-60.0 %Monocytes Percent Auto7.41.7- 12.0 %Eosinophils Percent Auto4.20.9-7.0 %Basophils Percent Auto1.10.2-2.0 % Immature Granulocytes Pct Auto0.00.0-0.5 %Neutrophils Absolute Auto2.01.4-6.5 10 3/uLLymphocytes Absolute Auto1.31.2-3.8 10 3/uLMonocytes Absolute Auto0.30.3-0.8 10 3/uLEosinophils Absolute Auto0.20.0-0.7 10 3/uLBasophils Absolute Auto0.00.0- 0.1 10 3/uLImmature Granulocytes Abs Auto0.000.00-0.03 10 3/uLPerforming Lab:see noteML - [facility] LBUA (CLEAN or CATCH) METAL TEMPLATE MAKER or MICRO IF IND. Reviewed date:11/30/2024 07:01:13 PM Interpretation: Performing Lab: Notes/Report: CATH SPECIMEN [facility] ,Color UrineYELLOWYELLOWClarity UrineCLEARCLEARSpecific [place] Urine>=1.030 1.005-1.025pH Urine5.55.0-9.0Protein UrineNEGATIVENEG/TRACE mg/dLGlucose Urine UANEGATIVENEGATIVE mg/dLBilirubin UrineNEGATIVENEGATIVEKetones UrineNEGATIVE NEGATIVE mg/dLBlood UrineMODERATENEGATIVENitrite UrineNEGATIVENEGATIVE Urobilinogen Urine0.20.2-1.0 EU/dLLeukocyte Esterase UrineNEGATIVENEGATIVEUrine Microscopic IndicatedYESPerforming Lab:see noteML - [facility] LB URINE MICROSCOPIC ONLY Reviewed date:11/30/2024 07:01:13 PM Interpretation: Performing Lab: Notes/Report: CATH SPECIMEN [facility] ,WBC Urine0-2NONE SEEN #/HPFRBC Flfik24-535-4 #/HPFBacteria UrineNONE SEENNONE SEEN #/HPFMucus UrineTRACENONE SEENSquamous Epithelial Cell UrineFEWNONE/RARE #/LPFCrystals Seen?SeenNone Seen #/HPFCalcium Oxalate Crystals UrineFEWCast Seen?NONE SEENNONE SEEN #/LPFUrine Culture IndicatedNOPerforming Lab:see note - [facility] LBHCG Qualitative* Reviewed date:11/30/2024 07:01:13 PM Interpretation: Performing Lab: Notes/Report: [facility] ,HCG QualitativeNEGATIVENEGATIVEPerforming Lab:see noteML - [facility] LBCT abdomen pelvis wo con Reviewed date:11/30/2024 07:01:13 PM Interpretation: Performing Lab: Notes/Report: Source Facility: [place] [address] CT Scan Report Signed Patient: JUAN GARCIA MR#: [id number] : 1990 Acct:[id number] Age/Sex: 34 / F ADM Date: 11/30/24 Loc: ER Attending Dr: Ordering Physician: Barbara Willoughby Date of Service: 11/30/24 Procedure(s): CT abdomen pelvis wo con Accession Number(s): [id number] cc: Britt Alas M.D. [place] [id number] Patient Name: JUAN GARCIA MRN: [id number]:[id number] date: 1990 Sex: F Assigned Patient Location: ER Current Patient Location: ER Accession/Order Number: [id number] Exam Date: 11/30/2024 11:00 Report Date: 11/30/2024 [...] No pericecal moderate changes. No bowel obstruction. Zrfo-oe-nzjoxwhl retained stool. Pelvis:[Bladder collapsed with Costello catheter [...] Lundberg M.D. 11/30/2024 11:55 AM Dictation Location: [place] [address] Electronically authenticated by: [id number] Y Date: 11/30/2024 11:55 Dictated By: Tio Lundberg M.D. Signed By: 11/30/24 1158 DD/ 1155 TD/TT: Tree Doctor:IRON AND TIBC Reviewed date:12/06/2024 05:46:04 PM Interpretation: Performing Lab: Notes/Report: [facility] ,Iron36.050.0-170.0 ug/dLTotal Iron Binding Lnywmbxy273.0250.0-450.0 ug/dL Percent Iron Vjarcmhtod89.9Performing Lab:see noteML - [facility] LB CBC AUTO DIFF Reviewed date:12/07/2024 02:52:45 PM Interpretation: Performing Lab: Notes/Report: [facility] ,White Blood Count4.54.0-11.0 10 3/uLRed Blood Count3.594.20-5.40 10 6/uL Kkdjglzpon92.412.0-16.0 g/fFQlzswpjnhx15.936.0-48.0 %Mean Corpuscular Iwtlqu06.9 81.0-99.0 fLMean Corpuscular Iweoxlxwzj12.026.7-34.0 pgMean Corpuscular HGB Conc 32.629.9-35.2 g/dLRed Cell Distribution Width14.011.0-15.0 %Platelet Wisva652 150-450 10 3/uLMean Platelet Zbkcfa38.59.5-13.5 fLNeutrophils Percent Auto39.6 43.0-75.0 %Lymphocytes Percent Auto47.320.5-60.0 %Monocytes Percent Auto9.01.7- 12.0 %Eosinophils Percent Auto3.40.9-7.0 %Basophils Percent Auto0.70.2-2.0 % Immature Granulocytes Pct Auto0.00.0-0.5 %Neutrophils Absolute Auto1.81.4-6.5 10 3/uLLymphocytes Absolute Auto2.11.2-3.8 10 3/uLMonocytes Absolute Auto0.40.3- 0.8 10 3/uLEosinophils Absolute Auto0.20.0-0.7 10 3/uLBasophils Absolute Auto0.0 0.0-0.1 10 3/uLImmature Granulocytes Abs Auto0.000.00-0.03 10 3/uLPerforming Lab:see noteML - [facility] LBLIVER PROFILE Reviewed date:12/07/2024 04:07:08 PM Interpretation: Performing Lab: Notes/Report: [facility] ,Bilirubin Total0.30.2-1.0 mg/dLBilirubin Direct0.10.0-0.2 mg/dLAspartate Amino Yknzjcrqjei1165-65 U/LAlanine Augkjbovicggqnkx2083-53 U/LAlkaline Yyzqmgmxuui72 46-116 U/LTotal Protein6.76.4-8.2 g/dLAlbumin Level3.43.4-5.0 g/dLGlobulin3.3 Albumin Globulin Ratio1.0Performing Lab:see noteML - [facility] LB PROF CHEM 8 (BAS METB) Reviewed date:12/07/2024 04:07:08 PM Interpretation: Performing Lab: Notes/Report: [facility] ,Ybheqt021260-183 mmol/LPotassium4.03.5-5.1 mmol/GNbkvzzzn39524-484 mmol/LCarbon Zvdeoki79.621.0-32.0 mmol/LAnion Gap12.3Knlzomr5378-770 mg/dLBlood Urea Nitrogen7.07.0-18.0 mg/dLCreatinine0.860.55-1.02 mg/dLEstimated GFR ( Shelby>60>=60 mL/min/1.73m 2Estimated GFR (Non- Caroline>60>=60 mL/min/1.73m 2BUN Creatinine Ratio8.4Elmtmaf5.28.5-10.1 mg/dLPerforming Lab:see noteML - [facility] LBUA (CLEAN or CATCH) MICROSCOPIC IF INDICATE Reviewed date:12/07/2024 04:07:08 PM Interpretation: Performing Lab: Notes/Report: [facility] ,Color UrineDK ORANGEYELLOWClarity UrineCLEARCLEARSpecific [place] Urine1.025 1.005-1.025pH UrineCOLOR INTERFERENCE5.0-9.0Protein UrineCOLOR INTERFERENCE NEG/TRACE mg/dLGlucose Urine UACOLOR INTERFERENCENEGATIVE mg/dLBilirubin Urine COLOR INTERFERENCENEGATIVEKetones UrineCOLOR INTERFERENCENEGATIVE mg/dLBlood UrineCOLOR INTERFERENCENEGATIVENitrite UrineCOLOR INTERFERENCENEGATIVE Urobilinogen UrineCOLOR INTERFERENCE0.2-1.0 EU/dLLeukocyte Esterase UrineCOLOR INTERFERENCENEGATIVEUrine Microscopic IndicatedYESPerforming Lab:see noteML - [facility] LBURINE MICROSCOPIC ONLY Reviewed date:12/07/2024 04:07:08 PM Interpretation: Performing Lab: Notes/Report: [facility] ,WBC Urine5-10NONE SEEN #/HPFRBC Urine2-50-2 #/HPFBacteria UrineTRACENONE SEEN #/HPFMucus UrineNONE SEENNONE SEENSquamous Epithelial Cell UrineFEWNONE/RARE #/LPFCrystals Seen?None SeenNone Seen #/HPFCast Seen?NONE SEENNONE SEEN #/LPF Urine Culture IndicatedYES-FRMCPerforming Lab:see noteML - [facility] LBTroponin I High Sensitivity Reviewed date:12/07/2024 04:07:08 PM Interpretation: Performing Lab: Notes/Report: [facility] ,Troponin I High Sensitivity4.44.0-51.3 pg/mL CUT-OFF POINTS HAVE BEEN ESTABLISHED BASED ON THE FOURTH UNIVERSAL DEFINITION OF MYOCARDIAL INFARCTION. THE UPPER REFERENCE LIMIT (URL) OF TROPONIN, DEFINED THE 99TH PERCENTILE OF cTnI DISTRIBUTION IN A REFERENCE POPULATION, HAS BEEN CONFIRMED THE DECISION THRESHOLD FOR ND DIAGNOSIS. 99TH PERCENTILE = 51.4 PG/ML NOTE: HIGH-SENSITIVITY TROPONIN ASSAY IS NOT INTENDED TO BE USED IN ISOLATION BUT SHOULD BE INTERPRETED IN CONJUNCTION WITH OTHER DIAGNOSTIC AND CLINICAL INFORMATION. Performing Lab:see noteML - [facility] LBUrine Culture - [facility] Reviewed date:12/07/2024 04:07:08 PM Interpretation: Performing Lab: Notes/Report: [facility] ,[facility]rine [facility] For Report Urine Culture - [facility] [place] Pending - Specimen sent to [facility]^Pending - Specimen sent to [facility] Performing Lab:see noteML - [facility] LBECG 12 lead (Not yet reviewed by provider) Interpretation: Performing Lab: Notes/Report: Source Facility: [place] [address] [place] [address] Electrocardiograph Report Signed Patient: JUAN GARCIA MR#: [id number] : 1990 Acct:[id number] Age/Sex: 34 / F ADM Date: 12/07/24 Loc: ER Attending Dr: Ordering Physician: Ronda Fernandez Date of Service: 12/07/24 Procedure(s): ECG 12 lead Accession Number(s): [id number] cc: [facility] Test Date: 2024-12-07 Pat Name: JUAN GARCIA Department: Room: - 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 Measurements Intervals Alpha Rate: 64 P: 72 HI: 128 QRS: 84 QRSD: 84 T: 46 QT: 428 QTc: 438 Interpretive Statements 1100 Sinus rhythm 9110 normal ECG Compared to ECG 11/21/2024 11:00:20 No significant changes Electronically Signed On 12-07-2024 19:20:01 EDT by JAMES HODGES M.D. Dictated By: JAMES HODGES Signed By: 12/07/24 1920 DD/ 1418 TD/TT: Tree Doctor:XR chest 1V Reviewed date:12/07/2024 04:07:08 PM Interpretation: Performing Lab: Notes/Report: Source Facility: [place] [address] XRay Report Signed Patient: JUAN GARCIA MR#: [id number] : 1990 Acct:[id number] Age/Sex: 34 / F ADM Date: 12/07/24 Loc: ER Attending Dr: Ordering Physician: Ronda Fernandez Date of Service: 12/07/24 Procedure(s): XR chest 1V Accession Number(s): [id number] cc: Britt Alas M.D.; Ronda Fernandez [place] [address] Patient Name: JUAN GARCIA MRN: [id number]:[id number] date: 1990 Sex: F Assigned Patient Location: ER Current Patient Location: ER Accession/Order Number: [id number] Exam Date: 12/07/2024 15:15 Report Date: 12/07/2024 15:58 At the request of: RONDA FERNANDEZ Procedure: XR chest 1V XR chest 1V 12/07/2024 3:19 PM SIGNS AND SYMPTOMS: CP PROTOCOL: Frontal radiograph of the chest COMPARISON: 11/19/2024 FINDINGS: The trachea is midline. There is a catheter projecting over the right-sided mediastinum with tip in the expected location of the superior vena cava. The heart and mediastinal structures are within normal limits. The lung parenchyma is clear. The bony thorax is intact. XR/XR chest 1V IMPRESSION: No acute cardiopulmonary pathology. Impression dictated by: Roddy Hutchinson M.D. 12/07/2024 3:58 PM Dictation Location: [place] [address] Electronically authenticated by: [id number] Y Date: 12/07/2024 15:58 Dictated By: Roddy Hutchinson M.D. Signed By: 12/07/24 1601 DD/ 1558 TD/TT: Tree Doctor:CT angio chest Reviewed date:12/07/2024 04:58:20 PM Interpretation: Performing Lab: Notes/Report: Source Facility: [place] [address] [place] [address] CT Scan Report Signed Patient: JUAN GARCIA MR#: [id number] : 1990 Acct:[id number] Age/Sex: 34 / F ADM Date: 12/07/24 Loc: ER Attending Dr: Ordering Physician: Ronda Fernandez Date of Service: 12/07/24 Procedure(s): CT angio chest Accession Number(s): [id number] cc: Britt Alas M.D. [place] [address] Patient Name: JUAN GARCIA MRN: [id number] date: 1990 Sex: F Assigned Patient Location: ER Current Patient Location: ER Accession/Order Number: [id number] Exam Date: 12/07/2024 15:42 Report Date: 12/07/2024 16:38 At the request of: RONDA FERNANDEZ Procedure: CT angio chest CTA chest CLINICAL DATA: Chest pain radiating to the back/left shoulder. TECHNIQUE: Intravenous contrast-enhanced CT angiography of the chest was performed. Axial, sagittal, coronal, and 3D-dimensional reconstructions were created and reviewed. These CT exams were performed using one or more of the following dose reduction techniques: Automated exposure control, adjustment of the mA and/or kV according to patient size, or use of iterative reconstruction technique. COMPARISON: 11/14/2024. FINDINGS: Chest: Mediastinum:Less than optimal bolus evaluate for aortic dissection. No definite aortic dissection flap or aneurysmal dilatation of the aorta. No evidence of Central to segmental branch pulmonary emboli. No pericardial effusion. No bulky adenopathy. Lungs:Hypoventilatory changes no airspace opacity effusion or pneumothorax. Abd: Spleen is prominent. Multifocal cysts involving the liver. Spleen appears prominent. Gastric bypass partially visualized.[ Soft tissues/Bones: Minimal spurring involving the thoracic spine. CT/CT angio chest IMPRESSION: Negative for acute pleural-parenchymal disease. No definite aortic dissection or central pulmonary emboli. Impression dictated by: Tio Lundberg M.D. 12/07/2024 4:38 PM Dictation Location: [place] [address] Electronically authenticated by: [id number] Y Date: 12/07/2024 16:38 Dictated By: Tio Lundberg M.D. 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 Measurements Intervals Alpha Rate: 72 P: 69 HI: 124 QRS: 81 QRSD: 82 T: 37 QT: 412 QTc: 436 Interpretive Statements 1100 Sinus rhythm 9110 normal ECG Compared to ECG 12/07/2024 14:18:31 No significant changes Electronically Signed On 12-07-2024 19:20:04 EDT by JAMES HODGES M.D. Dictated By: JAMES HODGES Signed By: 12/07/241919 DD/ 1456 TD/TT: Tree Doctor:Troponin I High Sensitivity Reviewed date:12/07/2024 04:58:20 PM Interpretation: Performing Lab: Notes/Report: [facility] ,Troponin I High Sensitivity4.04.0-51.3 pg/mL CUT-OFF POINTS HAVE BEEN ESTABLISHED BASED ON THE FOURTH UNIVERSAL DEFINITION OF MYOCARDIAL INFARCTION. THE UPPER REFERENCE LIMIT (URL) OF TROPONIN, DEFINED THE 99TH PERCENTILE OF cTnI DISTRIBUTION IN A REFERENCE POPULATION, HAS BEEN CONFIRMED THE DECISION THRESHOLD FOR ND DIAGNOSIS. 99TH PERCENTILE = 51.4 PG/ML NOTE: HIGH-SENSITIVITY TROPONIN ASSAY IS NOT INTENDED TO BE USED IN ISOLATION BUT SHOULD BE INTERPRETED IN CONJUNCTION WITH OTHER DIAGNOSTIC AND CLINICAL INFORMATION. Performing Lab:see noteML - [facility] LBPROF 14(COMP METB) Reviewed date:08/02/2024 05:29:08 PM Interpretation: Performing Lab: Notes/Report: [facility] ,Iyooaf192111-912 mmol/LPotassium3.63.5-5.1 mmol/YJskqbxzp66897-683 mmol/LCarbon Kfzzvln51.321.0-32.0 mmol/LAnion Gap15.5Dnrjrwx6420-497 mg/dLBlood Urea Nxchkquw32.07.0-18.0 mg/dLCreatinine0.720.55-1.02 mg/dLEstimated GFR ( Shelby>60>=60 mL/min/1.73m 2Estimated GFR (Non- Caroline>60>=60 mL/min/1.73m 2BUN Creatinine Ratio15.3Yhpdmlz2.58.5-10.1 mg/dLBilirubin Total0.40.2-1.0 mg/dL Aspartate Amino Lhvwcdmyott8263-10 U/LAlanine Rfjdtghagakuxozm9699-97 U/L Alkaline Bcwhzaupmxe0133-243 U/LTotal Protein6.66.4-8.2 g/dLAlbumin Level3.63.4- 5.0 g/dLGlobulin3.0Albumin Globulin Ratio1.2Performing Lab:see noteML - [facility] LBLIPASE Reviewed date:08/02/2024 05:29:08 PM Interpretation: Performing Lab: Notes/Report: [facility] ,Gtqjsa07.016.0-77.0 U/LPerforming Lab:see noteML - [facility] LBPROF CHEM 8 (BAS METB) Reviewed date:07/22/2024 05:16:36 PM Interpretation: Performing Lab: Notes/Report: [facility] ,Ttwiio392033-032 mmol/LPotassium3.93.5-5.1 mmol/WSrafaonq36203-866 mmol/LCarbon Xoszlit42.121.0-32.0 mmol/LAnion Gap15.6Vbdljfx8393-387 mg/dLBlood Urea Nitrogen8.07.0-18.0 mg/dLCreatinine0.680.55-1.02 mg/dLEstimated GFR ( Shelby>60>=60 mL/min/1.73m 2Estimated GFR (Non- Caroline>60>=60 mL/min/1.73m 2BUN Creatinine Ratio11.9Uivdjuq4.78.5-10.1 mg/dLPerforming Lab:see noteML - [facility] LBCBC AUTO DIFF Reviewed date:07/22/2024 05:16:36 PM Interpretation: Performing Lab: Notes/Report: [facility] ,White Blood Count6.44.0-11.0 10 3/uLRed Blood Count3.634.20-5.40 10 6/uL Uaxvxdyqek70.812.0-16.0 g/vLSppadcvbvd58.336.0-48.0 %Mean Corpuscular Kyonja31.5 81.0-99.0 fLMean Corpuscular Lghfgintcv96.526.7-34.0 pgMean Corpuscular HGB Conc 34.429.9-35.2 g/dLRed Cell Distribution Width12.711.0-15.0 %Platelet Qqkyh804 150-450 10 3/uLMean Platelet Ainnnn88.59.5-13.5 fLNeutrophils Percent Auto72.6 43.0-75.0 %Lymphocytes Percent Auto21.720.5-60.0 %Monocytes Percent Auto5.01.7- 12.0 %Eosinophils Percent Auto0.20.9-7.0 %Basophils Percent Auto0.30.2-2.0 % Immature Granulocytes Pct Auto0.20.0-0.5 %Neutrophils Absolute Auto4.71.4-6.5 10 3/uLLymphocytes Absolute Auto1.41.2-3.8 10 3/uLMonocytes Absolute Auto0.30.3- 0.8 10 3/uLEosinophils Absolute Auto0.00.0-0.7 10 3/uLBasophils Absolute Auto0.0 0.0-0.1 10 3/uLImmature Granulocytes Abs Auto0.010.00-0.03 10 3/uLPerforming Lab:see noteML - [facility] LBTroponin I High Sensitivity Reviewed date:08/02/2024 05:29:08 PM Interpretation: Performing Lab: Notes/Report: [facility] ,Troponin I High Sensitivity<4.04.0-51.3 pg/mL HAS BEEN CONFIRMED THE DECISION THRESHOLD FOR ND DIAGNOSIS. 99TH PERCENTILE = 51.4 PG/ML NOTE: [...] DISTRIBUTION IN A REFERENCE POPULATION, Performing Lab:see note - [facility] LBHCG Qualitative Urine Reviewed date:08/02/2024 05:29:08 PM Interpretation: Performing Lab: Notes/Report: [facility] ,HCG Qualitative Urine*NEGATIVENEGATIVEPerforming Lab:see note - [facility] LBLIPASE Reviewed date:08/02/2024 05:29:08 PM Interpretation: Performing Lab: Notes/Report: [facility] ,Whcdny06.016.0-77.0 U/LPerforming Lab:see note - [facility] LB BLOOD CULTURE ID PANEL Reviewed date:08/16/2024 07:06:02 PM Interpretation: Performing Lab: Notes/Report: [facility] ,CTX-MNOT DETECTEDNOT DETECTEIMPNOT DETECTEDNOT DETECTEKPCNOT DETECTEDNOT DETECTEmcr-1NOT DETECTEDNOT DETECTEmecA/CNOT APPLICABLENOT DETECTEmecA/C and MREJ (MRSA)NOT APPLICABLENOT DETECTENDMNOT DETECTEDNOT VHESOTIALB-76-hrpzJWJ DETECTEDNOT DETECTEvanA/BNOT APPLICABLENOT DETECTEVIMNOT DETECTEDNOT DETECTE SourceBLDEnterococcus [...] DETECTEDNOT DETECTE Cryptococcus neoformans/gattiiNOT DETECTEDNOT DETECTEPerforming Lab:see note - [facility] LBLIPASE Reviewed date:08/15/2024 06:53:11 PM Interpretation: Performing Lab: Notes/Report: [facility] ,Eiinvm98.016.0-77.0 U/LPerforming Lab:see note - [facility] LB Aerobe ID + Suscept Reviewed date:08/21/2024 [...] Isolated O:KLEBPN Isolated Organism: 1.2 Antibiotic Interpretation SNADHYA Status Aerobe ID + SusceptOrganism: Gram negative [...] LC - [facility] LB SEE REPORT - Curing Finisher Id information not found for OBX-specific news producer legend Anaerobe Identification Only Reviewed date:08/21/2024 08:08:02 PM Interpretation: Performing Lab: Notes/Report: [facility] ,Anaerobe Identification OnlySee Below For Report Anaerobe Identification Only Anaerobe Identification OnlySpecimen has been received and testing has been initiated. Anaerobe Identification Only Anaerobe Identification Only Anaerobe Identification Only Anaerobe Identification OnlyNo anaerobes recovered. Anaerobe Identification Only Anaerobe Identification OnlyPerformed at: - [facility] [place] Anaerobe Identification Only Anaerobe Identification [id number] [place], [place] [id number] Anaerobe Identification Only Anaerobe Identification OnlyLab Director: Daron Almanza PhD, Phone: [phone] Anaerobe Identification Only Performing Lab:see note LC - [facility] LB SEE REPORT - Curing Finisher Id information not found for OBX-specific news producer legend ECG 12 lead Reviewed date:08/16/2024 07:06:02 PM Interpretation: Performing Lab: Notes/Report: Source Facility: [place] [address] [place] [address] Electrocardiograph Report Signed Patient: JUAN GARCIA MR#: [id number] : 1990 Acct:[id number] Age/Sex: 34 / F ADM Date: 08/15/24 Loc: ER Attending Dr: Ordering Physician: Domenica Romeo Date of Service: 08/15/24 Procedure(s): ECG 12 lead Accession Number(s): [id number] cc: [facility] Test Date: 2024-08-15 Pat Name: JUAN GARCIA Department: Room: - 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 Measurements Intervals Alpha Rate: 82 P: 45 HI: 142 QRS: 75 QRSD: 84 T: 44 QT: 402 QTc: 440 Interpretive Statements 1100 Sinus rhythm 9110 normal ECG Compared to ECG 06/21/2024 11:24:35 No significant changes Electronically Signed On 08-16-2024 6:37:55 EDT by JAMES HODGES M.D. Dictated By: JAMES HODGES Signed By: 08/16/24 0637 DD/ 1303 TD/TT: Tree Doctor:Aerobe ID + Suscept Reviewed date:09/02/2024 02:54:42 PM [...] SANDHYA Status Aerobe ID + SusceptPerformed at: [facility] Aerobe ID + Suscept Organism: Gram negative jeffery : O:GNR Isolated O:KLEBPN Isolated Organism: 1.2 Antibiotic Interpretation SANDHYA Status Aerobe ID + [id number] [place], [place] [id number] Aerobe ID + Suscept Organism: Gram negative jeffery : O:GNR Isolated O:KLEBPN Isolated Organism: 1.2 Antibiotic Interpretation SANDHYA Status Aerobe ID + SusceptLab Director: Daron Almanza PhD, Phone: [phone] Aerobe ID + Suscept Organism: Gram negative [...] Antibiotic Interpretation SANDHYA Status Performing Lab:see note - [facility] LB SEE REPORT - Curing Finisher Id information not found for OBX-specific news producer legend Anaerobe Identification Only Reviewed date:09/04/2024 [...] Only WILL FOLLOW Anaerobe Identification OnlyPerformed at: [facility] Anaerobe Identification Only WILL FOLLOW Anaerobe Identification [id number] [place], [place] [id number] Anaerobe Identification Only WILL FOLLOW Anaerobe Identification OnlyLab Director: Daron Almanza PhD, Phone: [phone] Anaerobe Identification Only WILL FOLLOW Performing Lab:see note - [facility] LB SEE REPORT - Curing Finisher Id information not found for OBX-specific news producer legend Aerobe ID + Suscept Reviewed date:09/04/2024 07:21:01 [...] O:KLEBPN Isolated Aerobe ID + SusceptGram negative jeffery Organism: 1.2 Antibiotic Interpretation SANDHYA [...] LC - [facility] LB SEE REPORT - Curing Finisher Id information not found for OBX-specific news producer legend MAGNESIUM Reviewed date:08/31/2024 05:12:17 PM Interpretation: Performing Lab: Notes/Report: [facility] ,Magnesium1.91.8-2.4 mg/dLPerforming Lab:see noteML - [facility] LB PROF CHEM 8 (BAS METB) Reviewed date:08/31/2024 05:12:17 PM Interpretation: Performing Lab: Notes/Report: [facility] ,Yhhsfw109801-024 mmol/LPotassium3.53.5-5.1 mmol/JPgfddkqh78399-168 mmol/LCarbon Gwsrzxv33.821.0-32.0 mmol/LAnion Gap13.9Qxdhdmz2348-780 mg/dLBlood Urea Nitrogen3.07.0-18.0 mg/dLCreatinine0.510.55-1.02 mg/dLEstimated GFR ( Shelby>60>=60 mL/min/1.73m 2Estimated GFR (Non- Caroline>60>=60 mL/min/1.73m 2BUN Creatinine Ratio5.8Welkoni0.28.5-10.1 mg/dLPerforming Lab:see noteML - [facility] LBCBC no Diff (Hemogram) Reviewed date:08/31/2024 05:12:17 PM Interpretation: Performing Lab: Notes/Report: [facility] ,White Blood Count3.34.0-11.0 10 3/uLRed Blood Count3.384.20-5.40 10 6/uL Lgfvapotsl68.112.0-16.0 g/aGIxpyjqfigh21.236.0-48.0 %Mean Corpuscular Zchpow44.3 81.0-99.0 fLMean Corpuscular Dfdvqicbax85.926.7-34.0 pgMean Corpuscular HGB Conc 32.429.9-35.2 g/dLRed Cell Distribution Width13.711.0-15.0 %Platelet Lekke897 150-450 10 3/uLMean Platelet Ytwlbi79.89.5-13.5 fLPerforming Lab:see [facility] LBHCG Qualitative* Reviewed date:08/31/2024 05:12:17 PM Interpretation: Performing Lab: Notes/Report: [facility] ,HCG QualitativeNEGATIVENEGATIVEPerforming Lab:see note - [facility] LBCA echo doppler complete Reviewed date:09/04/2024 02:45:30 PM Interpretation: Performing Lab: Notes/Report: Source Facility: [place] [address] Cardiology Report Signed Patient: JUAN GARCIA MR#: [id number] : 1990 Acct:[id number] Age/Sex: 34 / F ADM Date: 08/28/24 Loc: MS 218-[address]: Kal Wilson M.D. Ordering Physician: Kal Wilson M.D. Date of Service: 09/01/24 Procedure(s): CA echo doppler complete Accession Number(s): [id number] cc: Brtit Alas M.D.; Kal Wilson M.D. Patient Name: JUAN GARCIA MR#: [id number] : 1990 Exam Date: 09/01/2024 Ordering Doctor: [...] Area (VTI): 3.35 cm2, 3.28 cm2 Deceleration Weber: Pressure Half-Time: Peak Velocity(Antegrade Flow): 1.25 m/s, [...] M.D. Signed By: 09/03/241826 DD/ 24 TD/TT: Tree Doctor:CBC AUTO DIFF Reviewed date:09/20/2024 12:30:47 PM Interpretation: Performing Lab: Notes/Report: [facility] ,White Blood Count5.24.0-11.0 10 3/uLRed Blood Count4.094.20-5.40 10 6/uL Yqfpgkheyy59.112.0-16.0 g/zHZcjdcjkbgd66.436.0-48.0 %Mean Corpuscular Gllonn90.4 81.0-99.0 fLMean Corpuscular Dwcnptyzsq04.626.7-34.0 pgMean Corpuscular HGB Conc 32.429.9-35.2 g/dLRed Cell Distribution Width14.011.0-15.0 %Platelet Rxvbh290 150-450 10 3/uLMean Platelet Cfyohp54.39.5-13.5 fLNeutrophils Percent Auto55.3 43.0-75.0 %Lymphocytes Percent Auto34.820.5-60.0 %Monocytes Percent Auto6.41.7- 12.0 %Eosinophils Percent Auto2.50.9-7.0 %Basophils Percent Auto0.80.2-2.0 % Immature Granulocytes Pct Auto0.20.0-0.5 %Neutrophils Absolute Auto2.91.4-6.5 10 3/uLLymphocytes Absolute Auto1.81.2-3.8 10 3/uLMonocytes Absolute Auto0.30.3- 0.8 10 3/uLEosinophils Absolute Auto0.10.0-0.7 10 3/uLBasophils Absolute Auto0.0 0.0-0.1 10 3/uLImmature Granulocytes Abs Auto0.010.00-0.03 10 3/uLPerforming Lab:see noteML - [facility] LBLACTATE or LACTIC ACID Reviewed date:09/20/2024 12:30:47 PM Interpretation: Performing Lab: Notes/Report: [facility] ,Lactate/Lactic Acid0.90.4-2.0 mmol/LPerforming Lab:see noteML - [facility] LBPROF CHEM 8 (BAS METB) Reviewed date:09/20/2024 12:30:47 PM Interpretation: Performing Lab: Notes/Report: [facility] ,Frvuev397590-210 mmol/LPotassium3.73.5-5.1 mmol/UWzwrmfmc65304-041 mmol/LCarbon Vymplgm73.921.0-32.0 mmol/LAnion Gap12.1Jqkfums8454-709 mg/dLBlood Urea Nitrogen7.07.0-18.0 mg/dLCreatinine0.630.55-1.02 mg/dLEstimated GFR ( Shelby>60>=60 mL/min/1.73m 2Estimated GFR (Non- Caroline>60>=60 mL/min/1.73m 2BUN Creatinine Ratio11.6Rzkjqhu6.98.5-10.1 mg/dLPerforming Lab:see noteML - [facility] LBCBC AUTO DIFF Reviewed date:10/24/2024 02:11:49 PM Interpretation: Performing Lab: Notes/Report: [facility] ,White Blood Count3.64.0-11.0 10 3/uLRed Blood Count3.754.20-5.40 10 6/uL Xxekonqmrw59.412.0-16.0 g/wGMlmdfapryr14.436.0-48.0 %Mean Corpuscular Ufgogc98.1 81.0-99.0 fLMean Corpuscular Txviiqzywq37.426.7-34.0 pgMean Corpuscular HGB Conc 34.129.9-35.2 g/dLRed Cell Distribution Width13.711.0-15.0 %Platelet Qhqme438 150-450 10 3/uLMean Platelet Wngxme97.79.5-13.5 fLNeutrophils Percent Auto54.6 43.0-75.0 %Lymphocytes Percent Auto36.420.5-60.0 %Monocytes Percent Auto7.31.7- 12.0 %Eosinophils Percent Auto1.10.9-7.0 %Basophils Percent Auto0.60.2-2.0 % Immature Granulocytes Pct Auto0.00.0-0.5 %Neutrophils Absolute Auto2.01.4-6.5 10 3/uLLymphocytes Absolute Auto1.31.2-3.8 10 3/uLMonocytes Absolute Auto0.30.3- 0.8 10 3/uLEosinophils Absolute Auto0.00.0-0.7 10 3/uLBasophils Absolute Auto0.0 0.0-0.1 10 3/uLImmature Granulocytes Abs Auto0.000.00-0.03 10 3/uLPerforming Lab:see noteML - [facility] LBCRP Reviewed date:10/24/2024 02:11:49 PM Interpretation: Performing Lab: Notes/Report: [facility] ,C Reactive Protein<0.50<=0.50 mg/dLPerforming Lab:see noteML - [facility] LBPROF CHEM 8 (BAS METB) Reviewed date:10/24/2024 02:11:49 PM Interpretation: Performing Lab: Notes/Report: [facility] ,Yewarf853054-480 mmol/LPotassium3.73.5-5.1 mmol/CYqrohqtp61791-623 mmol/LCarbon Xgqflaw48.321.0-32.0 mmol/LAnion Gap15.4Mrxjsze9960-037 mg/dLBlood Urea Nitrogen4.07.0-18.0 mg/dLCreatinine0.630.55-1.02 mg/dLEstimated GFR ( Shelby>60>=60 mL/min/1.73m 2Estimated GFR (Non- Caroline>60>=60 mL/min/1.73m 2BUN Creatinine Ratio6.9Oxnvoxs3.38.5-10.1 mg/dLPerforming Lab:see noteML - [facility] LBHCG Qualitative* Reviewed date:10/29/2024 12:41:46 PM Interpretation: Performing Lab: Notes/Report: [facility] ,[facility] QualitativeNEGATIVENEGATIVEPerforming Lab:see note - [facility] LBCT angio chest Reviewed date:11/15/2024 01:03:51 PM Interpretation: Performing Lab: Notes/Report: Source Facility: [place] [address] CT Scan Report Signed Patient: JUAN GARCIA MR#: [id number] : 1990 Acct:[id number] Age/Sex: 34 / F ADM Date: 11/14/24 Loc: ER Attending Dr: Ordering Physician: Otilio Klein Date of Service: 11/14/24 Procedure(s): CT angio chest Accession Number(s): [id number] cc: Britt Alas M.D. [place] [address] Patient Name: JUAN GARCIA MRN: [id number] date: 1990 Sex: F Assigned Patient Location: ED.MAIN Current Patient Location: ED.MAIN Accession/Order Number: [id number] Exam Date: 11/14/2024 18:33 Report Date: 11/14/2024 [...] Davis M.D. 11/14/2024 7:14 PM Dictation Location: [place] Electronically authenticated by: [id number] Y Date: 11/14/2024 19:14 Dictated By: Massimo Davis D.O. Signed By: 11/14/241916 DD/ 13 TD/TT: Tree Doctor:CT angio abdomen pelvis Reviewed date:11/15/2024 01:03:51 PM Interpretation: Performing Lab: Notes/Report: Source Facility: [place] [address] CT Scan Report Signed Patient: JUAN GARCIA MR#: [id number] : 1990 Acct:[id number] Age/Sex: 34 / F ADM Date: 11/14/24 Loc: ER Attending Dr: Ordering Physician: Otilio Klein Date of Service: 11/14/24 Procedure(s): CT angio abdomen pelvis Accession Number(s): [id number] cc: Britt Alas M.D. [place] [address] Patient Name: JUAN GARCIA MRN: [id number] date: 1990 Sex: F Assigned Patient Location: ED.MAIN Current Patient Location: ED.MAIN Accession/Order Number: [id number] Exam Date: 11/14/2024 18:33 Report Date: 11/14/2024 [...] Davis M.D. 11/14/2024 7:14 PM Dictation Location: [place] [address] Electronically authenticated by: [id number] Y Date: 11/14/2024 19:14 Dictated By: Massimo Davis D.O. Signed By: 11/14/241916 DD/ 13 TD/TT: Tree Doctor:PROF Hickey(COMP METB) Reviewed date:11/30/2024 07:01:13 PM Interpretation: Performing Lab: Notes/Report: [facility] ,Gtzwbk514908-760 mmol/LPotassium3.83.5-5.1 mmol/MWlirwmwh32465-788 mmol/LCarbon Hixjsgr67.721.0-32.0 mmol/LAnion Gap15.7Omlqvcp5194-494 mg/dLBlood Urea Nitrogen9.07.0-18.0 mg/dLCreatinine0.660.55-1.02 mg/dLEstimated GFR ( Shleby>60>=60 mL/min/1.73m 2Estimated GFR (Non- Caroline>60>=60 mL/min/1.73m 2BUN Creatinine Ratio13.6Gntqqhw0.28.5-10.1 mg/dLBilirubin Total0.30.2-1.0 mg/dL Aspartate Amino Vswqxgpxfvs5471-43 U/LAlanine Abdbsukqwbxnovej5273-80 U/L Alkaline Hoxwmbpmmir5827-630 U/LTotal Protein6.56.4-8.2 g/dLAlbumin Level3.23.4- 5.0 g/dLGlobulin3.3Albumin Globulin Ratio1.0Performing Lab:see noteML - [facility] Reason For Referral No Information Medications Medication SIG (Take, Route, Frequency, Duration) Notes Start Date End Date Status Verapamil HCl 40 MG 1 tablet Oral every 8 hours; Duration: 30 days ActivehydrOXYzine HCl 50 MG1 tablet Orally Once a day at bedtime; Duration: 30 daysActivePlavix 75 MG1 tablet Orally Once a day5ActiveNitroglycerin 0.4 MG1 sl Sublingual Q 5 min as needed for chest pain11/29/2024tiveOneTouch Ultra 2 w/DeviceUSE TO MONITOR BLOOD GLUCOSE LEVELS DAILY; Duration: 30Active HYDROcodone-Acetaminophen 5-325 MG 1 - 2 tablet as needed - max 6/day Orally every 6 hrs; Duration: 30 days K56.600 K56.652985ActivetraMADol HCl 50 MG 1 tablet as needed Orally qid; Duration: 30 days As needed PRN11213AhcbqjGvzcrizsps-HTQY-Nmzxxpks 50-325-40 MGTAKE 1 TABLET BY MOUTH EVERY [...] Once daily; Duration: 90 days Dx: E11.9 5ActiveSucralfate 1 GM1 tablet on an empty stomach [...] DaysActiveTriamcinolone Acetonide 0.1 %1 application Externally bid 09/27/2024tivetraZODone HCl 100 MG1 tablet Orally riqobdm4211/18/2023ctive Metoclopramide HCl 10 MG1 tablet before meals Orally achs; Duration: 30 days 08/07/2024tiveCompazine 10 MG1 tablet as needed Orally Three times a day 12/22/2023ctiveTopamax 100 MG1 tablet Orally BID; Duration: 30 days06/23/2023 ActiveHydrocortisone 10 MG1 tablet with food or milk Orally once a dayPRN- InjectionActivefentaNYL 25 MCG/HR 1 patch to skin Transdermal Q 3 days K56.600 12/04/2024tivefentaNYL 12 MCG/HR 1 patch to skin Transdermal Q3d; Duration: 30 days with a 25mcg patch 12/05/2024tiveFreeStyle Hunter 3 ReaderUse to monitor glucose levels [...] alcohol in the p ast year? No Dhjrus9KljjhmxcouanreBgpqoipg Problems Problem Type SNOMED Code ICD Code Onset Dates Problem Status W/U Status Risk Notes Problem Gastroparesis (011636945) Gastroparesis ( K31.84) ActiveconfirmedProblemPostgastric surgery syndrome (18459706)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)ActiveconfirmedProblemAsthma (600041181)Asthma (J45.909)Active confirmedProblemGastroesophageal reflux disease (213916122)GERD (gastroesophageal reflux disease) (K21.9)ActiveconfirmedProblemHypothyroidism (04961957)Hypothyroidism (E03.9)ActiveconfirmedProblemCoronary artery disease (02511461)CAD (coronary artery disease) (I25.10)ActiveconfirmedProblemAnxiety (49293793)Anxiety (F41.9)ActiveconfirmedProblemMigraine (50063568)Migraine (G43.909)ActiveconfirmedProblemIrritable bowel syndrome (11963836)IBS (irritable bowel syndrome) (K58.9)ActiveconfirmedProblemGeneralized anxiety disorder (27303000)EDWAR (generalized anxiety disorder) (F41.1)ActiveconfirmedProblemLumbar radiculopathy (842830247)Lumbar radiculopathy (M54.16)ActiveconfirmedProblem Allergic conjunctivitis (598662854)Allergic conjunctivitis (H10.10)Active confirmedProblemAcquired hypothyroidism (927500362)Acquired hypothyroidism (E03.9)ActiveconfirmedProblemHypoglycemia (159916367)Hypoglycemia (E16.2)Active confirmedProblemAnxiety disorder (319102616)Anxiety disorder (F41.9)Active confirmedProblemNeutropenia (550175648)Neutropenia (D70.9)ActiveconfirmedProblem Sepsis (61783321)Sepsis (A41.9)ActiveconfirmedProblemIdiopathic sleep related non-obstructive alveolar hypoventilation (032172683)Hypoxia, sleep related (G47.34)ActiveconfirmedProblemLeukocytosis (795140098)Elevated white blood cell count (D72.829)ActiveconfirmedProblemEdema (265018573)Facial edema (R60.0)Active confirmedProblemGastrostomy present (322429336)PEG (percutaneous endoscopic gastrostomy) status (Z93.1)ActiveconfirmedProblemSevere protein calorie malnutrition (803765329)Severe protein-calorie malnutrition (E43)Activeconfirmed ProblemDisorder of endocrine system (971344880)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.9)ActiveconfirmedProblemMalnutrition of moderate degree (Baxter: 60% to less than 75% of standard weight) (69642548)Moderate malnutrition (E44.0)Active confirmedProblemGastrostomy present (106766332)Feeding by G-tube (Z93.1)Active confirmedProblemGastrostomy present (031903275)Gastrostomy in place (Z93.1) ActiveconfirmedProblemJejunostomy tube, device (physical object) (829036374) Jejunostomy tube present (Z93.4)ActiveconfirmedProblemIntestinal obstruction (48294313)Partial intestinal obstruction, unspecified as to cause (K56.600) Activeconfirmed Vital Signs Blood pressure diastolic 88 mm Hg 11/23/2024 Prqbsk77 in11/23/2024lood pressure wucurcnf656 mm Hg11/23/20244763Gjonjv390.4 lbs 11/23/2024BMI29.11 kg/m211/23/2024 Encounters Encounter Location Date Provider Diagnosis [facility] [address] [place] [place] [address] 12/07/2024 Brandyn Hoy [facility] [place] [place] [address] 11/27/2024Doug HoyGERD (gastroesophageal reflux disease) [facility] [place] [place] [address]/20/2025Doug Edith Nourse [facility] [place] [address] 12/04/2024[facility] [place] [address]/21/2025Doug HoyGERD (gastroesophageal reflux disease) K21.9 [facility] [facility] [place] [address] 12/05/2024Doug HoyIBS (irritable bowel syndrome) K58.9[facility] [facility] [place] [address]/[facility] [facility] [place] [address]/ Brandyn HoyBUniversity of [facility] Hospital[address] [facility] [place] [address] 11/16/2024[facility] [facility] [place] [address]/09/2024[facility] [facility] [place] [address]/10/2024[facility] [facility] [place] [address]/10/2024[facility] [facility] [place] [address]/11/2024[facility] [facility] [place] [address]/04/2024 Brandyn [facility] [facility] [place] [address]/04/2024[facility] [facility] [place] [address]/10/2024Doug HoySepsis A41.9BUniversity of [facility] Hospital[address] [facility] [place] [address]/12/2024[facility] [facility] [place] [address]/01/2025 Brandyn HoyGERD (gastroesophageal reflux disease) K21.9[facility] [facility] [place] [address]/01/2025[facility] [facility] [place] [address]/ Brandyn [facility] [place] [address] 10/04/2024[facility] [facility] [place] [address]/[facility] [facility] [place] [address]/Doug HoyGERD (gastroesophageal reflux disease) K21.9BUniversity [facility] Hospital[address] [facility] [place] [address]/03/2024Doug HoyIBS (irritable bowel syndrome) K58.9[facility] [facility] [place] [address]/03/2024Doug [facility] [facility] [place] [address]/02/2024 Brandyn HoyGERD (gastroesophageal reflux disease) K21.9[facility] [facility] [place] [address]/04/2024Doug [facility] [place] [place] [address]/05/2024 Brandyn HoyPartial intestinal obstruction, unspecified as to cause K56.600Bu[facility] [facility] [place] [address]/ Brandyn HoGood [facility] [facility] [place] [address] 09/29/2024Doug HoyGERD (gastroesophageal reflux disease) K21.9[facility] [facility] [place] [address]/Doug HoyIBS (irritable bowel syndrome) K58.9[facility] [facility] [place] [address]/Doug HoyGERD (gastroesophageal reflux disease) K21.9[facility] [facility] [place] [address]/Doug HoyGERD (gastroesophageal reflux disease) K21.9[facility] [facility] [place] [address]/ [facility] [facility] [place] [address]/[facility] [facility] [place] [address]/[facility] [facility] [place] [address]/[facility] [facility] [place] [address]/Doug [facility] [facility] [place] [address]/02/2024 Brandyn HoyPartial intestinal obstruction, unspecified as to cause K56.600BVEvans [facility] [facility] [place] [address]/02/2024 [facility] [facility] [place] [address]/02/2024Doug [facility] [facility] [place] [address]/04/2024Doug HoyGERD (gastroesophageal reflux disease) K21.9[facility] [facility] [place] [address] 08/21/2024Doug [facility] [facility] [place] [address]/Doug HoyGERD (gastroesophageal reflux disease) K21.9[facility] [facility] [place] [address]/07/2024 Brandyn HoyPartial intestinal obstruction, unspecified as to cause K56.600 and GERD (gastroesophageal reflux disease) K21.9[facility] [facility] [place] [address]/07/2024Doug HoyBUniversity of [facility] Hospital[address] [facility] [place] [address]/Doug HoyBUniversity of [facility] Hospital[address] [facility] [place] [address]/Doug Hoy GERD (gastroesophageal reflux disease) K21.9[facility] [facility] [place] [address]/Doug HoyElevated white blood cell count D72.829[facility] [facility] [place] [address]/Doug HoyGERD (gastroesophageal reflux disease) K21.9BVEvans Army Community Hospital[address] [facility] [place] [address]/ Brandyn HoyBUniversity of [facility] Hospital[address] [facility] [place] [address] 06/12/2024Doug HoyGERD (gastroesophageal reflux disease) K21.9BUniversity of [facility] Hospital[address] [facility] [place] [address]/10/2024Doug Hoy Partial intestinal obstruction, unspecified as to cause K56.600 and GERD (gastroesophageal reflux disease) K21.9BVEvans Army Community Hospital[address] [facility] [place] [address]/Doug Ho[facility] [address] [facility] [place] [address]/Doug HoGood [facility] [facility] [place] [address]/Doug HoyBUniversity of [facility] Hospital[address] [facility] [place] [address]/ Brandyn HoyGERD (gastroesophageal reflux disease) K21.9BUniversity of [facility] Hospital[address] [facility] [place] [address]/Doug HoGood [facility] [facility] [place] [address]/03/2024Doug Hoy GERD (gastroesophageal reflux disease) K21.9BUniversity of [facility] Hospital[address] [facility] [place] [address]/08/2024Doug HoNorth [facility] [facility] [place] [address]/12/2024Doug HoyPartial intestinal obstruction, unspecified as to cause K56.600[facility] [facility] [place] [address]/05/2024Doug HoNorth [facility] [place] [facility] [place] [address]/05/2024 Brandyn HoyHypoglycemia E16.2BF[facility] [facility] [place] [address]/08/2024Doug HoyGERD (gastroesophageal reflux disease) K21.9[facility] [facility] [place] [address] 04/21/2024Doug HoGood [facility] [facility] [place] [address]/Doug HoyPartial intestinal obstruction, unspecified as to cause K56.600[facility] [facility] [place] [address]/Doug HoNorth [facility] [facility] [place] [address]/Doug HoyPartial intestinal obstruction, unspecified as to cause K56.600[facility] [facility] [place] [address]/Doug HoyPartial intestinal obstruction, unspecified as to cause K56.600BuHealth[facility] [facility] [place] [address]/Doug HoyPartial intestinal obstruction, unspecified as to cause K56.600BVEvans Army Community Hospital[address] [place] [place] [address]/Doug HoyGERD (gastroesophageal reflux disease) K21.9[facility] [facility] [place] [address] 04/10/2024Doug HoNorth [facility] [facility] [place] [address]/Doug Ho[facility] [facility] [place] [address]/05/2024Doug HoNorth [facility] [facility] [place] [address]/06/2024Doug HoyBUniversity of [facility] Hospital[address] [facility] [place] [address]/08/2024Doug HoyGERD (gastroesophageal reflux disease) K21.9BVEv[facility] Army [facility] Hospital[address] [facility] [place] [address]/11/2024Doug HoyGERD (gastroesophageal reflux disease) K21.9[facility] [facility] [place] [address]/01/2025Doug HoyBUniversity of [facility] Hospital[address] [facility] [place] [address]/Doug HoyPartial intestinal obstruction, unspecified as to cause K56.600BuHealth[facility] [facility] [place] [address]/Doug HoyGERD (gastroesophageal reflux disease) K21.9[facility] Xolpf[facility]ull[address] [place] [address]/Doug HoGood [facility] [place] [address]/Doug HoyPartial intestinal obstruction, unspecified as to cause K56.600BVEvans Army Community Hospital[address] [place] [address]/Doug HoNorth [facility] [place] [address]/[facility] [place] [address]/Doug HoyGERD (gastroesophageal reflux disease) K21.9[facility] [facility] [place] [address]/oug HoyPartial intestinal obstruction, unspecified as to cause K56.600BVEvans Army Community Hospital[address] [place] [address]/oug HoyGERD (gastroesophageal reflux disease) K21.9[facility] [place] [address]/4Doug [facility] [place] [address]/4Doug [facility] [place] [address]/4Doug HoGood [facility]aritan Medical [facility] [place] [address]/07/2024Doug Hoy GERD (gastroesophageal reflux disease) K21.9[facility] [place] [address]/4Doug HoGood [facility]aritan Medical [facility] [place] [address]/4Doug HoyGERD (gastroesophageal reflux disease) K21.9[facility] [place] [address]/ouV[facility] [place] [address]/g [facility] [place] [address] Brandyn [facility] [place] [address] 02/04/2024oug [facility] [place] [address]/20/2024ouMount [facility] [place] [address]g HoyGERD (gastroesophageal reflux disease) K21.9[facility] [place] [address] 01/11/2024ouV[facility] [place] [address]/ouMount [facility] [place] [address]/g HoyAnxiety F41.9BF[facility] [place] [address]/[facility] [place] [address] Brandyn HoyTestosterone deficiency E29.1BF[facility] [place] [address]ou[facility] [place] [address]/ou[facility] [place] [address] Brandyn HoGood [facility]aritan [facility] [place] [facility] [place] [address] 01/03/2024oug HoNorth [facility] [place] [facility] [place] [place] [address]/18/2024oug HoyPartial intestinal obstruction, unspecified as to cause K56.600[facility] [place] [facility] [place] [address]/oug HoyBUniversity of [facility] Hospital[address] [place] [facility] [place] [address]/oug HoNorth [facility] [place] [place] [address]/oug HoyGERD (gastroesophageal reflux disease) K21.9 ; Hypothyroidism E03.9 ; Anxiety F41.9 and IBS (irritable bowel syndrome) K58.9BLaura [place] [address] [place] [place] [address]/05/2024Doug HoyGERD (gastroesophageal reflux disease) K21.9 and Hypoglycemia E16.2BLaura [place] [address] [place] [place] [place] [address]/Doug HoyGERD (gastroesophageal reflux disease) K21.9 ; Severe protein-calorie malnutrition E43 ; PEG (percutaneous endoscopic gastrostomy) status Z93.1 and Acquired hypothyroidism E03.9BLaura [place] [address] [place] [place] [place] [address]/09/2024Doug Hoy Gram negative sepsis A41.50BuJoshua [place] [address] [place] [place] [address]/Doug HoySepsis A41.9BLaura [place] [address] [place] [address]/Doug HoyGERD (gastroesophageal reflux disease) K21.9 ; IBS (irritable bowel syndrome) K58.9 and Severe protein-calorie malnutrition P88BockcmjLaura [address] [place] [address]/Doug HoyCAD (coronary artery disease) I25.10 and Moderate malnutrition E44.0[facility] [address] [place] [address]/10/2024Doug HoyHypoglycemia E16.2 and IBS (irritable bowel syndrome) K58.9BF[facility] [place] [address]/oug HoyGERD (gastroesophageal reflux disease) K21.9 ; Severe protein-calorie malnutrition E43 ; Hypothyroidism E03.9 and Partial intestinal obstruction, unspecified as to cause K56.600 [address] [place] [address] 04/10/2024Doug HoyHypoglycemia E16.2BLaura [place] [address] [place] [address]/06/2024Doug HoyHypoglycemia E16.2 Assessments Encounter Date Diagnosis (ICD Code) [...] F41.9)01/26/2024GERD (gastroesophageal reflux disease) (ICD-10 - K21.9) 4Partial intestinal obstruction, unspecified as to cause (ICD-10 - K56.600)02/07/2024GERD (gastroesophageal reflux disease) (ICD-10 - K21.9) 02/21/2024GERD (gastroesophageal reflux disease) (ICD-10 - K21.9)03/03/2024GERD (gastroesophageal reflux disease) (ICD-10 - K21.9)03/06/2024Partial intestinal obstruction, unspecified as to cause (ICD-10 - K56.600)03/13/2024GERD (gastroesophageal reflux disease) (ICD-10 - K21.9)03/24/2024GERD (gastroesophageal reflux disease) (ICD-10 - K21.9)03/27/2024 (gastroesophageal reflux disease) (ICD-10 - K21.9)2024Partial intestinal obstruction, unspecified as to cause (ICD-10 - K56.600)04/04/2024Partial intestinal obstruction, unspecified as to cause (ICD-10 - K56.600)04/04/2024 Partial intestinal obstruction, unspecified as to cause (ICD-10 - K56.600) 04/06/2024Partial intestinal obstruction, unspecified as to cause (ICD-10 - K56.600)04/07/2024GERD (gastroesophageal reflux disease) (ICD-10 - K21.9) 04/18/2024Hypoglycemia (ICD-10 - E16.2)04/21/2024 (gastroesophageal reflux disease) (ICD-10 - K21.9)04/27/2024Partial intestinal obstruction, unspecified as to cause (ICD-10 - K56.600)05/04/2024 (gastroesophageal reflux disease) (ICD-10 - K21.9)05/17/2024GERD (gastroesophageal reflux disease) (ICD-10 - K21.9)05/26/2024Partial intestinal obstruction, unspecified as to cause (ICD-10 - K56.600)05/30/2024D (gastroesophageal reflux disease) (ICD-10 - K21.9) 06/12/2024GERD (gastroesophageal reflux disease) (ICD-10 - K21.9)06/23/2024 Partial intestinal obstruction, unspecified as to cause (ICD-10 - K56.600) 01/03/2024 (gastroesophageal reflux disease) (ICD-10 - K21.9)01/03/2024 Severe protein-calorie malnutrition (ICD-10 - E43)01/10/2024GERD (gastroesophageal reflux disease) (ICD-10 - K21.9)01/10/2024Hypothyroidism (ICD- 10 - E03.9)08/04/2024GERD (gastroesophageal reflux disease) (ICD-10 - K21.9) 08/09/2024Elevated white blood cell count (ICD-10 - D72.829)08/15/2024Partial intestinal obstruction, unspecified as to cause (ICD-10 - K56.600)08/17/2024GERD (gastroesophageal reflux disease) (ICD-10 - K21.9)08/31/2024D (gastroesophageal reflux disease) (ICD-10 - K21.9)09/04/2024GERD (gastroesophageal [...] - K58.9)03/21/2024GERD (gastroesophageal reflux disease) (ICD-10 - K21.9)02/04/2025Hypoglycemia (ICD-10 - E16.2)04/10/2024Hypoglycemia (ICD-10 - E16.2)04/19/2024Hypoglycemia (ICD-10 [...] - K21.9)01/10/2024IBS (irritable bowel syndrome) (ICD-10 - K58.9)5Acquired hypothyroidism (ICD-10 - E03.9) 01/03/2024artial intestinal obstruction, [...] Culture 1 08/22/2024 Blood Culture 2 09/11/2024 ECG 12 lead 12/07/2024 ECG 12 lead 12/07/2024 BLOOD CULTURE 10/24/2024 Sjogren's Ab, Anti-SS-A/-SS-B 08/03/2023 US abdomen complete 09/05/2023 US abdomen complete 09/06/2023 Insurance Providers Payer Name Payer Address Payer Phone Subscriber Number Group Number Insured Name Patient Relationship to Insured Coverage Start Date Coverage End Date [employer] [place] [employer] [address] [address] [place] [address] [id number] Brent Garcia - patient is the insured Medications Administered Medication Instructions Date of Administration Dosage Notes Ceftriaxone 1 gram g1 gramDexamethasone, 4mg/mL2 mg12 Medical (General) History Medical History History ICD Code IBS (irritable bowel syndrome) K58.9 Anxiety F41.9 Asthma J45.909 GERD (gastroesophageal reflux disease) K 21.9 Migraine G43.909 Hypothyroidism E03.9 Surgical History Surgery Date(Month/Year) DELIVERYx3 Gastric /2022APPENDECTOMYCHOLECYSTECTOMYMALS Opqunzy22/2024J Tube unsjgmh4056Frmx Zjthebrzjvv4163Chfotupx Nttaboh3839Yueeqazvoytquzo History Reason Date(Month/Year) Chest Pain 11/2024 Heart Attack- [facility] 10/2024 [place]/ Bacteremia 09/2024 Sepsis 08/2024 Hypoglycemia/ Bowel Obstruction 02/07 [facility] [place] Hypoglycemia 01/08 [facility]- malnutrition, DM 06/2023 see above- [facility], [place]
--- OUTSIDE RECORDS SUMMARY | 2024-12-08 21:04 | XMS_ITS | Clinical Summary ---
Author Organization [employer] tem Address [id number] [address] [place] [address] Care Team Providers Care Louver Mortiser Operator Name Role Phone No Pcp, No Pcp Primary Care Provider Unavailabl e Allergies Active AllergyReactionsCriticalityNoted GsrwRmbaongjAgbemvl97/18/2018 Medications MedicationSigDispense QuantityRefillsLast FilledStart DateEnd DateStatus levothyroxine [...] breakfast.Active lancets (ONETOUCH DELICA LANCETS) 33 gauge [facility] Indications:Abnormal glucose tolerance affecting , antepartumOne touch [...] Problems ProblemNoted DateDiagnosed DateHypothyroidism affecting in second utwhojmlj67/08/2018 Family History Medical HistoryRelationNameCommentsThyroid diseaseFatherDiabetesMaternal GrandfatherHypertensionMaternal GrandfatherThyroid diseaseMaternal Grandfather HypertensionMaternal GrandmotherDiabetesMotherHypertensionMotherHypertension Paternal GrandfatherDiabetesPaternal GrandmotherHypertensionPaternal Grandmother Thyroid diseasePaternal GrandmotherRelationNameStatusCommentsFatherMaternal GrandfatherMaternal GrandmotherDeceasedMotherPaternal GrandfatherPaternal GrandmotherDeceased Social History Tobacco UseTypesPacks/DayYears UsedDateSmoking Tobacco: NeverSmokeless Tobacco: NeverAlcohol UseStandard Drinks/WeekCommentsNo0 (1 standard drink = 0.6 oz pure alcohol)ChildcareAnswerDate CwbnflilTohhowlmbLuhxuoq00/09/2019EmploymentAnswer Date AqhqrlseEgekiiabmuPgbtccs66/09/2019Purpose - LifeAnswerDate RecordedPurpose and direction in wifjZbaskdj44/11/2021CommentsNoSex and Gender InformationValueDate RecordedSex Assigned at BirthNot on fileLegal SexFemale 09/20/2014 11:41 AM EDTGender IdentityNot on fileSexual OrientationNot on file Last Filed Vital Signs Vital SignReadingTime TakenCommentsBlood Tjkpuhrd755/71003/15/2019 9:28 AM EST Elgne319603/15/2019 9:28 AM ESTTemperature--Respiratory Rate--Oxygen Saturation-- Inhaled Oxygen Concentration--Wyjpff715 kg (262 lb 5.6 oz)03/15/2019 9:28 AM EST Jhvoyk964.2 cm (5' 7 )01/16/2019 8:31 AM ESTBody Mass Index41.0901/16/2019 8:31 AM EST Plan of Treatment Health MaintenanceDue DateLast DoneCommentsDepression Mlejbfvnl52/17/2002Tobacco Lyjloffip15/17/2002Adult BMI Ejdqdrqod91/17/2008DTaP,Tdap and Td Vaccines (1 - Tdap)2008Pap Smear2010Influenza Dydtygi3010/16/2024 Medical Devices Not on file Insurance Care Teams Team MemberRelationshipSpecialtyStart DateEnd Date No Pcp, No Pcp [place] [id number] [facility]17
--- OUTSIDE RECORDS SUMMARY | 2024-12-08 21:04 | XMS_ITS | Clinical Summary ---
Author Organization [facility] Address [address] [facility] [place] [address] Care Team Providers Care Information Technology Internship Name Role Phone Britt Alas MD Primary Care Provider [phone] Allergies Active AllergyReactionsCriticalityNoted YkzwRhwhktckDcubctrzVgfdZzr87/02/2025 Adhesive Tape-RcfpznoypAgildYjgaca49/23/2020 Sensitive to certain adhesive tapes. Redness and itchy. CodeineNausea And RrvtepcaJxqukv30/02/2025Nsaids (Non-Steroidal Anti- Inflammatory Drug)GI rvswduvrsvrJwvpql35/02/4643RnxjawuvPdhbjzu84/14/2024 Medications MedicationSigDispense QuantityRefillsLast FilledStart DateEnd DateStatus liothyronine [...] day. Give with 25 mcg patchActive HYDROcodone-acetaminophen (Fairview) 5-325 mg tablet Take 2 tablets by [...] times daily.12/04/2024Discontinued ergocalciferol (Vitamin D-2) 1.25 MG (01694 Units) capsule Take 50,000 Units by mouth 1 (one) time per week.11/13/2024Discontinued(Stop Taking at Discharge) fentaNYL (Duragesic) 12 mcg/hr Place 1 patch on the skin every 3rd (third) day. Takes 12 mcg and 25 mcg together every 3 days11/13/2024Discontinued(Stop Taking at Discharge) HYDROcodone-acetaminophen ([place]view) 5-325 mg tablet Take 2 tablets by [...] Problems ProblemNoted DateDiagnosed DateAbnormal thyroid blood test12/05/2024llergic hletgfcfywvrzv29/21/1451Hsedfzhh19/21/2025 Overview (12/05/2024): Problem List clean-up per request of Phys. EHR Cmte Edema12/05/20244643Ljdnakllloxn07/21/8039Fdrkwkfmzlo89/21/2025Otitis media of left ear12/05/2024Postgastric surgery jphtvfby94/21/1854Gixkqgdgf87/21/2025 Overview (12/05/2024): Problem List clean-up per request of Phys. EHR Cmte Common bile duct qfyxprnqfo08/02/2025 Assessment & Plan (11/16/2024 2:13 AM EDT): CT chest/abd/pelvis noted CBD dilation and apperance of complex inflammatory changes. Patient has required multiple doses of opiates and antiemetics to control symptoms. Request to transfer to the [facility] where much of her advanced care has been provided with Specific concern that she may need ERCP/advanced endoscopy to further evaluation Pain management GI consult Disorder of endocrine lqvtgn8411/09/2024Lumbar bngymwkegibfu07/25/2025Migraine 11/09/2024Severe protein-calorie malnutrition ([place]axter: less than 60% of standard weight)11/09/2024Pseudoaneurysm of right femoral lfatzy3811/09/2024 Assessment & Plan (11/12/2024 12:39 PM EDT): [...] pseudoaneurysm 11/02 -stable - follow Hgb Myocardial asvcqo7411/09/2024 Assessment & Plan (11/12/2024 12:39 PM EDT): [...] need to uptitrate verapamil if BP allows Xwvymsru65/18/2025hest pain10/30/2024 Assessment & Plan (11/16/2024 2:13 AM [...] without complication, without long-term current use of kjwhfrg8710/30/2024 Assessment & Plan (11/12/2024 12:39 PM EDT): - [facility] - Blood glucose is well controlled on 11/12 without significant use of insulin Assessment & Plan (11/11/2024 10:32 AM EDT): - [facility] - Blood glucose is well controlled on 11/11 without significant use of insulin Assessment & Plan (11/10/2024 4:18 PM EDT): - [facility] - Blood glucose is well controlled without significant use of insulin Assessment & Plan (11/09/2024 1:43 PM EDT): - [facility] Assessment & Plan (11/02/2024 1:29 PM EDT): - Patient currently taking metformin at home -Continue [facility] Assessment & Plan (11/01/2024 7:33 AM EDT): - Patient currently taking metformin at home -Continue [facility] Assessment & Plan (10/31/2024 11:15 AM EDT): - Patient currently taking metformin at home -Continue [facility] Assessment & Plan (10/30/2024 9:00 PM EDT): - Patient currently taking metformin at home, will begin [facility], [facility] Primary vjdvyefszeuv22/15/2025Other hloecviuvjfohq42/15/3973Dzblxc04/15/2025 Assessment & Plan (11/02/2024 1:29 PM EDT): [...] Stable, last BM yesterday Median arcuate ligament iatzkiak58/15/2025 Assessment & Plan (11/12/2024 12:39 PM EDT): [...] and then MALS release S/P laparoscopic sleeve hsoeqnkjnol56/15/2025 Assessment & Plan (11/12/2024 12:39 PM EDT): [...] 9:00 PM EDT): - Stable Protein calorie ofwlbjhgtsew53/15/2025 Assessment & Plan (11/02/2024 1:29 PM EDT): [...] today patient brought urgently back to [employer] Assessment & Plan (11/01/2024 11:57 AM EDT): [...] -Pending TTE, cath Spontaneous dissection of coronary jrtmbd7810/30/2024 Assessment & Plan (11/12/2024 12:39 PM EDT): [...] today patient brought urgently back to [employer] Feeding aulgmckgkuzi26/09/2025roken central line09/21/2024Long term (current) use of opiate bcwpoqlyg96/07/2025Poor response to enteral daamgxlvi55/28/2025 Sepsis due to Kwzbmuzbtl85/04/2025 Assessment & Plan (08/19/2024 1:03 PM EDT): - source is likely the cellulitis around the J-tube status post J-tube removal. - CT scan from [facility] showing no abscess. - Infectious disease recommendations appreciated, continue with ceftriaxone. - Repeat blood cultures on 08/16: NGTD - central line in place, does not look like infected, continue monitoring, central line care. Assessment & Plan (08/18/2024 12:20 PM EDT): - source is likely the cellulitis around the J-tube status post J-tube removal. - CT scan from [facility] showing no abscess. - Infectious disease recommendations appreciated, continue with ceftriaxone. - Repeat blood cultures on 08/16: NGTD - central line in place, does not look like infected, continue monitoring, central line care. Sepsis due to Jckmexiuuuzt32/04/2025 Assessment & Plan (08/19/2024 1:03 PM EDT): - source is likely the cellulitis around the J-tube status post J-tube removal. - CT scan from [facility] showing no abscess. - Infectious disease recommendations appreciated, continue with ceftriaxone. - Repeat blood cultures on 08/16: NGTD - central line in place, does not look like infected, continue monitoring, central line care. Assessment & Plan (08/18/2024 12:20 PM EDT): - source is likely the cellulitis around the J-tube status post J-tube removal. - CT scan from [facility] showing no abscess. - Infectious disease recommendations appreciated, continue with ceftriaxone. - Repeat blood cultures on 08/16: NGTD - central line in place, does not look like infected, continue monitoring, central line care. Bmgewrqustllb59/04/2025 Assessment & Plan (11/12/2024 12:39 PM EDT): [...] admission. - As needed antiemetics Chronic pain gykvjsee51/04/2025 Assessment & Plan (11/12/2024 12:39 PM EDT): [...] and scheduled tramadol. Continue with as needed Fairview. Assessment & Plan (08/18/2024 12:20 PM EDT): - continue with home meds including fentanyl patch and scheduled tramadol. Continue with as needed Fairview. 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 Assessment & Plan (08/18/2024 12:20 PM EDT): - status postresection. History of adrenal vaqadknmecnqv28/04/2025 Assessment & Plan (11/12/2024 12:39 PM EDT): [...] PM EDT): - continue with dexamethasone Acquired wxvrmvaadfvqhc76/04/2025 Assessment & Plan (11/16/2024 2:13 AM EDT): [...] 12:20 PM EDT): - continue with levothyroxine. Rdnowuarwlcota81/03/2025 Assessment & Plan (11/12/2024 12:39 PM EDT): [...] well as other thyroid function testing Morbid vuhxetz3008/17/2024 Assessment & Plan (08/19/2024 1:03 PM EDT): [...] daily DVT prophylaxis is VTE protocols per [facility] GI prophy Protonix Monitor labs) Obtain blood cultures Comments IV Vanco and cefepime Consult infectious diseases Early ambulation I discussed the plan of care with the patient and she is in agreement. Hwxwcmcmte96/02/2025 Assessment & Plan (08/17/2024 1:27 AM EDT): -Unclear blood cultures - Commence patient on Vanco/cefepime - Monitor patient blood cultures - Also evaluate lab tests and correct abnormalities - Consult infectious disease - Obtain 2D echocardiogram History of laparoscopic uswdmesvhjxtamh93/25/2025hronic, continuous use of vrreexo1504/11/2024Starvation knzqsaxqidik74/25/2025Intestinal ymlzohcml95/07/2024 Screening for diabetes mellitus (DM)01/22/2024History of small bowel obstruction 01/21/2024Impaired intestinal htmhhzoaaa05/18/3658Oyqig98/25/2024urrent use of steroid ckdemprbgv03/21/2024ommunity acquired pneumonia of left lower lobe of lung08/07/2023Idiopathic nwfrketzuti48/21/2024spiration pneumonia of left lower lobe due to vomit08/04/2023Syncope and cguyygib11/19/2024Heart psgdvjy7306/29/2023 Acute renal failure superimposed on chronic kidney hydgbxy1306/29/2023Hypokalemia 06/29/2023ecreased oral swcbqz6305/25/20238154Kjhhhmypddpfvq95/19/2024nxiety and yraahslwdn38/23/2023Feeding dflmbrx0712/07/2022Therapeutic drug monitoring 12/07/20222487Ynijxjynlsg48/12/2023ilious vomiting with axklld3210/28/2022Intractable vomiting with prlaok7510/25/20227412Phoefy16/20/2023 Overview (11/09/2024): Takes Pro FE daily. Last Assessment & Plan: Assessment: iron infusions ~1 month ago Acute pain of right knee08/04/2022all stone08/04/2022Internal derangement of right zzlairnr72/20/2023Mixed incontinence urge and mvjnzc7208/04/2022Other specified noninflammatory disorders of xcfcnv2808/04/2022atellofemoral pain syndrome of right knee08/04/2022Right flank pain08/04/2022Vaginal pain08/04/2022 Rash and nonspecific skin boyvidgq80/07/2023History of Isabel-en-Y gastric bypass 06/24/2022ipolar zacjrkxj57/07/2023astric etwvbp6301/29/2022Iron deficiency kjnwey1011/01/2021Ventral hernia without obstruction or cgynosjy20/27/2022 Overview (12/05/2024): Last Assessment & Plan: Assessment: will have surgery Calculus of vdxaww9903/10/2021bnormal finding on imaging of liver04/07/2020 Moderate recurrent major ovcefhkvay80/18/2020Situational mbvnxz2301/03/2020Panic disorder without rbepmuhzyrz31/06/2020Trauma and stressor-related disorder 11/21/2019Duodenogastric reflux of bile11/16/20193011Zbfbha91/10/2020Preoperative cvmgacogddn18/10/2020Regurgitation of food09/25/2019Laryngopharyngeal reflux 10/07/2018Obstructive sleep apnea fthvqowb86/23/2019 Overview (12/05/2024): wears mask every night Pepzwqgetkiezb51/20/2019Reactive qycewywxrpva43/19/2019Chronic fatigue syndrome 09/19/2018Iron taquutteme69/05/2019Vitamin D fsbwedokzz55/05/2019Insomnia 09/15/2018Maltracking of right mwmgexv4606/27/2018Chondromalacia of patella, right 05/30/2018Arthritis of right knee05/30/201839 weeks gestation of 11/23/2016PCOS (polycystic ovarian syndrome)10/02/2013 Overview (11/09/2024): Last Assessment & Plan: Assessment: monitored per PCP Encounters DateTypeDepartmentCare GjycWsugkgqkccc28/24/2025Telephone [facility] Invasive [facility] Endoscopy [address] [place] [phone] Muna Michael RN 12/06/2024 11:20 AM EDTOffice Visit [facility] [address] [facility] [place] [address] Wali Collins MD Spontaneous dissection of coronary artery (Primary Dx); Other fatigue; Precordial pain; Anemia due to acute blood loss12/06/2024Orders Only [facility] [address] [place] [address] Maryuri Downing MA Anemia, unspecified type (Primary Dx)12/05/2024Orders Only [facility] [address] [place] [address] Siri Dotson MD 12/04/20246687Akwkpd52/17/2025Orders Only [facility] Endoscopy [address] [place] [phone] Muna Michael, DEE Common bile duct dilation (Primary Dx)11/26/2024 7:34 PM EDT - 11/26/2024 9:45 PM EDTEmergency [facility] Emergency [address] [place] [phone] Israel Jeong MD Acute UTI (Primary Dx) Discharge Disposition: Home or Self Care ()11/26/20241983Wxepeg24/01/2025 7:56 PM EDT - 11/17/2024 2:42 PM EDTHospital Encounter [facility] [address] [place] [phone] Sandeep Casey MD Chest pain (Primary Dx) Discharge Disposition: Home-Health Care Svc ()11/15/20241520Jxkjld21/25/2025 10:47 AM EDT - 11/13/2024 2:34 PM EDTHospital Encounter [facility] [address] [place] [phone] Urbano Santos MD Chang, Kyu Chul, MD Schwarz, Stephanie, DO Chest pain (Primary Dx); Chronic narcotic use Discharge Disposition: Home-Health Care Svc (06)11/09/20242876Xjegfc08/18/2025 8:45 PM EDTAnesthesia Event [facility] Main Operating Room [address] [place] [phone] David Reyes MD 11/02/2024 8:45 PM EDT - 11/02/2024 11:15 PM EDTSurgery [facility] Main Operating Room [address] [place] [phone] Jose Angel Fox MD EXPLORATION, HEMATOMA Right Groin11/02/2024 5:41 PM EDT - 11/02/2024 6:41 PM EDT Surgery [facility] Heart [facility] [address] [place] [phone] Wali Collins MD Coronary cosqbmoblfo97/17/2025 12:30 PM EDT - 11/01/2024 1:30 PM EDTSurgery [facility] Heart [facility] [address] [place] [phone] Mitchell Agustin MD Coronary zdevwfumaws46/16/2025 1:30 PM EDT - 10/31/2024 2:30 PM EDTSurgery [facility] [address] [place] [phone] Tino Gilmore MD Coronary oimuvpfzvev65/15/2025 6:28 PM EDT - 11/07/2024 5:10 PM EDTHospital Encounter [facility] [address] [place] [phone] Sandeep Casey MD Spencer, Caleb T, MD Vicente, David, MD Mansur, Sarmed, MD Moukarbel, George, MD Hematoma (Primary Dx); Chest pain; NSTEMI (non-ST elevated myocardial infarction) (CMS/HCC); Spontaneous dissection of coronary artery; Gastroparesis; Gastroesophageal reflux disease without esophagitis Discharge Disposition: [place] [facility] [place]Travelfrom Last 3 Months Family History Medical HistoryRelationNameCommentsNo Known ProblemsFatherNo Known Problems MotherRelationNameStatusCommentsFatherAliveMotherAlive Social History Tobacco UseTypesPacks/DayYears UsedDateSmoking Tobacco: NeverSmokeless Tobacco: Never Tobacco Cessation:Counseling Given: Not Answered Alcohol UseStandard Drinks/WeekCommentsNot Currently0 (1 standard drink = 0.6 oz pure alcohol)[facility] UtilitiesAnswerDate RecordedIn the past 12 months has the [employer], gas, oil, or water [employer] threatened to shut off services in your [...] or living in a senior care (including now)?No11/15/2024Hunger Vital SignAnswerDate RecordedWithin the past 12 months, you worried that your food would run out before you got the money to buymore.Never true11/15/2024Ran Out of Food in the Last YearNot on file 11/15/2024CommentsNoSex and Gender InformationValueDate RecordedSex Assigned at PrwikYirvss66/03/2025 3:45 PM EDTLegal KyfVhhouy60/30/2022 12:07 AM EDTGender TejownsbOfyfsv72/03/2025 3:45 PM EDTSexual OrientationHeterosexual or Yrdvohvn85/03/2025 3:45 PM EDT Last Filed Vital Signs Vital SignReadingTime TakenCommentsBlood Dhdrmcdz123/6012/06/2024 11:10 AM EDT Kxhcg122312/06/2024 11:10 AM UJMQoqfcsvwypo69.6 ??C (97.9 ??F)11/26/2024 7:34 PM EDTRespiratory Tdwb7384 9:25 PM EDTOxygen Cszmykdtvb05%12/06/2024 11:10 AM EDTInhaled Oxygen Concentration--Dwvkcs92.6 kg (180 lb)11/26/2024 7:34 PM EDT Evupwr900.6 cm (5' 6 )12/06/2024 11:10 AM EDTBody Mass Index29.0511/26/2024 7:34 PM EDT Plan of Treatment DateTypeDepartmentCare Team (Latest Contact Info)Hdcambrctgx56/30/2025 9:00 AM EDTAppointment [facility] Endoscopy [address] [place] [address] Braxton Bellamy MD [address] [facility] [place] [place] [address] 12/14/2024 10:30 AM EDTAppointment [facility] X-Ray Imaging [address] [place] [address] 01/31/2025 11:00 AM ESTOffice Visit [facility] Heart at [facility] [address] [place] [facility] [place] [address] Wali Collins MD [address] [place] [address] Health MaintenanceDue DateLast DoneCommentsDiabetes: Retinopathy Screening 1999Depression Sdlxvwdak13/17/2002Varicella Vaccines (1 of 2 - 13+ 2-dose series)2002Diabetes: Urine Protein Qpzbqkloa85/17/2009Hepatitis B Vaccines (1 of 3 - 19+ 3-dose series)2008Pneumococcal Vaccine: Pediatrics (0 to 5 Years) and At-Risk Patients (6 to 64 Years) (1 of 2 - PCV)2008Zoster Vaccines (1 of 2)2008HPV Vaccines (1 - Risk 3-dose SCDM series)2016 HPV/Ntvyyg7504/03/2019Cervical Cancer Shcdqhtto59/06/2024Pap Smear05/22/2023 05/21/2020OVID-19 Vaccine (3 - season)501/05/2021, 06/23/2020 [...] Procedures Procedure NamePriorityDate/TimeAssociated DiagnosisCommentsURINALYSIS MICROSCOPIC WITH REFLEX FIHLSCQJDWI50/12/2025 8:27 PM EDT SERUM SLFDKIBYMUXWYUF20/12/2025 8:27 PM EDT URINALYSIS WITH REFLEX TFKAZKDWIOO66/12/2025 8:27 PM EDT XR CHEST 1 NVGLSVXS17/12/2025 8:17 PM EDT ECG 12-SIIGQHUW08/12/2025 8:13 PM EDT CBC WITH AUTO EYXCVXOCOVBEAUVH17/12/2025 8:05 PM EDT HIGH SENSITIVITY TROPONIN ISTAT1 8:05 PM EDT SEJOWVCLET42/12/2025 8:05 PM EDT COMPREHENSIVE METABOLIC IUJUXMAGQ57/12/2025 8:05 PM EDT CBC AND PQFLHMQSDJPUYGKR64/12/2025 8:05 PM EDT HEPATIC FUNCTION PANELAdd-On11/17/2024 5:17 AM EDT MAGNESIUMPending Pzgevwize15/03/2025 5:17 AM EDT CBCPending Ydlvmlqnu63/03/2025 5:17 AM EDT BASIC METABOLIC PANELPending Metzcjnrm36/04/2024 5:17 AM EDT MR ABDOMEN WO CONTRAST IYVOWBLJ62/02/2025 8:32 PM EDT ECG 12-CNORIxygrft51/02/2025 9:55 AM EDT HEPATIC FUNCTION PANELSTAT Add-on11/16/2024 5:36 AM EDT HIGH SENSITIVITY TROPONIN IAdd-On11/16/2024 5:36 AM EDT PLBShruvue17/02/2025 5:36 AM EDT BASIC METABOLIC VJXWBAvgalxt60/02/2025 5:36 AM EDT XR CHEST 1 FNFKXnzplty28/29/2025 12:51 PM EDT POCT GLUCOSE METER UNSOLICITED IKEGZEPIaosels71/29/2025 11:08 AM EDT HOME O2 EVAL (DESATURATION SCREEN)Lgqpogs8411/13/2024 10:32 AM EDTHIGH SENSITIVITY TROPONIN IPending Vhipvnecr12/29/2025 7:03 AM EDT BASIC METABOLIC PANELPending Vlsxhqtwp95/29/2025 7:03 AM EDT CBCPending Iavfhszvj00/29/2025 7:03 AM EDT POCT GLUCOSE METER UNSOLICITED LKYEMTYZileuhp61/29/2025 7:01 AM EDT HIGH SENSITIVITY TROPONIN IPending Wjahcwuom87/29/2025 12:17 AM EDT POCT GLUCOSE METER UNSOLICITED POQTYGUBguciue51/29/2025 12:16 AM EDT HIGH SENSITIVITY TROPONIN IPending Rescnhves79/28/2025 6:28 PM EDT POCT GLUCOSE METER UNSOLICITED WQZKBFQTozgchp42/28/2025 6:18 PM EDT ECG 12-AEPQRhzvcab90/28/2025 1:41 PM EDT HIGH SENSITIVITY TROPONIN ISTAT11/12/2024 1:34 PM EDT HIGH SENSITIVITY TROPONIN IPending Mrgxlbtfz92/28/2025 10:56 AM EDT POCT GLUCOSE METER UNSOLICITED KUNPQDTJcwstsu17/28/2025 10:55 AM EDT HIGH SENSITIVITY TROPONIN IPending Outsebuqx37/28/2025 6:30 AM EDT BASIC METABOLIC PANELPending Bszdauuac29/28/2025 6:30 AM EDT CBCPending Fewkwwadb77/28/2025 6:30 AM EDT POCT GLUCOSE METER UNSOLICITED OLWWPQDEabpdtc91/28/2025 6:27 AM EDT HIGH SENSITIVITY TROPONIN IPending Gnpefuyqi50/28/2025 12:00 AM EDT POCT GLUCOSE METER UNSOLICITED RUNSEPRZxxlfrs12/27/2025 11:56 PM EDT CTA CHEST W IV FDJHSCNHJVDX20/27/2025 8:55 PM EDT ECG 12-REBVSRVW61/27/2025 6:15 PM EDT HIGH SENSITIVITY TROPONIN IPending Hdjsqhynb96/27/2025 6:14 PM EDT POCT GLUCOSE METER UNSOLICITED TTRDINUZjtswol39/27/2025 5:16 PM EDT C-REACTIVE PROTEINPending Lipmjthtd21/27/2025 3:29 PM EDT POCT GLUCOSE METER UNSOLICITED UQKTDOGHjibfel95/27/2025 12:49 PM EDT SEDIMENTATION RATEAdd-On11/11/2024 6:39 AM EDT BASIC METABOLIC PANELPending Dgysmroie40/27/2025 6:39 AM EDT CBCPending Efnidvpfb02/27/2025 6:39 AM EDT POCT GLUCOSE METER UNSOLICITED IDGEUAJDqwfjmr41/27/2025 6:35 AM EDT POCT GLUCOSE METER UNSOLICITED PZCFXMSZbatupy40/27/2025 12:55 AM EDT HIGH SENSITIVITY TROPONIN IPending Bhpwtnhql31/26/2025 8:50 PM EDT POCT GLUCOSE METER UNSOLICITED LIBVBABHhmnfnx30/26/2025 6:24 PM EDT ECG 12-DLTHYLWI21/26/2025 3:11 PM EDT HIGH SENSITIVITY TROPONIN IPending Hujfdgedu53/26/2025 2:22 PM EDT POCT GLUCOSE METER UNSOLICITED YTUIEZUGnojcpl95/26/2025 1:06 PM EDT LEXISCAN STRESS MYOCARDIAL PERFUSION LBDFKNBAwhjhun64/26/2025 11:23 AM EDT XR CHEST 1 QWUMLekqdsr83/26/2025 9:01 AM EDT ECG 12-LIRGErhysbs64/26/2025 8:09 AM EDT HIGH SENSITIVITY TROPONIN ISTAT11/10/2024 7:44 AM EDT POCT GLUCOSE METER UNSOLICITED NELUYJGKarxydy88/26/2025 7:39 AM EDT POCT GLUCOSE METER UNSOLICITED BUEVLWQNzxicle10/25/2025 9:21 PM EDT POCT GLUCOSE METER UNSOLICITED MMNPPCOJkbxwab76/25/2025 4:12 PM EDT CBC WITH AUTO APINRZORMGABCcwhvdo88/25/2025 2:09 PM EDT MUUCWKJCYQldofae68/25/2025 2:09 PM EDT CBC AND OZWBHHENLZAMQdlagxu86/25/2025 2:09 PM EDT BASIC METABOLIC XVHGYCvxonbt11/25/2025 2:09 PM EDT HIGH SENSITIVITY TROPONIN DNlurycq35/25/2025 2:09 PM EDT ECG 12-NCBXWmzmbka01/25/2025 12:39 PM EDT POCT GLUCOSE METER UNSOLICITED KUDSHECJyppuqr07/23/2025 4:00 PM EDT POCT GLUCOSE METER UNSOLICITED TSSPYWQUquglaj42/23/2025 11:55 AM EDT ECG 12-RZIJXblxisz23/23/2025 11:48 AM EDT POCT GLUCOSE METER UNSOLICITED PBIQIJBFmvdxst10/23/2025 7:43 AM EDT WEFYYSR8911/07/2024 6:27 AM EDT HIGH SENSITIVITY TROPONIN ISTAT Add-on11/07/2024 4:50 AM EDT CALCIUM, WKIFVCFLsiubzq60/23/2025 4:50 AM EDT QUBKFVJQFNYkstfzv89/23/2025 4:50 AM EDT ZVPUVZHUBEkwwauo62/23/2025 4:50 AM EDT BASIC METABOLIC DSXSNXznrsrn36/23/2025 4:50 AM EDT POCT GLUCOSE METER UNSOLICITED FFXQKUBWzjvjsd29/22/2025 10:59 PM EDT POCT GLUCOSE METER UNSOLICITED DAQYKWJGechtaa18/22/2025 8:22 PM EDT POCT GLUCOSE METER UNSOLICITED VSHHSKVMtkfjww34/22/2025 5:05 PM EDT CALCIUM, IONIZEDPending Roukurevz78/22/2025 12:24 PM EDT POCT GLUCOSE METER UNSOLICITED UDXFBGNGryifan15/22/2025 12:19 PM EDT VASC US LOWER EXTREMITY PSEUDOANEURYSM DUPLEX CODJGIauvkqd12/22/2025 8:24 AM EDT POCT GLUCOSE METER UNSOLICITED MSELTJGHoicwpr61/22/2025 7:52 AM EDT CBC WITH AUTO DIFFERENTIALPending Uupmvmguz99/22/2025 5:50 AM EDT CBC AND PMWTJTSNZYTFUchxsan00/22/2025 5:50 AM EDT PHOSPHORUSPending Hjqictckk74/22/2025 5:50 AM EDT MAGNESIUMPending Unelitxxn83/22/2025 5:50 AM EDT BASIC METABOLIC PANELPending Qspouabdl19/22/2025 5:50 AM EDT POCT GLUCOSE METER UNSOLICITED KQPYFCEJpdlpix27/21/2025 10:07 PM EDT POCT GLUCOSE METER UNSOLICITED DOSRTJVRiblafs16/21/2025 4:37 PM EDT POCT GLUCOSE METER UNSOLICITED MCINXPTWvavndv24/21/2025 11:36 AM EDT HEMOGLOBIN AND HEMATOCRIT, BLOODPending Yszptydmm90/21/2025 9:01 AM EDT POCT GLUCOSE METER UNSOLICITED XERXYPLFtpiijg49/21/2025 8:36 AM EDT CBCPending Yjrsfywkj78/21/2025 3:48 AM EDT PHOSPHORUSPending Vvrelvabv99/21/2025 3:48 AM EDT MAGNESIUMPending Sgadfsvpw71/21/2025 3:48 AM EDT BASIC METABOLIC PANELPending Flxowbrih34/21/2025 3:48 AM EDT CALCIUM, IONIZEDPending Gitufybjq49/21/2025 1:00 AM EDT HEMOGLOBIN AND HEMATOCRIT, BLOODPending Aqmkbqqvm64/21/2025 12:54 AM EDT POCT GLUCOSE METER UNSOLICITED ECLDNWOMqwnxec42/20/2025 10:33 PM EDT BASIC METABOLIC PANELSTAT Add-on11/04/2024 8:17 PM EDT HEMOGLOBIN AND HEMATOCRIT, BLOODPending Hekshduct73/20/2025 8:13 PM EDT POCT GLUCOSE METER UNSOLICITED SQDNBZGZhhfsdw79/20/2025 5:12 PM EDT TRANSFUSE RED BLOOD CZXCUQkezlva11/20/2025 2:34 PM EDTECG 12-EQOXMQEV76/20/2025 1:59 PM EDT HEMOGLOBIN AND HEMATOCRIT, BLOODPending Qcovinfsh99/20/2025 1:38 PM EDT BASIC METABOLIC VYQCBNSKG22/20/2025 1:38 PM EDT HIGH SENSITIVITY TROPONIN ISTAT11/04/2024 1:38 PM EDT POCT GLUCOSE METER UNSOLICITED TXLMVSWAgiwtos07/20/2025 1:06 PM EDT CTA ABDOMEN PELVIS W IV MEYPZPIYFbfahym69/20/2025 12:48 PM EDT POCT GLUCOSE METER UNSOLICITED JNXUYSVBljcumi34/20/2025 9:20 AM EDT POCT GLUCOSE METER UNSOLICITED OYSMEARDxmfutn38/20/2025 5:10 AM EDT CBCPending Nstjbrxwr80/20/2025 5:05 AM EDT CALCIUM, IONIZEDPending Jjdswlhou79/20/2025 5:05 AM EDT PHOSPHORUSPending Cegvoimxb74/20/2025 5:05 AM EDT MAGNESIUMPending Zytouiqdq66/20/2025 5:05 AM EDT BASIC METABOLIC PANELPending Aoxqyofpd15/20/2025 5:05 AM EDT POCT GLUCOSE METER UNSOLICITED NHLWLMDVykrdpu44/20/2025 12:12 AM EDT HEMOGLOBIN AND HEMATOCRIT, BLOODPending Uzbnesdwx18/20/2025 12:09 AM EDT POCT GLUCOSE METER UNSOLICITED PAVOXOSYhgyfce98/19/2025 9:52 PM EDT HEMOGLOBIN AND HEMATOCRIT, BLOODPending Gupmavuij26/19/2025 6:34 PM EDT POCT GLUCOSE METER UNSOLICITED QALGIYGZfdlafb36/19/2025 5:35 PM EDT CBCPending Snzrusdbr57/19/2025 1:23 PM EDT POCT GLUCOSE METER UNSOLICITED YZIWUOIWphlbvb75/19/2025 11:35 AM EDT POCT GLUCOSE METER UNSOLICITED UKLHSZWTnzecdy83/19/2025 7:46 AM EDT CBCPending Tgyygjury78/19/2025 4:46 AM EDT CALCIUM, IONIZEDPending Vsrvyonyx29/19/2025 4:46 AM EDT PHOSPHORUSPending Zjbnwstvi13/19/2025 4:46 AM EDT MAGNESIUMPending Jeusborej17/19/2025 4:46 AM EDT BASIC METABOLIC PANELPending Lmdhydneu86/19/2025 4:46 AM EDT INTEM HVkqcozk99/19/2025 1:58 AM EDT HEPTEM GHxdhjit23/19/2025 1:58 AM EDT EXTEM NNyrzvgn87/19/2025 1:58 AM EDT FIBTEM IVnsjlad10/19/2025 1:58 AM EDT ARWLMZO7211/03/2024 12:07 AM EDT HTAEVQVTZKRZNM37/19/2025 12:07 AM EDT BOYOIIJXADYWR35/19/2025 12:07 AM EDT BASIC METABOLIC TWHKVGKBR31/19/2025 12:07 AM EDT OKSCQPJSXAZHAS93/19/2025 12:07 AM EDT PROTIME-GRDMZFG6811/03/2024 12:07 AM EDT POCT GLUCOSE METER UNSOLICITED TXAHLUPOputrmq08/18/2025 10:48 PM EDT TRANSFUSE RED BLOOD ULNQEYfoefkr44/18/2025 9:30 PM EDTTRANSFUSE RED BLOOD CELLS Tqsgscn0011/02/2024 9:10 PM EDTPR AN ELECTIVE ENDOTRACHEAL IYNZBIZlmqnzl83/18/2025 8:56 PM EDT REPAIR, XRZSXHEYQQBLNI45/18/2025 8:44 PM EDT Hematoma Right Groin EXPLORATION, GVZUXSEN44/18/2025 8:44 PM EDT Hematoma Right Groin POCT GLUCOSE METER UNSOLICITED NFNAZIOZqmkavu63/18/2025 8:30 PM EDT PREPARE LCRPhtlqyy97/18/2025 8:05 PM EDT PREPARE WGTOwbgtdl32/18/2025 8:05 PM EDT TYPE AND SCREENPending Ibyabugyp81/18/2025 8:02 PM EDT CBCPending Xehfygsad10/18/2025 8:02 PM EDT RED XONMzrsmlv64/18/2025 8:00 PM EDT EXTRA ODNYSWgtcgsj81/18/2025 8:00 PM EDT ACTIVATED CLOTTING KWYVDuehqlt99/18/2025 4:43 PM EDT POCT ACTIVATED CLOTTING WVTZZbuqzdf05/18/2025 4:40 PM EDT POCT ACTIVATED CLOTTING JKVIPzxhyrq32/18/2025 4:19 PM EDT ACTIVATED CLOTTING NYPLAzeqoqm91/18/2025 4:13 PM EDT ACTIVATED CLOTTING IYLDNzjvsjn79/18/2025 2:56 PM EDT INSTANT WAVE FREE RATIO (IFR)Txdarnw2011/02/2024 2:53 PM EDT Spontaneous dissection of coronary artery ULTRASOUND - PYNFFKIERjkhmjf61/18/2025 2:53 PM EDT Spontaneous dissection of coronary artery CORONARY CGXAILQQBHANdyzdmu13/18/2025 2:53 PM EDT Spontaneous dissection of coronary artery ACTIVATED CLOTTING TJRLSoxzrhl69/18/2025 2:24 PM EDT ECG 12-IBHFOVTB25/18/2025 1:18 PM EDT HIGH SENSITIVITY TROPONIN ISTAT11/02/2024 1:01 PM EDT POCT GLUCOSE METER UNSOLICITED SSLTHFLOqfnidz98/18/2025 11:07 AM EDT POCT GLUCOSE METER UNSOLICITED ULEAZKSKcoaazp93/18/2025 7:31 AM EDT LIGHT GREEN MHJEjwyzgi74/18/2025 6:15 AM EDT EXTRA EBYXBAurjwjw85/18/2025 6:15 AM EDT CBCPending Nvkeykeyh63/18/2025 6:15 AM EDT POCT GLUCOSE METER UNSOLICITED URMDHEGUcwwema64/17/2025 8:42 PM EDT POCT GLUCOSE METER UNSOLICITED LRGAOKDIrjxxnx61/17/2025 6:04 PM EDT ACTIVATED CLOTTING HLTBSlhxoco92/17/2025 4:36 PM EDT POCT ACTIVATED CLOTTING HKVXRornsxs15/17/2025 4:33 PM EDT ULTRASOUND - HBEDIYCPSagnpgj28/17/2025 1:30 PM EDT NSTEMI (non-ST elevated myocardial infarction) (CMS/HCC) CORONARY PLJUXTCIINPJjmkrxl75/17/2025 1:30 PM EDT NSTEMI (non-ST elevated myocardial infarction) (CMS/HCC) ACTIVATED CLOTTING EKEHOilovte54/17/2025 1:27 PM EDT ACTIVATED CLOTTING BMJXHzksyku48/17/2025 1:14 PM EDT ECG 12-UXQIFbmnwfb83/17/2025 12:09 PM EDT POCT GLUCOSE METER UNSOLICITED RELRCTMVlnokiw76/17/2025 11:30 AM EDT BASIC METABOLIC PANELPending Szffekege34/17/2025 10:10 AM EDT JBUBLZM7011/01/2024 10:10 AM EDT POCT GLUCOSE METER UNSOLICITED HLBEMNEKmmqinz13/17/2025 7:43 AM EDT HIGH SENSITIVITY TROPONIN BItyhz9811/01/2024 6:42 AM EDT ANTI-FACTOR XAPending Gfqprvmra90/17/2025 6:04 AM EDT POCT GLUCOSE METER UNSOLICITED ODIABHZCzinyxu13/17/2025 6:02 AM EDT TOXICOLOGY PANEL RUVQGPvbchoz95/17/2025 2:12 AM EDT POCT GLUCOSE METER UNSOLICITED XOYRIPQHnfpndh32/16/2025 8:20 PM EDT LEFT HEART CRQMGdfeswk79/16/2025 7:34 PM EDT NSTEMI (non-ST elevated myocardial infarction) (CMS/HCC) CORONARY VHPRNQWNPRBZzupwxx11/ 7:34 PM EDT NSTEMI (non-ST elevated myocardial infarction) (CMS/HCC) POCT GLUCOSE METER UNSOLICITED KSMPQQFTrzajdh62/16/2025 11:55 AM EDT LIMITED ECHO (TTE) W/ COLOR FLOW AND IMAGING JIBAMZvywtum55/16/2025 11:40 AM EDT ECG 12-QXMCIdxykkq11/16/2025 8:47 AM EDT ECG 12-UCKSTizirnb76/16/2025 8:25 AM EDT POCT GLUCOSE METER UNSOLICITED ARQREKYUikrglz62/16/2025 7:22 AM EDT HEMOGLOBIN P9LLzc-Wu03/16/2025 6:27 AM EDT LIPID PANELAdd-10/31/2024 6:27 AM EDT MAGNESIUMAdd-On10/31/2024 6:27 AM EDT ANTI-FACTOR TEZcjgglm34/16/2025 6:27 AM EDT HZZWujefyv90/16/2025 6:27 AM EDT BASIC METABOLIC RYADSJyizmay75/16/2025 6:27 AM EDT HIGH SENSITIVITY TROPONIN YOavib9810/31/2024 6:27 AM EDT ANTI-FACTOR PRBzfqhvl08/16/2025 1:38 AM EDT HIGH SENSITIVITY TROPONIN WSjvmq8110/31/2024 1:38 AM EDT POCT GLUCOSE METER UNSOLICITED CGVKAIJLegxicu34/15/2025 9:12 PM EDT ECG 12-KWXAHKVN57/15/2025 8:00 PM EDT ANTI-FACTOR XASTAT Add-on10/30/2024 7:11 PM EDT SGMUBMLY85/15/2025 7:11 PM EDT TSH3 REFLEX TO UO3PZTG4210/30/2024 7:11 PM EDT CBC WITH AUTO SYTCXXBUDBCLUVEO83/15/2025 7:11 PM EDT B-TYPE NATRIURETIC ZSCELBXZXZF41/15/2025 7:11 PM EDT CBC AND OQILKQUCYTDPDRPL07/15/2025 7:11 PM EDT PROTIME-SNLGIPA8610/30/2024 7:11 PM EDT YUPNJCLRBPGJAF26/15/2025 7:11 PM EDT HIGH SENSITIVITY TROPONIN ISTAT10/30/2024 7:11 PM EDT JWVMMNZSTEQXW06/15/2025 7:11 PM EDT COMPREHENSIVE METABOLIC WCPHZDFXB91/15/2025 7:11 PM EDT from Last 3 Months Results * Urinalysis microscopic with reflex culture (11/26/2024 8:27 PM EDT)Component ValueRef RangeTest MethodAnalysis TimePerformed AtPathologist SignatureRBC, Urine0-2None Seen, 0-2 /HPF11/26/2024 8:52 PM [facility] WBC, Urine0-2None Seen, 0-2 /HPF11/26/2024 8:52 PM [facility]Squamous Epithelial, UrineNone SeenNone Seen, Occasional, Few /LPF 11/26/2024 8:52 PM [facility]Mucus, UrineOccasionalNone Seen, Occasional, Few /LPF10/01/2025 8:52 PM [facility] Specimen (Source)Anatomical Location / LateralityCollection Method / Volume Collection TimeReceived TimeUrineUrine specimen obtained by clean catch procedure / UnknownNon-blood Collection / Hnqbiwp4911/26/2024 8:27 PM EDT 11/26/2024 8:33 PM EDT Narrative Authorizing ProviderResult TypeResult StatusDustin Jean-Paul ANNIKA URINE ORDERABLES Final ResultPerforming OrganizationAddressCity/State/ZIP CodePhone Number [facility] [address] [place] [address] * (ABNORMAL) Urinalysis with reflex culture (11/26/2024 8:27 PM EDT)Component ValueRef RangeTest MethodAnalysis TimePerformed AtPathologist SignatureColor, UrineDark-Yellow(A)Colorless, Yellow, Light-Ehwqea6111/26/2024 8:52 PM [facility]Clarity, MtwttIocqbQvdkl97/12/2025 8:52 PM [facility]pH, Urine7.05.0 - 8.0 pH11/26/2024 8:52 PM [facility]Leukocytes, UrineTrace(A)Bytkvkrm23/12/2025 8:52 PM EDT [facility]Nitrite, UrinePositive(A)Sfqzxnre90/12/2025 8:52 PM [facility]Protein, UrineNegativeNegative mg/dL11/26/2024 8:52 PM [facility]Glucose, UrineNormalNormal mg/dL 11/26/2024 8:52 PM [facility]Bilirubin, UrineSmall(A) Mcpbddrk76/12/2025 8:52 PM [facility]Specific [place], Urine1.0181.010 - 1.8072711/26/2024 8:52 PM [facility] Ketones, UrineNegativeNegative mg/dL11/26/2024 8:52 PM [facility]Blood, ObdqhHjmvvhfzXckjeytr37/12/2025 8:52 PM [facility]Urobilinogen, Urine4.0(A)Normal mg/dL11/26/2024 8:52 PM [facility]Specimen (Source)Anatomical Location / Laterality Collection Method / VolumeCollection TimeReceived TimeUrineUrine specimen obtained by clean catch procedure / UnknownNon-blood Collection / Unknown 11/26/2024 8:27 PM EDT1 8:33 PM EDT Narrative Authorizing ProviderResult TypeResult StatusDustin Jean-Paulladi ROBLERO URINE ORDERABLES Final ResultPerforming OrganizationAddressCity/State/ZIP CodePhone Number [facility] [address] [place] [address] * Serum Qualitative (11/26/2024 8:27 PM EDT)ComponentValueRef Range Test MethodAnalysis TimePerformed AtPathologist SignaturehCG, SerumNegative 11/26/2024 8:51 PM [facility]Specimen (Source)Anatomical Location / LateralityCollection Method / VolumeCollection TimeReceived Time BloodVenous blood specimen / UnknownExisting Catheter / Kaylwhb4811/26/2024 8:27 PM EDT1 8:33 PM EDT Narrative Authorizing ProviderResult TypeResult StatusDustin Jean-Paulladi ROBLERO BLOOD ORDERABLES Final ResultPerforming OrganizationAddressCity/State/ZIP CodePhone Number [facility]) [address] [place] [address] * XR chest 1 view (11/26/2024 8:17 PM EDT) Only the most recent of3 resultswithin the time period is included. Anatomical RegionLateralityModalityChestComputed RadiographySpecimen (Source) Anatomical Location / LateralityCollection Method / VolumeCollection Time Received Time11/26/2024 8:21 PM EDT Impressions 11/26/2024 8:37 PM EDT * No radiographic evidence of acute cardiopulmonary abnormality. Approved by:Nadine Hdez11/26/2024 8:22 PM. IAILEEN MD,have reviewed the image(s) and agree with [...] cardiopulmonary abnormality. Approved by:Nadine Hdez11/26/2024 8:22 PM. IAILEEN MD,have reviewed the image(s) and agree with the findingsin this report. Electronically signed: AILEEN GRACE MD. Authorizing ProviderResult TypeResult StatusDustin Jean-Paul MDIMG XR PROCEDURESFinal Result * ECG 12 lead (11/26/2024 8:13 PM EDT) Only the most recent of14 resultswithin the time period is included. ComponentValueRef RangeTest MethodAnalysis TimePerformed AtPathologist Signature Ventricular Zzzs27QVVDH MUSEAtrial Yozh18JBXWF MUSEPR Ymwmbmpu137asDO MUSEQRS MJGDVILZ05zqDG MUSEQT Autdvoge219uxLW MUSEQTC CALCULATION(BAZETT)470msGE MUSEP Czby47yanvrjhKJ MUSER-Kmkq73kyvrfifMX MUSET Wave Fgko82hqflabsWB MUSESpecimen (Source)Anatomical Location / LateralityCollection Method / [...] 11/26/2024 8:15:28 PM Authorizing ProviderResult TypeResult StatusDustin Jean-Paulladi PATELG ORDERABLESFinal ResultPerforming OrganizationAddressCity/State/ZIP CodePhone Number [facility] * HS Troponin I (11/26/2024 8:05 PM EDT) Only the most recent of21 resultswithin the time period is included. ComponentValueRef RangeTest MethodAnalysis TimePerformed AtPathologist Signature High Sensitivity Troponin I<2<15 ng/L1 8:42 PM [facility]Specimen (Source)Anatomical Location / LateralityCollection Method / VolumeCollection TimeReceived TimeBloodVenous blood specimen / UnknownExisting Catheter / Nobxfdv9811/26/2024 8:05 PM EDT1 8:13 PM EDT Narrative Authorizing ProviderResult TypeResult StatusDustin Jean-Paulladi ROBLERO BLOOD ORDERABLES Final ResultPerforming OrganizationAddressCity/State/ZIP CodePhone Number [facility] [address] [place] [address] * (ABNORMAL) CBC auto differential (11/26/2024 8:05 PM EDT) Only the most recent of4 resultswithin the time period is included. ComponentValueRef RangeTest MethodAnalysis TimePerformed AtPathologist Signature Auto WBC5.234.00 - 10.60 10*3/uL11/26/2024 8:18 PM [facility] RBC3.37(L)3.80 - 5.00 10*6/uL11/26/2024 8:18 PM [facility] Hemoglobin9.9(L)12.0 - 15.0 g/dL10/01/2025 8:18 PM [facility] Pjrhfyvpid03.9(L)36.0 - 45.0 %11/26/2024 8:18 PM [facility] MCV88.782.0 - 98.0 fL11/26/2024 8:18 PM [facility])MCH29.427.0 - 33.0 pg11/26/2024 8:18 PM [facility])MCHC33.132.0 - 35.0 g/dL11/26/2024 8:18 PM [facility])RDW14.011.5 - 15.0 % 11/26/2024 8:18 PM [facility]Neutrophils %44.540.0 - 72.0 % 11/26/2024 8:18 PM [facility]Lymphocytes %40.520.0 - 45.0 % 11/26/2024 8:18 PM [facility]Monocytes %10.95.0 - 12.0 % 11/26/2024 8:18 PM [facility]Eosinophils %3.10.0 - 6.0 % 11/26/2024 8:18 PM [facility]Basophils %0.80.0 - 1.0 % 11/26/2024 8:18 PM [facility])Neutrophils Absolute2.331.60 - 7.60 10*3/uL11/26/2024 8:18 PM [facility]Lymphocytes Absolute 2.121.20 - 4.00 10*3/uL11/26/2024 8:18 PM [facility]Monocytes Absolute0.570.10 - 1.00 10*3/uL11/26/2024 8:18 PM [facility] Eosinophils Absolute0.160.00 - 0.50 10*3/uL11/26/2024 8:18 PM [facility]Basophils Absolute0.040.00 - 0.20 10*3/uL11/26/2024 8:18 PM [facility])Byanyvfhv063166 - 400 10*3/uL11/26/2024 8:18 PM [facility]nRBC %0.00 %11/26/2024 8:18 PM [facility]Immature Granulocytes %0.20.0 - 1.0 %11/26/2024 8:18 PM [facility])Immature Granulocytes Absolute0.010.00 - 0.20 10*3/uL11/26/2024 8:18 PM [facility])Specimen (Source)Anatomical Location / LateralityCollection Method / VolumeCollection TimeReceived TimeBloodVenous blood specimen / UnknownExisting Catheter / Reihjzz1011/26/2024 8:05 PM EDT 11/26/2024 8:13 PM EDT Narrative Authorizing ProviderResult TypeResult StatusDustin Jean-Paulladi ROBLERO BLOOD ORDERABLES Final ResultPerforming OrganizationAddressCity/State/ZIP CodePhone Number [facility]) [address] [place] [address] * Lipase (11/26/2024 8:05 PM EDT)ComponentValueRef RangeTest MethodAnalysis Time Performed AtPathologist KlxuqisufNdxpou6235 - 82 U/L1 8:36 PM [facility])Specimen (Source)Anatomical Location / Laterality Collection Method / VolumeCollection TimeReceived TimeBloodVenous blood specimen / UnknownExisting Catheter / Hnkkwch1611/26/2024 8:05 PM EDT1 8:13 PM EDT Narrative Authorizing ProviderResult TypeResult StatusDustin Jean-Paulladi ROBLERO BLOOD ORDERABLES Final ResultPerforming OrganizationAddressCity/State/ZIP CodePhone Number [facility]) [address] [place] [address] * (ABNORMAL) Comprehensive metabolic panel (11/26/2024 8:05 PM EDT) Only the most recent of2 resultswithin the time period is included. ComponentValueRef RangeTest MethodAnalysis TimePerformed AtPathologist Signature Jvvfvl918947 - 145 mmol/L1 8:36 PM [facility] Potassium3.73.5 - 5.1 mmol/L1 8:36 PM [facility] Pvjomgww914(H)98 - 107 mmol/L1 8:36 PM [facility]CO2 2221 - 31 mmol/L1 8:36 PM [facility]Anion Gap97 - 20 mmol/L1 8:36 PM [facility]BUN97 - 25 mg/dL11/26/2024 8:36 PM [facility]Creatinine0.59(L)0.60 - 1.20 mg/dL 11/26/2024 8:36 PM [facility]BUN/Creatinine Ratio15.3 11/26/2024 8:36 PM [facility])Kjiesfa8178 - 100 mg/dL 11/26/2024 8:36 PM [facility]Calcium7.4(L)8.6 - 10.3 mg/dL 11/26/2024 8:36 PM [facility])XER8849 - 39 U/L1 8:36 PM [facility]ALT (SGPT)127 - 52 U/L1 8:36 PM [facility]Alkaline Kfmowwdalvz8858 - 104 U/L1 8:36 PM [facility]Total Protein5.6(L)6.0 - 8.3 g/dL11/26/2024 8:36 PM [facility]Albumin3.63.5 - 5.7 g/dL11/26/2024 8:36 PM [facility]Total Bilirubin0.2(L)0.3 - 1.0 mg/dL11/26/2024 8:36 PM EDT [facility])dKJK560.5>60.0 mL/min/1.73m* 8:36 PM EDT [facility]Comment:[facility]???s estimated glomerular filtration rate (eGFR) will no [...] EDT Narrative Authorizing ProviderResult TypeResult StatusDustin Jean-Paul MDCECY BLOOD ORDERABLES Final ResultPerforming OrganizationAddressCity/State/ZIP CodePhone Number [facility] [address] [place] [address] * (ABNORMAL) CBC (11/17/2024 5:17 AM EDT) Only the most recent of15 resultswithin the time period is included. ComponentValueRef RangeTest MethodAnalysis TimePerformed AtPathologist Signature Auto WBC2.92(L)4.00 - 10.60 10*3/uL11/17/2024 5:40 AM [facility]RBC2.88(L)3.80 - 5.00 10*6/uL11/17/2024 5:40 AM [facility]Hemoglobin8.5(L)12.0 - 15.0 g/dL11/17/2024 5:40 AM [facility]Piclfhuzyl35.9(L)36.0 - 45.0 %11/17/2024 5:40 AM [facility]MCV89.982.0 - 98.0 fL10/04/2024 5:40 AM [facility])MCH 29.527.0 - 33.0 pg11/17/2024 5:40 AM [facility])MCHC32.832.0 - 35.0 g/dL11/17/2024 5:40 AM [facility])RDW14.611.5 - 15.0 % 11/17/2024 5:40 AM [facility])Byxsnnvai977116 - 400 10*3/uL 11/17/2024 5:40 AM [facility]Specimen (Source)Anatomical Location / LateralityCollection Method / VolumeCollection TimeReceived TimeBlood Venous blood specimen / UnknownExisting Catheter / Qcftsfk1911/17/2024 5:17 AM EDT 11/17/2024 5:25 AM EDT Narrative Authorizing ProviderResult TypeResult StatusSandeep ROBLERO BLOOD ORDERABLES Final ResultPerforming OrganizationAddressCity/State/ZIP CodePhone Number [facility]) [address] [place] [address] * Magnesium (11/17/2024 5:17 AM EDT) Only the most recent of10 resultswithin the time period is included. ComponentValueRef RangeTest MethodAnalysis TimePerformed AtPathologist Signature Magnesium1.91.9 - 2.7 mg/dL11/17/2024 7:00 AM [facility]) Specimen (Source)Anatomical Location / LateralityCollection Method / Volume Collection TimeReceived TimeBloodVenous blood specimen / UnknownExisting Catheter / Pyjzdib7311/17/2024 5:17 AM EDT1 5:24 AM EDT Narrative Authorizing ProviderResult TypeResult StatusSandeep ROBLERO BLOOD ORDERABLES Final ResultPerforming OrganizationAddressCity/State/ZIP CodePhone Number [facility]) [address] [place] [address] * (ABNORMAL) Hepatic function panel (11/17/2024 5:17 AM EDT) Only the most recent of2 resultswithin the time period is included. ComponentValueRef RangeTest MethodAnalysis TimePerformed AtPathologist Signature Total Bilirubin0.30.3 - 1.0 mg/dL11/17/2024 8:50 AM [facility]Bilirubin, Direct0.00 - 0.2 mg/dL11/17/2024 8:50 AM [facility]Alkaline Bqxvymvcncy1327 - 104 U/L1 8:50 AM [facility]VAU2017 - 39 U/L1 8:50 AM [facility]ALT (SGPT)117 - 52 U/L1 8:50 AM [facility]Total Protein 5.2(L)6.0 - 8.3 g/dL11/17/2024 8:50 AM [facility]Albumin3.2 (L)3.5 - 5.7 g/dL11/17/2024 8:50 AM [facility]Specimen (Source)Anatomical Location / LateralityCollection Method / VolumeCollection TimeReceived TimeBloodVenous blood specimen / UnknownExisting Catheter / Unknown 11/17/2024 5:17 AM EDT1 5:24 AM EDT Narrative Authorizing ProviderResult TypeResult StatusArabella Patel [facility] BLOOD ORDERABLESFinal ResultPerforming OrganizationAddressCity/State/ZIP CodePhone Number [facility] [address] [place] [address] * (ABNORMAL) Basic metabolic panel (11/17/2024 5:17 AM EDT) Only the most recent of16 resultswithin the time period is included. ComponentValueRef RangeTest MethodAnalysis TimePerformed AtPathologist Signature Acjmnr846708 - 145 mmol/L1 7:00 AM [facility] Potassium3.63.5 - 5.1 mmol/L1 7:00 AM [facility] Ejdpmgbf577(H)98 - 107 mmol/L1 7:00 AM [facility]CO2 2521 - 31 mmol/L1 7:00 AM [facility]OHY827 - 25 mg/dL11/17/2024 7:00 AM [facility]Creatinine0.720.60 - 1.20 mg/dL11/17/2024 7:00 AM [facility]Ihtjazl7989 - 100 mg/dL 11/17/2024 7:00 AM [facility]Calcium8.0(L)8.6 - 10.3 mg/dL 11/17/2024 7:00 AM [facility]Anion Rpo135 - 20 mmol/L 11/17/2024 7:00 AM [facility]kGKE383.8>60.0 mL/min/1.73m*2 11/17/2024 7:00 AM [facility]Comment:[facility]???s estimated glomerular filtration rate (eGFR) will no [...] group of individuals. BUN/Creatinine Ratio13.91 7:00 AM [facility])Specimen (Source)Anatomical Location / LateralityCollection Method / VolumeCollection TimeReceived TimeBloodVenous blood specimen / UnknownExisting Catheter / Unknown 11/17/2024 5:17 AM EDT1 5:24 AM EDT Narrative Authorizing ProviderResult TypeResult StatusOmar Carmela ROBLERO BLOOD ORDERABLES Final ResultPerforming OrganizationAddressCity/State/ZIP CodePhone Number [facility] [address] [place] [address] * MR abdomen wo contrast MRCP (11/16/2024 [...] ComponentValueRef RangeTest MethodAnalysis TimePerformed AtPathologist Signature Glucose [id number] - 105 mg/dL11/13/2024 11:26 [facility] Comment:[id number] (Source)Anatomical Location / LateralityCollection Method / VolumeCollection TimeReceived TimeBloodCapillary blood specimen / Gozwpid2511/13/2024 11:08 AM EDT11/13/2024 11:26 AM EDT Narrative [facility] - 11/13/2024 11:26 AM EDT Waived Testing in the ED is performed under the ED CLIA certificate #[id number]. Authorizing ProviderResult TypeResult StatusMarky Tavares [facility] BLOOD ORDERABLESFinal ResultPerforming OrganizationAddressCity/State/ZIP CodePhone Number [facility] [address] [place] [address] * CTA Chest W IV Contrast (11/11/2024 [...] or other acute intrathoracic process. Approved by:Claus Mello/ 9:16 PM. I, Rebecca Solano,have reviewed the image(s) and agree with the findingsin this report. Electronically signed: Rebecca Solano. Authorizing ProviderResult TypeResult StatusMarky Tavares MDIMG CT PROCEDURES Final Result * (ABNORMAL) C-reactive protein (11/11/2024 3:29 PM EDT)ComponentValueRef Range Test MethodAnalysis TimePerformed AtPathologist JcwjkxideGSX49.4(H)<=5.0 mg/L 11/13/2024 10:24 AM [facility]Comment:Testing performed using a new methodology, turbidimetry. Normal ranges have been updated. Old normal range was <8 mg/L.Specimen (Source)Anatomical Location / Laterality Collection Method / VolumeCollection TimeReceived TimeBloodVenous blood specimen / UnknownExisting Catheter / Kpguqyl6111/11/2024 3:29 PM EDT11/11/2024 3:42 PM EDT Narrative Authorizing ProviderResult TypeResult StatusJonelle Harrison [facility] BLOOD ORDERABLESFinal ResultPerforming OrganizationAddressCity/State/ZIP CodePhone Number [facility] [address] [place] [address] * (ABNORMAL) Sedimentation rate (11/11/2024 6:39 AM EDT)ComponentValueRef Range Test MethodAnalysis TimePerformed AtPathologist SignatureSed Rate20(H)<20 mm/hr11/11/2024 12:20 PM [facility]Specimen (Source) Anatomical Location / LateralityCollection Method / VolumeCollection Time Received TimeBloodVenous blood specimen / UnknownExisting Catheter / Unknown 11/11/2024 6:39 AM EDT11/11/2024 6:43 AM EDT Narrative Authorizing ProviderResult TypeResult StatusJonelle Harrison [facility] BLOOD ORDERABLESFinal ResultPerforming OrganizationAddressCity/State/ZIP CodePhone Number [facility] [address] [place] [address] * LEXISCAN STRESS MYOCARDIAL PERFUSION IMAGING (11/10/2024 11:23 AM EDT) Anatomical RegionLateralityModalityOtherSpecimen (Source)Anatomical Location / LateralityCollection Method / VolumeCollection TimeReceived Time11/10/2024 11:14 AM EDT Addenda Addendum by Mitul Moya MD on 11/10/2024 4:35 PM EDT 1 1 [facility] [address] [place] [address] [phone] (fax) [facility] Stress Myocardial Perfusion [facility]- [facility] Name: JUAN GARCIA Study Date: 11/10/2024 11:14 AM B/P: / HR: Date of : 1990 Location: [facility] Height: 65 in. Age: 34 [...] Lexiscan Exercise Time: 03:02 Device: Treadmill HR Mesa Used: 21.00 % HR Recovery: 2 bpm Frequent VE: 1 VE/min Resolution: Persisted Max HR: 98 bpm Target HR: 157 bpm Achieved: No Resting HR: 68 bpm Max Predicted HR: 185 bpm Achv. of Max Predicted: 52 % BP Max: 105/71 BP at Rest: 105/71 Max RPP: 81598 mmHg*bpm Max ST Lead: III Max ST Phase: Infusion Stage No. in Phase: [address] Stage: INFUS2:[address] Amplitude: -0.[address] [place]: -0.670 mV/s Max ST Time in Phase: [...] 1.00 mets 67 bpm 105/71 0.250 mm CLFWM0BGP 00:30 1.00 mets 90 bpm 102/70 0.400 [...] 4 - Aneurysmal Procedure Staff Reading Group: [facility] Referring Physician: BRITT ALAS Stress Kindergartners Helper: Al[place]son [place] ??Metal Mixer: Lauren Sanchez ??Ordering Physician: BACILIO PEÑA ??Advanced Practitioner: CRISTINA Gibson ??Nurse: Evelyne Abrams ?? Narrative 11/10/2024 4:35 PM EDT 1 1 [facility] Heart Station [address] [place] [address] [phone] (fax) [facility] Stress Myocardial Perfusion [facility]- [facility] Name: JUAN GARCIA Study Date: 11/10/2024 11:14 AM B/P: / HR: Date of : 1990 Location: [facility] Height: 65 in. Age: 34 [...] Lexiscan Exercise Time: 03:02 Device: Treadmill HR Mesa Used: 21.00 % HR Recovery: 2 bpm Frequent VE: 1 VE/min Resolution: Persisted Max HR: 98 bpm Target HR: 157 bpm ?? Achieved: No Resting HR: 68 bpm Max Predicted HR: 185 bpm Achv. of Max Predicted: 52 % BP Max: 105/71 BP at Rest: 105/71 Max RPP: 60900 mmHg*bpm Max ST Lead: III Max ST Phase: Infusion Stage No. in Phase: [address] Stage: INFUS2:[address] Amplitude: -0.[address] [place]: -0.670 mV/s Max ST Time in Phase: [...] 1.00 mets 67 bpm 105/71 0.250 mm YFKAQ6IWI 00:30 1.00 mets 90 bpm 102/70 0.400 [...] 4 - Aneurysmal Procedure Staff Reading Group: [facility] Referring Physician: BRITT ALAS ??Stress Kindergartners Helper: [place] ??Metal Mixer: Lauren Sanchez Ordering Physician: BACILIO PEÑA ??Advanced Practitioner: CRISTINA Gibson ??Nurse: Evelyne Abrams ?? Resting Perfusion Procedure Note Mitul Moya MD - 11/10/2024 1 1 [facility] Heart Station [address] [place] [address] [phone] (fax) [facility] Stress Myocardial Perfusion [facility]- [facility] Name: JUAN GARCIA Study Date: 11/10/2024 11:14 AM B/P: / HR: Date of : 1990 Location: [facility] Height: 65 in. Age: 34 [...] Lexiscan Exercise Time: 03:02 Device: Treadmill HR Mesa Used: 21.00 % HR Recovery: 2 bpm Frequent VE: 1 VE/min Resolution: Persisted Max HR: 98 bpm Target HR: 157 bpm Achieved: No Resting HR: 68 bpm Max Predicted HR: 185 bpm Achv. of Max Predicted: 52 % BP Max: 105/71 BP at Rest: 105/71 Max RPP: 96943 mmHg*bpm Max ST Lead: III Max ST Phase: Infusion Stage No. in Phase: [address] Stage: INFUS2:[address] Amplitude: -0.[address] [place]: -0.670 mV/s Max ST Time in Phase: [...] 1.00 mets 67 bpm 105/71 0.250 mm HMYYR2KHV 00:30 1.00 mets 90 bpm 102/70 0.400 [...] 4 - Aneurysmal Procedure Staff Reading Group: [facility] Referring Physician: BRITT ALAS Stress Kinder[employer] Helper: [place]son [place] Metal Mixer: Lauren Sanchez Ordering Physician: BACILIO PEÑA Advanced Practitioner: CRISTINA Gibson Nurse: Evelyne Abrams Resting Perfusion Authorizing ProviderResult TypeResult Curt Peña MDCV STRESS PROCEDURES Edited Result - Final * Phosphorus (11/07/2024 4:50 AM EDT) Only the most recent of7 resultswithin the time period is included. ComponentValueRef RangeTest MethodAnalysis TimePerformed AtPathologist Signature Phosphorus4.72.5 - 5.0 mg/dL11/07/2024 5:52 AM [facility] Specimen (Source)Anatomical Location / LateralityCollection Method / Volume Collection TimeReceived TimeBloodVenous blood specimen / UnknownExisting Catheter / Dmqxhyg5011/07/2024 4:50 AM EDT11/07/2024 5:24 AM EDT Narrative Authorizing ProviderResult TypeResult StatusRosa Willoughby PA-CLAB BLOOD ORDERABLESFinal ResultPerforming OrganizationAddressCity/State/ZIP CodePhone Number [facility] ([facility]) [address] [place] [address] * Calcium, ionized (11/07/2024 4:50 AM EDT) Only the most recent of5 resultswithin the time period is included. ComponentValueRef RangeTest MethodAnalysis TimePerformed AtPathologist Signature Calcium, Ion1.161.15 - 1.33 mmol/L11/07/2024 5:43 AM [facility] Specimen (Source)Anatomical Location / LateralityCollection Method / Volume Collection TimeReceived TimeBloodVenous blood specimen / UnknownExisting Catheter / Mibwlko3111/07/2024 4:50 AM EDT11/07/2024 5:38 AM EDT Narrative Authorizing ProviderResult TypeResult StatusEduarda Bravo PA-CLAB BLOOD ORDERABLES Final ResultPerforming OrganizationAddressCity/State/ZIP CodePhone Number [facility] [address] [place] [address], [place] * Vasc Us Lower Extremity Pseudoaneurysm [...] Signature Hemoglobin9.4(L)12.0 - 15.0 g/dL11/05/2024 9:24 AM [facility]) Lxefwsbvmi38.5(L)36.0 - 45.0 %11/05/2024 9:24 AM [facility] Specimen (Source)Anatomical Location / LateralityCollection Method / Volume Collection TimeReceived TimeBloodVenous blood specimen / UnknownExisting Catheter / Ogjcnhn3511/05/2024 9:01 AM EDT11/05/2024 9:09 AM EDT Narrative Authorizing ProviderResult TypeResult Fab ROBLERO BLOOD ORDERABLESFinal ResultPerforming OrganizationAddressCity/State/ZIP CodePhone Number [facility] ([facility] [address] [place] [address] * Transfuse RBC (11/04/2024 4:57 PM EDT) [...] Electronically signed: Raegan Quinn. Authorizing ProviderResult TypeResult StatusKellilyn [facility] PROCEDURES Final Result * HEPTEM C (11/03/2024 1:58 AM EDT)ComponentValueRef RangeTest MethodAnalysis TimePerformed AtPathologist SignatureHEPTEM C CLOTTING [id number] - 215 s 11/03/2024 1:58 AM [facility] THERAPYHEPTEM C AMPLITUDE 5 KTC2217 - 51 mm11/03/2024 1:58 AM [facility] THERAPYHEPTEM C AMPLITUDE 10 MIN56 44 - 61 mm11/03/2024 1:58 AM [facility] THERAPYHEPTEM C AMPLITUDE 20 XVN6685 - 67 mm11/03/2024 1:58 AM [facility] RESPIR[facility] THERAPYHEPTEM C MAXIMUM CLOT DNCSKKNJ6572 - 69 mm11/03/2024 1:58 AM [facility] Specimen (Source)Anatomical Location / LateralityCollection Method / Volume Collection TimeReceived IhczOowhg65/19/2025 1:58 AM EDT11/03/2024 1:58 AM EDT Narrative Authorizing ProviderResult TypeResult StatusKy ROBLERO BLOOD ORDERABLESFinal ResultPerforming OrganizationAddressCity/State/ZIP CodePhone Number [facility] [address] [place] [address], * FIBTEM C (11/03/2024 1:58 AM EDT)ComponentValueRef RangeTest MethodAnalysis TimePerformed AtPathologist SignatureFIBTEM C AMPLITUDE 5 PAZ408 - 16 mm 11/03/2024 1:58 AM [facility] THERAPYFIBTEM C AMPLITUDE 10 QLS733 - 17 mm11/03/2024 1:58 AM [facility] THERAPYFIBTEM C AMPLITUDE 20 MIN14 6 - 18 mm11/03/2024 1:58 AM [facility] THERAPYFIBTEM C MAXIMUM CLOT GWWESATD082 - 19 mm11/03/2024 1:58 AM [facility]ORY THERAPYSpecimen (Source)Anatomical Location / LateralityCollection Method / VolumeCollection TimeReceived PkhsJdqem42/19/2025 1:58 AM EDT11/03/2024 1:58 AM EDT Narrative Authorizing ProviderResult TypeResult StatusKy RBOLERO BLOOD ORDERABLESFinal ResultPerforming OrganizationAddressCity/State/ZIP CodePhone Number [facility] [address] [place] [address], [place] * (ABNORMAL) EXTEM C (11/03/2024 1:58 AM EDT)ComponentValueRef RangeTest Method Analysis TimePerformed AtPathologist SignatureEXTEM C CLOTTING [id number] - 73 s 11/03/2024 1:58 AM [facility] THER[facility]EXTEM C AMPLITUDE 5 HCG0625 - 52 mm11/03/2024 1:58 AM EDTNOR[facility] RESPIRATORY THERAPYEXTEM C AMPLITUDE 10 QRL1555 - 62 mm11/03/2024 1:58 AM [facility] THERAP[facility]EXTEM C AMPLITUDE 20 MIN67 54 - 69 mm11/03/2024 1:58 AM [facility] THERAPYEXTEM C MAXIMUM CLOT YVYSIIBF6631 - 72 mm11/03/2024 1:58 AM [facility] THERAPYEXTEM C LYSIS INDEX 60 EUD3946 - 100 %11/03/2024 1:58 AM [facility] EXTEM C MAXIMUM LYSIS10(H)0 - 6 %11/03/2024 1:58 AM [facility] THERAPYComment:ME^Preliminary ResultSpecimen (Source)Anatomical Location / LateralityCollection Method / VolumeCollection TimeReceived TimeBlood 11/03/2024 1:58 AM EDT11/03/2024 1:58 AM EDT Narrative Authorizing ProviderResult TypeResult StatusKy ROBLERO BLOOD ORDERABLESFinal ResultPerforming OrganizationAddressCity/State/ZIP CodePhone Number [facility] [address] [place] [address], * (ABNORMAL) INTEM C (11/03/2024 1:58 AM EDT)ComponentValueRef RangeTest Method Analysis TimePerformed AtPathologist SignatureINTEM C CLOTTING [id number] - 205 s011/03/2024 1:58 AM EDTNOR[facility] RESPIRATORY THERAPYINTEM C AMPLITUDE 5 JFF1667 - 54 mm11/03/2024 1:58 AM EDTNOR[facility] RESPIRATORY THERAPYINTEM C AMPLITUDE 10 MIN 5746 - 63 mm11/03/2024 1:58 AM [facility] THERAPYINTEM C AMPLITUDE 20 QMC6412 - 68 mm11/03/2024 1:58 AM [facility] THERAPYINTEM C MAXIMUM CLOT REVKJLKL2197 - 70 mm11/03/2024 1:58 AM [facility] THERAPYINTEM C LYSIS INDEX 60 YMP6008 - 100 %11/03/2024 1:58 AM [facility] INTEM C MAXIMUM LYSIS12(H)0 - 7 %11/03/2024 1:58 AM [facility] THERAPYComment:ME^Preliminary ResultSpecimen (Source)Anatomical Location / LateralityCollection Method / VolumeCollection TimeReceived TimeBlood 11/03/2024 1:58 AM EDT11/03/2024 1:58 AM EDT Narrative Authorizing ProviderResult TypeResult StatusKy Barbour MDLAB BLOOD ORDERABLESFinal ResultPerforming OrganizationAddressCity/State/ZIP CodePhone Number [facility] [address] [place] [address], * (ABNORMAL) Protime-INR (11/03/2024 12:07 AM EDT) Only the most recent of2 resultswithin the time period is included. ComponentValueRef RangeTest MethodAnalysis TimePerformed AtPathologist Signature Yjbylpr57.9(H)12.3 - 14.8 Omkcpsb7411/03/2024 12:53 AM [facility] ([place])INR1.17(H)0.90 - 1.10011/03/2024 12:53 AM [facility] ([place]) Comment: [facility] RECOMMENDED INR FOR WARFARIN THERAPY [...] TimeBloodVenous blood specimen / UnknownExisting Catheter / Rdjdtgd3811/03/2024 12:07 AM EDT11/03/2024 12:27 AM EDT Narrative Authorizing ProviderResult TypeResult StatusDavance ROBLERO BLOOD ORDERABLES Final ResultPerforming OrganizationAddressCity/State/ZIP CodePhone Number [facility]) [address] [place] [address] * Fibrinogen (11/03/2024 12:07 AM EDT)ComponentValueRef RangeTest MethodAnalysis TimePerformed AtPathologist KsytltsjcMpbttxjtvo312304 - 425 mg/dL11/03/2024 12:53 AM [facility]TAL[facility] ([place])Specimen (Source)Anatomical Location / LateralityCollection Method / VolumeCollection TimeReceived TimeBloodVenous blood specimen / UnknownExisting Catheter / Zupujtl2211/03/2024 12:07 AM EDT 11/03/2024 12:27 AM EDT Narrative Authorizing ProviderResult TypeResult StatusDavijose ROBLERO BLOOD ORDERABLES Final ResultPerforming OrganizationAddressCity/State/ZIP CodePhone Number [facility] JAZMINE) [address] [place] [address] * ME AN ELECTIVE ENDOTRACHEAL AIRWAY (11/02/2024 8:56 PM EDT) Tarik Dave CAA - 11/02/2024 8:56 PM EDT [place] Nair 11/02/2024 9:06 PM Airway Date/Time: 11/02/2024 8:56 PM Reason: elective Airway not difficult General Information and Staff Patient location during procedure: [place] Anesthesiologist: David Reyes MD Resident/[facility]/CAA: [place] Nair Performed: resident/[facility] [place] [place] Patient Condition Indications for airway management: anesthesia [...] ComponentValueRef RangeTest MethodAnalysis TimePerformed AtPathologist Signature PRODUCT [id number] BLOOD BANKUnit [id number] BLOOD BANKUnit [facility] BLOOD BANKUnit RhPOSNOR[facility]LEA [facility] BLOOD BANKCrossmatch InterpretationCOMSANTA ANA [facility]ALTH [facility]ENTER BLOOD BANKDispense StatusTRNOR-LEA [facility]OSP[facility] BLOOD BANKBlood Expiration [id number] BLOOD BANKProduct Blood Ukzj2830BGQK BLOOD BANKUnit Tpnbap687EEAEVF BLOOD BANK Specimen (Source)Anatomical Location / LateralityCollection Method / Volume Collection TimeReceived StzxRgdmt92/18/2025 8:05 PM EDT Narrative Authorizing ProviderResult TypeResult StatusJill Suarez-Bukowiec MDBLOOD BANK PRODUCT ORDERABLESFinal ResultPerforming OrganizationAddressCity/State/ZIP Code Phone Number [facility] BLOOD BANK * Type and screen (11/02/2024 8:02 PM EDT)ComponentValueRef RangeTest Method Analysis TimePerformed AtPathologist SignatureABO ZdtlqdniR63/18/2025 8:42 PM [facility] BLOOD BANKRh BvnnTPL4011/02/2024 8:42 PM ED[facility] BLOOD BANKAb ScrnNEG 11/02/2024 8:42 PM [facility] BLOOD BANKSpecimen (Source)Anatomical Location / LateralityCollection Method / VolumeCollection TimeReceived TimeBloodVenous blood specimen / UnknownExisting Catheter / Ylfaupl7711/02/2024 8:02 PM EDT 11/02/2024 8:02 PM EDT Narrative Authorizing ProviderResult TypeResult StatusChrainer Collins [facility] BLOOD BANK TEST ORDERABLESFinal ResultPerforming OrganizationAddressCity/State/ZIP Code Phone Number [facility] BLOOD BANK * Red Top (11/02/2024 8:00 PM EDT)ComponentValueRef RangeTest MethodAnalysis TimePerformed AtPathologist SignatureExtra TubeHold for add-ons.11/02/2024 10:02 PM [facility] ([place])Comment:Auto resulted.Specimen (Source) Anatomical Location / LateralityCollection Method / VolumeCollection Time Received TimeBloodVenous blood specimen / Crvdcqq8111/02/2024 8:00 PM EDT 11/02/2024 8:19 PM EDT Narrative Authorizing ProviderResult TypeResult StatusKy Barbour [facility] BLOOD ORDERABLESFinal ResultPerforming OrganizationAddressCity/State/ZIP CodePhone Number [facility] ([facility]) [address] [place] [address] * (ABNORMAL) Activated clotting time (11/02/2024 4:43 PM EDT) Only the most recent of7 resultswithin the time period is included. ComponentValueRef RangeTest MethodAnalysis TimePerformed AtPathologist Signature Activated Clotting Ucyf232(H)82 - 152 s011/02/2024 5:54 PM [facility] ([place])Specimen (Source)Anatomical Location / LateralityCollection Method / VolumeCollection TimeReceived TimeBloodVenous blood specimen / Slnlxqr0011/02/2024 4:43 PM EDT11/02/2024 5:54 PM EDT Narrative Authorizing ProviderResult TypeResult StatusKarlosb Mary Jane Barbour MDLAB POINT OF CARE TEST DOCKED DEVICE UNSOLICITED RESULTSFinal ResultPerforming OrganizationAddress City/State/ZIP CodePhone Number [facility] ([facility]) [address] [place] [address] * (ABNORMAL) POCT activated clotting time manually resulted (11/02/2024 4:40 PM EDT) Only the most recent of2 resultswithin the time period is included. ComponentValueRef RangeTest MethodAnalysis TimePerformed AtPathologist Signature Activated Clotting Time ZCX473(A)82 - 152 secSpecimen (Source)Anatomical Location / LateralityCollection Method / VolumeCollection TimeReceived TimeBlood Venous blood specimen / Rsftbkr4311/02/2024 4:40 PM EDT Narrative Authorizing ProviderResult TypeResult StatusKy Barbour MDPOINT OF CARE TEST ENTER/EDIT ORDERABLESFinal Result [...] infiltrated over the right femoral artery. ??A 6-Egyptian sheath was placed in right femoral artery. ?? Coronary angiography was performed with a JL4 and then repeated after IC nitroglycerin 50 mcg x 2. At this time, it was apparent that the LAD had a moderate stenosis and IVUS and iFR were performed. ??Heparin anticoagulation was used for this procedure. ACT was maintained at >250 seconds. A 6 Egyptian xb3 was engaged to the [place]. I [...] artery [I25.42] Unstable angina Authorizing ProviderResult TypeResult StatusCaleb Mary Jane Barbour [facility] CARDIAC CATH PROCEDURESFinal Result * Light Green Top (11/02/2024 6:15 AM EDT)ComponentValueRef RangeTest Method Analysis TimePerformed AtPathologist SignatureExtra TubeHold for add-ons. 11/02/2024 8:01 AM [facility] ([place])Comment:Auto resulted.Specimen (Source)Anatomical Location / LateralityCollection Method / VolumeCollection TimeReceived TimeBloodVenous blood specimen / UnknownExisting Catheter / Ynpgkwz9811/02/2024 6:15 AM EDT11/02/2024 6:38 AM EDT Narrative Authorizing ProviderResult TypeResult StatusCaleb Mary Jane ROBLERO BLOOD ORDERABLESFinal ResultPerforming OrganizationAddressCity/State/ZIP CodePhone Number [facility] ([facility]) [address] [place] [address] * (ABNORMAL) POCT activated clotting time docked device (11/01/2024 4:33 PM EDT) ComponentValueRef RangeTest MethodAnalysis TimePerformed AtPathologist SignatureActivated Clotting Time FHC321(A)82 - 152 [facility] ([place])Specimen (Source)Anatomical Location / LateralityCollection Method / VolumeCollection TimeReceived EoanCoesm53/17/2025 4:33 PM EDT Narrative Authorizing ProviderResult TypeResult StatusKy ROBLERO POINT OF CARE TEST DOCKED DEVICE ORDERABLESFinal ResultPerforming OrganizationAddress City/State/ZIP CodePhone Number [facility] ([facility]) [address] [place] [address] * CORONARY ANGIOGRAPHY, ULTRASOUND - CORONARY (11/01/2024 [...] on TPN presents a direct admission from [facility] with chief complaint of chest pain. ?? [...] infiltrated over the right femoral artery. ??A 5-Egyptian Terumo sheath was placed in right femoral [...] was maintained at >250 seconds. A 5 Egyptian Cordis XB 3.0 guide was engaged to the left main. I decided to proceed with IVUS. ??I then advanced a Runthrough wire to the distal left anterior descending. Next, I advanced a GigsTime IVUS catheter. ??IVUS imaging was performed and [...] Details NSTEMI Authorizing ProviderResult TypeResult StatusKy Barbour [facility] CARDIAC CATH PROCEDURESFinal Result * (ABNORMAL) Anti-Xa (Heparin Level) (11/01/2024 6:04 AM EDT) Only the most recent of4 resultswithin the time period is included. ComponentValueRef RangeTest MethodAnalysis TimePerformed AtPathologist Signature Anti-Xa (Heparin)0.27(L)0.3 - 0.7 IU/mL11/01/2024 6:37 AM [facility] ([place])Comment:Rivaroxaban and Apixaban will interfere with the anti Xa assay used to monitor UFH and LMWH.Specimen (Source)Anatomical Location / Laterality Collection Method / VolumeCollection TimeReceived TimeBloodBlood sample taken from central line / UnknownExisting Catheter / Pztlknq2311/01/2024 6:04 AM EDT 11/01/2024 6:15 AM EDT Narrative Authorizing ProviderResult TypeResult StatusKy Barbour [facility] BLOOD ORDERABLESFinal ResultPerforming OrganizationAddressCity/State/ZIP CodePhone Number [facility] [address] [place], [place] [id number] * (ABNORMAL) Toxicology Screen, Urine (11/01/2024 2:12 AM EDT)ComponentValueRef RangeTest MethodAnalysis TimePerformed AtPathologist SignatureBarbiturates DmicfgadXpibnmrq45/17/2025 2:57 AM [facility] ([place]) BenzodiazepinesPositive(A)Rfuswdqw42/17/2025 2:57 AM [facility] ([facility])XifqcfrgcizqIkgcmgmzHyfmiaca54/17/2025 2:57 AM [facility])ShjacycknGolvudzuRtbkexnt83/17/2025 2:57 AM [facility] ([facility])DubxosubhrKahdyoelJbatdkug20/17/2025 2:57 AM [facility])OpvhcjlwbqlnwNzjnitssCgojbvsk33/17/2025 2:57 AM [facility] ([facility])OpiatesPositive(A)Sblshpvh61/17/2025 2:57 AM [facility])IpdrfsbQiwjbfcvNquskfwp32/17/2025 2:57 AM [facility] ([facility])Amphetamines/NbdmadogngcqhixQmiagplxOfbnorca02/17/2025 2:57 AM [facility])KrbrxpnpqtmZyzakqpsGfzwaozl24/17/2025 2:57 AM [facility] ([place])Specimen (Source)Anatomical Location / Laterality Collection Method / VolumeCollection TimeReceived TimeUrineUrine specimen obtained by clean catch procedure / UnknownNon-blood Collection / Unknown 11/01/2024 2:12 AM EDT11/01/2024 2:18 AM EDT Narrative [facility] - 11/01/2024 2:57 AM EDT Unconfirmed screening results should only be used for medical purposes. Authorizing ProviderResult TypeResult StatusKy ROBLERO URINE ORDERABLESFinal ResultPerforming OrganizationAddressCity/State/ZIP CodePhone Number [facility]) [address] [place] [address] * CORONARY ANGIOGRAPHY, LEFT HEART CATH (10/31/2024 [...] informed consent. ??she was brought to the cath lab technologist in a fasting state. The left wrist area was prepped and draped in usual fashion. Micropuncture technique was used for access in the radial artery. ??A 5-Egyptian x 11 cm sheath was placed. ??Verapamil was given through the sheath, and heparin was administered intravenously. ?? A 5 Egyptian JR4 diagnostic catheter was advanced and this [...] catheter was then downsized to a 4 Egyptian JR4 diagnostic catheter however this also was not able to engage the right coronary artery. ??Catheter was exchanged to a ??JR4 diagnostic catheter which could not engage the left coronary artery. ??Catheter was exchanged to a 4 Egyptian JL 3.5 diagnostic catheter which eventually was able to engage the left coronary artery. ??Angiography was performed in multiple views. Catheter was exchanged over the wire to a 4 Egyptian 3DRC catheter. ?? Multiple attempts were made [...] Study Details NSTEMI (non-ST elevated myocardial infarction) ([facility]) [I21.4] Authorizing ProviderResult TypeResult StatusCaleb [facility] CARDIAC CATH PROCEDURESFinal Result * LIMITED ECHO (TTE) W/ COLOR FLOW AND IMAGING AGENT (10/31/2024 11:40 AM EDT) Anatomical RegionLateralityModalityOtherSpecimen (Source)Anatomical Location / LateralityCollection Method / VolumeCollection TimeReceived Time10/31/2024 11:16 AM EDT Narrative 10/31/2024 12:44 PM EDT 1 1 [facility] Heart Station [address] [place] [address] [phone] (fax) Echocardiogram-[facility] Name: JUAN GARCIA Study Date: 10/31/2024 11:16 AM B/P: 106 mmHg/67 mmHg HR: 70 bpm Date of : 1990 Location: [facility] Height: 66 in. Age: 34 [...] Procedure Staff Reading Group: [facility] Sawmill Manager: DAVID Kearney, RDCS ??Ordering Physician: KY BARBOUR ?? Wall Motion Scores -1 - hyperkinesia, 0 - not evaluated, 1 - normal, 2 - hypokinesia, 3 - akinesia, 4 - dyskinesia Procedure Note Mitul Moya MD - 10/31/2024 1 1 [facility] Heart Station [address] [place] [address] [phone] (fax) Echocardiogram-[facility] Name: JUAN GARCIA Study Date: 10/31/2024 11:16 AM B/P: 106 mmHg/67 mmHg HR: 70 bpm Date of : 1990 Location: [facility] Height: 66 in. Age: 34 [...] Procedure Staff Reading Group: [facility] Sawmill Manager: DAVID Kearney, RDCS Ordering Physician: [place] BARBOUR Wall Motion Scores -1 - hyperkinesia, 0 - not evaluated, 1 - normal, 2 - hypokinesia, 3 - akinesia, 4 - dyskinesia Authorizing ProviderResult TypeResult Lena Barbour [facility] ECHO PROCEDURES Final Result * Hemoglobin A1c (10/31/2024 6:27 AM EDT)ComponentValueRef RangeTest Method Analysis TimePerformed AtPathologist SignatureHemoglobin A1C4.54.0 - 6.0 % 10/31/2024 1:13 PM [facility])Estimated Average Monjncq44 mg/dL10/31/2024 1:13 PM [facility] ([facility])Specimen (Source) Anatomical Location / LateralityCollection Method / VolumeCollection Time Received TimeBloodBlood sample taken from central line / UnknownExisting Catheter / Fasbxiy9710/31/2024 6:27 AM EDT10/31/2024 7:01 AM EDT Narrative Authorizing ProviderResult TypeResult Lena ROBLERO BLOOD ORDERABLESFinal ResultPerforming OrganizationAddressCity/State/ZIP CodePhone Number [facility] ([facility]) [address] [place] [address] * (ABNORMAL) Lipid panel (10/31/2024 6:27 AM EDT)ComponentValueRef RangeTest MethodAnalysis TimePerformed AtPathologist WinafclbaDkdivhjneayan16<150 mg/dL 10/31/2024 9:31 AM [facility] ([facility])Comment: TRIGLYCERIDE REFERENCE RANGE: 20 YEARS AND OLDER ?CARDIOVASCULAR RISK LESS THAN 150 mg/dL ? LOW RISK 150 TO 199 mg/dL ?BORDERLINE RISK 200 mg/dL AND GREATER ? HIGH RISK Magpivtvoir373(L)120 - 200 mg/dL10/31/2024 9:31 AM [facility]) LDL Hagztuocib477 - 160 mg/dL10/31/2024 9:31 AM [facility] ([facility])HDL 4323 - 92 mg/dL10/31/2024 9:31 AM [facility] ([facility])Non HDL Etnfsuuqnii1368/16/2025 9:31 AM [facility] ([facility])Total VLDL-C170 - 40 mg/dL10/31/2024 9:31 AM [facility] ([facility])Cholesterol/HDL Ratio2.7 mg/dL10/31/2024 9:31 AM [facility] ([facility])Specimen (Source)Anatomical Location / LateralityCollection Method / VolumeCollection TimeReceived Time BloodBlood sample taken from central line / UnknownExisting Catheter / Unknown 10/31/2024 6:27 AM EDT10/31/2024 7:11 AM EDT Narrative Authorizing ProviderResult TypeResult StatusKy Barbour MDLAB BLOOD ORDERABLESFinal ResultPerforming OrganizationAddressCity/State/ZIP CodePhone Number [facility]) [address] [place] [address] * TSH3 Reflex to FT4 (10/30/2024 7:11 PM EDT)ComponentValueRef RangeTest Method Analysis TimePerformed AtPathologist SignatureTSH3.460.34 - 5.60 mIU/L 10/30/2024 8:01 PM [facility] ([facility])Specimen (Source)Anatomical Location / LateralityCollection Method / VolumeCollection TimeReceived Time BloodVenous blood specimen / UnknownExisting Catheter / Nsqbmcq3810/30/2024 7:11 PM EDT10/30/2024 7:18 PM EDT Narrative Authorizing ProviderResult TypeResult StatusDebbie Luna CNPLAB BLOOD ORDERABLES Final ResultPerforming OrganizationAddressCity/State/ZIP CodePhone Number [facility]) [address] [place] [address] * (ABNORMAL) aPTT - baseline (10/30/2024 7:11 PM EDT)ComponentValueRef RangeTest MethodAnalysis TimePerformed AtPathologist GkvhhaftwbNFR27.0(H)25.0 - 35.0 Nehxnan4310/30/2024 7:48 PM [facility] ([facility])Comment:Clinical significance of the APTT is questionable in the presence of heparin.Specimen (Source)Anatomical Location / LateralityCollection Method / VolumeCollection TimeReceived TimeBloodVenous blood specimen / UnknownExisting Catheter / Mzbjomt2210/30/2024 7:11 PM EDT10/30/2024 7:18 PM EDT Narrative Authorizing ProviderResult TypeResult StatusAt[facility] Health [facility] BaldwinLAB BLOOD ORDERABLES Final ResultPerforming OrganizationAddressCity/State/ZIP CodePhone Number [facility]) [address] [place], [place] [phone] * B-type natriuretic peptide (10/30/2024 7:11 PM EDT)ComponentValueRef RangeTest MethodAnalysis TimePerformed AtPathologist GdcqoheslPJE543 - 100 pg/mL 10/30/2024 7:49 PM [facility] ([facility])Specimen (Source)Anatomical Location / LateralityCollection Method / VolumeCollection TimeReceived Time BloodVenous blood specimen / UnknownExisting Catheter / Hqvysty4110/30/2024 7:11 PM EDT10/30/2024 7:18 PM EDT Narrative Authorizing ProviderResult TypeResult StatusAtrium Health [facility] BaldwinLAB BLOOD ORDERABLES Final ResultPerforming OrganizationAddressCity/State/ZIP CodePhone Number [facility]) [address] [place], [place] [phone] from Last 3 Months Insurance * Guarantor: Juan Garcia TypeRelation to PatientDate of BirthPhone Billing AddressPersonal/AoyweoEvkg82/[birth year]/[id number] [place] [id number] Advance Directives * Full Code (Latest Code Status on File) Date ActivatedDate HmqzurbcvgxUdyllook76/1/2025 8:05 PM10 4:42 PM * Full Code Date ActivatedDate InactivatedComments11/09/2024 12:31 PM11/13/2024 4:34 PM * Full Code Date ActivatedDate InactivatedComments10/30/2024 7:14 PM11/07/2024 7:10 PM * Full Code Date ActivatedDate InactivatedComments08/16/2024 9:21 PM08/20/2024 5:55 PM Care Teams Team MemberRelationshipSpecialtyStart DateEnd Britt Alas MD [address] [facility] [address] [address] PCP - GeneralFamily Medicine08/17/24
--- OUTSIDE RECORDS SUMMARY | 2024-12-08 21:05 | XMS_ITS ---
Author Organization [facility] Address [address] [facility] [place] [address] Care Team Providers Care Customer Greeter Name Role Phone Thomas Alas MD Primary Care Provider [phone] Active Problems ProblemNoted DateDiagnosed DateAbnormal thyroid blood test12/05/2024llergic osnuzpyxmhygmj52/21/1316Ywnbldlv66/21/2025 Overview (12/05/2024): Problem List clean-up per request of Phys. EHR Cmte Edema12/05/20244565Ahetfsucpzux67/21/7347Fpzfeujsbez14/21/2025Otitis media of left ear12/05/2024Postgastric surgery auojwnee85/21/1449Wwteyxyvz45/21/2025 Overview (12/05/2024): Problem List clean-up per request of Phys. EHR Cmte Common bile duct prdvdpggam89/02/2025 Assessment & Plan (11/16/2024 2:13 AM EDT): CT chest/abd/pelvis noted CBD dilation and apperance of complex inflammatory changes. Patient has required multiple doses of opiates and antiemetics to control symptoms. Request to transfer to the [facility] where much of her advanced care has been provided with Specific concern that she may need ERCP/advanced endoscopy to further evaluation Pain management GI consult Disorder of endocrine nrxjvq3011/09/2024Lumbar pwypzxvdoahih41/25/2025Migraine 11/09/2024Severe protein-calorie malnutrition ([place]: less than 60% of standard weight)11/09/2024Pseudoaneurysm of right femoral qkincn2811/09/2024 Assessment & Plan (11/12/2024 12:39 PM EDT): [...] pseudoaneurysm 11/02 -stable - follow Hgb Myocardial qsfbxn7111/09/2024 Assessment & Plan (11/12/2024 12:39 PM EDT): [...] need to uptitrate verapamil if BP allows Rhwryztk76/18/2025Chest pain10/30/2024 Assessment & Plan (11/16/2024 2:13 AM [...] without complication, without long-term current use of phifgrn5510/30/2024 Assessment & Plan (11/12/2024 12:39 PM EDT): [...] at home, will begin ISS, ACHS Primary qbjigxlnryzw01/15/2025Other kxbzzcclrqzvug68/15/8804Gvdzir43/15/2025 Assessment & Plan (11/02/2024 1:29 PM EDT): [...] Stable, last BM yesterday Median arcuate ligament oinacijo03/15/2025 Assessment & Plan (11/12/2024 12:39 PM EDT): [...] and then MALS release S/P laparoscopic sleeve wnqavnsuhqj22/15/2025 Assessment & Plan (11/12/2024 12:39 PM EDT): [...] 9:00 PM EDT): - Stable Protein calorie /15/2025 Assessment & Plan (11/02/2024 1:29 PM EDT): [...] pain today patient brought urgently back to Compilation Clerk Assessment & Plan (11/01/2024 11:57 AM EDT): [...] -Pending TTE, cath Spontaneous dissection of coronary blbtvw5510/30/2024 Assessment & Plan (11/12/2024 12:39 PM EDT): [...] pain today patient brought urgently back to Compilation Clerk Feeding /09/2025roken central line09/21/2024Long term (current) use of opiate qoupnkxcd26/07/2025Poor response to enteral wlnibnkxt13/28/2025 Sepsis due to Tsovpybzgm19/04/2025 Assessment & Plan (08/19/2024 1:03 PM EDT): - source is likely the cellulitis around the J-tube status post J-tube removal. - CT scan from [facility] showing no abscess. - Infectious disease recommendations appreciated, continue with ceftriaxone. - Repeat blood cultures on 08/16: NGTD - central line in place, does not look like infected, continue monitoring, central line care. Assessment & Plan (08/18/2024 12:20 PM EDT): - source is likely the cellulitis around the J-tube status post J-tube removal. - CT scan from [facility] showing no abscess. - Infectious disease recommendations appreciated, continue with ceftriaxone. - Repeat blood cultures on 08/16: NGTD - central line in place, does not look like infected, continue monitoring, central line care. Sepsis due to Otcpacfwrltx14/04/2025 Assessment & Plan (08/19/2024 1:03 PM EDT): - source is likely the cellulitis around the J-tube status post J-tube removal. - CT scan from [facility] showing no abscess. - Infectious disease recommendations appreciated, continue with ceftriaxone. - Repeat blood cultures on 08/16: NGTD - central line in place, does not look like infected, continue monitoring, central line care. Assessment & Plan (08/18/2024 12:20 PM EDT): - source is likely the cellulitis around the J-tube status post J-tube removal. - CT scan from [facility] showing no abscess. - Infectious disease recommendations appreciated, continue with ceftriaxone. - Repeat blood cultures on 08/16: NGTD - central line in place, does not look like infected, continue monitoring, central line care. Ncbwrgmnxczsc84/04/2025 Assessment & Plan (11/12/2024 12:39 PM EDT): [...] and scheduled tramadol. Continue with as needed [place]. Assessment & Plan (08/18/2024 12:20 PM EDT): - continue with home meds including fentanyl patch and scheduled tramadol. Continue with as needed [place]. 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 Assessment & Plan (08/18/2024 12:20 PM EDT): - status postresection. History of adrenal vaobcemqhcgwf15/04/2025 Assessment & Plan (11/12/2024 12:39 PM EDT): [...] PM EDT): - continue with dexamethasone Acquired uilatftuikweej15/04/2025 Assessment & Plan (11/16/2024 2:13 AM EDT): [...] 12:20 PM EDT): - continue with levothyroxine. Tctkxksvcgjkkf42/03/2025 Assessment & Plan (11/12/2024 12:39 PM EDT): [...] well as other thyroid function testing Morbid psfojxa9608/17/2024 Assessment & Plan (08/19/2024 1:03 PM EDT): [...] daily DVT prophylaxis is VTE protocols per [facility] GI prophy Protonix Monitor labs) Obtain blood cultures Comments IV Vanco and cefepime Consult infectious diseases Early ambulation I discussed the plan of care with the patient and she is in agreement. Vxuoeisnqy03/02/2025 Assessment & Plan (08/17/2024 1:27 AM EDT): -Unclear blood cultures - Commence patient on Vanco/cefepime - Monitor patient blood cultures - Also evaluate lab tests and correct abnormalities - Consult infectious disease - Obtain 2D echocardiogram History of laparoscopic zcvhxoldmgjimvn37/25/2025hronic, continuous use of jmiyhrm2704/11/2024Starvation tonhuvchcxat97/25/2025Intestinal ywkllonnc16/07/2024 Screening for diabetes mellitus (DM)01/22/2024History of small bowel obstruction 01/21/2024Impaired intestinal dqsrbjaanb51/18/3939Vlibf40/25/2024urrent use of steroid dptzbzgtoq74/21/2024ommunity acquired pneumonia of left lower lobe of lung08/07/2023Idiopathic gwtebrbcisr59/21/2024spiration pneumonia of left lower lobe due to vomit08/04/2023Syncope and ryfrpbfe59/19/2024Heart fcxvjvm0506/29/2023 Acute renal failure superimposed on chronic kidney sbrwiba4906/29/2023Hypokalemia 06/29/2023ecreased oral dxpyrb9905/25/20238217Kannyvlclackel38/19/2024nxiety and avcaykoqul32/23/2023Feeding zfonyuh1512/07/2022Therapeutic drug monitoring 12/07/20225317Otdphnjcggz40/12/2023ilious vomiting with zxkdvk7310/28/2022Intractable vomiting with ahxpfl9110/25/20228679Tbxmad67/20/2023 Overview (11/09/2024): Takes Pro FE daily. Last Assessment & Plan: Assessment: iron infusions ~1 month ago Acute pain of right knee08/04/2022all stone08/04/2022Internal derangement of right /20/2023Mixed incontinence urge and nxmzea4608/04/2022Other specified noninflammatory disorders of ahpxfk5908/04/2022atellofemoral pain syndrome of right knee08/04/2022Right flank pain08/04/2022Vaginal pain08/04/2022 Rash and nonspecific skin tugulvou16/07/2023History of Isabel-en-Y gastric bypass 06/24/2022ipolar zqwhqvey78/07/2023astric dlbdje8701/29/2022Iron deficiency ubnidj0211/01/2021Ventral hernia without obstruction or pyddsmyn34/27/2022 Overview (12/05/2024): Last Assessment & Plan: Assessment: will have surgery Calculus of tauucq6703/10/2021bnormal finding on imaging of liver04/07/2020 Moderate recurrent major exnaeeuafh93/18/2020Situational dwwqpu5001/03/2020Panic disorder without wpmoatsonyw55/06/2020Trauma and stressor-related disorder 11/21/2019Duodenogastric reflux of bile11/16/20198059Jordhj13/10/2020Preoperative /10/2020Regurgitation of food09/25/2019Laryngopharyngeal reflux 10/07/2018Obstructive sleep apnea /23/2019 Overview (12/05/2024): wears mask every night Ehbxpnfjdpmbws14/20/2019Reactive kvujcbyfiwfg44/19/2019Chronic fatigue syndrome 09/19/2018Iron uwjprfjxax20/05/2019Vitamin D tnvuytvbha37/05/2019Insomnia 09/15/2018Maltracking of right qrakzwd9906/27/2018Chondromalacia of patella, right 05/30/2018Arthritis of right knee05/30/201839 [...]
--- OUTSIDE RECORDS SUMMARY | 2024-12-08 21:05 | XMS_ITS | Clinical Summary ---
Author Organization [facility] Address [address] [place] [address] Care Team Providers Care Optometry Assistant Name Role Phone Thomas Alas MD Primary Care Provider [phone] Allergies Active AllergyReactionsCriticalityNoted DateCommentsCodeine And Related 11/12/20174692Lerald06/13/2024 Medications MedicationSigDispense QuantityRefillsLast FilledStart DateEnd DateStatus metformin [...] bedtime.12/27/2023ctive Active Problems ProblemNoted DateDiagnosed DateImpaired intestinal gvbztmcupn28/18/2024 Jejunostomy tube ranzxdd0206/07/2023Median arcuate ligament erlqzilw05/14/2023 Dysfunction of sphincter of Oddi11/06/2022cquired yaqylwtbktzqsj27/10/2023 Intractable vomiting with kmufpf9310/25/2022hronic /20/2023Mixed anxiety depressive jvcitpjk79/20/2023ipolar /07/2023Obesity: body mass index of 35.0-39.91evere protein-calorie klwyuxgaxxpn16/20/2021 Trauma and stressor-related egmtjdde20/06/2020Benign essential HTN09/25/2019 Overview (01/25/2024): Last Assessment & Plan: Assessment: not on meds,monitored per PCP BP 141/70 pulse 62 Obstructive sleep apnea hueccurs97/23/2019 Overview (01/25/2024): wears mask every night Chronic fatigue tzndpala09/05/2019 Social History Tobacco UseTypesPacks/DayYears UsedDateSmoking Tobacco: NeverSmokeless Tobacco: NeverAlcohol UseStandard Drinks/WeekCommentsNo0 (1 standard drink = 0.6 oz pure alcohol)CommentsNoSex and Gender InformationValueDate RecordedSex Assigned at BirthNot on fileLegal MuhXodglf11/28/2018 1:19 PM EDTGender Identity Juynsu3711/12/2017 1:20 PM EDTSexual NcxmctyifoiZexwxafh87/14/2024 7:37 AM EST Last Filed Vital Signs Vital SignReadingTime TakenCommentsBlood Ipendojv153/8209 1:52 PM EDT Lpyyb824711/02/2022 1:52 PM NJHIhtzgwbvsjo26.8 ??C (98.3 ??F)11/02/2022 10:34 AM EDTRespiratory Sypl824411/02/2022 1:52 PM EDTOxygen Trnndnmvyn48%11/02/2022 10:34 AM EDTInhaled Oxygen Concentration--Tldxxd54.3 kg (188 lb)12/29/2023 10:23 AM KSUGdvxen100.6 cm (5' 6 )12/29/2023 10:23 AM ESTBody Mass Index30.34102/27/2023 10:23 AM EST Plan of Treatment Health MaintenanceDue DateLast DoneCommentsHEPATITIS C VIRUS CWSNSACFR25/17/1990 TSH1989HIV SCREENING DLWFMWZPYO81/17/2005HEP B VACCINE (1 of 3 - 19+ 3- dose series)2008CERVICAL CANCER SCREENING XKZNLPISHX69/17/2011HPV VACCINE (1 - 3-dose SCDM series)2016COVID-19 VACCINE ( season) 501/05/2021, 06/23/2020INFLUENZA VACCINE (#1)509/, 11/16/2021, 01/01/2021, Additional history zvlqkyZJLEEKS51/07/202708/08/2016TDAP (ADULT)Zfpcqdpnu47/07/2017PNEUMOCOCCAL VACCINE SERIESAged OutNo longer eligible based on patient's age to complete this topic Insurance * Guarantor: Corby Kong TypeRelation to PatientDate of BirthPhoneBilcharleston [facility] AddressPersonal/LsbxlrTkgt11[birth year][id number] [place] [address] * Guarantor: Corby Kong TypeRelation to PatientDate of BirthPhoneBilcharleston area medical center AddressPersonal/AcppttRimn23/17/1991 [id number] [address] Care Teams Team MemberRelationshipSpecialtyStart DateEnd Thomas Alas MD PCP - Xeznapf34/14/24
--- OUTSIDE RECORDS SUMMARY | 2024-12-08 21:05 | XMS_ITS | Encounter Summary ---
Author Organization [facility] Address [address] [place] [address] Care Team Providers Care Reel Film Inspector Name Role Phone Thomas Alas MD Primary Care Provider Encounter Details DateTypeDepartmentCare Team (Latest Contact Info)Ykgzearozcz62/12/2025Travel Social History Tobacco UseTypesPacks/DayYears UsedDateSmoking Tobacco: NeverSmokeless Tobacco: NeverAlcohol UseStandard Drinks/WeekCommentsNot Currently0 (1 standard drink = 0.6 oz pure alcohol)[facility] UtilitiesAnswerDate RecordedIn the past 12 [...] 11/15/2024CommentsNoSex and Gender InformationValueDate RecordedSex Assigned at JrdokVhbnci51/03/2025 3:45 PM EDTLegal AriEpfxmm65/30/2022 12:07 AM EDTGender SurhkktpYizisu71/03/2025 3:45 PM EDTSexual OrientationHeterosexual or Dsmxicmt87/03/2025 3:45 PM EDTdocumented as of this encounter Functional Status * QuestionAnswerDate of WvttdadywbUzrqgaHJ838/6011/26/2024 9:25 PM Andie Bridges, VELrhzl5157/12/2025 9:25 PM Andie Bridges RN * Qureshi Fall RiskQuestionAnswerDate of AssessmentAuthorHistory of Falling, Immediate or Within 3 Esroen145 7:34 PM Roseline Lopez RNSecondary Rrrwadcqb086/12/2025 7:34 PM Roseline Lopez RNAmbulatory Gel951 7:34 PM Roseline Lopez RNIntravenous Therapy/Heparin Qvnh604 7:34 PM Roseline Lopez RNGait/Msrcglyhxspi269/12/2025 7:34 PM Roseline Lopez RNMental Ranuxo936 7:34 PM Roseline Lopez RNMorse Fall Risk Vhjfs658 7:34 PM Roseline Lopez RN * Cyrus ScaleQuestionAnswerDate of AssessmentAuthorBraden No Risk Interventions Continue to assess patient according to level of care11/26/2024 8:30 PM EDT Andie Fletcher, RNSensory Oskopuyeuoz410/12/2025 8:30 PM Andie Bridges RNMoisture41 8:30 PM Andie Bridges, RNActivity4 11/26/2024 8:30 PM Andie Bridges RNMobility31 8:30 PM EDT Andie Fletcher RNNutrition21 8:30 PM Andie Bridges RN Friction and Ikuct306 8:30 PM Andie Bridges RNBraden Scale Waprc6370/12/2025 8:30 PM Andie Bridges RN * Patient's Stated Pain GoalAnswerDate of AssessmentAuthorNo pain11/26/2024 9:33 PM Andie Bridges RN * Toyah Fall Risk InterventionsQuestionAnswerDate of AssessmentAuthor Toyah Fall Risk OwrjkgyxnxoqpQwifpmlu46/12/2025 7:34 PM Roseline Lopez RN * Pain Assessment TimerQuestionAnswerDate of AssessmentAuthorRestart Pain Assessment YdkswGls30/12/2025 9:33 PM Andie Bridges RN * In the past 12 months, have you used drugs other than those required for medical reasons?AnswerDate of WvtrzrakulKsuohb911/12/2025 7:35 PM Roseline Lopez RN * Sepsis Model ScoresQuestionAnswerDate of AssessmentAuthorEarly Detection of Sepsis Score1.4611/26/2024 9:31 PM Matthias FatimaqEarly Detection of Sepsis Crhju095 9:31 PM Delano Fatima * Pain AssessmentQuestionAnswerDate of AssessmentAuthorPain LocationAbdomen 11/26/2024 8:30 PM Andie Bridges RNPain PoruasdqnaiNyaei34/12/2025 8:30 PM Andie Bridges RNPain VeoqvbkciutyhNyqnhbxezjml13/12/2025 8:30 PM Andie Bridges RNPain DescriptorsPressure;Rrwkgk5311/26/2024 8:30 PM Andie Bridges RNPain WngbnMacbhmo08/12/2025 8:30 PM Andie Bridges RNPain TypeAcute pain11/26/2024 8:30 PM Andie Bridges RN Clinical ProgressionNot nxkkpcq3411/26/2024 8:30 PM Andie Bridges RNPain Assessment0-101 8:30 PM Andie Bridges RN * Pain ScoreAnswerDate of TvyqpehvfqEnotpf910/12/2025 9:33 PM Andie Bridges RN * Audit [...] Andie Bridges RN * Vital SignsQuestionAnswerDate of RibxkpioprWenbpqWS783/6011/26/2024 9:25 PM Andie Bridges RNTemp97.91 7:34 PM Roseline Lopez RNTemp kgmSacw1011/26/2024 7:34 PM Roseline Lopez RNPulse7311/26/2024 9:25 PM Andie Muhammad RNResp181 9:25 PM Andie Bridges INJeY890 11/26/2024 9:25 PM Andie Bridges RNMAP (mmHg)7311/26/2024 9:25 PM EDT Andie Fletcher RNPulse rate from Plethysmogram (bpm)7211/26/2024 9:25 PM Andie Bridges RN * GastrointestinalQuestionAnswerDate of AssessmentAuthorAbdominal TendernessSoft 11/26/2024 8:30 PM Andie Bridges RNBowel Sounds (All Quadrants)Active 11/26/2024 8:30 PM Andie Bridges RNGastrointestinal (WDL)X1 8:30 PM Andie Bridges RNAbdomen QurnuvbgxwMrlr53/12/2025 8:30 PM EDT Andie Fletcher RNGastrointestinal SymptomsNausea;Fjumituc53/12/2025 8:30 PM Andie Bridges RNBowel SoundsAll uvyynzhzt85/12/2025 8:30 PM EDT Andie Fletcher RN * Peripheral VascularQuestionAnswerDate of AssessmentAuthorPeripheral Vascular (WDL)WDL1 8:30 PM Andie Bridges RN * MusculoskeletalQuestionAnswerDate of AssessmentAuthorMusculoskeletal (WDL)WDL 11/26/2024 8:30 PM Andie Bridges RN * PsychosocialQuestionAnswerDate of AssessmentAuthorPsychosocial (WDL)WDL 11/26/2024 8:30 PM Andie Bridges RN * Qureshi Fall RiskQuestionAnswerDate of AssessmentAuthorHistory of Falling, Immediate or Within 3 Uuktuy319 7:34 PM Roseline Lopez RNSecondary Hwwjbkngv720/12/2025 7:34 PM Roseline Lopez RNAmbulatory Pzb005 7:34 PM Roseline Lopez RNIntravenous Therapy/Heparin Ihux115 7:34 PM Roseline Lopez RNGait/Lqhychkwpvhi164/12/2025 7:34 PM Roseline Lopez RNMental Gmctdx586 7:34 PM Roseline Lopez RNMorse Fall Risk Xrntr950 7:34 PM Roseline Lopez RN * Cyrus ScaleQuestionAnswerDate of AssessmentAuthorBraden No Risk Interventions Continue to assess patient according to level of care11/26/2024 8:30 PM EDT Andie Fletcher, RNSensory Dwryedkrujo706/12/2025 8:30 PM Andie Bridges RNMoisture41 8:30 PM Andie Bridges, RNActivity4 11/26/2024 8:30 PM Andie Bridges RNMobility31 8:30 PM EDT Andie Fletcher RNNutrition21 8:30 PM Andie Bridges RN Friction and Tdraa777 8:30 PM Andie Bridges RNBraden Scale Vfkxz7919 8:30 PM Andie Bridges RN * CardiacQuestionAnswerDate of AssessmentAuthorCardiac (WDL)WDL1 8:30 PM Andie Bridges RN * RespiratoryQuestionAnswerDate of AssessmentAuthorRespiratory (WDL)WDL 11/26/2024 8:30 PM Andie Bridges RN * Charting TypeQuestionAnswerDate of AssessmentAuthorCharting TypeShift jfqtjfpuvs31/12/2025 8:30 PM Andie Bridges RN * Patient's Stated Pain GoalAnswerDate of AssessmentAuthorNo pain11/26/2024 9:33 PM Andie Bridges RN * GenitourinaryQuestionAnswerDate of AssessmentAuthorGenitourinary (WDL)X 11/26/2024 8:30 PM Andie Bridges RN * NeurologicalQuestionAnswerDate of AssessmentAuthorNeuro (WDL)WDL1 8:30 PM Andie Bridges RN * Toyah Fall Risk InterventionsQuestionAnswerDate of AssessmentAuthor Toyah Fall Risk CpwbtmyvpphteIlqdaqoy09/12/2025 7:34 PM Roseline Lopez RN * Kris Coma ScaleQuestionAnswerDate of AssessmentAuthorBest Eye Response Uqtdzwesrpa21/12/2025 8:30 PM Andie Bridges RNBest Verbal Response Kqretsvv41/12/2025 8:30 PM Andie Bridges RNBest Motor ResponseFollows exkcxfmx92/12/2025 8:30 PM Andie Bridges RNGlasgow Coma Scale Score15 11/26/2024 8:30 PM Andie Bridges RN * Pain AssessmentQuestionAnswerDate of AssessmentAuthorPain LocationAbdomen 11/26/2024 8:30 PM Andie Bridges RNPain LlicxsltzxyAusfz93/12/2025 8:30 PM Andie Bridges RNPain KtaubqopduvmdGjlzxjpsxfdi64/12/2025 8:30 PM Andie Bridges RNPain DescriptorsPressure;Btvvss7511/26/2024 8:30 PM Andie Bridges RNPain WofgoIqkpelb38/12/2025 8:30 PM Andie Bridges RNPain TypeAcute pain11/26/2024 8:30 PM Andie Bridges RN Clinical ProgressionNot iywifxh9211/26/2024 8:30 PM Andie Bridges RNPain Assessment0-101 8:30 PM Andie Bridges RN * IntegumentaryQuestionAnswerDate of AssessmentAuthorSkin ColorAppropriate for race11/26/2024 8:30 PM Andie Bridges RNSkin Condition/TempWarm;Dry 11/26/2024 8:30 PM Andie Bridges RNIntegumentary (WDL)X1 8:30 PM Andie Bridges RN * Pain ScoreAnswerDate of NphzendwxaWtzhxq530/12/2025 9:33 PM Andie Bridges RN * [place] Suicide Severity Rating ScaleQuestionAnswerDate of AssessmentAuthor1. Have [...] Plan of Treatment DateTypeDepartmentCare Team (Latest Contact Info)Uupovpbzulm97/30/2025 9:00 AM EDTAppointment [facility] [address] [place] [address] Braxton Bellamy MD [address] [facility] [address] [facility] [place] [address] 12/14/2024 10:30 AM EDTAppointment [facility] X-Ray Imaging [address] [place] [address] 01/31/2025 11:00 AM ESTOffice Visit [facility] [address] [place] [address] Wali Collins MD [address] [place] [address] documented as of this encounter Visit Diagnoses Not on filedocumented in this encounter Care Teams Team MemberRelationshipSpecialtyStart DateEnd Thomas Alas MD [address] [facility] [address] [address] PCP - GeneralFamily Medicine08/17/24documented as of this encounter
--- NOTE | 2024-12-08 21:34 | XR_ITS ---
[facility] [place] [id number] Patient Name: JUAN KONG MRN: [id number] date: 1990 Sex: F Assigned Patient Location: ER Current Patient Location: ER Accession/Order Number: [id number] Exam Date: 12/08/2024 21:42 Report Date: 12/08/2024 22:00 At the request of: SALVADOR OLSEN MD Procedure: XR chest 1V PA CHEST: CLINICAL HISTORY: chest pain COMPARISON: CT chest 11/16/2024 The heart is normal in size. The lungs are clear. The pulmonary vasculature is normal. Mediastinum and hilar regions are unremarkable. No pleural effusions are seen. Visualized bones are intact. Catheter projects over the right chest terminating in distal SVC. XR/XR chest 1V IMPRESSION: Negative for acute pleural or parenchymal disease Impression dictated by: Tio Lundberg M.D. 12/08/2024 10:00 PM Dictation Location: [place] [address] Electronically authenticated by: [id number] Y Date: 12/08/2024 22:00
[2024-12-08 21:42] LABS: Hematocrit 31.7 % (36.0-48.0); Hemoglobin 10.5 g/dL (12.0-16.0); Immature Granulocytes Abs Auto 0.00 10^3/uL (0.00-0.03); Immature Granulocytes Pct Auto 0.0 % (0.0-0.5); Lymphocytes Absolute Auto 1.6 10^3/uL (1.2-3.8); Mean Corpuscular HGB Conc 33.1 g/dL (29.9-35.2); Mean Corpuscular Hemoglobin 29.7 pg (26.7-34.0); Mean Corpuscular Volume 89.5 fL (81.0-99.0); Platelet Count 194 10^3/uL (150-450); Red Blood Count 3.54 10^6/uL (4.20-5.40); White Blood Count 4.1 10^3/uL (4.0-11.0)
--- NOTE | 2024-12-08 21:47 | ED.CHESTPAI1 ---
HPI - Chest Pain General Chief Complaint: Chest Pain Stated Complaint: VOMITING Time Seen by Provider: 12/08/24 20:58 Source: patient Mode of arrival: ambulance History of Present Illness HPI narrative: chest pain. states she has a [place] last month. 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 States she was also informed of diagnosis of coronary spasm. She also has history of gastroparesis and receives TPN feeding. [place] developed acute onset of mid chest pain associated with nausea and vomiting. Symptoms ongoing for past couple of hours. No dyspnea. Normal EKG. States she still has pain and nausea. Family states her color is better. No fever Related Data Home Medications ?Medication ?Instructions ?Recorded ?Confirmed hydroxyzine HCl 25 mg tablet 25 mg PO BID PRN anxiety 09/17/22 12/08/24 topiramate 100 mg tablet 100 mg PO BID 09/17/22 12/08/24 metoclopramide HCl 10 mg tablet 10 mg PO BID PRN nausea and 06/14/23 12/08/24 vomiting escitalopram oxalate 20 mg tablet 20 mg PO DAILY 06/15/23 12/08/24 levothyroxine 75 mcg tablet 75 mcg PO DAILY 06/15/23 12/08/24 acetaminophen 325 mg tablet (Pain 650 mg PO Q4H PRN pain 06/24/23 12/08/24 Relief (acetaminophen)) blood sugar diagnostic ([facility] 03/29/24 12/08/24 Ultra Test strips) blood-glucose meter ([facility] 03/29/24 12/08/24 Ultra2 Meter) blood-glucose sensor (FreeStyle 03/29/24 12/08/24 Hunter 3 Plus Sensor device) fentanyl 25 mcg/hr transdermal 1 patch transdermal Q72H 03/29/24 12/08/24 patch hydrocodone 5 mg-acetaminophen 325 1 tab PO Q6H PRN pain 03/29/24 12/08/24 mg tablet lancets 30 gauge (OneTouch Delica 03/29/24 12/08/24 Plus Lancet) pen needle, diabetic 32 gauge x 03/29/24 12/08/24 (BD Stefania 2nd Gen Pen Needle) prucalopride 2 mg tablet 2 mg PO DAILY 03/29/24 12/08/24 trazodone 100 mg tablet 100 mg PO .qhs 03/29/24 12/08/24 ergocalciferol (vitamin D2) 1,250 1,250 mcg PO .Q7 06/21/24 12/08/24 mcg (50,000 unit) capsule mirtazapine 45 mg tablet 45 mg PO BEDTIME 08/16/24 12/08/24 aspirin 81 mg chewable tablet 1 tab PO .qd 11/19/24 12/08/24 clopidogrel 75 mg tablet 75 mg PO .qd 11/19/24 12/08/24 colchicine 0.6 mg tablet 0.3 mg PO .qod 11/19/24 12/08/24 fentanyl 12 mcg/hr transdermal 1 patch transdermal Q72H 11/19/24 12/08/24 patch methocarbamol 500 mg tablet 750 mg PO Q6H PRN Muscle spasm 11/19/24 12/08/24 metoprolol succinate 25 mg 25 mg PO .qd 11/19/24 12/08/24 tablet,extended release 24 hr ranolazine 500 mg tablet,extended 500 mg PO Q12H 11/19/24 12/08/24 release,12 hr rosuvastatin 40 mg tablet 40 mg PO .qhs 11/19/24 12/08/24 verapamil 40 mg tablet 40 mg PO Q8H 11/19/24 12/08/24 Previous Rx's ?Medication ?Instructions ?Recorded meloxicam 7.5 mg tablet 7.5 mg PO DAILY PRN pain #3 tabs 11/30/24 Allergies Allergy/AdvReac Type Severity Reaction Status Date / Time adhesive Allergy Rash Verified 12/08/24 21:02 NSAIDS (Non-Steroidal Allergy intolerance Verified 12/08/24 21:02 Anti-Inflamma codeine AdvReac Vomiting Verified 12/08/24 21:02 Review of Systems ROS Status of ROS 10 or more systems reviewed and unremarkable except as noted in history and below [facility] Medical History (Updated 12/09/24 @ 00:29 by Gideon Espinoza MD) Coronary artery dissection ?I25.42 - Coronary artery dissection (ICD-10) Hypoglycemia ?E16.2 - Hypoglycemia, unspecified (ICD-10) Gastroenteritis ?K52.9 - Noninfective gastroenteritis and colitis, unspecified (ICD-10) Feeding by G-tube ?Z93.1 - Gastrostomy status (ICD-10) Abdominal pain ?R10.9 - Unspecified abdominal pain (ICD-10) Small bowel intussusception ?K56.1 - Intussusception (ICD-10) Nausea and vomiting ?R11.2 - Nausea with vomiting, unspecified (ICD-10) Flank pain ?R10.9 - Unspecified abdominal pain (ICD-10) Abdominal pain ?R10.9 - Unspecified abdominal pain (ICD-10) Acute abdomen ?R10.0 - Acute abdomen (ICD-10) Intractable nausea and vomiting ?R11.2 - Nausea with vomiting, unspecified (ICD-10) Intractable abdominal pain ?R10.9 - Unspecified abdominal pain (ICD-10) Depression ?F32.A - Depression, unspecified (ICD-10) Asthma ?J45.909 - Unspecified asthma, uncomplicated (ICD-10) Dyspareunia Pelvic pain ?R10.2 - Pelvic and perineal pain (ICD-10) Ovarian cyst ?N83.209 - Unspecified ovarian cyst, unspecified side (ICD-10) PONV (postoperative nausea and vomiting) ?R11.2 - Nausea with vomiting, unspecified (ICD-10) ?Z98.890 - Other specified postprocedural states (ICD-10) PCOS (polycystic ovarian syndrome) ?E28.2 - Polycystic ovarian syndrome (ICD-10) Hypothyroidism (acquired) ?E03.9 - Hypothyroidism, unspecified (ICD-10) Anxiety ?F41.9 - Anxiety disorder, unspecified (ICD-10) GERD (gastroesophageal reflux disease) ?K21.9 - Gastro-esophageal reflux disease without esophagitis (ICD-10) Sleep apnea ?G47.30 - Sleep apnea, unspecified (ICD-10) Anemia ?D64.9 - Anemia, unspecified (ICD-10) Fibromyalgia ?M79.7 - Fibromyalgia (ICD-10) Syncope (07/07/13) ?R55 - Syncope and collapse (ICD-10) Shingles ?B02.9 - Zoster without complications (ICD-10) Headache ?R51.9 - Headache, unspecified (ICD-10) Migraine ?G43.909 - Migraine, unspecified, not intractable, without status migrainosus (ICD-10) Mechanical ileus (01/31/20) ?K56.609 - Unspecified intestinal obstruction, unspecified as to partial versus complete obstruction (ICD-10) COVID-19 (~02/2020) ?U07.1 - COVID-19 (ICD-10) Kidney stones ?N20.0 - Calculus of kidney (ICD-10) Surgical History S/P percutaneous endoscopic gastrostomy (PEG) tube placement ?Z93.1 - Gastrostomy status (ICD-10) 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 - Celiac artery compression syndrome (ICD-10) H/O shoulder surgery (2022) ?Z98.890 - Other specified postprocedural states (ICD-10) History of hip surgery ?Z98.890 - Other specified postprocedural states (ICD-10) S/P right knee arthroscopy ?Z98.890 - Other specified postprocedural states (ICD-10) S/P left knee arthroscopy ?Z98.890 - Other specified postprocedural states (ICD-10) Hx of tonsillectomy ?Z90.89 - Acquired absence of other organs (ICD-10) History of thoracic surgery (~2021) ?Z98.890 - Other specified postprocedural states (ICD-10) History of esophagogastroduodenoscopy (EGD) (10/04/13) ?Z98.890 - Other specified postprocedural states (ICD-10) History of cholecystectomy (10/06/13) ?Z90.49 - Acquired absence of other specified parts of digestive tract (ICD-10) Delivery by section (~2016) Delivery by section (01/17/18) H/O colonoscopy (~2018) ?Z98.890 - Other specified postprocedural states (ICD-10) S/P right knee arthroscopy (07/21/18) ?Z98.890 - Other specified postprocedural states (ICD-10) Delivery by section (06/19/19) History of appendectomy (09/25/19) ?Z90.49 - Acquired absence of other specified parts of digestive tract (ICD-10) H/O laparoscopy (11/10/19) ?Z98.890 - Other specified postprocedural states (ICD-10) History of liver biopsy (~04/2020) ?Z98.890 - Other specified postprocedural states (ICD-10) H/O laparoscopy (07/18/20) ?Z98.890 - Other specified postprocedural states (ICD-10) H/O arthroscopy of right knee (08/07/20) ?Z98.890 - Other specified postprocedural states (ICD-10) S/P laparoscopic sleeve gastrectomy (09/03/20) ?Z98.84 - Bariatric surgery status (ICD-10) H/O: hysterectomy (11/12/20) ?Z90.710 - Acquired absence of both cervix and uterus (ICD-10) History of hernia repair (03/20/21) ?Z98.890 - Other specified postprocedural states (ICD-10) ?Z87.19 - Personal history of other diseases of the digestive system (ICD-10) Family History Other Family history of cancer Family history of diabetes mellitus Family history of hypertension Family history of myocardial infarction PONV (postoperative nausea and vomiting) Social History Within the past year, how often did you have a drink containing alcohol: never Score interpretation: A score less than 3 is consistent with normal alcohol consumption. Smoking status: Never smoker Non-prescribed substance use: denies use Previous occupational history: disabled Known occupational exposures/hazards details: disabled Highest level of school completed/degree received: Master's degree Are you now , , , , never or living with a partner: In a typical week, how many times do you talk on the telephone with family, friends, or neighbors: 3 or more times per week How often do you get together with friends or relatives: twice per week How often do you attend anabaptist or islam services: 4 or more times per year Do you belong to any clubs or organizations such as anabaptist groups unions, fraternal or athletic groups, or school groups: no Total score: 3 Score interpretation: A score of greater than or equal to 2 indicates the lowest level of social isolation. Little interest or pleasure in doing things: not at all Feeling down, depressed, or hopeless: not at all Feel stressed/tense/nervous/anxious/difficulty sleeping: to some extent Do you think of yourself as: straight/heterosexual Gender Identity: female Exam Constitutional Vital Signs, click to edit/add: Last Vital Signs Temp 97.7 F 12/08/24 21:02 Pulse 65 12/09/24 00:00 Resp 11 L 12/09/24 00:00 BP 110/66 12/09/24 00:00 Pulse Ox 99 12/09/24 00:00 O2 Del Method Room Air 12/08/24 21:02 Common normals: no apparent distress, average body habitus, oriented x3, no limitations, healthy appearing, alert and well nourished Other: resting comfortably HENMT Common normals: normocephalic and head/scalp atraumatic Eye Common normals: EOMs intact bilaterally and conjunctivae normal Respiratory Common normals: normal respiratory effort, no retractions, no use of accessory muscles and clear to auscultation bilaterally Cardio Common normals: regular rate, regular rhythm, S1 normal heart sound and S2 normal heart sound GI Common normals: Normal to inspection, nondistended, normoactive bowel sounds present and soft to palpation Extremity Common normals: normal to inspection and full ROM Neuro Common normals: oriented x3, CN's II-XII intact bilaterally, moves all extremities and no focal motor deficits Psych Appearance: grossly normal Course Vital Signs Vital signs: Vital Signs Pulse Rate 73 12/08/24 20:53 Respiratory Rate 10 L 12/08/24 20:53 Temperature 97.7 F 12/08/24 21:02 Pulse Rate 65 12/09/24 00:00 Respiratory Rate 11 L 12/09/24 00:00 Blood Pressure 110/66 12/09/24 00:00 Pulse Oximetry 99 12/09/24 00:00 Oxygen Delivery Method Room Air 12/08/24 21:02 MDM - Chest Pain MDM Narrative Medical decision making narrative: patient has history of coronary vasospasm and past coronary dissection treated conservatively with ASA and plavix. Also has severe gastroparesis and because of it receives TPN feeding. Developed chest pain and nausea tonight and presented to the ER. No dyspnea. Cxray clear. Serial troponin neg. Her 2nd troponin went down from 5.5 to 4.4. Patient treated with morphine 4mg once and nausea finally improved after zofran, reglan and benadryl. She is now feeling better and discharged in improved condition. Her EKG is normal. She is to follow up with her doctor Lab Data Labs: Lab Results 12/08/24 12/08/24 Range/Units 21:10 23:47 WBC 4.1 (4.0-11.0) 10^3/uL RBC 3.54 L (4.20-5.40) 10^6/uL Hgb 10.5 L (12.0-16.0) g/dL Hct 31.7 L (36.0-48.0) % MCV 89.5 (81.0-99.0) fL MCH 29.7 (26.7-34.0) pg MCHC 33.1 (29.9-35.2) g/dL RDW 13.9 (11.0-15.0) % Plt Count 194 (150-450) 10^3/uL MPV 11.4 (9.5-13.5) fL Neut % (Auto) 48.3 (43.0-75.0) % Lymph % (Auto) 38.7 (20.5-60.0) % [place] % (Auto) 8.2 (1.7-12.0) % Eos % (Auto) 4.1 (0.9-7.0) % Baso % (Auto) 0.7 (0.2-2.0) % Neut # (Auto) 2.0 (1.4-6.5) 10^3/uL Lymph # (Auto) 1.6 (1.2-3.8) 10^3/uL [place] # (Auto) 0.3 (0.3-0.8) 10^3/uL Eos # (Auto) 0.2 (0.0-0.7) 10^3/uL Baso # (Auto) 0.0 (0.0-0.1) 10^3/uL Abs Immat Gran (auto) 0.00 (0.00-0.03) 10^3/uL Imm/Tot Granulo (auto) 0.0 (0.0-0.5) % Sodium 142 (136-145) mmol/L Potassium 4.0 (3.5-5.1) mmol/L Chloride 106 (98-107) mmol/L Carbon Dioxide 25.6 (21.0-32.0) mmol/L Anion Gap 14.4 BUN 7.0 (7.0-18.0) mg/dL Creatinine 0.83 (0.55-1.02) mg/dL Est GFR ( Amer) >60 (>=60 mL/min/1.73m^2) Est GFR (Non-Af Amer) >60 (>=60 mL/min/1.73m^2) BUN/Creatinine Ratio 8.4 Glucose 86 (74-106) mg/dL Calcium 8.2 L (8.5-10.1) mg/dL Troponin I High Sens 5.5 4.4 (4.0-51.3) pg/mL NT-Pro-B Natriuret Pep 79.0 (<=450.0) pg/mL Discharge Plan Discharge Chief Complaint: Chest Pain Clinical Impression: Chest pain Qualifiers: Chest pain type: other chest pain Qualified Code(s): R07.89 - Other chest pain Patient Disposition: Home, Self-Care Prescriptions / Home Meds: No Action (DME) blood-glucose meter [OneTouch Ultra2 Meter] [facility] MISCELLANEOUS (DME) OneTouch Ultra Test Strip MISCELLANEOUS fentanyl 25 mcg/hr patch 72 hour 1 patch transdermal Q72H (DME) FreeStyle Hunter 3 Plus Sensor Device MISCELLANEOUS hydrocodone-acetaminophen 5-325 mg tablet 1 tab PO Q6H PRN (Reason: pain) (DME) lancets [OneTouch Delica Plus Lancet] 30 gauge [facility] MISCELLANEOUS (DME) pen needle, diabetic [BD Stefania 2nd Gen Pen Needle] 32 gauge x 5/32 needle MISCELLANEOUS prucalopride 2 mg tablet 2 mg PO DAILY trazodone 100 mg tablet 100 mg PO .qhs mirtazapine 45 mg tablet 45 mg PO BEDTIME aspirin 81 mg tablet,chewable 1 tab PO .qd Rx Instructions: with breakfast clopidogrel 75 mg tablet 75 mg PO .qd colchicine 0.6 mg tablet 0.3 mg PO .qod fentanyl 12 mcg/hr patch 72 hour 1 patch transdermal Q72H metoprolol succinate 25 mg tablet extended release 24 hr 25 mg PO .qd ranolazine 500 mg tablet extended release 12 hr 500 mg PO Q12H rosuvastatin 40 mg tablet 40 mg PO .qhs verapamil 40 mg tablet 40 mg PO Q8H methocarbamol 500 mg tablet 750 mg PO Q6H PRN (Reason: Muscle spasm) hydroxyzine HCl 25 mg tablet 25 mg PO BID PRN (Reason: anxiety) topiramate 100 mg tablet 100 mg PO BID metoclopramide HCl 10 mg tablet 10 mg PO BID PRN (Reason: nausea and vomiting) levothyroxine 75 mcg tablet 75 mcg PO DAILY escitalopram oxalate 20 mg tablet 20 mg PO DAILY acetaminophen [Pain Relief (acetaminophen)] 325 mg tablet 650 mg PO Q4H PRN (Reason: pain) ergocalciferol (vitamin D2) 1,250 mcg (50,000 unit) capsule 1,250 mcg PO .Q7 meloxicam 7.5 mg tablet 7.5 mg PO DAILY PRN (Reason: pain) Qty: 3 0RF Rx Instructions: please take with food Print Language: Danish Instructions: Chest Pain (ED) Additional Instructions: follow up with Dr Alas in 2-3 days for recheck Referrals: Thomas Alas MD [Primary Care Provider, Family Practice] - 1 week Discharge Date/Time: 12/09/24 00:43
[2024-12-08] MEDS: MORPHINE SULFATE 4 MG/ML VIAL IV (21:48)
[2024-12-08 21:59] LABS: Anion Gap 14.4; Blood Urea Nitrogen 7.0 mg/dL (7.0-18.0); Calcium 8.2 mg/dL (8.5-10.1); Carbon Dioxide 25.6 mmol/L (21.0-32.0); Chloride 106 mmol/L (98-107); Estimated GFR (African America >60 (>=60 mL/min/1.73m^2); Estimated GFR (Non-African Ame >60 (>=60 mL/min/1.73m^2); Glucose 86 mg/dL (74-106); NT Pro B Type Natriuretic Pept 79.0 pg/mL (<=450.0); Potassium 4.0 mmol/L (3.5-5.1); Sodium 142 mmol/L (136-145)
[2024-12-08] MEDS: METOCLOPRAMIDE HCL 10 MG/2 ML VIAL IVP (22:26)
[2024-12-08] MEDS: DIPHENHYDRAMINE HCL 50 MG/ML VIAL 25 MG IVP (23:57)
[2024-12-09] VITALS: BP 110/66; PULSE 65; O2SAT 99
== END 2024-12-09 00:43 | disposition home or self-care (01) ==
PROVIDERS: Emergency Provider Internal Medicine; PCP Family Medicine
DX: R07.89 Other chest pain (principal); I25.2 Old myocardial infarction; Z79.899 Other long term (current) 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; R11.2 Nausea with vomiting, unspecified; K31.84 Gastroparesis; D62 Acute posthemorrhagic anemia
CPT/HCPCS: 36415; 71045; 80048; 83880; 84484; 85025; 93005; 96374; 96375; 99285; J0780; J1200; J2270; J2405; J2765

== ENCOUNTER 2024-12-15 07:39 | Outpatient (RCR) | payer MEDICAID, SELFPAY ==
[2024-11-15] MEDS: PROCHLORPERAZINE 10 MG/2 ML VIAL IV (09:00)
[2024-11-15] MEDS: DIPHENHYDRAMINE HCL 50 MG/ML VIAL IV (09:00)
[2024-11-18 09:02] VITALS: BP 122/82; PULSE 71; TEMP 36.7; O2SAT 98
[2024-11-18] MEDS: DIPHENHYDRAMINE HCL 50 MG/ML VIAL IV (09:13)
[2024-11-18] MEDS: PROCHLORPERAZINE 10 MG/2 ML VIAL IV (09:13)
[2024-11-19 08:48] VITALS: BP 122/81; PULSE 71; TEMP 36.4; O2SAT 100
[2024-11-19] MEDS: DIPHENHYDRAMINE HCL 50 MG/ML VIAL IV (08:50)
[2024-11-19] MEDS: PROCHLORPERAZINE 10 MG/2 ML VIAL IV (08:50)
[2024-11-22 08:30] VITALS: BP 118/86; PULSE 76; TEMP 36.1; O2SAT 98
[2024-11-22] MEDS: DIPHENHYDRAMINE HCL 50 MG/ML VIAL IV (08:46)
[2024-11-22] MEDS: PROCHLORPERAZINE 10 MG/2 ML VIAL IV (08:46)
[2024-11-23 10:18] VITALS: BP 122/90; PULSE 88; TEMP 36.4; O2SAT 97
[2024-11-23] MEDS: PROCHLORPERAZINE 10 MG/2 ML VIAL IV (10:24)
[2024-11-23] MEDS: DIPHENHYDRAMINE HCL 50 MG/ML VIAL IVP (10:24)
[2024-11-24 13:45] VITALS: BP 125/83; PULSE 96; TEMP 36.6; O2SAT 97
[2024-11-24] MEDS: DIPHENHYDRAMINE HCL 50 MG/ML VIAL IV (13:52)
[2024-11-24] MEDS: PROCHLORPERAZINE 10 MG/2 ML VIAL IV (13:52)
[2024-11-25] MEDS: PROCHLORPERAZINE 10 MG/2 ML VIAL IV (09:00)
[2024-11-25] MEDS: DIPHENHYDRAMINE HCL 50 MG/ML VIAL IV (09:00)
[2024-11-25 09:08] VITALS: BP 146/110; PULSE 81; TEMP 36.5; O2SAT 96
[2024-11-28 10:38] VITALS: BP 132/82; PULSE 18; TEMP 36.4; O2SAT 98
[2024-11-28] MEDS: DIPHENHYDRAMINE HCL 50 MG/ML VIAL IV (10:46)
[2024-11-28] MEDS: PROCHLORPERAZINE 10 MG/2 ML VIAL IV (10:47)
[2024-11-29 08:48] VITALS: BP 122/83; PULSE 72; TEMP 36; O2SAT 98
[2024-11-29] MEDS: DIPHENHYDRAMINE HCL 50 MG/ML VIAL IV (08:51)
[2024-11-29] MEDS: PROCHLORPERAZINE 10 MG/2 ML VIAL IV (08:51)
[2024-11-30 08:49] VITALS: BP 113/53; PULSE 65; TEMP 35.7; O2SAT 98
[2024-11-30] MEDS: PROCHLORPERAZINE 10 MG/2 ML VIAL IV (08:53)
[2024-11-30] MEDS: 0.9 % SODIUM CHLORIDE 1,000 ML 500 ML IV (08:54)
[2024-11-30] MEDS: DIPHENHYDRAMINE HCL 50 MG/ML VIAL IV (08:54)
[2024-12-01 08:42] VITALS: BP 111/77; PULSE 77; TEMP 36.1; O2SAT 99
[2024-12-01] MEDS: DIPHENHYDRAMINE HCL 50 MG/ML VIAL IV (08:55)
[2024-12-01] MEDS: PROCHLORPERAZINE 10 MG/2 ML VIAL IV (08:55)
[2024-12-02 09:00] VITALS: BP 134/85; PULSE 73; TEMP 36.8; O2SAT 98
[2024-12-02] MEDS: DIPHENHYDRAMINE HCL 50 MG/ML VIAL IV (09:04)
[2024-12-02] MEDS: PROCHLORPERAZINE 10 MG/2 ML VIAL IV (09:04)
[2024-12-02 09:19] VITALS: BP 131/90; PULSE 86; TEMP 36.8; O2SAT 99
[2024-12-03 10:47] VITALS: BP 125/91; PULSE 67; TEMP 36.7; O2SAT 99
[2024-12-03] MEDS: DIPHENHYDRAMINE HCL 50 MG/ML VIAL IV (10:49)
[2024-12-03] MEDS: PROCHLORPERAZINE 10 MG/2 ML VIAL IV (10:49)
[2024-12-03 11:06] VITALS: BP 120/81; PULSE 77; TEMP 36.8; O2SAT 99
[2024-12-04 10:35] VITALS: BP 96/50; PULSE 66; TEMP 36.1; O2SAT 99
[2024-12-04] MEDS: 0.9 % SODIUM CHLORIDE 1,000 ML 1000 ML IV (10:48)
[2024-12-04] MEDS: DIPHENHYDRAMINE HCL 50 MG/ML VIAL IV (10:49)
[2024-12-04] MEDS: PROCHLORPERAZINE 10 MG/2 ML VIAL IV (10:49)
[2024-12-05 08:39] VITALS: BP 120/79; PULSE 79; TEMP 36.6; O2SAT 98
[2024-12-05] MEDS: PROCHLORPERAZINE 10 MG/2 ML VIAL IV (08:46)
[2024-12-05] MEDS: DIPHENHYDRAMINE HCL 50 MG/ML VIAL IV (08:46)
[2024-12-06 08:30] VITALS: BP 108/62; PULSE 62; TEMP 36.2; O2SAT 98
[2024-12-06] MEDS: PROCHLORPERAZINE 10 MG/2 ML VIAL IV (08:38)
[2024-12-06] MEDS: DIPHENHYDRAMINE HCL 50 MG/ML VIAL IV (08:38)
[2024-12-07] MEDS: PROCHLORPERAZINE 10 MG/2 ML VIAL IV (08:46)
[2024-12-07] MEDS: DIPHENHYDRAMINE HCL 50 MG/ML VIAL IV (08:50)
[2024-12-07 09:00] VITALS: BP 126/79; PULSE 76; TEMP 35.8; O2SAT 98
--- NOTE | 2024-12-07 09:02 | PC.NURSE ---
0835: Pt. arrived to department for IV medications--standing orders. Pleasant and conversive. Water given per request; c/o mild nausea. Hodges intact to rt. anterior chest. Alcohol cap removed, hub scrubbed per protocol. Brisk blood return noted with aspiration and flushed easily. Meds administered as ordered; line flushed and alcohol cap applied. Denies further needs. Discharged ambulatory to private vehicle.
[2024-12-08] MEDS: PROCHLORPERAZINE 10 MG/2 ML VIAL IV (08:34)
[2024-12-08] MEDS: DIPHENHYDRAMINE HCL 50 MG/ML VIAL IV (08:38)
[2024-12-08 08:46] VITALS: BP 118/62; PULSE 62; TEMP 36; O2SAT 96
[2024-12-09 08:54] VITALS: BP 117/83; PULSE 73; TEMP 36.5; O2SAT 98
[2024-12-09] MEDS: DIPHENHYDRAMINE HCL 50 MG/ML VIAL IV (09:05)
[2024-12-09] MEDS: PROCHLORPERAZINE 10 MG/2 ML VIAL IV (09:06)
[2024-12-11 08:50] VITALS: BP 125/84; PULSE 72; TEMP 36.8; O2SAT 98
[2024-12-11] MEDS: DIPHENHYDRAMINE HCL 50 MG/ML VIAL IV (09:05)
[2024-12-11] MEDS: PROCHLORPERAZINE 10 MG/2 ML VIAL IV (09:05)
[2024-12-11] MEDS: 0.9 % SODIUM CHLORIDE 1,000 ML 1000 ML IV (09:07)
--- NOTE | 2024-12-11 09:23 | PC.NURSE ---
Patient in to receive iv fluids for hydration. Patient has chosen to only receive 1 liter instead of the 2 liters that was on order as needed.
[2024-12-12 08:35] VITALS: BP 129/78; PULSE 79; TEMP 36.4; O2SAT 97
[2024-12-12] MEDS: 0.9 % SODIUM CHLORIDE 1,000 ML 1000 ML IV (08:39)
[2024-12-12] MEDS: DIPHENHYDRAMINE HCL 50 MG/ML VIAL IV (08:40)
[2024-12-12] MEDS: PROCHLORPERAZINE 10 MG/2 ML VIAL IV (08:40)
--- NOTE | 2024-12-12 09:17 | PC.NURSE ---
upon arrival ...patient states she has been nauseated from antibiotics she is taking. Patient requested iv bolus of saline but only wanted 1 bag not 2
[2024-12-13 08:00] VITALS: BP 126/84; PULSE 78; TEMP 36; O2SAT 97
[2024-12-13] MEDS: PROCHLORPERAZINE 10 MG/2 ML VIAL IV (08:04)
[2024-12-13] MEDS: DIPHENHYDRAMINE HCL 50 MG/ML VIAL IV (08:04)
[2024-12-13] MEDS: FERRIC CARBOXYMALTOSE 750 MG in 0.9 % SODIUM CHLORIDE 250 ML 795 MG IV (08:08)
[2024-12-15] MEDS: PROCHLORPERAZINE 10 MG/2 ML VIAL IV (08:34)
[2024-12-15] MEDS: DIPHENHYDRAMINE HCL 50 MG/ML VIAL IV (08:35)
[2024-12-15 08:38] VITALS: BP 108/72; PULSE 66; TEMP 36.6; O2SAT 100
== END 2024-12-15 23:59 | disposition home or self-care (01) ==
LOC: INF 07:39
PROVIDERS: PCP Family Medicine; Visit Provider Family Medicine
DX: R11.2 Nausea with vomiting, unspecified (principal); D62 Acute posthemorrhagic anemia
CPT/HCPCS: 51702; 83540; 83550; 96361; 96365; 96374; 96375; 96523; G0463; J0780; J1200; J1439

== ENCOUNTER 2024-12-16 22:34 | Emergency (ER) | payer MEDICAID, SELFPAY ==
--- OUTSIDE RECORDS SUMMARY | 2024-12-02 10:18 | XMS_ITS | Encounter Summary ---
Author Organization [facility] 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 Pt denies V/D. Encounter Details DateTypeDepartmentCare Team (Latest Contact Info)Hhpbopaafne96/18/2025 10:18 AM EDT - 12/02/2024 12:37 PM EDTEmer[facility] [address] [place], [place] [id number] Gross hematuria (Primary Dx); Painful bladder spasm; Right flank pain Discharge Disposition: Home or Self Care Social History Tobacco UseTypesPacks/DayYears UsedDateSmoking Tobacco: NeverSmokeless Tobacco: NeverAlcohol UseStandard Drinks/WeekCommentsNot Currently0 (1 standard drink = 0.6 oz pure alcohol)AUDIT-CAnswerDate RecordedQ1: How often do you have a drink containing alcohol?Never12/14/2022Q2: How many drinks containing alcohol do you have on a typical day when you are drinking?Patient does not drink10/30/2023Q3: How often do you have six or more drinks on one occasion?Never12/14/2022UDIT-C AnswerDate RecordedQ1: How often do you have a drink containing alcohol?Never 12/02/2024Q2: How many drinks containing alcohol do you have on a typical day when you are drinking?Patient does not drink12/02/2024Q3: How often do you have six or more drinks on one occasion?Never12/02/2024Interpersonal Safety Domain Source: IP Abuse ScreeningAnswerDate RecordedPhysical gvfsoOezioa92/18/2025 Verbal xexhwTtuvqw37/18/2025Emotional strhdCcjnjk97/18/2025Financial abuseDenies 12/02/2024Sexual nzwisZhhmfz00/18/2025CommentsNoSex and Gender InformationValueDate RecordedSex Assigned at BirthNot on fileLegal SexFemale 04/12/2013 2:41 PM ESTGender IdentityNot on fileSexual OrientationNot on file documented as of this encounter Last Filed Vital Signs Vital SignReadingTime TakenCommentsBlood Txkpurxd244/8512/02/2024 12:36 PM EDT Kvonb375212/02/2024 12:36 PM PJAHixeanrjbli51.8 ??C (98.2 ??F)12/02/2024 10:14 AM EDTRespiratory Trxi9121 10:14 AM EDTOxygen Jmfnyakrve407%12/02/2024 12:36 PM EDTInhaled Oxygen Concentration--Owdzay17.6 kg (180 lb)12/02/2024 10:14 AM VUQSlqqse646.6 cm (5' 6 )12/02/2024 10:14 AM EDTBody Mass Index29.05 12/02/2024 10:14 AM EDTdocumented in this encounter Functional Status documented as of this encounter Discharge Instructions * Discharge Instructions* Jose Angel Perez PA-C - 12/02/2024 12:30 PM EDT Call your urologist on Wednesday to discuss the hematuria in the long catheter and to see if they would like to follow-up with you any earlier. * Attachments The following attachments cannot be sent through Care Everywhere. * Hematuria (Polish) documented in this encounter Medications at Time [...] MG tablet Take 1 tablet by mouth waziimh20 ranolazine (RANEXA) 500 MG extended release tablet [...] 1 capsule by mouth 2 times daily phenazopyridine (PYRIDIUM) 200 MG tablet Take 1 tablet by mouth 3 times daily as needed for Pain (bladder spasm/pain) 6 tablet metoclopramide (REGLAN) 10 MG tablet Take 1 tablet by mouth 2 times daily as ovbiik04documented as of this encounter Plan of Treatment Not on file documented as of this encounter Procedures Procedure NamePriorityDate/TimeAssociated DiagnosisCommentsURINALYSIS WITH REFLEX TO SBNFRYTPXKZ16/18/2025 11:54 AM EDT MICROSCOPIC LENXKZFBCCWosidxx54/18/2025 11:[address] ABDOMEN PELVIS WO GEFXCRKNDHYZ76/18/2025 11:30 AM EDT CBC WITH AUTO UFOWCCIAGDVZALTP61/18/2025 11:12 AM EDT FJQYOLIDFWTVE90/18/2025 11:12 AM EDT LACTIC YXVRPPFI77/18/2025 11:12 AM EDT COMPREHENSIVE METABOLIC XXYXNRSSH78/18/2025 11:12 AM EDT documented in this encounter Results * Microscopic Urinalysis (12/02/2024 11:54 AM EDT)ComponentValueRef RangeTest MethodAnalysis TimePerformed AtPathologist SignatureWBC, UA2 TO 50 - 5 /HPF 12/02/2024 11:54 AM [facility] LABRBC, UA20 TO 500 - 2 /HPF12/02/2024 11:54 AM [facility] LABEpithelial Cells, UA0 TO 20 - 25 /HPF12/02/2024 11:54 AM [facility] Specimen (Source)Anatomical Location / LateralityCollection Method / Volume Collection TimeReceived Time12/02/2024 11:54 AM EDT1 11:57 AM EDT Narrative Authorizing ProviderResult TypeResult StatusDavid Chris DUNCAN ORDERABLES Final ResultPerforming OrganizationAddressCity/State/ZIP CodePhone Number [facility] [address] [phone] * (ABNORMAL) Urinalysis with Reflex to Culture (12/02/2024 11:54 AM EDT) ComponentValueRef RangeTest MethodAnalysis TimePerformed AtPathologist SignatureColor, UARed(A)Fcwpne3212/02/2024 11:54 AM [facility] LABTurbidity GCMymehMxufj27/18/2025 11:54 AM [facility] LABGlucose, UrNEGATIVENEGATIVE mg/dL12/02/2024 11:54 AM [facility] LABBilirubin, QuyssTFXSRHDNRLSKGVHF01/18/2025 11:54 AM [facility] LABKetones, UrineNEGATIVENEGATIVE mg/dL 12/02/2024 11:54 AM [facility] LABSpecific [place], UA 1.0101.010 - 1.5893312/02/2024 11:54 AM [facility] LABUrine Hgb3+(A)IZJXEGBL52/18/2025 11:54 AM [facility] LABpH, Urine7.05.0 - 9.010 11:54 AM [facility] Protein, UATRACE(A)NEGATIVE mg/dL12/02/2024 11:54 AM [facility] LABUrobilinogen, UrineNormal0.0 - 1.0 EU/dL12/02/2024 11:54 AM EDT [facility] LABNitrite, AemsoSRJUIHCCUGPXAGHY49/18/2025 11:54 AM [facility] LABLeukocyte Esterase, UrineNEGATIVE INTJKXXX53/18/2025 11:54 AM [facility] LABSpecimen (Source)Anatomical Location / LateralityCollection Method / VolumeCollection TimeReceived TimeURINE SPECIMEN / Gjqcliu7112/02/2024 11:54 AM EDT1 11:57 AM EDT Narrative Authorizing ProviderResult TypeResult StatusDavid Chris DUNCAN ORDERABLES Final ResultPerforming OrganizationAddressCity/State/ZIP CodePhone Number [facility] [address] [phone] * CT ABDOMEN PELVIS WO CONTRAST Additional Contrast? None (12/02/2024 11:30 AM EDT)Anatomical RegionLateralityModalityAbdomen, Pelvis, HipComputed Tomography Specimen (Source)Anatomical Location / LateralityCollection Method / Volume Collection TimeReceived Time12/02/2024 12:15 PM EDT Impressions 12/02/2024 12:18 PM EDT 1. No acute findings in the abdomen or pelvis. Narrative 12/02/2024 12:18 PM EDT EXAM: CT ABDOMEN AND PELVIS WITHOUT CONTRAST 12/02/2024 11:30:06 AM TECHNIQUE: CT of the abdomen and pelvis was performed without the administration of intravenous contrast. Multiplanar reformatted images are provided for review. Automated exposure control, iterative reconstruction, and/or weight-based adjustment of the mA/kV was utilized to reduce the radiation dose to as low as reasonably achievable. COMPARISON: CT scan of the abdomen and pelvis 07/27/2021. CLINICAL HISTORY: RIGHT FLANK PAIN, ABD PAIN NV. FINDINGS: LOWER CHEST: No acute abnormality. LIVER: Multiple hepatic cysts are stable in appearance. GALLBLADDER AND BILE DUCTS: Status post cholecystectomy. No biliary ductal dilatation. SPLEEN: No acute abnormality. PANCREAS: No acute abnormality. ADRENAL GLANDS: No acute abnormality. KIDNEYS, URETERS AND BLADDER: No stones in the kidneys or ureters. No hydronephrosis. No perinephric or periureteral stranding. Long catheter is present. GI AND BOWEL: Status post gastric bypass. Clips near the cecum, correlate with surgical history. There is no bowel obstruction. PERITONEUM AND RETROPERITONEUM: No ascites. No free air. VASCULATURE: Aorta is normal in caliber. LYMPH NODES: No lymphadenopathy. REPRODUCTIVE ORGANS: No acute abnormality. BONES AND SOFT TISSUES: No acute osseous abnormality. No focal soft tissue abnormality. Procedure Note Willis Santizo MD - 12/02/2024 EXAM: CT ABDOMEN AND PELVIS WITHOUT CONTRAST 12/02/2024 11:30:06 AM TECHNIQUE: CT of the abdomen and pelvis was performed without the administration of intravenous contrast. Multiplanar reformatted images are provided forreview. Automated exposure control, iterative reconstruction, and/orweight-based adjustment of the mA/kV was utilized to reduce the radiation dose to as low as reasonably achievable. COMPARISON: CT scan of the abdomen and pelvis 07/27/2021. CLINICAL HISTORY: RIGHT FLANK PAIN, ABD PAIN NV. FINDINGS: LOWER CHEST: No acute abnormality. LIVER: Multiple hepatic cysts are stable in appearance. GALLBLADDER AND BILE DUCTS: Status post cholecystectomy. No biliary ductal dilatation. SPLEEN: No acute abnormality. PANCREAS: No acute abnormality. ADRENAL GLANDS: No acute abnormality. KIDNEYS, URETERS AND BLADDER: No stones in the kidneys or ureters. No hydronephrosis. No perinephric or periureteral stranding. Long catheter is present. GI AND BOWEL: Status post gastric bypass. Clips near the cecum, correlate with surgical history. There is no bowel obstruction. PERITONEUM AND RETROPERITONEUM: No ascites. No free air. VASCULATURE: Aorta is normal in caliber. LYMPH NODES: No lymphadenopathy. REPRODUCTIVE ORGANS: No acute abnormality. BONES AND SOFT TISSUES: No acute osseous abnormality. No focal soft tissue abnormality. IMPRESSION: 1. No acute findings in the abdomen or pelvis. Authorizing ProviderResult TypeResult StatusDavid Chris PA-CIMG CT ORDERABLES Final Result * Magnesium (12/02/2024 11:12 AM EDT)ComponentValueRef RangeTest MethodAnalysis TimePerformed AtPathologist SignatureMagnesium1.81.6 - 2.6 mg/dL12/02/2024 11:12 AM [facility] LABSpecimen (Source)Anatomical Location / LateralityCollection Method / VolumeCollection TimeReceived Time BloodBLOOD SPECIMEN / Tfxrqxo7412/02/2024 11:12 AM EDT1 11:14 AM EDT Narrative Authorizing ProviderResult TypeResult StatusDavid Chris PA-CCHEMISTRY ORDERABLESFinal ResultPerforming OrganizationAddressCity/State/ZIP CodePhone Number [facility] [address] [place] [address] * Lactic Acid (12/02/2024 11:12 AM EDT)ComponentValueRef RangeTest Method Analysis TimePerformed AtPathologist SignatureLactic Acid0.80.5 - 2.2 mmol/L 12/02/2024 11:12 AM [facility] LABSpecimen (Source) Anatomical Location / LateralityCollection Method / VolumeCollection Time Received TimeBloodBLOOD SPECIMEN / Cufycve3812/02/2024 11:12 AM EDT1 11:14 AM EDT Narrative Authorizing ProviderResult TypeResult StatusDavid [facility] Campuswilmar PA-CCHEMISTRY ORDERABLESFinal ResultPerforming OrganizationAddressCity/State/[facility] CodePhone Number [facility] [address] [place] [address] * (ABNORMAL) CBC with Auto Differential (12/02/2024 11:12 AM EDT)ComponentValue Ref RangeTest MethodAnalysis TimePerformed AtPathologist SignatureWBC4.43.5 - 11.3 k/uL12/02/2024 11:12 AM [facility] LABRBC3.47(L)3.95 - 5.11 m/uL12/02/2024 11:12 AM [facility] LABHemoglobin 10.1(L)11.9 - 15.1 g/dL12/02/2024 11:12 AM [facility] Wxfyjmnbhh72.5(L)36.3 - 47.1 %12/02/2024 11:12 AM [facility] QURGAZ54.982.6 - 102.9 fL12/02/2024 11:12 AM [facility] OQYSGQ86.125.2 - 33.5 pg12/02/2024 11:12 AM [facility] NIQGDNB11.128.4 - 34.8 g/dL12/02/2024 11:12 AM [facility] JVUPXY83.811.8 - 14.4 %12/02/2024 11:12 AM [facility] YOHDjxayktth834364 - 453 k/uL12/02/2024 11:12 AM [facility] WVNQTI41.98.1 - 13.5 fL12/02/2024 11:12 AM [facility] LABNRBC Automated0.00.0 per 100 WBC12/02/2024 11:12 AM [facility] LABNeutrophils %71(H)36 - 65 %12/02/2024 11:12 AM [facility] LABLymphocytes %22(L)24 - 43 %12/02/2024 11:12 AM [facility] LABMonocytes %53 - 12 %12/02/2024 11:12 AM [facility] LABEosinophils %11 - 4 %12/02/2024 11:12 AM [facility] LABBasophils %10 - 2 %12/02/2024 11:12 AM [facility] LABImmature Granulocytes %00 %12/02/2024 11:12 AM [facility] LABNeutrophils Absolute3.131.50 - 8.10 k/uL 12/02/2024 11:12 AM [facility] LABLymphocytes Absolute 0.95(L)1.10 - 3.70 k/uL12/02/2024 11:12 AM [facility] Monocytes Absolute0.230.10 - 1.20 k/uL12/02/2024 11:12 AM [facility] LABEosinophils Absolute0.050.00 - 0.44 k/uL12/02/2024 11:12 AM [facility] LABBasophils Absolute0.030.00 - 0.20 k/uL 12/02/2024 11:12 AM [facility] LABImmature Granulocytes Absolute<0.030.00 - 0.30 k/uL12/02/2024 11:12 AM [facility] LABSpecimen (Source)Anatomical Location / LateralityCollection Method / VolumeCollection TimeReceived TimeBloodBLOOD SPECIMEN / Bvjcjwp5112/02/2024 11:12 AM EDT1 11:14 AM EDT Narrative Authorizing ProviderResult TypeResult StatusDavid Chris INMAN-CHEMATOLOGY ORDERABLESFinal ResultPerforming OrganizationAddressCity/State/ZIP CodePhone Number [facility] [address] [phone] * (ABNORMAL) CMP (12/02/2024 11:12 AM EDT)ComponentValueRef RangeTest Method Analysis TimePerformed AtPathologist LkmizrcmwMcguiw329814 - 145 mmol/L 12/02/2024 11:12 AM [facility] LABPotassium3.93.7 - 5.3 mmol/L1 11:12 AM [facility] VROSiqffnlx72080 - 107 mmol/L1 11:12 AM [facility] NEMRE38620 - 31 mmol/L1 11:12 AM [facility] LABAnion Gap99 - 16 mmol/L1 11:12 AM [facility] FFEXlnyech1601 - 99 mg/dL12/02/2024 11:12 AM [facility] CSEZPV53 - 20 mg/dL 12/02/2024 11:12 AM [facility] LABCreatinine0.70.50 - 0.90 mg/dL12/02/2024 11:12 AM [facility] LABEst, Glom Filt Rate>90>60 mL/min/1.89v82812/02/2024 11:12 AM [facility] LABComment: ? These results are not intended for [...] therapy that affects renal tubular secretion. BUN/Creatinine Nibna257 - 11:12 AM [facility] LABCalcium8.4(L)8.6 - 10.4 mg/dL12/02/2024 11:12 AM [facility] LABTotal Protein6.0(L)6.6 - 8.7 g/dL12/02/2024 11:12 AM [facility] LABAlbumin3.73.5 - 5.2 g/dL12/02/2024 11:12 AM [facility] LABAlbumin/Globulin Ratio1.61.0 - 2.510 11:12 AM [facility] LABTotal Bilirubin0.30.00 - 1.20 mg/dL12/02/2024 11:12 AM [facility] LABAlkaline Lugcjhuvoqo8138 - 104 U/L 12/02/2024 11:12 AM [facility] QQLNFH85(H)10 - 35 U/L 12/02/2024 11:12 AM [facility] EZOWTK38(H)10 - 35 U/L 12/02/2024 11:12 AM [facility] LABSpecimen (Source) Anatomical Location / LateralityCollection Method / VolumeCollection Time Received TimeBloodBLOOD SPECIMEN / Kmsxvdo2312/02/2024 11:12 AM EDT1 11:14 AM EDT Narrative Authorizing ProviderResult TypeResult StatusDavid Chris GONZALEZPROMEDICA DEFIANCE REGIONAL HOSPITALEMISTRY ORDERABLESFinal ResultPerforming OrganizationAddressCity/State/ZIP CodePhone Number [facility] [address] [place] [address], [facility] [phone] documented in this encounter Visit Diagnoses Diagnosis Gross hematuria- Primary Painful bladder spasm Other symptoms involving urinary system Right flank pain Abdominal pain, unspecified site documented in this encounter Administered Medications Medication OrderMAR ActionAction DateDoseRateSite diphenhydrAMINE (BENADRYL) injection 25 mg 25 mg, IntraVENous, ONCE, 1 dose, On 12/02/24 at 1115, IV Push at rate not to exceed 25 mg/min. Given12/02/2024 11:15 AM EDT25 mg fentaNYL (SUBLIMAZE) injection 50 mcg 50 mcg, IntraVENous, ONCE, 1 dose, On 12/02/24 at 1115 Given12/02/2024 11:17 AM EDT50 mcg morphine sulfate (PF) injection 4 mg 4 mg, IntraVENous, ONCE, 1 dose, On 12/02/24 at 1200, If oral and IV narcotics ordered, use oral first and only use IV if oral is ineffective or cannot take oral. Do Not give oral and IV within 1hour of each other unless specifically ordered. Given12/02/2024 12:06 PM EDT4 mg prochlorperazine (COMPAZINE) injection 10 mg 10 mg, IntraVENous, ONCE, 1 dose, On 12/02/24 at 1115, If administering IV push, administer at a maximum rate of 5 mg/minute. Patients should remain lying down following administration and be reassessed for relief of nausea and presence of hypotension. Patients should be assisted the first timethey get up after administration. Given12/02/2024 11:15 AM EDT10 mg sodium chloride 0.9 % bolus 1,000 mL 1,000 mL (12.3 mL/kg), IntraVENous, at 495.9 mL/hr, Administer over 121 Minutes, ONCE, On 12/02/24 at 1115, For 1 dose New Bag12/02/2024 11:14 AM EDT1,000 xYu347.9 mL/hrdocumented in this encounter Active and Recently Administered Medications Times are shown in EDT.Medication Order diphenhydrAMINE (BENADRYL) injection 25 mg (COMPLETED) 25 mg, IntraVENous, ONCE, 1 dose, On 12/02/24 at 1115, IV Push at rate not to exceed 25 mg/min. * 1115 (Given - Provider: Honorio Sapp RN) fentaNYL (SUBLIMAZE) injection 50 mcg (COMPLETED) 50 mcg, IntraVENous, ONCE, 1 dose, On 12/02/24 at 1115 * 1117 (Given - Provider: Honorio Sapp RN) morphine sulfate (PF) injection 4 mg (COMPLETED) 4 mg, IntraVENous, ONCE, 1 dose, On 12/02/24 at 1200, If oral and IV narcotics ordered, use oral first and only use IV if oral is ineffective or cannot take oral. Do Not give oral and IV within 1hour of each other unless specifically ordered. * 1206 (Given - Provider: Honorio Sapp RN) prochlorperazine (COMPAZINE) injection 10 mg (COMPLETED) 10 mg, IntraVENous, ONCE, 1 dose, On 12/02/24 at 1115, If administering IV push, administer at a maximum rate of 5 mg/minute. Patients should remain lying down following administration and be reassessed for relief of nausea and presence of hypotension. Patients should be assisted the first timethey get up after administration. * 1115 (Given - Provider: Honorio Sapp RN) sodium chloride 0.9 % bolus 1,000 mL (COMPLETED) 1,000 mL (12.3 mL/kg), IntraVENous, at 495.9 mL/hr, Administer over 121 Minutes, ONCE, On 12/02/24 at 1115, For 1 dose * 1114 (New Bag - Provider: Honorio Sapp RN) * 1206 (Stopped - Provider: Honorio Sapp RN) documented in this encounter Care Teams Team MemberRelationshipSpecialtyStart DateEnd Thomas Alas MD [address] [id number] PCP - GeneralFamily Medicine11/08/24documented as of this encounter
--- OUTSIDE RECORDS SUMMARY | 2024-12-04 14:32 | XMS_ITS | Encounter Summary ---
Author Organization Benjy Lewis [facility] Address [address], [address] [place] [address] Care Team Providers Care Geometrician Name Role Phone Thomas Alas MD Primary Care Provider [phone] Reason for Visit * ReasonCommentsHematuriaPt had long catheter placed 2 weeks ago for gross hematuria and urinary retention. Followed up with her urologist in [place] and scheduled for removal this Wednesday. Started having severe pain and increased bleeding with clots over the weekend. Called back to urology and sent to ER. Encounter Details DateTypeDepartmentCare Team (Latest Contact Info)Iidmaydooyh11/20/2025 2:32 PM EDT - 12/04/2024 6:24 PM [facility] [place] [facility] [address] [place], [place] [id number] Hematuria, unspecified type (Primary Dx) Discharge Disposition: [...] Safety Domain Source: IP Abuse ScreeningAnswerDate RecordedPhysical stgoeYpxcrf11/18/2025 Verbal sodhcPshgli03/18/2025Emotional joqesTjtexb52/18/2025Financial abuseDenies 12/02/2024Sexual dytunPbgwty67/18/2025CommentsNoSex and Gender InformationValueDate RecordedSex Assigned at BirthNot on fileLegal SexFemale 04/12/2013 2:41 PM ESTGender IdentityNot on fileSexual OrientationNot on file documented as of this encounter Last Filed Vital Signs Vital SignReadingTime TakenCommentsBlood Oilckjoo271/4612/04/2024 6:01 PM EDT Mndji000112/04/2024 2:30 PM QCDDjtddtmposx30.7 ??C (98.1 ??F)12/04/2024 2:30 PM EDTRespiratory Oqsw5821 2:30 PM EDTOxygen Njhsstxjnj44%12/04/2024 6:01 PM EDTInhaled Oxygen Concentration--Weight--Height--Body Mass Index--documented [...] be sent through Care Everywhere. * Hematuria (French) documented in this encounter Medications at Time [...] MG tablet Take 1 tablet by mouth qlqeqqh67/ ranolazine (RANEXA) 500 MG extended release tablet [...] DiagnosisCommentsCT UROGRAMSTAT 12/04/2024 4:29 PM EDT MICROSCOPIC CFSLQPOVIREmpuvow73/20/2025 2:55 PM EDT LJLFDQQLLRALFD65/20/2025 2:55 PM EDT CULTURE, LBNWXCXIL75/20/2025 2:55 PM EDT CBC WITH AUTO TZWFVTTBENCHWDDZ02/20/2025 2:53 PM EDT PROTIME-WNPFDQA3912/04/2024 2:53 PM EDT BASIC METABOLIC RFZWHQNPK49/20/2025 2:53 PM EDT documented in this encounter [...] change noted. Authorizing ProviderResult TypeResult StatusMarciemily Marion COMMERCIAL PLUMBER - CNPIMG CT ORDERABLESFinal Result * (ABNORMAL) Culture, Urine (12/04/2024 2:55 PM EDT)ComponentValueRef RangeTest MethodAnalysis TimePerformed AtPathologist SignatureSpecimen Description.CLEAN CATCH URINE12/04/2024 2:55 PM EDST[facility] LABSpecial RequestsSite: Urine12/04/2024 2:55 PM [facility] CulturePSEUDOMONAS FLUORESCENS >100,000 CFU/ML(A)12/04/2024 2:55 PM ED[facility] LABORATORIESCultureSTENOTROPHOMONAS (XANTHOMONAS) MALTOPHILIA >100,000 CFU/ML (A)12/04/2024 2:55 PM EDGALION [facility] LABORATORIESSpecimen (Source)Anatomical Location / LateralityCollection Method / VolumeCollection TimeReceived Time UrineURINE SPECIMEN / Dpywljc5312/04/2024 2:55 PM EDT1 6:26 PM EDT Narrative OrganismAntibioticMethodSusceptibilityPseudomonas fluorescenslevofloxacin BACTERIAL SUSCEPTIBILITY PANEL SANDHYA 0.5: Sensitive Pseudomonas fluorescenspiperacillin-tazobactamBACTERIAL SUSCEPTIBILITY PANEL SANDHYA 8: Sensitive Stenotrophomonas maltophilialevofloxacinBACTERIAL SUSCEPTIBILITY PANEL SANDHYA 0.25: Sensitive Stenotrophomonas maltophiliatrimethoprim-sulfamethoxazoleBACTERIAL SUSCEPTIBILITY PANEL SANDHYA <=20: Sensitive Authorizing ProviderResult TypeResult StatusMarpapa Marion COMMERCIAL PLUMBER - [facility] MICROBIOLOGY - GENERAL ORDERABLESFinal ResultPerforming OrganizationAddress City/State/ZIP CodePhone Number [facility] [address] [place] [address], [facility] [phone] [place] [address], [facility] [phone] * (ABNORMAL) Microscopic Urinalysis (12/04/2024 2:55 PM EDT)ComponentValueRef RangeTest MethodAnalysis TimePerformed AtPathologist SignatureWBC, UA2 TO 50 - 5 /HPF12/04/2024 2:55 PM [facility] LABRBC, UAGREATER THAN 1000 - 2 /HPF12/04/2024 2:55 PM [facility] Epithelial Cells, UA0 TO 20 - 25 /HPF12/04/2024 2:55 PM [facility] LABBacteria, UA2+(A)None12/04/2024 2:55 PM [facility] LABSpecimen (Source)Anatomical Location / LateralityCollection Method / VolumeCollection TimeReceived Time12/04/2024 2:55 PM EDT1 3:03 PM EDT Narrative Authorizing ProviderResult TypeResult StatusMarciemily Marion COMMERCIAL PLUMBER - ERIS ORDERABLESFinal ResultPerforming OrganizationAddressCity/State/ZIP CodePhone Number [facility] [address] [place] [id number], [facility] [phone] * (ABNORMAL) Urinalysis (12/04/2024 2:55 PM EDT)ComponentValueRef RangeTest MethodAnalysis TimePerformed AtPathologist SignatureColor, UARed(A)Yellow 12/04/2024 2:55 PM [facility] LABTurbidity UAClearClear 12/04/2024 2:55 PM [facility] LABGlucose, UrNEGATIVE NEGATIVE mg/dL12/04/2024 2:55 PM [facility] LABBilirubin, WwwxqSPYDNVEXCPALFNXN93/20/2025 2:55 PM [facility] Ketones, Urine1+(A)NEGATIVE mg/dL12/04/2024 2:55 PM [facility] LABSpecific [place], UA1.0201.010 - 1.5341112/04/2024 2:55 PM [facility] LABUrine Hgb3+(A)SFLOPQIJ31/20/2025 2:55 PM [facility] LABpH, Urine7.05.0 - 9.010 2:55 PM [facility] LABProtein, UA2+(A)NEGATIVE mg/dL12/04/2024 2:55 PM EDT [facility] LABUrobilinogen, UrineELEVATED0.0 - 1.0 EU/dL 12/04/2024 2:55 PM [facility] LABNitrite, UrinePOSITIVE (A)IKIGIXZH54/20/2025 2:55 PM [facility] LABLeukocyte Esterase, UrineSMALL(A)PTYRTDQU52/20/2025 2:55 PM [facility] LABSpecimen (Source)Anatomical Location / LateralityCollection Method / VolumeCollection TimeReceived TimeUrineURINE SPECIMEN / Esxyeux4912/04/2024 2:55 PM EDT1 3:03 PM EDT Narrative Authorizing ProviderResult TypeResult StatusMarpapa Marion COMMERCIAL PLUMBER - CNPURINE ORDERABLESFinal ResultPerforming OrganizationAddressCity/State/ZIP CodePhone Number [facility] [address] [phone] * Protime-INR (12/04/2024 2:53 PM EDT)ComponentValueRef RangeTest MethodAnalysis TimePerformed AtPathologist CnykfuauvTjhqpoj21.112.0 - 15.0 sec12/04/2024 2:53 PM [facility] LABINR1. 2:53 PM [facility] LABComment: ? Therapeutic Range: Moderate Anticoagulant Intensity: INR = 2.0-3.0 High Anticoagulant Intensity: INR = 2.5-3.5 Specimen (Source)Anatomical Location / LateralityCollection Method / Volume Collection TimeReceived TimeBloodBLOOD SPECIMEN / Crdojpd2712/04/2024 2:53 PM EDT 12/04/2024 3:02 PM EDT Narrative Authorizing ProviderResult TypeResult StatusNeeta Marion APRN - DOCKING SAW OPERATOR HEMATOLOGY ORDERABLESFinal ResultPerforming OrganizationAddressCity/State/ZIP CodePhone Number [facility] [address] [place] [phone] [phone] * (ABNORMAL) BMP (12/04/2024 2:53 PM EDT)ComponentValueRef RangeTest Method Analysis TimePerformed AtPathologist BdsowyoegEiealy003074 - 145 mmol/L 12/04/2024 2:53 PM [facility] LABPotassium3.93.7 - 5.3 mmol/L1 2:53 PM [facility] XENVidbolxg131(H)98 - 107 mmol/L1 2:53 PM [facility] NJYWH05450 - 31 mmol/L1 2:53 PM [facility] LABAnion Gap8(L)9 - 16 mmol/L1 2:53 PM [facility] UBDPmsxjez3513 - 99 mg/dL12/04/2024 2:53 PM [facility] IMQPSK44 - 20 mg/dL 12/04/2024 2:53 PM [facility] LABCreatinine0.60.50 - 0.90 mg/dL12/04/2024 2:53 PM [facility] LABEst, Glom Filt Rate >90>60 mL/min/1.26h07612/04/2024 2:53 PM [facility] Comment: ? These results are [...] therapy that affects renal tubular secretion. BUN/Creatinine Kuwlv743 - 2:53 PM [facility] LABCalcium8.2(L)8.6 - 10.4 mg/dL12/04/2024 2:53 PM [facility] LABSpecimen (Source)Anatomical Location / LateralityCollection Method / VolumeCollection TimeReceived TimeBloodBLOOD SPECIMEN / Yqcfemc9712/04/2024 2:53 PM EDT1 3:02 PM EDT Narrative Authorizing ProviderResult TypeResult StatusMarciemily Marion COMMERCIAL PLUMBER - CNPCHEMISTRY ORDERABLESFinal ResultPerforming OrganizationAddressCity/State/ZIP CodePhone Number [facility] [address] [place] [address], [facility] [phone] * (ABNORMAL) CBC with Auto Differential (12/04/2024 2:53 PM EDT)ComponentValue Ref RangeTest MethodAnalysis TimePerformed AtPathologist SignatureWBC4.13.5 - 11.3 k/uL12/04/2024 2:53 PM [facility] LABRBC3.21(L)3.95 - 5.11 m/uL12/04/2024 2:53 PM [facility] LABHemoglobin9.4 (L)11.9 - 15.1 g/dL12/04/2024 2:53 PM [facility] LAB Penqsyeidg43.2(L)36.3 - 47.1 %12/04/2024 2:53 PM [facility] XSEKPE82.982.6 - 102.9 fL12/04/2024 2:53 PM [facility] XRPEZZ70.325.2 - 33.5 pg12/04/2024 2:53 PM [facility] BDMYCQN26.328.4 - 34.8 g/dL12/04/2024 2:53 PM [facility] UOHIQI54.711.8 - 14.4 %12/04/2024 2:53 PM [facility] GUXYdvhocinv723624 - 453 k/uL12/04/2024 2:53 PM [facility] EKHDCO96.68.1 - 13.5 fL12/04/2024 2:53 PM [facility] LABNRBC Automated0.00.0 per 100 WBC12/04/2024 2:53 PM [facility] LABNeutrophils %5136 - 65 %12/04/2024 2:53 PM [facility] LABLymphocytes %3724 - 43 %12/04/2024 2:53 PM [facility] LABMonocytes %93 - 12 %12/04/2024 2:53 PM [facility] LABEosinophils %21 - 4 %12/04/2024 2:53 PM [facility] LABBasophils %10 - 2 %12/04/2024 2:53 PM [facility] LABImmature Granulocytes %00 %12/04/2024 2:53 PM [facility] LABNeutrophils Absolute2.091.50 - 8.10 k/uL 12/04/2024 2:53 PM [facility] LABLymphocytes Absolute1.49 1.10 - 3.70 k/uL12/04/2024 2:53 PM [facility] LAB Monocytes Absolute0.360.10 - 1.20 k/uL12/04/2024 2:53 PM [facility] LABEosinophils Absolute0.080.00 - 0.44 k/uL12/04/2024 2:53 PM [facility] LABBasophils Absolute0.040.00 - 0.20 k/uL 12/04/2024 2:53 PM [facility] LABImmature Granulocytes Absolute<0.030.00 - 0.30 k/uL12/04/2024 2:53 PM [facility] LABSpecimen (Source)Anatomical Location / LateralityCollection Method / VolumeCollection TimeReceived TimeBloodBLOOD SPECIMEN / Mfuwswl0712/04/2024 2:53 PM EDT1 3:02 PM EDT Narrative Authorizing ProviderResult TypeResult StatusMarciemily Marion APRN - DOCKING SAW OPERATOR HEMATOLOGY ORDERABLESFinal ResultPerforming OrganizationAddressCity/State/ZIP CodePhone Number [facility] [address] [phone] documented in this encounter Visit Diagnoses Diagnosis [...] Wed12/04/24 at 1630, Other Given12/04/2024 4:30 PM XYH430 mLs ondansetron (ZOFRAN) injection 4 mg 4 mg, IntraVENous, ONCE, 1 dose, On Wed12/04/24 at 1515 Given12/04/2024 3:46 PM EDT4 mg phenazopyridine (PYRIDIUM) tablet 200 mg 200 mg, Oral, Once, 1 dose, On Wed12/04/24 at 1815, Take with food. May cause discoloration of urine. Given12/04/2024 6:18 PM QSV811 mg prochlorperazine (COMPAZINE) injection 10 mg 10 [...] 1515 * 1546 (Given - Provider: Nahed Suero, RN) Medication Order51 iopamidol (ISOVUE-370) 76 % injection 120 mL (COMPLETED) 120 mL, IntraVENous, IMG ONCE PRN, 1 dose, Starting on Wed12/04/24 at 1629, Until Wed12/04/24 at 1630, Other * 1630 (Given - Provider: Philippe Casas) documented in this encounter Care Teams Team MemberRelationshipSpecialtyStart DateEnd Thomas Alas MD [address] [place] [address] PCP - GeneralFamily Medicine11/08/24documented as of this encounter
--- OUTSIDE RECORDS SUMMARY | 2024-12-06 11:20 | XMS_ITS | Encounter Summary ---
Author Organization [facility] Address [address] [place] [address] Care Team Providers Care Artistic Associate Name Role Phone Thomas Alas MD Primary Care Provider [phone] Reason for Visit * ReasonCommentsFollow-upPatient is here today for a follow up [facility] admission and for surgery clearance. Patient is having an ERCP with Dr. Bellamy at [facility]. Needs to stop plavix for 5 days.Chest PainChest pain with and without activity HypertensionHyperlipidemiaNSTEMISpontaneous dissection of the coronary artery Congestive Heart FailureIdiopathic hypotensionFatiguePatient states she has extreme fatigue.Shortness of BreathIncreased sob/doeDizziness Dizziness/lightheaded with position changes Encounter Details DateTypeDepartmentCare Team (Latest Contact Info)Cflgsgmcmck21/22/2025 11:20 AM EDTOffice Visit [facility] Heart at [facility] [address] [place] [phone] Wali Collins MD [address] [place] [phone] Spontaneous dissection of coronary artery (Primary Dx); Other fatigue; Precordial pain; Anemia due to acute blood loss Social History Tobacco UseTypesPacks/DayYears UsedDateSmoking Tobacco: NeverSmokeless Tobacco: NeverAlcohol UseStandard Drinks/WeekCommentsNot Currently0 (1 standard drink = 0.6 oz pure alcohol)[facility] UtilitiesAnswerDate RecordedIn the past 12 months [...] or living in a care home (including now)?No11/15/2024Hunger Vital SignAnswerDate RecordedWithin the past 12 months, you worried that your food would run out before you got the money to buymore.Never true11/15/2024Ran Out of Food in the Last YearNot on file 11/15/2024CommentsNoSex and Gender InformationValueDate RecordedSex Assigned at JfleqQhcwzl58/03/2025 3:45 PM EDTLegal OmeDgzcks87/30/2022 12:07 AM EDTGender KkfndngbDayggl31/03/2025 3:45 PM EDTSexual OrientationHeterosexual or Izjgpftn09/03/2025 3:45 PM EDTdocumented as of this encounter Last Filed Vital Signs Vital SignReadingTime TakenCommentsBlood Kpepzlqa038/6012/06/2024 11:10 AM EDT Dcxna950112/06/2024 11:10 AM EDTTemperature--Respiratory Rate--Oxygen Saturation 99%12/06/2024 11:10 AM EDTInhaled Oxygen Concentration--Weight--Jddill251.6 cm (5' 6 )12/06/2024 11:10 AM EDTBody Mass Index--documented in this encounter Functional Status * BPAnswerDate of SnmyleznglTllthh907/60/ 11:10 AM EDNadia Le MA * PulseAnswerDate of ZpomkgpqhcZshfhr6010/22/2025 11:10 AM EDNadia Le MA * Patient PositionAnswerDate of NgznufiovuHdbdfwGibzmkl71/22/2025 11:10 AM EDT Nadia Gagnon MA * BPAnswerDate of BueotmgyapCwzejc019/6012/06/2024 11:10 AM EDNadia Le MA * PulseAnswerDate of EsxikesnecWqquib1015/22/2025 11:10 AM Nadia Ortega MA * ThA4ShygnkCfxc of KqqtaxwsieLiswnf6492/22/2025 11:10 AM Nadia Ortega MA * BP LocationAnswerDate of AssessmentAuthorLeft arm12/06/2024 11:10 AM EDT Nadia Gagnon MA * Patient PositionAnswerDate of LupzdlxobrMqqeihNawgmqh81/22/2025 11:10 AM EDT Nadia Gagnon MA documented as of this encounter Progress Notes * Wali Collins MD - 12/06/2024 11:20 AM EDT Subjective Patient ID: Abbey Garcia is a 34 y.o. female who presents for Follow-up (Patient is here today for a follow up [facility] admission and for surgery clearance. Patient is having an ERCP with Dr. Bellamy at [facility]. Needs to stop plavix for 5 days.), [...] Plan of Treatment DateTypeDepartmentCare Team (Latest Contact Info)Ntweigtdhgm16/17/2025 11:00 AM ESTOffice Visit [facility] Heart at [facility] [address] [place] [phone] Wali Collins MD [address] [place] [phone] NameTypePriorityAssociated DiagnosesOrder ScheduleIron and TIBCLabRoutine Anemia due to acute blood loss Expected: 12/06/2024 (Approximate), Expires: 12/06/2025documented as of this encounter Visit Diagnoses Diagnosis Spontaneous dissection of coronary artery- Primary Other fatigue Precordial pain Anemia due to acute blood loss Acute posthemorrhagic anemia documented in this encounter Care Teams Team MemberRelationshipSpecialtyStart DateEnd Thomas Alas MD [address] [facility] [address] [address] PCP - GeneralFamily Medicine08/17/24documented as of this encounter
--- OUTSIDE RECORDS SUMMARY | 2024-12-08 20:32 | XMS_ITS | Continuity of Care Document ---
Author Organization [facility] Address [address] [place] [address] Phone Care Team Providers Care Grinding Machine Tender Name Role Phone Trinidad Gordillo Attending Provider [phone] Care Teams Visit Care Team Team Status: Inactive Member Role/Relationship Status Dates Trinidad Gordillo Attending Provider Active Start: O ctober 2024 End: December 07, 2024 Chief Complaint and Reason for Visit Chief Complaint Admit Date Unknown December 07, 2024 2 :51pm Allergies, Adverse Reactions, Alerts Allergen Type Severity Reaction Last Updated Verified Status codeine Allergy Unknown Vomiting May 01, 2024 9:09am Yes Active NSAIDS (Non-Steroidal Anti-Inflamma Adverse Reaction Mild d/t surgery May 01, 2024 9:09am Yes Active Social History Smoking Status Status Start Date End Date Date of Observa tion Never smoked tobacco (finding) May 01, 2024 10:40am Observation Status Observation Response Date of Response Legal Sex Female (finding) Sex Assigned At BirthFemaleFebruary 1990 Family History Relationship Condition Age at Onset Recorded Date/T fabiano father Hypothyroidism Unknown motherFamily history of mental disorderUnknownHypertensionUnknownDiabetes mellitusUnknown Problems Active Problems Problem Diagnosis/Recorded Date Onset Date Status C omments Hypoglycemia December 26, 2023 2:18pm Unknown Active Status post gastric bypass for obesityJun2023 2:06pmUnknownActiveSmall bowel obstructionMay 2023 7:34pmUnknownActiveInactive/Resolved Problems Problem Diagnosis/Recorded Date Onset Date Status C omments Dizziness October 02, 2019 4:23pm Unknown Resolved Problem List clean-up per request of Phys. EHR Cmte Headache October 02, 2019 4:23pm Unknown Resolved Problem List clean-up per request of Phys. EHR Cmte Hypoglycemia December 17, 2023 4:11pm Unknown Resolved HypoglycemiaNovember 2023 10:06amUnknownResolvedHypoglycemiaDecember 2023 3:51pmUnknownResolvedChronic abdominal painNovember 2023 4:11pmUnknown ResolvedIntractable vomiting with nauseaMay 2023 7:34pmUnknownResolved Nausea & vomitingFebruary 2023 3:07pmUnknownResolvedNausea & vomiting February 09, 2024 3:51pmUnknownResolvedAbdominal painFebruary 2020 2:02pmUnknownResolvedProblem List clean-up per request of Phys. EHR Cmte Abdominal painFebruary 2020 4:19pmUnknownResolvedProblem List clean-up per request of Phys. EHR CmteAbdominal painDecember 2022 6:18pmUnknownResolved Abdominal painFebruary 2023 3:07pmUnknownResolvedAbdominal painJune 2023 10:30amUnknownResolvedAbdominal painJune 2023 5:51pmUnknownResolved Abdominal painNovember 2023 12:44pmUnknownResolvedAbdominal painNovember 2023 2:23pmUnknownResolvedAbdominal painDecember 2023 9:11amUnknown ResolvedAbdominal painJanuary 2024 4:12pmUnknownResolvedAbdominal pain March 2024 12:41pmUnknownResolvedHypoadrenalismDecember 2023 3:51pm UnknownResolvedNauseaDecember 2022 6:18pmUnknownResolvedNauseaNovember 2023 4:11pmUnknownResolvedNauseaNovember 2023 2:23pmUnknownResolved ConstipationApril 2023 6:03pmUnknownResolvedVomitingJune 2023 1:06pm UnknownResolvedVomitingJune 2023 5:51pmUnknownResolvedVomitingDecember 2023 12:46pmUnknownResolvedVomitingJanuary 2024 4:12pmUnknown ResolvedVomitingMarch 2024 12:41pmUnknownResolvedPUD (peptic ulcer disease)December 17, 2023 4:11pmUnknownResolvedAbdominal pain, chronic, epigastricNovember 2023 10:06amUnknownResolved Medications Medication Status Dose Units Route Directions Qty Days Refills S tart Date Stop Date End Date Reason(s) Instructions Adherence Liothyronine 5 mcg tablet Active 5 MCG PO Daily February 13, 2023 1:00amUnknownLevothyroxine 100 mcg ghimevAcfbpr839BWREBWjoid February 13, 2023 1:00amUnknownMirtazapine 15 mg huudioHjsebr41MYNQAqtenco February 13, 2023 1:00amUnknownAlbuterol Sulfate 90 mcg/actuation HFA aerosol pbtohxxWhtvgd4GNBOAVKLQXPTYII1FJhuzkfyy 30th, 2023 1:00amUnknownTopiramate 100 mg oghbuzCnrryexfkutj067SYQJYrrvb dailyFebruary 13, 2023 1:00amApril 2023 5:49pmBuspirone 15 mg FaxklyPduqvn93CKRKQtdkj times dailyFebruary 13, 2023 1:00amUnknownEscitalopram Oxalate 20 mg zsuoopYsbfxk23WSTOTxbfjRtjsguir 30th, 2023 1:00amUnknownLinaclotide (Linzess) 145 mcg oxuzezqMgvmmb381INIMXAgdjk February 13, 2023 1:00amUnknownOndansetron Hcl 4 mg uyobjmBuhltkqbtbcr7RCSOF3P as needed for nausea and rozmfavx551Qutyjmfh 30th, 2023 1:00amNovember 2023 1:21pmOxycodone-Acetaminophen (Percocet) 5-325 mg cssjmxEvaxhvetgdwu4TDKSG Daily as needed for udut609Xyrdmkhs pril 2023 5:49pmAbdominal pain Unspecified abdominal painMetoclopramide Hcl 10 mg eysgdcGjjhfo18MHLLVhlan times daily as needed for nauseaApril 2023 12:00amUnknownMethocarbamol 500 mg cridhdMofcif722FCGPLktng times dailyApril 2023 12:00amUnknownPolyethylene Glycol 3350 (Miralax) 17 gram/dose skxbmmBiznle13LAYZKtcsi daily as needed for atzhxfitfrrv5777Xturf 2023 12:00ammix into 4-8 oz. of any hot/cold/room temp. beverage; use immediatelyUnknownTopiramate (Topamax) 100 mg tabletActive 100MGPOTwice dailyMay 2023 12:00amUnknownOndansetron 4 mg tablet,gtyotozdxrngqjNrzsbr0ZCKIIeqte 8 hours as needed for nausea and vomiting7 0Nov2023 1:00amUnknownTrazodone 50 mg oebrwwQsdywe36RTHIMhmiahr December 26, 2023 1:00amUnknownOndansetron 4 mg tablet,disintegrating Mgfpgoeivmnh6XLAVzgdtw 6 to 8 hours as needed for Ydupfc455Ttciquwl 2023 1:00amNovember 2023 1:01pmProchlorperazine (Compazine) 25 mg suppository Ugwmwu73GUXOQzojh 12 hours as needed for nausea and xdayiypn764Qygegghq 2023 1:00amUnknownProchlorperazine Maleate (Compazine) 10 mg oameyuXhjjrq88UCSB Every 12 ztpfs901Yyacogy 2024 1:00amUnknownHydrocodone-Acetaminophen 5-325 mg ehjmwyVihmuycboajt1UPAPLITWEP 4-6 HOURS as needed for abdominal wifp8028 April 10ecember 2022 2:59pmAbdominal pain Unspecified abdominal painProchlorperazine Maleate (Compazine) 10 mg tablet Quvjxayikwgz17EYURYqnke times sobnd3079Exviffuv 2020 1:00amDecember 2022 2:59pmPromethazine 25 mg dlzpvbCwnyagsoqxxp56LDZNP8S as needed for nausea and ouhdbqzb494Fgbldptd 2023 1:00amApril 2023 5:49pmOxycodone- Acetaminophen 5-325 mg korpifDzewhqmtgoah2BNOAMQ7N as needed for vnfq5578 April 06pril 2023 5:49pmAbdominal pain Unspecified abdominal painMetoclopramide Hcl (Reglan) 10 mg uvzoeqQkiyurrejaul01 MGPOEvery 6 hours as needed for nausea and awwnsjso928Mpuk 2023 12:00am December 26, 2023 1:20pmMorphine 10 mg/5 mL gdxrnfcqVaxdnrvppawf3JFJYCvhhb 6 hours as needed for severe pain (scale score 7-10)4530November 2023November 2023 1:20pmChronic abdominal pain Unspecified abdominal pain Other chronic painOndansetron 4 mg tablet,qmsajzniludiyuZfctvz5AURVchusv 6 to 8 hours as needed for Iaycar879Kvnra 2024 12:00amUnknown Immunizations Immunization Event Date Not Given Reason Dose Number Route Sales Person Lot Number Reason(s) Given Vaccine Information Statement (VIS) Detail Administration Location COVID-19 Ad26.COV2.S ([employer]) June 23, 2020 Trivalent Influenza VaccineOct2018 Procedures Procedure Date Performed Status Urine Culture December 07, 2024 active Advance Directives Advance Directive Response Recorded Date/ Time Advance Directives No October 02, 2019 2:10pm Insurance Providers Guarantor Sandra Valencia Address [address] [address]Ikwncua Info.Home Phone: Coverage Status Update:2024 Payer Group Member ID Coverage Type Subscriber Relationship to Subscriber Effective Date Expiration Date MMO Id: [id number] A Guy Id: [id number] [address] [address] Home Phone: MMO [employer] [address] [address] [facility] [address] Work Phone: Disabled Id: [id number] Guy , M Id: [id number] [address] [address] Home Phone: Email: [email or web address] [id number] Guy , M Id: [id number] [address] [place] [address] Home Phone: Email: [email or web address] [place] [employer] Id: [id number] Guy , M Id: [id number] [address] [place], [place] [address] Home Phone: Email: [email or web address] Id: [id number] A Guy Id: [id number] [address] [place], [place] [address] Home Phone: Encounters Encounter Location(s) Arrival/Admit Date Discharge/Departure Date Discharge/Departure Disposition Provider(s) Departed Referred -[facility] December 07, 2024 2:51pm December 07, 2024 2:52pm Discharged to home care or self care (routine discharge) PAO Allen Plan of Treatment Future Tests Future scheduled test information is unavailable Pending Tests Test Name Ordered Date Scheduled Date Urine Culture December 07, 2024 2:51pm Future Visits Future appointment information is unavailable Future Procedures Procedure Name Ordered Date Scheduled Date Urine Culture December 08, 2024 12:43pm Octob er 2024 2:51pm Future Medications Future medication information is unavailable Patient Instructions Patient instructions are unavailable
--- OUTSIDE RECORDS SUMMARY | 2024-12-14 07:17 | XMS_ITS | Encounter Summary ---
Author Organization [facility] Address [address] [facility] [place] [address] Care Team Providers Care Band Director Name Role Phone Thomas Alas MD Primary Care Provider [phone] Reason for Referral * Hospital - Outpatient (Routine) - AuthorizedSpecialtyDiagnoses / Procedures Referred By ContactReferred To ContactGastroenterology Diagnoses Common bile duct dilatation Procedures EUS (Upper) w/ EGD Intervention(s): EUS w/ FNA Arabella Patel CNP [address] [place] [address] [place] [address] Phone: tel: fax: [facility] Endoscopy [address] [place] [phone] Phone: tel: fax: Referral IDStatusReasonStart DateExpiration DateVisits RequestedVisits [id number]/17/202510/17/202611 Reason for Visit * Hospital - Outpatient (Routine) - AuthorizedSpecialtyDiagnoses / Procedures Referred By ContactReferred To ContactGastroenterology Diagnoses Common bile duct dilatation Procedures EUS (Upper) w/ EGD Intervention(s): EUS w/ FNA Arabella Patel CNP [address] [place] [address] [place] [address] Phone: tel: fax: [facility] [address] [place] [phone] Phone: tel: fax: Referral IDSKendall DateExpiration DateVisits RequestedVisits [id number]/17/202510/17/202611 Encounter Details DateTypeDepartmentCare Team (Latest Contact Info)Qgcumpgazzd03/30/2025 7:17 AM EDT - 12/14/2024 9:35 AM EDTHospital Encounter [facility] [address] [place] [address] Braxton Bellamy MD [address] [facility] Akhil [address] [facility] [place] [address] Olga Abdullahi CAA [address] [place] [address] Sergei Randall MD [address] [place] [address] Common bile duct dilatation; Chronic narcotic use Discharge Disposition: Home or Self Care () Social History Tobacco UseTypesPacks/DayYears UsedDateSmoking Tobacco: NeverSmokeless Tobacco: NeverAlcohol UseStandard Drinks/WeekCommentsNot Currently0 (1 standard drink = 0.6 oz pure alcohol)[facility] UtilitiesAnswerDate RecordedIn the past 12 months has the [employer], [employer], oil, or water [employer] threatened to shut off services in your [...] 11/15/2024CommentsNoSex and Gender InformationValueDate RecordedSex Assigned at VzaitViefbi89/03/2025 3:45 PM EDTLegal EyeVfkkqf56/30/2022 12:07 AM EDTGender BmnwrgqqOizzak83/03/2025 3:45 PM EDTSexual OrientationHeterosexual or Jtppktbj21/03/2025 3:45 PM EDTdocumented as of this encounter Last Filed Vital Signs Vital SignReadingTime TakenCommentsBlood Syxcqmzk79/7612/14/2024 7:47 AM EDT patient states this is normal for ystYvmho4332/30/2025 7:47 AM UORUfssjzqhssl32 ??C (96.8 ??F)12/14/2024 7:47 AM EDTRespiratory Qcjz2019 7:47 AM EDT Oxygen Nkilscywtu67%12/14/2024 7:47 AM EDTInhaled Oxygen Concentration--Weight 80.4 kg (177 lb 4 oz)12/14/2024 7:36 AM LEDMyiynw491.6 cm (5' 6 )12/14/2024 7:36 AM EDTBody Mass Index28.6110/ 7:36 AM EDTdocumented in this encounter Functional Status * QuestionAnswerDate of LhdceadobjVemykuGE27/7612/14/2024 7:47 AM Mayda Ortiz RNPulse6612/14/2024 7:47 AM Mayda Ortiz RN * Pain Assessment TimerQuestionAnswerDate of AssessmentAuthorRestart Pain Assessment VwojyOeb06/30/2025 7:50 AM Mayda Ortiz RN * Pain AssessmentQuestionAnswerDate of AssessmentAuthorPain LocationAbdomen 12/14/2024 7:50 AM Mayda Ortiz RNPain BpglktreywvWtr86/30/2025 7:50 AM Mayda Ortiz RNPain TypeAcute pain;Chronic pain12/14/2024 7:50 AM Mayda Ortiz RNPain Wkbme051 7:50 AM Mayda Ortiz RNPain Assessment0-101 7:50 AM Mayda Ortiz RN * Head, Ears, Eyes, Nose, and Throat (HEENT)QuestionAnswerDate of Assessment AuthorHead, Ears, Eyes, Nose, and Throat (WDL)WDL1 7:50 AM Mayda Dawson RN * QuestionAnswerDate of OpfxhlfkddMfhkngBK91/7612/14/2024 7:47 AM Mayda Ortiz RNTemp96.81 7:47 AM Mayda Ortiz RNPulse66 12/14/2024 7:47 AM Mayda Ortiz FUFcsg6929/30/2025 7:47 AM Mayda Dawson RNSpO29812/14/2024 7:47 AM Mayda Ortiz RN * GastrointestinalQuestionAnswerDate of AssessmentAuthorGastrointestinal (WDL)X 12/14/2024 7:50 AM Mayda Ortiz RNAbdomen Inspection Soft;Funfroraesht97/30/2025 7:50 AM Mayda Ortiz RN * Peripheral VascularQuestionAnswerDate of AssessmentAuthorPeripheral Vascular (WDL)WDL1 7:50 AM Mayda Ortiz RN * MusculoskeletalQuestionAnswerDate of AssessmentAuthorMusculoskeletal (WDL)WDL 12/14/2024 7:50 AM Mayda Ortiz RN * PsychosocialQuestionAnswerDate of AssessmentAuthorPsychosocial (WDL)WDL 12/14/2024 7:50 AM Madya Ortiz RN * CardiacQuestionAnswerDate of AssessmentAuthorCardiac RegularityRegular 12/14/2024 7:50 AM Mayda Ortiz RNCardiac (WDL)X1 7:50 AM Mayda Ortiz RNJugular Venous Distention (JVD)No12/14/2024 7:50 AM Mayda Oritz RNCardiac KkvfvuonOlcl79/30/2025 7:50 AM Mayda Dawson RNHeart SoundsS1, S212/14/2024 7:50 AM Mayda Ortiz RN * RespiratoryQuestionAnswerDate of AssessmentAuthorRespiratory (WDL)WDL 12/14/2024 7:50 AM Mayda Ortiz RN * GenitourinaryQuestionAnswerDate of AssessmentAuthorGenitourinary (WDL)WDL 12/14/2024 7:50 AM Mayda Ortiz RN * NeurologicalQuestionAnswerDate of AssessmentAuthorLevel of ConsciousnessAlert 12/14/2024 7:50 AM Mayda Ortiz RNOrientation LevelOriented X4 12/14/2024 7:50 AM Mayda Ortiz RNCognitionAppropriate judgement;Follows pqhkilck19/30/2025 7:50 AM Mayda Ortiz RNSpeech Clear12/14/2024 7:50 AM Mayda Ortiz RNNeuro (WDL)X1 7:50 AM Mayda Ortiz RNR Hand JarwpCyhlrp12/30/2025 7:50 AM JUNT Mayda Gray, DEEL Hand DmtwrTxzwto15/30/2025 7:50 AM Mayda Ortiz RNR Foot HggrdoyqdtjhDgaxlm71/30/2025 7:50 AM Mayda Ortiz RNL Foot PxlttjsnibaoTkgwcr87/30/2025 7:50 AM Mayda Ortiz RNNeuro FzhzxsbiJmrv85/30/2025 7:50 AM Mayda Ortiz RN Hand Grasp/Motor Function/Sensation AssessmentGrasp;Reczdsqwrwqx97/30/2025 7:50 AM Mayda Ortiz, RNFacial AkofegvdQwpxniwtjjv79/30/2025 7:50 AM Mayda Ortiz RN * QuestionAnswerDate of QrejagnpvoXaznkhRIBU11605/30/2025 9:35 AM EDTInterface, Device In * Pain AssessmentQuestionAnswerDate of AssessmentAuthorPain LocationAbdomen 12/14/2024 7:50 AM Mayda Ortiz RNPain RyyrxacbxqyJvq99/30/2025 7:50 AM Mayda Ortiz RNPain TypeAcute pain;Chronic pain12/14/2024 7:50 AM Mayda Ortiz RNPain Navlm903 7:50 AM Mayda Ortiz RNPain Assessment0-101 7:50 AM Mayda Ortiz RN * IntegumentaryQuestionAnswerDate of AssessmentAuthorIntegumentary (WDL)WDL 12/14/2024 7:50 AM Mayda Ortiz RN * [place] Suicide Severity Rating ScaleQuestionAnswerDate of AssessmentAuthor1. Have [...] AM EDT Repeat EGD pending pathology. Call [phone] in 7-10 days for results of biopsies. Resume Plavix tomorrow, all other home medications can be resumed today. Resume previous diet. * Attachments The following attachments cannot be sent through Care Everywhere. * Monitored Anesthesia Care Care After ([place]) * Endoscopic Mucosal Resection Care After ([place]) * Endoscopic Ultrasound ([place]) documented in this encounter Medications at Time [...] the skin every 3rd (third) day. HYDROcodone-acetaminophen ([place]) 5-325 mg tablet Take 2 tablets by [...] start before November 08, 2024. 30 tablet mirtazapine (Remeron) 45 mg tablet Take 45 [...] (eight) hours for 287 doses. 90 tablet /[id number]/ colchicine 0.6 mg tablet Indications:Chest painTake 0.5 tablets (0.3 mg) by mouth every other day. Do not start before November 14, 2024. 8 tablet documented as of this encounter H&P Notes [...] balloon dilation up to [address] [facility] that was performed in September 2024. The [...] 5.3* B12/Folate/Iron studies: No results found for: FARBTVLS19 , FOLATE , IRON , TIBC , UIBC , IRONSAT , FERRITIN Viral Hepatitis No results found for: HEPAIGM , HAV , HEPBSAG , HEPBSAB , HEPBEAB , HEPBIGM , HEPBCAB , HEPBCOREAB , HBVNAT , HCVSCR , HEPCAB , HCVNAT , HCVPCR , HCVTMA Liver workup No results found for: MISAEL , SMOOTHMUSCAB , CERULOPLSM , R9OJXMNADGS , TTGA , IGA , TSH , [...] a 34 y.o. female who transferred to [facility] for chest pain. CT done at OSH [...] balloon dilation up to 20 mm at [facility] in September 2024 History of [...] am to 4 pm weekdays in house: [phone] 4 pm to 6 am or weekends: Please contact the mult au matic operator to page the fellow travel accommodations rater documented in this encounter Nursing Notes * [...] Procedure Summary Date: 12/14/24 Room / Location: [facility] Anesthesia Start: 917 Anesthesia Stop: 1003 Procedures: EUS (UPPER) W/ EGD ENDOSCOPIC RETROGRADE CHOLANGIOPANCREATOGRAPHY Diagnosis: Common bile duct dilatation Scheduled Providers: Braxton Bellamy MD; ORLANDO Restrepo; Sergei Randall MD Responsible Provider: Sergei Randall MD Anesthesia Type: general ASA Status: 3 Anesthesia Post Transport [facility] room air Patient Monitor: direct observation Transport: uneventful Patient condition is: stable Comments: Patient arousable, VSS, SV well, report to RN documented in this encounter Plan of Treatment DateTypeDepartmentCare Team (Latest Contact Info)Oxnfiqigmhv84/17/2025 11:00 AM ESTOffice Visit [facility] [address] [place] [phone] Wali Collins MD [address] [place] [phone] NameTypePriorityAssociated DiagnosesDate/TimeHistology - tissue examPathology and CytologyRoutine Common bile duct dilatation 12/14/2024 9:49 AM EDTNameTypePriorityAssociated DiagnosesOrder Schedule Histology - tissue examPathology and CytologyTimed Common bile duct dilatation Release Upon Ordering for 1 Occurrences starting 12/14/2024, 1 completed documented as of this encounter Procedures Procedure NamePriorityDate/TimeAssociated DiagnosisCommentsEUS (UPPER) W/ EGD Xejecnl5012/14/2024 9:59 AM EDT Common bile duct dilatation POCT GLUCOSE METER UNSOLICITED IFQZGLBExfpgpd71/30/2025 7:47 AM EDT HEPATIC FUNCTION OYDVWIxgimmt67/30/2025 7:40 AM EDT documented in this encounter [...] balloon dilation up to [address] [facility] that was performed in September 2024. ??The [...] I performed the procedure. Authorizing ProviderResult TypeResult StatusArabella Patel CNPENDOSCOPY PROCEDURE ORDERABLESFinal Result * POCT glucose meter (12/14/2024 7:47 AM EDT)ComponentValueRef RangeTest Method Analysis TimePerformed AtPathologist SignatureGlucose VKO6099 - 105 mg/dL 12/14/2024 7:57 AM [facility] ([facility])Comment:fxktptx6Exffzvlx (Source)Anatomical Location / LateralityCollection Method / VolumeCollection TimeReceived TimeBloodCapillary blood specimen / Uqiuvtw8812/14/2024 7:47 AM EDT 12/14/2024 7:57 AM EDT Narrative [facility] ([facility]) - 12/14/2024 7:57 AM EDT Waived Testing in the ED is performed under the ED CLIA certificate #[id number]. Authorizing ProviderResult TypeResult Aiden ROBLERO BLOOD ORDERABLES Final ResultPerforming OrganizationAddressCity/State/ZIP CodePhone Number [facility] ([facility]) [address] [place], [place] [phone] * Hepatic function panel (12/14/2024 7:40 AM EDT)ComponentValueRef RangeTest MethodAnalysis TimePerformed AtPathologist SignatureTotal Bilirubin0.30.3 - 1.0 mg/dL12/14/2024 8:26 AM [facility] ([facility])Bilirubin, Direct0.10 - 0.2 mg/dL12/14/2024 8:26 AM [facility] ([facility])Alkaline Ixepkbavqxj4904 - 104 U/L1 8:26 AM [facility] ([facility])AST25 13 - 39 U/L1 8:26 AM [facility] ([facility])ALT (SGPT)147 - 52 U/L1 8:26 AM [facility] ([facility])Total Protein6.26.0 - 8.3 g/dL12/14/2024 8:26 AM [facility] ([facility])Albumin3.83.5 - 5.7 g/dL 12/14/2024 8:26 AM [facility] ([facility])Specimen (Source)Anatomical Location / LateralityCollection Method / VolumeCollection TimeReceived Time BloodVenous blood specimen / UnknownExisting Catheter / Crwzwux6412/14/2024 7:40 AM EDT1 7:49 AM EDT Narrative Authorizing ProviderResult TypeResult StatusKarmen ROBLERO BLOOD ORDERABLESFinal ResultPerforming OrganizationAddressCity/State/ZIP CodePhone Number [facility] ([facility]) [address] [place] [address] documented in this encounter Visit Diagnoses Diagnosis [...] area of skin behind the ear. Medication Magxbmk6912/14/2024 8:11 AM EDT1 patchBehind Right Eardocumented in this encounter Care Teams Team MemberRelationshipSpecialtyStart [place] [address] [place], [place] [phone] PCP - GeneralFamily Medicine08/17/24documented as of this encounter
--- OUTSIDE RECORDS SUMMARY | 2024-12-14 09:18 | XMS_ITS | Encounter Summary ---
Author Organization [facility] Address [address] [place] [address] Care Team Providers Care Forestry And Wildlife Manager Name Role Phone Thomas Alas MD Primary Care Provider [phone] Encounter Details DateTypeDepartmentCare Team (Latest Contact Info)Meyibcufrvs56/30/2025 9:18 AM EDTAnesthesia Event [facility] [address] [place] [address] Sergei Randall MD [address] [place] [address] Raulito Cancino MD [address] [place] [address] Anesthesia Record Procedure NameResponsible AnesthesiologistAnesthesia Start TimeAnesthesia Stop TimeEUS (UPPER) W/ Miguel Randall MD12/14/24 334108 1004DateTimeEvent Obzvoco61/30/676390786961Gy Cgpnh2568Ns Start Omxf5043We InductionThe patient was reevaluated immediately before moderate or deep sedation use and before anesthesia induction.0925An Hdytlvszfx1939Uuylfkjdqc Zadyg7561Nvnf OutTime out completed (confirmed patient ID, surgeon, procedure, and operative site).0959An Xkxtvwgvmo8443wy stop cjnq3456Wclsgkc to ReceivingI completed my handoff to the receiving clinician during which we: 1. Identified the patient 2. Identified the responsible provider 3. Reviewed the pertinent medical history 4. Discussed the surgicalcourse 5. Reviewed intra-op anesthesia management and issues during anesthesia 6. Set expectations for post-procedure period 7. Allowed opportunity for questions and acknowledgement of understanding.1004An Stop* NameTotal midazolam (Versed) 1mg/mL injection2 mgfentaNYL (SUBLIMAZE) vrliubesj669 mcg lidocaine (Xylocaine) 20 mg/ml injection 2 %60 mgpropofol 10 mg/mL160 mg succinylcholine 20 mg/mL120 mgdexAMETHasone (Decadron) 4 MG/ML injection6 mg ondansetron 2 mg/mL4 mglactated Ringer's ikramwch771.17 mL * Agents Name O2 N2O Air Desflurane Inspired Desflurane N2O Inspired N2O Inspired O2 Setting * Blood No blood administrations on file. TypeDetailsPlacementRemovalSingle Lumen Implantable Port10/16/24; 2112; Yes; Right; Chest10/16/242112 by Roge Jones Wound (Any Pressure Injuries included)11/02/24; 908; Surgical; Groin; Anterior, Proximal, Right, Upper; hematoma (x2 small access sites noted to area)11/02/24908 by Roge Spence Wound (Any Pressure Injuries included)11/16/24; 08; Y; Abdomen; Left, Lower; old j tube site11/16/24799 by DEEPAK Heck Placement Date: 12/14/24; Placement Time: 924 (created via procedure documentation); Mask Ventilation: 1; Technique: Video laryngoscopy; Type: ETT - single; Single Lumen Tube Size: 7.5 mm; Cuffed: Yes; Blade Size: 3; Location: Oral; Grade View: Grade I; Insertion Attempts: 1; Placement Verification: Auscultation, Capnometry; Airway Comments: Hard bite block placed; Removal Date: 12/14/24; Removal Time: 924 by ORLANDO Restrepo12/14/24958 by Su Restrepocuregino in this encounter Social History Tobacco UseTypesPacks/DayYears UsedDateSmoking Tobacco: NeverSmokeless Tobacco: NeverAlcohol UseStandard Drinks/WeekCommentsNot Currently0 (1 standard drink = 0.6 oz pure alcohol)C UtilitiesAnswerDate RecordedIn the past 12 months has [...] 11/15/2024CommentsNoSex and Gender InformationValueDate RecordedSex Assigned at TlqkbEquubl27/03/2025 3:45 PM EDTLegal HbrSlraia11/30/2022 12:07 AM EDTGender CaqkyfvcQjjbpi20/03/2025 3:45 PM EDTSexual OrientationHeterosexual or Qiggintn37/03/2025 3:45 PM EDTdocumented as of this encounter Functional Status * QuestionAnswerDate of LopdsostxwNmlpqiEH234/7012/14/2024 10:30 AM Aisha Hernandez RNPulse7312/14/2024 10:30 AM Aisha Hebert RNHeart Rate GzhnhrEanahdh36/30/2025 10:30 AM Aisha Hebert RNPatient Position Lying12/14/2024 10:30 AM Aisha Hebert RN * Pain Assessment TimerQuestionAnswerDate of AssessmentAuthorRestart Pain Assessment PbqxgArd41/30/2025 10:30 AM Aisha Hebert RN * Pain AssessmentQuestionAnswerDate of AssessmentAuthorPain LocationAbdomen 12/14/2024 7:50 AM Mayda Ortiz RNPain GhwynipdieuRzt80/30/2025 7:50 AM Mayda Ortiz RNWjerald-Walsh FACES Pain Vxmahj765/30/2025 10:01 AM Aisha Hebert RNRamsay Scale (RS): Imcga264 10:30 AM Aisha Hebert RNPain TypeAcute pain;Chronic pain12/14/2024 7:50 AM Mayda Dawson RNPain Fcgoi955 7:50 AM Mayda Ortiz RNPain AssessmentNo/denies pain12/14/2024 10:30 AM Aisha Hebert RN * Head, Ears, Eyes, Nose, and Throat (HEENT)QuestionAnswerDate of Assessment AuthorHead, Ears, Eyes, Nose, and Throat (WDL)WDL1 10:30 AM Aisha Hernandez RN * QuestionAnswerDate of AssessmentAuthorHead of Bed ElevatedHOB 301 10:30 AM Aisha Hebert RN * Vital SignsQuestionAnswerDate of PbazaecuitJjbonwDE613/7012/14/2024 10:30 AM Aisha Hebert RNTemp97.310 10:30 AM Aisha Hebert RN Temp ujlWzghzzsh74/30/2025 10:30 AM Aisha Hebert, YMPesiu1624/30/2025 10:30 AM Aisha Hebert, JOGzju4415/30/2025 10:30 AM Aisha Hebert, AVOkI001999/30/2025 10:30 AM Aisha Hebert RNHeart Rate Source Gfowswj7412/14/2024 10:30 AM Aisha Hebert, RNBP LocationLeft arm 12/14/2024 10:30 AM Aisha Hebert, RNBP PxlisqFwynkbzrc14/30/2025 10:30 AM Aisha Hebert, RNPatient UtjkuecqMdqzs01/30/2025 10:30 AM EDT Aisha Louise, RN * QuestionAnswerDate of AssessmentAuthorLevel of NrkxurcmurofuBirle40/30/2025 10:01 AM Aisha Hebert RNOrientation LevelOriented X41 10:01 AM Aisha Hebert, RN * QuestionAnswerDate of AssessmentAuthorCardiac RghvjgEQZ49/30/2025 10:30 AM EDT Aisha Louise RNCardiac XxpqyiaaduIicvrxp01/30/2025 10:01 AM EDT Aisha Louise RNCardiac QqhfokkyIpqf60/30/2025 10:30 AM Aisha Hebert RNHeart SoundsS1, S212/14/2024 10:01 AM Aisha Hebert, RN * GastrointestinalQuestionAnswerDate of AssessmentAuthorPassing FlatusNo 12/14/2024 10:01 AM Aisha Hebert, RNAbdominal TendernessSoft;Nontender 12/14/2024 10:01 AM Aisha Hebert RNBowel Sounds (All Quadrants) Aonltlh3612/14/2024 10:01 AM Aisha Hebert RNGastrointestinal (WDL)WDL 12/14/2024 10:30 AM Aisha Hebert RNAbdomen InspectionSoft;Rounded 12/14/2024 10:01 AM Aisha Hebert [...] Hebert RN * NeurologicalQuestionAnswerDate of AssessmentAuthorCognitionAppropriate judgement;Follows ncgsphko80/30/2025 7:50 AM Mayda Ortiz RNSpeech Clear12/14/2024 7:50 AM Mayda Ortiz RNNeuro (WDL)X1 7:50 AM Mayda Ortiz RNR Hand LjymbCvfmuk69/30/2025 7:50 AM Mayda Dawson RNL Hand DgvlrRvsinw73/30/2025 7:50 AM Mayda Ortiz RNR Foot AzkysqiylvdgWisorc07/30/2025 7:50 AM Mayda Ortiz RNL Foot ZprszrroqxwjIvoezt52/30/2025 7:50 AM Mayda Ortiz RNNeuro OjwdopjbVwcl64/30/2025 7:50 AM Mayda Ortiz RN Hand Grasp/Motor Function/Sensation AssessmentGrasp;Ysuuygvtmybr88/30/2025 7:50 AM Mayda Ortiz RNFacial TiyaloqgXcpcsybwfpm06/30/2025 7:50 AM Mayda Ortiz RN * QuestionAnswerDate of GwofmkcuuhNgvjbcLUVE6152/30/2025 10:00 AM Alvina, Device In * Pain AssessmentQuestionAnswerDate of AssessmentAuthorPain LocationAbdomen 12/14/2024 7:50 AM Mayda Ortiz RNPain BalnjyjxydfKxj61/30/2025 7:50 AM Mayda Ortiz RNWong-Walsh FACES Pain Enzurp040/30/2025 10:01 AM Aisha Hebert RNRamsay Scale (RS): Bmchi105 10:30 AM Aisha Hebert RNPain TypeAcute pain;Chronic pain12/14/2024 7:50 AM Mayad Dawson RNPain Vgtxn465 7:50 AM Mayda Ortiz RNPain AssessmentNo/denies pain12/14/2024 10:30 AM Aisha Hebert RN * IntegumentaryQuestionAnswerDate of AssessmentAuthorIntegumentary (WDL)WDL 12/14/2024 7:50 AM Mayda Ortiz RN * [place] Suicide Severity Rating ScaleQuestionAnswerDate of AssessmentAuthor1. Have [...] Mayda Dawson RN * Modified AldreteQuestionAnswerDate of HaehtbourrVucawkKaxehvfj268/30/2025 10:30 AM Aisha Hebert RNRespiration21 10:30 AM EDT Aisha Louise RNCirculation21 10:30 AM Aisha Hebert RN Vbmenahhyoipq144/30/2025 10:30 AM Aisha Hebert RNOxygen Saturation2 12/14/2024 10:30 AM Aisha Hebert RNModified Jesi Agwoy4542/30/2025 10:30 AM Aisha Hebert RN documented as of this encounter Mental Status * Modified AldreteQuestionAnswerEntry HrfwAoamszJkehxusn673/30/2025 10:30 AM EDAisha Munoz RNRespiration21 10:30 AM Aisha Hebert RN Togimarluqn627/30/2025 10:30 AM Aisha Hebert RNConsciousness2 12/14/2024 10:30 AM Aisha Hebert RNOxygen Vqqhmqyhjk526/30/2025 10:30 AM Aisha Hebert RNModified Jesi Xpiaa3927/30/2025 10:30 AM Aisha Hernandez RN documented in this encounter Procedure Notes * ORLANDO Restrepo - 12/14/2024 9:32 AM EDTAssociated Order(s): Airway Airway Date/Time: 12/14/2024 9:25 AM Reason: elective Airway not difficult General Information and Staff Patient location during procedure: [place] Anesthesiologist: Sergei Randall MD Resident/QUITLINE COUNSELOR/CAA: ORLANDO Restrepo Performed: resident/QUITLINE COUNSELOR/ORLANDO Patient Condition Indications for airway management: anesthesia [...] Plan of Treatment DateTypeDepartmentCare Team (Latest Contact Info)Jkucppdzcfb52/17/2025 11:00 AM ESTOffice Visit [facility] [address] [place] [address] Wali Collins MD [address] [place] [address] documented as of this encounter Procedures Procedure NamePriorityDate/TimeAssociated DiagnosisCommentsPR AN ELECTIVE ENDOTRACHEAL IYTHFXJfwqknj21/30/2025 9:25 AM EDT documented in this encounter Results * [place] AN ELECTIVE ENDOTRACHEAL AIRWAY (12/14/2024 9:25 AM EDT) Narrative Olga Abdullahi CAA - 12/14/2024 9:25 AM EDT ORLANDO Restrepo 12/14/2024 9:33 AM Airway Date/Time: 12/14/2024 9:25 AM Reason: elective Airway not difficult General Information and Staff Patient location during procedure: [place] Anesthesiologist: Sergei Randall MD Resident/THOMAS/ORLANDO: ORLANDO Restrepo Performed: resident/THOMAS/ORLANDO Patient Condition Indications for airway management: anesthesia [...] Procedure Summary Date: 12/14/24 Room / Location: [facility] Anesthesia Start: 917 Anesthesia Stop: 1003 [...] (UPPER) W/ EGD ENDOSCOPIC RETROGRADE CHOLANGIOPANCREATOGRAPHY Location: [facility] Relevant Problems Anesthesia (+) Obstructive sleep [...] infarction (CMS/HCC) NSTEMI (non-ST elevated myocardial infarction) (CMS/HCC) Obesity Osteoarthritis Panic disorder PCOS (polycystic ovarian syndrome) PONV (postoperative nausea and vomiting) Radiculopathy Sepsis (CMS/HCC) Small bowel obstruction (CMS/HCC) Physical Exam Airway Mallampati: II TM distance: [...] 0920, Anesthesia Intraprocedure Given12/14/2024 9:22 AM EDT50 psfEyzgi42/30/2025 9:20 AM EDT50 mcg lactated Ringer's infusion 1 mL/hr, intravenous, Continuous, Starting on Heena 12/14/24 at 0745, For 99 days, Preprocedure, Indication: preop Given12/14/2024 9:34 AM PCI257 mLContinued by Ypxqykkmqk39/30/2025 9:18 AM EDT1 mL/hr1 mL/hrNew Bag12/14/2024 8:54 [...] at 0923, Anesthesia Intraprocedure Given12/14/2024 9:23 AM AJI015 mg succinylcholine (Anectine) injection intravenous, As needed, Starting on Heena 12/14/24 at 0923, Anesthesia Intraprocedure Given12/14/2024 9:23 AM SDZ193 mgdocumented in this encounter Care Teams Team MemberRelationshipSpecialtyStart DateEnd Thomas Alas MD [address] [place] [address] PCP - GeneralFamily Medicine08/17/24documented as of this encounter
[2024-12-16] VITALS (12 sets, daily range): BP systolic 108–138; BP diastolic 76–95; PULSE 79–117; TEMP 36.6; O2SAT 95–100; BMI 28.6
--- NOTE | 2024-12-16 22:42 | ECG_ITS ---
[facility] Test Date: 2024-12-16 Pat Name: JUAN KONG Department: Room: - Gender: Female Computer Peripheral Equipment Operator: : 1990 Requested By: 1030 Order Number: [id number] Reading MD: JAMES HODGES M.D. Measurements Intervals [place] Rate: 84 P: 73 MI: 130 QRS: 77 QRSD: 78 T: 70 QT: 408 QTc: 483 Interpretive Statements 1100 Sinus rhythm 1470 with occasional supraventricular premature complexes 8304 Long QTc interval 9150 abnormal ECG Compared to ECG 12/08/2024 20:53:42 QTc has lengthened Electronically Signed On 12-17-2024 9:41:36 EST by JAMES HODGES M.D.
--- OUTSIDE RECORDS SUMMARY | 2024-12-16 22:44 | XMS_ITS | Clinical Summary ---
Author Organization [facility] Address [address] [place] [address] Care Team Providers Care Senior Firmware Engineer Name Role Phone Mateusz Rosales MD Unavailable [phone] Source Comments The following information is NOT included in Care Everywhere downloads:Psychiatric notes, ECG results, Cardiac Rehab notes, Pulmonary Function notes, data from SmartForms (includes but not limited toPregnancy data,audiograms, eye exams, pre-surgical evaluation notes, well-child exam data).[facility] Medications No known medications Active Problems ProblemNoted DateDiagnosed DateMedian arcuate ligament csriuvfe23/02/2025 Assessment & Plan (10/09/2024 2:29 PM EDT): [...] prior laparotomy and open repair Encounters DateTypeDepartmentCare XxxcSwhidhfgeak30/25/2025 1:45 PM EDTTelemedicine [facility] Oncology Surgical [address] [phone] Mateusz Rosales MD Median arcuate ligament syndrome (HCC) (Primary Dx)10/09/20240954Myyyyb33/21/2025 Telephone [facility] Surgery General [address] [place], [place] [phone] Mateusz Rosales MD from Last 3 Months Immunizations ImmunizationAdministration DatesNext DueInfluenza, injectable, quadrivalent, preservative free (OSS=698)11/12/2022,11/16/2021,12/25/2020Influenza, unspecified formulation (CVX=88)01/01/2021,11/28/2018 Social History Tobacco UseTypesPacks/DayYears UsedDateSmoking Tobacco: NeverSmokeless Tobacco: Never Tobacco Cessation:Counseling Given: Not Answered CommentsUnknownSex and Gender InformationValueDate RecordedSex Assigned at BirthNot on fileLegal WezTwgoah81/23/2024 2:52 PM ESTGender IdentityNot on fileSexual OrientationNot on file Last Filed Vital Signs Vital SignReadingTime TakenCommentsBlood Qwlyvumf674/7306 2:27 PM EDT Sqonh8677 2:27 PM VQNZyxleexljwa38.4 ??C (97.5 ??F)07/17/2024 2:27 PM EDTRespiratory Qgzc231707/17/2024 2:27 PM EDTOxygen Qopmggohzn64%07/17/2024 2:27 PM EDTInhaled Oxygen Concentration--Zgwiqi38.5 kg (192 lb 12.8 oz)07/17/2024 2:27 PM EDTHeight--Body Mass Index-- Plan of Treatment Health MaintenanceDue DateLast DoneCommentsMammography (shared decision-making, age 35-39)1989HIV Test2004Hepatitis C Tddkptqk57/17/2008Tdap Booster 2007Hepatitis A (HAV) Vaccine (optional start [...] Corby Garcia TypeRelation to PatientDate of BirthPhoneBilling AddressPersonal/WfllkfRorz15/17/[id number] [place] [phone] Care Teams Team MemberRelationshipSpecialtyStart DateEnd Date Mateusz Rosales MD [address] [place] [address] PhysicianGeneral Surgery05/20/24
--- OUTSIDE RECORDS SUMMARY | 2024-12-16 22:44 | XMS_ITS | Encounter Summary ---
Author Organization [facility] Address [address] [place] [address] Care Team Providers Care Retail And Restaurant Associate Name Role Phone Thomas Alas MD Primary Care Provider [phone] Encounter Details DateTypeDepartmentCare Team (Latest Contact Info)Hrhgthlvlcr11/22/2025Orders Only [facility] Heart at [facility] [address] [place] [address] Maryuri Downing MA Anemia, unspecified type (Primary Dx) Social History Tobacco UseTypesPacks/DayYears UsedDateSmoking Tobacco: NeverSmokeless Tobacco: NeverAlcohol UseStandard Drinks/WeekCommentsNot Currently0 (1 standard drink = 0.6 oz pure alcohol)[facility] UtilitiesAnswerDate RecordedIn the past 12 months has [...] homeless or living in a custodial (including now)?No11/15/2024Hunger Vital SignAnswerDate RecordedWithin the past 12 months, you worried that your food would run out before you got the money to buymore.Never true11/15/2024Ran Out of Food in the Last YearNot on file 11/15/2024CommentsNoSex and Gender InformationValueDate RecordedSex Assigned at DlyedJbnmmm36/03/2025 3:45 PM EDTLegal TavTeejxf88/30/2022 12:07 AM EDTGender FnmzizklYnokdk00/03/2025 3:45 PM EDTSexual OrientationHeterosexual or Picklwvp20/03/2025 3:45 PM EDTdocumented as of this encounter Functional Status * BPAnswerDate of IqhbzmqdqdFydkam309/6012/06/2024 11:10 AM Nadia Ortega MA * PulseAnswerDate of PcvpszyzimXdgvbe9093/22/2025 11:10 AM Nadia Ortega MA * Patient PositionAnswerDate of MbeqzhyegyYibdfzNdwxhpo71/22/2025 11:10 AM EDT Nadia Gagnon MA * BPAnswerDate of OdkiupbfcaDzcmrz508/6012/06/2024 11:10 AM Nadia Ortega MA * PulseAnswerDate of TuflmqdqcxIjjlat0826/22/2025 11:10 AM Nadia Ortega MA * FvF8YgtifgOvsq of GbllzghpkkXvmiop3861/22/2025 11:10 AM Nadia Ortega MA * BP LocationAnswerDate of AssessmentAuthor[facility]12/06/2024 11:10 AM EDT Nadia Gagnon MA * Patient PositionAnswerDate of QzivydnpvpDbrgsvNxjbyjv27/22/2025 11:10 AM EDT Nadia Gagnon MA documented as of this encounter Plan of Treatment DateTypeDepartmentCare Team (Latest Contact Info)Dqodssuzkwd77/17/2025 11:00 AM ESTOffice Visit [facility] [address] [place] [phone] Wali Collins MD [address] [place] [phone] documented as of this encounter Visit Diagnoses Diagnosis Anemia, unspecified type- Primary documented in this encounter Care Teams Team MemberRelationshipSpecialtyStart DateEnd Date Thomas Alas MD [address] [facility] [address] [address] PCP - GeneralFamily Medicine08/17/24documented as of this encounter
--- OUTSIDE RECORDS SUMMARY | 2024-12-16 22:44 | XMS_ITS | Encounter Summary ---
Author Organization [facility] Address [address], [address] [place] [address] Care Team Providers Care Sales Appointment Coordinator Name Role Phone Thomas Alas MD Primary Care Provider [phone] Encounter Details DateTypeDepartmentCare Team (Latest Contact Info)Bkxmeqzzpei94/20/2025Travel Social History Tobacco UseTypesPacks/DayYears UsedDateSmoking Tobacco: NeverSmokeless [...] Safety Domain Source: IP Abuse ScreeningAnswerDate RecordedPhysical qbdeeChxuaq79/18/2025 Verbal ktqdbImotrf15/18/2025Emotional vuxltCxvlpj90/18/2025Financial abuseDenies 12/02/2024Sexual uiexxUeyekp00/18/2025CommentsNoSex and Gender InformationValueDate RecordedSex Assigned at BirthNot on fileLegal SexFemale 04/12/2013 2:41 PM ESTGender IdentityNot on fileSexual OrientationNot on file documented as of this encounter Functional Status documented as of this encounter Plan of Treatment Not on file documented as of this encounter Visit Diagnoses Not on filedocumented in this encounter Care Teams Team MemberRelationshipSpecialtyStart DateEnd Date Thomas Alas MD [address] [place] [address] PCP - GeneralFamily Medicine11/08/24documented as of this encounter
--- OUTSIDE RECORDS SUMMARY | 2024-12-16 22:44 | XMS_ITS | Encounter Summary ---
Author Organization [facility] Address [address] [place] [address] Care Team Providers Care Fish Rod Maker Name Role Phone Thomas Alas MD Primary Care Provider [phone] Encounter Details DateTypeDepartmentCare Team (Latest Contact Info)Xmfagjkieng76/21/2025Orders Only [facility] Heart at [facility] [address] [place] [address] Provider, MD Siri [address] [place], [place] [phone] Social History Tobacco UseTypesPacks/DayYears UsedDateSmoking Tobacco: NeverSmokeless [...] 11/15/2024CommentsNoSex and Gender InformationValueDate RecordedSex Assigned at NsrhyNtsaza91/03/2025 3:45 PM EDTLegal GanCvbuli59/30/2022 12:07 AM EDTGender ZgwzelwhNozmyr86/03/2025 3:45 PM EDTSexual OrientationHeterosexual or Cmzyaltk48/03/2025 3:45 PM EDTdocumented as of this encounter Functional Status * BPAnswerDate of LxqemtrshgXhweua635/6012/06/2024 11:10 AM Nadia Ortega MA * PulseAnswerDate of HpaxnzpaypGnjsmc0697/22/2025 11:10 AM Nadia Ortega MA * Patient PositionAnswerDate of YkvslghdznDqgxysZjatoab59/22/2025 11:10 AM EDT Nadia Gagnon MA * BPAnswerDate of MiztfpkgtvLwkznh618/6012/06/2024 11:10 AM Nadia Ortega MA * PulseAnswerDate of StrfiwxxvgYolxqg5220/22/2025 11:10 AM Nadia Ortega MA * AiT1JfhbwlJles of FdplrudkzhAdqzdm4446/22/2025 11:10 AM Nadia Ortega MA * BP LocationAnswerDate of AssessmentAuthorLeft arm12/06/2024 11:10 AM EDT Nadia Gagnon MA * Patient PositionAnswerDate of HmouzqfdamZxcdlhVpwsohh75/22/2025 11:10 AM EDT Nadia Gagnon MA documented as of this encounter Plan of Treatment DateTypeDepartmentCare Team (Latest Contact Info)Purcabtfdvi91/17/2025 11:00 AM ESTOffice Visit [facility] Heart at [facility] [address] [place] [phone] Wali Collins MD [address] [place] [phone] documented as of this encounter Procedures Procedure NamePriorityDate/TimeAssociated DiagnosisCommentsCOMPLETE TRANSTHORACIC ECHO (TTE) W/WO IMAGING AGENT, STRAIN, 3D, BUBBLE STUDYRoutine 09/01/2024 3:12 PM EDTdocumented in this encounter Results * Complete Echo (TTE) w/wo Imaging Agent, Strain, 3D, Bubble Study (09/01/2024 3:12 PM EDT)Anatomical RegionLateralityModalityUltrasound Narrative Authorizing ProviderResult TypeResult StatusHistorical Provider [facility] ECHO PROCEDURESFinal Result documented in this encounter Visit Diagnoses Not on filedocumented in this encounter Care Teams Team MemberRelationshipSpecialtyStart DateEnd Date Thomas Alas MD [address] [facility] [place] [address] [address] PCP - GeneralFamily Medicine08/17/24documented as of this encounter
--- OUTSIDE RECORDS SUMMARY | 2024-12-16 22:44 | XMS_ITS | Encounter Summary ---
Author Organization [facility] Address [address] [place] [address] Care Team Providers Care Electronic Train Control Technician Name Role Phone Thomas Alas MD Primary Care Provider [phone] Encounter Details DateTypeDepartmentCare Team (Latest Contact Info)Qtxfhsefgkk59/30/2025Travel Social History Tobacco UseTypesPacks/DayYears UsedDateSmoking Tobacco: NeverSmokeless Tobacco: NeverAlcohol UseStandard Drinks/WeekCommentsNot Currently0 (1 standard drink = 0.6 oz pure alcohol)[facility] UtilitiesAnswerDate RecordedIn the past 12 [...] 11/15/2024CommentsNoSex and Gender InformationValueDate RecordedSex Assigned at OlenmAnjhtd21/03/2025 3:45 PM EDTLegal EkgBagooo21/30/2022 12:07 AM EDTGender UgskuetmFnyjgw29/03/2025 3:45 PM EDTSexual OrientationHeterosexual or Pwpjoaqx63/03/2025 3:45 PM EDTdocumented as of this encounter Functional Status * QuestionAnswerDate of QfpompbzepRivwlaDY973/7012/14/2024 10:30 AM Aisha Hernandez RNPulse7312/14/2024 10:30 AM Aisha Hebert RNHeart Rate QwnbyyKdnghbh19/30/2025 10:30 AM Aisha Hebert RNPatient Position Lying12/14/2024 10:30 AM Aisha Hebert RN * Pain Assessment TimerQuestionAnswerDate of AssessmentAuthorRestart Pain Assessment GqgvwNrj22/30/2025 10:30 AM Aisha Hebert RN * Pain AssessmentQuestionAnswerDate of AssessmentAuthorPain LocationAbdomen 12/14/2024 7:50 AM Mayda Ortiz RNPain EkpszfdvpgfBix34/30/2025 7:50 AM Mayda Ortiz RNWong-Jillian FACES Pain Cxxiwr465/30/2025 10:01 AM Aisha Hebert RNRamsay Scale (RS): Beuyv661 10:30 AM Aisha Hebert RNPain TypeAcute pain;Chronic pain12/14/2024 7:50 AM EDT Mayda Gray RNPain Dltbj310 7:50 AM EDMayda Patel RNPain AssessmentNo/denies pain12/14/2024 10:30 AM Aisha Hebert RN * Head, Ears, Eyes, Nose, and Throat (HEENT)QuestionAnswerDate of Assessment AuthorHead, Ears, Eyes, Nose, and Throat (WDL)WDL1 10:30 AM EDT Aisha Louise RN * QuestionAnswerDate of AssessmentAuthorHead of Bed ElevatedHOB 301 10:30 AM Aisha Hebert RN * Vital SignsQuestionAnswerDate of ZhbauveypbDmdpwdPH228/7012/14/2024 10:30 AM Aisha Hebert QEKrrg36. 10:30 AM Aisha Hebert RN Temp hsgCtwssohm96/30/2025 10:30 AM Aisha Hebert RRCmalk3879/30/2025 10:30 AM Aisha Hebert AMLtkn8493/30/2025 10:30 AM Aisha Hebert, SSBsM588155/30/2025 10:30 AM Aisha Hebert RNHeart Rate Source Ttnroxi3012/14/2024 10:30 AM Aisha Hebert RNBP LocationLeft arm 12/14/2024 10:30 AM Aisha Hebert RNBP JetcvcVlpdfsbsk02/30/2025 10:30 AM Aisha Hebert RNPatient HqttxrvxEhttc59/30/2025 10:30 AM Aisha Hernandez, RN * QuestionAnswerDate of AssessmentAuthorLevel of BvjxheduuygmlArell88/30/2025 10:01 AM Aisha Hebert RNOrientation LevelOriented X41 10:01 AM Aisha Hebert RN * QuestionAnswerDate of AssessmentAuthorCardiac HqvgciHRX83/30/2025 10:30 AM EDT Aisha Louise RNCardiac ZwqvwgbwitHfmpkbm33/30/2025 10:01 AM EDT Aisha Louise RNCardiac TduqelzaUdmh63/30/2025 10:30 AM Aisha Hebert RNHeart SoundsS1, S212/14/2024 10:01 AM Aisha Hebert RN * GastrointestinalQuestionAnswerDate of AssessmentAuthorPassing FlatusNo 12/14/2024 10:01 AM Aisha Hebert, RNAbdominal TendernessSoft;Nontender 12/14/2024 10:01 AM Aisha Hebert RNBowel Sounds (All Quadrants) Rtkkzdk7312/14/2024 10:01 AM Aisha Hebert RNGastrointestinal (WDL)WDL 12/14/2024 10:30 AM Aisha Hebert, RNAbdomen InspectionSoft;Rounded 12/14/2024 10:01 AM Aisha Hebert RNGastrointestinal SymptomsNone 12/14/2024 10:30 AM Aisha Hebert, DEEBowel SoundsAll quadrants 12/14/2024 10:01 AM Aisha Hebert, DEE * Peripheral VascularQuestionAnswerDate of AssessmentAuthorPeripheral Vascular (WDL)WDL1 [...] Hebert RN * NeurologicalQuestionAnswerDate of AssessmentAuthorCognitionAppropriate judgement;Follows sxbancoo12/30/2025 7:50 AM Mayda Ortiz RNSpeech Clear12/14/2024 7:50 AM Mayda Ortiz RNNeuro (WDL)X1 7:50 AM Mayda Ortiz RNR Hand SvnkcVhqzrr92/30/2025 7:50 AM Mayda Dawson, RNL Hand UteceOgrktt41/30/2025 7:50 AM Mayda Ortiz, DEER Foot QoexcplfgknjPkxkhw50/30/2025 7:50 AM Mayda Ortiz RNL Foot HuxfkhswujjgBbzjiv39/30/2025 7:50 AM Mayda Ortiz RNNeuro IqlxjyfqUhyj72/30/2025 7:50 AM Mayda Ortiz RN Hand Grasp/Motor Function/Sensation AssessmentGrasp;Gigdoeouyihh93/30/2025 7:50 AM Mayda Ortiz, RNFacial CtkmnpibWbrucuumdoe78/30/2025 7:50 AM Mayda Ortiz RN * QuestionAnswerDate of QaljfleelqEjwwvlVXHV3266/30/2025 10:00 AM EDTInterface, Device In * Pain AssessmentQuestionAnswerDate of AssessmentAuthorPain LocationAbdomen 12/14/2024 7:50 AM Mayda Ortiz RNPain FfnnvkqzfikEwd15/30/2025 7:50 AM Mayda Ortiz RNWong-Walsh FACES Pain Ejfwrm552/30/2025 10:01 AM Aisha Hebert RNRamsay Scale (RS): Nxnso733 10:30 AM Aisha Hebert RNPain TypeAcute pain;Chronic pain12/14/2024 7:50 AM Mayda Dawson RNPain Kuwwa487 7:50 AM Mayda Ortiz RNPain AssessmentNo/denies pain12/14/2024 10:30 AM Aisha Hebert RN * IntegumentaryQuestionAnswerDate of AssessmentAuthorIntegumentary (WDL)WDL 12/14/2024 7:50 AM Mayda Ortiz RN * Gallia Suicide Severity Rating ScaleQuestionAnswerDate of AssessmentAuthor1. Have [...] Mayda Dawson RN * Modified AldreteQuestionAnswerDate of SdjdaowpnfFxvbewWojgijqv307/30/2025 10:30 AM Aisha Hebert RNRespiration21 10:30 AM Aisha Hernandez RNCirculation21 10:30 AM Aisha Hebert RN Pigjrkbtmydcs098/30/2025 10:30 AM EDAisha Moreno, RNOxygen Saturation2 12/14/2024 10:30 AM EDAisha Moreno RNModified Jesi Wrslz9877/30/2025 10:30 AM Aisha Hebert RN documented as of this encounter Mental Status * Modified AldreteQuestionAnswerEntry IgteXciulgXfuelase172/30/2025 10:30 AM EDT Aisha Louise WJHxouagbbjho411/30/2025 10:30 AM EDAisha Moreno RN Gszyvxfasjf083/30/2025 10:30 AM EDAisha Moreno RNConsciousness2 12/14/2024 10:30 AM EDAisha Moreno, DEEOxygen Vegqfastyk782/30/2025 10:30 AM EDAisha Moreno RNModified Jesi Dsqds4228/30/2025 10:30 AM EDAisha Munoz RN documented in this encounter Plan of Treatment DateTypeDepartmentCare Team (Latest Contact Info)Oabqghouxqj56/17/2025 11:00 AM ESTOffice Visit [facility] [address] [place] [phone] Wali Collins MD [address] [place] [phone] documented as of this encounter Visit Diagnoses Not on filedocumented in this encounter Care Teams Team MemberRelationshipSpecialtyStart DateEnd Date Thomas Alas MD [address] [facility] [address] [address] PCP - GeneralFamily Medicine08/17/24documented as of this encounter
--- OUTSIDE RECORDS SUMMARY | 2024-12-16 22:44 | XMS_ITS | Clinical Summary ---
Author Organization [facility] Address [id number] [address] [place] [address] Care Team Providers Care Repair Weaver Name Role Phone No Pcp, No Pcp Primary Care Provider Unavailabl e Allergies Active AllergyReactionsCriticalityNoted BlbjRvxyelymNecelfa03/18/2018 Medications MedicationSigDispense QuantityRefillsLast FilledStart DateEnd DateStatus levothyroxine [...] breakfast.Active lancets (ONETOUCH DELICA LANCETS) 33 gauge [facility] [place] Indications:Abnormal glucose tolerance affecting , antepartumOne touch [...] Problems ProblemNoted DateDiagnosed DateHypothyroidism affecting in second jhytecnvs20/08/2018 Family History Medical HistoryRelationNameCommentsThyroid diseaseFatherDiabetesMaternal GrandfatherHypertensionMaternal GrandfatherThyroid diseaseMaternal Grandfather HypertensionMaternal GrandmotherDiabetesMotherHypertensionMotherHypertension Paternal GrandfatherDiabetesPaternal GrandmotherHypertensionPaternal Grandmother Thyroid diseasePaternal GrandmotherRelationNameStatusCommentsFatherMaternal GrandfatherMaternal GrandmotherDeceasedMotherPaternal GrandfatherPaternal GrandmotherDeceased Social History Tobacco UseTypesPacks/DayYears UsedDateSmoking Tobacco: NeverSmokeless Tobacco: NeverAlcohol UseStandard Drinks/WeekCommentsNo0 (1 standard drink = 0.6 oz pure alcohol)ChildcareAnswerDate PfsbbxtcYrwnytudaOjkipjk52/09/2019EmploymentAnswer Date MhmyfhmmBrqdrmlowpJshpzgi77/09/2019Purpose - LifeAnswerDate RecordedPurpose and direction in mshmGuwjequ40/11/2021CommentsNoSex and Gender InformationValueDate RecordedSex Assigned at BirthNot on fileLegal SexFemale 09/20/2014 11:41 AM EDTGender IdentityNot on fileSexual OrientationNot on file Last Filed Vital Signs Vital SignReadingTime TakenCommentsBlood Zmcxttuu637/71003/15/2019 9:28 AM EST Bdzxa990103/15/2019 9:28 AM ESTTemperature--Respiratory Rate--Oxygen Saturation-- Inhaled Oxygen Concentration--Ubazsf679 kg (262 lb 5.6 oz)03/15/2019 9:28 AM EST Vetxyc360.2 cm (5' 7 )01/16/2019 8:31 AM ESTBody Mass Index41.0901/16/2019 8:31 AM EST Plan of Treatment Health MaintenanceDue DateLast DoneCommentsDepression Qhdrquynz54/17/2002Tobacco Plvwlyaes76/17/2002Adult BMI Nhijylwee34/17/2008DTaP,Tdap and Td Vaccines (1 - Tdap)2008Pap Smear2010Influenza Atyntry2810/16/2024 Medical Devices Not on file Insurance Care Teams Team MemberRelationshipSpecialtyStart DateEnd Date No Pcp, No Pcp [place] [id number] [facility]
--- OUTSIDE RECORDS SUMMARY | 2024-12-16 22:45 | XMS_ITS | Clinical Summary ---
Author Organization [facility] Address [address], [address] [place] [address] Care Team Providers Care Customer Retention Representative Name Role Phone Thomas Alas MD Primary Care Provider [phone] Allergies Active AllergyReactionsCriticalityNoted DateCommentsAdhesive TapeOther (See Comments)Aujihh2602/07/2020 Sensitive to certain adhesive tapes. Redness and itchy. CodeineNausea And WgjplgxcFcl85/09/2025NsaidsOther (See Comments)01/29/2022 Gastric bypass S/p RYGB S/p RYGB Oxycodone-PngdpgkxfmdjfLmbqarwmfklFftt07/30/2023Wound Dressing AdhesiveOther (See Comments)Qfbdyw9102/07/2020 Sensitive to certain adhesive tapes. Redness and [...] MG tablet Take 1 tablet by mouth ijryfmr56/5Active ranolazine (RANEXA) 500 MG extended release tablet [...] tablet by mouth 2 times daily as iwwilw35/Expired cephALEXin (KEFLEX) 500 MG capsule Take 1 capsule by mouth 3 times daily for 7 days 21 capsule /Expired phenazopyridine (PYRIDIUM) 200 MG tablet Take 1 tablet by mouth 3 times daily as needed for Pain (bladder spasm/pain) 6 tablet /Expired Active Problems ProblemNoted DateDiagnosed DateIntractable nausea and fgkrlsul24/14/2023 Encounters DateTypeDepartmentCare ApmcLvofqrwynpt95/27/2025Results Follow-Up [facility] Emergency Department [address] [place], [place] [id number] Kera Smith RN 12/04/2024 2:32 PM EDT - 12/04/2024 6:[facility] [address] [place], [place] [id number] Hematuria, unspecified type (Primary Dx) Discharge Disposition: Home or Self Care12/04/20241935Xcrslu97/18/2025 10:18 AM EDT - 12/02/2024 12:37 PM [facility] [address] [place], [place] [id number] Gross hematuria (Primary Dx); Painful bladder spasm; Right flank pain Discharge Disposition: Home or Self Care12/02/20243657Jruuqc70/09/2025 5:32 PM EDT - 11/23/2024 8:[facility] [address] [place], [place] [id number] Shelley Sanz DO Acute urinary retention (Primary Dx); Acute UTI Discharge Disposition: Home or Self Care11/23/20247217Ldcrgr98/01/2025 1:15 PM EDT - 11/15/2024 6:50 PM [facility] [address] [place] [address] Jory Hurd DO Chest pain, unspecified type (Primary Dx) Discharge Disposition: Another [facility] Rqglpglu63/01/6468Dgnjcp14/24/2025 12:31 PM EDT - 11/09/2024 8:42 [facility] [address] [place] [address] Oc Graham MD Chest pain, unspecified type (Primary Dx) Discharge Disposition: Another [facility] Oyeduzts96/24/2025Travelfrom Last 3 Months Social History Tobacco UseTypesPacks/DayYears [...] Safety Domain Source: IP Abuse ScreeningAnswerDate RecordedPhysical ohhoxRqdsaf50/18/2025 Verbal pgpvgQkwemy70/18/2025Emotional orxkmKocren15/18/2025Financial abuseDenies 12/02/2024Sexual ycywyXusqim76/18/2025CommentsNoSex and Gender InformationValueDate RecordedSex Assigned at BirthNot on fileLegal SexFemale 04/12/2013 2:41 PM ESTGender IdentityNot on fileSexual OrientationNot on file Last Filed Vital Signs Vital SignReadingTime TakenCommentsBlood Upwyjrxc416/4612/04/2024 6:01 PM EDT Oynkr252312/04/2024 2:30 PM ZGFCssmhfqyood26.7 ??C (98.1 ??F)12/04/2024 2:30 PM EDTRespiratory Dayv1202 2:30 PM EDTOxygen Ocdmetkalr13%12/04/2024 6:01 PM EDTInhaled Oxygen Concentration--Kpjogt21.6 kg (180 lb)12/02/2024 10:14 AM LGTRrywir238.6 cm (5' 6 )12/02/2024 10:14 AM EDTBody Mass Index29.0512/02/2024 10:14 AM EDT Plan of Treatment Health MaintenanceDue DateLast OyvlLxbwwugsHymjgl61/17/2000Depression Screen 2001Varicella vaccine (1 of 2 - 13+ 2-dose series)2002HIV screen 2004Hepatitis C sgmbya0504/03/2007Hepatitis B vaccine (1 of 3 - 19+ 3-dose series)2008Flu vaccine (#1)509/, 11/16/2021, 01/01/2021, Additional history existsCOVID-19 Vaccine ( - 2024- season)2024 02/18/2021, 1DTaP/Tdap/Td vaccine (2 - Td [...] DiagnosisCommentsCT UROGRAMSTAT 12/04/2024 4:29 PM EDT MICROSCOPIC BYIVBHARJBIetuepw59/20/2025 2:55 PM EDT PUVVYZMEGPXNME00/20/2025 2:55 PM EDT CULTURE, EPXHSRCRU29/20/2025 2:55 PM EDT PROTIME-OQLLMKT3712/04/2024 2:53 PM EDT BASIC METABOLIC TJKVPKYQI84/20/2025 2:53 PM EDT CBC WITH AUTO RTGKMUCPENHEDTVO16/20/2025 2:53 PM EDT MICROSCOPIC JMGWVGWWQXXfduwau89/18/2025 11:54 AM EDT URINALYSIS WITH REFLEX TO ZJYYVJZKTHH11/18/2025 11:[address] ABDOMEN PELVIS WO FRFMSSUXZGQM47/18/2025 11:30 AM EDT VCQCHFCFCVMQS16/18/2025 11:12 AM EDT LACTIC NUKPATYQ96/18/2025 11:12 AM EDT CBC WITH AUTO ICDDTLIGMMSUNCSN10/18/2025 11:12 AM EDT COMPREHENSIVE METABOLIC ENZMRHALA47/18/2025 11:12 AM EDT EKG 12-CWTMHtmooks90/09/2025 6:44 PM EDT ULLKIPZWBYHU17/09/2025 6:16 PM EDT BASIC METABOLIC YSTKKKTUX58/09/2025 6:16 PM EDT CBC WITH AUTO XESGYFJQMLRTXVJT20/09/2025 6:16 PM EDT MICROSCOPIC GCAOZURLNGIuhfhfz95/09/2025 5:40 PM EDT URINALYSIS WITH REFLEX TO NTWULQSGVAL76/09/2025 5:40 PM EDT WBSHIUTOIUKX57/01/2025 2:35 PM EDT QULDSMHB33/01/2025 1:25 PM EDT PROTIME-EIPFMCX4911/15/2024 1:25 PM EDT BRAIN NATRIURETIC DMUHZASRSZF48/01/2025 1:25 PM EDT JTCHLYSIJVZY16/01/2025 1:25 PM EDT CBC WITH AUTO FKVECJDTUJZBVIJC69/01/2025 1:25 PM EDT BASIC METABOLIC QCXTKUKRS52/01/2025 1:25 PM EDT XR CHEST OGTDFWDQTDGT99/01/2025 1:24 PM EDT EKG 12-AXSKIWAT10/01/2025 1:19 PM EDT POCT YTQVWEHQdiavom91/24/2025 11:06 PM EDT POCT GWXHACMXCOH43/24/2025 11:06 PM EDT POCT SUKPWCTNRDE19/24/2025 8:09 PM EDT POCT GGEJDOAKjiekrb93/24/2025 7:55 PM EDT IEMTSJEHPVAA71/24/2025 6:38 PM EDT POCT YFKCOHHOuvzacq85/24/2025 4:04 PM EDT EKG 12-HYZFXBQO58/24/2025 4:01 PM EDT POCT KNHVOWARfvzpsi36/24/2025 2:03 PM EDT CTA CHEST ABDOMEN PELVIS W WO LNRPMBTUODWI39/24/2025 1:43 PM EDT PROTIME-NMJQDOP7311/08/2024 1:39 PM EDT PRSHHIPX64/24/2025 1:39 PM EDT POCT OINHNYSRFKGFJW42/24/2025 1:16 PM EDT POCT GWSKZJGivltue69/24/2025 1:14 PM EDT HBUEXKCTQRGN34/24/2025 12:50 PM EDT COMPREHENSIVE METABOLIC PANEL W/ REFLEX TO MG FOR LOW KSTAT11/08/2024 12:50 PM EDT CBC WITH AUTO LXKXBCQMMQDGTHUD39/24/2025 12:50 PM EDT POCT CEGAEGDJywefyo56/24/2025 12:38 PM EDT EKG 12-WUQGBoeuaxi55/24/2025 12:37 PM EDT from Last 3 Months [...] change noted. Authorizing ProviderResult TypeResult StatusMarciemily Marion MAILMASTER - CNPIMG CT ORDERABLESFinal Result * (ABNORMAL) Microscopic Urinalysis (12/04/2024 2:55 PM EDT) Only the most recent of3 resultswithin the time period is included. ComponentValueRef RangeTest MethodAnalysis TimePerformed AtPathologist Signature WBC, UA2 TO 50 - 5 /HPF12/04/2024 2:55 PM [facility] RBC, UAGREATER THAN 1000 - 2 /HPF12/04/2024 2:55 PM [facility] LABEpithelial Cells, UA0 TO 20 - 25 /HPF12/04/2024 2:55 PM [facility] LABBacteria, UA2+(A)None12/04/2024 2:55 PM [facility] LABSpecimen (Source)Anatomical Location / Laterality Collection Method / VolumeCollection TimeReceived Time12/04/2024 2:55 PM EDT 12/04/2024 3:03 PM EDT Narrative Authorizing ProviderResult TypeResult StatusMarciemily Marion MAILMASTER - CNPURINE ORDERABLESFinal ResultPerforming OrganizationAddressCity/State/ZIP CodePhone Number [facility] [address] [phone] * (ABNORMAL) Urinalysis (12/04/2024 2:55 PM EDT)ComponentValueRef RangeTest MethodAnalysis TimePerformed AtPathologist SignatureColor, UARed(A)Yellow 12/04/2024 2:55 PM [facility] LABTurbidity UAClearClear 12/04/2024 2:55 PM [facility] LABGlucose, UrNEGATIVE NEGATIVE mg/dL12/04/2024 2:55 PM [facility] LABBilirubin, AqlmtVWBXGPMLEDZEKXQK69/20/2025 2:55 PM [facility] Ketones, Urine1+(A)NEGATIVE mg/dL12/04/2024 2:55 PM [facility] LABSpecific [place], UA1.0201.010 - 1.7310612/04/2024 2:55 PM [facility] LABUrine Hgb3+(A)DHZVTOUN25/20/2025 2:55 PM [facility] LABpH, Urine7.05.0 - 9.010 2:55 PM [facility] LABProtein, UA2+(A)NEGATIVE mg/dL12/04/2024 2:55 PM EDT [facility] LABUrobilinogen, UrineELEVATED0.0 - 1.0 EU/dL 12/04/2024 2:55 PM [facility] LABNitrite, UrinePOSITIVE (A)AHVMBINY09/20/2025 2:55 PM [facility] LABLeukocyte Esterase, UrineSMALL(A)VEOWDBAO58/20/2025 2:55 PM [facility] LABSpecimen (Source)Anatomical Location / LateralityCollection Method / VolumeCollection TimeReceived TimeUrineURINE SPECIMEN / Wybmpwb7212/04/2024 2:55 PM EDT1 3:03 PM EDT Narrative Authorizing ProviderResult TypeResult StatusNeeta Marion MAILMASTER - CNPURINE ORDERABLESFinal ResultPerforming OrganizationAddressCity/State/ZIP CodePhone Number [facility] [address] [phone] * (ABNORMAL) Culture, Urine (12/04/2024 2:55 PM EDT)ComponentValueRef RangeTest MethodAnalysis TimePerformed AtPathologist SignatureSpecimen Description.CLEAN CATCH URINE12/04/2024 2:55 PM [facility] LABSpecial RequestsSite: Urine12/04/2024 2:55 PM [facility] CulturePSEUDOMONAS FLUORESCENS >100,000 CFU/ML(A)12/04/2024 2:55 PM ED[facility] LABORATORIESCultureSTENOTROPHOMONAS (XANTHOMONAS) MALTOPHILIA >100,000 CFU/ML (A)12/04/2024 2:55 PM EDMER[facility] LABORATORIESSpecimen (Source)Anatomical Location / LateralityCollection Method / VolumeCollection TimeReceived Time UrineURINE SPECIMEN / Cffajcx3812/04/2024 2:55 PM EDT1 6:26 PM EDT Narrative OrganismAntibioticMethodSusceptibilityPseudomonas fluorescenslevofloxacin BACTERIAL SUSCEPTIBILITY PANEL SANDHYA 0.5: Sensitive Pseudomonas fluorescenspiperacillin-tazobactamBACTERIAL SUSCEPTIBILITY PANEL SANDHYA 8: Sensitive Stenotrophomonas maltophilialevofloxacinBACTERIAL SUSCEPTIBILITY PANEL SANDHYA 0.25: Sensitive Stenotrophomonas maltophiliatrimethoprim-sulfamethoxazoleBACTERIAL SUSCEPTIBILITY PANEL SANDHYA <=20: Sensitive Authorizing ProviderResult TypeResult StatusMarcia A Doni MAILMASTER - RESIN COATER MICROBIOLOGY - GENERAL ORDERABLESFinal ResultPerforming OrganizationAddress City/State/ZIP CodePhone Number [facility] [address] [place] [address], [facility] [phone] [facility] [address] [place] [address], [facility] [phone] * (ABNORMAL) CBC with Auto Differential (12/04/2024 2:53 PM EDT) Only the most recent of5 resultswithin the time period is included. ComponentValueRef RangeTest MethodAnalysis TimePerformed AtPathologist Signature WBC4.13.5 - 11.3 k/uL12/04/2024 2:53 PM [facility] LABRBC 3.21(L)3.95 - 5.11 m/uL12/04/2024 2:53 PM [facility] Hemoglobin9.4(L)11.9 - 15.1 g/dL12/04/2024 2:53 PM [facility] FOJYhyugxaopd39.2(L)36.3 - 47.1 %12/04/2024 2:53 PM [facility] VWOKAQ83.982.6 - 102.9 fL12/04/2024 2:53 PM [facility] FPORGP68.325.2 - 33.5 pg12/04/2024 2:53 PM [facility] VJWTYDA10.328.4 - 34.8 g/dL12/04/2024 2:53 PM [facility] UNEBNL44.711.8 - 14.4 %12/04/2024 2:53 PM [facility] SNCUzzvzhgbg106668 - 453 k/uL12/04/2024 2:53 PM [facility] RFAPWK38.68.1 - 13.5 fL12/04/2024 2:53 PM [facility] LABNRBC Automated0.00.0 per 100 WBC12/04/2024 2:53 PM [facility] LABNeutrophils %5136 - 65 %12/04/2024 2:53 PM [facility] LABLymphocytes %3724 - 43 %12/04/2024 2:53 PM [facility] LABMonocytes %93 - 12 %12/04/2024 2:53 PM [facility] LABEosinophils %21 - 4 %12/04/2024 2:53 PM [facility] LABBasophils %10 - 2 %12/04/2024 2:53 PM [facility] LABImmature Granulocytes %00 %12/04/2024 2:53 PM [facility] LABNeutrophils Absolute2.091.50 - 8.10 k/uL12/04/2024 2:53 PM [facility] LABLymphocytes Absolute1.491.10 - 3.70 k/uL12/04/2024 2:53 PM [facility] LABMonocytes Absolute0.360.10 - 1.20 k/uL12/04/2024 2:53 PM [facility] LABEosinophils Absolute 0.080.00 - 0.44 k/uL12/04/2024 2:53 PM [facility] Basophils Absolute0.040.00 - 0.20 k/uL12/04/2024 2:53 PM [facility] LABImmature Granulocytes Absolute<0.030.00 - 0.30 k/uL12/04/2024 2:53 PM [facility] LABSpecimen (Source)Anatomical Location / LateralityCollection Method / VolumeCollection TimeReceived TimeBloodBLOOD SPECIMEN / Itovcza7012/04/2024 2:53 PM EDT1 3:02 PM EDT Narrative Authorizing ProviderResult TypeResult StatusMarpapa Marion MAILMASTER - RESIN COATER HEMATOLOGY ORDERABLESFinal ResultPerforming OrganizationAddressCity/State/ZIP CodePhone Number [facility] [address] [place] [address], [facility] [phone] * Protime-INR (12/04/2024 2:53 PM EDT) Only the most recent of3 resultswithin the time period is included. ComponentValueRef RangeTest MethodAnalysis TimePerformed AtPathologist Signature Grtuizz14.112.0 - 15.0 sec12/04/2024 2:53 PM [facility] INR1.110 2:53 PM [facility] LABComment: ? Therapeutic Range: Moderate Anticoagulant Intensity: INR = 2.0-3.0 High Anticoagulant Intensity: INR = 2.5-3.5 Specimen (Source)Anatomical Location / LateralityCollection Method / Volume Collection TimeReceived TimeBloodBLOOD SPECIMEN / Pbekyil1712/04/2024 2:53 PM EDT 12/04/2024 3:02 PM EDT Narrative Authorizing ProviderResult TypeResult StatusMarciemily Marion MAILMASTER - RESIN COATER HEMATOLOGY ORDERABLESFinal ResultPerforming OrganizationAddressCity/State/ZIP CodePhone Number [facility] [address] [phone] * (ABNORMAL) BMP (12/04/2024 2:53 PM EDT) Only the most recent of3 resultswithin the time period is included. ComponentValueRef RangeTest MethodAnalysis TimePerformed AtPathologist Signature Kynaku695776 - 145 mmol/L1 2:53 PM [facility] Potassium3.93.7 - 5.3 mmol/L1 2:53 PM [facility] FUNJfxmnyym409(H)98 - 107 mmol/L1 2:53 PM [facility] SQMGB79396 - 31 mmol/L1 2:53 PM [facility] LABAnion Gap8(L)9 - 16 mmol/L1 2:53 PM [facility] BKIYbaafjz3075 - 99 mg/dL12/04/2024 2:53 PM [facility] YWMFUN52 - 20 mg/dL12/04/2024 2:53 PM [facility] LABCreatinine0.60.50 - 0.90 mg/dL12/04/2024 2:53 PM [facility] LABEst, Glom Filt Rate>90>60 mL/min/1.07t87712/04/2024 2:53 PM [facility] LABComment: ? These results are not [...] therapy that affects renal tubular secretion. BUN/Creatinine Pjtgx017 - 2:53 PM [facility] LABCalcium8.2(L)8.6 - 10.4 mg/dL12/04/2024 2:53 PM [facility] LABSpecimen (Source)Anatomical Location / LateralityCollection Method / VolumeCollection TimeReceived TimeBloodBLOOD SPECIMEN / Dvkkftu1812/04/2024 2:53 PM EDT1 3:02 PM EDT Narrative Authorizing ProviderResult TypeResult StatusMarciemily Marion MAILMASTER - CNPCHEMISTRY ORDERABLESFinal ResultPerforming OrganizationAddressCity/State/ZIP CodePhone Number [facility] [address] [phone] * (ABNORMAL) Urinalysis with Reflex to Culture (12/02/2024 11:54 AM EDT) Only the most recent of2 resultswithin the time period is included. ComponentValueRef RangeTest MethodAnalysis TimePerformed AtPathologist Signature Color, UARed(A)Rsgfqf3912/02/2024 11:54 AM [facility] Turbidity QQYtbfoLbzzx99/18/2025 11:54 AM [facility] Glucose, UrNEGATIVENEGATIVE mg/dL12/02/2024 11:54 AM [facility] LABBilirubin, NcirqSHMHLEYZTALLIOZO71/18/2025 11:54 AM [facility] LABKetones, UrineNEGATIVENEGATIVE mg/dL12/02/2024 11:54 AM EDT [facility] LABSpecific [place], UA1.0101.010 - 1.1174112/02/2024 11:54 AM [facility] LABUrine Hgb3+(A)LXUSNFXJ04/18/2025 11:54 AM [facility] LABpH, Urine7.05.0 - 9.010 11:54 AM [facility] LABProtein, UATRACE(A)NEGATIVE mg/dL 12/02/2024 11:54 AM [facility] LABUrobilinogen, UrineNormal 0.0 - 1.0 EU/dL12/02/2024 11:54 AM [facility] LABNitrite, SswftDTPJHAKZZRFSMOLS13/18/2025 11:54 AM [facility] Leukocyte Esterase, DzftgHQBKFYTMECQEBUMH70/18/2025 11:54 AM [facility] LABSpecimen (Source)Anatomical Location / LateralityCollection Method / VolumeCollection TimeReceived TimeURINE SPECIMEN / Amuhhdr8712/02/2024 11:54 AM EDT1 11:57 AM EDT Narrative Authorizing ProviderResult TypeResult StatusDavid Chrsi DUNCAN ORDERABLES Final ResultPerforming OrganizationAddressCity/State/ZIP CodePhone Number [facility] [address] [phone] * CT ABDOMEN PELVIS WO CONTRAST Additional [...] AtPathologist SignatureMagnesium1.81.6 - 2.6 mg/dL12/02/2024 11:12 AM [facility] LABSpecimen (Source)Anatomical Location / LateralityCollection Method / VolumeCollection TimeReceived Time BloodBLOOD SPECIMEN / Ewjowyt6612/02/2024 11:12 AM EDT1 11:14 AM EDT Narrative Authorizing ProviderResult TypeResult StatusDad Chris PA-CCHEMISTRY ORDERABLESFinal ResultPerforming OrganizationAddressCity/State/ZIP CodePhone Number [facility] [address] [place] [address] * Lactic Acid (12/02/2024 11:12 AM EDT)ComponentValueRef RangeTest Method Analysis TimePerformed AtPathologist SignatureLactic Acid0.80.5 - 2.2 mmol/L 12/02/2024 11:12 AM [facility] LABSpecimen (Source) Anatomical Location / LateralityCollection Method / VolumeCollection Time Received TimeBloodBLOOD SPECIMEN / Cinbtta6612/02/2024 11:12 AM EDT1 11:14 AM EDT Narrative Authorizing ProviderResult TypeResult StatusDajose [facility] Hospitalwilmar PA-CCHEMISTRY ORDERABLESFinal ResultPerforming OrganizationAddressCity/State/ZIP CodePhone Number [facility] [address] [place] [address], [facility] [phone] * (ABNORMAL) CMP (12/02/2024 11:12 AM EDT)ComponentValueRef RangeTest Method Analysis TimePerformed AtPathologist OpuqaaltbGbykpb507470 - 145 mmol/L 12/02/2024 11:12 AM [facility] LABPotassium3.93.7 - 5.3 mmol/L1 11:12 AM [facility] ZLZFdygriwz25300 - 107 mmol/L1 11:12 AM [facility] IIKTZ43298 - 31 mmol/L1 11:12 AM [facility] LABAnion Gap99 - 16 mmol/L1 11:12 AM [facility] RYOVufhadp0448 - 99 mg/dL12/02/2024 11:12 AM [facility] OVSKTK60 - 20 mg/dL 12/02/2024 11:12 AM [facility] LABCreatinine0.70.50 - 0.90 mg/dL12/02/2024 11:12 AM [facility] LABEst, Glom Filt Rate>90>60 mL/min/1.88h95312/02/2024 11:12 AM [facility] LABComment: ? These results are not [...] therapy that affects renal tubular secretion. BUN/Creatinine Mhelb344 - 11:12 AM [facility] LABCalcium8.4(L)8.6 - 10.4 mg/dL12/02/2024 11:12 AM [facility] LABTotal Protein6.0(L)6.6 - 8.7 g/dL12/02/2024 11:12 AM [facility] LABAlbumin3.73.5 - 5.2 g/dL12/02/2024 11:12 AM [facility] LABAlbumin/Globulin Ratio1.61.0 - 2.510 11:12 AM EDT [facility] LABTotal Bilirubin0.30.00 - 1.20 mg/dL12/02/2024 11:12 AM [facility] LABAlkaline Ennvucfofzz7323 - 104 U/L 12/02/2024 11:12 AM [facility] TORZTY40(H)10 - 35 U/L 12/02/2024 11:12 AM [facility] DQKFRW14(H)10 - 35 U/L 12/02/2024 11:12 AM [facility] LABSpecimen (Source) Anatomical Location / LateralityCollection Method / VolumeCollection Time Received TimeBloodBLOOD SPECIMEN / Lugdmes6012/02/2024 11:12 AM EDT1 11:14 AM EDT Narrative Authorizing ProviderResult TypeResult StatusDavid Chris GONZALEZADAMS COUNTY REG[facility] MEDICAL CENTEREMISTRY ORDERABLESFinal ResultPerforming OrganizationAddressCity/State/ZIP CodePhone Number [facility] [address] [phone] * EKG 12 Lead (11/23/2024 6:44 PM EDT) Only the most recent of4 resultswithin the time period is included. ComponentValueRef RangeTest MethodAnalysis TimePerformed AtPathologist Signature Ventricular Uepw37ZIHYTUG [facility] RADIOLOGYAtrial Gwqa41UVSUCJD [facility] RADIOLOGYP-R Ooxyerln514kcPLRH [facility] RADIOLOGYQRS Fyedsaob29xiGWSN [facility] RADIOLOGYQ-T Kaahyesg362 msMHPN [facility] RADIOLOGYQTc Calculation (Bazett)486msMHPN [facility] RADIOLOGYP Axis74 degreesMHPN [facility] RADIOLOGYR Ykjl06dgpgzjkFQXY [facility] RADIOLOGYT Jcvt03ifhksawQTZE [facility] RADIOLOGYSpecimen (Source)Anatomical Location / LateralityCollection Method / VolumeCollection TimeReceived Time11/23/2024 6:44 PM EDT Narrative MHPN [facility] RADIOLOGY - 11/23/2024 11:05 PM EDT Normal [...] on 11/23/2024 11:05:14 PM Authorizing ProviderResult TypeResult StatusChtayler Sanz DOECG ORDERABLES Final ResultPerforming OrganizationAddressCity/State/ZIP CodePhone Number [facility] RADIOLOG[facility] * Troponin (11/23/2024 6:16 PM EDT) Only the most recent of5 resultswithin the time period is included. ComponentValueRef RangeTest MethodAnalysis TimePerformed AtPathologist Signature Troponin, High Sensitivity<60 - 14 ng/L1 6:16 PM [facility] LABComment:High Sensitivity Troponin values cannot be compared with other Troponin methodologies.Specimen (Source)Anatomical Location / Laterality Collection Method / VolumeCollection TimeReceived TimeBloodBLOOD SPECIMEN / Amjjtsj6211/23/2024 6:16 PM EDT1 7:20 PM EDT Narrative Authorizing ProviderResult TypeResult StatusShelley Sanz DOCHEMISTRY ORDERABLESFinal ResultPerforming OrganizationAddressCity/State/ZIP CodePhone Number [facility] [address] [phone] * APTT (11/15/2024 1:25 PM EDT) Only the most recent of2 resultswithin the time period is included. ComponentValueRef RangeTest MethodAnalysis TimePerformed AtPathologist Signature APTT27.823.1 - 33.7 sec11/15/2024 1:25 PM [facility] Comment: ? IV Heparin Therapy Range: ?62.0-94.0 ? Specimen (Source)Anatomical Location / LateralityCollection Method / Volume Collection TimeReceived TimeBloodBLOOD SPECIMEN / Lmmaynl0811/15/2024 1:25 PM EDT 11/15/2024 1:49 PM EDT Narrative Authorizing ProviderResult TypeResult StatusJory Hurd DOHEMATOLOGY ORDERABLESFinal ResultPerforming OrganizationAddressCity/State/ZIP CodePhone Number [facility] [address] [place] [address] * (ABNORMAL) Brain Natriuretic Peptide (11/15/2024 1:25 PM EDT)ComponentValueRef RangeTest MethodAnalysis TimePerformed AtPathologist SignatureNT Pro-EUS629(H) 0 - 125 pg/mL11/15/2024 1:25 PM EDTMSELECT [facility] LABSpecimen (Source)Anatomical Location / LateralityCollection Method / VolumeCollection TimeReceived TimeBloodBLOOD SPECIMEN / Xcpwvae2011/15/2024 1:25 PM EDT1 1:49 PM EDT Narrative Authorizing ProviderResult TypeResult Jayme Hurd DOCHEMISTRY ORDERABLESFinal ResultPerforming OrganizationAddressCity/State/ZIP CodePhone Number [facility] [address] [place] [address] * XR CHEST PORTABLE (11/15/2024 1:24 PM [...] acute abnormalities. Authorizing ProviderResult TypeResult StatusAlemanda Hurd [facility] DIAGNOSTIC IMAGING ORDERABLESFinal Result * (ABNORMAL) POCT Glucose (11/08/2024 11:06 PM EDT) Only the most recent of7 resultswithin the time period is included. ComponentValueRef RangeTest MethodAnalysis TimePerformed AtPathologist Signature POC Wormqqg345(H)70 - 99 mg/dl11/08/2024 11:06 PM [facility] LABPerformed onACCU-CHEK11/08/2024 11:06 PM [facility] LABSpecimen (Source)Anatomical Location / LateralityCollection Method / VolumeCollection TimeReceived Time11/08/2024 11:06 PM EDT11/08/2024 11:19 PM EDT Narrative Authorizing ProviderResult TypeResult StatusUnknown Provider ResultPOINT OF CARE TEST ORDERABLESFinal ResultPerforming OrganizationAddressCity/State/ZIP Code Phone Number [facility] [address] [place] [address], [facility] [phone] * CTA CHEST ABDOMEN PELVIS W WO [...] post gastric bypass procedure. Authorizing ProviderResult TypeResult StatusOc Graham MDIMG CT ORDERABLESFinal Result * POCT Creatinine (11/08/2024 1:16 PM EDT)ComponentValueRef RangeTest Method Analysis TimePerformed AtPathologist SignaturePOC CREATININE WHOLE BLOOD0.6 Specimen (Source)Anatomical Location / LateralityCollection Method / Volume Collection TimeReceived TimeBLOOD SPECIMEN / Pvvqftk9711/08/2024 1:16 PM EDT Narrative Authorizing ProviderResult TypeResult StatusOc Graham MDPOINT OF CARE TEST ORDERABLESFinal Result * POCT Venous (11/08/2024 1:14 PM EDT)ComponentValueRef RangeTest MethodAnalysis TimePerformed AtPathologist SignaturePOC Creatinine0.60.6 - 1.2 mg/dL 11/08/2024 1:14 PM [facility] LABEst, Glom Filt Rate>90 >60011/08/2024 1:14 PM [facility] LABComment: Pediatric calculator link https://www.kidney.org/professionals/kdoqi/gfr_calculatorped Effective Nov [...] therapy that affects renal tubular secretion. Sample XadtSEH6011/08/2024 1:14 PM [facility] LABPerformed on SEE BELOW11/08/2024 1:14 PM [facility] LABComment:Performed on POCSpecimen (Source)Anatomical Location / LateralityCollection Method / VolumeCollection TimeReceived Time11/08/2024 1:14 PM EDT09/ 1:54 PM EDT Narrative Authorizing ProviderResult TypeResult StatusAlen Santos MDPOINT OF CARE TEST ORDERABLESFinal ResultPerforming OrganizationAddressCity/State/ZIP CodePhone Number [facility] [address] [place] [address], [facility] [phone] * (ABNORMAL) Comprehensive Metabolic Panel w/ Reflex to MG (11/08/2024 12:50 PM EDT)ComponentValueRef RangeTest MethodAnalysis TimePerformed AtPathologist WyhgexbhkItqack542183 - 144 mEq/L11/08/2024 12:59 PM [facility] LABPotassium reflex Magnesium3.63.4 - 4.9 mEq/L11/08/2024 12:59 PM [facility] ROIGcylcygt31821 - 107 mEq/L11/08/2024 12:59 PM [facility] [id number] - 31 mEq/L11/08/2024 12:59 PM [facility] LABAnion Gap99 - 15 mEq/L11/08/2024 12:59 PM [facility] VSAJsyizls3098 - 99 mg/dL11/08/2024 12:59 PM [facility] [id number] - 20 mg/dL11/08/2024 12:[address] LABCreatinine0.560.50 - 0.90 mg/dL11/08/2024 12:59 PM [facility] LABEst, Glom Filt Rate>90.0>60 11/08/2024 12:59 PM [facility] LABComment: Pediatric calculator link https://www.kidney.org/professionals/kdoqi/gfr_calculatorped Effective Nov [...] secretion. Calcium8.3(L)8.5 - 9.9 mg/dL11/08/2024 12:59 PM [facility] LABTotal Protein6.2(L)6.3 - 8.0 g/dL11/08/2024 12:59 PM [facility] LABAlbumin3.83.5 - 4.6 g/dL11/08/2024 12:59 PM [facility] LABTotal Bilirubin0.40.2 - 0.7 mg/dL11/08/2024 12:59 PM [facility] LABAlkaline Odpgjuqjcjg6143 - 130 U/L11/08/2024 12:[address] [facility] [id number] - 33 U/L11/08/2024 12:59 PM [facility] [id number] - 35 U/L11/08/2024 12:59 PM [facility] LABGlobulin2.42.3 - 3.5 g/dL11/08/2024 12:59 PM [facility] LABSpecimen (Source)Anatomical Location / LateralityCollection Method / VolumeCollection TimeReceived TimeBloodBLOOD SPECIMEN / Unknown 11/08/2024 12:50 PM EDT11/08/2024 12:50 PM EDT Narrative Authorizing ProviderResult TypeResult StatusAlen Santos MDCHEMISTRY ORDERABLES Final ResultPerforming OrganizationAddressCity/State/ZIP CodePhone Number [facility] [address] [place] [address], [facility] [phone] from Last 3 Months Insurance Advance Directives * Full Code (Latest Code Status on File) Date ActivatedDate WidrnancdvgDevxlvmw44/14/2023 11:57 AM12/03/2022 7:56 PM NameRelationshipHealthcare Agent RelationshipCommunicationEdna ArtinoParent Secondary Decision Maker* Roddy SinghpousePrimary Decision Maker* Care Teams Team MemberRelationshipSpecialtyStart DateEnd Date Thomas Alas MD [address] [phone] PCP - GeneralFamily Medicine11/08/24
--- OUTSIDE RECORDS SUMMARY | 2024-12-16 22:45 | XMS_ITS | Clinical Summary ---
Author Organization [facility] Address [address] [place] [address] Care Team Providers Care Senior Manager Quality Assurance Name Role Phone Britt Alas MD Primary Care Provider [phone] Allergies Active AllergyReactionsCriticalityNoted AwbsUfprfziwCfsfigqaUtsiUdh68/02/2025 Adhesive Tape-XcymmbdvxGoqnjFwrles15/23/2020 Sensitive to certain adhesive tapes. Redness and itchy. CodeineNausea And OgphyqrqPfsola35/02/2025Nsaids (Non-Steroidal Anti- Inflammatory Drug)GI dpopdjdkrcuNnkucm15/02/2909TbsbwyxeMcdtujs17/14/2024 Medications MedicationSigDispense QuantityRefillsLast FilledStart DateEnd DateStatus liothyronine [...] patch on the skin every 3rd (third) day.Active hydrocortisone (Cortef) 10 mg tablet [...] with breakfast for 120 doses. 30 tablet ctive clopidogrel (Plavix) 75 mg tablet Indications:Spontaneous dissection of coronary arteryTake 1 tablet (75 mg) by mouth in the morning for 120 doses. 30 tablet ctive metoclopramide (Reglan) 10 mg tablet Indications:GastroparesisTake 1 [...] bedtime for 99 doses. 30 tablet /5Active ranolazine (Ranexa) 500 mg 12 hr tablet Indications:Chest painTake 1 tablet (500 mg) by mouth two times daily for 189 doses. Do not crush, chew, or split. 60 tablet /6Active fentaNYL (Duragesic) 12 mcg/hr Place 1 patch on the skin every 3rd (third) day. Give with 25 mcg patchActive HYDROcodone-acetaminophen ([place]) 5-325 mg tablet Take 2 tablets by [...] 750 mg by mouth four times daily.12/04/2024Discontinued metFORMIN, OSM, (Fortamet) 500 mg 24 hr tablet Take 500 mg by mouth with breakfast and with evening meal. Do not crush, chew, or split.12/04/2024Discontinued naloxone (Narcan) 0.4 mg/mL injection Indications:Chronic narcotic useInfuse 1 mL (0.4 mg) into a venous catheter if needed for opioid reversal. 1 mL Expired colchicine 0.6 mg tablet Indications:Chest painTake 0.5 tablets (0.3 mg) by mouth every other day. Do not start before November 14, 2024. 8 tablet Expired cefpodoxime (Vantin) 200 mg tablet Take 1 tablet (200 mg) by mouth two times daily for 7 days. 14 tablet Expired Additional Information Patient not taking.Reported on 12/06/2024 Active Problems ProblemNoted DateDiagnosed DateAbnormal thyroid blood test12/05/2024llergic hlotdxiznggsqd95/21/4359Tbouxvyu08/21/2025 Overview (12/05/2024): Problem List clean-up per request of Phys. EHR Cmte Edema12/05/20240885Asdyryemgons88/21/9288Tisgouscdsh32/21/2025Otitis media of left ear12/05/2024Postgastric surgery qpmebzdh47/21/9209Knhxyokhp53/21/2025 Overview (12/05/2024): Problem List clean-up per request of Phys. SKY Cmte Common bile duct ahbzbngqex21/02/2025 Assessment & Plan (11/16/2024 2:13 AM EDT): CT chest/abd/pelvis noted CBD dilation and apperance of complex inflammatory changes. Patient has required multiple doses of opiates and antiemetics to control symptoms. Request to transfer to the [facility] where much of her advanced care has been provided with Specific concern that she may need ERCP/advanced endoscopy to further evaluation Pain management GI consult Disorder of endocrine hrelpv8111/09/2024Lumbar hivpifmhltghy63/25/2025Migraine 11/09/2024Severe protein-calorie malnutrition ([place]: less than 60% of standard weight)11/09/2024Pseudoaneurysm of right femoral uobihb4111/09/2024 Assessment & Plan (11/12/2024 12:39 PM EDT): [...] pseudoaneurysm 11/02 -stable - follow Hgb Myocardial ytluuv6311/09/2024 Assessment & Plan (11/12/2024 12:39 PM EDT): [...] need to uptitrate verapamil if BP allows Mimlbdfo03/18/2025Chest pain10/30/2024 Assessment & Plan (11/16/2024 2:13 AM [...] without complication, without long-term current use of vcxkupe4410/30/2024 Assessment & Plan (11/12/2024 12:39 PM EDT): [...] at home, will begin ISS, ACHS Primary qchozssupkep20/15/2025Other wdypcueqoiwqoz99/15/0996Msezue06/15/2025 Assessment & Plan (11/02/2024 1:29 PM EDT): [...] Stable, last BM yesterday Median arcuate ligament gtrzaesg22/15/2025 Assessment & Plan (11/12/2024 12:39 PM EDT): [...] and then MALS release S/P laparoscopic sleeve yjfaofzykod45/15/2025 Assessment & Plan (11/12/2024 12:39 PM EDT): [...] 9:00 PM EDT): - Stable Protein calorie lutzlgumohxj63/15/2025 Assessment & Plan (11/02/2024 1:29 PM EDT): [...] pain today patient brought urgently back to Technology Adoption Manager Assessment & Plan (11/01/2024 11:57 AM EDT): [...] -Pending TTE, cath Spontaneous dissection of coronary azearq4210/30/2024 Assessment & Plan (11/12/2024 12:39 PM EDT): [...] pain today patient brought urgently back to Technology Adoption Manager Feeding gddhapxgipmn42/09/2025roken central line09/21/2024Long term (current) use of opiate wuavwjnqs48/07/2025Poor response to enteral nzkfmyznt23/28/2025 Sepsis due to Qkrjspyvza81/04/2025 Assessment & Plan (08/19/2024 1:03 PM EDT): - source is likely the cellulitis around the J-tube status post J-tube removal. - CT scan from [facility] showing no abscess. - Infectious disease recommendations appreciated, continue with ceftriaxone. - Repeat blood cultures on 08/16: NGTD - central line in place, does not look like infected, continue monitoring, central line care. Assessment & Plan (08/18/2024 12:20 PM EDT): - source is likely the cellulitis around the J-tube status post J-tube removal. - CT scan from [facility] showing no abscess. - Infectious disease recommendations appreciated, continue with ceftriaxone. - Repeat blood cultures on 08/16: NGTD - central line in place, does not look like infected, continue monitoring, central line care. Sepsis due to Rtwtvmclpgib85/04/2025 Assessment & Plan (08/19/2024 1:03 PM EDT): - source is likely the cellulitis around the J-tube status post J-tube removal. - CT scan from [facility] showing no abscess. - Infectious disease recommendations appreciated, continue with ceftriaxone. - Repeat blood cultures on 08/16: NGTD - central line in place, does not look like infected, continue monitoring, central line care. Assessment & Plan (08/18/2024 12:20 PM EDT): - source is likely the cellulitis around the J-tube status post J-tube removal. - CT scan from [facility] showing no abscess. - Infectious disease recommendations appreciated, continue with ceftriaxone. - Repeat blood cultures on 08/16: NGTD - central line in place, does not look like infected, continue monitoring, central line care. Qhgycrrxezejz34/04/2025 Assessment & Plan (11/12/2024 12:39 PM EDT): [...] admission. - As needed antiemetics Chronic pain atvpcuxp14/04/2025 Assessment & Plan (11/12/2024 12:39 PM EDT): [...] and scheduled tramadol. Continue with as needed [place]. Assessment & Plan (08/18/2024 12:20 PM EDT): - continue with home meds including fentanyl patch and scheduled tramadol. Continue with as needed [place]. 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 Assessment & Plan (08/18/2024 12:20 PM EDT): - status postresection. History of adrenal vsbkkfuvygnjx09/04/2025 Assessment & Plan (11/12/2024 12:39 PM EDT): [...] PM EDT): - continue with dexamethasone Acquired mxktipooahnmvp97/04/2025 Assessment & Plan (11/16/2024 2:13 AM EDT): [...] 12:20 PM EDT): - continue with levothyroxine. Qecmdzkjocgyxf05/03/2025 Assessment & Plan (11/12/2024 12:39 PM EDT): [...] well as other thyroid function testing Morbid otuvvfx3908/17/2024 Assessment & Plan (08/19/2024 1:03 PM EDT): [...] daily DVT prophylaxis is VTE protocols per [facility] GI prophy Protonix Monitor labs) Obtain blood cultures Comments IV Vanco and cefepime Consult infectious diseases Early ambulation I discussed the plan of care with the patient and she is in agreement. Idspsmlrpt37/02/2025 Assessment & Plan (08/17/2024 1:27 AM EDT): -Unclear blood cultures - Commence patient on Vanco/cefepime - Monitor patient blood cultures - Also evaluate lab tests and correct abnormalities - Consult infectious disease - Obtain 2D echocardiogram History of laparoscopic ccqrzmeyjrcmtrq20/25/2025hronic, continuous use of arnrvyw4304/11/2024Starvation twjnlolfbwct18/25/2025Intestinal aoehyeoxm57/07/2024 Screening for diabetes mellitus (DM)01/22/2024History of small bowel obstruction 01/21/2024Impaired intestinal rjafovvuxu70/18/0441Xhsst02/25/2024urrent use of steroid gsivtqhgto56/21/2024ommunity acquired pneumonia of left lower lobe of lung08/07/2023Idiopathic /21/2024spiration pneumonia of left lower lobe due to vomit08/04/2023Syncope and trfmbkon20/19/2024Heart blxvoug7306/29/2023 Acute renal failure superimposed on chronic kidney kwczhhx5806/29/2023Hypokalemia 06/29/2023ecreased oral jjxvgh0105/25/20237760Javtpftxaelffv04/19/2024nxiety and tueukaondv98/23/2023Feeding arbyais9612/07/2022Therapeutic drug monitoring 12/07/20226178Xpfvzoizzjk61/12/2023ilious vomiting with gtzklm6010/28/2022Intractable vomiting with gtfnbf7810/25/20228809Nbmyss10/20/2023 Overview (11/09/2024): Takes Pro FE daily. Last Assessment & Plan: Assessment: iron infusions ~1 month ago Acute pain of right knee08/04/2022all stone08/04/2022Internal derangement of right ajfnhwie97/20/2023Mixed incontinence urge and fynyfn9208/04/2022Other specified noninflammatory disorders of momdjg6708/04/2022atellofemoral pain syndrome of right knee08/04/2022Right flank pain08/04/2022Vaginal pain08/04/2022 Rash and nonspecific skin udokexyq31/07/2023History of Isabel-en-Y gastric bypass 06/24/2022ipolar byedvmqv75/07/2023astric jdodue7901/29/2022Iron deficiency idphmd9611/01/2021Ventral hernia without obstruction or nyhdbstz43/27/2022 Overview (12/05/2024): Last Assessment & Plan: Assessment: will have surgery Calculus of bxpjtp7603/10/2021bnormal finding on imaging of liver04/07/2020 Moderate recurrent major ownprmlofo53/18/2020Situational zmolcu5301/03/2020Panic disorder without pmqoffvvgwp80/06/2020Trauma and stressor-related disorder 11/21/2019Duodenogastric reflux of bile11/16/20191349Buqawo33/10/2020Preoperative yoakacuejoe85/10/2020Regurgitation of food09/25/2019Laryngopharyngeal reflux 10/07/2018Obstructive sleep apnea ljovvfky80/23/2019 Overview (12/05/2024): wears mask every night Kydsfvhiafolhc33/20/2019Reactive wqiorizdydyz62/19/2019Chronic fatigue syndrome 09/19/2018Iron yjzhggussu19/05/2019Vitamin D vjvjaooyrc39/05/2019Insomnia 09/15/2018Maltracking of right ghakfwr7906/27/2018Chondromalacia of patella, right 05/30/2018Arthritis of right knee05/30/201839 weeks gestation of 11/23/2016PCOS (polycystic ovarian syndrome)10/02/2013 Overview (11/09/2024): Last Assessment & Plan: Assessment: monitored per PCP Encounters DateTypeDepartmentCare IkjvOfdzktcwnmd83/30/2025 9:18 AM EDTAnesthesia Event [facility] [address] [place] [phone] Sergei Randall MD Arnaut, Daniel, MD 12/14/2024 7:17 AM EDT - 12/14/2024 9:35 AM EDTHospital Encounter [facility] [address] [place] [phone] Braxton Bellamy MD Jackson, Jennifer, CAA Bhatt, Shashi B., MD Common bile duct dilatation; Chronic narcotic use Discharge Disposition: Home or Self Care ()12/14/20247486Wfjull44/24/2025Telephone [facility] [address] [place] [phone] Muna Michael RN 12/06/2024 11:20 AM EDTOffice Visit [facility] [address] [place] [address] Wali Collins MD Spontaneous dissection of coronary artery (Primary Dx); Other fatigue; Precordial pain; Anemia due to acute blood loss12/06/2024Orders Only [facility] [address] [place] [address] Maryuri Downing MA Anemia, unspecified type (Primary Dx)12/05/2024Orders Only [facility] [address] [place] [address] Siri Dotson MD 12/04/20240599Uwcjhd87/17/2025Orders Only [facility] [address] [place] [phone] Muna Michael, DEE Common bile duct dilation (Primary Dx)11/26/2024 7:34 PM EDT - 11/26/2024 9:45 PM EDTEmergency [facility] Emergency [address] [place] [address] Israel Jeong MD Acute UTI (Primary Dx) Discharge Disposition: Home or Self Care ()11/26/20242256Dngekf58/01/2025 7:56 PM EDT - 11/17/2024 2:42 PM EDTHospital Encounter [facility] [address] [place] [phone] Sandeep Casey MD Chest pain (Primary Dx) Discharge Disposition: Home-Health Care Svc ()11/15/20241540Adzlpd25/25/2025 10:47 AM EDT - 11/13/2024 2:34 PM EDTHospital Encounter [facility] [address] [facility] [place] [phone] Urbano Santos MD Chang, Kyu Chul, MD Schwarz, Stephanie, DO Chest pain (Primary Dx); Chronic narcotic use Discharge Disposition: Home-Health Care Svc ()11/09/20249111Ofeymr05/18/2025 8:45 PM EDTAnesthesia Event [facility] Main Operating Room [address] [place] [phone] David Reyes MD 11/02/2024 8:45 PM EDT - 11/02/2024 11:15 PM EDTSurgery [facility] Main Operating Room [address] [facility] [place] [phone] Jose Angel Fox MD EXPLORATION, HEMATOMA Right Groin11/02/2024 5:41 PM EDT - 11/02/2024 6:41 PM EDT Surgery [facility] Heart [facility] [address] [place] [address] Wali Collins MD Coronary uwuwiqdifmv80/17/2025 12:30 PM EDT - 11/01/2024 1:30 PM EDTSurgery [facility] [address] [place] [address] Mitchell Agustin MD Coronary uwnfnuxdvva14/16/2025 1:30 PM EDT - 10/31/2024 2:30 PM EDTSurgery [facility] Heart [facility] [address] [place] [address] Tino Gilmore MD Coronary bxoeuletsit70/15/2025 6:28 PM EDT - 11/07/2024 5:10 PM EDTHospital Encounter [facility] [address] [place] [address] Sandeep Casey MD Spencer, Caleb T, MD Vicente, David, MD Mansur, Sarmed, MD Moukarbel, George, MD Hematoma (Primary Dx); Chest pain; NSTEMI (non-ST elevated myocardial infarction) (CMS/HCC); Spontaneous dissection of coronary artery; Gastroparesis; Gastroesophageal reflux disease without esophagitis Discharge Disposition: Home-Health Care [facility] ([facility])10/30/2024Travelfrom Last 3 Months Family History Medical HistoryRelationNameCommentsNo Known ProblemsFatherNo Known Problems MotherRelationNameStatusCommentsFatherAliveMotherAlive Social History Tobacco UseTypesPacks/DayYears UsedDateSmoking Tobacco: NeverSmokeless Tobacco: Never Tobacco Cessation:Counseling Given: Not Answered Alcohol UseStandard Drinks/WeekCommentsNot Currently0 (1 standard drink = 0.6 oz pure alcohol)[facility] UtilitiesAnswerDate RecordedIn the past 12 months has the [employer], gas, oil, or water [employer] threatened to shut off services in your [...] 11/15/2024CommentsNoSex and Gender InformationValueDate RecordedSex Assigned at XkuzlZavhxc65/03/2025 3:45 PM EDTLegal VvvNiiokr06/30/2022 12:07 AM EDTGender FxkxywurFrmvvu86/03/2025 3:45 PM EDTSexual OrientationHeterosexual or Cuofpayu27/03/2025 3:45 PM EDT Last Filed Vital Signs Vital SignReadingTime TakenCommentsBlood Jowcykhn152/7012/14/2024 10:30 AM EDT Pshbp336112/14/2024 10:30 AM FKODgmwtmcxlwf43.3 ??C (97.3 ??F)12/14/2024 10:30 AM EDTRespiratory Lqpu8273 10:30 AM EDTOxygen Ddclpplyhw770%12/14/2024 10:30 AM EDTInhaled Oxygen Concentration--Qcucme85.4 kg (177 lb 4 oz)12/14/2024 7:36 AM LNCFpcndq447.6 cm (5' 6 )12/14/2024 7:36 AM EDTBody Mass Index28.61 12/14/2024 7:36 AM EDT Plan of Treatment DateTypeDepartmentCare Team (Latest Contact Info)Auclutbzrzy17/17/2025 11:00 AM ESTOffice Visit [facility] [place] [address] [place] [address] Wali Collins MD [address] [place] [address] Health MaintenanceDue DateLast DoneCommentsDiabetes: Retinopathy Screening 1999Depression Hkftxkqst53/17/2002Varicella Vaccines (1 of 2 - 13+ 2-dose series)2002Diabetes: Urine Protein Aephkqxbo03/17/2009Hepatitis B Vaccines (1 of 3 - 19+ 3-dose series)2008Pneumococcal Vaccine: Pediatrics (0 to 5 Years) and At-Risk Patients (6 to 64 Years) (1 of 2 - PCV)2008Zoster Vaccines (1 of 2)2008HPV Vaccines (1 - Risk 3-dose SCDM series)2016 HPV/Aigbgg9604/03/2019Cervical Cancer Ukzgbugfc91/06/2024Pap Smear05/22/2023 05/21/2020OVID-19 Vaccine ( season)501/05/2021, 06/23/2020 Influenza Vaccine (#1)509/, 11/16/2021, 01/01/2021, [...] to complete this topic Procedures Procedure NamePriorityDate/TimeAssociated DiagnosisCommentsEUS (UPPER) W/ EGD Refhcvf9112/14/2024 9:59 AM EDT Common bile duct dilatation VT AN ELECTIVE ENDOTRACHEAL LBVJYXOjfniay88/30/2025 9:25 AM EDT POCT GLUCOSE METER UNSOLICITED HNUIAKNPmsiijr80/30/2025 7:47 AM EDT HEPATIC FUNCTION CIMGUIggbxxo78/30/2025 7:40 AM EDT URINALYSIS MICROSCOPIC WITH REFLEX FOMEILENFWE96/12/2025 8:27 PM EDT SERUM DKHPNMTKKLFILWY17/12/2025 8:27 PM EDT URINALYSIS WITH REFLEX YRPNAQXTSBR13/12/2025 8:27 PM EDT XR CHEST 1 DIHOXMOT20/12/2025 8:17 PM EDT ECG 12-PRHQRFAA59/12/2025 8:13 PM EDT CBC WITH AUTO ZIVIDLURWXFHLXGE91/12/2025 8:05 PM EDT HIGH SENSITIVITY TROPONIN ISTAT1 8:05 PM EDT MXHUTQDOET48/12/2025 8:05 PM EDT COMPREHENSIVE METABOLIC WHCEQWCJF83/12/2025 8:05 PM EDT CBC AND GBDKIPGOGYMIXLUT84/12/2025 8:05 PM EDT HEPATIC FUNCTION PANELAdd-On11/17/2024 5:17 AM EDT MAGNESIUMPending Kxzeygghu66/03/2025 5:17 AM EDT CBCPending Ggighemso88/03/2025 5:17 AM EDT BASIC METABOLIC PANELPending Yvmmqmkqd02/03/2025 5:17 AM EDT MR ABDOMEN WO CONTRAST GZKXGVAH89/02/2025 8:32 PM EDT ECG 12-RRXTUuavorl96/02/2025 9:55 AM EDT HEPATIC FUNCTION PANELSTAT Add-on11/16/2024 5:36 AM EDT HIGH SENSITIVITY TROPONIN IAdd-On11/16/2024 5:36 AM EDT AYZLgrnyao78/02/2025 5:36 AM EDT BASIC METABOLIC NTLSCJgklzys48/02/2025 5:36 AM EDT XR CHEST 1 GMOFLxinqyp90/29/2025 12:51 PM EDT POCT GLUCOSE METER UNSOLICITED MFYOOGSVgirfcc30/29/2025 11:08 AM EDT HOME O2 EVAL (DESATURATION SCREEN)Tczgxck8911/13/2024 10:32 AM EDTHIGH SENSITIVITY TROPONIN IPending Ssvszpwkc39/29/2025 7:03 AM EDT BASIC METABOLIC PANELPending Jcwfsbvwr27/29/2025 7:03 AM EDT CBCPending Nufszczyi43/29/2025 7:03 AM EDT POCT GLUCOSE METER UNSOLICITED KPVZOUUUgojuhg24/29/2025 7:01 AM EDT HIGH SENSITIVITY TROPONIN IPending Kioybcgps57/29/2025 12:17 AM EDT POCT GLUCOSE METER UNSOLICITED UIRWKISNuiobsk70/29/2025 12:16 AM EDT HIGH SENSITIVITY TROPONIN IPending Nbxjofgrd60/28/2025 6:28 PM EDT POCT GLUCOSE METER UNSOLICITED WLNZCAOQkezzxp40/28/2025 6:18 PM EDT ECG 12-QEXTXzafrtj31/28/2025 1:41 PM EDT HIGH SENSITIVITY TROPONIN ISTAT11/12/2024 1:34 PM EDT HIGH SENSITIVITY TROPONIN IPending Bvidnehai60/28/2025 10:56 AM EDT POCT GLUCOSE METER UNSOLICITED WRWVFATQvqcfwj25/28/2025 10:55 AM EDT HIGH SENSITIVITY TROPONIN IPending Urkmctjhm57/28/2025 6:30 AM EDT BASIC METABOLIC PANELPending Boalzuvxp57/28/2025 6:30 AM EDT CBCPending Dvtfwjana11/28/2025 6:30 AM EDT POCT GLUCOSE METER UNSOLICITED OLVAOVNMzbilpc38/28/2025 6:27 AM EDT HIGH SENSITIVITY TROPONIN IPending Fbniokubn72/28/2025 12:00 AM EDT POCT GLUCOSE METER UNSOLICITED BAQWOUAXipurev16/27/2025 11:56 PM EDT CTA CHEST W IV POEEAZINLZYL63/27/2025 8:55 PM EDT ECG 12-RRHCVOGZ91/27/2025 6:15 PM EDT HIGH SENSITIVITY TROPONIN IPending Gornyaewn39/27/2025 6:14 PM EDT POCT GLUCOSE METER UNSOLICITED BWSJXKOSoxlrrs68/27/2025 5:16 PM EDT C-REACTIVE PROTEINPending Mcxjszehb85/27/2025 3:29 PM EDT POCT GLUCOSE METER UNSOLICITED BBMXMHMUzqswxh99/27/2025 12:49 PM EDT SEDIMENTATION RATEAdd-On11/11/2024 6:39 AM EDT BASIC METABOLIC PANELPending Yjcdrkesb61/27/2025 6:39 AM EDT CBCPending Xxqzarszc95/27/2025 6:39 AM EDT POCT GLUCOSE METER UNSOLICITED ZWRUUUIOnaydfk61/27/2025 6:35 AM EDT POCT GLUCOSE METER UNSOLICITED AMUHTGQUuwsfnv30/27/2025 12:55 AM EDT HIGH SENSITIVITY TROPONIN IPending Islwxwgjz85/26/2025 8:50 PM EDT POCT GLUCOSE METER UNSOLICITED GBBLLOKTyrrvgf86/26/2025 6:24 PM EDT ECG 12-MCIADZEE59/26/2025 3:11 PM EDT HIGH SENSITIVITY TROPONIN IPending Fkowlppyr50/26/2025 2:22 PM EDT POCT GLUCOSE METER UNSOLICITED GYYNXIOLlnhiyd49/26/2025 1:06 PM EDT LEXISCAN STRESS MYOCARDIAL PERFUSION OEYJLKXZowxrhy64/26/2025 11:23 AM EDT XR CHEST 1 ETBGTfuozdd16/26/2025 9:01 AM EDT ECG 12-CYVQIfyeutj99/26/2025 8:09 AM EDT HIGH SENSITIVITY TROPONIN ISTAT11/10/2024 7:44 AM EDT POCT GLUCOSE METER UNSOLICITED UEHBRQQEmoxijm53/26/2025 7:39 AM EDT POCT GLUCOSE METER UNSOLICITED JKKCMYNLeljxeg15/25/2025 9:21 PM EDT POCT GLUCOSE METER UNSOLICITED QGWBOHDUkpsmmc06/25/2025 4:12 PM EDT CBC WITH AUTO JXFCVGTEDWFEWkgxjbp64/25/2025 2:09 PM EDT BIEVZMRTJQsbpfri43/25/2025 2:09 PM EDT CBC AND IVICOWLRRQKMPclgkfy08/25/2025 2:09 PM EDT BASIC METABOLIC PAQOXBnvxwmo38/25/2025 2:09 PM EDT HIGH SENSITIVITY TROPONIN QYwuzhid05/25/2025 2:09 PM EDT ECG 12-CJYMJpfhzua96/25/2025 12:39 PM EDT POCT GLUCOSE METER UNSOLICITED GCMDZVCJgflzai84/23/2025 4:00 PM EDT POCT GLUCOSE METER UNSOLICITED FDXNUKKDlgfrvj54/23/2025 11:55 AM EDT ECG 12-RMWDEdwyndy08/23/2025 11:48 AM EDT POCT GLUCOSE METER UNSOLICITED MVVQESOGhuxkmf35/23/2025 7:43 AM EDT DFWVVGN6811/07/2024 6:27 AM EDT HIGH SENSITIVITY TROPONIN ISTAT Add-on11/07/2024 4:50 AM EDT CALCIUM, UJKUOHMGhoeosk80/23/2025 4:50 AM EDT TUKKYQKZXUZvdvvtu35/23/2025 4:50 AM EDT FVLUWYWWNNxdekiz18/23/2025 4:50 AM EDT BASIC METABOLIC AJOOIKhzjdps08/23/2025 4:50 AM EDT POCT GLUCOSE METER UNSOLICITED BAXGSJFXitotbj96/22/2025 10:59 PM EDT POCT GLUCOSE METER UNSOLICITED QCKWMXTFftelym71/22/2025 8:22 PM EDT POCT GLUCOSE METER UNSOLICITED GUQZJCXLkllvqv63/22/2025 5:05 PM EDT CALCIUM, IONIZEDPending Fqfjhnhvz52/22/2025 12:24 PM EDT POCT GLUCOSE METER UNSOLICITED TPWETDUMwiycuy33/22/2025 12:19 PM EDT VASC US LOWER EXTREMITY PSEUDOANEURYSM DUPLEX WVLAWEqdhiln99/22/2025 8:24 AM EDT POCT GLUCOSE METER UNSOLICITED SSWFWZGUacekfx65/22/2025 7:52 AM EDT CBC WITH AUTO DIFFERENTIALPending Ajepmayol90/22/2025 5:50 AM EDT CBC AND HMKBGBDACOUBHokmkqd04/22/2025 5:50 AM EDT PHOSPHORUSPending Uthmyeewt90/22/2025 5:50 AM EDT MAGNESIUMPending Tyaiuqpqe72/22/2025 5:50 AM EDT BASIC METABOLIC PANELPending Ivfildrqr04/22/2025 5:50 AM EDT POCT GLUCOSE METER UNSOLICITED SDDXEBHShcpecx41/21/2025 10:07 PM EDT POCT GLUCOSE METER UNSOLICITED KYHBTYJEbgpzax67/21/2025 4:37 PM EDT POCT GLUCOSE METER UNSOLICITED OHSUNMDKrcphmv28/21/2025 11:36 AM EDT HEMOGLOBIN AND HEMATOCRIT, BLOODPending Mwqxejwss75/21/2025 9:01 AM EDT POCT GLUCOSE METER UNSOLICITED DMYZZETXgpmlps94/21/2025 8:36 AM EDT CBCPending Aibravujc50/21/2025 3:48 AM EDT PHOSPHORUSPending Nuuxjbpdj10/21/2025 3:48 AM EDT MAGNESIUMPending Nxcndawsx36/21/2025 3:48 AM EDT BASIC METABOLIC PANELPending Wnazzsctb45/21/2025 3:48 AM EDT CALCIUM, IONIZEDPending Ozeuaslae08/21/2025 1:00 AM EDT HEMOGLOBIN AND HEMATOCRIT, BLOODPending Xarxrnonw78/21/2025 12:54 AM EDT POCT GLUCOSE METER UNSOLICITED PEJBTRVRhscrry07/20/2025 10:33 PM EDT BASIC METABOLIC PANELSTAT Add-on11/04/2024 8:17 PM EDT HEMOGLOBIN AND HEMATOCRIT, BLOODPending Kitysdfph95/20/2025 8:13 PM EDT POCT GLUCOSE METER UNSOLICITED KEOFWQMWgljbnk40/20/2025 5:12 PM EDT TRANSFUSE RED BLOOD ZXRJVRbarzdm79/20/2025 2:34 PM EDTECG 12-UCSFYZYS97/20/2025 1:59 PM EDT HEMOGLOBIN AND HEMATOCRIT, BLOODPending Woranzcex84/20/2025 1:38 PM EDT BASIC METABOLIC IKLOHBAFO38/20/2025 1:38 PM EDT HIGH SENSITIVITY TROPONIN ISTAT11/04/2024 1:38 PM EDT POCT GLUCOSE METER UNSOLICITED JEWSCUUVwwiuvj17/20/2025 1:06 PM EDT CTA ABDOMEN PELVIS W IV RYKQNWTHScdntjv58/20/2025 12:48 PM EDT POCT GLUCOSE METER UNSOLICITED JXJSWOCRypbhse43/20/2025 9:20 AM EDT POCT GLUCOSE METER UNSOLICITED FQCPETTOtfogqo23/20/2025 5:10 AM EDT CBCPending Alzsksmvx77/20/2025 5:05 AM EDT CALCIUM, IONIZEDPending Ygcdeirkx65/20/2025 5:05 AM EDT PHOSPHORUSPending Lsixluyjg24/20/2025 5:05 AM EDT MAGNESIUMPending Jlqohbcsg25/20/2025 5:05 AM EDT BASIC METABOLIC PANELPending Ojsvticrl67/20/2025 5:05 AM EDT POCT GLUCOSE METER UNSOLICITED RHJQDQMHgtkeah44/20/2025 12:12 AM EDT HEMOGLOBIN AND HEMATOCRIT, BLOODPending Iqlakvghw67/20/2025 12:09 AM EDT POCT GLUCOSE METER UNSOLICITED IIHHGWZSkzutwq73/19/2025 9:52 PM EDT HEMOGLOBIN AND HEMATOCRIT, BLOODPending Lhdwqwfor55/19/2025 6:34 PM EDT POCT GLUCOSE METER UNSOLICITED KUFUUHFDcwcgdd08/19/2025 5:35 PM EDT CBCPending Nbabjovdz49/19/2025 1:23 PM EDT POCT GLUCOSE METER UNSOLICITED LERBXNWIqdqcdy52/19/2025 11:35 AM EDT POCT GLUCOSE METER UNSOLICITED ZJORYLTSormbhd00/19/2025 7:46 AM EDT CBCPending Wdynufzej12/19/2025 4:46 AM EDT CALCIUM, IONIZEDPending Kvfkzkeut53/19/2025 4:46 AM EDT PHOSPHORUSPending Hdbfeqhir38/19/2025 4:46 AM EDT MAGNESIUMPending Yvbalralz88/19/2025 4:46 AM EDT BASIC METABOLIC PANELPending Cynypeqvo44/19/2025 4:46 AM EDT INTEM ZQmfdfjp66/19/2025 1:58 AM EDT HEPTEM IGruevpg20/19/2025 1:58 AM EDT EXTEM PUlnzfss50/19/2025 1:58 AM EDT FIBTEM WHucvvyf25/19/2025 1:58 AM EDT CRNPSWY2011/03/2024 12:07 AM EDT YHHFYVRWPJGGHJ68/19/2025 12:07 AM EDT FYMOACEXJTTOG91/19/2025 12:07 AM EDT BASIC METABOLIC OQXLEXJOT85/19/2025 12:07 AM EDT FLHSJCKTMEBDQG11/19/2025 12:07 AM EDT PROTIME-HGXEGDM7211/03/2024 12:07 AM EDT POCT GLUCOSE METER UNSOLICITED GLMHACIAuxyjef80/18/2025 10:48 PM EDT TRANSFUSE RED BLOOD NZCGNZohlghv05/18/2025 9:30 PM EDTTRANSFUSE RED BLOOD CELLS Lqcdzcr4711/02/2024 9:10 PM EDTPR AN ELECTIVE ENDOTRACHEAL BXQITQGvqqdme20/18/2025 8:56 PM EDT REPAIR, FCHMUWPCUGKSQF55/18/2025 8:44 PM EDT Hematoma Right Groin EXPLORATION, EUYLWEMU27/18/2025 8:44 PM EDT Hematoma Right Groin POCT GLUCOSE METER UNSOLICITED HFSOGRKUxukgwq37/18/2025 8:30 PM EDT PREPARE ASKErltclj66/18/2025 8:05 PM EDT PREPARE NNLVqdyhrq97/18/2025 8:05 PM EDT TYPE AND SCREENPending Ojuejwgsq59/18/2025 8:02 PM EDT CBCPending Azeosfciw29/18/2025 8:02 PM EDT RED NTWNhwzljh17/18/2025 8:00 PM EDT EXTRA JBDADWpxcuca66/18/2025 8:00 PM EDT ACTIVATED CLOTTING BWXHMxqfnww94/18/2025 4:43 PM EDT POCT ACTIVATED CLOTTING PZVRPernoxv53/18/2025 4:40 PM EDT POCT ACTIVATED CLOTTING KETXGslmgdy17/18/2025 4:19 PM EDT ACTIVATED CLOTTING IQBOProffdv38/18/2025 4:13 PM EDT ACTIVATED CLOTTING ZPNDOfoerix78/18/2025 2:56 PM EDT INSTANT WAVE FREE RATIO (IFR)Kfkvwyj3411/02/2024 2:53 PM EDT Spontaneous dissection of coronary artery ULTRASOUND - QTYTUSJSFdkuhhr18/18/2025 2:53 PM EDT Spontaneous dissection of coronary artery CORONARY FPLKYOODYCQTvqiygp69/18/2025 2:53 PM EDT Spontaneous dissection of coronary artery ACTIVATED CLOTTING AOVJIbhpcte57/18/2025 2:24 PM EDT ECG 12-ZOGKTMLV03/18/2025 1:18 PM EDT HIGH SENSITIVITY TROPONIN ISTAT11/02/2024 1:01 PM EDT POCT GLUCOSE METER UNSOLICITED WVZVLYOQnxnuyr95/18/2025 11:07 AM EDT POCT GLUCOSE METER UNSOLICITED KHRXZZXIpcsjwp48/18/2025 7:31 AM EDT LIGHT GREEN ILITdjjxtg33/18/2025 6:15 AM EDT EXTRA NYRYVFkhopyw09/18/2025 6:15 AM EDT CBCPending Ponmksxml61/18/2025 6:15 AM EDT POCT GLUCOSE METER UNSOLICITED CMPDOECZxpdevl27/17/2025 8:42 PM EDT POCT GLUCOSE METER UNSOLICITED TJFUAPYQxzxbea39/17/2025 6:04 PM EDT ACTIVATED CLOTTING AYYEIpdtxjt87/17/2025 4:36 PM EDT POCT ACTIVATED CLOTTING ASYPQvmcpss11/17/2025 4:33 PM EDT ULTRASOUND - OBDFGZHCIplmobj33/17/2025 1:30 PM EDT NSTEMI (non-ST elevated myocardial infarction) ([facility]) CORONARY UTUCNRPIGFTFihtkxz54/17/2025 1:30 PM EDT NSTEMI (non-ST elevated myocardial infarction) (CMS/HCC) ACTIVATED CLOTTING WYKCJtsbomp96/17/2025 1:27 PM EDT ACTIVATED CLOTTING KMBEGrktnoy29/17/2025 1:14 PM EDT ECG 12-USQMVahgtll66/17/2025 12:09 PM EDT POCT GLUCOSE METER UNSOLICITED OXAQADIVsbyxit39/17/2025 11:30 AM EDT BASIC METABOLIC PANELPending Ckvawayol31/17/2025 10:10 AM EDT BHXFVOA8911/01/2024 10:10 AM EDT POCT GLUCOSE METER UNSOLICITED PTCPSICUmqhkly77/17/2025 7:43 AM EDT HIGH SENSITIVITY TROPONIN HUdhfn3611/01/2024 6:42 AM EDT ANTI-FACTOR XAPending Mznzalvlo96/17/2025 6:04 AM EDT POCT GLUCOSE METER UNSOLICITED XSJWJSJFkajkfl14/17/2025 6:02 AM EDT TOXICOLOGY PANEL WVUURXwaxkfc55/17/2025 2:12 AM EDT POCT GLUCOSE METER UNSOLICITED OFPHHYNJirrjqn59/16/2025 8:20 PM EDT LEFT HEART FSKHAtiwtst94/16/2025 7:34 PM EDT NSTEMI (non-ST elevated myocardial infarction) (CMS/HCC) CORONARY PKBCQPPJBAQLhylohv44/16/2025 7:34 PM EDT NSTEMI (non-ST elevated myocardial infarction) (CMS/HCC) POCT GLUCOSE METER UNSOLICITED QLAVWLURhxpjvv99/16/2025 11:55 AM EDT LIMITED ECHO (TTE) W/ COLOR FLOW AND IMAGING OGMZQFunnkvq68/16/2025 11:40 AM EDT ECG 12-JPWYSwfcctt51/16/2025 8:47 AM EDT ECG 12-VVFDTewtlcf72/16/2025 8:25 AM EDT POCT GLUCOSE METER UNSOLICITED HTEKHSVYcayxym18/16/2025 7:22 AM EDT HEMOGLOBIN I4POvn-Fw76/16/2025 6:27 AM EDT LIPID PANELAdd-On10/31/2024 6:27 AM EDT MAGNESIUMAdd-On10/31/2024 6:27 AM EDT ANTI-FACTOR VZWwuimmk48/16/2025 6:27 AM EDT STUKhjnldl82/16/2025 6:27 AM EDT BASIC METABOLIC DEBXILyxodua91/16/2025 6:27 AM EDT HIGH SENSITIVITY TROPONIN ZBmvaa2710/31/2024 6:27 AM EDT ANTI-FACTOR HVSxngqut41/16/2025 1:38 AM EDT HIGH SENSITIVITY TROPONIN VOymdf5010/31/2024 1:38 AM EDT POCT GLUCOSE METER UNSOLICITED XKVFGDIXauprsq92/15/2025 9:12 PM EDT ECG 12-DYWVIQZB93/15/2025 8:00 PM EDT ANTI-FACTOR XASTAT Add-on10/30/2024 7:11 PM EDT PVMRRMZG79/15/2025 7:11 PM EDT TSH3 REFLEX TO TI3VUXU5510/30/2024 7:11 PM EDT CBC WITH AUTO UIVOAOKRYFMXQQOO77/15/2025 7:11 PM EDT B-TYPE NATRIURETIC PDHZUGNDVBK37/15/2025 7:11 PM EDT CBC AND UQITZNEQYFVPDSII64/15/2025 7:11 PM EDT PROTIME-CTBVRVI9310/30/2024 7:11 PM EDT BAZERGYPHTXXMG82/15/2025 7:11 PM EDT HIGH SENSITIVITY TROPONIN ISTAT10/30/2024 7:11 PM EDT GLPZDHPEMVTDW24/15/2025 7:11 PM EDT COMPREHENSIVE METABOLIC TEQHDHPEV87/15/2025 7:11 PM EDT from Last 3 Months Results * EUS (Upper) w/ EGD Intervention(s): [...] balloon dilation up to 20 mm at [facility] that was performed in September 2024. ??The [...] findings and interventions are described below. ??The [employer] video radial echoendoscope was then introduced through [...] Teresa Patel CNPENDOSCOPY PROCEDURE ORDERABLESFinal Result * VT AN ELECTIVE ENDOTRACHEAL AIRWAY (12/14/2024 9:25 AM EDT) Olga Yuen CAA - 12/14/2024 9:25 AM EDT [place] Restrepo 12/14/2024 9:33 AM Airway Date/Time: 12/14/2024 9:25 AM Reason: elective Airway not difficult General Information and Staff Patient location during procedure: [place] Anesthesiologist: Sergei Randall MD Resident/TEAMCENTER SOLUTION ARCHITECT/CAA: [place] Restrepo Performed: resident/TEAMCENTER SOLUTION ARCHITECT/[place] Patient Condition Indications for airway management: anesthesia [...] Hard bite block placed Authorizing ProviderResult TypeResult Rupal Randall MDANESTHESIA ORDERABLESFinal Result * POCT glucose meter (12/14/2024 7:47 AM EDT) Only the most recent of52 resultswithin the time period is included. ComponentValueRef RangeTest MethodAnalysis TimePerformed AtPathologist Signature Glucose MZY9599 - 105 mg/dL12/14/2024 7:57 AM [facility] Comment:pdlcueg4Ubrfqvno (Source)Anatomical Location / LateralityCollection Method / VolumeCollection TimeReceived TimeBloodCapillary blood specimen / Vkgnfga6412/14/2024 7:47 AM EDT1 7:57 AM EDT Narrative [facility] - 12/14/2024 7:57 AM EDT Waived Testing in the ED is performed under the ED CLIA certificate #[id number]. Authorizing ProviderResult TypeResult Aiden ROBLERO BLOOD ORDERABLES Final ResultPerforming OrganizationAddressCity/State/ZIP CodePhone Number [facility] ([facility]) [address] [place], [place] [id number] * Hepatic function panel (12/14/2024 7:40 AM EDT) Only the most recent of3 resultswithin the time period is included. ComponentValueRef RangeTest MethodAnalysis TimePerformed AtPathologist Signature Total Bilirubin0.30.3 - 1.0 mg/dL12/14/2024 8:26 AM [facility] ([facility])Bilirubin, Direct0.10 - 0.2 mg/dL12/14/2024 8:26 AM [facility] ([facility])Alkaline Lafvpdnoaoz1683 - 104 U/L1 8:26 AM [facility] ([facility])GIZ3946 - 39 U/L1 8:26 AM [facility])ALT (SGPT)147 - 52 U/L1 8:26 AM [facility] ([facility])Total Protein 6.26.0 - 8.3 g/dL12/14/2024 8:26 AM [facility] ([facility])Albumin3.83.5 - 5.7 g/dL12/14/2024 8:26 AM [facility] ([facility])Specimen (Source) Anatomical Location / LateralityCollection Method / VolumeCollection Time Received TimeBloodVenous blood specimen / UnknownExisting Catheter / Unknown 12/14/2024 7:40 AM EDT1 7:49 AM EDT Narrative Authorizing ProviderResult TypeResult StatusKarmen ROBLERO BLOOD ORDERABLESFinal ResultPerforming OrganizationAddressCity/State/ZIP CodePhone Number [facility] ([facility]) [address] [place] [address] * Urinalysis microscopic with reflex culture (11/26/2024 8:27 PM EDT)Component ValueRef RangeTest MethodAnalysis TimePerformed AtPathologist SignatureRBC, Urine0-2None Seen, 0-2 /HPF11/26/2024 8:52 PM [facility] ([facility]) WBC, Urine0-2None Seen, 0-2 /HPF11/26/2024 8:52 PM [facility] ([facility])Squamous Epithelial, UrineNone SeenNone Seen, Occasional, Few /LPF 11/26/2024 8:52 PM [facility] ([facility])Mucus, UrineOccasionalNone Seen, Occasional, Few /LP11/26/2024 8:52 PM [facility] ([facility]) Specimen (Source)Anatomical Location / LateralityCollection Method / Volume Collection TimeReceived TimeUrineUrine specimen obtained by clean catch procedure / UnknownNon-blood Collection / Gibfmxd8711/26/2024 8:27 PM EDT 11/26/2024 8:33 PM EDT Narrative Authorizing ProviderResult TypeResult StatusDustin Jean-Paul ANNIKA URINE ORDERABLES Final ResultPerforming OrganizationAddressCity/State/ZIP CodePhone Number [facility] ([facility]) [address] [place] [address] * (ABNORMAL) Urinalysis with reflex culture (11/26/2024 8:27 PM EDT)Component ValueRef RangeTest MethodAnalysis TimePerformed AtPathologist SignatureColor, UrineDark-Yellow(A)Colorless, Yellow, Light-Stfing8611/26/2024 8:52 PM [facility] ([facility])Clarity, GnlyeHitlmTlhlb18/12/2025 8:52 PM [facility] ([facility])pH, Urine7.05.0 - 8.0 pH11/26/2024 8:52 PM [facility] ([facility])Leukocytes, UrineTrace(A)Yrzoaaia01/12/2025 8:52 PM EDT [facility] ([facility])Nitrite, UrinePositive(A)Yuphlunj71/12/2025 8:52 PM [facility] ([facility])Protein, UrineNegativeNegative mg/dL11/26/2024 8:52 PM [facility] ([facility])Glucose, UrineNormalNormal mg/dL 11/26/2024 8:52 PM [facility] ([facility])Bilirubin, UrineSmall(A) Vpqxmkfd32/12/2025 8:52 PM [facility] ([facility])Specific [place], Urine1.0181.010 - 1.5569711/26/2024 8:52 PM [facility] ([facility]) Ketones, UrineNegativeNegative mg/dL11/26/2024 8:52 PM [facility] ([facility])Blood, BfkjbGxtyikzyNakwydqk14/12/2025 8:52 PM [facility] ([facility])Urobilinogen, Urine4.0(A)Normal mg/dL11/26/2024 8:52 PM [facility] ([facility])Specimen (Source)Anatomical Location / Laterality Collection Method / VolumeCollection TimeReceived TimeUrineUrine specimen obtained by clean catch procedure / UnknownNon-blood Collection / Unknown 11/26/2024 8:27 PM EDT1 8:33 PM EDT Narrative Authorizing ProviderResult TypeResult StatusDustin Jean-Paul ROBLERO URINE ORDERABLES Final ResultPerforming OrganizationAddressCity/State/ZIP CodePhone Number [facility] ([facility]) [address] [place] [address] * Serum Qualitative (11/26/2024 8:27 PM EDT)ComponentValueRef Range Test MethodAnalysis TimePerformed AtPathologist SignaturehCG, SerumNegative 11/26/2024 8:51 PM [facility] ([facility])Specimen (Source)Anatomical Location / LateralityCollection Method / VolumeCollection TimeReceived Time BloodVenous blood specimen / UnknownExisting Catheter / Eexsdhh3711/26/2024 8:27 PM EDT1 8:33 PM EDT Narrative Authorizing ProviderResult TypeResult StatusDustin Jean-Paul ROBLERO BLOOD ORDERABLES Final ResultPerforming OrganizationAddressCity/State/ZIP CodePhone Number [facility] ([facility]) [address] [place] [address] * XR chest 1 view (11/26/2024 8:17 [...] ComponentValueRef RangeTest MethodAnalysis TimePerformed AtPathologist Signature Ventricular Avjn66DYIPD MUSEAtrial Wnam24NAALG MUSEPR Uqjsgpex105myKC MUSEQRS RWSDXHLN50pjLJ MUSEQT Lkluguhz846uaJO MUSEQTC CALCULATION(BAZETT)470msGE MUSEP Dptg32jzpgkwvOP MUSER-Jpmg13aunkcioVA MUSET Wave Uazo66vwlremwOA MUSESpecimen (Source)Anatomical Location / LateralityCollection Method / [...] 8:15:28 PM Authorizing ProviderResult TypeResult StatusDustin Jean-Paulladi PHILLIP ORDERABLESFinal ResultPerforming OrganizationAddressCity/State/ZIP CodePhone Number [facility] * HS Troponin I (11/26/2024 8:05 PM EDT) Only the most recent of21 resultswithin the time period is included. ComponentValueRef RangeTest MethodAnalysis TimePerformed AtPathologist Signature High Sensitivity Troponin I<2<15 ng/L1 8:42 PM [facility] ([facility])Specimen (Source)Anatomical Location / LateralityCollection Method / VolumeCollection TimeReceived TimeBloodVenous blood specimen / UnknownExisting Catheter / Ljgscxa3911/26/2024 8:05 PM EDT1 8:13 PM EDT Narrative Authorizing ProviderResult TypeResult StatusDustin Jean-Paul ANNIKA BLOOD ORDERABLES Final ResultPerforming OrganizationAddressCity/State/ZIP CodePhone Number [facility] [address] [place] [address] * (ABNORMAL) CBC auto differential (11/26/2024 8:05 PM EDT) Only the most recent of4 resultswithin the time period is included. ComponentValueRef RangeTest MethodAnalysis TimePerformed AtPathologist Signature Auto WBC5.234.00 - 10.60 10*3/uL11/26/2024 8:18 PM [facility] ([facility]) RBC3.37(L)3.80 - 5.00 10*6/uL11/26/2024 8:18 PM [facility] ([facility]) Hemoglobin9.9(L)12.0 - 15.0 g/dL11/26/2024 8:18 PM [facility] ([facility]) Jlotcdapoi07.9(L)36.0 - 45.0 %11/26/2024 8:18 PM [facility] ([facility]) MCV88.782.0 - 98.0 fL11/26/2024 8:18 [facility] ([facility])MCH29.427.0 - 33.0 pg11/26/2024 8:18 PM [facility] ([facility])MCHC33.132.0 - 35.0 g/dL11/26/2024 8:18 PM [facility] ([facility])RDW14.011.5 - 15.0 % 11/26/2024 8:18 PM [facility] ([facility])Neutrophils %44.540.0 - 72.0 % 11/26/2024 8:18 [facility] ([facility])Lymphocytes %40.520.0 - 45.0 % 11/26/2024 8:18 PM [facility] ([facility])Monocytes %10.95.0 - 12.0 % 11/26/2024 8:18 PM [facility] ([facility])Eosinophils %3.10.0 - 6.0 % 11/26/2024 8:18 PM [facility] ([facility])Basophils %0.80.0 - 1.0 % 11/26/2024 8:18 PM [facility] ([facility])Neutrophils Absolute2.331.60 - 7.60 10*3/uL11/26/2024 8:18 PM [facility] ([facility])Lymphocytes Absolute 2.121.20 - 4.00 10*3/uL11/26/2024 8:18 PM [facility] ([facility])Monocytes Absolute0.570.10 - 1.00 10*3/uL11/26/2024 8:18 PM [facility] ([facility]) Eosinophils Absolute0.160.00 - 0.50 10*3/uL11/26/2024 8:18 PM [facility] ([facility])Basophils Absolute0.040.00 - 0.20 10*3/uL11/26/2024 8:18 PM [facility] ([facility])Chnrchssm182408 - 400 10*3/uL11/26/2024 8:18 PM [facility] ([facility])nRBC %0.00 %11/26/2024 8:18 PM [facility] ([facility])Immature Granulocytes %0.20.0 - 1.0 %11/26/2024 8:18 PM [facility] ([facility])Immature Granulocytes Absolute0.010.00 - 0.20 10*3/uL11/26/2024 8:18 PM [facility] ([facility])Specimen (Source)Anatomical Location / LateralityCollection Method / VolumeCollection TimeReceived TimeBloodVenous blood specimen / UnknownExisting Catheter / Qkjyiah3811/26/2024 8:05 PM EDT 11/26/2024 8:13 PM EDT Narrative Authorizing ProviderResult TypeResult StatusDustin Jean-Paul ANNIKA BLOOD ORDERABLES Final ResultPerforming OrganizationAddressCity/State/ZIP CodePhone Number [facility] ([facility]) [address] [place] [address] * Lipase (11/26/2024 8:05 PM EDT)ComponentValueRef RangeTest MethodAnalysis Time Performed AtPathologist TomsdkpqbXiyyhc5352 - 82 U/L1 8:36 PM [facility] ([facility])Specimen (Source)Anatomical Location / Laterality Collection Method / VolumeCollection TimeReceived TimeBloodVenous blood specimen / UnknownExisting Catheter / Eieaioa7911/26/2024 8:05 PM EDT1 8:13 PM EDT Narrative Authorizing ProviderResult TypeResult StatusDustin Jean-Paul ANNIKA BLOOD ORDERABLES Final ResultPerforming OrganizationAddressCity/State/ZIP CodePhone Number [facility] ([facility]) [address] [place] [address] * (ABNORMAL) Comprehensive metabolic panel (11/26/2024 8:05 PM EDT) Only the most recent of2 resultswithin the time period is included. ComponentValueRef RangeTest MethodAnalysis TimePerformed AtPathologist Signature Edjuaa676815 - 145 mmol/L1 8:36 PM [facility] ([facility]) Potassium3.73.5 - 5.1 mmol/L1 8:36 PM [facility] ([facility]) Xhsigmic628(H)98 - 107 mmol/L1 8:36 PM [facility] ([facility])CO2 2221 - 31 mmol/L1 8:36 PM [facility] ([facility])Anion Gap97 - 20 mmol/L1 8:36 PM [facility] ([facility])BUN97 - 25 mg/dL11/26/2024 8:36 PM [facility] ([facility])Creatinine0.59(L)0.60 - 1.20 mg/dL 11/26/2024 8:36 PM [facility] ([facility])BUN/Creatinine Ratio15.3 11/26/2024 8:36 PM [facility] ([facility])Ucrdbqm7005 - 100 mg/dL 11/26/2024 8:36 PM [facility] ([facility])Calcium7.4(L)8.6 - 10.3 mg/dL 11/26/2024 8:36 PM [facility] ([facility])CQM0989 - 39 U/L1 8:36 PM [facility] ([facility])ALT (SGPT)127 - 52 U/L1 8:36 PM [facility] ([facility])Alkaline Oieftxcuffc4878 - 104 U/L1 8:36 PM EDT [facility] ([facility])Total Protein5.6(L)6.0 - 8.3 g/dL11/26/2024 8:[facility])Albumin3.63.5 - 5.7 g/dL11/26/2024 8:36 PM [facility] ([facility])Total Bilirubin0.2(L)0.3 - 1.0 mg/dL11/26/2024 8:36 PM EDT [facility] ([facility])qXAW026.5>60.0 mL/min/1.73m* 8:36 PM EDT [facility] ([facility])Comment:[facility]???s estimated glomerular filtration rate (eGFR) will [...] Final ResultPerforming OrganizationAddressCity/State/ZIP CodePhone Number [facility] ([facility]) [address] [place] [address] * (ABNORMAL) CBC (11/17/2024 5:17 AM EDT) Only the most recent of15 resultswithin the time period is included. ComponentValueRef RangeTest MethodAnalysis TimePerformed AtPathologist Signature Auto WBC2.92(L)4.00 - 10.60 10*3/uL11/17/2024 5:40 AM [facility])RBC2.88(L)3.80 - 5.00 10*6/uL1004/2024 5:40 AM [facility] ([facility])Hemoglobin8.5(L)12.0 - 15.0 g/dL11/17/2024 5:40 AM [facility])Ttghjhclwo22.9(L)36.0 - 45.0 %11/17/2024 5:40 AM [facility])MCV89.982.0 - 98.0 fL11/17/2024 5:40 AM [facility])MCH 29.527.0 - 33.0 pg11/17/2024 5:40 AM [facility] ([facility])MCHC32.832.0 - 35.0 g/dL11/17/2024 5:40 AM [facility] ([facility])RDW14.611.5 - 15.0 % 11/17/2024 5:40 AM [facility])[id number] - 400 10*3/uL 11/17/2024 5:40 AM [facility])Specimen (Source)Anatomical Location / LateralityCollection Method / VolumeCollection TimeReceived TimeBlood Venous blood specimen / UnknownExisting Catheter / Igcqsrq8211/17/2024 5:17 AM EDT 11/17/2024 5:25 AM EDT Narrative Authorizing ProviderResult TypeResult StatusOmar Carmela ROBLERO BLOOD ORDERABLES Final ResultPerforming OrganizationAddressCity/State/ZIP CodePhone Number [facility] ([facility]) [address] [place] [address] * Magnesium (11/17/2024 5:17 AM EDT) Only the most recent of10 resultswithin the time period is included. ComponentValueRef RangeTest MethodAnalysis TimePerformed AtPathologist Signature Magnesium1.91.9 - 2.7 mg/dL11/17/2024 7:00 AM [facility]) Specimen (Source)Anatomical Location / LateralityCollection Method / Volume Collection TimeReceived TimeBloodVenous blood specimen / UnknownExisting Catheter / Fqnzang0811/17/2024 5:17 AM EDT1 5:24 AM EDT Narrative Authorizing ProviderResult TypeResult StatusOmar Carmela ROBLERO BLOOD ORDERABLES Final ResultPerforming OrganizationAddressCity/State/ZIP CodePhone Number [facility] ([facility]) [address] [place] [address] * (ABNORMAL) Basic metabolic panel (11/17/2024 5:17 AM EDT) Only the most recent of16 resultswithin the time period is included. ComponentValueRef RangeTest MethodAnalysis TimePerformed AtPathologist Signature [id number] - 145 mmol/L1 7:00 AM [facility]) Potassium3.63.5 - 5.1 mmol/L1 7:00 AM [facility]) Pgmlmkja751(H)98 - 107 mmol/L1 7:00 AM [facility] ([facility])CO2 2521 - 31 mmol/L1 7:00 AM [facility] ([facility])GMK554 - 25 mg/dL11/17/2024 7:00 AM [facility] ([facility])Creatinine0.720.60 - 1.20 mg/dL11/17/2024 7:00 AM [facility] ([facility])Aqtokpk2063 - 100 mg/dL 11/17/2024 7:00 AM [facility] ([facility])Calcium8.0(L)8.6 - 10.3 mg/dL 11/17/2024 7:00 AM [facility] ([facility])Anion Udw252 - 20 mmol/L 11/17/2024 7:00 AM [facility] ([facility])nQLP569.8>60.0 mL/min/1.73m*2 11/17/2024 7:00 AM [facility] ([facility])Comment:[facility]???s estimated glomerular filtration rate (eGFR) will [...] group of individuals. BUN/Creatinine Ratio13.91 7:00 AM EDT[facility])Specimen (Source)Anatomical Location / LateralityCollection Method / VolumeCollection TimeReceived TimeBloodVenous blood specimen / UnknownExisting Catheter / Unknown 11/17/2024 5:17 AM EDT1 5:24 AM EDT Narrative Authorizing ProviderResult TypeResult StatusOmar Carmela ROBLERO BLOOD ORDERABLES Final ResultPerforming OrganizationAddressCity/State/ZIP CodePhone Number [facility] ([place]) [address] [place] [address] * MR abdomen wo contrast MRCP (11/16/2024 [...] Simons MD. Authorizing ProviderResult TypeResult StatusOmar Carmela CALVILLO MRI PROCEDURES Final Result * CTA Chest W IV Contrast (11/11/2024 [...] PM EDT)ComponentValueRef Range Test MethodAnalysis TimePerformed AtPathologist RpnxzpipwMXV39.4(H)<=5.0 mg/L 11/13/2024 10:24 AM [facility] ([facility])Comment:Testing performed using a new methodology, turbidimetry. Normal ranges have been updated. Old normal range was <8 mg/L.Specimen (Source)Anatomical Location / Laterality Collection Method / VolumeCollection TimeReceived TimeBloodVenous blood specimen / UnknownExisting Catheter / Tzmgxmd5411/11/2024 3:29 PM EDT11/11/2024 3:42 PM EDT Narrative Authorizing ProviderResult TypeResult StatusJonelle ROBLERO BLOOD ORDERABLESFinal ResultPerforming OrganizationAddressCity/State/ZIP CodePhone Number [facility]) [address] [place] [address] * (ABNORMAL) Sedimentation rate (11/11/2024 6:39 AM EDT)ComponentValueRef Range Test MethodAnalysis TimePerformed AtPathologist SignatureSed Rate20(H)<20 mm/hr11/11/2024 12:20 PM [facility] ([facility])Specimen (Source) Anatomical Location / LateralityCollection Method / VolumeCollection Time Received TimeBloodVenous blood specimen / UnknownExisting Catheter / Unknown 11/11/2024 6:39 AM EDT11/11/2024 6:43 AM EDT Narrative Authorizing ProviderResult TypeResult StatusJonelle ROBLERO BLOOD ORDERABLESFinal ResultPerforming OrganizationAddressCity/State/ZIP CodePhone Number [facility]) [address] [place] [address] * LEXISCAN STRESS MYOCARDIAL PERFUSION IMAGING (11/10/2024 11:23 AM EDT) Anatomical RegionLateralityModalityOtherSpecimen (Source)Anatomical Location / LateralityCollection Method / VolumeCollection TimeReceived Time11/10/2024 11:14 AM EDT Addenda Addendum by Mitul Moya MD on 11/10/2024 4:35 PM EDT 1 1 [facility] Heart Station [address] [place] [address] [phone] (fax) Lexiscan Stress Myocardial Perfusion Imaging- [facility] Name: JUAN GARCIA Study Date: 11/10/2024 11:14 AM B/P: / HR: Date of : 1990 Location: [facility] Height: 65 in. Age: 34 [...] Lexiscan Exercise Time: 03:02 Device: Treadmill HR [place] Used: 21.00 % HR Recovery: 2 bpm Frequent VE: 1 VE/min Resolution: Persisted Max HR: 98 bpm Target HR: 157 bpm Achieved: No Resting HR: 68 bpm Max Predicted HR: 185 bpm Achv. of Max Predicted: 52 % BP Max: 105/71 BP at Rest: 105/71 Max RPP: 67996 mmHg*bpm Max ST Lead: III Max ST Phase: Infusion Stage No. in Phase: [address] Stage: INFUS2:[address] Amplitude: -0.[address] [place]: -0.670 mV/s Max ST Time in Phase: [...] 1.00 mets 67 bpm 105/71 0.250 mm [id number] 00:30 1.00 mets 90 bpm 102/70 0.400 [...] 4 - Aneurysmal Procedure Staff Reading Group: [facility] Referring Physician: BRITT ALAS Stress Director Hematology: [place] ??Rat Poisoner: Lauren Sanchez ??Ordering Physician: BACILIO PEÑA ??Advanced Practitioner: CRISTINA Gibson ??Nurse: Evelyne Abrams ?? Narrative 11/10/2024 4:35 PM EDT 1 1 [facility] Heart Station [address] [place] [address] [phone] (fax) Lexiscan Stress Myocardial Perfusion Imaging- [facility] Name: JUAN GARCIA Study Date: 11/10/2024 11:14 AM B/P: / HR: Date of : 1990 Location: [facility] Height: 65 in. Age: 34 [...] Lexiscan Exercise Time: 03:02 Device: Treadmill HR [place] Used: 21.00 % HR Recovery: 2 bpm Frequent VE: 1 VE/min Resolution: Persisted Max HR: 98 bpm Target HR: 157 bpm ?? Achieved: No Resting HR: 68 bpm Max Predicted HR: 185 bpm Achv. of Max Predicted: 52 % BP Max: 105/71 BP at Rest: 105/71 Max RPP: 49250 mmHg*bpm Max ST Lead: III Max ST Phase: Infusion Stage No. in Phase: [address] Stage: INFUS2:[address] Amplitude: -0.[address] [place]: -0.670 mV/s Max ST Time in Phase: [...] 1.00 mets 67 bpm 105/71 0.250 mm [id number] 00:30 1.00 mets 90 bpm 102/70 0.400 [...] 4 - Aneurysmal Procedure Staff Reading Group: [facility] Referring Physician: BRITT ALAS ??Stress Director Hematology: [place] ??Rat Poisoner: Lauren Sanchez Ordering Physician: BACILIO PEÑA ??Advanced Practitioner: CRISTINA Gibson ??Nurse: Evelyne Abrams ?? Resting Perfusion Procedure Note Mitul Moya MD - 11/10/2024 1 1 [facility] Heart Station [address] [place] [address] [phone] (fax) Lexiscan Stress Myocardial Perfusion Imaging- [facility] Name: JUAN GARCIA Study Date: 11/10/2024 11:14 AM B/P: / HR: Date of : 1990 Location: [facility] Height: 65 in. Age: 34 [...] Lexiscan Exercise Time: 03:02 Device: Treadmill HR [place] Used: 21.00 % HR Recovery: 2 bpm Frequent VE: 1 VE/min Resolution: Persisted Max HR: 98 bpm Target HR: 157 bpm Achieved: No Resting HR: 68 bpm Max Predicted HR: 185 bpm Achv. of Max Predicted: 52 % BP Max: 105/71 BP at Rest: 105/71 Max RPP: 97506 mmHg*bpm Max ST Lead: III Max ST Phase: Infusion Stage No. in Phase: [address] Stage: INFUS2:[address] Amplitude: -0.[address] [place]: -0.670 mV/s Max ST Time in Phase: [...] 1.00 mets 67 bpm 105/71 0.250 mm [id number] 00:30 1.00 mets 90 bpm 102/70 0.400 [...] 4 - Aneurysmal Procedure Staff Reading Group: [facility] Referring Physician: BRITT ALAS Stress Director Hematology: [place] Rat Poisoner: Lauren Sanchez Ordering Physician: BACILIO PEÑA Advanced Practitioner: CRISTINA Gibson Nurse: Evelyne Abrams Resting Perfusion Authorizing ProviderResult TypeResult StatusAbhisliss Peña MDC STRESS PROCEDURES Edited Result - Final * Phosphorus (11/07/2024 4:50 AM EDT) Only the most recent of7 resultswithin the time period is included. ComponentValueRef RangeTest MethodAnalysis TimePerformed AtPathologist Signature Phosphorus4.72.5 - 5.0 mg/dL11/07/2024 5:52 AM EDT[facility] ([facility]) Specimen (Source)Anatomical Location / LateralityCollection Method / Volume Collection TimeReceived TimeBloodVenous blood specimen / UnknownExisting Catheter / Qubltdp8111/07/2024 4:50 AM EDT11/07/2024 5:24 AM EDT Narrative Authorizing ProviderResult TypeResult StatusRosa Willoughby PA-CLAB BLOOD ORDERABLESFinal ResultPerforming OrganizationAddressCity/State/ZIP CodePhone Number [facility] ([facility]) [address] [place] [address] * Calcium, ionized (11/07/2024 4:50 AM EDT) Only the most recent of5 resultswithin the time period is included. ComponentValueRef RangeTest MethodAnalysis TimePerformed AtPathologist Signature Calcium, Ion1.161.15 - 1.33 mmol/L11/07/2024 5:43 AM [facility] Specimen (Source)Anatomical Location / LateralityCollection Method / Volume Collection TimeReceived TimeBloodVenous blood specimen / UnknownExisting Catheter / Gwhxcbr1011/07/2024 4:50 AM EDT11/07/2024 5:38 AM EDT Narrative Authorizing ProviderResult TypeResult StatusEduarda Bravo PA-CLAB BLOOD ORDERABLES Final ResultPerforming OrganizationAddressCity/State/ZIP CodePhone Number [facility] RESPIRATORY THERAPY [address] [place] [address], * Vasc Us Lower Extremity Pseudoaneurysm Duplex [...] pseudoaneurysm is present. ?? Procedure Note Fela Kinsgley MD - 11/10/2024 Procedure: The groin area [...] Signature Hemoglobin9.4(L)12.0 - 15.0 g/dL11/05/2024 9:24 AM [facility] ([place]) Eqnqhivfek12.5(L)36.0 - 45.0 %11/05/2024 9:24 AM [facility] ([place]) Specimen (Source)Anatomical Location / LateralityCollection Method / Volume Collection TimeReceived TimeBloodVenous blood specimen / UnknownExisting Catheter / Ysitizn4611/05/2024 9:01 AM EDT11/05/2024 9:09 AM EDT Narrative Authorizing ProviderResult TypeResult Fab ROBLERO BLOOD ORDERABLESFinal ResultPerforming OrganizationAddressCity/State/ZIP CodePhone Number [facility] ([facility]) [address] [place] [address] * Transfuse RBC (11/04/2024 4:57 PM EDT) [...] signed: Raegan Quinn. Authorizing ProviderResult TypeResult StatusKellilyladi [facility] PROCEDURES Final Result * HEPTEM C (11/03/2024 1:58 AM EDT)ComponentValueRef RangeTest MethodAnalysis TimePerformed AtPathologist SignatureHEPTEM C CLOTTING [id number] - 215 s 11/03/2024 1:58 AM EDTUT RESPIRATORY THERAPYHEPTEM C AMPLITUDE 5 ISP7459 - 51 mm11/03/2024 1:58 AM [facility] RESPIRATORY THERAPYHEPTEM C AMPLITUDE 10 MIN56 44 - 61 mm11/03/2024 1:58 AM [facility] RESPIRATORY THERAPYHEPTEM C AMPLITUDE 20 FQH6468 - 67 mm11/03/2024 1:58 AM [facility] RESPIRATORY THERAPYHEPTEM C MAXIMUM CLOT EKIPIMYP5072 - 69 mm11/03/2024 1:58 AM [facility] RESPIRATORY THERAPY Specimen (Source)Anatomical Location / LateralityCollection Method / Volume Collection TimeReceived GftqFhcft72/19/2025 1:58 AM EDT11/03/2024 1:58 AM EDT Narrative Authorizing ProviderResult TypeResult StatusKy Barbour [facility] BLOOD ORDERABLESFinal ResultPerforming OrganizationAddressCity/State/ZIP CodePhone Number [facility] RESPIRATORY THERAPY [address] [place] [address], [place] * FIBTEM C (11/03/2024 1:58 AM EDT)ComponentValueRef RangeTest MethodAnalysis TimePerformed AtPathologist SignatureFIBTEM C AMPLITUDE 5 VWJ038 - 16 mm 11/03/2024 1:58 AM [facility] RESPIRATORY THERAPYFIBTEM C AMPLITUDE 10 MUW195 - 17 mm11/03/2024 1:58 AM [facility] RESPIRATORY THERAPYFIBTEM C AMPLITUDE 20 MIN14 6 - 18 mm11/03/2024 1:58 AM [facility] RESPIRATORY THERAPYFIBTEM C MAXIMUM CLOT CEAGSOTA921 - 19 mm11/03/2024 1:58 AM [facility] RESPIRATORY THERAPYSpecimen (Source)Anatomical Location / LateralityCollection Method / VolumeCollection TimeReceived NsosTjmfq81/19/2025 1:58 AM EDT11/03/2024 1:58 AM EDT Narrative Authorizing ProviderResult TypeResult StatusKy Barbour [facility] BLOOD ORDERABLESFinal ResultPerforming OrganizationAddressCity/State/ZIP CodePhone Number [facility] RESPIRATORY THERAPY [address] [place] [address], [place] * (ABNORMAL) EXTEM C (11/03/2024 1:58 AM EDT)ComponentValueRef RangeTest Method Analysis TimePerformed AtPathologist SignatureEXTEM C CLOTTING QLRJ1353 - 73 s 11/03/2024 1:58 AM [facility] RESPIRATORY THERAPYEXTEM C AMPLITUDE 5 FLC5632 - 52 mm11/03/2024 1:[facility] THERAPYEXTEM C AMPLITUDE 10 NKQ6847 - 62 mm11/03/2024 1:58 AM [facility] RESPIRATORY THERAPYEXTEM C AMPLITUDE 20 MIN67 54 - 69 mm11/03/2024 1:58 AM [facility] RESPIRATORY THERAPYEXTEM C MAXIMUM CLOT HHSTXAYO7450 - 72 mm11/03/2024 1:58 AM [facility] RESPIRATORY THERAPYEXTEM C LYSIS INDEX 60 YEJ3331 - 100 %11/03/2024 1:58 AM [facility] RESPIRATORY THERAPY EXTEM C MAXIMUM LYSIS10(H)0 - 6 %11/03/2024 1:58 AM [facility] RESPIRATORY THERAPYComment:VT^Preliminary ResultSpecimen (Source)Anatomical Location / LateralityCollection Method / VolumeCollection TimeReceived TimeBlood 11/03/2024 1:58 AM EDT11/03/2024 1:58 AM EDT Narrative Authorizing ProviderResult TypeResult StatusCaleb Mary Jane Barbour MDLAB BLOOD ORDERABLESFinal ResultPerforming OrganizationAddressCity/State/ZIP CodePhone Number [facility] RESPIRATORY THERAPY [address] [place] [address], * (ABNORMAL) INTEM C (11/03/2024 1:58 AM EDT)ComponentValueRef RangeTest Method Analysis TimePerformed AtPathologist SignatureINTEM C CLOTTING [id number] - 205 s011/03/2024 1:58 AM [facility] RESPIRATORY THERAPYINTEM C AMPLITUDE 5 IEC4681 - 54 mm11/03/2024 1:58 [facility] THERAPYINTEM C AMPLITUDE 10 MIN 5746 - 63 mm11/03/2024 1:58 AM [facility] RESPIRATORY THERAPYINTEM C AMPLITUDE 20 PRK4316 - 68 mm11/03/2024 1:58 AM [facility] RESPIRATORY THERAPYINTEM C MAXIMUM CLOT OQNYSONZ8713 - 70 mm11/03/2024 1:58 AM [facility] RESPIRATORY THERAPYINTEM C LYSIS INDEX 60 AHG3364 - 100 %11/03/2024 1:58 AM [facility] RESPIRATORY THERAPY INTEM C MAXIMUM LYSIS12(H)0 - 7 %11/03/2024 1:58 AM [facility] RESPIRATORY THERAPYComment:[place]^Preliminary ResultSpecimen (Source)Anatomical Location / LateralityCollection Method / VolumeCollection TimeReceived TimeBlood 11/03/2024 1:58 AM EDT11/03/2024 1:58 AM EDT Narrative Authorizing ProviderResult TypeResult StatusKy Barbour MDLAB BLOOD ORDERABLESFinal ResultPerforming OrganizationAddressCity/State/ZIP CodePhone Number [facility] RESPIRATORY THERAPY [address] [place] [address], * (ABNORMAL) Protime-INR (11/03/2024 12:07 AM EDT) Only the most recent of2 resultswithin the time period is included. ComponentValueRef RangeTest MethodAnalysis TimePerformed AtPathologist Signature Vxnnrcl65.9(H)12.3 - 14.8 Miguqec5411/03/2024 12:53 AM [facility] ([facility])INR1.17(H)0.90 - 1.10011/03/2024 12:53 AM [facility] ([facility]) Comment: ACCCP RECOMMENDED INR FOR [...] TimeBloodVenous blood specimen / UnknownExisting Catheter / Kiiuucd9611/03/2024 12:07 AM EDT11/03/2024 12:27 AM EDT Narrative Authorizing ProviderResult TypeResult StatusDavance ROBLERO BLOOD ORDERABLES Final ResultPerforming OrganizationAddressCity/State/ZIP CodePhone Number [facility]) [address] [place] [address] * Fibrinogen (11/03/2024 12:07 AM EDT)ComponentValueRef RangeTest MethodAnalysis TimePerformed AtPathologist TfvsyjjcvZoqfgcseam484888 - 425 mg/dL11/03/2024 12:53 AM EDT[facility])Specimen (Source)Anatomical Location / LateralityCollection Method / VolumeCollection TimeReceived TimeBloodVenous blood specimen / UnknownExisting Catheter / Phtpglb9411/03/2024 12:07 AM EDT 11/03/2024 12:27 AM EDT Narrative Authorizing ProviderResult TypeResult StatusDavance ROBLERO BLOOD ORDERABLES Final ResultPerforming OrganizationAddressCity/State/ZIP CodePhone Number [facility]) [address] [place] [id number] * [place] AN ELECTIVE ENDOTRACHEAL AIRWAY (11/02/2024 8:56 PM EDT) Narrative Tarik Mayers CAA - 11/02/2024 8:56 PM EDT [place] Nair 11/02/2024 9:06 PM Airway Date/Time: 11/02/2024 8:56 PM Reason: elective Airway not difficult General Information and Staff Patient location during procedure: [place] Anesthesiologist: David Reyes MD Resident/[employer]ENTER SOLUTION ARCHITECT/CAA: [place] Nair Performed: resident/[employer] SOLUTION ARCHITECT/[place] Patient Condition Indications for airway management: anesthesia [...] ComponentValueRef RangeTest MethodAnalysis TimePerformed AtPathologist Signature PRODUCT [id number] BLOOD BANKUnit [id number] BLOOD BANKUnit ABOROO[facility] BLOOD BANKUnit RhPOSEASTERN [facility] BLOOD BANKCrossmatch InterpretationCOMPRESBYTERIAN [facility]ANT[facility] BLOOD BANKDispense StatusTREASTERN [facility]EXICO [facility] BLOOD BANKBlood Expiration [id number] BLOOD BANKProduct Blood Mnpb3831QYMF BLOOD BANKUnit Urozhq813KJFKPL BLOOD BANK Specimen (Source)Anatomical Location / LateralityCollection Method / Volume Collection TimeReceived HglnTxvyp57/18/2025 8:05 PM EDT Narrative Authorizing ProviderResult TypeResult StatusTomasa Disla MDBLOOD BANK PRODUCT ORDERABLESFinal ResultPerforming OrganizationAddressCity/State/ZIP Code Phone Number [facility] BLOOD BANK * Type and screen (11/02/2024 8:02 PM EDT)ComponentValueRef RangeTest Method Analysis TimePerformed AtPathologist SignatureABO MwywbrftM17/18/2025 8:[facility] BLOOD BANKRh XtqvUEZ0411/02/2024 8:42 [facility] BLOOD BANKAb ScrnNEG 11/02/2024 8:42 PM [facility] BLOOD BANKSpecimen (Source)Anatomical Location / LateralityCollection Method / VolumeCollection TimeReceived TimeBloodVenous blood specimen / UnknownExisting Catheter / Cbzosom5911/02/2024 8:02 PM EDT 11/02/2024 8:02 PM EDT Narrative Authorizing ProviderResult TypeResult StatusChrisadalberto Collins [facility] BLOOD BANK TEST ORDERABLESFinal ResultPerforming OrganizationAddressCity/State/ZIP Code Phone Number [facility] BLOOD BANK * Red Top (11/02/2024 8:00 PM EDT)ComponentValueRef RangeTest MethodAnalysis TimePerformed AtPathologist SignatureExtra TubeHold for add-ons.11/02/2024 10:02 PM [facility] ([facility])Comment:Auto resulted.Specimen (Source) Anatomical Location / LateralityCollection Method / VolumeCollection Time Received TimeBloodVenous blood specimen / Vwbnvtm9211/02/2024 8:00 PM EDT 11/02/2024 8:19 PM EDT Narrative Authorizing ProviderResult TypeResult StatusKy Barbour [facility] BLOOD ORDERABLESFinal ResultPerforming OrganizationAddressCity/State/ZIP CodePhone Number [facility] ([facility]) [address] [place] [address] * (ABNORMAL) Activated clotting time (11/02/2024 4:43 PM EDT) Only the most recent of7 resultswithin the time period is included. ComponentValueRef RangeTest MethodAnalysis TimePerformed AtPathologist Signature Activated Clotting Hpnj154(H)82 - 152 s011/02/2024 5:54 PM [facility] ([facility])Specimen (Source)Anatomical Location / LateralityCollection Method / VolumeCollection TimeReceived TimeBloodVenous blood specimen / Yqrxynz5111/02/2024 4:43 PM EDT11/02/2024 5:54 PM EDT Narrative Authorizing ProviderResult TypeResult StatusCaleb T Km JOHNSONLAB POINT OF CARE TEST DOCKED DEVICE UNSOLICITED RESULTSFinal ResultPerforming OrganizationAddress City/State/ZIP CodePhone Number [facility] ([place]) [address] [place] [address] * (ABNORMAL) POCT activated clotting time manually resulted (11/02/2024 4:40 PM EDT) Only the most recent of2 resultswithin the time period is included. ComponentValueRef RangeTest MethodAnalysis TimePerformed AtPathologist Signature Activated Clotting Time OZU932(A)82 - 152 secSpecimen (Source)Anatomical Location / LateralityCollection Method / VolumeCollection TimeReceived TimeBlood Venous blood specimen / Izdymtv4911/02/2024 4:40 PM EDT Narrative Authorizing ProviderResult TypeResult [...] infiltrated over the right femoral artery. ??A 6-Micronesian sheath was placed in right femoral artery. ?? Coronary angiography was performed with a JL4 and then repeated after IC nitroglycerin 50 mcg x 2. At this time, it was apparent that the LAD had a moderate stenosis and IVUS and iFR were performed. ??Heparin anticoagulation was used for this procedure. ACT was maintained at >250 seconds. A 6 Micronesian xb3 was engaged to the [place]. I then advanced a 0.014 ??guidewire to the distal left anterior descending. IVUS imaging was performed with a CinemaNowinity catheter after additional IC nitroglycerin and IV [...] Authorizing ProviderResult TypeResult StatusCaleb Mary Jane Barbour [facility] CARDIAC CATH PROCEDURESFinal Result * Light Green Top (11/02/2024 6:15 AM EDT)ComponentValueRef RangeTest Method Analysis TimePerformed AtPathologist SignatureExtra TubeHold for add-ons. 11/02/2024 8:01 AM [facility] ([place])Comment:Auto resulted.Specimen (Source)Anatomical Location / LateralityCollection Method / VolumeCollection TimeReceived TimeBloodVenous blood specimen / UnknownExisting Catheter / Blralgu9811/02/2024 6:15 AM EDT11/02/2024 6:38 AM EDT Narrative Authorizing ProviderResult TypeResult StatusKy ROBLERO BLOOD ORDERABLESFinal ResultPerforming OrganizationAddressCity/State/ZIP CodePhone Number [facility] ([facility]) [address] [place] [address] * (ABNORMAL) POCT activated clotting time docked device (11/01/2024 4:33 PM EDT) ComponentValueRef RangeTest MethodAnalysis TimePerformed AtPathologist SignatureActivated Clotting Time KIH690(A)82 - 152 [facility] ([facility])Specimen (Source)Anatomical Location / LateralityCollection Method / VolumeCollection TimeReceived LvelBpvjf10/17/2025 4:33 PM EDT Narrative Authorizing ProviderResult TypeResult Lena ROBLERO POINT OF CARE TEST DOCKED DEVICE ORDERABLESFinal ResultPerforming OrganizationAddress City/State/ZIP CodePhone Number [facility] ([facility]) [address] [place] [address] * CORONARY ANGIOGRAPHY, ULTRASOUND - CORONARY (11/01/2024 [...] on TPN presents a direct admission from [facility] with chief complaint of chest pain. [...] infiltrated over the right femoral artery. ??A 5-Micronesian Terumo sheath was placed in right femoral [...] was maintained at >250 seconds. A 5 Micronesian Cordis XB 3.0 guide was engaged to the left main. I decided to proceed with IVUS. ??I then advanced a Runthrough wire to the distal left anterior descending. Next, I advanced a LaserGen IVUS catheter. ??IVUS imaging was performed and [...] Details NSTEMI Authorizing ProviderResult TypeResult StatusKy Barbour [facility] CARDIAC CATH PROCEDURESFinal Result * (ABNORMAL) Anti-Xa (Heparin Level) (11/01/2024 6:04 AM EDT) Only the most recent of4 resultswithin the time period is included. ComponentValueRef RangeTest MethodAnalysis TimePerformed AtPathologist Signature Anti-Xa (Heparin)0.27(L)0.3 - 0.7 IU/mL11/01/2024 6:37 AM [facility] ([facility])Comment:Rivaroxaban and Apixaban will interfere with the anti Xa assay used to monitor UFH and LMWH.Specimen (Source)Anatomical Location / Laterality Collection Method / VolumeCollection TimeReceived TimeBloodBlood sample taken from central line / UnknownExisting Catheter / Qcumjds8311/01/2024 6:04 AM EDT 11/01/2024 6:15 AM EDT Narrative Authorizing ProviderResult TypeResult Lena Barbour [facility] BLOOD ORDERABLESFinal ResultPerforming OrganizationAddressCity/State/ZIP CodePhone Number [facility] ([facility]) [address] [place] [address] * (ABNORMAL) Toxicology Screen, Urine (11/01/2024 2:12 AM EDT)ComponentValueRef RangeTest MethodAnalysis TimePerformed AtPathologist SignatureBarbiturates XjysqssrMyazjswg44/17/2025 2:57 AM [facility] ([place]) BenzodiazepinesPositive(A)Ccxcbzxq97/17/2025 2:57 AM [facility] ([place])SefnhgxyrwptXgopxfknOeyxbvqr10/17/2025 2:57 AM [facility] ([facility])AfrsqvxxoBkzuflkkCmcicuwu58/17/2025 2:57 AM [facility] ([place])FzrxcomyupSgschjchYwiwxcpc80/17/2025 2:57 AM [facility] [facility] ([employer])DqretsxeoeaxmUjpruujsLkxxvwik16/17/2025 2:57 AM [facility] ([facility])OpiatesPositive(A)Aopcqxsb16/17/2025 2:57 AM [facility] ([facility])ShpeypsSswkisiyKnkioejh49/17/2025 2:57 AM [facility] ([facility])Amphetamines/WnjveipmrlhcwjgVtdnsmesCxliabml78/17/2025 2:57 AM [facility] ([facility])UmpteqpyzdhZfasiqmgLoktydbi06/17/2025 2:57 AM [facility] ([facility])Specimen (Source)Anatomical Location / Laterality Collection Method / VolumeCollection TimeReceived TimeUrineUrine specimen obtained by clean catch procedure / UnknownNon-blood Collection / Unknown 11/01/2024 2:12 AM EDT11/01/2024 2:18 AM EDT Narrative [facility] ([facility]) - 11/01/2024 2:57 AM EDT Unconfirmed screening results should only be used for medical purposes. Authorizing ProviderResult TypeResult StatusKy ROBLERO URINE ORDERABLESFinal ResultPerforming OrganizationAddressCity/State/ZIP CodePhone Number [facility] ([facility]) [address] [place] [address] * CORONARY ANGIOGRAPHY, LEFT HEART CATH (10/31/2024 [...] informed consent. ??she was brought to the r&d lab technician in a fasting state. The left wrist area was prepped and draped in usual fashion. Micropuncture technique was used for access in the radial artery. ??A 5-Micronesian x 11 cm sheath was placed. ??Verapamil was given through the sheath, and heparin was administered intravenously. ?? A 5 Micronesian JR4 diagnostic catheter was advanced and this [...] catheter was then downsized to a 4 Micronesian JR4 diagnostic catheter however this also was not able to engage the right coronary artery. ??Catheter was exchanged to a ??JR4 diagnostic catheter which could not engage the left coronary artery. ??Catheter was exchanged to a 4 Micronesian JL 3.5 diagnostic catheter which eventually was able to engage the left coronary artery. ??Angiography was performed in multiple views. Catheter was exchanged over the wire to a 4 Micronesian 3DRC catheter. ?? Multiple attempts were made [...] Study Details NSTEMI (non-ST elevated myocardial infarction) ([facility]) [I21.4] Authorizing ProviderResult TypeResult StatusCaleb T [facility] CARDIAC CATH PROCEDURESFinal Result * LIMITED ECHO (TTE) W/ COLOR FLOW AND IMAGING AGENT (10/31/2024 11:40 AM EDT) Anatomical RegionLateralityModalityOtherSpecimen (Source)Anatomical Location / LateralityCollection Method / VolumeCollection TimeReceived Time10/31/2024 11:16 AM EDT Narrative 10/31/2024 12:44 PM EDT 1 1 [facility] Heart Station [address] [place] [address] [phone] (fax) Echocardiogram-[facility] Name: JUAN GARCIA Study Date: 10/31/2024 11:16 AM B/P: 106 mmHg/67 mmHg HR: 70 bpm Date of : 1990 Location: [facility] Height: 66 in. Age: 34 [...] minimal pericardial effusion. Procedure Staff Reading Group: [facility] Auditor Supervisor: DAVID Kearney, RDCS ??Ordering Physician: KY BARBOUR ?? Wall Motion Scores -1 - hyperkinesia, 0 - not evaluated, 1 - normal, 2 - hypokinesia, 3 - akinesia, 4 - dyskinesia Procedure Note Mitul Moya MD - 10/31/2024 1 1 [facility] Heart Station [address] [place] [address] [phone] (fax) Echocardiogram-[facility] Name: JUAN GARCIA Study Date: 10/31/2024 11:16 AM B/P: 106 mmHg/67 mmHg HR: 70 bpm Date of : 1990 Location: [facility] Height: 66 in. Age: 34 [...] minimal pericardial effusion. Procedure Staff Reading Group: [facility] Auditor Supervisor: DAVID Kearney, RDCS Ordering Physician: KY BARBOUR Wall Motion Scores -1 - hyperkinesia, 0 - not evaluated, 1 - normal, 2 - hypokinesia, 3 - akinesia, 4 - dyskinesia Authorizing ProviderResult TypeResult Lena Barbour [facility] ECHO PROCEDURES Final Result * Hemoglobin A1c (10/31/2024 6:27 AM EDT)ComponentValueRef RangeTest Method Analysis TimePerformed AtPathologist SignatureHemoglobin A1C4.54.0 - 6.0 % 10/31/2024 1:13 PM [facility] ([facility])Estimated Average Mzsuwsi63 mg/dL10/31/2024 1:13 PM [facility] ([facility])Specimen (Source) Anatomical Location / LateralityCollection Method / VolumeCollection Time Received TimeBloodBlood sample taken from central line / UnknownExisting Catheter / Lwfekdn1910/31/2024 6:27 AM EDT10/31/2024 7:01 AM EDT Narrative Authorizing ProviderResult TypeResult Lena ROBLERO BLOOD ORDERABLESFinal ResultPerforming OrganizationAddressCity/State/ZIP CodePhone Number [facility] ([facility]) [address] [place] [address] * (ABNORMAL) Lipid panel (10/31/2024 6:27 AM EDT)ComponentValueRef RangeTest MethodAnalysis TimePerformed AtPathologist CshdorymtUnpdvlxsljvvd13<150 mg/dL 10/31/2024 9:31 AM [facility] ([facility])Comment: TRIGLYCERIDE REFERENCE RANGE: 20 YEARS AND OLDER ?CARDIOVASCULAR RISK LESS THAN 150 mg/dL ? LOW RISK 150 TO 199 mg/dL ?BORDERLINE RISK 200 mg/dL AND GREATER ? HIGH RISK Vinqigschdw359(L)120 - 200 mg/dL10/31/2024 9:31 AM [facility] ([facility]) LDL Ngyykqeria808 - 160 mg/dL10/31/2024 9:31 AM [facility] ([facility])HDL 4323 - 92 mg/dL10/31/2024 9:31 AM [facility] ([facility])Non HDL Hzxusraumoo9593/16/2025 9:31 AM [facility] ([facility])Total VLDL-C170 - 40 mg/dL10/31/2024 9:31 AM [facility] ([facility])Cholesterol/HDL Ratio2.7 mg/dL10/31/2024 9:31 AM [facility] ([facility])Specimen (Source)Anatomical Location / LateralityCollection Method / VolumeCollection TimeReceived Time BloodBlood sample taken from central line / UnknownExisting Catheter / Unknown 10/31/2024 6:27 AM EDT10/31/2024 7:11 AM EDT Narrative Authorizing ProviderResult TypeResult StatusKy Barbour [facility] BLOOD ORDERABLESFinal ResultPerforming OrganizationAddressCity/State/ZIP CodePhone Number [facility]) [address] [place] [address] * TSH3 Reflex to FT4 (10/30/2024 7:11 PM EDT)ComponentValueRef RangeTest Method Analysis TimePerformed AtPathologist SignatureTSH3.460.34 - 5.60 mIU/L 10/30/2024 8:01 PM [facility] ([facility])Specimen (Source)Anatomical Location / LateralityCollection Method / VolumeCollection TimeReceived Time BloodVenous blood specimen / UnknownExisting Catheter / Jyaueik3010/30/2024 7:11 PM EDT10/30/2024 7:18 PM EDT Narrative Authorizing ProviderResult TypeResult StatusDebbie Luna CNPLAB BLOOD ORDERABLES Final ResultPerforming OrganizationAddressCity/State/ZIP CodePhone Number [facility]) [address] [place], [place] [id number] * (ABNORMAL) aPTT - baseline (10/30/2024 7:11 PM EDT)ComponentValueRef RangeTest MethodAnalysis TimePerformed AtPathologist OttbvpqgmzPQV53.0(H)25.0 - 35.0 Yyypniq8610/30/2024 7:48 PM [facility] ([facility])Comment:Clinical significance of the APTT is questionable in the presence of heparin.Specimen (Source)Anatomical Location / LateralityCollection Method / VolumeCollection TimeReceived TimeBloodVenous blood specimen / UnknownExisting Catheter / Sxzoify9010/30/2024 7:11 PM EDT10/30/2024 7:18 PM EDT Narrative Authorizing ProviderResult TypeResult StatusDebbie Luna [facility] BLOOD ORDERABLES Final ResultPerforming OrganizationAddressCity/State/ZIP CodePhone Number [facility] ([facility]) [address] [place] [address] * B-type natriuretic peptide (10/30/2024 7:11 PM EDT)ComponentValueRef RangeTest MethodAnalysis TimePerformed AtPathologist SupaotvrbQYE176 - 100 pg/mL 10/30/2024 7:49 PM EDT[facility] ([facility])Specimen (Source)Anatomical Location / LateralityCollection Method / VolumeCollection TimeReceived Time BloodVenous blood specimen / UnknownExisting Catheter / Uwdwlre0010/30/2024 7:11 PM EDT10/30/2024 7:18 PM EDT Narrative Authorizing ProviderResult TypeResult Statuscharlotte Luna CN[facility] BLOOD ORDERABLES Final ResultPerforming OrganizationAddressCity/State/ZIP CodePhone Number [facility] ([facility]) [address] [place], [place] [id number] from Last 3 Months Insurance * Guarantor: Juan Garcia TypeRelation to PatientDate of BirthPhone Billing AddressPersonal/IwuqswQhpz30/[birth year][id number] [address] Advance Directives * Full Code (Latest Code Status on File) Date ActivatedDate XvqmxrqbdaiWkmwxqkf60/1/2025 8:05 PM10 4:42 PM * Full Code Date ActivatedDate InactivatedComments11/09/2024 12:31 PM11/13/2024 4:34 PM * Full Code Date ActivatedDate InactivatedComments10/30/2024 7:14 PM11/07/2024 7:10 PM * Full Code Date ActivatedDate InactivatedComments08/16/2024 9:21 PM08/20/2024 5:55 PM Care Teams Team MemberRelationshipSpecialtyStart DateEnd Date Britt Alas MD [address] [place] [place] [address] [facility]08/17/24
--- OUTSIDE RECORDS SUMMARY | 2024-12-16 22:45 | XMS_ITS | Encounter Summary ---
Author Organization [facility] Address [address] [place] [address] Care Team Providers Care Pharmacy Intern Name Role Phone Thomas Alas MD Primary Care Provider [phone] Encounter Details DateTypeDepartmentCare Team (Latest Contact Info)Zjlafnrbypf08/20/2025Travel Social History Tobacco UseTypesPacks/DayYears UsedDateSmoking Tobacco: NeverSmokeless Tobacco: NeverAlcohol UseStandard Drinks/WeekCommentsNot Currently0 (1 standard drink = 0.6 oz pure alcohol)[facility] UtilitiesAnswerDate RecordedIn the past 12 months has [...] homeless or living in a assisted (including now)?No11/15/2024Hunger Vital SignAnswerDate RecordedWithin the past 12 months, you worried that your food would run out before you got the money to buymore.Never true11/15/2024Ran Out of Food in the Last YearNot on file 11/15/2024CommentsNoSex and Gender InformationValueDate RecordedSex Assigned at CsrnhZehwbn11/03/2025 3:45 PM EDTLegal KjmYicrqa02/30/2022 12:07 AM EDTGender JfkysxviAnemhg00/03/2025 3:45 PM EDTSexual OrientationHeterosexual or Egrdjpig70/03/2025 3:45 PM EDTdocumented as of this encounter Plan of Treatment DateTypeDepartmentCare Team (Latest Contact Info)Lfkvrhynvhh11/17/2025 11:00 AM ESTOffice Visit [facility] [address] [place] [address] Wali Collins MD [address] [place] [phone] documented as of this encounter Visit Diagnoses Not on filedocumented in this encounter Care Teams Team MemberRelationshipSpecialtyStart DateEnd Date Thomas Alas MD [address] [facility] [address] [address] PCP - GeneralFamily Medicine08/17/24documented as of this encounter
--- OUTSIDE RECORDS SUMMARY | 2024-12-16 22:45 | XMS_ITS | Encounter Summary ---
Author Organization [facility] Address [address] [facility] [place] [address] Care Team Providers Care Rn Progressive Care Name Role Phone Thomas Alas MD Primary Care Provider Encounter Details DateTypeDepartmentCare Team (Latest Contact Info)Ojcwvsvldeo46/24/2025Telephone [facility] [address] [place] [address] Muna Michael, DEE Social History Tobacco UseTypesPacks/DayYears UsedDateSmoking Tobacco: NeverSmokeless Tobacco: NeverAlcohol UseStandard Drinks/WeekCommentsNot Currently0 (1 standard drink = 0.6 oz pure alcohol)[facility] UtilitiesAnswerDate RecordedIn the past 12 months has the electric, gas, oil, or water [employer] threatened to shut off services in your [...] homeless or living in a half-way (including now)?No11/15/2024Hunger Vital SignAnswerDate RecordedWithin the past 12 months, you worried that your food would run out before you got the money to buymore.Never true11/15/2024Ran Out of Food in the Last YearNot on file 11/15/2024CommentsNoSex and Gender InformationValueDate RecordedSex Assigned at LmmqeZkvmez54/03/2025 3:45 PM EDTLegal XocPjhawu28/30/2022 12:07 AM EDTGender TpxxjeppMjqlda61/03/2025 3:45 PM EDTSexual OrientationHeterosexual or Sdojakhm64/03/2025 3:45 PM EDTdocumented as of this encounter [...] Plan of Treatment DateTypeDepartmentCare Team (Latest Contact Info)Rjudllburvg08/17/2025 11:00 AM ESTOffice Visit [facility] [address] [place] [address] Wali Collins MD [address] [place] [address] documented as of this encounter Visit Diagnoses Not on filedocumented in this encounter Care Teams Team MemberRelationshipSpecialtyStart DateEnd Date Thomas Alas MD [address] [place] [address] PCP - GeneralFamily Medicine08/17/24documented as of this encounter
--- OUTSIDE RECORDS SUMMARY | 2024-12-16 22:45 | XMS_ITS | Clinical Summary ---
Author Organization [facility] Address [address] [place] [address] Care Team Providers Care Authorizer Name Role Phone Anna Mendez METAL WELDER Unavailable Thomas Alas MD Primary Care Provider [phone] Allergies Active AllergyReactionsCriticalityNoted TacuMjtjxnnoGacmkys64/21/2023Morphine And CodeineNausea And Vomiting,Other,JsmmcofIzvvjk03/23/2014 Other Reaction(s): GI Upset, Nausea/vomiting, Not available, Other (See Comments), unknown NsaidsGI mcrbfdntjxcTjx48/15/2022 S/p RYGB Other Reaction(s): Nausea/vomiting Other Reaction(s): Other (See Comments), Unknown Gastric bypass S/p RYGB S/p RYGB Oxycodone-YhkgxikzgdysxQjkvknfviiiGtrm80/30/5966Kkgerocg01/14/2024Wound Dressing WlmdwdpnDdaqtZhagvr93/23/2020 Sensitive to certain adhesive tapes. Redness and [...] the morning and 1 puff before bedtime.08/20/2021ctive AdRollTouch Ultra test strip USE TO TEST BLOOD SUGAR TWICE DAILY08/17/2021ctive hydrOXYzine HCl (Atarax) 25 MG tablet TAKE 1 TABLET BY MOUTH TWICE A DAY NEEDED FOR ANXIETY/DYZAUWMX99/24/2023 Active Lancets (OneTouch Delica Plus Ednkps88E) misc USE TO TEST BLOOD SUGAR TWICE DAILY08/17/2021ctive liothyronine (Cytomel) 5 MCG tablet liothyronine 5 mcg lhbsry8405/21/2022ctive mirtazapine (Remeron) 15 MG tablet Take 15 [...] & Plan: Assessment: monitored per PCP Patellofemoral ctoybjhxx62/20/2023Other specified noninflammatory disorders of rdrbys3108/04/2022Mixed incontinence urge and iphazo6708/04/2022Mixed anxiety and depressive adzauolq04/20/2023Internal derangement of right /20/2023 GERD (gastroesophageal reflux disease)08/04/2022 Overview (08/04/2022): Last Assessment & Plan: Assessment: takes meds,stable Gall stone08/04/20220826Hnkxohrv79/20/6548Qkntdfcew38/20/2023hronic constipation 08/04/20223805Uuwejl47/20/2023 Overview (08/04/2022): Takes Pro FE daily. Last Assessment & Plan: Assessment: iron infusions ~1 month ago Acute pain of right knee08/04/2022Vaginal pain08/04/2022Right flank pain 08/04/2022Rash and nonspecific skin xmhlilay20/07/2023History of sleep apnea 06/24/2022History of Isabel-en-Y gastric wfucju8406/24/2022ipolar disorder 06/21/2022astric xcuwyl1601/29/2022ONV (postoperative nausea and vomiting) 01/29/2022Ventral hernia without obstruction or rikhwcaf76/27/2022 Overview (08/04/2022): Last Assessment & Plan: Assessment: will have surgery Calculus of gavhbn7003/10/2021History of sleeve vjhekjnxydf85/22/2021 Overview (08/04/2022): Last Assessment & Plan: Assessment: 08/2020, down 50 lbs Ekzlih3208/21/2020 Overview (08/04/2022): Last Assessment & Plan: Assessment: Advair BID and Albuterol daily Unilateral primary osteoarthritis, right knee04/26/2020bnormal finding on imaging of liver04/07/2020evere protein-calorie malnutrition (HHS-HCC) 1Right upper quadrant abdominal pain01/31/2020Situational stress 01/03/2020Panic disorder without ldojsuoinzg93/06/2020Back pain10/15/2019Malaise and keqczrt3110/06/2019Chronic bilateral low back pain without xskkyhte55/21/2020 Rczdhtd8110/06/20199245Uvtrxyj33/10/2020 Overview (08/04/2022): Last Assessment & Plan: Assessment: BMI 31.8 Benign essential HTN09/25/2019 Overview (08/04/2022): Last Assessment & Plan: Assessment: not on meds,monitored per PCP BP 141/70 pulse 62 Regurgitation of food09/25/2019Preoperative rismcycylmf75/10/2020Nausea 09/25/2019Obstructive sleep apnea qtwyhvij40/23/2019 Overview (08/04/2022): wears mask every night Last Assessment & Plan: Assessment: uses CPAP nightly Laryngopharyngeal kyoldv4110/07/2018Adrenal fpeaumaolasz75/20/2019Insulin wxykxzqmbn17/19/2019Reactive egfgcidcugie31/19/2019Iron xfzaungxlb45/05/2019 Chronic fatigue wbdsfvoq40/05/2019Vitamin D hjcoixynmk21/05/2019Insomnia 09/15/2018Maltracking of right ryhljnq4806/27/2018Internal derangement of right knee06/15/2018Osteoarthritis of patellofemoral joint05/30/2018Chondromalacia of patella, right05/30/2018Arthritis of right knee05/30/2018Hypothyroidism affecting in second wcqitslck34/08/2018Hypertensive lyquastb86/30/2018 39 weeks gestation of ([facility])11/23/2016Polycystic vcmwehd5510/02/2013 Asthma without status tyqxzjrehwk97/18/2014Gastric ulcer02/15/2013 Overview (08/04/2022): Last Assessment & Plan: [...] Date RecordedSex Assigned at BirthNot on fileLegal PywHlfotf20/01/2023 8:33 PM EDTGender IdentityNot on fileSexual OrientationNot on file Last Filed Vital Signs Vital SignReadingTime TakenCommentsBlood Wqdjluny804/8009 8:40 AM EDT Pulse--Temperature--Respiratory Rate--Oxygen Saturation--Inhaled Oxygen Concentration--Lgfrli34.9 kg (185 lb)12/14/2023 2:11 PM SIOHetdnh375.6 cm (5' 6 )12/14/2023 2:11 PM EDTBody Mass Index29.8612/14/2023 2:11 PM EDT Plan of Treatment Not on file Insurance Care Teams Team MemberRelationshipSpecialtyStart DateEnd Date Thomas Alas MD [address] [place] [address] PCP - GeneralFamily Rjocwrzk74/29/24 Anna Mendez NP [address] [place] [address] Referring Physicianmily Medicine07/23/22
--- OUTSIDE RECORDS SUMMARY | 2024-12-16 22:45 | XMS_ITS | Encounter Summary ---
Author Organization [facility] Address [address], [address] [place] [address] Care Team Providers Care Block Saw Operator Name Role Phone Thomas Alas MD Primary Care Provider [phone] Encounter Details DateTypeDepartmentCare Team (Latest Contact Info)Dvnpptlislp09/18/2025Travel Social History Tobacco UseTypesPacks/DayYears UsedDateSmoking Tobacco: NeverSmokeless [...] Safety Domain Source: IP Abuse ScreeningAnswerDate RecordedPhysical qfxeuUypsjr15/18/2025 Verbal ryjiqExpmol02/18/2025Emotional hujjhTychsb10/18/2025Financial abuseDenies 12/02/2024Sexual mrlydOsxpko71/18/2025CommentsNoSex and Gender InformationValueDate RecordedSex Assigned at BirthNot on fileLegal SexFemale 04/12/2013 2:41 PM ESTGender IdentityNot on fileSexual OrientationNot on file documented as of this encounter Functional Status documented as of this encounter Plan of Treatment Not on file documented as of this encounter Visit Diagnoses Not on filedocumented in this encounter Care Teams Team MemberRelationshipSpecialtyStart DateEnd Date Thomas Alas MD [address] [place] [address] PCP - GeneralFamily Medicine11/08/24documented as of this encounter
--- OUTSIDE RECORDS SUMMARY | 2024-12-16 22:45 | XMS_ITS ---
Author Organization [facility] Address [address] [place] [address] Care Team Providers Care Cash Shortage Investigator Name Role Phone Thomas Alas MD Primary Care Provider [phone] Active Problems ProblemNoted DateDiagnosed DateAbnormal thyroid blood test12/05/2024llergic wnoheczwynwgle28/21/5128Zakeftbt51/21/2025 Overview (12/05/2024): Problem List clean-up per request of Phys. EHR Cmte Edema12/05/20245437Imwlhorpibso67/21/5676Ywjhlepkgdx88/21/2025Otitis media of left ear12/05/2024Postgastric surgery bmwbunlr59/21/7176Ecsndsomt51/21/2025 Overview (12/05/2024): Problem List clean-up per request of Phys. EHR Cmte Common bile duct lcsxoiwzwy17/02/2025 Assessment & Plan (11/16/2024 2:13 AM EDT): CT chest/abd/pelvis noted CBD dilation and apperance of complex inflammatory changes. Patient has required multiple doses of opiates and antiemetics to control symptoms. Request to transfer to the [facility] where much of her advanced care has been provided with Specific concern that she may need ERCP/advanced endoscopy to further evaluation Pain management GI consult Disorder of endocrine qjszit1011/09/2024Lumbar omyxcdzbmaemg14/25/2025Migraine 11/09/2024Severe protein-calorie malnutrition (Baxter: less than 60% of standard weight)11/09/2024Pseudoaneurysm of right femoral yekjri8211/09/2024 Assessment & Plan (11/12/2024 12:39 PM EDT): [...] pseudoaneurysm 11/02 -stable - follow Hgb Myocardial sfurdg4511/09/2024 Assessment & Plan (11/12/2024 12:39 PM EDT): [...] need to uptitrate verapamil if BP allows Agooafke64/18/2025Chest pain10/30/2024 Assessment & Plan (11/16/2024 2:13 AM [...] without complication, without long-term current use of temyycv9310/30/2024 Assessment & Plan (11/12/2024 12:39 PM EDT): [...] at home, will begin ISS, ACHS Primary hirniumzzgcp75/15/2025Other ugtmhchtcblwqa41/15/7321Uiizch55/15/2025 Assessment & Plan (11/02/2024 1:29 PM EDT): [...] Stable, last BM yesterday Median arcuate ligament fmnwerro95/15/2025 Assessment & Plan (11/12/2024 12:39 PM EDT): [...] and then MALS release S/P laparoscopic sleeve axwgjkjhoco90/15/2025 Assessment & Plan (11/12/2024 12:39 PM EDT): [...] 9:00 PM EDT): - Stable Protein calorie avmjebavmpuf35/15/2025 Assessment & Plan (11/02/2024 1:29 PM EDT): [...] pain today patient brought urgently back to Engineering Laboratory Technician Assessment & Plan (11/01/2024 11:57 AM [...] -Pending TTE, cath Spontaneous dissection of coronary gisloe2110/30/2024 Assessment & Plan (11/12/2024 12:39 PM EDT): [...] pain today patient brought urgently back to Engineering Laboratory Technician Feeding uqxsbkwdmgra65/09/2025roken central line09/21/2024Long term (current) use of opiate /07/2025Poor response to enteral rurgffaar94/28/2025 Sepsis due to Lxquzsghdj06/04/2025 Assessment & Plan (08/19/2024 1:03 PM EDT): - source is likely the cellulitis around the J-tube status post J-tube removal. - CT scan from [facility] showing no abscess. - Infectious disease recommendations appreciated, continue with ceftriaxone. - Repeat blood cultures on 08/16: NGTD - central line in place, does not look like infected, continue monitoring, central line care. Assessment & Plan (08/18/2024 12:20 PM EDT): - source is likely the cellulitis around the J-tube status post J-tube removal. - CT scan from [facility] showing no abscess. - Infectious disease recommendations appreciated, continue with ceftriaxone. - Repeat blood cultures on 08/16: NGTD - central line in place, does not look like infected, continue monitoring, central line care. Sepsis due to Xgxnhfjeebqc57/04/2025 Assessment & Plan (08/19/2024 1:03 PM EDT): - source is likely the cellulitis around the J-tube status post J-tube removal. - CT scan from [facility] showing no abscess. - Infectious disease recommendations appreciated, continue with ceftriaxone. - Repeat blood cultures on 08/16: NGTD - central line in place, does not look like infected, continue monitoring, central line care. Assessment & Plan (08/18/2024 12:20 PM EDT): - source is likely the cellulitis around the J-tube status post J-tube removal. - CT scan from [facility] showing no abscess. - Infectious disease recommendations appreciated, continue with ceftriaxone. - Repeat blood cultures on 08/16: NGTD - central line in place, does not look like infected, continue monitoring, central line care. Jztfjumnlxsvc65/04/2025 Assessment & Plan (11/12/2024 12:39 PM EDT): [...] admission. - As needed antiemetics Chronic pain ynxxmmvz51/04/2025 Assessment & Plan (11/12/2024 12:39 PM EDT): [...] and scheduled tramadol. Continue with as needed Canova. Assessment & Plan (08/18/2024 12:20 PM EDT): - continue with home meds including fentanyl patch and scheduled tramadol. Continue with as needed Canova. 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 Assessment & Plan (08/18/2024 12:20 PM EDT): - status postresection. History of adrenal lomjoxxbtkkmi43/04/2025 Assessment & Plan (11/12/2024 12:39 PM EDT): [...] PM EDT): - continue with dexamethasone Acquired ejwjhskhugwivy65/04/2025 Assessment & Plan (11/16/2024 2:13 AM EDT): [...] 12:20 PM EDT): - continue with levothyroxine. Ywkwzcvqgqkzkv87/03/2025 Assessment & Plan (11/12/2024 12:39 PM EDT): [...] well as other thyroid function testing Morbid kjsqpzo5808/17/2024 Assessment & Plan (08/19/2024 1:03 PM EDT): [...] daily DVT prophylaxis is VTE protocols per [facility] GI prophy Protonix Monitor labs) Obtain blood cultures Comments IV Vanco and cefepime Consult infectious diseases Early ambulation I discussed the plan of care with the patient and she is in agreement. Wfztruiqmi88/02/2025 Assessment & Plan (08/17/2024 1:27 AM EDT): -Unclear blood cultures - Commence patient on Vanco/cefepime - Monitor patient blood cultures - Also evaluate lab tests and correct abnormalities - Consult infectious disease - Obtain 2D echocardiogram History of laparoscopic fyzfhzwroscmiup05/25/2025hronic, continuous use of beusknm8504/11/2024Starvation eenbnlngptvy09/25/2025Intestinal lddjzgfej67/07/2024 Screening for diabetes mellitus (DM)01/22/2024History of small bowel obstruction 01/21/2024Impaired intestinal /18/3092Nqowf00/25/2024urrent use of steroid ubsrocpvdi21/21/2024ommunity acquired pneumonia of left lower lobe of lung08/07/2023Idiopathic jvotmmvjibr70/21/2024spiration pneumonia of left lower lobe due to vomit08/04/2023Syncope and zyxpnlgv00/19/2024Heart qultomf3906/29/2023 Acute renal failure superimposed on chronic kidney fixtkwt5506/29/2023Hypokalemia 06/29/2023ecreased oral gmywce2505/25/20237116Hwkiiaqemarvcb50/19/2024nxiety and pudfuvrsvm76/23/2023Feeding bnwiflq6412/07/2022Therapeutic drug monitoring 12/07/20228110Tjadtkuxybb80/12/2023ilious vomiting with eetiuw9510/28/2022Intractable vomiting with ggpofv2310/25/20223873Lgrgkr64/20/2023 Overview (11/09/2024): Takes Pro FE daily. Last Assessment & Plan: Assessment: iron infusions ~1 month ago Acute pain of right knee08/04/2022all stone08/04/2022Internal derangement of right fsnhuplq66/20/2023Mixed incontinence urge and xacxqy1908/04/2022Other specified noninflammatory disorders of cvywzx9008/04/2022atellofemoral pain syndrome of right knee08/04/2022Right flank pain08/04/2022Vaginal pain08/04/2022 Rash and nonspecific skin hynhnffj86/07/2023History of Isabel-en-Y gastric bypass 06/24/2022ipolar swkjajak23/07/2023astric vhucmm5901/29/2022Iron deficiency fvaxej7911/01/2021Ventral hernia without obstruction or kuyxpoec89/27/2022 Overview (12/05/2024): Last Assessment & Plan: Assessment: will have surgery Calculus of axdozs3503/10/2021bnormal finding on imaging of liver04/07/2020 Moderate recurrent major ivoplgumzv96/18/2020Situational phnsgf3101/03/2020Panic disorder without bhhubgzoyng30/06/2020Trauma and stressor-related disorder 11/21/2019Duodenogastric reflux of bile11/16/20195563Ysbzxe31/10/2020Preoperative otazalrcshw15/10/2020Regurgitation of food09/25/2019Laryngopharyngeal reflux 10/07/2018Obstructive sleep apnea bpmoaeuy20/23/2019 Overview (12/05/2024): wears mask every night Ovjxkdlfdttocv87/20/2019Reactive qepxfmgvogit38/19/2019Chronic fatigue syndrome 09/19/2018Iron lzhgtscpza70/05/2019Vitamin D npeyuvcqbd30/05/2019Insomnia 09/15/2018Maltracking of right bxcqwgk0306/27/2018Chondromalacia of patella, right 05/30/2018Arthritis of right knee05/30/201839 [...]
--- OUTSIDE RECORDS SUMMARY | 2024-12-16 22:45 | XMS_ITS | Encounter Summary ---
Author Organization [facility] Address [address], [address] [place] [address] Care Team Providers Care Coal Sampler Name Role Phone Thomas Alas MD Primary Care Provider [phone] Encounter Details DateTypeDepartmentCare Team (Latest Contact Info)Akfdojyyxkl65/27/2025Results Follow-Up [facility] Emergency Department [address] [phone] Kera Smith RN Social History Tobacco UseTypesPacks/DayYears UsedDateSmoking Tobacco: NeverSmokeless [...] Safety Domain Source: IP Abuse ScreeningAnswerDate RecordedPhysical ktacuBtzxrm72/18/2025 Verbal goqkmFgolwz32/18/2025Emotional lrbhrRvbzlv93/18/2025Financial abuseDenies 12/02/2024Sexual kysdtRdgmze36/18/2025CommentsNoSex and Gender InformationValueDate RecordedSex Assigned at BirthNot on fileLegal SexFemale 04/12/2013 2:41 PM ESTGender IdentityNot on fileSexual OrientationNot on file documented as of this encounter Plan of Treatment Not on file documented as of this encounter Visit Diagnoses Not on filedocumented in this encounter Care Teams Team MemberRelationshipSpecialtyStart DateEnd Thomas Alas MD [address] [place] [address] PCP - GeneralFamily Medicine11/08/24documented as of this encounter
--- OUTSIDE RECORDS SUMMARY | 2024-12-16 22:45 | XMS_ITS | Clinical Summary ---
Author Organization [facility] Address [address] 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 30 MG ACEHDCPBB58/26/2023 Active polyethylene glycol (Glycolax, Miralax) 17 gram/dose [...] pain06/30/2023cute renal failure superimposed on chronic kidney nchwzuu5906/29/20233296Sanpqdukhdl20/14/2024Heart yqukehd1106/29/2023bdominal pain03/16/2023Nausea and shmyscni19/19/2024OSA (obstructive sleep apnea)03/05/20232275Xjbmvf17/19/5353Ppjlknk44/19/2024 Fmokhgcnzriaqk60/19/2384Hyrpfxghie80/19/2024Median arcuate ligament syndrome 02/18/2023 Encounters DateTypeDepartmentCare RljlMzccyqohsjg62/26/2025 11:00 AM EDT - 10/10/2024 11:59 PM EDTHospital Encounter [facility] [address] [place] [address] Discharge Disposition: Home10/09/2024 10:15 AM EDTTelemedicine [facility] [address] [place] [phone] Jerad Magaña MD Median arcuate ligament syndrome (Primary Dx) Discharge Disposition: Home10/06/2024 9:00 AM EDTAncillary Procedure [facility] [address] [place] [address] Median arcuate ligament uepytyih61/04/2025Orders Only [facility] [address] [place] [phone] Crystal Monique, DEE Median arcuate ligament syndrome [...] RecordedIn the past 12 months has the HAUL, gas, oil, or water [employer] threatened to shut off services in your [...] relatives?Twice a week06/30/2023How often do you attend alevism or anabaptism services?More than 4 times per year06/30/2023o you belong to any clubs or organizations such as alevism groups, unions, fraternal [...] heating?Not hard at all06/30/2023HQ-2AnswerDate RecordedPatient Health Questionnaire-2 [facility] [place] of Occupational Health - Occupational Stress QuestionnaireAnswerDate [...] steady place to sleep or slept in hortonelter (including now)?No 06/30/2023UDIT-CAnswerDate RecordedQ1: How often do you have a drink containing alcohol?Never10/09/2024Q2: How many drinks containing alcohol do you have on a typical day when you are drinking?Patient does not drink10/09/2024Q3: How often do you have six or more drinks on one occasion?Never10/09/2024Comments UnknownSex and Gender InformationValueDate RecordedSex Assigned at BirthFemale 02/23/2023 4:19 AM ESTLegal CnuJslwll32/26/2022 6:26 PM ESTGender IdentityFemale 03/02/2023 2:54 PM ESTSexual PakczpbzwsiOaankrrv04/16/2024 2:54 PM EST Last Filed Vital Signs Vital SignReadingTime TakenCommentsBlood Grakiguz66/57007/03/2023 7:00 AM EDT Nbzwz21282/18/2024 7:00 AM ABGRvavgcyxyny91 ??C (98.6 ??F)07/03/2023 7:00 AM EDT Respiratory Rxlv472607/03/2023 7:00 AM EDTOxygen Rycdecrxvg157%07/03/2023 7:00 AM EDTInhaled Oxygen Concentration--Jaoqgy50.2 kg (168 lb)06/29/2023 6:16 PM EDT Vmimoa776.6 cm (5' 6 )06/29/2023 6:16 PM EDTBody Mass Index27.1205 6:16 PM EDT Plan of Treatment Health MaintenanceDue DateLast UbnqZybuolzbMjlwtefjccvuqp82/17/1990HIV Screening 1989Lipid Panel1989Yearly Adult Afqifspo96/17/1990MMR Vaccines (1 of 1 - Standard series)1990Hepatitis C Skolbwvnm69/17/2008Hepatitis A Vaccines (1 of 2 - Risk 2-dose series)2008Hepatitis B Vaccines (1 of 3 - 19+ 3-dose series)2008Pneumococcal Vaccine: Pediatrics and At-Risk Adult Patients (1 of 2 - PCV)2008Zoster Vaccines (1 of 2)2008HPV/Cotest 2010HPV Vaccines (1 - Risk 3-dose Standard series)2016COVID-19 Vaccine (2 - Woo risk series)07/21//ervical Cancer Screening 4Pap Smear/07/2020TSH Level09/11/010690/3Creatinine Level/, 07/01/2023, 06/30/2023, Additional history exists Potassium Level/, 07/01/2023, 06/30/2023, Additional history existsInfluenza Vaccine (#1)/, 11/16/2021, 01/01/2021, Additional history existsDiabetes Rhnhkstxq25/06/821612/07/2024, 08/19/2024, 08/18/2024, Additional history existsDTaP/Tdap/Td Vaccines (2 [...] LotMembrane, Seprafilm, 5 X 6 In - [id number] Implanted:Qty: 1 on 03/05/2023 [facility] HomeImplantN/A: AbdomenFORMERLY [facility] [id number] / / [id number] Procedures Procedure NamePriorityDate/TimeAssociated DiagnosisCommentsCT TRANSFER OF OUTSIDE JELNVZeqqpbl23/26/2025 11:03 AM EDT VASC US MESENTERIC ARTERY DUPLEX KXXPFEMSXaxzgna63/22/2025 9:40 AM EDT Median arcuate ligament syndrome POCT UOKEBBILrgwywd64/18/2024 7:17 AM EDT RENAL FUNCTION LKYZYEjdxrrt36/17/2024 6:47 AM EDT from Last 3 Months [...] AM EDT Narrative 10/06/2024 1:59 PM EDT ?[place] [address] ? Vascular Lab Report VASC US MESENTERIC ARTERY DUPLEX COMPLETE Patient Name: ?JUAN MRenetta ATKINSONY ? Reading Physician: [id number] Rivera ?MD Study Date: ?10/06/2024 ? Ordering Provider: [id number] JERAD MAGAÑA MRN/PID: ? [id number] ?Fellow: Accession#: ?[id number] ?Technologist: ?Leia Degroot RVT Date of /Age: 2 1990 / 34 ?Technologist 2: ? years Gender: ?F ? Admission Status: ??Outpatient ?[facility] ? [facility] ? 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 82562 Mesenteric Duplex scan ` CONCLUSIONS: Mesenteric: Superior [...] cm/s KEELY Prox PSV ?? 118 cm/s [id number] Rivera MD Final Procedure Note Ann Rivera MD, MS - 10/06/2024 [place] [address] Vascular Lab Report 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 CPT Codes: 62082 Mesenteric Duplex scan ` CONCLUSIONS: Mesenteric: Superior [...] 61 cm/s KEELY Prox PSV 118 cm/s [id number] Ann Rivera MD Final Authorizing ProviderResult TypeResult StatusWtramaine Magaña [facility] VASCULAR PROCEDURESFinal Result * (ABNORMAL) POCT GLUCOSE (07/03/2023 7:17 AM EDT)ComponentValueRef RangeTest MethodAnalysis TimePerformed AtPathologist SignaturePOCT Tzbqytm745(H)74 - 99 mg/dL07/03/2023 7:24 AM [facility] LABSpecimen (Source) Anatomical Location / LateralityCollection Method / VolumeCollection Time Received TimeBloodCapillary blood specimen / Xadpmdt2907/03/2023 7:17 AM EDT 07/03/2023 7:24 AM EDT Narrative Authorizing ProviderResult TypeResult StatusCygopi ROBLERO POINT OF CARE TEST DOCKED DEVICE UNSOLICITED RESULTSFinal ResultPerforming OrganizationAddress City/State/ZIP CodePhone Number [facility] [address] [place], [place] [phone] * (ABNORMAL) Renal Function Panel (07/02/2023 6:47 AM EDT)ComponentValueRef RangeTest MethodAnalysis TimePerformed AtPathologist CctehqkymMeugksz543(H)65 - 99 mg/dL07/02/2023 7:53 AM [facility] WLTOihiar405301 - 145 mmol/L07/02/2023 7:53 AM [facility] LABPotassium3.93.4 - 5.1 mmol/L07/02/2023 7:53 AM [facility] EKWJvhykxpt97939 - 107 mmol/L07/02/2023 7:53 AM [facility] MPOTbtzrpjowkk99(L)24 - 31 mmol/L07/02/2023 7:53 AM [facility] LABUrea Zugbxhhb760 - 25 mg/dL07/02/2023 7:53 AM [facility] LABCreatinine0.700.40 - 1.60 mg/dL07/02/2023 7:53 AM [facility] LABeGFR>90>60 mL/min/1.73m*2 07/02/2023 7:53 AM [facility] LABComment: Calculations of estimated GFR are performed using the 2020 CKD-EPI Study Refit equation without therace variable for the IDMS-Traceable creatinine methods. https://jasn.asnjournals.org/content/early/ASN.2429877923 Calcium8.68.5 - 10.4 mg/dL07/02/2023 7:53 AM [facility] LAB Phosphorus4.02.5 - 4.5 mg/dL07/02/2023 7:53 AM [facility] LAB Albumin4.03.5 - 5.0 g/dL07/02/2023 7:53 AM [facility] LABAnion Gap 11<=19 mmol/L07/02/2023 7:53 AM [facility] LABSpecimen (Source) Anatomical Location / LateralityCollection Method / VolumeCollection Time Received TimeBloodVenous blood specimen / Dfdgttv4307/02/2023 6:47 AM EDT 07/02/2023 6:58 AM EDT Narrative Authorizing ProviderResult TypeResult StatusOludatelma ROBLERO BLOOD ORDERABLESFinal ResultPerforming OrganizationAddressCity/State/ZIP CodePhone Number [facility] [address] [place] [address] from Last 3 Months or Most Recently Relevant to Health Maintenance Insurance Advance Directives For more information, please contact: [phone] (Available ) * Full Code (Latest Code Status on File) Date ActivatedDate InactivatedComments03/05/2023 2:37 PMQuestionAnswerComments Plan of Care:* Code Status Discussion Completed Decision Maker:* Patient Care Teams Team MemberRelationshipSpecialtyStart DateEnd Date Generic Provider, No Assigned Pcp, [place] [address] PCP - GeneralGeneral Practice06/29/23
[2024-12-16] MEDS: HYDROMORPHONE HCL 1 MG/ML CARTRIDGE IV (22:50)
--- NOTE | 2024-12-16 22:55 | XR_ITS ---
The [address] [address] Patient Name: JUAN KONG MRN: [id number] date: 1990 Sex: F Assigned Patient Location: ED.MAIN Current Patient Location: ED.MAIN Accession/Order Number: [id number] Exam Date: 12/16/2024 22:50 Report Date: 12/17/2024 07:48 At the request of: LESLIE TERRAZAS MD Procedure: XR chest 1V PA CHEST: CLINICAL HISTORY: CP COMPARISON: 12/08/2024 Catheter noted with tip tip terminates level of the right cavoatrial junction. Otherwise unremarkable cardiomediastinal. Lungs clear. No effusion or pneumothorax. XR/XR chest 1V IMPRESSION: Negative acute pleural-parenchymal disease. Impression dictated by: Tio Lundberg M.D. 12/17/2024 7:48 AM Dictation Location: [place] [address] Electronically authenticated by: [id number] Y Date: 12/17/2024 07:48
[2024-12-16] MEDS: PROCHLORPERAZINE 10 MG/2 ML VIAL IV (23:33)
[2024-12-16] MEDS: DIPHENHYDRAMINE HCL 50 MG/ML VIAL 25 MG IVP (23:33)
--- NOTE | 2024-12-16 23:38 | ED.GENADUL1 ---
HPI HPI - General Adult General Chief complaint: Abdominal Pain Stated complaint: Abdominal Pain Time Seen by Provider: 12/16/24 22:37 Mode of arrival: ambulance Limitations: no limitations History of Present Illness HPI narrative: 34-year-old female presents to the emergency department for chest and abdominal pain which started about 12 hours ago. She states she has been vomiting. Everything hurts. No fever. No trauma. The pain is severe. She has a long history of gastroparesis. Related Data Home Medications ?Medication ?Instructions ?Recorded ?Confirmed hydroxyzine HCl 25 mg tablet 25 mg PO BID PRN anxiety 09/17/22 12/08/24 topiramate 100 mg tablet 100 mg PO BID 09/17/22 12/08/24 metoclopramide HCl 10 mg tablet 10 mg PO BID PRN nausea and 06/14/23 12/08/24 vomiting escitalopram oxalate 20 mg tablet 20 mg PO DAILY 06/15/23 12/08/24 levothyroxine 75 mcg tablet 75 mcg PO DAILY 06/15/23 12/08/24 acetaminophen 325 mg tablet (Pain 650 mg PO Q4H PRN pain 06/24/23 12/08/24 Relief (acetaminophen)) blood sugar diagnostic ([facility] 03/29/24 12/08/24 Ultra Test strips) blood-glucose meter ([facility] 03/29/24 12/08/24 Ultra2 Meter) blood-glucose sensor ([employer] 03/29/24 12/08/24 Hunter 3 Plus Sensor device) fentanyl 25 mcg/hr transdermal 1 patch transdermal Q72H 03/29/24 12/08/24 patch hydrocodone 5 mg-acetaminophen 325 1 tab PO Q6H PRN pain 03/29/24 12/08/24 mg tablet lancets 30 gauge (OneTouch Delica 03/29/24 12/08/24 Plus Lancet) pen needle, diabetic 32 gauge x 03/29/24 12/08/24 (BD Stefania 2nd Gen Pen Needle) prucalopride 2 mg tablet 2 mg PO DAILY 03/29/24 12/08/24 trazodone 100 mg tablet 100 mg PO .qhs 03/29/24 12/08/24 ergocalciferol (vitamin D2) 1,250 1,250 mcg PO .Q7 06/21/24 12/08/24 mcg (50,000 unit) capsule mirtazapine 45 mg tablet 45 mg PO BEDTIME 08/16/24 12/08/24 aspirin 81 mg chewable tablet 1 tab PO .qd 11/19/24 12/08/24 clopidogrel 75 mg tablet 75 mg PO .qd 11/19/24 12/08/24 colchicine 0.6 mg tablet 0.3 mg PO .qod 11/19/24 12/08/24 fentanyl 12 mcg/hr transdermal 1 patch transdermal Q72H 11/19/24 12/08/24 patch methocarbamol 500 mg tablet 750 mg PO Q6H PRN Muscle spasm 11/19/24 12/08/24 metoprolol succinate 25 mg 25 mg PO .qd 11/19/24 12/08/24 tablet,extended release 24 hr ranolazine 500 mg tablet,extended 500 mg PO Q12H 11/19/24 12/08/24 release,12 hr rosuvastatin 40 mg tablet 40 mg PO .qhs 11/19/24 12/08/24 verapamil 40 mg tablet 40 mg PO Q8H 11/19/24 12/08/24 Previous Rx's ?Medication ?Instructions ?Recorded meloxicam 7.5 mg tablet 7.5 mg PO DAILY PRN pain #3 tabs 11/30/24 nitrofurantoin 100 mg PO BID 7 days #14 caps 12/11/24 monohydrate/macrocrystals 100 mg capsule (Macrobid) Allergies Allergy/AdvReac Type Severity Reaction Status Date / Time adhesive Allergy Rash Verified 12/16/24 22:43 NSAIDS (Non-Steroidal Allergy intolerance Verified 12/16/24 22:43 Anti-Inflamma codeine AdvReac Vomiting Verified 12/16/24 22:43 Opioid HPI Opioid Management Most Recent Opioid Data: Last Pain Scale 9 Today, 02:58 Last ED Pain Assessment 12/16/24, 23:40 Last MAR Pain Assessment Today, 02:58 Last ORT Total Score 1 11/19/24, 15:40 Last ORT Risk Category Low Risk 11/19/24, 15:40 Ur Phencyclidine Scrn, (NEGATIVE) Negative 08/28/24, 14:10 Review of Systems ROS Narrative A ten point review of systems is negative except as noted above. [facility] Medical History (Updated 12/17/24 @ 02:50 by Reji Damon MD) Coronary artery dissection ?I25.42 - Coronary artery dissection (ICD-10) Hypoglycemia ?E16.2 - Hypoglycemia, unspecified (ICD-10) Gastroenteritis ?K52.9 - Noninfective gastroenteritis and colitis, unspecified (ICD-10) Feeding by G-tube ?Z93.1 - Gastrostomy status (ICD-10) Abdominal pain ?R10.9 - Unspecified abdominal pain (ICD-10) Small bowel intussusception ?K56.1 - Intussusception (ICD-10) Nausea and vomiting ?R11.2 - Nausea with vomiting, unspecified (ICD-10) Flank pain ?R10.9 - Unspecified abdominal pain (ICD-10) Abdominal pain ?R10.9 - Unspecified abdominal pain (ICD-10) Acute abdomen ?R10.0 - Acute abdomen (ICD-10) Intractable nausea and vomiting ?R11.2 - Nausea with vomiting, unspecified (ICD-10) Intractable abdominal pain ?R10.9 - Unspecified abdominal pain (ICD-10) Depression ?F32.A - Depression, unspecified (ICD-10) Asthma ?J45.909 - Unspecified asthma, uncomplicated (ICD-10) Dyspareunia Pelvic pain ?R10.2 - Pelvic and perineal pain (ICD-10) Ovarian cyst ?N83.209 - Unspecified ovarian cyst, unspecified side (ICD-10) PONV (postoperative nausea and vomiting) ?R11.2 - Nausea with vomiting, unspecified (ICD-10) ?Z98.890 - Other specified postprocedural states (ICD-10) PCOS (polycystic ovarian syndrome) ?E28.2 - Polycystic ovarian syndrome (ICD-10) Hypothyroidism (acquired) ?E03.9 - Hypothyroidism, unspecified (ICD-10) Anxiety ?F41.9 - Anxiety disorder, unspecified (ICD-10) GERD (gastroesophageal reflux disease) ?K21.9 - Gastro-esophageal reflux disease without esophagitis (ICD-10) Sleep apnea ?G47.30 - Sleep apnea, unspecified (ICD-10) Anemia ?D64.9 - Anemia, unspecified (ICD-10) Fibromyalgia ?M79.7 - Fibromyalgia (ICD-10) Syncope (07/07/13) ?R55 - Syncope and collapse (ICD-10) Shingles ?B02.9 - Zoster without complications (ICD-10) Headache ?R51.9 - Headache, unspecified (ICD-10) Migraine ?G43.909 - Migraine, unspecified, not intractable, without status migrainosus (ICD-10) Mechanical ileus (01/31/20) ?K56.609 - Unspecified intestinal obstruction, unspecified as to partial versus complete obstruction (ICD-10) COVID-19 (~02/2020) ?U07.1 - COVID-19 (ICD-10) Kidney stones ?N20.0 - Calculus of kidney (ICD-10) Surgical History S/P percutaneous endoscopic gastrostomy (PEG) tube placement ?Z93.1 - Gastrostomy status (ICD-10) 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 - Celiac artery compression syndrome (ICD-10) H/O shoulder surgery (2022) ?Z98.890 - Other specified postprocedural states (ICD-10) History of hip surgery ?Z98.890 - Other specified postprocedural states (ICD-10) S/P right knee arthroscopy ?Z98.890 - Other specified postprocedural states (ICD-10) S/P left knee arthroscopy ?Z98.890 - Other specified postprocedural states (ICD-10) Hx of tonsillectomy ?Z90.89 - Acquired absence of other organs (ICD-10) History of thoracic surgery (~2021) ?Z98.890 - Other specified postprocedural states (ICD-10) History of esophagogastroduodenoscopy (EGD) (10/04/13) ?Z98.890 - Other specified postprocedural states (ICD-10) History of cholecystectomy (10/06/13) ?Z90.49 - Acquired absence of other specified parts of digestive tract (ICD-10) Delivery by section (~2016) Delivery by section (01/17/18) H/O colonoscopy (~2018) ?Z98.890 - Other specified postprocedural states (ICD-10) S/P right knee arthroscopy (07/21/18) ?Z98.890 - Other specified postprocedural states (ICD-10) Delivery by section (06/19/19) History of appendectomy (09/25/19) ?Z90.49 - Acquired absence of other specified parts of digestive tract (ICD-10) H/O laparoscopy (11/10/19) ?Z98.890 - Other specified postprocedural states (ICD-10) History of liver biopsy (~04/2020) ?Z98.890 - Other specified postprocedural states (ICD-10) H/O laparoscopy (07/18/20) ?Z98.890 - Other specified postprocedural states (ICD-10) H/O arthroscopy of right knee (08/07/20) ?Z98.890 - Other specified postprocedural states (ICD-10) S/P laparoscopic sleeve gastrectomy (09/03/20) ?Z98.84 - Bariatric surgery status (ICD-10) H/O: hysterectomy (11/12/20) ?Z90.710 - Acquired absence of both cervix and uterus (ICD-10) History of hernia repair (03/20/21) ?Z98.890 - Other specified postprocedural states (ICD-10) ?Z87.19 - Personal history of other diseases of the digestive system (ICD-10) Family History Other Family history of cancer Family history of diabetes mellitus Family history of hypertension Family history of myocardial infarction PONV (postoperative nausea and vomiting) Social History Within the past year, how often did you have a drink containing alcohol: never Score interpretation: A score less than 3 is consistent with normal alcohol consumption. Smoking status: Never smoker Non-prescribed substance use: denies use Previous occupational history: disabled Known occupational exposures/hazards details: disabled Highest level of school completed/degree received: Master's degree Are you now , , , , never or living with a partner: In a typical week, how many times do you talk on the telephone with family, friends, or neighbors: 3 or more times per week How often do you get together with friends or relatives: twice per week How often do you attend restorationism or adventism services: 4 or more times per year Do you belong to any clubs or organizations such as restorationism groups unions, fraternal or athletic groups, or school groups: no Total score: 3 Score interpretation: A score of greater than or equal to 2 indicates the lowest level of social isolation. Little interest or pleasure in doing things: not at all Feeling down, depressed, or hopeless: not at all Feel stressed/tense/nervous/anxious/difficulty sleeping: to some extent Do you think of yourself as: straight/heterosexual Gender Identity: female Exam Narrative Exam Narrative: Nurses note and vital signs reviewed General:The patient appears uncomfortable. Skin:Warm, dry, pallor noted.There is no rash noted. Head:Normocephalic, atraumatic Eye: Normal conjunctiva, no drainage Ears, Nose, Mouth, and Throat: oral mucosa is moist. Nares patent. Cardiovascular:Regular Rate and Rhythm Respiratory:Patient is in no distress, no accessory muscle use, lungs are clear to auscultation, no wheezing, rales or rhonchi Back:non-tender GI: Soft and diffusely tender. Nondistended Musculoskeletal: The patient has no evidence of calf tenderness, no pitting edema, symmetrical pulses noted bilaterally Neurological:A&O, normal speech Psychiatric:Cooperative Constitutional Vital Signs, click to edit/add: Last Vital Signs Temp 97.8 F 12/16/24 22:39 Pulse 100 H 12/17/24 02:30 Resp 23 H 12/17/24 02:30 BP 119/72 12/17/24 02:30 Pulse Ox 100 12/17/24 00:40 O2 Del Method Room Air 12/16/24 22:39 Course Vital Signs Vital signs: Vital Signs Temperature 97.8 F 12/16/24 22:39 Pulse Rate 79 12/16/24 22:39 Respiratory Rate 16 12/16/24 22:39 Blood Pressure 122/84 12/16/24 22:39 Pulse Oximetry 100 12/16/24 22:39 Oxygen Delivery Method Room Air 12/16/24 22:39 Temperature 97.8 F 12/16/24 22:39 Pulse Rate 100 H 12/17/24 02:30 Respiratory Rate 23 H 12/17/24 02:30 Blood Pressure 119/72 12/17/24 02:30 Pulse Oximetry 100 12/17/24 00:40 Oxygen Delivery Method Room Air 12/16/24 22:39 Medical Decision Making MDM Narrative Medical decision making narrative: Partial small bowel obstruction is noted on CAT scan. NG tube was ordered and she was given pain medication as well as antiemetics. She is requesting transfer to [facility]. She is stable and agreeable for transfer there. I spoke to Dr. Scott at [facility] and he accepts the patient. Differential Diagnosis Differential Diagnosis: Bowel obstruction, constipation, nonspecific abdominal pain, pancreatitis Lab Data Lab results reviewed: Yes I reviewed the patient's lab results Labs: Lab Results 12/16/24 12/17/24 Range/Units 22:50 01:18 EST WBC 9.7 (4.0-11.0) 10^3/uL RBC 4.24 (4.20-5.40) 10^6/uL Hgb 12.2 (12.0-16.0) g/dL Hct 36.9 (36.0-48.0) % MCV 87.0 (81.0-99.0) fL MCH 28.8 (26.7-34.0) pg MCHC 33.1 (29.9-35.2) g/dL RDW 15.1 H (11.0-15.0) % Plt Count 348 (150-450) 10^3/uL MPV 11.7 (9.5-13.5) fL Neut % (Auto) 65.8 (43.0-75.0) % Lymph % (Auto) 27.3 (20.5-60.0) % [place] % (Auto) 5.4 (1.7-12.0) % Eos % (Auto) 0.7 L (0.9-7.0) % Baso % (Auto) 0.5 (0.2-2.0) % Neut # (Auto) 6.4 (1.4-6.5) 10^3/uL Lymph # (Auto) 2.7 (1.2-3.8) 10^3/uL [place] # (Auto) 0.5 (0.3-0.8) 10^3/uL Eos # (Auto) 0.1 (0.0-0.7) 10^3/uL Baso # (Auto) 0.1 (0.0-0.1) 10^3/uL Abs Immat Gran (auto) 0.03 (0.00-0.03) 10^3/uL Imm/Tot Granulo (auto) 0.3 (0.0-0.5) % Total Bilirubin 0.3 (0.2-1.0) mg/dL Direct Bilirubin 0.1 (0.0-0.2) mg/dL AST 43 H (15-37) U/L ALT 30 (14-59) U/L Alkaline Phosphatase 86 (46-116) U/L Troponin I High Sens 4.1 5.6 (4.0-51.3) pg/mL Total Protein 7.0 (6.4-8.2) g/dL Albumin 3.8 (3.4-5.0) g/dL Globulin 3.2 g/dL Albumin/Globulin Ratio 1.2 Amylase 46 (25-115) U/L Lipase 77.0 (16.0-77.0) U/L Imaging Data CT scan - abdomen: Radiologist's impression: Partial small bowel obstruction ECG Data Attestation: I personally reviewed and interpreted this ECG as follows: (EKG on my interpretation shows sinus rhythm with rate of 84 no acute change) Discharge Plan Discharge Chief Complaint: Abdominal Pain Clinical Impression: Partial small bowel obstruction [facility] Time of Disposition Decision: 02:50 Discharge Location: [facility] Med Condition: Fair Mode of Transportation: EMS
[2024-12-16 23:53] LABS: Hematocrit 36.9 % (36.0-48.0); Hemoglobin 12.2 g/dL (12.0-16.0); Immature Granulocytes Abs Auto 0.03 10^3/uL (0.00-0.03); Immature Granulocytes Pct Auto 0.3 % (0.0-0.5); Lymphocytes Absolute Auto 2.7 10^3/uL (1.2-3.8); Mean Corpuscular HGB Conc 33.1 g/dL (29.9-35.2); Mean Corpuscular Hemoglobin 28.8 pg (26.7-34.0); Mean Corpuscular Volume 87.0 fL (81.0-99.0); Platelet Count 348 10^3/uL (150-450); Red Blood Count 4.24 10^6/uL (4.20-5.40); White Blood Count 9.7 10^3/uL (4.0-11.0)
[2024-12-17] VITALS (50 sets, daily range): BP systolic 97–129; BP diastolic 58–84; PULSE 79–133; O2SAT 94–100
[2024-12-17 00:09] LABS: Alanine Aminotransferase 30 U/L (14-59); Albumin Globulin Ratio 1.2; Albumin Level 3.8 g/dL (3.4-5.0); Alkaline Phosphatase 86 U/L (46-116); Amylase 46 U/L (25-115); Aspartate Amino Transferase 43 U/L (15-37); Globulin 3.2 g/dL; Lipase 77.0 U/L (16.0-77.0); Total Protein 7.0 g/dL (6.4-8.2)
[2024-12-17] MEDS: HYDROMORPHONE HCL 0.5 MG/0.5 ML SYRINGE IV ×2 (02:58→07:22)
--- NOTE | 2024-12-17 08:22 | PC.NURSE ---
0715 - pt called out asking for more pain and nausea meds. PRN dilaudid already ordered, and dr buenrostro put in antiemetic order
[2024-12-17] MEDS: DIPHENHYDRAMINE HCL 50 MG/ML VIAL 25 MG IVP (08:34)
== END 2024-12-17 08:46 | disposition short-term general hospital (02) ==
PROVIDERS: Emergency Provider Emergency Medicine; PCP Family Medicine
DX: K56.600 Partial intestinal obstruction, unspecified as to cause (principal); R07.9 Chest pain, unspecified; R10.9 Unspecified abdominal pain; R11.10 Vomiting, unspecified; K31.84 Gastroparesis; D50.9 Iron deficiency anemia, unspecified; R11.2 Nausea with vomiting, unspecified; K90.9 Intestinal malabsorption, unspecified
CPT/HCPCS: 36415; 51702; 71045; 71250; 74176; 80076; 81001; 82150; 83690; 84484; 85025; 93005; 96374; 96375; 96376; 99285; J0780; J1171; J1200; J2405

== ENCOUNTER 2024-12-27 10:30 | Emergency (ER) | payer MEDICAID, SELFPAY ==
--- OUTSIDE RECORDS SUMMARY | 2024-12-14 06:17 | XMS_ITS | Encounter Summary ---
Author Organization [facility] Address [address] [place] [address] Care Team Providers Care Registration Officer Name Role Phone Thomas Alas MD Primary Care Provider [phone] Reason for Referral * Hospital - Outpatient (Routine) - AuthorizedSpecialtyDiagnoses / Procedures Referred By ContactReferred To ContactGastroenterology Diagnoses Common bile duct dilatation Procedures EUS (Upper) w/ EGD Intervention(s): EUS w/ FNA Arabella Patel CNP [address] [place] [address] [place] [address] Phone: tel: fax: [facility] [address] [place] [address] Phone: tel: fax: Referral IDStatusReasonStart DateExpiration DateVisits RequestedVisits [id number]/17/202510/17/202611 Reason for Visit * Hospital - Outpatient (Routine) - AuthorizedSpecialtyDiagnoses / Procedures Referred By ContactReferred To ContactGastroenterology Diagnoses Common bile duct dilatation Procedures EUS (Upper) w/ EGD Intervention(s): EUS w/ FNA Arabella Patel CNP [address] [place] [address] [place] [address] Phone: tel: fax: [facility] [address] [place] [address] Phone: tel: fax: Referral IDStatusReasonStart DateExpiration DateVisits RequestedVisits [id number]/17/202510/17/202611 Encounter Details DateTypeDepartmentCare Team (Latest Contact Info)Bypusinqiyr94/30/2025 7:17 AM EDT - 12/14/2024 9:35 AM EDTHospital Encounter [facility] [address] [place] [address] Braxton Bellamy MD [address] [facility] Akhil [address] [facility] [place] [address] Olga Abdullahi CAA [address] [place] [address] Sergei Randall MD [address] [place] [address] Common bile duct dilatation; Chronic narcotic use Discharge Disposition: Home or Self Care () Social History Tobacco UseTypesPacks/DayYears UsedDateSmoking Tobacco: NeverSmokeless Tobacco: NeverAlcohol UseStandard Drinks/WeekCommentsNot Currently0 (1 standard drink = 0.6 oz pure alcohol)[facility] UtilitiesAnswerDate RecordedIn the past 12 months has the [employer], [employer], oil, or water Insurance [employer] threatened to shut off services in your [...] 11/15/2024CommentsNoSex and Gender InformationValueDate RecordedSex Assigned at JiwnnNsngiv19/03/2025 3:45 PM EDTLegal EoaUowuza98/30/2022 12:07 AM EDTGender OlcuvkrcIczkad54/03/2025 3:45 PM EDTSexual OrientationHeterosexual or Ttfxiwiw75/03/2025 3:45 PM EDTdocumented as of this encounter Last Filed Vital Signs Vital SignReadingTime TakenCommentsBlood Tgnbefon79/7612/14/2024 7:47 AM EDT patient states this is normal for osyMqexp4434/30/2025 7:47 AM NERTbwkdocmndg41 ??C (96.8 ??F)12/14/2024 7:47 AM EDTRespiratory Yqxs7604 7:47 AM EDT Oxygen Daowexutdo50%12/14/2024 7:47 AM EDTInhaled Oxygen Concentration--Weight 80.4 kg (177 lb 4 oz)12/14/2024 7:36 AM UZPEbtibz347.6 cm (5' 6 )12/14/2024 7:36 AM EDTBody Mass Index28.6112/14/2024 7:36 AM EDTdocumented in this encounter Functional Status * QuestionAnswerDate of LqlyzcznhoFtmbmjVM64/7612/14/2024 7:47 AM Mayda Ortiz RNPulse6612/14/2024 7:47 AM Mayda Ortiz RN * Pain Assessment TimerQuestionAnswerDate of AssessmentAuthorRestart Pain Assessment NnoubMqb57/30/2025 7:50 AM Mayda Ortiz RN * Pain AssessmentQuestionAnswerDate of AssessmentAuthorPain LocationAbdomen 12/14/2024 7:50 AM Mayda Ortiz RNPain AlsuxonqlwvWeq24/30/2025 7:50 AM Mayda Ortiz RNPain TypeAcute pain;Chronic pain12/14/2024 7:50 AM Mayda Ortiz RNPain Qeonh308 7:50 AM Mayda Ortiz RNPain Assessment0-101 7:50 AM Mayda Ortiz RN * Head, Ears, Eyes, Nose, and Throat (HEENT)QuestionAnswerDate of Assessment AuthorHead, Ears, Eyes, Nose, and Throat (WDL)WDL1 7:50 AM Mayda Dawson RN * QuestionAnswerDate of RvjdcvjnrxKyupecUP77/7612/14/2024 7:47 AM Mayda Ortiz RNTemp96.81 7:47 AM Mayda Ortiz RNPulse66 12/14/2024 7:47 AM Mayda Ortiz RNResp181 7:47 AM Mayda Dawson RNSpO29812/14/2024 7:47 AM Mayda Ortiz RN * GastrointestinalQuestionAnswerDate of AssessmentAuthorGastrointestinal (WDL)X 12/14/2024 7:50 AM Mayda Ortiz RNAbdomen Inspection Soft;Unqskxxwfmvl96/30/2025 7:50 AM Mayda Ortiz RN * Peripheral VascularQuestionAnswerDate of AssessmentAuthorPeripheral Vascular (WDL)WDL1 7:50 AM Mayda Ortiz RN * MusculoskeletalQuestionAnswerDate of AssessmentAuthorMusculoskeletal (WDL)WDL 12/14/2024 7:50 AM Mayda Ortiz RN * PsychosocialQuestionAnswerDate of AssessmentAuthorPsychosocial (WDL)WDL 12/14/2024 7:50 AM Mayda Ortiz RN * CardiacQuestionAnswerDate of AssessmentAuthorCardiac RegularityRegular 12/14/2024 7:50 AM Mayda Ortiz RNCardiac (WDL)X1 7:50 AM Mayda Ortiz RNJugular Venous Distention (JVD)No12/14/2024 7:50 AM Mayda Ortiz RNCarpoac CsdlnhtxAodk74/30/2025 7:50 AM Mayda Dawson RNHeart SoundsS1, S212/14/2024 7:50 AM Mayda Ortiz RN * RespiratoryQuestionAnswerDate of AssessmentAuthorRespiratory (WDL)WDL 12/14/2024 7:50 AM Mayda Ortiz RN * GenitourinaryQuestionAnswerDate of AssessmentAuthorGenitourinary (WDL)WDL 12/14/2024 7:50 AM Mayda Ortiz RN * NeurologicalQuestionAnswerDate of AssessmentAuthorLevel of ConsciousnessAlert 12/14/2024 7:50 AM Mayda Ortiz RNOrientation LevelOriented X4 12/14/2024 7:50 AM Mayda Ortiz RNCognitionAppropriate judgement;Follows dajjlrjp30/30/2025 7:50 AM Mayda Ortiz RNSpeech Clear12/14/2024 7:50 AM Mayda Ortiz RNNeuro (WDL)X1 7:50 AM Mayda Ortiz RNR Hand SvmjjYwbjbq19/30/2025 7:50 AM Mayda Dawson RNL Hand TbuuqMlhnmz97/30/2025 7:50 AM Mayda Ortiz RNR Foot BjaciilpqwcoJjbuye52/30/2025 7:50 AM Mayda Ortiz RNL Foot ZvsmucxlnqatHtjbvw73/30/2025 7:50 AM Mayda Ortiz RNNeuro FhcmjajmJiwm09/30/2025 7:50 AM Mayda Ortiz RN Hand Grasp/Motor Function/Sensation AssessmentGrasp;Legmwrajszqj43/30/2025 7:50 AM Mayda Ortiz, RNFacial QelxlqayKawfgnxamiz52/30/2025 7:50 AM Mayda Ortiz RN * QuestionAnswerDate of ZazdvbbaarAbtkkqEXNG98438/30/2025 9:35 AM EDTInterface, Device In * Pain AssessmentQuestionAnswerDate of AssessmentAuthorPain LocationAbdomen 12/14/2024 7:50 AM Mayda Ortiz RNPain NqlfejfhghtFes94/30/2025 7:50 AM Mayda Ortiz RNPain TypeAcute pain;Chronic pain12/14/2024 7:50 AM Mayda Ortiz RNPain Rlgmn952 7:50 AM Mayda Ortiz RNPain Assessment0-101 7:50 AM Mayda Ortiz RN * IntegumentaryQuestionAnswerDate of AssessmentAuthorIntegumentary (WDL)WDL 12/14/2024 7:50 AM Mayda Ortiz RN * [place] Suicide Severity Rating ScaleQuestionAnswerDate of AssessmentAuthor1. Have you wished you were or wished you could go to sleep and not wake up? No12/14/2024 7:41 AM Mayda Ortiz RN2. Have you actually had any thoughts of killing yourself?No12/14/2024 7:41 AM Mayda Ortiz RN 6. Have you ever done anything, started to do anything, or prepared to do anything to end your life?No12/14/2024 7:41 AM Mayda Ortiz RN * Risk of SuicideAnswerDate of AssessmentAuthorNo Risk12/14/2024 7:41 AM EDT Mayda Gray RN documented as of this encounter Discharge Instructions * Discharge Instructions* Aisha Louise RN - 12/14/2024 10:42 AM EDT Repeat EGD pending pathology. Call [phone] in 7-10 days for results of biopsies. Resume Plavix tomorrow, all other home medications can be resumed today. Resume previous diet. * Attachments The following attachments cannot be sent through Care Everywhere. * Monitored Anesthesia Care Care After (Ethiopian) * Endoscopic Mucosal Resection Care After (Ethiopian) * Endoscopic Ultrasound (Ethiopian) documented in this encounter Medications at Time [...] with breakfast for 120 doses. 30 tablet 5003/03/2025 clopidogrel (Plavix) 75 mg tablet Indications:Spontaneous dissection of coronary arteryTake 1 tablet (75 mg) by mouth in the morning for 120 doses. 30 tablet escitalopram (Lexapro) 20 mg tablet Take 20 mg by mouth in the morning. fentaNYL (Duragesic) 12 mcg/hr Place 1 patch on the skin every 3rd (third) day. Give with 25 mcg patch fentaNYL (Duragesic) 25 mcg/hr Place 1 patch on the skin every 3rd (third) day. HYDROcodone-acetaminophen ([place]) 5-325 mg tablet Take 2 tablets by [...] by mouth in the morning. methocarbamol (Robaxin) 750 mg tablet Take 750 mg by mouth three times daily. metoclopramide (Reglan) 10 mg tablet Indications:GastroparesisTake 1 tablet (10 mg) by mouth if needed in the morning and at bedtime (nausea and vomiting). 60 tablet 11/02/2024 metoprolol succinate XL (Toprol-XL) 25 mg 24 hr tablet Indications:HematomaTake 1 tablet (25 mg) by mouth in the morning for 92 doses. Do not crush or chew. Do not start before November 08, 2024. 30 tablet / mirtazapine (Remeron) 45 mg tablet Take 45 [...] not crush, chew, or split. 60 tablet rosuvastatin (Crestor) 40 mg tablet Indications:HematomaTake 1 [...] (eight) hours for 287 doses. 90 tablet / colchicine 0.6 mg tablet Indications:Chest painTake 0.5 tablets (0.3 mg) by mouth every other day. Do not start before November 14, 2024. 8 tablet naloxone (Narcan) 0.4 mg/mL injection Indications:Chronic narcotic useInfuse 1 mL (0.4 mg) into a venous catheter if needed for opioid reversal. 1 mL documented as of this encounter H&P Notes * Braxton Bellamy MD - 12/14/2024 9:00 AM EDT H&P reviewed. The patient was examined and there are no changes to the H&P. CBD dilation with an MRCP that was performed on November 16, 2024 demonstrated possible CBD filling defect. The patient is status post cholecystectomy. The patient had a previous history of dysphagia, she is status post EGD with CRE balloon dilation up to 20 mm at [facility] that was performed in September 2024. The patient is scheduled to have an upper endoscopy with endoscopic ultrasound for the history of right upper quadrant abdominal pain. Source Note - Arabella Patel CNP - 11/17/2024 10:06 AM EDT Gastroenterology/Hepatology Progress Note IDENTIFYING DATA PATIENT: Abbey Garcia ADMIT DATE: 11/15/2024 TIME OF EVALUATION: 11/17/2024 10:06 AM Reason for Consult: CBD dilation and appearance of complex inflammatory changes Admitting Physician: Sandeep Casey MD SUBJECTIVE/INTERVAL HISTORY Abbey Garcia's overnight events were reviewed. Patient seen and [...] Units 11/17/24 0517 11/16/24 0536 11/13/24 0703 WBC AUTO 10*3/uL 2.92* 3.15* 3.34* [...] days Lab Units 11/17/24 0517 11/16/24 0536 BILIRUBIN TOTAL mg/dL 0.3 0.3 BILIRUBIN DIRECT mg/dL 0.0 0.1 ALK PHOS U/L 46 47 AST U/L 20 21 ALT U/L 11 9 ALBUMIN g/dL 3.2* 3.2* TOTAL PROTEIN g/dL 5.2* 5.3* B12/Folate/Iron studies: No results found for: AKTWLAJR50 , FOLATE , IRON , TIBC , UIBC , IRONSAT , FERRITIN Viral Hepatitis No results found for: HEPAIGM , HAV , HEPBSAG , HEPBSAB , HEPBEAB , HEPBIGM , HEPBCAB , HEPBCOREAB , HBVNAT , HCVSCR , HEPCAB , HCVNAT , HCVPCR , HCVTMA Liver workup No results found for: MISAEL , SMOOTHMUSCAB , CERULOPLSM , W9RAOSLIMIG , TTGA , IGA , TSH , [...] mesenteric adenopathy or mass. ASSESSMENT AND PLAN Abbey Garcia is a 34 y.o. female who transferred to [facility] for chest pain. CT done at OSH [...] balloon dilation up to 20 mm at [facility] in September 2024 History of [...] am to 4 pm weekdays in house: [phone] 4 pm to 6 am or weekends: Please contact the welder machine operator to page the fellow resolute professional documented in this encounter Nursing Notes * Aisha Louise RN - 12/14/2024 10:55 AM EDT Discontinued IV fluids from right chest port, line flushed and alcohol cap placed. * Guanaco Abraham RN - 12/14/2024 9:53 AM EDT 1Jar collected labled and verified by Mary Ann and placed in speciman container. * Guanaco Abraham RN - 12/14/2024 9:51 AM EDT Radial Ballon is off scope and disgarded * Guanaco Abraham RN - 12/14/2024 9:41 AM EDT EGD scope out * Guanaco Abraham RN - 12/14/2024 9:37 AM EDT Gastro scope in EGD. documented in this encounter Miscellaneous Notes * Anesthesia Transport Note - ORLANDO Restrepo - 12/14/2024 9:00 AM EDT Patient: Abbey Garcia Procedure Summary Date: 12/14/24 Room / Location: [facility] Endoscopy Anesthesia Start: 917 Anesthesia Stop: 1003 Procedures: EUS (UPPER) W/ EGD ENDOSCOPIC RETROGRADE CHOLANGIOPANCREATOGRAPHY Diagnosis: Common bile duct dilatation Scheduled Providers: Braxton Bellamy MD; ORLANDO Restrepo; Sergei Randall MD Responsible Provider: Sergei Randall MD Anesthesia Type: general ASA Status: 3 Anesthesia Post [facility] Patient Monitor: direct observation Transport: uneventful Patient condition is: stable Comments: Patient arousable, VSS, SV well, report to RN documented in this encounter Plan of Treatment DateTypeDepartmentCare Team (Latest Contact Info)Jjldxtbmncy57/13/2025 3:00 PM ESTOffice Visit [facility] [address] [place] [address] Donnie Cesar MD [address] [place] [phone] 01/31/2025 11:00 AM ESTOffice Visit [facility] [address] [place] [address] Wali Collins MD [address] [place] [phone] documented as of this encounter Procedures Procedure NamePriorityDate/TimeAssociated DiagnosisCommentsEUS (UPPER) W/ EGD Mkkluvh9712/14/2024 9:59 AM EDT Common bile duct dilatation HISTOLOGY - TISSUE QVFAKipgdhp96/30/2025 9:49 AM EDT Common bile duct dilatation POCT GLUCOSE METER UNSOLICITED VVTDLPMYhfpodc88/30/2025 7:47 AM EDT HEPATIC FUNCTION QHXSCStbrnty14/30/2025 7:40 AM EDT documented in this encounter Results * EUS (Upper) w/ EGD Intervention(s): EUS w/ FNA (12/14/2024 9:59 AM EDT) Anatomical RegionLateralityModalityEndoscopySpecimen (Source)Anatomical Location / LateralityCollection Method / VolumeCollection TimeReceived Time Narrative 12/14/2024 12:39 PM EDT Esophagogastroduodenoscopy (EGD) & Endoscopic Ultrasound Procedure Note Procedure: ??EGD with endoscopic ultrasound and biopsy Indications: ??CBD dilation with an MRCP that was performed on November 16, 2024 demonstrated possible CBD filling defect. ??The patient is status post cholecystectomy. ??The patient had a previous history of dysphagia, she is status post EGD with CRE balloon dilation up to 20 mm at [facility] that was performed in September 2024. ??The patient is scheduled to have an upper endoscopy with endoscopic ultrasound for the history of right upper quadrant abdominal pain. Sedation: MAC sedation Attending Physician: ??Braxton Bellamy MD Procedure Details: Informed consent was obtained for the procedure, including sedation. Risks of infection, perforation, hemorrhage, adverse drug reaction, and aspiration were discussed. The patient was placed in the left lateral decubitus position. The patient was monitored continuously with ECG tracing, pulse oximetry, blood pressure monitoring, and direct observation. ?? The gastroscope was inserted into the mouth and advanced under direct vision to jejunum. ??A careful inspection was made as the gastroscope was withdrawn, including a retroflexed view of the proximal stomach; findings and interventions are described below. ??The Olympus video radial echoendoscope was then introduced through the mouth down to the esophagus, stomach and into the first and second part of the duodenum with no difficulties. ??After completing the endosonographic examination the scope was then withdrawn. Findings: The GE junction was noted at 40 cm from the incisors. The examination of the gastric pouch revealed diffuse hyperemia. Biopsies were obtained. The endosonographic examination of the abdominal aorta and the celiac axis was unremarkable. The examination of the pancreatic parenchyma at the body of the tail of the pancreas was unremarkable. The pancreatic duct measured 1.7 mm and 1.4 mm at the body and the tail of the pancreas, respectively.the pancreatic head and the common bile duct could not be examined due to previous history of gastric bypass surgery. ??The radial echoendoscope was then withdrawn and the patient tolerated the procedure well and was sent to the recovery room in stable condition. Complications: ??None ? Estimated blood loss: Minimal Disposition: Home ? Condition: stable Impression: ?? Unremarkable examination of the esophagus. Diffuse hyperemia of the gastric pouch. ??Biopsies were obtained. Unremarkable examination of the gastrojejunal anastomosis site and the jejunum. Unremarkable endosonographic examination of the pancreatic body and tail. ?? The pancreatic head and the distal common bile duct could not be visualized due to the history of gastric bypass surgery. Recommendations: Follow-up histopathology results. Further plan depends upon the histopathology results. Consider repeating MRCP to have a better visualization of the common bile to rule out choledocholithiasis prior to considering performing lap assisted ERCP for CBD stone removal. Attending Attestation: I performed the procedure. Authorizing ProviderResult TypeResult Teresa Patel CNPENDOSCOPY PROCEDURE ORDERABLESFinal Result * Histology - tissue exam (12/14/2024 9:49 AM EDT)ComponentValueRef RangeTest MethodAnalysis TimePerformed AtPathologist SignatureCase ReportSurgical Pathology ?Case: [id number] ? Authorizing Provider: ??Braxton Bellamy MD ? Collected: ? 12/14/2024 0949 ? Ordering Location: ? [facility] ? Received: ?12/15/2024 0826 ? [facility] ? Endoscopy ? Pathologist: ? Pete Bolanos MD ? Specimen: ?Gastric, gastric Bx to r/o H-Pylori ? 12/19/2024 3:29 PM [facility])Final DiagnosisStomach, biopsy: Gastric mucosa with focal erosion. No Helicobacter pylori identified, immunohistochemical stain with control. No intestinal metaplasia, dysplasia or malignancy identified.12/19/2024 3:29 PM [facility]) [facility] [address] [facility] [address] [facility] Diagnoses K83.8 - Common bile duct dilatation [ICD-10-CM] 12/19/2024 3:29 PM [facility])Gross DescriptionA. Gastric. Received in formalin labeled Abbey Garcia, Gastric BX to R/O H- pylori, handwritten: G are five renner ragged mucosal bits, 0.1 to 0.3 cm. The specimen is filtered and entirely submitted in a single cassette. Sabina Seay, Pathologists' Fhcgothtb63/04/2025 3:29 PM [facility] ([facility])Microscopic DescriptionMicroscopic examination performed.12/19/2024 3:29 PM [facility] ([facility])DisclaimerThe interpretation of this case included the use of immunohistochemistry or special stains. These tests have not been cleared or approved by the U.S. Food and Drug Administration. The FDA has determined that such clearance or approval is not necessary. These tests are used for clinical purposes andshould not be regarded as investigational or for research. This laboratory is certified to perform high complexity testing under the Clinical Laboratory Improvement Amendments of 1997.12/19/2024 3:29 PM [facility] ([facility])Specimen (Source)Anatomical Location / Laterality Collection Method / VolumeCollection TimeReceived TimeBiopsy (Gastric)12/14/2024 9:49 AM EDT1 8:26 AM EDT Narrative Authorizing ProviderResult TypeResult StatusAli Mia ROBLERO PATHOLOGY ORDERABLESFinal ResultPerforming OrganizationAddressCity/State/ZIP CodePhone Number [facility] ([facility]) [address] [place] [address] * POCT glucose meter (12/14/2024 7:47 AM EDT)ComponentValueRef RangeTest Method Analysis TimePerformed AtPathologist SignatureGlucose FXD7748 - 105 mg/dL 12/14/2024 7:57 AM EDT[facility])Comment:ajorlkz0Hedkkoed (Source)Anatomical Location / LateralityCollection Method / VolumeCollection TimeReceived TimeBloodCapillary blood specimen / Vjqronc2012/14/2024 7:47 AM EDT 12/14/2024 7:57 AM EDT Narrative [facility] ([facility]) - 12/14/2024 7:57 AM EDT Waived Testing in the ED is performed under the ED CLIA certificate #[id number]. Authorizing ProviderResult TypeResult StatusBraxton ROBLERO BLOOD ORDERABLES Final ResultPerforming OrganizationAddressCity/State/ZIP CodePhone Number [facility]) [address] [place] [address] * Hepatic function panel (12/14/2024 7:40 AM EDT)ComponentValueRef RangeTest MethodAnalysis TimePerformed AtPathologist SignatureTotal Bilirubin0.30.3 - 1.0 mg/dL12/14/2024 8:26 AM [facility] ([facility])Bilirubin, Direct0.10 - 0.2 mg/dL12/14/2024 8:26 AM [facility] ([facility])Alkaline Iopbsbsasxl3282 - 104 U/L1 8:26 AM [facility] ([facility])AST25 13 - 39 U/L1 8:26 AM [facility] ([facility])ALT (SGPT)147 - 52 U/L1 8:26 AM [facility] ([facility])Total Protein6.26.0 - 8.3 g/dL12/14/2024 8:26 AM [facility] ([facility])Albumin3.83.5 - 5.7 g/dL 12/14/2024 8:26 AM [facility] ([facility])Specimen (Source)Anatomical Location / LateralityCollection Method / VolumeCollection TimeReceived Time BloodVenous blood specimen / UnknownExisting Catheter / Jhrtobh9312/14/2024 7:40 AM EDT1 7:49 AM EDT Narrative Authorizing ProviderResult TypeResult StatusKarmen ROBLERO BLOOD ORDERABLESFinal ResultPerforming OrganizationAddressCity/State/ZIP CodePhone Number [facility] ([facility]) [address] [place] [address] documented in this encounter Visit Diagnoses Diagnosis Common bile duct dilatation Other specified disorders of biliary tract Chronic narcotic use documented in this encounter Administered Medications Medication OrderMAR ActionAction DateDoseRateSite aprepitant (Emend) capsule 40 mg 40 mg, oral, Daily, First dose on Heena 12/14/24 at 1000, For 99 days Given12/14/2024 8:11 AM EDT40 mg diphenhydrAMINE (BENADryl) injection 25 mg 25 mg, intravenous, Once, On Heena 12/14/24 at 1030, For 1 dose Given12/14/2024 10:27 AM EDT25 mg prochlorperazine (Compazine) injection 5 mg 5 mg, intravenous, Once, On Heena 12/14/24 at 1030, For 1 dose, Recovery (only), For IVP: give each 5mg or less over 1 minute. Given12/14/2024 10:27 AM EDT5 mg scopolamine (Transderm-Scop) patch 1 patch 1 patch, transdermal, Administer over 72 Hours, Once, On Heena 12/14/24 at 0815, For 1 dose, Apply tohairless area of skin behind the ear. Medication Cmpeuur1612/14/2024 8:11 AM EDT1 patchBehind Right Eardocumented in this encounter Care Teams Team MemberRelationshipSpecialtyStart DateEnd Thomas Alas MD [address] [facility] [place] [address] PCP - GeneralFamily Medicine08/17/24documented as of this encounter
--- OUTSIDE RECORDS SUMMARY | 2024-12-14 08:18 | XMS_ITS | Encounter Summary ---
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 Name Role Phone Thomas Alas MD Primary Care Provider [phone] Encounter Details DateTypeDepartmentCare Team (Latest Contact Info)Gyylhpkpbsr40/30/2025 9:18 AM EDTAnesthesia Event [facility] [address] [place] [address] Sergei Randall MD [address] [place] [phone] Raulito Cancino MD [address] [place] [address] [id number] Anesthesia Record Procedure NameResponsible AnesthesiologistAnesthesia Start TimeAnesthesia Stop TimeEUS (UPPER) W/ Miguel Randall MD12/14/24 [id number] 1004DateTimeEvent Sfzgcrk73/30/[id number] Wppla6700Ut Start Dfsb7946Fp InductionThe patient was reevaluated immediately before moderate or deep sedation use and before anesthesia induction.0925An Evypfltpqw6142Mgyrkqqbqi Gpyhv2236Xshj OutTime out completed (confirmed patient ID, surgeon, procedure, and operative site).0959An Uqhkzxcnkr6417ps stop cxrb7651Egckhia to ReceivingI completed my handoff to the receiving clinician during which we: 1. Identified the patient 2. Identified the responsible provider 3. Reviewed the pertinent medical history 4. Discussed the surgicalcourse 5. Reviewed intra-op anesthesia management and issues during anesthesia 6. Set expectations for post-procedure period 7. Allowed opportunity for questions and acknowledgement of understanding.1004An Stop* NameTotal midazolam (Versed) 1mg/mL injection2 mgfentaNYL (SUBLIMAZE) huccidjcr516 mcg lidocaine (Xylocaine) 20 mg/ml injection 2 %60 mgpropofol 10 mg/mL160 mg succinylcholine 20 mg/mL120 mgdexAMETHasone (Decadron) 4 MG/ML injection6 mg ondansetron 2 mg/mL4 mglactated Ringer's yqfacrhr867.17 mL * Agents Name O2 N2O Air Desflurane Inspired Desflurane N2O Inspired N2O Inspired O2 Setting * Blood No blood administrations on file. TypeDetailsPlacementRemovalOpen Wound (Any Pressure Injuries included)11/02/24; 908; Surgical; Groin; Anterior, Proximal, Right, Upper; hematoma (x2 small access sites noted to area)11/02/24 09 by Roge Spence Wound (Any Pressure Injuries included)11/16/24; 0800; Y; Abdomen; Left, Lower; old j tube site11/16/24 08 by Analilia Heckle Lumen Implantable Port10/16/24; 2112; Yes; Right; Chest; 12/18/24 (error in charting pt does not have a port pt has a chappell); 12/18/2508/01/25 211 by Justine Kumar RN12/18/24 0000 by Adriano Cowan RNETTPlacement Date: 12/14/24; Placement Time: 924 (created via procedure documentation); Mask Ventilation: 1; Technique: Video laryngoscopy; Type: ETT - single; Single Lumen Tube Size: 7.5 mm; Cuffed: Yes; Blade Size: 3; Location: Oral; Grade View: Grade I; Insertion Attempts: 1; Placement Verification: Auscultation, Capnometry; Airway Comments: Hard bite block placed; Removal Date: 12/14/24; Removal Time: 924 by ORLANDO Restrepo 12/14/24958 by Olga Bradly, CAAdocumented in this encounter Social History Tobacco UseTypesPacks/DayYears UsedDateSmoking Tobacco: NeverSmokeless Tobacco: NeverAlcohol UseStandard Drinks/WeekCommentsNot Currently0 (1 standard drink = 0.6 oz pure alcohol)[facility] UtilitiesAnswerDate RecordedIn the past [...] 11/15/2024CommentsNoSex and Gender InformationValueDate RecordedSex Assigned at RgjzoQkyqud62/03/2025 3:45 PM EDTLegal YjeWopuse95/30/2022 12:07 AM EDTGender GemxssroKqdunq62/03/2025 3:45 PM EDTSexual OrientationHeterosexual or Xkghwcaw48/03/2025 3:45 PM EDTdocumented as of this encounter Functional Status * QuestionAnswerDate of NkedvztaclNpqydqJW487/7012/14/2024 10:30 AM EDAisha Munoz RNPulse7312/14/2024 10:30 AM Aisha Hebert RNHeart Rate DdpgpuIpvrfkr35/30/2025 10:30 AM Aisha Hebert RNPatient Position Lying12/14/2024 10:30 AM Aisha Hebert RN * Pain Assessment TimerQuestionAnswerDate of AssessmentAuthorRestart Pain Assessment EpiqzRvt79/30/2025 10:30 AM Aisha Hebert RN * Pain AssessmentQuestionAnswerDate of AssessmentAuthorPain LocationAbdomen 12/14/2024 7:50 AM Mayda Ortiz RNPain UeacebdtpqwDpk63/30/2025 7:50 AM Mayda Ortiz RNWong-Baker FACES Pain Wjkbak375/30/2025 10:01 AM Aisha Hebert RNRamsay Scale (RS): Jlelc342 10:30 AM Aisha Hebert RNPain TypeAcute pain;Chronic pain12/14/2024 7:50 AM Mayda Dawson RNPain Focsx425 7:50 AM Mayda Ortiz RNPain AssessmentNo/denies pain12/14/2024 10:30 AM Aisha Hebert RN * Head, Ears, Eyes, Nose, and Throat (HEENT)QuestionAnswerDate of Assessment AuthorHead, Ears, Eyes, Nose, and Throat (WDL)WDL1 10:30 AM Aisha Hernandez RN * QuestionAnswerDate of AssessmentAuthorHead of Bed ElevatedHOB 301 10:30 AM EDTWagenhauser, Aisha, RN * Vital SignsQuestionAnswerDate of AiulptfmcuSvxdazAB049/7012/14/2024 10:30 AM Aisha Hebert, RRRgmi59.310 10:30 AM Aisha Hebert, RN Temp zchZaggmmwp15/30/2025 10:30 AM Aisha Hebert, DAGkmay4703/30/2025 10:30 AM Aisha Hebert, YXIwup5455/30/2025 10:30 AM EDAisha Moreno, LAXvK509298/30/2025 10:30 AM Aisha Hebert RNHeart Rate Source Wnvmqyf1912/14/2024 10:30 AM Aisha Hebert, RNBP LocationLeft arm 12/14/2024 10:30 AM Aisha Hebert RNBP NmdwifPpevguwsc06/30/2025 10:30 AM Aisha Hebert RNPatient AhozplpnUgeic30/30/2025 10:30 AM EDT Aisha Louise, RN * QuestionAnswerDate of AssessmentAuthorLevel of BuvktesqeveskKcbmz00/30/2025 10:01 AM Aisha Hebert RNOrientation LevelOriented X41 10:01 AM Aisha Hebert, RN * QuestionAnswerDate of AssessmentAuthorCardiac FrvvxrBXK72/30/2025 10:30 AM EDT Aisha Louise RNCardiac GxfsghursqEvqondx04/30/2025 10:01 AM EDT Aisha Louise RNCardiac LfruiiajMuxd87/30/2025 10:30 AM Aisha Hebert RNHeart SoundsS1, S212/14/2024 10:01 AM Aisha Hebert, RN * GastrointestinalQuestionAnswerDate of AssessmentAuthorPassing FlatusNo 12/14/2024 10:01 AM Aisha Hebert, RNAbdominal TendernessSoft;Nontender 12/14/2024 10:01 AM Aisha Hebert RNBowel Sounds (All Quadrants) Pdwmpae3812/14/2024 10:01 AM Aisha Hebert RNGastrointestinal (WDL)WDL 12/14/2024 10:30 AM Aisha Hebert, RNAbdomen InspectionSoft;Rounded 12/14/2024 10:01 AM Aisha Hebert RNGastrointestinal SymptomsNone 12/14/2024 10:30 AM Aisha Hebert RNBowel SoundsAll quadrants 12/14/2024 10:01 AM Aisha Hebert, RN * Peripheral VascularQuestionAnswerDate of AssessmentAuthorPeripheral Vascular (WDL)WDL1 10:30 AM Aisha Hebert RN * MusculoskeletalQuestionAnswerDate of AssessmentAuthorMusculoskeletal (WDL)WDL 12/14/2024 10:30 AM Aisha Hebert RN * PsychosocialQuestionAnswerDate of AssessmentAuthorPsychosocial (WDL)WDL 12/14/2024 7:50 AM Mayda Ortiz RN * CardiacQuestionAnswerDate of AssessmentAuthorCardiac (WDL)X1 7:50 AM Mayda Ortiz RNJugular Venous Distention (JVD)No12/14/2024 7:50 AM Mayda Ortiz RN * RespiratoryQuestionAnswerDate of AssessmentAuthorRespiratory (WDL)WDL 12/14/2024 10:30 AM Aisha Hebert RN * GenitourinaryQuestionAnswerDate of AssessmentAuthorGenitourinary (WDL)WDL 12/14/2024 10:30 AM Aisha Hebert RN * NeurologicalQuestionAnswerDate of AssessmentAuthorCognitionAppropriate judgement;Follows mbmjzaqi56/30/2025 7:50 AM Mayda Ortiz RNSpeech Clear12/14/2024 7:50 AM Mayda Ortiz RNNeuro (WDL)X1 7:50 AM Mayda Ortiz RNR Hand OpfctFfecwf60/30/2025 7:50 AM Mayda Dawson RNL Hand KdeniHmsbvs24/30/2025 7:50 AM Mayda Ortiz RNR Foot IxlcctyvhkkkFivwvc78/30/2025 7:50 AM Mayda Ortiz RNL Foot TlnrclldblbvQwqmef61/30/2025 7:50 AM Mayda Ortiz RNNeuro XbgivjutGvkg79/30/2025 7:50 AM Mayda Ortiz RN Hand Grasp/Motor Function/Sensation AssessmentGrasp;Aosuzbxlhkay91/30/2025 7:50 AM Mayda Ortiz RNFacial GrxvdsmhSifrueooqzu44/30/2025 7:50 AM Mayda Ortiz RN * QuestionAnswerDate of ThsmzalagiQcdtaiPMFU3061/30/2025 10:00 AM Mariiterhailey, Device In * Pain AssessmentQuestionAnswerDate of AssessmentAuthorPain LocationAbdomen 12/14/2024 7:50 AM Mayda Ortiz RNPain ZgkfninwzouLmf93/30/2025 7:50 AM Mayda Ortiz RNWong-Walsh FACES Pain Ekdmil194/30/2025 10:01 AM Aisha Hebert RNRamsay Scale (RS): Dmscw974 10:30 AM Aisha Hebert RNPain TypeAcute pain;Chronic pain12/14/2024 7:50 AM Mayda Dawson RNPain Cunra847 7:50 AM Mayda Ortiz RNPain AssessmentNo/denies pain12/14/2024 10:30 AM Aisha Hebert RN * IntegumentaryQuestionAnswerDate of AssessmentAuthorIntegumentary (WDL)WDL 12/14/2024 7:50 AM Mayda Ortiz RN * [place] Suicide Severity Rating ScaleQuestionAnswerDate of AssessmentAuthor1. Have [...] of SuicideAnswerDate of AssessmentAuthorNo Risk12/14/2024 7:41 AM Mayda Dawson RN * Modified AldreteQuestionAnswerDate of UhiedalvcvFiljffYgpymsrs681/30/2025 10:30 AM Aisha Hebert RNRespiration21 10:30 AM Aisha Hernandez RNCirculation21 10:30 AM Aisha Hebert RN Lrgnkxbvslqhq378/30/2025 10:30 AM Aisha Hebert RNOxygen Saturation2 12/14/2024 10:30 AM Aisha Hebert RNModified Jesi Nxqop3391/30/2025 10:30 AM Aisha Hebert RN documented as of this encounter Mental Status * Modified AldreteQuestionAnswerEntry SvtnFfqdqdFpnrjpkt194/30/2025 10:30 AM Aisha Hernandez RNRespiration21 10:30 AM Aisha Hebert RN Mwroaesulqv825/30/2025 10:30 AM Aisha Hebert RNConsciousness2 12/14/2024 10:30 AM Aisha Hebert RNOxygen Jsnoxssrwv706/30/2025 10:30 AM EDTAisha Louise RNModified Jesi Tgxeo8909/30/2025 10:30 AM EDT Aisha Louise RN documented in this encounter Procedure Notes * ORLANDO Restrepo - 12/14/2024 9:32 AM EDTAssociated Order(s): Airway Airway Date/Time: 12/14/2024 9:25 AM Reason: elective Airway not difficult General Information and Staff Patient location during procedure: [place] Anesthesiologist: Sergei Randall MD Resident/CONTACT CENTER CONSULTANT/CAA: ORLANDO Restrepo Performed: resident/CONTACT CENTER CONSULTANT/ORLANDO Patient Condition Indications for airway management: anesthesia Patient position: sniffing Sedation level: deep Final Airway Details Preoxygenated: yes Final airway type: endotracheal airway Successful airway: ETT Cuffed: yes Successful intubation technique: video laryngoscopy Adjuncts used in placement: intubating stylet Endotracheal tube insertion site: oral Blade: Nettles Blade size: #3 ETT size (mm): 7.5 Cormack-Lehane Classification: grade I - full view of glottis Placement verified by: chest auscultation and capnometry Measured from: lips ETT to lips (cm): 22 Number of attempts at approach: 1 Number of other approaches attempted: 0 Additional Comments Hard bite block placed documented in this encounter Plan of Treatment DateTypeDepartmentCare Team (Latest Contact Info)Ujhtkwfcqfb16/13/2025 3:00 PM ESTOffice Visit [facility] [address] [place] [phone] Donnie Cesar MD [address] [place] [address] 01/31/2025 11:00 AM ESTOffice Visit [facility] [address] [place] [address] Wali Collins MD [address] [place] [phone] documented as of this encounter Procedures Procedure NamePriorityDate/TimeAssociated DiagnosisCommentsPR AN ELECTIVE ENDOTRACHEAL XEZQYAWbmdpml51/30/2025 9:25 AM EDT documented in this encounter Results * NE AN ELECTIVE ENDOTRACHEAL AIRWAY (12/14/2024 9:25 AM EDT) Olga Yuen CAA - 12/14/2024 9:25 AM EDT ORLANDO Restrepo 12/14/2024 9:33 AM Airway Date/Time: 12/14/2024 9:25 AM Reason: elective Airway not difficult General Information and Staff Patient location during procedure: OR Anesthesiologist: Sergei Randall MD Resident/CONTACT CENTER CONSULTANT/ORLANDO: ORLANDO Restrepo Performed: resident/CONTACT CENTER CONSULTANT/ORLANDO Patient Condition Indications for airway management: anesthesia Patient position: sniffing Sedation level: deep Final Airway Details Preoxygenated: yes Final airway type: endotracheal airway Successful airway: ETT Cuffed: yes Successful intubation technique: video laryngoscopy Adjuncts used in placement: intubating stylet Endotracheal tube insertion site: oral Blade: Nettles Blade size: #3 ETT size (mm): 7.5 Cormack-Lehane Classification: grade I - full view of glottis Placement verified by: chest auscultation and capnometry Measured from: lips ETT to lips (cm): 22 Number of attempts at approach: 1 Number of other approaches attempted: 0 Additional Comments Hard bite block placed Authorizing ProviderResult TypeResult StatusSergei Randall MDANESTHESIA ORDERABLESFinal Result documented in this encounter Visit Diagnoses * Anesthesia Postprocedure Evaluation - Sergei Randall MD - 12/14/2024 10:36 AM EDT Patient: Abbey Garcia Procedure Summary Date: 12/14/24 Room / Location: [facility] Anesthesia Start: 917 Anesthesia Stop: 1003 Procedure: EUS (UPPER) W/ EGD Diagnosis: Common bile duct dilatation Scheduled Providers: Braxton Bellamy MD; ORLANDO Restrepo; Sergei Randall MD Responsible Provider: Sergei Randall MD Anesthesia Type: general ASA Status: 3 Anesthesia Type: general Vitals Value Taken Time BP 129/70 12/14/24 10:30 Temp 36.3 ??C (97.3 ??F) 12/14/24 10:01 Pulse 73 12/14/24 10:30 Resp 15 12/14/24 10:30 SpO2 100 % 12/14/24 10:30 Anesthesia Post Evaluation Patient location during evaluation: PACU Patient participation: complete - patient participated Level of consciousness: awake Pain score: 1 Pain management: adequate Airway patency: patent Cardiovascular status: acceptable Respiratory status: acceptable Patient is hemodynamically stable and is able to be discharged from PACU per anesthesia protocol. No notable events documented. * Anesthesia Preprocedure Evaluation - Sergei Randall MD - 12/14/2024 7:50 AM EDT Patient: Abbey Garcia Procedure Information Date/Time: 12/14/24 0900 Scheduled providers: Braxton Bellamy MD; ORLANDO Restrepo; Sergei Randall MD Procedures: EUS (UPPER) W/ EGD ENDOSCOPIC RETROGRADE CHOLANGIOPANCREATOGRAPHY Location: [facility] Relevant Problems Anesthesia (+) Obstructive sleep apnea syndrome Cardio Cardiac cath 2024 Coronary Angiogram: Left main: Normal LAD: In the mid vessel there is an area of myocardial bridging followed by a discrete angiographic stenosis. The entire segment increased in diameter with IV nitroglycerin. On the delayed image thereis persistence of contrast along the lateral wall of the LAD in a linear fashion consistent with but not diagnostic for a dissection flap LCX: Normal RCA: not imaged. Was imaged one and two days prior ECHO 2024 Left Ventricle: Global left ventricular systolic function is at lower limits of normal. The calculated Biplane EF is 53 %. EF range is estimated at 50 % -55 %. Left ventricular wall thickness is normal. Regional wall motion abnormalities (see diagram). 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 Endo (+) Acquired hypothyroidism (+) Hypothyroidism (+) Type 2 diabetes mellitus without complication, without long-term current use of insulin (CMS/HCC) GI (+) GERD (gastroesophageal reflux disease) /Renal Cr 0.77 (+) Acute renal failure superimposed on chronic kidney disease (+) Calculus of kidney Neuro/Psych (+) Headache (+) Migraine Pulmonary (+) Aspiration pneumonia of left lower lobe due to vomit (CMS/HCC) (+) Asthma (+) Community acquired pneumonia of left lower lobe of lung Other (+) Arthritis of right knee (+) Osteoarthritis Clinical information reviewed: Tobacco Allergies Meds Med Hx Surg Hx Fam Hx Soc Hx Past Medical History: Diagnosis Date Adrenal insufficiency Anemia Anxiety Asthma Bipolar disorder (CMS/HCC) CHF (congestive heart failure) (CMS/HCC) Chronic pain syndrome Common bile duct dilatation Depression Diabetes mellitus (CMS/HCC) Gastroparesis GERD (gastroesophageal reflux disease) History of transfusion 11/09/2024 Hyperlipidemia Hypertension Hypoglycemia Hypothyroidism Irritable bowel syndrome Migraine Myocardial infarction (CMS/HCC) NSTEMI (non-ST elevated myocardial infarction) ([facility]/HCC) Obesity Osteoarthritis Panic disorder PCOS (polycystic ovarian syndrome) PONV (postoperative nausea and vomiting) Radiculopathy Sepsis ([facility]/HCC) Small bowel obstruction ([facility]/HCC) Physical Exam Airway Mallampati: II TM distance: >3 FB Neck ROM: full Cardiovascular - normal exam Dental - normal exam Pulmonary - normal exam Neurological Abdominal Anesthesia Plan ASA 3 general The patient is not a current smoker. Patient was not previously instructed to abstain from smoking on day of procedure. Patient did not smoke on day of procedure. intravenous induction Anesthetic plan and risks discussed with patient. Plan discussed with CAA. Additional Equipment Requests documented in this encounter Administered Medications Medication OrderMAR ActionAction DateDoseRateSite dexAMETHasone (Decadron) injection intravenous, As needed, Starting on Heena 12/14/24 at 0938, Anesthesia Intraprocedure Given12/14/2024 9:38 AM EDT6 mg fentaNYL (Sublimaze) injection intravenous, As needed, Starting on Heena 12/14/24 at 0920, Anesthesia Intraprocedure Given12/14/2024 9:22 AM EDT50 vjmZgeat54/30/2025 9:20 AM EDT50 mcg lactated Ringer's infusion 1 mL/hr, intravenous, Continuous, Starting on Heena 12/14/24 at 0745, For 99 days, Preprocedure, Indication: preop Given12/14/2024 9:34 AM LYT682 mLContinued by Vhtgfgzbyf45/30/2025 9:18 AM EDT1 mL/hr1 mL/hrNew Bag12/14/2024 8:54 AM EDT1 mL/hr1 mL/hr lidocaine HCl (Xylocaine) 20 mg/mL (2 %) injection intravenous, As needed, Starting on Heena 12/14/24 at 0922, Anesthesia Intraprocedure Given12/14/2024 9:22 AM EDT60 mg midazolam (Versed) injection intravenous, As needed, Starting on Heena 12/14/24 at 0920, Anesthesia Intraprocedure Given12/14/2024 9:20 AM EDT2 mg ondansetron (Zofran) injection intravenous, As needed, Starting on Heena 12/14/24 at 0951, Anesthesia Intraprocedure Given12/14/2024 9:51 AM EDT4 mg propofol (Diprivan) 10 mg/mL infusion intravenous, As needed, Starting on Heena 12/14/24 at 0923, Anesthesia Intraprocedure Given12/14/2024 9:23 AM OVJ528 mg succinylcholine (Anectine) injection intravenous, As needed, Starting on Heena 12/14/24 at 0923, Anesthesia Intraprocedure Given12/14/2024 9:23 AM TFE084 mgdocumented in this encounter Care Teams Team MemberRelationshipSpecialtyStart DateEnd Date Thomas Alas MD [address] [place] [address] PCP - GeneralFamily Medicine08/17/24documented as of this encounter
--- OUTSIDE RECORDS SUMMARY | 2024-12-17 10:07 | XMS_ITS | Encounter Summary ---
Author Organization [facility] Address [address] [place] [id number] Care Team Providers Care Radio Engineer Name Role Phone Thomas Alas MD Primary Care Provider [phone] Reason for Referral * (Emergency) - Pending ReviewSpecialtyDiagnoses / ProceduresReferred By Contact Referred To Contact Procedures ECG 12 lead Ck Barbour PA-C [address] [place] [phone] Phone: tel: fax: Referral IDStatusReasonStart DateExpiration DateVisits RequestedVisits [id number] [id number] Reason for Visit * Auth/Cert (Routine)SpecialtyDiagnoses / ProceduresReferred By ContactReferred To Contact Diagnoses Partial bowel obstruction (CMS/HCC) Partial Small Bowel Obstruction Procedures NO CODED SERVICE Anne Marie Scott MD [address] [place] [address] Phone: tel: fax: [facility] 6AB Ortho Surgery [address] [place] [address] Phone: tel: Referral IDStatusReasonStart DateExpiration DateVisits RequestedVisits [id number] Encounter Details DateTypeDepartmentCare Team (Latest Contact Info)Cnwbledbqwl37/03/2024 10:07 AM EST - 12/21/2024 2:02 PM ESTHospital Encounter [facility] 6AB Ortho Surgery [address] [place] [id number] Anne Marie Scott MD [address] [place] [address] Partial bowel obstruction (CMS/HCC) (Primary Dx); Partial intestinal obstruction, unspecified cause (CMS/HCC); Obstructed internal hernia; Anemia due to acute blood loss Discharge Disposition: Home-Health Care [facility] () Social History Tobacco UseTypesPacks/DayYears UsedDateSmoking Tobacco: NeverSmokeless Tobacco: NeverAlcohol UseStandard Drinks/WeekCommentsNot Currently0 (1 standard drink = 0.6 oz pure alcohol)[facility] UtilitiesAnswerDate RecordedIn the past 12 months has the [facility], gas, oil, or water Financetesetudes threatened to shut off services in your home?Yes12/17/2024Humiliation, Afraid, Rape, and Kick questionnaireAnswerDate RecordedWithin the last year, have you been afraid of your partner or ex-partner?No12/17/2024Emotionally AbusedNot on file12/17/2024Physically Abused Not on file12/17/2024Sexually AbusedNot on file12/17/2024Overall Financial Resource Strain (CARDIA)AnswerDate RecordedHow hard is it for you to pay for the very basics like food, housing, medical care, and heating?Not hard at all 12/17/2024TransportationAnswerDate RecordedIn the past 12 months, has lack of transportation kept you from medical appointments or from getting medications?No 12/17/2024Lack of Transportation (Non-Medical)Not on file12/17/2024Housing Stability Vital SignAnswerDate RecordedIn the last 12 months, was there a time when you were not able to pay the mortgage or rent on time?No12/17/2024In the past 12 months, how many times have you moved where you were living? At any time in the past 12 months, were you homeless or living in a prison (including now)?No12/17/2024Hunger Vital SignAnswerDate RecordedWithin the past 12 months, you worried that your food would run out before you got the money to buymore.Never true12/17/2024Ran Out of Food in the Last YearNot on file 12/17/2024CommentsNoSex and Gender InformationValueDate RecordedSex Assigned at SnbhuFdhpkg14/03/2025 3:45 PM EDTLegal CxoEdlggz00/30/2022 12:07 AM EDTGender MmjdccidSnrkva62/03/2025 3:45 PM EDTSexual OrientationHeterosexual or Xogkrwlc88/03/2025 3:45 PM EDTdocumented as of this encounter Last Filed Vital Signs Vital SignReadingTime TakenCommentsBlood Ryixxpsi278 7:43 AM EST Jcfrp982012/21/2024 7:43 AM FCQTcemyvnfwnd68.2 ??C (97.2 ??F)12/21/2024 3:01 AM ESTRespiratory Kmft400202/21/2024 7:43 AM ESTOxygen Cmdjfqgigx95%12/21/2024 7:43 AM ESTInhaled Oxygen Concentration--Ykqzbw54.5 kg (177 lb 7.5 oz)12/21/2024 3:01 AM YGFMrznup576.6 cm (5' 6 )12/17/2024 10:09 AM ESTBody Mass Index28.64 12/17/2024 10:09 AM ESTdocumented in this encounter Functional Status * QuestionAnswerDate of HvoqycegjxNfewucXY352/5712/21/2024 7:43 AM Tiffani [place] RNPulse6712/21/2024 7:43 AM Tiffani [place] RNHeart Rate Source Bkkzgeb4312/21/2024 7:43 AM Tiffani [place] RNPatient PositionSitting 12/21/2024 7:43 AM Tiffani [place] RN * Qureshi Fall RiskQuestionAnswerDate of AssessmentAuthorHistory of Falling, Immediate or Within 3 Sgigoi409/06/2025 7:47 AM Tiffani [place] RNSecondary Btpnzsrne629/06/2025 7:47 AM Tiffani [place] RNAmbulatory Fba019 7:47 AM Tiffani [place] RNIntravenous Therapy/Heparin Hunm5283 7:47 AM Tiffani [place] RNGait/Oxnizrsetufa134/06/2025 7:47 AM Tiffani [place] RNMental Ewyskk848/06/2025 7:47 AM Tiffani [place] RNMorse Fall Risk Score20 12/21/2024 7:47 AM Tiffani [place] RN * Cyrus ScaleQuestionAnswerDate of AssessmentAuthorBraden No Risk Interventions Continue to assess patient according to level of care12/21/2024 7:47 AM Tiffani Davis, RNSensory Amzqsdbdzjh503/06/2025 7:47 AM Tiffani [place], RN Iondolui867/06/2025 7:47 AM Tiffani [place], HBHtejzakd819/06/2025 7:47 AM Tiffani [place] RNMobility4102/21/2024 7:47 AM Tiffani [place] RNNutrition2 12/21/2024 7:47 AM Tiffani [place], RNFriction and Yddtj089 7:47 AM Tiffani [place] RNBraden Scale Vtqkf8167 7:47 AM Tiffani [place] RN * Patient's Stated Pain GoalAnswerDate of FreigkmzjkRxnrsp550/06/2025 12:26 PM Tiffani [place] RN * Epworth Fall Risk InterventionsQuestionAnswerDate of AssessmentAuthor Epworth Fall Risk XhurimjbwsnmlXemjnlnk89/06/2025 7:47 AM Tiffani [place] RN * Pain Assessment TimerQuestionAnswerDate of AssessmentAuthorRestart Pain Assessment NgfytHva01/06/2025 12:26 PM Tiffani [place] RN * Sepsis Model ScoresQuestionAnswerDate of AssessmentAuthorEarly Detection of Sepsis Score1.28102/21/2024 1:46 PM ESTChronicles, BatchqEarly Detection of Sepsis Score0.6102/21/2024 2:01 PM ESTChronicles, Batchq * Pain AssessmentQuestionAnswerDate of AssessmentAuthorPain LocationAbdomen 12/21/2024 7:47 AM Tiffani [place] RNPain OrientationLeft;Lower12/21/2024 7:47 AM Tiffani [place] RNPain InterventionsEmotional support;Food;Medication (See MAR);Relaxation technique;Rest;Repositioned 12/21/2024 7:47 AM Tiffani [place] RNPain Radiating WemhqzaZly82/06/2025 7:47 AM Tiffani [place] RNPain DescriptorsOther (Comment)12/21/2024 7:47 AM Tiffani [place] RNPain KmngcVkswnvt87/06/2025 7:47 AM Tiffani [place] RN Pain FrequencyConstant/mpbopwbtbx01/06/2025 7:47 AM Tiffani [place] RN Response to Interventionsimproved ocekbcde53/06/2025 10:32 AM Tiffani [place] RNEffect of Pain on Daily Activitiescomfort/bcygicrjc68/06/2025 7:47 AM Tiffani [place] RNPain TypeSurgical pain12/21/2024 7:47 AM Tiffani [place] RNClinical ProgressionGradually ajrrptwsw40/06/2025 7:47 AM Tiffani [place] RNPain Assessment0-10102/21/2024 7:47 AM Tiffani [place] RN * Pain ScoreAnswerDate of OilrsljaqfMemixq958/06/2025 12:26 PM Tiffani [place] RN * Audit Alcohol ScreeningQuestionAnswerDate of AssessmentAuthorTo your knowledge, has alcohol ever caused significant problems for the patient? (e.g., significantdistress to patient or those close to patient or impairment in social, occupational, or other important areas of functioning)No12/17/2024 10:13 AM Arline Lovelace RNBrief counselling was offered to the patientNo 12/17/2024 10:13 AM ESTNixon, Arline, RNReferral for addictions treatment was nehlsdyWa85/02/2025 10:13 AM Arline Lovelace RNHow often do you have a drink containing alcohol? 10:13 AM Arline Lovelace RNHow many standard drinks containing alcohol do you have on a typical day?No12/17/2024 10:13 AM Arline Lovelace RNHow often do you have six or more drinks on one occasion?0 12/17/2024 10:13 AM Arline Lovleace RNAudit-C Yiotb50802/17/2024 10:13 AM Arline Paredes RN * MEWS SCOREQuestionAnswerDate of AssessmentAuthorMEWS PTCND870 2:01 PM Delano Brown * Patient BehaviorsAnswerDate of AssessmentAuthorMoaning;Vbfolqhj23/06/2025 12:26 PM Tiffani [place] RN * Deterioration Index ScoreQuestionAnswerDate of AssessmentAuthorDeterioration Index Score17.26102/21/2024 2:01 PM Matthias Borwnq * TempAnswerDate of HbyyptyvrtPlywcc94. 3:01 AM Maryuri Byers PCT * Temp srcAnswerDate of CgaodzotrhCufxsgDtnr80/06/2025 3:01 AM Maryuri Byers PCT * Head, Ears, Eyes, Nose, and Throat (HEENT)QuestionAnswerDate of Assessment AuthorHead, Ears, Eyes, Nose, and Throat (WDL)WDL102/21/2024 7:47 AM Tiffani [place] RNR EyeMildly impaired rjvczw3812/20/2024 8:11 PM Vani Cerda RNL EyeMildly impaired lggogn1612/20/2024 8:11 PM Vani Cerda RNR EarIntact 12/18/2024 10:26 PM Amos Soares RNL WafQwpcvt93/03/2025 10:26 PM Amos Tabor RNNoseIntact12/19/2024 7:40 PM Amos Soares RNHead and PlouYywoxrvohfd66/04/2025 9:00 AM Angelica Cardenas RN * Short Portable Mental StatusQuestionAnswerDate of AssessmentAuthorWhat are the date, month, year? 7:47 AM Tiffani [place] RNWhat is the day of the week? 7:47 AM Tiffani [place] RNWhat is the name of this place? 7:47 AM Tiffani [place] RNWhat is your phone number?0 12/20/2024 8:11 PM Vani Cerda RNHow old are you? 7:47 AM Tiffani Davis RNWhen were you born? 8:11 PM Vani Cerda RNWho is the current president? 7:47 AM Tiffani [place] RNWho was the president before him? 7:47 AM Tiffani [place] RNWhat was your mother's maiden name? 8:11 PM Vani Cerda RNCan you count backward from 20 by 3s? 8:11 PM Vani Cerda RNShort Portable Mental Rnpaj05702/20/2024 8:11 PM Vani Cerda RN * Fall Risk LevelQuestionAnswerDate of AssessmentAuthorMobility zoneLow (Green Zone)12/21/2024 7:47 AM Tiffani [place] RNMorse fall risk zoneLow (Green Zone)12/21/2024 7:47 AM Tiffani [place] RNMental status questionaire zoneLow (Green Zone)12/21/2024 7:47 AM Tiffani [place] RN * Skin Assessment Sign offQuestionAnswerDate of AssessmentAuthorDual Sign-off - Admission/Cwmykucgswngyk77/03/2025 10:53 PM Amos Soares RNAny new wounds identified on admission/transfer?No12/18/2024 10:53 PM Amos Soares RN * Vital SignsQuestionAnswerDate of FsnsszxjfmGqwiaoID723/5712/21/2024 7:43 AM Tiffani [place], SHCavis8304/06/2025 7:43 AM Tiffani [place], YUVsmj10 12/21/2024 7:43 AM Tiffani [place], YRGoD10021/06/2025 7:43 AM Tiffani [place] RNHeart Rate DyhudwPmjglpg80/06/2025 7:43 AM Tiffani [place], DEEBP LocationLeft arm12/21/2024 7:43 AM Tiffani [place], DEEBP MethodAutomatic 12/21/2024 7:43 AM Tiffani [place] RNPulse rate from Plethysmogram (bpm)88 12/18/2024 9:30 PM Alyce Hedrick, RNPatient TgenyjylVdvuwij07/06/2025 7:43 AM Tiffani [place] RN * GastrointestinalQuestionAnswerDate of AssessmentAutMount [facility] Zhij99578 12/20/2024 8:11 PM ESTNjugVani dawkins, RNPassing HmmrsxJez71/06/2025 7:47 AM EST Tiffani Avitia, RNAbdominal ZjjyxckahqIhmhsicilr96/06/2025 7:47 AM Tiffani [place] RNBowel Sounds (All Quadrants)Pjjvaa0012/21/2024 7:47 AM Tiffani [place] RNStool GnxgehmpepAaie74/04/2025 9:00 AM Angelica Cardenas RN Gastrointestinal (WDL)X102/21/2024 7:47 AM Tiffani [place], RNAbdomen InspectionSoft;Rxetruuadnpp90/06/2025 7:47 AM Tiffani [place] RN Gastrointestinal UtdvnvgiHsgvuc96/05/2025 3:11 PM Tiffani [place] RNNausea Precipitating YwswqdrCqrzyocs63/06/2025 7:47 AM Tiffani [place] RNBowel NppoikogduarJh46/06/2025 7:47 AM Tiffani [place] RNBowel SoundsAll quadrants 12/21/2024 7:47 AM Tiffani [place] RN * Peripheral VascularQuestionAnswerDate of AssessmentAuthorPeripheral Vascular (WDL)WDL102/21/2024 7:47 AM Tiffani [place] RN * RUE Neurovascular AssessmentQuestionAnswerDate of AssessmentAuthorRight Radial Pulse+ 7:47 AM Tiffani [place] RN * LUE Neurovascular AssessmentQuestionAnswerDate of AssessmentAuthorLeft Radial Pulse+ 7:47 AM Tiffani [place] RN * RLE Neurovascular AssessmentQuestionAnswerDate of AssessmentAuthorRight Pedal Pulse+ 7:47 AM Tiffani [place] RN * LLE Neurovascular AssessmentQuestionAnswerDate of AssessmentAuthorLeft Pedal Pulse+ 7:47 AM Tiffani [place] RN * MusculoskeletalQuestionAnswerDate of AssessmentAuthorMusculoskeletal (WDL)WDL 12/21/2024 7:47 AM Tiffani [place] RN * PsychosocialQuestionAnswerDate of AssessmentAuthorPsychosocial (WDL)WDL 12/21/2024 7:47 AM Tiffani [place] RN * Qureshi Fall RiskQuestionAnswerDate of AssessmentAuthorHistory of Falling, Immediate or Within 3 Ccsesc570 7:47 AM Tiffani [place] RNSecondary Aojxeaxgr812/06/2025 7:47 AM Tiffani [place] RNAmbulatory Hrd668 7:47 AM Tiffani [place] RNIntravenous Therapy/Heparin Izxf2793 7:47 AM Tiffani [place] RNGait/Uoqsqlqbrafp824/06/2025 7:47 AM Tiffani [place] RNMental Grnxmz387 7:47 AM Tiffani [place] RNMorse Fall Risk Score20 12/21/2024 7:47 AM Tiffani [place] RN * Cyrus ScaleQuestionAnswerDate of AssessmentAuthorBraden No Risk Interventions Continue to assess patient according to level of care12/21/2024 7:47 AM Tiffani Davis, RNSensory Xoqfyifibxm137/06/2025 7:47 AM Tiffani [place], RN Txbqhrvo487/06/2025 7:47 AM Tiffani [place], XKXotedriy337/06/2025 7:47 AM Tiffani [place], JUBmngzytq454/06/2025 7:47 AM Tiffani [place], RNNutrition2 12/21/2024 7:47 AM Tiffani [place], RNFriction and Wndsf26702/21/2024 7:47 AM Tiffani [place] RNBraden Scale Pxqwh2906/06/2025 7:47 AM Tiffani [place], RN * MAP (mmHg)AnswerDate of CflcjlhpobQqicle3786/06/2025 3:01 AM Maryuri Byers, PCT * CardiacQuestionAnswerDate of AssessmentAuthorCardiac GfvcpbBIE37/05/2025 8:11 PM Vani Cerda RNCardiac QtqrswdiobXttyqcm32/05/2025 8:11 PM Vani Cerda RNCardiac (WDL)WDL102/21/2024 7:47 AM Tiffani [place] RNHeart SoundsS1, S212/20/2024 8:11 PM Vani Cerda RN * RespiratoryQuestionAnswerDate of AssessmentAuthorBilateral Breath SoundsClear 12/19/2024 9:00 AM Angelica Cardenas RNRespiratory XwoeihpRhpgvt52/05/2025 8:11 PM Vani Cerda RNChest AssessmentChest expansion symmetrical 12/19/2024 9:00 AM Angelica Cardenas RNRespiratory (WDL)WDL102/21/2024 7:47 AM Tiffani [place] RNRespiratory YzfwcnUpaqzynrf03/05/2025 8:11 PM Vani Cerda RNRespiratory Depth/IfzrxtGaeaxjv62/05/2025 8:11 PM Vani Cerda RN Breath SoundsBilateral breath pksgpu0512/19/2024 9:00 AM Angelica Cardenas RN * Charting TypeQuestionAnswerDate of AssessmentAuthorCharting TypeShift qdylojdrvu61/06/2025 7:47 AM Tiffani [place] RN * Patient's Stated Pain GoalAnswerDate of XusiftzdkfCaomag398/06/2025 12:26 PM Tiffani [place] RN * Values/BeliefsQuestionAnswerDate of AssessmentAuthorCultural Requests During Aairgpdfkohwvctdyvy39/02/2025 10:13 AM Arline Lovelace RNSpiritual Requests During GjcukgcmqivuyzuQqejprfr32/02/2025 10:13 AM Arline Lovelace RN * GenitourinaryQuestionAnswerDate of AssessmentAuthorGenitourinary (WDL)WDL 12/21/2024 7:47 AM Tiffani [place] RNGenitourinary IeyzlqlgXpvh99/05/2025 8:11 PM Vani Cerda RN * NeurologicalQuestionAnswerDate of AssessmentAuthorLevel of ConsciousnessAlert 12/20/2024 8:11 PM Vani Cerda RNOrientation LevelOriented X4102/20/2024 8:11 PM Vani Cerda RNCognitionAppropriate judgement;Follows commands 12/20/2024 8:11 PM Vani Cerda RNSpeechClear102/20/2024 8:11 PM Vani Acevedo RNNeuro ([facility])WDL102/21/2024 7:47 AM Tiffani [place] RN * Safe EnvironmentQuestionAnswerDate of AssessmentAuthorArm Bands OnID;Allergies 12/21/2024 7:47 AM Tiffani [place] RNSide Rails/Bed Safety2/411 7:47 AM Tiffani [place] RNBed UinpmhBzj18/06/2025 7:47 AM Tiffani [place] RNThe Patient's Environment is LxeaEmh47/06/2025 7:47 AM Tiffani [place] RN * MobilityQuestionAnswerDate of AssessmentAuthorProvider YjlqfknhYxk90/03/2025 10:31 AM Adriano Klein RNRestingbed12/21/2024 7:47 AM Tiffani [place] RN Activity PerformedAmbulated in room;Walked to ccajyjak62/03/2025 10:31 AM Adriano Drake RNAmbulation ResponseTolerated well12/18/2024 10:31 AM Adriano Drake RNRepositionedTurns self12/21/2024 7:47 AM Tiffani [place] RN Head of Bed ElevatedHOB [address]/20/2024 8:11 PM Vani Cerda RNHeels/FeetFoot of bed pcyvmhen66/05/2025 8:11 PM Vani Cerda RNRange of MotionActive;All cokhvxzcfps77/05/2025 8:11 PM Vani Cerda, LINDAnti-Embolism Devices Bilateral;Sequential compression devices, below knee12/21/2024 7:47 AM Tiffani Davis RNAnti-Embolism DekjeszbmcdaPu80/06/2025 7:47 AM Tiffani [place] RNPositioning FrequencyAble to turn self12/21/2024 7:47 AM Tiffani [place] RN * HygieneQuestionAnswerDate of AssessmentAuthorLinen changeTotal linen change 12/20/2024 7:15 AM Jose Valdovinos PCTSkin CareFoam skin cleanser 12/20/2024 7:15 AM Jose Valdovinos PCTHygienePer self12/21/2024 7:47 AM Tiffani [place] RNOral CareTeeth brushed;Per self12/20/2024 7:15 AM Jose Nam PCTLevel of AssistanceMinimal wngiot6012/20/2024 7:15 AM Jose Nam PCTIs Patient Total Care?No12/20/2024 8:11 PM Vani Cerda RNIncontinence Protective HovfpniCvhu86/05/2025 7:15 AM Jose Valdovinos PCTCHG (Chlorhexidine Gluconate) KfdmlccTanyb44/06/2025 1:07 AM Vani Acevedo RN * Comfort and Environment InterventionsQuestionAnswerDate of AssessmentAuthor ComfortPain medication;Zhrfhegnxvul16/06/2025 7:47 AM Tiffani [place] RN * ADL ScreeningQuestionAnswerDate of AssessmentAuthorDo you snore or wake up gasping for air?Yes12/17/2024 10:10 AM Arline Lovelace RNCan you bring in your CPAP/BiPAP from home?N/A102/17/2024 10:10 AM Arline Lovelace RNPatient's Vision Adequate to Safely Complete Daily YswpzobiggQxj72/02/2025 10:10 AM Arline Paredes RNPatient's Judgment Adequate to Safely Complete Daily JpzaobhecoXbh04/02/2025 10:10 AM Arline Lovelace RNPatient's Memory Adequate to Safely Complete Daily FnwlohfczjOni19/02/2025 10:10 AM Arline Lovelace RN Patient Able to Express Needs/DhyfuceLug69/02/2025 10:10 AM Arline Lovelace RNIUIptymuwbZvoigigsqul49/02/2025 10:10 AM Arline Lovelace RNGrooming Ykrlgjbiwra15/02/2025 10:10 AM Arline Lovelace NAFcvskioCzydjnrgfmr63/02/2025 10:10 AM Arline Lovelace RNAKQgphecoFrpveuhhbou73/02/2025 10:10 AM Arline Lovelace SZNvocjyjlfHxumyoagnsl75/02/2025 10:10 AM Arline Lovelace RNIn/Out Bed Knpajqtursj99/02/2025 10:10 AM Arline Lovelace RNWalks in HomeIndependent 12/17/2024 10:10 AM Arline Lovelace RNWeakness of UikrIbqm66/02/2025 10:10 AM Arline Lovelace RNWeakness of Arms/AzrleFzgg11/02/2025 10:10 AM Arline Lovelace RNHearing - Right NziRqylhssrcf15/02/2025 10:10 AM Arline Lovelace RN Hearing - Left AddRtkelczxgu83/02/2025 10:10 AM Arline Lovelace RNWhich is your dominant hand?Right12/17/2024 10:10 AM Arline Lovelace RN * ConsultsQuestionAnswerDate of AssessmentAuthorSpiritual Care Consult NeededYes (Comment)12/17/2024 10:13 AM Arline Lovelace RNSocial Services Consult Needed No12/17/2024 10:13 AM Arline Lovelace RNPalliative Care Consult NeededNo 12/17/2024 10:13 AM Arline Lovelace RN * Therapy ConsultsQuestionAnswerDate of AssessmentAuthorPT Evaluation Needed2 12/17/2024 10:10 AM Arline Lovelace RNOT Evaluation Iujjmw987/02/2025 10:10 AM Arline Lovelace RNSLP Evaluation Gipjnf312/02/2025 10:10 AM Arline Lovelace RN * Assistive DevicesQuestionAnswerDate of AssessmentAuthorAssistive Devices Qyytqujsqe57/02/2025 10:10 AM Arline Lovelace RN * Provider NotificationQuestionAnswerDate of AssessmentAuthorProvider Role Physician Atdjamsik38/05/2025 9:16 AM Tiffani [place] RNCommunication CommentsPt stating bad pain in her abd after diet advanced to softs.12/20/2024 9:16 AM Tiffani [place] RNProvider MfazWtrwnex90/05/2025 9:16 AM Tiffani [place] RNMethod of CommunicationEpic Chat12/20/2024 9:16 AM Tiffani [place] RNReason for CommunicationPatient yxddeiv2112/20/2024 9:16 AM Tiffani [place] RNResponseWaiting for lkqmgesj46/05/2025 9:16 AM Tiffani [place] RN Notification Vhrv3583710/05/2025 9:16 AM Tiffani [place] RN * Epworth Fall Risk InterventionsQuestionAnswerDate of AssessmentAuthor Epworth Fall Risk KzqjldwkabztlGrhjthqo81/06/2025 7:47 AM ESTMakras, Tiffani, RN * QuestionAnswerDate of BexeeslajcPwvzrrJFWW6118/03/2025 8:27 PM ESTInterface, Device In * Calculated C-SSRS Risk Score (Lifetime/Recent)AnswerDate of AssessmentAuthorNo Risk Magdwlzfi08/02/2025 10:23 AM Arline Lovelace RN * Suicidal IdeationQuestionAnswerDate of AssessmentAuthor1. Wish to be (Lifetime)No12/17/2024 10:23 AM Arline Lovelace RN2. Non-Specific Active Suicidal Thoughts (Lifetime)No12/17/2024 10:23 AM Arline Lovelace RN * Suicidal BehaviorQuestionAnswerDate of AssessmentAuthorActual Attempt (Lifetime)No12/17/2024 10:23 AM Arline Lovelace RNHas subject engaged in non- suicidal self-injurious behavior? (Lifetime)No12/17/2024 10:23 AM Arline Lovelace RNInterrupted Attempts (Lifetime)No12/17/2024 10:23 AM Arline Lovelace, RNAborted or Self-Interrupted Attempt (Lifetime)No12/17/2024 10:23 AM Arline Paredes, RNPreparatory Acts or Behavior (Lifetime)No12/17/2024 10:23 AM Arline Lovelace RN * [place] Coma ScaleQuestionAnswerDate of AssessmentAuthorBest Eye Response Hkudwgglyhp43/06/2025 7:47 AM Tiffani [place] RNBest Verbal ResponseOriented 12/21/2024 7:47 AM Tiffani [place] RNBest Motor ResponseFollows commands 12/21/2024 7:47 AM Tiffani [place] RNGlasgow Coma Scale Rgfes1981/06/2025 7:47 AM Tiffani [place] RN * Is this patient currently opioid tolerant (receiving at least 60 mg morphine equivalent per day (MME/day) for past 7 days or longer)?AnswerDate of AssessmentAuthorOpioid Bxrxzedz45/04/2025 12:07 PM Hernandez Cornelius MD * Pain AssessmentQuestionAnswerDate of AssessmentAuthorPain LocationAbdomen 12/21/2024 7:47 AM Tiffani [place] RNPain OrientationLeft;Lower12/21/2024 7:47 AM Tiffani [place] RNPain InterventionsEmotional support;Food;Medication (See MAR);Relaxation technique;Rest;Repositioned 12/21/2024 7:47 AM Tiffani [place] RNPain Radiating FzfalzdCdp50/06/2025 7:47 AM Tiffani [place] RNPain DescriptorsOther (Comment)12/21/2024 7:47 AM Tiffani [place] RNPain JitykIiilrqi54/06/2025 7:47 AM Tiffani [place] RN Pain FrequencyConstant/gvdkacmxkg73/06/2025 7:47 AM Tiffani [place] RN Response to Interventionsimproved zngibemp80/06/2025 10:32 AM Tiffani [place]ona RNEffect of Pain on Daily Activitiescomfort/cwognsrld28/06/2025 7:47 AM Tiffani [place]ona RNPain TypeSurgical pain12/21/2024 7:47 AM Tiffani [place] RNClinical ProgressionGradually uzimluflu45/06/2025 7:47 AM Tiffani [place]ona RNPain Assessment0-10102/21/2024 7:47 AM Tiffani [place] RN * NutritionQuestionAnswerDate of AssessmentAuthorDiet TypeSoft/GI soft12/21/2024 7:47 AM Tiffani [place] RNFeedingAble to feed self12/21/2024 7:47 AM Tiffani Davis ODLsitphwjUgny64/06/2025 7:47 AM Tiffani [place] RN * IntegumentaryQuestionAnswerDate of AssessmentAuthorSkin ColorAppropriate for race12/21/2024 7:47 AM Tiffani [place]ona RNSkin Condition/TempWarm;Dry 12/21/2024 7:47 AM Tiffani [place]ona RNSkin IntegrityOther (Comment)12/21/2024 7:47 AM Tiffani [place] RNSkin TurgorNon-jvkdnuz7012/20/2024 8:11 PM Vani Acevedo RNIntegumentary Additional PplioutpxecIpvktaj32/05/2025 8:11 PM Vani Cerda RNIntegumentary (WDL)X102/21/2024 7:47 AM Tiffani [place] RN Does patient have tattoos?Yes12/20/2024 8:11 PM Vani Cerda RN * Pain ScoreAnswerDate of UmasqmlpvfLbccel370/06/2025 12:26 PM Tiffani [place] RN * [place] Suicide Severity Rating ScaleQuestionAnswerDate of AssessmentAuthor1. Have you wished you were or wished you could go to sleep and not wake up? No12/18/2024 6:54 PM Sarai Garcia * Audit Alcohol ScreeningQuestionAnswerDate of AssessmentAuthorTo your knowledge, has alcohol ever caused significant problems for the patient? (e.g., significantdistress to patient or those close to patient or impairment in social, occupational, or other important areas of functioning)No12/17/2024 10:13 AM Arline Lovelace RNBrief counselling was offered to the patientNo 12/17/2024 10:13 AM Arline Lovelace RNReferral for addictions treatment was odbmgsgNw88/02/2025 10:13 AM Arline Lovelace RNHow often do you have a drink containing alcohol? 10:13 AM Arline Lovelace RNHow many standard drinks containing alcohol do you have on a typical day?No12/17/2024 10:13 AM Arline Lovelace RNHow often do you have six or more drinks on one occasion?0 12/17/2024 10:13 AM Arline Lovelace RNAudit-C Ecsyh97402/17/2024 10:13 AM Arline Paredes RN * QuestionAnswerDate of AssessmentAuthorPatient Goal for Lcbyrqhsofp00/06/2025 8:00 AM Tiffani [place] RN * Drug ScreeningQuestionAnswerDate of AssessmentAuthorHave you used any substances (canabis, cocaine, heroin, hallucinogens, inhalants, etc.) in the past12 months?No12/17/2024 10:13 AM Arline Lovelace RNHave you used any prescription drugs other than prescribed in the past 12 months?No12/17/2024 10:13 AM Arline Lovelace RN * Patient BehaviorsAnswerDate of AssessmentAuthorMoaning;Ixquwsmv58/06/2025 12:26 PM Tiffani [place] RN * Modified AldreteQuestionAnswerDate of WahglcqhaiPcqnhwHtelxqzx617/03/2025 9:30 PM Alyce Hedrick RNRespiration2102/18/2024 9:30 PM Alyce Hedrick RNCirculation2102/18/2024 9:30 PM Alyce Hedrick RN Ahbqfrafwihmx055/03/2025 9:30 PM Alyce Hedrick RNOxygen Saturation1 12/18/2024 9:30 PM Alyce Hedrick RNModified Jesi Qwzke85302/18/2024 9:30 PM Alyce Hedrick RN * Modified Malnutrition Screening Tool (MST)QuestionAnswerDate of Assessment AuthorHave you recently lost weight without trying? 10:19 AM Arline Paredes RNHave you been eating poorly because of a decreased appetite?3 12/17/2024 10:19 AM Arline Lovelace RNOn home tube feeding or TPN? 10:19 AM Arline Lovelace RNDoes patient have a stage 2-4 pressure ulcer?0 12/17/2024 10:19 AM Arline Lovelace RN * Weight Loss ScoreAnswerDate of TbeexegthkBsdjho186/02/2025 10:19 AM Arline Lovelace RN * Malnutrition ScoreAnswerDate of WjfdutktvkEfpcmo763/02/2025 10:19 AM Arline Lovelace RN documented as of this encounter Mental Status * Kris Coma ScaleQuestionAnswerEntry DateAuthorBest Eye ResponseSpontaneous 12/21/2024 7:47 AM Tiffani Corona RNBest Verbal PfnmjkxkJddusuic30/06/2025 7:47 AM ESTMakras, Tiffani, RNBest Motor ResponseFollows xtwrugqw73/06/2025 7:47 AM Tiffani Corona RNGlasgow Coma Scale Zpzfv5868/06/2025 7:47 AM Tiffani Corona RN * Modified AldreteQuestionAnswerEntry CaaxRhomvzNmtdhufb846/03/2025 9:30 PM Alyce Shields RNRespiration2102/18/2024 9:30 PM Alyce eHdrick RN Qjkjppyiipz747/03/2025 9:30 PM Alyce Hedrick RNConsciousness2 12/18/2024 9:30 PM Alyce Hedrick RNOxygen Wywaoyiuyn613/03/2025 9:30 PM Alyce Hedrick RNModified Jesi Jldqw44702/18/2024 9:30 PM Alyce Shields RN documented in this encounter Discharge Summaries * Rosa Toledo MD - 12/21/2024 2:02 PM EST Admitting Provider: Anne Marie Scott MD Discharge Provider: No att. providers found Admission Date: 12/17/2024 Discharge Date: 12/21/2024 2:02 PM Primary Discharge Diagnosis Partial bowel obstruction (CMS/HCC) Discharge Disposition Home-Health Care [facility] (06) Code Status at Discharge: Full Abbey Garcia is a 34 y.o. female with a history of HTN, HLD, asthma, RICHAR, hypothyroidism, GERD, IBS, fibromyalgia, T2DM, median arcuate syndrome, recurrent GI obstructions and a past surgical historyof celiac plexus block and MALS release for median arcuate syndrome, gastric bypass, cholecystectomy, and appendectomy who presented from an outside facility on 12/17/2024 for partial small bowel obstruction. Patient was taken to OR for diagnostic laparoscopy, lysis of adhesions, closure of internal hernia on 12/18/24. Overall, she tolerated the procedure quite well, she was extubated in the OR, and transferred to the PACU in stable condition. Patient did experience nausea and vomiting with diet initiation, however has been able to control nausea with home medication regimen. Bowel function returned onthe 2nd day postop with passage of flatus as well as stool. During her time in the hospital she hadno difficulty ambulating, and her pain was adequately controlled. By the 3rd day postoperatively she was deemed stable for discharge. Vitals: 12/21/24 0743 BP: 107/57 Pulse: 67 Resp: 16 Temp: SpO2: 98% The patient was seen and examined on day of discharge and this discharge summary is in conjunction with any daily progress note from day of discharge. Consults: GI Significant Diagnostic Studies: CT Abdomen and Pelvis from OSH showing concern for internal hernia s/p gastric bypass surgery Discharge Medications: Your medication list CHANGE how you take these medications Instructions Last Dose Given Next Dose Due acetaminophen 325 mg tablet Commonly known as: Tylenol What changed: Another medication with the same name was added. Make sure you understand how and when to take each. acetaminophen 325 mg tablet Commonly known as: Tylenol What changed: You were already taking a medication with the same name, and this prescription was added. Make sure you understand how and when to take each. Take 2 tablets (650 mg) by mouth every 6 (six) hours for 395 doses. CONTINUE taking these medications Instructions Last Dose Given Next Dose Due ALBUTEROL INHL aspirin 81 mg chewable tablet [...] HYDROcodone-acetaminophen 5-325 mg tablet Commonly known as: [place] hydrocortisone 10 mg tablet Commonly known as: Cortef hydrOXYzine HCL 25 mg tablet Commonly known as: Atarax levothyroxine 75 mcg tablet Commonly known as: Synthroid, Levoxyl liothyronine 5 mcg tablet Commonly known as: Cytomel methocarbamol 750 mg tablet Commonly known as: Robaxin metoclopramide [...] not start before November 08, 2024. mirtazapine 45 mg tablet Commonly known as: Remeron omeprazole [...] by mouth at bedtime for 99 doses. topiramate 100 mg tablet Commonly known as: Topamax traMADol 50 mg tablet Commonly known as: Ultram traZODone 100 mg tablet Commonly known as: Desyrel verapamil 40 mg tablet Commonly known as: Calan Take 1 tablet (40 mg) by mouth every 8 (eight) hours for 287 doses. STOP taking these medications colchicine 0.6 mg tablet naloxone 0.4 mg/mL injection Commonly known as: Narcan ASK your doctor about these medications Instructions Last Dose Given Next Dose Due sucralfate 1 gram tablet Commonly known as: Carafate Where to Get Your Medications These medications were sent to [facility] - [address] [place] [address] [address] [facility] [place] [address], [facility] [address] acetaminophen 325 mg tablet Activity: activity as tolerated Diet: soft diet Time spent on discharge: >[address] Thomas Alas MD for the opportunity to be involved in this patient's care. Cosigned by Donnie Cesar MD at 12/26/2024 12:01 PM EST Associated attestation - Donnie Cesar MD - 12/26/2024 12:01 PM EST I saw and evaluated the patient, participating in the paula portions of the service. I have reviewed and supervised the patient visit. I discussed the findings and therapeutic plan. I agree with the findings, plan, and documentation. Donnie Cesar MD documented in this encounter Discharge Instructions * Discharge Instr - Diet* Allyson Marshall RN - 12/21/2024 1:39 PM EST Soft diet * Discharge Instr - Other Orders* Allyson Marshall RN - 12/21/2024 1:34 PM EST Continue TPN as previously ordered CVC Single Lumen 12/18/24 Tunneled Right Subclavian * Attachments The following attachments cannot be sent through Care Everywhere. * Bowel Obstruction [facility] (Georgian) documented in this encounter Medications at Time of Discharge MedicationSigDispense QuantityRefillsLast FilledStart DateEnd Date acetaminophen (Tylenol) 325 mg tablet Take 650 mg by mouth every 4 (four) hours if needed for mild pain (1-3 pain score). acetaminophen (Tylenol) 325 mg tablet Indications:Partial bowel obstruction (CMS/HCC)Take 2 tablets (650 mg) by mouth every 6 (six) hours for 395 doses. 30 tablet / ALBUTEROL INHL Inhale 90 mcg every 6 [...] the skin every 3rd (third) day. HYDROcodone-acetaminophen ([place]) 5-325 mg tablet Take 2 tablets by [...] 750 mg by mouth three times daily. metoprolol succinate XL (Toprol-XL) 25 mg 24 [...] (eight) hours for 287 doses. 90 tablet documented as of this encounter Progress Notes * ARELIS Perry - 12/21/2024 1:49 PM EST Active with [facility]. Sent updates. * Arabella Patel CNP - 12/21/2024 9:00 AM EST Gastroenterology/Hepatology Progress Note IDENTIFYING DATA PATIENT: Abbey Garcia ADMIT DATE: 12/17/2024 TIME OF EVALUATION: 12/21/2024 10:59 AM Reason for Consult: Chronic malnutrition/malabsorption Admitting Physician: Anne Marie Scott MD SUBJECTIVE/INTERVAL HISTORY Abbey Garcia's overnight events were reviewed. Patient seen and evaluated, sitting in chair at bedside. She reports continued LUQ/epigastric abdominal pain after eating, without specific food triggers.Also endorses nausea without vomiting. She had 1 small, loose bowel movement overnight. OBJECTIVE MEDICATIONS SCHEDULED: acetaminophen, 650 mg, oral, q6h TANIA aprepitant, 40 mg, oral, Daily aspirin, 81 mg, oral, Daily with breakfast clopidogrel, 75 mg, oral, Daily colchicine, 0.3 mg, oral, Every other day enoxaparin, 40 mg, subcutaneous, Daily escitalopram, 20 mg, oral, Daily fentaNYL, 1 patch, transdermal, q72h And fentaNYL, 1 patch, transdermal, q72h hydrocortisone, 10 mg, oral, Daily insulin lispro, 0-10 Units, subcutaneous, q6h TANIA levothyroxine, 75 mcg, oral, Daily before breakfast liothyronine, 5 mcg, oral, Daily methocarbamol, 750 mg, oral, TID metoprolol succinate XL, 25 mg, oral, Daily mirtazapine, 45 mg, oral, Nightly pantoprazole, 40 mg, oral, Daily ranolazine, 500 mg, oral, BID rosuvastatin, 40 mg, oral, Nightly scopolamine, 1 patch, transdermal, q72h traZODone, 100 mg, oral, Nightly PRNs: glucose, 24 g, q15 min PRN Or dextrose 50 % in water (D50W), 25 g, q15 min PRN diphenhydrAMINE, 50 mg, q6h PRN HYDROcodone-acetaminophen, 2 tablet, q4h PRN HYDROmorphone, 0.3 mg, q3h PRN hydrOXYzine HCL, 50 mg, Nightly PRN ondansetron ODT, 4 mg, q8h PRN Or ondansetron, 4 mg, q6h PRN ondansetron, 4 mg, Once PRN sodium chloride, 10 mL, q8h PRN traMADol, 50 mg, q6h PRN Physical VITALS: BP 107/57 (BP Location: Left arm, Patient Position: Sitting) Pulse 67 Temp 36.2 ??C (97.2 ??F) (Oral) Resp 16 Ht 1.676 m (5' 6 ) Wt 80.5 kg (177 lb 7.5 oz) SpO2 98% BMI 28.64 kg/m?? GEN: Alert and oriented x3, NAD CV: Regular rate and rhythm PULM: Breathing comfortably ABD: Soft, non-tender, non-distended NEURO: Moves all visualized extremities spontaneously LABS AND IMAGING CBC: Results from last 7 days Lab Units 12/21/24 0511 12/20/24 1020 12/20/24 0629 WBC AUTO 10*3/uL 2.92* 3.62* 3.80* RBC AUTO 10*6/uL 3.19* 3.26* 3.32* HEMOGLOBIN g/dL 9.5* 9.6* 9.7* HEMATOCRIT % 28.7* 28.7* 29.3* MCV fL 90.0 88.0 88.3 RDW % 15.5* 15.7* 15.7* PLATELETS AUTO 10*3/uL 223 223 225 PT/INR BMP: Results from last 7 days Lab Units 12/21/24 0511 12/20/24 0629 12/19/24 0749 SODIUM mmol/L 139 141 136 POTASSIUM mmol/L 3.9 3.7 4.1 CHLORIDE mmol/L 105 109* 106 BUN mg/dL 12 11 10 CREATININE mg/dL 0.55* 0.47* 0.44* EGFR mL/min/1.73m*2 122.5 127.2 129.3 GLUCOSE mg/dL 111* 82 206* LFTs: Results from last 7 days Lab Units 12/17/24 1305 BILIRUBIN TOTAL mg/dL 0.4 ALK PHOS U/L 58 AST U/L 28 ALT U/L 15 ALBUMIN g/dL 3.4* TOTAL PROTEIN g/dL 5.4* B12/Folate/Iron studies: Lab Results Component Value Date IRON 68 12/20/2024 TIBC 285 12/20/2024 UIBC 217.0 12/20/2024 IRONSAT 24 12/20/2024 Viral Hepatitis No results found for: HEPAIGM , HAV , HEPBSAG , HEPBSAB , HEPBEAB , HEPBIGM , HEPBCAB , HEPBCOREAB , HBVNAT , HCVSCR , HEPCAB , HCVNAT , HCVPCR , HCVTMA Liver workup No results found for: MISAEL , SMOOTHMUSCAB , CERULOPLSM , [id number] , TTGA , IGA , TSH , FREET4 , AFP Pancreatitis Lab Results Component Value Date CALCIUM 8.0 (L) 12/21/2024 IMAGING: CT abdomen pelvis 12/20/24: IMPRESSION: No acute findings and no imaging evidence for bowel obstruction XR abdomen 12/20/24: FINDINGS/IMPRESSION: Residual contrast throughout nondistended large bowel extending to the level of the rectum. Overall nonobstructive bowel gas pattern. Epigastric operative changes. Removal of prior gastric drainage tube. FL small bowel series 12/19/24: Impression: *Contrast seen in the colon at 4 hours compatible with no high-grade or complete small bowel obstruction. ASSESSMENT AND PLAN Abbey Garcia is a 34 y.o. female with past medical history of essential hypertension, hyperlipidemia, asthma, RICHAR, hypothyroidism, GERD, IBS, fibromyalgia, type 2 diabetes mellitus, s/p cholecystectomy in 2013 , appendectomy, surgical history of celiac plexus block and MALS release (02/2023), sleevegastrectomy with conversion to Tan-en-Y gastric bypass in 2021 due to reflux, s/p PEJ tube who haddiagnostic laparoscopy on 10/07/2023 and underwent gastropexy to secure small bowel to abdominal wall above jejunostomy and exchange of PEJ tube on 11/23/23, presented from an outside facility on 12/17 due to concern for partial small bowel obstruction. Patient was taken for diagnostic laparoscopy on 12/18, no internal hernia or bowel obstruction was found, Lysis of adhesions performed, jejunostomy site was closed. GI was consulted due to concern for chronic malnutrition/malabsorption. Assessment Postprandial abdominal pain, suspected functional dyspepsia Patient is postop from diagnostic laparoscopy 12/18/24. She reports postprandial abdominal pain. Suspected partial small bowel obstruction s/p diagnostic laparoscopy 12/18/24 Findings: No internal hernia or bowel obstruction. Both pseudopeterson's space and JJ mesenteric space closed. Inflammation on tan limb/adjacent mesentery immediately proximal to the Jejunojejunostomy. Suspect may be previous volvulus around this lead point. 2-0 Ethibond suture placed to close a tiny mesenteric defect adjacent to this and also to fixate the tan limb. Previous GI workup [facility] 04/30/20 without evidence of accelerated emptying of gastric contents, with 53% retention at 1hr(rapid emptying is <30% retention at 1hr), and no evidence of gastroparesis EUS with EGD 12/14/24 showed diffuse hyperemia of the gastric pouch, without other abnormal findings. Gastric biopsy negative. History of sleeve gastrectomy with conversion to Tan-en-Y gastric bypass in 2021 due to reflux S/p PEJ tube with diagnostic laparoscopy on 10/07/23 and gastropexy to secure small bowel to abdominal wall above jejunostomy and exchange of PEJ tube on 11/23/23, dependent on TPN in past History of celiac plexus block and MALS release (02/2023) S/p cholecystectomy in 2013 History of appendectomy Plan Suspected component of functional dyspepsia to patient's presentation, therefore recommend outpatient trial of neuromodulator, desipramine vs imipramine. No contraindication to discharge from GI perspective. GI will respectfully sign off; however, we are readily available if additional questions or concerns arise. We will arrange for outpatient follow up in the GI clinic with Dr. Knight at his first available appointment, as patient would like to establish care with [facility]. The case will be discussed with the attending physician Gastroenterology 6 am to 4 pm weekdays in house: [phone] 4 pm to 6 am or weekends: Please contact the highwall drill operator to page the fellow contract loader * Rosa Toledo MD - 12/21/2024 6:40 AM EST Images from the original note were not included. [facility] [place] General Surgery DAILY PROGRESS NOTE Subjective Patient seen and examined at bedside. Reports nausea after eating. Objective Vitals Vitals: 12/21/24 0301 BP: 108/60 Pulse: 67 Resp: 14 Temp: 36.2 ??C (97.2 ??F) SpO2: 100% I/O last 3 completed shifts: In: 2796.6 (36 mL/kg) [P.O.:240] Out: - (0 mL/kg) Weight: 77.6 kg No intake/output data recorded. Physical Exam General Appearance: AAOx3, NAD Neck: trachea midline, no JVD Pulmonary: good respiratory effort on room air, no audible wheezing Cardiac: RRR Abdomen: soft, appropriately TTP, incisions clean, dry, intact Extremities: no edema of bilateral upper and lower extremities Skin: warm and dry without rash,pale Eyes: no scleral icterus Labs Results from last 7 days Lab Units 12/21/24 0511 12/20/24 1020 12/20/24 0629 12/19/24 0749 12/17/24 1305 WBC AUTO 10*3/uL 2.92* 3.62* 3.80* 4.84 5.33 HEMOGLOBIN g/dL 9.5* 9.6* 9.7* 10.0* 9.8* HEMATOCRIT % 28.7* 28.7* 29.3* 29.6* 29.5* PLATELETS AUTO 10*3/uL 223 223 225 225 235 Results from last 7 days Lab Units 12/21/24 0511 12/20/24 0629 12/19/24 0749 12/17/24 1305 SODIUM mmol/L 139 141 136 139 POTASSIUM mmol/L 3.9 3.7 4.1 3.0* CO2 mmol/L 28 28 23 23 BUN mg/dL 12 11 10 13 CREATININE mg/dL 0.55* 0.47* 0.44* 0.59* Medications acetaminophen, 650 mg, oral, q6h TANIA aprepitant, 40 mg, oral, Daily aspirin, 81 mg, oral, Daily with breakfast clopidogrel, 75 mg, oral, Daily colchicine, 0.3 mg, oral, Every other day enoxaparin, 40 mg, subcutaneous, Daily escitalopram, 20 mg, oral, Daily fentaNYL, 1 patch, transdermal, q72h And fentaNYL, 1 patch, transdermal, q72h hydrocortisone, 10 mg, oral, Daily insulin lispro, 0-10 Units, subcutaneous, q6h TANIA levothyroxine, 75 mcg, oral, Daily before breakfast liothyronine, 5 mcg, oral, Daily methocarbamol, 750 mg, oral, TID metoprolol succinate XL, 25 mg, oral, Daily mirtazapine, 45 mg, oral, Nightly pantoprazole, 40 mg, oral, Daily ranolazine, 500 mg, oral, BID rosuvastatin, 40 mg, oral, Nightly scopolamine, 1 patch, transdermal, q72h traZODone, 100 mg, oral, Nightly Adult Cyclic 3-in-1 TPN, 2,500 mL, Last Rate: 180.2 mL/hr at 12/20/249 Imaging ECG 12 lead Normal sinus rhythm Normal ECG When compared with ECG of 26-NOV-2024 19:52, No significant change was found Confirmed by Erlin Geller ([id number]) on 12/20/2024 6:54:[address] abdomen pelvis w IV contrast Narrative: Procedure: CT ABDOMEN PELVIS W IV CONTRAST History: PO and IV contrast, RO obstruction Prior history of median arcuate syndrome treated with surgical release, sleeve gastrectomy, cholecystectomy, appendectomy, recurrent GI obstruction, fibromyalgia and irritable bowel syndrome Comparison: November 04 CT abdomen and pelvis performed using IV contrast without complications. Automated exposure control was utilized. Findings: Excellent bowel opacification of the entire GI tract. No evidence for bowel obstruction. There is sleeve gastrectomy morphology Multiple simple liver cysts are demonstrated. Spleen pancreas adrenal glands and kidneys show no acute findings Bladder unremarkable. Air within the bladder presumably due to instrumentation but best assessed in combination with other clinical data Impression: No acute findings and no imaging evidence for bowel obstruction All CT scans at this facility use dose modulation, iterative reconstruction, and/or weight based dosing when appropriate to reduce radiation dose to as low as reasonably achievable. Electronically signed: Rai Crespo. XR abdomen 1 view Narrative: XR ABDOMEN 1 VIEW 12/20/2024 9:57 AM CLINICAL INDICATIONS: Abdominal pain. COMPARISON: 12/19/2024 Impression: FINDINGS/IMPRESSION: Residual contrast throughout nondistended large bowel extending to the level of the rectum. Overall nonobstructive bowel gas pattern. Epigastric operative changes. Removal of prior gastric drainage tube. Electronically signed: Beltran Brian MD. Assessment/Plan Abbey M Jose is a 34 y.o. female who with PMH of HTN, HLD, asthma, RICHAR, hypothyroidism, GERD, IBS, fibromyalgia, T2DM, median arcuate syndrome, recurrent GI obstructions and a past surgical history of celiac plexus block and MALS release for median arcuate syndrome, sleeve gastrectomy, cholecystectomy, and appendectomy who presented from an outside facility on 12/17/2024 for partial small bowel obstruction. Patient was taken to OR for diagnostic laparoscopy, lysis of adhesions, closure of internal hernia on 12/18/24. POD 2, patient reports abdominal pain after eating breakfast. Will plan for CT Abdomen and Pelvis with PO and IV contrast. Will consult GI for evaluation and management. POD3, patient continues to endorse nausea after eating. Will get upper GI today with GI. Upper GI Soft diet Pain and nausea control prn Electrolyte repletioin Ambulate/OOB Rosa Toledo MD PGY1 General Surgery Resident Cosigned by Benja Dowd MD at 12/21/2024 3:08 PM EST Associated attestation - Benja Dowd MD - 12/21/2024 3:08 PM EST Patient was seen by resident staff. I reviewed with resident staff overnight events, exam and laboratory findings, assessment and management plan. Benja Dowd MD * Kaye Craig, RD - 12/20/2024 3:00 PM EST Adult Nutrition Assessment: Name: Abbey Garcia Date: 1990 Date of Visit: 12/20/24 Admission Dx: Partial bowel obstruction (CMS/HCC) [K56.600] Reason for assessment: high risk follow up Information obtained from: patient, medical record, physician, and [facility] PMH: HTN, HLD, asthma, RICHAR, hypothyroidism, GERD, IBS, PCOS, median arcuate ligament syndrome s/p celiac plexus block (2022), s/p MALS release (02/2023), morbid obesity, s/p sleeve gastrectomy, RYGP, chronic adhesions & SBO, gastroparesis, FTT, s/p JT (removed 08/17/24), chronic PN support, [facility] replaced 09/25/24 Current Medications: acetaminophen, 650 mg, oral, q6h TANIA aprepitant, 40 mg, oral, Daily aspirin, 81 mg, oral, Daily with breakfast clopidogrel, 75 mg, oral, Daily colchicine, 0.3 mg, oral, Every other day enoxaparin, 40 mg, subcutaneous, Daily escitalopram, 20 mg, oral, Daily fentaNYL, 1 patch, transdermal, q72h And fentaNYL, 1 patch, transdermal, q72h hydrocortisone, 10 mg, oral, Daily insulin lispro, 0-10 Units, subcutaneous, q6h TANIA levothyroxine, 75 mcg, oral, Daily before breakfast liothyronine, 5 mcg, oral, Daily methocarbamol, 750 mg, oral, TID metoprolol succinate XL, 25 mg, oral, Daily mirtazapine, 45 mg, oral, Nightly pantoprazole, 40 mg, oral, Daily ranolazine, 500 mg, oral, BID rosuvastatin, 40 mg, oral, Nightly scopolamine, 1 patch, transdermal, q72h traZODone, 100 mg, oral, Nightly Adult Cyclic 3-in-1 TPN, 2,500 mL Labs: 0 Lab Value Date/Time POCGLU 83 12/20/2024 1144 BUN 11 12/20/2024 0629 CREATININE 0.47 (L) 12/20/2024 0629 NA 141 12/20/2024 0629 K 3.7 12/20/2024 0629 PHOS 2.7 12/20/2024 0629 MG 2.0 12/19/2024 0749 HGBA1C 4.5 10/31/2024 0627 HGB 9.6 (L) 12/20/2024 1020 WBC 3.62 (L) 12/20/2024 1020 CHOL 116 (L) 10/31/2024 0627 HDL 43 10/31/2024 0627 Cl 109 CO2 28 Alk Phos 58, AST 28, ALT 15, Tbili 0.4 (12/17/24) TG 84 (10/31/24) Allergies: Allergies[1] Nutrition Problems: Swallowing Assessment: pt denies swallowing difficulty Mouth: pt denies chewing difficulty Abdominal Assessment: 12/14/24: EUS with EGD-unremarkable esophagus, diffuse hyperemia gastric pouch, unremarkable GJ anastamosis, unremarkable pancreatic body & tail. Pancreatic head & fiordaliza not visualized 2/2 h/ogastric bypass surgery 12/18/24: s/p diagnostic lap. No obstruction, inflammation Tan limb suture closure of 'tiny mesenteric defect 12/19/24: SBFT contrast seen in colon at 4 hr NGT removed 12/19/24 Last BM 12/19/24 Pt c/o ab pain & nausea this am 12/20/24 Ab XR residual contrast from SBFT, overall nonobstructive bowel gas pattern & CT AP no acute findings GI consulted Cognition: AO Feeding Skills: independent Skin Integrity: LLQ scar, previous JT site R groin hematoma, surgical access sites Nutrition Data/Clinical Indicators of Nutrition Status: Height: 167.6 cm (5' 6 ) Weight: 77.6 kg (171 lb 1.2 oz) BMI (Calculated): 27.63 Wt Readings from Last 10 Encounters: 11/03/24 84.8 kg (186 lb 15.2 oz) 08/20/24 86.5 kg (190 lb 11.2 oz) IBW: 59.3 kg UBW: 80.5 kg Weight change: no clinically significant changes Nutrition Assessment: 12/18/24: Known from previous admissions. Receives HPN 3 days per week (MWF) via [facility]. Supplemental IVF 0.45 NS 2 L two days per week + PRN. Managed by [facility]. Fairly stable order. Volume & Na acetate increased since last admission. PO diet regular as tolerated. Pt reports last oral intake &TPN was 12/15/24. Dextrose 200 g AA 90 g IVFE 20% 50 g Volume 2500 ml Na acetate 100 meq K acetate 85 meq Na Phos 30 mmol Mg sulfate 24 meq Ca gluconate 10 meq MVI & MTE Cu 0.2 mg Zn 3 mg Administered over 16 hr, no taper up, 3 hr taper down 12/20/24: Diet advanced to DM female, GI soft. Did not tolerate much, bites of omelet. Would like toreceive Boost but back to [facility] at 0919. TPN tonight. Dietary Orders (From admission, onward) Start Ordered 12/20/24 1228 Dietary nutrition supplements All meals; Boost Glucose Control; Chocolate; 8 oz; OralUntil discontinued Question Answer Comment Deliver with All meals Select supplement: Boost Glucose Control Flavor: Chocolate Strength: 8 oz Route Oral 12/20/24 1230 12/20/24918 Clear Liquid Diet Diet effective now Question: Room Service? Answer: No 12/20/24918 Nutrition Risk: High Nutrition Needs: Needs based on: ideal body weight (59.3 kg) Calorie needs: 1878-2583 kcals/day based on 25-30 kcal/kg Protein needs: 59-71 g/day based on 1-1.2 g/kg Fluid needs: 1779 ml/day based on 30 ml/kg+ Nutrition Diagnosis: Inadequate oral intake related to altered GI function as evidenced by gastroparesis, failed EN, supplemental PN ongoing Malnutrition Assessment: Per Registered Dietitian assessment and evaluation, patient does not currently meet criteria OR there is not enough information to support the diagnosis of malnutrition per the clinical criteria set by the Academy of Nutrition and Dietetics (AND) and the [place] [employer] of Enteral and Parenteral Nutrition (ASPEN). Treatment Plan: TPN tonight per home schedule Diet as tolerated Boost GC chocolate TID when advanced to FLD Goals: Weight maintenance Maintain visceral protein Nutrition-related labs (magnesium, phosphorus, BMP) wnl To reach the Clinical Dietitian, please utilize [facility] chat Wednesday-Wednesday from 8AM-4PM or call extension [phone]. For weekends (Wednesday-Wednesday) and hols, the Clinical Dietitian can be reached via pager ([phone]) from 9AM-3PM. The Clinical Nutrition Department is unable to respond to [facility] chat messages on Sundays and s. [1] Allergies Allergen Reactions Adhesive Tape-Silicones Other Sensitive to certain adhesive tapes. Redness and itchy. Codeine Nausea And Vomiting Nsaids (Non-Steroidal Anti-Inflammatory Drug) GI intolerance Adhesive Rash * Rosa Toledo MD - 12/20/2024 12:58 PM EST Images from the original note were not included. [facility] [place] General Surgery DAILY PROGRESS NOTE Subjective Patient seen and examined by bedside. Reports worsening abdominal pain after breakfast. Objective Vitals Vitals: 12/20/24 1153 BP: 104/63 Pulse: 64 Resp: Temp: SpO2: I/O last 3 completed shifts: In: 2656.6 (34.2 mL/kg) [IV Piggyback:100] Out: 250 (3.2 mL/kg) [Urine:250 (0.1 mL/kg/hr)] Weight: 77.6 kg I/O this shift: In: 240 [P.O.:240] Out: - Physical Exam General Appearance: AAOx3, NAD Neck: trachea midline, no JVD Pulmonary: good respiratory effort on room air, no audible wheezing Cardiac: RRR Abdomen: soft, appropriately TTP, incisions clean, dry, intact Extremities: no edema of bilateral upper and lower extremities Skin: warm and dry without rash,pale Eyes: no scleral icterus Labs Results from last 7 days Lab Units 12/20/24 1020 12/20/24 0629 12/19/24 0749 12/17/24 1305 WBC AUTO 10*3/uL 3.62* 3.80* 4.84 5.33 HEMOGLOBIN g/dL 9.6* 9.7* 10.0* 9.8* HEMATOCRIT % 28.7* 29.3* 29.6* 29.5* PLATELETS AUTO 10*3/uL 223 225 225 235 Results from last 7 days Lab Units 12/20/24 0629 12/19/24 0749 12/17/24 1305 SODIUM mmol/L 141 136 139 POTASSIUM mmol/L 3.7 4.1 3.0* CO2 mmol/L 28 23 23 BUN mg/dL 11 10 13 CREATININE mg/dL 0.47* 0.44* 0.59* Medications acetaminophen, 650 mg, oral, q6h TANIA aprepitant, 40 mg, oral, Daily aspirin, 81 mg, oral, Daily with breakfast clopidogrel, 75 mg, oral, Daily colchicine, 0.3 mg, oral, Every other day enoxaparin, 40 mg, subcutaneous, Daily escitalopram, 20 mg, oral, Daily fentaNYL, 1 patch, transdermal, q72h And fentaNYL, 1 patch, transdermal, q72h hydrocortisone, 10 mg, oral, Daily insulin lispro, 0-10 Units, subcutaneous, q6h [facility] levothyroxine, 75 mcg, oral, Daily before breakfast liothyronine, 5 mcg, oral, Daily methocarbamol, 750 mg, oral, TID metoprolol succinate XL, 25 mg, oral, Daily mirtazapine, 45 mg, oral, Nightly pantoprazole, 40 mg, oral, Daily ranolazine, 500 mg, oral, BID rosuvastatin, 40 mg, oral, Nightly scopolamine, 1 patch, transdermal, q72h traZODone, 100 mg, oral, Nightly Adult Cyclic 3-in-1 TPN, 2,500 mL Imaging ECG 12 lead Normal sinus rhythm Normal ECG When compared with ECG of 26-NOV-2024 19:52, No significant change was found XR abdomen 1 view Narrative: XR ABDOMEN 1 VIEW 12/20/2024 9:57 AM CLINICAL INDICATIONS: Abdominal pain. COMPARISON: 12/19/2024 Impression: FINDINGS/IMPRESSION: Residual contrast throughout nondistended large bowel extending to the level of the rectum. Overall nonobstructive bowel gas pattern. Epigastric operative changes. Removal of prior gastric drainage tube. Electronically signed: Beltran Brian MD. Assessment/Plan Abbey Garcia is a 34 y.o. female who with PMH of HTN, HLD, asthma, RICHAR, hypothyroidism, GERD, IBS, fibromyalgia, T2DM, median arcuate syndrome, recurrent GI obstructions and a past surgical history of celiac plexus block and MALS release for median arcuate syndrome, sleeve gastrectomy, cholecystectomy, and appendectomy who presented from an outside facility on 12/17/2024 for partial small bowel obstruction. Patient was taken to OR for diagnostic laparoscopy, lysis of adhesions, closure of internal hernia on 12/18/24. POD 2, patient reports abdominal pain after eating breakfast. Will plan for CT Abdomen and Pelvis with PO and IV contrast. Will consult GI for evaluation and management. CT Abdomen and Pelvis with PO and IV contrast Consult GI Clear liquid diet Pain and nausea control prn Electrolyte repletioin Ambulate/OOB Rosa Toeldo MD PGY1 General Surgery Resident Cosigned by Benja Dowd MD at 12/20/2024 4:34 PM EST Associated attestation - Benja Dowd MD - 12/20/2024 4:34 PM EST Attending attestation: GC: I personally saw this patient on the day of the encounter, performed the paula portion(s) of the service and participated in the management and confirm the resident's documentation. Please note there may be an additional personal documentation from me. Additional Comments: agree * Rosa Toledo MD - 12/19/2024 7:33 AM EST Images from the original note were not included. [facility] [place] General Surgery DAILY PROGRESS NOTE Subjective Patient seen and examined by bedside. Reports 9 out of 10 pain. Ambulating and urinating ok. NG output 100ml. +Nausea overnight Objective Vitals Vitals: 12/19/24 0650 BP: 120/66 Pulse: 77 Resp: 16 Temp: 36.6 ??C (97.9 ??F) SpO2: 97% I/O last 3 completed shifts: In: 1051.7 (12.5 mL/kg) [I.V.:951.7 (11.3 mL/kg); IV Piggyback:100] Out: 250 (3 mL/kg) [Urine:250 (0.1 mL/kg/hr)] Weight: 84.4 kg No intake/output data recorded. Physical Exam General Appearance: AAOx3, NAD Neck: trachea midline, no JVD Pulmonary: good respiratory effort on room air, no audible wheezing Cardiac: RRR Abdomen: soft, appropriately TTP, incisions clean, dry, intact Extremities: no edema of bilateral upper and lower extremities Skin: warm and dry without rash,pale Eyes: no scleral icterus Labs Results from last 7 days Lab Units 12/17/24 1305 WBC AUTO 10*3/uL 5.33 HEMOGLOBIN g/dL 9.8* HEMATOCRIT % 29.5* PLATELETS AUTO 10*3/uL 235 Results from last 7 days Lab Units 12/17/24 1305 SODIUM mmol/L 139 POTASSIUM mmol/L 3.0* CO2 mmol/L 23 BUN mg/dL 13 CREATININE mg/dL 0.59* Medications aprepitant, 40 mg, oral, Daily scopolamine, 1 patch, transdermal, q72h Adult Cyclic 3-in-1 TPN, 2,500 mL, Last Rate: 180.2 mL/hr at 12/18/24 2206 Imaging XR transfer of outside films This order has been auto-finalized and does not contain a result. XR transfer of outside films This order has been auto-finalized and does not contain a result. XR transfer of outside films This order has been auto-finalized and does not contain a result. XR transfer of outside films This order has been auto-finalized and does not contain a result. CT transfer of outside films This order has been auto-finalized and does not contain a result. CT transfer of outside films This order has been auto-finalized and does not contain a result. CT transfer of outside films This order has been auto-finalized and does not contain a result. CT transfer of outside films This order has been auto-finalized and does not contain a result. CT transfer of outside films This order has been auto-finalized and does not contain a result. Assessment/Plan Abbey Garcia is a 34 y.o. female who with PMH of HTN, HLD, asthma, RICHAR, hypothyroidism, GERD, IBS, fibromyalgia, T2DM, median arcuate syndrome, recurrent GI obstructions and a past surgical history of celiac plexus block and MALS release for median arcuate syndrome, sleeve gastrectomy, cholecystectomy, and appendectomy who presented from an outside facility on 12/17/2024 for partial small bowel obstruction. Patient was taken to OR for diagnostic laparoscopy, lysis of adhesions, closure of internal hernia on 12/18/24. POD1 - NG output 100ml, will get SBFT today. Diet pending results. Small bowel follow through Will consider diet pending results of study NG tube removed Restart home meds Continue IV fluids Incentive spirometry Ambulate/OOB Rosa Toledo MD PGY1 General Surgery Resident Cosigned by Benja Dowd MD at 12/19/2024 1:55 PM EST Associated attestation - Benja Dowd MD - 12/19/2024 1:55 PM EST Attending attestation: GC: I personally saw this patient on the day of the encounter, performed the paula portion(s) of the service and participated in the management and confirm the resident's documentation. Please note there may be an additional personal documentation from me. Additional Comments: agree * Marlys Martinez MD - 12/18/2024 3:46 PM EST Images from the original note were not included. [facility] [place] General Surgery DAILY PROGRESS NOTE Subjective Patient seen and examined by bedside. Reports general weakness, continues to have abdominal pain inthe epigastric area, nausea/vomiting, and abdominal pain. . Objective Vitals Vitals: 12/18/24 0650 BP: 124/67 Pulse: 70 Resp: 17 Temp: 36.3 ??C (97.3 ??F) SpO2: 100% I/O last 3 completed shifts: In: 300 (3.6 mL/kg) [IV Piggyback:300] Out: - (0 mL/kg) Weight: 84.4 kg I/O this shift: In: 951.7 [I.V.:951.7] Out: - Physical Exam General Appearance: AAOx3, NAD Neck: trachea midline, no JVD Pulmonary: good respiratory effort on room air, no audible wheezing Cardiac: RRR Abdomen: soft, non-distended, non-tender, no guarding, no rebound tenderness Extremities: no edema of bilateral upper and lower extremities Skin: warm and dry without rash,pale Eyes: no scleral icterus Labs Results from last 7 days Lab Units 12/17/24 1305 WBC AUTO 10*3/uL 5.33 HEMOGLOBIN g/dL 9.8* HEMATOCRIT % 29.5* PLATELETS AUTO 10*3/uL 235 Results from last 7 days Lab Units 12/17/24 1305 SODIUM mmol/L 139 POTASSIUM mmol/L 3.0* CO2 mmol/L 23 BUN mg/dL 13 CREATININE mg/dL 0.59* Medications Adult Cyclic 3-in-1 TPN, 2,500 mL Imaging XR transfer of outside films This order has been auto-finalized and does not contain a result. XR transfer of outside films This order has been auto-finalized and does not contain a result. XR transfer of outside films This order has been auto-finalized and does not contain a result. XR transfer of outside films This order has been auto-finalized and does not contain a result. CT transfer of outside films This order has been auto-finalized and does not contain a result. CT transfer of outside films This order has been auto-finalized and does not contain a result. CT transfer of outside films This order has been auto-finalized and does not contain a result. CT transfer of outside films This order has been auto-finalized and does not contain a result. CT transfer of outside films This order has been auto-finalized and does not contain a result. Assessment/Plan Abbey Garcia is a 34 y.o. female who with PMH of HTN, HLD, asthma, RICHAR, hypothyroidism, GERD, IBS, fibromyalgia, T2DM, median arcuate syndrome, recurrent GI obstructions and a past surgical history of celiac plexus block and MALS release for median arcuate syndrome, sleeve gastrectomy, cholecystectomy, and appendectomy who presented from an outside facility on 12/17/2024 for partial small bowel obstruction. NG tube placement confirmed with imaging - 12/17/2024. Continue with conservative measures, no acute intervention for now Obtain images from previous facility for further evaluation NPO for now, ok for sip with medication with 30 min clamping of NG after NG tube to LWIS Continue IV fluids Incentive spirometry Ambulate/OOB DVT ppx: hold for now Addendum: Ct scan was reviewed by Dr. Marlene Dowd, with concern for possible internal hernia. Bariatricconsult placed for further evaluation. Marlys Martinez MD, PGY 1 12/18/24 Cosigned by Benja Dowd MD at 12/18/2024 6:23 PM EST Associated attestation - Benja Dowd MD - 12/18/2024 6:23 PM EST Attending attestation: GC: I personally saw this patient on the day of the encounter, performed the paula portion(s) of the service and participated in the management and confirm the resident's documentation. Please note there may be an additional personal documentation from me. Additional Comments: # Nausea and vomiting # Internal hernia small bowel obstruction # History of gastric bypass Patient presents with 1 day history of worsening nausea and vomiting relieved after nasogastric tube placement. Reports history of gastric bypass for weight loss. Upon review of prior surgical history, diagnosed with gastroparesis 2 years ago and at 1 point required jejunostomy feeding, since then have been TPN dependent as well. Reported diagnosis of bowel obstruction from outside hospital. CT imaging was requested and transferred from outside hospital. Independent review of CT imaging by myself raises concern for mesenteric swirling and internal hernia as etiology of patient's bowel obstruction. I discussed over the phone of the surgical concern with bariatric surgery today, official consult placed. Plan for bariatric surgery to proceed with operative intervention for the internal hernia today. * Kaye Craig, RD - 12/18/2024 12:09 PM EST Adult Nutrition Assessment: Name: Abbey Garcia Date: 1990 Date of Visit: 12/18/24 Admission Dx: Partial bowel obstruction (CMS/HCC) [K56.600] Reason for assessment: high risk HPN Information obtained from: patient, medical record, physician, and [facility] PMH: HTN, HLD, asthma, RICHAR, hypothyroidism, GERD, IBS, PCOS, median arcuate ligament syndrome s/p celiac plexus block (2022), s/p MALS release (02/2023), morbid obesity, s/p sleeve gastrectomy, RYGP, chronic adhesions & SBO, gastroparesis, FTT, s/p JT (removed 08/17/24), chronic PN support, [facility] replaced 09/25/24 Current Medications: sodium chloride, 100 mL/hr, Last Rate: 100 mL/hr (12/18/24 0329) Labs: 0 Lab Value Date/Time POCGLU 91 12/14/2024 0747 BUN 13 12/17/2024 1305 CREATININE 0.59 (L) 12/17/2024 1305 NA 139 12/17/2024 1305 K 3.0 (L) 12/17/2024 1305 PHOS 4.7 11/07/2024 0450 MG 1.9 11/17/2024 0517 HGBA1C 4.5 10/31/2024 0627 HGB 9.8 (L) 12/17/2024 1305 WBC 5.33 12/17/2024 1305 CHOL 116 (L) 10/31/2024 0627 HDL 43 10/31/2024 0627 Cl CO2 Alk Phos AST/ALT Tbili TG Kcl 60 meq iv replacement ordered Allergies: Allergies[1] Nutrition Problems: Swallowing Assessment: pt denies swallowing difficulty Mouth: pt denies chewing difficulty Abdominal Assessment: N/V & no BM since 2 days [employer] NGT in place, little OP h/o prior gastrectomy Pt reports she passed gas today 12/14/24: EUS with EGD-unremarkable esophagus, diffuse hyperemia gastric pouch, unremarkable GJ anastamosis, unremarkable pancreatic body & tail. Pancreatic head & fiordaliza not visualized 2/2 h/ogastric bypass surgery Cognition: AO Feeding Skills: independent Skin Integrity: LLQ scar, previous JT site R groin hematoma, surgical access sites Nutrition Data/Clinical Indicators of Nutrition Status: Height: 167.6 cm (5' 6 ) Weight: 84.4 kg (186 lb 1.1 oz) BMI (Calculated): 30.05 Wt Readings from Last 10 Encounters: 11/03/24 84.8 kg (186 lb 15.2 oz) 08/20/24 86.5 kg (190 lb 11.2 oz) IBW: 59.3 kg UBW: 80.5 kg Weight change: no clinically significant changes Nutrition Assessment: Known from previous admissions. Receives HPN 3 days per week (MWF) via [facility]. Supplemental IVF 0.45 NS 2 L two days per week + PRN. Managed by [facility]. Fairly stable order. Volume & Na acetate increased since last admission. PO diet regular as tolerated. Pt reports last oral intake & TPN was 12/15/24. Dextrose 200 g AA 90 g IVFE 20% 50 g Volume 2500 ml Na acetate 100 meq K acetate 85 meq Na Phos 30 mmol Mg sulfate 24 meq Ca gluconate 10 meq MVI & MTE Cu 0.2 mg Zn 3 mg Administered over 16 hr, no taper up, 3 hr taper down Dietary Orders (From admission, onward) Start Ordered 12/17/24 1219 Diet NPO Diet effective now Comments: No exceptions Question: Reason for NPO: Answer: Bowel Obstruction 12/17/24 1223 Nutrition Risk: High Nutrition Needs: Needs based on: ideal body weight (59.3 kg) Calorie needs: 7897-4048 kcals/day based on 25-30 kcal/kg Protein needs: 59-71 g/day based on 1-1.2 g/kg Fluid needs: 1779 ml/day based on 30 ml/kg+ Nutrition Diagnosis: Inadequate oral intake related to altered GI function as evidenced by gastroparesis, failed EN, supplemental PN ongoing Malnutrition Assessment: Per Registered Dietitian assessment and evaluation, patient does not currently meet criteria OR there is not enough information to support the diagnosis of malnutrition per the clinical criteria set by the Academy of Nutrition and Dietetics (AND) and the [place] [employer] of Enteral and Parenteral Nutrition (ASPEN). Treatment Plan: Resume HPN schedule per General Surgery Monitor NPO status, reevaluate if prolonged Goals: Weight maintenance Maintain visceral protein Nutrition-related labs (magnesium, phosphorus, BMP) wnl To reach the Clinical Dietitian, please utilize [facility] chat Wednesday-Wednesday from 8AM-4PM or call extension [phone]. For weekends (Wednesday-Wednesday) and hols, the Clinical Dietitian can be reached via pager ([phone]) from 9AM-3PM. The Clinical Nutrition Department is unable to respond to [facility] chat messages on Sundays and s. [1] Allergies Allergen Reactions Adhesive Tape-Silicones Other Sensitive to certain adhesive tapes. Redness and itchy. Codeine Nausea And Vomiting Nsaids (Non-Steroidal Anti-Inflammatory Drug) GI intolerance Adhesive Rash documented in this encounter H&P Notes * Donnie Cesar MD - 12/18/2024 6:11 PM EST H&P reviewed. The patient was examined. Patient currently has a tan-en-y gastric bypass anatomy, NOT sleeve (had sleeve to RYGB conversion in 2021 due to reflux). CT reviewed, noted free fluid and swirling concerning for internal hernia. Will take to OR for diagnostic laparoscopy, possible resection, possible open. The risk and complication of the operation were explained to the patient including but not limited to bleeding, infection, injury to surrounding structures that may lead to further procedures/hospitalizations/drains and if not treated. Source Note - Vilma Galaviz MD - 12/17/2024 1:59 PM EST [facility] [place] General Surgery HISTORY & PHYSICAL Reason for Admission: partial small bowel obstruction History of Present Illness: Abbey Garcia is a 34 y.o. female with pertinent past medical history of HTN, HLD, asthma, RICHAR, hypothyroidism, GERD, IBS, fibromyalgia, T2DM, median arcuate syndrome, recurrent GI obstructions and a past surgical history of celiac plexus block and MALS release for median arcuate syndrome, sleeve gastrectomy who presented from an outside facility on 12/17/2024 for partial small bowel obstruction. Patient stated that she began to have abdominal pain two days ago. She had persistent nausea and vomiting. She stated that this is how she felt with previous bowel obstructions. Last bowel movement she remembers was 2 days ago and she states that she has not passed gas. Ng tube was placed at outside facility and CXR obtain upon her arrival shows god positioning of theNG tube. Labs upon her arrival shows hypokalemia and hyperchloremia. WBC is normal at 5 and hemoglobin is 9.8. Review of Systems Constitutional: Positive for appetite change. Negative for chills, fatigue and fever. Respiratory: Negative for chest tightness, shortness of breath and stridor. Cardiovascular: Negative for chest pain. Gastrointestinal: Positive for abdominal pain, nausea and vomiting. Medical History[1] Surgical History[2] Allergies[3] Current Medications[4] [...] of Health Financial Resource Strain: Low Risk (12/17/2024) Overall Financial Resource Strain (CARDIA) Difficulty of Paying Living Expenses: Not hard at all Food Insecurity: No Food Insecurity (12/17/2024) Hunger Vital Sign Worried About Running Out of Food in the Last Year: Never true Ran Out of Food in the Last Year: Not on file Transportation Needs: No Transportation Needs (12/17/2024) Transportation Lack of Transportation (Medical): No Lack of Transportation (Non-Medical): Not on file Physical Activity: Insufficiently Active (06/30/2023) Received from [facility] Exercise Vital Sign Days of Exercise per Week: 3 days Minutes of Exercise per Session: 10 min Stress: Stress Concern Present (06/30/2023) Received from [facility] [place] [facility] Occup[employer] - Occupational Stress Questionnaire Feeling of Stress : Rather much Social Connections: Moderately Integrated (06/30/2023) Received from [facility] Social Connection and Isolation Panel [NHANES] Frequency of Communication with Friends and Family: Twice a week Frequency of Social Gatherings with Friends and Family: Twice a week Attends Islam Services: More than 4 times per year Active Member of Clubs or Organizations: No Attends Club or Organization Meetings: Never Marital Status: Intimate Partner Violence: Unknown (12/17/2024) Humiliation, Afraid, Rape, and Kick questionnaire Fear of Current or Ex-Partner: No Emotionally Abused: Not on file Physically Abused: Not on file Sexually Abused: Not on file Housing Stability: Low Risk (12/17/2024) Housing Stability Vital Sign Unable to Pay for Housing in the Last Year: No Number of Times Moved in the Last Year: 0 Homeless in the Last Year: No Family History[5] Physical Exam: Vital Signs: Blood pressure 122/78, pulse 80, temperature 36.5 ??C (97.7 ??F), temperature source Oral, resp. rate 16, height 1.676 m (5' 6 ), weight 80.3 kg (177 lb), SpO2 96%. Admission Weight: Weight: 80.3 kg (177 lb) Physical Exam Constitutional: Appearance: Normal appearance. HENT: Head: Normocephalic and atraumatic. Pulmonary: Effort: Pulmonary effort is normal. No respiratory distress. Breath sounds: Normal breath sounds. No stridor. No wheezing. Abdominal: General: There is no distension. Palpations: Abdomen is soft. Tenderness: There is abdominal tenderness. There is no guarding. Comments: Mild diffuse tenderness, NG tube in place Skin: General: Skin is warm and dry. Neurological: General: No focal deficit present. Mental Status: She is alert and oriented to person, place, and time. Psychiatric: Mood and Affect: Mood normal. Behavior: Behavior normal. Labs: Lab Results Component Value Date WBC 5.33 12/17/2024 HGB 9.8 (L) 12/17/2024 HCT 29.5 (L) 12/17/2024 MCV 88.6 12/17/2024 PLT 235 12/17/2024 Lab Results Component Value Date CALCIUM 7.8 (L) 12/17/2024 NA 139 12/17/2024 K 3.0 (L) 12/17/2024 CO2 23 12/17/2024 CL 110 (H) 12/17/2024 BUN 13 12/17/2024 CREATININE 0.59 (L) 12/17/2024 No results found for: AMYLASE Lab Results Component Value Date LIPASE 55 11/26/2024 Lab Results Component Value Date ALT 15 12/17/2024 AST 28 12/17/2024 ALKPHOS 58 12/17/2024 Lab Results Component Value Date INR 1.17 (H) 11/03/2024 INR 1.15 (H) 10/30/2024 Imaging: EUS (Upper) w/ EGD Intervention(s): EUS w/ FNA Esophagogastroduodenoscopy (EGD) & Endoscopic Ultrasound Procedure Note Procedure: EGD with endoscopic ultrasound and biopsy Indications: CBD dilation with an MRCP that was [...] abdominal pain. Sedation: MAC sedation Attending Physician: Braxton Bellamy MD Procedure Details: Informed consent was obtained for the procedure, including sedation. Risks of infection, perforation, hemorrhage, adverse drug reaction, and aspiration were discussed. The patient was placed in the left lateral decubitus position. The patient was monitored continuously with ECG tracing, pulse oximetry, blood pressure monitoring, and direct observation. The gastroscope was inserted into the mouth and advanced under direct vision to jejunum. A careful inspection was made as the gastroscope was withdrawn, including a retroflexed view of the proximal stomach; findings and interventions are described below. The Olympus video radial echoendoscope was then introduced through the mouth down to the esophagus, stomach and into the first and second part of the duodenum with no difficulties. After completing the endosonographic examination the scope was [...] to previous history of gastric bypass surgery. The radial echoendoscope was then withdrawn and the patient tolerated the procedure well and was sent to the recovery room in stable condition. Complications: None Estimated blood loss: Minimal Disposition: Home Condition: stable Impression: Unremarkable examination of the esophagus. Diffuse hyperemia of the gastric pouch. Biopsies were obtained. Unremarkable examination of the gastrojejunal anastomosis site and the jejunum. Unremarkable endosonographic examination of the pancreatic body and tail. The pancreatic head and the distal common [...] removal. Attending Attestation: I performed the procedure. Assessment: Abbey Garcia is a 34 y.o.female with PMH of HTN, HLD, asthma, RICHAR, hypothyroidism, GERD, IBS, fibromyalgia, T2DM, median arcuate syndrome, recurrent GI obstructions and a past surgical history of celiac plexus block and MALS release for median arcuate syndrome, sleeve gastrectomy, cholecystectomy, and appendectomy who presented from an outside facility on 12/17/2024 for partial small bowel obstruction. NG tube placement confirmed with imaging. Patient states that she continues to have abdominal pain in the epigastric area, nausea/vomiting, and abdominal pain. Plan: Correct electrolyte abnormalities Continue with IV fluids NG tube to LWIS Diet: NPO DVT ppx: will hold for now Vilma Galaviz MD General Surgery Resident, PGY-1 12/17/24 [1] Past Medical History: Diagnosis Date Adrenal insufficiency [...] Radiculopathy Sepsis (CMS/HCC) Small bowel obstruction (CMS/HCC) [2] Past Surgical History: Procedure Laterality Date ABDOMINAL SURGERY BARIATRIC SURGERY Tan-en-y CARDIAC CATHETERIZATION CARDIAC CATHETERIZATION 11/02/2024 CENTRAL VENOUS CATHETER INSERTION CENTRAL VENOUS CATHETER REMOVAL CENTRAL VENOUS CATHETER TUNNELED INSERTION SINGLE LUMEN Hodges CHOLECYSTECTOMY ESOPHAGOGASTRODUODENOSCOPY 09/29/2024 UPPER GASTROINTESTINAL ENDOSCOPY 03/10/2024 VASCULAR SURGERY Right right leg blood clot [3] Allergies Allergen Reactions Adhesive Tape-Silicones Other Sensitive to certain adhesive tapes. Redness and itchy. Codeine Nausea And Vomiting Nsaids (Non-Steroidal Anti-Inflammatory Drug) GI intolerance Adhesive Rash [4] Current Facility-Administered Medications: HYDROmorphone (Dilaudid) injection 0.2 mg, 0.2 mg, intravenous, q3h PRN OR HYDROmorphone (Dilaudid) injection 0.4 mg, 0.4 mg, intravenous, q3h PRN, Vilma Galaviz MD ondansetron ODT (Zofran-ODT) disintegrating tablet 4 mg, 4 mg, oral, q8h PRN OR ondansetron HCl(PF) (Zofran) injection 4 mg, 4 mg, intravenous, q6h PRN, Vilma Galaviz MD sodium chloride 0.9 % infusion, 100 mL/hr, intravenous, Continuous, Vilma Galaviz MD, Last Rate: 100mL/hr at 12/17/24 1301, 100 mL/hr at 12/17/24 1301 Insert peripheral IV, , , Once AND Saline lock IV, , , Once AND sodium chloride flush 10 mL, 10 mL, intravenous, q8h PRN, Vilma Galaviz MD [5] Family History Problem Relation Name Age of Onset No Known Problems Mother No Known Problems Father Cosigned by Anne Marie Scott MD at 12/18/2024 5:49 AM EST * Vilma Galaviz MD - 12/17/2024 1:59 PM EST [facility] [place] General Surgery HISTORY & PHYSICAL Reason for Admission: partial small bowel obstruction History of Present Illness: Abbey Garcia is a 34 y.o. female with pertinent past medical history of HTN, HLD, asthma, RICHAR, hypothyroidism, GERD, IBS, fibromyalgia, T2DM, median arcuate syndrome, recurrent GI obstructions and a past surgical history of celiac plexus block and MALS release for median arcuate syndrome, sleeve gastrectomy who presented from an outside facility on 12/17/2024 for partial small bowel obstruction. Patient stated that she began to have abdominal pain two days ago. She had persistent nausea and vomiting. She stated that this is how she felt with previous bowel obstructions. Last bowel movement she remembers was 2 days ago and she states that she has not passed gas. Ng tube was placed at outside facility and CXR obtain upon her arrival shows god positioning of theNG tube. Labs upon her arrival shows hypokalemia and hyperchloremia. WBC is normal at 5 and hemoglobin is 9.8. Review of Systems Constitutional: Positive for appetite change. Negative for chills, fatigue and fever. Respiratory: Negative for chest tightness, shortness of breath and stridor. Cardiovascular: Negative for chest pain. Gastrointestinal: Positive for abdominal pain, nausea and vomiting. Medical History[1] Surgical History[2] Allergies[3] Current Medications[4] [...] of Health Financial Resource Strain: Low Risk (12/17/2024) Overall Financial Resource Strain (CARDIA) Difficulty of Paying Living Expenses: Not hard at all Food Insecurity: No Food Insecurity (12/17/2024) Hunger Vital Sign Worried About Running Out of Food in the Last Year: Never true Ran Out of Food in the Last Year: Not on file Transportation Needs: No Transportation Needs (12/17/2024) Transportation Lack of Transportation (Medical): No Lack of Transportation (Non-Medical): Not on file Physical Activity: Insufficiently Active (06/30/2023) Received from [facility] Exercise Vital Sign Days of Exercise per Week: 3 days Minutes of Exercise per Session: 10 min Stress: Stress Concern Present (06/30/2023) Received from [facility] [place] [facility] Occupational Health - Occupational Stress Questionnaire Feeling of Stress : Rather much Social Connections: Moderately Integrated (06/30/2023) Received from [facility] Social Connection and Isolation Panel [NHANES] Frequency of Communication with Friends and Family: Twice a week Frequency of Social Gatherings with Friends and Family: Twice a week Attends Islam Services: More than 4 times per year Active Member of Clubs or Organizations: No Attends Club or Organization Meetings: Never Marital Status: Intimate Partner Violence: Unknown (12/17/2024) Humiliation, Afraid, Rape, and Kick questionnaire Fear of Current or Ex-Partner: No Emotionally Abused: Not on file Physically Abused: Not on file Sexually Abused: Not on file Housing Stability: Low Risk (12/17/2024) Housing Stability Vital Sign Unable to Pay for Housing in the Last Year: No Number of Times Moved in the Last Year: 0 Homeless in the Last Year: No Family History[5] Physical Exam: Vital Signs: Blood pressure 122/78, pulse 80, temperature 36.5 ??C (97.7 ??F), temperature source Oral, resp. rate 16, height 1.676 m (5' 6 ), weight 80.3 kg (177 lb), SpO2 96%. Admission Weight: Weight: 80.3 kg (177 lb) Physical Exam Constitutional: Appearance: Normal appearance. HENT: Head: Normocephalic and atraumatic. Pulmonary: Effort: Pulmonary effort is normal. No respiratory distress. Breath sounds: Normal breath sounds. No stridor. No wheezing. Abdominal: General: There is no distension. Palpations: Abdomen is soft. Tenderness: There is abdominal tenderness. There is no guarding. Comments: Mild diffuse tenderness, NG tube in place Skin: General: Skin is warm and dry. Neurological: General: No focal deficit present. Mental Status: She is alert and oriented to person, place, and time. Psychiatric: Mood and Affect: Mood normal. Behavior: Behavior normal. Labs: Lab Results Component Value Date WBC 5.33 12/17/2024 HGB 9.8 (L) 12/17/2024 HCT 29.5 (L) 12/17/2024 MCV 88.6 12/17/2024 PLT 235 12/17/2024 Lab Results Component Value Date CALCIUM 7.8 (L) 12/17/2024 NA 139 12/17/2024 K 3.0 (L) 12/17/2024 CO2 23 12/17/2024 CL 110 (H) 12/17/2024 BUN 13 12/17/2024 CREATININE 0.59 (L) 12/17/2024 No results found for: AMYLASE Lab Results Component Value Date LIPASE 55 11/26/2024 Lab Results Component Value Date ALT 15 12/17/2024 AST 28 12/17/2024 ALKPHOS 58 12/17/2024 Lab Results Component Value Date INR 1.17 (H) 11/03/2024 INR 1.15 (H) 10/30/2024 Imaging: EUS (Upper) w/ EGD Intervention(s): EUS w/ FNA Esophagogastroduodenoscopy (EGD) & Endoscopic Ultrasound Procedure Note Procedure: EGD with endoscopic ultrasound and biopsy Indications: CBD dilation with an MRCP that was [...] abdominal pain. Sedation: MAC sedation Attending Physician: Braxton Bellamy MD Procedure Details: Informed consent was obtained for the procedure, including sedation. Risks of infection, perforation, hemorrhage, adverse drug reaction, and aspiration were discussed. The patient was placed in the left lateral decubitus position. The patient was monitored continuously with ECG tracing, pulse oximetry, blood pressure monitoring, and direct observation. The gastroscope was inserted into the mouth and advanced under direct vision to jejunum. A careful inspection was made as the gastroscope was withdrawn, including a retroflexed view of the proximal stomach; findings and interventions are described below. The Olympus video radial echoendoscope was then introduced through the mouth down to the esophagus, stomach and into the first and second part of the duodenum with no difficulties. After completing the endosonographic examination the scope was [...] to previous history of gastric bypass surgery. The radial echoendoscope was then withdrawn and the patient tolerated the procedure well and was sent to the recovery room in stable condition. Complications: None Estimated blood loss: Minimal Disposition: Home Condition: stable Impression: Unremarkable examination of the esophagus. Diffuse hyperemia of the gastric pouch. Biopsies were obtained. Unremarkable examination of the gastrojejunal anastomosis site and the jejunum. Unremarkable endosonographic examination of the pancreatic body and tail. The pancreatic head and the distal common [...] removal. Attending Attestation: I performed the procedure. Assessment: Abbey Garcia is a 34 y.o.female with PMH of HTN, HLD, asthma, RICHAR, hypothyroidism, GERD, IBS, fibromyalgia, T2DM, median arcuate syndrome, recurrent GI obstructions and a past surgical history of celiac plexus block and MALS release for median arcuate syndrome, sleeve gastrectomy, cholecystectomy, and appendectomy who presented from an outside facility on 12/17/2024 for partial small bowel obstruction. NG tube placement confirmed with imaging. Patient states that she continues to have abdominal pain in the epigastric area, nausea/vomiting, and abdominal pain. Plan: Correct electrolyte abnormalities Continue with IV fluids NG tube to LWIS Diet: NPO DVT ppx: will hold for now Vilma Galaviz MD General Surgery Resident, PGY-1 12/17/24 [1] Past Medical History: Diagnosis Date Adrenal insufficiency [...] Radiculopathy Sepsis (CMS/HCC) Small bowel obstruction (CMS/HCC) [2] Past Surgical History: Procedure Laterality Date ABDOMINAL SURGERY BARIATRIC SURGERY Tan-en-y CARDIAC CATHETERIZATION CARDIAC CATHETERIZATION 11/02/2024 CENTRAL VENOUS CATHETER INSERTION CENTRAL VENOUS CATHETER REMOVAL CENTRAL VENOUS CATHETER TUNNELED INSERTION SINGLE LUMEN Hodges CHOLECYSTECTOMY ESOPHAGOGASTRODUODENOSCOPY 09/29/2024 UPPER GASTROINTESTINAL ENDOSCOPY 03/10/2024 VASCULAR SURGERY Right right leg blood clot [3] Allergies Allergen Reactions Adhesive Tape-Silicones Other Sensitive to certain adhesive tapes. Redness and itchy. Codeine Nausea And Vomiting Nsaids (Non-Steroidal Anti-Inflammatory Drug) GI intolerance Adhesive Rash [4] Current Facility-Administered Medications: HYDROmorphone (Dilaudid) injection 0.2 mg, 0.2 mg, intravenous, q3h PRN OR HYDROmorphone (Dilaudid) injection 0.4 mg, 0.4 mg, intravenous, q3h PRN, Vilma Galaviz MD ondansetron ODT (Zofran-ODT) disintegrating tablet 4 mg, 4 mg, oral, q8h PRN OR ondansetron HCl(PF) (Zofran) injection 4 mg, 4 mg, intravenous, q6h PRN, Vilma Galaviz MD sodium chloride 0.9 % infusion, 100 mL/hr, intravenous, Continuous, Vilma Galaviz MD, Last Rate: 100mL/hr at 12/17/24 1301, 100 mL/hr at 12/17/24 1301 Insert peripheral IV, , , Once AND Saline lock IV, , , Once AND sodium chloride flush 10 mL, 10 mL, intravenous, q8h PRN, Vilma Galaviz MD [5] Family History Problem Relation Name Age of Onset No Known Problems Mother No Known Problems Father Cosigned by Anne Marie Scott MD at 12/18/2024 5:49 AM EST Associated attestation - Anne Marie Scott MD - 12/18/2024 5:49 AM EST I personally saw this patient on the day of the encounter, performed the paula portion(s) of the service and participated in the management and confirm the resident's documentation. Please note there may be an additional personal documentation from me. documented in this encounter Consult Notes * Dalila Suresh MD - 12/20/2024 3:13 PM ESTAssociated Order(s): IP CONSULT TO GASTROENTEROLOGY Initial Gastroenterology/Hepatology Consultation Note IDENTIFYING DATA PATIENT: Abbey Garcia ADMIT DATE: 12/17/2024 TIME OF EVALUATION: 12/20/2024 3:14 PM Reason for Consult: Chronic malnutrition/malabsorption Admitting Physician: Anne Marie Scott MD HISTORY OF PRESENT ILLNESS Abbey Garcia is a 34 y.o. female with past medical history of essential hypertension, hyperlipidemia, asthma, RICHAR, hypothyroidism, GERD, IBS, fibromyalgia, type 2 diabetes mellitus, s/p cholecystectomy in 2013 , appendectomy, surgical history of celiac plexus block and MALS release (02/2023), sleevegastrectomy with conversion to Tan-en-Y gastric bypass in 2021 due to reflux, s/p PEJ tube who hadrecent diagnostic laparoscopy on 10/07/2023 and underwent gastropexy to secure small bowel to abdominal wall above jejunostomy and exchange of PEJ tube on 11/23/23, presented from an outside facility on 12/17 due to concern for partial small bowel obstruction. Patient reported she started experiencingabdominal pain 2 days before presentation. She also reported associated nausea and vomiting. Patient also stated this is exactly how she felt with previous bowel obstructions. Patient was taken for diagnostic laparoscopy on 12/18, no internal hernia or bowel obstruction was found, Lysis of adhesions performed, jejunostomy site was closed. Patient is postop day 2 today. She reported abdominal pain after starting to eat something solid for breakfast. GI was consulted due to concern for chronic malnutrition/malabsorption. GI HISTORY SUMMARY TABLE Last EGD EUS with EGD 12/14/2024 Unremarkable examination of the esophagus. Diffuse hyperemia of the gastric pouch. Biopsies were obtained. Unremarkable examination of the gastrojejunal anastomosis site and the jejunum. Unremarkable endosonographic examination of the pancreatic body and tail. The pancreatic head and the distal common bile duct could not be visualized due to the history of gastric bypass surgery. Stomach, biopsy: Gastric mucosa with focal erosion. No Helicobacter pylori identified, immunohistochemical stain with control. No intestinal metaplasia, dysplasia or malignancy identified. Last colonoscopy Primary GI physician PAST MEDICAL, [...] needed for mild pain (1-3 pain score). Yes Historical Provider, ALBUTEROL INHL Inhale 90 mcg every 6 (six) hours if needed (SOB or wheezing). Yes Historical Provider, aspirin 81 mg chewable tablet Chew 1 tablet (81 mg) with breakfast for 120 doses. 11/03/24 03/03/25 Yes Ky Barbour MD clopidogrel (Plavix) 75 mg tablet Take 1 tablet (75 mg) by mouth in the morning for 120 doses. 11/03/24 03/03/25 Yes Ky Barbour MD colchicine 0.6 mg tablet Take 0.5 tablets (0.3 mg) by mouth every other day. Do not start before November 14, 2024. 11/14/24 12/17/24 Yes Marky Tavares MD escitalopram (Lexapro) 20 mg tablet Take 20 mg by mouth in the morning. Yes Historical Provider, fentaNYL (Duragesic) 12 mcg/hr Place 1 patch on the skin every 3rd (third) day. Give with 25 mcg patch Yes Historical ProviderMD fentaNYL (Duragesic) 25 mcg/hr Place 1 patch on the skin every 3rd (third) day. Yes Historical Provider, HYDROcodone-acetaminophen ([place]) 5-325 mg tablet Take 2 tablets by mouth every 4 (four) hours if needed. Yes Historical Provider, hydrocortisone (Cortef) 10 mg tablet Take 10 mg by mouth in the morning. Yes Historical Provider, hydrOXYzine HCL (Atarax) 25 mg tablet Take 50 mg by mouth if needed at bedtime. Yes Historical Provider, levothyroxine (Synthroid, Levoxyl) 75 mcg tablet Take 75 mcg by mouth before breakfast. Yes Historical Provider, liothyronine (Cytomel) 5 mcg tablet Take 5 mcg by mouth in the morning. Yes Historical Provider, methocarbamol (Robaxin) 750 mg tablet Take 750 mg by mouth three times daily. Yes Historical Provider, metoclopramide (Reglan) 10 mg tablet Take 1 tablet (10 mg) by mouth if needed in the morning and atbedtime (nausea and vomiting). 11/02/24 12/17/24 Yes Ky Barbour MD metoprolol succinate XL (Toprol-XL) 25 mg 24 hr tablet Take 1 tablet (25 mg) by mouth in the morning for 92 doses. Do not crush or chew. Do not start before November 08, 2024. 11/08/24 02/08/25 Yes Mauricio Garcia MD mirtazapine (Remeron) 45 mg tablet Take 45 mg by mouth at bedtime. Yes Historical Provider, omeprazole (PriLOSEC) [address] capsule Take 40 mg by mouth before breakfast and before evening meal. Do not crush or chew. Yes Historical Provider, prucalopride 2 mg tablet Take 2 mg by mouth in the morning. Yes Historical Provider, ranolazine (Ranexa) 500 mg 12 hr tablet Take 1 tablet (500 mg) by mouth two times daily for 189 doses. Do not crush, chew, or split. 11/13/24 02/16/25 Yes Marky Tavares MD rosuvastatin (Crestor) 40 mg tablet Take 1 tablet (40 mg) by mouth at bedtime for 99 doses. 11/08/2511 Yes Mauricio Garcia MD topiramate (Topamax) 100 mg tablet Take 100 mg by mouth two times daily. Yes Historical Provider, traMADol (Ultram) 50 mg tablet Take 50 mg by mouth every 6 (six) hours if needed. Yes Historical Provider, traZODone (Desyrel) 100 mg tablet Take 100 mg by mouth at bedtime. Yes Historical Provider, verapamil (Calan) 40 mg tablet Take 1 tablet (40 mg) by mouth every 8 (eight) hours for 287 doses. 11/07/24 02/11/25 Yes Mauricio Garcia MD naloxone (Narcan) 0.4 mg/mL injection Infuse 1 mL (0.4 mg) into a venous catheter if needed for opioid reversal. 11/13/24 12/13/24 Marky Tavares MD sucralfate (Carafate) 1 gram tablet Take 1 g by mouth before breakfast, before lunch, before evening meal, and at bedtime. Patient not taking: Reported on 12/17/2024 Historical Provider, Current Medications: acetaminophen, 650 mg, oral, q6h TANIA aprepitant, 40 mg, oral, Daily aspirin, 81 mg, oral, Daily with breakfast clopidogrel, 75 mg, oral, Daily colchicine, 0.3 mg, oral, Every other day enoxaparin, 40 mg, subcutaneous, Daily escitalopram, 20 mg, oral, Daily fentaNYL, 1 patch, transdermal, q72h And fentaNYL, 1 patch, transdermal, q72h hydrocortisone, 10 mg, oral, Daily insulin lispro, 0-10 Units, subcutaneous, q6h TANIA levothyroxine, 75 mcg, oral, Daily before breakfast liothyronine, 5 mcg, oral, Daily methocarbamol, 750 mg, oral, TID metoprolol succinate XL, 25 mg, oral, Daily mirtazapine, 45 mg, oral, Nightly pantoprazole, 40 mg, oral, Daily ranolazine, 500 mg, oral, BID rosuvastatin, 40 mg, oral, Nightly scopolamine, 1 patch, transdermal, q72h traZODone, 100 mg, oral, Nightly PRNs: glucose, 24 g, q15 min PRN Or dextrose 50 % in water (D50W), 25 g, q15 min PRN diphenhydrAMINE, 50 mg, q6h PRN HYDROcodone-acetaminophen, 2 tablet, q4h PRN HYDROmorphone, 0.3 mg, q3h PRN hydrOXYzine HCL, 50 mg, Nightly PRN ondansetron ODT, 4 mg, q8h PRN Or ondansetron, 4 mg, q6h PRN ondansetron, 4 mg, Once PRN sodium chloride, 10 mL, q8h PRN traMADol, 50 mg, q6h PRN REVIEW OF SYSTEMS See HPI, otherwise ROS negative as below CONSTITUTIONAL: negative HEENT: negative RESPIRATORY: negative CARDIOVASCULAR: negative GASTROINTESTINAL: as in HPI GENITOURINARY: negative OBJECTIVE DATA Vitals: BP 104/63 Pulse 64 Temp 36.6 ??C (97.9 ??F) (Oral) Resp 18 Ht 1.676 m (5' 6 ) Wt 77.6 kg (171 lb 1.2 oz) SpO2 96% BMI 27.61 kg/m?? GEN: Alert and oriented x3, NAD HEENT: Atraumatic, normocephalic CV: Regular rate and rhythm PULM: Breathing comfortably ABD: Soft, non-tender, non-distended NEURO: Moves all 4 extremities spontaneously LABS AND IMAGING CBC: Results from last 7 days Lab Units 12/20/24 1020 12/20/24 0629 12/19/24 0749 WBC AUTO 10*3/uL 3.62* 3.80* 4.84 RBC AUTO 10*6/uL 3.26* 3.32* 3.47* HEMOGLOBIN g/dL 9.6* 9.7* 10.0* HEMATOCRIT % 28.7* 29.3* 29.6* MCV fL 88.0 88.3 85.3 RDW % 15.7* 15.7* 14.7 PLATELETS AUTO 10*3/uL 223 225 225 PT/INR BMP: Results from last 7 days Lab Units 12/20/24 0629 12/19/24 0749 12/17/24 1305 SODIUM mmol/L 141 136 139 POTASSIUM mmol/L 3.7 4.1 3.0* CHLORIDE mmol/L 109* 106 110* BUN mg/dL 11 10 13 CREATININE mg/dL 0.47* 0.44* 0.59* EGFR mL/min/1.73m*2 127.2 129.3 120.5 GLUCOSE mg/dL 82 206* 95 LFTs: Results from last 7 days Lab Units 12/17/24 1305 12/14/24 0740 BILIRUBIN TOTAL mg/dL 0.4 0.3 BILIRUBIN DIRECT mg/dL -- 0.1 ALK PHOS U/L 58 72 AST U/L 28 25 ALT U/L 15 14 ALBUMIN g/dL 3.4* 3.8 TOTAL PROTEIN g/dL 5.4* 6.2 B12/Folate/Iron studies: Lab Results Component Value Date IRON 68 12/20/2024 TIBC 285 12/20/2024 UIBC 217.0 12/20/2024 IRONSAT 24 12/20/2024 Viral Hepatitis No results found for: HEPAIGM , HAV , HEPBSAG , HEPBSAB , HEPBEAB , HEPBIGM , HEPBCAB , HEPBCOREAB , HBVNAT , HCVSCR , HEPCAB , HCVNAT , HCVPCR , HCVTMA Liver workup No results found for: MISAEL , SMOOTHMUSCAB , CERULOPLSM , [id number] , TTGA , IGA , TSH , FREET4 , AFP Pancreatitis Lab Results Component Value Date CALCIUM 8.4 (L) 12/20/2024 IMAGING: ASSESSMENT AND PLAN Abbey Garcia is a 34 y.o. female with past medical history of essential hypertension, hyperlipidemia, asthma, RICHAR, hypothyroidism, GERD, IBS, fibromyalgia, type 2 diabetes mellitus, s/p cholecystectomy in 2013 , appendectomy, surgical history of celiac plexus block and MALS release (02/2023), sleevegastrectomy with conversion to Tan-en-Y gastric bypass in 2021 due to reflux, s/p PEJ tube who haddiagnostic laparoscopy on 10/07/2023 and underwent gastropexy to secure small bowel to abdominal wall above jejunostomy and exchange of PEJ tube on 11/23/23, presented from an outside facility on 12/17 due to concern for partial small bowel obstruction. Patient was taken for diagnostic laparoscopy on 12/18, no internal hernia or bowel obstruction was found, Lysis of adhesions performed, jejunostomy site was closed. GI was consulted due to concern for chronic malnutrition/malabsorption. Assessment Abdominal pain Suspected functional dyspepsia Patient is postop day 2 today. She reported abdominal pain after starting to eat something solid for breakfast. Suspected partial small bowel obstruction S/P diagnostic laparoscopy 12/18 Findings: No internal hernia or bowel obstruction. Both pseudopeterson's space and JJ mesenteric space closed. Inflammation on tan limb/adjacent mesentery immediately proximal to the Jejunojejunostomy. Suspect may be previous volvulus around this lead point. 2-0 Ethibond suture placed to close a tiny mesenteric defect adjacent to this and also to fixate the tan limb. Previous GI workup: [facility] 04/30/20 RESULT: Solid study demonstrates: - 53% gastric retention at 1hr (normal range, 37-90%), - 14% gastric retention at 2hr (normal range, 30-60%), and - 1% gastric retention at 4hr (normal range, 0-10%). There is no evidence of accelerated emptying of gastric contents, with 53% retention at 1hr (rapid emptying is <30% retention at 1hr). EUS with EGD 12/14/2024 - Unremarkable examination of the esophagus. - Diffuse hyperemia of the gastric pouch. Biopsies were obtained. - Unremarkable examination of the gastrojejunal anastomosis site and the jejunum. - Unremarkable endosonographic examination of the pancreatic body and tail. The pancreatic head andthe distal common bile duct could not be visualized due to the history of gastric bypass surgery. History of sleeve gastrectomy with conversion to Tan-en-Y gastric bypass in 2021 due to reflux s/p PEJ tube who had diagnostic laparoscopy on 10/07/2023 and underwent gastropexy to secure small bowel to abdominal wall above jejunostomy and exchange of PEJ tube on 11/23/23, dependent on TPN in past History of celiac plexus block and MALS release (02/2023) S/p cholecystectomy in 2013 History of appendectomy Plan Suspected component of functional dyspepsia to patient's presentation. We will try to rule out a small bowel obstruction, will obtain small bowel follow- through today. Recommend continuing small particle diet If no obstruction found with imaging, will consider starting neuromodulator. GI will continue to follow. This consult will be discussed with attending physician. If you have any questions please feel freeto contact the GI Service. Thank you for allowing us to participate in the care of Abbey Garcia. Gastroenterology 6 am to 4 pm weekdays in house: [phone] 4 pm to 6 am or weekends: Please contact the highwall drill operator to page the fellow contract loader [1] Past Medical History: Diagnosis Date Adrenal insufficiency [...] Radiculopathy Sepsis (CMS/HCC) Small bowel obstruction (CMS/HCC) [2] Past Surgical History: Procedure Laterality Date ABDOMINAL SURGERY BARIATRIC SURGERY Tan-en-y CARDIAC CATHETERIZATION CARDIAC CATHETERIZATION 11/02/2024 CENTRAL VENOUS CATHETER INSERTION CENTRAL VENOUS CATHETER REMOVAL CENTRAL VENOUS CATHETER TUNNELED INSERTION SINGLE LUMEN Hodges CHOLECYSTECTOMY ESOPHAGOGASTRODUODENOSCOPY 09/29/2024 UPPER GASTROINTESTINAL ENDOSCOPY 03/10/2024 VASCULAR SURGERY Right right leg blood clot [3] Family History Problem Relation Name Age of Onset No Known Problems Mother No Known Problems Father [4] Social History Tobacco Use Smoking status: Never Smokeless tobacco: Never Substance Use Topics Alcohol use: Not Currently Drug use: Never [5] Allergies Allergen Reactions Adhesive Tape-Silicones Other Sensitive to certain adhesive tapes. Redness and itchy. Codeine Nausea And Vomiting Nsaids (Non-Steroidal Anti-Inflammatory Drug) GI intolerance Adhesive Rash Cosigned by Aryan Knight MD at 12/20/2024 4:06 PM EST Associated attestation - Aryan Knight MD - 12/20/2024 4:06 PM EST By using the attestations below, the signing [...] additional personal documentation from me. Additional Comments: Patient with a complex medical and surgical history with sleeve gastrectomy and RYGB and MALS release as well as celiac block. She underwent laparoscopy with NAFISA for possible partial obstruction. Shenotes intermittent symptoms when she advances her diet to denser consistency foods and has had imagine more recently concerning for SBO with dilated small bowel loops. She notes no prodrome for her symtpoms which consist of nausea and vomiting with little prodrome and last from a few minutes to hours. She notes baseline constipation however since her last surgery has been having diarrhea. 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 Recommend small particle diet and we can consider a trial of desipramine or imipramine to help withneuromodulation to see if we can get some benefit for her. documented in this encounter Nursing Notes * Tiffani Avitia RN - 12/20/2024 10:00 AM EST HENNY Barbour notified that patient complaining of 10/10 rapid onset of pain after trying to eata little big of omelet. Km at bedside, xray, labs and 1x dose of IV pain meds ordered. documented in this encounter Miscellaneous Notes * Care Plan - Amos Crabtree RN - 12/20/2024 12:34 AM EST Problem: Pain - Adult Goal: [...] maintained or improved Outcome: Progressing Problem: Skin Integrity Goal: LTG_Show no additional skin breakdown Outcome: Progressing Goal: LTG-Decrease in wound size Outcome: Progressing Goal: LTG-Show approproate wound care Outcome: Progressing Goal: LTG-Show approproate wound care Outcome: Progressing Goal: STG-Skin integrity/oral mucus membranes remain intact Outcome: Progressing Goal: STG-Wounds display improvment (i.e Smaller in size, healthy granulation tissue) Outcome: Progressing Goal: STG-Incisions, wounds, drain sites free from signs of infection Outcome: Progressing Goal: STG-Pt/family demonstrates understanding of care plan and preventions of further injury Outcome: Progressing * Care Plan - Allyson Marshall RN - 12/19/2024 1:34 PM EST Daily Case Management Update Multidisciplinary rounds have been completed. Barriers to Discharge: Pending clinical course and improvement in clinical condition. POD 1 of diagnostic laparoscopy, lysis of adhesions, closure of internal hernia, Small bowel follow through-Will consider diet pending results of study. NG removed. Home with [facility] Discharge plan is to return home with home health care when medically ready. Diet: Dietary Orders (From admission, onward) Start Ordered 12/17/24 1219 Diet NPO Diet effective now Comments: No exceptions Question: Reason for NPO: Answer: Bowel Obstruction 12/17/24 1223 Physician Expected Discharge Date: 12/22/2024 Discharge Delays: PT Six Click Score: OT Six Click Score: PT Recommendations: OT Recommendations: New Consults: Consult Orders (From admission, onward) Start Ordered 12/18/24 1650 Inpatient consult to Bariatric Surgery Once Specialty: Bariatrics Provider: (Not yet assigned) Question Answer Comment Consulting Group BARIATRIC SURGERY Reason for Consult? internal hernia obstruction Level of Consultation Consultation and Management 12/18/24 1649 Ancillary Consults (From admission, onward) Start Ordered 12/18/24 1745 Inpatient consult to Social Work Once Comments: Patient is active with [address] Also uses [facility] ([place]) for home TPN needs. Provider: (Not yet assigned) Question Answer Comment Select all services needed for the patient Home Health Types of Home Health Service needed Nursing Home Please indicate your approval for this care by adding your name here: BRIANNA LING 12/18/24 174 * Care Plan - Amos Crabtree RN - 12/18/2024 10:36 PM EST Problem: Pain - Adult Goal: Verbalizes/displays [...] maintained or improved Outcome: Progressing Problem: Skin Integrity Goal: LTG_Show no additional skin breakdown Outcome: Progressing Goal: LTG-Decrease in wound size Outcome: Progressing Goal: LTG-Show approproate wound care Outcome: Progressing Goal: LTG-Show approproate wound care Outcome: Progressing Goal: STG-Skin integrity/oral mucus membranes remain intact Outcome: Progressing Goal: STG-Wounds display improvment (i.e Smaller in size, healthy granulation tissue) Outcome: Progressing Goal: STG-Incisions, wounds, drain sites free from signs of infection Outcome: Progressing Goal: STG-Pt/family demonstrates understanding of care plan and preventions of further injury Outcome: Progressing * Care Plan - Brianna Ling RN - 12/18/2024 8:17 PM EST Daily Case Management Update Multidisciplinary rounds have been completed. Barriers to Discharge: Pending clinical course and improvement in clinical condition. *READMIT; Tx from [facility] for partial bowel obstruction. Began having abd pain, N/V 2-days prior to admit. NGT placed at OSH. [facility] surg eval'd and reviewed CT, noting free fluid and swirling concerning for internal hernia as pt had hx of tan-en-y gastric bypass. Taken to OR this evening for dx lap, poss resection, poss open. From home w/ [facility]. Diet: Dietary Orders (From admission, onward) Start Ordered 12/17/24 1219 Diet NPO Diet effective now Comments: No exceptions Question: Reason for NPO: Answer: Bowel Obstruction 12/17/24 1223 Physician Expected Discharge Date: 12/22/2024 Discharge Delays: PT Six Click Score: OT Six Click Score: PT Recommendations: OT Recommendations: Does patient understand post acute plan of care? Yes Is expected discharge disposition appropriate for patient?: Yes New Consults: Consult Orders (From admission, onward) Start Ordered 12/18/24 1650 Inpatient consult to Bariatric Surgery Once Specialty: Bariatrics Provider: (Not yet assigned) Question Answer Comment Consulting Group BARIATRIC SURGERY Reason for Consult? internal hernia obstruction Level of Consultation Consultation and Management 12/18/24 1649 Ancillary Consults (From admission, onward) Start Ordered 12/18/24 1745 Inpatient consult to Social Work Once Comments: Patient is active with [address] Also uses [facility] ([place]) for home TPN needs. Provider: (Not yet assigned) Question Answer Comment Select all services needed for the patient Home Health Types of Home Health Service needed Nursing Home Please indicate your approval for this care by adding your name here: BRIANNA LING 12/18/241744 * Op Note - Donnie Cesar MD - 12/18/2024 7:08 PM EST LAPAROSCOPY, DIAGNOSTIC, LYSIS, ADHESIONS, CLOSURE OF INTERNAL HERNIA SPACE, LAPAROSCOPIC OperativeNote Date: 12/18/2024 Location: [facility] OR Name: Abbey Garcia, : 1990, Diagnosis Pre-op Diagnosis * Obstructed internal hernia [K45.0] Post-op Diagnosis * Obstructed internal hernia [K45.0] Procedures LAPAROSCOPY, DIAGNOSTIC 73078 - IA LAPS ABD PRTM&OMENTUM DX W/WO SPEC BR/WA SPX LYSIS, ADHESIONS CLOSURE OF INTERNAL HERNIA SPACE, LAPAROSCOPIC Surgeons Primary: Donnie Cesar MD Resident - Assisting: Digna Yun MD Procedure Summary Anesthesia: General ASA: III Estimated Blood Loss: Minimal Drains: NG/OG Tube Nasogastric Right nostril (Active) Site Assessment Clean;Dry;Intact 12/18/24 1202 [REMOVED] Urethral Catheter Double-lumen 16 Fr. (Removed) Staff: Director Of Direct Marketing: Jewell Weems RN Relief Director Of Direct Marketing: Nahed Llanes RN Scrub Person: Celeste Burroughs CST Indications: Abbey Garcia is an 34 y.o. female who is having surgery for Obstructed internal hernia[K45.0]. Procedure Details: The patient was seen in [...] bilateral sequential compression devices The patient was correctly identified before the procedure and informed consent was reviewed. Anesthesia pre-induction timeout was performed with anesthesia staff and surgical team present using the appropriate checklist and verification. The patient was taken to the operating room and placed on the operating table in supine position with a safety belt fastened across the thighs. Preoperative antibiotics was insured to have been given. SCDs were applied and verified to be running. General endotracheal anesthesia was initiated. Appropriate lines were placed. The patient was positioned supine arms out with all appropriate padding and secured to the table. She was prepped and draped in the usual sterile fashion. A second timeout was performed with all members of the surgical and Anesthesia teams present. Varess needle entry was performed at Montero's point in the LUQ. Saline drop test was performed and insufflation with CO2 was initiated. Once the abdomen was adequately insufflated, optical trocar entry was performed with a 5 mm port in the periumbilical region. The entry confirmed intraabdominal insufflation with no signs of any injury to underlying structures underneath entry site or Varess needle site. Varess needle was withdrawn and the rest of the trocars were placed under direct visualization (two more 5 mm ports). The jejunostomy site was noted and appeared intact and adhered to the abdominal wall and appears damián about 50-60 cm downstream on the tan limb. There was minimal to no adhesions present. The tan limb was ran from the pouch to the Jejunojejunostomy and there appears to be mild inflammation wherethe JJ mesenteric defect was closed near the junction of tan limb going into the JJ. There was no significant tan limb dilation proximal or distal to the JJ. The BP limb was decompressed and healthy. The common channel was ran all the way to the cecum with no signs of obstruction or abnormality. The pseudopeterson's defect was evaluated and noted to be well closed. The JJ mesenteic defect was ev aluated and there was one small 1 cm hole and that was closed with a 2-0 Ethibond suture, adjacent to the mild area of inflammation where there may have been volvulus or intussusception around this lead point. The jejunostomy was taken down with sharp scissors and closed with a 3-0 Vicryl figure [facility] [place] suture. Hemostasis was achieved. The abdomen was then desufflated with trocars removed under direct visualization without signs of bleeding. The skin of all port sites was closed with subcuticular 4-0 absorbable suture and dressed with Steri-strips and band-aids. Instrument, sponge, and needle counts were correct at the conclusion of the case. Time-out was performed. Patient was awakened, extubated, and brought to the PACU in stable condition. I was present, scrubbed in, and participated for the entirety of the procedure. Findings: No internal hernia or bowel obstruction. Both pseudopeterson's space and JJ mesenteric space closed. Inflammation on tan limb/adjacent mesentery immediately proximal to the Jejunojejunostomy. Suspect may be previous volvulus around this lead point. 2-0 Ethibond suture placed to close a tiny mesenteric defect adjacent to this and also to fixate the tan limb. Complications: None; patient tolerated the procedure well. Disposition: PACU - hemodynamically stable. Condition: stable Donnie Cesar * Significant Event - Brianna Ling RN - 12/18/2024 5:45 PM EST 12/18/24 1740 Admission Assessment Questions Verify insurance with patient Yes Do you understand medical disease or what brought you into the hospital? Yes Who is your current PCP? Thomas Alas MD Can I schedule a follow up appointment for you at the time of discharge? Yes (Wound prefer appointments between 8:30 am and 3 pm.) Does patient qualify for Complex Care Management Enrollment? Yes Do you understand why you are taking your current medications? Yes Are you taking your medications as prescribed? Yes Did patient provide teach back? No Pharmacy Bedside Delivery Status Interested Does the patient have a patient case coordinator assigned to them through their insurance? No Living Arrangement (Current/Prior to Hospitalization) Private residence;Home health care (Home with family; 2 story home) Does the patient have history of HHC or SNF? Yes (HHC: Active with [facility], Home Infusions: [facility] Assistive Device Other (Comment) (Set up for home TPN) Patient's goal for discharge Home with resumption of HHC services. Was patient reminded that goal for discharge is 11am? No Does the patient have transportation at discharge? Yes Type of Residence Private residence;Home care staff Is PT/OT appropriate? No Is PT/OT ordered? No Is SW consult appropriate? Yes Is SW consult ordered? Yes ([facility] has ordered SW consult for HHC) Do you understand the benefits of MyChart? Yes Were you able to send link and activate MyChart? MyChart already active documented in this encounter Plan of Treatment DateTypeDepartmentCare Team (Latest Contact Info)Hheuxtscetz30/13/2025 3:00 PM ESTOffice Visit [facility] [address] [place] [phone] Donnie Cesar MD [address] [place] [phone] 01/31/2025 11:00 AM ESTOffice Visit [facility] [address] [place] [address] Wali Collins MD [address] [place] [phone] documented as of this encounter Procedures Procedure NamePriorityDate/TimeAssociated DiagnosisCommentsPOCT GLUCOSE METER UNSOLICITED IKJOPNGJlhobar06/06/2025 11:46 AM EST POCT GLUCOSE METER UNSOLICITED DJWHHYJVonxpef37/06/2025 5:59 AM EST NXQDosbcrj56/06/2025 5:11 AM EST BASIC METABOLIC KHPWNLfhfeuf22/06/2025 5:11 AM EST POCT GLUCOSE METER UNSOLICITED NYLPVULXcmbacd60/05/2025 11:27 PM EST POCT GLUCOSE METER UNSOLICITED KCAXQGTXvkzmoc15/05/2025 5:[address] ABDOMEN PELVIS W IV MMAQLNCCAGRZ13/05/2025 2:14 PM EST ECG 12-EMAZILLJ13/05/2025 12:22 PM EST POCT GLUCOSE METER UNSOLICITED PYNUMNUVqponoc08/05/2025 11:44 AM EST XR ABDOMEN 1 XQKKCSUR44/05/2025 10:26 AM EST LACTIC ACID WITH 4 HOUR OGOWAXMQRP64/05/2025 10:20 AM EST SXHMUUA8912/20/2024 10:20 AM EST IRON AND KBUPPwrbums25/05/2025 6:29 AM EST Anemia due to acute blood loss TWMSahjbsw51/05/2025 6:29 AM EST PHOSPHORUSAdd-On12/20/2024 6:29 AM EST BASIC METABOLIC YPGJYWklmxxn08/05/2025 6:29 AM EST POCT GLUCOSE METER UNSOLICITED ZZFZVJFKcftiab07/05/2025 6:17 AM EST POCT GLUCOSE METER UNSOLICITED DLJUBKFYvyycar76/05/2025 12:05 AM EST POCT GLUCOSE METER UNSOLICITED PRRTHATUgcjkrb96/04/2025 5:57 PM EST FL SMALL BOWEL EASXVRUVZN82/04/2025 1:15 PM EST POCT GLUCOSE METER UNSOLICITED RAJOKHXXhsaicl40/04/2025 11:09 AM EST KJVRoxlbqs21/04/2025 7:49 AM EST PHOSPHORUSAdd-On12/19/2024 7:49 AM EST MAGNESIUMAdd-On12/19/2024 7:49 AM EST BASIC METABOLIC SYKAIUjchpge09/04/2025 7:49 AM EST POCT GLUCOSE METER UNSOLICITED ZDHCQNLRsdtkya33/04/2025 6:34 AM EST POCT GLUCOSE METER UNSOLICITED WQLZNEOXbjbjtr40/04/2025 12:06 AM EST REPAIR, HERNIA, TMBIVZHKGDJI75/03/2025 7:08 PM EST Obstructed internal hernia LYSIS, KQGWBHVEV69/03/2025 7:08 PM EST Obstructed internal hernia IA LAPS ABD PRTM&OMENTUM DX W/WO SPEC BR/WA SPX102/18/2024 7:08 PM EST Obstructed internal hernia POCT GLUCOSE METER UNSOLICITED CEBJZJTKhlrjqf07/03/2025 5:47 PM EST XR TRANSFER OF OUTSIDE PRWGXJojuoyr31/03/2025 1:10 PM EST XR TRANSFER OF OUTSIDE EWFXDTavqrki69/03/2025 1:10 PM EST XR TRANSFER OF OUTSIDE NQVATFaedkbe07/03/2025 1:10 PM EST XR TRANSFER OF OUTSIDE UJPIWHrobfpo29/03/2025 1:[address] TRANSFER OF OUTSIDE CEZFGAybhpjs49/03/2025 1:[address] TRANSFER OF OUTSIDE FESIYDwicylv91/03/2025 1:[address] TRANSFER OF OUTSIDE NJTMOXxagvma99/03/2025 1:[address] TRANSFER OF OUTSIDE BSKZWFuzjtxz53/03/2025 1:[address] TRANSFER OF OUTSIDE DRJYXVqszlct31/03/2025 1:10 PM EST NZNTszemno30/02/2025 1:05 PM EST COMPREHENSIVE METABOLIC KHGZFKgpqxgm41/02/2025 1:05 PM EST XR CHEST 1 PVTZAiyxdsz82/02/2025 12:58 PM EST documented in this encounter Results * POCT glucose meter (12/21/2024 11:46 AM EST)ComponentValueRef RangeTest Method Analysis TimePerformed AtPathologist SignatureGlucose [id number] - 105 mg/dL 12/21/2024 12:16 PM [facility])Comment:elacumskySpecimen (Source)Anatomical Location / LateralityCollection Method / VolumeCollection TimeReceived TimeBloodCapillary blood specimen / Lremesg0312/21/2024 11:46 AM EST12/21/2024 12:16 PM EST Narrative [facility] - 12/21/2024 12:16 PM EST Waived Testing in the ED is performed under the ED CLIA certificate #[id number]. Authorizing ProviderResult TypeResult StatusMallorkatarina ROBLERO BLOOD ORDERABLESFinal ResultPerforming OrganizationAddressCity/State/ZIP CodePhone Number [facility] [address] [place] [address] * (ABNORMAL) POCT glucose meter (12/21/2024 5:59 AM EST)ComponentValueRef Range Test MethodAnalysis TimePerformed AtPathologist SignatureGlucose OZC899(H)70 - 105 mg/dL12/21/2024 6:[address] [facility] ([facility])Comment:sgoodma Specimen (Source)Anatomical Location / LateralityCollection Method / Volume Collection TimeReceived TimeBloodCapillary blood specimen / Opijijl0612/21/2024 5:59 AM EST12/21/2024 6:10 AM EST Narrative [facility] ([facility]) - 12/21/2024 6:10 AM EST Waived Testing in the ED is performed under the ED CLIA certificate #[id number]. Authorizing ProviderResult TypeResult StatusMallory Tyler ROBLERO BLOOD ORDERABLESFinal ResultPerforming OrganizationAddressCity/State/ZIP CodePhone Number [facility] ([facility]) [address] [place] [address] * (ABNORMAL) CBC (12/21/2024 5:11 AM EST)ComponentValueRef RangeTest Method Analysis TimePerformed AtPathologist SignatureAuto WBC2.92(L)4.00 - 10.60 10*3/uL12/21/2024 5:[address] [facility] ([facility])RBC3.19(L)3.80 - 5.00 10*6/uL12/21/2024 5:[address] [facility] ([facility])Hemoglobin9.5(L)12.0 - 15.0 g/dL12/21/2024 5:[address] [facility] ([facility])Wasqwtegor93.7(L)36.0 - 45.0 %12/21/2024 5:[address] [facility] ([facility])MCV90.082.0 - 98.0 fL 12/21/2024 5:[address] [facility] ([facility])MCH29.827.0 - 33.0 pg 12/21/2024 5:[address] [facility] ([facility])MCHC33.132.0 - 35.0 g/dL 12/21/2024 5:[address] [facility] ([facility])RDW15.5(H)11.5 - 15.0 % 12/21/2024 5:[address] [facility] ([facility])Xtrevyytr659278 - 400 10*3/uL 12/21/2024 5:[address] [facility] ([facility])Specimen (Source)Anatomical Location / LateralityCollection Method / VolumeCollection TimeReceived Time BloodVenous blood specimen / UnknownExisting Catheter / Glhpduh8112/21/2024 5:11 AM EST12/21/2024 5:34 AM EST Narrative Authorizing ProviderResult TypeResult StatusDajermaine Dowd MDLAB BLOOD ORDERABLES Final ResultPerforming OrganizationAddressCity/State/ZIP CodePhone Number [facility] ([facility]) [address] [place] [address] * (ABNORMAL) Basic metabolic panel (12/21/2024 5:11 AM EST)ComponentValueRef RangeTest MethodAnalysis TimePerformed AtPathologist JzsoapldcChcjio547947 - 145 mmol/L102/21/2024 6:[address] [facility] ([facility])Potassium3.93.5 - 5.1 mmol/L102/21/2024 6:[address] [facility] ([facility])Zgrrbmyl74204 - 107 mmol/L102/21/2024 6:[address] [facility] ([facility])KD43600 - 31 mmol/L 12/21/2024 6:[address] [facility] ([facility])TWG790 - 25 mg/dL12/21/2024 6:[address] [facility] ([facility])Creatinine0.55(L)0.60 - 1.20 mg/dL 12/21/2024 6:[address] [facility] ([facility])Itbopmk741(H)70 - 100 mg/dL 12/21/2024 6:[address] [facility] ([facility])Calcium8.0(L)8.6 - 10.3 mg/dL 12/21/2024 6:[address] [facility] ([facility])Anion Sqg676 - 20 mmol/L 12/21/2024 6:[address] [facility] ([facility])pMAL708.5>60.0 mL/min/1.73m*2 12/21/2024 6:[address] [facility] ([facility])Comment:[facility]???s estimated glomerular filtration rate (eGFR) will [...] not disproportionately affect any one group of individuals.BUN/Creatinine Ratio21.8102/21/2024 6:[address] [facility] ([facility])Specimen (Source)Anatomical Location / LateralityCollection Method / VolumeCollection TimeReceived TimeBloodVenous blood specimen / UnknownExisting Catheter / Kshsonl3312/21/2024 5:11 AM EST12/21/2024 5:34 AM EST Narrative Authorizing ProviderResult TypeResult StatusBenja ROBLERO BLOOD ORDERABLES Final ResultPerforming OrganizationAddressCity/State/ZIP CodePhone Number [facility] ([facility]) [address] [place] [address] * (ABNORMAL) POCT glucose meter (12/20/2024 11:27 PM EST)ComponentValueRef Range Test MethodAnalysis TimePerformed AtPathologist SignatureGlucose XAX496(H)70 - 105 mg/dL12/20/2024 11:37 PM [facility])Comment:sgoodma Specimen (Source)Anatomical Location / LateralityCollection Method / Volume Collection TimeReceived TimeBloodCapillary blood specimen / Dtjzqeq0012/20/2024 11:27 PM EST12/20/2024 11:37 PM EST Narrative [facility]) - 12/20/2024 11:37 PM EST Waived Testing in the ED is performed under the ED CLIA certificate #[id number]. Authorizing ProviderResult TypeResult StatusAnne Marie ROBLERO BLOOD ORDERABLESFinal ResultPerforming OrganizationAddressCity/State/ZIP CodePhone Number [facility]) [address] [place] [address] * (ABNORMAL) POCT glucose meter (12/20/2024 5:39 PM EST)ComponentValueRef Range Test MethodAnalysis TimePerformed AtPathologist SignatureGlucose VVS819(H)70 - 105 mg/dL12/20/2024 5:50 PM [facility] ([place])Comment:nmakras Specimen (Source)Anatomical Location / LateralityCollection Method / Volume Collection TimeReceived TimeBloodCapillary blood specimen / Fwttgfe7012/20/2024 5:39 PM EST12/20/2024 5:50 PM EST Narrative [facility] - 12/20/2024 5:50 PM EST Waived Testing in the ED is performed under the ED CLIA certificate #[id number]. Authorizing ProviderResult TypeResult StatusMallory Tyler ROBLERO BLOOD ORDERABLESFinal ResultPerforming OrganizationAddressCity/State/ZIP CodePhone Number [facility] ([facility]) [address] [place] [address] * CT abdomen pelvis w IV contrast (12/20/2024 2:14 PM EST)Anatomical Region LateralityModalityBody, Pelvis, AbdomenComputed TomographySpecimen (Source) Anatomical Location / LateralityCollection Method / VolumeCollection Time Received Time12/20/2024 2:19 PM EST Impressions 12/20/2024 2:26 PM EST No acute findings and no imaging evidence for bowel obstruction All CT scans at this facility use dose modulation, iterative reconstruction, and/or weight based dosing when appropriate to reduce radiation dose to as low as reasonably achievable. Electronically signed: Rai Crespo. 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 Automated exposure control was utilized. Findings: Excellent bowel opacification of the entire GI tract. No evidence for bowel obstruction. There is sleeve gastrectomy morphology Multiple simple liver cysts are demonstrated. Spleen pancreas adrenal glands and kidneys show no acute findings Bladder unremarkable. 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 Automated exposure control was utilized. Findings: Excellent bowel opacification of the entire GI tract. No evidence forbowel obstruction. There is sleeve gastrectomy morphology Multiple simple liver cysts are demonstrated. Spleen pancreas adrenalglands and kidneys show no acute findings Bladder unremarkable. Air within the bladder presumably due toinstrumentation but best assessed in combination with other clinical data IMPRESSION: No acute findings and no imaging evidence for bowel obstruction All CT scans at this facility use dose modulation, iterativereconstruction, and/or weight based dosing when appropriate to reduce radiation dose to aslow as reasonably achievable. Electronically signed: Rai Crespo. Authorizing ProviderResult TypeResult StatusJamie Km [facility] CT PROCEDURES Final Result * ECG 12 lead (12/20/2024 12:22 PM EST)ComponentValueRef RangeTest Method Analysis TimePerformed AtPathologist SignatureVentricular Wgxj23LLOFN MUSE Atrial Gthp35IGMZY MUSEPR Qefcbzko711mtPN MUSEQRS GERAVHZY16ddZY MUSEQT Ezxfphef540hrWZ MUSEQTC CALCULATION(BAZETT)472msGE MUSEP Vmol05cxsmguxYN MUSE R-Tltm60auruwkqIL MUSET Wave Qwsy69jgspmwvKU MUSESpecimen (Source)Anatomical Location / LateralityCollection Method / VolumeCollection TimeReceived Time 12/20/2024 12:01 PM EST12/20/2024 6:54 PM EST Impressions [facility] - 12/20/2024 6:54 PM EST Normal sinus rhythm Normal ECG When compared with ECG of 26-NOV-2024 19:52, No significant change was found Confirmed by Erlin Geller ([id number]) on 12/20/2024 6:54:54 PM Narrative Procedure Note Erlin Geller MD - 12/20/2024 IMPRESSION: Normal sinus rhythm Normal ECG When compared with ECG of 26-NOV-2024 19:52, No significant change was found Confirmed by Erlin Geller ([id number]) on 12/20/2024 6:54:54 PM Authorizing ProviderResult TypeResult StatusCk Barbour PA-CECG ORDERABLES Final ResultPerforming OrganizationAddressCity/State/ZIP CodePhone Number [facility] * POCT glucose meter (12/20/2024 11:44 AM EST)ComponentValueRef RangeTest Method Analysis TimePerformed AtPathologist SignatureGlucose MOI8068 - 105 mg/dL 12/20/2024 11:55 [facility])Comment:ewbzdie15Askwjdtq (Source)Anatomical Location / LateralityCollection Method / VolumeCollection TimeReceived TimeBloodCapillary blood specimen / Khlxzfz8012/20/2024 11:44 AM EST12/20/2024 11:55 AM EST Narrative [facility] ([facility]) - 12/20/2024 11:55 AM EST Waived Testing in the ED is performed under the ED CLIA certificate #[id number]. Authorizing ProviderResult TypeResult StatusMalzelalem Scott MDLAB BLOOD ORDERABLESFinal ResultPerforming OrganizationAddressCity/State/ZIP CodePhone Number [facility] ([facility]) [address] [place] [address] * XR abdomen 1 view (12/20/2024 10:26 AM EST)Anatomical RegionLateralityModality AbdomenComputed RadiographySpecimen (Source)Anatomical Location / Laterality Collection Method / VolumeCollection TimeReceived Time12/20/2024 10:28 AM EST Impressions 12/20/2024 10:29 AM EST FINDINGS/IMPRESSION: Residual contrast throughout nondistended large bowel extending to the level of the rectum. Overall nonobstructive bowel gas pattern. Epigastric operative changes. Removal of prior gastric drainage tube. Electronically signed: Beltran Brian MD. Narrative 12/20/2024 10:29 AM EST XR ABDOMEN 1 VIEW 12/20/2024 9:57 AM CLINICAL INDICATIONS: Abdominal pain. COMPARISON: 12/19/2024 Procedure Note Beltran Brian MD - 11/05/2025 XR ABDOMEN 1 VIEW 12/20/2024 9:57 AM CLINICAL INDICATIONS: Abdominal pain. COMPARISON: 12/19/2024 IMPRESSION: FINDINGS/IMPRESSION: Residual contrast throughout nondistended large bowel extending to thelevel of the rectum. Overall nonobstructive bowel gas pattern. Epigastric operative changes. Removal of prior gastric drainage tube. Electronically signed: Beltran Brian MD. Authorizing ProviderResult TypeResult Gregory INMAN-CIMG XR PROCEDURES Final Result * Lactic acid with 4 hour reflex (12/20/2024 10:20 AM EST)ComponentValueRef RangeTest MethodAnalysis TimePerformed AtPathologist SignatureLactate1.60.5 - 2.2 mmol/L102/20/2024 11:[address] [facility] ([facility])Specimen (Source) Anatomical Location / LateralityCollection Method / VolumeCollection Time Received TimeBloodVenous blood specimen / UnknownExisting Catheter / Unknown 12/20/2024 10:20 AM EST12/20/2024 10:31 AM EST Narrative Authorizing ProviderResult TypeResult StatusCk Barbour PA-CLAB BLOOD ORDERABLESFinal ResultPerforming OrganizationAddressCity/State/ZIP CodePhone Number [facility] ([facility]) [address] [place] [address] * (ABNORMAL) CBC (12/20/2024 10:20 AM EST)ComponentValueRef RangeTest Method Analysis TimePerformed AtPathologist SignatureAuto WBC3.62(L)4.00 - 10.60 10*3/uL12/20/2024 10:[address] [facility] ([facility])RBC3.26(L)3.80 - 5.00 10*6/uL12/20/2024 10:[address] [facility] ([facility])Hemoglobin9.6(L)12.0 - 15.0 g/dL12/20/2024 10:[address] [facility] ([facility])Ogfggjxorp27.7(L) 36.0 - 45.0 %12/20/2024 10:[address] [facility] ([facility])MCV88.082.0 - 98.0 fL12/20/2024 10:[address] [facility] ([facility])MCH29.427.0 - 33.0 pg 12/20/2024 10:[address] [facility] ([facility])MCHC33.432.0 - 35.0 g/dL 12/20/2024 10:[address] [facility] ([facility])RDW15.7(H)11.5 - 15.0 % 12/20/2024 10:[address] [facility] ([facility])Hrxivikcj017024 - 400 10*3/uL 12/20/2024 10:[address] [facility] ([facility])Specimen (Source)Anatomical Location / LateralityCollection Method / VolumeCollection TimeReceived Time BloodVenous blood specimen / UnknownExisting Catheter / Xlrsssi3112/20/2024 10:20 AM EST12/20/2024 10:38 AM EST Narrative Authorizing ProviderResult TypeResult StatusJamie Km PA-CLAB BLOOD ORDERABLESFinal ResultPerforming OrganizationAddressCity/State/ZIP CodePhone Number [facility] ([facility]) [address] [place] [address] * Iron and TIBC (12/20/2024 6:29 AM EST)ComponentValueRef RangeTest Method Analysis TimePerformed AtPathologist SfebxjytlRlkv8534 - 212 ug/dL12/20/2024 9:[address] [facility] ([facility])COBX941129 - 450 ug/dL12/20/2024 9:[address] [facility] ([facility])Iron Unyfxgesie2518 - 50 %12/20/2024 9:44 AM EST [facility] ([facility])GQGQ384.0155.0 - 355.0 ug/dL12/20/2024 9:44 AM EST [facility] ([facility])Specimen (Source)Anatomical Location / Laterality Collection Method / VolumeCollection TimeReceived TimeBloodVenous blood specimen / UnknownExisting Catheter / Kxjxmdh1212/20/2024 6:29 AM EST12/20/2024 6:29 AM EST Narrative Authorizing ProviderResult TypeResult StatusChrisadalberto ROBLERO BLOOD ORDERABLESFinal ResultPerforming OrganizationAddressCity/State/ZIP CodePhone Number [facility] ([facility]) [address] [place] [address] * Phosphorus (12/20/2024 6:29 AM EST)ComponentValueRef RangeTest MethodAnalysis TimePerformed AtPathologist SignaturePhosphorus2.72.5 - 5.0 mg/dL12/20/2024 6:[address] [facility] ([facility])Specimen (Source)Anatomical Location / LateralityCollection Method / VolumeCollection TimeReceived TimeBloodVenous blood specimen / UnknownExisting Catheter / Iefboii3212/20/2024 6:29 AM EST 12/20/2024 6:29 AM EST Narrative Authorizing ProviderResult TypeResult StatusDajermaine ROBLERO BLOOD ORDERABLES Final ResultPerforming OrganizationAddressCity/State/ZIP CodePhone Number [facility] ([facility]) [address] [place] [address] * (ABNORMAL) CBC (12/20/2024 6:29 AM EST)ComponentValueRef RangeTest Method Analysis TimePerformed AtPathologist SignatureAuto WBC3.80(L)4.00 - 10.60 10*3/uL12/20/2024 6:[address] [facility] ([facility])RBC3.32(L)3.80 - 5.00 10*6/uL12/20/2024 6:[address] [facility] ([facility])Hemoglobin9.7(L)12.0 - 15.0 g/dL12/20/2024 6:[address] [facility] ([facility])Fsbqjmshzc06.3(L)36.0 - 45.0 %12/20/2024 6:[address] [facility] ([facility])MCV88.382.0 - 98.0 fL 12/20/2024 6:[address] [facility] ([facility])MCH29.227.0 - 33.0 pg 12/20/2024 6:[address] [facility] ([facility])MCHC33.132.0 - 35.0 g/dL 12/20/2024 6:[address] [facility] ([facility])RDW15.7(H)11.5 - 15.0 % 12/20/2024 6:[address] [facility] ([facility])Ccgounoha534073 - 400 10*3/uL 12/20/2024 6:[address] [facility] ([facility])Specimen (Source)Anatomical Location / LateralityCollection Method / VolumeCollection TimeReceived Time BloodVenous blood specimen / UnknownExisting Catheter / Nzrujbm4712/20/2024 6:29 AM EST12/20/2024 6:29 AM EST Narrative Authorizing ProviderResult TypeResult StatusDajermaine ROBLERO BLOOD ORDERABLES Final ResultPerforming OrganizationAddressCity/State/ZIP CodePhone Number [facility] ([facility]) [address] [place] [address] * (ABNORMAL) Basic metabolic panel (12/20/2024 6:29 AM EST)ComponentValueRef RangeTest MethodAnalysis TimePerformed AtPathologist BgmnziruuImeacl448263 - 145 mmol/L102/20/2024 6:[address] [facility] ([facility])Potassium3.73.5 - 5.1 mmol/L102/20/2024 6:[address] [facility] ([facility])Viibvtrw824(H)98 - 107 mmol/L102/20/2024 6:[address] [facility] ([facility])ZL25517 - 31 mmol/L 12/20/2024 6:[address] [facility] ([facility])VXJ094 - 25 mg/dL12/20/2024 6:[address] [facility] ([facility])Creatinine0.47(L)0.60 - 1.20 mg/dL 12/20/2024 6:[address] [facility] ([facility])Zpfiyhb7770 - 100 mg/dL 12/20/2024 6:[address] [facility] ([facility])Calcium8.4(L)8.6 - 10.3 mg/dL 12/20/2024 6:[address] [facility] ([facility])Anion Gap87 - 20 mmol/L 12/20/2024 6:[address] [facility] ([facility])uJDS554.2>60.0 mL/min/1.73m*2 12/20/2024 6:[address] [facility] ([facility])Comment:[facility]???s estimated glomerular filtration rate (eGFR) will [...] not disproportionately affect any one group of individuals.BUN/Creatinine Ratio23. 6:[address] [facility] ([facility])Specimen (Source)Anatomical Location / LateralityCollection Method / VolumeCollection TimeReceived TimeBloodVenous blood specimen / UnknownExisting Catheter / Mubvqwf1912/20/2024 6:29 AM EST12/20/2024 6:29 AM EST Narrative Authorizing ProviderResult TypeResult StatusDajermaine ROBLERO BLOOD ORDERABLES Final ResultPerforming OrganizationAddressCity/State/ZIP CodePhone Number [facility]) [address] [place] [address] * POCT glucose meter (12/20/2024 6:17 AM EST)ComponentValueRef RangeTest Method Analysis TimePerformed AtPathologist SignatureGlucose BDN7478 - 105 mg/dL 12/20/2024 6:33 AM [facility])Comment:dullomSpecimen (Source)Anatomical Location / LateralityCollection Method / VolumeCollection TimeReceived TimeBloodCapillary blood specimen / Yoyqkpq9212/20/2024 6:17 AM EST 12/20/2024 6:33 AM EST Narrative [facility]) - 12/20/2024 6:33 AM EST Waived Testing in the ED is performed under the ED CLIA certificate #[id number]. Authorizing ProviderResult TypeResult StatusAnne Marie ROBLERO BLOOD ORDERABLESFinal ResultPerforming OrganizationAddressCity/State/ZIP CodePhone Number [facility]) [address] [place] [address] * POCT glucose meter (12/20/2024 12:05 AM EST)ComponentValueRef RangeTest Method Analysis TimePerformed AtPathologist SignatureGlucose [id number] - 105 mg/dL 12/20/2024 12:[address] [facility] ([facility])Comment:sgoodmaSpecimen (Source)Anatomical Location / LateralityCollection Method / VolumeCollection TimeReceived TimeBloodCapillary blood specimen / Myqvirv7912/20/2024 12:05 AM EST12/20/2024 12:16 AM EST Narrative [facility] ([facility]) - 12/20/2024 12:16 AM EST Waived Testing in the ED is performed under the ED CLIA certificate #[id number]. Authorizing ProviderResult TypeResult StatusAnne Marie ROBLERO BLOOD ORDERABLESFinal ResultPerforming OrganizationAddressCity/State/ZIP CodePhone Number [facility]) [address] [place] [address] * (ABNORMAL) POCT glucose meter (12/19/2024 5:57 PM EST)ComponentValueRef Range Test MethodAnalysis TimePerformed AtPathologist SignatureGlucose DVA958(H)70 - 105 mg/dL12/19/2024 6:[address] [facility] ([facility])Comment:elacumsky Specimen (Source)Anatomical Location / LateralityCollection Method / Volume Collection TimeReceived TimeBloodCapillary blood specimen / Ovripjr8212/19/2024 5:57 PM EST12/19/2024 6:08 PM EST Narrative [facility]) - 12/19/2024 6:08 PM EST Waived Testing in the ED is performed under the ED CLIA certificate #[id number]. Authorizing ProviderResult TypeResult StatusAnne Marie ROBLERO BLOOD ORDERABLESFinal ResultPerforming OrganizationAddressCity/State/ZIP CodePhone Number [facility]) [address] [place] [address] * FL small bowel series (12/19/2024 1:15 PM EST)Anatomical RegionLaterality ModalityBodyComputed RadiographySpecimen (Source)Anatomical Location / LateralityCollection Method / VolumeCollection TimeReceived Time12/19/2024 2:42 PM EST Impressions 12/19/2024 2:43 PM EST Impression: * Contrast seen in the colon at 4 hours compatible with no high-grade or complete small bowel obstruction. Electronically signed: Ty Meyer. Narrative 12/19/2024 2:43 PM EST Report Study: FL SMALL BOWEL SERIES Sign And Symptoms:Abdominal pain. Bowel obstruction. . post op from internal hernia repair Comparison: None. Findings: Basket Machine Operator image demonstrates enteric catheter tip in the stomach with a nonspecific bowel gas pattern. There is contrast seen within the colon at 4 hours compatible with no high-grade or complete small bowel obstruction. Procedure Note Ty Meyer MD - 12/19/2024 Report Study: FL SMALL BOWEL SERIES Sign And Symptoms:Abdominal pain. Bowel obstruction. . post op frominternal hernia repair Comparison: None. Findings: Basket Machine Operator image demonstrates enteric catheter tip in the stomach with anonspecific bowel gas pattern. There is contrast seen within the colon at 4 hourscompatible with no high-grade or complete small bowel obstruction. IMPRESSION: Impression: *Contrast seen in the colon at 4 hours compatible with no high-grade or complete small bowel obstruction. Electronically signed: Ty Meyer. Authorizing ProviderResult TypeResult StatusBenja CALVILLO FLUOROSCOPY PROCEDURESFinal Result * (ABNORMAL) POCT glucose meter (12/19/2024 11:09 AM EST)ComponentValueRef Range Test MethodAnalysis TimePerformed AtPathologist SignatureGlucose ETG592(H)70 - 105 mg/dL12/19/2024 11:[address] [facility] ([facility])Comment:elacumsky Specimen (Source)Anatomical Location / LateralityCollection Method / Volume Collection TimeReceived TimeBloodCapillary blood specimen / Slqxkyw7512/19/2024 11:09 AM EST12/19/2024 11:34 AM EST Narrative [facility]) - 12/19/2024 11:34 AM EST Waived Testing in the ED is performed under the ED CLIA certificate #[id number]. Authorizing ProviderResult TypeResult StatusAnne Marie ROBLERO BLOOD ORDERABLESFinal ResultPerforming OrganizationAddressCity/State/ZIP CodePhone Number [facility] ([facility]) [address] [place] [address] * (ABNORMAL) Phosphorus (12/19/2024 7:49 AM EST)ComponentValueRef RangeTest MethodAnalysis TimePerformed AtPathologist SignaturePhosphorus1.8(L)2.5 - 5.0 mg/dL12/19/2024 9:[address] [facility] ([facility])Specimen (Source) Anatomical Location / LateralityCollection Method / VolumeCollection Time Received TimeBloodVenous blood specimen / UnknownExisting Catheter / Unknown 12/19/2024 7:49 AM EST12/19/2024 8:14 AM EST Narrative Authorizing ProviderResult TypeResult StatusBenja ROBLERO BLOOD ORDERABLES Final ResultPerforming OrganizationAddressCity/State/ZIP CodePhone Number [facility]) [address] [place] [address] * Magnesium (12/19/2024 7:49 AM EST)ComponentValueRef RangeTest MethodAnalysis TimePerformed AtPathologist SignatureMagnesium2.01.9 - 2.7 mg/dL12/19/2024 9:55 AM [facility])Specimen (Source)Anatomical Location / LateralityCollection Method / VolumeCollection TimeReceived TimeBloodVenous blood specimen / UnknownExisting Catheter / Kfyjhqv9612/19/2024 7:49 AM EST 12/19/2024 8:14 AM EST Narrative Authorizing ProviderResult TypeResult StatusBenja ROBLERO BLOOD ORDERABLES Final ResultPerforming OrganizationAddressCity/State/ZIP CodePhone Number [facility]) [address] [place] [address] * (ABNORMAL) CBC (12/19/2024 7:49 AM EST)ComponentValueRef RangeTest Method Analysis TimePerformed AtPathologist SignatureAuto WBC4.844.00 - 10.60 10*3/uL 12/19/2024 8:[address] [facility])RBC3.47(L)3.80 - 5.00 10*6/uL 12/19/2024 8:[address] [facility] ([facility])Voewpwbxfy97.0(L)12.0 - 15.0 g/dL12/19/2024 8:[address] [facility] ([facility])Npmqaxwjlu90.6(L)36.0 - 45.0 %12/19/2024 8:[address] [facility] ([facility])MCV85.382.0 - 98.0 fL 12/19/2024 8:[address] [facility] ([facility])MCH28.827.0 - 33.0 pg 12/19/2024 8:[address] [facility] ([facility])MCHC33.832.0 - 35.0 g/dL 12/19/2024 8:[address] [facility] ([facility])RDW14.711.5 - 15.0 %12/19/2024 8:[address] [facility] ([facility])Lquojsjrw825553 - 400 10*3/uL12/19/2024 8:[address] [facility] ([facility])Specimen (Source)Anatomical Location / LateralityCollection Method / VolumeCollection TimeReceived TimeBloodVenous blood specimen / UnknownExisting Catheter / Usubavl1012/19/2024 7:49 AM EST 12/19/2024 8:15 AM EST Narrative Authorizing ProviderResult TypeResult StatusDaluladi ROBLERO BLOOD ORDERABLES Final ResultPerforming OrganizationAddressCity/State/ZIP CodePhone Number [facility] ([facility]) [address] [place] [address] * (ABNORMAL) Basic metabolic panel (12/19/2024 7:49 AM EST)ComponentValueRef RangeTest MethodAnalysis TimePerformed AtPathologist FykrkkmgqLkvzqy752106 - 145 mmol/L102/19/2024 8:[address] [facility] ([facility])Potassium4.13.5 - 5.1 mmol/L102/19/2024 8:[address] [facility] ([facility])Gzfuzkpt85888 - 107 mmol/L102/19/2024 8:[address] [facility] ([facility])JV09705 - 31 mmol/L 12/19/2024 8:[address] [facility] ([facility])JYN062 - 25 mg/dL12/19/2024 8:[address] [facility] ([facility])Creatinine0.44(L)0.60 - 1.20 mg/dL 12/19/2024 8:[address] [facility] ([facility])Bljbzct219(H)70 - 100 mg/dL 12/19/2024 8:[address] [facility] ([facility])Calcium8.3(L)8.6 - 10.3 mg/dL 12/19/2024 8:[address] [facility] ([facility])Anion Qpp073 - 20 mmol/L 12/19/2024 8:[address] [facility] ([facility])gCEU887.3>60.0 mL/min/1.73m*2 12/19/2024 8:[address] [facility] ([facility])Comment:[facility]???s estimated glomerular filtration rate (eGFR) will [...] not disproportionately affect any one group of individuals.BUN/Creatinine Ratio22.7102/19/2024 8:[address] [facility] ([facility])Specimen (Source)Anatomical Location / LateralityCollection Method / VolumeCollection TimeReceived TimeBloodVenous blood specimen / UnknownExisting Catheter / Oleuauv3612/19/2024 7:49 AM EST12/19/2024 8:14 AM EST Narrative Authorizing ProviderResult TypeResult StatusDajermaine ROBLERO BLOOD ORDERABLES Final ResultPerforming OrganizationAddressCity/State/ZIP CodePhone Number [facility] ([facility]) [address] [place] [address] * (ABNORMAL) POCT glucose meter (12/19/2024 6:34 AM EST)ComponentValueRef Range Test MethodAnalysis TimePerformed AtPathologist SignatureGlucose FLA736(H)70 - 105 mg/dL12/19/2024 6:[address] [facility] ([facility])Comment:dullom Specimen (Source)Anatomical Location / LateralityCollection Method / Volume Collection TimeReceived TimeBloodCapillary blood specimen / Vzbckhc4712/19/2024 6:34 AM EST12/19/2024 6:45 AM EST Narrative [facility] ([facility]) - 12/19/2024 6:45 AM EST Waived Testing in the ED is performed under the ED CLIA certificate #[id number]. Authorizing ProviderResult TypeResult StatusMallorkatarina ROBLERO BLOOD ORDERABLESFinal ResultPerforming OrganizationAddressCity/State/ZIP CodePhone Number [facility] ([facility]) [address] [place] [address] * (ABNORMAL) POCT glucose meter (12/19/2024 12:06 AM EST)ComponentValueRef Range Test MethodAnalysis TimePerformed AtPathologist SignatureGlucose SIZ590(H)70 - 105 mg/dL12/19/2024 12:[address] [facility] ([facility])Comment:dullom Specimen (Source)Anatomical Location / LateralityCollection Method / Volume Collection TimeReceived TimeBlely-bloomenson community hospitalCapillary blood specimen / Cgsdzpm9912/19/2024 12:06 AM EST12/19/2024 12:17 AM EST Narrative [facility] ([facility]) - 12/19/2024 12:17 AM EST Waived Testing in the ED is performed under the ED CLIA certificate #[id number]. Authorizing ProviderResult TypeResult StatusMallorkatarina ROBLERO BLOOD ORDERABLESFinal ResultPerforming OrganizationAddressCity/State/ZIP CodePhone Number [facility]) [address] [place] [address] * POCT glucose meter (12/18/2024 5:47 PM EST)ComponentValueRef RangeTest Method Analysis TimePerformed AtPathologist SignatureGlucose RGR6050 - 105 mg/dL 12/18/2024 5:[address] [facility] ([facility])Comment:[id number] (Source)Anatomical Location / LateralityCollection Method / VolumeCollection TimeReceived TimeBloodCapillary blood specimen / Xgvtocc2912/18/2024 5:47 PM EST 12/18/2024 5:58 PM EST Narrative [facility] ([facility]) - 12/18/2024 5:58 PM EST Waived Testing in the ED is performed under the ED CLIA certificate #[id number]. Authorizing ProviderResult TypeResult Tasia ROBLERO BLOOD ORDERABLESFinal ResultPerforming OrganizationAddressCity/State/ZIP CodePhone Number [facility] ([facility]) [address] [place] [address] * XR transfer of outside films (12/18/2024 1:10 PM EST)Specimen (Source) Anatomical Location / LateralityCollection Method / VolumeCollection Time Received Time Narrative IMAGING - 12/18/2024 1:10 PM EST This order has been auto-finalized and does not contain a result. Authorizing ProviderResult TypeResult Мария Dowd MDIMG XR PROCEDURESFinal ResultPerforming OrganizationAddressCity/State/ZIP CodePhone Number IMAGING * XR transfer of outside films (12/18/2024 1:10 PM EST)Specimen (Source) Anatomical Location / LateralityCollection Method / VolumeCollection Time Received Time Narrative IMAGING - 12/18/2024 1:10 PM EST This order has been auto-finalized and does not contain a result. Authorizing ProviderResult TypeResult StatusBenja Dowd MDIMG XR PROCEDURESFinal ResultPerforming OrganizationAddressCity/State/ZIP CodePhone Number IMAGING * XR transfer of outside films (12/18/2024 1:10 PM EST)Specimen (Source) Anatomical Location / LateralityCollection Method / VolumeCollection Time Received Time Narrative IMAGING - 12/18/2024 1:10 PM EST This order has been auto-finalized and does not contain a result. Authorizing ProviderResult TypeResult StatusBenja Dowd MDIMG XR PROCEDURESFinal ResultPerforming OrganizationAddressCity/State/ZIP CodePhone Number IMAGING * XR transfer of outside films (12/18/2024 1:10 PM EST)Specimen (Source) Anatomical Location / LateralityCollection Method / VolumeCollection Time Received Time Narrative IMAGING - 12/18/2024 1:10 PM EST This order has been auto-finalized and does not contain a result. Authorizing ProviderResult TypeResult Мария Dowd [employer] XR PROCEDURESFinal ResultPerforming OrganizationAddressty/State/ZIP CodePhone Number IMAGING * CT transfer of outside films (12/18/2024 1:10 PM EST)Specimen (Source) Anatomical Location / LateralityCollection Method / VolumeCollection Time Received Time Narrative IMAGING - 12/18/2024 1:10 PM EST This order has been auto-finalized and does not contain a result. Authorizing ProviderIsmaelult TypeResult Мария Dowd [employer] [address] PROCEDURESFinal ResultPerforming OrganizationAddressty/[facility]/ZIP CodePhone Number IMAGING * CT transfer of outside films (12/18/2024 1:10 PM EST)Specimen (Source) Anatomical Location / LateralityCollection Method / VolumeCollection Time Received Time Narrative IMAGING - 12/18/2024 1:10 PM EST This order has been auto-finalized and does not contain a result. Authorizing ProviderResult TypeResult Мария Dowd [address] [address] PROCEDURESFinal ResultPerforming OrganizationAddBucktail Medical Centerty/State/ZIP CodePhone Number IMAGING * CT transfer of outside films (12/18/2024 1:10 PM EST)Specimen (Source) Anatomical Location / LateralityCollection Method / VolumeCollection Time Received Time Narrative IMAGING - 12/18/2024 1:10 PM EST This order has been auto-finalized and does not contain a result. Authorizing ProviderResult TypeResult StatusBenja Dowd [address] [address] PROCEDURESFinal ResultPerforming OrganizationAddressCity/State/ZIP CodePhone Number IMAGING * CT transfer of outside films (12/18/2024 1:10 PM EST)Specimen (Source) Anatomical Location / LateralityCollection Method / VolumeCollection Time Received Time Narrative IMAGING - 12/18/2024 1:10 PM EST This order has been auto-finalized and does not contain a result. Authorizing ProviderResult TypeResult StatusDajermaine Dowd [employer] [address] PROCEDURESFinal ResultPerforming OrganizationAddressCity/State/ZIP CodePhone Number IMAGING * CT transfer of outside films (12/18/2024 1:10 PM EST)Specimen (Source) Anatomical Location / LateralityCollection Method / VolumeCollection Time Received Time Narrative IMAGING - 12/18/2024 1:10 PM EST This order has been auto-finalized and does not contain a result. Authorizing ProviderResult TypeResult StatusBenaj Dowd MDH[facility] PROCEDURESFinal ResultPerforming OrganizationAddressCity/State/ZIP CodePhone Number IMAGING * (ABNORMAL) Comprehensive metabolic panel (12/17/2024 1:05 PM EST)Component ValueRef RangeTest MethodAnalysis TimePerformed AtPathologist SignatureSodium 973050 - 145 mmol/L102/17/2024 1:[address] [facility] ([facility])Potassium 3.0(L)3.5 - 5.1 mmol/L102/17/2024 1:[address] [facility] ([facility])Chloride 110(H)98 - 107 mmol/L102/17/2024 1:[address] [facility] ([facility])[id number] - 31 mmol/L102/17/2024 1:[address] [facility] ([facility])Anion Gap97 - 20 mmol/L102/17/2024 1:[address] [facility] ([facility])MPC677 - 25 mg/dL 12/17/2024 1:[address] [facility] ([facility])Creatinine0.59(L)0.60 - 1.20 mg/dL12/17/2024 1:[address] [facility] ([facility])BUN/Creatinine Ratio22.0 12/17/2024 1:[address] [facility] ([facility])Khhjhrk1608 - 100 mg/dL 12/17/2024 1:[address] [facility] ([facility])Calcium7.8(L)8.6 - 10.3 mg/dL 12/17/2024 1:[address] [facility] ([facility])PEG4805 - 39 U/L102/17/2024 1:[address] [facility] ([facility])ALT (SGPT)157 - 52 U/L102/17/2024 1:[address] [facility] ([facility])Alkaline Xlkytopwnnt1152 - 104 U/L102/17/2024 1:[address] [facility] ([facility])Total Protein5.4(L)6.0 - 8.3 g/dL12/17/2024 1:[address] [facility] ([facility])Albumin3.4(L)3.5 - 5.7 g/dL12/17/2024 1:[address] [facility] ([facility])Total Bilirubin0.40.3 - 1.0 mg/dL 12/17/2024 1:[address] [facility] ([facility])pVWB762.5>60.0 mL/min/1.73m*2 12/17/2024 1:[address] [facility] ([facility])Comment:[facility]???s estimated glomerular filtration rate (eGFR) will [...] disproportionately affect any one group of individuals.Specimen (Source)Anatomical Location / LateralityCollection Method / VolumeCollection TimeReceived TimeBloodVenous blood specimen / Unknown Existing Catheter / Tsotdwo8712/17/2024 1:05 PM EST12/17/2024 1:29 PM EST Narrative Authorizing ProviderResult TypeResult StatusMallory Tyler ROBLERO BLOOD ORDERABLESFinal ResultPerforming OrganizationAddressCity/State/ZIP CodePhone Number [facility] ([facility]) [address] [place] [address] * (ABNORMAL) CBC (12/17/2024 1:05 PM EST)ComponentValueRef RangeTest Method Analysis TimePerformed AtPathologist SignatureAuto WBC5.334.00 - 10.60 10*3/uL 12/17/2024 1:[address] [facility] ([facility])RBC3.33(L)3.80 - 5.00 10*6/uL 12/17/2024 1:[address] [facility] ([facility])Hemoglobin9.8(L)12.0 - 15.0 g/dL12/17/2024 1:[address] [facility] ([facility])Ypahnjdlvz36.5(L)36.0 - 45.0 %12/17/2024 1:[address] [facility] ([facility])MCV88.682.0 - 98.0 fL 12/17/2024 1:[address] [facility] ([facility])MCH29.427.0 - 33.0 pg 12/17/2024 1:[address] [facility] ([facility])MCHC33.232.0 - 35.0 g/dL 12/17/2024 1:[address] [facility] ([facility])RDW15.5(H)11.5 - 15.0 % 12/17/2024 1:[address] [facility] ([facility])Pkwqecmkz354981 - 400 10*3/uL 12/17/2024 1:[address] [facility] ([facility])Specimen (Source)Anatomical Location / LateralityCollection Method / VolumeCollection TimeReceived Time BloodVenous blood specimen / UnknownExisting Catheter / Gnaeado0312/17/2024 1:05 PM EST12/17/2024 1:36 PM EST Narrative Authorizing ProviderResult TypeResult StatusMallory Tyler ROBLERO BLOOD ORDERABLESFinal ResultPerforming OrganizationAddressCity/State/ZIP CodePhone Number [facility] ([facility]) [address] [facility] [place] [address] * XR chest 1 view (12/17/2024 12:58 PM EST)Anatomical RegionLateralityModality ChestComputed RadiographySpecimen (Source)Anatomical Location / Laterality Collection Method / VolumeCollection TimeReceived Time12/17/2024 2:25 PM EST Impressions 12/17/2024 2:31 PM EST Impression: * No consolidation or pleural fluid. No acute findings. * Enteric tube placed in the stomach. Central line unchanged. Electronically signed: Rai Crespo. Narrative 12/17/2024 2:31 PM EST Single view chest History: NG tube Comparison: November 26 Procedure Note Rai Crespo MD - 12/17/2024 Single view chest History: NG tube Comparison: November 26 IMPRESSION: Impression: *No consolidation or pleural fluid. No acute findings. *Enteric tube placed in the stomach. Central line unchanged. Electronically signed: Rai Crespo. Authorizing ProviderResult TypeResult StatusMallorkatarina Scott MDIM XR PROCEDURES Final Result documented in this encounter Visit Diagnoses Diagnosis Partial bowel obstruction (CMS/HCC)- Primary Partial bowel obstruction (CMS/HCC) Partial intestinal obstruction, unspecified cause (CMS/HCC) Obstructed internal hernia Anemia due to acute blood loss Acute posthemorrhagic anemia Obstructed internal hernia documented in this encounter Admitting Diagnoses Diagnosis Partial bowel obstruction (CMS/HCC) Obstructed internal hernia documented in this encounter Administered Medications Medication OrderMAR ActionAction DateDoseRateSite acetaminophen (Tylenol) tablet 650 mg 650 mg, oral, Every 6 hours scheduled, First dose on Wed12/19/24 at 1800, For 99 days Given12/19/2024 6:28 PM KKY534 mg Adult Cyclic 3-in-1 TPN 2,500 mL, intravenous, at 22.5-180.2 mL/hr, Administer over 16 Hours, Cyclic TPN, Starting on Wed12/18/24 at 2200, For 24 hours, Pt receives TPN MWF only Use a 1.2 micron filter. Start rate at 180.2 mL/hr for 13 hours. Decrease rate to 90.1 mL/hr for 1 hours. Decrease rate to 45 mL/hr for 1 hours. Decrease rate to 22.5 mL/hr for 1 hours, then stop. 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 Start rate at 180.2 mL/hr for 13 hours. Decrease rate to 90.1 mL/hr for 1 hours. Decrease rate to 45 mL/hr for 1 hours. Decrease rate to 22.5 mL/hr for 1 hours, then stop. 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 Rate/Dose Wtuolw2512/21/2024 1:09 PM EST22.5 mL/hrRate/Dose Jojkns9912/21/2024 12:09 PM EST45 mL/hrRate/Dose Txmxqa2112/21/2024 11:09 AM EST90.1 mL/hr aprepitant (Emend) capsule 40 mg 40 mg, oral, Daily, First dose on Wed12/18/24 at 1845, For 99 days Given12/21/2024 7:44 AM EST40 ykSkvkt4312/20/2024 8:14 AM EST40 vzMxrek1512/18/2024 6:43 PM EST40 mg aspirin chewable tablet 81 mg 81 mg, oral, Daily with breakfast, First dose on Wed12/20/24 at 0800, For 99 days Given12/21/2024 7:44 AM EST81 wnQuzsc5112/20/2024 8:14 AM EST81 mg clopidogrel (Plavix) tablet 75 mg 75 mg, oral, Daily, First dose on Wed12/19/24 at 1800, For 99 days Given12/21/2024 7:44 AM EST75 rkYgohg4412/20/2024 8:14 AM EST75 mfIissx3612/19/2024 6:27 PM EST75 mg colchicine split tablet 0.3 mg 0.3 mg, oral, Every other day, First dose on Wed12/20/24 at 1000, For 99 days Given12/20/2024 8:14 AM EST0.3 mg dextrose 50 % in water (D50W) syringe 25 g 25 g, intravenous, Every 15 min PRN, capillary blood glucose < 70 mg/dL and patient unable to take oral and has IV access, Starting on Wed12/19/24 at 1738, For 99 days, - Recheck blood glucose [...] feeding bolus) diphenhydrAMINE (BENADryl) injection 12.5 mg 12.5 mg, intravenous, Every 15 min PRN, itching, Starting on Wed12/18/24 at 2030, For 2 doses, Recovery (only) Given12/18/2024 8:46 PM EST12.5 mg diphenhydrAMINE (BENADryl) injection 25 mg 25 mg, intravenous, Every 6 hours PRN, itching, Starting on Wed12/17/24 at 1427, For 99 days Given12/19/2024 6:04 AM EST25 dyTkxox9812/18/2024 11:59 PM EST25 ryAgnoo6912/18/2024 11:50 AM EST25 mg diphenhydrAMINE (BENADryl) injection 50 mg 50 mg, intravenous, Every 6 hours PRN, itching, Starting on Wed12/19/24 at 1209, For 97 days Given12/21/2024 9:48 AM EST50 nyGpoai0912/21/2024 3:35 AM EST50 nbYrzcw5812/20/2024 8:43 PM EST50 mg enoxaparin (Lovenox) syringe 40 mg 40 mg, subcutaneous, Daily, First dose on Wed12/19/24 at 1800, For 99 days Given12/20/2024 8:43 PM EST40 mgLeft Lower QabhvhsJinrf10/04/2025 6:25 PM EST40 mgLeft Lower Abdomen escitalopram (Lexapro) tablet 20 mg 20 mg, oral, Daily, First dose on Wed12/19/24 at 1215, For 99 days Given12/21/2024 7:44 AM EST20 eaPyuwd9512/20/2024 8:14 AM EST20 kjNhrfa8812/19/2024 12:40 PM EST20 mg fentaNYL (Duragesic) 12 mcg/hr 1 patch 1 patch, transdermal, Administer over 72 Hours, Every 72 hours, First dose on Wed12/19/24 at 1745, For 99 days, Do not cut patch. [...] policy. Wash hands immediately after handling patch. fentaNYL (Duragesic) 12 mcg/hr 1 patch 1 patch, transdermal, Administer over 72 Hours, Every 72 hours, First dose on Wed12/19/24 at 1215, For 99 days, Do not cut patch. [...] Wash hands immediately after handling patch. Medication Bsfataa9312/19/2024 2:05 PM EST1 patchUpper Back fentaNYL (Duragesic) 25 mcg/hr 1 patch 1 patch, transdermal, Administer over 72 Hours, Every 72 hours, First dose on Wed12/19/24 at 1745, For 99 days, Do not cut patch. [...] policy. Wash hands immediately after handling patch. fentaNYL (Duragesic) 25 mcg/hr 1 patch 1 patch, transdermal, Administer over 72 Hours, Every 72 hours, First dose on Wed12/19/24 at 1530, For 96 days, Do not cut patch. Rotate site [...] Wash hands immediately after handling patch. Medication Axjeinz8212/19/2024 4:58 PM EST1 patchUpper Back glucose chewable tablet 24 g 24 g, oral, Every 15 min PRN, capillary blood glucose < 70 mg/dL and patient alert and eating, Starting on Wed12/19/24 at 1738, For 99 days, - Recheck blood glucose [...] IV fluids or tube feeding bolus) HYDROcodone-acetaminophen ([place]eter) 5-325 mg per tablet 2 tablet 2 tablet, oral, Every 4 hours PRN, moderate pain (4-7 pain score), Starting on Wed12/19/24 at 1206,For 99 days Given12/19/2024 2:11 PM EST2 tablets HYDROcodone-acetaminophen ([place]) 5-325 mg per tablet 2 tablet 2 tablet, oral, Every 4 hours PRN, severe pain (8-10 pain score), Starting on Wed12/19/24 at 1755, For 99 days Given12/21/2024 12:26 PM EST2 wifvsaaXnitn68/06/2025 7:47 AM EST2 tabletsGiven 12/21/2024 3:36 AM EST2 tablets hydrocortisone (Cortef) tablet 10 mg 10 mg, oral, Daily, First dose on Wed12/19/24 at 1800, For 99 days Given12/21/2024 7:44 AM EST10 bkDbeub8612/20/2024 8:14 AM EST10 skPbtld3112/19/2024 6:27 PM EST10 mg HYDROmorphone (Dilaudid) injection 0.3 mg 0.3 mg, intravenous, Every 3 hours PRN, severe pain (8-10 pain score), breakthrough, Starting on Wed12/20/24 at 1141, For 99 days Given12/21/2024 9:47 AM EST0.3 xiFuqxc8312/21/2024 6:09 AM EST0.3 mgGiven 12/20/2024 11:24 PM EST0.3 mg HYDROmorphone (Dilaudid) injection 0.4 mg 0.4 mg, intravenous, Every 3 hours PRN, severe pain (8-10 pain score), Starting on Wed12/17/24 at 1229, For 99 days Given12/19/2024 3:57 PM EST0.4 peDqsmw1312/19/2024 12:42 PM EST0.4 mgGiven 12/19/2024 9:36 AM EST0.4 mg HYDROmorphone (Dilaudid) injection 0.4 mg 0.4 mg, intravenous, Every 15 min PRN, severe pain (8-10 pain score), First choice for severe pain (8-10), Starting on Wed12/18/24 at 2030, For 4 doses, Recovery (only) Given12/18/2024 9:26 PM EST0.4 msGeite8012/18/2024 9:08 PM EST0.4 mgGiven 12/18/2024 8:47 PM EST0.4 mg HYDROmorphone (Dilaudid) injection 0.4 mg 0.4 mg, intravenous, Once, On Wed12/20/24 at 0945, For 1 dose Given12/20/2024 9:55 AM EST0.4 mg hydrOXYzine (Vistaril) injection 25 mg 25 mg, intramuscular, Every 6 hours PRN, anxiety, Starting on Wed12/17/24 at 1953 Given12/19/2024 4:18 AM EST25 mgLeft SzhbxjfQbelk62/03/2025 3:04 PM EST25 mg ApnxyPrtwk66/03/2025 2:19 AM EST25 mgLeft Anterior Thigh insulin lispro (HumaLOG) injection 0-10 Units 0-10 Units, subcutaneous, Every 6 hours scheduled, First dose on Wed12/19/24 at 1800, For 99 days, BG less than 110 instructions: Hold Insulin. If BS below 70, implement hypoglycemia orders., BG 110-150: 0, BG 151-200: 2, BG 201-250: 4, BG 251-300: 6, BG 301-350: 8, BG 351-400: 10, BG greater than 400 instructions: call Physician Given12/20/2024 11:45 PM EST4 UnitsLeft Lower KvgoqptIxwdy53/05/2025 5:56 PM EST 2 UnitsLeft Lower IzmzilvNeyng62/04/2025 6:26 PM EST2 UnitsRight Lower Abdomen iohexol (OMNIPaque) 300 mg iodine/mL injection 30 mL 30 mL, oral, Once in imaging, Starting on Wed12/20/24 at 1110, For 1 dose, Split 30 ml bottle into 2 cups (15ml in each) Fill each cup with 300 ml of clear fluid (non-carbonated) Give each cup [address] [phone] when starting first cup Given12/20/2024 11:51 AM EST30 mL iohexol (OMNIPaque) 350 mg iodine/mL injection 100 mL 100 mL, intravenous, Once in imaging, Starting on Wed12/20/24 at 1404, For 1 dose Given12/20/2024 2:05 PM LWS755 mL iohexol (OMNIPaque) 350 mg iodine/mL injection 200 mL 200 mL, nasogastric tube, Once in imaging, Starting on Wed12/19/24 at 0901, For 1 day Given12/19/2024 9:03 AM KAM021 mL levothyroxine (Synthroid, Levoxyl) tablet 75 mcg 75 mcg, oral, Daily before breakfast, First dose on Wed12/20/24 at 0730, For 99 days Given12/21/2024 6:09 AM EST75 hpoFjrju35/05/2025 6:18 AM EST75 mcg liothyronine (Cytomel) tablet 5 mcg 5 mcg, oral, Daily, First dose on Wed12/19/24 at 1800, For 99 days Given12/21/2024 7:44 AM EST5 qbhYcgnr89/05/2025 8:14 AM EST5 kdrQivwz70/04/2025 6:27 PM EST5 mcg methocarbamol (Robaxin) tablet 750 mg 750 mg, oral, 3 times daily, First dose on Wed12/19/24 at 1215, For 99 days Given12/21/2024 7:44 AM BUN720 oqZufcg3412/20/2024 10:08 PM RGT398 mgGiven 12/20/2024 4:11 PM LJH530 mg metoprolol succinate XL (Toprol-XL) 24 hr tablet 25 mg 25 mg, oral, Daily, First dose on Wed12/20/24 at 1000, For 99 days, Do not crush or chew. Given12/21/2024 7:44 AM EST25 mg metroNIDAZOLE in NaCl (iso-os) (Flagyl) IVPB 500 mg 500 mg, intravenous, at 100 mL/hr, Administer over 60 Minutes, Once, On Wed12/18/24 at 1830, For 1 dose, Preprocedure, premix bag, Suspected Indication (Select all that apply): Surgical Prophylaxis New Bag12/18/2024 7:03 PM QSI254 mg100 mL/hr mirtazapine (Remeron) tablet 45 mg 45 mg, oral, Nightly, First dose on Wed12/19/24 at 2200, For 99 days Given12/20/2024 10:08 PM EST45 kxDxbni5012/19/2024 8:10 PM EST45 mg ondansetron HCl (PF) (Zofran) injection 4 mg 4 mg, intravenous, Every 6 hours PRN, nausea, vomiting, Starting on Wed12/17/24 at 1221, For 99 days, Give IV if patient is unable to take orally. Administer as an IV push over 2 to 5 minutes. Given12/20/2024 2:41 PM EST4 ikZcrqu8312/20/2024 9:36 AM EST4 ueJtfzb5412/19/2024 9:36 AM EST4 mg ondansetron HCl (PF) (Zofran) injection 4 mg 4 mg, intravenous, Once as needed, nausea, vomiting, use if prochlorperazine ineffective, Starting on Wed12/18/24 at 2030, For 1 dose, Recovery & On Unit, Use prochlorperazine first and then use ondansetron if prochlorperazine is ineffective. Administer as an IV push over 2 to 5 minutes. ondansetron ODT (Zofran-ODT) disintegrating tablet 4 mg 4 mg, oral, Every 8 hours PRN, nausea, vomiting, Starting on Wed12/17/24 at 1221, For 99 days pantoprazole (ProtoNix) EC tablet 40 mg 40 mg, oral, Daily at 7am, First dose on Wed12/19/24 at 1800, Do not crush, chew, or split., Indication: GERD Given12/21/2024 6:09 AM EST40 dcVesoo2712/20/2024 6:18 AM EST40 mg potassium chloride IVPB 10 mEq 10 mEq, intravenous, at 100 mL/hr, Administer over 1 Hours, Every 1 hour, First dose on Wed12/17/24at 1500, For 6 doses, Serum K 3-3.4 (total dose 60 mEq over 6 hours) New 12/17/2024 9:04 PM EST10 mEg800 mL/hrNew 12/17/2024 7:00 PM EST10 mEq 100 mL/hrNew 12/17/2024 6:51 PM EST10 hJr785 mL/hr prochlorperazine (Compazine) injection 5 mg 5 mg, intravenous, Once as needed, nausea, vomiting, Starting on Wed12/18/24 at 2030, For 1 dose, Recovery & On Unit, Use prochlorperazine first and then use ondansetron if prochlorperazine is ineffective. Given12/18/2024 8:45 PM EST5 mg ranolazine (Ranexa) 12 hr tablet 500 mg 500 mg, oral, 2 times daily, First dose on Wed12/19/24 at 2200, For 99 days, Do not crush, chew, orsplit. Given12/21/2024 7:44 AM [id number] glDyzke9612/20/2024 10:07 PM ROO061 mgGiven 12/20/2024 8:14 AM ODH189 mg rosuvastatin (Crestor) tablet 40 mg 40 mg, oral, Nightly, First dose on Wed12/19/24 at 2200, For 99 days Given12/20/2024 10:08 PM EST40 izEyljf4012/19/2024 8:10 PM EST40 mg scopolamine (Transderm-Scop) patch 1 patch 1 patch, transdermal, Administer over 72 Hours, Every 72 hours, First dose on Wed12/18/24 at 1845, For 99 days, Apply to hairless area of skin behind the ear. Medication Zlyxzex2312/18/2024 6:43 PM EST1 patchBehind Left Ear sodium chloride 0.9 % infusion 100 mL/hr, intravenous, Continuous, Starting on 12/17/24 at 1230, For 1 day Given12/18/2024 8:22 PM TGE025 mLContinued by Dpftskqpte38/03/2025 7:00 PM EST 100 mL/hr100 mL/hrNew Bag12/18/2024 3:29 AM HKQ850 mL/hr100 mL/hr sodium chloride flush 10 mL 10 mL, intravenous, Every 8 hours PRN, line care, Starting on Wed12/17/24 at 1217, For 99 days traZODone (Desyrel) tablet 100 mg 100 mg, oral, Nightly, First dose on Wed12/19/24 at 2200, For 99 days Given12/20/2024 10:08 PM XDS122 tpXgbbf2312/19/2024 8:11 PM LOR980 mgdocumented in this encounter Active and Recently Administered Medications Times are shown in EST.Medication Order/ acetaminophen (Tylenol) tablet 650 mg 650 mg, oral, Every 6 hours scheduled, First dose on Wed12/19/24 at 1800, For 99 days * 1828 (Given - Provider: Angelica Casillas RN) * 0000 (Not Given - Provider: Amos Crabtree RN - Reason: Patient/family refused) * 0600 (Not Given - Provider: Amos Crabtree RN - Reason: Order parameters not met - Comment: given atsame time as norco) * 1200 (Not Given - Provider: Tiffani Avitia RN - Reason: Patient/family refused) * 1700 (Not Given - Provider: Tiffani Avitia RN - Reason: Contraindicated - Comment: over daily dose limit) * 0000 (Not Given - Provider: Vani Koehler RN - Reason: Patient/family refused) * 0600 (Not Given - Provider: Vani Koehler RN - Reason: Patient/family refused) * 1200 (Not Given - Provider: Tiffani Avitia RN - Reason: Contraindicated) aprepitant (Emend) capsule 40 mg 40 mg, oral, Daily, First dose on Wed12/18/24 at 1845, For 99 days * 1000 (Not Given - Provider: Tiffani Avitia RN - Reason: NPO - Comment: no exceptions) * 0814 (Given - Provider: Tiffani Avitia RN) * 0744 (Given - Provider: Tiffani Avitia RN) aspirin chewable tablet 81 mg 81 mg, oral, Daily with breakfast, First dose on Wed12/20/24 at 0800, For 99 days * 0814 (Given - Provider: Tiffani Avitia RN) * 0744 (Given - Provider: Tiffani Avitia RN) clopidogrel (Plavix) tablet 75 mg 75 mg, oral, Daily, First dose on Wed12/19/24 at 1800, For 99 days * 1827 (Given - Provider: Angelica Casillas RN) * 0814 (Given - Provider: Tiffani Avitia RN) * 0744 (Given - Provider: Tiffani Avitia RN) colchicine split tablet 0.3 mg 0.3 mg, oral, Every other day, First dose on Wed12/20/24 at 1000, For 99 days * 0814 (Given - Provider: Tiffani Avitia RN) enoxaparin (Lovenox) syringe 40 mg 40 mg, subcutaneous, Daily, First dose on Wed12/19/24 at 1800, For 99 days * 1825 (Given - Provider: Angelica Casillas, DEE) * 2042 (Given - Provider: Vani Koehler RN) escitalopram (Lexapro) tablet 20 mg 20 mg, oral, Daily, First dose on Wed12/19/24 at 1215, For 99 days * 1240 (Given - Provider: Angelica Casillas, DEE) * 0814 (Given - Provider: Tiffani Avitia RN) * 0744 (Given - Provider: Tiffani Avitia RN) fentaNYL (Duragesic) 12 mcg/hr 1 patch(Linked Group 1) 1 patch, transdermal, Administer over 72 Hours, Every 72 hours, First dose on Wed12/19/24 at 1745, For 99 days, Do not cut patch. [...] policy. Wash hands immediately after handling patch. * 1745 (Not Given - Provider: Tiffani Avitia RN - Reason: Other - Comment: see other order) fentaNYL (Duragesic) 12 mcg/hr 1 patch (CANCELED) 1 patch, transdermal, Administer over 72 Hours, Every 72 hours, First dose on Wed12/19/24 at 1215, For 99 days, Do not cut patch. [...] policy. Wash hands immediately after handling patch. * 1405 (Medication Applied - Provider: Angelica Casillas RN) * 1750 (Not Given - Provider: Tiffani Avitia RN - Reason: Other - Comment: Time automatically adjustedfrom order being discontinued) fentaNYL (Duragesic) 25 mcg/hr 1 patch(Linked Group 1) 1 patch, transdermal, Administer over 72 Hours, Every 72 hours, First dose on Wed12/19/24 at 1745, For 99 days, Do not cut patch. [...] policy. Wash hands immediately after handling patch. * 1745 (Not Given - Provider: Tiffani Avitia RN - Reason: Other - Comment: see other order) fentaNYL (Duragesic) 25 mcg/hr 1 patch (CANCELED) 1 patch, transdermal, Administer over 72 Hours, Every 72 hours, First dose on Wed12/19/24 at 1530, For 96 days, Do not cut patch. Rotate site [...] policy. Wash hands immediately after handling patch. * 1658 (Medication Applied - Provider: Angelica Casillas RN) * 1750 (Not Given - Provider: Tiffani Avitia RN - Reason: Other - Comment: Time automatically adjustedfrom order being discontinued) hydrocortisone (Cortef) tablet 10 mg 10 mg, oral, Daily, First dose on Wed12/19/24 at 1800, For 99 days * 1827 (Given - Provider: Angelica Casillas RN) * 0814 (Given - Provider: Tiffani Avitia RN) * 0744 (Given - Provider: Tiffani Avitia, DEE) HYDROmorphone (Dilaudid) injection 0.4 mg (COMPLETED) 0.4 mg, intravenous, Once, On Wed12/20/24 at 0945, For 1 dose * 0955 (Given - Provider: Tiffani Avitia, DEE) insulin lispro (HumaLOG) injection 0-10 Units 0-10 Units, subcutaneous, Every 6 hours scheduled, First dose on Wed12/19/24 at 1800, For 99 days, BG less than 110 instructions: Hold Insulin. If BS below 70, implement hypoglycemia orders., BG 110-150: 0, BG 151-200: 2, BG 201-250: 4, BG 251-300: 6, BG 301-350: 8, BG 351-400: 10, BG greater than 400 instructions: call Physician * 1826 (Given - Provider: Angelica Casillas RN) * 0000 (Not Given - Provider: Amos Crabtree RN - Reason: Order parameters not met) * 0600 (Not Given - Provider: Amos Crabtree RN - Reason: Order parameters not met - Comment: bs 87) * 1200 (Not Given - Provider: Tiffani Avitia RN - Reason: Order parameters not met) * 1756 (Given - Provider: Giovanni Avitia RN) * 2345 (Given - Provider: Vani Koehler, DEE) * 0600 (Not Given - Provider: Vani Koehler RN - Reason: Order parameters not met) * 1200 (Not Given - Provider: Tiffani Avitia RN - Reason: Order parameters not met) iohexol (OMNIPaque) 300 mg iodine/mL injection 30 mL (COMPLETED) 30 mL, oral, Once in imaging, Starting on Wed12/20/24 at 1110, For 1 dose, Split 30 ml bottle into 2 cups (15ml in each) Fill each cup with 300 ml of clear fluid (non-carbonated) Give each cup [address] [phone] when starting first cup * 1151 (Given - Provider: Tiffani Avitia RN) iohexol (OMNIPaque) 350 mg iodine/mL injection 100 mL (COMPLETED) 100 mL, intravenous, Once in imaging, Starting on Wed12/20/24 at 1404, For 1 dose * 1405 (Given - Provider: STEFAN Stevens) iohexol (OMNIPaque) 350 mg iodine/mL injection 200 mL () 200 mL, nasogastric tube, Once in imaging, Starting on Wed12/19/24 at 0901, For 1 day * 0903 (Given - Provider: STEFAN Madsen - Comment: Exp 20 AUG 2027Lot [id number]) levothyroxine (Synthroid, Levoxyl) tablet 75 mcg 75 mcg, oral, Daily before breakfast, First dose on Wed12/20/24 at 0730, For 99 days * 0618 (Given - Provider: Amos Crabtree RN) * 0609 (Given - Provider: Vani Koehler, DEE) liothyronine (Cytomel) tablet 5 mcg 5 mcg, oral, Daily, First dose on Wed12/19/24 at 1800, For 99 days * 1827 (Given - Provider: Angelica Casillas RN) * 0814 (Given - Provider: Tiffani Avitia, DEE) * 0744 (Given - Provider: Tiffani Avitia, DEE) methocarbamol (Robaxin) tablet 750 mg 750 mg, oral, 3 times daily, First dose on Wed12/19/24 at 1215, For 99 days * 1240 (Given - Provider: Angelica Casillas RN) * 1659 (Given - Provider: Angelica Casillas, RN) * 2009 (Given - Provider: Amos Crabtree RN) * 0800 (Not Given - Provider: Tiffani Avitia RN - Reason: Change in vital signs) * 1151 (Given - Provider: Tiffani Avitia RN) * 1611 (Given - Provider: Tiffani Avitia RN) * 2208 (Given - Provider: Vani Koehler RN) * 0744 (Given - Provider: Tiffani Avitia RN) * 1600 (Canceled Entry - Provider: Automatic Discharge Provider - Comment: Automatically canceled at discontinue of medication order) metoprolol succinate XL (Toprol-XL) 24 hr tablet 25 mg 25 mg, oral, Daily, First dose on Wed12/20/24 at 1000, For 99 days, Do not crush or chew. * 0800 (Not Given - Provider: Tiffani Avitia RN - Reason: Change in vital signs) * 0744 (Given - Provider: Tiffani Avitia RN) mirtazapine (Remeron) tablet 45 mg 45 mg, oral, Nightly, First dose on Wed12/19/24 at 2200, For 99 days * 2009 (Given - Provider: Amos Crabtree RN) * 2207 (Given - Provider: Vani Koehler, DEE) pantoprazole (ProtoNix) EC tablet 40 mg 40 mg, oral, Daily at 7am, First dose on Wed12/19/24 at 1800, Do not crush, chew, or split., Indication: GERD * 1800 (Not Given - Provider: Tiffani Avitia RN - Reason: Other - Comment: start in AM) * 0618 (Given - Provider: Amos Crabtree RN) * 0609 (Given - Provider: Vani Koehler, DEE) ranolazine (Ranexa) 12 hr tablet 500 mg 500 mg, oral, 2 times daily, First dose on Wed12/19/24 at 2200, For 99 days, Do not crush, chew, orsplit. * 2009 (Given - Provider: Amos Crabtree RN) * 0814 (Given - Provider: Tiffani Avitia RN) * 220 (Given - Provider: Vani Koehler RN) * 0744 (Given - Provider: Tiffani Avitia, RN) rosuvastatin (Crestor) tablet 40 mg 40 mg, oral, Nightly, First dose on Wed12/19/24 at 2200, For 99 days * 2009 (Given - Provider: Amos Crabtree RN) * 2207 (Given - Provider: Vani Koehler RN) scopolamine (Transderm-Scop) patch 1 patch 1 patch, transdermal, Administer over 72 Hours, Every 72 hours, First dose on Wed12/18/24 at 1845, For 99 days, Apply to hairless area of skin behind the ear. * 1402 (Due: Medication Removed - Provider: Automatic Discharge Provider - Comment: Time automatically adjusted from order being discontinued) traZODone (Desyrel) tablet 100 mg 100 mg, oral, Nightly, First dose on Wed12/19/24 at 2200, For 99 days * 2010 (Given - Provider: Amos Crabtree RN) * 2207 (Given - Provider: Vani Koehler RN) Medication Order//20240216/07/2024 Adult Cyclic 3-in-1 TPN () 2,500 mL, intravenous, at 22.5-180.2 mL/hr, Administer over 16 Hours, Cyclic TPN, Starting on Wed12/18/24 at 2200, For 24 hours, Pt receives TPN MWF only Use a 1.2 micron filter. Start rate at 180.2 mL/hr for 13 hours. Decrease rate to 90.1 mL/hr for 1 hours. Decrease rate to 45 mL/hr for 1 hours. Decrease rate to 22.5 mL/hr for 1 hours, then stop. 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 Start rate at 180.2 mL/hr for 13 hours. Decrease rate to 90.1 mL/hr for 1 hours. Decrease rate to 45 mL/hr for 1 hours. Decrease rate to 22.5 mL/hr for 1 hours, then stop. 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 * 2209 (New Bag - Provider: Vani Koehler RN) * 1109 (Rate/Dose Change - Provider: Tiffani Avitia RN) * 1209 (Rate/Dose Change - Provider: Tiffani Avitia RN) * 1309 (Rate/Dose Change - Provider: Tiffani Avitia, RN) * 1353 (Stopped - Provider: Giovanni Avitia RN) * 1409 (Due: Stopped - Provider: Vani Koehler RN) Medication Order dextrose 50 % in water (D50W) syringe 25 g(Linked Group 2) 25 g, intravenous, Every 15 min PRN, capillary blood glucose < 70 mg/dL and patient unable to take oral and has IV access, Starting on Wed12/19/24 at 1738, For 99 days, - Recheck blood glucose [...] or tube feeding bolus) diphenhydrAMINE (BENADryl) injection 25 mg (CANCELED) 25 mg, intravenous, Every 6 hours PRN, itching, Starting on Wed12/17/24 at 1427, For 99 days * 0604 (Given - Provider: Amos Crabtree RN) diphenhydrAMINE (BENADryl) injection 50 mg 50 mg, intravenous, Every 6 hours PRN, itching, Starting on Wed12/19/24 at 1209, For 97 days * 1240 (Given - Provider: Angelica Casillas RN) * 1838 (Given - Provider: Angelica Casillas RN) * 0153 (Given - Provider: Sara Jade RN) * 0814 (Given - Provider: Tiffani Avitia, DEE) * 1441 (Given - Provider: Tiffani Avitia, DEE) * 2043 (Given - Provider: Vani Koehler, DEE) * 0335 (Given - Provider: Vani Koehler RN) * 0948 (Given - Provider: Tiffani Avitia, RN) glucose chewable tablet 24 g(Linked Group 2) 24 g, oral, Every 15 min PRN, capillary blood glucose < 70 mg/dL and patient alert and eating, Starting on Wed12/19/24 at 1738, For 99 days, - Recheck blood glucose [...] IV fluids or tube feeding bolus) HYDROcodone-acetaminophen ([place]) 5-325 mg per tablet 2 tablet (CANCELED) 2 tablet, oral, Every 4 hours PRN, moderate pain (4-7 pain score), Starting on Wed12/19/24 at 1206,For 99 days * 1411 (Given - Provider: Tiffani Avitia RN) HYDROcodone-acetaminophen ([place]) 5-325 mg per tablet 2 tablet 2 tablet, oral, Every 4 hours PRN, severe pain (8-10 pain score), Starting on Wed12/19/24 at 1755, For 99 days * 1848 (Given - Provider: Angelica Casillas RN) * 0153 (Given - Provider: Sara Jade, DEE) * 0617 (Given - Provider: Amos Crabtree, DEE) * 1151 (Given - Provider: Tiffani Avitia, DEE) * 1801 (Given - Provider: Giovanni Avitia RN) * 2216 (Given - Provider: Vani Koehler, DEE) * 0336 (Given - Provider: Vani Koehler, DEE) * 0747 (Given - Provider: Tiffani Avitia, DEE) * 1226 (Given - Provider: Tiffani Avitia, DEE) HYDROmorphone (Dilaudid) injection 0.3 mg 0.3 mg, intravenous, Every 3 hours PRN, severe pain (8-10 pain score), breakthrough, Starting on Wed12/20/24 at 1141, For 99 days * 1241 (Given - Provider: Tiffani Avitia RN) * 1611 (Given - Provider: Tiffani Avitia RN) * 2010 (Given - Provider: Vani Koehler, RN) * 2324 (Given - Provider: Vani Koehler, RN) * 0609 (Given - Provider: Vani Koehler RN) * 0947 (Given - Provider: Tiffani Avitia RN) HYDROmorphone (Dilaudid) injection 0.4 mg (CANCELED)(Linked Group 3) 0.4 mg, intravenous, Every 3 hours PRN, severe pain (8-10 pain score), Starting on Wed12/17/24 at 1229, For 99 days * 0307 (Given - Provider: Amos Crabtree RN) * 0604 (Given - Provider: Amos Crabtree RN) * 0936 (Given - Provider: Tiffani Avitia RN) * 1242 (Given - Provider: Tiffani Avitia RN) * 1557 (Given - Provider: Lashanda Medrano RN) hydrOXYzine (Vistaril) injection 25 mg (CANCELED) 25 mg, intramuscular, Every 6 hours PRN, anxiety, Starting on Wed12/17/24 at 1953 * 0418 (Given - Provider: Amos Crabtree RN) hydrOXYzine HCL (Atarax) tablet 50 mg 50 mg, oral, Nightly PRN, anxiety, insomnia, Starting on Wed12/19/24 at 1204, For 99 days ondansetron HCl (PF) (Zofran) injection 4 mg(Linked Group 4) 4 mg, intravenous, Every 6 hours PRN, nausea, vomiting, Starting on Wed12/17/24 at 1221, For 99 days, Give IV if patient is unable to take orally. Administer as an IV push over 2 to 5 minutes. * 0307 (Given - Provider: Amos Crabtree RN) * 0936 (Given - Provider: Tiffani Avitia RN) * 0936 (Given - Provider: Tiffani Avitia, DEE) * 1441 (Given - Provider: Tiffani Avitia RN) ondansetron HCl (PF) (Zofran) injection 4 mg 4 mg, intravenous, Once as needed, nausea, vomiting, use if prochlorperazine ineffective, Starting on Wed12/18/24 at 2030, For 1 dose, Recovery & On Unit, Use prochlorperazine first and then use ondansetron if prochlorperazine is ineffective. Administer as an IV push over 2 to 5 minutes. ondansetron ODT (Zofran-ODT) disintegrating tablet 4 mg(Linked Group 4) 4 mg, oral, Every 8 hours PRN, nausea, vomiting, Starting on Wed12/17/24 at 1221, For 99 days * 0307 (See Alternative - Provider: Amos Crabtree RN) * 0936 (See Alternative - Provider: Tiffani Avitia RN) * 0936 (See Alternative - Provider: Tiffani Avitia RN) * 1441 (See Alternative - Provider: Tiffani Avitia, DEE) sodium chloride flush 10 mL(Linked Group 5) 10 mL, intravenous, Every 8 hours PRN, line care, Starting on Wed12/17/24 at 1217, For 99 days traMADol (Ultram) tablet 50 mg 50 mg, oral, Every 6 hours PRN, moderate pain (4-7 pain score), Starting on Wed12/19/24 at 1751, For 99 days Order Group 1: fentaNYL (Duragesic) 12 mcg/hr 1 patchJump to med 1 patch, transdermal, Administer over 72 Hours, Every 72 hours, First dose on Wed12/19/24 at 1745, For 99 days, Do not cut patch. [...] policy. Wash hands immediately after handling patch. And fentaNYL (Duragesic) 25 mcg/hr 1 patchJump to med 1 patch, transdermal, Administer over 72 Hours, Every 72 hours, First dose on Wed12/19/24 at 1745, For 99 days, Do not cut patch. [...] policy. Wash hands immediately after handling patch. Group 2: glucose chewable tablet 24 gJump to med 24 g, oral, Every 15 min PRN, capillary blood glucose < 70 mg/dL and patient alert and eating, Starting on Wed12/19/24 at 1738, For 99 days, - Recheck blood glucose [...] oral and has IV access, Starting on Wed12/19/24 at 1738, For 99 days, - Recheck blood glucose [...] IV fluids or tube feeding bolus) Group 3: HYDROmorphone (Dilaudid) injection 0.2 mg (CANCELED) 0.2 mg, intravenous, Every 3 hours PRN, moderate pain (4-7 pain score), Starting on Wed12/17/24 at 1229, For 99 days Or HYDROmorphone (Dilaudid) injection 0.4 mg (CANCELED)Jump to med 0.4 mg, intravenous, Every 3 hours PRN, severe pain (8-10 pain score), Starting on 12/17/24 at 1229, For 99 days Group 4: ondansetron ODT (Zofran-ODT) disintegrating tablet 4 mgJump to med 4 mg, oral, Every 8 hours PRN, nausea, vomiting, Starting on 12/17/24 at 1221, For 99 days Or ondansetron HCl (PF) (Zofran) injection 4 mgJump to med 4 mg, intravenous, Every 6 hours PRN, nausea, vomiting, Starting on 12/17/24 at 1221, For 99 days, Give IV if patient is unable to take orally. Administer as an IV push over 2 to 5 minutes. Group 5: Insert peripheral IV (CANCELED) Once, On 12/17/24 at 1218, For 1 occurrence And Saline lock IV (CANCELED) Once, On Wed12/17/24 at 1218, For 1 occurrence And sodium chloride flush 10 mLJump to med 10 mL, intravenous, Every 8 hours PRN, line care, Starting on Wed12/17/24 at 1217, For 99 days documented in this encounter Care Teams Team MemberRelationshipSpecialtyStart DateEnd Date Thomas Alas MD [facility] [place] [phone] PCP - GeneralFamily Medicine08/17/24documented as of this encounter
--- OUTSIDE RECORDS SUMMARY | 2024-12-18 19:08 | XMS_ITS | Encounter Summary ---
Author Organization [facility] Address [address] [place] [address] Care Team Providers Care Powder Line Repairer Name Role Phone Thomas Alas MD Primary Care Provider [phone] Reason for Visit * Auth/Cert (Routine)SpecialtyDiagnoses / ProceduresReferred By ContactReferred To Contact Diagnoses Partial bowel obstruction (CMS/HCC) Partial Small Bowel Obstruction Procedures NO CODED SERVICE Anne Marie Scott MD [address] [place] [address] Phone: tel: fax: [facility] 6AB Ortho Surgery [address] [place] [address] Phone: tel: Referral IDStatusReasonStart DateExpiration DateVisits RequestedVisits [id number] Encounter Details DateTypeDepartmentCare Team (Latest Contact Info)Llzstfrkvxg85/03/2025 7:08 PM ESTAnesthesia Event [facility] Main Operating Room [address] [place] [address] Josue Walters MD [address] [place] [address] Devon Rosario CAA [address] [place] [address] Anesthesia Record Procedure NameResponsible AnesthesiologistAnesthesia Start TimeAnesthesia Stop TimeDIAGNOSTIC LAPAROSCOPY (Abdomen)Josue Walters MD12/18/24 [id number]/18/[id number]97/03/[id number] Tvqnn1564Qn Start Kcxf3513Lw InductionThe patient was reevaluated immediately before moderate or deep sedation use and before anesthesia induction.1916An Lkmnnxynky6578Kxevhgqemg Bybuz4303Ukol OutTime out completed (confirmed patient ID, surgeon, procedure, and operative site).4An Jujicjodqz4042pw stop aoag1041Je Jvbj4548Yhwqzzq to ReceivingI completed my handoff to the receiving clinician during which we: 1. Identified the patient 2. Identified the responsible provider 3. Reviewed the pertinent medical history 4. Discussed the surgicalcourse 5. Reviewed intra-op anesthesia management and issues during anesthesia 6. Set expectations for post- procedure period 7. Allowed opportunity for questions and acknowledgement of understanding.* NameTotalmidazolam (Versed) 1mg/mL injection2 mgfentaNYL (SUBLIMAZE) sbahbdpzs925 mcglidocaine (Xylocaine) 20 mg/ml injection 2 %60 mg propofol 10 mg/mL160 mgsuccinylcholine 20 mg/mL140 ilfnhubjjzfm08 mg dexAMETHasone (Decadron) 4 MG/ML injection8 mgondansetron 2 mg/mL4 mgesmolol (Brevibloc) 100 mg/10 ml (10 mg/ml) jtanwgefr23 mgsugammadex 200 mg/1gP444 mg sodium chloride 0.9 % ykslsjvr515.33 mLceFAZolin 1 g2,000 mgcalcium chloride 10%1,000 mg * Agents Name O2 N2O Air Sevoflurane Inspired Sevoflurane N2O Inspired N2O Inspired O2 Setting * Blood No blood administrations on file. TypeDetailsPlacementRemovalOpen Wound (Any Pressure Injuries included)11/02/24; 0909; Surgical; Groin; Anterior, Proximal, Right, Upper; hematoma (x2 small access sites noted to area)11/02/24 09 by Roge Spence Wound (Any Pressure Injuries included)11/16/24; 0800; Y; Abdomen; Left, Lower; old j tube site11/16/24 0800 by Roge Heck Wound (Any Pressure Injuries included)12/18/24; 1932; Abdomen; Upper11/03/25 1932 by Jewell Weems RNNG/OG TubePlacement Date: 12/17/24; Placement Time: 0000; Existing LDA Placed by: [facility]; Inserted by: [facility]; Type: Nasogastric; Location: Right nostril; Removal Date: 12/19/24; Removal Time: 1027; Removal Reason: Other (Comment) (Removed by Physican)12/17/24 0000 by Adriano Cowan RN12/19/24 1027 [facility] IVPlacement Date: 12/18/24; Placement Time: 1348; Catheter Size: 22 G; Orientation: Anterior, Right; Location: Forearm; Site Prep: Chlorhexidine ; Local Anesth: None; Technique: Ultrasound guidance; Inserted by: Gela Garcia RN; Insertion Attempts: 1; Difficult Venous Access? No; Patient Tolerance: Tolerated well; Removal Date: 12/20/24; Removal Time: 1423; Removal Reason: Ypntrljpmnb90/03/25 1348 by Maryuri Chaparro RN12/20/24 1423 by Tiffani Avitia [facility]RE[facility] Single LumenPlacement Date: 12/18/24; Placement Time: 1454; Type: Tunneled; Orientation: Right; Location: Subclavian; Placement Verification: X- ray; Removal Date: 12/21/24; Removal Time: 145 by Adriano Cowan RN 12/21/24 1803 by Automatic Discharge ProviderUrethral CatheterPlacement Date: 12/18/24; Placement Time: 1914; Type: Double-lumen; Size: 16 Fr.; Balloon Size: 5 mL; Urine Returned: Yes; Removal Date: 12/18/24; Removal Time: 1914 by Jewell Weems RN12/18/242022 by Jewell Weems RNETTPlacement Date: 12/18/24; Placement Time: 1915 (created via procedure documentation); Mask Ventilation: 0; Technique: Video laryngoscopy; Type: ETT - single; Single Lumen Tube Size: 7 mm; Cuffed: Yes; Blade Size: 3; Location: Oral; Grade View: Grade I; Insertion Attempts: 1; Placement Verification:Auscultation, Capnometry; Removal Date: 12/18/24; Removal Time: 1916 by ORLANDO Jones 12/18/242023 by Sergio Jones in this encounter Social History Tobacco UseTypesPacks/DayYears UsedDateSmoking Tobacco: NeverSmokeless Tobacco: NeverAlcohol UseStandard Drinks/WeekCommentsNot Currently0 (1 standard drink = 0.6 oz pure alcohol)[facility] UtilitiesAnswerDate RecordedIn the past 12 months has the [employer], gas, oil, or water [employer] threatened to shut off services in your [...] homeless or living in a fdc (including now)?No12/17/2024Hunger Vital SignAnswerDate RecordedWithin the past 12 months, you worried that your food would run out before you got the money to buymore.Never true12/17/2024Ran Out of Food in the Last YearNot on file 12/17/2024CommentsNoSex and Gender InformationValueDate RecordedSex Assigned at QiktqBgdqdc48/03/2025 3:45 PM EDTLegal RkeDmpwxv40/30/2022 12:07 AM EDTGender NkxurcoxKmdfhn44/03/2025 3:45 PM EDTSexual OrientationHeterosexual or Vjwwaago79/03/2025 3:45 PM EDTdocumented as of this encounter Functional Status * BPAnswerDate of DunvulgwhhGriidi840/6412/18/2024 10:16 PM Amos Soares RN * PulseAnswerDate of YrbahavtznEitmzl7084/03/2025 10:16 PM Amos Soares RN * QuestionAnswerDate of AssessmentAuthorHeart Rate QgezfrCslscuj00/03/2025 10:16 PM Amos Soares, RNPatient HfifbbwrRkycl68/03/2025 10:16 PM Amos Soares RN * Qureshi Fall RiskQuestionAnswerDate of AssessmentAuthorHistory of Falling, Immediate or Within 3 Zlqyra645 10:00 PM Amos Soares RNSecondary Auevazwnd299/03/2025 10:00 PM Amos Soares RNAmbulatory Sak457 10:00 PM Amos Soares RNIntravenous Therapy/Heparin Psmr7366 10:00 PM Amos Soares RNGait/Bujaglireprg388/03/2025 10:00 PM Amos Soares RNMental Dtrmbn274 10:00 PM Amos Soares RNMorse Fall Risk Lcyyn6325 10:00 PM Amos Soares RN * Cyrus ScaleQuestionAnswerDate of AssessmentAuthorBraden No Risk Interventions Continue to assess patient according to level of care12/18/2024 10:26 PM Amos Tabor RNSensory Goreokjdhra676/03/2025 10:26 PM Amos Soares RN Tapffhix004/03/2025 10:26 PM Amos Soares NWDvilgtqk213/04/2024 10:26 PM Amos Soares RNMobility4102/18/2024 10:26 PM Amos Soares RNNutrition 211 10:26 PM Amos Soares, RNFriction and Rnekn40202/18/2024 10:26 PM Amos Soares RNBraden Scale Euxcc497812/18/2024 10:26 PM Amos Soares RN * Patient's Stated Pain GoalAnswerDate of VixvsopqlqPzydxr137/03/2025 9:26 PM Alyce Hedrick RN * Slaughter Fall Risk InterventionsQuestionAnswerDate of AssessmentAuthor Slaughter Fall Risk HlljqvdnmqiroJvvpyduk96/03/2025 10:00 PM Amos Soares RN * Pain Assessment TimerQuestionAnswerDate of AssessmentAuthorRestart Pain Assessment EufxsDsc89/03/2025 9:26 PM Alyce Hedrick RN * Sepsis Model ScoresQuestionAnswerDate of AssessmentAuthorEarly Detection of Sepsis Score2.3811 10:46 PM ESTChronicles, BatchqEarly Detection of Sepsis Score0.411 10:46 PM ESTChronicles, Batchq * Pain AssessmentQuestionAnswerDate of AssessmentAuthorPain LocationAbdomen 12/18/2024 10:31 AM Adriano Klein RNPain InterventionsMedication (See MAR) 12/18/2024 9:26 PM Alyce Hedrick RNResponse to Interventionsno zzsrlyktxcr90/03/2025 4:02 PM Adriano Klein RNPain TypeChronic pain 12/18/2024 10:31 AM Adriano Klein RNClinical ProgressionNot changed 12/18/2024 10:31 AM Adriano Klein RNPain Assessment0-10102/18/2024 9:26 PM Alyce Hedrick RN * Pain ScoreAnswerDate of RlgfrzfdbgEneiwd068/03/2025 9:26 PM Alyce Hedrick RN * MEWS SCOREQuestionAnswerDate of AssessmentAuthorMEWS NFXCX642 10:01 PM DARNELLChronicles Batchq * Patient BehaviorsAnswerDate of AssessmentAuthorFacial hgpnsciid21/03/2025 9:26 PM Alyce Hedrick RN * Deterioration Index ScoreQuestionAnswerDate of AssessmentAuthorDeterioration Index Score18.4612/18/2024 10:46 PM ESTChronicles, Batchq * BPAnswerDate of SkkaeytzgiJqdbng597/6412/18/2024 10:16 PM Amos Soares RN * TempAnswerDate of HussugwgfwJepbuy05.211 10:16 PM Amos Soares RN * PulseAnswerDate of TbkuznfonaJowbef8827 10:16 PM Amos Soares RN * MdD6McolixCira of VizzlijaccGoizgw03260/03/2025 10:16 PM Amos Soares RN * Head, Ears, Eyes, Nose, and Throat (HEENT)QuestionAnswerDate of Assessment AuthorHead, Ears, Eyes, Nose, and Throat (WDL)X102/18/2024 10:26 PM Amos Soares RNR EyeMildly impaired jlxbly6212/18/2024 10:26 PM Amos Soares RNL EyeMildly impaired hctgqs5112/18/2024 10:26 PM Amos Soares RNR EarIntact 12/18/2024 10:26 PM Amos Soares RNL GsjPfeblg17/03/2025 10:26 PM Amos Tabor RNNoseOther (Comment)12/18/2024 10:26 PM Amos Soares RN Head and QybbGldnhwbttgt23/03/2025 10:30 AM Angelica Cardenas RN * Short Portable Mental StatusQuestionAnswerDate of AssessmentAuthorWhat are the date, month, year? 10:31 AM Adriano Klein RNWhat is the day of the week? 10:31 AM Adriano Klein RNWhat is the name of this place? 10:31 AM Adriano Klein RNWhat is your phone number?0 12/18/2024 10:31 AM Adriano Klein RNHow old are you? 10:31 AM Adriano Klein RNWhen were you born? 10:31 AM Adriano Klein RNWho is the current president? 10:31 AM Adriano Klein RNWho was the president before him? 10:31 AM Adriano Klein RN * Fall Risk LevelQuestionAnswerDate of AssessmentAuthorMobility zoneLow (Green Zone)12/18/2024 10:00 PM Amos Soares RNMorse fall risk zoneLow (Green Zone)12/18/2024 10:00 PM Amos Soares RNMental status questionaire zone Low (Green Zone)12/18/2024 10:00 PM Amos Soares RN * QuestionAnswerDate of AssessmentAuthorHead of Bed ElevatedHOB less than 20 12/18/2024 9:30 PM Alyce Hedrick RN * Vital SignsQuestionAnswerDate of AssessmentAuthorTemp yggLikb2812/18/2024 10:16 PM Amos Soares RNResp16102/18/2024 10:16 PM Amos Soares RNHeart Rate BwrjadGbtjjmm52/03/2025 10:16 PM Amos Soares RNBP LocationRight arm 12/18/2024 10:16 PM Amos Soares RNBP PxnsymHqehovtbm14/03/2025 10:16 PM Amos Soares RNPulse rate from Plethysmogram (bpm)8812/18/2024 9:30 PM Alyce Hedrick RNPatient MiotaaktDqaiz71/03/2025 10:16 PM Amos Soares RN * GastrointestinalQuestionAnswerDate of AssessmentAuthorLast Cbjj66352 12/18/2024 10:26 PM Amos Soares RNPassing FipgriRht61/03/2025 10:26 PM Amos Soares RNAbdominal VbsuyhwldoUsfjtlqxac08/03/2025 10:26 PM EST Amos Crabtree RNBowel Sounds (All Quadrants)Ntdmmroxtk20/03/2025 10:26 PM EST Amos Crabtree RNGastrointestinal (WDL)X102/18/2024 10:26 PM Amos Soares, RNAbdomen InspectionSoft;Dkjcxfikovtq29/03/2025 9:30 PM Alyce Hedrick RNGastrointestinal UumrmeagJpcbpx74/03/2025 10:26 PM Amos Soares, [place] WwfxdqdgthawNr09/03/2025 10:26 PM Amos Soares RNBowel SoundsAll jsdihpfmy41/03/2025 10:26 PM Amos Soares RN * Peripheral VascularQuestionAnswerDate of AssessmentAuthorPeripheral Vascular (WDL)WDL102/18/2024 10:26 PM Amos Soares RN * RUE Neurovascular AssessmentQuestionAnswerDate of AssessmentAuthorRight Radial Pulse+ 10:26 PM Amos Soares RN * LUE Neurovascular AssessmentQuestionAnswerDate of AssessmentAuthorLeft Radial Pulse+ 10:26 PM Amos Soares RN * RLE Neurovascular AssessmentQuestionAnswerDate of AssessmentAuthorRight Pedal Pulse+ 10:26 PM Amos Soares RN * LLE Neurovascular AssessmentQuestionAnswerDate of AssessmentAuthorLeft Pedal Pulse+ 10:26 PM Amos Soares RN * MusculoskeletalQuestionAnswerDate of AssessmentAuthorMusculoskeletal (WDL)WDL 12/18/2024 10:26 PM Amos Soares RN * PsychosocialQuestionAnswerDate of AssessmentAuthorPsychosocial (WDL)WDL 12/18/2024 10:26 PM Amos Soares RN * Qureshi Fall RiskQuestionAnswerDate of AssessmentAuthorHistory of Falling, Immediate or Within 3 Ibhkor798 10:00 PM Amos Soares RNSecondary Wcnmjjgbz468/03/2025 10:00 PM Amos Soares, RNAmbulatory Rjh13502/18/2024 10:00 PM Amos Soares RNIntravenous Therapy/Heparin Ohsq6676 10:00 PM Amos Soares RNGait/Wegriaxfbfht181/03/2025 10:00 PM Amos Soares RNMental Htftlm463/03/2025 10:00 PM Amos Soares RNMorse Fall Risk Mpdcm3729 10:00 PM Amos Soares RN * Cyrus ScaleQuestionAnswerDate of AssessmentAuthorBraden No Risk Interventions Continue to assess patient according to level of care12/18/2024 10:26 PM Amos Tabor, RNSensory Cwsjelmtvjs971/03/2025 10:26 PM Amos Soares RN Yoofdrpk818/03/2025 10:26 PM Amos Soares, UOImqsboup510/03/2025 10:26 PM Amos Soares RNMobility4102/18/2024 10:26 PM Amos Soares RNNutrition 10:26 PM Amos Soares, RNFriction and Dximl32302/18/2024 10:26 PM Amos Soares RNBraden Scale Fyhis1613 10:26 PM Amos Soares RN * MAP (mmHg)AnswerDate of DrbhspnqtyJlxnht5984/03/2025 10:16 PM Amos Soares RN * CardiacQuestionAnswerDate of AssessmentAuthorCardiac VzdpyjGHV56/03/2025 10:26 PM Amos Soares RNCardiac YdppdkmvuvIaavimr74/03/2025 10:26 PM Amos Soares RNCardiac (WDL)WDL102/18/2024 10:26 PM Amos Soares RNHeart Sounds S1, S212/18/2024 10:26 PM Amos Soares RN * RespiratoryQuestionAnswerDate of AssessmentAuthorBilateral Breath SoundsClear 12/18/2024 10:26 PM Amos Soares RNRespiratory XrrkkglTskmce77/03/2025 10:26 PM Amos Soares RNChest AssessmentChest expansion symmetrical 12/18/2024 10:26 PM Amos Soares RNRespiratory (WDL)WDL102/18/2024 10:26 PM Amos Soares RNRespiratory UrqsfjLbndcmcpd37/03/2025 10:26 PM Amos Tabor RNRespiratory Depth/KecflfGwcudzc95/03/2025 10:26 PM Amos Soares RNBreath SoundsBilateral breath rdimsj8712/18/2024 10:26 PM Amos Soares RN * Charting TypeQuestionAnswerDate of AssessmentAuthorCharting TypeShift zydmkjxcny05/03/2025 10:26 PM Amos Soares RN * Patient's Stated Pain GoalAnswerDate of UgaxxzdniiNmysio599/03/2025 9:26 PM Alyce Hedrick RN * GenitourinaryQuestionAnswerDate of AssessmentAuthorGenitourinary (WDL)WDL 12/18/2024 10:26 PM Amos Soares RNGenitourinary YwwdvchnXefr61/03/2025 10:26 PM Amos Soares RN * NeurologicalQuestionAnswerDate of AssessmentAuthorLevel of ConsciousnessAlert 12/18/2024 10:26 PM Amos Soares RNOrientation LevelOriented X4102/18/2024 10:26 PM Amos Soares RNCognitionAppropriate judgement;Appropriate safety awareness;Appropriate attention/concentration;Appropriate for developmental age;Follows ojlgwtcr52/03/2025 10:26 PM Amos Soarse RNSpeechClear 12/18/2024 10:26 PM Amos Soares RNNeuro ([facility])WDL102/18/2024 10:26 PM Amos Tabor RN * Safe EnvironmentQuestionAnswerDate of AssessmentAuthorArm Bands OnID;Allergies 12/18/2024 10:00 PM Amos Soares RNSide Rails/Bed Safety2/411 10:00 PM Amos Soares RNBed QuvxewBeh48/03/2025 10:00 PM Amos Soares RNThe Patient's Environment is ZekfUak2025 10:00 PM Amos Soares RN * MobilityQuestionAnswerDate of AssessmentAuthorProvider KzwyixtuXub29/03/2025 10:31 AM Adriano Klein RNRestingbed12/18/2024 10:00 PM Amos Soares RNActivity PerformedAmbulated in room;Walked to woyyecsm41/03/2025 10:31 AM Adriano Klein RNAmbsekou ResponseTolerated well12/18/2024 10:31 AM Adriano Drake RNRepositionedTurns self12/18/2024 10:00 PM Amos Soares RNRange of MotionActive;All qkzrsmbyouv92/03/2025 10:31 AM Adriano Klein RNAnti-Embolism DevicesBilateral;Sequential compression devices, below knee 12/18/2024 10:00 PM Amos Soares RNAnti-Embolism VedtjitthaxkWf33/03/2025 10:00 PM Amos Soares RNPositioning FrequencyAble to turn self12/18/2024 10:00 PM Amos Soares RN * HygieneQuestionAnswerDate of AssessmentAuthorIs Patient Total Care?No 12/18/2024 10:31 AM Adriano Klein RN * Comfort and Environment InterventionsQuestionAnswerDate of AssessmentAuthor ComfortRepositioned;Pain aapmauwbuz80/03/2025 10:31 AM Adriano Klein RN * Slaughter Fall Risk InterventionsQuestionAnswerDate of AssessmentAuthor Slaughter Fall Risk TudtakebxuxioMumwrdlr58/03/2025 10:00 PM Amos Soares RN * QuestionAnswerDate of VmsppfazxhKlfkrqKIOU2879/03/2025 8:27 PM ESTInterface, Device In * Kris Coma ScaleQuestionAnswerDate of AssessmentAuthorBest Eye Response Hnrabnoehif06/03/2025 10:26 PM ESTAmos Crabtree RNBest Verbal Response Xaonpklj10/03/2025 10:26 PM Amos Soares RNBest Motor ResponseFollows ddmlkopf27/03/2025 10:26 PM Amos Soares RNGlasgow Coma Scale Score15 12/18/2024 10:26 PM Amos Soares RN * Pain AssessmentQuestionAnswerDate of AssessmentAuthorPain LocationAbdomen 12/18/2024 10:31 AM Adriano Klein RNPain InterventionsMedication (See MAR) 12/18/2024 9:26 PM Alyce Hedrick RNResponse to Interventionsno aakaszuqpaq61/03/2025 4:02 PM Adriano Klein RNPain TypeChronic pain 12/18/2024 10:31 AM Adriano Klein RNClinical ProgressionNot changed 12/18/2024 10:31 AM Adriano Klein RNPain Assessment0-10102/18/2024 9:26 PM Alyce Hedrick RN * NutritionQuestionAnswerDate of AssessmentAuthorDiet TypeTube feeding;NPO 12/18/2024 10:00 PM Amos Soares RNFeedingAble to feed self12/18/2024 10:00 PM Amos Soares RN * IntegumentaryQuestionAnswerDate of AssessmentAuthorSkin ColorAppropriate for race12/18/2024 10:26 PM Amos Soares RNSkin Condition/TempWarm;Dry 12/18/2024 10:26 PM Amos Soares RNSkin IntegrityOther (Comment) 12/18/2024 10:26 PM Amos Soares RNSkin TurgorNon-eucgivy4312/18/2024 10:26 PM Amos Soares RNIntegumentary Additional VvpuxzkkpppCbkftum16/03/2025 10:31 AM Adriano Klein RNIntegumentary (WDL)X102/18/2024 10:26 PM Amos Soares RNDojuan patient have tattoos?Yes12/18/2024 10:31 AM Adriano Klein RN * Pain ScoreAnswerDate of EooptaraiqTmiptb237/03/2025 9:26 PM Alyce Hedrick RN * [place] Suicide Severity Rating ScaleQuestionAnswerDate of AssessmentAuthor1. Have you wished you were or wished you could go to sleep and not wake up? No12/18/2024 6:54 PM Sarai Garcia * Patient BehaviorsAnswerDate of AssessmentAuthorFacial yxjzkkljm02/03/2025 9:26 PM Alyce Hedrick RN * Modified AldreteQuestionAnswerDate of HluovyoeetVexhhmCdftbhba806/03/2025 9:30 PM Alyce Hedrick RNRespiration2102/18/2024 9:30 PM Alyce Hedrick RNCirculation2102/18/2024 9:30 PM Alyce Hedrick RN Sdnytpzgdfwee949/03/2025 9:30 PM Alyce Hedrick RNOxygen Saturation1 12/18/2024 9:30 PM Alyce Hedrick RNModified Jesi Lvmif98702/18/2024 9:30 PM Alyce Hedrick RN documented as of this encounter Mental Status * [place] Coma ScaleQuestionAnswerEntry DateAuthorBest Eye ResponseSpontaneous 12/18/2024 10:26 PM Amos Soares RNBe Verbal KsxavmkyPnsrypzr07/03/2025 10:26 PM Amos Soares RNBest Motor ResponseFollows tjyidfhf73/03/2025 10:26 PM Amos Soares RNGlasgow Coma Scale Zkddf9867/03/2025 10:26 PM Amos Tabor RN * Modified AldreteQuestionAnswerEntry HxecToxrgjZfprwiwn085/03/2025 9:30 PM Alyce Shields RNRespiration2102/18/2024 9:30 PM Alyce Hedrick RN Rjubknhcnbd009/03/2025 9:30 PM Alyce Hedrick RNConsciousness2 12/18/2024 9:30 PM Alyce Hedrick RNOxygen Xwrqbxhykr165/03/2025 9:30 PM Alyce Hedrick RNModified Jesi Mlevh31402/18/2024 9:30 PM EST Alyce Ortega RN documented in this encounter Procedure Notes * ORLANDO Jones - 12/18/2024 7:24 PM ESTAssociated Order(s): Airway Airway Date/Time: 12/18/2024 7:16 PM Reason: elective Airway not difficult General Information and Staff Patient location during procedure: OR Anesthesiologist: Josue Walters MD Resident/THERAPY SITE COORDINATOR/CAA: ORLANDO Jones Performed: resident/THERAPY SITE COORDINATOR/ORLANDO Patient Condition Indications for airway management: anesthesia Sedation level: deep Final Airway Details Preoxygenated: yes Final airway type: endotracheal airway Successful airway: ETT Cuffed: yes Successful intubation technique: video laryngoscopy Adjuncts used in placement: intubating stylet and cricoid pressure Endotracheal tube insertion site: oral Blade: Nettles Blade size: #3 ETT size (mm): 7.0 Cormack-Lehane Classification: grade I - full view of glottis Placement verified by: chest auscultation and capnometry Measured from: lips ETT to lips (cm): 21 Number of attempts at approach: 1 Number of other approaches attempted: 0 documented in this encounter Plan of Treatment DateTypeDepartmentCare Team (Latest Contact Info)Fosdwninhfx75/13/2025 3:00 PM ESTOffice Visit [facility] [address] [place] [address] Donnie Cesar MD [address] [place] [address] 01/31/2025 11:00 AM ESTOffice Visit [place] [address] [place] [address] Wali Collins MD [address] [place] [address] documented as of this encounter Procedures Procedure NamePriorityDate/TimeAssociated DiagnosisCommentsPR AN ELECTIVE ENDOTRACHEAL XCRWPNSmvisrj60/03/2025 7:16 PM EST documented in this encounter Results * NV AN ELECTIVE ENDOTRACHEAL AIRWAY (12/18/2024 7:16 PM EST) Ayanna Hernandez CAA - 12/18/2024 7:16 PM EST ORLANDO Jones 12/18/2024 7:24 PM Airway Date/Time: 12/18/2024 7:16 PM Reason: elective Airway not difficult General Information and Staff Patient location during procedure: OR Anesthesiologist: Josue Walters MD Resident/THERAPY SITE COORDINATOR/CAA: ORLANDO Jones Performed: resident/THERAPY SITE COORDINATOR/[place]O Patient Condition Indications for airway management: anesthesia Sedation level: deep Final Airway Details Preoxygenated: yes Final airway type: endotracheal airway Successful airway: ETT Cuffed: yes Successful intubation technique: video laryngoscopy Adjuncts used in placement: intubating stylet and cricoid pressure Endotracheal tube insertion site: oral Blade: Nettles Blade size: #3 ETT size (mm): 7.0 Cormack-Lehane Classification: grade I - full view of glottis Placement verified by: chest auscultation and capnometry Measured from: lips ETT to lips (cm): 21 Number of attempts at approach: 1 Number of other approaches attempted: 0 Authorizing ProviderResult TypeResult StatusJosue Walters MDANESTHESIA ORDERABLESFinal Result documented in this encounter Visit Diagnoses * Anesthesia Postprocedure Evaluation - Francisco J Garcia MD - 12/18/2024 9:24 PM EST Patient: Abbey Garcia Procedure Summary Date: 12/18/24 Room / Location: [facility] OPERATING ROOM 13 / [facility] Operating Room Anesthesia Start: 1907 Anesthesia Stop: Procedures: LAPAROSCOPY, DIAGNOSTIC (Abdomen) LYSIS, ADHESIONS (Abdomen) CLOSURE OF INTERNAL HERNIA SPACE, LAPAROSCOPIC (Abdomen) Diagnosis: Obstructed internal hernia (Obstructed internal hernia [K45.0]) Surgeons: Donnie Cesar MD Responsible Provider: Josue Walters MD Anesthesia Type: general ASA Status: 3 Anesthesia Type: general Vitals Value Taken Time BP 121/61 12/18/24 21:15 Temp 36.1 ??C (97 ??F) 12/18/24 20:30 Pulse 91 12/18/24 21:23 Resp 16 12/18/24 21:23 SpO2 98 % 12/18/24 21:23 Vitals shown include unfiled device data. Anesthesia Post Evaluation Patient location during evaluation: PACU Patient participation: complete - patient participated Level of consciousness: awake and alert Pain management: adequate Airway patency: patent Cardiovascular status: acceptable Respiratory status: acceptable and room air Hydration status: acceptable Patient is hemodynamically stable and is able to be discharged from PACU per anesthesia protocol. No notable events documented. 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 (+) Acquired hypothyroidism (+) Hypothyroidism (+) Type 2 diabetes mellitus without complication, without long-term current use of insulin (CMS/HCC) GI N/V for 3 days; NG insitu--pt states nausea and vomiting has abated (+) GERD (gastroesophageal reflux disease) /Renal Cr 0.59 (+) Acute renal failure superimposed on chronic kidney disease (+) Calculus of kidney Neuro/Psych (+) Headache (+) Migraine Pulmonary Pt denies chronic lung issues requiring inhalers (+) Aspiration pneumonia of left lower lobe due to vomit (CMS/HCC) (+) Asthma (+) Community acquired pneumonia of left lower lobe of lung Other (+) Arthritis of right knee (+) Osteoarthritis Clinical information reviewed: Allergies Meds Physical Exam Airway Mallampati: II TM distance: >3 FB Neck ROM: full Cardiovascular - normal exam Dental - normal exam Pulmonary - normal exam Neurological Abdominal Abdomen: tender Anesthesia Plan ASA 3 general (Discussed RSI/GA/OETT with pt who agrees to proceed. Cardiac issues discussed. PONV addressed) The patient is not a current smoker. Patient did not smoke on day of procedure. Education provided regarding risk of obstructive sleep apnea. intravenous induction Postoperative pain plan includes opioids. Trial extubation is planned. Anesthetic plan and risks discussed with patient. Use of blood products discussed with patient who consented to blood products. Plan discussed with CAA and resident. Additional Equipment Requests documented in this encounter Administered Medications Medication OrderMAR ActionAction DateDoseRateSite calcium chloride 100 mg/mL (10 %) intravenous syringe intravenous, As needed, Starting on Wed12/18/24 at 1945, Anesthesia Intraprocedure Given12/18/2024 7:45 PM [id number]/18/2024 7:37 PM KSA423 mg ceFAZolin (Ancef) injection intravenous, As needed, Starting on Wed12/18/24 at 1923, Anesthesia Intraprocedure Given12/18/2024 7:23 PM EST2,000 mg dexAMETHasone (Decadron) injection intravenous, As needed, Starting on Wed12/18/24 at 1921, Anesthesia Intraprocedure Given12/18/2024 7:21 PM EST8 mg esmolol (Brevibloc) injection intravenous, As needed, Starting on Wed12/18/24 at 1914, Anesthesia Intraprocedure Given12/18/2024 7:14 PM EST30 mg fentaNYL (Sublimaze) injection intravenous, As needed, Starting on Wed12/18/24 at 1914, Anesthesia Intraprocedure Given12/18/2024 8:27 PM EST50 sofOorsd30/03/2025 8:13 PM EST25 mcgGiven 12/18/2024 8:02 PM EST50 mcg lidocaine HCl (Xylocaine) 20 mg/mL (2 %) injection intravenous, As needed, Starting on Wed12/18/24 at 1914, Anesthesia Intraprocedure Given12/18/2024 7:14 PM EST60 mg midazolam (Versed) injection intravenous, As needed, Starting on Wed12/18/24 at 1908, Anesthesia Intraprocedure Given12/18/2024 7:08 PM EST2 mg ondansetron (Zofran) injection intravenous, As needed, Starting on Wed12/18/24 at 2018, Anesthesia Intraprocedure Given12/18/2024 8:18 PM EST4 mg propofol (Diprivan) 10 mg/mL infusion intravenous, As needed, Starting on Wed12/18/24 at 1914, Anesthesia Intraprocedure Given12/18/2024 7:14 PM [id number] mg rocuronium (ZeMuron) injection intravenous, As needed, Starting on Wed12/18/24 at 1925, Anesthesia Intraprocedure Given12/18/2024 8:07 PM EST20 [id number]/18/2024 7:45 PM EST10 ksBripz0712/18/2024 7:25 PM EST40 mg sodium chloride 0.9 % infusion 100 mL/hr, intravenous, Continuous, Starting on Wed12/17/24 at 1230, For 1 day Given12/18/2024 8:22 PM [id number] mLContinued by Gqbubcphnx87/03/2025 7:00 PM EST 100 mL/hr100 mL/hrNew Bag12/18/2024 3:29 AM CGI560 mL/hr100 mL/hr succinylcholine (Anectine) injection intravenous, As needed, Starting on Wed12/18/24 at 1914, Anesthesia Intraprocedure Given12/18/2024 7:14 PM [id number] mg sugammadex (Bridion) injection intravenous, As needed, Starting on Wed12/18/24 at 2020, Anesthesia Intraprocedure Given12/18/2024 8:20 PM [id number] mgdocumented in this encounter Care Teams Team MemberRelationshipSpecialtyStart DateEnd Thomas Alas MD [id number] [phone] PCP - GeneralFamily Medicine08/17/24documented as of this encounter
--- OUTSIDE RECORDS SUMMARY | 2024-12-18 20:00 | XMS_ITS | Encounter Summary ---
Author Organization [facility] Address [address] [place] [address] Care Team Providers Care Manager Multicultural Name Role Phone Thomas Alas MD Primary Care Provider [phone] Reason for Visit * Auth/Cert (Routine)SpecialtyDiagnoses / ProceduresReferred By ContactReferred To Contact Diagnoses Partial bowel obstruction (CMS/HCC) Partial Small Bowel Obstruction Procedures NO CODED SERVICE Anne Marie Scott MD [address] [place] [phone] Phone: tel: fax: [facility] 6AB Ortho Surgery [address] [facility] [place] [address] Phone: tel: Referral IDStatusReasonStart DateExpiration DateVisits RequestedVisits [id number] Encounter Details DateTypeDepartmentCare Team (Latest Contact Info)Goszjxxixxa40/03/2025 8:00 PM EST - 12/18/2024 9:45 PM ESTSurgery [facility] Main Operating Room [address] [place] [address] Donnie Cesar MD [address] [place], [place] [id number] DIAGNOSTIC LAPAROSCOPY [09150 (CPT??)] Social History Tobacco UseTypesPacks/DayYears UsedDateSmoking Tobacco: NeverSmokeless Tobacco: NeverAlcohol UseStandard Drinks/WeekCommentsNot Currently0 (1 standard drink = 0.6 oz pure alcohol)[facility] UtilitiesAnswerDate RecordedIn the past 12 [...] or living in a skilled nursing (including now)?No12/17/2024Hunger Vital SignAnswerDate RecordedWithin the past 12 months, you worried that your food would run out before you got the money to buymore.Never true12/17/2024Ran Out of Food in the Last YearNot on file 12/17/2024CommentsNoSex and Gender InformationValueDate RecordedSex Assigned at RgyloMsvrqc52/03/2025 3:45 PM EDTLegal LqqUzhcyi74/30/2022 12:07 AM EDTGender FjhppezpLqcxry74/03/2025 3:45 PM EDTSexual OrientationHeterosexual or Doqnajse18/03/2025 3:45 PM EDTdocumented as of this encounter Last Filed Vital Signs Vital SignReadingTime TakenCommentsBlood Axsvezxl799/6512/18/2024 9:30 PM EST Ahgxl858912/18/2024 9:30 PM ZRUKrlpoywqgou77.1 ??C (97 ??F)12/18/2024 8:30 PM EST Respiratory Dpwx689702/18/2024 9:30 PM ESTOxygen Dpqsvnvwkz23%12/18/2024 9:30 PM ESTInhaled Oxygen Concentration--Zunpfs24.4 kg (186 lb 1.1 oz)12/18/2024 4:29 AM LHROggfon445.6 cm (5' 6 )12/17/2024 10:09 AM ESTBody Mass Index28.6412/17/2024 10:09 AM ESTdocumented in this encounter Functional Status * QuestionAnswerDate of TjvpeslcetWduqerJG485/ 9:30 PM Alyce Hedrick EXSpynp1157/03/2025 9:30 PM Alyce Hedrick RNHeart Rate PxtiosEdfcnjh49/03/2025 6:35 PM Cris GarciaaPatient JwglexuaPdrfg32/03/2025 6:35 PM Sarai Garcia * Qureshi Fall RiskQuestionAnswerDate of AssessmentAuthorHistory of Falling, Immediate or Within 3 Trlcnt145 10:31 AM Adriano Klein RNSecondary Uxkfgbuue9906/03/2025 10:31 AM Adriano Klein RNAmbulatory Oli094 10:31 AM Adriano Klein RNIntravenous Therapy/Heparin Mdyj162502/18/2024 10:31 AM Adriano Klein RNGait/Dxkxtgoxqdqn557/03/2025 10:31 AM Adriano Klein RNMental Qioffd348/03/2025 10:31 AM Adriano Klein RNMorse Fall Risk Wzhxx108912/18/2024 10:31 AM Adriano Klein RN * Cyrus ScaleQuestionAnswerDate of AssessmentAuthorBraden No Risk Interventions Continue to assess patient according to level of care12/18/2024 10:31 AM Adriano Drake RNSensory Ayryrezaaeq997/03/2025 10:31 AM Adriano Klein RN Qvcmjxng295/03/2025 10:31 AM Adriano Klein QQLhqjwznv148/03/2025 10:31 AM Adriano Klein RNMobility4102/18/2024 10:31 AM Adriano Klein RNNutrition 211 10:31 AM Adriano Klein, RNFriction and Zhcjy96202/18/2024 10:31 AM Adriano Klein RNBraden Scale Wxdot729212/18/2024 10:31 AM Adriano Klein RN * Patient's Stated Pain GoalAnswerDate of ZbkrohhwqgGoknlz920/03/2025 9:26 PM Alyce Hedrick RN * Sterling Fall Risk InterventionsQuestionAnswerDate of AssessmentAuthor Sterling Fall Risk HqzknyqntaxzaDqmjkkfz13/03/2025 10:31 AM Adriano Klein RN * Pain Assessment TimerQuestionAnswerDate of AssessmentAuthorRestart Pain Assessment GvtpzUhv33/03/2025 9:26 PM Alyce Hedrick RN * Sepsis Model ScoresQuestionAnswerDate of AssessmentAuthorEarly Detection of Sepsis Score2.26102/18/2024 9:45 PM DARNELLChronicles, BatchqEarly Detection of Sepsis Score0.6102/18/2024 9:31 PM DARNELLChronicles, Batchq * Pain AssessmentQuestionAnswerDate of AssessmentAuthorPain LocationAbdomen 12/18/2024 10:31 AM Adriano Klein RNPain InterventionsMedication (See MAR) 12/18/2024 9:26 PM Alyce Hedrick RNPain HuhasFwgsubn31/02/2025 10:30 AM Adriano Klein RNResponse to Interventionsno ajppnjrqaoi75/03/2025 4:02 PM Adriano Klein RNPain TypeChronic pain12/18/2024 10:31 AM Adriano Klein RNClinical ProgressionNot pmaymgc3912/18/2024 10:31 AM Adriano Klein RNPain Assessment0-10102/18/2024 9:26 PM Alyce Hedrick RN * Pain ScoreAnswerDate of EyzagexzexZkeesx987/03/2025 9:26 PM Alyce Hedrick RN * Audit Alcohol ScreeningQuestionAnswerDate of AssessmentAuthorTo your knowledge, has alcohol ever caused significant problems for the patient? (e.g., significantdistress to patient or those close to patient or impairment in social, occupational, or other important areas of functioning)No12/17/2024 10:13 AM Arline Lovelace RNBrief counselling was offered to the patientNo 12/17/2024 10:13 AM Arline Lovelace RNReferral for addictions treatment was ptzwakuRl43/02/2025 10:13 AM Arline Lovelace RNHow often do you have a drink containing alcohol? 10:13 AM Arline Lovelace RNHow many standard drinks containing alcohol do you have on a typical day?No12/17/2024 10:13 AM Arline Lovelace RNHow often do you have six or more drinks on one occasion?0 12/17/2024 10:13 AM Arline Lovelace RNAudit-C Ughjp08502/17/2024 10:13 AM Arline Paredes RN * MEWS SCOREQuestionAnswerDate of AssessmentAuthorMEWS GRXNH262 6:01 PM DARNELLChronicles, Batchq * Patient BehaviorsAnswerDate of AssessmentAuthorFacial hkdrohwqt30/03/2025 9:26 PM Alyce Hedrick RN * Deterioration Index ScoreQuestionAnswerDate of AssessmentAuthorDeterioration Index Score24.6612/18/2024 9:31 PM ESTChronicles, Batchq * Head, Ears, Eyes, Nose, and Throat (HEENT)QuestionAnswerDate of Assessment AuthorHead, Ears, Eyes, Nose, and Throat (WDL)WDL102/18/2024 9:30 PM Alyce Shields RNR EyeMildly impaired cdhpiy0312/18/2024 6:35 PM Radha EmmaL EyeMildly impaired gexffq9112/18/2024 6:35 PM Amelia GarciaseOther (Comment)12/18/2024 10:31 AM Adriano Klein RNHead and FaceSymmetrical 12/18/2024 10:30 AM Angelica Cardenas RN * Short [...] Risk LevelQuestionAnswerDate of AssessmentAuthorMobility zoneLow (Green Zone)12/18/2024 10:31 AM Adriano Klein RNMorse fall risk zoneLow (Green Zone)12/18/2024 10:31 AM Adriano Klein RNMental status questionaire zone Low (Green Zone)12/18/2024 10:31 AM Adriano Klein RN * Skin Assessment Sign offQuestionAnswerDate of AssessmentAuthorDual Sign-off - Admission/Slrhesiizeavmhn882/02/2025 10:30 AM Adriano Klein RNAny new wounds identified on admission/transfer?No12/17/2024 10:30 AM Adriano Klein RN * QuestionAnswerDate of AssessmentAuthorHead of Bed ElevatedHOB less than 20 12/18/2024 9:30 PM ESTSchaffer, Alyce, RN * Vital SignsQuestionAnswerDate of OmstywajlpJgzvqsMW041/6512/18/2024 9:30 PM Alyce Hedrick, PFWbco6850/03/2025 8:30 PM Alyce Hedrick, RN Temp hvgXsdaobbo43/03/2025 8:30 PM Alyce Hedrick, IWIhlra5982/03/2025 9:30 PM Alyce Hedrick, WWDsif9187/03/2025 9:30 PM Alyce Hedrick, RXWkS68236/03/2025 9:30 PM Alyce Hedrick, RNHeart Rate OlruccDptchnl51/03/2025 6:35 PM Kamille Garcia LocationLeft arm12/18/2024 6:35 PM Kamille Garcia YohbohOjkyodzkz01/03/2025 6:35 PM Arcelia Garcia (mmHg)8112/18/2024 9:30 PM Alyce Hedrick RNPulse rate from Plethysmogram (bpm)8812/18/2024 9:30 PM Alyce Hedrick, RNPatient ApbftrarPdjfy93/03/2025 6:35 PM Sarai Garcia * QuestionAnswerDate of AssessmentAuthorLevel of TlxpmkqblialbPvpxj79/03/2025 9:30 PM Alyce Hedrick, RNOrientation LevelOriented X4102/18/2024 9:30 PM Alyce Hedrick, RNCognitionFollows aazeuikq43/03/2025 9:30 PM Alyce Shields, CRWbvqvcUefga91/03/2025 9:30 PM Alyce Hedrick, RN * QuestionAnswerDate of AssessmentAuthorCardiac CpttgjIYK27/03/2025 9:30 PM Alyce Shields, RNCardiac WrsalabymqYzntypi42/03/2025 9:30 PM Alyce Hedrick, RNHeart SoundsS1, S212/18/2024 8:30 PM Alyce Hedrick, RN * GastrointestinalQuestionAnswerDate of AssessmentAuthorLast BM Olxg03435 12/17/2024 10:30 AM Adriano Klein, KAITLINassing JmuglaHdk91/03/2025 10:31 AM Adriano Klein RNAbdominal UxsbleolexCtwqqmoxj91/03/2025 9:30 PM Alyce Shields RNBowel Sounds (All Quadrants)Bmmngvmvcx38/03/2025 9:30 PM Alyce Hedrick RNGastrointestinal (WDL)X102/18/2024 9:30 PM Alyce Shields, RNAbdomen InspectionSoft;Xomasyqwykfz52/03/2025 9:30 PM Alyce Hedrick RNGastrointestinal LbgklodeZpucey18/03/2025 8:45 PM Alyce Shields RNBowel OvfyipdhbbjfKn06/03/2025 10:31 AM Adriano Klein RNBowel SoundsAll knujrmjyn48/03/2025 8:30 PM Alyce Hedrick RN * Peripheral VascularQuestionAnswerDate of AssessmentAuthorPeripheral Vascular (WDL)WDL102/18/2024 9:30 PM Alyce Hedrick RN * MusculoskeletalQuestionAnswerDate of AssessmentAuthorMusculoskeletal (WDL)WDL 12/18/2024 9:30 PM Alyce Hedrick RN * PsychosocialQuestionAnswerDate of AssessmentAuthorPsychosocial (WDL)WDL 12/18/2024 10:31 AM Adriano Klein RN * Qureshi Fall RiskQuestionAnswerDate of AssessmentAuthorHistory of Falling, Immediate or Within 3 Kiwjsx694 10:31 AM Adriano Klein RNSecondary Wovkiafsh9792/03/2025 10:31 AM Adriano Klein RNAmbulatory Gpe122 10:31 AM Adriano Klein RNIntravenous Therapy/Heparin Vqpy035202/18/2024 10:31 AM Adriano Klein RNGait/Nfjcykrlowan650/03/2025 10:31 AM Adriano Klein RNMental Vejisl612/03/2025 10:31 AM Adriano Klein RNMorse Fall Risk Gnogc830212/18/2024 10:31 AM Adriano Klein RN * Cyrus ScaleQuestionAnswerDate of AssessmentAuthorBraden No Risk Interventions Continue to assess patient according to level of care12/18/2024 10:31 AM Adriano Drake, RNSensory Terajbaxwnh421/03/2025 10:31 AM Adriano Klein RN Aklgyfto456/03/2025 10:31 AM Adriano Klein, KJJlipseoh507/03/2025 10:31 AM Adriano Klein RNMobility4102/18/2024 10:31 AM Adriano Klein RNNutrition 10:31 AM Adriano Klein, RNFriction and Phzxr99502/18/2024 10:31 AM Adriano Klein RNBraden Scale Sewhp683412/18/2024 10:31 AM Adriano Klein RN * CardiacQuestionAnswerDate of AssessmentAuthorCardiac (WDL)WDL102/18/2024 10:31 AM Adriano Klein RN * RespiratoryQuestionAnswerDate of AssessmentAuthorBilateral Breath SoundsClear 12/18/2024 8:30 PM Alyce Hedrick RNRespiratory PatternNormal 12/18/2024 9:30 PM Alyce Hedrick RNChest AssessmentChest expansion vurhynuxvoh42/03/2025 9:30 PM Alyce Hedrick RNRespiratory (WDL)X 12/18/2024 9:30 PM Alyce Hedrick RNRespiratory EffortUnlabored 12/18/2024 9:30 PM Alyce Hedrick RNRespiratory Depth/RhythmRegular 12/18/2024 9:30 PM Alyce Hedrick RNBreath SoundsBilateral breath vmyxel7912/18/2024 8:30 PM Alyce Hedrick RN * Charting TypeQuestionAnswerDate of AssessmentAuthorCharting TypeShift xojaffxmiy91/03/2025 10:31 AM Adriano Klein RN * Patient's Stated Pain GoalAnswerDate of DtgqrrdrtsMbklpq776/03/2025 9:26 PM Alyce Hedrick RN * Values/BeliefsQuestionAnswerDate of AssessmentAuthorCultural Requests During Oyfhaucrcgkbumxuvrn56/02/2025 10:13 AM Arline Lovelace RNSpiritual Requests During VjcpvomquhovdniSzxsjsrz20/02/2025 10:13 AM Arline Lovelace RN * GenitourinaryQuestionAnswerDate of AssessmentAuthorGenitourinary (WDL)X 12/18/2024 9:30 PM Alyce Hedrick RNGenitourinary SymptomsNone 12/18/2024 9:30 PM Alyce Hedrick, DEE * NeurologicalQuestionAnswerDate of AssessmentAuthorNeuro (WDL)WDL102/18/2024 10:31 AM Adriano Klein RN * Safe EnvironmentQuestionAnswerDate of AssessmentAuthorArm Bands OnID;Allergies 12/18/2024 10:31 AM Adriano Klein RNSide Rails/Bed Safety2/411 10:31 AM Adriano Klein RNBed BjkzhgDxt07/03/2025 10:31 AM Adriano Klein RNThe Patient's Environment is PjhdRtx79/03/2025 10:31 AM Adriano Klein RN * MobilityQuestionAnswerDate of AssessmentAuthorProvider ZehmzcbxMmv12/03/2025 10:31 AM Adriano Klein RNRestingchair12/18/2024 10:31 AM Adriano Klein RNActivity PerformedAmbulated in room;Walked to liawlwot86/03/2025 10:31 AM Adriano Klein RNAmbulation ResponseTolerated well12/18/2024 10:31 AM Adriano Drake RNRepositionedTurns self12/18/2024 10:31 AM Adriano Klein RNHeels/FeetFoot of bed zgfcnbun78/02/2025 12:00 PM Adriano Klein RNRange of MotionActive;All ygskqnqqcnc23/03/2025 10:31 AM Adriano Klein RNAnti- Embolism DevicesBilateral;Sequential compression devices, below knee12/18/2024 10:31 AM Adriano Klein RNAnti-Embolism KbukjrbbiuuqVzegbok39/03/2025 10:31 AM Adriano Klein RNPositioning FrequencyAble to turn self12/18/2024 10:31 AM Adriano Klein RN * HygieneQuestionAnswerDate of AssessmentAuthorIs Patient Total Care?No 12/18/2024 10:31 AM Adriano Klein RN * Comfort and Environment InterventionsQuestionAnswerDate of AssessmentAuthor ComfortRepositioned;Pain nsqtiylplg02/03/2025 10:31 AM Adriano Klein RN * ADL ScreeningQuestionAnswerDate of AssessmentAuthorDo you snore or wake up gasping for air?Yes12/17/2024 10:10 AM Arline Lovelace RNCan you bring in your CPAP/BiPAP from home?N/A102/17/2024 10:10 AM Arline Lovelace RNPatient's Vision Adequate to Safely Complete Daily FxnqnuhekzDge64/02/2025 10:10 AM Arline Paredes RNPatient's Judgment Adequate to Safely Complete Daily NitjbocwamPwi13/02/2025 10:10 AM Arline Lovelace RNPatient's Memory Adequate to Safely Complete Daily XwkgkjinpdHqf69/02/2025 10:10 AM Arline Lovelace RN Patient Able to Express Needs/QpheixuGqq37/02/2025 10:10 AM Arline Lovelace RNUOCshvkevjYizkmpgxczb00/02/2025 10:10 AM Arline Lovelace RNGrooming Vgjkksqoczb65/02/2025 10:10 AM Arline Lovelace KEQpsujtmPavezdhrygh88/02/2025 10:10 AM Arline Lovelace RNWKOfkhmocZjdzcvnitap41/02/2025 10:10 AM Arline Lovelace RNXUPsgisptobOizhdkzsvmy03/02/2025 10:10 AM Arline Lovelace RNIn/Out Bed Baavvjutypg76/02/2025 10:10 AM Arline Lovelace RNWalks in HomeIndependent 12/17/2024 10:10 AM Arline Lovelace RNWeakness of GhfmWguw32/02/2025 10:10 AM Arline Lovelace RNWeakness of Arms/XgxfsZqjb93/02/2025 10:10 AM Arline Lovelace RNHearing - Right KnsXuewjswzbt99/02/2025 10:10 AM Arline Lovelace RN Hearing - Left WrpRfdzssslla90/02/2025 10:10 AM Arline Lovelace RNWhich is your dominant hand?Right12/17/2024 10:10 AM Arline Lovelace RN * ConsultsQuestionAnswerDate of AssessmentAuthorSpiritual Care Consult NeededYes (Comment)12/17/2024 10:13 AM Arline Lovelace RNSocial Services Consult Needed No12/17/2024 10:13 AM Arline Lovelace RNPalliative Care Consult NeededNo 12/17/2024 10:13 AM Arline Lovelace RN * Therapy ConsultsQuestionAnswerDate of AssessmentAuthorPT Evaluation Needed2 12/17/2024 10:10 AM Arline Lovelace RNOT Evaluation Uobwyw020/02/2025 10:10 AM Arline Lovelace RNSLP Evaluation Tuqhpi891/02/2025 10:10 AM Arline Lovelace RN * Assistive DevicesQuestionAnswerDate of AssessmentAuthorAssistive Devices Tymocrfflc44/02/2025 10:10 AM Arline Lovelace RN * Sterling Fall Risk InterventionsQuestionAnswerDate of AssessmentAuthor Sterling Fall Risk HqzletgsfyjntCgoezyql95/03/2025 10:31 AM Adriano Klein RN * QuestionAnswerDate of JyonfiarcfHiyswdOQCL5341/03/2025 8:27 PM ESTInterface, Device In * Calculated C-SSRS Risk Score (Lifetime/Recent)AnswerDate of AssessmentAuthorNo Risk Pmeoqpysa85/02/2025 10:23 AM Arline Lovelace RN * Suicidal [...] or Self-Interrupted Attempt (Lifetime)No12/17/2024 10:23 AM Arline Paredes RNPreparatory Acts or Behavior (Lifetime)No12/17/2024 10:23 AM Arline Lovelace RN * Pain AssessmentQuestionAnswerDate of AssessmentAuthorPain LocationAbdomen 12/18/2024 10:31 AM Adriano Klein RNPain InterventionsMedication (See MAR) 12/18/2024 9:26 PM Alyce Hedrick RNPain ZedxwWcwigtg00/02/2025 10:30 AM Adriano Klein RNResponse to Interventionsno dgitnothlxa06/03/2025 4:02 PM Adriano Klein RNPain TypeChronic pain12/18/2024 10:31 AM Adriano Klein RNClinical ProgressionNot pbjnwwx0812/18/2024 10:31 AM Adriano Klein RNPain Assessment0-10102/18/2024 9:26 PM Alyce Hedrick RN * NutritionQuestionAnswerDate of AssessmentAuthorDiet GbasPWO36/03/2025 10:31 AM Adriano Klein RNFeedingAble to feed self12/18/2024 10:31 AM Adriano Klein RN * IntegumentaryQuestionAnswerDate of AssessmentAuthorSkin IntegrityOther (Comment)12/18/2024 10:31 AM Adriano Klein RNSkin TurgorNon-tenting 12/18/2024 10:31 AM Adriano Klein RNIntegumentary Additional Assessments Dbnqztc3512/18/2024 10:31 AM Adriano Klein RNIntegumentary (WDL)X102/18/2024 10:31 AM Adriano Klein RNDoes patient have tattoos?Yes12/18/2024 10:31 AM Adriano Klein RN * Pain ScoreAnswerDate of NgwjwydemvLnsppv313/03/2025 9:26 PM Alyce Hedrick RN * [place] Suicide Severity Rating ScaleQuestionAnswerDate of AssessmentAuthor1. Have [...] areas of functioning)No12/17/2024 10:13 AM Arline Lovelace RNBrwilliam counselling was offered to the patientNo 12/17/2024 10:13 AM Arline Lovelace RNReferral for addictions treatment was gykenarMu73/02/2025 10:13 AM Arline Lovelace RNHow often do you have a drink containing alcohol? 10:13 AM Arline Lovelace RNHow many standard drinks containing alcohol do you have on a typical day?No12/17/2024 10:13 AM Arline Lovelace RNHow often do you have six or more drinks on one occasion?0 12/17/2024 10:13 AM Arline Lovelace RNAudit-C Hufqy41302/17/2024 10:13 AM Arline Paredes RN * Drug ScreeningQuestionAnswerDate of AssessmentAuthorHave you used any substances (canabis, cocaine, heroin, hallucinogens, inhalants, etc.) in the past12 months?No12/17/2024 10:13 AM Arline Lovelace RNHave you used any prescription drugs other than prescribed in the past 12 months?No12/17/2024 10:13 AM Arline Lovelace RN * Patient BehaviorsAnswerDate of AssessmentAuthorFacial clzutytcw50/03/2025 9:26 PM Alyce Hedrick RN * QuestionAnswerDate of AssessmentAuthorSkin ColorAppropriate for race12/18/2024 9:30 PM Alyce Hedrick RNSkin Condition/TempWarm;Dry12/18/2024 9:30 PM Alyce Hedrick RN * Modified AldreteQuestionAnswerDate of RcakohviafOkwyuhYpvweazo964/03/2025 9:30 PM Alyce Hedrick RNRespiration2102/18/2024 9:30 PM Alyce Hedrick RNCirculation 9:30 PM Alyce Hedrick RN Nzkrkgtdbuzto838/03/2025 9:30 PM Alyce Hedrick RNOxygen Saturation1 12/18/2024 9:30 PM Alyce Hedrick RNModified Jesi Boink48902/18/2024 9:30 PM Alyce Hedrick RN * Modified [...] Lovelace RN * Weight Loss ScoreAnswerDate of MydaajellqLdmwvt325/02/2025 10:19 AM Arline Lovelace RN * Malnutrition ScoreAnswerDate of XuzredycruJsbrbi618/02/2025 10:19 AM Arline Lovelace RN documented as of this encounter Mental Status * Modified AldreteQuestionAnswerEntry DkplPfljkgOjosuccy735/03/2025 9:30 PM Alyce Shields RNRespiration2102/18/2024 9:30 PM Alyce Hedrick RN Xcaiqtslqlo631/03/2025 9:30 PM Alyce Hedrick RNConsciousness2 12/18/2024 9:30 PM Alyce Hedrick RNOxygen Oypcotdzlr359/03/2025 9:30 PM Alyce Hedrick RNModified Jesi Bzjra57002/18/2024 9:30 PM EST Alyce Ortega RN documented in this encounter Discharge Summaries * Rosa Toledo MD - 12/21/2024 2:02 PM EST Admitting Provider: Anne Marie Scott MD Discharge Provider: No att. providers found Admission Date: 12/17/2024 Discharge Date: 12/21/2024 2:02 PM Primary Discharge Diagnosis Partial bowel obstruction (CMS/HCC) Discharge Disposition Home-Health Care [facility] (06) Code Status at Discharge: Full [...] HYDROcodone-acetaminophen 5-325 mg tablet Commonly known as: Marion hydrocortisone 10 mg tablet Commonly known as: [...] Medications These medications were sent to [facility] - [place], [place] - [address] [place] [address] [place] [address], [facility] [address] acetaminophen 325 mg tablet Activity: activity as tolerated Diet: soft diet Time spent on discharge: >[address] Thomas Alas MD for the opportunity to be involved in this patient's care. Cosigned by Donnie Ceasr MD at 12/26/2024 12:01 PM EST Associated [...] sent through Care Everywhere. * Bowel Obstruction [place]u-pe-[place]au[place] (French) documented in this encounter Medications at Time of Discharge MedicationSigDispense QuantityRefillsLast FilledStart DateEnd Date acetaminophen (Tylenol) 325 mg tablet Take 650 mg by mouth every 4 (four) hours if needed for mild pain (1-3 pain score). acetaminophen (Tylenol) 325 mg tablet Indications:Partial bowel obstruction (CMS/HCC)Take 2 tablets (650 mg) by mouth every 6 (six) hours for 395 doses. 30 tablet ALBUTEROL INHL Inhale 90 mcg every 6 [...] the skin every 3rd (third) day. HYDROcodone-acetaminophen (Marion) 5-325 mg tablet Take 2 tablets by [...] at bedtime for 99 doses. 30 tablet / sucralfate (Carafate) 1 gram tablet Take 1 [...] (eight) hours for 287 doses. 90 tablet /documented as of this encounter Progress Notes * [...] for: MISAEL , SMOOTHMUSCAB , CERULOPLSM , S4ZXXYUAEYP , TTGA , IGA , TSH , [...] patient would like to establish care with [facility]. The case will be discussed with the attending physician Gastroenterology 6 am to 4 pm weekdays in house: [phone] 4 pm to 6 am or weekends: Please contact the grab operator to page the fellow yardage control clerk * Rosa Toledo MD - 12/21/2024 6:40 AM EST Images from the original note were not included. [facility] General Surgery DAILY PROGRESS NOTE Subjective Patient [...] 2,500 mL, Last Rate: 180.2 mL/hr at 12/20/242208 Imaging ECG 12 lead Normal sinus rhythm [...] toreceive Boost but back to [facility]D at 09. TPN tonight. Dietary Orders (From admission, onward) Start Ordered 12/20/24 1228 Dietary nutrition supplements All meals; Boost Glucose Control; Chocolate; 8 oz; OralUntil discontinued Question Answer Comment Deliver with All meals Select supplement: Boost Glucose Control Flavor: Chocolate Strength: 8 oz Route Oral 12/20/24 1230 12/20/24 09 Clear Liquid Diet Diet effective now Question: Room Service? Answer: No 12/20/24918 Nutrition Risk: High Nutrition Needs: Needs based on: ideal body weight (59.3 kg) Calorie needs: 9551-4041 kcals/day based on 25-30 kcal/kg Protein needs: [...] of Nutrition and Dietetics (AND) and the [place] Society of Enteral and Parenteral Nutrition (ASPEN). Treatment Plan: TPN tonight per home schedule Diet as tolerated Boost GC chocolate TID when advanced to FLD Goals: Weight maintenance Maintain visceral protein Nutrition-related labs (magnesium, phosphorus, BMP) wnl To reach the Clinical Dietitian, please utilize Yodlee chat Wednesday-Wednesday from 8AM-4PM or call extension [phone]. For weekends (Wednesday-Wednesday) and hols, the Clinical Dietitian can be reached via pager ([phone]) from 9AM-3PM. The Clinical Nutrition Department is unable to respond to Yodlee chat messages on Sundays and s. [1] Allergies Allergen Reactions Adhesive Tape-Silicones Other Sensitive to certain adhesive tapes. Redness and itchy. Codeine Nausea And Vomiting Nsaids (Non-Steroidal Anti-Inflammatory Drug) GI intolerance Adhesive Rash * Rosa Toledo MD - 12/20/2024 12:58 PM EST Images from the original note were not included. [facility] General Surgery DAILY PROGRESS NOTE Subjective Patient [...] from the original note were not included. [facility] General Surgery DAILY PROGRESS NOTE Subjective Patient [...] from the original note were not included. [facility] General Surgery DAILY PROGRESS NOTE Subjective Patient [...] and does not contain a result. Assessment/Plan [place] M Jsoe is a 34 y.o. 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 Treatment Plan: Resume HPN schedule per General Surgery Monitor NPO status, reevaluate if prolonged Goals: Weight maintenance Maintain visceral protein Nutrition-related labs (magnesium, phosphorus, BMP) wnl To reach the Clinical Dietitian, please utilize Yodlee chat Wednesday-Wednesday from 8AM-4PM or call extension [phone]. For weekends (Wednesday-Wednesday) and hols, the Clinical Dietitian can be reached via pager ([phone]) from 9AM-3PM. The Clinical Nutrition Department is unable to respond to Yodlee chat messages on Sundays and s. [1] [...] Galaviz MD - 12/17/2024 1:59 PM EST [facility] General Surgery HISTORY & PHYSICAL Reason for [...] Physical Activity: Insufficiently Active (06/30/2023) Received from [facility] Exercise Vital Sign Days of Exercise per Week: 3 days Minutes of Exercise per Session: 10 min Stress: Stress Concern Present (06/30/2023) Received from [facility] [place] [facility] - Occupational Stress Questionnaire Feeling of Stress : Rather much Social Connections: Moderately Integrated (06/30/2023) Received from [facility] Social Connection and Isolation Panel [NHANES] Frequency of Communication with Friends and Family: Twice a week Frequency of Social Gatherings with Friends and Family: Twice a week Attends [employer] Services: More than 4 times per year [...] balloon dilation up to 20 mm at [facility] that was performed in September 2024. The [...] DVT ppx: will hold for now Vilma Gaalviz MD General Surgery Resident, PGY-1 12/17/24 [1] [...] Galaviz MD - 12/17/2024 1:59 PM EST [facility] General Surgery HISTORY & PHYSICAL Reason for [...] Physical Activity: Insufficiently Active (06/30/2023) Received from [facility] Exercise Vital Sign Days of Exercise per Week: 3 days Minutes of Exercise per Session: 10 min Stress: Stress Concern Present (06/30/2023) Received from [facility] [place] [facility] - Occupational Stress Questionnaire Feeling of Stress : Rather much Social Connections: Moderately Integrated (06/30/2023) Received from [facility] Social Connection and Isolation Panel [NHANES] Frequency of Communication with Friends and Family: Twice a week Frequency of Social Gatherings with Friends and Family: Twice a week Attends [employer] Services: More than 4 times per year [...] balloon dilation up to 20 mm at [facility] that was performed in September 2024. The [...] 3rd (third) day. Yes Historical Provider, HYDROcodone-acetaminophen ([place]) 5-325 mg tablet Take 2 tablets by [...] for: MISAEL , SMOOTHMUSCAB , CERULOPLSM , I2VOIXSGWMQ , TTGA , IGA , TSH , FREET4 , AFP Pancreatitis Lab Results Component Value Date CALCIUM 8.4 (L) 12/20/2024 IMAGING: ASSESSMENT AND PLAN Abbey Garcia is a 34 y.o. female with past medical history of essential hypertension, hyperlipidemia, asthma, RICHRA, hypothyroidism, GERD, IBS, fibromyalgia, type 2 diabetes [...] am to 4 pm weekdays in house: [phone] 4 pm to 6 am or weekends: Please contact the grab operator to page the fellow yardage control clerk [1] Past Medical History: Diagnosis Date Adrenal [...] results of study. NG removed. Home with [facility] Discharge plan is to return [...] Work Once Comments: Patient is active with [address] Also uses [facility] ([place]) for home TPN needs. Provider: (Not yet assigned) Question Answer Comment Select all services needed for the patient Home Health Types of Home Health Service needed Senior Care Please indicate your approval for this care by adding your name here: BRIANNA LING 12/18/241744 * Care Plan - Amos Crabtree RN [...] improvement in clinical condition. *READMIT; Tx from [facility] for partial bowel obstruction. Began having abd pain, N/V 2-days prior to admit. NGT placed at OSH. [facility] surg eval'd and reviewed CT, noting free fluid and swirling concerning for internal hernia as pt had hx of tan-en-y gastric bypass. Taken to OR this evening for dx lap, poss resection, poss open. From home w/ [facility]. Diet: Dietary Orders (From admission, [...] Work Once Comments: Patient is active with [address] Also uses [facility] ([place]) for home TPN needs. Provider: (Not yet assigned) Question Answer Comment Select all services needed for the patient Home Health Types of Home Health Service needed Senior Care Please indicate your approval for this care by adding your name here: BRIANNA LING 12/18/24 1745 * Op Note - Donnie Cesar MD - 12/18/2024 7:08 PM EST LAPAROSCOPY, DIAGNOSTIC, LYSIS, ADHESIONS, CLOSURE OF INTERNAL HERNIA SPACE, LAPAROSCOPIC OperativeNote Date: 12/18/2024 Location: [facility] OR Name: Abbey Garcia, : 1990, Diagnosis Pre-op Diagnosis * Obstructed internal hernia [K45.0] Post-op Diagnosis * Obstructed internal hernia [K45.0] Procedures LAPAROSCOPY, DIAGNOSTIC 59947 - [place] LAPS ABD PRTM&OMENTUM DX W/WO SPEC BR/WA SPX LYSIS, ADHESIONS CLOSURE OF INTERNAL HERNIA SPACE, LAPAROSCOPIC Surgeons Primary: Donnie Cesar MD Resident - Assisting: Digna Ynu MD Procedure Summary Anesthesia: General ASA: III Estimated Blood Loss: Minimal Drains: NG/OG Tube Nasogastric Right nostril (Active) Site Assessment Clean;Dry;Intact 12/18/24 1202 [REMOVED] Urethral Catheter Double-lumen 16 Fr. (Removed) Staff: Ad Setter: Jewell Weems RN Relief Ad Setter: Nahed Llanes RN Scrub Person: Celeste Burroughs [...] and closed with a 3-0 Vicryl figure ofeight suture. Hemostasis was achieved. The abdomen was [...] RN - 12/18/2024 5:45 PM EST 12/18/24 1863 Admission Assessment Questions Verify insurance with patient [...] Interested Does the patient have a case management coordinator assigned to them through their insurance? No Living Arrangement (Current/Prior to Hospitalization) Private residence;Home health care (Home with family; 2 story home) Does the patient have history of HHC or SNF? Yes (HHC: Active with [facility], Home Infusions: [facility].) Assistive Device Other (Comment) (Set up for home TPN) Patient's goal for discharge Home with resumption of C services. Was patient reminded that goal for discharge is 11am? No Does the patient have transportation at discharge? Yes Type of Residence Private residence;Home care staff Is PT/OT appropriate? No Is PT/OT ordered? No Is SW consult appropriate? Yes Is SW consult ordered? Yes ([facility] has ordered SW consult for HHC) Do you understand the benefits of MyChart? Yes Were you able to send link and activate MyChart? MyChart already active documented in this encounter Plan of Treatment DateTypeDepartmentCare Team (Latest Contact Info)Svklkteyazb33/13/2025 3:00 PM ESTOffice Visit [facility] [address] [place] [phone] Donnie Cesar MD [address] [place] [address] 01/31/2025 11:00 AM ESTOffice Visit [facility] [address] [place] [address] Wali Collins MD [address] [place] [phone] documented as of this encounter Procedures Procedure NamePriorityDate/TimeAssociated DiagnosisCommentsPOCT GLUCOSE METER UNSOLICITED BWEVPCDYmdfabz28/06/2025 11:46 AM EST POCT GLUCOSE METER UNSOLICITED UOMWWMDVtmmtsw05/06/2025 5:59 AM EST KBTUtvnaoh68/06/2025 5:11 AM EST BASIC METABOLIC JOEXEWeehgac00/06/2025 5:11 AM EST POCT GLUCOSE METER UNSOLICITED PZLXJBQQbfddst15/05/2025 11:27 PM EST POCT GLUCOSE METER UNSOLICITED TFHUMAYLyedlfq87/05/2025 5:[address] ABDOMEN PELVIS W IV UXWKXXMRYCMT14/05/2025 2:14 PM EST ECG 12-DNBTVZSE91/05/2025 12:22 PM EST POCT GLUCOSE METER UNSOLICITED CMJKBNTMtoaqke80/05/2025 11:44 AM EST XR ABDOMEN 1 CVEPAGVO66/05/2025 10:26 AM EST LACTIC ACID WITH 4 HOUR QHKCHXEYQR16/05/2025 10:20 AM EST AVDOLGI9312/20/2024 10:20 AM EST IRON AND YTOLExtablp57/05/2025 6:29 AM EST Anemia due to acute blood loss GXXDqcfyjh28/05/2025 6:29 AM EST PHOSPHORUSAdd-On12/20/2024 6:29 AM EST BASIC METABOLIC QGTDKOymtcbm12/05/2025 6:29 AM EST POCT GLUCOSE METER UNSOLICITED KFPMZGXUbwvwyf70/05/2025 6:17 AM EST POCT GLUCOSE METER UNSOLICITED OGEKFFGQaxjwjd98/05/2025 12:05 AM EST POCT GLUCOSE METER UNSOLICITED UGOJCXOLdornhs68/04/2025 5:57 PM EST FL SMALL BOWEL AJYELHONID68/04/2025 1:15 PM EST POCT GLUCOSE METER UNSOLICITED WXYHIYINyopiih12/04/2025 11:09 AM EST BYQYpuhgbz27/04/2025 7:49 AM EST PHOSPHORUSAdd-On12/19/2024 7:49 AM EST MAGNESIUMAdd-On12/19/2024 7:49 AM EST BASIC METABOLIC LLUOPFncduup15/04/2025 7:49 AM EST POCT GLUCOSE METER UNSOLICITED GHSMPHSBnmvoqy05/04/2025 6:34 AM EST POCT GLUCOSE METER UNSOLICITED JXEUIAEIphugqg73/04/2025 12:06 AM EST REPAIR, HERNIA, TONDWZXLIDAU49/03/2025 7:08 PM EST Obstructed internal hernia LYSIS, HGREUYEGZ87/03/2025 7:08 PM EST Obstructed internal hernia NH LAPS ABD PRTM&OMENTUM DX W/WO SPEC BR/WA SPX102/18/2024 7:08 PM EST Obstructed internal hernia POCT GLUCOSE METER UNSOLICITED ZCPQNMWSortczd53/03/2025 5:47 PM EST XR TRANSFER OF OUTSIDE AVRUTMtesxjr38/03/2025 1:10 PM EST XR TRANSFER OF OUTSIDE TRGQMQzrnfwr92/03/2025 1:10 PM EST XR TRANSFER OF OUTSIDE BYDKLDdieoha90/03/2025 1:10 PM EST XR TRANSFER OF OUTSIDE EAHCHHukpfno07/03/2025 1:[address] TRANSFER OF OUTSIDE QELYYKqfbybb43/03/2025 1:[address] TRANSFER OF OUTSIDE UNRPXLebfwlu89/03/2025 1:[address] TRANSFER OF OUTSIDE CLHPZUzwycre76/03/2025 1:[address] TRANSFER OF OUTSIDE RGGXEUeoynfg09/03/2025 1:[address] TRANSFER OF OUTSIDE AYVEJGhmynbu09/03/2025 1:10 PM EST EDQHlfcsyq64/02/2025 1:05 PM EST COMPREHENSIVE METABOLIC MAKCFUsetmmk61/02/2025 1:05 PM EST XR CHEST 1 FVXAWttentp19/02/2025 12:58 PM EST documented in this encounter Results * POCT glucose meter (12/21/2024 11:46 AM EST)ComponentValueRef RangeTest Method Analysis TimePerformed AtPathologist SignatureGlucose AES68979 - 105 mg/dL 12/21/2024 12:16 PM [facility])Comment:elacumskySpecimen (Source)Anatomical Location / LateralityCollection Method / VolumeCollection TimeReceived TimeBloodCapillary blood specimen / Gbsghhw1812/21/2024 11:46 AM EST12/21/2024 12:16 PM EST Narrative [facility]) - 12/21/2024 12:16 PM EST Waived Testing in the ED is performed under the ED CLIA certificate #[id number]. Authorizing ProviderResult TypeResult StatusMallory Tyler MTCECY BLOOD ORDERABLESFinal ResultPerforming OrganizationAddressCity/State/ZIP CodePhone Number [facility]) [address] [place] [address] * (ABNORMAL) POCT glucose meter (12/21/2024 5:59 AM EST)ComponentValueRef Range Test MethodAnalysis TimePerformed AtPathologist SignatureGlucose KGK403(H)70 - 105 mg/dL12/21/2024 6:10 AM [facility] ([facility])Comment:sgoodma Specimen (Source)Anatomical Location / LateralityCollection Method / Volume Collection TimeReceived TimeBloodCapillary blood specimen / Tzalode0812/21/2024 5:59 AM EST12/21/2024 6:10 AM EST Narrative [facility] ([facility]) - 12/21/2024 6:10 AM EST Waived Testing in the ED is performed under the ED CLIA certificate #[id number]. Authorizing ProviderResult TypeResult StatusMallorkatarina ROBLERO BLOOD ORDERABLESFinal ResultPerforming OrganizationAddressCity/State/ZIP CodePhone Number [facility]) [address] [facility] [place] [address] * (ABNORMAL) CBC (12/21/2024 5:11 AM EST)ComponentValueRef RangeTest Method Analysis TimePerformed AtPathologist SignatureAuto WBC2.92(L)4.00 - 10.60 10*3/uL12/21/2024 5:49 AM [facility])RBC3.19(L)3.80 - 5.00 10*6/uL12/21/2024 5:49 AM [facility])Hemoglobin9.5(L)12.0 - 15.0 g/dL12/21/2024 5:49 AM [facility])Oskcpnoyty69.7(L)36.0 - 45.0 %12/21/2024 5:49 AM [facility])MCV90.082.0 - 98.0 fL 12/21/2024 5:49 AM [facility])MCH29.827.0 - 33.0 pg 12/21/2024 5:49 AM [facility])MCHC33.132.0 - 35.0 g/dL 12/21/2024 5:49 AM [facility])RDW15.5(H)11.5 - 15.0 % 12/21/2024 5:49 AM [facility])Sqaczsowa474234 - 400 10*3/uL 12/21/2024 5:49 AM [facility])Specimen (Source)Anatomical Location / LateralityCollection Method / VolumeCollection TimeReceived Time BloodVenous blood specimen / UnknownExisting Catheter / Izsqigd2112/21/2024 5:11 AM EST12/21/2024 5:34 AM EST Narrative Authorizing ProviderResult TypeResult StatusDajermaine ROBLERO BLOOD ORDERABLES Final ResultPerforming OrganizationAddressCity/State/ZIP CodePhone Number [facility]) [address] [place] [address] * (ABNORMAL) Basic metabolic panel (12/21/2024 5:11 AM EST)ComponentValueRef RangeTest MethodAnalysis TimePerformed AtPathologist OhqjqrhhnWsdyvs926659 - 145 mmol/L102/21/2024 6:20 AM [facility])Potassium3.93.5 - 5.1 mmol/L102/21/2024 6:20 AM [facility])Essfrjkn37103 - 107 mmol/L102/21/2024 6:20 AM [facility])WZ12506 - 31 mmol/L 12/21/2024 6:20 AM [facility])HSE471 - 25 mg/dL12/21/2024 6:20 AM [facility])Creatinine0.55(L)0.60 - 1.20 mg/dL 12/21/2024 6:20 AM [facility])Uofntgs814(H)70 - 100 mg/dL 12/21/2024 6:20 AM [facility])Calcium8.0(L)8.6 - 10.3 mg/dL 12/21/2024 6:20 AM [facility])Anion Pnv397 - 20 mmol/L 12/21/2024 6:20 AM [facility])vNPK246.5>60.0 mL/min/1.73m*2 12/21/2024 6:20 AM [facility])Comment:[facility]???s estimated glomerular filtration rate (eGFR) will no [...] one group of individuals.BUN/Creatinine Ratio21.8102/21/2024 6:20 AM [facility])Specimen (Source)Anatomical Location / LateralityCollection Method / VolumeCollection TimeReceived TimeBloodVenous blood specimen / UnknownExisting Catheter / Glcnwrr9812/21/2024 5:11 AM EST12/21/2024 5:34 AM EST Narrative Authorizing ProviderResult TypeResult StatusBenja Dowd [facility] BLOOD ORDERABLES Final ResultPerforming OrganizationAddressCity/State/ZIP CodePhone Number [facility]) [address] [place] [address] * (ABNORMAL) POCT glucose meter (12/20/2024 11:27 PM EST)ComponentValueRef Range Test MethodAnalysis TimePerformed AtPathologist SignatureGlucose JCL891(H)70 - 105 mg/dL12/20/2024 11:37 PM [facility] ([facility])Comment:sgoodma Specimen (Source)Anatomical Location / LateralityCollection Method / Volume Collection TimeReceived TimeBloodCapillary blood specimen / Obimqjn3912/20/2024 11:27 PM EST12/20/2024 11:37 PM EST Narrative [facility]) - 12/20/2024 11:37 PM EST Waived Testing in the ED is performed under the ED CLIA certificate #[id number]. Authorizing ProviderResult TypeResult StatusAnne Marie Scott [facility] BLOOD ORDERABLESFinal ResultPerforming OrganizationAddressCity/State/ZIP CodePhone Number [facility]) [address] [place] [address] * (ABNORMAL) POCT glucose meter (12/20/2024 5:39 PM EST)ComponentValueRef Range Test MethodAnalysis TimePerformed AtPathologist SignatureGlucose UCV366(H)70 - 105 mg/dL12/20/2024 5:50 PM [facility])Comment:nmakras Specimen (Source)Anatomical Location / LateralityCollection Method / Volume Collection TimeReceived TimeBloodCapillary blood specimen / Pbkjwhb2612/20/2024 5:39 PM EST12/20/2024 5:50 PM EST Narrative [facility] ([facility]) - 12/20/2024 5:50 PM EST Waived Testing in the ED is performed under the ED CLIA certificate #[id number]. Authorizing ProviderResult TypeResult StatusMallorkatarina ROBLERO BLOOD ORDERABLESFinal ResultPerforming OrganizationAddressCity/State/ZIP CodePhone Number [facility] ([facility]) [address] [place] [address] * CT abdomen pelvis w IV contrast [...] Electronically signed: Rai Crespo. Authorizing ProviderResult TypeResult Gregory Barbour PA-CIMG CT PROCEDURES Final Result * ECG 12 lead (12/20/2024 12:22 PM EST)ComponentValueRef RangeTest Method Analysis TimePerformed AtPathologist SignatureVentricular Rowh24YANBU MUSE Atrial Uurx28RSNCO MUSEPR Ufzsrnom817ijWX MUSEQRS AUZMOTGP30dhKV MUSEQT Razewbwx293ocAJ MUSEQTC CALCULATION(BAZETT)472msGE MUSEP Jtiw15fflecpmOI MUSE R-Lxna03hrzpxdeFL MUSET Wave Iryc92hnumhkpAI MUSESpecimen (Source)Anatomical Location / LateralityCollection Method / [...] on 12/20/2024 6:54:54 PM Authorizing ProviderResult TypeResult Gregory Barbour PA-CECG ORDERABLES Final ResultPerforming OrganizationAddressCity/State/ZIP CodePhone Number [facility] * POCT glucose meter (12/20/2024 11:44 AM EST)ComponentValueRef RangeTest Method Analysis TimePerformed AtPathologist SignatureGlucose OXS9561 - 105 mg/dL 12/20/2024 11:55 AM [facility])Comment:kdqhtpy65Fkkabxld (Source)Anatomical Location / LateralityCollection Method / VolumeCollection TimeReceived TimeBloodCapillary blood specimen / Kphfdmr1012/20/2024 11:44 AM EST12/20/2024 11:55 AM EST Narrative [facility] ([facility]) - 12/20/2024 11:55 AM EST Waived Testing in the ED is performed under the ED CLIA certificate #[id number]. Authorizing ProviderResult TypeResult StatusMalzelalem ROBLERO BLOOD ORDERABLESFinal ResultPerforming OrganizationAddressCity/State/ZIP CodePhone Number [facility]) [address] [place] [address] * XR abdomen 1 view (12/20/2024 10:26 [...] 12/19/2024 Procedure Note Beltran Brian MD - 12/20/2024 XR ABDOMEN 1 VIEW 12/20/2024 9:57 AM CLINICAL INDICATIONS: Abdominal pain. COMPARISON: 12/19/2024 IMPRESSION: FINDINGS/IMPRESSION: Residual contrast throughout nondistended large bowel extending to thelevel of the rectum. Overall nonobstructive bowel gas pattern. Epigastric operative changes. Removal of prior gastric drainage tube. Electronically signed: Beltran Brian MD. Authorizing ProviderResult TypeResult StatusJamie Km PA-CIMG XR PROCEDURES Final Result * Lactic acid with 4 hour reflex (12/20/2024 10:20 AM EST)ComponentValueRef RangeTest MethodAnalysis TimePerformed AtPathologist SignatureLactate1.60.5 - 2.2 mmol/L102/20/2024 11:16 AM [facility])Specimen (Source) Anatomical Location / LateralityCollection Method / VolumeCollection Time Received TimeBloodVenous blood specimen / UnknownExisting Catheter / Unknown 12/20/2024 10:20 AM EST12/20/2024 10:31 AM EST Narrative Authorizing ProviderResult TypeResult StatusJamie Km PA-CLAB BLOOD ORDERABLESFinal ResultPerforming OrganizationAddressCity/State/ZIP CodePhone Number [facility]) [address] [place] [address] * (ABNORMAL) CBC (12/20/2024 10:20 AM EST)ComponentValueRef RangeTest Method Analysis TimePerformed AtPathologist SignatureAuto WBC3.62(L)4.00 - 10.60 10*3/uL12/20/2024 10:48 AM [facility])RBC3.26(L)3.80 - 5.00 10*6/uL12/20/2024 10:48 AM [facility])Hemoglobin9.6(L)12.0 - 15.0 g/dL12/20/2024 10:48 AM [facility])Dbrpkrlbam99.7(L) 36.0 - 45.0 %12/20/2024 10:48 AM [facility])MCV88.082.0 - 98.0 fL12/20/2024 10:48 AM [facility])MCH29.427.0 - 33.0 pg 12/20/2024 10:48 AM [facility])MCHC33.432.0 - 35.0 g/dL 12/20/2024 10:48 AM [facility])RDW15.7(H)11.5 - 15.0 % 12/20/2024 10:48 AM [facility])Fktfwplba709339 - 400 10*3/uL 12/20/2024 10:48 AM [facility])Specimen (Source)Anatomical Location / LateralityCollection Method / VolumeCollection TimeReceived Time BloodVenous blood specimen / UnknownExisting Catheter / Ddyttfi1812/20/2024 10:20 AM EST12/20/2024 10:38 AM EST Narrative Authorizing ProviderResult TypeResult StatusCk Barbour PAAlbertCLAB BLOOD ORDERABLESFinal ResultPerforming OrganizationAddressCity/State/ZIP CodePhone Number [facility]) [address] [place] [address] * Iron and TIBC (12/20/2024 6:29 AM EST)ComponentValueRef RangeTest Method Analysis TimePerformed AtPathologist KrhwewbxcWqif3772 - 212 ug/dL12/20/2024 9:44 AM [facility])VLDN444379 - 450 ug/dL12/20/2024 9:44 AM [facility])Iron Hnpdxgtemx8898 - 50 %12/20/2024 9:44 AM EST [facility])VMYS858.0155.0 - 355.0 ug/dL12/20/2024 9:44 AM EST [facility])Specimen (Source)Anatomical Location / Laterality Collection Method / VolumeCollection TimeReceived TimeBloodVenous blood specimen / UnknownExisting Catheter / Ihufuhl2112/20/2024 6:29 AM EST12/20/2024 6:29 AM EST Narrative Authorizing ProviderResult TypeResult StatusChrisadalbreto Collins MTCECY BLOOD ORDERABLESFinal ResultPerforming OrganizationAddressCity/State/ZIP CodePhone Number [facility]) [address] [place] [address] * Phosphorus (12/20/2024 6:29 AM EST)ComponentValueRef RangeTest MethodAnalysis TimePerformed AtPathologist SignaturePhosphorus2.72.5 - 5.0 mg/dL12/20/2024 6:59 AM [facility])Specimen (Source)Anatomical Location / LateralityCollection Method / VolumeCollection TimeReceived TimeBloodVenous blood specimen / UnknownExisting Catheter / Rmdimtv0212/20/2024 6:29 AM EST 12/20/2024 6:29 AM EST Narrative Authorizing ProviderResult TypeResult StatusDajermaine ROBLERO BLOOD ORDERABLES Final ResultPerforming OrganizationAddressCity/State/ZIP CodePhone Number [facility] ([facility]) [address] [place] [address] * (ABNORMAL) CBC (12/20/2024 6:29 AM EST)ComponentValueRef RangeTest Method Analysis TimePerformed AtPathologist SignatureAuto WBC3.80(L)4.00 - 10.60 10*3/uL12/20/2024 6:43 AM [facility])RBC3.32(L)3.80 - 5.00 10*6/uL12/20/2024 6:43 AM [facility])Hemoglobin9.7(L)12.0 - 15.0 g/dL12/20/2024 6:43 AM [facility])Xsazycwvou30.3(L)36.0 - 45.0 %12/20/2024 6:43 AM [facility])MCV88.382.0 - 98.0 fL 12/20/2024 6:43 AM [facility])MCH29.227.0 - 33.0 pg 12/20/2024 6:43 AM [facility])MCHC33.132.0 - 35.0 g/dL 12/20/2024 6:43 AM [facility])RDW15.7(H)11.5 - 15.0 % 12/20/2024 6:43 AM [facility])Icygsdlws942541 - 400 10*3/uL 12/20/2024 6:43 AM [facility])Specimen (Source)Anatomical Location / LateralityCollection Method / VolumeCollection TimeReceived Time BloodVenous blood specimen / UnknownExisting Catheter / Okfeggj1512/20/2024 6:29 AM EST12/20/2024 6:29 AM EST Narrative Authorizing ProviderResult TypeResult StatusBenja ROBLERO BLOOD ORDERABLES Final ResultPerforming OrganizationAddressCity/State/ZIP CodePhone Number [facility]) [address] [place] [address] * (ABNORMAL) Basic metabolic panel (12/20/2024 6:29 AM EST)ComponentValueRef RangeTest MethodAnalysis TimePerformed AtPathologist DwdtrotbfJgomir062500 - 145 mmol/L102/20/2024 6:59 AM [facility])Potassium3.73.5 - 5.1 mmol/L102/20/2024 6:59 AM [facility])Pzhvttjz706(H)98 - 107 mmol/L102/20/2024 6:59 AM [facility])VE94772 - 31 mmol/L 12/20/2024 6:59 AM [facility])PDS102 - 25 mg/dL12/20/2024 6:59 AM [facility])Creatinine0.47(L)0.60 - 1.20 mg/dL 12/20/2024 6:59 AM [facility])Dscitrt6793 - 100 mg/dL 12/20/2024 6:59 AM [facility])Calcium8.4(L)8.6 - 10.3 mg/dL 12/20/2024 6:59 AM [facility])Anion Gap87 - 20 mmol/L 12/20/2024 6:59 AM [facility])lFXM088.2>60.0 mL/min/1.73m*2 12/20/2024 6:59 AM [facility])Comment:The [facility]???s estimated glomerular filtration rate (eGFR) will no [...] one group of individuals.BUN/Creatinine Ratio23. 6:59 AM [facility] ([facility])Specimen (Source)Anatomical Location / LateralityCollection Method / VolumeCollection TimeReceived TimeBloodVenous blood specimen / UnknownExisting Catheter / Vwafple2112/20/2024 6:29 AM EST12/20/2024 6:29 AM EST Narrative Authorizing ProviderResult TypeResult StatusBenja Dowd [facility] BLOOD ORDERABLES Final ResultPerforming OrganizationAddressCity/State/ZIP CodePhone Number [facility]) [address] [place] [phone] * POCT glucose meter (12/20/2024 6:17 AM EST)ComponentValueRef RangeTest Method Analysis TimePerformed AtPathologist SignatureGlucose [id number] - 105 mg/dL 12/20/2024 6:33 AM [facility])Comment:dullomSpecimen (Source)Anatomical Location / LateralityCollection Method / VolumeCollection TimeReceived TimeBloodCapillary blood specimen / Gxuasyf0112/20/2024 6:17 AM EST 12/20/2024 6:33 AM EST Narrative [facility]) - 12/20/2024 6:33 AM EST Waived Testing in the ED is performed under the ED CLIA certificate #[id number]. Authorizing ProviderResult TypeResult StatusAnne Marie Scott [facility] BLOOD ORDERABLESFinal ResultPerforming OrganizationAddressCity/State/ZIP CodePhone Number [facility]) [address] [place] [address] * POCT glucose meter (12/20/2024 12:05 AM EST)ComponentValueRef RangeTest Method Analysis TimePerformed AtPathologist SignatureGlucose [id number] - 105 mg/dL 12/20/2024 12:16 AM [facility])Comment:sgoodmaSpecimen (Source)Anatomical Location / LateralityCollection Method / VolumeCollection TimeReceived TimeBloodCapillary blood specimen / Rdtakbi2412/20/2024 12:05 AM EST12/20/2024 12:16 AM EST Narrative [facility] ([facility]) - 12/20/2024 12:16 AM EST Waived Testing in the ED is performed under the ED CLIA certificate #[id number]. Authorizing ProviderResult TypeResult StatusMalzelalem Scott [facility]KE[facility] BLOOD ORDERABLESFinal ResultPerforming OrganizationAddressCity/State/ZIP CodePhone Number [facility]) [address] [place] [address] * (ABNORMAL) POCT glucose meter (12/19/2024 5:57 PM EST)ComponentValueRef Range Test MethodAnalysis TimePerformed AtPathologist SignatureGlucose XMX547(H)70 - 105 mg/dL12/19/2024 6:08 PM [facility])Comment:elacumsky Specimen (Source)Anatomical Location / LateralityCollection Method / Volume Collection TimeReceived TimeBloodCapillary blood specimen / Twlnboi3312/19/2024 5:57 PM EST12/19/2024 6:08 PM EST Narrative [facility] ([facility]) - 12/19/2024 6:08 PM EST Waived Testing in the ED is performed under the ED CLIA certificate #[id number]. Authorizing ProviderResult TypeResult StatusJoaolorkatarina Scott MDKE[facility] BLOOD ORDERABLESFinal ResultPerforming OrganizationAddressCity/State/ZIP CodePhone Number [facility]) [address] [place] [address] * FL small bowel series (12/19/2024 1:15 [...] from internal hernia repair Comparison: None. Findings: Pony Ride Operator image demonstrates enteric catheter tip in the stomach with a nonspecific bowel gas pattern. There is contrast seen within the colon at 4 hours compatible with no high-grade or complete small bowel obstruction. Procedure Note Ty Meyer MD - 12/19/2024 Report Study: FL SMALL BOWEL SERIES Sign And Symptoms:Abdominal pain. Bowel obstruction. . post op frominternal hernia repair Comparison: None. Findings: Pony Ride Operator image demonstrates enteric catheter tip in the stomach with anonspecific bowel gas pattern. There is contrast seen within the colon at 4 hourscompatible with no high-grade or complete small bowel obstruction. IMPRESSION: Impression: *Contrast seen in the colon at 4 hours compatible with no high-grade or complete small bowel obstruction. Electronically signed: Ty Meyer. Authorizing ProviderResult TypeResult StatusDajermaine CALVILLO FLUOROSCOPY PROCEDURESFinal Result * (ABNORMAL) POCT glucose meter (12/19/2024 11:09 AM EST)ComponentValueRef Range Test MethodAnalysis TimePerformed AtPathologist SignatureGlucose CHE721(H)70 - 105 mg/dL12/19/2024 11:34 AM [facility] ([facility])Comment:elacumsky Specimen (Source)Anatomical Location / LateralityCollection Method / Volume Collection TimeReceived TimeBloodCapillary blood specimen / Kzctokq4312/19/2024 11:09 AM EST12/19/2024 11:34 AM EST Narrative [facility] ([facility]) - 12/19/2024 11:34 AM EST Waived Testing in the ED is performed under the ED CLIA certificate #[id number]. Authorizing ProviderResult TypeResult StatusAnne Marie ROBLERO BLOOD ORDERABLESFinal ResultPerforming OrganizationAddressCity/State/ZIP CodePhone Number [facility] ([facility]) [address], [place] [phone] * (ABNORMAL) Phosphorus (12/19/2024 7:49 AM EST)ComponentValueRef RangeTest MethodAnalysis TimePerformed AtPathologist SignaturePhosphorus1.8(L)2.5 - 5.0 mg/dL12/19/2024 9:55 AM [facility] ([facility])Specimen (Source) Anatomical Location / LateralityCollection Method / VolumeCollection Time Received TimeBloodVenous blood specimen / UnknownExisting Catheter / Unknown 12/19/2024 7:49 AM EST12/19/2024 8:14 AM EST Narrative Authorizing ProviderResult TypeResult StatusBenja ROBLERO BLOOD ORDERABLES Final ResultPerforming OrganizationAddressCity/State/ZIP CodePhone Number [facility]) [address] [place] [address] * Magnesium (12/19/2024 7:49 AM EST)ComponentValueRef RangeTest MethodAnalysis TimePerformed AtPathologist SignatureMagnesium2.01.9 - 2.7 mg/dL12/19/2024 9:55 AM [facility] ([facility])Specimen (Source)Anatomical Location / LateralityCollection Method / VolumeCollection TimeReceived TimeBloodVenous blood specimen / UnknownExisting Catheter / Vnuxwyt0612/19/2024 7:49 AM EST 12/19/2024 8:14 AM EST Narrative Authorizing ProviderResult TypeResult StatusBenja ROBLERO BLOOD ORDERABLES Final ResultPerforming OrganizationAddressCity/State/ZIP CodePhone Number [facility]) [address] [place] [address] * (ABNORMAL) CBC (12/19/2024 7:49 AM EST)ComponentValueRef RangeTest Method Analysis TimePerformed AtPathologist SignatureAuto WBC4.844.00 - 10.60 10*3/uL 12/19/2024 8:55 AM [facility] ([facility])RBC3.47(L)3.80 - 5.00 10*6/uL 12/19/2024 8:55 AM [facility] ([facility])Yfmaillduf29.0(L)12.0 - 15.0 g/dL12/19/2024 8:55 AM [facility] ([facility])Xtxhnhqbdo50.6(L)36.0 - 45.0 %12/19/2024 8:55 AM [facility])MCV85.382.0 - 98.0 fL 12/19/2024 8:55 AM [facility] ([facility])MCH28.827.0 - 33.0 pg 12/19/2024 8:55 AM [facility] ([facility])MCHC33.832.0 - 35.0 g/dL 12/19/2024 8:55 AM [facility] ([facility])RDW14.711.5 - 15.0 %12/19/2024 8:55 AM [facility] ([facility])Eviblzuzn025950 - 400 10*3/uL12/19/2024 8:55 AM [facility] ([facility])Specimen (Source)Anatomical Location / LateralityCollection Method / VolumeCollection TimeReceived TimeBloodVenous blood specimen / UnknownExisting Catheter / Rvjvwaq8412/19/2024 7:49 AM EST 12/19/2024 8:15 AM EST Narrative Authorizing ProviderResult TypeResult StatusDalun Nile ROBLERO BLOOD ORDERABLES Final ResultPerforming OrganizationAddressCity/State/ZIP CodePhone Number [facility] ([facility]) [address] [place] [address] * (ABNORMAL) Basic metabolic panel (12/19/2024 7:49 AM EST)ComponentValueRef RangeTest MethodAnalysis TimePerformed AtPathologist OvlfqwhsoIzefoq286644 - 145 mmol/L102/19/2024 8:37 AM [facility] ([facility])Potassium4.13.5 - 5.1 mmol/L102/19/2024 8:37 AM [facility] ([facility])Nztlcohq63177 - 107 mmol/L102/19/2024 8:37 AM [facility] ([facility])PQ73685 - 31 mmol/L 12/19/2024 8:37 AM [facility] ([facility])QXV632 - 25 mg/dL12/19/2024 8:37 AM [facility] ([facility])Creatinine0.44(L)0.60 - 1.20 mg/dL 12/19/2024 8:37 AM [facility] ([facility])Hfuzpko997(H)70 - 100 mg/dL 12/19/2024 8:37 AM [facility] ([facility])Calcium8.3(L)8.6 - 10.3 mg/dL 12/19/2024 8:37 AM [facility] ([facility])Anion Lbn857 - 20 mmol/L 12/19/2024 8:37 AM [facility] ([facility])xRNJ332.3>60.0 mL/min/1.73m*2 12/19/2024 8:37 AM [facility] ([facility])Comment:[facility]???s estimated glomerular filtration rate (eGFR) will no [...] one group of individuals.BUN/Creatinine Ratio22.7102/19/2024 8:37 AM [facility] ([facility])Specimen (Source)Anatomical Location / LateralityCollection Method / VolumeCollection TimeReceived TimeBloodVenous blood specimen / UnknownExisting Catheter / Pgwptrp7112/19/2024 7:49 AM EST12/19/2024 8:14 AM EST Narrative Authorizing ProviderResult TypeResult StatusDajermaine ROBLERO BLOOD ORDERABLES Final ResultPerforming OrganizationAddressCity/State/ZIP CodePhone Number [facility]) [address] [place] [address] * (ABNORMAL) POCT glucose meter (12/19/2024 6:34 AM EST)ComponentValueRef Range Test MethodAnalysis TimePerformed AtPathologist SignatureGlucose IWH169(H)70 - 105 mg/dL12/19/2024 6:45 AM [facility])Comment:dullom Specimen (Source)Anatomical Location / LateralityCollection Method / Volume Collection TimeReceived TimeBloodCapillary blood specimen / Czluoxe8412/19/2024 6:34 AM EST12/19/2024 6:45 AM EST Narrative [facility]) - 12/19/2024 6:45 AM EST Waived Testing in the ED is performed under the ED CLIA certificate #[id number]. Authorizing ProviderResult TypeResult StatusAnne Marie ROBLERO BLOOD ORDERABLESFinal ResultPerforming OrganizationAddressCity/State/ZIP CodePhone Number [facility]) [address] [place] [address] * (ABNORMAL) POCT glucose meter (12/19/2024 12:06 AM EST)ComponentValueRef Range Test MethodAnalysis TimePerformed AtPathologist SignatureGlucose VNK964(H)70 - 105 mg/dL12/19/2024 12:17 AM [facility] ([facility])Comment:dullom Specimen (Source)Anatomical Location / LateralityCollection Method / Volume Collection TimeReceived TimeBloodCapillary blood specimen / Hrliirn3612/19/2024 12:06 AM EST12/19/2024 12:17 AM EST Narrative [facility]) - 12/19/2024 12:17 AM EST Waived Testing in the ED is performed under the ED CLIA certificate #[id number]. Authorizing ProviderResult TypeResult StatusAnne Marie ROBLERO BLOOD ORDERABLESFinal ResultPerforming OrganizationAddressCity/State/ZIP CodePhone Number [facility] [address] [address] * POCT glucose meter (12/18/2024 5:47 PM EST)ComponentValueRef RangeTest Method Analysis TimePerformed AtPathologist SignatureGlucose PSU0364 - 105 mg/dL 12/18/2024 5:58 PM [facility] ([facility])Comment:sfhuyd9Gnfpooez (Source)Anatomical Location / LateralityCollection Method / VolumeCollection TimeReceived TimeBloodCapillary blood specimen / Gbyxumq9212/18/2024 5:47 PM EST 12/18/2024 5:58 PM EST Narrative [facility] ([facility]) - 12/18/2024 5:58 PM EST Waived Testing in the ED is performed under the ED CLIA certificate #[id number]. Authorizing ProviderResult TypeResult StatusMallory Tyler MDLAB BLOOD ORDERABLESFinal ResultPerforming OrganizationAddressCity/State/ZIP CodePhone Number [facility] ([facility]) [address] [place] [address] * XR transfer of outside films (12/18/2024 [...] a result. Authorizing ProviderResult TypeResult StatusBenja Dowd [facility] CT PROCEDURESFinal ResultPerforming OrganizationAddressCity/State/ZIP CodePhone Number [facility] * CT transfer of outside films (12/18/2024 1:10 PM EST)Specimen (Source) Anatomical Location / LateralityCollection Method / VolumeCollection Time Received Time Narrative [facility] - 12/18/2024 1:10 PM EST This order has been auto-finalized and does not contain a result. Authorizing ProviderIsmaelult TypeResult Мария Dowd [facility] CT PROCEDURESFinal ResultPerforming OrganizationAddressCity/State/ZIP CodePhone Number [facility] * CT transfer of outside films (12/18/2024 1:10 PM EST)Specimen (Source) Anatomical Location / LateralityCollection Method / VolumeCollection Time Received Time Narrative [facility] - 12/18/2024 1:10 PM EST This order has been auto-finalized and does not contain a result. Authorizing ProviderResult TypeResult StatusBenja Dowd [facility] CT PROCEDURESFinal ResultPerforming OrganizationAddressty/State/ZIP CodePhone Number [facility] * CT transfer of outside films (12/18/2024 1:10 PM EST)Specimen (Source) Anatomical Location / LateralityCollection Method / VolumeCollection Time Received Time Narrative [facility] - 12/18/2024 1:10 PM EST This order has been auto-finalized and does not contain a result. Authorizing ProviderResult TypeResult StatusBenja Dowd [facility] CT PROCEDURESFinal ResultPerforming OrganizationAddressCity/State/ZIP CodePhone Number [facility] * CT transfer of outside films (12/18/2024 1:10 PM EST)Specimen (Source) Anatomical Location / LateralityCollection Method / VolumeCollection Time Received Time Narrative [facility] - 12/18/2024 1:10 PM EST This order has been auto-finalized and does not contain a result. Authorizing ProviderResult TypeResult StatusDalun Nile MDIMG CT PROCEDURESFinal ResultPerforming OrganizationAddressCity/State/ZIP CodePhone Number [facility] * (ABNORMAL) Comprehensive metabolic panel (12/17/2024 1:05 PM EST)Component ValueRef RangeTest MethodAnalysis TimePerformed AtPathologist SignatureSodium 103404 - 145 mmol/L102/17/2024 1:29 PM [facility] ([facility])Potassium 3.0(L)3.5 - 5.1 mmol/L102/17/2024 1:29 PM [facility] ([facility])Chloride 110(H)98 - 107 mmol/L102/17/2024 1:29 PM [facility] ([facility])AY71839 - 31 mmol/L102/17/2024 1:29 PM [facility] ([facility])Anion Gap97 - 20 mmol/L102/17/2024 1:29 PM [facility] ([facility])UVF170 - 25 mg/dL 12/17/2024 1:29 PM [facility] ([facility])Creatinine0.59(L)0.60 - 1.20 mg/dL12/17/2024 1:29 PM [facility] ([facility])BUN/Creatinine Ratio22.0 12/17/2024 1:29 PM [facility] ([facility])Yhtachd6655 - 100 mg/dL 12/17/2024 1:29 PM [facility] ([facility])Calcium7.8(L)8.6 - 10.3 mg/dL 12/17/2024 1:29 PM [facility] ([facility])TMC3135 - 39 U/L102/17/2024 1:29 PM [facility] ([facility])ALT (SGPT)157 - 52 U/L102/17/2024 1:29 PM [facility] ([facility])Alkaline Aeimfxkhxrq4996 - 104 U/L102/17/2024 1:29 PM [facility] ([facility])Total Protein5.4(L)6.0 - 8.3 g/dL12/17/2024 1:29 PM [facility] ([facility])Albumin3.4(L)3.5 - 5.7 g/dL12/17/2024 1:29 PM [facility] ([facility])Total Bilirubin0.40.3 - 1.0 mg/dL 12/17/2024 1:29 PM [facility] ([facility])rUZM492.5>60.0 mL/min/1.73m*2 12/17/2024 1:29 PM [facility] ([facility])Comment:[facility]???s estimated glomerular filtration rate (eGFR) will no [...] blood specimen / Unknown Existing Catheter / Fjjzprl0812/17/2024 1:05 PM EST12/17/2024 1:29 PM EST Narrative Authorizing ProviderResult TypeResult StatusMallory Tyler ROBLERO BLOOD ORDERABLESFinal ResultPerforming OrganizationAddressCity/State/ZIP CodePhone Number [facility] ([facility]) [address] [place] [address] * (ABNORMAL) CBC (12/17/2024 1:05 PM EST)ComponentValueRef RangeTest Method Analysis TimePerformed AtPathologist SignatureAuto WBC5.334.00 - 10.60 10*3/uL 12/17/2024 1:37 PM [facility] ([facility])RBC3.33(L)3.80 - 5.00 10*6/uL 12/17/2024 1:37 PM [facility] ([facility])Hemoglobin9.8(L)12.0 - 15.0 g/dL12/17/2024 1:37 PM [facility] ([facility])Bnhwyrnhiu21.5(L)36.0 - 45.0 %12/17/2024 1:37 PM [facility] ([facility])MCV88.682.0 - 98.0 fL 12/17/2024 1:37 PM [facility] ([facility])MCH29.427.0 - 33.0 pg 12/17/2024 1:37 PM [facility] ([facility])MCHC33.232.0 - 35.0 g/dL 12/17/2024 1:37 PM [facility] ([facility])RDW15.5(H)11.5 - 15.0 % 12/17/2024 1:37 PM [facility] ([facility])Onexfwvyh771310 - 400 10*3/uL 12/17/2024 1:37 PM [facility] ([facility])Specimen (Source)Anatomical Location / LateralityCollection Method / VolumeCollection TimeReceived Time BloodVenous blood specimen / UnknownExisting Catheter / Ztxumse3712/17/2024 1:05 PM EST12/17/2024 1:36 PM EST Narrative Authorizing ProviderResult TypeResult StatusMallory Tyler ROBLERO BLOOD ORDERABLESFinal ResultPerforming OrganizationAddressCity/State/ZIP CodePhone Number [facility] ([facility]) [address] [place] [address] * XR chest 1 view (12/17/2024 12:58 [...] signed: Rai Crespo. Authorizing ProviderResult TypeResult StatusMallorkatarina CALVILLO XR PROCEDURES Final Result documented in this encounter Visit Diagnoses Diagnosis Partial bowel obstruction (CMS/HCC)- Primary Partial bowel obstruction (CMS/HCC) Partial intestinal obstruction, unspecified cause (CMS/HCC) Obstructed internal hernia Anemia due to acute blood loss Acute posthemorrhagic anemia Obstructed internal hernia Obstructed internal hernia documented in this encounter Admitting Diagnoses Diagnosis Partial bowel obstruction (CMS/HCC) Obstructed internal hernia documented in this encounter Administered Medications Medication OrderMAR ActionAction DateDoseRateSite acetaminophen (Tylenol) tablet 650 mg 650 mg, oral, Every 6 hours scheduled, First dose on Wed12/19/24 at 1800, For 99 days Given12/19/2024 6:28 PM YSK575 mg Adult Cyclic 3-in-1 TPN 2,500 mL, [...] malabsorption from chronic condition or radiation Rate/Dose Voqxdi1812/21/2024 1:09 PM EST22.5 mL/hrRate/Dose Kqwoep0312/21/2024 12:09 PM EST45 mL/hrRate/Dose Mfyzaa7812/21/2024 11:09 AM EST90.1 mL/hr aprepitant (Emend) capsule 40 mg 40 mg, oral, Daily, First dose on Wed12/18/24 at 1845, For 99 days Given12/21/2024 7:44 AM EST40 xfEzpqx8612/20/2024 8:14 AM EST40 feGbfkw6812/18/2024 6:43 PM EST40 mg aspirin chewable tablet 81 mg 81 mg, oral, Daily with breakfast, First dose on Wed12/20/24 at 0800, For 99 days Given12/21/2024 7:44 AM EST81 wwDpbts0412/20/2024 8:14 AM EST81 mg BUPivacaine HCl (Marcaine) 0.25 % (2.5 mg/mL) injection As needed, Starting on Wed12/18/24 at 1945, Intraprocedure Given12/18/2024 7:45 PM EST11 mLAbdominal Tissue clopidogrel (Plavix) tablet 75 mg 75 mg, oral, Daily, First dose on Wed12/19/24 at 1800, For 99 days Given12/21/2024 7:44 AM EST75 inIsmup3612/20/2024 8:14 AM EST75 qsSsrmy4112/19/2024 6:27 PM EST75 mg colchicine split tablet [...] For 97 days Given12/21/2024 9:48 AM EST50 egLvzyc0912/21/2024 3:35 AM EST50 gjCpahp1412/20/2024 8:43 PM EST50 mg enoxaparin (Lovenox) syringe 40 mg 40 mg, subcutaneous, Daily, First dose on Wed12/19/24 at 1800, For 99 days Given12/20/2024 8:43 PM EST40 mgLeft Lower MhfhlsqQbtlc53/04/2025 6:25 PM EST40 mgLeft Lower Abdomen escitalopram (Lexapro) tablet 20 mg 20 mg, oral, Daily, First dose on Wed12/19/24 at 1215, For 99 days Given12/21/2024 7:44 AM EST20 ekPquoc6812/20/2024 8:14 AM EST20 hzVtscs2712/19/2024 12:40 PM EST20 mg fentaNYL (Duragesic) 12 [...] policy. Wash hands immediately after handling patch. glucose chewable tablet 24 g 24 g, [...] IV fluids or tube feeding bolus) HYDROcodone-acetaminophen (Marion) 5-325 mg per tablet 2 tablet 2 tablet, oral, Every 4 hours PRN, severe pain (8-10 pain score), Starting on Wed12/19/24 at 1755, For 99 days Given12/21/2024 12:26 PM EST2 lutsfsxExjfy77/06/2025 7:47 AM EST2 tabletsGiven 12/21/2024 3:36 AM EST2 tablets hydrocortisone (Cortef) tablet 10 mg 10 mg, oral, Daily, First dose on Wed12/19/24 at 1800, For 99 days Given12/21/2024 7:44 AM EST10 bnHgflh5112/20/2024 8:14 AM EST10 nuUsaio4912/19/2024 6:27 PM EST10 mg HYDROmorphone (Dilaudid) injection 0.3 mg 0.3 mg, intravenous, Every 3 hours PRN, severe pain (8-10 pain score), breakthrough, Starting on Wed12/20/24 at 1141, For 99 days Given12/21/2024 9:47 AM EST0.3 knHnbly9512/21/2024 6:09 AM EST0.3 mgGiven 12/20/2024 11:24 PM EST0.3 mg insulin lispro (HumaLOG) injection 0-10 Units 0-10 [...] Physician Given12/20/2024 11:45 PM EST4 UnitsLeft Lower IbufbchRpflz62/05/2025 5:56 PM EST 2 UnitsLeft Lower AjcxtkeMpplk79/04/2025 6:26 PM EST2 UnitsRight Lower Abdomen levothyroxine (Synthroid, Levoxyl) tablet 75 mcg 75 mcg, oral, Daily before breakfast, First dose on Wed12/20/24 at 0730, For 99 days Given12/21/2024 6:09 AM EST75 jmbNjvcr30/05/2025 6:18 AM EST75 mcg lidocaine-EPINEPHrine (Xylocaine W/EPI) 1 %-1:100,000 injection As needed, Starting on Wed12/18/24 at 1946, Intraprocedure Given12/18/2024 7:46 PM EST11 mLAbdominal Tissue liothyronine (Cytomel) tablet 5 mcg 5 mcg, oral, Daily, First dose on Wed12/19/24 at 1800, For 99 days Given12/21/2024 7:44 AM EST5 mgfKigjj12/05/2025 8:14 AM EST5 zphKqvqc24/04/2025 6:27 PM EST5 mcg methocarbamol (Robaxin) tablet 750 mg 750 mg, oral, 3 times daily, First dose on Wed12/19/24 at 1215, For 99 days Given12/21/2024 7:44 AM OAX073 itWcxwv8712/20/2024 10:08 PM SKD474 mgGiven 12/20/2024 4:11 PM HYL517 mg metoprolol succinate XL (Toprol-XL) 24 hr tablet 25 mg 25 mg, oral, Daily, First dose on Wed12/20/24 at 1000, For 99 days, Do not crush or chew. Given12/21/2024 7:44 AM EST25 mg mirtazapine (Remeron) tablet 45 mg 45 mg, oral, Nightly, First dose on Wed12/19/24 at 2200, For 99 days Given12/20/2024 10:08 PM EST45 waRzvfn0412/19/2024 8:10 PM EST45 mg ondansetron HCl (PF) (Zofran) injection 4 mg 4 mg, intravenous, Every 6 hours PRN, nausea, vomiting, Starting on Wed12/17/24 at 1221, For 99 days, Give IV if patient is unable to take orally. Administer as an IV push over 2 to 5 minutes. Given12/20/2024 2:41 PM EST4 qdZmcbf9912/20/2024 9:36 AM EST4 kjJosqf8212/19/2024 9:36 AM EST4 mg ondansetron HCl (PF) [...] split., Indication: GERD Given12/21/2024 6:09 AM EST40 miIyhmi9212/20/2024 6:18 AM EST40 mg ranolazine (Ranexa) 12 hr tablet 500 mg 500 mg, oral, 2 times daily, First dose on Wed12/19/24 at 2200, For 99 days, Do not crush, chew, orsplit. Given12/21/2024 7:44 AM QMI552 ofGqtwu8412/20/2024 10:07 PM SCE856 mgGiven 12/20/2024 8:14 AM HVP217 mg rosuvastatin (Crestor) tablet 40 mg 40 mg, oral, Nightly, First dose on Wed12/19/24 at 2200, For 99 days Given12/20/2024 10:08 PM EST40 qzFjzjz6712/19/2024 8:10 PM EST40 mg scopolamine (Transderm-Scop) patch 1 patch 1 patch, transdermal, Administer over 72 Hours, Every 72 hours, First dose on Wed12/18/24 at 1845, For 99 days, Apply to hairless area of skin behind the ear. Medication Syhopur7412/18/2024 6:43 PM EST1 patchBehind Left Ear sodium chloride flush 10 mL 10 mL, intravenous, Every 8 hours PRN, line care, Starting on Wed12/17/24 at 1217, For 99 days traZODone (Desyrel) tablet 100 mg 100 mg, oral, Nightly, First dose on Wed12/19/24 at 2200, For 99 days Given12/20/2024 10:08 PM TFC763 fxCrlmd6012/19/2024 8:11 PM JRG809 mgdocumented in this encounter Active and Recently Administered Medications Times are shown in EST.Medication Order acetaminophen (Tylenol) tablet 650 mg 650 mg, [...] 0744 (Given - Provider: Tiffani Avitia, DEE) aspirin chewable tablet 81 mg 81 mg, oral, Daily with breakfast, First dose on Wed12/20/24 at 0800, For 99 days * 0814 (Given - Provider: Tiffani Avitia RN) * 0744 (Given - Provider: Tiffani Avitia, DEE) clopidogrel (Plavix) tablet 75 mg 75 [...] days * 1825 (Given - Provider: Angelica Casillas RN) * 204 (Given - Provider: Vani Koehler RN) escitalopram [...] 0744 (Given - Provider: Tiffani Avitia RN) HYDROmorphone (Dilaudid) injection 0.4 mg (COMPLETED) 0.4 mg, intravenous, Once, On Wed12/20/24 at 0945, For 1 dose * 0955 (Given - Provider: Tiffani Avitia RN) insulin lispro (HumaLOG) injection 0-10 Units 0-10 [...] RN) * 2345 (Given - Provider: Vani Koehler RN) * 0600 (Not Given - Provider: Vani [...] Give each cup [address] [phone] when starting first cup * 1151 (Given - Provider: Tiffani Avitia, DEE) iohexol (OMNIPaque) 350 mg iodine/mL injection 100 mL (COMPLETED) 100 mL, intravenous, Once in imaging, Starting on Wed12/20/24 at 1404, For 1 dose * 1405 (Given - Provider: NATHAN StevensT) iohexol (OMNIPaque) 350 mg iodine/mL injection 200 mL () 200 mL, nasogastric tube, Once in imaging, Starting on Wed12/19/24 at 0901, For 1 day * 0903 (Given - Provider: NATHAN MadsenT - Comment: Exp 20 AUG 2027Lot [id number]) levothyroxine (Synthroid, Levoxyl) tablet 75 mcg 75 mcg, oral, Daily before breakfast, First dose on Wed12/20/24 at 0730, For 99 days * 0618 (Given - Provider: Amos Crabtree RN) * 0609 (Given - Provider: Vani Koehler RN) liothyronine (Cytomel) tablet 5 mcg 5 mcg, oral, Daily, First dose on Wed12/19/24 at 1800, For 99 days * 1827 (Given - Provider: Angelica Casillas RN) * 0814 (Given - Provider: Tiffani Avitia RN) * 0744 (Given - Provider: Tiffani Avitia RN) methocarbamol (Robaxin) tablet 750 mg 750 mg, oral, 3 times daily, First dose on Wed12/19/24 at 1215, For 99 days * 1240 (Given - Provider: Angelica Casillas RN) * 1659 (Given - Provider: Angelica Casillas RN) * 2010 (Given - Provider: Amos Crabtree [...] (Given - Provider: Tiffani Avitia RN) * 2206 (Given - Provider: Vani Koehler, DEE) * 0744 (Given - Provider: Tiffani Avitia, DEE) rosuvastatin (Crestor) tablet 40 mg 40 mg, oral, Nightly, First dose on Wed12/19/24 at 2200, For 99 days * 2009 (Given - Provider: Amos Crabtree RN) * 2207 (Given - Provider: Vani Koehler, DEE) scopolamine (Transderm-Scop) patch 1 patch 1 patch, [...] (Given - Provider: Vani Koehler RN) Medication Order//07/2024 Adult Cyclic 3-in-1 TPN () 2,500 mL, [...] * 1306 (Rate/Dose Change - Provider: Angelica Casillas RN) * 1406 (Stopped - Provider: Tiffani [...] malabsorption from chronic condition or radiation * 220 (New Bag - Provider: Vani Koehler, DEE) * 1109 (Rate/Dose Change - Provider: Tiffani Avitia, RN) * 1209 (Rate/Dose Change - Provider: Tiffani Avitia, RN) * 1309 (Rate/Dose Change - Provider: Tiffani Avitia, RN) * 1353 (Stopped - Provider: Giovanni Avitia RN) * 1409 (Due: Stopped - Provider: Vani Koehler RN) Medication Order11/04/ dextrose 50 % in water (D50W) syringe [...] * 1441 (Given - Provider: Tiffani Avitia, RN) * 2043 (Given - Provider: Vani Koehler, [...] IV fluids or tube feeding bolus) HYDROcodone-acetaminophen (Marion) 5-325 mg per tablet 2 tablet (CANCELED) 2 tablet, oral, Every 4 hours PRN, moderate pain (4-7 pain score), Starting on Wed12/19/24 at 1206,For 99 days * 1411 (Given - Provider: Tiffani Avitia RN) HYDROcodone-acetaminophen (Marion) 5-325 mg per tablet 2 tablet 2 tablet, oral, Every 4 hours PRN, severe pain (8-10 pain score), Starting on Wed12/19/24 at 1755, For 99 days * 1848 (Given - Provider: Angelica Casillas RN) * 0153 (Given - Provider: Sara Jade RN) * 0617 (Given - Provider: Amos Crabtree RN) * 1151 (Given - Provider: Tiffani Avitia RN) * 1801 (Given - Provider: Giovanni Avitia RN) * 2216 (Given - Provider: Vani Koehler RN) * 0336 (Given - Provider: Vani Koehler, [...] RN) * 1611 (Given - Provider: Tiffani Aviita, DEE) * 2011 (Given - Provider: Vani Koehler, DEE) * 2324 (Given - Provider: Vani Koehler, RN) * 0609 (Given - Provider: Vani Koehler, DEE) * 0947 (Given - Provider: Tiffani Avitia, DEE) HYDROmorphone (Dilaudid) injection 0.4 mg (CANCELED)(Linked Group [...] (Given - Provider: Tiffani Avitia RN) * 1441 (Given - Provider: Tiffani Avitia [...] * 0936 (See Alternative - Provider: Tiffani vAitia RN) * 1441 (See Alternative - Provider: [...] on Wed12/17/24 at 1229, For 99 days Group 4: ondansetron ODT (Zofran-ODT) disintegrating tablet 4 mgJump to med 4 mg, oral, Every 8 hours PRN, nausea, vomiting, Starting on Wed12/17/24 at 1221, For 99 days Or ondansetron HCl (PF) (Zofran) injection 4 mgJump to med 4 mg, intravenous, Every 6 hours PRN, nausea, vomiting, Starting on Wed12/17/24 at 1221, For 99 days, Give IV if patient is unable to take orally. Administer as an IV push over 2 to 5 minutes. Group 5: Insert peripheral IV (CANCELED) Once, On Wed12/17/24 at 1218, For 1 occurrence And Saline lock IV (CANCELED) Once, On Wed12/17/24 at 1218, For 1 occurrence And sodium chloride flush 10 mLJump to med 10 mL, intravenous, Every 8 hours PRN, line care, Starting on 12/17/24 at 1217, For 99 days documented in this encounter Care Teams Team MemberRelationshipSpecialtyStart DateEnd Date Thomas Alas MD [address] [facility] [place] [id number] PCP - GeneralFamily Medicine08/17/24documented as of this encounter
[2024-12-27 10:43] VITALS: BP 118/74; PULSE 90; TEMP 36.6; O2SAT 100; BMI 28.6
--- NOTE | 2024-12-27 10:57 | CT_ITS ---
The [address] [address] Patient Name: JUAN KONG MRN: [id number] date: 1990 Sex: F Assigned Patient Location: ER Current Patient Location: ER Accession/Order Number: [id number] Exam Date: 12/27/2024 11:50 Report Date: 12/27/2024 12:39 At the request of: OTILIO KLEIN DO Procedure: CT abdomen pelvis wo con CT ABDOMEN AND PELVIS WITHOUT CONTRAST COMPARISON: 12/17/2024 CLINICAL DATA: Abdominal pain, nausea and constipation. Recent small bowel obstruction with reported surgery. Spiral images were obtained through the abdomen and pelvis without contrast. This CT exam was performed using one or more following dose reduction techniques: Automated exposure control, adjustment of the mA and/or kV according to patient size, or use of iterative reconstruction technique. Limited cuts through the lung bases show no contributory findings. Assessment of the abdominal organs is slightly limited by the absence of contrast. There are multiple scattered hypodensities within the liver that were also seen previously and may be cysts. The gallbladder is surgically absent. No common duct stones are noted. The spleen, pancreas and adrenal glands show no acute findings. There is a punctate stone at the inferior pole of the right kidney. No hydronephrosis is seen. The abdominal aorta is normal caliber. A few small lymph nodes are visualized. No ascites is seen. There are postoperative changes of bariatric surgery. There are borderline caliber small bowel loops that contain air and/or fluid. No wall thickening is seen. There is air and fluid at the ascending colon. There is a mild air and stool at the transverse and descending colon. The bony structures are intact. Images through the pelvis show more normal caliber small bowel loops containing fluid. There is prior appendectomy. Mild rectosigmoid stool is visualized. No diverticular disease is noted. The uterus appears to be surgically absent. There are no urinary bladder abnormalities for the degree of distention. No ascites is identified. CT/CT abdomen pelvis wo con IMPRESSION: CONTINUED SUSPECTED HEPATIC CYSTS. RIGHT NEPHROLITHIASIS, WITHOUT OBSTRUCTION. BORDERLINE DISTENDED SMALL BOWEL LOOPS. GIVEN THE HISTORY OF INTERVAL SURGERY, THIS MIGHT BE ILEUS HOWEVER EARLY OR PARTIAL SMALL BOWEL OBSTRUCTION IS NOT COMPLETELY EXCLUDED. FOLLOW-UP IS THEREFORE SUGGESTED. Impression dictated by: Maricruz Hutchinson M.D. 12/27/2024 12:39 PM Dictation Location: [place] [address] Electronically authenticated by: [id number] Y Date: 12/27/2024 12:39
[2024-12-27 11:16] LABS: Hematocrit 32.5 % (36.0-48.0); Hemoglobin 10.7 g/dL (12.0-16.0); Immature Granulocytes Abs Auto 0.01 10^3/uL (0.00-0.03); Immature Granulocytes Pct Auto 0.2 % (0.0-0.5); Lymphocytes Absolute Auto 1.2 10^3/uL (1.2-3.8); Mean Corpuscular HGB Conc 32.9 g/dL (29.9-35.2); Mean Corpuscular Hemoglobin 30.7 pg (26.7-34.0); Mean Corpuscular Volume 93.1 fL (81.0-99.0); Platelet Count 213 10^3/uL (150-450); Red Blood Count 3.49 10^6/uL (4.20-5.40); White Blood Count 5.4 10^3/uL (4.0-11.0)
[2024-12-27] MEDS: LIDOCAINE HCL 1%-EPINEPHRINE 1:100,000 20 ML MDV 10 ML INJ (11:22)
[2024-12-27] MEDS: OXYMETAZOLINE HCL 0.05% NASAL SPRAY 2 SPRAY NS (11:22)
[2024-12-27] MEDS: MORPHINE SULFATE 2 MG/ML SYRINGE IV ×2 (11:23→13:42)
--- OUTSIDE RECORDS SUMMARY | 2024-12-27 11:37 | XMS_ITS | Clinical Summary ---
Author Organization [facility] Address [address] [place] [id number] Care Team Providers Care Statistician Theoretical Name Role Phone Mateusz Rosales MD Unavailable [phone] Source Comments The following information is NOT included in Care Everywhere downloads:Psychiatric notes, ECG results, Cardiac Rehab notes, Pulmonary Function notes, data from SmartForms (includes but not limited toPregnancy data,audiograms, eye exams, pre-surgical evaluation notes, well-child exam data).[facility] Medications No known medications Active Problems ProblemNoted DateDiagnosed DateMedian arcuate ligament lmlusxde24/02/2025 Assessment & Plan (10/09/2024 2:29 PM EDT): [...] prior laparotomy and open repair Encounters DateTypeDepartmentCare HaawWodjolmsvqw63/25/2025 1:45 PM EDTTelemedicine [facility] Oncology Surgical [address] [place] [phone] Mateusz Rosales MD Median arcuate ligament syndrome (HCC) (Primary Dx)10/09/20240283Rtdexi88/21/2025 Telephone [facility] Surgery General [address] [place], [place] [phone] Mateusz Rosales MD from Last 3 Months Immunizations ImmunizationAdministration DatesNext DueInfluenza, injectable, quadrivalent, preservative free (OJL=059)11/12/2022,11/16/2021,12/25/2020Influenza, unspecified formulation (CVX=88)01/01/2021,11/28/2018 Social History Tobacco UseTypesPacks/DayYears UsedDateSmoking Tobacco: NeverSmokeless Tobacco: Never Tobacco Cessation:Counseling Given: Not Answered CommentsUnknownSex and Gender InformationValueDate RecordedSex Assigned at BirthNot on fileLegal JdlQxkeoo55/23/2024 2:52 PM ESTGender IdentityNot on fileSexual OrientationNot on file Last Filed Vital Signs Vital SignReadingTime TakenCommentsBlood Ccfwyyca768/7306 2:27 PM EDT Tkquy1943 2:27 PM LLGKnafvdthqlr59.4 ??C (97.5 ??F)07/17/2024 2:27 PM EDTRespiratory Nhar905907/17/2024 2:27 PM EDTOxygen Hadffuopjb94%07/17/2024 2:27 PM EDTInhaled Oxygen Concentration--Biuufm04.5 kg (192 lb 12.8 oz)07/17/2024 2:27 PM EDTHeight--Body Mass Index-- Plan of Treatment Health MaintenanceDue DateLast DoneCommentsMammography (shared decision-making, age 35-39)1989HIV Test2004Hepatitis C Atdvfhod66/17/2008Tdap Booster 2007Hepatitis A (HAV) Vaccine (optional start [...] Corby Garcia TypeRelation to PatientDate of BirthPhoneBilling AddressPersonal/RkzijcCwox19/17/[id number] [place] [phone] Care Teams Team MemberRelationshipSpecialtyStart DateEnd Date Mtaeusz Rosales MD [address] [place] [address] PhysicianGeneral Surgery05/20/24
--- OUTSIDE RECORDS SUMMARY | 2024-12-27 11:38 | XMS_ITS | Clinical Summary ---
Author Organization [employer] [facility] Address [id number] [address] [place] [address] Care Team Providers Care Tomography Technologist Name Role Phone No Pcp, No Pcp Primary Care Provider Unavailabl e Allergies Active AllergyReactionsCriticalityNoted GudiPrrqajkrZvoronc53/18/2018 Medications MedicationSigDispense QuantityRefillsLast FilledStart DateEnd DateStatus levothyroxine [...] breakfast.Active lancets (ONETOUCH DELICA LANCETS) 33 gauge [facility] Indications:Abnormal glucose tolerance affecting , antepartumOne touch [...] Problems ProblemNoted DateDiagnosed DateHypothyroidism affecting in second noegurhay09/08/2018 Family History Medical HistoryRelationNameCommentsThyroid diseaseFatherDiabetesMaternal GrandfatherHypertensionMaternal GrandfatherThyroid diseaseMaternal Grandfather HypertensionMaternal GrandmotherDiabetesMotherHypertensionMotherHypertension Paternal GrandfatherDiabetesPaternal GrandmotherHypertensionPaternal Grandmother Thyroid diseasePaternal GrandmotherRelationNameStatusCommentsFatherMaternal GrandfatherMaternal GrandmotherDeceasedMotherPaternal GrandfatherPaternal GrandmotherDeceased Social History Tobacco UseTypesPacks/DayYears UsedDateSmoking Tobacco: NeverSmokeless Tobacco: NeverAlcohol UseStandard Drinks/WeekCommentsNo0 (1 standard drink = 0.6 oz pure alcohol)ChildcareAnswerDate GjkpcjqdGotoxktsbGmobdbh08/09/2019EmploymentAnswer Date YjkfkklkPbcakukishTxgovxr24/09/2019Purpose - LifeAnswerDate RecordedPurpose and direction in nzmrJpgefbk03/11/2021CommentsNoSex and Gender InformationValueDate RecordedSex Assigned at BirthNot on fileLegal SexFemale 09/20/2014 11:41 AM EDTGender IdentityNot on fileSexual OrientationNot on file Last Filed Vital Signs Vital SignReadingTime TakenCommentsBlood Svlpgweh886/71003/15/2019 9:28 AM EST Qahvm170703/15/2019 9:28 AM ESTTemperature--Respiratory Rate--Oxygen Saturation-- Inhaled Oxygen Concentration--Zwxcfv453 kg (262 lb 5.6 oz)03/15/2019 9:28 AM EST Iqmlib986.2 cm (5' 7 )01/16/2019 8:31 AM ESTBody Mass Index41.0901/16/2019 8:31 AM EST Plan of Treatment Health MaintenanceDue DateLast DoneCommentsDepression Xhsjdtsor52/17/2002Tobacco Qjxvmqjcr75/17/2002Adult BMI Bpgxhnivt94/17/2008DTaP,Tdap and Td Vaccines (1 - Tdap)2008Pap Smear2010Influenza Rllixvi2110/16/2024 Medical Devices Not on file Insurance Care Teams Team MemberRelationshipSpecialtyStart DateEnd Date No Pcp, No Pcp [place] [place] [id number] [facility]
--- OUTSIDE RECORDS SUMMARY | 2024-12-27 11:38 | XMS_ITS | Encounter Summary ---
Author Organization [facility] Address [address] [place] [address] Care Team Providers Care Patient Registration Rep Name Role Phone Thomas Alas MD Primary Care Provider [phone] Encounter Details DateTypeDepartmentCare Team (Latest Contact Info)Gbngolfutkj13/30/2025Travel Social History Tobacco UseTypesPacks/DayYears UsedDateSmoking Tobacco: NeverSmokeless Tobacco: NeverAlcohol UseStandard Drinks/WeekCommentsNot Currently0 (1 standard drink = 0.6 oz pure alcohol)[facility] UtilitiesAnswerDate RecordedIn the past 12 months [...] 11/15/2024CommentsNoSex and Gender InformationValueDate RecordedSex Assigned at SdydnAhxcub38/03/2025 3:45 PM EDTLegal EjnLdvexc83/30/2022 12:07 AM EDTGender XqxnqicvAeeiqj77/03/2025 3:45 PM EDTSexual OrientationHeterosexual or Vppvbxfu91/03/2025 3:45 PM EDTdocumented as of this encounter Functional Status * QuestionAnswerDate of EmvahnixsvKdcntnXB594/7012/14/2024 10:30 AM Aisha Hernandez RNPulse7312/14/2024 10:30 AM Aisha Hebert RNHeart Rate ZsdokhIxveomj81/30/2025 10:30 AM Aisha Hebert RNPatient Position Lying12/14/2024 10:30 AM Aisha Hebert RN * Pain Assessment TimerQuestionAnswerDate of AssessmentAuthorRestart Pain Assessment CmpjzHgm05/30/2025 10:30 AM Aisha Hebert RN * Pain AssessmentQuestionAnswerDate of AssessmentAuthorPain LocationAbdomen 12/14/2024 7:50 AM Mayda Ortiz RNPain EsqogsnbvouHes66/30/2025 7:50 AM Mayda Ortiz RNWong-Walsh FACES Pain Wvgpip378/30/2025 10:01 AM Aisha Hebert RNRamsay Scale (RS): Bvggm391 10:30 AM Aisha Hebert RNPain TypeAcute pain;Chronic pain12/14/2024 7:50 AM EDT Mayda Gray RNPain Hufew496 7:50 AM EDTPMayda wharton RNPain AssessmentNo/denies pain12/14/2024 10:30 AM Aisha Hebert, RN * Head, Ears, Eyes, Nose, and Throat (HEENT)QuestionAnswerDate of Assessment AuthorHead, Ears, Eyes, Nose, and Throat (WDL)WDL1 10:30 AM Aisha Hernandez, RN * QuestionAnswerDate of AssessmentAuthorHead of Bed ElevatedHOB 301 10:30 AM Aisha Hebert RN * Vital SignsQuestionAnswerDate of UdhleuesbaJxrqpkUH046/7012/14/2024 10:30 AM Aisha Hebert, YAEflj39.310 10:30 AM Aisha Hebert RN Temp nrvOoeoxiok59/30/2025 10:30 AM Aisha Hebert, PJNpeqo6882/30/2025 10:30 AM Aisha Hebert PHGlih1561/30/2025 10:30 AM Aisha Hebert, VVGuD135501/30/2025 10:30 AM Aisha Hebert RNHeart Rate Source Rykxetl5612/14/2024 10:30 AM Aisha Hebert, RNBP LocationLeft arm 12/14/2024 10:30 AM Aisha Hebert, RNBP ZqrbwlDhtyaledh72/30/2025 10:30 AM Aisha Hebert RNPatient LmqreygzBdgui04/30/2025 10:30 AM Aisha Hernandez, RN * QuestionAnswerDate of AssessmentAuthorLevel of JwjymkfbfysdaOmwhu19/30/2025 10:01 AM Aisha Hebert RNOrientation LevelOriented X41 10:01 AM Aisha Hebert RN * QuestionAnswerDate of AssessmentAuthorCardiac KelzxqUTA19/30/2025 10:30 AM EDT Aisha Louise RNCardiac QaysjhwesuIljmkds65/30/2025 10:01 AM EDT Aisha Louise RNCardiac YwxvbdqmRpap13/30/2025 10:30 AM Aisha Hebert RNHeart SoundsS1, S212/14/2024 10:01 AM Aisha Hebert RN * GastrointestinalQuestionAnswerDate of AssessmentAuthorPassing FlatusNo 12/14/2024 10:01 AM Aisha Hebert, RNAbdominal TendernessSoft;Nontender 12/14/2024 10:01 AM Aisha Hebert RNBowel Sounds (All Quadrants) Bcciopv3012/14/2024 10:01 AM Aisha Hebert RNGastrointestinal (WDL)WDL 12/14/2024 10:30 AM Aisha Hebert, RNAbdomen InspectionSoft;Rounded 12/14/2024 10:01 AM Aisha Hebert RNGastrointestinal SymptomsNone 12/14/2024 10:30 AM Aisha Hebert RNBowel SoundsAll quadrants 12/14/2024 10:01 AM Aisha Hebert RN * Peripheral VascularQuestionAnswerDate of AssessmentAuthorPeripheral Vascular [...] Hebert RN * NeurologicalQuestionAnswerDate of AssessmentAuthorCognitionAppropriate judgement;Follows jyjeyxgh24/30/2025 7:50 AM Mayda Ortiz, RNSpeech Clear12/14/2024 7:50 AM Mayda Ortiz RNNeuro (WDL)X1 7:50 AM Mayda Ortiz RNR Hand XpkovXumnus87/30/2025 7:50 AM NINA PawMayda gonzalez, RNL Hand VxdbeQeejkh44/30/2025 7:50 AM Mayda Ortiz RNR Foot GzkftccvhljvReleti61/30/2025 7:50 AM Mayda Ortiz, RNL Foot HrbpzqpltalsTxthtf51/30/2025 7:50 AM Mayda Ortiz RNNeuro PoqtgvqxHpmb06/30/2025 7:50 AM Mayda Ortiz RN Hand Grasp/Motor Function/Sensation AssessmentGrasp;Byhtboenayka86/30/2025 7:50 AM Mayda Ortiz RNFacial WsvaaihcKyiaqrxbfkr20/30/2025 7:50 AM Mayda Ortiz RN * QuestionAnswerDate of UwdufeupwvNdhnrjPYIG9703/30/2025 10:00 AM Alvina, Device In * Pain AssessmentQuestionAnswerDate of AssessmentAuthorPain LocationAbdomen 12/14/2024 7:50 AM Mayda Ortiz RNPain HzmtlgqdfytCwn52/30/2025 7:50 AM Mayda Ortiz RNWong-Walsh FACES Pain Cmhmwu066/30/2025 10:01 AM Aisha Hebert RNRamsay Scale (RS): Vzsnt270 10:30 AM Aisha Hebert RNPain TypeAcute pain;Chronic pain12/14/2024 7:50 AM Mayda Dawson RNPain Wyvig009 7:50 AM Mayda Ortiz RNPain AssessmentNo/denies pain12/14/2024 10:30 AM Aisha Hebert RN * IntegumentaryQuestionAnswerDate of AssessmentAuthorIntegumentary (WDL)WDL 12/14/2024 7:50 AM Mayda Ortiz RN * Kiefer Suicide Severity Rating ScaleQuestionAnswerDate of AssessmentAuthor1. Have [...] Mayda Dawson RN * Modified AldreteQuestionAnswerDate of JxutekpdrsQhvqqbAopbwszk249/30/2025 10:30 AM Aisha Hebert RNRespiration21 10:30 AM Aisha Hernandez RNCirculation21 10:30 AM EDAisha Moreno RN Ordmrhmxqkdqu317/30/2025 10:30 AM EDTAisha Louise, RNOxygen Saturation2 12/14/2024 10:30 AM EDAisha Moreno RNModified Jesi Lzloj7983/30/2025 10:30 AM Aisha Hebert RN documented as of this encounter Mental Status * Modified AldreteQuestionAnswerEntry TksiGfivqtJrafnvsw192/30/2025 10:30 AM EDT Aisha Louise, SLGktuijbowfl180/30/2025 10:30 AM EDAisha Moreno, RN Bamxblxfpnc963/30/2025 10:30 AM EDTAisha Louise RNConsciousness2 12/14/2024 10:30 AM EDAisha Moreno RNOxygen Sjykbvksbo921/30/2025 10:30 AM EDAisha Moreno RNModified Jesi Vhkxl4540/30/2025 10:30 AM EDT Aisha Louise RN documented in this encounter Plan of Treatment DateTypeDepartmentCare Team (Latest Contact Info)Boycxyxtpst20/13/2025 3:00 PM ESTOffice Visit [facility] [address] [place] [phone] Donnie Cesar MD [address] [place] [address] 01/31/2025 11:00 AM ESTOffice Visit [facility] [address] [place] [address] Wali Collins MD [address] [place] [phone] documented as of this encounter Visit Diagnoses Not on filedocumented in this encounter Care Teams Team MemberRelationshipSpecialtyStart DateEnd Date Thomas Alas MD [address] [facility] [address] [address] PCP - GeneralFamily Medicine08/17/24documented as of this encounter
--- OUTSIDE RECORDS SUMMARY | 2024-12-27 11:39 | XMS_ITS | Encounter Summary ---
Author Organization [facility] Address [address] [place] [address] Care Team Providers Care Interpersonal Communications Professor Name Role Phone Thomas Alas MD Primary Care Provider [phone] Encounter Details DateTypeDepartmentCare Team (Latest Contact Info)Rdyeaqixjvc96/02/2025Travel Social History Tobacco UseTypesPacks/DayYears UsedDateSmoking Tobacco: NeverSmokeless Tobacco: NeverAlcohol UseStandard Drinks/WeekCommentsNot Currently0 (1 standard drink = 0.6 oz pure alcohol)[facility] UtilitiesAnswerDate RecordedIn the past 12 months [...] 12/17/2024CommentsNoSex and Gender InformationValueDate RecordedSex Assigned at CfayaSpfyob34/03/2025 3:45 PM EDTLegal CveFbjuko18/30/2022 12:07 AM EDTGender MoxqtgtrDwbvdw56/03/2025 3:45 PM EDTSexual OrientationHeterosexual or Pjkmsxxg17/03/2025 3:45 PM EDTdocumented as of this encounter Functional Status * BPAnswerDate of JpbcxiwlmrBcwraq334/6412/17/2024 7:16 PM Maryuri Byers, PCT * PulseAnswerDate of MhfntvlwxmQfzktc2118/02/2025 7:16 PM Maryuri Byers, PCT * Qureshi Fall RiskQuestionAnswerDate of AssessmentAuthorHistory of Falling, Immediate or Within 3 Aqposl840 8:00 PM Tanner Orozco, BRITNEYecondary Igbqlczcj8337/02/2025 8:00 PM Tanner Orozco, RNAmbulatory Umf312 8:00 PM Tanner Orozco, DEEIntravenous Therapy/Heparin Emzu7849 8:00 PM Tanner Orozco, DEEGait/Wawvyopzanka431/02/2025 8:00 PM Tanner Orozco RNMental Uprpqu282 8:00 PM Tanner Orozco RNMorse Fall Risk Score35 12/17/2024 8:00 PM Tanner Orozco RN * Cyrus ScaleQuestionAnswerDate of AssessmentAuthorBraden No Risk Interventions Continue to assess patient according to level of care12/17/2024 8:00 PM Tanner Manzo, RNSensory Hgsvmzqipme799/02/2025 8:00 PM Tanner Orozco, RN Feuwbzvr032/02/2025 8:00 PM Tanner Orozco, FFSevcusjt449/02/2025 8:00 PM Tanner Orozco FSLbctqcxs888/02/2025 8:00 PM Tanner Orozco RNNutrition2 12/17/2024 8:00 PM Tanner Orozco, RNFriction and Msxqu70502/17/2024 8:00 PM Tanner Orozco RNBraden Scale Zxblm401112/17/2024 8:00 PM Tanner Orozco, RN * Heart Rate SourceAnswerDate of FeyxnicuyxHbymshKwrkcau75/02/2025 7:16 PM Maryuri Amaral PCT * [place] Fall Risk InterventionsQuestionAnswerDate of AssessmentAuthor [place] Fall Risk SxjmomikdlytpAmgubles86/02/2025 8:00 PM Tanner rOozco RN * Pain Assessment TimerQuestionAnswerDate of AssessmentAuthorRestart Pain Assessment SjjafNod90/02/2025 8:00 PM Tanner Orozco, DEE * Sepsis Model ScoresQuestionAnswerDate of AssessmentAuthorEarly Detection of Sepsis Score1.2511 11:45 PM DARNELLChronicles, BatchqEarly Detection of Sepsis Score0.311 11:46 PM ESTChronicles, Batchq * Pain AssessmentQuestionAnswerDate of AssessmentAuthorPain LocationAbdomen 12/17/2024 10:30 AM Adriano Klein RNPain FicznmgzjjwhpAjyq00/02/2025 8:00 PM Tanner Orozco RNPain GseqlXpozuet18/02/2025 10:30 AM Adriano Klein RNPatient's Stated Pain GoalNo pain12/17/2024 8:00 PM Tanner Orozco, DEE Response to Interventionspt qdrqswjy27/02/2025 6:28 PM Adriano Klein RN Pain TypeChronic pain12/17/2024 10:30 AM Adriano Klein RNClinical ProgressionNot yvepvss7912/17/2024 8:00 PM Tanner Orozco RNPain Score6 12/17/2024 8:00 PM Tanner Orozco RNPain Assessment0-10102/17/2024 8:00 PM Tanner Orozco RN * Audit Alcohol ScreeningQuestionAnswerDate of AssessmentAuthorTo your knowledge, has alcohol ever caused significant problems for the patient? (e.g., significantdistress to patient or those close to patient or impairment in social, occupational, or other important areas of functioning)No12/17/2024 10:13 AM Arline Lovelace RNBrief counselling was offered to the patientNo 12/17/2024 10:13 AM Arline Lovelace RNReferral for addictions treatment was iogkdcsUc72/02/2025 10:13 AM Arline Lovelace RNHow often do you have a drink containing alcohol? 10:13 AM Arline Lovelace RNHow many standard drinks containing alcohol do you have on a typical day?No12/17/2024 10:13 AM Arline Lovelace RNHow often do you have six or more drinks on one occasion?0 12/17/2024 10:13 AM Arline Lovelace RNAudit-C Bszxy15402/17/2024 10:13 AM Arline Paredes RN * MEWS SCOREQuestionAnswerDate of AssessmentAuthorMEWS YJUPV91102/17/2024 11:01 PM DARNELLChronicles, Batchq * Deterioration Index ScoreQuestionAnswerDate of AssessmentAuthorDeterioration Index Score17.44102/17/2024 11:46 PM Jessiicles Batchq * Patient PositionAnswerDate of YhyvjlvffwNatganWbfmx78/02/2025 7:16 PM Maryuri Amaral PCT * BPAnswerDate of YegseifczcEdssyw981/6412/17/2024 7:16 PM Maryuri Byers, PCT * TempAnswerDate of WfguenqxkkCufdmn30.511 7:16 PM Maryuri Byers PCT * Temp srcAnswerDate of TyjlnvnpvzJyzynxKupi51 7:16 PM Maryuri Byers, PCT * PulseAnswerDate of SduzghgrdzVfrzvn3959 7:16 PM Maryuri Byers, PCT * RespAnswerDate of KnsxlldhbvJpfgdr5210 7:16 PM Maryuri Byers, PCT * WkB0HkvvycEwae of JccfibljmjCyvikr9144 7:16 PM Maryuri Byers PCT * Head, Ears, Eyes, Nose, and Throat (HEENT)QuestionAnswerDate of Assessment AuthorHead, Ears, Eyes, Nose, and Throat (WDL)X102/17/2024 8:00 PM Tanner Orozco RNR EyeMildly impaired atgoio3812/17/2024 8:00 PM Tanner Orozco RNL Eye Mildly impaired izefjo7112/17/2024 8:00 PM Tanner Orozco RNNoseOther (Comment)12/17/2024 8:00 PM Tanner Orozco RN * Short Portable Mental StatusQuestionAnswerDate of AssessmentAuthorWhat are the date, month, year? 8:00 PM Tanner Orozco RNWhat is the day of the week? 8:00 PM Tanner Orozco RNWhat is the name of this place? 8:00 PM Tanner Orozco RNWhat is your phone number?0 12/17/2024 8:00 PM Tanner Orozco RNHow old are you? 8:00 PM Tanner Manzo RNWhen were you born? 8:00 PM Tanner Orozco RN Who is the current president? 8:00 PM Tanner Orozco RNWho was the president before him? 8:00 PM Tanner Orozco RN * Fall Risk LevelQuestionAnswerDate of AssessmentAuthorMobility zoneLow (Green Zone)12/17/2024 8:00 PM Tanner Orozco RNMorse fall risk zoneLow (Green Zone)12/17/2024 8:00 PM Tanner Orozco RNMental status questionaire zoneLow (Green Zone)12/17/2024 8:00 PM Tanner Orozco RN * Skin Assessment Sign offQuestionAnswerDate of AssessmentAuthorDual Sign-off - Admission/Gwgtagqjadcfkwv771/02/2025 10:30 AM Adriano Klein RNAny new wounds identified on admission/transfer?No12/17/2024 10:30 AM Adriano Klein RN * GastrointestinalQuestionAnswerDate of AssessmentAuthorLast Ntkw96065 12/17/2024 10:30 AM Adriano Klein RNPassing XndeccCu75/02/2025 8:00 PM Tanner Manzo, LINDAbdominal UxrwfsvijjEadrwvmzji43/02/2025 8:00 PM Tanner Orozco, DEEBowel Sounds (All Quadrants)Ieskohegmn23/02/2025 8:00 PM Tanner Orozco, RNGastrointestinal (WDL)X102/17/2024 8:00 PM Tanner Orozco, RNAbdomen HueyycjyceDvkf65/02/2025 8:00 PM Tanner Orozco, RNGastrointestinal Symptoms Xsdjpy7112/17/2024 2:30 PM Adriano Klein RNBowel MiqlhiwdbdrkOk46/02/2025 10:30 AM Adriano Klein RNBowel SoundsAll vfbrghviz25/02/2025 8:00 PM Tanner Manzo RN * Peripheral VascularQuestionAnswerDate of AssessmentAuthorPeripheral Vascular (WDL)WDL102/17/2024 8:00 PM Tanner Orozco RN * MusculoskeletalQuestionAnswerDate of AssessmentAuthorMusculoskeletal (WDL)WDL 12/17/2024 8:00 PM Tanner Orozco RN * PsychosocialQuestionAnswerDate of AssessmentAuthorPsychosocial (WDL)WDL 12/17/2024 8:00 PM Tanner Orozco RN * [place] Fall RiskQuestionAnswerDate of AssessmentAuthorHistory of Falling, Immediate or Within 3 [place]616 8:00 PM Tanner Orozco RNSecondary Mgqonhnpq2319/02/2025 8:00 PM Tanner Orozco, RNAmbulatory Egv460 8:00 PM Tanner Orozco RNIntravenous Therapy/Heparin Mwoh1778 8:00 PM Tanner Orozco, RNGait/Ytobveuhfbce048/02/2025 8:00 PM Tanner Orozco, RNMental Wyzodi329/02/2025 8:00 PM Tanner Orozco RNMorse Fall Risk Score35 12/17/2024 8:00 PM Tanner Orozco RN * Cyrus ScaleQuestionAnswerDate of AssessmentAuthorBraden No Risk Interventions Continue to assess patient according to level of care12/17/2024 8:00 PM Tanner Manzo RNSensory Phegywayrom444/02/2025 8:00 PM Tanner Orozco, RN Oqqhafei076/02/2025 8:00 PM Tanner Orozco, VDZclrfxnp711/02/2025 8:00 PM Tanner Orozco, GIHxcakjtm459/02/2025 8:00 PM Tanner Orozco, RNNutrition2 12/17/2024 8:00 PM Tanner Orozco, RNFriction and Mcgsg72602/17/2024 8:00 PM Tanner Orozco RNBraden Scale Clnfx338712/17/2024 8:00 PM Tanner Oroczo, RN * Heart Rate SourceAnswerDate of EkffsnzsguRbdgiqDswtpua24/02/2025 7:16 PM Maryuri Amaral PCT * BP LocationAnswerDate of AssessmentAuthorLeft arm12/17/2024 7:16 PM Maryuri Amaral PCT * BP MethodAnswerDate of OygxifbysvGbvptuZqgwcipuu15/02/2025 7:16 PM Maryuri Byers PCT * MAP (mmHg)AnswerDate of AqjaceunxcLlrmgn4686/02/2025 7:16 PM Maryuri Byers PCT * CardiacQuestionAnswerDate of AssessmentAuthorCardiac (WDL)WDL102/17/2024 8:00 PM Tanner Orozco RN * RespiratoryQuestionAnswerDate of AssessmentAuthorRespiratory (WDL)WDL 12/17/2024 8:00 PM Tanner Orozco RN * Charting TypeQuestionAnswerDate of AssessmentAuthorCharting TypeShift hbcnonmfbw11/02/2025 8:00 PM Tanner Orozco RN * Values/BeliefsQuestionAnswerDate of AssessmentAuthorCultural Requests During Qyegjzcdqhohodnmozx02/02/2025 10:13 AM Arline Lovelace RNSpiritual Requests During NhnfffmqihaqpspPlwtlvgc36/02/2025 10:13 AM Arline Lovelace, DEE * GenitourinaryQuestionAnswerDate of AssessmentAuthorGenitourinary (WDL)WDL 12/17/2024 8:00 PM Tanner Orozco RN * NeurologicalQuestionAnswerDate of AssessmentAuthorNeuro (WDL)WDL102/17/2024 8:00 PM Tanner Orozco RN * Safe EnvironmentQuestionAnswerDate of AssessmentAuthorArm Bands OnID;Allergies 12/17/2024 8:00 PM Tanner Orozco RNSide Rails/Bed Safety2/ 8:00 PM Tanner Orozco RNBed XbvtahOzs03/02/2025 8:00 PM Tanner Orozco RNThe Patient's Environment is PrroIon20/02/2025 8:00 PM Tanner Orozco RN * MobilityQuestionAnswerDate of AssessmentAuthorProvider XlmeuiblHba01/02/2025 8:00 PM Tanner Orozco RNRestingbed12/17/2024 12:00 PM Adriano Klein RN Activity PerformedAmbulated in room;Mobilizes independently;Resting in bed;Walked to bfecpcdx86/02/2025 12:00 PM Adriano Klein RNAmbulation ResponseTolerated well12/17/2024 12:00 PM Adriano Klein RNRepositioned Turns self12/17/2024 12:00 PM Adriano Klein RNHead of Bed ElevatedHOB 30 12/17/2024 8:00 PM Tanner Orozco RNHeels/FeetFoot of bed elevated 12/17/2024 12:00 PM Adriano Klein RNRange of MotionActive;All extremities 12/17/2024 12:00 PM Adriano Klein RNAnti-Embolism Devices Bilateral;Sequential compression devices, below knee12/17/2024 8:00 PM Tanner Manzo RNAnti-Embolism SghhqztacziwVvpklap00/02/2025 8:00 PM Tanner Orozco RNPositioning FrequencyAble to turn self12/17/2024 8:00 PM Tanner Orozco RN * HygieneQuestionAnswerDate of AssessmentAuthorIs Patient Total Care?No 12/17/2024 12:00 PM Adriano Klein RN * Comfort and Environment InterventionsQuestionAnswerDate of AssessmentAuthor VdeqvpnVribznifoimy29/02/2025 12:00 PM Adriano Klein RN * ADL ScreeningQuestionAnswerDate of AssessmentAuthorDo you snore or wake up gasping for air?Yes12/17/2024 10:10 AM Arline Lovelace RNCan you bring in your CPAP/BiPAP from home?N/A102/17/2024 10:10 AM Arline Lovelace RNPatient's Vision Adequate to Safely Complete Daily XrblbykhreLih09/02/2025 10:10 AM Arline Paredes RNPatient's Judgment Adequate to Safely Complete Daily WcndwreeczMwf33/02/2025 10:10 AM Arline Lovelace RNPatient's Memory Adequate to Safely Complete Daily FfjinenkljCmm55/02/2025 10:10 AM Arline Lovelace RN Patient Able to Express Needs/AijpxhwJku13/02/2025 10:10 AM Arline Lovelace HDOkpgksqdXhtrgulupwx88/02/2025 10:10 AM Arline Lovelace RNGrooming Pcwalfalazz10/02/2025 10:10 AM Arline Lovelace, SZWwpmqsyZucxptzmxqd47/02/2025 10:10 AM Arline Lovelace OXSeuysweDyuxphtwezq07/02/2025 10:10 AM Arline Lovelace OKFvryvlspzYggprrpppti96/02/2025 10:10 AM Arline Lovelace RNIn/Out Bed Eorazyztely10/02/2025 10:10 AM Arline Lovelace RNWalks in HomeIndependent 12/17/2024 10:10 AM Arline Lovelace RNWeakness of EhstSyei43/02/2025 10:10 AM Arline Lovelaec RNWeakness of Arms/KkydsAwdq16/02/2025 10:10 AM Arline Lovelace RNHearing - Right RfxEfpcfwahtj20/02/2025 10:10 AM Arline Lovelace RN Hearing - Left HlvQjfbcsennb68/02/2025 10:10 AM Arline Lovelace RNWhich is your dominant hand?Right12/17/2024 10:10 AM Arline Lovelace RN * ConsultsQuestionAnswerDate of AssessmentAuthorSpiritual Care Consult NeededYes (Comment)12/17/2024 10:13 AM Arline Lovelace RNSocial Services Consult Needed No12/17/2024 10:13 AM Arline Lovelace RNPalliative Care Consult NeededNo 12/17/2024 10:13 AM Arline Lovelace RN * Therapy ConsultsQuestionAnswerDate of AssessmentAuthorPT Evaluation Needed2 12/17/2024 10:10 AM Arline Lovelace RNOT Evaluation Dryqmk413/02/2025 10:10 AM Arline Lovelace RNSLP Evaluation Mqqeho675/02/2025 10:10 AM Arline Lovealce RN * Assistive DevicesQuestionAnswerDate of AssessmentAuthorAssistive Devices Wcpneaetpd63/02/2025 10:10 AM Arline Lovelace RN * [place] Fall Risk InterventionsQuestionAnswerDate of AssessmentAuthor [place] Fall Risk YgtcfzfhnulcvUtnvodpz11/02/2025 8:00 PM Tanner Orozco RN * Calculated C-SSRS Risk Score (Lifetime/Recent)AnswerDate of AssessmentAuthorNo Risk Vyvuwsdgd17/02/2025 10:23 AM Arline Lovelace RN * Suicidal [...] RN * Pain AssessmentQuestionAnswerDate of AssessmentAuthorPain LocationAbdomen 12/17/2024 10:30 AM Adriano Klein RNPain FiqebbagphekcJmtv79/02/2025 8:00 PM Tanner Orozco RNPain FkvjzWlzoqho62/02/2025 10:30 AM Adriano Klein RNPatient's Stated Pain GoalNo pain12/17/2024 8:00 PM Tanner Orozco RN Response to Interventionspt nphdankz25/02/2025 6:28 PM Adriano Klein RN Pain TypeChronic pain12/17/2024 10:30 AM Adriano Klein RNClinical ProgressionNot zwfxywh4912/17/2024 8:00 PM Tanner Orozco RNPain Score6 12/17/2024 8:00 PM Tanner Orozco RNPain Assessment0-10102/17/2024 8:00 PM Tanner Orozco RN * NutritionQuestionAnswerDate of AssessmentAuthorDiet UjldVDE87/02/2025 12:00 PM Adriano Klein RNFeedingAble to feed self12/17/2024 12:00 PM Adriano Klein RN * IntegumentaryQuestionAnswerDate of AssessmentAuthorSkin ColorAppropriate for race12/17/2024 8:00 PM Tanner Orozco RNSkin Condition/TempWarm;Dry 12/17/2024 8:00 PM Tanner Orozco RNSkin IntegrityOther (Comment)12/17/2024 8:00 PM Tanner Orozco RNIntegumentary Additional AssessmentsTattoos 12/17/2024 10:30 AM Adriano Klein RNIntegumentary (WDL)X102/17/2024 8:00 PM Tanner Orozco RNDoes patient have tattoos?Yes12/17/2024 10:30 AM Adriano Drake RN * Audit Alcohol ScreeningQuestionAnswerDate of AssessmentAuthorTo your knowledge, has alcohol ever caused significant problems for the patient? (e.g., significantdistress to patient or those close to patient or impairment in social, occupational, or other important areas of functioning)No12/17/2024 10:13 AM Arline Lovelace RNBrief counselling was offered to the patientNo 12/17/2024 10:13 AM Arline Lovelace RNReferral for addictions treatment was tsrbhcbYc54/02/2025 10:13 AM Arline Lovelace RNHow often do you have a drink containing alcohol? 10:13 AM Arline Lovelace RNHow many standard drinks containing alcohol do you have on a typical day?No12/17/2024 10:13 AM Arline Lovelace RNHow often do you have six or more drinks on one occasion?0 12/17/2024 10:13 AM Arline Lovelace RNAudit-C Yifca95902/17/2024 10:13 AM Arline Paredes RN * Drug ScreeningQuestionAnswerDate of AssessmentAuthorHave you used any substances (canabis, cocaine, heroin, hallucinogens, inhalants, etc.) in the past12 months?No12/17/2024 10:13 AM Arline Lovelace RNHave you used any prescription drugs other than prescribed in the past 12 months?No12/17/2024 10:13 AM Arline Lovelace RN * Patient PositionAnswerDate of KrpyajkntjBnlcqlBrryo75/02/2025 7:16 PM Maryuri Amaral PCT * Modified Malnutrition Screening Tool (MST)QuestionAnswerDate of Assessment AuthorHave you recently lost weight without trying? 10:19 AM Arline Paredes RNHave you been eating poorly because of a decreased appetite?3 12/17/2024 10:19 AM Arline Lovelace RNOn home tube feeding or TPN? 10:19 AM Arline Lovelace RNDoes patient have a stage 2-4 pressure ulcer?0 12/17/2024 10:19 AM Arline Lovelace RN * Weight Loss ScoreAnswerDate of InftjtyiriNavqyg407/02/2025 10:19 AM Arline Lovelace RN * Malnutrition ScoreAnswerDate of FeeexixqmbLmcuba419/02/2025 10:19 AM Arline Lovelace RN documented as of this encounter Plan of Treatment DateTypeDepartmentCare Team (Latest Contact Info)Ujkmajmzljm14/13/2025 3:00 PM ESTOffice Visit [facility] [address] [place] [address] Donnie Cesar MD [address] [place] [address] 01/31/2025 11:00 AM ESTOffice Visit [facility] [address] [place] [address] Wali Collins MD [address] [place] [address] documented as of this encounter Visit Diagnoses Not on filedocumented in this encounter Care Teams Team MemberRelationshipSpecialtyStart DateEnd Date Thomas Alas MD [address] [facility] [address] [address] PCP - GeneralFamily Medicine08/17/24documented as of this encounter
--- OUTSIDE RECORDS SUMMARY | 2024-12-27 11:39 | XMS_ITS ---
Author Organization [facility] Address [address] [place] [address] Care Team Providers Care Office Sweeper Name Role Phone Thomas Alas MD Primary Care Provider [phone] Active Problems ProblemNoted DateDiagnosed DatePartial bowel exzobjypzlq67/02/2025Obstructed internal ewhxpw2112/17/2024bnormal thyroid blood test12/05/2024llergic epubbotidvljqs16/21/1156Ydaqnjvp48/21/2025 Overview (12/05/2024): Problem List clean-up per request of Phys. EHR Cmte Edema12/05/20241236Hefsjdczccaq22/21/5678Tqsyskmhsrw40/21/2025Otitis media of left ear12/05/2024Postgastric surgery omosmpva88/21/8483Odplwkwkp65/21/2025 Overview (12/05/2024): Problem List clean-up per request of Phys. EHR Cmte Common bile duct yehupyiswr49/02/2025 Assessment & Plan (11/16/2024 2:13 AM EDT): CT chest/abd/pelvis noted CBD dilation and apperance of complex inflammatory changes. Patient has required multiple doses of opiates and antiemetics to control symptoms. Request to transfer to the [facility] where much of her advanced care has been provided with Specific concern that she may need ERCP/advanced endoscopy to further evaluation Pain management GI consult Disorder of endocrine oclnqk6111/09/2024Lumbar /25/2025Migraine 11/09/2024Severe protein-calorie malnutrition (Baxter: less than 60% of standard weight)11/09/2024Pseudoaneurysm of right femoral wzbmsr4311/09/2024 Assessment & Plan (11/12/2024 12:39 PM EDT): [...] pseudoaneurysm 11/02 -stable - follow Hgb Myocardial nerfoo5711/09/2024 Assessment & Plan (11/12/2024 12:39 PM EDT): [...] need to uptitrate verapamil if BP allows Zsjtmrlk04/18/2025Chest pain10/30/2024 Assessment & Plan (11/16/2024 2:13 AM [...] without complication, without long-term current use of sbmpewr6410/30/2024 Assessment & Plan (11/12/2024 12:39 PM EDT): [...] at home, will begin ISS, ACHS Primary vvocrqhcfonq35/15/2025Other pcfuguxwthvluh60/15/1871Cqfrlv39/15/2025 Assessment & Plan (11/02/2024 1:29 PM EDT): [...] Stable, last BM yesterday Median arcuate ligament temffspi19/15/2025 Assessment & Plan (11/12/2024 12:39 PM EDT): [...] and then MALS release S/P laparoscopic sleeve maihfbembhi41/15/2025 Assessment & Plan (11/12/2024 12:39 PM EDT): [...] 9:00 PM EDT): - Stable Protein calorie isyxupbuzadh92/15/2025 Assessment & Plan (11/02/2024 1:29 PM EDT): [...] pain today patient brought urgently back to [facility] Assessment & Plan (11/01/2024 11:57 AM EDT): [...] -Pending TTE, cath Spontaneous dissection of coronary fejuvl8810/30/2024 Assessment & Plan (11/12/2024 12:39 PM EDT): [...] pain today patient brought urgently back to [facility] Feeding fenwjovjjwdr66/09/2025roken central line09/21/2024Long term (current) use of opiate eujsslaxv55/07/2025Poor response to enteral /28/2025 Sepsis due to Pyclkiobor69/04/2025 Assessment & Plan (08/19/2024 1:03 PM EDT): - source is likely the cellulitis around the J-tube status post J-tube removal. - CT scan from [facility] showing no abscess. - Infectious disease recommendations appreciated, continue with ceftriaxone. - Repeat blood cultures on 08/16: NGTD - central line in place, does not look like infected, continue monitoring, central line care. Assessment & Plan (08/18/2024 12:20 PM EDT): - source is likely the cellulitis around the J-tube status post J-tube removal. - CT scan from [facility] showing no abscess. - Infectious disease recommendations appreciated, continue with ceftriaxone. - Repeat blood cultures on 08/16: NGTD - central line in place, does not look like infected, continue monitoring, central line care. Sepsis due to Rcwjceowpgmz76/04/2025 Assessment & Plan (08/19/2024 1:03 PM EDT): - source is likely the cellulitis around the J-tube status post J-tube removal. - CT scan from [facility] showing no abscess. - Infectious disease recommendations appreciated, continue with ceftriaxone. - Repeat blood cultures on 08/16: NGTD - central line in place, does not look like infected, continue monitoring, central line care. Assessment & Plan (08/18/2024 12:20 PM EDT): - source is likely the cellulitis around the J-tube status post J-tube removal. - CT scan from [facility] showing no abscess. - Infectious disease recommendations appreciated, continue with ceftriaxone. - Repeat blood cultures on 08/16: NGTD - central line in place, does not look like infected, continue monitoring, central line care. Svlkknqwtuphz53/04/2025 Assessment & Plan (11/12/2024 12:39 PM EDT): [...] admission. - As needed antiemetics Chronic pain axednsnl21/04/2025 Assessment & Plan (11/12/2024 12:39 PM EDT): [...] and scheduled tramadol. Continue with as needed Brandon. Assessment & Plan (08/18/2024 12:20 PM EDT): - continue with home meds including fentanyl patch and scheduled tramadol. Continue with as needed Brandon. 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 Assessment & Plan (08/18/2024 12:20 PM EDT): - status postresection. History of adrenal zttpfjbilkrhv68/04/2025 Assessment & Plan (11/12/2024 12:39 PM EDT): [...] PM EDT): - continue with dexamethasone Acquired dnofvhptnsqrwc90/04/2025 Assessment & Plan (11/16/2024 2:13 AM EDT): [...] 12:20 PM EDT): - continue with levothyroxine. Zrmutwbfqccdgs55/03/2025 Assessment & Plan (11/12/2024 12:39 PM EDT): [...] well as other thyroid function testing Morbid pqkwajk6308/17/2024 Assessment & Plan (08/19/2024 1:03 PM EDT): [...] daily DVT prophylaxis is VTE protocols per [facility] GI prophy Protonix Monitor labs) Obtain blood cultures Comments IV Vanco and cefepime Consult infectious diseases Early ambulation I discussed the plan of care with the patient and she is in agreement. Obqjnmvujy82/02/2025 Assessment & Plan (08/17/2024 1:27 AM EDT): -Unclear blood cultures - Commence patient on Vanco/cefepime - Monitor patient blood cultures - Also evaluate lab tests and correct abnormalities - Consult infectious disease - Obtain 2D echocardiogram History of laparoscopic puoqvsbkwscddef63/25/2025hronic, continuous use of yognghv0904/11/2024Starvation bugyumbgwyof90/25/2025Intestinal whblhvmia40/07/2024 Screening for diabetes mellitus (DM)01/22/2024History of small bowel obstruction 01/21/2024Impaired intestinal vmguhptfmu36/18/6247Cxxic55/25/2024urrent use of steroid /21/2024ommunity acquired pneumonia of left lower lobe of lung08/07/2023Idiopathic fspecugsiki92/21/2024spiration pneumonia of left lower lobe due to vomit08/04/2023Syncope and ghabwsec04/19/2024Heart vqiqvau5206/29/2023 Acute renal failure superimposed on chronic kidney ryqrmlb4506/29/2023Hypokalemia 06/29/2023ecreased oral eoltnf8305/25/20239020Oxumfsvkwnypfw31/19/2024nxiety and tcnlhlxjax79/23/2023Feeding rqplcik6612/07/2022Therapeutic drug monitoring 12/07/20224950Rditsnyyrig93/12/2023ilious vomiting with zlislc7210/28/2022Intractable vomiting with rtfjpf2410/25/20221964Bepceh71/20/2023 Overview (11/09/2024): Takes Pro FE daily. Last Assessment & Plan: Assessment: iron infusions ~1 month ago Acute pain of right knee08/04/2022all stone08/04/2022Internal derangement of right lilhlvnv63/20/2023Mixed incontinence urge and kcdfro6608/04/2022Other specified noninflammatory disorders of vhhvce4608/04/2022atellofemoral pain syndrome of right knee08/04/2022Right flank pain08/04/2022Vaginal pain08/04/2022 Rash and nonspecific skin cuhnfafu32/07/2023History of Isabel-en-Y gastric bypass 06/24/2022ipolar zueygjut93/07/2023astric ptngep9101/29/2022Iron deficiency wcwtvk8211/01/2021Ventral hernia without obstruction or heoecdtr74/27/2022 Overview (12/05/2024): Last Assessment & Plan: Assessment: will have surgery Calculus of hvuenc5103/10/2021bnormal finding on imaging of liver04/07/2020 Moderate recurrent major axehmmclef76/18/2020Situational mqmkfq4001/03/2020Panic disorder without avszculcwsz51/06/2020Trauma and stressor-related disorder 11/21/2019Duodenogastric reflux of bile11/16/20193106Rjptya19/10/2020Preoperative wozyaqdlisb80/10/2020Regurgitation of food09/25/2019Laryngopharyngeal reflux 10/07/2018Obstructive sleep apnea pukymvnz71/23/2019 Overview (12/05/2024): wears mask every night Tmisbdlqpbmxzx02/20/2019Reactive ggkjqlcmblub80/19/2019Chronic fatigue syndrome 09/19/2018Iron daowrzsrxq69/05/2019Vitamin D kqxymvgydc51/05/2019Insomnia 09/15/2018Maltracking of right hosqbtn2406/27/2018Chondromalacia of patella, right 05/30/2018Arthritis of right knee05/30/201839 weeks gestation of 11/23/2016PCOS (polycystic ovarian syndrome)10/02/2013 Overview (11/09/2024): Last Assessment & Plan: Assessment: monitored per PCP Current Treatment and Therapy Plans No current plan information found. Past Treatment and Therapy Plans No past plan information found. Lifetime Dose Tracking * ChemicalLifetime DoseAutomatic EntryManual EntryFluoro Time1,946.2 minutes0 minutes1,946.2 minutesAir Kerma1,280 mGy0 mGy1,280 mGyDose Area Axpdzyj261,543 mGy-cm20 mGy-fb4545,543 mGy-cm2
--- OUTSIDE RECORDS SUMMARY | 2024-12-27 11:40 | XMS_ITS | Clinical Summary ---
Author Organization [facility] Address [address] [facility], [address] [place] [address] Care Team Providers Care Table Hand Name Role Phone Thomas Alas MD Primary Care Provider [phone] Allergies Active AllergyReactionsCriticalityNoted DateCommentsAdhesive TapeOther (See Comments)Qxbgnp8602/07/2020 Sensitive to certain adhesive tapes. Redness and itchy. CodeineNausea And RyvmooluPdq93/09/2025NsaidsOther (See Comments)01/29/2022 Gastric bypass S/p RYGB S/p RYGB Oxycodone-HhesxyefmthtuBpytgjbxjuwAwdz45/30/2023Wound Dressing AdhesiveOther (See Comments)Ruvgpc7702/07/2020 Sensitive to certain adhesive tapes. Redness and [...] MG tablet Take 1 tablet by mouth udxonew49/5Active ranolazine (RANEXA) 500 MG extended release tablet [...] tablet by mouth 2 times daily as loacrw16/Expired cephALEXin (KEFLEX) 500 MG capsule Take 1 capsule by mouth 3 times daily for 7 days 21 capsule /Expired phenazopyridine (PYRIDIUM) 200 MG tablet Take 1 tablet by mouth 3 times daily as needed for Pain (bladder spasm/pain) 6 tablet /Expired Active Problems ProblemNoted DateDiagnosed DateIntractable nausea and /14/2023 Encounters DateTypeDepartmentCare XfvuQnzwfmyafih73/27/2025Results Follow-Up [facility] Emergency Department [address] [place], [place] [id number] Kera Smith RN 12/04/2024 2:32 PM EDT - 12/04/2024 6[facility] [address] [place], [place] [id number] Hematuria, unspecified type (Primary Dx) Discharge Disposition: Home or Self Care12/04/20245637Bxbige00/18/2025 10:18 AM EDT - 12/02/2024 12:[facility] [address] [place], [place] [id number] Gross hematuria (Primary Dx); Painful bladder spasm; Right flank pain Discharge Disposition: Home or Self Care12/02/20244194Mnazll09/09/2025 5:32 PM EDT - 11/23/2024 8:[facility] [address] [place], [place] [id number] Shelley Sanz DO Acute urinary retention (Primary Dx); Acute UTI Discharge Disposition: Home or Self Care11/23/20248381Yszhno99/01/2025 1:15 PM EDT - 11/15/2024 6:50 PM [facility] [address] [place] [address] Jory Hurd DO Chest pain, unspecified type (Primary Dx) Discharge Disposition: [facility] Care Imdahgeh10/01/9775Dswesc73/24/2025 12:31 PM EDT - 11/09/2024 8:[facility] [address] [place] [address] Oc Graham MD Chest pain, unspecified type (Primary Dx) Discharge Disposition: Another [facility] Ekvzhgxk66/24/2025Travelfrom Last 3 Months Social History Tobacco UseTypesPacks/DayYears [...] Safety Domain Source: IP Abuse ScreeningAnswerDate RecordedPhysical dmbmwUimubo62/18/2025 Verbal voatnFlibjs13/18/2025Emotional fiewpAqgdyt58/18/2025Financial abuseDenies 12/02/2024Sexual dhcyrShcghv30/18/2025CommentsNoSex and Gender InformationValueDate RecordedSex Assigned at BirthNot on fileLegal SexFemale 04/12/2013 2:41 PM ESTGender IdentityNot on fileSexual OrientationNot on file Last Filed Vital Signs Vital SignReadingTime TakenCommentsBlood Tkfwvgzy867/4612/04/2024 6:01 PM EDT Uqybr449612/04/2024 2:30 PM YALYlgjuoxaoir09.7 ??C (98.1 ??F)12/04/2024 2:30 PM EDTRespiratory Tmst6505 2:30 PM EDTOxygen Kyngbbccvf43%12/04/2024 6:01 PM EDTInhaled Oxygen Concentration--Qpjqud65.6 kg (180 lb)12/02/2024 10:14 AM PNIBmnyio914.6 cm (5' 6 )12/02/2024 10:14 AM EDTBody Mass Index29.0512/02/2024 10:14 AM EDT Plan of Treatment Health MaintenanceDue DateLast QoxrDwjpttdbHbicdj39/17/2000Depression Screen 2001Varicella vaccine (1 of 2 - 13+ 2-dose series)2002HIV screen 2004Hepatitis C xrjbnn0904/03/2007Hepatitis B vaccine (1 of 3 - 19+ [...] DiagnosisCommentsCT UROGRAMSTAT 12/04/2024 4:29 PM EDT MICROSCOPIC KIAZEGWDJGMxksnea90/20/2025 2:55 PM EDT MTOJEUGQPWSCQG93/20/2025 2:55 PM EDT CULTURE, QCRZKAAFY55/20/2025 2:55 PM EDT PROTIME-VLNVOMB0012/04/2024 2:53 PM EDT BASIC METABOLIC BPEVJLLYS33/20/2025 2:53 PM EDT CBC WITH AUTO ZGPTXJYDLDKFMMLV38/20/2025 2:53 PM EDT MICROSCOPIC RKDGYOEDRUKnbqoyp36/18/2025 11:54 AM EDT URINALYSIS WITH REFLEX TO RCSKWVVEXTL47/18/2025 11:[address] ABDOMEN PELVIS WO OGRBDPQYXMZZ08/18/2025 11:30 AM EDT ZMDHCPBQRJADK15/18/2025 11:12 AM EDT LACTIC PJZYWZAV31/18/2025 11:12 AM EDT CBC WITH AUTO ROZILLNONSAABZEN24/18/2025 11:12 AM EDT COMPREHENSIVE METABOLIC OCYWOSXJJ79/18/2025 11:12 AM EDT EKG 12-LJEPDdnipvt27/09/2025 6:44 PM EDT IZVFHYKVSPJZ94/09/2025 6:16 PM EDT BASIC METABOLIC NNHLJFFWM88/09/2025 6:16 PM EDT CBC WITH AUTO LPRXHDHHKWSCWUJW29/09/2025 6:16 PM EDT MICROSCOPIC YRDMXVCZTHOfaauso98/09/2025 5:40 PM EDT URINALYSIS WITH REFLEX TO TUJISXZMPVK78/09/2025 5:40 PM EDT CZAGCULMGHIE70/01/2025 2:35 PM EDT SOVZCBVM75/01/2025 1:25 PM EDT PROTIME-QVOKIPX7811/15/2024 1:25 PM EDT BRAIN NATRIURETIC GDTUEXUDSPM04/01/2025 1:25 PM EDT KXBHANXSORZY53/01/2025 1:25 PM EDT CBC WITH AUTO ZESPTAQYWUPTMVYX70/01/2025 1:25 PM EDT BASIC METABOLIC KANEWOETV33/01/2025 1:25 PM EDT XR CHEST GAWNBZMQANIR04/01/2025 1:24 PM EDT EKG 12-RHUXICUU46/01/2025 1:19 PM EDT POCT GKQNZYYMeqgjic16/24/2025 11:06 PM EDT POCT DEQLFYSZMTF97/24/2025 11:06 PM EDT POCT ZYPWKPRPDXU67/24/2025 8:09 PM EDT POCT DDCTHXHEfadzsx18/24/2025 7:55 PM EDT WZBTWWBDXBTB57/24/2025 6:38 PM EDT POCT SHRJDJZKbuiaao06/24/2025 4:04 PM EDT EKG 12-JWQZYGVJ99/24/2025 4:01 PM EDT POCT USTATTZHfgopsu36/24/2025 2:03 PM EDT CTA CHEST ABDOMEN PELVIS W WO BZULYLBAPDRS67/24/2025 1:43 PM EDT PROTIME-JCMAQEC2611/08/2024 1:39 PM EDT UZUXUNLT68/24/2025 1:39 PM EDT POCT HUUKNFFCSKSSSM08/24/2025 1:16 PM EDT POCT IJALJZPhwajeq53/24/2025 1:14 PM EDT LXFHBQNGEDYG70/24/2025 12:50 PM EDT COMPREHENSIVE METABOLIC PANEL W/ REFLEX TO MG FOR LOW KSTAT11/08/2024 12:50 PM EDT CBC WITH AUTO CZLVFSIHXEWGLIFB15/24/2025 12:50 PM EDT POCT WTNKQSBLzclval18/24/2025 12:38 PM EDT EKG 12-MRXLWsxcgdo04/24/2025 12:37 PM EDT from Last 3 Months [...] change noted. Authorizing ProviderResult TypeResult StatusMarciemily Marion MORALE OFFICER - CNPIMG CT ORDERABLESFinal Result * (ABNORMAL) Microscopic Urinalysis (12/04/2024 2:55 PM EDT) Only the most recent of3 resultswithin the time period is included. ComponentValueRef RangeTest MethodAnalysis TimePerformed AtPathologist Signature WBC, UA2 TO 50 - 5 /HPF12/04/2024 2:55 PM [facility] RBC, UAGREATER THAN 1000 - 2 /HPF12/04/2024 2:55 PM [facility] LABEpithelial Cells, UA0 TO 20 - 25 /HPF12/04/2024 2:55 PM [facility] LABBacteria, UA2+(A)None12/04/2024 2:55 PM [facility] LABSpecimen (Source)Anatomical Location / Laterality Collection Method / VolumeCollection TimeReceived Time12/04/2024 2:55 PM EDT 12/04/2024 3:03 PM EDT Narrative Authorizing ProviderResult TypeResult StatusMarciemily Marion MORALE OFFICER - CNPURINE ORDERABLESFinal ResultPerforming OrganizationAddressCity/State/ZIP CodePhone Number [facility] [address] [phone] * (ABNORMAL) Urinalysis (12/04/2024 2:55 PM EDT)ComponentValueRef RangeTest MethodAnalysis TimePerformed AtPathologist SignatureColor, UARed(A)Yellow 12/04/2024 2:55 PM [facility] LABTurbidity UAClearClear 12/04/2024 2:55 PM [facility] LABGlucose, UrNEGATIVE NEGATIVE mg/dL12/04/2024 2:55 PM [facility] LABBilirubin, OxuktNUMHGUJTNLTPOZAU35/20/2025 2:55 PM [facility] Ketones, Urine1+(A)NEGATIVE mg/dL12/04/2024 2:55 PM [facility] LABSpecific [place], UA1.0201.010 - 1.2624812/04/2024 2:55 PM [facility] LABUrine Hgb3+(A)SHCCIFAX35/20/2025 2:55 PM [facility] LABpH, Urine7.05.0 - 9.010 2:55 PM [facility] LABProtein, UA2+(A)NEGATIVE mg/dL12/04/2024 2:55 PM EDT [facility] LABUrobilinogen, UrineELEVATED0.0 - 1.0 EU/dL 12/04/2024 2:55 PM [facility] LABNitrite, UrinePOSITIVE (A)IFXHENNT33/20/2025 2:55 PM [facility] LABLeukocyte Esterase, UrineSMALL(A)ERJXDZTC39/20/2025 2:55 PM [facility] LABSpecimen (Source)Anatomical Location / LateralityCollection Method / VolumeCollection TimeReceived TimeUrineURINE SPECIMEN / Ywrafmy9112/04/2024 2:55 PM EDT1 3:03 PM EDT Narrative Authorizing ProviderResult TypeResult StatusNeeta Marion MORALE OFFICER - CNPURINE ORDERABLESFinal ResultPerforming OrganizationAddressCity/State/ZIP CodePhone Number [facility] [address] [phone] * (ABNORMAL) Culture, Urine (12/04/2024 2:55 PM EDT)ComponentValueRef RangeTest MethodAnalysis TimePerformed AtPathologist SignatureSpecimen Description.CLEAN CATCH URINE12/04/2024 2:55 PM [facility] LABSpecial RequestsSite: Urine12/04/2024 2:55 PM [facility] CulturePSEUDOMONAS FLUORESCENS >100,000 CFU/ML(A)12/04/2024 2:55 PM [facility] LABORATORIESCultureSTENOTROPHOMONAS (XANTHOMONAS) MALTOPHILIA >100,000 CFU/ML (A)12/04/2024 2:55 PM [facility] LABORATORIESSpecimen (Source)Anatomical Location / LateralityCollection Method / VolumeCollection TimeReceived Time UrineURINE SPECIMEN / Ivorjmt5212/04/2024 2:55 PM EDT1 6:26 PM EDT Narrative OrganismAntibioticMethodSusceptibilityPseudomonas fluorescenslevofloxacin BACTERIAL SUSCEPTIBILITY PANEL SANDHYA 0.5: Sensitive Pseudomonas fluorescenspiperacillin-tazobactamBACTERIAL SUSCEPTIBILITY PANEL SANDHYA 8: Sensitive Stenotrophomonas maltophilialevofloxacinBACTERIAL SUSCEPTIBILITY PANEL SANDHYA 0.25: Sensitive Stenotrophomonas maltophiliatrimethoprim-sulfamethoxazoleBACTERIAL SUSCEPTIBILITY PANEL SANDHYA <=20: Sensitive Authorizing ProviderResult TypeResult StatusMarcia A Doni MORALE OFFICER - GLUE CLAMP OPERATOR MICROBIOLOGY - GENERAL ORDERABLESFinal ResultPerforming OrganizationAddress City/State/ZIP CodePhone Number [facility] [address] [place] [address], [facility] [phone] [facility] [address] [place] [address], [facility] [phone] * (ABNORMAL) CBC with Auto Differential (12/04/2024 2:53 PM EDT) Only the most recent of5 resultswithin the time period is included. ComponentValueRef RangeTest MethodAnalysis TimePerformed AtPathologist Signature WBC4.13.5 - 11.3 k/uL12/04/2024 2:53 PM [facility] LABRBC 3.21(L)3.95 - 5.11 m/uL12/04/2024 2:53 PM [facility] Hemoglobin9.4(L)11.9 - 15.1 g/dL12/04/2024 2:53 PM [facility] XXXWipxtenglv80.2(L)36.3 - 47.1 %12/04/2024 2:53 PM [facility] SKRQWI35.982.6 - 102.9 fL12/04/2024 2:53 PM [facility] YCXCVB41.325.2 - 33.5 pg12/04/2024 2:53 PM [facility] URHNQSD18.328.4 - 34.8 g/dL12/04/2024 2:53 PM [facility] TBXFWT74.711.8 - 14.4 %12/04/2024 2:53 PM [facility] SLNCdbutrhmi880887 - 453 k/uL12/04/2024 2:53 PM [facility] ZKUNNJ58.68.1 - 13.5 fL12/04/2024 2:53 PM [facility] LABNRBC Automated0.00.0 per 100 WBC12/04/2024 2:53 PM [facility] LABNeutrophils %5136 - 65 %12/04/2024 2:53 PM [facility] LABLymphocytes %3724 - 43 %12/04/2024 2:53 PM [facility] LABMonocytes %93 - 12 %12/04/2024 2:53 PM [facility] LABEosinophils %21 - 4 %12/04/2024 2:53 PM [facility] LABBasophils %10 - 2 %12/04/2024 2:53 PM [facility] LABImmature Granulocytes %00 %12/04/2024 2:53 PM [facility] LABNeutrophils Absolute2.091.50 - 8.10 k/uL12/04/2024 2:53 PM [facility] LABLymphocytes Absolute1.491.10 - 3.70 k/uL12/04/2024 2:53 PM [facility] LABMonocytes Absolute0.360.10 - 1.20 k/uL12/04/2024 2:53 PM [facility] LABEosinophils Absolute 0.080.00 - 0.44 k/uL12/04/2024 2:53 PM [facility] Basophils Absolute0.040.00 - 0.20 k/uL12/04/2024 2:53 PM [facility] LABImmature Granulocytes Absolute<0.030.00 - 0.30 k/uL12/04/2024 2:53 PM [facility] LABSpecimen (Source)Anatomical Location / LateralityCollection Method / VolumeCollection TimeReceived TimeBloodBLOOD SPECIMEN / Kpirbaw7412/04/2024 2:53 PM EDT1 3:02 PM EDT Narrative Authorizing ProviderResult TypeResult StatusMarpapa Marion MORALE OFFICER - GLUE CLAMP OPERATOR HEMATOLOGY ORDERABLESFinal ResultPerforming OrganizationAddressCity/State/ZIP CodePhone Number [facility] [address] [place] [address], [facility] [phone] * Protime-INR (12/04/2024 2:53 PM EDT) Only the most recent of3 resultswithin the time period is included. ComponentValueRef RangeTest MethodAnalysis TimePerformed AtPathologist Signature Yppophe79.112.0 - 15.0 sec12/04/2024 2:53 PM [facility] INR1.110 2:53 PM [facility] LABComment: ? Therapeutic Range: Moderate Anticoagulant Intensity: INR = 2.0-3.0 High Anticoagulant Intensity: INR = 2.5-3.5 Specimen (Source)Anatomical Location / LateralityCollection Method / Volume Collection TimeReceived TimeBloodBLOOD SPECIMEN / Hgkwrlh4512/04/2024 2:53 PM EDT 12/04/2024 3:02 PM EDT Narrative Authorizing ProviderResult TypeResult StatusMarciemily Marion MORALE OFFICER - GLUE CLAMP OPERATOR HEMATOLOGY ORDERABLESFinal ResultPerforming OrganizationAddressCity/State/ZIP CodePhone Number [facility] [address] [phone] * (ABNORMAL) BMP (12/04/2024 2:53 PM EDT) Only the most recent of3 resultswithin the time period is included. ComponentValueRef RangeTest MethodAnalysis TimePerformed AtPathologist Signature Yjuxax322790 - 145 mmol/L1 2:53 PM [facility] Potassium3.93.7 - 5.3 mmol/L1 2:53 PM [facility] XQFVyrrbzih260(H)98 - 107 mmol/L1 2:53 PM [facility] UGPYF29750 - 31 mmol/L1 2:53 PM [facility] LABAnion Gap8(L)9 - 16 mmol/L1 2:53 PM [facility] QVTAfagksd3178 - 99 mg/dL12/04/2024 2:53 PM [facility] PGBHHM01 - 20 mg/dL12/04/2024 2:53 PM [facility] LABCreatinine0.60.50 - 0.90 mg/dL12/04/2024 2:53 PM [facility] LABEst, Glom Filt Rate>90>60 mL/min/1.80v90912/04/2024 2:53 PM [facility] LABComment: ? These results are not [...] therapy that affects renal tubular secretion. BUN/Creatinine Nevgu615 - 2:53 PM [facility] LABCalcium8.2(L)8.6 - 10.4 mg/dL12/04/2024 2:53 PM [facility] LABSpecimen (Source)Anatomical Location / LateralityCollection Method / VolumeCollection TimeReceived TimeBloodBLOOD SPECIMEN / Wmkptjv9612/04/2024 2:53 PM EDT1 3:02 PM EDT Narrative Authorizing ProviderResult TypeResult StatusMarciemily Marion MORALE OFFICER - CNPCHEMISTRY ORDERABLESFinal ResultPerforming OrganizationAddressCity/State/ZIP CodePhone Number [facility] [address] [phone] * (ABNORMAL) Urinalysis with Reflex to Culture (12/02/2024 11:54 AM EDT) Only the most recent of2 resultswithin the time period is included. ComponentValueRef RangeTest MethodAnalysis TimePerformed AtPathologist Signature Color, UARed(A)Ffsozd8612/02/2024 11:54 AM [facility] Turbidity JQXcnqsImsji67/18/2025 11:54 AM [facility] Glucose, UrNEGATIVENEGATIVE mg/dL12/02/2024 11:54 AM [facility] LABBilirubin, HebyiPLGEBNEYSPYJXUXQ37/18/2025 11:54 AM [facility] LABKetones, UrineNEGATIVENEGATIVE mg/dL12/02/2024 11:54 AM EDT [facility] LABSpecific [place], UA1.0101.010 - 1.9400812/02/2024 11:54 AM [facility] LABUrine Hgb3+(A)KNPILESQ20/18/2025 11:54 AM [facility] LABpH, Urine7.05.0 - 9.010 11:54 AM [facility] LABProtein, UATRACE(A)NEGATIVE mg/dL 12/02/2024 11:54 AM [facility] LABUrobilinogen, UrineNormal 0.0 - 1.0 EU/dL12/02/2024 11:54 AM [facility] LABNitrite, BxwcyEYXBBCTUJYJBDNEA88/18/2025 11:54 AM [facility] Leukocyte Esterase, BomojDJLWKMCVXXGJUUJW33/18/2025 11:54 AM [facility] LABSpecimen (Source)Anatomical Location / LateralityCollection Method / VolumeCollection TimeReceived TimeURINE SPECIMEN / Iqlaiub1412/02/2024 11:54 AM EDT1 11:57 AM EDT Narrative Authorizing ProviderResult TypeResult StatusDavid Chris DUNCAN ORDERABLES Final ResultPerforming OrganizationAddressCity/State/ZIP CodePhone Number [facility] [address] [phone] * CT ABDOMEN PELVIS WO CONTRAST Additional [...] AtPathologist SignatureMagnesium1.81.6 - 2.6 mg/dL12/02/2024 11:12 AM [facility] LABSpecimen (Source)Anatomical Location / LateralityCollection Method / VolumeCollection TimeReceived Time BloodBLOOD SPECIMEN / Nklwhfc8112/02/2024 11:12 AM EDT1 11:14 AM EDT Narrative Authorizing ProviderResult TypeResult StatusDad Chris PA-CCHEMISTRY ORDERABLESFinal ResultPerforming OrganizationAddressCity/State/ZIP CodePhone Number [facility] [address] [place] [address] * Lactic Acid (12/02/2024 11:12 AM EDT)ComponentValueRef RangeTest Method Analysis TimePerformed AtPathologist SignatureLactic Acid0.80.5 - 2.2 mmol/L 12/02/2024 11:12 AM [facility] LABSpecimen (Source) Anatomical Location / LateralityCollection Method / VolumeCollection Time Received TimeBloodBLOOD SPECIMEN / Avonsdy3812/02/2024 11:12 AM EDT1 11:14 AM EDT Narrative Authorizing ProviderResult TypeResult StatusDajose Rehabilitation Hospital Of South Jerseywilmar PA-CCHEMISTRY ORDERABLESFinal ResultPerforming OrganizationAddressCity/State/ZIP CodePhone Number [facility] [address] [place] [address], [facility] [phone] * (ABNORMAL) CMP (12/02/2024 11:12 AM EDT)ComponentValueRef RangeTest Method Analysis TimePerformed AtPathologist IwkqaqoddEtoqgo318737 - 145 mmol/L 12/02/2024 11:12 AM [facility] LABPotassium3.93.7 - 5.3 mmol/L1 11:12 AM [facility] YEAYzyfvrtf30638 - 107 mmol/L1 11:12 AM [facility] JARQO50744 - 31 mmol/L1 11:12 AM [facility] LABAnion Gap99 - 16 mmol/L1 11:12 AM [facility] HVUUfnnklu7693 - 99 mg/dL12/02/2024 11:12 AM [facility] SUZNSW24 - 20 mg/dL 12/02/2024 11:12 AM [facility] LABCreatinine0.70.50 - 0.90 mg/dL12/02/2024 11:12 AM [facility] LABEst, Glom Filt Rate>90>60 mL/min/1.95j77312/02/2024 11:12 AM [facility] LABComment: ? These results are not [...] therapy that affects renal tubular secretion. BUN/Creatinine Hguvc750 - 11:12 AM [facility] LABCalcium8.4(L)8.6 - 10.4 mg/dL12/02/2024 11:12 AM [facility] LABTotal Protein6.0(L)6.6 - 8.7 g/dL12/02/2024 11:12 AM [facility] LABAlbumin3.73.5 - 5.2 g/dL12/02/2024 11:12 AM [facility] LABAlbumin/Globulin Ratio1.61.0 - 2.510 11:12 AM EDT [facility] LABTotal Bilirubin0.30.00 - 1.20 mg/dL12/02/2024 11:12 AM [facility] LABAlkaline Jeultalwqxn1629 - 104 U/L 12/02/2024 11:12 AM [facility] ZBRIWF53(H)10 - 35 U/L 12/02/2024 11:12 AM [facility] SEOQYN72(H)10 - 35 U/L 12/02/2024 11:12 AM [facility] LABSpecimen (Source) Anatomical Location / LateralityCollection Method / VolumeCollection Time Received TimeBloodBLOOD SPECIMEN / Fsvwbds5812/02/2024 11:12 AM EDT1 11:14 AM EDT Narrative Authorizing ProviderResult TypeResult StatusDavid Chris GONZALEZCINCINNATI CHILDREN'S HOSPITAL MEDICAL CENTEREMISTRY ORDERABLESFinal ResultPerforming OrganizationAddressCity/State/ZIP CodePhone Number [facility] [address] [phone] * EKG 12 Lead (11/23/2024 6:44 PM EDT) Only the most recent of4 resultswithin the time period is included. ComponentValueRef RangeTest MethodAnalysis TimePerformed AtPathologist Signature Ventricular Eksg78NLCMSZS [facility] RADIOLOGYAtrial Fsqq51JCZFVBP [facility] RADIOLOGYP-R Throtrmf011lvRPKY [facility] RADIOLOGYQRS Unhiifaw51cpTXOF [facility] RADIOLOGYQ-T Hwkhbbsy[address] [facility] RADIOLOGYQTc Calculation (Bazett)486msMHPN [facility] RADIOLOGYP Axis[address] [facility] RADIOLOGYR Kwlw95vbkoywqFTNS [facility] RADIOLOGYT Uxdl17xvofvbvUOVQ [facility] RADIOLOGYSpecimen (Source)Anatomical Location / LateralityCollection Method / VolumeCollection TimeReceived Time11/23/2024 6:44 PM EDT Narrative MHPN [facility] - 11/23/2024 11:05 PM EDT Normal [...] DOECG ORDERABLES Final ResultPerforming OrganizationAddressCity/State/ZIP CodePhone Number [facility] * Troponin (11/23/2024 6:16 PM EDT) Only the most recent of5 resultswithin the time period is included. ComponentValueRef RangeTest MethodAnalysis TimePerformed AtPathologist Signature Troponin, High Sensitivity<60 - 14 ng/L1 6:16 PM [facility] LABComment:High Sensitivity Troponin values cannot be compared with other Troponin methodologies.Specimen (Source)Anatomical Location / Laterality Collection Method / VolumeCollection TimeReceived TimeBloodBLOOD SPECIMEN / Gqtxies4911/23/2024 6:16 PM EDT1 7:20 PM EDT Narrative Authorizing ProviderResult TypeResult StatusShelley Sanz DOCHEMISTRY ORDERABLESFinal ResultPerforming OrganizationAddressCity/State/ZIP CodePhone Number [facility] [address] [phone] * APTT (11/15/2024 1:25 PM EDT) Only the most recent of2 resultswithin the time period is included. ComponentValueRef RangeTest MethodAnalysis TimePerformed AtPathologist Signature APTT27.823.1 - 33.7 sec11/15/2024 1:25 PM [facility] Comment: ? IV Heparin Therapy Range: ?62.0-94.0 ? Specimen (Source)Anatomical Location / LateralityCollection Method / Volume Collection TimeReceived TimeBloodBLOOD SPECIMEN / Thewuwt5811/15/2024 1:25 PM EDT 11/15/2024 1:49 PM EDT Narrative Authorizing ProviderResult TypeResult StatusJory Hurd DOHEMATOLOGY ORDERABLESFinal ResultPerforming OrganizationAddressCity/State/ZIP CodePhone Number [facility] [address] [place] [address] * (ABNORMAL) Brain Natriuretic Peptide (11/15/2024 1:25 PM EDT)ComponentValueRef RangeTest MethodAnalysis TimePerformed AtPathologist SignatureNT Pro-MNS043(H) 0 - 125 pg/mL11/15/2024 1:25 PM [facility] LABSpecimen (Source)Anatomical Location / LateralityCollection Method / VolumeCollection TimeReceived TimeBloodBLOOD SPECIMEN / Bbxknve1811/15/2024 1:25 PM EDT1 1:49 PM EDT Narrative Authorizing ProviderResult TypeResult Jayme Hurd DOCHEMISTRY ORDERABLESFinal ResultPerforming OrganizationAddressCity/State/ZIP CodePhone Number [facility] [address] [place] [address] * XR CHEST PORTABLE (11/15/2024 1:24 PM [...] acute abnormalities. Authorizing ProviderResult TypeResult StatusAlemanda Hurd [facility] DIAGNOSTIC IMAGING ORDERABLESFinal Result * (ABNORMAL) POCT Glucose (11/08/2024 11:06 PM EDT) Only the most recent of7 resultswithin the time period is included. ComponentValueRef RangeTest MethodAnalysis TimePerformed AtPathologist Signature POC Pvopmbu596(H)70 - 99 mg/dl11/08/2024 11:06 PM [facility] LABPerformed onACCU-CHEK11/08/2024 11:06 PM [facility] LABSpecimen (Source)Anatomical Location / LateralityCollection Method / VolumeCollection TimeReceived Time11/08/2024 11:06 PM EDT11/08/2024 11:19 PM EDT Narrative Authorizing ProviderResult TypeResult StatusUnknown Provider ResultPOINT OF CARE TEST ORDERABLESFinal ResultPerforming OrganizationAddressCity/State/ZIP Code Phone Number [facility] [address] [place] [address], [facility] [phone] * CTA CHEST ABDOMEN PELVIS W WO [...] / Volume Collection TimeReceived TimeBLOOD SPECIMEN / Xydqyjl7011/08/2024 1:16 PM EDT Narrative Authorizing ProviderResult TypeResult StatusOc Graham MDPOINT OF CARE TEST ORDERABLESFinal Result * POCT Venous (11/08/2024 1:14 PM EDT)ComponentValueRef RangeTest MethodAnalysis TimePerformed AtPathologist SignaturePOC Creatinine0.60.6 - 1.2 mg/dL 11/08/2024 1:14 PM [facility] LABEst, Glom Filt Rate>90 >60011/08/2024 1:14 PM [facility] LABComment: Pediatric calculator link [email or web address]://www.kidney.org/professionals/kdoqi/gfr_[email or web address] Effective [...] therapy that affects renal tubular secretion. Sample YcoeDTT7911/08/2024 1:14 PM [facility] LABPerformed on SEE BELOW11/08/2024 1:14 PM [facility] LABComment:Performed on POCSpecimen (Source)Anatomical Location / LateralityCollection Method / VolumeCollection TimeReceived Time11/08/2024 1:14 PM EDT09/ 1:54 PM EDT Narrative Authorizing ProviderResult TypeResult StatusAlen Santos MDPOINT OF CARE TEST ORDERABLESFinal ResultPerforming OrganizationAddressCity/State/ZIP CodePhone Number [facility] [address] [place] [address], [facility] [phone] * (ABNORMAL) Comprehensive Metabolic Panel w/ Reflex to MG (11/08/2024 12:50 PM EDT)ComponentValueRef RangeTest MethodAnalysis TimePerformed AtPathologist VewoahtrjJdzgva826363 - 144 mEq/L11/08/2024 12:59 PM [facility] LABPotassium reflex Magnesium3.63.4 - 4.9 mEq/L11/08/2024 12:59 PM [facility] HIMBqitbior91314 - 107 mEq/L11/08/2024 12:59 PM [facility] OCXMA86525 - 31 mEq/L11/08/2024 12:59 PM [facility] LABAnion Gap99 - 15 mEq/L11/08/2024 12:59 PM [facility] UGCSkvbeba6165 - 99 mg/dL11/08/2024 12:59 PM [facility] XJIHFB184 - 20 mg/dL11/08/2024 12:59 PM EDT [facility] LABCreatinine0.560.50 - 0.90 mg/dL11/08/2024 12:59 PM [facility] LABEst, Glom Filt Rate>90.0>60 11/08/2024 12:59 PM [facility] LABComment: Pediatric calculator link https://www.kidney.org/professionals/kdoqi/gfr_calculatorped Effective [...] secretion. Calcium8.3(L)8.5 - 9.9 mg/dL11/08/2024 12:59 PM [facility] LABTotal Protein6.2(L)6.3 - 8.0 g/dL11/08/2024 12:59 PM [facility] LABAlbumin3.83.5 - 4.6 g/dL11/08/2024 12:59 PM [facility] LABTotal Bilirubin0.40.2 - 0.7 mg/dL11/08/2024 12:59 PM [facility] LABAlkaline Ybjmsvvkptv6191 - 130 U/L11/08/2024 12:59 PM EDT [facility] LSKHJZ406 - 33 U/L11/08/2024 12:59 PM [facility] RIPRNA509 - 35 U/L11/08/2024 12:59 PM [facility] LABGlobulin2.42.3 - 3.5 g/dL11/08/2024 12:59 PM [facility] LABSpecimen (Source)Anatomical Location / LateralityCollection Method / VolumeCollection TimeReceived TimeBloodBLOOD SPECIMEN / Unknown 11/08/2024 12:50 PM EDT11/08/2024 12:50 PM EDT Narrative Authorizing ProviderResult TypeResult StatusAlen Santos MDCHEMISTRY ORDERABLES Final ResultPerforming OrganizationAddressCity/State/ZIP CodePhone Number [facility] [address] [facility] [place] [address], [facility] [phone] from Last 3 Months Insurance Advance Directives * Full Code (Latest Code Status on File) Date ActivatedDate BbsiwsftkggAuzkludr14/14/2023 11:57 AM12/03/2022 7:56 PM NameRelationshipHealthcare Agent RelationshipCommunicationEdna ArtinoParent Secondary Decision Maker* Roddy SinghpousePrimary Decision Maker* Care Teams Team MemberRelationshipSpecialtyStart DateEnd Date Thomas Alas MD [address] [phone] PCP - GeneralFamily Medicine11/08/24
--- OUTSIDE RECORDS SUMMARY | 2024-12-27 11:40 | XMS_ITS | Clinical Summary ---
Author Organization [facility] Address [address] [place] [address] Care Team Providers Care Cardiac Care Unit Nurse Name Role Phone Thomas Alas MD Primary Care Provider [phone] Allergies Active AllergyReactionsCriticalityNoted DateCommentsCodeine And Related 11/12/20172477Fsdhum31/13/2024 Medications MedicationSigDispense QuantityRefillsLast FilledStart DateEnd DateStatus metformin [...] bedtime.12/27/2023ctive Active Problems ProblemNoted DateDiagnosed DateImpaired intestinal bfppqjgrda34/18/2024 Jejunostomy tube gvsfsxn0106/07/2023Median arcuate ligament mmrnoghu30/14/2023 Dysfunction of sphincter of Oddi11/06/2022cquired xzrowbmaeytovc30/10/2023 Intractable vomiting with ynpopb4810/25/2022hronic ebzvtwstziec19/20/2023Mixed anxiety depressive dqtjoqsv53/20/2023ipolar ximbnjde06/07/2023Obesity: body mass index of 35.0-39.91evere protein-calorie yjyfyawusofc91/20/2021 Trauma and stressor-related wbhjybcj60/06/2020Benign essential HTN09/25/2019 Overview (01/25/2024): Last Assessment & Plan: Assessment: not on meds,monitored per PCP BP 141/70 pulse 62 Obstructive sleep apnea /23/2019 Overview (01/25/2024): wears mask every night Chronic fatigue qcpntqez91/05/2019 Social History Tobacco UseTypesPacks/DayYears UsedDateSmoking Tobacco: NeverSmokeless Tobacco: NeverAlcohol UseStandard Drinks/WeekCommentsNo0 (1 standard drink = 0.6 oz pure alcohol)CommentsNoSex and Gender InformationValueDate RecordedSex Assigned at BirthNot on fileLegal QncUibyis31/28/2018 1:19 PM EDTGender Identity Emzyvz8711/12/2017 1:20 PM EDTSexual YjwvwdkhkstAagsihxt49/14/2024 7:37 AM EST Last Filed Vital Signs Vital SignReadingTime TakenCommentsBlood Nisdsmyx526/8209 1:52 PM EDT Blrxh163711/02/2022 1:52 PM ITJYkvtrnfxfcs63.8 ??C (98.3 ??F)11/02/2022 10:34 AM EDTRespiratory Jimi308211/02/2022 1:52 PM EDTOxygen Zhpcxrcszy61%11/02/2022 10:34 AM EDTInhaled Oxygen Concentration--Bzdqpq47.3 kg (188 lb)12/29/2023 10:23 AM NZYWinsjh074.6 cm (5' 6 )12/29/2023 10:23 AM ESTBody Mass Index30.34102/27/2023 10:23 AM EST Plan of Treatment Health MaintenanceDue DateLast DoneCommentsHEPATITIS C VIRUS XBXAIKTSL46/17/1990 TSH1989HIV SCREENING XSEWQMNEFO85/17/2005HEP B VACCINE (1 of 3 - 19+ 3- dose series)2008CERVICAL CANCER SCREENING SYTTGDFTQZ29/17/2011HPV VACCINE (1 - 3-dose SCDM series)2016COVID-19 VACCINE ( season) 501/05/2021, 06/23/2020INFLUENZA VACCINE (#1)509/, 11/16/2021, 01/01/2021, Additional history nzonkaBRRSTOY59/07/202708/08/2016TDAP (ADULT)Wwurisndk24/07/2017PNEUMOCOCCAL VACCINE SERIESAged OutNo longer eligible based on patient's age to complete this topic Insurance * Guarantor: Corby Kong TypeRelation to PatientDate of BirthPhoneBilwheeling hospital AddressPersonal/HjebxkFeak09/17[birth year][phone] [place] [address] * Guarantor: Corby Kong TypeRelation to PatientDate of BirthPhoneBilwheeling hospital AddressPersonal/VvwpahAxps87[birth year][id number] [address] Care Teams Team MemberRelationshipSpecialtyStart DateEnd Thomas Alas MD PCP - Tlniqop07/14/24
--- OUTSIDE RECORDS SUMMARY | 2024-12-27 11:40 | XMS_ITS | Clinical Summary ---
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 Redness and itchy. CodeineNausea And YsjegsmlZjohcm70/02/2025Nsaids (Non-Steroidal Anti- Inflammatory Drug)GI bwgrlplxsdyYntqpr58/02/2025 Medications MedicationSigDispense QuantityRefillsLast FilledStart DateEnd DateStatus liothyronine [...] not crush, chew, or split. 60 tablet 6Active fentaNYL (Duragesic) 12 mcg/hr Place 1 patch on the skin every 3rd (third) day. Give with 25 mcg patchActive HYDROcodone-acetaminophen (Henderson) 5-325 mg tablet Take 2 tablets by mouth every 4 (four) hours if needed.Active methocarbamol (Robaxin) 750 mg tablet Take 750 mg by mouth three times daily.Active mirtazapine (Remeron) 45 mg tablet Take 45 mg by mouth at bedtime.Active acetaminophen (Tylenol) 325 mg tablet Indications:Partial bowel obstruction (CMS/HCC)Take 2 tablets (650 mg) by mouth every 6 (six) hours for 395 doses. 30 tablet /ctive mirtazapine (Remeron) 30 mg tablet Take 45 [...] if needed for opioid reversal. 1 mL Discontinued(Stop Taking at Discharge) colchicine 0.6 mg tablet Indications:Chest painTake 0.5 tablets (0.3 mg) by mouth every other day. Do not start before November 14, 2024. 8 tablet /07/2024Discontinued(Stop Taking at Discharge) cefpodoxime (Vantin) 200 mg tablet Take 1 tablet (200 mg) by mouth two times daily for 7 days. 14 tablet /Expired Additional Information Patient not taking.Reported on 12/06/2024 Active Problems ProblemNoted DateDiagnosed DatePartial bowel lfymsfahtso39/02/2025Obstructed internal htabnu6812/17/2024bnormal thyroid blood test12/05/2024llergic modrmprqaumqrr42/21/8235Accubibv36/21/2025 Overview (12/05/2024): Problem List clean-up per request of Phys. EHR Cmte Edema12/05/20244781Rjqpgovuqfbd35/21/3123Jjvqbqevyle18/21/2025Otitis media of left ear12/05/2024Postgastric surgery cihxqhlw51/21/9451Pauihqbfu23/21/2025 Overview (12/05/2024): Problem List clean-up per request of Phys. EHR Cmte Common bile duct oqzbijsyxy56/02/2025 Assessment & Plan (11/16/2024 2:13 AM EDT): CT chest/abd/pelvis noted CBD dilation and apperance of complex inflammatory changes. Patient has required multiple doses of opiates and antiemetics to control symptoms. Request to transfer to the [facility] where much of her advanced care has been provided with Specific concern that she may need ERCP/advanced endoscopy to further evaluation Pain management GI consult Disorder of endocrine ogyeiu3211/09/2024Lumbar /25/2025Migraine 11/09/2024Severe protein-calorie malnutrition (Baxter: less than 60% of standard weight)11/09/2024Pseudoaneurysm of right femoral kfrmec1811/09/2024 Assessment & Plan (11/12/2024 12:39 PM EDT): [...] pseudoaneurysm 11/02 -stable - follow Hgb Myocardial lugwcq7511/09/2024 Assessment & Plan (11/12/2024 12:39 PM EDT): [...] need to uptitrate verapamil if BP allows Tsrjftso47/18/2025Chest pain10/30/2024 Assessment & Plan (11/16/2024 2:13 AM [...] without complication, without long-term current use of mommniw2410/30/2024 Assessment & Plan (11/12/2024 12:39 PM EDT): - ISS - Blood glucose is well controlled on 11/12 without significant use of insulin Assessment & Plan (11/11/2024 10:32 AM EDT): - ISS - Blood glucose is well controlled on 11/11 without significant use of insulin Assessment & Plan (11/10/2024 4:18 PM EDT): - [facility] - Blood glucose is well controlled without [...] at home, will begin ISS, ACHS Primary sctlneeecfyz14/15/2025Other upgxdtwlgxemkv53/15/5384Frhyzr63/15/2025 Assessment & Plan (11/02/2024 1:29 PM EDT): [...] Stable, last BM yesterday Median arcuate ligament gifmsetk05/15/2025 Assessment & Plan (11/12/2024 12:39 PM EDT): [...] and then MALS release S/P laparoscopic sleeve rvsiduwehro41/15/2025 Assessment & Plan (11/12/2024 12:39 PM EDT): [...] 9:00 PM EDT): - Stable Protein calorie gxxqbqdatghn66/15/2025 Assessment & Plan (11/02/2024 1:29 PM EDT): [...] pain today patient brought urgently back to Regulator Tester Assessment & Plan (11/01/2024 11:57 AM EDT): [...] -Pending TTE, cath Spontaneous dissection of coronary llwkoh8910/30/2024 Assessment & Plan (11/12/2024 12:39 PM EDT): [...] pain today patient brought urgently back to Regulator Tester Feeding cymmltriusgu03/09/2025roken central line09/21/2024Long term (current) use of opiate ybutibvim04/07/2025Poor response to enteral pqqtcyhaz11/28/2025 Sepsis due to Fldpoeycqx27/04/2025 Assessment & Plan (08/19/2024 1:03 PM EDT): - source is likely the cellulitis around the J-tube status post J-tube removal. - CT scan from [facility] showing no abscess. - Infectious disease recommendations appreciated, continue with ceftriaxone. - Repeat blood cultures on 08/16: NGTD - central line in place, does not look like infected, continue monitoring, central line care. Assessment & Plan (08/18/2024 12:20 PM EDT): - source is likely the cellulitis around the J-tube status post J-tube removal. - CT scan from [facility] showing no abscess. - Infectious disease recommendations appreciated, continue with ceftriaxone. - Repeat blood cultures on 08/16: NGTD - central line in place, does not look like infected, continue monitoring, central line care. Sepsis due to Vkfemmobyire48/04/2025 Assessment & Plan (08/19/2024 1:03 PM EDT): - source is likely the cellulitis around the J-tube status post J-tube removal. - CT scan from [facility] showing no abscess. - Infectious disease recommendations appreciated, continue with ceftriaxone. - Repeat blood cultures on 08/16: NGTD - central line in place, does not look like infected, continue monitoring, central line care. Assessment & Plan (08/18/2024 12:20 PM EDT): - source is likely the cellulitis around the J-tube status post J-tube removal. - CT scan from [facility] showing no abscess. - Infectious disease recommendations appreciated, continue with ceftriaxone. - Repeat blood cultures on 08/16: NGTD - central line in place, does not look like infected, continue monitoring, central line care. Arrlzwcpooszr23/04/2025 Assessment & Plan (11/12/2024 12:39 PM EDT): [...] admission. - As needed antiemetics Chronic pain npevispe32/04/2025 Assessment & Plan (11/12/2024 12:39 PM EDT): [...] and scheduled tramadol. Continue with as needed Henderson. Assessment & Plan (08/18/2024 12:20 PM EDT): - continue with home meds including fentanyl patch and scheduled tramadol. Continue with as needed Henderson. 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 Assessment & Plan (08/18/2024 12:20 PM EDT): - status postresection. History of adrenal waxzgtevvxpqf82/04/2025 Assessment & Plan (11/12/2024 12:39 PM EDT): [...] PM EDT): - continue with dexamethasone Acquired nupxqfosqkvyhx58/04/2025 Assessment & Plan (11/16/2024 2:13 AM EDT): [...] 12:20 PM EDT): - continue with levothyroxine. Gjikieszquebsp78/03/2025 Assessment & Plan (11/12/2024 12:39 PM EDT): [...] well as other thyroid function testing Morbid reorrcw3708/17/2024 Assessment & Plan (08/19/2024 1:03 PM EDT): [...] daily DVT prophylaxis is VTE protocols per [facility] GI prophy Protonix Monitor labs) Obtain blood cultures Comments IV Vanco and cefepime Consult infectious diseases Early ambulation I discussed the plan of care with the patient and she is in agreement. Bmmvwsdwlj88/02/2025 Assessment & Plan (08/17/2024 1:27 AM EDT): -Unclear blood cultures - Commence patient on Vanco/cefepime - Monitor patient blood cultures - Also evaluate lab tests and correct abnormalities - Consult infectious disease - Obtain 2D echocardiogram History of laparoscopic tqmpyjygyhxchfc33/25/2025hronic, continuous use of msovzns2504/11/2024Starvation fjdesmufipel45/25/2025Intestinal xzjxswkwa95/07/2024 Screening for diabetes mellitus (DM)01/22/2024History of small bowel obstruction 01/21/2024Impaired intestinal qezemmintq50/18/1650Nygim42/25/2024urrent use of steroid yqdrtjtkab43/21/2024ommunity acquired pneumonia of left lower lobe of lung08/07/2023Idiopathic vgrbuyewtql51/21/2024spiration pneumonia of left lower lobe due to vomit08/04/2023Syncope and /19/2024Heart goiiqsf6106/29/2023 Acute renal failure superimposed on chronic kidney qgrtisi7906/29/2023Hypokalemia 06/29/2023ecreased oral bnwxpc3205/25/20231322Lmhlfauovlxeug40/19/2024nxiety and jjuitqonpq94/23/2023Feeding bdjjzio6112/07/2022Therapeutic drug monitoring 12/07/20228710Uoqmzhynjpn35/12/2023ilious vomiting with qndtof3510/28/2022Intractable vomiting with geqfwc8310/25/20226103Ryignb82/20/2023 Overview (11/09/2024): Takes Pro FE daily. Last Assessment & Plan: Assessment: iron infusions ~1 month ago Acute pain of right knee3Gall stone08/04/2022Internal derangement of right vclhzzzi88/20/2023Mixed incontinence urge and vwjgwl9808/04/2022Other specified noninflammatory disorders of vnjeal7408/04/2022atellofemoral pain syndrome of right knee08/04/2022Right flank pain08/04/2022Vaginal pain08/04/2022 Rash and nonspecific skin avygwcqd99/07/2023History of Isabel-en-Y gastric bypass 06/24/2022ipolar kfjhvkod14/07/2023astric wnlfrx5101/29/2022Iron deficiency lavawj9411/01/2021Ventral hernia without obstruction or aqdorjhv94/27/2022 Overview (12/05/2024): Last Assessment & Plan: Assessment: will have surgery Calculus of spxztk9103/10/2021bnormal finding on imaging of liver04/07/2020 Moderate recurrent major paaaaqkqtt80/18/2020Situational bfyjim4301/03/2020Panic disorder without wexijaagbly35/06/2020Trauma and stressor-related disorder 11/21/2019Duodenogastric reflux of bile11/16/20199599Bvjttm97/10/2020Preoperative vwehtdhrnmh91/10/2020Regurgitation of food09/25/2019Laryngopharyngeal reflux 10/07/2018Obstructive sleep apnea jtshnqof24/23/2019 Overview (12/05/2024): wears mask every night Obcpgwqfnsftai89/20/2019Reactive pcydfmokcpfw31/19/2019Chronic fatigue syndrome 09/19/2018Iron hwnqiwsbbb13/05/2019Vitamin D hbfwzaotvb70/05/2019Insomnia 09/15/2018Maltracking of right oflgoyi7006/27/2018Chondromalacia of patella, right 05/30/2018Arthritis of right knee05/30/201839 weeks gestation of 11/23/2016PCOS (polycystic ovarian syndrome)10/02/2013 Overview (11/09/2024): Last Assessment & Plan: Assessment: monitored per PCP Encounters DateTypeDepartmentCare NisiTgfkijhoktm34/03/2025 8:00 PM EST - 12/18/2024 9:45 PM ESTSurgery [facility] Main Operating Room [address] [place] [address] Donnie Cesar MD DIAGNOSTIC LAPAROSCOPY [[id number] (CPT??)]12/18/2024 7:08 PM ESTAnesthesia Event [facility] Main Operating Room [address] [place] [address] Josue Walters MD Smay, Kyle, CAA 12/17/2024 10:07 AM EST - 12/21/2024 2:02 PM ESTHospital Encounter [facility] 6AB Ortho Surgery [address] [place] [address] Anne Marie Scott MD Partial bowel obstruction (CMS/HCC) (Primary Dx); Partial intestinal obstruction, unspecified cause (CMS/HCC); Obstructed internal hernia; Anemia due to acute blood loss Discharge Disposition: Home-Health Care [facility] ()12/17/20246187Lnnurl90/30/2025 9:18 AM EDTAnesthesia Event [facility] [address] [place] [phone] Sergei Randall MD Arnaut, Daniel, MD 12/14/2024 7:17 AM EDT - 12/14/2024 9:35 AM EDTHospital Encounter [facility] Surgery [facility] [address] [place] [phone] Braxton Bellamy MD Jackson, Jennifer, CAA Bhatt, Shashi B., MD Common bile duct dilatation; Chronic narcotic use Discharge Disposition: Home or Self Care ()12/14/20241313Afkpzo08/24/2025Telephone [facility] [address] [place] [address] Muna Michael RN 12/06/2024 11:[address] [facility] [address] [facility] [place] [address] Wali Collins MD Spontaneous dissection of coronary artery (Primary Dx); Other fatigue; Precordial pain; Anemia due to acute blood loss12/06/2024Orders Only [facility] [address] [facility] [place] [address] Maryuri Downnig MA Anemia, unspecified type (Primary Dx)12/05/2024Orders Only [facility] [address] [facility] [place] [address] Siri Dotson MD 12/04/20243622Nissyi70/17/2025Orders Only [facility] [address] [place] [address] Muna Michael, DEE Common bile duct dilation (Primary Dx)11/26/2024 7:34 PM EDT - 11/26/2024 9:45 PM EDTEmergency [facility] Emergency [address] [place] [address] Israel Jeong MD Acute UTI (Primary Dx) Discharge Disposition: Home or Self Care ()11/26/20247982Zpryuc40/01/2025 7:56 PM EDT - 11/17/2024 2:42 PM EDTHospital Encounter [facility] [address] [place] [address] Sandeep Casey MD Chest pain (Primary Dx) Discharge Disposition: Home-Health Care Svc ()11/15/20241362Kpgbun72/25/2025 10:47 AM EDT - 11/13/2024 2:34 PM EDTHospital Encounter [facility] [address] [place] [phone] Urbano Santos MD Chang, Kyu Chul, MD Schwarz, Stephanie, DO Chest pain (Primary Dx); Chronic narcotic use Discharge Disposition: Home-Health Care c (06)11/09/20245948Fnjjhb49/18/2025 8:45 PM EDTAnesthesia Event [facility] Main Operating Room [address] [facility] [place] [address] David Reyes MD 11/02/2024 8:45 PM EDT - 11/02/2024 11:15 PM EDTSurgery [facility] Main Operating Room [address] [facility] [place] [place] [address] Jose Angel Fox MD EXPLORATION, HEMATOMA Right Groin11/02/2024 5:41 PM EDT - 11/02/2024 6:41 PM EDT Surgery [facility] Heart [facility] [address] [facility] [place] [address] Wali Collins MD Coronary wnqlybhngce95/17/2025 12:30 PM EDT - 11/01/2024 1:30 PM EDTSurgery [facility] [address] [facility] [place] [address] Mitchell Agustin MD Coronary rldaldoncam36/16/2025 1:30 PM EDT - 10/31/2024 2:30 PM EDTSurgery [facility] [address] [facility] [place] [address] Tino Gilmore MD Coronary maznqeitxie41/15/2025 6:28 PM EDT - 11/07/2024 5:10 PM EDTHospital Encounter [facility] [address] [place] [phone] Sandeep Casey MD [place], Caleb T, MD Vicente, David, MD Mansur, Sarmed, MD Moukarbel, George, MD Hematoma (Primary Dx); Chest pain; NSTEMI (non-ST elevated myocardial infarction) (CMS/HCC); Spontaneous dissection of coronary artery; Gastroparesis; Gastroesophageal reflux disease without esophagitis Discharge Disposition: Home-Health Care [facility] (06)10/30/2024Travelfrom Last 3 Months Family History Medical HistoryRelationNameCommentsNo Known ProblemsFatherNo Known Problems MotherRelationNameStatusCommentsFatherAliveMotherAlive Social History Tobacco UseTypesPacks/DayYears UsedDateSmoking Tobacco: NeverSmokeless Tobacco: Never Tobacco Cessation:Counseling Given: Not Answered Alcohol UseStandard Drinks/WeekCommentsNot Currently0 (1 standard drink = 0.6 oz pure alcohol)[facility] UtilitiesAnswerDate RecordedIn the past 12 months has the [employer], gas, oil, or water [employer] threatened to shut off services in your [...] in a [place] (including now)?No12/17/2024Hunger Vital SignAnswerDate RecordedWithin the past 12 months, you worried that your food would run out before you got the money to buymore.Never true12/17/2024Ran Out of Food in the Last YearNot on file 12/17/2024CommentsNoSex and Gender InformationValueDate RecordedSex Assigned at BvegbZkzqqz17/03/2025 3:45 PM EDTLegal HlwIoudxv80/30/2022 12:07 AM EDTGender YgoroicoFjlvxw60/03/2025 3:45 PM EDTSexual OrientationHeterosexual or Jevbgjvd13/03/2025 3:45 PM EDT Last Filed Vital Signs Vital SignReadingTime TakenCommentsBlood Qgtnpoaw774/5712/21/2024 7:43 AM EST Slonw241012/21/2024 7:43 AM AVIJezynzlzkmr29.2 ??C (97.2 ??F)12/21/2024 3:01 AM ESTRespiratory Spqy928002/21/2024 7:43 AM ESTOxygen Wwksikxmet94%12/21/2024 7:43 AM ESTInhaled Oxygen Concentration--Qkeswq37.5 kg (177 lb 7.5 oz)12/21/2024 3:01 AM KSLZrvaee784.6 cm (5' 6 )12/17/2024 10:09 AM ESTBody Mass Index28.64 12/17/2024 10:09 AM EST Plan of Treatment DateTypeDepartmentCare Team (Latest Contact Info)Jsirtwdlqqh53/13/2025 3:00 PM ESTOffice Visit [facility] Surgery Clinic [address] [place] [address] Donnie Cesar MD [address], [place] [phone] 01/31/2025 11:[address] [address] [place] [address] Wali Collins MD [address] [place] [address] Health MaintenanceDue DateLast DoneCommentsDiabetes: Retinopathy Screening 1999Depression Mrswvgbrh55/17/2002Varicella Vaccines (1 of 2 - 13+ 2-dose series)2002Diabetes: Urine Protein Kwduezeps98/17/2009Hepatitis B Vaccines (1 of 3 - 19+ 3-dose series)2008Pneumococcal Vaccine: Pediatrics (0 to 5 Years) and At-Risk Patients (6 to 64 Years) (1 of 2 - PCV)2008Zoster Vaccines (1 of 2)2008HPV Vaccines (1 - Risk 3-dose SCDM series)2016 HPV/Jwylsq5604/03/2019Cervical Cancer Qwgzhsrre36/06/2024Pap Smear05/22/2023 05/21/2020OVID-19 Vaccine ( - season)/05/2021, 06/23/2020 Influenza Vaccine (#1)509/, 11/16/2021, 01/01/2021, [...] to complete this topic Procedures Procedure NamePriorityDate/TimeAssociated DiagnosisCommentsPOCT GLUCOSE METER UNSOLICITED RWGTLFEIjepjag25/06/2025 11:46 AM EST POCT GLUCOSE METER UNSOLICITED IPNXXQWCukueco66/06/2025 5:59 AM EST GZOQyqqscw14/06/2025 5:11 AM EST BASIC METABOLIC AGTSOVcxakof24/06/2025 5:11 AM EST POCT GLUCOSE METER UNSOLICITED GGRWLFLUduoetb53/05/2025 11:27 PM EST POCT GLUCOSE METER UNSOLICITED ECMPHSZCkuqrno02/05/2025 5:[address] ABDOMEN PELVIS W IV RZVMNWXXNORR97/05/2025 2:14 PM EST ECG 12-NHNLLFGU63/05/2025 12:22 PM EST POCT GLUCOSE METER UNSOLICITED WLZNMIPVdaoqwh35/05/2025 11:44 AM EST XR ABDOMEN 1 CLCARVWZ76/05/2025 10:26 AM EST LACTIC ACID WITH 4 HOUR TSWOUVAHNG44/05/2025 10:20 AM EST OGBQNOS0812/20/2024 10:20 AM EST IRON AND ERHLRunzwdh52/05/2025 6:29 AM EST Anemia due to acute blood loss PHOSPHORUSAdd-On12/20/2024 6:29 AM EST VFFKsvbovy12/05/2025 6:29 AM EST BASIC METABOLIC LNHULGixcwjs56/05/2025 6:29 AM EST POCT GLUCOSE METER UNSOLICITED WCPAACWXsknktw77/05/2025 6:17 AM EST POCT GLUCOSE METER UNSOLICITED HWLANSCZkzjnkq84/05/2025 12:05 AM EST POCT GLUCOSE METER UNSOLICITED RIBKFRNRstybil99/04/2025 5:57 PM EST FL SMALL BOWEL LVEFNJQGMO77/04/2025 1:15 PM EST POCT GLUCOSE METER UNSOLICITED KPGQDEEYajyijj45/04/2025 11:09 AM EST PHOSPHORUSAdd-On12/19/2024 7:49 AM EST MAGNESIUMAdd-On12/19/2024 7:49 AM EST HBOCrrmqfe77/04/2025 7:49 AM EST BASIC METABOLIC MRXASFksbcum75/04/2025 7:49 AM EST POCT GLUCOSE METER UNSOLICITED UWAEHBDXdggega64/04/2025 6:34 AM EST POCT GLUCOSE METER UNSOLICITED WFQVZVUFkgnxqh16/04/2025 12:06 AM EST CA AN ELECTIVE ENDOTRACHEAL CRFXOBJhvwccx73/03/2025 7:16 PM EST REPAIR, HERNIA, DBTGYZKWGIUF60/03/2025 7:08 PM EST Obstructed internal hernia LYSIS, IKTRUGUDB58/03/2025 7:08 PM EST Obstructed internal hernia CA LAPS ABD PRTM&OMENTUM DX W/WO SPEC BR/WA SPX102/18/2024 7:08 PM EST Obstructed internal hernia POCT GLUCOSE METER UNSOLICITED LKYTGCZGbmbicw13/03/2025 5:47 PM EST XR TRANSFER OF OUTSIDE QSZRUHkupwio02/03/2025 1:10 PM EST XR TRANSFER OF OUTSIDE ALEBFEgvicic98/03/2025 1:10 PM EST XR TRANSFER OF OUTSIDE PFKBFWfnimqc11/03/2025 1:10 PM EST XR TRANSFER OF OUTSIDE GAPMYTprlvka68/03/2025 1:[address] TRANSFER OF OUTSIDE IHHCWZyqpxhv72/03/2025 1:[address] TRANSFER OF OUTSIDE GXFFATrshilq92/03/2025 1:[address] TRANSFER OF OUTSIDE DSVZYQnvgyyl43/03/2025 1:[address] TRANSFER OF OUTSIDE QXWJIXyqzofv46/03/2025 1:[address] TRANSFER OF OUTSIDE BMUPJOlxdieg73/03/2025 1:10 PM EST COMPREHENSIVE METABOLIC NTHOWXgpejjy29/02/2025 1:05 PM EST MSVLdurmrm12/02/2025 1:05 PM EST XR CHEST 1 NUXOCbrjiff04/02/2025 12:58 PM EST EUS (UPPER) W/ LGSKjrvqah02/30/2025 9:59 AM EDT Common bile duct dilatation HISTOLOGY - TISSUE JMBIPpxavdn58/30/2025 9:49 AM EDT Common bile duct dilatation CA AN ELECTIVE ENDOTRACHEAL KJGQKLViliynf83/30/2025 9:25 AM EDT POCT GLUCOSE METER UNSOLICITED MBZFJRNDncvrmv73/30/2025 7:47 AM EDT HEPATIC FUNCTION IFFCSWnjbdpn90/30/2025 7:40 AM EDT URINALYSIS MICROSCOPIC WITH REFLEX VPAJBPHAAAV19/12/2025 8:27 PM EDT SERUM OFNWFESCYSMUNWR30/12/2025 8:27 PM EDT URINALYSIS WITH REFLEX EAGPXOSHMRS52/12/2025 8:27 PM EDT XR CHEST 1 FQTECQAC30/12/2025 8:17 PM EDT ECG 12-FYTUOWQD51/12/2025 8:13 PM EDT CBC WITH AUTO LRMGLRMGOFYKSYRY18/12/2025 8:05 PM EDT HIGH SENSITIVITY TROPONIN ISTAT1 8:05 PM EDT JXRCHSXWAF16/12/2025 8:05 PM EDT COMPREHENSIVE METABOLIC EYKAIISJK87/12/2025 8:05 PM EDT CBC AND SKEHVFXCKAXWWCUX90/12/2025 8:05 PM EDT HEPATIC FUNCTION PANELAdd-On11/17/2024 5:17 AM EDT MAGNESIUMPending Ikpsuqrnx06/03/2025 5:17 AM EDT CBCPending Qdrzawhgc71/03/2025 5:17 AM EDT BASIC METABOLIC PANELPending Ujljfvvhz45/03/2025 5:17 AM EDT MR ABDOMEN WO CONTRAST VCAMYKXC06/02/2025 8:32 PM EDT ECG 12-OSAHWymyasd37/02/2025 9:55 AM EDT HEPATIC FUNCTION PANELSTAT Add-on11/16/2024 5:36 AM EDT HIGH SENSITIVITY TROPONIN IAdd-On11/16/2024 5:36 AM EDT HWKZtromwo50/02/2025 5:36 AM EDT BASIC METABOLIC IYADUGluwbvd74/02/2025 5:36 AM EDT XR CHEST 1 KAVHMjhypxp30/29/2025 12:51 PM EDT POCT GLUCOSE METER UNSOLICITED CUEENDCFliwaoi28/29/2025 11:08 AM EDT HOME O2 EVAL (DESATURATION SCREEN)Sgrdrbx5011/13/2024 10:32 AM EDTHIGH SENSITIVITY TROPONIN IPending Auqirwtkl19/29/2025 7:03 AM EDT BASIC METABOLIC PANELPending Hctnnksuu87/29/2025 7:03 AM EDT CBCPending Slfefndtb91/29/2025 7:03 AM EDT POCT GLUCOSE METER UNSOLICITED HYMRVQKLxkwiks35/29/2025 7:01 AM EDT HIGH SENSITIVITY TROPONIN IPending Jmgckiugn44/29/2025 12:17 AM EDT POCT GLUCOSE METER UNSOLICITED ABIPBEXIqvqgkp95/29/2025 12:16 AM EDT HIGH SENSITIVITY TROPONIN IPending Kucjfjycn20/28/2025 6:28 PM EDT POCT GLUCOSE METER UNSOLICITED JDVISKUZmafjcb05/28/2025 6:18 PM EDT ECG 12-IKZKUlgscbu68/28/2025 1:41 PM EDT HIGH SENSITIVITY TROPONIN ISTAT11/12/2024 1:34 PM EDT HIGH SENSITIVITY TROPONIN IPending Hxjzvutay34/28/2025 10:56 AM EDT POCT GLUCOSE METER UNSOLICITED SOETBFUWfuupvd86/28/2025 10:55 AM EDT HIGH SENSITIVITY TROPONIN IPending Pkhsvhmoz53/28/2025 6:30 AM EDT BASIC METABOLIC PANELPending Fenvbnswq91/28/2025 6:30 AM EDT CBCPending Jgshiibqs04/28/2025 6:30 AM EDT POCT GLUCOSE METER UNSOLICITED OQKXLUXHtdvgyf89/28/2025 6:27 AM EDT HIGH SENSITIVITY TROPONIN IPending Ffvwkryzk85/28/2025 12:00 AM EDT POCT GLUCOSE METER UNSOLICITED NDWYXNPMoakajo60/27/2025 11:56 PM EDT CTA CHEST W IV ZNKCNVHZCNBL93/27/2025 8:55 PM EDT ECG 12-GMAJKHZG94/27/2025 6:15 PM EDT HIGH SENSITIVITY TROPONIN IPending Mzdmaqjqo68/27/2025 6:14 PM EDT POCT GLUCOSE METER UNSOLICITED EGMATKDUwonrmo44/27/2025 5:16 PM EDT C-REACTIVE PROTEINPending Ekxcbpwji23/27/2025 3:29 PM EDT POCT GLUCOSE METER UNSOLICITED HPTQPVKEaieuak29/27/2025 12:49 PM EDT SEDIMENTATION RATEAdd-On11/11/2024 6:39 AM EDT BASIC METABOLIC PANELPending Catpibplj03/27/2025 6:39 AM EDT CBCPending Fttogqcwn71/27/2025 6:39 AM EDT POCT GLUCOSE METER UNSOLICITED QZHQJLPEwofzzr84/27/2025 6:35 AM EDT POCT GLUCOSE METER UNSOLICITED JHVLZVEGzjrkft58/27/2025 12:55 AM EDT HIGH SENSITIVITY TROPONIN IPending Atnnduikz80/26/2025 8:50 PM EDT POCT GLUCOSE METER UNSOLICITED BZHZZQHGhfdjaq83/26/2025 6:24 PM EDT ECG 12-KBBDTZHR57/26/2025 3:11 PM EDT HIGH SENSITIVITY TROPONIN IPending Ifpfixnfy36/26/2025 2:22 PM EDT POCT GLUCOSE METER UNSOLICITED COGMUNVYwpiaro52/26/2025 1:06 PM EDT LEXISCAN STRESS MYOCARDIAL PERFUSION JKKQEAVDypfdjf71/26/2025 11:23 AM EDT XR CHEST 1 OJMPWhgdnfb50/26/2025 9:01 AM EDT ECG 12-FZWMSdvomle26/26/2025 8:09 AM EDT HIGH SENSITIVITY TROPONIN ISTAT11/10/2024 7:44 AM EDT POCT GLUCOSE METER UNSOLICITED KMVETNBYcllyal97/26/2025 7:39 AM EDT POCT GLUCOSE METER UNSOLICITED ZUBRAIKWfmtxji55/25/2025 9:21 PM EDT POCT GLUCOSE METER UNSOLICITED HJQZOAKUwyhvcl35/25/2025 4:12 PM EDT CBC WITH AUTO BDMROEDLNUIQOlhfdvh17/25/2025 2:09 PM EDT KBMYVGLTRBlvnlsd78/25/2025 2:09 PM EDT CBC AND UDQDICWPINVINitznjr83/25/2025 2:09 PM EDT BASIC METABOLIC SXYAFGowwjzb01/25/2025 2:09 PM EDT HIGH SENSITIVITY TROPONIN MTghfole69/25/2025 2:09 PM EDT ECG 12-DHLQAqvfooc22/25/2025 12:39 PM EDT POCT GLUCOSE METER UNSOLICITED OUNDSJUTzuhygq28/23/2025 4:00 PM EDT POCT GLUCOSE METER UNSOLICITED DLICDEEGuemsjg30/23/2025 11:55 AM EDT ECG 12-NPIVClekrls96/23/2025 11:48 AM EDT POCT GLUCOSE METER UNSOLICITED DOZZEJSKnhkomv15/23/2025 7:43 AM EDT LTNWCOR2511/07/2024 6:27 AM EDT HIGH SENSITIVITY TROPONIN ISTAT Add-on11/07/2024 4:50 AM EDT CALCIUM, YJUZVLECdsbizw79/23/2025 4:50 AM EDT YNAEEBDDAGBoiiccn76/23/2025 4:50 AM EDT VKJWIPYGZYbpjmqg70/23/2025 4:50 AM EDT BASIC METABOLIC SDDQZJylqfrp08/23/2025 4:50 AM EDT POCT GLUCOSE METER UNSOLICITED HIVWWLCUzfmqff98/22/2025 10:59 PM EDT POCT GLUCOSE METER UNSOLICITED AGECETTOwbwfhv11/22/2025 8:22 PM EDT POCT GLUCOSE METER UNSOLICITED HIIKPVLVhregld50/22/2025 5:05 PM EDT CALCIUM, IONIZEDPending Jxeyymwpo15/22/2025 12:24 PM EDT POCT GLUCOSE METER UNSOLICITED KIYSDXUQeunxls24/22/2025 12:19 PM EDT VASC US LOWER EXTREMITY PSEUDOANEURYSM DUPLEX UOXHZAdvyqra33/22/2025 8:24 AM EDT POCT GLUCOSE METER UNSOLICITED RHJFZSDGhnlgxx12/22/2025 7:52 AM EDT CBC WITH AUTO DIFFERENTIALPending Jwymodktj39/22/2025 5:50 AM EDT CBC AND WGWGYTRMWLQNSfhrytj53/22/2025 5:50 AM EDT PHOSPHORUSPending Vcbprimie71/22/2025 5:50 AM EDT MAGNESIUMPending Yxqqillxw84/22/2025 5:50 AM EDT BASIC METABOLIC PANELPending Fayhxtmtx12/22/2025 5:50 AM EDT POCT GLUCOSE METER UNSOLICITED JAAUBJFKsunlqz31/21/2025 10:07 PM EDT POCT GLUCOSE METER UNSOLICITED ZBKWBZEPzqdjso12/21/2025 4:37 PM EDT POCT GLUCOSE METER UNSOLICITED XIEPQYMHjfgbzr45/21/2025 11:36 AM EDT HEMOGLOBIN AND HEMATOCRIT, BLOODPending Ykqjjjfco37/21/2025 9:01 AM EDT POCT GLUCOSE METER UNSOLICITED DFBIMNNJdvjsrh43/21/2025 8:36 AM EDT CBCPending Nghohburs71/21/2025 3:48 AM EDT PHOSPHORUSPending Zrssqewsq26/21/2025 3:48 AM EDT MAGNESIUMPending Tvfkdbsff30/21/2025 3:48 AM EDT BASIC METABOLIC PANELPending Mbdqfquvq82/21/2025 3:48 AM EDT CALCIUM, IONIZEDPending Tpjbynisa15/21/2025 1:00 AM EDT HEMOGLOBIN AND HEMATOCRIT, BLOODPending Tavjtejim30/21/2025 12:54 AM EDT POCT GLUCOSE METER UNSOLICITED BINPCFGCnmiilg84/20/2025 10:33 PM EDT BASIC METABOLIC PANELSTAT Add-on11/04/2024 8:17 PM EDT HEMOGLOBIN AND HEMATOCRIT, BLOODPending Gejedcopc62/20/2025 8:13 PM EDT POCT GLUCOSE METER UNSOLICITED BKQYLIBZhphiyp19/20/2025 5:12 PM EDT TRANSFUSE RED BLOOD LLUQHByaalxf78/20/2025 2:34 PM EDTECG 12-NHOUVTLS93/20/2025 1:59 PM EDT HEMOGLOBIN AND HEMATOCRIT, BLOODPending Nexxktrjl02/20/2025 1:38 PM EDT BASIC METABOLIC IKGYCPOXM74/20/2025 1:38 PM EDT HIGH SENSITIVITY TROPONIN ISTAT11/04/2024 1:38 PM EDT POCT GLUCOSE METER UNSOLICITED JQYVPNPWcwhovu58/20/2025 1:06 PM EDT CTA ABDOMEN PELVIS W IV YMWZPJXUJrzkmgm94/20/2025 12:48 PM EDT POCT GLUCOSE METER UNSOLICITED NGEUDRTTzdjknp01/20/2025 9:20 AM EDT POCT GLUCOSE METER UNSOLICITED DOOIRDENoqqnwc66/20/2025 5:10 AM EDT CBCPending Exhrsadxj48/20/2025 5:05 AM EDT CALCIUM, IONIZEDPending Dmttpwmwm35/20/2025 5:05 AM EDT PHOSPHORUSPending Rnpiynioo89/20/2025 5:05 AM EDT MAGNESIUMPending Hofbdpqyq90/20/2025 5:05 AM EDT BASIC METABOLIC PANELPending Pujwhdjuy14/20/2025 5:05 AM EDT POCT GLUCOSE METER UNSOLICITED IWELQHIPqcxhsq09/20/2025 12:12 AM EDT HEMOGLOBIN AND HEMATOCRIT, BLOODPending Fvrolgwsq50/20/2025 12:09 AM EDT POCT GLUCOSE METER UNSOLICITED UKPYMPVZiqaaiy70/19/2025 9:52 PM EDT HEMOGLOBIN AND HEMATOCRIT, BLOODPending Krckvizqf26/19/2025 6:34 PM EDT POCT GLUCOSE METER UNSOLICITED LAYFYZXRsntanq97/19/2025 5:35 PM EDT CBCPending Qbfmbkdcm19/19/2025 1:23 PM EDT POCT GLUCOSE METER UNSOLICITED DYPYOVXIcbvuym92/19/2025 11:35 AM EDT POCT GLUCOSE METER UNSOLICITED NKXTUBUIgdorws27/19/2025 7:46 AM EDT CBCPending Agojbsrhe09/19/2025 4:46 AM EDT CALCIUM, IONIZEDPending Xmpcenfnt49/19/2025 4:46 AM EDT PHOSPHORUSPending Digfhijlp66/19/2025 4:46 AM EDT MAGNESIUMPending Muoodsrle35/19/2025 4:46 AM EDT BASIC METABOLIC PANELPending Sxmaxhzlk14/19/2025 4:46 AM EDT INTEM PMkrkitt33/19/2025 1:58 AM EDT HEPTEM LVgumqwg60/19/2025 1:58 AM EDT EXTEM XYlfvbht22/19/2025 1:58 AM EDT FIBTEM ECqekjpk90/19/2025 1:58 AM EDT GTNCLGZ5111/03/2024 12:07 AM EDT UYEPCDHDRRYYBT60/19/2025 12:07 AM EDT JZNRYNISHQTEQ09/19/2025 12:07 AM EDT BASIC METABOLIC VKVXKJTWU74/19/2025 12:07 AM EDT XXNHMYVRSUKHRE91/19/2025 12:07 AM EDT PROTIME-CMUOXMG8411/03/2024 12:07 AM EDT POCT GLUCOSE METER UNSOLICITED KSDVRENIzxvzqt40/18/2025 10:48 PM EDT TRANSFUSE RED BLOOD LFXXQHktzang40/18/2025 9:30 PM EDTTRANSFUSE RED BLOOD CELLS Keguuhj5011/02/2024 9:10 PM EDTPR AN ELECTIVE ENDOTRACHEAL BXSUQYCudggsa00/18/2025 8:56 PM EDT REPAIR, YPGXHTSLVQWYWG58/18/2025 8:44 PM EDT Hematoma Right Groin EXPLORATION, FREFQQYS55/18/2025 8:44 PM EDT Hematoma Right Groin POCT GLUCOSE METER UNSOLICITED QCVNYIMBszhiln39/18/2025 8:30 PM EDT PREPARE JBVQlqvzkp96/18/2025 8:05 PM EDT PREPARE IJOVbwwhkt51/18/2025 8:05 PM EDT TYPE AND SCREENPending Gwbngplgz29/18/2025 8:02 PM EDT CBCPending Swhbifgdp72/ 8:02 PM EDT RED GCZYokumeg05/18/2025 8:00 PM EDT EXTRA PFQJHCjctcpj98/18/2025 8:00 PM EDT ACTIVATED CLOTTING XXXWYuvirfe31/18/2025 4:43 PM EDT POCT ACTIVATED CLOTTING JJECBfgxsip74/18/2025 4:40 PM EDT POCT ACTIVATED CLOTTING ROYLEjhdavh77/18/2025 4:19 PM EDT ACTIVATED CLOTTING GBBFSsfzrlj32/18/2025 4:13 PM EDT ACTIVATED CLOTTING BGKLByndjix43/18/2025 2:56 PM EDT INSTANT WAVE FREE RATIO (IFR)Mcpilpq6811/02/2024 2:53 PM EDT Spontaneous dissection of coronary artery ULTRASOUND - MSKIMWTEXgkjifh72/18/2025 2:53 PM EDT Spontaneous dissection of coronary artery CORONARY UWYXRSBDWPBBwpuepr97/18/2025 2:53 PM EDT Spontaneous dissection of coronary artery ACTIVATED CLOTTING CCUZUldtlwb44/18/2025 2:24 PM EDT ECG 12-LULNGKCW02/18/2025 1:18 PM EDT HIGH SENSITIVITY TROPONIN ISTAT11/02/2024 1:01 PM EDT POCT GLUCOSE METER UNSOLICITED GICUCQQNjaulqf00/18/2025 11:07 AM EDT POCT GLUCOSE METER UNSOLICITED ZRUYJOAHfbioio75/18/2025 7:31 AM EDT LIGHT GREEN MGXGamlmay47/18/2025 6:15 AM EDT EXTRA VSCAGJhnfjiw95/18/2025 6:15 AM EDT CBCPending Ebshpaqga85/18/2025 6:15 AM EDT POCT GLUCOSE METER UNSOLICITED GGGBPQFMtkrbcz02/17/2025 8:42 PM EDT POCT GLUCOSE METER UNSOLICITED BILAJRWUwcctqk43/17/2025 6:04 PM EDT ACTIVATED CLOTTING NEYXXiganhv96/17/2025 4:36 PM EDT POCT ACTIVATED CLOTTING GTDTPxvduvf91/17/2025 4:33 PM EDT ULTRASOUND - EGFXIOKYUrrmfho48/17/2025 1:30 PM EDT NSTEMI (non-ST elevated myocardial infarction) (CMS/HCC) CORONARY WVSVODVHTENQidbwnd20/17/2025 1:30 PM EDT NSTEMI (non-ST elevated myocardial infarction) (CMS/HCC) ACTIVATED CLOTTING EBIPFgcoque73/17/2025 1:27 PM EDT ACTIVATED CLOTTING QDMPLqlqutn98/17/2025 1:14 PM EDT ECG 12-TFKZBpqyazu64/17/2025 12:09 PM EDT POCT GLUCOSE METER UNSOLICITED JQIFENVWypwixu88/17/2025 11:30 AM EDT BASIC METABOLIC PANELPending Muntzcbdg26/17/2025 10:10 AM EDT QUGUEQP0811/01/2024 10:10 AM EDT POCT GLUCOSE METER UNSOLICITED CVHGBTDJcsqojr11/17/2025 7:43 AM EDT HIGH SENSITIVITY TROPONIN EPhhap2111/01/2024 6:42 AM EDT ANTI-FACTOR XAPending Flibrwmmc82/17/2025 6:04 AM EDT POCT GLUCOSE METER UNSOLICITED NRYYNCEQyzbgra17/17/2025 6:02 AM EDT TOXICOLOGY PANEL QVPVVMntgxnv46/17/2025 2:12 AM EDT POCT GLUCOSE METER UNSOLICITED CBAVTYBCihxfgx43/16/2025 8:20 PM EDT LEFT HEART NULJPytwakh55/16/2025 7:34 PM EDT NSTEMI (non-ST elevated myocardial infarction) (CMS/HCC) CORONARY TUIAOTFQPHFHgdkflz33/16/2025 7:34 PM EDT NSTEMI (non-ST elevated myocardial infarction) (CMS/HCC) POCT GLUCOSE METER UNSOLICITED TDSBBWVNbpkljs18/16/2025 11:55 AM EDT LIMITED ECHO (TTE) W/ COLOR FLOW AND IMAGING CNGOASpptlqx69/16/2025 11:40 AM EDT ECG 12-RNSIDcatlzc07/16/2025 8:47 AM EDT ECG 12-IWYAKjahkdl63/16/2025 8:25 AM EDT POCT GLUCOSE METER UNSOLICITED VGKMQMVTkpzhto68/16/2025 7:22 AM EDT HEMOGLOBIN B2NEwm-Cy40/16/2025 6:27 AM EDT LIPID PANELAdd-On10/31/2024 6:27 AM EDT MAGNESIUMAdd-On10/31/2024 6:27 AM EDT ANTI-FACTOR TBPasjyms65/16/2025 6:27 AM EDT TJCJlmlgqr16/16/2025 6:27 AM EDT BASIC METABOLIC AFGSEDalfsbl87/16/2025 6:27 AM EDT HIGH SENSITIVITY TROPONIN HTcvtb6110/31/2024 6:27 AM EDT ANTI-FACTOR ISLvrsgxt50/16/2025 1:38 AM EDT HIGH SENSITIVITY TROPONIN WSzbkb6810/31/2024 1:38 AM EDT POCT GLUCOSE METER UNSOLICITED MJMPGAGJqwnsql93/15/2025 9:12 PM EDT ECG 12-EHXMUKKC52/15/2025 8:00 PM EDT ANTI-FACTOR XASTAT Add-on10/30/2024 7:11 PM EDT VWIJLLJE66/15/2025 7:11 PM EDT TSH3 REFLEX TO SH4SIVZ9310/30/2024 7:11 PM EDT CBC WITH AUTO AILSIDXYFFJHTORZ42/15/2025 7:11 PM EDT B-TYPE NATRIURETIC EBZVPPBGJPR20/15/2025 7:11 PM EDT CBC AND YGPYHIMJFQQSDKBH26/15/2025 7:11 PM EDT PROTIME-MTOGMXM2410/30/2024 7:11 PM EDT KRLRXCFESQXJLA16/15/2025 7:11 PM EDT HIGH SENSITIVITY TROPONIN ISTAT10/30/2024 7:11 PM EDT BWDOBQNOVUMFH15/15/2025 7:11 PM EDT COMPREHENSIVE METABOLIC FVUIPUHWZ18/15/2025 7:11 PM EDT from Last 3 Months Results * POCT glucose meter (12/21/2024 11:46 AM EST) Only the most recent of64 resultswithin the time period is included. ComponentValueRef RangeTest MethodAnalysis TimePerformed AtPathologist Signature Glucose QDC57994 - 105 mg/dL12/21/2024 12:16 PM [facility] ([facility]) Comment:elacumskySpecimen (Source)Anatomical Location / LateralityCollection Method / VolumeCollection TimeReceived TimeBloodCapillary blood specimen / Wfglxab7712/21/2024 11:46 AM EST12/21/2024 12:16 PM EST Narrative [facility] ([facility]) - 12/21/2024 12:16 PM EST Waived Testing in the ED is performed under the ED CLIA certificate #[id number]. Authorizing ProviderResult TypeResult StatusMallory Tyler KYCECY BLOOD ORDERABLESFinal ResultPerforming OrganizationAddressCity/State/ZIP CodePhone Number [facility] ([facility]) [address] [place] [address] * (ABNORMAL) CBC (12/21/2024 5:11 AM EST) Only the most recent of20 resultswithin the time period is included. ComponentValueRef RangeTest MethodAnalysis TimePerformed AtPathologist Signature Auto WBC2.92(L)4.00 - 10.60 10*3/uL12/21/2024 5:49 AM [facility] ([facility])RBC3.19(L)3.80 - 5.00 10*6/uL12/21/2024 5:49 AM [facility] ([facility])Hemoglobin9.5(L)12.0 - 15.0 g/dL12/21/2024 5:49 AM [facility] ([facility])Yzxfljeolx82.7(L)36.0 - 45.0 %12/21/2024 5:49 AM [facility] ([facility])MCV90.082.0 - 98.0 fL12/21/2024 5:49 AM [facility] ([facility])MCH 29.827.0 - 33.0 pg12/21/2024 5:49 AM [facility] ([facility])MCHC33.132.0 - 35.0 g/dL12/21/2024 5:49 AM [facility] ([facility])RDW15.5(H)11.5 - 15.0 % 12/21/2024 5:49 AM [facility] ([facility])Fdxuggqwg216079 - 400 10*3/uL 12/21/2024 5:49 AM [facility] ([facility])Specimen (Source)Anatomical Location / LateralityCollection Method / VolumeCollection TimeReceived TimeBlood Venous blood specimen / UnknownExisting Catheter / Ndasbee7912/21/2024 5:11 AM EST 12/21/2024 5:34 AM EST Narrative Authorizing ProviderResult TypeResult StatusDalun Nile ROBLERO BLOOD ORDERABLES Final ResultPerforming OrganizationAddressCity/State/ZIP CodePhone Number [facility] ([facility]) [address] [place] [address] * (ABNORMAL) Basic metabolic panel (12/21/2024 5:11 AM EST) Only the most recent of19 resultswithin the time period is included. ComponentValueRef RangeTest MethodAnalysis TimePerformed AtPathologist Signature Nvuefb224665 - 145 mmol/L102/21/2024 6:20 AM [facility] ([facility]) Potassium3.93.5 - 5.1 mmol/L102/21/2024 6:20 AM [facility] ([facility]) Zsmcqgqe24703 - 107 mmol/L102/21/2024 6:20 AM [facility] ([facility])CO228 21 - 31 mmol/L102/21/2024 6:20 AM [facility] ([facility])SQO591 - 25 mg/dL 12/21/2024 6:20 AM [facility] ([facility])Creatinine0.55(L)0.60 - 1.20 mg/dL12/21/2024 6:20 AM [facility] ([facility])Qejccge306(H)70 - 100 mg/dL 12/21/2024 6:20 AM [facility] ([facility])Calcium8.0(L)8.6 - 10.3 mg/dL 12/21/2024 6:20 AM [facility] ([facility])Anion Mic063 - 20 mmol/L 12/21/2024 6:20 AM [facility] ([facility])lWJH608.5>60.0 mL/min/1.73m*2 12/21/2024 6:20 AM [facility] ([facility])Comment:[facility]???s estimated glomerular filtration rate (eGFR) will no [...] affect any one group of individuals. BUN/Creatinine Ratio21.8102/21/2024 6:20 AM [facility] ([facility])Specimen (Source)Anatomical Location / LateralityCollection Method / VolumeCollection TimeReceived TimeBloodVenous blood specimen / UnknownExisting Catheter / Unknown 12/21/2024 5:11 AM EST12/21/2024 5:34 AM EST Narrative Authorizing ProviderResult TypeResult StatusDalun Nile ROBLERO BLOOD ORDERABLES Final ResultPerforming OrganizationAddressCity/State/ZIP CodePhone Number [facility] ([facility]) [address] [place] [address] * CT abdomen pelvis w IV contrast [...] Electronically signed: Rai Crespo. Authorizing ProviderResult TypeResult StatusCk GONZALEZWESTOVER [facility]OSPITALJarrod [facility] PROCEDURES Final Result * ECG 12 lead (12/20/2024 12:22 PM EST) Only the most recent of15 resultswithin the time period is included. ComponentValueRef RangeTest MethodAnalysis TimePerformed AtPathologist Signature Ventricular Zsuz42XJRWE MUSEAtrial Bwzq63WIHHV MUSEPR Fqeorhlb676shRS MUSEQRS SINJWBNV75woOC MUSEQT Mpdgsokt063ftPB MUSEQTC CALCULATION(BAZETT)472msGE MUSEP Iyko24unsxsvwLT MUSER-Ddzq04gfcmaycRX MUSET Wave Qcit57eaddvzmND MUSESpecimen (Source)Anatomical Location / LateralityCollection Method / VolumeCollection TimeReceived Time12/20/2024 12:01 PM EST12/20/2024 6:54 PM EST Impressions [...] on 12/20/2024 6:54:54 PM Authorizing ProviderResult TypeResult StatusJamie Km PA-CECG ORDERABLES Final ResultPerforming OrganizationAddressCity/State/ZIP CodePhone Number [facility] MUSE * XR abdomen 1 view (12/20/2024 10:26 [...] signed: Beltran Brian MD. Authorizing ProviderResult TypeResult StatusJonomicatina Barbour PA-CIMG XR PROCEDURES Final Result * Lactic acid with 4 hour reflex (12/20/2024 10:20 AM EST)ComponentValueRef RangeTest MethodAnalysis TimePerformed AtPathologist SignatureLactate1.60.5 - 2.2 mmol/L102/20/2024 11:16 AM [facility] ([facility])Specimen (Source) Anatomical Location / LateralityCollection Method / VolumeCollection Time Received TimeBloodVenous blood specimen / UnknownExisting Catheter / Unknown 12/20/2024 10:20 AM EST12/20/2024 10:31 AM EST Narrative Authorizing ProviderResult TypeResult StatusCk Barbour PA-CLAB BLOOD ORDERABLESFinal ResultPerforming OrganizationAddressCity/State/ZIP CodePhone Number [facility] ([facility]) [address] [place] [address] * Iron and TIBC (12/20/2024 6:29 AM EST)ComponentValueRef RangeTest Method Analysis TimePerformed AtPathologist EdiylppjlJazf8617 - 212 ug/dL12/20/2024 9:44 AM [facility] ([employer])ESHX375651 - 450 ug/dL12/20/2024 9:44 AM [facility] ([facility])Iron Eizidatlga2851 - 50 %12/20/2024 9:44 AM EST [facility] ([employer])UKHI090.0155.0 - 355.0 ug/dL12/20/2024 9:44 AM EST [facility] ([employer])Specimen (Source)Anatomical Location / Laterality Collection Method / VolumeCollection TimeReceived TimeBloodVenous blood specimen / UnknownExisting Catheter / Tbperjr5112/20/2024 6:29 AM EST12/20/2024 6:29 AM EST Narrative Authorizing ProviderResult TypeResult StatusChrainer ROBLERO BLOOD ORDERABLESFinal ResultPerforming OrganizationAddressCity/State/ZIP CodePhone Number [facility] ([facility]) [address] [place] [address] * Phosphorus (12/20/2024 6:29 AM EST) Only the most recent of9 resultswithin the time period is included. ComponentValueRef RangeTest MethodAnalysis TimePerformed AtPathologist Signature Phosphorus2.72.5 - 5.0 mg/dL12/20/2024 6:59 AM [facility] ([facility]) Specimen (Source)Anatomical Location / LateralityCollection Method / Volume Collection TimeReceived TimeBloodVenous blood specimen / UnknownExisting Catheter / Zqvfpcj1912/20/2024 6:29 AM EST12/20/2024 6:29 AM EST Narrative Authorizing ProviderResult TypeResult StatusDalun Nile ROBELRO BLOOD ORDERABLES Final ResultPerforming OrganizationAddressCity/State/ZIP CodePhone Number [facility] ([facility]) [address] [place] [address] * FL small bowel series (12/19/2024 1:15 [...] from internal hernia repair Comparison: None. Findings: Electronics Computer Mechanic image demonstrates enteric catheter tip in the stomach with a nonspecific bowel gas pattern. There is contrast seen within the colon at 4 hours compatible with no high-grade or complete small bowel obstruction. Procedure Note Ty Meyer MD - 12/19/2024 Report Study: FL SMALL BOWEL SERIES Sign And Symptoms:Abdominal pain. Bowel obstruction. . post op frominternal hernia repair Comparison: None. Findings: Electronics Computer Mechanic image demonstrates enteric catheter tip in the stomach with anonspecific bowel gas pattern. There is contrast seen within the colon at 4 hourscompatible with no high-grade or complete small bowel obstruction. IMPRESSION: Impression: *Contrast seen in the colon at 4 hours compatible with no high-grade or complete small bowel obstruction. Electronically signed: Ty Meyer. Authorizing ProviderResult TypeResult StatusBenja KOOG FLUOROSCOPY PROCEDURESFinal Result * Magnesium (12/19/2024 7:49 AM EST) Only the most recent of11 resultswithin the time period is included. ComponentValueRef RangeTest MethodAnalysis TimePerformed AtPathologist Signature Magnesium2.01.9 - 2.7 mg/dL12/19/2024 9:55 AM [facility] ([facility]) Specimen (Source)Anatomical Location / LateralityCollection Method / Volume Collection TimeReceived TimeBloodVenous blood specimen / UnknownExisting Catheter / Eliikqb8912/19/2024 7:49 AM EST12/19/2024 8:14 AM EST Narrative Authorizing ProviderResult TypeResult StatusBenja ROBLERO BLOOD ORDERABLES Final ResultPerforming OrganizationAddressCity/State/ZIP CodePhone Number [facility] ([facility]) [address] [place] [address] * CA AN ELECTIVE ENDOTRACHEAL AIRWAY (12/18/2024 7:16 PM EST) Narrative Ayanna Mims CAA - 12/18/2024 7:16 PM EST [place] Jones 12/18/2024 7:24 PM Airway Date/Time: 12/18/2024 7:16 PM Reason: elective Airway not difficult General Information and Staff Patient location during procedure: [place] Anesthesiologist: Josue Walters MD Resident/THOMAS/[place]: [place] Jones Performed: resident/THOMAS/[place] Patient Condition Indications for airway [...] ProviderResult TypeResult StatusJosue Walters MDANESTHESIA ORDERABLESFinal Result * XR transfer of outside films (12/18/2024 1:10 PM EST) Only the most recent of4 resultswithin the time period is included. Specimen (Source)Anatomical Location / LateralityCollection Method / Volume Collection TimeReceived Time Narrative IMAGING - 12/18/2024 1:10 PM EST This order has been auto-finalized and does not contain a result. Authorizing ProviderResult TypeResult StatusBenja Dowd MDJarrod XR PROCEDURESFinal ResultPerforming OrganizationAddressCity/State/ZIP CodePhone Number IMAGING * CT transfer of outside films (12/18/2024 1:10 PM EST) Only the most recent of5 resultswithin the time period is included. Specimen (Source)Anatomical Location / LateralityCollection Method / Volume Collection TimeReceived Time Narrative IMAGING - 12/18/2024 1:10 PM EST This order has been auto-finalized and does not contain a result. Authorizing ProviderResult TypeResult StatusBenja Dowd MDH[facility]CRE[facility] [place] CT PROCEDURESFinal ResultPerforming OrganizationAddressCity/State/ZIP CodePhone Number IMAGING * (ABNORMAL) Comprehensive metabolic panel (12/17/2024 1:05 PM EST) Only the most recent of3 resultswithin the time period is included. ComponentValueRef RangeTest MethodAnalysis TimePerformed AtPathologist Signature [id number] - 145 mmol/L102/17/2024 1:29 PM [facility] ([facility]) Potassium3.0(L)3.5 - 5.1 mmol/L102/17/2024 1:29 PM [facility] ([facility]) Scxfnedl467(H)98 - 107 mmol/L102/17/2024 1:29 PM [facility] ([facility])CO2 2321 - 31 mmol/L102/17/2024 1:29 PM [facility] ([facility])Anion Gap97 - 20 mmol/L102/17/2024 1:29 PM [facility] ([facility])LDT312 - 25 mg/dL 12/17/2024 1:29 PM [facility] ([facility])Creatinine0.59(L)0.60 - 1.20 mg/dL12/17/2024 1:29 PM [facility] ([facility])BUN/Creatinine Ratio22.0 12/17/2024 1:29 PM [facility] ([facility])Yvveiio2081 - 100 mg/dL 12/17/2024 1:29 PM [facility] ([facility])Calcium7.8(L)8.6 - 10.3 mg/dL 12/17/2024 1:29 PM [facility] ([facility])NAA5274 - 39 U/L102/17/2024 1:29 PM [facility] ([facility])ALT (SGPT)157 - 52 U/L102/17/2024 1:29 PM [facility] ([facility])Alkaline Gckhsagizni9117 - 104 U/L102/17/2024 1:29 PM [facility] ([facility])Total Protein5.4(L)6.0 - 8.3 g/dL12/17/2024 1:29 PM [facility] ([facility])Albumin3.4(L)3.5 - 5.7 g/dL12/17/2024 1:29 PM [facility] ([facility])Total Bilirubin0.40.3 - 1.0 mg/dL12/17/2024 1:29 PM [facility] ([facility])eQER844.5>60.0 mL/min/1.73m* 1:29 PM [facility] ([facility])Comment:[facility]s estimated glomerular filtration rate (eGFR) will no [...] blood specimen / UnknownExisting Catheter / Unknown 12/17/2024 1:05 PM EST12/17/2024 1:29 PM EST Narrative Authorizing ProviderResult TypeResult Tasia ROBLERO BLOOD ORDERABLESFinal ResultPerforming OrganizationAddressCity/State/ZIP CodePhone Number [facility] ([place]) [address] [place] [address] * XR chest 1 view (12/17/2024 12:58 PM EST) Only the most recent of4 resultswithin the time period is included. Anatomical RegionLateralityModalityChestComputed RadiographySpecimen (Source) Anatomical Location / LateralityCollection Method / VolumeCollection Time Received Time12/17/2024 2:25 PM EST Impressions 12/17/2024 2:31 [...] Electronically signed: Rai Crespo. Authorizing ProviderResult TypeResult Tasia KOOG XR PROCEDURES Final Result * EUS (Upper) w/ EGD Intervention(s): EUS [...] balloon dilation up to 20 mm at [facility] that was performed in September 2024. [...] findings and interventions are described below. ??The [employer] video radial echoendoscope was then introduced through [...] MethodAnalysis TimePerformed AtPathologist SignatureCase ReportSurgical Pathology ?Case: [id number] ? Authorizing Provider: ??Braxton Bellamy MD ? Collected: ? 12/14/2024 0949 ? Ordering Location: ? [facility] ? Received: ?12/15/2024825 ? [facility]oscopy ? Pathologist: ? Pete Bolanos MD ? Specimen: ?Gastric, gastric Bx to r/o H-Pylori ? 12/19/2024 3:29 PM [facility] ([facility])Final DiagnosisStomach, biopsy: Gastric mucosa with focal erosion. No Helicobacter pylori identified, immunohistochemical stain with control. No intestinal metaplasia, dysplasia or malignancy identified.12/19/2024 3:29 PM [facility]) at 1529 ESTClinical InformationOrder Diagnoses K83.8 - Common bile duct dilatation [ICD-10-CM] 12/19/2024 3:29 PM [facility] ([facility])Gross DescriptionA. Gastric. Received in formalin labeled Juan Garcia, Gastric BX to R/O H- pylori, handwritten: G are five renner ragged mucosal bits, 0.1 to 0.3 cm. The specimen is filtered and entirely submitted in a single cassette. Sabina Seay, Pathologists' Yjyqsaqeb11/04/2025 3:29 PM [facility] ([facility])Microscopic DescriptionMicroscopic examination performed.12/19/2024 3:29 PM [facility] ([facility])DisclaimerThe interpretation of this case included the use [...] under the Clinical Laboratory Improvement Amendments of 1998.12/19/2024 3:29 PM [facility] ([facility])Specimen (Source)Anatomical Location / Laterality Collection Method / VolumeCollection TimeReceived TimeBiopsy (Gastric)12/14/2024 9:49 AM EDT1 8:26 AM EDT Narrative Authorizing ProviderResult TypeResult Aiden ROBLERO PATHOLOGY ORDERABLESFinal ResultPerforming OrganizationAddressCity/State/ZIP CodePhone Number [facility] ([facility]) [address] [place] [address] * CA AN ELECTIVE ENDOTRACHEAL AIRWAY (12/14/2024 9:25 AM EDT) Narrative Olga Abdullahi CAA - 12/14/2024 9:25 AM EDT [place] Restrepo 12/14/2024 9:33 AM Airway Date/Time: 12/14/2024 9:25 AM Reason: elective Airway not difficult General Information and Staff Patient location during procedure: [place] Anesthesiologist: Sergei Randall MD Resident/SAMPLE DYE MIXER/CAA: [place] Restrepo Performed: resident/SAMPLE DYE MIXER/[place] Patient Condition Indications for airway management: anesthesia [...] TypeResult Rupal Randall MDANESTHESIA ORDERABLESFinal Result * Hepatic function panel (12/14/2024 7:40 AM EDT) Only the most recent of3 resultswithin the time period is included. ComponentValueRef RangeTest MethodAnalysis TimePerformed AtPathologist Signature Total Bilirubin0.30.3 - 1.0 mg/dL12/14/2024 8:26 AM [facility] ([facility])Bilirubin, Direct0.10 - 0.2 mg/dL12/14/2024 8:26 AM [facility] ([facility])Alkaline Oedytxfrfig0633 - 104 U/L1 8:26 AM [facility] ([facility])JEK4298 - 39 U/L1 8:26 AM [facility] ([facility])ALT (SGPT)147 - 52 U/L1 8:26 AM [facility] ([facility])Total Protein 6.26.0 - 8.3 g/dL12/14/2024 8:26 AM [facility] ([facility])Albumin3.83.5 - 5.7 g/dL12/14/2024 8:26 AM [facility] ([facility])Specimen (Source) Anatomical Location / LateralityCollection Method / VolumeCollection Time Received TimeBloodVenous blood specimen / UnknownExisting Catheter / Unknown 12/14/2024 7:40 AM EDT1 7:49 AM EDT Narrative Authorizing ProviderResult TypeResult StatusAbdalbaro ROBLERO BLOOD ORDERABLESFinal ResultPerforming OrganizationAddressCity/State/ZIP CodePhone Number [facility] ([facility]) [address] [place] [address] * Urinalysis microscopic with reflex culture (11/26/2024 8:27 PM EDT)Component ValueRef RangeTest MethodAnalysis TimePerformed AtPathologist SignatureRBC, Urine0-2None Seen, 0-2 /HPF11/26/2024 8:52 PM [facility] ([facility]) WBC, Urine0-2None Seen, 0-2 /HPF11/26/2024 8:52 PM [facility] ([facility])Squamous Epithelial, UrineNone SeenNone Seen, Occasional, Few /LPF 11/26/2024 8:52 PM [facility] ([facility])Mucus, UrineOccasionalNone Seen, Occasional, Few /LP11/26/2024 8:52 PM [facility] ([facility]) Specimen (Source)Anatomical Location / LateralityCollection Method / Volume Collection TimeReceived TimeUrineUrine specimen obtained by clean catch procedure / UnknownNon-blood Collection / Gshxrjd6211/26/2024 8:27 PM EDT 11/26/2024 8:33 PM EDT Narrative Authorizing ProviderResult TypeResult StatusDustin Jean-Paul ANNIKA URINE ORDERABLES Final ResultPerforming OrganizationAddressCity/State/ZIP CodePhone Number [facility] ([facility]) [address] [place] [address] * (ABNORMAL) Urinalysis with reflex culture (11/26/2024 8:27 PM EDT)Component ValueRef RangeTest MethodAnalysis TimePerformed AtPathologist SignatureColor, UrineDark-Yellow(A)Colorless, Yellow, Light-Jzkipt1311/26/2024 8:52 PM [facility] ([facility])Clarity, UetdlLcnhxOksgg89/12/2025 8:52 PM [facility] ([facility])pH, Urine7.05.0 - 8.0 pH11/26/2024 8:52 PM [facility] ([facility])Leukocytes, UrineTrace(A)Fdtxrkfk64/12/2025 8:52 PM EDT [facility] ([facility])Nitrite, UrinePositive(A)Lxwbkbwq73/12/2025 8:52 PM [facility] ([facility])Protein, UrineNegativeNegative mg/dL11/26/2024 8:52 PM [facility] ([facility])Glucose, UrineNormalNormal mg/dL 11/26/2024 8:52 PM [facility] ([facility])Bilirubin, UrineSmall(A) Elfxoctd55/12/2025 8:52 PM [facility] ([facility])Specific [place], Urine1.0181.010 - 1.9806411/26/2024 8:52 PM [facility] ([facility]) Ketones, UrineNegativeNegative mg/dL11/26/2024 8:52 PM [facility] ([facility])Blood, QiqolUhrvyddzZvhcbubf52/12/2025 8:52 PM [facility] ([facility])Urobilinogen, Urine4.0(A)Normal mg/dL11/26/2024 8:52 PM [facility] ([facility])Specimen (Source)Anatomical Location / Laterality Collection Method / VolumeCollection TimeReceived TimeUrineUrine specimen obtained by clean catch procedure / UnknownNon-blood Collection / Unknown 11/26/2024 8:27 PM EDT1 8:33 PM EDT Narrative Authorizing ProviderResult TypeResult StatusDustin Jean-Paulladi ROBLERO URINE ORDERABLES Final ResultPerforming OrganizationAddressCity/State/ZIP CodePhone Number [facility] ([facility]) [address] [place] [address] * Serum Qualitative (11/26/2024 8:27 PM EDT)ComponentValueRef Range Test MethodAnalysis TimePerformed AtPathologist SignaturehCG, SerumNegative 11/26/2024 8:51 PM [facility] ([facility])Specimen (Source)Anatomical Location / LateralityCollection Method / VolumeCollection TimeReceived Time BloodVenous blood specimen / UnknownExisting Catheter / Gqrwslz0111/26/2024 8:27 PM EDT1 8:33 PM EDT Narrative Authorizing ProviderResult TypeResult StatusDustin Jean-Paulladi ROBLERO BLOOD ORDERABLES Final ResultPerforming OrganizationAddressCity/State/ZIP CodePhone Number [facility] ([facility]) [address] [place] [address] * HS Troponin I (11/26/2024 8:05 PM EDT) Only the most recent of21 resultswithin the time period is included. ComponentValueRef RangeTest MethodAnalysis TimePerformed AtPathologist Signature High Sensitivity Troponin I<2<15 ng/L1 8:42 PM [facility] ([facility])Specimen (Source)Anatomical Location / LateralityCollection Method / VolumeCollection TimeReceived TimeBloodVenous blood specimen / UnknownExisting Catheter / Zjadjmt4711/26/2024 8:05 PM EDT1 8:13 PM EDT Narrative Authorizing ProviderResult TypeResult StatusDustin Jean-Paulladi ROBLERO BLOOD ORDERABLES Final ResultPerforming OrganizationAddressCity/State/ZIP CodePhone Number [facility] ([facility]) [address] [place] [address] * (ABNORMAL) CBC auto differential (11/26/2024 8:05 PM EDT) Only the most recent of4 resultswithin the time period is included. ComponentValueRef RangeTest MethodAnalysis TimePerformed AtPathologist Signature Auto WBC5.234.00 - 10.60 10*3/uL11/26/2024 8:18 PM [facility] ([facility]) RBC3.37(L)3.80 - 5.00 10*6/uL11/26/2024 8:18 PM [facility] ([facility]) Hemoglobin9.9(L)12.0 - 15.0 g/dL11/26/2024 8:18 PM [facility] ([facility]) Sraztvihkx85.9(L)36.0 - 45.0 %11/26/2024 8:18 PM [facility] ([facility]) MCV88.782.0 - 98.0 fL11/26/2024 8:18 PM [facility] ([facility])MCH29.427.0 - 33.0 pg11/26/2024 8:18 PM [facility] ([facility])MCHC33.132.0 - 35.0 g/dL11/26/2024 8:18 PM [facility] ([facility])RDW14.011.5 - 15.0 % 11/26/2024 8:18 PM [facility] ([facility])Neutrophils %44.540.0 - 72.0 % 11/26/2024 8:18 PM [facility] ([facility])Lymphocytes %40.520.0 - 45.0 % 11/26/2024 8:18 PM [facility] ([facility])Monocytes %10.95.0 - 12.0 % 11/26/2024 8:18 PM [facility] ([facility])Eosinophils %3.10.0 - 6.0 % 11/26/2024 8:18 PM [facility] ([facility])Basophils %0.80.0 - 1.0 % 11/26/2024 8:18 PM [facility] ([facility])Neutrophils Absolute2.331.60 - 7.60 10*3/uL11/26/2024 8:18 PM [facility] ([facility])Lymphocytes Absolute 2.121.20 - 4.00 10*3/uL11/26/2024 8:18 PM [facility] ([facility])Monocytes Absolute0.570.10 - 1.00 10*3/uL11/26/2024 8:18 PM [facility] ([facility]) Eosinophils Absolute0.160.00 - 0.50 10*3/uL11/26/2024 8:18 PM [facility] ([facility])Basophils Absolute0.040.00 - 0.20 10*3/uL11/26/2024 8:18 PM [facility] ([facility])Wbkarftgo892505 - 400 10*3/uL11/26/2024 8:18 PM [facility] ([facility])nRBC %0.00 %11/26/2024 8:18 PM [facility] ([facility])Immature Granulocytes %0.20.0 - 1.0 %11/26/2024 8:18 PM [facility] ([facility])Immature Granulocytes Absolute0.010.00 - 0.20 10*3/uL11/26/2024 8:18 PM [facility] ([facility])Specimen (Source)Anatomical Location / LateralityCollection Method / VolumeCollection TimeReceived TimeBloodVenous blood specimen / UnknownExisting Catheter / Lfaldbf3411/26/2024 8:05 PM EDT 11/26/2024 8:13 PM EDT Narrative Authorizing ProviderResult TypeResult StatusDustin Jean-Paul LAB BLOOD ORDERABLES Final ResultPerforming OrganizationAddressCity/State/ZIP CodePhone Number [facility] ([facility]) [address] [place] [address] * Lipase (11/26/2024 8:05 PM EDT)ComponentValueRef RangeTest MethodAnalysis Time Performed AtPathologist VmbjpyvcyKvqzvj8109 - 82 U/L1 8:36 PM [facility] ([facility])Specimen (Source)Anatomical Location / Laterality Collection Method / VolumeCollection TimeReceived TimeBloodVenous blood specimen / UnknownExisting Catheter / Hvxueup2811/26/2024 8:05 PM EDT1 8:13 PM EDT Narrative Authorizing ProviderResult TypeResult StatusDustin Jean-Paul ANNIKA BLOOD ORDERABLES Final ResultPerforming OrganizationAddressCity/State/ZIP CodePhone Number [facility] JAZMINE) [place] [address] * MR abdomen wo contrast MRCP (11/16/2024 [...] Electronically signed: Rebecca Solano. Authorizing ProviderResult TypeResult StatusKyu Karlee Tavares [facility] CT PROCEDURES Final Result * (ABNORMAL) C-reactive protein (11/11/2024 3:29 PM EDT)ComponentValueRef Range Test MethodAnalysis TimePerformed AtPathologist MyqppmwcbMVF41.4(H)<=5.0 mg/L 11/13/2024 10:24 AM [facility]TNOR[facility] ([place])Comment:Testing performed using a new methodology, turbidimetry. Normal ranges have been updated. Old normal range was <8 mg/L.Specimen (Source)Anatomical Location / Laterality Collection Method / VolumeCollection TimeReceived TimeBloodVenous blood specimen / UnknownExisting Catheter / Jupjjoq8711/11/2024 3:29 PM EDT11/11/2024 3:42 PM EDT Narrative Authorizing ProviderResult TypeResult StatusJonelle ROBLERO BLOOD ORDERABLESFinal ResultPerforming OrganizationAddressCity/State/ZIP CodePhone Number [facility] ([facility]) [address] [place] [address] * (ABNORMAL) Sedimentation rate (11/11/2024 6:39 AM EDT)ComponentValueRef Range Test MethodAnalysis TimePerformed AtPathologist SignatureSed Rate20(H)<20 mm/hr11/11/2024 12:20 PM [facility] ([facility])Specimen (Source) Anatomical Location / LateralityCollection Method / VolumeCollection Time Received TimeBloodVenous blood specimen / UnknownExisting Catheter / Unknown 11/11/2024 6:39 AM EDT11/11/2024 6:43 AM EDT Narrative Authorizing ProviderResult TypeResult StatusJonelle ROBLERO BLOOD ORDERABLESFinal ResultPerforming OrganizationAddressCity/State/ZIP CodePhone Number [facility] ([facility]) [address] [place] [address] * LEXISCAN STRESS MYOCARDIAL PERFUSION IMAGING (11/10/2024 11:23 AM EDT) Anatomical RegionLateralityModalityOtherSpecimen (Source)Anatomical Location / LateralityCollection Method / VolumeCollection TimeReceived Time11/10/2024 11:14 AM EDT Addenda Addendum by Mtiul Zheng MD on 11/10/2024 4:35 PM EDT 1 1 [facility] [address] [place] [address] [phone] (fax) [facility] Stress Myocardial Perfusion Imaging- [facility] Name: JUAN GARCIA Study Date: 11/10/2024 11:14 AM B/P: / HR: Date of : 1990 Location: [facility] Height: 65 in. Age: 34 [...] Lexiscan Exercise Time: 03:02 Device: Treadmill HR [place] Used: 21.00 % HR Recovery: 2 bpm Frequent VE: 1 VE/min Resolution: Persisted Max HR: 98 bpm Target HR: 157 bpm Achieved: No Resting HR: 68 bpm Max Predicted HR: 185 bpm Achv. of Max Predicted: 52 % BP Max: 105/71 BP at Rest: 105/71 Max RPP: 32545 mmHg*bpm Max ST Lead: III Max ST Phase: Infusion Stage No. in Phase: [address] Stage: INFUS2:[address] Amplitude: -0.[address] [place]: -0.670 mV/s Max ST Time in Phase: [...] 1.00 mets 67 bpm 105/71 0.250 mm RVZXE4YUK 00:30 1.00 mets 90 bpm 102/70 0.400 [...] 4 - Aneurysmal Procedure Staff Reading Group: [facility] Referring Physician: BRITT ALAS Stress Lumber Straightened: [place] ??Special Services Director: Lauren Sanchez ??Ordering Physician: BACILIO PEÑA ??Advanced Practitioner: CRISTINA Gibson ??Nurse: Evelyne Abrams ?? Narrative 11/10/2024 4:35 PM EDT 1 1 [facility] [address] [id number] [phone] (fax) [facility] Stress Myocardial [facility]fusion [facility]- [facility] Name: JUAN GARCIA Study Date: 11/10/2024 11:14 AM B/P: / HR: Date of : 1990 Location: [facility] Height: 65 in. Age: 34 [...] Lexiscan Exercise Time: 03:02 Device: Treadmill HR [place] Used: 21.00 % HR Recovery: 2 bpm Frequent VE: 1 VE/min Resolution: Persisted Max HR: 98 bpm Target HR: 157 bpm ?? Achieved: No Resting HR: 68 bpm Max Predicted HR: 185 bpm Achv. of Max Predicted: 52 % BP Max: 105/71 BP at Rest: 105/71 Max RPP: 36875 mmHg*bpm Max ST Lead: III Max ST Phase: Infusion Stage No. in Phase: [address] Stage: INFUS2:[address] Amplitude: -0.[address] [place]: -0.670 mV/s Max ST Time in Phase: [...] 1.00 mets 67 bpm 105/71 0.250 mm CTBUD2CEG 00:30 1.00 mets 90 bpm 102/70 0.400 [...] 4 - Aneurysmal Procedure Staff Reading Group: [facility] Referring Physician: BRITT ALAS ??Stress Lumber Straightened: [place] ??Special Services Director: Lauren Sanchez Ordering Physician: BACILIO PEÑA ??Advanced Practitioner: CRISTINA Gibson ??Nurse: Evelyne Abrams ?? Resting Perfusion Procedure Note Mitul Zheng MD - 11/10/2024 1 1 [facility] [address] [place] [address] [phone] (fax) [facility] Stress Myocardial Perfusion [facility]- [facility] Name: JUNA GARCIA Study Date: 11/10/2024 11:14 AM B/P: / HR: Date of : 1990 Location: [facility] Height: 65 in. Age: 34 [...] Lex[facility]an Exercise Time: 03:02 Device: Treadmill HR [place] Used: 21.00 % HR Recovery: 2 bpm Frequent VE: 1 VE/min Resolution: Persisted Max HR: 98 bpm Target HR: 157 bpm Achieved: No Resting HR: 68 bpm Max Predicted HR: 185 bpm Achv. of Max Predicted: 52 % BP Max: 105/71 BP at Rest: 105/71 Max RPP: 29777 mmHg*bpm Max ST Lead: III Max ST Phase: Infusion Stage No. in Phase: [address] Stage: INFUS2:[address] Amplitude: -0.[address] [place]: -0.670 mV/s Max ST Time in Phase: [...] 1.00 mets 67 bpm 105/71 0.250 mm DTYIB6GEU 00:30 1.00 mets 90 bpm 102/70 0.400 [...] 4 - Aneurysmal Procedure Staff Reading Group: [facility] Referring Physician: BRITT ALAS Stress Lumber Straightened: [place] Special Services Director: Lauren Sanchez Ordering Physician: BACILIO PEÑA Advanced Practitioner: CRISTINA Gibson Nurse: Evelyne Abrams Resting Perfusion Authorizing ProviderResult TypeResult StatusAbhisliss Peña [facility]ED[facility] Edited Result - Final * Calcium, ionized (11/07/2024 4:50 AM EDT) Only the most recent of5 resultswithin the time period is included. ComponentValueRef RangeTest MethodAnalysis TimePerformed AtPathologist Signature Calcium, Ion1.161.15 - 1.33 mmol/L11/07/2024 5:43 AM EDTNOR[facility] Specimen (Source)Anatomical Location / LateralityCollection Method / Volume Collection TimeReceived TimeBloodVenous blood specimen / UnknownExisting Catheter / Bujguvg2911/07/2024 4:50 AM EDT11/07/2024 5:38 AM EDT Narrative Authorizing ProviderResult TypeResult StatusEduarda rBavo HENNY-DAKSHA BLOOD ORDERABLES Final ResultPerforming OrganizationAddressCity/State/ZIP CodePhone Number [facility] RESPIRATORY THERAPY [address] [place] [address], [place] * Vasc Us Lower Extremity Pseudoaneurysm [...] arterial segments and vein Authorizing ProviderResult TypeResult StatusMikayla CANELA CV VASCULAR PROCEDURESFinal Result * (ABNORMAL) Hemoglobin and hematocrit, blood (11/05/2024 9:01 AM EDT) Only the most recent of6 resultswithin the time period is included. ComponentValueRef RangeTest MethodAnalysis TimePerformed AtPathologist Signature Hemoglobin9.4(L)12.0 - 15.0 g/dL11/05/2024 9:24 AM [facility] ([place]) Pnotdaaemp21.5(L)36.0 - 45.0 %11/05/2024 9:24 AM [facility] ([place]) Specimen (Source)Anatomical Location / LateralityCollection Method / Volume Collection TimeReceived TimeBloodVenous blood specimen / UnknownExisting Catheter / Xfvvdmw0711/05/2024 9:01 AM EDT11/05/2024 9:09 AM EDT Narrative Authorizing ProviderResult TypeResult StatusTomasa ROBLERO BLOOD ORDERABLESFinal ResultPerforming OrganizationAddressCity/State/ZIP CodePhone Number [facility] JAZMINE) [place] [address] * Transfuse RBC (11/04/2024 4:57 PM EDT) Only the most recent of3 resultswithin the time period is included. Narrative Authorizing ProviderResult TypeResult StatusTomasa Disla MDBLOOD TRANSFUSION ORDERABLESFinal Result * CTA Abdomen [...] signed: Raegan Quinn. Authorizing ProviderResult TypeResult StatusKelmaida ManriqueSelect [facility]ty [facility] Final Result * HEPTEM C (11/03/2024 1:58 AM EDT)ComponentValueRef RangeTest MethodAnalysis TimePerformed AtPathologist SignatureHEPTEM C CLOTTING [id number] - 215 s 11/03/2024 1:58 [facility] THERAPYHEPTEM C AMPLITUDE 5 HFF3878 - 51 mm11/03/2024 1:58 AM EDTNORTHERN [facility] RESPIRATORY THERAPYHEPTEM C AMPLITUDE 10 MIN56 44 - 61 mm11/03/2024 1:58 AM [facility] RESPIRATORY THERAPYHEPTEM C AMPLITUDE 20 QRZ7418 - 67 mm11/03/2024 1:58 AM EDTNORTHERN [facility] RESPIRATORY THERAPYHEPTEM C MAXIMUM CLOT [id number] - 69 mm11/03/2024 1:58 AM [facility] RESPIRATORY THERAPY Specimen (Source)Anatomical Location / LateralityCollection Method / Volume Collection TimeReceived HeesMctet34/19/2025 1:58 AM EDT11/03/2024 1:58 AM EDT Narrative Authorizing ProviderResult TypeResult StatusKy ROBLERO BLOOD ORDERABLESFinal ResultPerforming OrganizationAddressCity/State/ZIP CodePhone Number [facility] RESPIRATORY THERAPY [address] [place] [address], * FIBTEM C (11/03/2024 1:58 AM EDT)ComponentValueRef RangeTest MethodAnalysis TimePerformed AtPathologist SignatureFIBTEM C AMPLITUDE 5 WMK613 - 16 mm 11/03/2024 1:58 AM EDTNORTHERN [facility] RESPIRATORY THERAPYFIBTEM C AMPLITUDE 10 WGH789 - 17 mm11/03/2024 1:58 AM [facility] RESPIRATORY THERAPYFIBTEM C AMPLITUDE 20 MIN14 6 - 18 mm11/03/2024 1:58 AM [facility] RESPIRATORY THERAPYFIBTEM C MAXIMUM CLOT VGEABAWU135 - 19 mm11/03/2024 1:58 AM [facility] RESPIRATORY THERAPYSpecimen (Source)Anatomical Location / LateralityCollection Method / VolumeCollection TimeReceived WgrhXpfig52/19/2025 1:58 AM EDT11/03/2024 1:58 AM EDT Narrative Authorizing ProviderResult TypeResult StatusKy ROBLERO BLOOD ORDERABLESFinal ResultPerforming OrganizationAddressCity/State/ZIP CodePhone Number [facility] RESPIRATORY THERAPY [address] [place] [address], * (ABNORMAL) EXTEM C (11/03/2024 1:58 AM EDT)ComponentValueRef RangeTest Method Analysis TimePerformed AtPathologist SignatureEXTEM C CLOTTING [id number] - 73 s 11/03/2024 1:58 AM [facility] RESPIRATORY THERAPYEXTEM C AMPLITUDE 5 NFE4384 - 52 mm11/03/2024 1:58 AM [facility] RESPIRATORY THERAPYEXTEM C AMPLITUDE 10 SSY2364 - 62 mm11/03/2024 1:58 AM [facility] RESPIRATORY THERAPYEXTEM C AMPLITUDE 20 MIN 6754 - 69 mm11/03/2024 1:58 AM [facility] RESPIRATORY THERAPYEXTEM C MAXIMUM CLOT [id number] - 72 mm11/03/2024 1:58 AM [facility] RESPIRATORY THERAPYEXTEM C LYSIS INDEX 60 EBF3670 - 100 %11/03/2024 1:58 AM [facility] RESPIRATORY THERAPY EXTEM C MAXIMUM LYSIS10(H)0 - 6 %11/03/2024 1:58 AM [facility] RESPIRATORY THERAPYComment:CA^Preliminary ResultSpecimen (Source)Anatomical Location / LateralityCollection Method / VolumeCollection TimeReceived TimeBlood 11/03/2024 1:58 AM EDT11/03/2024 1:58 AM EDT Narrative Authorizing ProviderResult TypeResult StatusKy ROBLERO BLOOD ORDERABLESFinal ResultPerforming OrganizationAddressCity/State/ZIP CodePhone Number [facility] RESPIRATORY THERAPY [address] [place] [address], * (ABNORMAL) INTEM C (11/03/2024 1:58 AM EDT)ComponentValueRef RangeTest Method Analysis TimePerformed AtPathologist SignatureINTEM C CLOTTING [id number] - 205 s011/03/2024 1:58 AM [facility] RESPIRATORY THERAPYINTEM C AMPLITUDE 5 MQV8974 - 54 mm11/03/2024 1:58 AM [facility] RESPIRATORY THERAPYINTEM C AMPLITUDE 10 MIN 5746 - 63 mm11/03/2024 1:[facility]INT[facility] AMPLITUDE 20 AEV8181 - 68 mm11/03/2024 1:58 AM [facility] RESPIRATORY THERAPYINTEM C MAXIMUM CLOT LKJOCWHF5124 - 70 mm11/03/2024 1:58 AM [facility] RESPIRATORY THERAPYINTEM C LYSIS INDEX 60 WQE8093 - 100 %11/03/2024 1:58 AM [facility] RESPIRATORY THERAPY INTEM C MAXIMUM LYSIS12(H)0 - 7 %11/03/2024 1:58 AM [facility] RESPIRATORY THERAPYComment:CA^Preliminary ResultSpecimen (Source)Anatomical Location / LateralityCollection Method / VolumeCollection TimeReceived TimeBlood 11/03/2024 1:58 AM EDT11/03/2024 1:58 AM EDT Narrative Authorizing ProviderResult TypeResult StatusKarlosb Mary Jane Barbour MDLAB BLOOD ORDERABLESFinal ResultPerforming OrganizationAddressCity/State/ZIP CodePhone Number [facility] RESPIRATORY THERAPY [address] [place] [address], * (ABNORMAL) Protime-INR (11/03/2024 12:07 AM EDT) Only the most recent of2 resultswithin the time period is included. ComponentValueRef RangeTest MethodAnalysis TimePerformed AtPathologist Signature Tqohxyn71.9(H)12.3 - 14.8 Yhvvvss9911/03/2024 12:53 AM [facility]INR1.17(H)0.90 - 1.10011/03/2024 12:53 AM [facility] ([facility]) Comment: ACCCP RECOMMENDED INR FOR WARFARIN THERAPY [...] TimeBloodVenous blood specimen / UnknownExisting Catheter / Cqftbko7211/03/2024 12:07 AM EDT11/03/2024 12:27 AM EDT Narrative Authorizing ProviderResult TypeResult StatusDavid Ruddy ROBLERO BLOOD ORDERABLES Final ResultPerforming OrganizationAddressCity/State/ZIP CodePhone Number [facility] LAB ([facility]) [address] [place], [place] [id number] * Fibrinogen (11/03/2024 12:07 AM EDT)ComponentValueRef RangeTest MethodAnalysis TimePerformed AtPathologist DtizjotiuQhdupegppn016402 - 425 mg/dL11/03/2024 12:53 AM [facility] ([place])Specimen (Source)Anatomical Location / LateralityCollection Method / VolumeCollection TimeReceived TimeBloodVenous blood specimen / UnknownExisting Catheter / Nwscorf3711/03/2024 12:07 AM EDT 11/03/2024 12:27 AM EDT Narrative Authorizing ProviderResult TypeResult StatusDavid Ruddy ROBLERO BLOOD ORDERABLES Final ResultPerforming OrganizationAddressCity/State/ZIP CodePhone Number [facility] ([place]) [address] [place] [address] * CA AN ELECTIVE ENDOTRACHEAL AIRWAY (11/02/2024 8:56 PM EDT) Narrative Tarik Mayers CAA - 11/02/2024 8:56 PM EDT [place] Nair 11/02/2024 9:06 PM Airway Date/Time: 11/02/2024 8:56 PM Reason: elective Airway not difficult General Information and Staff Patient location during procedure: [place] Anesthesiologist: David Reyes MD Resident/SAMPLE DYE MIXER/CAA: [place] Nair Performed: resident/SAMPLE DYE MIXER/[place] Patient Condition Indications for airway management: anesthesia [...] ComponentValueRef RangeTest MethodAnalysis TimePerformed AtPathologist Signature PRODUCT OXRYB4890C29DSPV BLOOD BANKUnit [id number] BLOOD BANKUnit ABOPRESBY[facility] BLOOD BANKUnit RhPOSNORTHERN NAVAJO MEDICAL [facility] BLOOD BANKCrossmatch InterpretationCOMMEMORIAL MEDICAL CENTER BLOOD BANKDispense StatusTRNORTHERN [facility]AVAJO [facility]ICAL [facility] BLOOD BANKBlood Expiration [id number] BLOOD BANKProduct Blood Uvrb4639EWKD BLOOD BANKUnit Uozxsy610YDHWHM BLOOD BANK Specimen (Source)Anatomical Location / LateralityCollection Method / Volume Collection TimeReceived LucuQacpq56/18/2025 8:05 PM EDT Narrative Authorizing ProviderResult TypeResult StatusTomasa Disla [facility] PRODUCT ORDERABLESFinal ResultPerforming OrganizationAddressCity/State/ZIP Code Phone Number [facility] BLOOD BANK * Type and screen (11/02/2024 8:02 PM EDT)ComponentValueRef RangeTest Method Analysis TimePerformed AtPathologist SignatureABO YqfulqxsK90/18/2025 8:42 PM [facility] BLOOD BANKRh HkvfFHC6311/02/2024 8:42 PM [facility] BLOOD BANKAb ScrnNEG 11/02/2024 8:42 PM [facility] BLOOD BANKSpecimen (Source)Anatomical Location / LateralityCollection Method / VolumeCollection TimeReceived TimeBloodVenous blood specimen / UnknownExisting Catheter / Ukrwodn0111/02/2024 8:02 PM EDT 11/02/2024 8:02 PM EDT Narrative Authorizing ProviderResult TypeResult StatusChrisadalberto Collins [facility] BLOOD BANK TEST ORDERABLESFinal ResultPerforming OrganizationAddressCity/State/ZIP Code Phone Number [facility] BLOOD BANK * Red Top (11/02/2024 8:00 PM EDT)ComponentValueRef RangeTest MethodAnalysis TimePerformed AtPathologist SignatureExtra TubeHold for add-ons.11/02/2024 10:02 PM [facility] HOSPITAL LAB ([place])Comment:Auto resulted.Specimen (Source) Anatomical Location / LateralityCollection Method / VolumeCollection Time Received TimeBloodVenous blood specimen / Ellhivz1511/02/2024 8:00 PM EDT 11/02/2024 8:19 PM EDT Narrative Authorizing ProviderResult TypeResult StatusKy Barbour [facility] BLOOD ORDERABLESFinal ResultPerforming OrganizationAddressCity/State/ZIP CodePhone Number [facility] ([facility]) [address] [place] [address] * (ABNORMAL) Activated clotting time (11/02/2024 4:43 PM EDT) Only the most recent of7 resultswithin the time period is included. ComponentValueRef RangeTest MethodAnalysis TimePerformed AtPathologist Signature Activated Clotting Yjav608(H)82 - 152 s011/02/2024 5:54 PM EDTGALLUP [facility] ([facility])Specimen (Source)Anatomical Location / LateralityCollection Method / VolumeCollection TimeReceived TimeBloodVenous blood specimen / Ekupgby5711/02/2024 4:43 PM EDT11/02/2024 5:54 PM EDT Narrative Authorizing ProviderResult TypeResult StatusCaleb T Km MDLAB POINT OF CARE TEST DOCKED DEVICE UNSOLICITED RESULTSFinal ResultPerforming OrganizationAddress City/State/ZIP CodePhone Number [facility] [place]) [address] [place] [address] * (ABNORMAL) POCT activated clotting time manually resulted (11/02/2024 4:40 PM EDT) Only the most recent of2 resultswithin the time period is included. ComponentValueRef RangeTest MethodAnalysis TimePerformed AtPathologist Signature Activated Clotting Time UVM939(A)82 - 152 secSpecimen (Source)Anatomical Location / LateralityCollection Method / VolumeCollection TimeReceived TimeBlood Venous blood specimen / Vozugbi7511/02/2024 4:40 PM EDT Narrative Authorizing ProviderResult TypeResult [...] infiltrated over the right femoral artery. ??A 6-Swiss sheath was placed in right femoral artery. ?? Coronary angiography was performed with a JL4 and then repeated after IC nitroglycerin 50 mcg x 2. At this time, it was apparent that the LAD had a moderate stenosis and IVUS and iFR were performed. ??Heparin anticoagulation was used for this procedure. ACT was maintained at >250 seconds. A 6 Swiss xb3 was engaged to the [place]. I [...] [I25.42] Unstable angina Authorizing ProviderResult TypeResult StatusCaleb T Km [facility] CARD[facility]AC CATH PROCEDURESFinal Result * Light Green Top (11/02/2024 6:15 AM EDT)ComponentValueRef RangeTest Method Analysis TimePerformed AtPathologist SignatureExtra TubeHold for add-ons. 11/02/2024 8:01 AM [facility]TGALLUP [facility] ([facility])Comment:Auto resulted.Specimen (Source)Anatomical Location / LateralityCollection Method / VolumeCollection TimeReceived TimeBloodVenous blood specimen / UnknownExisting Catheter / Bkmemmi5011/02/2024 6:15 AM EDT11/02/2024 6:38 AM EDT Narrative Authorizing ProviderResult TypeResult Lena ROBLERO BLOOD ORDERABLESFinal ResultPerforming OrganizationAddressCity/State/ZIP CodePhone Number [facility] ([facility]) [address] [place] [address] * (ABNORMAL) POCT activated clotting time docked device (11/01/2024 4:33 PM EDT) ComponentValueRef RangeTest MethodAnalysis TimePerformed AtPathologist SignatureActivated Clotting Time MVK352(A)82 - 152 [facility] ([facility])Specimen (Source)Anatomical Location / LateralityCollection Method / VolumeCollection TimeReceived CxxhKcfxr68/17/2025 4:33 PM EDT Narrative Authorizing ProviderResult TypeResult StatusKarlosb Mary Jane Barbour MDSA[facility] POINT OF CARE TEST DOCKED DEVICE ORDERABLESFinal ResultPerforming OrganizationAddress City/State/ZIP CodePhone Number [facility]) [address] [place] [address] * CORONARY ANGIOGRAPHY, ULTRASOUND - CORONARY (11/01/2024 [...] TPN presents a direct admission from [facility] with chief complaint of chest pain. [...] infiltrated over the right femoral artery. ??A 5-Swiss Terumo sheath was placed in right femoral [...] was maintained at >250 seconds. A 5 Swiss Cordis XB 3.0 guide was engaged to the left main. I decided to proceed with IVUS. ??I then advanced a Runthrough wire to the distal left anterior descending. Next, I advanced a [employer] IVUS catheter. ??IVUS imaging was performed and [...] caliber Study Details NSTEMI Authorizing ProviderResult TypeResult Lena Barbour [facility]ARD[facility] CATH PROCEDURESFinal Result * (ABNORMAL) Anti-Xa (Heparin Level) (11/01/2024 6:04 AM EDT) Only the most recent of4 resultswithin the time period is included. ComponentValueRef RangeTest MethodAnalysis TimePerformed AtPathologist Signature Anti-Xa (Heparin)0.27(L)0.3 - 0.7 IU/mL11/01/2024 6:37 AM EDTGALLUP [facility] ([place])Comment:Rivaroxaban and Apixaban will interfere with the anti Xa assay used to monitor UFH and LMWH.Specimen (Source)Anatomical Location / Laterality Collection Method / VolumeCollection TimeReceived TimeBloodBlood sample taken from central line / UnknownExisting Catheter / Ofmfxio5411/01/2024 6:04 AM EDT 11/01/2024 6:15 AM EDT Narrative Authorizing ProviderResult TypeResult Lena Barbour MDSA[facility] BLOOD ORDERABLESFinal ResultPerforming OrganizationAddressCity/State/ZIP CodePhone Number [facility] ([place]) [address] [place] [address] * (ABNORMAL) Toxicology Screen, Urine (11/01/2024 2:12 AM EDT)ComponentValueRef RangeTest MethodAnalysis TimePerformed AtPathologist SignatureBarbiturates CkyvgkwzLvzkloxc12/17/2025 2:57 AM [facility] ([facility]) BenzodiazepinesPositive(A)Ckwphcqg63/17/2025 2:57 AM [facility] ([facility])GslkpmgrmlfnFuwtltkyDmoelanv98/17/2025 2:57 AM [facility] ([facility])McjmgwtqeYozvmjrgOqrjwomg78/17/2025 2:57 AM [facility] ([facility])OyghxaafpkTcjzhxlwAwztoxxd00/17/2025 2:57 AM [facility] ([facility])PqevpwbjpyxjxLjzzoderLsazxufh52/17/2025 2:57 AM [facility] ([facility])OpiatesPositive(A)Yxuwaciv22/17/2025 2:57 AM [facility] ([facility])VmdakzcDbdugwloWlmpsnck88/17/2025 2:57 AM [facility] ([facility])Amphetamines/CnzpmhtpneetvigEadxldorAgdcjpna77/17/2025 2:57 AM [facility] ([facility])VqzivsugqjyNtddwzxrEezghhbv17/17/2025 2:57 AM [facility] ([facility])Specimen (Source)Anatomical Location / Laterality Collection Method / VolumeCollection TimeReceived TimeUrineUrine specimen obtained by clean catch procedure / UnknownNon-blood Collection / Unknown 11/01/2024 2:12 AM EDT11/01/2024 2:18 AM EDT Narrative [facility] ([facility]) - 11/01/2024 2:57 AM EDT Unconfirmed screening results should only be used for medical purposes. Authorizing ProviderResult TypeResult StatusKy ROBLERO URINE ORDERABLESFinal ResultPerforming OrganizationAddressCity/State/ZIP CodePhone Number [facility] ([facility]) [address] [place] [address] * CORONARY ANGIOGRAPHY, LEFT HEART CATH (10/31/2024 [...] for cardiac catheterization. Assistants: Cardiovascular Fellow Dr Jaent Soto. Procedure Performed: Coronary angiogram. Left heart catheterization. Administration of intraarterial nitroglycerin to treat radial artery spasm. Access into the left radial artery under ultrasound guidance. Methods: ??Procedure was explained to the patient with risks and benefits; she signed informed consent. ??she was brought to the mini lab operator in a fasting state. The left wrist area was prepped and draped in usual fashion. Micropuncture technique was used for access in the radial artery. ??A 5-Swiss x 11 cm sheath was placed. ??Verapamil was given through the sheath, and heparin was administered intravenously. ?? A 5 Swiss JR4 diagnostic catheter was advanced and this [...] catheter was then downsized to a 4 Swiss JR4 diagnostic catheter however this also was not able to engage the right coronary artery. ??Catheter was exchanged to a ??JR4 diagnostic catheter which could not engage the left coronary artery. ??Catheter was exchanged to a 4 Swiss JL 3.5 diagnostic catheter which eventually was able to engage the left coronary artery. ??Angiography was performed in multiple views. Catheter was exchanged over the wire to a 4 Swiss 3DRC catheter. ?? Multiple attempts were made [...] Study Details NSTEMI (non-ST elevated myocardial infarction) ([facility]) [I21.4] Authorizing ProviderResult TypeResult StatusCaleb T Km [facility] CATH PROCEDURESFinal Result * LIMITED ECHO (TTE) W/ COLOR FLOW AND IMAGING AGENT (10/31/2024 11:40 AM EDT) Anatomical RegionLateralityModalityOtherSpecimen (Source)Anatomical Location / LateralityCollection Method / VolumeCollection TimeReceived Time10/31/2024 11:16 AM EDT Narrative 10/31/2024 12:44 PM EDT 1 1 [facility] Heart Station [address] [place], [place] [phone] (fax) Echocardiogram-[facility] Name: JUAN GARCIA Study Date: 10/31/2024 11:16 AM B/P: 106 mmHg/67 mmHg HR: 70 bpm Date of : 1990 Location: [facility] Height: 66 in. Age: 34 [...] minimal pericardial effusion. Procedure Staff Reading Group: [place] [facility] Manager Payroll: DAVID Kearney, RDCS ??Ordering Physician: [place] BARBOUR ?? Wall Motion Scores -1 - hyperkinesia, 0 - not evaluated, 1 - normal, 2 - hypokinesia, 3 - akinesia, 4 - dyskinesia Procedure Note Mitul Zheng MD - 10/31/2024 1 1 [facility] Heart [facility] [address] [place] [address] [phone] (fax) Echocardiogram-[facility] Name: JUAN GARCIA Study Date: 10/31/2024 11:16 AM B/P: 106 mmHg/67 mmHg HR: 70 bpm Date of : 1990 Location: [facility] Height: 66 in. Age: 34 [...] minimal pericardial effusion. Procedure Staff Reading Group: [place] [facility] Payroll: DAVID Kearney, RDCS Ordering Physician: [place] BARBOUR Wall Motion Scores -1 - hyperkinesia, 0 - not evaluated, 1 - normal, 2 - hypokinesia, 3 - akinesia, 4 - dyskinesia Authorizing ProviderResult TypeResult Lena Barbour [facility] ECHO PROCEDURES Final Result * Hemoglobin A1c (10/31/2024 6:27 AM EDT)ComponentValueRef RangeTest Method Analysis TimePerformed AtPathologist SignatureHemoglobin A1C4.54.0 - 6.0 % 10/31/2024 1:13 PM [facility] ([facility])Estimated Average Imovjkt53 mg/dL10/31/2024 1:13 PM [facility] ([facility])Specimen (Source) Anatomical Location / LateralityCollection Method / VolumeCollection Time Received TimeBloodBlood sample taken from central line / UnknownExisting Catheter / Uaxkzpk2810/31/2024 6:27 AM EDT10/31/2024 7:01 AM EDT Narrative Authorizing ProviderResult TypeResult Lena ROBLERO BLOOD ORDERABLESFinal ResultPerforming OrganizationAddressCity/State/ZIP CodePhone Number [facility] ([facility]) [address] [place] [address] * (ABNORMAL) Lipid panel (10/31/2024 6:27 AM EDT)ComponentValueRef RangeTest MethodAnalysis TimePerformed AtPathologist VktpxorqyIwtfefmssibvf55<150 mg/dL 10/31/2024 9:31 AM [facility] ([facility])Comment: TRIGLYCERIDE REFERENCE RANGE: 20 YEARS AND OLDER ?CARDIOVASCULAR RISK LESS THAN 150 mg/dL ? LOW RISK 150 TO 199 mg/dL ?BORDERLINE RISK 200 mg/dL AND GREATER ? HIGH RISK Skqwabmkyis576(L)120 - 200 mg/dL10/31/2024 9:31 AM [facility] ([facility]) LDL Zxjpgupeay485 - 160 mg/dL10/31/2024 9:31 AM [facility] ([facility])HDL 4323 - 92 mg/dL10/31/2024 9:31 AM [facility] ([facility])Non HDL Pweosbxugek3253/16/2025 9:31 AM [facility] ([facility])Total VLDL-C170 - 40 mg/dL10/31/2024 9:31 AM [facility] ([facility])Cholesterol/HDL Ratio2.7 mg/dL10/31/2024 9:31 AM [facility] ([facility])Specimen (Source)Anatomical Location / LateralityCollection Method / VolumeCollection TimeReceived Time BloodBlood sample taken from central line / UnknownExisting Catheter / Unknown 10/31/2024 6:27 AM EDT10/31/2024 7:11 AM EDT Narrative Authorizing ProviderResult TypeResult StatusKy Barbour MDLAB BLOOD ORDERABLESFinal ResultPerforming OrganizationAddressCity/State/ZIP CodePhone Number [facility] ([facility]) [address] [place] [address] * TSH3 Reflex to FT4 (10/30/2024 7:11 PM EDT)ComponentValueRef RangeTest Method Analysis TimePerformed AtPathologist SignatureTSH3.460.34 - 5.60 mIU/L 10/30/2024 8:01 PM [facility] ([facility])Specimen (Source)Anatomical Location / LateralityCollection Method / VolumeCollection TimeReceived Time BloodVenous blood specimen / UnknownExisting Catheter / Ocuuhwn9710/30/2024 7:11 PM EDT10/30/2024 7:18 PM EDT Narrative Authorizing ProviderResult TypeResult StatusDebbie Luna CNPLAB BLOOD ORDERABLES Final ResultPerforming OrganizationAddressCity/State/ZIP CodePhone Number [facility] ([facility]) [address] [place] [address] * (ABNORMAL) aPTT - baseline (10/30/2024 7:11 PM EDT)ComponentValueRef RangeTest MethodAnalysis TimePerformed AtPathologist SsbjdhuuesEYZ07.0(H)25.0 - 35.0 Kzkgivx6910/30/2024 7:48 PM [facility]TG[facility] ([facility])Comment:Clinical significance of the APTT is questionable in the presence of heparin.Specimen (Source)Anatomical Location / LateralityCollection Method / VolumeCollection TimeReceived TimeBloodVenous blood specimen / UnknownExisting Catheter / Qgwmsjk2910/30/2024 7:11 PM EDT10/30/2024 7:18 PM EDT Narrative Authorizing ProviderResult TypeResult StatusDebbie Luna CNPLAB BLOOD ORDERABLES Final ResultPerforming OrganizationAddressCity/State/ZIP CodePhone Number [facility] ([facility]) [address] [facility] [place] [address] * B-type natriuretic peptide (10/30/2024 7:11 PM EDT)ComponentValueRef RangeTest MethodAnalysis TimePerformed AtPathologist XwrfnsomcEBY953 - 100 pg/mL 10/30/2024 7:49 PM [facility] ([facility])Specimen (Source)Anatomical Location / LateralityCollection Method / VolumeCollection TimeReceived Time BloodVenous blood specimen / UnknownExisting Catheter / Unqshtp2810/30/2024 7:11 PM EDT10/30/2024 7:18 PM EDT Narrative Authorizing ProviderResult TypeResult StatusDebbie Mahmoodkl CNPLAB BLOOD ORDERABLES Final ResultPerforming OrganizationAddressCity/State/ZIP CodePhone Number [facility] ([facility]) [address] [place] [address] from Last 3 Months Insurance * Guarantor: Juan Garcia Dee Dee TypeRelation to PatientDate of BirthPhone Billing AddressPersonal/ChceyvFypw10/17[birth year][id number] [address] Advance Directives * Full Code (Latest Code Status on File) Date ActivatedDate AgjqhowhkudJneaezal47/2/2025 12:23 PM12/21/2024 4:03 PM * Full Code Date ActivatedDate NadipdbdmknXjsyxbts57/1/2025 8:05 11/17/2024 4:42 PM * Full Code Date ActivatedDate InactivatedComments11/09/2024 12:31 PM11/13/2024 4:34 PM * Full Code Date ActivatedDate InactivatedComments10/30/2024 7:14 PM11/07/2024 7:10 PM * Full Code Date ActivatedDate InactivatedComments08/16/2024 9:21 PM08/20/2024 5:55 PM Care Teams Team MemberRelationshipSpecialtyStart DateEnd Date Britt Alas MD [address] [facility] [place] [address] PCP - GeneralFamily Medicine08/17/24
--- OUTSIDE RECORDS SUMMARY | 2024-12-27 11:40 | XMS_ITS | Clinical Summary ---
Author Organization [facility] Healthcare Address [address] [place] [address] Care Team Providers Care Program Trainer Name Role Phone Anna Mendez EMERGING TECHNOLOGIES DIRECTOR Unavailable Thomas Alas MD Primary Care Provider [phone] Allergies Active AllergyReactionsCriticalityNoted RvsrPkioyevfZyoehhf19/21/2023Morphine And CodeineNausea And Vomiting,Other,SgckrpzQuotbx89/23/2014 Other Reaction(s): GI Upset, Nausea/vomiting, Not available, Other (See Comments), unknown NsaidsGI bhfwpvwdbrcRmt89/15/2022 S/p RYGB Other Reaction(s): Nausea/vomiting Other Reaction(s): Other (See Comments), Unknown Gastric bypass S/p RYGB S/p RYGB Oxycodone-ZiydnypzycvdfRwhiaehdgurCnmf42/30/7255Vgwouivf89/14/2024Wound Dressing ToxvdcnhRttesZtyxbr90/23/2020 Sensitive to certain adhesive tapes. Redness and [...] the morning and 1 puff before bedtime.08/20/2021ctive Cerona NetworksTouch Ultra test strip USE TO TEST BLOOD SUGAR TWICE DAILY08/17/2021ctive hydrOXYzine HCl (Atarax) 25 MG tablet TAKE 1 TABLET BY MOUTH TWICE A DAY NEEDED FOR ANXIETY/NEVVEYCI24/24/2023 Active Lancets (OneTouch Delica Plus Djurcv19P) misc USE TO TEST BLOOD SUGAR TWICE DAILY08/17/2021ctive liothyronine (Cytomel) 5 MCG tablet liothyronine 5 mcg xtxxsq1605/21/2022ctive mirtazapine (Remeron) 15 MG tablet Take 15 [...] & Plan: Assessment: monitored per PCP Patellofemoral /20/2023Other specified noninflammatory disorders of osokri0508/04/2022Mixed incontinence urge and zwycwu2308/04/2022Mixed anxiety and depressive uqauebln76/20/2023Internal derangement of right tyggband25/20/2023 GERD (gastroesophageal reflux disease)08/04/2022 Overview (08/04/2022): Last Assessment & Plan: Assessment: takes meds,stable Gall stone08/04/20221549Bpfeuxfk78/20/4585Qzoyjnjty22/20/2023hronic constipation 08/04/20220711Qtghsw69/20/2023 Overview (08/04/2022): Takes Pro FE daily. Last Assessment & Plan: Assessment: iron infusions ~1 month ago Acute pain of right knee08/04/2022Vaginal pain08/04/2022Right flank pain 08/04/2022Rash and nonspecific skin ivodersh63/07/2023History of sleep apnea 06/24/2022History of Isabel-en-Y gastric qcxina6506/24/2022ipolar disorder 06/21/2022astric cssxqb7701/29/2022ONV (postoperative nausea and vomiting) 01/29/2022Ventral hernia without obstruction or qgcwaumd39/27/2022 Overview (08/04/2022): Last Assessment & Plan: Assessment: will have surgery Calculus of ginusg0603/10/2021History of sleeve newybiqcgtm93/22/2021 Overview (08/04/2022): Last Assessment & Plan: Assessment: 08/2020, down 50 lbs Urtvtx2808/21/2020 Overview (08/04/2022): Last Assessment & Plan: Assessment: Advair BID and Albuterol daily Unilateral primary osteoarthritis, right knee04/26/2020bnormal finding on imaging of liver04/07/2020evere protein-calorie malnutrition (HHS-HCC) 1Right upper quadrant abdominal pain01/31/2020Situational stress 01/03/2020Panic disorder without nmktgzafahw35/06/2020Back pain10/15/2019Malaise and cpovdve4710/06/2019Chronic bilateral low back pain without mvpuxrdj02/21/2020 Qxtmthm8510/06/20199246Hcqexxq79/10/2020 Overview (08/04/2022): Last Assessment & Plan: Assessment: BMI 31.8 Benign essential HTN09/25/2019 Overview (08/04/2022): Last Assessment & Plan: Assessment: not on meds,monitored per PCP BP 141/70 pulse 62 Regurgitation of food09/25/2019Preoperative ovrsiujetsj10/10/2020Nausea 09/25/2019Obstructive sleep apnea /23/2019 Overview (08/04/2022): wears mask every night Last Assessment & Plan: Assessment: uses CPAP nightly Laryngopharyngeal sfenvo2310/07/2018Adrenal lwkimisxnyvm99/20/2019Insulin vllhstjyjw02/19/2019Reactive taskzgjwdobs10/19/2019Iron tryblmzhfl80/05/2019 Chronic fatigue sxywnohq03/05/2019Vitamin D gqxarwzwbw64/05/2019Insomnia 09/15/2018Maltracking of right ktdmqml6006/27/2018Internal derangement of right knee06/15/2018Osteoarthritis of patellofemoral joint05/30/2018Chondromalacia of patella, right05/30/2018Arthritis of right knee05/30/2018Hypothyroidism affecting in second trxzfmupz45/08/2018Hypertensive /30/2018 39 weeks gestation of ([facility])11/23/2016Polycystic iqxnxtl2810/02/2013 Asthma without status gociesirbjx07/18/2014Gastric ulcer02/15/2013 Overview (08/04/2022): Last Assessment & Plan: [...] Date RecordedSex Assigned at BirthNot on fileLegal CfrUtfpxm59/01/2023 8:33 PM EDTGender IdentityNot on fileSexual OrientationNot on file Last Filed Vital Signs Vital SignReadingTime TakenCommentsBlood Zvyzgzfk361/8009 8:40 AM EDT Pulse--Temperature--Respiratory Rate--Oxygen Saturation--Inhaled Oxygen Concentration--Nxlnjt62.9 kg (185 lb)12/14/2023 2:11 PM RTWNfuomt012.6 cm (5' 6 )12/14/2023 2:11 PM EDTBody Mass Index29.8612/14/2023 2:11 PM EDT Plan of Treatment Not on file Insurance Care Teams Team MemberRelationshipSpecialtyStart DateEnd Date Thomas Alas MD [address] [place] [address] PCP - GeneralFamily Irurbdgg29/29/24 Anna Mendez [place] [address] [place] [id number] Referring Physicianmily Medicine07/23/22
--- OUTSIDE RECORDS SUMMARY | 2024-12-27 11:40 | XMS_ITS | Clinical Summary ---
Author Organization [facility] Address [address] 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 30 MG RBQFMLKQF62/26/2023 Active polyethylene glycol (Glycolax, Miralax) 17 gram/dose [...] pain06/30/2023cute renal failure superimposed on chronic kidney gerxbsb0606/29/20230364Xflplmjtyfg37/14/2024Heart gqptqsk3606/29/2023bdominal pain03/16/2023Nausea and /19/2024OSA (obstructive sleep apnea)03/05/20235753Mplmgx66/19/5376Mvfgiyi85/19/2024 Akvpxdihhjgwbg92/19/7136Inlzjvlrbp18/19/2024Median arcuate ligament syndrome 02/18/2023 Encounters DateTypeDepartmentCare FemgKxbgrbrujzr97/26/2025 11:00 AM EDT - 10/10/2024 11:59 PM EDTHospital Encounter [facility] [address] [place] [address] Discharge Disposition: Home10/09/2024 10:15 AM EDTTelemedicine [facility] [address] [place] [id number] Jerad Magaña MD Median arcuate ligament syndrome (Primary Dx) Discharge Disposition: Home10/06/2024 9:00 AM EDTAncillary Procedure [facility] [address] [place] [address] Median arcuate ligament syndromefrom Last 3 Months Family History Medical HistoryRelationNameCommentsAsthmaBrotherTom [...] relatives?Twice a week06/30/2023How often do you attend shinto or temple services?More than 4 times per year06/30/2023o you belong to any clubs or organizations such as shinto groups, unions, fraternal [...] heating?Not hard at all06/30/2023HQ-2AnswerDate RecordedPatient Health Questionnaire-2 Rtygg453Fin[facility] Grants of Occupational Health - Occupational Stress QuestionnaireAnswerDate [...] steady place to sleep or slept in mcclellandelter (including now)?No 06/30/2023UDIT-CAnswerDate RecordedQ1: How often do you have a drink containing alcohol?Never10/09/2024Q2: How many drinks containing alcohol do you have on a typical day when you are drinking?Patient does not drink10/09/2024Q3: How often do you have six or more drinks on one occasion?Never10/09/2024Comments UnknownSex and Gender InformationValueDate RecordedSex Assigned at [facility] 02/23/2023 4:19 AM ESTLegal ValMycyit45/26/2022 6:26 PM ESTGender IdentityFemale 03/02/2023 2:54 PM ESTSexual NnkrpopxhmdKkqimlqu44/16/2024 2:54 PM EST Last Filed Vital Signs Vital SignReadingTime TakenCommentsBlood Xhesikyq39/57007/03/2023 7:00 AM EDT Unvpy27787/18/2024 7:00 AM BLOJnifnffczxd83 ??C (98.6 ??F)07/03/2023 7:00 AM EDT Respiratory Bpgy589107/03/2023 7:00 AM EDTOxygen Mtorzpjiaf314%07/03/2023 7:00 AM EDTInhaled Oxygen Concentration--Tihwxq80.2 kg (168 lb)06/29/2023 6:16 PM EDT Varrns950.6 cm (5' 6 )06/29/2023 6:16 PM EDTBody Mass Index27.12006/29/2023 6:16 PM EDT Plan of Treatment Health MaintenanceDue DateLast UhlzHevjmvuvHjgcuebudkyusd60/17/1990HIV Screening 1989Lipid Panel1989Yearly Adult Pbqnqdxh88/17/1990MMR Vaccines (1 of 1 - Standard series)1990Hepatitis C Srtrkhxub43/17/2008Hepatitis A Vaccines (1 of 2 - Risk 2-dose series)2008Hepatitis B Vaccines (1 of 3 - 19+ 3-dose series)2008Pneumococcal Vaccine: Pediatrics and At-Risk Adult Patients (1 of 2 - PCV)2008Zoster Vaccines (1 of 2)2008HPV/Cotest 2010HPV Vaccines (1 - Risk 3-dose Standard series)2016COVID-19 Vaccine (2 - Woo risk series)07/21//1Cervical Cancer Screening 4Pap Smear04//07/2020TSH Level10/26//3Creatinine Level/, 07/01/2023, 06/30/2023, Additional history exists Potassium Level/, 07/01/2023, 06/30/2023, Additional history existsInfluenza Vaccine (#1)509/, 11/16/2021, 01/01/2021, Additional history existsDiabetes Egjxvgaex34/06/912740/07/2024, 08/19/2024, 08/18/2024, Additional history existsDTaP/Tdap/Td Vaccines (2 - Td or Tdap) /08/2016HIB VaccinesAged OutNo longer eligible based on patient's [...] LotMembrane, Seprafilm, 5 X 6 In - [id number] Implanted:Qty: 1 on 03/05/2023 [facility]/A: AbdomenFORMERLY [id number] / [id number] Procedures Procedure NamePriorityDate/TimeAssociated DiagnosisCommentsCT TRANSFER OF OUTSIDE VCVJYCqezxgn63/26/2025 11:03 AM EDT VASC US MESENTERIC ARTERY DUPLEX PZHRCBVNSdzaswl36/22/2025 9:40 AM EDT Median arcuate ligament syndrome POCT UHBAWPUXidzlme00/18/2024 7:17 AM EDT RENAL FUNCTION LMUDUBgjgxwc17/17/2024 6:47 AM EDT from Last 3 Months [...] AM EDT Narrative 10/06/2024 1:59 PM EDT ?[place] [address] ? Vascular Lab Report VASC US MESENTERIC ARTERY DUPLEX COMPLETE Patient Name: ?JUAN KONG ? Reading Physician: [id number] Rivera ?MD Study Date: ?10/06/2024 ? Ordering Provider: [id number] JERAD MAGAÑA MRN/PID: ? [id number] ?Fellow: Accession#: ?[id number] ?Technologist: ?Leia Degroot RVT Date of /Age: 2 1990 / 34 ?Technologist 2: ? years Gender: ?F ? Admission Status: ??Outpatient ?Location ? [facility] ? 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 72173 Mesenteric Duplex scan ` CONCLUSIONS: Mesenteric: Superior [...] cm/s KEELY Prox PSV ?? 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 LABSpecimen (Source) Anatomical Location / LateralityCollection Method / VolumeCollection Time Received TimeBloodCapillary blood specimen / Hmgsabq7307/03/2023 7:17 AM EDT 07/03/2023 7:24 AM EDT Narrative Authorizing ProviderResult TypeResult StatusCygopi ROBLERO POINT OF CARE TEST DOCKED DEVICE UNSOLICITED RESULTSFinal ResultPerforming OrganizationAddress City/State/ZIP CodePhone Number [facility] [address] [place] [address] * (ABNORMAL) Renal Function Panel (07/02/2023 6:47 AM EDT)ComponentValueRef RangeTest MethodAnalysis TimePerformed AtPathologist XpingchijTizrygh581(H)65 - 99 mg/dL07/02/2023 7:53 AM [facility] HNDCvchai476650 - 145 mmol/L07/02/2023 7:53 AM [facility] LABPotassium3.93.4 - 5.1 mmol/L07/02/2023 7:53 AM [facility] RMMZmnmvonq75864 - 107 mmol/L07/02/2023 7:53 AM [facility] OHJUxfuegvvofu07(L)24 - 31 mmol/L07/02/2023 7:53 AM [facility] LABUrea Znsrbtwd485 - 25 mg/dL07/02/2023 7:53 AM [facility] LABCreatinine0.700.40 - 1.60 mg/dL07/02/2023 7:53 AM [facility] LABeGFR>90>60 mL/min/1.73m*2 07/02/2023 7:53 AM [facility] LABComment: Calculations of estimated GFR are performed using the 2020 CKD-EPI Study Refit equation without therace variable for the IDMS-Traceable creatinine methods. https://jasn.asnjournals.org/content/early//ASN.9830233403 Calcium8.68.5 - 10.4 mg/dL07/02/2023 7:53 AM [facility] Phosphorus4.02.5 - 4.5 mg/dL07/02/2023 7:53 AM [facility] Albumin4.03.5 - 5.0 g/dL07/02/2023 7:53 AM [facility] LABAnion Gap 11<=19 mmol/L07/02/2023 7:53 AM [facility] LABSpecimen (Source) Anatomical Location / LateralityCollection Method / VolumeCollection Time Received TimeBloodVenous blood specimen / Cndfwhx9007/02/2023 6:47 AM EDT 07/02/2023 6:58 AM EDT Narrative Authorizing ProviderResult TypeResult StatusOludamirobert ROBLERO BLOOD ORDERABLESFinal ResultPerforming OrganizationAddressCity/State/ZIP CodePhone Number [facility] [address] [place] [address] from Last 3 Months or Most Recently Relevant to Health Maintenance Insurance Advance Directives For more information, please contact: [phone] (Available ) * Full Code (Latest Code Status on File) Date ActivatedDate InactivatedComments03/05/2023 2:37 PMQuestionAnswerComments Plan of Care:* Code Status Discussion Completed Decision Maker:* Patient Care Teams Team MemberRelationshipSpecialtyStart DateEnd Date Generic Provider, No Assigned Pcp, [place] [address] PCP - GeneralGeneral Practice06/29/23
[2024-12-27 11:51] LABS: Alanine Aminotransferase 94 U/L (14-59); Albumin Globulin Ratio 1.1; Albumin Level 3.3 g/dL (3.4-5.0); Alkaline Phosphatase 73 U/L (46-116); Anion Gap 9.3; Aspartate Amino Transferase 82 U/L (15-37); Blood Urea Nitrogen 11.0 mg/dL (7.0-18.0); Calcium 7.7 mg/dL (8.5-10.1); Carbon Dioxide 23.4 mmol/L (21.0-32.0); Chloride 110 mmol/L (98-107); Estimated GFR (African America >60 (>=60 mL/min/1.73m^2); Estimated GFR (Non-African Ame >60 (>=60 mL/min/1.73m^2); Globulin 3.0 g/dL; Glucose 90 mg/dL (74-106); Potassium 3.7 mmol/L (3.5-5.1); Sodium 139 mmol/L (136-145); Total Protein 6.3 g/dL (6.4-8.2)
--- NOTE | 2024-12-27 14:42 | ED_ITS ---
HPI HPI - General Adult General Chief complaint: Epistaxis Stated complaint: NOSE BLEED ABDOMINAL PAIN NAUSEA Time Seen by Provider: 12/27/24 10:39 Source: patient Mode of arrival: walk-in Limitations: no limitations History of Present Illness HPI narrative: Patient is a 34-year-old female presenting to the emergency department for concerns of abdominal pain. While waiting in the lobby, she started experiencing a nosebleed. Patient states that she had recent surgery on her abdomen for small bowel obstruction few weeks ago. She is concerned that she has another bowel obstruction because she is been having some nausea and vomiting. She still having normal bowel movements. Additionally, she started complaining of a nosebleed while waiting in the ED lobby. She is on dual antiplatelet therapy for history of coronary artery dissection. She has no active chest pain or shortness of breath. She is not on anticoagulation. Related Data Home Medications ?Medication ?Instructions ?Recorded ?Confirmed hydroxyzine HCl 25 mg tablet 25 mg PO BID PRN anxiety 09/17/22 12/08/24 topiramate 100 mg tablet 100 mg PO BID 09/17/2212/08 metoclopramide HCl 10 mg tablet 10 mg PO BID PRN nause a and 06/14/23 12/08/24 vomiting escitalopram oxalate 20 mg tablet 20 mg PO DAILY 06/1412/08/24 levothyroxine 75 mcg tablet 75 mcg PO DAILY 06/15/23 1 acetaminophen 325 mg tablet (Pain 650 mg PO Q4H PRN pa in 06/24/23 12/08/24 Relief (acetaminophen)) blood sugar diagnostic (OneTouch 03/29/24 12/08/24 Ultra Test strips) blood-glucose meter (OneTouch 03/29/24 12/08/24 Ultra2 Meter) blood-glucose sensor (FreeStyle 03/29/24 12/08/24 Hunter 3 Plus Sensor device) fentanyl 25 mcg/hr transdermal 1 patch transdermal Q72 H 03/29/24 12/08/24 patch hydrocodone 5 mg-acetaminophen 325 1 tab PO Q6H PRN pa in 03/29/24 12/08/24 mg tablet lancets 30 gauge (OneTouch Delica 03/29/24 12/08/24 Plus Lancet) pen needle, diabetic 32 gauge x 03/29/24 12/08/24 (BD Stefania 2nd Gen Pen Needle) prucalopride 2 mg tablet 2 mg PO DAILY 03/29/2412/08 trazodone 100 mg tablet 100 mg PO .qhs 03/29/2411/16 ergocalciferol (vitamin D2) 1,250 1,250 mcg PO .Q7 09/0812/08/24 mcg (50,000 unit) capsule mirtazapine 45 mg tablet 45 mg PO BEDTIME 08/16/24 aspirin 81 mg chewable tablet 1 tab PO .qd 11/19/24 clopidogrel 75 mg tablet 75 mg PO .qd 11/19/24 colchicine 0.6 mg tablet 0.3 mg PO .qod 11/19/2411/16 fentanyl 12 mcg/hr transdermal 1 patch transdermal Q72 H 11/19/24 12/08/24 patch methocarbamol 500 mg tablet 750 mg PO Q6H PRN Muscle s pasm 11/19/24 12/08/24 metoprolol succinate 25 mg 25 mg PO .qd 11/19/2412/08 tablet,extended release 24 hr ranolazine 500 mg tablet,extended 500 mg PO Q12H 11/1912/08/24 release,12 hr rosuvastatin 40 mg tablet 40 mg PO .qhs 11/19/2412/08 verapamil 40 mg tablet 40 mg PO Q8H 11/19/24 Previous Rx's ?Medication ?Instructions ?Recorded meloxicam 7.5 mg tablet 7.5 mg PO DAILY PRN pain #3 tabs 11/30/24 nitrofurantoin 100 mg PO BID 7 days #14 cap s 12/11/24 monohydrate/macrocrystals 100 mg capsule (Macrobid) Allergies Allergy/AdvReac Type Severity Reaction Status Date / Time adhesive Allergy Rash Verified 12/16/24 22:43 NSAIDS (Non-Steroidal Allergy intolerance Verified 12/16/24 22:43 Anti-Inflamma codeine AdvReac Vomiting Verified 12/16/24 22:43 Opioid HPI Opioid Management Most Recent Opioid Data: Last Pain Scale 9 12/17/24, 07:22 Last ORT Total Score 1 11/19/24, 15:40 Last ORT Risk Category Low Risk 11/19/24, 15:40 Ur Phencyclidine Scrn, (NEGATIVE) Negative , 14:10 Review of Systems ROS Status of ROS 10 or more systems reviewed and unremark able except as noted in history and below [facility] Medical History (Updated 12/27/24 @ 14:21 by Darwin Reich DO) Coronary artery dissection ?I25.42 - Coronary artery dissection (ICD-10) Hypoglycemia ?E16.2 - Hypoglycemia, unspecified (ICD-10) Gastroenteritis ?K52.9 - Noninfective gastroenteritis and colitis, unspecified (ICD-10) Feeding by G-tube ?Z93.1 - Gastrostomy status (ICD-10) Abdominal pain ?R10.9 - Unspecified abdominal pain (ICD-10) Small bowel intussusception ?K56.1 - Intussusception (ICD-10) Nausea and vomiting ?R11.2 - Nausea with vomiting, unspecified (ICD-10) Flank pain ?R10.9 - Unspecified abdominal pain (ICD-10) Abdominal pain ?R10.9 - Unspecified abdominal pain (ICD-10) Acute abdomen ?R10.0 - Acute abdomen (ICD-10) Intractable nausea and vomiting ?R11.2 - Nausea with vomiting, unspecified (ICD-10) Intractable abdominal pain ?R10.9 - Unspecified abdominal pain (ICD-10) Depression ?F32.A - Depression, unspecified (ICD-10) Asthma ?J45.909 - Unspecified asthma, uncomplicated (ICD-10) Dyspareunia Pelvic pain ?R10.2 - Pelvic and perineal pain (ICD-10) Ovarian cyst ?N83.209 - Unspecified ovarian cyst, unspecified side (ICD-10) PONV (postoperative nausea and vomiting) ?R11.2 - Nausea with vomiting, unspecified (ICD-10) ?Z98.890 - Other specified postprocedural states (ICD-10) PCOS (polycystic ovarian syndrome) ?E28.2 - Polycystic ovarian syndrome (ICD-10) Hypothyroidism (acquired) ?E03.9 - Hypothyroidism, unspecified (ICD-10) Anxiety ?F41.9 - Anxiety disorder, unspecified (ICD-10) GERD (gastroesophageal reflux disease) ?K21.9 - Gastro-esophageal reflux disease without esophagitis (ICD-10) Sleep apnea ?G47.30 - Sleep apnea, unspecified (ICD-10) Anemia ?D64.9 - Anemia, unspecified (ICD-10) Fibromyalgia ?M79.7 - Fibromyalgia (ICD-10) Syncope (07/07/13) ?R55 - Syncope and collapse (ICD-10) Shingles ?B02.9 - Zoster without complications (ICD-10) Headache ?R51.9 - Headache, unspecified (ICD-10) Migraine ?G43.909 - Migraine, unspecified, not intractable, without status migrainosus (ICD-10) Mechanical ileus (01/31/20) ?K56.609 - Unspecified intestinal obstruction, unspecified as to partial versus complete obstruction (ICD-10) COVID-19 (~02/2020) ?U07.1 - COVID-19 (ICD-10) Kidney stones ?N20.0 - Calculus of kidney (ICD-10) Surgical History S/P percutaneous endoscopic gastrostomy (PEG) tube placement ?Z93.1 - Gastrostomy status (ICD-10) 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 - Celiac artery compression syndrome (ICD-10) H/O shoulder surgery (2022) ?Z98.890 - Other specified postprocedural states (ICD-10) History of hip surgery ?Z98.890 - Other specified postprocedural states (ICD-10) S/P right knee arthroscopy ?Z98.890 - Other specified postprocedural states (ICD-10) S/P left knee arthroscopy ?Z98.890 - Other specified postprocedural states (ICD-10) Hx of tonsillectomy ?Z90.89 - Acquired absence of other organs (ICD-10) History of thoracic surgery (~2021) ?Z98.890 - Other specified postprocedural states (ICD-10) History of esophagogastroduodenoscopy (EGD) (10/04/13) ?Z98.890 - Other specified postprocedural states (ICD-10) History of cholecystectomy (10/06/13) ?Z90.49 - Acquired absence of other specified parts of digestive tract (ICD- 10) Delivery by section (~2016) Delivery by section (01/17/18) H/O colonoscopy (~2018) ?Z98.890 - Other specified postprocedural states (ICD-10) S/P right knee arthroscopy (07/21/18) ?Z98.890 - Other specified postprocedural states (ICD-10) Delivery by section (06/19/19) History of appendectomy (09/25/19) ?Z90.49 - Acquired absence of other specified parts of digestive tract (ICD- 10) H/O laparoscopy (11/10/19) ?Z98.890 - Other specified postprocedural states (ICD-10) History of liver biopsy (~04/2020) ?Z98.890 - Other specified postprocedural states (ICD-10) H/O laparoscopy (07/18/20) ?Z98.890 - Other specified postprocedural states (ICD-10) H/O arthroscopy of right knee (08/07/20) ?Z98.890 - Other specified postprocedural states (ICD-10) S/P laparoscopic sleeve gastrectomy (09/03/20) ?Z98.84 - Bariatric surgery status (ICD-10) H/O: hysterectomy (11/12/20) ?Z90.710 - Acquired absence of both cervix and uterus (ICD-10) History of hernia repair (03/20/21) ?Z98.890 - Other specified postprocedural states (ICD-10) ?Z87.19 - Personal history of other diseases of the digestive system (ICD-10) Family History Other Family history of cancer Family history of diabetes mellitus Family history of hypertension Family history of myocardial infarction PONV (postoperative nausea and vomiting) Social History Within the past year, how often did you have a drink containing alcohol: never Score interpretation: A score less than 3 is consistent with normal alcohol consumption. Smoking status: Never smoker Non-prescribed substance use: denies use Previous occupational history: disabled Known occupational exposures/hazards details: disabled Highest level of school completed/degree received: Master's degree Are you now , , , , never or living with a partner: In a typical week, how many times do you talk on the telephone with family, friends, or neighbors: 3 or more times per week How often do you get together with friends or relatives: twice per week How often do you attend adventism or orthodoxy services: 4 or more times per year Do you belong to any clubs or organizations such as adventism groups unions, fraternal or athletic groups, or school groups: no Total score: 3 Score interpretation: A score of greater than or equal to 2 indicates the lowest level of social isolation. Little interest or pleasure in doing things: not at all Feeling down, depressed, or hopeless: not at all Feel stressed/tense/nervous/anxious/difficulty sleeping: to some extent Do you think of yourself as: straight/heterosexual Gender Identity: female Exam Narrative Exam Narrative: CONSTITUTIONAL: No acute distress, holding her head forward with a bloody tissue in her hand, answering questions and following commands appropriately SKIN: Was warm and dry, no pallor. EYES: Sclerae white. No conjunctival pallor. EARS, NOSE, THROAT: There is brisk bleeding from the anterior right nares. No blood in the posterior oropharynx. RESPIRATORY: Clear to auscultation bilaterally, no wheezes, crackles, or stridor, no use of accessory muscles CARDIOVASCULAR: Normal rate and regular rhythm. There is no S3, S4, murmur, rub. GASTROINTESTINAL: Abdomen is soft, nontender, and nondistended. No rebound tenderness or guarding. MUSCULOSKELETAL: No peripheral edema. NEUROLOGIC: Patient is awake and alert. Facies were symmetrical. Constitutional Vital Signs, click to edit/add: Last Vital Signs Temp 98 F 12/27/24 10:43 Pulse 90 12/27/24 10:43 Resp 18 12/27/24 10:43 BP 118/74 12/27/24 10:43 Pulse Ox 100 12/27/24 10:43 O2 Del Method Room Air 12/27/24 10:43 Course Vital Signs Vital signs: Vital Signs Temperature 98 F 12/27/24 10:43 Pulse Rate 90 12/27/24 10:43 Respiratory Rate 18 12/27/24 10:43 Blood Pressure 118/74 12/27/24 10:43 Pulse Oximetry 100 12/27/24 10:43 Oxygen Delivery Method Room Air 12/27/24 10:43 Temperature 98 F 12/27/24 10:43 Pulse Rate 90 12/27/24 10:43 Respiratory Rate 18 12/27/24 10:43 Blood Pressure 118/74 12/27/24 10:43 Pulse Oximetry 100 12/27/24 10:43 Oxygen Delivery Method Room Air 12/27/24 10:43 Medical Decision Making MDM Narrative Medical decision making narrative: Patient is a 34-year-old female presenting to the emergency department for evaluation of nausea and abdominal pain over the last 3 days. She had a recent abdominal surgery for SBO a couple weeks ago. Her vital signs arrival are within normal limits. She is afebrile and hemodynamically stable. On examination, she has brisk bleeding from the right naris secondary to anterior epistaxis. Differential diagnosis includes postoperative ileus, SBO, partial SBO, or other intra-abdominal pathologies. IV was established and laboratory studies were obtained. CT abdomen/pelvis was ordered. She was given 2 mg IV morphine and 4 mg IV Zofran for symptomatic treatment. In regards to the patient's epistaxis, I did initially treat this with direct pressure. This did not work, therefore 2 x 2 soaked in oxymetazoline and li docaine with epinephrine was packed into the naris. After 15 minutes, this did not achieve hemostasis. Therefore, a 5.5 cm Rhino Rocket was placed in the right naris which achieved stasis. She had no active bleeding going down her throat, this is most likely anterior epistaxis. CT abdomen/pelvis independently reviewed and interpreted by myself and radiology demonstrated possible borderline distended small bowel loops, likely ileus. Possible early small bowel obstruction. Laboratory studies were unremarkable. No significant electrolyte or metabolic derangement. No evidence of acute kidney injury. No significant anemia, leukocytosis, or thrombocytopenia. Chronic transaminitis. On reevaluation, the bleeding has completely stopped from the right naris. She states she feels improved after IV antiemetics and analgesia. Presentation is likely secondary to a mild ileus from her recent intra-abdominal surgery. I did give her a p.o. challenge with crackers and water, which she tolerated. She states she feels comfortable being discharged home at this point. I do believe the patient is stable for discharge. They were instructed to follow up with her surgeon for further care. Additionally, she was instructed follow- up with the ENT clinic or return to the ED for removal of the Rhino Rocket in 24 to 48 hours. Return precautions were given including any new or worsening sympt oms, including intractable vomiting or abdominal pain. Patient understands and agrees to the plan. FINAL IMPRESSION: #Acute abdominal pain, likely mild ileus #Acute right anterior epistaxis DISPOSITION: Discharged home CONDITION: Fair Medical Records Medical records reviewed: Yes I reviewed the patient's medical records Lab Data Lab results reviewed: Yes I reviewed the patient's lab results Labs: Lab Results 12/27/24 Range/Units 11:01 WBC 5.4 (4.0-11.0) 10^3/uL RBC 3.49 L (4.20-5.40) 10^6/uL Hgb 10.7 L (12.0-16.0) g/dL Hct 32.5 L (36.0-48.0) % MCV 93.1 (81.0-99.0) fL MCH 30.7 (26.7-34.0) pg MCHC 32.9 (29.9-35.2) g/dL RDW 16.3 H (11.0-15.0) % Plt Count 213 (150-450) 10^3/uL MPV 11.0 (9.5-13.5) fL Neut % (Auto) 70.9 (43.0-75.0) % Lymph % (Auto) 21.4 (20.5-60.0) % Burke % (Auto) 4.5 (1.7-12.0) % Eos % (Auto) 2.6 (0.9-7.0) % Baso % (Auto) 0.4 (0.2-2.0) % Neut # (Auto) 3.8 (1.4-6.5) 10^3/uL Lymph # (Auto) 1.2 (1.2-3.8) 10^3/uL Burke # (Auto) 0.2 L (0.3-0.8) 10^3/uL Eos # (Auto) 0.1 (0.0-0.7) 10^3/uL Baso # (Auto) 0.0 (0.0-0.1) 10^3/uL Abs Immat Gran (auto) 0.01 (0.00-0.03) 10^3/uL Imm/Tot Granulo (auto) 0.2 (0.0-0.5) % Sodium 139 (136-145) mmol/L Potassium 3.7 (3.5-5.1) mmol/L Chloride 110 H (98-107) mmol/L Carbon Dioxide 23.4 (21.0-32.0) mmol/L Anion Gap 9.3 BUN 11.0 (7.0-18.0) mg/dL Creatinine 0.67 (0.55-1.02) mg/dL Est GFR ( Amer) >60 (>=60 mL/min/1.73m^2) Est GFR (Non-Af Amer) >60 (>=60 mL/min/1.73m^2) BUN/Creatinine Ratio 16.4 Glucose 90 (74-106) mg/dL Calcium 7.7 L (8.5-10.1) mg/dL Total Bilirubin 0.3 (0.2-1.0) mg/dL AST 82 H (15-37) U/L ALT 94 H (14-59) U/L Alkaline Phosphatase 73 (46-116) U/L Total Protein 6.3 L (6.4-8.2) g/dL Albumin 3.3 L (3.4-5.0) g/dL Globulin 3.0 g/dL Albumin/Globulin Ratio 1.[address] scan - abdomen: Attestation: I personally reviewed and interpreted this imaging study as follows: Radiologist's impression: ITS Impressions Abdomen/Pelvis CT 12/27/24 10:57 IMPRESSION: CONTINUED SUSPECTED HEPATIC CYSTS. RIGHT NEPHROLITHIASIS, WITHOUT OBSTRUCTION. BORDERLINE DISTENDED SMALL BOWEL LOOPS. GIVEN THE HISTORY OF INTERVAL SURGERY, THIS MIGHT BE ILEUS HOWEVER EARLY OR PARTIAL SMALL BOWEL OBSTRUCTION IS NOT COMPLETELY EXCLUDED. FOLLOW-UP IS THEREFORE SUGGESTED. Impression dictated by: Maricruz Hutchinson M.D. 12/27/2024 12:39 PM Dictation Location: [place] [address] Electronically authenticated by: [id number] Y Date: 12/27/2024 12:39 Discharge Plan Discharge Chief Complaint: Epistaxis Clinical Impression: Acute anterior epistaxis, Ileus Patient Disposition: Home, Self-Care Time of Disposition Decision: 14:20 Condition: Good Mode of Transportation: Private Vehicle Prescriptions / Home Meds: No Action (DME) blood-glucose meter [OneTouch Ultra2 Meter] [facility] MISCELLANEOUS (DME) OneTouch Ultra Test Strip MISCELLANEOUS fentanyl 25 mcg/hr patch 72 hour 1 patch transdermal Q72H (DME) FreeStyle Hunter 3 Plus Sensor Device MISCELLANEOUS hydrocodone-acetaminophen 5-325 mg tablet 1 tab PO Q6H PRN (Reason: pain) (DME) lancets [OneTouch Delica Plus Lancet] 30 gauge [facility] [place] MISCELLANEOUS (DME) pen needle, diabetic [BD Stefania 2nd Gen Pen Needle] 32 gauge x 5/32 needle MISCELLANEOUS prucalopride 2 mg tablet 2 mg PO DAILY trazodone 100 mg tablet 100 mg PO .qhs mirtazapine 45 mg tablet 45 mg PO BEDTIME aspirin 81 mg tablet,chewable 1 tab PO .qd Rx Instructions: with breakfast clopidogrel 75 mg tablet 75 mg PO .qd colchicine 0.6 mg tablet 0.3 mg PO .qod fentanyl 12 mcg/hr patch 72 hour 1 patch transdermal Q72H metoprolol succinate 25 mg tablet extended release 24 hr 25 mg PO .qd ranolazine 500 mg tablet extended release 12 hr 500 mg PO Q12H rosuvastatin 40 mg tablet 40 mg PO .qhs verapamil 40 mg tablet 40 mg PO Q8H methocarbamol 500 mg tablet 750 mg PO Q6H PRN (Reason: Muscle spasm) nitrofurantoin monohyd/m-cryst [Macrobid] 100 mg capsule 100 mg PO BID 7 Days Qty: 14 0RF Rx Instructions: must administer with a meal/food hydroxyzine HCl 25 mg tablet 25 mg PO BID PRN (Reason: anxiety) topiramate 100 mg tablet 100 mg PO BID metoclopramide HCl 10 mg tablet 10 mg PO BID PRN (Reason: nausea and vomiting) levothyroxine 75 mcg tablet 75 mcg PO DAILY escitalopram oxalate 20 mg tablet 20 mg PO DAILY acetaminophen [Pain Relief (acetaminophen)] 325 mg tablet 650 mg PO Q4H PRN (Reason: pain) ergocalciferol (vitamin D2) 1,250 mcg (50,000 unit) capsule 1,250 mcg PO .Q7 meloxicam 7.5 mg tablet 7.5 mg PO DAILY PRN (Reason: pain) Qty: 3 0RF Rx Instructions: please take with food Print Language: Bengali Instructions: Nosebleed (ED), Ileus (ED) Additional Instructions: Follow up with ENT or return to ED in 24-48 hours to have Rhinorocket removed. Referrals: Thomas Alas MD [Primary Care Provider, Family Practice] - 1 week Jesi Cope MD [Physician, Ear, Nose, Throat] - As soon as possible Discharge Date/Time: 12/27/24 14:26
== END 2024-12-27 14:26 | disposition home or self-care (01) ==
PROVIDERS: Emergency Provider Student in an Organized Health Care Education/Training Program; PCP Family Medicine
DX: K56.7 Ileus, unspecified (principal); R04.0 Epistaxis; Z79.02 Long term (current) use of antithrombotics/antiplatelets; Z98.890 Other specified postprocedural states; D64.9 Anemia, unspecified; R11.2 Nausea with vomiting, unspecified; E86.0 Dehydration
CPT/HCPCS: 30901; 36415; 74176; 80053; 85025; 96374; 96375; 96376; 99284; J0780; J1200; J2270; J2405

== ENCOUNTER 2025-01-09 10:51 | Emergency (ER) | payer MEDICAID, SELFPAY ==
--- OUTSIDE RECORDS SUMMARY | 2024-10-31 04:45 | XMS_ITS ---
Author Organization The [facility] in [place] Address [address] [place] [address] Care Team Providers Care Senior Care Manager Name Role Phone Brandyn Alas Primary Care Provider [phone] REASON FOR VISIT ER F/U Encounters Encounter Location Date Provider Diagnosis [facility] [address] [place] [address] 10/31/2024 Brandyn Alas Plan Of Treatment No Information Progress Notes * Abbey KONG MDOB:1990 (34 yo F)Acc No.[id number]:10/31/2024 UNLOCKED PROGRESS NOTE Progress Note Patient: Abbey OSBORNE :?Thomas Alas (TTC), MDDOB:1990???Age: 34 Y???Sex:FemaleDate:10/31/2024Phone:[phone]:[address] [place] [phone] Subjective: * Chief Complaints: * 1 . ER F/U. * Medical History: Objective: * Vitals: Assessment: Plan: * Treatment: * * Electronic signature of Brandyn Alas MD, [id number] on 01/09/2025 at 12:15 PM EST Sign off status: PendingVisit Status:?N/S N/C (No Show/No Charge) * Provider: Du StaffordTTCMD Miguel Date: 0 10/31/2024 Generated for Printing/Faxing/eTransmitting on:?01/09/2025 12:15 PM EST
--- OUTSIDE RECORDS SUMMARY | 2024-11-03 09:15 | XMS_ITS ---
Author Organization [facility] Address [address] [facility] [place] [address] Care Team Providers Care Naphthol Soaping Machine Operator Name Role Phone Ashley Bryson Primary Care Provider [phone] Christina Dominguez Unavailable Unavailable REASON FOR VISIT DEBRIDEMENT Encounters Encounter Location Date Provider Diagnosis [facility] [address] [place] [address] 11/03/2024 Christina Dominguez Plan Of Treatment No Information Progress Notes * JUAN KONG MDOB:1990 (34 yo F)Acc No.[id number]:11/03/2024 Patient:?DILAN JUAN Flores :?Christina DominguezDOB:1990???Age:34 Y???Sex: FemaleDate:11/03/2024Phone:[phone]:[address] [place], [place] [phone]:Ashley Bryson Subjective: * Chief Complaints: * D EBRIDEMENT * Electronic signature of Christina Dominguez on 01/09/2025 at 12:15 PM ESTSign off status: Pending * Provider: Lesia Dominguez Date: 0 11/03/2024 Generated for Printing/Faxing/eTransmitting on:?01/09/2025 12:15 PM EST
--- OUTSIDE RECORDS SUMMARY | 2024-11-21 05:00 | XMS_ITS ---
Author Organization The [facility] in [place] Address [address] [place] [address] Care Team Providers Care Barkeeper Name Role Phone Brandyn Alas Primary Care Provider REASON FOR VISIT [facility] D/C- 10/3-R lower Quadrant Pain Encounters Encounter Location Date Provider Diagnosis [facility] [address] [place] [address] 11/21/2024 Brandyn Alas Plan Of Treatment No Information Progress Notes * Abbey KONG MDOB:1990 (34 yo F)Acc No.[id number]:11/21/2024 UNLOCKED PROGRESS NOTE Progress Note Patient: Abbey OSBORNE :?Thomas Alas (TTC), MDDOB:1990???Age: 34 Y???Sex:FemaleDate:11/21/2024Phone:[phone]:[address] [place] [phone] Subjective: * Chief Complaints: * 1 . [facility] D/C- 10/3-R lower Quadrant Pain. * Medical History: Objective: * Vitals: Assessment: Plan: * Treatment: * * Electronic signature of Brandyn Alas MD, [id number] on 01/09/2025 at 12:16 PM EST Sign off status: PendingVisit Status:?CANC (Cancelled) * Provider: Du Alas ([facility])MD Date: 1 Generated for Printing/Faxing/eTransmitting on:?01/09/2025 12:16 PM EST
--- OUTSIDE RECORDS SUMMARY | 2024-12-28 15:00 | XMS_ITS | Encounter Summary ---
Author Organization [facility] Address [address] [facility] [place] [address] Care Team Providers Care Diploma Pharmacy Technician Name Role Phone Thomas Alas MD Primary Care Provider [phone] Vicky Cardenas RN Unavailable Unavailable Reason for Visit * ReasonCommentsPost-opBessie is here today for post op visit: s/p 12/18/24 DIAGNOSTIC LAPAROSCOPY LAPAROSCOPIC CLOSURE OFINTERNAL HERNIA SPACE Encounter Details DateTypeDepartmentCare Team (Latest Contact Info)Mwrpulvxnap90/13/2025 3:00 PM ESTOffice Visit [facility] [address] [place] [id number] Donnie Cesar MD [address] [place] [address] History of Tan-en-Y gastric bypass (Primary Dx) Social History Tobacco UseTypesPacks/DayYears UsedDateSmoking Tobacco: NeverSmokeless Tobacco: NeverAlcohol UseStandard Drinks/WeekCommentsNot Currently0 (1 standard drink = 0.6 oz pure alcohol)[facility] UtilitiesAnswerDate RecordedIn the past 12 months has the electric, gas, oil, or water company threatened to shut off services in your home?Yes12/17/2024Overall Financial Resource Strain (CARDIA)AnswerDate Recorded How hard is it for you to pay for the very basics like food, housing, medical care, and heating?Not hard at all12/17/2024PHQ-2AnswerDate RecordedPatient Health Questionnaire-2 Dtauq33102/28/2024Humiliation, Afraid, Rape, and Kick questionnaireAnswerDate RecordedWithin the last year, have you been afraid of your partner or ex-partner?No12/28/2024Emotionally AbusedNot on file12/28/2024 Physically AbusedNot on file12/28/2024Sexually AbusedNot on file12/28/2024 TransportationAnswerDate RecordedIn the past 12 months, has [...] or living in a senior care (including now)?No12/17/2024Hunger Vital SignAnswerDate RecordedWithin the past 12 months, you worried that your food would run out before you got the money to buymore.Never true12/17/2024Ran Out of Food in the Last YearNot on file 12/17/2024CommentsNoSex and Gender InformationValueDate RecordedSex Assigned at DkduuKedezd71/03/2025 3:45 PM EDTLegal BiqZaptam07/30/2022 12:07 AM EDTGender TzrvlejwOgavco36/03/2025 3:45 PM EDTSexual OrientationHeterosexual or Zftzafwl70/03/2025 3:45 PM EDTdocumented as of this encounter Last Filed Vital Signs Vital SignReadingTime TakenCommentsBlood Ipelqmgx644/56102/28/2024 3:01 PM EST Pvayc700912/28/2024 3:01 PM IQOEbfneductfl92 ??C (98.6 ??F)12/28/2024 3:01 PM EST Respiratory Rate--Oxygen Saturation--Inhaled Oxygen Concentration--Otetvd37.9 kg (180 lb 9.6 oz)12/28/2024 3:01 PM JEKSkdrax599.6 cm (5' 6 )12/28/2024 3:01 PM ESTBody Mass Index29.15102/28/2024 3:01 PM ESTdocumented in this encounter Functional Status * BPAnswerDate of NrsejmfpcyTnegho347/56102/28/2024 3:01 PM Summer Comer MA * PulseAnswerDate of FmrmcfjhwgKlfyuo3301/13/2025 3:01 PM Summer Comer MA * Patient PositionAnswerDate of LctnrhwrkdOutbwgIijgvqe93/13/2025 3:01 PM Summer Sevilla MA * Fall RiskQuestionAnswerDate of AssessmentAuthorWorried about fallin 12/28/2024 3:09 PM Summer Comer MAOne or more falls in the last year: No12/28/2024 3:09 PM Summer Comer MAFeels unsteady when walkin 12/28/2024 3:09 PM Summer Comer MA * BPAnswerDate of EnvuivayezIwfcru616/56102/28/2024 3:01 PM Summer Comer MA * TempAnswerDate of LdsygbtncyUjckrf03.6102/28/2024 3:01 PM Summer Comer MA * Temp srcAnswerDate of FindybewszUmnlpkHaqz31/13/2025 3:01 PM Summer Comer MA * PulseAnswerDate of PwcipfbqhwFkissc4031/13/2025 3:01 PM Summer Comer MA * Over the past 2 weeks, how often have you been bothered by any of the following problems?QuestionAnswerDate of AssessmentAuthorLittle interest or pleasure in doing thingsNot at all12/28/2024 3:09 PM Summer Comer MA Feeling down, depressed, or hopelessNot at all12/28/2024 3:09 PM Summer Comer MAPatient Health Questionnaire-2 Lnzzd39002/28/2024 3:09 PM Summer Comer MA * BP LocationAnswerDate of AssessmentAuthorRight arm12/28/2024 3:01 PM Summer Sevilla MA * Modified Malnutrition Screen Tool (MST)QuestionAnswerDate of AssessmentAuthor Have you been eating poorly because of a decreased appetite?No12/28/2024 3:09 PM Summer Comer MAHave you recently lost weight without trying?No 12/28/2024 3:09 PM Summer Comer MA * Patient PositionAnswerDate of GrickjgsbbYskyhkYdajrmy33/13/2025 3:01 PM Summer Sevilla MA documented as of this encounter Progress Notes * Donnie Cesar MD - 12/28/2024 3:00 PM EST Subjective Patient ID: Abbey Garcia is a 34 y.o. female who presents for Post-op (Abbey is here today for post op visit: s/p 12/18/24 DIAGNOSTIC LAPAROSCOPY /LAPAROSCOPIC CLOSURE OF INTERNAL HERNIA SPACE). HPI Patient is a 34 y/o woman with hx of sleeve gastrectomy 2020 and sleeve conversion to tan-en-y gastric bypass in 2021, MALS s/p open MAL release 2022 on TPN here for post op visit from recent diagnostic laparoscopy for internal hernia. Patient doing well but still noted intermittent epigastric discomfort with liquid intake. Patient denies issues with incisions. Review of Systems Constitutional: Negative. HENT: Negative. Respiratory: Negative. Cardiovascular: Negative. Gastrointestinal: Positive for abdominal pain and nausea. Genitourinary: Negative. Musculoskeletal: Negative. Neurological: Negative. Hematological: Bruises/bleeds easily. Objective Visit Vitals BP 115/56 (BP Location: Right arm, Patient Position: Sitting) Pulse 74 Temp 37 ??C (98.6 ??F) (Oral) Physical Exam Constitutional: General: She is not in acute distress. Appearance: Normal appearance. She is not ill-appearing. HENT: Head: Normocephalic. Right Ear: External ear normal. Left Ear: External ear normal. Nose: Nose normal. Mouth/Throat: Mouth: Mucous membranes are moist. Eyes: General: No scleral icterus. Right eye: No discharge. Left eye: No discharge. Conjunctiva/sclera: Conjunctivae normal. Cardiovascular: Rate and Rhythm: Normal rate and regular rhythm. Pulses: Normal pulses. Pulmonary: Effort: Pulmonary effort is normal. No respiratory distress. Abdominal: General: There is no distension. Palpations: Abdomen is soft. Tenderness: There is no abdominal tenderness. Comments: Incisions c/d/i Musculoskeletal: General: No swelling or deformity. Cervical back: Neck supple. Skin: General: Skin is warm. Capillary Refill: Capillary refill takes less than 2 seconds. Coloration: Skin is not jaundiced. Neurological: General: No focal deficit present. Mental Status: She is alert and oriented to person, place, and time. Psychiatric: Mood and Affect: Mood normal. Assessment/Plan Diagnoses and all orders for this visit: History of Tan-en-Y gastric bypass - [place] upper GI w KUB; Future Discussed that her dysphagia/nausea/epigastric pain likely related to dysmotility/functional dyspepsia as noted by GI given no intraoperative findings of significant intussusception, internal hernia,or stricture. Will further evaluate with UGI w/ KUB to look at the pouch/GJ/JJ anastomosis. Recommend continue to follow with GI for medical treatment/titration. Will refer to our mainframe software developer to help with nutrition. Diagnosis Plan 1. History of Tan-en-Y gastric bypass [place] upper GI w KUB Orders Placed This Encounter Procedures [place] upper GI w KUB Standing Status: Future Expected Date: 12/28/2024 Expiration Date: 12/28/2025 Release to Patient: Immediately Is the patient ?: No No results found for this or any previous visit (from the past 36 hours). No follow-ups on file. documented in this encounter Plan of Treatment DateTypeDepartmentCare Team (Latest Contact Info)Jqjqppcuwdr72/03/2025 8:15 AM ESTAppointment [facility] [address] [place] [address] 01/23/2025 1:00 PM ESTClinical Support [facility] Surgery Clinic [address] [place] [address] 01/31/2025 11:00 AM ESTOffice Visit [facility] [address] [place] [address] Wali Collins MD [address] [place] [address] 06/28/2025 1:15 PM EDTFollow-Up [facility] [address] [place] [address] Donnie Cesar MD [address] [facility] [place] [address] NameTypePriorityAssociated DiagnosesOrder ScheduleFL upper GI w KUBImaging Routine History of Tan-en-Y gastric bypass Expected: 12/28/2024, Expires: 12/28/2025documented as of this encounter Visit Diagnoses Diagnosis History of Tan-en-Y gastric bypass- Primary documented in this encounter Care Teams Team MemberRelationshipSpecialtyStart DateEnd Date Thomas Alas MD [address] [facility] [address] [address] PCP - GeneralFamily Medicine08/17/24 Vicky Cardenas RN Case ManagerCase Ipyqulkfnu19/13/25documented as of this encounter
--- OUTSIDE RECORDS SUMMARY | 2025-01-01 05:30 | XMS_ITS ---
Author Organization [facility] [place] Address [address] [place] [address] Care Team Providers Care Cable Braider Name Role Phone Brandyn Alas Primary Care Provider Allergies Allergen (clinical drug ingredient) Drug/Non Drug Allergy documented on EMR Reaction Allergy Type Onset Date Status codeine Codeine vomiting Drug Allergy ActiveNon-steroidal anti-inflammatory agent (FN)NSAIDsGastric bypassDrug Allergy Active REASON FOR VISIT Presents to office alone for f/o from [facility] for bowel obstruction. Said they removed adhesion, repaired hole in intestine and untwisted bowel Medications Medication SIG (Take, Route, Frequency, Duration) Notes Start Date End Date Status Doxycycline Monohydrate 100 MG 1 tablet Orally b id; Duration: 10 days 5ActivefentaNYL 25 MCG/HR 1 patch to skin Transdermal Q 3 days K56.600 5ActivefentaNYL 12 MCG/HR 1 patch to skin Transdermal Q3d; Duration: 30 days with a 25mcg patch 5ActiveFerrous Sulfate 325 (65 Fe) MG1 tablet Orally weekly; Duration: 30 days4ActiveFreeStyle Hunter 3 Plus Sensor -USE TO MONITOR GLUCOSE CHANGE ONCE EVERY 15 DAYS; Duration: 30ActiveAspirin 81 MG1 tablet Orally Once a day0140EjlfuaOmsapoffqa-VDRA-Hqdffdyx 50-325-40 MGTAKE 1 TABLET BY MOUTH EVERY 4 HOURS NEEDED FOR HEADACHE; Duration: 4PRN5ActiveColchicine 0.6 MG1/2 tablet Oral every other day; Duration: 30 daysActiveCompazine 10 MG1 tablet as needed Orally Three times a day12/22/2023ctiveTopamax 100 MG1 tablet Orally BID; Duration: 30 days06/23/2023ctivetraZODone HCl 100 MG1 tablet Orally bnnobae8011/18/2023ctiveVerapamil HCl 40 MG1 tablet Oral every 8 hours; Duration: 30 daysActivetraMADol HCl 50 MG 1 tablet as needed Orally qid; Duration: 30 days As needed PRN103/03/2024tiveTest Strips - Test sugar Once daily; Duration: 90 days Dx: E11.9 5ActiveRemeron 30 MG1.5 tablet at bedtime Orally Once a day06/23/2023 ActiveHYDROcodone-Acetaminophen 5-325 MG 1 - 2 tablet as needed - max 6/day Orally every 6 hrs; Duration: 30 days K56.600 K56.4567001/01/2025tiveRosuvastatin Calcium 40 MGTAKE 1 TABLET BY MOUTH AT BEDTIME Oral; Duration: 30 DaysActiveSucralfate 1 GM1 tablet on an empty stomach Orally TID5ActivePlavix 75 MG1 tablet Orally Once a day11/14/2024tive Promethazine HCl 25 MG1 tablet Orally 4 times a day- PRN; Duration: 7 days 12/12/2024tivePrucalopride Succinate 2 MG1 tablet Orally Once a day; Duration: 30 daysActiveRanolazine ER 500 MGTAKE 1 TABLET BY MOUTH TWICE DAILY Oral; Duration: 30 DaysActiveOndansetron 4 MG 1-2 tablet on the tongue and allow to dissolve Orally q4h; Duration: 30 days As needed 09/29/2023ctiveOneTouch Ultra 2 w/DeviceUSE TO MONITOR BLOOD GLUCOSE LEVELS DAILY; Duration: 30ActiveOxygenUse 2Liters of continuous oxygen at HS per oxygen concentrator DX Nocturnal hypoxia d/t respiratorydepression; Duration: 365 days 12/11/2024tiveMetoprolol Succinate ER 25 MGOral; Duration: 30 DaysActive Nitroglycerin 0.4 MG1 sl Sublingual Q 5 min as needed for chest pain11/29/2024 ActiveLevothyroxine Sodium 75 MCGTAKE 1 TABLET BY MOUTH EVERY MORNING ON AN EMPTY STOMACH FOR 30 DAYS; Duration: 90ActiveLexapro 20 MG1 tablet Orally Once a day06/23/2023ctiveLiothyronine Sodium 5 MCG1 tablet on an empty stomach Orally Once a day; Duration: 30 days06/23/2023ctiveMethocarbamol 500 MGTAKE 1.5 TABLETS BY MOUTH EVERY 6 HRS FOR 30 DAYS; Duration: 30ActiveMetoclopramide HCl 10 MG1 tablet before meals Orally achs; Duration: 30 days08/07/2024tive Hydrocortisone 10 MG1 tablet with food or milk Orally once a dayPRN- Injection ActivehydrOXYzine HCl 50 MG1 tablet Orally Once a day at bedtime; Duration: 30 daysActiveLancets 30G -Use 1 lancet E11.9 once daily; Duration: ActiveFreeStyle Hunter 3 ReaderUse to monitor glucose levels multiple times daily DX Diabetes with hypoglycemic episodes; Duration: 365 days10/14/2023ctive Vital Signs Weight 179 lbs 01/01/2025 Height 66 in 01/01/2025 Blood pressure systolic 102 mm Hg 01/02/20 25 Blood pressure diastolic 68 mm Hg 025 BMI 28.89 kg/m2 01/01/2025 Encounters Encounter Location Date Provider Diagnosis [address] [address] 01/01/2025 Brandyn Rosenthalkatarina GERD (gastroesophage al reflux disease) K21.9 ; IBS (irritable bowel syndrome) K58.9 ; Severe protein-calorie malnutrition E43 and PEG (percutaneous endoscopic gastrostomy) status Z93.1 Assessments Encounter Date Diagnosis (ICD Code) Assessment Notes Treatment Notes Treatment Clinical Notes Section Notes 01/01/2025 GERD (gastroesophageal reflux di sease) (ICD-10 - K21.9) 01/01/2025IBS (irritable bowel syndrome) (ICD-10 - K58.9)01/01/2025Severe protein-calorie malnutrition (ICD-10 - E43)01/01/2025PEG (percutaneous endoscopic gastrostomy) status (ICD-10 - Z93.1) Plan Of Treatment Medication Medication Name Sig Start Date Stop Date Notes traMADol HCl 50 MG 1 tablet as needed Orally qid; Dura tion: 30 days 01/01/2025 PRNHYDROcodone-Acetaminophen 5-325 MG1 - 2 tablet as needed - max 6/day Orally every 6 hrs; Duration: 30 days01/01/2025K56.600 Progress Notes * Abbey KONG MDOB:1990 (34 yo F)Acc No.[id number]:01/01/2025 Progress Note Patient: Abbey OSBORNE :?Thomas Lesli Rosenthalkatarina ([facility]), MDDOB:1990???Age: 34 Y???Sex:FemaleDate:01/01/2025Phone:[phone]:[address] [place] [address], [facility]Atlsy In:10:07 AM ESTCheck Out:11:16 AM EST Subjective: * Chief Complaints: * P resents to office alone for f/o from [facility] for bowel obstruction. Said they removed adhesion, repaired hole in intestine and untwisted bowel * HPI: ???General:? Had bowel obstruction-? has small hole in intesteines wher pouch was - had surgery no gomez ein nmeds Seeing GI in [place] in next month Looking into switching to GI in [place] - transitioning away from [facility] looking itn? diff med for motility - ?domperidone. * ROS: ???EENT:?hearing changes?denies.?visual changes?denies. non-healing mouth [...] * Active Problem List J45.909 Asthma Modified On:06/23/2023U Status:gjaadvemxA28.9GERD (gastroesophageal reflux disease) Modified On:06/23/2023U Status:fxhpqfibaL93.9Hypothyroidism Modified On:06/23/2023U Status:tlgppgobrC48.9Anxiety Modified On:06/23/2023U Status:ckcyyguafX57.909Migraine Modified On:06/23/2023U Status:khomidglxB37.9IBS (irritable bowel syndrome) Modified On:06/23/2023U Status:mowmkexkaL94.2Hypoglycemia Modified On:06/23/2023 Status:qqwbkurywJ93Mghfkz protein-calorie malnutrition Modified On:06/30/2023 Status:sbgnvfqprS35.1PEG (percutaneous endoscopic gastrostomy) status Modified On:06/30/2023 Status:ttehgqifiR81.9Acquired hypothyroidism Modified On:06/30/2023U Status:knpmenxvnQ32.1GAD (generalized anxiety disorder) Modified On:06/30/2023 Status:bersudtdkH19.1Gastrostomy in [address] Modified On:07/21/2023 Status:zmurbadiqZ71.10Allergic conjunctivitis Modified On:08/23/2023 Status:chqocltlqW47.0Facial edema Modified On:08/23/2023 Status:tntpholxwB78.9Neutropenia Modified On:09/27/2023 Status:ypjdnbbvpG06.0Moderate malnutrition Modified On:09/27/2023 Status:kzpplkkmnU60.600Partial intestinal obstruction, unspecified as to cause Modified On:09/29/2023 Status:vqxhmxvyqO70.4Jejunostomy tube present Modified On:11/24/2023 Status:bmfmbacosZ25.1Postgastric surgery syndromes Modified On:01/03/2024 Status:dfmyopqhnF40.9Low testosterone level in female Modified On:01/25/2024 Status:dpilkhrlrM34.1Feeding by G-tube Modified On:04/17/2024 Status:xbpmcriarB11.9Anxiety disorder Modified On:04/17/2024U Status:bsukueusiA65.16Lumbar radiculopathy Modified On:04/17/2024U Status:vwdwhwpetB20.84Gastroparesis Modified On:04/17/2024 Status:hgvwtrjduE38.829Elevated white blood cell count Modified On:08/10/2024U Status:ygdrqcomhX95.9Sepsis Modified On:09/11/2024U Status:habosscbjG46.10CAD (coronary artery disease) Modified On:09/30/2025W/U Status:ytypwwvtqC52.4NSTEMI (non-ST elevation myocardial infarction) Modified On:12/08/2024W/U Status:hzaomhjajO79.34Nocturnal hypoxemia Modified On:12/11/2024/U Status:swlnwwqglY16.89Respiratory depression Modified On:12/11/2024/U Status:confirmed * Medical History: * Surgical History: G astric bypass ESAREAN DELIVERYx3 APPENDECTOMY CHOLECYSTECTOMY MALS Surgery 02/2023J Tube removal 2024Port Replacement 2024Hematoma Surgery oronary Angiography, US LAD, iFR- [facility] Cardio 12/06/2024untwisted bowel, repair of hole in intestine and removal of Adhesions 12/09 * Hospitalization/Major Diagno stic Procedure: s ee above- [facility], [place] TB- malnutrition, DM 06/2023[facility] [place]oglycemia 1124Hypoglycemia/ Bowel Obstruction 02/07Sepsis roken Port/ Bacteremia 09/2024Heart Attack- [facility] hest Pain 11/2024[facility]- bowel obstruction 1025 * Medications: T akingAspirin 81 MG Tablet Chewable 1 tablet Orally Once a day Aiszzupbhb-JGOU-Srpojktq 50-325-40 MG Tablet TAKE 1 TABLET BY MOUTH EVERY 4 HOURS NEEDED FOR HEADACHE , Notes to Pharmacist: PRNColchicine 0.6 MG Tablet 1/2 tablet Oral every other day Compazine 10 MG Tablet 1 tablet as needed Orally Three times a day Doxycycline Monohydrate 100 MG Tablet 1 tablet Orally bid fentaNYL 25 MCG/HR Patch 72 Hour 1 patch to skin Transdermal Q 3 days K56.600fentaNYL 12 MCG/HR Patch 72 Hour 1 patch to skin Transdermal Q3d with a 25mcg patchFerrous Sulfate 325 (65 Fe) MG Tablet 1 tablet Orally weekly FreeStyle Hunter 3 Plus Sensor(Continuous Glucose Sensor) - Miscellaneous USE TO MONITOR GLUCOSE CHANGE ONCE EVERY 15 DAYS FreeStyle Hunter 3 [place] Use to monitor glucose levels multiple times daily DX Diabetes with hypoglycemic episodes HYDROcodone-Acetaminophen 5-325 MG Tablet 1 - 2 [...] MG Tablet Extended Release 24 Hour Oral Nitroglycerin 0.4 MG Tablet Sublingual 1 sl Sublingual Q 5 min as needed for chest pain Ondansetron 4 MG Tablet Disintegrating 1-2 tablet on the tongue and allow to dissolve Orally q4h As neededOneToIris's Coffee and Tea Room 2(Blood Glucose Monitoring Suppl) w/Device Kit USE TO MONITOR BLOOD GLUCOSE LEVELS DAILY Oxygen Use 2Liters of continuous oxygen at HS per oxygen concentrator DX Nocturnal hypoxia d/t respiratory depression Plavix(Clopidogrel Bisulfate) 75 MG Tablet 1 tablet Orally Once a day Promethazine HCl 25 MG Tablet 1 tablet Orally 4 times a day- PRN Prucalopride Succinate 2 MG Tablet 1 tablet Orally Once a day Ranolazine ER 500 MG Tablet [...] 100 MG Tablet 1 tablet Orally bedtime Verapamil HCl 40 MG Tablet 1 tablet Oral every 8 hours Taking Aspirin 81 MG Tablet Chewable 1 tablet Orally Once a day Taking Wbccruomnw-VPCV-Ahovgssl 50-325-40 MG Tablet TAKE 1 TABLET BY MOUTH EVERY 4 HOURS NEEDED FOR HEADACHE , Notes to Pharmacist: PRNTaking Colchicine 0.6 MG Tablet 1/2 tablet Oral every other day Taking Compazine 10 MG Tablet 1 tablet as needed Orally Three times a day Taking Doxycycline Monohydrate 100 MG Tablet 1 tablet Orally bid Taking fentaNYL 25 MCG/HR Patch 72 Hour 1 patch to skin Transdermal Q 3 days K56.600Taking fentaNYL 12 MCG/HR Patch 72 Hour 1 patch to skin Transdermal Q3d with a 25mcg patchTaking Ferrous Sulfate 325 (65 Fe) MG Tablet 1 tablet Orally weekly Taking FreeStyle Hunter 3 Plus Sensor(Continuous Glucose Sensor) - Miscellaneous USE TO MONITOR GLUCOSE CHANGE ONCE EVERY 15 DAYS Taking FreeStyle Hunter 3 [place] Use to monitor glucose levels multiple times [...] Tablet Extended Release 24 Hour Oral Taking Nitroglycerin 0.4 MG Tablet Sublingual 1 sl Sublingual Q 5 min as needed for chest pain Taking Ondansetron 4 MG Tablet Disintegrating 1-2 tablet on the tongue and allow to dissolve Orally q4h As neededTaking Unified Office 2(Blood Glucose Monitoring Suppl) w/Device Kit USE TO MONITOR BLOOD GLUCOSE LEVELS DAILY Taking Oxygen Use 2Liters of continuous oxygen at HS per oxygen concentrator DX Nocturnal hypoxia d/t respiratory depression Taking Plavix(Clopidogrel Bisulfate) 75 MG Tablet 1 tablet Orally Once a day Taking Promethazine HCl 25 MG Tablet 1 tablet Orally 4 times a day- PRN Taking Prucalopride Succinate 2 MG Tablet 1 tablet Orally Once a day Taking Ranolazine ER 500 MG [...] MG Tablet 1 tablet Orally bedtime Taking Verapamil HCl 40 MG Tablet 1 tablet Oral every 8 hours DiscontinuedCiprofloxacin HCl 500 MG Tablet 1 tablet Orally every 12 hrs Pyridium(Phenazopyridine HCl) 200 MG Tablet 1 tablet after meals Orally Three times a day Triamcinolone Acetonide 0.1 % Cream 1 application Externally bid Medication List reviewed and reconciled with the patientDiscontinued Ciprofloxacin HCl 500 MG Tablet 1 tablet Orally every 12 hrs Discontinued Pyridium(Phenazopyridine HCl) 200 MG Tablet 1 tablet after meals Orally Three times a day Discontinued Triamcinolone Acetonide 0.1 % Cream 1 application Externally bid Medication List reviewed and reconciled with the patient * Allergies: C odeine: vomiting - AllergyNSAIDs: Gastric bypass - Contraindicationno[Allergies Verified] Objective: * Vitals: W t:179lbs, Ht: 66 in, BP:102/68mm Hg, BMI:28.89Index, Ht-cm: 167.64 cm, Wt-k.19 kg. * Examination: ???Physical Exam: ?GENERAL:?well developed, [...] normal mood and affect.? Assessment: * Assessment: 1.?GERD (gastroesophageal reflux disease) - K21.9 (Primary)???2.?IBS (irritable bowel syndrome) - K58.9???3.?Severe protein-calorie malnutrition - E43&#160 ;??4.?PEG (percutaneous endoscopic gastrostomy) status - Z93.1??? Plan: * Treatment: Refill traMADol HCl Tablet, 50 MG, 1 tablet as needed, Orally, qid As needed, 30 days, 120 Tablet, Refills 0, Notes to Pharmacist: PRN;?Refill HYDROcodone- Acetaminophen Tablet, 5-325 MG, 1 - 2 tablet as needed - max 6/day, Orally, every 6 hrs K56.600, 30 days, 180, Refills 0, Notes to Pharmacist: K56.600.?? * Procedure Codes: * Preventive Medicine: ??Screenings/Counseling:?BMI ACTION PLAN?Above Normal BMI Follow-up?Dietary management education, guidance, and counseling See treatment section of progress note for complete details of management plan. * * Sign off status: CompletedVisit Status:?CHK (Check Out) true * Provider: Du Alas ([facility])MD Date: 1 03/03/2024 Generated for Printing/FaMicromidasg/eTransmitting on:?01/09/2025 12:15 PM EST History and Physical Notes * HPI (History of Present Illness) CategorySub-CategoryDetailNotesCategory NotesGeneral Had bowel obstruction- has small hole in intesteines wher pouch was - had surgery no gomez ein nmeds Seeing GI in [place] in next month Looking into switching to GI in [place] - transitioning away from [facility] looking itn diff med for motility - ?domperidone Examination CategorySub-CategoryDetailNotesCategory NotesPhysical ExamGENERAL:well developed, well nourished, [...]
[2025-01-09 10:58] VITALS: BP 108/81; PULSE 89; TEMP 36.6; O2SAT 100; BMI 28.7
--- NOTE | 2025-01-09 11:07 | CT_ITS ---
The [address] [address] Patient Name: JUAN KONG MRN: [id number] date: 1990 Sex: F Assigned Patient Location: ER Current Patient Location: .[facility] Accession/Order Number: [id number] Exam Date: 01/09/2025 11:53 Report Date: 01/09/2025 12:19 At the request of: LESLIE TERRAZAS MD Procedure: CT abdomen pelvis w con CT ABDOMEN AND PELVIS WITH CONTRAST COMPARISON: 12/27/2024 CLINICAL DATA: Abdominal pain with nausea and vomiting. Constipation. History of small bowel obstruction. Spiral images were obtained through the abdomen and pelvis following 100 mL of Omnipaque 300. This CT exam was performed using one or more following dose reduction techniques: Automated exposure control, adjustment of the mA and/or kV according to patient size, or use of iterative reconstruction technique. Limited cuts through the lung bases show minor dependent atelectasis. Multiple small scattered hepatic hypodensities are again seen suggesting cysts. The gallbladder surgically absent. There is slight biliary prominence. No common duct stones are noted. The spleen, pancreas and adrenal glands show no acute findings. There are symmetric renal nephrograms, without hydronephrosis. A potential punctate stone is again seen at the lower pole right kidney. The abdominal aorta is normal caliber. No enlarged lymph nodes or ascites are seen. There are postoperative changes of bariatric surgery. The small bowel loops show no significant distention however there are loops containing air. There is air and stool along the colon. The bony structures are intact. Images through the pelvis show nondistended small bowel. There is prior appendectomy. There is stool at the cecum and air and stool at the distal colon. No diverticular disease is noted. The uterus is surgically absent. Urinary bladder shows no CT abnormalities. No ascites is seen. CT/CT abdomen pelvis w con IMPRESSION: HEPATIC CYSTS. MILD BILIARY PROMINENCE WHICH IS LIKELY SECONDARY TO PREVIOUS CHOLECYSTECTOMY. NO OBSTRUCTIVE UROPATHY. NO EVIDENCE OF BOWEL OBSTRUCTION. MILD TO MODERATE COLONIC STOOL. Impression dictated by: Maricruz Hutchinson M.D. 01/09/2025 12:19 PM Dictation Location: [place] [address] Electronically authenticated by: [id number] Y Date: 01/09/2025 12:19
--- NOTE | 2025-01-09 11:08 | ED.GENADUL1 ---
HPI HPI - General Adult General Chief complaint: Abdominal Pain Stated complaint: nausea/vomiting, abdominal pain Time Seen by Provider: 01/09/25 10:52 Source: patient Mode of arrival: walk-in History of Present Illness HPI narrative: 34-year-old female presents to the emergency department for abdominal pain. She is worried about a small bowel obstruction. She had surgery a few weeks ago in [place] for bowel obstruction. No fever or hematemesis. No diarrhea or trauma. The pain is severe and continuous Related Data Home Medications ?Medication ?Instructions ?Recorded ?Confirmed hydroxyzine HCl 25 mg tablet 25 mg PO BID PRN anxiety 09/17/22 12/08/24 topiramate 100 mg tablet 100 mg PO BID 09/17/22 12/08/24 metoclopramide HCl 10 mg tablet 10 mg PO BID PRN nausea and 06/14/23 12/08/24 vomiting escitalopram oxalate 20 mg tablet 20 mg PO DAILY 06/15/23 12/08/24 levothyroxine 75 mcg tablet 75 mcg PO DAILY 06/15/23 12/08/24 acetaminophen 325 mg tablet (Pain 650 mg PO Q4H PRN pain 06/24/23 12/08/24 Relief (acetaminophen)) blood sugar diagnostic ([facility] 03/29/24 12/08/24 Ultra Test strips) blood-glucose meter ([facility] 03/29/24 12/08/24 Ultra2 Meter) blood-glucose sensor (FreeStyle 03/29/24 12/08/24 Hunter 3 Plus Sensor device) fentanyl 25 mcg/hr transdermal 1 patch transdermal Q72H 03/29/24 12/08/24 patch hydrocodone 5 mg-acetaminophen 325 1 tab PO Q6H PRN pain 03/29/24 12/08/24 mg tablet lancets 30 gauge (OneTouch Delica 03/29/24 12/08/24 Plus Lancet) pen needle, diabetic 32 gauge x 03/29/24 12/08/24 (BD Stefania 2nd Gen Pen Needle) prucalopride 2 mg tablet 2 mg PO DAILY 03/29/24 12/08/24 trazodone 100 mg tablet 100 mg PO .qhs 03/29/24 12/08/24 ergocalciferol (vitamin D2) 1,250 1,250 mcg PO .Q7 06/21/24 12/08/24 mcg (50,000 unit) capsule mirtazapine 45 mg tablet 45 mg PO BEDTIME 08/16/24 12/08/24 aspirin 81 mg chewable tablet 1 tab PO .qd 11/19/24 12/08/24 clopidogrel 75 mg tablet 75 mg PO .qd 11/19/24 12/08/24 colchicine 0.6 mg tablet 0.3 mg PO .qod 11/19/24 12/08/24 fentanyl 12 mcg/hr transdermal 1 patch transdermal Q72H 11/19/24 12/08/24 patch methocarbamol 500 mg tablet 750 mg PO Q6H PRN Muscle spasm 11/19/24 12/08/24 metoprolol succinate 25 mg 25 mg PO .qd 11/19/24 12/08/24 tablet,extended release 24 hr ranolazine 500 mg tablet,extended 500 mg PO Q12H 11/19/24 12/08/24 release,12 hr rosuvastatin 40 mg tablet 40 mg PO .qhs 11/19/24 12/08/24 verapamil 40 mg tablet 40 mg PO Q8H 11/19/24 12/08/24 Previous Rx's ?Medication ?Instructions ?Recorded meloxicam 7.5 mg tablet 7.5 mg PO DAILY PRN pain #3 tabs 11/30/24 nitrofurantoin 100 mg PO BID 7 days #14 caps 12/11/24 monohydrate/macrocrystals 100 mg capsule (Macrobid) Allergies Allergy/AdvReac Type Severity Reaction Status Date / Time adhesive Allergy Rash Verified 01/09/25 10:58 NSAIDS (Non-Steroidal Allergy intolerance Verified 01/09/25 10:58 Anti-Inflamma codeine AdvReac Vomiting Verified 01/09/25 10:58 Opioid HPI Opioid Management Most Recent Opioid Data: Last Pain Scale 9 Today, 10:58 Last ORT Total Score 1 11/19/24, 15:40 Last ORT Risk Category Low Risk 11/19/24, 15:40 Ur Phencyclidine Scrn, (NEGATIVE) Negative 08/28/24, 14:10 Review of Systems ROS Narrative A ten point review of systems is negative except as noted above. [facility] Medical History (Updated 01/09/25 @ 12:33 by Reji Damon MD) Coronary artery dissection ?I25.42 - Coronary artery dissection (ICD-10) Hypoglycemia ?E16.2 - Hypoglycemia, unspecified (ICD-10) Gastroenteritis ?K52.9 - Noninfective gastroenteritis and colitis, unspecified (ICD-10) Feeding by G-tube ?Z93.1 - Gastrostomy status (ICD-10) Abdominal pain ?R10.9 - Unspecified abdominal pain (ICD-10) Small bowel intussusception ?K56.1 - Intussusception (ICD-10) Nausea and vomiting ?R11.2 - Nausea with vomiting, unspecified (ICD-10) Flank pain ?R10.9 - Unspecified abdominal pain (ICD-10) Abdominal pain ?R10.9 - Unspecified abdominal pain (ICD-10) Acute abdomen ?R10.0 - Acute abdomen (ICD-10) Intractable nausea and vomiting ?R11.2 - Nausea with vomiting, unspecified (ICD-10) Intractable abdominal pain ?R10.9 - Unspecified abdominal pain (ICD-10) Depression ?F32.A - Depression, unspecified (ICD-10) Asthma ?J45.909 - Unspecified asthma, uncomplicated (ICD-10) Dyspareunia Pelvic pain ?R10.2 - Pelvic and perineal pain (ICD-10) Ovarian cyst ?N83.209 - Unspecified ovarian cyst, unspecified side (ICD-10) PONV (postoperative nausea and vomiting) ?R11.2 - Nausea with vomiting, unspecified (ICD-10) ?Z98.890 - Other specified postprocedural states (ICD-10) PCOS (polycystic ovarian syndrome) ?E28.2 - Polycystic ovarian syndrome (ICD-10) Hypothyroidism (acquired) ?E03.9 - Hypothyroidism, unspecified (ICD-10) Anxiety ?F41.9 - Anxiety disorder, unspecified (ICD-10) GERD (gastroesophageal reflux disease) ?K21.9 - Gastro-esophageal reflux disease without esophagitis (ICD-10) Sleep apnea ?G47.30 - Sleep apnea, unspecified (ICD-10) Anemia ?D64.9 - Anemia, unspecified (ICD-10) Fibromyalgia ?M79.7 - Fibromyalgia (ICD-10) Syncope (07/07/13) ?R55 - Syncope and collapse (ICD-10) Shingles ?B02.9 - Zoster without complications (ICD-10) Headache ?R51.9 - Headache, unspecified (ICD-10) Migraine ?G43.909 - Migraine, unspecified, not intractable, without status migrainosus (ICD-10) Mechanical ileus (01/31/20) ?K56.609 - Unspecified intestinal obstruction, unspecified as to partial versus complete obstruction (ICD-10) COVID-19 (~02/2020) ?U07.1 - COVID-19 (ICD-10) Kidney stones ?N20.0 - Calculus of kidney (ICD-10) Surgical History S/P percutaneous endoscopic gastrostomy (PEG) tube placement ?Z93.1 - Gastrostomy status (ICD-10) 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 - Celiac artery compression syndrome (ICD-10) H/O shoulder surgery (2022) ?Z98.890 - Other specified postprocedural states (ICD-10) History of hip surgery ?Z98.890 - Other specified postprocedural states (ICD-10) S/P right knee arthroscopy ?Z98.890 - Other specified postprocedural states (ICD-10) S/P left knee arthroscopy ?Z98.890 - Other specified postprocedural states (ICD-10) Hx of tonsillectomy ?Z90.89 - Acquired absence of other organs (ICD-10) History of thoracic surgery (~2021) ?Z98.890 - Other specified postprocedural states (ICD-10) History of esophagogastroduodenoscopy (EGD) (10/04/13) ?Z98.890 - Other specified postprocedural states (ICD-10) History of cholecystectomy (10/06/13) ?Z90.49 - Acquired absence of other specified parts of digestive tract (ICD-10) Delivery by section (~2016) Delivery by section (01/17/18) H/O colonoscopy (~2018) ?Z98.890 - Other specified postprocedural states (ICD-10) S/P right knee arthroscopy (07/21/18) ?Z98.890 - Other specified postprocedural states (ICD-10) Delivery by section (06/19/19) History of appendectomy (09/25/19) ?Z90.49 - Acquired absence of other specified parts of digestive tract (ICD-10) H/O laparoscopy (11/10/19) ?Z98.890 - Other specified postprocedural states (ICD-10) History of liver biopsy (~04/2020) ?Z98.890 - Other specified postprocedural states (ICD-10) H/O laparoscopy (07/18/20) ?Z98.890 - Other specified postprocedural states (ICD-10) H/O arthroscopy of right knee (08/07/20) ?Z98.890 - Other specified postprocedural states (ICD-10) S/P laparoscopic sleeve gastrectomy (09/03/20) ?Z98.84 - Bariatric surgery status (ICD-10) H/O: hysterectomy (11/12/20) ?Z90.710 - Acquired absence of both cervix and uterus (ICD-10) History of hernia repair (03/20/21) ?Z98.890 - Other specified postprocedural states (ICD-10) ?Z87.19 - Personal history of other diseases of the digestive system (ICD-10) Family History Other Family history of cancer Family history of diabetes mellitus Family history of hypertension Family history of myocardial infarction PONV (postoperative nausea and vomiting) Social History Within the past year, how often did you have a drink containing alcohol: never Score interpretation: A score less than 3 is consistent with normal alcohol consumption. Smoking status: Never smoker Non-prescribed substance use: denies use Previous occupational history: disabled Known occupational exposures/hazards details: disabled Highest level of school completed/degree received: Master's degree Are you now , , , , never or living with a partner: In a typical week, how many times do you talk on the telephone with family, friends, or neighbors: 3 or more times per week How often do you get together with friends or relatives: twice per week How often do you attend quaker or orthodoxy services: 4 or more times per year Do you belong to any clubs or organizations such as quaker groups unions, fraternal or athletic groups, or school groups: no Total score: 3 Score interpretation: A score of greater than or equal to 2 indicates the lowest level of social isolation. Little interest or pleasure in doing things: not at all Feeling down, depressed, or hopeless: not at all Feel stressed/tense/nervous/anxious/difficulty sleeping: to some extent Do you think of yourself as: straight/heterosexual Gender Identity: female Exam Narrative Exam Narrative: Nurses note and vital signs reviewed General:The patient appears in no apparent distress.Patient is resting comfortably on cart. Skin:Warm, dry, no pallor noted.There is no rash noted. Head:Normocephalic, atraumatic Eye: Normal conjunctiva, no drainage Ears, Nose, Mouth, and Throat: oral mucosa is moist. Nares patent. Cardiovascular:Regular Rate and Rhythm Respiratory:Patient is in no distress, no accessory muscle use, lungs are clear to auscultation, no wheezing, rales or rhonchi Back:non-tender GI: Soft and nondistended Musculoskeletal: The patient has no evidence of calf tenderness, no pitting edema, symmetrical pulses noted bilaterally Neurological:A&O, normal speech Psychiatric:Cooperative Constitutional Vital Signs, click to edit/add: Last Vital Signs Temp 97.9 F 01/09/25 10:58 Pulse 89 01/09/25 10:58 Resp 16 01/09/25 10:58 BP 108/81 01/09/25 10:58 Pulse Ox 97 01/09/25 11:52 O2 Del Method Room Air 01/09/25 11:52 Course Vital Signs Vital signs: Vital Signs Temperature 97.9 F 01/09/25 10:58 Pulse Rate 89 01/09/25 10:58 Respiratory Rate 16 01/09/25 10:58 Blood Pressure 108/81 01/09/25 10:58 Pulse Oximetry 100 01/09/25 10:58 Oxygen Delivery Method Room Air 01/09/25 10:58 Temperature 97.9 F 01/09/25 10:58 Pulse Rate 89 01/09/25 10:58 Respiratory Rate 16 01/09/25 10:58 Blood Pressure 108/81 01/09/25 10:58 Pulse Oximetry 97 01/09/25 11:52 Oxygen Delivery Method Room Air 01/09/25 11:52 Medical Decision Making MDM Narrative Medical decision making narrative: CT scan is consistent with constipation. No acute findings otherwise. Blood work essentially normal. She was recommended MiraLAX and discharged home. Treatment diagnosis and follow-up were discussed with the patient. Differential Diagnosis Differential Diagnosis: Constipation, bowel obstruction, ileus Lab Data Lab results reviewed: Yes I reviewed the patient's lab results Labs: Lab Results 01/09/25 Range/Units 11:10 WBC 2.4 L (4.0-11.0) 10^3/uL RBC 3.58 L (4.20-5.40) 10^6/uL Hgb 11.0 L (12.0-16.0) g/dL Hct 33.7 L (36.0-48.0) % MCV 94.1 (81.0-99.0) fL MCH 30.7 (26.7-34.0) pg MCHC 32.6 (29.9-35.2) g/dL RDW 15.6 H (11.0-15.0) % Plt Count 151 (150-450) 10^3/uL MPV 11.5 (9.5-13.5) fL Seg Neuts % (Manual) 60.0 (43.0-75.0) Lymphocytes % (Manual) 32.0 (20.5-60.0) % Monocytes % (Manual) 6.0 (1.7-12.0) % Eosinophils % (Manual) 2.0 (0.9-7.0) % Basophils % (Manual) 0.0 L (0.2-2.0) % Neutrophils # (Manual) 1.44 (1.4-6.5) 10^3/uL Lymphocytes # (Manual) 0.76 L (1.20-3.80) 10^3/uL Monocytes # (Manual) 0.14 L (0.30-0.80) 10^3/uL Eosinophils # (Manual) 0.04 (0.00-0.70) 10^3/uL Basophils # (Manual) 0.00 (0.00-0.10) 10^3/uL Sodium 143 (136-145) mmol/L Potassium 3.9 (3.5-5.1) mmol/L Chloride 110 H (98-107) mmol/L Carbon Dioxide 23.6 (21.0-32.0) mmol/L Anion Gap 13.3 BUN 7.0 (7.0-18.0) mg/dL Creatinine 0.69 (0.55-1.02) mg/dL Est GFR ( Amer) >60 (>=60 mL/min/1.73m^2) Est GFR (Non-Af Amer) >60 (>=60 mL/min/1.73m^2) BUN/Creatinine Ratio 10.1 Glucose 52 L (74-106) mg/dL Calcium 8.0 L (8.5-10.1) mg/dL Total Bilirubin 0.3 (0.2-1.0) mg/dL Direct Bilirubin 0.1 (0.0-0.2) mg/dL AST 26 (15-37) U/L ALT 28 (14-59) U/L Alkaline Phosphatase 79 (46-116) U/L Total Protein 6.2 L (6.4-8.2) g/dL Albumin 3.4 (3.4-5.0) g/dL Globulin 2.8 g/dL Albumin/Globulin Ratio 1.2 Amylase 33 (25-115) U/L Lipase 39.0 (16.0-77.0) U/L Imaging Data CT scan - abdomen: Radiologist's impression: ITS Impressions Abdomen/Pelvis CT 01/09/25 11:07 IMPRESSION: HEPATIC CYSTS. MILD BILIARY PROMINENCE WHICH IS LIKELY SECONDARY TO PREVIOUS CHOLECYSTECTOMY. NO OBSTRUCTIVE UROPATHY. NO EVIDENCE OF BOWEL OBSTRUCTION. MILD TO MODERATE COLONIC STOOL. Impression dictated by: Maricruz Hutchinson M.D. 01/09/2025 12:19 PM Dictation Location: [place] [address] Electronically authenticated by: [id number] Y Date: 01/09/2025 12:19 Discharge Plan Discharge Chief Complaint: Abdominal Pain Clinical Impression: Constipation Patient Disposition: Home, Self-Care Time of Disposition Decision: 12:32 Condition: Good Mode of Transportation: Private Vehicle Prescriptions / Home Meds: No Action (DME) blood-glucose meter [OneTouch Ultra2 Meter] Misc MISCELLANEOUS (DME) OneTouch Ultra Test Strip MISCELLANEOUS fentanyl 25 mcg/hr patch 72 hour 1 patch transdermal Q72H (DME) FreeStyle Hunter 3 Plus Sensor Device MISCELLANEOUS hydrocodone-acetaminophen 5-325 mg tablet 1 tab PO Q6H PRN (Reason: pain) (DME) lancets [OneTouch Delica Plus Lancet] 30 gauge misc MISCELLANEOUS (DME) pen needle, diabetic [BD Stefania 2nd Gen Pen Needle] 32 gauge x 5/32 needle MISCELLANEOUS prucalopride 2 mg tablet 2 mg PO DAILY trazodone 100 mg tablet 100 mg PO .qhs mirtazapine 45 mg tablet 45 mg PO BEDTIME aspirin 81 mg tablet,chewable 1 tab PO .qd Rx Instructions: with breakfast clopidogrel 75 mg tablet 75 mg PO .qd colchicine 0.6 mg tablet 0.3 mg PO .qod fentanyl 12 mcg/hr patch 72 hour 1 patch transdermal Q72H metoprolol succinate 25 mg tablet extended release 24 hr 25 mg PO .qd ranolazine 500 mg tablet extended release 12 hr 500 mg PO Q12H rosuvastatin 40 mg tablet 40 mg PO .qhs verapamil 40 mg tablet 40 mg PO Q8H methocarbamol 500 mg tablet 750 mg PO Q6H PRN (Reason: Muscle spasm) nitrofurantoin monohyd/m-cryst [Macrobid] 100 mg capsule 100 mg PO BID 7 Days Qty: 14 0RF Rx Instructions: must administer with a meal/food hydroxyzine HCl 25 mg tablet 25 mg PO BID PRN (Reason: anxiety) topiramate 100 mg tablet 100 mg PO BID metoclopramide HCl 10 mg tablet 10 mg PO BID PRN (Reason: nausea and vomiting) levothyroxine 75 mcg tablet 75 mcg PO DAILY escitalopram oxalate 20 mg tablet 20 mg PO DAILY acetaminophen [Pain Relief (acetaminophen)] 325 mg tablet 650 mg PO Q4H PRN (Reason: pain) ergocalciferol (vitamin D2) 1,250 mcg (50,000 unit) capsule 1,250 mcg PO .Q7 meloxicam 7.5 mg tablet 7.5 mg PO DAILY PRN (Reason: pain) Qty: 3 0RF Rx Instructions: please take with food Print Language: Icelandic Instructions: Constipation (ED) Additional Instructions: [id number] MiraLAX for constipation. Referrals: Thomas Alas MD [Primary Care Provider, Family Practice] - 1 week
[2025-01-09 11:20] LABS: Hematocrit 33.7 % (36.0-48.0); Hemoglobin 11.0 g/dL (12.0-16.0); Mean Corpuscular HGB Conc 32.6 g/dL (29.9-35.2); Mean Corpuscular Hemoglobin 30.7 pg (26.7-34.0); Mean Corpuscular Volume 94.1 fL (81.0-99.0); Platelet Count 151 10^3/uL (150-450); Red Blood Count 3.58 10^6/uL (4.20-5.40); White Blood Count 2.4 10^3/uL (4.0-11.0)
[2025-01-09 11:38] LABS: Alanine Aminotransferase 28 U/L (14-59); Albumin Globulin Ratio 1.2; Albumin Level 3.4 g/dL (3.4-5.0); Alkaline Phosphatase 79 U/L (46-116); Amylase 33 U/L (25-115); Anion Gap 13.3; Aspartate Amino Transferase 26 U/L (15-37); Blood Urea Nitrogen 7.0 mg/dL (7.0-18.0); Calcium 8.0 mg/dL (8.5-10.1); Carbon Dioxide 23.6 mmol/L (21.0-32.0); Chloride 110 mmol/L (98-107); Estimated GFR (African America >60 (>=60 mL/min/1.73m^2); Estimated GFR (Non-African Ame >60 (>=60 mL/min/1.73m^2); Globulin 2.8 g/dL; Glucose 52 mg/dL (74-106); Lipase 39.0 U/L (16.0-77.0); Potassium 3.9 mmol/L (3.5-5.1); Sodium 143 mmol/L (136-145); Total Protein 6.2 g/dL (6.4-8.2)
[2025-01-09] MEDS: 0.9 % SODIUM CHLORIDE 1,000 ML 1000 ML IV (11:46)
[2025-01-09 11:52] VITALS: O2SAT 97
--- NOTE | 2025-01-09 11:56 | PC.NURSE ---
pt to imaging at this time with Braille Transcriber via wheelchair.
[2025-01-09 12:06] LABS: Segmented Neut Absolute Manual 1.44 10^3/uL (1.4-6.5); Segmented Neutrophils % Manual 60.0 (43.0-75.0)
[2025-01-09 12:07] LABS: Basophils Abs Manual 0.00 10^3/uL (0.00-0.10); Basophils Percent Manual 0.0 % (0.2-2.0); Eosinophils Absolute Manual 0.04 10^3/uL (0.00-0.70); Eosinophils Percent Manual 2.0 % (0.9-7.0); Lymphocytes Absolute Manual 0.76 10^3/uL (1.20-3.80); Lymphocytes Percent Manual 32.0 % (20.5-60.0); Monocytes Absolute Manual 0.14 10^3/uL (0.30-0.80); Monocytes Percent Manual 6.0 % (1.7-12.0)
--- OUTSIDE RECORDS SUMMARY | 2025-01-09 12:14 | XMS_ITS | Encounter Summary ---
Author Organization [facility] Address [address] [place] [address] Care Team Providers Care Support Worker Name Role Phone Thomas Alas MD Primary Care Provider [phone] Vicky Cardenas RN Unavailable Unavailable Encounter Details DateTypeDepartmentCare Team (Latest Contact Info)Yhhwyfdpzki08/20/2025Patient Outreach Value Based Care [address] [place] [phone] Vicky Cardenas, DEE Social History Tobacco UseTypesPacks/DayYears UsedDateSmoking Tobacco: NeverSmokeless Tobacco: NeverAlcohol UseStandard Drinks/WeekCommentsNot Currently0 (1 standard drink = 0.6 oz pure alcohol)[facility] UtilitiesAnswerDate RecordedIn the past 12 months has the electric, gas, oil, or water [employer] threatened to shut off services in your home?Yes12/17/2024Overall Financial Resource Strain (CARDIA)AnswerDate Recorded How hard is it for you to pay for the very basics like food, housing, medical care, and heating?Not hard at all12/17/2024PHQ-2AnswerDate RecordedPatient Health Questionnaire-2 Gplpm40102/28/2024Humiliation, Afraid, Rape, and Kick questionnaireAnswerDate RecordedWithin the [...] homeless or living in a fpc (including now)?No12/17/2024Hunger Vital SignAnswerDate RecordedWithin the past 12 months, you worried that your food would run out before you got the money to buymore.Never true12/17/2024Ran Out of Food in the Last YearNot on file 12/17/2024CommentsNoSex and Gender InformationValueDate RecordedSex Assigned at WmlulVswmoo74/03/2025 3:45 PM EDTLegal OgcJgobjn49/30/2022 12:07 AM EDTGender KwwslgqrPvvzhx41/03/2025 3:45 PM EDTSexual OrientationHeterosexual or Uikpavda72/03/2025 3:45 PM EDTdocumented as of this encounter Progress Notes * Vicky Cardenas RN - 01/04/2025 9:36 AM EST OP DEE ROSARIO called pt's health plan to request a health plan keycase assembler. This instructional writer spoke to Ernestine who stated she sent an email to the appropriate department with an expected turn around time of 48hours with reference number #[id number]. This instructional writer requested for the assigned health plan casemanager to contact OP DEE ROSARIO once pt has been assigned a health plan CM. Provided OP DEE ROSARIO contact information. documented in this encounter Plan of Treatment DateTypeDepartmentCare Team (Latest Contact Info)Pevzfeqmfdi87/03/2025 8:15 AM ESTAppointment [facility] [place] [phone] 01/23/2025 1:00 PM ESTClinical Support [facility] [place] [phone] 01/31/2025 11:00 AM ESTOffice Visit [facility] [address] [place] [phone] [place] [phone] 06/28/2025 1:15 PM EDTFollow-Up [facility] [place] [phone] Donnie Cesar MD [place] [address] documented as of this encounter Visit Diagnoses Not on filedocumented in this encounter Care Teams Team MemberRelationshipSpecialtyStart DateEnd Date Thomas Alas MD [address] [facility] [address] [address] PCP - GeneralFamily Medicine08/17/24 Vicky Cardenas RN Case ManagerCase Eqkrgdfjob54/13/25documented as of this encounter
--- OUTSIDE RECORDS SUMMARY | 2025-01-09 12:14 | XMS_ITS | Encounter Summary ---
Author Organization [facility] Address [address] [facility] [place] [address] Care Team Providers Care Pearl Stringer Name Role Phone Thomas Alas MD Primary Care Provider [phone] Vicky Cardenas RN Unavailable Unavailable Reason for Visit * ReasonOnset DateCommentsCare Wbgadezaefvz55/13/2025 Encounter Details DateTypeDepartmentCare Team (Latest Contact Info)Fczczxtwcwp76/13/2025Patient Outreach Value Based Care [address] [place] [address] Vicky Cardenas, DEE Care Coordination Social History Tobacco UseTypesPacks/DayYears UsedDateSmoking Tobacco: NeverSmokeless Tobacco: NeverAlcohol UseStandard Drinks/WeekCommentsNot Currently0 (1 standard drink = 0.6 oz pure alcohol)[facility] UtilitiesAnswerDate RecordedIn the past 12 months has the [employer], gas, oil, or water [employer] threatened to shut off services in your home?Yes12/17/2024Overall Financial Resource Strain (CARDIA)AnswerDate Recorded How hard is it for you to pay for the very basics like food, housing, medical care, and heating?Not hard at all12/17/2024PHQ-2AnswerDate RecordedPatient Health Questionnaire-2 Pdhag71502/28/2024Humiliation, Afraid, Rape, and Kick questionnaireAnswerDate RecordedWithin the [...] 12/17/2024CommentsNoSex and Gender InformationValueDate RecordedSex Assigned at RcghjCcfveb05/03/2025 3:45 PM EDTLegal RkaPxmldb49/30/2022 12:07 AM EDTGender QphxzhlgMzseba82/03/2025 3:45 PM EDTSexual OrientationHeterosexual or Jhlxxcrg79/03/2025 3:45 PM EDTdocumented as of this encounter Progress Notes * Vicky Cardenas RN - 12/28/2024 1:01 PM EST -Length of last hospital stay in hospital: 4 days -Acute admission through the emergency department (ED): 5 @[facility] -Comorbidities: HTN, HLD, asthma, RICHAR, hypothyroidism, GERD, IBS, fibromyalgia, T2DM, recurrent GI obstructions, GI history including prior sleeve gastrectomy and celiac plexus block, chronic gastroparesis, -Emergency department visits in the past six months: 2 @[facility] -Determine readmit risk score in EPIC: 48 -Number of medications currently takin -Outpatients follow up appointments: [facility] :Patient was taken to OR for diagnostic laparoscopy, lysis of adhesions, closure of internal hernia on 12/18/24, Per AVS soft diet, f/u [facility] Gen/Surg, Discharged with [facility] for HHC, pt is followed by the [facility] for GI. Pt identified as a high ED/Inpt utilizer with 5 [facility] ED/Inpt admissions in the past 6 months. OP RNCM called patient , introduced self and explained OP Complex RN CM program. Pt is agreeable to be enrolled in the OP Specialty RN CM program. Encouraged pt to Utilize PCP when appropriate and explained the difference between Urgent Care versus the ED. Pt received her medications at the time of discharge and is aware of her [facility] Gen/Surg appointment. Pt declined assistance with PCP appointment andreviewing discharge medications. Pt requested for OP RN CM to call pt after her f/u appointment with Gen/Surg . documented in this encounter Plan of Treatment DateTypeDepartmentCare Team (Latest Contact Info)Zuyavoookcv79/03/2025 8:15 AM ESTAppointment [facility] X-Ray Imaging [address] [place], [place] [address] [address] 01/23/2025 1:00 PM ESTClinical Support [facility] Surgery Clinic [address] [place], [place] [address] [address] 01/31/2025 11:00 AM ESTOffice Visit [facility] at [facility] [address] [place] [address] Wali Collins MD [address] [place], [place] [address] [address] 06/28/2025 1:15 PM EDTFollow-Up [facility] Surgery Clinic [address] [place], [place] [address] [address] Donnie Cesar MD [address] [place], [place] [address] [address] documented as of this encounter Visit Diagnoses Not on filedocumented in this encounter Care Teams Team MemberRelationshipSpecialtyStart DateEnd Date Thomas Alas MD [address] [facility] [address] [address] PCP - GeneralFamily Medicine08/17/24 Vicky Cardenas, DEE Case ManagerCase Msombdhraj37/13/25documented as of this encounter
--- OUTSIDE RECORDS SUMMARY | 2025-01-09 12:14 | XMS_ITS | Encounter Summary ---
Author Organization [facility] Address [address] [place] [address] Care Team Providers Care Shipping/Receiving Manager Name Role Phone Thomas Alas MD Primary Care Provider [phone] Vicky Cardenas RN Unavailable Unavailable Reason for Visit * ReasonOnset DateCommentsCare Pedkmzgouztm73/19/2025 Encounter Details DateTypeDepartmentCare Team (Latest Contact Info)Orknruohweh41/19/2025Patient Outreach Value Based Care [address] [place] [address] Vicky Cardenas, DEE Care Coordination Social History Tobacco UseTypesPacks/DayYears UsedDateSmoking Tobacco: NeverSmokeless Tobacco: NeverAlcohol UseStandard Drinks/WeekCommentsNot Currently0 (1 standard drink = 0.6 oz pure alcohol)[facility] UtilitiesAnswerDate RecordedIn the past 12 months has the [employer], gas, oil, or water [employer]oxo threatened to shut off services in your home?Yes12/17/2024Overall Financial Resource Strain (CARDIA)AnswerDate Recorded How hard is it for you to pay for the very basics like food, housing, medical care, and heating?Not hard at all12/17/2024PHQ-2AnswerDate RecordedPatient Health Questionnaire-2 Yrpss45902/28/2024Humiliation, Afraid, Rape, and Kick questionnaireAnswerDate RecordedWithin the [...] 12/17/2024CommentsNoSex and Gender InformationValueDate RecordedSex Assigned at JvlfdMsmctv33/03/2025 3:45 PM EDTLegal OjmOqrtkx67/30/2022 12:07 AM EDTGender VueqwmakBsozux52/03/2025 3:45 PM EDTSexual OrientationHeterosexual or Gkklemyp75/03/2025 3:45 PM EDTdocumented as of this encounter Progress Notes * Vicky Cardenas RN - 01/03/2025 12:35 PM EST OP DEE ROSARIO received the following message from Blanka with Dr. Cesar's office Adrian Perry! I spoke with Dr. Cesar this morning. We will put in the referral for GI to Dr. Knight :) His METAL RIVETER saw this patient during her last hospitalization. She has a dysmotility issue. OP DEE ROSARIO will relay message to pt. * Vicky Cardenas RN - 01/03/2025 12:35 PM EST OP DEE ROSARIO left message with pt informing that a referral will be sent to Dr Knight's office from Dr Cesar's office for an appointment. Provided OP RN Cm contact information. documented in this encounter Plan of Treatment DateTypeDepartmentCare Team (Latest Contact Info)Fekvxvetkzq59/03/2025 8:15 AM ESTAppointment [facility] X-Ray Imaging [address] [place] [address] 01/23/2025 1:00 PM ESTClinical Support [facility] Surgery Clinic [address] [place] [address] 01/31/2025 11:00 AM ESTOffice Visit [facility] [address] [place] [address] Wali Collins MD [address] [place] [address] 06/28/2025 1:15 PM EDTFollow-Up [facility] Surgery Clinic [address] [facility] [place] [address] Donnie Cesar MD [address] [place] [address] documented as of this encounter Visit Diagnoses Not on filedocumented in this encounter Care Teams Team MemberRelationshipSpecialtyStart DateEnd Date Thomas Alas MD [address] [facility] [address] [address] PCP - GeneralFamily Medicine08/17/24 Vicky Cardenas, DEE Case ManagerCase Nlyhrsymzo13/13/25documented as of this encounter
--- OUTSIDE RECORDS SUMMARY | 2025-01-09 12:14 | XMS_ITS | Encounter Summary ---
Author Organization [facility] Address [address] [place] [address] Care Team Providers Care Cyber Operator Name Role Phone Thomas Alas MD Primary Care Provider [phone] Vicky Cardenas RN Unavailable Unavailable Reason for Referral * Consultation (Routine) - ClosedSpecialtyDiagnoses / ProceduresReferred By ContactReferred To ContactGastroenterology Diagnoses History of Isabel-en-Y gastric bypass Protein-calorie malnutrition, unspecified severity Median arcuate ligament syndrome Impaired intestinal absorption Decreased oral intake Procedures [place] OFFICE/OUTPATIENT NEW HIGH MDM 60 MINUTES Donnie Cesar MD [address] [place] [address] Phone: tel: fax: Aryan Knight MD [address] [place] [address] [address] [place] [address] Phone: tel: fax: Referral IDStatusReasonStart DateExpiration DateVisits RequestedVisits [id number] Specialty Services Required 511/ Encounter Details DateTypeDepartmentCare Team (Latest Contact Info)Tjbhgbzuskv81/19/2025Orders Only [facility] Surgery Clinic [address] [place] [address] Blanka Parkinson RN Decreased oral intake (Primary Dx); History of Isabel-en-Y gastric bypass; Protein-calorie malnutrition, unspecified severity; Median arcuate ligament syndrome; Impaired intestinal absorption Social History Tobacco UseTypesPacks/DayYears UsedDateSmoking Tobacco: NeverSmokeless Tobacco: NeverAlcohol UseStandard Drinks/WeekCommentsNot Currently0 (1 standard drink = 0.6 oz pure alcohol)[facility] UtilitiesAnswerDate RecordedIn the past 12 months has the electric, gas, oil, or water [employer] threatened to shut off services in your home?Yes12/17/2024Overall Financial Resource Strain (CARDIA)AnswerDate Recorded How hard is it for you to pay for the very basics like food, housing, medical care, and heating?Not hard at all12/17/2024PHQ-2AnswerDate RecordedPatient Health Questionnaire-2 Zytgc75702/28/2024Humiliation, Afraid, Rape, and Kick questionnaireAnswerDate RecordedWithin the [...] homeless or living in a assisted (including now)?No12/17/2024Hunger Vital SignAnswerDate RecordedWithin the past 12 months, you worried that your food would run out before you got the money to buymore.Never true12/17/2024Ran Out of Food in the Last YearNot on file 12/17/2024CommentsNoSex and Gender InformationValueDate RecordedSex Assigned at NxcakAzvrxo2025 3:45 PM EDTLegal HkqKqmrhj05/30/2022 12:07 AM EDTGender NmdyeybxSrnxew51/03/2025 3:45 PM EDTSexual OrientationHeterosexual or Psiwjgrp45/03/2025 3:45 PM EDTdocumented as of this encounter Plan of Treatment DateTypeDepartmentCare Team (Latest Contact Info)Idhzewfpbju54/03/2025 8:15 AM ESTAppointment [facility] X-Ray Imaging [address] [place] [address] 01/23/2025 1:00 PM ESTClinical Support [facility] Surgery Clinic [address] [place], [place] [address] [address] 01/31/2025 11:00 AM ESTOffice Visit [facility] Heart at [facility] [address] [place] [address] Wali Collins MD [address] [place], [place] [address] [address] 06/28/2025 1:15 PM EDTFollow-Up [facility] Surgery Clinic [address] [place], [place] [address] [address] Donnie Cesar MD [address] [place] [phone] NameTypePriorityAssociated DiagnosesOrder ScheduleAmbulatory referral to GastroenterologyOutpatient ReferralRoutine History of Isabel-en-Y gastric bypass Protein-calorie malnutrition, unspecified severity Median arcuate ligament syndrome Impaired intestinal absorption Decreased oral intake Expected: 01/03/2025 (Approximate), Expires: 07/03/2025documented as of this encounter Visit Diagnoses Diagnosis Decreased oral intake- Primary History of Isabel-en-Y gastric bypass Protein-calorie malnutrition, unspecified severity Median arcuate ligament syndrome Celiac artery compression syndrome Impaired intestinal absorption Unspecified intestinal malabsorption documented in this encounter Care Teams Team MemberRelationshipSpecialtyStart DateEnd Date Thomas Alas MD [address] [facility] [place] [address] PCP - GeneralFamily Medicine08/17/24 Vicky Cardenas RN Case ManagerCase Kbqbyziktz60/13/25documented as of this encounter
--- OUTSIDE RECORDS SUMMARY | 2025-01-09 12:14 | XMS_ITS | Encounter Summary ---
Author Organization [facility] Address [address] [facility] [place] [address] Care Team Providers Care Garnett Fixer Name Role Phone Thomas Alas MD Primary Care Provider [phone] Vicky Cardenas RN Unavailable Unavailable Reason for Visit * ReasonOnset DateCommentsCare Yenuocpnbkmv32/18/2025 Encounter Details DateTypeDepartmentCare Team (Latest Contact Info)Umcsuidhioj33/18/2025Patient Outreach Value Based Care [address] [place] [address] Vicky Cardenas, DEE Care Coordination Social History Tobacco UseTypesPacks/DayYears UsedDateSmoking Tobacco: NeverSmokeless Tobacco: NeverAlcohol UseStandard Drinks/WeekCommentsNot Currently0 (1 standard drink = 0.6 oz pure alcohol)[facility] UtilitiesAnswerDate RecordedIn the past 12 months has the [employer], gas, oil, or water [employer] threatened to shut off services in your home?Yes12/17/2024Overall Financial Resource Strain (CARDIA)AnswerDate Recorded How hard is it for you to pay for the very basics like food, housing, medical care, and heating?Not hard at all12/17/2024PHQ-2AnswerDate RecordedPatient Health Questionnaire-2 Ynsso55302/28/2024Humiliation, Afraid, Rape, and Kick questionnaireAnswerDate RecordedWithin the [...] homeless or living in a retirement (including now)?No12/17/2024Hunger Vital SignAnswerDate RecordedWithin the past 12 months, you worried that your food would run out before you got the money to buymore.Never true12/17/2024Ran Out of Food in the Last YearNot on file 12/17/2024CommentsNoSex and Gender InformationValueDate RecordedSex Assigned at IkpvnKolfkr84/03/2025 3:45 PM EDTLegal HgdSfqhsh53/30/2022 12:07 AM EDTGender VktazrqmWwdwus12/03/2025 3:45 PM EDTSexual OrientationHeterosexual or Ygftmbgs22/03/2025 3:45 PM EDTdocumented as of this encounter Progress Notes * Vicky Cardenas RN - 01/02/2025 3:13 PM EST OP DEE ROSARIO called pt for coordination of care. Pt stated that she saw her PCP for a follow up appointment on 01/01/2025 with no new changes. Pt stated she saw Dr Cesar on 12/28/2024 and an appointment for barium swallow study has been scheduled and an appointment bariatric nutrition consult has been scheduled as well. Pt stated she was still waiting for an appointment to be made with GI/motility Dr. Knight. Pt is uncertain if she has a insurance CM assigned to her. Pt is currently receiving TPN threetimes a week and has [address] nurse for [facility] who goes to the home 2x weekly. OP DEE ROSARIO will follow upwith appointment with Dr Knight and follow up on health plan shoe parts caser. * Vicky Cardenas RN - 01/02/2025 3:13 PM EST OP RN MARLENE reached out to recycling coordinator Blanka with Dr Cesar. This senior technical writer explained that pt stated she was transferring her care to [facility] from [facility]. Pt had a RYGB at [facility] 01/2022. Pt stated Dr Cesar was going to send a referral to Dr Knight (GI/Motility specialist). Blanka stated she will check with Dr Cesar and let this senior technical writer know if a referral is needed.OP DEE ROSARIO will continue to follow. documented in this encounter Plan of Treatment DateTypeDepartmentCare Team (Latest Contact Info)Eoapadquirw30/03/2025 8:15 AM ESTAppointment [facility] X[facility] [place] [address] 01/23/2025 1:00 PM ESTClinical Support [facility] Surgery Clinic [facility] [place] [address] 01/31/2025 11:00 AM ESTOffice Visit [facility] Heart at [facility] [address] [place] [address] Wali Collins MD [facility] [place] [address] 06/28/2025 1:15 PM EDTFollow-Up [facility] Surgery Clinic [address] [place] [address] Donnie Cesar MD [address] [place] [address] [place] [address] documented as of this encounter Visit Diagnoses Not on filedocumented in this encounter Care Teams Team MemberRelationshipSpecialtyStart DateEnd Date Thomas Alas MD [address] [facility] [place] [address] [address] PCP - GeneralFamily Medicine08/17/24 Vicky Cardenas, DEE Case ManagerCase Oogecolgam49/13/25documented as of this encounter
--- OUTSIDE RECORDS SUMMARY | 2025-01-09 12:14 | XMS_ITS | Clinical Summary ---
Author Organization [facility] Address [address] [place] [address] Care Team Providers Care Product Accountant Name Role Phone Mateusz Rosales MD Unavailable [phone] Source Comments The following information is NOT included in Care Everywhere downloads:Psychiatric notes, ECG results, Cardiac Rehab notes, Pulmonary Function notes, data from SmartForms (includes but not limited toPregnancy data,audiograms, eye exams, pre-surgical evaluation notes, well-child exam data).[facility] Medications No known medications Active Problems ProblemNoted DateDiagnosed DateMedian arcuate ligament /02/2025 Assessment & Plan (10/09/2024 2:29 PM EDT): [...] prior laparotomy and open repair Encounters DateTypeDepartmentCare ExvxEzetljhxpim38/25/2025 1:45 PM EDTTelemedicine [facility] Oncology Surgical [address] [place], [place] [address] Mateusz Rosales MD Median arcuate ligament syndrome (HCC) (Primary Dx)10/09/2024Travelfrom Last 3 Months Immunizations ImmunizationAdministration DatesNext DueInfluenza, injectable, quadrivalent, preservative free (CDP=450)11/12/2022,11/16/2021,12/25/2020Influenza, unspecified formulation (CVX=88)01/01/2021,11/28/2018 Social History Tobacco UseTypesPacks/DayYears UsedDateSmoking Tobacco: NeverSmokeless Tobacco: Never Tobacco Cessation:Counseling Given: Not Answered CommentsUnknownSex and Gender InformationValueDate RecordedSex Assigned at BirthNot on fileLegal UfqOpnwet37/23/2024 2:52 PM ESTGender IdentityNot on fileSexual OrientationNot on file Last Filed Vital Signs Vital SignReadingTime TakenCommentsBlood Xjtplews932/7306 2:27 PM EDT Cpice969407/17/2024 2:27 PM ABFIcvklhnhkmg30.4 ??C (97.5 ??F)07/17/2024 2:27 PM EDTRespiratory Ddxk169407/17/2024 2:27 PM EDTOxygen Uoyzipbfwg89%07/17/2024 2:27 PM EDTInhaled Oxygen Concentration--Xfsbaz84.5 kg (192 lb 12.8 oz)07/17/2024 2:27 PM EDTHeight--Body Mass Index-- Plan of Treatment Health MaintenanceDue DateLast DoneCommentsMammography (shared decision-making, age 35-39)1989HIV Test2004Hepatitis C Fyfcfrrq11/17/2008Tdap Booster 2007Hepatitis A (HAV) Vaccine (optional start 19+ years)2008 Hepatitis B (HBV) Vaccine (1 of 3 - 19+ 3-dose series)2008HPV Vaccine (optional start 27-45 years)2016Pap Smear04//OVID-19 Vaccine (3 - 2024- season)501/05/2021, 06/23/2020Influenza Vaccine (#1)509/, 11/16/2021, 01/01/2021, Additional history exists Shingles (RZV) Vaccine (1 of 2)2039MammographyDiscontinuedPneumococcal Vaccine(s)Aged OutNo longer eligible based on patient's age to complete this topic Insurance Care Teams Team MemberRelationshipSpecialtyStart DateEnd Date Mateusz Rosales MD [address] [place] [address] PhysicianGeneral Surgery05/20/24
--- OUTSIDE RECORDS SUMMARY | 2025-01-09 12:15 | XMS_ITS | Encounter Summary ---
Author Organization [facility] Address [address] [place] [address] Care Team Providers Care Facility Coordinator Name Role Phone Thomas Alas MD Primary Care Provider Vicky Cardenas RN Unavailable Unavailable Encounter Details DateTypeDepartmentCare Team (Latest Contact Info)Gewwedyccgf36/19/2025Patient Outreach Value Based Care [address] [place] [address] Vicky Cardenas, DEE Social History Tobacco UseTypesPacks/DayYears UsedDateSmoking Tobacco: NeverSmokeless Tobacco: NeverAlcohol UseStandard Drinks/WeekCommentsNot Currently0 (1 standard drink = 0.6 oz pure alcohol)[facility] UtilitiesAnswerDate RecordedIn the past 12 months has the electric, gas, oil, or water [employer] threatened to shut off services in your home?Yes12/17/2024Overall Financial Resource Strain (CARDIA)AnswerDate Recorded How hard is it for you to pay for the very basics like food, housing, medical care, and heating?Not hard at all12/17/2024PHQ-2AnswerDate RecordedPatient Health Questionnaire-2 Kafin59702/28/2024Humiliation, Afraid, Rape, and Kick questionnaireAnswerDate RecordedWithin the [...] homeless or living in a intermediate (including now)?No12/17/2024Hunger Vital SignAnswerDate RecordedWithin the past 12 months, you worried that your food would run out before you got the money to buymore.Never true12/17/2024Ran Out of Food in the Last YearNot on file 12/17/2024CommentsNoSex and Gender InformationValueDate RecordedSex Assigned at XvmmhKbldfo20/03/2025 3:45 PM EDTLegal GfhDbykje54/30/2022 12:07 AM EDTGender PevlmciuOrtoad29/03/2025 3:45 PM EDTSexual OrientationHeterosexual or Lhvywlur77/03/2025 3:45 PM EDTdocumented as of this encounter Progress Notes * Vicky Cardenas RN - 01/03/2025 3:27 PM EST OP DEE ROSARIO called pt's health plan [employer] [facility] Medicaid and spoke to Delilah. This residential mortgage underwriter explained that pt would like a health plan ed case manager assigned to her. Delilah stated she would not be ableto provide that service but would transfer me to a department that would be able to assist. This residential mortgage underwriter was transferred and put on hold for 30 minutes. OP DEE ROSARIO will try and make another attempt at requesting a health plan case manger for pt. documented in this encounter Plan of Treatment DateTypeDepartmentCare Team (Latest Contact Info)Dzhyfzijwio22/03/2025 8:15 AM ESTAppointment [facility] X-Ray [facility] [address] [place] [address] 01/23/2025 1:00 PM ESTClinical Support [facility] [place] [address] 01/31/2025 11:00 AM ESTOffice Visit [facility] Heart at [facility] [address] [place] [address] Wali Collins MD [address] [place] [address] 06/28/2025 1:15 PM EDTFollow-Up [facility] Surgery [place] [address] Donnie Cesar MD [address] [address] documented as of this encounter Visit Diagnoses Not on filedocumented in this encounter Care Teams Team MemberRelationshipSpecialtyStart DateEnd Date Thomas Alas MD [address] [facility] [address] [address] PCP - GeneralFamily Medicine08/17/24 Vicky Cardenas RN Case ManagerCase Omxtkufkkd07/13/25documented as of this encounter
--- OUTSIDE RECORDS SUMMARY | 2025-01-09 12:16 | XMS_ITS | Patient Health Record ---
Author Organization [facility] es Address [address] [place] [address] Care Team Providers Care School Health Aide Name Role Phone Ashley Bryson Primary Care Provider Christina Dominguez Unavailable Unavailable Reason For Referral No Information Encounters Encounter Location Date Provider Diagnosis [facility] [address] [place] [address] 04/25/2024 Ashley Bryson Encounter for dental examination [...] End Date Dental [employer] DQ [address] [address] [place] [phone] [id number], BESSIESelf - patient is the tynbncn2025Dental Wrap [facility] HumanaPO [address] [place] [id number], BESSIE Self - patient is the [id number] 2024
--- OUTSIDE RECORDS SUMMARY | 2025-01-09 12:16 | XMS_ITS ---
Author Organization [facility] Address [address] [place] [address] Care Team Providers Care Bookie Name Role Phone Thomas Alas MD Primary Care Provider [phone] Vicky Cardenas RN Unavailable Unavailable Active Problems ProblemNoted DateDiagnosed DatePartial bowel prajxxbcgaj21/02/2025Obstructed internal btombh5712/17/2024bnormal thyroid blood test12/05/2024llergic jjxpvyeqtfvtaj00/21/2477Ukmndplb65/21/2025 Overview (12/05/2024): Problem List clean-up per request of Phys. EHR Cmte Edema12/05/20242773Zwtkzsdtadfy20/21/2725Kwmnwtzfghf18/21/2025Otitis media of left ear12/05/2024Postgastric surgery ccjfqefw52/21/5064Tbgdvkxum14/21/2025 Overview (12/05/2024): Problem List clean-up per request of Phys. EHR Cmte Common bile duct doskhptplm19/02/2025 Assessment & Plan (11/16/2024 2:13 AM EDT): CT chest/abd/pelvis noted CBD dilation and apperance of complex inflammatory changes. Patient has required multiple doses of opiates and antiemetics to control symptoms. Request to transfer to the [facility] where much of her advanced care has been provided with Specific concern that she may need ERCP/advanced endoscopy to further evaluation Pain management GI consult Disorder of endocrine wukjww5011/09/2024Lumbar fxwileeeumrcu04/25/2025Migraine 11/09/2024Severe protein-calorie malnutrition ([place]: less than 60% of standard weight)11/09/2024Pseudoaneurysm of right femoral oppndn8711/09/2024 Assessment & Plan (11/12/2024 12:39 PM EDT): [...] pseudoaneurysm 11/02 -stable - follow Hgb Myocardial nnrpkj1911/09/2024 Assessment & Plan (11/12/2024 12:39 PM EDT): [...] need to uptitrate verapamil if BP allows Qrcgbbjc49/18/2025Chest pain10/30/2024 Assessment & Plan (11/16/2024 2:13 AM [...] without complication, without long-term current use of rhdzurn3910/30/2024 Assessment & Plan (11/12/2024 12:39 PM EDT): [...] at home, will begin ISS, ACHS Primary njwcvztciqzj68/15/2025Other hgofoynivjespm55/15/2056Uflgom59/15/2025 Assessment & Plan (11/02/2024 1:29 PM EDT): [...] Stable, last BM yesterday Median arcuate ligament cdckeanb43/15/2025 Assessment & Plan (11/12/2024 12:39 PM EDT): [...] and then MALS release S/P laparoscopic sleeve cidocpxhmtj53/15/2025 Assessment & Plan (11/12/2024 12:39 PM EDT): [...] 9:00 PM EDT): - Stable Protein calorie ubwrhebbfkxr80/15/2025 Assessment & Plan (11/02/2024 1:29 PM EDT): [...] pain today patient brought urgently back to Makeup Sales Advisor Assessment & Plan (11/01/2024 11:57 AM EDT): [...] -Pending TTE, cath Spontaneous dissection of coronary dwhmzx3010/30/2024 Assessment & Plan (11/12/2024 12:39 PM EDT): [...] pain today patient brought urgently back to Makeup Sales Advisor Feeding bvsrjbcqpicp42/09/2025roken central line09/21/2024Long term (current) use of opiate wupouklpv93/07/2025Poor response to enteral bhdmzumxc10/28/2025 Sepsis due to Czqjcflfhz20/04/2025 Assessment & Plan (08/19/2024 1:03 PM EDT): - source is likely the cellulitis around the J-tube status post J-tube removal. - CT scan from [facility] showing no abscess. - Infectious disease recommendations appreciated, continue with ceftriaxone. - Repeat blood cultures on 08/16: NGTD - central line in place, does not look like infected, continue monitoring, central line care. Assessment & Plan (08/18/2024 12:20 PM EDT): - source is likely the cellulitis around the J-tube status post J-tube removal. - CT scan from [facility] showing no abscess. - Infectious disease recommendations appreciated, continue with ceftriaxone. - Repeat blood cultures on 08/16: NGTD - central line in place, does not look like infected, continue monitoring, central line care. Sepsis due to Rzgyhuvdaaro86/04/2025 Assessment & Plan (08/19/2024 1:03 PM EDT): - source is likely the cellulitis around the J-tube status post J-tube removal. - CT scan from [facility] showing no abscess. - Infectious disease recommendations appreciated, continue with ceftriaxone. - Repeat blood cultures on 08/16: NGTD - central line in place, does not look like infected, continue monitoring, central line care. Assessment & Plan (08/18/2024 12:20 PM EDT): - source is likely the cellulitis around the J-tube status post J-tube removal. - CT scan from [facility] showing no abscess. - Infectious disease recommendations appreciated, continue with ceftriaxone. - Repeat blood cultures on 08/16: NGTD - central line in place, does not look like infected, continue monitoring, central line care. Wvnvzxizduvnv88/04/2025 Assessment & Plan (11/12/2024 12:39 PM EDT): [...] admission. - As needed antiemetics Chronic pain uardcsqk09/04/2025 Assessment & Plan (11/12/2024 12:39 PM EDT): [...] and scheduled tramadol. Continue with as needed [place]. Assessment & Plan (08/18/2024 12:20 PM EDT): - continue with home meds including fentanyl patch and scheduled tramadol. Continue with as needed [place]. 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 Assessment & Plan (08/18/2024 12:20 PM EDT): - status postresection. History of adrenal xrnefjusszhwd13/04/2025 Assessment & Plan (11/12/2024 12:39 PM EDT): [...] PM EDT): - continue with dexamethasone Acquired bgklwyqzmzwbln83/04/2025 Assessment & Plan (11/16/2024 2:13 AM EDT): [...] 12:20 PM EDT): - continue with levothyroxine. Fzsfzhvfzpiktb17/03/2025 Assessment & Plan (11/12/2024 12:39 PM EDT): [...] well as other thyroid function testing Morbid mjijbpk9408/17/2024 Assessment & Plan (08/19/2024 1:03 PM EDT): [...] daily DVT prophylaxis is VTE protocols per [facility] GI prophy Protonix Monitor labs) Obtain blood cultures Comments IV Vanco and cefepime Consult infectious diseases Early ambulation I discussed the plan of care with the patient and she is in agreement. Rabvaklxtk47/02/2025 Assessment & Plan (08/17/2024 1:27 AM EDT): -Unclear blood cultures - Commence patient on Vanco/cefepime - Monitor patient blood cultures - Also evaluate lab tests and correct abnormalities - Consult infectious disease - Obtain 2D echocardiogram History of laparoscopic mucddrjgbdivhdp02/25/2025hronic, continuous use of firvxmy1604/11/2024Starvation yoexmeuhltiw62/25/2025Intestinal dzwzefpke95/07/2024 Screening for diabetes mellitus (DM)01/22/2024History of small bowel obstruction 01/21/2024Impaired intestinal cjklyomzbs40/18/0308Krunx52/25/2024urrent use of steroid czhxjrgeto04/21/2024ommunity acquired pneumonia of left lower lobe of lung08/07/2023Idiopathic ftpnafcxfnj22/21/2024spiration pneumonia of left lower lobe due to vomit08/04/2023Syncope and ztyauaur77/19/2024Heart eqaongb5806/29/2023 Acute renal failure superimposed on chronic kidney eyjzyyf9706/29/2023Hypokalemia 06/29/2023ecreased oral mvocaw2605/25/20232449Arfnljtnzxulgm83/19/2024nxiety and sjgiohnwpn26/23/2023Feeding yfvigoh8612/07/2022Therapeutic drug monitoring 12/07/20225549Fnzidejxqpk38/12/2023ilious vomiting with erwart5410/28/2022Intractable vomiting with cnqfcb6410/25/20222471Vgdqgs11/20/2023 Overview (11/09/2024): Takes Pro FE daily. Last Assessment & Plan: Assessment: iron infusions ~1 month ago Acute pain of right knee08/04/2022all stone08/04/2022Internal derangement of right latbsass81/20/2023Mixed incontinence urge and dyywnm1508/04/2022Other specified noninflammatory disorders of ptenxa5308/04/2022atellofemoral pain syndrome of right knee08/04/2022Right flank pain08/04/2022Vaginal pain08/04/2022 Rash and nonspecific skin ilxvlswk15/07/2023History of Isabel-en-Y gastric bypass 06/24/2022ipolar epoqikup13/07/2023astric qixuip1401/29/2022Iron deficiency zlfxss1911/01/2021Ventral hernia without obstruction or xzggeaiy20/27/2022 Overview (12/05/2024): Last Assessment & Plan: Assessment: will have surgery Calculus of jvqaff5903/10/2021bnormal finding on imaging of liver04/07/2020 Moderate recurrent major xwctsytnyt35/18/2020Situational xbofcy1101/03/2020Panic disorder without kizrsdptjtz27/06/2020Trauma and stressor-related disorder 11/21/2019Duodenogastric reflux of bile11/16/20199709Urwllw69/10/2020Preoperative breuynspmbf33/10/2020Regurgitation of food09/25/2019Laryngopharyngeal reflux 10/07/2018Obstructive sleep apnea igxvofrs65/23/2019 Overview (12/05/2024): wears mask every night Wptegrcbljbkgm72/20/2019Reactive eabwolbibjeh05/19/2019Chronic fatigue syndrome 09/19/2018Iron qltreoxbyy60/05/2019Vitamin D ubhaugzdtn96/05/2019Insomnia 09/15/2018Maltracking of right oveloxs3306/27/2018Chondromalacia of patella, right 05/30/2018Arthritis of right knee05/30/201839 weeks gestation of 11/23/2016PCOS (polycystic ovarian syndrome)10/02/2013 Overview (11/09/2024): Last Assessment & Plan: Assessment: monitored per PCP Current Treatment and Therapy Plans No current plan information found. Past Treatment and Therapy Plans No past plan information found. Lifetime Dose Tracking * ChemicalLifetime DoseAutomatic EntryManual EntryFluoro Time1,946.2 minutes0 minutes1,946.2 minutesAir Kerma1,280 mGy0 mGy1,280 mGyDose Area Gavnsyv476,543 mGy-cm20 mGy-ab1529,543 mGy-cm2
--- OUTSIDE RECORDS SUMMARY | 2025-01-09 12:16 | XMS_ITS ---
Author Organization [facility] Address [address] [place] [address] Care Team Providers Care Engineering Technical Specialist Name Role Phone Thomas Alas MD Primary Care Provider Vicky Cardenas RN Unavailable Unavailable RN- Specialty Case Management Status:Enrolled (Active) Start date:12/28/2024 Enrollment date:12/28/2024 Enrollment reason:Identified as high-risk Overview This program is intended for use by RN Specialty Java Developer With Security Clearance to track the outreach to and progressof community resources connections and patients. NameRelationsClayton Cardenas RN(Responsible Staff)Java Developer With Security Clearance Continued Care and Services Coordination
--- OUTSIDE RECORDS SUMMARY | 2025-01-09 12:16 | XMS_ITS | Clinical Summary ---
Author Organization [employer] Address [id number] [address] [place] [address] Care Team Providers Care Hoist Worker Name Role Phone No Pcp, No Pcp Primary Care Provider Unavailabl e Allergies Active AllergyReactionsCriticalityNoted QgugXeazzwhdUvsijck11/18/2018 Medications MedicationSigDispense QuantityRefillsLast FilledStart DateEnd DateStatus levothyroxine [...] breakfast.Active lancets (ONETOUCH DELICA LANCETS) 33 gauge [facility] Indications:Abnormal glucose tolerance affecting , antepartumOne touch [...] Problems ProblemNoted DateDiagnosed DateHypothyroidism affecting in second lguxvdtec47/08/2018 Family History Medical HistoryRelationNameCommentsThyroid diseaseFatherDiabetesMaternal GrandfatherHypertensionMaternal GrandfatherThyroid diseaseMaternal Grandfather HypertensionMaternal GrandmotherDiabetesMotherHypertensionMotherHypertension Paternal GrandfatherDiabetesPaternal GrandmotherHypertensionPaternal Grandmother Thyroid diseasePaternal GrandmotherRelationNameStatusCommentsFatherMaternal GrandfatherMaternal GrandmotherDeceasedMotherPaternal GrandfatherPaternal GrandmotherDeceased Social History Tobacco UseTypesPacks/DayYears UsedDateSmoking Tobacco: NeverSmokeless Tobacco: NeverAlcohol UseStandard Drinks/WeekCommentsNo0 (1 standard drink = 0.6 oz pure alcohol)ChildcareAnswerDate OwwfvvihWneaqhvgvFmtecnb58/09/2019EmploymentAnswer Date HinnhlqyInnvrywpuqCmzxebh09/09/2019Purpose - LifeAnswerDate RecordedPurpose and direction in nfshFsvmfyj68/11/2021CommentsNoSex and Gender InformationValueDate RecordedSex Assigned at BirthNot on fileLegal SexFemale 09/20/2014 11:41 AM EDTGender IdentityNot on fileSexual OrientationNot on file Last Filed Vital Signs Vital SignReadingTime TakenCommentsBlood Znsoiwqw947/71003/15/2019 9:28 AM EST Wdfbn477103/15/2019 9:28 AM ESTTemperature--Respiratory Rate--Oxygen Saturation-- Inhaled Oxygen Concentration--Zpglko178 kg (262 lb 5.6 oz)03/15/2019 9:28 AM EST Mdrgpv937.2 cm (5' 7 )01/16/2019 8:31 AM ESTBody Mass Index41.0901/16/2019 8:31 AM EST Plan of Treatment Health MaintenanceDue DateLast DoneCommentsDepression Fvqonvorz45/17/2002Tobacco Wehwpnpeo09/17/2002Adult BMI Zjirgphea59/17/2008DTaP,Tdap and Td Vaccines (1 - Tdap)2008Pap Smear2010Influenza Bmfvifv3810/16/2024 Medical Devices Not on file Insurance Care Teams Team MemberRelationshipSpecialtyStart DateEnd Date No Pcp, No Pcp [place] [id number] [facility]
--- OUTSIDE RECORDS SUMMARY | 2025-01-09 12:16 | XMS_ITS | Patient Health Record ---
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 Name Role Phone Brandyn Alas Primary Care Provider [phone] Allergies Allergen (clinical drug ingredient) Drug/Non Drug Allergy documented on EMR Reaction Allergy Type Onset Date Status codeine Codeine vomiting Drug Allergy ActiveNon-steroidal anti-inflammatory agent (FN)NSAIDsGastric bypassDrug Allergy Active Results Component Value Reference Range Notes CBC AUTO DIFF Reviewed date:08/10/2024 07:02:35 PM Interpretation: Performing Lab: Notes/Report: [facility] , White Blood Count 9.3 4.0-11.0 10 3/uL Red Blood Count3.214.20-5.40 10 6/rWCkanftfnid66.312.0-16.0 g/sCWqhgryzgdb05.5 36.0-48.0 %Mean Corpuscular Fnlfvp04.981.0-99.0 fLMean Corpuscular Hemoglobin 32.126.7-34.0 pgMean Corpuscular HGB Conc34.929.9-35.2 g/dLRed Cell Distribution Width13.411.0-15.0 %Platelet Akdjv999217-999 10 3/uLMean Platelet Twjash87.59.5- 13.5 fLNeutrophils Percent Auto83.243.0-75.0 %Lymphocytes Percent Auto10.620.5- 60.0 %Monocytes Percent Auto4.51.7-12.0 %Eosinophils Percent Auto0.10.9-7.0 % Basophils Percent Auto0.20.2-2.0 %Immature Granulocytes Pct Auto1.40.0-0.5 % Neutrophils Absolute Auto7.71.4-6.5 10 3/uLLymphocytes Absolute Auto1.01.2-3.8 10 3/uLMonocytes Absolute Auto0.40.3-0.8 10 3/uLEosinophils Absolute Auto0.00.0- 0.7 10 3/uLBasophils Absolute Auto0.00.0-0.1 10 3/uLImmature Granulocytes Abs Auto0.130.00-0.03 10 3/uLPerforming Lab:see noteML - [facility] LBXR acute abdomen series Reviewed date:01/12/2024 05:28:40 PM Interpretation: Performing Lab: Notes/Report: Source Facility: [place] [address] [place] [address] XRay Report Signed Patient: JUAN GARCIA MR#: [id number] : 1990 Acct:[id number] Age/Sex: 33 / F ADM Date: 01/10/24 Loc: LAB Attending Dr: Britt Aals M.D. Ordering Physician: Britt Alas M.D. Date of Service: 01/10/24 Procedure(s): XR acute abdomen series Accession Number(s): [id number] cc: Britt Alas M.D. [place] [address] Patient Name: JUAN GARCIA MRN: [id number] date: 1990 Sex: F Assigned Patient Location: LAB Current Patient Location: Accession/Order Number: [id number] Exam Date: 01/10/2024 10:06 Report Date: 01/12/2024 [...] Baca M.D. Signed By: 01/12/24 1448 DD/ TD/TT: County Extension Agent:XR abdomen 1V Reviewed date:01/17/2024 01:32:20 PM Interpretation: Performing Lab: Notes/Report: Source Facility: [place] [address] XRay Report Signed Patient: JUAN GARCIA MR#: [id number] : 1990 Acct:[id number] Age/Sex: 33 / F ADM Date: 01/17/24 Loc: ER Attending Dr: Ordering Physician: Leslie Terrazas M.D. Date of Service: 01/17/24 Procedure(s): XR abdomen 1V Accession Number(s): [id number] cc: Britt Alas M.D.; Leslie Terrazas M.D. [place] [address] Patient Name: JUAN GARCIA MRN: [id number] date: 1990 Sex: F Assigned Patient Location: ER Current Patient Location: ER Accession/Order Number: [id number] Exam Date: 01/17/2024 12:55 Report Date: 01/17/2024 [...] Signed By: 01/17/24 1329 DD/ 1326 TD/TT: County Extension Agent:FERRITIN Reviewed date:01/31/2024 02:12:13 PM Interpretation: Performing Lab: Notes/Report: [facility] ,Mddahggv09.08.0-252.0 ng/mLPerforming Lab:[facility] noteUC [facility] LB IRON AND TIBC Reviewed date:01/31/2024 02:12:13 PM Interpretation: Performing Lab: Notes/Report: [employer] [facility] ,Acvg615.050.0-170.0 ug/dLTotal Iron Binding Zgetsuec851.0250.0-450.0 ug/dL Percent Iron Vhvuyyhjqv68.3Performing Lab:see note - [facility] LB MAGNESIUM Reviewed date:02/16/2024 03:19:17 PM Interpretation: Performing Lab: Notes/Report: HOME HEALTH NURSE [facility] ,Magnesium1.81.8-2.4 mg/dLPerforming Lab:see note - [facility] LB PHOSPHORUS Reviewed date:02/16/2024 03:19:17 PM Interpretation: Performing Lab: Notes/Report: HOME HEALTH NURSE [facility] ,Phosphorus3.32.6-4.7 mg/dLPerforming Lab:see noteUC [facility] LB PROF 14(COMP METB) Reviewed date:02/16/2024 03:19:17 PM Interpretation: Performing Lab: Notes/Report: HOME HEALTH NURSE [facility] ,Yuxvjk878367-786 mmol/LPotassium3.83.5-5.1 mmol/FOmobjdtq68042-472 mmol/LCarbon Hhqryjp78.521.0-32.0 mmol/LAnion Gap11.5Rfcilys5381-197 mg/dLBlood Urea Nitrogen 7.07.0-18.0 mg/dLCreatinine0.900.55-1.02 mg/dLEstimated GFR ( Shelby>60 >=60 mL/min/1.73m 2Estimated GFR (Non- Caroline>60>=60 mL/min/1.73m 2BUN Creatinine Ratio7.9Otspgrt7.48.5-10.1 mg/dLBilirubin Total0.30.2-1.0 mg/dL Aspartate Amino Kellhsgzhay3577-65 U/LAlanine Bafenehqzwgnozpg6502-51 U/L Alkaline Lapvnjmzuum0828-731 U/LTotal Protein6.66.4-8.2 g/dLAlbumin Level3.63.4- 5.0 g/dLGlobulin3.0Albumin Globulin Ratio1.2Performing Lab:see noteML - [facility] LBCBC AUTO DIFF Reviewed date:03/29/2024 09:46:23 PM Interpretation: Performing Lab: Notes/Report: [facility] ,White Blood Count8.64.0-11.0 10 3/uLRed Blood Count3.734.20-5.40 10 6/uL Bigaspqevm37.712.0-16.0 g/oIEootezrzpl75.536.0-48.0 %Mean Corpuscular Hndkke34.9 81.0-99.0 fLMean Corpuscular Zjrqbhnsul38.026.7-34.0 pgMean Corpuscular HGB Conc 34.829.9-35.2 g/dLRed Cell Distribution Width12.011.0-15.0 %Platelet Vlaik411 150-450 10 3/uLMean Platelet Lvbsfq33.89.5-13.5 fLNeutrophils Percent Auto87.8 43.0-75.0 %Lymphocytes Percent Auto10.220.5-60.0 %Monocytes Percent Auto1.61.7- 12.0 %Eosinophils Percent Auto0.00.9-7.0 %Basophils Percent Auto0.20.2-2.0 % Immature Granulocytes Pct Auto0.20.0-0.5 %Neutrophils Absolute Auto7.51.4-6.5 10 3/uLLymphocytes Absolute Auto0.91.2-3.8 10 3/uLMonocytes Absolute Auto0.10.3-0.8 10 3/uLEosinophils Absolute Auto0.00.0-0.7 10 3/uLBasophils Absolute Auto0.00.0- 0.1 10 3/uLImmature Granulocytes Abs Auto0.020.00-0.03 10 3/uLPerforming Lab:see noteML - [facility] LBCBC AUTO DIFF Reviewed date:02/16/2024 03:19:17 PM Interpretation: Performing Lab: Notes/Report: [facility] ,White Blood Count7.74.0-11.0 10 3/uLRed Blood Count3.914.20-5.40 10 6/uL Cextxdlxcm53.512.0-16.0 g/sDNsybppkqmj05.336.0-48.0 %Mean Corpuscular Fcfsnq33.4 81.0-99.0 fLMean Corpuscular Luvqvdoitx20.026.7-34.0 pgMean Corpuscular HGB Conc 33.529.9-35.2 g/dLRed Cell Distribution Width14.311.0-15.0 %Platelet Jigur712 150-450 10 3/uLMean Platelet Abixag41.39.5-13.5 fLNeutrophils Percent Auto83.0 43.0-75.0 %Lymphocytes Percent Auto13.620.5-60.0 %Monocytes Percent Auto2.71.7- 12.0 %Eosinophils Percent Auto0.30.9-7.0 %Basophils Percent Auto0.30.2-2.0 % Immature Granulocytes Pct Auto0.10.0-0.5 %Neutrophils Absolute Auto6.41.4-6.5 10 3/uLLymphocytes Absolute Auto1.01.2-3.8 10 3/uLMonocytes Absolute Auto0.20.3-0.8 10 3/uLEosinophils Absolute Auto0.00.0-0.7 10 3/uLBasophils Absolute Auto0.00.0- 0.1 10 3/uLImmature Granulocytes Abs Auto0.010.00-0.03 10 3/uLPerforming Lab:see noteML - [facility] LBCBC AUTO DIFF Reviewed date:03/30/2024 07:56:16 PM Interpretation: Performing Lab: Notes/Report: [facility] ,White Blood Count4.64.0-11.0 10 3/uLRed Blood Count3.644.20-5.40 10 6/uL Gqweuzzzam04.112.0-16.0 g/bAInmsvkvgjw39.136.0-48.0 %Mean Corpuscular Uomaxj36.2 81.0-99.0 fLMean Corpuscular Rkjmoakeqz14.226.7-34.0 pgMean Corpuscular HGB Conc 33.529.9-35.2 g/dLRed Cell Distribution Width12.011.0-15.0 %Platelet Efkcc701 150-450 10 3/uLMean Platelet Rtlwxa97.09.5-13.5 fLNeutrophils Percent Auto84.8 43.0-75.0 %Lymphocytes Percent Auto13.320.5-60.0 %Monocytes Percent Auto1.31.7- 12.0 %Eosinophils Percent Auto0.00.9-7.0 %Basophils Percent Auto0.20.2-2.0 % Immature Granulocytes Pct Auto0.40.0-0.5 %Neutrophils Absolute Auto3.91.4-6.5 10 3/uLLymphocytes Absolute Auto0.61.2-3.8 10 3/uLMonocytes Absolute Auto0.10.3-0.8 10 3/uLEosinophils Absolute Auto0.00.0-0.7 10 3/uLBasophils Absolute Auto0.00.0- 0.1 10 3/uLImmature Granulocytes Abs Auto0.020.00-0.03 10 3/uLPerforming Lab:see noteML - [facility] LBMAGNESIUM Reviewed date:03/30/2024 07:56:16 PM Interpretation: Performing Lab: Notes/Report: [facility] ,Magnesium1.71.8-2.4 mg/dLPerforming Lab:see noteML - [facility] LB PROF CHEM 8 (BAS METB) Reviewed date:03/30/2024 07:56:16 PM Interpretation: Performing Lab: Notes/Report: [facility] ,Jnjvou566665-174 mmol/LPotassium4.03.5-5.1 mmol/XZmtczelv32986-117 mmol/LCarbon Khiqfmz78.621.0-32.0 mmol/LAnion Gap16.2Jssnoin44370-440 mg/dLBlood Urea Nitrogen8.07.0-18.0 mg/dLCreatinine0.980.55-1.02 mg/dLEstimated GFR ( Shelby>60>=60 mL/min/1.73m 2Estimated GFR (Non- Caroline>60>=60 mL/min/1.73m 2BUN Creatinine Ratio8.2Czofhit9.38.5-10.1 mg/dLPerforming Lab:see noteML - [facility] LBAMYLASE Reviewed date:06/21/2024 12:59:38 PM Interpretation: Performing Lab: Notes/Report: [facility] ,Avixsij0944-993 U/LPerforming Lab:see noteML - [facility] LBCBC AUTO DIFF Reviewed date:06/21/2024 12:59:38 PM Interpretation: Performing Lab: Notes/Report: [facility] ,White Blood Count5.64.0-11.0 10 3/uLRed Blood Count3.724.20-5.40 10 6/uL Wdekvyjyvx90.312.0-16.0 g/aPNcsxkaakvm77.436.0-48.0 %Mean Corpuscular Cryyvx78.2 81.0-99.0 fLMean Corpuscular Xuicqwqrnc18.126.7-34.0 pgMean Corpuscular HGB Conc 34.729.9-35.2 g/dLRed Cell Distribution Width12.211.0-15.0 %Platelet Acpry501 150-450 10 3/uLMean Platelet Volume9.49.5-13.5 fLNeutrophils Percent Auto83.0 43.0-75.0 %Lymphocytes Percent Auto13.720.5-60.0 %Monocytes Percent Auto2.71.7- 12.0 %Eosinophils Percent Auto0.00.9-7.0 %Basophils Percent Auto0.20.2-2.0 % Immature Granulocytes Pct Auto0.40.0-0.5 %Neutrophils Absolute Auto4.71.4-6.5 10 3/uLLymphocytes Absolute Auto0.81.2-3.8 10 3/uLMonocytes Absolute Auto0.20.3-0.8 10 3/uLEosinophils Absolute Auto0.00.0-0.7 10 3/uLBasophils Absolute Auto0.00.0- 0.1 10 3/uLImmature Granulocytes Abs Auto0.020.00-0.03 10 3/uLPerforming Lab:see noteML - [facility] LBLIPASE Reviewed date:06/21/2024 12:59:38 PM Interpretation: Performing Lab: Notes/Report: [facility] ,Tcklzj96.016.0-77.0 U/LPerforming Lab:see noteML - [facility] LB LIVER PROFILE Reviewed date:06/21/2024 12:59:38 PM Interpretation: Performing Lab: Notes/Report: [facility] ,Bilirubin Total0.60.2-1.0 mg/dLBilirubin Direct0.20.0-0.2 mg/dLAspartate Amino Fnwagwaoaap2961-56 U/LAlanine Rsurmwtwvnqmhtpg1728-89 U/LAlkaline Diqpcnwhemf02 46-116 U/LTotal Protein6.76.4-8.2 g/dLAlbumin Level3.43.4-5.0 g/dLGlobulin3.3 Albumin Globulin Ratio1.0Performing Lab:see note - [facility] LB PROF CHEM 8 (BAS METB) Reviewed date:06/21/2024 12:59:38 PM Interpretation: Performing Lab: Notes/Report: [facility] ,Lgtmlt636505-073 mmol/LPotassium3.53.5-5.1 mmol/SVpdwkxpy37009-118 mmol/LCarbon Vythnsu86.721.0-32.0 mmol/LAnion Gap14.7Xmeydyy85083-957 mg/dLBlood Urea Zlerhfhy41.07.0-18.0 mg/dLCreatinine0.740.55-1.02 mg/dLEstimated GFR ( Shelby>60>=60 mL/min/1.73m 2Estimated GFR (Non- Caroline>60>=60 mL/min/1.73m 2BUN Creatinine Ratio13.9Ifmgejz0.78.5-10.1 mg/dLPerforming Lab:see noteML - [facility] LBHCG Qualitative* Reviewed date:06/21/2024 12:59:38 PM Interpretation: Performing Lab: Notes/Report: [facility] ,HCG QualitativeNEGATIVENEGATIVEPerforming Lab:see noteML - [facility] LBECG 12 lead Reviewed date:06/21/2024 08:02:33 PM Interpretation: Performing Lab: Notes/Report: Source Facility: [facility]-[address] [place] [address] [place] [address] Electrocardiograph Report Signed Patient: JUAN GARCIA MR#: [id number] : 1990 Acct:[id number] Age/Sex: 34 / F ADM Date: 06/21/24 Loc: ER Attending Dr: Ordering Physician: Leslie Terrazas M.D. 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 Measurements Intervals [place] Rate: 80 P: 54 TX: 140 QRS: 47 QRSD: 80 T: 46 QT: 384 QTc: 420 Interpretive Statements 1100 Sinus rhythm 9110 normal ECG Compared to ECG 09/23/2023 18:36:37 No significant changes Electronically Signed On 06-21-2024 18:14:03 EDT by JAMES HODGES M.D. Dictated By: JAMES HODGES Signed By: 06/21/24 1814 DD/ 1124 TD/TT: County Extension Agent:CBC AUTO DIFF Reviewed date:07/22/2024 05:16:36 PM Interpretation: Performing Lab: Notes/Report: [facility] ,White Blood Count6.44.0-11.0 10 3/uLRed Blood Count3.634.20-5.40 10 6/uL Mhakbfhmbx26.812.0-16.0 g/qWXvykynrlml44.336.0-48.0 %Mean Corpuscular Vtgqer09.5 81.0-99.0 fLMean Corpuscular Miwhsijgsm10.526.7-34.0 pgMean Corpuscular HGB Conc 34.429.9-35.2 g/dLRed Cell Distribution Width12.711.0-15.0 %Platelet Rcobu632 150-450 10 3/uLMean Platelet Yslcfp55.59.5-13.5 fLNeutrophils Percent Auto72.6 43.0-75.0 %Lymphocytes Percent Auto21.720.5-60.0 %Monocytes Percent Auto5.01.7- 12.0 %Eosinophils Percent Auto0.20.9-7.0 %Basophils Percent Auto0.30.2-2.0 % Immature Granulocytes Pct Auto0.20.0-0.5 %Neutrophils Absolute Auto4.71.4-6.5 10 3/uLLymphocytes Absolute Auto1.41.2-3.8 10 3/uLMonocytes Absolute Auto0.30.3-0.8 10 3/uLEosinophils Absolute Auto0.00.0-0.7 10 3/uLBasophils Absolute Auto0.00.0- 0.1 10 3/uLImmature Granulocytes Abs Auto0.010.00-0.03 10 3/uLPerforming Lab:see noteML - [facility] LBPROF CHEM 8 (BAS METB) Reviewed date:07/22/2024 05:16:36 PM Interpretation: Performing Lab: Notes/Report: [facility] ,Ummfsg964606-956 mmol/LPotassium3.93.5-5.1 mmol/MFqaswnlm22218-325 mmol/LCarbon Utvhzfl82.121.0-32.0 mmol/LAnion Gap15.1Ndkbgqr0240-018 mg/dLBlood Urea Nitrogen 8.07.0-18.0 mg/dLCreatinine0.680.55-1.02 mg/dLEstimated GFR ( Shelby>60 >=60 mL/min/1.73m 2Estimated GFR (Non- Caroline>60>=60 mL/min/1.73m 2BUN Creatinine Ratio11.1Uwwqmpd8.78.5-10.1 mg/dLPerforming Lab:see noteML - [facility] LBCBC AUTO DIFF Reviewed date:08/02/2024 05:29:08 PM Interpretation: Performing Lab: Notes/Report: [facility] ,White Blood Count9.14.0-11.0 10 3/uLRed Blood Count3.854.20-5.40 10 6/uL Plgvjrmkou92.412.0-16.0 g/fUAlasqaiuno90.136.0-48.0 %Mean Corpuscular Odjgzf45.8 81.0-99.0 fLMean Corpuscular Rsxsdbicud58.226.7-34.0 pgMean Corpuscular HGB Conc 34.329.9-35.2 g/dLRed Cell Distribution Width12.611.0-15.0 %Platelet Hzcsb555 150-450 10 3/uLMean Platelet Rbtgny83.49.5-13.5 fLNeutrophils Percent Auto83.0 43.0-75.0 %Lymphocytes Percent Auto12.720.5-60.0 %Monocytes Percent Auto3.41.7- 12.0 %Eosinophils Percent Auto0.40.9-7.0 %Basophils Percent Auto0.30.2-2.0 % Immature Granulocytes Pct Auto0.20.0-0.5 %Neutrophils Absolute Auto7.51.4-6.5 10 3/uLLymphocytes Absolute Auto1.21.2-3.8 10 3/uLMonocytes Absolute Auto0.30.3-0.8 10 3/uLEosinophils Absolute Auto0.00.0-0.7 10 3/uLBasophils Absolute Auto0.00.0- 0.1 10 3/uLImmature Granulocytes Abs Auto0.020.00-0.03 10 3/uLPerforming Lab:see noteML - [facility] LBLACTATE or LACTIC ACID Reviewed date:08/02/2024 05:29:08 PM Interpretation: Performing Lab: Notes/Report: [facility] ,Lactate/Lactic Acid2.20.4-2.0 mmol/LRESULTS CALLED TO DR. Larryg Lab:see noteML - [facility] LBLIPASE Reviewed date:08/02/2024 05:29:08 PM Interpretation: Performing Lab: Notes/Report: [facility] ,Endxnk21.016.0-77.0 U/LPerforming Lab:see noteML - [facility] LBPROF 14(COMP METB) Reviewed date:08/02/2024 05:29:08 PM Interpretation: Performing Lab: Notes/Report: [facility] ,Hwizdh890550-734 mmol/LPotassium3.63.5-5.1 mmol/WLjgpdazi70326-951 mmol/LCarbon Fazgzem72.321.0-32.0 mmol/LAnion Gap15.9Pyosnml8741-475 mg/dLBlood Urea Nitrogen 11.07.0-18.0 mg/dLCreatinine0.720.55-1.02 mg/dLEstimated GFR ( Shelby>60 >=60 mL/min/1.73m 2Estimated GFR (Non- Caroline>60>=60 mL/min/1.73m 2BUN Creatinine Ratio15.1Gwpxdug8.58.5-10.1 mg/dLBilirubin Total0.40.2-1.0 mg/dL Aspartate Amino Psarwuiahgs4131-85 U/LAlanine Mtsjgtlcjnolupbe6001-14 U/L Alkaline Ibrudxzembt8455-083 U/LTotal Protein6.66.4-8.2 g/dLAlbumin Level3.63.4- 5.0 g/dLGlobulin3.0Albumin Globulin Ratio1.2Performing Lab:see noteML - [facility] LBTroponin I High Sensitivity Reviewed date:08/02/2024 05:29:08 PM Interpretation: Performing Lab: Notes/Report: [facility] ,Troponin I High Sensitivity<4.04.0-51.3 pg/mL HAS BEEN CONFIRMED THE DECISION THRESHOLD FOR [place] DIAGNOSIS. 99TH PERCENTILE = 51.4 PG/ML NOTE: [...] A REFERENCE POPULATION, Performing Lab:see noteML - [facility] LBTransferrin Reviewed date:02/01/2024 12:16:29 PM Interpretation: Performing Lab: Notes/Report: [facility] ,Ywvvsxjwghm574190-195 mg/dL Performed at: [address] [id number] [employer] Utility Operator: Daron Almanza PhD, Phone: [phone] Performing Lab:see note - [facility] LBUA Micro, reflex to culture Reviewed date:08/02/2024 05:29:08 PM Interpretation: Performing Lab: Notes/Report: [facility] ,Color UrineLT. YELLOWYELLOWClarity UrineCLEARCLEARSpecific [place] Urine<=1.005 1.005-1.025pH Urine6.55.0-9.0Protein UrineNEGATIVENEG/TRACE mg/dLGlucose Urine UANEGATIVENEGATIVE mg/dLBilirubin UrineNEGATIVENEGATIVEKetones UrineNEGATIVE NEGATIVE mg/dLBlood UrineNEGATIVENEGATIVENitrite UrineNEGATIVENEGATIVE Urobilinogen Urine0.20.2-1.0 EU/dLLeukocyte Esterase UrineNEGATIVENEGATIVEWBC UrineNONE SEENNONE SEEN #/HPFRBC UrineNONE SEEN0-2 #/HPFBacteria UrineTRACENONE SEEN #/HPFMucus UrineNONE SEENNONE SEENSquamous Epithelial Cell UrineFEW NONE/RARE #/LPFCrystals Seen?None SeenNone Seen #/HPFCast Seen?NONE SEENNONE SEEN #/LPFUrine Culture IndicatedNOPerforming Lab:see noteML - [facility] LBPROF 14(COMP METB) Reviewed date:01/31/2024 02:12:13 PM Interpretation: Performing Lab: Notes/Report: [facility] ,Gkalmx502418-365 mmol/LPotassium4.03.5-5.1 mmol/RKbkrktou14880-753 mmol/LCarbon Oiruhyn82.821.0-32.0 mmol/LAnion Gap15.8Jjskkez38318-415 mg/dLBlood Urea Nitrogen9.07.0-18.0 mg/dLCreatinine1.010.55-1.02 mg/dLEstimated GFR ( Shelby>60>=60 mL/min/1.73m 2Estimated GFR (Non- Caroline>60>=60 mL/min/1.73m 2BUN Creatinine Ratio8.2Hldksld0.28.5-10.1 mg/dLBilirubin Total0.30.2-1.0 mg/dL Aspartate Amino Rpkfjwplhbh2457-89 U/LAlanine Ervaognaswgykzpi9298-62 U/L Alkaline Jukigksokgk6863-196 U/LTotal Protein6.26.4-8.2 g/dLAlbumin Level3.33.4- 5.0 g/dLGlobulin2.9Albumin Globulin Ratio1.1Performing Lab:see noteML - [facility] LBLIPASE Reviewed date:08/02/2024 05:29:08 PM Interpretation: Performing Lab: Notes/Report: [facility] ,Pkkhij23.016.0-77.0 U/LPerforming Lab:see noteML - [facility] LB LACTATE or LACTIC ACID Reviewed date:08/02/2024 05:29:08 PM Interpretation: Performing Lab: Notes/Report: Y [facility] ,Lactate/Lactic Acid1.90.4-2.0 mmol/LPerforming Lab:see noteML - [facility] LBBLOOD CULTURE ID PANEL Reviewed date:08/16/2024 07:06:02 PM Interpretation: Performing Lab: Notes/Report: [facility] ,CTX-MNOT DETECTEDNOT DETECTEIMPNOT DETECTEDNOT DETECTEKPCNOT DETECTEDNOT DETECTEmcr-1NOT DETECTEDNOT DETECTEmecA/CNOT APPLICABLENOT DETECTEmecA/C and MREJ (MRSA)NOT APPLICABLENOT DETECTENDMNOT DETECTEDNOT ALXFAXBUNY-99-fuitKPF DETECTEDNOT DETECTEvanA/BNOT APPLICABLENOT DETECTEVIMNOT DETECTEDNOT DETECTE SourceBLDEnterococcus [...] neoformans/gattiiNOT DETECTEDNOT DETECTEPerforming Lab:see noteML - [facility] LBCBC AUTO DIFF Reviewed date:08/15/2024 06:53:10 PM Interpretation: Performing Lab: Notes/Report: [facility] ,White Blood Count12.84.0-11.0 10 3/uLRed Blood Count3.444.20-5.40 10 6/uL Wofurrjjqf41.812.0-16.0 g/fEGktddzjigg05.436.0-48.0 %Mean Corpuscular Pnrlgn43.3 81.0-99.0 fLMean Corpuscular Hlpoximjqv97.426.7-34.0 pgMean Corpuscular HGB Conc 34.429.9-35.2 g/dLRed Cell Distribution Width13.711.0-15.0 %Platelet Irpbo694 150-450 10 3/uLMean Platelet Cfalfs24.09.5-13.5 fLNeutrophils Percent Auto93.4 43.0-75.0 %Lymphocytes Percent Auto4.720.5-60.0 %Monocytes Percent Auto1.21.7- 12.0 %Eosinophils Percent Auto0.00.9-7.0 %Basophils Percent Auto0.20.2-2.0 % Immature Granulocytes Pct Auto0.50.0-0.5 %Neutrophils Absolute Auto11.91.4-6.5 10 3/uLLymphocytes Absolute Auto0.61.2-3.8 10 3/uLMonocytes Absolute Auto0.20.3- 0.8 10 3/uLEosinophils Absolute Auto0.00.0-0.7 10 3/uLBasophils Absolute Auto0.0 0.0-0.1 10 3/uLImmature Granulocytes Abs Auto0.060.00-0.03 10 3/uLPerforming Lab:see noteML - [facility] LBLACTATE or LACTIC ACID Reviewed date:08/15/2024 06:53:10 PM Interpretation: Performing Lab: Notes/Report: [facility] ,Lactate/Lactic Acid0.60.4-2.0 mmol/LPerforming Lab:see noteML - [facility] LBPHOSPHORUS Reviewed date:01/31/2024 02:12:13 PM Interpretation: Performing Lab: Notes/Report: [facility] ,Phosphorus3.72.6-4.7 mg/dLPerforming Lab:see note - [facility] LB PROF 14(COMP METB) Reviewed date:08/15/2024 06:53:11 PM Interpretation: Performing Lab: Notes/Report: [facility] ,Agaotv465014-009 mmol/LPotassium3.83.5-5.1 mmol/UPpvnrxrh31732-726 mmol/LCarbon Avaqphc61.521.0-32.0 mmol/LAnion Gap15.0Wwhdhmm89218-456 mg/dLBlood Urea Whjxwnpf71.07.0-18.0 mg/dLCreatinine0.610.55-1.02 mg/dLEstimated GFR ( [place]>60>=60 mL/min/1.73m 2Estimated GFR (Non- [place]>60>=60 mL/min/1.73m 2BUN Creatinine Ratio18.5Ihfurna6.28.5-10.1 mg/dLBilirubin Total0.60.2-1.0 mg/dL Aspartate Amino Jqzyqqzvysj9527-12 U/LAlanine Vwfegppdiqrgktjs0929-35 U/L Alkaline Ijktpahkryk83922-787 U/LTotal Protein6.26.4-8.2 g/dLAlbumin Level2.5 3.4-5.0 g/dLGlobulin3.7Albumin Globulin Ratio0.7Performing Lab:see noteML - [facility] LBUA (CLEAN or CATCH) EXPLOSIVE OPERATOR or MICRO IF IND. Reviewed date:08/15/2024 06:53:11 PM Interpretation: Performing Lab: Notes/Report: [facility] ,Color UrineLT. YELLOWYELLOWClarity UrineCLEARCLEARSpecific [place] Urine1.010 1.005-1.025pH Urine6.05.0-9.0Protein UrineNEGATIVENEG/TRACE mg/dLGlucose Urine UANEGATIVENEGATIVE mg/dLBilirubin UrineNEGATIVENEGATIVEKetones Iyidf35RIASDYUO mg/dLBlood UrineNEGATIVENEGATIVENitrite UrineNEGATIVENEGATIVEUrobilinogen Urine 0.20.2-1.0 EU/dLLeukocyte Esterase UrineNEGATIVENEGATIVEUrine Microscopic IndicatedNOPerforming Lab:see noteML - [facility] LBMAGNESIUM Reviewed date:01/31/2024 02:12:13 PM Interpretation: Performing Lab: Notes/Report: [facility] ,Magnesium1.61.8-2.4 mg/dLPerforming Lab:see noteML - [facility] LB CBC AUTO DIFF Reviewed date:01/31/2024 02:12:13 PM Interpretation: Performing Lab: Notes/Report: [facility] ,White Blood Count5.34.0-11.0 10 3/uLRed Blood Count3.804.20-5.40 10 6/uL Uckzlbklfx17.712.0-16.0 g/gHZgiqichqup03.436.0-48.0 %Mean Corpuscular Xsqqgf86.8 81.0-99.0 fLMean Corpuscular Wwyakacgxt54.826.7-34.0 pgMean Corpuscular HGB Conc 32.129.9-35.2 g/dLRed Cell Distribution Width15.911.0-15.0 %Platelet Idixo183 150-450 10 3/uLMean Platelet Jtliuh73.79.5-13.5 fLNeutrophils Percent Auto78.1 43.0-75.0 %Lymphocytes Percent Auto18.420.5-60.0 %Monocytes Percent Auto2.31.7- 12.0 %Eosinophils Percent Auto0.40.9-7.0 %Basophils Percent Auto0.60.2-2.0 % Immature Granulocytes Pct Auto0.20.0-0.5 %Neutrophils Absolute Auto4.11.4-6.5 10 3/uLLymphocytes Absolute Auto1.01.2-3.8 10 3/uLMonocytes Absolute Auto0.10.3-0.8 10 3/uLEosinophils Absolute Auto0.00.0-0.7 10 3/uLBasophils Absolute Auto0.00.0- 0.1 10 3/uLImmature Granulocytes Abs Auto0.010.00-0.03 10 3/uLPerforming Lab:see noteML - [facility] LBPROF 14(COMP METB) Reviewed date:01/20/2024 03:46:41 PM Interpretation: Performing Lab: Notes/Report: [place] [employer] [facility] ,Eptahx045811-156 mmol/LPotassium4.03.5-5.1 mmol/IZsuprxsm50648-473 mmol/LCarbon Scmqqgk23.921.0-32.0 mmol/LAnion Gap15.1Sczvitc8715-912 mg/dLBlood Urea Nitrogen 7.07.0-18.0 mg/dLCreatinine0.850.55-1.02 mg/dLEstimated GFR ( Shelby>60 >=60 mL/min/1.73m 2Estimated GFR (Non- Caroline>60>=60 mL/min/1.73m 2BUN Creatinine Ratio8.1Pwhsdww3.48.5-10.1 mg/dLBilirubin Total0.30.2-1.0 mg/dL Aspartate Amino Zggwoqjvvro3986-40 U/LAlanine Baesyfpmfrnqjmqd3620-52 U/L Alkaline Ubylxrwfvzn9682-731 U/LTotal Protein6.36.4-8.2 g/dLAlbumin Level3.63.4- 5.0 g/dLGlobulin2.7Albumin Globulin Ratio1.3Performing Lab:see noteML - [facility] LBXR chest 2V Reviewed date:08/15/2024 06:53:11 PM Interpretation: Performing Lab: Notes/Report: Source Facility: [place] [address] XRay Report Signed Patient: JUAN GARCIA MR#: [id number] : 1990 Acct:[id number] Age/Sex: 34 / F ADM Date: 08/15/24 Loc: ER Attending Dr: Ordering Physician: Domenica Romeo Date of Service: 08/15/24 Procedure(s): XR chest 2V Accession Number(s): [id number] cc: Domenica Romeo; Britt Alas M.D. [place] [address] Patient Name: JUAN GARCIA MRN: [id number] date: 1990 Sex: F Assigned Patient Location: ER Current Patient Location: ER Accession/Order Number: [id number] Exam Date: 08/15/2024 14:21 Report Date: 08/15/2024 14:22 At the request of: DOMENICA ROMEO IRISH MOSS OPERATOR Procedure: XR chest 2V Chest 2 views [...] Jr., D.O. 08/15/2024 2:22 PM Dictation Location: [place] [address] Electronically authenticated by: [id number] Y Date: 08/15/2024 14:22 Dictated By: Cornel Medel M.D. Signed By: 08/15/24 1424 DD/ 142 TD/TT: County Extension Agent:SILVIA Reviewed date:01/20/2024 03:46:41 PM Interpretation: Performing Lab: Notes/Report: [place] [employer] [place] [facility] ,Phosphorus3.52.6-4.7 mg/dLPerforming Lab:see noteML - [facility] LB MAGNESIUM Reviewed date:01/20/2024 03:46:41 PM Interpretation: Performing Lab: Notes/Report: [place] [employer] [facility] ,Magnesium1.71.8-2.4 mg/dLPerforming Lab:see noteML - [facility] LB CBC AUTO DIFF Reviewed date:01/20/2024 03:46:41 PM Interpretation: Performing Lab: Notes/Report: [facility] ,White Blood Count5.74.0-11.0 10 3/uLRed Blood Count4.024.20-5.40 10 6/uL Suyvrwgxqi13.412.0-16.0 g/nHJrhhpnepsb04.736.0-48.0 %Mean Corpuscular Csjldx16.3 81.0-99.0 fLMean Corpuscular Noadkmrutq95.826.7-34.0 pgMean Corpuscular HGB Conc 33.829.9-35.2 g/dLRed Cell Distribution Width16.711.0-15.0 %Platelet Ucxbc343 150-450 10 3/uLMean Platelet Cnpmtw04.29.5-13.5 fLNeutrophils Percent Auto81.6 43.0-75.0 %Lymphocytes Percent Auto14.620.5-60.0 %Monocytes Percent Auto2.81.7- 12.0 %Eosinophils Percent Auto0.40.9-7.0 %Basophils Percent Auto0.40.2-2.0 % Immature Granulocytes Pct Auto0.20.0-0.5 %Neutrophils Absolute Auto4.71.4-6.5 10 3/uLLymphocytes Absolute Auto0.81.2-3.8 10 3/uLMonocytes Absolute Auto0.20.3-0.8 10 3/uLEosinophils Absolute Auto0.00.0-0.7 10 3/uLBasophils Absolute Auto0.00.0- 0.1 10 3/uLImmature Granulocytes Abs Auto0.010.00-0.03 10 3/uLPerforming Lab:see noteML - [facility] LBTestosterone Reviewed date:01/11/2024 02:35:19 PM Interpretation: Performing Lab: Notes/Report: [facility] ,Testosterone<38-60 ng/dL Performed at: [facility] Lab[address] [id number] [employer] Converter Utility Operator: Daron Almanza PhD, Phone: [phone] Performing Lab:see note - [facility] LBPROF 14(COMP METB) Reviewed date:08/16/2024 07:06:02 PM Interpretation: Performing Lab: Notes/Report: [facility] ,Ugexul929687-777 mmol/LPotassium3.33.5-5.1 mmol/KDscztlmr90489-208 mmol/LCarbon Kfnrhin22.521.0-32.0 mmol/LAnion Gap14.8Rtbkrev41902-039 mg/dLBlood Urea Foemvlgk71.07.0-18.0 mg/dLCreatinine0.470.55-1.02 mg/dLEstimated GFR ( Shelby>60>=60 mL/min/1.73m 2Estimated GFR (Non- Caroline>60>=60 mL/min/1.73m 2BUN Creatinine Ratio27.3Ddfewyk2.58.5-10.1 mg/dLBilirubin Total0.70.2-1.0 mg/dL Aspartate Amino Ioovpifofhh0050-94 U/LAlanine Amjuafvwbsdehgul9944-53 U/L Alkaline Kqokhzlnnpl82711-167 U/LTotal Protein5.86.4-8.2 g/dLAlbumin Level2.4 3.4-5.0 g/dLGlobulin3.4Albumin Globulin Ratio0.7Performing Lab:see noteML - [facility] LBAerobe ID + Suscept Reviewed date:08/21/2024 [...] LC - [facility] LB SEE REPORT - Farm Management Agent Id information not found for OBX-specific technical training manager legend Aerobe ID + Suscept Reviewed date:08/21/2024 [...] LC - [facility] LB SEE REPORT - Farm Management Agent Id information not found for OBX-specific technical training manager legend Aerobe ID + Suscept Reviewed date:08/19/2024 [...] ID + SusceptPerformed at: CB - [facility] [place] Aerobe ID + Suscept O:GNR Isolated O:KLEBPN Isolated Organism: 1.2 Antibiotic Interpretation SANDHYA Status Aerobe ID + [id number] [place], [place] [id number] Aerobe ID + Suscept O:GNR Isolated O:KLEBPN Isolated Organism: 1.2 Antibiotic Interpretation SANDHYA Status Aerobe ID + SusceptLab Director: Daron Almanza PhD, Phone: [phone] Aerobe ID + Suscept O:GNR Isolated O:KLEBPN [...] LC - [facility] LB SEE REPORT - Farm Management Agent Id information not found for OBX-specific technical training manager legend Aerobe ID + Suscept Reviewed date:08/19/2024 [...] SANDHYA Status Aerobe ID + SusceptPerformed at: [facility] Aerobe ID + Suscept O:GNR Isolated O:KLEBPN Isolated Organism: 1.2 Antibiotic Interpretation SANDHYA Status Aerobe ID + [id number] [place], [place] [id number] Aerobe ID + Suscept O:GNR Isolated O:KLEBPN Isolated Organism: 1.2 Antibiotic Interpretation SANDHYA Status Aerobe ID + SusceptLab Director: Daron Almanza PhD, Phone: [phone] Aerobe ID + Suscept O:GNR Isolated O:KLEBPN [...] LC - [facility] LB SEE REPORT - Farm Management Agent Id information not found for OBX-specific technical training manager legend BLOOD CULTURE ID PANEL Reviewed date:08/29/2024 05:13:56 PM Interpretation: Performing Lab: Notes/Report: [facility] ,CTX-MNOT DETECTEDNOT DETECTEIMPNOT DETECTEDNOT DETECTEKPCNOT DETECTEDNOT DETECTEmcr-1NOT DETECTEDNOT DETECTEmecA/CNOT APPLICABLENOT DETECTEmecA/C and MREJ (MRSA)NOT APPLICABLENOT DETECTENDMNOT DETECTEDNOT XVFIISNEQQ-21-pkusDCL DETECTEDNOT DETECTEvanA/BNOT APPLICABLENOT DETECTEVIMNOT DETECTEDNOT DETECTE SourceBLOODEnterococcus [...] neoformans/gattiiNOT DETECTEDNOT DETECTEPerforming Lab:see noteML - [facility] LBUA (CLEAN or CATCH) EXPLOSIVE OPERATOR or MICRO IF IND. Reviewed date:08/28/2024 06:06:36 PM Interpretation: Performing Lab: Notes/Report: [facility] ,Color UrineLT. YELLOWYELLOWClarity UrineCLEARCLEARSpecific [place] Urine1.015 1.005-1.025pH Urine6.05.0-9.0Protein UrineNEGATIVENEG/TRACE mg/dLGlucose Urine UANEGATIVENEGATIVE mg/dLBilirubin UrineNEGATIVENEGATIVEKetones UrineNEGATIVE NEGATIVE mg/dLBlood UrineNEGATIVENEGATIVENitrite UrineNEGATIVENEGATIVE Urobilinogen Urine0.20.2-1.0 EU/dLLeukocyte Esterase UrineNEGATIVENEGATIVEUrine Microscopic IndicatedNOPerforming Lab:see noteML - [facility] LBECG 12 lead Reviewed date:08/30/2024 05:17:51 PM Interpretation: Performing Lab: Notes/Report: Source Facility: [place] [address] [place] [address] Electrocardiograph Report Signed Patient: JUAN GARCIA MR#: [id number] : 1990 Acct:[id number] Age/Sex: 34 / F ADM Date: 08/28/24 Loc: [place] 218-[address]: Kal Wilson M.D. Ordering Physician: Domenica Romeo Date of Service: 08/28/24 Procedure(s): ECG 12 lead Accession Number(s): [id number] cc: [facility] Test Date: 2024-08-28 Pat Name: JUAN GARCIA Department: Room: - Gender: Female Eyeglass Maker: : 1990 Requested By: [id number] Order Number: [id number] Reading MD: KATIE ALTAMIRANO Measurements Intervals [place] Rate: 131 P: 99 TX: 124 QRS: 97 QRSD: 78 T: 68 [...] Signed By: 08/30/24 1325 DD/ 1420 TD/TT: County Extension Agent:XR chest 2V Reviewed date:08/28/2024 06:06:36 PM Interpretation: Performing Lab: Notes/Report: Source Facility: [place] [address] XRay Report Signed Patient: JUAN GARCIA MR#: [id number] : 1990 Acct:[id number] Age/Sex: 34 / F ADM Date: 08/28/24 Loc: ER Attending Dr: Ordering Physician: Domenica Romeo Date of Service: 08/28/24 Procedure(s): XR chest 2V Accession Number(s): [id number] cc: Domenica Romeo; Britt Alas M.D. [place] [address] Patient Name: JUAN GARCIA MRN: [id number] date: 1990 Sex: F Assigned Patient Location: ER Current Patient Location: ER Accession/Order Number: [id number] Exam Date: 08/28/2024 16:39 Report Date: 08/28/2024 16:40 At the request of: DOMENICA ROMEO IRISH MOSS OPERATOR Procedure: XR chest 2V XR chest 2V [...] Hutchinson M.D. 08/28/2024 4:40 PM Dictation Location: [place] [address] Electronically authenticated by: [id number] Y Date: 08/28/2024 16:40 Dictated By: Roddy Hutchinson M.D. Signed By: 08/28/24 1642 DD/ 1640 TD/TT: County Extension Agent:CBC AUTO DIFF Reviewed date:08/29/2024 05:13:55 PM Interpretation: Performing Lab: Notes/Report: [facility] ,White Blood Count5.84.0-11.0 10 3/uLRed Blood Count3.554.20-5.40 10 6/uL Optzvdtthw64.912.0-16.0 g/gYIyffwrreiz12.536.0-48.0 %Mean Corpuscular Elnedh35.5 81.0-99.0 fLMean Corpuscular Dybbqbwfls31.726.7-34.0 pgMean Corpuscular HGB Conc 33.529.9-35.2 g/dLRed Cell Distribution Width13.911.0-15.0 %Platelet Bvkqz259 150-450 10 3/uLMean Platelet Pedfww41.29.5-13.5 fLNeutrophils Percent Auto60.6 43.0-75.0 %Lymphocytes Percent Auto26.520.5-60.0 %Monocytes Percent Auto10.21.7- 12.0 %Eosinophils Percent Auto1.20.9-7.0 %Basophils Percent Auto1.20.2-2.0 % Immature Granulocytes Pct Auto0.30.0-0.5 %Neutrophils Absolute Auto3.51.4-6.5 10 3/uLLymphocytes Absolute Auto1.51.2-3.8 10 3/uLMonocytes Absolute Auto0.60.3-0.8 10 3/uLEosinophils Absolute Auto0.10.0-0.7 10 3/uLBasophils Absolute Auto0.10.0- 0.1 10 3/uLImmature Granulocytes Abs Auto0.020.00-0.03 10 3/uLPerforming Lab:see noteML - [facility] LBMAGNESIUM Reviewed date:08/29/2024 05:13:55 PM Interpretation: Performing Lab: Notes/Report: [facility] ,Magnesium1.71.8-2.4 mg/dLPerforming Lab:see noteML - [facility] LB PHOSPHORUS Reviewed date:08/29/2024 05:13:55 PM Interpretation: Performing Lab: Notes/Report: [facility] ,Phosphorus2.82.6-4.7 mg/dLPerforming Lab:see noteML - [facility] LB PROF 14(COMP METB) Reviewed date:08/29/2024 05:13:56 PM Interpretation: Performing Lab: Notes/Report: [facility] ,Tomukr567371-404 mmol/LPotassium3.63.5-5.1 mmol/EJakuibyw66218-104 mmol/LCarbon Kdngerc03.221.0-32.0 mmol/LAnion Gap13.5Ftgprve3787-897 mg/dLBlood Urea Nitrogen 6.07.0-18.0 mg/dLCreatinine0.520.55-1.02 mg/dLEstimated GFR ( Shelby>60 >=60 mL/min/1.73m 2Estimated GFR (Non- Caroline>60>=60 mL/min/1.73m 2BUN Creatinine Ratio11.2Hijuwzn2.98.5-10.1 mg/dLBilirubin Total0.40.2-1.0 mg/dL Aspartate Amino Oqrnaqlvgxo3112-43 U/LAlanine Njbokedfrogilfun3981-51 U/L Alkaline Dwcxbhqllrp0781-613 U/LTotal Protein5.46.4-8.2 g/dLAlbumin Level2.33.4- 5.0 g/dLGlobulin3.1Albumin Globulin Ratio0.7Performing Lab:see noteML - [facility] LBECG 12 lead Reviewed date:08/30/2024 05:17:51 PM Interpretation: Performing Lab: Notes/Report: Source Facility: [facility]-[address] [place] [address] [place] [address] Electrocardiograph Report Signed Patient: JUAN GARCIA MR#: [id number] : 1990 Acct:[id number] Age/Sex: 34 / F ADM Date: 08/28/24 Loc: MS 218- Attending Dr: Kal Wilson M.D. Ordering Physician: Kal Wilson M.D. Date of Service: 08/29/24 Procedure(s): ECG 12 lead Accession Number(s): [id number] cc: [facility] Test Date: 2024-08-29 Pat Name: JUAN GARCIA Department: Room: [facility] Gender: Female Eyeglass Maker: : 1990 Requested By: 2802 Order Number: [id number] Reading MD: KATIE ALTAMIRANO Measurements Intervals [place] Rate: 81 P: 52 TX: 146 QRS: 49 QRSD: 89 T: 32 QT: 391 QTc: 455 Interpretive Statements SINUS RHYTHM Compared to ECG 08/28/2024 14:20:49 Sinus tachycardia no longer present Possible ischemia no longer present Right-axis deviation no longer present Electronically Signed On 08-30-2024 13:30:47 EDT by KATIE ALTAMIRANO Dictated By: Katie Altamirano M.D. Signed By: 08/30/24 1330 DD/ 0528 TD/TT: County Extension Agent:CBC AUTO DIFF Reviewed date:09/17/2024 07:49:06 PM Interpretation: Performing Lab: Notes/Report: [facility] ,White Blood Count4.64.0-11.0 10 3/uLRed Blood Count3.804.20-5.40 10 6/uL Jguuxcprqy29.312.0-16.0 g/wLEfvqngjjxa11.836.0-48.0 %Mean Corpuscular Poitxx28.9 81.0-99.0 fLMean Corpuscular Qnnafgodok01.726.7-34.0 pgMean Corpuscular HGB Conc 33.429.9-35.2 g/dLRed Cell Distribution Width14.011.0-15.0 %Platelet Kgwgv237 150-450 10 3/uLMean Platelet Hafapg89.39.5-13.5 fLNeutrophils Percent Auto43.9 43.0-75.0 %Lymphocytes Percent Auto43.620.5-60.0 %Monocytes Percent Auto9.01.7- 12.0 %Eosinophils Percent Auto2.60.9-7.0 %Basophils Percent Auto0.70.2-2.0 % Immature Granulocytes Pct Auto0.20.0-0.5 %Neutrophils Absolute Auto2.01.4-6.5 10 3/uLLymphocytes Absolute Auto2.01.2-3.8 10 3/uLMonocytes Absolute Auto0.40.3-0.8 10 3/uLEosinophils Absolute Auto0.10.0-0.7 10 3/uLBasophils Absolute Auto0.00.0- 0.1 10 3/uLImmature Granulocytes Abs Auto0.010.00-0.03 10 3/uLPerforming Lab:see noteML - [facility] LBLACTATE or LACTIC ACID Reviewed date:09/17/2024 07:49:06 PM Interpretation: Performing Lab: Notes/Report: [facility] ,Lactate/Lactic Acid0.60.4-2.0 mmol/LPerforming Lab:see noteML - [facility] LBMAGNESIUM Reviewed date:09/17/2024 07:49:06 PM Interpretation: Performing Lab: Notes/Report: [facility] ,Magnesium1.71.8-2.4 mg/dLPerforming Lab:see noteML - [facility] LB PROF CHEM 8 (BAS METB) Reviewed date:09/17/2024 07:49:06 PM Interpretation: Performing Lab: Notes/Report: [facility] ,Tguewi664053-126 mmol/LPotassium3.63.5-5.1 mmol/TSottqasa86617-273 mmol/LCarbon Uxydxiw05.521.0-32.0 mmol/LAnion Gap14.7Wpsnqyl7616-793 mg/dLBlood Urea Nitrogen 6.07.0-18.0 mg/dLCreatinine0.660.55-1.02 mg/dLEstimated GFR ( Shelby>60 >=60 mL/min/1.73m 2Estimated GFR (Non- Caroline>60>=60 mL/min/1.73m 2BUN Creatinine Ratio9.9Moreehr1.48.5-10.1 mg/dLPerforming Lab:see noteML - [facility] LBUA RANDOM W or MICROSCOPIC Reviewed date:09/17/2024 07:49:06 PM Interpretation: Performing Lab: Notes/Report: [facility] ,Color UrineYELLOWYELLOWClarity UrineCLEARCLEARSpecific [place] Urine1.020 1.005-1.025pH Urine6.05.0-9.0Protein UrineNEGATIVENEG/TRACE mg/dLGlucose Urine UANEGATIVENEGATIVE mg/dLBilirubin UrineNEGATIVENEGATIVEKetones UrineTRACE NEGATIVE mg/dLBlood UrineNEGATIVENEGATIVENitrite UrineNEGATIVENEGATIVE Urobilinogen Urine0.20.2-1.0 EU/dLLeukocyte Esterase UrineNEGATIVENEGATIVEWBC UrineNONE SEENNONE SEEN #/HPFRBC Urine0-20-2 #/HPFBacteria UrineTRACENONE SEEN #/HPFMucus UrineNONE SEENNONE SEENSquamous Epithelial Cell UrineMANYNONE/RARE #/LPFCrystals Seen?None SeenNone Seen #/HPFCast Seen?NONE SEENNONE SEEN #/LPF Urine Culture IndicatedNOPerforming Lab:see noteML - [facility] LBECG 12 lead Reviewed date:09/17/2024 07:49:06 PM Interpretation: Performing Lab: Notes/Report: Source Facility: [facility]-[address] [place] [address] [place] [address] Electrocardiograph Report Signed Patient: JUAN GARCIA MR#: [id number] : 1990 Acct:[id number] Age/Sex: 34 / F ADM Date: 09/15/24 Loc: ER Attending Dr: Ordering Physician: Leslie Terrazas M.D. Date of Service: 09/15/24 Procedure(s): ECG 12 lead Accession Number(s): [id number] cc: [facility] Test Date: 2024-09-15 Pat Name: JUAN GARCIA Department: Room: - Gender: Female Eyeglass Maker: : 1990 Requested By: BRITT ALAS Order Number: [id number] Reading MD: JAMES HODGES M.D. Measurements Intervals [place] Rate: 97 P: 90 TX: 136 QRS: 92 QRSD: 82 T: 18 QT: 356 QTc: 411 Interpretive Statements 1100 Sinus rhythm 4068 Nonspecific [place] abnormality 7102 Moderate right axis deviation Abnormal ECG Compared to ECG 08/29/2024 05:28:41 Right-axis deviation now present Electronically Signed On 09-15-2024 18:32:41 EDT by JAMES HODGES M.D. Dictated By: JAMES HODGES Signed By: 09/15/24 1833 DD/ 1637 TD/TT: County Extension Agent:XR chest 1V Reviewed date:09/17/2024 07:49:06 PM Interpretation: Performing Lab: Notes/Report: Source Facility: [place] [address] XRay Report Signed Patient: JUAN GARCIA MR#: [id number] : 1990 Acct:[id number] Age/Sex: 34 / F ADM Date: 09/15/24 Loc: ER Attending Dr: Ordering Physician: Leslie Terrazas M.D. Date of Service: 09/15/24 Procedure(s): XR chest 1V Accession Number(s): [id number] cc: Britt Alas M.D.; Leslie Terrazas M.D. [place] [address] Patient Name: JUAN GARCIA MRN: [facility]:[id number] date: 1990 Sex: F Assigned Patient Location: ER Current Patient Location: ER Accession/Order Number: [id number] Exam Date: 09/15/2024 17:03 Report Date: 09/15/2024 [...] Lundberg M.D. 09/15/2024 5:04 PM Dictation Location: [place] [address] Electronically authenticated by: [id number] Y Date: 09/15/2024 17:04 Dictated By: Tio Lundberg M.D. Signed By: 09/15/247 DD/ 03 TD/TT: County Extension Agent:CRP Reviewed date:09/20/2024 12:30:47 PM Interpretation: Performing Lab: Notes/Report: [facility] ,C Reactive Protein<0.50<=0.50 mg/dLPerforming Lab:see noteML - [facility] LBUA Micro, reflex to culture Reviewed date:09/20/2024 12:30:47 PM Interpretation: Performing Lab: Notes/Report: [facility] ,Color UrineLT. YELLOWYELLOWClarity UrineCLEARCLEARSpecific [place] Urine1.010 1.005-1.025pH Urine6.55.0-9.0Protein UrineNEGATIVENEG/TRACE mg/dLGlucose Urine UANEGATIVENEGATIVE mg/dLBilirubin UrineNEGATIVENEGATIVEKetones UrineNEGATIVE NEGATIVE mg/dLBlood UrineNEGATIVENEGATIVENitrite UrineNEGATIVENEGATIVE Urobilinogen Urine0.20.2-1.0 EU/dLLeukocyte Esterase UrineNEGATIVENEGATIVEWBC UrineNONE SEENNONE SEEN #/HPFRBC UrineNONE SEEN0-2 #/HPFBacteria UrineNONE SEEN NONE SEEN #/HPFMucus UrineNONE SEENNONE SEENSquamous Epithelial Cell UrineRARE NONE/RARE #/LPFCrystals Seen?None SeenNone Seen #/HPFCast Seen?NONE SEENNONE SEEN #/LPFUrine Culture IndicatedNOPerforming Lab:see noteML - [facility] LBCBC AUTO DIFF Reviewed date:10/24/2024 02:11:49 PM Interpretation: Performing Lab: Notes/Report: [facility] ,White Blood Count3.64.0-11.0 10 3/uLRed Blood Count3.754.20-5.40 10 6/uL Drqqnmejme41.412.0-16.0 g/gQNcktywdzig28.436.0-48.0 %Mean Corpuscular Uyporo66.1 81.0-99.0 fLMean Corpuscular Sgjopyvcwa97.426.7-34.0 pgMean Corpuscular HGB Conc 34.129.9-35.2 g/dLRed Cell Distribution Width13.711.0-15.0 %Platelet Xogsw033 150-450 10 3/uLMean Platelet Mcffsv77.79.5-13.5 fLNeutrophils Percent Auto54.6 43.0-75.0 %Lymphocytes Percent Auto36.420.5-60.0 %Monocytes Percent Auto7.31.7- 12.0 %Eosinophils Percent Auto1.10.9-7.0 %Basophils Percent Auto0.60.2-2.0 % Immature Granulocytes Pct Auto0.00.0-0.5 %Neutrophils Absolute Auto2.01.4-6.5 10 3/uLLymphocytes Absolute Auto1.31.2-3.8 10 3/uLMonocytes Absolute Auto0.30.3-0.8 10 3/uLEosinophils Absolute Auto0.00.0-0.7 10 3/uLBasophils Absolute Auto0.00.0- 0.1 10 3/uLImmature Granulocytes Abs Auto0.000.00-0.03 10 3/uLPerforming Lab:see noteML - [facility] LBECG 12 lead Reviewed date:10/26/2024 07:01:06 PM Interpretation: Performing Lab: Notes/Report: Source Facility: [address] [address] Electrocardiograph Report Signed Patient: JUAN GARCIA MR#: [id number] : 1990 Acct:[id number] Age/Sex: 34 / F ADM Date: 10/24/24 Loc: ER Attending Dr: Ordering Physician: Leslie Terrazas M.D. Date of Service: 10/24/24 Procedure(s): ECG 12 lead Accession Number(s): [id number] cc: [facility] Test Date: 2024-10-24 Pat Name: JUAN GARCIA Department: Room: - Gender: Female Eyeglass Maker: : 1990 Requested By: 1030 Order Number: [id number] Reading MD: KATIE ALTAMIRANO Measurements Intervals [place] Rate: 87 P: 55 TX: 114 QRS: 88 QRSD: 78 T: 39 QT: 384 QTc: 428 Interpretive Statements 1100 Sinus rhythm 2210 Short TX interval 9150 abnormal ECG Compared to ECG 09/15/2024 16:37:37 Short TX interval now present Right-axis deviation no longer present Electronically Signed On 10-26-2024 13:33:01 EDT by KATIE ALTAMIRANO Dictated By: Katie Altamirano M.D. Signed By: 10/26/243 10/26/24 1333 DD/ 0943 TD/TT: County Extension Agent:Blood Culture 1 Reviewed date:10/31/2024 05:15:55 PM Interpretation: Performing Lab: Notes/Report: [facility] ,Blood Culture 1See Below For Report NG5D NO GROWTH AT 5 DAYS.^NO GROWTH AT 5 DAYS. Blood Culture 1 Performing Lab:see noteML - [facility] LBBlood Culture 2 Reviewed date:10/31/2024 05:15:55 PM Interpretation: Performing Lab: Notes/Report: AEROBIC BOTTLE ONLY [facility] ,Blood Culture 2See Below For Report [id number] NO GROWTH AT 5 DAYS.^NO GROWTH AT 5 DAYS. Blood Culture 2 Performing Lab:see noteML - [facility] LBCBC AUTO DIFF Reviewed date:10/29/2024 12:41:46 PM Interpretation: Performing Lab: Notes/Report: [facility] ,White Blood Count3.44.0-11.0 10 3/uLRed Blood Count3.934.20-5.40 10 6/uL Rszoonuohv07.612.0-16.0 g/zOJynigvcrue06.536.0-48.0 %Mean Corpuscular Osubsz36.8 81.0-99.0 fLMean Corpuscular Jzftvxaove46.526.7-34.0 pgMean Corpuscular HGB Conc 33.629.9-35.2 g/dLRed Cell Distribution Width13.411.0-15.0 %Platelet Nmfiq382 150-450 10 3/uLMean Platelet Nyktvd04.39.5-13.5 fLNeutrophils Percent Auto47.0 43.0-75.0 %Lymphocytes Percent Auto43.820.5-60.0 %Monocytes Percent Auto7.71.7- 12.0 %Eosinophils Percent Auto1.20.9-7.0 %Basophils Percent Auto0.30.2-2.0 % Immature Granulocytes Pct Auto0.00.0-0.5 %Neutrophils Absolute Auto1.61.4-6.5 10 3/uLLymphocytes Absolute Auto1.51.2-3.8 10 3/uLMonocytes Absolute Auto0.30.3-0.8 10 3/uLEosinophils Absolute Auto0.00.0-0.7 10 3/uLBasophils Absolute Auto0.00.0- 0.1 10 3/uLImmature Granulocytes Abs Auto0.000.00-0.03 10 3/uLPerforming Lab:see noteML - [facility] LBLIPASE Reviewed date:10/29/2024 12:41:46 PM Interpretation: Performing Lab: Notes/Report: [facility] ,Qdpoci96.016.0-77.0 U/LPerforming Lab:see noteML - [facility] LB MAGNESIUM Reviewed date:10/29/2024 12:41:46 PM Interpretation: Performing Lab: Notes/Report: [facility] ,Magnesium1.71.8-2.4 mg/dLPerforming Lab:see noteML - [facility] LB PROF 14(COMP METB) Reviewed date:10/29/2024 12:41:46 PM Interpretation: Performing Lab: Notes/Report: [facility] ,Yazpvp696652-435 mmol/LPotassium3.63.5-5.1 mmol/AAltbccqb85687-519 mmol/LCarbon Vtphlxc97.721.0-32.0 mmol/LAnion Gap13.9Kayxbbe2310-954 mg/dLBlood Urea Nitrogen 5.07.0-18.0 mg/dLCreatinine0.660.55-1.02 mg/dLEstimated GFR ( Shelby>60 >=60 mL/min/1.73m 2Estimated GFR (Non- Caroline>60>=60 mL/min/1.73m 2BUN Creatinine Ratio7.3Ovlgouu3.18.5-10.1 mg/dLBilirubin Total0.40.2-1.0 mg/dL Aspartate Amino Fkyjjilgiww2907-72 U/LAlanine Vfmghzleihfljewl8740-35 U/L Alkaline Gwysznsgfwp7077-963 U/LTotal Protein6.56.4-8.2 g/dLAlbumin Level3.53.4- 5.0 g/dLGlobulin3.0Albumin Globulin Ratio1.2Performing Lab:see noteML - [facility] LBCBC AUTO DIFF Reviewed date:10/30/2024 01:16:30 PM Interpretation: Performing Lab: Notes/Report: [facility] ,White Blood Count4.54.0-11.0 10 3/uLRed Blood Count3.884.20-5.40 10 6/uL Xijmuxupde30.712.0-16.0 g/fNShazadzyvh75.736.0-48.0 %Mean Corpuscular Uopxqj24.4 81.0-99.0 fLMean Corpuscular Fieghhmrfv33.226.7-34.0 pgMean Corpuscular HGB Conc 33.729.9-35.2 g/dLRed Cell Distribution Width13.211.0-15.0 %Platelet Oygjx805 150-450 10 3/uLMean Platelet Iekbkm62.29.5-13.5 fLNeutrophils Percent Auto49.5 43.0-75.0 %Lymphocytes Percent Auto41.020.5-60.0 %Monocytes Percent Auto7.71.7- 12.0 %Eosinophils Percent Auto0.90.9-7.0 %Basophils Percent Auto0.90.2-2.0 % Immature Granulocytes Pct Auto0.00.0-0.5 %Neutrophils Absolute Auto2.31.4-6.5 10 3/uLLymphocytes Absolute Auto1.91.2-3.8 10 3/uLMonocytes Absolute Auto0.40.3-0.8 10 3/uLEosinophils Absolute Auto0.00.0-0.7 10 3/uLBasophils Absolute Auto0.00.0- 0.1 10 3/uLImmature Granulocytes Abs Auto0.000.00-0.03 10 3/uLPerforming Lab:see noteML - [facility] LBPROF 14(COMP METB) Reviewed date:10/30/2024 01:16:30 PM Interpretation: Performing Lab: Notes/Report: [facility] ,Baqkpn036208-932 mmol/LPotassium3.83.5-5.1 mmol/WPjgmtyrg84234-750 mmol/LCarbon Uyemjxa85.821.0-32.0 mmol/LAnion Gap13.6Xfbhngs5258-382 mg/dLBlood Urea Nitrogen 4.07.0-18.0 mg/dLCreatinine0.650.55-1.02 mg/dLEstimated GFR ( Shelby>60 >=60 mL/min/1.73m 2Estimated GFR (Non- Caroline>60>=60 mL/min/1.73m 2BUN Creatinine Ratio6.5Ibpakrb9.18.5-10.1 mg/dLBilirubin Total0.30.2-1.0 mg/dL Aspartate Amino Ggrepddrszo2692-77 U/LAlanine Adtoblowhcvsuqoh0202-65 U/L Alkaline Unnqamdnnuy5041-980 U/LTotal Protein6.36.4-8.2 g/dLAlbumin Level3.33.4- 5.0 g/dLGlobulin3.0Albumin Globulin Ratio1.1Performing Lab:see noteML - [facility] LBPTT Reviewed date:10/30/2024 02:53:54 PM Interpretation: Performing Lab: Notes/Report: [facility] ,Partial Thromboplastin Time28.622.3-36.2 secPerforming Lab:see [facility] LBProthrombin Time INR Reviewed date:10/30/2024 02:53:54 PM Interpretation: Performing Lab: Notes/Report: [facility] ,Prothrombin Time11.49.0-11.6 secINR1.08 DESIRED INR: 2.0-3.0 CONDITIONS NOT LISTED BELOW 2.5-3.5 FOR PROSTHETIC HEART VALVE REPLACEMENT 2.5-3.5 RECURRENT THROMBOSIS Performing Lab:see [facility] LBTroponin I High Sensitivity Reviewed date:10/30/2024 01:16:30 PM Interpretation: Performing Lab: Notes/Report: [facility] ,Troponin I High Cifdeeozpvi11.84.0-51.3 pg/mL CUT-OFF POINTS HAVE BEEN ESTABLISHED BASED ON THE FOURTH UNIVERSAL DEFINITION OF MYOCARDIAL INFARCTION. THE UPPER REFERENCE LIMIT (URL) OF TROPONIN, DEFINED THE 99TH PERCENTILE OF cTnI DISTRIBUTION IN A REFERENCE POPULATION, HAS BEEN CONFIRMED THE DECISION THRESHOLD FOR [place] DIAGNOSIS. 99TH PERCENTILE = 51.4 PG/ML NOTE: HIGH-SENSITIVITY TROPONIN ASSAY IS NOT INTENDED TO BE USED IN ISOLATION BUT SHOULD BE INTERPRETED IN CONJUNCTION WITH OTHER DIAGNOSTIC AND CLINICAL INFORMATION. Performing Lab:see [facility] LBHCG Qualitative* Reviewed date:10/30/2024 01:16:30 PM Interpretation: Performing Lab: Notes/Report: [facility] ,HCG QualitativeNEGATIVENEGATIVEPerforming Lab:see [facility] LBECG 12 lead Reviewed date:10/30/2024 05:59:55 PM Interpretation: Performing Lab: Notes/Report: Source Facility: [facility]-[address] [place] [address] [place] [address] Electrocardiograph Report Signed Patient: JUAN GARCIA MR#: [id number] : 1990 Acct:[id number] Age/Sex: 34 / F ADM Date: 10/30/24 Loc: ER Attending Dr: Ordering Physician: Barbara Willoughby Date of Service: 10/30/24 Procedure(s): ECG 12 lead Accession Number(s): [id number] cc: [facility] Test Date: 2024-10-30 Pat Name: JUNA GARCIA Department: Room: - Gender: Female 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 Signed By: 10/30/24 165 DD/ 1015 TD/TT: County Extension Agent:ARABELLA chest 1V Reviewed date:10/30/2024 01:16:30 PM Interpretation: Performing Lab: Notes/Report: Source Facility: [place] [address] XRay Report Signed Patient: JUAN GARCIA MR#: [id number] : 1990 Acct:[id number] Age/Sex: 34 / F ADM Date: Loc: ER Attending Dr: Ordering Physician: Barbara Willoughby Date of Service: 10/30/24 Procedure(s): XR chest 1V Accession Number(s): [id number] cc: Britt Alas M.D.; Barbara Willoughby [place] [id number] Patient Name: JUAN GARCIA MRN: TBH:[id number] date: 1990 Sex: F Assigned Patient Location: ED.MAIN Current Patient Location: ED.MAIN Accession/Order Number: [id number] Exam Date: 10/30/2024 10:20 Report Date: 10/30/2024 [...] Hutchinson M.D. 10/30/2024 10:45 AM Dictation Location: [place] [address] Electronically authenticated by: [id number] Y Date: 10/30/2024 10:45 Dictated By: Maricruz Hutchinson M.D. Signed By: 10/30/24 1048 DD/ 44 TD/TT: County Extension Agent:Troponin I High Sensitivity Reviewed date:10/30/2024 01:16:30 PM Interpretation: Performing Lab: Notes/Report: [facility] ,Troponin I High Nowthraxotn926.64.0-51.3 pg/mL RESULTS CALLED TO HENNY SHAH at 1252 CUT-OFF POINTS HAVE BEEN ESTABLISHED BASED ON THE FOURTH UNIVERSAL DEFINITION OF MYOCARDIAL INFARCTION. THE UPPER REFERENCE LIMIT (URL) OF TROPONIN, DEFINED THE 99TH PERCENTILE OF cTnI DISTRIBUTION IN A REFERENCE POPULATION, HAS BEEN CONFIRMED THE DECISION THRESHOLD FOR TN DIAGNOSIS. 99TH PERCENTILE = 51.4 PG/ML NOTE: HIGH-SENSITIVITY TROPONIN ASSAY IS NOT INTENDED TO BE USED IN ISOLATION BUT SHOULD BE INTERPRETED IN CONJUNCTION WITH OTHER DIAGNOSTIC AND CLINICAL INFORMATION. Performing Lab:see noteML - [facility] LBECG 12 lead Reviewed date:10/30/2024 05:59:55 PM Interpretation: Performing Lab: Notes/Report: Source Facility: [facility]-[address] [place] [address] [place] [address] Electrocardiograph Report Signed Patient: JUAN GARCIA MR#: [id number] : 1990 Acct:[id number] Age/Sex: 34 / F ADM Date: 10/30/24 Loc: ER Attending Dr: Ordering Physician: Barbara Willoughby Date of Service: 10/30/24 Procedure(s): ECG 12 lead Accession Number(s): [id number] cc: [facility] Test Date: 2024-10-30 Pat Name: JUAN GARCIA Department: Room: - Gender: Female 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 Signed By: 10/30/24 1658 DD/ 1256 TD/TT: County Extension Agent:Troponin I High Sensitivity Reviewed date:10/30/2024 04:08:35 PM Interpretation: Performing Lab: Notes/Report: [facility] ,Troponin I High Ywgaprbyzby933.34.0-51.3 pg/mL PERCENTILE OF cTnI DISTRIBUTION IN A REFERENCE POPULATION, HAS BEEN CONFIRMED THE DECISION THRESHOLD FOR TN DIAGNOSIS. 99TH PERCENTILE = 51.4 PG/ML NOTE: [...] THE 99TH Performing Lab:see noteML - [facility] LBCBC AUTO DIFF Reviewed date:11/14/2024 04:56:23 PM Interpretation: Performing Lab: Notes/Report: [facility] ,White Blood Count3.64.0-11.0 10 3/uLRed Blood Count3.044.20-5.40 10 6/uL Hemoglobin9.212.0-16.0 g/iTQxsrwibclx28.836.0-48.0 %Mean Corpuscular Ofcppe24.4 81.0-99.0 fLMean Corpuscular Wxkbzdqrsl48.326.7-34.0 pgMean Corpuscular HGB Conc 33.129.9-35.2 g/dLRed Cell Distribution Width14.611.0-15.0 %Platelet Cssts934 150-450 10 3/uLMean Platelet Qhejsq02.69.5-13.5 fLNeutrophils Percent Auto36.0 43.0-75.0 %Lymphocytes Percent Auto47.420.5-60.0 %Monocytes Percent Auto10.01.7- 12.0 %Eosinophils Percent Auto5.80.9-7.0 %Basophils Percent Auto0.80.2-2.0 % Immature Granulocytes Pct Auto0.00.0-0.5 %Neutrophils Absolute Auto1.31.4-6.5 10 3/uLLymphocytes Absolute Auto1.71.2-3.8 10 3/uLMonocytes Absolute Auto0.40.3-0.8 10 3/uLEosinophils Absolute Auto0.20.0-0.7 10 3/uLBasophils Absolute Auto0.00.0- 0.1 10 3/uLImmature Granulocytes Abs Auto0.000.00-0.03 10 3/uLPerforming Lab:see noteML - [facility] LBPROF CHEM 8 (BAS METB) Reviewed date:11/14/2024 04:56:23 PM Interpretation: Performing Lab: Notes/Report: [facility] ,Yluufl464507-044 mmol/LPotassium3.83.5-5.1 mmol/NUihqxjtj08304-792 mmol/LCarbon Lqsbrqf31.321.0-32.0 mmol/LAnion Gap14.1Jilohip0421-550 mg/dLBlood Urea Nitrogen 12.07.0-18.0 mg/dLCreatinine0.730.55-1.02 mg/dLEstimated GFR ( Shelby>60 >=60 mL/min/1.73m 2Estimated GFR (Non- Caroline>60>=60 mL/min/1.73m 2BUN Creatinine Ratio16.3Mnrhdpn3.98.5-10.1 mg/dLPerforming Lab:see noteML - [facility] LBTroponin I High Sensitivity Reviewed date:11/14/2024 04:56:23 PM Interpretation: Performing Lab: Notes/Report: [facility] ,Troponin I High Sensitivity5.64.0-51.3 pg/mL CUT-OFF POINTS HAVE BEEN ESTABLISHED BASED ON THE FOURTH UNIVERSAL DEFINITION OF MYOCARDIAL INFARCTION. THE UPPER REFERENCE LIMIT (URL) OF TROPONIN, DEFINED THE 99TH PERCENTILE OF cTnI DISTRIBUTION IN A REFERENCE POPULATION, HAS BEEN CONFIRMED THE DECISION THRESHOLD FOR TN DIAGNOSIS. 99TH PERCENTILE = 51.4 PG/ML NOTE: HIGH-SENSITIVITY TROPONIN ASSAY IS NOT INTENDED TO BE USED IN ISOLATION BUT SHOULD BE INTERPRETED IN CONJUNCTION WITH OTHER DIAGNOSTIC AND CLINICAL INFORMATION. Performing Lab:see noteML - [facility] LBECG 12 lead Reviewed date:11/15/2024 01:03:51 PM Interpretation: Performing Lab: Notes/Report: Source Facility: [facility]-[address] [place] [address] [place] [address] Electrocardiograph Report Signed Patient: JUAN GARCIA MR#: [id number] : 1990 Acct:[id number] Age/Sex: 34 / F ADM Date: 11/14/24 Loc: ER Attending Dr: Ordering Physician: Otilio Klein Date of Service: 11/14/24 Procedure(s): ECG 12 lead Accession Number(s): [id number] cc: 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 Measurements Intervals [place] Rate: 69 P: 76 TX: 154 QRS: 80 QRSD: 90 T: 84 QT: 402 QTc: 420 Interpretive Statements 1100 Sinus rhythm 9110 normal ECG Compared to ECG 10/30/2024 15:31:37 No significant changes Electronically Signed On 11-14-2024 20:01:07 EDT by JAMES HODGES M.D. Dictated By: JAMES HODGES Signed By: [id number] DD/ 172 TD/TT: County Extension Agent:CBC AUTO DIFF Reviewed date:11/19/2024 02:14:57 PM Interpretation: Performing Lab: Notes/Report: [facility] ,White Blood Count3.44.0-11.0 10 3/uLRed Blood Count3.334.20-5.40 10 6/uL Hemoglobin9.812.0-16.0 g/jFLnqsyzscto34.636.0-48.0 %Mean Corpuscular Mduzrx55.9 81.0-99.0 fLMean Corpuscular Gvbucrsjpx87.426.7-34.0 pgMean Corpuscular HGB Conc 33.129.9-35.2 g/dLRed Cell Distribution Width14.011.0-15.0 %Platelet Yvdci937 150-450 10 3/uLMean Platelet Dvajub91.29.5-13.5 fLNeutrophils Percent Auto43.8 43.0-75.0 %Lymphocytes Percent Auto42.120.5-60.0 %Monocytes Percent Auto8.81.7- 12.0 %Eosinophils Percent Auto3.80.9-7.0 %Basophils Percent Auto1.20.2-2.0 % Immature Granulocytes Pct Auto0.30.0-0.5 %Neutrophils Absolute Auto1.51.4-6.5 10 3/uLLymphocytes Absolute Auto1.41.2-3.8 10 3/uLMonocytes Absolute Auto0.30.3-0.8 10 3/uLEosinophils Absolute Auto0.10.0-0.7 10 3/uLBasophils Absolute Auto0.00.0- 0.1 10 3/uLImmature Granulocytes Abs Auto0.010.00-0.03 10 3/uLPerforming Lab:see noteML - [facility] LBPROF 14(COMP METB) Reviewed date:11/19/2024 02:14:57 PM Interpretation: Performing Lab: Notes/Report: [facility] ,Eywvas672007-599 mmol/LPotassium3.73.5-5.1 mmol/HVizridcw47978-335 mmol/LCarbon Emazwsi77.021.0-32.0 mmol/LAnion Gap12.1Deoarlm3330-273 mg/dLBlood Urea Nitrogen 11.07.0-18.0 mg/dLCreatinine0.700.55-1.02 mg/dLEstimated GFR ( Shelby>60 >=60 mL/min/1.73m 2Estimated GFR (Non- Caroline>60>=60 mL/min/1.73m 2BUN Creatinine Ratio15.2Atzwkfs2.18.5-10.1 mg/dLBilirubin Total0.40.2-1.0 mg/dL Aspartate Amino Hxbljptsepe4008-62 U/LAlanine Fbuqdgellbgptjkt6399-42 U/L Alkaline Ryuddjuhkye9962-449 U/LTotal Protein6.46.4-8.2 g/dLAlbumin Level3.23.4- 5.0 g/dLGlobulin3.2Albumin Globulin Ratio1.0Performing Lab:see note - [facility] LBTroponin I High Sensitivity Reviewed date:11/19/2024 02:14:57 PM Interpretation: Performing Lab: Notes/Report: [facility] ,Troponin I High Sensitivity4.44.0-51.3 pg/mL CUT-OFF POINTS HAVE BEEN ESTABLISHED BASED ON THE FOURTH UNIVERSAL DEFINITION OF MYOCARDIAL INFARCTION. THE UPPER REFERENCE LIMIT (URL) OF TROPONIN, DEFINED THE 99TH PERCENTILE OF cTnI DISTRIBUTION IN A REFERENCE POPULATION, HAS BEEN CONFIRMED THE DECISION THRESHOLD FOR TN DIAGNOSIS. 99TH PERCENTILE = 51.4 PG/ML NOTE: HIGH-SENSITIVITY TROPONIN ASSAY IS NOT INTENDED TO BE USED IN ISOLATION BUT SHOULD BE INTERPRETED IN CONJUNCTION WITH OTHER DIAGNOSTIC AND CLINICAL INFORMATION. Performing Lab:see note - [facility] LBHCG Qualitative* Reviewed date:11/19/2024 02:14:57 PM Interpretation: Performing Lab: Notes/Report: [facility] ,HCG QualitativeNEGATIVENEGATIVEPerforming Lab:see smith - [facility] LBECG 12 lead Reviewed date:11/20/2024 12:44:41 PM Interpretation: Performing Lab: Notes/Report: Source Facility: [facility]-[address] [place] [address] [place] [address] Electrocardiograph Report Signed Patient: JUAN GARCIA MR#: [id number] : 1990 Acct:[id number] Age/Sex: 34 / F ADM Date: 11/19/24 Loc: [place] 214-[address]: TRACIE ZIMMER Ordering Physician: TRACIE ZIMMER Date of Service: 11/19/24 Procedure(s): ECG 12 lead Accession Number(s): [id number] cc: [facility] Test Date: 2024-11-19 Pat Name: JUAN GARCIA Department: Room: [facility] Gender: Female 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 Measurements Intervals [place] Rate: 60 P: 50 TX: 153 QRS: 41 QRSD: 89 T: 51 QT: 427 QTc: 428 Interpretive Statements SINUS RHYTHM Normal ECG Compared to ECG 11/14/2024 17:23:57 No significant changes Electronically Signed On 11-19-2024 19:26:01 EDT by JAMES HODGES M.D. Dictated By: JAMES HODGES Signed By: 11/19/24192511/19/241925 DD/ 155 TD/TT: County Extension Agent:XR chest 1V Reviewed date:11/19/2024 02:14:57 PM Interpretation: Performing Lab: Notes/Report: Source Facility: [place] [address] XRay Report Signed Patient: JUAN GARCIA MR#: [id number] : 1990 Acct:[id number] Age/Sex: 34 / F ADM Date: 11/19/24 Loc: ER Attending Dr: Ordering Physician: Barbara Willoughby Date of Service: 11/19/24 Procedure(s): XR chest 1V Accession Number(s): [id number] cc: Britt Alas M.D.; Barbara Willoughby [place] [id number] Patient Name: JUAN GARCIA MRN: [id number] date: 1990 Sex: F Assigned Patient Location: ED.MAIN Current Patient Location: ED.MAIN Accession/Order Number: [id number] Exam Date: 11/19/2024 09:40 Report Date: 11/19/2024 [...] PROCESS. Impression dictated by: Cornel Medel Jr., D.ORenetta 11/19/2024 9:54 AM Dictation Location: [place] [address] Electronically authenticated by: [id number] Y Date: 11/19/2024 09:54 Dictated By: Cornel Medel M.D. Signed By: 11/19/2457 DD/ TD/TT: County Extension Agent:Troponin I High Sensitivity Reviewed date:11/19/2024 02:14:57 PM Interpretation: Performing Lab: Notes/Report: [facility] ,Troponin I High Sensitivity4.84.0-51.3 pg/mL CUT-OFF POINTS HAVE BEEN ESTABLISHED BASED ON THE FOURTH UNIVERSAL DEFINITION OF MYOCARDIAL INFARCTION. THE UPPER REFERENCE LIMIT (URL) OF TROPONIN, DEFINED THE 99TH PERCENTILE OF cTnI DISTRIBUTION IN A REFERENCE POPULATION, HAS BEEN CONFIRMED THE DECISION THRESHOLD FOR TN DIAGNOSIS. 99TH PERCENTILE = 51.4 PG/ML NOTE: HIGH-SENSITIVITY TROPONIN ASSAY IS NOT INTENDED TO BE USED IN ISOLATION BUT SHOULD BE INTERPRETED IN CONJUNCTION WITH OTHER DIAGNOSTIC AND CLINICAL INFORMATION. Performing Lab:see noteML - [facility] LBTroponin I High Sensitivity Reviewed date:11/19/2024 05:07:43 PM Interpretation: Performing Lab: Notes/Report: [facility] ,Troponin I High Sensitivity<4.04.0-51.3 pg/mL CUT-OFF POINTS HAVE BEEN ESTABLISHED BASED ON THE FOURTH UNIVERSAL DEFINITION OF MYOCARDIAL INFARCTION. THE UPPER REFERENCE LIMIT (URL) OF TROPONIN, DEFINED THE 99TH PERCENTILE OF cTnI DISTRIBUTION IN A REFERENCE POPULATION, HAS BEEN CONFIRMED THE DECISION THRESHOLD FOR TN DIAGNOSIS. 99TH PERCENTILE = 51.4 PG/ML NOTE: HIGH-SENSITIVITY TROPONIN ASSAY IS NOT INTENDED TO BE USED IN ISOLATION BUT SHOULD BE INTERPRETED IN CONJUNCTION WITH OTHER DIAGNOSTIC AND CLINICAL INFORMATION. Performing Lab:see noteML - [facility] LBCBC AUTO DIFF Reviewed date:11/20/2024 12:44:41 PM Interpretation: Performing Lab: Notes/Report: [facility] ,White Blood Count2.94.0-11.0 10 3/uLRed Blood Count3.174.20-5.40 10 6/uL Hemoglobin9.312.0-16.0 g/oJXuvktkhjhd23.436.0-48.0 %Mean Corpuscular Jacwvq99.6 81.0-99.0 fLMean Corpuscular Umlzjbkmpn19.326.7-34.0 pgMean Corpuscular HGB Conc 32.729.9-35.2 g/dLRed Cell Distribution Width14.111.0-15.0 %Platelet Jkntx231 150-450 10 3/uLMean Platelet Vunsqk31.39.5-13.5 fLPerforming Lab:see note - [facility] LBPROF CHEM 8 (BAS METB) Reviewed date:11/20/2024 12:44:41 PM Interpretation: Performing Lab: Notes/Report: [facility] ,Droxqx995626-596 mmol/LPotassium4.13.5-5.1 mmol/VQmafwjlb29637-203 mmol/LCarbon Enztbmf65.821.0-32.0 mmol/LAnion Gap12.3Wwjaphe9481-794 mg/dLBlood Urea Nitrogen 10.07.0-18.0 mg/dLCreatinine0.750.55-1.02 mg/dLEstimated GFR ( Shelby>60 >=60 mL/min/1.73m 2Estimated GFR (Non- Caroline>60>=60 mL/min/1.73m 2BUN Creatinine Ratio13.0Kubpqnu5.38.5-10.1 mg/dLPerforming Lab:see noteML - [facility] LBManual Differential Reviewed date:11/20/2024 12:44:41 PM Interpretation: Performing Lab: Notes/Report: [facility] ,Segmented Neutrophils % Piglzp23.043.0-75.0Lymphocytes Percent Mffiwu61.020.5- 60.0 %Monocytes Percent Lcquky58.01.7-12.0 %Eosinophils Percent Hfykyr07.00.9- 7.0 %Basophils Percent Manual2.00.2-2.0 %Atypical Lymphocytes % Manual3.0 Segmented Neut Absolute Manual0.951.4-6.5 10 3/uLLymphocytes Absolute Manual1.16 1.20-3.80 10 3/uLMonocytes Absolute Manual0.310.30-0.80 10 3/uLEosinophils Absolute Manual0.340.00-0.70 10 3/uLBasophils Abs Manual0.050.00-0.10 10 3/uL Atypical Lymphocytes Abs Man0.53Kpzmwzjwvciuw4+Poikilocytosis1+Anisocytosis2+ Performing Lab:see noteML - [facility] LBTroponin I High Sensitivity Reviewed date:11/20/2024 12:44:41 PM Interpretation: Performing Lab: Notes/Report: [facility] ,Troponin I High Sensitivity5.24.0-51.3 pg/mL CUT-OFF POINTS HAVE BEEN ESTABLISHED BASED ON THE FOURTH UNIVERSAL DEFINITION OF MYOCARDIAL INFARCTION. THE UPPER REFERENCE LIMIT (URL) OF TROPONIN, DEFINED THE 99TH PERCENTILE OF cTnI DISTRIBUTION IN A REFERENCE POPULATION, HAS BEEN CONFIRMED THE DECISION THRESHOLD FOR TN DIAGNOSIS. 99TH PERCENTILE = 51.4 PG/ML NOTE: HIGH-SENSITIVITY TROPONIN ASSAY IS NOT INTENDED TO BE USED IN ISOLATION BUT SHOULD BE INTERPRETED IN CONJUNCTION WITH OTHER DIAGNOSTIC AND CLINICAL INFORMATION. Performing Lab:see noteML - [facility] LBECG 12 lead Reviewed date:11/20/2024 06:47:06 PM Interpretation: Performing Lab: Notes/Report: Source Facility: [facility]-[address] [place] [address] [place] [address] Electrocardiograph Report Signed Patient: JUAN GARCIA MR#: [id number] : 1990 Acct:[id number] Age/Sex: 34 / F ADM Date: 11/19/24 Loc: [place] 214-[address]: TRACIE ZIMMER Ordering Physician: TRACIE ZIMMER Date of Service: 11/20/24 Procedure(s): ECG 12 lead Accession Number(s): [id number] cc: [facility] Test Date: 2024-11-20 Pat Name: JUAN GARCIA Department: Room: [facility] Gender: Female Eyeglass Maker: : 1990 Requested By: [id number] Order Number: [id number] Reading MD: JAMES HODGES M.D. Measurements Intervals [place] Rate: 66 P: 51 TX: 157 QRS: 46 QRSD: 89 T: 55 QT: 434 QTc: 457 Interpretive Statements SINUS RHYTHM WITH OCCASIONAL VENTRICULAR PREMATURE COMPLEXES Otherwise normal ECG Compared to ECG 11/19/2024 15:53:20 Ventricular premature complex(es) now present Electronically Signed On 11-20-2024 18:25:25 EDT by JAMES HODGES M.D. Dictated By: JAMES HODGES Signed By: 11/20/24 1825 DD/ 0526 TD/TT: County Extension Agent:ECG 12 lead Reviewed date:11/21/2024 04:20:51 PM Interpretation: Performing Lab: Notes/Report: Source Facility: [facility] [address] [place] [address] Electrocardiograph Report Signed Patient: JUAN GARCIA MR#: [id number] : 1990 Acct:[id number] Age/Sex: 34 / F ADM Date: 11/19/24 Loc: [place] 214-[address]: TRACIE ZIMMER Ordering Physician: Kal Wilson M.D. Date of Service: 11/21/24 Procedure(s): ECG 12 lead Accession Number(s): [id number] cc: [facility] Test Date: 2024-11-21 Pat Name: JUAN GARCIA Department: Room: [facility] Gender: Female Eyeglass Maker: : 1990 Requested By: [id number] Order Number: [id number] Reading MD: ERLIN GELLRE Measurements Intervals [place] Rate: 77 P: 57 [place]: 150 QRS: 18 QRSD: 90 T: 38 QT: 396 QTc: 449 Interpretive Statements SINUS RHYTHM Compared to ECG 11/20/2024 05:26:15 Ventricular premature complex(es) no longer present Electronically Signed On 11-21-2024 12:57:32 EDT by ERLIN GELLER Dictated By: Erlin Geller M.D. Signed By: 11/21/24 1257 DD/ 1100 TD/TT: County Extension Agent:CBC AUTO DIFF Reviewed date:11/30/2024 07:01:13 PM Interpretation: Performing Lab: Notes/Report: [facility] ,White Blood Count3.84.0-11.0 10 3/uLRed Blood Count3.514.20-5.40 10 6/uL Ngkmiqpsxj53.312.0-16.0 g/mPCjgerqmdfw19.336.0-48.0 %Mean Corpuscular Orfjmb35.2 81.0-99.0 fLMean Corpuscular Oktvkhsdfu24.326.7-34.0 pgMean Corpuscular HGB Conc 32.929.9-35.2 g/dLRed Cell Distribution Width13.811.0-15.0 %Platelet Mxily203 150-450 10 3/uLMean Platelet Hmagvb12.89.5-13.5 fLNeutrophils Percent Auto53.1 43.0-75.0 %Lymphocytes Percent Auto34.220.5-60.0 %Monocytes Percent Auto7.41.7- 12.0 %Eosinophils Percent Auto4.20.9-7.0 %Basophils Percent Auto1.10.2-2.0 % Immature Granulocytes Pct Auto0.00.0-0.5 %Neutrophils Absolute Auto2.01.4-6.5 10 3/uLLymphocytes Absolute Auto1.31.2-3.8 10 3/uLMonocytes Absolute Auto0.30.3-0.8 10 3/uLEosinophils Absolute Auto0.20.0-0.7 10 3/uLBasophils Absolute Auto0.00.0- 0.1 10 3/uLImmature Granulocytes Abs Auto0.000.00-0.03 10 3/uLPerforming Lab:see noteML - [facility] LBUA (CLEAN or CATCH) EXPLOSIVE OPERATOR or MICRO IF IND. Reviewed date:11/30/2024 07:01:13 PM Interpretation: Performing Lab: Notes/Report: CATH SPECIMEN [facility] ,Color UrineYELLOWYELLOWClarity UrineCLEARCLEARSpecific [place] Urine>=1.030 1.005-1.025pH Urine5.55.0-9.0Protein UrineNEGATIVENEG/TRACE mg/dLGlucose Urine UANEGATIVENEGATIVE mg/dLBilirubin UrineNEGATIVENEGATIVEKetones UrineNEGATIVE NEGATIVE mg/dLBlood UrineMODERATENEGATIVENitrite UrineNEGATIVENEGATIVE Urobilinogen Urine0.20.2-1.0 EU/dLLeukocyte Esterase UrineNEGATIVENEGATIVEUrine Microscopic IndicatedYESPerforming Lab:see noteML - [facility] LBHCG Qualitative* Reviewed date:11/30/2024 07:01:13 PM Interpretation: Performing Lab: Notes/Report: [facility] ,HCG QualitativeNEGATIVENEGATIVEPerforming Lab:see noteML - [facility] LBCT abdomen pelvis wo con Reviewed date:11/30/2024 07:01:13 PM Interpretation: Performing Lab: Notes/Report: Source Facility: [place] [address] [place] [address] CT Scan Report Signed Patient: JUAN GARCIA MR#: [id number] : 1990 Acct:[id number] Age/Sex: 34 / F ADM Date: 11/30/24 Loc: ER Attending Dr: Ordering Physician: Barbara Willoughby Date of Service: 11/30/24 Procedure(s): CT abdomen pelvis wo con Accession Number(s): [id number] cc: Britt Alas M.D. [place] [address] Patient Name: JUAN GARCIA MRN: [id number] date: 1990 Sex: F Assigned Patient Location: ER Current Patient Location: ER Accession/Order Number: [id number] Exam Date: 11/30/2024 11:00 Report Date: 11/30/2024 [...] No pericecal moderate changes. No bowel obstruction. Krmw-xq-bmraljwe retained stool. Pelvis:[Bladder collapsed with Costello catheter [...] Lundberg M.D. 11/30/2024 11:55 AM Dictation Location: [place] [address] Electronically authenticated by: [id number] Y Date: 11/30/2024 11:55 Dictated By: Tio Lundberg M.D. Signed By: 11/30/24 1158 DD/ 1155 TD/TT: County Extension Agent:IRON AND TIBC Reviewed date:12/06/2024 05:46:04 PM Interpretation: Performing Lab: Notes/Report: [facility] ,Iron36.050.0-170.0 ug/dLTotal Iron Binding Bdojqdgq934.0250.0-450.0 ug/dL Percent Iron Atbuoziexd41.9Performing Lab:see noteML - [facility] LB CBC AUTO DIFF Reviewed date:12/07/2024 02:52:45 PM Interpretation: Performing Lab: Notes/Report: [facility] ,White Blood Count4.54.0-11.0 10 3/uLRed Blood Count3.594.20-5.40 10 6/uL Tkonohhrxe55.412.0-16.0 g/uLXxjudayhnm81.936.0-48.0 %Mean Corpuscular Urjvya37.9 81.0-99.0 fLMean Corpuscular Pbbctpqddv39.026.7-34.0 pgMean Corpuscular HGB Conc 32.629.9-35.2 g/dLRed Cell Distribution Width14.011.0-15.0 %Platelet Bnpfq746 150-450 10 3/uLMean Platelet Lkrxpw53.59.5-13.5 fLNeutrophils Percent Auto39.6 43.0-75.0 %Lymphocytes Percent Auto47.320.5-60.0 %Monocytes Percent Auto9.01.7- 12.0 %Eosinophils Percent Auto3.40.9-7.0 %Basophils Percent Auto0.70.2-2.0 % Immature Granulocytes Pct Auto0.00.0-0.5 %Neutrophils Absolute Auto1.81.4-6.5 10 3/uLLymphocytes Absolute Auto2.11.2-3.8 10 3/uLMonocytes Absolute Auto0.40.3- 0.8 10 3/uLEosinophils Absolute Auto0.20.0-0.7 10 3/uLBasophils Absolute Auto0.0 0.0-0.1 10 3/uLImmature Granulocytes Abs Auto0.000.00-0.03 10 3/uLPerforming Lab:see noteML - [facility] LBLIVER PROFILE Reviewed date:12/07/2024 04:07:08 PM Interpretation: Performing Lab: Notes/Report: [facility] ,Bilirubin Total0.30.2-1.0 mg/dLBilirubin Direct0.10.0-0.2 mg/dLAspartate Amino Fllhtinfgwd7645-09 U/LAlanine Axizoopsjlgdynlz6064-73 U/LAlkaline Kpasiiifnqi74 46-116 U/LTotal Protein6.76.4-8.2 g/dLAlbumin Level3.43.4-5.0 g/dLGlobulin3.3 Albumin Globulin Ratio1.0Performing Lab:see noteML - [facility] LBUA (CLEAN or CATCH) MICROSCOPIC IF INDICATE Reviewed date:12/07/2024 04:07:08 PM Interpretation: Performing Lab: Notes/Report: [facility] ,Color UrineDK ORANGEYELLOWClarity UrineCLEARCLEARSpecific [place] Urine1.025 1.005-1.025pH UrineCOLOR INTERFERENCE5.0-9.0Protein UrineCOLOR INTERFERENCE NEG/TRACE mg/dLGlucose Urine UACOLOR INTERFERENCENEGATIVE mg/dLBilirubin Urine COLOR INTERFERENCENEGATIVEKetones UrineCOLOR INTERFERENCENEGATIVE mg/dLBlood UrineCOLOR INTERFERENCENEGATIVENitrite UrineCOLOR INTERFERENCENEGATIVE Urobilinogen UrineCOLOR INTERFERENCE0.2-1.0 EU/dLLeukocyte Esterase UrineCOLOR INTERFERENCENEGATIVEUrine Microscopic IndicatedYESPerforming Lab:see noteML - [facility] LBURINE MICROSCOPIC ONLY Reviewed date:12/07/2024 04:07:08 PM Interpretation: Performing Lab: Notes/Report: [facility] ,WBC Urine5-10NONE SEEN #/HPFRBC Urine2-50-2 #/HPFBacteria UrineTRACENONE SEEN #/HPFMucus UrineNONE SEENNONE SEENSquamous Epithelial Cell UrineFEWNONE/RARE #/LPFCrystals Seen?None SeenNone Seen #/HPFCast Seen?NONE SEENNONE SEEN #/LPF Urine Culture IndicatedYES-FRMCPerforming Lab:see noteML - [facility] LBTroponin I High Sensitivity Reviewed date:12/07/2024 04:07:08 PM Interpretation: Performing Lab: Notes/Report: [facility] ,Troponin I High Sensitivity4.44.0-51.3 pg/mL CUT-OFF POINTS HAVE BEEN ESTABLISHED BASED ON THE FOURTH UNIVERSAL DEFINITION OF MYOCARDIAL INFARCTION. THE UPPER REFERENCE LIMIT (URL) OF TROPONIN, DEFINED THE 99TH PERCENTILE OF cTnI DISTRIBUTION IN A REFERENCE POPULATION, HAS BEEN CONFIRMED THE DECISION THRESHOLD FOR [place] DIAGNOSIS. 99TH PERCENTILE = 51.4 PG/ML NOTE: HIGH-SENSITIVITY TROPONIN ASSAY IS NOT INTENDED TO BE USED IN ISOLATION BUT SHOULD BE INTERPRETED IN CONJUNCTION WITH OTHER DIAGNOSTIC AND CLINICAL INFORMATION. Performing Lab:see noteML - [facility] LBUrine Culture - [facility] Reviewed date:12/11/2024 06:50:28 PM Interpretation: Performing Lab: Notes/Report: [facility] ,Urine Culture - FRMCSee Below For Report O:ENTFAC Isolated Urine Culture - [facility] [place] Count Organism: 1.1 Antibiotic Interpretation SANDHYA Status Urine Culture - [facility] Testing performed at [facility] Urine Culture - [id number] [place] [address] O:ENTFAC Isolated Urine Culture - [facility] [place] Count Organism: 1.1 Antibiotic Interpretation SANDHYA Status Urine Culture - [facility] Testing performed at [facility] Urine Culture - FRMCSee Below For Report O:ENTFAC Isolated Urine Culture - [facility] [place] Count Organism: 1.1 Antibiotic Interpretation SANDHYA Status Urine Culture - [facility] Testing performed at [facility] Urine Culture - FRMCSee Below For Report O:ENTFAC Isolated Urine Culture - [facility] [place] Count Organism: 1.1 Antibiotic Interpretation SANDHYA Status Urine Culture - [facility] Testing performed at [facility] Urine Culture - [facility]>100,000 O:ENTFAC Isolated Urine Culture - [facility] [place] Count Organism: 1.1 Antibiotic Interpretation SANDHYA Status Urine Culture - [facility] Testing performed at [facility] Urine Culture - [facility] O:ENTFAC Isolated Urine Culture - [facility] [place] Count Organism: 1.1 Antibiotic Interpretation SANDHYA Status Urine Culture - [facility] Testing performed at [facility] Urine Culture - [facility]* This is a corrected result. * O:ENTFAC Isolated Urine Culture - [facility] [place] Count Organism: 1.1 Antibiotic Interpretation SANDHYA Status Urine Culture - [facility] Testing performed at [facility] Urine Culture - [facility] O:ENTFAC Isolated Urine Culture - [facility] [place] Count Organism: 1.1 Antibiotic Interpretation SANDHYA Status Urine Culture - [facility] Testing performed at [facility] Urine Culture - FR[facility]CA prior result that was reported as final has been changed. O:ENTFAC Isolated Urine Culture - [facility] [place] Count Organism: 1.1 Antibiotic Interpretation SANDHYA Status Urine Culture - [facility] Testing performed at [facility] Urine Culture - FRMCSee Below For Report O:ENTFAC Isolated Urine Culture - [facility] [place] Count Organism: 1.1 Antibiotic Interpretation SANDHYA Status Urine Culture - [facility] Testing performed at [facility] Urine Culture - FRMCAmpicillin S F O:ENTFAC Isolated Urine Culture - [facility] [place] Count Organism: 1.1 Antibiotic Interpretation SANDHYA Status Urine Culture - [facility] Testing performed at [facility] Urine Culture - FRMCDaptomycin S F O:ENTFAC Isolated Urine Culture - [facility] [place] Count Organism: 1.1 Antibiotic Interpretation SANDHYA Status Urine Culture - [facility] Testing performed at [facility] Urine Culture - FRMCLevofloxacin S F O:ENTFAC Isolated Urine Culture - [facility] [place] Count Organism: 1.1 Antibiotic Interpretation SANDHYA Status Urine Culture - [facility] Testing performed at [facility] Urine Culture - FRMCLinezolid S F O:ENTFAC Isolated Urine Culture - [facility] [place] Count Organism: 1.1 Antibiotic Interpretation SANDHYA Status Urine Culture - [facility] Testing performed at [facility] Urine Culture - FRMCNitrofurantoin S F O:ENTFAC Isolated Urine Culture - [facility] [place] Count Organism: 1.1 Antibiotic Interpretation SANDHYA Status Urine Culture - [facility] Testing performed at [facility] Urine Culture - FRMCPenicillin S F O:ENTFAC Isolated Urine Culture - [facility] [place] Count Organism: 1.1 Antibiotic Interpretation SANDHYA Status Urine Culture - [facility] Testing performed at [facility] Urine Culture - FRMCTetracycline R F O:ENTFAC Isolated Urine Culture - [facility] [place] Count Organism: 1.1 Antibiotic Interpretation SANDHYA Status Urine Culture - [facility] Testing performed at [facility] Urine Culture - FRMCVancomycin S F O:ENTFAC Isolated Urine Culture - [facility] [place] Count Organism: 1.1 Antibiotic Interpretation SANDHYA Status Urine Culture - [facility] Testing performed at [facility] Urine Culture - FRMCCiprofloxacin S F O:ENTFAC Isolated Urine Culture - [facility] [place] Count Organism: 1.1 Antibiotic Interpretation SANDHYA Status Urine Culture - [facility] Testing performed at [facility] Performing Lab:see note ML - [facility] LB SEE REPORT - Farm Management Agent Id information not found for OBX-specific technical training manager legend ECG 12 lead Reviewed date:12/08/2024 03:28:41 PM Interpretation: Performing Lab: Notes/Report: Source Facility: [facility]-[address] [place] [address] [place] [address] Electrocardiograph Report Signed Patient: JUAN GARCIA MR#: [id number] : 1990 Acct:[id number] Age/Sex: 34 / F ADM Date: 12/07/24 Loc: ER Attending Dr: Ordering Physician: Ronda Fernandez Date of Service: 12/07/24 Procedure(s): ECG 12 lead Accession Number(s): [id number] cc: [facility] Test Date: 2024-12-07 Pat Name: JUAN GARCIA Department: Room: - Gender: Female Eyeglass Maker: : 1990 Requested By: BRITT ALAS Order Number: [id number] Reading MD: JAMES HODGES M.D. Measurements Intervals [place] Rate: 64 P: 72 TX: 128 QRS: 84 QRSD: 84 T: 46 QT: 428 QTc: 438 Interpretive Statements 1100 Sinus rhythm 9110 normal ECG Compared to ECG 11/21/2024 11:00:20 No significant changes Electronically Signed On 12-07-2024 19:20:01 EDT by JAMES HODGES M.D. Dictated By: JAMES HODGES Signed By: 12/07/24 1920 DD/ 1418 TD/TT: County Extension Agent:ARABELLA chest 1V Reviewed date:12/07/2024 04:07:08 PM Interpretation: Performing Lab: Notes/Report: Source Facility: [facility]-[address] [place] [address] [place] [address] XRay Report Signed Patient: JUAN GARCIA MR#: [id number] : 1990 Acct:[id number] Age/Sex: 34 / F ADM Date: 12/07/24 Loc: ER Attending Dr: Ordering Physician: Ronda Fernandez Date of Service: 12/07/24 Procedure(s): XR chest 1V Accession Number(s): [id number] cc: Britt Alas M.D.; Ronda Fernandez [place] [address] Patient Name: JUAN GARCIA MRN: [id number] date: 1990 Sex: F Assigned Patient Location: ER Current Patient Location: ER Accession/Order Number: [id number] Exam Date: 12/07/2024 15:15 Report Date: 12/07/2024 [...] Hutchinson M.D. 12/07/2024 3:58 PM Dictation Location: [place] [address] Electronically authenticated by: [id number] Y Date: 12/07/2024 15:58 Dictated By: Roddy Hutchinson M.D. Signed By: 12/07/24 1601 DD/ 1558 TD/TT: County Extension Agent:CT angio chest Reviewed date:12/07/2024 04:58:20 PM Interpretation: Performing Lab: Notes/Report: Source Facility: [place] [address] CT Scan Report Signed Patient: JUAN GARCIA MR#: [id number] : 1990 Acct:[id number] Age/Sex: 34 / F ADM Date: 12/07/24 Loc: ER Attending Dr: Ordering Physician: Ronda Fernandez Date of Service: 12/07/24 Procedure(s): CT angio chest Accession Number(s): [id number] cc: Britt Alas M.D. [address] [address] Patient Name: JUAN GARCIA MRN: [facility]:[id number] date: 1990 Sex: F Assigned Patient Location: ER Current Patient Location: ER Accession/Order Number: [id number] Exam Date: 12/07/2024 15:42 Report Date: 12/07/2024 [...] Lundberg M.D. 12/07/2024 4:38 PM Dictation Location: [place] [address] Electronically authenticated by: [id number] Y Date: 12/07/2024 16:38 Dictated By: Tio Lundberg M.D. Signed By: 12/07/24 1640 DD/ 1638 TD/TT: County Extension Agent:ECG 12 lead Reviewed date:12/08/2024 03:28:41 PM Interpretation: Performing Lab: Notes/Report: Source Facility: [facility]-[address] [place] [address] [place] [address] Electrocardiograph Report Signed Patient: JUAN GARCIA MR#: [id number] : 1990 Acct:[id number] Age/Sex: 34 / F ADM Date: 12/07/24 Loc: ER Attending Dr: Ordering Physician: Ronda Fernandez Date of Service: 12/07/24 Procedure(s): ECG 12 lead Accession Number(s): [id number] cc: [facility] Test Date: 2024-12-07 Pat Name: JUAN GARCIA Department: Room: - Gender: Female Eyeglass Maker: : 1990 Requested By: BRITT ALAS Order Number: [id number] Reading MD: JAMES HODGES M.D. Measurements Intervals [place] Rate: 72 P: 69 TX: 124 QRS: 81 QRSD: 82 T: 37 QT: 412 QTc: 436 Interpretive Statements 1100 Sinus rhythm 9110 normal ECG Compared to ECG 12/07/2024 14:18:31 No significant changes Electronically Signed On 12-07-2024 19:20:04 EDT by JAMES HODGES M.D. Dictated By: JAMES HODGES Signed By: 12/07/24 1920 DD/ 1456 TD/TT: County Extension Agent:Troponin I High Sensitivity Reviewed date:12/07/2024 04:58:20 PM Interpretation: Performing Lab: Notes/Report: [facility] ,Troponin I High Sensitivity4.04.0-51.3 pg/mL CUT-OFF POINTS HAVE BEEN ESTABLISHED BASED ON THE FOURTH UNIVERSAL DEFINITION OF MYOCARDIAL INFARCTION. THE UPPER REFERENCE LIMIT (URL) OF TROPONIN, DEFINED THE 99TH PERCENTILE OF cTnI DISTRIBUTION IN A REFERENCE POPULATION, HAS BEEN CONFIRMED THE DECISION THRESHOLD FOR TN DIAGNOSIS. 99TH PERCENTILE = 51.4 PG/ML NOTE: HIGH-SENSITIVITY TROPONIN ASSAY IS NOT INTENDED TO BE USED IN ISOLATION BUT SHOULD BE INTERPRETED IN CONJUNCTION WITH OTHER DIAGNOSTIC AND CLINICAL INFORMATION. Performing Lab:see noteML - [facility] LBCBC AUTO DIFF Reviewed date:12/27/2024 07:03:43 PM Interpretation: Performing Lab: Notes/Report: [facility] ,White Blood Count5.44.0-11.0 10 3/uLRed Blood Count3.494.20-5.40 10 6/uL Aiobwskpeo04.712.0-16.0 g/uHPzizlcwdyj08.536.0-48.0 %Mean Corpuscular Qiuxat82.1 81.0-99.0 fLMean Corpuscular Apewurvsxv30.726.7-34.0 pgMean Corpuscular HGB Conc 32.929.9-35.2 g/dLRed Cell Distribution Width16.311.0-15.0 %Platelet Dloto388 150-450 10 3/uLMean Platelet Kqdeat03.09.5-13.5 fLNeutrophils Percent Auto70.9 43.0-75.0 %Lymphocytes Percent Auto21.420.5-60.0 %Monocytes Percent Auto4.51.7- 12.0 %Eosinophils Percent Auto2.60.9-7.0 %Basophils Percent Auto0.40.2-2.0 % Immature Granulocytes Pct Auto0.20.0-0.5 %Neutrophils Absolute Auto3.81.4-6.5 10 3/uLLymphocytes Absolute Auto1.21.2-3.8 10 3/uLMonocytes Absolute Auto0.20.3- 0.8 10 3/uLEosinophils Absolute Auto0.10.0-0.7 10 3/uLBasophils Absolute Auto0.0 0.0-0.1 10 3/uLImmature Granulocytes Abs Auto0.010.00-0.03 10 3/uLPerforming Lab:see noteML - [facility] LBPROF 14(COMP METB) Reviewed date:12/27/2024 07:03:43 PM Interpretation: Performing Lab: Notes/Report: [facility] ,Glyion425798-788 mmol/LPotassium3.73.5-5.1 mmol/CIqpoxfhp61586-243 mmol/LCarbon Xwyzbtj37.421.0-32.0 mmol/LAnion Gap9.8Faruskg9035-229 mg/dLBlood Urea Nitrogen 11.07.0-18.0 mg/dLCreatinine0.670.55-1.02 mg/dLEstimated GFR ( [place]>60 >=60 mL/min/1.73m 2Estimated GFR (Non- Caroline>60>=60 mL/min/1.73m 2BUN Creatinine Ratio16.8Middwom0.78.5-10.1 mg/dLBilirubin Total0.30.2-1.0 mg/dL Aspartate Amino Wyeptzfzodr7503-62 U/LAlanine Czatzjychkzwshlf7187-68 U/L Alkaline Ywrpldnussj3968-951 U/LTotal Protein6.36.4-8.2 g/dLAlbumin Level3.33.4- 5.0 g/dLGlobulin3.0Albumin Globulin Ratio1.1Performing Lab:see noteML - [facility] LBCT abdomen pelvis wo con Reviewed date:12/27/2024 07:03:43 PM Interpretation: Performing Lab: Notes/Report: Source Facility: [place] [address] CT Scan Report Signed Patient: JUAN GARCIA MR#: [id number] : 1990 Acct:[id number] Age/Sex: 34 / F ADM Date: 12/27/24 Loc: ER Attending Dr: Ordering Physician: Otilio Klein Date of Service: 12/27/24 Procedure(s): CT abdomen pelvis wo con Accession Number(s): [id number] cc: Britt Alas M.D. [place] [address] Patient Name: JUAN GARCIA MRN: [id number] date: 1990 Sex: F Assigned Patient Location: ER Current Patient Location: ER Accession/Order Number: [id number] Exam Date: 12/27/2024 11:50 Report Date: 12/27/2024 12:39 At the request of: OTILIO KLEIN DO Procedure: CT abdomen pelvis wo con CT ABDOMEN AND PELVIS WITHOUT CONTRAST COMPARISON: 12/17/2024 CLINICAL DATA: Abdominal pain, nausea and constipation. Recent small bowel obstruction with reported surgery. Spiral images were obtained through the abdomen and pelvis without contrast. This CT exam was performed using one or more following dose reduction techniques: Automated exposure control, adjustment of the mA and/or kV according to patient size, or use of iterative reconstruction technique. Limited cuts through the lung bases show no contributory findings. Assessment of the abdominal organs is slightly limited by the absence of contrast. There are multiple scattered hypodensities within the liver that were also seen previously and may be cysts. The gallbladder is surgically absent. No common duct stones are noted. The spleen, pancreas and adrenal glands show no acute findings. There is a punctate stone at the inferior pole of the right kidney. No hydronephrosis is seen. The abdominal aorta is normal caliber. A few small lymph nodes are visualized. No ascites is seen. There are postoperative changes of bariatric surgery. There are borderline caliber small bowel loops that contain air and/or fluid. No wall thickening is seen. There is air and fluid at the ascending colon. There is a mild air and stool at the transverse and descending colon. The bony structures are intact. Images through the pelvis show more normal caliber small bowel loops containing fluid. There is prior appendectomy. Mild rectosigmoid stool is visualized. No diverticular disease is noted. The uterus appears to be surgically absent. There are no urinary bladder abnormalities for the degree of distention. No ascites is identified. CT/CT abdomen pelvis wo con IMPRESSION: CONTINUED SUSPECTED HEPATIC CYSTS. RIGHT NEPHROLITHIASIS, WITHOUT OBSTRUCTION. BORDERLINE DISTENDED SMALL BOWEL LOOPS. GIVEN THE HISTORY OF INTERVAL SURGERY, THIS MIGHT BE ILEUS HOWEVER EARLY OR PARTIAL SMALL BOWEL OBSTRUCTION IS NOT COMPLETELY EXCLUDED. FOLLOW-UP IS THEREFORE SUGGESTED. Impression dictated by: Maricruz Hutchinson M.D. 12/27/2024 12:39 PM Dictation Location: [place] [address] Electronically authenticated by: [id number] Y Date: 12/27/2024 12:39 Dictated By: Maricruz Hutchinson M.D. Signed By: 12/27/24 1242 DD/ 1239 TD/TT: County Extension Agent:AMYLASE (Not yet reviewed by provider) Interpretation: Performing Lab: Notes/Report: [facility] ,Ndnpdbx6280-659 U/LPerforming Lab:see noteML - [facility] LBCBC AUTO DIFF (Not yet reviewed by provider) Interpretation: Performing Lab: Notes/Report: [facility] ,White Blood Count2.44.0-11.0 10 3/uLRed Blood Count3.584.20-5.40 10 6/uL Pegnoekzyp79.012.0-16.0 g/wYOijelgrrvw40.736.0-48.0 %Mean Corpuscular Revwzn82.1 81.0-99.0 fLMean Corpuscular Uqeouzushq82.726.7-34.0 pgMean Corpuscular HGB Conc 32.629.9-35.2 g/dLRed Cell Distribution Width15.611.0-15.0 %Platelet Aldhv415 150-450 10 3/uLMean Platelet Ozgpug53.59.5-13.5 fLPerforming Lab:see note - [facility] LBLIPASE (Not yet reviewed by provider) Interpretation: Performing Lab: Notes/Report: [facility] ,Ejjada99.016.0-77.0 U/LPerforming Lab:see noteML - [facility] LB LIVER PROFILE (Not yet reviewed by provider) Interpretation: Performing Lab: Notes/Report: [facility] ,Bilirubin Total0.30.2-1.0 mg/dLBilirubin Direct0.10.0-0.2 mg/dLAspartate Amino Fdubixlokqp5309-51 U/LAlanine Tgnsbykqqyqjvimf6692-52 U/LAlkaline Qpisfddvefw87 46-116 U/LTotal Protein6.26.4-8.2 g/dLAlbumin Level3.43.4-5.0 g/dLGlobulin2.8 Albumin Globulin Ratio1.2Performing Lab:see noteML - [facility] LB PROF CHEM 8 (BAS METB) (Not yet reviewed by provider) Interpretation: Performing Lab: Notes/Report: [facility] ,Vrejmm519034-630 mmol/LPotassium3.93.5-5.1 mmol/GFkzgnibs75598-405 mmol/LCarbon Fifzaoa93.621.0-32.0 mmol/LAnion Gap13.9Yxdnudy0119-156 mg/dLBlood Urea Nitrogen7.07.0-18.0 mg/dLCreatinine0.690.55-1.02 mg/dLEstimated GFR ( [place]>60>=60 mL/min/1.73m 2Estimated GFR (Non- Caroline>60>=60 mL/min/1.73m 2BUN Creatinine Ratio10.3Hexpchi1.08.5-10.1 mg/dLPerforming Lab:see note - [facility] LBBlood Culture 1 Reviewed date:09/24/2024 07:41:50 PM Interpretation: Performing Lab: Notes/Report: [facility] ,Blood Culture 1See Below For Report NG5D NO GROWTH AT 5 DAYS.^NO GROWTH AT 5 DAYS. Blood Culture 1 Performing Lab:see note - [facility] LBBlood Culture 2 Reviewed date:09/04/2024 02:45:30 PM Interpretation: Performing Lab: Notes/Report: LEFT WRIST [facility] ,Blood Culture 2See Below For Report Blood Culture 2 NG5D NO GROWTH AT 5 DAYS.^NO GROWTH AT 5 DAYS. Performing Lab:see [facility] LBPROF 14(COMP METB) Reviewed date:08/28/2024 06:06:36 PM Interpretation: Performing Lab: Notes/Report: [facility] ,Mficof222369-254 mmol/LPotassium3.13.5-5.1 mmol/WBnebruol80708-532 mmol/LCarbon Gqifqiz18.621.0-32.0 mmol/LAnion Gap19.9Tdexekc1182-457 mg/dLBlood Urea Nitrogen9.07.0-18.0 mg/dLCreatinine0.630.55-1.02 mg/dLEstimated GFR ( Shelby>60>=60 mL/min/1.73m 2Estimated GFR (Non- Caroline>60>=60 mL/min/1.73m 2BUN Creatinine Ratio14.3Wxkmviq8.48.5-10.1 mg/dLBilirubin Total0.50.2-1.0 mg/dL Aspartate Amino Plgviwpqxiz8847-05 U/LAlanine Qcyosnnwjmcrmlaa8290-04 U/L Alkaline Htnicyqhxdu40013-099 U/LTotal Protein6.26.4-8.2 g/dLAlbumin Level2.8 3.4-5.0 g/dLGlobulin3.4Albumin Globulin Ratio0.8Performing Lab:see noteML - [facility] LBCBC AUTO DIFF Reviewed date:08/28/2024 06:06:36 PM Interpretation: Performing Lab: Notes/Report: [facility] ,White Blood Count5.24.0-11.0 10 3/uLRed Blood Count4.254.20-5.40 10 6/uL Biyxxmeqdd10.712.0-16.0 g/ePBmrfsqtzqi45.836.0-48.0 %Mean Corpuscular Sshsfq54.3 81.0-99.0 fLMean Corpuscular Kowqnomcrw10.926.7-34.0 pgMean Corpuscular HGB Conc 32.729.9-35.2 g/dLRed Cell Distribution Width13.611.0-15.0 %Platelet Buytu971 150-450 10 3/uLMean Platelet Qpwhfm47.09.5-13.5 fLPerforming Lab:see noteML - [facility] LBTSH Reviewed date:03/29/2024 09:46:23 PM Interpretation: Performing Lab: Notes/Report: [facility] ,Thyroid Stimulating Hormone0.6220.358-3.740 uIU/mLPerforming Lab:see noteML - [facility] LBPROF 14(COMP METB) Reviewed date:03/29/2024 09:46:23 PM Interpretation: Performing Lab: Notes/Report: [facility] ,Hvwhuc880570-287 mmol/LPotassium3.83.5-5.1 mmol/MIkhqzgnz58289-640 mmol/LCarbon Atjnmhr87.721.0-32.0 mmol/LAnion Gap13.2Sluklep8891-396 mg/dLBlood Urea Wegvmbdf70.07.0-18.0 mg/dLCreatinine0.940.55-1.02 mg/dLEstimated GFR ( Shelby>60>=60 mL/min/1.73m 2Estimated GFR (Non- Caroline>60>=60 mL/min/1.73m 2BUN Creatinine Ratio13.2Qacwkcv0.48.5-10.1 mg/dLBilirubin Total0.30.2-1.0 mg/dL Aspartate Amino Zqiaidhpttm6655-04 U/LAlanine Eekivybegaadiutq9516-32 U/L Alkaline Tzkvwthklnh8062-008 U/LTotal Protein6.46.4-8.2 g/dLAlbumin Level3.53.4- 5.0 g/dLGlobulin2.9Albumin Globulin Ratio1.2Performing Lab:see noteML - [facility] LBMAGNESIUM Reviewed date:03/29/2024 09:46:23 PM Interpretation: Performing Lab: Notes/Report: [facility] ,Magnesium1.81.8-2.4 mg/dLPerforming Lab:see noteML - [facility] LB HCG Qualitative Urine Reviewed date:08/02/2024 05:29:08 PM Interpretation: Performing Lab: Notes/Report: [facility] ,HCG Qualitative Urine*NEGATIVENEGATIVEPerforming Lab:see noteML - [facility] LBXR acute abdomen series Reviewed date:08/02/2024 05:29:08 PM Interpretation: Performing Lab: Notes/Report: Source Facility: [place] [address] XRay Report Signed Patient: JUAN GARCIA MR#: [id number] : 1990 Acct:[id number] Age/Sex: 34 / F ADM Date: 08/02/24 Loc: ER Attending Dr: Ordering Physician: Massimo Damon Date of Service: 08/02/24 Procedure(s): XR acute abdomen series Accession Number(s): [id number] cc: Britt Alas M.D.; Massimo Damon [place] [id number] Patient Name: JUAN GARCIA MRN: [id number] date: 1990 Sex: F Assigned Patient Location: ER Current Patient Location: ER Accession/Order Number: [id number] Exam Date: 08/02/2024 09:12 Report Date: 08/02/2024 [...] Hutchinson M.D. 08/02/2024 9:19 AM Dictation Location: [place] [address] Electronically authenticated by: [id number] Y Date: 08/02/2024 09:19 Dictated By: Maricruz Hutchinson M.D. Signed By: 08/02/24 0922 DD/ 8 TD/TT: County Extension Agent:LIPASE Reviewed date:08/15/2024 06:53:11 PM Interpretation: Performing Lab: Notes/Report: [facility] ,Rnzmsb60.016.0-77.0 U/LPerforming Lab:see noteML - [facility] LB Aerobe ID + Suscept [...] LC - [facility] LB SEE REPORT - Farm Management Agent Id information not found for OBX-specific technical training manager legend Anaerobe Identification Only Reviewed date:08/21/2024 08:08:02 PM Interpretation: Performing Lab: Notes/Report: [facility] ,Anaerobe Identification OnlySee Below For Report Anaerobe Identification Only Anaerobe Identification OnlySpecimen has been received and testing has been initiated. Anaerobe Identification Only Anaerobe Identification Only Anaerobe Identification Only Anaerobe Identification OnlyNo anaerobes recovered. Anaerobe Identification Only Anaerobe Identification OnlyPerformed at: [facility] Anaerobe Identification Only Anaerobe Identification [id number] [place], [place] [id number] Anaerobe Identification Only Anaerobe Identification OnlyLab Director: Daron Almanza PhD, Phone: [phone] Anaerobe Identification Only Performing Lab:see note LC - [facility] LB SEE REPORT - Farm Management Agent Id information not found for OBX-specific technical training manager legend ECG 12 lead Reviewed date:08/16/2024 07:06:02 PM Interpretation: Performing Lab: Notes/Report: Source Facility: [place] [address] [place] [address] Electrocardiograph Report Signed Patient: JUAN GARCIA MR#: [id number] : 1990 Acct:[id number] Age/Sex: 34 / F ADM Date: 08/15/24 Loc: ER Attending Dr: Ordering Physician: Domenica Romeo Date of Service: 08/15/24 Procedure(s): ECG 12 lead Accession Number(s): [id number] cc: [facility] Test Date: 2024-08-15 Pat Name: JUAN GARCIA Department: Room: - Gender: Female Eyeglass Maker: : 1990 Requested By: [id number] Order Number: [id number] Reading MD: JAMES HODGES M.D. Measurements Intervals [place] Rate: 82 P: 45 TX: 142 QRS: 75 QRSD: 84 T: 44 QT: 402 QTc: 440 Interpretive Statements 1100 Sinus rhythm 9110 normal ECG Compared to ECG 06/21/2024 11:24:35 No significant changes Electronically Signed On 08-16-2024 6:37:55 EDT by JAMES HODGES M.D. Dictated By: JAMES HODGES Signed By: 08/16/24 0637 DD/ 1303 TD/TT: County Extension Agent:Aerobe ID + Suscept Reviewed date:08/19/2024 07:52:14 PM [...] SANDHYA Status Aerobe ID + SusceptPerformed at: [facility] Aerobe ID + Suscept O:GNR Isolated O:KLEBPN Isolated Organism: 1.2 Antibiotic Interpretation SANDHYA Status Aerobe ID + [id number] [place], [place] [id number] Aerobe ID + Suscept O:GNR Isolated O:KLEBPN Isolated Organism: 1.2 Antibiotic Interpretation SANDHYA Status Aerobe ID + SusceptLab Director: Daron Almanza PhD, Phone: [phone] Aerobe ID + Suscept O:GNR Isolated O:KLEBPN [...] LC - [facility] LB SEE REPORT - Farm Management Agent Id information not found for OBX-specific technical training manager legend Aerobe ID + Suscept Reviewed date:08/19/2024 [...] SANDHYA Status Aerobe ID + SusceptPerformed at: - [facility] Aerobe ID + Suscept O:GNR Isolated O:KLEBPN Isolated Organism: 1.2 Antibiotic Interpretation SANDHYA Status Aerobe ID + [id number] [place], [place] [id number] Aerobe ID + Suscept O:GNR Isolated O:KLEBPN Isolated Organism: 1.2 Antibiotic Interpretation SANDHYA Status Aerobe ID + SusceptLab Director: Daron Almanza PhD, Phone: [phone] Aerobe ID + Suscept O:GNR Isolated O:KLEBPN [...] LC - [facility] LB SEE REPORT - Farm Management Agent Id information not found for OBX-specific technical training manager legend CBC AUTO DIFF Reviewed date:08/16/2024 07:06:02 PM Interpretation: Performing Lab: Notes/Report: [facility] ,White Blood Count9.14.0-11.0 10 3/uLRed Blood Count3.064.20-5.40 10 6/uL Hemoglobin9.812.0-16.0 g/hOPaeqzmuhfh41.236.0-48.0 %Mean Corpuscular Ogyunx07.2 81.0-99.0 fLMean Corpuscular Vvilgozhmg95.026.7-34.0 pgMean Corpuscular HGB Conc 34.829.9-35.2 g/dLRed Cell Distribution Width13.611.0-15.0 %Platelet Fkrds276 150-450 10 3/uLMean Platelet Ghhpdr25.19.5-13.5 fLNeutrophils Percent Auto82.6 43.0-75.0 %Lymphocytes Percent Auto11.620.5-60.0 %Monocytes Percent Auto4.81.7- 12.0 %Eosinophils Percent Auto0.60.9-7.0 %Basophils Percent Auto0.10.2-2.0 % Immature Granulocytes Pct Auto0.30.0-0.5 %Neutrophils Absolute Auto7.51.4-6.5 10 3/uLLymphocytes Absolute Auto1.11.2-3.8 10 3/uLMonocytes Absolute Auto0.40.3- 0.8 10 3/uLEosinophils Absolute Auto0.10.0-0.7 10 3/uLBasophils Absolute Auto0.0 0.0-0.1 10 3/uLImmature Granulocytes Abs Auto0.030.00-0.03 10 3/uLPerforming Lab:see noteML - [facility] LBLACTATE or LACTIC ACID Reviewed date:08/16/2024 07:06:02 PM Interpretation: Performing Lab: Notes/Report: [facility] ,Lactate/Lactic Acid0.60.4-2.0 mmol/LPerforming Lab:see noteML - [facility] LBDRUG SCREEN RAPID (URINE) Reviewed date:08/28/2024 06:06:36 PM Interpretation: Performing Lab: Notes/Report: [facility] ,Cannabinoid Screen UrineNEGATIVENEGATIVEPhencyclidine Screen UrineNEGATIVE NEGATIVECocaine Screen [...] TCA (Trycyclic Antidepressants): 300 ng/mL Performing Lab:see noteML - [facility] LBLACTATE or LACTIC ACID Reviewed date:08/28/2024 06:06:36 PM Interpretation: Performing Lab: Notes/Report: [facility] ,Lactate/Lactic Acid1.40.4-2.0 mmol/LPerforming Lab:see note - [facility] LBLIPASE Reviewed date:08/28/2024 06:06:36 PM Interpretation: Performing Lab: Notes/Report: [facility] ,Dnhaez34.016.0-77.0 U/LPerforming Lab:see note - [facility] LB Manual Differential Reviewed date:08/28/2024 06:06:36 PM Interpretation: Performing Lab: Notes/Report: [facility] ,Segmented Neutrophils % Mjmmaf55.043.0-75.0Lymphocytes Percent Nmdlaj85.020.5- 60.0 %Monocytes Percent Manual2.01.7-12.0 %Eosinophils Percent Manual0.00.9-7.0 %Basophils Percent Manual2.00.2-2.0 %Segmented Neut Absolute Manual4.471.4-6.5 10 3/uLLymphocytes Absolute Manual0.521.20-3.80 10 3/uLMonocytes Absolute Manual 0.100.30-0.80 10 3/uLEosinophils Absolute Manual0.000.00-0.70 10 3/uLBasophils Abs Manual0.100.00-0.10 10 3/uLPerforming Lab:see note - [facility] LBAerobe ID + Suscept Reviewed date:09/02/2024 02:54:42 [...] SANDHYA Status Aerobe ID + SusceptPerformed at: [facility] Aerobe ID + Suscept Organism: Gram negative jeffery : O:GNR Isolated O:KLEBPN Isolated Organism: 1.2 Antibiotic Interpretation SANDHYA Status Aerobe ID + [id number] [place], [place] [id number] Aerobe ID + Suscept Organism: Gram negative jeffery : O:GNR Isolated O:KLEBPN Isolated Organism: 1.2 Antibiotic Interpretation SANDHYA Status Aerobe ID + SusceptLab Director: Daron Almanza PhD, Phone: [phone] Aerobe ID + Suscept Organism: Gram negative [...] LC - [facility] LB SEE REPORT - Farm Management Agent Id information not found for OBX-specific technical training manager legend Anaerobe Identification Only Reviewed date:09/04/2024 07:21:01 [...] Only WILL FOLLOW Anaerobe Identification OnlyPerformed at: [facility] Anaerobe Identification Only WILL FOLLOW Anaerobe Identification [id number] [place], [place] [id number] Anaerobe Identification Only WILL FOLLOW Anaerobe Identification OnlyLab Director: Daron Almanza PhD, Phone: [phone] Anaerobe Identification Only WILL FOLLOW Performing Lab:see note LC - [facility] LB SEE REPORT - Farm Management Agent Id information not found for OBX-specific technical training manager legend CT abdomen pelvis w con Reviewed date:08/28/2024 06:06:36 PM Interpretation: Performing Lab: Notes/Report: Source Facility: [place] [address] CT Scan Report Signed Patient: JUAN GARCIA MR#: [id number] : 1990 Acct:[id number] Age/Sex: 34 / F ADM Date: 08/28/24 Loc: ER Attending Dr: Ordering Physician: Domenica Romeo Date of Service: 08/28/24 Procedure(s): CT abdomen pelvis w con Accession Number(s): [id number] cc: Britt Alas M.D. [place] [address] Patient Name: JUAN GARCIA MRN: [id number] date: 1990 Sex: F Assigned Patient Location: ER Current Patient Location: ER Accession/Order Number: [id number] Exam Date: 08/28/2024 16:40 Report Date: 08/28/2024 16:46 At the request of: DOMENICA ROMEO IRISH MOSS OPERATOR Procedure: CT abdomen pelvis w con CT [...] Hutchinson M.D. 08/28/2024 4:46 PM Dictation Location: [place] [address] Electronically authenticated by: [id number] Y Date: 08/28/2024 16:46 Dictated By: Roddy Hutchinson M.D. Signed By: 08/28/24 1649 DD/ 1646 TD/TT: County Extension Agent:Aerobe ID + Suscept Reviewed date:09/04/2024 07:21:01 PM [...] LC - [facility] LB SEE REPORT - Farm Management Agent Id information not found for OBX-specific technical training manager legend Blood Culture 1 Reviewed date:09/04/2024 07:21:01 PM Interpretation: Performing Lab: Notes/Report: LEFT UPPER ARM [facility] ,Blood Culture 1See Below For Report Blood Culture 1 NG5D NO GROWTH AT 5 DAYS.^NO GROWTH AT 5 DAYS. Performing Lab:see note - [facility] LBBlood Culture 2 Reviewed date:09/04/2024 07:21:01 PM Interpretation: Performing Lab: Notes/Report: KUMARI LINE [facility] ,Blood Culture 2See Below For Report NG5D NO GROWTH AT 5 DAYS.^NO GROWTH AT 5 DAYS. Blood Culture 2 Performing Lab:see note - [facility] LBMAGNESIUM Reviewed date:08/31/2024 05:12:17 PM Interpretation: Performing Lab: Notes/Report: [facility] ,Magnesium1.91.8-2.4 mg/dLPerforming Lab:see note - [facility] LB PROF CHEM 8 (BAS METB) Reviewed date:08/31/2024 05:12:17 PM Interpretation: Performing Lab: Notes/Report: [facility] ,Osxwjs555076-777 mmol/LPotassium3.53.5-5.1 mmol/MXgiteltp24024-410 mmol/LCarbon Oaslwye91.821.0-32.0 mmol/LAnion Gap13.1Emzsigy6490-310 mg/dLBlood Urea Nitrogen3.07.0-18.0 mg/dLCreatinine0.510.55-1.02 mg/dLEstimated GFR ( Shelby>60>=60 mL/min/1.73m 2Estimated GFR (Non- Caroline>60>=60 mL/min/1.73m 2BUN Creatinine Ratio5.7Dktzbpj0.28.5-10.1 mg/dLPerforming Lab:see noteML - [facility] LBCBC no Diff (Hemogram) Reviewed date:08/31/2024 05:12:17 PM Interpretation: Performing Lab: Notes/Report: [facility] ,White Blood Count3.34.0-11.0 10 3/uLRed Blood Count3.384.20-5.40 10 6/uL Ujcxfjbgfl47.112.0-16.0 g/eOWoscepgkdl85.236.0-48.0 %Mean Corpuscular Vlwqqq02.3 81.0-99.0 fLMean Corpuscular Ocojzwgleq07.926.7-34.0 pgMean Corpuscular HGB Conc 32.429.9-35.2 g/dLRed Cell Distribution Width13.711.0-15.0 %Platelet Vzbrv836 150-450 10 3/uLMean Platelet Tvsyky17.89.5-13.5 fLPerforming Lab:see [facility] LBHCG Qualitative* Reviewed date:08/31/2024 05:12:17 PM Interpretation: Performing Lab: Notes/Report: [facility] ,HCG QualitativeNEGATIVENEGATIVEPerforming Lab:see note - [facility] LBCA echo doppler complete Reviewed date:09/04/2024 02:45:30 PM Interpretation: Performing Lab: Notes/Report: Source Facility: [facility]-[address] [place] [address] [place] [address] Cardiology Report Signed Patient: JUAN GARCIA MR#: [id number] : 1990 Acct:[id number] Age/Sex: 34 / F ADM Date: 08/28/24 Loc: MS 218-[address]: Kal Wilson M.D. Ordering Physician: Kal Wilson M.D. Date of Service: 09/01/24 Procedure(s): CA echo doppler complete Accession Number(s): [id number] cc: Britt Alas M.D.; Kal Wilson M.D. Patient Name: JUAN GARCIA MR#: [id number] : 1990 Exam Date: 09/01/2024 Ordering Doctor: [...] Area (VTI): 3.35 cm2, 3.28 cm2 Deceleration Comal: Pressure Half-Time: Peak Velocity(Antegrade Flow): 1.25 m/s, [...] M.D. Signed By: 09/03/241826 DD/ 24 TD/TT: County Extension Agent:ASIF AUTO DIFF Reviewed date:09/20/2024 12:30:47 PM Interpretation: Performing Lab: Notes/Report: [facility] ,White Blood Count5.24.0-11.0 10 3/uLRed Blood Count4.094.20-5.40 10 6/uL Zqhxbeekpy68.112.0-16.0 g/iMTwjzhhspfu06.436.0-48.0 %Mean Corpuscular Ftchke88.4 81.0-99.0 fLMean Corpuscular Blduawpzad53.626.7-34.0 pgMean Corpuscular HGB Conc 32.429.9-35.2 g/dLRed Cell Distribution Width14.011.0-15.0 %Platelet Eysjg857 150-450 10 3/uLMean Platelet Ovxqkd25.39.5-13.5 fLNeutrophils Percent Auto55.3 43.0-75.0 %Lymphocytes Percent Auto34.820.5-60.0 %Monocytes Percent Auto6.41.7- 12.0 %Eosinophils Percent Auto2.50.9-7.0 %Basophils Percent Auto0.80.2-2.0 % Immature Granulocytes Pct Auto0.20.0-0.5 %Neutrophils Absolute Auto2.91.4-6.5 10 3/uLLymphocytes Absolute Auto1.81.2-3.8 10 3/uLMonocytes Absolute Auto0.30.3- 0.8 10 3/uLEosinophils Absolute Auto0.10.0-0.7 10 3/uLBasophils Absolute Auto0.0 0.0-0.1 10 3/uLImmature Granulocytes Abs Auto0.010.00-0.03 10 3/uLPerforming Lab:see noteML - [facility] LBLACTATE or LACTIC ACID Reviewed date:09/20/2024 12:30:47 PM Interpretation: Performing Lab: Notes/Report: [facility] ,Lactate/Lactic Acid0.90.4-2.0 mmol/LPerforming Lab:see noteML - [facility] LBPROF CHEM 8 (BAS METB) Reviewed date:09/20/2024 12:30:47 PM Interpretation: Performing Lab: Notes/Report: [facility] ,Ofqlaj663071-225 mmol/LPotassium3.73.5-5.1 mmol/IFbasbcjc16367-310 mmol/LCarbon Iisewod88.921.0-32.0 mmol/LAnion Gap12.9Zkmllci3023-598 mg/dLBlood Urea Nitrogen7.07.0-18.0 mg/dLCreatinine0.630.55-1.02 mg/dLEstimated GFR ( Shelby>60>=60 mL/min/1.73m 2Estimated GFR (Non- Caroline>60>=60 mL/min/1.73m 2BUN Creatinine Ratio11.6Zslxtqj1.98.5-10.1 mg/dLPerforming Lab:see note - [facility] LBBlood Culture 1 Reviewed date:10/10/2024 07:54:38 PM Interpretation: Performing Lab: Notes/Report: [facility] ,Blood Culture 1See Below For Report Blood Culture 1 NG5D NO GROWTH AT 5 DAYS.^NO GROWTH AT 5 DAYS. Performing Lab:see [facility] LBBlood Culture 2 Reviewed date:10/10/2024 07:54:38 PM Interpretation: Performing Lab: Notes/Report: PEDS BOTTLE [facility] ,Blood Culture 2See Below For Report Blood Culture 2 NG5D NO GROWTH AT 5 DAYS.^NO GROWTH AT 5 DAYS. Performing Lab:see [facility] LBCRP Reviewed date:10/24/2024 02:11:49 PM Interpretation: Performing Lab: Notes/Report: [facility] ,C Reactive Protein<0.50<=0.50 mg/dLPerforming Lab:see [facility] LBPROF CHEM 8 (BAS METB) Reviewed date:10/24/2024 02:11:49 PM Interpretation: Performing Lab: Notes/Report: [facility] ,Kppcxh702411-766 mmol/LPotassium3.73.5-5.1 mmol/YTgvientz18976-968 mmol/LCarbon Jfzcdsu15.321.0-32.0 mmol/LAnion Gap15.3Rcfxagz5702-465 mg/dLBlood Urea Nitrogen4.07.0-18.0 mg/dLCreatinine0.630.55-1.02 mg/dLEstimated GFR ( Shelby>60>=60 mL/min/1.73m 2Estimated GFR (Non- Caroline>60>=60 mL/min/1.73m 2BUN Creatinine Ratio6.8Hmtttft8.38.5-10.1 mg/dLPerforming Lab:see note - [facility] LBUA RANDOM W or MICROSCOPIC Reviewed date:10/24/2024 02:11:49 PM Interpretation: Performing Lab: Notes/Report: [facility] ,Color UrineLT. YELLOWYELLOWClarity UrineCLEARCLEARSpecific [place] Urine<=1.005 1.005-1.025pH Urine6.05.0-9.0Protein UrineNEGATIVENEG/TRACE mg/dLGlucose Urine UANEGATIVENEGATIVE mg/dLBilirubin UrineNEGATIVENEGATIVEKetones UrineNEGATIVE NEGATIVE mg/dLBlood UrineNEGATIVENEGATIVENitrite UrineNEGATIVENEGATIVE Urobilinogen Urine0.20.2-1.0 EU/dLLeukocyte Esterase UrineNEGATIVENEGATIVEWBC Urine0-2NONE SEEN #/HPFRBC Urine0-20-2 #/HPFBacteria UrineTRACENONE SEEN #/HPF Mucus UrineNONE SEENNONE SEENSquamous Epithelial Cell UrineFEWNONE/RARE #/LPF Crystals Seen?None SeenNone Seen #/HPFCast Seen?NONE SEENNONE SEEN #/LPFUrine Culture IndicatedNOPerforming Lab:see note - [facility] LBHCG Qualitative* Reviewed date:10/29/2024 12:41:46 PM Interpretation: Performing Lab: Notes/Report: [facility] ,HCG QualitativeNEGATIVENEGATIVEPerforming Lab:see note - [facility] LBECG 12 lead Reviewed date:10/30/2024 05:59:55 PM Interpretation: Performing Lab: Notes/Report: Source Facility: [facility]-[address] [place] [address] [place] [address] Electrocardiograph Report Signed Patient: JUAN GARCIA MR#: [id number] : 1990 Acct:[id number] Age/Sex: 34 / F ADM Date: 10/30/24 Loc: ER Attending Dr: Ordering Physician: Barbara Willoughby Date of Service: 10/30/24 Procedure(s): ECG 12 lead Accession Number(s): [id number] cc: [facility] Test Date: 2024-10-30 Pat Name: JUAN GARCIA Department: Room: - Gender: Female Eyeglass Maker: : 1990 Requested By: 1854 Order Number: [id number] Reading MD: KATIE ALTAMIRANO Measurements Intervals [place] Rate: 82 P: 67 TX: 146 QRS: 69 QRSD: 82 T: 84 QT: 404 QTc: 443 Interpretive Statements 1100 Sinus rhythm 9110 normal ECG Compared to ECG 10/30/2024 12:56:06 No significant changes Electronically Signed On 10-30-2024 17:00:49 EDT by KATIE ALTAMIRANO Dictated By: Katie Altamirano M.D. Signed By: 10/30/24 170 DD/ 1531 TD/TT: County Extension Agent:LIVER PROFILE Reviewed date:11/15/2024 01:03:51 PM Interpretation: Performing Lab: Notes/Report: [facility] ,Bilirubin Total0.40.2-1.0 mg/dLBilirubin Direct0.10.0-0.2 mg/dLAspartate Amino Stnxixlbtam4869-87 U/LAlanine Uhinfurfihjysyrf0491-63 U/LAlkaline Dqemwzvdlpb79 46-116 U/LTotal Protein6.26.4-8.2 g/dLAlbumin Level2.93.4-5.0 g/dLGlobulin3.3 Albumin Globulin Ratio0.9Performing Lab:see noteML - [facility] LBXR chest 2V Reviewed date:11/15/2024 01:03:51 PM Interpretation: Performing Lab: Notes/Report: Source Facility: [facility]-[address] [place] [address] [place] [address] XRay Report Signed Patient: JUAN GARCIA MR#: [id number] : 1990 Acct:[id number] Age/Sex: 34 / F ADM Date: 11/14/24 Loc: ER Attending Dr: Ordering Physician: Otilio Klein Date of Service: 11/14/24 Procedure(s): XR chest 2V Accession Number(s): [id number] cc: Britt Alas M.D.; Otilio Klein [place] [address] Patient Name: JUAN GARCIA MRN: [id number] date: 1990 Sex: F Assigned Patient Location: ED.MAIN Current Patient Location: ED.MAIN Accession/Order Number: [id number] Exam Date: 11/14/2024 16:48 Report Date: 11/14/2024 [...] Davis M.D. 11/14/2024 5:27 PM Dictation Location: [place] [address] Electronically authenticated by: [id number] Y Date: 11/14/2024 17:27 Dictated By: Massimo Davis D.O. Signed By: 11/14/24 1730 DD/ 172 TD/TT: County Extension Agent:CT angio chest Reviewed date:11/15/2024 01:03:51 PM Interpretation: Performing Lab: Notes/Report: Source Facility: [place] [address] CT Scan Report Signed Patient: JUAN GARCIA MR#: [id number] : 1990 Acct:[id number] Age/Sex: 34 / F ADM Date: 11/14/24 Loc: ER Attending Dr: Ordering Physician: Otilio Klein Date of Service: 11/14/24 Procedure(s): CT angio chest Accession Number(s): [id number] cc: Britt Alas M.D. [place] [id number] Patient Name: JUAN GARCIA MRN: [id number] date: 1990 Sex: F Assigned Patient Location: ED.MAIN Current Patient Location: ED.MAIN Accession/Order Number: [id number] Exam Date: 11/14/2024 18:33 Report Date: 11/14/2024 [...] Davis M.D. 11/14/2024 7:14 PM Dictation Location: [place] [address] Electronically authenticated by: [id number] Y Date: 11/14/2024 19:14 Dictated By: Massimo Davis D.O. Signed By: 11/14/241916 DD/ 13 TD/TT: County Extension Agent:CT angio abdomen pelvis Reviewed date:11/15/2024 01:03:51 PM Interpretation: Performing Lab: Notes/Report: Source Facility: [place] [address] CT Scan Report Signed Patient: JUAN GARCIA MR#: [id number] : 1990 Acct:[id number] Age/Sex: 34 / F ADM Date: 11/14/24 Loc: ER Attending Dr: Ordering Physician: Otilio Klein Date of Service: 11/14/24 Procedure(s): CT angio abdomen pelvis Accession Number(s): [id number] cc: Britt Alas M.D. [place] [address] Patient Name: JUAN GARCIA MRN: [id number] date: 1990 Sex: F Assigned Patient Location: ED.MAIN Current Patient Location: ED.MAIN Accession/Order Number: [id number] Exam Date: 11/14/2024 18:33 Report Date: 11/14/2024 [...] Davis M.D. 11/14/2024 7:14 PM [facility] Electron[facility]ated by: [id number] Y Date: 11/14/2024 19:14 Dictated By: Massimo Davis D.O. Signed By: 11/14/241916 DD/ 13 TD/TT: County Extension Agent:Troponin I High Sensitivity Reviewed date:11/15/2024 01:03:51 PM Interpretation: Performing Lab: Notes/Report: [facility] ,Troponin I High Sensitivity5.74.0-51.3 pg/mL CUT-OFF POINTS HAVE BEEN ESTABLISHED BASED ON THE FOURTH UNIVERSAL DEFINITION OF MYOCARDIAL INFARCTION. THE UPPER REFERENCE LIMIT (URL) OF TROPONIN, DEFINED THE 99TH PERCENTILE OF cTnI DISTRIBUTION IN A REFERENCE POPULATION, HAS BEEN CONFIRMED THE DECISION THRESHOLD FOR [place] DIAGNOSIS. 99TH PERCENTILE = 51.4 PG/ML NOTE: HIGH-SENSITIVITY TROPONIN ASSAY IS NOT INTENDED TO BE USED IN ISOLATION BUT SHOULD BE INTERPRETED IN CONJUNCTION WITH OTHER DIAGNOSTIC AND CLINICAL INFORMATION. Performing Lab:see noteML - [facility] LBPROF 14(COMP METB) Reviewed date:11/30/2024 07:01:13 PM Interpretation: Performing Lab: Notes/Report: [facility] ,Foudla146105-539 mmol/LPotassium3.83.5-5.1 mmol/KOilhlcvg43247-271 mmol/LCarbon Jjtliak73.721.0-32.0 mmol/LAnion Gap15.0Xjeqfrg9152-639 mg/dLBlood Urea Nitrogen9.07.0-18.0 mg/dLCreatinine0.660.55-1.02 mg/dLEstimated GFR ( Shelby>60>=60 mL/min/1.73m 2Estimated GFR (Non- Caroline>60>=60 mL/min/1.73m 2BUN Creatinine Ratio13.8Yjlccqz4.28.5-10.1 mg/dLBilirubin Total0.30.2-1.0 mg/dL Aspartate Amino Odtwxpaoktm4955-04 U/LAlanine Yrlqhozgwkruaabq6554-14 U/L Alkaline Vxnpqwzzovc7813-066 U/LTotal Protein6.56.4-8.2 g/dLAlbumin Level3.23.4- 5.0 g/dLGlobulin3.3Albumin Globulin Ratio1.0Performing Lab:see noteML - [facility] LBURINE MICROSCOPIC ONLY Reviewed date:11/30/2024 07:01:13 PM Interpretation: Performing Lab: Notes/Report: CATH SPECIMEN [facility] ,WBC Urine0-2NONE SEEN #/HPFRBC Aksdi22-310-3 #/HPFBacteria UrineNONE SEENNONE SEEN #/HPFMucus UrineTRACENONE SEENSquamous Epithelial Cell UrineFEWNONE/RARE #/LPFCrystals Seen?SeenNone Seen #/HPFCalcium Oxalate Crystals UrineFEWCast Seen?NONE SEENNONE SEEN #/LPFUrine Culture IndicatedNOPerforming Lab:see noteML - [facility] LBPROF CHEM 8 (BAS METB) Reviewed date:12/07/2024 04:07:08 PM Interpretation: Performing Lab: Notes/Report: [facility] ,Btosvl165245-994 mmol/LPotassium4.03.5-5.1 mmol/RVajkedvc41029-792 mmol/LCarbon Iwncnnb77.621.0-32.0 mmol/LAnion Gap12.8Opgmakg3313-151 mg/dLBlood Urea Nitrogen7.07.0-18.0 mg/dLCreatinine0.860.55-1.02 mg/dLEstimated GFR ( Shelby>60>=60 mL/min/1.73m 2Estimated GFR (Non- Caroline>60>=60 mL/min/1.73m 2BUN Creatinine Ratio8.3Gkoadfi6.28.5-10.1 mg/dLPerforming Lab:see noteML - [facility] LBBNP Reviewed date:12/09/2024 03:18:43 PM Interpretation: Performing Lab: Notes/Report: [facility] ,NT Pro B Type Natriuretic Pept79.0<=450.0 pg/mLPerforming Lab:see noteML - [facility] LBCBC AUTO DIFF Reviewed date:12/09/2024 03:18:43 PM Interpretation: Performing Lab: Notes/Report: [facility] ,White Blood Count4.14.0-11.0 10 3/uLRed Blood Count3.544.20-5.40 10 6/uL Yijpybgezb87.512.0-16.0 g/nUJbpapdyxhc46.736.0-48.0 %Mean Corpuscular Mjxlbb63.5 81.0-99.0 fLMean Corpuscular Mysjiloqrp03.726.7-34.0 pgMean Corpuscular HGB Conc 33.129.9-35.2 g/dLRed Cell Distribution Width13.911.0-15.0 %Platelet Ddvza479 150-450 10 3/uLMean Platelet Ghsecg55.49.5-13.5 fLNeutrophils Percent Auto48.3 43.0-75.0 %Lymphocytes Percent Auto38.720.5-60.0 %Monocytes Percent Auto8.21.7- 12.0 %Eosinophils Percent Auto4.10.9-7.0 %Basophils Percent Auto0.70.2-2.0 % Immature Granulocytes Pct Auto0.00.0-0.5 %Neutrophils Absolute Auto2.01.4-6.5 10 3/uLLymphocytes Absolute Auto1.61.2-3.8 10 3/uLMonocytes Absolute Auto0.30.3- 0.8 10 3/uLEosinophils Absolute Auto0.20.0-0.7 10 3/uLBasophils Absolute Auto0.0 0.0-0.1 10 3/uLImmature Granulocytes Abs Auto0.000.00-0.03 10 3/uLPerforming Lab:see noteML - [facility] LBPROF CHEM 8 (BAS METB) Reviewed date:12/09/2024 03:18:43 PM Interpretation: Performing Lab: Notes/Report: [facility] ,Avzmbh668022-308 mmol/LPotassium4.03.5-5.1 mmol/BQipekuvw76246-952 mmol/LCarbon Vmxjqzf62.621.0-32.0 mmol/LAnion Gap14.3Knwxvwl5336-576 mg/dLBlood Urea Nitrogen7.07.0-18.0 mg/dLCreatinine0.830.55-1.02 mg/dLEstimated GFR ( Shelby>60>=60 mL/min/1.73m 2Estimated GFR (Non- Carloine>60>=60 mL/min/1.73m 2BUN Creatinine Ratio8.8Ysiycgn6.28.5-10.1 mg/dLPerforming Lab:see noteML - [facility] LBTroponin I High Sensitivity Reviewed date:12/09/2024 03:18:43 PM Interpretation: Performing Lab: Notes/Report: [facility] ,Troponin I High Sensitivity5.54.0-51.3 pg/mL CUT-OFF POINTS HAVE BEEN ESTABLISHED BASED ON THE FOURTH UNIVERSAL DEFINITION OF MYOCARDIAL INFARCTION. THE UPPER REFERENCE LIMIT (URL) OF TROPONIN, DEFINED THE 99TH PERCENTILE OF cTnI DISTRIBUTION IN A REFERENCE POPULATION, HAS BEEN CONFIRMED THE DECISION THRESHOLD FOR [place] DIAGNOSIS. 99TH PERCENTILE = 51.4 PG/ML NOTE: HIGH-SENSITIVITY TROPONIN ASSAY IS NOT INTENDED TO BE USED IN ISOLATION BUT SHOULD BE INTERPRETED IN CONJUNCTION WITH OTHER DIAGNOSTIC AND CLINICAL INFORMATION. Performing Lab:see noteML - [facility] LBECG 12 lead Reviewed date:12/09/2024 03:18:43 PM Interpretation: Performing Lab: Notes/Report: Source Facility: [place] [address] [place] [address] Electrocardiograph Report Signed Patient: JUAN GARCIA MR#: [id number] : 1990 Acct:[id number] Age/Sex: 34 / F ADM Date: 12/08/24 Loc: ER Attending Dr: Ordering Physician: Gideon Espinoza Date of Service: 12/08/24 Procedure(s): ECG 12 lead Accession Number(s): [id number] cc: [facility] Test Date: 2024-12-08 Pat Name: JUAN GARCIA Department: Room: - Gender: Female Eyeglass Maker: : 1990 Requested By: 1031 Order Number: [id number] Reading MD: JAMES HODGES M.D. Measurements Intervals [place] Rate: 69 P: 90 TX: 154 QRS: 83 QRSD: 84 T: 69 QT: 406 QTc: 426 Interpretive Statements 1100 Sinus rhythm 9110 normal ECG Compared to ECG 12/07/2024 14:56:19 No significant changes Electronically Signed On 12-09-2024 7:02:28 EDT by JAMES HODGES M.D. Dictated By: JAMES HODGES Signed By: 12/09/24701 DD/ 52 TD/TT: County Extension Agent:ARABELLA chest 1V Reviewed date:12/09/2024 03:18:43 PM Interpretation: Performing Lab: Notes/Report: Source Facility: [place] [address] [place] [address] XRay Report Signed Patient: JUAN GARCIA MR#: [id number] : 1990 Acct:[id number] Age/Sex: 34 / F ADM Date: 12/08/24 Loc: ER Attending Dr: Ordering Physician: Gideon Espinoza Date of Service: 12/08/24 Procedure(s): XR chest 1V Accession Number(s): [id number] cc: Gideon Espinoza; Britt Alas M.D. [place] [id number] Patient Name: JUAN GARCIA MRN: [facility]:[id number] date: 1990 Sex: F Assigned Patient Location: ER Current Patient Location: ER Accession/Order Number: [id number] Exam Date: 12/08/2024 21:42 Report Date: 12/08/2024 22:00 At the request of: GIDEON ESPINOZA MD Procedure: XR chest 1V PA CHEST: CLINICAL HISTORY: chest pain COMPARISON: CT chest 11/16/2024 The heart is normal in size. The lungs are clear. The pulmonary vasculature is normal. Mediastinum and hilar regions are unremarkable. No pleural effusions are seen. Visualized bones are intact. Catheter projects over the right chest terminating in distal SVC. XR/XR chest 1V IMPRESSION: Negative for acute pleural or parenchymal disease Impression dictated by: Tio Lundberg M.D. 12/08/2024 10:00 PM Dictation Location: [place] [address] Electronically authenticated by: [id number] Y Date: 12/08/2024 22:00 Dictated By: Tio Lundberg M.D. Signed By: 12/08/242201 DD/ 99 TD/TT: County Extension Agent:Troponin I High Sensitivity Reviewed date:12/09/2024 03:18:43 PM Interpretation: Performing Lab: Notes/Report: [facility] ,Troponin I High Sensitivity4.44.0-51.3 pg/mL CUT-OFF POINTS HAVE BEEN ESTABLISHED BASED ON THE FOURTH UNIVERSAL DEFINITION OF MYOCARDIAL INFARCTION. THE UPPER REFERENCE LIMIT (URL) OF TROPONIN, DEFINED THE 99TH PERCENTILE OF cTnI DISTRIBUTION IN A REFERENCE POPULATION, HAS BEEN CONFIRMED THE DECISION THRESHOLD FOR TN DIAGNOSIS. 99TH PERCENTILE = 51.4 PG/ML NOTE: HIGH-SENSITIVITY TROPONIN ASSAY IS NOT INTENDED TO BE USED IN ISOLATION BUT SHOULD BE INTERPRETED IN CONJUNCTION WITH OTHER DIAGNOSTIC AND CLINICAL INFORMATION. Performing Lab:see noteML - [facility] LBAMYLASE Reviewed date:12/17/2024 01:47:56 PM Interpretation: Performing Lab: Notes/Report: [facility] ,Uetrfqn5155-200 U/LPerforming Lab:see noteML - [facility] LBCBC AUTO DIFF Reviewed date:12/17/2024 01:47:56 PM Interpretation: Performing Lab: Notes/Report: [facility] ,White Blood Count9.74.0-11.0 10 3/uLRed Blood Count4.244.20-5.40 10 6/uL Jhnnyehmbz92.212.0-16.0 g/jFSzcmxjtnev05.936.0-48.0 %Mean Corpuscular Klmwie85.0 81.0-99.0 fLMean Corpuscular Tlffuwoohf44.826.7-34.0 pgMean Corpuscular HGB Conc 33.129.9-35.2 g/dLRed Cell Distribution Width15.111.0-15.0 %Platelet Wdzvt822 150-450 10 3/uLMean Platelet Izxpna45.79.5-13.5 fLNeutrophils Percent Auto65.8 43.0-75.0 %Lymphocytes Percent Auto27.320.5-60.0 %Monocytes Percent Auto5.41.7- 12.0 %Eosinophils Percent Auto0.70.9-7.0 %Basophils Percent Auto0.50.2-2.0 % Immature Granulocytes Pct Auto0.30.0-0.5 %Neutrophils Absolute Auto6.41.4-6.5 10 3/uLLymphocytes Absolute Auto2.71.2-3.8 10 3/uLMonocytes Absolute Auto0.50.3- 0.8 10 3/uLEosinophils Absolute Auto0.10.0-0.7 10 3/uLBasophils Absolute Auto0.1 0.0-0.1 10 3/uLImmature Granulocytes Abs Auto0.030.00-0.03 10 3/uLPerforming Lab:see noteML - [facility] LBLIPASE Reviewed date:12/17/2024 01:47:56 PM Interpretation: Performing Lab: Notes/Report: [facility] ,Gggbdo59.016.0-77.0 U/LPerforming Lab:see noteML - [facility] LB LIVER PROFILE Reviewed date:12/17/2024 01:47:56 PM Interpretation: Performing Lab: Notes/Report: [facility] ,Bilirubin Total0.30.2-1.0 mg/dLBilirubin Direct0.10.0-0.2 mg/dLAspartate Amino Zibedbxybta6710-69 U/LAlanine Llfpdrcrrxefvgzv8060-05 U/LAlkaline Icdsxgqjhec87 46-116 U/LTotal Protein7.06.4-8.2 g/dLAlbumin Level3.83.4-5.0 g/dLGlobulin3.2 Albumin Globulin Ratio1.2Performing Lab:see noteML - [facility] LB Troponin I High Sensitivity Reviewed date:12/17/2024 01:47:56 PM Interpretation: Performing Lab: Notes/Report: [facility] ,Troponin I High Sensitivity4.14.0-51.3 pg/mL CUT-OFF POINTS HAVE BEEN ESTABLISHED BASED ON THE FOURTH UNIVERSAL DEFINITION OF MYOCARDIAL INFARCTION. THE UPPER REFERENCE LIMIT (URL) OF TROPONIN, DEFINED THE 99TH PERCENTILE OF cTnI DISTRIBUTION IN A REFERENCE POPULATION, HAS BEEN CONFIRMED THE DECISION THRESHOLD FOR TN DIAGNOSIS. 99TH PERCENTILE = 51.4 PG/ML NOTE: HIGH-SENSITIVITY TROPONIN ASSAY IS NOT INTENDED TO BE USED IN ISOLATION BUT SHOULD BE INTERPRETED IN CONJUNCTION WITH OTHER DIAGNOSTIC AND CLINICAL INFORMATION. Performing Lab:see noteML - [facility] LBECG 12 lead Reviewed date:12/17/2024 01:47:56 PM Interpretation: Performing Lab: Notes/Report: Source Facility: [facility]-[address] [place] [address] [place] [address] Electrocardiograph Report Signed Patient: JUAN GARCIA MR#: [id number] : 1990 Acct:[id number] Age/Sex: 34 / F ADM Date: 12/16/24 Loc: ER Attending Dr: Ordering Physician: Leslie Terrazas M.D. 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 Measurements Intervals [place] Rate: 84 P: 73 TX: 130 QRS: 77 QRSD: 78 T: 70 QT: 408 QTc: 483 Interpretive Statements 1100 Sinus rhythm 1470 with occasional supraventricular premature complexes 8304 Long QTc interval 9150 abnormal ECG Compared to ECG 12/08/2024 20:53:42 QTc has lengthened Electronically Signed On 12-17-2024 9:41:36 EST by JAMES HODGES M.D. Dictated By: JAMES HODGES Signed By: 12/17/24 0941 DD/ 2245 TD/TT: County Extension Agent:Troponin I High Sensitivity Reviewed date:12/17/2024 01:47:56 PM Interpretation: Performing Lab: Notes/Report: [facility] ,Troponin I High Sensitivity5.64.0-51.3 pg/mL CUT-OFF POINTS HAVE BEEN ESTABLISHED BASED ON THE FOURTH UNIVERSAL DEFINITION OF MYOCARDIAL INFARCTION. THE UPPER REFERENCE LIMIT (URL) OF TROPONIN, DEFINED THE 99TH PERCENTILE OF cTnI DISTRIBUTION IN A REFERENCE POPULATION, HAS BEEN CONFIRMED THE DECISION THRESHOLD FOR TN DIAGNOSIS. 99TH PERCENTILE = 51.4 PG/ML NOTE: HIGH-SENSITIVITY TROPONIN ASSAY IS NOT INTENDED TO BE USED IN ISOLATION BUT SHOULD BE INTERPRETED IN CONJUNCTION WITH OTHER DIAGNOSTIC AND CLINICAL INFORMATION. Performing Lab:see noteML - [facility] LBXR chest 1V Reviewed date:12/17/2024 01:47:56 PM Interpretation: Performing Lab: Notes/Report: Source Facility: [facility]-[address] [place] [address] [place] [address] XRay Report Signed Patient: JUAN GARCIA MR#: [id number] : 1990 Acct:[id number] Age/Sex: 34 / F ADM Date: 12/16/24 Loc: ER Attending Dr: Ordering Physician: Leslie Terrazas M.D. Date of Service: 12/16/24 Procedure(s): XR chest 1V Accession Number(s): [id number] cc: Britt Alas M.D.; Leslie Terrazas M.D. [address] [address] Patient Name: JUAN GARCIA MRN: [facility]:[id number] date: 1990 Sex: F Assigned Patient Location: ED.MAIN Current Patient Location: ED.MAIN Accession/Order Number: [id number] Exam Date: 12/16/2024 22:50 Report Date: 12/17/2024 07:48 At the request of: LESLIE TERRAZAS MD Procedure: XR chest 1V PA CHEST: CLINICAL HISTORY: CP COMPARISON: 12/08/2024 Catheter noted with tip tip terminates level of the right cavoatrial junction. Otherwise unremarkable cardiomediastinal. Lungs clear. No effusion or pneumothorax. XR/XR chest 1V IMPRESSION: Negative acute pleural-parenchymal disease. Impression dictated by: Tio Lundberg M.D. 12/17/2024 7:48 AM Dictation Location: [place] [address] Electronically authenticated by: [id number] Y Date: 12/17/2024 07:48 Dictated By: Tio Lundberg M.D. Signed By: 12/17/24 0750 DD/ 0748 TD/TT: County Extension Agent: Reason For Referral No Information Medications Medication SIG (Take, Route, Frequency, Duration) Notes Start Date End Date Status Promethazine HCl 25 MG TAKE 1 TABLET BY MOUTH 4 TIMES A DAY NEEDED; Duration: 7 ActiveMetoclopramide HCl 10 MG1 tablet before meals Orally achs; Duration: 30 days5ActiveAspirin 81 MG1 tablet Orally Once a day5Active Ondansetron 4 MG 1-2 tablet on the tongue and allow to dissolve Orally q4h; Duration: 30 days As needed 0150XfqxtoFbmgdvqrkz-MUFM-Urmullfu 50-325-40 MGTAKE 1 TABLET BY MOUTH EVERY 4 HOURS NEEDED FOR HEADACHE; Duration: 4PRN5ActiveOneTouch Ultra 2 w/DeviceUSE TO MONITOR BLOOD GLUCOSE LEVELS DAILY; Duration: 30Active OxygenUse 2Liters of continuous oxygen at HS per oxygen concentrator DX Nocturnal hypoxia d/t respiratorydepression; Duration: 365 days5Active Colchicine 0.6 MG1/2 tablet Oral every other day; Duration: 30 daysActivePlavix 75 MG1 tablet Orally Once a day11/14/2024tiveCompazine 10 MG1 tablet as needed Orally Three times a day12/22/2023ctiveDoxycycline Monohydrate 100 MG1 tablet Orally bid; Duration: 10 days12/09/2024tivePrucalopride Succinate 2 MG1 tablet Orally Once a day; Duration: 30 daysActivefentaNYL 25 MCG/HR 1 patch to skin Transdermal Q 3 days K56.600 5ActivefentaNYL 12 MCG/HR 1 patch to skin Transdermal Q3d; Duration: 30 days with a 25mcg patch 12/28/2024tiveRanolazine ER 500 MGTAKE 1 TABLET BY MOUTH TWICE DAILY Oral; Duration: 30 DaysActiveMetoprolol Succinate ER 25 MGOral; Duration: 30 Days ActiveNitroglycerin 0.4 MG1 sl Sublingual Q 5 min as needed for chest pain 5ActiveFerrous Sulfate 325 (65 Fe) MG1 tablet Orally weekly; Duration: 30 days07/19/2023ctiveFreeStyle Hunter 3 Plus Sensor -USE TO MONITOR GLUCOSE CHANGE ONCE EVERY 15 DAYS; Duration: 30ActiveTest Strips - Test sugar Once daily; Duration: 90 days Dx: E11.9 5ActiveHydrocortisone 10 MG1 tablet with food or milk Orally once a day PRN- InjectionActiveTopamax 100 MG1 tablet Orally BID; Duration: 30 days 06/23/2023ctivehydrOXYzine HCl 50 MG1 tablet Orally Once a day at bedtime; Duration: 30 daysActiveLancets 30G -Use 1 lancet E11.9 once daily; Duration: 90 03/22/2024tivetraZODone HCl 100 MG1 tablet Orally bdljmaa3011/18/2023ctive Levothyroxine Sodium 75 MCGTAKE 1 TABLET BY MOUTH EVERY MORNING ON AN EMPTY STOMACH FOR 30 DAYS; Duration: ActiveLexapro 20 MG1 tablet Orally Once a day 06/23/2023ctiveVerapamil HCl 40 MG1 tablet Oral every 8 hours; Duration: 30 daysActiveLiothyronine Sodium 5 MCG1 tablet on an empty stomach Orally Once a day; Duration: 30 days06/23/2023ctiveMethocarbamol 500 MGTAKE 1.5 TABLETS BY MOUTH EVERY 6 HRS FOR 30 DAYS; Duration: 30ActivetraMADol HCl 50 MG 1 tablet as needed Orally qid; Duration: 30 days As needed PRN103/03/2024tiveRemeron 30 MG1.5 tablet at bedtime Orally Once a day 06/23/2023ctiveHYDROcodone-Acetaminophen 5-325 MG 1 - 2 tablet as needed - max 6/day Orally every 6 hrs; Duration: 30 days K56.600 K56.6655701/01/2025tiveRosuvastatin Calcium 40 MGTAKE 1 TABLET BY MOUTH AT BEDTIME Oral; Duration: 30 DaysActiveFreeStyle Hunter 3 ReaderUse to monitor glucose levels multiple times daily DX Diabetes with hypoglycemic episodes; Duration: 365 days10/14/2023ctiveSucralfate 1 GM1 tablet on an empty stomach Orally TID10/03/2024tive Social History Tobacco Use: Social History Observation Description Date Details (start date - stop date) Never Smoker NA - NA Tobacco Control (Standard) Question Answer Notes Tobacco use: Nonsmoker AUDIT-C (Standard) Question Answer Notes Did you have a drink containing alcohol in the p ast year? 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)ActiveconfirmedProblemAsthma (516439733)Asthma (J45.909)Active confirmedProblemGastroesophageal reflux disease (369246822)GERD (gastroesophageal reflux disease) (K21.9)ActiveconfirmedProblemHypothyroidism (35179263)Hypothyroidism (E03.9)ActiveconfirmedProblemCoronary artery disease (41456466)CAD (coronary artery disease) (I25.10)ActiveconfirmedProblemAnxiety (48774927)Anxiety (F41.9)ActiveconfirmedProblemMigraine (85281351)Migraine (G43.909)ActiveconfirmedProblemIrritable bowel syndrome (30689188)IBS (irritable bowel syndrome) (K58.9)ActiveconfirmedProblemGeneralized anxiety disorder (78854371)EDWAR (generalized anxiety disorder) (F41.1)ActiveconfirmedProblemLumbar radiculopathy (167114309)Lumbar radiculopathy (M54.16)ActiveconfirmedProblem Allergic conjunctivitis (781832161)Allergic conjunctivitis (H10.10)Active confirmedProblemAcquired hypothyroidism (884166517)Acquired hypothyroidism (E03.9)ActiveconfirmedProblemHypoglycemia (741902067)Hypoglycemia (E16.2)Active confirmedProblemAnxiety disorder (957220689)Anxiety disorder (F41.9)Active confirmedProblemIdiopathic sleep related non-obstructive alveolar hypoventilation (820340062)Nocturnal hypoxemia (G47.34)ActiveconfirmedProblem Neutropenia (766362405)Neutropenia (D70.9)ActiveconfirmedProblemSepsis (07599357)Sepsis (A41.9)ActiveconfirmedProblemLeukocytosis (732837808)Elevated white blood cell count (D72.829)ActiveconfirmedProblemEdema (013570830)Facial edema (R60.0)ActiveconfirmedProblemGastrostomy present (388681109)PEG (percutaneous endoscopic gastrostomy) status (Z93.1)ActiveconfirmedProblem Respiratory depression (45172603)Respiratory depression (R06.89)Activeconfirmed ProblemSevere protein calorie malnutrition (332722811)Severe protein-calorie malnutrition (E43)ActiveconfirmedProblemDisorder of endocrine system (119977833) 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.9)ActiveconfirmedProblemMalnutrition of moderate degree ([place]axter: 60% to less than 75% of standard weight) (08575942) Moderate malnutrition (E44.0)ActiveconfirmedProblemGastrostomy present (083371274)Feeding by G-tube (Z93.1)ActiveconfirmedProblemGastrostomy present (408521086)Gastrostomy in place (Z93.1)ActiveconfirmedProblemAcute non-ST segment elevation myocardial infarction (423858879)NSTEMI (non-ST elevation myocardial infarction) (I21.4)ActiveconfirmedProblemJejunostomy tube, device (physical object) (932891394)Jejunostomy tube present (Z93.4)Activeconfirmed ProblemIntestinal obstruction (53483122)Partial intestinal obstruction, unspecified as to cause (K56.600)Activeconfirmed Vital Signs Oximetry 98 % 12/12/2024 Blood pressure sfaoxwgpp32 mm Hg01/01/20251388Zeyoan09 in01/01/2025lood pressure qxlraruy160 mm Hg01/01/20254934Ptedwf397 lbs103/03/2024BMI28.89 kg/m201/01/2025 Encounters Encounter Location Date Provider Diagnosis [address] [address] 01/10/2024 Brandyn Hoy GERD (gastroesophage al reflux disease) K21.9 ; Hypothyroidism E03.9 ; Anxiety F41.9 and IBS (irritable bowel syndrome) K58.[address] [address] 03/21/2024 Brandyn Hoy GERD (gastroesophage al reflux disease) K21.9 and Hypoglycemia E16.[address] [address] 12/12/2024 Brandyn Hoy Nocturnal hypoxemia G47.34 ; Respiratory depression R06.89 and UTI (urinary tract infection) N39.[address] [address] 01/01/2025 Brandyn Hoy GERD (gastroesophage al reflux disease) K21.9 ; IBS (irritable bowel syndrome) K58.9 ; Severe protein-calorie malnutrition E43 and PEG (percutaneous endoscopic gastrostomy) status Z93.[address] [address] 08/22/2024 Brandyn Hoy Gram negative sepsis A41.50 [facility] [address] [place] [address] 09/11/2024 Brandyn Hoy Sepsis A41.9 [facility] [address] [place] [address] 10/03/2024 Brandyn Hoy GERD (gastroesophage al reflux disease) K21.9 ; IBS (irritable bowel syndrome) K58.9 and Severe protein-calorie malnutrition E43 [facility] [address] [place] [address] 11/14/2024 Brandyn Hoy CAD (coronary artery disease) I25.10 and Moderate malnutrition E44.0 [facility] [address] [place] [address] 11/23/2024 Brandyn Hoy Hypoglycemia E16.2 a nd IBS (irritable bowel syndrome) K58.9 [facility] [address] [place] [address] 04/10/2024 Brandyn Hoy Hypoglycemia E16.[address] [place] [address] 04/19/2024 Brandyn Hoy Hypoglycemia E16.[address] [address] 08/07/2024 Brandyn Hoy GERD (gastroesophage al reflux disease) K21.9 ; Severe protein-calorie malnutrition E43 ; PEG (percutaneous endoscopic gastrostomy) status Z93.1 and Acquired hypothyroidism E03.9 [facility] [address] [place] [address] 12/25/2024 Brnadyn Hoy BVH [facility] [place] [place] [address] 12/25/2024Doug [facility] [place] [address]/12/2025Doug HoyBV[facility] [place] [place] [address]/13/2025Doug HoyIBS (irritable bowel syndrome) K58.9[facility] [place] [address]/ [facility] [place] [address]/[facility] [facility] [place] [address]/[facility] [place] [address]/[facility] [facility] [place] [address]/[facility] [facility] [place] [address]/ [facility] [facility] [place] [address]/03/2024Doug [facility] [facility] [place] [address]/[facility] [facility] [place] [address]/[facility] [facility] [place] [address]/Doug HoyGERD (gastroesophageal reflux disease) K21.9BP[facility] [facility] [place] [address]/Doug HoyIBS (irritable bowel syndrome) K58.9BP[facility] [facility] [place] [address]/[facility] [place] [address]/[facility] [facility] [place] [address]/03/2024[facility] [address] [facility] [place] [address]/09/2024[facility] [facility] [place] [address]/10/2024Doug [facility] [facility] [place] [address] 11/23/2024[facility] [facility] [place] [address]/11/2024[facility] [facility] [place] [facility] [place] [address]/Doug HoyGERD (gastroesophageal reflux disease) K21.9BPark[facility] Center[address] [facility] [place] [address] 10/18/2024[facility] [facility] [place] [address]/10/2024Doug HoySepsis A41.9B[facility] [facility] [place] [facility] [place] [address]/12/2024[facility] [facility] [place] [address]/01/2025Doug HoyGERD (gastroesophageal reflux disease) K21.9BP[facility] Center[address] [facility] [place] [address]/01/2025[facility] [facility] [place] [address]/[facility] [facility] [address] [place] [facility] [place] [address]/ [facility] [facility] [place] [address]/[facility] [facility] [place] [address]/29/2025Doug HoyGERD (gastroesophageal reflux disease) K21.9BVH [facility] [facility] [place] [address] 10/17/2024Doug HoyIBS (irritable bowel syndrome) K58.9BPark[facility] Center[address] [facility] [place] [address]/03/2024[facility] [facility] [place] [address]/04/2024 [facility] [facility] [place] [address]/04/2024Doug HoyBVal[facility] Hospital[address] [facility] [place] [address]/05/2024Doug HoyPartial intestinal obstruction, unspecified as to cause K56.600[facility] [facility] [place] [address]/Doug HoyB[facility] Hospital[address] [place] [address]/Doug HoyGERD (gastroesophageal reflux disease) K21.9BParkview [facility] Center[address] [facility] [place] [address]/Doug HoyIBS (irritable bowel syndrome) K58.9 [facility] [facility] [place] [address] 10/04/2024[facility] [place] [facility] [place] [address]/Doug HoyGERD (gastroesophageal reflux disease) K21.9 [facility] [facility] [place] [address] 09/04/2024[facility] [facility] [place] [address]/[facility] [facility] [place] [address]/[facility] [facility] [place] [address]/Doug HoyB[facility] [facility] [place] [address]/02/2024Doug HoyGERD (gastroesophageal reflux disease) K21.9BVH [facility] [facility] [place] [address]/02/2024Doug HoyPartial intestinal obstruction, unspecified as to cause K56.600BVH [facility] [facility] [place] [address]/02/2024Doug [facility] [place] [place] [facility] [place] [address]/02/2024[facility] [facility] [place] [address]/04/2024Doug HoyGERD (gastroesophageal reflux disease) K21.9BPark[facility] Center[address] [facility] [place] [address]/08/2024Doug [facility] [place] [place] [facility] [place] [address]/Doug HoyGERD (gastroesophageal reflux disease) K21.9BPark[facility] Center[address] [facility] [place] [address]/07/2024Doug HoyPartial intestinal obstruction, unspecified as to cause K56.600 and GERD (gastroesophageal reflux disease) K21.9BPark[facility] Center[address] [facility] [place] [address]/07/2024Doug HoyBVal[facility] View Hospital[address] [facility] [place] [address]/Doug HoyB[facility] Hospital[address] [facility] [place] [address]/Doug HoyGERD (gastroesophageal reflux disease) K21.9BParkview Medical Center[address] [place] [address]/Doug HoyElevated white blood cell count D72.829[facility] [facility] [place] [address]/ Brandyn HoyBVal[facility] View Hospital[address] [place] [address] 06/05/2024Doug HoyBVal[facility] View Hospital[address] [place] [address]/Doug HoyGERD (gastroesophageal reflux disease) K21.9BVal[facility] View Hospital[address] [facility] [place] [address]/10/2024 Brandyn HoyPartial intestinal obstruction, unspecified as to cause K56.600 and GERD (gastroesophageal reflux disease) K21.9BVal[facility] Hospital[address] [facility] [place] [address]/[facility] [facility] [place] [address]/Doug HoyB[facility] [facility] [place] [address]/ Brandyn HoyGERD (gastroesophageal reflux disease) K21.9BVal[facility] Hospital[address] [facility] [place] [address]/Doug HoyGERD (gastroesophageal reflux disease) K21.9BVal[facility] Hospital[address] [facility] [place] [address]/[facility] [address] [facility] [place] [address]/03/2024Doug HoyGERD (gastroesophageal reflux disease) K21.9BVal[facility] Hospital[address] [facility] [place] [address]/08/2024Doug Ho[facility] [place] [place] [address] [facility] [place] [address]/12/2024Doug HoyPartial intestinal obstruction, unspecified as to cause K56.600BV[facility] [facility] [place] [address]/Doug HoyGERD (gastroesophageal reflux disease) K21.9BPark[facility] Center[address] [facility] [place] [address]/05/2024Doug HoyHypoglycemia E16.2BParkview Medical Center[address] [facility] [place] [address]/08/2024Doug Hoy GERD (gastroesophageal reflux disease) K21.9BParkview Medical Center[address] [facility] [place] [address]/08/2024Doug HoyBVal[facility] View Hospital[address] [facility] [place] [address]/Doug HoyPartial intestinal obstruction, unspecified as to cause K56.600[facility] [facility] [place] [address]/[facility] [facility] [place] [address]/ [facility] [facility] [place] [address] 04/04/2024Doug HoyPartial intestinal obstruction, unspecified as to cause K56.600[facility] [facility] [place] [address]/Doug HoyPartial intestinal obstruction, unspecified as to cause K56.600BVKind[facility] [facility] [place] [address]/Doug HoyGERD (gastroesophageal reflux disease) K21.9BParkview Medical Center[address] [facility] [place] [address]/ [facility] [facility] [place] [address]/[facility] [facility] [place] [address]/05/2024[facility] [facility] [place] [address]/06/2024[facility] [facility] [place] [address]/08/2024Doug HoyGERD (gastroesophageal reflux disease) K21.9BVal[facility] View Hospital[address] [facility] [place] [address]/11/2024Doug HoyGERD (gastroesophageal reflux disease) K21.9BParkview Medical Center[address] [facility] [place] [address]/01/2025[facility] [facility] [place] [address]/Doug HoyPartial intestinal obstruction, unspecified as to cause K56.600[facility] [facility] [place] [address]/Doug HoyPartial intestinal obstruction, unspecified as to cause K56.600[facility] [address] [place] [address]/[facility] [address] [facility] [place] [address]/Doug HoyPartial intestinal obstruction, unspecified as to cause K56.600BVKind[facility] [place] [address]/[facility] [facility] [place] [address]/[facility] [place] [address]/ Brandyn HoyGERD (gastroesophageal reflux disease) K21.9BParkview Medical Center[address] [place] [address]/05/2024[facility] [place] [address]/ Brandyn HoyGERD (gastroesophageal reflux disease) K21.9BParkview Medical Center[address] [place] [address]/oug [facility] [place] [address]/ Brandyn [facility] [place] [address] 02/14/2024oug [facility] [place] [address]/07/2024Doug HoyGERD (gastroesophageal reflux disease) K21.9BPark[facility] Medical Center[address] [facility] [place] [address]/ Brandyn HoyGERD (gastroesophageal reflux disease) K21.9BValley View Hospital[address] [facility] [place] [address]/oug HoyGERD (gastroesophageal reflux disease) K21.9BParkview Medical Center[address] [place] [address]/[facility] [place] [address]/[facility] [place] [address]/ Brandyn [facility] [place] [address] 4[facility] [place] [address]/oug HoyPartial intestinal obstruction, unspecified as to cause K56.600BVKindred [facility] [place] [address]/oug HoyGERD (gastroesophageal reflux disease) K21.9BPark[facility] Center[address] [facility] [place] [address]/ Brandyn HoyBParkview Medical Center[address] [facility] [place] [address]/oug HoyBVKindred Hospital [facility] [place] [address]/oug HoyAnxiety F41.9BParkview Medical Center[address] [facility] [place] [address]/oug [facility] [place] [facility] [place] [address]68/12/2023 Brandyn Alas Assessments Encounter Date Diagnosis (ICD Code) Assessment Notes Treatment Notes Treatment Clinical Notes Section Notes 01/10/2024 GERD (gastroesophageal reflux di sease) (ICD-10 - K21.9) 01/10/2024Hypothyroidism (ICD-10 - E03.9)03/21/2024GERD (gastroesophageal reflux disease) (ICD-10 - K21.9)03/21/2024Hypoglycemia (ICD-10 - E16.2)04/10/2024 Hypoglycemia (ICD-10 - E16.2)04/19/2024Hypoglycemia (ICD-10 - E16.2)08/07/2024 GERD (gastroesophageal reflux disease) (ICD-10 - K21.9)08/07/2024Severe protein- calorie malnutrition (ICD-10 - E43)08/22/2024Gram negative sepsis (ICD-10 - A41.50)09/11/2024Sepsis (ICD-10 - A41.9)10/03/2024GERD (gastroesophageal reflux disease) (ICD-10 - K21.9)08/19/2025IBS (irritable bowel syndrome) (ICD-10 - K58.9)5CAD (coronary artery disease) (ICD-10 - I25.10)11/14/2024 Moderate malnutrition (ICD-10 - E44.0)skipping feding tube11/23/2024IBS (irritable bowel syndrome) (ICD-10 - K58.9)11/23/2024Hypoglycemia (ICD-10 - E16.2)12/12/2024Nocturnal hypoxemia (ICD-10 - G47.34)Faile dnocturnal oximetry sats in low 80's 83-84% - needs 2 L to prevent noctuanl hyp=oxemai due toresp klfoujdbbfy20/28/2025Respiratory depression (ICD-10 - R06.89)01/01/2025GERD (gastroesophageal reflux disease) (ICD-10 - K21.9)01/01/2025IBS (irritable bowel syndrome) (ICD-10 - K58.9)01/10/2024GERD (gastroesophageal reflux disease) (ICD-10 - K21.9)4Anxiety (ICD-10 - F41.9)01/26/2024GERD (gastroesophageal reflux disease) (ICD-10 - K21.9)02/04/2024artial intestinal obstruction, unspecified as to cause (ICD-10 - K56.600)02/07/2024GERD (gastroesophageal reflux disease) (ICD-10 - K21.9)02/21/2024GERD (gastroesophageal reflux disease) (ICD-10 - K21.9)03/03/2024GERD (gastroesophageal [...] obstruction, unspecified as to cause (ICD-10 - K56.600)05/04/2024D (gastroesophageal reflux disease) (ICD-10 - K21.9)05/17/2024GERD (gastroesophageal reflux disease) (ICD-10 - K21.9)05/26/2024Partial intestinal obstruction, unspecified as to cause (ICD-10 - K56.600)05/30/2024 (gastroesophageal reflux disease) (ICD-10 - K21.9) 06/12/2024GERD (gastroesophageal reflux disease) (ICD-10 - K21.9)07/21/2024 Partial intestinal obstruction, unspecified as to cause (ICD-10 - K56.600) 08/04/2024D (gastroesophageal reflux disease) (ICD-10 - K21.9)08/09/2024 Elevated white blood cell count (ICD-10 - D72.829)08/15/2024Partial [...] K21.9) 12/05/2024IBS (irritable bowel syndrome) (ICD-10 - K58.9)12/28/2024IBS (irritable bowel syndrome) (ICD-10 - K58.9)06/23/2024Partial intestinal obstruction, unspecified as to cause (ICD-10 - K56.600)07/07/2024GERD (gastroesophageal reflux disease) (ICD-10 - K21.9)07/21/2024GERD (gastroesophageal reflux disease) (ICD-10 - K21.9)08/07/2024PEG (percutaneous endoscopic gastrostomy) status (ICD-10 - Z93.1)01/01/2025Severe protein-calorie malnutrition (ICD-10 - E43)06/23/2024GERD (gastroesophageal reflux disease) (ICD-10 - K21.9)12/12/2024UTI (urinary tract infection) (ICD-10 - N39.0)waiting on cx for pseudoimona and loigbnmzxogjgtib47/19/2025Severe protein-calorie malnutrition (ICD-10 - E43)4Anxiety (ICD-10 - F41.9)01/10/2024IBS (irritable bowel syndrome) (ICD-10 - K58.9)5Acquired hypothyroidism (ICD-10 - E03.9)01/01/2025PEG (percutaneous endoscopic gastrostomy) status (ICD- 10 - Z93.1) Plan Of Treatment Pending Test Test Name Order Date UA (URINALYSIS, COMPLETE) 07/30/2023 ESR 08/03/2023 Urine Culture 07/30/2023 RHEUMATOID PANEL 08/03/2023 XR Abdomen KUB 1 View 11/04/2023 TESTOSTERONE, FREE AND TOTAL 11/26/2023 FSH - PROLACTIN 11/18/2023 AMYLASE 01/10/2024 AMYLASE 01/09/2025 CBC AUTO DIFF 01/09/2025 CBC AUTO DIFF 01/10/2024 CRP 08/03/2023 ESTRADIOL 11/18/2023 LIPASE 01/10/2024 LIPASE 01/09/2025 LIVER PROFILE 01/09/2025 PROF 14(COMP METB) 01/10/2024 PROF CHEM 8 (BAS METB) 01/09/2025 PROGESTERONE 11/18/2023 TESTOSTERONE, TOTAL 11/18/2023 TESTOSTERONE, TOTAL [...] End Date [employer] [place] [employer] [address] [address] [place] [address] [id number] Brent Garcia - patient is the insured Medications Administered Medication Instructions Date of Administration Dosage Notes Ceftriaxone 1 gram g1 gramDexamethasone, 4mg/mL2 mg12 Medical (General) History Medical History History ICD Code IBS (irritable bowel syndrome) K58.9 Anxiety F41.9 Asthma J45.909 GERD (gastroesophageal reflux disease) K 21.9 Migraine G43.909 Hypothyroidism E03.9 Surgical History Surgery Date(Month/Year) untwisted bowel, repair of h ole in intestine and removal of Adhesions 12/09 Coronary Angiography, US LAD, iFR- [facility] Cardio 12/06/2024 Hematoma Surgery 2024 Port Replacement 2024 J Tube removal 2024 MALS Surgery 02/2023 CHOLECYSTECTOMY APPENDECTOMYCESAREAN JXILOJVDs5Pokdjpo bupctv40/2022Hospitalization History Reason Date(Month/Year) [facility]- bowel obstruction 1025 Chest Pain 11/2024 see above- [facility], [facility]- malnutrition, DM06/2023[facility] Bact[facility] 09/2024Hypoglycemia/ Bowel Rtfticibtyr48/24[facility] [place] Wdfpfcokadbo99/22Qbtjog9/2025
--- OUTSIDE RECORDS SUMMARY | 2025-01-09 12:17 | XMS_ITS | Clinical Summary ---
Author Organization [facility] Address [address] [place] [address] Phone Care Team Providers Care Electroless Plater Name Role Phone Generic Provider, No Assigned [...] mouth once daily at bedtime. 30 MG QTVSXBYDH78/26/2023 Active polyethylene glycol (Glycolax, Miralax) 17 gram/dose [...] pain06/30/2023cute renal failure superimposed on chronic kidney yobmukn4206/29/20230367Rqwdyzrbcaz76/14/2024Heart nyggkwj2506/29/2023bdominal pain03/16/2023Nausea and aohlqvvo83/19/2024OSA (obstructive sleep apnea)03/05/20231453Efuayn03/19/6173Fkctxcc04/19/2024 Vaezmcrceacnej90/19/9239Bjqpohtvim71/19/2024Median arcuate ligament syndrome 02/18/2023 Encounters DateTypeDepartmentCare BarjTvxggxdgphm81/26/2025 11:00 AM EDT - 10/10/2024 11:59 PM EDTHospital Encounter [facility] [address] [place] [address] Discharge Disposition: Home10/09/2024 10:15 AM EDTTelemedicine [facility] [address] [place] [address] Sherry Holley MD Median arcuate ligament syndrome (Primary Dx) Discharge Disposition: Homefrom Last 3 Months Family History Medical HistoryRelationNameCommentsAsthmaBrotherTom [...] relatives?Twice a week06/30/2023How often do you attend roman catholic or baptist services?More than 4 times per year06/30/2023o you belong to any clubs or organizations such as roman catholic groups, unions, [...] heating?Not hard at all06/30/2023HQ-2AnswerDate RecordedPatient Health Questionnaire-2 [facility]ne924[facility] [place] [facility] - Occupational Stress QuestionnaireAnswerDate [...] steady place to sleep or slept in middleburghelter (including now)?No 06/30/2023UDIT-CAnswerDate RecordedQ1: How often do you have a drink containing alcohol?Never10/09/2024Q2: How many drinks containing alcohol do you have on a typical day when you are drinking?Patient does not drink10/09/2024Q3: How often do you have six or more drinks on one occasion?Never10/09/2024Comments UnknownSex and Gender InformationValueDate RecordedSex Assigned at BirthFemale 02/23/2023 4:19 AM ESTLegal ActVoyvlp90/26/2022 6:26 PM ESTGender IdentityFemale 03/02/2023 2:54 PM ESTSexual JnckcemjaumYngecaza42/16/2024 2:54 PM EST Last Filed Vital Signs Vital SignReadingTime TakenCommentsBlood Etnbhtwv26/5705 7:00 AM EDT Rybqu06671/18/2024 7:00 AM AKNQpxpvoskcws87 ??C (98.6 ??F)07/03/2023 7:00 AM EDT Respiratory Vsui2546 7:00 AM EDTOxygen Wfxtnkellg916%07/03/2023 7:00 AM EDTInhaled Oxygen Concentration--Ktkgqx31.2 kg (168 lb)06/29/2023 6:16 PM EDT Tcosfl111.6 cm (5' 6 )06/29/2023 6:16 PM EDTBody Mass Index27.12006/29/2023 6:16 PM EDT Plan of Treatment Health MaintenanceDue DateLast TkjuKxveqzfzTzcibntxstyyng21/17/1990HIV Screening 1989Lipid Panel1989Yearly Adult Ewhbljit11/17/1990MMR Vaccines (1 of 1 - Standard series)1990Hepatitis C Oowpzygmg26/17/2008Hepatitis A Vaccines (1 of 2 - Risk 2-dose series)2008Hepatitis B Vaccines (1 of 3 - 19+ 3-dose series)2008Pneumococcal Vaccine: Pediatrics and At-Risk Adult Patients (1 of 2 - PCV)2008Zoster Vaccines (1 of 2)2008HPV/Cotest 2010HPV Vaccines (1 - Risk 3-dose Standard series)2016COVID-19 Vaccine (2 - Woo risk series)105/1Cervical Cancer Screening 4Pap Smear04///07/2020TSH Level10/26//3Creatinine Level/, 07/01/2023, 06/30/2023, Additional history exists Potassium Level/, 07/01/2023, 06/30/2023, Additional history existsInfluenza Vaccine (#1)509/, 11/16/2021, 01/01/2021, Additional history existsDiabetes Acrdkskgl89/06/589012/07/2024, 08/19/2024, 08/18/2024, Additional history existsDTaP/Tdap/Td Vaccines (2 [...] LotMembrane, Seprafilm, 5 X 6 In - [id number] Implanted:Qty: 1 on 03/05/2023 [facility]: [id number] / / [id number] Procedures Procedure NamePriorityDate/TimeAssociated DiagnosisCommentsCT TRANSFER OF OUTSIDE XYFVNTlrrstz71/26/2025 11:03 AM EDT POCT LNYXQZOQpshkoe04/18/2024 7:17 AM EDT RENAL FUNCTION ZCMIPGspiqul84/17/2024 6:47 AM EDT from Last 3 Months or Most Recently Relevant to Health Maintenance Results * CT transfer of outside films (10/10/2024 11:03 AM EDT)Specimen (Source) Anatomical Location / LateralityCollection Method / VolumeCollection Time Received Time Narrative IMAGING - 10/10/2024 11:04 AM EDT Outside images for comparison or treatment purposes, not interpreted by Radiologists. Authorizing ProviderResult TypeResult StatusWoosuleonel Holley MDIMJarrod CT PROCEDURES Final ResultPerforming OrganizationAddressCity/State/ZIP CodePhone Number IMAGING * (ABNORMAL) POCT GLUCOSE (07/03/2023 7:17 AM EDT)ComponentValueRef RangeTest MethodAnalysis TimePerformed AtPathologist SignaturePOCT Bgnlddq245(H)74 - 99 mg/dL07/03/2023 7:24 AM [facility] LABSpecimen (Source) Anatomical Location / LateralityCollection Method / VolumeCollection Time Received TimeBloodCapillary blood specimen / Hqsahzf3607/03/2023 7:17 AM EDT 07/03/2023 7:24 AM EDT Narrative Authorizing ProviderResult TypeResult StatusCyntsandee ROBLERO POINT OF CARE TEST DOCKED DEVICE UNSOLICITED RESULTSFinal ResultPerforming OrganizationAddress City/State/ZIP CodePhone Number [facility] [address] [place], [place] [id number] * (ABNORMAL) Renal Function Panel (07/02/2023 6:47 AM EDT)ComponentValueRef RangeTest MethodAnalysis TimePerformed AtPathologist VettilbwtUfqgdog892(H)65 - 99 mg/dL07/02/2023 7:53 AM [facility] EFZTqigaa545863 - 145 mmol/L07/02/2023 7:53 AM [facility] LABPotassium3.93.4 - 5.1 mmol/L07/02/2023 7:53 AM [facility] AIYHqmkvnuu51278 - 107 mmol/L07/02/2023 7:53 AM [facility] JMWKjfprynimwn74(L)24 - 31 mmol/L07/02/2023 7:53 AM [facility] LABUrea Uygqxgzn882 - 25 mg/dL07/02/2023 7:53 AM [facility] LABCreatinine0.700.40 - 1.60 mg/dL07/02/2023 7:53 AM [facility] LABeGFR>90>60 mL/min/1.73m*2 07/02/2023 7:53 AM [facility] LABComment: Calculations of estimated GFR are performed using the 2020 CKD-EPI Study Refit equation without therace variable for the IDMS-Traceable creatinine methods. https://jasn.asnjournals.org/content/early//ASN.0137475014 Calcium8.68.5 - 10.4 mg/dL07/02/2023 7:53 AM [facility] Phosphorus4.02.5 - 4.5 mg/dL07/02/2023 7:53 AM [facility] Albumin4.03.5 - 5.0 g/dL07/02/2023 7:53 AM [facility] LABAnion Gap 11<=19 mmol/L07/02/2023 7:53 AM [facility] LABSpecimen (Source) Anatomical Location / LateralityCollection Method / VolumeCollection Time Received TimeBloodVenous blood specimen / Fmpklvv7807/02/2023 6:47 AM EDT 07/02/2023 6:58 AM EDT Narrative Authorizing ProviderResult TypeResult StatusOludamirobert ROBLERO BLOOD ORDERABLESFinal ResultPerforming OrganizationAddressCity/State/ZIP CodePhone Number [facility] [address] [place] [address] from Last 3 Months or Most Recently Relevant to Health Maintenance Insurance Advance Directives For more information, please contact: [phone] (Available ) * Full Code (Latest Code Status on File) Date ActivatedDate InactivatedComments03/05/2023 2:37 PMQuestionAnswerComments Plan of Care:* Code Status Discussion Completed Decision Maker:* Patient Care Teams Team MemberRelationshipSpecialtyStart DateEnd Date Generic Provider, No Assigned [place], [place] [address] PCP - GeneralGeneral Practice06/29/23
--- OUTSIDE RECORDS SUMMARY | 2025-01-09 12:17 | XMS_ITS | Clinical Summary ---
Author Organization [facility] Address [address] [place] [address] Care Team Providers Care Group Burner Machine Name Role Phone Anna Mendez SWITCH OPERATOR Unavailable Thomas Alas MD Primary Care Provider [phone] Allergies Active AllergyReactionsCriticalityNoted LzcgCezelrirWojrbkw26/21/2023Morphine And CodeineNausea And Vomiting,Other,BlxvbsxPpiqum29/23/2014 Other Reaction(s): GI Upset, Nausea/vomiting, Not available, Other (See Comments), unknown NsaidsGI uxysbvcozkhVsd50/15/2022 S/p RYGB Other Reaction(s): Nausea/vomiting Other Reaction(s): Other (See Comments), Unknown Gastric bypass S/p RYGB S/p RYGB Oxycodone-LsyrwyrwpuojlMnmhjvhfgcpJvzp10/30/2904Tfxxuqll70/14/2024Wound Dressing UyfttgrmYbpcnXdlswi71/23/2020 Sensitive to certain adhesive tapes. Redness and [...] the morning and 1 puff before bedtime.08/20/2021ctive Neusoft GroupTouch Ultra test strip USE TO TEST BLOOD SUGAR TWICE DAILY08/17/2021ctive hydrOXYzine HCl (Atarax) 25 MG tablet TAKE 1 TABLET BY MOUTH TWICE A DAY NEEDED FOR ANXIETY/KPCSIQUS18/24/2023 Active Lancets (OneTouch Delica Plus Mnxtse73C) misc USE TO TEST BLOOD SUGAR TWICE DAILY08/17/2021ctive liothyronine (Cytomel) 5 MCG tablet liothyronine 5 mcg bojvhn2805/21/2022ctive mirtazapine (Remeron) 15 MG tablet Take 15 [...] & Plan: Assessment: monitored per PCP Patellofemoral irtzpwjxc69/20/2023Other specified noninflammatory disorders of sbytik1408/04/2022Mixed incontinence urge and vrjfva6408/04/2022Mixed anxiety and depressive qoodngvl44/20/2023Internal derangement of right tcaeqmzk55/20/2023 GERD (gastroesophageal reflux disease)08/04/2022 Overview (08/04/2022): Last Assessment & Plan: Assessment: takes meds,stable Gall stone08/04/20229055Zzvgzatl99/20/6594Hwsuakfej56/20/2023hronic constipation 08/04/20225717Kfbxvv91/20/2023 Overview (08/04/2022): Takes Pro FE daily. Last Assessment & Plan: Assessment: iron infusions ~1 month ago Acute pain of right knee08/04/2022Vaginal pain08/04/2022Right flank pain 08/04/2022Rash and nonspecific skin gbvfzbes09/07/2023History of sleep apnea 06/24/2022History of Isabel-en-Y gastric renkqn2306/24/2022ipolar disorder 06/21/2022astric xqyuqy5701/29/2022ONV (postoperative nausea and vomiting) 01/29/2022Ventral hernia without obstruction or fjggqsiz10/27/2022 Overview (08/04/2022): Last Assessment & Plan: Assessment: will have surgery Calculus of pltjzh5703/10/2021History of sleeve jvhmefczwxc07/22/2021 Overview (08/04/2022): Last Assessment & Plan: Assessment: 08/2020, down 50 lbs Ndiddu1508/21/2020 Overview (08/04/2022): Last Assessment & Plan: Assessment: Advair BID and Albuterol daily Unilateral primary osteoarthritis, right knee04/26/2020bnormal finding on imaging of liver04/07/2020evere protein-calorie malnutrition (HHS-HCC) 1Right upper quadrant abdominal pain01/31/2020Situational stress 01/03/2020Panic disorder without vyjqixzqscx55/06/2020Back pain10/15/2019Malaise and lnadbek9710/06/2019Chronic bilateral low back pain without vfrwedst59/21/2020 Ytizhrv5810/06/20195892Pcdbrgr88/10/2020 Overview (08/04/2022): Last Assessment & Plan: Assessment: BMI 31.8 Benign essential HTN09/25/2019 Overview (08/04/2022): Last Assessment & Plan: Assessment: not on meds,monitored per PCP BP 141/70 pulse 62 Regurgitation of food09/25/2019Preoperative jdoaxtrjknc33/10/2020Nausea 09/25/2019Obstructive sleep apnea rnaoxjrs56/23/2019 Overview (08/04/2022): wears mask every night Last Assessment & Plan: Assessment: uses CPAP nightly Laryngopharyngeal njsuwf9610/07/2018Adrenal yiileuffmobh04/20/2019Insulin wsjxptlaec95/19/2019Reactive swdeocxdbkip06/19/2019Iron qaqarzraap87/05/2019 Chronic fatigue mlxeesjc96/05/2019Vitamin D ootgxishkv20/05/2019Insomnia 09/15/2018Maltracking of right tzrryjb6806/27/2018Internal derangement of right knee06/15/2018Osteoarthritis of patellofemoral joint05/30/2018Chondromalacia of patella, right05/30/2018Arthritis of right knee05/30/2018Hypothyroidism affecting in second yberyzxkq29/08/2018Hypertensive yfxwilbr99/30/2018 39 weeks gestation of ([facility])11/23/2016Polycystic qhjxlvw5410/02/2013 Asthma without status lzhqlmcvono10/18/2014Gastric ulcer02/15/2013 Overview (08/04/2022): Last Assessment & Plan: [...] Date RecordedSex Assigned at BirthNot on fileLegal IlnQujjvx18/01/2023 8:33 PM EDTGender IdentityNot on fileSexual OrientationNot on file Last Filed Vital Signs Vital SignReadingTime TakenCommentsBlood Toieutyd721/8009 8:40 AM EDT Pulse--Temperature--Respiratory Rate--Oxygen Saturation--Inhaled Oxygen Concentration--Uhtkzf64.9 kg (185 lb)12/14/2023 2:11 PM NYLMtuhht587.6 cm (5' 6 )12/14/2023 2:11 PM EDTBody Mass Index29.8612/14/2023 2:11 PM EDT Plan of Treatment Not on file Insurance Care Teams Team MemberRelationshipSpecialtyStart DateEnd Date Thomas Alas MD [address] [place] [address] PCP - GeneralFamily Dgvsrlkl89/29/24 Anna Mendez NP [address] [place] [address] Referring Physicianmily Medicine07/23/22
--- OUTSIDE RECORDS SUMMARY | 2025-01-09 12:17 | XMS_ITS | Clinical Summary ---
Author Organization [facility] Address [address], [address] [place] [address] Care Team Providers Care Classroom Technology Technician Name Role Phone Thomas Alas MD Primary Care Provider [phone] Allergies Active AllergyReactionsCriticalityNoted DateCommentsAdhesive TapeOther (See Comments)Itrnjc3102/07/2020 Sensitive to certain adhesive tapes. Redness and itchy. CodeineNausea And RcwydtzzUmc48/09/2025NsaidsOther (See Comments)01/29/2022 Gastric bypass S/p RYGB S/p RYGB Oxycodone-SwhhrkrhbvcxwSettzrmlrueAovq89/30/2023Wound Dressing AdhesiveOther (See Comments)Cuakyg2602/07/2020 Sensitive to certain adhesive tapes. Redness and [...] MG tablet Take 1 tablet by mouth eqzsovx47/5Active ranolazine (RANEXA) 500 MG extended release tablet [...] EVERY 3 DAYS WITH A 25MCG PATCH5Active Active Problems ProblemNoted DateDiagnosed DateIntractable nausea and poehiiix69/14/2023 Encounters DateTypeDepartmentCare UtfgMgizktiabij78/27/2025Results Follow-Up [facility] Emergency Department [address] [place] [address] Kera Smith RN 12/04/2024 2:32 PM EDT - 12/[facility] [address] [place] [address] Hematuria, unspecified type (Primary Dx) Discharge Disposition: Home or Self Care12/04/20241689Qmgxsl79/18/2025 10:18 AM EDT - 12/02/2024 12:[facility] [address] [place] [address] Gross hematuria (Primary Dx); Painful bladder spasm; Right flank pain Discharge Disposition: Home or Self Care12/02/20244892Jmkmsi70/09/2025 5:32 PM EDT - 11/23/2024 8:26 [facility] [address] [place] [address] Shelley Sanz DO Acute urinary retention (Primary Dx); Acute UTI Discharge Disposition: Home or Self Care11/23/20246184Bthoer09/01/2025 1:15 PM EDT - 11/15/2024 6[facility] [address] [place], [place] [id number] Jory Hurd DO Chest pain, unspecified type (Primary Dx) Discharge Disposition: Another Acute Care Lgsjnsiq50/01/0423Hswarr70/24/2025 12:31 PM EDT - 11/09/2024 8:42 AM JUNTEhelene Debbie [facility] [address] [id number] Oc Graham MD Chest pain, unspecified type (Primary Dx) Discharge Disposition: Another Acute Care Eeumoqih50/24/2025Travelfrom Last 3 Months Social History Tobacco UseTypesPacks/DayYears [...] Safety Domain Source: IP Abuse ScreeningAnswerDate RecordedPhysical kbftfRjqljf33/18/2025 Verbal jxgyoWfdqey91/18/2025Emotional zygqrFdmnnb18/18/2025Financial abuseDenies 12/02/2024Sexual uvismQhcfrb45/18/2025CommentsNoSex and Gender InformationValueDate RecordedSex Assigned at BirthNot on fileLegal SexFemale 04/12/2013 2:41 PM ESTGender IdentityNot on fileSexual OrientationNot on file Last Filed Vital Signs Vital SignReadingTime TakenCommentsBlood Qdnxgsjq148/4612/04/2024 6:01 PM EDT Bijyu380512/04/2024 2:30 PM QCYBcsmrtaqxsy33.7 ??C (98.1 ??F)12/04/2024 2:30 PM EDTRespiratory Bbjq4739 2:30 PM EDTOxygen Ocvtluhmxy92%12/04/2024 6:01 PM EDTInhaled Oxygen Concentration--Wtnotx29.6 kg (180 lb)12/02/2024 10:14 AM RTZAfhpqe004.6 cm (5' 6 )12/02/2024 10:14 AM EDTBody Mass Index29.0512/02/2024 10:14 AM EDT Plan of Treatment Health MaintenanceDue DateLast XmgiZymiezivVqrhnx83/17/2000Depression Screen 2001Varicella vaccine (1 of 2 - 13+ 2-dose series)2002HIV screen 2004Hepatitis C xniabq6004/03/2007Hepatitis B vaccine (1 of 3 - 19+ [...] DiagnosisCommentsCT UROGRAMSTAT 12/04/2024 4:29 PM EDT MICROSCOPIC OUOAYHFPUXZhonwhm06/20/2025 2:55 PM EDT HUJOOFAOKJKHXW59/20/2025 2:55 PM EDT CULTURE, APSLYZXGQ13/20/2025 2:55 PM EDT PROTIME-XZRAOXX5812/04/2024 2:53 PM EDT BASIC METABOLIC NTJYQDCRS57/20/2025 2:53 PM EDT CBC WITH AUTO DQZXNHQGIKXETHVI07/20/2025 2:53 PM EDT MICROSCOPIC NQGSFZNDVZNxraexg68/18/2025 11:54 AM EDT URINALYSIS WITH REFLEX TO USQXBGQJXMF41/18/2025 11:[address] ABDOMEN PELVIS WO MEIFCBVUZVAX61/18/2025 11:30 AM EDT SJDJNOVJUHVJK99/18/2025 11:12 AM EDT LACTIC EGXDNMCG68/18/2025 11:12 AM EDT CBC WITH AUTO LIMPDIECEKFKTRFC61/18/2025 11:12 AM EDT COMPREHENSIVE METABOLIC ZASXTTOXZ30/18/2025 11:12 AM EDT EKG 12-ZXXNLrkcwrd75/09/2025 6:44 PM EDT YVAFSHULIMZW54/09/2025 6:16 PM EDT BASIC METABOLIC LLIRBHEZI27/09/2025 6:16 PM EDT CBC WITH AUTO TBMUDAKWRLJEEOFP42/09/2025 6:16 PM EDT MICROSCOPIC FNFPEXYKFTIwesprp32/09/2025 5:40 PM EDT URINALYSIS WITH REFLEX TO SCWWCILZVQG87/09/2025 5:40 PM EDT OAGNNVDQJZUL61/01/2025 2:35 PM EDT JWNADUVI06/01/2025 1:25 PM EDT PROTIME-XBBIQHE6911/15/2024 1:25 PM EDT BRAIN NATRIURETIC YUYKCCCVNMS40/01/2025 1:25 PM EDT WIWKIZIXJORA73/01/2025 1:25 PM EDT CBC WITH AUTO XFNUGCFSNLJRBYIO87/01/2025 1:25 PM EDT BASIC METABOLIC YPJOMWOXL24/01/2025 1:25 PM EDT XR CHEST GVDQAHHIWMMO83/01/2025 1:24 PM EDT EKG 12-ZSBSVAKV35/01/2025 1:19 PM EDT POCT UVUQDSBEppmvyc03/24/2025 11:06 PM EDT POCT YQCEOGTMBCI58/24/2025 11:06 PM EDT POCT NIYSQREGMBJ88/24/2025 8:09 PM EDT POCT QMSVOABHnycbvr94/24/2025 7:55 PM EDT MKJZPTUAZFPI04/24/2025 6:38 PM EDT POCT WXTPWCOBrahhqn83/24/2025 4:04 PM EDT EKG 12-HFNYYGVT68/24/2025 4:01 PM EDT POCT NZNGOIWMonzzkn32/24/2025 2:03 PM EDT CTA CHEST ABDOMEN PELVIS W WO KKGQBGSSAIZN56/ 1:43 PM EDT PROTIME-KROSEDI7211/08/2024 1:39 PM EDT UHXEJPVW44/24/2025 1:39 PM EDT POCT RNSRXIXKJSHSJZ59/24/2025 1:16 PM EDT POCT AUITGILqinxfk23/24/2025 1:14 PM EDT LUEHMBZWPKEB87/24/2025 12:50 PM EDT COMPREHENSIVE METABOLIC PANEL W/ REFLEX TO MG FOR LOW KSTAT11/08/2024 12:50 PM EDT CBC WITH AUTO WOXZHHEQBQTWTGRY46/24/2025 12:50 PM EDT POCT UATJYRZYywpran65/24/2025 12:38 PM EDT EKG 12-CLBVCevydyb54/24/2025 12:37 PM EDT from Last 3 Months [...] or significant change noted. Authorizing ProviderResult TypeResult StatusNeeta Marion PULP TESTER - CNPIMG CT ORDERABLESFinal Result * (ABNORMAL) Microscopic Urinalysis (12/04/2024 2:55 PM EDT) Only the most recent of3 resultswithin the time period is included. ComponentValueRef RangeTest MethodAnalysis TimePerformed AtPathologist Signature WBC, UA2 TO 50 - 5 /HPF12/04/2024 2:55 PM [facility] RBC, UAGREATER THAN 1000 - 2 /HPF12/04/2024 2:55 PM [facility] LABEpithelial Cells, UA0 TO 20 - 25 /HPF12/04/2024 2:55 PM [facility] LABBacteria, UA2+(A)None12/04/2024 2:55 PM [facility] LABSpecimen (Source)Anatomical Location / Laterality Collection Method / VolumeCollection TimeReceived Time12/04/2024 2:55 PM EDT 12/04/2024 3:03 PM EDT Narrative Authorizing ProviderResult TypeResult StatusCrystalciemily Marion PULP TESTER - CNPURINE ORDERABLESFinal ResultPerforming OrganizationAddressCity/State/ZIP CodePhone Number [facility] [address] [id number], [facility] [phone] * (ABNORMAL) Urinalysis (12/04/2024 2:55 PM EDT)ComponentValueRef RangeTest MethodAnalysis TimePerformed AtPathologist SignatureColor, UARed(A)Yellow 12/04/2024 2:55 PM [facility] LABTurbidity UAClearClear 12/04/2024 2:55 PM [facility] LABGlucose, UrNEGATIVE NEGATIVE mg/dL12/04/2024 2:55 PM [facility] LABBilirubin, VkgbuVDAOHRXPIZFUVVFT55/20/2025 2:55 PM [facility] Ketones, Urine1+(A)NEGATIVE mg/dL12/04/2024 2:55 PM [facility] LABSpecific [place], UA1.0201.010 - 1.7267212/04/2024 2:55 PM [facility] LABUrine Hgb3+(A)AYEKTPAC02/20/2025 2:55 PM [facility] LABpH, Urine7.05.0 - 9. 2:55 PM [facility] LABProtein, UA2+(A)NEGATIVE mg/dL12/04/2024 2:55 PM EDT [facility] LABUrobilinogen, UrineELEVATED0.0 - 1.0 EU/dL 12/04/2024 2:55 PM [facility] LABNitrite, UrinePOSITIVE (A)HJDTPHRZ97/20/2025 2:55 PM [facility] LABLeukocyte Esterase, UrineSMALL(A)TOWJPXPF06/20/2025 2:55 PM [facility] LABSpecimen (Source)Anatomical Location / LateralityCollection Method / VolumeCollection TimeReceived TimeUrineURINE SPECIMEN / Watimdc5312/04/2024 2:55 PM EDT1 3:03 PM EDT Narrative Authorizing ProviderResult TypeResult StatusMarpapa Marion PULP TESTER - CNPURINE ORDERABLESFinal ResultPerforming OrganizationAddressCity/State/ZIP CodePhone Number [facility] [address] [place], [place] [address] [phone] * (ABNORMAL) Culture, Urine (12/04/2024 2:55 PM EDT)ComponentValueRef RangeTest MethodAnalysis TimePerformed AtPathologist SignatureSpecimen Description.CLEAN CATCH URINE12/04/2024 2:55 PM [facility] LABSpecial RequestsSite: Urine12/04/2024 2:55 PM [facility] CulturePSEUDOMONAS FLUORESCENS >100,000 CFU/ML(A)12/04/2024 2:55 PM EDTMERCY LABORATORIESCultureSTENOTROPHOMONAS (XANTHOMONAS) MALTOPHILIA >100,000 CFU/ML (A)12/04/2024 2:55 PM EDTMERCY LABORATORIESSpecimen (Source)Anatomical Location / LateralityCollection Method / VolumeCollection TimeReceived Time UrineURINE SPECIMEN / Lwbrjkd1512/04/2024 2:55 PM EDT1 6:26 PM EDT Narrative OrganismAntibioticMethodSusceptibilityPseudomonas fluorescenslevofloxacin BACTERIAL SUSCEPTIBILITY PANEL SANDHYA 0.5: Sensitive Pseudomonas fluorescenspiperacillin-tazobactamBACTERIAL SUSCEPTIBILITY PANEL SANDHYA 8: Sensitive Stenotrophomonas maltophilialevofloxacinBACTERIAL SUSCEPTIBILITY PANEL SANDHYA 0.25: Sensitive Stenotrophomonas maltophiliatrimethoprim-sulfamethoxazoleBACTERIAL SUSCEPTIBILITY PANEL SANDHYA <=20: Sensitive Authorizing ProviderResult TypeResult StatusNeeta Marion PULP TESTER - ELECTRICAL EQUIPMENT TECHNICIAN MICROBIOLOGY - GENERAL ORDERABLESFinal ResultPerforming OrganizationAddress City/State/ZIP CodePhone Number [facility] [address] [place] [address], [facility] [phone] [facility] [employer] [address] [place] [address] * (ABNORMAL) CBC with Auto Differential (12/04/2024 2:53 PM EDT) Only the most recent of5 resultswithin the time period is included. ComponentValueRef RangeTest MethodAnalysis TimePerformed AtPathologist Signature WBC4.13.5 - 11.3 k/uL12/04/2024 2:53 PM [facility] LABRBC 3.21(L)3.95 - 5.11 m/uL12/04/2024 2:53 PM [facility] Hemoglobin9.4(L)11.9 - 15.1 g/dL12/04/2024 2:53 PM [facility] VJUJoewlftuhz99.2(L)36.3 - 47.1 %12/04/2024 2:53 PM [facility] WEYKRH01.982.6 - 102.9 fL12/04/2024 2:53 PM [facility] BRLNTL68.325.2 - 33.5 pg12/04/2024 2:53 PM [facility] RIHZAXP08.328.4 - 34.8 g/dL12/04/2024 2:53 PM [facility] JUFPEZ16.711.8 - 14.4 %12/04/2024 2:53 PM [facility] NUQQdptilxwc477474 - 453 k/uL12/04/2024 2:53 PM [facility] ZSVVKX23.68.1 - 13.5 fL12/04/2024 2:53 PM [facility] LABNRBC Automated0.00.0 per 100 WBC12/04/2024 2:53 PM [facility] LABNeutrophils %5136 - 65 %12/04/2024 2:53 PM [facility] LABLymphocytes %3724 - 43 %12/04/2024 2:53 PM [facility] LABMonocytes %93 - 12 %12/04/2024 2:53 PM [facility] LABEosinophils %21 - 4 %12/04/2024 2:53 PM [facility] LABBasophils %10 - 2 %12/04/2024 2:53 PM [facility] LABImmature Granulocytes %00 %12/04/2024 2:53 PM [facility] LABNeutrophils Absolute2.091.50 - 8.10 k/uL12/04/2024 2:53 PM [facility] LABLymphocytes Absolute1.491.10 - 3.70 k/uL12/04/2024 2:53 PM [facility] LABMonocytes Absolute0.360.10 - 1.20 k/uL12/04/2024 2:53 PM [facility] LABEosinophils Absolute 0.080.00 - 0.44 k/uL12/04/2024 2:53 PM [facility] Basophils Absolute0.040.00 - 0.20 k/uL12/04/2024 2:53 PM [facility] LABImmature Granulocytes Absolute<0.030.00 - 0.30 k/uL12/04/2024 2:53 PM [facility] LABSpecimen (Source)Anatomical Location / LateralityCollection Method / VolumeCollection TimeReceived TimeBloodBLOOD SPECIMEN / Tpwstdq6012/04/2024 2:53 PM EDT1 3:02 PM EDT Narrative Authorizing ProviderResult TypeResult StatusMarciemily Marion PULP TESTER - [facility] HEMATOLOGY ORDERABLESFinal ResultPerforming OrganizationAddressCity/State/ZIP CodePhone Number [facility] [address] [phone] * Protime-INR (12/04/2024 2:53 PM EDT) Only the most recent of3 resultswithin the time period is included. ComponentValueRef RangeTest MethodAnalysis TimePerformed AtPathologist Signature Zbklxof59.112.0 - 15.0 sec12/04/2024 2:53 PM [facility] INR1.110 2:53 PM [facility] LABComment: ? Therapeutic Range: Moderate Anticoagulant Intensity: INR = 2.0-3.0 High Anticoagulant Intensity: INR = 2.5-3.5 Specimen (Source)Anatomical Location / LateralityCollection Method / Volume Collection TimeReceived TimeBloodBLOOD SPECIMEN / Fyzoltu6612/04/2024 2:53 PM EDT 12/04/2024 3:02 PM EDT Narrative Authorizing ProviderResult TypeResult StatusMarpapa Marion PULP TESTER - ELECTRICAL EQUIPMENT TECHNICIAN HEMATOLOGY ORDERABLESFinal ResultPerforming OrganizationAddressCity/State/ZIP CodePhone Number [facility] [address] [id number] [phone] * (ABNORMAL) BMP (12/04/2024 2:53 PM EDT) Only the most recent of3 resultswithin the time period is included. ComponentValueRef RangeTest MethodAnalysis TimePerformed AtPathologist Signature Xsclnl672351 - 145 mmol/L1 2:53 PM [facility] Potassium3.93.7 - 5.3 mmol/L1 2:53 PM [facility] UEWCsnjtgcs155(H)98 - 107 mmol/L1 2:53 PM [facility] QNRUP10358 - 31 mmol/L1 2:53 PM [facility] LABAnion Gap8(L)9 - 16 mmol/L1 2:53 PM [facility] CEJZuxylxo9839 - 99 mg/dL12/04/2024 2:53 PM [facility] HBGJGY06 - 20 mg/dL12/04/2024 2:53 PM [facility] LABCreatinine0.60.50 - 0.90 mg/dL12/04/2024 2:53 PM [facility] LABEst, Glom Filt Rate>90>60 mL/min/1.83q94012/04/2024 2:53 PM [facility] LABComment: ? These results are not [...] therapy that affects renal tubular secretion. BUN/Creatinine Wvnhd775 - 2:53 PM [facility] LABCalcium8.2(L)8.6 - 10.4 mg/dL12/04/2024 2:53 PM [facility] LABSpecimen (Source)Anatomical Location / LateralityCollection Method / VolumeCollection TimeReceived TimeBloodBLOOD SPECIMEN / Azjbrfq5212/04/2024 2:53 PM EDT1 3:02 PM EDT Narrative Authorizing ProviderResult TypeResult StatusMarciemily Marion PULP TESTER - CNPCHEMISTRY ORDERABLESFinal ResultPerforming OrganizationAddressCity/State/ZIP CodePhone Number [facility] [address] [phone] * (ABNORMAL) Urinalysis with Reflex to Culture (12/02/2024 11:54 AM EDT) Only the most recent of2 resultswithin the time period is included. ComponentValueRef RangeTest MethodAnalysis TimePerformed AtPathologist Signature Color, UARed(A)Vopxmz3512/02/2024 11:54 AM [facility] Turbidity KFKmaxuXyvxd29/18/2025 11:54 AM [facility] Glucose, UrNEGATIVENEGATIVE mg/dL12/02/2024 11:54 AM [facility] LABBilirubin, RunepVNCQBQQEAISZRAQF02/18/2025 11:54 AM [facility] LABKetones, UrineNEGATIVENEGATIVE mg/dL12/02/2024 11:54 AM EDT [facility] LABSpecific [place], UA1.0101.010 - 1.0732412/02/2024 11:54 AM [facility] LABUrine Hgb3+(A)AJABJLVL83/18/2025 11:54 AM [facility] LABpH, Urine7.05.0 - 9.010 11:54 AM [facility] LABProtein, UATRACE(A)NEGATIVE mg/dL 12/02/2024 11:54 AM [facility] LABUrobilinogen, UrineNormal 0.0 - 1.0 EU/dL12/02/2024 11:54 AM [facility] LABNitrite, UtvkcALNVMBNMVZZDJCFD87/18/2025 11:54 AM [facility] Leukocyte Esterase, SkzflSXFKBSWMODDHDTYS74/18/2025 11:54 AM [facility] LABSpecimen (Source)Anatomical Location / LateralityCollection Method / VolumeCollection TimeReceived TimeURINE SPECIMEN / Yirsrkd1312/02/2024 11:54 AM EDT1 11:57 AM EDT Narrative Authorizing ProviderResult TypeResult StatusDavid Chris DUNCAN ORDERABLES Final ResultPerforming OrganizationAddressCity/State/ZIP CodePhone Number [facility] [address] [phone] * CT ABDOMEN PELVIS WO CONTRAST Additional [...] or pelvis. Authorizing ProviderResult TypeResult StatusDavid Chris [facility] ORDERABLES Final Result * Magnesium (12/02/2024 11:12 AM EDT)ComponentValueRef RangeTest MethodAnalysis TimePerformed AtPathologist SignatureMagnesium1.81.6 - 2.6 mg/dL12/02/2024 11:12 AM [facility] LABSpecimen (Source)Anatomical Location / LateralityCollection Method / VolumeCollection TimeReceived Time BloodBLOOD SPECIMEN / Qvnxzco3612/02/2024 11:12 AM EDT1 11:14 AM EDT Narrative Authorizing ProviderResult TypeResult StatusDavid Chris [facility] HEALTHEMISTRY ORDERABLESFinal ResultPerforming OrganizationAddressCity/State/ZIP CodePhone Number [facility] [address] [place] [address] * Lactic Acid (12/02/2024 11:12 AM EDT)ComponentValueRef RangeTest Method Analysis TimePerformed AtPathologist SignatureLactic Acid0.80.5 - 2.2 mmol/L 12/02/2024 11:12 AM [facility] LABSpecimen (Source) Anatomical Location / LateralityCollection Method / VolumeCollection Time Received TimeBloodBLOOD SPECIMEN / Mnpixez1712/02/2024 11:12 AM EDT1 11:14 AM EDT Narrative Authorizing ProviderResult TypeResult StatusDavijose Perez [place]-CCHEMISTRY ORDERABLESFinal ResultPerforming OrganizationAddressCity/State/ZIP CodePhone Number [facility] [address] [place] [address] * (ABNORMAL) CMP (12/02/2024 11:12 AM EDT)ComponentValueRef RangeTest Method Analysis TimePerformed AtPathologist XnmqgmygdYdaldh752547 - 145 mmol/L 12/02/2024 11:12 AM [facility] LABPotassium3.93.7 - 5.3 mmol/L1 11:12 AM [facility] TLVFbudntqm64509 - 107 mmol/L1 11:12 AM [facility] VSCTH55614 - 31 mmol/L1 11:12 AM [facility] LABAnion Gap99 - 16 mmol/L1 11:12 AM [facility] FXSBmgrvoa1620 - 99 mg/dL12/02/2024 11:12 AM [facility] QIQPQH42 - 20 mg/dL 12/02/2024 11:12 AM [facility] LABCreatinine0.70.50 - 0.90 mg/dL12/02/2024 11:12 AM [facility] LABEst, Glom Filt Rate>90>60 mL/min/1.10h64212/02/2024 11:12 AM [facility] LABComment: ? These results are not [...] therapy that affects renal tubular secretion. BUN/Creatinine Hukdl777 - 11:12 AM [facility] LABCalcium8.4(L)8.6 - 10.4 mg/dL12/02/2024 11:12 AM [facility] LABTotal Protein6.0(L)6.6 - 8.7 g/dL12/02/2024 11:12 AM [facility] LABAlbumin3.73.5 - 5.2 g/dL12/02/2024 11:12 AM [facility] LABAlbumin/Globulin Ratio1.61.0 - 2.510 11:[address] [facility] LABTotal Bilirubin0.30.00 - 1.20 mg/dL12/02/2024 11:12 AM [facility] LABAlkaline Oflxfkmpuwa8233 - 104 U/L 12/02/2024 11:12 AM [facility] JQYHCO37(H)10 - 35 U/L 12/02/2024 11:12 AM [facility] IRKQXU67(H)10 - 35 U/L 12/02/2024 11:12 AM [facility] LABSpecimen (Source) Anatomical Location / LateralityCollection Method / VolumeCollection Time Received TimeBloodBLOOD SPECIMEN / Ecznegg8412/02/2024 11:12 AM EDT1 11:14 AM EDT Narrative Authorizing ProviderResult TypeResult StatusDavid Chris GONZALEZMADISON HEALTHEMISTRY ORDERABLESFinal ResultPerforming OrganizationAddressCity/State/ZIP CodePhone Number [facility] [address] [phone] * EKG 12 Lead (11/23/2024 6:44 PM EDT) Only the most recent of4 resultswithin the time period is included. ComponentValueRef RangeTest MethodAnalysis TimePerformed AtPathologist Signature Ventricular Psms77NQHPGAN MTH RADIOLOGYAtrial Hesb41AIHRBVM [facility] RADIOLOGYP-R Vfjbkpkn692uiCQWQ [facility] RADIOLOGYQRS Jodxhvdw75jaIWKU [facility] RADIOLOGYQ-T Vxtsfrlb622 msMHPN [facility] RADIOLOGYQTc Calculation (Bazett)486msMHPN [facility] RADIOLOGYP Axis74 degreesMHPN [facility] RADIOLOGYR Uqku19pfihukdDPQN [facility] RADIOLOGYT Gkaz37kdbzeqaAWWP [facility] RADIOLOGYSpecimen (Source)Anatomical Location / LateralityCollection Method / VolumeCollection TimeReceived Time11/23/2024 6:44 PM EDT Narrative [facility] RADIOLOGY - 11/23/2024 11:05 PM [...] No significant change was found Confirmed by Bard Good ([id number]) on 11/23/2024 11:05:14 PM Authorizing ProviderResult TypeResult StatusChtayler Sanz DOECG ORDERABLES Final ResultPerforming OrganizationAddressCity/State/ZIP CodePhone Number [facility] * Troponin (11/23/2024 6:16 PM EDT) Only the most recent of5 resultswithin the time period is included. ComponentValueRef RangeTest MethodAnalysis TimePerformed AtPathologist Signature Troponin, High Sensitivity<60 - 14 ng/L1 6:16 PM [facility] LABComment:High Sensitivity Troponin values cannot be compared with other Troponin methodologies.Specimen (Source)Anatomical Location / Laterality Collection Method / VolumeCollection TimeReceived TimeBloodBLOOD SPECIMEN / Fgflemw5111/23/2024 6:16 PM EDT1 7:20 PM EDT Narrative Authorizing ProviderResult TypeResult StatusShelley Sanz DOCHEMISTRY ORDERABLESFinal ResultPerforming OrganizationAddressCity/State/ZIP CodePhone Number [facility] [address] [place] [address] * APTT (11/15/2024 1:25 PM EDT) Only the most recent of2 resultswithin the time period is included. ComponentValueRef RangeTest MethodAnalysis TimePerformed AtPathologist Signature APTT27.823.1 - 33.7 sec11/15/2024 1:25 PM [facility] Comment: ? IV Heparin Therapy Range: ?62.0-94.0 ? Specimen (Source)Anatomical Location / LateralityCollection Method / Volume Collection TimeReceived TimeBloodBLOOD SPECIMEN / [id number]/15/2024 1:25 PM EDT 11/15/2024 1:49 PM EDT Narrative Authorizing ProviderResult TypeResult StatusJory Hurd DOHEMATOLOGY ORDERABLESFinal ResultPerforming OrganizationAddressCity/State/ZIP CodePhone Number [facility] [address] [place] [address] * (ABNORMAL) Brain Natriuretic Peptide (11/15/2024 1:25 PM EDT)ComponentValueRef RangeTest MethodAnalysis TimePerformed AtPathologist SignatureNT Pro-VCO181(H) 0 - 125 pg/mL11/15/2024 1:25 PM [facility] LABSpecimen (Source)Anatomical Location / LateralityCollection Method / VolumeCollection TimeReceived TimeBloodBLOOD SPECIMEN / [id number]/15/2024 1:25 PM EDT1 1:49 PM EDT Narrative Authorizing ProviderResult TypeResult StatusAlexafelicia Hurd DOCHEMISTRY ORDERABLESFinal ResultPerforming OrganizationAddressCity/State/ZIP CodePhone Number [facility] [address] [place] [address], [facility] [phone] * XR CHEST PORTABLE (11/15/2024 1:24 PM [...] 1. No acute abnormalities. Authorizing ProviderResult TypeResult StatusAlexafelicia Hurd DOI DIAGNOSTIC IMAGING ORDERABLESFinal Result * (ABNORMAL) POCT Glucose (11/08/2024 11:06 PM EDT) Only the most recent of7 resultswithin the time period is included. ComponentValueRef RangeTest MethodAnalysis TimePerformed AtPathologist Signature POC Lqyqoqn616(H)70 - 99 mg/dl11/08/2024 11:06 PM [facility] LABPerformed onACCU-CHEK11/08/2024 11:06 PM [facility] LABSpecimen (Source)Anatomical Location / LateralityCollection Method / VolumeCollection TimeReceived Time11/08/2024 11:06 PM EDT11/08/2024 11:19 PM EDT Narrative Authorizing ProviderResult TypeResult StatusUnknown Provider ResultPOINT OF CARE TEST ORDERABLESFinal ResultPerforming OrganizationAddressCity/State/ZIP Code Phone Number [facility] [address] [place] [place] [address], [facility] [phone] * CTA CHEST ABDOMEN PELVIS W WO [...] post gastric bypass procedure. Authorizing ProviderResult TypeResult StatusAlen Santos [facility] ORDERABLESFinal Result * POCT Creatinine (11/08/2024 1:16 PM EDT)ComponentValueRef RangeTest Method Analysis TimePerformed AtPathologist SignaturePOC CREATININE WHOLE BLOOD0.6 Specimen (Source)Anatomical Location / LateralityCollection Method / Volume Collection TimeReceived TimeBLOOD SPECIMEN / Monrptq6511/08/2024 1:16 PM EDT Narrative Authorizing ProviderResult TypeResult StatusOc Graham MDPOINT OF CARE TEST ORDERABLESFinal Result * POCT Venous (11/08/2024 1:14 PM EDT)ComponentValueRef RangeTest MethodAnalysis TimePerformed AtPathologist SignaturePOC Creatinine0.60.6 - 1.2 mg/dL 11/08/2024 1:14 PM [facility] LABEst, Glom Filt Rate>90 >60011/08/2024 1:14 PM [facility] LABComment: Pediatric calculator link https://www.kidney.org/professionals/kdoqi/gfr_calculatorped Effective [...] therapy that affects renal tubular secretion. Sample NaaeZER2011/08/2024 1:14 PM [facility] LABPerformed on SEE BELOW11/08/2024 1:14 PM [facility] LABComment:Performed on POCSpecimen (Source)Anatomical Location / LateralityCollection Method / VolumeCollection TimeReceived Time11/08/2024 1:14 PM EDT11/08/2024 1:54 PM EDT Narrative Authorizing ProviderResult TypeResult StatusOc Graham MDPOINT OF CARE TEST ORDERABLESFinal ResultPerforming OrganizationAddressCity/State/ZIP CodePhone Number [facility] [address] [place] [id number], [facility] [phone] * (ABNORMAL) Comprehensive Metabolic Panel w/ Reflex to MG (11/08/2024 12:50 PM EDT)ComponentValueRef RangeTest MethodAnalysis TimePerformed AtPathologist NiiciysvbObntey121866 - 144 mEq/L11/08/2024 12:59 PM [facility] LABPotassium reflex Magnesium3.63.4 - 4.9 mEq/L11/08/2024 12:59 PM [facility] DOOAuazslol72853 - 107 mEq/L11/08/2024 12:59 PM [facility] VYYHA12610 - 31 mEq/L11/08/2024 12:59 PM [facility] LABAnion Gap99 - 15 mEq/L11/08/2024 12:59 PM [facility] QFEVfdlnhr8637 - 99 mg/dL11/08/2024 12:59 PM [facility] PWEYVY327 - 20 mg/dL11/08/2024 12:59 PM EDT [facility] LABCreatinine0.560.50 - 0.90 mg/dL11/08/2024 12:59 PM [facility] LABEst, Glom Filt Rate>90.0>60 11/08/2024 12:59 PM [facility] LABComment: Pediatric calculator link https://www.kidney.org/professionals/kdoqi/gfr_calculatorped Effective [...] secretion. Calcium8.3(L)8.5 - 9.9 mg/dL11/08/2024 12:59 PM [facility] LABTotal Protein6.2(L)6.3 - 8.0 g/dL11/08/2024 12:59 PM [facility] LABAlbumin3.83.5 - 4.6 g/dL11/08/2024 12:59 PM [facility] LABTotal Bilirubin0.40.2 - 0.7 mg/dL11/08/2024 12:59 PM [facility] LABAlkaline Wnkjnpniunn7752 - 130 U/L11/08/2024 12:59 PM EDT [facility] TAZFPO332 - 33 U/L11/08/2024 12:59 PM [facility] VLECWL516 - 35 U/L11/08/2024 12:59 PM [facility] LABGlobulin2.42.3 - 3.5 g/dL11/08/2024 12:59 PM [facility] LABSpecimen (Source)Anatomical Location / LateralityCollection Method / VolumeCollection TimeReceived TimeBloodBLOOD SPECIMEN / Unknown 11/08/2024 12:50 PM EDT11/08/2024 12:50 PM EDT Narrative Authorizing ProviderResult TypeResult StatusAlen Santos MDCHEMISTRY ORDERABLES Final ResultPerforming OrganizationAddressCity/State/ZIP CodePhone Number [facility] [address] [place] [address], [facility] [phone] from Last 3 Months Insurance [address] [place] [address] Advance Directives * Full Code (Latest Code Status on File) Date ActivatedDate TszuytmragmUoypyayi42/14/2023 11:57 AM12/03/2022 7:56 PM NameRelationshipHealthcare Agent RelationshipCommunicationEdna ArtinoParent Secondary Decision Maker* Roddy RajivusePrimary Decision Maker* Care Teams Team MemberRelationshipSpecialtyStart DateEnd Thomas Alas MD [address] [place] [phone] PCP - GeneralFamily Medicine11/08/24
--- OUTSIDE RECORDS SUMMARY | 2025-01-09 12:17 | XMS_ITS | Clinical Summary ---
Author Organization [facility] Address [address] [place] [address] Care Team Providers Care Package Winder Name Role Phone Britt Alas MD Primary Care Provider [phone] Vicky Cardenas RN Unavailable Unavailable Allergies Active AllergyReactionsCriticalityNoted XhxeUnnfxesdGgcjlkagPjkmPao57/02/2025 Adhesive Tape-CndixvzvbHciozInlbjj78/23/2020 Sensitive to certain adhesive tapes. Redness and itchy. CodeineNausea And GjdkijfjWjrlvn23/02/2025Nsaids (Non-Steroidal Anti- Inflammatory Drug)GI smeybwbwtlwDrswbo35/02/2025 Medications MedicationSigDispense QuantityRefillsLast FilledStart DateEnd DateStatus liothyronine [...] at bedtime (nausea and vomiting). 60 tablet 11/02/2024tive metoprolol succinate XL (Toprol-XL) 25 mg 24 hr tablet Indications:HematomaTake 1 tablet (25 mg) by mouth in the morning for 92 doses. Do not crush or chew. Do not start before November 08, 2024. 30 tablet tive verapamil (Calan) 40 mg tablet Indications:HematomaTake 1 tablet (40 mg) by mouth every 8 (eight) hours for 287 doses. 90 tablet /5Active rosuvastatin (Crestor) 40 mg tablet Indications:HematomaTake 1 tablet (40 mg) by mouth at bedtime for 99 doses. 30 tablet 5Active ranolazine (Ranexa) 500 mg 12 hr tablet Indications:Chest painTake 1 tablet (500 mg) by mouth two times daily for 189 doses. Do not crush, chew, or split. 60 tablet 6Active fentaNYL (Duragesic) 12 mcg/hr Place 1 patch on the skin every 3rd (third) day. Give with 25 mcg patchActive HYDROcodone-acetaminophen (Jones) 5-325 mg tablet Take 2 tablets by mouth every 4 (four) hours if needed.Active methocarbamol (Robaxin) 750 mg tablet Take 750 mg by mouth three times daily.Active mirtazapine (Remeron) 45 mg tablet Take 45 mg by mouth at bedtime.Active acetaminophen (Tylenol) 325 mg tablet Indications:Partial bowel obstruction (CMS/HCC)Take 2 tablets (650 mg) by mouth every 6 (six) hours for 395 doses. 30 tablet 502/ctive naloxone (Narcan) 0.4 mg/mL injection Indications:Chronic narcotic useInfuse 1 mL (0.4 mg) into a venous catheter if needed for opioid reversal. 1 mL Discontinued(Stop Taking at Discharge) colchicine 0.6 mg tablet Indications:Chest painTake 0.5 tablets (0.3 mg) by mouth every other day. Do not start before November 14, 2024. 8 tablet Discontinued(Stop Taking at Discharge) Active Problems ProblemNoted DateDiagnosed DatePartial bowel mrxtjsoxofk83/02/2025Obstructed internal lxrbnn2912/17/2024bnormal thyroid blood test12/05/2024llergic cvulnirimmiemt62/21/8403Kongrscr29/21/2025 Overview (12/05/2024): Problem List clean-up per request of Phys. EHR Cmte Edema12/05/20241025Jjjaaduybagg64/21/6918Gszmxrwotwe45/21/2025Otitis media of left ear12/05/2024Postgastric surgery mqeuejtq99/21/0708Yqfuzlrsi60/21/2025 Overview (12/05/2024): Problem List clean-up per request of Phys. EHR Cmte Common bile duct lopzsugkpi58/02/2025 Assessment & Plan (11/16/2024 2:13 AM EDT): CT chest/abd/pelvis noted CBD dilation and apperance of complex inflammatory changes. Patient has required multiple doses of opiates and antiemetics to control symptoms. Request to transfer to the [facility] where much of her advanced care has been provided with Specific concern that she may need ERCP/advanced endoscopy to further evaluation Pain management GI consult Disorder of endocrine ekdblk9111/09/2024Lumbar jusoklknnhokt62/25/2025Migraine 11/09/2024Severe protein-calorie malnutrition (Baxter: less than 60% of standard weight)11/09/2024Pseudoaneurysm of right femoral tadomy4711/09/2024 Assessment & Plan (11/12/2024 12:39 PM EDT): [...] -s/p hematoma evaluation and repair of pseudoaneurysm 11/02stable - follow Hgb Myocardial vsyomi1011/09/2024 Assessment & Plan (11/12/2024 12:39 PM EDT): [...] need to uptitrate verapamil if BP allows Vrkoactb47/18/2025Chest pain10/30/2024 Assessment & Plan (11/16/2024 2:13 AM [...] without complication, without long-term current use of ryqwclj5010/30/2024 Assessment & Plan (11/12/2024 12:39 PM EDT): [...] at home, will begin ISS, ACHS Primary dzvftxyzkpxx07/15/2025Other wylwiuzhuanugu62/15/8087Jhivpr30/15/2025 Assessment & Plan (11/02/2024 1:29 PM EDT): [...] Stable, last BM yesterday Median arcuate ligament tfhinjdp26/15/2025 Assessment & Plan (11/12/2024 12:39 PM EDT): [...] and then MALS release S/P laparoscopic sleeve igvfhibbeil15/15/2025 Assessment & Plan (11/12/2024 12:39 PM EDT): [...] 9:00 PM EDT): - Stable Protein calorie hjmizrcqkenj60/15/2025 Assessment & Plan (11/02/2024 1:29 PM EDT): [...] pain today patient brought urgently back to [facility] Assessment & Plan (11/01/2024 11:57 AM EDT): [...] -Pending TTE, cath Spontaneous dissection of coronary wautoa8710/30/2024 Assessment & Plan (11/12/2024 12:39 PM EDT): [...] pain today patient brought urgently back to [facility] Feeding fycmdlutooav14/09/2025roken central line09/21/2024Long term (current) use of opiate kzjkdoyno76/07/2025Poor response to enteral dnjebbwmt58/28/2025 Sepsis due to Owyaeehjxi78/04/2025 Assessment & Plan (08/19/2024 1:03 PM EDT): - source is likely the cellulitis around the J-tube status post J-tube removal. - CT scan from [facility] showing no abscess. - Infectious disease recommendations appreciated, continue with ceftriaxone. - Repeat blood cultures on 08/16: NGTD - central line in place, does not look like infected, continue monitoring, central line care. Assessment & Plan (08/18/2024 12:20 PM EDT): - source is likely the cellulitis around the J-tube status post J-tube removal. - CT scan from [facility] showing no abscess. - Infectious disease recommendations appreciated, continue with ceftriaxone. - Repeat blood cultures on 08/16: NGTD - central line in place, does not look like infected, continue monitoring, central line care. Sepsis due to Cbfxxtawoosz52/04/2025 Assessment & Plan (08/19/2024 1:03 PM EDT): - source is likely the cellulitis around the J-tube status post J-tube removal. - CT scan from [facility] showing no abscess. - Infectious disease recommendations appreciated, continue with ceftriaxone. - Repeat blood cultures on 08/16: NGTD - central line in place, does not look like infected, continue monitoring, central line care. Assessment & Plan (08/18/2024 12:20 PM EDT): - source is likely the cellulitis around the J-tube status post J-tube removal. - CT scan from [facility] showing no abscess. - Infectious disease recommendations appreciated, continue with ceftriaxone. - Repeat blood cultures on 08/16: NGTD - central line in place, does not look like infected, continue monitoring, central line care. Eigtetwhczapx16/04/2025 Assessment & Plan (11/12/2024 12:39 PM EDT): [...] admission. - As needed antiemetics Chronic pain ctpeqdux32/04/2025 Assessment & Plan (11/12/2024 12:39 PM EDT): [...] and scheduled tramadol. Continue with as needed Jones. Assessment & Plan (08/18/2024 12:20 PM EDT): - continue with home meds including fentanyl patch and scheduled tramadol. Continue with as needed Jones. 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 Assessment & Plan (08/18/2024 12:20 PM EDT): - status postresection. History of adrenal zppabgiufonao44/04/2025 Assessment & Plan (11/12/2024 12:39 PM EDT): [...] PM EDT): - continue with dexamethasone Acquired qnfcibmmqwnbxe98/04/2025 Assessment & Plan (11/16/2024 2:13 AM EDT): [...] 12:20 PM EDT): - continue with levothyroxine. Idnuzmywdjecvc83/03/2025 Assessment & Plan (11/12/2024 12:39 PM EDT): [...] well as other thyroid function testing Morbid dueblhm0908/17/2024 Assessment & Plan (08/19/2024 1:03 PM EDT): [...] daily DVT prophylaxis is VTE protocols per [facility] GI prophy Protonix Monitor labs) Obtain blood cultures Comments IV Vanco and cefepime Consult infectious diseases Early ambulation I discussed the plan of care with the patient and she is in agreement. Gcuenbbdcm36/03/2024 Assessment & Plan (08/17/2024 1:27 AM EDT): -Unclear blood cultures - Commence patient on Vanco/cefepime - Monitor patient blood cultures - Also evaluate lab tests and correct abnormalities - Consult infectious disease - Obtain 2D echocardiogram History of laparoscopic ktdmtorzfkaldyk80/25/2025hronic, continuous use of zerbgaj6804/11/2024Starvation tltenyckfgkw93/25/2025Intestinal jtjsvsizc28/07/2024 Screening for diabetes mellitus (DM)01/22/2024History of small bowel obstruction 01/21/2024Impaired intestinal gvnjytapwa34/18/9116Akxba88/25/2024urrent use of steroid tegxduwzlq35/21/2024ommunity acquired pneumonia of left lower lobe of lung08/07/2023Idiopathic ebhptswhqsu09/21/2024spiration pneumonia of left lower lobe due to vomit08/04/2023Syncope and eksmzesc25/19/2024Heart jctyaow6406/29/2023 Acute renal failure superimposed on chronic kidney fkhrnud9506/29/2023Hypokalemia 06/29/2023ecreased oral ymlwfj8205/25/20231803Bqisorjcyjllak99/19/2024nxiety and emggagzfwi64/23/2023Feeding ojlople6612/07/2022Therapeutic drug monitoring 12/07/20224632Covqteguyxc63/12/2023ilious vomiting with ujsyqq9110/28/2022Intractable vomiting with oruczf5510/25/20226802Rzbyuq09/20/2023 Overview (11/09/2024): Takes Pro FE daily. Last Assessment & Plan: Assessment: iron infusions ~1 month ago Acute pain of right knee08/04/2022all stone08/04/2022Internal derangement of right yoxtbdek90/20/2023Mixed incontinence urge and epkpnp0308/04/2022Other specified noninflammatory disorders of jkrkeo8808/04/2022atellofemoral pain syndrome of right knee08/04/2022Right flank pain08/04/2022Vaginal pain08/04/2022 Rash and nonspecific skin xykgmtvg19/07/2023History of Isabel-en-Y gastric bypass 06/24/2022ipolar ngdordhl00/07/2023astric chovmu8301/29/2022Iron deficiency fiazwj6511/01/2021Ventral hernia without obstruction or yychokpt34/27/2022 Overview (12/05/2024): Last Assessment & Plan: Assessment: will have surgery Calculus of vbvgmy3703/10/2021bnormal finding on imaging of liver04/07/2020 Moderate recurrent major gkokssfvjy89/18/2020Situational jwswuy8701/03/2020Panic disorder without nfdapifkxyt26/06/2020Trauma and stressor-related disorder 11/21/2019Duodenogastric reflux of bile11/16/20190736Slfkmt31/10/2020Preoperative vegnylypnzq80/10/2020Regurgitation of food09/25/2019Laryngopharyngeal reflux 10/07/2018Obstructive sleep apnea lpkcpmug54/23/2019 Overview (12/05/2024): wears mask every night Lpfzgitjmjuxij59/20/2019Reactive ariqisyvjryi09/19/2019Chronic fatigue syndrome 09/19/2018Iron lpybukzyja76/05/2019Vitamin D xvkoatzjma56/05/2019Insomnia 09/15/2018Maltracking of right eterxsq1306/27/2018Chondromalacia of patella, right 05/30/2018Arthritis of right knee05/30/201839 weeks gestation of 11/23/2016PCOS (polycystic ovarian syndrome)10/02/2013 Overview (11/09/2024): Last Assessment & Plan: Assessment: monitored per PCP Encounters DateTypeDepartmentCare DmkoTlnayurfbft87/20/2025Patient Outreach [facility] [address] [place] [address] Vicky Cardenas RN 01/03/2025Patient Outreach [facility] Based Care [address] [place] [address] Vicky Cardenas RN 01/03/2025Patient Outreach Value Based Care [address] [place] [phone] Vicky Cardenas RN Care Hmsimhsypygf60/19/2025Orders Only [facility] Surgery Clinic [address] [place] [phone] Blanka Parkinson RN Decreased oral intake (Primary Dx); History of Isabel-en-Y gastric bypass; Protein-calorie malnutrition, unspecified severity; Median arcuate ligament syndrome; Impaired intestinal qatwsyyppx90/18/2025Patient Outreach Value Based Care [address] [place] [phone] Vicky Cardenas RN Care Mosfzutwesjv20/13/2025 3:00 PM ESTOffice Visit [facility] Surgery Clinic [address] [place] [phone] Donnie Cesar MD History of Isabel-en-Y gastric bypass (Primary Dx)12/28/2024Patient Outreach Value Based Care [address] [place] [phone] Vicky Cardenas RN Care Svjezemqvugr01/03/2025 8:00 PM EST - 12/18/2024 9:45 PM ESTSurgery [facility] Main Operating Room [address] [place] [address] Donnie Cesar MD DIAGNOSTIC LAPAROSCOPY [60900 (CPT??)]12/18/2024 7:08 PM ESTAnesthesia Event [facility] Main Operating Room [address] [place] [address] Josue Walters MD Smay, Kyle, CAA 12/17/2024 10:07 AM EST - 12/21/2024 2:02 PM ESTHospital Encounter [facility] 6AB Ortho Surgery [address] [place] [address] Anne Marie Scott MD Partial bowel obstruction (CMS/HCC) (Primary Dx); Partial intestinal obstruction, unspecified cause (CMS/HCC); Obstructed internal hernia; Anemia due to acute blood loss Discharge Disposition: [place]-[facility] [place] [facility] [place])12/17/20241760Uupvep20/30/2025 9:18 AM EDTAnesthesia Event [facility] Endoscopy [address] [place] [phone] Sergei Randall MD Arnaut, Daniel, MD 12/14/2024 7:17 AM EDT - 12/14/2024 9:35 AM EDTHospital Encounter [facility] [address] [place] [phone] Braxton Bellamy MD Jackson, Jennifer, CAA Bhatt, Shashi B., MD Common bile duct dilatation; Chronic narcotic use Discharge Disposition: Home or Self Care ()12/14/20248535Ohtgfw22/24/2025Telephone [facility] Endoscopy [address] [place] [phone] Muna Michael RN 12/06/2024 11:20 AM EDTOffice Visit [facility] [address] [place] [address] Wali Collins MD Spontaneous dissection of coronary artery (Primary Dx); Other fatigue; Precordial pain; Anemia due to acute blood loss12/06/2024Orders Only [facility] [address] [place] [address] Maryuri Downing MA Anemia, unspecified type (Primary Dx)12/05/2024Orders Only [facility] [address] [place] [address] Siri Dotson MD 12/04/20245835Lhphuj03/17/2025Orders Only [facility] End[facility] [address] [place] [phone] Muna Michael, DEE Common bile duct dilation (Primary Dx)11/26/2024 7:34 PM EDT - 11/26/2024 9:45 PM EDTEmergency [facility] Emergency [address] [place] [phone] Israel Jeong MD Acute UTI (Primary Dx) Discharge Disposition: Home or Self Care ()11/26/20247067Hnfaey95/01/2025 7:56 PM EDT - 11/17/2024 2:42 PM EDTHospital Encounter [facility] [address] [place] [phone] Sandeep Casey MD Chest pain (Primary Dx) Discharge Disposition: Home-Health Care Svc ()11/15/20249259Rsjrfp52/25/2025 10:47 AM EDT - 11/13/2024 2:34 PM EDTHospital Encounter [facility] [address] [place] [phone] Urbano Santos MD Chang, Kyu Chul, MD Schwarz, Stephanie, DO Chest pain (Primary Dx); Chronic narcotic use Discharge Disposition: Home-Health Care Svc (06)11/09/20241244Gfiixw67/18/2025 8:45 PM EDTAnesthesia Event [facility] Main Operating Room [address] [place] [address] David Reyes MD 11/02/2024 8:45 PM EDT - 11/02/2024 11:15 PM EDTSurgery [facility] Main Operating Room [address] [place] [address] Jose Angel Fox MD EXPLORATION, HEMATOMA Right Groin11/02/2024 5:41 PM EDT - 11/02/2024 6:41 PM EDT Surgery [facility] [address] [place] [address] Wali Collins MD Coronary krmtzdsevcb91/17/2025 12:30 PM EDT - 11/01/2024 1:30 PM EDTSurgery [facility] [address] [place] [address] Mitchell Agustin MD Coronary qyjfunijgdj57/16/2025 1:30 PM EDT - 10/31/2024 2:30 PM EDTSurgery [facility] [address] [place] [phone] Tino Gilmore MD Coronary opuypkqnmmj49/15/2025 6:28 PM EDT - 11/07/2024 5:10 PM EDTHospital Encounter [facility] [address] [place] [phone] Sandeep Casey MD Spencer, Caleb T, MD Vicente, David, MD Mansur, Sarmed, MD Moukarbel, George, MD Hematoma (Primary Dx); Chest pain; NSTEMI (non-ST elevated myocardial infarction) (CMS/HCC); Spontaneous dissection of coronary artery; Gastroparesis; Gastroesophageal reflux disease without esophagitis Discharge Disposition: [place] [place] [facility] [place]10/30/2024Travelfrom Last 3 Months Family History Medical HistoryRelationNameCommentsNo Known ProblemsFatherNo Known Problems MotherRelationNameStatusCommentsFatherAliveMotherAlive Social History Tobacco UseTypesPacks/DayYears UsedDateSmoking Tobacco: NeverSmokeless Tobacco: Never Tobacco Cessation:Counseling Given: Not Answered Alcohol UseStandard Drinks/WeekCommentsNot Currently0 (1 standard drink = 0.6 oz pure alcohol)[facility] UtilitiesAnswerDate RecordedIn the past 12 months has the [place], gas, oil, or water [employer] threatened to shut off services in your home?Yes12/17/2024Overall Financial Resource Strain (CARDIA)AnswerDate Recorded How hard is it for you to pay for the very basics like food, housing, medical care, and heating?Not hard at all12/17/2024PHQ-2AnswerDate RecordedPatient Health Questionnaire-2 Ifclq80402/28/2024Humiliation, Afraid, Rape, and Kick questionnaireAnswerDate RecordedWithin the [...] homeless or living in a usp (including now)?No12/17/2024Hunger Vital SignAnswerDate RecordedWithin the past 12 months, you worried that your food would run out before you got the money to buymore.Never true12/17/2024Ran Out of Food in the Last YearNot on file 12/17/2024CommentsNoSex and Gender InformationValueDate RecordedSex Assigned at JstasPfpofr20/03/2025 3:45 PM EDTLegal NnrNmgofl10/30/2022 12:07 AM EDTGender NelzxyulDmwphd17/03/2025 3:45 PM EDTSexual OrientationHeterosexual or Onbnaxge09/03/2025 3:45 PM EDT Last Filed Vital Signs Vital SignReadingTime TakenCommentsBlood Nugxjani887/56102/28/2024 3:01 PM EST Jirld549412/28/2024 3:01 PM VXHUdqyoigzhkj55 ??C (98.6 ??F)12/28/2024 3:01 PM EST Respiratory Jhcg818302/21/2024 7:43 AM ESTOxygen Ilxkxkabgu71%12/21/2024 7:43 AM ESTInhaled Oxygen Concentration--Clzuvg17.9 kg (180 lb 9.6 oz)12/28/2024 3:01 PM VRHIbshzb214.6 cm (5' 6 )12/28/2024 3:01 PM ESTBody Mass Index29.15102/28/2024 3:01 PM EST Plan of Treatment DateTypeDepartmentCare Team (Latest Contact Info)Maionezainj36/03/2025 8:15 AM ESTAppointment [facility] [place] [phone] 01/23/2025 1:00 PM ESTClinical Support [facility] [place] [phone] 01/31/2025 11:00 AM ESTOffice Visit [facility] [address] [facility] [place] [address] [place] [address] 06/28/2025 1:15 PM EDTFollow-Up [facility] [place] [address] Donnie Cesar MD [address] [place] [phone] Health MaintenanceDue DateLast DoneCommentsDiabetes: Retinopathy Screening 1999Varicella Vaccines (1 of 2 - 13+ 2-dose series)2002Diabetes: Urine Protein Hizxbncrp81/17/2009Hepatitis B Vaccines (1 of 3 - 19+ 3-dose series)2008Pneumococcal Vaccine: Pediatrics (0 to 5 Years) and At-Risk Patients (6 to 64 Years) (1 of 2 - PCV)2008Zoster Vaccines (1 of 2) 2008HPV Vaccines (1 - Risk 3-dose SCDM series)2016HPV/Cotest 2019Cervical Cancer Pgwozoghh17/06/2024Pap Smear/1COVID- 19 Vaccine (3 - 2024- season)501/05/2021, 06/23/2020Influenza Vaccine (#1)509/, 11/16/2021, 01/01/2021, Additional history exists Diabetes: Hemoglobin A1C509/Depression Kiwquybnd83/13/2026 12/28/2024dult Brljehj34HIB VaccinesAged OutNo longer eligible based on patient's age to complete this topicIPV VaccinesAged OutNo longer eligible based on patient's age to complete this topicMeningococcal B VaccineAged OutNo longer eligible based on patient's age to complete this topic Meningococcal VaccineAged OutNo longer eligible based on patient's age to complete this topicRotavirus VaccinesAged OutNo longer eligible based on patient's age to complete this topic Procedures Procedure NamePriorityDate/TimeAssociated DiagnosisCommentsPOCT GLUCOSE METER UNSOLICITED YQSPPMVGaijweq26/06/2025 11:46 AM EST POCT GLUCOSE METER UNSOLICITED QIPBUSJYhxhodx87/06/2025 5:59 AM EST YNBEmjxqxm91/06/2025 5:11 AM EST BASIC METABOLIC HZZEIQxvgdmh57/06/2025 5:11 AM EST POCT GLUCOSE METER UNSOLICITED JKEXAATEeegzvv05/05/2025 11:27 PM EST POCT GLUCOSE METER UNSOLICITED FYDDOIGKfvhvom54/05/2025 5:[address] ABDOMEN PELVIS W IV EYFSGRCRUYJK51/05/2025 2:14 PM EST ECG 12-JGFNYCFL31/05/2025 12:22 PM EST POCT GLUCOSE METER UNSOLICITED DXSGEVRRsmzxnt94/05/2025 11:44 AM EST XR ABDOMEN 1 OCZFJTVY46/05/2025 10:26 AM EST LACTIC ACID WITH 4 HOUR BHNALHQYBW59/05/2025 10:20 AM EST RUFICBH3812/20/2024 10:20 AM EST IRON AND NTSLPnieegf04/05/2025 6:29 AM EST Anemia due to acute blood loss PHOSPHORUSAdd-On12/20/2024 6:29 AM EST JWAImhcumz52/05/2025 6:29 AM EST BASIC METABOLIC KYFBOZayhivj32/05/2025 6:29 AM EST POCT GLUCOSE METER UNSOLICITED UKRUCDFGshpjox54/05/2025 6:17 AM EST POCT GLUCOSE METER UNSOLICITED DMFCEQRMebsidv78/05/2025 12:05 AM EST POCT GLUCOSE METER UNSOLICITED TIIITFDWdncegs72/04/2025 5:57 PM EST FL SMALL BOWEL WTJETWGBVI05/04/2025 1:15 PM EST POCT GLUCOSE METER UNSOLICITED LSGBMCVZztaevh48/04/2025 11:09 AM EST PHOSPHORUSAdd-On12/19/2024 7:49 AM EST MAGNESIUMAdd-On12/19/2024 7:49 AM EST VHMIjiuisi15/04/2025 7:49 AM EST BASIC METABOLIC TKDAMUwwuqjl66/04/2025 7:49 AM EST POCT GLUCOSE METER UNSOLICITED GCSMSPOVubqzjd95/04/2025 6:34 AM EST POCT GLUCOSE METER UNSOLICITED JAPSKZISvdmjoa65/04/2025 12:06 AM EST CO AN ELECTIVE ENDOTRACHEAL WVSHNLPpkgvhh36/03/2025 7:16 PM EST REPAIR, HERNIA, UBLHNRTRURRL42/03/2025 7:08 PM EST Obstructed internal hernia LYSIS, CQFUOPJVW06/03/2025 7:08 PM EST Obstructed internal hernia CO LAPS ABD PRTM&OMENTUM DX W/WO SPEC BR/WA SPX102/18/2024 7:08 PM EST Obstructed internal hernia POCT GLUCOSE METER UNSOLICITED KKYEHKUQlzsujb19/03/2025 5:47 PM EST XR TRANSFER OF OUTSIDE SOQVIEttmucq83/03/2025 1:10 PM EST XR TRANSFER OF OUTSIDE LNAMWVztcfzn55/03/2025 1:10 PM EST XR TRANSFER OF OUTSIDE SHHRVUxbprvr43/03/2025 1:10 PM EST XR TRANSFER OF OUTSIDE DIXQPHtwvvis29/03/2025 1:[address] TRANSFER OF OUTSIDE LDTGSBbotfjq15/03/2025 1:[address] TRANSFER OF OUTSIDE WILHNGwyomkg64/03/2025 1:[address] TRANSFER OF OUTSIDE QCJJHKjrqgnr50/03/2025 1:[address] TRANSFER OF OUTSIDE PFWBGJwnxgta93/03/2025 1:[address] TRANSFER OF OUTSIDE JCGZEArppwfa77/03/2025 1:10 PM EST COMPREHENSIVE METABOLIC HVSPPSlthnvy21/02/2025 1:05 PM EST GQSMtkkyds86/02/2025 1:05 PM EST XR CHEST 1 TMKKFuhacya11/02/2025 12:58 PM EST EUS (UPPER) W/ WMXSdcfjaw58/30/2025 9:59 AM EDT Common bile duct dilatation HISTOLOGY - TISSUE RRYTAupxkrh44/30/2025 9:49 AM EDT Common bile duct dilatation CO AN ELECTIVE ENDOTRACHEAL HYUMBFPlrkluy15/30/2025 9:25 AM EDT POCT GLUCOSE METER UNSOLICITED JOTZMMYZvskyar09/30/2025 7:47 AM EDT HEPATIC FUNCTION IUKHRLvscqgn47/30/2025 7:40 AM EDT URINALYSIS MICROSCOPIC WITH REFLEX EVGPKIKDPPK73/12/2025 8:27 PM EDT SERUM LKZLOFMRFJJTFMS92/12/2025 8:27 PM EDT URINALYSIS WITH REFLEX DBCZGNIMIYN40/12/2025 8:27 PM EDT XR CHEST 1 PICYICAE71/12/2025 8:17 PM EDT ECG 12-JBLMMBPN73/12/2025 8:13 PM EDT CBC WITH AUTO BQWFPLYJPCOSJPAQ09/12/2025 8:05 PM EDT HIGH SENSITIVITY TROPONIN ISTAT1 8:05 PM EDT TIRCCCNGZS98/12/2025 8:05 PM EDT COMPREHENSIVE METABOLIC DBWHGMEGI34/12/2025 8:05 PM EDT CBC AND UCZOWCXTLWOKZRAZ29/12/2025 8:05 PM EDT HEPATIC FUNCTION PANELAdd-On11/17/2024 5:17 AM EDT MAGNESIUMPending Zalaxvzcx74/03/2025 5:17 AM EDT CBCPending Fuztkjoht25/03/2025 5:17 AM EDT BASIC METABOLIC PANELPending Yajtbdnaq65/03/2025 5:17 AM EDT MR ABDOMEN WO CONTRAST MVKZSSXB50/02/2025 8:32 PM EDT ECG 12-DVXZDnhnxpj64/02/2025 9:55 AM EDT HEPATIC FUNCTION PANELSTAT Add-on11/16/2024 5:36 AM EDT HIGH SENSITIVITY TROPONIN IAdd-On11/16/2024 5:36 AM EDT WCIOasynyl23/02/2025 5:36 AM EDT BASIC METABOLIC ATRYUVmgaotq01/02/2025 5:36 AM EDT XR CHEST 1 LLTRLbyejbs02/29/2025 12:51 PM EDT POCT GLUCOSE METER UNSOLICITED YQMWZAUStfhtcp25/29/2025 11:08 AM EDT HOME O2 EVAL (DESATURATION SCREEN)Ukytecr9811/13/2024 10:32 AM EDTHIGH SENSITIVITY TROPONIN IPending Rbhwymfmb59/29/2025 7:03 AM EDT BASIC METABOLIC PANELPending Nwxzdqdih82/29/2025 7:03 AM EDT CBCPending Sjquxdwrd01/29/2025 7:03 AM EDT POCT GLUCOSE METER UNSOLICITED ABGRMGKXxvdias56/29/2025 7:01 AM EDT HIGH SENSITIVITY TROPONIN IPending Zkkmdrhts54/29/2025 12:17 AM EDT POCT GLUCOSE METER UNSOLICITED LOWNVHZWyaxljy09/29/2025 12:16 AM EDT HIGH SENSITIVITY TROPONIN IPending Vhdbpdfnc82/28/2025 6:28 PM EDT POCT GLUCOSE METER UNSOLICITED PUMWHCDEkiqrnl84/28/2025 6:18 PM EDT ECG 12-APNMZbvcrxf46/28/2025 1:41 PM EDT HIGH SENSITIVITY TROPONIN ISTAT11/12/2024 1:34 PM EDT HIGH SENSITIVITY TROPONIN IPending Shjdqyccv37/28/2025 10:56 AM EDT POCT GLUCOSE METER UNSOLICITED JUNPLNOWyrsvsa54/28/2025 10:55 AM EDT HIGH SENSITIVITY TROPONIN IPending Tudfwlsyw89/28/2025 6:30 AM EDT BASIC METABOLIC PANELPending Wqvdhyyed43/28/2025 6:30 AM EDT CBCPending Atwfxmqfj24/28/2025 6:30 AM EDT POCT GLUCOSE METER UNSOLICITED YDHCCLZLoojrbn97/28/2025 6:27 AM EDT HIGH SENSITIVITY TROPONIN IPending Bgkopqolq36/28/2025 12:00 AM EDT POCT GLUCOSE METER UNSOLICITED XVYJAJBQkqczbt43/27/2025 11:56 PM EDT CTA CHEST W IV XRIHMDGYJOTL63/27/2025 8:55 PM EDT ECG 12-PRVKWKMG70/27/2025 6:15 PM EDT HIGH SENSITIVITY TROPONIN IPending Rzjpdimlv19/27/2025 6:14 PM EDT POCT GLUCOSE METER UNSOLICITED GVKZHLFRmftpip42/27/2025 5:16 PM EDT C-REACTIVE PROTEINPending Wtjeppzcp06/27/2025 3:29 PM EDT POCT GLUCOSE METER UNSOLICITED OIITUDAQhugyhj48/27/2025 12:49 PM EDT SEDIMENTATION RATEAdd-On11/11/2024 6:39 AM EDT BASIC METABOLIC PANELPending Kpgjwtcvt31/27/2025 6:39 AM EDT CBCPending Nzzucomgr35/27/2025 6:39 AM EDT POCT GLUCOSE METER UNSOLICITED YKVEWGKAiboilh64/27/2025 6:35 AM EDT POCT GLUCOSE METER UNSOLICITED BUTWEVHJfsbraj62/27/2025 12:55 AM EDT HIGH SENSITIVITY TROPONIN IPending Yteuvxeup65/26/2025 8:50 PM EDT POCT GLUCOSE METER UNSOLICITED LVJUXQONhohekx82/26/2025 6:24 PM EDT ECG 12-CKGDJJPT24/26/2025 3:11 PM EDT HIGH SENSITIVITY TROPONIN IPending Ndxbcpezz98/26/2025 2:22 PM EDT POCT GLUCOSE METER UNSOLICITED QJIAQHDTherbor63/26/2025 1:06 PM EDT LEXISCAN STRESS MYOCARDIAL PERFUSION JCMCIAOLitntmn04/26/2025 11:23 AM EDT XR CHEST 1 MMVMJhdoqnp52/26/2025 9:01 AM EDT ECG 12-PDJOLsfbwbw51/26/2025 8:09 AM EDT HIGH SENSITIVITY TROPONIN ISTAT11/10/2024 7:44 AM EDT POCT GLUCOSE METER UNSOLICITED BOSTHQDTgpzojw78/26/2025 7:39 AM EDT POCT GLUCOSE METER UNSOLICITED LALJAFYIrrmxbb23/25/2025 9:21 PM EDT POCT GLUCOSE METER UNSOLICITED YWHFFJOHxzlbhr28/25/2025 4:12 PM EDT CBC WITH AUTO YFVGYOMXFJEIJxjbvtj52/25/2025 2:09 PM EDT FCSEOQTEQQlnzzla22/25/2025 2:09 PM EDT CBC AND WYSTQFAJFMURXbfagso63/25/2025 2:09 PM EDT BASIC METABOLIC HIFYUCyphhqe81/25/2025 2:09 PM EDT HIGH SENSITIVITY TROPONIN YMvmhbwe48/25/2025 2:09 PM EDT ECG 12-AXQVErmmhjz03/25/2025 12:39 PM EDT POCT GLUCOSE METER UNSOLICITED EAKWVSIHaodknl54/23/2025 4:00 PM EDT POCT GLUCOSE METER UNSOLICITED PETVBMZFzvnzgm18/23/2025 11:55 AM EDT ECG 12-EPUVOgklzsu19/23/2025 11:48 AM EDT POCT GLUCOSE METER UNSOLICITED QQZFNBSEyhgzsr89/23/2025 7:43 AM EDT SCCAFXD5811/07/2024 6:27 AM EDT HIGH SENSITIVITY TROPONIN ISTAT Add-on11/07/2024 4:50 AM EDT CALCIUM, SHOOWZHEvbxrsb90/23/2025 4:50 AM EDT THVNJAJMABFotsmvd59/23/2025 4:50 AM EDT IAIJIWPIPUqhxbxc32/23/2025 4:50 AM EDT BASIC METABOLIC SEVSRDkogboi96/23/2025 4:50 AM EDT POCT GLUCOSE METER UNSOLICITED CPPCKIUSgfouot14/22/2025 10:59 PM EDT POCT GLUCOSE METER UNSOLICITED FAWYWGTHbpxsuh00/22/2025 8:22 PM EDT POCT GLUCOSE METER UNSOLICITED GOLMHMBKynoyfv96/22/2025 5:05 PM EDT CALCIUM, IONIZEDPending Diewxptyg10/22/2025 12:24 PM EDT POCT GLUCOSE METER UNSOLICITED XHWCXGPNsgngkg23/22/2025 12:19 PM EDT VASC US LOWER EXTREMITY PSEUDOANEURYSM DUPLEX WJKGTFfxtgeh69/22/2025 8:24 AM EDT POCT GLUCOSE METER UNSOLICITED ZBNXLNEOhsuref34/22/2025 7:52 AM EDT CBC WITH AUTO DIFFERENTIALPending Qlszczmrj04/22/2025 5:50 AM EDT CBC AND QLIKUXGIUNWKDdfadto46/22/2025 5:50 AM EDT PHOSPHORUSPending Pjbvtixok62/22/2025 5:50 AM EDT MAGNESIUMPending Udsxnpynh27/22/2025 5:50 AM EDT BASIC METABOLIC PANELPending Cefevkycy53/22/2025 5:50 AM EDT POCT GLUCOSE METER UNSOLICITED VBNGPSGCapgmra90/21/2025 10:07 PM EDT POCT GLUCOSE METER UNSOLICITED NMQGBMSVuarzit19/21/2025 4:37 PM EDT POCT GLUCOSE METER UNSOLICITED EUEZTUMDxjvbyx17/21/2025 11:36 AM EDT HEMOGLOBIN AND HEMATOCRIT, BLOODPending Bntslkadp94/21/2025 9:01 AM EDT POCT GLUCOSE METER UNSOLICITED IVVPUVUJwxjneg95/21/2025 8:36 AM EDT CBCPending Rylkseuro51/21/2025 3:48 AM EDT PHOSPHORUSPending Idgaqqqsv15/21/2025 3:48 AM EDT MAGNESIUMPending Xvwilnhtp07/21/2025 3:48 AM EDT BASIC METABOLIC PANELPending Svqrvardc24/21/2025 3:48 AM EDT CALCIUM, IONIZEDPending Qrwyurash96/21/2025 1:00 AM EDT HEMOGLOBIN AND HEMATOCRIT, BLOODPending Kmvdtarws93/21/2025 12:54 AM EDT POCT GLUCOSE METER UNSOLICITED VWOWHZENfcypdo31/20/2025 10:33 PM EDT BASIC METABOLIC PANELSTAT Add-on11/04/2024 8:17 PM EDT HEMOGLOBIN AND HEMATOCRIT, BLOODPending Pajbrethq60/20/2025 8:13 PM EDT POCT GLUCOSE METER UNSOLICITED VTLIJBGWijapyw80/20/2025 5:12 PM EDT TRANSFUSE RED BLOOD LTOZCFjyzhrp95/20/2025 2:34 PM EDTECG 12-IQMDEOCC24/20/2025 1:59 PM EDT HEMOGLOBIN AND HEMATOCRIT, BLOODPending Yamysknmj83/20/2025 1:38 PM EDT BASIC METABOLIC QNOAVQPQZ20/20/2025 1:38 PM EDT HIGH SENSITIVITY TROPONIN ISTAT11/04/2024 1:38 PM EDT POCT GLUCOSE METER UNSOLICITED UDNWEIEYqfxrsc56/20/2025 1:06 PM EDT CTA ABDOMEN PELVIS W IV JOGMKNSIVodqdqo68/20/2025 12:48 PM EDT POCT GLUCOSE METER UNSOLICITED ZJNHSWJVgjwegf12/20/2025 9:20 AM EDT POCT GLUCOSE METER UNSOLICITED RFVKHWSUsupnba33/20/2025 5:10 AM EDT CBCPending Rqnwkmaxr92/20/2025 5:05 AM EDT CALCIUM, IONIZEDPending Bezdydgqh76/20/2025 5:05 AM EDT PHOSPHORUSPending Crkqnejas84/20/2025 5:05 AM EDT MAGNESIUMPending Aznwexvge54/20/2025 5:05 AM EDT BASIC METABOLIC PANELPending Ahxbmfujy32/20/2025 5:05 AM EDT POCT GLUCOSE METER UNSOLICITED TQHXDJSPthxrag12/20/2025 12:12 AM EDT HEMOGLOBIN AND HEMATOCRIT, BLOODPending Odwnnxvia85/20/2025 12:09 AM EDT POCT GLUCOSE METER UNSOLICITED PNCWBILFdersmg80/19/2025 9:52 PM EDT HEMOGLOBIN AND HEMATOCRIT, BLOODPending Ugloduwly63/19/2025 6:34 PM EDT POCT GLUCOSE METER UNSOLICITED QWXWJPBHbsmayy87/19/2025 5:35 PM EDT CBCPending Jyudmpqpm21/19/2025 1:23 PM EDT POCT GLUCOSE METER UNSOLICITED KMYCHOCWnfolyu10/19/2025 11:35 AM EDT POCT GLUCOSE METER UNSOLICITED AZIHCFOEmxhcua94/19/2025 7:46 AM EDT CBCPending Xxepghfyn66/19/2025 4:46 AM EDT CALCIUM, IONIZEDPending Rgeyfznlk08/19/2025 4:46 AM EDT PHOSPHORUSPending Zwqqavqqa84/19/2025 4:46 AM EDT MAGNESIUMPending Wnmcaiiws51/19/2025 4:46 AM EDT BASIC METABOLIC PANELPending Xapifclqm98/19/2025 4:46 AM EDT INTEM JZepeqnf16/19/2025 1:58 AM EDT HEPTEM ZXuqbqmh52/19/2025 1:58 AM EDT EXTEM JMwfebgn58/19/2025 1:58 AM EDT FIBTEM NMxqcear86/19/2025 1:58 AM EDT XZCWGOY7511/03/2024 12:07 AM EDT QJWHNCKQZILRLQ70/19/2025 12:07 AM EDT OZFKHXJCKRGFQ22/19/2025 12:07 AM EDT BASIC METABOLIC KGHPJDDPA84/19/2025 12:07 AM EDT KLREPMJBBFYWCX15/19/2025 12:07 AM EDT PROTIME-OFDVILJ4711/03/2024 12:07 AM EDT POCT GLUCOSE METER UNSOLICITED PJNLXWFIxreoea64/18/2025 10:48 PM EDT TRANSFUSE RED BLOOD XYYXGEwpbiud40/18/2025 9:30 PM EDTTRANSFUSE RED BLOOD CELLS Hzrznqr4111/02/2024 9:10 PM EDTPR AN ELECTIVE ENDOTRACHEAL DBWILOUpgtdck53/18/2025 8:56 PM EDT REPAIR, ARVROZZCWGMGMA76/18/2025 8:44 PM EDT Hematoma Right Groin EXPLORATION, ITEPXRLA14/18/2025 8:44 PM EDT Hematoma Right Groin POCT GLUCOSE METER UNSOLICITED CRQRKYAWptlixv27/18/2025 8:30 PM EDT PREPARE PPOWosakcr19/18/2025 8:05 PM EDT PREPARE EYWMwmnlqe75/18/2025 8:05 PM EDT TYPE AND SCREENPending Mytoovydq46/18/2025 8:02 PM EDT CBCPending Dxrtrownh24/18/2025 8:02 PM EDT RED SAOSjkjtnc68/18/2025 8:00 PM EDT EXTRA JJBUJGwabrig21/18/2025 8:00 PM EDT ACTIVATED CLOTTING INLEDknezik71/18/2025 4:43 PM EDT POCT ACTIVATED CLOTTING OECUYicooan60/18/2025 4:40 PM EDT POCT ACTIVATED CLOTTING SPHNLninlsi13/18/2025 4:19 PM EDT ACTIVATED CLOTTING DCNGBnrkgkf79/18/2025 4:13 PM EDT ACTIVATED CLOTTING NZHWIthzviu84/18/2025 2:56 PM EDT INSTANT WAVE FREE RATIO (IFR)Mcrdosq1711/02/2024 2:53 PM EDT Spontaneous dissection of coronary artery ULTRASOUND - LAIHDDDHTgyvslu32/18/2025 2:53 PM EDT Spontaneous dissection of coronary artery CORONARY DTVQVFOVCNTDflzcxt06/18/2025 2:53 PM EDT Spontaneous dissection of coronary artery ACTIVATED CLOTTING HQSBChxstxd71/18/2025 2:24 PM EDT ECG 12-UUKCIQQC67/18/2025 1:18 PM EDT HIGH SENSITIVITY TROPONIN ISTAT11/02/2024 1:01 PM EDT POCT GLUCOSE METER UNSOLICITED HHZSWNSUtknndy61/18/2025 11:07 AM EDT POCT GLUCOSE METER UNSOLICITED PZJWJNNKgoeakn21/18/2025 7:31 AM EDT LIGHT GREEN SQOSmnfcmd57/18/2025 6:15 AM EDT EXTRA AHSZJBdetpsn95/18/2025 6:15 AM EDT CBCPending Iespifzwx38/18/2025 6:15 AM EDT POCT GLUCOSE METER UNSOLICITED AVRXPJWXtuwkga01/17/2025 8:42 PM EDT POCT GLUCOSE METER UNSOLICITED WUQMQHVWfbcnmr06/17/2025 6:04 PM EDT ACTIVATED CLOTTING CBDXNaqafdz55/17/2025 4:36 PM EDT POCT ACTIVATED CLOTTING ZQSTAvcmjjo64/17/2025 4:33 PM EDT ULTRASOUND - XPRLGLYBOdhuogw07/17/2025 1:30 PM EDT NSTEMI (non-ST elevated myocardial infarction) (CMS/HCC) CORONARY LRJQWDPMJUSVacpjeo30/17/2025 1:30 PM EDT NSTEMI (non-ST elevated myocardial infarction) (CMS/HCC) ACTIVATED CLOTTING LMKKNsiekhz10/17/2025 1:27 PM EDT ACTIVATED CLOTTING FXGFYdagwmy89/17/2025 1:14 PM EDT ECG 12-WHMWAlnfges54/17/2025 12:09 PM EDT POCT GLUCOSE METER UNSOLICITED XIPOILWUfcmyix16/17/2025 11:30 AM EDT BASIC METABOLIC PANELPending Bkvdrfdbw23/17/2025 10:10 AM EDT CAMTOCO6011/01/2024 10:10 AM EDT POCT GLUCOSE METER UNSOLICITED CSQDSBNDktwnbi24/17/2025 7:43 AM EDT HIGH SENSITIVITY TROPONIN LZcyvq9911/01/2024 6:42 AM EDT ANTI-FACTOR XAPending Nudptaszi96/17/2025 6:04 AM EDT POCT GLUCOSE METER UNSOLICITED DNHNPQSTyseame97/17/2025 6:02 AM EDT TOXICOLOGY PANEL WVOYGElyldhu79/17/2025 2:12 AM EDT POCT GLUCOSE METER UNSOLICITED DEHYBIYJxiygjn49/16/2025 8:20 PM EDT LEFT HEART BECVHdskrqk42/16/2025 7:34 PM EDT NSTEMI (non-ST elevated myocardial infarction) (CMS/HCC) CORONARY LCNVFCWOTVIDeyknnx12/16/2025 7:34 PM EDT NSTEMI (non-ST elevated myocardial infarction) (CMS/HCC) POCT GLUCOSE METER UNSOLICITED VXGKFDSOpsehni33/16/2025 11:55 AM EDT LIMITED ECHO (TTE) W/ COLOR FLOW AND IMAGING DWVHQHzailpr38/16/2025 11:40 AM EDT ECG 12-HHIDTxrdklr14/16/2025 8:47 AM EDT ECG 12-GTJOIiznxxj86/16/2025 8:25 AM EDT POCT GLUCOSE METER UNSOLICITED DLCYXXYUcrcirs53/16/2025 7:22 AM EDT HEMOGLOBIN V2MNro-Eq35/16/2025 6:27 AM EDT LIPID PANELAdd-10/31/2024 6:27 AM EDT MAGNESIUMAdd-On10/31/2024 6:27 AM EDT ANTI-FACTOR HUAtgiprs14/16/2025 6:27 AM EDT ISMJooneta02/16/2025 6:27 AM EDT BASIC METABOLIC VOJDXPhpnpoj54/16/2025 6:27 AM EDT HIGH SENSITIVITY TROPONIN ALrgsx7110/31/2024 6:27 AM EDT ANTI-FACTOR YYZtskdgk20/16/2025 1:38 AM EDT HIGH SENSITIVITY TROPONIN PTxfxc3910/31/2024 1:38 AM EDT POCT GLUCOSE METER UNSOLICITED KTIBBMEGetaiof23/15/2025 9:12 PM EDT ECG 12-AICYVRYA64/15/2025 8:00 PM EDT ANTI-FACTOR XASTAT Add-on10/30/2024 7:11 PM EDT JOIHOYNS86/15/2025 7:11 PM EDT TSH3 REFLEX TO SZ1DVNY8310/30/2024 7:11 PM EDT CBC WITH AUTO JKEFWQBWYRKMZVGT63/15/2025 7:11 PM EDT B-TYPE NATRIURETIC RYJXJHWVEHP13/15/2025 7:11 PM EDT CBC AND HBJLZVDZJTEVKEVJ94/15/2025 7:11 PM EDT PROTIME-OBDLZVD9910/30/2024 7:11 PM EDT QRYNJKXTIJKHOU73/15/2025 7:11 PM EDT HIGH SENSITIVITY TROPONIN ISTAT10/30/2024 7:11 PM EDT VAOKNAENDZJQT04/15/2025 7:11 PM EDT COMPREHENSIVE METABOLIC XVBVGVDMN70/15/2025 7:11 PM EDT from Last 3 Months Results * POCT glucose meter (12/21/2024 11:46 AM EST) Only the most recent of64 resultswithin the time period is included. ComponentValueRef RangeTest MethodAnalysis TimePerformed AtPathologist Signature Glucose [id number] - 105 mg/dL12/21/2024 12:16 PM [facility] ([place]) Comment:elacumskySpecimen (Source)Anatomical Location / LateralityCollection Method / VolumeCollection TimeReceived TimeBloodCapillary blood specimen / Jycurck7012/21/2024 11:46 AM EST11/07/2024 12:16 PM EST Narrative [facility] ([place]) - 12/21/2024 12:16 PM EST Waived Testing in the ED is performed under the ED CLIA certificate #[id number]. Authorizing ProviderResult TypeResult StatusMallory Tyler ROBLERO BLOOD ORDERABLESFinal ResultPerforming OrganizationAddressCity/State/ZIP CodePhone Number [facility] ([facility]) [address] [place] [address] * (ABNORMAL) CBC (12/21/2024 5:11 AM EST) Only the most recent of20 resultswithin the time period is included. ComponentValueRef RangeTest MethodAnalysis TimePerformed AtPathologist Signature Auto WBC2.92(L)4.00 - 10.60 10*3/uL12/21/2024 5:49 AM [facility] ([facility])RBC3.19(L)3.80 - 5.00 10*6/uL12/21/2024 5:49 AM [facility] ([facility])Hemoglobin9.5(L)12.0 - 15.0 g/dL12/21/2024 5:49 AM [facility] ([facility])Fxzbuhrgsu18.7(L)36.0 - 45.0 %12/21/2024 5:49 AM [facility] ([facility])MCV90.082.0 - 98.0 fL12/21/2024 5:49 AM [facility] ([facility])MCH 29.827.0 - 33.0 pg12/21/2024 5:49 AM [facility] ([facility])MCHC33.132.0 - 35.0 g/dL12/21/2024 5:49 AM [facility] ([facility])RDW15.5(H)11.5 - 15.0 % 12/21/2024 5:49 AM [facility] ([facility])Xhqoivotl010419 - 400 10*3/uL 12/21/2024 5:49 AM [facility] ([facility])Specimen (Source)Anatomical Location / LateralityCollection Method / VolumeCollection TimeReceived TimeBlood Venous blood specimen / UnknownExisting Catheter / Bzecowa2612/21/2024 5:11 AM EST 12/21/2024 5:34 AM EST Narrative Authorizing ProviderResult TypeResult StatusDajermaine ROBLERO BLOOD ORDERABLES Final ResultPerforming OrganizationAddressCity/State/ZIP CodePhone Number [facility] ([facility]) [address] [place] [address] * (ABNORMAL) Basic metabolic panel (12/21/2024 5:11 AM EST) Only the most recent of19 resultswithin the time period is included. ComponentValueRef RangeTest MethodAnalysis TimePerformed AtPathologist Signature Afbccr643503 - 145 mmol/L102/21/2024 6:20 AM [facility] ([facility]) Potassium3.93.5 - 5.1 mmol/L102/21/2024 6:20 AM [facility] ([facility]) Obbrbopt32148 - 107 mmol/L102/21/2024 6:20 AM [facility] ([facility])CO228 21 - 31 mmol/L102/21/2024 6:20 AM [facility] ([facility])GQB608 - 25 mg/dL 12/21/2024 6:20 AM [facility] ([facility])Creatinine0.55(L)0.60 - 1.20 mg/dL12/21/2024 6:20 AM [facility] ([facility])Ksogere543(H)70 - 100 mg/dL 12/21/2024 6:20 AM [facility] ([facility])Calcium8.0(L)8.6 - 10.3 mg/dL 12/21/2024 6:20 AM [facility] ([facility])Anion Eqb071 - 20 mmol/L 12/21/2024 6:20 AM [facility] ([facility])dXBH524.5>60.0 mL/min/1.73m*2 12/21/2024 6:20 AM [facility] ([facility])Comment:[facility]???s estimated glomerular filtration rate (eGFR) will [...] group of individuals. BUN/Creatinine Ratio21.8102/21/2024 6:20 AM [facility] ([place])Specimen (Source)Anatomical Location / LateralityCollection Method / VolumeCollection TimeReceived TimeBloodVenous blood specimen / UnknownExisting Catheter / Unknown 12/21/2024 5:11 AM EST12/21/2024 5:34 AM EST Narrative Authorizing ProviderResult TypeResult StatusDalun Nile ROBLERO BLOOD ORDERABLES Final ResultPerforming OrganizationAddressCity/State/ZIP CodePhone Number [facility] ([place]) [address] [place] [address] * CT abdomen pelvis w IV contrast [...] Rai Crespo. Authorizing ProviderResult TypeResult StatusJamie Km [facility] CT PROCEDURES Final Result * ECG 12 lead (12/20/2024 12:22 PM EST) Only the most recent of15 resultswithin the time period is included. ComponentValueRef RangeTest MethodAnalysis TimePerformed AtPathologist Signature Ventricular Zpjl74TBNHE MUSEAtrial Qkry28ELDBN MUSEPR Ybhvcqub274ueAY MUSEQRS SSXLVQLK76ecQD MUSEQT Vnbbfqub763lyWY MUSEQTC CALCULATION(BAZETT)472msGE MUSEP Mlqg67cogsufkWM MUSER-Baqi33braykpfPH MUSET Wave Qycm70plzjxqqOH MUSESpecimen (Source)Anatomical Location / LateralityCollection Method / [...] Normal ECG When compared with ECG of 12-OCT-2025 19:52, No significant change was found Confirmed [...] signed: Beltran Brian MD. Authorizing ProviderResult TypeResult StatusJamicatina Barbour PA-[facility] XR PROCEDURES Final Result * Lactic acid with 4 hour reflex (12/20/2024 10:20 AM EST)ComponentValueRef RangeTest MethodAnalysis TimePerformed AtPathologist SignatureLactate1.60.5 - 2.2 mmol/L102/20/2024 11:16 AM [facility] ([place])Specimen (Source) Anatomical Location / LateralityCollection Method / VolumeCollection Time Received TimeBloodVenous blood specimen / UnknownExisting Catheter / Unknown 12/20/2024 10:20 AM EST12/20/2024 10:31 AM EST Narrative Authorizing ProviderResult TypeResult StatusJamie Km PA-CLAB BLOOD ORDERABLESFinal ResultPerforming OrganizationAddressCity/State/ZIP CodePhone Number [facility] ([facility]) [address] [place] [address] * Iron and TIBC (12/20/2024 6:29 AM EST)ComponentValueRef RangeTest Method Analysis TimePerformed AtPathologist GuahywjocVvbb5616 - 212 ug/dL12/20/2024 9:44 AM [facility])OSOE411293 - 450 ug/dL12/20/2024 9:44 AM [facility])Iron Amnaiywjgw6279 - 50 %12/20/2024 9:[address] [facility])VEAV565.0155.0 - 355.0 ug/dL12/20/2024 9:44 AM EST [facility])Specimen (Source)Anatomical Location / Laterality Collection Method / VolumeCollection TimeReceived TimeBloodVenous blood specimen / UnknownExisting Catheter / Cepnzep9012/20/2024 6:29 AM EST12/20/2024 6:29 AM EST Narrative Authorizing ProviderResult TypeResult StatusChrainer ROBLERO BLOOD ORDERABLESFinal ResultPerforming OrganizationAddressCity/State/ZIP CodePhone Number [facility] ([facility]) [address] [place] [address] * Phosphorus (12/20/2024 6:29 AM EST) Only the most recent of9 resultswithin the time period is included. ComponentValueRef RangeTest MethodAnalysis TimePerformed AtPathologist Signature Phosphorus2.72.5 - 5.0 mg/dL12/20/2024 6:59 AM [facility]) Specimen (Source)Anatomical Location / LateralityCollection Method / Volume Collection TimeReceived TimeBloodVenous blood specimen / UnknownExisting Catheter / Iirycpp7412/20/2024 6:29 AM EST12/20/2024 6:29 AM EST Narrative Authorizing ProviderResult TypeResult StatusBenja ROBLERO BLOOD ORDERABLES Final ResultPerforming OrganizationAddressCity/State/ZIP CodePhone Number [facility] ([place]) [address] [place] [address] * FL small bowel series (12/19/2024 1:15 [...] from internal hernia repair Comparison: None. Findings: Sales Operations Specialist image demonstrates enteric catheter tip in the stomach with a nonspecific bowel gas pattern. There is contrast seen within the colon at 4 hours compatible with no high-grade or complete small bowel obstruction. Procedure Note Ty Meyer MD - 12/19/2024 Report Study: FL SMALL BOWEL SERIES Sign And Symptoms:Abdominal pain. Bowel obstruction. . post op frominternal hernia repair Comparison: None. Findings: Sales Operations Specialist image demonstrates enteric catheter tip in the stomach with anonspecific bowel gas pattern. There is contrast seen within the colon at 4 hourscompatible with no high-grade or complete small bowel obstruction. IMPRESSION: Impression: *Contrast seen in the colon at 4 hours compatible with no high-grade or complete small bowel obstruction. Electronically signed: Ty Meyer. Authorizing ProviderResult TypeResult StatusDalun Nile CALVILLO FLUOROSCOPY PROCEDURESFinal Result * Magnesium (12/19/2024 7:49 AM EST) Only the most recent of11 resultswithin the time period is included. ComponentValueRef RangeTest MethodAnalysis TimePerformed AtPathologist Signature Magnesium2.01.9 - 2.7 mg/dL12/19/2024 9:55 AM [facility] ([place]) Specimen (Source)Anatomical Location / LateralityCollection Method / Volume Collection TimeReceived TimeBloodVenous blood specimen / UnknownExisting Catheter / Cylutwi5512/19/2024 7:49 AM EST12/19/2024 8:14 AM EST Narrative Authorizing ProviderResult TypeResult StatusBenja Dowd MDLAB BLOOD ORDERABLES Final ResultPerforming OrganizationAddressCity/State/ZIP CodePhone Number [facility] ([place]) [place] [address] * [place] AN ELECTIVE ENDOTRACHEAL AIRWAY (12/18/2024 7:16 PM EST) Narrative Ayanna Mims CAA - 12/18/2024 7:16 PM EST OR[place]O Jones 12/18/2024 7:24 PM Airway Date/Time: 12/18/2024 7:16 PM Reason: elective Airway not difficult General Information and Staff Patient location during procedure: [place] Anesthesiologist: Josue Walters MD Resident/SENIOR FACILITIES MANAGER/CAA: ORLANDO Jones Performed: resident/SENIOR FACILITIES MANAGER/CAA Patient Condition Indications for airway management: anesthesia [...] included. ComponentValueRef RangeTest MethodAnalysis TimePerformed AtPathologist Signature [id number] - 145 mmol/L102/17/2024 1:29 PM [facility] ([facility]) Potassium3.0(L)3.5 - 5.1 mmol/L102/17/2024 1:29 PM [facility] ([facility]) Uobrwccy690(H)98 - 107 mmol/L102/17/2024 1:29 PM [facility] ([facility])CO2 2321 - 31 mmol/L102/17/2024 1:29 PM [facility] ([facility])Anion Gap97 - 20 mmol/L102/17/2024 1:29 PM [facility] ([facility])NDK526 - 25 mg/dL 12/17/2024 1:29 PM [facility] ([facility])Creatinine0.59(L)0.60 - 1.20 mg/dL12/17/2024 1:29 PM [facility] ([facility])BUN/Creatinine Ratio22.0 12/17/2024 1:29 PM [facility] ([facility])Wnynbxx9412 - 100 mg/dL 12/17/2024 1:29 PM [facility] ([facility])Calcium7.8(L)8.6 - 10.3 mg/dL 12/17/2024 1:29 PM [facility] ([facility])VUX8899 - 39 U/L102/17/2024 1:29 PM [facility] ([facility])ALT (SGPT)157 - 52 U/L102/17/2024 1:29 PM [facility] ([facility])Alkaline Fxeqcvjqess5038 - 104 U/L102/17/2024 1:[address] [facility] ([facility])Total Protein5.4(L)6.0 - 8.3 g/dL12/17/2024 1:29 PM [facility] ([facility])Albumin3.4(L)3.5 - 5.7 g/dL12/17/2024 1:[address] [facility] ([facility])Total Bilirubin0.40.3 - 1.0 mg/dL12/17/2024 1:29 PM [facility] ([facility])jJSC233.5>60.0 mL/min/1.73m* 1:29 PM EST [facility] [facility] ([facility])Comment:[facility]???s estimated glomerular filtration rate (eGFR) will [...] ROBLERO BLOOD ORDERABLESFinal ResultPerforming OrganizationAddressCity/State/ZIP CodePhone Number [facility] ([facility]) [address] [place] [address] * XR chest 1 view (12/17/2024 12:58 [...] Rai Crespo. Authorizing ProviderResult TypeResult StatusMallorkatarina Scott MDIMG XR PROCEDURES Final Result * EUS (Upper) [...] balloon dilation up to 20 mm at [facility] that was performed in September [...] MethodAnalysis TimePerformed AtPathologist SignatureCase ReportSurgical Pathology ?Case: [id number] ? Authorizing Provider: ??Braxton Bellamy MD ? Collected: ? 12/14/2024 0949 ? Ordering Location: ? [facility] Nobleaac Minimally ? Received: ?12/15/2024 0826 ? [facility] ? Endoscopy ? Pathologist: ? Pete Bolanos MD ? Specimen: ?Gastric, gastric Bx to r/o H-Pylori ? 12/19/2024 3:[address] [facility])Final DiagnosisStomach, biopsy: Gastric mucosa with focal erosion. No Helicobacter pylori identified, immunohistochemical stain with control. No intestinal metaplasia, dysplasia or malignancy identified.12/19/2024 3:[address] [facility]) at 1529 ESTClinical InformationOrder Diagnoses K83.8 - Common bile duct dilatation [ICD-10-CM] 12/19/2024 3:29 PM [facility] ([facility])Gross DescriptionA. Gastric. Received in formalin labeled Juan Garcia, Gastric BX to R/O H- pylori, handwritten: G are five renner ragged mucosal bits, 0.1 to 0.3 cm. The specimen is filtered and entirely submitted in a single cassette. Sabina Seay, Pathologists' Coxqypvdg36/04/2025 3:29 PM [facility] ([facility])Microscopic DescriptionMicroscopic examination performed.12/19/2024 3:29 PM [facility] ([facility])DisclaimerThe interpretation of this case included [...] Laboratory Improvement Amendments of 1998.12/19/2024 3:29 PM [facility] ([facility])Specimen (Source)Anatomical Location / Laterality Collection Method / VolumeCollection TimeReceived TimeBiopsy (Gastric)12/14/2024 9:49 AM EDT1 8:26 AM EDT Narrative Authorizing ProviderResult TypeResult StatusAli Nawras ANNIKA PATHOLOGY ORDERABLESFinal ResultPerforming OrganizationAddressCity/State/ZIP CodePhone Number [facility] ([facility]) [address] [place] [address] * CO AN ELECTIVE ENDOTRACHEAL AIRWAY (12/14/2024 9:25 AM EDT) Narrative Olga Abdullahi CAA - 12/14/2024 9:25 AM EDT [place] Restrepo 12/14/2024 9:33 AM Airway Date/Time: 12/14/2024 9:25 AM Reason: elective Airway not difficult General Information and Staff Patient location during procedure: [place] Anesthesiologist: Sergei Randall MD Resident/SENIOR FACILITIES MANAGER/CAA: [place] Restrepo Performed: resident/SENIOR FACILITIES MANAGER/CAA Patient Condition Indications for airway management: anesthesia [...] ProviderResult TypeResult StatusSergei Randall MDANESTHESIA ORDERABLESFinal Result * Hepatic function panel (12/14/2024 7:40 AM EDT) Only the most recent of3 resultswithin the time period is included. ComponentValueRef RangeTest MethodAnalysis TimePerformed AtPathologist Signature Total Bilirubin0.30.3 - 1.0 mg/dL12/14/2024 8:26 AM [facility] ([facility])Bilirubin, Direct0.10 - 0.2 mg/dL12/14/2024 8:26 AM [facility] ([facility])Alkaline Sxtsgvevakv8605 - 104 U/L1 8:26 AM [facility] ([facility])JNC9808 - 39 U/L1 8:26 AM [facility] ([facility])ALT (SGPT)147 - 52 U/L1 8:26 AM [facility] ([facility])Total Protein 6.26.0 - 8.3 g/dL12/14/2024 8:26 AM [facility] ([facility])Albumin3.83.5 - 5.7 g/dL12/14/2024 8:26 AM [facility] ([facility])Specimen (Source) Anatomical Location / LateralityCollection Method / VolumeCollection Time Received TimeBloodVenous blood specimen / UnknownExisting Catheter / Unknown 12/14/2024 7:40 AM EDT1 7:49 AM EDT Narrative Authorizing ProviderResult TypeResult StatusKarmen ROBLERO BLOOD ORDERABLESFinal ResultPerforming OrganizationAddressCity/State/ZIP CodePhone Number [facility]) [address] [place] [address] * Urinalysis microscopic with reflex culture (11/26/2024 8:27 PM EDT)Component ValueRef RangeTest MethodAnalysis TimePerformed AtPathologist SignatureRBC, Urine0-2None Seen, 0-2 /HPF11/26/2024 8:52 PM [facility] ([facility]) WBC, Urine0-2None Seen, 0-2 /HPF11/26/2024 8:52 PM [facility] ([facility])Squamous Epithelial, UrineNone SeenNone Seen, Occasional, Few /LPF 11/26/2024 8:52 PM [facility] ([facility])Mucus, UrineOccasionalNone Seen, Occasional, Few /LP11/26/2024 8:52 PM [facility] ([facility]) Specimen (Source)Anatomical Location / LateralityCollection Method / Volume Collection TimeReceived TimeUrineUrine specimen obtained by clean catch procedure / UnknownNon-blood Collection / Kbghrth7111/26/2024 8:27 PM EDT 11/26/2024 8:33 PM EDT Narrative Authorizing ProviderResult TypeResult StatusDustin Jean-Paul ROBLERO URINE ORDERABLES Final ResultPerforming OrganizationAddressCity/State/ZIP CodePhone Number [facility] ([facility]) [address] [place] [address] * (ABNORMAL) Urinalysis with reflex culture (11/26/2024 8:27 PM EDT)Component ValueRef RangeTest MethodAnalysis TimePerformed AtPathologist SignatureColor, UrineDark-Yellow(A)Colorless, Yellow, Light-Csiguh8911/26/2024 8:52 PM [facility] ([facility])Clarity, MnjkxTyyfoJrtrq79/12/2025 8:52 PM [facility] ([facility])pH, Urine7.05.0 - 8.0 pH11/26/2024 8:52 PM [facility] ([facility])Leukocytes, UrineTrace(A)Bynuiogc70/12/2025 8:[address] [facility] ([facility])Nitrite, UrinePositive(A)Eqwkgpsk60/12/2025 8:52 PM [facility] ([facility])Protein, UrineNegativeNegative mg/dL11/26/2024 8:52 PM [facility] ([facility])Glucose, UrineNormalNormal mg/dL 11/26/2024 8:52 PM [facility] ([facility])Bilirubin, UrineSmall(A) Tytkfrds09/12/2025 8:52 PM [facility] ([facility])Specific [place], Urine1.0181.010 - 1.2428511/26/2024 8:52 PM [facility] ([facility]) Ketones, UrineNegativeNegative mg/dL11/26/2024 8:52 PM [facility] ([facility])Blood, SiqjqXwgloiebOidqycin23/12/2025 8:52 PM [facility] ([facility])Urobilinogen, Urine4.0(A)Normal mg/dL11/26/2024 8:52 PM [facility] ([facility])Specimen (Source)Anatomical Location / Laterality Collection Method / VolumeCollection TimeReceived TimeUrineUrine specimen obtained by clean catch procedure / UnknownNon-blood Collection / Unknown 11/26/2024 8:27 PM EDT1 8:33 PM EDT Narrative Authorizing ProviderResult TypeResult StatusDustin Jean-Paul ANNIKA URINE ORDERABLES Final ResultPerforming OrganizationAddressCity/State/ZIP CodePhone Number [facility] ([facility]) [address] [place] [address] * Serum Qualitative (11/26/2024 8:27 PM EDT)ComponentValueRef Range Test MethodAnalysis TimePerformed AtPathologist SignaturehCG, SerumNegative 11/26/2024 8:51 PM [facility] ([facility])Specimen (Source)Anatomical Location / LateralityCollection Method / VolumeCollection TimeReceived Time BloodVenous blood specimen / UnknownExisting Catheter / Jkakdmy2511/26/2024 8:27 PM EDT1 8:33 PM EDT Narrative Authorizing ProviderResult TypeResult StatusDustin Jean-Paul [facility] BLOOD ORDERABLES Final ResultPerforming OrganizationAddressCity/State/ZIP CodePhone Number [facility] ([facility]) [address] [place] [address] * HS Troponin I (11/26/2024 8:05 PM EDT) Only the most recent of21 resultswithin the time period is included. ComponentValueRef RangeTest MethodAnalysis TimePerformed AtPathologist Signature High Sensitivity Troponin I<2<15 ng/L1 8:42 PM [facility] ([facility])Specimen (Source)Anatomical Location / LateralityCollection Method / VolumeCollection TimeReceived TimeBloodVenous blood specimen / UnknownExisting Catheter / Ngyqrbz6711/26/2024 8:05 PM EDT1 8:13 PM EDT Narrative Authorizing ProviderResult TypeResult StatusDustin Jean-Paul INCECY BLOOD ORDERABLES Final ResultPerforming OrganizationAddressCity/State/ZIP CodePhone Number [facility] ([facility]) [address] [place] [address] * (ABNORMAL) CBC auto differential (11/26/2024 8:05 PM EDT) Only the most recent of4 resultswithin the time period is included. ComponentValueRef RangeTest MethodAnalysis TimePerformed AtPathologist Signature Auto WBC5.234.00 - 10.60 10*3/uL11/26/2024 8:18 PM [facility] ([facility]) RBC3.37(L)3.80 - 5.00 10*6/uL11/26/2024 8:18 PM [facility] ([facility]) Hemoglobin9.9(L)12.0 - 15.0 g/dL11/26/2024 8:18 PM [facility] ([facility]) Qadcuftzkf61.9(L)36.0 - 45.0 %11/26/2024 8:18 PM [facility] ([facility]) MCV88.782.0 - 98.0 fL11/26/2024 8:18 PM [facility] ([facility])MCH29.427.0 - 33.0 pg11/26/2024 8:18 PM [facility] ([facility])MCHC33.132.0 - 35.0 g/dL11/26/2024 8:18 PM [facility] ([facility])RDW14.011.5 - 15.0 % 11/26/2024 8:18 PM [facility] ([facility])Neutrophils %44.540.0 - 72.0 % 11/26/2024 8:18 PM [facility] ([facility])Lymphocytes %40.520.0 - 45.0 % 11/26/2024 8:18 PM [facility] ([facility])Monocytes %10.95.0 - 12.0 % 11/26/2024 8:18 PM [facility] ([facility])Eosinophils %3.10.0 - 6.0 % 11/26/2024 8:18 PM [facility] ([facility])Basophils %0.80.0 - 1.0 % 11/26/2024 8:18 PM [facility] ([facility])Neutrophils Absolute2.331.60 - 7.60 10*3/uL11/26/2024 8:18 PM [facility] ([facility])Lymphocytes Absolute 2.121.20 - 4.00 10*3/uL11/26/2024 8:18 PM [facility] ([facility])Monocytes Absolute0.570.10 - 1.00 10*3/uL11/26/2024 8:18 PM [facility] ([facility]) Eosinophils Absolute0.160.00 - 0.50 10*3/uL11/26/2024 8:18 PM [facility] ([facility])Basophils Absolute0.040.00 - 0.20 10*3/uL11/26/2024 8:18 PM [facility] ([facility])Mkoxbktew204505 - 400 10*3/uL11/26/2024 8:18 PM [facility] ([facility])nRBC %0.00 %11/26/2024 8:18 PM [facility] ([facility])Immature Granulocytes %0.20.0 - 1.0 %11/26/2024 8:18 PM [facility] ([facility])Immature Granulocytes Absolute0.010.00 - 0.20 10*3/uL11/26/2024 8:18 PM [facility] ([facility])Specimen (Source)Anatomical Location / LateralityCollection Method / VolumeCollection TimeReceived TimeBloodVenous blood specimen / UnknownExisting Catheter / Yzbobja0011/26/2024 8:05 PM EDT 11/26/2024 8:13 PM EDT Narrative Authorizing ProviderResult TypeResult StatusDustin Jean-Paulladi ROBLERO BLOOD ORDERABLES Final ResultPerforming OrganizationAddressCity/State/ZIP CodePhone Number [facility] ([facility]) [address] [place] [address] * Lipase (11/26/2024 8:05 PM EDT)ComponentValueRef RangeTest MethodAnalysis Time Performed AtPathologist GwjdwodccQxehis1267 - 82 U/L1 8:36 PM [facility] ([facility])Specimen (Source)Anatomical Location / Laterality Collection Method / VolumeCollection TimeReceived TimeBloodVenous blood specimen / UnknownExisting Catheter / Migeqau4411/26/2024 8:05 PM EDT1 8:13 PM EDT Narrative Authorizing ProviderResult TypeResult StatusDustin Jean-Paul ROBELRO BLOOD ORDERABLES Final ResultPerforming OrganizationAddressCity/State/ZIP CodePhone Number [facility] ([facility]) [address] [place] [address] * MR abdomen wo contrast MRCP (11/16/2024 [...] PM EDT)ComponentValueRef Range Test MethodAnalysis TimePerformed AtPathologist MxbnytgfqEAX15.4(H)<=5.0 mg/L 11/13/2024 10:24 AM [facility] ([facility])Comment:Testing performed using a new methodology, turbidimetry. Normal ranges have been updated. Old normal range was <8 mg/L.Specimen (Source)Anatomical Location / Laterality Collection Method / VolumeCollection TimeReceived TimeBloodVenous blood specimen / UnknownExisting Catheter / Hhlhvyr9011/11/2024 3:29 PM EDT11/11/2024 3:42 PM EDT Narrative Authorizing ProviderResult TypeResult StatusJonelle ROBLERO BLOOD ORDERABLESFinal ResultPerforming OrganizationAddressCity/State/ZIP CodePhone Number [facility] ([facility]) [address] [place], [place] [id number] * (ABNORMAL) Sedimentation rate (11/11/2024 6:39 AM EDT)ComponentValueRef Range Test MethodAnalysis TimePerformed AtPathologist SignatureSed Rate20(H)<20 mm/hr11/11/2024 12:20 PM [facility] ([facility])Specimen (Source) Anatomical Location / LateralityCollection Method / VolumeCollection Time Received TimeBloodVenous blood specimen / UnknownExisting Catheter / Unknown 11/11/2024 6:39 AM EDT11/11/2024 6:43 AM EDT Narrative Authorizing ProviderResult TypeResult StatusJonelle Harrison MDLAB BLOOD ORDERABLESFinal ResultPerforming OrganizationAddressCity/State/ZIP CodePhone Number [facility] ([facility]) [address] [place] [address] * LEXISCAN STRESS MYOCARDIAL PERFUSION IMAGING (11/10/2024 11:23 AM EDT) Anatomical RegionLateralityModalityOtherSpecimen (Source)Anatomical Location / LateralityCollection Method / VolumeCollection TimeReceived Time11/10/2024 11:14 AM EDT Addenda Addendum by Mitul Zheng MD on 11/10/2024 4:35 PM EDT 1 1 [facility] [address] [place] [address] (fax) Lexiscan Stress Myocardial Perfusion Imaging- [facility] Name: JUAN GARCIA Study Date: 11/10/2024 11:14 AM B/P: / HR: Date of : 1990 Location: [facility] Height: 65 in. Age: 34 year(s) [...] Lexiscan Exercise Time: 03:02 Device: Treadmill HR [place] Used: 21.00 % HR Recovery: 2 bpm Frequent VE: 1 VE/min Resolution: Persisted Max HR: 98 bpm Target HR: 157 bpm Achieved: No Resting HR: 68 bpm Max Predicted HR: 185 bpm Achv. of Max Predicted: 52 % BP Max: 105/71 BP at Rest: 105/71 Max RPP: 23817 mmHg*bpm Max ST Lead: III Max ST Phase: Infusion Stage No. in Phase: [address] Stage: INFUS2:[address] Amplitude: -0.[address] [place]: -0.670 mV/s Max ST Time in Phase: [...] 1.00 mets 67 bpm 105/71 0.250 mm PDCPZ2KFR 00:30 1.00 mets 90 bpm 102/70 0.400 [...] 4 - Aneurysmal Procedure Staff Reading Group: [facility] Referring Physician: BRITT ALAS Stress Computer Equipment Installer: Allyson [place] ??Information Assurance: Lauren Sanchez ??Ordering Physician: BACILIO PEÑA ??Advanced Practitioner: CRISTINA Gibson ??Nurse: Evelyne Abrams ?? Narrative 11/10/2024 4:35 PM EDT 1 1 [facility] [address] [place] [address] [phone] (fax) [facility] Stress Myocardial Perfusion Imaging- [facility] Name: JUAN GARCIA Study Date: 11/10/2024 11:14 AM B/P: / HR: Date of : 1990 Location: [facility] Height: 65 in. Age: 34 year(s) [...] Lexiscan Exercise Time: 03:02 Device: Treadmill HR [place] Used: 21.00 % HR Recovery: 2 bpm Frequent VE: 1 VE/min Resolution: Persisted Max HR: 98 bpm Target HR: 157 bpm ?? Achieved: No Resting HR: 68 bpm Max Predicted HR: 185 bpm Achv. of Max Predicted: 52 % BP Max: 105/71 BP at Rest: 105/71 Max RPP: 54431 mmHg*bpm Max ST Lead: III Max ST Phase: Infusion Stage No. in Phase: [address] Stage: INFUS2:[address] Amplitude: -0.[address] [place]: -0.670 mV/s Max ST Time in Phase: [...] 1.00 mets 67 bpm 105/71 0.250 mm ZCIGW7DJM 00:30 1.00 mets 90 bpm 102/70 0.400 [...] 4 - Aneurysmal Procedure Staff Reading Group: [facility] Referring Physician: BRITT ALAS ??Stress Computer Equipment Installer: [place]son [place] ??Information Assurance: Lauren Sanchez Ordering Physician: BACILIO PEÑA ??Advanced Practitioner: CRISTINA Gibson ??Nurse: Evelyne Abrams ?? Resting Perfusion Procedure Note Mitul Zheng MD - 11/10/2024 1 1 [facility] [address] [place] [address] [phone] (fax) Lexiscan Stress Myocardial Perfusion Imaging- [facility] Name: JUAN GARCIA Study Date: 11/10/2024 11:14 AM B/P: / HR: Date of : 1990 Location: [facility] Height: 65 in. Age: 34 year(s) [...] Lexiscan Exercise Time: 03:02 Device: Treadmill HR [place] Used: 21.00 % HR Recovery: 2 bpm Frequent VE: 1 VE/min Resolution: Persisted Max HR: 98 bpm Target HR: 157 bpm Achieved: No Resting HR: 68 bpm Max Predicted HR: 185 bpm Achv. of Max Predicted: 52 % BP Max: 105/71 BP at Rest: 105/71 Max RPP: 43000 mmHg*bpm Max ST Lead: III Max ST Phase: Infusion Stage No. in Phase: [address] Stage: INFUS2:[address] Amplitude: -0.[address] [place]: -0.670 mV/s Max ST Time in Phase: [...] 1.00 mets 67 bpm 105/71 0.250 mm XQFZS0MHW 00:30 1.00 mets 90 bpm 102/70 0.400 [...] 4 - Aneurysmal Procedure Staff Reading Group: [facility] Referring Physician: BRITT ALAS Stress Computer Equipment Installer: [place]son [place] Information Assurance: Lauren Sanchez Ordering Physician: BACILIO PEÑA Advanced Practitioner: CRISTINA Gibson Nurse: Evelyne Abrams Resting Perfusion Authorizing ProviderResult TypeResult StatusAbjanelle Peña [facility]ESS PROCEDURES Edited Result - Final * Calcium, ionized (11/07/2024 4:50 AM EDT) Only the most recent of5 resultswithin the time period is included. ComponentValueRef RangeTest MethodAnalysis TimePerformed AtPathologist Signature Calcium, Ion1.161.15 - 1.33 mmol/L11/07/2024 5:43 AM [facility] Specimen (Source)Anatomical Location / LateralityCollection Method / Volume Collection TimeReceived TimeBloodVenous blood specimen / UnknownExisting Catheter / Rtvewxm5611/07/2024 4:50 AM EDT11/07/2024 5:38 AM EDT Narrative Authorizing ProviderResult TypeResult Brandon DE LA ROSA BLOOD ORDERABLES Final ResultPerforming OrganizationAddressCity/State/ZIP CodePhone Number [facility] RESPIRATORY THERAPY [address] [place] [address], [place] * Vasc Us Lower Extremity Pseudoaneurysm [...] Signature Hemoglobin9.4(L)12.0 - 15.0 g/dL11/05/2024 9:24 AM [facility] ([facility]) Diiizcwzma22.5(L)36.0 - 45.0 %11/05/2024 9:24 AM [facility] ([facility]) Specimen (Source)Anatomical Location / LateralityCollection Method / Volume Collection TimeReceived TimeBloodVenous blood specimen / UnknownExisting Catheter / Kmzsrjg1311/05/2024 9:01 AM EDT11/05/2024 9:09 AM EDT Narrative Authorizing ProviderResult TypeResult Fab ROBLERO BLOOD ORDERABLESFinal ResultPerforming OrganizationAddressCity/State/ZIP CodePhone Number [facility] ([facility]) [address] [place] [address] * Transfuse RBC (11/04/2024 4:57 PM EDT) [...] signed: Raegan Quinn. Authorizing ProviderResult TypeResult StatusKellilyladi [facility] PROCEDURES Final Result * HEPTEM C (11/03/2024 1:58 AM EDT)ComponentValueRef RangeTest MethodAnalysis TimePerformed AtPathologist SignatureHEPTEM C CLOTTING [id number] - 215 s 11/03/2024 1:58 AM [facility] RESPIRATORY THERAPYHEPTEM C AMPLITUDE 5 UET9074 - 51 mm11/03/2024 1:58 AM [facility] RESPIRATORY THERAPYHEPTEM C AMPLITUDE 10 MIN56 44 - 61 mm11/03/2024 1:58 AM [facility] RESPIRATORY THERAPYHEPTEM C AMPLITUDE 20 RMT4629 - 67 mm11/03/2024 1:58 AM [facility] RESPIRATORY THERAPYHEPTEM C MAXIMUM CLOT [id number] - 69 mm11/03/2024 1:58 AM [facility] RESPIRATORY THERAPY Specimen (Source)Anatomical Location / LateralityCollection Method / Volume Collection TimeReceived PpgdPjkyn18/19/2025 1:58 AM EDT11/03/2024 1:58 AM EDT Narrative Authorizing ProviderResult TypeResult StatusKy Barbour [facility] BLOOD ORDERABLESFinal ResultPerforming OrganizationAddressCity/State/ZIP CodePhone Number [facility] RESPIRATORY THERAPY [address] [place] [address], [place] * FIBTEM C (11/03/2024 1:58 AM EDT)ComponentValueRef RangeTest MethodAnalysis TimePerformed AtPathologist SignatureFIBTEM C AMPLITUDE 5 VIM231 - 16 mm 11/03/2024 1:58 AM [facility] RESPIRATORY THERAPYFIBTEM C AMPLITUDE 10 BMU098 - 17 mm11/03/2024 1:58 AM [facility] RESPIRATORY THERAPYFIBTEM C AMPLITUDE 20 MIN14 6 - 18 mm11/03/2024 1:58 AM [facility] RESPIRATORY THERAPYFIBTEM C MAXIMUM CLOT [id number] - 19 mm11/03/2024 1:58 AM [facility] RESPIRATORY THERAPYSpecimen (Source)Anatomical Location / LateralityCollection Method / VolumeCollection TimeReceived DtqmKnzxo88/19/2025 1:58 AM EDT11/03/2024 1:58 AM EDT Narrative Authorizing ProviderResult TypeResult StatusKy Barbour [facility] BLOOD ORDERABLESFinal ResultPerforming OrganizationAddressCity/State/ZIP CodePhone Number [facility] RESPIRATORY THERAPY [address] [place] [address], [place] * (ABNORMAL) EXTEM C (11/03/2024 1:58 AM EDT)ComponentValueRef RangeTest Method Analysis TimePerformed AtPathologist SignatureEXTEM C CLOTTING [id number] - 73 s 11/03/2024 1:58 AM [facility] [facility] RESPIRATORY THERAPYEXTEM C AMPLITUDE 5 YIT1766 - 52 mm11/03/2024 1:58 AM [facility] RESPIRATORY THERAPYEXTEM C AMPLITUDE 10 RIF9198 - 62 mm11/03/2024 1:58 AM [facility] RESPIRATORY THERAPYEXTEM C AMPLITUDE 20 MIN 6754 - 69 mm11/03/2024 1:58 AM [facility] RESPIRATORY THERAPYEXTEM C MAXIMUM CLOT RZJTVEUP6853 - 72 mm11/03/2024 1:58 AM [facility] RESPIRATORY THERAPYEXTEM C LYSIS INDEX 60 VOT8557 - 100 %11/03/2024 1:58 AM [facility] RESPIRATORY THERAPY EXTEM C MAXIMUM LYSIS10(H)0 - 6 %11/03/2024 1:58 AM [facility] RESPIRATORY THERAPYComment:CO^Preliminary ResultSpecimen (Source)Anatomical Location / LateralityCollection Method / VolumeCollection TimeReceived TimeBlood 11/03/2024 1:58 AM EDT11/03/2024 1:58 AM EDT Narrative Authorizing ProviderResult TypeResult StatusKy Barbour MDLAB BLOOD ORDERABLESFinal ResultPerforming OrganizationAddressCity/State/ZIP CodePhone Number [facility] RESPIRATORY THERAPY [address] [place] [address], * (ABNORMAL) INTEM C (11/03/2024 1:58 AM EDT)ComponentValueRef RangeTest Method Analysis TimePerformed AtPathologist SignatureINTEM C CLOTTING [id number] - 205 s011/03/2024 1:58 AM [facility] RESPIRATORY THERAPYINTEM C AMPLITUDE 5 ZLZ6424 - 54 mm11/03/2024 1:58 AM [facility] RESPIRATORY THERAPYINTEM C AMPLITUDE 10 MIN 5746 - 63 mm11/03/2024 1:58 AM [facility] RESPIRATORY THERAPYINTEM C AMPLITUDE 20 HYH5727 - 68 mm11/03/2024 1:58 AM [facility] RESPIRATORY THERAPYINTEM C MAXIMUM CLOT ZQENHLFW6629 - 70 mm11/03/2024 1:58 AM [facility] RESPIRATORY THERAPYINTEM C LYSIS INDEX 60 MYN3045 - 100 %11/03/2024 1:58 AM [facility] RESPIRATORY THERAPY INTEM C MAXIMUM LYSIS12(H)0 - 7 %11/03/2024 1:58 AM [facility] RESPIRATORY THERAPYComment:CO^Preliminary ResultSpecimen (Source)Anatomical Location / LateralityCollection Method / VolumeCollection TimeReceived TimeBlood 11/03/2024 1:58 AM EDT11/03/2024 1:58 AM EDT Narrative Authorizing ProviderResult TypeResult StatusKy Barbour MDLAB BLOOD ORDERABLESFinal ResultPerforming OrganizationAddressCity/State/ZIP CodePhone Number [facility] RESPIRATORY THERAPY [address] [place] [address], * (ABNORMAL) Protime-INR (11/03/2024 12:07 AM EDT) Only the most recent of2 resultswithin the time period is included. ComponentValueRef RangeTest MethodAnalysis TimePerformed AtPathologist Signature Mxrlmaa43.9(H)12.3 - 14.8 Brxagce5311/03/2024 12:53 AM [facility] ([place])INR1.17(H)0.90 - 1.10011/03/2024 12:53 AM [facility] ([place]) Comment: [facility] RECOMMENDED INR FOR [...] TimeBloodVenous blood specimen / UnknownExisting Catheter / Iolebhw1811/03/2024 12:07 AM EDT11/03/2024 12:27 AM EDT Narrative Authorizing ProviderResult TypeResult StatusDavijose ROBLERO BLOOD ORDERABLES Final ResultPerforming OrganizationAddressCity/State/ZIP CodePhone Number [facility]) [address] [place] [address] * Fibrinogen (11/03/2024 12:07 AM EDT)ComponentValueRef RangeTest MethodAnalysis TimePerformed AtPathologist CivatgdcwSelkbrrlub142774 - 425 mg/dL11/03/2024 12:[address] [facility] ([facility])Specimen (Source)Anatomical Location / LateralityCollection Method / VolumeCollection TimeReceived TimeBloodVenous blood specimen / UnknownExisting Catheter / Lqweyfl6511/03/2024 12:07 AM EDT 11/03/2024 12:27 AM EDT Narrative Authorizing ProviderResult TypeResult StatusDavijose ROBLERO BLOOD ORDERABLES Final ResultPerforming OrganizationAddressCity/State/ZIP CodePhone Number [facility]) [address] [place] [address] * CO AN ELECTIVE ENDOTRACHEAL AIRWAY (11/02/2024 8:56 PM EDT) Narrative Tarik Mayers CAA - 11/02/2024 8:56 PM EDT [place] Nair 11/02/2024 9:06 PM Airway Date/Time: 11/02/2024 8:56 PM Reason: elective Airway not difficult General Information and Staff Patient location during procedure: [place] Anesthesiologist: David Reyes MD Resident/SENIOR FACILITIES MANAGER/CAA: [place] Nair Performed: resident/SENIOR FACILITIES MANAGER/[place] Patient Condition Indications for airway management: anesthesia [...] ComponentValueRef RangeTest MethodAnalysis TimePerformed AtPathologist Signature PRODUCT [id number] BLOOD BANKUnit [id number] BLOOD BANKUnit [facility] BLOOD BANKUnit RhPOSMESILLA VALLEY HOSPITAL BLOOD BANKCrossmatch InterpretationCOMMESILLA VALLEY HOSPITAL BLOOD BANKDispense StatusTRMESILLA VALLEY [facility]OSPITAL BLOOD BANKBlood Expiration [id number] BLOOD BANKProduct Blood Cqix3867EYSG BLOOD BANKUnit Bncfrl618CVZGUU BLOOD BANK Specimen (Source)Anatomical Location / LateralityCollection Method / Volume Collection TimeReceived UcgxEdcjx71/18/2025 8:05 PM EDT Narrative Authorizing ProviderResult TypeResult StatusTomasa Disla MDBLOOD BANK PRODUCT ORDERABLESFinal ResultPerforming OrganizationAddressCity/State/ZIP Code Phone Number [facility]OD [facility] * Type and screen (11/02/2024 8:02 PM EDT)ComponentValueRef RangeTest Method Analysis TimePerformed AtPathologist SignatureABO PzdouoplB94/18/2025 8:42 PM [facility] BLOOD BANKRh YnpeWIZ5811/02/2024 8:42 PM EDCROWN[facility] BLOOD BANKAb ScrnNEG 11/02/2024 8:42 PM [facility] BLOOD BANKSpecimen (Source)Anatomical Location / LateralityCollection Method / VolumeCollection TimeReceived TimeBloodVenous blood specimen / UnknownExisting Catheter / Mwlezyp9411/02/2024 8:02 PM EDT 11/02/2024 8:02 PM EDT Narrative Authorizing ProviderResult TypeResult StatusChrainer ROBLERO BLOOD BANK TEST ORDERABLESFinal ResultPerforming OrganizationAddressCity/State/ZIP Code Phone Number [facility] BLOOD [facility] * Red Top (11/02/2024 8:00 PM EDT)ComponentValueRef RangeTest MethodAnalysis TimePerformed AtPathologist SignatureExtra TubeHold for add-ons.11/02/2024 10:02 PM [facility] ([facility])Comment:Auto resulted.Specimen (Source) Anatomical Location / LateralityCollection Method / VolumeCollection Time Received TimeBloodVenous blood specimen / Tlhaehh5211/02/2024 8:00 PM EDT 11/02/2024 8:19 PM EDT Narrative Authorizing ProviderResult TypeResult StatusKy ROBLERO BLOOD ORDERABLESFinal ResultPerforming OrganizationAddressCity/State/ZIP CodePhone Number [facility] ([facility]) [address] [place] [address] * (ABNORMAL) Activated clotting time (11/02/2024 4:43 PM EDT) Only the most recent of7 resultswithin the time period is included. ComponentValueRef RangeTest MethodAnalysis TimePerformed AtPathologist Signature Activated Clotting Ndjz605(H)82 - 152 s011/02/2024 5:54 PM [facility] ([facility])Specimen (Source)Anatomical Location / LateralityCollection Method / VolumeCollection TimeReceived TimeBloodVenous blood specimen / Oweijze7411/02/2024 4:43 PM EDT11/02/2024 5:54 PM EDT Narrative Authorizing ProviderResult TypeResult StatusCaleb T Km MDLAB POINT OF CARE TEST DOCKED DEVICE UNSOLICITED RESULTSFinal ResultPerforming OrganizationAddress City/State/ZIP CodePhone Number [facility] ([place]) [address] [place] [address] * (ABNORMAL) POCT activated clotting time manually resulted (11/02/2024 4:40 PM EDT) Only the most recent of2 resultswithin the time period is included. ComponentValueRef RangeTest MethodAnalysis TimePerformed AtPathologist Signature Activated Clotting Time YNE246(A)82 - 152 secSpecimen (Source)Anatomical Location / LateralityCollection Method / VolumeCollection TimeReceived TimeBlood Venous blood specimen / Vcnkccy4311/02/2024 4:40 PM EDT Narrative Authorizing ProviderResult TypeResult [...] infiltrated over the right femoral artery. ??A 6-Ivorian sheath was placed in right femoral artery. ?? Coronary angiography was performed with a JL4 and then repeated after IC nitroglycerin 50 mcg x 2. At this time, it was apparent that the LAD had a moderate stenosis and IVUS and iFR were performed. ??Heparin anticoagulation was used for this procedure. ACT was maintained at >250 seconds. A 6 Ivorian xb3 was engaged to the [place]. I [...] Authorizing ProviderResult TypeResult StatusCaleb Mary Jane Barbour [facility] CARDIAC CATH PROCEDURESFinal Result * Light Green Top (11/02/2024 6:15 AM EDT)ComponentValueRef RangeTest Method Analysis TimePerformed AtPathologist SignatureExtra TubeHold for add-ons. 11/02/2024 8:01 AM [facility] ([place])Comment:Auto resulted.Specimen (Source)Anatomical Location / LateralityCollection Method / VolumeCollection TimeReceived TimeBloodVenous blood specimen / UnknownExisting Catheter / Ddpoovv4311/02/2024 6:15 AM EDT11/02/2024 6:38 AM EDT Narrative Authorizing ProviderResult TypeResult StatusCaleb T Km ROBLERO BLOOD ORDERABLESFinal ResultPerforming OrganizationAddressCity/State/ZIP CodePhone Number [facility] ([facility]) [address] [place] [address] * (ABNORMAL) POCT activated clotting time docked device (11/01/2024 4:33 PM EDT) ComponentValueRef RangeTest MethodAnalysis TimePerformed AtPathologist SignatureActivated Clotting Time JUZ524(A)82 - 152 [facility] ([facility])Specimen (Source)Anatomical Location / LateralityCollection Method / VolumeCollection TimeReceived UpcpBdztf31/17/2025 4:33 PM EDT Narrative Authorizing ProviderResult TypeResult StatusCaleb T Km RBOLERO POINT OF CARE TEST DOCKED DEVICE ORDERABLESFinal ResultPerforming OrganizationAddress City/State/ZIP CodePhone Number [facility] ([facility]) [address] [place] [address] * CORONARY ANGIOGRAPHY, ULTRASOUND - CORONARY (11/01/2024 [...] on TPN presents a direct admission from [facility] with chief complaint of chest pain. [...] infiltrated over the right femoral artery. ??A 5-Ivorian Terumo sheath was placed in right femoral [...] was maintained at >250 seconds. A 5 Ivorian Cordis XB 3.0 guide was engaged to the left main. I decided to proceed with IVUS. ??I then advanced a Runthrough wire to the distal left anterior descending. Next, I advanced a Metrasens IVUS catheter. ??IVUS imaging was performed and [...] Details NSTEMI Authorizing ProviderResult TypeResult StatusKy Barbour [facility] CARDIAC CATH PROCEDURESFinal Result * (ABNORMAL) Anti-Xa (Heparin Level) (11/01/2024 6:04 AM EDT) Only the most recent of4 resultswithin the time period is included. ComponentValueRef RangeTest MethodAnalysis TimePerformed AtPathologist Signature Anti-Xa (Heparin)0.27(L)0.3 - 0.7 IU/mL11/01/2024 6:37 AM [facility] ([facility])Comment:Rivaroxaban and Apixaban will interfere with the anti Xa assay used to monitor UFH and LMWH.Specimen (Source)Anatomical Location / Laterality Collection Method / VolumeCollection TimeReceived TimeBloodBlood sample taken from central line / UnknownExisting Catheter / Vtglbgr8611/01/2024 6:04 AM EDT 11/01/2024 6:15 AM EDT Narrative Authorizing ProviderResult TypeResult StatusKy Barbour [facility] BLOOD ORDERABLESFinal ResultPerforming OrganizationAddressCity/State/ZIP CodePhone Number [facility] ([facility]) [address] [place] [address] * (ABNORMAL) Toxicology Screen, Urine (11/01/2024 2:12 AM EDT)ComponentValueRef RangeTest MethodAnalysis TimePerformed AtPathologist SignatureBarbiturates JsdrefnjGjjpemvq63/17/2025 2:57 AM [facility] ([employer]) BenzodiazepinesPositive(A)Nsvcdvdn62/17/2025 2:57 AM [facility] (BEM[employer]ular Patterns)NufjswcewilbTzlhfbqdHlrolxui73/17/2025 2:57 AM [facility] ([employer])PsqjyimnqJtecusqfGlhyenjt03/17/2025 2:57 AM [facility] ([employer])CcpwatnkocComfxnkeRcqwaqae54/17/2025 2:57 AM [facility] ([employer])KlhajcmcfkgmoRktewoqzIghsicyo81/17/2025 2:57 AM [facility] ([employer])OpiatesPositive(A)Nypxzqfe19/17/2025 2:57 AM [facility] ([facility])XkckursGxqpaeenIcfqteiu73/17/2025 2:57 AM [facility] ([facility])Amphetamines/LpnvrnagoywqtapFydohgeuNrihxxqu55/17/2025 2:57 AM [facility] ([facility])KejqpkgnjqgFzfcmsxjGpwlklqd67/17/2025 2:57 AM [facility] ([facility])Specimen (Source)Anatomical Location / Laterality Collection Method / VolumeCollection TimeReceived TimeUrineUrine specimen obtained by clean catch procedure / UnknownNon-blood Collection / Unknown 11/01/2024 2:12 AM EDT11/01/2024 2:18 AM EDT Narrative [facility] ([facility]) - 11/01/2024 2:57 AM EDT Unconfirmed screening results should only be used for medical purposes. Authorizing ProviderResult TypeResult StatusKy ROBLERO URINE ORDERABLESFinal ResultPerforming OrganizationAddressCity/State/ZIP CodePhone Number [facility] ([facility]) [address] [place] [address] * CORONARY ANGIOGRAPHY, LEFT HEART CATH (10/31/2024 [...] informed consent. ??she was brought to the blood bank laboratory professional in a fasting state. The left wrist area was prepped and draped in usual fashion. Micropuncture technique was used for access in the radial artery. ??A 5-Ivorian x 11 cm sheath was placed. ??Verapamil was given through the sheath, and heparin was administered intravenously. ?? A 5 Ivorian JR4 diagnostic catheter was advanced and this [...] catheter was then downsized to a 4 Ivorian JR4 diagnostic catheter however this also was not able to engage the right coronary artery. ??Catheter was exchanged to a ??JR4 diagnostic catheter which could not engage the left coronary artery. ??Catheter was exchanged to a 4 Ivorian JL 3.5 diagnostic catheter which eventually was able to engage the left coronary artery. ??Angiography was performed in multiple views. Catheter was exchanged over the wire to a 4 Ivorian 3DRC catheter. ?? Multiple attempts were made [...] Study Details NSTEMI (non-ST elevated myocardial infarction) ([facility]) [I21.4] Authorizing ProviderResult TypeResult StatusCaleb T [facility] CARDIAC CATH PROCEDURESFinal Result * LIMITED ECHO (TTE) W/ COLOR FLOW AND IMAGING AGENT (10/31/2024 11:40 AM EDT) Anatomical RegionLateralityModalityOtherSpecimen (Source)Anatomical Location / LateralityCollection Method / VolumeCollection TimeReceived Time10/31/2024 11:16 AM EDT Narrative 10/31/2024 12:44 PM EDT 1 1 [facility] [address] [place] [address] [phone] (fax) Echocardiogram-[facility] Name: JUAN GARCIA Study Date: 10/31/2024 11:16 AM B/P: 106 mmHg/67 mmHg HR: 70 bpm Date of : 1990 Location: [facility] Height: 66 in. Age: 34 year(s) [...] minimal pericardial effusion. Procedure Staff Reading Group: [facility] Systems Administrator: DAVID Kearney, RDCS ??Ordering Physician: [place] BARBOUR ?? Wall Motion Scores -1 - hyperkinesia, 0 - not evaluated, 1 - normal, 2 - hypokinesia, 3 - akinesia, 4 - dyskinesia Procedure Note Mitul Zheng MD - 10/31/2024 1 1 [facility] [address] [place] [address] [phone] (fax) Echocardiogram-[facility] Name: JUAN GARCIA Study Date: 10/31/2024 11:16 AM B/P: 106 mmHg/67 mmHg HR: 70 bpm Date of : 1990 Location: [facility] Height: 66 in. Age: 34 year(s) [...] minimal pericardial effusion. Procedure Staff Reading Group: [facility] Systems Administrator: DAVID Kearney, RDCS Ordering Physician: [place] BARBOUR Wall Motion Scores -1 - hyperkinesia, 0 - not evaluated, 1 - normal, 2 - hypokinesia, 3 - akinesia, 4 - dyskinesia Authorizing ProviderResult TypeResult Lena Barbour [facility] ECHO PROCEDURES Final Result * Hemoglobin A1c (10/31/2024 6:27 AM EDT)ComponentValueRef RangeTest Method Analysis TimePerformed AtPathologist SignatureHemoglobin A1C4.54.0 - 6.0 % 10/31/2024 1:13 PM [facility] ([facility])Estimated Average Lmqlpxn62 mg/dL10/31/2024 1:13 PM [facility] ([facility])Specimen (Source) Anatomical Location / LateralityCollection Method / VolumeCollection Time Received TimeBloodBlood sample taken from central line / UnknownExisting Catheter / Dzoutjp5310/31/2024 6:27 AM EDT10/31/2024 7:01 AM EDT Narrative Authorizing ProviderResult TypeResult StatusKy Barbour [facility] BLOOD ORDERABLESFinal ResultPerforming OrganizationAddressCity/State/ZIP CodePhone Number [facility] ([facility]) [address] [place] [address] * (ABNORMAL) Lipid panel (10/31/2024 6:27 AM EDT)ComponentValueRef RangeTest MethodAnalysis TimePerformed AtPathologist FoprizkltZqwxxvzwugvjw37<150 mg/dL 10/31/2024 9:31 AM [facility] ([facility])Comment: TRIGLYCERIDE REFERENCE RANGE: 20 YEARS AND OLDER ?CARDIOVASCULAR RISK LESS THAN 150 mg/dL ? LOW RISK 150 TO 199 mg/dL ?BORDERLINE RISK 200 mg/dL AND GREATER ? HIGH RISK Rdtewsxjpfe808(L)120 - 200 mg/dL10/31/2024 9:31 AM [facility] ([facility]) LDL Gpqwemzpts638 - 160 mg/dL10/31/2024 9:31 AM [facility] ([facility])HDL 4323 - 92 mg/dL10/31/2024 9:31 AM [facility] ([facility])Non HDL Gzclljxqkhc6938/16/2025 9:31 AM [facility] ([facility])Total VLDL-C170 - 40 mg/dL10/31/2024 9:31 AM [facility] ([facility])Cholesterol/HDL Ratio2.7 mg/dL10/31/2024 9:31 AM [facility] ([facility])Specimen (Source)Anatomical Location / LateralityCollection Method / VolumeCollection TimeReceived Time BloodBlood sample taken from central line / UnknownExisting Catheter / Unknown 10/31/2024 6:27 AM EDT10/31/2024 7:11 AM EDT Narrative Authorizing ProviderResult TypeResult StatusKy Barbour [facility] BLOOD ORDERABLESFinal ResultPerforming OrganizationAddressCity/State/ZIP CodePhone Number [facility] ([facility]) [address] [place] [address] * TSH3 Reflex to FT4 (10/30/2024 7:11 PM EDT)ComponentValueRef RangeTest Method Analysis TimePerformed AtPathologist SignatureTSH3.460.34 - 5.60 mIU/L 10/30/2024 8:01 PM [facility] ([facility])Specimen (Source)Anatomical Location / LateralityCollection Method / VolumeCollection TimeReceived Time BloodVenous blood specimen / UnknownExisting Catheter / Pxznmoj5610/30/2024 7:11 PM EDT10/30/2024 7:18 PM EDT Narrative Authorizing ProviderResult TypeResult StatusDebbie Luna [facility] BLOOD ORDERABLES Final ResultPerforming OrganizationAddressCity/State/ZIP CodePhone Number [facility] ([facility]) [address] [place] [address] * (ABNORMAL) aPTT - baseline (10/30/2024 7:11 PM EDT)ComponentValueRef RangeTest MethodAnalysis TimePerformed AtPathologist UphvlugspwRCY74.0(H)25.0 - 35.0 Wdvvbru4010/30/2024 7:48 PM [facility] ([facility])Comment:Clinical significance of the APTT is questionable in the presence of heparin.Specimen (Source)Anatomical Location / LateralityCollection Method / VolumeCollection TimeReceived TimeBloodVenous blood specimen / UnknownExisting Catheter / Rqgnbcc7510/30/2024 7:11 PM EDT10/30/2024 7:18 PM EDT Narrative Authorizing ProviderResult TypeResult Statuscharlotte Luna CNPLAB BLOOD ORDERABLES Final ResultPerforming OrganizationAddressCity/State/ZIP CodePhone Number [facility] ([facility]) [address] [place] [address] * B-type natriuretic peptide (10/30/2024 7:11 PM EDT)ComponentValueRef RangeTest MethodAnalysis TimePerformed AtPathologist LzgtkadqlWXG719 - 100 pg/mL 10/30/2024 7:[address] [facility] ([facility])Specimen (Source)Anatomical Location / LateralityCollection Method / VolumeCollection TimeReceived Time BloodVenous blood specimen / UnknownExisting Catheter / Pavrubi3210/30/2024 7:11 PM EDT10/30/2024 7:18 PM EDT Narrative Authorizing ProviderResult TypeResult StatusJamaica Hospital Medical Centercharlotte [facility] CNPLAB BLOOD ORDERABLES Final ResultPerforming OrganizationAddressCity/State/ZIP CodePhone Number [facility] ([facility]) [address] [place] [address] from Last 3 Months Insurance Advance Directives * Full Code (Latest Code Status on File) Date ActivatedDate MxooljahyooBjtaghze36/2/2025 12:23 PM12/21/2024 4:03 PM * Full Code Date ActivatedDate LgqsxuytnodMewhhltj85/1/2025 8:05 PM10 4:42 PM * Full Code Date ActivatedDate InactivatedComments11/09/2024 12:31 PM11/13/2024 4:34 PM * Full Code Date ActivatedDate InactivatedComments10/30/2024 7:14 PM11/07/2024 7:10 PM * Full Code Date ActivatedDate InactivatedComments08/16/2024 9:21 PM08/20/2024 5:55 PM Care Teams Team MemberRelationshipSpecialtyStart DateEnd Britt Alas MD [address] [facility] [place] [address] PCP - GeneralFamily Medicine08/17/24 Vicky Cardenas RN Case ManagerCase Zmtrtqbiam67/13/25
--- OUTSIDE RECORDS SUMMARY | 2025-01-09 12:17 | XMS_ITS | Clinical Summary ---
Author Organization [facility] Address [address] [place] [address] Care Team Providers Care Vp Medical Name Role Phone Thomas Alas MD Primary Care Provider [phone] Allergies Active AllergyReactionsCriticalityNoted DateCommentsCodeine And Related 11/12/20179599Oluzbg38/13/2024 Medications MedicationSigDispense QuantityRefillsLast FilledStart DateEnd DateStatus metformin [...] bedtime.12/27/2023ctive Active Problems ProblemNoted DateDiagnosed DateImpaired intestinal dpwhodswdm97/18/2024 Jejunostomy tube gicmbxw9706/07/2023Median arcuate ligament gzdmbewz53/14/2023 Dysfunction of sphincter of Oddi11/06/2022cquired xijxabcfjonins94/10/2023 Intractable vomiting with fgnkqu2210/25/2022hronic ubtknlfiktvw13/20/2023Mixed anxiety depressive fbtlhsbe94/20/2023ipolar jtvfgnav17/07/2023Obesity: body mass index of 35.0-39.91evere protein-calorie egnzdfyyofkm60/20/2021 Trauma and stressor-related cxpizfnb63/06/2020Benign essential HTN09/25/2019 Overview (01/25/2024): Last Assessment & Plan: Assessment: not on meds,monitored per PCP BP 141/70 pulse 62 Obstructive sleep apnea eycnzbly90/23/2019 Overview (01/25/2024): wears mask every night Chronic fatigue nrtuvxjm45/05/2019 Social History Tobacco UseTypesPacks/DayYears UsedDateSmoking Tobacco: NeverSmokeless Tobacco: NeverAlcohol UseStandard Drinks/WeekCommentsNo0 (1 standard drink = 0.6 oz pure alcohol)CommentsNoSex and Gender InformationValueDate RecordedSex Assigned at BirthNot on fileLegal LmkVadkwc83/28/2018 1:19 PM EDTGender Identity Spwsxt9911/12/2017 1:20 PM EDTSexual OzrcjkooftzUrvgfpoh39/14/2024 7:37 AM EST Last Filed Vital Signs Vital SignReadingTime TakenCommentsBlood Ytqjsnit248/8209 1:52 PM EDT Phebl320711/02/2022 1:52 PM IBWEthteqpqmln23.8 ??C (98.3 ??F)11/02/2022 10:34 AM EDTRespiratory Rvqt829111/02/2022 1:52 PM EDTOxygen Iseebmjuoh13%11/02/2022 10:34 AM EDTInhaled Oxygen Concentration--Ovsbtl12.3 kg (188 lb)12/29/2023 10:23 AM VKTTvzbvb660.6 cm (5' 6 )12/29/2023 10:23 AM ESTBody Mass Index30.34102/27/2023 10:23 AM EST Plan of Treatment Health MaintenanceDue DateLast DoneCommentsHEPATITIS C VIRUS UAAOUTCVT13/17/1990 TSH1989HIV SCREENING OYVUVQQTPN02/17/2005HEP B VACCINE (1 of 3 - 19+ 3- dose series)2008CERVICAL CANCER SCREENING SLGRHEZYVC28/17/2011HPV VACCINE (1 - 3-dose SCDM series)2016COVID-19 VACCINE ( season) 501/05/2021, 06/23/2020INFLUENZA VACCINE (#1)509/, 11/16/2021, 01/01/2021, Additional history cfaacaSCMZPYE12/07/202708/08/2016TDAP (ADULT)Vgpijgrdq56/07/2017PNEUMOCOCCAL VACCINE SERIESAged OutNo longer eligible based on patient's age to complete this topic Insurance * Guarantor: Corby Kong TypeRelation to PatientDate of BirthPhoneB[facility]jon [facility] AddressPersonal/JkefrdIgto52/17[birth year][address] [place] [address] * Guarantor: Corby Kong TypeRelation to PatientDate of BirthPhoneBiljon [facility] AddressPersonal/IlwhpiLtke92/17[birth year][address] [address] Care Teams Team MemberRelationshipSpecialtyStart DateEnd Thomas Alas MD PCP - Ourrgwh48/14/24
[2025-01-09 12:48] VITALS: BP 108/73; PULSE 80; O2SAT 97
== END 2025-01-09 12:56 | disposition home or self-care (01) ==
PROVIDERS: Emergency Provider Emergency Medicine; PCP Family Medicine
DX: K59.00 Constipation, unspecified (principal); Z98.890 Other specified postprocedural states; D64.9 Anemia, unspecified; R11.2 Nausea with vomiting, unspecified; E86.0 Dehydration; D50.9 Iron deficiency anemia, unspecified
CPT/HCPCS: 36415; 74177; 80048; 80076; 82150; 83690; 85007; 85027; 96374; 96375; 96376; 99284; J0780; J1200; J2405; Q9967

== ENCOUNTER 2025-01-14 08:50 | Outpatient (RCR) | payer MEDICAID, SELFPAY ==
[2024-12-16] MEDS: DIPHENHYDRAMINE HCL 50 MG/ML VIAL IV (13:20)
[2024-12-16] MEDS: PROCHLORPERAZINE 10 MG/2 ML VIAL IV (13:20)
[2024-12-22 08:10] VITALS: BP 103/71; PULSE 64; TEMP 35.6; O2SAT 98
[2024-12-22] MEDS: DIPHENHYDRAMINE HCL 50 MG/ML VIAL IV (08:16)
[2024-12-22] MEDS: PROCHLORPERAZINE 10 MG/2 ML VIAL IV (08:18)
[2024-12-22] MEDS: FERRIC CARBOXYMALTOSE 750 MG in 0.9 % SODIUM CHLORIDE 250 ML 795 MG IV (08:24)
[2024-12-23 09:06] VITALS: BP 100/62; PULSE 71; TEMP 36.5; O2SAT 99
[2024-12-23] MEDS: PROCHLORPERAZINE 10 MG/2 ML VIAL IV (09:12)
[2024-12-23] MEDS: DIPHENHYDRAMINE HCL 50 MG/ML VIAL IV (09:12)
[2024-12-23 09:38] VITALS: BP 119/79; PULSE 82; TEMP 36.7; O2SAT 99
[2024-12-24 09:29] VITALS: BP 114/77; PULSE 79; TEMP 36.8; O2SAT 98
[2024-12-24] MEDS: PROCHLORPERAZINE 10 MG/2 ML VIAL IV (10:01)
[2024-12-24] MEDS: DIPHENHYDRAMINE HCL 50 MG/ML VIAL IV (10:01)
[2024-12-25] MEDS: DIPHENHYDRAMINE HCL 50 MG/ML VIAL IV (08:40)
[2024-12-25] MEDS: PROCHLORPERAZINE 10 MG/2 ML VIAL IV (08:40)
[2024-12-25 08:59] VITALS: BP 122/61; PULSE 85; TEMP 36.6; O2SAT 99
[2024-12-26 08:40] VITALS: BP 124/84; PULSE 83; TEMP 35.9; O2SAT 98
[2024-12-26] MEDS: PROCHLORPERAZINE 10 MG/2 ML VIAL IV (08:44)
[2024-12-26] MEDS: 0.9 % SODIUM CHLORIDE 1,000 ML 1000 ML IV (08:45)
[2024-12-26] MEDS: DIPHENHYDRAMINE HCL 50 MG/ML VIAL IV (08:45)
[2024-12-27 08:29] VITALS: BP 115/80; PULSE 75; TEMP 36.3; O2SAT 99
[2024-12-27] MEDS: DIPHENHYDRAMINE HCL 50 MG/ML VIAL IV (08:34)
[2024-12-27] MEDS: PROCHLORPERAZINE 10 MG/2 ML VIAL IV (08:36)
[2024-12-28 08:30] VITALS: BP 106/77; PULSE 76; TEMP 36.6; O2SAT 99
[2024-12-28] MEDS: DIPHENHYDRAMINE HCL 50 MG/ML VIAL IV (08:36)
[2024-12-28] MEDS: PROCHLORPERAZINE 10 MG/2 ML VIAL IV (08:36)
[2024-12-28] MEDS: 0.9 % SODIUM CHLORIDE 1,000 ML 1000 ML IV (08:51)
[2024-12-29 08:37] VITALS: BP 116/84; PULSE 92; TEMP 36.6; O2SAT 97
[2024-12-29] MEDS: PROCHLORPERAZINE 10 MG/2 ML VIAL IV (08:42)
[2024-12-29] MEDS: DIPHENHYDRAMINE HCL 50 MG/ML VIAL IV (08:47)
[2024-12-30 09:00] VITALS: BP 137/90; PULSE 73; TEMP 36.4
[2024-12-30] MEDS: PROCHLORPERAZINE 10 MG/2 ML VIAL IV (09:07)
[2024-12-30] MEDS: DIPHENHYDRAMINE HCL 50 MG/ML VIAL IV (09:07)
[2024-12-31 08:53] VITALS: BP 132/83; PULSE 76; TEMP 36.4
[2024-12-31] MEDS: DIPHENHYDRAMINE HCL 50 MG/ML VIAL IV (08:59)
[2024-12-31] MEDS: PROCHLORPERAZINE 10 MG/2 ML VIAL IV (08:59)
[2025-01-01 08:30] VITALS: BP 98/58; PULSE 69; TEMP 36.6; O2SAT 98
[2025-01-01] MEDS: PROCHLORPERAZINE 10 MG/2 ML VIAL IV (08:38)
[2025-01-01] MEDS: DIPHENHYDRAMINE HCL 50 MG/ML VIAL IV (08:38)
[2025-01-02 08:35] VITALS: BP 147/77; PULSE 82; TEMP 36.1; O2SAT 97
[2025-01-02] MEDS: PROCHLORPERAZINE 10 MG/2 ML VIAL IV (08:38)
[2025-01-02] MEDS: DIPHENHYDRAMINE HCL 50 MG/ML VIAL IV (08:38)
[2025-01-03 08:36] VITALS: BP 104/55; PULSE 72; TEMP 35.9; O2SAT 100
[2025-01-03] MEDS: PROCHLORPERAZINE 10 MG/2 ML VIAL IV (08:44)
[2025-01-03] MEDS: DIPHENHYDRAMINE HCL 50 MG/ML VIAL IV (08:44)
[2025-01-03] MEDS: 0.9 % SODIUM CHLORIDE 1,000 ML 1000 ML IV (08:45)
[2025-01-04 08:25] VITALS: BP 112/72; PULSE 78; TEMP 36.6; O2SAT 99
[2025-01-04] MEDS: DIPHENHYDRAMINE HCL 50 MG/ML VIAL IV (08:29)
[2025-01-04] MEDS: PROCHLORPERAZINE 10 MG/2 ML VIAL IV (08:29)
[2025-01-05] MEDS: DIPHENHYDRAMINE HCL 50 MG/ML VIAL IV (08:41)
[2025-01-05] MEDS: PROCHLORPERAZINE 10 MG/2 ML VIAL IV (08:41)
[2025-01-05] MEDS: 0.9 % SODIUM CHLORIDE 1,000 ML 1000 ML IV (08:41)
[2025-01-05 08:50] VITALS: BP 114/79; PULSE 83; TEMP 36.3; O2SAT 100
[2025-01-06] MEDS: PROCHLORPERAZINE 10 MG/2 ML VIAL IV (09:12)
[2025-01-06] MEDS: DIPHENHYDRAMINE HCL 50 MG/ML VIAL IV (09:12)
[2025-01-06] MEDS: 0.9 % SODIUM CHLORIDE 1,000 ML 1000 ML IV (09:13)
[2025-01-07] MEDS: DIPHENHYDRAMINE HCL 50 MG/ML VIAL IV (10:08)
[2025-01-07] MEDS: PROCHLORPERAZINE 10 MG/2 ML VIAL IV (10:08)
[2025-01-08] MEDS: 0.9 % SODIUM CHLORIDE 1,000 ML 1000 ML IV (08:36)
[2025-01-08 08:38] VITALS: BP 116/81; PULSE 66; TEMP 36.6; O2SAT 99
[2025-01-08] MEDS: PROCHLORPERAZINE 10 MG/2 ML VIAL IV (08:42)
[2025-01-08] MEDS: DIPHENHYDRAMINE HCL 50 MG/ML VIAL IV (08:44)
[2025-01-09 10:35] VITALS: BP 110/66; PULSE 81; TEMP 36.6; O2SAT 97
[2025-01-09] MEDS: DIPHENHYDRAMINE HCL 50 MG/ML VIAL IV (10:42)
[2025-01-09] MEDS: PROCHLORPERAZINE 10 MG/2 ML VIAL IV (10:42)
[2025-01-10 10:15] VITALS: BP 130/56; PULSE 73; TEMP 36.8; O2SAT 98
[2025-01-10] MEDS: DIPHENHYDRAMINE HCL 50 MG/ML VIAL IV (10:17)
[2025-01-10] MEDS: PROCHLORPERAZINE 10 MG/2 ML VIAL IV (10:24)
[2025-01-12] MEDS: DIPHENHYDRAMINE HCL 50 MG/ML VIAL IV (09:06)
[2025-01-12] MEDS: PROCHLORPERAZINE 10 MG/2 ML VIAL IV (09:06)
[2025-01-12 09:13] VITALS: PULSE 98; TEMP 36.4; O2SAT 100
[2025-01-13 09:02] VITALS: BP 124/88; PULSE 81; TEMP 36.9; O2SAT 97
[2025-01-13] MEDS: PROCHLORPERAZINE 10 MG/2 ML VIAL IV (09:12)
[2025-01-13] MEDS: DIPHENHYDRAMINE HCL 50 MG/ML VIAL IV (09:12)
[2025-01-14 09:04] VITALS: BP 132/81; PULSE 72; TEMP 36.7; O2SAT 98
[2025-01-14] MEDS: PROCHLORPERAZINE 10 MG/2 ML VIAL IV (09:12)
[2025-01-14] MEDS: DIPHENHYDRAMINE HCL 50 MG/ML VIAL IV (09:12)
== END 2025-01-14 23:59 | disposition home or self-care (01) ==
LOC: INF 08:50
PROVIDERS: PCP Family Medicine; Visit Provider Family Medicine
DX: D64.9 Anemia, unspecified (principal); R11.2 Nausea with vomiting, unspecified; E86.0 Dehydration; D50.9 Iron deficiency anemia, unspecified; K90.9 Intestinal malabsorption, unspecified
CPT/HCPCS: 51702; 96360; 96361; 96365; 96374; 96375; J0780; J1200; J1439

== ENCOUNTER 2025-01-18 16:29 | Inpatient (IN) | payer MEDICAID, SELFPAY ==
[2025-01-18 16:34] VITALS: BP 153/79; PULSE 84; TEMP 36.4; O2SAT 100; BMI 29.1
--- NOTE | 2025-01-18 17:31 | CT_ITS ---
The [address] [address] Patient Name: JUAN KONG MRN: [id number] date: 1990 Sex: F Assigned Patient Location: ED.MAIN Current Patient Location: ED.MAIN Accession/Order Number: [id number] Exam Date: 01/18/2025 19:17 Report Date: 01/18/2025 20:00 At the request of: PALLAVI INMAN Procedure: CT abdomen pelvis w con CT ABDOMEN AND PELVIS WITH INTRAVENOUS CONTRAST: CLINICAL HISTORY: RUQ pain, worse than last week, h/o multiple surg COMPARISON: 01/09/2025 TECHNIQUE: Spiral images were obtained through the abdomen and pelvis following the administration of intravenous contrast. This CT exam was performed using one or more following dose reduction techniques: Automated exposure control, adjustment of the mA and/or kV according to patient size, or use of iterative reconstruction technique. FINDINGS: Lung Bases: [Lung bases are clear] Organs:Multifocal hepatic cysts. No abnormal enhancement. Cholecystectomy. Spleen, adrenals, pancreas unremarkable..[Prostate right lower pole calculus. No hydronephrosis. No abnormal renal enhancement identified. GI: Gastric bypass changes.[Postsurgical changes along the cecum likely from appendectomy. Otherwise no evidence of bowel obstruction. Moderate retained stool. Pelvis:[Mild bladder distention. No adnexal mass.] Peritoneum/Retroperitoneum:No free air or free fluid. No adenopathy. Nonaneurysmal aorta[ Abd wall/Bones:No suspicious osseous lesion.[ CT/CT abdomen pelvis w con IMPRESSION: Punctate nonobstructive right-sided nephrolithiasis. Negative acute inflammatory process or bowel obstruction. Impression dictated by: Tio Lundberg M.D. 01/18/2025 8:00 PM Dictation Location: [employer] Electronically authenticated by: [id number] Y Date: 01/18/2025 20:00
[2025-01-18] MEDS: PROCHLORPERAZINE 10 MG/2 ML VIAL IV (17:44)
[2025-01-18] MEDS: DIPHENHYDRAMINE HCL 50 MG/ML VIAL IVP (17:44)
[2025-01-18] MEDS: 0.9 % SODIUM CHLORIDE 1,000 ML 1000 ML IV (17:44)
--- NOTE | 2025-01-18 17:50 | ED.GENADUL1 ---
HPI HPI - General Adult General Chief complaint: Recheck/Abnormal Lab/Rx Stated complaint: NAUSEA, MUSCLE CRAMPS, LABS LOW Time Seen by Provider: 01/18/25 17:04 Source: patient Mode of arrival: walk-in Limitations: no limitations History of Present Illness HPI narrative: This is a 34-year-old female well-known to this facility who presents emergency department with complaints of nausea and vomiting,, fatigue, and muscle cramps. She started having cramping in her bilateral calves about 2 days ago. She has a history of gastroparesis after multiple abdominal surgeries including cholecystectomy and gastric bypass and has a Hodges port that she gets Compazine and Benadryl infusions daily. She is on TPN every other day. She did not get any fluids today with her infusion. She feels the nausea and right upper abdominal pain is worse today. She had labs done at the cancer center in [place] and was told her phosphorus was low, 1.[address] Alas today and told him her symptoms and he recommended going to the ER. She also had a small bowel obstruction about a month ago that she did have surgery for. She has had this progressive right upper quadrant pain since this surgery. She was here last week on 01/09/2025 with abdominal pain and her CT scan was negative for obstruction but did show moderate colonic stool. Related Data Home Medications ?Medication ?Instructions ?Recorded ?Confirmed hydroxyzine HCl 25 mg tablet 25 mg PO BID PRN anxiety 09/17/22 12/08/24 topiramate 100 mg tablet 100 mg PO BID 09/17/22 12/08/24 metoclopramide HCl 10 mg tablet 10 mg PO BID PRN nausea and 06/14/23 12/08/24 vomiting escitalopram oxalate 20 mg tablet 20 mg PO DAILY 06/15/23 12/08/24 levothyroxine 75 mcg tablet 75 mcg PO DAILY 06/15/23 12/08/24 acetaminophen 325 mg tablet (Pain 650 mg PO Q4H PRN pain 06/24/23 12/08/24 Relief (acetaminophen)) blood sugar diagnostic (OneTouch 03/29/24 12/08/24 Ultra Test strips) blood-glucose meter (OneTouch 03/29/24 12/08/24 Ultra2 Meter) blood-glucose sensor (FreeStyle 03/29/24 12/08/24 Hunter 3 Plus Sensor device) fentanyl 25 mcg/hr transdermal 1 patch transdermal Q72H 03/29/24 12/08/24 patch hydrocodone 5 mg-acetaminophen 325 1 tab PO Q6H PRN pain 03/29/24 12/08/24 mg tablet lancets 30 gauge (OneTouch Delica 03/29/24 12/08/24 Plus Lancet) pen needle, diabetic 32 gauge x 03/29/24 12/08/24 (BD Stefania 2nd Gen Pen Needle) prucalopride 2 mg tablet 2 mg PO DAILY 03/29/24 12/08/24 trazodone 100 mg tablet 100 mg PO .qhs 03/29/24 12/08/24 ergocalciferol (vitamin D2) 1,250 1,250 mcg PO .Q7 06/21/24 12/08/24 mcg (50,000 unit) capsule mirtazapine 45 mg tablet 45 mg PO BEDTIME 08/16/24 12/08/24 aspirin 81 mg chewable tablet 1 tab PO .qd 11/19/24 12/08/24 clopidogrel 75 mg tablet 75 mg PO .qd 11/19/24 12/08/24 colchicine 0.6 mg tablet 0.3 mg PO .qod 11/19/24 12/08/24 fentanyl 12 mcg/hr transdermal 1 patch transdermal Q72H 11/19/24 12/08/24 patch methocarbamol 500 mg tablet 750 mg PO Q6H PRN Muscle spasm 11/19/24 12/08/24 metoprolol succinate 25 mg 25 mg PO .qd 11/19/24 12/08/24 tablet,extended release 24 hr ranolazine 500 mg tablet,extended 500 mg PO Q12H 11/19/24 12/08/24 release,12 hr rosuvastatin 40 mg tablet 40 mg PO .qhs 11/19/24 12/08/24 verapamil 40 mg tablet 40 mg PO Q8H 11/19/24 12/08/24 Previous Rx's ?Medication ?Instructions ?Recorded meloxicam 7.5 mg tablet 7.5 mg PO DAILY PRN pain #3 tabs 11/30/24 nitrofurantoin 100 mg PO BID 7 days #14 caps 12/11/24 monohydrate/macrocrystals 100 mg capsule (Macrobid) Allergies Allergy/AdvReac Type Severity Reaction Status Date / Time adhesive Allergy Rash Verified 01/18/25 16:34 NSAIDS (Non-Steroidal Allergy intolerance Verified 01/18/25 16:34 Anti-Inflamma codeine AdvReac Vomiting Verified 01/18/25 16:34 Opioid HPI Opioid Management Most Recent Opioid Data: Last Pain Scale 7 Today, 16:34 Last ORT Total Score 1 11/19/24, 15:40 Last ORT Risk Category Low Risk 11/19/24, 15:40 Ur Phencyclidine Scrn, (NEGATIVE) Negative 08/28/24, 14:10 Review of Systems ROS Status of ROS 10 or more systems reviewed and unremarkable except as noted in history and below [facility] Medical History (Updated 01/18/25 @ 21:14 by HENNY Jones) Coronary artery dissection ?I25.42 - Coronary artery dissection (ICD-10) Hypoglycemia ?E16.2 - Hypoglycemia, unspecified (ICD-10) Gastroenteritis ?K52.9 - Noninfective gastroenteritis and colitis, unspecified (ICD-10) Feeding by G-tube ?Z93.1 - Gastrostomy status (ICD-10) Abdominal pain ?R10.9 - Unspecified abdominal pain (ICD-10) Small bowel intussusception ?K56.1 - Intussusception (ICD-10) Nausea and vomiting ?R11.2 - Nausea with vomiting, unspecified (ICD-10) Flank pain ?R10.9 - Unspecified abdominal pain (ICD-10) Abdominal pain ?R10.9 - Unspecified abdominal pain (ICD-10) Acute abdomen ?R10.0 - Acute abdomen (ICD-10) Intractable nausea and vomiting ?R11.2 - Nausea with vomiting, unspecified (ICD-10) Intractable abdominal pain ?R10.9 - Unspecified abdominal pain (ICD-10) Depression ?F32.A - Depression, unspecified (ICD-10) Asthma ?J45.909 - Unspecified asthma, uncomplicated (ICD-10) Dyspareunia Pelvic pain ?R10.2 - Pelvic and perineal pain (ICD-10) Ovarian cyst ?N83.209 - Unspecified ovarian cyst, unspecified side (ICD-10) PONV (postoperative nausea and vomiting) ?R11.2 - Nausea with vomiting, unspecified (ICD-10) ?Z98.890 - Other specified postprocedural states (ICD-10) PCOS (polycystic ovarian syndrome) ?E28.2 - Polycystic ovarian syndrome (ICD-10) Hypothyroidism (acquired) ?E03.9 - Hypothyroidism, unspecified (ICD-10) Anxiety ?F41.9 - Anxiety disorder, unspecified (ICD-10) GERD (gastroesophageal reflux disease) ?K21.9 - Gastro-esophageal reflux disease without esophagitis (ICD-10) Sleep apnea ?G47.30 - Sleep apnea, unspecified (ICD-10) Anemia ?D64.9 - Anemia, unspecified (ICD-10) Fibromyalgia ?M79.7 - Fibromyalgia (ICD-10) Syncope (07/07/13) ?R55 - Syncope and collapse (ICD-10) Shingles ?B02.9 - Zoster without complications (ICD-10) Headache ?R51.9 - Headache, unspecified (ICD-10) Migraine ?G43.909 - Migraine, unspecified, not intractable, without status migrainosus (ICD-10) Mechanical ileus (01/31/20) ?K56.609 - Unspecified intestinal obstruction, unspecified as to partial versus complete obstruction (ICD-10) COVID-19 (~02/2020) ?U07.1 - COVID-19 (ICD-10) Kidney stones ?N20.0 - Calculus of kidney (ICD-10) Surgical History S/P percutaneous endoscopic gastrostomy (PEG) tube placement ?Z93.1 - Gastrostomy status (ICD-10) 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 - Celiac artery compression syndrome (ICD-10) H/O shoulder surgery (2022) ?Z98.890 - Other specified postprocedural states (ICD-10) History of hip surgery ?Z98.890 - Other specified postprocedural states (ICD-10) S/P right knee arthroscopy ?Z98.890 - Other specified postprocedural states (ICD-10) S/P left knee arthroscopy ?Z98.890 - Other specified postprocedural states (ICD-10) Hx of tonsillectomy ?Z90.89 - Acquired absence of other organs (ICD-10) History of thoracic surgery (~2021) ?Z98.890 - Other specified postprocedural states (ICD-10) History of esophagogastroduodenoscopy (EGD) (10/04/13) ?Z98.890 - Other specified postprocedural states (ICD-10) History of cholecystectomy (10/06/13) ?Z90.49 - Acquired absence of other specified parts of digestive tract (ICD-10) Delivery by section (~2016) Delivery by section (01/17/18) H/O colonoscopy (~2018) ?Z98.890 - Other specified postprocedural states (ICD-10) S/P right knee arthroscopy (07/21/18) ?Z98.890 - Other specified postprocedural states (ICD-10) Delivery by section (06/19/19) History of appendectomy (09/25/19) ?Z90.49 - Acquired absence of other specified parts of digestive tract (ICD-10) H/O laparoscopy (11/10/19) ?Z98.890 - Other specified postprocedural states (ICD-10) History of liver biopsy (~04/2020) ?Z98.890 - Other specified postprocedural states (ICD-10) H/O laparoscopy (07/18/20) ?Z98.890 - Other specified postprocedural states (ICD-10) H/O arthroscopy of right knee (08/07/20) ?Z98.890 - Other specified postprocedural states (ICD-10) S/P laparoscopic sleeve gastrectomy (09/03/20) ?Z98.84 - Bariatric surgery status (ICD-10) H/O: hysterectomy (11/12/20) ?Z90.710 - Acquired absence of both cervix and uterus (ICD-10) History of hernia repair (03/20/21) ?Z98.890 - Other specified postprocedural states (ICD-10) ?Z87.19 - Personal history of other diseases of the digestive system (ICD-10) Family History Other Family history of cancer Family history of diabetes mellitus Family history of hypertension Family history of myocardial infarction PONV (postoperative nausea and vomiting) Social History Within the past year, how often did you have a drink containing alcohol: never Score interpretation: A score less than 3 is consistent with normal alcohol consumption. Smoking status: Never smoker Non-prescribed substance use: denies use Previous occupational history: disabled Known occupational exposures/hazards details: disabled Highest level of school completed/degree received: Master's degree Are you now , , , , never or living with a partner: In a typical week, how many times do you talk on the telephone with family, friends, or neighbors: 3 or more times per week How often do you get together with friends or relatives: twice per week How often do you attend catholic or adventist services: 4 or more times per year Do you belong to any clubs or organizations such as catholic groups unions, [employer] or athletic groups, or school groups: no Total score: 3 Score interpretation: A score of greater than or equal to 2 indicates the lowest level of social isolation. Little interest or pleasure in doing things: not at all Feeling down, depressed, or hopeless: not at all Feel stressed/tense/nervous/anxious/difficulty sleeping: to some extent Do you think of yourself as: straight/heterosexual Gender Identity: female Exam Narrative Exam Narrative: General: No distress, age-appropriate Skin: Warm, dry, no pallor. No rash. Head: Normocephalic, atraumatic. Neck: Supple, non-tender. Eye: Pupils are equal, round and EOMI. No scleral icterus. Ears, Nose, Mouth, and Throat: No nasal mucosal hypertrophy. Oral mucosa is moist, no posterior oropharynx erythema, uvula is mid-line Cardiovascular: Regular Rate and Rhythm without murmur, gallop or rub. Respiratory: No accessory muscle use or respiratory distress. Lungs are clear to auscultation, no wheezing, rales or rhonchi Chest Wall: no tenderness Back: No midline thoracic or lumbar vertebral tenderness. Musculoskeletal: Full ROM of all extremities, no calf or popliteal tenderness GI: Abdomen is soft, non-distended, RUQ tender to palpation, rebound tenderness. No masses appreciated. No guarding or rigidity noted. Multiple healed surgical incisions. Neurological: A&O x4. No cranial nerve dysfunction observed. No truncal ataxia. Moves all extremities. Sensation intact. Psychiatric: Cooperative and interactive. Normal mood and affect. Constitutional Vital Signs, click to edit/add: Last Vital Signs Temp 97.6 F 01/18/25 16:34 Pulse 84 01/18/25 16:34 Resp 16 01/18/25 16:34 BP 153/79 H 01/18/25 16:34 Pulse Ox 100 01/18/25 16:34 Documenting provider has reviewed patient's vital signs: yes Course Vital Signs Vital signs: Vital Signs Temperature 97.6 F 01/18/25 16:34 Pulse Rate 84 01/18/25 16:34 Respiratory Rate 16 01/18/25 16:34 Blood Pressure 153/79 H 01/18/25 16:34 Pulse Oximetry 100 01/18/25 16:34 Temperature 97.6 F 01/18/25 16:34 Pulse Rate 84 01/18/25 16:34 Respiratory Rate 16 01/18/25 16:34 Blood Pressure 153/79 H 01/18/25 16:34 Pulse Oximetry 100 01/18/25 16:34 Medical Decision Making MDM Narrative Medical decision making narrative: This is a 34-year-old female with a complex surgical and gastrointestinal history, including gastroparesis post-gastric bypass, recent small bowel obstruction surgery, and a Hodges port for intermittent infusions, who presents with nausea, vomiting, fatigue, and bilateral calf cramps. Labs from the ED demonstrate severe hypophosphatemia (1.4 mg/dL) and hypocalcemia (7.5 mg/dL), with otherwise normal CMP and lipase. CT abdomen/pelvis with IV contrast shows no acute obstruction or inflammatory process; a small non-obstructing right renal calculus is noted. The patient received IV antiemetics and 1 L normal saline in the ED, with improvement in symptoms. She did request morphine for pain. I discussed with her that I did not recommend this given her persistent constipation. She has appeared comfortable since arrival in the ED, in no distress, vitals stable. Afebrile. She reports ongoing poor oral intake and incomplete bowel evacuation, likely contributing to her electrolyte derangements. Given the need for IV phosphate replacement, continued hydration, close electrolyte monitoring, and management of her gastroparesis, the decision was made to admit under hospitalist service and patient is agreeable after discussion with her. I did speak with Dr. Montelongo who was asked patient for observation. Patient remained stable during her ED course and was admitted to the med/surge floor for further treatment of her hypophosphatemia. Differential Diagnosis Differential Diagnosis: Electrolyte abnormality, SBO, gastroparesis exacerbation Lab Data Lab results reviewed: Yes I reviewed the patient's lab results Labs: Lab Results 01/18/25 Range/Units 17:37 WBC 3.7 L (4.0-11.0) 10^3/uL RBC 3.49 L (4.20-5.40) 10^6/uL Hgb 11.1 L (12.0-16.0) g/dL Hct 33.0 L (36.0-48.0) % MCV 94.6 (81.0-99.0) fL MCH 31.8 (26.7-34.0) pg MCHC 33.6 (29.9-35.2) g/dL RDW 16.4 H (11.0-15.0) % Plt Count 170 (150-450) 10^3/uL MPV 11.0 (9.5-13.5) fL Neut % (Auto) 51.6 (43.0-75.0) % Lymph % (Auto) 37.3 (20.5-60.0) % [place] % (Auto) 8.7 (1.7-12.0) % Eos % (Auto) 1.6 (0.9-7.0) % Baso % (Auto) 0.8 (0.2-2.0) % Neut # (Auto) 1.9 (1.4-6.5) 10^3/uL Lymph # (Auto) 1.4 (1.2-3.8) 10^3/uL [place] # (Auto) 0.3 (0.3-0.8) 10^3/uL Eos # (Auto) 0.1 (0.0-0.7) 10^3/uL Baso # (Auto) 0.0 (0.0-0.1) 10^3/uL Abs Immat Gran (auto) 0.00 (0.00-0.03) 10^3/uL Imm/Tot Granulo (auto) 0.0 (0.0-0.5) % Sodium 143 (136-145) mmol/L Potassium 3.9 (3.5-5.1) mmol/L Chloride 109 H (98-107) mmol/L Carbon Dioxide 28.1 (21.0-32.0) mmol/L Anion Gap 9.8 BUN 9.0 (7.0-18.0) mg/dL Creatinine 0.60 (0.55-1.02) mg/dL Est GFR ( Amer) >60 (>=60 mL/min/1.73m^2) Est GFR (Non-Af Amer) >60 (>=60 mL/min/1.73m^2) BUN/Creatinine Ratio 15.0 Glucose 85 (74-106) mg/dL Calcium 7.5 L (8.5-10.1) mg/dL Phosphorus 1.4 L* (2.6-4.7) mg/dL Magnesium 1.8 (1.8-2.4) mg/dL Total Bilirubin 0.2 (0.2-1.0) mg/dL AST 27 (15-37) U/L ALT 23 (14-59) U/L Alkaline Phosphatase 107 (46-116) U/L Total Protein 5.8 L (6.4-8.2) g/dL Albumin 3.2 L (3.4-5.0) g/dL Globulin 2.6 g/dL Albumin/Globulin Ratio 1.2 Lipase 93.0 H (16.0-77.0) U/L Serum HCG, Qual Negative (NEGATIVE) Imaging Data CT scan - abdomen: Attestation: I have reviewed the pertinent imaging results. Radiologist's impression: ITS Impressions Abdomen/Pelvis CT 01/18/25 17:31 IMPRESSION: Punctate nonobstructive right-sided nephrolithiasis. Negative acute inflammatory process or bowel obstruction. Impression dictated by: Tio Lundberg M.D. 01/18/2025 8:00 PM Dictation Location: [place] [id number] Electronically authenticated by: [id number] Y Date: 01/18/2025 20:00 Discharge Plan Discharge Chief Complaint: Recheck/Abnormal Lab/Rx Clinical Impression: Hypophosphatemia Patient Disposition: Admitted as Observation Time of Disposition Decision: 21:13 Condition: Good
[2025-01-18 18:05] LABS: Hematocrit 33.0 % (36.0-48.0); Hemoglobin 11.1 g/dL (12.0-16.0); Immature Granulocytes Abs Auto 0.00 10^3/uL (0.00-0.03); Immature Granulocytes Pct Auto 0.0 % (0.0-0.5); Lymphocytes Absolute Auto 1.4 10^3/uL (1.2-3.8); Mean Corpuscular HGB Conc 33.6 g/dL (29.9-35.2); Mean Corpuscular Hemoglobin 31.8 pg (26.7-34.0); Mean Corpuscular Volume 94.6 fL (81.0-99.0); Platelet Count 170 10^3/uL (150-450); Red Blood Count 3.49 10^6/uL (4.20-5.40); White Blood Count 3.7 10^3/uL (4.0-11.0)
[2025-01-18 18:29] LABS: Alanine Aminotransferase 23 U/L (14-59); Albumin Globulin Ratio 1.2; Albumin Level 3.2 g/dL (3.4-5.0); Alkaline Phosphatase 107 U/L (46-116); Anion Gap 9.8; Aspartate Amino Transferase 27 U/L (15-37); Blood Urea Nitrogen 9.0 mg/dL (7.0-18.0); Calcium 7.5 mg/dL (8.5-10.1); Carbon Dioxide 28.1 mmol/L (21.0-32.0); Chloride 109 mmol/L (98-107); Estimated GFR (African America >60 (>=60 mL/min/1.73m^2); Estimated GFR (Non-African Ame >60 (>=60 mL/min/1.73m^2); Globulin 2.6 g/dL; Glucose 85 mg/dL (74-106); Lipase 93.0 U/L (16.0-77.0); Magnesium 1.8 mg/dL (1.8-2.4); Potassium 3.9 mmol/L (3.5-5.1); Sodium 143 mmol/L (136-145); Total Protein 5.8 g/dL (6.4-8.2)
[2025-01-18] MEDS: POTASSIUM PHOS,M-BASIC-D-BASIC 30 MMOL in 0.9 % SODIUM CHLORIDE 250 ML 43.333 MMOL IV (19:14)
[2025-01-18 22:37] VITALS: BP 130/89; PULSE 65; TEMP 36.5; O2SAT 99; BMI 28.8
[2025-01-18] MEDS: ENOXAPARIN SODIUM 40 MG/0.4 ML SYRINGE SUBQ (23:41)
[2025-01-18] MEDS: PROMETHAZINE HCL 25 MG in 0.9 % SODIUM CHLORIDE 50 ML 204 MG IV (23:42)
[2025-01-18] MEDS: PANTOPRAZOLE SODIUM 40 MG VIAL IV (23:42)
[2025-01-18] MEDS: KETOROLAC TROMETHAMINE 30 MG/ML VIAL 15 MG IVP (23:42)
[2025-01-19 00:13] LABS: Glucose Urine UA NEGATIVE (NEGATIVE)
[2025-01-19 00:34] LABS: Cast Seen? NONE SEEN #/LPF (NONE SEEN); Crystals Seen? None Seen #/HPF (None Seen); Urine Culture Indicated NO
[2025-01-19] MEDS: MIRTAZAPINE 15 MG TABLET 45 MG PO (00:35)
[2025-01-19] MEDS: TRAZODONE HCL 50 MG TABLET 100 MG PO (00:35)
[2025-01-19] MEDS: TOPIRAMATE 100 MG TABLET PO ×2 (00:36→08:27)
[2025-01-19 04:00] VITALS: BP 109/74; PULSE 63; TEMP 36.4; O2SAT 96
[2025-01-19 05:42] LABS: Hematocrit 32.3 % (36.0-48.0); Hemoglobin 10.7 g/dL (12.0-16.0); Immature Granulocytes Abs Auto 0.00 10^3/uL (0.00-0.03); Immature Granulocytes Pct Auto 0.0 % (0.0-0.5); Lymphocytes Absolute Auto 1.4 10^3/uL (1.2-3.8); Mean Corpuscular HGB Conc 33.1 g/dL (29.9-35.2); Mean Corpuscular Hemoglobin 31.4 pg (26.7-34.0); Mean Corpuscular Volume 94.7 fL (81.0-99.0); Platelet Count 158 10^3/uL (150-450); Red Blood Count 3.41 10^6/uL (4.20-5.40); White Blood Count 2.7 10^3/uL (4.0-11.0)
[2025-01-19 06:07] LABS: Alanine Aminotransferase 22 U/L (14-59); Albumin Globulin Ratio 1.1; Albumin Level 2.7 g/dL (3.4-5.0); Alkaline Phosphatase 80 U/L (46-116); Anion Gap 6.8; Aspartate Amino Transferase 24 U/L (15-37); Blood Urea Nitrogen 5.0 mg/dL (7.0-18.0); Calcium 7.5 mg/dL (8.5-10.1); Carbon Dioxide 28.8 mmol/L (21.0-32.0); Chloride 112 mmol/L (98-107); Estimated GFR (African America >60 (>=60 mL/min/1.73m^2); Estimated GFR (Non-African Ame >60 (>=60 mL/min/1.73m^2); Globulin 2.4 g/dL; Glucose 82 mg/dL (74-106); Lipase 55.0 U/L (16.0-77.0); Magnesium 1.8 mg/dL (1.8-2.4); Potassium 3.6 mmol/L (3.5-5.1); Sodium 144 mmol/L (136-145); Total Protein 5.1 g/dL (6.4-8.2)
[2025-01-19] MEDS: LEVOTHYROXINE SODIUM 75 MCG TABLET PO (06:51)
[2025-01-19 07:33] VITALS: BP 110/67; PULSE 75; TEMP 37.2; O2SAT 96
--- NOTE | 2025-01-19 07:40 | CM.NOTE ---
Rounds made with Dr. Montelongo, pt will discharge to home today and f/u with PCP. No discharge needs identified.
[2025-01-19 08:24] VITALS: BP 116/77; TEMP 36.4; O2SAT 99
[2025-01-19] MEDS: PROCHLORPERAZINE 10 MG/2 ML VIAL IV (08:26)
[2025-01-19] MEDS: ESCITALOPRAM 10 MG TABLET 20 MG PO (08:26)
[2025-01-19] MEDS: ENOXAPARIN SODIUM 40 MG/0.4 ML SYRINGE SUBQ (08:26)
[2025-01-19] MEDS: POTASSIUM CHLORIDE 10 MEQ ER TABLET 20 MEQ PO (08:27)
[2025-01-19] MEDS: DIPHENHYDRAMINE HCL 50 MG/ML VIAL IVP (08:27)
[2025-01-19] MEDS: POTASSIUM PHOS,M-BASIC-D-BASIC 15 MMOL in 0.9 % SODIUM CHLORIDE 100 ML 26.25 MMOL IV (08:27)
[2025-01-19] MEDS: HYDROMORPHONE HCL 1 MG/ML CARTRIDGE 0.5 MG IVP ×2 (08:52→12:08)
--- NOTE | 2025-01-19 10:17 | PM.HP ---
HPI H&P: HPI History of Present Illness Chief complaint: Hypophosphatemia Narrative: Mrs. Garcia is a 34-year-old female who is known to me from previous admissions. Patient is a very nice lady who came in yesterday with nausea and cramps. She reported having a chronic abdominal pain. CAT scan of the abdomen and pelvis does not show any acute intra-abdominal process. Patient was about to be discharged however she was noted to have low phosphorus level requiring intravenous phosphate infusion and a prompting the decision to admit her to the hospital to facilitate that. Patient is doing well this morning. She denies any nausea or vomiting. She denies any abdominal pain. She denies any hematemesis or melena. No fever or chills. Patient is feeling great and requesting to be discharged home. Opioid HPI Opioid Management Most Recent Pain and Opioid Data: Last Pain Scale 3 Today, 10:10 Last Pain Assessment Today, 10:10 Last MAR Pain Assessment Today, 10:00 Last ORT Total Score 2 01/18/25, 22:37 Last ORT Risk Category Low Risk 01/18/25, 22:37 Ur Phencyclidine Scrn, (NEGATIVE) Negative 08/28/24, 14:10 PFSH PFSH Medical History (Updated 01/18/25 @ 21:14 by HENNY Jones) Coronary artery dissection ?I25.42 - Coronary artery dissection (ICD-10) Hypoglycemia ?E16.2 - Hypoglycemia, unspecified (ICD-10) Gastroenteritis ?K52.9 - Noninfective gastroenteritis and colitis, unspecified (ICD-10) Feeding by G-tube ?Z93.1 - Gastrostomy status (ICD-10) Abdominal pain ?R10.9 - Unspecified abdominal pain (ICD-10) Small bowel intussusception ?K56.1 - Intussusception (ICD-10) Nausea and vomiting ?R11.2 - Nausea with vomiting, unspecified (ICD-10) Flank pain ?R10.9 - Unspecified abdominal pain (ICD-10) Abdominal pain ?R10.9 - Unspecified abdominal pain (ICD-10) Acute abdomen ?R10.0 - Acute abdomen (ICD-10) Intractable nausea and vomiting ?R11.2 - Nausea with vomiting, unspecified (ICD-10) Intractable abdominal pain ?R10.9 - Unspecified abdominal pain (ICD-10) Depression ?F32.A - Depression, unspecified (ICD-10) Asthma ?J45.909 - Unspecified asthma, uncomplicated (ICD-10) Dyspareunia Pelvic pain ?R10.2 - Pelvic and perineal pain (ICD-10) Ovarian cyst ?N83.209 - Unspecified ovarian cyst, unspecified side (ICD-10) PONV (postoperative nausea and vomiting) ?R11.2 - Nausea with vomiting, unspecified (ICD-10) ?Z98.890 - Other specified postprocedural states (ICD-10) PCOS (polycystic ovarian syndrome) ?E28.2 - Polycystic ovarian syndrome (ICD-10) Hypothyroidism (acquired) ?E03.9 - Hypothyroidism, unspecified (ICD-10) Anxiety ?F41.9 - Anxiety disorder, unspecified (ICD-10) GERD (gastroesophageal reflux disease) ?K21.9 - Gastro-esophageal reflux disease without esophagitis (ICD-10) Sleep apnea ?G47.30 - Sleep apnea, unspecified (ICD-10) Anemia ?D64.9 - Anemia, unspecified (ICD-10) Fibromyalgia ?M79.7 - Fibromyalgia (ICD-10) Syncope (07/07/13) ?R55 - Syncope and collapse (ICD-10) Shingles ?B02.9 - Zoster without complications (ICD-10) Headache ?R51.9 - Headache, unspecified (ICD-10) Migraine ?G43.909 - Migraine, unspecified, not intractable, without status migrainosus (ICD-10) Mechanical ileus (01/31/20) ?K56.609 - Unspecified intestinal obstruction, unspecified as to partial versus complete obstruction (ICD-10) COVID-19 (~02/2020) ?U07.1 - COVID-19 (ICD-10) Kidney stones ?N20.0 - Calculus of kidney (ICD-10) Surgical History S/P percutaneous endoscopic gastrostomy (PEG) tube placement ?Z93.1 - Gastrostomy status (ICD-10) 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 - Celiac artery compression syndrome (ICD-10) H/O shoulder surgery (2022) ?Z98.890 - Other specified postprocedural states (ICD-10) History of hip surgery ?Z98.890 - Other specified postprocedural states (ICD-10) S/P right knee arthroscopy ?Z98.890 - Other specified postprocedural states (ICD-10) S/P left knee arthroscopy ?Z98.890 - Other specified postprocedural states (ICD-10) Hx of tonsillectomy ?Z90.89 - Acquired absence of other organs (ICD-10) History of thoracic surgery (~2021) ?Z98.890 - Other specified postprocedural states (ICD-10) History of esophagogastroduodenoscopy (EGD) (10/04/13) ?Z98.890 - Other specified postprocedural states (ICD-10) History of cholecystectomy (10/06/13) ?Z90.49 - Acquired absence of other specified parts of digestive tract (ICD-10) Delivery by section (~2016) Delivery by section (01/17/18) H/O colonoscopy (~2018) ?Z98.890 - Other specified postprocedural states (ICD-10) S/P right knee arthroscopy (07/21/18) ?Z98.890 - Other specified postprocedural states (ICD-10) Delivery by section (06/19/19) History of appendectomy (09/25/19) ?Z90.49 - Acquired absence of other specified parts of digestive tract (ICD-10) H/O laparoscopy (11/10/19) ?Z98.890 - Other specified postprocedural states (ICD-10) History of liver biopsy (~04/2020) ?Z98.890 - Other specified postprocedural states (ICD-10) H/O laparoscopy (07/18/20) ?Z98.890 - Other specified postprocedural states (ICD-10) H/O arthroscopy of right knee (08/07/20) ?Z98.890 - Other specified postprocedural states (ICD-10) S/P laparoscopic sleeve gastrectomy (09/03/20) ?Z98.84 - Bariatric surgery status (ICD-10) H/O: hysterectomy (11/12/20) ?Z90.710 - Acquired absence of both cervix and uterus (ICD-10) History of hernia repair (03/20/21) ?Z98.890 - Other specified postprocedural states (ICD-10) ?Z87.19 - Personal history of other diseases of the digestive system (ICD-10) Family History Other Family history of cancer Family history of diabetes mellitus Family history of hypertension Family history of myocardial infarction PONV (postoperative nausea and vomiting) Social History Within the past year, how often did you have a drink containing alcohol: never Score interpretation: A score less than 3 is consistent with normal alcohol consumption. Smoking status: Never smoker Non-prescribed substance use: denies use Previous occupational history: disabled Known occupational exposures/hazards details: disabled Highest level of school completed/degree received: Master's degree Are you now , , , , never or living with a partner: In a typical week, how many times do you talk on the telephone with family, friends, or neighbors: 3 or more times per week How often do you get together with friends or relatives: twice per week How often do you attend religious or orthodox services: 4 or more times per year Do you belong to any clubs or organizations such as religious groups unions, [facility] or athletic groups, or school groups: no Total score: 3 Score interpretation: A score of greater than or equal to 2 indicates the lowest level of social isolation. Little interest or pleasure in doing things: not at all Feeling down, depressed, or hopeless: not at all Feel stressed/tense/nervous/anxious/difficulty sleeping: to some extent Do you think of yourself as: straight/heterosexual Gender Identity: female Meds Home Medications and Allergies Home Medications ?Medication ?Instructions ?Recorded ?Confirmed ?Type hydroxyzine HCl 25 mg tablet 25 mg PO BID PRN anxiety 09/17/22 01/18/25 History topiramate 100 mg tablet 100 mg PO BID 09/17/22 01/18/25 History escitalopram oxalate 20 mg tablet 20 mg PO DAILY 06/15/23 01/18/25 History levothyroxine 75 mcg tablet 75 mcg PO DAILY 06/15/23 01/18/25 History acetaminophen 325 mg tablet (Pain 650 mg PO Q4H PRN pain 06/24/23 01/18/25 History Relief (acetaminophen)) blood sugar diagnostic ([facility] 03/29/24 12/08/24 History Ultra Test strips) blood-glucose meter ([facility] 03/29/24 12/08/24 History Ultra2 Meter) blood-glucose sensor ([employer]Style 03/29/24 12/08/24 History Hunter 3 Plus Sensor device) fentanyl 25 mcg/hr transdermal 1 patch transdermal Q72H 03/29/24 01/18/25 History patch hydrocodone 5 mg-acetaminophen 325 1 tab PO Q6H PRN pain 03/29/24 01/18/25 History mg tablet lancets 30 gauge ([facility] Delica 03/29/24 12/08/24 History Plus Lancet) pen needle, diabetic 32 gauge x 03/29/24 12/08/24 History (BD Stefania 2nd Gen Pen Needle) prucalopride 2 mg tablet 2 mg PO DAILY 03/29/24 01/18/25 History trazodone 100 mg tablet 100 mg PO .qhs 03/29/24 01/18/25 History mirtazapine 45 mg tablet 45 mg PO BEDTIME 08/16/24 01/18/25 History aspirin 81 mg chewable tablet 1 tab PO .qd 11/19/24 01/18/25 History clopidogrel 75 mg tablet 75 mg PO .qd 11/19/24 01/18/25 History colchicine 0.6 mg tablet 0.3 mg PO .qod 11/19/24 01/18/25 History fentanyl 12 mcg/hr transdermal 1 patch transdermal Q72H 11/19/24 01/18/25 History patch methocarbamol 500 mg tablet 750 mg PO Q6H PRN Muscle spasm 11/19/24 01/18/25 History metoprolol succinate 25 mg 25 mg PO .qd 11/19/24 01/18/25 History tablet,extended release 24 hr ranolazine 500 mg tablet,extended 500 mg PO Q12H 11/19/24 01/18/25 History release,12 hr rosuvastatin 40 mg tablet 40 mg PO .qhs 11/19/24 01/18/25 History verapamil 40 mg tablet 40 mg PO Q8H 11/19/24 01/18/25 History sodium di- and 1 tab PO DAILY #30 tabs 01/19/25 Rx monophosphate-potassium phos monobasic 250 mg tablet (N-[id number]-Xdcwirh) Allergies Allergy/AdvReac Type Severity Reaction Status Date / Time adhesive Allergy Rash Verified 01/18/25 16:34 NSAIDS (Non-Steroidal Allergy intolerance Verified 01/18/25 16:34 Anti-Inflamma codeine AdvReac Vomiting Verified 01/18/25 16:34 Exam Narrative Exam Narrative: [pt is awake and alert. oriented to place, time and person HEENT: [place] conjunctiva and NL buccal mucosa Neck: Supple, no tenderness Endocrine: No Thyromegaly. Vascular: No JVD or carotid bruit. Lymphatic: No cervical lymphadenopathy. Chest: CTA no DTP. Patient has a port that she uses for outpatient infusion of antiemetics Heart RRR, no extra sound or murmur. Abd: Soft, no tenderness, no rebound and no rigidity. Increase abd girth therefore clinically I could not exclude the possibility of intra abd mass or organomegaly. LE: No cyanosis or clubbing, no varices or edema. Neuro: A A O. Nl speech, comprehension and attention. Nl and symetrical motor and tone examination through out. []] Constitutional Vital Signs, click to edit/add: Last Vital Signs Temp 97.5 F L 01/19/25 08:24 Pulse 75 01/19/25 07:33 Resp 18 01/19/25 08:24 BP 116/77 01/19/25 08:24 Pulse Ox 99 01/19/25 08:24 O2 Del Method Room Air 01/19/25 08:24 Results Labs Labs: Short CBC 01/18/25 01/19/25 Range/Units 17:37 04:38 WBC 3.7 L 2.7 L (4.0-11.0) 10^3/uL Hgb 11.1 L 10.7 L (12.0-16.0) g/dL Hct 33.0 L 32.3 L (36.0-48.0) % Plt Count 170 158 (150-450) 10^3/uL BMP 01/18/25 01/19/25 17:37 04:38 Sodium 143 144 Potassium 3.9 3.6 Chloride 109 H 112 H Carbon Dioxide 28.1 28.8 BUN 9.0 5.0 L Creatinine 0.60 0.37 L Glucose 85 82 Calcium 7.5 L 7.5 L Liver Function 01/18/25 01/19/25 Range/Units 17:37 04:38 Total Bilirubin 0.2 0.1 L (0.2-1.0) mg/dL AST 27 24 (15-37) U/L ALT 23 22 (14-59) U/L Alkaline Phosphatase 107 80 (46-116) U/L Albumin 3.2 L 2.7 L (3.4-5.0) g/dL Urine 01/18/25 Range/Units 22:45 Urine Color Lt. yellow (YELLOW) Urine Clarity Clear (CLEAR) Urine pH 6.5 (5.0-9.0) Ur Specific [place] 1.010 (1.005-1.025) Urine Protein Negative (NEG/TRACE) mg/dL Urine Glucose (UA) Negative (NEGATIVE) mg/dL Assessment and Plan Assessment and Plan (1) Hypophosphatemia: Plan Hypophosphatemia, hypokalemia Potassium phosphate infusion Her phosphorus level is improved today at 2.4. Still on the low side. Patient will be receiving additional dose of potassium phosphate. Patient has always borderline low potassium and phosphate level. I will discharge her on K-Phos daily I would recommend monitoring of her potassium and phosphate level as well as magnesium in the outpatient setting to ensure stability. To be handled by PCP. Chronic abdominal pain with extensive abdominal intervention. Currently her abdomen is very benign. CAT scan does not show any acute intra-abdominal process. Her lipase is slightly elevated. Patient is tolerating her diet. No tenderness to the epigastric area per se other than her chronic abdominal discomfort. CRP is negative less than 0.5, white count is on the low side. No clinical evidence of acute infectious process. Moderate protein calorie malnutrition Patient is encouraged to continue to drink Ensure and/or boost. Cardiovascular disease Continue cardiovascular medications including dual antiplatelets therapy. Chronic pain syndrome for which patient is on fentanyl patch as well as Percocet Patient is to follow-up with her outpatient providers. I highly recommend gradual wean off opiates over the next several weeks to be handled in the outpatient setting. Polypharmacy Patient is taking a lot of medication that potentially could cause a drug?drug interaction or adverse effect. I encourage patient to discuss this further with her PCP, psychiatrist and humanities and languages professor and attempted to simplify her regimen to reduce her risk. Patient is reluctant to undergo any changes at this time while she is in the hospital under observation for less than 24 hours. Chronic, subacute medical conditions not listed above, abnormal labs and imaging, incidental findings seen on labs and or imaging. These would need to be addressed. Could be addressed later on or in the outpatient setting by PCP collaboration with other needed outpatient providers when time and condition are appropriate. Patient has multiple medical issues as listed above and others that are not listed. All appear to be stable. Patient is feeling great. Tolerating her diet. No acute pain. Patient would like to be discharged home. At this time, I do not have any clear or strong clinical justification to extend inpatient hospitalization. Patient however will require close and frequent monitoring as well as additional work-up, investigation and therapeutic intervention that could take place from this point on post discharge. That is to prevent relapse, decompensation, rehospitalization and other medical implications.. I instructed patient to ask her primary care doctor to obtain [facility] record entirely to address abnormalities seen on labs and imaging that I have and have not addressed during this hospitalization, follow-up on pending blood work, imaging and pathology is if available and to follow-up on needed medical care in the outpatient setting.
--- NOTE | 2025-01-19 10:26 | PM.DS1 ---
DS: Providers Provider Date of admission: 01/18/25 22:26 Primary care physician: Thomas Alas MD DS: Diagnosis Discharge Diagnosis (1) Hypophosphatemia: Plan As listed above, below and others that are not listed DS: Summary Hospital Course Hospital Course: Mrs. Garcia is a 34-year-old female who came in with nonspecific abdominal pain and cramps. Hypophosphatemia, hypokalemia Potassium phosphate infusion Her phosphorus level is improved today at 2.4. Still on the low side. Patient will be receiving additional dose of potassium phosphate. Patient has always borderline low potassium and phosphate level. I will discharge her on K-Phos daily I would recommend monitoring of her potassium and phosphate level as well as magnesium in the outpatient setting to ensure stability. To be handled by PCP. Chronic abdominal pain with extensive abdominal intervention. Currently her abdomen is very benign. CAT scan does not show any acute intra-abdominal process. Her lipase is slightly elevated. Patient is tolerating her diet. No tenderness to the epigastric area per se other than her chronic abdominal discomfort. CRP is negative less than 0.5, white count is on the low side. No clinical evidence of acute infectious process. Moderate protein calorie malnutrition Patient is encouraged to continue to drink Ensure and/or boost. Cardiovascular disease Continue cardiovascular medications including dual antiplatelets therapy. Chronic pain syndrome for which patient is on fentanyl patch as well as Percocet Patient is to follow-up with her outpatient providers. I highly recommend gradual wean off opiates over the next several weeks to be handled in the outpatient setting. Polypharmacy Patient is taking a lot of medication that potentially could cause a drug?drug interaction or adverse effect. I encourage patient to discuss this further with her PCP, psychiatrist and professor of law and attempted to simplify her regimen to reduce her risk. Patient is reluctant to undergo any changes at this time while she is in the hospital under observation for less than 24 hours. Chronic, subacute medical conditions not listed above, abnormal labs and imaging, incidental findings seen on labs and or imaging. These would need to be addressed. Could be addressed later on or in the outpatient setting by PCP collaboration with other needed outpatient providers when time and condition are appropriate. Patient has multiple medical issues as listed above and others that are not listed. All appear to be stable. Patient is feeling great. Tolerating her diet. No acute pain. Patient would like to be discharged home. At this time, I do not have any clear or strong clinical justification to extend inpatient hospitalization. Patient however will require close and frequent monitoring as well as additional work-up, investigation and therapeutic intervention that could take place from this point on post discharge. That is to prevent relapse, decompensation, rehospitalization and other medical implications.. I instructed patient to ask her primary care doctor to obtain [facility] record entirely to address abnormalities seen on labs and imaging that I have and have not addressed during this hospitalization, follow-up on pending blood work, imaging and pathology is if available and to follow-up on needed medical care in the outpatient setting. Time Spent with Patient Time attestation: Total time spent providing and/or coordinating discharge services: Exam Constitutional Vital Signs, click to edit/add: Last Vital Signs Temp 97.5 F L 01/19/25 08:24 Pulse 75 01/19/25 07:33 Resp 18 01/19/25 08:24 BP 116/77 01/19/25 08:24 Pulse Ox 99 01/19/25 08:24 O2 Del Method Room Air 01/19/25 08:24 DS: Data Data Completed and Pending Labs on day of discharge: Labs from last 24 hours 01/19/25 01/18/25 01/18/25 04:38 22:45 17:37 WBC 2.7 L 3.7 L RBC 3.41 L 3.49 L Hgb 10.7 L 11.1 L Hct 32.3 L 33.0 L MCV 94.7 94.6 MCH 31.4 31.8 MCHC 33.1 33.6 RDW 16.6 H 16.4 H Plt Count 158 170 MPV 11.1 11.0 Neut % (Auto) 38.6 L 51.6 Lymph % (Auto) 50.6 37.3 [place] % (Auto) 6.7 8.7 Eos % (Auto) 3.4 1.6 Baso % (Auto) 0.7 0.8 Neut # (Auto) 1.0 L 1.9 Lymph # (Auto) 1.4 1.4 [place] # (Auto) 0.2 L 0.3 Eos # (Auto) 0.1 0.1 Baso # (Auto) 0.0 0.0 Abs Immat Gran (auto) 0.00 0.00 Imm/Tot Granulo (auto) 0.0 0.0 Sodium 144 143 Potassium 3.6 3.9 Chloride 112 H 109 H Carbon Dioxide 28.8 28.1 Anion Gap 6.8 9.8 BUN 5.0 L 9.0 Creatinine 0.37 L 0.60 Est GFR ( Amer) >60 >60 Est GFR (Non-Af Amer) >60 >60 BUN/Creatinine Ratio 13.5 15.0 Glucose 82 85 Calcium 7.5 L 7.5 L Phosphorus 2.4 L 1.4 L* Magnesium 1.8 1.8 Total Bilirubin 0.1 L 0.2 AST 24 27 ALT 22 23 Alkaline Phosphatase 80 107 C-Reactive Protein <0.50 Total Protein 5.1 L 5.8 L Albumin 2.7 L 3.2 L Globulin 2.4 2.6 Albumin/Globulin Ratio 1.1 1.2 Lipase 55.0 93.0 H Serum HCG, Qual Negative Urine Color Lt. yellow Urine Clarity Clear Urine pH 6.5 Ur Specific [place] 1.010 Urine Protein Negative Urine Glucose (UA) Negative Urine Ketones Negative Urine Occult Blood Trace-i Urine Nitrite Negative Urine Bilirubin Negative Urine Urobilinogen 0.2 Ur Leukocyte Esterase Negative Urine RBC None seen Urine WBC 0-2 A Ur Squamous Epith Cells Rare Urine Crystals None seen Urine Bacteria None seen Urine Casts None seen Urine Mucus None seen Ur Culture Indicated? No Discharge Plan Discharge Disposition: Home, Self-Care Condition: Good Discharge Medications: New M-Etds-Obhiiff 250 mg tablet 1 tab PO DAILY Qty: 30 0RF Continued (DME) blood-glucose meter [Extend MediaTouch Ultra2 Meter] [facility] MISCELLANEOUS (DME) OneTouch Ultra Test Strip MISCELLANEOUS fentanyl 25 mcg/hr patch 72 hour 1 patch transdermal Q72H (DME) FreeStyle Hunter 3 Plus Sensor Device MISCELLANEOUS hydrocodone-acetaminophen 5-325 mg tablet 1 tab PO Q6H PRN (Reason: pain) (DME) lancets [OneTouch Delica Plus Lancet] 30 [place] [facility] [place]ISCELLANEOUS (DME) pen needle, diabetic [BD Stefania 2nd Gen Pen Needle] 32 gauge x 5/32 needle MISCELLANEOUS prucalopride 2 mg tablet 2 mg PO DAILY trazodone 100 mg tablet 100 mg PO .qhs mirtazapine 45 mg tablet 45 mg PO BEDTIME aspirin 81 mg tablet,chewable 1 tab PO .qd Rx Instructions: with breakfast clopidogrel 75 mg tablet 75 mg PO .qd colchicine 0.6 mg tablet 0.3 mg PO .qod fentanyl 12 mcg/hr patch 72 hour 1 patch transdermal Q72H metoprolol succinate 25 mg tablet extended release 24 hr 25 mg PO .qd ranolazine 500 mg tablet extended release 12 hr 500 mg PO Q12H rosuvastatin 40 mg tablet 40 mg PO .qhs verapamil 40 mg tablet 40 mg PO Q8H methocarbamol 500 mg tablet 750 mg PO Q6H PRN (Reason: Muscle spasm) hydroxyzine HCl 25 mg tablet 25 mg PO BID PRN (Reason: anxiety) topiramate 100 mg tablet 100 mg PO BID levothyroxine 75 mcg tablet 75 mcg PO DAILY escitalopram oxalate 20 mg tablet 20 mg PO DAILY acetaminophen [Pain Relief (acetaminophen)] 325 mg tablet 650 mg PO Q4H PRN (Reason: pain) Print Language: Mongolian Activity Restrictions/Additional Instructions: I may not have addressed or treated all of your medical illnesses or the abnormal blood work or imaging studies during this hospitalization. Please ask your primary care provider to obtain [facility] records entirely to follow up on all of the abnormal physical, laboratory, and imaging findings that I have not addressed. Please return back to the emergency room or seek medical attention if your symptoms worsen or return. You are taking a lot of medications that potentially could interact with each other or cause you to have adverse effect. I would recommend that you discuss this with your primary care doctor heart doctor and psychiatrist to see if your regimen would need to be simplified or adjusted. Discharging you from [facility] does not mean that your medical care ends here and now. You may still need additional monitoring, work up, investigation, and treatment plan to be handled from this point on by out patient providers including your primary care provider and specialists. For any medication question, please contact your retail pharmacist or your primary care provider. Thank you. Forms: Portal Instructions Follow Up Appointments: Dr. Evette Martinez. 01/25 @ 10:15
[2025-01-19 11:10] VITALS: BP 106/71; PULSE 68; TEMP 36.4; O2SAT 98
--- NOTE | 2025-01-22 12:25 | CM.DCFOLLOWU ---
1st attempt, no answer, 01/22
--- NOTE | 2025-01-23 13:05 | CM.DCFOLLOWU ---
01/23- Pt in ER
== END 2025-01-19 13:15 | disposition home or self-care (01) | DRG 423 ==
LOC: ER 21:14 → MS 01-19 10:11
PROVIDERS: Physician Assistant; Admitting Provider Internal Medicine; Emergency Provider Emergency Medicine; PCP Family Medicine; Visit Provider Internal Medicine
DX: E83.39 Other disorders of phosphorus metabolism (principal); E44.0 Moderate protein-calorie malnutrition; E87.6 Hypokalemia; R10.9 Unspecified abdominal pain; G89.29 Other chronic pain; I25.10 Atherosclerotic heart disease of native coronary artery without angina pectoris; Z79.899 Other long term (current) 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; K31.84 Gastroparesis; Z86.16 Personal history of COVID-19; E03.9 Hypothyroidism, unspecified; Z90.49 Acquired absence of other specified parts of digestive tract; Z98.84 Bariatric surgery status; Z79.890 Hormone replacement therapy; Z79.82 Long term (current) use of aspirin; Z68.28 Body mass index [BMI] 28.0-28.9, adult; J45.909 Unspecified asthma, uncomplicated; Z87.442 Personal history of urinary calculi; D50.9 Iron deficiency anemia, unspecified
CPT/HCPCS: 36415; 36591; 74177; 80053; 81001; 83690; 83735; 84100; 84703; 85025; 86140; 96361; 96365; 96366; 96374; 96375; 99285; J0780; J1171; J1200; J1650; J1885; J2550; Q9967

== ENCOUNTER 2025-01-22 23:02 | Emergency (ER) | payer MEDICAID, SELFPAY ==
--- OUTSIDE RECORDS SUMMARY | 2025-01-17 09:30 | XMS_ITS | Encounter Summary ---
Author Organization [facility] Address [address] [place] [address] Care Team Providers Care Outside Sales Associate Name Role Phone Antelmo Davey MD Unavailable Deacon Valladares MD Unavailable Shanna June CNP Unavailable [phone] Tj Najera Unavailable Unavailable Thomas Alas MD Primary Care Provider [phone] Georgina Barkley MD Unavailable [phone] Source Comments In the event this information is protected by the Federal Confidentiality of Alcohol and Drug AbusePatient Records regulations: The Federal rules restrict any use of the information to criminally investigate or prosecute any alcohol or drug abuse patient.[facility] Reason for Visit * Consult, Test, Treat (Routine) - ClosedSpecialtyDiagnoses / ProceduresReferred By ContactReferred To ContactHematology / HEMATOLOGY/ONCOLOGY Diagnoses lab port draw Procedures LAB/PORT Self Hematology/Oncology [address] [place] [address] [place] [address] Phone: tel: fax: Referral IDStatusReasonStart DateExpiration DateVisits RequestedVisits [id number] Patient Cleared - Admin/Kettle Operator Head/Director advise to proceed or did not respond Encounter Details DateTypeDepartmentCare Team (Latest Contact Info)Qpkfznmtyyl10/03/2025 9:30 AM [facility] Hematology/Oncology [address] [place] [address] [place] [address] On total parenteral nutrition (TPN); At risk for fluid and electrolyte imbalance; Anemia, unspecified type Social History Tobacco UseTypesPacks/DayYears UsedDateSmoking Tobacco: NeverSmokeless Tobacco: NeverAlcohol UseStandard Drinks/WeekCommentsNot Currently0 (1 standard drink = 0.6 oz pure alcohol)[facility] UtilitiesAnswerDate RecordedIn the past 12 months has the Parchment, gas, oil, or water [email or web address] threatened to shut off services in your home?No09/21/2024Social Connection and Isolation PanelAnswerDate RecordedIn a typical week, how many times do you talk on the phone with family, friends, or neighbors?More than three times a week10/28/2022How often do you get together with friends or relatives?Once a week10/28/2022How often do you attend restoration or worship services?1 to 4 times per year10/28/2022o you belong to any clubs or organizations such as restoration groups, unions, fraternal or athletic groups, or school groups?Yes10/28/2022How often do you attend meetings of the clubs or organizations you belong to?More than 4 times per year10/28/2022re you , , , , never , or living with a partner? 10/28/2022UDIT-CAnswerDate RecordedQ1: How often do you have a drink containing alcohol?Never10/28/2022Q2: How many drinks containing alcohol do you have on a typical day when you are drinking?Patient does not drink10/28/2022Q3: How often do you have six or more drinks on one occasion?Never10/28/2022Overall Financial Resource Strain (CARDIA)AnswerDate RecordedHow hard is it for you to pay for the very basics like food, housing, medical care, and heating?Hard12/06/2022HQ-2 AnswerDate RecordedPHQ-2 atikl123[facility] [place] of Occupational Health - Occupational Stress QuestionnaireAnswerDate RecordedDo you feel stress - tense, restless, nervous, or anxious, or unable to sleep at night because your mind is troubled all the time - these days?To some pcqkpd7810/28/2022Exercise Vital SignAnswerDate RecordedOn average, how many days per week do you engage in moderate to strenuous exercise (like a brisk walk)?4 days10/28/2022On average, how many minutes do you engage in exercise at this level?30 min10/28/2022Hunger Vital SignAnswerDate RecordedWithin the past 12 months, you worried that your food would run out before you got the money to buymore.Never true09/21/2024 Within the past 12 months, the food you bought just didn't last and you didn't have money to get more.Never true09/21/2024PRAPARE - TransportationAnswerDate RecordedIn the past 12 months, has lack of transportation kept you from medical appointments or from getting medications?No09/21/2024In the past 12 months, has lack of transportation kept you from meetings, work, or from getting things needed for daily living?No09/21/2024Housing Stability Vital SignAnswerDate RecordedIn the last 12 months, was there a time when you were not able to pay the mortgage or rent on time?No08/08/2023In the last 12 months, how many places have you lived?In the last 12 months, was there a time when you did not have a steady place to sleep or slept in [place] (including now)?No 08/08/2023Housing Stability Vital SignAnswerDate RecordedIn the last 12 months, was there a time when you were not able to pay the mortgage or rent on time?No 09/21/2024Number of Times Moved in the Last YearNot on file09/21/2024t any time in the past 12 months, were you homeless or living in a nursing home (including now)? No5Area Deprivation IndexAnswerDate RecordedNational Score (1-100), lower number is lower prez813506/17/2022State Score (1-10), lower number is lower bsbx4483Data from: https://www.neighborhoodatlas.[facility]/. Last address [address] [place] [address]/17/2022EducationAnswerDate RecordedWhat is the highest level of school you have completed or the highest degree you have received?Master's degree (e.g., MA, MS, Birgit, MEd, PUBLIC RECORDS RESEARCHER, IVANIA) 10/15/2019CommentsNoSex and Gender InformationValueDate RecordedSex Assigned at BirthNot on fileLegal XzyCmaaup85/02/2012 10:06 AM ESTGender IdentityNot on fileSexual OrientationNot on fileOccupationIndustryJob Start Date Job End DateteacherNot on fileNot on fileNot on filedocumented as of this encounter Functional Status * Are you deaf or do you have serious difficulty hearing?AnswerDate of AzgundiiwbOwazmfNq08/12/2025 3:21 PM Priscila Trinidad RN * Are you blind or do you have serious difficulty seeing, even when wearing glasses?AnswerDate of UifcdmhyjnLnojkaHe17/12/2025 3:21 PM Priscila Trinidad RN * Do you have serious difficulty walking or climbing stairs?AnswerDate of FnhdiwozorStkznmKk07/12/2025 3:21 PM Priscila Trinidad RN * Do you have difficulty dressing or bathing?AnswerDate of AssessmentAuthorNo 09/26/2024 3:21 PM Priscila Trinidad RN * Because of a physical, mental, or emotional condition, do you have difficulty doing errands alone such as visiting a doctor's office or shopping?AnswerDate of WovnswnaqwTmvyjdZb97/12/2025 3:21 PM Priscila Trinidad RN documented as of this encounter Mental Status * Because of a physical, mental, or emotional condition, do you have serious difficulty concentrating, remembering, or making decisions?AnswerEntry Date HuoflbGf06/12/2025 3:21 PM Priscila Trinidad RN documented in this encounter Plan of Treatment DateTypeDepartmentCare Team (Latest Contact Info)Fxdexgcfvqz13/10/2025 9:45 AM [facility] Hematology/Oncology [address] [place] [address] [place] [address] LABS03/09/2025 2:00 PM ESTOffice Visit Gastroenterology [address] [phone] Georgina Barkley MD [facility] [address] [phone] CGRT / No RD availabledocumented as of this encounter Goals GoalPatient Goal TypeAssociated ProblemsRecent ProgressPatient-Stated?Author Blood Pressure < 140/90 Blood Wspfydoq234/70(09/29/2024 10:45 AM EDT)Hannah Sage MDdocumented as of this encounter Procedures Procedure NamePriorityDate/TimeAssociated DiagnosisCommentsMAGNESIUM BLDRoutine 01/17/2025 9:31 AM EST On total parenteral nutrition (TPN) At risk for fluid and electrolyte imbalance PHOSPHORUS SYFQSZRAANkjkhnc65/03/2025 9:31 AM EST On total parenteral nutrition (TPN) At risk for fluid and electrolyte imbalance COMPREHENSIVE METABOLIC ZCKFWOivxnoz46/03/2025 9:31 AM EST On total parenteral nutrition (TPN) At risk for fluid and electrolyte imbalance COMPLETE BLOOD VIDCBYpjfukk94/03/2025 9:31 AM EST On total parenteral nutrition (TPN) Anemia, unspecified type documented in this encounter Results * (ABNORMAL) PHOSPHORUS INORGANIC (01/17/2025 9:31 AM EST)ComponentValueRef RangeTest MethodAnalysis TimePerformed AtPathologist SignaturePhosphorus1.2(L) 2.7 - 4.8 mg/dL01/17/2025 10:38 AM [facility] Specimen (Source)Anatomical Location / LateralityCollection Method / Volume Collection TimeReceived TimeBloodBLOOD SPECIMEN / UnknownCentral Line / Jbvhhiy0401/17/2025 9:31 AM EST01/17/2025 9:34 AM EST Narrative Authorizing ProviderResult TypeResult StatusGeorgina Barkley MDLABORATORYFinal ResultPerforming OrganizationAddressCity/State/ZIP CodePhone Number [facility] [address] [place] [address] * MAGNESIUM (01/17/2025 9:31 AM EST)ComponentValueRef RangeTest MethodAnalysis TimePerformed AtPathologist SignatureMagnesium1.71.7 - 2.3 mg/dL01/17/2025 10:38 AM [facility] LABSpecimen (Source)Anatomical Location / LateralityCollection Method / VolumeCollection TimeReceived Time BloodBLOOD SPECIMEN / UnknownCentral Line / Zxkzdnj1901/17/2025 9:31 AM EST 01/17/2025 9:34 AM EST Narrative Authorizing ProviderResult TypeResult StatusGeorgina Barkley MDLABORATORYFinal ResultPerforming OrganizationAddressCity/State/ZIP CodePhone Number [facility] [address] [place] [address] * (ABNORMAL) COMPLETE BLOOD COUNT (01/17/2025 9:31 AM EST)ComponentValueRef RangeTest MethodAnalysis TimePerformed AtPathologist SignatureWBC2.65(L)3.70 - 11.00 k/uL01/17/2025 9:38 AM [facility] LABRBC3.74 (L)3.90 - 5.20 m/uL01/17/2025 9:38 AM [facility] Wbkaiqyvis49.811.5 - 15.5 g/dL01/17/2025 9:38 AM [facility] FRBUmggzfyobl03.9(L)36.0 - 46.0 %01/17/2025 9:38 AM [facility] BOGZZX16.380.0 - 100.0 fL12/04/2024 9:38 AM EST [facility] FPTJCV55.626.0 - 34.0 pg01/17/2025 9:38 AM [facility] SWRYGRG89.830.5 - 36.0 g/dL01/17/2025 9:38 AM [facility] LABRDW-CV16.4(H)11.5 - 15.0 % 01/17/2025 9:38 AM [facility] LABPlatelet Epeqc104 150 - 400 k/uL01/17/2025 9:38 AM [facility] LABMPV 10.89.0 - 12.7 fL01/17/2025 9:38 AM [facility] Absolute nRBC<0.01<0.01 k/uL01/17/2025 9:38 AM [facility] LABSpecimen (Source)Anatomical Location / LateralityCollection Method / VolumeCollection TimeReceived TimeBloodBLOOD SPECIMEN / UnknownCentral Line / Ffbzoem7201/17/2025 9:31 AM EST01/17/2025 9:34 AM EST Narrative Authorizing ProviderResult TypeResult StatusGeorgina Barkley MDLABORATORYFinal ResultPerforming OrganizationAddressCity/State/ZIP CodePhone Number [facility] [address] [place] [address] * (ABNORMAL) COMPREHENSIVE METABOLIC PANEL (01/17/2025 9:31 AM EST)Component ValueRef RangeTest MethodAnalysis TimePerformed AtPathologist Signature Protein, Total5.6(L)6.3 - 8.0 g/dL01/17/2025 10:38 AM ESTRTC.S. [facility] LABAlbumin3.93.9 - 4.9 g/dL01/17/2025 10:38 AM [facility] LABCalcium, Total8.1(L)8.5 - 10.2 mg/dL01/17/2025 10:38 AM [facility] LABBilirubin, Total0.20.2 - 1.3 mg/dL 01/17/2025 10:38 AM [facility] LABAlkaline Yvjuxqgsxkr4618 - 123 U/L103/20/2024 10:38 AM [facility] JPWISL5382 - 35 U/L103/20/2024 10:38 AM [facility] ZSROTH991 - 38 U/L103/20/2024 10:38 AM [facility] ZNUKjkjuyi766(H)74 - 99 mg/dL01/17/2025 10:38 AM [facility] LABComment: The [place] Diabetes Association (ADA) provides guidance for cutoff values for fasting glucose andrandom glucose. The ADA defines fasting as no [...] Standards of Medical Care in Diabetes 2016, [place] [employer]. Diabetes Care. 2016.39(Suppl 1). BUN77 - 21 mg/dL01/17/2025 10:38 AM [facility] Creatinine0.50(L)0.58 - 0.96 mg/dL01/17/2025 10:38 AM [facility] XMOCmatfx467768 - 144 mmol/L103/20/2024 10:38 AM [facility] LABPotassium3.83.7 - 5.1 mmol/L103/20/2024 10:38 AM [facility] MHWRqqfatzy23350 - 107 mmol/L103/20/2024 10:38 AM [facility] BTUTK00136 - 30 mmol/L103/20/2024 10:38 AM [facility] LABAnion Gap98 - 15 mmol/L103/20/2024 10:38 AM [facility] LABEstimated Glomerular Filtration Gfrx414>=60 mL/min/1.73m 01/17/2025 10:38 AM [facility] LABComment:Estimated Glomerular Filtration Rate (eGFR) is calculated using the 2020 CKD-EPI creatinine equation. This equation utilizes serum creatinine, sex, and age as parameters. The creatinine assay has traceable calibration to isotope dilution- mass spectrometry. Refer to KDIGO guidelines for clinical interpretation. In patients with unstable renal function, e.g. those with acute kidney injury, the eGFRmay not accurately reflect actual GFR.Specimen (Source)Anatomical Location / LateralityCollection Method / VolumeCollection TimeReceived TimeBloodBLOOD SPECIMEN / UnknownCentral Line / Bhmezfy4301/17/2025 9:31 AM EST01/17/2025 9:34 AM EST Narrative Authorizing ProviderResult TypeResult StatusShesau Barkley MDLABORATORYFinal ResultPerforming OrganizationAddressCity/State/ZIP CodePhone Number [facility] [address] [place] [address] documented in this encounter Visit Diagnoses Diagnosis On total parenteral nutrition (TPN) Other specified conditions influencing health status At risk for fluid and electrolyte imbalance Anemia, unspecified type documented in this encounter Care Teams Team MemberRelationshipSpecialtyStart DateEnd Thomas Alas MD [address] [place] [address] PCP - GeneralFamily Medicine07/30/23 Antelmo Davey MD [address] [place] [address] 09/25/19 [place] [address] [place] [address] ConsultingGeneral Surgery09/25/19 Shanna June CNP [address] [place] [address] ReferringFamily Medicine10/19/19 Tj Najera PA [address] [place] [address] ReferringFamily Medicine05/13/22 Georgina Barkley MD [address] [place] [address] Home Parenteral Nutrition ProviderGastroenterology10/14/23documented as of this encounter
[2025-01-22] VITALS (8 sets, daily range): BP systolic 144; BP diastolic 91; PULSE 66–75; TEMP 36.8; O2SAT 100; BMI 29.1
--- NOTE | 2025-01-22 23:13 | ECG_ITS ---
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 Measurements Intervals [place] Rate: 69 P: 68 [place]: 154 QRS: 71 QRSD: 84 T: 43 QT: 412 QTc: 431 Interpretive Statements 1100 Sinus rhythm 9110 normal ECG Compared to ECG 12/16/2024 22:45:19 QT has shortened Electronically Signed On 01-23-2025 20:00:21 EST by JAMES HODGES M.D.
--- NOTE | 2025-01-22 23:20 | XR_ITS ---
[place] [id number] Patient Name: JUAN KONG MRN: [id number] date: 1990 Sex: F Assigned Patient Location: ER Current Patient Location: ED.MAIN Accession/Order Number: [id number] Exam Date: 01/22/2025 23:30 Report Date: 01/23/2025 00:15 At the request of: SALVADOR OLSEN MD Procedure: XR abdomen min 2V X-rays of the abdomen INDICATION: Vomiting COMPARISON: 08/02/2024 FINDINGS: Visualized lung bases are clear. Moderate colonic stool burden. Nonspecific nonobstructive bowel gas pattern. No radiopaque calcifications overlying the renal shadows. XR/XR abdomen min 2V IMPRESSION:: Moderate stool burden. No convincingly evidence of bowel obstruction. Impression dictated by: Tio Lundberg M.D. 01/23/2025 12:15 AM Dictation Location: [place] [address] Electronically authenticated by: [id number] Y Date: 01/23/2025 00:15
--- NOTE | 2025-01-22 23:21 | ED.ABDPAIN1 ---
HPI - Abdominal Pain General Chief Complaint: Abdominal Pain Stated Complaint: Abdominal pain, chest pain Time Seen by Provider: 01/22/25 23:13 Source: patient Mode of arrival: walk-in History of Present Illness HPI narrative: history of gastroparesis and receives feeding per TPN. Presents complaining of abdominal pain and vomiting. No fever or dyspnea. Related Data Home Medications ?Medication ?Instructions ?Recorded ?Confirmed hydroxyzine HCl 25 mg tablet 25 mg PO BID PRN anxiety 09/17/22 01/18/25 topiramate 100 mg tablet 100 mg PO BID 09/17/22 01/18/25 escitalopram oxalate 20 mg tablet 20 mg PO DAILY 06/15/23 01/18/25 levothyroxine 75 mcg tablet 75 mcg PO DAILY 06/15/23 01/18/25 acetaminophen 325 mg tablet (Pain 650 mg PO Q4H PRN pain 06/24/23 01/18/25 Relief (acetaminophen)) blood sugar diagnostic ([facility] 03/29/24 12/08/24 Ultra Test strips) blood-glucose meter ([employer] 03/29/24 12/08/24 Ultra2 Meter) blood-glucose sensor ([employer] 03/29/24 12/08/24 Hunter 3 Plus Sensor device) fentanyl 25 mcg/hr transdermal 1 patch transdermal Q72H 03/29/24 01/18/25 patch hydrocodone 5 mg-acetaminophen 325 1 tab PO Q6H PRN pain 03/29/24 01/18/25 mg tablet lancets 30 gauge (OneTouch Delica 03/29/24 12/08/24 Plus Lancet) pen needle, diabetic 32 gauge x 03/29/24 12/08/24 5/32 (BD Stefania 2nd Gen Pen Needle) prucalopride 2 mg tablet 2 mg PO DAILY 03/29/24 01/18/25 trazodone 100 mg tablet 100 mg PO .qhs 03/29/24 01/18/25 mirtazapine 45 mg tablet 45 mg PO BEDTIME 08/16/24 01/18/25 aspirin 81 mg chewable tablet 1 tab PO .qd 11/19/24 01/18/25 clopidogrel 75 mg tablet 75 mg PO .qd 11/19/24 01/18/25 colchicine 0.6 mg tablet 0.3 mg PO .qod 11/19/24 01/18/25 fentanyl 12 mcg/hr transdermal 1 patch transdermal Q72H 11/19/24 01/18/25 patch methocarbamol 500 mg tablet 750 mg PO Q6H PRN Muscle spasm 11/19/24 01/18/25 metoprolol succinate 25 mg 25 mg PO .qd 11/19/24 01/18/25 tablet,extended release 24 hr ranolazine 500 mg tablet,extended 500 mg PO Q12H 11/19/24 01/18/25 release,12 hr rosuvastatin 40 mg tablet 40 mg PO .qhs 11/19/24 01/18/25 verapamil 40 mg tablet 40 mg PO Q8H 11/19/24 01/18/25 Previous Rx's ?Medication ?Instructions ?Recorded sodium di- and 1 tab PO DAILY #30 tabs 01/19/25 monophosphate-potassium phos monobasic 250 mg tablet (E-Thjm-Akzebmi) Allergies Allergy/AdvReac Type Severity Reaction Status Date / Time adhesive Allergy Rash Verified 01/18/25 16:34 NSAIDS (Non-Steroidal Allergy intolerance Verified 01/18/25 16:34 Anti-Inflamma codeine AdvReac Vomiting Verified 01/18/25 16:34 Review of Systems ROS Status of ROS 10 or more systems reviewed and unremarkable except as noted in history and below [facility] Medical History (Updated 01/23/25 @ 03:54 by Gideon Espinoza MD) Coronary artery dissection ?I25.42 - Coronary artery dissection (ICD-10) Hypoglycemia ?E16.2 - Hypoglycemia, unspecified (ICD-10) Gastroenteritis ?K52.9 - Noninfective gastroenteritis and colitis, unspecified (ICD-10) Feeding by G-tube ?Z93.1 - Gastrostomy status (ICD-10) Abdominal pain ?R10.9 - Unspecified abdominal pain (ICD-10) Small bowel intussusception ?K56.1 - Intussusception (ICD-10) Nausea and vomiting ?R11.2 - Nausea with vomiting, unspecified (ICD-10) Flank pain ?R10.9 - Unspecified abdominal pain (ICD-10) Abdominal pain ?R10.9 - Unspecified abdominal pain (ICD-10) Acute abdomen ?R10.0 - Acute abdomen (ICD-10) Intractable nausea and vomiting ?R11.2 - Nausea with vomiting, unspecified (ICD-10) Intractable abdominal pain ?R10.9 - Unspecified abdominal pain (ICD-10) Depression ?F32.A - Depression, unspecified (ICD-10) Asthma ?J45.909 - Unspecified asthma, uncomplicated (ICD-10) Dyspareunia Pelvic pain ?R10.2 - Pelvic and perineal pain (ICD-10) Ovarian cyst ?N83.209 - Unspecified ovarian cyst, unspecified side (ICD-10) PONV (postoperative nausea and vomiting) ?R11.2 - Nausea with vomiting, unspecified (ICD-10) ?Z98.890 - Other specified postprocedural states (ICD-10) PCOS (polycystic ovarian syndrome) ?E28.2 - Polycystic ovarian syndrome (ICD-10) Hypothyroidism (acquired) ?E03.9 - Hypothyroidism, unspecified (ICD-10) Anxiety ?F41.9 - Anxiety disorder, unspecified (ICD-10) GERD (gastroesophageal reflux disease) ?K21.9 - Gastro-esophageal reflux disease without esophagitis (ICD-10) Sleep apnea ?G47.30 - Sleep apnea, unspecified (ICD-10) Anemia ?D64.9 - Anemia, unspecified (ICD-10) Fibromyalgia ?M79.7 - Fibromyalgia (ICD-10) Syncope (07/07/13) ?R55 - Syncope and collapse (ICD-10) Shingles ?B02.9 - Zoster without complications (ICD-10) Headache ?R51.9 - Headache, unspecified (ICD-10) Migraine ?G43.909 - Migraine, unspecified, not intractable, without status migrainosus (ICD-10) Mechanical ileus (01/31/20) ?K56.609 - Unspecified intestinal obstruction, unspecified as to partial versus complete obstruction (ICD-10) COVID-19 (~02/2020) ?U07.1 - COVID-19 (ICD-10) Kidney stones ?N20.0 - Calculus of kidney (ICD-10) Surgical History S/P percutaneous endoscopic gastrostomy (PEG) tube placement ?Z93.1 - Gastrostomy status (ICD-10) 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 - Celiac artery compression syndrome (ICD-10) H/O shoulder surgery (2022) ?Z98.890 - Other specified postprocedural states (ICD-10) History of hip surgery ?Z98.890 - Other specified postprocedural states (ICD-10) S/P right knee arthroscopy ?Z98.890 - Other specified postprocedural states (ICD-10) S/P left knee arthroscopy ?Z98.890 - Other specified postprocedural states (ICD-10) Hx of tonsillectomy ?Z90.89 - Acquired absence of other organs (ICD-10) History of thoracic surgery (~2021) ?Z98.890 - Other specified postprocedural states (ICD-10) History of esophagogastroduodenoscopy (EGD) (10/04/13) ?Z98.890 - Other specified postprocedural states (ICD-10) History of cholecystectomy (10/06/13) ?Z90.49 - Acquired absence of other specified parts of digestive tract (ICD-10) Delivery by section (~2016) Delivery by section (01/17/18) H/O colonoscopy (~2018) ?Z98.890 - Other specified postprocedural states (ICD-10) S/P right knee arthroscopy (07/21/18) ?Z98.890 - Other specified postprocedural states (ICD-10) Delivery by section (06/19/19) History of appendectomy (09/25/19) ?Z90.49 - Acquired absence of other specified parts of digestive tract (ICD-10) H/O laparoscopy (11/10/19) ?Z98.890 - Other specified postprocedural states (ICD-10) History of liver biopsy (~04/2020) ?Z98.890 - Other specified postprocedural states (ICD-10) H/O laparoscopy (07/18/20) ?Z98.890 - Other specified postprocedural states (ICD-10) H/O arthroscopy of right knee (08/07/20) ?Z98.890 - Other specified postprocedural states (ICD-10) S/P laparoscopic sleeve gastrectomy (09/03/20) ?Z98.84 - Bariatric surgery status (ICD-10) H/O: hysterectomy (11/12/20) ?Z90.710 - Acquired absence of both cervix and uterus (ICD-10) History of hernia repair (03/20/21) ?Z98.890 - Other specified postprocedural states (ICD-10) ?Z87.19 - Personal history of other diseases of the digestive system (ICD-10) Family History Other Family history of cancer Family history of diabetes mellitus Family history of hypertension Family history of myocardial infarction PONV (postoperative nausea and vomiting) Social History Within the past year, how often did you have a drink containing alcohol: never Score interpretation: A score less than 3 is consistent with normal alcohol consumption. Smoking status: Never smoker Non-prescribed substance use: denies use Previous occupational history: disabled Known occupational exposures/hazards details: disabled Highest level of school completed/degree received: Master's degree Are you now , , , , never or living with a partner: In a typical week, how many times do you talk on the telephone with family, friends, or neighbors: 3 or more times per week How often do you get together with friends or relatives: twice per week How often do you attend latter-day or confucianist services: 4 or more times per year Do you belong to any clubs or organizations such as latter-day groups unions, fraternal or athletic groups, or school groups: no Total score: 3 Score interpretation: A score of greater than or equal to 2 indicates the lowest level of social isolation. Little interest or pleasure in doing things: not at all Feeling down, depressed, or hopeless: not at all Feel stressed/tense/nervous/anxious/difficulty sleeping: to some extent Do you think of yourself as: straight/heterosexual Gender Identity: female Exam Constitutional Vital Signs, click to edit/add: Last Vital Signs Temp 98.2 F 01/22/25 23:09 Pulse 64 01/23/25 00:40 Resp 13 01/23/25 00:40 BP 144/91 H 01/22/25 23:12 Pulse Ox 100 01/22/25 23:20 O2 Del Method Room Air 01/22/25 23:09 Common normals: no apparent distress, average body habitus, oriented x3, no limitations, healthy appearing, alert and well nourished [facility] Common normals: normocephalic and head/scalp atraumatic Eye Common normals: EOMs intact bilaterally and conjunctivae normal Respiratory Common normals: normal respiratory effort, no retractions and no use of accessory muscles Cardio Common normals: regular rate, regular rhythm, S1 normal heart sound and S2 normal heart sound GI Common normals: Normal to inspection, nondistended, normoactive bowel sounds present and soft to palpation Other: very mild tenderness Extremity Common normals: normal to inspection and full ROM Neuro Common normals: oriented x3, CN's II-XII intact bilaterally and moves all extremities Psych Appearance: grossly normal Course Vital Signs Vital signs: Vital Signs Pulse Oximetry 100 01/22/25 23:08 Temperature 98.2 F 01/22/25 23:09 Pulse Rate 64 01/23/25 00:40 Respiratory Rate 13 01/23/25 00:40 Blood Pressure 144/91 H 01/22/25 23:12 Pulse Oximetry 100 01/22/25 23:20 Oxygen Delivery Method Room Air 01/22/25 23:09 MDM - Abdominal Pain MDM Narrative Medical decision making narrative: patient presents complaining of nausea and vomiting and abdominal pain. Treated with benadryl and compazine as well as morphine. xray with findings of mod. stool burden. Given enema with little response . Continued to complain of abdominal pain and because of this CT abd/pelvis ordered which returned without acute findings. WBC 3.6. BMP WNL and troponin neg. EKG normal. Patient reasurred and is now feeling better. Discharged to follow up with her doctor Lab Data Labs: Lab Results 01/22/25 Range/Units 23:41 WBC 3.6 L (4.0-11.0) 10^3/uL RBC 3.71 L (4.20-5.40) 10^6/uL Hgb 11.7 L (12.0-16.0) g/dL Hct 35.2 L (36.0-48.0) % MCV 94.9 (81.0-99.0) fL MCH 31.5 (26.7-34.0) pg MCHC 33.2 (29.9-35.2) g/dL RDW 15.9 H (11.0-15.0) % Plt Count 180 (150-450) 10^3/uL MPV 10.5 (9.5-13.5) fL Neut % (Auto) 46.7 (43.0-75.0) % Lymph % (Auto) 43.4 (20.5-60.0) % Garvin % (Auto) 7.6 (1.7-12.0) % Eos % (Auto) 1.7 (0.9-7.0) % Baso % (Auto) 0.6 (0.2-2.0) % Neut # (Auto) 1.7 (1.4-6.5) 10^3/uL Lymph # (Auto) 1.5 (1.2-3.8) 10^3/uL Garvin # (Auto) 0.3 (0.3-0.8) 10^3/uL Eos # (Auto) 0.1 (0.0-0.7) 10^3/uL Baso # (Auto) 0.0 (0.0-0.1) 10^3/uL Abs Immat Gran (auto) 0.00 (0.00-0.03) 10^3/uL Imm/Tot Granulo (auto) 0.0 (0.0-0.5) % Sodium 141 (136-145) mmol/L Potassium 3.8 (3.5-5.1) mmol/L Chloride 109 H (98-107) mmol/L Carbon Dioxide 26.7 (21.0-32.0) mmol/L Anion Gap 9.1 BUN 8.0 (7.0-18.0) mg/dL Creatinine 0.55 (0.55-1.02) mg/dL Est GFR ( Amer) >60 (>=60 mL/min/1.73m^2) Est GFR (Non-Af Amer) >60 (>=60 mL/min/1.73m^2) BUN/Creatinine Ratio 14.5 Glucose 90 (74-106) mg/dL Lactate 0.6 (0.4-2.0) mmol/L Calcium 8.1 L (8.5-10.1) mg/dL Troponin I High Sens <4.0 L (4.0-51.3) pg/mL Discharge Plan Discharge Chief Complaint: Abdominal Pain Clinical Impression: Nausea & vomiting, Abdominal pain Patient Disposition: Home, Self-Care Prescriptions / Home Meds: No Action (DME) blood-glucose meter [OneTouch Ultra2 Meter] [facility] MISCELLANEOUS (DME) OneTouch Ultra Test Strip MISCELLANEOUS fentanyl 25 mcg/hr patch 72 hour 1 patch transdermal Q72H (DME) FreeStyle Hunter 3 Plus Sensor Device MISCELLANEOUS hydrocodone-acetaminophen 5-325 mg tablet 1 tab PO Q6H PRN (Reason: pain) (DME) lancets [OneTouch Delica Plus Lancet] [address] [facility] MISCELLANEOUS (DME) pen needle, diabetic [BD Stefania 2nd Gen Pen Needle] 32 gauge x 5/32 needle MISCELLANEOUS prucalopride 2 mg tablet 2 mg PO DAILY trazodone 100 mg tablet 100 mg PO .qhs mirtazapine 45 mg tablet 45 mg PO BEDTIME aspirin 81 mg tablet,chewable 1 tab PO .qd Rx Instructions: with breakfast clopidogrel 75 mg tablet 75 mg PO .qd colchicine 0.6 mg tablet 0.3 mg PO .qod fentanyl 12 mcg/hr patch 72 hour 1 patch transdermal Q72H metoprolol succinate 25 mg tablet extended release 24 hr 25 mg PO .qd ranolazine 500 mg tablet extended release 12 hr 500 mg PO Q12H rosuvastatin 40 mg tablet 40 mg PO .qhs verapamil 40 mg tablet 40 mg PO Q8H methocarbamol 500 mg tablet 750 mg PO Q6H PRN (Reason: Muscle spasm) F-Gkgu-Mwdfynw 250 mg tablet 1 tab PO DAILY Qty: 30 0RF hydroxyzine HCl 25 mg tablet 25 mg PO BID PRN (Reason: anxiety) topiramate 100 mg tablet 100 mg PO BID levothyroxine 75 mcg tablet 75 mcg PO DAILY escitalopram oxalate 20 mg tablet 20 mg PO DAILY acetaminophen [Pain Relief (acetaminophen)] 325 mg tablet 650 mg PO Q4H PRN (Reason: pain) Print Language: [place] Citizen Instructions: Abdominal Pain (ED) Referrals: Thomas Alas MD [Primary Care Provider, Family Practice] - 1 week
--- OUTSIDE RECORDS SUMMARY | 2025-01-22 23:25 | XMS_ITS | Clinical Summary ---
Author Organization [facility] Healthcare Address [address] [place] [address] Care Team Providers Care Mattress Filling Machine Tender Name Role Phone Anna Mendez SALES AND MARKETING REPRESENTATIVE Unavailable Thomas Alas MD Primary Care Provider [phone] Allergies Active AllergyReactionsCriticalityNoted QxwzQmpgaorxRvraerl60/21/2023Morphine And CodeineNausea And Vomiting,Other,OxsphfqZdahev01/23/2014 Other Reaction(s): GI Upset, Nausea/vomiting, Not available, Other (See Comments), unknown NsaidsGI nybztfwryxyQnu77/15/2022 S/p RYGB Other Reaction(s): Nausea/vomiting Other Reaction(s): Other (See Comments), Unknown Gastric bypass S/p RYGB S/p RYGB Oxycodone-UzvbkkgkdobfeZquhkaiwqrpNaws56/30/4202Zerkkzgl98/14/2024Wound Dressing IvofwmvtDrvttQcnxpg22/23/2020 Sensitive to certain adhesive tapes. Redness and [...] the morning and 1 puff before bedtime.08/20/2021ctive hearo.fmTouch Ultra test strip USE TO TEST BLOOD SUGAR TWICE DAILY08/17/2021ctive hydrOXYzine HCl (Atarax) 25 MG tablet TAKE 1 TABLET BY MOUTH TWICE A DAY NEEDED FOR ANXIETY/CFQIKBEW31/24/2023 Active Lancets (OneTouch Delica Plus Hkwgfj86M) misc USE TO TEST BLOOD SUGAR TWICE DAILY08/17/2021ctive liothyronine (Cytomel) 5 MCG tablet liothyronine 5 mcg tpxivl9105/21/2022ctive mirtazapine (Remeron) 15 MG tablet Take 15 [...] & Plan: Assessment: monitored per PCP Patellofemoral awadiujnw04/20/2023Other specified noninflammatory disorders of mujqqy3108/04/2022Mixed incontinence urge and ttydbf0608/04/2022Mixed anxiety and depressive mzujasbk52/20/2023Internal derangement of right etndazhq84/20/2023 GERD (gastroesophageal reflux disease)08/04/2022 Overview (08/04/2022): Last Assessment & Plan: Assessment: takes meds,stable Gall stone08/04/20220208Qdgnvfzh53/20/6925Puyakkfrh78/20/2023hronic constipation 08/04/20224121Sehxkg59/20/2023 Overview (08/04/2022): Takes Pro FE daily. Last Assessment & Plan: Assessment: iron infusions ~1 month ago Acute pain of right knee08/04/2022Vaginal pain08/04/2022Right flank pain 08/04/2022Rash and nonspecific skin keavflxg12/07/2023History of sleep apnea 06/24/2022History of Isabel-en-Y gastric gjjpxo5506/24/2022ipolar disorder 06/21/2022astric ynfbfa8601/29/2022ONV (postoperative nausea and vomiting) 01/29/2022Ventral hernia without obstruction or gtakovrz84/27/2022 Overview (08/04/2022): Last Assessment & Plan: Assessment: will have surgery Calculus of uxcezy7903/10/2021History of sleeve llrbvokmotq94/22/2021 Overview (08/04/2022): Last Assessment & Plan: Assessment: 08/2020, down 50 lbs Kcgerv3108/21/2020 Overview (08/04/2022): Last Assessment & Plan: Assessment: Advair BID and Albuterol daily Unilateral primary osteoarthritis, right knee04/26/2020bnormal finding on imaging of liver04/07/2020evere protein-calorie malnutrition (HHS-HCC) 1Right upper quadrant abdominal pain01/31/2020Situational stress 01/03/2020Panic disorder without xmsyhwokusm65/06/2020Back pain10/15/2019Malaise and delixcz2610/06/2019Chronic bilateral low back pain without rpgsuyff82/21/2020 Ywwfnla0910/06/20195312Rhspmrj39/10/2020 Overview (08/04/2022): Last Assessment & Plan: Assessment: BMI 31.8 Benign essential HTN09/25/2019 Overview (08/04/2022): Last Assessment & Plan: Assessment: not on meds,monitored per PCP BP 141/70 pulse 62 Regurgitation of food09/25/2019Preoperative uootwhmlbum91/10/2020Nausea 09/25/2019Obstructive sleep apnea /23/2019 Overview (08/04/2022): wears mask every night Last Assessment & Plan: Assessment: uses CPAP nightly Laryngopharyngeal xtkzzx0510/07/2018Adrenal eqcbnzbjoyaf89/20/2019Insulin syglfvmqir24/19/2019Reactive tfampgtwftcm56/19/2019Iron uutosxwksv50/05/2019 Chronic fatigue qedshpan91/05/2019Vitamin D erwaptybtm40/05/2019Insomnia 09/15/2018Maltracking of right jjynaxq9506/27/2018Internal derangement of right knee06/15/2018Osteoarthritis of patellofemoral joint05/30/2018Chondromalacia of patella, right05/30/2018Arthritis of right knee05/30/2018Hypothyroidism affecting in second jnhrdoapw00/08/2018Hypertensive fkhmyojt57/30/2018 39 weeks gestation of ([facility])11/23/2016Polycystic tbsrjuw4210/02/2013 Asthma without status ltitsylhfap97/18/2014Gastric ulcer02/15/2013 Overview (08/04/2022): Last Assessment & Plan: [...] Date RecordedSex Assigned at BirthNot on fileLegal FscBndivg41/01/2023 8:33 PM EDTGender IdentityNot on fileSexual OrientationNot on file Last Filed Vital Signs Vital SignReadingTime TakenCommentsBlood Rzrucjay300/8009 8:40 AM EDT Pulse--Temperature--Respiratory Rate--Oxygen Saturation--Inhaled Oxygen Concentration--Umtdrr95.9 kg (185 lb)12/14/2023 2:11 PM WFBDayrbe198.6 cm (5' 6 )12/14/2023 2:11 PM EDTBody Mass Index29.8612/14/2023 2:11 PM EDT Plan of Treatment Not on file Insurance Care Teams Team MemberRelationshipSpecialtyStart DateEnd Date Thomas Alas MD [address] [place] [address] PCP - GeneralFamily Pylrdyey15/29/24 Anna Mendez NP [address] [place] [address] Referring Physicianmily Medicine07/23/22
--- OUTSIDE RECORDS SUMMARY | 2025-01-22 23:25 | XMS_ITS | Clinical Summary ---
Author Organization [facility] Address [address] [place] [address] Care Team Providers Care Anatomic Pathology Manager Name Role Phone Mateusz Rosales MD Unavailable [phone] Source Comments The following information is NOT included in Care Everywhere downloads:Psychiatric notes, ECG results, Cardiac Rehab notes, Pulmonary Function notes, data from SmartForms (includes but not limited toPregnancy data,audiograms, eye exams, pre-surgical evaluation notes, well-child exam data).[facility] Medications No known medications Active Problems ProblemNoted DateDiagnosed DateMedian arcuate ligament cpljwyap74/02/2025 Assessment & Plan (10/09/2024 2:29 PM EDT): [...] release include prior laparotomy and open repair Immunizations ImmunizationAdministration DatesNext DueInfluenza, injectable, quadrivalent, preservative free (TNT=351)11/12/2022,11/16/2021,12/25/2020Influenza, unspecified formulation (CVX=88)01/01/2021,11/28/2018 Social History Tobacco UseTypesPacks/DayYears UsedDateSmoking Tobacco: NeverSmokeless Tobacco: Never Tobacco Cessation:Counseling Given: Not Answered CommentsUnknownSex and Gender InformationValueDate RecordedSex Assigned at BirthNot on fileLegal FztFbwarw60/23/2024 2:52 PM ESTGender IdentityNot on fileSexual OrientationNot on file Last Filed Vital Signs Vital SignReadingTime TakenCommentsBlood Uoyzyzgw514/7307/17/2024 2:27 PM EDT Smfbb698107/17/2024 2:27 PM IIOCvmfanqjinb81.4 ??C (97.5 ??F)07/17/2024 2:27 PM EDTRespiratory Yulb727007/17/2024 2:27 PM EDTOxygen Nsjgptiary16%07/17/2024 2:27 PM EDTInhaled Oxygen Concentration--Oxwqld62.5 kg (192 lb 12.8 oz)07/17/2024 2:27 PM EDTHeight--Body Mass Index-- Plan of Treatment Health MaintenanceDue DateLast DoneCommentsMammography (shared decision-making, age 35-39)1989HIV Test2004Hepatitis C Rtfjpcui04/17/2008Tdap Booster 2007Hepatitis A (HAV) Vaccine (optional start 19+ years)2008 Hepatitis B (HBV) Vaccine (1 of 3 - 19+ 3-dose series)2008HPV Vaccine (optional start 27-45 years)2016Pap Smear/OVID-19 Vaccine (3 - 2024- season)501/05/2021, 06/23/2020Influenza Vaccine (#1)509/, 11/16/2021, 01/01/2021, Additional history exists Shingles (RZV) Vaccine (1 of 2)2039MammographyDiscontinuedPneumococcal Vaccine(s)Aged OutNo longer eligible based on patient's age to complete this topic Insurance * Guarantor: Corby Garcia TypeRelation to PatientDate of BirthPhoneBilling AddressPersonal/CvjloxCqlf02/17/[id number] [address] Care Teams Team MemberRelationshipSpecialtyStart DateEnd Date Mateusz Rosales MD [address] [place] [id number] PhysicianGeneral Surgery05/20/24
--- OUTSIDE RECORDS SUMMARY | 2025-01-22 23:25 | XMS_ITS | Clinical Summary ---
Author Organization [facility] [place] Address [address] [place] [address] Care Team Providers Care Research Instructor Name Role Phone Thomas Alas MD Primary Care Provider [phone] Allergies Active AllergyReactionsCriticalityNoted DateCommentsCodeine And Related 11/12/20171602Kjlkdv50/13/2024 Medications MedicationSigDispense QuantityRefillsLast FilledStart DateEnd DateStatus metformin [...] bedtime.12/27/2023ctive Active Problems ProblemNoted DateDiagnosed DateImpaired intestinal jpubqtqplb61/18/2024 Jejunostomy tube dvqsisa4106/07/2023Median arcuate ligament ermzpzzc20/14/2023 Dysfunction of sphincter of Oddi11/06/2022cquired flrgjdsgpydhfp12/10/2023 Intractable vomiting with zrwyaw1010/25/2022hronic stgbxrxgqwze42/20/2023Mixed anxiety depressive esxdvvyw38/20/2023ipolar casxgkwa34/07/2023Obesity: body mass index of 35.0-39.91evere protein-calorie lzpacxkbxbhw67/20/2021 Trauma and stressor-related wueacoyp96/06/2020Benign essential HTN09/25/2019 Overview (01/25/2024): Last Assessment & Plan: Assessment: not on meds,monitored per PCP BP 141/70 pulse 62 Obstructive sleep apnea bhgephxb66/23/2019 Overview (01/25/2024): wears mask every night Chronic fatigue ytasfwrg29/05/2019 Social History Tobacco UseTypesPacks/DayYears UsedDateSmoking Tobacco: NeverSmokeless Tobacco: NeverAlcohol UseStandard Drinks/WeekCommentsNo0 (1 standard drink = 0.6 oz pure alcohol)CommentsNoSex and Gender InformationValueDate RecordedSex Assigned at BirthNot on fileLegal JfaEfwgmn96/28/2018 1:19 PM EDTGender Identity Sqygnb1811/12/2017 1:20 PM EDTSexual KuaucxrnjmlJugmgywd49/14/2024 7:37 AM EST Last Filed Vital Signs Vital SignReadingTime TakenCommentsBlood Bqrolsvr395/8209 1:52 PM EDT Gtasc808911/02/2022 1:52 PM HWWSqmibneqntp23.8 ??C (98.3 ??F)11/02/2022 10:34 AM EDTRespiratory Vlnb062611/02/2022 1:52 PM EDTOxygen Bhnzenidpu79%11/02/2022 10:34 AM EDTInhaled Oxygen Concentration--Lexbfa82.3 kg (188 lb)12/29/2023 10:23 AM NNYKvjkie577.6 cm (5' 6 )12/29/2023 10:23 AM ESTBody Mass Index30.34102/27/2023 10:23 AM EST Plan of Treatment Health MaintenanceDue DateLast DoneCommentsHEPATITIS C VIRUS XNNXSMKVO05/17/1990 TSH1989HIV SCREENING GSZMMUGJQP31/17/2005HEP B VACCINE (1 of 3 - 19+ 3- dose series)2008CERVICAL CANCER SCREENING WDFIYYHLAI90/17/2011HPV VACCINE (1 - 3-dose SCDM series)2016COVID-19 VACCINE ( season) 501/05/2021, 06/23/2020INFLUENZA VACCINE (#1)509/, 11/16/2021, 01/01/2021, Additional history whjpvfFSNQLGL83/07/202708/08/2016TDAP (ADULT)Dfncsvlxm19/07/2017PNEUMOCOCCAL VACCINE SERIESAged OutNo longer eligible based on patient's age to complete this topic Insurance * Guarantor: Corby Kong TypeRelation to PatientDate of BirthPhoneBilweir[facility] AddressPersonal/KpgsboIryn52/17[birth year][id number] [place] [address] * Guarantor: Corby Kong TypeRelation to PatientDate of BirthPhoneBilweirton medical center AddressPersonal/MicbfySsrw81/[birth year][address] [address] Care Teams Team MemberRelationshipSpecialtyStart DateEnd Thomas Alas MD PCP - Rqqufop92/14/24
--- OUTSIDE RECORDS SUMMARY | 2025-01-22 23:25 | XMS_ITS | Encounter Summary ---
Author Organization [facility] Address [facility] [place] [address] Care Team Providers Care Fretted Instrument Maker Hand Name Role Phone Antelmo Davey MD Unavailable [phone] Deacon Valladares MD Unavailable [phone] Shanna June CNP Unavailable [phone] Tj Najera Unavailable Unavailable Thomas Alas MD Primary Care Provider [phone] Georgina Barkley MD Unavailable [phone] Source Comments In the event this information is protected by the Federal Confidentiality of Alcohol and Drug AbusePatient Records regulations: The Federal rules restrict any use of the information to criminally investigate or prosecute any alcohol or drug abuse patient.[facility] Reason for Visit * ReasonCommentsResultsLow phos Encounter Details DateTypeDepartmentCare Team (Latest Contact Info)Pdkbmptkxkk23/04/2025Telephone Gastroenterology [address] [address] Fittings Tightener, [address] [place] [address] Results (Low phos) Social History Tobacco UseTypesPacks/DayYears UsedDateSmoking Tobacco: NeverSmokeless Tobacco: NeverAlcohol UseStandard Drinks/WeekCommentsNot Currently0 (1 standard drink = 0.6 oz pure alcohol)[facility] UtilitiesAnswerDate RecordedIn the past 12 months [...] relatives?Once a week10/28/2022How often do you attend episcopal or muslim services?1 to 4 times per year10/28/2022o you belong to any clubs or organizations such as episcopal groups, unions, fraternal [...] housing, medical care, and heating?Hard12/06/2022HQ-2 AnswerDate RecordedPHQ-2 dtuxm57103/15/2024Fin[facility] [place] of Occupational Health - Occupational Stress QuestionnaireAnswerDate RecordedDo you feel stress - tense, restless, nervous, or anxious, or unable to sleep at night because your mind is troubled all the time - these days?To some ueoofm1510/28/2022Exercise Vital SignAnswerDate RecordedOn average, how many days [...] steady place to sleep or slept in [facility] (including now)?No 08/08/2023Housing Stability Vital SignAnswerDate RecordedIn the last 12 months, was there a time when you were not able to pay the mortgage or rent on time?No 09/21/2024Number of Times Moved in the Last YearNot on file09/21/2024t any time in the past 12 months, were you homeless or living in a care home (including now)? No09/21/2024rea Deprivation IndexAnswerDate RecordedNational Score (1-100), lower number is lower kyvc991706/17/2022State Score (1-10), lower number is lower dpmo081ata from: https://www.neighborhoodatlas.medicine.[facility].edu/. Last address used for [address] [address]EducationAnswerDate RecordedWhat is the highest level of school you have completed or the highest degree you have received?Master's degree (e.g., MA, MS, Birgit, MEd, SHIP LOADER, IVANIA) 10/15/2019CommentsNoSex and Gender InformationValueDate RecordedSex Assigned at BirthNot on fileLegal NyaWriurm41/02/2012 10:06 AM ESTGender IdentityNot on fileSexual OrientationNot on fileOccupationIndustryJob Start Date Job End DateteacherNot on fileNot on fileNot on filedocumented as of this encounter Functional Status * Are you deaf or do you have serious difficulty hearing?AnswerDate of OplqtevipdXbiemeRu98/12/2025 3:21 PM Priscila Trinidad RN * Are you blind or do you have serious difficulty seeing, even when wearing glasses?AnswerDate of HblcfifkomPefvmnQp19/12/2025 3:21 PM Priscila Trinidad RN * Do you have serious difficulty walking or climbing stairs?AnswerDate of ZnariovwabRdsotbRp68/12/2025 3:21 PM Priscila Trinidad RN * Do you have difficulty dressing or bathing?AnswerDate of AssessmentAuthorNo 09/26/2024 3:21 PM Priscila Trinidad RN * Because of a physical, mental, or emotional condition, do you have difficulty doing errands alone such as visiting a doctor's office or shopping?AnswerDate of KvhzaqmiwwIztugoEn83/12/2025 3:21 PM Priscila Trinidad RN documented as of this encounter Mental Status * Because of a physical, mental, or emotional condition, do you have serious difficulty concentrating, remembering, or making decisions?AnswerEntry Date YwkyriTk55/12/2025 3:21 PM Priscila Trinidad RN documented in this encounter Miscellaneous Notes * Telephone Encounter - Ck Peraza, DADA - 01/18/2025 4:10 PM EST Home Nutrition Support Service Call to pt re: continued drop on phos, now down to 1.2. Pt denies missing any PN (though only on 3 days/week). Pt reports now feeling much more fatigued and experiencing some Shortness of Breath. Discussed that safest option for pt is to report to ED for evaluation and phos repletion. Pt expressed understanding and states she will go to a [facility] ED. Rec: pt to report to ED for evaluation and phos repletion - Increase phos in PN as well Ck Peraza RD, LD, CNSC documented in this encounter Plan of Treatment DateTypeDepartmentCare Team (Latest Contact Info)Ihksskpocyg78/10/2025 9:45 AM ESTInfusion Center Hematology/Oncology [address] [place] [address] [place] [address] LABS03/09/2025 2:00 PM ESTOffice Visit Gastroenterology [address] [place] [phone] Georgina Barkley MD [facility] [address] [address] CGRT / No RD availabledocumented as of this encounter Goals GoalPatient Goal TypeAssociated ProblemsRecent ProgressPatient-Stated?Author Blood Pressure < 140/90 Blood Pufpprym905/70(09/29/2024 10:45 AM EDT)NoHannah Devlin, MDdocumented as of this encounter Visit Diagnoses Not on filedocumented in this encounter Care Teams Team MemberRelationshipSpecialtyStart DateEnd Thomas Alas MD [address] [place] [address] PCP - GeneralFamily Medicine07/30/23 Antelmo Davey MD [address] [place] [address] 09/25/19 [place] [address] [place] [address] ConsultingGeneral Surgery09/25/19 SladeShanna slater CNP [address] [place] [address] ReferringFamily Medicine10/19/19 Tj Najera PA [address] [place] [address] ReferringFamily Medicine05/13/22 Georgina Barkley MD [address] [place] [address] Home Parenteral Nutrition ProviderGastroenterology10/14/23documented as of this encounter
--- OUTSIDE RECORDS SUMMARY | 2025-01-22 23:25 | XMS_ITS | Encounter Summary ---
Author Organization [facility] Address [address] [place] [address] Care Team Providers Care Senior Commissary Agent Name Role Phone Antelmo Davey MD Unavailable [phone] Deacon Valladares MD Unavailable Shanna June CNP Unavailable [phone] Tj Najera Unavailable Unavailable Thomas Alas MD Primary Care Provider [phone] Georgina Barkley MD Unavailable [phone] Source Comments In the event this information is protected by the Federal Confidentiality of Alcohol and Drug AbusePatient Records regulations: The Federal rules restrict any use of the information to criminally investigate or prosecute any alcohol or drug abuse patient.[facility] Encounter Details DateTypeDepartmentCare Team (Latest Contact Info)Gifkdyjhhga32/29/2025Travel Social History Tobacco UseTypesPacks/DayYears UsedDateSmoking Tobacco: NeverSmokeless Tobacco: NeverAlcohol UseStandard Drinks/WeekCommentsNot Currently0 (1 standard drink = 0.6 oz pure alcohol)[facility] UtilitiesAnswerDate RecordedIn the past 12 months has the electric, gas, oil, or water [employer] threatened to shut off services in your home?No09/21/2024Social Connection and Isolation PanelAnswerDate RecordedIn a typical week, how many times do you talk on the phone with family, friends, or neighbors?More than three times a week10/28/2022How often do you get together with friends or relatives?Once a week10/28/2022How often do you attend congregation or anabaptism services?1 to 4 times per year10/28/2022o you belong to any clubs or organizations such as congregation groups, unions, fraternal or athletic groups, or [...] housing, medical care, and heating?Hard12/06/2022HQ-2 AnswerDate RecordedPHQ-2 dlhyk71003/15/2024Finhe[facility] [place] of Occupational Health - Occupational Stress QuestionnaireAnswerDate RecordedDo you feel stress - tense, restless, nervous, or anxious, or unable to sleep at night because your mind is troubled all the time - these days?To some tigbhb6110/28/2022Exercise Vital SignAnswerDate RecordedOn average, how many days [...] to sleep or slept in [facility]hel[facility] (including now)?No 08/08/2023Housing Stability Vital SignAnswerDate RecordedIn the last 12 months, was there a time when you were not able to pay the mortgage or rent on time?No 09/21/2024Number of Times Moved in the Last YearNot on file09/21/2024t any time in the past 12 months, were you homeless or living in a nursing home (including now)? No09/21/2024rea Deprivation IndexAnswerDate RecordedNational Score (1-100), lower number is lower xdme533006/17/2022State Score (1-10), lower number is lower lwyo4303Data from: https://www.neighborhoodatlas.medicine.[facility].edu/. Last address used for [address] [address]EducationAnswerDate RecordedWhat is the highest level of school you have completed or the highest degree you have received?Master's degree (e.g., MA, MS, Birgit, MEd, BAKERY MACHINE MECHANIC SUPERVISOR, IVANIA) 10/15/2019CommentsNoSex and Gender InformationValueDate RecordedSex Assigned at BirthNot on fileLegal VsrKpoxxu01/02/2012 10:06 AM ESTGender IdentityNot on fileSexual OrientationNot on fileOccupationIndustryJob Start Date Job End DateteacherNot on fileNot on fileNot on filedocumented as of this encounter Functional Status * Are you deaf or do you have serious difficulty hearing?AnswerDate of CretormdklVzmjmcHw37/12/2025 3:21 PM Priscila Trinidad RN * Are you blind or do you have serious difficulty seeing, even when wearing glasses?AnswerDate of JgoeyyibkoElfxuyRb42/12/2025 3:21 PM Priscila Trinidad RN * Do you have serious difficulty walking or climbing stairs?AnswerDate of AsdcqfohfzDdhhgbWd53/12/2025 3:21 PM Priscila Trinidad RN * Do you have difficulty dressing or bathing?AnswerDate of AssessmentAuthorNo 09/26/2024 3:21 PM Priscila Trinidad RN * Because of a physical, mental, or emotional condition, do you have difficulty doing errands alone such as visiting a doctor's office or shopping?AnswerDate of MvbbphmmvzQrorgbHv10/12/2025 3:21 PM Priscila Trinidad RN documented as of this encounter Mental Status * Because of a physical, mental, or emotional condition, do you have serious difficulty concentrating, remembering, or making decisions?AnswerEntry Date NigzhtBo93/12/2025 3:21 PM Priscila Trinidad RN documented in this encounter Plan of Treatment DateTypeDepartmentCare Team (Latest Contact Info)Pzhfutygrwq75/10/2025 9:45 AM ESTInfusion Center Hematology/Oncology [address] [place] [address] [place] [address] LABS03/09/2025 2:00 PM ESTOffice Visit Gastroenterology [address] [place] [address] Georgina Barkley MD [facility] [address] [place] [address] CGRT / No RD availabledocumented as of this encounter Goals GoalPatient Goal TypeAssociated ProblemsRecent ProgressPatient-Stated?Author Blood Pressure < 140/90 Blood Fpmnywui611/70(09/29/2024 10:45 AM EDT)AnniaYohanaHannah morrison, MDdocumented as of this encounter Visit Diagnoses Not on filedocumented in this encounter Care Teams Team MemberRelationshipSpecialtyStart Date Thomas Alas MD [address] [place] [address] PCP - GeneralFamily Medicine07/30/23 Antelmo Davey MD [address] [place] [address] 09/25/19 [place] [address] [place] [address] ConsultingGeneral Surgery09/25/19 Shanna June CNP [address] [place] [address] ReferringFamily Medicine10/19/19 Tj Najera PA [address] [place] [address] ReferringFamily Medicine05/13/22 Georgina Barkley MD [address] [place] [address] Home Parenteral Nutrition ProviderGastroenterology10/14/23documented as of this encounter
--- OUTSIDE RECORDS SUMMARY | 2025-01-22 23:26 | XMS_ITS | Clinical Summary ---
Author Organization [facility] Address [address] [place] [address] Phone Care Team Providers Care Campus Recruiting Coordinator Name Role Phone Generic Provider, No Assigned [...] mouth once daily at bedtime. 30 MG DFCYEFFBV31/26/2023 Active polyethylene glycol (Glycolax, Miralax) 17 gram/dose [...] pain06/30/2023cute renal failure superimposed on chronic kidney owrdcve0406/29/20238609Malvvgwhnub21/14/2024Heart zbgatdo9506/29/2023bdominal pain03/16/2023Nausea and mjnrhjei25/19/2024OSA (obstructive sleep apnea)03/05/20234055Rgdcqn86/19/2952Xeqfamz10/19/2024 Dgalwwliynxqdf35/19/7084Kocdtnmrzy28/19/2024Median arcuate ligament syndrome 02/18/2023 Family History Medical HistoryRelationNameCommentsAsthmaBrotherTom ArtinoCOPDMaternal GrandfatherCharles HumesCancerMaternal [...] RecordedIn the past 12 months has the [employer], gas, oil, or water [employer] threatened to shut off services in your [...] relatives?Twice a week06/30/2023How often do you attend congregation or mandaeism services?More than 4 times per year06/30/2023o you [...] heating?Not hard at all06/30/2023HQ-2AnswerDate RecordedPatient Health Questionnaire-2 Wyzsv653[facility] [place] of Occupational Health - Occupational Stress QuestionnaireAnswerDate [...] steady place to sleep or slept in [place] (including now)?No 06/30/2023UDIT-CAnswerDate RecordedQ1: How often do you have a drink containing alcohol?Never10/09/2024Q2: How many drinks containing alcohol do you have on a typical day when you are drinking?Patient does not drink10/09/2024Q3: How often do you have six or more drinks on one occasion?Never10/09/2024Comments UnknownSex and Gender InformationValueDate RecordedSex Assigned at BirthFemale 02/23/2023 4:19 AM ESTLegal KccMcraow52/26/2022 6:26 PM ESTGender IdentityFemale 03/02/2023 2:54 PM ESTSexual OujpxdsqthaBqrqshrn64/16/2024 2:54 PM EST Last Filed Vital Signs Vital SignReadingTime TakenCommentsBlood Uddktkav45/57007/03/2023 7:00 AM EDT Bjecv16212/18/2024 7:00 AM GFOLxkvhdcehwx70 ??C (98.6 ??F)07/03/2023 7:00 AM EDT Respiratory Pofb847007/03/2023 7:00 AM EDTOxygen Sjtvpfzftq677%07/03/2023 7:00 AM EDTInhaled Oxygen Concentration--Vmklfl26.2 kg (168 lb)06/29/2023 6:16 PM EDT Tlnycb006.6 cm (5' 6 )06/29/2023 6:16 PM EDTBody Mass Index27.12006/29/2023 6:16 PM EDT Plan of Treatment Health MaintenanceDue DateLast IuyiKbquaoucAoyszrmghfvhxf74/17/1990HIV Screening 1989Lipid Panel1989Yearly Adult Gujwjdfd65/17/1990MMR Vaccines (1 of 1 - Standard series)1990Hepatitis C Egkdxibjj40/17/2008Hepatitis A Vaccines (1 of 2 - Risk 2-dose series)2008Hepatitis B Vaccines (1 of 3 - 19+ 3-dose series)2008Pneumococcal Vaccine: Pediatrics and At-Risk Adult Patients (1 of 2 - PCV)2008Zoster Vaccines (1 of 2)2008HPV/Cotest 2010HPV Vaccines (1 - Risk 3-dose Standard series)2016COVID-19 Vaccine (2 - Woo risk series)07/21/184447/1Cervical Cancer Screening 4Pap Smear04//980995/07/2020TSH Level09//249087/3Creatinine Level/, 07/01/2023, 06/30/2023, Additional history exists Potassium Level07/01//, 07/01/2023, 06/30/2023, Additional history existsInfluenza Vaccine (#1)509/, 11/16/2021, 01/01/2021, Additional history existsDiabetes Ruzelwbis89/06/561601/07/2024, 08/19/2024, 08/18/2024, Additional history existsDTaP/Tdap/Td Vaccines (2 [...] ImplantedTypeAreaManufacturerDevice IdentifierShelf Expiration DateModel / Serial / Kylie Rome, 5 X 6 In - [id number] Implanted:Qty: 1 on 03/05/2023 by [facility]ImplantN/A: AbdomenBAATRIUM HEALTH WAKE FOREST BAPTIST LEXINGTON MEDICAL [id number] / / [id number] Procedures Procedure NamePriorityDate/TimeAssociated DiagnosisCommentsPOCT GLUCOSERoutine 07/03/2023 7:17 AM EDT RENAL FUNCTION YNAYGWiujuei98/17/2024 6:47 AM EDT from Last 3 Months or Most Recently Relevant to Health Maintenance Results * (ABNORMAL) POCT GLUCOSE (07/03/2023 7:17 AM EDT)ComponentValueRef RangeTest MethodAnalysis TimePerformed AtPathologist SignaturePOCT Wuqfpmf511(H)74 - 99 mg/dL07/03/2023 7:24 AM [facility] LABSpecimen (Source) Anatomical Location / LateralityCollection Method / VolumeCollection Time Received TimeBloodCapillary blood specimen / Pnwqmjl9107/03/2023 7:17 AM EDT 07/03/2023 7:24 AM EDT Narrative Authorizing ProviderResult TypeResult StatusCyntsandee ROBLERO POINT OF CARE TEST DOCKED DEVICE UNSOLICITED RESULTSFinal ResultPerforming OrganizationAddress City/State/ZIP CodePhone Number [facility] [address] [place] [address] * (ABNORMAL) Renal Function Panel (07/02/2023 6:47 AM EDT)ComponentValueRef RangeTest MethodAnalysis TimePerformed AtPathologist YfipnzezkGhzsgyx193(H)65 - 99 mg/dL07/02/2023 7:53 AM [facility] YUDDvbktd200097 - 145 mmol/L07/02/2023 7:53 AM [facility] LABPotassium3.93.4 - 5.1 mmol/L07/02/2023 7:53 AM [facility] FTTHbrifylj69455 - 107 mmol/L07/02/2023 7:53 AM [facility] JPODfvudiyyfok06(L)24 - 31 mmol/L07/02/2023 7:53 AM [facility] LABUrea Fotuluga270 - 25 mg/dL07/02/2023 7:53 AM [facility] LABCreatinine0.700.40 - 1.60 mg/dL07/02/2023 7:53 AM [facility] LABeGFR>90>60 mL/min/1.73m*2 07/02/2023 7:53 AM [facility] LABComment: Calculations of estimated GFR are performed using the 2020 CKD-EPI Study Refit equation without therace variable for the IDMS-Traceable creatinine methods. https://jasn.asnjournals.org/content///ASN.7281296253 Calcium8.68.5 - 10.4 mg/dL07/02/2023 7:53 AM [facility] Phosphorus4.02.5 - 4.5 mg/dL07/02/2023 7:53 AM [facility] Albumin4.03.5 - 5.0 g/dL07/02/2023 7:53 AM [facility] LABAnion Gap 11<=19 mmol/L07/02/2023 7:53 AM [facility] LABSpecimen (Source) Anatomical Location / LateralityCollection Method / VolumeCollection Time Received TimeBloodVenous blood specimen / Oslwtih7307/02/2023 6:47 AM EDT 07/02/2023 6:58 AM EDT Narrative Authorizing ProviderResult TypeResult StatusOludatelma ROBLERO BLOOD ORDERABLESFinal ResultPerforming OrganizationAddressCity/State/ZIP CodePhone Number [facility] [address] [place] [address] from Last 3 Months or Most Recently Relevant to Health Maintenance Insurance Advance Directives For more information, please contact: [phone] (Available ) * Full Code (Latest Code Status on File) Date ActivatedDate InactivatedComments03/05/2023 2:37 PMQuestionAnswerComments Plan of Care:* Code Status Discussion Completed Decision Maker:* Patient Care Teams Team MemberRelationshipSpecialtyStart DateEnd Date Generic Provider, No Assigned P[place], [place] [address] PCP - GeneralGeneral Practice06/29/23
--- OUTSIDE RECORDS SUMMARY | 2025-01-22 23:26 | XMS_ITS ---
Author Organization [facility] Address [address] [place] [address] Care Team Providers Care Dental Services Director Name Role Phone Thomas Alas MD Primary Care Provider [phone] Vicky Cardenas RN Unavailable Unavailable Active Problems ProblemNoted DateDiagnosed DatePartial bowel rdhomdcfapw93/02/2025Obstructed internal ubgqmn5812/17/2024bnormal thyroid blood test12/05/2024llergic oiamhymdetttzc94/21/8508Hmzwibwe98/21/2025 Overview (12/05/2024): Problem List clean-up per request of Phys. EHR Cmte Edema12/05/20245820Izxpjocgkgsm55/21/6650Xhphtbmgcow84/21/2025Otitis media of left ear12/05/2024Postgastric surgery ysemonuq55/21/3480Uetdlktxp82/21/2025 Overview (12/05/2024): Problem List clean-up per request of Phys. EHR Cmte Common bile duct fmrmnjziur68/02/2025 Assessment & Plan (11/16/2024 2:13 AM EDT): CT chest/abd/pelvis noted CBD dilation and apperance of complex inflammatory changes. Patient has required multiple doses of opiates and antiemetics to control symptoms. Request to transfer to the [facility] where much of her advanced care has been provided with Specific concern that she may need ERCP/advanced endoscopy to further evaluation Pain management GI consult Disorder of endocrine avyfsv7111/09/2024Lumbar qlfazoncsktaa22/25/2025Migraine 11/09/2024Severe protein-calorie malnutrition ([place]: less than 60% of standard weight)11/09/2024Pseudoaneurysm of right femoral obhpvb6311/09/2024 Assessment & Plan (11/12/2024 12:39 PM EDT): [...] pseudoaneurysm 11/02 -stable - follow Hgb Myocardial zuxzea2911/09/2024 Assessment & Plan (11/12/2024 12:39 PM EDT): [...] need to uptitrate verapamil if BP allows Flxyqmga53/18/2025Chest pain10/30/2024 Assessment & Plan (11/16/2024 2:13 AM [...] without complication, without long-term current use of gfucfyo5610/30/2024 Assessment & Plan (11/12/2024 12:39 PM EDT): [...] at home, will begin ISS, ACHS Primary gxvfvkbytsoe32/15/2025Other dcuovplxiixjnn82/15/3152Bimhax01/15/2025 Assessment & Plan (11/02/2024 1:29 PM EDT): [...] Stable, last BM yesterday Median arcuate ligament kekpuiar85/15/2025 Assessment & Plan (11/12/2024 12:39 PM EDT): [...] and then MALS release S/P laparoscopic sleeve /15/2025 Assessment & Plan (11/12/2024 12:39 PM EDT): [...] 9:00 PM EDT): - Stable Protein calorie gvfzmsbcxtsy76/15/2025 Assessment & Plan (11/02/2024 1:29 PM EDT): [...] pain today patient brought urgently back to [employer] Assessment & Plan (11/01/2024 11:57 AM EDT): [...] -Pending TTE, cath Spontaneous dissection of coronary sqmmkx2110/30/2024 Assessment & Plan (11/12/2024 12:39 PM EDT): [...] pain today patient brought urgently back to [employer] Feeding ndvranzpsljt30/09/2025roken central line09/21/2024Long term (current) use of opiate qrwqdljep99/07/2025Poor response to enteral ictwoqtgg69/28/2025 Sepsis due to Vgudkjhfqp77/04/2025 Assessment & Plan (08/19/2024 1:03 PM EDT): - source is likely the cellulitis around the J-tube status post J-tube removal. - CT scan from [facility] showing no abscess. - Infectious disease recommendations appreciated, continue with ceftriaxone. - Repeat blood cultures on 08/16: NGTD - central line in place, does not look like infected, continue monitoring, central line care. Assessment & Plan (08/18/2024 12:20 PM EDT): - source is likely the cellulitis around the J-tube status post J-tube removal. - CT scan from [facility] showing no abscess. - Infectious disease recommendations appreciated, continue with ceftriaxone. - Repeat blood cultures on 08/16: NGTD - central line in place, does not look like infected, continue monitoring, central line care. Sepsis due to Dywhgiyfjeem69/04/2025 Assessment & Plan (08/19/2024 1:03 PM EDT): - source is likely the cellulitis around the J-tube status post J-tube removal. - CT scan from [facility] showing no abscess. - Infectious disease recommendations appreciated, continue with ceftriaxone. - Repeat blood cultures on 08/16: NGTD - central line in place, does not look like infected, continue monitoring, central line care. Assessment & Plan (08/18/2024 12:20 PM EDT): - source is likely the cellulitis around the J-tube status post J-tube removal. - CT scan from [facility] showing no abscess. - Infectious disease recommendations appreciated, continue with ceftriaxone. - Repeat blood cultures on 08/16: NGTD - central line in place, does not look like infected, continue monitoring, central line care. Hbaeteyustjad63/04/2025 Assessment & Plan (11/12/2024 12:39 PM EDT): [...] admission. - As needed antiemetics Chronic pain zjfmeuvr46/04/2025 Assessment & Plan (11/12/2024 12:39 PM EDT): [...] and scheduled tramadol. Continue with as needed [place]. Assessment & Plan (08/18/2024 12:20 PM EDT): - continue with home meds including fentanyl patch and scheduled tramadol. Continue with as needed [place]. 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 Assessment & Plan (08/18/2024 12:20 PM EDT): - status postresection. History of adrenal kvxzwhixtzkay94/04/2025 Assessment & Plan (11/12/2024 12:39 PM EDT): [...] PM EDT): - continue with dexamethasone Acquired ywraqgkjrcreth05/04/2025 Assessment & Plan (11/16/2024 2:13 AM EDT): [...] 12:20 PM EDT): - continue with levothyroxine. Ulqwrzjgrckxdb88/03/2025 Assessment & Plan (11/12/2024 12:39 PM EDT): [...] well as other thyroid function testing Morbid bycjdgw6708/17/2024 Assessment & Plan (08/19/2024 1:03 PM EDT): [...] daily DVT prophylaxis is VTE protocols per [facility] GI prophy Protonix Monitor labs) Obtain blood cultures Comments IV Vanco and cefepime Consult infectious diseases Early ambulation I discussed the plan of care with the patient and she is in agreement. Sqyeojcbbu54/02/2025 Assessment & Plan (08/17/2024 1:27 AM EDT): -Unclear blood cultures - Commence patient on Vanco/cefepime - Monitor patient blood cultures - Also evaluate lab tests and correct abnormalities - Consult infectious disease - Obtain 2D echocardiogram History of laparoscopic wxbelzvbwxevslr03/25/2025hronic, continuous use of fvsfklh5204/11/2024Starvation xfqmsfckeoqh51/25/2025Intestinal wxckgibcb13/07/2024 Screening for diabetes mellitus (DM)01/22/2024History of small bowel obstruction 01/21/2024Impaired intestinal hqqtgkdcin89/18/4471Akrts34/25/2024urrent use of steroid neljisoucz73/21/2024ommunity acquired pneumonia of left lower lobe of lung08/07/2023Idiopathic upaocmdbokr55/21/2024spiration pneumonia of left lower lobe due to vomit08/04/2023Syncope and drssoohk67/19/2024Heart kgfxynt6106/29/2023 Acute renal failure superimposed on chronic kidney cqslaqj0506/29/2023Hypokalemia 06/29/2023ecreased oral bvjoll2105/25/20238073Lcztlrkpwjzjxr11/19/2024nxiety and vyyfuhsemx92/23/2023Feeding wwkjata1512/07/2022Therapeutic drug monitoring 12/07/20223165Xmdsfgsbcgh91/12/2023ilious vomiting with eswibz1010/28/2022Intractable vomiting with ivdwhu3910/25/20227647Jdpefn01/20/2023 Overview (11/09/2024): Takes Pro FE daily. Last Assessment & Plan: Assessment: iron infusions ~1 month ago Acute pain of right knee08/04/2022all stone08/04/2022Internal derangement of right wcavatll93/20/2023Mixed incontinence urge and nyhlyv4408/04/2022Other specified noninflammatory disorders of daluzl6208/04/2022atellofemoral pain syndrome of right knee08/04/2022Right flank pain08/04/2022Vaginal pain08/04/2022 Rash and nonspecific skin xaomqwcs23/07/2023History of Isabel-en-Y gastric bypass 06/24/2022ipolar /07/2023astric xpuosr2501/29/2022Iron deficiency updosk5311/01/2021Ventral hernia without obstruction or ikfynyrn80/27/2022 Overview (12/05/2024): Last Assessment & Plan: Assessment: will have surgery Calculus of azxrws7003/10/2021bnormal finding on imaging of liver04/07/2020 Moderate recurrent major rzafrhvgjy03/18/2020Situational vjvmrs6501/03/2020Panic disorder without hyqqhzklgss43/06/2020Trauma and stressor-related disorder 11/21/2019Duodenogastric reflux of bile11/16/20191954Qhhinl33/10/2020Preoperative ibbbdirbodi28/10/2020Regurgitation of food09/25/2019Laryngopharyngeal reflux 10/07/2018Obstructive sleep apnea baluokiw25/23/2019 Overview (12/05/2024): wears mask every night Lnlwpfoayxfovh92/20/2019Reactive fltkumjmvnqu04/19/2019Chronic fatigue syndrome 09/19/2018Iron /05/2019Vitamin D mhxvlyxjvj99/05/2019Insomnia 09/15/2018Maltracking of right tcwjdht1606/27/2018Chondromalacia of patella, right 05/30/2018Arthritis of right knee05/30/201839 weeks gestation of 11/23/2016PCOS (polycystic ovarian syndrome)10/02/2013 Overview (11/09/2024): Last Assessment & Plan: Assessment: monitored per PCP Current Treatment and Therapy Plans No current plan information found. Past Treatment and Therapy Plans No past plan information found. Lifetime Dose Tracking * ChemicalLifetime DoseAutomatic EntryManual EntryFluoro Time1,946.2 minutes0 minutes1,946.2 minutesAir Kerma1,280 mGy0 mGy1,280 mGyDose Area Srzwham669,543 mGy-cm20 mGy-cm0516,543 mGy-cm2
--- OUTSIDE RECORDS SUMMARY | 2025-01-22 23:26 | XMS_ITS | Clinical Summary ---
Author Organization [facility] Address [address] [place] [address] Care Team Providers [facility] Specialist Name Role Phone Antelmo Davey MD Unavailable Deacon Valladares MD Unavailable Shanna June PHYSICIAN OBSTETRICIAN Unavailable [phone] Tj Najera Unavailable Unavailable Thomas Alas MD Primary Care Provider [phone] Marissa Barkley MD Unavailable [phone] Allergies Active AllergyReactionsCriticalityNoted DateCommentsAdhesive Tape-Silicones LumehifbmpwVnvvlv50/23/2020 Sensitive to certain adhesive tapes. Redness and itchy. CodeineGI BkqvaRhcmdm81/19/2020Nsaids (Non-Steroidal Anti-Inflammatory Drug) Contraindication-Medical Zrkudvzs23/15/2022 S/p RYGB Medications * This document contains information received from the source organization and may not represent a complete record from that organization. MedicationSigDispense QuantityRefillsLast FilledStart DateEnd DateStatus liothyronine (CYTOMEL) 5 mcg tablet Take 5 mcg by mouth once daily.09/11/2019Active topiramate (TOPAMAX) 100 mg tablet Take 100 mg by mouth two times a day.Active fluticasone-salmeterol (ADVAIR DISKUS) 100-50 mcg/dose inhaler Inhale 1 Puff as instructed every 12 hours.2Active docusate sodium (COLACE) 100 mg capsule Take 1 capsule by mouth two times a day as needed for constipation.06/09/2023 Active levothyroxine (SYNTHROID) 75 mcg tablet Indications:Hypothyroidism, unspecified typeTake 1 tablet by mouth once daily. 90 tablet 06/09/2023ctive prochlorperazine (COMPAZINE) 10 mg tablet Take 1 tablet by mouth every 6 hours as needed for nausea/vomiting. 15 tablet 06/18/2023ctive methocarbamol (ROBAXIN) 750 mg tablet Take 750 mg by mouth three times a day.Active acetaminophen 325 mg-caffeine 40 mg-butalbital 50 mg (FIORICET) per tablet Take 1 tablet by mouth every 4 hours as needed for headache.06/17/2023ctive albuterol HFA (PROVENTIL HFA, VENTOLIN HFA) 90 mcg/actuation inhaler Inhale 2 Puffs as instructed every 4 hours as needed for wheezing/shortness of breath. 1 Each 08/08/2023ctive ondansetron orally disintegrating (ZOFRAN ODT) 8 mg disintegrating tablet Take 1 tablet by mouth every 8 hours as needed for nausea/vomiting. 20 tablet 09/12/2023ctive Miscellaneous Medical Supply kit 1 Each every 2 weeks. [employer] MiniOne Button ENFit feeding extension set: 12 inch right angle - Ref # [id number] 12 inch straight angle - Ref # [id number] 1 Kit ctive flash glucose scanning reader (FREESTYLE VÍCTOR 2 READER) Indications:Steroid-induced hyperglycemiaCheck sugar four times a day 1 Each 11/24/2023ctive flash glucose sensor (FREESTYLE VÍCTOR 2 SENSOR) kit Indications:Steroid-induced hyperglycemiaCheck sugar four times a day 6 Each ctive polyethylene glycol 3350 17 gram packet Take 1 Packet by mouth once daily. Dissolve dose in 4 - 8 ounces of liquid and take as directed.12/04/2023ctive Additional Information Patient taking differently:17 g ORALEVERY 48 HOURS, Dissolve dose in 4 - 8 ounces of liquid and take as directed., Reported on 09/29/2024 nut.tx.impaired digest fxn (PEPTAMEN 1.5) 0.068 gram- 1.5 kcal/mL 45 mL/hr by FEEDING TUBE route once daily. Start at 10 ml/hr and adv as tolerated. Eventual goal 45ml/hr x 22 hrs (hold 1 hr before and after giving synthroid) to provide 1000mL/day or 4 tetrapacks per day 96265 mL 4Active omeprazole (PRILOSEC) 40 mg capsule Take 1 capsule by mouth two times a day. 180 capsule 5Active HYDROcodone-acetaminophen (NORCO) 5-325 mg per tablet Take 1-2 tablets by mouth every 6 hours as needed for pain.0Active fentaNYL (DURAGESIC) 25 mcg/hr Apply 1 patch as directed every 72 hours. Do not cut patch. 37mcg/hr rxa9Nsfyku Syringe with Needle, Disp, (BD LUER-LENY SYRINGE) 3 mL 25 x 1 1/2 use to draw up as needed (with solucortef for adrenal crisis). 100 Each 04/13/2024 3:18 PM EST5Active SOLU-CORTEF, PF, ACT-O-VIAL 100 mg/2 mL solr Inject 2 mL intramuscularly as needed for adrenal crisis. 6 mL 3:18 PM EST5Active Needle, Disp, 25 G (BD PRECISIONGLIDE) 25 gauge x 1 ndle use to administer solu-cortef in event of adrenal crisis 100 Each 04/13/2024 3:18 PM EST5Active hydrocortisone (CORTEF) 10 mg tablet Indications:ACI (adrenal cortical insufficiency) (HCC)Take 1 tablet by mouth once daily. Double dose during illness for 3 days 90 tablet 5Active metoclopramide HCl (REGLAN) 10 mg tablet Take 10 mg by mouth before meals and at bedtime.Active traMADol (ULTRAM) 50 mg tablet Take 50 mg by mouth four times a day as needed for pain.Active ergocalciferol 50,000 unit capsule (VITAMIN D2, DRISDOL) Indications:Vitamin D deficiencyTAKE 1 CAPSULE BY MOUTH ONE TIME A WEEK. 12 capsule 5Active prucalopride 2 mg tablet (MOTEGRITY) Take 1 tablet by mouth once daily. 30 tablet 5Active hydrOXYzine HCl (ATARAX) 25 mg tablet Indications:Generalized anxiety disorderTAKE 1 TABLET BY MOUTH TWO TIMES A DAY NEEDED. FOR ANXIETY 180 tablet 109/5Active mirtazapine (REMERON) 45 mg tablet Indications:Generalized anxiety disorder,Major depressive disorder, recurrent episode, moderate (HCC),Drug-induced insomnia (HCC)Take 1 tablet by mouth daily at bedtime. 30 tablet 511//6Active escitalopram oxalate (LEXAPRO) 20 mg tablet Indications:Generalized anxiety disorder,Major depressive disorder, recurrent episode, moderate (HCC)TAKE 1 TABLET BY MOUTH EVERY DAY 90 tablet 1115Active traZODone (DESYREL) 100 mg tablet Indications:Generalized anxiety disorder,Major depressive disorder, recurrent episode, moderate (HCC),Drug-induced insomnia (HCC)Take 1 tablet by mouth daily at bedtime. 30 tablet 512/6Active escitalopram oxalate (LEXAPRO) 20 mg tablet Indications:Generalized anxiety disorder,Major depressive disorder, recurrent episode, moderate (HCC)Take 1 tablet by mouth once daily. 30 tablet Discontinued mirtazapine (REMERON) 45 mg tablet Indications:Generalized anxiety disorder,Major depressive disorder, recurrent episode, moderate (HCC),Drug-induced insomnia (HCC)Take 1 tablet by mouth daily at bedtime. 30 tablet Discontinued traZODone (DESYREL) 100 mg tablet Indications:Generalized anxiety disorder,Major depressive disorder, recurrent episode, moderate (HCC),Drug-induced insomnia (HCC)Take 1 tablet by mouth daily at bedtime. 30 tablet Discontinued Active Problems ProblemNoted DateDiagnosed DateFeeding riemasnetlai08/09/2025roken central line 09/21/2024Long term (current) use of opiate bhtzebzld05/07/2025Poor response to enteral givbokguf75/28/1518Jrkitlxdkqng49/25/2025Starvation ketoacidosis 04/11/2024hronic pain04/11/2024hronic, continuous use of hijckfg7304/11/2024 History of laparoscopic rctulsjweidmxym85/25/2025Hx of abdominal surgery 04/11/2024Intestinal vayfsdmrw74/07/2024Screening for diabetes mellitus (DM) 01/22/2024History of small bowel ixrqpunamzv46/06/2024Impaired intestinal /18/1353Yfxor24/25/2024urrent use of steroid vjzicyqjad54/21/2024 Assessment & Plan (10/06/2023 4:11 PM EDT): Assessment: Daily prednisone for Hives, Follows with PCP Community acquired pneumonia of left lower lobe of lung08/07/2023LUQ pain 08/07/2023Idiopathic qdjmsrgoxil94/21/2024 Assessment & Plan (10/06/2023 4:01 PM EDT): Assessment: Stable with midodrine (PROAMATINE) , follows with PCP. Chronic abdominal pain08/05/2023 Assessment & Plan (10/06/2023 4:10 PM EDT): Assessment: Managed with Ketamine nasal spray Pt. will not take on DOS Aspiration pneumonia of left lower lobe due to vomit08/04/2023Syncope and xbkcpatn00/19/2024Jejunostomy tube tvemtvu1506/07/2023 Assessment & Plan (10/06/2023 4:07 PM EDT): Assessment: Noted, gives self boluses of water throughout day. PEG (percutaneous endoscopic gastrostomy) pbldow1906/07/2023ecreased oral intake 05/25/2023Median arcuate ligament ewgxfsfl30/04/2024eliac artery compression movuumpk90/14/2023On peripheral parenteral nutrition (ppn)12/08/2022On total parenteral nutrition (TPN)12/07/2022 Assessment & Plan (10/06/2023 4:05 PM EDT): Assessment: At night. Aware to Hold after MN Therapeutic drug bqlzqabyjc78/23/2023nxiety and lsmpsniyrl06/23/2023 Assessment & Plan (10/06/2023 4:08 PM EDT): Assessment: Pt. reports mood is stable with medication Rqqzfeqdevg48/12/2023ain, iebvhgpeu98/03/2023Dysfunction of sphincter of Oddi 11/06/2022ilious vomiting with ukfbxg0510/28/2022ariatric surgery status 10/26/2022 Assessment & Plan (10/06/2023 4:06 PM EDT): Assessment: Has had 100 lb weight loss efforts supported Nausea and aaomiatj47/10/2023 Assessment & Plan (10/25/2022 3:22 PM EDT): See above Acquired nimtejghykufqw68/10/2023 Assessment & Plan (10/06/2023 4:07 PM EDT): Assessment: Stable with medications, follows with Endocrinology . Assessment & Plan (10/25/2022 3:22 PM EDT): Assessment: Stable issue On Synthroid PLAN: Continue current management TSH in am Peptic ulcer fnfjikm8610/25/2022 Assessment & Plan (10/25/2022 3:25 PM EDT): See above History of Isabel-en-Y gastric gnfuwp8506/24/2022Renal stone06/24/2022astric reflux 01/29/2022ONV (postoperative nausea and vomiting)01/29/2022 Assessment & Plan (10/06/2023 4:03 PM EDT): Assessment: severe, Hx of aspiration pneumonia from current status Reports scopolamine patch works Anesthesia Considerations NPO p MN Iron deficiency qokbeb1511/01/2021Ventral hernia without obstruction or gangrene 03/13/2021 Assessment & Plan (03/13/2021 10:33 AM EST): Assessment: will have surgery History of sleeve yofrzavolqw18/22/2021 Assessment & Plan (06/24/2021 12:26 PM EDT): Assessment: 08/2020, down 50 lbs Dpzasx9208/21/2020 Assessment & Plan (10/06/2023 4:03 PM EDT): [...] cold weather Abnormal finding on imaging of liver04/07/2020Malnutrition of mild degree 04/06/2020Intractable upper abdominal pain04/05/2020GAD (generalized anxiety disorder)01/03/2020Moderate recurrent major gpndogouiv12/18/2020Situational dygcfd0501/03/2020Panic disorder without fonjvdlevag73/06/2020Trauma and stressor- related /06/2020Duodenogastric reflux of bile11/16/2019Malaise and nntanbf6010/06/2019Chronic bilateral low back pain without /21/2020 Vdldqzg8210/06/20193708Yadhhs58/10/2767Hjdjlsfgv65/10/2020Class 1 obesity without serious comorbidity with body mass index (BMI) of 33.0 to 33.9 in adult 09/25/2019 Assessment & Plan (03/13/2021 10:32 AM EST): Assessment: BMI 31.8 Assessment & Plan (08/21/2020 1:08 PM EDT): Assessment: BMI 38.74 Zbwrbbxgnxbt61/10/2020 Assessment & Plan (10/06/2023 4:00 PM EDT): Assessment: Assessment & Plan (03/13/2021 10:35 AM EST): Assessment: not on meds,monitored per PCP BP 141/70 pulse 62 Assessment & Plan (08/21/2020 1:09 PM EDT): Assessment: was on medication with 133/84 today Gastric ulcer02/15/2013 Assessment & Plan (03/13/2021 10:32 AM EST): [...] iron, most recent Hgb 11.9 Resolved Problems ProblemNoted DateDiagnosed DateResolved SpbmIxpqnn95/07/202508/acteremia /01/2025Intractable pain/Intractable abdominal pain/SBO (small bowel obstruction)/05/2023H/O gastric udjfzx68/Intractable nausea and djxivtrs53/22/2023 08/08/2023Sphincter of Oddi tjqkfuupyqt56/27/202309/RUQ pain11/05/2022 08/04/2023bdominal pain/ Assessment & Plan (10/25/2022 3:23 PM EDT): Assessment: Worsening symptoms of abdominal pain, N/V, inability to tolerate PO Unclear etiology, rule out PUD/gastritis CT showed no acute pathology Lipase normal PLAN: Symptomatic relief for pain and nausea as ordered Acid suppression NPO after midnight IVF Consult GI, consider EGD Nutrition consult Rash and nonspecific skin /History of sleep apnea History of PCOSonstipation06/21/2022 12/03/2023ipolar jtzmwwkz09Intractable nausea and vomiting /cute abdominal pain/10/20220278Hxqbwpn14/20/2021 11/29/2020bdominal painight upper quadrant abdominal pain Moderate episode of recurrent major depressive disorder /Back painObesity, Class II, BMI 35-39.9 Assessment & Plan (08/21/2020 1:12 PM EDT): Assessment: BMI 38.74 Regurgitation of foodreoperative bvltnvicqih69/10/2020 08/04/2023 Encounters * This document contains information received from the source organization and may not represent a complete record from that organization. DateTypeDepartmentCare ObeeEvekkyfijyh80/04/2025Telephone Gastroenterology [address] [address] Commissioner Of Officials, Hpn Results (Low phos)01/17/2025 9:30 AM [facility] Hematology/Oncology [address] [place] [address] [place] [address] On total parenteral nutrition (TPN); At risk for fluid and electrolyte imbalance; Anemia, unspecified type01/13/20257039Hdxcws52/19/2025Telephone Gastroenterology [address] [address] Commissioner Of Officials, Grupo Xhcdcqe1301/02/2025 9:15 AM [facility] Hematology/Oncology [address] [place] [address] [place] [address] On total parenteral nutrition (TPN); At risk for fluid and electrolyte imbalance; Anemia, unspecified type; Vitamin D hnzmhpwexm11/13/2025Telephone Gastroenterology [address] [address] Commissioner Of Officials, Grupo Hospital Admission (12/17/24-12/21/24)12/15/2024 Get Medical Advice General Surgery [address] [place] [address] Deacon Valladares MD J tube pouch12/12/2024 Patient [facility] Hematology/Oncology [address] [place] [address] [place] [address] Provider, Ccf Appointment Cancellation Vumtcia6812/12/2024 Patient Mdg Hematology/Oncology [address] [place] [address] [place] [address] Provider, Ccf Appointment Cancellation Hwrvphv4012/11/2024 Patient [facility] [address] [place] [address] Kathy Wagner, Research Coordinator Opportunity for Participation in a Bariatric Surgery Research Study12/11/2024 Telephone Gastroenterology [address] [address] Commissioner Of Officials, Grupo Patient Ikmnyf0012/04/2024 9:15 AM [facility] Hematology/Oncology [address] [place] [address] [place] [address] On total parenteral nutrition (TPN); At risk for fluid and electrolyte imbalance; Anemia, unspecified type11/30/2024 8:[address] [facility] Gastroenterology [address] [address] Marissa Barkley MD Intestinal vblfggl4311/30/2024Telephone Gastroenterology [address] [address] Commissioner Of Officials, Hpladi Patient Update (Clinic signout)11/30/20245482Odqfcq77/01/2025 Patient Msg Hematology/Oncology [address] [place] [address] [place] [address] Provider, Ccf Appointment Cancellation Aqmronh2111/14/2024Telephone [facility] Provider Adult [address] [place] [address] Xiomara Sepulveda MD Hospital To Bevjkcpn65/25/2025GI Preprocedure Call [facility] Endoscopy - ENDO [address] [place] [address] Deacon Valladares MD 11/08/2024Telephone Pre Anesthesia [address] [place] [address] Muna Bynum APRN.PHYSICIAN OBSTETRICIAN Appointment (NO SHOW)11/03/2024 Patient Msg [facility] Endoscopy - ENDO [address] [place], [place] [id number] Provider, Ccf EGD /19/2025 Patient Msg Pre Anesthesia [address] [place], [place] [id number] Provider, Ccf PACC Gjvkukbfuhv83/16/2025Telephone Pre Anesthesia [address] [place] [address] Sabina Azar PA 10/31/2024Telephone Pre Anesthesia [address] [place] [address] Muna Kolb LPN 10/31/2024Telephone Gastroenterology [address] [address] Commissioner Of Officials, Grupo Hospital Admission (10/30-11/07, , 11/15-)10/30/2024 9:15 AM [facility] Hematology/Oncology [address] [place] [address] [place] [address] On total parenteral nutrition (TPN); At risk for fluid and electrolyte imbalance; Anemia, unspecified type10/25/2024Telephone General Surgery [address] [place] [address] Deacon Valladares MD 10/24/2024Refill Gastroenterology [address] [address] Kasie Avalos MD Refill Jnuxshc3810/24/2024 Get Medical Advice General Surgery [address] [place] [address] Deacon Valladares MD Feeding tube10/24/20240328Revcgs57/08/2025 8:45 [facility] [address] [place] [address] [place] [address] On total parenteral nutrition (TPN); At risk for fluid and electrolyte imbalance; Anemia, unspecified typefrom Last 3 Months Immunizations ImmunizationAdministration DatesNext DueCOVID-19 vaccine (LYNNE)06/23/2020 influenza (IIV3) vaccine, trivalent (AFLURIA, FLULAVAL, FLUVIRIN, FLUZONE) 01/01/2021,11/28/2018influenza (IIV4) vaccine, age 6 mo - 64 yr, quadrivalent, PF (AFLURIA, FLUARIX, FLULAVAL, FLUZONE)11/12/2022,12/25/2020tetanus diphtheria pertussis (Tdap) vaccine, age 7+ yr (ADACEL, BOOSTRIX)09/21/2016 Family History Medical HistoryRelationCommentsHypertensionBrother 1ObesityBrother 1Hypertension Brother 2ObesityBrother 2HypertensionFatherDiabetesMotherHypertensionMother ObesityMotherRelationStatusCommentsBrother 1AliveBrother 2AliveFatherAliveMother Alive Social History Tobacco UseTypesPacks/DayYears UsedDateSmoking Tobacco: NeverSmokeless Tobacco: Never Tobacco Cessation:Counseling Given: Not Answered Alcohol UseStandard Drinks/WeekCommentsNot Currently0 (1 standard drink = 0.6 oz pure alcohol)[facility] UtilitiesAnswerDate RecordedIn the past 12 months has the timeplazza, gas, oil, or water [employer] threatened to shut off services in your home?No09/21/2024Social Connection and Isolation PanelAnswerDate RecordedIn a typical week, how many times do you talk on the phone with family, friends, or neighbors?More than three times a week10/28/2022How often do you get together with friends or relatives?Once a week10/28/2022How often do you attend congregational or judaism services?1 to 4 times per year10/28/2022o you belong to any clubs or organizations such as congregational groups, unions, fraternal [...] housing, medical care, and heating?Hard12/06/2022HQ-2 AnswerDate RecordedPHQ-2 wlooj91803/15/2024[facility] Occupational [facility] - Occupational Stress QuestionnaireAnswerDate RecordedDo you feel stress - tense, restless, nervous, or anxious, or unable to sleep at night because your mind is troubled all the time - these days?To some wjbggp3010/28/2022Exercise Vital SignAnswerDate RecordedOn average, how many days [...] or living in a jail (including now)? No09/21/2024rea Deprivation IndexAnswerDate RecordedNational Score (1-100), lower number is lower yogv692906/17/2022State Score (1-10), lower number is lower fpvv706ata from: https://www.neighborhoodatlas.medicine.[facility].edu/. Last address used for uc[address] [address]EducationAnswerDate RecordedWhat is the highest level of school you have completed or the highest degree you have received?Master's degree (e.g., MA, MS, Birgit, MEd, MOLD CONSTRUCTION SUPERVISOR, IVANIA) 10/15/2019CommentsNoSex and Gender InformationValueDate RecordedSex Assigned at BirthNot on fileLegal UhmHqzzrl34/02/2012 10:06 AM ESTGender IdentityNot on fileSexual OrientationNot on fileOccupationIndustryJob Start Date Job End DateteacherNot on fileNot on fileNot on file Last Filed Vital Signs Vital SignReadingTime TakenCommentsBlood Dtqvxqxe710/7008 10:45 AM EDT Zfsox0967 10:45 AM OXRIccgybpqzdk25.6 ??C (97.9 ??F)09/29/2024 10:15 AM EDTRespiratory Hdvq310809/29/2024 10:45 AM EDTOxygen Tktwcxywie15%09/29/2024 10:45 AM EDTInhaled Oxygen Concentration--Iwneph10 kg (180 lb 12.4 oz)09/26/2024 5:37 AM LTSFxzjby182.6 cm (5' 6 )09/20/2024 10:13 PM EDTBody Mass Index29.18 09/20/2024 10:13 PM EDT Plan of Treatment DateTypeDepartmentCare Team (Latest Contact Info)Gyneeeewccr85/10/2025 9:45 AM ESTInfusion Center Hematology/Oncology [address] [place] [address] [place] [address] LABS03/09/2025 2:00 PM ESTOffice Visit Gastroenterology [address] [place] [address] Marissa Barkley MD [facility] [address] [place] [address] CGRT / No RD availableHealth MaintenanceDue DateLast DoneCommentsAnnual PCP Team Chronic Disease Visit2007HIV Vupqcfxpc87/17/2008Hepatitis C Screening 2007Hepatitis B Vaccine (1 of 3 - 19+ 3-dose series)2008Cervical Cancer Rcdlyoksl52/17/2011HPV Vaccine (1 - 3-dose SCDM series)2016Covid-19 Vaccine ( season)/05/2021, 06/23/2020Influenza Vaccine (#1)509/, 11/16/2021, 01/01/2021, Additional history exists DTaP,Tdap,Td Vaccine (2 - Td or Tdap)08/07/401691/08/2016 Goals GoalPatient Goal TypeAssociated ProblemsRecent ProgressPatient-Stated?Author Blood Pressure < 140/90 Blood Twmxdcnt706/70(09/29/2024 10:45 AM EDT)Hannah Sage MD Medical Devices ImplantedTypeAreaManufacturerDevice [facility] Expiration DateModel / Serial / LotFibertak Hip Self Bunching Kl [place] 1.8mm Ar-3636h Implanted:Qty: 1 on [place] [facility] [place] Bone - Hip [employer]04/14/7AR-3636H / / [id number] Hip Self Bunching Kl [place] 1.8mm Ar-3636h Implanted:Qty: 1 on 07/10/2021 at [place] Bone - Hip [employer]04/14/2026R-3636H / / [id number] Hip Self Bunching Kl [place] 1.8mm Ar-3636h Implanted:Qty: 1 on 07/10/2021 at [place] Bone - Hip [employer]7AR-3636H / / [id number] Hip Self Bunching Kl [place] 1.8mm Ar-3636h Implanted:Qty: 1 on 07/10/2021 at [place] Bone - Hip [employer]7AR-3636H / / [id number] [employer] Surecuff 9.6fr 3.2mm 1.6mm 2 Branch 90cm Central Venous 1 - [id number] Implanted:Qty: 1 [facility] MAINCatheterBECTON BAPXOIGDC69/28/[id number] / / [id number] Hodges Surecuff 9.6fr 3.2mm 1.6mm 2 Branch 90cm Central Venous 1 - [id number] Implanted:Qty: 1 on 09/25/2024 [facility] CLARISSE [id number] / / [id number]:Nexplanon control L arm Procedures Procedure NamePriorityDate/TimeAssociated DiagnosisCommentsTPN FORMULA FLOW OOGBGCLAYLBUVboiixn43/04/2025 4:13 PM EST PHOSPHORUS FRVLIRIQXZmswnht37/03/2025 9:31 AM EST On total parenteral nutrition (TPN) At risk for fluid and electrolyte imbalance MAGNESIUM SMHTtxcbib78/03/2025 9:31 AM EST On total parenteral nutrition (TPN) At risk for fluid and electrolyte imbalance COMPLETE BLOOD ZMFEDFqylomg39/03/2025 9:31 AM EST On total parenteral nutrition (TPN) Anemia, unspecified type COMPREHENSIVE METABOLIC LLCOHJfaicyr49/03/2025 9:31 AM EST On total parenteral nutrition (TPN) At risk for fluid and electrolyte imbalance TPN FORMULA FLOW ATWTOSBORJJDGfbxylz79/19/2025 4:01 PM EST VITAMIN D 25 BXIVCQQGohiccc78/18/2025 9:52 AM EST On total parenteral nutrition (TPN) Vitamin D deficiency PHOSPHORUS WUZSOECIGAxayzxp55/18/2025 9:52 AM EST On total parenteral nutrition (TPN) At risk for fluid and electrolyte imbalance MAGNESIUM RNVXwadxzm16/18/2025 9:52 AM EST On total parenteral nutrition (TPN) At risk for fluid and electrolyte imbalance COMPLETE BLOOD YMUUMEbzfspw87/18/2025 9:52 AM EST On total parenteral nutrition (TPN) Anemia, unspecified type COMPREHENSIVE METABOLIC BJIBIYehsneu24/18/2025 9:52 AM EST On total parenteral nutrition (TPN) At risk for fluid and electrolyte imbalance TPN FORMULA FLOW AJBGOCIQJIDALexywzv84/13/2025 3:40 PM EST TPN FORMULA FLOW EGBYAZZTXACHSuiihac70/22/2025 9:19 AM EDT PHOSPHORUS DSUVTMKUNCfeusau64/20/2025 9:56 AM EDT On total parenteral nutrition (TPN) At risk for fluid and electrolyte imbalance MAGNESIUM RESOpmbjsy74/20/2025 9:56 AM EDT On total parenteral nutrition (TPN) At risk for fluid and electrolyte imbalance COMPLETE BLOOD HHJVTNkesliv03/20/2025 9:56 AM EDT On total parenteral nutrition (TPN) Anemia, unspecified type COMPREHENSIVE METABOLIC AJGJVQmijags52/20/2025 9:56 AM EDT On total parenteral nutrition (TPN) At risk for fluid and electrolyte imbalance TPN FORMULA FLOW JNVKFCTEGLGKBbdxlns20/08/2025 1:43 PM EDT PT ED PATIENT HKROPNLTYOU28/16/2025 PT ED DIGESTIVE WSRJDMH1510/31/2024 PHOSPHORUS OCPWYSCSTVsstshx44/15/2025 9:19 AM EDT On total parenteral nutrition (TPN) At risk for fluid and electrolyte imbalance MAGNESIUM SEAZqbtmuw76/15/2025 9:19 AM EDT On total parenteral nutrition (TPN) At risk for fluid and electrolyte imbalance COMPLETE BLOOD GXBGREybgcvh62/15/2025 9:19 AM EDT On total parenteral nutrition (TPN) Anemia, unspecified type COMPREHENSIVE METABOLIC XAOHZEbrnbid07/15/2025 9:19 AM EDT On total parenteral nutrition (TPN) At risk for fluid and electrolyte imbalance PHOSPHORUS PQEVXYWIZNcsdeoj56/08/2025 9:16 AM EDT On total parenteral nutrition (TPN) At risk for fluid and electrolyte imbalance MAGNESIUM KDMAfhaxxx18/08/2025 9:16 AM EDT On total parenteral nutrition (TPN) At risk for fluid and electrolyte imbalance COMPLETE BLOOD OZGRDRzqppta15/08/2025 9:16 AM EDT On total parenteral nutrition (TPN) Anemia, unspecified type COMPREHENSIVE METABOLIC CDJHHDpbfooc19/08/2025 9:16 AM EDT On total parenteral nutrition (TPN) At risk for fluid and electrolyte imbalance from Last 3 Months Results * TPN FORMULA FLOW PRESCRIPTION (01/18/2025 4:13 PM EST) Only the most recent of5 resultswithin the time period is included. Specimen (Source)Anatomical Location / LateralityCollection Method / Volume Collection TimeReceived Time01/18/2025 4:13 PM EST Narrative OTHER LAB - 01/18/2025 4:13 PM EST PN/EN Formula Flow CCF #: [id number] Patient Name: JUAN GARCIA Patient Date of : 1990 Physician: MARISSA BARKLEY MD Clinician: Ck Peraza Date of Prescription: 01/18/2025 ?Amino Acids Solution: 15% amino acids 15% ? Amino Acids (g): 90 ?Amino Acid %: 3.6 ?Amino Acids (KCal/Day): 154 ? Amino Acids (g/L): 36 ?Dextrose (g): 200 ? Dextrose (KCal/Day): 291 ?Dextrose (g/L): 80 ? Fat Emulsion Solution: Intralipid 20% ?Fat Percentage (%): 20 ?Fat Emul. Concentrate (ml): 250 ? Fat Emulsion (KCal/Day): 214 ?Fat Emulsion (g/L): 20 ?2 in 1 days/wk: 0 ?3 in 1 days/wk: 3 ?Total KCal w/Fat/Day: 659 ? KCal/k ?Grams Protein/k.1 ?Water for Injection (ml): 1224 (DOWN) ? HPN Volume (ml): 2500 ? Calcium Gluconate (mEq): 10 ? Magnesium Sulfate (mEq): 28 (UP) ? Potassium Phosphate (mEq): 0 ?Sodium Phosphate (mEq): 55 (UP) ? Glyco Phosphate (mEq): 0 ?Potassium Chloride (mEq): 0 ? Potassium Acetate (mEq): 90 (UP) ? Sodium Chloride (mEq): 0 ?Sodium Acetate (mEq): 100 ? Multiple Vitamin Solution: MVI Adult ?Multiple Vitamins (ml): 10 ?Vitamin K (Days): 0 ?Vitamin K (mg): 0 ?Mult Trace Elemts Solution: Tralement ? Mult. Trace Elemts (ml): 1 ?Chromium (mcg): 0 ? Copper (mg): 0.2 ? Manganese (mcg): 0 ?Selenium (mcg): 0 ? Zinc (mg): 3 ? Heparin (units): 0 Insulin Regular Human (units): 0 ? H2 Antagonist: ? H2 (mg): 0 ?Octreotide (mcg): 0 ?PN Infus Days (per wk): 3: Mon, Wed, Fri ?PN Infus Hrs (per day): 16 ?Taper Up (hrs): 0 ?Taper Down (hrs): 3 ? PN Refill: 12 ? PN Start Date: 01/18/2025 (*) ? PN End Date: 04/18/2025 (*) ?IVF Solution: 0.45NS ? IVF Volume (ml): 1999 ? IVF Infus Days/wk: 2 ? Other Desc. 1: 0.45% Sodium Chloride ?Other Qty./Day 1: 1000 ?Other Unit 1: mL ? Other Days/wk 1: prn for dehydration Ethanol Lock: Yes Homecare Pharmacy Date: ??10/14/2023 Name: ??[facility], [place], [place] [[facility] Phone: ??[phone] Fax: ??[phone] Homecare Pharmacy Comments: TPN Physician Orders: ?? CMP: ?? due date: 01/22/25 None] CBC: ?? due date: 01/22/25 None] Mg: ?? due date: 01/22/25 None] PO4: ?? due date: 01/22/25 None] Manganese (Whole Blood): ?? due date: 01/29/25 None] Selenium: ?? due date: 01/29/25 None] Copper: ?? due date: 01/29/25 None] Zinc: ?? due date: 01/29/25 None] CRP: ?? due date: 01/29/25 None] Physician Comments: ??Pharmacy: please send lab requisition to patient to alert her when labs are due. HNS - add all lab orders in Epic. (UP), (DOWN), and (*) indicate change from last formula flow Created By: Ck Peraza Creation Date: 01/18/2025 ??4:10PM Reported Date: 01/18/2025 ??4:13PM Authorizing ProviderResult TypeResult StatusCcf ProviderALLOGENFinal Result Performing OrganizationAddressCity/State/ZIP CodePhone Number OTHER LAB * MAGNESIUM (01/17/2025 9:31 AM EST) Only the most recent of5 resultswithin the time period is included. ComponentValueRef RangeTest MethodAnalysis TimePerformed AtPathologist Signature Magnesium1.71.7 - 2.3 mg/dL01/17/2025 10:38 AM ESTNOR[facility]CO[facility] LABSpecimen (Source)Anatomical Location / LateralityCollection Method / VolumeCollection TimeReceived TimeBloodBLOOD SPECIMEN / UnknownCentral Line / Wtnubbd7701/17/2025 9:31 AM EST01/17/2025 9:34 AM EST Narrative Authorizing ProviderResult TypeResult StatusMarissa Barkley MDLABORATORYFinal ResultPerforming OrganizationAddressCity/State/ZIP CodePhone Number [facility] [address] [place] [address] * (ABNORMAL) PHOSPHORUS INORGANIC (01/17/2025 9:31 AM EST) Only the most recent of5 resultswithin the time period is included. ComponentValueRef RangeTest MethodAnalysis TimePerformed AtPathologist Signature Phosphorus1.2(L)2.7 - 4.8 mg/dL01/17/2025 10:38 AM [facility] LABSpecimen (Source)Anatomical Location / LateralityCollection Method / VolumeCollection TimeReceived TimeBloodBLOOD SPECIMEN / UnknownCentral Line / Lyvalig5701/17/2025 9:31 AM EST01/17/2025 9:34 AM EST Narrative Authorizing ProviderResult TypeResult StatusMarissa Barkley MDLABORATORYFinal ResultPerforming OrganizationAddressCity/State/ZIP CodePhone Number [facility] [address] [place] [phone] * (ABNORMAL) COMPREHENSIVE METABOLIC PANEL (01/17/2025 9:31 AM EST) Only the most recent of5 resultswithin the time period is included. ComponentValueRef RangeTest MethodAnalysis TimePerformed AtPathologist Signature Protein, Total5.6(L)6.3 - 8.0 g/dL01/17/2025 10:38 AM ESTNOR[facility] LABAlbumin3.93.9 - 4.9 g/dL01/17/2025 10:38 AM ESTNORTHCT[facility] LABCalcium, Total8.1(L)8.5 - 10.2 mg/dL01/17/2025 10:38 AM ESTNOR[facility]UR[facility] LABBilirubin, Total0.20.2 - 1.3 mg/dL 01/17/2025 10:38 AM [facility] LABAlkaline Phosphatase 9934 - 123 U/L103/20/2024 10:38 AM [facility] WEMPNR57 13 - 35 U/L103/20/2024 10:38 AM [facility] EOPSUU992 - 38 U/L103/20/2024 10:38 AM [facility] MQRSlgkgae254(H) 74 - 99 mg/dL01/17/2025 10:38 AM [facility] Comment: The [place] Diabetes Association (ADA) provides guidance for cutoff [...] Standards of Medical Care in Diabetes 2016, [place] Diabetes Association. Diabetes Care. 2016.39(Suppl 1). BUN77 - 21 mg/dL01/17/2025 10:38 AM [facility] Creatinine0.50(L)0.58 - 0.96 mg/dL01/17/2025 10:38 AM [facility] GKLSuxqqs430015 - 144 mmol/L103/20/2024 10:38 AM [facility] LABPotassium3.83.7 - 5.1 mmol/L103/20/2024 10:38 AM [facility] OJJBftgorgu10502 - 107 mmol/L103/20/2024 10:38 AM [facility] RFQFJ33745 - 30 mmol/L103/20/2024 10:38 AM [facility] LABAnion Gap98 - 15 mmol/L103/20/2024 10:38 AM [facility] LABEstimated Glomerular Filtration Xufm641>=60 mL/min/1.73m 01/17/2025 10:38 AM [facility] LABComment:Estimated Glomerular Filtration Rate (eGFR) is calculated [...] TimeReceived TimeBloodBLOOD SPECIMEN / UnknownCentral Line / Jgqnlvz4701/17/2025 9:31 AM EST01/17/2025 9:34 AM EST Narrative Authorizing ProviderResult TypeResult StatusShirsilas Barkley MDLABORATORYFinal ResultPerforming OrganizationAddressCity/State/ZIP CodePhone Number [facility] [address] [place] [phone] * (ABNORMAL) COMPLETE BLOOD COUNT (01/17/2025 9:31 AM EST) Only the most recent of5 resultswithin the time period is included. ComponentValueRef RangeTest MethodAnalysis TimePerformed AtPathologist Signature WBC2.65(L)3.70 - 11.00 k/uL01/17/2025 9:38 AM [facility] LABRBC3.74(L)3.90 - 5.20 m/uL01/17/2025 9:38 AM [facility] TKNDhbwkolroo17.811.5 - 15.5 g/dL01/17/2025 9:38 AM [facility] AXTMpliqjpezf03.9(L)36.0 - 46.0 %01/17/2025 9:38 AM EST [facility] OQJZZL12.380.0 - 100.0 fL01/17/2025 9:38 AM [facility] TZXNHO76.626.0 - 34.0 pg01/17/2025 9:38 AM [facility] ZCRZLMX07.830.5 - 36.0 g/dL01/17/2025 9:38 AM [facility] LABRDW-CV16.4(H)11.5 - 15.0 %01/17/2025 9:38 AM [facility] LABPlatelet Aedfx229439 - 400 k/uL 01/17/2025 9:38 AM [facility] VCLINY87.89.0 - 12.7 fL 01/17/2025 9:38 AM [facility] LABAbsolute nRBC<0.01 <0.01 k/uL01/17/2025 9:38 AM [facility] LABSpecimen (Source)Anatomical Location / LateralityCollection Method / VolumeCollection TimeReceived TimeBloodBLOOD SPECIMEN / UnknownCentral Line / Aevqxzh4101/17/2025 9:31 AM EST01/17/2025 9:34 AM EST Narrative Authorizing ProviderResult TypeResult StatusMarissa Barkley MDLABORATORYFinal ResultPerforming OrganizationAddressCity/State/ZIP CodePhone Number [facility] [address] [place] [phone] * VITAMIN D 25 HYDROXY (01/02/2025 9:52 AM EST)ComponentValueRef RangeTest MethodAnalysis TimePerformed AtPathologist SignatureVitamin D 25 Sjrzcke74.5 31.0 - 80.0 ng/mL01/03/2025 11:54 AM ESTPROTESTANT HOSPITAL MAIN LABComment: Classification of 25 [place] Vitamin D status: Deficiency/Insufficiency: < or = 30 ng/ml. Sufficiency/Optimal Levels: 31-80 ng/mL Toxicity: > 100 ng/mL. Test performed by chemiluminescent immunoassay. Specimen (Source)Anatomical Location / LateralityCollection Method / Volume Collection TimeReceived TimeBloodBLOOD SPECIMEN / UnknownPort - Continuous Access Dev. / Gjpigsr5101/02/2025 9:52 AM EST01/02/2025 9:58 AM EST Narrative [facility] - 01/03/2025 11:54 AM EST The reference range interval was based on an analysis of samples from healthy adults and may not pertain to children from 0-18 years old. Authorizing ProviderResult TypeResult Maggy Barkley MDLABORATORYFinal ResultPerforming OrganizationAddressCity/State/ZIP CodePhone Number [facility] [address] [place] [address], * PT ED PATIENT INFORMATION (10/31/2024)Specimen (Source)Anatomical Location / LateralityCollection Method / VolumeCollection TimeReceived Time10/31/2024 Narrative [facility] - 12/01/2024 Provider SHEY your patient JUAN GARCIA has not started their Claribel program, time has . Claribel program: PATIENT SAFETY INSTRUCTIONS FOR HEALTHCARE SETTINGS Authorizing ProviderResult TypeResult Pascual Valladares MDEMMIFinal Result Performing OrganizationAddressCity/State/ZIP CodePhone Number [facility] * PT ED DIGESTIVE DISEASE (10/31/2024)Specimen (Source)Anatomical Location / LateralityCollection Method / VolumeCollection TimeReceived Time10/31/2024 Narrative [facility] - 12/01/2024 Provider SHEY your patient JUAN GARCIA has not started their Claribel program, time has . Claribel program: UPPER GI ENDOSCOPY (EGD) Authorizing ProviderResult TypeResult Pascual Valladares MDEMMIFinal Result Performing OrganizationAddressCity/State/ZIP CodePhone Number [facility] from Last 3 Months Insurance * Guarantor: Juan Garcia TypeRelation to PatientDate of BirthPhone Billing AddressPersonal/SqttzdPnmq[birth year][id number] [address] Advance Directives TypeDate RecordedPatient RepresentativeExplanationAdvance Directive(s)03/13/2021 9:49 AM * Full Code (Latest Code Status on File) Date ActivatedDate InactivatedComments09/20/2024 10:19 PM09/26/2024 6:42 PMQuestion AnswerCommentsFull Code Order Discussed With:* Patient * Full Code Date ActivatedDate InactivatedComments04/11/2024 11:09 AM04/13/2024 5:42 PM QuestionAnswerCommentsFull Code Order Discussed With:* Patient * Full Code Date ActivatedDate ApadvfovcpuKyilccii02/17/2024 1:45 AM12/03/2023 5:36 PM QuestionAnswerCommentsFull Code Order Discussed With:* Patient * Full Code Date ActivatedDate InactivatedComments10/10/2023 5:58 PM10/12/2023 3:51 PMQuestion AnswerCommentsFull Code Order Discussed With:* Patient * Full Code Date ActivatedDate InactivatedComments08/07/2023 3:20 PM08/08/2023 5:15 PMQuestion AnswerCommentsFull Code Order Discussed With:* Patient Care Teams Team MemberRelationshipSpecialtyStart DateEnd Thomas Alas MD [address] [place] [address] PCP - GeneralFamily Medicine07/30/23 Antelmo Davey MD [address] [place] [address] 09/25/19 [place] [address] [place] [address] ConsultingGeneral Surgery09/25/19 Shanna Jnue CNP [address] [place] [address] ReferringFamily Medicine10/19/19 Tj Najera PA [address] [place] [address] ReferringFamily Medicine05/13/22 Marissa Barkley MD [address] [place], [place] [phone] Home Parenteral Nutrition ProviderGastroenterology10/14/23
--- OUTSIDE RECORDS SUMMARY | 2025-01-22 23:26 | XMS_ITS | Encounter Summary ---
Author Organization [facility] Address [address] [place] [address] Care Team Providers Care Stamp Redemption Clerk Name Role Phone Thomas Alas MD Primary Care Provider [phone] Vicky Cardenas RN Unavailable Unavailable Reason for Visit * ReasonOnset DateCommentsCare Vnqsenqfetxs82/05/2025 Encounter Details DateTypeDepartmentCare Team (Latest Contact Info)Jwrzdgqlhuf00/05/2025Patient Outreach Value Based Care [address] [place] [phone] Vicky Cardenas, DEE Care Coordination Social History Tobacco UseTypesPacks/DayYears UsedDateSmoking Tobacco: NeverSmokeless Tobacco: NeverAlcohol UseStandard Drinks/WeekCommentsNot Currently0 (1 standard drink = 0.6 oz pure alcohol)[facility] UtilitiesAnswerDate RecordedIn the past 12 months has the [employer], gas, oil, or water [employer] threatened to shut off services in your home?Yes12/17/2024Overall Financial Resource Strain (CARDIA)AnswerDate Recorded How hard is it for you to pay for the very basics like food, housing, medical care, and heating?Not hard at all12/17/2024PHQ-2AnswerDate RecordedPatient Health Questionnaire-2 Ztnni05302/28/2024Humiliation, Afraid, Rape, and Kick questionnaireAnswerDate RecordedWithin the [...] homeless or living in a mcfp (including now)?No12/17/2024Hunger Vital SignAnswerDate RecordedWithin the past 12 months, you worried that your food would run out before you got the money to buymore.Never true12/17/2024Ran Out of Food in the Last YearNot on file 12/17/2024CommentsNoSex and Gender InformationValueDate RecordedSex Assigned at XqhxaNfopac19/03/2025 3:45 PM EDTLegal HhnYxygyz86/30/2022 12:07 AM EDTGender TzyurznlWtoyfs69/03/2025 3:45 PM EDTSexual OrientationHeterosexual or Ihjxiils60/03/2025 3:45 PM EDTdocumented as of this encounter Progress Notes * Vicky Cardenas RN - 01/19/2025 1:39 PM EST OP RN CM called pt for coordination of care. Pt stated that she was discharged today from [facility] due to abnormal labs. Pt states she has a follow up appointment with her PCP on 01/25/2025.Pt is aware of her upcoming [facility] appointments on 01/23/2025 and 01/26/2025. Pt confirmed she is receiving TPN 3x a week and is receiving home health with [facility]. This marketing underwriter informed pt that a health plan case management coordinator was requested on pt's behalf. Pt stated she has not been contacted by a health plan case management coordinator at this time. Encouraged pt to Utilize PCP when appropriate and explained difference between Urgent Care versus the ED. Pt verbalized understanding. OP RN CM will continue to follow. documented in this encounter Plan of Treatment DateTypeDepartmentCare Team (Latest Contact Info)Ntloewtqyxk64/12/2025 2:00 PM ESTAppointment [facility] [address] [place] [phone] 01/31/2025 11:00 AM ESTOffice Visit [facility] [address] [place] [phone] Wali Collins MD [address] [place] [phone] 06/28/2025 1:15 PM EDTFollow-Up [facility] Surgery Clinic [address] [place] [phone] Donnie Cesar MD [address] [place] [phone] documented as of this encounter Visit Diagnoses Not on filedocumented in this encounter Care Teams Team MemberRelationshipSpecialtyStart DateEnd Thomas Alas MD [address] [facility] [address] [address] PCP - GeneralFamily Medicine08/17/24 Vicky Cardenas, DEE Case ManagerCase Ftgouguqid72/13/25documented as of this encounter
--- OUTSIDE RECORDS SUMMARY | 2025-01-22 23:26 | XMS_ITS | Clinical Summary ---
Author Organization [facility] Address [address] [place] [address] Care Team Providers Care Graduate Fellow Name Role Phone Britt Alas MD Primary Care Provider [phone] Vicky Cardenas RN Unavailable Unavailable Allergies Active AllergyReactionsCriticalityNoted AcgjFmnitpqcJmfucjgvClqdRww47/02/2025 Adhesive Tape-IxeudaxiqTwozeNybntk98/23/2020 Sensitive to certain adhesive tapes. Redness and itchy. CodeineNausea And HwppxqqaNwylwy46/02/2025Nsaids (Non-Steroidal Anti- Inflammatory Drug)GI hnytdvoecdwEwxcqt45/02/2025 Medications MedicationSigDispense QuantityRefillsLast FilledStart DateEnd DateStatus liothyronine [...] day. Give with 25 mcg patchActive HYDROcodone-acetaminophen ([place]) 5-325 mg tablet Take 2 tablets by [...] hours for 395 doses. 30 tablet 502/ctive Active Problems ProblemNoted DateDiagnosed DatePartial bowel pqoxyarajuo93/02/2025Obstructed internal qnwifa4012/17/2024bnormal thyroid blood test12/05/2024llergic vvjhazdankkisa46/21/2577Hiiqbmpc84/21/2025 Overview (12/05/2024): Problem List clean-up per request of Phys. EHR Cmte Edema12/05/20248295Gugjwkygaysa76/21/0566Whkdfxzeqfl51/21/2025Otitis media of left ear12/05/2024Postgastric surgery ppfmbmno96/21/5781Hsidnwqzq37/21/2025 Overview (12/05/2024): Problem List clean-up per request of Phys. EHR Cmte Common bile duct iwlzxsksnn35/02/2025 Assessment & Plan (11/16/2024 2:13 AM EDT): [...] Pain management GI consult Disorder of endocrine fqvuct9011/09/2024Lumbar macfitzdzflqg86/25/2025Migraine 11/09/2024Severe protein-calorie malnutrition ([place]: less than 60% of standard weight)11/09/2024Pseudoaneurysm of right femoral ylbzqp0311/09/2024 Assessment & Plan (11/12/2024 12:39 PM EDT): [...] pseudoaneurysm 11/02 -stable - follow Hgb Myocardial zmzzhg6911/09/2024 Assessment & Plan (11/12/2024 12:39 PM EDT): [...] need to uptitrate verapamil if BP allows Oaatgngr58/18/2025Chest pain10/30/2024 Assessment & Plan (11/16/2024 2:13 AM [...] without complication, without long-term current use of qngsgdc7610/30/2024 Assessment & Plan (11/12/2024 12:39 PM EDT): [...] at home, will begin ISS, ACHS Primary kvlawmnqtrzd82/15/2025Other zukfuyvmpcuiqb63/15/4827Yprpmg53/15/2025 Assessment & Plan (11/02/2024 1:29 PM EDT): [...] Stable, last BM yesterday Median arcuate ligament seoahicq63/15/2025 Assessment & Plan (11/12/2024 12:39 PM EDT): [...] and then MALS release S/P laparoscopic sleeve ghzvifrhvez85/15/2025 Assessment & Plan (11/12/2024 12:39 PM EDT): [...] 9:00 PM EDT): - Stable Protein calorie jcsxwrisisvg03/15/2025 Assessment & Plan (11/02/2024 1:29 PM EDT): [...] pain today patient brought urgently back to [facility] Assessment & Plan (11/01/2024 11:57 AM EDT): [...] -Pending TTE, cath Spontaneous dissection of coronary rsfkli7810/30/2024 Assessment & Plan (11/12/2024 12:39 PM EDT): [...] pain today patient brought urgently back to [facility] Feeding qtlimrthlfar17/09/2025roken central line09/21/2024Long term (current) use of opiate wjdbiytjt39/07/2025Poor response to enteral ojqztokdq64/28/2025 Sepsis due to Nkahcgevwp63/04/2025 Assessment & Plan (08/19/2024 1:03 PM EDT): - source is likely the cellulitis around the J-tube status post J-tube removal. - CT scan from [facility] showing no abscess. - Infectious disease recommendations appreciated, continue with ceftriaxone. - Repeat blood cultures on 08/16: NGTD - central line in place, does not look like infected, continue monitoring, central line care. Assessment & Plan (08/18/2024 12:20 PM EDT): - source is likely the cellulitis around the J-tube status post J-tube removal. - CT scan from [facility] showing no abscess. - Infectious disease recommendations appreciated, continue with ceftriaxone. - Repeat blood cultures on 08/16: NGTD - central line in place, does not look like infected, continue monitoring, central line care. Sepsis due to Putvdpvrbzhp63/04/2025 Assessment & Plan (08/19/2024 1:03 PM EDT): - source is likely the cellulitis around the J-tube status post J-tube removal. - CT scan from [facility] showing no abscess. - Infectious disease recommendations appreciated, continue with ceftriaxone. - Repeat blood cultures on 08/16: NGTD - central line in place, does not look like infected, continue monitoring, central line care. Assessment & Plan (08/18/2024 12:20 PM EDT): - source is likely the cellulitis around the J-tube status post J-tube removal. - CT scan from [facility] showing no abscess. - Infectious disease recommendations appreciated, continue with ceftriaxone. - Repeat blood cultures on 08/16: NGTD - central line in place, does not look like infected, continue monitoring, central line care. Uvokqkqgakjxj38/04/2025 Assessment & Plan (11/12/2024 12:39 PM EDT): [...] admission. - As needed antiemetics Chronic pain abdjfqyy41/04/2025 Assessment & Plan (11/12/2024 12:39 PM EDT): [...] and scheduled tramadol. Continue with as needed [place]. Assessment & Plan (08/18/2024 12:20 PM EDT): - continue with home meds including fentanyl patch and scheduled tramadol. Continue with as needed [place]. 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 Assessment & Plan (08/18/2024 12:20 PM EDT): - status postresection. History of adrenal xngdclejtnboz74/04/2025 Assessment & Plan (11/12/2024 12:39 PM EDT): [...] PM EDT): - continue with dexamethasone Acquired xqbytrhqigiiae78/04/2025 Assessment & Plan (11/16/2024 2:13 AM EDT): [...] 12:20 PM EDT): - continue with levothyroxine. Cnyurvbdxuvhhv90/03/2025 Assessment & Plan (11/12/2024 12:39 PM EDT): [...] well as other thyroid function testing Morbid wysrual4508/17/2024 Assessment & Plan (08/19/2024 1:03 PM EDT): [...] daily DVT prophylaxis is VTE protocols per [facility] GI prophy Protonix Monitor labs) Obtain blood cultures Comments IV Vanco and cefepime Consult infectious diseases Early ambulation I discussed the plan of care with the patient and she is in agreement. Yxttjqzuxm79/02/2025 Assessment & Plan (08/17/2024 1:27 AM EDT): -Unclear blood cultures - Commence patient on Vanco/cefepime - Monitor patient blood cultures - Also evaluate lab tests and correct abnormalities - Consult infectious disease - Obtain 2D echocardiogram History of laparoscopic stoykqcsakrtpjt60/25/2025hronic, continuous use of ckyiwko5104/11/2024Starvation lfcgpgusgxee83/25/2025Intestinal uudwhxuaz86/07/2024 Screening for diabetes mellitus (DM)01/22/2024History of small bowel obstruction 01/21/2024Impaired intestinal hjwexznpfc91/18/1175Cqmie51/25/2024urrent use of steroid johheqkiuv23/21/2024ommunity acquired pneumonia of left lower lobe of lung08/07/2023Idiopathic kewcgeviagd41/21/2024spiration pneumonia of left lower lobe due to vomit08/04/2023Syncope and homwxmcx84/19/2024Heart gzokmdv5806/29/2023 Acute renal failure superimposed on chronic kidney rboydyw3606/29/2023Hypokalemia 06/29/2023ecreased oral nxnpck4305/25/20238389Kqxpapvabpcoko84/19/2024nxiety and blqccygzxv40/23/2023Feeding bdpcoef3712/07/2022Therapeutic drug monitoring 12/07/20226982Gumujsdeukn22/12/2023ilious vomiting with iztvxv0910/28/2022Intractable vomiting with bhvvke0910/25/20220406Wilxgz88/20/2023 Overview (11/09/2024): Takes Pro FE daily. Last Assessment & Plan: Assessment: iron infusions ~1 month ago Acute pain of right knee08/04/2022all stone08/04/2022Internal derangement of right /20/2023Mixed incontinence urge and eigbsn3208/04/2022Other specified noninflammatory disorders of faspln7008/04/2022atellofemoral pain syndrome of right knee08/04/2022Right flank pain08/04/2022Vaginal pain08/04/2022 Rash and nonspecific skin bdsotcjz57/07/2023History of Isabel-en-Y gastric bypass 06/24/2022ipolar jwtwxuos57/07/2023astric ehzmmu4601/29/2022Iron deficiency mtsjht1511/01/2021Ventral hernia without obstruction or bwryhxyw66/27/2022 Overview (12/05/2024): Last Assessment & Plan: Assessment: will have surgery Calculus of slyewf2103/10/2021bnormal finding on imaging of liver04/07/2020 Moderate recurrent major fwcekxhcjj91/18/2020Situational dtvbbp9601/03/2020Panic disorder without snbkleswftu08/06/2020Trauma and stressor-related disorder 11/21/2019Duodenogastric reflux of bile11/16/20196921Sfmjul71/10/2020Preoperative gwfzyloaasy99/10/2020Regurgitation of food09/25/2019Laryngopharyngeal reflux 10/07/2018Obstructive sleep apnea aoojhkjm14/23/2019 Overview (12/05/2024): wears mask every night Hddbkfmjmmkxwf21/20/2019Reactive kcpztsyfcpel47/19/2019Chronic fatigue syndrome 09/19/2018Iron anfyzojelw90/05/2019Vitamin D jwxigzmill86/05/2019Insomnia 09/15/2018Maltracking of right iyxjvgt2506/27/2018Chondromalacia of patella, right 05/30/2018Arthritis of right knee05/30/201839 weeks gestation of 11/23/2016PCOS (polycystic ovarian syndrome)10/02/2013 Overview (11/09/2024): Last Assessment & Plan: Assessment: monitored per PCP Encounters DateTypeDepartmentCare AtlyPdmlnymhnuo44/05/2025Patient Outreach [facility] [address] [place] [address] Vicky Cardenas, DEE Care Crksslsaqtpu21/20/2025Patient Outreach Value Based Care [address] [place] [address] Vicky Cardenas, DEE 01/03/2025Patient Outreach Value Based Care [address] [place] [address] Vicky Cardenas, DEE 01/03/2025Patient Outreach Value Based Care [address] [place] [address] Vicky Cardenas, RN Care Agwatpvcblpd31/19/2025Orders Only [facility] Surgery Clinic [address] [place] [phone] Blanka Parkinson, DEE Decreased oral intake (Primary Dx); History of Isabel-en-Y gastric bypass; Protein-calorie malnutrition, unspecified severity; Median arcuate ligament syndrome; Impaired intestinal uusooncolh50/18/2025Patient Outreach Value Based Care [address] [place] [phone] Vicky Cardenas, DEE Care Ozbezpnssnzv44/13/2025 3:00 PM ESTOffice Visit [facility] Surgery Clinic [address] [place] [address] Donnie Cesar MD History of Isabel-en-Y gastric bypass (Primary Dx)12/28/2024Patient Outreach Value Based Care [address] [place] [phone] Vicky Cardenas RN Care Omrkkqxbjfmt52/03/2025 8:00 PM EST - 12/18/2024 9:45 PM ESTSurgery [facility] Main Operating Room [address] [place] [address] Donnie Cesar MD DIAGNOSTIC LAPAROSCOPY [[id number] (CPT??)]12/18/2024 7:08 PM ESTAnesthesia Event [facility] Main Operating Room [address] [place] [address] Josue Walters MD Smay, Kyle, CAA 12/17/2024 10:07 AM EST - 12/21/2024 2:02 PM ESTHospital Encounter [facility] 6AB Ortho Surgery [address] [place] [address] Anne Marie Scott MD Partial bowel obstruction (CMS/HCC) (Primary Dx); Partial intestinal obstruction, unspecified cause (CMS/HCC); Obstructed internal hernia; Anemia due to acute blood loss Discharge Disposition: Home-Health Care [facility] (06)12/17/20246720Svgbxf64/30/2025 9:18 AM EDTAnesthesia Event [facility] Endoscopy [address] [place] [address] Sergei Randall MD Arnaut, Daniel, MD 12/14/2024 7:17 AM EDT - 12/14/2024 9:35 AM EDTHospital Encounter [facility] Endoscopy [address] [place] [phone] Braxton Bellamy MD Jackson, Jennifer, CAA Bhatt, Shashi B., MD Common bile duct dilatation; Chronic narcotic use Discharge Disposition: Home or Self Care ()12/14/20242628Adqtxf31/24/2025Telephone [facility] Endoscopy [address] [place] [phone] Muna Michael, DEE 12/06/2024 11:20 AM EDTOffice Visit [facility] [address] [place] [facility] [place] [address] Wali Collins MD Spontaneous dissection of coronary artery (Primary Dx); Other fatigue; Precordial pain; Anemia due to acute blood loss12/06/2024Orders Only [facility] [address] [place] [facility] [place] [address] Maryuri Downing MA Anemia, unspecified type (Primary Dx)12/05/2024Orders Only [facility] [address] [place] [facility] [place] [address] ProviderSiri MD 12/04/20240179Tfxeeg96/17/2025Orders Only [facility] Endoscopy [address] [place] [phone] Muna Michael, DEE Common bile duct dilation (Primary Dx)11/26/2024 7:34 PM EDT - 11/26/2024 9:45 PM EDTEmergency [facility] Emergency [address] [place] [address] Israel Jeong MD Acute UTI (Primary Dx) Discharge Disposition: Home or Self Care ()11/26/20248715Mdzmkt14/01/2025 7:56 PM EDT - 11/17/2024 2:42 PM EDTHospital Encounter [facility] [address] [place] [phone] Sandeep Casey MD Chest pain (Primary Dx) Discharge Disposition: Home-Health Care [facility] (06)11/15/20248479Mdnuqv82/25/2025 10:47 AM EDT - 11/13/2024 2:34 PM EDTHospital Encounter [facility] [address] [place] [address] Urbano Santos MD Chang, Kyu Chul, MD Schwarz, Stephanie, DO Chest pain (Primary Dx); Chronic narcotic use Discharge Disposition: Home-Health Care [facility] (06)11/09/20243411Qdiiwu17/18/2025 8:45 PM EDTAnesthesia Event [facility] Main Operating Room [address] [place] [address] David Reyes MD 11/02/2024 8:45 PM EDT - 11/02/2024 11:15 PM EDTSurgery [facility] Main Operating Room [address] [place] [address] Jose Angel Fox MD EXPLORATION, HEMATOMA Right Groin11/02/2024 5:41 PM EDT - 11/02/2024 6:41 PM EDT Surgery [facility] Heart [facility] [address] [place] [address] Wali Collins MD Coronary zjaqytrqvdd33/17/2025 12:30 PM EDT - 11/01/2024 1:30 PM EDTSurgery [facility] Heart [facility] [address] [place] [address] Mitchell Agustin MD Coronary zxuqrdqneao67/16/2025 1:30 PM EDT - 10/31/2024 2:30 PM EDTSurgery [facility] Heart [facility]ascular [facility] [address] [place] [address] Tino Gilmore MD Coronary sckooxbuzja05/15/2025 6:28 PM EDT - 11/07/2024 5:10 PM EDTHospital Encounter [facility] [address] [place] [phone] Sandeep Casey MD Spencer, Caleb T, MD Vicente, David, MD Mansur, Sarmed, MD Moukarbel, George, MD Hematoma (Primary Dx); Chest pain; NSTEMI (non-ST elevated myocardial infarction) (CMS/HCC); Spontaneous dissection of coronary artery; Gastroparesis; Gastroesophageal reflux disease without esophagitis Discharge Disposition: Home-Health Care [facility] (06)10/30/2024Travelfrom Last 3 Months Family History Medical HistoryRelationNameCommentsNo Known ProblemsFatherNo Known Problems MotherRelationNameStatusCommentsFatherAliveMotherAlive Social History Tobacco UseTypesPacks/DayYears UsedDateSmoking Tobacco: NeverSmokeless Tobacco: Never Tobacco Cessation:Counseling Given: Not Answered Alcohol UseStandard Drinks/WeekCommentsNot Currently0 (1 standard drink = 0.6 oz pure alcohol)[facility] UtilitiesAnswerDate RecordedIn the past 12 months has the electric, gas, oil, or water [employer] threatened to shut off services in your home?Yes12/17/2024Overall Financial Resource Strain (CARDIA)AnswerDate Recorded How hard is it for you to pay for the very basics like food, housing, medical care, and heating?Not hard at all12/17/2024PHQ-2AnswerDate RecordedPatient Health Questionnaire-2 Dadvs66602/28/2024Humiliation, Afraid, Rape, and Kick questionnaireAnswerDate RecordedWithin the [...] homeless or living in a halfway (including now)?No12/17/2024Hunger Vital SignAnswerDate RecordedWithin the past 12 months, you worried that your food would run out before you got the money to buymore.Never true12/17/2024Ran Out of Food in the Last YearNot on file 12/17/2024CommentsNoSex and Gender InformationValueDate RecordedSex Assigned at MdmmlXvojvu03/03/2025 3:45 PM EDTLegal VprOcexjz69/30/2022 12:07 AM EDTGender GvczkufjOrkqsw92/03/2025 3:45 PM EDTSexual OrientationHeterosexual or Lxcqvcoy60/03/2025 3:45 PM EDT Last Filed Vital Signs Vital SignReadingTime TakenCommentsBlood Obuhbxqc653/56102/28/2024 3:01 PM EST Ozpaa696712/28/2024 3:01 PM YQEPmeiuzaeohz53 ??C (98.6 ??F)12/28/2024 3:01 PM EST Respiratory Lgsp172402/21/2024 7:43 AM ESTOxygen Qbuuyxjrsi69%12/21/2024 7:43 AM ESTInhaled Oxygen Concentration--Hfheak85.9 kg (180 lb 9.6 oz)12/28/2024 3:01 PM LLNHrjvfy866.6 cm (5' 6 )12/28/2024 3:01 PM ESTBody Mass Index29.15102/28/2024 3:01 PM EST Plan of Treatment DateTypeDepartmentCare Team (Latest Contact Info)Yjkbsgyivnl43/12/2025 2:00 PM ESTAppointment [facility] X[facility] [address] [place] [phone] 01/31/2025 11:00 AM ESTOffice Visit [facility] [address] [place] [address] Wali Collins MD [address] [place] [address] 06/28/2025 1:15 PM EDTFollow-Up [facility] Surgery Clinic [address] [place] [address] Donnie Cesar MD [address] [facility] [place] [address] Health MaintenanceDue DateLast DoneCommentsDiabetes: Retinopathy Screening 1999Varicella Vaccines (1 of 2 - 13+ 2-dose series)2002Diabetes: Urine Protein Adynxvoda27/17/2009Hepatitis B Vaccines (1 of 3 - 19+ 3-dose series)2008Pneumococcal Vaccine: Pediatrics (0 to 5 Years) and At-Risk Patients (6 to 64 Years) (1 of 2 - PCV)2008Zoster Vaccines (1 of 2) 2008HPV Vaccines (1 - Risk 3-dose SCDM series)2016HPV/Cotest 2019Cervical Cancer Ztsveeoyg71/06/2024Pap Smear/OVID- 19 Vaccine ( season)501/05/2021, 06/23/2020Influenza Vaccine (#1)509/, 11/16/2021, 01/01/2021, Additional history exists Diabetes: Hemoglobin A1C509/Depression Riwfvuagh10/13/2026 12/28/2024dult Ehabeqp95HIB VaccinesAged OutNo longer eligible based on patient's [...] Procedures Procedure NamePriorityDate/TimeAssociated DiagnosisCommentsPOCT GLUCOSE METER UNSOLICITED WQOVNFYDicrifz78/06/2025 11:46 AM EST POCT GLUCOSE METER UNSOLICITED VBCTSMBFuqrjfd99/06/2025 5:59 AM EST QYGGdzfbro82/06/2025 5:11 AM EST BASIC METABOLIC CPWNOStrpwxk31/06/2025 5:11 AM EST POCT GLUCOSE METER UNSOLICITED WQFBBDRNtgfape81/05/2025 11:27 PM EST POCT GLUCOSE METER UNSOLICITED QAHWHYATwqlapy51/05/2025 5:[address] ABDOMEN PELVIS W IV URAZBMUSNXKH16/05/2025 2:14 PM EST ECG 12-VCYKBPHO99/05/2025 12:22 PM EST POCT GLUCOSE METER UNSOLICITED GTOPPMJYlfxbca73/05/2025 11:44 AM EST XR ABDOMEN 1 VCNEHIWR25/05/2025 10:26 AM EST LACTIC ACID WITH 4 HOUR QSNLZFSEIU03/05/2025 10:20 AM EST ZWCNLWK2612/20/2024 10:20 AM EST IRON AND VYSGVjybjpp76/05/2025 6:29 AM EST Anemia due to acute blood loss PHOSPHORUSAdd-On12/20/2024 6:29 AM EST YOYCeijkuu86/05/2025 6:29 AM EST BASIC METABOLIC CFBLXVbzzewh92/05/2025 6:29 AM EST POCT GLUCOSE METER UNSOLICITED PQIVTIELxbquiw72/05/2025 6:17 AM EST POCT GLUCOSE METER UNSOLICITED YKJBXDKYomnsqn31/05/2025 12:05 AM EST POCT GLUCOSE METER UNSOLICITED RVAOVMFJfcutud76/04/2025 5:57 PM EST FL SMALL BOWEL QGXSVQMSFD19/04/2025 1:15 PM EST POCT GLUCOSE METER UNSOLICITED ZBCOQIKOhziobo16/04/2025 11:09 AM EST PHOSPHORUSAdd-On12/19/2024 7:49 AM EST MAGNESIUMAdd-On12/19/2024 7:49 AM EST GCKXxgikez17/04/2025 7:49 AM EST BASIC METABOLIC ONSFGYifyugj73/04/2025 7:49 AM EST POCT GLUCOSE METER UNSOLICITED ALIFBOHLrejcrd35/04/2025 6:34 AM EST POCT GLUCOSE METER UNSOLICITED HLTJOZXVuuommd59/04/2025 12:06 AM EST OH AN ELECTIVE ENDOTRACHEAL WDFMXXPpkkmmw02/03/2025 7:16 PM EST REPAIR, HERNIA, XWVLRFXXSKOA94/03/2025 7:08 PM EST Obstructed internal hernia LYSIS, IWGAXFKSA52/03/2025 7:08 PM EST Obstructed internal hernia OH LAPS ABD PRTM&OMENTUM DX W/WO SPEC BR/WA SPX102/18/2024 7:08 PM EST Obstructed internal hernia POCT GLUCOSE METER UNSOLICITED IWYOKSJWxuscvi42/03/2025 5:47 PM EST XR TRANSFER OF OUTSIDE WWJOJKbrbwuv09/03/2025 1:10 PM EST XR TRANSFER OF OUTSIDE WGYAZEybmrti78/03/2025 1:10 PM EST XR TRANSFER OF OUTSIDE SWZKGMtssumm13/03/2025 1:10 PM EST XR TRANSFER OF OUTSIDE DFFDKTocjxtt78/03/2025 1:[address] TRANSFER OF OUTSIDE FOUBHOppccql88/03/2025 1:[address] TRANSFER OF OUTSIDE WZOZSMrunfby58/03/2025 1:[address] TRANSFER OF OUTSIDE XKPDOWztwfwr22/03/2025 1:[address] TRANSFER OF OUTSIDE ZTJZPDgikfxj64/03/2025 1:[address] TRANSFER OF OUTSIDE EAFPCWwswgax94/03/2025 1:10 PM EST COMPREHENSIVE METABOLIC LVAYOYoqzeac91/02/2025 1:05 PM EST GZVExhynwq00/02/2025 1:05 PM EST XR CHEST 1 TXQNIgqctyf19/02/2025 12:58 PM EST EUS (UPPER) W/ WVXGygtrcd23/30/2025 9:59 AM EDT Common bile duct dilatation HISTOLOGY - TISSUE QSNAJrajtpg08/30/2025 9:49 AM EDT Common bile duct dilatation [place] AN ELECTIVE ENDOTRACHEAL GFGFRKQgxrcte89/30/2025 9:25 AM EDT POCT GLUCOSE METER UNSOLICITED BQMGSMWLhhwywl22/30/2025 7:47 AM EDT HEPATIC FUNCTION ITWDHYrhtgbw52/30/2025 7:40 AM EDT URINALYSIS MICROSCOPIC WITH REFLEX YDIQPIDWZOT75/12/2025 8:27 PM EDT SERUM XUEGBFNDQGDIJIB32/12/2025 8:27 PM EDT URINALYSIS WITH REFLEX AWIGVCHLERM13/12/2025 8:27 PM EDT XR CHEST 1 AHZQIHBG58/12/2025 8:17 PM EDT ECG 12-CAUBOPVZ44/12/2025 8:13 PM EDT CBC WITH AUTO QJKECCQINJDAKSGH40/12/2025 8:05 PM EDT HIGH SENSITIVITY TROPONIN ISTAT1 8:05 PM EDT ZWKKYSYTQI17/12/2025 8:05 PM EDT COMPREHENSIVE METABOLIC SMDLBLGHQ91/12/2025 8:05 PM EDT CBC AND DMIWCVBVAOUYAOBF86/12/2025 8:05 PM EDT HEPATIC FUNCTION PANELAdd-On11/17/2024 5:17 AM EDT MAGNESIUMPending Nrusmzseq65/03/2025 5:17 AM EDT CBCPending Nodbjrugx39/03/2025 5:17 AM EDT BASIC METABOLIC PANELPending Xwgfoxbpk32/03/2025 5:17 AM EDT MR ABDOMEN WO CONTRAST XEOWGMFR27/02/2025 8:32 PM EDT ECG 12-HQNREiznhyn35/02/2025 9:55 AM EDT HEPATIC FUNCTION PANELSTAT Add-on11/16/2024 5:36 AM EDT HIGH SENSITIVITY TROPONIN IAdd-On11/16/2024 5:36 AM EDT MIMWfjuiph08/02/2025 5:36 AM EDT BASIC METABOLIC UJHARZwzkxdw43/02/2025 5:36 AM EDT XR CHEST 1 DQYRAvyvowh88/29/2025 12:51 PM EDT POCT GLUCOSE METER UNSOLICITED JDOMHHTSmipfsf83/29/2025 11:08 AM EDT HOME O2 EVAL (DESATURATION SCREEN)Rsdonbf0911/13/2024 10:32 AM EDTHIGH SENSITIVITY TROPONIN IPending Jjpezjdsu98/29/2025 7:03 AM EDT BASIC METABOLIC PANELPending Hmnvsnmwf70/29/2025 7:03 AM EDT CBCPending Jhfkwuctj37/29/2025 7:03 AM EDT POCT GLUCOSE METER UNSOLICITED XBFPKUXEjcynmm57/29/2025 7:01 AM EDT HIGH SENSITIVITY TROPONIN IPending Nedfyolwi21/29/2025 12:17 AM EDT POCT GLUCOSE METER UNSOLICITED MMEEKREKabsrmj29/29/2025 12:16 AM EDT HIGH SENSITIVITY TROPONIN IPending Omoorcdvu04/28/2025 6:28 PM EDT POCT GLUCOSE METER UNSOLICITED BDGYEPDBdlouhp57/28/2025 6:18 PM EDT ECG 12-KIOFYifedhj23/28/2025 1:41 PM EDT HIGH SENSITIVITY TROPONIN ISTAT11/12/2024 1:34 PM EDT HIGH SENSITIVITY TROPONIN IPending Sgxppidoa09/28/2025 10:56 AM EDT POCT GLUCOSE METER UNSOLICITED GHQSEQMUlqgwpl16/28/2025 10:55 AM EDT HIGH SENSITIVITY TROPONIN IPending Dcqjlrztw02/28/2025 6:30 AM EDT BASIC METABOLIC PANELPending Inuxooioh03/28/2025 6:30 AM EDT CBCPending Ppteseejz88/28/2025 6:30 AM EDT POCT GLUCOSE METER UNSOLICITED CTBTOLIFzjyikv20/28/2025 6:27 AM EDT HIGH SENSITIVITY TROPONIN IPending Xtzhfcnkv23/28/2025 12:00 AM EDT POCT GLUCOSE METER UNSOLICITED APIXXOWFxpqiig54/27/2025 11:56 PM EDT CTA CHEST W IV DJWVYAGLXZIU77/27/2025 8:55 PM EDT ECG 12-QDKBEXDY38/27/2025 6:15 PM EDT HIGH SENSITIVITY TROPONIN IPending Gvtrmbrvf66/27/2025 6:14 PM EDT POCT GLUCOSE METER UNSOLICITED SSXRFATJnbnotv72/27/2025 5:16 PM EDT C-REACTIVE PROTEINPending Reldvqkns42/27/2025 3:29 PM EDT POCT GLUCOSE METER UNSOLICITED VOEQUOICnjgwyt54/27/2025 12:49 PM EDT SEDIMENTATION RATEAdd-On11/11/2024 6:39 AM EDT BASIC METABOLIC PANELPending Qrbxdblac26/27/2025 6:39 AM EDT CBCPending Ijrgoxwst00/27/2025 6:39 AM EDT POCT GLUCOSE METER UNSOLICITED XRYNNOINfdznly87/27/2025 6:35 AM EDT POCT GLUCOSE METER UNSOLICITED CDYZREUOanpmsw16/27/2025 12:55 AM EDT HIGH SENSITIVITY TROPONIN IPending Pgjbsjvmr03/26/2025 8:50 PM EDT POCT GLUCOSE METER UNSOLICITED QULKROMKjrrtjm71/26/2025 6:24 PM EDT ECG 12-MASFNYST78/26/2025 3:11 PM EDT HIGH SENSITIVITY TROPONIN IPending Gvwxsdehd58/26/2025 2:22 PM EDT POCT GLUCOSE METER UNSOLICITED MLBEELZRuicluo06/26/2025 1:06 PM EDT LEXISCAN STRESS MYOCARDIAL PERFUSION BFBDZPIShouggz95/26/2025 11:23 AM EDT XR CHEST 1 ZTTGJzjuhwv93/26/2025 9:01 AM EDT ECG 12-MELQHymkeqx40/26/2025 8:09 AM EDT HIGH SENSITIVITY TROPONIN ISTAT11/10/2024 7:44 AM EDT POCT GLUCOSE METER UNSOLICITED NKPNIDRZuabzsh71/26/2025 7:39 AM EDT POCT GLUCOSE METER UNSOLICITED GHSIUFYPsgkxzw30/25/2025 9:21 PM EDT POCT GLUCOSE METER UNSOLICITED YZLMNHZMcgcanf41/25/2025 4:12 PM EDT CBC WITH AUTO UITNRWRELISLUkmnyqd38/25/2025 2:09 PM EDT ORIMFDKCXTuttokw67/25/2025 2:09 PM EDT CBC AND QKQJJVYMJNIFKdcepet78/25/2025 2:09 PM EDT BASIC METABOLIC CIVPGNoefwaz14/25/2025 2:09 PM EDT HIGH SENSITIVITY TROPONIN TRsdhwwe97/25/2025 2:09 PM EDT ECG 12-VJBBGyxubav47/25/2025 12:39 PM EDT POCT GLUCOSE METER UNSOLICITED BZKSCCBFcgkdjo37/23/2025 4:00 PM EDT POCT GLUCOSE METER UNSOLICITED PDLNPSEBizqieg86/23/2025 11:55 AM EDT ECG 12-VKFSAkmfbcj53/23/2025 11:48 AM EDT POCT GLUCOSE METER UNSOLICITED YLZGTTKMxlaxpu45/23/2025 7:43 AM EDT UKSYPGW5111/07/2024 6:27 AM EDT HIGH SENSITIVITY TROPONIN ISTAT Add-on11/07/2024 4:50 AM EDT CALCIUM, TGVFELPEmlakuo35/23/2025 4:50 AM EDT UHXWLSZGVTIzhigfp77/23/2025 4:50 AM EDT DIDCAOSLCRoyrnhu65/23/2025 4:50 AM EDT BASIC METABOLIC JUXTVUngsffp88/23/2025 4:50 AM EDT POCT GLUCOSE METER UNSOLICITED HGJMNBYQehrkvd79/22/2025 10:59 PM EDT POCT GLUCOSE METER UNSOLICITED CNKUUAPWkfyvtk79/22/2025 8:22 PM EDT POCT GLUCOSE METER UNSOLICITED MCXHPTGVlejewp20/22/2025 5:05 PM EDT CALCIUM, IONIZEDPending Qydrukfil09/22/2025 12:24 PM EDT POCT GLUCOSE METER UNSOLICITED JBDRSGSOwpjxtk73/22/2025 12:19 PM EDT VASC US LOWER EXTREMITY PSEUDOANEURYSM DUPLEX ADNSOSfriaga27/22/2025 8:24 AM EDT POCT GLUCOSE METER UNSOLICITED PDZHULDHrvzoqe35/22/2025 7:52 AM EDT CBC WITH AUTO DIFFERENTIALPending Airdkthue38/22/2025 5:50 AM EDT CBC AND DOAQRIVRJQUCEmvhdjv19/22/2025 5:50 AM EDT PHOSPHORUSPending Egweebeex77/22/2025 5:50 AM EDT MAGNESIUMPending Omstgfuqt43/22/2025 5:50 AM EDT BASIC METABOLIC PANELPending Neqxvxyrg29/22/2025 5:50 AM EDT POCT GLUCOSE METER UNSOLICITED DVVLUIIBvfdbwo93/21/2025 10:07 PM EDT POCT GLUCOSE METER UNSOLICITED FLCJCKTJruutbc69/21/2025 4:37 PM EDT POCT GLUCOSE METER UNSOLICITED MFVNEOHVcelijb79/21/2025 11:36 AM EDT HEMOGLOBIN AND HEMATOCRIT, BLOODPending Atepvgwvl39/21/2025 9:01 AM EDT POCT GLUCOSE METER UNSOLICITED STBXZMEXseuwko11/21/2025 8:36 AM EDT CBCPending Hlebhbsav53/21/2025 3:48 AM EDT PHOSPHORUSPending Qdpvzadsb29/21/2025 3:48 AM EDT MAGNESIUMPending Zbkesycqf34/21/2025 3:48 AM EDT BASIC METABOLIC PANELPending Wirglotvc55/21/2025 3:48 AM EDT CALCIUM, IONIZEDPending Ocjaaiogm99/21/2025 1:00 AM EDT HEMOGLOBIN AND HEMATOCRIT, BLOODPending Qdvuwastu42/21/2025 12:54 AM EDT POCT GLUCOSE METER UNSOLICITED KJSIDLEMuwkrpd20/20/2025 10:33 PM EDT BASIC METABOLIC PANELSTAT Add-on11/04/2024 8:17 PM EDT HEMOGLOBIN AND HEMATOCRIT, BLOODPending Uyezootts54/20/2025 8:13 PM EDT POCT GLUCOSE METER UNSOLICITED VOPOBSOPuqdyqx70/20/2025 5:12 PM EDT TRANSFUSE RED BLOOD FCUQTBkwprjh08/20/2025 2:34 PM EDTECG 12-QEHZXFFP68/20/2025 1:59 PM EDT HEMOGLOBIN AND HEMATOCRIT, BLOODPending Stsddlxtb31/20/2025 1:38 PM EDT BASIC METABOLIC WYYATYERU35/20/2025 1:38 PM EDT HIGH SENSITIVITY TROPONIN ISTAT11/04/2024 1:38 PM EDT POCT GLUCOSE METER UNSOLICITED CBQSSPAXxfubfq48/20/2025 1:06 PM EDT CTA ABDOMEN PELVIS W IV FRRNODZZZexamea80/20/2025 12:48 PM EDT POCT GLUCOSE METER UNSOLICITED TCBUFGANqzcimt97/20/2025 9:20 AM EDT POCT GLUCOSE METER UNSOLICITED EZIYPMUNaxbbsr09/20/2025 5:10 AM EDT CBCPending Guyqnuzha82/20/2025 5:05 AM EDT CALCIUM, IONIZEDPending Tupeuystv74/20/2025 5:05 AM EDT PHOSPHORUSPending Swglbafit46/20/2025 5:05 AM EDT MAGNESIUMPending Fyvgcowmj03/20/2025 5:05 AM EDT BASIC METABOLIC PANELPending Eugrjfkgi66/20/2025 5:05 AM EDT POCT GLUCOSE METER UNSOLICITED DURFZQRJwuhudl89/20/2025 12:12 AM EDT HEMOGLOBIN AND HEMATOCRIT, BLOODPending Cqaiebbwm28/20/2025 12:09 AM EDT POCT GLUCOSE METER UNSOLICITED VAPFHUDIqwgmlo90/19/2025 9:52 PM EDT HEMOGLOBIN AND HEMATOCRIT, BLOODPending Rmovfclkc40/19/2025 6:34 PM EDT POCT GLUCOSE METER UNSOLICITED MUYYWCOVftavyb96/19/2025 5:35 PM EDT CBCPending Nhuxegcsu64/19/2025 1:23 PM EDT POCT GLUCOSE METER UNSOLICITED LBQUJBPCeixwjl67/19/2025 11:35 AM EDT POCT GLUCOSE METER UNSOLICITED XADUQYENeipoqn48/19/2025 7:46 AM EDT CBCPending Wcmlcduni75/19/2025 4:46 AM EDT CALCIUM, IONIZEDPending Vnyffwxzv30/19/2025 4:46 AM EDT PHOSPHORUSPending Qyfkvbsgv62/19/2025 4:46 AM EDT MAGNESIUMPending Impxxhwby80/19/2025 4:46 AM EDT BASIC METABOLIC PANELPending Tlaauxryd92/19/2025 4:46 AM EDT INTEM LYmhzjjj28/19/2025 1:58 AM EDT HEPTEM IMyqqlqn08/19/2025 1:58 AM EDT EXTEM OXohtueh26/19/2025 1:58 AM EDT FIBTEM LBrymmyr10/19/2025 1:58 AM EDT AFPVSYN1211/03/2024 12:07 AM EDT OMMYOZUSOEBKFY95/19/2025 12:07 AM EDT OVPIKEQJEPSHJ58/19/2025 12:07 AM EDT BASIC METABOLIC GBEGTJYBG46/19/2025 12:07 AM EDT KYONFSGAGCHNBH25/19/2025 12:07 AM EDT PROTIME-BVLUMHO0311/03/2024 12:07 AM EDT POCT GLUCOSE METER UNSOLICITED WFFTRAVSrljhin65/18/2025 10:48 PM EDT TRANSFUSE RED BLOOD VIHZNAnxrqyi92/18/2025 9:30 PM EDTTRANSFUSE RED BLOOD CELLS Ahxlrdx9811/02/2024 9:10 PM EDTPR AN ELECTIVE ENDOTRACHEAL KRHNDATlvwllj93/18/2025 8:56 PM EDT REPAIR, SWMKLARUDBHSXV82/18/2025 8:44 PM EDT Hematoma Right Groin EXPLORATION, JRAUOUIF03/18/2025 8:44 PM EDT Hematoma Right Groin POCT GLUCOSE METER UNSOLICITED JXRMSEDFkjocdo48/18/2025 8:30 PM EDT PREPARE UVAOjxkorr17/18/2025 8:05 PM EDT PREPARE ZXCUkmxeyl72/18/2025 8:05 PM EDT TYPE AND SCREENPending Kjrbbowzb90/18/2025 8:02 PM EDT CBCPending Ekekkbxkp93/18/2025 8:02 PM EDT RED CBHYfllvbx02/18/2025 8:00 PM EDT EXTRA MFMXCFpmzgfg39/18/2025 8:00 PM EDT ACTIVATED CLOTTING SVQCQbkgoly34/18/2025 4:43 PM EDT POCT ACTIVATED CLOTTING PBRWZyxkdhw33/18/2025 4:40 PM EDT POCT ACTIVATED CLOTTING BITLLyvhwlk08/18/2025 4:19 PM EDT ACTIVATED CLOTTING ZYWYCocflcg89/18/2025 4:13 PM EDT ACTIVATED CLOTTING MTOFMvoupfv65/18/2025 2:56 PM EDT INSTANT WAVE FREE RATIO (IFR)Byvhzru8411/02/2024 2:53 PM EDT Spontaneous dissection of coronary artery ULTRASOUND - KQFAABGUCrnwmvh01/18/2025 2:53 PM EDT Spontaneous dissection of coronary artery CORONARY TJNJITQKPUVRjrvsry92/18/2025 2:53 PM EDT Spontaneous dissection of coronary artery ACTIVATED CLOTTING DSBOFurwjjm80/18/2025 2:24 PM EDT ECG 12-LDSQJKNE03/18/2025 1:18 PM EDT HIGH SENSITIVITY TROPONIN ISTAT11/02/2024 1:01 PM EDT POCT GLUCOSE METER UNSOLICITED SMTTLUYCoppqri99/18/2025 11:07 AM EDT POCT GLUCOSE METER UNSOLICITED EAGOPCRHagrafo34/18/2025 7:31 AM EDT LIGHT GREEN ETOJmxvqgi37/18/2025 6:15 AM EDT EXTRA LBDEFWcyygds29/18/2025 6:15 AM EDT CBCPending Dtikxionp07/18/2025 6:15 AM EDT POCT GLUCOSE METER UNSOLICITED AQQBPLQNewimsu25/17/2025 8:42 PM EDT POCT GLUCOSE METER UNSOLICITED XHLODALXzfbexa93/17/2025 6:04 PM EDT ACTIVATED CLOTTING JYSGOhxldel57/17/2025 4:36 PM EDT POCT ACTIVATED CLOTTING ERYDEghhpxt18/17/2025 4:33 PM EDT ULTRASOUND - NEEUATEHOnlfoeb90/17/2025 1:30 PM EDT NSTEMI (non-ST elevated myocardial infarction) (CMS/HCC) CORONARY YTBHLSGEDRKEalscou47/17/2025 1:30 PM EDT NSTEMI (non-ST elevated myocardial infarction) (CMS/HCC) ACTIVATED CLOTTING FQMIJgtvvte34/17/2025 1:27 PM EDT ACTIVATED CLOTTING KQHZJgpwthp79/17/2025 1:14 PM EDT ECG 12-AGYWUvkuvvm34/17/2025 12:09 PM EDT POCT GLUCOSE METER UNSOLICITED ASWGISPImrkjay61/17/2025 11:30 AM EDT BASIC METABOLIC PANELPending Uhztbdizi94/17/2025 10:10 AM EDT LYRRHLB8811/01/2024 10:10 AM EDT POCT GLUCOSE METER UNSOLICITED CVGWZCRHluxkrx61/17/2025 7:43 AM EDT HIGH SENSITIVITY TROPONIN DQgijq5611/01/2024 6:42 AM EDT ANTI-FACTOR XAPending Fvbyyyywj55/17/2025 6:04 AM EDT POCT GLUCOSE METER UNSOLICITED MTVSMJZDbnaavd01/17/2025 6:02 AM EDT TOXICOLOGY PANEL LTUUTHlnzegc78/17/2025 2:12 AM EDT POCT GLUCOSE METER UNSOLICITED YZBSOPMGtwvicl70/16/2025 8:20 PM EDT LEFT HEART IZQBMwuanke93/16/2025 7:34 PM EDT NSTEMI (non-ST elevated myocardial infarction) (CMS/HCC) CORONARY YLVELFECCFDGqyjkyv43/16/2025 7:34 PM EDT NSTEMI (non-ST elevated myocardial infarction) (CMS/HCC) POCT GLUCOSE METER UNSOLICITED VXOFGEUQykqsjy74/16/2025 11:55 AM EDT LIMITED ECHO (TTE) W/ COLOR FLOW AND IMAGING WKVJDYyeujmq42/16/2025 11:40 AM EDT ECG 12-IXGECxhzbfo35/16/2025 8:47 AM EDT ECG 12-AIKHUznddht92/16/2025 8:25 AM EDT POCT GLUCOSE METER UNSOLICITED RNTYRIGUfxygdv60/16/2025 7:22 AM EDT HEMOGLOBIN P2DGgg-Gp92/16/2025 6:27 AM EDT LIPID PANELAdd-On10/31/2024 6:27 AM EDT MAGNESIUMAdd-On10/31/2024 6:27 AM EDT ANTI-FACTOR YCRtbamzf11/16/2025 6:27 AM EDT HYXMfknril30/16/2025 6:27 AM EDT BASIC METABOLIC CAKFGAzyznxg06/16/2025 6:27 AM EDT HIGH SENSITIVITY TROPONIN MKkgjl3610/31/2024 6:27 AM EDT ANTI-FACTOR FBWftynna36/16/2025 1:38 AM EDT HIGH SENSITIVITY TROPONIN ZLybuw6610/31/2024 1:38 AM EDT POCT GLUCOSE METER UNSOLICITED QDPWQSNQvlhinr28/15/2025 9:12 PM EDT ECG 12-EIOYHNWU02/15/2025 8:00 PM EDT ANTI-FACTOR XASTAT Add-on10/30/2024 7:11 PM EDT PJGOSMCO66/15/2025 7:11 PM EDT TSH3 REFLEX TO PS8QGQW0010/30/2024 7:11 PM EDT CBC WITH AUTO OPYXFEUSFFTMVPRH65/15/2025 7:11 PM EDT B-TYPE NATRIURETIC QSYRELFEJZY82/15/2025 7:11 PM EDT CBC AND SIRGRXMZPSYCVJCM65/15/2025 7:11 PM EDT PROTIME-QLHATYS9210/30/2024 7:11 PM EDT QBMMPHXOUIZNME24/15/2025 7:11 PM EDT HIGH SENSITIVITY TROPONIN ISTAT10/30/2024 7:11 PM EDT GGWNHUJDSQUMU49/15/2025 7:11 PM EDT COMPREHENSIVE METABOLIC MVCJSPFNV22/15/2025 7:11 PM EDT from Last 3 Months Results * POCT glucose meter (12/21/2024 11:46 AM EST) Only the most recent of64 resultswithin the time period is included. ComponentValueRef RangeTest MethodAnalysis TimePerformed AtPathologist Signature Glucose IUZ18310 - 105 mg/dL12/21/2024 12:16 PM [facility] Comment:elacumskySpecimen (Source)Anatomical Location / LateralityCollection Method / VolumeCollection TimeReceived TimeBloodCapillary blood specimen / Dcrfxqo7012/21/2024 11:46 AM EST12/21/2024 12:16 PM EST Narrative [facility] ([facility]) - 12/21/2024 12:16 PM EST Waived Testing in the ED is performed under the ED CLIA certificate #[id number]. Authorizing ProviderResult TypeResult StatusMallory Tyler ROBLERO BLOOD ORDERABLESFinal ResultPerforming OrganizationAddressCity/State/ZIP CodePhone Number [facility]) [address] [place] [address] * (ABNORMAL) CBC (12/21/2024 5:11 AM EST) Only the most recent of20 resultswithin the time period is included. ComponentValueRef RangeTest MethodAnalysis TimePerformed AtPathologist Signature Auto WBC2.92(L)4.00 - 10.60 10*3/uL12/21/2024 5:49 AM [facility] ([facility])RBC3.19(L)3.80 - 5.00 10*6/uL12/21/2024 5:49 AM [facility] ([facility])Hemoglobin9.5(L)12.0 - 15.0 g/dL12/21/2024 5:49 AM [facility] ([facility])Ktwyiedpbl92.7(L)36.0 - 45.0 %12/21/2024 5:49 AM [facility] ([facility])MCV90.082.0 - 98.0 fL12/21/2024 5:49 AM [facility] ([facility])MCH 29.827.0 - 33.0 pg12/21/2024 5:49 AM [facility] ([facility])MCHC33.132.0 - 35.0 g/dL12/21/2024 5:49 AM [facility] ([facility])RDW15.5(H)11.5 - 15.0 % 12/21/2024 5:49 AM [facility] ([facility])Ilfvovhfw953965 - 400 10*3/uL 12/21/2024 5:49 AM [facility] ([facility])Specimen (Source)Anatomical Location / LateralityCollection Method / VolumeCollection TimeReceived TimeBlood Venous blood specimen / UnknownExisting Catheter / Uvdxfpp1012/21/2024 5:11 AM EST 12/21/2024 5:34 AM EST Narrative Authorizing ProviderResult TypeResult StatusDalun Nile JOHNSONLAB BLOOD ORDERABLES Final ResultPerforming OrganizationAddressCity/State/ZIP CodePhone Number [facility] ([facility]) [address] [place] [address] * (ABNORMAL) Basic metabolic panel (12/21/2024 5:11 AM EST) Only the most recent of19 resultswithin the time period is included. ComponentValueRef RangeTest MethodAnalysis TimePerformed AtPathologist Signature Jxcytk339067 - 145 mmol/L102/21/2024 6:20 AM [facility] ([facility]) Potassium3.93.5 - 5.1 mmol/L102/21/2024 6:20 AM [facility] ([facility]) Vqewcejw14130 - 107 mmol/L102/21/2024 6:20 AM [facility] ([facility])CO228 21 - 31 mmol/L102/21/2024 6:20 AM [facility] ([facility])HFO903 - 25 mg/dL 12/21/2024 6:20 AM [facility] ([facility])Creatinine0.55(L)0.60 - 1.20 mg/dL12/21/2024 6:20 AM [facility] ([facility])Dmoetjb685(H)70 - 100 mg/dL 12/21/2024 6:20 AM [facility] ([facility])Calcium8.0(L)8.6 - 10.3 mg/dL 12/21/2024 6:20 AM [facility] ([facility])Anion Jbx451 - 20 mmol/L 12/21/2024 6:20 AM [facility] ([facility])bMGD803.5>60.0 mL/min/1.73m*2 12/21/2024 6:20 AM [facility] ([facility])Comment:[facility]???s estimated glomerular filtration rate (eGFR) will [...] group of individuals. BUN/Creatinine Ratio21.8102/21/2024 6:20 AM [facility] ([facility])Specimen (Source)Anatomical Location / LateralityCollection Method / VolumeCollection TimeReceived TimeBloodVenous blood specimen / UnknownExisting Catheter / Unknown 12/21/2024 5:11 AM EST12/21/2024 5:34 AM EST Narrative Authorizing ProviderResult TypeResult StatusDajermaine ROBLERO BLOOD ORDERABLES Final ResultPerforming OrganizationAddressCity/State/ZIP CodePhone Number [facility] ([facility]) [address] [place] [address] * CT abdomen pelvis w IV contrast [...] Electronically signed: Rai Crespo. Authorizing ProviderResult TypeResult StatusJadyan Barbour PA-CIMG CT PROCEDURES Final Result * ECG 12 lead (12/20/2024 12:22 PM EST) Only the most recent of15 resultswithin the time period is included. ComponentValueRef RangeTest MethodAnalysis TimePerformed AtPathologist Signature Ventricular Tehs73XZGGA MUSEAtrial Tbmk49UDFHU MUSEPR Xkekjshy062sfDZ MUSEQRS BFJQJHYQ21ttTZ MUSEQT Pebgsywx873wgFG MUSEQTC CALCULATION(BAZETT)472msGE MUSEP Tgbz87rdwstmwYX MUSER-Mqna79lqsnhwaVA MUSET Wave Uryn17uxlcazyRK MUSESpecimen (Source)Anatomical Location / LateralityCollection Method / [...] AtPathologist SignatureLactate1.60.5 - 2.2 mmol/L102/20/2024 11:16 AM [facility] ([place])Specimen (Source) Anatomical Location / LateralityCollection Method / VolumeCollection Time Received TimeBloodVenous blood specimen / UnknownExisting Catheter / Unknown 12/20/2024 10:20 AM EST12/20/2024 10:31 AM EST Narrative Authorizing ProviderResult TypeResult StatusJamicatina Barbour PA-CLAB BLOOD ORDERABLESFinal ResultPerforming OrganizationAddressCity/State/ZIP CodePhone Number [facility] ([place]) [address] [place] [address] * Iron and TIBC (12/20/2024 6:29 AM EST)ComponentValueRef RangeTest Method Analysis TimePerformed AtPathologist PywnyzjhsUeqt4545 - 212 ug/dL12/20/2024 9:44 AM [facility] ([facility])VEIQ746094 - 450 ug/dL12/20/2024 9:44 AM [facility] ([facility])Iron Mtzsbstedt5017 - 50 %12/20/2024 9:44 AM EST [facility] ([facility])MENQ352.0155.0 - 355.0 ug/dL12/20/2024 9:44 AM EST [facility] ([facility])Specimen (Source)Anatomical Location / Laterality Collection Method / VolumeCollection TimeReceived TimeBloodVenous blood specimen / UnknownExisting Catheter / Ncntqvm1412/20/2024 6:29 AM EST12/20/2024 6:29 AM EST Narrative Authorizing ProviderResult TypeResult StatusChrisadalberto Collins [facility] BLOOD ORDERABLESFinal ResultPerforming OrganizationAddressCity/State/ZIP CodePhone Number [facility]) [address] [place] [address] * Phosphorus (12/20/2024 6:29 AM EST) Only the most recent of9 resultswithin the time period is included. ComponentValueRef RangeTest MethodAnalysis TimePerformed AtPathologist Signature Phosphorus2.72.5 - 5.0 mg/dL12/20/2024 6:59 AM [facility]) Specimen (Source)Anatomical Location / LateralityCollection Method / Volume Collection TimeReceived TimeBloodVenous blood specimen / UnknownExisting Catheter / Umjktnf5912/20/2024 6:29 AM EST12/20/2024 6:29 AM EST Narrative Authorizing ProviderResult TypeResult StatusDajermaine Dowd [facility] BLOOD ORDERABLES Final ResultPerforming OrganizationAddressCity/State/ZIP CodePhone Number [facility]) [address] [place] [address] * [place] small bowel series (12/19/2024 1:15 [...] from internal hernia repair Comparison: None. Findings: [employer] image demonstrates enteric catheter tip in the stomach with a nonspecific bowel gas pattern. There is contrast seen within the colon at 4 hours compatible with no high-grade or complete small bowel obstruction. Procedure Note Ty Meyer MD - 12/19/2024 Report Study: FL SMALL BOWEL SERIES Sign And Symptoms:Abdominal pain. Bowel obstruction. . post op frominternal hernia repair Comparison: None. Findings: [employer] image demonstrates enteric catheter tip in the stomach with anonspecific bowel gas pattern. There is contrast seen within the colon at 4 hourscompatible with no high-grade or complete small bowel obstruction. IMPRESSION: Impression: *Contrast seen in the colon at 4 hours compatible with no high-grade or complete small bowel obstruction. Electronically signed: Ty Meyer. Authorizing ProviderResult TypeResult Мария CALVILLO FLUOROSCOPY PROCEDURESFinal Result * Magnesium (12/19/2024 7:49 AM EST) Only the most recent of11 resultswithin the time period is included. ComponentValueRef RangeTest MethodAnalysis TimePerformed AtPathologist Signature Magnesium2.01.9 - 2.7 mg/dL12/19/2024 9:55 AM [facility]) Specimen (Source)Anatomical Location / LateralityCollection Method / Volume Collection TimeReceived TimeBloodVenous blood specimen / UnknownExisting Catheter / Bdnretl2312/19/2024 7:49 AM EST12/19/2024 8:14 AM EST Narrative Authorizing ProviderResult TypeResult StatusBenja ROBLERO BLOOD ORDERABLES Final ResultPerforming OrganizationAddressCity/State/ZIP CodePhone Number [facility]) [address] [place] [address] * [place] AN ELECTIVE ENDOTRACHEAL AIRWAY (12/18/2024 7:16 PM EST) Narrative Ayanna Mims CAA - 12/18/2024 7:16 PM EST [place] Jones 12/18/2024 7:24 PM Airway Date/Time: 12/18/2024 7:16 PM Reason: elective Airway not difficult General Information and Staff Patient location during procedure: [place] Anesthesiologist: Josue Walters MD Resident/THOMAS/[place]: [place] Jones Performed: resident/CIRCUIT DESIGNER/[place] Patient Condition Indications for airway management: anesthesia [...] other approaches attempted: 0 Authorizing ProviderResult TypeResult StatusAnthdale Walters MDANESTHESIA ORDERABLESFinal Result * XR transfer of outside films (12/18/2024 1:10 PM EST) Only the most recent of4 resultswithin the time period is included. Specimen (Source)Anatomical Location / LateralityCollection Method / Volume Collection TimeReceived Time Narrative IMAGING - 12/18/2024 1:10 PM EST This order has been auto-finalized and does not contain a result. Authorizing ProviderResult TypeResult StatusBneja Dowd MDGRIFF[facility] XR PROCEDURESFinal ResultPerforming OrganizationAddressty/State/ZIP CodePhone Number IMAGING * CT transfer of outside films (12/18/2024 1:10 PM EST) Only the most recent of5 resultswithin the time period is included. Specimen (Source)Anatomical Location / LateralityCollection Method / Volume Collection TimeReceived Time Narrative IMAGING - 12/18/2024 1:10 PM EST This order has been auto-finalized and does not contain a result. Authorizing ProviderResult TypeResult StatusBenja Dowd MDGRIFFIN [facility] CT PROCEDURESFinal ResultPerforming OrganizationAddressty/State/ZIP CodePhone Number IMAGING * (ABNORMAL) Comprehensive metabolic panel (12/17/2024 1:05 PM EST) Only the most recent of3 resultswithin the time period is included. ComponentValueRef RangeTest MethodAnalysis TimePerformed AtPathologist Signature [id number] - 145 mmol/L102/17/2024 1:29 PM [facility] ([facility]) Potassium3.0(L)3.5 - 5.1 mmol/L102/17/2024 1:29 PM [facility] ([facility]) Btpcwihq021(H)98 - 107 mmol/L102/17/2024 1:29 PM [facility] ([facility])CO2 2321 - 31 mmol/L102/17/2024 1:29 PM [facility] ([facility])Anion Gap97 - 20 mmol/L102/17/2024 1:29 PM [facility] ([facility])AWO417 - 25 mg/dL 12/17/2024 1:29 PM [facility] ([facility])Creatinine0.59(L)0.60 - 1.20 mg/dL12/17/2024 1:29 PM [facility] ([facility])BUN/Creatinine Ratio22.0 12/17/2024 1:29 PM [facility] ([facility])Zzhaoah4008 - 100 mg/dL 12/17/2024 1:29 PM [facility] ([facility])Calcium7.8(L)8.6 - 10.3 mg/dL 12/17/2024 1:29 PM [facility] ([facility])NUU0962 - 39 U/L102/17/2024 1:29 PM [facility] ([facility])ALT (SGPT)157 - 52 U/L102/17/2024 1:29 PM [facility] ([facility])Alkaline Dbbyxwoabwt1978 - 104 U/L102/17/2024 1:29 PM [facility] ([facility])Total Protein5.4(L)6.0 - 8.3 g/dL12/17/2024 1:29 PM [facility] ([facility])Albumin3.4(L)3.5 - 5.7 g/dL12/17/2024 1:29 PM [facility] ([facility])Total Bilirubin0.40.3 - 1.0 mg/dL12/17/2024 1:29 PM [facility]jFRF315.5>60.0 mL/min/1.73m* 1:29 PM EST [facility] ([place])Comment:[facility]???s estimated glomerular filtration rate (eGFR) will [...] EST Narrative Authorizing ProviderResult TypeResult StatusMallory Tyler [facility] BLOOD ORDERABLESFinal ResultPerforming OrganizationAddressCity/State/ZIP CodePhone Number [facility] ([place]) [address] [place] [address] * XR chest 1 view (12/17/2024 12:58 [...] balloon dilation up to 20 mm at [facility] that was performed in September [...] MethodAnalysis TimePerformed AtPathologist SignatureCase ReportSurgical Pathology ?Case: [id number] ? Authorizing Provider: ??Braxton Bellamy MD ? Collected: ? 12/14/2024 0949 ? Ordering Location: ? [facility] ? Received: ?12/15/2024 0826 ? [facility]oscopy ? Pathologist: ? Pete Bolanos MD ? Specimen: ?Gastric, gastric Bx to r/o H-Pylori ? 12/19/2024 3:29 PM [facility])Final DiagnosisStomach, biopsy: Gastric mucosa with focal erosion. No Helicobacter pylori identified, immunohistochemical stain with control. No intestinal metaplasia, dysplasia or malignancy identified.12/19/2024 3:29 PM [facility]) [facility] [address] [facility] Centerinical InformationOrder Diagnoses K83.8 - Common bile duct dilatation [ICD-10-CM] 12/19/2024 3:29 PM [facility])Gross DescriptionA. Gastric. Received in formalin labeled Juan Garcia, Gastric BX to R/O H- pylori, handwritten: G are five renner ragged mucosal bits, 0.1 to 0.3 cm. The specimen is filtered and entirely submitted in a single cassette. Sabina Seay, Pathologists' Alsunnpix42/04/2025 3:29 PM [facility] ([facility])Microscopic DescriptionMicroscopic examination performed.12/19/2024 3:29 PM [facility] ([facility])DisclaimerThe interpretation of this case included the [...] Laboratory Improvement Amendments of 1998.12/19/2024 3:29 PM [facility] ([facility])Specimen (Source)Anatomical Location / Laterality Collection Method / VolumeCollection TimeReceived TimeBiopsy (Gastric)12/14/2024 9:49 AM EDT1 8:26 AM EDT Narrative Authorizing ProviderResult TypeResult StatusAli Mia ROBLERO PATHOLOGY ORDERABLESFinal ResultPerforming OrganizationAddressCity/State/ZIP CodePhone Number [facility] ([place]) [address] [place] [address] * [place] AN ELECTIVE ENDOTRACHEAL AIRWAY (12/14/2024 9:25 AM EDT) Narrative Olga Abdullahi CAA - 12/14/2024 9:25 AM EDT [place] Restrepo 12/14/2024 9:33 AM Airway Date/Time: 12/14/2024 9:25 AM Reason: elective Airway not difficult General Information and Staff Patient location during procedure: [place] Anesthesiologist: Sergei Randall MD Resident/CIRCUIT DESIGNER/CAA: [place] Restrepo Performed: resident/CIRCUIT DESIGNER/CAA Patient Condition Indications for airway management: anesthesia [...] Total Bilirubin0.30.3 - 1.0 mg/dL12/14/2024 8:26 AM [facility] ([facility])Bilirubin, Direct0.10 - 0.2 mg/dL12/14/2024 8:26 AM [facility] ([facility])Alkaline Uaotuekzmmq5799 - 104 U/L1 8:26 AM [facility] ([facility])EIM1446 - 39 U/L1 8:26 AM [facility] ([facility])ALT (SGPT)147 - 52 U/L1 8:26 AM [facility] ([facility])Total Protein 6.26.0 - 8.3 g/dL12/14/2024 8:26 AM [facility] ([facility])Albumin3.83.5 - 5.7 g/dL12/14/2024 8:26 AM [facility] ([facility])Specimen (Source) Anatomical Location / LateralityCollection Method / VolumeCollection Time Received TimeBloodVenous blood specimen / UnknownExisting Catheter / Unknown 12/14/2024 7:40 AM EDT1 7:49 AM EDT Narrative Authorizing ProviderResult TypeResult StatusKarmen ROBLERO BLOOD ORDERABLESFinal ResultPerforming OrganizationAddressCity/State/ZIP CodePhone Number [facility] ([facility]) [address] [place] [address] * Urinalysis microscopic with reflex culture (11/26/2024 8:27 PM EDT)Component ValueRef RangeTest MethodAnalysis TimePerformed AtPathologist SignatureRBC, Urine0-2None Seen, 0-2 /HPF11/26/2024 8:52 PM [facility] ([facility]) WBC, Urine0-2None Seen, 0-2 /HPF11/26/2024 8:52 PM [facility] ([facility])Squamous Epithelial, UrineNone SeenNone Seen, Occasional, Few /LPF 11/26/2024 8:52 PM [facility] ([facility])Mucus, UrineOccasionalNone Seen, Occasional, Few /LP11/26/2024 8:52 PM [facility] ([facility]) Specimen (Source)Anatomical Location / LateralityCollection Method / Volume Collection TimeReceived TimeUrineUrine specimen obtained by clean catch procedure / UnknownNon-blood Collection / Nkayioo0711/26/2024 8:27 PM EDT 11/26/2024 8:33 PM EDT Narrative Authorizing ProviderResult TypeResult StatusDustin Jean-Paul ANNIKA URINE ORDERABLES Final ResultPerforming OrganizationAddressCity/State/ZIP CodePhone Number [facility] ([facility]) [address] [place] [address] * (ABNORMAL) Urinalysis with reflex culture (11/26/2024 8:27 PM EDT)Component ValueRef RangeTest MethodAnalysis TimePerformed AtPathologist SignatureColor, UrineDark-Yellow(A)Colorless, Yellow, Light-Bapsvz8111/26/2024 8:52 PM [facility] ([facility])Clarity, WtmkjZejgsOoyjl28/12/2025 8:52 PM [facility] ([facility])pH, Urine7.05.0 - 8.0 pH11/26/2024 8:52 PM [facility] ([facility])Leukocytes, UrineTrace(A)Dllmhhhx50/12/2025 8:52 PM EDT [facility] ([facility])Nitrite, UrinePositive(A)Oazdrvrf33/12/2025 8:52 PM [facility] ([facility])Protein, UrineNegativeNegative mg/dL11/26/2024 8:52 PM [facility] ([facility])Glucose, UrineNormalNormal mg/dL 11/26/2024 8:52 PM [facility] ([facility])Bilirubin, UrineSmall(A) Uopmvhfs77/12/2025 8:52 PM [facility] ([facility])Specific Mathews, Urine1.0181.010 - 1.3218811/26/2024 8:52 PM [facility] ([facility]) Ketones, UrineNegativeNegative mg/dL11/26/2024 8:52 PM [facility] ([facility])Blood, SleziBrqeozqgXbvbbgdo27/12/2025 8:52 PM [facility] ([facility])Urobilinogen, Urine4.0(A)Normal mg/dL11/26/2024 8:52 PM [facility] ([facility])Specimen (Source)Anatomical Location / Laterality Collection Method / VolumeCollection TimeReceived TimeUrineUrine specimen obtained by clean catch procedure / UnknownNon-blood Collection / Unknown 11/26/2024 8:27 PM EDT1 8:33 PM EDT Narrative Authorizing ProviderResult TypeResult StatusDustin Jean-Paulladi ROBLERO URINE ORDERABLES Final ResultPerforming OrganizationAddressCity/State/ZIP CodePhone Number [facility] ([facility]) [address] [place] [address] * Serum Qualitative (11/26/2024 8:27 PM EDT)ComponentValueRef Range Test MethodAnalysis TimePerformed AtPathologist SignaturehCG, SerumNegative 11/26/2024 8:51 PM [facility] ([facility])Specimen (Source)Anatomical Location / LateralityCollection Method / VolumeCollection TimeReceived Time BloodVenous blood specimen / UnknownExisting Catheter / Hkqgqch9611/26/2024 8:27 PM EDT1 8:33 PM EDT Narrative Authorizing ProviderResult TypeResult StatusDustin Jean-Paul ROBLERO BLOOD ORDERABLES Final ResultPerforming OrganizationAddressCity/State/ZIP CodePhone Number [facility] ([facility]) [address] [place] [address] * HS Troponin I (11/26/2024 8:05 PM EDT) Only the most recent of21 resultswithin the time period is included. ComponentValueRef RangeTest MethodAnalysis TimePerformed AtPathologist Signature High Sensitivity Troponin I<2<15 ng/L1 8:42 PM [facility] ([facility])Specimen (Source)Anatomical Location / LateralityCollection Method / VolumeCollection TimeReceived TimeBloodVenous blood specimen / UnknownExisting Catheter / Onzebhw4511/26/2024 8:05 PM EDT1 8:13 PM EDT Narrative Authorizing ProviderResult TypeResult StatusDustin Jean-Paul ANNIKA BLOOD ORDERABLES Final ResultPerforming OrganizationAddressCity/State/ZIP CodePhone Number [facility] ([facility]) [address] [place] [address] * (ABNORMAL) CBC auto differential (11/26/2024 8:05 PM EDT) Only the most recent of4 resultswithin the time period is included. ComponentValueRef RangeTest MethodAnalysis TimePerformed AtPathologist Signature Auto WBC5.234.00 - 10.60 10*3/uL11/26/2024 8:18 PM [facility] ([facility]) RBC3.37(L)3.80 - 5.00 10*6/uL11/26/2024 8:18 PM [facility] ([facility]) Hemoglobin9.9(L)12.0 - 15.0 g/dL11/26/2024 8:18 PM [facility] ([facility])Yfmsifrdme37.9(L)36.0 - 45.0 %11/26/2024 8:18 PM [facility] ([facility])MCV88.782.0 - 98.0 fL11/26/2024 8:18 PM [facility] ([facility])MCH 29.427.0 - 33.0 pg11/26/2024 8:18 PM [facility] ([facility])MCHC33.132.0 - 35.0 g/dL11/26/2024 8:18 PM [facility] ([facility])RDW14.011.5 - 15.0 % 11/26/2024 8:18 PM [facility] ([facility])Neutrophils %44.540.0 - 72.0 % 11/26/2024 8:18 PM [facility] ([facility])Lymphocytes %40.520.0 - 45.0 % 11/26/2024 8:18 PM [facility] ([facility])Monocytes %10.95.0 - 12.0 % 11/26/2024 8:18 PM [facility] ([facility])Eosinophils %3.10.0 - 6.0 % 11/26/2024 8:18 PM [facility] ([facility])Basophils %0.80.0 - 1.0 % 11/26/2024 8:18 PM [facility] ([facility])Neutrophils Absolute2.331.60 - 7.60 10*3/uL11/26/2024 8:18 PM [facility] ([facility])Lymphocytes Absolute 2.121.20 - 4.00 10*3/uL11/26/2024 8:18 PM [facility] ([facility])Monocytes Absolute0.570.10 - 1.00 10*3/uL11/26/2024 8:18 PM [facility] ([facility]) Eosinophils Absolute0.160.00 - 0.50 10*3/uL11/26/2024 8:18 PM [facility] ([facility])Basophils Absolute0.040.00 - 0.20 10*3/uL11/26/2024 8:18 PM [facility])Ljazagcct989105 - 400 10*3/uL11/26/2024 8:18 PM [facility] ([facility])nRBC %0.00 %11/26/2024 8:18 PM [facility] ([facility])Immature Granulocytes %0.20.0 - 1.0 %11/26/2024 8:18 PM [facility] ([facility])Immature Granulocytes Absolute0.010.00 - 0.20 10*3/uL11/26/2024 8:18 PM [facility])Specimen (Source)Anatomical Location / LateralityCollection Method / VolumeCollection TimeReceived TimeBloodVenous blood specimen / UnknownExisting Catheter / Chmecoh3011/26/2024 8:05 PM EDT 11/26/2024 8:13 PM EDT Narrative Authorizing ProviderResult TypeResult StatusDustin Jean-Paulladi ROBLERO BLOOD ORDERABLES Final ResultPerforming OrganizationAddressCity/State/ZIP CodePhone Number [facility] ([place]) [address] [place] [address] * Lipase (11/26/2024 8:05 PM EDT)ComponentValueRef RangeTest MethodAnalysis Time Performed AtPathologist ZlydufvwdQyrnsw5603 - 82 U/L1 8:36 PM [facility] ([facility])Specimen (Source)Anatomical Location / Laterality Collection Method / VolumeCollection TimeReceived TimeBloodVenous blood specimen / UnknownExisting Catheter / Icuhnhk7911/26/2024 8:05 PM EDT1 8:13 PM EDT Narrative Authorizing ProviderResult TypeResult StatusDustin Jean-Paul ROBLERO BLOOD ORDERABLES Final ResultPerforming OrganizationAddressCity/State/ZIP CodePhone Number [facility] ([place]) [address] [place] [address] * MR abdomen wo contrast MRCP (11/16/2024 [...] Carmela JOHNSONIMJarrod MRI PROCEDURES Final Result * CTA Chest [...] signed: Rebecca Solano. Authorizing ProviderResult TypeResult StatusMarky KOOG CT PROCEDURES Final Result * (ABNORMAL) C-reactive protein (11/11/2024 3:29 PM EDT)ComponentValueRef Range Test MethodAnalysis TimePerformed AtPathologist AriaguwnjIDU61.4(H)<=5.0 mg/L 11/13/2024 10:24 AM [facility] ([facility])Comment:Testing performed using a new methodology, turbidimetry. Normal ranges have been updated. Old normal range was <8 mg/L.Specimen (Source)Anatomical Location / Laterality Collection Method / VolumeCollection TimeReceived TimeBloodVenous blood specimen / UnknownExisting Catheter / Jgzxgug7811/11/2024 3:29 PM EDT11/11/2024 3:42 PM EDT Narrative Authorizing ProviderResult TypeResult StatusJonelle Harrison [facility] BLOOD ORDERABLESFinal ResultPerforming OrganizationAddressCity/State/ZIP CodePhone Number [facility]) [address] [place] [address] * (ABNORMAL) Sedimentation rate (11/11/2024 6:39 AM EDT)ComponentValueRef Range Test MethodAnalysis TimePerformed AtPathologist SignatureSed Rate20(H)<20 mm/hr11/11/2024 12:20 PM [facility] ([facility])Specimen (Source) Anatomical Location / LateralityCollection Method / VolumeCollection Time Received TimeBloodVenous blood specimen / UnknownExisting Catheter / Unknown 11/11/2024 6:39 AM EDT11/11/2024 6:43 AM EDT Narrative Authorizing ProviderResult TypeResult StatusJonelle Harrison [facility] BLOOD ORDERABLESFinal ResultPerforming OrganizationAddressCity/State/ZIP CodePhone Number [facility] ([facility]) [address] [place] [address] * LEXISCAN STRESS MYOCARDIAL PERFUSION IMAGING (11/10/2024 11:23 AM EDT) Anatomical RegionLateralityModalityOtherSpecimen (Source)Anatomical Location / LateralityCollection Method / VolumeCollection TimeReceived Time11/10/2024 11:14 AM EDT Addenda Addendum by Mitul Zheng MD on 11/10/2024 4:35 PM EDT 1 1 [facility] Heart Station [address] [place] [address] [phone] (fax) Lexiscan Stress Myocardial Perfusion Imaging- [facility] Name: JUAN GARCIA Study Date: 11/10/2024 11:14 AM B/P: / HR: Date of : 1990 Location: [facility] Height: 65 in. Age: 34 [...] Lexiscan Exercise Time: 03:02 Device: Treadmill HR [place] Used: 21.00 % HR Recovery: 2 bpm Frequent VE: 1 VE/min Resolution: Persisted Max HR: 98 bpm Target HR: 157 bpm Achieved: No Resting HR: 68 bpm Max Predicted HR: 185 bpm Achv. of Max Predicted: 52 % BP Max: 105/71 BP at Rest: 105/71 Max RPP: 10007 mmHg*bpm Max ST Lead: III Max ST Phase: Infusion Stage No. in Phase: [address] Stage: INFUS2:[address] Amplitude: -0.[address] [place]: -0.670 mV/s Max ST Time in Phase: [...] 1.00 mets 67 bpm 105/71 0.250 mm ZXEFS0YHG 00:30 1.00 mets 90 bpm 102/70 0.400 [...] 4 - Aneurysmal Procedure Staff Reading Group: [facility] Referring Physician: BRITT ALAS Stress Embossed Or Impressed Lettering Painter: [place] ??Nurse Reviewer: Lauren Sanchze ??Ordering Physician: BACILIO PEÑA ??Advanced Practitioner: CRISTINA Gibson ??Nurse: Evelyne Abrams ?? Narrative 11/10/2024 4:35 PM EDT 1 1 [facility] Heart Station [address] [place] [address] [phone] (fax) [facility] Stress Myocardial Perfusion Imaging- [facility] Name: JUAN GARCIA Study Date: 11/10/2024 11:14 AM B/P: / HR: Date of : 1990 Location: [facility] Height: 65 in. Age: 34 [...] Lexiscan Exercise Time: 03:02 Device: Treadmill HR [place] Used: 21.00 % HR Recovery: 2 bpm Frequent VE: 1 VE/min Resolution: Persisted Max HR: 98 bpm Target HR: 157 bpm ?? Achieved: No Resting HR: 68 bpm Max Predicted HR: 185 bpm Achv. of Max Predicted: 52 % BP Max: 105/71 BP at Rest: 105/71 Max RPP: 43013 mmHg*bpm Max ST Lead: III Max ST Phase: Infusion Stage No. in Phase: [address] Stage: INFUS2:[address] Amplitude: -0.[address] [place]: -0.670 mV/s Max ST Time in Phase: [...] 1.00 mets 67 bpm 105/71 0.250 mm VZDCG2DAA 00:30 1.00 mets 90 bpm 102/70 0.400 [...] 4 - Aneurysmal Procedure Staff Reading Group: [facility] Referring Physician: BRITT ALAS ??Stress Embossed Or Impressed Lettering Painter: [place] ??Nurse Reviewer: Lauren Sanchez Ordering Physician: BACILIO PEÑA ??Advanced Practitioner: CRISTINA Gibson ??Nurse: Evelyne Raudel Wott ?? Resting Perfusion Procedure Note Mitul Zheng MD - 11/10/2024 1 1 [facility] [address] [place] [address] [phone] (fax) Lexiscan Stress Myocardial Perfusion Imaging- [facility] Name: JUAN GARCIA Study Date: 11/10/2024 11:14 AM B/P: / HR: Date of : 1990 Location: [facility] Height: 65 in. Age: 34 [...] Lexiscan Exercise Time: 03:02 Device: Treadmill HR [place] Used: 21.00 % HR Recovery: 2 bpm Frequent VE: 1 VE/min Resolution: Persisted Max HR: 98 bpm Target HR: 157 bpm Achieved: No Resting HR: 68 bpm Max Predicted HR: 185 bpm Achv. of Max Predicted: 52 % BP Max: 105/71 BP at Rest: 105/71 Max RPP: 03732 mmHg*bpm Max ST Lead: III Max ST Phase: Infusion Stage No. in Phase: [address] Stage: INFUS2:[address] Amplitude: -0.[address] [place]: -0.670 mV/s Max ST Time in Phase: [...] 1.00 mets 67 bpm 105/71 0.250 mm MLMWC4VAM 00:30 1.00 mets 90 bpm 102/70 0.400 [...] 4 - Aneurysmal Procedure Staff Reading Group: [facility] Referring Physician: BRITT ALAS Stress Embossed Or Impressed Lettering Painter: [place] Nurse Reviewer: Lauren Sanchez Ordering Physician: BACILIO PEÑA Advanced Practitioner: CRISTINA Gibson Nurse: Evelyne Abrams Resting Perfusion Authorizing ProviderResult TypeResult StatusBacilio Peña [facility] STRESS PROCEDURES Edited Result - Final * Calcium, ionized (11/07/2024 4:50 AM EDT) Only the most recent of5 resultswithin the time period is included. ComponentValueRef RangeTest MethodAnalysis TimePerformed AtPathologist Signature Calcium, Ion1.161.15 - 1.33 mmol/L11/07/2024 5:43 AM [facility] Specimen (Source)Anatomical Location / LateralityCollection Method / Volume Collection TimeReceived TimeBloodVenous blood specimen / UnknownExisting Catheter / Zxlxunc6011/07/2024 4:50 AM EDT11/07/2024 5:38 AM EDT Narrative Authorizing ProviderResult TypeResult Brandon [facility] BLOOD ORDERABLES Final ResultPerforming OrganizationAddressCity/State/ZIP CodePhone Number [facility] RESPIRATORY THERAPY [address] [place] [address], [place] * [facility] Lower Extremity Pseudoaneurysm Duplex Right (11/06/2024 [...] arterial segments and vein Authorizing ProviderResult TypeResult StatusKellitanya [facility]MAN-[facility] CV VASCULAR PROCEDURESFinal Result * (ABNORMAL) Hemoglobin and hematocrit, blood (11/05/2024 9:01 AM EDT) Only the most recent of6 resultswithin the time period is included. ComponentValueRef RangeTest MethodAnalysis TimePerformed AtPathologist Signature Hemoglobin9.4(L)12.0 - 15.0 g/dL11/05/2024 9:24 AM [facility] ([facility]) Hmmsnfslth00.5(L)36.0 - 45.0 %11/05/2024 9:24 AM [facility] ([facility]) Specimen (Source)Anatomical Location / LateralityCollection Method / Volume Collection TimeReceived TimeBloodVenous blood specimen / UnknownExisting Catheter / Bhpdgsm6311/05/2024 9:01 AM EDT11/05/2024 9:09 AM EDT Narrative Authorizing ProviderResult TypeResult StatusTomasa Disla MDLAB BLOOD ORDERABLESFinal ResultPerforming OrganizationAddressCity/State/ZIP CodePhone Number [facility] ([place]) [address] [place] [address] * Transfuse RBC (11/04/2024 4:57 PM EDT) Only the most recent of3 resultswithin the time period is included. Narrative Authorizing ProviderResult TypeResult Fab Disla MDBLOOD TRANSFUSION ORDERABLESFinal Result * CTA [...] signed: Raegan Quinn. Authorizing ProviderResult TypeResult StatusKellilyladi [facility] CT PROCEDURES Final Result * HEPTEM C (11/03/2024 1:58 AM EDT)ComponentValueRef RangeTest MethodAnalysis TimePerformed AtPathologist SignatureHEPTEM C CLOTTING [id number] - 215 s 11/03/2024 1:58 AM [facility] RESPIRATORY THERAPYHEPTEM C AMPLITUDE 5 JSG2125 - 51 mm11/03/2024 1:58 AM [facility] RESPIRATORY THERAPYHEPTEM C AMPLITUDE 10 MIN56 44 - 61 mm11/03/2024 1:58 AM [facility] RESPIRATORY THERAPYHEPTEM C AMPLITUDE 20 EGL7799 - 67 mm11/03/2024 1:58 AM [facility] RESPIRATORY THERAPYHEPTEM C MAXIMUM CLOT IVHRSQKM4220 - 69 mm11/03/2024 1:58 AM [facility] RESPIRATORY THERAPY Specimen (Source)Anatomical Location / LateralityCollection Method / Volume Collection TimeReceived KghiPosyg92/19/2025 1:58 AM EDT11/03/2024 1:58 AM EDT Narrative Authorizing ProviderResult TypeResult StatusKy ROBLERO BLOOD ORDERABLESFinal ResultPerforming OrganizationAddressCity/State/ZIP CodePhone Number [facility] RESPIRATORY THERAPY [address] [place] [address], [place] * FIBTEM C (11/03/2024 1:58 AM EDT)ComponentValueRef RangeTest MethodAnalysis TimePerformed AtPathologist SignatureFIBTEM C AMPLITUDE 5 VSK719 - 16 mm 11/03/2024 1:58 AM EDTUT RESPIRATORY THERAPYFIBTEM C AMPLITUDE 10 KKW911 - 17 mm11/03/2024 1:58 AM [facility]TL[facility] RESPIR[facility]ORY THERAPYFIBTEM C AMPLITUDE 20 MIN14 6 - 18 mm11/03/2024 1:58 AM [facility]TL[facility] RESPIRATORY THERAPYFIBTEM C MAXIMUM CLOT QGTGXKRW797 - 19 mm11/03/2024 1:58 AM [facility] RESPIRATORY THERAPYSpecimen (Source)Anatomical Location / LateralityCollection Method / VolumeCollection TimeReceived ZqwkMfwvu42/19/2025 1:58 AM EDT11/03/2024 1:58 AM EDT Narrative Authorizing ProviderResult TypeResult StatusKy ROBLERO BLOOD ORDERABLESFinal ResultPerforming OrganizationAddressCity/State/ZIP CodePhone Number [facility] RESPIRATORY THERAPY [address] [place] [address], [place] * (ABNORMAL) EXTEM C (11/03/2024 1:58 AM EDT)ComponentValueRef RangeTest Method Analysis TimePerformed AtPathologist SignatureEXTEM C CLOTTING [id number] - 73 s 11/03/2024 1:58 AM EDTL[facility] RESPIRATORY THERAPYEXTEM C AMPLITUDE 5 ENT2803 - 52 mm11/03/2024 1:58 AM EDTL[facility] RESPIRATORY THERAPYEXTEM C AMPLITUDE 10 TZG1899 - 62 mm11/03/2024 1:58 AM [facility]TL[facility] RESPIRATORY THERAPYEXTEM C AMPLITUDE 20 MIN 6754 - 69 mm11/03/2024 1:58 AM EDTUT RESPIRATORY THERAPYEXTEM C MAXIMUM CLOT FTXQOEHB8394 - 72 mm11/03/2024 1:58 AM [facility] RESPIRATORY THERAPYEXTEM C LYSIS INDEX 60 CEK1459 - 100 %11/03/2024 1:58 AM [facility] RESPIRATORY THERAPY EXTEM C MAXIMUM LYSIS10(H)0 - 6 %11/03/2024 1:58 AM [facility] RESPIRATORY THERAPYComment:[place]^Preliminary ResultSpecimen (Source)Anatomical Location / LateralityCollection Method / VolumeCollection TimeReceived TimeBlood 11/03/2024 1:58 AM EDT11/03/2024 1:58 AM EDT Narrative Authorizing ProviderResult TypeResult StatusKy ROBLERO BLOOD ORDERABLESFinal ResultPerforming OrganizationAddressCity/State/ZIP CodePhone Number [facility] RESPIRATORY THERAPY [address] [place] [address], * (ABNORMAL) INTEM C (11/03/2024 1:58 AM EDT)ComponentValueRef RangeTest Method Analysis TimePerformed AtPathologist SignatureINTEM C CLOTTING [id number] - 205 s011/03/2024 1:58 AM [facility] RESPIRATORY THERAPYINTEM C AMPLITUDE 5 FUD7322 - 54 mm11/03/2024 1:58 AM [facility] RESPIRATORY THERAPYINTEM C AMPLITUDE 10 MIN 5746 - 63 mm11/03/2024 1:58 AM [facility] RESPIRATORY THERAPYINTEM C AMPLITUDE 20 OVH1052 - 68 mm11/03/2024 1:58 AM [facility] RESPIRATORY THERAPYINTEM C MAXIMUM CLOT SKSBNMJX6087 - 70 mm11/03/2024 1:58 AM [facility] RESPIRATORY THERAPYINTEM C LYSIS INDEX 60 CXT3492 - 100 %11/03/2024 1:58 AM [facility] RESPIRATORY THERAPY INTEM C MAXIMUM LYSIS12(H)0 - 7 %11/03/2024 1:58 AM [facility] RESPIRATORY THERAPYComment:[place]^Preliminary ResultSpecimen (Source)Anatomical Location / LateralityCollection Method / VolumeCollection TimeReceived TimeBlood 11/03/2024 1:58 AM EDT11/03/2024 1:58 AM EDT Narrative Authorizing ProviderResult TypeResult StatusCaleb T Km MDLAB BLOOD ORDERABLESFinal ResultPerforming OrganizationAddressCity/State/ZIP CodePhone Number [facility] RESPIRATORY THERAPY [address] [place] [address], [place] * (ABNORMAL) Protime-INR (11/03/2024 12:07 AM EDT) Only the most recent of2 resultswithin the time period is included. ComponentValueRef RangeTest MethodAnalysis TimePerformed AtPathologist Signature Amzvkun38.9(H)12.3 - 14.8 Hcthzzl0011/03/2024 12:53 AM [facility] ([place])INR1.17(H)0.90 - 1.1009 12:53 AM [facility]) Comment: [...] TimeBloodVenous blood specimen / UnknownExisting Catheter / Clrsthh5611/03/2024 12:07 AM EDT11/03/2024 12:27 AM EDT Narrative Authorizing ProviderResult TypeResult StatusDavance ROBLERO BLOOD ORDERABLES Final ResultPerforming OrganizationAddressCity/State/ZIP CodePhone Number [facility] ([facility]) [address] [place] [address] * Fibrinogen (11/03/2024 12:07 AM EDT)ComponentValueRef RangeTest MethodAnalysis TimePerformed AtPathologist EykafmxtjThyfnyuwsm101944 - 425 mg/dL11/03/2024 12:53 AM [facility]TF[facility] ([facility])Specimen (Source)Anatomical Location / LateralityCollection Method / VolumeCollection TimeReceived TimeBloodVenous blood specimen / UnknownExisting Catheter / Lpbizgs6511/03/2024 12:07 AM EDT 11/03/2024 12:27 AM EDT Narrative Authorizing ProviderResult TypeResult StatusDavance ROBLERO BLOOD ORDERABLES Final ResultPerforming OrganizationAddressCity/State/ZIP CodePhone Number [facility] ([facility]) [address] [place] [id number] * [place] AN ELECTIVE ENDOTRACHEAL AIRWAY (11/02/2024 8:56 PM EDT) Tarik Dave CAA - 11/02/2024 8:56 PM EDT [place] Nair 11/02/2024 9:06 PM Airway Date/Time: 11/02/2024 8:56 PM Reason: elective Airway not difficult General Information and Staff Patient location during procedure: [place] Anesthesiologist: David Reyes MD Resident/CIRCUIT DESIGNER/[place]: [place] Nair Performed: resident/THOMAS/[place] Patient Condition Indications for airway [...] ComponentValueRef RangeTest MethodAnalysis TimePerformed AtPathologist Signature PRODUCT [id number] BLOOD BANKUnit [id number] BLOOD BANKUnit [facility] BLOOD BANKUnit RhPOSL[facility] BLOOD BANKCrossmatch InterpretationCOMNORTHERN NAVA[facility] BLOOD BANKDispense StatusTRL[facility] BLOOD BANKBlood Expiration [id number] BLOOD BANKProduct Blood Iowj0029UQZM BLOOD BANKUnit Glgliz113BZRHTR BLOOD BANK Specimen (Source)Anatomical Location / LateralityCollection Method / Volume Collection TimeReceived QmbtNyrlw80/18/2025 8:05 PM EDT Narrative Authorizing ProviderResult TypeResult StatusJill Nighat MDBLOOD BANK PRODUCT ORDERABLESFinal ResultPerforming OrganizationAddressCity/State/ZIP Code Phone Number [facility] * Type and screen (11/02/2024 8:02 PM EDT)ComponentValueRef RangeTest Method Analysis TimePerformed AtPathologist SignatureABO KesdvghjA36/18/2025 8:42 PM EDTLOS ALAMOS MEDICAL CENTER BLOOD BANKRh MatzYCT4511/02/2024 8:42 PM EDTLOS ALAMOS MEDICAL CENTER BLOOD BANKAb ScrnNEG 11/02/2024 8:42 PM EDTLOS ALAMOS MEDICAL CENTER BLOOD BANKSpecimen (Source)Anatomical Location / LateralityCollection Method / VolumeCollection TimeReceived TimeBloodVenous blood specimen / UnknownExisting Catheter / Asyqyef7311/02/2024 8:02 PM EDT 11/02/2024 8:02 PM EDT Narrative Authorizing ProviderResult TypeResult StatusChrainer ROBLERO BLOOD BANK TEST ORDERABLESFinal ResultPerforming OrganizationAddressCity/State/ZIP Code Phone Number [facility] * Red Top (11/02/2024 8:00 PM EDT)ComponentValueRef RangeTest MethodAnalysis TimePerformed AtPathologist SignatureExtra TubeHold for add-ons.11/02/2024 10:02 PM [facility] ([facility])Comment:Auto resulted.Specimen (Source) Anatomical Location / LateralityCollection Method / VolumeCollection Time Received TimeBloodVenous blood specimen / Gasyemz9611/02/2024 8:00 PM EDT 11/02/2024 8:19 PM EDT Narrative Authorizing ProviderResult TypeResult StatusKy ROBLERO BLOOD ORDERABLESFinal ResultPerforming OrganizationAddressCity/State/ZIP CodePhone Number [facility] ([facility]) [address] [place], [place] [id number] * (ABNORMAL) Activated clotting time (11/02/2024 4:43 PM EDT) Only the most recent of7 resultswithin the time period is included. ComponentValueRef RangeTest MethodAnalysis TimePerformed AtPathologist Signature Activated Clotting Vnec551(H)82 - 152 s011/02/2024 5:54 PM [facility] ([facility])Specimen (Source)Anatomical Location / LateralityCollection Method / VolumeCollection TimeReceived TimeBloodVenous blood specimen / Scvfsbl0311/02/2024 4:43 PM EDT11/02/2024 5:54 PM EDT Narrative Authorizing ProviderResult TypeResult StatusKy ROBLERO POINT OF CARE TEST DOCKED DEVICE UNSOLICITED RESULTSFinal ResultPerforming OrganizationAddress City/State/ZIP CodePhone Number [facility] ([facility]) [address] [place], [place] [id number] * (ABNORMAL) POCT activated clotting time manually resulted (11/02/2024 4:40 PM EDT) Only the most recent of2 resultswithin the time period is included. ComponentValueRef RangeTest MethodAnalysis TimePerformed AtPathologist Signature Activated Clotting Time DLE084(A)82 - 152 secSpecimen (Source)Anatomical Location / LateralityCollection Method / VolumeCollection TimeReceived TimeBlood Venous blood specimen / Qjbnwvs2611/02/2024 4:40 PM EDT Narrative Authorizing ProviderResult TypeResult StatusCaleb Mary Jane Barbour MDPOINT OF CARE TEST ENTER/EDIT ORDERABLESFinal [...] infiltrated over the right femoral artery. ??A 6-[place] sheath was placed in right femoral artery. ?? Coronary angiography was performed with a JL4 and then repeated after IC nitroglycerin 50 mcg x 2. At this time, it was apparent that the LAD had a moderate stenosis and IVUS and iFR were performed. ??Heparin anticoagulation was used for this procedure. ACT was maintained at >250 seconds. A 6 [place] xb3 was engaged to the L[place]. I [...] artery [I25.42] Unstable angina Authorizing ProviderResult TypeResult StatusKy Barbour [facility] CARDIAC CATH PROCEDURESFinal Result * Light Green Top (11/02/2024 6:15 AM EDT)ComponentValueRef RangeTest Method Analysis TimePerformed AtPathologist SignatureExtra TubeHold for add-ons. 11/02/2024 8:01 AM EDTLOS [facility] ([place])Comment:Auto resulted.Specimen (Source)Anatomical Location / LateralityCollection Method / VolumeCollection TimeReceived TimeBloodVenous blood specimen / UnknownExisting Catheter / Tsaqryw4711/02/2024 6:15 AM EDT11/02/2024 6:38 AM EDT Narrative Authorizing ProviderResult TypeResult StatusKy Barbour [facility] BLOOD ORDERABLESFinal ResultPerforming OrganizationAddressCity/State/ZIP CodePhone Number [facility] ([place]) [address] [place] [address] * (ABNORMAL) POCT activated clotting time docked device (11/01/2024 4:33 PM EDT) ComponentValueRef RangeTest MethodAnalysis TimePerformed AtPathologist SignatureActivated Clotting Time NLB043(A)82 - 152 [facility] ([place])Specimen (Source)Anatomical Location / LateralityCollection Method / VolumeCollection TimeReceived PlyiYywqj45/17/2025 4:33 PM EDT Narrative Authorizing ProviderResult TypeResult StatusKy ROBLERO POINT OF CARE TEST DOCKED DEVICE ORDERABLESFinal ResultPerforming OrganizationAddress City/State/ZIP CodePhone Number [facility] ([place]) [address] [place] [address] * CORONARY ANGIOGRAPHY, ULTRASOUND - CORONARY (11/01/2024 [...] on TPN presents a direct admission from [facility] with chief complaint of chest pain. [...] infiltrated over the right femoral artery. ??A 5-[place] Terumo sheath was placed in right femoral [...] was maintained at >250 seconds. A 5 [place] [email or web address] XB 3.0 guide was engaged to the left main. I decided to proceed with IVUS. ??I then advanced a Runthrough wire to the distal left anterior descending. Next, I advanced a ShareDesk IVUS catheter. ??IVUS imaging was performed and [...] Details NSTEMI Authorizing ProviderResult TypeResult StatusKy Barbour [facility] CARDIAC CATH PROCEDURESFinal Result * (ABNORMAL) Anti-Xa (Heparin Level) (11/01/2024 6:04 AM EDT) Only the most recent of4 resultswithin the time period is included. ComponentValueRef RangeTest MethodAnalysis TimePerformed AtPathologist Signature Anti-Xa (Heparin)0.27(L)0.3 - 0.7 IU/mL11/01/2024 6:37 AM [facility] ([facility])Comment:Rivaroxaban and Apixaban will interfere with the anti Xa assay used to monitor UFH and LMWH.Specimen (Source)Anatomical Location / Laterality Collection Method / VolumeCollection TimeReceived TimeBloodBlood sample taken from central line / UnknownExisting Catheter / Kraniye0011/01/2024 6:04 AM EDT 11/01/2024 6:15 AM EDT Narrative Authorizing ProviderResult TypeResult StatusKy Barbour MDLAB BLOOD ORDERABLESFinal ResultPerforming OrganizationAddressCity/State/ZIP CodePhone Number [facility] ([place]) [address] [place] [address] * (ABNORMAL) Toxicology Screen, Urine (11/01/2024 2:12 AM EDT)ComponentValueRef RangeTest MethodAnalysis TimePerformed AtPathologist SignatureBarbiturates FxfxdolyVljnirdk94/17/2025 2:57 AM [facility] ([facility]) BenzodiazepinesPositive(A)Pnrvsqql71/17/2025 2:57 AM [facility] ([facility])QkuravimdnqnWvrmhabaAaoifntd42/17/2025 2:57 AM [facility] ([facility])EskdvefqjMwlwvjmxWwvrkqcu30/17/2025 2:57 AM [facility] ([facility])XodjuxdywnFrmpxxxkWkencsej58/17/2025 2:57 AM [facility] ([facility])WbqooapndpsmhQgybyeasNkwoctap21/17/2025 2:57 AM [facility] ([facility])OpiatesPositive(A)Kradkfae11/17/2025 2:57 AM [facility] ([facility])VrixvnqJkwmngudWjmifxza18/17/2025 2:57 AM [facility] ([facility])Amphetamines/IqvayfuqdnpyasiDgerrecmLbvhifro19/17/2025 2:57 AM [facility] ([facility])VsttkfjwhcsXyrjghqfFqwirqle29/17/2025 2:57 AM [facility] ([facility])Specimen (Source)Anatomical Location / Laterality Collection Method / VolumeCollection TimeReceived TimeUrineUrine specimen obtained by clean catch procedure / UnknownNon-blood Collection / Unknown 11/01/2024 2:12 AM EDT11/01/2024 2:18 AM EDT Narrative [facility] ([place]) - 11/01/2024 2:57 AM EDT Unconfirmed screening results should only be used for medical purposes. Authorizing ProviderResult TypeResult StatusKy ROBLERO URINE ORDERABLESFinal ResultPerforming OrganizationAddressCity/State/ZIP CodePhone Number [facility] ([place]) [address] [place] [address] * CORONARY ANGIOGRAPHY, LEFT HEART CATH (10/31/2024 [...] informed consent. ??she was brought to the laboratory helper in a fasting state. The left wrist area was prepped and draped in usual fashion. Micropuncture technique was used for access in the radial artery. ??A 5-S[place] x 11 cm sheath was placed. ??Verapamil was given through the sheath, and heparin was administered intravenously. ?? A 5 [place] JR4 diagnostic catheter was advanced and this [...] catheter was then downsized to a 4 [place] JR4 diagnostic catheter however this also was not able to engage the right coronary artery. ??Catheter was exchanged to a ??JR4 diagnostic catheter which could not engage the left coronary artery. ??Catheter was exchanged to a 4 [place] JL 3.5 diagnostic catheter which eventually was able to engage the left coronary artery. ??Angiography was performed in multiple views. Catheter was exchanged over the wire to a 4 [place] 3DRC catheter. ?? Multiple attempts were made [...] Details NSTEMI (non-ST elevated myocardial infarction) ([facility]) [I21.4] Authorizing ProviderResult TypeResult StatusCaleb T KmPioneer [facility] CARDIAC CATH PROCEDURESFinal Result * LIMITED ECHO (TTE) W/ COLOR FLOW AND IMAGING AGENT (10/31/2024 11:40 AM EDT) Anatomical RegionLateralityModalityOtherSpecimen (Source)Anatomical Location / LateralityCollection Method / VolumeCollection TimeReceived Time10/31/2024 11:16 AM EDT Narrative 10/31/2024 12:44 PM EDT 1 1 [facility] [address] [place] [address] [phone] (fax) Echocardiogram-[facility] Name: JUAN GARCIA Study Date: 10/31/2024 11:16 AM B/P: 106 mmHg/67 mmHg HR: 70 bpm Date of : 1990 Location: [facility] Height: 66 in. Age: 34 [...] minimal pericardial effusion. Procedure Staff Reading Group: [facility] Block Breaker Operator: DAVID Kearney, RDCS ??Ordering Physician: [place] BARBOUR ?? Wall Motion Scores -1 - hyperkinesia, 0 - not evaluated, 1 - normal, 2 - hypokinesia, 3 - akinesia, 4 - dyskinesia Procedure Note Mitul Zheng MD - 10/31/2024 1 1 [facility] [address] [place] [address] [phone] (fax) Echocardiogram-[facility] Name: JUAN GARCIA Study Date: 10/31/2024 11:16 AM B/P: 106 mmHg/67 mmHg HR: 70 bpm Date of : 1990 Location: [facility] Height: 66 in. Age: 34 [...] minimal pericardial effusion. Procedure Staff Reading Group: [facility] Block Breaker Operator: DAVID Kearney, RDCS Ordering Physician: [place] BARBOUR Wall Motion Scores -1 - hyperkinesia, 0 - not evaluated, 1 - normal, 2 - hypokinesia, 3 - akinesia, 4 - dyskinesia Authorizing ProviderResult TypeResult StatusKy Barbour [facility] ECHO PROCEDURES Final Result * Hemoglobin A1c (10/31/2024 6:27 AM EDT)ComponentValueRef RangeTest Method Analysis TimePerformed AtPathologist SignatureHemoglobin A1C4.54.0 - 6.0 % 10/31/2024 1:13 PM [facility] ([place])Estimated Average Clqygbl84 mg/dL09/ 1:13 PM [facility] ([facility])Specimen (Source) Anatomical Location / LateralityCollection Method / VolumeCollection Time Received TimeBloodBlood sample taken from central line / UnknownExisting Catheter / Qskshlo8210/31/2024 6:27 AM EDT10/31/2024 7:01 AM EDT Narrative Authorizing ProviderResult TypeResult StatusKy ROBLERO BLOOD ORDERABLESFinal ResultPerforming OrganizationAddressCity/State/ZIP CodePhone Number [facility] ([facility]) [address] [place] [address] * (ABNORMAL) Lipid panel (10/31/2024 6:27 AM EDT)ComponentValueRef RangeTest MethodAnalysis TimePerformed AtPathologist PidpaehnrJipotcbhsdoyc41<150 mg/dL 10/31/2024 9:31 AM [facility] ([facility])Comment: TRIGLYCERIDE REFERENCE RANGE: 20 YEARS AND OLDER ?CARDIOVASCULAR RISK LESS THAN 150 mg/dL ? LOW RISK 150 TO 199 mg/dL ?BORDERLINE RISK 200 mg/dL AND GREATER ? HIGH RISK Wzzldkfmxhf610(L)120 - 200 mg/dL10/31/2024 9:31 AM [facility] ([facility]) LDL Ypokvauahy134 - 160 mg/dL10/31/2024 9:31 AM [facility] ([facility])HDL 4323 - 92 mg/dL10/31/2024 9:31 AM [facility] ([facility])Non HDL Qbcnxfqhvpw9642/16/2025 9:31 AM [facility] ([facility])Total VLDL-C170 - 40 mg/dL10/31/2024 9:31 AM [facility] ([facility])Cholesterol/HDL Ratio2.7 mg/dL10/31/2024 9:31 AM [facility] ([facility])Specimen (Source)Anatomical Location / LateralityCollection Method / VolumeCollection TimeReceived Time BloodBlood sample taken from central line / UnknownExisting Catheter / Unknown 10/31/2024 6:27 AM EDT10/31/2024 7:11 AM EDT Narrative Authorizing ProviderResult TypeResult StatusKy Barbour NCLAB BLOOD ORDERABLESFinal ResultPerforming OrganizationAddressCity/State/ZIP CodePhone Number [facility] ([facility]) [address] [facility] [place] [address] * TSH3 Reflex to FT4 (10/30/2024 7:11 PM EDT)ComponentValueRef RangeTest Method Analysis TimePerformed AtPathologist SignatureTSH3.460.34 - 5.60 mIU/L 10/30/2024 8:01 PM [facility] ([facility])Specimen (Source)Anatomical Location / LateralityCollection Method / VolumeCollection TimeReceived Time BloodVenous blood specimen / UnknownExisting Catheter / Bmdwwzl4110/30/2024 7:11 PM EDT10/30/2024 7:18 PM EDT Narrative Authorizing ProviderResult TypeResult Statuscharlotte MahmoodWestlake Outpatient Medical CenterLAB BLOOD ORDERABLES Final ResultPerforming OrganizationAddressCity/State/ZIP CodePhone Number [facility] ([facility]) [address] [place] [address] * (ABNORMAL) aPTT - baseline (10/30/2024 7:11 PM EDT)ComponentValueRef RangeTest MethodAnalysis TimePerformed AtPathologist YgcwhproxkLDF33.0(H)25.0 - 35.0 Jstjhyh0810/30/2024 7:48 PM [facility] ([facility])Comment:Clinical significance of the APTT is questionable in the presence of heparin.Specimen (Source)Anatomical Location / LateralityCollection Method / VolumeCollection TimeReceived TimeBloodVenous blood specimen / UnknownExisting Catheter / Rpzhwrc2110/30/2024 7:11 PM EDT10/30/2024 7:18 PM EDT Narrative Authorizing ProviderResult TypeResult Statuscharlotte [facility] CenterLAB BLOOD ORDERABLES Final ResultPerforming OrganizationAddressCity/State/ZIP CodePhone Number [facility]) [address] [place] [address] * B-type natriuretic peptide (10/30/2024 7:11 PM EDT)ComponentValueRef RangeTest MethodAnalysis TimePerformed AtPathologist QyriefdcsAMP607 - 100 pg/mL 10/30/2024 7:49 PM [facility]TF[facility] ([place])Specimen (Source)Anatomical Location / LateralityCollection Method / VolumeCollection TimeReceived Time BloodVenous blood specimen / UnknownExisting Catheter / Gwfomgf6110/30/2024 7:11 PM EDT10/30/2024 7:18 PM EDT Narrative Authorizing ProviderResult TypeResult StatusMecharlotte Mahmood CNPLAB BLOOD ORDERABLES Final ResultPerforming OrganizationAddressCity/State/ZIP CodePhone Number [facility] ([place]) [address] [place] [address] from Last 3 Months Insurance Advance Directives * Full Code (Latest Code Status on File) Date ActivatedDate VmrbhhpraotZfkcvhua51/2/2025 12:23 PM12/21/2024 4:03 PM * Full Code Date ActivatedDate VtswblhgigcHcjysslp61/1/2025 8:05 11/17/2024 4:42 PM * Full Code Date ActivatedDate InactivatedComments11/09/2024 12:31 PM11/13/2024 4:34 PM * Full Code Date ActivatedDate InactivatedComments10/30/2024 7:14 PM11/07/2024 7:10 PM * Full Code Date ActivatedDate InactivatedComments08/16/2024 9:21 PM08/20/2024 5:55 PM Care Teams Team MemberRelationshipSpecialtyStart DateEnd Britt Alas MD [address] [facility] [place] [address] PCP - GeneralFamily Medicine08/17/24 Vicky Cardenas RN Case ManagerCase Qgcbbcfbec58/13/25
--- OUTSIDE RECORDS SUMMARY | 2025-01-22 23:26 | XMS_ITS | Clinical Summary ---
Author Organization [facility] Address [address], [address] [place] [address] Care Team Providers Care Ham Stripper Name Role Phone Thomas Alas MD Primary Care Provider [phone] Allergies Active AllergyReactionsCriticalityNoted DateCommentsAdhesive TapeOther (See Comments)Rlntln8802/07/2020 Sensitive to certain adhesive tapes. Redness and itchy. CodeineNausea And VqclhidsAms51/09/2025NsaidsOther (See Comments)01/29/2022 Gastric bypass S/p RYGB S/p RYGB Oxycodone-XaoaiwzztdxyhEgvcknooyekRcwb55/30/2023Wound Dressing AdhesiveOther (See Comments)Sksmrl3202/07/2020 Sensitive to certain adhesive tapes. Redness and [...] MG tablet Take 1 tablet by mouth hshsayh15/5Active ranolazine (RANEXA) 500 MG extended release tablet [...] DateDiagnosed DateIntractable nausea and /14/2023 Encounters DateTypeDepartmentCare YgqdXwtmbbqwugj70/27/2025Results Follow-Up [facility] Emergency Department [address] [place] [address] Kera Smith RN 12/04/2024 2:32 PM EDT - 12/04[facility] [address] [place] [address] Hematuria, unspecified type (Primary Dx) Discharge Disposition: Home or Self Care12/04/20242645Pbbyvg90/18/2025 10:18 AM EDT - 12/02/2024 12:37 [facility] [address] [place] [address] Gross hematuria (Primary Dx); Painful bladder spasm; Right flank pain Discharge Disposition: Home or Self Care12/02/20246183Vjpasb26/09/2025 5:32 PM EDT - 11/23/2024 8[facility]26 [facility] [address] [place] [address] Shelley Sanz DO Acute urinary retention (Primary Dx); Acute UTI Discharge Disposition: Home or Self Care11/23/20247523Pxavfv91/01/2025 1:15 PM EDT - 11/15/2024 6:[facility] [address] [place], [place] [id number] Jory Hurd DO Chest pain, unspecified type (Primary Dx) Discharge Disposition: Another Acute Care Yokvxrwh38/01/7421Oqqbfl08/24/2025 12:31 PM EDT - 11/09/2024 8:42 AM JUNTEhelene Debbie Morganza Emergency Department [address] [id number] Oc Graham MD Chest pain, unspecified type (Primary Dx) Discharge Disposition: Another Acute Care Ivuzpbdz96/24/2025Travelfrom Last 3 Months Social History Tobacco UseTypesPacks/DayYears [...] Safety Domain Source: IP Abuse ScreeningAnswerDate RecordedPhysical rjtwaOvszuk22/18/2025 Verbal xsdanAqzszy16/18/2025Emotional ennqhWkuras38/18/2025Financial abuseDenies 12/02/2024Sexual sdurvTtxdyi07/18/2025CommentsNoSex and Gender InformationValueDate RecordedSex Assigned at BirthNot on fileLegal SexFemale 04/12/2013 2:41 PM ESTGender IdentityNot on fileSexual OrientationNot on file Last Filed Vital Signs Vital SignReadingTime TakenCommentsBlood Cdwfnovx668/4612/04/2024 6:01 PM EDT Mxtnr476312/04/2024 2:30 PM PATNcyjarftupx51.7 ??C (98.1 ??F)12/04/2024 2:30 PM EDTRespiratory Pwnn2408 2:30 PM EDTOxygen Uuobqauowz05%12/04/2024 6:01 PM EDTInhaled Oxygen Concentration--Rkrief96.6 kg (180 lb)12/02/2024 10:14 AM VBWVhjjxe102.6 cm (5' 6 )12/02/2024 10:14 AM EDTBody Mass Index29.0512/02/2024 10:14 AM EDT Plan of Treatment Health MaintenanceDue DateLast UeiuYoyjkrphDhpvxx88/17/2000Depression Screen 2001Varicella vaccine (1 of 2 - 13+ 2-dose series)2002HIV screen 2004Hepatitis C uqyqpd2804/03/2007Hepatitis B vaccine (1 of 3 - 19+ [...] DiagnosisCommentsCT UROGRAMSTAT 12/04/2024 4:29 PM EDT MICROSCOPIC JTZGFQHAKVLuimdvr78/20/2025 2:55 PM EDT QESLMVRJTDJFNX56/20/2025 2:55 PM EDT CULTURE, XHTJOYSOE54/20/2025 2:55 PM EDT PROTIME-RSDSKRJ0912/04/2024 2:53 PM EDT BASIC METABOLIC YFHWEOOYZ44/20/2025 2:53 PM EDT CBC WITH AUTO WSKSCXGXXTCINBUW41/20/2025 2:53 PM EDT MICROSCOPIC UJHMXEMDYFBzujqfp68/18/2025 11:54 AM EDT URINALYSIS WITH REFLEX TO KEVKDETRZOL00/18/2025 11:[address] ABDOMEN PELVIS WO HZFHYTOTVLWK20/18/2025 11:30 AM EDT JNNGTAULKYHAZ68/18/2025 11:12 AM EDT LACTIC ZGLFABME86/18/2025 11:12 AM EDT CBC WITH AUTO UIAWUGGMTYLMRJVA29/18/2025 11:12 AM EDT COMPREHENSIVE METABOLIC NTHZTJNER94/18/2025 11:12 AM EDT EKG 12-ALRRPlamjlc88/09/2025 6:44 PM EDT HWILBRIYKPPO04/09/2025 6:16 PM EDT BASIC METABOLIC QIPAVVQOZ44/09/2025 6:16 PM EDT CBC WITH AUTO PNZMGQLLELKFAZGN43/09/2025 6:16 PM EDT MICROSCOPIC DMFSRZCRJAIwnowuj07/09/2025 5:40 PM EDT URINALYSIS WITH REFLEX TO BKBTQJPLGZH86/09/2025 5:40 PM EDT QNDIPYHFHBPT14/01/2025 2:35 PM EDT ICLLYSIM15/01/2025 1:25 PM EDT PROTIME-BJHUJPF1811/15/2024 1:25 PM EDT BRAIN NATRIURETIC JCOTWCDNIGL80/01/2025 1:25 PM EDT KOYBBZORZWFM19/01/2025 1:25 PM EDT CBC WITH AUTO LHDCKQGMLTIKQNES57/01/2025 1:25 PM EDT BASIC METABOLIC KVPJGZEXU26/01/2025 1:25 PM EDT XR CHEST XGPQCNPLCIWR64/01/2025 1:24 PM EDT EKG 12-HOXKRFNA31/01/2025 1:19 PM EDT POCT RYBWGRTHhuiqcs62/24/2025 11:06 PM EDT POCT UMCKKGVVCIG45/24/2025 11:06 PM EDT POCT LMPOSBLXEOD79/24/2025 8:09 PM EDT POCT PTWXLNYVvoydqb03/24/2025 7:55 PM EDT FCZBVJUVSGZG20/24/2025 6:38 PM EDT POCT BQYAHILGuwdfbi53/24/2025 4:04 PM EDT EKG 12-VEPVJFYH95/24/2025 4:01 PM EDT POCT ONGGQVZAhgdccp72/24/2025 2:03 PM EDT CTA CHEST ABDOMEN PELVIS W WO BCTIWNLYQPIB17/ 1:43 PM EDT PROTIME-JLGEQJQ3111/08/2024 1:39 PM EDT YZMDKESM12/24/2025 1:39 PM EDT POCT PHSTPWWSKWJEIW26/24/2025 1:16 PM EDT POCT PUOUPPHvvcpur99/24/2025 1:14 PM EDT DJDGBDXSMTNT24/24/2025 12:50 PM EDT COMPREHENSIVE METABOLIC PANEL W/ REFLEX TO MG FOR LOW KSTAT11/08/2024 12:50 PM EDT CBC WITH AUTO RPZRMQPQOLXHIFUI30/24/2025 12:50 PM EDT POCT PCCSQGYTskbkpw10/24/2025 12:38 PM EDT EKG 12-UEKZFkpupvk67/24/2025 12:37 PM EDT from Last 3 Months [...] change noted. Authorizing ProviderResult TypeResult StatusNeeta Marion HOUSEKEEPER AND LAUNDRY ASSISTANT - CNPIMG CT ORDERABLESFinal Result * (ABNORMAL) Microscopic Urinalysis (12/04/2024 2:55 PM EDT) Only the most recent of3 resultswithin the time period is included. ComponentValueRef RangeTest MethodAnalysis TimePerformed AtPathologist Signature WBC, UA2 TO 50 - 5 /HPF12/04/2024 2:55 PM [facility] RBC, UAGREATER THAN 1000 - 2 /HPF12/04/2024 2:55 PM [facility] LABEpithelial Cells, UA0 TO 20 - 25 /HPF12/04/2024 2:55 PM [facility] LABBacteria, UA2+(A)None12/04/2024 2:55 PM [facility] LABSpecimen (Source)Anatomical Location / Laterality Collection Method / VolumeCollection TimeReceived Time12/04/2024 2:55 PM EDT 12/04/2024 3:03 PM EDT Narrative Authorizing ProviderResult TypeResult StatusCrystalciemily Marion HOUSEKEEPER AND LAUNDRY ASSISTANT - CNPURINE ORDERABLESFinal ResultPerforming OrganizationAddressCity/State/ZIP CodePhone Number [facility] [address] [id number], [facility] [phone] * (ABNORMAL) Urinalysis (12/04/2024 2:55 PM EDT)ComponentValueRef RangeTest MethodAnalysis TimePerformed AtPathologist SignatureColor, UARed(A)Yellow 12/04/2024 2:55 PM [facility] LABTurbidity UAClearClear 12/04/2024 2:55 PM [facility] LABGlucose, UrNEGATIVE NEGATIVE mg/dL12/04/2024 2:55 PM [facility] LABBilirubin, DsfpoXXGYTXMOVNLJLTDD21/20/2025 2:55 PM [facility] Ketones, Urine1+(A)NEGATIVE mg/dL12/04/2024 2:55 PM [facility] LABSpecific [place], UA1.0201.010 - 1.9932412/04/2024 2:55 PM [facility] LABUrine Hgb3+(A)NMCIUVGM42/20/2025 2:55 PM [facility] LABpH, Urine7.05.0 - 9. 2:55 PM [facility] LABProtein, UA2+(A)NEGATIVE mg/dL12/04/2024 2:55 PM EDT [facility] LABUrobilinogen, UrineELEVATED0.0 - 1.0 EU/dL 12/04/2024 2:55 PM [facility] LABNitrite, UrinePOSITIVE (A)AQGCLEVQ92/20/2025 2:55 PM [facility] LABLeukocyte Esterase, UrineSMALL(A)DPFMNWPB21/20/2025 2:55 PM [facility] LABSpecimen (Source)Anatomical Location / LateralityCollection Method / VolumeCollection TimeReceived TimeUrineURINE SPECIMEN / Jmteutk1612/04/2024 2:55 PM EDT1 3:03 PM EDT Narrative Authorizing ProviderResult TypeResult StatusMarpapa Marion HOUSEKEEPER AND LAUNDRY ASSISTANT - CNPURINE ORDERABLESFinal ResultPerforming OrganizationAddressCity/State/ZIP CodePhone Number [facility] [address] [place], [place] [address] [phone] * (ABNORMAL) Culture, Urine (12/04/2024 2:55 PM EDT)ComponentValueRef RangeTest MethodAnalysis TimePerformed AtPathologist SignatureSpecimen Description.CLEAN CATCH URINE12/04/2024 2:55 PM [facility] LABSpecial RequestsSite: Urine12/04/2024 2:55 PM [facility] CulturePSEUDOMONAS FLUORESCENS >100,000 CFU/ML(A)12/04/2024 2:55 PM EDTMERCY LABORATORIESCultureSTENOTROPHOMONAS (XANTHOMONAS) MALTOPHILIA >100,000 CFU/ML (A)12/04/2024 2:55 PM EDTMERCY LABORATORIESSpecimen (Source)Anatomical Location / LateralityCollection Method / VolumeCollection TimeReceived Time UrineURINE SPECIMEN / Sghfooh4212/04/2024 2:55 PM EDT1 6:26 PM EDT Narrative OrganismAntibioticMethodSusceptibilityPseudomonas fluorescenslevofloxacin BACTERIAL SUSCEPTIBILITY PANEL SANDHYA 0.5: Sensitive Pseudomonas fluorescenspiperacillin-tazobactamBACTERIAL SUSCEPTIBILITY PANEL SANDHYA 8: Sensitive Stenotrophomonas maltophilialevofloxacinBACTERIAL SUSCEPTIBILITY PANEL SANDHYA 0.25: Sensitive Stenotrophomonas maltophiliatrimethoprim-sulfamethoxazoleBACTERIAL SUSCEPTIBILITY PANEL SANDHYA <=20: Sensitive Authorizing ProviderResult TypeResult StatusNeeta Marion HOUSEKEEPER AND LAUNDRY ASSISTANT - [employer] MICROBIOLOGY - GENERAL ORDERABLESFinal ResultPerforming OrganizationAddress City/State/ZIP CodePhone Number [facility] [address] [place] [address], [facility] [phone] [facility] [employer] [address] [place] [address] * (ABNORMAL) CBC with Auto Differential (12/04/2024 2:53 PM EDT) Only the most recent of5 resultswithin the time period is included. ComponentValueRef RangeTest MethodAnalysis TimePerformed AtPathologist Signature WBC4.13.5 - 11.3 k/uL12/04/2024 2:53 PM [facility] LABRBC 3.21(L)3.95 - 5.11 m/uL12/04/2024 2:53 PM [facility] Hemoglobin9.4(L)11.9 - 15.1 g/dL12/04/2024 2:53 PM [facility] KQSDciejunxal64.2(L)36.3 - 47.1 %12/04/2024 2:53 PM [facility] CKPFLI02.982.6 - 102.9 fL12/04/2024 2:53 PM [facility] EBSXRD40.325.2 - 33.5 pg12/04/2024 2:53 PM [facility] WENGMCO75.328.4 - 34.8 g/dL12/04/2024 2:53 PM [facility] WGIZWU47.711.8 - 14.4 %12/04/2024 2:53 PM [facility] DTLGzsvfhozr369957 - 453 k/uL12/04/2024 2:53 PM [facility] JIRUOT80.68.1 - 13.5 fL12/04/2024 2:53 PM [facility] LABNRBC Automated0.00.0 per 100 WBC12/04/2024 2:53 PM [facility] LABNeutrophils %5136 - 65 %12/04/2024 2:53 PM [facility] LABLymphocytes %3724 - 43 %12/04/2024 2:53 PM [facility] LABMonocytes %93 - 12 %12/04/2024 2:53 PM [facility] LABEosinophils %21 - 4 %12/04/2024 2:53 PM [facility] LABBasophils %10 - 2 %12/04/2024 2:53 PM [facility] LABImmature Granulocytes %00 %12/04/2024 2:53 PM [facility] LABNeutrophils Absolute2.091.50 - 8.10 k/uL12/04/2024 2:53 PM [facility] LABLymphocytes Absolute1.491.10 - 3.70 k/uL12/04/2024 2:53 PM [facility] LABMonocytes Absolute0.360.10 - 1.20 k/uL12/04/2024 2:53 PM [facility] LABEosinophils Absolute 0.080.00 - 0.44 k/uL12/04/2024 2:53 PM [facility] Basophils Absolute0.040.00 - 0.20 k/uL12/04/2024 2:53 PM [facility] LABImmature Granulocytes Absolute<0.030.00 - 0.30 k/uL12/04/2024 2:53 PM [facility] LABSpecimen (Source)Anatomical Location / LateralityCollection Method / VolumeCollection TimeReceived TimeBloodBLOOD SPECIMEN / Hfcqsqv4712/04/2024 2:53 PM EDT1 3:02 PM EDT Narrative Authorizing ProviderResult TypeResult StatusMarciemiyl Marion HOUSEKEEPER AND LAUNDRY ASSISTANT - [facility] HEMATOLOGY ORDERABLESFinal ResultPerforming OrganizationAddressCity/State/ZIP CodePhone Number [facility] [address] [phone] * Protime-INR (12/04/2024 2:53 PM EDT) Only the most recent of3 resultswithin the time period is included. ComponentValueRef RangeTest MethodAnalysis TimePerformed AtPathologist Signature Glrdjsc13.112.0 - 15.0 sec12/04/2024 2:53 PM [facility] INR1.110 2:53 PM [facility] LABComment: ? Therapeutic Range: Moderate Anticoagulant Intensity: INR = 2.0-3.0 High Anticoagulant Intensity: INR = 2.5-3.5 Specimen (Source)Anatomical Location / LateralityCollection Method / Volume Collection TimeReceived TimeBloodBLOOD SPECIMEN / Ugrgjcu1012/04/2024 2:53 PM EDT 12/04/2024 3:02 PM EDT Narrative Authorizing ProviderResult TypeResult StatusMarpapa Marion HOUSEKEEPER AND LAUNDRY ASSISTANT - [employer] HEMATOLOGY ORDERABLESFinal ResultPerforming OrganizationAddressCity/State/ZIP CodePhone Number [facility] [address] [id number] [phone] * (ABNORMAL) BMP (12/04/2024 2:53 PM EDT) Only the most recent of3 resultswithin the time period is included. ComponentValueRef RangeTest MethodAnalysis TimePerformed AtPathologist Signature Lzxqdd384668 - 145 mmol/L1 2:53 PM [facility] Potassium3.93.7 - 5.3 mmol/L1 2:53 PM [facility] LNXSqfssjjz811(H)98 - 107 mmol/L1 2:53 PM [facility] MUWVT49888 - 31 mmol/L1 2:53 PM [facility] LABAnion Gap8(L)9 - 16 mmol/L1 2:53 PM [facility] EQFDtehcda7001 - 99 mg/dL12/04/2024 2:53 PM [facility] ORJQZQ00 - 20 mg/dL12/04/2024 2:53 PM [facility] LABCreatinine0.60.50 - 0.90 mg/dL12/04/2024 2:53 PM [facility] LABEst, Glom Filt Rate>90>60 mL/min/1.26n95012/04/2024 2:53 PM [facility] LABComment: ? These results are [...] therapy that affects renal tubular secretion. BUN/Creatinine Dreev023 - 2:53 PM [facility] LABCalcium8.2(L)8.6 - 10.4 mg/dL12/04/2024 2:53 PM [facility] LABSpecimen (Source)Anatomical Location / LateralityCollection Method / VolumeCollection TimeReceived TimeBloodBLOOD SPECIMEN / Qrrvenf7712/04/2024 2:53 PM EDT1 3:02 PM EDT Narrative Authorizing ProviderResult TypeResult StatusMarciemily Marion HOUSEKEEPER AND LAUNDRY ASSISTANT - CNPCHEMISTRY ORDERABLESFinal ResultPerforming OrganizationAddressCity/State/ZIP CodePhone Number [facility] [address] [phone] * (ABNORMAL) Urinalysis with Reflex to Culture (12/02/2024 11:54 AM EDT) Only the most recent of2 resultswithin the time period is included. ComponentValueRef RangeTest MethodAnalysis TimePerformed AtPathologist Signature Color, UARed(A)Gsayas2512/02/2024 11:54 AM [facility] Turbidity EXPpdrnUdmqh22/18/2025 11:54 AM [facility] Glucose, UrNEGATIVENEGATIVE mg/dL12/02/2024 11:54 AM [facility] LABBilirubin, SdwnmSEHWHGUCXVOMDTTJ79/18/2025 11:54 AM [facility] LABKetones, UrineNEGATIVENEGATIVE mg/dL12/02/2024 11:54 AM EDT [facility] LABSpecific [place], UA1.0101.010 - 1.1417412/02/2024 11:54 AM [facility] LABUrine Hgb3+(A)WLSLNVXD87/18/2025 11:54 AM [facility] LABpH, Urine7.05.0 - 9.010 11:54 AM [facility] LABProtein, UATRACE(A)NEGATIVE mg/dL 12/02/2024 11:54 AM [facility] LABUrobilinogen, UrineNormal 0.0 - 1.0 EU/dL12/02/2024 11:54 AM [facility] LABNitrite, TealcHWGBYOPVZYWCXESX90/18/2025 11:54 AM [facility] Leukocyte Esterase, PdfmfCESKHSQYOSXYIISD51/18/2025 11:54 AM [facility] LABSpecimen (Source)Anatomical Location / LateralityCollection Method / VolumeCollection TimeReceived TimeURINE SPECIMEN / Nvelfqs4212/02/2024 11:54 AM EDT1 11:57 AM EDT Narrative Authorizing ProviderResult TypeResult StatusDavid Chris [place] ORDERABLES Final ResultPerforming OrganizationAddressCity/State/ZIP CodePhone Number [facility] [address] [phone] * CT ABDOMEN PELVIS WO CONTRAST Additional [...] or pelvis. Authorizing ProviderResult TypeResult StatusDavid Chris [facility] CT ORDERABLES Final Result * Magnesium (12/02/2024 11:12 AM EDT)ComponentValueRef RangeTest MethodAnalysis TimePerformed AtPathologist SignatureMagnesium1.81.6 - 2.6 mg/dL12/02/2024 11:12 AM [facility] LABSpecimen (Source)Anatomical Location / LateralityCollection Method / VolumeCollection TimeReceived Time BloodBLOOD SPECIMEN / Oougslu3912/02/2024 11:12 AM EDT1 11:14 AM EDT Narrative Authorizing ProviderResult TypeResult StatusDavid Chris [facility]EM[facility] ORDERABLESFinal ResultPerforming OrganizationAddressCity/State/ZIP CodePhone Number [facility] [address] [place] [address] * Lactic Acid (12/02/2024 11:12 AM EDT)ComponentValueRef RangeTest Method Analysis TimePerformed AtPathologist SignatureLactic Acid0.80.5 - 2.2 mmol/L 12/02/2024 11:12 AM [facility] LABSpecimen (Source) Anatomical Location / LateralityCollection Method / VolumeCollection Time Received TimeBloodBLOOD SPECIMEN / Tfnulwc5912/02/2024 11:12 AM EDT1 11:14 AM EDT Narrative Authorizing ProviderResult TypeResult StatusDavijose Perez [place]-CCHEMISTRY ORDERABLESFinal ResultPerforming OrganizationAddressCity/State/ZIP CodePhone Number [facility] [address] [place] [address] * (ABNORMAL) CMP (12/02/2024 11:12 AM EDT)ComponentValueRef RangeTest Method Analysis TimePerformed AtPathologist DsnymnuxzIzbxtc592477 - 145 mmol/L 12/02/2024 11:12 AM [facility] LABPotassium3.93.7 - 5.3 mmol/L1 11:12 AM [facility] CTOWowstyuz93402 - 107 mmol/L1 11:12 AM [facility] SCKMV17311 - 31 mmol/L1 11:12 AM [facility] LABAnion Gap99 - 16 mmol/L1 11:12 AM [facility] MBIYmcwzjl5835 - 99 mg/dL12/02/2024 11:12 AM [facility] RVHAQK94 - 20 mg/dL 12/02/2024 11:12 AM [facility] LABCreatinine0.70.50 - 0.90 mg/dL12/02/2024 11:12 AM [facility] LABEst, Glom Filt Rate>90>60 mL/min/1.34n15412/02/2024 11:12 AM [facility] LABComment: ? These results are [...] therapy that affects renal tubular secretion. BUN/Creatinine Wgorj680 - 11:12 AM [facility] LABCalcium8.4(L)8.6 - 10.4 mg/dL12/02/2024 11:12 AM [facility] LABTotal Protein6.0(L)6.6 - 8.7 g/dL12/02/2024 11:12 AM [facility] LABAlbumin3.73.5 - 5.2 g/dL12/02/2024 11:12 AM [facility] LABAlbumin/Globulin Ratio1.61.0 - 2.510 11:12 AM [facility] LABTotal Bilirubin0.30.00 - 1.20 mg/dL12/02/2024 11:12 AM [facility] LABAlkaline Vypkvpdstbl0189 - 104 U/L 12/02/2024 11:12 AM [facility] ROEBEM24(H)10 - 35 U/L 12/02/2024 11:12 AM [facility] SYLNID95(H)10 - 35 U/L 12/02/2024 11:12 AM [facility] LABSpecimen (Source) Anatomical Location / LateralityCollection Method / VolumeCollection Time Received TimeBloodBLOOD SPECIMEN / Knvzarv1512/02/2024 11:12 AM EDT1 11:14 AM EDT Narrative Authorizing ProviderResult TypeResult StatusDavid Chris [facility]TR[facility] HOSPITALEMISTRY ORDERABLESFinal ResultPerforming OrganizationAddressCity/State/ZIP CodePhone Number [facility] [address] [phone] * EKG 12 Lead (11/23/2024 6:44 PM EDT) Only the most recent of4 resultswithin the time period is included. ComponentValueRef RangeTest MethodAnalysis TimePerformed AtPathologist Signature Ventricular Ltve28YAYYRDZ MTH RADIOLOGYAtrial Acjf02BHZQGOK [facility] RADIOLOGYP-R Zjgvschg771kbAKFF [facility] RADIOLOGYQRS Ijmuaksh53zdRPOA [facility] RADIOLOGYQ-T Wihwnbzv599 msMHPN [facility] RADIOLOGYQTc Calculation (Bazett)486msMHPN [facility] RADIOLOGYP Axis74 degreesMHPN [facility] RADIOLOGYR Yetq54qqkkkecYXDV [facility] RADIOLOGYT Oenb67vpnqfuhJFPK [facility] RADIOLOGYSpecimen (Source)Anatomical Location / LateralityCollection Method / VolumeCollection TimeReceived Time11/23/2024 6:44 PM EDT Narrative [facility] RAD[facility]Y - 11/23/2024 11:05 PM [...] significant change was found Confirmed by Brad oGod ([id number]) on 11/23/2024 11:05:14 PM Authorizing ProviderResult TypeResult StatusChtayler Sanz DOECG ORDERABLES Final ResultPerforming OrganizationAddressCity/State/ZIP CodePhone Number [facility] * Troponin (11/23/2024 6:16 PM EDT) Only the most recent of5 resultswithin the time period is included. ComponentValueRef RangeTest MethodAnalysis TimePerformed AtPathologist Signature Troponin, High Sensitivity<60 - 14 ng/L1 6:16 PM [facility] LABComment:High Sensitivity Troponin values cannot be compared with other Troponin methodologies.Specimen (Source)Anatomical Location / Laterality Collection Method / VolumeCollection TimeReceived TimeBloodBLOOD SPECIMEN / Pirprdl3011/23/2024 6:16 PM EDT1 7:20 PM EDT Narrative Authorizing ProviderResult TypeResult StatusShelley Sanz DOCHEMISTRY ORDERABLESFinal ResultPerforming OrganizationAddressCity/State/ZIP CodePhone Number [facility] [address] [place] [address] * APTT (11/15/2024 1:25 PM EDT) Only the most recent of2 resultswithin the time period is included. ComponentValueRef RangeTest MethodAnalysis TimePerformed AtPathologist Signature APTT27.823.1 - 33.7 sec11/15/2024 1:25 PM [facility] Comment: ? IV Heparin Therapy Range: ?62.0-94.0 ? Specimen (Source)Anatomical Location / LateralityCollection Method / Volume Collection TimeReceived TimeBloodBLOOD SPECIMEN / Cjzglgt4611/15/2024 1:25 PM EDT 11/15/2024 1:49 PM EDT Narrative Authorizing ProviderResult TypeResult StatusJory Hurd DOHEMATOLOGY ORDERABLESFinal ResultPerforming OrganizationAddressCity/State/ZIP CodePhone Number [facility] [address] [place] [address] * (ABNORMAL) Brain Natriuretic Peptide (11/15/2024 1:25 PM EDT)ComponentValueRef RangeTest MethodAnalysis TimePerformed AtPathologist SignatureNT Pro-LEX393(H) 0 - 125 pg/mL11/15/2024 1:[address] [facility] LABSpecimen (Source)Anatomical Location / LateralityCollection Method / VolumeCollection TimeReceived TimeBloodBLOOD SPECIMEN / Ekrwjge4511/15/2024 1:25 PM EDT1 1:49 PM EDT Narrative Authorizing ProviderResult TypeResult StatusAlexafelicia Hurd DOCHEMISTRY ORDERABLESFinal ResultPerforming OrganizationAddressCity/State/ZIP CodePhone Number [facility] [address] [place] [address], [facility] [phone] * XR CHEST PORTABLE (11/15/2024 1:24 PM [...] ComponentValueRef RangeTest MethodAnalysis TimePerformed AtPathologist Signature POC Vbvvmeq410(H)70 - 99 mg/dl11/08/2024 11:06 PM [facility] LABPerformed onACCU-CHEK11/08/2024 11:06 PM [facility] LABSpecimen (Source)Anatomical Location / LateralityCollection Method / VolumeCollection TimeReceived Time11/08/2024 11:06 PM EDT11/08/2024 11:19 PM EDT Narrative Authorizing ProviderResult TypeResult StatusUnknown Provider ResultPOINT OF CARE TEST ORDERABLESFinal ResultPerforming OrganizationAddressCity/State/ZIP Code Phone Number [facility] [address] [address], [facility] [phone] * CTA CHEST ABDOMEN PELVIS W WO [...] bypass procedure. Authorizing ProviderResult TypeResult StatusAlen Santos [facility] ORDERABLESFinal Result * POCT Creatinine (11/08/2024 1:16 PM EDT)ComponentValueRef RangeTest Method Analysis TimePerformed AtPathologist SignaturePOC CREATININE WHOLE BLOOD0.6 Specimen (Source)Anatomical Location / LateralityCollection Method / Volume Collection TimeReceived TimeBLOOD SPECIMEN / Yhklpas8211/08/2024 1:16 PM EDT Narrative Authorizing ProviderResult TypeResult StatusOc Graham MDPOINT OF CARE TEST ORDERABLESFinal Result * POCT Venous (11/08/2024 1:14 PM EDT)ComponentValueRef RangeTest MethodAnalysis TimePerformed AtPathologist SignaturePOC Creatinine0.60.6 - 1.2 mg/dL 11/08/2024 1:14 PM [facility] LABEst, Glom Filt Rate>90 >60011/08/2024 1:14 PM [facility] LABComment: Pediatric calculator link https://www.kidney.org/professionals/kdoqi/gfr_calculatorped Effective [...] therapy that affects renal tubular secretion. Sample LwokSPF1011/08/2024 1:14 PM [facility] LABPerformed on SEE BELOW11/08/2024 1:14 PM [facility] LABComment:Performed on POCSpecimen (Source)Anatomical Location / LateralityCollection Method / VolumeCollection TimeReceived Time11/08/2024 1:14 PM EDT11/08/2024 1:54 PM EDT Narrative Authorizing ProviderResult TypeResult StatusOc Graham MDPOINT OF CARE TEST ORDERABLESFinal ResultPerforming OrganizationAddressCity/State/ZIP CodePhone Number [facility] [address] [place] [id number], [facility] [phone] * (ABNORMAL) Comprehensive Metabolic Panel w/ Reflex to MG (11/08/2024 12:50 PM EDT)ComponentValueRef RangeTest MethodAnalysis TimePerformed AtPathologist [id number] - 144 mEq/L11/08/2024 12:59 PM [facility] LABPotassium reflex Magnesium3.63.4 - 4.9 mEq/L11/08/2024 12:59 PM [facility] HTSOricmfbw64602 - 107 mEq/L11/08/2024 12:59 PM [facility] KSCRG24571 - 31 mEq/L11/08/2024 12:59 PM [facility] LABAnion Gap99 - 15 mEq/L11/08/2024 12:59 PM [facility] BJKStragos3526 - 99 mg/dL11/08/2024 12:59 PM [facility] EQNHBU010 - 20 mg/dL11/08/2024 12:59 PM EDT [facility] LABCreatinine0.560.50 - 0.90 mg/dL11/08/2024 12:59 PM [facility] LABEst, Glom Filt Rate>90.0>60 11/08/2024 12:59 PM [facility] LABComment: Pediatric calculator link https://www.kidney.org/professionals/kdoqi/gfr_calculatorped Effective [...] - 9.9 mg/dL11/08/2024 12:59 PM [facility] LABTotal Protein6.2(L)6.3 - 8.0 g/dL11/08/2024 12:59 PM [facility] LABAlbumin3.83.5 - 4.6 g/dL11/08/2024 12:59 PM [facility] LABTotal Bilirubin0.40.2 - 0.7 mg/dL11/08/2024 12:59 PM [facility] LABAlkaline Ivylbzcdjrd1452 - 130 U/L11/08/2024 12:59 PM EDT [facility] FOGDNA434 - 33 U/L11/08/2024 12:59 PM [facility] LVLNOT286 - 35 U/L11/08/2024 12:59 PM [facility] LABGlobulin2.42.3 - 3.5 g/dL11/08/2024 12:59 PM [facility] LABSpecimen (Source)Anatomical Location / LateralityCollection Method / VolumeCollection TimeReceived TimeBloodBLOOD SPECIMEN / Unknown 11/08/2024 12:50 PM EDT11/08/2024 12:50 PM EDT Narrative Authorizing ProviderResult TypeResult StatusAlen Santos MDCHEMISTRY ORDERABLES Final ResultPerforming OrganizationAddressCity/State/ZIP CodePhone Number [facility] [address] [place] [address], [facility] [phone] from Last 3 Months Insurance [address] [place] [address] Advance Directives * Full Code (Latest Code Status on File) Date ActivatedDate AmtgmgvwdaoWnjobrks71/14/2023 11:57 AM12/03/2022 7:56 PM NameRelationshipHealthcare Agent RelationshipCommunicationEdna ArtinoParent Secondary Decision Maker* Roddy RajivusePrimary Decision Maker* Care Teams Team MemberRelationshipSpecialtyStart DateEnd Thomas Alas MD [address] [place] [phone] PCP - GeneralFamily Medicine11/08/24
[2025-01-22] MEDS: PROCHLORPERAZINE 10 MG/2 ML VIAL IV (23:33)
[2025-01-22] MEDS: DIPHENHYDRAMINE HCL 50 MG/ML VIAL 25 MG IVP (23:33)
[2025-01-22] MEDS: 0.9 % SODIUM CHLORIDE 1,000 ML 999 ML IV (23:33)
[2025-01-22 23:46] LABS: Hematocrit 35.2 % (36.0-48.0); Hemoglobin 11.7 g/dL (12.0-16.0); Immature Granulocytes Abs Auto 0.00 10^3/uL (0.00-0.03); Immature Granulocytes Pct Auto 0.0 % (0.0-0.5); Lymphocytes Absolute Auto 1.5 10^3/uL (1.2-3.8); Mean Corpuscular HGB Conc 33.2 g/dL (29.9-35.2); Mean Corpuscular Hemoglobin 31.5 pg (26.7-34.0); Mean Corpuscular Volume 94.9 fL (81.0-99.0); Platelet Count 180 10^3/uL (150-450); Red Blood Count 3.71 10^6/uL (4.20-5.40); White Blood Count 3.6 10^3/uL (4.0-11.0)
[2025-01-22] MEDS: MORPHINE SULFATE 4 MG/ML VIAL IV (23:51)
[2025-01-23] VITALS: PULSE 67
[2025-01-23 00:04] LABS: Anion Gap 9.1; Blood Urea Nitrogen 8.0 mg/dL (7.0-18.0); Calcium 8.1 mg/dL (8.5-10.1); Carbon Dioxide 26.7 mmol/L (21.0-32.0); Chloride 109 mmol/L (98-107); Estimated GFR (African America >60 (>=60 mL/min/1.73m^2); Estimated GFR (Non-African Ame >60 (>=60 mL/min/1.73m^2); Glucose 90 mg/dL (74-106); Lactate/Lactic Acid 0.6 mmol/L (0.4-2.0); Potassium 3.8 mmol/L (3.5-5.1); Sodium 141 mmol/L (136-145)
[2025-01-23 00:10] VITALS: PULSE 69
[2025-01-23 00:20] VITALS: PULSE 63
[2025-01-23 00:30] VITALS: PULSE 72
[2025-01-23 00:40] VITALS: PULSE 64
[2025-01-23 03:55] VITALS: BP 131/56; PULSE 82; O2SAT 96
== END 2025-01-23 04:09 | disposition home or self-care (01) ==
PROVIDERS: Emergency Provider Internal Medicine; PCP Family Medicine
DX: R11.2 Nausea with vomiting, unspecified (principal); R10.84 Generalized abdominal pain; D50.9 Iron deficiency anemia, unspecified; K90.9 Intestinal malabsorption, unspecified
CPT/HCPCS: 36415; 74019; 74176; 80048; 81001; 83605; 84484; 85025; 93005; 96361; 96374; 96375; 99285; J0780; J1200; J2270

== ENCOUNTER 2025-01-23 11:10 | Observation (INO) | payer MEDICAID, SELFPAY ==
[2025-01-23] VITALS (7 sets, daily range): BP systolic 97–150; BP diastolic 66–83; PULSE 63–82; TEMP 36.4–36.6; O2SAT 98–100; BMI 29.1; BMI 29.7
--- NOTE | 2025-01-23 12:16 | ED.ABDPAIN1 ---
HPI - Abdominal Pain General Chief Complaint: Recheck/Abnormal Lab/Rx Stated Complaint: ABNORMAL LAB VALUES, NAUSEA Time Seen by Provider: 01/23/25 11:52 Source: patient Mode of arrival: walk-in Limitations: no limitations History of Present Illness HPI narrative: The patient have a extensive history presented to the ER with a low phosphorus of 1.3 found by the blood workup done as outpatient by the [facility] the patient was just discharged last night after she was evaluated in our facility for some decrease in p.o. intake and abdominal pain, mentioned that she still not able to tolerate p.o. as she have vomiting as she have a history of chronic nausea and vomiting, the patient take daily IV Compazine as well as IV Benadryl The patient denies any dizziness at the moment , she still have the left-sided abdominal pain that she had when she was evaluated yesterday, she had does take chronic pain medication including fentanyl patch Related Data Home Medications ?Medication ?Instructions ?Recorded ?Confirmed hydroxyzine HCl 25 mg tablet 25 mg PO BID PRN anxiety 09/17/22 01/18/25 topiramate 100 mg tablet 100 mg PO BID 09/17/22 01/18/25 escitalopram oxalate 20 mg tablet 20 mg PO DAILY 06/15/23 01/18/25 levothyroxine 75 mcg tablet 75 mcg PO DAILY 06/15/23 01/18/25 acetaminophen 325 mg tablet (Pain 650 mg PO Q4H PRN pain 06/24/23 01/18/25 Relief (acetaminophen)) blood sugar diagnostic (Oneuch 03/29/24 12/08/24 Ultra Test strips) blood-glucose meter (OneTouch 03/29/24 12/08/24 Ultra2 Meter) blood-glucose sensor (FreeStyle 03/29/24 12/08/24 Hunter 3 Plus Sensor device) fentanyl 25 mcg/hr transdermal 1 patch transdermal Q72H 03/29/24 01/18/25 patch hydrocodone 5 mg-acetaminophen 325 1 tab PO Q6H PRN pain 03/29/24 01/18/25 mg tablet lancets 30 gauge (OneTouch Delica 03/29/24 12/08/24 Plus Lancet) pen needle, diabetic 32 gauge x 03/29/24 12/08/24 (BD Stefania 2nd Gen Pen Needle) prucalopride 2 mg tablet 2 mg PO DAILY 03/29/24 01/18/25 trazodone 100 mg tablet 100 mg PO .qhs 03/29/24 01/18/25 mirtazapine 45 mg tablet 45 mg PO BEDTIME 08/16/24 01/18/25 aspirin 81 mg chewable tablet 1 tab PO .qd 11/19/24 01/18/25 clopidogrel 75 mg tablet 75 mg PO .qd 11/19/24 01/18/25 colchicine 0.6 mg tablet 0.3 mg PO .qod 11/19/24 01/18/25 fentanyl 12 mcg/hr transdermal 1 patch transdermal Q72H 11/19/24 01/18/25 patch methocarbamol 500 mg tablet 750 mg PO Q6H PRN Muscle spasm 11/19/24 01/18/25 metoprolol succinate 25 mg 25 mg PO .qd 11/19/24 01/18/25 tablet,extended release 24 hr ranolazine 500 mg tablet,extended 500 mg PO Q12H 11/19/24 01/18/25 release,12 hr rosuvastatin 40 mg tablet 40 mg PO .qhs 11/19/24 01/18/25 verapamil 40 mg tablet 40 mg PO Q8H 11/19/24 01/18/25 Previous Rx's ?Medication ?Instructions ?Recorded sodium di- and 1 tab PO DAILY #30 tabs 01/19/25 monophosphate-potassium phos monobasic 250 mg tablet (I-Wddl-Xaetusk) Allergies Allergy/AdvReac Type Severity Reaction Status Date / Time adhesive Allergy Rash Verified 01/23/25 11:14 NSAIDS (Non-Steroidal Allergy intolerance Verified 01/23/25 11:14 Anti-Inflamma codeine AdvReac Vomiting Verified 01/23/25 11:14 Review of Systems ROS Status of ROS 10 or more systems reviewed and unremarkable except as noted in history and below [facility] Medical History (Updated 01/23/25 @ 12:53 by Barbara Benítez MD) Coronary artery dissection ?I25.42 - Coronary artery dissection (ICD-10) Hypoglycemia ?E16.2 - Hypoglycemia, unspecified (ICD-10) Gastroenteritis ?K52.9 - Noninfective gastroenteritis and colitis, unspecified (ICD-10) Feeding by G-tube ?Z93.1 - Gastrostomy status (ICD-10) Abdominal pain ?R10.9 - Unspecified abdominal pain (ICD-10) Small bowel intussusception ?K56.1 - Intussusception (ICD-10) Nausea and vomiting ?R11.2 - Nausea with vomiting, unspecified (ICD-10) Flank pain ?R10.9 - Unspecified abdominal pain (ICD-10) Abdominal pain ?R10.9 - Unspecified abdominal pain (ICD-10) Acute abdomen ?R10.0 - Acute abdomen (ICD-10) Intractable nausea and vomiting ?R11.2 - Nausea with vomiting, unspecified (ICD-10) Intractable abdominal pain ?R10.9 - Unspecified abdominal pain (ICD-10) Depression ?F32.A - Depression, unspecified (ICD-10) Asthma ?J45.909 - Unspecified asthma, uncomplicated (ICD-10) Dyspareunia Pelvic pain ?R10.2 - Pelvic and perineal pain (ICD-10) Ovarian cyst ?N83.209 - Unspecified ovarian cyst, unspecified side (ICD-10) PONV (postoperative nausea and vomiting) ?R11.2 - Nausea with vomiting, unspecified (ICD-10) ?Z98.890 - Other specified postprocedural states (ICD-10) PCOS (polycystic ovarian syndrome) ?E28.2 - Polycystic ovarian syndrome (ICD-10) Hypothyroidism (acquired) ?E03.9 - Hypothyroidism, unspecified (ICD-10) Anxiety ?F41.9 - Anxiety disorder, unspecified (ICD-10) GERD (gastroesophageal reflux disease) ?K21.9 - Gastro-esophageal reflux disease without esophagitis (ICD-10) Sleep apnea ?G47.30 - Sleep apnea, unspecified (ICD-10) Anemia ?D64.9 - Anemia, unspecified (ICD-10) Fibromyalgia ?M79.7 - Fibromyalgia (ICD-10) Syncope (07/07/13) ?R55 - Syncope and collapse (ICD-10) Shingles ?B02.9 - Zoster without complications (ICD-10) Headache ?R51.9 - Headache, unspecified (ICD-10) Migraine ?G43.909 - Migraine, unspecified, not intractable, without status migrainosus (ICD-10) Mechanical ileus (01/31/20) ?K56.609 - Unspecified intestinal obstruction, unspecified as to partial versus complete obstruction (ICD-10) COVID-19 (~02/2020) ?U07.1 - COVID-19 (ICD-10) Kidney stones ?N20.0 - Calculus of kidney (ICD-10) Surgical History S/P percutaneous endoscopic gastrostomy (PEG) tube placement ?Z93.1 - Gastrostomy status (ICD-10) 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 - Celiac artery compression syndrome (ICD-10) H/O shoulder surgery (2022) ?Z98.890 - Other specified postprocedural states (ICD-10) History of hip surgery ?Z98.890 - Other specified postprocedural states (ICD-10) S/P right knee arthroscopy ?Z98.890 - Other specified postprocedural states (ICD-10) S/P left knee arthroscopy ?Z98.890 - Other specified postprocedural states (ICD-10) Hx of tonsillectomy ?Z90.89 - Acquired absence of other organs (ICD-10) History of thoracic surgery (~2021) ?Z98.890 - Other specified postprocedural states (ICD-10) History of esophagogastroduodenoscopy (EGD) (10/04/13) ?Z98.890 - Other specified postprocedural states (ICD-10) History of cholecystectomy (10/06/13) ?Z90.49 - Acquired absence of other specified parts of digestive tract (ICD-10) Delivery by section (~2016) Delivery by section (01/17/18) H/O colonoscopy (~2018) ?Z98.890 - Other specified postprocedural states (ICD-10) S/P right knee arthroscopy (07/21/18) ?Z98.890 - Other specified postprocedural states (ICD-10) Delivery by section (06/19/19) History of appendectomy (09/25/19) ?Z90.49 - Acquired absence of other specified parts of digestive tract (ICD-10) H/O laparoscopy (11/10/19) ?Z98.890 - Other specified postprocedural states (ICD-10) History of liver biopsy (~04/2020) ?Z98.890 - Other specified postprocedural states (ICD-10) H/O laparoscopy (07/18/20) ?Z98.890 - Other specified postprocedural states (ICD-10) H/O arthroscopy of right knee (08/07/20) ?Z98.890 - Other specified postprocedural states (ICD-10) S/P laparoscopic sleeve gastrectomy (09/03/20) ?Z98.84 - Bariatric surgery status (ICD-10) H/O: hysterectomy (11/12/20) ?Z90.710 - Acquired absence of both cervix and uterus (ICD-10) History of hernia repair (03/20/21) ?Z98.890 - Other specified postprocedural states (ICD-10) ?Z87.19 - Personal history of other diseases of the digestive system (ICD-10) Family History Other Family history of cancer Family history of diabetes mellitus Family history of hypertension Family history of myocardial infarction PONV (postoperative nausea and vomiting) Social History Within the past year, how often did you have a drink containing alcohol: never Score interpretation: A score less than 3 is consistent with normal alcohol consumption. Smoking status: Never smoker Non-prescribed substance use: denies use Previous occupational history: disabled Known occupational exposures/hazards details: disabled Highest level of school completed/degree received: Master's degree Are you now , , , , never or living with a partner: In a typical week, how many times do you talk on the telephone with family, friends, or neighbors: 3 or more times per week How often do you get together with friends or relatives: twice per week How often do you attend scientology or advent services: 4 or more times per year Do you belong to any clubs or organizations such as scientology groups unions, fraternal or athletic groups, or school groups: no Total score: 3 Score interpretation: A score of greater than or equal to 2 indicates the lowest level of social isolation. Little interest or pleasure in doing things: not at all Feeling down, depressed, or hopeless: not at all Feel stressed/tense/nervous/anxious/difficulty sleeping: to some extent Do you think of yourself as: straight/heterosexual Gender Identity: female Exam Narrative Exam Narrative: Nurses notes and vital signs reviewed and patient is not hypoxic. General: Well-appearing and in no apparent distress. Skin: Warm, dry, no pallor noted. No rash. Head: Normocephalic, atraumatic. Neck: Supple, non-tender. Cardiovascular: Regular Rate and Rhythm without murmur, gallop or rub. Respiratory: No accessory muscle use or respiratory distress. Lungs are clear to auscultation, no wheezing, rales or rhonchi Chest Wall: no tenderness Back: No midline thoracic or lumbar vertebral tenderness. No CVA tenderness Musculoskeletal: normal ROM, no calf or popliteal tenderness, no lower extremity edema/swelling GI: Abdomen is soft, non-distended. Normal bowel sounds. No masses appreciated. No tenderness to palpation. No rebound, guarding, or rigidity noted. Neurological: A&O x4. No cranial nerve dysfunction observed. No truncal ataxia. Moves all extremities. Sensation intact. Psychiatric: Cooperative and interactive. Normal mood and affect. Constitutional Vital Signs, click to edit/add: Last Vital Signs Temp 97.6 F 01/23/25 11:14 Pulse 82 01/23/25 11:14 Resp 18 01/23/25 11:14 BP 150/83 H 01/23/25 11:14 Pulse Ox 100 01/23/25 11:14 Course Vital Signs Vital signs: Vital Signs Temperature 97.6 F 01/23/25 11:14 Pulse Rate 82 01/23/25 11:14 Respiratory Rate 18 01/23/25 11:14 Blood Pressure 150/83 H 01/23/25 11:14 Pulse Oximetry 100 01/23/25 11:14 Temperature 97.6 F 01/23/25 11:14 Pulse Rate 82 01/23/25 11:14 Respiratory Rate 18 01/23/25 11:14 Blood Pressure 150/83 H 01/23/25 11:14 Pulse Oximetry 100 01/23/25 11:14 MDM - Abdominal Pain MDM Narrative Medical decision making narrative: I could not induce the pain with my palpation but the patient had blood workup done as outpatient showing that her blood sugar 63 in addition to phosphorus 1.3 and her protein was 5.6 potassium was 3.8 with a magnesium of 1.9 Normal kidney function with a calcium of 8.1 The patient was already evaluated extensively yesterday in the ER with a CAT scan and an x-ray of the abdomen showing no acute pathology with a blood workup shows no significant changes compared to her baseline as well The patient had an x-ray here that shows no obstruction but she does have constipation, I think the patient problem is multifactorial but the main issue right now is hypophosphatemia with a phosphorus of 1.3 The patient will be admitted for IV phosphorus management and she was started initially on IV potassium phosphate here in the ER She had a previous presentation as well that is similar The patient also start IV fluid hydration given morphine and Zofran as well Patient case discussed with Dr. Auguste and he is agreeable with above-mentioned plan for observation Lab Data Labs: Lab Results 01/23/25 Range/Units 12:13 POC Glucose 85 (74-106) mg/dL Discharge Plan Discharge Chief Complaint: Recheck/Abnormal Lab/Rx Clinical Impression: Hypophosphatemia, Abdominal pain Patient Disposition: Admitted as Observation Time of Disposition Decision: 13:43
[2025-01-23] MEDS: 0.9 % SODIUM CHLORIDE 1,000 ML 1000 ML IV (12:50)
[2025-01-23] MEDS: FAMOTIDINE/PF 20 MG/2 ML VIAL IV (12:51)
--- NOTE | 2025-01-23 12:51 | XR_ITS ---
The [address] [address] Patient Name: UJAN KONG MRN: [id number] date: 1990 Sex: F Assigned Patient Location: ED.MAIN Current Patient Location: ED.MAIN Accession/Order Number: [id number] Exam Date: 01/23/2025 13:05 Report Date: 01/23/2025 13:20 At the request of: WALKER WILLOUGHBY MD Procedure: XR abdomen 1V XR abdomen 1V 01/23/2025 1:09 PM SIGNS AND SYMPTOMS: ^sbo ? PROTOCOL: Frontal radiograph of the abdomen and pelvis COMPARISON: 01/23/2025 FINDINGS: There is evidence of prior cholecystectomy. Vascular calcifications are noted in the pelvis. There is a nonobstructive bowel gas pattern. There is a moderate amount stool within the colon, decreasing when compared to the prior CT. XR/XR abdomen 1V IMPRESSION: No bowel obstruction. There is a moderate amount of stool within the colon decreasing prior exam. Impression dictated by: Roddy Hutchinson M.D. 01/23/2025 1:20 PM Dictation Location: [place] [address] Electronically authenticated by: [id number] Y Date: 01/23/2025 13:20
[2025-01-23] MEDS: POTASSIUM PHOS,M-BASIC-D-BASIC 15 MMOL in 0.9 % SODIUM CHLORIDE 100 ML 26.25 MMOL IV (13:24)
[2025-01-23] MEDS: MORPHINE SULFATE 4 MG/ML VIAL IV (13:51)
[2025-01-23 13:56] LABS: Hematocrit 34.2 % (36.0-48.0); Hemoglobin 11.6 g/dL (12.0-16.0); Immature Granulocytes Abs Auto 0.01 10^3/uL (0.00-0.03); Immature Granulocytes Pct Auto 0.2 % (0.0-0.5); Lymphocytes Absolute Auto 1.0 10^3/uL (1.2-3.8); Mean Corpuscular HGB Conc 33.9 g/dL (29.9-35.2); Mean Corpuscular Hemoglobin 31.9 pg (26.7-34.0); Mean Corpuscular Volume 94.0 fL (81.0-99.0); Platelet Count 186 10^3/uL (150-450); Red Blood Count 3.64 10^6/uL (4.20-5.40); White Blood Count 5.2 10^3/uL (4.0-11.0)
[2025-01-23 14:07] LABS: Alanine Aminotransferase 24 U/L (14-59); Albumin Globulin Ratio 1.3; Albumin Level 3.3 g/dL (3.4-5.0); Alkaline Phosphatase 83 U/L (46-116); Anion Gap 9.4; Aspartate Amino Transferase 26 U/L (15-37); Blood Urea Nitrogen 6.0 mg/dL (7.0-18.0); Calcium 7.9 mg/dL (8.5-10.1); Carbon Dioxide 26.5 mmol/L (21.0-32.0); Chloride 109 mmol/L (98-107); Estimated GFR (African America >60 (>=60 mL/min/1.73m^2); Estimated GFR (Non-African Ame >60 (>=60 mL/min/1.73m^2); Globulin 2.6 g/dL; Glucose 86 mg/dL (74-106); Magnesium 1.8 mg/dL (1.8-2.4); Potassium 3.9 mmol/L (3.5-5.1); Sodium 141 mmol/L (136-145); Total Protein 5.9 g/dL (6.4-8.2)
--- NOTE | 2025-01-23 14:36 | PM.IMHP1 ---
Internal Medicine - H&P: HPI History of Present Illness Chief complaint: ABNORMAL LAB VALUES, NAUSEA, HYPOPHOSATEMIA, N/V Narrative: This is a 34-year-old female with complicated past medical history including chronic abdominal pain from previous SBO, last surgery of which was last month as she mentions, ileus, lumbar spondylosis, here for low phosphorous on her outpatient labs. She is known to staff here from previous admissions for chronic abdominal pain and intractable nausea and vomiting with electrolyte disturbance, last admission was on 01/19/2025 for hypophosphatemia and was discharged on oral potassium phosphate packet,. Patient comes back today with abdominal pain of 3 days duration left lower quadrant in location sharp and crampy radiating to the left flank. She denies any fever or chills. She states her last bowel movement was this morning she came in last evening and underwent imaging and labs and was discharged after medications were given to her. Workup from last night included CT abdomen pelvis without IV contrast that showed no bowel obstruction or perforation, no hydronephrosis or ureteral calculus, and showed postsurgical changes. Patient states that the pain came back this morning and had to come back to the ED. The main reason that brought her back as she mentions was that her outpatient labs done with clinic clinic showed phosphorus of 1.3, magnesium of 1.9, potassium was 3.8, and total protein was 5 point t she cannot keep anything down and states anything that she eats because her nausea and vomiting. In the ED patient was afebrile with no hypotension or tachycardia. She was saturating well on room air. Her CBC here in the ED showed hemoglobin of 11.6, white blood cell count of 5200, and platelet count of 186,000. CMP did show BUN of 6, creatinine of 0.47, phosphorus of 1.7. Patient was referred to observation under hospitalist service after my discussion with the ED, she received 1 dose of potassium phosphate along with phosphorus 15 mmol IV once. Review of Systems ROS Status of ROS 10 or more systems reviewed and unremarkable except as noted in history and below [facility] Medical History (Updated 01/23/25 @ 14:45 by Sima Auguste MD) Coronary artery dissection ?I25.42 - Coronary artery dissection (ICD-10) Hypoglycemia ?E16.2 - Hypoglycemia, unspecified (ICD-10) Gastroenteritis ?K52.9 - Noninfective gastroenteritis and colitis, unspecified (ICD-10) Feeding by G-tube ?Z93.1 - Gastrostomy status (ICD-10) Abdominal pain ?R10.9 - Unspecified abdominal pain (ICD-10) Small bowel intussusception ?K56.1 - Intussusception (ICD-10) Nausea and vomiting ?R11.2 - Nausea with vomiting, unspecified (ICD-10) Flank pain ?R10.9 - Unspecified abdominal pain (ICD-10) Abdominal pain ?R10.9 - Unspecified abdominal pain (ICD-10) Acute abdomen ?R10.0 - Acute abdomen (ICD-10) Intractable nausea and vomiting ?R11.2 - Nausea with vomiting, unspecified (ICD-10) Intractable abdominal pain ?R10.9 - Unspecified abdominal pain (ICD-10) Depression ?F32.A - Depression, unspecified (ICD-10) Asthma ?J45.909 - Unspecified asthma, uncomplicated (ICD-10) Dyspareunia Pelvic pain ?R10.2 - Pelvic and perineal pain (ICD-10) Ovarian cyst ?N83.209 - Unspecified ovarian cyst, unspecified side (ICD-10) PONV (postoperative nausea and vomiting) ?R11.2 - Nausea with vomiting, unspecified (ICD-10) ?Z98.890 - Other specified postprocedural states (ICD-10) PCOS (polycystic ovarian syndrome) ?E28.2 - Polycystic ovarian syndrome (ICD-10) Hypothyroidism (acquired) ?E03.9 - Hypothyroidism, unspecified (ICD-10) Anxiety ?F41.9 - Anxiety disorder, unspecified (ICD-10) GERD (gastroesophageal reflux disease) ?K21.9 - Gastro-esophageal reflux disease without esophagitis (ICD-10) Sleep apnea ?G47.30 - Sleep apnea, unspecified (ICD-10) Anemia ?D64.9 - Anemia, unspecified (ICD-10) Fibromyalgia ?M79.7 - Fibromyalgia (ICD-10) Syncope (07/07/13) ?R55 - Syncope and collapse (ICD-10) Shingles ?B02.9 - Zoster without complications (ICD-10) Headache ?R51.9 - Headache, unspecified (ICD-10) Migraine ?G43.909 - Migraine, unspecified, not intractable, without status migrainosus (ICD-10) Mechanical ileus (01/31/20) ?K56.609 - Unspecified intestinal obstruction, unspecified as to partial versus complete obstruction (ICD-10) COVID-19 (~02/2020) ?U07.1 - COVID-19 (ICD-10) Kidney stones ?N20.0 - Calculus of kidney (ICD-10) Surgical History (Updated 01/23/25 @ 14:08 by Rosa Day) Gastric bypass status for obesity ?Z98.84 - Bariatric surgery status (ICD-10) S/P percutaneous endoscopic gastrostomy (PEG) tube placement ?Z93.1 - Gastrostomy status (ICD-10) 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 - Celiac artery compression syndrome (ICD-10) H/O shoulder surgery (2022) ?Z98.890 - Other specified postprocedural states (ICD-10) History of hip surgery ?Z98.890 - Other specified postprocedural states (ICD-10) S/P right knee arthroscopy ?Z98.890 - Other specified postprocedural states (ICD-10) S/P left knee arthroscopy ?Z98.890 - Other specified postprocedural states (ICD-10) Hx of tonsillectomy ?Z90.89 - Acquired absence of other organs (ICD-10) History of thoracic surgery (~2021) ?Z98.890 - Other specified postprocedural states (ICD-10) History of esophagogastroduodenoscopy (EGD) (10/04/13) ?Z98.890 - Other specified postprocedural states (ICD-10) History of cholecystectomy (10/06/13) ?Z90.49 - Acquired absence of other specified parts of digestive tract (ICD-10) Delivery by section (~2016) Delivery by section (01/17/18) H/O colonoscopy (~2018) ?Z98.890 - Other specified postprocedural states (ICD-10) S/P right knee arthroscopy (07/21/18) ?Z98.890 - Other specified postprocedural states (ICD-10) Delivery by section (06/19/19) History of appendectomy (09/25/19) ?Z90.49 - Acquired absence of other specified parts of digestive tract (ICD-10) H/O laparoscopy (11/10/19) ?Z98.890 - Other specified postprocedural states (ICD-10) History of liver biopsy (~04/2020) ?Z98.890 - Other specified postprocedural states (ICD-10) H/O laparoscopy (07/18/20) ?Z98.890 - Other specified postprocedural states (ICD-10) H/O arthroscopy of right knee (08/07/20) ?Z98.890 - Other specified postprocedural states (ICD-10) S/P laparoscopic sleeve gastrectomy (09/03/20) ?Z98.84 - Bariatric surgery status (ICD-10) H/O: hysterectomy (11/12/20) ?Z90.710 - Acquired absence of both cervix and uterus (ICD-10) History of hernia repair (03/20/21) ?Z98.890 - Other specified postprocedural states (ICD-10) ?Z87.19 - Personal history of other diseases of the digestive system (ICD-10) Family History Other Family history of cancer Family history of diabetes mellitus Family history of hypertension Family history of myocardial infarction PONV (postoperative nausea and vomiting) Social History Within the past year, how often did you have a drink containing alcohol: never Score interpretation: A score less than 3 is consistent with normal alcohol consumption. Smoking status: Never smoker Non-prescribed substance use: denies use Previous occupational history: disabled Known occupational exposures/hazards details: disabled Highest level of school completed/degree received: Master's degree Are you now , , , , never or living with a partner: In a typical week, how many times do you talk on the telephone with family, friends, or neighbors: 3 or more times per week How often do you get together with friends or relatives: twice per week How often do you attend rastafarian or jew services: 4 or more times per year Do you belong to any clubs or organizations such as rastafarian groups unions, [employer] or athletic groups, or school groups: no Total score: 3 Score interpretation: A score of greater than or equal to 2 indicates the lowest level of social isolation. Little interest or pleasure in doing things: not at all Feeling down, depressed, or hopeless: not at all Feel stressed/tense/nervous/anxious/difficulty sleeping: to some extent Do you think of yourself as: straight/heterosexual Gender Identity: female Meds Home Medications and Allergies Home Medications ?Medication ?Instructions ?Recorded ?Confirmed ?Type hydroxyzine HCl 25 mg tablet 25 mg PO BID PRN anxiety 09/17/22 01/18/25 History topiramate 100 mg tablet 100 mg PO BID 09/17/22 01/18/25 History escitalopram oxalate 20 mg tablet 20 mg PO DAILY 06/15/23 01/18/25 History levothyroxine 75 mcg tablet 75 mcg PO DAILY 06/15/23 01/18/25 History acetaminophen 325 mg tablet (Pain 650 mg PO Q4H PRN pain 06/24/23 01/18/25 History Relief (acetaminophen)) [facility] 12/08/24 History Ultra Test strips) [facility]glucose [facility] 12/08/24 History Ultra2 Meter) blood-glucose sensor ([employer] 03/29/24 12/08/24 History Hunter 3 Plus Sensor device) fentanyl 25 mcg/hr transdermal 1 patch transdermal Q72H 03/29/24 01/18/25 History patch hydrocodone 5 mg-acetaminophen 325 1 tab PO Q6H PRN pain 03/29/24 01/18/25 History mg tablet lancets 30 gauge ([employer] 03/29/24 12/08/24 History Plus Lancet) pen needle, diabetic 32 gauge x 03/29/24 12/08/24 History 5/32 (BD Stefania 2nd Gen Pen Needle) prucalopride 2 mg tablet 2 mg PO DAILY 03/29/24 01/18/25 History trazodone 100 mg tablet 100 mg PO .qhs 03/29/24 01/18/25 History mirtazapine 45 mg tablet 45 mg PO BEDTIME 08/16/24 01/18/25 History aspirin 81 mg chewable tablet 1 tab PO .qd 11/19/24 01/18/25 History clopidogrel 75 mg tablet 75 mg PO .qd 11/19/24 01/18/25 History colchicine 0.6 mg tablet 0.3 mg PO .qod 11/19/24 01/18/25 History fentanyl 12 mcg/hr transdermal 1 patch transdermal Q72H 11/19/24 01/18/25 History patch methocarbamol 500 mg tablet 750 mg PO Q6H PRN Muscle spasm 11/19/24 01/18/25 History metoprolol succinate 25 mg 25 mg PO .qd 11/19/24 01/18/25 History tablet,extended release 24 hr ranolazine 500 mg tablet,extended 500 mg PO Q12H 11/19/24 01/18/25 History release,12 hr rosuvastatin 40 mg tablet 40 mg PO .qhs 11/19/24 01/18/25 History verapamil 40 mg tablet 40 mg PO Q8H 11/19/24 01/18/25 History sodium di- and 1 tab PO DAILY #30 tabs 01/19/25 Rx monophosphate-potassium phos monobasic 250 mg tablet (T-[id number]) Allergies Allergy/AdvReac Type Severity Reaction Status Date / Time adhesive Allergy Rash Verified 01/23/25 11:14 NSAIDS (Non-Steroidal Allergy intolerance Verified 01/23/25 11:14 Anti-Inflamma codeine AdvReac Vomiting Verified 01/23/25 11:14 Exam Narrative Exam Narrative: General: Ill-appearing, cachectic, disheveled, frail, chronically ill however not in acute distress when I saw her. She is very pleasant cooperative on my exam Skin: Warm, dry, no pallor noted. No rash. Head: Normocephalic, atraumatic. Neck: Supple, non-tender. no JVD, no lymphadenopathy, no thyromegaly Cardiovascular: Regular Rate and Rhythm without murmur, gallop or rub Respiratory: No accessory muscle use or respiratory distress Lungs are clear to auscultation, no wheezing, rales or rhonchi Chest Wall: no tenderness Back: No midline thoracic or lumbar vertebral tenderness. No CVA tenderness Musculoskeletal: normal ROM, no calf or popliteal tenderness, no lower extremity edema/swelling GI: Abdomen is soft, surgical scar in place, no tenderness to my palpation, no signs of acute abdomen, No masses appreciated. No rebound, guarding, or rigidity noted. Normal active bowel sounds on my auscultation Neurological: A&O x4. No cranial nerve dysfunction observed. No truncal ataxia. Moves all extremities. Sensation intact Constitutional Vital Signs, click to edit/add: Last Vital Signs Temp 97.8 F 01/23/25 14:32 Pulse 79 01/23/25 14:32 Resp 16 01/23/25 14:32 BP 119/81 01/23/25 14:32 Pulse Ox 100 01/23/25 14:32 O2 Del Method Room Air 01/23/25 14:32 Internal Medicine - H&P: Reslt Labs Labs: Short CBC 01/23/25 Range/Units 13:15 WBC 5.2 (4.0-11.0) 10^3/uL Hgb 11.6 L (12.0-16.0) g/dL Hct 34.2 L (36.0-48.0) % Plt Count 186 (150-450) 10^3/uL BMP 01/23/25 13:15 Sodium 141 Potassium 3.9 Chloride 109 H Carbon Dioxide 26.5 BUN 6.0 L Creatinine 0.47 L Glucose 86 Calcium 7.9 L Liver Function 01/23/25 Range/Units 13:15 Total Bilirubin 0.2 (0.2-1.0) mg/dL AST 26 (15-37) U/L ALT 24 (14-59) U/L Alkaline Phosphatase 83 (46-116) U/L Albumin 3.3 L (3.4-5.0) g/dL Assessment and Plan Assessment and Plan (1) Abdominal pain: (2) Abnormal laboratory test: (3) Nausea & vomiting: (4) Hypophosphatemia: Plan Acute on chronic intractable nausea and vomiting along with abdominal pain in the setting of history of multiple abdominal surgeries/ileus/SBO Patient is not currently in any acute SBO during my encounter today Hypophosphatemia and hypokalemia in the setting of poor oral intake and dehydration - Admit patient under observation to medical floor telemetry -Patient received 1 dose of IV potassium phosphate I will check her phosphorus level tomorrow morning May replete accordingly -Start NS 100 mL/h for total of 2 L -IV Dilaudid and Benadryl for pain control -IV Compazine for nausea and vomiting, QTc is 431 msec -I will start with clear liquid and will advance diet as tolerated -Will watch her electrolytes closely -I discussed the plan with the patient in details. Answered all her question -Full code, DVT and GI prophylaxis addressed
[2025-01-23] MEDS: PROCHLORPERAZINE 10 MG/2 ML VIAL 5 MG IV (16:11)
[2025-01-23] MEDS: DIPHENHYDRAMINE HCL 50 MG/ML VIAL 25 MG IVP (16:11)
[2025-01-23] MEDS: HYDROMORPHONE HCL 0.5 MG/0.5 ML SYRINGE IV (16:12)
[2025-01-23] MEDS: HYDROCODONE/ACET 5-325 MG TABLET 1 TAB PO (20:02)
[2025-01-23] MEDS: TRAZODONE HCL 50 MG TABLET 100 MG PO (21:05)
[2025-01-23] MEDS: MIRTAZAPINE 15 MG TABLET 45 MG PO (21:05)
[2025-01-23] MEDS: VERAPAMIL HCL 40 MG TABLET PO (21:05)
[2025-01-23] MEDS: RANOLAZINE 500 MG TAB.ER.12H PO (21:05)
[2025-01-24] VITALS (8 sets, daily range): BP systolic 107–112; BP diastolic 74–76; PULSE 58–90; TEMP 36.6; O2SAT 95–99
[2025-01-24] MEDS: PROCHLORPERAZINE 10 MG/2 ML VIAL 5 MG IV ×3 (00:47→14:09)
[2025-01-24] MEDS: DIPHENHYDRAMINE HCL 50 MG/ML VIAL 25 MG IVP ×3 (00:48→14:09)
[2025-01-24] MEDS: HYDROMORPHONE HCL 0.5 MG/0.5 ML SYRINGE IV ×2 (00:48→06:23)
[2025-01-24] MEDS: HYDROCODONE/ACET 5-325 MG TABLET 1 TAB PO ×2 (05:02→10:56)
[2025-01-24] MEDS: VERAPAMIL HCL 40 MG TABLET PO ×2 (05:18→14:09)
[2025-01-24 05:54] LABS: Hematocrit 32.4 % (36.0-48.0); Hemoglobin 10.7 g/dL (12.0-16.0); Immature Granulocytes Abs Auto 0.00 10^3/uL (0.00-0.03); Immature Granulocytes Pct Auto 0.0 % (0.0-0.5); Lymphocytes Absolute Auto 1.2 10^3/uL (1.2-3.8); Mean Corpuscular HGB Conc 33.0 g/dL (29.9-35.2); Mean Corpuscular Hemoglobin 31.3 pg (26.7-34.0); Mean Corpuscular Volume 94.7 fL (81.0-99.0); Platelet Count 169 10^3/uL (150-450); Red Blood Count 3.42 10^6/uL (4.20-5.40); White Blood Count 2.6 10^3/uL (4.0-11.0)
[2025-01-24 06:14] LABS: Alanine Aminotransferase 22 U/L (14-59); Albumin Globulin Ratio 1.2; Albumin Level 2.7 g/dL (3.4-5.0); Alkaline Phosphatase 69 U/L (46-116); Anion Gap 7.3; Aspartate Amino Transferase 24 U/L (15-37); Blood Urea Nitrogen 3.0 mg/dL (7.0-18.0); Calcium 7.8 mg/dL (8.5-10.1); Carbon Dioxide 28.6 mmol/L (21.0-32.0); Chloride 110 mmol/L (98-107); Estimated GFR (African America >60 (>=60 mL/min/1.73m^2); Estimated GFR (Non-African Ame >60 (>=60 mL/min/1.73m^2); Globulin 2.3 g/dL; Glucose 76 mg/dL (74-106); Magnesium 1.7 mg/dL (1.8-2.4); Potassium 3.9 mmol/L (3.5-5.1); Sodium 142 mmol/L (136-145); Total Protein 5.0 g/dL (6.4-8.2)
[2025-01-24] MEDS: ESCITALOPRAM 10 MG TABLET 20 MG PO (09:13)
[2025-01-24] MEDS: ASPIRIN 81 MG TAB.CHEW PO (09:13)
[2025-01-24] MEDS: PHOSPHO-TRIN 250 NEUTRAL 250 MG TABLET PO (09:13)
[2025-01-24] MEDS: RANOLAZINE 500 MG TAB.ER.12H PO (09:13)
[2025-01-24] MEDS: METOPROLOL SUCCINATE 25 MG TAB.ER.24H PO (09:13)
[2025-01-24] MEDS: CLOPIDOGREL BISULFATE 75 MG TABLET PO (09:13)
[2025-01-24] MEDS: FENTANYL 12 MCG/HR PATCH.TD72 TD (09:14)
[2025-01-24] MEDS: FENTANYL 25 MCG/HR PATCH.TD72 TD (09:15)
[2025-01-24] MEDS: 0.9 % SODIUM CHLORIDE 10 ML VIAL 5 ML IV (09:15)
[2025-01-24] MEDS: LEVOTHYROXINE SODIUM 100 MCG VIAL 60 MCG IV (09:15)
[2025-01-24] MEDS: MAGNESIUM SULFATE IN WATER 2 GM/50 ML PREMIX IV (09:58)
--- NOTE | 2025-01-24 10:00 | CM.NOTE ---
Rounds made with Dr. Auguste, pt will discharge to home today. Pt has f/u with PCP scheduled for 01/25. Pt will be given outpatient lab form for repeat labs on 01/25.
[2025-01-24] MEDS: POTASSIUM PHOS,M-BASIC-D-BASIC 15 MMOL in 0.9 % SODIUM CHLORIDE 100 ML 26.25 MMOL IV (10:56)
--- NOTE | 2025-01-24 11:00 | CM.NOTE ---
CM back in to give pt lab requisition for outpatient lab work scheduled for 01/25. Pt verbalizes understanding. Pt asking for Benadryl and Compazine IV prior to discharge, CM will discuss with Dr. Auguste.
--- NOTE | 2025-01-24 11:30 | CM.NOTE ---
Dr. Auguste given verbal order for CM to given Benadryl 25mg, Compazine 5mg both IV at 14:00. CM entered order.
--- NOTE | 2025-01-24 11:51 | P.DS_ITS ---
DS: Providers Provider Date of admission: 01/23/25 14:13 Primary care physician: Thomas Alas MD Anticipated date of discharge: 01/24/25 DS: Diagnosis Discharge Diagnosis (1) Abdominal pain: (2) Abnormal laboratory test: (3) Nausea & vomiting: (4) Hypophosphatemia: Plan As above DS: Summary Hospital Course Hospital Course: This is a 34-year-old female with complicated past medical history including chronic abdominal pain from previous SBO, last surgery of which was last month as she mentions, ileus, lumbar spondylosis, here for low phosphorous on her outpatient labs. She is known to staff here from previous admissions for chronic abdominal pain and intractable nausea and vomiting with electrolyte disturbance, last admission was on 01/19/2025 for hypophosphatemia and was discharged on oral potassium phosphate packet,. Patient comes back today with abdominal pain of 3 days duration left lower quadrant in location sharp and crampy radiating to the left flank. She denies any fever or chills. She states her last bowel movement was this morning she came in last evening and underwent imaging and labs and was discharged after medications were given to her. Workup from last night included CT abdomen pelvis without IV contrast that showed no bowel obstruction or perforation, no hydronephrosis or ureteral calculus, and showed postsurgical changes. Patient states that the pain came back this morning and had to come back to the ED. The main reason that brought her back as she mentions was that her outpatient labs done with clinic clinic showed phosphorus of 1.3, magnesium of 1.9, potassium was 3.8, and total protein was 5 point t she cannot keep anything down and states anything that she eats because her nausea and vomiting. In the ED patient was afebrile with no hypotension or tachycardia. She was saturating well on room air. Her CBC here in the ED showed hemoglobin of 11.6, white blood cell count of 5200, and platelet count of 186,000. CMP did show BUN of 6, creatinine of 0.47, phosphorus of 1.7. Patient was referred to kylie gilliam under hospitalist service after my discussion with the ED, she received 1 dose of potassium phosphate along with phosphorus 15 mmol IV once. (1) Abdominal pain: (2) Abnormal laboratory test: (3) Nausea & vomiting: (4) Hypophosphatemia: Acute on chronic intractable nausea and vomiting along with abdominal pain in the setting of history of multiple abdominal surgeries/ileus/SBO Patient is not currently in any acute SBO during my encounter today Hypophosphatemia and hypokalemia in the setting of poor oral intake and dehydration - Admit patient under observation to medical floor telemetry -Patient received 1 dose of IV potassium phosphate I will check her phosphorus level tomorrow morning May replete accordingly -Start NS 100 mL/h for total of 2 L -IV Dilaudid and Benadryl for pain control -IV Compazine for nausea and vomiting, QTc is 431 msec -I will start with clear liquid and will advance diet as tolerated -Will watch her electrolytes closely -I discussed the plan with the patient in details. Answered all her question -Full code, DVT and GI prophylaxis addressed 01/24/2025 Pt seen and examined at bedside, feeling much better than yesterday. She had a bowel movement, states that her pain is better. Her mag is 1.7 phosphorus 2.4 I gave her potassium phosphate IV as well as 1 dose of magnesium IV 2 g. Patient is ready to be discharged today. She will follow-up with her outpatient IV infusion center for IV Benadryl and Compazine. She did have a bowel movement she does not have any abdominal tenderness. She has no nausea or vomiting and she tolerated diet today. She will be discharged today Status at Discharge Overall status at discharge: patient is back to baseline Time Spent with Patient Time attestation: Total time spent providing and/or coordinating discharge services: Time spent: greater than 30 minutes Exam Constitutional Vital Signs, click to edit/add: Last Vital Signs Temp 97.8 F 01/24/25 07:58 Pulse 76 01/24/25 09:50 Resp 18 01/24/25 07:58 BP 112/76 01/24/25 07:58 Pulse Ox 99 01/24/25 09:50 O2 Del Method Room Air 01/24/25 07:58 O2 Flow Rate 2 01/23/25 19:40 FiO2 2 01/24/25 04:00 DS: Data Data Completed and Pending Labs on day of discharge: Labs from last 24 hours 01/24/25 01/23/25 01/23/25 05:23 13:15 12:13 WBC 2.6 L 5.2 RBC 3.42 L 3.64 L Hgb 10.7 L 11.6 L Hct 32.4 L 34.2 L MCV 94.7 94.0 MCH 31.3 31.9 MCHC 33.0 33.9 RDW 15.9 H 15.6 H Plt Count 169 186 MPV 10.8 10.7 Neut % (Auto) 40.4 L 75.2 H Lymph % (Auto) 48.2 19.8 L [place] % (Auto) 8.6 4.0 Eos % (Auto) 1.6 0.4 L Baso % (Auto) 1.2 0.4 Neut # (Auto) 1.0 L 3.9 Lymph # (Auto) 1.2 1.0 L [place] # (Auto) 0.2 L 0.2 L Eos # (Auto) 0.0 0.0 Baso # (Auto) 0.0 0.0 Abs Immat Gran (auto) 0.00 0.01 Imm/Tot Granulo (auto) 0.0 0.2 Sodium 142 141 Potassium 3.9 3.9 Chloride 110 H 109 H Carbon Dioxide 28.6 26.5 Anion Gap 7.3 9.4 BUN 3.0 L 6.0 L Creatinine 0.55 0.47 L Est GFR ( Amer) >60 >60 Est GFR (Non-Af Amer) >60 >60 BUN/Creatinine Ratio 5.5 12.8 Glucose 76 86 Calcium 7.8 L 7.9 L Phosphorus 2.4 L 1.7 L Magnesium 1.7 L 1.8 Total Bilirubin 0.2 0.2 AST 24 26 ALT 22 24 Alkaline Phosphatase 69 83 Total Protein 5.0 L 5.9 L Albumin 2.7 L 3.3 L Globulin 2.3 2.6 Albumin/Globulin Ratio 1.2 1.3 POC Glucose 85 Discharge Plan Discharge Disposition: Home Health Service Discharge Medications: New magnesium oxide 400 mg magnesium tablet 400 mg PO DAILY 10 Days Qty: 10 0RF Continued fentanyl 25 mcg/hr patch 72 hour 1 patch transdermal Q72H hydrocodone-acetaminophen 5-325 mg tablet 1 tab PO Q6H PRN (Reason: pain) trazodone 100 mg tablet 100 mg PO .qhs mirtazapine 45 mg tablet 45 mg PO BEDTIME aspirin 81 mg tablet,chewable 1 tab PO .qd Rx Instructions: with breakfast clopidogrel 75 mg tablet 75 mg PO .qd fentanyl 12 mcg/hr patch 72 hour 1 patch transdermal Q72H metoprolol succinate 25 mg tablet extended release 24 hr 25 mg PO .qd ranolazine 500 mg tablet extended release 12 hr 500 mg PO Q12H verapamil 40 mg tablet 40 mg PO Q8H methocarbamol 500 mg tablet 750 mg PO Q6H PRN (Reason: Muscle spasm) P-Pspa-Deohujq 250 mg tablet 1 tab PO DAILY Qty: 30 0RF sennosides-docusate sodium [Senexon-S] 8.6-50 mg tablet 1 tab-cap PO BID PRN (Reason: constipation) insulin lispro [Humalog Kali KwikPen U-100] 100 unit/mL insulin pen, half- unit 2 - 6 unit subcut ACHS Rx Instructions: 200-250 2 UNITS 250-300 4 UNITS > 300 6 UNITS hydroxyzine HCl 25 mg tablet 25 mg PO BID PRN (Reason: anxiety) levothyroxine 75 mcg tablet 75 mcg PO DAILY escitalopram oxalate 20 mg tablet 20 mg PO DAILY acetaminophen [Pain Relief (acetaminophen)] 325 mg tablet 650 mg PO Q4H PRN (Reason: pain) No Action (DME) [employer] Hunter 3 Plus Sensor Device MISCELLANEOUS Print Language: Micronesian Forms: Portal Instructions Follow Up Appointments: Dr. Evette Martinez. 01/25 @ 10:15am [phone]
--- NOTE | 2025-01-24 15:05 | PC.NURSE ---
central line flushed and green cap applied. dc instructions given to pt, verbalized understanding. pt dressed per self, belongings packed per pt. awaiting ride
--- NOTE | 2025-01-24 15:11 | PC.NURSE ---
ambulated to exit, discharged to private vehicle.
--- NOTE | 2025-01-25 10:25 | CM.NOTE ---
Marialuisa from [facility] called and requested discharge summary and labs to be faxed to them at fax # [phone]. I will fax the requested information to them now.
--- NOTE | 2025-01-25 16:14 | CM.DCFOLLOWU ---
1st attempt, no answer, 01/25
--- NOTE | 2025-01-26 14:12 | CM.DCFOLLOWU ---
Person spoke with: Abbey How are you feeling? Good How is your pain? Better Did you understand your discharge instructions? Yes Do you have any questions about your discharge instructions? No Were you given any prescriptions at discharge? Yes Were you able to get your prescriptions filled? Yes Do you understand how to take your medications as ordered? Yes Do you have any questions about your follow up appointment and do you plan to keep your follow up appointment? No questions. She already had her follow up appt. Is there anything else that you would like to discuss? No Questions/Comments/Concerns/Other:
== END 2025-01-24 15:12 | disposition home health service (06) ==
LOC: ER 12:53 → MS 14:18
PROVIDERS: Admitting Provider Student in an Organized Health Care Education/Training Program; Emergency Provider Emergency Medicine; PCP Family Medicine; Visit Provider Student in an Organized Health Care Education/Training Program
DX: E83.39 Other disorders of phosphorus metabolism (principal); R10.9 Unspecified abdominal pain; R11.2 Nausea with vomiting, unspecified; E87.6 Hypokalemia; D50.9 Iron deficiency anemia, unspecified; K90.9 Intestinal malabsorption, unspecified; E86.0 Dehydration; G89.29 Other chronic pain; M47.816 Spondylosis without myelopathy or radiculopathy, lumbar region; R64 Cachexia; R79.89 Other specified abnormal findings of blood chemistry; Z98.890 Other specified postprocedural states
CPT/HCPCS: 36415; 36592; 74018; 74176; 80053; 83735; 84100; 85025; 96361; 96365; 96366; 96367; 96368; 96374; 96375; 96376; 99285; G0378; J0650; J0780; J1171; J1200; J2270; J2405; J3475; J3490

== ENCOUNTER 2025-01-27 09:23 | Emergency (ER) | payer MEDICAID, SELFPAY ==
--- OUTSIDE RECORDS SUMMARY | 2024-10-31 04:45 | XMS_ITS ---
Author Organization The [facility] in [place] Address [address] [place] [address] Care Team Providers Care Soap Inspector Name Role Phone Brandyn Alas Primary Care Provider REASON FOR VISIT ER F/U Encounters Encounter Location Date Provider Diagnosis [facility] [address] [place] [address] 10/31/2024 Brandyn Alas Plan Of Treatment No Information Progress Notes * Abbey KONG MDOB:1990 (34 yo F)Acc No.[id number]:10/31/2024 UNLOCKED PROGRESS NOTE Progress Note Patient: Abbey OSBORNE :?Thomas Alas (TTC), MDDOB:1990???Age: 34 Y???Sex:FemaleDate:10/31/2024Phone:[phone]:[address] [place] [address] Subjective: * Chief Complaints: * 1 . ER F/U. * Medical History: Objective: * Vitals: Assessment: Plan: * Treatment: * * Electronic signature of Brandyn Alas MD, [id number] on 01/27/2025 at 10:06 AM EST Sign off status: PendingVisit Status:?N/S N/C (No Show/No Charge) * Provider: Du Alas MD (TTC) Date: 0 10/31/2024 Generated for Printing/Faxing/eTransmitting on:?01/27/2025 10:06 AM EST
--- OUTSIDE RECORDS SUMMARY | 2024-11-03 09:15 | XMS_ITS ---
Author Organization [facility] Address [address] [facility] [place] [address] Care Team Providers Care Night Time Nanny Name Role Phone Ashley Bryson Primary Care Provider [phone] Christina Dominguez Unavailable Unavailable REASON FOR VISIT DEBRIDEMENT Encounters Encounter Location Date Provider Diagnosis [facility] [address] [place] [address] 11/03/2024 Christina Dominguez Plan Of Treatment No Information Progress Notes * JUAN KONG MDOB:1990 (34 yo F)Acc No.[id number]:11/03/2024 Patient:?DILAN JUAN Flores :?Christina DominguezDOB:1990???Age:34 Y???Sex: FemaleDate:11/03/2024Phone:[phone]:[address] [place], [place] [phone]:Ashley Bryson Subjective: * Chief Complaints: * D EBRIDEMENT * Electronic signature of Christina Dominguez on 01/27/2025 at 10:06 AM ESTSign off status: Pending * Provider: Lesia Dominguez Date: 0 11/03/2024 Generated for Printing/Faxing/eTransmitting on:?01/27/2025 10:06 AM EST
--- OUTSIDE RECORDS SUMMARY | 2024-11-21 05:00 | XMS_ITS ---
Author Organization The [facility] in [place] Address [address] [place] [address] Care Team Providers Care Rn Paralegal Name Role Phone Brandyn Alas Primary Care Provider REASON FOR VISIT [facility] D/C- 10/3-R lower Quadrant Pain Encounters Encounter Location Date Provider Diagnosis [facility] [address] [place] [address] 11/21/2024 Brandyn Alas Plan Of Treatment No Information Progress Notes * Abbey KONG MDOB:1990 (34 yo F)Acc No.[id number]:11/21/2024 UNLOCKED PROGRESS NOTE Progress Note Patient: Abbey OSBORNE :?Thomas Alas (TTC), MDDOB:1990???Age: 34 Y???Sex:FemaleDate:11/21/2024Phone:[phone]:[address] [place] [phone] Subjective: * Chief Complaints: * 1 . [facility] D/C- 10/3-R lower Quadrant Pain. * Medical History: Objective: * Vitals: Assessment: Plan: * Treatment: * * Electronic signature of Brandyn Alas MD, [id number] on 01/27/2025 at 10:09 AM EST Sign off status: PendingVisit Status:?CANC (Cancelled) * Provider: Du Alas ([facility])MD Date: 1 Generated for Printing/Faxing/eTransmitting on:?01/27/2025 10:09 AM EST
--- OUTSIDE RECORDS SUMMARY | 2025-01-25 06:00 | XMS_ITS ---
Author Organization [facility] in [place] Address [address] [place] [address] Care Team Providers Care Study Specialist Name Role Phone Brandyn Alas Primary Care Provider Allergies Allergen (clinical drug ingredient) Drug/Non Drug Allergy documented on EMR Reaction Allergy Type Onset Date Status codeine Codeine vomiting Drug Allergy ActiveNon-steroidal anti-inflammatory agent (FN)NSAIDsGastric bypassDrug Allergy Active REASON FOR VISIT TB Hosp F/U, swallow study at [facility] tomorrow Medications Medication SIG (Take, Route, Frequency, Duration) Notes Start Date End Date Status traMADol HCl 50 MG 1 tablet as needed Orally qid; Duration: 30 days As needed PRN 01/01/2025 ActiveTopamax 100 MG1 tablet Orally BID; Duration: 30 days4Active Verapamil HCl 40 MG1 tablet Oral every 8 hours; Duration: 30 daysActivetraZODone HCl 100 MG1 tablet Orally zpviioi81/03/2024ActiveTest Strips - Test sugar Once daily; Duration: 90 days Dx: E11.9 5ActiveRanolazine ER 500 MGTAKE 1 TABLET BY MOUTH TWICE DAILY Oral; Duration: 30 DaysActiveSenna Plus 8.6-50 MG 1 tablet as needed Orally Twice a day; Duration: 30 days prn constipation 5ActiveRosuvastatin Calcium 40 MGTAKE 1 TABLET BY MOUTH AT BEDTIME Oral; Duration: 30 DaysActiveSucralfate 1 GM1 tablet on an empty stomach Orally TID5ActiveRemeron 30 MG1.5 tablet at bedtime Orally Once a day 06/23/2023ctivePrucalopride Succinate 2 MG1 tablet Orally Once a day; Duration: 30 daysActivePhospho-Linn 250 Neutral 155-852-130 MGOral; Duration: 30 Days ActiveOxygenUse 2Liters of continuous oxygen at HS per oxygen concentrator DX Nocturnal hypoxia d/t respiratorydepression; Duration: 365 days12/11/2024tive Promethazine HCl 25 MGTAKE 1 TABLET BY MOUTH 4 TIMES A DAY NEEDED; Duration: 7ActivePlavix 75 MG1 tablet Orally Once a day11/14/2024tiveMetoclopramide HCl 10 MG1 tablet before meals Orally achs; Duration: 30 08/07/2024tive Nitroglycerin 0.4 MG1 sl Sublingual Q 5 min as needed for chest pain11/29/2024 ActiveMetoprolol Succinate ER 25 MGOral; Duration: 30 DaysActiveOneTouch Ultra 2 w/DeviceUSE TO MONITOR BLOOD GLUCOSE LEVELS DAILY; Duration: 30ActiveOndansetron 4 MG 1-2 tablet on the tongue and allow to dissolve Orally q4h; Duration: 30 days As needed 09/29/2023ctiveMethocarbamol 500 MGTAKE 1.5 TABLETS BY MOUTH EVERY 6 HRS FOR 30 DAYS; Duration: 30ActiveMagnesium Oxide -Mg Supplement 400 (240 Mg) MGOral; Duration: 10 DaysActiveLevothyroxine Sodium 75 MCGTAKE 1 TABLET BY MOUTH EVERY MORNING ON AN EMPTY STOMACH FOR 30 DAYS; Duration: 90ActiveLiothyronine Sodium 5 MCG1 tablet on an empty stomach Orally Once a day; Duration: 30 06/23/2023 ActiveLexapro 20 MG1 tablet Orally Once a day06/23/2023ctiveFreeStyle Hunter 3 ReaderUse to monitor glucose levels multiple times daily DX Diabetes with hypoglycemic episodes; Duration: 365 days10/14/2023ctiveLancets 30G -Use 1 lancet E11.9 once daily; Duration: tiveHYDROcodone-Acetaminophen 5-325 MG 1 - 2 tablet as needed - max 6/day Orally every 6 hrs; Duration: 30 days K56.600 K56.0367001/01/2025tivehydrOXYzine HCl 50 MG1 tablet Orally Once a day at bedtime; Duration: 30 daysActiveHydrocortisone 10 MG1 tablet with food or milk Orally once a dayPRN- InjectionActiveFerrous Sulfate 325 (65 Fe) MG1 tablet Orally weekly; Duration: 30 days4ActivefentaNYL 12 MCG/HR 1 patch to skin Transdermal Q3d; Duration: 30 days with a 25mcg patch 5ActiveFreeStyle Hunter 3 Plus Sensor -USE TO MONITOR GLUCOSE CHANGE ONCE EVERY 15 DAYS; Duration: 30ActivefentaNYL 25 MCG/HR 1 patch to skin Transdermal Q 3 days K56.600 5ActiveCompazine 10 MG1 tablet as needed Orally Three times a day 4ActiveColchicine 0.6 MG1/2 tablet Oral every other day; Duration: 30 kusrMkswuuPdqdokxeuh-LIJP-Bzvisbfq 50-325-40 MGTAKE 1 TABLET BY MOUTH EVERY 4 HOURS NEEDED FOR HEADACHE; Duration: 4PRN5ActiveAspirin 81 MG1 tablet Orally Once a day5Active Social History Tobacco Use: Social History Observation Description Date Details (start date - stop date) Never Smoker NA - NA Tobacco Control (Standard) Question Answer Notes Tobacco use: Nonsmoker Problems Problem Type SNOMED Code ICD Code Onset Dates Problem Status W/U Status Risk Notes Problem Hypomagnesemia (771240362) Hypomagnesemia (E83.42) ActiveconfirmedProblemIntestinal obstruction (79370685)SBO (small bowel obstruction) (K56.609)Activeconfirmed Vital Signs Weight 186.4 lbs 01/25/2025 Height 66 in 01/25/2025 Blood pressure systolic 120 mm Hg 01/26/20 25 Blood pressure diastolic 80 mm Hg 025 BMI 30.08 kg/m2 01/25/2025 Encounters Encounter Location Date Provider Diagnosis [facility] [address] [place] [address] 01/25/2025 Brandyn Hoy Hypophosphatemia E83 .39 ; Hypomagnesemia E83.42 and SBO (small bowel obstruction) K56.609 Assessments Encounter Date Diagnosis (ICD Code) Assessment Notes Treatment Notes Treatment Clinical Notes Section Notes 01/25/2025 Hypophosphatemia (ICD-10 - E83.3 9) 01/25/2025Hypomagnesemia (ICD-10 - E83.42)01/25/2025SBO (small bowel obstruction) (ICD-10 - K56.609) Plan Of Treatment No Information Progress Notes * Abbey OKNG MDOB:1990 (34 yo F)Acc No.[id number]:01/25/2025 UNLOCKED PROGRESS NOTE Progress Note Patient: Abbey OSBORNE :?Thomas Alas ([facility]), MDDOB:1990???Age: 34 Y???Sex:FemaleDate:01/25/2025Phone:[phone]:[id number]Check In:10:51 AM ESTCheck Out:11:40 AM EST Subjective: * Chief Complaints: * 1 . [facility] F/U. 2. swallow study at [facility] tomorrow. * HPI: ???General:? Folow ufrom SBO - having been having some siius - testing tomorrow -? Phos low and admitted twice for that - but now has med for that an magnesium. ???Interim History:? Patient presents for high blood pressure check. Doing well on medication. Denies chest pain, palpitations, lightheadedness, or vision changes. * ROS: ???General/Constitutional:?Lightheadedness?denies.?Fever?denies.?Headache?denies.?Cardiovascular:?Chest pain?denies.?Palpitations?denies.?Respiratory:?Cough?denies.?Shortness of breath?denies.? * Medical History: I BS (irritable bowel syndrome), Anxiety, Asthma, GERD (gastroesophageal reflux disease), Migraine, Hypothyroidism. * Surgical History: G astric bypass 01/2022, DELIVERYx3 , APPENDECTOMY , CHOLECYSTECTOMY , MALS Surgery 02/2023, J Tube removal 2024, Port Replacement 2024, Hematoma Surgery 2024, Coronary Angiography, US LAD, iFR- [facility] Cardio 12/06/2024, untwisted bowel, repair of hole in intestine and removal of Adhesions 12/09. * Hospitalization/Major Diagno stic Procedure: s ee above- [facility], [facility] , [facility]- malnutrition, DM 06/2023, [facility]- Hypoglycemia 01/08, Hypoglycemia/ Bowel Obstruction 02/07, Sepsis 08/2024, Broken Port/ Bacteremia 09/2024, Heart Attack- [facility] 10/2024, Chest Pain 11/2024, [facility]- bowel obstruction 1024, Low potassium low phosphate 01/2025. * Family History: F ather: alive, thyroid disease, diagnosed with Hypertension. M other: alive, diagnosed with Diabetes, Hypertension. B rother(s): alive, thyroid disease, diagnosed with Hypertension. Sister(s): alive. S on(s): alive, Autisim. D aughter(s): alive, Autisim, attention deficit hyperactivity disorder. 2 brother(s) - healthy. 1 son(s) , 2 daughter(s) . . * Social History: ???Tobacco Use:?Tobacco Control (Standard)?Tobacco use:?Nonsmoker * Medications: T aking Aspirin 81 MG Tablet Chewable 1 tablet Orally Once a day , Taking Tqjlbvcmry-BMYS-Tfexptmn 50-325-40 MG Tablet TAKE 1 TABLET BY MOUTH EVERY 4 HOURS NEEDED FOR HEADACHE , Notes to Pharmacist: PRN, Taking Colchicine 0.6 MG Tablet 1/2 tablet Oral every other day , Taking Compazine 10 MG Tablet 1 tablet as needed Orally Three times a day , Taking fentaNYL 25 MCG/HR Patch 72 Hour 1 patch to skin Transdermal Q 3 days K56.600, Taking fentaNYL 12 MCG/HR Patch 72 Hour 1 patch to skin Transdermal Q3d with a 25mcg patch, Taking Ferrous Sulfate 325 (65 Fe) MG Tablet 1 tablet Orally weekly , Taking FreeStyle Hunter 3 Plus Sensor(Continuous Glucose Sensor) - Miscellaneous USE TO MONITOR GLUCOSE CHANGE ONCE EVERY 15 DAYS , Taking FreeStyle Hunter 3 [place] Use to monitor glucose levels multiple times daily DX Diabetes with hypoglycemic episodes , Taking HYDROcodone-Acetaminophen 5-325 MG Tablet 1 [...] stomach Orally Once a day , Taking Magnesium Oxide - Mg Supplement 400 (240 Mg) MG Tablet Oral , Taking Methocarbamol 500 MG Tablet TAKE 1.5 TABLETS BY MOUTH EVERY 6 HRS FOR 30 DAYS , Taking Metoclopramide HCl 10 MG Tablet 1 tablet before meals Orally achs , Taking Metoprolol Succinate ER 25 MG Tablet Extended Release 24 Hour Oral , Taking Nitroglycerin 0.4 MG Tablet Sublingual 1 sl Sublingual Q 5 min as needed for chest pain , Taking Ondansetron 4 MG Tablet Disintegrating 1-2 tablet on the tongue and allow to dissolve Orally q4h As needed, Taking qualifyor 2(Blood Glucose Monitoring Suppl) w/Device Kit USE TO MONITOR BLOOD GLUCOSE LEVELS DAILY , Taking Oxygen Use 2Liters of continuous oxygen at HS per oxygen concentrator DX Nocturnal hypoxia d/t respiratory depression , Taking Phospho-Linn 250 Neutral(K Phos [place]-Sod Phos Di & [place]) 155-852-130 MG Tablet Oral , Taking Plavix(Clopidogrel Bisulfate) 75 MG Tablet 1 tablet Orally Once a day , Taking Promethazine HCl 25 MG Tablet TAKE 1 TABLET BY MOUTH 4 TIMES A DAY NEEDED , Taking Prucalopride Succinate 2 MG Tablet 1 tablet Orally Once a day , Taking Ranolazine ER 500 MG Tablet Extended Release 12 Hour TAKE 1 TABLET BY MOUTH TWICE DAILY Oral , Taking Remeron(Mirtazapine) 30 MG Tablet 1.5 tablet at bedtime Orally Once a day , Taking Rosuvastatin Calcium 40 MG Tablet TAKE 1 TABLET BY MOUTH AT BEDTIME Oral , Taking Senna Plus(Sennosides-Docusate Sodium) 8.6-50 MG Tablet 1 tablet as needed Orally Twice a day prn constipation, Taking Sucralfate 1 GM Tablet 1 tablet [...] Tablet 1 tablet Orally bedtime , Taking Verapamil HCl 40 MG Tablet 1 tablet Oral every 8 hours , Discontinued Doxycycline Monohydrate 100 MG Tablet 1 tablet Orally bid , Medication List reviewed and reconciled with the patient * Allergies: C odeine: vomiting - Allergy, NSAIDs: Gastric bypass - Contraindication. Objective: * Vitals: W t:186.4lbs, Ht: 66 in, BP:120/80mm Hg, BMI:30.08Index, Ht-cm: 167.64 cm, Wt-k.55 kg. * Examination: ???General Examination: ?GENERAL APPEARANCE:? in no acute distress, well developed,well nourished.?LUNGS:? clear to auscultation bilaterally.?CARDIO:? regular rate and rhythm, S1, S2 normal, no murmurs.? Assessment: * Assessment: 1.?Hypophosphatemia - E83.39 (Primary)???2.?Hypomagnesemia - E83.42?&# 160;?3.?SBO (small bowel obstruction) - K56.609??? Plan: * Treatment: * Preventive Medicine: ??Screenings/Counseling:?BMI ACTION PLAN?Above Normal BMI Follow-up?Dietary management education, guidance, and counseling * * Electronic signature of Brandyn Aals MD, [id number] on 01/27/2025 at 10:09 AM EST Sign off status: PendingVisit Status:?CHK (Check Out) * Provider: Du Alas (TTC)MD Date: 1 03/28/2024 Generated for Printing/Faxing/eTransmitting on:?01/27/2025 10:09 AM EST History and Physical Notes * HPI (History of Present Illness) CategorySub-CategoryDetailNotesCategory NotesGeneral Folow ufrom SBO - having been having some siius - testing tomorrow - Phos low and admitted twice for that - but now has med for that an magnesium Examination CategorySub-CategoryDetailNotesCategory NotesGeneral ExaminationGENERAL APPEARANCE:in no acute distress, well developed, well nourishedCARDIO:regular rate and rhythm, S1, S2 normal, no murmursLUNGS:clear to auscultation bilaterally
--- OUTSIDE RECORDS SUMMARY | 2025-01-26 13:11 | XMS_ITS | Encounter Summary ---
Author Organization [facility] Address [address] [place] [address] Care Team Providers Care Interlocking Machine Operator Name Role Phone Thomas Alas MD Primary Care Provider [phone] Vicky Cardenas RN Unavailable Unavailable Encounter Details DateTypeDepartmentCare Team (Latest Contact Info)Kerthcroilc22/12/2025 1:11 PM EST - 01/26/2025 11:59 PM ESTHospital Encounter [facility] X-Ray Imaging [address] [place] [id number] History of Isabel-en-Y gastric bypass Discharge Disposition: Home or Self Care () Social History Tobacco UseTypesPacks/DayYears UsedDateSmoking Tobacco: NeverSmokeless Tobacco: NeverAlcohol UseStandard Drinks/WeekCommentsNot Currently0 (1 standard drink = 0.6 oz pure alcohol)[facility] UtilitiesAnswerDate RecordedIn the past 12 months has the [employer], Food52, oil, or water [employer] threatened to shut off services in your home?Yes12/17/2024Overall Financial Resource Strain (CARDIA)AnswerDate Recorded How hard is it for you to pay for the very basics like food, housing, medical care, and heating?Not hard at all12/17/2024PHQ-2AnswerDate RecordedPatient Health Questionnaire-2 Lfxtp34702/28/2024Humiliation, Afraid, Rape, and Kick questionnaireAnswerDate RecordedWithin the [...] homeless or living in a longterm (including now)?No12/17/2024Hunger Vital SignAnswerDate RecordedWithin the past 12 months, you worried that your food would run out before you got the money to buymore.Never true12/17/2024Ran Out of Food in the Last YearNot on file 12/17/2024CommentsNoSex and Gender InformationValueDate RecordedSex Assigned at ZeduiGexega57/03/2025 3:45 PM EDTLegal FuaYbgtug08/30/2022 12:07 AM EDTGender BtualryiPywihe80/03/2025 3:45 PM EDTSexual OrientationHeterosexual or Scovkfjf77/03/2025 3:45 PM EDTdocumented as of this encounter Medications at Time [...] the skin every 3rd (third) day. HYDROcodone-acetaminophen ([place]) 5-325 mg tablet Take 2 tablets by [...] 90 tablet documented as of this encounter Plan of Treatment DateTypeDepartmentCare Team (Latest Contact Info)Mznymszgvdv30/17/2025 11:00 AM ESTOffice Visit [facility] [address] [place] [address] Wali Collins MD [address] [place] [address] 06/28/2025 1:15 PM EDTFollow-Up [facility] [address] [place] [address] Donnie Cesar MD [address] [place] [address] documented as of this encounter Procedures Procedure NamePriorityDate/TimeAssociated DiagnosisCommentsFL UPPER GI WITH KUB Ulpvhdf0601/26/2025 2:16 PM EST History of Isabel-en-Y gastric bypass documented in this encounter Results * FL upper GI w KUB (01/26/2025 2:16 PM EST)Anatomical RegionLateralityModality Radio FluoroscopySpecimen (Source)Anatomical Location / LateralityCollection Method / VolumeCollection TimeReceived Time01/26/2025 2:39 PM EST Impressions 01/26/2025 2:52 PM EST * Postsurgical changes consistent with Isabel-en-Y gastric bypass without persistent filling defect, evidence of contrast leak or stricture. No hiatal hernia or significant gastroesophageal reflux. Approved by:Modesto Lovell01/26/2025 2:44 PM. Janak Saunders,have reviewed the image(s) and agree with the findings in this report. Electronically signed: Janak Limon. Narrative 01/26/2025 2:52 PM EST FL UPPER GI WITH KUB HISTORY: ??Isabel-en-Y gastric bypass, dysphasia, nausea, epigastric pain COMPARISON: ??None TECHNIQUE: Single contrast esophagram and upper GI examination was performed using barium sulfate. FINDINGS: Fluoroscopy time: 39 seconds Dose: No recorded due to technical issues with fluoroscopy machine. Runs: 11 The esophagus has a normal course and caliber. No persistent filling defects identified of the esophagus. No hiatal hernia. No significant gastroesophageal reflux identified during fluoroscopy. Postsurgical changes consistent with Isabel-en-Y gastric bypass. No persistent filling defects of the gastric remnant. No evidence of stricture at the gastrojejunal anastomoses. No persistent filling defects identified within the proximal small bowel. Procedure Note Janak Limon MD - 01/26/2025 FL UPPER GI WITH KUB HISTORY: Isabel-en-Y gastric bypass, dysphasia, nausea, epigastric pain COMPARISON: None TECHNIQUE: Single contrast esophagram and upper GI examination wasperformed using barium sulfate. FINDINGS: Fluoroscopy time: 39 seconds Dose: No recorded due to technical issues with fluoroscopy machine. Runs: 11 The esophagus has a normal course and caliber. No persistent fillingdefects identified of the esophagus. No hiatal hernia. No significantgastroesophageal reflux identified during fluoroscopy. Postsurgical changes consistent with Isabel-en-Y gastric bypass. Nopersistent filling defects of the gastric remnant. No evidence of stricture at the gastrojejunal anastomoses. No persistent filling defects identified withinthe proximal small bowel. IMPRESSION: *Postsurgical changes consistent with Isabel-en-Y gastric bypass without persistent filling defect, evidence of contrast leak or stricture. Nohiatal hernia or significant gastroesophageal reflux. Approved by:Modesto Lovell01/26/2025 2:44 PM. Janak Saunders,have reviewed the image(s) and agree with the findings inthis report. Electronically signed: Janak Limon. Authorizing ProviderResult TypeResult StatusJustin Cesar MDIMG FLUOROSCOPY PROCEDURESFinal Result documented in this encounter Visit Diagnoses Diagnosis History of Isabel-en-Y gastric bypass documented in this encounter Administered Medications Medication OrderMAR ActionAction DateDoseRateSite barium sulfate (E-Z-Paque) 96 % (w/w) suspension 75 mL 75 mL, oral, Once in imaging, Starting on Wed01/26/25 at 1417, For 1 dose Given01/26/2025 2:20 PM EST75 mLdocumented in this encounter Care Teams Team MemberRelationshipSpecialtyStart DateEnd Thomas Alas MD [address] [facility] [place] [address] PCP - GeneralFamily Medicine08/17/24 Vicky Cardenas RN Case ManagerCase Rjwpjchryf80/13/25documented as of this encounter
[2025-01-27] VITALS (16 sets, daily range): BP systolic 115–130; BP diastolic 66–81; PULSE 80–90; TEMP 36.5; O2SAT 97–100; BMI 29.1
--- NOTE | 2025-01-27 09:44 | XR_ITS ---
[address] [address] Patient Name: JUAN KONG MRN: [id number] date: 1990 Sex: F Assigned Patient Location: ER Current Patient Location: ED.MAIN Accession/Order Number: [id number] Exam Date: 01/27/2025 10:00 Report Date: 01/27/2025 10:42 At the request of: LESLIE TERRAZAS MD Procedure: XR chest 1V XR chest 1V 01/27/2025 10:04 AM SIGNS AND SYMPTOMS: Chest pain radiating to left arm PROTOCOL: Frontal radiograph of the chest COMPARISON: 12/17/2024 FINDINGS: The trachea is midline. There is a right IJ line which is in satisfactory position. The heart and mediastinal structures are within normal limits. The lung parenchyma is clear. The bony thorax is intact. XR/XR chest 1V IMPRESSION: No acute cardiopulmonary pathology. Impression dictated by: Roddy Hutchinson M.D. 01/27/2025 10:42 AM Dictation Location: [place] [address] Electronically authenticated by: [id number] Y Date: 01/27/2025 10:42
--- NOTE | 2025-01-27 09:44 | ECG_ITS ---
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 Measurements Intervals [place] Rate: 84 P: 78 SC: 146 QRS: 79 QRSD: 80 T: 43 QT: 386 QTc: 426 Interpretive Statements 1100 Sinus rhythm 9110 normal ECG Compared to ECG 01/22/2025 23:13:32 No significant changes Electronically Signed On 01-28-2025 10:18:19 EST by JAMES HODGES M.D.
--- NOTE | 2025-01-27 09:44 | ED.GENADUL1 ---
HPI HPI - General Adult General Chief complaint: Chest Pain Stated complaint: CHEST PAIN Time Seen by Provider: 01/27/25 09:25 Source: patient Mode of arrival: Wheelchair Limitations: no limitations History of Present Illness HPI narrative: 34-year-old female presented for 20 minutes of chest pain. It is just to the left of midline and she was receiving an IV infusion of fluids when this started. No trauma or fever. She is worried because she had a coronary dissection in October. Related Data Home Medications ?Medication ?Instructions ?Recorded ?Confirmed hydroxyzine HCl 25 mg tablet 25 mg PO BID PRN anxiety 09/17/22 01/23/25 escitalopram oxalate 20 mg tablet 20 mg PO DAILY 06/15/23 01/23/25 levothyroxine 75 mcg tablet 75 mcg PO DAILY 06/15/23 01/23/25 acetaminophen 325 mg tablet (Pain 650 mg PO Q4H PRN pain 06/24/23 01/23/25 Relief (acetaminophen)) blood-glucose sensor (FreeStyle 03/29/24 01/23/25 Hunter 3 Plus Sensor device) fentanyl 25 mcg/hr transdermal 1 patch transdermal Q72H 03/29/24 01/23/25 patch hydrocodone 5 mg-acetaminophen 325 1 tab PO Q6H PRN pain 03/29/24 01/23/25 mg tablet trazodone 100 mg tablet 100 mg PO .qhs 03/29/24 01/23/25 mirtazapine 45 mg tablet 45 mg PO BEDTIME 08/16/24 01/23/25 aspirin 81 mg chewable tablet 1 tab PO .qd 11/19/24 01/23/25 clopidogrel 75 mg tablet 75 mg PO .qd 11/19/24 01/23/25 fentanyl 12 mcg/hr transdermal 1 patch transdermal Q72H 11/19/24 01/23/25 patch methocarbamol 500 mg tablet 750 mg PO Q6H PRN Muscle spasm 11/19/24 01/23/25 metoprolol succinate 25 mg 25 mg PO .qd 11/19/24 01/23/25 tablet,extended release 24 hr ranolazine 500 mg tablet,extended 500 mg PO Q12H 11/19/24 01/23/25 release,12 hr verapamil 40 mg tablet 40 mg PO Q8H 11/19/24 01/23/25 insulin lispro 100 unit/mL 2 - 6 unit subcut ACHS 01/23/25 01/23/25 subcutaneous half-unit pen (Za Palmer (U-100)) sennosides 8.6 mg-docusate sodium 1 tab-cap PO BID PRN constipation 01/23/25 01/23/25 50 mg tablet (Senexon-S) Previous Rx's ?Medication ?Instructions ?Recorded sodium di- and 1 tab PO DAILY #30 tabs 01/19/25 monophosphate-potassium phos monobasic 250 mg tablet (O-Nonf-Keczlso) magnesium oxide 400 mg PO DAILY 10 days #10 tabs 01/24/25 Allergies Allergy/AdvReac Type Severity Reaction Status Date / Time adhesive Allergy Rash Verified 01/23/25 11:14 NSAIDS (Non-Steroidal Allergy intolerance Verified 01/23/25 11:14 Anti-Inflamma codeine AdvReac Vomiting Verified 01/23/25 11:14 Opioid HPI Opioid Management Most Recent Opioid Data: Last Pain Scale 7 01/24/25, 11:00 Last Pain Assessment 01/24/25, 15:00 Last ED Pain Assessment 01/23/25, 13:00 Last MAR Pain Assessment 01/24/25, 10:56 Last ORT Total Score 0 01/23/25, 14:25 Last ORT Risk Category Low Risk 01/23/25, 14:25 Ur Phencyclidine Scrn, (NEGATIVE) Negative 08/28/24, 14:10 Review of Systems ROS Narrative A ten point review of systems is negative except as noted above. [facility] Medical History (Updated 01/27/25 @ 11:34 by Reji Damon MD) Coronary artery dissection ?I25.42 - Coronary artery dissection (ICD-10) Hypoglycemia ?E16.2 - Hypoglycemia, unspecified (ICD-10) Gastroenteritis ?K52.9 - Noninfective gastroenteritis and colitis, unspecified (ICD-10) Feeding by G-tube ?Z93.1 - Gastrostomy status (ICD-10) Abdominal pain ?R10.9 - Unspecified abdominal pain (ICD-10) Small bowel intussusception ?K56.1 - Intussusception (ICD-10) Nausea and vomiting ?R11.2 - Nausea with vomiting, unspecified (ICD-10) Flank pain ?R10.9 - Unspecified abdominal pain (ICD-10) Abdominal pain ?R10.9 - Unspecified abdominal pain (ICD-10) Acute abdomen ?R10.0 - Acute abdomen (ICD-10) Intractable nausea and vomiting ?R11.2 - Nausea with vomiting, unspecified (ICD-10) Intractable abdominal pain ?R10.9 - Unspecified abdominal pain (ICD-10) Depression ?F32.A - Depression, unspecified (ICD-10) Asthma ?J45.909 - Unspecified asthma, uncomplicated (ICD-10) Dyspareunia Pelvic pain ?R10.2 - Pelvic and perineal pain (ICD-10) Ovarian cyst ?N83.209 - Unspecified ovarian cyst, unspecified side (ICD-10) PONV (postoperative nausea and vomiting) ?R11.2 - Nausea with vomiting, unspecified (ICD-10) ?Z98.890 - Other specified postprocedural states (ICD-10) PCOS (polycystic ovarian syndrome) ?E28.2 - Polycystic ovarian syndrome (ICD-10) Hypothyroidism (acquired) ?E03.9 - Hypothyroidism, unspecified (ICD-10) Anxiety ?F41.9 - Anxiety disorder, unspecified (ICD-10) GERD (gastroesophageal reflux disease) ?K21.9 - Gastro-esophageal reflux disease without esophagitis (ICD-10) Sleep apnea ?G47.30 - Sleep apnea, unspecified (ICD-10) Anemia ?D64.9 - Anemia, unspecified (ICD-10) Fibromyalgia ?M79.7 - Fibromyalgia (ICD-10) Syncope (07/07/13) ?R55 - Syncope and collapse (ICD-10) Shingles ?B02.9 - Zoster without complications (ICD-10) Headache ?R51.9 - Headache, unspecified (ICD-10) Migraine ?G43.909 - Migraine, unspecified, not intractable, without status migrainosus (ICD-10) Mechanical ileus (01/31/20) ?K56.609 - Unspecified intestinal obstruction, unspecified as to partial versus complete obstruction (ICD-10) COVID-19 (~02/2020) ?U07.1 - COVID-19 (ICD-10) Kidney stones ?N20.0 - Calculus of kidney (ICD-10) Surgical History (Updated 01/23/25 @ 14:08 by Rosa Day) Gastric bypass status for obesity ?Z98.84 - Bariatric surgery status (ICD-10) S/P percutaneous endoscopic gastrostomy (PEG) tube placement ?Z93.1 - Gastrostomy status (ICD-10) 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 - Celiac artery compression syndrome (ICD-10) H/O shoulder surgery (2022) ?Z98.890 - Other specified postprocedural states (ICD-10) History of hip surgery ?Z98.890 - Other specified postprocedural states (ICD-10) S/P right knee arthroscopy ?Z98.890 - Other specified postprocedural states (ICD-10) S/P left knee arthroscopy ?Z98.890 - Other specified postprocedural states (ICD-10) Hx of tonsillectomy ?Z90.89 - Acquired absence of other organs (ICD-10) History of thoracic surgery (~2021) ?Z98.890 - Other specified postprocedural states (ICD-10) History of esophagogastroduodenoscopy (EGD) (10/04/13) ?Z98.890 - Other specified postprocedural states (ICD-10) History of cholecystectomy (10/06/13) ?Z90.49 - Acquired absence of other specified parts of digestive tract (ICD-10) Delivery by section (~2016) Delivery by section (01/17/18) H/O colonoscopy (~2018) ?Z98.890 - Other specified postprocedural states (ICD-10) S/P right knee arthroscopy (07/21/18) ?Z98.890 - Other specified postprocedural states (ICD-10) Delivery by section (06/19/19) History of appendectomy (09/25/19) ?Z90.49 - Acquired absence of other specified parts of digestive tract (ICD-10) H/O laparoscopy (11/10/19) ?Z98.890 - Other specified postprocedural states (ICD-10) History of liver biopsy (~04/2020) ?Z98.890 - Other specified postprocedural states (ICD-10) H/O laparoscopy (07/18/20) ?Z98.890 - Other specified postprocedural states (ICD-10) H/O arthroscopy of right knee (08/07/20) ?Z98.890 - Other specified postprocedural states (ICD-10) S/P laparoscopic sleeve gastrectomy (09/03/20) ?Z98.84 - Bariatric surgery status (ICD-10) H/O: hysterectomy (11/12/20) ?Z90.710 - Acquired absence of both cervix and uterus (ICD-10) History of hernia repair (03/20/21) ?Z98.890 - Other specified postprocedural states (ICD-10) ?Z87.19 - Personal history of other diseases of the digestive system (ICD-10) Family History Other Family history of cancer Family history of diabetes mellitus Family history of hypertension Family history of myocardial infarction PONV (postoperative nausea and vomiting) Social History Within the past year, how often did you have a drink containing alcohol: never Score interpretation: A score less than 3 is consistent with normal alcohol consumption. Smoking status: Never smoker Non-prescribed substance use: denies use Previous occupational history: disabled Known occupational exposures/hazards details: disabled Highest level of school completed/degree received: Master's degree Are you now , , , , never or living with a partner: In a typical week, how many times do you talk on the telephone with family, friends, or neighbors: 3 or more times per week How often do you get together with friends or relatives: twice per week How often do you attend holiness or presybeterian services: 4 or more times per year Do you belong to any clubs or organizations such as holiness groups unions, fraternal or athletic groups, or school groups: no Total score: 3 Score interpretation: A score of greater than or equal to 2 indicates the lowest level of social isolation. Little interest or pleasure in doing things: not at all Feeling down, depressed, or hopeless: not at all Feel stressed/tense/nervous/anxious/difficulty sleeping: to some extent Do you think of yourself as: straight/heterosexual Gender Identity: female Exam Narrative Exam Narrative: Nurses note and vital signs reviewed General:The patient appears well and in no apparent distress.Patient is resting comfortably on cart. Skin:Warm, dry, no pallor noted.There is no rash noted. Head:Normocephalic, atraumatic Eye: Normal conjunctiva, no drainage Ears, Nose, Mouth, and Throat: oral mucosa is moist. Nares patent. Cardiovascular:Regular Rate and Rhythm Respiratory:Patient is in no distress, no accessory muscle use, lungs are clear to auscultation, no wheezing, rales or rhonchi Back:non-tender GI: Soft and nontender Musculoskeletal: The patient has no evidence of calf tenderness, no pitting edema, symmetrical pulses noted bilaterally Neurological:A&O, normal speech Psychiatric:Cooperative Constitutional Vital Signs, click to edit/add: Last Vital Signs Temp 97.7 F 01/27/25 09:36 Pulse 89 01/27/25 09:36 Resp 18 01/27/25 09:36 BP 130/76 01/27/25 09:36 Pulse Ox 97 01/27/25 09:36 O2 Del Method Room Air 01/27/25 09:36 Course Vital Signs Vital signs: Vital Signs Temperature 97.7 F 01/27/25 09:36 Pulse Rate 89 01/27/25 09:36 Respiratory Rate 18 01/27/25 09:36 Blood Pressure 130/76 01/27/25 09:36 Pulse Oximetry 97 01/27/25 09:36 Oxygen Delivery Method Room Air 01/27/25 09:36 Temperature 97.7 F 01/27/25 09:36 Pulse Rate 89 01/27/25 09:36 Respiratory Rate 18 01/27/25 09:36 Blood Pressure 130/76 01/27/25 09:36 Pulse Oximetry 97 01/27/25 09:36 Oxygen Delivery Method Room Air 01/27/25 09:36 Medical Decision Making MDM Narrative Medical decision making narrative: Her workup including 2 sets of troponin levels negative. She is able to be discharged home. No evidence of acute coronary syndrome. Differential Diagnosis Differential Diagnosis: GA, NSTEMI, chest wall pain, anxiety Lab Data Lab results reviewed: Yes I reviewed the patient's lab results Labs: Lab Results 01/27/25 01/27/25 Range/Units 09:54 11:03 WBC 2.9 L (4.0-11.0) 10^3/uL RBC 3.72 L (4.20-5.40) 10^6/uL Hgb 11.9 L (12.0-16.0) g/dL Hct 35.0 L (36.0-48.0) % MCV 94.1 (81.0-99.0) fL MCH 32.0 (26.7-34.0) pg MCHC 34.0 (29.9-35.2) g/dL RDW 15.3 H (11.0-15.0) % Plt Count 190 (150-450) 10^3/uL MPV 10.4 (9.5-13.5) fL Neut % (Auto) 56.7 (43.0-75.0) % Lymph % (Auto) 33.0 (20.5-60.0) % [place] % (Auto) 8.2 (1.7-12.0) % Eos % (Auto) 1.4 (0.9-7.0) % Baso % (Auto) 0.7 (0.2-2.0) % Neut # (Auto) 1.7 (1.4-6.5) 10^3/uL Lymph # (Auto) 1.0 L (1.2-3.8) 10^3/uL [place] # (Auto) 0.2 L (0.3-0.8) 10^3/uL Eos # (Auto) 0.0 (0.0-0.7) 10^3/uL Baso # (Auto) 0.0 (0.0-0.1) 10^3/uL Abs Immat Gran (auto) 0.00 (0.00-0.03) 10^3/uL Imm/Tot Granulo (auto) 0.0 (0.0-0.5) % Sodium 139 (136-145) mmol/L Potassium 4.5 (3.5-5.1) mmol/L Chloride 104 (98-107) mmol/L Carbon Dioxide 29.1 (21.0-32.0) mmol/L Anion Gap 10.4 BUN 5.0 L (7.0-18.0) mg/dL Creatinine 0.63 (0.55-1.02) mg/dL Est GFR ( Amer) >60 (>=60 mL/min/1.73m^2) Est GFR (Non-Af Amer) >60 (>=60 mL/min/1.73m^2) BUN/Creatinine Ratio 7.9 Glucose 80 (74-106) mg/dL Calcium 8.1 L (8.5-10.1) mg/dL Troponin I High Sens <4.0 L 4.2 (4.0-51.3) pg/mL Imaging Data Chest x-ray: Radiologist's impression: ITS Impressions Chest X-Ray 01/27/25 09:44 IMPRESSION: No acute cardiopulmonary pathology. Impression dictated by: Roddy Hutchinson M.D. 01/27/2025 10:42 AM Dictation Location: [place] [address] Electronically authenticated by: [id number] Y Date: 01/27/2025 10:42 ECG Data Attestation: I personally reviewed and interpreted this ECG as follows: (EKG on my interpretation shows normal sinus rhythm with rate of 84 no acute change) Discharge Plan Discharge Chief Complaint: Chest Pain Clinical Impression: Chest pain Qualifiers: Chest pain type: other chest pain Qualified Code(s): R07.89 - Other chest pain Patient Disposition: Home, Self-Care Time of Disposition Decision: 11:34 Condition: Good Mode of Transportation: Private Vehicle Prescriptions / Home Meds: No Action fentanyl 25 mcg/hr patch 72 hour 1 patch transdermal Q72H (DME) FreeStyle Hunter 3 Plus Sensor Device MISCELLANEOUS hydrocodone-acetaminophen 5-325 mg tablet 1 tab PO Q6H PRN (Reason: pain) trazodone 100 mg tablet 100 mg PO .qhs mirtazapine 45 mg tablet 45 mg PO BEDTIME aspirin 81 mg tablet,chewable 1 tab PO .qd Rx Instructions: with breakfast clopidogrel 75 mg tablet 75 mg PO .qd fentanyl 12 mcg/hr patch 72 hour 1 patch transdermal Q72H metoprolol succinate 25 mg tablet extended release 24 hr 25 mg PO .qd ranolazine 500 mg tablet extended release 12 hr 500 mg PO Q12H verapamil 40 mg tablet 40 mg PO Q8H methocarbamol 500 mg tablet 750 mg PO Q6H PRN (Reason: Muscle spasm) J-Tntn-Tpcetbo 250 mg tablet 1 tab PO DAILY Qty: 30 0RF sennosides-docusate sodium [Senexon-S] 8.6-50 mg tablet 1 tab-cap PO BID PRN (Reason: constipation) insulin lispro [Humalog Kali KwikPen U-100] 100 unit/mL insulin pen, half-unit 2 - 6 unit subcut ACHS Rx Instructions: 200-250 2 UNITS 250-300 4 UNITS > 300 6 UNITS magnesium oxide 400 mg magnesium tablet 400 mg PO DAILY 10 Days Qty: 10 0RF hydroxyzine HCl 25 mg tablet 25 mg PO BID PRN (Reason: anxiety) levothyroxine 75 mcg tablet 75 mcg PO DAILY escitalopram oxalate 20 mg tablet 20 mg PO DAILY acetaminophen [Pain Relief (acetaminophen)] 325 mg tablet 650 mg PO Q4H PRN (Reason: pain) Print Language: Japanese Instructions: Chest Pain (ED) Referrals: Thomas Alas MD [Primary Care Provider, Family Practice] - 1 week
[2025-01-27 10:00] LABS: Hematocrit 35.0 % (36.0-48.0); Hemoglobin 11.9 g/dL (12.0-16.0); Immature Granulocytes Abs Auto 0.00 10^3/uL (0.00-0.03); Immature Granulocytes Pct Auto 0.0 % (0.0-0.5); Lymphocytes Absolute Auto 1.0 10^3/uL (1.2-3.8); Mean Corpuscular HGB Conc 34.0 g/dL (29.9-35.2); Mean Corpuscular Hemoglobin 32.0 pg (26.7-34.0); Mean Corpuscular Volume 94.1 fL (81.0-99.0); Platelet Count 190 10^3/uL (150-450); Red Blood Count 3.72 10^6/uL (4.20-5.40); White Blood Count 2.9 10^3/uL (4.0-11.0)
--- NOTE | 2025-01-27 10:01 | PC.NURSE ---
Midline placed in september for TPN. pt states midline is saline locked.
--- NOTE | 2025-01-27 10:04 | PC.NURSE ---
Carroll placed in september for TPN.
--- OUTSIDE RECORDS SUMMARY | 2025-01-27 10:06 | XMS_ITS | Clinical Summary ---
Author Organization [facility] tem Address [id number] [place] [address] Care Team Providers Care Food And Beverage Associate Name Role Phone No Pcp, No Pcp Primary Care Provider Unavailabl e Allergies Active AllergyReactionsCriticalityNoted RmejMfqsusvfWjmgrnn52/18/2018 Medications MedicationSigDispense QuantityRefillsLast FilledStart DateEnd DateStatus levothyroxine [...] breakfast.Active lancets (ONETOUCH DELICA LANCETS) 33 [place] [facility] [place] Indications:Abnormal glucose tolerance affecting , antepartumOne touch [...] Problems ProblemNoted DateDiagnosed DateHypothyroidism affecting in second tgnnbhyrz39/08/2018 Family History Medical HistoryRelationNameCommentsThyroid diseaseFatherDiabetesMaternal GrandfatherHypertensionMaternal GrandfatherThyroid diseaseMaternal Grandfather HypertensionMaternal GrandmotherDiabetesMotherHypertensionMotherHypertension Paternal GrandfatherDiabetesPaternal GrandmotherHypertensionPaternal Grandmother Thyroid diseasePaternal GrandmotherRelationNameStatusCommentsFatherMaternal GrandfatherMaternal GrandmotherDeceasedMotherPaternal GrandfatherPaternal GrandmotherDeceased Social History Tobacco UseTypesPacks/DayYears UsedDateSmoking Tobacco: NeverSmokeless Tobacco: NeverAlcohol UseStandard Drinks/WeekCommentsNo0 (1 standard drink = 0.6 oz pure alcohol)ChildcareAnswerDate CdjtrgkqXihcwszwoFnvmzpv18/09/2019EmploymentAnswer Date CgoqxlmxZtkdrqqljlByvnjrs24/09/2019Purpose - LifeAnswerDate RecordedPurpose and direction in bhavXxxjdsy08/11/2021CommentsNoSex and Gender InformationValueDate RecordedSex Assigned at BirthNot on fileLegal SexFemale 09/20/2014 11:41 AM EDTGender IdentityNot on fileSexual OrientationNot on file Last Filed Vital Signs Vital SignReadingTime TakenCommentsBlood Ujfungmc373/71003/15/2019 9:28 AM EST Tshli274703/15/2019 9:28 AM ESTTemperature--Respiratory Rate--Oxygen Saturation-- Inhaled Oxygen Concentration--Xgigxm028 kg (262 lb 5.6 oz)03/15/2019 9:28 AM EST Scaftt261.2 cm (5' 7 )01/16/2019 8:31 AM ESTBody Mass Index41.0901/16/2019 8:31 AM EST Plan of Treatment Health MaintenanceDue DateLast DoneCommentsDepression Oqpfwtmnu63/17/2002Tobacco Fouvybmlf62/17/2002Adult BMI Xdxztisbz43/17/2008DTaP,Tdap and Td Vaccines (1 - Tdap)2008Pap Smear2010Influenza Uemobig5910/16/2024 Medical Devices Not on file Insurance Care Teams Team MemberRelationshipSpecialtyStart DateEnd Date No Pcp, No Pcp [facility] [place] [address] [facility]
--- OUTSIDE RECORDS SUMMARY | 2025-01-27 10:06 | XMS_ITS | Patient Health Record ---
Author Organization [facility] in [place] Address [address] [place] [address] Care Team Providers Care Cruise Staff Member Name Role Phone Brandyn Alas Primary Care Provider [phone] Allergies Allergen (clinical drug ingredient) Drug/Non Drug Allergy documented on EMR Reaction Allergy Type Onset Date Status codeine Codeine vomiting Drug Allergy ActiveNon-steroidal anti-inflammatory agent (FN)NSAIDsGastric bypassDrug Allergy Active Results Component Value Reference Range Notes IRON AND TIBC Reviewed date:01/31/2024 02:12:13 PM Interpretation: Performing Lab: Notes/Report: [place] [employer] [place] [facility] , Iron 101.0 50.0-170.0 ug/dL Total Iron Binding Wtprccof690.0250.0-450.0 ug/dLPercent Iron Ovfcjhuifa00.3 Performing Lab:see note - [facility] LBMAGNESIUM Reviewed date:02/16/2024 03:19:17 PM Interpretation: Performing Lab: Notes/Report: HOME HEALTH NURSE [facility] ,Magnesium1.81.8-2.4 mg/dLPerforming Lab:see note - [facility] LB PHOSPHORUS Reviewed date:02/16/2024 03:19:17 PM Interpretation: Performing Lab: Notes/Report: HOME HEALTH NURSE [facility] ,Phosphorus3.32.6-4.7 mg/dLPerforming Lab:see note - [facility] LB PROF 14(COMP METB) Reviewed date:02/16/2024 03:19:17 PM Interpretation: Performing Lab: Notes/Report: HOME HEALTH NURSE [facility] ,Ftvnxf765544-483 mmol/LPotassium3.83.5-5.1 mmol/COswfnubf63695-262 mmol/LCarbon Gdbrqhu44.521.0-32.0 mmol/LAnion Gap11.9Zfrjhbr2833-319 mg/dLBlood Urea Nitrogen 7.07.0-18.0 mg/dLCreatinine0.900.55-1.02 mg/dLEstimated GFR ( Shelby>60 >=60 mL/min/1.73m 2Estimated GFR (Non- Caroline>60>=60 mL/min/1.73m 2BUN Creatinine Ratio7.8Duvrzty5.48.5-10.1 mg/dLBilirubin Total0.30.2-1.0 mg/dL Aspartate Amino Xhgvhqqedfc4905-24 U/LAlanine Owmqldrsbwltsoau2628-02 U/L Alkaline Fadpawxvfie9985-883 U/LTotal Protein6.66.4-8.2 g/dLAlbumin Level3.63.4- 5.0 g/dLGlobulin3.0Albumin Globulin Ratio1.2Performing Lab:see note - [facility] LBPROF CHEM 8 (BAS METB) Reviewed date:03/30/2024 07:56:16 PM Interpretation: Performing Lab: Notes/Report: [facility] ,Ndgiqm557113-491 mmol/LPotassium4.03.5-5.1 mmol/WTrbrrunb95979-555 mmol/LCarbon Werjofx23.621.0-32.0 mmol/LAnion Gap16.5Pvedfhu67144-734 mg/dLBlood Urea Nitrogen8.07.0-18.0 mg/dLCreatinine0.980.55-1.02 mg/dLEstimated GFR ( Shelby>60>=60 mL/min/1.73m 2Estimated GFR (Non- Caroline>60>=60 mL/min/1.73m 2BUN Creatinine Ratio8.6Afewbln7.38.5-10.1 mg/dLPerforming Lab:see note - [facility] LBCBC AUTO DIFF Reviewed date:06/21/2024 12:59:38 PM Interpretation: Performing Lab: Notes/Report: [facility] ,White Blood Count5.64.0-11.0 10 3/uLRed Blood Count3.724.20-5.40 10 6/uL Nkodmjaxqc05.312.0-16.0 g/jIXysnzukruo21.436.0-48.0 %Mean Corpuscular Ahcbdv01.2 81.0-99.0 fLMean Corpuscular Mxjuihhcgi29.126.7-34.0 pgMean Corpuscular HGB Conc 34.729.9-35.2 g/dLRed Cell Distribution Width12.211.0-15.0 %Platelet Iietv946 150-450 10 3/uLMean Platelet Volume9.49.5-13.5 fLNeutrophils Percent Auto83.0 43.0-75.0 %Lymphocytes Percent Auto13.720.5-60.0 %Monocytes Percent Auto2.71.7- 12.0 %Eosinophils Percent Auto0.00.9-7.0 %Basophils Percent Auto0.20.2-2.0 % Immature Granulocytes Pct Auto0.40.0-0.5 %Neutrophils Absolute Auto4.71.4-6.5 10 3/uLLymphocytes Absolute Auto0.81.2-3.8 10 3/uLMonocytes Absolute Auto0.20.3-0.8 10 3/uLEosinophils Absolute Auto0.00.0-0.7 10 3/uLBasophils Absolute Auto0.00.0- 0.1 10 3/uLImmature Granulocytes Abs Auto0.020.00-0.03 10 3/uLPerforming Lab:see noteML - [facility] LBECG 12 lead Reviewed date:06/21/2024 08:02:33 PM Interpretation: Performing Lab: Notes/Report: Source Facility: [facility]-[address] [place] [address] [place] [address] Electrocardiograph Report Signed Patient: JUAN GARCIA MR#: [id number] : 1990 Acct:[id number] Age/Sex: 34 / F ADM Date: 06/21/24 Loc: ER Attending Dr: Ordering Physician: Leslie Terrazas M.D. 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 Measurements Intervals [place] Rate: 80 P: 54 WV: 140 QRS: 47 QRSD: 80 T: 46 QT: 384 QTc: 420 Interpretive Statements 1100 Sinus rhythm 9110 normal ECG Compared to ECG 09/23/2023 18:36:37 No significant changes Electronically Signed On 06-21-2024 18:14:03 EDT by JAMES HODGES M.D. Dictated By: JAMES HODGES Signed By: 06/21/24 1814 DD/ 1124 TD/TT: Suction Plate Roller Hand:CBC AUTO DIFF Reviewed date:08/02/2024 05:29:08 PM Interpretation: Performing Lab: Notes/Report: [facility] ,White Blood Count9.14.0-11.0 10 3/uLRed Blood Count3.854.20-5.40 10 6/uL Fyajyhirfz08.412.0-16.0 g/qEEutrlosoya98.136.0-48.0 %Mean Corpuscular Znseao60.8 81.0-99.0 fLMean Corpuscular Mkkxbbubyd27.226.7-34.0 pgMean Corpuscular HGB Conc 34.329.9-35.2 g/dLRed Cell Distribution Width12.611.0-15.0 %Platelet Yqcfx812 150-450 10 3/uLMean Platelet Qiwgwz61.49.5-13.5 fLNeutrophils Percent Auto83.0 43.0-75.0 %Lymphocytes Percent Auto12.720.5-60.0 %Monocytes Percent Auto3.41.7- 12.0 %Eosinophils Percent Auto0.40.9-7.0 %Basophils Percent Auto0.30.2-2.0 % Immature Granulocytes Pct Auto0.20.0-0.5 %Neutrophils Absolute Auto7.51.4-6.5 10 3/uLLymphocytes Absolute Auto1.21.2-3.8 10 3/uLMonocytes Absolute Auto0.30.3-0.8 10 3/uLEosinophils Absolute Auto0.00.0-0.7 10 3/uLBasophils Absolute Auto0.00.0- 0.1 10 3/uLImmature Granulocytes Abs Auto0.020.00-0.03 10 3/uLPerforming Lab:see noteML - [facility] LBLACTATE or LACTIC ACID Reviewed date:08/02/2024 05:29:08 PM Interpretation: Performing Lab: Notes/Report: [facility] ,Lactate/Lactic Acid2.20.4-2.0 mmol/LRESULTS CALLED TO DR. Larryg Lab:see note - [facility] LBUA Micro, reflex to culture Reviewed date:08/02/2024 05:29:08 PM Interpretation: Performing Lab: Notes/Report: [facility] ,Color UrineLT. YELLOWYELLOWClarity UrineCLEARCLEARSpecific [place] Urine<=1.005 1.005-1.025pH Urine6.55.0-9.0Protein UrineNEGATIVENEG/TRACE mg/dLGlucose Urine UANEGATIVENEGATIVE mg/dLBilirubin UrineNEGATIVENEGATIVEKetones UrineNEGATIVE NEGATIVE mg/dLBlood UrineNEGATIVENEGATIVENitrite UrineNEGATIVENEGATIVE Urobilinogen Urine0.20.2-1.0 EU/dLLeukocyte Esterase UrineNEGATIVENEGATIVEWBC UrineNONE SEENNONE SEEN #/HPFRBC UrineNONE SEEN0-2 #/HPFBacteria UrineTRACENONE SEEN #/HPFMucus UrineNONE SEENNONE SEENSquamous Epithelial Cell UrineFEW NONE/RARE #/LPFCrystals Seen?None SeenNone Seen #/HPFCast Seen?NONE SEENNONE SEEN #/LPFUrine Culture IndicatedNOPerforming Lab:see note - [facility] LBCBC AUTO DIFF Reviewed date:08/15/2024 06:53:10 PM Interpretation: Performing Lab: Notes/Report: [facility] ,White Blood Count12.84.0-11.0 10 3/uLRed Blood Count3.444.20-5.40 10 6/uL Dtgvnqvhrq83.812.0-16.0 g/jJRzmytpgkcx05.436.0-48.0 %Mean Corpuscular Ogfpuf94.3 81.0-99.0 fLMean Corpuscular Voqbzncbfc60.426.7-34.0 pgMean Corpuscular HGB Conc 34.429.9-35.2 g/dLRed Cell Distribution Width13.711.0-15.0 %Platelet Olvqv783 150-450 10 3/uLMean Platelet Stxmxe74.09.5-13.5 fLNeutrophils Percent Auto93.4 43.0-75.0 %Lymphocytes Percent Auto4.720.5-60.0 %Monocytes Percent Auto1.21.7- 12.0 %Eosinophils Percent Auto0.00.9-7.0 %Basophils Percent Auto0.20.2-2.0 % Immature Granulocytes Pct Auto0.50.0-0.5 %Neutrophils Absolute Auto11.91.4-6.5 10 3/uLLymphocytes Absolute Auto0.61.2-3.8 10 3/uLMonocytes Absolute Auto0.20.3- 0.8 10 3/uLEosinophils Absolute Auto0.00.0-0.7 10 3/uLBasophils Absolute Auto0.0 0.0-0.1 10 3/uLImmature Granulocytes Abs Auto0.060.00-0.03 10 3/uLPerforming Lab:see noteML - [facility] LBAerobe ID + Suscept Reviewed date:08/21/2024 08:08:02 [...] note - [facility] LB SEE REPORT - 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 Anaerobe Identification Only Reviewed date:08/21/2024 08:08:02 PM Interpretation: Performing Lab: Notes/Report: [facility] ,Anaerobe Identification OnlySee Below For Report Anaerobe Identification Only Anaerobe Identification OnlySpecimen has been received and testing has been initiated. Anaerobe Identification Only Anaerobe Identification Only Anaerobe Identification Only Anaerobe Identification OnlyNo anaerobes recovered. Anaerobe Identification Only Anaerobe Identification OnlyPerformed at: [facility] Anaerobe Identification Only Anaerobe Identification [id number] [place], [place] [id number] Anaerobe Identification Only Anaerobe Identification OnlyLab Director: Daron Almanza PhD, Phone: [phone] Anaerobe Identification Only Performing Lab:see note - [facility] LB SEE REPORT - 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 Aerobe ID + Suscept Reviewed [...] SANDHYA Status Aerobe ID + SusceptPerformed at: [facility] Aerobe ID + Suscept O:GNR Isolated O:KLEBPN Isolated Organism: 1.2 Antibiotic Interpretation SANDHYA Status Aerobe ID + [id number] [place], [place] [id number] Aerobe ID + Suscept O:GNR Isolated O:KLEBPN Isolated Organism: 1.2 Antibiotic Interpretation SANDHYA Status Aerobe ID + SusceptLab Director: Daron Almanza PhD, Phone: [phone] Aerobe ID + Suscept O:GNR Isolated O:KLEBPN [...] LC - [facility] LB SEE REPORT - 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 Aerobe ID + Suscept Reviewed [...] SANDHYA Status Aerobe ID + SusceptPerformed at: [facility] Aerobe ID + Suscept O:GNR Isolated O:KLEBPN Isolated Organism: 1.2 Antibiotic Interpretation SANDHYA Status Aerobe ID + [id number] [place], [place] [id number] Aerobe ID + Suscept O:GNR Isolated O:KLEBPN Isolated Organism: 1.2 Antibiotic Interpretation SANDHYA Status Aerobe ID + SusceptLab Director: Daron Almanza PhD, Phone: [phone] Aerobe ID + Suscept O:GNR Isolated O:KLEBPN [...] LC - [facility] LB SEE REPORT - 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 CBC AUTO DIFF Reviewed date:08/16/2024 07:06:02 PM Interpretation: Performing Lab: Notes/Report: [facility] ,White Blood Count9.14.0-11.0 10 3/uLRed Blood Count3.064.20-5.40 10 6/uL Hemoglobin9.812.0-16.0 g/hVMkhyixzogl39.236.0-48.0 %Mean Corpuscular Qwxkeh51.2 81.0-99.0 fLMean Corpuscular Msopmsybne06.026.7-34.0 pgMean Corpuscular HGB Conc 34.829.9-35.2 g/dLRed Cell Distribution Width13.611.0-15.0 %Platelet Tidpi665 150-450 10 3/uLMean Platelet Kcjbdj06.19.5-13.5 fLNeutrophils Percent Auto82.6 43.0-75.0 %Lymphocytes Percent Auto11.620.5-60.0 %Monocytes Percent Auto4.81.7- 12.0 %Eosinophils Percent Auto0.60.9-7.0 %Basophils Percent Auto0.10.2-2.0 % Immature Granulocytes Pct Auto0.30.0-0.5 %Neutrophils Absolute Auto7.51.4-6.5 10 3/uLLymphocytes Absolute Auto1.11.2-3.8 10 3/uLMonocytes Absolute Auto0.40.3-0.8 10 3/uLEosinophils Absolute Auto0.10.0-0.7 10 3/uLBasophils Absolute Auto0.00.0- 0.1 10 3/uLImmature Granulocytes Abs Auto0.030.00-0.03 10 3/uLPerforming Lab:see noteML - [facility] LBLACTATE or LACTIC ACID Reviewed date:08/16/2024 07:06:02 PM Interpretation: Performing Lab: Notes/Report: [facility] ,Lactate/Lactic Acid0.60.4-2.0 mmol/LPerforming Lab:see noteML - [facility] LBPROF 14(COMP METB) Reviewed date:08/16/2024 07:06:02 PM Interpretation: Performing Lab: Notes/Report: [facility] ,Rjflco052986-156 mmol/LPotassium3.33.5-5.1 mmol/CMqtmlcii21130-003 mmol/LCarbon Wwdmhwe82.521.0-32.0 mmol/LAnion Gap14.7Hgnognv47596-790 mg/dLBlood Urea Ftkfdnfh06.07.0-18.0 mg/dLCreatinine0.470.55-1.02 mg/dLEstimated GFR ( Shelby>60>=60 mL/min/1.73m 2Estimated GFR (Non- Caroline>60>=60 mL/min/1.73m 2BUN Creatinine Ratio27.0Bmpvwrd5.58.5-10.1 mg/dLBilirubin Total0.70.2-1.0 mg/dL Aspartate Amino Hzmmozarmyx6289-38 U/LAlanine Lfgkuxjzhzmzqxcw1714-14 U/L Alkaline Xinjbrmgfet37932-188 U/LTotal Protein5.86.4-8.2 g/dLAlbumin Level2.4 3.4-5.0 g/dLGlobulin3.4Albumin Globulin Ratio0.7Performing Lab:see noteML - [facility] LBAerobe ID + Suscept Reviewed date:08/21/2024 [...] pneumoniae. O:KLEBPN Isolated Organism: 1.2 Antibiotic Interpretation SANDYHA Status Aerobe ID + Suscept WILL FOLLOW [...] LC - [facility] LB SEE REPORT - 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 Aerobe ID + Suscept Reviewed [...] Antibiotic Interpretation ASNDHYA Status Aerobe ID + Suscept*ABNORMAL* Aerobe ID [...] LC - [facility] LB SEE REPORT - 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 Aerobe ID + Suscept Reviewed [...] SANDHYA Status Aerobe ID + SusceptPerformed at: [facility] Aerobe ID + Suscept O:GNR Isolated O:KLEBPN Isolated Organism: 1.2 Antibiotic Interpretation SANDHYA Status Aerobe ID + [id number] [place], [place] [id number] Aerobe ID + Suscept O:GNR Isolated O:KLEBPN Isolated Organism: 1.2 Antibiotic Interpretation SANDHYA Status Aerobe ID + SusceptLab Director: Daron Almanza PhD, Phone: [phone] Aerobe ID + Suscept O:GNR Isolated O:KLEBPN [...] LC - [facility] LB SEE REPORT - 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 Aerobe ID + Suscept Reviewed [...] SANDHYA Status Aerobe ID + SusceptPerformed at: [facility] Aerobe ID + Suscept O:GNR Isolated O:KLEBPN Isolated Organism: 1.2 Antibiotic Interpretation SANDHYA Status Aerobe ID + [id number] [place], [place] [id number] Aerobe ID + Suscept O:GNR Isolated O:KLEBPN Isolated Organism: 1.2 Antibiotic Interpretation SANDHYA Status Aerobe ID + SusceptLab Director: Daron Almanza PhD, Phone: [phone] Aerobe ID + Suscept O:GNR Isolated O:KLEBPN [...] LC - [facility] LB SEE REPORT - 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 DRUG SCREEN RAPID (URINE) Reviewed date:08/28/2024 06:06:36 PM Interpretation: Performing Lab: Notes/Report: [facility] ,Cannabinoid Screen UrineNEGATIVENEGATIVEPhencyclidine Screen UrineNEGATIVE NEGATIVECocaine [...] Antidepressants): 300 ng/mL Performing Lab:see noteML - [facility] LBManual Differential Reviewed date:08/28/2024 06:06:36 PM Interpretation: Performing Lab: Notes/Report: [facility] ,Segmented Neutrophils % Gqmlfh72.043.0-75.0Lymphocytes Percent Dhuqsd14.020.5- 60.0 %Monocytes Percent Manual2.01.7-12.0 %Eosinophils Percent Manual0.00.9-7.0 %Basophils Percent Manual2.00.2-2.0 %Segmented Neut Absolute Manual4.471.4-6.5 10 3/uLLymphocytes Absolute Manual0.521.20-3.80 10 3/uLMonocytes Absolute Manual 0.100.30-0.80 10 3/uLEosinophils Absolute Manual0.000.00-0.70 10 3/uLBasophils Abs Manual0.100.00-0.10 10 3/uLPerforming Lab:see noteML - [facility] LBECG 12 lead Reviewed date:08/30/2024 05:17:51 PM Interpretation: Performing Lab: Notes/Report: Source Facility: [facility]-[address] [place] [address] [place] [address] Electrocardiograph Report Signed Patient: JUAN GARCIA MR#: [id number] : 1990 Acct:[id number] Age/Sex: 34 / F ADM Date: 08/28/24 Loc: [place] 218-[address]: Kal Wilson M.D. 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1990 Requested By: [id number] Order Number: [id number] Reading MD: KATIE ALTAMIRANO Measurements Intervals [place] Rate: 131 P: 99 WV: 124 QRS: 97 QRSD: 78 T: 68 [...] Signed By: 08/30/24 1325 DD/ 1420 TD/TT: Suction Plate Roller Hand:CBC AUTO DIFF Reviewed date:08/10/2024 07:02:35 PM Interpretation: Performing Lab: Notes/Report: [facility] ,White Blood Count9.34.0-11.0 10 3/uLRed Blood Count3.214.20-5.40 10 6/uL Nujkjuosix20.312.0-16.0 g/aFKsgndketou48.536.0-48.0 %Mean Corpuscular Kuazgk57.9 81.0-99.0 fLMean Corpuscular Hmsqnyxvpa69.126.7-34.0 pgMean Corpuscular HGB Conc 34.929.9-35.2 g/dLRed Cell Distribution Width13.411.0-15.0 %Platelet Hpsdt577 150-450 10 3/uLMean Platelet Mxbwqa24.59.5-13.5 fLNeutrophils Percent Auto83.2 43.0-75.0 %Lymphocytes Percent Auto10.620.5-60.0 %Monocytes Percent Auto4.51.7- 12.0 %Eosinophils Percent Auto0.10.9-7.0 %Basophils Percent Auto0.20.2-2.0 % Immature Granulocytes Pct Auto1.40.0-0.5 %Neutrophils Absolute Auto7.71.4-6.5 10 3/uLLymphocytes Absolute Auto1.01.2-3.8 10 3/uLMonocytes Absolute Auto0.40.3-0.8 10 3/uLEosinophils Absolute Auto0.00.0-0.7 10 3/uLBasophils Absolute Auto0.00.0- 0.1 10 3/uLImmature Granulocytes Abs Auto0.130.00-0.03 10 3/uLPerforming Lab:see noteML - [facility] LBBlood Culture 1 Reviewed date:09/24/2024 07:41:50 PM Interpretation: Performing Lab: Notes/Report: [facility] ,Blood Culture 1See Below For Report NG5D NO GROWTH AT 5 DAYS.^NO GROWTH AT 5 DAYS. Blood Culture 1 Performing Lab:see noteML - [facility] LBCBC no Diff (Hemogram) Reviewed date:08/31/2024 05:12:17 PM Interpretation: Performing Lab: Notes/Report: [facility] ,White Blood Count3.34.0-11.0 10 3/uLRed Blood Count3.384.20-5.40 10 6/uL Heamsqykkh29.112.0-16.0 g/dWMbdxwnostc77.236.0-48.0 %Mean Corpuscular Ntyugl21.3 81.0-99.0 fLMean Corpuscular Zyprreogfk05.926.7-34.0 pgMean Corpuscular HGB Conc 32.429.9-35.2 g/dLRed Cell Distribution Width13.711.0-15.0 %Platelet Vfxxp528 150-450 10 3/uLMean Platelet Jolpjf42.89.5-13.5 fLPerforming Lab:see note - [facility] LBBlood Culture 2 Reviewed date:09/04/2024 02:45:30 PM Interpretation: Performing Lab: Notes/Report: LEFT WRIST [facility] ,Blood Culture 2See Below For Report Blood Culture 2 NG5D NO GROWTH AT 5 DAYS.^NO GROWTH AT 5 DAYS. Performing Lab:see note - [facility] LBPROF 14(COMP METB) Reviewed date:08/28/2024 06:06:36 PM Interpretation: Performing Lab: Notes/Report: [facility] ,Iwrubu560870-854 mmol/LPotassium3.13.5-5.1 mmol/UIuvnnens66930-015 mmol/LCarbon Vgqnshj49.621.0-32.0 mmol/LAnion Gap19.0Aqilagw7242-515 mg/dLBlood Urea Nitrogen 9.07.0-18.0 mg/dLCreatinine0.630.55-1.02 mg/dLEstimated GFR ( Shelby>60 >=60 mL/min/1.73m 2Estimated GFR (Non- Caroline>60>=60 mL/min/1.73m 2BUN Creatinine Ratio14.5Xdbaxqg2.48.5-10.1 mg/dLBilirubin Total0.50.2-1.0 mg/dL Aspartate Amino Nrudppjwtam5279-18 U/LAlanine Uzxyhepresgbshiq9271-97 U/L Alkaline Imyhabnoorp11505-088 U/LTotal Protein6.26.4-8.2 g/dLAlbumin Level2.8 3.4-5.0 g/dLGlobulin3.4Albumin Globulin Ratio0.8Performing Lab:see note - [facility] LBCBC AUTO DIFF Reviewed date:08/28/2024 06:06:36 PM Interpretation: Performing Lab: Notes/Report: [facility] ,White Blood Count5.24.0-11.0 10 3/uLRed Blood Count4.254.20-5.40 10 6/uL Vifmwcksrl13.712.0-16.0 g/nGAcvsasvuuc08.836.0-48.0 %Mean Corpuscular Lrvzdv63.3 81.0-99.0 fLMean Corpuscular Lrksplvuad10.926.7-34.0 pgMean Corpuscular HGB Conc 32.729.9-35.2 g/dLRed Cell Distribution Width13.611.0-15.0 %Platelet Ffziy168 150-450 10 3/uLMean Platelet Idvnrz53.09.5-13.5 fLPerforming Lab:see noteML - [facility] LBECG 12 lead Reviewed date:09/17/2024 07:49:06 PM Interpretation: Performing Lab: Notes/Report: Source Facility: [facility]-[address] [place] [address] [place] [address] Electrocardiograph Report Signed Patient: JUAN GARCIA MR#: [id number] : 1990 Acct:[id number] Age/Sex: 34 / F ADM Date: 09/15/24 Loc: ER Attending Dr: Ordering Physician: Leslie Terrazas M.D. 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 Measurements Intervals [place] Rate: 97 P: 90 WV: 136 QRS: 92 QRSD: 82 T: 18 QT: 356 QTc: 411 Interpretive Statements 1100 Sinus rhythm 4068 Nonspecific Twave abnormality 7102 Moderate right axis deviation Abnormal ECG Compared to ECG 08/29/2024 05:28:41 Right-axis deviation now present Electronically Signed On 09-15-2024 18:32:41 EDT by JAMES HODGES M.D. Dictated By: JAMES HODGES Signed By: 09/15/24 4668 DD/ 2987 TD/TT: Suction Plate Roller Hand:XR chest 1V Reviewed date:09/17/2024 07:49:06 PM Interpretation: Performing Lab: Notes/Report: Source Facility: [place] [address] XRay Report Signed Patient: JUAN GARCIA MR#: [id number] : 1990 Acct:[id number] Age/Sex: 34 / F ADM Date: 09/15/24 Loc: ER Attending Dr: Ordering Physician: Leslie Terrazas M.D. Date of Service: 09/15/24 Procedure(s): XR chest 1V Accession Number(s): [id number] cc: Britt Alas M.D.; Leslie Terrazas M.D. [place] [address] Patient Name: JUAN GARCIA MRN: [id number] date: 1990 Sex: F Assigned Patient Location: ER Current Patient Location: ER Accession/Order Number: [id number] Exam Date: 09/15/2024 17:03 Report Date: 09/15/2024 [...] Lundberg M.D. 09/15/2024 5:04 PM Dictation Location: [place] [address] Electronically authenticated by: [id number] Y Date: 09/15/2024 17:04 Dictated By: Tio Lundberg M.D. Signed By: 09/15/241706 DD/ 03 TD/TT: Suction Plate Roller Hand:Blood Culture 1 Reviewed date:10/10/2024 07:54:38 PM Interpretation: Performing Lab: Notes/Report: [facility] ,Blood Culture 1See Below For Report Blood Culture 1 NG5D NO GROWTH AT 5 DAYS.^NO GROWTH AT 5 DAYS. Performing Lab:see note - [facility] LBBlood Culture 2 Reviewed date:10/10/2024 07:54:38 PM Interpretation: Performing Lab: Notes/Report: PEDS BOTTLE [facility] ,Blood Culture 2See Below For Report Blood Culture 2 NG5D NO GROWTH AT 5 DAYS.^NO GROWTH AT 5 DAYS. Performing Lab:see [facility] LBCRP Reviewed date:10/24/2024 02:11:49 PM Interpretation: Performing Lab: Notes/Report: [facility] ,C Reactive Protein<0.50<=0.50 mg/dLPerforming Lab:see [facility] LBPROF CHEM 8 (BAS METB) Reviewed date:10/24/2024 02:11:49 PM Interpretation: Performing Lab: Notes/Report: [facility] ,[id number] mmol/LPotassium3.73.5-5.1 mmol/CJjcdslrr79216-800 mmol/LCarbon Rgxqznn70.321.0-32.0 mmol/LAnion Gap15.6Xxfessq6617-274 mg/dLBlood Urea Nitrogen 4.07.0-18.0 mg/dLCreatinine0.630.55-1.02 mg/dLEstimated GFR ( [place]>60 >=60 mL/min/1.73m 2Estimated GFR (Non- [place]>60>=60 mL/min/1.73m 2BUN Creatinine Ratio6.8Oukxhlx7.38.5-10.1 mg/dLPerforming Lab:see [facility] LBUA RANDOM W or MICROSCOPIC Reviewed date:10/24/2024 02:11:49 PM Interpretation: Performing Lab: Notes/Report: [facility] ,Color UrineLT. YELLOWYELLOWClarity UrineCLEARCLEARSpecific [place] Urine<=1.005 1.005-1.025pH Urine6.05.0-9.0Protein UrineNEGATIVENEG/TRACE mg/dLGlucose Urine UANEGATIVENEGATIVE mg/dLBilirubin UrineNEGATIVENEGATIVEKetones UrineNEGATIVE NEGATIVE mg/dLBlood UrineNEGATIVENEGATIVENitrite UrineNEGATIVENEGATIVE Urobilinogen Urine0.20.2-1.0 EU/dLLeukocyte Esterase UrineNEGATIVENEGATIVEWBC Urine0-2NONE SEEN #/HPFRBC Urine0-20-2 #/HPFBacteria UrineTRACENONE SEEN #/HPF Mucus UrineNONE SEENNONE SEENSquamous Epithelial Cell UrineFEWNONE/RARE #/LPF Crystals Seen?None SeenNone Seen #/HPFCast Seen?NONE SEENNONE SEEN #/LPFUrine Culture IndicatedNOPerforming Lab:see noteML - [facility] LBECG 12 lead Reviewed date:10/26/2024 07:01:06 PM Interpretation: Performing Lab: Notes/Report: Source Facility: [place] [address] Electrocardiograph Report Signed Patient: JUAN GARCIA MR#: [id number] : 1990 Acct:[id number] Age/Sex: 34 / F ADM Date: 10/24/24 Loc: ER Attending Dr: Ordering Physician: Leslie Terrazas M.D. 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 Signed By: 10/26/24133210/26/241332 DD/ TD/TT: Suction Plate Roller Hand:CBC AUTO DIFF Reviewed date:10/29/2024 12:41:46 PM Interpretation: Performing Lab: Notes/Report: [facility] ,White Blood Count3.44.0-11.0 10 3/uLRed Blood Count3.934.20-5.40 10 6/uL Tcfurjzznb20.612.0-16.0 g/eYIcynkcyaow63.536.0-48.0 %Mean Corpuscular Wqbpxl91.8 81.0-99.0 fLMean Corpuscular Cnekdlxmyh26.526.7-34.0 pgMean Corpuscular HGB Conc 33.629.9-35.2 g/dLRed Cell Distribution Width13.411.0-15.0 %Platelet Uotnp825 150-450 10 3/uLMean Platelet Xxqkrz87.39.5-13.5 fLNeutrophils Percent Auto47.0 43.0-75.0 %Lymphocytes Percent Auto43.820.5-60.0 %Monocytes Percent Auto7.71.7- 12.0 %Eosinophils Percent Auto1.20.9-7.0 %Basophils Percent Auto0.30.2-2.0 % Immature Granulocytes Pct Auto0.00.0-0.5 %Neutrophils Absolute Auto1.61.4-6.5 10 3/uLLymphocytes Absolute Auto1.51.2-3.8 10 3/uLMonocytes Absolute Auto0.30.3-0.8 10 3/uLEosinophils Absolute Auto0.00.0-0.7 10 3/uLBasophils Absolute Auto0.00.0- 0.1 10 3/uLImmature Granulocytes Abs Auto0.000.00-0.03 10 3/uLPerforming Lab:see noteML - [facility] LBLIPASE Reviewed date:10/29/2024 12:41:46 PM Interpretation: Performing Lab: Notes/Report: [facility] ,Nuhqyn22.016.0-77.0 U/LPerforming Lab:see note - [facility] LB MAGNESIUM Reviewed date:10/29/2024 12:41:46 PM Interpretation: Performing Lab: Notes/Report: [facility] ,Magnesium1.71.8-2.4 mg/dLPerforming Lab:see note - [facility] LB PROF 14(COMP METB) Reviewed date:10/29/2024 12:41:46 PM Interpretation: Performing Lab: Notes/Report: [facility] ,Irrcji399963-632 mmol/LPotassium3.63.5-5.1 mmol/EIayiqqnc14260-690 mmol/LCarbon Ycdlusd82.721.0-32.0 mmol/LAnion Gap13.6Adwyymx3269-878 mg/dLBlood Urea Nitrogen 5.07.0-18.0 mg/dLCreatinine0.660.55-1.02 mg/dLEstimated GFR ( Shelby>60 >=60 mL/min/1.73m 2Estimated GFR (Non- Caroline>60>=60 mL/min/1.73m 2BUN Creatinine Ratio7.6Wppdjet2.18.5-10.1 mg/dLBilirubin Total0.40.2-1.0 mg/dL Aspartate Amino Suhivugfncq7824-96 U/LAlanine Slynekbzvqcaypwb0174-58 U/L Alkaline Afwivksoono0374-893 U/LTotal Protein6.56.4-8.2 g/dLAlbumin Level3.53.4- 5.0 g/dLGlobulin3.0Albumin Globulin Ratio1.2Performing Lab:see note - [facility] LBHCG Qualitative* Reviewed date:10/29/2024 12:41:46 PM Interpretation: Performing Lab: Notes/Report: [facility] ,HCG QualitativeNEGATIVENEGATIVEPerforming Lab:see note - [facility] LBCBC AUTO DIFF Reviewed date:10/30/2024 01:16:30 PM Interpretation: Performing Lab: Notes/Report: [facility] ,White Blood Count4.54.0-11.0 10 3/uLRed Blood Count3.884.20-5.40 10 6/uL Rrscmylvyk49.712.0-16.0 g/oVXkbykmosmc12.736.0-48.0 %Mean Corpuscular Irscgt88.4 81.0-99.0 fLMean Corpuscular Wkzkytqlep74.226.7-34.0 pgMean Corpuscular HGB Conc 33.729.9-35.2 g/dLRed Cell Distribution Width13.211.0-15.0 %Platelet Iqogt181 150-450 10 3/uLMean Platelet Zoyojf93.29.5-13.5 fLNeutrophils Percent Auto49.5 43.0-75.0 %Lymphocytes Percent Auto41.020.5-60.0 %Monocytes Percent Auto7.71.7- 12.0 %Eosinophils Percent Auto0.90.9-7.0 %Basophils Percent Auto0.90.2-2.0 % Immature Granulocytes Pct Auto0.00.0-0.5 %Neutrophils Absolute Auto2.31.4-6.5 10 3/uLLymphocytes Absolute Auto1.91.2-3.8 10 3/uLMonocytes Absolute Auto0.40.3-0.8 10 3/uLEosinophils Absolute Auto0.00.0-0.7 10 3/uLBasophils Absolute Auto0.00.0- 0.1 10 3/uLImmature Granulocytes Abs Auto0.000.00-0.03 10 3/uLPerforming Lab:see noteML - [facility] LBPTT Reviewed date:10/30/2024 02:53:54 PM Interpretation: Performing Lab: Notes/Report: [facility] ,Partial Thromboplastin Time28.622.3-36.2 secPerforming Lab:see noteML - [facility] LBProthrombin Time INR Reviewed date:10/30/2024 02:53:54 PM Interpretation: Performing Lab: Notes/Report: [facility] ,Prothrombin Time11.49.0-11.6 secINR1.08 DESIRED INR: 2.0-3.0 CONDITIONS NOT LISTED BELOW 2.5-3.5 FOR PROSTHETIC HEART VALVE REPLACEMENT 2.5-3.5 RECURRENT THROMBOSIS Performing Lab:see noteML - [facility] LBECG 12 lead Reviewed date:10/30/2024 05:59:55 PM Interpretation: Performing Lab: Notes/Report: Source Facility: [place] [address] Electrocardiograph Report Signed Patient: JUAN GARCIA MR#: [id number] : 1990 Acct:[id number] Age/Sex: 34 / F ADM Date: 10/30/24 Loc: ER Attending Dr: Ordering Physician: Barbara Willoughby Date of Service: 10/30/24 Procedure(s): ECG 12 lead Accession Number(s): [id number] cc: [facility] Test Date: 2024-10-30 Pat Name: JUAN GARCIA Department: Room: - 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 Signed By: 10/30/24 1654 DD/ 1015 TD/TT: Suction Plate Roller Hand:ARABELLA chest 1V Reviewed date:10/30/2024 01:16:30 PM Interpretation: Performing Lab: Notes/Report: Source Facility: [place] [address] [place] [address] XRay Report Signed Patient: JUAN GARCIA MR#: [id number] : 1990 Acct:[id number] Age/Sex: 34 / F ADM Date: Loc: ER Attending Dr: Ordering Physician: Barbara Willoughby Date of Service: 10/30/24 Procedure(s): XR chest 1V Accession Number(s): [id number] cc: Britt Alas M.D.; Barbara Willoughby The [address] [address] Patient Name: JUAN GARCIA MRN: [id number] date: 1990 Sex: F Assigned Patient Location: ED.MAIN Current Patient Location: ED.MAIN Accession/Order Number: [id number] Exam Date: 10/30/2024 10:20 Report Date: 10/30/2024 [...] Hutchinson M.D. 10/30/2024 10:45 AM Dictation Location: [place] [address] Electronically authenticated by: [id number] Y Date: 10/30/2024 10:45 Dictated By: Maricruz Hutchinson M.D. Signed By: 10/30/24 1048 DD/ 1045 TD/TT: Suction Plate Roller Hand:Troponin I High Sensitivity Reviewed date:10/30/2024 01:16:30 PM Interpretation: Performing Lab: Notes/Report: [facility] ,Troponin I High Cijwyfwxmaf652.64.0-51.3 pg/mL RESULTS CALLED TO HENNY SHAH at [...] CLINICAL INFORMATION. Performing Lab:see noteML - [facility] LBECG 12 lead Reviewed date:10/30/2024 05:59:55 PM Interpretation: Performing Lab: Notes/Report: Source Facility: [facility]-[address] [place] [address] [address] Electrocardiograph Report Signed Patient: JUAN GARCIA MR#: [id number] : 1990 Acct:[id number] Age/Sex: 34 / F ADM Date: 10/30/24 Loc: ER Attending Dr: Ordering Physician: Barbara Willoughby Date of Service: 10/30/24 Procedure(s): ECG 12 lead Accession Number(s): [id number] cc: [facility] Test Date: 2024-10-30 Pat Name: JUAN GARCIA Department: Room: - 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 Signed By: 10/30/24 1658 DD/ 1256 TD/TT: Suction Plate Roller Hand:Troponin I High Sensitivity Reviewed date:10/30/2024 04:08:35 PM Interpretation: Performing Lab: Notes/Report: [facility] ,Troponin I High Pmfuaryxjeu466.34.0-51.3 pg/mL PERCENTILE OF cTnI DISTRIBUTION IN A [...] THE 99TH Performing Lab:see noteML - [facility] LBCBC AUTO DIFF Reviewed date:11/14/2024 04:56:23 PM Interpretation: Performing Lab: Notes/Report: [facility] ,White Blood Count3.64.0-11.0 10 3/uLRed Blood Count3.044.20-5.40 10 6/uL Hemoglobin9.212.0-16.0 g/rZKlxnmlvchi77.836.0-48.0 %Mean Corpuscular Uleeoy98.4 81.0-99.0 fLMean Corpuscular Gbxfpbcwal82.326.7-34.0 pgMean Corpuscular HGB Conc 33.129.9-35.2 g/dLRed Cell Distribution Width14.611.0-15.0 %Platelet Tclpc101 150-450 10 3/uLMean Platelet Iblgrt19.69.5-13.5 fLNeutrophils Percent Auto36.0 43.0-75.0 %Lymphocytes Percent Auto47.420.5-60.0 %Monocytes Percent Auto10.01.7- 12.0 %Eosinophils Percent Auto5.80.9-7.0 %Basophils Percent Auto0.80.2-2.0 % Immature Granulocytes Pct Auto0.00.0-0.5 %Neutrophils Absolute Auto1.31.4-6.5 10 3/uLLymphocytes Absolute Auto1.71.2-3.8 10 3/uLMonocytes Absolute Auto0.40.3-0.8 10 3/uLEosinophils Absolute Auto0.20.0-0.7 10 3/uLBasophils Absolute Auto0.00.0- 0.1 10 3/uLImmature Granulocytes Abs Auto0.000.00-0.03 10 3/uLPerforming Lab:see noteML - [facility] LBLIVER PROFILE Reviewed date:11/15/2024 01:03:51 PM Interpretation: Performing Lab: Notes/Report: [facility] ,Bilirubin Total0.40.2-1.0 mg/dLBilirubin Direct0.10.0-0.2 mg/dLAspartate Amino Vgmcuialuvv4235-62 U/LAlanine Uihfjcofdhmhzrxv6991-39 U/LAlkaline Pjmbddxqpgz59 46-116 U/LTotal Protein6.26.4-8.2 g/dLAlbumin Level2.93.4-5.0 g/dLGlobulin3.3 Albumin Globulin Ratio0.9Performing Lab:see noteML - [facility] LB PROF CHEM 8 (BAS METB) Reviewed date:11/14/2024 04:56:23 PM Interpretation: Performing Lab: Notes/Report: [facility] ,Cvkqid777145-307 mmol/LPotassium3.83.5-5.1 mmol/YCcayrhia06149-215 mmol/LCarbon Fxcyicd35.321.0-32.0 mmol/LAnion Gap14.2Brcncnn8721-004 mg/dLBlood Urea Nitrogen 12.07.0-18.0 mg/dLCreatinine0.730.55-1.02 mg/dLEstimated GFR ( Shelby>60 >=60 mL/min/1.73m 2Estimated GFR (Non- Caroline>60>=60 mL/min/1.73m 2BUN Creatinine Ratio16.5Dzlvyia4.98.5-10.1 mg/dLPerforming Lab:see noteML - [facility] LBTroponin I High Sensitivity Reviewed date:11/14/2024 04:56:23 PM Interpretation: Performing Lab: Notes/Report: [facility] ,Troponin I High Sensitivity5.64.0-51.3 pg/mL CUT-OFF [...] CLINICAL INFORMATION. Performing Lab:see noteML - [facility] LBECG 12 lead Reviewed date:11/15/2024 01:03:51 PM Interpretation: Performing Lab: Notes/Report: Source Facility: [facility]-[address], [place] [address] Electrocardiograph Report Signed Patient: JUAN GARCIA MR#: [id number] : 1990 Acct:[id number] Age/Sex: 34 / F ADM Date: 11/14/24 Loc: ER Attending Dr: Ordering Physician: Otilio Klein Date of Service: 11/14/24 Procedure(s): ECG 12 lead Accession Number(s): [id number] cc: [facility] Test Date: 2024-11-14 Pat Name: JUAN GARCIA Department: Room: - 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 Measurements Intervals [place] Rate: 69 P: 76 WV: 154 QRS: 80 QRSD: 90 T: 84 QT: 402 QTc: 420 Interpretive Statements 1100 Sinus rhythm 9110 normal ECG Compared to ECG 10/30/2024 15:31:37 No significant changes Electronically Signed On 11-14-2024 20:01:07 EDT by JAMES HODGES M.D. Dictated By: JAMES HODGES Signed By: 11/14/24200011/14/242000 DD/ 22 TD/TT: Suction Plate Roller Hand:XR chest 2V Reviewed date:11/15/2024 01:03:51 PM Interpretation: Performing Lab: Notes/Report: Source Facility: [place] [address] XRay Report Signed Patient: JUAN GARCIA MR#: [id number] : 1990 Acct:[id number] Age/Sex: 34 / F ADM Date: 11/14/24 Loc: ER Attending Dr: Ordering Physician: Otilio Klein Date of Service: 11/14/24 Procedure(s): XR chest 2V Accession Number(s): [id number] cc: Britt Alas M.D.; Otilio Klein [place] [address] Patient Name: JUAN GARCIA MRN: [id number] date: 1990 Sex: F Assigned Patient Location: ED.MAIN Current Patient Location: ED.MAIN Accession/Order Number: [id number] Exam Date: 11/14/2024 16:48 Report Date: 11/14/2024 [...] Davis M.D. 11/14/2024 5:27 PM Dictation Location: [place] [address] Electronically authenticated by: [id number] Y Date: 11/14/2024 17:27 Dictated By: Massimo Davis D.O. Signed By: 11/14/24 1730 DD/ 172 TD/TT: Suction Plate Roller Hand:CT angio chest Reviewed date:11/15/2024 01:03:51 PM Interpretation: Performing Lab: Notes/Report: Source Facility: [place] [address] CT Scan Report Signed Patient: JUAN GARCIA MR#: [id number] : 1990 Acct:[id number] Age/Sex: 34 / F ADM Date: 11/14/24 Loc: ER Attending Dr: Ordering Physician: Otilio Klein Date of Service: 11/14/24 Procedure(s): CT angio chest Accession Number(s): [id number] cc: Britt Alas M.D. [place] [address] Patient Name: JUAN GARCIA MRN: [id number] date: 1990 Sex: F Assigned Patient Location: ED.MAIN Current Patient Location: ED.MAIN Accession/Order Number: [id number] Exam Date: 11/14/2024 18:33 Report Date: 11/14/2024 [...] Davis M.D. 11/14/2024 7:14 PM Dictation Location: [place] [address] Electronically authenticated by: [id number] Y Date: 11/14/2024 19:14 Dictated By: Massimo Davis D.O. Signed By: 11/14/241916 DD/ 13 TD/TT: Suction Plate Roller Hand:CT angio abdomen pelvis Reviewed date:11/15/2024 01:03:51 PM Interpretation: Performing Lab: Notes/Report: Source Facility: [place] [address] CT Scan Report Signed Patient: JUAN GARCIA MR#: [id number] : 1990 Acct:[id number] Age/Sex: 34 / F ADM Date: 11/14/24 Loc: ER Attending Dr: Ordering Physician: Otilio Klein Date of Service: 11/14/24 Procedure(s): CT angio abdomen pelvis Accession Number(s): [id number] cc: Britt Alas M.D. [place] [address] Patient Name: JUAN GARCIA MRN: [id number] date: 1990 Sex: F Assigned Patient Location: ED.MAIN Current Patient Location: ED.MAIN Accession/Order Number: [id number] Exam Date: 11/14/2024 18:33 Report Date: 11/14/2024 [...] Davis M.D. 11/14/2024 7:14 PM Dictation Location: [place] [address] Electronically authenticated by: [id number] Y Date: 11/14/2024 19:14 Dictated By: Massimo Davis D.O. Signed By: 11/14/241916 DD/ 13 TD/TT: Suction Plate Roller Hand:Troponin I High Sensitivity Reviewed date:11/15/2024 01:03:51 PM Interpretation: Performing Lab: Notes/Report: [facility] ,Troponin I High Sensitivity5.74.0-51.3 pg/mL CUT-OFF [...] CLINICAL INFORMATION. Performing Lab:see noteML - [facility] LBCBC AUTO DIFF Reviewed date:11/19/2024 02:14:57 PM Interpretation: Performing Lab: Notes/Report: [facility] ,White Blood Count3.44.0-11.0 10 3/uLRed Blood Count3.334.20-5.40 10 6/uL Hemoglobin9.812.0-16.0 g/iJEppgvabtum32.636.0-48.0 %Mean Corpuscular Hplmok46.9 81.0-99.0 fLMean Corpuscular Tguatqjfsz15.426.7-34.0 pgMean Corpuscular HGB Conc 33.129.9-35.2 g/dLRed Cell Distribution Width14.011.0-15.0 %Platelet Wyyrd326 150-450 10 3/uLMean Platelet Wcnfrt94.29.5-13.5 fLNeutrophils Percent Auto43.8 43.0-75.0 %Lymphocytes Percent Auto42.120.5-60.0 %Monocytes Percent Auto8.81.7- 12.0 %Eosinophils Percent Auto3.80.9-7.0 %Basophils Percent Auto1.20.2-2.0 % Immature Granulocytes Pct Auto0.30.0-0.5 %Neutrophils Absolute Auto1.51.4-6.5 10 3/uLLymphocytes Absolute Auto1.41.2-3.8 10 3/uLMonocytes Absolute Auto0.30.3-0.8 10 3/uLEosinophils Absolute Auto0.10.0-0.7 10 3/uLBasophils Absolute Auto0.00.0- 0.1 10 3/uLImmature Granulocytes Abs Auto0.010.00-0.03 10 3/uLPerforming Lab:see noteML - [facility] LBHCG Qualitative* Reviewed date:11/19/2024 02:14:57 PM Interpretation: Performing Lab: Notes/Report: [facility] ,HCG QualitativeNEGATIVENEGATIVEPerforming Lab:see noteML - [facility] LBECG 12 lead Reviewed date:11/20/2024 12:44:41 PM Interpretation: Performing Lab: Notes/Report: Source Facility: [place] [address] Electrocardiograph Report Signed Patient: JUAN GARCIA MR#: [id number] : 1990 Acct:[id number] Age/Sex: 34 / F ADM Date: 11/19/24 Loc: [place] 214-[address]: TRACIE ZIMMER Ordering Physician: TRACIE ZIMMER Date of Service: 11/19/24 Procedure(s): ECG 12 lead Accession Number(s): [id number] cc: [facility] Test Date: 2024-11-19 Pat Name: JUAN GARCIA Department: Room: 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 Measurements Intervals [place] Rate: 60 P: 50 WV: 153 QRS: 41 QRSD: 89 T: 51 QT: 427 QTc: 428 Interpretive Statements SINUS RHYTHM Normal ECG Compared to ECG 11/14/2024 17:23:57 No significant changes Electronically Signed On 11-19-2024 19:26:01 EDT by JAMES HODGES M.D. Dictated By: JAMES HODGES Signed By: 11/19/24192511/19/241925 DD/ 1553 TD/TT: Suction Plate Roller Hand:XR chest 1V Reviewed date:11/19/2024 02:14:57 PM Interpretation: Performing Lab: Notes/Report: Source Facility: [place] [address] [place] [address] XRay Report Signed Patient: JUAN GARCIA MR#: [id number] : 1990 Acct:[id number] Age/Sex: 34 / F ADM Date: 11/19/24 Loc: ER Attending Dr: Ordering Physician: Barbara Willoughby Date of Service: 11/19/24 Procedure(s): XR chest 1V Accession Number(s): [id number] cc: Britt Alas M.D.; Barbara Willoughby [place] [id number] Patient Name: JUAN GARCIA MRN: [id number] date: 1990 Sex: F Assigned Patient Location: ED.MAIN Current Patient Location: ED.MAIN Accession/Order Number: [id number] Exam Date: 11/19/2024 09:40 Report Date: 11/19/2024 [...] Jr., D.ORenetta 11/19/2024 9:54 AM Dictation Location: [facility] Electronically authenticated by: [id number] Y Date: 11/19/2024 09:54 Dictated By: Cornel Medel M.D. Signed By: 11/19/2457 DD/ 3 TD/TT: Suction Plate Roller Hand:Troponin I High Sensitivity Reviewed date:11/19/2024 02:14:57 PM Interpretation: Performing Lab: Notes/Report: [facility] ,Troponin I High Sensitivity4.84.0-51.3 pg/mL CUT-OFF [...] CLINICAL INFORMATION. Performing Lab:see noteML - [facility] LBCBC AUTO DIFF Reviewed date:11/20/2024 12:44:41 PM Interpretation: Performing Lab: Notes/Report: [facility] ,White Blood Count2.94.0-11.0 10 3/uLRed Blood Count3.174.20-5.40 10 6/uL Hemoglobin9.312.0-16.0 g/jBHcsfupylzn04.436.0-48.0 %Mean Corpuscular Ofncrc90.6 81.0-99.0 fLMean Corpuscular Tgqlmvrals86.326.7-34.0 pgMean Corpuscular HGB Conc 32.729.9-35.2 g/dLRed Cell Distribution Width14.111.0-15.0 %Platelet Wvhls147 150-450 10 3/uLMean Platelet Vzhrun28.39.5-13.5 fLPerforming Lab:see noteML - [facility] LBPROF CHEM 8 (BAS METB) Reviewed date:11/20/2024 12:44:41 PM Interpretation: Performing Lab: Notes/Report: [facility] ,Qxcxqz407471-440 mmol/LPotassium4.13.5-5.1 mmol/JJorfcngb83328-833 mmol/LCarbon Ipurxwd97.821.0-32.0 mmol/LAnion Gap12.3Eyzulmf0792-027 mg/dLBlood Urea Nitrogen 10.07.0-18.0 mg/dLCreatinine0.750.55-1.02 mg/dLEstimated GFR ( [place]>60 >=60 mL/min/1.73m 2Estimated GFR (Non- Caroline>60>=60 mL/min/1.73m 2BUN Creatinine Ratio13.4Ykvkkqd7.38.5-10.1 mg/dLPerforming Lab:see noteML - [facility] LBManual Differential Reviewed date:11/20/2024 12:44:41 PM Interpretation: Performing Lab: Notes/Report: [facility] ,Segmented Neutrophils % Odmkcz28.043.0-75.0Lymphocytes Percent Fkscgv46.020.5- 60.0 %Monocytes Percent Mosqgs29.01.7-12.0 %Eosinophils Percent Ttwcwp85.00.9- 7.0 %Basophils Percent Manual2.00.2-2.0 %Atypical Lymphocytes % Manual3.0 Segmented Neut Absolute Manual0.951.4-6.5 10 3/uLLymphocytes Absolute Manual1.16 1.20-3.80 10 3/uLMonocytes Absolute Manual0.310.30-0.80 10 3/uLEosinophils Absolute Manual0.340.00-0.70 10 3/uLBasophils Abs Manual0.050.00-0.10 10 3/uL Atypical Lymphocytes Abs Man0.84Uliqihjjevjfl1+Poikilocytosis1+Anisocytosis2+ Performing Lab:see noteML - [facility] LBTroponin I High Sensitivity Reviewed date:11/20/2024 12:44:41 PM Interpretation: Performing Lab: Notes/Report: [facility] ,Troponin I High Sensitivity5.24.0-51.3 pg/mL CUT-OFF [...] CLINICAL INFORMATION. Performing Lab:see noteML - [facility] LBECG 12 lead Reviewed date:11/20/2024 06:47:06 PM Interpretation: Performing Lab: Notes/Report: Source Facility: [place] [address] [place] [address] Electrocardiograph Report Signed Patient: JUAN GARCIA MR#: [id number] : 1990 Acct:[id number] Age/Sex: 34 / F ADM Date: 11/19/24 Loc: [place] 214-[address]: TRACIE ZIMMER Ordering Physician: TRACIE ZIMMER Date of Service: 11/20/24 Procedure(s): ECG 12 lead Accession Number(s): [id number] cc: [facility] Test Date: 2024-11-20 Pat Name: JUAN GARCIA Department: Room: 214 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 Measurements Intervals [place] Rate: 66 P: 51 WV: 157 QRS: 46 QRSD: 89 T: 55 QT: 434 QTc: 457 Interpretive Statements SINUS RHYTHM WITH OCCASIONAL VENTRICULAR PREMATURE COMPLEXES Otherwise normal ECG Compared to ECG 11/19/2024 15:53:20 Ventricular premature complex(es) now present Electronically Signed On 11-20-2024 18:25:25 EDT by JAMES HODGES M.D. Dictated By: JAMES HODGES Signed By: 11/20/24 1825 DD/ 0526 TD/TT: Suction Plate Roller Hand:ECG 12 lead Reviewed date:11/21/2024 04:20:51 PM Interpretation: Performing Lab: Notes/Report: Source Facility: [place] [address] Electrocardiograph Report Signed Patient: JUAN GARCIA MR#: [id number] : 1990 Acct:[id number] Age/Sex: 34 / F ADM Date: 11/19/24 Loc: [place] 214- Attending Dr: TRACIE ZIMMER Ordering Physician: Kal Wilson M.D. Date of Service: 11/21/24 Procedure(s): ECG 12 lead Accession Number(s): [id number] cc: [facility] Test Date: 2024-11-21 Pat Name: JUAN GARCIA Department: Room: 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 Signed By: 11/21/24 1257 DD/ 1100 TD/TT: Suction Plate Roller Hand:CBC AUTO DIFF Reviewed date:11/30/2024 07:01:13 PM Interpretation: Performing Lab: Notes/Report: [facility] ,White Blood Count3.84.0-11.0 10 3/uLRed Blood Count3.514.20-5.40 10 6/uL Dsmfnipjmt79.312.0-16.0 g/lQLeixwsselq93.336.0-48.0 %Mean Corpuscular Pexrkq98.2 81.0-99.0 fLMean Corpuscular Nsjbouaykx30.326.7-34.0 pgMean Corpuscular HGB Conc 32.929.9-35.2 g/dLRed Cell Distribution Width13.811.0-15.0 %Platelet Vqkcz893 150-450 10 3/uLMean Platelet Efkijh25.89.5-13.5 fLNeutrophils Percent Auto53.1 43.0-75.0 %Lymphocytes Percent Auto34.220.5-60.0 %Monocytes Percent Auto7.41.7- 12.0 %Eosinophils Percent Auto4.20.9-7.0 %Basophils Percent Auto1.10.2-2.0 % Immature Granulocytes Pct Auto0.00.0-0.5 %Neutrophils Absolute Auto2.01.4-6.5 10 3/uLLymphocytes Absolute Auto1.31.2-3.8 10 3/uLMonocytes Absolute Auto0.30.3-0.8 10 3/uLEosinophils Absolute Auto0.20.0-0.7 10 3/uLBasophils Absolute Auto0.00.0- 0.1 10 3/uLImmature Granulocytes Abs Auto0.000.00-0.03 10 3/uLPerforming Lab:see noteML - [facility] LBPROF 14(COMP METB) Reviewed date:11/30/2024 07:01:13 PM Interpretation: Performing Lab: Notes/Report: [facility] ,Gnweqn619249-475 mmol/LPotassium3.83.5-5.1 mmol/FOhyxuirb39372-783 mmol/LCarbon Ogoptsd84.721.0-32.0 mmol/LAnion Gap15.9Wwqkxtd7055-991 mg/dLBlood Urea Nitrogen 9.07.0-18.0 mg/dLCreatinine0.660.55-1.02 mg/dLEstimated GFR ( Shelby>60 >=60 mL/min/1.73m 2Estimated GFR (Non- Caroline>60>=60 mL/min/1.73m 2BUN Creatinine Ratio13.1Dsjjnlo0.28.5-10.1 mg/dLBilirubin Total0.30.2-1.0 mg/dL Aspartate Amino Cuhsrfrxukr0126-38 U/LAlanine Puulntxprjpwszdk5971-64 U/L Alkaline Yaqfnofetsh5169-465 U/LTotal Protein6.56.4-8.2 g/dLAlbumin Level3.23.4- 5.0 g/dLGlobulin3.3Albumin Globulin Ratio1.0Performing Lab:see noteML - [facility] LBUA (CLEAN or CATCH) CRAP SHOOTER or MICRO IF IND. Reviewed date:11/30/2024 07:01:13 PM Interpretation: Performing Lab: Notes/Report: CATH SPECIMEN [facility] ,Color UrineYELLOWYELLOWClarity UrineCLEARCLEARSpecific [place] Urine>=1.030 1.005-1.025pH Urine5.55.0-9.0Protein UrineNEGATIVENEG/TRACE mg/dLGlucose Urine UANEGATIVENEGATIVE mg/dLBilirubin UrineNEGATIVENEGATIVEKetones UrineNEGATIVE NEGATIVE mg/dLBlood UrineMODERATENEGATIVENitrite UrineNEGATIVENEGATIVE Urobilinogen Urine0.20.2-1.0 EU/dLLeukocyte Esterase UrineNEGATIVENEGATIVEUrine Microscopic IndicatedYESPerforming Lab:see noteML - [facility] LB URINE MICROSCOPIC ONLY Reviewed date:11/30/2024 07:01:13 PM Interpretation: Performing Lab: Notes/Report: CATH SPECIMEN [facility] ,WBC Urine0-2NONE SEEN #/HPFRBC Ogszi60-610-3 #/HPFBacteria UrineNONE SEENNONE SEEN #/HPFMucus UrineTRACENONE SEENSquamous Epithelial Cell UrineFEWNONE/RARE #/LPFCrystals Seen?SeenNone Seen #/HPFCalcium Oxalate Crystals UrineFEWCast Seen?NONE SEENNONE SEEN #/LPFUrine Culture IndicatedNOPerforming Lab:see noteML - [facility] LBHCG Qualitative* Reviewed date:11/30/2024 07:01:13 PM Interpretation: Performing Lab: Notes/Report: [facility] ,HCG QualitativeNEGATIVENEGATIVEPerforming Lab:see noteML - [facility] LBCT abdomen pelvis wo con Reviewed date:11/30/2024 07:01:13 PM Interpretation: Performing Lab: Notes/Report: Source Facility: [place] [address] CT Scan Report Signed Patient: JUAN GARCIA MR#: [id number] : 1990 Acct:[id number] Age/Sex: 34 / F ADM Date: 11/30/24 Loc: ER Attending Dr: Ordering Physician: Barbara Willoughby Date of Service: 11/30/24 Procedure(s): CT abdomen pelvis wo con Accession Number(s): [id number] cc: Britt Alas M.D. [place] [address] Patient Name: JUAN GARCIA MRN: [id number] date: 1990 Sex: F Assigned Patient Location: ER Current Patient Location: ER Accession/Order Number: [id number] Exam Date: 11/30/2024 11:00 Report Date: 11/30/2024 [...] No pericecal moderate changes. No bowel obstruction. Dhtw-xp-qcsqrhpk retained stool. Pelvis:[Bladder collapsed with Costello catheter [...] Lundberg M.D. 11/30/2024 11:55 AM Dictation Location: [place] [address] Electronically authenticated by: [id number] Y Date: 11/30/2024 11:55 Dictated By: Tio Lundberg M.D. Signed By: 11/30/24 1158 DD/ 1155 TD/TT: Suction Plate Roller Hand:IRON AND TIBC Reviewed date:12/06/2024 05:46:04 PM Interpretation: Performing Lab: Notes/Report: [facility] ,Iron36.050.0-170.0 ug/dLTotal Iron Binding Fswsazgo294.0250.0-450.0 ug/dL Percent Iron Mnjgfyymmy83.9Performing Lab:see noteML - [facility] LB CBC AUTO DIFF Reviewed date:12/07/2024 02:52:45 PM Interpretation: Performing Lab: Notes/Report: [facility] ,White Blood Count4.54.0-11.0 10 3/uLRed Blood Count3.594.20-5.40 10 6/uL Hypotlqiar24.412.0-16.0 g/yNCopsihxxlj45.936.0-48.0 %Mean Corpuscular Yzkzvt53.9 81.0-99.0 fLMean Corpuscular Djhzhaoyrw17.026.7-34.0 pgMean Corpuscular HGB Conc 32.629.9-35.2 g/dLRed Cell Distribution Width14.011.0-15.0 %Platelet Ikoef277 150-450 10 3/uLMean Platelet Devomy27.59.5-13.5 fLNeutrophils Percent Auto39.6 43.0-75.0 %Lymphocytes Percent Auto47.320.5-60.0 %Monocytes Percent Auto9.01.7- 12.0 %Eosinophils Percent Auto3.40.9-7.0 %Basophils Percent Auto0.70.2-2.0 % Immature Granulocytes Pct Auto0.00.0-0.5 %Neutrophils Absolute Auto1.81.4-6.5 10 3/uLLymphocytes Absolute Auto2.11.2-3.8 10 3/uLMonocytes Absolute Auto0.40.3- 0.8 10 3/uLEosinophils Absolute Auto0.20.0-0.7 10 3/uLBasophils Absolute Auto0.0 0.0-0.1 10 3/uLImmature Granulocytes Abs Auto0.000.00-0.03 10 3/uLPerforming Lab:see noteML - [facility] LBLIVER PROFILE Reviewed date:12/07/2024 04:07:08 PM Interpretation: Performing Lab: Notes/Report: [facility] ,Bilirubin Total0.30.2-1.0 mg/dLBilirubin Direct0.10.0-0.2 mg/dLAspartate Amino Gortzuriwps3795-68 U/LAlanine Yhgzlugwdqgenbre8265-36 U/LAlkaline Ewdcfdyljee31 46-116 U/LTotal Protein6.76.4-8.2 g/dLAlbumin Level3.43.4-5.0 g/dLGlobulin3.3 Albumin Globulin Ratio1.0Performing Lab:see noteML - [facility] LB Urine Culture - [facility] Reviewed date:12/11/2024 06:50:28 PM Interpretation: Performing Lab: Notes/Report: [facility] ,[facility]rine [facility] - [facility] For Report O:ENTFAC Isolated Urine Culture - FR [place] Count Organism: 1.1 Antibiotic Interpretation SANDHYA Status Urine Culture - FR Testing performed at [facility] Urine Culture - [id number] [place] [address] O:ENTFAC Isolated Urine Culture - [facility] [place] Count Organism: 1.1 Antibiotic Interpretation SANDHYA Status Urine Culture - [facility] Testing performed at [facility] Urine Culture - FRMCSee Below For Report O:ENTFAC Isolated Urine Culture - [facility] [place] Count Organism: 1.1 Antibiotic Interpretation SANDHYA Status Urine Culture - [facility] Testing performed at [facility] Urine Culture - FRMCSee Below For Report O:ENTFAC Isolated Urine Culture - [facility] [place] Count Organism: 1.1 Antibiotic Interpretation SANDHYA Status Urine Culture - [facility] Testing performed at [facility] Urine Culture - [facility]>100,000 O:ENTFAC Isolated Urine Culture - [facility] [place] Count Organism: 1.1 Antibiotic Interpretation SANDHYA Status Urine Culture - [facility] Testing performed at [facility] Urine Culture - [facility] O:ENTFAC Isolated Urine Culture - [facility] [place] Count Organism: 1.1 Antibiotic Interpretation SANDHYA Status Urine Culture - [facility] Testing performed at [facility] Urine Culture - [facility]* This is a corrected result. * O:ENTFAC Isolated Urine Culture - [facility] [place] Count Organism: 1.1 Antibiotic Interpretation SANDHYA Status Urine Culture - [facility] Testing performed at [facility] Urine Culture - [facility] O:ENTFAC Isolated Urine Culture - [facility] [place] Count Organism: 1.1 Antibiotic Interpretation SANDHYA Status Urine Culture - [facility] Testing performed at [facility] Urine Culture - FRA prior result that was reported as final has been changed. O:ENTFAC Isolated Urine Culture - [facility] [place] Count Organism: 1.1 Antibiotic Interpretation SANDHYA Status Urine Culture - [facility] Testing performed at [facility] Urine Culture - FRMCSee Below For Report O:ENTFAC Isolated Urine Culture - [facility] [place] Count Organism: 1.1 Antibiotic Interpretation SANDHYA Status Urine Culture - [facility] Testing performed at [facility] Urine Culture - FRMCAmpicillin S F O:ENTFAC Isolated Urine Culture - [facility] [place] Count Organism: 1.1 Antibiotic Interpretation SANDHYA Status Urine Culture - [facility] Testing performed at [facility] Urine Culture - FRMCDaptomycin S F O:ENTFAC Isolated Urine Culture - [facility] [place] Count Organism: 1.1 Antibiotic Interpretation SANDHYA Status Urine Culture - [facility] Testing performed at [facility] Urine Culture - FRMCLevofloxacin S F O:ENTFAC Isolated Urine Culture - [facility] [place] Count Organism: 1.1 Antibiotic Interpretation SANDHYA Status Urine Culture - [facility] Testing performed at [facility] Urine Culture - FRMCLinezolid S F O:ENTFAC Isolated Urine Culture - [facility] [place] Count Organism: 1.1 Antibiotic Interpretation SANDHYA Status Urine Culture - [facility] Testing performed at [facility] Urine Culture - FRMCNitrofurantoin S F O:ENTFAC Isolated Urine Culture - [facility] [place] Count Organism: 1.1 Antibiotic Interpretation SANDHYA Status Urine Culture - [facility] Testing performed at [facility] Urine Culture - FRMCPenicillin S F O:ENTFAC Isolated Urine Culture - [facility] [place] Count Organism: 1.1 Antibiotic Interpretation SANDHYA Status Urine Culture - [facility] Testing performed at [facility] Urine Culture - FRMCTetracycline R F O:ENTFAC Isolated Urine Culture - [facility] [place] Count Organism: 1.1 Antibiotic Interpretation SANDHYA Status Urine Culture - [facility] Testing performed at [facility] Urine Culture - FRMCVancomycin S F O:ENTFAC Isolated Urine Culture - [facility] [place] Count Organism: 1.1 Antibiotic Interpretation SANDHYA Status Urine Culture - [facility] Testing performed at [facility] Urine Culture - FRMCCiprofloxacin S F O:ENTFAC Isolated Urine Culture - [facility] [place] Count Organism: 1.1 Antibiotic Interpretation SANDHYA Status Urine Culture - [facility] Testing performed at [facility] Performing Lab:see note ML - [facility] LB SEE REPORT - 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 ECG 12 lead Reviewed date:12/08/2024 03:28:41 PM Interpretation: Performing Lab: Notes/Report: Source Facility: [place] [address] [place] [address] Electrocardiograph Report Signed Patient: JUAN GARCIA MR#: [id number] : 1990 Acct:[id number] Age/Sex: 34 / F ADM Date: 12/07/24 Loc: ER Attending Dr: Ordering Physician: Ronda Fernandez Date of Service: 12/07/24 Procedure(s): ECG 12 lead Accession Number(s): [id number] cc: [facility] Test Date: 2024-12-07 Pat Name: JUAN GARCIA Department: Room: - 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 Measurements Intervals [place] Rate: 64 P: 72 WV: 128 QRS: 84 QRSD: 84 T: 46 QT: 428 QTc: 438 Interpretive Statements 1100 Sinus rhythm 9110 normal ECG Compared to ECG 11/21/2024 11:00:20 No significant changes Electronically Signed On 12-07-2024 19:20:01 EDT by JAMES HODGES M.D. Dictated By: JAMES HODGES Signed By: 12/07/24 192 DD/ 1418 TD/TT: Suction Plate Roller Hand:XR chest 1V Reviewed date:12/07/2024 04:07:08 PM Interpretation: Performing Lab: Notes/Report: Source Facility: [place] [address] XRay Report Signed Patient: JUAN GARCIA MR#: [id number] : 1990 Acct:[id number] Age/Sex: 34 / F ADM Date: 12/07/24 Loc: ER Attending Dr: Ordering Physician: Ronda Fernandez Date of Service: 12/07/24 Procedure(s): XR chest 1V Accession Number(s): [id number] cc: Britt Alas M.D.; Ronda Fernandez [place] [address] Patient Name: JUAN GARCIA MRN: [id number] date: 1990 Sex: F Assigned Patient Location: ER Current Patient Location: ER Accession/Order Number: [id number] Exam Date: 12/07/2024 15:15 Report Date: 12/07/2024 [...] Hutchinson M.D. 12/07/2024 3:58 PM Dictation Location: [place] [address] Electronically authenticated by: [id number] Y Date: 12/07/2024 15:58 Dictated By: Roddy Hutchinson M.D. Signed By: 12/07/24 1601 DD/ 1558 TD/TT: Suction Plate Roller Hand:CT angio chest Reviewed date:12/07/2024 04:58:20 PM Interpretation: Performing Lab: Notes/Report: Source Facility: [place] [address] CT Scan Report Signed Patient: JUAN GARCIA MR#: [id number] : 1990 Acct:[id number] Age/Sex: 34 / F ADM Date: 12/07/24 Loc: ER Attending Dr: Ordering Physician: Ronda Fernandez Date of Service: 12/07/24 Procedure(s): CT angio chest Accession Number(s): [id number] cc: Britt Alas M.D. [place] [id number] Patient Name: JUAN GARCIA MRN: [id number] date: 1990 Sex: F Assigned Patient Location: ER Current Patient Location: ER Accession/Order Number: [id number] Exam Date: 12/07/2024 15:42 Report Date: 12/07/2024 [...] Lundberg M.D. 12/07/2024 4:38 PM Dictation Location: [place] [address] Electronically authenticated by: [id number] Y Date: 12/07/2024 16:38 Dictated By: Tio Lundberg M.D. 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 Measurements Intervals [place] Rate: 72 P: 69 WV: 124 QRS: 81 QRSD: 82 T: 37 QT: 412 QTc: 436 Interpretive Statements 1100 Sinus rhythm 9110 normal ECG Compared to ECG 12/07/2024 14:18:31 No significant changes Electronically Signed On 12-07-2024 19:20:04 EDT by JAMES HODGES M.D. Dictated By: JAMES HODGES Signed By: 12/07/241919 DD/ 55 TD/TT: Suction Plate Roller Hand:Troponin I High Sensitivity Reviewed date:12/09/2024 03:18:43 PM Interpretation: Performing Lab: Notes/Report: [facility] ,Troponin I High Sensitivity4.44.0-51.3 pg/mL CUT-OFF [...] CLINICAL INFORMATION. Performing Lab:see noteML - [facility] LBCBC AUTO DIFF Reviewed date:12/17/2024 01:47:56 PM Interpretation: Performing Lab: Notes/Report: [facility] ,White Blood Count9.74.0-11.0 10 3/uLRed Blood Count4.244.20-5.40 10 6/uL Tqscxmxxrk79.212.0-16.0 g/qSRhjseqofmu71.936.0-48.0 %Mean Corpuscular Ltqbwy63.0 81.0-99.0 fLMean Corpuscular Hdcuvlnpni84.826.7-34.0 pgMean Corpuscular HGB Conc 33.129.9-35.2 g/dLRed Cell Distribution Width15.111.0-15.0 %Platelet Ftcts219 150-450 10 3/uLMean Platelet Vwtbsv54.79.5-13.5 fLNeutrophils Percent Auto65.8 43.0-75.0 %Lymphocytes Percent Auto27.320.5-60.0 %Monocytes Percent Auto5.41.7- 12.0 %Eosinophils Percent Auto0.70.9-7.0 %Basophils Percent Auto0.50.2-2.0 % Immature Granulocytes Pct Auto0.30.0-0.5 %Neutrophils Absolute Auto6.41.4-6.5 10 3/uLLymphocytes Absolute Auto2.71.2-3.8 10 3/uLMonocytes Absolute Auto0.50.3- 0.8 10 3/uLEosinophils Absolute Auto0.10.0-0.7 10 3/uLBasophils Absolute Auto0.1 0.0-0.1 10 3/uLImmature Granulocytes Abs Auto0.030.00-0.03 10 3/uLPerforming Lab:see noteML - [facility] LBLIPASE Reviewed date:12/17/2024 01:47:56 PM Interpretation: Performing Lab: Notes/Report: [facility] ,Pzystj56.016.0-77.0 U/LPerforming Lab:see noteML - [facility] LB LIVER PROFILE Reviewed date:12/17/2024 01:47:56 PM Interpretation: Performing Lab: Notes/Report: [facility] ,Bilirubin Total0.30.2-1.0 mg/dLBilirubin Direct0.10.0-0.2 mg/dLAspartate Amino Gzouxomoyul9356-01 U/LAlanine Mrvnoqnksbpffipe3562-20 U/LAlkaline Vlgmiarikjy04 46-116 U/LTotal Protein7.06.4-8.2 g/dLAlbumin Level3.83.4-5.0 g/dLGlobulin3.2 Albumin Globulin Ratio1.2Performing Lab:see noteML - [facility] LB Troponin I High Sensitivity Reviewed date:12/17/2024 01:47:56 PM Interpretation: Performing Lab: Notes/Report: [facility] ,Troponin I High Sensitivity4.14.0-51.3 pg/mL CUT-OFF POINTS [...] CLINICAL INFORMATION. Performing Lab:see noteML - [facility] LBECG 12 lead Reviewed date:12/17/2024 01:47:56 PM Interpretation: Performing Lab: Notes/Report: Source Facility: [facility]-[address] [place] [address] Electrocardiograph Report Signed Patient: JUAN GARCIA MR#: [id number] : 1990 Acct:[id number] Age/Sex: 34 / F ADM Date: 12/16/24 Loc: ER Attending Dr: Ordering Physician: Leslie Terrazas M.D. 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 Measurements Intervals [place] Rate: 84 P: 73 WV: 130 QRS: 77 QRSD: 78 T: 70 QT: 408 QTc: 483 Interpretive Statements 1100 Sinus rhythm 1470 with occasional supraventricular premature complexes 8304 Long QTc interval 9150 abnormal ECG Compared to ECG 12/08/2024 20:53:42 QTc has lengthened Electronically Signed On 12-17-2024 9:41:36 EST by JAMES HODGES M.D. Dictated By: JAMES HODGES Signed By: 12/17/24 0941 DD/ 8345 TD/TT: Suction Plate Roller Hand:Troponin I High Sensitivity Reviewed date:12/17/2024 01:47:56 PM Interpretation: Performing Lab: Notes/Report: [facility] ,Troponin I High Sensitivity5.64.0-51.3 pg/mL CUT-OFF [...] CLINICAL INFORMATION. Performing Lab:see noteML - [facility] LBXR chest 1V Reviewed date:12/17/2024 01:47:56 PM Interpretation: Performing Lab: Notes/Report: Source Facility: [facility]-[address] [place] [address] [place] [address] XRay Report Signed Patient: JUAN GARCIA MR#: [id number] : 1990 Acct:[id number] Age/Sex: 34 / F ADM Date: 12/16/24 Loc: ER Attending Dr: Ordering Physician: Leslie Terrazas M.D. Date of Service: 12/16/24 Procedure(s): XR chest 1V Accession Number(s): [id number] cc: Britt Alas M.D.; Leslie Terrazas M.D. [place] [address] Patient Name: JUAN GARCIA MRN: [facility]:[id number] date: 1990 Sex: F Assigned Patient Location: ED.MAIN Current Patient Location: ED.MAIN Accession/Order Number: [id number] Exam Date: 12/16/2024 22:50 Report Date: 12/17/2024 [...] Lundberg M.D. 12/17/2024 7:48 AM Dictation Location: [place] [address] Electronically authenticated by: [id number] Y Date: 12/17/2024 07:48 Dictated By: Tio Lundberg M.D. Signed By: 12/17/24 0750 DD/ 0748 TD/TT: Suction Plate Roller Hand:CBC AUTO DIFF Reviewed date:12/27/2024 07:03:43 PM Interpretation: Performing Lab: Notes/Report: [facility] ,White Blood Count5.44.0-11.0 10 3/uLRed Blood Count3.494.20-5.40 10 6/uL Ecqtgmembs75.712.0-16.0 g/rTPlsiqqpmtj43.536.0-48.0 %Mean Corpuscular Ieudwc39.1 81.0-99.0 fLMean Corpuscular Fjsyltfckd18.726.7-34.0 pgMean Corpuscular HGB Conc 32.929.9-35.2 g/dLRed Cell Distribution Width16.311.0-15.0 %Platelet Pzzum959 150-450 10 3/uLMean Platelet Hpqprk16.09.5-13.5 fLNeutrophils Percent Auto70.9 43.0-75.0 %Lymphocytes Percent Auto21.420.5-60.0 %Monocytes Percent Auto4.51.7- 12.0 %Eosinophils Percent Auto2.60.9-7.0 %Basophils Percent Auto0.40.2-2.0 % Immature Granulocytes Pct Auto0.20.0-0.5 %Neutrophils Absolute Auto3.81.4-6.5 10 3/uLLymphocytes Absolute Auto1.21.2-3.8 10 3/uLMonocytes Absolute Auto0.20.3- 0.8 10 3/uLEosinophils Absolute Auto0.10.0-0.7 10 3/uLBasophils Absolute Auto0.0 0.0-0.1 10 3/uLImmature Granulocytes Abs Auto0.010.00-0.03 10 3/uLPerforming Lab:see noteML - [facility] LBPROF 14(COMP METB) Reviewed date:12/27/2024 07:03:43 PM Interpretation: Performing Lab: Notes/Report: [facility] ,Agtoys463968-338 mmol/LPotassium3.73.5-5.1 mmol/BFkvshnlf34409-403 mmol/LCarbon Bmaelze87.421.0-32.0 mmol/LAnion Gap9.1Jrbwljv2743-000 mg/dLBlood Urea Nitrogen 11.07.0-18.0 mg/dLCreatinine0.670.55-1.02 mg/dLEstimated GFR ( [place]>60 >=60 mL/min/1.73m 2Estimated GFR (Non- Caroline>60>=60 mL/min/1.73m 2BUN Creatinine Ratio16.4Lmaoxgj2.78.5-10.1 mg/dLBilirubin Total0.30.2-1.0 mg/dL Aspartate Amino Uvnejvpupui4992-82 U/LAlanine Lljftajwrxqgvfwy0453-08 U/L Alkaline Mcklqmefeqb4455-260 U/LTotal Protein6.36.4-8.2 g/dLAlbumin Level3.33.4- 5.0 g/dLGlobulin3.0Albumin Globulin Ratio1.1Performing Lab:see noteML - [facility] LBCBC AUTO DIFF Reviewed date:01/09/2025 04:04:44 PM Interpretation: Performing Lab: Notes/Report: [facility] ,White Blood Count2.44.0-11.0 10 3/uLRed Blood Count3.584.20-5.40 10 6/uL Xuvhwupovd78.012.0-16.0 g/qEFetfbsfyyb24.736.0-48.0 %Mean Corpuscular Hvblkp26.1 81.0-99.0 fLMean Corpuscular Xtwrjjfjnc91.726.7-34.0 pgMean Corpuscular HGB Conc 32.629.9-35.2 g/dLRed Cell Distribution Width15.611.0-15.0 %Platelet Wdmdq640 150-450 10 3/uLMean Platelet Ymhafb45.59.5-13.5 fLPerforming Lab:see noteML - [facility] LBCT abdomen pelvis w con Reviewed date:01/09/2025 04:04:44 PM Interpretation: Performing Lab: Notes/Report: Source Facility: [facility]-[address] [place] [address] CT Scan Report Signed Patient: JUAN GARCIA MR#: [id number] : 1990 Acct:[id number] Age/Sex: 34 / F ADM Date: 01/09/25 Loc: ER Attending Dr: Ordering Physician: Leslie Terrazas M.D. Date of Service: 01/09/25 Procedure(s): CT abdomen pelvis w con Accession Number(s): [id number] cc: Britt Alas M.D. [place] [address] Patient Name: JUAN GARCIA MRN: [id number] date: 1990 Sex: F Assigned Patient Location: ER Current Patient Location: ED.MAIN Accession/Order Number: [id number] Exam Date: 01/09/2025 11:53 Report Date: 01/09/2025 12:19 At the request of: LESLIE TERRAZAS MD Procedure: CT abdomen pelvis w con CT ABDOMEN AND PELVIS WITH CONTRAST COMPARISON: 12/27/2024 CLINICAL DATA: Abdominal pain with nausea and vomiting. Constipation. History of small bowel obstruction. Spiral images were obtained through the abdomen and pelvis following 100 mL of Omnipaque 300. This CT exam was performed using one or more following dose reduction techniques: Automated exposure control, adjustment of the mA and/or kV according to patient size, or use of iterative reconstruction technique. Limited cuts through the lung bases show minor dependent atelectasis. Multiple small scattered hepatic hypodensities are again seen suggesting cysts. The gallbladder surgically absent. There is slight biliary prominence. No common duct stones are noted. The spleen, pancreas and adrenal glands show no acute findings. There are symmetric renal nephrograms, without hydronephrosis. A potential punctate stone is again seen at the lower pole right kidney. The abdominal aorta is normal caliber. No enlarged lymph nodes or ascites are seen. There are postoperative changes of bariatric surgery. The small bowel loops show no significant distention however there are loops containing air. There is air and stool along the colon. The bony structures are intact. Images through the pelvis show nondistended small bowel. There is prior appendectomy. There is stool at the cecum and air and stool at the distal colon. No diverticular disease is noted. The uterus is surgically absent. Urinary bladder shows no CT abnormalities. No ascites is seen. CT/CT abdomen pelvis w con IMPRESSION: HEPATIC CYSTS. MILD BILIARY PROMINENCE WHICH IS LIKELY SECONDARY TO PREVIOUS CHOLECYSTECTOMY. NO OBSTRUCTIVE UROPATHY. NO EVIDENCE OF BOWEL OBSTRUCTION. MILD TO MODERATE COLONIC STOOL. Impression dictated by: Maricruz Hutchinson M.D. 01/09/2025 12:19 PM Dictation Location: [place] [address] Electronically authenticated by: [id number] Y Date: 01/09/2025 12:19 Dictated By: Maricruz Hutchinson M.D. Signed By: 01/09/25 1222 DD/ 1219 TD/TT: Suction Plate Roller Hand:CBC AUTO DIFF Reviewed date:01/18/2025 06:19:09 PM Interpretation: Performing Lab: Notes/Report: [facility] ,White Blood Count3.74.0-11.0 10 3/uLRed Blood Count3.494.20-5.40 10 6/uL Bhrshdqbux56.112.0-16.0 g/jUEarbtddtrs48.036.0-48.0 %Mean Corpuscular Ojwtkz56.6 81.0-99.0 fLMean Corpuscular Lcbsimsfdi49.826.7-34.0 pgMean Corpuscular HGB Conc 33.629.9-35.2 g/dLRed Cell Distribution Width16.411.0-15.0 %Platelet Kvwpg380 150-450 10 3/uLMean Platelet Nppnjk28.09.5-13.5 fLNeutrophils Percent Auto51.6 43.0-75.0 %Lymphocytes Percent Auto37.320.5-60.0 %Monocytes Percent Auto8.71.7- 12.0 %Eosinophils Percent Auto1.60.9-7.0 %Basophils Percent Auto0.80.2-2.0 % Immature Granulocytes Pct Auto0.00.0-0.5 %Neutrophils Absolute Auto1.91.4-6.5 10 3/uLLymphocytes Absolute Auto1.41.2-3.8 10 3/uLMonocytes Absolute Auto0.30.3- 0.8 10 3/uLEosinophils Absolute Auto0.10.0-0.7 10 3/uLBasophils Absolute Auto0.0 0.0-0.1 10 3/uLImmature Granulocytes Abs Auto0.000.00-0.03 10 3/uLPerforming Lab:see noteML - [facility] LBLIPASE Reviewed date:01/19/2025 11:55:38 AM Interpretation: Performing Lab: Notes/Report: [facility] ,Wjskiu45.016.0-77.0 U/LPerforming Lab:see note - [facility] LB MAGNESIUM Reviewed date:01/19/2025 11:55:38 AM Interpretation: Performing Lab: Notes/Report: [facility] ,Magnesium1.81.8-2.4 mg/dLPerforming Lab:see note - [facility] LB PHOSPHORUS Reviewed date:01/19/2025 11:55:38 AM Interpretation: Performing Lab: Notes/Report: [facility] ,Phosphorus1.42.6-4.7 mg/dLRESULTS CALLED TO Vic Jonesforminjama Lab:see note - [facility] LBPROF 14(COMP METB) Reviewed date:01/19/2025 11:55:38 AM Interpretation: Performing Lab: Notes/Report: [facility] ,Jhvosh862251-856 mmol/LPotassium3.93.5-5.1 mmol/DDpxbbzsa20950-198 mmol/LCarbon Kvelxvk89.121.0-32.0 mmol/LAnion Gap9.5Apyvcde0277-997 mg/dLBlood Urea Nitrogen 9.07.0-18.0 mg/dLCreatinine0.600.55-1.02 mg/dLEstimated GFR ( Shelby>60 >=60 mL/min/1.73m 2Estimated GFR (Non- Caroline>60>=60 mL/min/1.73m 2BUN Creatinine Ratio15.0Zsqlfut9.58.5-10.1 mg/dLBilirubin Total0.20.2-1.0 mg/dL Aspartate Amino Yaqaowuctty0592-81 U/LAlanine Ntcrqshbupryobas9431-68 U/L Alkaline Sivhzptdlrb64033-576 U/LTotal Protein5.86.4-8.2 g/dLAlbumin Level3.2 3.4-5.0 g/dLGlobulin2.6Albumin Globulin Ratio1.2Performing Lab:see noteML - [facility] LBHCG Qualitative* Reviewed date:01/19/2025 11:55:38 AM Interpretation: Performing Lab: Notes/Report: [facility] ,HCG QualitativeNEGATIVENEGATIVEPerforming Lab:see noteML - [facility] LBCBC AUTO DIFF Reviewed date:01/31/2024 02:12:13 PM Interpretation: Performing Lab: Notes/Report: [facility] ,White Blood Count5.34.0-11.0 10 3/uLRed Blood Count3.804.20-5.40 10 6/uL Tmqzycldos08.712.0-16.0 g/kXZofdylmvoj45.436.0-48.0 %Mean Corpuscular Ubtsxf21.8 81.0-99.0 fLMean Corpuscular Tvwskompwj98.826.7-34.0 pgMean Corpuscular HGB Conc 32.129.9-35.2 g/dLRed Cell Distribution Width15.911.0-15.0 %Platelet Eeiyd537 150-450 10 3/uLMean Platelet Ugmswc58.79.5-13.5 fLNeutrophils Percent Auto78.1 43.0-75.0 %Lymphocytes Percent Auto18.420.5-60.0 %Monocytes Percent Auto2.31.7- 12.0 %Eosinophils Percent Auto0.40.9-7.0 %Basophils Percent Auto0.60.2-2.0 % Immature Granulocytes Pct Auto0.20.0-0.5 %Neutrophils Absolute Auto4.11.4-6.5 10 3/uLLymphocytes Absolute Auto1.01.2-3.8 10 3/uLMonocytes Absolute Auto0.10.3- 0.8 10 3/uLEosinophils Absolute Auto0.00.0-0.7 10 3/uLBasophils Absolute Auto0.0 0.0-0.1 10 3/uLImmature Granulocytes Abs Auto0.010.00-0.03 10 3/uLPerforming Lab:see noteML - [facility] LBFERRITIN Reviewed date:01/31/2024 02:12:13 PM Interpretation: Performing Lab: Notes/Report: [facility] ,Pgkqhvsv99.08.0-252.0 ng/mLPerforming Lab:see noteML - [facility] LB MAGNESIUM Reviewed date:01/31/2024 02:12:13 PM Interpretation: Performing Lab: Notes/Report: [facility] ,Magnesium1.61.8-2.4 mg/dLPerforming Lab:see noteML - [facility] LB PHOSPHORUS Reviewed date:01/31/2024 02:12:13 PM Interpretation: Performing Lab: Notes/Report: [facility] ,Phosphorus3.72.6-4.7 mg/dLPerforming Lab:see noteML - [facility] LB CBC AUTO DIFF Reviewed date:01/23/2025 04:11:19 PM Interpretation: Performing Lab: Notes/Report: [facility] ,White Blood Count3.64.0-11.0 10 3/uLRed Blood Count3.714.20-5.40 10 6/uL Emtfazqoqx58.712.0-16.0 g/zKDuskedwdhq24.236.0-48.0 %Mean Corpuscular Clyfks57.9 81.0-99.0 fLMean Corpuscular Xvnqpgjbck26.526.7-34.0 pgMean Corpuscular HGB Conc 33.229.9-35.2 g/dLRed Cell Distribution Width15.911.0-15.0 %Platelet Iwads230 150-450 10 3/uLMean Platelet Upnldy20.59.5-13.5 fLNeutrophils Percent Auto46.7 43.0-75.0 %Lymphocytes Percent Auto43.420.5-60.0 %Monocytes Percent Auto7.61.7- 12.0 %Eosinophils Percent Auto1.70.9-7.0 %Basophils Percent Auto0.60.2-2.0 % Immature Granulocytes Pct Auto0.00.0-0.5 %Neutrophils Absolute Auto1.71.4-6.5 10 3/uLLymphocytes Absolute Auto1.51.2-3.8 10 3/uLMonocytes Absolute Auto0.30.3- 0.8 10 3/uLEosinophils Absolute Auto0.10.0-0.7 10 3/uLBasophils Absolute Auto0.0 0.0-0.1 10 3/uLImmature Granulocytes Abs Auto0.000.00-0.03 10 3/uLPerforming Lab:see noteML - [facility] LBLACTATE or LACTIC ACID Reviewed date:01/23/2025 04:11:19 PM Interpretation: Performing Lab: Notes/Report: [facility] ,Lactate/Lactic Acid0.60.4-2.0 mmol/LPerforming Lab:see note - [facility] LBPROF CHEM 8 (BAS METB) Reviewed date:01/23/2025 04:11:19 PM Interpretation: Performing Lab: Notes/Report: [facility] ,Iitaac160520-397 mmol/LPotassium3.83.5-5.1 mmol/UPddvqkdz69428-602 mmol/LCarbon Vocfzlb50.721.0-32.0 mmol/LAnion Gap9.7Zcwuznx9351-445 mg/dLBlood Urea Nitrogen 8.07.0-18.0 mg/dLCreatinine0.550.55-1.02 mg/dLEstimated GFR ( Shelby>60 >=60 mL/min/1.73m 2Estimated GFR (Non- Caroline>60>=60 mL/min/1.73m 2BUN Creatinine Ratio14.0Xipiybm4.18.5-10.1 mg/dLPerforming Lab:see noteML - [facility] LBTroponin I High Sensitivity Reviewed date:01/23/2025 04:11:19 PM Interpretation: Performing Lab: Notes/Report: [facility] ,Troponin I High Sensitivity<4.04.0-51.3 pg/mL CUT-OFF [...] CLINICAL INFORMATION. Performing Lab:see noteML - [facility] LBECG 12 lead Reviewed date:01/23/2025 08:36:18 PM Interpretation: Performing Lab: Notes/Report: Source Facility: [facility]-[address] [place] [address] Electrocardiograph Report Signed Patient: JUAN GARCIA MR#: [id number] : 1990 Acct:[id number] Age/Sex: 34 / F ADM Date: 01/22/25 Loc: ER Attending Dr: Ordering Physician: Gideon Espinoza Date of Service: 01/22/25 Procedure(s): ECG 12 lead Accession Number(s): [id number] cc: [facility] Test Date: 2025-01-22 Pat Name: JUAN GARCIA Department: Room: - 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 Measurements Intervals [place] Rate: 69 P: 68 WV: 154 QRS: 71 QRSD: 84 T: 43 QT: 412 QTc: 431 Interpretive Statements 1100 Sinus rhythm 9110 normal ECG Compared to ECG 12/16/2024 22:45:19 QT has shortened Electronically Signed On 01-23-2025 20:00:21 EST by JAMES HODGES M.D. Dictated By: JAMES HODGES Signed By: 01/23/251999 DD/ 12 TD/TT: Suction Plate Roller Hand:PROF Hickey(COMP METB) Reviewed date:01/31/2024 02:12:13 PM Interpretation: Performing Lab: Notes/Report: [facility] ,Ioqyxq101827-013 mmol/LPotassium4.03.5-5.1 mmol/EEujfuimp67392-367 mmol/LCarbon Iukexcv15.821.0-32.0 mmol/LAnion Gap15.3Sdgvjyw53958-214 mg/dLBlood Urea Nitrogen9.07.0-18.0 mg/dLCreatinine1.010.55-1.02 mg/dLEstimated GFR ( Shelby>60>=60 mL/min/1.73m 2Estimated GFR (Non- Caroline>60>=60 mL/min/1.73m 2BUN Creatinine Ratio8.2Ofcgcrc5.28.5-10.1 mg/dLBilirubin Total0.30.2-1.0 mg/dL Aspartate Amino Lktdwfhuudm2142-02 U/LAlanine Yixupdugggutygfo4197-11 U/L Alkaline Kppuytnlqms1704-139 U/LTotal Protein6.26.4-8.2 g/dLAlbumin Level3.33.4- 5.0 g/dLGlobulin2.9Albumin Globulin Ratio1.1Performing Lab:see noteML - [facility] LBMAGNESIUM Reviewed date:01/23/2025 04:11:18 PM Interpretation: Performing Lab: Notes/Report: [facility] ,Magnesium1.81.8-2.4 mg/dLPerforming Lab:see noteML - [facility] LB PHOSPHORUS Reviewed date:01/23/2025 04:11:18 PM Interpretation: Performing Lab: Notes/Report: [facility] ,Phosphorus1.72.6-4.7 mg/dLPerforming Lab:see noteML - [facility] LB PROF 14(COMP METB) Reviewed date:01/23/2025 04:11:18 PM Interpretation: Performing Lab: Notes/Report: [facility] ,Okhqni603730-523 mmol/LPotassium3.93.5-5.1 mmol/TBofyhhds66621-179 mmol/LCarbon Etbdojl21.521.0-32.0 mmol/LAnion Gap9.4Tvlfmom6471-074 mg/dLBlood Urea Nitrogen 6.07.0-18.0 mg/dLCreatinine0.470.55-1.02 mg/dLEstimated GFR ( Shelby>60 >=60 mL/min/1.73m 2Estimated GFR (Non- Caroline>60>=60 mL/min/1.73m 2BUN Creatinine Ratio12.5Fmvxwmk4.98.5-10.1 mg/dLBilirubin Total0.20.2-1.0 mg/dL Aspartate Amino Rmjahbsluyo5706-59 U/LAlanine Emexbfqyuhbdrjid1449-98 U/L Alkaline Emgygcvaogc6223-781 U/LTotal Protein5.96.4-8.2 g/dLAlbumin Level3.33.4- 5.0 g/dLGlobulin2.6Albumin Globulin Ratio1.3Performing Lab:see noteML - [facility] LBXR abdomen 1V Reviewed date:01/23/2025 04:11:18 PM Interpretation: Performing Lab: Notes/Report: Source Facility: [place] [address] XRay Report Signed Patient: JUAN GARCIA MR#: [id number] : 1990 Acct:[id number] Age/Sex: 34 / F ADM Date: 01/23/25 Loc: ER Attending Dr: Ordering Physician: Barbara Willoughby Date of Service: 01/23/25 Procedure(s): XR abdomen 1V Accession Number(s): [id number] cc: Britt Alas M.D.; Barbara Willoughby [place] [address] Patient Name: JUAN GARCIA MRN: [id number] date: 1990 Sex: F Assigned Patient Location: ED.MAIN Current Patient Location: ED.MAIN Accession/Order Number: [id number] Exam Date: 01/23/2025 13:05 Report Date: 01/23/2025 13:20 At the request of: BARBARA WILLOUGHBY MD Procedure: XR abdomen 1V XR abdomen 1V 01/23/2025 1:09 PM SIGNS AND SYMPTOMS: sbo ? PROTOCOL: Frontal radiograph of the abdomen and pelvis COMPARISON: 01/23/2025 FINDINGS: There is evidence of prior cholecystectomy. Vascular calcifications are noted in the pelvis. There is a nonobstructive bowel gas pattern. There is a moderate amount stool within the colon, decreasing when compared to the prior CT. XR/XR abdomen 1V IMPRESSION: No bowel obstruction. There is a moderate amount of stool within the colon decreasing prior exam. Impression dictated by: Roddy Hutchinson M.D. 01/23/2025 1:20 PM Dictation Location: [place] [address] Electronically authenticated by: [id number] Y Date: 01/23/2025 13:20 Dictated By: Roddy Hutchinson M.D. Signed By: 01/23/25 1323 DD/ 1320 TD/TT: Suction Plate Roller Hand:XR abdomen min 2V Reviewed date:01/23/2025 04:11:18 PM Interpretation: Performing Lab: Notes/Report: Source Facility: [place] [address] XRay Report Signed Patient: JUAN GARCIA MR#: [id number] : 1990 Acct:[id number] Age/Sex: 34 / F ADM Date: 01/22/25 Loc: ER Attending Dr: Ordering Physician: Gideon Espinoza Date of Service: 01/22/25 Procedure(s): XR abdomen min 2V Accession Number(s): [id number] cc: Gideon Espinoza; Britt Alas M.D. [place] [address] Patient Name: JUAN GARCIA MRN: [facility]:[id number] date: 1990 Sex: F Assigned Patient Location: ER Current Patient Location: ED.MAIN Accession/Order Number: [id number] Exam Date: 01/22/2025 23:30 Report Date: 01/23/2025 00:15 At the request of: GIDEON ESPINOZA MD Procedure: XR abdomen min 2V X-rays of the abdomen INDICATION: Vomiting COMPARISON: 08/02/2024 FINDINGS: Visualized lung bases are clear. Moderate colonic stool burden. Nonspecific nonobstructive bowel gas pattern. No radiopaque calcifications overlying the renal shadows. XR/XR abdomen min 2V IMPRESSION:: Moderate stool burden. No convincingly evidence of bowel obstruction. Impression dictated by: Tio Lundberg M.D. 01/23/2025 12:15 AM Dictation Location: [place] [address] Electronically authenticated by: [id number] Y Date: 01/23/2025 00:15 Dictated By: Tio Lundberg M.D. Signed By: 01/23/2516 DD/ TD/TT: Suction Plate Roller Hand:Transferrin Reviewed date:02/01/2024 12:16:29 PM Interpretation: Performing Lab: Notes/Report: [facility] ,Nnorywqktqu794250-499 mg/dL Performed at: [address] [id number] Business Continuity Management Director: Daron Almanza PhD, Phone: [phone] Performing Lab:see noteLC - [facility] LBMAGNESIUM Reviewed date:01/24/2025 12:53:40 PM Interpretation: Performing Lab: Notes/Report: [facility] ,Magnesium1.71.8-2.4 mg/dLPerforming Lab:see noteML - [facility] LB PHOSPHORUS Reviewed date:01/24/2025 12:53:40 PM Interpretation: Performing Lab: Notes/Report: [facility] ,Phosphorus2.42.6-4.7 mg/dLPerforming Lab:see noteML - [facility] LB CBC AUTO DIFF Reviewed date:02/16/2024 03:19:17 PM Interpretation: Performing Lab: Notes/Report: [facility] ,White Blood Count7.74.0-11.0 10 3/uLRed Blood Count3.914.20-5.40 10 6/uL Qglqaiemjx22.512.0-16.0 g/iNIswjayprvu71.336.0-48.0 %Mean Corpuscular Dgqyek30.4 81.0-99.0 fLMean Corpuscular Hmisfqoepd89.026.7-34.0 pgMean Corpuscular HGB Conc 33.529.9-35.2 g/dLRed Cell Distribution Width14.311.0-15.0 %Platelet Mklfa692 150-450 10 3/uLMean Platelet Vcmqyt14.39.5-13.5 fLNeutrophils Percent Auto83.0 43.0-75.0 %Lymphocytes Percent Auto13.620.5-60.0 %Monocytes Percent Auto2.71.7- 12.0 %Eosinophils Percent Auto0.30.9-7.0 %Basophils Percent Auto0.30.2-2.0 % Immature Granulocytes Pct Auto0.10.0-0.5 %Neutrophils Absolute Auto6.41.4-6.5 10 3/uLLymphocytes Absolute Auto1.01.2-3.8 10 3/uLMonocytes Absolute Auto0.20.3- 0.8 10 3/uLEosinophils Absolute Auto0.00.0-0.7 10 3/uLBasophils Absolute Auto0.0 0.0-0.1 10 3/uLImmature Granulocytes Abs Auto0.010.00-0.03 10 3/uLPerforming Lab:see noteML - [facility] LBCBC AUTO DIFF Reviewed date:03/29/2024 09:46:23 PM Interpretation: Performing Lab: Notes/Report: [facility] ,White Blood Count8.64.0-11.0 10 3/uLRed Blood Count3.734.20-5.40 10 6/uL Nqossghnbv04.712.0-16.0 g/qJIfjxaoejtg20.536.0-48.0 %Mean Corpuscular Pcsusl45.9 81.0-99.0 fLMean Corpuscular Lvxwhoddrx54.026.7-34.0 pgMean Corpuscular HGB Conc 34.829.9-35.2 g/dLRed Cell Distribution Width12.011.0-15.0 %Platelet Cpouq293 150-450 10 3/uLMean Platelet Jshssd72.89.5-13.5 fLNeutrophils Percent Auto87.8 43.0-75.0 %Lymphocytes Percent Auto10.220.5-60.0 %Monocytes Percent Auto1.61.7- 12.0 %Eosinophils Percent Auto0.00.9-7.0 %Basophils Percent Auto0.20.2-2.0 % Immature Granulocytes Pct Auto0.20.0-0.5 %Neutrophils Absolute Auto7.51.4-6.5 10 3/uLLymphocytes Absolute Auto0.91.2-3.8 10 3/uLMonocytes Absolute Auto0.10.3- 0.8 10 3/uLEosinophils Absolute Auto0.00.0-0.7 10 3/uLBasophils Absolute Auto0.0 0.0-0.1 10 3/uLImmature Granulocytes Abs Auto0.020.00-0.03 10 3/uLPerforming Lab:see note - [facility] LBMAGNESIUM Reviewed date:03/29/2024 09:46:23 PM Interpretation: Performing Lab: Notes/Report: [facility] ,Magnesium1.81.8-2.4 mg/dLPerforming Lab:see note - [facility] LB PROF 14(COMP METB) Reviewed date:03/29/2024 09:46:23 PM Interpretation: Performing Lab: Notes/Report: [facility] ,Fsnnui641001-418 mmol/LPotassium3.83.5-5.1 mmol/TVlndndyv94405-638 mmol/LCarbon Eldwxlv56.721.0-32.0 mmol/LAnion Gap13.8Lfgankn6814-178 mg/dLBlood Urea Jdnrswgf97.07.0-18.0 mg/dLCreatinine0.940.55-1.02 mg/dLEstimated GFR ( Shelby>60>=60 mL/min/1.73m 2Estimated GFR (Non- Caroline>60>=60 mL/min/1.73m 2BUN Creatinine Ratio13.8Hzquczv5.48.5-10.1 mg/dLBilirubin Total0.30.2-1.0 mg/dL Aspartate Amino Xvlxwiiwjdm6529-88 U/LAlanine Zghqdpknhkesflfj4233-88 U/L Alkaline Fofawwpxbuw4092-147 U/LTotal Protein6.46.4-8.2 g/dLAlbumin Level3.53.4- 5.0 g/dLGlobulin2.9Albumin Globulin Ratio1.2Performing Lab:see note - [facility] LBCBC AUTO DIFF (Not yet reviewed by provider) Interpretation: Performing Lab: Notes/Report: [facility] ,White Blood Count2.94.0-11.0 10 3/uLRed Blood Count3.724.20-5.40 10 6/uL Kdubbrqdgs20.912.0-16.0 g/wAWfganemoct35.036.0-48.0 %Mean Corpuscular Rhdjom13.1 81.0-99.0 fLMean Corpuscular Prwpykacyb90.026.7-34.0 pgMean Corpuscular HGB Conc 34.029.9-35.2 g/dLRed Cell Distribution Width15.311.0-15.0 %Platelet Hqxca818 150-450 10 3/uLMean Platelet Uagsmx19.49.5-13.5 fLNeutrophils Percent Auto56.7 43.0-75.0 %Lymphocytes Percent Auto33.020.5-60.0 %Monocytes Percent Auto8.21.7- 12.0 %Eosinophils Percent Auto1.40.9-7.0 %Basophils Percent Auto0.70.2-2.0 % Immature Granulocytes Pct Auto0.00.0-0.5 %Neutrophils Absolute Auto1.71.4-6.5 10 3/uLLymphocytes Absolute Auto1.01.2-3.8 10 3/uLMonocytes Absolute Auto0.20.3- 0.8 10 3/uLEosinophils Absolute Auto0.00.0-0.7 10 3/uLBasophils Absolute Auto0.0 0.0-0.1 10 3/uLImmature Granulocytes Abs Auto0.000.00-0.03 10 3/uLPerforming Lab:see noteML - [facility] LBECG 12 lead (Not yet reviewed by provider) Interpretation: Performing Lab: Notes/Report: Source Facility: [facility]-[address] [place] [address] [place] [address] Electrocardiograph Report Draft Patient: JUAN GARCIA MR#: [id number] : 1990 Acct:[id number] Age/Sex: 34 / F ADM Date: Loc: ER Attending Dr: Ordering Physician: Leslie Terrazas M.D. 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1990 Requested By: 1030 Order Number: [id number] Reading MD: Measurements Intervals [place] Rate: 84 P: 78 WV: 146 QRS: 79 QRSD: 80 T: 43 QT: 386 QTc: 426 Interpretive Statements 1100 Sinus rhythm 9110 normal ECG No previous ECG available for comparison Dictated By: Megan Saleh Signed By: DD/ TD/TT: Suction Plate Roller Hand:TSH Reviewed date:03/29/2024 09:46:23 PM Interpretation: Performing Lab: Notes/Report: [facility] ,Thyroid Stimulating Hormone0.6220.358-3.740 uIU/mLPerforming Lab:see noteML - [facility] LBCBC AUTO DIFF Reviewed date:03/30/2024 07:56:16 PM Interpretation: Performing Lab: Notes/Report: [facility] ,White Blood Count4.64.0-11.0 10 3/uLRed Blood Count3.644.20-5.40 10 6/uL Sefwcaxqos80.112.0-16.0 g/uOGbzebwxogn05.136.0-48.0 %Mean Corpuscular Chpovu81.2 81.0-99.0 fLMean Corpuscular Mpjntxnibh98.226.7-34.0 pgMean Corpuscular HGB Conc 33.529.9-35.2 g/dLRed Cell Distribution Width12.011.0-15.0 %Platelet Reyhb578 150-450 10 3/uLMean Platelet Gwydky52.09.5-13.5 fLNeutrophils Percent Auto84.8 43.0-75.0 %Lymphocytes Percent Auto13.320.5-60.0 %Monocytes Percent Auto1.31.7- 12.0 %Eosinophils Percent Auto0.00.9-7.0 %Basophils Percent Auto0.20.2-2.0 % Immature Granulocytes Pct Auto0.40.0-0.5 %Neutrophils Absolute Auto3.91.4-6.5 10 3/uLLymphocytes Absolute Auto0.61.2-3.8 10 3/uLMonocytes Absolute Auto0.10.3- 0.8 10 3/uLEosinophils Absolute Auto0.00.0-0.7 10 3/uLBasophils Absolute Auto0.0 0.0-0.1 10 3/uLImmature Granulocytes Abs Auto0.020.00-0.03 10 3/uLPerforming Lab:see noteML - [facility] LBMAGNESIUM Reviewed date:03/30/2024 07:56:16 PM Interpretation: Performing Lab: Notes/Report: [facility] ,Magnesium1.71.8-2.4 mg/dLPerforming Lab:see note - [facility] LB AMYLASE Reviewed date:06/21/2024 12:59:38 PM Interpretation: Performing Lab: Notes/Report: [facility] ,Cmvdnal8836-572 U/LPerforming Lab:see note - [facility] LBLIPASE Reviewed date:06/21/2024 12:59:38 PM Interpretation: Performing Lab: Notes/Report: [facility] ,Jpewnc68.016.0-77.0 U/LPerforming Lab:see noteML - [facility] LB LIVER PROFILE Reviewed date:06/21/2024 12:59:38 PM Interpretation: Performing Lab: Notes/Report: [facility] ,Bilirubin Total0.60.2-1.0 mg/dLBilirubin Direct0.20.0-0.2 mg/dLAspartate Amino Mwhxtlxbegf6369-61 U/LAlanine Mbjwdjpqeoanqxnz8083-39 U/LAlkaline Evdxejoosdo19 46-116 U/LTotal Protein6.76.4-8.2 g/dLAlbumin Level3.43.4-5.0 g/dLGlobulin3.3 Albumin Globulin Ratio1.0Performing Lab:see noteML - [facility] LB PROF CHEM 8 (BAS METB) Reviewed date:06/21/2024 12:59:38 PM Interpretation: Performing Lab: Notes/Report: [facility] ,Fahoex102412-320 mmol/LPotassium3.53.5-5.1 mmol/XCkviccty08535-102 mmol/LCarbon Yiweruy44.721.0-32.0 mmol/LAnion Gap14.6Bbbqepd26366-330 mg/dLBlood Urea Saepnosu81.07.0-18.0 mg/dLCreatinine0.740.55-1.02 mg/dLEstimated GFR ( [place]>60>=60 mL/min/1.73m 2Estimated GFR (Non- [place]>60>=60 mL/min/1.73m 2BUN Creatinine Ratio13.7Uyjsgtr0.78.5-10.1 mg/dLPerforming Lab:see noteML - [facility] LBHCG Qualitative* Reviewed date:06/21/2024 12:59:38 PM Interpretation: Performing Lab: Notes/Report: [facility] ,HCG QualitativeNEGATIVENEGATIVEPerforming Lab:see note - [facility] LBCBC AUTO DIFF Reviewed date:07/22/2024 05:16:36 PM Interpretation: Performing Lab: Notes/Report: [facility] ,White Blood Count6.44.0-11.0 10 3/uLRed Blood Count3.634.20-5.40 10 6/uL Urwbadwrpq69.812.0-16.0 g/cJEkhblwjemz00.336.0-48.0 %Mean Corpuscular Pftjla30.5 81.0-99.0 fLMean Corpuscular Viezhqomqy12.526.7-34.0 pgMean Corpuscular HGB Conc 34.429.9-35.2 g/dLRed Cell Distribution Width12.711.0-15.0 %Platelet Lswdm957 150-450 10 3/uLMean Platelet Nivbeg79.59.5-13.5 fLNeutrophils Percent Auto72.6 43.0-75.0 %Lymphocytes Percent Auto21.720.5-60.0 %Monocytes Percent Auto5.01.7- 12.0 %Eosinophils Percent Auto0.20.9-7.0 %Basophils Percent Auto0.30.2-2.0 % Immature Granulocytes Pct Auto0.20.0-0.5 %Neutrophils Absolute Auto4.71.4-6.5 10 3/uLLymphocytes Absolute Auto1.41.2-3.8 10 3/uLMonocytes Absolute Auto0.30.3- 0.8 10 3/uLEosinophils Absolute Auto0.00.0-0.7 10 3/uLBasophils Absolute Auto0.0 0.0-0.1 10 3/uLImmature Granulocytes Abs Auto0.010.00-0.03 10 3/uLPerforming Lab:see noteML - [facility] LBPROF CHEM 8 (BAS METB) Reviewed date:07/22/2024 05:16:36 PM Interpretation: Performing Lab: Notes/Report: [facility] ,Rkutfx198552-993 mmol/LPotassium3.93.5-5.1 mmol/EIzorkwgi53305-635 mmol/LCarbon Tposeoi33.121.0-32.0 mmol/LAnion Gap15.5Corkwdd7759-668 mg/dLBlood Urea Nitrogen8.07.0-18.0 mg/dLCreatinine0.680.55-1.02 mg/dLEstimated GFR ( Shelby>60>=60 mL/min/1.73m 2Estimated GFR (Non- Caroline>60>=60 mL/min/1.73m 2BUN Creatinine Ratio11.7Jrezwsv1.78.5-10.1 mg/dLPerforming Lab:see noteML - [facility] LBLIPASE Reviewed date:08/02/2024 05:29:08 PM Interpretation: Performing Lab: Notes/Report: [facility] ,Ujbzhs82.016.0-77.0 U/LPerforming Lab:see noteML - [facility] LBPROF 14(COMP METB) Reviewed date:08/02/2024 05:29:08 PM Interpretation: Performing Lab: Notes/Report: [facility] ,Zfdgdr273526-883 mmol/LPotassium3.63.5-5.1 mmol/UWliylxgd14732-953 mmol/LCarbon Wktikyp40.321.0-32.0 mmol/LAnion Gap15.1Bluklww8330-766 mg/dLBlood Urea Ktglynbo78.07.0-18.0 mg/dLCreatinine0.720.55-1.02 mg/dLEstimated GFR ( Shelby>60>=60 mL/min/1.73m 2Estimated GFR (Non- Caroline>60>=60 mL/min/1.73m 2BUN Creatinine Ratio15.7Trrgfiw4.58.5-10.1 mg/dLBilirubin Total0.40.2-1.0 mg/dL Aspartate Amino Aumuqmkglvr0060-87 U/LAlanine Sgzyytceitehgtvq1713-93 U/L Alkaline Ufxfzttzrnm3408-281 U/LTotal Protein6.66.4-8.2 g/dLAlbumin Level3.63.4- 5.0 g/dLGlobulin3.0Albumin Globulin Ratio1.2Performing Lab:see [facility] LBTroponin I High Sensitivity Reviewed date:08/02/2024 05:29:08 PM Interpretation: Performing Lab: Notes/Report: [facility] ,Troponin I High Sensitivity<4.04.0-51.3 pg/mL [...] DISTRIBUTION IN A REFERENCE POPULATION, Performing Lab:see [facility] LBHCG Qualitative Urine Reviewed date:08/02/2024 05:29:08 PM Interpretation: Performing Lab: Notes/Report: [facility] ,HCG Qualitative Urine*NEGATIVENEGATIVEPerforming Lab:see [facility] - [facility] LBXR acute abdomen series Reviewed date:08/02/2024 05:29:08 PM Interpretation: Performing Lab: Notes/Report: Source Facility: [facility]-[address] [place] [address] [place] [address] XRay Report Signed Patient: JUAN GARCIA MR#: [id number] : 1990 Acct:[id number] Age/Sex: 34 / F ADM Date: 08/02/24 Loc: ER Attending Dr: Ordering Physician: Massimo Damon Date of Service: 08/02/24 Procedure(s): XR acute abdomen series Accession Number(s): [id number] cc: Britt Alas M.D.; Massimo Damon [place] [id number] Patient Name: JUAN GARCIA MRN: [id number] date: 1990 Sex: F Assigned Patient Location: ER Current Patient Location: ER Accession/Order Number: [id number] Exam Date: 08/02/2024 09:12 Report Date: 08/02/2024 [...] Hutchinson M.D. 08/02/2024 9:19 AM Dictation Location: [place] [address] Electronically authenticated by: [id number] Y Date: 08/02/2024 09:19 Dictated By: Maricruz Hutchinson M.D. Signed By: 08/02/2422 DD/ 8 TD/TT: Suction Plate Roller Hand:VANESSA Reviewed date:08/02/2024 05:29:08 PM Interpretation: Performing Lab: Notes/Report: [facility] ,Hylxxw89.016.0-77.0 U/LPerforming Lab:see noteML - [facility] LB LACTATE or LACTIC ACID Reviewed date:08/02/2024 05:29:08 PM Interpretation: Performing Lab: Notes/Report: Y [facility] ,Lactate/Lactic Acid1.90.4-2.0 mmol/LPerforming Lab:see noteML - [facility] LBBLOOD CULTURE ID PANEL Reviewed date:08/16/2024 07:06:02 PM Interpretation: Performing Lab: Notes/Report: [facility] ,CTX-MNOT DETECTEDNOT DETECTEIMPNOT DETECTEDNOT DETECTEKPCNOT DETECTEDNOT DETECTEmcr-1NOT DETECTEDNOT DETECTEmecA/CNOT APPLICABLENOT DETECTEmecA/C and MREJ (MRSA)NOT APPLICABLENOT DETECTENDMNOT DETECTEDNOT YRSJFKZQPR-92-utjaFAB DETECTEDNOT DETECTEvanA/BNOT APPLICABLENOT DETECTEVIMNOT DETECTEDNOT DETECTE SourceBLDEnterococcus [...] neoformans/gattiiNOT DETECTEDNOT DETECTEPerforming Lab:see noteML - [facility] LBLACTATE or LACTIC ACID Reviewed date:08/15/2024 06:53:10 PM Interpretation: Performing Lab: Notes/Report: [facility] ,Lactate/Lactic Acid0.60.4-2.0 mmol/LPerforming Lab:see noteML - [facility] LBLIPASE Reviewed date:08/15/2024 06:53:11 PM Interpretation: Performing Lab: Notes/Report: [facility] ,Eitktq64.016.0-77.0 U/LPerforming Lab:see noteML - [facility] LBPROF 14(COMP METB) Reviewed date:08/15/2024 06:53:11 PM Interpretation: Performing Lab: Notes/Report: [facility] ,Wealqa535207-001 mmol/LPotassium3.83.5-5.1 mmol/DMvutvknn83121-469 mmol/LCarbon Jjasgih64.521.0-32.0 mmol/LAnion Gap15.9Ysvwnkr97113-361 mg/dLBlood Urea Tpksaydn79.07.0-18.0 mg/dLCreatinine0.610.55-1.02 mg/dLEstimated GFR ( Shelby>60>=60 mL/min/1.73m 2Estimated GFR (Non- Caroline>60>=60 mL/min/1.73m 2BUN Creatinine Ratio18.5Ihckonl2.28.5-10.1 mg/dLBilirubin Total0.60.2-1.0 mg/dL Aspartate Amino Mkplwndmjir7629-93 U/LAlanine Fmkunpsmicleypqk3019-70 U/L Alkaline Ebtjrttsklj20436-430 U/LTotal Protein6.26.4-8.2 g/dLAlbumin Level2.5 3.4-5.0 g/dLGlobulin3.7Albumin Globulin Ratio0.7Performing Lab:see noteML - [facility] LBUA (CLEAN or CATCH) CRAP SHOOTER or MICRO IF IND. Reviewed date:08/15/2024 06:53:11 PM Interpretation: Performing Lab: Notes/Report: [facility] ,Color UrineLT. YELLOWYELLOWClarity UrineCLEARCLEARSpecific [place] Urine1.010 1.005-1.025pH Urine6.05.0-9.0Protein UrineNEGATIVENEG/TRACE mg/dLGlucose Urine UANEGATIVENEGATIVE mg/dLBilirubin UrineNEGATIVENEGATIVEKetones Wykro11KEILMOKM mg/dLBlood UrineNEGATIVENEGATIVENitrite UrineNEGATIVENEGATIVEUrobilinogen Urine 0.20.2-1.0 EU/dLLeukocyte Esterase UrineNEGATIVENEGATIVEUrine Microscopic IndicatedNOPerforming Lab:see noteML - [facility] LBECG 12 lead Reviewed date:08/16/2024 07:06:02 PM Interpretation: Performing Lab: Notes/Report: Source Facility: [place] [address] Electrocardiograph Report Signed Patient: JUAN GARCIA MR#: [id number] : 1990 Acct:[id number] Age/Sex: 34 / F ADM Date: 08/15/24 Loc: ER Attending Dr: Ordering Physician: Domenica Romeo Date of Service: 08/15/24 Procedure(s): ECG 12 lead Accession Number(s): [id number] cc: [facility] Test Date: 2024-08-15 Pat Name: JUAN GARCIA Department: Room: - 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 Measurements Intervals [place] Rate: 82 P: 45 WV: 142 QRS: 75 QRSD: 84 T: 44 QT: 402 QTc: 440 Interpretive Statements 1100 Sinus rhythm 9110 normal ECG Compared to ECG 06/21/2024 11:24:35 No significant changes Electronically Signed On 08-16-2024 6:37:55 EDT by JAMES HODGES M.D. 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 [place] [address] Patient Name: JUAN GARCIA MRN: [id number] date: 1990 Sex: F Assigned Patient Location: ER Current Patient Location: ER Accession/Order Number: [id number] Exam Date: 08/15/2024 14:21 Report Date: 08/15/2024 14:22 At the request of: DOMENICA ROMEO ADVANCED CLINICAL SPECIALIST Procedure: XR chest 2V Chest 2 views [...] Jr., D.O. 08/15/2024 2:22 PM Dictation Location: [place] [address] Electronically authenticated by: [id number] Y Date: 08/15/2024 14:22 Dictated By: Cornel Medel M.D. Signed By: 08/15/24 1424 DD/ 1422 TD/TT: Suction Plate Roller Hand:BLOOD CULTURE ID PANEL Reviewed date:08/29/2024 05:13:56 PM Interpretation: Performing Lab: Notes/Report: [facility] ,CTX-MNOT DETECTEDNOT DETECTEIMPNOT DETECTEDNOT DETECTEKPCNOT DETECTEDNOT DETECTEmcr-1NOT DETECTEDNOT DETECTEmecA/CNOT APPLICABLENOT DETECTEmecA/C and MREJ (MRSA)NOT APPLICABLENOT DETECTENDMNOT DETECTEDNOT SSXWQQAIRO-94-tkgkDLV DETECTEDNOT DETECTEvanA/BNOT APPLICABLENOT DETECTEVIMNOT DETECTEDNOT DETECTE SourceBLOODEnterococcus [...] neoformans/gattiiNOT DETECTEDNOT DETECTEPerforming Lab:see noteML - [facility] LBLACTATE or LACTIC ACID Reviewed date:08/28/2024 06:06:36 PM Interpretation: Performing Lab: Notes/Report: [facility] ,Lactate/Lactic Acid1.40.4-2.0 mmol/LPerforming Lab:see noteML - [facility] LBLIPASE Reviewed date:08/28/2024 06:06:36 PM Interpretation: Performing Lab: Notes/Report: [facility] ,Jywhlr39.016.0-77.0 U/LPerforming Lab:see noteML - [facility] LBUA (CLEAN or CATCH) CRAP SHOOTER or MICRO IF IND. Reviewed date:08/28/2024 06:06:36 PM Interpretation: Performing Lab: Notes/Report: [facility] ,Color UrineLT. YELLOWYELLOWClarity UrineCLEARCLEARSpecific [place] Urine1.015 1.005-1.025pH Urine6.05.0-9.0Protein UrineNEGATIVENEG/TRACE mg/dLGlucose Urine UANEGATIVENEGATIVE mg/dLBilirubin UrineNEGATIVENEGATIVEKetones UrineNEGATIVE NEGATIVE mg/dLBlood UrineNEGATIVENEGATIVENitrite UrineNEGATIVENEGATIVE Urobilinogen Urine0.20.2-1.0 EU/dLLeukocyte Esterase UrineNEGATIVENEGATIVEUrine Microscopic IndicatedNOPerforming Lab:see noteML - [facility] LB Aerobe ID + Suscept Reviewed [...] SANDHYA Status Aerobe ID + SusceptPerformed at: [facility] Aerobe ID + Suscept Organism: Gram negative jeffery : O:GNR Isolated O:KLEBPN Isolated Organism: 1.2 Antibiotic Interpretation SANDHYA Status Aerobe ID + [id number] [place], [place] [id number] Aerobe ID + Suscept Organism: Gram negative jeffery : O:GNR Isolated O:KLEBPN Isolated Organism: 1.2 Antibiotic Interpretation SANDHYA Status Aerobe ID + SusceptLab Director: Daron Almanza PhD, Phone: [phone] Aerobe ID + Suscept Organism: Gram negative [...] LC - [facility] LB SEE REPORT - 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 Anaerobe Identification Only Reviewed date:09/04/2024 [...] WILL FOLLOW Anaerobe Identification OnlyPerformed at: - [facility] Anaerobe Identification Only WILL FOLLOW Anaerobe Identification [id number] [place], [place] [id number] Anaerobe Identification Only WILL FOLLOW Anaerobe Identification OnlyLab Director: Daron Almanza PhD, Phone: [phone] Anaerobe Identification Only WILL FOLLOW Performing Lab:see note LC - [facility] LB SEE REPORT - 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 XR chest 2V Reviewed date:08/28/2024 06:06:36 PM Interpretation: Performing Lab: Notes/Report: Source Facility: [place] [address] [place] [address] XRay Report Signed Patient: JUAN GARCIA MR#: [id number] : 1990 Acct:[id number] Age/Sex: 34 / F ADM Date: 08/28/24 Loc: ER Attending Dr: Ordering Physician: Domenica Romeo Date of Service: 08/28/24 Procedure(s): XR chest 2V Accession Number(s): [id number] cc: Domenica Romeo; Britt Alas M.D. [place] [address] Patient Name: JUAN GARCIA MRN: [id number] date: 1990 Sex: F Assigned Patient Location: ER Current Patient Location: ER Accession/Order Number: [id number] Exam Date: 08/28/2024 16:39 Report Date: 08/28/2024 16:40 At the request of: DOMENICA ROMEO ADVANCED CLINICAL SPECIALIST Procedure: XR chest 2V XR chest 2V [...] Hutchinson M.D. 08/28/2024 4:40 PM Dictation Location: [place] [address] Electronically authenticated by: [id number] Y Date: 08/28/2024 16:40 Dictated By: Roddy Hutchinson M.D. Signed By: 08/28/24 1642 DD/ 1640 TD/TT: Suction Plate Roller Hand:CT abdomen pelvis w con Reviewed date:08/28/2024 06:06:36 PM Interpretation: Performing Lab: Notes/Report: Source Facility: [place] [address] [place] [address] CT Scan Report Signed Patient: JUAN GARCIA MR#: [id number] : 1990 Acct:[id number] Age/Sex: 34 / F ADM Date: 08/28/24 Loc: ER Attending Dr: Ordering Physician: Domenica Romeo Date of Service: 08/28/24 Procedure(s): CT abdomen pelvis w con Accession Number(s): [id number] cc: Britt Alas M.D. [place] [id number] Patient Name: JUAN GARCIA MRN: [facility]:[id number] date: 1990 Sex: F Assigned Patient Location: ER Current Patient Location: ER Accession/Order Number: [id number] Exam Date: 08/28/2024 16:40 Report Date: 08/28/2024 16:46 At the request of: DOMENICA ROMEO ADVANCED CLINICAL SPECIALIST Procedure: CT abdomen pelvis w con CT [...] Hutchinson M.D. 08/28/2024 4:46 PM Dictation Location: [place] [address] Electronically authenticated by: [id number] Y Date: 08/28/2024 16:46 Dictated By: Roddy Hutchinson M.D. Signed By: 08/28/24 1649 DD/ 45 TD/TT: Suction Plate Roller Hand:Aerobe ID + Suscept Reviewed date:09/04/2024 07:21:01 PM [...] LC - [facility] LB SEE REPORT - 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 CBC AUTO DIFF Reviewed date:08/29/2024 05:13:55 PM Interpretation: Performing Lab: Notes/Report: [facility] ,White Blood Count5.84.0-11.0 10 3/uLRed Blood Count3.554.20-5.40 10 6/uL Pdalsohpyk38.912.0-16.0 g/rFBbovwuleov98.536.0-48.0 %Mean Corpuscular Utzdgy30.5 81.0-99.0 fLMean Corpuscular Cdzoscsbfi30.726.7-34.0 pgMean Corpuscular HGB Conc 33.529.9-35.2 g/dLRed Cell Distribution Width13.911.0-15.0 %Platelet Dtyxk763 150-450 10 3/uLMean Platelet Xswhbs18.29.5-13.5 fLNeutrophils Percent Auto60.6 43.0-75.0 %Lymphocytes Percent Auto26.520.5-60.0 %Monocytes Percent Auto10.21.7- 12.0 %Eosinophils Percent Auto1.20.9-7.0 %Basophils Percent Auto1.20.2-2.0 % Immature Granulocytes Pct Auto0.30.0-0.5 %Neutrophils Absolute Auto3.51.4-6.5 10 3/uLLymphocytes Absolute Auto1.51.2-3.8 10 3/uLMonocytes Absolute Auto0.60.3- 0.8 10 3/uLEosinophils Absolute Auto0.10.0-0.7 10 3/uLBasophils Absolute Auto0.1 0.0-0.1 10 3/uLImmature Granulocytes Abs Auto0.020.00-0.03 10 3/uLPerforming Lab:see noteML - [facility] LBMAGNESIUM Reviewed date:08/29/2024 05:13:55 PM Interpretation: Performing Lab: Notes/Report: [facility] ,Magnesium1.71.8-2.4 mg/dLPerforming Lab:see noteML - [facility] LB PHOSPHORUS Reviewed date:08/29/2024 05:13:55 PM Interpretation: Performing Lab: Notes/Report: [facility] ,Phosphorus2.82.6-4.7 mg/dLPerforming Lab:see note - [facility] LB PROF 14(COMP METB) Reviewed date:08/29/2024 05:13:56 PM Interpretation: Performing Lab: Notes/Report: [facility] ,Ssrpzo648168-371 mmol/LPotassium3.63.5-5.1 mmol/YJsodlweu79706-492 mmol/LCarbon Jyuehci91.221.0-32.0 mmol/LAnion Gap13.5Oxmhicf6096-340 mg/dLBlood Urea Nitrogen6.07.0-18.0 mg/dLCreatinine0.520.55-1.02 mg/dLEstimated GFR ( Shelby>60>=60 mL/min/1.73m 2Estimated GFR (Non- Caroline>60>=60 mL/min/1.73m 2BUN Creatinine Ratio11.6Aericay5.98.5-10.1 mg/dLBilirubin Total0.40.2-1.0 mg/dL Aspartate Amino Kjuueoybzjv9080-18 U/LAlanine Nrfthcufikompqlt1354-66 U/L Alkaline Cgfaacfxfei1126-129 U/LTotal Protein5.46.4-8.2 g/dLAlbumin Level2.33.4- 5.0 g/dLGlobulin3.1Albumin Globulin Ratio0.7Performing Lab:see noteML - [facility] LBECG 12 lead Reviewed date:08/30/2024 05:17:51 PM Interpretation: Performing Lab: Notes/Report: Source Facility: [place] [address] Electrocardiograph Report Signed Patient: JUAN GARCIA MR#: [id number] : 1990 Acct:[id number] Age/Sex: 34 / F ADM Date: 08/28/24 Loc: [place] 218-[address]: Kal Wilson M.D. Ordering Physician: Kal Wilson M.D. 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 Signed By: 08/30/24 1330 DD/ 0528 TD/TT: Suction Plate Roller Hand:Blood Culture 1 Reviewed date:09/04/2024 07:21:01 PM Interpretation: Performing Lab: Notes/Report: LEFT UPPER ARM [facility] ,Blood Culture 1See Below For Report Blood Culture 1 NG5D NO GROWTH AT 5 DAYS.^NO GROWTH AT 5 DAYS. Performing Lab:see note - [facility] LBBlood Culture 2 Reviewed date:09/04/2024 07:21:01 PM Interpretation: Performing Lab: Notes/Report: KUMARI LINE [facility] ,Blood Culture 2See Below For Report NG5D NO GROWTH AT 5 DAYS.^NO GROWTH AT 5 DAYS. Blood Culture 2 Performing Lab:see note - [facility] LBMAGNESIUM Reviewed date:09/17/2024 07:49:06 PM Interpretation: Performing Lab: Notes/Report: [facility] ,Magnesium1.71.8-2.4 mg/dLPerforming Lab:see [facility] LB PROF CHEM 8 (BAS METB) Reviewed date:09/17/2024 07:49:06 PM Interpretation: Performing Lab: Notes/Report: [facility] ,Jmzukn814389-744 mmol/LPotassium3.63.5-5.1 mmol/DNtqcrgmp39715-604 mmol/LCarbon Ahzeejt79.521.0-32.0 mmol/LAnion Gap14.8Jxyrssw5116-216 mg/dLBlood Urea Nitrogen6.07.0-18.0 mg/dLCreatinine0.660.55-1.02 mg/dLEstimated GFR ( Shelby>60>=60 mL/min/1.73m 2Estimated GFR (Non- Caroline>60>=60 mL/min/1.73m 2BUN Creatinine Ratio9.9Tykglps6.48.5-10.1 mg/dLPerforming Lab:see noteML - [facility] LBUA RANDOM W or MICROSCOPIC Reviewed date:09/17/2024 07:49:06 PM Interpretation: Performing Lab: Notes/Report: [facility] ,Color UrineYELLOWYELLOWClarity UrineCLEARCLEARSpecific [place] Urine1.020 1.005-1.025pH Urine6.05.0-9.0Protein UrineNEGATIVENEG/TRACE mg/dLGlucose Urine UANEGATIVENEGATIVE mg/dLBilirubin UrineNEGATIVENEGATIVEKetones UrineTRACE NEGATIVE mg/dLBlood UrineNEGATIVENEGATIVENitrite UrineNEGATIVENEGATIVE Urobilinogen Urine0.20.2-1.0 EU/dLLeukocyte Esterase UrineNEGATIVENEGATIVEWBC UrineNONE SEENNONE SEEN #/HPFRBC Urine0-20-2 #/HPFBacteria UrineTRACENONE SEEN #/HPFMucus UrineNONE SEENNONE SEENSquamous Epithelial Cell UrineMANYNONE/RARE #/LPFCrystals Seen?None SeenNone Seen #/HPFCast Seen?NONE SEENNONE SEEN #/LPF Urine Culture IndicatedNOPerforming Lab:see noteML - [facility] LBCBC AUTO DIFF Reviewed date:09/20/2024 12:30:47 PM Interpretation: Performing Lab: Notes/Report: [facility] ,White Blood Count5.24.0-11.0 10 3/uLRed Blood Count4.094.20-5.40 10 6/uL Ifbcvxdbod13.112.0-16.0 g/iKRzlowiddtc76.436.0-48.0 %Mean Corpuscular Zjrjov51.4 81.0-99.0 fLMean Corpuscular Ielftvipfu06.626.7-34.0 pgMean Corpuscular HGB Conc 32.429.9-35.2 g/dLRed Cell Distribution Width14.011.0-15.0 %Platelet Pwvgp127 150-450 10 3/uLMean Platelet Jtijtt22.39.5-13.5 fLNeutrophils Percent Auto55.3 43.0-75.0 %Lymphocytes Percent Auto34.820.5-60.0 %Monocytes Percent Auto6.41.7- 12.0 %Eosinophils Percent Auto2.50.9-7.0 %Basophils Percent Auto0.80.2-2.0 % Immature Granulocytes Pct Auto0.20.0-0.5 %Neutrophils Absolute Auto2.91.4-6.5 10 3/uLLymphocytes Absolute Auto1.81.2-3.8 10 3/uLMonocytes Absolute Auto0.30.3- 0.8 10 3/uLEosinophils Absolute Auto0.10.0-0.7 10 3/uLBasophils Absolute Auto0.0 0.0-0.1 10 3/uLImmature Granulocytes Abs Auto0.010.00-0.03 10 3/uLPerforming Lab:see noteML - [facility] LBCRP Reviewed date:09/20/2024 12:30:47 PM Interpretation: Performing Lab: Notes/Report: [facility] ,C Reactive Protein<0.50<=0.50 mg/dLPerforming Lab:see noteML - [facility] LBLACTATE or LACTIC ACID Reviewed date:09/20/2024 12:30:47 PM Interpretation: Performing Lab: Notes/Report: [facility] ,Lactate/Lactic Acid0.90.4-2.0 mmol/LPerforming Lab:see noteML - [facility] LBPROF CHEM 8 (BAS METB) Reviewed date:09/20/2024 12:30:47 PM Interpretation: Performing Lab: Notes/Report: [facility] ,Ldizmi164436-741 mmol/LPotassium3.73.5-5.1 mmol/LEneuihjs35147-733 mmol/LCarbon Pjweqwb72.921.0-32.0 mmol/LAnion Gap12.7Ybeefvi8051-226 mg/dLBlood Urea Nitrogen7.07.0-18.0 mg/dLCreatinine0.630.55-1.02 mg/dLEstimated GFR ( [place]>60>=60 mL/min/1.73m 2Estimated GFR (Non- Caroline>60>=60 mL/min/1.73m 2BUN Creatinine Ratio11.0Ddurfeh2.98.5-10.1 mg/dLPerforming Lab:see noteML - [facility] LBUA Micro, reflex to culture Reviewed date:09/20/2024 12:30:47 PM Interpretation: Performing Lab: Notes/Report: [facility] ,Color UrineLT. YELLOWYELLOWClarity UrineCLEARCLEARSpecific [place] Urine1.010 1.005-1.025pH Urine6.55.0-9.0Protein UrineNEGATIVENEG/TRACE mg/dLGlucose Urine UANEGATIVENEGATIVE mg/dLBilirubin UrineNEGATIVENEGATIVEKetones UrineNEGATIVE NEGATIVE mg/dLBlood UrineNEGATIVENEGATIVENitrite UrineNEGATIVENEGATIVE Urobilinogen Urine0.20.2-1.0 EU/dLLeukocyte Esterase UrineNEGATIVENEGATIVEWBC UrineNONE SEENNONE SEEN #/HPFRBC UrineNONE SEEN0-2 #/HPFBacteria UrineNONE SEEN NONE SEEN #/HPFMucus UrineNONE SEENNONE SEENSquamous Epithelial Cell UrineRARE NONE/RARE #/LPFCrystals Seen?None SeenNone Seen #/HPFCast Seen?NONE SEENNONE SEEN #/LPFUrine Culture IndicatedNOPerforming Lab:see noteML - [facility] LBCBC AUTO DIFF Reviewed date:10/24/2024 02:11:49 PM Interpretation: Performing Lab: Notes/Report: [facility] ,White Blood Count3.64.0-11.0 10 3/uLRed Blood Count3.754.20-5.40 10 6/uL Wlgjfvthse21.412.0-16.0 g/bFOksoifyaed66.436.0-48.0 %Mean Corpuscular [place]80.1 81.0-99.0 fLMean Corpuscular Kcaemhjpkc43.426.7-34.0 pgMean Corpuscular HGB Conc 34.129.9-35.2 g/dLRed Cell Distribution Width13.711.0-15.0 %Platelet Zxkbz290 150-450 10 3/uLMean Platelet Upmlzv20.79.5-13.5 fLNeutrophils Percent Auto54.6 43.0-75.0 %Lymphocytes Percent Auto36.420.5-60.0 %Monocytes Percent Auto7.31.7- 12.0 %Eosinophils Percent Auto1.10.9-7.0 %Basophils Percent Auto0.60.2-2.0 % Immature Granulocytes Pct Auto0.00.0-0.5 %Neutrophils Absolute Auto2.01.4-6.5 10 3/uLLymphocytes Absolute Auto1.31.2-3.8 10 3/uLMonocytes Absolute Auto0.30.3- 0.8 10 3/uLEosinophils Absolute Auto0.00.0-0.7 10 3/uLBasophils Absolute Auto0.0 0.0-0.1 10 3/uLImmature Granulocytes Abs Auto0.000.00-0.03 10 3/uLPerforming Lab:see note - [facility] LBBlood Culture 1 Reviewed date:10/31/2024 05:15:55 PM Interpretation: Performing Lab: Notes/Report: [facility] ,Blood Culture 1See Below For Report NG5D NO GROWTH AT 5 DAYS.^NO GROWTH AT 5 DAYS. Blood Culture 1 Performing Lab:see note - [facility] LBBlood Culture 2 Reviewed date:10/31/2024 05:15:55 PM Interpretation: Performing Lab: Notes/Report: AEROBIC BOTTLE ONLY [facility] ,Blood Culture 2See Below For Report NG5D NO GROWTH AT 5 DAYS.^NO GROWTH AT 5 DAYS. Blood Culture 2 Performing Lab:see [facility] LBPROF 14(COMP METB) Reviewed date:10/30/2024 01:16:30 PM Interpretation: Performing Lab: Notes/Report: The [facility] ,Gksdvk345974-980 mmol/LPotassium3.83.5-5.1 mmol/CJqdtmjbg18734-106 mmol/LCarbon Nqdaoah15.821.0-32.0 mmol/LAnion Gap13.5Wdvebgi7569-249 mg/dLBlood Urea Nitrogen4.07.0-18.0 mg/dLCreatinine0.650.55-1.02 mg/dLEstimated GFR ( Shelby>60>=60 mL/min/1.73m 2Estimated GFR (Non- Caroline>60>=60 mL/min/1.73m 2BUN Creatinine Ratio6.5Ikwkdjo8.18.5-10.1 mg/dLBilirubin Total0.30.2-1.0 mg/dL Aspartate Amino Loofmylcxwl3189-55 U/LAlanine Uvomyfuzaybwjgzb4671-32 U/L Alkaline Rtcnrtlgfki0715-813 U/LTotal Protein6.36.4-8.2 g/dLAlbumin Level3.33.4- 5.0 g/dLGlobulin3.0Albumin Globulin Ratio1.1Performing Lab:see note - [facility] LBTroponin I High Sensitivity Reviewed date:10/30/2024 01:16:30 PM Interpretation: Performing Lab: Notes/Report: [facility] ,Troponin I High Hvejlistcxt09.84.0-51.3 pg/mL CUT-OFF POINTS HAVE BEEN ESTABLISHED BASED [...] OTHER DIAGNOSTIC AND CLINICAL INFORMATION. Performing Lab:see [facility] LBHCG Qualitative* Reviewed date:10/30/2024 01:16:30 PM Interpretation: Performing Lab: Notes/Report: [facility] ,HCG QualitativeNEGATIVENEGATIVEPerforming Lab:see [facility] LBECG 12 lead Reviewed date:10/30/2024 05:59:55 PM Interpretation: Performing Lab: Notes/Report: Source Facility: [place] [address] [place] [address] Electrocardiograph Report Signed Patient: JUAN GARCIA MR#: [id number] : 1990 Acct:[id number] Age/Sex: 34 / F ADM Date: 10/30/24 Loc: ER Attending Dr: Ordering Physician: Barbara Willoughby Date of Service: 10/30/24 Procedure(s): ECG 12 lead Accession Number(s): [id number] cc: [facility] Test Date: 2024-10-30 Pat Name: JUAN GARCIA Department: Room: - Gender: Female [employer]: : 1990 Requested By: [id number] Order Number: [id number] Reading MD: KATIE ALTAMIRANO Measurements Intervals [place] Rate: 82 P: 67 WV: 146 QRS: 69 QRSD: 82 T: 84 QT: 404 QTc: 443 Interpretive Statements 1100 Sinus rhythm 9110 normal ECG Compared to ECG 10/30/2024 12:56:06 No significant changes Electronically Signed On 10-30-2024 17:00:49 EDT by KATIE ALTAMIRANO Dictated By: Katie Altamirano M.D. Signed By: 10/30/24 170 DD/ 1531 TD/TT: Suction Plate Roller Hand:PROF Hickey(COMP METB) Reviewed date:11/19/2024 02:14:57 PM Interpretation: Performing Lab: Notes/Report: [facility] ,Cnhihc490067-262 mmol/LPotassium3.73.5-5.1 mmol/YOobufodd50012-272 mmol/LCarbon Tvdpomq73.021.0-32.0 mmol/LAnion Gap12.0Japkkwb7158-205 mg/dLBlood Urea Fpikevqt58.07.0-18.0 mg/dLCreatinine0.700.55-1.02 mg/dLEstimated GFR ( Shelby>60>=60 mL/min/1.73m 2Estimated GFR (Non- Caroline>60>=60 mL/min/1.73m 2BUN Creatinine Ratio15.5Fftrwos3.18.5-10.1 mg/dLBilirubin Total0.40.2-1.0 mg/dL Aspartate Amino Mcdhowzghbr2112-37 U/LAlanine Nssuczbxemawzncp5319-35 U/L Alkaline Ksuuyhlffma4575-009 U/LTotal Protein6.46.4-8.2 g/dLAlbumin Level3.23.4- 5.0 g/dLGlobulin3.2Albumin Globulin Ratio1.0Performing Lab:see noteML - [facility] LBTroponin I High Sensitivity Reviewed date:11/19/2024 02:14:57 PM Interpretation: Performing Lab: Notes/Report: [facility] ,Troponin I High Sensitivity4.44.0-51.3 pg/mL CUT-OFF [...] CLINICAL INFORMATION. Performing Lab:see noteML - [facility] LBTroponin I High Sensitivity Reviewed date:11/19/2024 05:07:43 PM Interpretation: Performing Lab: Notes/Report: [facility] ,Troponin I High Sensitivity<4.04.0-51.3 pg/mL CUT-OFF [...] CLINICAL INFORMATION. Performing Lab:see noteML - [facility] LBPROF CHEM 8 (BAS METB) Reviewed date:12/07/2024 04:07:08 PM Interpretation: Performing Lab: Notes/Report: [facility] ,Ydtyvv161652-213 mmol/LPotassium4.03.5-5.1 mmol/AJqtzjror92019-242 mmol/LCarbon Oybigwy70.621.0-32.0 mmol/LAnion Gap12.9Goqiezb7154-041 mg/dLBlood Urea Nitrogen7.07.0-18.0 mg/dLCreatinine0.860.55-1.02 mg/dLEstimated GFR ( Shelby>60>=60 mL/min/1.73m 2Estimated GFR (Non- Caroline>60>=60 mL/min/1.73m 2BUN Creatinine Ratio8.0Sesydsf4.28.5-10.1 mg/dLPerforming Lab:see noteML - [facility] LBUA (CLEAN or CATCH) MICROSCOPIC IF INDICATE Reviewed date:12/07/2024 04:07:08 PM Interpretation: Performing Lab: Notes/Report: [facility] ,Color UrineDK ORANGEYELLOWClarity UrineCLEARCLEARSpecific [place] Urine1.025 1.005-1.025pH UrineCOLOR INTERFERENCE5.0-9.0Protein UrineCOLOR INTERFERENCE NEG/TRACE mg/dLGlucose Urine UACOLOR INTERFERENCENEGATIVE mg/dLBilirubin Urine COLOR INTERFERENCENEGATIVEKetones UrineCOLOR INTERFERENCENEGATIVE mg/dLBlood UrineCOLOR INTERFERENCENEGATIVENitrite UrineCOLOR INTERFERENCENEGATIVE Urobilinogen UrineCOLOR INTERFERENCE0.2-1.0 EU/dLLeukocyte Esterase UrineCOLOR INTERFERENCENEGATIVEUrine Microscopic IndicatedYESPerforming Lab:see noteML - [facility] LBURINE MICROSCOPIC ONLY Reviewed date:12/07/2024 04:07:08 PM Interpretation: Performing Lab: Notes/Report: [facility] ,WBC Urine5-10NONE SEEN #/HPFRBC Urine2-50-2 #/HPFBacteria UrineTRACENONE SEEN #/HPFMucus UrineNONE SEENNONE SEENSquamous Epithelial Cell UrineFEWNONE/RARE #/LPFCrystals Seen?None SeenNone Seen #/HPFCast Seen?NONE SEENNONE SEEN #/LPF Urine Culture IndicatedYES-FRMCPerforming Lab:see noteML - [facility] LBTroponin I High Sensitivity Reviewed date:12/07/2024 04:07:08 PM Interpretation: Performing Lab: Notes/Report: [facility] ,Troponin I High Sensitivity4.44.0-51.3 pg/mL CUT-OFF [...] CLINICAL INFORMATION. Performing Lab:see noteML - [facility] LBTroponin I High Sensitivity Reviewed date:12/07/2024 04:58:20 PM Interpretation: Performing Lab: Notes/Report: [facility] ,Troponin I High Sensitivity4.04.0-51.3 pg/mL CUT-OFF [...] CLINICAL INFORMATION. Performing Lab:see noteML - [facility] LBBNP Reviewed date:12/09/2024 03:18:43 PM Interpretation: Performing Lab: Notes/Report: [facility] ,NT Pro B Type Natriuretic Pept79.0<=450.0 pg/mLPerforming Lab:see noteML - [facility] LBCBC AUTO DIFF Reviewed date:12/09/2024 03:18:43 PM Interpretation: Performing Lab: Notes/Report: [facility] ,White Blood Count4.14.0-11.0 10 3/uLRed Blood Count3.544.20-5.40 10 6/uL Binmtvdthg87.512.0-16.0 g/xSXirjjqzbih62.736.0-48.0 %Mean Corpuscular Kuzjct05.5 81.0-99.0 fLMean Corpuscular Qrmmtkwlhm18.726.7-34.0 pgMean Corpuscular HGB Conc 33.129.9-35.2 g/dLRed Cell Distribution Width13.911.0-15.0 %Platelet Jdltn430 150-450 10 3/uLMean Platelet Qgjeby04.49.5-13.5 fLNeutrophils Percent Auto48.3 43.0-75.0 %Lymphocytes Percent Auto38.720.5-60.0 %Monocytes Percent Auto8.21.7- 12.0 %Eosinophils Percent Auto4.10.9-7.0 %Basophils Percent Auto0.70.2-2.0 % Immature Granulocytes Pct Auto0.00.0-0.5 %Neutrophils Absolute Auto2.01.4-6.5 10 3/uLLymphocytes Absolute Auto1.61.2-3.8 10 3/uLMonocytes Absolute Auto0.30.3- 0.8 10 3/uLEosinophils Absolute Auto0.20.0-0.7 10 3/uLBasophils Absolute Auto0.0 0.0-0.1 10 3/uLImmature Granulocytes Abs Auto0.000.00-0.03 10 3/uLPerforming Lab:see noteML - [facility] LBPROF CHEM 8 (BAS METB) Reviewed date:12/09/2024 03:18:43 PM Interpretation: Performing Lab: Notes/Report: [facility] ,Kvqqip538413-604 mmol/LPotassium4.03.5-5.1 mmol/XIqawhijo93157-114 mmol/LCarbon Cokzina04.621.0-32.0 mmol/LAnion Gap14.6Utphrsq4538-102 mg/dLBlood Urea Nitrogen7.07.0-18.0 mg/dLCreatinine0.830.55-1.02 mg/dLEstimated GFR ( Shelby>60>=60 mL/min/1.73m 2Estimated GFR (Non- Caroline>60>=60 mL/min/1.73m 2BUN Creatinine Ratio8.3Qccdega7.28.5-10.1 mg/dLPerforming Lab:see noteML - [facility] LBTroponin I High Sensitivity Reviewed date:12/09/2024 03:18:43 PM Interpretation: Performing Lab: Notes/Report: [facility] ,Troponin I High Sensitivity5.54.0-51.3 pg/mL CUT-OFF POINTS [...] CLINICAL INFORMATION. Performing Lab:see noteML - [facility] LBECG 12 lead Reviewed date:12/09/2024 03:18:43 PM Interpretation: Performing Lab: Notes/Report: Source Facility: [place] [address] [place] [address] Electrocardiograph Report Signed Patient: JUAN GARCIA MR#: [id number] : 1990 Acct:[id number] Age/Sex: 34 / F ADM Date: 12/08/24 Loc: ER Attending Dr: Ordering Physician: Gideon Espinoza Date of Service: 12/08/24 Procedure(s): ECG 12 lead Accession Number(s): [id number] cc: [facility] Test Date: 2024-12-08 Pat Name: JUAN GARCIA Department: Room: - Gender: Female [employer]: : 1990 Requested By: 1031 Order Number: [id number] Reading MD: JAMES HODGES M.D. Measurements Intervals [place] Rate: 69 P: 90 WV: 154 QRS: 83 QRSD: 84 T: 69 QT: 406 QTc: 426 Interpretive Statements 1100 Sinus rhythm 9110 normal ECG Compared to ECG 12/07/2024 14:56:19 No significant changes Electronically Signed On 12-09-2024 7:02:28 EDT by JAEMS HODGES M.D. 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 [place] [address] Patient Name: JUAN GARCIA MRN: [id number] date: 1990 Sex: F Assigned Patient Location: ER Current Patient Location: ER Accession/Order Number: [id number] Exam Date: 12/08/2024 21:42 Report Date: 12/08/2024 [...] Lundberg M.D. 12/08/2024 10:00 PM Dictation Location: [place] [address] Electronically authenticated by: [id number] Y Date: 12/08/2024 22:00 Dictated By: Tio Lundberg M.D. Signed By: 12/08/242201 DD/ 99 TD/TT: Suction Plate Roller Hand:AMYLASE Reviewed date:12/17/2024 01:47:56 PM Interpretation: Performing Lab: Notes/Report: [facility] ,Vlbmzwn3560-396 U/LPerforming Lab:see noteML - [facility] LBCT abdomen pelvis wo con Reviewed date:12/27/2024 07:03:43 PM Interpretation: Performing Lab: Notes/Report: Source Facility: [facility]-[address] [place] [address] [place] [address] CT Scan Report Signed Patient: JUAN GARCIA MR#: [id number] : 1990 Acct:[id number] Age/Sex: 34 / F ADM Date: 12/27/24 Loc: ER Attending Dr: Ordering Physician: Otilio Klein Date of Service: 12/27/24 Procedure(s): CT abdomen pelvis wo con Accession Number(s): [id number] cc: Britt Alas M.D. [place] [address] Patient Name: JUAN GARCIA MRN: [id number] date: 1990 Sex: F Assigned Patient Location: ER Current Patient Location: ER Accession/Order Number: [id number] Exam Date: 12/27/2024 11:50 Report Date: 12/27/2024 [...] Hutchinson M.D. 12/27/2024 12:39 PM Dictation Location: [place] [address] Electronically authenticated by: [id number] Y Date: 12/27/2024 12:39 Dictated By: Maricruz Hutchinson M.D. Signed By: 12/27/24 1242 DD/ 1239 TD/TT: Suction Plate Roller Hand:AMYLASE Reviewed date:01/09/2025 04:04:44 PM Interpretation: Performing Lab: Notes/Report: [facility] ,Fqcqzem1443-946 U/LPerforming Lab:see noteML - [facility] LBLIPASE Reviewed date:01/09/2025 04:04:44 PM Interpretation: Performing Lab: Notes/Report: [facility] ,Otypre01.016.0-77.0 U/LPerforming Lab:see noteML - [facility] LB LIVER PROFILE Reviewed date:01/09/2025 04:04:44 PM Interpretation: Performing Lab: Notes/Report: [facility] ,Bilirubin Total0.30.2-1.0 mg/dLBilirubin Direct0.10.0-0.2 mg/dLAspartate Amino Suskqtyghll1987-20 U/LAlanine Ukvpohxamrlwxwfa2563-94 U/LAlkaline Pjlrnqmxdii80 46-116 U/LTotal Protein6.26.4-8.2 g/dLAlbumin Level3.43.4-5.0 g/dLGlobulin2.8 Albumin Globulin Ratio1.2Performing Lab:see noteML - [facility] LB PROF CHEM 8 (BAS METB) Reviewed date:01/09/2025 04:04:44 PM Interpretation: Performing Lab: Notes/Report: [facility] ,Oqphei828591-674 mmol/LPotassium3.93.5-5.1 mmol/DPteabzde97669-452 mmol/LCarbon Gcpwlop34.621.0-32.0 mmol/LAnion Gap13.5Rjxacpp6729-156 mg/dLBlood Urea Nitrogen7.07.0-18.0 mg/dLCreatinine0.690.55-1.02 mg/dLEstimated GFR ( Shelby>60>=60 mL/min/1.73m 2Estimated GFR (Non- Caroline>60>=60 mL/min/1.73m 2BUN Creatinine Ratio10.2Ciskopy1.08.5-10.1 mg/dLPerforming Lab:see noteML - [facility] LBUA RANDOM W or MICROSCOPIC Reviewed date:01/19/2025 11:55:38 AM Interpretation: Performing Lab: Notes/Report: [facility] ,Color UrineLT. YELLOWYELLOWClarity UrineCLEARCLEARSpecific [place] Urine1.010 1.005-1.025pH Urine6.55.0-9.0Protein UrineNEGATIVENEG/TRACE mg/dLGlucose Urine UANEGATIVENEGATIVE mg/dLBilirubin UrineNEGATIVENEGATIVEKetones UrineNEGATIVE NEGATIVE mg/dLBlood UrineTRACE-INEGATIVENitrite UrineNEGATIVENEGATIVE Urobilinogen Urine0.20.2-1.0 EU/dLLeukocyte Esterase UrineNEGATIVENEGATIVEWBC Urine0-2NONE SEEN #/HPFRBC UrineNONE SEEN0-2 #/HPFBacteria UrineNONE SEENNONE SEEN #/HPFMucus UrineNONE SEENNONE SEENSquamous Epithelial Cell UrineRARE NONE/RARE #/LPFCrystals Seen?None SeenNone Seen #/HPFCast Seen?NONE SEENNONE SEEN #/LPFUrine Culture IndicatedNOPerforming Lab:see noteML - [facility] LBCT abdomen pelvis w con Reviewed date:01/19/2025 11:55:38 AM Interpretation: Performing Lab: Notes/Report: Source Facility: [facility]-[address] [place] [address] [place] [address] CT Scan Report Signed Patient: JUAN GARCIA MR#: [id number] : 1990 Acct:[id number] Age/Sex: 34 / F ADM Date: 01/18/25 Loc: ER Attending Dr: Ordering Physician: Asya Waters Date of Service: 01/18/25 Procedure(s): CT abdomen pelvis w con Accession Number(s): [id number] cc: Britt Alas M.D. [place] [id number] Patient Name: JUAN GARCIA MRN: [id number] date: 1990 Sex: F Assigned Patient Location: ED.MAIN Current Patient Location: ED.MAIN Accession/Order Number: [id number] Exam Date: 01/18/2025 19:17 Report Date: 01/18/2025 20:00 At the request of: ASYA INMAN Procedure: CT abdomen pelvis w con CT ABDOMEN AND PELVIS WITH INTRAVENOUS CONTRAST: CLINICAL HISTORY: RUQ pain, worse than last week, h/o multiple surg COMPARISON: 01/09/2025 TECHNIQUE: Spiral images were obtained through the abdomen and pelvis following the administration of intravenous contrast. This CT exam was performed using one or more following dose reduction techniques: Automated exposure control, adjustment of the mA and/or kV according to patient size, or use of iterative reconstruction technique. FINDINGS: Lung Bases: [Lung bases are clear] Organs:Multifocal hepatic cysts. No abnormal enhancement. Cholecystectomy. Spleen, adrenals, pancreas unremarkable..[Prostate right lower pole calculus. No hydronephrosis. No abnormal renal enhancement identified. GI: Gastric bypass changes.[Postsurgical changes along the cecum likely from appendectomy. Otherwise no evidence of bowel obstruction. Moderate retained stool. Pelvis:[Mild bladder distention. No adnexal mass.] Peritoneum/Retroperitoneum:No free air or free fluid. No adenopathy. Nonaneurysmal aorta[ Abd wall/Bones:No suspicious osseous lesion.[ CT/CT abdomen pelvis w con IMPRESSION: Punctate nonobstructive right-sided nephrolithiasis. Negative acute inflammatory process or bowel obstruction. Impression dictated by: Tio Lundberg M.D. 01/18/2025 8:00 PM Dictation Location: [place] [address] Electronically authenticated by: [id number] Y Date: 01/18/2025 20:00 Dictated By: Tio Lundberg M.D. Signed By: 01/18/252002 DD/ 99 TD/TT: Suction Plate Roller Hand:CBC AUTO DIFF Reviewed date:01/19/2025 11:55:38 AM Interpretation: Performing Lab: Notes/Report: [facility] ,White Blood Count2.74.0-11.0 10 3/uLRed Blood Count3.414.20-5.40 10 6/uL Pgsbjudhoz18.712.0-16.0 g/yIFwcffbdzee93.336.0-48.0 %Mean Corpuscular Axgntx83.7 81.0-99.0 fLMean Corpuscular Djzbuatnno77.426.7-34.0 pgMean Corpuscular HGB Conc 33.129.9-35.2 g/dLRed Cell Distribution Width16.611.0-15.0 %Platelet Cgsfy402 150-450 10 3/uLMean Platelet Enkpda05.19.5-13.5 fLNeutrophils Percent Auto38.6 43.0-75.0 %Lymphocytes Percent Auto50.620.5-60.0 %Monocytes Percent Auto6.71.7- 12.0 %Eosinophils Percent Auto3.40.9-7.0 %Basophils Percent Auto0.70.2-2.0 % Immature Granulocytes Pct Auto0.00.0-0.5 %Neutrophils Absolute Auto1.01.4-6.5 10 3/uLLymphocytes Absolute Auto1.41.2-3.8 10 3/uLMonocytes Absolute Auto0.20.3- 0.8 10 3/uLEosinophils Absolute Auto0.10.0-0.7 10 3/uLBasophils Absolute Auto0.0 0.0-0.1 10 3/uLImmature Granulocytes Abs Auto0.000.00-0.03 10 3/uLPerforming Lab:see noteML - [facility] LBCRP Reviewed date:01/19/2025 11:55:38 AM Interpretation: Performing Lab: Notes/Report: [facility] ,C Reactive Protein<0.50<=0.50 mg/dLPerforming Lab:see noteML - [facility] LBLIPASE Reviewed date:01/19/2025 11:55:38 AM Interpretation: Performing Lab: Notes/Report: [facility] ,Djmxbc69.016.0-77.0 U/LPerforming Lab:see noteML - [facility] LB MAGNESIUM Reviewed date:01/19/2025 11:55:38 AM Interpretation: Performing Lab: Notes/Report: [facility] ,Magnesium1.81.8-2.4 mg/dLPerforming Lab:see noteML - [facility] LB PHOSPHORUS Reviewed date:01/19/2025 11:55:38 AM Interpretation: Performing Lab: Notes/Report: [facility] ,Phosphorus2.42.6-4.7 mg/dLPerforming Lab:see noteML - [facility] PROF 14(COMP METB) Reviewed date:01/19/2025 11:55:38 AM Interpretation: Performing Lab: Notes/Report: [facility] ,Vlqkbf672708-923 mmol/LPotassium3.63.5-5.1 mmol/GQchsvwxx92547-964 mmol/LCarbon Vjvnwvs94.821.0-32.0 mmol/LAnion Gap6.4Lfbeecb4382-182 mg/dLBlood Urea Nitrogen 5.07.0-18.0 mg/dLCreatinine0.370.55-1.02 mg/dLEstimated GFR ( Shelby>60 >=60 mL/min/1.73m 2Estimated GFR (Non- Caroline>60>=60 mL/min/1.73m 2BUN Creatinine Ratio13.9Qpexzqx2.58.5-10.1 mg/dLBilirubin Total0.10.2-1.0 mg/dL Aspartate Amino Ymjrxlxzphi3718-72 U/LAlanine Mdyyprtcdvntawoz4068-36 U/L Alkaline Xdiodhfbhwn1122-819 U/LTotal Protein5.16.4-8.2 g/dLAlbumin Level2.73.4- 5.0 g/dLGlobulin2.4Albumin Globulin Ratio1.1Performing Lab:see noteML - [facility] LBCBC AUTO DIFF Reviewed date:01/23/2025 04:11:18 PM Interpretation: Performing Lab: Notes/Report: [facility] ,White Blood Count5.24.0-11.0 10 3/uLRed Blood Count3.644.20-5.40 10 6/uL Xwiaunsuja08.612.0-16.0 g/qBOlwrometlh29.236.0-48.0 %Mean Corpuscular Aubeuv98.0 81.0-99.0 fLMean Corpuscular Odqzkksfnc86.926.7-34.0 pgMean Corpuscular HGB Conc 33.929.9-35.2 g/dLRed Cell Distribution Width15.611.0-15.0 %Platelet Dctht975 150-450 10 3/uLMean Platelet Vlqgqt61.79.5-13.5 fLNeutrophils Percent Auto75.2 43.0-75.0 %Lymphocytes Percent Auto19.820.5-60.0 %Monocytes Percent Auto4.01.7- 12.0 %Eosinophils Percent Auto0.40.9-7.0 %Basophils Percent Auto0.40.2-2.0 % Immature Granulocytes Pct Auto0.20.0-0.5 %Neutrophils Absolute Auto3.91.4-6.5 10 3/uLLymphocytes Absolute Auto1.01.2-3.8 10 3/uLMonocytes Absolute Auto0.20.3- 0.8 10 3/uLEosinophils Absolute Auto0.00.0-0.7 10 3/uLBasophils Absolute Auto0.0 0.0-0.1 10 3/uLImmature Granulocytes Abs Auto0.010.00-0.03 10 3/uLPerforming Lab:see noteML - [facility] LBCBC AUTO DIFF Reviewed date:01/24/2025 12:53:40 PM Interpretation: Performing Lab: Notes/Report: [facility] ,White Blood Count2.64.0-11.0 10 3/uLRed Blood Count3.424.20-5.40 10 6/uL Dvkmrvfcww69.712.0-16.0 g/yBUrbhfehvfk41.436.0-48.0 %Mean Corpuscular Hzehlz64.7 81.0-99.0 fLMean Corpuscular Mdihexqvag18.326.7-34.0 pgMean Corpuscular HGB Conc 33.029.9-35.2 g/dLRed Cell Distribution Width15.911.0-15.0 %Platelet Lcyyk403 150-450 10 3/uLMean Platelet Yarzea00.89.5-13.5 fLNeutrophils Percent Auto40.4 43.0-75.0 %Lymphocytes Percent Auto48.220.5-60.0 %Monocytes Percent Auto8.61.7- 12.0 %Eosinophils Percent Auto1.60.9-7.0 %Basophils Percent Auto1.20.2-2.0 % Immature Granulocytes Pct Auto0.00.0-0.5 %Neutrophils Absolute Auto1.01.4-6.5 10 3/uLLymphocytes Absolute Auto1.21.2-3.8 10 3/uLMonocytes Absolute Auto0.20.3- 0.8 10 3/uLEosinophils Absolute Auto0.00.0-0.7 10 3/uLBasophils Absolute Auto0.0 0.0-0.1 10 3/uLImmature Granulocytes Abs Auto0.000.00-0.03 10 3/uLPerforming Lab:see noteML - [facility] LBPROF 14(COMP METB) Reviewed date:01/24/2025 12:53:40 PM Interpretation: Performing Lab: Notes/Report: [facility] ,Gnlqfv423800-921 mmol/LPotassium3.93.5-5.1 mmol/VWoqeyppy57130-474 mmol/LCarbon Ybjwvdo64.621.0-32.0 mmol/LAnion Gap7.8Asrsdtg2500-106 mg/dLBlood Urea Nitrogen 3.07.0-18.0 mg/dLCreatinine0.550.55-1.02 mg/dLEstimated GFR ( Shelby>60 >=60 mL/min/1.73m 2Estimated GFR (Non- Caroline>60>=60 mL/min/1.73m 2BUN Creatinine Ratio5.7Paesjnm3.88.5-10.1 mg/dLBilirubin Total0.20.2-1.0 mg/dL Aspartate Amino Hiunpapyfyy6024-03 U/LAlanine Hhxdpkjoxxfypoox8124-02 U/L Alkaline Nqjqahugevc5027-413 U/LTotal Protein5.06.4-8.2 g/dLAlbumin Level2.73.4- 5.0 g/dLGlobulin2.3Albumin Globulin Ratio1.2Performing Lab:see noteML - [facility] LBMAGNESIUM Reviewed date:01/25/2025 12:48:07 PM Interpretation: Performing Lab: Notes/Report: [facility] ,Magnesium2.01.8-2.4 mg/dLPerforming Lab:see note - [facility] LB PHOSPHORUS Reviewed date:01/25/2025 12:48:07 PM Interpretation: Performing Lab: Notes/Report: [facility] ,Phosphorus2.72.6-4.7 mg/dLPerforming Lab:see note - [facility] PROF 14(COMP METB) Reviewed date:01/25/2025 12:48:07 PM Interpretation: Performing Lab: Notes/Report: [facility] ,[id number] mmol/LPotassium4.53.5-5.1 mmol/BZzzabipq30138-411 mmol/LCarbon Tapslbd99.921.0-32.0 mmol/LAnion Gap7.3Wodnzlh1373-520 mg/dLBlood Urea Nitrogen 5.07.0-18.0 mg/dLCreatinine0.600.55-1.02 mg/dLEstimated GFR ( [place]>60 >=60 mL/min/1.73m 2Estimated GFR (Non- Caroline>60>=60 mL/min/1.73m 2BUN Creatinine Ratio8.2Pfxxgdy9.98.5-10.1 mg/dLBilirubin Total0.40.2-1.0 mg/dL Aspartate Amino Pfkwlatdugg7195-10 U/LAlanine Fewoexzcralywscj1010-05 U/L Alkaline Enjrmmjhpyi7177-718 U/LTotal Protein6.06.4-8.2 g/dLAlbumin Level3.33.4- 5.0 g/dLGlobulin2.7Albumin Globulin Ratio1.2Performing Lab:see note - [facility] LBMAGNESIUM Reviewed date:08/31/2024 05:12:17 PM Interpretation: Performing Lab: Notes/Report: [facility] ,Magnesium1.91.8-2.4 mg/dLPerforming Lab:see note - [facility] LB PROF CHEM 8 (BAS METB) Reviewed date:08/31/2024 05:12:17 PM Interpretation: Performing Lab: Notes/Report: [facility] ,Hrihil968941-219 mmol/LPotassium3.53.5-5.1 mmol/KBrxkgjyj12119-691 mmol/LCarbon Ditrqcn61.821.0-32.0 mmol/LAnion Gap13.5Wussghx1727-731 mg/dLBlood Urea Nitrogen3.07.0-18.0 mg/dLCreatinine0.510.55-1.02 mg/dLEstimated GFR ( [place]>60>=60 mL/min/1.73m 2Estimated GFR (Non- Caroline>60>=60 mL/min/1.73m 2BUN Creatinine Ratio5.4Nxdkcja7.28.5-10.1 mg/dLPerforming Lab:see noteML - [facility] LBHCG Qualitative* Reviewed date:08/31/2024 05:12:17 PM Interpretation: Performing Lab: Notes/Report: [facility] ,HCG QualitativeNEGATIVENEGATIVEPerforming Lab:see noteML - [facility] LBCA echo doppler complete Reviewed date:09/04/2024 02:45:30 PM Interpretation: Performing Lab: Notes/Report: Source Facility: [place] [address] Cardiology Report Signed Patient: JUAN GARCIA MR#: [id number] : 1990 Acct:[id number] Age/Sex: 34 / F ADM Date: 08/28/24 Loc: [place] 218-[address]: Kal Wilson M.D. Ordering Physician: Kal Wilson M.D. Date of Service: 09/01/24 Procedure(s): CA echo doppler complete Accession Number(s): [id number] cc: Britt Alas M.D.; Kal Wilson M.D. Patient Name: JUAN GARCIA MR#: [id number] : 1990 Exam Date: 09/01/2024 Ordering Doctor: [...] Area (VTI): 3.35 cm2, 3.28 cm2 Deceleration Hardy: Pressure Half-Time: Peak Velocity(Antegrade Flow): 1.25 m/s, [...] M.D. Signed By: 09/03/241826 DD/ 24 TD/TT: Suction Plate Roller Hand:CBC AUTO DIFF Reviewed date:09/17/2024 07:49:06 PM Interpretation: Performing Lab: Notes/Report: [facility] ,White Blood Count4.64.0-11.0 10 3/uLRed Blood Count3.804.20-5.40 10 6/uL Giawjkialf17.312.0-16.0 g/wEUyptrxilif78.836.0-48.0 %Mean Corpuscular Cdhnjh36.9 81.0-99.0 fLMean Corpuscular Xnmlmfuisi68.726.7-34.0 pgMean Corpuscular HGB Conc 33.429.9-35.2 g/dLRed Cell Distribution Width14.011.0-15.0 %Platelet Bfyml927 150-450 10 3/uLMean Platelet Fcueoj47.39.5-13.5 fLNeutrophils Percent Auto43.9 43.0-75.0 %Lymphocytes Percent Auto43.620.5-60.0 %Monocytes Percent Auto9.01.7- 12.0 %Eosinophils Percent Auto2.60.9-7.0 %Basophils Percent Auto0.70.2-2.0 % Immature Granulocytes Pct Auto0.20.0-0.5 %Neutrophils Absolute Auto2.01.4-6.5 10 3/uLLymphocytes Absolute Auto2.01.2-3.8 10 3/uLMonocytes Absolute Auto0.40.3- 0.8 10 3/uLEosinophils Absolute Auto0.10.0-0.7 10 3/uLBasophils Absolute Auto0.0 0.0-0.1 10 3/uLImmature Granulocytes Abs Auto0.010.00-0.03 10 3/uLPerforming Lab:see noteML - [facility] LBLACTATE or LACTIC ACID Reviewed date:09/17/2024 07:49:06 PM Interpretation: Performing Lab: Notes/Report: [facility] ,Lactate/Lactic Acid0.60.4-2.0 mmol/LPerforming Lab:see noteML - [facility] LB Reason For Referral No Information Medications Medication SIG (Take, Route, Frequency, Duration) Notes Start Date End Date Status Ferrous Sulfate 325 (65 Fe) MG 1 tablet Orally w eekly; Duration: 30 days 4ActiveRanolazine ER 500 MGTAKE 1 TABLET BY MOUTH TWICE DAILY Oral; Duration: 30 DaysActivefentaNYL 12 MCG/HR 1 patch to skin Transdermal Q3d; Duration: 30 days with a 25mcg patch 5ActivePrucalopride Succinate 2 MG1 tablet Orally Once a day; Duration: 30 daysActiveFreeStyle Hunter 3 ReaderUse to monitor glucose levels multiple times daily DX Diabetes with hypoglycemic episodes; Duration: 365 days10/14/2023 ActiveFreeStyle Hunter 3 Plus Sensor -USE TO MONITOR GLUCOSE CHANGE ONCE EVERY 15 DAYS; Duration: 30ActiveCompazine 10 MG1 tablet as needed Orally Three times a day4ActivePhospho-Linn 250 Neutral 155-852-130 MGOral; Duration: 30 DaysActiveColchicine 0.6 MG1/2 tablet Oral every other day; Duration: 30 days ActiveOxygenUse 2Liters of continuous oxygen at HS per oxygen concentrator DX Nocturnal hypoxia d/t respiratorydepression; Duration: 365 days5Active fentaNYL 25 MCG/HR 1 patch to skin Transdermal Q 3 days K56.600 01/22/2025tivePromethazine HCl 25 MGTAKE 1 TABLET BY MOUTH 4 TIMES A DAY NEEDED; Duration: 7ActivePlavix 75 MG1 tablet Orally Once a day5Active Nitroglycerin 0.4 MG1 sl Sublingual Q 5 min as needed for chest pain11/29/2024 ActiveMetoprolol Succinate ER 25 MGOral; Duration: 30 DaysActive Cpsrticfzz-KGWA-Jixqgypz 50-325-40 MGTAKE 1 TABLET BY MOUTH EVERY 4 HOURS NEEDED FOR HEADACHE; Duration: 4PRN5ActiveOneTouch Ultra 2 w/DeviceUSE TO MONITOR BLOOD GLUCOSE LEVELS DAILY; Duration: 30ActiveAspirin 81 MG1 tablet Orally Once a day5ActiveOndansetron 4 MG 1-2 tablet on the tongue and allow to dissolve Orally q4h; Duration: 30 days As needed 4ActiveMethocarbamol 500 MGTAKE 1.5 TABLETS BY MOUTH EVERY 6 HRS FOR 30 DAYS; Duration: 30ActiveMagnesium Oxide -Mg Supplement 400 (240 Mg) MGOral; Duration: 10 DaysActiveMetoclopramide HCl 10 MG1 tablet before meals Orally achs; Duration: 30 days5ActiveLevothyroxine Sodium 75 MCGTAKE 1 TABLET BY MOUTH EVERY MORNING ON AN EMPTY STOMACH FOR 30 DAYS; Duration: 90Active traMADol HCl 50 MG 1 tablet as needed Orally qid; Duration: 30 days As needed PRN15ActiveLancets 30G -Use 1 lancet E11.9 once daily; Duration: 90 03/22/2024tiveTopamax 100 MG1 tablet Orally BID; Duration: 30 days06/23/2023 ActiveLiothyronine Sodium 5 MCG1 tablet on an empty stomach Orally Once a day; Duration: 30 days06/23/2023ctiveVerapamil HCl 40 MG1 tablet Oral every 8 hours; Duration: 30 daysActiveLexapro 20 MG1 tablet Orally Once a day06/23/2023ctive traZODone HCl 100 MG1 tablet Orally eusoloa1411/18/2023ctiveHYDROcodone- Acetaminophen 5-325 MG 1 - 2 tablet as needed - max 6/day Orally every 6 hrs; Duration: 30 days K56.600 K56.741815ActiveSenna Plus 8.6-50 MG 1 tablet as needed Orally Twice a day; Duration: 30 days prn constipation 5ActiveRosuvastatin Calcium 40 MGTAKE 1 TABLET BY MOUTH AT BEDTIME Oral; Duration: 30 DaysActivehydrOXYzine HCl 50 MG1 tablet Orally Once a day at bedtime; Duration: 30 daysActiveTest Strips - Test sugar Once daily; Duration: 90 days Dx: E11.9 5ActiveHydrocortisone 10 MG1 tablet with food or milk Orally once a day PRN- InjectionActiveSucralfate 1 GM1 tablet on an empty stomach Orally TID 5ActiveRemeron 30 MG1.5 tablet at bedtime Orally Once a day06/23/2023 Active Social History Tobacco Use: Social History Observation Description Date Details (start date - stop date) Never Smoker NA - NA Tobacco Control (Standard) Question Answer Notes Tobacco use: Nonsmoker AUDIT-C (Standard) Question Answer Notes Did you have a drink containing alcohol in the p ast year? No Mcvcop2HxzjwkivqdbtswLxfztytz Problems Problem Type SNOMED Code ICD Code Onset Dates Problem Status W/U Status Risk Notes Problem Hypomagnesemia (622585718) Hypomagnesemia (E83.42) ActiveconfirmedProblemGastroparesis (385806200)Gastroparesis (K31.84)Active confirmedProblemPostgastric surgery syndrome (52268737)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)ActiveconfirmedProblemAsthma (724529785)Asthma (J45.909)Active confirmedProblemGastroesophageal reflux disease (656230173)GERD (gastroesophageal reflux disease) (K21.9)ActiveconfirmedProblemHypothyroidism (40867833)Hypothyroidism (E03.9)ActiveconfirmedProblemCoronary artery disease (06603169)CAD (coronary artery disease) (I25.10)ActiveconfirmedProblemAnxiety (02776920)Anxiety (F41.9)ActiveconfirmedProblemMigraine (04126181)Migraine (G43.909)ActiveconfirmedProblemIrritable bowel syndrome (30904838)IBS (irritable bowel syndrome) (K58.9)ActiveconfirmedProblemGeneralized anxiety disorder (52397314)EDWAR (generalized anxiety disorder) (F41.1)ActiveconfirmedProblemLumbar radiculopathy (847864491)Lumbar radiculopathy (M54.16)ActiveconfirmedProblem Allergic conjunctivitis (961531042)Allergic conjunctivitis (H10.10)Active confirmedProblemAcquired hypothyroidism (096050189)Acquired hypothyroidism (E03.9)ActiveconfirmedProblemHypoglycemia (087719466)Hypoglycemia (E16.2)Active confirmedProblemAnxiety disorder (859515926)Anxiety disorder (F41.9)Active confirmedProblemIdiopathic sleep related non-obstructive alveolar hypoventilation (709337730)Nocturnal hypoxemia (G47.34)ActiveconfirmedProblem Hypophosphatemia (2770940)Hypophosphatemia (E83.39)ActiveconfirmedProblem Neutropenia (128837684)Neutropenia (D70.9)ActiveconfirmedProblemSepsis (40209194)Sepsis (A41.9)ActiveconfirmedProblemLeukocytosis (612080464)Elevated white blood cell count (D72.829)ActiveconfirmedProblemEdema (866954087)Facial edema (R60.0)ActiveconfirmedProblemGastrostomy present (960908222)PEG (percutaneous endoscopic gastrostomy) status (Z93.1)ActiveconfirmedProblem Respiratory depression (35002990)Respiratory depression (R06.89)Activeconfirmed ProblemSevere protein calorie malnutrition (966501066)Severe protein-calorie malnutrition (E43)ActiveconfirmedProblemDisorder of endocrine system (451448804) 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.9)ActiveconfirmedProblemMalnutrition of moderate degree (Baxter: 60% to less than 75% of standard weight) (10972791) Moderate malnutrition (E44.0)ActiveconfirmedProblemGastrostomy present (679043730)Feeding by G-tube (Z93.1)ActiveconfirmedProblemGastrostomy present (152849189)Gastrostomy in place (Z93.1)ActiveconfirmedProblemAcute non-ST segment elevation myocardial infarction (442951798)NSTEMI (non-ST elevation myocardial infarction) (I21.4)ActiveconfirmedProblemJejunostomy tube, device (physical object) (652799743)Jejunostomy tube present (Z93.4)Activeconfirmed ProblemIntestinal obstruction (90209919)Partial intestinal obstruction, unspecified as to cause (K56.600)ActiveconfirmedProblemIntestinal obstruction (08678231)SBO (small bowel obstruction) (K56.609)Activeconfirmed Vital Signs Oximetry 98 % 12/12/2024 Blood pressure pyalemxil24 mm Hg01/25/20256093Shqkuz74 in01/25/2025lood pressure hmwsreqo803 mm Hg01/25/20250597Buybyu147.4 lbs103/28/2024BMI30.08 kg/m201/25/2025 Encounters Encounter Location Date Provider Diagnosis [facility] [address] [place] [address] 01/31/2024 Brandyn Alas [facility] [place] [address] 01/31/2024mel [facility] [place] [address]/18/2024oug [facility] [place] [address]/oug [facility] [place] [address]/oug HoyPartial intestinal obstruction, unspecified as to cause K56.600[facility] [place] [address]/oug HoyGERD (gastroesophageal reflux disease) K21.9B[facility] [place] [address]/oug [facility] [place] [address]/oug [facility] [place] [address]/4Doug [facility] [place] [address]/07/2024Doug Hoy GERD (gastroesophageal reflux disease) K21.9B[facility] [facility] [place] [address]/Doug HoyGERD (gastroesophageal reflux disease) K21.9[facility] [address] [place] [address]/[facility] [place] [address]/Doug HoyPartial intestinal obstruction, unspecified as to cause K56.600BV[facility] [place] [address]/Doug [facility] [place] [address]/Doug [facility] [place] [address]/Doug HoyGERD (gastroesophageal reflux disease) K21.9B[facility] [facility] [place] [address]/05/2024[facility] [facility] [place] [address]/06/2024Doug [facility] [facility] [place] [address]/08/2024 Brandyn HoyGERD (gastroesophageal reflux disease) K21.9BMiddle [facility] [facility] [place] [address]/11/2024Doug HoyGERD (gastroesophageal reflux disease) K21.9B[facility] [facility] [place] [address]/01/2025Doug [facility]oyBM[facility] [facility] [place] [address]/Doug HoyPartial intestinal obstruction, unspecified as to cause K56.600[facility] [facility] [place] [address]/Doug HoyPartial intestinal obstruction, unspecified as to cause K56.600[facility] [facility] [place] [address]/Doug HoyPartial intestinal obstruction, unspecified as to cause K56.600[facility] [facility] [place] [address]/Doug HoyPartial intestinal obstruction, unspecified as to cause K56.600BVSt. [facility] North Health [facility] [facility] [place] [address]/Doug HoyGERD (gastroesophageal reflux disease) K21.9B[facility] [facility] [place] [address]/Doug HoyBChildren[facility] [facility] [place] [address]/Doug [facility] [facility] [place] [address]/05/2024 [facility] [facility] [place] [address]/05/2024Doug HoyHypoglycemia E16.2BChildren[facility] [address] [facility] [place] [address]/08/2024Doug HoyGERD (gastroesophageal reflux disease) K21.9B[facility] [facility] [place] [address]/08/2024Doug [facility] [facility] [place] [address]/Doug HoyPartial intestinal obstruction, unspecified as to cause K56.600[facility] [facility] [place] [address]/Doug [facility] [facility] [place] [address]/ Brand[facility] [place] [address] 05/04/2024Doug HoyGERD (gastroesophageal reflux disease) K21.9BMiddle Park Medical Center[address] [place] [address]/Doug [facility] [place] [address]/03/2024 Brandyn HoyGERD (gastroesophageal reflux disease) K21.9BMiddle [facility] Center[address] [place] [address]/08/2024Doug [facility] [facility] [place] [address]/12/2024 Brandyn HoyPartial intestinal obstruction, unspecified as to cause K56.600BV[facility] [place] [address]/ Brandyn HoyGERD (gastroesophageal reflux disease) K21.9[facility] [place] [address]/Doug HoyBVSt. Anthony North Health Campus[address] [place] [address]/Doug Hoy GERD (gastroesophageal reflux disease) K21.9BVSt. Anthony North Health Campus[address] [facility] [place] [address]/10/2024Doug HoyPartial intestinal obstruction, unspecified as to cause K56.600 and GERD (gastroesophageal reflux disease) K21.9[facility] [facility] [place] [address]/Doug [facility] [facility] [place] [address]/Doug HoyBVSt. Anthony North Health Campus[address] [facility] [place] [address]/Doug HoyGERD (gastroesophageal reflux disease) K21.9B[facility] [facility] [place] [address]/07/2024Doug HoyPartial intestinal obstruction, unspecified as to cause K56.600 and GERD (gastroesophageal reflux disease) K21.9 [facility] [facility] [place] [address] 07/21/2024Doug HoyBMiddle Park Medical Center[address] [facility] [place] [address]/Doug HoyBMiddle Park Medical Center[address] [facility] [place] [address]/Doug HoyGERD (gastroesophageal reflux disease) K21.9B[facility] [place] [address] 08/09/2024Doug HoyElevated white blood cell count D72.829[facility] [facility] [place] [address]/Doug [facility] [facility] [place] [address]/02/2024 Brandyn HoyPartial intestinal obstruction, unspecified as to cause K56.600BVSt. [facility] Health Campus[address] [facility] [place] [address]/02/2024 Brandyn [facility] [facility] [place] [address]/02/2024Doug [facility] [facility] [place] [address]/04/2024Doug HoyGERD (gastroesophageal reflux disease) K21.9BChildren[facility] [facility] [place] [address] 08/21/2024Doug [facility] [facility] [place] [address]/Doug HoyGERD (gastroesophageal reflux disease) K21.9 [facility] [facility] [place] [address] 09/04/2024Doug HoyGERD (gastroesophageal reflux disease) K21.9BChildren[facility] [facility] [place] [address]/Doug Hoy [facility] [facility] [place] [address] 09/04/2024Doug [facility] [facility] [place] [address]/Doug [facility] [facility] [place] [address]/Doug [facility] [facility] [place] [address]/02/2024Doug HoyGERD (gastroesophageal reflux disease) K21.9BChildren[facility] [facility] [place] [address]/04/2024Doug [facility] [facility] [place] [address]/05/2024Doug HoyPartial intestinal obstruction, unspecified as to cause K56.600[facility] [facility] [place] [address]/Doug HoyBMiddle Park [facility] Center[address] [facility] [place] [address]/Doug HoyGERD (gastroesophageal reflux disease) K21.9B[facility] [facility] [place] [address]/Doug HoyIBS (irritable bowel syndrome) K58.9BChildren[facility] [facility] [place] [address]/Doug [facility] [facility] [place] [address]/Doug [facility] [facility] [place] [address]/Doug [facility] [facility] [place] [address]/Doug HoyGERD (gastroesophageal reflux disease) K21.9BM[facility] Center[address] [facility] [place] [address]/03/2024Doug HoyIBS (irritable bowel syndrome) K58.9BChildren[facility] [facility] [place] [address] 10/17/2024Doug [facility] [facility] [place] [address]/04/2024Doug [facility] [place] [address]/04/2024Doug [facility] [place] [address]/10/2024Doug HoySepsis A41.9BMiddle [facility] [facility] [place] [address]/12/2024Doug [employer] [place] [address] 10/27/2024Doug HoyGERD (gastroesophageal reflux disease) K21.9BChildren[facility] [facility] [place] [address]/01/2025Doug [employer] [facility] [employer] [facility] [place] [address] 11/14/2024Doug [facility] [place] [address]/03/2024Doug [facility] [facility] [place] [address]/09/2024Doug [facility] [facility] [place] [address]/10/2024Doug [facility] [facility] [place] [address]/10/2024Doug [facility] [facility] [place] [address]86/11/2024 Brandyn [facility] [place] [address] 11/27/2024Doug HoyGERD (gastroesophageal reflux disease) K21.9BM[facility] Center[address] [place] [address]/Doug [employer] [facility] [place] [address] 12/04/2024Doug [facility] [place] [address]/Doug HoyGERD (gastroesophageal reflux disease) K21.9 [facility] [place] [address] 12/05/2024Doug HoyIBS (irritable bowel syndrome) K58.9BChildren[facility] [place] [address]/Doug [facility] [place] [address]/ [facility] [place] [address]/Doug [facility] [place] [address]/Doug [facility] [place] [address]/Doug [facility] [place] [address]/Doug [facility] [place] [address]/ [facility] [facility] [place] [address]/03/2024Doug [facility] [place] [address]/11/2024Doug [facility] [place] [address]/11/2024Doug [facility] [place] [address]/01/2025Doug [facility] [place] [address]/Doug HoyIBS (irritable bowel syndrome) K58.9BV[facility] [facility] [place] [address]/Doug [facility] [facility] [place] [address]/Doug [facility] [facility] [place] [address]/05/2024Doug HoyBVSt. [facility] [facility] [place] [address]/09/2024 Brandyn HoyIBS (irritable bowel syndrome) K58.9B[facility] [facility] [place] [address]/10/2024Doug [facility] [facility] [place] [address]/12/2024Doug [facility] [facility] [place] [address]/ Brandyn HoyGERD (gastroesophageal reflux disease) K21.9 ; IBS (irritable bowel syndrome) K58.9 ; Severe protein-calorie malnutrition E43 and PEG (percutaneous endoscopic gastrostomy) status Z93.1B[facility] [facility] [place] [address]/Doug HoyNocturnal hypoxemia G47.34 ; Respiratory depression R06.89 and UTI (urinary tract infection) N39.0[facility] [facility] [place] [address]/05/2024 Brandyn HoyGERD (gastroesophageal reflux disease) K21.9 and Hypoglycemia E16.2 [facility] [place] [address] 01/25/2025Doug HoyHypophosphatemia E83.39 ; Hypomagnesemia E83.42 and SBO (small bowel obstruction) K56.609BuRangely District Hospital[address] [facility] [place] [address]/Doug HoyHypoglycemia E16.2BJeremy [place] [address] [facility] [place] [address]/06/2024Doug Hoy Hypoglycemia E16.2BJeremy [place] [address]55 [place] [address]/Doug HoyGERD (gastroesophageal reflux disease) K21.9 ; Severe protein-calorie malnutrition E43 ; PEG (percutaneous endoscopic gastrostomy) status Z93.1 and Acquired hypothyroidism E03.9BJeremy [place] [address]55 [address] [facility] [place] [address]/09/2024Doug Hoy Gram negative sepsis A41.[id number] [place] [address]/Doug HoySepsis A41.9B[address] [place] [address]/Doug HoyGERD (gastroesophageal reflux disease) K21.9 ; IBS (irritable bowel syndrome) K58.9 and Severe protein-calorie malnutrition J27MtturpfJeremy [address] [place] [address]/Doug HoyCAD (coronary artery disease) I25.10 and Moderate malnutrition E44.[address] [address]/10/2024Doug HoyHypoglycemia E16.2 and IBS (irritable bowel syndrome) K58.9 Assessments Encounter Date Diagnosis (ICD Code) Assessment Notes Treatment Notes Treatment Clinical Notes Section Notes 03/21/2024 GERD (gastroesophageal reflux di sease) (ICD-10 - K21.9) 03/21/2024Hypoglycemia (ICD-10 - E16.2)04/10/2024Hypoglycemia (ICD-10 - E16.2) 04/19/2024Hypoglycemia (ICD-10 - E16.2)08/07/2024GERD (gastroesophageal reflux disease) (ICD-10 - K21.9)08/07/2024Severe protein-calorie malnutrition (ICD-10 - E43)08/22/2024Gram negative sepsis (ICD-10 - A41.50)09/11/2024Sepsis (ICD-10 - A41.9)10/03/2024GERD (gastroesophageal reflux disease) (ICD-10 - K21.9) 10/03/2024IBS (irritable bowel syndrome) (ICD-10 - K58.9)11/14/2024AD (coronary artery disease) (ICD-10 - I25.10)11/14/2024Moderate malnutrition (ICD-10 - E44.0)skipping feding tube11/23/2024Hypoglycemia (ICD-10 - E16.2)11/23/2024IBS (irritable bowel syndrome) (ICD-10 - K58.9)12/12/2024Nocturnal hypoxemia (ICD-10 - G47.34)Faile dnocturnal oximetry sats in low 80's 83-84% - needs 2 L to prevent noctuanl hyp=oxemai due toresp flmkatxzeoj95/28/2025Respiratory depression (ICD-10 - R06.89)02/04/2024artial intestinal obstruction, unspecified as to cause (ICD-10 - K56.600)02/07/2024GERD (gastroesophageal reflux disease) (ICD-10 - K21.9)02/21/2024GERD (gastroesophageal reflux disease) (ICD-10 - K21.9)03/03/2024GERD (gastroesophageal reflux disease) (ICD-10 - K21.9)03/06/2024Partial intestinal obstruction, unspecified as to cause (ICD-10 - K56.600)03/13/2024GERD (gastroesophageal reflux disease) (ICD-10 - K21.9) 03/24/2024GERD (gastroesophageal reflux disease) (ICD-10 - K21.9)03/27/2024GERD (gastroesophageal [...] - K56.600)05/04/2024GERD (gastroesophageal reflux disease) (ICD-10 - K21.9)05/17/2024 (gastroesophageal reflux disease) (ICD-10 - K21.9)05/26/2024Partial intestinal obstruction, unspecified as to cause (ICD-10 - K56.600)05/30/2024 (gastroesophageal reflux disease) (ICD-10 - K21.9) 06/12/2024D (gastroesophageal reflux disease) (ICD-10 - K21.9)06/23/2024 Partial intestinal obstruction, unspecified as to cause (ICD-10 - K56.600) 08/04/2024 (gastroesophageal reflux disease) (ICD-10 - K21.9)08/09/2024 Elevated white blood cell count (ICD-10 - D72.829)08/15/2024Partial intestinal obstruction, unspecified as to cause (ICD-10 - K56.600)08/17/2024 (gastroesophageal reflux disease) (ICD-10 - K21.9)08/31/2024D (gastroesophageal reflux disease) (ICD-10 - K21.9)09/04/2024GERD (gastroesophageal reflux disease) (ICD-10 - K21.9)09/15/2024 (gastroesophageal reflux disease) (ICD-10 - K21.9)09/18/2024Partial intestinal obstruction, unspecified as to cause (ICD-10 - K56.600)09/29/2024D (gastroesophageal reflux disease) (ICD-10 - K21.9)10/03/2024IBS (irritable bowel syndrome) (ICD-10 - K58.9)10/13/2024GERD (gastroesophageal reflux disease) (ICD-10 - K21.9)10/17/2024IBS (irritable bowel syndrome) (ICD-10 - K58.9) 10/24/2024Sepsis (ICD-10 - A41.9)10/27/2024GERD (gastroesophageal reflux disease) (ICD-10 - K21.9)11/27/2024GERD (gastroesophageal reflux disease) (ICD- 10 - K21.9)12/05/2024GERD (gastroesophageal reflux disease) (ICD-10 - K21.9) 12/05/2024IBS (irritable bowel syndrome) (ICD-10 - K58.9)12/28/2024IBS (irritable bowel syndrome) (ICD-10 - K58.9)01/22/2025IBS (irritable bowel syndrome) (ICD-10 - K58.9)01/01/2025GERD (gastroesophageal reflux disease) (ICD- 10 - K21.9)01/01/2025IBS (irritable bowel syndrome) (ICD-10 - K58.9)01/25/2025 Hypophosphatemia (ICD-10 - E83.39)01/25/2025Hypomagnesemia (ICD-10 - E83.42) 07/07/2024D (gastroesophageal reflux disease) (ICD-10 - K21.9)07/21/2024 Partial intestinal obstruction, unspecified as to cause (ICD-10 - K56.600) 07/21/2024GERD (gastroesophageal reflux disease) (ICD-10 - K21.9)01/25/2025SBO (small bowel obstruction) (ICD-10 - K56.609)01/01/2025Severe protein-calorie malnutrition (ICD-10 - E43)06/23/2024GERD (gastroesophageal reflux disease) (ICD-10 - K21.9)12/12/2024UTI (urinary tract infection) (ICD-10 - N39.0)waiting on cx for pseudoimona and dnymwqwveegxukuf59/19/2025Severe protein-calorie malnutrition (ICD-10 - E43)08/07/2024PEG (percutaneous endoscopic gastrostomy) status (ICD-10 - Z93.1)5Acquired hypothyroidism (ICD-10 - E03.9) 01/01/2025PEG (percutaneous endoscopic gastrostomy) status (ICD-10 - Z93.1) Plan Of Treatment Pending Test Test Name Order Date UA (URINALYSIS, COMPLETE) 07/30/2023 ESR 08/03/2023 Urine Culture 07/30/2023 RHEUMATOID PANEL 08/03/2023 XR Abdomen KUB 1 View 11/04/2023 TESTOSTERONE, FREE AND TOTAL 11/26/2023 FSH - PROLACTIN 11/18/2023 AMYLASE 01/10/2024 CBC AUTO DIFF 01/10/2024 CBC AUTO DIFF 01/27/2025 CRP 08/03/2023 ESTRADIOL 11/18/2023 LIPASE 01/10/2024 PROF [...] Blood Culture 2 09/11/2024 ECG 12 lead 01/27/2025 BLOOD CULTURE 10/24/2024 Sjogren's Ab, Anti-SS-A/-SS-B 08/03/2023 US abdomen complete 09/05/2023 US abdomen complete 09/06/2023 Insurance Providers Payer Name Payer Address Payer Phone Subscriber Number Group Number Insured Name Patient Relationship to Insured Coverage Start Date Coverage End Date [employer] [place] [employer] [address] [address] [place] [address] [id number] Brent Garcia - patient is the insured Medications Administered Medication Instructions Date of Administration Dosage Notes Ceftriaxone 1 gram g1 gramDexamethasone, 4mg/mL07/08/491132 mg12 Medical (General) History Medical History History ICD Code IBS (irritable bowel syndrome) K58.9 Anxiety F41.9 Asthma J45.909 GERD (gastroesophageal reflux disease) K 21.9 Migraine G43.909 Hypothyroidism E03.9 Surgical History Surgery Date(Month/Year) Gastric bypass 01/2022 DELIVERYx3 APPENDECTOMYCHOLECYSTECTOMYMALS Ehavhkt86/2024J Tube duamphe8678Lprb Replacement 2024Hematoma Hwkmqbs5574Nvqscnhv Angiography, US LAD, iFR- [facility] Ylridt7012/06/2024 untwisted bowel, repair of hole in intestine and removal of Eposrfqvj05/25 Hospitalization History Reason Date(Month/Year) Chest Pain 11/2024 Low potassium low phosphate 01/2025 Heart Attack- [facility] 10/2024 [place]/ Bacteremia 09/2024 Sepsis 08/2024 Hypoglycemia/ Bowel Obstruction 02/07 [facility]- Hypoglycemia 01/08 [facility]- malnutrition, DM 06/2023 see above- [facility], [facility]- bowel ladlaxuluhb1786
--- OUTSIDE RECORDS SUMMARY | 2025-01-27 10:06 | XMS_ITS | Encounter Summary ---
Author Organization [facility] Address [address] [place] [address] Care Team Providers Care Needle Maker Name Role Phone Thomas Alas MD Primary Care Provider [phone] Vicky Cardenas RN Unavailable Unavailable Reason for Visit * ReasonOnset DateCommentsCare Waecviznplwq55/12/2025 Encounter Details DateTypeDepartmentCare Team (Latest Contact Info)Blwkdhboncj06/12/2025Patient Outreach Value Based Care [address] [place] [phone] Vicky Cardenas, DEE Care Coordination Social History Tobacco UseTypesPacks/DayYears UsedDateSmoking Tobacco: NeverSmokeless Tobacco: NeverAlcohol UseStandard Drinks/WeekCommentsNot Currently0 (1 standard drink = 0.6 oz pure alcohol)[facility] UtilitiesAnswerDate RecordedIn the past 12 months has the [place], gas, oil, or water [employer] threatened to shut off services in your home?Yes12/17/2024Overall Financial Resource Strain (CARDIA)AnswerDate Recorded How hard is it for you to pay for the very basics like food, housing, medical care, and heating?Not hard at all12/17/2024PHQ-2AnswerDate RecordedPatient Health Questionnaire-2 Nijfo85402/28/2024Humiliation, Afraid, Rape, and Kick questionnaireAnswerDate RecordedWithin the [...] or living in a nursing home (including now)?No12/17/2024Hunger Vital SignAnswerDate RecordedWithin the past 12 months, you worried that your food would run out before you got the money to buymore.Never true12/17/2024Ran Out of Food in the Last YearNot on file 12/17/2024CommentsNoSex and Gender InformationValueDate RecordedSex Assigned at LndguUjdexe86/03/2025 3:45 PM EDTLegal SzyPnynbb70/30/2022 12:07 AM EDTGender XmnshwlaSrrlsm66/03/2025 3:45 PM EDTSexual OrientationHeterosexual or Dszbdpgy03/03/2025 3:45 PM EDTdocumented as of this encounter Progress Notes * Vicky Cardenas RN - 01/26/2025 1:15 PM EST Care Plan Date: 01/26/2025 Situation: Patient identified as a High Utilizer Background: PMHX: HTN, HLD, asthma, RICHAR, hypothyroidism, GERD, IBS, fibromyalgia, T2DM, recurrent GI obstructions, GI history including prior sleeve gastrectomy and celiac plexus block, chronic gastroparesis, Readmit Risk Score: 48 [facility] ED Visits past 6 months: 1 :last ED visit 11/26/2024 [facility] ED/Inpt admissions past 6 months: 5 Most Recent [facility] ED/Inpt admit: 12/17/2024-12/21/2024, LOS 4 days Assessment: 34 y/o female, PCP Dinesh Flores [facility] Medicaid, PMH: HTN, HLD, asthma,RICHAR, hypothyroidism, GERD, IBS, fibromyalgia, T2DM, recurrent GI obstructions, GI history includingprior sleeve gastrectomy and celiac plexus block, chronic gastroparesis, RYGB 01/2022@ [facility], TPN 3x weekly, BXN2Rfad [facility], Recommendations: monitor medication compliance, monitor upcoming medical appointments, Encourage ptto keep track of follow up appointments with PCP and Specialty provider services , educate pt on when to report to ER versus when to notify PCP for medical concerns. MyChart is active. * Vicky Cardenas RN - 01/26/2025 1:15 PM EST OP RN CM called pt for coordination of care. This senior copywriter left a message requesting a call back. Per chart reviw pt has an appointment with [facility] for GI/Upper KUB today 01/26/2025@2pm. documented in this encounter Plan of Treatment DateTypeDepartmentCare Team (Latest Contact Info)Jgcryvygsbm01/17/2025 11:00 AM ESTOffice Visit [facility] [address] [place] [address] Wali Collins MD [address] [place] [address] 06/28/2025 1:15 PM EDTFollow-Up [facility] [address] [place] [address] Donnie Cesar MD [address] [place] [address] documented as of this encounter Visit Diagnoses Not on filedocumented in this encounter Care Teams Team MemberRelationshipSpecialtyStart DateEnd Date Thomas Alas MD [address] [place] [place] [address] PCP - GeneralFamily Medicine08/17/24 Vicky Cardenas RN Case ManagerCase Kmxeftycbd94/13/25documented as of this encounter
--- OUTSIDE RECORDS SUMMARY | 2025-01-27 10:07 | XMS_ITS ---
Author Organization [facility] Address [address] [place] [address] Care Team Providers Care Deputy Felony Clerk Name Role Phone Thomas Alas MD Primary Care Provider [phone] Vicky Cardenas RN Unavailable Unavailable Active Problems ProblemNoted DateDiagnosed DatePartial bowel onyaheeozyw52/02/2025Obstructed internal kmxaru3912/17/2024bnormal thyroid blood test12/05/2024llergic ryctzozjaccmnr82/21/4738Sfqcalqf18/21/2025 Overview (12/05/2024): Problem List clean-up per request of Phys. EHR Cmte Edema12/05/20241976Qbjxgtuddxod78/21/6756Pzwljaqbhng49/21/2025Otitis media of left ear12/05/2024Postgastric surgery lpojtcfx76/21/9009Kpakbwsbk88/21/2025 Overview (12/05/2024): Problem List clean-up per request of Phys. EHR Cmte Common bile duct iodvyerfsf15/02/2025 Assessment & Plan (11/16/2024 2:13 AM EDT): CT chest/abd/pelvis noted CBD dilation and apperance of complex inflammatory changes. Patient has required multiple doses of opiates and antiemetics to control symptoms. [facility] with Specific concern that she may need ERCP/advanced endoscopy to further evaluation Pain management GI consult Disorder of endocrine wlvgdh7911/09/2024Lumbar jqglolamabhxe45/25/2025Migraine 11/09/2024Severe protein-calorie malnutrition (Baxter: less than 60% of standard weight)11/09/2024Pseudoaneurysm of right femoral fypofv7311/09/2024 Assessment & Plan (11/12/2024 12:39 PM EDT): [...] pseudoaneurysm 11/02 -stable - follow Hgb Myocardial zsotuh3911/09/2024 Assessment & Plan (11/12/2024 12:39 PM EDT): [...] need to uptitrate verapamil if BP allows Ylicjzsp34/18/2025Chest pain10/30/2024 Assessment & Plan (11/16/2024 2:13 AM [...] without complication, without long-term current use of qtimxqf4510/30/2024 Assessment & Plan (11/12/2024 12:39 PM EDT): [...] at home, will begin ISS, ACHS Primary qkbkzxmiekic98/15/2025Other ozupskmdwtpssy90/15/0089Jniwcx86/15/2025 Assessment & Plan (11/02/2024 1:29 PM EDT): [...] Stable, last BM yesterday Median arcuate ligament mhmypwok32/15/2025 Assessment & Plan (11/12/2024 12:39 PM EDT): [...] 9:00 PM EDT): - Stable Protein calorie coxhapqdxiww10/15/2025 Assessment & Plan (11/02/2024 1:29 PM EDT): [...] pain today patient brought urgently back to Academic Computing Director Assessment & Plan (11/01/2024 11:57 AM EDT): [...] -Pending TTE, cath Spontaneous dissection of coronary mklndx8510/30/2024 Assessment & Plan (11/12/2024 12:39 PM EDT): [...] pain today patient brought urgently back to Academic Computing Director Feeding wkkunawwlnzb97/09/2025roken central line09/21/2024Long term (current) use of opiate iwndorrrp95/07/2025Poor response to enteral ugqcxjyob33/28/2025 Sepsis due to Wpmujofkta59/04/2025 Assessment & Plan (08/19/2024 1:03 PM EDT): - source is likely the cellulitis around the J-tube status post J-tube removal. - CT scan from [facility] showing no abscess. - Infectious disease recommendations appreciated, continue with ceftriaxone. - Repeat blood cultures on 08/16: NGTD - central line in place, does not look like infected, continue monitoring, central line care. Assessment & Plan (08/18/2024 12:20 PM EDT): - source is likely the cellulitis around the J-tube status post J-tube removal. - CT scan from [facility] showing no abscess. - Infectious disease recommendations appreciated, continue with ceftriaxone. - Repeat blood cultures on 08/16: NGTD - central line in place, does not look like infected, continue monitoring, central line care. Sepsis due to Dwemsrybspde78/04/2025 Assessment & Plan (08/19/2024 1:03 PM EDT): - source is likely the cellulitis around the J-tube status post J-tube removal. - CT scan from [facility] showing no abscess. - Infectious disease recommendations appreciated, continue with ceftriaxone. - Repeat blood cultures on 08/16: NGTD - central line in place, does not look like infected, continue monitoring, central line care. Assessment & Plan (08/18/2024 12:20 PM EDT): - source is likely the cellulitis around the J-tube status post J-tube removal. - CT scan from [facility] showing no abscess. - Infectious disease recommendations appreciated, continue with ceftriaxone. - Repeat blood cultures on 08/16: NGTD - central line in place, does not look like infected, continue monitoring, central line care. Wgcgwthzkwwot95/04/2025 Assessment & Plan (11/12/2024 12:39 PM EDT): [...] admission. - As needed antiemetics Chronic pain obzyjqxd32/04/2025 Assessment & Plan (11/12/2024 12:39 PM EDT): [...] and scheduled tramadol. Continue with as needed [place]. Assessment & Plan (08/18/2024 12:20 PM EDT): - continue with home meds including fentanyl patch and scheduled tramadol. Continue with as needed [place]ies. 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 Assessment & Plan (08/18/2024 12:20 PM EDT): - status postresection. History of adrenal hkhlirhpcdgzd14/04/2025 Assessment & Plan (11/12/2024 12:39 PM EDT): [...] PM EDT): - continue with dexamethasone Acquired eqqdghdgithkqx20/04/2025 Assessment & Plan (11/16/2024 2:13 AM EDT): [...] 12:20 PM EDT): - continue with levothyroxine. Sxxnkdscexteee80/03/2025 Assessment & Plan (11/12/2024 12:39 PM EDT): [...] well as other thyroid function testing Morbid icsggbx3708/17/2024 Assessment & Plan (08/19/2024 1:03 PM EDT): [...] daily DVT prophylaxis is VTE protocols per [facility] GI prophy Protonix Monitor labs) Obtain blood cultures Comments IV Vanco and cefepime Consult infectious diseases Early ambulation I discussed the plan of care with the patient and she is in agreement. Nndttrgmhr69/02/2025 Assessment & Plan (08/17/2024 1:27 AM EDT): -Unclear blood cultures - Commence patient on Vanco/cefepime - Monitor patient blood cultures - Also evaluate lab tests and correct abnormalities - Consult infectious disease - Obtain 2D echocardiogram History of laparoscopic zeaptmchumtmmlq44/25/2025hronic, continuous use of gvhqpaf5704/11/2024Starvation koromfvvejdz49/25/2025Intestinal ktssiiece03/07/2024 Screening for diabetes mellitus (DM)01/22/2024History of small bowel obstruction 01/21/2024Impaired intestinal /18/1911Axpfr59/25/2024urrent use of steroid mqkwekyvyb89/21/2024ommunity acquired pneumonia of left lower lobe of lung08/07/2023Idiopathic dfjefcsnikd81/21/2024spiration pneumonia of left lower lobe due to vomit08/04/2023Syncope and hgkzlvej05/19/2024Heart rmihxro8706/29/2023 Acute renal failure superimposed on chronic kidney jqdymju5706/29/2023Hypokalemia 06/29/2023ecreased oral bsbivb8805/25/20235087Xrjbvpzlfdvffr76/19/2024nxiety and flbwgsuqxl34/23/2023Feeding jwfnonc6512/07/2022Therapeutic drug monitoring 12/07/20228181Agrykognkjp55/12/2023ilious vomiting with uihmni9110/28/2022Intractable vomiting with fetjbu5810/25/20227890Hgqczu66/20/2023 Overview (11/09/2024): Takes Pro FE daily. Last Assessment & Plan: Assessment: iron infusions ~1 month ago Acute pain of right knee08/04/2022all stone08/04/2022Internal derangement of right /20/2023Mixed incontinence urge and wonfmz0908/04/2022Other specified noninflammatory disorders of ffykan1308/04/2022atellofemoral pain syndrome of right knee08/04/2022Right flank pain08/04/2022Vaginal pain08/04/2022 Rash and nonspecific skin qzcllhxy75/07/2023History of Isabel-en-Y gastric bypass 06/24/2022ipolar ltmcipue25/07/2023astric imolib1801/29/2022Iron deficiency oxstql1611/01/2021Ventral hernia without obstruction or etlsuvlv60/27/2022 Overview (12/05/2024): Last Assessment & Plan: Assessment: will have surgery Calculus of kqokqf1603/10/2021bnormal finding on imaging of liver04/07/2020 Moderate recurrent major qiwmaoraof30/18/2020Situational boejjw5301/03/2020Panic disorder without cycioxiacph68/06/2020Trauma and stressor-related disorder 11/21/2019Duodenogastric reflux of bile11/16/20194675Yzwtuw90/10/2020Preoperative fubkfjvjrjx53/10/2020Regurgitation of food09/25/2019Laryngopharyngeal reflux 10/07/2018Obstructive sleep apnea jzmqllse08/23/2019 Overview (12/05/2024): wears mask every night Dwaussnlssjilu43/20/2019Reactive gdibgftlkduw61/19/2019Chronic fatigue syndrome 09/19/2018Iron xunuxltwqz80/05/2019Vitamin D /05/2019Insomnia 09/15/2018Maltracking of right imvcxwg5506/27/2018Chondromalacia of patella, right 05/30/2018Arthritis of right knee05/30/201839 weeks gestation of 11/23/2016PCOS (polycystic ovarian syndrome)10/02/2013 Overview (11/09/2024): Last Assessment & Plan: Assessment: monitored per PCP Current Treatment and Therapy Plans No current plan information found. Past Treatment and Therapy Plans No past plan information found. Lifetime Dose Tracking * ChemicalLifetime DoseAutomatic EntryManual EntryFluoro Time1,946.2 minutes0 minutes1,946.2 minutesAir Kerma1,280 mGy0 mGy1,280 mGyDose Area Idykkqe511,543 mGy-cm20 mGy-bw9318,543 mGy-cm2
--- OUTSIDE RECORDS SUMMARY | 2025-01-27 10:07 | XMS_ITS | Patient Health Record ---
Author Organization [facility] es Address [address] [place] [address] Care Team Providers Care Cnc Specialist Name Role Phone Ashley Bryson Primary Care Provider Christina Dominguez Unavailable Unavailable Reason For Referral No Information Encounters Encounter Location Date Provider Diagnosis [facility] [address] [place] [address] 04/25/2024 Ashley Bryson Encounter for dental examination [...] End Date Dental [employer] DQ [address] [address] [place] [address] [phone] [id number], BESSIESelf - patient is the cpeoqav77/11/2025[facility] Wrap [facility] [employer] [place] [id number], BESSIE Self - patient is the axujgms34 2024
--- OUTSIDE RECORDS SUMMARY | 2025-01-27 10:07 | XMS_ITS | Encounter Summary ---
Author Organization [facility] Address [address] [place] [address] Care Team Providers Care Finishing And Shipping Supervisor Name Role Phone Thomas Alas MD Primary Care Provider [phone] Vicky Cardenas RN Unavailable Unavailable Reason for Visit * ReasonOnset DateCommentsCare Zibudgkypatw51/05/2025 Encounter Details DateTypeDepartmentCare Team (Latest Contact Info)Wqbewxrkmxk13/05/2025Patient Outreach Value Based Care [address] [place] [phone] Vicky Cardenas, DEE Care Coordination Social History Tobacco UseTypesPacks/DayYears UsedDateSmoking Tobacco: NeverSmokeless Tobacco: NeverAlcohol UseStandard Drinks/WeekCommentsNot Currently0 (1 standard drink = 0.6 oz pure alcohol)[facility] UtilitiesAnswerDate RecordedIn the past 12 months has the [employer], gas, oil, or water [employer] threatened to shut off services in your home?Yes12/17/2024Overall Financial Resource Strain (CARDIA)AnswerDate Recorded How hard is it for you to pay for the very basics like food, housing, medical care, and heating?Not hard at all12/17/2024PHQ-2AnswerDate RecordedPatient Health Questionnaire-2 Lmlfy50702/28/2024Humiliation, Afraid, Rape, and Kick questionnaireAnswerDate RecordedWithin the [...] homeless or living in a mcc (including now)?No12/17/2024Hunger Vital SignAnswerDate RecordedWithin the past 12 months, you worried that your food would run out before you got the money to buymore.Never true12/17/2024Ran Out of Food in the Last YearNot on file 12/17/2024CommentsNoSex and Gender InformationValueDate RecordedSex Assigned at FwcedAuergl80/03/2025 3:45 PM EDTLegal UyyGyovpq63/30/2022 12:07 AM EDTGender JipdkizrMhvetd03/03/2025 3:45 PM EDTSexual OrientationHeterosexual or Jpqyhisr46/03/2025 3:45 PM EDTdocumented as of this encounter Progress Notes * Vicky Cardenas RN - 01/19/2025 1:39 PM EST OP RN CM called pt for coordination of care. Pt stated that she was discharged today from [facility] due to abnormal labs. Pt states she has a follow up appointment with her PCP on 01/25/2025.Pt is aware of her upcoming [facility] appointments on 01/23/2025 and 01/26/2025. Pt confirmed she is receiving TPN 3x a week and is receiving home health with [facility]. This technical report writer informed pt that a health plan case making machine operator was requested on pt's behalf. Pt stated she has not been contacted by a health plan case making machine operator at this time. Encouraged pt to Utilize PCP when appropriate and explained difference between Urgent Care versus the ED. Pt verbalized understanding. OP RN CM will continue to follow. documented in this encounter Plan of Treatment DateTypeDepartmentCare Team (Latest Contact Info)Ncmjnrvsrto84/17/2025 11:00 AM ESTOffice Visit [facility] [address] [place] [phone] Wali Collins MD [address] [place] [phone] 06/28/2025 1:15 PM EDTFollow-Up [facility] [address] [place] [phone] Donnie Cesar MD [address] [place] [phone] documented as of this encounter Visit Diagnoses Not on filedocumented in this encounter Care Teams Team MemberRelationshipSpecialtyStart DateEnd Date Thomas Alas MD [address] [address] PCP - GeneralFamily Medicine08/17/24 Vicky Cardenas RN Case ManagerCase Twlnugjxyk00/13/25documented as of this encounter
--- OUTSIDE RECORDS SUMMARY | 2025-01-27 10:08 | XMS_ITS | Clinical Summary ---
Author Organization [facility] Address [address] [place] [address] Care Team Providers Care Bottle Gauger Name Role Phone Britt Calix MD Primary Care Provider [phone] Vicky Cardenas RN Unavailable Unavailable Allergies Active AllergyReactionsCriticalityNoted YuknRmdtjzfzNadhvgywAoltIre56/02/2025 Adhesive Tape-OotjzhxedYgdbaYftzwa79/23/2020 Sensitive to certain adhesive tapes. Redness and itchy. CodeineNausea And EetlvhcwYgldql75/02/2025Nsaids (Non-Steroidal Anti- Inflammatory Drug)GI jcqvrprjlhwNslxev98/02/2025 Medications MedicationSigDispense QuantityRefillsLast FilledStart DateEnd DateStatus liothyronine [...] day. Give with 25 mcg patchActive HYDROcodone-acetaminophen (Slaton) 5-325 mg tablet Take 2 tablets by [...] 502/ctive Active Problems ProblemNoted DateDiagnosed DatePartial bowel fsspymkpijb73/02/2025Obstructed internal nslbsa2512/17/2024bnormal thyroid blood test12/05/2024llergic /21/8044Dopjvtug73/21/2025 Overview (12/05/2024): Problem List clean-up per request of Phys. EHR Cmte Edema12/05/20240717Wwocaconwktv24/21/1899Zdovmfynodu30/21/2025Otitis media of left ear12/05/2024Postgastric surgery mfumljrn53/21/4199Eqovmgqsv26/21/2025 Overview (12/05/2024): Problem List clean-up per request of Phys. EHR Cmte Common bile duct rwbwptylyy21/02/2025 Assessment & Plan (11/16/2024 2:13 AM EDT): CT chest/abd/pelvis noted CBD dilation and apperance of complex inflammatory changes. Patient has required multiple doses of opiates and antiemetics to control symptoms. Request to transfer to the [facility] where much of her advanced care has been provided with Specific concern that she may need ERCP/advanced endoscopy to further evaluation Pain management GI consult Disorder of endocrine uykphm5411/09/2024Lumbar lybztuvnedayg06/25/2025Migraine 11/09/2024Severe protein-calorie malnutrition (Baxter: less than 60% of standard weight)11/09/2024Pseudoaneurysm of right femoral xxtarm5111/09/2024 Assessment & Plan (11/12/2024 12:39 PM EDT): [...] pseudoaneurysm 11/02 -stable - follow Hgb Myocardial erqqsc0111/09/2024 Assessment & Plan (11/12/2024 12:39 PM EDT): [...] need to uptitrate verapamil if BP allows Uqtrnmxd58/18/2025Chest pain10/30/2024 Assessment & Plan (11/16/2024 2:13 AM [...] without complication, without long-term current use of vthwyki7710/30/2024 Assessment & Plan (11/12/2024 12:39 PM EDT): [...] at home, will begin ISS, ACHS Primary bhjkvgyiqddl30/15/2025Other fjjmkgceicmmam79/15/3778Xmpvfw87/15/2025 Assessment & Plan (11/02/2024 1:29 PM EDT): [...] Stable, last BM yesterday Median arcuate ligament kfkfkezg58/15/2025 Assessment & Plan (11/12/2024 12:39 PM EDT): [...] and then MALS release S/P laparoscopic sleeve qwagetxeslm29/15/2025 Assessment & Plan (11/12/2024 12:39 PM EDT): [...] 9:00 PM EDT): - Stable Protein calorie gepomikxrlow78/15/2025 Assessment & Plan (11/02/2024 1:29 PM EDT): [...] pain today patient brought urgently back to [employer] Assessment & Plan (11/01/2024 11:57 AM EDT): [...] -Pending TTE, cath Spontaneous dissection of coronary trdxhz2610/30/2024 Assessment & Plan (11/12/2024 12:39 PM EDT): [...] pain today patient brought urgently back to [employer] Feeding vnrfietezsqr68/09/2025roken central line09/21/2024Long term (current) use of opiate vocvubrms98/07/2025Poor response to enteral dnreqqfgu28/28/2025 Sepsis due to Qybapzkpis87/04/2025 Assessment & Plan (08/19/2024 1:03 PM EDT): - source is likely the cellulitis around the J-tube status post J-tube removal. - CT scan from [facility] showing no abscess. - Infectious disease recommendations appreciated, continue with ceftriaxone. - Repeat blood cultures on 08/16: NGTD - central line in place, does not look like infected, continue monitoring, central line care. Assessment & Plan (08/18/2024 12:20 PM EDT): - source is likely the cellulitis around the J-tube status post J-tube removal. - CT scan from [facility] showing no abscess. - Infectious disease recommendations appreciated, continue with ceftriaxone. - Repeat blood cultures on 08/16: NGTD - central line in place, does not look like infected, continue monitoring, central line care. Sepsis due to Ydxrbzvocrxx42/04/2025 Assessment & Plan (08/19/2024 1:03 PM EDT): - source is likely the cellulitis around the J-tube status post J-tube removal. - CT scan from [facility] showing no abscess. - Infectious disease recommendations appreciated, continue with ceftriaxone. - Repeat blood cultures on 08/16: NGTD - central line in place, does not look like infected, continue monitoring, central line care. Assessment & Plan (08/18/2024 12:20 PM EDT): - source is likely the cellulitis around the J-tube status post J-tube removal. - CT scan from [facility] showing no abscess. - Infectious disease recommendations appreciated, continue with ceftriaxone. - Repeat blood cultures on 08/16: NGTD - central line in place, does not look like infected, continue monitoring, central line care. Qrjbnzmbgodyh64/04/2025 Assessment & Plan (11/12/2024 12:39 PM EDT): [...] admission. - As needed antiemetics Chronic pain eekgztlb28/04/2025 Assessment & Plan (11/12/2024 12:39 PM EDT): [...] and scheduled tramadol. Continue with as needed Slaton. Assessment & Plan (08/18/2024 12:20 PM EDT): - continue with home meds including fentanyl patch and scheduled tramadol. Continue with as needed Slaton. 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 Assessment & Plan (08/18/2024 12:20 PM EDT): - status postresection. History of adrenal rkvvwytrqgfeu24/04/2025 Assessment & Plan (11/12/2024 12:39 PM EDT): [...] PM EDT): - continue with dexamethasone Acquired bqpqvyymhfsalv77/04/2025 Assessment & Plan (11/16/2024 2:13 AM EDT): [...] 12:20 PM EDT): - continue with levothyroxine. Vrkqyalavpmhfe57/03/2025 Assessment & Plan (11/12/2024 12:39 PM EDT): [...] well as other thyroid function testing Morbid lpxyqbl4708/17/2024 Assessment & Plan (08/19/2024 1:03 PM EDT): [...] the patient and she is in agreement. Rgdfdsjcyb41/02/2025 Assessment & Plan (08/17/2024 1:27 AM EDT): -Unclear blood cultures - Commence patient on Vanco/cefepime - Monitor patient blood cultures - Also evaluate lab tests and correct abnormalities - Consult infectious disease - Obtain 2D echocardiogram History of laparoscopic xmjhrflgsqycovp51/25/2025hronic, continuous use of oflblpt5304/11/2024Starvation byxtvtfhyman91/25/2025Intestinal dibegecws45/07/2024 Screening for diabetes mellitus (DM)01/22/2024History of small bowel obstruction 01/21/2024Impaired intestinal /18/5360Jdmmm28/25/2024urrent use of steroid crcknwgwop77/21/2024ommunity acquired pneumonia of left lower lobe of lung08/07/2023Idiopathic trultbhpwnk03/21/2024spiration pneumonia of left lower lobe due to vomit08/04/2023Syncope and qwjevikx72/19/2024Heart bdkestq9606/29/2023 Acute renal failure superimposed on chronic kidney rmmbfhl3306/29/2023Hypokalemia 06/29/2023ecreased oral knkapl4505/25/20236215Lxopkpmnabdmcj79/19/2024nxiety and ihkxdjlfdc42/23/2023Feeding syfwmfc6412/07/2022Therapeutic drug monitoring 12/07/20220836Wxdgdisqmsc68/12/2023ilious vomiting with ckhqpt9910/28/2022Intractable vomiting with tixgwa3810/25/20224503Gtpcde11/20/2023 Overview (11/09/2024): Takes Pro FE daily. Last Assessment & Plan: Assessment: iron infusions ~1 month ago Acute pain of right knee08/04/2022all stone08/04/2022Internal derangement of right nnevyhhd75/20/2023Mixed incontinence urge and yebjrm2608/04/2022Other specified noninflammatory disorders of oqqdid6208/04/2022atellofemoral pain syndrome of right knee08/04/2022Right flank pain08/04/2022Vaginal pain08/04/2022 Rash and nonspecific skin /07/2023History of Isabel-en-Y gastric bypass 06/24/2022ipolar otxxmsjd90/07/2023astric lzlryk0901/29/2022Iron deficiency igocwj1611/01/2021Ventral hernia without obstruction or bmgoupbd07/27/2022 Overview (12/05/2024): Last Assessment & Plan: Assessment: will have surgery Calculus of ocdtbk2003/10/2021bnormal finding on imaging of liver04/07/2020 Moderate recurrent major nmqpriadaq72/18/2020Situational wnodtt7801/03/2020Panic disorder without rvrjybkzuap08/06/2020Trauma and stressor-related disorder 11/21/2019Duodenogastric reflux of bile11/16/20196487Jponuh10/10/2020Preoperative ivxpsopbcke16/10/2020Regurgitation of food09/25/2019Laryngopharyngeal reflux 10/07/2018Obstructive sleep apnea ycaashvz36/23/2019 Overview (12/05/2024): wears mask every night Waekywfmldjxst31/20/2019Reactive nkjwsbyvxbod58/19/2019Chronic fatigue syndrome 09/19/2018Iron axjzdzztnf94/05/2019Vitamin D qyuhkfhnjr37/05/2019Insomnia 09/15/2018Maltracking of right hlkycnh4906/27/2018Chondromalacia of patella, right 05/30/2018Arthritis of right knee05/30/201839 weeks gestation of 11/23/2016PCOS (polycystic ovarian syndrome)10/02/2013 Overview (11/09/2024): Last Assessment & Plan: Assessment: monitored per PCP Encounters DateTypeDepartmentCare VwcjWuhvsgadmug83/12/2025 1:11 PM EST - 01/26/2025 11:59 PM ESTHospital Encounter [facility] X-Ray Imaging [address] [place] [address] History of Isabel-en-Y gastric bypass Discharge Disposition: Home or Self Care ()01/26/2025Patient Outreach [facility] [address] [place] [address] Vicky Cardenas, RN Care Mwrccygjnium78/05/2025Patient Outreach [facility] Based Care [address] [place] [address] Vicky Cardenas, RN Care Ptlujcsryzoi79/20/2025Patient Outreach [facility] Based Care [address] [place] [address] Vicky Cardenas, DEE 01/03/2025Patient Outreach [facility] [address] [place] [address] Vicky Cardenas RN 01/03/2025Patient Outreach [facility] Care [address] [place] [address] Vicky Cardenas, RN Care Sgnbyziebcia47/19/2025Orders Only [facility] Surgery Clinic [address] [place] [address] Blanka Parkinson RN Decreased oral intake (Primary Dx); History of Isabel-en-Y gastric bypass; Protein-calorie malnutrition, unspecified severity; Median arcuate ligament syndrome; Impaired intestinal xvkshkyxrj64/18/2025Patient Outreach [facility] Based Care [address] [place] [address] Vicky Cardenas, DEE Care Qyurrxzsgubl75/13/2025 3:00 PM ESTOffice Visit [facility] Surgery Clinic [address] [place] [address] Donnie Cesar MD History of Isabel-en-Y gastric bypass (Primary Dx)12/28/2024Patient Outreach Value Based Care [address] [place] [phone] Vicky Cardenas RN Care Bgzyhdcvotvl38/03/2025 8:00 PM EST - 12/18/2024 9:45 PM ESTSurgery [facility] Main Operating Room [address] [place] [address] Donnie Cesar MD DIAGNOSTIC LAPAROSCOPY [[id number] (CPT??)]12/18/2024 7:08 PM ESTAnesthesia Event [facility] Main Operating Room [address] [place] [address] Josue Walters MD Smay, Kyle, [place] 12/17/2024 10:07 AM EST - 12/21/2024 2:02 PM ESTHospital Encounter [facility] 6AB Ortho Surgery [address] [place] [phone] Anne Marie Scott MD Partial bowel obstruction (CMS/HCC) (Primary Dx); Partial intestinal obstruction, unspecified cause (CMS/HCC); Obstructed internal hernia; Anemia due to acute blood loss Discharge Disposition: Home-Health Care [facility] (06)12/17/20241023Dogqkv44/30/2025 9:18 AM EDTAnesthesia Event [facility] [address] [place] [phone] Sergei Randall MD Arnaut, Daniel, MD 12/14/2024 7:17 AM EDT - 12/14/2024 9:35 AM EDTHospital Encounter [facility] [address] [place] [phone] Braxton Bellamy MD Jackson, Jennifer, CAA Bhatt, Shashi B., MD Common bile duct dilatation; Chronic narcotic use Discharge Disposition: Home or Self Care ()12/14/20247183Avamph01/24/2025Telephone [facility] [address] [place] [phone] Muna Michael RN 12/06/2024 11:20 AM EDTOffice Visit [facility] [address] [place] [address] Wali Collins MD Spontaneous dissection of coronary artery (Primary Dx); Other fatigue; Precordial pain; Anemia due to acute blood loss12/06/2024Orders Only [facility] [address] [place] [address] Maryuri Downing MA Anemia, unspecified type (Primary Dx)12/05/2024Orders Only [facility] [address] [place] [address] Siri Dotson MD 12/04/20248730Jnqdcu67/17/2025Orders Only [facility] [address] [place] [phone] Muna Michael, DEE Common bile duct dilation (Primary Dx)11/26/2024 7:34 PM EDT - 11/26/2024 9:45 PM EDTEmergency [facility] Emergency [address] [place] [phone] Israel Jeong MD Acute UTI (Primary Dx) Discharge Disposition: Home or Self Care ()11/26/20245029Kzjiiz97/01/2025 7:56 PM EDT - 11/17/2024 2:42 PM EDTHospital Encounter [facility] [address] [place] [phone] Sandeep Casey MD Chest pain (Primary Dx) Discharge Disposition: Home-Health Care Svc ()11/15/20249907Qnplyn65/25/2025 10:47 AM EDT - 11/13/2024 2:34 PM EDTHospital Encounter [facility] [address] [place] [phone] Urbano Santos MD Chang, Kyu Chul, MD Schwarz, Stephanie, DO Chest pain (Primary Dx); Chronic narcotic use Discharge Disposition: Home-Health Care Svc ()11/09/20242378Xnnmow32/18/2025 8:45 PM EDTAnesthesia Event [facility] Main Operating Room [address] [place] [address] David Reyes MD 11/02/2024 8:45 PM EDT - 11/02/2024 11:15 PM EDTSurgery [facility] Main Operating Room [address] [place] [address] Jose Angel Fox MD EXPLORATION, HEMATOMA Right Groin11/02/2024 5:41 PM EDT - 11/02/2024 6:41 PM EDT Surgery [facility] Vascular Lab [address] [place] [address] Wali Collins MD Coronary enbskkyxfve70/17/2025 12:30 PM EDT - 11/01/2024 1:30 PM EDTSurgery [facility] Heart [facility] Vascular [place] [facility] [address] [place] [address] Mitchell Agustin MD Coronary lxbbbrayklc72/16/2025 1:30 PM EDT - 10/31/2024 2:30 PM EDTSurgery [facility] V[facility] [address] [place] [address] Tino Gilmore MD Coronary goqznfbjlil52/15/2025 6:28 PM EDT - 11/07/2024 5:10 PM EDTHospital Encounter [facility] [address] [place] [address] Sandeep Casey MD Spencer, Caleb T, MD Vicente, David, MD Mansur, Sarmed, MD Moukarbel, George, MD Hematoma (Primary Dx); Chest pain; NSTEMI (non-ST elevated myocardial infarction) (CMS/HCC); Spontaneous dissection of coronary artery; Gastroparesis; Gastroesophageal reflux disease without esophagitis Discharge Disposition: Home-Health Care [facility] (06)10/30/2024Travelfrom Last 3 Months Family History Medical HistoryRelationNameCommentsNo Known ProblemsFatherNo Known Problems MotherRelationNameStatusCommentsFatherAliveMotherAlive Social History Tobacco UseTypesPacks/DayYears UsedDateSmoking Tobacco: NeverSmokeless Tobacco: Never Tobacco Cessation:Counseling Given: Not Answered Alcohol UseStandard Drinks/WeekCommentsNot Currently0 (1 standard drink = 0.6 oz pure alcohol)[facility] UtilitiesAnswerDate RecordedIn the past 12 months has the [employer] gas, oil, or water [employer] threatened to shut off services in your home?Yes12/17/2024Overall Financial Resource Strain (CARDIA)AnswerDate Recorded How hard is it for you to pay for the very basics like food, housing, medical care, and heating?Not hard at all12/17/2024PHQ-2AnswerDate RecordedPatient Health Questionnaire-2 Xqwdu58602/28/2024Humiliation, Afraid, Rape, and Kick questionnaireAnswerDate RecordedWithin the [...] homeless or living in a chcf (including now)?No12/17/2024Hunger Vital SignAnswerDate RecordedWithin the past 12 months, you worried that your food would run out before you got the money to buymore.Never true12/17/2024Ran Out of Food in the Last YearNot on file 12/17/2024CommentsNoSex and Gender InformationValueDate RecordedSex Assigned at UlgeyAgxhzo34/03/2025 3:45 PM EDTLegal MqyKmaxfj57/30/2022 12:07 AM EDTGender QpuhenfdQntxfd09/03/2025 3:45 PM EDTSexual OrientationHeterosexual or Itqvczue64/03/2025 3:45 PM EDT Last Filed Vital Signs Vital SignReadingTime TakenCommentsBlood Eopcdtlq102/56102/28/2024 3:01 PM EST Yneks034112/28/2024 3:01 PM AOJXfjlpgwfffz09 ??C (98.6 ??F)12/28/2024 3:01 PM EST Respiratory Gvgc134202/21/2024 7:43 AM ESTOxygen Nskykibsyf11%12/21/2024 7:43 AM ESTInhaled Oxygen Concentration--Jcluhd80.9 kg (180 lb 9.6 oz)12/28/2024 3:01 PM RHPJhwwxh450.6 cm (5' 6 )12/28/2024 3:01 PM ESTBody Mass Index29.15102/28/2024 3:01 PM EST Plan of Treatment DateTypeDepartmentCare Team (Latest Contact Info)Eawyitdqwnh31/17/2025 11:00 AM ESTOffice Visit [facility] [address] [facility] [place] [address] Wali Collins MD [address] [place] [address] 06/28/2025 1:15 PM EDTFollow-Up [facility] Surgery Clinic [address] [place] [address] Donnie Cesar MD [address] [place] [address] Health MaintenanceDue DateLast DoneCommentsDiabetes: Retinopathy Screening 1999Varicella Vaccines (1 of 2 - 13+ 2-dose series)2002Diabetes: Urine Protein Nnjdgzeai53/17/2009Hepatitis B Vaccines (1 of 3 - 19+ 3-dose series)2008Pneumococcal Vaccine: Pediatrics (0 to 5 Years) and At-Risk Patients (6 to 64 Years) (1 of 2 - PCV)2008Zoster Vaccines (1 of 2) 2008HPV Vaccines (1 - Risk 3-dose SCDM series)2016HPV/Cotest 2019Cervical Cancer Ocrtqzifz78/06/2024Pap Smear/1COVID- 19 Vaccine ( - season)501/05/2021, 06/23/2020Influenza Vaccine (#1)509/, 11/16/2021, 01/01/2021, Additional history exists Diabetes: Hemoglobin A1C509/Depression Ccnayjrqc47/13/2026 12/28/2024dult Dibnrtf40HIB VaccinesAged OutNo longer eligible based on patient's [...] to complete this topic Procedures Procedure NamePriorityDate/TimeAssociated DiagnosisCommentsFL UPPER GI WITH KUB Nzsdmnn6001/26/2025 2:16 PM EST History of Isabel-en-Y gastric bypass POCT GLUCOSE METER UNSOLICITED LWXNBSOXqbhppa71/06/2025 11:46 AM EST POCT GLUCOSE METER UNSOLICITED CZBNSYDYtmnkwx50/06/2025 5:59 AM EST URXHnhojzw73/06/2025 5:11 AM EST BASIC METABOLIC XWOITNozvalq58/06/2025 5:11 AM EST POCT GLUCOSE METER UNSOLICITED AGIQBLSNrouyyg91/05/2025 11:27 PM EST POCT GLUCOSE METER UNSOLICITED TXSCSQCEkuylfu04/05/2025 5:[address] ABDOMEN PELVIS W IV VGZOGXUUDLZK19/05/2025 2:14 PM EST ECG 12-IFEMISUI65/05/2025 12:22 PM EST POCT GLUCOSE METER UNSOLICITED UYYUWYKKtwtjlp05/05/2025 11:44 AM EST XR ABDOMEN 1 MOMCKYTW25/05/2025 10:26 AM EST LACTIC ACID WITH 4 HOUR WNRNHSFQDN19/05/2025 10:20 AM EST TVCXGPF5212/20/2024 10:20 AM EST IRON AND VYGOLdltgkd91/05/2025 6:29 AM EST Anemia due to acute blood loss PHOSPHORUSAdd-On12/20/2024 6:29 AM EST RLBXzyswhm66/05/2025 6:29 AM EST BASIC METABOLIC NKWKLRifafrv66/05/2025 6:29 AM EST POCT GLUCOSE METER UNSOLICITED GTGJWAAKikfzyl58/05/2025 6:17 AM EST POCT GLUCOSE METER UNSOLICITED QLXJKPWWdjnzpw19/05/2025 12:05 AM EST POCT GLUCOSE METER UNSOLICITED ZIOFKADZabhrlo95/04/2025 5:57 PM EST FL SMALL BOWEL OCYCNPYTTL30/04/2025 1:15 PM EST POCT GLUCOSE METER UNSOLICITED KRZJLHKOarpfyv78/04/2025 11:09 AM EST PHOSPHORUSAdd-On12/19/2024 7:49 AM EST MAGNESIUMAdd-On12/19/2024 7:49 AM EST OSKVngicqp71/04/2025 7:49 AM EST BASIC METABOLIC JKTXPFtlnoey73/04/2025 7:49 AM EST POCT GLUCOSE METER UNSOLICITED JQRXLPTFktkmib18/04/2025 6:34 AM EST POCT GLUCOSE METER UNSOLICITED GBNCGHJWxlwhob31/04/2025 12:06 AM EST AK AN ELECTIVE ENDOTRACHEAL MYJXIYLrognli80/03/2025 7:16 PM EST REPAIR, HERNIA, HUOEFBPOWYAJ74/03/2025 7:08 PM EST Obstructed internal hernia LYSIS, LRATUOJSP08/03/2025 7:08 PM EST Obstructed internal hernia AK LAPS ABD PRTM&OMENTUM DX W/WO SPEC BR/WA SPX102/18/2024 7:08 PM EST Obstructed internal hernia POCT GLUCOSE METER UNSOLICITED AWEZMKZMijtsna11/03/2025 5:47 PM EST XR TRANSFER OF OUTSIDE LWZVRHtztzgd32/03/2025 1:10 PM EST XR TRANSFER OF OUTSIDE YWZXWTbrjyyu87/03/2025 1:10 PM EST XR TRANSFER OF OUTSIDE ANYMZAfedczq20/03/2025 1:10 PM EST XR TRANSFER OF OUTSIDE ALDGCJecdhxr46/03/2025 1:[address] TRANSFER OF OUTSIDE XHSAYMqnognu80/03/2025 1:[address] TRANSFER OF OUTSIDE ZHIDERfkwskp17/03/2025 1:[address] TRANSFER OF OUTSIDE ZTMALOrnshvn22/03/2025 1:[address] TRANSFER OF OUTSIDE JZGXNBqaeptw74/03/2025 1:[address] TRANSFER OF OUTSIDE FFBCGJdkygma90/03/2025 1:10 PM EST COMPREHENSIVE METABOLIC ZXHYMEitguou17/02/2025 1:05 PM EST ZFIUuldrsq84/02/2025 1:05 PM EST XR CHEST 1 LKTOLboudfx52/02/2025 12:58 PM EST EUS (UPPER) W/ ZRCMuncfog53/30/2025 9:59 AM EDT Common bile duct dilatation HISTOLOGY - TISSUE FRVXExftcah65/30/2025 9:49 AM EDT Common bile duct dilatation AK AN ELECTIVE ENDOTRACHEAL RSGFPORgkhpqe54/30/2025 9:25 AM EDT POCT GLUCOSE METER UNSOLICITED MGVPNZTKtxnyag08/30/2025 7:47 AM EDT HEPATIC FUNCTION AJWSZBhebwrv61/30/2025 7:40 AM EDT URINALYSIS MICROSCOPIC WITH REFLEX YQRGEHLLPNR23/12/2025 8:27 PM EDT SERUM QUPDYDUXUKECQDU62/12/2025 8:27 PM EDT URINALYSIS WITH REFLEX SKDKGVPYRYG32/12/2025 8:27 PM EDT XR CHEST 1 THECZJWI49/12/2025 8:17 PM EDT ECG 12-LHNYRIVM80/12/2025 8:13 PM EDT CBC WITH AUTO PQVVPOGNRHZGVLMM50/12/2025 8:05 PM EDT HIGH SENSITIVITY TROPONIN ISTAT1 8:05 PM EDT FAFERKOSTW21/12/2025 8:05 PM EDT COMPREHENSIVE METABOLIC UWHLWXGCE29/12/2025 8:05 PM EDT CBC AND IWRUQKAFQIYJFHFW84/12/2025 8:05 PM EDT HEPATIC FUNCTION PANELAdd-On11/17/2024 5:17 AM EDT MAGNESIUMPending Bcbarystz33/03/2025 5:17 AM EDT CBCPending Wegrzvjkk03/03/2025 5:17 AM EDT BASIC METABOLIC PANELPending Xnvsjzapx36/03/2025 5:17 AM EDT MR ABDOMEN WO CONTRAST JLVXYJOR06/02/2025 8:32 PM EDT ECG 12-NHUKRkymqpb38/02/2025 9:55 AM EDT HEPATIC FUNCTION PANELSTAT Add-on11/16/2024 5:36 AM EDT HIGH SENSITIVITY TROPONIN IAdd-On11/16/2024 5:36 AM EDT PAIUazehil48/02/2025 5:36 AM EDT BASIC METABOLIC EIRYOFyjgzuc92/02/2025 5:36 AM EDT XR CHEST 1 SEQMEtazyij99/29/2025 12:51 PM EDT POCT GLUCOSE METER UNSOLICITED TTHUJYKZjrwsdy40/29/2025 11:08 AM EDT HOME O2 EVAL (DESATURATION SCREEN)Dinjiuj9411/13/2024 10:32 AM EDTHIGH SENSITIVITY TROPONIN IPending Objftxpkc86/29/2025 7:03 AM EDT BASIC METABOLIC PANELPending Lzimjxpco52/29/2025 7:03 AM EDT CBCPending Lyyjujygf35/29/2025 7:03 AM EDT POCT GLUCOSE METER UNSOLICITED QEXOBEBScjooya23/29/2025 7:01 AM EDT HIGH SENSITIVITY TROPONIN IPending Zuxdnvqwi57/29/2025 12:17 AM EDT POCT GLUCOSE METER UNSOLICITED VSNUOLAUuxowra75/29/2025 12:16 AM EDT HIGH SENSITIVITY TROPONIN IPending Gpfzwzpwd13/28/2025 6:28 PM EDT POCT GLUCOSE METER UNSOLICITED UZMGNDQTikwkvl92/28/2025 6:18 PM EDT ECG 12-GQMIUbsvhfi60/28/2025 1:41 PM EDT HIGH SENSITIVITY TROPONIN ISTAT11/12/2024 1:34 PM EDT HIGH SENSITIVITY TROPONIN IPending Kwooixsip58/28/2025 10:56 AM EDT POCT GLUCOSE METER UNSOLICITED HFVYUNYHkzhsdh18/28/2025 10:55 AM EDT HIGH SENSITIVITY TROPONIN IPending Zqwfqpmaz80/28/2025 6:30 AM EDT BASIC METABOLIC PANELPending Gsfqtkuan58/28/2025 6:30 AM EDT CBCPending Zsxbxledo90/28/2025 6:30 AM EDT POCT GLUCOSE METER UNSOLICITED UYNVMPSWojpxhh60/28/2025 6:27 AM EDT HIGH SENSITIVITY TROPONIN IPending Qdmboipaa72/28/2025 12:00 AM EDT POCT GLUCOSE METER UNSOLICITED LAFUTGQIoycjgl86/27/2025 11:56 PM EDT CTA CHEST W IV QQDKBWAWFWUG77/27/2025 8:55 PM EDT ECG 12-USDJOKOL62/27/2025 6:15 PM EDT HIGH SENSITIVITY TROPONIN IPending Cembzwlmk24/27/2025 6:14 PM EDT POCT GLUCOSE METER UNSOLICITED ZXJPRVRQvgcdnw64/27/2025 5:16 PM EDT C-REACTIVE PROTEINPending Iwvzsdekr76/27/2025 3:29 PM EDT POCT GLUCOSE METER UNSOLICITED UJXEWQZPumbvts19/27/2025 12:49 PM EDT SEDIMENTATION RATEAdd-On11/11/2024 6:39 AM EDT BASIC METABOLIC PANELPending Siizabzfj94/27/2025 6:39 AM EDT CBCPending Slxssvhdf92/27/2025 6:39 AM EDT POCT GLUCOSE METER UNSOLICITED QRLLKZCUdhkfdu13/27/2025 6:35 AM EDT POCT GLUCOSE METER UNSOLICITED ZDPLKPZUgxhfzx21/27/2025 12:55 AM EDT HIGH SENSITIVITY TROPONIN IPending Wvrwozktu89/26/2025 8:50 PM EDT POCT GLUCOSE METER UNSOLICITED TPXFSXAFxuugub76/26/2025 6:24 PM EDT ECG 12-PLZNCHYF63/26/2025 3:11 PM EDT HIGH SENSITIVITY TROPONIN IPending Ypfsgtbge17/26/2025 2:22 PM EDT POCT GLUCOSE METER UNSOLICITED KHIMTSFUspogfp44/26/2025 1:06 PM EDT LEXISCAN STRESS MYOCARDIAL PERFUSION JNQNAROUtsnyxc90/26/2025 11:23 AM EDT XR CHEST 1 MXBULluewth59/26/2025 9:01 AM EDT ECG 12-BTYDFnvrhrp86/26/2025 8:09 AM EDT HIGH SENSITIVITY TROPONIN ISTAT11/10/2024 7:44 AM EDT POCT GLUCOSE METER UNSOLICITED EJPSPRNMzbwjvl88/26/2025 7:39 AM EDT POCT GLUCOSE METER UNSOLICITED IFGFYOBUalabsd02/25/2025 9:21 PM EDT POCT GLUCOSE METER UNSOLICITED EMOWXSEDqciddc59/25/2025 4:12 PM EDT CBC WITH AUTO YHDREAVITTUURwpidix38/25/2025 2:09 PM EDT BONGVBQCKLznmyxg96/25/2025 2:09 PM EDT CBC AND FDHBZEGYFLMGDvuphkb11/25/2025 2:09 PM EDT BASIC METABOLIC XPKIBSzqtneb34/25/2025 2:09 PM EDT HIGH SENSITIVITY TROPONIN SQqihwsw49/25/2025 2:09 PM EDT ECG 12-ODKWOdfqose52/25/2025 12:39 PM EDT POCT GLUCOSE METER UNSOLICITED XEQLWRHCcllfkr45/23/2025 4:00 PM EDT POCT GLUCOSE METER UNSOLICITED GGWLOZSBgcitdg02/23/2025 11:55 AM EDT ECG 12-WYTFAzlufws26/23/2025 11:48 AM EDT POCT GLUCOSE METER UNSOLICITED QYYAFYVAahsytj96/23/2025 7:43 AM EDT IOVXFGH1211/07/2024 6:27 AM EDT HIGH SENSITIVITY TROPONIN ISTAT Add-on11/07/2024 4:50 AM EDT CALCIUM, SHHJWRPTklpubn06/23/2025 4:50 AM EDT MWRWUASOZQBwbvqas06/23/2025 4:50 AM EDT UYRKYWMOIXyqpcax57/23/2025 4:50 AM EDT BASIC METABOLIC FXZXPAosrnhm86/23/2025 4:50 AM EDT POCT GLUCOSE METER UNSOLICITED EIXXHFKNydjgme21/22/2025 10:59 PM EDT POCT GLUCOSE METER UNSOLICITED AREEOJPBiekwgs83/22/2025 8:22 PM EDT POCT GLUCOSE METER UNSOLICITED BVNXSXBRvlbmwf31/22/2025 5:05 PM EDT CALCIUM, IONIZEDPending Kbzscfjzr87/22/2025 12:24 PM EDT POCT GLUCOSE METER UNSOLICITED OYJLVJFUeilghp62/22/2025 12:19 PM EDT VASC US LOWER EXTREMITY PSEUDOANEURYSM DUPLEX GSNXDLgivcev53/22/2025 8:24 AM EDT POCT GLUCOSE METER UNSOLICITED OKQJKIXRozgpca06/22/2025 7:52 AM EDT CBC WITH AUTO DIFFERENTIALPending Lwoncjbeu42/22/2025 5:50 AM EDT CBC AND FLZEWBASHOSAVytnwgj79/22/2025 5:50 AM EDT PHOSPHORUSPending Pjouznbtf94/22/2025 5:50 AM EDT MAGNESIUMPending Dbnwgylyx12/22/2025 5:50 AM EDT BASIC METABOLIC PANELPending Vasotviek71/22/2025 5:50 AM EDT POCT GLUCOSE METER UNSOLICITED RVOUZGWVgtibsl75/21/2025 10:07 PM EDT POCT GLUCOSE METER UNSOLICITED LJNVSTMRojjwan16/21/2025 4:37 PM EDT POCT GLUCOSE METER UNSOLICITED SMOEUQJBgurmxv22/21/2025 11:36 AM EDT HEMOGLOBIN AND HEMATOCRIT, BLOODPending Gpycblzdy80/21/2025 9:01 AM EDT POCT GLUCOSE METER UNSOLICITED KYKWVRLCdougdf89/21/2025 8:36 AM EDT CBCPending Diqqhgjkc89/21/2025 3:48 AM EDT PHOSPHORUSPending Vtbnyzepf32/21/2025 3:48 AM EDT MAGNESIUMPending Cnqpuvesi26/21/2025 3:48 AM EDT BASIC METABOLIC PANELPending Cnlodmkhk82/21/2025 3:48 AM EDT CALCIUM, IONIZEDPending Tbfujwwvm31/21/2025 1:00 AM EDT HEMOGLOBIN AND HEMATOCRIT, BLOODPending Fxfpsomdu38/21/2025 12:54 AM EDT POCT GLUCOSE METER UNSOLICITED ZHCULLKScmrotg20/20/2025 10:33 PM EDT BASIC METABOLIC PANELSTAT Add-on11/04/2024 8:17 PM EDT HEMOGLOBIN AND HEMATOCRIT, BLOODPending Fvirdzteg06/20/2025 8:13 PM EDT POCT GLUCOSE METER UNSOLICITED AMEJMRUGimriaj81/20/2025 5:12 PM EDT TRANSFUSE RED BLOOD YWCNQVgtifsj42/20/2025 2:34 PM EDTECG 12-FYKJFYVA76/20/2025 1:59 PM EDT HEMOGLOBIN AND HEMATOCRIT, BLOODPending Hpevxpkgk66/20/2025 1:38 PM EDT BASIC METABOLIC SZDDQTKSE40/20/2025 1:38 PM EDT HIGH SENSITIVITY TROPONIN ISTAT11/04/2024 1:38 PM EDT POCT GLUCOSE METER UNSOLICITED JUBATDWLsplihr05/20/2025 1:06 PM EDT CTA ABDOMEN PELVIS W IV LTXGUCGGBytyxyb57/20/2025 12:48 PM EDT POCT GLUCOSE METER UNSOLICITED ESAPAZFHzazaux05/20/2025 9:20 AM EDT POCT GLUCOSE METER UNSOLICITED OWDMGGNCjzozpc26/20/2025 5:10 AM EDT CBCPending Lpkuzgjgr38/20/2025 5:05 AM EDT CALCIUM, IONIZEDPending Wdecgxozu69/20/2025 5:05 AM EDT PHOSPHORUSPending Oyiodmnza68/20/2025 5:05 AM EDT MAGNESIUMPending Frsflhbnc16/20/2025 5:05 AM EDT BASIC METABOLIC PANELPending Ugewkipju18/20/2025 5:05 AM EDT POCT GLUCOSE METER UNSOLICITED NRGYILQDfjalns42/20/2025 12:12 AM EDT HEMOGLOBIN AND HEMATOCRIT, BLOODPending Coepzscvb26/20/2025 12:09 AM EDT POCT GLUCOSE METER UNSOLICITED WNQJJWUXeniccp33/19/2025 9:52 PM EDT HEMOGLOBIN AND HEMATOCRIT, BLOODPending Lkyssrcyx85/19/2025 6:34 PM EDT POCT GLUCOSE METER UNSOLICITED RKUSAOKAxezqhv40/19/2025 5:35 PM EDT CBCPending Ogeodfyur90/19/2025 1:23 PM EDT POCT GLUCOSE METER UNSOLICITED ZXGRXZYHusrhqz22/19/2025 11:35 AM EDT POCT GLUCOSE METER UNSOLICITED IFTJHAEBjrnnac44/19/2025 7:46 AM EDT CBCPending Iclbjtikf33/19/2025 4:46 AM EDT CALCIUM, IONIZEDPending Gwzclczba13/19/2025 4:46 AM EDT PHOSPHORUSPending Zioahbwpu28/19/2025 4:46 AM EDT MAGNESIUMPending Cpycesgie60/19/2025 4:46 AM EDT BASIC METABOLIC PANELPending Tdxbufewm93/19/2025 4:46 AM EDT INTEM WOryopqh87/19/2025 1:58 AM EDT HEPTEM YVwssuyp36/19/2025 1:58 AM EDT EXTEM GHkhfgvo88/19/2025 1:58 AM EDT FIBTEM AXwspgvs43/19/2025 1:58 AM EDT CEWFMPW9311/03/2024 12:07 AM EDT ROJSYZRMIACYTH42/19/2025 12:07 AM EDT OQXRWMRRZCAZO64/19/2025 12:07 AM EDT BASIC METABOLIC TRHPEMKQA40/19/2025 12:07 AM EDT RDWZLXNPUJHIHB40/19/2025 12:07 AM EDT PROTIME-ZEAOLZV71/ 12:07 AM EDT POCT GLUCOSE METER UNSOLICITED HCNZGPMWsvkxhy82/18/2025 10:48 PM EDT TRANSFUSE RED BLOOD ATQQSWpnilnb05/18/2025 9:30 PM EDTTRANSFUSE RED BLOOD CELLS Nquhyzc9911/02/2024 9:10 PM EDTPR AN ELECTIVE ENDOTRACHEAL CLZZFMCirjpvr64/18/2025 8:56 PM EDT REPAIR, YGBVXZQDHGAEOY47/18/2025 8:44 PM EDT Hematoma Right Groin EXPLORATION, DGVLOSMU44/18/2025 8:44 PM EDT Hematoma Right Groin POCT GLUCOSE METER UNSOLICITED KBNTRPKXmivdrg95/18/2025 8:30 PM EDT PREPARE QRVEmbmvvd51/18/2025 8:05 PM EDT PREPARE OVJTedxhjf39/18/2025 8:05 PM EDT TYPE AND SCREENPending Zjcvnqaap51/18/2025 8:02 PM EDT CBCPending Ukjdmvkwb29/18/2025 8:02 PM EDT RED WNGDulaivu86/18/2025 8:00 PM EDT EXTRA NLGASUtwkvrd60/18/2025 8:00 PM EDT ACTIVATED CLOTTING PAZSMtxjylm91/18/2025 4:43 PM EDT POCT ACTIVATED CLOTTING MQQDOjbdwth18/18/2025 4:40 PM EDT POCT ACTIVATED CLOTTING BUIQSnhgohl31/18/2025 4:19 PM EDT ACTIVATED CLOTTING IFFCUzzryoa67/18/2025 4:13 PM EDT ACTIVATED CLOTTING MWJQPqcpzrd69/18/2025 2:56 PM EDT INSTANT WAVE FREE RATIO (IFR)Gqvqecg3811/02/2024 2:53 PM EDT Spontaneous dissection of coronary artery ULTRASOUND - VHYRHISWEhhivwr19/18/2025 2:53 PM EDT Spontaneous dissection of coronary artery CORONARY GLZSYACCBVSGmkcoxp21/18/2025 2:53 PM EDT Spontaneous dissection of coronary artery ACTIVATED CLOTTING JZEDTmpnswf35/18/2025 2:24 PM EDT ECG 12-TCJQDBCS34/18/2025 1:18 PM EDT HIGH SENSITIVITY TROPONIN ISTAT11/02/2024 1:01 PM EDT POCT GLUCOSE METER UNSOLICITED QXMYVEMSvcridj50/18/2025 11:07 AM EDT POCT GLUCOSE METER UNSOLICITED VXJRODKJpnzyfv12/18/2025 7:31 AM EDT LIGHT GREEN NWALyckfnh22/18/2025 6:15 AM EDT EXTRA HTOPAKfkhbhp73/18/2025 6:15 AM EDT CBCPending Yzrsdfiyx53/18/2025 6:15 AM EDT POCT GLUCOSE METER UNSOLICITED CINDOEHPlfxpip26/17/2025 8:42 PM EDT POCT GLUCOSE METER UNSOLICITED KKNIVVJWmbiwnq13/17/2025 6:04 PM EDT ACTIVATED CLOTTING RMTVFqmarje14/17/2025 4:36 PM EDT POCT ACTIVATED CLOTTING BZZECeejtbw49/17/2025 4:33 PM EDT ULTRASOUND - LAANRHKOLxpglki59/17/2025 1:30 PM EDT NSTEMI (non-ST elevated myocardial infarction) (CMS/HCC) CORONARY JRVDXFRMSZWJyrisis02/17/2025 1:30 PM EDT NSTEMI (non-ST elevated myocardial infarction) (CMS/HCC) ACTIVATED CLOTTING XJTTTgsdaih48/17/2025 1:27 PM EDT ACTIVATED CLOTTING WVFPOzgvtek70/17/2025 1:14 PM EDT ECG 12-IKBSHhxcpjn02/17/2025 12:09 PM EDT POCT GLUCOSE METER UNSOLICITED FIBQCYAOzctilh65/17/2025 11:30 AM EDT BASIC METABOLIC PANELPending Msjonhnln38/17/2025 10:10 AM EDT YAZUKWI9711/01/2024 10:10 AM EDT POCT GLUCOSE METER UNSOLICITED LYLHMZRZmtdatc62/17/2025 7:43 AM EDT HIGH SENSITIVITY TROPONIN VBqbmo3411/01/2024 6:42 AM EDT ANTI-FACTOR XAPending Onwllqjce40/17/2025 6:04 AM EDT POCT GLUCOSE METER UNSOLICITED VLJARGUPykgrcl84/17/2025 6:02 AM EDT TOXICOLOGY PANEL CWAIQYfqjmhp66/17/2025 2:12 AM EDT POCT GLUCOSE METER UNSOLICITED DWQCCSQZiydfhx41/16/2025 8:20 PM EDT LEFT HEART CIMDAhqhapb02/16/2025 7:34 PM EDT NSTEMI (non-ST elevated myocardial infarction) (CMS/HCC) CORONARY ZDFPYVYIPWWQlrwgpb69/16/2025 7:34 PM EDT NSTEMI (non-ST elevated myocardial infarction) (CMS/HCC) POCT GLUCOSE METER UNSOLICITED XGFQJWJHjhiskq36/16/2025 11:55 AM EDT LIMITED ECHO (TTE) W/ COLOR FLOW AND IMAGING JLLWVOfmmefp98/16/2025 11:40 AM EDT ECG 12-BRYVLlqxdbd38/16/2025 8:47 AM EDT ECG 12-FEZYFldhplt64/16/2025 8:25 AM EDT POCT GLUCOSE METER UNSOLICITED PDBTOUZCrnadvv18/16/2025 7:22 AM EDT HEMOGLOBIN C0SRji-Oc07/16/2025 6:27 AM EDT LIPID PANELAdd-10/31/2024 6:27 AM EDT MAGNESIUMAdd-On10/31/2024 6:27 AM EDT ANTI-FACTOR XHDupoyok01/16/2025 6:27 AM EDT DIHTknznhc19/16/2025 6:27 AM EDT BASIC METABOLIC NNFFKRhzidhx27/16/2025 6:27 AM EDT HIGH SENSITIVITY TROPONIN ZExkqh5310/31/2024 6:27 AM EDT ANTI-FACTOR OCPkowbtg46/16/2025 1:38 AM EDT HIGH SENSITIVITY TROPONIN DMxwsi8010/31/2024 1:38 AM EDT POCT GLUCOSE METER UNSOLICITED ASMMMEOIvgxjby66/15/2025 9:12 PM EDT ECG 12-VFGXJVJX22/15/2025 8:00 PM EDT ANTI-FACTOR XASTAT Add-on10/30/2024 7:11 PM EDT DRMFKRGR21/15/2025 7:11 PM EDT TSH3 REFLEX TO PD5CYVD0510/30/2024 7:11 PM EDT CBC WITH AUTO BBKDOOFLDMOXNIAX43/15/2025 7:11 PM EDT B-TYPE NATRIURETIC YLTIQRPWTER75/15/2025 7:11 PM EDT CBC AND DKEZCFXJZHJPUJUO53/15/2025 7:11 PM EDT PROTIME-PFPULFG7310/30/2024 7:11 PM EDT EPTJXXJGRFQPUZ31/15/2025 7:11 PM EDT HIGH SENSITIVITY TROPONIN ISTAT10/30/2024 7:11 PM EDT YFVNGYODDBFOI90/15/2025 7:11 PM EDT COMPREHENSIVE METABOLIC LNBDUGFRK15/15/2025 7:11 PM EDT from Last 3 Months Results * FL upper GI w KUB (01/26/2025 2:16 PM EST)Anatomical RegionLateralityModality Radio FluoroscopySpecimen (Source)Anatomical Location / LateralityCollection Method / VolumeCollection TimeReceived Time01/26/2025 2:39 PM EST Impressions 01/26/2025 2:52 PM EST * Postsurgical changes consistent with Isabel-en-Y gastric bypass without persistent filling defect, evidence of contrast leak or stricture. No hiatal hernia or significant gastroesophageal reflux. Approved by:Modesto Lovell01/26/2025 2:44 PM. IJanak,have reviewed the image(s) and agree with the [...] small bowel. IMPRESSION: *Postsurgical changes consistent with Siabel-en-Y gastric bypass without persistent filling defect, evidence of contrast leak or stricture. Nohiatal hernia or significant gastroesophageal reflux. Approved by:Modesto Lovell01/26/2025 2:44 PM. Janak Saunders,have reviewed the image(s) and agree with the findings inthis report. Electronically signed: Janak Limon. Authorizing ProviderResult TypeResult StatusJustin Cesar MDIMG FLUOROSCOPY PROCEDURESFinal Result * POCT glucose meter (12/21/2024 11:46 AM EST) Only the most recent of64 resultswithin the time period is included. ComponentValueRef RangeTest MethodAnalysis TimePerformed AtPathologist Signature Glucose FSM77712 - 105 mg/dL12/21/2024 12:16 PM [facility] ([facility]) Comment:elacumskySpecimen (Source)Anatomical Location / LateralityCollection Method / VolumeCollection TimeReceived TimeBloodCapillary blood specimen / Pfkfofw0012/21/2024 11:46 AM EST12/21/2024 12:16 PM EST Narrative [facility] ([facility]) - 12/21/2024 12:16 PM EST Waived Testing in the ED is performed under the ED CLIA certificate #[id number]. Authorizing ProviderResult TypeResult StatusMallory Tyler ROBLERO BLOOD ORDERABLESFinal ResultPerforming OrganizationAddressCity/State/ZIP CodePhone Number [facility] ([facility]) [address] [place] [address] * (ABNORMAL) CBC (12/21/2024 5:11 AM EST) Only the most recent of20 resultswithin the time period is included. ComponentValueRef RangeTest MethodAnalysis TimePerformed AtPathologist Signature Auto WBC2.92(L)4.00 - 10.60 10*3/uL12/21/2024 5:49 AM [facility] ([facility])RBC3.19(L)3.80 - 5.00 10*6/uL12/21/2024 5:49 AM [facility] ([facility])Hemoglobin9.5(L)12.0 - 15.0 g/dL12/21/2024 5:49 AM [facility] ([facility])Dypquxxsgc73.7(L)36.0 - 45.0 %12/21/2024 5:49 AM [facility] ([facility])MCV90.082.0 - 98.0 fL12/21/2024 5:49 AM [facility] ([facility])MCH 29.827.0 - 33.0 pg12/21/2024 5:49 AM [facility] ([facility])MCHC33.132.0 - 35.0 g/dL12/21/2024 5:49 AM [facility] ([facility])RDW15.5(H)11.5 - 15.0 % 12/21/2024 5:49 AM [facility] ([facility])Nczsrbtzl109867 - 400 10*3/uL 12/21/2024 5:49 AM [facility] ([facility])Specimen (Source)Anatomical Location / LateralityCollection Method / VolumeCollection TimeReceived TimeBlood Venous blood specimen / UnknownExisting Catheter / Mpdzybt8112/21/2024 5:11 AM EST 12/21/2024 5:34 AM EST Narrative Authorizing ProviderResult TypeResult StatusDajermaine Dowd MDLAB BLOOD ORDERABLES Final ResultPerforming OrganizationAddressCity/State/ZIP CodePhone Number [facility] ([facility]) [address] [place] [address] * (ABNORMAL) Basic metabolic panel (12/21/2024 5:11 AM EST) Only the most recent of19 resultswithin the time period is included. ComponentValueRef RangeTest MethodAnalysis TimePerformed AtPathologist Signature Gplwbk400965 - 145 mmol/L102/21/2024 6:20 AM [facility] ([facility]) Potassium3.93.5 - 5.1 mmol/L102/21/2024 6:20 AM [facility] ([facility]) Bxbeyzlb01023 - 107 mmol/L102/21/2024 6:20 AM [facility] ([facility])CO228 21 - 31 mmol/L102/21/2024 6:20 AM [facility] ([facility])FOR872 - 25 mg/dL 12/21/2024 6:20 AM [facility] ([facility])Creatinine0.55(L)0.60 - 1.20 mg/dL12/21/2024 6:20 AM [facility] ([facility])Xxeycbs186(H)70 - 100 mg/dL12/21/2024 6:20 AM [facility] ([facility])Calcium8.0(L)8.6 - 10.3 mg/dL12/21/2024 6:20 AM [facility] ([facility])Anion Jpi174 - 20 mmol/L 12/21/2024 6:20 AM [facility] ([facility])iAUW307.5>60.0 mL/min/1.73m*2 12/21/2024 6:20 AM [facility] ([facility])Comment:[facility]???s estimated glomerular filtration rate (eGFR) [...] group of individuals. BUN/Creatinine Ratio21.8102/21/2024 6:20 AM [facility] ([facility])Specimen (Source)Anatomical Location / LateralityCollection Method / VolumeCollection TimeReceived TimeBloodVenous blood specimen / UnknownExisting Catheter / Unknown 12/21/2024 5:11 AM EST12/21/2024 5:34 AM EST Narrative Authorizing ProviderResult TypeResult StatusDalun Nile ROBLERO BLOOD ORDERABLES Final ResultPerforming OrganizationAddressCity/State/ZIP CodePhone Number [facility] ([facility]) [address] [place] [address] * CT abdomen pelvis w IV contrast [...] Rai Crespo. Authorizing ProviderResult TypeResult StatusJamie Km [facility] CT PROCEDURES Final Result * ECG 12 lead (12/20/2024 12:22 PM EST) Only the most recent of15 resultswithin the time period is included. ComponentValueRef RangeTest MethodAnalysis TimePerformed AtPathologist Signature Ventricular Eylu46SKQWT MUSEAtrial Pfmq73GEMNO MUSEPR Bssymeyz090nvLM MUSEQRS BSZUSPZP27cmRR MUSEQT Pktdynot036awZW MUSEQTC CALCULATION(ANJUM)472msGE MUSEP Jjhr00hgrwhgrIO MUSER-Utek17prxppvdGA MUSET Wave Jhuj35sevrotvOE MUSESpecimen (Source)Anatomical Location / LateralityCollection Method / [...] ORDERABLES Final ResultPerforming OrganizationAddressCity/State/ZIP CodePhone Number [facility]SE * XR abdomen 1 view (12/20/2024 10:26 [...] SignatureLactate1.60.5 - 2.2 mmol/L102/20/2024 11:16 AM [facility] ([facility])Specimen (Source) Anatomical Location / LateralityCollection Method / VolumeCollection Time Received TimeBloodVenous blood specimen / UnknownExisting Catheter / Unknown 12/20/2024 10:20 AM EST12/20/2024 10:31 AM EST Narrative Authorizing ProviderResult TypeResult StatusJamie Km PA-CLAB BLOOD ORDERABLESFinal ResultPerforming OrganizationAddressCity/State/ZIP CodePhone Number [facility] ([facility]) [address] [place] [address] * Iron and TIBC (12/20/2024 6:29 AM EST)ComponentValueRef RangeTest Method Analysis TimePerformed AtPathologist EngapvcvcDzai8958 - 212 ug/dL12/20/2024 9:44 AM [facility] ([facility])PXJP864628 - 450 ug/dL12/20/2024 9:44 AM [facility] ([facility])Iron Cegprcfiqd9630 - 50 %12/20/2024 9:44 AM EST [facility] ([facility])VPGT032.0155.0 - 355.0 ug/dL12/20/2024 9:44 AM EST [facility] ([facility])Specimen (Source)Anatomical Location / Laterality Collection Method / VolumeCollection TimeReceived TimeBloodVenous blood specimen / UnknownExisting Catheter / Msgklob4112/20/2024 6:29 AM EST12/20/2024 6:29 AM EST Narrative Authorizing ProviderResult TypeResult StatusChrisadalberto Collins [facility] BLOOD ORDERABLESFinal ResultPerforming OrganizationAddressCity/State/ZIP CodePhone Number [facility]) [address] [place] [address] * Phosphorus (12/20/2024 6:29 AM EST) Only the most recent of9 resultswithin the time period is included. ComponentValueRef RangeTest MethodAnalysis TimePerformed AtPathologist Signature Phosphorus2.72.5 - 5.0 mg/dL12/20/2024 6:59 AM [facility] Specimen (Source)Anatomical Location / LateralityCollection Method / Volume Collection TimeReceived TimeBloodVenous blood specimen / UnknownExisting Catheter / Hidhydf5212/20/2024 6:29 AM EST12/20/2024 6:29 AM EST Narrative Authorizing ProviderResult TypeResult StatusBenja ROBLERO BLOOD ORDERABLES Final ResultPerforming OrganizationAddressCity/State/ZIP CodePhone Number [facility] [address] [place] [address] * [place] small bowel series (12/19/2024 1:15 [...] from internal hernia repair Comparison: None. Findings: Social Media Project Manager image demonstrates enteric catheter tip in the stomach with a nonspecific bowel gas pattern. There is contrast seen within the colon at 4 hours compatible with no high-grade or complete small bowel obstruction. Procedure Note Ty Meyer MD - 12/19/2024 Report Study: FL SMALL BOWEL SERIES Sign And Symptoms:Abdominal pain. Bowel obstruction. . post op frominternal hernia repair Comparison: None. Findings: Social Media Project Manager image demonstrates enteric catheter tip in the [...] Signature Magnesium2.01.9 - 2.7 mg/dL12/19/2024 9:55 AM [facility] ([place]) Specimen (Source)Anatomical Location / LateralityCollection Method / Volume Collection TimeReceived TimeBloodVenous blood specimen / UnknownExisting Catheter / Duuzwtb1612/19/2024 7:49 AM EST12/19/2024 8:14 AM EST Narrative Authorizing ProviderResult TypeResult StatusDajermaine ROBLERO BLOOD ORDERABLES Final ResultPerforming OrganizationAddressCity/State/ZIP CodePhone Number [facility] ([facility]) [address] [place] [address] * [place] AN ELECTIVE ENDOTRACHEAL AIRWAY (12/18/2024 7:16 PM EST) Narrative Ayanna Mims CAA - 12/18/2024 7:16 PM EST OR[place]O Jones 12/18/2024 7:24 PM Airway Date/Time: 12/18/2024 7:16 PM Reason: elective Airway not difficult General Information and Staff Patient location during procedure: [place] Anesthesiologist: Josue Walters MD Resident/MBA INTERN/CAA: ORLANDO Jones Performed: resident/MBA INTERN/CAA Patient Condition Indications for airway management: anesthesia [...] a result. Authorizing ProviderResult TypeResult StatusDajermaine Dowd MDIMG XR PROCEDURESFinal ResultPerforming OrganizationAddressCity/State/ZIP CodePhone [...] a result. Authorizing ProviderResult TypeResult StatusDajermaine Dowd MDIMG CT PROCEDURESFinal ResultPerforming OrganizationAddressCity/State/ZIP CodePhone Number IMAGING * (ABNORMAL) Comprehensive metabolic panel (12/17/2024 1:05 PM EST) Only the most recent of3 resultswithin the time period is included. ComponentValueRef RangeTest MethodAnalysis TimePerformed AtPathologist Signature [id number] - 145 mmol/L102/17/2024 1:29 PM [facility] ([facility]) Potassium3.0(L)3.5 - 5.1 mmol/L102/17/2024 1:29 PM [facility] ([facility]) Pogaxdfj503(H)98 - 107 mmol/L102/17/2024 1:29 PM [facility] ([facility])CO2 2321 - 31 mmol/L102/17/2024 1:29 PM [facility] ([facility])Anion Gap97 - 20 mmol/L102/17/2024 1:29 PM [facility] ([facility])DZJ738 - 25 mg/dL 12/17/2024 1:29 PM [facility] ([facility])Creatinine0.59(L)0.60 - 1.20 mg/dL12/17/2024 1:29 PM [facility] ([facility])BUN/Creatinine Ratio22.0 12/17/2024 1:29 PM [facility] ([facility])[place]7190 - 100 mg/dL 12/17/2024 1:29 PM [facility] ([facility])Calcium7.8(L)8.6 - 10.3 mg/dL 12/17/2024 1:29 PM [facility] ([facility])ZJX4637 - 39 U/L102/17/2024 1:29 PM [facility] ([facility])ALT (SGPT)157 - 52 U/L102/17/2024 1:29 PM [facility] ([facility])Alkaline Zgdeexfccfq2158 - 104 U/L102/17/2024 1:29 PM [facility] ([facility])Total Protein5.4(L)6.0 - 8.3 g/dL12/17/2024 1:29 PM [facility] ([facility])Albumin3.4(L)3.5 - 5.7 g/dL12/17/2024 1:29 PM [facility] ([facility])Total Bilirubin0.40.3 - 1.0 mg/dL12/17/2024 1:29 PM [facility] ([facility])wMNN447.5>60.0 mL/min/1.73m* 1:29 PM [facility] ([facility])Comment:[facility]???s estimated glomerular filtration rate (eGFR) [...] 1:29 PM EST Narrative Authorizing ProviderResult TypeResult StatusMallorkatarina ROBLERO BLOOD ORDERABLESFinal ResultPerforming OrganizationAddressCity/State/ZIP CodePhone Number [facility] ([place]) [address] [place], [place] [id number] * XR chest 1 view (12/17/2024 12:58 [...] signed: Rai Crespo. Authorizing ProviderResult TypeResult Tasia Scott MDG XR PROCEDURES Final Result * EUS (Upper) [...] balloon dilation up to 20 mm at [facility] that was performed in September 2024. [...] MethodAnalysis TimePerformed AtPathologist SignatureCase ReportSurgical Pathology ?Case: [id number] ? Authorizing Provider: ??Braxton Bellamy MD ? Collected: ? 12/14/2024 09 ? Ordering Location: ? [facility] ? Received: ?12/15/2024 08 ? [facility]oscopy ? Pathologist: ? Pete Bolanos MD ? Specimen: ?Gastric, gastric Bx to r/o H-Pylori ? 12/19/2024 3:29 PM [facility] ([facility])Final DiagnosisStomach, biopsy: Gastric mucosa with focal erosion. No Helicobacter pylori identified, immunohistochemical stain with control. No intestinal metaplasia, dysplasia or malignancy identified.12/19/2024 3:29 PM [facility] ([facility]) at 1529 ESTinical InformationOrder Diagnoses K83.8 - Common bile duct dilatation [ICD-10-CM] 12/19/2024 3:29 PM [facility] ([facility])Gross DescriptionA. Gastric. Received in formalin labeled Juan Kong, Gastric BX to R/O H- pylori, handwritten: G are five renner ragged mucosal bits, 0.1 to 0.3 cm. The specimen is filtered and entirely submitted in a single cassette. Sabina Seay, Pathologists' Cwqbkcyab90/04/2025 3:29 PM [facility] ([facility])Microscopic DescriptionMicroscopic examination performed.12/19/2024 3:29 PM [facility] ([facility])DisclaimerThe interpretation of this case included the [...] Laboratory Improvement Amendments of 1998.12/19/2024 3:29 PM [facility] ([facility])Specimen (Source)Anatomical Location / Laterality Collection Method / VolumeCollection TimeReceived TimeBiopsy (Gastric)12/14/2024 9:49 AM EDT1 8:26 AM EDT Narrative Authorizing ProviderResult TypeResult StatusAli Mia ROBLERO PATHOLOGY ORDERABLESFinal ResultPerforming OrganizationAddressCity/State/ZIP CodePhone Number [facility]) [address] [place] [address] * AK AN ELECTIVE ENDOTRACHEAL AIRWAY (12/14/2024 9:25 AM EDT) Domenico Olga Abdullahi CAA - 12/14/2024 9:25 AM EDT [place] Restrepo 12/14/2024 9:33 AM Airway Date/Time: 12/14/2024 9:25 AM Reason: elective Airway not difficult General Information and Staff Patient location during procedure: [place] Anesthesiologist: Sergei Randall MD Resident/MBA INTERN/CAA: [place] Restrepo Performed: resident/MBA INTERN/CAA Patient Condition Indications for airway management: anesthesia [...] Total Bilirubin0.30.3 - 1.0 mg/dL12/14/2024 8:26 AM [facility] ([facility])Bilirubin, Direct0.10 - 0.2 mg/dL12/14/2024 8:26 AM [facility] ([facility])Alkaline Veraanypfva2576 - 104 U/L1 8:26 AM [facility] ([facility])XPO6313 - 39 U/L1 8:26 AM [facility] ([facility])ALT (SGPT)147 - 52 U/L1 8:26 AM [facility] ([facility])Total Protein 6.26.0 - 8.3 g/dL12/14/2024 8:26 AM [facility] ([facility])Albumin3.83.5 - 5.7 g/dL12/14/2024 8:26 AM [facility] ([facility])Specimen (Source) Anatomical Location / LateralityCollection Method / VolumeCollection Time Received TimeBloodVenous blood specimen / UnknownExisting Catheter / Unknown 12/14/2024 7:40 AM EDT1 7:49 AM EDT Narrative Authorizing ProviderResult TypeResult StatusKarmen ROBLERO BLOOD ORDERABLESFinal ResultPerforming OrganizationAddressCity/State/ZIP CodePhone Number [facility] ([facility]) [address] [place], [place] [phone] * Urinalysis microscopic with reflex culture (11/26/2024 8:27 PM EDT)Component ValueRef RangeTest MethodAnalysis TimePerformed AtPathologist SignatureRBC, Urine0-2None Seen, 0-2 /HPF11/26/2024 8:52 PM [facility] ([facility]) WBC, Urine0-2None Seen, 0-2 /HPF11/26/2024 8:52 PM [facility] ([facility])Squamous Epithelial, UrineNone SeenNone Seen, Occasional, Few /LPF 11/26/2024 8:52 PM [facility] ([facility])Mucus, UrineOccasionalNone Seen, Occasional, Few /LP11/26/2024 8:52 PM [facility] ([facility]) Specimen (Source)Anatomical Location / LateralityCollection Method / Volume Collection TimeReceived TimeUrineUrine specimen obtained by clean catch procedure / UnknownNon-blood Collection / Hjuudwv1711/26/2024 8:27 PM EDT 11/26/2024 8:33 PM EDT Narrative Authorizing ProviderResult TypeResult StatusDucelestina ROBLERO URINE ORDERABLES Final ResultPerforming OrganizationAddressCity/State/ZIP CodePhone Number [facility] ([facility]) [address] [place], [place] [id number] * (ABNORMAL) Urinalysis with reflex culture (11/26/2024 8:27 PM EDT)Component ValueRef RangeTest MethodAnalysis TimePerformed AtPathologist SignatureColor, UrineDark-Yellow(A)Colorless, Yellow, Light-Pmmqpt0111/26/2024 8:52 PM [facility] ([facility])Clarity, SkgqqIftayYplxk53/12/2025 8:52 PM [facility] ([facility])pH, Urine7.05.0 - 8.0 pH11/26/2024 8:52 PM [facility] ([facility])Leukocytes, UrineTrace(A)Edaxaldr65/12/2025 8:52 PM EDT [facility] ([facility])Nitrite, UrinePositive(A)Bqfrtwvh65/12/2025 8:52 PM [facility] ([facility])Protein, UrineNegativeNegative mg/dL11/26/2024 8:52 PM [facility] ([facility])Glucose, UrineNormalNormal mg/dL 11/26/2024 8:52 PM [facility] ([facility])Bilirubin, UrineSmall(A) Dvbvvxfj40/12/2025 8:52 PM [facility] ([facility])Specific [place], Urine1.0181.010 - 1.5958411/26/2024 8:52 PM [facility] ([facility]) Ketones, UrineNegativeNegative mg/dL11/26/2024 8:52 PM [facility] ([facility])Blood, UwvowSbgqakubOlmskytl64/12/2025 8:52 PM [facility] ([facility])Urobilinogen, Urine4.0(A)Normal mg/dL11/26/2024 8:52 PM [facility] ([facility])Specimen (Source)Anatomical Location / Laterality Collection Method / VolumeCollection TimeReceived TimeUrineUrine specimen obtained by clean catch procedure / UnknownNon-blood Collection / Unknown 11/26/2024 8:27 PM EDT1 8:33 PM EDT Narrative Authorizing ProviderResult TypeResult StatusDustin Jean-Paul ANNIKA URINE ORDERABLES Final ResultPerforming OrganizationAddressCity/State/ZIP CodePhone Number [facility] ([facility]) [address] [place] [address] * Serum Qualitative (11/26/2024 8:27 PM EDT)ComponentValueRef Range Test MethodAnalysis TimePerformed AtPathologist SignaturehCG, SerumNegative 11/26/2024 8:51 PM [facility] ([facility])Specimen (Source)Anatomical Location / LateralityCollection Method / VolumeCollection TimeReceived Time BloodVenous blood specimen / UnknownExisting Catheter / Chdjoqb0611/26/2024 8:27 PM EDT1 8:33 PM EDT Narrative Authorizing ProviderResult TypeResult StatusDustin Jean-Paul [facility] BLOOD ORDERABLES Final ResultPerforming OrganizationAddressCity/State/ZIP CodePhone Number [facility]) [address] [place] [id number] * HS Troponin I (11/26/2024 8:05 PM EDT) Only the most recent of21 resultswithin the time period is included. ComponentValueRef RangeTest MethodAnalysis TimePerformed AtPathologist Signature High Sensitivity Troponin I<2<15 ng/L1 8:42 PM [facility] ([facility])Specimen (Source)Anatomical Location / LateralityCollection Method / VolumeCollection TimeReceived TimeBloodVenous blood specimen / UnknownExisting Catheter / Rfdjdqv4411/26/2024 8:05 PM EDT1 8:13 PM EDT Narrative Authorizing ProviderResult TypeResult StatusDustin Jean-Paul [facility] BLOOD ORDERABLES Final ResultPerforming OrganizationAddressCity/State/ZIP CodePhone Number [facility]) [address] [place] [address] * (ABNORMAL) CBC auto differential (11/26/2024 8:05 PM EDT) Only the most recent of4 resultswithin the time period is included. ComponentValueRef RangeTest MethodAnalysis TimePerformed AtPathologist Signature Auto WBC5.234.00 - 10.60 10*3/uL11/26/2024 8:18 PM [facility] ([facility]) RBC3.37(L)3.80 - 5.00 10*6/uL11/26/2024 8:18 PM [facility] ([facility]) Hemoglobin9.9(L)12.0 - 15.0 g/dL11/26/2024 8:18 PM [facility] ([facility]) Xjkhaebszr62.9(L)36.0 - 45.0 %11/26/2024 8:18 PM [facility] ([facility]) MCV88.782.0 - 98.0 fL11/26/2024 8:18 PM [facility] ([facility])MCH29.427.0 - 33.0 pg11/26/2024 8:18 PM [facility] ([facility])MCHC33.132.0 - 35.0 g/dL11/26/2024 8:18 PM [facility] ([facility])RDW14.011.5 - 15.0 % 11/26/2024 8:18 PM [facility] ([facility])Neutrophils %44.540.0 - 72.0 % 11/26/2024 8:18 PM [facility] ([facility])Lymphocytes %40.520.0 - 45.0 % 11/26/2024 8:18 PM [facility] ([facility])Monocytes %10.95.0 - 12.0 % 11/26/2024 8:18 PM [facility] ([facility])Eosinophils %3.10.0 - 6.0 % 11/26/2024 8:18 PM [facility] ([facility])Basophils %0.80.0 - 1.0 % 11/26/2024 8:18 PM [facility] ([facility])Neutrophils Absolute2.331.60 - 7.60 10*3/uL11/26/2024 8:18 PM [facility] ([facility])Lymphocytes Absolute 2.121.20 - 4.00 10*3/uL11/26/2024 8:18 PM [facility] ([facility])Monocytes Absolute0.570.10 - 1.00 10*3/uL11/26/2024 8:18 PM [facility] ([facility]) Eosinophils Absolute0.160.00 - 0.50 10*3/uL11/26/2024 8:18 PM [facility] ([facility])Basophils Absolute0.040.00 - 0.20 10*3/uL11/26/2024 8:18 PM [facility] ([facility])Vjbnucwyr491491 - 400 10*3/uL11/26/2024 8:18 PM [facility] ([facility])nRBC %0.00 %11/26/2024 8:18 PM [facility] ([facility])Immature Granulocytes %0.20.0 - 1.0 %11/26/2024 8:18 PM [facility] ([facility])Immature Granulocytes Absolute0.010.00 - 0.20 10*3/uL11/26/2024 8:18 PM [facility] ([facility])Specimen (Source)Anatomical Location / LateralityCollection Method / VolumeCollection TimeReceived TimeBloodVenous blood specimen / UnknownExisting Catheter / Zjthtbx2611/26/2024 8:05 PM EDT 11/26/2024 8:13 PM EDT Narrative Authorizing ProviderResult TypeResult StatusDustin Jean-Paul ANNIKA BLOOD ORDERABLES Final ResultPerforming OrganizationAddressCity/State/ZIP CodePhone Number [facility]) [address] [place] [address] * Lipase (11/26/2024 8:05 PM EDT)ComponentValueRef RangeTest MethodAnalysis Time Performed AtPathologist NnxntvledYgeijv9236 - 82 U/L1 8:36 PM [facility])Specimen (Source)Anatomical Location / Laterality Collection Method / VolumeCollection TimeReceived TimeBloodVenous blood specimen / UnknownExisting Catheter / Rqsihox7211/26/2024 8:05 PM EDT1 8:13 PM EDT Narrative Authorizing ProviderResult TypeResult StatusDustin Jean-Paulladi ROBLERO BLOOD ORDERABLES Final ResultPerforming OrganizationAddressCity/State/ZIP CodePhone Number [facility]) [address] [place], [place] [phone] * MR abdomen wo contrast MRCP (11/16/2024 [...] PM EDT)ComponentValueRef Range Test MethodAnalysis TimePerformed AtPathologist YppvncgytWHV75.4(H)<=5.0 mg/L 11/13/2024 10:24 AM [facility] ([facility])Comment:Testing performed using a new methodology, turbidimetry. Normal ranges have been updated. Old normal range was <8 mg/L.Specimen (Source)Anatomical Location / Laterality Collection Method / VolumeCollection TimeReceived TimeBloodVenous blood specimen / UnknownExisting Catheter / Jtjpfze2211/11/2024 3:29 PM EDT11/11/2024 3:42 PM EDT Narrative Authorizing ProviderResult TypeResult StatusJonelle ROBLERO BLOOD ORDERABLESFinal ResultPerforming OrganizationAddressCity/State/ZIP CodePhone Number [facility] ([facility]) [address] [place] [address] * (ABNORMAL) Sedimentation rate (11/11/2024 6:39 AM EDT)ComponentValueRef Range Test MethodAnalysis TimePerformed AtPathologist SignatureSed Rate20(H)<20 mm/hr11/11/2024 12:20 PM [facility])Specimen (Source) Anatomical Location / LateralityCollection Method / VolumeCollection Time Received TimeBloodVenous blood specimen / UnknownExisting Catheter / Unknown 11/11/2024 6:39 AM EDT11/11/2024 6:43 AM EDT Narrative Authorizing ProviderResult TypeResult StatusJonelle Harrison MDLAB BLOOD ORDERABLESFinal ResultPerforming OrganizationAddressCity/State/ZIP CodePhone Number [facility] ([facility]) [address] [place] [address] * LEXISCAN STRESS MYOCARDIAL PERFUSION IMAGING (11/10/2024 11:23 AM EDT) Anatomical RegionLateralityModalityOtherSpecimen (Source)Anatomical Location / LateralityCollection Method / VolumeCollection TimeReceived Time11/10/2024 11:14 AM EDT Addenda Addendum by Mitul Moya MD on 11/10/2024 4:35 PM EDT 1 1 [facility] Heart Station [address] [place] [address] [phone] (fax) [facility] Stress Myocardial Perfusion Imaging- [facility] Name: JUAN KONG Study Date: 11/10/2024 11:14 AM B/P: / HR: Date of : 1990 Location: [facility] Height: 65 in. Age: 34 [...] Lexiscan Exercise Time: 03:02 Device: Treadmill HR [place] Used: 21.00 % HR Recovery: 2 bpm Frequent VE: 1 VE/min Resolution: Persisted Max HR: 98 bpm Target HR: 157 bpm Achieved: No Resting HR: 68 bpm Max Predicted HR: 185 bpm Achv. of Max Predicted: 52 % BP Max: 105/71 BP at Rest: 105/71 Max RPP: 62086 mmHg*bpm Max ST Lead: III Max ST Phase: Infusion Stage No. in Phase: [address] Stage: INFUS2:[address] Amplitude: -0.[address] Nye: -0.670 mV/s Max ST Time in Phase: [...] 1.00 mets 67 bpm 105/71 0.250 mm [id number] 00:30 1.00 mets 90 bpm 102/70 0.400 [...] 4 - Aneurysmal Procedure Staff Reading Group: [facility] Referring Physician: BRITT CALIX Stress Asphalt Tamping Machine Operator: Allyson Lake ??Wire Rope Fabrication Supervisor: Lauren Sanchez ??Ordering Physician: BACILIO CONWAY ??Advanced Practitioner: CRISTINA Gibson ??Nurse: Evelyne Abrams ?? Narrative 11/10/2024 4:35 PM EDT 1 1 [facility] Heart Station [address] [place] [id number] [phone] (fax) [facility] Stress Myocardial Perfusion [facility]- [facility] Name: JUAN KONG Study Date: 11/10/2024 11:14 AM B/P: / HR: Date of : 1990 Location: [facility] Height: 65 in. Age: 34 [...] Lexiscan Exercise Time: 03:02 Device: Treadmill HR [place] Used: 21.00 % HR Recovery: 2 bpm Frequent VE: 1 VE/min Resolution: Persisted Max HR: 98 bpm Target HR: 157 bpm ?? Achieved: No Resting HR: 68 bpm Max Predicted HR: 185 bpm Achv. of Max Predicted: 52 % BP Max: 105/71 BP at Rest: 105/71 Max RPP: 66426 mmHg*bpm Max ST Lead: III Max ST Phase: Infusion Stage No. in Phase: [address] Stage: INFUS2:[address] Amplitude: -0.[address] Nye: -0.670 mV/s Max ST Time in Phase: [...] 1.00 mets 67 bpm 105/71 0.250 mm [id number] 00:30 1.00 mets 90 bpm 102/70 0.400 [...] 4 - Aneurysmal Procedure Staff Reading Group: [facility] Referring Physician: BRITT CALIX ??Stress Asphalt Tamping Machine Operator: Allyson Lake ??Wire Rope Fabrication Supervisor: Lauren Sanchez Ordering Physician: BACILIO CONWAY ??Advanced Practitioner: CRISTINA Gibson ??Nurse: Evelyne Abrams ?? Resting Perfusion Procedure Note Mitul Moya MD - 11/10/2024 1 1 [facility] Heart [facility] [address] [place] [address] [phone] (fax) [facility] Stress Myocardial Perfusion [facility]- [facility] Name: JUAN KONG Study Date: 11/10/2024 11:14 AM B/P: / HR: Date of : 1990 Location: [facility] Height: 65 in. Age: 34 [...] [facility] Exercise Time: 03:02 Device: Treadmill HR [place] Used: 21.00 % HR Recovery: 2 bpm Frequent VE: 1 VE/min Resolution: Persisted Max HR: 98 bpm Target HR: 157 bpm Achieved: No Resting HR: 68 bpm Max Predicted HR: 185 bpm Achv. of Max Predicted: 52 % BP Max: 105/71 BP at Rest: 105/71 Max RPP: 89454 mmHg*bpm Max ST Lead: III Max ST Phase: Infusion Stage No. in Phase: [address] Stage: INFUS2:[address] Amplitude: -0.[address] Nye: -0.670 mV/s Max ST Time in Phase: [...] 1.00 mets 67 bpm 105/71 0.250 mm [id number] 00:30 1.00 mets 90 bpm 102/70 0.400 [...] 4 - Aneurysmal Procedure Staff Reading Group: [facility] Referring Physician: BRITT CALIX Stress Asphalt Tamping Machine Operator: Allyson Lake Wire Rope Fabrication Supervisor: Lauren Sanchez Ordering Physician: BACILIO CONWAY Advanced Practitioner: CRISTINA Gibson Nurse: Evelyne Abrams Resting Perfusion Authorizing ProviderResult TypeResult StatusBacilio Conway [facility] STRESS PROCEDURES Edited Result - Final * Calcium, ionized (11/07/2024 4:50 AM EDT) Only the most recent of5 resultswithin the time period is included. ComponentValueRef RangeTest MethodAnalysis TimePerformed AtPathologist Signature Calcium, Ion1.161.15 - 1.33 mmol/L11/07/2024 5:43 AM [facility] RESPIRATORY THERAPY Specimen (Source)Anatomical Location / LateralityCollection Method / Volume Collection TimeReceived TimeBloodVenous blood specimen / UnknownExisting Catheter / Izplpoi3611/07/2024 4:50 AM EDT11/07/2024 5:38 AM EDT Narrative Authorizing ProviderResult TypeResult StatusEduarda DE LA ROSA BLOOD ORDERABLES Final ResultPerforming OrganizationAddressCity/State/ZIP CodePhone Number [facility] RESPIRATORY THERAPY [address] [place] [address], [place] * [facility] Us Lower Extremity Pseudoaneurysm Duplex Right [...] Signature Hemoglobin9.4(L)12.0 - 15.0 g/dL11/05/2024 9:24 AM [facility] ([facility]) Qzwqsjxncc63.5(L)36.0 - 45.0 %11/05/2024 9:24 AM [facility] ([facility]) Specimen (Source)Anatomical Location / LateralityCollection Method / Volume Collection TimeReceived TimeBloodVenous blood specimen / UnknownExisting Catheter / Jmcfqit3211/05/2024 9:01 AM EDT11/05/2024 9:09 AM EDT Narrative Authorizing ProviderResult TypeResult Fab ROBLERO BLOOD ORDERABLESFinal ResultPerforming OrganizationAddressCity/State/ZIP CodePhone Number [facility] ([facility]) [address] [place] [address] * Transfuse RBC (11/04/2024 4:57 PM EDT) Only the most recent of3 resultswithin the time period is included. Narrative Authorizing ProviderResult TypeResult StatusTomasa SuarezKailyndonmaryart [facility] TRANSFUSION ORDERABLESFinal Result * CTA Abdomen Pelvis [...] Electronically signed: Raegan Quinn. Authorizing ProviderResult TypeResult StatusMikayla Jennings PA-CIMG CT PROCEDURES Final Result * HEPTEM C (11/03/2024 1:58 AM EDT)ComponentValueRef RangeTest MethodAnalysis TimePerformed AtPathologist SignatureHEPTEM C CLOTTING [id number] - 215 s 11/03/2024 1:58 AM [facility] RESPIRATORY THERAPYHEPTEM C AMPLITUDE 5 VKU6941 - 51 mm11/03/2024 1:58 [facility] THERAPYHEPTEM C AMPLITUDE 10 MIN56 44 - 61 mm11/03/2024 1:58 AM [facility] RESPIRATORY THERAPYHEPTEM C AMPLITUDE 20 QKT2269 - 67 mm11/03/2024 1:58 [facility]ER[facility]HEPTEM C MAXIMUM CLOT TFAMPEZO7098 - 69 mm11/03/2024 1:58 AM [facility] RESPIRATORY THERAPY Specimen (Source)Anatomical Location / LateralityCollection Method / Volume Collection TimeReceived DkswXkszr67/19/2025 1:58 AM EDT11/03/2024 1:58 AM EDT Narrative Authorizing ProviderResult TypeResult StatusKy Ritter MDLAB BLOOD ORDERABLESFinal ResultPerforming OrganizationAddressCity/State/ZIP CodePhone Number [facility] RESPIRATORY THERAPY [address] [place] [address], * FIBTEM C (11/03/2024 1:58 AM EDT)ComponentValueRef RangeTest MethodAnalysis TimePerformed AtPathologist SignatureFIBTEM C AMPLITUDE 5 BWO154 - 16 mm 11/03/2024 1:58 AM [facility] RESPIRATORY THERAPYFIBTEM C AMPLITUDE 10 KPN683 - 17 mm11/03/2024 1:58 AM [facility] RESPIRATORY THERAPYFIBTEM C AMPLITUDE 20 MIN14 6 - 18 mm11/03/2024 1:58 AM [facility] RESPIRATORY THERAPYFIBTEM C MAXIMUM CLOT LIXLQATD863 - 19 mm11/03/2024 1:58 AM [facility] RESPIRATORY THERAPYSpecimen (Source)Anatomical Location / LateralityCollection Method / VolumeCollection TimeReceived WhygQcnsr82/19/2025 1:58 AM EDT09/ 1:58 AM EDT Narrative Authorizing ProviderResult TypeResult StatusKy ROBLERO BLOOD ORDERABLESFinal ResultPerforming OrganizationAddressCity/State/ZIP CodePhone Number [facility] RESPIRATORY THERAPY [address] [place] [address], [place] * (ABNORMAL) EXTEM C (11/03/2024 1:58 AM EDT)ComponentValueRef RangeTest Method Analysis TimePerformed AtPathologist SignatureEXTEM C CLOTTING [id number] - 73 s 11/03/2024 1:58 AM [facility] RESPIRATORY THERAPYEXTEM C AMPLITUDE 5 QLH2098 - 52 mm11/03/2024 1:58 AM [facility] RESPIRATORY THERAPYEXTEM C AMPLITUDE 10 AVN9809 - 62 mm11/03/2024 1:58 AM [facility] RESPIRATORY THERAPYEXTEM C AMPLITUDE 20 MIN 6754 - 69 mm11/03/2024 1:58 AM [facility] RESPIRATORY THERAPYEXTEM C MAXIMUM CLOT KTVUORKV1560 - 72 mm11/03/2024 1:58 AM [facility] RESPIRATORY THERAPYEXTEM C LYSIS INDEX 60 NVF7683 - 100 %11/03/2024 1:58 AM [facility] RESPIRATORY THERAPY EXTEM C MAXIMUM LYSIS10(H)0 - 6 %11/03/2024 1:58 AM [facility] RESPIRATORY THERAPYComment:[place]^Preliminary ResultSpecimen (Source)Anatomical Location / LateralityCollection Method / VolumeCollection TimeReceived TimeBlood 11/03/2024 1:58 AM EDT11/03/2024 1:58 AM EDT Narrative Authorizing ProviderResult TypeResult StatusKy ROBLERO BLOOD ORDERABLESFinal ResultPerforming OrganizationAddressCity/State/ZIP CodePhone Number [facility] RESPIRATORY THERAPY [address] [place] [address], [place] * (ABNORMAL) INTEM C (11/03/2024 1:58 AM EDT)ComponentValueRef RangeTest Method Analysis TimePerformed AtPathologist SignatureINTEM C CLOTTING [id number] - 205 s011/03/2024 1:58 AM [facility] RESPIRATORY THERAPYINTEM C AMPLITUDE 5 QPE0774 - 54 mm11/03/2024 1:58 AM [facility] RESPIRATORY THERAPYINTEM C AMPLITUDE 10 MIN 5746 - 63 mm11/03/2024 1:58 AM [facility] RESPIRATORY THERAPYINTEM C AMPLITUDE 20 POJ6835 - 68 mm11/03/2024 1:58 AM [facility] RESPIRATORY THERAPYINTEM C MAXIMUM CLOT RJIXTSWO6869 - 70 mm11/03/2024 1:58 AM [facility] RESPIRATORY THERAPYINTEM C LYSIS INDEX 60 UBJ7242 - 100 %11/03/2024 1:58 AM [facility] RESPIRATORY THERAPY INTEM C MAXIMUM LYSIS12(H)0 - 7 %11/03/2024 1:58 AM [facility] RESPIRATORY THERAPYComment:[place]^Preliminary ResultSpecimen (Source)Anatomical Location / LateralityCollection Method / VolumeCollection TimeReceived TimeBlood 11/03/2024 1:58 AM EDT11/03/2024 1:58 AM EDT Narrative Authorizing ProviderResult TypeResult StatusKy Ritter MDLAB BLOOD ORDERABLESFinal ResultPerforming OrganizationAddressCity/State/ZIP CodePhone Number [facility] [address] [place] [address], * (ABNORMAL) Protime-INR (11/03/2024 12:07 AM EDT) Only the most recent of2 resultswithin the time period is included. ComponentValueRef RangeTest MethodAnalysis TimePerformed AtPathologist Signature Urgewcg78.9(H)12.3 - 14.8 Ncqwyhg2811/03/2024 12:53 AM [facility] ([employer])INR1.17(H)0.90 - 1.10011/03/2024 12:53 AM [facility] ([employer]) Comment: [facility] RECOMMENDED INR FOR WARFARIN THERAPY [...] TimeBloodVenous blood specimen / UnknownExisting Catheter / Uvgghjg8011/03/2024 12:07 AM EDT11/03/2024 12:27 AM EDT Narrative Authorizing ProviderResult TypeResult StatusDavid Ruddy ROBLERO BLOOD ORDERABLES Final ResultPerforming OrganizationAddressCity/State/ZIP CodePhone Number [facility] ([facility]) [address] [place] [address] * Fibrinogen (11/03/2024 12:07 AM EDT)ComponentValueRef RangeTest MethodAnalysis TimePerformed AtPathologist YukklxrmiHwinduzppk400619 - 425 mg/dL11/03/2024 12:53 AM EDTPRES[facility]IAN [facility] ([facility])Specimen (Source)Anatomical Location / LateralityCollection Method / VolumeCollection TimeReceived TimeBloodVenous blood specimen / UnknownExisting Catheter / Vddfnlx7911/03/2024 12:07 AM EDT 11/03/2024 12:27 AM EDT Narrative Authorizing ProviderResult TypeResult StatusDavance ROBLERO BLOOD ORDERABLES Final ResultPerforming OrganizationAddressCity/State/ZIP CodePhone Number [facility] ([place]) [address] [place] [address] * AK AN ELECTIVE ENDOTRACHEAL AIRWAY (11/02/2024 8:56 PM EDT) Tarik Dave CAA - 11/02/2024 8:56 PM EDT [place] Nair 11/02/2024 9:06 PM Airway Date/Time: 11/02/2024 8:56 PM Reason: elective Airway not difficult General Information and Staff Patient location during procedure: [place] Anesthesiologist: David Reyes MD Resident/MBA INTERN/CAA: [place] Nair Performed: resident/MBA INTERN/[place] Patient Condition Indications for airway management: anesthesia [...] other approaches attempted: 0 Authorizing ProviderResult TypeResult StatusThtomasa Reyes MDANESTHESIA ORDERABLESFinal Result * Prepare RBC: 1 Units (11/02/2024 8:05 PM EDT) Only the most recent of2 resultswithin the time period is included. ComponentValueRef RangeTest MethodAnalysis TimePerformed AtPathologist Signature PRODUCT [id number] BLOOD BANKUnit [id number] BLOOD BANKUnit ABOOUT BLOOD BANKUnit RhPOSLEA REGIONAL [facility] BLOOD BANKCrossmatch InterpretationCOMGUADALUPE COUNTY HOSPITAL BLOOD BANKDispense StatusTRLEA [facility] BLOOD BANKBlood Expiration [id number] BLOOD BANKProduct Blood Gdim2306JLFD BLOOD BANKUnit Wolise777CBASUB BLOOD BANK Specimen (Source)Anatomical Location / LateralityCollection Method / Volume Collection TimeReceived MehrLpwpw76/18/2025 8:05 PM EDT Narrative Authorizing ProviderResult TypeResult StatusTomasa Disla UTBLOOD BANK PRODUCT ORDERABLESFinal ResultPerforming OrganizationAddressCity/State/ZIP Code Phone Number [facility] * Type and screen (11/02/2024 8:02 PM EDT)ComponentValueRef RangeTest Method Analysis TimePerformed AtPathologist SignatureABO RpysmaqiZ47/18/2025 8:42 PM EDGUADALUPE COUNTY HOSPITAL BLOOD BANKRh GndpFXC2911/02/2024 8:42 PM EDGUADALUPE COUNTY HOSPITAL BLOOD BANKAb ScrnNEG 11/02/2024 8:42 PM EDGUADALUPE COUNTY HOSPITAL BLOOD BANKSpecimen (Source)Anatomical Location / LateralityCollection Method / VolumeCollection TimeReceived TimeBloodVenous blood specimen / UnknownExisting Catheter / Jojkoii9111/02/2024 8:02 PM EDT 11/02/2024 8:02 PM EDT Narrative Authorizing ProviderResult TypeResult StatusChrainer Collins [facility] BLOOD BANK TEST ORDERABLESFinal ResultPerforming OrganizationAddressCity/State/ZIP Code Phone Number [facility] * Red Top (11/02/2024 8:00 PM EDT)ComponentValueRef RangeTest MethodAnalysis TimePerformed AtPathologist SignatureExtra TubeHold for add-ons.11/02/2024 10:02 PM EDGUADALUPE COUNTY HOSPITAL [facility] (CORKYDrizly)Comment:Auto resulted.Specimen (Source) Anatomical Location / LateralityCollection Method / VolumeCollection Time Received TimeBloodVenous blood specimen / Xodwmcb4311/02/2024 8:00 PM EDT 11/02/2024 8:19 PM EDT Narrative Authorizing ProviderResult TypeResult StatusKy Ritter [facility] BLOOD ORDERABLESFinal ResultPerforming OrganizationAddressCity/State/ZIP CodePhone Number [facility] ([facility]) [address] [place] [address] * (ABNORMAL) Activated clotting time (11/02/2024 4:43 PM EDT) Only the most recent of7 resultswithin the time period is included. ComponentValueRef RangeTest MethodAnalysis TimePerformed AtPathologist Signature Activated Clotting Pisy802(H)82 - 152 s011/02/2024 5:54 PM EDTPRES[facility]TERIAN H[facility] ([facility])Specimen (Source)Anatomical Location / LateralityCollection Method / VolumeCollection TimeReceived TimeBloodVenous blood specimen / Vvnszko9111/02/2024 4:43 PM EDT11/02/2024 5:54 PM EDT Narrative Authorizing ProviderResult TypeResult StatusKy Ritter MDLAB POINT OF CARE TEST DOCKED DEVICE UNSOLICITED RESULTSFinal ResultPerforming OrganizationAddress City/State/ZIP CodePhone Number [facility] ([facility]) [address] [place] [address] * (ABNORMAL) POCT activated clotting time manually resulted (11/02/2024 4:40 PM EDT) Only the most recent of2 resultswithin the time period is included. ComponentValueRef RangeTest MethodAnalysis TimePerformed AtPathologist Signature Activated Clotting Time HQN630(A)82 - 152 secSpecimen (Source)Anatomical Location / LateralityCollection Method / VolumeCollection TimeReceived TimeBlood Venous blood specimen / Cgcdebl6811/02/2024 4:40 PM EDT Narrative Authorizing ProviderResult TypeResult StatusKy Ritter MDPOINT OF CARE TEST ENTER/EDIT ORDERABLESFinal Result [...] infiltrated over the right femoral artery. ??A 6-Singaporean sheath was placed in right femoral artery. ?? Coronary angiography was performed with a JL4 and then repeated after IC nitroglycerin 50 mcg x 2. At this time, it was apparent that the LAD had a moderate stenosis and IVUS and iFR were performed. ??Heparin anticoagulation was used for this procedure. ACT was maintained at >250 seconds. A 6 Singaporean xb3 was engaged to the [place]. I [...] artery [I25.42] Unstable angina Authorizing ProviderResult TypeResult StatusNorth [place]b Mary Jane Ritter [facility] CARDIAC CATH PROCEDURESFinal Result * Light Green Top (11/02/2024 6:15 AM EDT)ComponentValueRef RangeTest Method Analysis TimePerformed AtPathologist SignatureExtra TubeHold for add-ons. 11/02/2024 8:01 AM [facility] ([facility])Comment:Auto resulted.Specimen (Source)Anatomical Location / LateralityCollection Method / VolumeCollection TimeReceived TimeBloodVenous blood specimen / UnknownExisting Catheter / Ovzbyze5811/02/2024 6:15 AM EDT11/02/2024 6:38 AM EDT Narrative Authorizing ProviderResult TypeResult StatusKy ROBLERO BLOOD ORDERABLESFinal ResultPerforming OrganizationAddressCi/State/ZIP CodePhone Number [facility] ([facility]) [address] [place] [address] * (ABNORMAL) POCT activated clotting time docked device (11/01/2024 4:33 PM EDT) ComponentValueRef RangeTest MethodAnalysis TimePerformed AtPathologist SignatureActivated Clotting Time WJQ341(A)82 - 152 secPRESBYTERIAN HOS[facility]ITAL [facility] ([facility])Specimen (Source)Anatomical Location / LateralityCollection Method / VolumeCollection TimeReceived KjckNopia30/17/2025 4:33 PM EDT Narrative Authorizing ProviderResult TypeResult Lena ROBLERO POINT OF CARE TEST DOCKED DEVICE ORDERABLESFinal ResultPerforming OrganizationAddress City/State/ZIP CodePhone Number [facility]) [address] [place] [address] * CORONARY ANGIOGRAPHY, ULTRASOUND - CORONARY (11/01/2024 [...] on TPN presents a direct admission from [facility] with chief complaint of chest pain. [...] infiltrated over the right femoral artery. ??A 5-Singaporean Terumo sheath was placed in right femoral [...] was maintained at >250 seconds. A 5 Singaporean Cordis XB 3.0 guide was engaged to the left main. I decided to proceed with IVUS. ??I then advanced a Runthrough wire to the distal left anterior descending. Next, I advanced a [employer] IVUS catheter. ??IVUS imaging was performed and [...] Study Details NSTEMI Authorizing ProviderResult TypeResult Lena Ritter [facility] CARDIAC CATH PROCEDURESFinal Result * (ABNORMAL) Anti-Xa (Heparin Level) (11/01/2024 6:04 AM EDT) Only the most recent of4 resultswithin the time period is included. ComponentValueRef RangeTest MethodAnalysis TimePerformed AtPathologist Signature Anti-Xa (Heparin)0.27(L)0.3 - 0.7 IU/mL11/01/2024 6:37 AM [facility] (Drizly)Comment:Rivaroxaban and Apixaban will interfere with the anti Xa assay used to monitor UFH and LMWH.Specimen (Source)Anatomical Location / Laterality Collection Method / VolumeCollection TimeReceived TimeBloodBlood sample taken from central line / UnknownExisting Catheter / Afukswj7211/01/2024 6:04 AM EDT 11/01/2024 6:15 AM EDT Narrative Authorizing ProviderResult TypeResult Lena Ritter [facility] BLOOD ORDERABLESFinal ResultPerforming OrganizationAddressCity/State/ZIP CodePhone Number [facility] ([facility]) [address] [place] [address] * (ABNORMAL) Toxicology Screen, Urine (11/01/2024 2:12 AM EDT)ComponentValueRef RangeTest MethodAnalysis TimePerformed AtPathologist SignatureBarbiturates CtgpvbbhPxzovuob19/17/2025 2:57 AM [facility] ([employer]) BenzodiazepinesPositive(A)Biduetzx77/17/2025 2:57 AM [facility] ([employer])UagnukmiyeaeMqqdhunpMrhhjtem43/17/2025 2:57 AM [facility] ([facility])KjchzagqvTtdfcryhMgfvrcyl41/17/2025 2:57 AM [facility] ([facility])UjesrddcloXqdwgrltPlietdyg47/17/2025 2:57 AM [facility] ([facility])PawrxsxibkdvlPqxjogbrIfmgyzxs18/17/2025 2:57 AM [facility] ([facility])OpiatesPositive(A)Eqkvisof74/17/2025 2:57 AM [facility] ([facility])CjoxljqOmagunraNftaglrn69/17/2025 2:57 AM [facility] ([facility])Amphetamines/QplzhinpzmgufdjGsolcfktApvdapyv65/17/2025 2:57 AM [facility] ([facility])YonoyoyixhtYnqiqmgqWrrplptz80/17/2025 2:57 AM [facility] ([facility])Specimen (Source)Anatomical Location / Laterality Collection Method / VolumeCollection TimeReceived TimeUrineUrine specimen obtained by clean catch procedure / UnknownNon-blood Collection / Unknown 11/01/2024 2:12 AM EDT11/01/2024 2:18 AM EDT Narrative [facility] ([facility]) - 11/01/2024 2:57 AM EDT Unconfirmed screening results should only be used for medical purposes. Authorizing ProviderResult TypeResult StatusCaleb Mary Jane ROBLERO URINE ORDERABLESFinal ResultPerforming OrganizationAddressCity/State/ZIP CodePhone Number [facility] ([facility]) [address] [place] [address] * CORONARY ANGIOGRAPHY, LEFT HEART CATH (10/31/2024 [...] informed consent. ??she was brought to the labview programmer in a fasting state. The left wrist area was prepped and draped in usual fashion. Micropuncture technique was used for access in the radial artery. ??A 5-Singaporean x 11 cm sheath was placed. ??Verapamil was given through the sheath, and heparin was administered intravenously. ?? A 5 Singaporean JR4 diagnostic catheter was advanced and this [...] catheter was then downsized to a 4 Singaporean JR4 diagnostic catheter however this also was not able to engage the right coronary artery. ??Catheter was exchanged to a ??JR4 diagnostic catheter which could not engage the left coronary artery. ??Catheter was exchanged to a 4 Singaporean JL 3.5 diagnostic catheter which eventually was able to engage the left coronary artery. ??Angiography was performed in multiple views. Catheter was exchanged over the wire to a 4 Singaporean 3DRC catheter. ?? Multiple attempts were made [...] Study Details NSTEMI (non-ST elevated myocardial infarction) ([facility]) [I21.4] Authorizing ProviderResult TypeResult Status[facility] CARDIAC CATH PROCEDURESFinal Result * LIMITED ECHO (TTE) W/ COLOR FLOW AND IMAGING AGENT (10/31/2024 11:40 AM EDT) Anatomical RegionLateralityModalityOtherSpecimen (Source)Anatomical Location / LateralityCollection Method / VolumeCollection TimeReceived Time10/31/2024 11:16 AM EDT Narrative 10/31/2024 12:44 PM EDT 1 1 [facility] [address] [place] [address] [phone] (fax) Echocardiogram-[facility] Name: JUAN [...] minimal pericardial effusion. Procedure Staff Reading Group: [facility] Lumber Sticker: DAVID Kearney, RDCS ??Ordering Physician: [place] RITTER ?? Wall Motion Scores -1 - hyperkinesia, 0 - not evaluated, 1 - normal, 2 - hypokinesia, 3 - akinesia, 4 - dyskinesia Procedure Note Mitul Moya MD - 10/31/2024 1 1 [facility] [address] [place] [phone] (fax) Echocardiogram-[facility] Name: JUAN [...] minimal pericardial effusion. Procedure Staff Reading Group: [facility] Lumber Sticker: DAVID Kearney, RDCS Ordering Physician: [place] RITTER Wall Motion Scores -1 - hyperkinesia, 0 - not evaluated, 1 - normal, 2 - hypokinesia, 3 - akinesia, 4 - dyskinesia Authorizing ProviderResult TypeResult Lena Ritter [facility] ECHO PROCEDURES Final Result * Hemoglobin A1c (10/31/2024 6:27 AM EDT)ComponentValueRef RangeTest Method Analysis TimePerformed AtPathologist SignatureHemoglobin A1C4.54.0 - 6.0 % 10/31/2024 1:13 PM [facility] ([facility])Estimated Average Plhbcef82 mg/dL10/31/2024 1:13 PM [facility] ([facility])Specimen (Source) Anatomical Location / LateralityCollection Method / VolumeCollection Time Received TimeBloodBlood sample taken from central line / UnknownExisting Catheter / Izgrkei5110/31/2024 6:27 AM EDT10/31/2024 7:01 AM EDT Narrative Authorizing ProviderResult TypeResult Lena ROBLERO BLOOD ORDERABLESFinal ResultPerforming OrganizationAddressCity/State/ZIP CodePhone Number [facility] ([facility]) [address] [place] [address] * (ABNORMAL) Lipid panel (10/31/2024 6:27 AM EDT)ComponentValueRef RangeTest MethodAnalysis TimePerformed AtPathologist MatovmgyoUrzfgxtjdspjm39<150 mg/dL 10/31/2024 9:31 AM [facility] ([facility])Comment: TRIGLYCERIDE REFERENCE RANGE: 20 YEARS AND OLDER ?CARDIOVASCULAR RISK LESS THAN 150 mg/dL ? LOW RISK 150 TO 199 mg/dL ?BORDERLINE RISK 200 mg/dL AND GREATER ? HIGH RISK Ubtnojulwqh513(L)120 - 200 mg/dL10/31/2024 9:31 AM [facility] ([facility]) LDL Rsslanlugk919 - 160 mg/dL10/31/2024 9:31 AM [facility] ([facility])HDL 4323 - 92 mg/dL10/31/2024 9:31 AM [facility] ([facility])Non HDL Orfzbemnwti0340/16/2025 9:31 AM [facility] ([facility])Total VLDL-C170 - 40 mg/dL10/31/2024 9:31 AM [facility] ([facility])Cholesterol/HDL Ratio2.7 mg/dL10/31/2024 9:31 AM [facility] ([facility])Specimen (Source)Anatomical Location / LateralityCollection Method / VolumeCollection TimeReceived Time BloodBlood sample taken from central line / UnknownExisting Catheter / Unknown 10/31/2024 6:27 AM EDT10/31/2024 7:11 AM EDT Narrative Authorizing ProviderResult TypeResult StatusKy Ritter MDLAB BLOOD ORDERABLESFinal ResultPerforming OrganizationAddressCity/State/ZIP CodePhone Number [facility]) [address] [place] [address] * TSH3 Reflex to FT4 (10/30/2024 7:11 PM EDT)ComponentValueRef RangeTest Method Analysis TimePerformed AtPathologist SignatureTSH3.460.34 - 5.60 mIU/L 10/30/2024 8:01 PM [facility] ([facility])Specimen (Source)Anatomical Location / LateralityCollection Method / VolumeCollection TimeReceived Time BloodVenous blood specimen / UnknownExisting Catheter / Gpmszyx9710/30/2024 7:11 PM EDT10/30/2024 7:18 PM EDT Narrative Authorizing ProviderResult TypeResult StatusDebbie Luna CNPLAB BLOOD ORDERABLES Final ResultPerforming OrganizationAddressCity/State/ZIP CodePhone Number [facility]) [address] [place] [address] * (ABNORMAL) aPTT - baseline (10/30/2024 7:11 PM EDT)ComponentValueRef RangeTest MethodAnalysis TimePerformed AtPathologist TiuigbwpojYJC09.0(H)25.0 - 35.0 Nwiqujq3510/30/2024 7:48 PM [facility] ([facility])Comment:Clinical significance of the APTT is questionable in the presence of heparin.Specimen (Source)Anatomical Location / LateralityCollection Method / VolumeCollection TimeReceived TimeBloodVenous blood specimen / UnknownExisting Catheter / Cxikxkl8810/30/2024 7:11 PM EDT10/30/2024 7:18 PM EDT Narrative Authorizing ProviderResult TypeResult StatusMeNoland Hospital TuscaloosaLAB BLOOD ORDERABLES Final ResultPerforming OrganizationAddressCity/State/ZIP CodePhone Number [facility] ([facility]) [address] [place] [address] * B-type natriuretic peptide (10/30/2024 7:11 PM EDT)ComponentValueRef RangeTest MethodAnalysis TimePerformed AtPathologist VqwxgcgtoSGR455 - 100 pg/mL 10/30/2024 7:49 PM [facility] ([facility])Specimen (Source)Anatomical Location / LateralityCollection Method / VolumeCollection TimeReceived Time BloodVenous blood specimen / UnknownExisting Catheter / Jdnfojh3210/30/2024 7:11 PM EDT10/30/2024 7:18 PM EDT Narrative Authorizing ProviderResult TypeResult StatusSouth [facility]rienLAB BLOOD ORDERABLES Final ResultPerforming OrganizationAddressCity/State/ZIP CodePhone Number [facility] ([facility]) [address] [place] [address] from Last 3 Months Insurance * Guarantor: Juan Kong TypeRelation to PatientDate of BirthPhone Billing AddressPersonal/DsxqlfPndv83/17[birth year][id number] [address] Advance Directives * Full Code (Latest Code Status on File) Date ActivatedDate NiqrusjktjdUdmesmkm30/2/2025 12:23 PM12/21/2024 4:03 PM * Full Code Date ActivatedDate WmzxffxxnnxOrwxalzm97/1/2025 8:05 11/17/2024 4:42 PM * Full Code Date ActivatedDate InactivatedComments11/09/2024 12:31 PM11/13/2024 4:34 PM * Full Code Date ActivatedDate InactivatedComments10/30/2024 7:14 PM11/07/2024 7:10 PM * Full Code Date ActivatedDate InactivatedComments08/16/2024 9:21 PM08/20/2024 5:55 PM Care Teams Team MemberRelationshipSpecialtyStart DateEnd Date Britt Calix MD [facility] #[place] [address] PCP - GeneralFamily Medicine08/17/24 Vicky Cardenas RN Case ManagerCase Hgycgknpox36/13/25
--- OUTSIDE RECORDS SUMMARY | 2025-01-27 10:10 | XMS_ITS | Clinical Summary ---
Author Organization [facility] Healthcare Address [address] [place] [address] Care Team Providers Care Word Processing Machine Operator Name Role Phone Anna Mendez SUPERCALENDER OPERATOR HELPER Unavailable Thomas Alas MD Primary Care Provider [phone] Allergies Active AllergyReactionsCriticalityNoted DggcNbucqfmaQssqwok64/21/2023Morphine And CodeineNausea And Vomiting,Other,BkubkuwMukraq69/23/2014 Other Reaction(s): GI Upset, Nausea/vomiting, Not available, Other (See Comments), unknown NsaidsGI koslacdgzfqMth50/15/2022 S/p RYGB Other Reaction(s): Nausea/vomiting Other Reaction(s): Other (See Comments), Unknown Gastric bypass S/p RYGB S/p RYGB Oxycodone-ZqirqfpylfyerVadthgkbercZlyr91/30/3463Eekkcift42/14/2024Wound Dressing LencuskvTdjkxOqfrtt52/23/2020 Sensitive to certain adhesive tapes. Redness and [...] the morning and 1 puff before bedtime.08/20/2021ctive [place] WestTouch Ultra test strip USE TO TEST BLOOD SUGAR TWICE DAILY08/17/2021ctive hydrOXYzine HCl (Atarax) 25 MG tablet TAKE 1 TABLET BY MOUTH TWICE A DAY NEEDED FOR ANXIETY/OMASWTYD13/24/2023 Active Lancets (OneTouch Delica Plus Evbyvi78S) misc USE TO TEST BLOOD SUGAR TWICE DAILY08/17/2021ctive liothyronine (Cytomel) 5 MCG tablet liothyronine 5 mcg ddaomc2105/21/2022ctive mirtazapine (Remeron) 15 MG tablet Take 15 [...] PCP Patellofemoral /20/2023Other specified noninflammatory disorders of jkjvev9008/04/2022Mixed incontinence urge and knwxoz1208/04/2022Mixed anxiety and depressive elavspme67/20/2023Internal derangement of right guhrpvtj19/20/2023 GERD (gastroesophageal reflux disease)08/04/2022 Overview (08/04/2022): Last Assessment & Plan: Assessment: takes meds,stable Gall stone08/04/20221884Euffxpoc66/20/9913Lnzzzlmbg64/20/2023hronic constipation 08/04/20223790Tplrnz05/20/2023 Overview (08/04/2022): Takes Pro FE daily. Last Assessment & Plan: Assessment: iron infusions ~1 month ago Acute pain of right knee08/04/2022Vaginal pain08/04/2022Right flank pain 08/04/2022Rash and nonspecific skin bioluihn65/07/2023History of sleep apnea 06/24/2022History of Isabel-en-Y gastric xzpqjm7206/24/2022ipolar disorder 06/21/2022astric nqoykq5701/29/2022ONV (postoperative nausea and vomiting) 01/29/2022Ventral hernia without obstruction or pbmgzuzg94/27/2022 Overview (08/04/2022): Last Assessment & Plan: Assessment: will have surgery Calculus of mloqsi3303/10/2021History of sleeve bpfebkoylnx53/22/2021 Overview (08/04/2022): Last Assessment & Plan: Assessment: 08/2020, down 50 lbs Chdssu3808/21/2020 Overview (08/04/2022): Last Assessment & Plan: Assessment: Advair BID and Albuterol daily Unilateral primary osteoarthritis, right knee04/26/2020bnormal finding on imaging of liver04/07/2020evere protein-calorie malnutrition (HHS-HCC) 1Right upper quadrant abdominal pain01/31/2020Situational stress 01/03/2020Panic disorder without dducrghrsgc92/06/2020Back pain10/15/2019Malaise and zuvgekg4810/06/2019Chronic bilateral low back pain without ozpigeax78/21/2020 Jvupqmd5410/06/20195187Zotfbds66/10/2020 Overview (08/04/2022): Last Assessment & Plan: Assessment: BMI 31.8 Benign essential HTN09/25/2019 Overview (08/04/2022): Last Assessment & Plan: Assessment: not on meds,monitored per PCP BP 141/70 pulse 62 Regurgitation of food09/25/2019Preoperative yoyuxanxjip93/10/2020Nausea 09/25/2019Obstructive sleep apnea bqhadlaj48/23/2019 Overview (08/04/2022): wears mask every night Last Assessment & Plan: Assessment: uses CPAP nightly Laryngopharyngeal ouuqjl7910/07/2018Adrenal kwxlvuvulmgl99/20/2019Insulin ogoczodeso02/19/2019Reactive ahmipmcsktit23/19/2019Iron clguiozygl62/05/2019 Chronic fatigue vmnlovtu48/05/2019Vitamin D tpgkzcvisg40/05/2019Insomnia 09/15/2018Maltracking of right mvcjyim4206/27/2018Internal derangement of right knee06/15/2018Osteoarthritis of patellofemoral joint05/30/2018Chondromalacia of patella, right05/30/2018Arthritis of right knee05/30/2018Hypothyroidism affecting in second ncqqbpmeq66/08/2018Hypertensive nbkhprip08/30/2018 39 weeks gestation of ([facility])11/23/2016Polycystic rtxfqvv8910/02/2013 Asthma without status ysokhljgkin31/18/2014Gastric ulcer02/15/2013 Overview (08/04/2022): Last Assessment & Plan: [...] Date RecordedSex Assigned at BirthNot on fileLegal VcsAtsjnk71/01/2023 8:33 PM EDTGender IdentityNot on fileSexual OrientationNot on file Last Filed Vital Signs Vital SignReadingTime TakenCommentsBlood Jpuvbpdb903/8009 8:40 AM EDT Pulse--Temperature--Respiratory Rate--Oxygen Saturation--Inhaled Oxygen Concentration--Pdngco86.9 kg (185 lb)12/14/2023 2:11 PM UHLEbhzwe805.6 cm (5' 6 )12/14/2023 2:11 PM EDTBody Mass Index29.8612/14/2023 2:11 PM EDT Plan of Treatment Not on file Insurance Care Teams Team MemberRelationshipSpecialtyStart DateEnd Date Thomas Alas MD [address] [place] [address] PCP - GeneralFamily Ficsfgqx38/29/24 Anna Mendez NP [address] [place] [address] Referring Physicianmily Medicine07/23/22
--- OUTSIDE RECORDS SUMMARY | 2025-01-27 10:10 | XMS_ITS | Clinical Summary ---
Author Organization [facility] Address [address] [place] [address] Care Team Providers Care Management Instructor Name Role Phone Thomas Alas MD Primary Care Provider [phone] Allergies Active AllergyReactionsCriticalityNoted DateCommentsCodeine And Related 11/12/20170444Iqbrhw06/13/2024 Medications MedicationSigDispense QuantityRefillsLast FilledStart DateEnd DateStatus metformin [...] bedtime.12/27/2023ctive Active Problems ProblemNoted DateDiagnosed DateImpaired intestinal srjuvnrjgi41/18/2024 Jejunostomy tube kubcmjy0006/07/2023Median arcuate ligament xjjslymr98/14/2023 Dysfunction of sphincter of Oddi11/06/2022cquired ynvwqateindshb42/10/2023 Intractable vomiting with rlezcr1510/25/2022hronic qqoanqodmune92/20/2023Mixed anxiety depressive jaaopkjz52/20/2023ipolar hzrujcud44/07/2023Obesity: body mass index of 35.0-39.91evere protein-calorie jxxgjbllsvoa14/20/2021 Trauma and stressor-related bxxxvakj46/06/2020Benign essential HTN09/25/2019 Overview (01/25/2024): Last Assessment & Plan: Assessment: not on meds,monitored per PCP BP 141/70 pulse 62 Obstructive sleep apnea gymqlnwf79/23/2019 Overview (01/25/2024): wears mask every night Chronic fatigue wsrztoxb15/05/2019 Social History Tobacco UseTypesPacks/DayYears UsedDateSmoking Tobacco: NeverSmokeless Tobacco: NeverAlcohol UseStandard Drinks/WeekCommentsNo0 (1 standard drink = 0.6 oz pure alcohol)CommentsNoSex and Gender InformationValueDate RecordedSex Assigned at BirthNot on fileLegal SwhXywjyt65/28/2018 1:19 PM EDTGender Identity Zbdxqq5011/12/2017 1:20 PM EDTSexual KviljbuafuoNrjbqevf07/14/2024 7:37 AM EST Last Filed Vital Signs Vital SignReadingTime TakenCommentsBlood Btwfgdry889/8209 1:52 PM EDT Edsgs162511/02/2022 1:52 PM HDTRqvjztpvojl85.8 ??C (98.3 ??F)11/02/2022 10:34 AM EDTRespiratory Dthv775111/02/2022 1:52 PM EDTOxygen Twbcpnzxub72%11/02/2022 10:34 AM EDTInhaled Oxygen Concentration--Cscpox10.3 kg (188 lb)12/29/2023 10:23 AM SSVVrwgld507.6 cm (5' 6 )12/29/2023 10:23 AM ESTBody Mass Index30.34102/27/2023 10:23 AM EST Plan of Treatment Health MaintenanceDue DateLast DoneCommentsHEPATITIS C VIRUS OMUHDWVQF21/17/1990 TSH1989HIV SCREENING GARJCHKWTA79/17/2005HEP B VACCINE (1 of 3 - 19+ 3- dose series)2008CERVICAL CANCER SCREENING FHNHJEGHYB67/17/2011HPV VACCINE (1 - 3-dose SCDM series)2016COVID-19 VACCINE ( season) 501/05/2021, 06/23/2020INFLUENZA VACCINE (#1)509/, 11/16/2021, 01/01/2021, Additional history fwhlqtEJPFJPG75/07/202708/08/2016TDAP (ADULT)Pkzjtflmg78/07/2017PNEUMOCOCCAL VACCINE SERIESAged OutNo longer eligible based on patient's age to complete this topic Insurance * Guarantor: Corby Kong TypeRelation to PatientDate of BirthPhoneBilwar memorial hospital AddressPersonal/XgdrktCchn29/17[birth year][id number] [place] [address] * Guarantor: Corby Kong TypeRelation to PatientDate of BirthPhoneBilwar memorial hospital AddressPersonal/CuosjzQfit78/17/[address] [address] Care Teams Team MemberRelationshipSpecialtyStart DateEnd Thomas Alas MD PCP - Hdpchvg69/14/24
--- OUTSIDE RECORDS SUMMARY | 2025-01-27 10:10 | XMS_ITS | Clinical Summary ---
Author Organization [facility] Address [address] 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 30 MG FQGCKPVRV37/26/2023 Active polyethylene glycol (Glycolax, Miralax) 17 gram/dose [...] pain06/30/2023cute renal failure superimposed on chronic kidney bgjiluu8406/29/20238237Kvopttpmyxg62/14/2024Heart zoaauyh1006/29/2023bdominal pain03/16/2023Nausea and amopibku93/19/2024OSA (obstructive sleep apnea)03/05/20232068Xckvni43/19/0305Gsymqvg11/19/2024 Ffgggscjihrojv73/19/7561Tpcmeiftzk76/19/2024Median arcuate ligament syndrome 02/18/2023 Family History Medical [...] RecordedIn the past 12 months has the [employer], gas, oil, or water [employer] threatened to shut off services in your [...] relatives?Twice a week06/30/2023How often do you attend adventist or adventism services?More than 4 times per year06/30/2023o you belong to any clubs or organizations such as adventist groups, unions, fraternal [...] heating?Not hard at all06/30/2023HQ-2AnswerDate RecordedPatient Health Questionnaire-2 Xmvlc244Finsevier valley hospital [facility] of Occupational Health - Occupational Stress QuestionnaireAnswerDate [...] steady place to sleep or slept in zarephathelter (including now)?No 06/30/2023UDIT-CAnswerDate RecordedQ1: How often do you have a drink containing alcohol?Never10/09/2024Q2: How many drinks containing alcohol do you have on a typical day when you are drinking?Patient does not drink10/09/2024Q3: How often do you have six or more drinks on one occasion?Never10/09/2024Comments UnknownSex and Gender InformationValueDate RecordedSex Assigned at BirthFemale 02/23/2023 4:19 AM ESTLegal NxhXdvwdk49/26/2022 6:26 PM ESTGender IdentityFemale 03/02/2023 2:54 PM ESTSexual JiwqbxrehgwUtvywthk05/16/2024 2:54 PM EST Last Filed Vital Signs Vital SignReadingTime TakenCommentsBlood Howyopuj89/57007/03/2023 7:00 AM EDT Xtjjn62950/18/2024 7:00 AM DCQYrimcrykylt57 ??C (98.6 ??F)07/03/2023 7:00 AM EDT Respiratory Xxqf527507/03/2023 7:00 AM EDTOxygen Haqdhgslca409%07/03/2023 7:00 AM EDTInhaled Oxygen Concentration--Xdsjys71.2 kg (168 lb)06/29/2023 6:16 PM EDT Jyueso243.6 cm (5' 6 )06/29/2023 6:16 PM EDTBody Mass Index27.12006/29/2023 6:16 PM EDT Plan of Treatment Health MaintenanceDue DateLast ByldGmpflxuoSdenctsreolasf70/17/1990HIV Screening 1989Lipid Panel1989Yearly Adult Yjrjecor88/17/1990MMR Vaccines (1 of 1 - Standard series)1990Hepatitis C Yyffgfbhj16/17/2008Hepatitis A Vaccines (1 of 2 - Risk 2-dose series)2008Hepatitis B Vaccines (1 of 3 - 19+ 3-dose series)2008Pneumococcal Vaccine: Pediatrics and At-Risk Adult Patients (1 of 2 - PCV)2008Zoster Vaccines (1 of 2)2008HPV/Cotest 2010HPV Vaccines (1 - Risk 3-dose Standard series)2016COVID-19 Vaccine (2 - Woo risk series)07/21/256921/1Cervical Cancer Screening 4Pap Smear04//670030/07/2020TSH Level09//866193/3Creatinine Level/, 07/01/2023, 06/30/2023, Additional history exists Potassium Level07/01//, 07/01/2023, 06/30/2023, Additional history existsInfluenza Vaccine (#1)509/, 11/16/2021, 01/01/2021, Additional history existsDiabetes Dqhylxlcl84/06/026026/07/2024, 08/19/2024, 08/18/2024, Additional history existsDTaP/Tdap/Td Vaccines (2 [...] Kylie Rome, 5 X 6 In - [id number] Implanted:Qty: 1 on 03/05/2023 [facility]ImplantN/A: AbdomenBACENTRAL HARNETT [id number] / / [id number] Procedures Procedure NamePriorityDate/TimeAssociated DiagnosisCommentsPOCT GLUCOSERoutine 07/03/2023 7:17 AM EDT RENAL FUNCTION ONPXLFrvegka26/17/2024 6:47 AM EDT from Last 3 Months or Most Recently Relevant to Health Maintenance Results * (ABNORMAL) POCT GLUCOSE (07/03/2023 7:17 AM EDT)ComponentValueRef RangeTest MethodAnalysis TimePerformed AtPathologist SignaturePOCT Jzhgoch504(H)74 - 99 mg/dL07/03/2023 7:24 AM [facility] LABSpecimen (Source) Anatomical Location / LateralityCollection Method / VolumeCollection Time Received TimeBloodCapillary blood specimen / Fqyhtxr0607/03/2023 7:17 AM EDT 07/03/2023 7:24 AM EDT Narrative Authorizing ProviderResult TypeResult StatusCyntsandee ROBLERO POINT OF CARE TEST DOCKED DEVICE UNSOLICITED RESULTSFinal ResultPerforming OrganizationAddress City/State/ZIP CodePhone Number [facility] [address] [place] [address] * (ABNORMAL) Renal Function Panel (07/02/2023 6:47 AM EDT)ComponentValueRef RangeTest MethodAnalysis TimePerformed AtPathologist LpbprveswFsmobfr509(H)65 - 99 mg/dL07/02/2023 7:53 AM [facility] ZQFZqvbjm848380 - 145 mmol/L07/02/2023 7:53 AM [facility] LABPotassium3.93.4 - 5.1 mmol/L07/02/2023 7:53 AM [facility] MKGYydiwjad23601 - 107 mmol/L07/02/2023 7:53 AM [facility] SSPHkroxzkrjzw45(L)24 - 31 mmol/L07/02/2023 7:53 AM [facility] LABUrea Kjkxxnqp284 - 25 mg/dL07/02/2023 7:53 AM [facility] LABCreatinine0.700.40 - 1.60 mg/dL07/02/2023 7:53 AM [facility] LABeGFR>90>60 mL/min/1.73m*2 07/02/2023 7:53 AM [facility] LABComment: Calculations of estimated GFR are performed using the 2020 CKD-EPI Study Refit equation without therace variable for the IDMS-Traceable creatinine methods. https://jasn.asnjournals.org/content///ASN.8625011568 Calcium8.68.5 - 10.4 mg/dL07/02/2023 7:53 AM [facility] Phosphorus4.02.5 - 4.5 mg/dL07/02/2023 7:53 AM [facility] Albumin4.03.5 - 5.0 g/dL07/02/2023 7:53 AM [facility] LABAnion Gap 11<=19 mmol/L07/02/2023 7:53 AM [facility] LABSpecimen (Source) Anatomical Location / LateralityCollection Method / VolumeCollection Time Received TimeBloodVenous blood specimen / Ypqjsal3307/02/2023 6:47 AM EDT 07/02/2023 6:58 AM EDT Narrative Authorizing ProviderResult TypeResult StatusOludatelma ROBLERO BLOOD ORDERABLESFinal ResultPerforming OrganizationAddressCity/State/ZIP CodePhone Number [facility] [address] [place] [address] from Last 3 Months or Most Recently Relevant to Health Maintenance Insurance Advance Directives For more information, please contact: [phone] (Available ) * Full Code (Latest Code Status on File) Date ActivatedDate InactivatedComments03/05/2023 2:37 PMQuestionAnswerComments Plan of Care:* Code Status Discussion Completed Decision Maker:* Patient Care Teams Team MemberRelationshipSpecialtyStart DateEnd Date Generic Provider, No Assigned Pcp, [place] [phone] PCP - GeneralGeneral Practice06/29/23
[2025-01-27 10:18] LABS: Anion Gap 10.4; Blood Urea Nitrogen 5.0 mg/dL (7.0-18.0); Calcium 8.1 mg/dL (8.5-10.1); Carbon Dioxide 29.1 mmol/L (21.0-32.0); Chloride 104 mmol/L (98-107); Estimated GFR (African America >60 (>=60 mL/min/1.73m^2); Estimated GFR (Non-African Ame >60 (>=60 mL/min/1.73m^2); Glucose 80 mg/dL (74-106); Potassium 4.5 mmol/L (3.5-5.1); Sodium 139 mmol/L (136-145)
== END 2025-01-27 11:47 | disposition home or self-care (01) ==
PROVIDERS: Emergency Provider Emergency Medicine; PCP Family Medicine
DX: R07.89 Other chest pain (principal); D50.9 Iron deficiency anemia, unspecified; K90.9 Intestinal malabsorption, unspecified
CPT/HCPCS: 36415; 51702; 71045; 80048; 84484; 85025; 93005; 96361; 96374; 96375; 99285; J0780; J1200

== ENCOUNTER 2025-02-14 12:00 | Outpatient (RCR) | payer MEDICAID, SELFPAY ==
[2025-01-15 08:40] VITALS: BP 129/88; PULSE 69; TEMP 36.3; O2SAT 99
[2025-01-15] MEDS: PROCHLORPERAZINE 10 MG/2 ML VIAL IV (08:43)
[2025-01-15] MEDS: DIPHENHYDRAMINE HCL 50 MG/ML VIAL IV (08:43)
[2025-01-16 13:00] VITALS: BP 115/80; PULSE 74; TEMP 36.6; O2SAT 99
[2025-01-16] MEDS: DIPHENHYDRAMINE HCL 50 MG/ML VIAL IV (13:09)
[2025-01-16] MEDS: PROCHLORPERAZINE 10 MG/2 ML VIAL IV (13:09)
[2025-01-17 08:38] VITALS: BP 143/94; PULSE 74; TEMP 36.6; O2SAT 95
[2025-01-17] MEDS: DIPHENHYDRAMINE HCL 50 MG/ML VIAL IV (08:41)
[2025-01-17] MEDS: PROCHLORPERAZINE 10 MG/2 ML VIAL IV (08:44)
[2025-01-18 08:38] VITALS: BP 104/65; PULSE 79; TEMP 36.6; O2SAT 98
[2025-01-18] MEDS: PROCHLORPERAZINE 10 MG/2 ML VIAL IV (08:42)
[2025-01-18] MEDS: DIPHENHYDRAMINE HCL 50 MG/ML VIAL IV (08:42)
[2025-01-20] MEDS: PROCHLORPERAZINE 10 MG/2 ML VIAL IV (08:40)
[2025-01-20] MEDS: DIPHENHYDRAMINE HCL 50 MG/ML VIAL IV (08:40)
[2025-01-20 08:48] VITALS: BP 103/66; PULSE 86; TEMP 36.4; O2SAT 98
[2025-01-21 08:37] VITALS: BP 118/81; PULSE 70; TEMP 36.6; O2SAT 100
[2025-01-21] MEDS: PROCHLORPERAZINE 10 MG/2 ML VIAL IV (08:48)
[2025-01-21] MEDS: DIPHENHYDRAMINE HCL 50 MG/ML VIAL IV (08:48)
[2025-01-22] MEDS: 0.9 % SODIUM CHLORIDE 1,000 ML 1000 ML IV (08:35)
[2025-01-22] MEDS: DIPHENHYDRAMINE HCL 50 MG/ML VIAL IV (08:36)
[2025-01-22] MEDS: PROCHLORPERAZINE 10 MG/2 ML VIAL IV (08:40)
[2025-01-22 08:42] VITALS: BP 131/87; PULSE 72; TEMP 36.2; O2SAT 98
[2025-01-23 08:45] VITALS: BP 119/83; PULSE 88; TEMP 36.3; O2SAT 98
[2025-01-23] MEDS: PROCHLORPERAZINE 10 MG/2 ML VIAL IV (08:48)
[2025-01-23] MEDS: DIPHENHYDRAMINE HCL 50 MG/ML VIAL IV (08:48)
[2025-01-25 10:30] VITALS: BP 131/70; PULSE 80; TEMP 36.7; O2SAT 98
[2025-01-25] MEDS: PROCHLORPERAZINE 10 MG/2 ML VIAL IV (10:41)
[2025-01-25] MEDS: DIPHENHYDRAMINE HCL 50 MG/ML VIAL IV (10:41)
[2025-01-25 11:16] LABS: Alanine Aminotransferase 30 U/L (14-59); Albumin Globulin Ratio 1.2; Albumin Level 3.3 g/dL (3.4-5.0); Alkaline Phosphatase 89 U/L (46-116); Anion Gap 7.6; Aspartate Amino Transferase 35 U/L (15-37); Blood Urea Nitrogen 5.0 mg/dL (7.0-18.0); Calcium 7.9 mg/dL (8.5-10.1); Carbon Dioxide 30.9 mmol/L (21.0-32.0); Chloride 106 mmol/L (98-107); Estimated GFR (African America >60 (>=60 mL/min/1.73m^2); Estimated GFR (Non-African Ame >60 (>=60 mL/min/1.73m^2); Globulin 2.7 g/dL; Glucose 84 mg/dL (74-106); Magnesium 2.0 mg/dL (1.8-2.4); Potassium 4.5 mmol/L (3.5-5.1); Sodium 140 mmol/L (136-145); Total Protein 6.0 g/dL (6.4-8.2)
[2025-01-26 08:13] VITALS: BP 114/80; PULSE 78; TEMP 36.2
[2025-01-26] MEDS: PROCHLORPERAZINE 10 MG/2 ML VIAL IV (08:17)
[2025-01-26] MEDS: DIPHENHYDRAMINE HCL 50 MG/ML VIAL IV (08:19)
--- NOTE | 2025-01-26 08:29 | PC.NURSE ---
rt chest chappell intact, excellent blood return. patient states her home care agency ran out of CHG dressings for chappell dressing change, old dressing removed from rt chest chappell, site clear, no reddness, edema or drainage noted, cleansed with CHG sponge, catheter still has sutures intact from approx 6 month ago insertion, instructed her to ask physician about this. new CHG dressing applied, clave cap changed, CHG cap applied
[2025-01-27] MEDS: 0.9 % SODIUM CHLORIDE 1,000 ML 1000 ML IV (08:28)
[2025-01-27] MEDS: PROCHLORPERAZINE 10 MG/2 ML VIAL IV (08:29)
[2025-01-27] MEDS: DIPHENHYDRAMINE HCL 50 MG/ML VIAL IV (08:29)
[2025-01-27 09:20] VITALS: BP 139/81; PULSE 87; TEMP 36.5; O2SAT 98
--- NOTE | 2025-01-27 09:24 | PC.NURSE ---
patient was reporting chest pain radiating down her left arm. RN advised pt to go to ER and she states you think I should? Rotor Coil Taper stated yes you should definitely get checked out. Patient ambulated off of unit without difficulty
[2025-01-28] MEDS: DIPHENHYDRAMINE HCL 50 MG/ML VIAL IV (08:03)
[2025-01-28] MEDS: PROCHLORPERAZINE 10 MG/2 ML VIAL IV (08:03)
[2025-01-29 08:30] VITALS: BP 131/86; PULSE 83; TEMP 36.3; O2SAT 98
[2025-01-29] MEDS: DIPHENHYDRAMINE HCL 50 MG/ML VIAL IV (08:34)
[2025-01-29] MEDS: PROCHLORPERAZINE 10 MG/2 ML VIAL IV (08:34)
[2025-01-30 08:20] VITALS: BP 130/85; PULSE 90; TEMP 36.7; O2SAT 98
[2025-01-30] MEDS: PROCHLORPERAZINE 10 MG/2 ML VIAL IV (08:25)
[2025-01-30] MEDS: DIPHENHYDRAMINE HCL 50 MG/ML VIAL IV (08:25)
[2025-01-31 08:30] VITALS: BP 141/75; PULSE 84; TEMP 36.2; O2SAT 97
[2025-01-31] MEDS: PROCHLORPERAZINE 10 MG/2 ML VIAL IV (08:35)
[2025-01-31] MEDS: DIPHENHYDRAMINE HCL 50 MG/ML VIAL IV (08:35)
[2025-02-01 11:00] VITALS: BP 124/81; PULSE 84; TEMP 36.6; O2SAT 98
[2025-02-01] MEDS: DIPHENHYDRAMINE HCL 50 MG/ML VIAL IV (11:02)
[2025-02-01] MEDS: PROCHLORPERAZINE 10 MG/2 ML VIAL IV (11:02)
[2025-02-02 08:11] VITALS: BP 125/86; PULSE 74; TEMP 36.6; O2SAT 98
[2025-02-02] MEDS: DIPHENHYDRAMINE HCL 50 MG/ML VIAL IV (08:15)
[2025-02-02] MEDS: PROCHLORPERAZINE 10 MG/2 ML VIAL IV (08:18)
[2025-02-03 07:52] VITALS: BP 128/85; PULSE 66; TEMP 36.7; O2SAT 98
[2025-02-03] MEDS: PROCHLORPERAZINE 10 MG/2 ML VIAL IV (08:14)
[2025-02-03] MEDS: DIPHENHYDRAMINE HCL 50 MG/ML VIAL IV (08:14)
[2025-02-04 07:51] VITALS: BP 121/79; PULSE 62; TEMP 36.4; O2SAT 100
[2025-02-04] MEDS: DIPHENHYDRAMINE HCL 50 MG/ML VIAL IV (08:01)
[2025-02-04] MEDS: PROCHLORPERAZINE 10 MG/2 ML VIAL IV (08:01)
[2025-02-04] MEDS: 0.9 % SODIUM CHLORIDE 1,000 ML 1000 ML IV (08:19)
[2025-02-05 08:59] VITALS: BP 123/79; PULSE 90; TEMP 35.7; O2SAT 93
[2025-02-05] MEDS: DIPHENHYDRAMINE HCL 50 MG/ML VIAL IV (09:03)
[2025-02-05] MEDS: PROCHLORPERAZINE 10 MG/2 ML VIAL IV (09:03)
[2025-02-06 08:40] VITALS: BP 126/87; PULSE 66; TEMP 36.1; O2SAT 96
[2025-02-06] MEDS: DIPHENHYDRAMINE HCL 50 MG/ML VIAL IV (08:44)
[2025-02-06] MEDS: PROCHLORPERAZINE 10 MG/2 ML VIAL IV (08:44)
[2025-02-08 07:45] VITALS: PULSE 69; TEMP 37.1; O2SAT 96
[2025-02-08] MEDS: DIPHENHYDRAMINE HCL 50 MG/ML VIAL IV (07:48)
[2025-02-08] MEDS: PROCHLORPERAZINE 10 MG/2 ML VIAL IV (07:48)
[2025-02-09 08:55] VITALS: BP 118/79; PULSE 80; TEMP 36.4; O2SAT 96
[2025-02-09] MEDS: DIPHENHYDRAMINE HCL 50 MG/ML VIAL IV (09:05)
[2025-02-09] MEDS: PROCHLORPERAZINE 10 MG/2 ML VIAL IV (09:05)
--- NOTE | 2025-02-09 09:21 | PC.NURSE ---
Removed old central line dressing cleansed area with chlorprep wand provided. Allowed area to dry and placed a CHG DRESSING. skin normal pink in color no other skin anomalies noted. Patient tolerated well
[2025-02-10 07:51] VITALS: BP 123/85; PULSE 79; TEMP 36.6; O2SAT 95
[2025-02-10] MEDS: PROCHLORPERAZINE 10 MG/2 ML VIAL IV (07:55)
[2025-02-10] MEDS: DIPHENHYDRAMINE HCL 50 MG/ML VIAL IV (07:55)
[2025-02-12 08:25] VITALS: BP 125/87; PULSE 82; TEMP 36.6; O2SAT 98
[2025-02-12] MEDS: PROCHLORPERAZINE 10 MG/2 ML VIAL IV (08:29)
[2025-02-12] MEDS: DIPHENHYDRAMINE HCL 50 MG/ML VIAL IV (08:29)
[2025-02-13 08:54] VITALS: BP 129/88; PULSE 82; TEMP 36.4; O2SAT 98
[2025-02-13] MEDS: DIPHENHYDRAMINE HCL 50 MG/ML VIAL IV (08:55)
[2025-02-13] MEDS: PROCHLORPERAZINE 10 MG/2 ML VIAL IV (08:55)
[2025-02-14] MEDS: DIPHENHYDRAMINE HCL 50 MG/ML VIAL IV (12:07)
[2025-02-14] MEDS: PROCHLORPERAZINE 10 MG/2 ML VIAL IV (12:10)
[2025-02-14 12:13] VITALS: BP 123/81; PULSE 100; TEMP 36.6; O2SAT 99
== END 2025-02-14 23:59 | disposition home or self-care (01) ==
LOC: INF 12:00
PROVIDERS: PCP Family Medicine; Visit Provider Family Medicine
DX: D50.9 Iron deficiency anemia, unspecified (principal); K90.9 Intestinal malabsorption, unspecified; R11.2 Nausea with vomiting, unspecified; R10.9 Unspecified abdominal pain
CPT/HCPCS: 36591; 51702; 80053; 83735; 84100; 96361; 96374; 96375; G0463; J0780; J1200